=== PATIENT | male | born 1975 | race Hispanic/Latino ===

== ENCOUNTER 2019-03-16 15:24 | Inpatient (IN) | payer OTHER ==
[~2019-03-16 15:24] MED LIST: ETOMIDATE 20 MG/10 ML INJ IV ONE
[2019-03-16] MEDS ORDERED: methylPREDNISolone Sod Succinate 125 MG/2 ML INJ ONE (15:30)
[2019-03-16] MEDS ORDERED: diphenhydrAMINE 50 MG/ML VIAL ONE (15:30)
[2019-03-16] MEDS ORDERED: ADENOSINE 6 MG/2 ML INJ ONE (15:31)
[2019-03-16] MEDS ORDERED: SODIUM CHLORIDE 0.9% 1000 ML 1,000 ML ONE (15:39)
[2019-03-16] MEDS ORDERED: ETOMIDATE 20 MG/10 ML INJ IV ONE ×3 (15:43→23:55)
[2019-03-16] MEDS ORDERED: SUCCINYLCHOLINE CHLORIDE 200 MG/10 ML INJ MDV IV ONE (15:45)
[2019-03-16] MEDS ORDERED: LIP THERAPY VASELINE TP PRN (15:50)
[2019-03-16] MEDS ORDERED: MINERAL OIL/PETROLATUM, WHITE OPHTH OINT 3.5 GM OU PRN (15:50)
[2019-03-16] MEDS ORDERED: MIDAZOLAM 5 MG/5 ML INJ MDV IV NR (16:00)
[2019-03-16] MEDS ORDERED: ASPIRIN 325 MG TAB PO ONE (16:03)
[2019-03-16] MEDS ORDERED: fentaNYL DRIP Premix 2,000 MCG/100 ML BAG IV ONE (16:09)
[2019-03-16] MEDS: fentaNYL DRIP Premix 2,000 MCG/100 ML BAG IV SCH ×2 (16:10→21:30)
[2019-03-16] MEDS ORDERED: MIDAZOLAM 5 MG/5 ML INJ MDV IV ONE ×2 (16:18→23:55)
[2019-03-16] MEDS ORDERED: MAGNESIUM SULFATE 2 GM/50 ML BAG IV ONE (16:21)
[2019-03-16] MEDS ORDERED: ACETAMINOPHEN 650 MG RECT SUPP PR ONE ×2 (16:27→23:47)
[2019-03-16] MEDS ORDERED: SODIUM CHLORIDE 0.9% 1000 ML IV SOLN IV ONE (16:28)
[2019-03-16] MEDS ORDERED: ACETAMINOPHEN 325 MG RECT SUPP PR ONE ×2 (16:31→23:47)
[2019-03-16] MEDS ORDERED: ONDANSETRON 4 MG/2 ML INJ ONE (16:35)
[2019-03-16 16:38] LABS: Calcium 6.6 mg/dL (8.4-10.2)
[2019-03-16 16:39] LABS: Hematocrit 47.1 % (35.5-45.6); Hemoglobin 15.7 gm/dl (11.8-15.2); Mean Corpuscular HGB Conc 33 % (32-34); Mean Corpuscular Volume 85 fl (84-94); Red Blood Count 5.55 M/mm3 (3.65-5.03)
[2019-03-16 16:50] LABS: Free T4 (Free Thyroxine) 0.72 ng/dL (0.76-1.46)
[2019-03-16] MEDS ORDERED: cefTRIAXone/NS 2 GM/100 ML 2 GM/100 ML BAG IV ONE (16:52)
--- NOTE | 2019-03-16 16:53 | XRay Report ---
CHEST 1 VIEW 4:20 PM INDICATION / CLINICAL INFORMATION: ETT placement. Fever and vomiting. COMPARISON: None available. FINDINGS: SUPPORT DEVICES: There is an endotracheal tube with the tip 5.8 cm above the [place]. There is a nasog astric tube which is doubled back on itself at the level of the [place] returning towards the mouth wi th the tip not seen HEART / MEDIASTINUM: The heart size and pulmonary vasculature are normal. LUNGS / PLEURA: No significant pulmonary or pleural abnormality. No pneumothorax. ADDITIONAL FINDINGS: There is moderate gaseous distention of the stomach. IMPRESSION: 1. Endotracheal tube in good position. 2. Nasogastric tube doubled back on itself at the level of the [place] with the tip not seen. The tube will need to be removed/reposition. 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 Faria Signer Name: Jovan Glass MD Signed: 03/16/2019 4:49 PM Workstation Name: [id number]
[2019-03-16] MEDS: fentaNYL 100 MCG/2 ML INJ IV PRN (17:02)
[2019-03-16 17:27] LABS: Band Neutrophils # (Manual) 2.7 K/mm3; Basophils % (Manual) 0 % (0.0-1.8); Eosinophils % (Manual) 0 % (0.0-4.3); Total Cells Counted 100
[2019-03-16 17:28] LABS: Large Platelets Few; Platelet Estimate Cons; RBC Morphology Normal
[2019-03-16 17:29] LABS: Mean Platelet Volume 10.1 fl (6-12); Platelet Count 75 K/mm3 (140-440)
[2019-03-16] MEDS: NORepinephrine/NS 4 MG-250 ML 4 MG/250 ML BAG IV SCH (17:29)
[2019-03-16] MEDS: MIDAZOLAM 100 MG in SODIUM CHLORIDE 0.9% 80 ML IV SCH (17:29)
--- NOTE | 2019-03-16 17:30 | Emergency Department Report ---
ED Altered Mental Status HPI - General Stated Complaint: POSSIBLE STROKE Time Seen by Provider: 03/16/19 16:19 Source: patient, family (friend) Mode of arrival: Stretcher Limitations: Altered Mental Status - History of Present Illness Initial Comments: 43-year-old male with a past medical history of GERD and obesity presents to the hospital with alteration in mental status. Patient presents via private vehicle. He is visiting from [place] and is staying with his friend Gio Guillermo. His friend states that he has been visiting 1 week. He'll also the patient 2 days ago when he was complaining of feeling ill and has some left eye discharge. Also mentions a possibility of a right axilla abscess. The and went to stay with his girlfriend the last 2 days and this morning when he saw the patient he was ill-appearing but sleeping. When he came back around lunch time patient condition worsened. He was having trouble breathing, confused and not making sense when he spoke, very weak and could not walk on his own, and he was diaphoretic. Patient presents via private vehicle awake, able to speak his name and follow commands. He appears to have some difficulty speaking. He is cold and clammy and diaphoretic. Initially felt the patient was presented with stroke symptoms but he did not have any deficits besides difficulty speaking. Accu-Chek was normal range. Patient is placed in the monitor and noted to have SVT rhythm in the 250s. - Related Data Home Medications Medication Instructions Recorded Confirmed Last Taken Unobtainable 03/18/19 03/18/19 Unknown Allergies Allergy/AdvReac Type Severity Reaction Status Date / Time No Known Allergies Allergy Unverified 03/16/19 17:17 ED Review of Systems ROS: Stated complaint: POSSIBLE STROKE Other details as noted in HPI ED Past Medical Hx - Medications Home Medications: Home Medications Medication Instructions Recorded Confirmed Last Taken Type Unobtainable 03/18/19 03/18/19 Unknown History ED Physical Exam - Other Other exam information: Gen.: Acute distress Head: Atraumatic Eyes: left eye with yellow drainage ENT: Dry mucous membranes, posterior tonsillar swelling without exudates, no stridor, uvula midline Neck: Normal appearance, no posterior midline tenderness, no meningismus Chest: Clear to auscultation bilaterally, tachypnea Cardiovascular: Tachycardic regular rhythm Abdomen: Normal appearance, soft, nontender, no rebound or guarding, normal bowel sounds Back: Normal appearance, nontender Extremity: Full range of motion, normal appearance Neuro: Patient alert but unable to speak fluently. Able to answer questions intermittently. 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 Right axillary redness and fullness cellullits vs abscess, no fluctuance ED Course Vital Signs 03/16/19 03/16/19 03/16/19 15:26 15:28 15:30 Temperature Pulse Rate 195 H 204 H Respiratory 29 H 28 H 28 H Rate Blood Pressure 103/30 O2 Sat by Pulse 82 L 90 Oximetry 03/16/19 03/16/19 03/16/19 15:32 15:34 15:36 Temperature Pulse Rate 132 H 144 H 151 H Respiratory 32 H 29 H 19 Rate Blood Pressure 103/30 103/30 103/30 O2 Sat by Pulse 81 L 76 L 96 Oximetry 03/16/19 03/16/19 03/16/19 15:38 15:40 15:42 Temperature Pulse Rate 136 H 134 H Respiratory 41 H 57 H 55 H Rate Blood Pressure 74/54 92/55 92/55 O2 Sat by Pulse 88 89 Oximetry 03/16/19 03/16/19 03/16/19 15:44 15:46 15:48 Temperature Pulse Rate 134 H 137 H 126 H Respiratory 56 H 34 H 26 H Rate Blood Pressure 92/55 79/43 117/77 O2 Sat by Pulse 70 L 54 L Oximetry 03/16/19 03/16/19 03/16/19 15:50 15:52 15:54 Temperature Pulse Rate 135 H 126 H 122 H Respiratory 30 H 30 H 29 H Rate Blood Pressure 117/77 127/72 123/54 O2 Sat by Pulse 70 L 90 Oximetry 03/16/19 03/16/19 03/16/19 15:56 15:58 16:00 Temperature Pulse Rate 124 H 126 H 128 H Respiratory 28 H 22 19 Rate Blood Pressure 140/84 118/65 118/61 O2 Sat by Pulse 68 L 59 L 58 L Oximetry 03/16/19 03/16/19 03/16/19 16:02 16:04 16:05 Temperature Pulse Rate 128 H 128 H 132 H Respiratory 29 H 31 H Rate Blood Pressure 112/53 103/51 123/40 O2 Sat by Pulse 55 L 62 L 94 Oximetry 03/16/19 03/16/19 03/16/19 16:06 16:08 16:10 Temperature Pulse Rate 129 H 130 H 130 H Respiratory 21 45 H 39 H Rate Blood Pressure 110/56 110/56 123/40 O2 Sat by Pulse 58 L 92 85 Oximetry 03/16/19 03/16/19 03/16/19 16:12 16:14 16:16 Temperature Pulse Rate 127 H 132 H 133 H Respiratory 31 H 28 H 17 Rate Blood Pressure 123/40 106/43 106/43 O2 Sat by Pulse 94 84 Oximetry 03/16/19 03/16/19 03/16/19 16:18 16:20 16:22 Temperature Pulse Rate 132 H 133 H 130 H Respiratory 30 H 44 H 41 H Rate Blood Pressure 135/66 120/65 120/65 O2 Sat by Pulse Oximetry 03/16/19 03/16/19 03/16/19 16:24 16:25 16:26 Temperature 105 F H Pulse Rate 132 H 132 H Respiratory 14 19 Rate Blood Pressure 120/65 120/65 O2 Sat by Pulse Oximetry 03/16/19 03/16/19 03/16/19 16:28 16:30 16:32 Temperature Pulse Rate 134 H 134 H 133 H Respiratory 25 H 37 H 25 H Rate Blood Pressure 120/65 180/99 180/99 O2 Sat by Pulse 94 95 92 Oximetry 03/16/19 03/16/19 03/16/19 16:34 16:59 17:34 Temperature Pulse Rate 135 H 133 H 122 H Respiratory 43 H 36 H Rate Blood Pressure 180/99 98/50 180/99 O2 Sat by Pulse 97 93 100 Oximetry 03/16/19 03/16/19 03/16/19 18:10 18:51 18:53 Temperature 101.5 F H Pulse Rate 123 H 124 H Respiratory 20 25 H Rate Blood Pressure 93/43 93/43 O2 Sat by Pulse 100 100 Oximetry 03/16/19 03/16/19 03/16/19 18:55 18:57 18:59 Temperature Pulse Rate 124 H 124 H 124 H Respiratory 26 H 25 H 26 H Rate Blood Pressure 104/53 104/53 104/53 O2 Sat by Pulse 100 100 100 Oximetry 03/16/19 03/16/19 03/16/19 19:00 19:03 19:05 Temperature Pulse Rate 124 H 124 H 125 H Respiratory 25 H 25 H 26 H Rate Blood Pressure 108/51 108/51 105/56 O2 Sat by Pulse 100 100 100 Oximetry 03/16/19 03/16/19 03/16/19 19:07 19:09 19:10 Temperature Pulse Rate 125 H 124 H 125 H Respiratory 24 25 H 25 H Rate Blood Pressure 105/56 105/56 108/54 O2 Sat by Pulse 100 100 100 Oximetry 03/16/19 03/16/19 03/16/19 19:13 19:15 19:17 Temperature Pulse Rate 126 H 125 H 125 H Respiratory 22 25 H 25 H Rate Blood Pressure 108/54 108/45 108/45 O2 Sat by Pulse 100 100 100 Oximetry 03/16/19 03/16/19 03/16/19 19:19 19:20 19:23 Temperature Pulse Rate 125 H 125 H 126 H Respiratory 25 H 24 27 H Rate Blood Pressure 108/45 93/56 93/56 O2 Sat by Pulse 100 100 100 Oximetry 03/16/19 03/16/19 03/16/19 19:25 19:27 19:29 Temperature Pulse Rate 125 H 125 H 126 H Respiratory 28 H 25 H 24 Rate Blood Pressure 104/59 104/59 104/59 O2 Sat by Pulse 100 100 100 Oximetry 03/16/19 03/16/19 03/16/19 19:30 19:33 19:35 Temperature Pulse Rate 126 H 126 H 126 H Respiratory 23 24 25 H Rate Blood Pressure 89/53 105/54 110/60 O2 Sat by Pulse 100 100 100 Oximetry 03/16/19 03/16/19 03/16/19 19:37 19:39 19:40 Temperature Pulse Rate 126 H 126 H 126 H Respiratory 21 29 H 20 Rate Blood Pressure 110/60 110/60 97/57 O2 Sat by Pulse 100 100 100 Oximetry 03/16/19 03/16/19 03/16/19 19:43 19:45 19:47 Temperature Pulse Rate 126 H 126 H 127 H Respiratory 19 25 H 25 H Rate Blood Pressure 97/57 92/59 92/59 O2 Sat by Pulse 100 100 100 Oximetry 03/16/19 03/16/19 03/16/19 19:49 19:50 19:53 Temperature Pulse Rate 127 H 127 H 127 H Respiratory 26 H 24 25 H Rate Blood Pressure 92/59 86/55 86/55 O2 Sat by Pulse 100 100 100 Oximetry 03/16/19 03/16/19 03/16/19 19:55 19:57 19:59 Temperature Pulse Rate 127 H 127 H 127 H Respiratory 24 24 25 H Rate Blood Pressure 106/54 106/54 106/54 O2 Sat by Pulse 100 100 99 Oximetry 03/16/19 03/16/19 03/16/19 20:00 20:03 20:05 Temperature Pulse Rate 128 H 127 H 128 H Respiratory 27 H 28 H 30 H Rate Blood Pressure 103/55 103/55 110/54 O2 Sat by Pulse 99 100 100 Oximetry 03/16/19 03/16/19 03/16/19 20:07 20:09 20:10 Temperature Pulse Rate 127 H 127 H 128 H Respiratory 27 H 25 H 25 H Rate Blood Pressure 110/54 110/54 103/54 O2 Sat by Pulse 100 100 100 Oximetry 03/16/19 03/16/19 03/16/19 20:13 20:15 20:17 Temperature Pulse Rate 127 H 127 H 127 H Respiratory 25 H 26 H 25 H Rate Blood Pressure 103/54 107/51 107/51 O2 Sat by Pulse 100 100 100 Oximetry 03/16/19 03/16/19 03/16/19 20:18 20:19 20:20 Temperature 103 F H Pulse Rate 127 H 127 H Respiratory 24 25 H Rate Blood Pressure 107/51 101/54 O2 Sat by Pulse 100 100 Oximetry 03/16/19 03/16/19 03/16/19 20:23 20:25 20:27 Temperature Pulse Rate 129 H 127 H 127 H Respiratory 27 H 25 H 25 H Rate Blood Pressure 101/54 99/45 99/45 O2 Sat by Pulse 100 99 100 Oximetry 03/16/19 03/16/19 03/16/19 20:29 20:30 20:36 Temperature Pulse Rate 127 H 127 H 127 H Respiratory 26 H 27 H 19 Rate Blood Pressure 99/45 99/45 102/45 O2 Sat by Pulse 99 98 100 Oximetry 03/16/19 03/16/19 03/16/19 20:40 20:45 20:50 Temperature Pulse Rate 128 H 127 H 127 H Respiratory 25 H 25 H 28 H Rate Blood Pressure 107/41 96/44 O2 Sat by Pulse 98 99 100 Oximetry 03/16/19 03/16/19 03/16/19 20:55 21:00 21:05 Temperature Pulse Rate 127 H 128 H 127 H Respiratory 27 H 25 H 32 H Rate Blood Pressure 92/45 93/46 93/46 O2 Sat by Pulse 97 86 87 Oximetry 03/16/19 03/16/19 03/16/19 21:10 21:15 21:20 Temperature Pulse Rate 127 H 127 H 127 H Respiratory 33 H 29 H 25 H Rate Blood Pressure 99/49 93/45 98/39 O2 Sat by Pulse 63 L 21 L 74 L Oximetry 03/16/19 03/16/19 03/16/19 21:25 21:30 21:35 Temperature Pulse Rate 128 H 128 H 127 H Respiratory 25 H 29 H 33 H Rate Blood Pressure 98/39 93/45 89/39 O2 Sat by Pulse 99 100 100 Oximetry 03/16/19 03/16/19 03/16/19 21:40 21:45 21:51 Temperature Pulse Rate 128 H 128 H 128 H Respiratory 38 H 45 H 28 H Rate Blood Pressure 95/46 95/46 90/37 O2 Sat by Pulse 100 100 100 Oximetry 03/16/19 03/16/19 03/16/19 21:55 22:01 22:05 Temperature Pulse Rate 128 H 129 H 129 H Respiratory 43 H 53 H 52 H Rate Blood Pressure 92/39 99/37 93/45 O2 Sat by Pulse 100 100 100 Oximetry 03/16/19 03/16/19 03/16/19 22:11 22:15 22:20 Temperature Pulse Rate 129 H 129 H 129 H Respiratory 46 H 35 H 32 H Rate Blood Pressure 87/39 87/39 86/38 O2 Sat by Pulse 100 100 100 Oximetry 03/16/19 03/16/19 03/16/19 22:25 22:30 22:35 Temperature Pulse Rate 129 H 129 H 129 H Respiratory 56 H 29 H 42 H Rate Blood Pressure 86/38 88/41 88/41 O2 Sat by Pulse 100 100 100 Oximetry 03/16/19 03/16/19 03/16/19 22:41 22:45 22:50 Temperature Pulse Rate 129 H 129 H 129 H Respiratory 56 H 52 H 46 H Rate Blood Pressure 77/38 72/43 80/37 O2 Sat by Pulse 100 100 100 Oximetry 03/16/19 03/16/19 03/16/19 22:55 23:00 23:05 Temperature Pulse Rate 133 H 130 H 130 H Respiratory 36 H 24 28 H Rate Blood Pressure 76/45 86/41 83/36 O2 Sat by Pulse 100 100 99 Oximetry 03/16/19 03/16/19 03/16/19 23:10 23:15 23:20 Temperature Pulse Rate 131 H 131 H 131 H Respiratory 32 H 36 H 34 H Rate Blood Pressure 88/46 79/43 86/47 O2 Sat by Pulse 99 99 98 Oximetry 03/16/19 03/16/19 03/16/19 23:25 23:30 23:35 Temperature Pulse Rate 131 H 132 H 132 H Respiratory 53 H 40 H 56 H Rate Blood Pressure 90/48 84/47 83/49 O2 Sat by Pulse 98 97 97 Oximetry 03/16/19 03/16/19 03/16/19 23:40 23:45 23:50 Temperature Pulse Rate 131 H 131 H 132 H Respiratory 25 H 40 H 32 H Rate Blood Pressure 93/53 91/53 92/53 O2 Sat by Pulse 94 96 94 Oximetry 03/16/19 03/17/19 23:55 00:00 Temperature 105.2 F H Pulse Rate 131 H 131 H Respiratory 57 H 57 H Rate Blood Pressure 94/50 86/49 O2 Sat by Pulse 96 95 Oximetry - Reevaluation(s) Reevaluation #1: 03/16/19 I was at the bedside immediately upon patient's arrival. The alarm security or surveillance monitor revealed a SVT rate in the 250s. Patient had to have his chest shaved so that paddles with stick to his chest. Stat IV access was obtained. Patient was informed that we will be giving him medications and shocking him. Patient received etomidate 10 mg IV followed by a 50 J synchronized shock of the rhythm deteriorated to a polymorphic V. tach and then monomorphic V. tach and then patient was defibrillated at 325 J. Patient rhythm then became sinus. Patient remained tachypnea and also so preparations made for intubation. Patient started to become a little bit more alert as etomidate wore off however he was still confused, tachypnea, and clammy. Patient was then intubated after rec eiving etomidate 20 mg followed by succinylcholine 100 mg. Initial vital signs after conversion of rhythm to sinus showed a stable blood pressure. Central line was placed due to patient's acute presentation and illness and labs were obtained. Cardiology was consult this that initial tachycardic rhythm. Dr. Pitts came to the bedside to evaluate patient. Rectal temp was checked and showed a temp of 105. We now suspect that patient had SVT secondary to sepsis. Patient received ice packs to the groin and axilla and 975 mg of rectal Tylenol was administered. Sepsis protocol was initiated including 30 mg per KG bolus of normal saline. Patient was apparently treated with Rocephin 2 g as well as vancomycin to cover for meningitis due to unknown source and fever in the setting of altered mental status. Nurse was able to contact patient's ex- who reported that he only had a hist ory of GERD he had no known allergies. He did receive a call from the patient's brother Valente Caballero who lives in [place]. He was requesting information about the patient. There is no current healthcare proxy. Patient has a 8-year-old son and is estranged from his ex- and estranged from his family. They were given information the patient is critical in the ED. contact numbers of people who provided HPI Brother: Valente Caballero [phone] Friend who brought pt to the ED: Gio Huff [phone] - Consultations Consultation #1: After shocking the patient cardiology was consulted and Dr. Pitts came to the bedside. He suspects sepsis as a cause of patient's arrhythmia. 03/16/19 18:42 case d/w DR ulloa critical care attending. Informed of crtitical status and lab results. ct pending 03/16/19 19:34 case d/w Nephrology Dr beck, he will place additional orders 03/16/19 29:[address] Dow general surgeon. 03/16/19 20:41 - Central Line Placement Right Femoral Consent Obtained: emergent situation Time Out Performed: Yes Patient Placed on Monitor/Pulse Ox: Yes MD Prep: mask, gown, gloves Central Line Prep: Chlorhexidine scrub Local Anesthesia Used: Lidocaine 1% Amount of Anesthesia Used (mls): 5 Ultrasound Used for Placement: No Central Line Lumen Inserted: triple Bloods Obtained for Lab: Yes Central Line Position: good blood return Dressing Applied: Tegaderm Patient Tolerated Procedure: well Complications: none - Intubation Time Out Performed: Yes Sedative: Etomidate Mg Given: 20 Paralytic: Succinylcholine Mg Given: 100 Laryngoscope: Constantino Size: 4 ET Tube Size: 7.5 Tube Secured Depth (cm): 22 Tube Secured Location: teeth Tube Placement Confirmation: visualized tube passing t, equal breath sounds bilat, no breath sounds over epi, confirmation by capnometr Patient Tolerated Procedure: well Intubation Complications: none - Lab Data Result diagrams: 03/19/19 04:00 03/19/19 04:00 Lab Results 03/16/19 03/16/19 03/16/19 Range/Units 15:32 16:03 16:05 WBC 27.0 H (4.5-11.0) K/mm3 RBC 5.55 H (3.65-5.03) M/mm3 Hgb 15.7 H (11.8-15.2) gm/dl Hct 47.1 H (35.5-45.6) % MCV 85 (84-94) fl MCH 28 (28-32) pg MCHC 33 (32-34) % RDW 15.0 (13.2-15.2) % Plt Count 75 L (140-440) K/mm3 Add Manual Diff Complete Total Counted 100 Seg Neutrophils % 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 Seg Neuts % (Manual) 85.0 H (40.0-70.0) % Band Neutrophils % 10.0 % Lymphocytes % (Manual) 2.0 L (13.4-35.0) % Reactive Lymphs % (Man) 0 % Monocytes % (Manual) 3.0 (0.0-7.3) % Eosinophils % (Manual) 0 (0.0-4.3) % Basophils % (Manual) 0 (0.0-1.8) % Metamyelocytes % 0 % Myelocytes % 0 % Promyelocytes % 0 % Blast Cells % 0 % Nucleated RBC % Not Reportable Seg Neutrophils # Man 23.0 H (1.8-7.7) K/mm3 Band Neutrophils # 2.7 K/mm3 Lymphocytes # (Manual) 0.5 L (1.2-5.4) K/mm3 Abs React Lymphs (Man) 0.0 K/mm3 Monocytes # (Manual) 0.8 (0.0-0.8) K/mm3 Eosinophils # (Manual) 0.0 (0.0-0.4) K/mm3 Basophils # (Manual) 0.0 (0.0-0.1) K/mm3 Metamyelocytes # 0.0 K/mm3 Myelocytes # 0.0 K/mm3 Promyelocytes # 0.0 K/mm3 Blast Cells # 0.0 K/mm3 WBC Morphology Not Reportable Hypersegmented Neuts Not Reportable Hyposegmented Neuts Not Reportable Hypogranular Neuts Not Reportable Smudge Cells Not Reportable Toxic Granulation Not Reportable Toxic Vacuolation Not Reportable Dohle Bodies Not Reportable Pelger-Huet Anomaly Not Reportable Joyce Rods Not Reportable Platelet Estimate Cons Clumped Platelets Not Reportable Plt Clumps, EDTA Not Reportable Large Platelets Few Giant Platelets Not Reportable Platelet Satelliting Not Reportable Plt Morphology Comment Not Reportable RBC Morphology Normal Dimorphic RBCs Not Reportable Polychromasia Not Reportable Hypochromasia Not Reportable Poikilocytosis Not Reportable Anisocytosis Not Reportable Microcytosis Not Reportable Macrocytosis Not Reportable Spherocytes Not Reportable Pappenheimer Bodies Not Reportable Sickle Cells Not Reportable Target Cells Not Reportable Tear Drop Cells Not Reportable Ovalocytes Not Reportable Helmet Cells Not Reportable Shrestha-Rosa Sanchez Bodies Not Reportable [place] Rings Not Reportable [place] Cells Not Reportable Bite Cells Not Reportable Crenated Cell Not Reportable Elliptocytes Not Reportable Acanthocytes (Spur) Not Reportable Rouleaux Not Reportable Hemoglobin C Crystals Not Reportable Schistocytes Not Reportable Malaria parasites Not Reportable Phil Bodies Not Reportable Hem Pathologist Commnt No PT (12.2-14.9) Sec. INR (0.87-1.13) APTT (24.2-36.6) Sec. POC ABG pH (7.35-7.45) POC ABG pCO2 (35-45) POC ABG pO2 (80-105) POC ABG HCO3 (22-26 mml/L) POC ABG Total CO2 (23-27mmol/L) POC ABG O2 Sat POC ABG Base Excess ((-2) - (+3)mmol/L) FiO2 % Sodium 127 L (137-145) mmol/L Potassium 4.3 (3.6-5.0) mmol/L Chloride 87.8 L (98-107) mmol/L Carbon Dioxide 17 L (22-30) mmol/L Anion Gap 27 mmol/L BUN 49 H (9-20) mg/dL Creatinine 5.8 H (0.8-1.5) mg/dL Estimated GFR 13 ml/min BUN/Creatinine Ratio 8 % Glucose 150 H (75-100) mg/dL POC Glucose 118 H (70-105) Lactic Acid (0.7-2.0) mmol/L Calcium 6.6 L (8.4-10.2) mg/dL Magnesium 1.10 L (1.7-2.3) mg/dL Total Bilirubin (0.1-1.2) mg/dL Direct Bilirubin (0-0.2) mg/dL Indirect Bilirubin mg/dL AST (5-40) units/L ALT (7-56) units/L Alkaline Phosphatase (35-129) units/L Total Creatine Kinase 98975 H (55-170) units/L CK-MB (CK-2) (0.0-4.0) ng/mL CK-MB (CK-2) Rel Index (0-4) Troponin T 0.023 (0.00-0.029) ng/mL Total Protein (6.3-8.2) g/dL Albumin (3.9-5) g/dL Albumin/Globulin Ratio % TSH (0.270-4.200) mlU/mL Free T4 (0.76-1.46) ng/dL Salicylates (2.8-20.0) mg/dL Acetaminophen (10.0-30.0) ug/mL Plasma/Serum Alcohol (0-0.07) % 03/16/19 03/16/19 03/16/19 Range/Units 16:59 17:05 17:05 WBC (4.5-11.0) K/mm3 RBC (3.65-5.03) M/mm3 Hgb (11.8-15.2) gm/dl Hct (35.5-45.6) % MCV (84-94) fl MCH (28-32) pg MCHC (32-34) % RDW (13.2-15.2) % Plt Count (140-440) K/mm3 Add Manual Diff Total Counted Seg Neutrophils % Seg Neuts % (Manual) (40.0-70.0) % Band Neutrophils % % Lymphocytes % (Manual) (13.4-35.0) % Reactive Lymphs % (Man) % Monocytes % (Manual) (0.0-7.3) % Eosinophils % (Manual) (0.0-4.3) % Basophils % (Manual) (0.0-1.8) % Metamyelocytes % % Myelocytes % % Promyelocytes % % Blast Cells % % Nucleated RBC % Seg Neutrophils # Man (1.8-7.7) K/mm3 Band Neutrophils # K/mm3 Lymphocytes # (Manual) (1.2-5.4) K/mm3 Abs React Lymphs (Man) K/mm3 Monocytes # (Manual) (0.0-0.8) K/mm3 Eosinophils # (Manual) (0.0-0.4) K/mm3 Basophils # (Manual) (0.0-0.1) K/mm3 Metamyelocytes # K/mm3 Myelocytes # K/mm3 Promyelocytes # K/mm3 Blast Cells # K/mm3 WBC Morphology Hypersegmented Neuts Hyposegmented Neuts Hypogranular Neuts Smudge Cells Toxic Granulation Toxic Vacuolation Dohle Bodies Pelger-Huet Anomaly Joyce Rods Platelet Estimate Clumped Platelets Plt Clumps, EDTA Large Platelets Giant Platelets Platelet Satelliting Plt Morphology Comment RBC Morphology Dimorphic RBCs Polychromasia Hypochromasia Poikilocytosis Anisocytosis Microcytosis Macrocytosis Spherocytes Pappenheimer Bodies Sickle Cells Target Cells Tear Drop Cells Ovalocytes Helmet Cells Shrestha-Rosa Sanchez Bodies [place] Rings Samantha Cells Bite Cells Crenated Cell Elliptocytes Acanthocytes (Spur) Rouleaux Hemoglobin C Crystals Schistocytes Malaria parasites Phil Bodies Hem Pathologist Commnt PT (12.2-14.9) Sec. INR (0.87-1.13) APTT (24.2-36.6) Sec. POC ABG pH 7.297 L (7.35-7.45) POC ABG pCO2 33.0 L (35-45) POC ABG pO2 104 (80-105) POC ABG HCO3 16.1 (22-26 mml/L) POC ABG Total CO2 17 (23-27mmol/L) POC ABG O2 Sat 97 POC ABG Base Excess -10 ((-2) - (+3)mmol/L) FiO2 100 % Sodium (137-145) mmol/L Potassium (3.6-5.0) mmol/L Chloride (98-107) mmol/L Carbon Dioxide (22-30) mmol/L Anion Gap mmol/L BUN (9-20) mg/dL Creatinine (0.8-1.5) mg/dL Estimated GFR ml/min BUN/Creatinine Ratio % Glucose (75-100) mg/dL POC Glucose (70-105) Lactic Acid (0.7-2.0) mmol/L Calcium (8.4-10.2) mg/dL Magnesium (1.7-2.3) mg/dL Total Bilirubin (0.1-1.2) mg/dL Direct Bilirubin (0-0.2) mg/dL Indirect Bilirubin mg/dL AST (5-40) units/L ALT (7-56) units/L Alkaline Phosphatase (35-129) units/L Total Creatine Kinase 26571 H (55-170) units/L CK-MB (CK-2) 83.1 H (0.0-4.0) ng/mL CK-MB (CK-2) Rel Index 0.1 (0-4) Troponin T (0.00-0.029) ng/mL Total Protein (6.3-8.2) g/dL Albumin (3.9-5) g/dL Albumin/Globulin Ratio % TSH 2.200 (0.270-4.200) mlU/mL Free T4 0.72 L (0.76-1.46) ng/dL Salicylates (2.8-20.0) mg/dL Acetaminophen (10.0-30.0) ug/mL Plasma/Serum Alcohol (0-0.07) % 03/16/19 03/16/19 03/16/19 Range/Units 17:05 17:05 17:05 WBC (4.5-11.0) K/mm3 RBC (3.65-5.03) M/mm3 Hgb (11.8-15.2) gm/dl Hct (35.5-45.6) % MCV (84-94) fl MCH (28-32) pg MCHC (32-34) % RDW (13.2-15.2) % Plt Count (140-440) K/mm3 Add Manual Diff Total Counted Seg Neutrophils % Seg Neuts % (Manual) (40.0-70.0) % Band Neutrophils % % Lymphocytes % (Manual) (13.4-35.0) % Reactive Lymphs % (Man) % Monocytes % (Manual) (0.0-7.3) % Eosinophils % (Manual) (0.0-4.3) % Basophils % (Manual) (0.0-1.8) % Metamyelocytes % % Myelocytes % % Promyelocytes % % Blast Cells % % Nucleated RBC % Seg Neutrophils # Man (1.8-7.7) K/mm3 Band Neutrophils # K/mm3 Lymphocytes # (Manual) (1.2-5.4) K/mm3 Abs React Lymphs (Man) K/mm3 Monocytes # (Manual) (0.0-0.8) K/mm3 Eosinophils # (Manual) (0.0-0.4) K/mm3 Basophils # (Manual) (0.0-0.1) K/mm3 Metamyelocytes # K/mm3 Myelocytes # K/mm3 Promyelocytes # K/mm3 Blast Cells # K/mm3 WBC Morphology Hypersegmented Neuts Hyposegmented Neuts Hypogranular Neuts Smudge Cells Toxic Granulation Toxic Vacuolation Dohle Bodies Pelger-Huet Anomaly Joyce Rods Platelet Estimate Clumped Platelets Plt Clumps, EDTA Large Platelets Giant Platelets Platelet Satelliting Plt Morphology Comment RBC Morphology Dimorphic RBCs Polychromasia Hypochromasia Poikilocytosis Anisocytosis Microcytosis Macrocytosis Spherocytes Pappenheimer Bodies Sickle Cells Target Cells Tear Drop Cells Ovalocytes Helmet Cells Shrestha-Rosa Sanchez Bodies [place] Samantha Cells Bite Cells Crenated Cell Elliptocytes Acanthocytes (Spur) Rouleaux Hemoglobin C Crystals Schistocytes Malaria parasites Phil Bodies Hem Pathologist Commnt PT (12.2-14.9) Sec. INR (0.87-1.13) APTT (24.2-36.6) Sec. POC ABG pH (7.35-7.45) POC ABG pCO2 (35-45) POC ABG pO2 (80-105) POC ABG HCO3 (22-26 mml/L) POC ABG Total CO2 (23-27mmol/L) POC ABG O2 Sat POC ABG Base Excess ((-2) - (+3)mmol/L) FiO2 % Sodium (137-145) mmol/L Potassium (3.6-5.0) mmol/L Chloride (98-107) mmol/L Carbon Dioxide (22-30) mmol/L Anion Gap mmol/L BUN (9-20) mg/dL Creatinine (0.8-1.5) mg/dL Estimated GFR ml/min BUN/Creatinine Ratio % Glucose (75-100) mg/dL POC Glucose (70-105) Lactic Acid 5.10 H* (0.7-2.0) mmol/L Calcium (8.4-10.2) mg/dL Magnesium (1.7-2.3) mg/dL Total Bilirubin (0.1-1.2) mg/dL Direct Bilirubin (0-0.2) mg/dL Indirect Bilirubin mg/dL AST (5-40) units/L ALT (7-56) units/L Alkaline Phosphatase (35-129) units/L Total Creatine Kinase (55-170) units/L CK-MB (CK-2) (0.0-4.0) ng/mL CK-MB (CK-2) Rel Index (0-4) Troponin T (0.00-0.029) ng/mL Total Protein (6.3-8.2) g/dL Albumin (3.9-5) g/dL Albumin/Globulin Ratio % TSH (0.270-4.200) mlU/mL Free T4 (0.76-1.46) ng/dL Salicylates < 0.3 L (2.8-20.0) mg/dL Acetaminophen < 5.0 L (10.0-30.0) ug/mL Plasma/Serum Alcohol (0-0.07) % 03/16/19 03/16/19 03/16/19 Range/Units 17:05 17:05 17:05 WBC (4.5-11.0) K/mm3 RBC (3.65-5.03) M/mm3 Hgb (11.8-15.2) gm/dl Hct (35.5-45.6) % MCV (84-94) fl MCH (28-32) pg MCHC (32-34) % RDW (13.2-15.2) % Plt Count (140-440) K/mm3 Add Manual Diff Total Counted Seg Neutrophils % Seg Neuts % (Manual) (40.0-70.0) % Band Neutrophils % % Lymphocytes % (Manual) (13.4-35.0) % Reactive Lymphs % (Man) % Monocytes % (Manual) (0.0-7.3) % Eosinophils % (Manual) (0.0-4.3) % Basophils % (Manual) (0.0-1.8) % Metamyelocytes % % Myelocytes % % Promyelocytes % % Blast Cells % % Nucleated RBC % Seg Neutrophils # Man (1.8-7.7) K/mm3 Band Neutrophils # K/mm3 Lymphocytes # (Manual) (1.2-5.4) K/mm3 Abs React Lymphs (Man) K/mm3 Monocytes # (Manual) (0.0-0.8) K/mm3 Eosinophils # (Manual) (0.0-0.4) K/mm3 Basophils # (Manual) (0.0-0.1) K/mm3 Metamyelocytes # K/mm3 Myelocytes # K/mm3 Promyelocytes # K/mm3 Blast Cells # K/mm3 WBC Morphology Hypersegmented Neuts Hyposegmented Neuts Hypogranular Neuts Smudge Cells Toxic Granulation Toxic Vacuolation Dohle Bodies Pelger-Huet Anomaly Joyce Rods Platelet Estimate Clumped Platelets Plt Clumps, EDTA Large Platelets Giant Platelets Platelet Satelliting Plt Morphology Comment RBC Morphology Dimorphic RBCs Polychromasia Hypochromasia Poikilocytosis Anisocytosis Microcytosis Macrocytosis Spherocytes Pappenheimer Bodies Sickle Cells Target Cells Tear Drop Cells Ovalocytes Helmet Cells Shrestha-Rosa Sanchez Bodies [place] Samantha Cells Bite Cells Crenated Cell Elliptocytes Acanthocytes (Spur) Rouleaux Hemoglobin C Crystals Schistocytes Malaria parasites Phil Bodies Hem Pathologist Commnt PT 15.9 H (12.2-14.9) Sec. INR 1.30 H (0.87-1.13) APTT 31.7 (24.2-36.6) Sec. POC ABG pH (7.35-7.45) POC ABG pCO2 (35-45) POC ABG pO2 (80-105) POC ABG HCO3 (22-26 mml/L) POC ABG Total CO2 (23-27mmol/L) POC ABG O2 Sat POC ABG Base Excess ((-2) - (+3)mmol/L) FiO2 % Sodium (137-145) mmol/L Potassium (3.6-5.0) mmol/L Chloride (98-107) mmol/L Carbon Dioxide (22-30) mmol/L Anion Gap mmol/L BUN (9-20) mg/dL Creatinine (0.8-1.5) mg/dL Estimated GFR ml/min BUN/Creatinine Ratio % Glucose (75-100) mg/dL POC Glucose (70-105) Lactic Acid (0.7-2.0) mmol/L Calcium (8.4-10.2) mg/dL Magnesium (1.7-2.3) mg/dL Total Bilirubin 6.20 H (0.1-1.2) mg/dL Direct Bilirubin 5.9 H (0-0.2) mg/dL Indirect Bilirubin 0.3 mg/dL AST 800 H (5-40) units/L ALT 120 H (7-56) units/L Alkaline Phosphatase 51 (35-129) units/L Total Creatine Kinase (55-170) units/L CK-MB (CK-2) (0.0-4.0) ng/mL CK-MB (CK-2) Rel Index (0-4) Troponin T (0.00-0.029) ng/mL Total Protein 4.4 L (6.3-8.2) g/dL Albumin 2.4 L (3.9-5) g/dL Albumin/Globulin Ratio 1.2 % TSH (0.270-4.200) mlU/mL Free T4 (0.76-1.46) ng/dL Salicylates (2.8-20.0) mg/dL Acetaminophen (10.0-30.0) ug/mL Plasma/Serum Alcohol < 0.01 (0-0.07) % 03/16/19 03/16/19 Range/Units 20:35 21:45 WBC (4.5-11.0) K/mm3 RBC (3.65-5.03) M/mm3 Hgb (11.8-15.2) gm/dl Hct (35.5-45.6) % MCV (84-94) fl MCH (28-32) pg MCHC (32-34) % RDW (13.2-15.2) % Plt Count (140-440) K/mm3 Add Manual Diff Total Counted Seg Neutrophils % Seg Neuts % (Manual) (40.0-70.0) % Band Neutrophils % % Lymphocytes % (Manual) (13.4-35.0) % Reactive Lymphs % (Man) % Monocytes % (Manual) (0.0-7.3) % Eosinophils % (Manual) (0.0-4.3) % Basophils % (Manual) (0.0-1.8) % Metamyelocytes % % Myelocytes % % Promyelocytes % % Blast Cells % % Nucleated RBC % Seg Neutrophils # Man (1.8-7.7) K/mm3 Band Neutrophils # K/mm3 Lymphocytes # (Manual) (1.2-5.4) K/mm3 Abs React Lymphs (Man) K/mm3 Monocytes # (Manual) (0.0-0.8) K/mm3 Eosinophils # (Manual) (0.0-0.4) K/mm3 Basophils # (Manual) (0.0-0.1) K/mm3 Metamyelocytes # K/mm3 Myelocytes # K/mm3 Promyelocytes # K/mm3 Blast Cells # K/mm3 WBC Morphology Hypersegmented Neuts Hyposegmented Neuts Hypogranular Neuts Smudge Cells Toxic Granulation Toxic Vacuolation Dohle Bodies Pelger-Huet Anomaly Joyce Rods Platelet Estimate Clumped Platelets Plt Clumps, EDTA Large Platelets Giant Platelets Platelet Satelliting Plt Morphology Comment RBC Morphology Dimorphic RBCs Polychromasia Hypochromasia Poikilocytosis Anisocytosis Microcytosis Macrocytosis Spherocytes Pappenheimer Bodies Sickle Cells Target Cells Tear Drop Cells Ovalocytes Helmet Cells Shrestha-Rosa Sanchez Bodies [place] Cells Bite Cells Crenated Cell Elliptocytes Acanthocytes (Spur) Rouleaux Hemoglobin C Crystals Schistocytes Malaria parasites Phil Bodies Hem Pathologist Commnt PT (12.2-14.9) Sec. INR (0.87-1.13) APTT (24.2-36.6) Sec. POC ABG pH (7.35-7.45) POC ABG pCO2 (35-45) POC ABG pO2 (80-105) POC ABG HCO3 (22-26 mml/L) POC ABG Total CO2 (23-27mmol/L) POC ABG O2 Sat POC ABG Base Excess ((-2) - (+3)mmol/L) FiO2 % Sodium (137-145) mmol/L Potassium (3.6-5.0) mmol/L Chloride (98-107) mmol/L Carbon Dioxide (22-30) mmol/L Anion Gap mmol/L BUN (9-20) mg/dL Creatinine (0.8-1.5) mg/dL Estimated GFR ml/min BUN/Creatinine Ratio % Glucose (75-100) mg/dL POC Glucose (70-105) Lactic Acid 3.30 H* 3.30 H* (0.7-2.0) mmol/L Calcium (8.4-10.2) mg/dL Magnesium (1.7-2.3) mg/dL Total Bilirubin (0.1-1.2) mg/dL Direct Bilirubin (0-0.2) mg/dL Indirect Bilirubin mg/dL AST (5-40) units/L ALT (7-56) units/L Alkaline Phosphatase (35-129) units/L Total Creatine Kinase (55-170) units/L CK-MB (CK-2) (0.0-4.0) ng/mL CK-MB (CK-2) Rel Index (0-4) Troponin T (0.00-0.029) ng/mL Total Protein (6.3-8.2) g/dL Albumin (3.9-5) g/dL Albumin/Globulin Ratio % TSH (0.270-4.200) mlU/mL Free T4 (0.76-1.46) ng/dL Salicylates (2.8-20.0) mg/dL Acetaminophen (10.0-30.0) ug/mL Plasma/Serum Alcohol (0-0.07) % - EKG Data -: EKG Interpreted by Vt EKG shows normal: sinus rhythm, ST-T waves (no stemi) Rate: tachycardia (126) When compared to previous EKG there are: no significant change - Radiology Data Radiology results: report reviewed CHEST 1 VIEW 4:20 PM INDICATION / CLINICAL INFORMATION: ETT placement. Fever and vomiting. COMPARISON: None available. FINDINGS: SUPPORT DEVICES: There is an endotracheal tube with the tip 5.8 cm above the salina. There is a nasogastric tube which is doubled back on itself at the level of the salina returning towards the mouth with the tip not seen HEART / MEDIASTINUM: The heart size and pulmonary vasculature are normal. LUNGS / PLEURA: No significant pulmonary or pleural abnormality. No pneumothorax. ADDITIONAL FINDINGS: There is moderate gaseous distention of the stomach. IMPRESSION: 1. Endotracheal tube in good position. 2. Nasogastric tube doubled back on itself at the level of the salina with the tip not seen. The tube will need to be removed/reposition. CT of the chest, abdomen and pelvis without contrast INDICATION / CLINICAL INFORMATION: Fever and altered mental status. TECHNIQUE: All CT scans at this location are performed using CT dose reduction for ALARA by means of automated exposure control. COMPARISON: None available. FINDINGS: CHEST: There is moderate parenchymal disease in both lower lobes posteromedially with air bronchograms. T here is no evidence of pleural effusion. The lungs are otherwise clear. No osseous abnormality is seen. ABDOMEN: There are multiple moderately distended small bowel loops in the upper to mid abdomen anteriorly which contain gas. There is mild associated wall thickening. I see no evidence of pneumatosis, pneumoperitoneum or ascites. The liver, spleen, gallbladder, bile ducts, pancreas, adrenal glands and kidneys are normal. PELVIS: There is a Edmond catheter in a collapsed urinary bladder. A normal appendix is present and there is no evidence of diverticulitis. I do not identify a hernia. No abnormal mass or fluid collection is seen. No acute osseous abnormality is identified. IMPRESSION: 1. Parenchymal disease in both lower lobes posteromedially may be related to aspiration pneumonia. 2. Moderately dilated small bowel bowel loops in the mid to upper abdomen anteriorly with mild associated bowel wall thickening. Localized enteritis and small bowel ischemia should be considered. CT head/brain wo con INDICATION / CLINICAL INFORMATION: 43 years Male; fever, ams. TECHNIQUE: Routine CT head without contrast. All CT scans at this location are performed using CT dose reduction for ALARA by means of automated exposure control. Exam is suboptimal, related to patient positioning. COMPARISON: None. FINDINGS: BRAIN / INTRACRANIAL CONTENTS: Some component of diffuse cerebral edema cannot entirely be excluded. Ventricular system is decreased in size. The basal cisterns are decreased in size, but remain patent. The superior vermian cistern is well visualized on sagittal reconstructions. Otherwise, no acute hemorrhage, mass effect, midline shift, hydrocephalus, or acute, large territorial infarct. No chronic infarct or focal atrophy. Normal brain volume and ventricular/sulcal size for age. No significant white matter abnormality. CRANIOCERVICAL JUNCTION: No significant abnormality. ORBITS: No significant abno rmality of visualized orbits. SINUSES / MASTOIDS: There are desiccated secretions in the nasopharynx. Patient is intubated. ADDITIONAL FINDINGS: None. IMPRESSION: 1. Some component of diffuse cerebral edema cannot be excluded. However, this finding may be artifactual secondary to patient positioning. Close follow-up is recommended. No definitive signs of herniation or large territorial infarct at this time. 2. Otherwise, no focal mass, hemorrhage, hydrocephalus, or large infarct seen. - Medical Decision Making See clinical course. Patient is very sick. We discussed case with the patient's brother at 8:15 PM the patient's brother and informed him that patient is very sick and may possibly from his illness. Case was discussed with nephrology, critical care attending, cardiology, and surgeon. - Differential Diagnosis allergic reaction, CVA, sepsis, substance abuse,NMS, Serotonin syndrome TTP Critical Care Time: Yes Critical care time in (mins) excluding proc time.: 75 Critical care attestation.: If time is entered above; I have spent that time in minutes in the direct care of this critically ill patient, excluding procedure time. ED Disposition Clinical Impression: Septic shock, Multi-organ system dysfunction, Rhabdomyolysis, Acute renal failure, Thrombocytopenia, Hypomagnesemia, SVT (supraventricular tachycardia), Polymorphic ventricular tachycardia, Aspiration pneumonia Disposition: OP ADMIT IP TO THIS HOSP Is pt being admited?: Yes Condition: Stable Time of Disposition: 20:43 (hospitalist)
[2019-03-16 17:41] LABS: INR 1.3 (0.87-1.13)
[2019-03-16 17:42] LABS: Partial Thromboplastin Time 31.7 Sec. (24.2-36.6)
[2019-03-16 17:44] LABS: Creatine Kinase MB 83.1 ng/mL (0.0-4.0)
[2019-03-16 17:46] LABS: Albumin 2.4 g/dL (3.9-5); Bilirubin,Direct 5.9 mg/dL (0-0.2)
[2019-03-16] MEDS ORDERED: VANCOMYCIN 2,000 MG in SODIUM CHLORIDE 0.9% 500 ML 500 ML IV ONE ×2 (17:52→23:00)
--- NOTE | 2019-03-16 18:33 | Cat Scan Report ---
CT head/brain wo con INDICATION / CLINICAL INFORMATION: 43 years Male; fever, ams. TECHNIQUE: Routine CT head without contrast. All CT scans at this location are performed using CT dos e reduction for ALARA by means of automated exposure control. Exam is suboptimal, related to patient positioning. COMPARISON: None. FINDINGS: BRAIN / INTRACRANIAL CONTENTS: Some component of diffuse cerebral edema cannot entirely be excluded. Ventricular system is decreased in size. The basal cisterns are decreased in size, but remain patent. The superior vermian cistern is well visualized on sagittal reconstructions. Otherwise, no acute hemorrhage, mass effect, midline shift, hydrocephalus, or acute, large territoria l infarct. No chronic infarct or focal atrophy. Normal brain volume and ventricular/sulcal size for a ge. No significant white matter abnormality. CRANIOCERVICAL JUNCTION: No significant abnormality. ORBITS: No significant abnormality of visualized orbits. SINUSES / MASTOIDS: There are desiccated secretions in the nasopharynx. Patient is intubated. ADDITIONAL FINDINGS: None. IMPRESSION: 1. Some component of diffuse cerebral edema cannot be excluded. However, this finding may be artifact ual secondary to patient positioning. Close follow-up is recommended. No definitive signs of herniati on or large territorial infarct at this time. 2. Otherwise, no focal mass, hemorrhage, hydrocephalus, or large infarct seen. Signer Name: Drake Saldivar MD, III Signed: 03/16/2019 6:29 PM Workstation Name: [id number]
--- NOTE | 2019-03-16 18:37 | Cat Scan Report ---
CT of the chest, abdomen and pelvis without contrast INDICATION / CLINICAL INFORMATION: Fever and altered mental status. TECHNIQUE: All CT scans at this location are performed using CT dose reduction for ALARA by means of automated e xposure control. COMPARISON: None available. FINDINGS: CHEST: There is moderate parenchymal disease in both lower lobes posteromedially with air bronchogram s. There is no evidence of pleural effusion. The lungs are otherwise clear. No osseous abnormality is seen. ABDOMEN: There are multiple moderately distended small bowel loops in the upper to mid abdomen anteri jose which contain gas. There is mild associated wall thickening. I see no evidence of pneumatosis, p neumoperitoneum or ascites. The liver, spleen, gallbladder, bile ducts, pancreas, adrenal glands and kidneys are normal. PELVIS: There is a Edmond catheter in a collapsed urinary bladder. A normal appendix is present and th ere is no evidence of diverticulitis. I do not identify a hernia. No abnormal mass or fluid collectio n is seen. No acute osseous abnormality is identified. IMPRESSION: 1. Parenchymal disease in both lower lobes posteromedially may be related to aspiration pneumonia. 2. Moderately dilated small bowel bowel loops in the mid to upper abdomen anteriorly with mild associ ated bowel wall thickening. Localized enteritis and small bowel ischemia should be considered. Signer Name: Jovan Glass MD Signed: 03/16/2019 6:33 PM Workstation Name: [id number]
[2019-03-16] MEDS ORDERED: SODIUM CHLORIDE 0.9% 1000 ML 1,000 ML IV ONE (20:34)
[2019-03-16] MEDS ORDERED: SODIUM BICARBONATE 150 MEQ in WATER FOR INJECTION (PF) 1,000 ML IV ONE (20:50)
--- NOTE | 2019-03-16 21:33 | Consultation ---
History of Present Illness Consult date: 03/16/19 Chief complaint: abnormal Ct scan findings - History of present illness History of present illness: 43 yo M with unknown history presents to ER with AMS and not feeling well. Patient is visiting from [place] and is staying in a hotel. Per his friend who brought him to the hospital, he last saw him well 3 days ago. He states he staye d in his hotel for the last 2-3 days. Other friends noted that there was discharge coming from the eyes and patient's eyes were swollen shut. He came back to check on him today and states the patient said he wasn't feeling well and went to sleep. When his friend came back from work, he states the patient was incoherent, grayish in color and so he immediately brought him to the hospital. In the ER, per notes, patient was diaphoretic, having difficulty speaking and was in SVT in 250 range. He was shocked and rhythm became polymorphic VT then monomorphic Vtach and he was shocked once again and converted to sinus rhythm. He was intubated in the ER. Past History Past Medical History: other (unknown) Past Surgical History: Other (unknown) Social history: other (unknown) Family history: other (unknown) Medications and Allergies Allergies Allergy/AdvReac Type Severity Reaction Status Date / Time No Known Allergies Allergy Unverified 03/16/19 17:17 Active Meds: Active Medications Fentanyl (Sublimaze) 50 mcg IV Q10MIN PRN PRN Reason: ANALGESIA Hydrophilic Ointment (Vaseline Lip Therapy) 1 applic TP Q2HR PRN PRN Reason: Dry Lips Midazolam HCl 100 mg/ Sodium (Chloride) 100 mls @ 2 mls/hr IV TITR PAOLO; Protocol Last Admin: 03/16/19 17:29 Dose: 2 mg/hr, 2 mls/hr Documented by: Fentanyl Citrate (Fentanyl Drip Premix) 2,000 mcg in 100 mls @ 6.804 mls/hr IV TITR PAOLO; Protocol Last Titration: 03/16/19 17:15 Dose: 3 mcg/kg/hr, 20.412 mls/hr Documented by: Norepinephrine (Levophed Drip 4 Mg/Ns 250 Ml) 4 mg in 250 mls @ 7.5 mls/hr IV TITR PAOLO; Protocol Last Admin: 03/16/19 17:29 Dose: 2 mcg/min, 7.5 mls/hr Documented by: Sodium Chloride (Nacl 0.9% 1000 Ml) 1,000 mls @ 999 mls/hr IV BOLUS ONE Stop: 03/16/19 21:34 Last Admin: 03/16/19 20:34 Dose: 999 mls/hr Documented by: Sodium Bicarbonate 150 meq/ (Sterile Water) 1,150 mls @ 125 mls/hr IV DIRECT ONE Stop: 03/17/19 06:01 Midazolam HCl (Versed) 2 mg IV Q10MIN PRN PRN Reason: Sedation Multi-Ingred Cream/Lotion/Oil/Oint (Artificial Tears Ophth Oint) 1 applic OU Q4HR PRN PRN Reason: Dry Eye(s) Review of Systems ROS unobtainable: due to endotracheal tube, due to mental status Exam Vital Signs Pulse Resp Pulse Ox 195 H 29 H 82 L 03/16/19 15:26 03/16/19 15:26 03/16/19 15:26 Narrative exam: Gen: intubated, sedated ENT: ETT in place CV: s1, S2+. tachy resp: on full vent support Abd: soft, obese, NT, ND Ext: No c/c/e : garcia in place - no urine Results - Labs 03/16/19 16:03 03/16/19 16:05 Abnormal lab results 03/16/19 03/16/19 03/16/19 Range/Units 16:03 16:05 16:59 WBC 27.0 H (4.5-11.0) K/mm3 RBC 5.55 H (3.65-5.03) M/mm3 Hgb 15.7 H (11.8-15.2) gm/dl Hct 47.1 H (35.5-45.6) % Plt Count 75 L (140-440) K/mm3 Seg Neuts % (Manual) 85.0 H (40.0-70.0) % Lymphocytes % (Manual) 2.0 L (13.4-35.0) % Seg Neutrophils # Man 23.0 H (1.8-7.7) K/mm3 Lymphocytes # (Manual) 0.5 L (1.2-5.4) K/mm3 PT (12.2-14.9) Sec. INR (0.87-1.13) POC ABG pH 7.297 L (7.35-7.45) POC ABG pCO2 33.0 L (35-45) Sodium 127 L (137-145) mmol/L Chloride 87.8 L (98-107) mmol/L Carbon Dioxide 17 L (22-30) mmol/L BUN 49 H (9-20) mg/dL Creatinine 5.8 H (0.8-1.5) mg/dL Glucose 150 H (75-100) mg/dL Lactic Acid (0.7-2.0) mmol/L Calcium 6.6 L (8.4-10.2) mg/dL Magnesium 1.10 L (1.7-2.3) mg/dL Total Bilirubin (0.1-1.2) mg/dL Direct Bilirubin (0-0.2) mg/dL AST (5-40) units/L ALT (7-56) units/L Total Creatine Kinase 97669 H (55-170) units/L CK-MB (CK-2) (0.0-4.0) ng/mL Total Protein (6.3-8.2) g/dL Albumin (3.9-5) g/dL Free T4 (0.76-1.46) ng/dL Salicylates (2.8-20.0) mg/dL Acetaminophen (10.0-30.0) ug/mL 03/16/19 03/16/19 03/16/19 Range/Units 17:05 17:05 17:05 WBC (4.5-11.0) K/mm3 RBC (3.65-5.03) M/mm3 Hgb (11.8-15.2) gm/dl Hct (35.5-45.6) % Plt Count (140-440) K/mm3 Seg Neuts % (Manual) (40.0-70.0) % Lymphocytes % (Manual) (13.4-35.0) % Seg Neutrophils # Man (1.8-7.7) K/mm3 Lymphocytes # (Manual) (1.2-5.4) K/mm3 PT (12.2-14.9) Sec. INR (0.87-1.13) POC ABG pH (7.35-7.45) POC ABG pCO2 (35-45) Sodium (137-145) mmol/L Chloride (98-107) mmol/L Carbon Dioxide (22-30) mmol/L BUN (9-20) mg/dL Creatinine (0.8-1.5) mg/dL Glucose (75-100) mg/dL Lactic Acid 5.10 H* (0.7-2.0) mmol/L Calcium (8.4-10.2) mg/dL Magnesium (1.7-2.3) mg/dL Total Bilirubin (0.1-1.2) mg/dL Direct Bilirubin (0-0.2) mg/dL AST (5-40) units/L ALT (7-56) units/L Total Creatine Kinase 68692 H (55-170) units/L CK-MB (CK-2) 83.1 H (0.0-4.0) ng/mL Total Protein (6.3-8.2) g/dL Albumin (3.9-5) g/dL Free T4 0.72 L (0.76-1.46) ng/dL Salicylates (2.8-20.0) mg/dL Acetaminophen (10.0-30.0) ug/mL 03/16/19 03/16/19 03/16/19 Range/Units 17:05 17:05 17:05 WBC (4.5-11.0) K/mm3 RBC (3.65-5.03) M/mm3 Hgb (11.8-15.2) gm/dl Hct (35.5-45.6) % Plt Count (140-440) K/mm3 Seg Neuts % (Manual) (40.0-70.0) % Lymphocytes % (Manual) (13.4-35.0) % Seg Neutrophils # Man (1.8-7.7) K/mm3 Lymphocytes # (Manual) (1.2-5.4) K/mm3 PT 15.9 H (12.2-14.9) Sec. INR 1.30 H (0.87-1.13) POC ABG pH (7.35-7.45) POC ABG pCO2 (35-45) Sodium (137-145) mmol/L Chloride (98-107) mmol/L Carbon Dioxide (22-30) mmol/L BUN (9-20) mg/dL Creatinine (0.8-1.5) mg/dL Glucose (75-100) mg/dL Lactic Acid (0.7-2.0) mmol/L Calcium (8.4-10.2) mg/dL Magnesium (1.7-2.3) mg/dL Total Bilirubin (0.1-1.2) mg/dL Direct Bilirubin (0-0.2) mg/dL AST (5-40) units/L ALT (7-56) units/L Total Creatine Kinase (55-170) units/L CK-MB (CK-2) (0.0-4.0) ng/mL Total Protein (6.3-8.2) g/dL Albumin (3.9-5) g/dL Free T4 (0.76-1.46) ng/dL Salicylates < 0.3 L (2.8-20.0) mg/dL Acetaminophen < 5.0 L (10.0-30.0) ug/mL 03/16/19 03/16/19 Range/Units 17:05 Unknown WBC (4.5-11.0) K/mm3 RBC (3.65-5.03) M/mm3 Hgb (11.8-15.2) gm/dl Hct (35.5-45.6) % Plt Count (140-440) K/mm3 Seg Neuts % (Manual) (40.0-70.0) % Lymphocytes % (Manual) (13.4-35.0) % Seg Neutrophils # Man (1.8-7.7) K/mm3 Lymphocytes # (Manual) (1.2-5.4) K/mm3 PT (12.2-14.9) Sec. INR (0.87-1.13) POC ABG pH (7.35-7.45) POC ABG pCO2 (35-45) Sodium (137-145) mmol/L Chloride (98-107) mmol/L Carbon Dioxide (22-30) mmol/L BUN (9-20) mg/dL Creatinine (0.8-1.5) mg/dL Glucose (75-100) mg/dL Lactic Acid 3.00 H* (0.7-2.0) mmol/L Calcium (8.4-10.2) mg/dL Magnesium (1.7-2.3) mg/dL Total Bilirubin 6.20 H (0.1-1.2) mg/dL Direct Bilirubin 5.9 H (0-0.2) mg/dL AST 800 H (5-40) units/L ALT 120 H (7-56) units/L Total Creatine Kinase (55-170) units/L CK-MB (CK-2) (0.0-4.0) ng/mL Total Protein 4.4 L (6.3-8.2) g/dL Albumin 2.4 L (3.9-5) g/dL Free T4 (0.76-1.46) ng/dL Salicylates (2.8-20.0) mg/dL Acetaminophen (10.0-30.0) ug/mL Diabetes panel 03/16/19 03/16/19 Range/Units 16:05 17:05 Sodium 127 L (137-145) mmol/L Potassium 4.3 (3.6-5.0) mmol/L Chloride 87.8 L (98-107) mmol/L Carbon Dioxide 17 L (22-30) mmol/L BUN 49 H (9-20) mg/dL Creatinine 5.8 H (0.8-1.5) mg/dL Glucose 150 H (75-100) mg/dL Calcium 6.6 L (8.4-10.2) mg/dL AST 800 H (5-40) units/L ALT 120 H (7-56) units/L Alkaline Phosphatase 51 (35-129) units/L Total Protein 4.4 L (6.3-8.2) g/dL Albumin 2.4 L (3.9-5) g/dL Thyroid panel 03/16/19 Range/Units 17:05 TSH 2.200 (0.270-4.200) mlU/mL Calcium panel 03/16/19 03/16/19 Range/Units 16:05 17:05 Calcium 6.6 L (8.4-10.2) mg/dL Albumin 2.4 L (3.9-5) g/dL Pituitary panel 03/16/19 03/16/19 Range/Units 16:05 17:05 Sodium 127 L (137-145) mmol/L Potassium 4.3 (3.6-5.0) mmol/L Chloride 87.8 L (98-107) mmol/L Carbon Dioxide 17 L (22-30) mmol/L BUN 49 H (9-20) mg/dL Creatinine 5.8 H (0.8-1.5) mg/dL Glucose 150 H (75-100) mg/dL Calcium 6.6 L (8.4-10.2) mg/dL TSH 2.200 (0.270-4.200) mlU/mL Adrenal panel 03/16/19 03/16/19 Range/Units 16:05 17:05 Sodium 127 L (137-145) mmol/L Potassium 4.3 (3.6-5.0) mmol/L Chloride 87.8 L (98-107) mmol/L Carbon Dioxide 17 L (22-30) mmol/L BUN 49 H (9-20) mg/dL Creatinine 5.8 H (0.8-1.5) mg/dL Glucose 150 H (75-100) mg/dL Calcium 6.6 L (8.4-10.2) mg/dL Total Bilirubin 6.20 H (0.1-1.2) mg/dL AST 800 H (5-40) units/L ALT 120 H (7-56) units/L Alkaline Phosphatase 51 (35-129) units/L Total Protein 4.4 L (6.3-8.2) g/dL Albumin 2.4 L (3.9-5) g/dL - Imaging CT scan - abdomen: report reviewed, image reviewed CT scan - pelvis: report reviewed, image reviewed Assessment and Plan 43 yo M with 1. septic shock 2. RUBEN 3. rhabdomyolysis 4. AMS 5. multiorgan failure 6. electrolyte abnormalities Plan: 1. aggressive IVF hydration 2. pressor support as needed 3. serial labs 4. monitor urine output 5. correct electrolytes 6. broad spectrum abx 7. Ct scan A/P reviewed - some dilated appearing small bowel in the upper abdomen. However, no evidence of mesenteric stranding, ascites, mesenteric edema, calcified mesenteric vessels. There is no definitive evidence of bowel ischemia on imaging. 8. OGT to LIWS 9. repeat Abd xray in am At this time, patient is critically ill and has high chance of further deteriora tion. Continue management per hospitalist and critical care team. Will follow. Thank you, please call with questions.
[2019-03-16] MEDS ORDERED: VANCOMYCIN PHARMACY TO DOSE IV SCH (23:00)
[2019-03-16] MEDS ORDERED: SODIUM CHLORIDE 0.9% 1000 ML 1,000 ML IV SCH (23:00)
[2019-03-16] MEDS ORDERED: SUCCINYLCHOLINE CHLORIDE 200 MG/10 ML INJ MDV ONE (23:55)
[2019-03-16] MEDS: PIPERACIL-TAZO 2.25 GM/50 ML 2.25 GM/50 ML BAG IV SCH (23:58)
[2019-03-17] MEDS ORDERED: PIPERACIL/TAZOBACTA 4.5/NS 100 4.5 GM/100 ML VIAL IV SCH
[2019-03-17] MEDS: NORepinephrine/NS 4 MG-250 ML 4 MG/250 ML BAG IV SCH (00:42)
[2019-03-17] MEDS: VASOPRESSIN 20 UNIT in SODIUM CHLORIDE 0.9% 100 ML IV SCH ×3 (00:57→19:40)
[2019-03-17] MEDS ORDERED: ACETAMINOPHEN 325 MG RECT SUPP PR ONE (01:57)
[2019-03-17] MEDS: fentaNYL DRIP Premix 2,000 MCG/100 ML BAG IV SCH (02:29)
[2019-03-17 02:50] LABS: Chol/HDL Ratio 12.57 %
[2019-03-17] MEDS: PHENYLEPHRINE 100 MG in SODIUM CHLORIDE 0.9% 90 ML IV SCH ×4 (03:00→22:26)
[2019-03-17] MEDS: NORepinephrine 8 MG in SODIUM CHLORIDE 0.9% 250ML 242 ML IV SCH ×5 (03:12→21:01)
--- NOTE | 2019-03-17 03:13 | XRay Report ---
. CHEST 1 VIEW 03/17/2019 2:38 AM INDICATION / CLINICAL INFORMATION: follow up respiratory failure. COMPARISON: 03/16/2019. FINDINGS: SUPPORT DEVICES: NG tube has been repositioned now extending below the diaphragm. ET tube appears in stable appropriate position. HEART / MEDIASTINUM: Stable. LUNGS / PLEURA: Low lung volumes with bibasilar subsegmental atelectasis. No pneumothorax. ADDITIONAL FINDINGS: No significant additional findings. IMPRESSION: 1. No adverse change from the prior exam. Signer Name: Stuart Pacheco MD Signed: 03/17/2019 3:09 AM Workstation Name: [id number]
[2019-03-17 04:18] LABS: Calcium 5.4 mg/dL (8.4-10.2)
--- NOTE | 2019-03-17 05:20 | History and Physical Report ---
CHIEF COMPLAINT: Change in mental status. HISTORY OF PRESENT ILLNESS: The patient is a 43-year-old male who is visiting from out [facility] to [place]. The patient came from [place] and was staying with his friend who noted that the patient has not been feeling too well some few days ago and was having discharge from the left eye. The patient was noted to have gone to stay with his girlfriend for 2 days and then came back and he was ill appearing according to the friend and was having problem breathing and was confused and was very weak and could not walk on his own. The patient was also noted to be sweating and was brought by the friend in a private car. There was history of difficulty with speech and presented as case of code stroke to the Emergency Room. The patient was subsequently put on a monitor and was noted to have irregular heartbeat and was treated and finally intubated and mechanically ventilated because of deterioration in his condition. PAST MEDICAL HISTORY: Not well known. PAST SURGICAL HISTORY: Also not well known. FAMILY HISTORY: Noncontributory. SOCIAL HISTORY: Not clear whether the patient smokes, drinks or uses illicit drugs. MEDICATIONS: The patient's home medications are not known at this time. ALLERGIES: There are no known drug allergies. REVIEW OF SYSTEMS: CONSTITUTIONAL: There is no fever, no chills. Diaphoresis is present. HEENT: There is no headache or sore throat. CARDIOVASCULAR SYSTEM: There is no chest pain or orthopnea. RESPIRATORY SYSTEM: There is no shortness of breath or cough. GASTROINTESTINAL SYSTEM: There is no nausea, no vomiting, no abdominal pain, diarrhea or constipation. NEUROLOGICAL SYSTEM: Altered mental status noted. Weakness noted. There was no history of numbness. MUSCULOSKELETAL SYSTEM: There is no joint pain or swelling. DERMATOLOGICAL SYSTEM: There is no skin rash or itching. GENITOURINARY SYSTEM: There is no dysuria, hematuria or flank pain. Rest of system review is normal. PHYSICAL EXAMINATION: GENERAL: At the time of exam, the patient was found to be sedated, intubated and mechanically ventilated and not in acute distress. VITAL SIGNS: The patient's vital initially showed a pulse of 195, respirations 29, pulse ox of 82%. HEENT: Showed pupils to be equal, sluggishly reactive to light and nondilated. NECK: Supple with no JVD or carotid bruit. CARDIOVASCULAR SYSTEM: Showed normal first and second heart sounds with rapid rate. RESPIRATORY SYSTEM: Showed good air entry on both sides of the lungs through the endotracheal tube with no abnormal breath sounds. GASTROINTESTINAL SYSTEM: Showed abdomen to be full, soft, nontender with no organomegaly or rigidity. NEUROLOGIC: Showed no focal deficit. MUSCULOSKELETAL SYSTEM: Showed no joint swelling or tenderness. DERMATOLOGICAL SYSTEM: Showed no skin rash. GENITOURINARY SYSTEM: Showing no costovertebral angle tenderness. PERTINENT LABORATORY AND IMAGING STUDIES: The patient had CT of the head without contrast done. Radiology said that some component of diffuse cerebral edema cannot be excluded; however, the radiologist said that these findings may be artifactual secondary to patient positioning and recommend followup. There is no definite sign of herniation or large territorial infarct at this time. Also, there is no focal mass, hemorrhage, hydrocephalus or large infarct seen according to the radiologist. The patient also had CT of the abdomen and pelvis done and this shows parenchymal disease in both lower lobes posteromedially which the radiologist said may be related to aspiration pneumonia. There are moderately dilated small bowel loops in the mid to upper abdomen anteriorly with mild associated bowel wall thickening, localized enteritis and small bowel ischemia should be considered according to the radiologist. The patient had chest CT done and the CT shows parenchymal disease in both lower lobes posterior medial and this may be related to aspiration pneumonia according to the radiologist and the patient had chest x-ray done and chest x-ray shows endotracheal tube in good position and also the chest x-ray shows nasogastric tube doubled back on itself at the level of the [place] with the tip not seen and the radiologist said that the tube will need to be removed or reposition. The patient had a repeat chest x-ray done that shows no adverse change from previous exam and the radiologist says that the nasogastric tube has been repositioned now and extending below the diaphragm. An ET tube appears in the stable appropriate position according to the radiologist. Lab results; the patient has CBC done with elevated white count of 27,000, high hemoglobin of 15.7 and high hematocrit of 47.1 with a low platelet count of 75,000. CBC differential show elevated segmented neutrophil count of 85%. The patient's coagulation studies show high INR of 1.3 with high PT of 15.9. The patient's ABG showed low pH of 7.29, low pCO2 of 33. Chemistry shows low sodium level of 127, low chloride level of 87.8, elevated BUN of 49 and elevated creatinine of 5.8 and high lactic acid level of 5.1 with low calcium of 6.6 and low magnesium level of 1.1. The patient's total bilirubin level is high with a value of 6.2 with a high direct bilirubin level of 5.9 and liver transaminases show high AST of 800 with high ALT of 120. The patient's total creatine kinase is high with a value of ____ with high CK-MB of 83.1 and normal CK percentage index. The patient's first troponin level came back unremarkable and albumin level is low with a value of 2.4 corresponding with low calcium level. The patient's TSH level is normal, but the T4 level is low with a value of 0.72. The patient's toxicology screen was unremarkable. DIAGNOSES: 1. Septic shock. 2. Renal failure. 3. Rhabdomyolysis. 4. Multiple organ failure. 5. Low magnesium. PLAN OF CARE: 1. The patient will be admitted to ICU. 2. The patient will have serial cardiac enzymes involving troponin, total CK and CK-MB done every 6 hours x 2 more levels. 3. The patient will continue the Cardiology consult with Dr. Chris Rojas requested by the Emergency Room doctor and also the patient will continue Nephrology consult with Dr. Guillermo Rice requested by the Emergency Room and will continue surgical consult with Dr. Patricia Dow for possible ischemic colitis. Also, the patient will continue critical care consult with Dr. Jj for ICU admission and management of multiorgan failure and mechanical ventilation. 4. The patient will continue IV Levophed, which will be titrated to keep the MAP at 65. 5. The patient will be on IV Zosyn 4.5 g q.8 hours. 6. The patient will be on IV Levaquin 750 mg daily for management of septic shock. 7. The patient will continue IV vancomycin started in the Emergency Room as part of management of the septic shock. 8. The patient will be on IV normal saline running at about 150 mL an hour as a maintenance with having had multiple bolus doses in the Emergency Room. 9. The patient will be on Tylenol suppository 650 mg every 4 hours for fever and headache. 10. The patient will have serial lactic acid level done as part of management of septic room. 11. The patient will continue the sedation started in the Emergency Room as part of maintenance of mechanical ventilation and the patient will have respiratory therapy consult to manage the ventilator. JOB# [id number] OCN/DEREK WALTER
[2019-03-17 05:39] LABS: Creatine Kinase MB 41.5 ng/mL (0.0-4.0)
--- NOTE | 2019-03-17 06:28 | Consultation ---
ROOM#: [id number] REQUESTING PHYSICIAN: Dr. Faria. CONSULTING PHYSICIAN: Dr. Rojas. HISTORY OF PRESENT ILLNESS: This is a 43-year-old white male who was brought to the Emergency Room by the firmware developer with a history of altered mental status for further evaluation and management. The patient is now intubated and sedated and I am unable to elicit any history from the patient. History is obtained from the patient's friend who is the one who called for help. According to the friend, patient was visiting here over the last 2-3 days. He has been with his friend. Apparently, the friend saw him this morning and at that time, the patient was incoherent and appears kind of weak and pale and sweaty. He could not get much history out of the patient. He was urine incontinent. The friend went to work and then when he came back at lunch break, he found the patient very incoherent and he could not get any complaints or history from the patient. He was not responding to his questions. He was diaphoretic and pale and very weak and could not stand up either. So he called for help. The only history I could get from the friend is that the patient complained of pain in his right axilla. The patient apparently told him that he can feel a bump in the axilla. He has not mentioned anything about fever. He has not been eating or drinking properly. He had some abdominal discomfort, but there is no definite history of any chest pain or unusual shortness of breath. According to the patient, the patient is not on any medications and he does not have any history of diabetes or high blood pressure, etc. He does smoke heavy. No history of any alcoholism. 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 He is not . PAST MEDICAL HISTORY: Negative as mentioned above. 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 He is not . He smokes. Nonalcoholic. ALLERGIES: Not known. MEDICATIONS: None. REVIEW OF SYSTEMS: Could not be obtained. PHYSICAL EXAMINATION: GENERAL: This is a 43-year-old male, well built and obese and in no acute distress. The patient is now intubated and on the ventilator and sedated. SKIN: Warm and dry. HEENT: Pupils are reactive. NECK: Supple. Both carotids well palpable. No definite bruit, no JVD. CHEST: Lungs clear anteriorly. HEART: S1, S2 heard well. The patient is tachycardic. ABDOMEN: Soft. Bowel sounds are heard. EXTREMITIES: No edema, no calf tenderness. Pedal pulses are palpable, but weak. IMAGING STUDIES: The patient does have redness in the right axilla and ? enlarged lymph node. EKG showed sinus tachycardia with nonspecific ST-T changes. LABORATORY DATA: WBC count was 27,000. Hemoglobin was 15.7, hematocrit 47.1. BMP; sodium was 127, BUN was 49, creatinine 5.8, glucose 150. ASSESSMENT AND PLAN: This is a 43-year-old male who was brought to the Emergency Room with altered mental status. The patient was then seen in the Emergency Room with a heart rate in the 250 range and EKG showing supraventricular tachycardia. The patient was unstable and so the patient received DC shock at 50 joules, which was synchronized, but soon after that, he went into ventricular tachycardia. So he had to be shocked again and this time a sinus rhythm at a rate of 130. He is still in sinus tachycardia with a heart rate in the 130s. EKG showed nonspecific ST-T changes. No acute changes. VITAL SIGNS: Blood pressure is 123/40, pulse is 132 and regular, temperature was 105 degrees Fahrenheit. Considering the above factors, it appears like the patient has some type of infection and he may be septic. Obviously, he has renal insufficiency too which could be secondary to sepsis or dehydration, etc. IMPRESSION: 1. Supraventricular tachycardia, status post cardioversion. 2. Fever ? cause. 3. Acute kidney injury. 4. History of smoking. I had a long discussion with the patient's friend. The above findings were explained to him. At this time, the patient's cardiovascular status appears stable. He is being admitted to the Intensive Care Unit. He will be under the care of the department helper. We will monitor his cardiac status closely. The patient's prognosis remains guarded. Rest of the plan as per orders. JOB# [id number] EDILMA/DEREK
--- NOTE | 2019-03-17 07:39 | Consultation ---
History of Present Illness - Reason for Consult Consult date: 03/17/19 acute renal failure - History of Present Illness The patient is a 43 YO male with unknown medical history who was brought to [facility] ER yesterday with AMS and not feeling well. Patient was not able to provide any history and the information was obtained from his friend at the bedside. He is visiting from [place] and is staying in a hotel. Patient's friend who brought him to the hospital, last saw him well on 03/13/2019. Yesterday when his friend came back from work, found patient having trouble breathing, confused, very weak, could not walk on his own and diaphoretic. He immediately brought him to the hospital in his car. In the ER patient was diaphoretic and was in SVT with heart rate around 250. He was shocked with rhythm changed to polymorphic Vtach then monomorphic Vtach and he was shocked again with return to sinus rhythm. He was intubated in the ER. He was found to have RUBEN, multiple electrolyte abnormalities and Lactic acidosis. Nephrology was consulted for further evaluation of RUBEN. Past History Past Medical History: other (Morbid obesity, chronic eye discharge) Past Surgical History: Other (unknown) Social history: other (unknown) Family history: other (unknown) Medications and Allergies Allergies Allergy/AdvReac Type Severity Reaction Status Date / Time No Known Allergies Allergy Unverified 03/16/19 17:17 Active Meds: Active Medications Acetaminophen (Tylenol) 650 mg SD Q4H PRN PRN Reason: Fever >101 Fentanyl (Sublimaze) 50 mcg IV Q10MIN PRN PRN Reason: ANALGESIA Last Admin: 03/16/19 17:02 Dose: 50 mcg Documented by: Hydrophilic Ointment (Vaseline Lip Therapy) 1 applic TP Q2HR PRN PRN Reason: Dry Lips Midazolam HCl 100 mg/ Sodium (Chloride) 100 mls @ 2 mls/hr IV TITR PAOLO; Protoco l Last Titration: 03/17/19 03:18 Dose: 0 mg/hr, 0 mls/hr Documented by: Fentanyl Citrate (Fentanyl Drip Premix) 2,000 mcg in 100 mls @ 6.804 mls/hr IV TITR PAOLO; Protocol Last Titration: 03/17/19 03:18 Dose: 0 mcg/kg/hr, 0 mls/hr Documented by: Sodium Chloride (Nacl 0.9% 1000 Ml) 1,000 mls @ 150 mls/hr IV DIRECT PAOLO Piperacillin Sod/Tazobactam Sod (Zosyn/Ns 2.25 Gm/50ml) 2.25 gm in 50 mls @ 100 mls/hr IV Q8H PAOLO Last Admin: 03/16/19 23:58 Dose: 100 mls/hr Documented by: Vasopressin 20 unit/ Sodium (Chloride) 101 mls @ 9.09 mls/hr IV TITR PAOLO; Protocol Last Admin: 03/17/19 00:57 Dose: 0.03 units/min, 9.09 mls/hr Documented by: Levofloxacin/Dextrose (Levaquin 750mg/150ml) 750 mg in 150 mls @ 100 mls/hr IV Q24HR PAOLO; Protocol Stop: 03/17/19 11:29 Levofloxacin/Dextrose (Levaquin 500mg/100ml) 500 mg in 100 mls @ 100 mls/hr IV Q48HR PAOLO Norepinephrine 8 mg/ Sodium (Chloride) 250 mls @ 3.75 mls/hr IV TITR PAOLO; Protocol Last Admin: 03/17/19 03:12 Dose: 30 mcg/min, 56.25 mls/hr Documented by: Phenylephrine HCl 100 mg/ (Sodium Chloride) 100 mls @ 3 mls/hr IV TITR PAOLO; Protocol Last Titration: 03/17/19 06:41 Dose: 130 mcg/min, 7.8 mls/hr Documented by: Midazolam HCl (Versed) 2 mg IV Q10MIN PRN PRN Reason: Sedation Multi-Ingred Cream/Lotion/Oil/Oint (Artificial Tears Ophth Oint) 1 applic OU Q4HR PRN PRN Reason: Dry Eye(s) Ondansetron HCl (Zofran) 4 mg IV Q8H PRN PRN Reason: Nausea And Vomiting Review of Systems ROS unobtainable: due to mental status Exam - Vital Signs Vital signs: Vital Signs Pulse Resp Pulse Ox 195 H 29 H 82 L 03/16/19 15:26 03/16/19 15:26 03/16/19 15:26 - General Appearance General appearance: well-developed, well-nourished, appears stated age, obese, intubated, other (on vent) EENT: ATNC, other (b/l eye discharge noted) Neck: Present: neck supple, trachea midline Respiratory: Clear to Ascultation Heart: regular, tachycardia, S1S2, no murmurs Gastrointestinal: Present: obese, other (BS heard, garcia catheter). Absent: tenderness Integumentary: no rash Neurologic: other (some extremity movements) Musculoskeletal: Present: other (no edema) Results - Lab Results 03/16/19 16:03 03/17/19 03:45 Most recent lab results Calcium 5.4 mg/dL (8.4-10.2) L* D 03/17/19 03:45 Phosphorus 7.30 mg/dL (2.5-4.5) H 03/17/19 03:45 Magnesium 1.60 mg/dL (1.7-2.3) L 03/17/19 03:45 Assessment and Plan 1. Acute kidney injury: Vasomotor RUBEN in the setting of shock / volume depletion / Rhabdo. Baseline renal function is unknown. Renal function continue to decline in the setting of shock. CT abdomen was negative for obstructive nephropathy. Urine studies ordered. Monitor renal function. Renal prognosis is guarded. Avoid nephrotoxic agents. Meds dosage based on GFR. Patient is currently on 3 different pressors with MAP around 50. Its risky and he wouldn't tolerate hemodialysis at this point. Continue maintenance IV fluids. 2. FEN: Hyponatremia, improving. Metabolic acidosis, 2/2 Lactic acidosis. Monitor lytes. 3. Septic shock: On broad spectrum Abx. Multiple pressors. Follow cultures. 4. Rhabdomyolysis: Continue IV fluids. Follow CK level. 5. SVT / V.tach: Cards consulted. 6. Respiratory failure: On vent. 7. Multiple organ failure. 8. Elevated transaminases. 9. Encephalopathy.
[2019-03-17 08:17] LABS: Creatine Kinase MB 54.3 ng/mL (0.0-4.0)
--- NOTE | 2019-03-17 10:00 | Consultation ---
History of Present Illness - Reason for Consult Consult date: 03/17/19 sepsis Requesting physician: SANDRA GRIFFIN - History of Present Illness 43 y/o male unknown medical history admitted on 03/16/2019 due to be found unresponsive by his friend. Patient is currently intubated unable to provide a history. I attempted to call his friend but got an answering machine. 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 His friend last saw him on 03/13/2019 and he was doing fine. Friend came back to the hotel on 03/16/2019 and found him in respiratory distress, diaphoretic, unable to walk and confused and incoherent. There was a report of bilateral eye discharge and right axilla mass. In the ED, temp 105, HR 195, R 29, BP 103/30, O2 sat 82%. WBC 27. Hg 15.7. Plat 75. Na 127. Creat 5.8. AST 800. ALT 120. CPK 73K. Lactate 5.1. Blood cultures 03/16/2019 no growth so far. Sputum 03/16/2019 poor specimen. CXR negative. CT chest abd/pelvis shows parenchymal disease in both lower lobes with air bronchograms posteromedially and moderately dilated small bowel bowel loops in the mid to upper abdomen anteriorly with mild associated bowel wall thickening He was intubated in the ER. Currently on 3 pressors, sedated, intubated. ID consulted for severe sepsis with septic shock. Review of Systems: unable to obtain Past History Past Medical History: other (Morbid obesity, chronic eye discharge) Past Surgical History: Other (unknown) Social history: other (unknown) Family history: other (unknown) Medications and Allergies Allergies Allergy/AdvReac Type Severity Reaction Status Date / Time No Known Allergies Allergy Unverified 03/16/19 17:17 Active Meds: Active Medications Acetaminophen (Tylenol) 650 mg ME Q4H PRN PRN Reason: Fever >101 Albumin Human (Alburx 25% (Albumin)) 25 gm IV ONCE ONE Stop: 03/17/19 09:37 Fentanyl (Sublimaze) 50 mcg IV Q10MIN PRN PRN Reason: ANALGESIA Last Admin: 03/16/19 17:02 Dose: 50 mcg Documented by: Hydrophilic Ointment (Vaseline Lip Therapy) 1 applic TP Q2HR PRN PRN Reason: Dry Lips Midazolam HCl 100 mg/ Sodium (Chloride) 100 mls @ 2 mls/hr IV TITR PAOLO; Protocol Last Titration: 03/17/19 09:18 Dose: 2 mg/hr, 2 mls/hr Documented by: Fentanyl Citrate (Fentanyl Drip Premix) 2,000 mcg in 100 mls @ 6.804 mls/hr IV TITR PAOLO; Protocol Last Titration: 03/17/19 09:19 Dose: 2 mcg/kg/hr, 13.608 mls/hr Documented by: Sodium Chloride (Nacl 0.9% 1000 Ml) 1,000 mls @ 150 mls/hr IV DIRECT PAOLO Piperacillin Sod/Tazobactam Sod (Zosyn/Ns 2.25 Gm/50ml) 2.25 gm in 50 mls @ 100 mls/hr IV Q8H PAOLO Last Admin: 03/16/19 23:58 Dose: 100 mls/hr Documented by: Vasopressin 20 unit/ Sodium (Chloride) 101 mls @ 9.09 mls/hr IV TITR PAOLO; Protocol Last Admin: 03/17/19 08:06 Dose: 0.03 units/min, 9.09 mls/hr Documented by: Levofloxacin/Dextrose (Levaquin 750mg/150ml) 750 mg in 150 mls @ 100 mls/hr IV Q24HR PAOLO; Protocol Stop: 03/17/19 11:29 Levofloxacin/Dextrose (Levaquin 500mg/100ml) 500 mg in 100 mls @ 100 mls/hr IV Q48HR PAOLO Norepinephrine 8 mg/ Sodium (Chloride) 250 mls @ 3.75 mls/hr IV TITR PAOLO; Pr otocol Last Titration: 03/17/19 09:19 Dose: 25 mcg/min, 46.875 mls/hr Documented by: Phenylephrine HCl 100 mg/ (Sodium Chloride) 100 mls @ 3 mls/hr IV TITR PAOLO; Protocol Last Titration: 03/17/19 09:19 Dose: 180 mcg/min, 10.8 mls/hr Documented by: Sodium Chloride (Nacl 0.9% 1000 Ml) 3,000 mls @ 999 mls/hr IV BOLUS ONE Stop: 03/17/19 12:36 Midazolam HCl (Versed) 2 mg IV Q10MIN PRN PRN Reason: Sedation Multi-Ingred Cream/Lotion/Oil/Oint (Artificial Tears Ophth Oint) 1 applic OU Q4HR PRN PRN Reason: Dry Eye(s) Ondansetron HCl (Zofran) 4 mg IV Q8H PRN PRN Reason: Nausea And Vomiting Physical Examination - Physical Exam Narrative exam: General appearance: sedated intubated Eyes: +icteric sclerae, +mild erythematous conjunctivae with yellowish secretion; PERRLA HENT: Atraumatic; oropharynx with ETT Neck: +grimace with posterior neck palpation Lungs:dannie rhonchi CV: RRR Abdomen: Soft, non-tender; no masses or hepatosplenomegaly Extremities: no edema, no cyanosis, +right axillar soft tissue mass non tender Skin: +diffuse erythematous blanching rash allover and mild jaundice Psych: sedated. Neuro: sedated - Constitutional Vitals: Vital Signs Temp Pulse Resp BP Pulse Ox 98.7 F 102 H 31 H 90/48 94 03/17/19 07:53 03/17/19 08:36 03/17/19 08:19 03/17/19 04:20 03/17/19 08:36 Temperature -Last 24 Hours Temperature 98.7 F Temperature 105 F Temperature 104.0 F Temperature 105.2 F Temperature 103 F Temperature 101.5 F Temperature 105 F Results - Labs CBC & Chem 7: 03/16/19 16:03 03/17/19 03:45 Labs: Abnormal lab results 03/16/19 03/16/19 03/16/19 Range/Units 16:03 16:05 16:59 WBC 27.0 H (4.5-11.0) K/mm3 RBC 5.55 H (3.65-5.03) M/mm3 Hgb 15.7 H (11.8-15.2) gm/dl Hct 47.1 H (35.5-45.6) % Plt Count 75 L (140-440) K/mm3 Seg Neuts % (Manual) 85.0 H (40.0-70.0) % Lymphocytes % (Manual) 2.0 L (13.4-35.0) % Seg Neutrophils # Man 23.0 H (1.8-7.7) K/mm3 Lymphocytes # (Manual) 0.5 L (1.2-5.4) K/mm3 PT (12.2-14.9) Sec. INR (0.87-1.13) POC ABG pH 7.297 L (7.35-7.45) POC ABG pCO2 33.0 L (35-45) POC ABG pO2 (80-105) Sodium 127 L (137-145) mmol/L Chloride 87.8 L (98-107) mmol/L Carbon Dioxide 17 L (22-30) mmol/L BUN 49 H (9-20) mg/dL Creatinine 5.8 H (0.8-1.5) mg/dL Glucose 150 H (75-100) mg/dL Lactic Acid (0.7-2.0) mmol/L Calcium 6.6 L (8.4-10.2) mg/dL Phosphorus (2.5-4.5) mg/dL Magnesium 1.10 L (1.7-2.3) mg/dL Total Bilirubin (0.1-1.2) mg/dL Direct Bilirubin (0-0.2) mg/dL AST (5-40) units/L ALT (7-56) units/L Total Creatine Kinase 84134 H (55-170) units/L CK-MB (CK-2) (0.0-4.0) ng/mL Troponin T (0.00-0.029) ng/mL Total Protein (6.3-8.2) g/dL Albumin (3.9-5) g/dL Triglycerides (2-149) mg/dL LDL Cholesterol Direct (50-130) mg/dL HDL Cholesterol (40-59) mg/dL Free T4 (0.76-1.46) ng/dL Salicylates (2.8-20.0) mg/dL Acetaminophen (10.0-30.0) ug/mL 03/16/19 03/16/19 03/16/19 Range/Units 17:05 17:05 17:05 WBC (4.5-11.0) K/mm3 RBC (3.65-5.03) M/mm3 Hgb (11.8-15.2) gm/dl Hct (35.5-45.6) % Plt Count (140-440) K/mm3 Seg Neuts % (Manual) (40.0-70.0) % Lymphocytes % (Manual) (13.4-35.0) % Seg Neutrophils # Man (1.8-7.7) K/mm3 Lymphocytes # (Manual) (1.2-5.4) K/mm3 PT (12.2-14.9) Sec. INR (0.87-1.13) POC ABG pH (7.35-7.45) POC ABG pCO2 (35-45) POC ABG pO2 (80-105) Sodium (137-145) mmol/L Chloride (98-107) mmol/L Carbon Dioxide (22-30) mmol/L BUN (9-20) mg/dL Creatinine (0.8-1.5) mg/dL Glucose (75-100) mg/dL Lactic Acid 5.10 H* (0.7-2.0) mmol/L Calcium (8.4-10.2) mg/dL Phosphorus (2.5-4.5) mg/dL Magnesium (1.7-2.3) mg/dL Total Bilirubin (0.1-1.2) mg/dL Direct Bilirubin (0-0.2) mg/dL AST (5-40) units/L ALT (7-56) units/L Total Creatine Kinase 66482 H (55-170) units/L CK-MB (CK-2) 83.1 H (0.0-4.0) ng/mL Troponin T (0.00-0.029) ng/mL Total Protein (6.3-8.2) g/dL Albumin (3.9-5) g/dL Triglycerides (2-149) mg/dL LDL Cholesterol Direct (50-130) mg/dL HDL Cholesterol (40-59) mg/dL Free T4 0.72 L (0.76-1.46) ng/dL Salicylates (2.8-20.0) mg/dL Acetaminophen (10.0-30.0) ug/mL 03/16/19 03/16/19 03/16/19 Range/Units 17:05 17:05 17:05 WBC (4.5-11.0) K/mm3 RBC (3.65-5.03) M/mm3 Hgb (11.8-15.2) gm/dl Hct (35.5-45.6) % Plt Count (140-440) K/mm3 Seg Neuts % (Manual) (40.0-70.0) % Lymphocytes % (Manual) (13.4-35.0) % Seg Neutrophils # Man (1.8-7.7) K/mm3 Lymphocytes # (Manual) (1.2-5.4) K/mm3 PT 15.9 H (12.2-14.9) Sec. INR 1.30 H (0.87-1.13) POC ABG pH (7.35-7.45) POC ABG pCO2 (35-45) POC ABG pO2 (80-105) Sodium (137-145) mmol/L Chloride (98-107) mmol/L Carbon Dioxide (22-30) mmol/L BUN (9-20) mg/dL Creatinine (0.8-1.5) mg/dL Glucose (75-100) mg/dL Lactic Acid (0.7-2.0) mmol/L Calcium (8.4-10.2) mg/dL Phosphorus (2.5-4.5) mg/dL Magnesium (1.7-2.3) mg/dL Total Bilirubin (0.1-1.2) mg/dL Direct Bilirubin (0-0.2) mg/dL AST (5-40) units/L ALT (7-56) units/L Total Creatine Kinase (55-170) units/L CK-MB (CK-2) (0.0-4.0) ng/mL Troponin T (0.00-0.029) ng/mL Total Protein (6.3-8.2) g/dL Albumin (3.9-5) g/dL Triglycerides (2-149) mg/dL LDL Cholesterol Direct (50-130) mg/dL HDL Cholesterol (40-59) mg/dL Free T4 (0.76-1.46) ng/dL Salicylates < 0.3 L (2.8-20.0) mg/dL Acetaminophen < 5.0 L (10.0-30.0) ug/mL 03/16/19 03/16/19 03/16/19 Range/Units 17:05 20:35 21:45 WBC (4.5-11.0) K/mm3 RBC (3.65-5.03) M/mm3 Hgb (11.8-15.2) gm/dl Hct (35.5-45.6) % Plt Count (140-440) K/mm3 Seg Neuts % (Manual) (40.0-70.0) % Lymphocytes % (Manual) (13.4-35.0) % Seg Neutrophils # Man (1.8-7.7) K/mm3 Lymphocytes # (Manual) (1.2-5.4) K/mm3 PT (12.2-14.9) Sec. INR (0.87-1.13) POC ABG pH (7.35-7.45) POC ABG pCO2 (35-45) POC ABG pO2 (80-105) Sodium (137-145) mmol/L Chloride (98-107) mmol/L Carbon Dioxide (22-30) mmol/L BUN (9-20) mg/dL Creatinine (0.8-1.5) mg/dL Glucose (75-100) mg/dL Lactic Acid 3.30 H* 3.30 H* (0.7-2.0) mmol/L Calcium (8.4-10.2) mg/dL Phosphorus (2.5-4.5) mg/dL Magnesium (1.7-2.3) mg/dL Total Bilirubin 6.20 H (0.1-1.2) mg/dL Direct Bilirubin 5.9 H (0-0.2) mg/dL AST 800 H (5-40) units/L ALT 120 H (7-56) units/L Total Creatine Kinase (55-170) units/L CK-MB (CK-2) (0.0-4.0) ng/mL Troponin T (0.00-0.029) ng/mL Total Protein 4.4 L (6.3-8.2) g/dL Albumin 2.4 L (3.9-5) g/dL Triglycerides (2-149) mg/dL LDL Cholesterol Direct (50-130) mg/dL HDL Cholesterol (40-59) mg/dL Free T4 (0.76-1.46) ng/dL Salicylates (2.8-20.0) mg/dL Acetaminophen (10.0-30.0) ug/mL 03/16/19 03/16/19 03/17/19 Range/Units 22:32 Unknown 03:45 WBC (4.5-11.0) K/mm3 RBC (3.65-5.03) M/mm3 Hgb (11.8-15.2) gm/dl Hct (35.5-45.6) % Plt Count (140-440) K/mm3 Seg Neuts % (Manual) (40.0-70.0) % Lymphocytes % (Manual) (13.4-35.0) % Seg Neutrophils # Man (1.8-7.7) K/mm3 Lymphocytes # (Manual) (1.2-5.4) K/mm3 PT (12.2-14.9) Sec. INR (0.87-1.13) POC ABG pH (7.35-7.45) POC ABG pCO2 (35-45) POC ABG pO2 (80-105) Sodium 131 L (137-145) mmol/L Chloride 88.9 L (98-107) mmol/L Carbon Dioxide (22-30) mmol/L BUN 53 H (9-20) mg/dL Creatinine 7.1 H (0.8-1.5) mg/dL Glucose (75-100) mg/dL Lactic Acid 3.00 H* (0.7-2.0) mmol/L Calcium 5.4 L* D (8.4-10.2) mg/dL Phosphorus 7.30 H (2.5-4.5) mg/dL Magnesium 1.60 L (1.7-2.3) mg/dL Total Bilirubin 5.90 H (0.1-1.2) mg/dL Direct Bilirubin (0-0.2) mg/dL AST 801 H (5-40) units/L ALT 109 H (7-56) units/L Total Creatine Kinase 25504 H (55-170) units/L CK-MB (CK-2) (0.0-4.0) ng/mL Troponin T 0.047 H D (0.00-0.029) ng/mL Total Protein 4.5 L (6.3-8.2) g/dL Albumin 2.0 L (3.9-5) g/dL Triglycerides 395 H (2-149) mg/dL LDL Cholesterol Direct 10 L (50-130) mg/dL HDL Cholesterol 7 L (40-59) mg/dL Free T4 (0.76-1.46) ng/dL Salicylates (2.8-20.0) mg/dL Acetaminophen (10.0-30.0) ug/mL 03/17/19 03/17/19 03/17/19 Range/Units 03:45 03:45 05:47 WBC (4.5-11.0) K/mm3 RBC (3.65-5.03) M/mm3 Hgb (11.8-15.2) gm/dl Hct (35.5-45.6) % Plt Count (140-440) K/mm3 Seg Neuts % (Manual) (40.0-70.0) % Lymphocytes % (Manual) (13.4-35.0) % Seg Neutrophils # Man (1.8-7.7) K/mm3 Lymphocytes # (Manual) (1.2-5.4) K/mm3 PT (12.2-14.9) Sec. INR (0.87-1.13) POC ABG pH 7.193 L (7.35-7.45) POC ABG pCO2 45.2 H (35-45) POC ABG pO2 65 L (80-105) Sodium (137-145) mmol/L Chloride (98-107) mmol/L Carbon Dioxide (22-30) mmol/L BUN (9-20) mg/dL Creatinine (0.8-1.5) mg/dL Glucose (75-100) mg/dL Lactic Acid 4.10 H* (0.7-2.0) mmol/L Calcium (8.4-10.2) mg/dL Phosphorus (2.5-4.5) mg/dL Magnesium (1.7-2.3) mg/dL Total Bilirubin (0.1-1.2) mg/dL Direct Bilirubin (0-0.2) mg/dL AST (5-40) units/L ALT (7-56) units/L Total Creatine Kinase 52678 H (55-170) units/L CK-MB (CK-2) 41.5 H (0.0-4.0) ng/mL Troponin T 0.054 H (0.00-0.029) ng/mL Total Protein (6.3-8.2) g/dL Albumin (3.9-5) g/dL Triglycerides (2-149) mg/dL LDL Cholesterol Direct (50-130) mg/dL HDL Cholesterol (40-59) mg/dL Free T4 (0.76-1.46) ng/dL Salicylates (2.8-20.0) mg/dL Acetaminophen (10.0-30.0) ug/mL 03/17/19 03/17/19 Range/Units 07:16 07:16 WBC (4.5-11.0) K/mm3 RBC (3.65-5.03) M/mm3 Hgb (11.8-15.2) gm/dl Hct (35.5-45.6) % Plt Count (140-440) K/mm3 Seg Neuts % (Manual) (40.0-70.0) % Lymphocytes % (Manual) (13.4-35.0) % Seg Neutrophils # Man (1.8-7.7) K/mm3 Lymphocytes # (Manual) (1.2-5.4) K/mm3 PT (12.2-14.9) Sec. INR (0.87-1.13) POC ABG pH (7.35-7.45) POC ABG pCO2 (35-45) POC ABG pO2 (80-105) Sodium (137-145) mmol/L Chloride (98-107) mmol/L Carbon Dioxide (22-30) mmol/L BUN (9-20) mg/dL Creatinine (0.8-1.5) mg/dL Glucose (75-100) mg/dL Lactic Acid 5.50 H* (0.7-2.0) mmol/L Calcium (8.4-10.2) mg/dL Phosphorus (2.5-4.5) mg/dL Magnesium (1.7-2.3) mg/dL Total Bilirubin (0.1-1.2) mg/dL Direct Bilirubin (0-0.2) mg/dL AST (5-40) units/L ALT (7-56) units/L Total Creatine Kinase 34555 H (55-170) units/L CK-MB (CK-2) 54.3 H (0.0-4.0) ng/mL Troponin T 0.058 H (0.00-0.029) ng/mL Total Protein (6.3-8.2) g/dL Albumin (3.9-5) g/dL Triglycerides (2-149) mg/dL LDL Cholesterol Direct (50-130) mg/dL HDL Cholesterol (40-59) mg/dL Free T4 (0.76-1.46) ng/dL Salicylates (2.8-20.0) mg/dL Acetaminophen (10.0-30.0) ug/mL Assessment and Plan Assessment: 1) Severe Sepsis with septic shock: present on admission with fever at 105, tachycardia at 195, hypotension, elevated lactate, leukocytosis; source likely aspiration pneumonitis (I doubt pneumonia alone is causing severe sepsis) +/- occult infection ? meningitis, ? right axillary abscess, ? toxic shock syndrome, ?tick bite infection (recently outdoor traveling now AMS/fever/rash). 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 no collection no perforation no obvious ischemic bowel 12) VT Recommendations: follow blood culture obtain UA and urine culture and respiratory culture obtain lumbar puncture alexandra check HIV start clindamycin at 900 mg IV q 8h start ceftriaxone 2 gm IV q 12 h start doxycycline 100 mg IV q 12 h continue vancomycin IV renally adjusted surgery on board Guarded prognosis Will follow. Risa Bryant MD Infectious Diseases [employer] [facility] ([facility] M [phone] O [phone]
[2019-03-17] MEDS ORDERED: SODIUM CHLORIDE 0.9% 1000 ML 3,000 ML IV ONE (10:36)
[2019-03-17] MEDS ORDERED: ALBUMIN HUMAN 25% (25 GM/100 ML) INJ IV ONE (10:36)
[2019-03-17] MEDS ORDERED: SODIUM CHLORIDE 0.9% 500 ML 500 ML ONE (10:52)
--- NOTE | 2019-03-17 11:40 | Consultation ---
History of Present Illness Consult date: 03/17/19 Requesting physician: CINDY VILLAR Reason for consult: other (Severe Sepsis with shock) History of present illness: PULMONARY/CCM CONSULT NOTE (Full dictation # [id number]) Please see dictated notes for full details Past History Past Medical History: other (Morbid obesity, chronic eye discharge) Past Surgical History: Other (unknown) Social history: other (unknown) Family history: other (unknown) Medications and Allergies Allergies Allergy/AdvReac Type Severity Reaction Status Date / Time No Known Allergies Allergy Unverified 03/16/19 17:17 Active Meds: Active Medications Acetaminophen (Tylenol) 650 mg IA Q4H PRN PRN Reason: Fever >101 Fentanyl (Sublimaze) 50 mcg IV Q10MIN PRN PRN Reason: ANALGESIA Last Admin: 03/16/19 17:02 Dose: 50 mcg Documented by: Hydrophilic Ointment (Vaseline Lip Therapy) 1 applic TP Q2HR PRN PRN Reason: Dry Lips Midazolam HCl 100 mg/ Sodium (Chloride) 100 mls @ 2 mls/hr IV TITR PAOLO; Protocol Last Titration: 03/17/19 09:18 Dose: 2 mg/hr, 2 mls/hr Documented by: Fentanyl Citrate (Fentanyl Drip Premix) 2,000 mcg in 100 mls @ 6.804 mls/hr IV TITR PAOLO; Protocol Last Titration: 03/17/19 09:19 Dose: 2 mcg/kg/hr, 13.608 mls/hr Documented by: Sodium Chloride (Nacl 0.9% 1000 Ml) 1,000 mls @ 150 mls/hr IV DIRECT PAOLO Vasopressin 20 unit/ Sodium (Chloride) 101 mls @ 9.09 mls/hr IV TITR PAOLO; Protocol Last Admin: 03/17/19 08:06 Dose: 0.03 units/min, 9.09 mls/hr Documented by: Norepinephrine 8 mg/ Sodium (Chloride) 250 mls @ 3.75 mls/hr IV TITR PAOLO; Protocol Last Titration: 03/17/19 09:19 Dose: 25 mcg/min, 46.875 mls/hr Documented by: Phenylephrine HCl 100 mg/ (Sodium Chloride) 100 mls @ 3 mls/hr IV TITR PAOLO; Protocol Last Titration: 03/17/19 09:19 Dose: 180 mcg/min, 10.8 mls/hr Documented by: Sodium Chloride (Nacl 0.9% 1000 Ml) 3,000 mls @ 999 mls/hr IV BOLUS ONE Stop: 03/17/19 13:36 Last Admin: 03/17/19 10:44 Dose: 999 mls/hr Documented by: Clindamycin HCl (Cleocin 900 Mg/50 Ml) 900 mg in 50 mls @ 100 mls/hr IV Q8HR PAOLO; Protocol Ceftriaxone Sodium (Rocephin/Ns 2 Gm/100 Ml) 2 gm in 100 mls @ 200 mls/hr IV Q12HR PAOLO; Protocol Doxycycline Hyclate 100 mg/ (Sodium Chloride) 250 mls @ 250 mls/hr IV Q12HR PAOLO; Protocol Midazolam HCl (Versed) 2 mg IV Q10MIN PRN PRN Reason: Sedation Multi-Ingred Cream/Lotion/Oil/Oint (Artificial Tears Ophth Oint) 1 applic OU Q4HR PRN PRN Reason: Dry Eye(s) Ondansetron HCl (Zofran) 4 mg IV Q8H PRN PRN Reason: Nausea And Vomiting Physical Examination Vital signs: Vital Signs Pulse Resp Pulse Ox 195 H 29 H 82 L 03/16/19 15:26 03/16/19 15:26 03/16/19 15:26 Results - Laboratory Findings CBC and BMP: 03/16/19 16:03 03/17/19 03:45 ABG POC ABG pH 7.193 (7.35-7.45) L 03/17/19 05:47 POC ABG pCO2 45.2 (35-45) H 03/17/19 05:47 POC ABG pO2 65 (80-105) L 03/17/19 05:47 POC ABG HCO3 17.4 (22-26 mml/L) 03/17/19 05:47 POC ABG Total CO2 19 (23-27mmol/L) 03/17/19 05:47 POC ABG O2 Sat 87 03/17/19 05:47 PT/INR, D-dimer PT 15.9 Sec. (12.2-14.9) H 03/16/19 17:05 INR 1.30 (0.87-1.13) H 03/16/19 17:05 Abnormal lab findings: Abnormal Labs 03/16/19 03/16/19 03/16/19 16:03 16:05 16:59 WBC 27.0 H RBC 5.55 H Hgb 15.7 H Hct 47.1 H Plt Count 75 L Seg Neuts % (Manual) 85.0 H Lymphocytes % (Manual) 2.0 L Seg Neutrophils # Man 23.0 H Lymphocytes # (Manual) 0.5 L PT INR POC ABG pH 7.297 L POC ABG pCO2 33.0 L POC ABG pO2 Sodium 127 L Chloride 87.8 L Carbon Dioxide 17 L BUN 49 H Creatinine 5.8 H Glucose 150 H Lactic Acid Calcium 6.6 L Phosphorus Magnesium 1.10 L Total Bilirubin Direct Bilirubin AST ALT Total Creatine Kinase 82302 H CK-MB (CK-2) Troponin T Total Protein Albumin Triglycerides LDL Cholesterol Direct HDL Cholesterol Free T4 Salicylates Acetaminophen 03/16/19 03/16/19 03/16/19 17:05 17:05 17:05 WBC RBC Hgb Hct Plt Count Seg Neuts % (Manual) Lymphocytes % (Manual) Seg Neutrophils # Man Lymphocytes # (Manual) PT INR POC ABG pH POC ABG pCO2 POC ABG pO2 Sodium Chloride Carbon Dioxide BUN Creatinine Glucose Lactic Acid 5.10 H* Calcium Phosphorus Magnesium Total Bilirubin Direct Bilirubin AST ALT Total Creatine Kinase 34904 H CK-MB (CK-2) 83.1 H Troponin T Total Protein Albumin Triglycerides LDL Cholesterol Direct HDL Cholesterol Free T4 0.72 L Salicylates Acetaminophen 03/16/19 03/16/19 03/16/19 17:05 17:05 17:05 WBC RBC Hgb Hct Plt Count Seg Neuts % (Manual) Lymphocytes % (Manual) Seg Neutrophils # Man Lymphocytes # (Manual) PT 15.9 H INR 1.30 H POC ABG pH POC ABG pCO2 POC ABG pO2 Sodium Chloride Carbon Dioxide BUN Creatinine Glucose Lactic Acid Calcium Phosphorus Magnesium Total Bilirubin Direct Bilirubin AST ALT Total Creatine Kinase CK-MB (CK-2) Troponin T Total Protein Albumin Triglycerides LDL Cholesterol Direct HDL Cholesterol Free T4 Salicylates < 0.3 L Acetaminophen < 5.0 L 03/16/19 03/16/19 03/16/19 17:05 20:35 21:45 WBC RBC Hgb Hct Plt Count Seg Neuts % (Manual) Lymphocytes % (Manual) Seg Neutrophils # Man Lymphocytes # (Manual) PT INR POC ABG pH POC ABG pCO2 POC ABG pO2 Sodium Chloride Carbon Dioxide BUN Creatinine Glucose Lactic Acid 3.30 H* 3.30 H* Calcium Phosphorus Magnesium Total Bilirubin 6.20 H Direct Bilirubin 5.9 H AST 800 H ALT 120 H Total Creatine Kinase CK-MB (CK-2) Troponin T Total Protein 4.4 L Albumin 2.4 L Triglycerides LDL Cholesterol Direct HDL Cholesterol Free T4 Salicylates Acetaminophen 03/16/19 03/16/19 03/17/19 22:32 Unknown 03:45 WBC RBC Hgb Hct Plt Count Seg Neuts % (Manual) Lymphocytes % (Manual) Seg Neutrophils # Man Lymphocytes # (Manual) PT INR POC ABG pH POC ABG pCO2 POC ABG pO2 Sodium 131 L Chloride 88.9 L Carbon Dioxide BUN 53 H Creatinine 7.1 H Glucose Lactic Acid 3.00 H* Calcium 5.4 L* D Phosphorus 7.30 H Magnesium 1.60 L Total Bilirubin 5.90 H Direct Bilirubin AST 801 H ALT 109 H Total Creatine Kinase 16205 H CK-MB (CK-2) Troponin T 0.047 H D Total Protein 4.5 L Albumin 2.0 L Triglycerides 395 H LDL Cholesterol Direct 10 L HDL Cholesterol 7 L Free T4 Salicylates Acetaminophen 03/17/19 03/17/19 03/17/19 03:45 03:45 05:47 WBC RBC Hgb Hct Plt Count Seg Neuts % (Manual) Lymphocytes % (Manual) Seg Neutrophils # Man Lymphocytes # (Manual) PT INR POC ABG pH 7.193 L POC ABG pCO2 45.2 H POC ABG pO2 65 L Sodium Chloride Carbon Dioxide BUN Creatinine Glucose Lactic Acid 4.10 H* Calcium Phosphorus Magnesium Total Bilirubin Direct Bilirubin AST ALT Total Creatine Kinase 15746 H CK-MB (CK-2) 41.5 H Troponin T 0.054 H Total Protein Albumin Triglycerides LDL Cholesterol Direct HDL Cholesterol Free T4 Salicylates Acetaminophen 03/17/19 03/17/19 07:16 07:16 WBC RBC Hgb Hct Plt Count Seg Neuts % (Manual) Lymphocytes % (Manual) Seg Neutrophils # Man Lymphocytes # (Manual) PT INR POC ABG pH POC ABG pCO2 POC ABG pO2 Sodium Chloride Carbon Dioxide BUN Creatinine Glucose Lactic Acid 5.50 H* Calcium Phosphorus Magnesium Total Bilirubin Direct Bilirubin AST ALT Total Creatine Kinase 78157 H CK-MB (CK-2) 54.3 H Troponin T 0.058 H Total Protein Albumin Triglycerides LDL Cholesterol Direct HDL Cholesterol Free T4 Salicylates Acetaminophen
--- NOTE | 2019-03-17 12:09 | Consultation ---
History of Present Illness Consult date: 03/17/19 History of present illness: Mr. Caballero is a 43 y/o male who presented to [facility] with difficulty speaking and worsening mental status x2-3 days. The patient is intubated and there is no one at bedside, so this HPI is obtained from the medical record. Per EMR, the patient is visiting from [place] and was staying with a friend when he began complaining of generalized illness and left eye discharge. Yesterday at lunch, he began to have trouble speaking, walking and breathing. He also became acutely cold, clammy and diaphoretic. There was no report of chest pain. While in the ED, he went into SVT with rates in the 200s. After a shock, he flipped into polymorphic VT, f/b monomorphic VT, then subsequently SR/ST. Head CT was negative and a CT of the abdomen pelvis suggestive of enteritis. Cardiology has been consulted d/t the initial concern for stroke. Past History Past Medical History: GERD (per medical record), other (Morbid obesity, chronic eye discharge) Past Surgical History: Other (unknown) Social history: other (unknown) Family history: other (unknown) Medications and Allergies Allergies Allergy/AdvReac Type Severity Reaction Status Date / Time No Known Allergies Allergy Unverified 03/16/19 17:17 Active Meds: Active Medications Acetaminophen (Tylenol) 650 mg IL Q4H PRN PRN Reason: Fever >101 Famotidine (Pepcid) 20 mg PO BID PAOLO Fentanyl (Sublimaze) 50 mcg IV Q10MIN PRN PRN Reason: ANALGESIA Last Admin: 03/16/19 17:02 Dose: 50 mcg Documented by: Hydrophilic Ointment (Vaseline Lip Therapy) 1 applic TP Q2HR PRN PRN Reason: Dry Lips Midazolam HCl 100 mg/ Sodium (Chloride) 100 mls @ 2 mls/hr IV TITR PAOLO; Protocol Last Titration: 03/17/19 09:18 Dose: 2 mg/hr, 2 mls/hr Documented by: Fentanyl Citrate (Fentanyl Drip Premix) 2,000 mcg in 100 mls @ 6.804 mls/hr IV TITR PAOLO; Protocol Last Titration: 03/17/19 09:19 Dose: 2 mcg/kg/hr, 13.608 mls/hr Documented by: Sodium Chloride (Nacl 0.9% 1000 Ml) 1,000 mls @ 150 mls/hr IV DIRECT PAOLO Vasopressin 20 unit/ Sodium (Chloride) 101 mls @ 9.09 mls/hr IV TITR PAOLO; Protocol Last Admin: 03/17/19 08:06 Dose: 0.03 units/min, 9.09 mls/hr Documented by: Norepinephrine 8 mg/ Sodium (Chloride) 250 mls @ 3.75 mls/hr IV TITR PAOLO; Protocol Last Titration: 03/17/19 09:19 Dose: 25 mcg/min, 46.875 mls/hr Documented by: Phenylephrine HCl 100 mg/ (Sodium Chloride) 100 mls @ 3 mls/hr IV TITR PAOLO; Protocol Last Titration: 03/17/19 09:19 Dose: 180 mcg/min, 10.8 mls/hr Documented by: Sodium Chloride (Nacl 0.9% 1000 Ml) 3,000 mls @ 999 mls/hr IV BOLUS ONE Stop: 03/17/19 13:36 Last Admin: 03/17/19 10:44 Dose: 999 mls/hr Documented by: Clindamycin HCl (Cleocin 900 Mg/50 Ml) 900 mg in 50 mls @ 100 mls/hr IV Q8HR PAOLO; Protocol Ceftriaxone Sodium (Rocephin/Ns 2 Gm/100 Ml) 2 gm in 100 mls @ 200 mls/hr IV Q12HR PAOLO; Protocol Doxycycline Hyclate 100 mg/ (Sodium Chloride) 250 mls @ 250 mls/hr IV Q12HR PAOLO; Protocol Magnesium Sulfate (Magnesium Sulfate 2gm/50ml) 2 gm in 50 mls @ 25 mls/hr IV ONCE ONE Stop: 03/17/19 14:59 Midazolam HCl (Versed) 2 mg IV Q10MIN PRN PRN Reason: Sedation Multi-Ingred Cream/Lotion/Oil/Oint (Artificial Tears Ophth Oint) 1 applic OU Q4HR PRN PRN Reason: Dry Eye(s) Ondansetron HCl (Zofran) 4 mg IV Q8H PRN PRN Reason: Nausea And Vomiting Review of Systems ROS unobtainable: due to endotracheal tube Physical Examination Vital Signs Pulse Resp Pulse Ox 195 H 29 H 82 L 03/16/19 15:26 03/16/19 15:26 03/16/19 15:26 General appearance: no acute distress HEENT: Positive: PERRL Neck: Positive: neck supple Cardiac: Positive: Regular Rhythm Lungs: Positive: Ventilated Respirations Neuro: Positive: Other (withdraws from pain, responds to voice) Abdomen: Positive: Unremarkable Male genitourinary: Positive: deferred Skin: Positive: Clear Musculoskeletal: Decreased Range of Motion Extremities: Present: lower extr. pulses (weak, thready ) Results 03/16/19 16:03 03/17/19 03:45 Cardiac Enzymes 03/16/19 03/16/19 03/17/19 Range/Units 17:05 17:05 03:45 AST 800 H 801 H (5-40) units/L CK-MB (CK-2) 83.1 H (0.0-4.0) ng/mL 03/17/19 03/17/19 Range/Units 03:45 07:16 AST (5-40) units/L CK-MB (CK-2) 41.5 H 54.3 H (0.0-4.0) ng/mL Coagulation 03/16/19 Range/Units 17:05 PT 15.9 H (12.2-14.9) Sec. INR 1.30 H (0.87-1.13) APTT 31.7 (24.2-36.6) Sec. Lipids 03/16/19 Range/Units 22:32 Triglycerides 395 H (2-149) mg/dL Cholesterol 88 (50-199) mg/dL HDL Cholesterol 7 L (40-59) mg/dL Cholesterol/HDL Ratio 12.57 % CBC 03/16/19 Range/Units 16:03 WBC 27.0 H (4.5-11.0) K/mm3 RBC 5.55 H (3.65-5.03) M/mm3 Hgb 15.7 H (11.8-15.2) gm/dl Hct 47.1 H (35.5-45.6) % Plt Count 75 L (140-440) K/mm3 Comprehensive Metabolic Panel 03/16/19 03/16/19 03/17/19 Range/Units 16:05 17:05 03:45 Sodium 127 L 131 L (137-145) mmol/L Potassium 4.3 4.2 (3.6-5.0) mmol/L Chloride 87.8 L 88.9 L (98-107) mmol/L Carbon Dioxide 17 L 22 (22-30) mmol/L BUN 49 H 53 H (9-20) mg/dL Creatinine 5.8 H 7.1 H (0.8-1.5) mg/dL Glucose 150 H 78 (75-100) mg/dL Calcium 6.6 L 5.4 L* D (8.4-10.2) mg/dL Direct Bilirubin 5.9 H (0-0.2) mg/dL Indirect Bilirubin 0.3 mg/dL AST 800 H 801 H (5-40) units/L ALT 120 H 109 H (7-56) units/L Alkaline Phosphatase 51 67 (35-129) units/L Total Protein 4.4 L 4.5 L (6.3-8.2) g/dL Albumin 2.4 L 2.0 L (3.9-5) g/dL - Imaging and Cardiology Echo: pending EKG interpretations - Telemetry EKG Rhythm: Sinus Tachycardia Assessment and Plan The patient is a 43 y/o male with a known history of GERD who presented to [facility] with AMS, SOB and difficulty speaking. He is intubated, sedated and on multiple pressors. ID, nephrology and pulmonary recommendations noted. We will obtain an echocardiogram and continue supportive care at this time. Will initiate m etoprolol to optimize heart rate. Further recommendations pending hospital course. The patient has been seen in conjunction with Dr. Moreno, who agrees with the assessment and plan. - Patient Problems (1) Ventricular tachycardia Current Visit: Yes Status: Acute (2) Acute respiratory failure Current Visit: Yes Status: Acute (3) Metabolic encephalopathy Current Visit: Yes Status: Acute (4) Elevated LFTs Current Visit: Yes Status: Acute (5) Enteritis Current Visit: Yes Status: Suspected (6) Acute renal failure Current Visit: Yes Status: Acute (7) Aspiration pneumonia Current Visit: Yes Status: Suspected (8) Hypomagnesemia Current Visit: Yes Status: Acute (9) Multi-organ system dysfunction Current Visit: Yes Status: Acute (10) Rhabdomyolysis Current Visit: Yes Status: Acute (11) SVT (supraventricular tachycardia) Current Visit: Yes Status: Resolved (12) Septic shock Current Visit: Yes Status: Acute (13) Thrombocytopenia Current Visit: Yes Status: Acute
[2019-03-17] MEDS ORDERED: SODIUM BICARB 8.4% 50 MEQ/50 ML SYRINGE IV ONE (12:21)
[2019-03-17] MEDS ORDERED: DOPamine/D5W 800 MG/250 ML 800 MG/250 ML BAG IV ONE (12:37)
--- NOTE | 2019-03-17 12:59 | Event Note ---
Date: 03/17/19 right femoral A-line placed remains hypotensive remains with metabolic acidosis and BE of 17 on ABG - resume bicarbonate drip - begin dopamine - increase peep to 8 cm H2O - re-evaluate prn
[2019-03-17] MEDS ORDERED: MAGNESIUM SULFATE 2 GM/50 ML BAG IV ONE (13:00)
[2019-03-17] MEDS ORDERED: FAMOTIDINE 20 MG TAB PO SCH (13:00)
[2019-03-17] MEDS: cefTRIAXone/NS 2 GM/100 ML 2 GM/100 ML BAG IV SCH ×2 (13:36→21:06)
[2019-03-17] MEDS ORDERED: SIMPLE SYRUP 15 ML FEEDTUBE PRN ×2 (14:45)
[2019-03-17] MEDS ORDERED: SODIUM BICARBONATE 325 MG TAB FEEDTUBE PRN (14:45)
[2019-03-17] MEDS ORDERED: LIPASE 10,500/PROTEASE 25,000/AMYLASE 43,750 (UNITS) DR CAP FEEDTUBE PRN (14:45)
[2019-03-17] MEDS: DOXYCYCLINE HYCLATE 100 MG in SODIUM CHLORIDE 0.9% 250ML 250 ML IV SCH ×2 (15:00→21:06)
[2019-03-17 15:07] LABS: Hematocrit 43.1 % (35.5-45.6); Hemoglobin 13.9 gm/dl (11.8-15.2); Mean Corpuscular HGB Conc 32 % (32-34); Mean Corpuscular Volume 87 fl (84-94); Red Blood Count 4.93 M/mm3 (3.65-5.03); Red Cell Distribution Width 15.8 % (13.2-15.2)
[2019-03-17 15:11] LABS: Platelet Count 45 K/mm3 (140-440)
--- NOTE | 2019-03-17 16:09 | Progress Note ---
Assessment and Plan 43 yo M with 1. septic shock 2. RUBEN 3. rhabdomyolysis 4. AMS 5. multiorgan failure 6. electrolyte abnormalities 7. right axillary cellulitis Plan: 1. neuro - sedation as needed 2. CV - on 4 pressors now, abigail, DVT ppx. CBC daily - monitor thrombocytopenia 3. Resp - vent management per ICU 4. GI - GI ppx. keep NPO. aggressive IVF. OGT to LIWS 5. - garcia. monitor Bolt Maker, CK 6. ID - ID on board, continue abx. Obtain ultrasound of right axilla to r/o abscess vs LAD 7. Endo - blood glucose monitoring 8. Tox - obtain UDS Pt critically ill and now on 4 pressors. He does not have evidence of peritonitis and no definitive indication for surgical intervention. Furthermore, in his current state, the patient would not survive an abdominal exploration. Recommend continuing supportive care as above. Discussed with Dr. Jj. Will obtain urine drug screen and ultrasound of right axilla. Per nursing, patient's brother is on his way from [place]. No family or friends present at bedside. Thank you, please call with questions. Subjective Date of service: 03/17/19 Narrative: Pt seen and examined. Pressor requirements have elevated to 4 pressors. Objective Vital Signs - 12hr 03/17/19 03/17/19 03/17/19 04:20 05:47 05:51 Temperature Pulse Rate 131 H 115 H 115 H Pulse Rate [ Apical] Pulse Rate [ Right Dorsalis Pedis] Respiratory 28 H 28 H Rate Blood Pressure 90/48 O2 Sat by Pulse 98 94 95 Oximetry 03/17/19 03/17/19 03/17/19 06:01 06:11 06:21 Temperature Pulse Rate 115 H 114 H 113 H Pulse Rate [ Apical] Pulse Rate [ Right Dorsalis Pedis] Respiratory 27 H 28 H 27 H Rate Blood Pressure 93/45 93/45 89/51 O2 Sat by Pulse 95 96 94 Oximetry 03/17/19 03/17/19 03/17/19 06:31 06:41 06:51 Temperature Pulse Rate 112 H 112 H 112 H Pulse Rate [ Apical] Pulse Rate [ Right Dorsalis Pedis] Respiratory 28 H 26 H 25 H Rate Blood Pressure 89/51 94/45 87/56 O2 Sat by Pulse 93 95 91 Oximetry 03/17/19 03/17/1903/17/19 07:01 07:11 07:21 Temperature Pulse Rate 111 H 111 H 109 H Pulse Rate [ Apical] Pulse Rate [ Right Dorsalis Pedis] Respiratory 28 H 29 H 22 Rate Blood Pressure 93/53 93/53 96/47 O2 Sat by Pulse 94 95 95 Oximetry 03/17/19 03/17/19 03/17/19 07:31 07:40 07:51 Temperature Pulse Rate 108 H 107 H 105 H Pulse Rate [ Apical] Pulse Rate [ Right Dorsalis Pedis] Respiratory 22 26 H 30 H Rate Blood Pressure 96/47 88/53 60/42 O2 Sat by Pulse 95 95 96 Oximetry 03/17/19 03/17/19 03/17/19 07:53 08:01 08:11 Temperature 98.7 F Pulse Rate 102 H 103 H Pulse Rate [ Apical] Pulse Rate [ Right Dorsalis Pedis] Respiratory 27 H 26 H Rate Blood Pressure 60/42 85/59 O2 Sat by Pulse 95 91 Oximetry 03/17/19 03/17/19 03/17/19 08:19 08:21 08:30 Temperature 98.7 F Pulse Rate 103 H Pulse Rate [ 103 H Apical] Pulse Rate [ Right Dorsalis Pedis] Respiratory 31 H 30 H Rate Blood Pressure 94/76 O2 Sat by Pulse 96 88 Oximetry 03/17/19 03/17/19 03/17/19 08:31 08:36 08:41 Temperature Pulse Rate 103 H 102 H 103 H Pulse Rate [ Apical] Pulse Rate [ Right Dorsalis Pedis] Respiratory 31 H 30 H Rate Blood Pressure 94/76 94/76 O2 Sat by Pulse 97 94 93 Oximetry 03/17/19 03/17/19 03/17/19 08:51 09:01 09:11 Temperature Pulse Rate 101 H 102 H 103 H Pulse Rate [ Apical] Pulse Rate [ Right Dorsalis Pedis] Respiratory 22 29 H 30 H Rate Blood Pressure 142/93 142/93 129/101 O2 Sat by Pulse 95 95 95 Oximetry 03/17/19 03/17/19 03/17/19 09:21 09:31 09:41 Temperature Pulse Rate 103 H 103 H 104 H Pulse Rate [ Apical] Pulse Rate [ Right Dorsalis Pedis] Respiratory 27 H 28 H 26 H Rate Blood Pressure 147/94 147/94 77/23 O2 Sat by Pulse 95 97 97 Oximetry 03/17/19 03/17/19 03/17/19 09:51 10:01 10:11 Temperature Pulse Rate 104 H 104 H 102 H Pulse Rate [ Apical] Pulse Rate [ Right Dorsalis Pedis] Respiratory 25 H 31 H 31 H Rate Blood Pressure 71/24 71/24 71/24 O2 Sat by Pulse 97 97 98 Oximetry 03/17/19 03/17/19 03/17/19 10:21 10:31 10:41 Temperature Pulse Rate 101 H 101 H 101 H Pulse Rate [ Apical] Pulse Rate [ Right Dorsalis Pedis] Respiratory 24 17 30 H Rate Blood Pressure 71/24 71/24 71/24 O2 Sat by Pulse 97 91 92 Oximetry 03/17/19 03/17/19 03/17/19 10:51 11:00 11:11 Temperature Pulse Rate 102 H 101 H 101 H Pulse Rate [ Apical] Pulse Rate [ Right Dorsalis Pedis] Respiratory 31 H 19 22 Rate Blood Pressure 82/46 99/69 99/69 O2 Sat by Pulse 84 Oximetry 03/17/19 03/17/19 03/17/19 11:21 11:30 11:41 Temperature Pulse Rate 102 H 100 H 100 H Pulse Rate [ Apical] Pulse Rate [ Right Dorsalis Pedis] Respiratory 24 20 26 H Rate Blood Pressure 99/69 94/45 107/63 O2 Sat by Pulse Oximetry 03/17/19 03/17/19 03/17/19 11:51 12:01 12:11 Temperature Pulse Rate 100 H 99 H 100 H Pulse Rate [ Apical] Pulse Rate [ Right Dorsalis Pedis] Respiratory 31 H 29 H 29 H Rate Blood Pressure 125/93 125/93 41/17 O2 Sat by Pulse Oximetry 03/17/19 03/17/19 03/17/19 12:13 12:21 12:29 Temperature Pulse Rate 100 H 98 H Pulse Rate [ Apical] Pulse Rate [ 115 H Right Dorsalis Pedis] Respiratory 31 H 19 Rate Blood Pressure 63/39 O2 Sat by Pulse 94 Oximetry 03/17/19 03/17/19 03/17/19 12:30 12:31 12:41 Temperature 98.0 F Pulse Rate 101 H 102 H Pulse Rate [ Apical] Pulse Rate [ Right Dorsalis Pedis] Respiratory 23 22 Rate Blood Pressure 63/39 63/39 O2 Sat by Pulse Oximetry 03/17/19 03/17/19 03/17/19 12:51 12:54 13:01 Temperature Pulse Rate 103 H 108 H 113 H Pulse Rate [ Apical] Pulse Rate [ Right Dorsalis Pedis] Respiratory 22 16 Rate Blood Pressure 102/79 94/52 102/79 O2 Sat by Pulse Oximetry 03/17/19 03/17/19 03/17/19 13:11 13:21 13:31 Temperature Pulse Rate 116 H 118 H 118 H Pulse Rate [ Apical] Pulse Rate [ Right Dorsalis Pedis] Respiratory 15 17 19 Rate Blood Pressure 102/79 137/90 137/90 O2 Sat by Pulse Oximetry 03/17/19 03/17/19 03/17/19 13:41 13:51 14:01 Temperature Pulse Rate 117 H 119 H 118 H Pulse Rate [ Apical] Pulse Rate [ Right Dorsalis Pedis] Respiratory 18 16 17 Rate Blood Pressure 137/90 137/90 137/90 O2 Sat by Pulse Oximetry 03/17/19 03/17/19 03/17/19 14:11 14:21 14:31 Temperature Pulse Rate 118 H 120 H 118 H Pulse Rate [ Apical] Pulse Rate [ Right Dorsalis Pedis] Respiratory 14 18 16 Rate Blood Pressure 137/90 137/90 137/90 O2 Sat by Pulse Oximetry 03/17/19 14:41 Temperature Pulse Rate 115 H Pulse Rate [ Apical] Pulse Rate [ Right Dorsalis Pedis] Respiratory 19 Rate Blood Pressure 84/53 O2 Sat by Pulse Oximetry - General physical appearance Narrative Exam: Gen: Arousable on vent. Appears agitated at times. ENT; ETT and OGT in place CV: s1, S2+ tachy resp: on vent Abd: soft, ND, NT. no r/r/g. no peritoneal signs Ext: b/l LE edema. R axilla cellulitis and induration, no fluctuance or drainage. Mild TTP. Gu: Garcia - no urine - Labs 03/17/19 14:37 03/17/19 03:45 Diabetes panel 03/16/19 03/16/19 03/16/19 Range/Units 16:05 17:05 22:32 Sodium 127 L (137-145) mmol/L Potassium 4.3 (3.6-5.0) mmol/L Chloride 87.8 L (98-107) mmol/L Carbon Dioxide 17 L (22-30) mmol/L BUN 49 H (9-20) mg/dL Creatinine 5.8 H (0.8-1.5) mg/dL Glucose 150 H (75-100) mg/dL Calcium 6.6 L (8.4-10.2) mg/dL AST 800 H (5-40) units/L ALT 120 H (7-56) units/L Alkaline Phosphatase 51 (35-129) units/L Total Protein 4.4 L (6.3-8.2) g/dL Albumin 2.4 L (3.9-5) g/dL Triglycerides 395 H (2-149) mg/dL HDL Cholesterol 7 L (40-59) mg/dL 03/17/19 Range/Units 03:45 Sodium 131 L (137-145) mmol/L Potassium 4.2 (3.6-5.0) mmol/L Chloride 88.9 L (98-107) mmol/L Carbon Dioxide 22 (22-30) mmol/L BUN 53 H (9-20) mg/dL Creatinine 7.1 H (0.8-1.5) mg/dL Glucose 78 (75-100) mg/dL Calcium 5.4 L* D (8.4-10.2) mg/dL AST 801 H (5-40) units/L ALT 109 H (7-56) units/L Alkaline Phosphatase 67 (35-129) units/L Total Protein 4.5 L (6.3-8.2) g/dL Albumin 2.0 L (3.9-5) g/dL Triglycerides (2-149) mg/dL HDL Cholesterol (40-59) mg/dL Thyroid panel 03/16/19 Range/Units 17:05 TSH 2.200 (0.270-4.200) mlU/mL Calcium panel 03/16/19 03/16/19 03/17/19 Range/Units 16:05 17:05 03:45 Calcium 6.6 L 5.4 L* D (8.4-10.2) mg/dL Phosphorus 7.30 H (2.5-4.5) mg/dL Albumin 2.4 L 2.0 L (3.9-5) g/dL Pituitary panel 03/16/19 03/16/19 03/17/19 Range/Units 16:05 17:05 03:45 Sodium 127 L 131 L (137-145) mmol/L Potassium 4.3 4.2 (3.6-5.0) mmol/L Chloride 87.8 L 88.9 L (98-107) mmol/L Carbon Dioxide 17 L 22 (22-30) mmol/L BUN 49 H 53 H (9-20) mg/dL Creatinine 5.8 H 7.1 H (0.8-1.5) mg/dL Glucose 150 H 78 (75-100) mg/dL Calcium 6.6 L 5.4 L* D (8.4-10.2) mg/dL TSH 2.200 (0.270-4.200) mlU/mL Adrenal panel 03/16/19 03/16/19 03/17/19 Range/Units 16:05 17:05 03:45 Sodium 127 L 131 L (137-145) mmol/L Potassium 4.3 4.2 (3.6-5.0) mmol/L Chloride 87.8 L 88.9 L (98-107) mmol/L Carbon Dioxide 17 L 22 (22-30) mmol/L BUN 49 H 53 H (9-20) mg/dL Creatinine 5.8 H 7.1 H (0.8-1.5) mg/dL Glucose 150 H 78 (75-100) mg/dL Calcium 6.6 L 5.4 L* D (8.4-10.2) mg/dL Total Bilirubin 6.20 H 5.90 H (0.1-1.2) mg/dL AST 800 H 801 H (5-40) units/L ALT 120 H 109 H (7-56) units/L Alkaline Phosphatase 51 67 (35-129) units/L Total Protein 4.4 L 4.5 L (6.3-8.2) g/dL Albumin 2.4 L 2.0 L (3.9-5) g/dL
[2019-03-17 16:31] LABS: Creatinine,Urine 106.6 mg/dL (0.1-20.0)
[2019-03-17 16:31] LABS: Band Neutrophils # (Manual) 0.3 K/mm3; Total Cells Counted 100
[2019-03-17 16:32] LABS: Basophils % (Manual) 0 % (0.0-1.8); Platelet Estimate Consistent w Auto; RBC Morphology Normal
[2019-03-17 16:39] LABS: Bilirubin,Urine NEG (Negative); Blood,Urine LG (Negative); Color,Urine Amber (Yellow); Mucus,Urine FEW /HPF; Sperm,Urine 2+ /HPF (NP); Urobilinogen,Urine < 2.0 mg/dL (<2.0)
[2019-03-17 16:46] LABS: Protein,Urine >500 mg/dL (Negative)
[2019-03-17 16:54] LABS: Amphetamine Screen,Urine PRESUMPTIVE NEGATIVE; Cannabinoid Screen,Urine PRESUMPTIVE NEGATIVE; Cocaine Screen,Urine PRESUMPTIVE NEGATIVE; Methadone Screen,Urine PRESUMPTIVE NEGATIVE; Opiate Screen,Urine PRESUMPTIVE NEGATIVE
[2019-03-17 17:05] LABS: Benzodiazepines Screen,Urine PRESUMPTIVE POSITIVE
--- NOTE | 2019-03-17 17:24 | Progress Note ---
Assessment and Plan Assessment and plan: Patient is a 43 year old male with PMH of GERD, Obesity, and per family has been homeless on the streets in [place] admitted to our facility following arrival via private vehicle with AMS x 2 Days per friend. On arrival was intubated in the ED noted to have rectal temp of 105 AND SVT with rate in the 250 requiring 2 shocks delivery * Initial rhythm appeared to be SVT * Per friend patient complaining of feeling ill and has some left eye discharge, cold, clammy and diaphrietic by the time arrived to the hospital. Also mentions a possibility of a right axilla abscess. The and went to stay with his girlfriend the last 2 days and this morning when he saw the patient he was ill-appearing but sleeping. * Currently on 4 pressors * Start on Elizabeth culture including coverage for possible Meningitis CHEST 1 VIEW . IMPRESSION: 1. Endotracheal tube in good position. 2. Nasogastric tube doubled back on itself at the level of the [place] with the tip not seen. The tube will need to be removed/reposition. CT of the chest, abdomen and pelvis without contrast . IMPRESSION: 1. Parenchymal disease in both lower lobes posteromedially may be related to aspiration pneumonia. 2. Moderately dilated small bowel bowel loops in the mid to upper abdomen anteriorly with mild associated bowel wall thickening. Localized enteritis and small bowel ischemia should be considered. CT head/brain wo contrast. IMPRESSION: 1. Some component of diffuse cerebral edema cannot be excluded. However, this finding may be artifactual secondary to patient positioning. Close follow-up is recommended. No definitive signs of herniation or large territorial infarct at this time. 2. Otherwise, no focal mass, hemorrhage, hydrocephalus, or large infarct seen. Multi-Organ failure Septic Shock Severe Sepsis Acute Metabolic Encephalopathy Acute Respiratory Failure with Hypoxia SVT with Polymorphic Vtach Rhabdomyolysis Severe Metabolic Acidosis Acute Cystitis Acute Kidney Failure secondary to ATN ANURIC Thrombocytopenia, Hypomagnesemia, Suspect Aspiration pneumonia right axillary cellulitis Enteritis Hypoglycemia Plan: Continue supportive health care marketing manager impressions noted and appreciated wean pressors as needed Obtain Bicarbonate Give additional Fluids Aspiration Precautions and VAP bundle Replace Electrolyte Ultrasound to further evaluate right axilla to r/o abscess vs LAD Monitor Blood glocus prevent hypoglycemia Obtain UDS Per Nephrology * Its risky and he wouldn't tolerate hemodialysis at this point. * Continue maintenance IV fluids. Monitor CK level With four pressors will not transfuse DVT/GI prophy Poor prognosis Family informed and updated of clinical condition The high probability of a clinically significant, sudden or life threatening deterioration of the [multipe organs] system(s) required my full and direct attention, intervention and personal management. The aggregate critical care time was [75] minutes. This time is in addition to time spent performing reported procedures but includes the following: [x] Data Review and interpretation [x] Patient assessment and monitoring of vital signs [x] Documentation [x] Medication orders and management History Interval history: Patient seen and examined, remains on full MVS. awakens to voice later today on reexamination, Still gravely sick on multiple pressors. Brother and childhood friend at bedside. Still no Urine output per nursing staff. Hospitalist Physical - Constitutional Vitals: Temp Pulse Resp BP Pulse Ox 100.9 F H 119 H 20 118/100 93 03/17/19 16:00 03/17/19 16:31 03/17/19 16:31 03/17/19 16:31 03/17/19 16:31 General appearance: Present: severe distress - EENT Eyes: Present: PERRL, EOM intact, conjunctival injection ENT: other (on mechanical ventilation with AMS unable to access) - Neck Neck: Present: supple - Respiratory Respiratory effort: other (on full MVS) Respiratory: bilateral: diminished - Cardiovascular Rhythm: regular Heart Sounds: Present: S1 & S2. Absent: gallop, systolic murmur, diastolic murmur, rub - Extremities Extremities: no ischemia, pulses intact, pulses symmetrical, normal temperature Extremity abnormal: edema (trace) Peripheral Pulses: within normal limits - Abdominal General gastrointestinal: soft, non-tender, non-distended, normal bowel sounds - Integumentary Integumentary: Present: warm, erythema (right axialla with soft tissue swelling) - Psychiatric Psychiatric: other (ams) - Neurologic Neurologic: other (on mechanical ventilation with ams) - Allied Health Allied health notes reviewed: nursing Results - Labs CBC & Chem 7: 03/17/19 14:37 03/17/19 03:45 Labs: Laboratory Last Values WBC 29.3 K/mm3 (4.5-11.0) H 03/17/19 14:37 RBC 4.93 M/mm3 (3.65-5.03) 03/17/19 14:37 Hgb 13.9 gm/dl (11.8-15.2) 03/17/19 14:37 Hct 43.1 % (35.5-45.6) 03/17/19 14:37 MCV 87 fl (84-94) 03/17/19 14:37 MCH 28 pg (28-32) 03/17/19 14:37 MCHC 32 % (32-34) 03/17/19 14:37 RDW 15.8 % (13.2-15.2) H 03/17/19 14:37 Plt Count 45 K/mm3 (140-440) L 03/17/19 14:37 Add Manual Diff Complete 03/17/19 14:37 Total Counted 100 03/17/19 14:37 Seg Neutrophils % Operating Room Nurse 03/17/19 14:37 Seg Neuts % (Manual) 81.0 % (40.0-70.0) H 03/17/19 14:37 1.0 % 03/17/19 14:37 1.0 % (13.4-35.0) L 03/17/19 14:37 Reactive Lymphs % (Man) 1.0 % 03/17/19 14:37 15.0 % (0.0-7.3) H 03/17/19 14:37 1.0 % (0.0-4.3) 03/17/19 14:37 0 % (0.0-1.8) 03/17/19 14:37 0 % 03/17/19 14:37 0 % 03/17/19 14:37 0 % 03/17/19 14:37 0 % 03/17/19 14:37 Nucleated RBC % Not Reportable 03/17/19 14:37 Seg Neutrophils # Man 23.7 K/mm3 (1.8-7.7) H 03/17/19 14:37 Band Neutrophils # 0.3 K/mm3 03/17/19 14:37 0.3 K/mm3 (1.2-5.4) L 03/17/19 14:37 Abs React Lymphs (Man) 0.3 K/mm3 03/17/19 14:37 4.4 K/mm3 (0.0-0.8) H 03/17/19 14:37 0.3 K/mm3 (0.0-0.4) 03/17/19 14:37 0.0 K/mm3 (0.0-0.1) 03/17/19 14:37 0.0 K/mm3 03/17/19 14:37 0.0 K/mm3 03/17/19 14:37 0.0 K/mm3 03/17/19 14:37 Blast Cells # 0.0 K/mm3 03/17/19 14:37 WBC Morphology Not Reportable 03/17/19 14:37 Hypersegmented Neuts Not Reportable 03/17/19 14:37 Hyposegmented Neuts Not Reportable 03/17/19 14:37 Hypogranular Neuts Not Reportable 03/17/19 14:37 Not Reportable 03/17/19 14:37 Not Reportable 03/17/19 14:37 Not Reportable 03/17/19 14:37 Not Reportable 03/17/19 14:37 Not Reportable 03/17/19 14:37 Not Reportable 03/17/19 14:37 Consistent w auto 03/17/19 14:37 Not Reportable 03/17/19 14:37 Plt Clumps, EDTA Not Reportable 03/17/19 14:37 Not Reportable 03/17/19 14:37 Not Reportable 03/17/19 14:37 Not Reportable 03/17/19 14:37 Plt Morphology Comment Not Reportable 03/17/19 14:37 RBC Morphology Normal 03/17/19 14:37 Dimorphic RBCs Not Reportable 03/17/19 14:37 Not Reportable 03/17/19 14:37 Not Reportable 03/17/19 14:37 Not Reportable 03/17/19 14:37 Not Reportable 03/17/19 14:37 Not Reportable 03/17/19 14:37 Not Reportable 03/17/19 14:37 Not Reportable 03/17/19 14:37 Not Reportable 03/17/19 14:37 Not Reportable 03/17/19 14:37 Not Reportable 03/17/19 14:37 Not Reportable 03/17/19 14:37 Not Reportable 03/17/19 14:37 Not Reportable 03/17/19 14:37 Not Reportable 03/17/19 14:37 Not Reportable 03/17/19 14:37 Not Reportable 03/17/19 14:37 Not Reportable 03/17/19 14:37 Not Reportable 03/17/19 14:37 Not Reportable 03/17/19 14:37 Acanthocytes (Spur) Not Reportable 03/17/19 14:37 Rouleaux Not Reportable 03/17/19 14:37 Not Reportable 03/17/19 14:37 Not Reportable 03/17/19 14:37 Not Reportable 03/17/19 14:37 Not Reportable 03/17/19 14:37 Hem Pathologist Commnt No 03/17/19 14:37 PT 15.9 Sec. (12.2-14.9) H 03/16/19 17:05 INR 1.30 (0.87-1.13) H 03/16/19 17:05 APTT 31.7 Sec. (24.2-36.6) 03/16/19 17:05 POC ABG pH 7.183 (7.35-7.45) L 03/17/19 17:02 POC ABG pCO2 38.5 (35-45) 03/17/19 17:02 POC ABG pO2 65 (80-105) L 03/17/19 17:02 POC ABG HCO3 14.5 (22-26 mml/L) 03/17/19 17:02 POC ABG Total CO2 16 (23-27mmol/L) 03/17/19 17:02 POC ABG O2 Sat 87 03/17/19 17:02 POC ABG Base Excess -14 ((-2) - (+3)mmol/L) 03/17/19 17:02 80 % 03/17/19 17:02 Sodium 131 mmol/L (137-145) L 03/17/19 03:45 Potassium 4.2 mmol/L (3.6-5.0) 03/17/19 03:45 Chloride 88.9 mmol/L (98-107) L 03/17/19 03:45 Carbon Dioxide 22 mmol/L (22-30) 03/17/19 03:45 24 mmol/L 03/17/19 03:45 BUN 53 mg/dL (9-20) H 03/17/19 03:45 7.1 mg/dL (0.8-1.5) H 03/17/19 03:45 Estimated GFR 10 ml/min 03/17/19 03:45 7 % 03/17/19 03:45 Glucose 78 mg/dL (75-100) 03/17/19 03:45 POC Glucose 98 (70-105) 03/17/19 16:25 Lactic Acid 4.90 mmol/L (0.7-2.0) H* 03/17/19 14:37 Calcium 5.4 mg/dL (8.4-10.2) L* D 03/17/19 03:45 Phosphorus 7.30 mg/dL (2.5-4.5) H 03/17/19 03:45 Magnesium 1.60 mg/dL (1.7-2.3) L 03/17/19 03:45 5.90 mg/dL (0.1-1.2) H 03/17/19 03:45 5.9 mg/dL (0-0.2) H 03/16/19 17:05 0.3 mg/dL 03/16/19 17:05 AST 801 units/L (5-40) H 03/17/19 03:45 ALT 109 units/L (7-56) H 03/17/19 03:45 67 units/L (35-129) 03/17/19 03:45 40970 units/L (55-170) H 03/17/19 07:16 CK-MB (CK-2) 54.3 ng/mL (0.0-4.0) H 03/17/19 07:16 CK-MB (CK-2) Rel Index 0.0 (0-4) 03/17/19 07:16 0.058 ng/mL (0.00-0.029) H 03/17/19 07:16 24.90 mg/dL (0.00-1.30) H 03/17/19 14:37 4.5 g/dL (6.3-8.2) L 03/17/19 03:45 2.0 g/dL (3.9-5) L 03/17/19 03:45 0.8 % 03/17/19 03:45 Triglycerides 395 mg/dL (2-149) H 03/16/19 22:32 Cholesterol 88 mg/dL (50-199) 03/16/19 22:32 10 mg/dL (50-130) L 03/16/19 22:32 7 mg/dL (40-59) L 03/16/19 22:32 12.57 % 03/16/19 22:32 TSH 2.200 mlU/mL (0.270-4.200) 03/16/19 17:05 Free T4 0.72 ng/dL (0.76-1.46) L 03/16/19 17:05 Kathy (Yellow) 03/17/19 16:05 Cloudy (Clear) 03/17/19 16:05 5.0 (5.0-7.0) 03/17/19 16:05 Ur Specific [place] 1.014 (1.003-1.030) 03/17/19 16:05 >500 mg/dL (Negative) 03/17/19 16:05 50 mg/dL (Negative) 03/17/19 16:05 Tr mg/dL (Negative) 03/17/19 16:05 Lg (Negative) 03/17/19 16:05 Neg (Negative) 03/17/19 16:05 Neg (Negative) 03/17/19 16:05 < 2.0 mg/dL (<2.0) 03/17/19 16:05 Ur Leukocyte Esterase Mod (Negative) 03/17/19 16:05 30.0 /HPF (0.0-6.0) H 03/17/19 16:05 11.0 /HPF (0.0-6.0) 03/17/19 16:05 U Epithel Cells (Auto) < 1.0 /HPF (0-13.0) 03/17/19 16:05 Few /HPF 03/17/19 16:05 2+ /HPF (STATISTICAL SECRETARY) 03/17/19 16:05 None seen (None Seen) 03/17/19 16:05 106.6 mg/dL (0.1-20.0) H 03/17/19 16:05 95 mmol/L 03/17/19 16:05 Salicylates < 0.3 mg/dL (2.8-20.0) L 03/16/19 17:05 Presumptive negative 03/17/19 16:05 Presumptive negative 03/17/19 16:05 Acetaminophen < 5.0 ug/mL (10.0-30.0) L 03/16/19 17:05 Ur Barbiturates Screen Presumptive negative 03/17/19 16:05 Ur Phencyclidine Scrn Presumptive negative 03/17/19 16:05 Ur Amphetamines Screen Presumptive negative 03/17/19 16:05 U Benzodiazepines Scrn Presumptive positive 03/17/19 16:05 Presumptive negative 03/17/19 16:05 U Marijuana (THC) Screen Presumptive negative 03/17/19 16:05 Disclamer 03/17/19 16:05 Plasma/Serum Alcohol < 0.01 % (0-0.07) 03/16/19 17:05 HIV 1&2 Antibody Rapid Non react (Non React) 03/17/19 11:52 Non react (Non React) 03/17/19 11:52 Active Medications - Current Medications Current Medications: Generic Name Dose Route Start Last Admin Trade Name Freq PRN Reason Stop Dose Admin Acetaminophen 650 mg 03/16/19 22:22 Tylenol MN Q4H PRN Fever >101 Lipase/Protease/Amylase 1 each 03/17/19 14:[address] 10,500 Unit FEEDTUBE PRN PRN For Clogged Feeding Tube Famotidine 10 mg 03/17/19 14:00 Pepcid PO BID PAOLO Fentanyl 50 mcg 03/16/19 16:06 03/16/19 17:02 Sublimaze IV 50 mcg Q10MIN PRN Administration ANALGESIA Hydrophilic Ointment 1 applic 03/16/19 15:50 Vaseline Lip Therapy TP Q2HR PRN Dry Lips Midazolam HCl 100 mg/ Sodium 100 mls @ 2 mls/hr 03/16/19 16:00 03/17/19 09:18 Chloride IV 2 mg/hr TITR PAOLO 2 mls/hr Titration Protocol 2 MG/HR Fentanyl Citrate 2,000 mcg in 100 mls @ 6.804 mls/hr 03/16/19 17:00 03/17/19 09:19 Fentanyl Drip Premix IV 2 mcg/kg/hr TITR PAOLO 13.608 mls/hr Titration Protocol 1 MCG/KG/HR Vasopressin 20 unit/ Sodium 101 mls @ 9.09 mls/hr 03/16/19 23:45 03/17/19 08:06 Chloride IV 0.03 units/min TITR PAOLO 9.09 mls/hr Administration Protocol 0.03 UNITS/MIN Norepinephrine 8 mg/ Sodium 250 mls @ 3.75 mls/hr 03/17/19 02:00 03/17/19 17:09 Chloride IV 30 mcg/min TITR PAOLO 56.25 mls/hr Administration Protocol 2 MCG/MIN Phenylephrine HCl 100 mg/ 100 mls @ 3 mls/hr 03/17/19 02:30 03/17/19 14:55 Sodium Chloride IV 400 mcg/min TITR PAOLO 24 mls/hr Titration Protocol 50 MCG/MIN Clindamycin HCl 900 mg in 50 mls @ 100 mls/hr 03/17/19 14:00 03/17/19 13:57 Cleocin 900 Mg/50 Ml IV 100 mls/hr Q8HR PAOLO Administration Protocol Ceftriaxone Sodium 2 gm in 100 mls @ 200 mls/hr 03/17/19 12:00 03/17/19 13:36 Rocephin/Ns 2 Gm/100 Ml IV 200 mls/hr Q12HR PAOLO Administration Protocol Doxycycline Hyclate 100 mg/ 250 mls @ 250 mls/hr 03/17/19 12:00 03/17/19 15:00 Sodium Chloride IV 250 mls/hr Q12HR PAOLO Administration Protocol Sodium Bicarbonate 150 meq/ 1,150 mls @ 150 mls/hr 03/17/19 14:00 Dextrose IV 03/20/19 21:39 DIRECT PAOLO Metoprolol Tartrate 5 mg 03/17/19 14:00 Lopressor IV Q8HR PAOLO Midazolam HCl 2 mg 03/16/19 15:50 Versed IV Q10MIN PRN Sedation Multi-Ingred Cream/Lotion/Oil/Oint 1 applic 03/16/19 15:50 Artificial Tears Ophth Oint OU Q4HR PRN Dry Eye(s) Ondansetron HCl 4 mg 03/16/19 22:21 Zofran IV Q8H PRN Nausea And Vomiting Simple Syrup 15 ml 03/17/19 14:45 Simple Syrup FEEDTUBE PRN PRN Hypoglycemia Simple Syrup 30 ml 03/17/19 14:45 Simple Syrup FEEDTUBE PRN PRN Hypoglycemia Sodium Bicarbonate 325 mg 03/17/19 14:45 Sodium Bicarbonate FEEDTUBE PRN PRN For Clogged Feeding Tube Nutrition/Malnutrition Assess - Dietary Evaluation Nutrition/Malnutrition Findings: Nutrition Notes Start: 03/17/19 14:22 Freq: Status: Active Protocol: Document 03/17/19 14:22 RM (Rec: 03/17/19 14:45 RM [email or web address]) Nutrition Notes Need for Assessment generated from: MD Order Initial or Follow up Assessment Current Diagnosis Acute Kidney Injury Other Pertinent Diagnosis Septic shock,Multiple organ failure, encephalopathy Current Diet no diet ordered Labs/Tests Reviewed Pertinent Medications Norepinephrine, Vasopressin Height 6 ft Weight 136.078 kg [place] Body Weight (kg) 80.90 BMI 40.6 Subjective/Other Information Consulted for TF recommendation. Pt on vent. Burn Absent Trauma Absent Minimum of two criteria No #1 Nutrition Diagnosis Inadequate oral intake Etiology on vent As Evidenced by Signs and Symptoms no diet ordered Is patient on ventilator? Yes Is Patient Ambulatory and/or Out of Bed No REE-([facility]-confined to bed) 2743.224 Kcal/Kg value to use for calculation 16 Approximate Energy Requirements Using 2177 kcal/Kg Calculation Used for Recommendations Kcal/kg Additional Notes Protein Needs: 202g (2.5g/kg IBW) Fluid Needs: 1 ml/kcal Protein needs are lower than estimated d/t RUBEN Nutrition Intervention Nutrition Support: Vital 1.2 at 75 ml/hr Water flush of 150 mls q 4 hrs Kcal 2,160 Protein (gm) 135 Fluid (mL) 1,460 Goal #1 TF tolerance Goal #2 Meet at least 80% of calorie and protein needs via TF Anticipated Discharge Needs: Unable to determine at this time Follow-Up By: 03/18/19 Additional Comments Follow for new TF, TF tolerance - Attestation Statement I have reviewed and agreed w/ Malnutrition eval & tx plan: Yes
[2019-03-17] MEDS: SODIUM BICARBONATE 150 MEQ in DEXTROSE 5% IN WATER 1,000 ML IV SCH (18:45)
[2019-03-17] MEDS: ACETAMINOPHEN 650 MG RECT SUPP PR PRN (18:49)
[2019-03-17] MEDS: METOPROLOL TARTRATE 5 MG/5 ML INJ IV SCH ×2 (19:38→21:04)
[2019-03-17] MEDS: FAMOTIDINE 10 MG TAB PO SCH ×2 (21:04→21:50)
--- NOTE | 2019-03-17 23:01 | Consultation ---
PULMONARY CRITICAL CARE NOTE CONSULTING PHYSICIAN: Martha Faria MD REASON FOR CONSULTATION: Severe sepsis with shock, acute hypoxemic respiratory failure. CHIEF COMPLAINT AND HISTORY OF PRESENT ILLNESS: The patient is a 43-year-old male with past medical history significant only for gastroesophageal reflux disease as well as being obese, who presented to the hospital, brought in by a friend with altered mental status. He is reportedly visiting from [place]. He is staying with his friend here in [place]. He had been here about a week. He reportedly had been complaining of feeling ill and some left eye discharge. They also mentioned a possible right axillary abscess. He had been seen in about a couple of days. When he did see him on the morning of presentation, he thought his friend was sleeping. He came back at lunch. He was noticing he was having trouble breathing, was confused, was delirious. He was diaphoretic. He was brought into the ER. When he showed up in the ER, he was found brought initially with stroke symptoms, but did not have any deficits except for some aphasia. He was noted to have an SVT in the 250s, a cardioversion ultimately led to further rhythms before he was stabilized in sinus rhythm. The patient was having difficulty breathing and was intubated for airway protection. He was then found to have a temperature of 105 degrees Fahrenheit. It is unclear if the patient has been exposed to any possible pathogens. No history of tick bites. No history of animal bites. When I stopped by to see him, he was on the mechanical ventilator, sedated, unable to give much of a history. I do not have any history of vomiting or overt aspiration. With regards to the patient's tobacco use/abuse history that is unknown. The above is as much of the history of presentation as I have. PAST MEDICAL HISTORY: Gastroesophageal reflux disease, obesity. PAST SURGICAL HISTORY: Unknown. MEDICATIONS: He was on at the time I stopped by to see him were reviewed, pertinent medications include the following: He received 2 gram IV dose of Rocephin in the Emergency Room. He received 750 mg of Levaquin. He received a dose of systemic steroids, Solu-Medrol. He received Zosyn 2.25 grams IV q. 8 hours. He received vancomycin 2 grams IV x 1 dose. Other medications include fentanyl drip was going at 2 mcg/kg per hour. Versed drip was going at 2 mg per hour. Zofran 4 mg IV q. 8 hours p.r.n. nausea and vomiting. Levophed drip was maxed out at 30 mcg per minute. He was also on Sebastian-Synephrine at 240 mcg per minute and he was also on vasopressin at 0.03 units per minute. He received multiple IV boluses, a total of over about 5 liters since presentation. ALLERGIES: No known drug allergies. DIET: Obese gentleman, acute weight loss or gain history is unknown. FAMILY AND SOCIAL HISTORY: Apparently was in the community prior to coming into the Emergency Room. Alcohol, tobacco, or illicit drug use or abuse history is unknown. Unfortunately, no family to give much of a history. REVIEW OF SYSTEMS: Unobtainable secondary to patient's medical and mental condition. Since he has been here, no gross hematochezia or melena, no gross hematuria, no hematemesis, no bloody tracheal secretions, no witnessed seizures. Review of systems is otherwise as in the body of history above or unobtainable. PHYSICAL EXAMINATION: VITAL SIGNS: On examination at presentation in the Emergency Room, initial temperature was 105 degrees Fahrenheit. Pulse was 195, respiratory rate was 29, blood pressure was 103/30, O2 sats was 88% at presentation. Inspired oxygen concentration at that time was not recorded. When I did stop by to see him, his O2 sats were 94% that was on the assist control mode of ventilation, tidal volumes had been bumped to 550, rate of 30 with a PEEP of 6, and 80% FiO2. GENERAL: He is a middle-aged obese male, normocephalic, atraumatic, on the mechanical ventilator, well sedated without significant patient ventilator dyssynchrony. HEAD, EYES, EARS, NOSE AND THROAT: The patient was icteric, no conjunctival erythema. Oropharynx was moist. Endotracheal tube was taped at the lips around 24 cm. No gross jugular venous distention. He does have a large neck circumference. No thyromegaly. Grossly, there were no palpable lymph nodes in the supraclavicular or submandibular lymph node chains. He has an area in the right axilla that could be a subcutaneous abscess. It is a large, almost the size of an egg. It is hard and the area appears indurated; however, it is not fluctuant and there is no bleeding around it. LUNGS: Auscultation of both lung argueta unremarkable. He has good bilateral breath sounds. No wheezing. HEART: Heart sounds 1 and 2 are heard at the time of my evaluation, regular rate and rhythm without overt rubs or murmurs. ABDOMEN: Soft, full, bowel sounds are positive, nontender, no palpable hepatosplenomegaly. EXTREMITIES: Without overt digital clubbing or cyanosis and no pedal edema. NEUROLOGIC: He was sedated, but had some spontaneous movements to all 4 extremities. Pupils were equal, round, about 3 mm, reactive to light. Extraocular muscle movements could not be assessed. No fasciculations. No spasticity. The skin was of normal turgor without overt cellulitis or rash except as in the area described in the right axillary region. Mood and affect could not be addressed. Psychiatric evaluation could not be done. LABORATORY DATA: From my review are as follows: Admission white cell count 27,000 with hemoglobin of 15.7, hematocrit of 47 and platelet count of 75. No band forms reported. INR was 1.30. Arterial blood gas showed a pH of 7.30, pCO2 of 33, pO2 of 104 that was on 100% of FiO2, ventilator settings at that time. I believe there is a tidal volume was 475, rate was about 24. Serum sodium was 127, potassium 4.3, chloride 88, bicarbonate 17, BUN 49, creatinine 5.8, glucose was 150. Lactic acid level was 5.1. Calcium level was 6.6. Magnesium was 1.1. Total bilirubin was up at 6.2. Direct bilirubin was up at 5.9. AST was 800. ALT was 120. Total CK was 70,000. Troponin is within normal limits. Triglycerides are 395. TSH is within normal limits. Aspirin, Tylenol, alcohol levels are within normal limits. Lactic acid level this morning is 5.5. Arterial blood gas this morning showed a pH of 7.19, pCO2 of 45, pO2 of 65 that was on 80% FiO2. Blood cultures, tracheal aspirate, no growth to date. The patient had sierra CT. CT scan of the chest reported parenchymal disease in both lower lobes suspicious for aspiration pneumonia, moderately dilated small bowel loops, consider ischemia. A CT of the abdomen and pelvis dedicated was also done, it shows moderately dilated small bowel loops, mild associated bowel wall thickening, localized enteritis and small bowel ischemia should be considered. A CT scan of the head was done, possible component of diffuse cerebral edema, but may be due to artifact, otherwise, no acute process. Chest x-ray: ET tube in good position. No overt disease that I can see. In reviewing the CT scan of the chest myself, mediastinal windows, no significant mediastinal adenopathy. He does have dependent atelectasis. Lung windows do suggest some air bronchograms in them. There is motion artifact. No other localized disease. Soft tissue windows do not really reveal the area of the right axilla well. ASSESSMENT: 1. Severe sepsis with shock. 2. Right axilla abscess versus localized pannus/fatty collection. 3. Acute hypoxemic respiratory failure, on mechanical ventilator support. 4. Likely aspiration pneumonia, bilateral. 5. Morbid obesity. 6. Rhabdomyolysis. 7. Acute kidney injury. 8. Leukocytosis. 9. Morbid obesity. 10. Metabolic acidosis. 11. Lactic acidosis. 12. Hypomagnesemia. 13. Elevated serum transaminases/possible shock liver. 14. Acute encephalopathy, toxic metabolic versus anoxic. PLAN: We will keep him on full mechanical ventilatory support in the short term. We have increased the set minute ventilation. I will increase his positive end expiratory pressure to 8 considering his degree of hypotension at this point. As blood pressure improves, we will try and increase his PEEP to recruit more alveoli. Ventilator-associated pneumonia bundle has been introduced including aspiration precautions. Oxygen will be weaned to keep sats greater than or equal to about 90%. Overall, I have a low clinical suspicion for venous thromboembolic events in this gentleman. We will continue to treat him clinically for now. Certainly do not want to expose him to any IV contrast. He was found down; however, I do expect D-dimers to be elevated with all that is going on. I will get bilateral lower extremity Dopplers just to make sure we are not dealing with DVTs that are not being treated considering his hypoxemia. We will continue volume resuscitation, but with a serum creatinine is not improving and azotemia worse, we will have to be careful to avoid massive volume overload. I will keep an eye on his chest x-rays. His chest x-ray from today does not suggest overt pulmonary edema. Enteral nutrition will be the feeding modality of choice. Infectious Disease consultation has been placed. Anti-infectives has been brought to include clindamycin 900 mg IV q. 8 hours, doxycycline 100 mg IV q. 12 hours and we will continue with the vancomycin also. Nephrology evaluation has been sought. I will defer to the reimbursement analyst. An arterial line will be placed at the bedside now. He will be placed on GI prophylaxis as well as DVT prophylaxis. Flu and pneumonia vaccination will be addressed per protocol. A CRP level will be ordered and trended along with lactic acid levels to aid clinical decision making. Thank you very much for the consult Dr. Faria for this pretty sick gentleman. Once he is more stable, I will repeat neuro imaging. He is critically ill on life-sustaining interventions including vasopressors and mechanical ventilatory support at very high risk of . At this time, I spent about 45 minutes of critical care time without overlap and excluding any procedural time that may be necessary. JOB# [id number] THERESE/DEREK WALTER
[2019-03-18] MEDS: NORepinephrine 8 MG in SODIUM CHLORIDE 0.9% 250ML 242 ML IV SCH ×6 (01:30→21:59)
[2019-03-18] MEDS: PHENYLEPHRINE 100 MG in SODIUM CHLORIDE 0.9% 90 ML IV SCH ×5 (01:31→21:28)
--- NOTE | 2019-03-18 03:01 | XRay Report ---
CHEST 1 VIEW 03/18/2019 2:22 AM INDICATION / CLINICAL INFORMATION: follow up respiratory failure. COMPARISON: 03/17/2019. FINDINGS: SUPPORT DEVICES: Stable satisfactory device positioning. HEART / MEDIASTINUM: Stable. LUNGS / PLEURA: Stable low lung volumes with bibasilar subsegmental atelectasis. No pneumothorax. ADDITIONAL FINDINGS: No significant additional findings. IMPRESSION: 1. No adverse change from the prior exam. Signer Name: Stuart Pacheco MD Signed: 03/18/2019 2:56 AM Workstation Name: [email or web address]
[2019-03-18] MEDS: VASOPRESSIN 20 UNIT in SODIUM CHLORIDE 0.9% 100 ML IV SCH ×2 (06:50→17:23)
--- NOTE | 2019-03-18 07:51 | Ultrasound Report ---
US extremity nonvascular RT INDICATION: Right upper extremity swelling.. COMPARISON: None available. FINDINGS: There is subcutaneous edema in the right axilla in the region of swelling without discrete well-defin ed fluid collection or abscess. Signer Name: Stuart Pacheco MD Signed: 03/18/2019 7:47 AM Workstation Name: [id number]
[2019-03-18] MEDS: FAMOTIDINE 10 MG TAB PO SCH ×3 (08:30→21:42)
[2019-03-18] MEDS: PIPERACIL-TAZO 2.25 GM/50 ML 2.25 GM/50 ML BAG IV SCH (08:34)
[2019-03-18] MEDS: MIDAZOLAM 100 MG in SODIUM CHLORIDE 0.9% 80 ML IV SCH (08:36)
--- NOTE | 2019-03-18 09:03 | XRay Report ---
ABDOMEN 03/18/2019 INDICATION / CLINICAL INFORMATION: OG placement. COMPARISON: None available. FINDINGS: The nasogastric tube is located level of the mid stomach. Signer Name: Dano Armstrong MD Signed: 03/18/2019 8:55 AM Workstation Name: [email or web address]
[2019-03-18] MEDS: DOPamine/D5W 800 MG/250 ML 800 MG/250 ML BAG IV SCH ×2 (09:40→18:00)
--- NOTE | 2019-03-18 09:40 | Progress Note ---
Assessment and Plan Assessment and plan: Patient is a 43 year old male with PMH of GERD, Obesity, and per family has been homeless on the streets in [place] admitted to our facility following arrival via private vehicle with AMS x 2 Days per friend. On arrival was intubated in the ED noted to have rectal temp of 105 AND SVT with rate in the 250 requiring 2 shocks delivery * Initial rhythm appeared to be SVT * Per friend patient complaining of feeling ill and has some left eye discharge, cold, clammy and diaphrietic by the time arrived to the hospital. Also mentions a possibility of a right axilla abscess. The and went to stay with his girlfriend the last 2 days and this morning when he saw the patient he was ill-appearing but sleeping. * Currently on 4 pressors * Start on Elizabeth culture including coverage for possible Meningitis CHEST 1 VIEW . IMPRESSION: 1. Endotracheal tube in good position. 2. Nasogastric tube doubled back on itself at the level of the [place] with the tip not seen. The tube will need to be removed/reposition. CT of the chest, abdomen and pelvis without contrast . IMPRESSION: 1. Parenchymal disease in both lower lobes posteromedially may be related to aspiration pneumonia. 2. Moderately dilated small bowel bowel loops in the mid to upper abdomen anteriorly with mild associated bowel wall thickening. Localized enteritis and small bowel ischemia should be considered. CT head/brain wo contrast. IMPRESSION: 1. Some component of diffuse cerebral edema cannot be excluded. However, this finding may be artifactual secondary to patient positioning. Close follow-up is recommended. No definitive signs of herniation or large territorial infarct at this time. 2. Otherwise, no focal mass, hemorrhage, hydrocephalus, or large infarct seen. Multi-Organ failure Septic Shock Severe Sepsis Acute Metabolic Encephalopathy Acute Respiratory Failure with Hypoxia SVT with Polymorphic Vtach Rhabdomyolysis Severe Metabolic Acidosis Acute Cystitis Acute Kidney Failure secondary to ATN ANURIC Thrombocytopenia, Hypomagnesemia, Suspect Aspiration pneumonia right axillary cellulitis Enteritis Hypoglycemia-IMPROVED Plan: Continue supportive customer care specialist impressions noted and appreciated wean pressors as needed Continue bicarb Holding further fluids due to poor urine output, Vascular consult to eval for possible Vascath placement Await ECHO Aspiration Precautions and VAP bundle Await Echo Replace Electrolyte Ultrasound to further evaluate right axilla to r/o abscess vs LAD Monitor Blood glocus prevent hypoglycemia UDS noted, only shows benzos, ?from here or outside. per family no hx of drugs Per Nephrology * Its risky and he wouldn't tolerate hemodialysis at this point. * Continue maintenance IV fluids. Monitor CK level Awaiting labs With four pressors will not transfuse Patients BP still too fragile to attempt any move, or even change to Bariatric bed DVT/GI prophy Poor prognosis Family informed and updated of clinical condition The high probability of a clinically significant, sudden or life threatening deterioration of the [multipe organs] system(s) required my full and direct attention, intervention and personal management. The aggregate critical care time was [75] minutes. This time is in addition to time spent performing reported procedures but includes the following: [x] Data Review and interpretation [x] Patient assessment and monitoring of vital signs [x] Documentation [x] Medication orders and management History Interval history: Patient seen and examined, remains on full MVS. more lethargic today, Still gravely sick on multiple Pressors. Brother and childhood friend at bedside. Still no significant Urine output per nursing staff. pateint is not tolerating any movement at this time Hospitalist Physical - Physical exam Narrative exam: General appearance: Present: on full mechanical ventilation support - EENT Eyes: Present: PERRL, EOM intact, conjunctival with mild erythema ENT: other (on mechanical ventilation with AMS unable to access) - Neck Neck: Present: supple - Respiratory Respiratory effort: other (on full MVS) Respiratory: bilateral: diminished - Cardiovascular Rhythm: regular Heart Sounds: Present: S1 & S2. Absent: gallop, systolic murmur, diastolic murmur, rub - Extremities Extremities: no ischemia, pulses intact, pulses symmetrical, normal temperature Extremity abnormal: edema (trace) Peripheral Pulses: within normal limits - Abdominal General gastrointestinal: soft, non-tender, non-distended, normal bowel sounds - Integumentary Integumentary: Present: warm, erythema (right axialla with soft tissue swelling) - Psychiatric Psychiatric: other (ams) - Neurologic Neurologic: other (on mechanical ventilation with ams) - Allied Health Allied health notes reviewed: nursing - Constitutional Vitals: Temp Pulse Resp BP Pulse Ox 98.4 F 103 H 16 57/16 100 03/18/19 08:00 03/18/19 09:01 03/18/19 09:01 03/18/19 05:11 03/18/19 09:01 General appearance: Present: severe distress Results - Labs CBC & Chem 7: 03/17/19 14:37 03/17/19 03:45 Labs: Laboratory Last Values WBC 29.3 K/mm3 (4.5-11.0) H 03/17/19 14:37 RBC 4.93 M/mm3 (3.65-5.03) 03/17/19 14:37 Hgb 13.9 gm/dl (11.8-15.2) 03/17/19 14:37 Hct 43.1 % (35.5-45.6) 03/17/19 14:37 MCV 87 fl (84-94) 03/17/19 14:37 MCH 28 pg (28-32) 03/17/19 14:37 MCHC 32 % (32-34) 03/17/19 14:37 RDW 15.8 % (13.2-15.2) H 03/17/19 14:37 Plt Count 45 K/mm3 (140-440) L 03/17/19 14:37 Add Manual Diff Complete 03/17/19 14:37 Total Counted 100 03/17/19 14:37 Seg Neutrophils % Tree Topper 03/17/19 14:37 Seg Neuts % (Manual) 81.0 % (40.0-70.0) H 03/17/19 14:37 1.0 % 03/17/19 14:37 1.0 % (13.4-35.0) L 03/17/19 14:37 Reactive Lymphs % (Man) 1.0 % 03/17/19 14:37 15.0 % (0.0-7.3) H 03/17/19 14:37 1.0 % (0.0-4.3) 03/17/19 14:37 0 % (0.0-1.8) 03/17/19 14:37 0 % 03/17/19 14:37 0 % 03/17/19 14:37 0 % 03/17/19 14:37 0 % 03/17/19 14:37 Nucleated RBC % Not Reportable 03/17/19 14:37 Seg Neutrophils # Man 23.7 K/mm3 (1.8-7.7) H 03/17/19 14:37 Band Neutrophils # 0.3 K/mm3 03/17/19 14:37 0.3 K/mm3 (1.2-5.4) L 03/17/19 14:37 Abs React Lymphs (Man) 0.3 K/mm3 03/17/19 14:37 4.4 K/mm3 (0.0-0.8) H 03/17/19 14:37 0.3 K/mm3 (0.0-0.4) 03/17/19 14:37 0.0 K/mm3 (0.0-0.1) 03/17/19 14:37 0.0 K/mm3 03/17/19 14:37 0.0 K/mm3 03/17/19 14:37 0.0 K/mm3 03/17/19 14:37 Blast Cells # 0.0 K/mm3 03/17/19 14:37 WBC Morphology Not Reportable 03/17/19 14:37 Hypersegmented Neuts Not Reportable 03/17/19 14:37 Hyposegmented Neuts Not Reportable 03/17/19 14:37 Hypogranular Neuts Not Reportable 03/17/19 14:37 Not Reportable 03/17/19 14:37 Not Reportable 03/17/19 14:37 Not Reportable 03/17/19 14:37 Not Reportable 03/17/19 14:37 Not Reportable 03/17/19 14:37 Not Reportable 03/17/19 14:37 Consistent w auto 03/17/19 14:37 Not Reportable 03/17/19 14:37 Plt Clumps, EDTA Not Reportable 03/17/19 14:37 Not Reportable 03/17/19 14:37 Not Reportable 03/17/19 14:37 Not Reportable 03/17/19 14:37 Plt Morphology Comment Not Reportable 03/17/19 14:37 RBC Morphology Normal 03/17/19 14:37 Dimorphic RBCs Not Reportable 03/17/19 14:37 Not Reportable 03/17/19 14:37 Not Reportable 03/17/19 14:37 Not Reportable 03/17/19 14:37 Not Reportable 03/17/19 14:37 Not Reportable 03/17/19 14:37 Not Reportable 03/17/19 14:37 Not Reportable 03/17/19 14:37 Not Reportable 03/17/19 14:37 Not Reportable 03/17/19 14:37 Not Reportable 03/17/19 14:37 Not Reportable 03/17/19 14:37 Not Reportable 03/17/19 14:37 Not Reportable 03/17/19 14:37 Not Reportable 03/17/19 14:37 Not Reportable 03/17/19 14:37 Not Reportable 03/17/19 14:37 Not Reportable 03/17/19 14:37 Not Reportable 03/17/19 14:37 Not Reportable 03/17/19 14:37 Acanthocytes (Spur) Not Reportable 03/17/19 14:37 Rouleaux Not Reportable 03/17/19 14:37 Not Reportable 03/17/19 14:37 Not Reportable 03/17/19 14:37 Not Reportable 03/17/19 14:37 Not Reportable 03/17/19 14:37 Hem Pathologist Commnt No 03/17/19 14:37 PT 15.9 Sec. (12.2-14.9) H 03/16/19 17:05 INR 1.30 (0.87-1.13) H 03/16/19 17:05 APTT 31.7 Sec. (24.2-36.6) 03/16/19 17:05 POC ABG pH 7.257 (7.35-7.45) L 03/18/19 05:12 POC ABG pCO2 31.6 (35-45) L 03/18/19 05:12 POC ABG pO2 69 (80-105) L 03/18/19 05:12 POC ABG HCO3 14.0 (22-26 mml/L) 03/18/19 05:12 POC ABG Total CO2 15 (23-27mmol/L) 03/18/19 05:12 POC ABG O2 Sat 91 03/18/19 05:12 POC ABG Base Excess -13 ((-2) - (+3)mmol/L) 03/18/19 05:12 100 % 03/18/19 05:12 Sodium 131 mmol/L (137-145) L 03/17/19 03:45 Potassium 4.2 mmol/L (3.6-5.0) 03/17/19 03:45 Chloride 88.9 mmol/L (98-107) L 03/17/19 03:45 Carbon Dioxide 22 mmol/L (22-30) 03/17/19 03:45 24 mmol/L 03/17/19 03:45 BUN 53 mg/dL (9-20) H 03/17/19 03:45 7.1 mg/dL (0.8-1.5) H 03/17/19 03:45 Estimated GFR 10 ml/min 03/17/19 03:45 7 % 03/17/19 03:45 Glucose 78 mg/dL (75-100) 03/17/19 03:45 POC Glucose 141 (70-105) H 03/18/19 05:53 Lactic Acid 5.00 mmol/L (0.7-2.0) H* 03/18/19 06:57 Calcium 5.4 mg/dL (8.4-10.2) L* D 03/17/19 03:45 Phosphorus 7.30 mg/dL (2.5-4.5) H 03/17/19 03:45 Magnesium 1.60 mg/dL (1.7-2.3) L 03/17/19 03:45 5.90 mg/dL (0.1-1.2) H 03/17/19 03:45 5.9 mg/dL (0-0.2) H 03/16/19 17:05 0.3 mg/dL 03/16/19 17:05 AST 801 units/L (5-40) H 03/17/19 03:45 ALT 109 units/L (7-56) H 03/17/19 03:45 67 units/L (35-129) 03/17/19 03:45 67565 units/L (55-170) H 03/17/19 07:16 CK-MB (CK-2) 54.3 ng/mL (0.0-4.0) H 03/17/19 07:16 CK-MB (CK-2) Rel Index 0.0 (0-4) 03/17/19 07:16 0.058 ng/mL (0.00-0.029) H 03/17/19 07:16 24.90 mg/dL (0.00-1.30) H 03/17/19 14:37 4.5 g/dL (6.3-8.2) L 03/17/19 03:45 2.0 g/dL (3.9-5) L 03/17/19 03:45 0.8 % 03/17/19 03:45 Triglycerides 395 mg/dL (2-149) H 03/16/19 22:32 Cholesterol 88 mg/dL (50-199) 03/16/19 22:32 10 mg/dL (50-130) L 03/16/19 22:32 7 mg/dL (40-59) L 03/16/19 22:32 12.57 % 03/16/19 22:32 TSH 2.200 mlU/mL (0.270-4.200) 03/16/19 17:05 Free T4 0.72 ng/dL (0.76-1.46) L 03/16/19 17:05 Kathy (Yellow) 03/17/19 16:05 Cloudy (Clear) 03/17/19 16:05 5.0 (5.0-7.0) 03/17/19 16:05 Ur Specific [place] 1.014 (1.003-1.030) 03/17/19 16:05 >500 mg/dL (Negative) 03/17/19 16:05 50 mg/dL (Negative) 03/17/19 16:05 Tr mg/dL (Negative) 03/17/19 16:05 Lg (Negative) 03/17/19 16:05 Neg (Negative) 03/17/19 16:05 Neg (Negative) 03/17/19 16:05 < 2.0 mg/dL (<2.0) 03/17/19 16:05 Ur Leukocyte Esterase Mod (Negative) 03/17/19 16:05 30.0 /HPF (0.0-6.0) H 03/17/19 16:05 11.0 /HPF (0.0-6.0) 03/17/19 16:05 U Epithel Cells (Auto) < 1.0 /HPF (0-13.0) 03/17/19 16:05 Few /HPF 03/17/19 16:05 2+ /HPF (ONLINE JOURNALIST) 03/17/19 16:05 None seen (None Seen) 03/17/19 16:05 106.6 mg/dL (0.1-20.0) H 03/17/19 16:05 95 mmol/L 03/17/19 16:05 Salicylates < 0.3 mg/dL (2.8-20.0) L 03/16/19 17:05 Presumptive negative 03/17/19 16:05 Presumptive negative 03/17/19 16:05 Acetaminophen < 5.0 ug/mL (10.0-30.0) L 03/16/19 17:05 Ur Barbiturates Screen Presumptive negative 03/17/19 16:05 Ur Phencyclidine Scrn Presumptive negative 03/17/19 16:05 Ur Amphetamines Screen Presumptive negative 03/17/19 16:05 U Benzodiazepines Scrn Presumptive positive 03/17/19 16:05 Presumptive negative 03/17/19 16:05 U Marijuana (THC) Screen Presumptive negative 03/17/19 16:05 Disclamer 03/17/19 16:05 Plasma/Serum Alcohol < 0.01 % (0-0.07) 03/16/19 17:05 HIV 1&2 Antibody Rapid Non react (Non React) 03/17/19 11:52 Non react (Non React) 03/17/19 11:52 Influenza A (Rapid) Negative (Negative) 03/17/19 17:00 Influenza B (Rapid) Negative (Negative) 03/17/19 17:00 Group A Strep Rapid Negative (Negative) 03/17/19 17:00 Active Medications - Current Medications Current Medications: Generic Name Dose Route Start Last Admin Trade Name Freq PRN Reason Stop Dose Admin Acetaminophen 650 mg 03/16/19 22:22 03/17/19 18:49 Tylenol ME 650 mg Q4H PRN Administration Fever >101 Lipase/Protease/Amylase 1 each 03/17/19 14:[address] 10,500 Unit FEEDTUBE PRN PRN For Clogged Feeding Tube Famotidine 10 mg 03/17/19 14:00 03/18/19 08:30 Pepcid PO Not Given BID PAOLO Fentanyl 50 mcg 03/16/19 16:06 03/16/19 17:02 Sublimaze IV 50 mcg Q10MIN PRN Administration ANALGESIA Hydrophilic Ointment 1 applic 03/16/19 15:50 Vaseline Lip Therapy TP Q2HR PRN Dry Lips Midazolam HCl 100 mg/ Sodium 100 mls @ 2 mls/hr 03/16/19 16:00 03/18/19 08:36 Chloride IV 3 mg/hr TITR PAOLO 3 mls/hr Administration Protocol 2 MG/HR Fentanyl Citrate 2,000 mcg in 100 mls @ 6.804 mls/hr 03/16/19 17:00 03/18/19 06:28 Fentanyl Drip Premix IV Infused TITR PAOLO Titration Protocol 1 MCG/KG/HR Vasopressin 20 unit/ Sodium 101 mls @ 9.09 mls/hr 03/16/19 23:45 03/18/19 06:50 Chloride IV 0.03 units/min TITR PAOLO 9.09 mls/hr Administration Protocol 0.03 UNITS/MIN Norepinephrine 8 mg/ Sodium 250 mls @ 3.75 mls/hr 03/17/19 02:00 03/18/19 06:08 Chloride IV 30 mcg/min TITR PAOLO 56.25 mls/hr Administration Protocol 2 MCG/MIN Phenylephrine HCl 100 mg/ 100 mls @ 3 mls/hr 03/17/19 02:30 03/18/19 06:10 Sodium Chloride IV 400 mcg/min TITR PAOLO 24 mls/hr Administration Protocol 50 MCG/MIN Clindamycin HCl 900 mg in 50 mls @ 100 mls/hr 03/17/19 14:00 03/18/19 06:15 Cleocin 900 Mg/50 Ml IV 100 mls/hr Q8HR PAOLO Administration Protocol Ceftriaxone Sodium 2 gm in 100 mls @ 200 mls/hr 03/17/19 12:00 03/17/19 21:06 Rocephin/Ns 2 Gm/100 Ml IV 200 mls/hr Q12HR PAOLO Administration Protocol Doxycycline Hyclate 100 mg/ 250 mls @ 250 mls/hr 03/17/19 12:00 03/17/19 21:06 Sodium Chloride IV 250 mls/hr Q12HR PAOLO Administration Protocol Sodium Bicarbonate 150 meq/ 1,150 mls @ 150 mls/hr 03/17/19 14:00 03/17/19 18:45 Dextrose IV 03/20/19 21:39 150 mls/hr DIRECT PAOLO Administration Dopamine HCl/Dextrose 800 mg in 250 mls @ 5.103 mls/hr 03/17/19 23:00 Intropin Drip 800 Mg/D5w 250 Ml IV TITR PAOLO Protocol 2 MCG/KG/MIN Midazolam HCl 2 mg 03/16/19 15:50 Versed IV Q10MIN PRN Sedation Multi-Ingred Cream/Lotion/Oil/Oint 1 applic 03/16/19 15:50 Artificial Tears Ophth Oint OU Q4HR PRN Dry Eye(s) Ondansetron HCl 4 mg 03/16/19 22:21 Zofran IV Q8H PRN Nausea And Vomiting Simple Syrup 15 ml 03/17/19 14:45 Simple Syrup FEEDTUBE PRN PRN Hypoglycemia Simple Syrup 30 ml 03/17/19 14:45 Simple Syrup FEEDTUBE PRN PRN Hypoglycemia Sodium Bicarbonate 325 mg 03/17/19 14:45 Sodium Bicarbonate FEEDTUBE PRN PRN For Clogged Feeding Tube Nutrition/Malnutrition Assess - Dietary Evaluation Nutrition/Malnutrition Findings: Nutrition Notes Start: 03/17/19 14:2 2 Freq: Status: Active Protocol: Document 03/17/19 14:22 RM (Rec: 03/17/19 14:45 RM [id number]) Nutrition Notes Need for Assessment generated from: MD Order Initial or Follow up Assessment Current Diagnosis Acute Kidney Injury Other Pertinent Diagnosis Septic shock,Multiple organ failure, encephalopathy Current Diet no diet ordered Labs/Tests Reviewed Pertinent Medications Norepinephrine, Vasopressin Height 6 ft Weight 136.078 kg [place] Body Weight (kg) 80.90 BMI 40.6 Subjective/Other Information Consulted for TF recommendation. Pt on vent. Burn Absent Trauma Absent Minimum of two criteria No #1 Nutrition Diagnosis Inadequate oral intake Etiology on vent As Evidenced by Signs and Symptoms no diet ordered Is patient on ventilator? Yes Is Patient Ambulatory and/or Out of Bed No REE-([facility]-confined to bed) 2743.224 Kcal/Kg value to use for calculation 16 Approximate Energy Requirements Using 2177 kcal/Kg Calculation Used for Recommendations Kcal/kg Additional Notes Protein Needs: 202g (2.5g/kg IBW) Fluid Needs: 1 ml/kcal Protein needs are lower than estimated d/t RUBEN Nutrition Intervention Nutrition Support: Vital 1.2 at 75 ml/hr Water flush of 150 mls q 4 hrs Kcal 2,160 Protein (gm) 135 Fluid (mL) 1,460 Goal #1 TF tolerance Goal #2 Meet at least 80% of calorie and protein needs via TF Anticipated Discharge Needs: Unable to determine at this time Follow-Up By: 03/18/19 Additional Comments Follow for new TF, TF tolerance
[2019-03-18 09:41] LABS: Calcium 4.1 mg/dL (8.4-10.2)
[2019-03-18 09:42] LABS: Albumin 1.8 g/dL (3.9-5)
[2019-03-18 09:47] LABS: Hematocrit 41.3 % (35.5-45.6); Hemoglobin 13.7 gm/dl (11.8-15.2); Mean Corpuscular HGB Conc 33 % (32-34); Mean Corpuscular Volume 85 fl (84-94); Red Blood Count 4.85 M/mm3 (3.65-5.03); Red Cell Distribution Width 15.5 % (13.2-15.2)
[2019-03-18] MEDS ORDERED: CALCIUM CHLORIDE 1,000 MG in SODIUM CHLORIDE 0.9% 100 ML IV ONE (10:00)
[2019-03-18 10:29] LABS: Platelet Count 35 K/mm3 (140-440)
[2019-03-18] MEDS: DOXYCYCLINE HYCLATE 100 MG in SODIUM CHLORIDE 0.9% 250ML 250 ML IV SCH ×2 (11:00→21:42)
--- NOTE | 2019-03-18 11:28 | Progress Note ---
Assessment and Plan 1. Acute kidney injury: Vasomotor RUBEN in the setting of shock / volume depletion / Rhabdo. Baseline renal function is unknown. Renal function continue to decline in the setting of shock. CT abdomen was negative for obstructive nephropathy. Monitor renal function. Renal prognosis is guarded. Avoid nephrotoxic agents. Meds dosage based on GFR. Associated worsening metabolic acidosis and hyperkalemia. Patient remain critically ill and will benefit from hemodialysis if he tolerates. Discussed with brother along with and regarding the indications, risks and benefits of hemodialysis. Explained specifically about the risks of worsening hypotension, arrhythmias, Cardiac arrest, etc. His brother voiced understanding and gave consent to proceed with hemodialysis. 2. FEN: Hyperkalemia, HD today. Hyponatremia, monitor. Metabolic acidosis, 2/2 Lactic acidosis. On bicarbonate drip. Monitor lytes. 3. Septic shock: On broad spectrum Abx. Seen by ID. Currently on Midodrine and 4 different IV pressors. Follow cultures. 4. Rhabdomyolysis: Continue IV fluids. Follow CK level. 5. SVT / V.tach: Followed by Cards. 6. Respiratory failure: On vent. 7. Multiple organ failure. 8. Elevated transaminases. 9. Encephalopathy. Subjective Date of service: 03/18/19 Interval history: Patient was seen and examined at the bedside. Remain on the vent. Objective - Vital Signs Vital signs: Vital Signs - 12hr 03/17/19 03/17/19 03/17/19 23:31 23:41 23:44 Temperature 100.8 F H Pulse Rate 114 H 113 H Pulse Rate [ Right Dorsalis Pedis] Respiratory 31 H 30 H Rate Blood Pressure 75/21 75/21 O2 Sat by Pulse 94 94 Oximetry 03/17/19 03/18/19 03/18/19 23:51 00:00 00:01 Temperature Pulse Rate 112 H 112 H 112 H Pulse Rate [ 111 H Right Dorsalis Pedis] Respiratory 30 H 30 H 30 H Rate Blood Pressure 75/21 75/21 O2 Sat by Pulse 95 95 94 Oximetry 03/18/19 03/18/19 03/18/19 00:10 00:11 00:21 Temperature Pulse Rate 104 H 112 H 111 H Pulse Rate [ Right Dorsalis Pedis] Respiratory 31 H 30 H Rate Blood Pressure 75/21 75/21 O2 Sat by Pulse 98 95 95 Oximetry 03/18/19 03/18/19 03/18/19 00:31 00:41 00:51 Temperature Pulse Rate 109 H 109 H 109 H Pulse Rate [ Right Dorsalis Pedis] Respiratory 29 H 31 H 22 Rate Blood Pressure 75/21 75/21 75/21 O2 Sat by Pulse 94 94 93 Oximetry 03/18/19 03/18/19 03/18/19 01:01 01:11 01:21 Temperature Pulse Rate 109 H 108 H 107 H Pulse Rate [ Right Dorsalis Pedis] Respiratory 22 22 22 Rate Blood Pressure 75/21 75/21 75/21 O2 Sat by Pulse 93 93 94 Oximetry 03/18/19 03/18/19 03/18/19 01:31 01:41 01:51 Temperature Pulse Rate 107 H 107 H 107 H Pulse Rate [ Right Dorsalis Pedis] Respiratory 22 18 17 Rate Blood Pressure 75/21 93/58 93/58 O2 Sat by Pulse 92 94 94 Oximetry 03/18/19 03/18/19 03/18/19 02:01 02:11 02:21 Temperature Pulse Rate 106 H 105 H 103 H Pulse Rate [ Right Dorsalis Pedis] Respiratory 17 17 18 Rate Blood Pressure 93/58 93/58 93/58 O2 Sat by Pulse 95 94 90 Oximetry 03/18/19 03/18/19 03/18/19 02:31 02:41 02:51 Temperature Pulse Rate 101 H 103 H 103 H Pulse Rate [ Right Dorsalis Pedis] Respiratory 31 H 15 33 H Rate Blood Pressure 93/58 93/58 93/58 O2 Sat by Pulse 84 82 L 89 Oximetry 03/18/19 03/18/19 03/18/19 03:01 03:11 03:21 Temperature Pulse Rate 103 H 104 H 105 H Pulse Rate [ Right Dorsalis Pedis] Respiratory 32 H 30 H 31 H Rate Blood Pressure 93/58 93/58 93/58 O2 Sat by Pulse 87 90 95 Oximetry 03/18/19 03/18/19 03/18/19 03:31 03:41 03:51 Temperature Pulse Rate 105 H 105 H 103 H Pulse Rate [ Right Dorsalis Pedis] Respiratory 30 H 18 20 Rate Blood Pressure 93/58 93/58 57/16 O2 Sat by Pulse 96 97 97 Oximetry 03/18/19 03/18/19 03/18/19 04:00 04:01 04:11 Temperature Pulse Rate 104 H 104 H 104 H Pulse Rate [ 104 H Right Dorsalis Pedis] Respiratory 30 H 25 H 25 H Rate Blood Pressure 57/16 57/16 O2 Sat by Pulse 95 98 98 Oximetry 03/18/19 03/18/19 03/18/19 04:21 04:28 04:31 Temperature 98.3 F Pulse Rate 104 H 104 H Pulse Rate [ Right Dorsalis Pedis] Respiratory 32 H 23 Rate Blood Pressure 57/16 57/16 O2 Sat by Pulse 98 98 Oximetry 03/18/19 03/18/19 03/18/19 04:41 04:49 04:51 Temperature Pulse Rate 104 H 104 H 105 H Pulse Rate [ Right Dorsalis Pedis] Respiratory 23 25 H Rate Blood Pressure 57/16 57/16 O2 Sat by Pulse 98 98 98 Oximetry 03/18/19 03/18/19 03/18/19 05:01 05:11 05:20 Temperature Pulse Rate 105 H 103 H 105 H Pulse Rate [ Right Dorsalis Pedis] Respiratory 25 H 31 H 28 H Rate Blood Pressure 57/16 57/16 O2 Sat by Pulse 99 98 98 Oximetry 03/18/19 03/18/19 03/18/19 05:31 05:41 05:52 Temperature Pulse Rate 103 H 104 H 103 H Pulse Rate [ Right Dorsalis Pedis] Respiratory 31 H 33 H 30 H Rate Blood Pressure O2 Sat by Pulse 99 99 99 Oximetry 03/18/19 03/18/19 03/18/19 06:00 06:01 06:11 Temperature Pulse Rate 100 H 102 H Pulse Rate [ 100 H Right Dorsalis Pedis] Respiratory 30 H 30 H 31 H Rate Blood Pressure O2 Sat by Pulse 95 99 100 Oximetry 03/18/19 03/18/19 03/18/19 06:21 06:31 06:41 Temperature Pulse Rate 104 H 103 H 99 H Pulse Rate [ Right Dorsalis Pedis] Respiratory 32 H 31 H 23 Rate Blood Pressure O2 Sat by Pulse 100 100 100 Oximetry 03/18/19 03/18/19 03/18/19 06:51 07:01 07:11 Temperature Pulse Rate 100 H 103 H 102 H Pulse Rate [ Right Dorsalis Pedis] Respiratory 19 19 18 Rate Blood Pressure O2 Sat by Pulse 99 99 100 Oximetry 03/18/19 03/18/19 03/18/19 07:21 07:31 07:40 Temperature Pulse Rate 102 H 103 H 100 H Pulse Rate [ Right Dorsalis Pedis] Respiratory 18 34 H 20 Rate Blood Pressure O2 Sat by Pulse 99 99 99 Oximetry 03/18/19 03/18/19 03/18/19 07:50 08:00 08:03 Temperature 98.4 F Pulse Rate 102 H 101 H 97 H Pulse Rate [ Right Dorsalis Pedis] Respiratory 25 H 17 Rate Blood Pressure O2 Sat by Pulse 99 100 98 Oximetry 03/18/19 03/18/19 03/18/19 08:11 08:20 08:31 Temperature Pulse Rate 104 H 103 H 103 H Pulse Rate [ Right Dorsalis Pedis] Respiratory 28 H 22 19 Rate Blood Pressure O2 Sat by Pulse 99 99 100 Oximetry 03/18/19 03/18/19 03/18/19 08:41 08:51 09:01 Temperature Pulse Rate 102 H 103 H 103 H Pulse Rate [ Right Dorsalis Pedis] Respiratory 16 17 16 Rate Blood Pressure O2 Sat by Pulse 100 100 100 Oximetry 03/18/19 03/18/19 03/18/19 09:10 09:21 09:31 Temperature Pulse Rate 104 H 102 H 104 H Pulse Rate [ Right Dorsalis Pedis] Respiratory 17 21 17 Rate Blood Pressure O2 Sat by Pulse 100 100 100 Oximetry 03/18/19 03/18/19 03/18/19 09:41 09:51 11:15 Temperature Pulse Rate 104 H 104 H 97 H Pulse Rate [ Right Dorsalis Pedis] Respiratory 19 18 Rate Blood Pressure O2 Sat by Pulse 100 99 96 Oximetry - General Appearance General appearance: well-developed, well-nourished, appears stated age, obese, intubated, other (on vent, R IJ temp catheter) EENT: ATNC Neck: supple Respiratory: Present: Clear to Ascultation, Decreased Breath Sounds (bilateral) Cardiology: regular, S1S2 Gastrointestinal: no tenderness, no distended, obese Integumentary: no rash, warm and dry Neurologic: other (not responding) Musculoskeletal: other (trace LE edema noted) - Lab 03/18/19 08:40 03/18/19 08:40 Most recent lab results Calcium 4.1 mg/dL (8.4-10.2) L* D 03/18/19 08:40 Phosphorus 7.30 mg/dL (2.5-4.5) H 03/17/19 03:45 Magnesium 2.40 mg/dL (1.7-2.3) H 03/18/19 08:40 106.6 mg/dL (0.1-20.0) H 03/17/19 16:05 95 mmol/L 03/17/19 16:05 Medications & Allergies - Medications Allergies/Adverse Reactions: Allergies No Known Allergies Allergy (Unverified 03/16/19 17:17) Active Medications: Generic Name Dose Route Start Last Admin Trade Name Freq PRN Reason Stop Dose Admin Acetaminophen 650 mg 03/16/19 22:22 03/17/19 18:49 Tylenol FL 650 mg Q4H PRN Administration Fever >101 Lipase/Protease/Amylase 1 each 03/17/19 14:[address] 10,500 Unit FEEDTUBE PRN PRN For Clogged Feeding Tube Famotidine 10 mg 03/17/19 14:00 03/18/19 08:30 Pepcid PO Not Given BID PAOLO Fentanyl 50 mcg 03/16/19 16:06 03/16/19 17:02 Sublimaze IV 50 mcg Q10MIN PRN Administration ANALGESIA Hydrophilic Ointment 1 applic 03/16/19 15:50 Vaseline Lip Therapy TP Q2HR PRN Dry Lips Midazolam HCl 100 mg/ Sodium 100 mls @ 2 mls/hr 03/16/19 16:00 03/18/19 08:36 Chloride IV 3 mg/hr TITR PAOLO 3 mls/hr Administration Protocol 2 MG/HR Fentanyl Citrate 2,000 mcg in 100 mls @ 6.804 mls/hr 03/16/19 17:00 03/18/19 06:28 Fentanyl Drip Premix IV Infused TITR PAOLO Titration Protocol 1 MCG/KG/HR Vasopressin 20 unit/ Sodium 101 mls @ 9.09 mls/hr 03/16/19 23:45 03/18/19 06:50 Chloride IV 0.03 units/min TITR PAOLO 9.09 mls/hr Administration Protocol 0.03 UNITS/MIN Norepinephrine 8 mg/ Sodium 250 mls @ 3.75 mls/hr 03/17/19 02:00 03/18/19 06:08 Chloride IV 30 mcg/min TITR PAOLO 56.25 mls/hr Administration Protocol 2 MCG/MIN Phenylephrine HCl 100 mg/ 100 mls @ 3 mls/hr 03/17/19 02:30 03/18/19 06:10 Sodium Chloride IV 400 mcg/min TITR PAOLO 24 mls/hr Administration Protocol 50 MCG/MIN Clindamycin HCl 900 mg in 50 mls @ 100 mls/hr 03/17/19 14:00 03/18/19 06:15 Cleocin 900 Mg/50 Ml IV 100 mls/hr Q8HR PAOLO Administration Protocol Ceftriaxone Sodium 2 gm in 100 mls @ 200 mls/hr 03/17/19 12:00 03/17/19 21:06 Rocephin/Ns 2 Gm/100 Ml IV 200 mls/hr Q12HR PAOLO Administration Protocol Doxycycline Hyclate 100 mg/ 250 mls @ 250 mls/hr 03/17/19 12:00 03/17/19 21:06 Sodium Chloride IV 250 mls/hr Q12HR PAOLO Administration Protocol Sodium Bicarbonate 150 meq/ 1,150 mls @ 150 mls/hr 03/17/19 14:00 03/17/19 18:45 Dextrose IV 03/20/19 21:39 150 mls/hr DIRECT PAOLO Administration Dopamine HCl/Dextrose 800 mg in 250 mls @ 5.103 mls/hr 03/17/19 23:00 Intropin Drip 800 Mg/D5w 250 Ml IV TITR PAOLO Protocol 2 MCG/KG/MIN Midazolam HCl 2 mg 03/16/19 15:50 Versed IV Q10MIN PRN Sedation Multi-Ingred Cream/Lotion/Oil/Oint 1 applic 03/16/19 15:50 Artificial Tears Ophth Oint OU Q4HR PRN Dry Eye(s) Ondansetron HCl 4 mg 03/16/19 22:21 Zofran IV Q8H PRN Nausea And Vomiting Simple Syrup 15 ml 03/17/19 14:45 Simple Syrup FEEDTUBE PRN PRN Hypoglycemia Simple Syrup 30 ml 03/17/19 14:45 Simple Syrup FEEDTUBE PRN PRN Hypoglycemia Sodium Bicarbonate 325 mg 03/17/19 14:45 Sodium Bicarbonate FEEDTUBE PRN PRN For Clogged Feeding Tube
--- NOTE | 2019-03-18 11:54 | Post Operative Note ---
Pre-op diagnosis: Acute Renal Failure Post-op diagnosis: same Procedure: Right IJ Vascath Insertion Anesthesia: local Surgeon: SANDRA CHRISTENSEN Estimated blood loss: minimal Pathology: none Condition: critical Disposition: ICU
[2019-03-18] MEDS: cefTRIAXone/NS 2 GM/100 ML 2 GM/100 ML BAG IV SCH ×2 (12:19→22:01)
[2019-03-18] MEDS ORDERED: ALBUMIN HUMAN 25% (25 GM/100 ML) INJ IV STA (12:19)
[2019-03-18] MEDS: SODIUM BICARBONATE 150 MEQ in DEXTROSE 5% IN WATER 1,000 ML IV SCH ×2 (12:25→21:33)
[2019-03-18] MEDS ORDERED: MIDODRINE 5 MG TAB PO STA (12:25)
[2019-03-18] MEDS ORDERED: HYDROCORTISONE SOD SUCC 100 MG/2 ML VIAL IV STA (12:25)
--- NOTE | 2019-03-18 12:39 | XRay Report ---
CHEST 1 VIEW INDICATION / CLINICAL INFORMATION: vas cath. COMPARISON: 03/18/2019 at 0222 hours FINDINGS: SUPPORT DEVICES: New right Vas-Cath projects over the expected location of the superior vena cava. NG tube and endotracheal tube remain in satisfactory position HEART / MEDIASTINUM: No significant abnormality. LUNGS / PLEURA: Focal atelectasis again noted. No pneumothorax. ADDITIONAL FINDINGS: No significant additional findings. IMPRESSION: 1. Satisfactory right Vas-Cath placement with no complication. Signer Name: Dano Armstrong MD Signed: 03/18/2019 12:34 PM Workstation Name: [id number]
--- NOTE | 2019-03-18 13:03 | Progress Note ---
Assessment and Plan Severe sepsis with shock. Right axilla abscess versus localized pannus/fatty collection. Acute hypoxemic respiratory failure, on mechanical ventilator support. Likely aspiration pneumonia, bilateral. Morbid obesity. Rhabdomyolysis. Acute kidney injury. Leukocytosis. Morbid obesity. Metabolic acidosis. Lactic acidosis. Hypomagnesemia. Elevated serum transaminases/possible shock liver. Acute encephalopathy, toxic metabolic versus anoxic - wean vasopressors for target MAP > 65 mmHg - continue to hyperventilate in short term to compensate for metabolic acidosis - VAP bundle addressed - continue to wean FiO2 for sats > 90% - continue daily SAT's and SBT assessment as tolerated - target sedation for RASS 0 to -1 - prn analgesia per CPOT score - continue HD/UF per nephrology prescription and for toxin and volume control - prn supportive blood transfusions to keep serum Hb > 7.0 - Monitor hemodynamics closely - Transfuse PRBC's to keep HgB > 7g/dL - continue enteral nutrition as tolerated (NPO for now; trickle feeding and advance once more stable) - continue empiric broad spectrum antiinfective's per ID recommendations (de- escalate based on clinical and microbiologic data) - continue mobility protocols and off loading as tolerated for pressure ulcer prophylaxis - continue to avoid nephrotoxins, adjust all medications for GFR and CRCL - continue GI & VTE prophylaxis with - accuchecks with glycemic control per SSI for target BG of 140-180 mg/dl acutely - continue other care per attending / other consultants ... re-evaluate in am & prn CONDITION: CRITICAL PROGNOSIS: VERY GUARDED CODE STATUS: FULL CODE Discussed extensively with RT/RN and care team in ICU IDT rounds The high probability of a clinically significant, sudden or life threatening deterioration of the [respiratory, renal and Cardiac] system's' required my full and direct attention, intervention and personal management. The aggregate critical care time was 45 minutes. This time is in addition to time spent p erforming reported procedures but includes the following: [x] Data Review and interpretation [x] Patient assessment and monitoring of vital signs [x] Documentation [x] Medication orders and management Subjective Date of service: 03/18/19 Principal diagnosis: Septic Shock; Ac. hypoxemic resp failure; Renzo. PNA; Rh abdomyolysis; RUBEN Interval history: Patient is seen today for: Severe sepsis with shock; Acute hypoxemic respiratory failure; Aspiration pneumonia; Morbid obesity; Rhabdomyolysis; Acute kidney injury; Morbid obesity; Elevated serum transaminases/possible shock liver; Acute encephalopathy (Toxic/Met) Seen and examined at bedside; 24hour events reviewed; nursing and respiratory care staff consulted; no adverse overnight events reported to me; resting peacefully in bed; remains maxed out on 4 vasopressors; discussed risks of HD/UF with next of kin but also explained the catch 22 that he needs dialysis; decision was made to proceed; he is still responsive; still anuric; no overt pulmonary edema at this point but likely headed that way Objective Vital Signs - 12hr 03/18/19 03/18/19 03/18/19 01:01 01:11 01:21 Temperature Pulse Rate 109 H 108 H 107 H Pulse Rate [ Right Dorsalis Pedis] Respiratory 22 22 22 Rate Blood Pressure 75/21 75/21 75/21 O2 Sat by Pulse 93 93 94 Oximetry 03/18/19 03/18/19 03/18/19 01:31 01:41 01:51 Temperature Pulse Rate 107 H 107 H 107 H Pulse Rate [ Right Dorsalis Pedis] Respiratory 22 18 17 Rate Blood Pressure 75/21 93/58 93/58 O2 Sat by Pulse 92 94 94 Oximetry 03/18/19 03/18/19 03/18/19 02:01 02:11 02:21 Temperature Pulse Rate 106 H 105 H 103 H Pulse Rate [ Right Dorsalis Pedis] Respiratory 17 17 18 Rate Blood Pressure 93/58 93/58 93/58 O2 Sat by Pulse 95 94 90 Oximetry 03/18/19 03/18/19 03/18/19 02:31 02:41 02:51 Temperature Pulse Rate 101 H 103 H 103 H Pulse Rate [ Right Dorsalis Pedis] Respiratory 31 H 15 33 H Rate Blood Pressure 93/58 93/58 93/58 O2 Sat by Pulse 84 82 L 89 Oximetry 03/18/19 03/18/19 03/18/19 03:01 03:11 03:21 Temperature Pulse Rate 103 H 104 H 105 H Pulse Rate [ Right Dorsalis Pedis] Respiratory 32 H 30 H 31 H Rate Blood Pressure 93/58 93/58 93/58 O2 Sat by Pulse 87 90 95 Oximetry 03/18/19 03/18/19 03/18/19 03:31 03:41 03:51 Temperature Pulse Rate 105 H 105 H 103 H Pulse Rate [ Right Dorsalis Pedis] Respiratory 30 H 18 20 Rate Blood Pressure 93/58 93/58 57/16 O2 Sat by Pulse 96 97 97 Oximetry 03/18/19 03/18/19 03/18/19 04:00 04:01 04:11 Temperature Pulse Rate 104 H 104 H 104 H Pulse Rate [ 104 H Right Dorsalis Pedis] Respiratory 30 H 25 H 25 H Rate Blood Pressure 57/16 57/16 O2 Sat by Pulse 95 98 98 Oximetry 03/18/19 03/18/19 03/18/19 04:21 04:28 04:31 Temperature 98.3 F Pulse Rate 104 H 104 H Pulse Rate [ Right Dorsalis Pedis] Respiratory 32 H 23 Rate Blood Pressure 57/16 57/16 O2 Sat by Pulse 98 98 Oximetry 03/18/19 03/18/19 03/18/19 04:41 04:49 04:51 Temperature Pulse Rate 104 H 104 H 105 H Pulse Rate [ Right Dorsalis Pedis] Respiratory 23 25 H Rate Blood Pressure 57/16 57/16 O2 Sat by Pulse 98 98 98 Oximetry 03/18/19 03/18/19 03/18/19 05:01 05:11 05:20 Temperature Pulse Rate 105 H 103 H 105 H Pulse Rate [ Right Dorsalis Pedis] Respiratory 25 H 31 H 28 H Rate Blood Pressure 57/16 57/16 O2 Sat by Pulse 99 98 98 Oximetry 03/18/19 03/18/19 03/18/19 05:31 05:41 05:52 Temperature Pulse Rate 103 H 104 H 103 H Pulse Rate [ Right Dorsalis Pedis] Respiratory 31 H 33 H 30 H Rate Blood Pressure O2 Sat by Pulse 99 99 99 Oximetry 03/18/19 03/18/19 03/18/19 06:00 06:01 06:11 Temperature Pulse Rate 100 H 102 H Pulse Rate [ 100 H Right Dorsalis Pedis] Respiratory 30 H 30 H 31 H Rate Blood Pressure O2 Sat by Pulse 95 99 100 Oximetry 03/18/19 03/18/19 03/18/19 06:21 06:31 06:41 Temperature Pulse Rate 104 H 103 H 99 H Pulse Rate [ Right Dorsalis Pedis] Respiratory 32 H 31 H 23 Rate Blood Pressure O2 Sat by Pulse 100 100 100 Oximetry 03/18/19 03/18/19 03/18/19 06:51 07:01 07:11 Temperature Pulse Rate 100 H 103 H 102 H Pulse Rate [ Right Dorsalis Pedis] Respiratory 19 19 18 Rate Blood Pressure O2 Sat by Pulse 99 99 100 Oximetry 03/18/19 03/18/19 03/18/19 07:21 07:31 07:40 Temperature Pulse Rate 102 H 103 H 100 H Pulse Rate [ Right Dorsalis Pedis] Respiratory 18 34 H 20 Rate Blood Pressure O2 Sat by Pulse 99 99 99 Oximetry 03/18/19 03/18/19 03/18/19 07:50 08:00 08:03 Temperature 98.4 F Pulse Rate 102 H 101 H 97 H Pulse Rate [ Right Dorsalis Pedis] Respiratory 25 H 17 Rate Blood Pressure O2 Sat by Pulse 99 100 98 Oximetry 03/18/19 03/18/19 03/18/19 08:11 08:20 08:31 Temperature Pulse Rate 104 H 103 H 103 H Pulse Rate [ Right Dorsalis Pedis] Respiratory 28 H 22 19 Rate Blood Pressure O2 Sat by Pulse 99 99 100 Oximetry 03/18/19 03/18/19 03/18/19 08:41 08:51 09:01 Temperature Pulse Rate 102 H 103 H 103 H Pulse Rate [ Right Dorsalis Pedis] Respiratory 16 17 16 Rate Blood Pressure O2 Sat by Pulse 100 100 100 Oximetry 03/18/19 03/18/19 03/18/19 09:10 09:21 09:31 Temperature Pulse Rate 104 H 102 H 104 H Pulse Rate [ Right Dorsalis Pedis] Respiratory 17 21 17 Rate Blood Pressure O2 Sat by Pulse 100 100 100 Oximetry 03/18/19 03/18/19 03/18/19 09:41 09:51 11:15 Temperature Pulse Rate 104 H 104 H 97 H Pulse Rate [ Right Dorsalis Pedis] Respiratory 19 18 Rate Blood Pressure O2 Sat by Pulse 100 99 96 Oximetry 03/18/19 12:47 Temperature Pulse Rate 100 H Pulse Rate [ Right Dorsalis Pedis] Respiratory Rate Blood Pressure O2 Sat by Pulse Oximetry Constitutional: other (middle aged morbidly obese CM, normocephalic with incres ed respiratory effort on MVS) Eyes: icteric ENT: oropharynx moist, other (ETT 23-24 cm PEDRO) Neck: supple, no lymphadenopathy, no JVD Effort: mildly labored Ascultation: Bilateral: diminished breath sounds, rales Percussion: Bilateral: not dull Cardiovascular: regular rate and rhythm Gastrointestinal: hypoactive bowel sounds, soft, non-tender, non-distended Integumentary: normal Extremities: no cyanosis, pink and warm, pulses normal, no ischemia or petechiae, edema Neurologic: non-focal exam (grossly), pupils equal and round, CN II-XII normal, motor strength normal and Psychiatric: other (inable to assess) CBC and BMP: 03/19/19 04:00 03/19/19 04:00 ABG, PT/INR, D-dimer: ABG POC ABG pH 7.282 (7.35-7.45) L 03/18/19 12:50 POC ABG pCO2 35.3 (35-45) 03/18/19 12:50 POC ABG pO2 67 (80-105) L 03/18/19 12:50 POC ABG HCO3 16.7 (22-26 mml/L) 03/18/19 12:50 POC ABG Total CO2 18 (23-27mmol/L) 03/18/19 12:50 POC ABG O2 Sat 91 03/18/19 12:50 PT/INR, D-dimer PT 15.9 Sec. (12.2-14.9) H 03/16/19 17:05 INR 1.30 (0.87-1.13) H 03/16/19 17:05 Abnormal lab findings: Abnormal Labs 03/16/19 03/16/19 03/16/19 16:03 16:05 16:59 WBC 27.0 H RBC 5.55 H Hgb 15.7 H Hct 47.1 H RDW Plt Count 75 L Seg Neuts % (Manual) 85.0 H Lymphocytes % (Manual) 2.0 L Monocytes % (Manual) Seg Neutrophils # Man 23.0 H Lymphocytes # (Manual) 0.5 L Monocytes # (Manual) PT INR POC ABG pH 7.297 L POC ABG pCO2 33.0 L POC ABG pO2 Sodium 127 L Potassium Chloride 87.8 L Carbon Dioxide 17 L BUN 49 H Creatinine 5.8 H Glucose 150 H POC Glucose Lactic Acid Calcium 6.6 L Phosphorus Magnesium 1.10 L Total Bilirubin Direct Bilirubin AST ALT Alkaline Phosphatase Total Creatine Kinase 50148 H CK-MB (CK-2) Troponin T C-Reactive Protein Total Protein Albumin Triglycerides LDL Cholesterol Direct HDL Cholesterol Free T4 Urine WBC (Auto) Urine Creatinine Salicylates Acetaminophen 03/16/19 03/16/19 03/16/19 17:05 17:05 17:05 WBC RBC Hgb Hct RDW Plt Count Seg Neuts % (Manual) Lymphocytes % (Manual) Monocytes % (Manual) Seg Neutrophils # Man Lymphocytes # (Manual) Monocytes # (Manual) PT INR POC ABG pH POC ABG pCO2 POC ABG pO2 Sodium Potassium Chloride Carbon Dioxide BUN Creatinine Glucose POC Glucose Lactic Acid 5.10 H* Calcium Phosphorus Magnesium Total Bilirubin Direct Bilirubin AST ALT Alkaline Phosphatase Total Creatine Kinase 16841 H CK-MB (CK-2) 83.1 H Troponin T C-Reactive Protein Total Protein Albumin Triglycerides LDL Cholesterol Direct HDL Cholesterol Free T4 0.72 L Urine WBC (Auto) Urine Creatinine Salicylates Acetaminophen 03/16/19 03/16/19 03/16/19 17:05 17:05 17:05 WBC RBC Hgb Hct RDW Plt Count Seg Neuts % (Manual) Lymphocytes % (Manual) Monocytes % (Manual) Seg Neutrophils # Man Lymphocytes # (Manual) Monocytes # (Manual) PT 15.9 H INR 1.30 H POC ABG pH POC ABG pCO2 POC ABG pO2 Sodium Potassium Chloride Carbon Dioxide BUN Creatinine Glucose POC Glucose Lactic Acid Calcium Phosphorus Magnesium Total Bilirubin Direct Bilirubin AST ALT Alkaline Phosphatase Total Creatine Kinase CK-MB (CK-2) Troponin T C-Reactive Protein Total Protein Albumin Triglycerides LDL Cholesterol Direct HDL Cholesterol Free T4 Urine WBC (Auto) Urine Creatinine Salicylates < 0.3 L Acetaminophen < 5.0 L 03/16/19 03/16/19 03/16/19 17:05 20:35 21:45 WBC RBC Hgb Hct RDW Plt Count Seg Neuts % (Manual) Lymphocytes % (Manual) Monocytes % (Manual) Seg Neutrophils # Man Lymphocytes # (Manual) Monocytes # (Manual) PT INR POC ABG pH POC ABG pCO2 POC ABG pO2 Sodium Potassium Chloride Carbon Dioxide BUN Creatinine Glucose POC Glucose Lactic Acid 3.30 H* 3.30 H* Calcium Phosphorus Magnesium Total Bilirubin 6.20 H Direct Bilirubin 5.9 H AST 800 H ALT 120 H Alkaline Phosphatase Total Creatine Kinase CK-MB (CK-2) Troponin T C-Reactive Protein Total Protein 4.4 L Albumin 2.4 L Triglycerides LDL Cholesterol Direct HDL Cholesterol Free T4 Urine WBC (Auto) Urine Creatinine Salicylates Acetaminophen 03/16/19 03/16/19 03/17/19 22:32 Unknown 03:45 WBC RBC Hgb Hct RDW Plt Count Seg Neuts % (Manual) Lymphocytes % (Manual) Monocytes % (Manual) Seg Neutrophils # Man Lymphocytes # (Manual) Monocytes # (Manual) PT INR POC ABG pH POC ABG pCO2 POC ABG pO2 Sodium 131 L Potassium Chloride 88.9 L Carbon Dioxide BUN 53 H Creatinine 7.1 H Glucose POC Glucose Lactic Acid 3.00 H* Calcium 5.4 L* D Phosphorus 7.30 H Magnesium 1.60 L Total Bilirubin 5.90 H Direct Bilirubin AST 801 H ALT 109 H Alkaline Phosphatase Total Creatine Kinase 78376 H CK-MB (CK-2) Troponin T 0.047 H D C-Reactive Protein Total Protein 4.5 L Albumin 2.0 L Triglycerides 395 H LDL Cholesterol Direct 10 L HDL Cholesterol 7 L Free T4 Urine WBC (Auto) Urine Creatinine Salicylates Acetaminophen 03/17/19 03/17/19 03/17/19 03:45 03:45 05:47 WBC RBC Hgb Hct RDW Plt Count Seg Neuts % (Manual) Lymphocytes % (Manual) Monocytes % (Manual) Seg Neutrophils # Man Lymphocytes # (Manual) Monocytes # (Manual) PT INR POC ABG pH 7.193 L POC ABG pCO2 45.2 H POC ABG pO2 65 L Sodium Potassium Chloride Carbon Dioxide BUN Creatinine Glucose POC Glucose Lactic Acid 4.10 H* Calcium Phosphorus Magnesium Total Bilirubin Direct Bilirubin AST ALT Alkaline Phosphatase Total Creatine Kinase 09487 H CK-MB (CK-2) 41.5 H Troponin T 0.054 H C-Reactive Protein Total Protein Albumin Triglycerides LDL Cholesterol Direct HDL Cholesterol Free T4 Urine WBC (Auto) Urine Creatinine Salicylates Acetaminophen 03/17/19 03/17/19 03/17/19 07:16 07:16 11:52 WBC RBC Hgb Hct RDW Plt Count Seg Neuts % (Manual) Lymphocytes % (Manual) Monocytes % (Manual) Seg Neutrophils # Man Lymphocytes # (Manual) Monocytes # (Manual) PT INR POC ABG pH POC ABG pCO2 POC ABG pO2 Sodium Potassium Chloride Carbon Dioxide BUN Creatinine Glucose POC Glucose Lactic Acid 5.50 H* 8.20 H* Calcium Phosphorus Magnesium Total Bilirubin Direct Bilirubin AST ALT Alkaline Phosphatase Total Creatine Kinase 10452 H CK-MB (CK-2) 54.3 H Troponin T 0.058 H C-Reactive Protein Total Protein Albumin Triglycerides LDL Cholesterol Direct HDL Cholesterol Free T4 Urine WBC (Auto) Urine Creatinine Salicylates Acetaminophen 03/17/19 03/17/19 03/17/19 12:51 13:01 14:37 WBC RBC Hgb Hct RDW Plt Count Seg Neuts % (Manual) Lymphocytes % (Manual) Monocytes % (Manual) Seg Neutrophils # Man Lymphocytes # (Manual) Monocytes # (Manual) PT INR POC ABG pH 7.154 L POC ABG pCO2 34.3 L POC ABG pO2 73 L Sodium Potassium Chloride Carbon Dioxide BUN Creatinine Glucose POC Glucose 60 L Lactic Acid Calcium Phosphorus Magnesium Total Bilirubin Direct Bilirubin AST ALT Alkaline Phosphatase Total Creatine Kinase CK-MB (CK-2) Troponin T C-Reactive Protein 24.90 H Total Protein Albumin Triglycerides LDL Cholesterol Direct HDL Cholesterol Free T4 Urine WBC (Auto) Urine Creatinine Salicylates Acetaminophen 03/17/19 03/17/19 03/17/19 14:37 14:37 16:05 WBC 29.3 H RBC Hgb Hct RDW 15.8 H Plt Count 45 L Seg Neuts % (Manual) 81.0 H Lymphocytes % (Manual) 1.0 L Monocytes % (Manual) 15.0 H Seg Neutrophils # Man 23.7 H Lymphocytes # (Manual) 0.3 L Monocytes # (Manual) 4.4 H PT INR POC ABG pH POC ABG pCO2 POC ABG pO2 Sodium Potassium Chloride Carbon Dioxide BUN Creatinine Glucose POC Glucose Lactic Acid 4.90 H* Calcium Phosphorus Magnesium Total Bilirubin Direct Bilirubin AST ALT Alkaline Phosphatase Total Creatine Kinase CK-MB (CK-2) Troponin T C-Reactive Protein Total Protein Albumin Triglycerides LDL Cholesterol Direct HDL Cholesterol Free T4 Urine WBC (Auto) 30.0 H Urine Creatinine Salicylates Acetaminophen 03/17/19 03/17/19 03/18/19 16:05 17:02 05:12 WBC RBC Hgb Hct RDW Plt Count Seg Neuts % (Manual) Lymphocytes % (Manual) Monocytes % (Manual) Seg Neutrophils # Man Lymphocytes # (Manual) Monocytes # (Manual) PT INR POC ABG pH 7.183 L 7.257 L POC ABG pCO2 31.6 L POC ABG pO2 65 L 69 L Sodium Potassium Chloride Carbon Dioxide BUN Creatinine Glucose POC Glucose Lactic Acid Calcium Phosphorus Magnesium Total Bilirubin Direct Bilirubin AST ALT Alkaline Phosphatase Total Creatine Kinase CK-MB (CK-2) Troponin T C-Reactive Protein Total Protein Albumin Triglycerides LDL Cholesterol Direct HDL Cholesterol Free T4 Urine WBC (Auto) Urine Creatinine 106.6 H Salicylates Acetaminophen 03/18/19 03/18/19 03/18/19 05:16 05:53 06:57 WBC RBC Hgb Hct RDW Plt Count Seg Neuts % (Manual) Lymphocytes % (Manual) Monocytes % (Manual) Seg Neutrophils # Man Lymphocytes # (Manual) Monocytes # (Manual) PT INR POC ABG pH POC ABG pCO2 POC ABG pO2 Sodium Potassium Chloride Carbon Dioxide BUN Creatinine Glucose POC Glucose 141 H Lactic Acid 5.00 H* 5.00 H* Calcium Phosphorus Magnesium Total Bilirubin Direct Bilirubin AST ALT Alkaline Phosphatase Total Creatine Kinase CK-MB (CK-2) Troponin T C-Reactive Protein Total Protein Albumin Triglycerides LDL Cholesterol Direct HDL Cholesterol Free T4 Urine WBC (Auto) Urine Creatinine Salicylates Acetaminophen 03/18/19 03/18/19 03/18/19 08:40 08:40 12:33 WBC 31.7 H RBC Hgb Hct RDW 15.5 H Plt Count 35 L Seg Neuts % (Manual) Lymphocytes % (Manual) Monocytes % (Manual) Seg Neutrophils # Man Lymphocytes # (Manual) Monocytes # (Manual) PT INR POC ABG pH POC ABG pCO2 POC ABG pO2 Sodium 132 L Potassium 5.5 H D Chloride 88.5 L Carbon Dioxide 18 L BUN 71 H Creatinine 8.1 H Glucose 205 H POC Glucose 129 H Lactic Acid Calcium 4.1 L* D Phosphorus Magnesium 2.40 H Total Bilirubin 7.50 H Direct Bilirubin AST 1088 H ALT 159 H Alkaline Phosphatase 190 H Total Creatine Kinase 418418 H CK-MB (CK-2) Troponin T C-Reactive Protein Total Protein 4.7 L Albumin 1.8 L Triglycerides LDL Cholesterol Direct HDL Cholesterol Free T4 Urine WBC (Auto) Urine Creatinine Salicylates Acetaminophen 03/18/19 12:50 WBC RBC Hgb Hct RDW Plt Count Seg Neuts % (Manual) Lymphocytes % (Manual) Monocytes % (Manual) Seg Neutrophils # Man Lymphocytes # (Manual) Monocytes # (Manual) PT INR POC ABG pH 7.282 L POC ABG pCO2 POC ABG pO2 67 L Sodium Potassium Chloride Carbon Dioxide BUN Creatinine Glucose POC Glucose Lactic Acid Calcium Phosphorus Magnesium Total Bilirubin Direct Bilirubin AST ALT Alkaline Phosphatase Total Creatine Kinase CK-MB (CK-2) Troponin T C-Reactive Protein Total Protein Albumin Triglycerides LDL Cholesterol Direct HDL Cholesterol Free T4 Urine WBC (Auto) Urine Creatinine Salicylates Acetaminophen Chest x-ray: image reviewed (MARGOT wang; no overt pulmonary edema) Allied health notes reviewed: nursing
[2019-03-18] MEDS ORDERED: SODIUM CHLORIDE 0.9% 100 ML IV PRN (13:16)
[2019-03-18 13:56] LABS: Calcium 4.2 mg/dL (8.4-10.2)
--- NOTE | 2019-03-18 14:14 | Progress Note ---
Assessment and Plan The patient's cardiac status is currently stable. Echocardiogram pending - further recommendations to come. We will continue supportive care for now. Prognosis is guarded. The patient has been seen by Dr. Moreno, who performed the assessment and developed the plan. - Patient Problems (1) Septic shock Current Visit: Yes Status: Acute (2) Acute respiratory failure Current Visit: Yes Status: Acute (3) Ventricular tachycardia Current Visit: Yes Status: Resolved (4) Metabolic encephalopathy Current Visit: Yes Status: Acute (5) Elevated LFTs Current Visit: Yes Status: Acute (6) Enteritis Current Visit: Yes Status: Suspected (7) Acute renal failure Current Visit: Yes Status: Acute (8) Aspiration pneumonia Current Visit: Yes Status: Suspected (9) Hypomagnesemia Current Visit: Yes Status: Acute (10) Multi-organ system dysfunction Current Visit: Yes Status: Acute (11) Rhabdomyolysis Current Visit: Yes Status: Acute (12) SVT (supraventricular tachycardia) Current Visit: Yes Status: Resolved (13) Thrombocytopenia Current Visit: Yes Status: Acute Subjective Date of service: 03/18/19 Principal diagnosis: Septic Shock; Ac. hypoxemic resp failure; Renzo. PNA; Rhabdomyolysis; RUBEN Interval history: Patient remains intubated, sedated and on multiple pressors. He responds to voice. ST in 100s on telemetry. Objective Last Vital Signs Temp 98.3 F 03/18/19 12:00 Pulse 104 H 03/18/19 14:01 Resp 27 H 03/18/19 14:01 BP 98/51 03/18/19 14:01 Pulse Ox 100 03/18/19 14:01 - Physical Examination General: Other (intubated, sedated) HEENT: Positive: PERRL Neck: Positive: neck supple Cardiac: Positive: Regular Rhythm Lungs: Positive: Ventilated Respirations Neuro: Positive: Other (withdraws from pain, responds to voice) Abdomen: Positive: Unremarkable /Rectal: Other (deferred) Skin: Positive: Clear Musculoskeletal: Decreased Range of Motion Extremities: Present: lower extr. pulses (weak, thready ) - Labs and Meds Cardiac Enzymes 03/18/19 Range/Units 08:40 AST 1088 H (5-40) units/L CBC 03/17/19 03/18/19 Range/Units 14:37 08:40 WBC 29.3 H 31.7 H (4.5-11.0) K/mm3 RBC 4.93 4.85 (3.65-5.03) M/mm3 Hgb 13.9 13.7 (11.8-15.2) gm/dl Hct 43.1 41.3 (35.5-45.6) % Plt Count 45 L 35 L (140-440) K/mm3 Comprehensive Metabolic Panel 03/18/19 03/18/19 Range/Units 08:40 13:19 Sodium 132 L (137-145) mmol/L Potassium 5.5 H D (3.6-5.0) mmol/L Chloride 88.5 L (98-107) mmol/L Carbon Dioxide 18 L (22-30) mmol/L BUN 71 H (9-20) mg/dL Creatinine 8.1 H (0.8-1.5) mg/dL Glucose 205 H (75-100) mg/dL Calcium 4.1 L* D 4.2 L* (8.4-10.2) mg/dL AST 1088 H (5-40) units/L ALT 159 H (7-56) units/L Alkaline Phosphatase 190 H (35-129) units/L Total Protein 4.7 L (6.3-8.2) g/dL Albumin 1.8 L (3.9-5) g/dL - Imaging and Cardiology Echo: pending
[2019-03-18] MEDS ORDERED: VANCOMYCIN 2,000 MG in SODIUM CHLORIDE 0.9% 500 ML 500 ML IV ONE (14:30)
--- NOTE | 2019-03-18 14:40 | Progress Note ---
Assessment and Plan 43 yo M with 1. septic shock 2. RUBEN 3. rhabdomyolysis 4. AMS 5. multiorgan failure 6. electrolyte abnormalities 7. right axillary cellulitis Plan: 1. neuro - sedation as needed 2. CV - maxed out on 4 pressors, abigail, DVT ppx. CBC daily - monitor thrombocytopenia 3. Resp - vent management per ICU 4. GI - GI ppx. keep NPO. IVF stopped due to anuria. OGT to LIWS 5. - garcia. monitor [employer], CK (worsening). HD to be started by nephro 6. ID - ID on board, continue abx. Lumbar puncture ordered. R axillary u/s - edema, no abscess. UA + 7. Endo - blood glucose monitoring 8. Tox - UDS negative. 9. FEN - replace lytes aggressively. NPO, BMP daily Pt critically ill, unstable, on 4 pressors. He does not have evidence of peritonitis and no definitive indication for surgical intervention. Furthermore, in his current state, the patient would not survive an abdominal exploration. Recommend continuing supportive care as above. Discussed with Dr. Jj and Dr. Gomez Discussed with patient's brother at the bedside Will follow. Thank you, please call with questions. Subjective Date of service: 03/18/19 Narrative: Pt seen and examined. Less responsive. On 4 pressor support, maximum doses. No urine output Objective Vital Signs - 12hr 03/18/19 03/18/19 03/18/19 02:41 02:51 03:01 Temperature Pulse Rate 103 H 103 H 103 H Pulse Rate [ Right Dorsalis Pedis] Respiratory 15 33 H 32 H Rate Blood Pressure 93/58 93/58 93/58 O2 Sat by Pulse 82 L 89 87 Oximetry O2 Sat by Pulse Oximetry [ Anterior Bilateral Throughout] 03/18/19 03/18/19 03/18/19 03:11 03:21 03:31 Temperature Pulse Rate 104 H 105 H 105 H Pulse Rate [ Right Dorsalis Pedis] Respiratory 30 H 31 H 30 H Rate Blood Pressure 93/58 93/58 93/58 O2 Sat by Pulse 90 95 96 Oximetry O2 Sat by Pulse Oximetry [ Anterior Bilateral Throughout] 03/18/19 03/18/19 03/18/19 03:41 03:51 04:00 Temperature Pulse Rate 105 H 103 H 104 H Pulse Rate [ 104 H Right Dorsalis Pedis] Respiratory 18 20 30 H Rate Blood Pressure 93/58 57/16 O2 Sat by Pulse 97 97 95 Oximetry O2 Sat by Pulse Oximetry [ Anterior Bilateral Throughout] 03/18/19 03/18/19 03/18/19 04:01 04:11 04:21 Temperature Pulse Rate 104 H 104 H 104 H Pulse Rate [ Right Dorsalis Pedis] Respiratory 25 H 25 H 32 H Rate Blood Pressure 57/16 57/16 57/16 O2 Sat by Pulse 98 98 98 Oximetry O2 Sat by Pulse Oximetry [ Anterior Bilateral Throughout] 03/18/19 03/18/19 03/18/19 04:28 04:31 04:41 Temperature 98.3 F Pulse Rate 104 H 104 H Pulse Rate [ Right Dorsalis Pedis] Respiratory 23 23 Rate Blood Pressure 57/16 57/16 O2 Sat by Pulse 98 98 Oximetry O2 Sat by Pulse Oximetry [ Anterior Bilateral Throughout] 03/18/19 03/18/19 03/18/19 04:49 04:51 05:01 Temperature Pulse Rate 104 H 105 H 105 H Pulse Rate [ Right Dorsalis Pedis] Respiratory 25 H 25 H Rate Blood Pressure 57/16 57/16 O2 Sat by Pulse 98 98 99 Oximetry O2 Sat by Pulse Oximetry [ Anterior Bilateral Throughout] 03/18/19 03/18/19 03/18/19 05:11 05:20 05:31 Temperature Pulse Rate 103 H 105 H 103 H Pulse Rate [ Right Dorsalis Pedis] Respiratory 31 H 28 H 31 H Rate Blood Pressure 57/16 O2 Sat by Pulse 98 98 99 Oximetry O2 Sat by Pulse Oximetry [ Anterior Bilateral Throughout] 03/18/19 03/18/19 03/18/19 05:41 05:52 06:00 Temperature Pulse Rate 104 H 103 H Pulse Rate [ 100 H Right Dorsalis Pedis] Respiratory 33 H 30 H 30 H Rate Blood Pressure O2 Sat by Pulse 99 99 95 Oximetry O2 Sat by Pulse Oximetry [ Anterior Bilateral Throughout] 03/18/19 03/18/19 03/18/19 06:01 06:11 06:21 Temperature Pulse Rate 100 H 102 H 104 H Pulse Rate [ Right Dorsalis Pedis] Respiratory 30 H 31 H 32 H Rate Blood Pressure O2 Sat by Pulse 99 100 100 Oximetry O2 Sat by Pulse Oximetry [ Anterior Bilateral Throughout] 03/18/19 03/18/19 03/18/19 06:31 06:41 06:51 Temperature Pulse Rate 103 H 99 H 100 H Pulse Rate [ Right Dorsalis Pedis] Respiratory 31 H 23 19 Rate Blood Pressure O2 Sat by Pulse 100 100 99 Oximetry O2 Sat by Pulse Oximetry [ Anterior Bilateral Throughout] 03/18/19 03/18/19 03/18/19 07:01 07:11 07:21 Temperature Pulse Rate 103 H 102 H 102 H Pulse Rate [ Right Dorsalis Pedis] Respiratory 19 18 18 Rate Blood Pressure O2 Sat by Pulse 99 100 99 Oximetry O2 Sat by Pulse Oximetry [ Anterior Bilateral Throughout] 03/18/19 03/18/19 03/18/19 07:31 07:40 07:50 Temperature Pulse Rate 103 H 100 H 102 H Pulse Rate [ Right Dorsalis Pedis] Respiratory 34 H 20 25 H Rate Blood Pressure O2 Sat by Pulse 99 99 99 Oximetry O2 Sat by Pulse Oximetry [ Anterior Bilateral Throughout] 03/18/19 03/18/19 03/18/19 08:00 08:03 08:11 Temperature 98.4 F Pulse Rate 101 H 97 H 104 H Pulse Rate [ Right Dorsalis Pedis] Respiratory 17 28 H Rate Blood Pressure O2 Sat by Pulse 100 98 99 Oximetry O2 Sat by Pulse Oximetry [ Anterior Bilateral Throughout] 03/18/19 03/18/19 03/18/19 08:20 08:31 08:41 Temperature Pulse Rate 103 H 103 H 102 H Pulse Rate [ Right Dorsalis Pedis] Respiratory 22 19 16 Rate Blood Pressure O2 Sat by Pulse 99 100 100 Oximetry O2 Sat by Pulse Oximetry [ Anterior Bilateral Throughout] 03/18/19 03/18/19 03/18/19 08:51 09:01 09:10 Temperature Pulse Rate 103 H 103 H 104 H Pulse Rate [ Right Dorsalis Pedis] Respiratory 17 16 17 Rate Blood Pressure O2 Sat by Pulse 100 100 100 Oximetry O2 Sat by Pulse Oximetry [ Anterior Bilateral Throughout] 03/18/19 03/18/19 03/18/19 09:21 09:31 09:41 Temperature Pulse Rate 102 H 104 H 104 H Pulse Rate [ Right Dorsalis Pedis] Respiratory 21 17 19 Rate Blood Pressure O2 Sat by Pulse 100 100 100 Oximetry O2 Sat by Pulse Oximetry [ Anterior Bilateral Throughout] 03/18/19 03/18/19 03/18/19 09:51 10:01 10:11 Temperature Pulse Rate 104 H 105 H 104 H Pulse Rate [ Right Dorsalis Pedis] Respiratory 18 17 19 Rate Blood Pressure O2 Sat by Pulse 99 100 99 Oximetry O2 Sat by Pulse Oximetry [ Anterior Bilateral Throughout] 03/18/19 03/18/19 03/18/19 10:21 10:31 10:41 Temperature Pulse Rate 105 H 104 H 104 H Pulse Rate [ Right Dorsalis Pedis] Respiratory 20 19 16 Rate Blood Pressure O2 Sat by Pulse 99 99 99 Oximetry O2 Sat by Pulse Oximetry [ Anterior Bilateral Throughout] 03/18/19 03/18/19 03/18/19 10:51 11:01 11:11 Temperature Pulse Rate 105 H 105 H 103 H Pulse Rate [ Right Dorsalis Pedis] Respiratory 22 16 18 Rate Blood Pressure O2 Sat by Pulse 84 88 85 Oximetry O2 Sat by Pulse Oximetry [ Anterior Bilateral Throughout] 03/18/19 03/18/19 03/18/19 11:15 11:21 11:31 Temperature Pulse Rate 97 H 104 H 104 H Pulse Rate [ Right Dorsalis Pedis] Respiratory 18 20 Rate Blood Pressure O2 Sat by Pulse 96 95 88 Oximetry O2 Sat by Pulse Oximetry [ Anterior Bilateral Throughout] 03/18/19 03/18/19 03/18/19 11:41 11:51 12:00 Temperature 98.3 F Pulse Rate 104 H 105 H 105 H Pulse Rate [ Right Dorsalis Pedis] Respiratory 20 15 Rate Blood Pressure O2 Sat by Pulse 98 97 100 Oximetry O2 Sat by Pulse Oximetry [ Anterior Bilateral Throughout] 03/18/19 03/18/19 03/18/19 12:01 12:11 12:21 Temperature Pulse Rate 106 H 105 H 104 H Pulse Rate [ Right Dorsalis Pedis] Respiratory 20 21 17 Rate Blood Pressure O2 Sat by Pulse 96 99 100 Oximetry O2 Sat by Pulse Oximetry [ Anterior Bilateral Throughout] 03/18/19 03/18/19 03/18/19 12:31 12:41 12:47 Temperature Pulse Rate 105 H 106 H 100 H Pulse Rate [ Right Dorsalis Pedis] Respiratory 16 16 Rate Blood Pressure O2 Sat by Pulse 100 100 Oximetry O2 Sat by Pulse Oximetry [ Anterior Bilateral Throughout] 03/18/19 03/18/19 03/18/19 12:51 13:01 13:11 Temperature Pulse Rate 106 H 107 H 106 H Pulse Rate [ Right Dorsalis Pedis] Respiratory 18 19 14 Rate Blood Pressure O2 Sat by Pulse 98 99 100 Oximetry O2 Sat by Pulse Oximetry [ Anterior Bilateral Throughout] 03/18/19 03/18/19 03/18/19 13:21 13:31 13:41 Temperature Pulse Rate 106 H 106 H 105 H Pulse Rate [ Right Dorsalis Pedis] Respiratory 14 32 H 24 Rate Blood Pressure O2 Sat by Pulse 100 100 100 Oximetry O2 Sat by Pulse Oximetry [ Anterior Bilateral Throughout] 03/18/19 03/18/19 03/18/19 13:51 14:00 14:01 Temperature Pulse Rate 105 H 107 H 104 H Pulse Rate [ Right Dorsalis Pedis] Respiratory 30 H 27 H Rate Blood Pressure 98/51 98/51 98/51 O2 Sat by Pulse 100 100 Oximetry O2 Sat by Pulse Oximetry [ Anterior Bilateral Throughout] 03/18/19 03/18/19 14:15 14:16 Temperature 98.3 F Pulse Rate 108 H 74 Pulse Rate [ Right Dorsalis Pedis] Respiratory 27 H Rate Blood Pressure 118/64 103/59 O2 Sat by Pulse Oximetry O2 Sat by Pulse 100 Oximetry [ Anterior Bilateral Throughout] - General physical appearance Narrative Exam: General: On vent, sedated HEENT: ET tube and OG tube in place CV: S1, S2 present, tachycardic Respiratory: On vent Abdomen: Soft, nontender, nondistended Extremities: Generalized edema : Garcia catheter in placed no urine in bag - Labs 03/18/19 08:40 03/18/19 08:40 Diabetes panel 03/18/19 03/18/19 Range/Units 08:40 13:19 Sodium 132 L (137-145) mmol/L Potassium 5.5 H D (3.6-5.0) mmol/L Chloride 88.5 L (98-107) mmol/L Carbon Dioxide 18 L (22-30) mmol/L BUN 71 H (9-20) mg/dL Creatinine 8.1 H (0.8-1.5) mg/dL Glucose 205 H (75-100) mg/dL Calcium 4.1 L* D 4.2 L* (8.4-10.2) mg/dL AST 1088 H (5-40) units/L ALT 159 H (7-56) units/L Alkaline Phosphatase 190 H (35-129) units/L Total Protein 4.7 L (6.3-8.2) g/dL Albumin 1.8 L (3.9-5) g/dL Calcium panel 03/18/19 03/18/19 Range/Units 08:40 13:19 Calcium 4.1 L* D 4.2 L* (8.4-10.2) mg/dL Albumin 1.8 L (3.9-5) g/dL Pituitary panel 03/18/19 03/18/19 Range/Units 08:40 13:19 Sodium 132 L (137-145) mmol/L Potassium 5.5 H D (3.6-5.0) mmol/L Chloride 88.5 L (98-107) mmol/L Carbon Dioxide 18 L (22-30) mmol/L BUN 71 H (9-20) mg/dL Creatinine 8.1 H (0.8-1.5) mg/dL Glucose 205 H (75-100) mg/dL Calcium 4.1 L* D 4.2 L* (8.4-10.2) mg/dL Adrenal panel 03/18/19 03/18/19 Range/Units 08:40 13:19 Sodium 132 L (137-145) mmol/L Potassium 5.5 H D (3.6-5.0) mmol/L Chloride 88.5 L (98-107) mmol/L Carbon Dioxide 18 L (22-30) mmol/L BUN 71 H (9-20) mg/dL Creatinine 8.1 H (0.8-1.5) mg/dL Glucose 205 H (75-100) mg/dL Calcium 4.1 L* D 4.2 L* (8.4-10.2) mg/dL Total Bilirubin 7.50 H (0.1-1.2) mg/dL AST 1088 H (5-40) units/L ALT 159 H (7-56) units/L Alkaline Phosphatase 190 H (35-129) units/L Total Protein 4.7 L (6.3-8.2) g/dL Albumin 1.8 L (3.9-5) g/dL - Imaging Additional Studies: Ultrasound of right axilla - edema, no abscess or collection
[2019-03-18 14:56] LABS: Hepatitis B Surface Antigen Non-Reactive (Negative); Hepatitis C Virus Antibody Non-Reactive (NonReactive)
[2019-03-18] MEDS ORDERED: CALCIUM CHLORIDE 2,000 MG in SODIUM CHLORIDE 0.9% 100 ML IV ONE (15:00)
--- NOTE | 2019-03-18 16:02 | Progress Note ---
Assessment and Plan Cultures: 03/16/2019 Blood culture no growth so far 03/16/2019 Tracheal aspirate culture poor specimen 03/17/2019 Urine culture no growth so far Assessment: 1) Severe Sepsis with septic shock: still on 4 pressors now on HD, leukocytosis worsening, fever trending down; source likely aspiration pneumonitis +/- mild UTI (I doubt pneumonia/UTI alone are causing current severe sepsis) +/- occult infection ? meningitis, ? right axillary abscess, ? toxic shock syndrome, ?tick bite infection, ?leptospira (recently outdoor traveling, homeless now AMS/fever/rash). Blood culture negative so far. UA with mild pyuria ?. HIV rapid negative. Strep A rapid ag negative. 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 He lives in a hotel in a [place] neighborhood in [place] and believes he has been intermittently homeless. He met his friend Gio, who brought him to [place]. Brother denies any history of drug abuse or alcohol abuse but reports history of mental disorder, he has never received treatment. His parent do not talk to him. He denies homosexual behavior but does not have clear why he is in so close contact with new friend Gio here in [place]. Brother does not know anything about his symptoms as he spoke with him last time 3 months ago. 2) Probable aspiration pneumonia 3) Acute respiratory failure 4) ?Right axillary mass: doubt abscess, US no collection seen 5) Acute encephalopathy: should r/o meningitis. CT head shows diffuse cerebral edema ?artifact 6) Multiorgan dysfunction syndrome 7) RUBEN: renally dosing all abx, now on HD 8) Elevated LFTs/shock liver: viral hepatitis panel negative. 9) Thrombocytopenia 10) Rhabdomyolisis 11) ?Enteritis: per CT ? no collection no perforation no obvious ischemic bowel 12) VT Recommendations: follow blood culture and respiratory culture repeat CT head and obtain lumbar puncture -pending neuro consult / EEG continue clindamycin at 900 mg IV q 8h continue ceftriaxone 2 gm IV q 12 h continue doxycycline 100 mg IV q 12 h continue vancomycin IV renally adjusted surgery on board Guarded prognosis Will follow. Risa Bryant MD Infectious Diseases [facility] ([facility]) M [phone] O [phone] Subjective Date of service: 03/18/19 Principal diagnosis: Septic Shock; Ac. hypoxemic resp failure; Dannie. PNA; Rhabdomyolysis; RUBEN Interval history: Remains on 4 pressors now on HD for first time, tmax 102, intubated, sedated, brother at bedside. Objective - Exam Narrative Exam: General appearance: sedated intubated Eyes: +icteric sclerae, +mild erythematous conjunctivae with minimal yellowish secretion; PERRLA HENT: Atraumatic; oropharynx with ETT Neck: +grimace with posterior neck palpation Lungs:dannie rhonchi CV: RRR Abdomen: Soft, non-tender; no masses or hepatosplenomegaly Extremities: no edema, no cyanosis, +right axillar soft tissue mass non tender Skin: +diffuse erythematous blanching rash allover and mild jaundice Psych: sedated. Neuro: sedated - Constitutional Vitals: Vital Signs Temp Pulse Resp BP Pulse Ox 98.3 F 96 H 15 98/51 97 03/18/19 14:16 03/18/19 15:01 03/18/19 15:01 03/18/19 15:01 03/18/19 15:01 Temperature -Last 24 Hours Temperature 98.3 F Temperature 98.3 F Temperature 98.4 F Temperature 98.3 F Temperature 100.8 F Temperature 102.2 F Temperature 100.9 F - Labs CBC & Chem 7: 03/18/19 08:40 03/18/19 08:40 Labs: Abnormal lab results 03/17/19 03/17/19 03/17/19 Range/Units 14:37 16:05 16:05 WBC (4.5-11.0) K/mm3 RDW (13.2-15.2) % Plt Count (140-440) K/mm3 Seg Neuts % (Manual) 81.0 H (40.0-70.0) % Lymphocytes % (Manual) 1.0 L (13.4-35.0) % Monocytes % (Manual) 15.0 H (0.0-7.3) % Seg Neutrophils # Man 23.7 H (1.8-7.7) K/mm3 Lymphocytes # (Manual) 0.3 L (1.2-5.4) K/mm3 Monocytes # (Manual) 4.4 H (0.0-0.8) K/mm3 POC ABG pH (7.35-7.45) POC ABG pCO2 (35-45) POC ABG pO2 (80-105) Sodium (137-145) mmol/L Potassium (3.6-5.0) mmol/L Chloride (98-107) mmol/L Carbon Dioxide (22-30) mmol/L BUN (9-20) mg/dL Creatinine (0.8-1.5) mg/dL Glucose (75-100) mg/dL POC Glucose (70-105) Lactic Acid (0.7-2.0) mmol/L Calcium (8.4-10.2) mg/dL Magnesium (1.7-2.3) mg/dL Total Bilirubin (0.1-1.2) mg/dL AST (5-40) units/L ALT (7-56) units/L Alkaline Phosphatase (35-129) units/L Total Creatine Kinase (55-170) units/L Total Protein (6.3-8.2) g/dL Albumin (3.9-5) g/dL Urine WBC (Auto) 30.0 H (0.0-6.0) /HPF Urine Creatinine 106.6 H (0.1-20.0) mg/dL 03/17/19 03/18/19 03/18/19 Range/Units 17:02 05:12 05:16 WBC (4.5-11.0) K/mm3 RDW (13.2-15.2) % Plt Count (140-440) K/mm3 Seg Neuts % (Manual) (40.0-70.0) % Lymphocytes % (Manual) (13.4-35.0) % Monocytes % (Manual) (0.0-7.3) % Seg Neutrophils # Man (1.8-7.7) K/mm3 Lymphocytes # (Manual) (1.2-5.4) K/mm3 Monocytes # (Manual) (0.0-0.8) K/mm3 POC ABG pH 7.183 L 7.257 L (7.35-7.45) POC ABG pCO2 31.6 L (35-45) POC ABG pO2 65 L 69 L (80-105) Sodium (137-145) mmol/L Potassium (3.6-5.0) mmol/L Chloride (98-107) mmol/L Carbon Dioxide (22-30) mmol/L BUN (9-20) mg/dL Creatinine (0.8-1.5) mg/dL Glucose (75-100) mg/dL POC Glucose (70-105) Lactic Acid 5.00 H* (0.7-2.0) mmol/L Calcium (8.4-10.2) mg/dL Magnesium (1.7-2.3) mg/dL Total Bilirubin (0.1-1.2) mg/dL AST (5-40) units/L ALT (7-56) units/L Alkaline Phosphatase (35-129) units/L Total Creatine Kinase (55-170) units/L Total Protein (6.3-8.2) g/dL Albumin (3.9-5) g/dL Urine WBC (Auto) (0.0-6.0) /HPF Urine Creatinine (0.1-20.0) mg/dL 03/18/19 03/18/19 03/18/19 Range/Units 05:53 06:57 08:40 WBC 31.7 H (4.5-11.0) K/mm3 RDW 15.5 H (13.2-15.2) % Plt Count 35 L (140-440) K/mm3 Seg Neuts % (Manual) (40.0-70.0) % Lymphocytes % (Manual) (13.4-35.0) % Monocytes % (Manual) (0.0-7.3) % Seg Neutrophils # Man (1.8-7.7) K/mm3 Lymphocytes # (Manual) (1.2-5.4) K/mm3 Monocytes # (Manual) (0.0-0.8) K/mm3 POC ABG pH (7.35-7.45) POC ABG pCO2 (35-45) POC ABG pO2 (80-105) Sodium (137-145) mmol/L Potassium (3.6-5.0) mmol/L Chloride (98-107) mmol/L Carbon Dioxide (22-30) mmol/L BUN (9-20) mg/dL Creatinine (0.8-1.5) mg/dL Glucose (75-100) mg/dL POC Glucose 141 H (70-105) Lactic Acid 5.00 H* (0.7-2.0) mmol/L Calcium (8.4-10.2) mg/dL Magnesium (1.7-2.3) mg/dL Total Bilirubin (0.1-1.2) mg/dL AST (5-40) units/L ALT (7-56) units/L Alkaline Phosphatase (35-129) units/L Total Creatine Kinase (55-170) units/L Total Protein (6.3-8.2) g/dL Albumin (3.9-5) g/dL Urine WBC (Auto) (0.0-6.0) /HPF Urine Creatinine (0.1-20.0) mg/dL 03/18/19 03/18/19 03/18/19 Range/Units 08:40 12:33 12:50 WBC (4.5-11.0) K/mm3 RDW (13.2-15.2) % Plt Count (140-440) K/mm3 Seg Neuts % (Manual) (40.0-70.0) % Lymphocytes % (Manual) (13.4-35.0) % Monocytes % (Manual) (0.0-7.3) % Seg Neutrophils # Man (1.8-7.7) K/mm3 Lymphocytes # (Manual) (1.2-5.4) K/mm3 Monocytes # (Manual) (0.0-0.8) K/mm3 POC ABG pH 7.282 L (7.35-7.45) POC ABG pCO2 (35-45) POC ABG pO2 67 L (80-105) Sodium 132 L (137-145) mmol/L Potassium 5.5 H D (3.6-5.0) mmol/L Chloride 88.5 L (98-107) mmol/L Carbon Dioxide 18 L (22-30) mmol/L BUN 71 H (9-20) mg/dL Creatinine 8.1 H (0.8-1.5) mg/dL Glucose 205 H (75-100) mg/dL POC Glucose 129 H (70-105) Lactic Acid (0.7-2.0) mmol/L Calcium 4.1 L* D (8.4-10.2) mg/dL Magnesium 2.40 H (1.7-2.3) mg/dL Total Bilirubin 7.50 H (0.1-1.2) mg/dL AST 1088 H (5-40) units/L ALT 159 H (7-56) units/L Alkaline Phosphatase 190 H (35-129) units/L Total Creatine Kinase [id number] H (55-170) units/L Total Protein 4.7 L (6.3-8.2) g/dL Albumin 1.8 L (3.9-5) g/dL Urine WBC (Auto) (0.0-6.0) /HPF Urine Creatinine (0.1-20.0) mg/dL 03/18/19 03/18/19 Range/Units 13:19 13:19 WBC (4.5-11.0) K/mm3 RDW (13.2-15.2) % Plt Count (140-440) K/mm3 Seg Neuts % (Manual) (40.0-70.0) % Lymphocytes % (Manual) (13.4-35.0) % Monocytes % (Manual) (0.0-7.3) % Seg Neutrophils # Man (1.8-7.7) K/mm3 Lymphocytes # (Manual) (1.2-5.4) K/mm3 Monocytes # (Manual) (0.0-0.8) K/mm3 POC ABG pH (7.35-7.45) POC ABG pCO2 (35-45) POC ABG pO2 (80-105) Sodium (137-145) mmol/L Potassium (3.6-5.0) mmol/L Chloride (98-107) mmol/L Carbon Dioxide (22-30) mmol/L BUN (9-20) mg/dL Creatinine (0.8-1.5) mg/dL Glucose (75-100) mg/dL POC Glucose (70-105) Lactic Acid 3.30 H* (0.7-2.0) mmol/L Calcium 4.2 L* (8.4-10.2) mg/dL Magnesium (1.7-2.3) mg/dL Total Bilirubin (0.1-1.2) mg/dL AST (5-40) units/L ALT (7-56) units/L Alkaline Phosphatase (35-129) units/L Total Creatine Kinase 381784 H (55-170) units/L Total Protein (6.3-8.2) g/dL Albumin (3.9-5) g/dL Urine WBC (Auto) (0.0-6.0) /HPF Urine Creatinine (0.1-20.0) mg/dL
[2019-03-18] MEDS: AMIODARONE 900 MG in DEXTROSE 5% IN WATER 482 ML IV SCH (17:22)
[2019-03-18] MEDS ORDERED: AMIODARONE 150 MG in DEXTROSE 5% IN WATER 100 ML IV ONE (17:28)
[2019-03-18] MEDS: MIDODRINE 5 MG TAB PO SCH (20:09)
[2019-03-18] MEDS: HYDROCORTISONE SOD SUCC 100 MG/2 ML VIAL IV SCH (20:10)
--- NOTE | 2019-03-18 20:24 | Event Note ---
Pt seen and evaluated. Pt found to have poor prognosis. Advanced care planning conducted with Brother, Valente, as well as patients mother Romina. Discussed end of life care, code status, withdrawl of care, and risks and benefits of current care plan. Pt brother declined any additional advanced therapy. Discussed tachycardia, as well as risks and benefits of possible cardiac intervention. Pt brother declines and at this time he reports that he plans to sign DNR paperwork in the morning, prior to his departure. 60minutes dedicated to Advanced care planning. Pt family acknowledge understanding and agreement with current care plan.
[2019-03-19] MEDS: PHENYLEPHRINE 100 MG in SODIUM CHLORIDE 0.9% 90 ML IV SCH ×4 (00:39→12:18)
[2019-03-19 01:46] LABS: ABG Base Excess -5.7 mmol/L (-2.0-3.0); ABG HCO3 20.8 mmol/L (20.0-26.0); ABG Methemoglobin 0.7 % (0.0-1.5); ABG Oxygen Saturation 70.9 % (95.0-99.0); ABG PCO2 44.6 mm Hg; ABG PH 7.285 pH Units (7.350-7.450)
[2019-03-19] MEDS: NORepinephrine 8 MG in SODIUM CHLORIDE 0.9% 250ML 242 ML IV SCH ×6 (02:02→22:05)
[2019-03-19] MEDS: MIDODRINE 5 MG TAB PO SCH ×3 (04:01→19:59)
[2019-03-19] MEDS: HYDROCORTISONE SOD SUCC 100 MG/2 ML VIAL IV SCH ×3 (04:01→19:59)
[2019-03-19 04:32] LABS: Hematocrit 39.1 % (35.5-45.6); Hemoglobin 12.9 gm/dl (11.8-15.2); Mean Corpuscular HGB Conc 33 % (32-34); Mean Corpuscular Volume 87 fl (84-94); Red Blood Count 4.53 M/mm3 (3.65-5.03); Red Cell Distribution Width 15.8 % (13.2-15.2)
[2019-03-19 04:33] LABS: Platelet Count 35 K/mm3 (140-440)
[2019-03-19] MEDS: VASOPRESSIN 20 UNIT in SODIUM CHLORIDE 0.9% 100 ML IV SCH ×2 (04:43→15:45)
[2019-03-19] MEDS: DOPamine/D5W 800 MG/250 ML 800 MG/250 ML BAG IV SCH ×2 (04:44→11:23)
[2019-03-19 04:49] LABS: Albumin 2.3 g/dL (3.9-5)
[2019-03-19 05:01] LABS: Calcium 5.2 mg/dL (8.4-10.2)
[2019-03-19] MEDS: SODIUM BICARBONATE 150 MEQ in DEXTROSE 5% IN WATER 1,000 ML IV SCH (05:37)
[2019-03-19 06:10] LABS: ABG Base Excess -6.7 mmol/L (-2.0-3.0); ABG HCO3 20.2 mmol/L (20.0-26.0); ABG Methemoglobin 0.8 % (0.0-1.5); ABG Oxygen Saturation 54.4 % (95.0-99.0); ABG PCO2 45.5 mm Hg; ABG PH 7.265 pH Units (7.350-7.450)
[2019-03-19 06:13] LABS: ABG PO2 35.4 mm Hg (80.0-90.0)
[2019-03-19] MEDS: fentaNYL DRIP Premix 2,000 MCG/100 ML BAG IV SCH ×2 (07:54→15:05)
[2019-03-19] MEDS: MIDAZOLAM 100 MG in SODIUM CHLORIDE 0.9% 80 ML IV SCH (08:07)
--- NOTE | 2019-03-19 08:27 | XRay Report ---
CHEST 1 VIEW INDICATION / CLINICAL INFORMATION: follow up respiratory failure. COMPARISON: 03/18/2019 FINDINGS: SUPPORT DEVICES: Stable, satisfactory device positioning. HEART / MEDIASTINUM: No significant abnormality. LUNGS / PLEURA: Interval development of interstitial appearing opacity bilaterally with new atelectas is in the right lower lung No pneumothorax. ADDITIONAL FINDINGS: No significant additional findings. IMPRESSION: 1. Acute interstitial pulmonary edema Signer Name: Dano Armstrong MD Signed: 03/19/2019 8:23 AM Workstation Name: [id number]
--- NOTE | 2019-03-19 08:40 | Progress Note ---
Assessment and Plan 1. Acute kidney injury: Vasomotor RUBEN in the setting of shock / volume depletion / Rhabdo. Baseline renal function is unknown. Patient remain anuirc. CT abdomen was negative for obstructive nephropathy. Monitor renal function. Renal prognosis is guarded. Avoid nephrotoxic agents. Meds dosage based on GFR. Patient was started on hemodialysis yesterday due to worsening metabolic acidosis and hyperkalemia. He was able to tolerate hemodialysis today with 2 Lts fluid removal. His brother is aware of indications, risks and benefits of hemodialysis. 2. FEN: Hyperkalemia, HD today. Hyponatremia, monitor. Metabolic acidosis, 2/2 Lactic acidosis. Stop IV fluids due to volume overload. Monitor lytes. 3. Septic shock: On broad spectrum Abx. Followed by ID. Currently on Midodrine and 4 different IV pressors. Follow cultures. 4. Rhabdomyolysis: Continue IV fluids. Follow CK level. 5. SVT / V.tach: Followed by Cards. 6. Respiratory failure: On vent. 7. Multiple organ failure. 8. Elevated transaminases. 9. Encephalopathy: Followed by Neuro. Subjective Date of service: 03/19/19 Principal diagnosis: Septic Shock; Ac. hypoxemic resp failure; Renzo. PNA; Rhabdomyolysis; RUBEN Interval history: Patient was seen and examined at the bedside. Remain on the vent. Objective - Vital Signs Vital signs: Vital Signs - 12hr 03/18/19 03/18/19 03/18/19 20:45 21:00 21:15 Temperature Pulse Rate 99 H 101 H 101 H Pulse Rate [ From Monitor] Respiratory 16 17 17 Rate Blood Pressure 117/66 117/66 135/61 O2 Sat by Pulse 86 80 L 78 L Oximetry 03/18/19 03/18/19 03/18/19 21:31 21:45 22:01 Temperature Pulse Rate 94 H 95 H 94 H Pulse Rate [ From Monitor] Respiratory 17 18 19 Rate Blood Pressure 123/52 123/52 123/52 O2 Sat by Pulse 90 85 74 L Oximetry 03/18/19 03/18/19 03/18/19 22:15 22:31 22:45 Temperature Pulse Rate 94 H 94 H 100 H Pulse Rate [ From Monitor] Respiratory 18 18 19 Rate Blood Pressure 123/52 123/52 123/52 O2 Sat by Pulse 79 L 71 L 72 L Oximetry 03/18/19 03/18/19 03/18/19 23:01 23:15 23:31 Temperature Pulse Rate 94 H 95 H 98 H Pulse Rate [ From Monitor] Respiratory 18 19 19 Rate Blood Pressure 123/52 123/52 123/52 O2 Sat by Pulse 73 L 74 L 77 L Oximetry 03/18/19 03/19/19 03/19/19 23:45 00:00 00:01 Temperature 98.3 F Pulse Rate 92 H 93 H 93 H Pulse Rate [ 93 H From Monitor] Respiratory 18 19 19 Rate Blood Pressure 123/52 123/52 123/52 O2 Sat by Pulse 76 L 90 71 L Oximetry 03/19/19 03/19/19 03/19/19 00:11 00:15 00:31 Temperature Pulse Rate 95 H 95 H 93 H Pulse Rate [ From Monitor] Respiratory 18 20 18 Rate Blood Pressure 123/52 123/52 123/52 O2 Sat by Pulse 71 L 70 L 70 L Oximetry 03/19/19 03/19/19 03/19/19 00:45 01:01 01:15 Temperature Pulse Rate 96 H 93 H 90 Pulse Rate [ From Monitor] Respiratory 19 20 19 Rate Blood Pressure 123/52 123/52 123/52 O2 Sat by Pulse 69 L 66 L 66 L Oximetry 03/19/19 03/19/19 03/19/19 01:31 01:45 02:01 Temperature Pulse Rate 92 H 98 H 101 H Pulse Rate [ From Monitor] Respiratory 19 21 38 H Rate Blood Pressure 123/52 123/52 123/52 O2 Sat by Pulse 79 L 75 L 68 L Oximetry 03/19/19 03/19/19 03/19/19 02:15 02:31 02:45 Temperature Pulse Rate 101 H 98 H 96 H Pulse Rate [ From Monitor] Respiratory 25 H 22 19 Rate Blood Pressure 123/52 123/52 123/52 O2 Sat by Pulse 73 L 66 L 62 L Oximetry 03/19/19 03/19/19 03/19/19 03:01 03:15 03:31 Temperature Pulse Rate 106 H 97 H 100 H Pulse Rate [ From Monitor] Respiratory 20 21 22 Rate Blood Pressure 123/52 123/52 123/52 O2 Sat by Pulse 62 L 64 L 63 L Oximetry 03/19/19 03/19/19 03/19/19 03:45 04:00 04:01 Temperature 98.6 F Pulse Rate 96 H 100 H 104 H Pulse Rate [ 100 H From Monitor] Respiratory 24 23 25 H Rate Blood Pressure 123/52 123/52 O2 Sat by Pulse 63 L 66 L Oximetry 03/19/19 03/19/19 03/19/19 04:15 04:20 04:31 Temperature Pulse Rate 98 H 98 H 99 H Pulse Rate [ From Monitor] Respiratory 27 H 27 H Rate Blood Pressure 123/52 123/52 123/52 O2 Sat by Pulse 70 L 70 L 71 L Oximetry 03/19/19 03/19/19 03/19/19 04:45 05:01 05:15 Temperature Pulse Rate 120 H 97 H 119 H Pulse Rate [ From Monitor] Respiratory 30 H 30 H 31 H Rate Blood Pressure 123/52 123/52 123/52 O2 Sat by Pulse 53 L 57 L 48 L Oximetry 03/19/19 03/19/19 03/19/19 05:31 05:45 06:01 Temperature Pulse Rate 91 H 95 H 93 H Pulse Rate [ From Monitor] Respiratory 27 H 25 H 27 H Rate Blood Pressure 123/52 123/52 123/52 O2 Sat by Pulse 58 L 62 L 56 L Oximetry 03/19/19 03/19/19 03/19/19 06:15 06:27 06:31 Temperature Pulse Rate 100 H 93 H 102 H Pulse Rate [ From Monitor] Respiratory 25 H 33 H Rate Blood Pressure 123/52 80/40 123/52 O2 Sat by Pulse 41 L 56 L 53 L Oximetry 03/19/19 03/19/19 03/19/19 06:45 07:01 07:15 Temperature Pulse Rate 88 91 H 92 H Pulse Rate [ From Monitor] Respiratory 30 H 28 H 30 H Rate Blood Pressure 123/52 123/52 123/52 O2 Sat by Pulse 58 L 67 L 71 L Oximetry 03/19/19 08:30 Temperature Pulse Rate 98 H Pulse Rate [ From Monitor] Respiratory Rate Blood Pressure 85/42 O2 Sat by Pulse 60 L Oximetry - General Appearance General appearance: well-developed, well-nourished, appears stated age, obese, intubated, other (on vent, R IJ temp catheter) EENT: ATNC Neck: supple, other (Trachea midline) Respiratory: Present: Clear to Ascultation Cardiology: regular, S1S2 Gastrointestinal: no tenderness, obese Integumentary: no rash Neurologic: obtunded Musculoskeletal: other (no edema) - Lab 03/19/19 04:00 03/19/19 04:00 Most recent lab results ABG pH 7.265 pH Units (7.350-7.450) L 03/19/19 05:35 ABG pCO2 45.5 mm Hg 03/19/19 05:35 ABG pO2 35.4 mm Hg (80.0-90.0) L* 03/19/19 05:35 ABG HCO3 20.2 mmol/L (20.0-26.0) 03/19/19 05:35 ABG O2 Saturation 54.4 % (95.0-99.0) L 03/19/19 05:35 Calcium 5.2 mg/dL (8.4-10.2) L* D 03/19/19 04:00 Phosphorus 7.30 mg/dL (2.5-4.5) H 03/17/19 03:45 Magnesium 2.40 mg/dL (1.7-2.3) H 03/18/19 08:40 106.6 mg/dL (0.1-20.0) H 03/17/19 16:05 95 mmol/L 03/17/19 16:05 Medications & Allergies - Medications Allergies/Adverse Reactions: Allergies No Known Allergies Allergy (Unverified 03/16/19 17:17) Home Medications: Home Medications Medication Instructions Recorded Confirmed Last Taken Type Unobtainable 03/18/19 03/18/19 Unknown History Active Medications: Generic Name Dose Route Start Last Admin Trade Name Freq PRN Reason Stop Dose Admin Acetaminophen 650 mg 03/16/19 22:22 03/17/19 18:49 Tylenol MA 650 mg Q4H PRN Administration Fever >101 Lipase/Protease/Amylase 1 each 03/17/19 14:[address] 10,500 Unit FEEDTUBE PRN PRN For Clogged Feeding Tube Famotidine 10 mg 03/17/19 14:00 03/18/19 21:42 Pepcid PO 10 mg BID PAOLO Administration Fentanyl 50 mcg 03/16/19 16:06 03/16/19 17:02 Sublimaze IV 50 mcg Q10MIN PRN Administration ANALGESIA Hydrocortisone Sodium Succinate 100 mg 03/18/19 20:00 03/19/19 04:01 Solu-Cortef IV 100 mg Q8H PAOLO Administration Hydrophilic Ointment 1 applic 03/16/19 15:50 Vaseline Lip Therapy TP Q2HR PRN Dry Lips Midazolam HCl 100 mg/ Sodium 100 mls @ 2 mls/hr 03/16/19 16:00 03/19/19 08:29 Chloride IV 3 mg/hr TITR PAOLO 3 mls/hr Titration Protocol 2 MG/HR Fentanyl Citrate 2,000 mcg in 100 mls @ 6.804 mls/hr 03/16/19 17:00 03/19/19 07:54 Fentanyl Drip Premix IV 2 mcg/kg/hr TITR PAOLO 13.608 mls/hr Administration Protocol 1 MCG/KG/HR Vasopressin 20 unit/ Sodium 101 mls @ 9.09 mls/hr 03/16/19 23:45 03/19/19 04:43 Chloride IV 0.03 units/min TITR PAOLO 9.09 mls/hr Administration Protocol 0.03 UNITS/MIN Norepinephrine 8 mg/ Sodium 250 mls @ 3.75 mls/hr 03/17/19 02:00 03/19/19 05:39 Chloride IV 30 mcg/min TITR PAOLO 56.25 mls/hr Administration Protocol 2 MCG/MIN Phenylephrine HCl 100 mg/ 100 mls @ 3 mls/hr 03/17/19 02:30 03/19/19 08:36 Sodium Chloride IV 400 mcg/min TITR PAOLO 24 mls/hr Administration Protocol 50 MCG/MIN Clindamycin HCl 900 mg in 50 mls @ 100 mls/hr 03/17/19 14:00 03/19/19 05:22 Cleocin 900 Mg/50 Ml IV 100 mls/hr Q8HR PAOLO Administration Protocol Ceftriaxone Sodium 2 gm in 100 mls @ 200 mls/hr 03/17/19 12:00 03/18/19 22:01 Rocephin/Ns 2 Gm/100 Ml IV 200 mls/hr Q12HR PAOLO Administration Protocol Doxycycline Hyclate 100 mg/ 250 mls @ 250 mls/hr 03/17/19 12:00 03/18/19 21:42 Sodium Chloride IV 250 mls/hr Q12HR PAOLO Administration Protocol Sodium Bicarbonate 150 meq/ 1,150 mls @ 150 mls/hr 03/17/19 14:00 03/19/19 05:37 Dextrose IV 03/20/19 21:39 150 mls/hr DIRECT PAOLO Administration Dopamine HCl/Dextrose 800 mg in 250 mls @ 5.103 mls/hr 03/17/19 23:00 03/19/19 06:27 Intropin Drip 800 Mg/D5w 250 Ml IV 20 mcg/kg/min TITR PAOLO 51.029 mls/hr Titration Protocol 2 MCG/KG/MIN Sodium Chloride 100 mls @ 999 mls/hr 03/18/19 13:16 Nacl 0.9% IV NEYMAR PRN Hypotension Amiodarone HCl 900 mg/ 500 mls @ 33.333 mls/hr 03/18/19 17:00 03/18/19 23:26 Dextrose IV 0.5 mg/min DIRECT PAOLO 16.667 mls/hr Infusion Protocol 1 MG/MIN Midazolam HCl 2 mg 03/16/19 15:50 Versed IV Q10MIN PRN Sedation Midodrine 10 mg 03/18/19 20:00 03/19/19 04:01 Proamatine PO 10 mg Q8H PAOLO Administration Multi-Ingred Cream/Lotion/Oil/Oint 1 applic 03/16/19 15:50 Artificial Tears Ophth Oint OU Q4HR PRN Dry Eye(s) Ondansetron HCl 4 mg 03/16/19 22:21 Zofran IV Q8H PRN Nausea And Vomiting Simple Syrup 15 ml 03/17/19 14:45 Simple Syrup FEEDTUBE PRN PRN Hypoglycemia Simple Syrup 30 ml 03/17/19 14:45 Simple Syrup FEEDTUBE PRN PRN Hypoglycemia Sodium Bicarbonate 325 mg 03/17/19 14:45 Sodium Bicarbonate FEEDTUBE PRN PRN For Clogged Feeding Tube
--- NOTE | 2019-03-19 09:02 | Progress Note ---
Assessment and Plan Severe sepsis with shock. Right axilla abscess versus localized pannus/fatty collection. Acute hypoxemic respiratory failure, on mechanical ventilator support. Likely aspiration pneumonia, bilateral. Morbid obesity. Rhabdomyolysis. Acute kidney injury. Leukocytosis. Morbid obesity. Metabolic acidosis. Lactic acidosis. Hypomagnesemia. Elevated serum transaminases/possible shock liver. Acute encephalopathy, toxic metabolic versus anoxic - appreciate nephrology input - trial of APRV mode succesful so far and will continue while keeping close eye on ventilation (Ph 40, Plow 5, Th 3.5s, Tlow 0.5s) - tolerated HD/UF well today - continue to wean vasopressors for target MAP > 65 mmHg (remains on n eosynephrine, levophed, vasopressin and dopamine) - VAP bundle addressed - continue to wean FiO2 for sats > 90% - continue daily SAT's and SBT assessment as tolerated - target sedation for RASS 0 to -1 (Hold while on APRV to allow spontaneous breaths) - prn analgesia per CPOT score - continue HD/UF per nephrology prescription and for toxin and volume control - prn supportive blood transfusions to keep serum Hb > 7.0 - Monitor hemodynamics closely - Transfuse PRBC's to keep HgB > 7g/dL - continue enteral nutrition as tolerated (NPO for now; trickle feeding and advance once more stable) - continue empiric broad spectrum antiinfective's per ID recommendations (de- escalate based on clinical and microbiologic data) - continue mobility protocols and off loading as tolerated for pressure ulcer prophylaxis - continue to avoid nephrotoxins, adjust all medications for GFR and CRCL - continue GI & VTE prophylaxis with - accuchecks with glycemic control per SSI for target BG of 140-180 mg/dl acutely - continue other care per attending / other consultants ... attempted to reach his brother on the phone unsuccessfully to update him ... re-evaluate in am & prn CONDITION: CRITICAL PROGNOSIS: VERY GUARDED CODE STATUS: FULL CODE Discussed extensively with RT/RN and care team in ICU IDT rounds The high probability of a clinically significant, sudden or life threatening deterioration of the [respiratory, renal and Cardiac] system's' required my full and direct attention, intervention and personal management. The aggregate critical care time was 34 minutes. This time is in addition to time spent performing reported procedures but includes the following: [x] Data Review and interpretation [x] Patient assessment and monitoring of vital signs [x] Documentation [x] Medication orders and management Subjective Date of service: 03/19/19 Principal diagnosis: Septic Shock; Ac. hypoxemic resp failure; Renzo. PNA; Rhabdomyolysis; RUBEN Interval history: Patient is seen today for: Severe sepsis with shock; Acute hypoxemic respiratory failure; Aspiration pneumonia; Morbid obesity; Rhabdomyolysis; Acute kidney injury; Morbid obesity; Elevated serum transaminases/possible shock liver; Acute encephalopathy (Toxic/Met) Seen and examined at bedside; 24hour events reviewed; nursing and respiratory care staff consulted; no adverse overnight events reported to me; resting peacefully in bed; remains maxed out on 4 vasopressors; developed A-fib with RVR and now on amiodarone; pulmonary edema has developed Objective Vital Signs - 12hr 03/18/19 03/18/19 03/18/19 21:15 21:31 21:45 Temperature Pulse Rate 101 H 94 H 95 H Pulse Rate [ From Monitor] Respiratory 17 17 18 Rate Blood Pressure 135/61 123/52 123/52 O2 Sat by Pulse 78 L 90 85 Oximetry 03/18/19 03/18/19 03/18/19 22:01 22:15 22:31 Temperature Pulse Rate 94 H 94 H 94 H Pulse Rate [ From Monitor] Respiratory 19 18 18 Rate Blood Pressure 123/52 123/52 123/52 O2 Sat by Pulse 74 L 79 L 71 L Oximetry 03/18/19 03/18/19 03/18/19 22:45 23:01 23:15 Temperature Pulse Rate 100 H 94 H 95 H Pulse Rate [ From Monitor] Respiratory 19 18 19 Rate Blood Pressure 123/52 123/52 123/52 O2 Sat by Pulse 72 L 73 L 74 L Oximetry 03/18/19 03/18/19 03/19/19 23:31 23:45 00:00 Temperature 98.3 F Pulse Rate 98 H 92 H 93 H Pulse Rate [ 93 H From Monitor] Respiratory 19 18 19 Rate Blood Pressure 123/52 123/52 123/52 O2 Sat by Pulse 77 L 76 L 90 Oximetry 03/19/19 03/19/19 03/19/19 00:01 00:11 00:15 Temperature Pulse Rate 93 H 95 H 95 H Pulse Rate [ From Monitor] Respiratory 19 18 20 Rate Blood Pressure 123/52 123/52 123/52 O2 Sat by Pulse 71 L 71 L 70 L Oximetry 03/19/19 03/19/19 03/19/19 00:31 00:45 01:01 Temperature Pulse Rate 93 H 96 H 93 H Pulse Rate [ From Monitor] Respiratory 18 19 20 Rate Blood Pressure 123/52 123/52 123/52 O2 Sat by Pulse 70 L 69 L 66 L Oximetry 03/19/19 03/19/19 03/19/19 01:15 01:31 01:45 Temperature Pulse Rate 90 92 H 98 H Pulse Rate [ From Monitor] Respiratory 19 19 21 Rate Blood Pressure 123/52 123/52 123/52 O2 Sat by Pulse 66 L 79 L 75 L Oximetry 03/19/19 03/19/19 03/19/19 02:01 02:15 02:31 Temperature Pulse Rate 101 H 101 H 98 H Pulse Rate [ From Monitor] Respiratory 38 H 25 H 22 Rate Blood Pressure 123/52 123/52 123/52 O2 Sat by Pulse 68 L 73 L 66 L Oximetry 03/19/19 03/19/19 03/19/19 02:45 03:01 03:15 Temperature Pulse Rate 96 H 106 H 97 H Pulse Rate [ From Monitor] Respiratory 19 20 21 Rate Blood Pressure 123/52 123/52 123/52 O2 Sat by Pulse 62 L 62 L 64 L Oximetry 03/19/19 03/19/19 03/19/19 03:31 03:45 04:00 Temperature 98.6 F Pulse Rate 100 H 96 H 100 H Pulse Rate [ 100 H From Monitor] Respiratory 22 24 23 Rate Blood Pressure 123/52 123/52 O2 Sat by Pulse 63 L 63 L Oximetry 03/19/19 03/19/19 03/19/19 04:01 04:15 04:20 Temperature Pulse Rate 104 H 98 H 98 H Pulse Rate [ From Monitor] Respiratory 25 H 27 H Rate Blood Pressure 123/52 123/52 123/52 O2 Sat by Pulse 66 L 70 L 70 L Oximetry 03/19/19 03/19/19 03/19/19 04:31 04:45 05:01 Temperature Pulse Rate 99 H 120 H 97 H Pulse Rate [ From Monitor] Respiratory 27 H 30 H 30 H Rate Blood Pressure 123/52 123/52 123/52 O2 Sat by Pulse 71 L 53 L 57 L Oximetry 03/19/19 03/19/19 03/19/19 05:15 05:31 05:45 Temperature Pulse Rate 119 H 91 H 95 H Pulse Rate [ From Monitor] Respiratory 31 H 27 H 25 H Rate Blood Pressure 123/52 123/52 123/52 O2 Sat by Pulse 48 L 58 L 62 L Oximetry 03/19/19 03/19/19 03/19/19 06:01 06:15 06:27 Temperature Pulse Rate 93 H 100 H 93 H Pulse Rate [ From Monitor] Respiratory 27 H 25 H Rate Blood Pressure 123/52 123/52 80/40 O2 Sat by Pulse 56 L 41 L 56 L Oximetry 03/19/19 03/19/19 03/19/19 06:31 06:45 07:01 Temperature Pulse Rate 102 H 88 91 H Pulse Rate [ From Monitor] Respiratory 33 H 30 H 28 H Rate Blood Pressure 123/52 123/52 123/52 O2 Sat by Pulse 53 L 58 L 67 L Oximetry 03/19/19 03/19/19 07:15 08:30 Temperature Pulse Rate 92 H 98 H Pulse Rate [ From Monitor] Respiratory 30 H Rate Blood Pressure 123/52 85/42 O2 Sat by Pulse 71 L 60 L Oximetry Constitutional: other (middle aged morbidly obese CM, normocephalic with incresed respiratory effort on MVS) Eyes: icteric ENT: oropharynx moist, other (ETT 23-24 cm PEDRO) Neck: supple, no lymphadenopathy, no JVD Effort: mildly labored Ascultation: Bilateral: diminished breath sounds, rales Percussion: Bilateral: not dull Cardiovascular: regular rate and rhythm Gastrointestinal: hypoactive bowel sounds, soft, non-tender, non-distended Integumentary: normal Extremities: no cyanosis, pink and warm, pulses normal, no ischemia or petec hiae, edema Neurologic: non-focal exam (grossly), pupils equal and round, CN II-XII normal, motor strength normal and Psychiatric: other (inable to assess) CBC and BMP: 03/20/19 09:30 03/20/19 09:30 ABG, PT/INR, D-dimer: ABG POC ABG pH 7.345 (7.35-7.45) L 03/18/19 18:20 ABG pH 7.265 pH Units (7.350-7.450) L 03/19/19 05:35 POC ABG pCO2 36.9 (35-45) 03/18/19 18:20 ABG pCO2 45.5 mm Hg 03/19/19 05:35 POC ABG pO2 59 (80-105) L 03/18/19 18:20 ABG pO2 35.4 mm Hg (80.0-90.0) L* 03/19/19 05:35 POC ABG HCO3 20.2 (22-26 mml/L) 03/18/19 18:20 POC ABG Total CO2 21 (23-27mmol/L) 03/18/19 18:20 POC ABG O2 Sat 89 03/18/19 18:20 ABG O2 Saturation 54.4 % (95.0-99.0) L 03/19/19 05:35 PT/INR, D-dimer PT 15.9 Sec. (12.2-14.9) H 03/16/19 17:05 INR 1.30 (0.87-1.13) H 03/16/19 17:05 Abnormal lab findings: Abnormal Labs 03/16/19 03/16/19 03/16/19 16:03 16:05 16:59 WBC 27.0 H RBC 5.55 H Hgb 15.7 H Hct 47.1 H RDW Plt Count 75 L Seg Neuts % (Manual) 85.0 H Lymphocytes % (Manual) 2.0 L Monocytes % (Manual) Seg Neutrophils # Man 23.0 H Lymphocytes # (Manual) 0.5 L Monocytes # (Manual) PT INR POC ABG pH 7.297 L ABG pH POC ABG pCO2 33.0 L POC ABG pO2 ABG pO2 ABG O2 Saturation ABG Base Excess ABG Hemoglobin Oxyhemoglobin Sodium 127 L Potassium Chloride 87.8 L Carbon Dioxide 17 L BUN 49 H Creatinine 5.8 H Glucose 150 H POC Glucose Lactic Acid Calcium 6.6 L Phosphorus Magnesium 1.10 L Total Bilirubin Direct Bilirubin AST ALT Alkaline Phosphatase Total Creatine Kinase 98553 H CK-MB (CK-2) Troponin T C-Reactive Protein Total Protein Albumin Triglycerides LDL Cholesterol Direct HDL Cholesterol Free T4 Urine WBC (Auto) Urine Creatinine Salicylates Acetaminophen 03/16/19 03/16/19 03/16/19 17:05 17:05 17:05 WBC RBC Hgb Hct RDW Plt Count Seg Neuts % (Manual) Lymphocytes % (Manual) Monocytes % (Manual) Seg Neutrophils # Man Lymphocytes # (Manual) Monocytes # (Manual) PT INR POC ABG pH ABG pH POC ABG pCO2 POC ABG pO2 ABG pO2 ABG O2 Saturation ABG Base Excess ABG Hemoglobin Oxyhemoglobin Sodium Potassium Chloride Carbon Dioxide BUN Creatinine Glucose POC Glucose Lactic Acid 5.10 H* Calcium Phosphorus Magnesium Total Bilirubin Direct Bilirubin AST ALT Alkaline Phosphatase Total Creatine Kinase 09299 H CK-MB (CK-2) 83.1 H Troponin T C-Reactive Protein Total Protein Albumin Triglycerides LDL Cholesterol Direct HDL Cholesterol Free T4 0.72 L Urine WBC (Auto) Urine Creatinine Salicylates Acetaminophen 03/16/19 03/16/19 03/16/19 17:05 17:05 17:05 WBC RBC Hgb Hct RDW Plt Count Seg Neuts % (Manual) Lymphocytes % (Manual) Monocytes % (Manual) Seg Neutrophils # Man Lymphocytes # (Manual) Monocytes # (Manual) PT 15.9 H INR 1.30 H POC ABG pH ABG pH POC ABG pCO2 POC ABG pO2 ABG pO2 ABG O2 Saturation ABG Base Excess ABG Hemoglobin Oxyhemoglobin Sodium Potassium Chloride Carbon Dioxide BUN Creatinine Glucose POC Glucose Lactic Acid Calcium Phosphorus Magnesium Total Bilirubin Direct Bilirubin AST ALT Alkaline Phosphatase Total Creatine Kinase CK-MB (CK-2) Troponin T C-Reactive Protein Total Protein Albumin Triglycerides LDL Cholesterol Direct HDL Cholesterol Free T4 Urine WBC (Auto) Urine Creatinine Salicylates < 0.3 L Acetaminophen < 5.0 L 03/16/19 03/16/19 03/16/19 17:05 20:35 21:45 WBC RBC Hgb Hct RDW Plt Count Seg Neuts % (Manual) Lymphocytes % (Manual) Monocytes % (Manual) Seg Neutrophils # Man Lymphocytes # (Manual) Monocytes # (Manual) PT INR POC ABG pH ABG pH POC ABG pCO2 POC ABG pO2 ABG pO2 ABG O2 Saturation ABG Base Excess ABG Hemoglobin Oxyhemoglobin Sodium Potassium Chloride Carbon Dioxide BUN Creatinine Glucose POC Glucose Lactic Acid 3.30 H* 3.30 H* Calcium Phosphorus Magnesium Total Bilirubin 6.20 H Direct Bilirubin 5.9 H AST 800 H ALT 120 H Alkaline Phosphatase Total Creatine Kinase CK-MB (CK-2) Troponin T C-Reactive Protein Total Protein 4.4 L Albumin 2.4 L Triglycerides LDL Cholesterol Direct HDL Cholesterol Free T4 Urine WBC (Auto) Urine Creatinine Salicylates Acetaminophen 03/16/19 03/16/19 03/17/19 22:32 Unknown 03:45 WBC RBC Hgb Hct RDW Plt Count Seg Neuts % (Manual) Lymphocytes % (Manual) Monocytes % (Manual) Seg Neutrophils # Man Lymphocytes # (Manual) Monocytes # (Manual) PT INR POC ABG pH ABG pH POC ABG pCO2 POC ABG pO2 ABG pO2 ABG O2 Saturation ABG Base Excess ABG Hemoglobin Oxyhemoglobin Sodium 131 L Potassium Chloride 88.9 L Carbon Dioxide BUN 53 H Creatinine 7.1 H Glucose POC Glucose Lactic Acid 3.00 H* Calcium 5.4 L* D Phosphorus 7.30 H Magnesium 1.60 L Total Bilirubin 5.90 H Direct Bilirubin AST 801 H ALT 109 H Alkaline Phosphatase Total Creatine Kinase 25456 H CK-MB (CK-2) Troponin T 0.047 H D C-Reactive Protein Total Protein 4.5 L Albumin 2.0 L Triglycerides 395 H LDL Cholesterol Direct 10 L HDL Cholesterol 7 L Free T4 Urine WBC (Auto) Urine Creatinine Salicylates Acetaminophen 03/17/19 03/17/19 03/17/19 03:45 03:45 05:47 WBC RBC Hgb Hct RDW Plt Count Seg Neuts % (Manual) Lymphocytes % (Manual) Monocytes % (Manual) Seg Neutrophils # Man Lymphocytes # (Manual) Monocytes # (Manual) PT INR POC ABG pH 7.193 L ABG pH POC ABG pCO2 45.2 H POC ABG pO2 65 L ABG pO2 ABG O2 Saturation ABG Base Excess ABG Hemoglobin Oxyhemoglobin Sodium Potassium Chloride Carbon Dioxide BUN Creatinine Glucose POC Glucose Lactic Acid 4.10 H* Calcium Phosphorus Magnesium Total Bilirubin Direct Bilirubin AST ALT Alkaline Phosphatase Total Creatine Kinase 61958 H CK-MB (CK-2) 41.5 H Troponin T 0.054 H C-Reactive Protein Total Protein Albumin Triglycerides LDL Cholesterol Direct HDL Cholesterol Free T4 Urine WBC (Auto) Urine Creatinine Salicylates Acetaminophen 03/17/19 03/17/19 03/17/19 07:16 07:16 11:52 WBC RBC Hgb Hct RDW Plt Count Seg Neuts % (Manual) Lymphocytes % (Manual) Monocytes % (Manual) Seg Neutrophils # Man Lymphocytes # (Manual) Monocytes # (Manual) PT INR POC ABG pH ABG pH POC ABG pCO2 POC ABG pO2 ABG pO2 ABG O2 Saturation ABG Base Excess ABG Hemoglobin Oxyhemoglobin Sodium Potassium Chloride Carbon Dioxide BUN Creatinine Glucose POC Glucose Lactic Acid 5.50 H* 8.20 H* Calcium Phosphorus Magnesium Total Bilirubin Direct Bilirubin AST ALT Alkaline Phosphatase Total Creatine Kinase 81911 H CK-MB (CK-2) 54.3 H Troponin T 0.058 H C-Reactive Protein Total Protein Albumin Triglycerides LDL Cholesterol Direct HDL Cholesterol Free T4 Urine WBC (Auto) Urine Creatinine Salicylates Acetaminophen 03/17/19 03/17/19 03/17/19 12:51 13:01 14:37 WBC RBC Hgb Hct RDW Plt Count Seg Neuts % (Manual) Lymphocytes % (Manual) Monocytes % (Manual) Seg Neutrophils # Man Lymphocytes # (Manual) Monocytes # (Manual) PT INR POC ABG pH 7.154 L ABG pH POC ABG pCO2 34.3 L POC ABG pO2 73 L ABG pO2 ABG O2 Saturation ABG Base Excess ABG Hemoglobin Oxyhemoglobin Sodium Potassium Chloride Carbon Dioxide BUN Creatinine Glucose POC Glucose 60 L Lactic Acid Calcium Phosphorus Magnesium Total Bilirubin Direct Bilirubin AST ALT Alkaline Phosphatase Total Creatine Kinase CK-MB (CK-2) Troponin T C-Reactive Protein 24.90 H Total Protein Albumin Triglycerides LDL Cholesterol Direct HDL Cholesterol Free T4 Urine WBC (Auto) Urine Creatinine Salicylates Acetaminophen 03/17/19 03/17/19 03/17/19 14:37 14:37 16:05 WBC 29.3 H RBC Hgb Hct RDW 15.8 H Plt Count 45 L Seg Neuts % (Manual) 81.0 H Lymphocytes % (Manual) 1.0 L Monocytes % (Manual) 15.0 H Seg Neutrophils # Man 23.7 H Lymphocytes # (Manual) 0.3 L Monocytes # (Manual) 4.4 H PT INR POC ABG pH ABG pH POC ABG pCO2 POC ABG pO2 ABG pO2 ABG O2 Saturation ABG Base Excess ABG Hemoglobin Oxyhemoglobin Sodium Potassium Chloride Carbon Dioxide BUN Creatinine Glucose POC Glucose Lactic Acid 4.90 H* Calcium Phosphorus Magnesium Total Bilirubin Direct Bilirubin AST ALT Alkaline Phosphatase Total Creatine Kinase CK-MB (CK-2) Troponin T C-Reactive Protein Total Protein Albumin Triglycerides LDL Cholesterol Direct HDL Cholesterol Free T4 Urine WBC (Auto) 30.0 H Urine Creatinine Salicylates Acetaminophen 03/17/19 03/17/19 03/18/19 16:05 17:02 05:12 WBC RBC Hgb Hct RDW Plt Count Seg Neuts % (Manual) Lymphocytes % (Manual) Monocytes % (Manual) Seg Neutrophils # Man Lymphocytes # (Manual) Monocytes # (Manual) PT INR POC ABG pH 7.183 L 7.257 L ABG pH POC ABG pCO2 31.6 L POC ABG pO2 65 L 69 L ABG pO2 ABG O2 Saturation ABG Base Excess ABG Hemoglobin Oxyhemoglobin Sodium Potassium Chloride Carbon Dioxide BUN Creatinine Glucose POC Glucose Lactic Acid Calcium Phosphorus Magnesium Total Bilirubin Direct Bilirubin AST ALT Alkaline Phosphatase Total Creatine Kinase CK-MB (CK-2) Troponin T C-Reactive Protein Total Protein Albumin Triglycerides LDL Cholesterol Direct HDL Cholesterol Free T4 Urine WBC (Auto) Urine Creatinine 106.6 H Salicylates Acetaminophen 03/18/19 03/18/19 03/18/19 05:16 05:53 06:57 WBC RBC Hgb Hct RDW Plt Count Seg Neuts % (Manual) Lymphocytes % (Manual) Monocytes % (Manual) Seg Neutrophils # Man Lymphocytes # (Manual) Monocytes # (Manual) PT INR POC ABG pH ABG pH POC ABG pCO2 POC ABG pO2 ABG pO2 ABG O2 Saturation ABG Base Excess ABG Hemoglobin Oxyhemoglobin Sodium Potassium Chloride Carbon Dioxide BUN Creatinine Glucose POC Glucose 141 H Lactic Acid 5.00 H* 5.00 H* Calcium Phosphorus Magnesium Total Bilirubin Direct Bilirubin AST ALT Alkaline Phosphatase Total Creatine Kinase CK-MB (CK-2) Troponin T C-Reactive Protein Total Protein Albumin Triglycerides LDL Cholesterol Direct HDL Cholesterol Free T4 Urine WBC (Auto) Urine Creatinine Salicylates Acetaminophen 03/18/19 03/18/19 03/18/19 08:40 08:40 12:33 WBC 31.7 H RBC Hgb Hct RDW 15.5 H Plt Count 35 L Seg Neuts % (Manual) Lymphocytes % (Manual) Monocytes % (Manual) Seg Neutrophils # Man Lymphocytes # (Manual) Monocytes # (Manual) PT INR POC ABG pH ABG pH POC ABG pCO2 POC ABG pO2 ABG pO2 ABG O2 Saturation ABG Base Excess ABG Hemoglobin Oxyhemoglobin Sodium 132 L Potassium 5.5 H D Chloride 88.5 L Carbon Dioxide 18 L BUN 71 H Creatinine 8.1 H Glucose 205 H POC Glucose 129 H Lactic Acid Calcium 4.1 L* D Phosphorus Magnesium 2.40 H Total Bilirubin 7.50 H Direct Bilirubin AST 1088 H ALT 159 H Alkaline Phosphatase 190 H Total Creatine Kinase 971907 H CK-MB (CK-2) Troponin T C-Reactive Protein Total Protein 4.7 L Albumin 1.8 L Triglycerides LDL Cholesterol Direct HDL Cholesterol Free T4 Urine WBC (Auto) Urine Creatinine Salicylates Acetaminophen 03/18/19 03/18/19 03/18/19 12:50 13:19 13:19 WBC RBC Hgb Hct RDW Plt Count Seg Neuts % (Manual) Lymphocytes % (Manual) Monocytes % (Manual) Seg Neutrophils # Man Lymphocytes # (Manual) Monocytes # (Manual) PT INR POC ABG pH 7.282 L ABG pH POC ABG pCO2 POC ABG pO2 67 L ABG pO2 ABG O2 Saturation ABG Base Excess ABG Hemoglobin Oxyhemoglobin Sodium Potassium Chloride Carbon Dioxide BUN Creatinine Glucose POC Glucose Lactic Acid 3.30 H* Calcium 4.2 L* Phosphorus Magnesium Total Bilirubin Direct Bilirubin AST ALT Alkaline Phosphatase Total Creatine Kinase 869914 H CK-MB (CK-2) Troponin T C-Reactive Protein Total Protein Albumin Triglycerides LDL Cholesterol Direct HDL Cholesterol Free T4 Urine WBC (Auto) Urine Creatinine Salicylates Acetaminophen 03/18/19 03/18/19 03/18/19 16:50 18:11 18:20 WBC RBC Hgb Hct RDW Plt Count Seg Neuts % (Manual) Lymphocytes % (Manual) Monocytes % (Manual) Seg Neutrophils # Man Lymphocytes # (Manual) Monocytes # (Manual) PT INR POC ABG pH 7.345 L ABG pH POC ABG pCO2 POC ABG pO2 59 L 59 L ABG pO2 ABG O2 Saturation ABG Base Excess ABG Hemoglobin Oxyhemoglobin Sodium Potassium Chloride Carbon Dioxide BUN Creatinine Glucose POC Glucose 151 H Lactic Acid Calcium Phosphorus Magnesium Total Bilirubin Direct Bilirubin AST ALT Alkaline Phosphatase Total Creatine Kinase CK-MB (CK-2) Troponin T C-Reactive Protein Total Protein Albumin Triglycerides LDL Cholesterol Direct HDL Cholesterol Free T4 Urine WBC (Auto) Urine Creatinine Salicylates Acetaminophen 03/18/19 03/19/19 03/19/19 23:39 01:42 04:00 WBC 36.5 H RBC Hgb Hct RDW 15.8 H Plt Count 35 L Seg Neuts % (Manual) Lymphocytes % (Manual) Monocytes % (Manual) Seg Neutrophils # Man Lymphocytes # (Manual) Monocytes # (Manual) PT INR POC ABG pH ABG pH 7.285 L POC ABG pCO2 POC ABG pO2 ABG pO2 44.0 L ABG O2 Saturation 70.9 L ABG Base Excess -5.7 L ABG Hemoglobin 11.9 L Oxyhemoglobin 69.6 L Sodium Potassium Chloride Carbon Dioxide BUN Creatinine Glucose POC Glucose 152 H Lactic Acid Calcium Phosphorus Magnesium Total Bilirubin Direct Bilirubin AST ALT Alkaline Phosphatase Total Creatine Kinase CK-MB (CK-2) Troponin T C-Reactive Protein Total Protein Albumin Triglycerides LDL Cholesterol Direct HDL Cholesterol Free T4 Urine WBC (Auto) Urine Creatinine Salicylates Acetaminophen 03/19/19 03/19/19 03/19/19 04:00 05:35 05:49 WBC RBC Hgb Hct RDW Plt Count Seg Neuts % (Manual) Lymphocytes % (Manual) Monocytes % (Manual) Seg Neutrophils # Man Lymphocytes # (Manual) Monocytes # (Manual) PT INR POC ABG pH ABG pH 7.265 L POC ABG pCO2 POC ABG pO2 ABG pO2 35.4 L* ABG O2 Saturation 54.4 L ABG Base Excess -6.7 L ABG Hemoglobin 12.9 L Oxyhemoglobin 53.4 L Sodium 132 L Potassium 5.7 H Chloride 89.8 L Carbon Dioxide 19 L BUN 62 H Creatinine 6.4 H Glucose 151 H POC Glucose 154 H Lactic Acid Calcium 5.2 L* D Phosphorus Magnesium Total Bilirubin 7.80 H Direct Bilirubin AST 682 H ALT 130 H Alkaline Phosphatase 167 H Total Creatine Kinase CK-MB (CK-2) Troponin T C-Reactive Protein Total Protein 4.8 L Albumin 2.3 L Triglycerides LDL Cholesterol Direct HDL Cholesterol Free T4 Urine WBC (Auto) Urine Creatinine Salicylates Acetaminophen Allied health notes reviewed: nursing
[2019-03-19] MEDS ORDERED: SODIUM CHLORIDE 0.9% 100 ML IV PRN (09:28)
[2019-03-19] MEDS: FAMOTIDINE 10 MG TAB PO SCH ×2 (09:45→21:26)
[2019-03-19] MEDS: DOXYCYCLINE HYCLATE 100 MG in SODIUM CHLORIDE 0.9% 250ML 250 ML IV SCH ×2 (09:47→22:30)
[2019-03-19] MEDS: cefTRIAXone/NS 2 GM/100 ML 2 GM/100 ML BAG IV SCH ×2 (09:48→22:06)
[2019-03-19] MEDS ORDERED: CALCIUM GLUCONATE 2,000 MG in SODIUM CHLORIDE 0.9% 100 ML IV ONE (10:00)
--- NOTE | 2019-03-19 10:10 | Progress Note ---
Assessment and Plan Echo reviewed - EF 40-45%, impaired relaxation. Pt in SR overnight. Currently requiring multiple vasopressors. Continue supportive measures. Await neurology consultation. Can consider ischemic evaluation if/when medically stabilized. Overall guarded prognosis. The patient has been seen in conjunction with Dr. Echavarria who agrees with the assessment and plan of care. - Patient Problems (1) Cardiopulmonary arrest Current Visit: Yes Status: Acute (2) Acute respiratory failure Current Visit: Yes Status: Acute (3) SVT (supraventricular tachycardia) Current Visit: Yes Status: Resolved (4) Torsades de pointes Current Visit: Yes Status: Acute (5) Ventricular tachycardia Current Visit: Yes Status: Acute (6) Altered mental status Current Visit: Yes Status: Acute (7) Septic shock Current Visit: Yes Status: Acute (8) Aspiration pneumonia Current Visit: Yes Status: Acute (9) Acute renal failure Current Visit: Yes Status: Acute (10) Elevated LFTs Current Visit: Yes Status: Acute (11) Thrombocytopenia Current Visit: Yes Status: Acute (12) Enteritis Current Visit: Yes Status: Suspected Subjective Date of service: 03/19/19 Principal diagnosis: Septic Shock; Ac. hypoxemic resp failure; Renzo. PNA; Rhabdomyolysis; RUBEN Interval history: pt remains intubated, sedated. requiring multiple vasopressors. brother at bedside. Objective Last Vital Signs Temp 98.9 F 03/19/19 08:00 Pulse 94 H 03/19/19 09:01 Resp 17 03/19/19 09:01 BP 123/52 03/19/19 09:01 Pulse Ox 73 L 03/19/19 09:01 - Physical Examination General: Other (intubated, sedated) HEENT: Positive: PERRL Neck: Positive: neck supple Cardiac: Positive: Reg Rate and Rhythm, S1/S2 Lungs: Positive: Decreased Breath Sounds, Oxygen, Ventilated Respirations Neuro: Positive: Other (intubated, sedated) Abdomen: Positive: Unremarkable Skin: Positive: Clear Musculoskeletal: Decreased Range of Motion Extremities: Present: lower extr. pulses (weak, thready ) - Labs and Meds Cardiac Enzymes 03/19/19 Range/Units 04:00 AST 682 H (5-40) units/L CBC 03/18/19 03/19/19 Range/Units 08:40 04:00 WBC 36.5 H (4.5-11.0) K/mm3 RBC 4.53 (3.65-5.03) M/mm3 Hgb 12.9 (11.8-15.2) gm/dl Hct 39.1 (35.5-45.6) % Plt Count 35 L 35 L (140-440) K/mm3 Comprehensive Metabolic Panel 03/18/19 03/19/19 Range/Units 13:19 04:00 Sodium 132 L (137-145) mmol/L Potassium 5.7 H (3.6-5.0) mmol/L Chloride 89.8 L (98-107) mmol/L Carbon Dioxide 19 L (22-30) mmol/L BUN 62 H (9-20) mg/dL Creatinine 6.4 H (0.8-1.5) mg/dL Glucose 151 H (75-100) mg/dL Calcium 4.2 L* 5.2 L* D (8.4-10.2) mg/dL AST 682 H (5-40) units/L ALT 130 H (7-56) units/L Alkaline Phosphatase 167 H (35-129) units/L Total Protein 4.8 L (6.3-8.2) g/dL Albumin 2.3 L (3.9-5) g/dL - Imaging and Cardiology Echo: report reviewed - Telemetry EKG Rhythm: Sinus Rhythm - Allied health notes Allied health notes reviewed: nursing
--- NOTE | 2019-03-19 11:00 | Progress Note ---
Assessment and Plan Assessment and plan: Patient is a 43 year old male with PMH of GERD, Obesity, and per family has been homeless on the streets in [place] admitted to our facility following arrival via private vehicle with AMS x 2 Days per friend. On arrival was intubated in the ED noted to have rectal temp of 105 AND SVT with rate in the 250 requiring 2 shocks delivery * Initial rhythm appeared to be SVT * Per friend patient complaining of feeling ill and has some left eye discharge, cold, clammy and diaphrietic by the time arrived to the hospital. Also mentions a possibility of a right axilla abscess. The and went to stay with his girlfriend the last 2 days and this morning when he saw the patient he was ill-appearing but sleeping. * Currently on 4 pressors * Start on Elizabeth culture including coverage for possible Meningitis CHEST 1 VIEW . IMPRESSION: 1. Endotracheal tube in good position. 2. Nasogastric tube doubled back on itself at the level of the [place] with the tip not seen. The tube will need to be removed/reposition. CT of the chest, abdomen and pelvis without contrast . IMPRESSION: 1. Parenchy mal disease in both lower lobes posteromedially may be related to aspiration pneumonia. 2. Moderately dilated small bowel bowel loops in the mid to upper abdomen anteriorly with mild associated bowel wall thickening. Localized enteritis and small bowel ischemia should be considered. CT head/brain wo contrast. IMPRESSION: 1. Some component of diffuse cerebral edema cannot be excluded. However, this finding may be artifactual secondary to patient positioning. Close follow-up is recommended. No definitive signs of herniation or large territorial infarct at this time. 2. Otherwise, no focal mass, hemorrhage, hydrocephalus, or large infarct seen. Multi-Organ failure Septic Shock Severe Sepsis Acute Metabolic Encephalopathy Acute Respiratory Failure with Hypoxia Presume ARDS SVT with Polymorphic Vtach Rhabdomyolysis Severe Metabolic Acidosis Acute Cystitis Acute Kidney Failure secondary to ATN ANURIC Thrombocytopenia, Presume DIC Shock Liver Hypomagnesemia, Suspect Aspiration pneumonia Right Axillary cellulitis Enteritis Hypoglycemia-IMPROVED Plan: Continue supportive care Neurology consult EEG Will reattempt dialysis again today with possible Ultrafiltration Specialist impressions noted and appreciated Wean pressors as needed Continue bicarb drip Holding further fluids due to poor urine output, Aspiration Precautions and VAP bundle Echo reviewed and noted Ultrasound to further evaluate right axilla to r/o abscess vs LAD Monitor Blood glucose prevent hypoglycemia UDS noted, only shows benzos, ?from here or outside. per family no hx of drugs Per Nephrology * Its risky and he wouldn't tolerate hemodialysis at this point. * Continue maintenance IV fluids. * Had HD yesterday, plan for ultrafiltration today Monitor CK level Awaiting labs With four pressors will not transfuse Patients BP still too fragile to attempt any move, or even change to Bariatric bed DVT/GI prophy Poor prognosis Family informed and updated of clinical condition Advanced care planning, family opting against DNR, wants all done. Will like a call if patient codes as they may opt for limited code The high probability of a clinically significant, sudden or life threatening deterioration of the [multiple organs] system(s) required my full and direct attention, intervention and personal management. The aggregate critical care time was [45] minutes. This time is in addition to time spent performing reported procedures but includes the following: [x] Data Review and interpretation [x] Patient assessment and monitoring of vital signs [x] Documentation [x] Medication orders and management History Interval history: Patient seen and examined, remains on full MVS. non responsive, Still gravely sick on multiple Pressors. Brother at bedside. Still no significant Urine output per nursing staff. Hospitalist Physical - Physical exam Narrative exam: General appearance: Present: on full mechanical ventilation support - EENT Eyes: Present: PERRL, EOM intact, conjunctival with mild erythema ENT: other (on mechanical ventilation with AMS unable to access) - Neck Neck: Present: supple - Respiratory Respiratory effort: other (on full MVS) Respiratory: bilateral: diminished - Cardiovascular Rhythm: regular Heart Sounds: Present: S1 & S2. Absent: gallop, systolic murmur, diastolic murmur, rub - Extremities Extremities: no ischemia, pulses intact, pulses symmetrical, normal temperature Extremity abnormal: edema (trace) Peripheral Pulses: within normal limits - Abdominal General gastrointestinal: soft, non-tender, non-distended, normal bowel sounds - Integumentary Integumentary: Present: warm, erythema (right axilla with soft tissue swelling) - Psychiatric Psychiatric: other (ams) - Neurologic Neurologic: other (on mechanical ventilation with ams) - Allied Health Allied health notes reviewed: nursing - Constitutional Vitals: Temp Pulse Resp BP Pulse Ox 98.9 F 89 17 123/52 62 L 03/19/19 08:00 03/19/19 10:15 03/19/19 10:15 03/19/19 10:15 03/19/19 10:15 General appearance: Present: severe distress Results - Labs CBC & Chem 7: 03/19/19 04:00 03/19/19 04:00 Labs: Laboratory Last Values WBC 36.5 K/mm3 (4.5-11.0) H 03/19/19 04:00 RBC 4.53 M/mm3 (3.65-5.03) 03/19/19 04:00 Hgb 12.9 gm/dl (11.8-15.2) 03/19/19 04:00 Hct 39.1 % (35.5-45.6) 03/19/19 04:00 MCV 87 fl (84-94) 03/19/19 04:00 MCH 29 pg (28-32) 03/19/19 04:00 MCHC 33 % (32-34) 03/19/19 04:00 RDW 15.8 % (13.2-15.2) H 03/19/19 04:00 Plt Count 35 K/mm3 (140-440) L 03/19/19 04:00 Add Manual Diff Complete 03/17/19 14:37 Total Counted 100 03/17/19 14:37 Seg Neutrophils % Intake Rn 03/17/19 14:37 Seg Neuts % (Manual) 81.0 % (40.0-70.0) H 03/17/19 14:37 1.0 % 03/17/19 14:37 1.0 % (13.4-35.0) L 03/17/19 14:37 Reactive Lymphs % (Man) 1.0 % 03/17/19 14:37 15.0 % (0.0-7.3) H 03/17/19 14:37 1.0 % (0.0-4.3) 03/17/19 14:37 0 % (0.0-1.8) 03/17/19 14:37 0 % 03/17/19 14:37 0 % 03/17/19 14:37 0 % 03/17/19 14:37 0 % 03/17/19 14:37 Nucleated RBC % Not Reportable 03/17/19 14:37 Seg Neutrophils # Man 23.7 K/mm3 (1.8-7.7) H 03/17/19 14:37 Band Neutrophils # 0.3 K/mm3 03/17/19 14:37 0.3 K/mm3 (1.2-5.4) L 03/17/19 14:37 Abs React Lymphs (Man) 0.3 K/mm3 03/17/19 14:37 4.4 K/mm3 (0.0-0.8) H 03/17/19 14:37 0.3 K/mm3 (0.0-0.4) 03/17/19 14:37 0.0 K/mm3 (0.0-0.1) 03/17/19 14:37 0.0 K/mm3 03/17/19 14:37 0.0 K/mm3 03/17/19 14:37 0.0 K/mm3 03/17/19 14:37 Blast Cells # 0.0 K/mm3 03/17/19 14:37 WBC Morphology Not Reportable 03/17/19 14:37 Hypersegmented Neuts Not Reportable 03/17/19 14:37 Hyposegmented Neuts Not Reportable 03/17/19 14:37 Hypogranular Neuts Not Reportable 03/17/19 14:37 Not Reportable 03/17/19 14:37 Not Reportable 03/17/19 14:37 Not Reportable 03/17/19 14:37 Not Reportable 03/17/19 14:37 Not Reportable 03/17/19 14:37 Not Reportable 03/17/19 14:37 Consistent w auto 03/17/19 14:37 Not Reportable 03/17/19 14:37 Plt Clumps, EDTA Not Reportable 03/17/19 14:37 Not Reportable 03/17/19 14:37 Not Reportable 03/17/19 14:37 Not Reportable 03/17/19 14:37 Plt Morphology Comment Not Reportable 03/17/19 14:37 RBC Morphology Normal 03/17/19 14:37 Dimorphic RBCs Not Reportable 03/17/19 14:37 Not Reportable 03/17/19 14:37 Not Reportable 03/17/19 14:37 Not Reportable 03/17/19 14:37 Not Reportable 03/17/19 14:37 Not Reportable 03/17/19 14:37 Not Reportable 03/17/19 14:37 Not Reportable 03/17/19 14:37 Not Reportable 03/17/19 14:37 Not Reportable 03/17/19 14:37 Not Reportable 03/17/19 14:37 Not Reportable 03/17/19 14:37 Not Reportable 03/17/19 14:37 Not Reportable 03/17/19 14:37 Not Reportable 03/17/19 14:37 Not Reportable 03/17/19 14:37 Not Reportable 03/17/19 14:37 Not Reportable 03/17/19 14:37 Not Reportable 03/17/19 14:37 Not Reportable 03/17/19 14:37 Acanthocytes (Spur) Not Reportable 03/17/19 14:37 Rouleaux Not Reportable 03/17/19 14:37 Not Reportable 03/17/19 14:37 Not Reportable 03/17/19 14:37 Not Reportable 03/17/19 14:37 Not Reportable 03/17/19 14:37 Hem Pathologist Commnt No 03/17/19 14:37 PT 15.9 Sec. (12.2-14.9) H 03/16/19 17:05 INR 1.30 (0.87-1.13) H 03/16/19 17:05 APTT 31.7 Sec. (24.2-36.6) 03/16/19 17:05 POC ABG pH 7.222 (7.35-7.45) L 03/19/19 09:16 ABG pH 7.265 pH Units (7.350-7.450) L 03/19/19 05:35 POC ABG pCO2 56.6 (35-45) H 03/19/19 09:16 ABG pCO2 45.5 mm Hg 03/19/19 05:35 POC ABG pO2 59 (80-105) L 03/18/19 18:20 ABG pO2 35.4 mm Hg (80.0-90.0) L* 03/19/19 05:35 POC ABG HCO3 23.3 (22-26 mml/L) 03/19/19 09:16 ABG HCO3 20.2 mmol/L (20.0-26.0) 03/19/19 05:35 POC ABG Total CO2 25 (23-27mmol/L) 03/19/19 09:16 POC ABG O2 Sat 70 03/19/19 09:16 ABG O2 Saturation 54.4 % (95.0-99.0) L 03/19/19 05:35 ABG O2 Content 9.7 (0.0-44) 03/19/19 05:35 POC ABG Base Excess -4 ((-2) - (+3)mmol/L) 03/19/19 09:16 ABG Base Excess -6.7 mmol/L (-2.0-3.0) L 03/19/19 05:35 ABG Hemoglobin 12.9 gm/dl (14.0-18.0) L 03/19/19 05:35 ABG Carboxyhemoglobin 1.0 % (0.0-5.0) 03/19/19 05:35 ABG Methemoglobin 0.8 % (0.0-1.5) 03/19/19 05:35 53.4 % (95.0-99.0) L 03/19/19 05:35 100 % 03/19/19 09:16 Sodium 132 mmol/L (137-145) L 03/19/19 04:00 Potassium 5.7 mmol/L (3.6-5.0) H 03/19/19 04:00 Chloride 89.8 mmol/L (98-107) L 03/19/19 04:00 Carbon Dioxide 19 mmol/L (22-30) L 03/19/19 04:00 29 mmol/L 03/19/19 04:00 BUN 62 mg/dL (9-20) H 03/19/19 04:00 6.4 mg/dL (0.8-1.5) H 03/19/19 04:00 Estimated GFR 11 ml/min 03/19/19 04:00 10 % 03/19/19 04:00 Glucose 151 mg/dL (75-100) H 03/19/19 04:00 POC Glucose 154 (70-105) H 03/19/19 05:49 Lactic Acid 2.70 mmol/L (0.7-2.0) H* 03/19/19 09:50 Calcium 5.2 mg/dL (8.4-10.2) L* D 03/19/19 04:00 Phosphorus 7.30 mg/dL (2.5-4.5) H 03/17/19 03:45 Magnesium 2.40 mg/dL (1.7-2.3) H 03/18/19 08:40 7.80 mg/dL (0.1-1.2) H 03/19/19 04:00 5.9 mg/dL (0-0.2) H 03/16/19 17:05 0.3 mg/dL 03/16/19 17:05 AST 682 units/L (5-40) H 03/19/19 04:00 ALT 130 units/L (7-56) H 03/19/19 04:00 167 units/L (35-129) H 03/19/19 04:00 19463 units/L (55-170) H 03/19/19 09:50 CK-MB (CK-2) 54.3 ng/mL (0.0-4.0) H 03/17/19 07:16 CK-MB (CK-2) Rel Index 0.0 (0-4) 03/17/19 07:16 0.058 ng/mL (0.00-0.029) H 03/17/19 07:16 24.90 mg/dL (0.00-1.30) H 03/17/19 14:37 4.8 g/dL (6.3-8.2) L 03/19/19 04:00 2.3 g/dL (3.9-5) L 03/19/19 04:00 0.9 % 03/19/19 04:00 Triglycerides 395 mg/dL (2-149) H 03/16/19 22:32 Cholesterol 88 mg/dL (50-199) 03/16/19 22:32 10 mg/dL (50-130) L 03/16/19 22:32 7 mg/dL (40-59) L 03/16/19 22:32 12.57 % 03/16/19 22:32 TSH 2.200 mlU/mL (0.270-4.200) 03/16/19 17:05 Free T4 0.72 ng/dL (0.76-1.46) L 03/16/19 17:05 Kathy (Yellow) 03/17/19 16:05 Cloudy (Clear) 03/17/19 16:05 5.0 (5.0-7.0) 03/17/19 16:05 Ur Specific [place] 1.014 (1.003-1.030) 03/17/19 16:05 >500 mg/dL (Negative) 03/17/19 16:05 50 mg/dL (Negative) 03/17/19 16:05 Tr mg/dL (Negative) 03/17/19 16:05 Lg (Negative) 03/17/19 16:05 Neg (Negative) 03/17/19 16:05 Neg (Negative) 03/17/19 16:05 < 2.0 mg/dL (<2.0) 03/17/19 16:05 Ur Leukocyte Esterase Mod (Negative) 03/17/19 16:05 30.0 /HPF (0.0-6.0) H 03/17/19 16:05 11.0 /HPF (0.0-6.0) 03/17/19 16:05 U Epithel Cells (Auto) < 1.0 /HPF (0-13.0) 03/17/19 16:05 Few /HPF 03/17/19 16:05 2+ /HPF ([employer]PERVISOR) 03/17/19 16:05 None seen (None Seen) 03/17/19 16:05 106.6 mg/dL (0.1-20.0) H 03/17/19 16:05 95 mmol/L 03/17/19 16:05 Vancomycin Trough 11.5 ug/mL (5.0-20.0) 03/18/19 13:19 Salicylates < 0.3 mg/dL (2.8-20.0) L 03/16/19 17:05 Presumptive negative 03/17/19 16:05 Presumptive negative 03/17/19 16:05 Acetaminophen < 5.0 ug/mL (10.0-30.0) L 03/16/19 17:05 Ur Barbiturates Screen Presumptive negative 03/17/19 16:05 Ur Phencyclidine Scrn Presumptive negative 03/17/19 16:05 Ur Amphetamines Screen Presumptive negative 03/17/19 16:05 U Benzodiazepines Scrn Presumptive positive 03/17/19 16:05 Presumptive negative 03/17/19 16:05 U Marijuana (THC) Screen Presumptive negative 03/17/19 16:05 Disclamer 03/17/19 16:05 Plasma/Serum Alcohol < 0.01 % (0-0.07) 03/16/19 17:05 Hepatitis A IgM Ab Non-reactive (NonReactive) 03/18/19 13:18 Hep Bs Antigen Non-reactive (Negative) 03/18/19 13:18 Hep B Core IgM Ab Non-reactive (NonReactive) 03/18/19 13:18 Non-reactive (NonReactive) 03/18/19 13:18 HIV 1&2 Antibody Rapid Non react (Non React) 03/17/19 11:52 Non react (Non React) 03/17/19 11:52 Influenza A (Rapid) Negative (Negative) 03/17/19 17:00 Influenza B (Rapid) Negative (Negative) 03/17/19 17:00 Group A Strep Rapid Negative (Negative) 03/17/19 17:00 Active Medications - Current Medications Current Medications: Generic Name Dose Route Start Last Admin Trade Name Kirkq PRN Reason Stop Dose Admin Acetaminophen 650 mg 03/16/19 22:22 03/17/19 18:49 Tylenol [place] 650 mg Q4H PRN Administration Fever >101 Lipase/Protease/Amylase 1 each 03/17/19 14:45 Pancreaze 10,500 Unit FEEDTUBE PRN PRN For Clogged Feeding Tube Famotidine 10 mg 03/17/19 14:00 03/19/19 09:45 Pepcid PO 10 mg BID PAOLO Administration Fentanyl 50 mcg 03/16/19 16:06 03/16/19 17:02 Sublimaze IV 50 mcg Q10MIN PRN Administration ANALGESIA Hydrocortisone Sodium Succinate 100 mg 03/18/19 20:00 03/19/19 04:01 Solu-Cortef IV 100 mg Q8H PAOLO Administration Hydrophilic Ointment 1 applic 03/16/19 15:50 Vaseline Lip Therapy TP Q2HR PRN Dry Lips Midazolam HCl 100 mg/ Sodium 100 mls @ 2 mls/hr 03/16/19 16:00 03/19/19 09:49 Chloride IV 0 mg/hr TITR PAOLO 0 mls/hr Titration Protocol 2 MG/HR Fentanyl Citrate 2,000 mcg in 100 mls @ 6.804 mls/hr 03/16/19 17:00 03/19/19 09:56 Fentanyl Drip Premix IV 0 mcg/kg/hr TITR PAOLO 0 mls/hr Titration Protocol 1 MCG/KG/HR Vasopressin 20 unit/ Sodium 101 mls @ 9.09 mls/hr 03/16/19 23:45 03/19/19 04:43 Chloride IV 0.03 units/min TITR PAOLO 9.09 mls/hr Administration Protocol 0.03 UNITS/MIN Norepinephrine 8 mg/ Sodium 250 mls @ 3.75 mls/hr 03/17/19 02:00 03/19/19 09:49 Chloride IV 30 mcg/min TITR PAOLO 56.25 mls/hr Administration Protocol 2 MCG/MIN Phenylephrine HCl 100 mg/ 100 mls @ 3 mls/hr 03/17/19 02:30 03/19/19 08:36 Sodium Chloride IV 400 mcg/min TITR PAOLO 24 mls/hr Administration Protocol 50 MCG/MIN Clindamycin HCl 900 mg in 50 mls @ 100 mls/hr 03/17/19 14:00 03/19/19 05:22 Cleocin 900 Mg/50 Ml IV 100 mls/hr Q8HR PAOLO Administration Protocol Ceftriaxone Sodium 2 gm in 100 mls @ 200 mls/hr 03/17/19 12:00 03/19/19 09:48 Rocephin/Ns 2 Gm/100 Ml IV 200 mls/hr Q12HR PAOLO Administration Protocol Doxycycline Hyclate 100 mg/ 250 mls @ 250 mls/hr 03/17/19 12:00 03/19/19 09:47 Sodium Chloride IV 250 mls/hr Q12HR PAOLO Administration Protocol Sodium Bicarbonate 150 meq/ 1,150 mls @ 150 mls/hr 03/17/19 14:00 03/19/19 05:37 Dextrose IV 03/20/19 21:39 150 mls/hr DIRECT PAOLO Administration Dopamine HCl/Dextrose 800 mg in 250 mls @ 5.103 mls/hr 03/17/19 23:00 03/19/19 10:20 Intropin Drip 800 Mg/D5w 250 Ml IV 14 mcg/kg/min TITR PAOLO 35.72 mls/hr Titration Protocol 2 MCG/KG/MIN Sodium Chloride 100 mls @ 999 mls/hr 03/18/19 13:16 Nacl 0.9% IV NEYMAR PRN Hypotension Amiodarone HCl 900 mg/ 500 mls @ 33.333 mls/hr 03/18/19 17:00 03/18/19 23:26 Dextrose IV 0.5 mg/min DIRECT PAOLO 16.667 mls/hr Infusion Protocol 1 MG/MIN Sodium Chloride 100 mls @ 999 mls/hr 03/19/19 09:28 Nacl 0.9% IV NEYMAR PRN Hypotension Midazolam HCl 2 mg 03/16/19 15:50 Versed IV Q10MIN PRN Sedation Midodrine 10 mg 03/18/19 20:00 03/19/19 04:01 Proamatine PO 10 mg Q8H PAOLO Administration Multi-Ingred Cream/Lotion/Oil/Oint 1 applic 03/16/19 15:50 Artificial Tears Ophth Oint OU Q4HR PRN Dry Eye(s) Ondansetron HCl 4 mg 03/16/19 22:21 Zofran IV Q8H PRN Nausea And Vomiting Simple Syrup 15 ml 03/17/19 14:45 Simple Syrup FEEDTUBE PRN PRN Hypoglycemia Simple Syrup 30 ml 03/17/19 14:45 Simple Syrup FEEDTUBE PRN PRN Hypoglycemia Sodium Bicarbonate 325 mg 03/17/19 14:45 Sodium Bicarbonate FEEDTUBE PRN PRN For Clogged Feeding Tube Nutrition/Malnutrition Assess - Dietary Evaluation Nutrition/Malnutrition Findings: Nutrition Notes Start: 03/17/19 14:22 Freq: Status: Active Protocol: Document 03/18/19 15:21 RM (Rec: 03/18/19 15:46 RM [id number]) Nutrition Notes Initial or Follow up Reassessment Current Diagnosis Acute Kidney Injury Other Pertinent Diagnosis Septic shock,Multiple organ failure, encephalopathy Current Diet no diet ordered Labs/Tests K 5.5 Pertinent Medications Norepinephrine, Vasopressin, Phenylephrine, Dopamine Height 6 ft Weight 136.078 kg [place] Body Weight (kg) 80.90 BMI 40.6 Subjective/Other Information TF was not started yesterday. Per nurse surgeon ordered that TF not be started today d/t pressors. Burn Absent Trauma Absent Minimum of two criteria No #1 Nutrition Diagnosis Inadequate oral intake Diagnosis Progress(for reassessment Continues documentation) Is patient on ventilator? Yes Is Patient Ambulatory and/or Out of Bed No REE-([facility]-confined to bed) 2743.224 Kcal/Kg value to use for calculation 16 Approximate Energy Requirements Using 2177 kcal/Kg Calculation Used for Recommendations Kcal/kg Additional Notes Protein Needs: 202g (2.5g/kg IBW) Fluid Needs: 1 ml/kcal Protein needs are lower than estimated d/t RUBEN Nutrition Intervention Nutrition Support: Trickle feed while on pressors : Nepro at 5 ml/hr w/water flush 50 mls q 4 hrs or Once pressors D/C'd: Nepro at 50 ml/hr w/water flush 200 mls q 4 hrs Kcal 216 Protein (gm) 10 Goal #1 Trickle feed when medically able Anticipated Discharge Needs: Unable to determine at this time Follow-Up By: 03/20/19 Additional Comments Follow for POC
--- NOTE | 2019-03-19 11:13 | Vascular Lab Report ---
DUPLEX DOPPLER LOWER EXTREMITY VEINS, BILATERAL INDICATION: swelling; pain; hypoxemia. TECHNIQUE: Duplex doppler imaging was performed through the veins of both lower extremities using venous angie daysi and other maneuvers. COMPARISON: No relevant prior imaging study available. FINDINGS: Right Common femoral vein: Negative. Right Superficial femoral vein: Negative. Right Popliteal vein: Negative. Right Calf veins: Negative. Left Common femoral vein: Negative. Left Superficial femoral vein: Negative. Left Popliteal vein: Negative. Left Calf veins: Negative. Additional findings: None.. IMPRESSION: 1. No sonographic evidence for DVT in either lower extremity. Signer Name: Fadi Lopez MD Signed: 03/19/2019 11:08 AM Workstation Name: [id number]
--- NOTE | 2019-03-19 11:19 | Progress Note ---
Assessment and Plan Cultures: 03/16/2019 sputum: salivary contamination 03/16/2019 Blood culture: no growth 03/17/2019 Urine culture no growth 03/17/2019 throat culture: in process Assessment: 43/M with ?psych history: 1) Refractory septic shock: remains on 4 pressors, HD, 100% FiO2. Leukocytosis +, fever trending down. ?Infectious etiology. Possibility of Neuroleptic Malignant Syndrome given psych history, high fever of 105F and extremely elevated CPK of >100K. Unclear if he was on any psych med. From ID standpoint, continue broad coverage for meningitis, tick borne illness, aspiration pneumonia. Blood culture negative so far. UA with mild pyuria ?. HIV rapid negative. Strep A rapid ag negative. 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 He lives in a hotel in a [place] neighborhood in [place] and believes he has been intermittently homeless. He met his friend Gio, who brought him to [place]. Brother denies any history of drug abuse or alcohol abuse but reports history of mental disorder, he has never received treatment. His parent do not talk to him. He denies homosexual behavior but does not have clear why he is in so close contact with new friend Gio here in [place]. Brother does not know anything about his symptoms as he spoke with him last time 3 months ago. 2) Probable aspiration pneumonia 3) Acute respiratory failure: on 100% FiO2 4) ?Right axillary mass: doubt abscess, US no collection seen 5) Acute encephalopathy: should r/o meningitis. CT head shows diffuse cerebral edema ?artifact. But too unstable for LP at this time. 6) Multiorgan dysfunction syndrome 7) Acute renal failure: renally dosing all abx, now on HD 8) Elevated LFTs/shock liver: also likely elevated from Rhabdomyolysis. Viral hepatitis panel negative. 9) Thrombocytopenia 10) Rhabdomyolysis 11) ?Enteritis: per CT ? no collection no perforation no obvious ischemic bowel Recommendations: follow blood culture and respiratory culture LP when feasible, currently too unstable continue ceftriaxone 2 gm IV q 12 h continue doxycycline 100 mg IV q 12 h continue vancomycin IV renally adjusted will d/c Clindamycin extremely poor prognosis, impending mortality d/w Dr. Jason Elizabeth MD, FACP [facility] ([facility]) M: [phone] O: [phone] F: [phone] Subjective Date of service: 03/19/19 Principal diagnosis: Septic Shock; Ac. hypoxemic resp failure; Renzo. PNA; Rhabdomyolysis; RUBEN Interval history: Remains intubated, sedated. Critically ill, getting HD, on multiple pressors. 100% FiO2 with sats in the 60s. Objective - Exam Narrative Exam: Physical Exam: Constitutional: sedated, intubated Head, Ears, Nose: Normocephalic, atraumatic. External ears, nose normal Eyes: Conjunctivae/corneas clear. No icterus. No ptosis. Neck: Supple, no meningeal signs Oral: intubated Cardiovascular: S1, S2 normal. Respiratory: Good air entry, clear to auscultation bilaterally GI: Soft, non-tender; bowel sounds normal. No peritoneal signs Musculoskeletal: No pedal edema, no cyanosis. Skin: No rash or abscess Hem/Lymphatic: No palpable cervical or supraclavicular nodes. No lymphangitis Psych: no agitation Neurological: sedated, intubated, on vent - Constitutional Vitals: Vital Signs Temp Pulse Resp BP Pulse Ox 99.4 F 89 17 123/52 62 L 03/19/19 10:10 03/19/19 10:15 03/19/19 10:15 03/19/19 10:15 03/19/19 10:15 Temperature -Last 24 Hours Temperature 99.4 F Temperature 98.9 F Temperature 98.6 F Temperature 98.3 F Temperature 98.8 F Temperature 99.1 F Temperature 99.1 F Temperature 98.3 F Temperature 98.3 F - Labs CBC & Chem 7: 03/19/19 04:00 03/19/19 04:00 Labs: Abnormal lab results 03/18/19 03/18/19 03/18/19 Range/Units 12:33 12:50 13:19 WBC (4.5-11.0) K/mm3 RDW (13.2-15.2) % Plt Count (140-440) K/mm3 POC ABG pH 7.282 L (7.35-7.45) ABG pH (7.350-7.450) pH Units POC ABG pCO2 (35-45) POC ABG pO2 67 L (80-105) ABG pO2 (80.0-90.0) mm Hg ABG O2 Saturation (95.0-99.0) % ABG Base Excess (-2.0-3.0) mmol/L ABG Hemoglobin (14.0-18.0) gm/dl Oxyhemoglobin (95.0-99.0) % Sodium (137-145) mmol/L Potassium (3.6-5.0) mmol/L Chloride (98-107) mmol/L Carbon Dioxide (22-30) mmol/L BUN (9-20) mg/dL Creatinine (0.8-1.5) mg/dL Glucose (75-100) mg/dL POC Glucose 129 H (70-105) Lactic Acid 3.30 H* (0.7-2.0) mmol/L Calcium (8.4-10.2) mg/dL Total Bilirubin (0.1-1.2) mg/dL AST (5-40) units/L ALT (7-56) units/L Alkaline Phosphatase (35-129) units/L Total Creatine Kinase (55-170) units/L Total Protein (6.3-8.2) g/dL Albumin (3.9-5) g/dL 03/18/19 03/18/19 03/18/19 Range/Units 13:19 16:50 18:11 WBC (4.5-11.0) K/mm3 RDW (13.2-15.2) % Plt Count (140-440) K/mm3 POC ABG pH (7.35-7.45) ABG pH (7.350-7.450) pH Units POC ABG pCO2 (35-45) POC ABG pO2 59 L (80-105) ABG pO2 (80.0-90.0) mm Hg ABG O2 Saturation (95.0-99.0) % ABG Base Excess (-2.0-3.0) mmol/L ABG Hemoglobin (14.0-18.0) gm/dl Oxyhemoglobin (95.0-99.0) % Sodium (137-145) mmol/L Potassium (3.6-5.0) mmol/L Chloride (98-107) mmol/L Carbon Dioxide (22-30) mmol/L BUN (9-20) mg/dL Creatinine (0.8-1.5) mg/dL Glucose (75-100) mg/dL POC Glucose 151 H (70-105) Lactic Acid (0.7-2.0) mmol/L Calcium 4.2 L* (8.4-10.2) mg/dL Total Bilirubin (0.1-1.2) mg/dL AST (5-40) units/L ALT (7-56) units/L Alkaline Phosphatase (35-129) units/L Total Creatine Kinase 204482 H (55-170) units/L Total Protein (6.3-8.2) g/dL Albumin (3.9-5) g/dL 03/18/19 03/18/19 03/19/19 Range/Units 18:20 23:39 01:42 WBC (4.5-11.0) K/mm3 RDW (13.2-15.2) % Plt Count (140-440) K/mm3 POC ABG pH 7.345 L (7.35-7.45) ABG pH 7.285 L (7.350-7.450) pH Units POC ABG pCO2 (35-45) POC ABG pO2 59 L (80-105) ABG pO2 44.0 L (80.0-90.0) mm Hg ABG O2 Saturation 70.9 L (95.0-99.0) % ABG Base Excess -5.7 L (-2.0-3.0) mmol/L ABG Hemoglobin 11.9 L (14.0-18.0) gm/dl Oxyhemoglobin 69.6 L (95.0-99.0) % Sodium (137-145) mmol/L Potassium (3.6-5.0) mmol/L Chloride (98-107) mmol/L Carbon Dioxide (22-30) mmol/L BUN (9-20) mg/dL Creatinine (0.8-1.5) mg/dL Glucose (75-100) mg/dL POC Glucose 152 H (70-105) Lactic Acid (0.7-2.0) mmol/L Calcium (8.4-10.2) mg/dL Total Bilirubin (0.1-1.2) mg/dL AST (5-40) units/L ALT (7-56) units/L Alkaline Phosphatase (35-129) units/L Total Creatine Kinase (55-170) units/L Total Protein (6.3-8.2) g/dL Albumin (3.9-5) g/dL 03/19/19 03/19/19 03/19/19 Range/Units 04:00 04:00 05:35 WBC 36.5 H (4.5-11.0) K/mm3 RDW 15.8 H (13.2-15.2) % Plt Count 35 L (140-440) K/mm3 POC ABG pH (7.35-7.45) ABG pH 7.265 L (7.350-7.450) pH Units POC ABG pCO2 (35-45) POC ABG pO2 (80-105) ABG pO2 35.4 L* (80.0-90.0) mm Hg ABG O2 Saturation 54.4 L (95.0-99.0) % ABG Base Excess -6.7 L (-2.0-3.0) mmol/L ABG Hemoglobin 12.9 L (14.0-18.0) gm/dl Oxyhemoglobin 53.4 L (95.0-99.0) % Sodium 132 L (137-145) mmol/L Potassium 5.7 H (3.6-5.0) mmol/L Chloride 89.8 L (98-107) mmol/L Carbon Dioxide 19 L (22-30) mmol/L BUN 62 H (9-20) mg/dL Creatinine 6.4 H (0.8-1.5) mg/dL Glucose 151 H (75-100) mg/dL POC Glucose (70-105) Lactic Acid (0.7-2.0) mmol/L Calcium 5.2 L* D (8.4-10.2) mg/dL Total Bilirubin 7.80 H (0.1-1.2) mg/dL AST 682 H (5-40) units/L ALT 130 H (7-56) units/L Alkaline Phosphatase 167 H (35-129) units/L Total Creatine Kinase (55-170) units/L Total Protein 4.8 L (6.3-8.2) g/dL Albumin 2.3 L (3.9-5) g/dL 03/19/19 03/19/19 03/19/19 Range/Units 05:49 09:16 09:50 WBC (4.5-11.0) K/mm3 RDW (13.2-15.2) % Plt Count (140-440) K/mm3 POC ABG pH 7.222 L (7.35-7.45) ABG pH (7.350-7.450) pH Units POC ABG pCO2 56.6 H (35-45) POC ABG pO2 (80-105) ABG pO2 (80.0-90.0) mm Hg ABG O2 Saturation (95.0-99.0) % ABG Base Excess (-2.0-3.0) mmol/L ABG Hemoglobin (14.0-18.0) gm/dl Oxyhemoglobin (95.0-99.0) % Sodium (137-145) mmol/L Potassium (3.6-5.0) mmol/L Chloride (98-107) mmol/L Carbon Dioxide (22-30) mmol/L BUN (9-20) mg/dL Creatinine (0.8-1.5) mg/dL Glucose (75-100) mg/dL POC Glucose 154 H (70-105) Lactic Acid 2.70 H* (0.7-2.0) mmol/L Calcium (8.4-10.2) mg/dL Total Bilirubin (0.1-1.2) mg/dL AST (5-40) units/L ALT (7-56) units/L Alkaline Phosphatase (35-129) units/L Total Creatine Kinase (55-170) units/L Total Protein (6.3-8.2) g/dL Albumin (3.9-5) g/dL 03/19/19 Range/Units 09:50 WBC (4.5-11.0) K/mm3 RDW (13.2-15.2) % Plt Count (140-440) K/mm3 POC ABG pH (7.35-7.45) ABG pH (7.350-7.450) pH Units POC ABG pCO2 (35-45) POC ABG pO2 (80-105) ABG pO2 (80.0-90.0) mm Hg ABG O2 Saturation (95.0-99.0) % ABG Base Excess (-2.0-3.0) mmol/L ABG Hemoglobin (14.0-18.0) gm/dl Oxyhemoglobin (95.0-99.0) % Sodium (137-145) mmol/L Potassium (3.6-5.0) mmol/L Chloride (98-107) mmol/L Carbon Dioxide (22-30) mmol/L BUN (9-20) mg/dL Creatinine (0.8-1.5) mg/dL Glucose (75-100) mg/dL POC Glucose (70-105) Lactic Acid (0.7-2.0) mmol/L Calcium (8.4-10.2) mg/dL Total Bilirubin (0.1-1.2) mg/dL AST (5-40) units/L ALT (7-56) units/L Alkaline Phosphatase (35-129) units/L Total Creatine Kinase 72452 H (55-170) units/L Total Protein (6.3-8.2) g/dL Albumin (3.9-5) g/dL - Imaging and cardiology Chest x-ray: report reviewed, image reviewed (diffuse bilateral opacities)
--- NOTE | 2019-03-19 12:59 | Consultation ---
History of Present Illness Consult date: 03/19/19 Reason for Consult: Altered mental status Chief complaint: Altered mental status History of present illness: Patient is a 43 y/o man w/ a history of psychiatric illness (unknown which psychiatric diagnosis he has been given in the past), who presented on 03/16/19 with altered mental status. He lives in [place], however was visiting a friend in [place]. On 03/13/19, patient was reportedly in his normal state of health, however his friend last saw him in the morning on the day of admission, and patient was not feeling well. His friend went back to check on him at lunch (patient was reportedly staying in a hotel), and noted that patient was in altered mental status, and reportedly had discharge coming from his eyes. Patient was brought to [facility], and was noted to have difficulty speaking, as well as diaphoresis. Patient was intubated for airway protection. During the course of admission, patient was found to have sepsis with septic shock, rhabdomyolysis, RUBEN, and multiorgan failure. Past History Past Medical History: GERD (per medical record), other (Morbid obesity, chronic eye discharge) Past Surgical History: Other (unknown) Social history: other (unknown) Family history: other (unknown) Medications and Allergies Allergies Allergy/AdvReac Type Severity Reaction Status Date / Time No Known Allergies Allergy Unverified 03/16/19 17:17 Home Medications Medication Instructions Recorded Confirmed Last Taken Type Unobtainable 03/18/19 03/18/19 Unknown History Active Meds: Active Medications Acetaminophen (Tylenol) 650 mg [place] Q4H PRN PRN Reason: Fever >101 Last Admin: 03/17/19 18:49 Dose: 650 mg Documented by: Lipase/Protease/Amylase (Pancrekarly Purcell 10,500 Unit) 1 each FEEDTUBE PRN PRN PRN Reason: For Clogged Feeding Tube Famotidine (Pepcid) 10 mg PO BID [facility] Last Admin: 03/19/19 09:45 Dose: 10 mg Documented by: Fentanyl (Sublimaze) 50 mcg IV Q10MIN PRN PRN Reason: ANALGESIA Last Admin: 03/16/19 17:02 Dose: 50 mcg Documented by: Hydrocortisone Sodium Succinate (Solu-Cortef) 100 mg IV Q8H [facility] Last Admin: 03/19/19 12:44 Dose: 100 mg Documented by: Hydrophilic Ointment (Vaseline Lip Therapy) 1 applic TP Q2HR PRN PRN Reason: Dry Lips Midazolam HCl 100 mg/ Sodium (Chloride) 100 mls @ 2 mls/hr IV TITR PAOLO; Protocol Last Titration: 03/19/19 09:49 Dose: 0 mg/hr, 0 mls/hr Documented by: Fentanyl Citrate (Fentanyl Drip Premix) 2,000 mcg in 100 mls @ 6.804 mls/hr IV TITR PAOLO; Protocol Last Titration: 03/19/19 11:26 Dose: 1 mcg/kg/hr, 6.804 mls/hr Documented by: Vasopressin 20 unit/ Sodium (Chloride) 101 mls @ 9.09 mls/hr IV TITR PAOLO; Protocol Last Admin: 03/19/19 04:43 Dose: 0.03 units/min, 9.09 mls/hr Documented by: Norepinephrine 8 mg/ Sodium (Chloride) 250 mls @ 3.75 mls/hr IV TITR PAOLO; Protocol Last Admin: 03/19/19 09:49 Dose: 30 mcg/min, 56.25 mls/hr Documented by: Phenylephrine HCl 100 mg/ (Sodium Chloride) 100 mls @ 3 mls/hr IV TITR PAOLO; Protocol Last Admin: 03/19/19 12:18 Dose: 400 mcg/min, 24 mls/hr Documented by: Clindamycin HCl (Cleocin 900 Mg/50 Ml) 900 mg in 50 mls @ 100 mls/hr IV Q8HR [facility]; Protocol Last Admin: 03/19/19 05:22 Dose: 100 mls/hr Documented by: Ceftriaxone Sodium (Rocephin/Ns 2 Gm/100 Ml) 2 gm in 100 mls @ 200 mls/hr IV Q12HR [facility]; Protocol Last Admin: 03/19/19 09:48 Dose: 200 mls/hr Documented by: Doxycycline Hyclate 100 mg/ (Sodium Chloride) 250 mls @ 250 mls/hr IV Q12HR [facility]; Protocol Last Admin: 03/19/19 09:47 Dose: 250 mls/hr Documented by: Sodium Bicarbonate 150 meq/ (Dextrose) 1,150 mls @ 150 mls/hr IV DIRECT [facility] Stop: 03/20/19 21:39 Last Admin: 03/19/19 05:37 Dose: 150 mls/hr Documented by: Dopamine HCl/Dextrose (Intropin Drip 800 Mg/D5w 250 Ml) 800 mg in 250 mls @ 5.103 mls/hr IV TITR PAOLO; Protocol Last Admin: 03/19/19 11:23 Dose: 14 mcg/kg/min, 35.72 mls/hr Documented by: Amiodarone HCl 900 mg/ (Dextrose) 500 mls @ 33.333 mls/hr IV DIRECT PAOLO; Protocol Last Infusion: 03/18/19 23:26 Dose: 0.5 mg/min, 16.667 mls/hr Documented by: Sodium Chloride (Nacl 0.9%) 100 mls @ 999 mls/hr IV NEYMAR PRN PRN Reason: Hypotension Midazolam HCl (Versed) 2 mg IV Q10MIN PRN PRN Reason: Sedation Midodrine (Proamatine) 10 mg PO Q8H [facility] Last Admin: 03/19/19 12:44 Dose: 10 mg Documented by: Multi-Ingred Cream/Lotion/Oil/Oint (Artificial Tears Ophth Oint) 1 applic OU Q4HR PRN PRN Reason: Dry Eye(s) Ondansetron HCl (Zofran) 4 mg IV Q8H PRN PRN Reason: Nausea And Vomiting Simple Syrup (Simple Syrup) 15 ml FEEDTUBE PRN PRN PRN Reason: Hypoglycemia Simple Syrup (Simple Syrup) 30 ml FEEDTUBE PRN PRN PRN Reason: Hypoglycemia Sodium Bicarbonate (Sodium Bicarbonate) 325 mg FEEDTUBE PRN PRN PRN Reason: For Clogged Feeding Tube Review of Systems ROS unobtainable: due to endotracheal tube, due to mental status Physical Examination - Vital Signs Vital Signs: Vital Signs Pulse Resp Pulse Ox 195 H 29 H 82 L 03/16/19 15:26 03/16/19 15:26 03/16/19 15:26 - Physical Exam Narrative exam: Patient is intubated, comatose. PERRL, corneal reflexes diminished, cough weakly intact. Withdraws to pain stimulus in all extremities. 2+ reflexes throughout. - Constitutional General appearance: acutely ill - EENT EENT: Present: ATNC, PERRL, mucous membranes moist - Respiratory Respiratory: Present: decreased breath sounds - Cardiovascular Cardiovascular: Present: regular rate, normal S1, normal S2 Extremities: Present: no clubbing, cyanosis, no inflammation - Gastrointestinal Gastrointestinal: Present: normoactive bowel sounds, soft, non-tender - Integumentary Integumentary: Present: normal Results - Laboratory Findings CBC and BMP: 03/19/19 04:00 03/19/19 04:00 Abnormal Lab Findings: Abnormal Labs 03/16/19 03/16/19 03/16/19 16:03 16:05 16:59 WBC 27.0 H RBC 5.55 H Hgb 15.7 H Hct 47.1 H RDW Plt Count 75 L Seg Neuts % (Manual) 85.0 H Lymphocytes % (Manual) 2.0 L Monocytes % (Manual) Seg Neutrophils # Man 23.0 H Lymphocytes # (Manual) 0.5 L Monocytes # (Manual) PT INR POC ABG pH 7.297 L ABG pH POC ABG pCO2 33.0 L POC ABG pO2 ABG pO2 ABG O2 Saturation ABG Base Excess ABG Hemoglobin Oxyhemoglobin Sodium 127 L Potassium Chloride 87.8 L Carbon Dioxide 17 L BUN 49 H Creatinine 5.8 H Glucose 150 H POC Glucose Lactic Acid Calcium 6.6 L Phosphorus Magnesium 1.10 L Total Bilirubin Direct Bilirubin AST ALT Alkaline Phosphatase Total Creatine Kinase 56226 H CK-MB (CK-2) Troponin T C-Reactive Protein Total Protein Albumin Triglycerides LDL Cholesterol Direct HDL Cholesterol Free T4 Urine WBC (Auto) Urine Creatinine Salicylates Acetaminophen 03/16/19 03/16/19 03/16/19 17:05 17:05 17:05 WBC RBC Hgb Hct RDW Plt Count Seg Neuts % (Manual) Lymphocytes % (Manual) Monocytes % (Manual) Seg Neutrophils # Man Lymphocytes # (Manual) Monocytes # (Manual) PT INR POC ABG pH ABG pH POC ABG pCO2 POC ABG pO2 ABG pO2 ABG O2 Saturation ABG Base Excess ABG Hemoglobin Oxyhemoglobin Sodium Potassium Chloride Carbon Dioxide BUN Creatinine Glucose POC Glucose Lactic Acid 5.10 H* Calcium Phosphorus Magnesium Total Bilirubin Direct Bilirubin AST ALT Alkaline Phosphatase Total Creatine Kinase 32633 H CK-MB (CK-2) 83.1 H Troponin T C-Reactive Protein Total Protein Albumin Triglycerides LDL Cholesterol Direct HDL Cholesterol Free T4 0.72 L Urine WBC (Auto) Urine Creatinine Salicylates Acetaminophen 03/16/19 03/16/19 03/16/19 17:05 17:05 17:05 WBC RBC Hgb Hct RDW Plt Count Seg Neuts % (Manual) Lymphocytes % (Manual) Monocytes % (Manual) Seg Neutrophils # Man Lymphocytes # (Manual) Monocytes # (Manual) PT 15.9 H INR 1.30 H POC ABG pH ABG pH POC ABG pCO2 POC ABG pO2 ABG pO2 ABG O2 Saturation ABG Base Excess ABG Hemoglobin Oxyhemoglobin Sodium Potassium Chloride Carbon Dioxide BUN Creatinine Glucose POC Glucose Lactic Acid Calcium Phosphorus Magnesium Total Bilirubin Direct Bilirubin AST ALT Alkaline Phosphatase Total Creatine Kinase CK-MB (CK-2) Troponin T C-Reactive Protein Total Protein Albumin Triglycerides LDL Cholesterol Direct HDL Cholesterol Free T4 Urine WBC (Auto) Urine Creatinine Salicylates < 0.3 L Acetaminophen < 5.0 L 03/16/19 03/16/19 03/16/19 17:05 20:35 21:45 WBC RBC Hgb Hct RDW Plt Count Seg Neuts % (Manual) Lymphocytes % (Manual) Monocytes % (Manual) Seg Neutrophils # Man Lymphocytes # (Manual) Monocytes # (Manual) PT INR POC ABG pH ABG pH POC ABG pCO2 POC ABG pO2 ABG pO2 ABG O2 Saturation ABG Base Excess ABG Hemoglobin Oxyhemoglobin Sodium Potassium Chloride Carbon Dioxide BUN Creatinine Glucose POC Glucose Lactic Acid 3.30 H* 3.30 H* Calcium Phosphorus Magnesium Total Bilirubin 6.20 H Direct Bilirubin 5.9 H AST 800 H ALT 120 H Alkaline Phosphatase Total Creatine Kinase CK-MB (CK-2) Troponin T C-Reactive Protein Total Protein 4.4 L Albumin 2.4 L Triglycerides LDL Cholesterol Direct HDL Cholesterol Free T4 Urine WBC (Auto) Urine Creatinine Salicylates Acetaminophen 03/16/19 03/16/19 03/17/19 22:32 Unknown 03:45 WBC RBC Hgb Hct RDW Plt Count Seg Neuts % (Manual) Lymphocytes % (Manual) Monocytes % (Manual) Seg Neutrophils # Man Lymphocytes # (Manual) Monocytes # (Manual) PT INR POC ABG pH ABG pH POC ABG pCO2 POC ABG pO2 ABG pO2 ABG O2 Saturation ABG Base Excess ABG Hemoglobin Oxyhemoglobin Sodium 131 L Potassium Chloride 88.9 L Carbon Dioxide BUN 53 H Creatinine 7.1 H Glucose POC Glucose Lactic Acid 3.00 H* Calcium 5.4 L* D Phosphorus 7.30 H Magnesium 1.60 L Total Bilirubin 5.90 H Direct Bilirubin AST 801 H ALT 109 H Alkaline Phosphatase Total Creatine Kinase 02888 H CK-MB (CK-2) Troponin T 0.047 H D C-Reactive Protein Total Protein 4.5 L Albumin 2.0 L Triglycerides 395 H LDL Cholesterol Direct 10 L HDL Cholesterol 7 L Free T4 Urine WBC (Auto) Urine Creatinine Salicylates Acetaminophen 03/17/19 03/17/19 03/17/19 03:45 03:45 05:47 WBC RBC Hgb Hct RDW Plt Count Seg Neuts % (Manual) Lymphocytes % (Manual) Monocytes % (Manual) Seg Neutrophils # Man Lymphocytes # (Manual) Monocytes # (Manual) PT INR POC ABG pH 7.193 L ABG pH POC ABG pCO2 45.2 H POC ABG pO2 65 L ABG pO2 ABG O2 Saturation ABG Base Excess ABG Hemoglobin Oxyhemoglobin Sodium Potassium Chloride Carbon Dioxide BUN Creatinine Glucose POC Glucose Lactic Acid 4.10 H* Calcium Phosphorus Magnesium Total Bilirubin Direct Bilirubin AST ALT Alkaline Phosphatase Total Creatine Kinase 65167 H CK-MB (CK-2) 41.5 H Troponin T 0.054 H C-Reactive Protein Total Protein Albumin Triglycerides LDL Cholesterol Direct HDL Cholesterol Free T4 Urine WBC (Auto) Urine Creatinine Salicylates Acetaminophen 03/17/19 03/17/19 03/17/19 07:16 07:16 11:52 WBC RBC Hgb Hct RDW Plt Count Seg Neuts % (Manual) Lymphocytes % (Manual) Monocytes % (Manual) Seg Neutrophils # Man Lymphocytes # (Manual) Monocytes # (Manual) PT INR POC ABG pH ABG pH POC ABG pCO2 POC ABG pO2 ABG pO2 ABG O2 Saturation ABG Base Excess ABG Hemoglobin Oxyhemoglobin Sodium Potassium Chloride Carbon Dioxide BUN Creatinine Glucose POC Glucose Lactic Acid 5.50 H* 8.20 H* Calcium Phosphorus Magnesium Total Bilirubin Direct Bilirubin AST ALT Alkaline Phosphatase Total Creatine Kinase 39181 H CK-MB (CK-2) 54.3 H Troponin T 0.058 H C-Reactive Protein Total Protein Albumin Triglycerides LDL Cholesterol Direct HDL Cholesterol Free T4 Urine WBC (Auto) Urine Creatinine Salicylates Acetaminophen 03/17/19 03/17/19 03/17/19 12:51 13:01 14:37 WBC RBC Hgb Hct RDW Plt Count Seg Neuts % (Manual) Lymphocytes % (Manual) Monocytes % (Manual) Seg Neutrophils # Man Lymphocytes # (Manual) Monocytes # (Manual) PT INR POC ABG pH 7.154 L ABG pH POC ABG pCO2 34.3 L POC ABG pO2 73 L ABG pO2 ABG O2 Saturation ABG Base Excess ABG Hemoglobin Oxyhemoglobin Sodium Potassium Chloride Carbon Dioxide BUN Creatinine Glucose POC Glucose 60 L Lactic Acid Calcium Phosphorus Magnesium Total Bilirubin Direct Bilirubin AST ALT Alkaline Phosphatase Total Creatine Kinase CK-MB (CK-2) Troponin T C-Reactive Protein 24.90 H Total Protein Albumin Triglycerides LDL Cholesterol Direct HDL Cholesterol Free T4 Urine WBC (Auto) Urine Creatinine Salicylates Acetaminophen 03/17/19 03/17/19 03/17/19 14:37 14:37 16:05 WBC 29.3 H RBC Hgb Hct RDW 15.8 H Plt Count 45 L Seg Neuts % (Manual) 81.0 H Lymphocytes % (Manual) 1.0 L Monocytes % (Manual) 15.0 H Seg Neutrophils # Man 23.7 H Lymphocytes # (Manual) 0.3 L Monocytes # (Manual) 4.4 H PT INR POC ABG pH ABG pH POC ABG pCO2 POC ABG pO2 ABG pO2 ABG O2 Saturation ABG Base Excess ABG Hemoglobin Oxyhemoglobin Sodium Potassium Chloride Carbon Dioxide BUN Creatinine Glucose POC Glucose Lactic Acid 4.90 H* Calcium Phosphorus Magnesium Total Bilirubin Direct Bilirubin AST ALT Alkaline Phosphatase Total Creatine Kinase CK-MB (CK-2) Troponin T C-Reactive Protein Total Protein Albumin Triglycerides LDL Cholesterol Direct HDL Cholesterol Free T4 Urine WBC (Auto) 30.0 H Urine Creatinine Salicylates Acetaminophen 03/17/19 03/17/19 03/18/19 16:05 17:02 05:12 WBC RBC Hgb Hct RDW Plt Count Seg Neuts % (Manual) Lymphocytes % (Manual) Monocytes % (Manual) Seg Neutrophils # Man Lymphocytes # (Manual) Monocytes # (Manual) PT INR POC ABG pH 7.183 L 7.257 L ABG pH POC ABG pCO2 31.6 L POC ABG pO2 65 L 69 L ABG pO2 ABG O2 Saturation ABG Base Excess ABG Hemoglobin Oxyhemoglobin Sodium Potassium Chloride Carbon Dioxide BUN Creatinine Glucose POC Glucose Lactic Acid Calcium Phosphorus Magnesium Total Bilirubin Direct Bilirubin AST ALT Alkaline Phosphatase Total Creatine Kinase CK-MB (CK-2) Troponin T C-Reactive Protein Total Protein Albumin Triglycerides LDL Cholesterol Direct HDL Cholesterol Free T4 Urine WBC (Auto) Urine Creatinine 106.6 H Salicylates Acetaminophen 09/22/19 09/22/19 09/22/19 05:16 05:53 06:57 WBC RBC Hgb Hct RDW Plt Count Seg Neuts % (Manual) Lymphocytes % (Manual) Monocytes % (Manual) Seg Neutrophils # Man Lymphocytes # (Manual) Monocytes # (Manual) PT INR POC ABG pH ABG pH POC ABG pCO2 POC ABG pO2 ABG pO2 ABG O2 Saturation ABG Base Excess ABG Hemoglobin Oxyhemoglobin Sodium Potassium Chloride Carbon Dioxide BUN Creatinine Glucose POC Glucose 141 H Lactic Acid 5.00 H* 5.00 H* Calcium Phosphorus Magnesium Total Bilirubin Direct Bilirubin AST ALT Alkaline Phosphatase Total Creatine Kinase CK-MB (CK-2) Troponin T C-Reactive Protein Total Protein Albumin Triglycerides LDL Cholesterol Direct HDL Cholesterol Free T4 Urine WBC (Auto) Urine Creatinine Salicylates Acetaminophen 03/18/19 03/18/19 03/18/19 08:40 08:40 12:33 WBC 31.7 H RBC Hgb Hct RDW 15.5 H Plt Count 35 L Seg Neuts % (Manual) Lymphocytes % (Manual) Monocytes % (Manual) Seg Neutrophils # Man Lymphocytes # (Manual) Monocytes # (Manual) PT INR POC ABG pH ABG pH POC ABG pCO2 POC ABG pO2 ABG pO2 ABG O2 Saturation ABG Base Excess ABG Hemoglobin Oxyhemoglobin Sodium 132 L Potassium 5.5 H D Chloride 88.5 L Carbon Dioxide 18 L BUN 71 H Creatinine 8.1 H Glucose 205 H POC Glucose 129 H Lactic Acid Calcium 4.1 L* D Phosphorus Magnesium 2.40 H Total Bilirubin 7.50 H Direct Bilirubin AST 1088 H ALT 159 H Alkaline Phosphatase 190 H Total Creatine Kinase 869042 H CK-MB (CK-2) Troponin T C-Reactive Protein Total Protein 4.7 L Albumin 1.8 L Triglycerides LDL Cholesterol Direct HDL Cholesterol Free T4 Urine WBC (Auto) Urine Creatinine Salicylates Acetaminophen 03/18/19 03/18/19 03/18/19 12:50 13:19 13:19 WBC RBC Hgb Hct RDW Plt Count Seg Neuts % (Manual) Lymphocytes % (Manual) Monocytes % (Manual) Seg Neutrophils # Man Lymphocytes # (Manual) Monocytes # (Manual) PT INR POC ABG pH 7.282 L ABG pH POC ABG pCO2 POC ABG pO2 67 L ABG pO2 ABG O2 Saturation ABG Base Excess ABG Hemoglobin Oxyhemoglobin Sodium Potassium Chloride Carbon Dioxide BUN Creatinine Glucose POC Glucose Lactic Acid 3.30 H* Calcium 4.2 L* Phosphorus Magnesium Total Bilirubin Direct Bilirubin AST ALT Alkaline Phosphatase Total Creatine Kinase 915086 H CK-MB (CK-2) Troponin T C-Reactive Protein Total Protein Albumin Triglycerides LDL Cholesterol Direct HDL Cholesterol Free T4 Urine WBC (Auto) Urine Creatinine Salicylates Acetaminophen 03/18/19 03/18/19 03/18/19 16:50 18:11 18:20 WBC RBC Hgb Hct RDW Plt Count Seg Neuts % (Manual) Lymphocytes % (Manual) Monocytes % (Manual) Seg Neutrophils # Man Lymphocytes # (Manual) Monocytes # (Manual) PT INR POC ABG pH 7.345 L ABG pH POC ABG pCO2 POC ABG pO2 59 L 59 L ABG pO2 ABG O2 Saturation ABG Base Excess ABG Hemoglobin Oxyhemoglobin Sodium Potassium Chloride Carbon Dioxide BUN Creatinine Glucose POC Glucose 151 H Lactic Acid Calcium Phosphorus Magnesium Total Bilirubin Direct Bilirubin AST ALT Alkaline Phosphatase Total Creatine Kinase CK-MB (CK-2) Troponin T C-Reactive Protein Total Protein Albumin Triglycerides LDL Cholesterol Direct HDL Cholesterol Free T4 Urine WBC (Auto) Urine Creatinine Salicylates Acetaminophen 03/18/19 03/19/19 03/19/19 23:39 01:42 04:00 WBC 36.5 H RBC Hgb Hct RDW 15.8 H Plt Count 35 L Seg Neuts % (Manual) Lymphocytes % (Manual) Monocytes % (Manual) Seg Neutrophils # Man Lymphocytes # (Manual) Monocytes # (Manual) PT INR POC ABG pH ABG pH 7.285 L POC ABG pCO2 POC ABG pO2 ABG pO2 44.0 L ABG O2 Saturation 70.9 L ABG Base Excess -5.7 L ABG Hemoglobin 11.9 L Oxyhemoglobin 69.6 L Sodium Potassium Chloride Carbon Dioxide BUN Creatinine Glucose POC Glucose 152 H Lactic Acid Calcium Phosphorus Magnesium Total Bilirubin Direct Bilirubin AST ALT Alkaline Phosphatase Total Creatine Kinase CK-MB (CK-2) Troponin T C-Reactive Protein Total Protein Albumin Triglycerides LDL Cholesterol Direct HDL Cholesterol Free T4 Urine WBC (Auto) Urine Creatinine Salicylates Acetaminophen 03/19/19 03/19/19 03/19/19 04:00 05:35 05:49 WBC RBC Hgb Hct RDW Plt Count Seg Neuts % (Manual) Lymphocytes % (Manual) Monocytes % (Manual) Seg Neutrophils # Man Lymphocytes # (Manual) Monocytes # (Manual) PT INR POC ABG pH ABG pH 7.265 L POC ABG pCO2 POC ABG pO2 ABG pO2 35.4 L* ABG O2 Saturation 54.4 L ABG Base Excess -6.7 L ABG Hemoglobin 12.9 L Oxyhemoglobin 53.4 L Sodium 132 L Potassium 5.7 H Chloride 89.8 L Carbon Dioxide 19 L BUN 62 H Creatinine 6.4 H Glucose 151 H POC Glucose 154 H Lactic Acid Calcium 5.2 L* D Phosphorus Magnesium Total Bilirubin 7.80 H Direct Bilirubin AST 682 H ALT 130 H Alkaline Phosphatase 167 H Total Creatine Kinase CK-MB (CK-2) Troponin T C-Reactive Protein Total Protein 4.8 L Albumin 2.3 L Triglycerides LDL Cholesterol Direct HDL Cholesterol Free T4 Urine WBC (Auto) Urine Creatinine Salicylates Acetaminophen 03/19/19 03/19/19 03/19/19 09:16 09:50 09:50 WBC RBC Hgb Hct RDW Plt Count Seg Neuts % (Manual) Lymphocytes % (Manual) Monocytes % (Manual) Seg Neutrophils # Man Lymphocytes # (Manual) Monocytes # (Manual) PT INR POC ABG pH 7.222 L ABG pH POC ABG pCO2 56.6 H POC ABG pO2 ABG pO2 ABG O2 Saturation ABG Base Excess ABG Hemoglobin Oxyhemoglobin Sodium Potassium Chloride Carbon Dioxide BUN Creatinine Glucose POC Glucose Lactic Acid 2.70 H* Calcium Phosphorus Magnesium Total Bilirubin Direct Bilirubin AST ALT Alkaline Phosphatase Total Creatine Kinase 61870 H CK-MB (CK-2) Troponin T C-Reactive Protein Total Protein Albumin Triglycerides LDL Cholesterol Direct HDL Cholesterol Free T4 Urine WBC (Auto) Urine Creatinine Salicylates Acetaminophen 03/19/19 11:28 WBC RBC Hgb Hct RDW Plt Count Seg Neuts % (Manual) Lymphocytes % (Manual) Monocytes % (Manual) Seg Neutrophils # Man Lymphocytes # (Manual) Monocytes # (Manual) PT INR POC ABG pH ABG pH POC ABG pCO2 POC ABG pO2 ABG pO2 ABG O2 Saturation ABG Base Excess ABG Hemoglobin Oxyhemoglobin Sodium Potassium Chloride Carbon Dioxide BUN Creatinine Glucose POC Glucose 160 H Lactic Acid Calcium Phosphorus Magnesium Total Bilirubin Direct Bilirubin AST ALT Alkaline Phosphatase Total Creatine Kinase CK-MB (CK-2) Troponin T C-Reactive Protein Total Protein Albumin Triglycerides LDL Cholesterol Direct HDL Cholesterol Free T4 Urine WBC (Auto) Urine Creatinine Salicylates Acetaminophen Assessment and Plan Patient is a 43 y/o man w/ a history of psychiatric illness (unknown which psychiatric diagnosis he has been given in the past), who presented on 03/16/19 with altered mental status. During the course of admission, patient was found to have sepsis with septic shock, rhabdomyolysis, RUBEN, and multiorgan failure. According to the patient's clinical findings, the patient likely has toxic metabolic encephalopathy. In support of this diagnosis, the multiple metabolic derangements including multiorgan failure, sepsis, septic shock requiring pressor support, RUBEN, rhabdomyolysis. Plan: 1. Metabolic encephalopathy: - Likely due to multiple underlying metabolic derangements, including multiorgan failure, sepsis, septic shock requiring pressor support, RUBEN, rhabdomyolysis. It is uncertain as to what the infectious source is, however there is also possibility of neuroleptic malignant syndrome, as mentioned by ID. - Possible Meningo-encephalitis. Recommend LP, however platelets are currently low. Recommend for it to be done once platelets are at an acceptable level, and once patient is stable enough to tolerate. - Patient on antibiotics per ID. Recommend considering placing patient on acyclovir as well, if ok with ID team. - Will check EEG to rule out seizures. - CT head showed diffuse cerebral edema. - Recommend for repeat cerebral imaging with either CT head or MRI brain once patient is stable enough. - Continue supportive care per ICU/primary/ID teams. - Attempted to call family, however did not get a response on phone. - Will continue to monitor patient. Thank you for allowing me to take part in the care of this patient. Nahid Carroll MD Neurology
[2019-03-19] MEDS: AMIODARONE 900 MG in DEXTROSE 5% IN WATER 482 ML IV SCH (13:58)
--- NOTE | 2019-03-19 15:19 | Electroencephalogram Report ---
Electroencephalogram EEG Date of exam: 03/19/19 History: Patient is a 43 y/o man w/ a history of psychiatric illness (unknown which psychiatric diagnosis he has been given in the past), who presented on 03/16/19 with altered mental status. During the course of admission, patient was found to have sepsis with septic shock, rhabdomyolysis, RUBEN, and multiorgan failure. Description: DESCRIPTION OF THE PROCEDURE: Electrodes were applied using Paste technique in positions dictated by [employer] 10-20 system of placement. In addition to EEG data EKG and eye movements were recorded. DESCRIPTION OF ACTIVITY: At the onset of this recording, the patient is lying supine. In the background we note a 5-6 Hz theta activity that has an amplitude ranging 20-30uV. Additional low voltage rhythmic delta activity occurs at the anterior head regions bilaterally. There are no asymmetries in amplitude or frequency between hemispheres. There is significant lead artifact noted during EEG. Intermittent photic stimulation was not performed. Hyperventilation was not performed. EEG Impression: 1) Generalized slowing. 2) No seizures or epileptiform discharges CLINICAL INTERPRETATION: This routine video EEG, performed is abnormal secondary to above findings and is consistent with bi-hemispheric dysfunction and encephalopathy. The above described finding of diffuse slowing is etiologically non-specific and similar findings have been reported in cases of toxic, metabolic, hypoxic ischemic, infectious, medication, sleep deprivation, dementia,post-ictal state, and other causes of diffuse and multifocal encephalopathy.
--- NOTE | 2019-03-19 16:41 | Progress Note ---
Assessment and Plan 43 yo M with 1. septic shock 2. RUBEN 3. rhabdomyolysis 4. AMS 5. multiorgan failure 6. electrolyte abnormalities 7. right axillary cellulitis Plan: 1. neuro - sedation as needed. Neuro on board. 2. CV - wean pressors as tolerated - currently on dopamine, levophed, neosynephrine, vasopressin, abigail, DVT ppx. CBC daily - monitor thromb ocytopenia. 3. Resp - vent management per ICU, wean PEEP as tolerated 4. GI - GI ppx. keep NPO. IVF stopped due to anuria. OGT to LIWS 5. - garcia. monitor Test Driver, CK. HD per nephro 6. ID - ID on board, continue abx. LP pending improvement in plts and stability. R axillary u/s - edema, no abscess. UA + 7. Endo - blood glucose monitoring 8. Tox - UDS negative. 9. FEN - replace lytes aggressively. NPO, BMP daily Pt critically ill, on 4 pressors. He does not have evidence of peritonitis and no definitive indication for surgical intervention. Furthermore, in his current state, the patient would not survive an abdominal exploration. Recommend continuing supportive care as above. Discussed with Dr. Jj. No family at bedside - family electing for full code Will follow. Thank you, please call with questions. Subjective Date of service: 03/19/19 Narrative: Pt seen and examined. Not responsive today, on vent. PEEP requirements have increased over the last 24 hours as patient was hypoxic. Pressor requirements are decreasing. Objective Vital Signs - 12hr 03/19/19 03/19/19 03/19/19 04:45 05:01 05:15 Temperature Pulse Rate 120 H 97 H 119 H Respiratory 30 H 30 H 31 H Rate Blood Pressure 123/52 123/52 123/52 O2 Sat by Pulse 53 L 57 L 48 L Oximetry O2 Sat by Pulse Oximetry [ Anterior Bilateral Throughout] 03/19/19 03/19/19 03/19/19 05:31 05:45 06:01 Temperature Pulse Rate 91 H 95 H 93 H Respiratory 27 H 25 H 27 H Rate Blood Pressure 123/52 123/52 123/52 O2 Sat by Pulse 58 L 62 L 56 L Oximetry O2 Sat by Pulse Oximetry [ Anterior Bilateral Throughout] 03/19/19 03/19/19 03/19/19 06:15 06:27 06:31 Temperature Pulse Rate 100 H 93 H 102 H Respiratory 25 H 33 H Rate Blood Pressure 123/52 80/40 123/52 O2 Sat by Pulse 41 L 56 L 53 L Oximetry O2 Sat by Pulse Oximetry [ Anterior Bilateral Throughout] 03/19/19 03/19/19 03/19/19 06:45 07:01 07:15 Temperature Pulse Rate 88 91 H 92 H Respiratory 30 H 28 H 30 H Rate Blood Pressure 123/52 123/52 123/52 O2 Sat by Pulse 58 L 67 L 71 L Oximetry O2 Sat by Pulse Oximetry [ Anterior Bilateral Throughout] 03/19/19 03/19/19 03/19/19 07:31 07:45 08:00 Temperature 98.9 F Pulse Rate 111 H 98 H 101 H Respiratory 27 H 29 H 19 Rate Blood Pressure 123/52 123/52 O2 Sat by Pulse 69 L 58 L 60 L Oximetry O2 Sat by Pulse Oximetry [ Anterior Bilateral Throughout] 03/19/19 03/19/19 03/19/19 08:01 08:15 08:30 Temperature Pulse Rate 101 H 96 H 98 H Respiratory 31 H 21 Rate Blood Pressure 123/52 123/52 85/42 O2 Sat by Pulse 55 L 71 L 60 L Oximetry O2 Sat by Pulse Oximetry [ Anterior Bilateral Throughout] 03/19/19 03/19/19 03/19/19 08:31 08:45 09:01 Temperature Pulse Rate 95 H 95 H 94 H Respiratory 20 21 17 Rate Blood Pressure 123/52 123/52 123/52 O2 Sat by Pulse 71 L 75 L 73 L Oximetry O2 Sat by Pulse Oximetry [ Anterior Bilateral Throughout] 03/19/19 03/19/19 03/19/19 09:15 09:31 09:45 Temperature Pulse Rate 90 95 H 91 H Respiratory 16 16 17 Rate Blood Pressure 123/52 123/52 123/52 O2 Sat by Pulse 77 L 78 L 60 L Oximetry O2 Sat by Pulse Oximetry [ Anterior Bilateral Throughout] 03/19/19 03/19/19 03/19/19 10:01 10:10 10:15 Temperature 99.4 F Pulse Rate 90 89 103 H Respiratory 18 16 17 Rate Blood Pressure 123/52 104/65 101/62 O2 Sat by Pulse 65 L 62 L Oximetry O2 Sat by Pulse 65 L Oximetry [ Anterior Bilateral Throughout] 09/03/19/19 03/19/19 10:30 10:31 10:45 Temperature Pulse Rate 98 H 89 143 H Respiratory 18 18 Rate Blood Pressure 107/62 123/52 104/60 O2 Sat by Pulse 73 L 59 L Oximetry O2 Sat by Pulse Oximetry [ Anterior Bilateral Throughout] 03/19/19 03/19/19 03/19/19 11:00 11:01 11:15 Temperature Pulse Rate 130 H 137 H 137 H Respiratory 18 19 Rate Blood Pressure 122/79 123/52 118/78 O2 Sat by Pulse 65 L 59 L Oximetry O2 Sat by Pulse Oximetry [ Anterior Bilateral Throughout] 03/19/19 03/19/19 03/19/19 11:20 11:30 11:45 Temperature Pulse Rate 100 H 119 H 129 H Respiratory 16 14 Rate Blood Pressure 139/69 125/84 O2 Sat by Pulse 68 L 82 L 73 L Oximetry O2 Sat by Pulse Oximetry [ Anterior Bilateral Throughout] 03/19/19 03/19/19 03/19/19 12:00 12:15 12:30 Temperature 98 F Pulse Rate 150 H 138 H 136 H Respiratory 13 14 Rate Blood Pressure 119/72 127/70 132/76 O2 Sat by Pulse 74 L 77 L Oximetry O2 Sat by Pulse Oximetry [ Anterior Bilateral Throughout] 03/19/19 03/19/19 03/19/19 12:31 12:45 13:00 Temperature Pulse Rate 147 H 148 H 162 H Respiratory 10 L 22 15 Rate Blood Pressure 119/72 132/76 113/67 O2 Sat by Pulse 83 L 66 L Oximetry O2 Sat by Pulse Oximetry [ Anterior Bilateral Throughout] 03/19/19 03/19/19 03/19/19 13:15 13:31 13:40 Temperature 97.6 F Pulse Rate 165 H 164 H 140 H Respiratory 36 H 35 H 35 H Rate Blood Pressure 84/64 122/56 110/70 O2 Sat by Pulse 76 L 67 L Oximetry O2 Sat by Pulse 80 L Oximetry [ Anterior Bilateral Throughout] 03/19/19 03/19/19 03/19/19 13:45 14:00 14:15 Temperature Pulse Rate 158 H 164 H 168 H Respiratory 35 H 33 H 35 H Rate Blood Pressure 87/59 87/59 119/72 O2 Sat by Pulse 68 L 78 L 81 L Oximetry O2 Sat by Pulse Oximetry [ Anterior Bilateral Throughout] 0903/19/19 03/19/19 14:31 14:45 15:01 Temperature Pulse Rate 155 H 159 H 142 H Respiratory 36 H 35 H 35 H Rate Blood Pressure 123/64 123/64 108/68 O2 Sat by Pulse 82 L 84 84 Oximetry O2 Sat by Pulse Oximetry [ Anterior Bilateral Throughout] - General physical appearance Narrative Exam: General: On vent, sedated, not responsive to painful stimuli HEENT: ET tube and OG tube in place CV: S1, S2 present Respiratory: On vent Abdomen: Soft, nontender, nondistended Extremities: Generalized anasarca. R axillary cellulitis, no fluctuance or obvious drainage collection. B/L Feet are cool and toes with developing ischemia along with plantar aspects of feet : Garcia catheter - Labs 03/19/19 04:00 03/19/19 04:00 Diabetes panel 03/19/19 Range/Units 04:00 Sodium 132 L (137-145) mmol/L Potassium 5.7 H (3.6-5.0) mmol/L Chloride 89.8 L (98-107) mmol/L Carbon Dioxide 19 L (22-30) mmol/L BUN 62 H (9-20) mg/dL Creatinine 6.4 H (0.8-1.5) mg/dL Glucose 151 H (75-100) mg/dL Calcium 5.2 L* D (8.4-10.2) mg/dL AST 682 H (5-40) units/L ALT 130 H (7-56) units/L Alkaline Phosphatase 167 H (35-129) units/L Total Protein 4.8 L (6.3-8.2) g/dL Albumin 2.3 L (3.9-5) g/dL Calcium panel 03/19/19 Range/Units 04:00 Calcium 5.2 L* D (8.4-10.2) mg/dL Albumin 2.3 L (3.9-5) g/dL Pituitary panel 03/19/19 Range/Units 04:00 Sodium 132 L (137-145) mmol/L Potassium 5.7 H (3.6-5.0) mmol/L Chloride 89.8 L (98-107) mmol/L Carbon Dioxide 19 L (22-30) mmol/L BUN 62 H (9-20) mg/dL Creatinine 6.4 H (0.8-1.5) mg/dL Glucose 151 H (75-100) mg/dL Calcium 5.2 L* D (8.4-10.2) mg/dL Adrenal panel 03/19/19 Range/Units 04:00 Sodium 132 L (137-145) mmol/L Potassium 5.7 H (3.6-5.0) mmol/L Chloride 89.8 L (98-107) mmol/L Carbon Dioxide 19 L (22-30) mmol/L BUN 62 H (9-20) mg/dL Creatinine 6.4 H (0.8-1.5) mg/dL Glucose 151 H (75-100) mg/dL Calcium 5.2 L* D (8.4-10.2) mg/dL Total Bilirubin 7.80 H (0.1-1.2) mg/dL AST 682 H (5-40) units/L ALT 130 H (7-56) units/L Alkaline Phosphatase 167 H (35-129) units/L Total Protein 4.8 L (6.3-8.2) g/dL Albumin 2.3 L (3.9-5) g/dL
[2019-03-19] MEDS ORDERED: fentaNYL 100 MCG/2 ML INJ IV PRN (18:33)
[2019-03-19] MEDS ORDERED: DEXTROSE 50% IN WATER (25GM) 50 ML VIAL IV PRN (18:39)
[2019-03-19] MEDS: DEXTROSE 5% IN WATER 1,000 ML IV SCH (19:02)
[2019-03-19] MEDS: IPRATROPIUM/ALBUTEROL SULFATE 3 ML AMPUL.NEB IH SCH ×2 (19:43→23:51)
--- NOTE | 2019-03-19 21:45 | Procedure Note ---
STAFF SURGEON: Dr. Mejia Suarez. PREOPERATIVE DIAGNOSIS: Acute renal failure. POSTOPERATIVE DIAGNOSIS: Acute renal failure. PROCEDURE PERFORMED: Right IJ Vas-Cath insertion. COMPLICATIONS: None. ESTIMATED BLOOD LOSS: Less than 10 mL. ANESTHESIA: Local. INDICATION FOR PROCEDURE: This is a 43-year-old gentleman who presented with multisystem organ failure including deteriorating renal function and for concern of worsening acidosis. A vascular consultation was obtained for a temporary dialysis catheter insertion. The patient's family were explained the risks, benefits, alternatives of the procedure, expressed understanding and wished to proceed. DESCRIPTION OF THE PROCEDURE: After appropriate consent was obtained, the right neck and chest were prepped and draped in the usual sterile fashion with ChloraPrep. Appropriate timeout was performed. We then proceeded to obtain percutaneous access of the right internal jugular vein using the 18-gauge needle under ultrasound guidance, also obtained access. A stiff J-wire was placed into the right side of the heart. The needle was removed. The access site was dilated appropriately and then a 15 cm 13-Sinhala Vas-Cath was placed over the wire into the SVC. Wire was removed. Both lumens stephany blood appropriately, were flushed with saline and appropriate amount of heparin was placed in each port. Catheter was sutured in place with a 2-0 nylon and appropriate dressing was placed. The patient tolerated the procedure well and chest x-ray was obtained after the procedure, demonstrating adequate placement without evidence of pneumothorax. JOB# [id number] JEVON/DEREK
--- NOTE | 2019-03-20 02:15 | XRay Report ---
CHEST 1 VIEW 03/20/2019 1:58 AM INDICATION / CLINICAL INFORMATION: follow up respiratory failure. COMPARISON: Chest x-ray on 03/19/2019. FINDINGS: SUPPORT DEVICES: Stable satisfactory device positioning. HEART / MEDIASTINUM: Stable. LUNGS / PLEURA: Mildly improved pulmonary edema. No pneumothorax. ADDITIONAL FINDINGS: No significant additional findings. IMPRESSION: 1. Mildly improved pulmonary edema compared with 03/09/2019. Signer Name: Stuart Pacheco MD Signed: 03/20/2019 2:10 AM Workstation Name: [email or web address]
[2019-03-20] MEDS: NORepinephrine 8 MG in SODIUM CHLORIDE 0.9% 250ML 242 ML IV SCH ×5 (02:52→20:06)
[2019-03-20] MEDS: VASOPRESSIN 20 UNIT in SODIUM CHLORIDE 0.9% 100 ML IV SCH ×2 (03:32→14:45)
[2019-03-20] MEDS: HYDROCORTISONE SOD SUCC 100 MG/2 ML VIAL IV SCH ×3 (03:37→20:03)
[2019-03-20] MEDS: IPRATROPIUM/ALBUTEROL SULFATE 3 ML AMPUL.NEB IH SCH ×5 (04:09→20:34)
[2019-03-20] MEDS: AMIODARONE 900 MG in DEXTROSE 5% IN WATER 482 ML IV SCH ×2 (04:43→18:21)
[2019-03-20] MEDS: MIDODRINE 5 MG TAB PO SCH ×4 (04:43→20:03)
[2019-03-20] MEDS: DOPamine/D5W 800 MG/250 ML 800 MG/250 ML BAG IV SCH (07:21)
[2019-03-20] MEDS: MIDAZOLAM 2 MG/2 ML INJ IV PRN ×3 (09:19→14:23)
[2019-03-20] MEDS: FAMOTIDINE 20 MG/2 ML INJ IV SCH (09:19)
--- NOTE | 2019-03-20 09:20 | Progress Note ---
Assessment and Plan 1. Acute kidney injury: Vasomotor RUBEN in the setting of shock / volume depletion / Rhabdo. Baseline renal function is unknown. Patient remain anuric. CT abdomen was negative for obstructive nephropathy. Monitor renal function. Renal prognosis is guarded. Avoid nephrotoxic agents. Meds dosage based on GFR. Patient was started on hemodialysis on 03/18/19 due to worsening metabolic acidosis and hyperkalemia. Hemodialysis: 03/18, 03/19, today. 2. FEN: Hyperkalemia, improved. Hyponatremia, monitor. Metabolic acidosis, 2/2 Lactic acidosis. Volume overload, UF with HD as tolerated. Monitor lytes. 3. Septic shock: On broad spectrum Abx. Followed by ID. Currently on Midodrine and 3 different IV pressors. Follow cultures. 4. Rhabdomyolysis: Follow CK level. 5. SVT / V.tach: Followed by Cards. 6. Respiratory failure: On vent. 7. Multiple organ failure. 8. Elevated transaminases. 9. Encephalopathy: Followed by Neuro. Subjective Date of service: 03/20/19 Principal diagnosis: Septic Shock; Ac. hypoxemic resp failure; Renzo. PNA; Rhabdomyolysis; RUBEN Interval history: Patient was seen and examined at the bedside. Remain on the vent. Objective - Vital Signs Vital signs: Vital Signs - 12hr 03/19/19 03/19/19 03/19/19 21:30 21:45 22:00 Temperature Pulse Rate 77 77 77 Pulse Rate [ Anterior Bilateral Throughout] Pulse Rate [ From Monitor] Respiratory 15 15 15 Rate Respiratory Rate [Anterior Bilateral Throughout] Blood Pressure 163/79 134/80 132/82 O2 Sat by Pulse 100 100 100 Oximetry 03/19/19 03/19/19 03/19/19 22:15 22:30 22:45 Temperature Pulse Rate 78 77 77 Pulse Rate [ Anterior Bilateral Throughout] Pulse Rate [ From Monitor] Respiratory 15 15 15 Rate Respiratory Rate [Anterior Bilateral Throughout] Blood Pressure 131/81 127/80 122/74 O2 Sat by Pulse 100 100 100 Oximetry 03/19/19 03/19/19 03/19/19 23:00 23:14 23:15 Temperature 99.1 F Pulse Rate 77 78 Pulse Rate [ Anterior Bilateral Throughout] Pulse Rate [ From Monitor] Respiratory 15 15 Rate Respiratory Rate [Anterior Bilateral Throughout] Blood Pressure 125/75 116/74 O2 Sat by Pulse 99 100 Oximetry 03/19/19 03/19/19 03/19/19 23:30 23:45 23:50 Temperature Pulse Rate 78 79 80 Pulse Rate [ 79 Anterior Bilateral Throughout] Pulse Rate [ From Monitor] Respiratory 15 15 Rate Respiratory 15 Rate [Anterior Bilateral Throughout] Blood Pressure 109/69 108/69 103/72 O2 Sat by Pulse 100 99 100 Oximetry 03/20/19 03/20/19 03/20/19 00:00 00:15 00:31 Temperature Pulse Rate 79 79 83 Pulse Rate [ Anterior Bilateral Throughout] Pulse Rate [ 82 From Monitor] Respiratory 15 15 15 Rate Respiratory Rate [Anterior Bilateral Throughout] Blood Pressure 113/63 109/67 104/67 O2 Sat by Pulse 100 100 100 Oximetry 03/20/19 03/20/19 03/20/19 00:45 01:00 01:15 Temperature Pulse Rate 81 81 81 Pulse Rate [ Anterior Bilateral Throughout] Pulse Rate [ From Monitor] Respiratory 15 15 15 Rate Respiratory Rate [Anterior Bilateral Throughout] Blood Pressure 105/67 112/68 112/67 O2 Sat by Pulse 100 100 100 Oximetry 03/20/19 03/20/19 03/20/19 01:30 01:45 02:01 Temperature Pulse Rate 81 83 83 Pulse Rate [ Anterior Bilateral Throughout] Pulse Rate [ From Monitor] Respiratory 15 15 15 Rate Respiratory Rate [Anterior Bilateral Throughout] Blood Pressure 105/65 110/69 105/67 O2 Sat by Pulse 100 100 100 Oximetry 03/20/19 03/20/19 03/20/19 02:15 02:31 02:45 Temperature Pulse Rate 82 84 82 Pulse Rate [ Anterior Bilateral Throughout] Pulse Rate [ From Monitor] Respiratory 15 15 Rate Respiratory Rate [Anterior Bilateral Throughout] Blood Pressure 107/68 107/68 129/77 O2 Sat by Pulse 99 100 100 Oximetry 03/20/19 03/20/19 03/20/19 03:00 03:07 03:15 Temperature 99.6 F Pulse Rate 81 83 Pulse Rate [ Anterior Bilateral Throughout] Pulse Rate [ From Monitor] Respiratory 16 15 Rate Respiratory Rate [Anterior Bilateral Throughout] Blood Pressure 129/77 134/81 O2 Sat by Pulse 100 100 Oximetry 03/20/19 03/20/19 03/20/19 03:30 03:45 04:00 Temperature Pulse Rate 82 82 82 Pulse Rate [ Anterior Bilateral Throughout] Pulse Rate [ 75 From Monitor] Respiratory 15 15 15 Rate Respiratory Rate [Anterior Bilateral Throughout] Blood Pressure 138/84 140/87 147/91 O2 Sat by Pulse 100 100 99 Oximetry 03/20/19 03/20/19 03/20/19 04:15 04:30 04:45 Temperature Pulse Rate 82 82 83 Pulse Rate [ 80 Anterior Bilateral Throughout] Pulse Rate [ From Monitor] Respiratory 14 15 15 Rate Respiratory 17 Rate [Anterior Bilateral Throughout] Blood Pressure 147/91 148/100 165/93 O2 Sat by Pulse 100 100 100 Oximetry 03/20/19 03/20/19 03/20/19 05:00 05:15 05:30 Temperature Pulse Rate 83 81 81 Pulse Rate [ Anterior Bilateral Throughout] Pulse Rate [ From Monitor] Respiratory 15 15 15 Rate Respiratory Rate [Anterior Bilateral Throughout] Blood Pressure 164/99 164/99 164/112 O2 Sat by Pulse 98 96 95 Oximetry 03/20/19 03/20/19 03/20/19 05:45 06:01 06:15 Temperature Pulse Rate 75 74 75 Pulse Rate [ Anterior Bilateral Throughout] Pulse Rate [ From Monitor] Respiratory 15 15 15 Rate Respiratory Rate [Anterior Bilateral Throughout] Blood Pressure 161/99 133/75 102/64 O2 Sat by Pulse 98 98 98 Oximetry 03/20/19 03/20/19 03/20/19 06:30 06:45 07:00 Temperature Pulse Rate 74 73 73 Pulse Rate [ Anterior Bilateral Throughout] Pulse Rate [ From Monitor] Respiratory 15 15 14 Rate Respiratory Rate [Anterior Bilateral Throughout] Blood Pressure 107/68 110/73 115/77 O2 Sat by Pulse 97 99 96 Oximetry 03/20/19 03/20/19 03/20/19 07:15 07:30 07:45 Temperature Pulse Rate 73 71 72 Pulse Rate [ Anterior Bilateral Throughout] Pulse Rate [ From Monitor] Respiratory 15 15 15 Rate Respiratory Rate [Anterior Bilateral Throughout] Blood Pressure 115/77 117/75 124/85 O2 Sat by Pulse 96 96 97 Oximetry 03/20/19 03/20/19 03/20/19 07:48 08:00 08:15 Temperature 98.2 F Pulse Rate 72 72 72 Pulse Rate [ 71 Anterior Bilateral Throughout] Pulse Rate [ 75 From Monitor] Respiratory 15 15 15 Rate Respiratory 15 Rate [Anterior Bilateral Throughout] Blood Pressure 111/77 128/86 133/89 O2 Sat by Pulse 97 98 99 Oximetry 03/20/19 03/20/19 03/20/19 08:30 08:45 09:00 Temperature Pulse Rate 72 72 72 Pulse Rate [ Anterior Bilateral Throughout] Pulse Rate [ From Monitor] Respiratory 15 15 15 Rate Respiratory Rate [Anterior Bilateral Throughout] Blood Pressure 137/90 146/85 129/84 O2 Sat by Pulse 98 98 97 Oximetry - General Appearance General appearance: well-developed, well-nourished, appears stated age, obese, intubated, other (on vent, R IJ temp catheter) EENT: ATNC, other (pupils are equal) Neck: supple Respiratory: Present: Other (coarse breath sounds) Cardiology: regular, S1S2, no murmurs Gastrointestinal: no tenderness, obese Integumentary: no rash, warm and dry Neurologic: other (slight grimace) Musculoskeletal: other (no edema) - Lab 03/20/19 09:30 03/20/19 09:30 Most recent lab results ABG pH 7.265 pH Units (7.350-7.450) L 03/19/19 05:35 ABG pCO2 45.5 mm Hg 03/19/19 05:35 ABG pO2 35.4 mm Hg (80.0-90.0) L* 03/19/19 05:35 ABG HCO3 20.2 mmol/L (20.0-26.0) 03/19/19 05:35 ABG O2 Saturation 54.4 % (95.0-99.0) L 03/19/19 05:35 Calcium 5.2 mg/dL (8.4-10.2) L* D 03/19/19 04:00 Phosphorus 7.30 mg/dL (2.5-4.5) H 03/17/19 03:45 Magnesium 2.40 mg/dL (1.7-2.3) H 03/18/19 08:40 106.6 mg/dL (0.1-20.0) H 03/17/19 16:05 95 mmol/L 03/17/19 16:05 Medications & Allergies - Medications Allergies/Adverse Reactions: Allergies No Known Allergies Allergy (Unverified 03/16/19 17:17) Home Medications: Home Medications Medication Instructions Recorded Confirmed Last Taken Type Unobtainable 03/18/19 03/18/19 Unknown History Active Medications: Generic Name Dose Route Start Last Admin Trade Name Freq PRN Reason Stop Dose Admin Acetaminophen 650 mg 03/16/19 22:22 03/17/19 18:49 Tylenol NH 650 mg Q4H PRN Administration Fever >101 Albuterol/Ipratropium 1 ampul 03/19/19 20:00 03/20/19 07:52 Duoneb *Not For Prn Use* IH 1 ampul Q4HRT PAOLO Administration Lipase/Protease/Amylase 1 each 03/17/19 14:[address] 10,500 Unit FEEDTUBE PRN PRN For Clogged Feeding Tube Dextrose 50 gm 03/19/19 18:39 D50w (25gm) Vial IV PRN PRN Hypoglycemia Famotidine 20 mg 03/20/19 10:00 03/20/19 09:19 Pepcid IV 20 mg DAILY PAOLO Administration Fentanyl 50 mcg 03/16/19 16:06 03/16/19 17:02 Sublimaze IV 50 mcg Q10MIN PRN Administration ANALGESIA Fentanyl 25 mcg 03/19/19 18:33 03/20/19 02:53 Sublimaze IV 25 mcg Q2H PRN Administration Pain, Moderate (4-6) Hydrocortisone Sodium Succinate 100 mg 03/18/19 20:00 03/20/19 03:37 Solu-Cortef IV 100 mg Q8H PAOLO Administration Hydrophilic Ointment 1 applic 03/16/19 15:50 Vaseline Lip Therapy TP Q2HR PRN Dry Lips Midazolam HCl 100 mg/ Sodium 100 mls @ 2 mls/hr 03/16/19 16:00 03/19/19 18:45 Chloride IV 0 mg/hr TITR PAOLO 0 mls/hr Titration Protocol 2 MG/HR Fentanyl Citrate 2,000 mcg in 100 mls @ 6.804 mls/hr 03/16/19 17:00 03/19/19 18:53 Fentanyl Drip Premix IV 0 mcg/kg/hr TITR PAOLO 0 mls/hr Titration Protocol 1 MCG/KG/HR Vasopressin 20 unit/ Sodium 101 mls @ 9.09 mls/hr 03/16/19 23:45 03/20/19 03:32 Chloride IV 0.03 units/min TITR PAOLO 9.09 mls/hr Administration Protocol 0.03 UNITS/MIN Norepinephrine 8 mg/ Sodium 250 mls @ 3.75 mls/hr 03/17/19 02:00 03/20/19 09:04 Chloride IV 25 mcg/min TITR PAOLO 46.875 mls/hr Titration Protocol 2 MCG/MIN Phenylephrine HCl 100 mg/ 100 mls @ 3 mls/hr 03/17/19 02:30 03/19/19 18:48 Sodium Chloride IV Infused TITR PAOLO Titration Protocol 50 MCG/MIN Ceftriaxone Sodium 2 gm in 100 mls @ 200 mls/hr 03/17/19 12:00 03/19/19 22:06 Rocephin/Ns 2 Gm/100 Ml IV 200 mls/hr Q12HR PAOLO Administration Protocol Doxycycline Hyclate 100 mg/ 250 mls @ 250 mls/hr 03/17/19 12:00 03/19/19 22:30 Sodium Chloride IV 250 mls/hr Q12HR PAOLO Administration Protocol Dopamine HCl/Dextrose 800 mg in 250 mls @ 5.103 mls/hr 03/17/19 23:00 03/20/19 07:21 Intropin Drip 800 Mg/D5w 250 Ml IV 2 mcg/kg/min TITR PAOLO 5.103 mls/hr Administration Protocol 2 MCG/KG/MIN Amiodarone HCl 900 mg/ 500 mls @ 33.333 mls/hr 03/18/19 17:00 03/20/19 04:43 Dextrose IV 1 mg/min DIRECT PAOLO 33.333 mls/hr Administration Protocol 1 MG/MIN Sodium Chloride 100 mls @ 999 mls/hr 03/19/19 09:28 Nacl 0.9% IV NEYMAR PRN Hypotension Dextrose 1,000 mls @ 50 mls/hr 03/19/19 19:00 03/19/19 19:02 D5w IV 50 mls/hr DIRECT PAOLO Administration Midazolam HCl 2 mg 03/16/19 15:50 03/20/19 09:19 Versed IV 2 mg Q10MIN PRN Administration Sedation Midodrine 10 mg 03/18/19 20:00 03/20/19 04:43 Proamatine PO 10 mg Q8H PAOLO Administration Multi-Ingred Cream/Lotion/Oil/Oint 1 applic 03/16/19 15:50 03/19/19 20:10 Artificial Tears Ophth Oint OU 1 applic Q4HR PRN Administration Dry Eye(s) Ondansetron HCl 4 mg 03/16/19 22:21 Zofran IV Q8H PRN Nausea And Vomiting Simple Syrup 15 ml 03/17/19 14:45 Simple Syrup FEEDTUBE PRN PRN Hypoglycemia Simple Syrup 30 ml 03/17/19 14:45 Simple Syrup FEEDTUBE PRN PRN Hypoglycemia Sodium Bicarbonate 325 mg 03/17/19 14:45 Sodium Bicarbonate FEEDTUBE PRN PRN For Clogged Feeding Tube
[2019-03-20 10:00] LABS: Hemoglobin 12.7 gm/dl (11.8-15.2); Mean Corpuscular HGB Conc 34 % (32-34); Mean Corpuscular Volume 84 fl (84-94); Red Blood Count 4.54 M/mm3 (3.65-5.03); Red Cell Distribution Width 15.5 % (13.2-15.2)
--- NOTE | 2019-03-20 10:07 | Progress Note ---
Assessment and Plan Pt developed AFib with RVR yesterday during dialysis and subsequently converted back to SR overnight, remains in SR, cont amio gtt. No systemic AC at this time in regards to AFib due to severe thrombocytopenia. He continues to require multiple vasopressors. Continue supportive measures. Neurology input noted. Can consider ischemic evaluation if/when medically stabilized. Overall guarded prognosis. The patient has been seen in conjunction with Dr. Echavarria who agrees with the assessment and plan of care. - Patient Problems (1) Cardiopulmonary arrest Current Visit: Yes Status: Acute (2) Acute respiratory failure Current Visit: Yes Status: Acute (3) SVT (supraventricular tachycardia) Current Visit: Yes Status: Resolved (4) Torsades de pointes Current Visit: Yes Status: Acute (5) Ventricular tachycardia Current Visit: Yes Status: Acute (6) Altered mental status Current Visit: Yes Status: Acute (7) Septic shock Current Visit: Yes Status: Acute (8) Aspiration pneumonia Current Visit: Yes Status: Acute (9) Acute renal failure Current Visit: Yes Status: Acute (10) Elevated LFTs Current Visit: Yes Status: Acute (11) Thrombocytopenia Current Visit: Yes Status: Acute (12) Enteritis Current Visit: Yes Status: Suspected Subjective Date of service: 03/20/19 Principal diagnosis: Septic Shock; Ac. hypoxemic resp failure; Renzo. PNA; Rhabdomyolysis; RUBEN Interval history: pt remains intubated, moving arms and legs, no purposeful response noted, requiring multiple vasopressors, on amio gtt. in SR on tele, developed AFib RVR yesterday during dialysis. no family at bedside. Objective Last Vital Signs Temp 98.2 F 03/20/19 08:00 Pulse 72 03/20/19 09:00 Resp 15 03/20/19 09:00 BP 129/84 03/20/19 09:00 Pulse Ox 97 03/20/19 09:00 - Physical Examination General: Other (intubated) HEENT: Positive: PERRL Neck: Positive: neck supple Cardiac: Positive: Reg Rate and Rhythm, S1/S2 Lungs: Positive: Decreased Breath Sounds, Oxygen, Ventilated Respirations Neuro: Positive: Other (intubated) Abdomen: Positive: Unremarkable /Rectal: Other (deferred) Skin: Positive: Clear Musculoskeletal: Decreased Range of Motion Extremities: Present: lower extr. pulses (weak, thready ) - Imaging and Cardiology Echo: report reviewed ( EF 40-45%, impaired relaxation. ) - Telemetry EKG Rhythm: Sinus Rhythm - Allied health notes Allied health notes reviewed: nursing
[2019-03-20 10:26] LABS: Albumin 2.3 g/dL (3.9-5)
[2019-03-20] MEDS: cefTRIAXone/NS 2 GM/100 ML 2 GM/100 ML BAG IV SCH ×2 (10:46→21:21)
[2019-03-20] MEDS: DOXYCYCLINE HYCLATE 100 MG in SODIUM CHLORIDE 0.9% 250ML 250 ML IV SCH ×2 (10:47→22:02)
[2019-03-20] MEDS ORDERED: SODIUM CHLORIDE 0.9% 100 ML IV PRN (11:00)
[2019-03-20 11:02] LABS: Calcium 5.3 mg/dL (8.4-10.2)
[2019-03-20] MEDS ORDERED: CALCIUM GLUCONATE 2,000 MG in SODIUM CHLORIDE 0.9% 100 ML IV ONE (11:42)
--- NOTE | 2019-03-20 11:45 | Consultation ---
History of Present Illness - Reason for Consult Consult date: 03/20/19 Reason for consult: Mental Health Evaluation Requesting physician: SANDRA GRIFFIN - Chief Complaint Chief complaint: The patient is intubated - History of Present Psychiatric Illness 43 y.o. white male who presented to the ER for AMS. Psychiatry was consulted for NMS. Today the patient was intubated during the assessment. The patient does not follow commands, but respond to tactile stimulation. The patient is somewhat rigid and edematous. The patient is visiting a friend in the local area the past week. The patient's residence is in [place]. He became ill the past 2 days and was brought to the ER. Per the record, the patient has a hx of mental health. Medications and Allergies Allergies Allergy/AdvReac Type Severity Reaction Status Date / Time No Known Allergies Allergy Unverified 03/16/19 17:17 Home Medications Medication Instructions Recorded Confirmed Last Taken Type Unobtainable 03/18/19 03/18/19 Unknown History Active Meds: Active Medications Acetaminophen (Tylenol) 650 mg ID Q4H PRN PRN Reason: Fever >101 Last Admin: 03/17/19 18:49 Dose: 650 mg Documented by: Albuterol/Ipratropium (Duoneb *Not For Prn Use*) 1 ampul IH Q4HRT [facility] Last Admin: 03/20/19 07:52 Dose: 1 ampul Documented by: Lipase/Protease/Amylase (Pancrekarly Purcell 10,500 Unit) 1 each FEEDTUBE PRN PRN PRN Reason: For Clogged Feeding Tube Dextrose (D50w (25gm) Vial) 50 gm IV PRN PRN PRN Reason: Hypoglycemia Famotidine (Pepcid) 20 mg IV DAILY [facility] Last Admin: 03/20/19 09:19 Dose: 20 mg Documented by: Fentanyl (Sublimaze) 50 mcg IV Q10MIN PRN PRN Reason: ANALGESIA Last Admin: 03/16/19 17:02 Dose: 50 mcg Documented by: Fentanyl (Sublimaze) 25 mcg IV Q2H PRN PRN Reason: Pain, Moderate (4-6) Last Admin: 03/20/19 02:53 Dose: 25 mcg Documented by: Hydrocortisone Sodium Succinate (Solu-Cortef) 100 mg IV Q8H [facility] Last Admin: 03/20/19 03:37 Dose: 100 mg Documented by: Hydrophilic Ointment (Vaseline Lip Therapy) 1 applic TP Q2HR PRN PRN Reason: Dry Lips Midazolam HCl 100 mg/ Sodium (Chloride) 100 mls @ 2 mls/hr IV TITR PAOLO; Protocol Last Titration: 03/19/19 18:45 Dose: 0 mg/hr, 0 mls/hr Documented by: Fentanyl Citrate (Fentanyl Drip Premix) 2,000 mcg in 100 mls @ 6.804 mls/hr IV TITR PAOLO; Protocol Last Titration: 03/19/19 18:53 Dose: 0 mcg/kg/hr, 0 mls/hr Documented by: Vasopressin 20 unit/ Sodium (Chloride) 101 mls @ 9.09 mls/hr IV TITR PAOLO; Protocol Last Admin: 03/20/19 03:32 Dose: 0.03 units/min, 9.09 mls/hr Documented by: Norepinephrine 8 mg/ Sodium (Chloride) 250 mls @ 3.75 mls/hr IV TITR PAOLO; Protocol Last Titration: 03/20/19 11:28 Dose: 25 mcg/min, 46.875 mls/hr Documented by: Phenylephrine HCl 100 mg/ (Sodium Chloride) 100 mls @ 3 mls/hr IV TITR PAOLO; Protocol Last Titration: 03/19/19 18:48 Dose: Infused Documented by: Ceftriaxone Sodium (Rocephin/Ns 2 Gm/100 Ml) 2 gm in 100 mls @ 200 mls/hr IV Q12HR PAOLO; Protocol Last Admin: 03/20/19 10:46 Dose: 200 mls/hr Documented by: Doxycycline Hyclate 100 mg/ (Sodium Chloride) 250 mls @ 250 mls/hr IV Q12HR PAOLO; Protocol Last Admin: 03/20/19 10:47 Dose: 250 mls/hr Documented by: Dopamine HCl/Dextrose (Intropin Drip 800 Mg/D5w 250 Ml) 800 mg in 250 mls @ 5.103 mls/hr IV TITR PAOLO; Protocol Last Admin: 03/20/19 07:21 Dose: 2 mcg/kg/min, 5.103 mls/hr Documented by: Amiodarone HCl 900 mg/ (Dextrose) 500 mls @ 33.333 mls/hr IV DIRECT PAOLO; Protocol Last Admin: 03/20/19 04:43 Dose: 1 mg/min, 33.333 mls/hr Documented by: Dextrose (D5w) 1,000 mls @ 50 mls/hr IV DIRECT PAOLO Last Admin: 03/19/19 19:02 Dose: 50 mls/hr Documented by: Sodium Chloride (Nacl 0.9%) 100 mls @ 999 mls/hr IV NEYMAR PRN PRN Reason: Hypotension Midazolam HCl (Versed) 2 mg IV Q10MIN PRN PRN Reason: Sedation Last Admin: 03/20/19 11:15 Dose: 2 mg Documented by: Midodrine (Proamatine) 10 mg PO Q8H PAOLO Last Admin: 03/20/19 04:43 Dose: 10 mg Documented by: Multi-Ingred Cream/Lotion/Oil/Oint (Artificial Tears Ophth Oint) 1 applic OU Q4HR PRN PRN Reason: Dry Eye(s) Last Admin: 03/19/19 20:10 Dose: 1 applic Documented by: Ondansetron HCl (Zofran) 4 mg IV Q8H PRN PRN Reason: Nausea And Vomiting Simple Syrup (Simple Syrup) 15 ml FEEDTUBE PRN PRN PRN Reason: Hypoglycemia Simple Syrup (Simple Syrup) 30 ml FEEDTUBE PRN PRN PRN Reason: Hypoglycemia Sodium Bicarbonate (Sodium Bicarbonate) 325 mg FEEDTUBE PRN PRN PRN Reason: For Clogged Feeding Tube Past psychiatric history - Past Medical History Past Medical History: other (Unable to obtain ) Past Surgical History: Other (Unable to obtain ) - past Psychiatric treatment and history psychiatric treatment history: Per the record, the patient has a hx of mental health. Unable to obtain a fam psy hx. - Social History Social history: other (Reside with a friend) Mental Status Exam - Vital signs Last Vital Signs Temp 98.2 F 03/20/19 08:00 Pulse 74 03/20/19 11:01 Resp 15 03/20/19 11:01 BP 125/82 03/20/19 11:01 Pulse Ox 97 03/20/19 11:01 - Exam Narrative exam: Unable to complete the MSE because of the patient's condition. Results Result Diagrams: 03/21/19 04:26 03/21/19 04:26 Abnormal lab results 03/16/19 03/19/19 03/19/19 Range/Units 15:32 11:28 17:58 WBC (4.5-11.0) K/mm3 RDW (13.2-15.2) % POC ABG pH 7.250 L (7.35-7.45) POC ABG pCO2 52.6 H (35-45) POC ABG pO2 (80-105) Sodium (137-145) mmol/L Chloride (98-107) mmol/L Carbon Dioxide (22-30) mmol/L BUN (9-20) mg/dL Creatinine (0.8-1.5) mg/dL Glucose (75-100) mg/dL POC Glucose 118 H 160 H (70-105) Calcium (8.4-10.2) mg/dL Total Bilirubin (0.1-1.2) mg/dL AST (5-40) units/L ALT (7-56) units/L Alkaline Phosphatase (35-129) units/L Total Protein (6.3-8.2) g/dL Albumin (3.9-5) g/dL 03/19/19 03/19/19 03/20/19 Range/Units 19:48 21:03 02:16 WBC (4.5-11.0) K/mm3 RDW (13.2-15.2) % POC ABG pH 7.279 L (7.35-7.45) POC ABG pCO2 50.3 H (35-45) POC ABG pO2 129 H (80-105) Sodium (137-145) mmol/L Chloride (98-107) mmol/L Carbon Dioxide (22-30) mmol/L BUN (9-20) mg/dL Creatinine (0.8-1.5) mg/dL Glucose (75-100) mg/dL POC Glucose 119 H 119 H (70-105) Calcium (8.4-10.2) mg/dL Total Bilirubin (0.1-1.2) mg/dL AST (5-40) units/L ALT (7-56) units/L Alkaline Phosphatase (35-129) units/L Total Protein (6.3-8.2) g/dL Albumin (3.9-5) g/dL 03/20/19 03/20/19 03/20/19 Range/Units 04:23 05:05 09:30 WBC 36.3 H (4.5-11.0) K/mm3 RDW 15.5 H (13.2-15.2) % POC ABG pH (7.35-7.45) POC ABG pCO2 (35-45) POC ABG pO2 280 H (80-105) Sodium (137-145) mmol/L Chloride (98-107) mmol/L Carbon Dioxide (22-30) mmol/L BUN (9-20) mg/dL Creatinine (0.8-1.5) mg/dL Glucose (75-100) mg/dL POC Glucose 115 H (70-105) Calcium (8.4-10.2) mg/dL Total Bilirubin (0.1-1.2) mg/dL AST (5-40) units/L ALT (7-56) units/L Alkaline Phosphatase (35-129) units/L Total Protein (6.3-8.2) g/dL Albumin (3.9-5) g/dL 03/20/19 Range/Units 09:30 WBC (4.5-11.0) K/mm3 RDW (13.2-15.2) % POC ABG pH (7.35-7.45) POC ABG pCO2 (35-45) POC ABG pO2 (80-105) Sodium 131 L (137-145) mmol/L Chloride 92.3 L (98-107) mmol/L Carbon Dioxide 20 L (22-30) mmol/L BUN 68 H (9-20) mg/dL Creatinine 6.1 H (0.8-1.5) mg/dL Glucose 164 H (75-100) mg/dL POC Glucose (70-105) Calcium 5.3 L* (8.4-10.2) mg/dL Total Bilirubin 9.50 H (0.1-1.2) mg/dL AST 381 H (5-40) units/L ALT 116 H (7-56) units/L Alkaline Phosphatase 255 H (35-129) units/L Total Protein 5.1 L (6.3-8.2) g/dL Albumin 2.3 L (3.9-5) g/dL All other labs normal. Assessment and Plan Assessment and plan: Impression: R/O NMS. [place] [address]+. Cr 6.4. NA 132. WBC 36.5. Medical: Multi-Organ failure, Septic Shock, Severe Sepsis, Rhabdomyolysis, Thrombocytopenia, The patient is receiving dialysis, Prognosis is poor per the medical staff Recommendation/Plan: Recommend supportive care by the medical staff. Recommend Dantrolene IV to lessen muscle rigidity. Obtain collateral information from ANTON (brother). Hold all antipsychotics at this time, Staffed with Dr Millie Li.
[2019-03-20 12:04] LABS: Platelet Count 29 K/mm3 (140-440)
--- NOTE | 2019-03-20 12:15 | Progress Note ---
Assessment and Plan Cultures: 03/16/2019 sputum: salivary contamination 03/16/2019 Blood culture: no growth 03/17/2019 Urine culture no growth 03/17/2019 throat culture: no growth Assessment: 43/M with ?psych history: 1) Refractory septic shock: remains on multiple pressors, HD, intubated on the vent. Leukocytosis +, fever trending down. ?Infectious etiology. Possibility of Neuroleptic Malignant Syndrome given psych history, high fever of 105F and extremely elevated CPK of >100K. Unclear if he was on any psych med. From ID standpoint, continue broad coverage for acute bacterial meningitis, tick borne illness, aspiration pneumonia. Blood culture negative so far. UA with mild p yuria. HIV rapid negative. Strep A rapid ag negative. 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 He lives in a hotel in a [place] neighborhood in [place] and believes he has been intermittently homeless. He met his friend Gio, who brought him to [place]. Brother denies any history of drug abuse or alcohol abuse but reports history of mental disorder, he has never received treatment. His parent do not talk to him. He denies homosexual behavior but does not have clear why he is in so close contact with new friend Gio here in [place]. Brother does not know anything about his symptoms as he spoke with him last time 3 months ago. 2) Probable aspiration pneumonia 3) Acute respiratory failure: on 100% FiO2 4) ?Right axillary edema: no abscess, US no collection seen 5) Acute encephalopathy: should r/o meningitis. CT head showed diffuse cerebral edema ?artifact. But too unstable for LP at this time. 6) Multiorgan dysfunction syndrome 7) Acute renal failure: renally dosing all abx, now on HD 8) Elevated LFTs/shock liver: also likely elevated from Rhabdomyolysis. Viral hepatitis panel negative. 9) Thrombocytopenia 10) Rhabdomyolysis 11) ?Enteritis: per CT ? no collection no perforation no obvious ischemic bowel Recommendations: LP when feasible, currently too unstable continue ceftriaxone 2 gm IV q 12 h continue doxycycline 100 mg IV q 12 h continue vancomycin IV renally adjusted prognosis guarded Will follow along. Katherine Elizabeth MD, FACP [facility] ([facility]) M: [phone] O: [phone] F: [phone] Subjective Date of service: 03/20/19 Principal diagnosis: Septic Shock; Ac. hypoxemic resp failure; Renzo. PNA; Rhabdomyolysis; RUBEN Interval history: Remains critically ill, on multiple pressors. Intubated, on the vent. Objective - Exam Narrative Exam: Physical Exam: Constitutional: sedated, intubated Head, Ears, Nose: Normocephalic, atraumatic. External ears, nose normal Eyes: Conjunctivae/corneas clear. No icterus. No ptosis. Neck: Supple, no meningeal signs Oral: intubated Cardiovascular: S1, S2 normal. Respiratory: Good air entry, clear to auscultation bilaterally GI: Soft, non-tender; bowel sounds normal. No peritoneal signs Musculoskeletal: No pedal edema, no cyanosis. Skin: No rash or abscess Hem/Lymphatic: No palpable cervical or supraclavicular nodes. No lymphangitis Psych: no agitation Neurological: sedated, intubated, on vent - Constitutional Vitals: Vital Signs Temp Pulse Resp BP Pulse Ox 98.8 F 74 15 125/82 97 03/20/19 12:00 03/20/19 11:01 03/20/19 11:01 03/20/19 11:01 03/20/19 11:01 Temperature -Last 24 Hours Temperature 98.8 F Temperature 98.2 F Temperature 98.2 F Temperature 99.6 F Temperature 99.1 F Temperature 98.3 F Temperature 98.6 F Temperature 97.6 F - Labs CBC & Chem 7: 03/20/19 09:30 03/20/19 09:30 Labs: Abnormal lab results 03/16/19 03/19/19 03/19/19 Range/Units 15:32 17:58 19:48 WBC (4.5-11.0) K/mm3 RDW (13.2-15.2) % Plt Count (140-440) K/mm3 POC ABG pH 7.250 L 7.279 L (7.35-7.45) POC ABG pCO2 52.6 H 50.3 H (35-45) POC ABG pO2 129 H (80-105) Sodium (137-145) mmol/L Chloride (98-107) mmol/L Carbon Dioxide (22-30) mmol/L BUN (9-20) mg/dL Creatinine (0.8-1.5) mg/dL Glucose (75-100) mg/dL POC Glucose 118 H (70-105) Calcium (8.4-10.2) mg/dL Total Bilirubin (0.1-1.2) mg/dL AST (5-40) units/L ALT (7-56) units/L Alkaline Phosphatase (35-129) units/L Total Protein (6.3-8.2) g/dL Albumin (3.9-5) g/dL 03/19/19 03/20/19 03/20/19 Range/Units 21:03 02:16 04:23 WBC (4.5-11.0) K/mm3 RDW (13.2-15.2) % Plt Count (140-440) K/mm3 POC ABG pH (7.35-7.45) POC ABG pCO2 (35-45) POC ABG pO2 280 H (80-105) Sodium (137-145) mmol/L Chloride (98-107) mmol/L Carbon Dioxide (22-30) mmol/L BUN (9-20) mg/dL Creatinine (0.8-1.5) mg/dL Glucose (75-100) mg/dL POC Glucose 119 H 119 H (70-105) Calcium (8.4-10.2) mg/dL Total Bilirubin (0.1-1.2) mg/dL AST (5-40) units/L ALT (7-56) units/L Alkaline Phosphatase (35-129) units/L Total Protein (6.3-8.2) g/dL Albumin (3.9-5) g/dL 03/20/19 03/20/19 03/20/19 Range/Units 05:05 09:30 09:30 WBC 36.3 H (4.5-11.0) K/mm3 RDW 15.5 H (13.2-15.2) % Plt Count 29 L (140-440) K/mm3 POC ABG pH (7.35-7.45) POC ABG pCO2 (35-45) POC ABG pO2 (80-105) Sodium 131 L (137-145) mmol/L Chloride 92.3 L (98-107) mmol/L Carbon Dioxide 20 L (22-30) mmol/L BUN 68 H (9-20) mg/dL Creatinine 6.1 H (0.8-1.5) mg/dL Glucose 164 H (75-100) mg/dL POC Glucose 115 H (70-105) Calcium 5.3 L* (8.4-10.2) mg/dL Total Bilirubin 9.50 H (0.1-1.2) mg/dL AST 381 H (5-40) units/L ALT 116 H (7-56) units/L Alkaline Phosphatase 255 H (35-129) units/L Total Protein 5.1 L (6.3-8.2) g/dL Albumin 2.3 L (3.9-5) g/dL 03/20/19 Range/Units 11:34 WBC (4.5-11.0) K/mm3 RDW (13.2-15.2) % Plt Count (140-440) K/mm3 POC ABG pH (7.35-7.45) POC ABG pCO2 (35-45) POC ABG pO2 (80-105) Sodium (137-145) mmol/L Chloride (98-107) mmol/L Carbon Dioxide (22-30) mmol/L BUN (9-20) mg/dL Creatinine (0.8-1.5) mg/dL Glucose (75-100) mg/dL POC Glucose 141 H (70-105) Calcium (8.4-10.2) mg/dL Total Bilirubin (0.1-1.2) mg/dL AST (5-40) units/L ALT (7-56) units/L Alkaline Phosphatase (35-129) units/L Total Protein (6.3-8.2) g/dL Albumin (3.9-5) g/dL - Imaging and cardiology Chest x-ray: report reviewed, image reviewed (slight interval improvement in bilateral pulm opacities)
--- NOTE | 2019-03-20 13:21 | Progress Note ---
Assessment and Plan 43 yo M with 1. septic shock 2. RUBEN 3. rhabdomyolysis 4. AMS 5. multiorgan failure 6. electrolyte abnormalities 7. right axillary cellulitis Plan: 1. neuro - sedation as needed. Neuro on board. 2. CV - wean pressors as tolerated - currently on levophed, vasopressin, abigail, DVT ppx. CBC daily - monitor thrombocytopenia. 3. Resp - vent management per ICU, wean PEEP as tolerated 4. GI - GI ppx. NPO. IVF stopped due to anuria. OGT to LIWS 5. - garcia. 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 HD per nephro 6. ID - ID on board, continue abx. LP pending improvement in plts and stability. R axillary u/s - edema, no abscess. UA + 7. Endo - blood glucose monitoring 8. Tox - UDS negative. 9. FEN - replace lytes aggressively. NPO, BMP daily Pt critically ill, now on pressors. He continues to have a benign abdominal exam, without evidence of peritonitis and no definitive indication for surgical intervention. Furthermore, in his current state, the patient would not survive an abdominal exploration. Recommend continuing supportive care as above. Will follow peripherally. Thank you, please call with questions. Subjective Date of service: 03/20/19 Narrative: Pt seen and examined. Off sedation. No overnight events noted. Pressor requirements decreasing Objective Vital Signs - 12hr 03/20/19 03/20/19 03/20/19 01:30 01:45 02:01 Temperature Pulse Rate 81 83 83 Pulse Rate [ Anterior Bilateral Throughout] Pulse Rate [ From Monitor] Respiratory 15 15 15 Rate Respiratory Rate [Anterior Bilateral Throughout] Blood Pressure 105/65 110/69 105/67 O2 Sat by Pulse 100 100 100 Oximetry 03/20/19 03/20/19 03/20/19 02:15 02:31 02:45 Temperature Pulse Rate 82 84 82 Pulse Rate [ Anterior Bilateral Throughout] Pulse Rate [ From Monitor] Respiratory 15 15 Rate Respiratory Rate [Anterior Bilateral Throughout] Blood Pressure 107/68 107/68 129/77 O2 Sat by Pulse 99 100 100 Oximetry 03/20/19 03/20/19 03/20/19 03:00 03:07 03:15 Temperature 99.6 F Pulse Rate 81 83 Pulse Rate [ Anterior Bilateral Throughout] Pulse Rate [ From Monitor] Respiratory 16 15 Rate Respiratory Rate [Anterior Bilateral Throughout] Blood Pressure 129/77 134/81 O2 Sat by Pulse 100 100 Oximetry 03/20/19 03/20/19 03/20/19 03:30 03:45 04:00 Temperature Pulse Rate 82 82 82 Pulse Rate [ Anterior Bilateral Throughout] Pulse Rate [ 75 From Monitor] Respiratory 15 15 15 Rate Respiratory Rate [Anterior Bilateral Throughout] Blood Pressure 138/84 140/87 147/91 O2 Sat by Pulse 100 100 99 Oximetry 03/20/19 03/20/19 03/20/19 04:15 04:30 04:45 Temperature Pulse Rate 82 82 83 Pulse Rate [ 80 Anterior Bilateral Throughout] Pulse Rate [ From Monitor] Respiratory 14 15 15 Rate Respiratory 17 Rate [Anterior Bilateral Throughout] Blood Pressure 147/91 148/100 165/93 O2 Sat by Pulse 100 100 100 Oximetry 03/20/19 03/20/19 03/20/19 05:00 05:15 05:30 Temperature Pulse Rate 83 81 81 Pulse Rate [ Anterior Bilateral Throughout] Pulse Rate [ From Monitor] Respiratory 15 15 15 Rate Respiratory Rate [Anterior Bilateral Throughout] Blood Pressure 164/99 164/99 164/112 O2 Sat by Pulse 98 96 95 Oximetry 03/20/19 03/20/19 03/20/19 05:45 06:01 06:15 Temperature Pulse Rate 75 74 75 Pulse Rate [ Anterior Bilateral Throughout] Pulse Rate [ From Monitor] Respiratory 15 15 15 Rate Respiratory Rate [Anterior Bilateral Throughout] Blood Pressure 161/99 133/75 102/64 O2 Sat by Pulse 98 98 98 Oximetry 03/20/19 03/20/19 03/20/19 06:30 06:45 07:00 Temperature Pulse Rate 74 73 73 Pulse Rate [ Anterior Bilateral Throughout] Pulse Rate [ From Monitor] Respiratory 15 15 14 Rate Respiratory Rate [Anterior Bilateral Throughout] Blood Pressure 107/68 110/73 115/77 O2 Sat by Pulse 97 99 96 Oximetry 03/20/19 03/20/19 03/20/19 07:15 07:30 07:45 Temperature Pulse Rate 73 71 72 Pulse Rate [ Anterior Bilateral Throughout] Pulse Rate [ From Monitor] Respiratory 15 15 15 Rate Respiratory Rate [Anterior Bilateral Throughout] Blood Pressure 115/77 117/75 124/85 O2 Sat by Pulse 96 96 97 Oximetry 03/20/19 03/20/19 03/20/19 07:48 08:00 08:15 Temperature 98.2 F Pulse Rate 72 72 72 Pulse Rate [ 71 Anterior Bilateral Throughout] Pulse Rate [ 72 From Monitor] Respiratory 15 15 15 Rate Respiratory 15 Rate [Anterior Bilateral Throughout] Blood Pressure 111/77 128/86 133/89 O2 Sat by Pulse 97 98 99 Oximetry 03/20/19 03/20/19 03/20/19 08:30 08:45 09:00 Temperature Pulse Rate 72 72 72 Pulse Rate [ Anterior Bilateral Throughout] Pulse Rate [ From Monitor] Respiratory 15 15 15 Rate Respiratory Rate [Anterior Bilateral Throughout] Blood Pressure 137/90 146/85 129/84 O2 Sat by Pulse 98 98 97 Oximetry 03/20/19 03/20/19 03/20/19 09:15 09:31 09:45 Temperature Pulse Rate 72 72 73 Pulse Rate [ Anterior Bilateral Throughout] Pulse Rate [ From Monitor] Respiratory 15 15 14 Rate Respiratory Rate [Anterior Bilateral Throughout] Blood Pressure 129/84 127/84 127/84 O2 Sat by Pulse 96 97 97 Oximetry 03/20/19 03/20/19 03/20/19 10:00 10:15 10:30 Temperature Pulse Rate 73 75 72 Pulse Rate [ Anterior Bilateral Throughout] Pulse Rate [ From Monitor] Respiratory 15 14 15 Rate Respiratory Rate [Anterior Bilateral Throughout] Blood Pressure 120/77 120/77 125/82 O2 Sat by Pulse 96 97 97 Oximetry 03/20/19 03/20/19 03/20/19 10:45 11:01 11:15 Temperature Pulse Rate 75 74 76 Pulse Rate [ Anterior Bilateral Throughout] Pulse Rate [ From Monitor] Respiratory 15 15 15 Rate Respiratory Rate [Anterior Bilateral Throughout] Blood Pressure 125/82 125/82 125/82 O2 Sat by Pulse 97 97 95 Oximetry 03/20/19 03/20/19 03/20/19 11:30 11:45 12:00 Temperature 98.8 F Pulse Rate 76 75 75 Pulse Rate [ Anterior Bilateral Throughout] Pulse Rate [ 75 From Monitor] Respiratory 15 16 15 Rate Respiratory Rate [Anterior Bilateral Throughout] Blood Pressure 137/76 137/76 O2 Sat by Pulse 98 97 100 Oximetry 03/20/19 03/20/19 03/20/19 12:01 12:15 12:30 Temperature Pulse Rate 77 75 76 Pulse Rate [ Anterior Bilateral Throughout] Pulse Rate [ From Monitor] Respiratory 14 15 15 Rate Respiratory Rate [Anterior Bilateral Throughout] Blood Pressure 137/76 137/76 139/88 O2 Sat by Pulse 98 97 97 Oximetry 03/20/19 03/20/19 03/20/19 12:38 12:41 12:45 Temperature Pulse Rate 79 80 Pulse Rate [ 80 Anterior Bilateral Throughout] Pulse Rate [ From Monitor] Respiratory 26 H 21 Rate Respiratory 27 H Rate [Anterior Bilateral Throughout] Blood Pressure 139/88 139/88 O2 Sat by Pulse 98 99 Oximetry 03/20/19 13:01 Temperature Pulse Rate 83 Pulse Rate [ Anterior Bilateral Throughout] Pulse Rate [ From Monitor] Respiratory 16 Rate Respiratory Rate [Anterior Bilateral Throughout] Blood Pressure 115/72 O2 Sat by Pulse 97 Oximetry - General physical appearance Narrative Exam: General: On vent, responds with facial grimacing to painful stimuli HEENT: ET tube and OG tube in place CV: S1, S2 present Respiratory: On vent, APRV mode Abdomen: Soft, nontender, nondistended Extremities: Generalized anasarca. R axillary cellulitis unchanged, no fluctuance or obvious drainage collection. +induration. B/L Feet are cool and toes with developing ischemia along with plantar aspects of feet : Garcia catheter - Labs 03/20/19 09:30 03/20/19 09:30 Diabetes panel 03/20/19 Range/Units 09:30 Sodium 131 L (137-145) mmol/L Potassium 4.8 (3.6-5.0) mmol/L Chloride 92.3 L (98-107) mmol/L Carbon Dioxide 20 L (22-30) mmol/L BUN 68 H (9-20) mg/dL Creatinine 6.1 H (0.8-1.5) mg/dL Glucose 164 H (75-100) mg/dL Calcium 5.3 L* (8.4-10.2) mg/dL AST 381 H (5-40) units/L ALT 116 H (7-56) units/L Alkaline Phosphatase 255 H (35-129) units/L Total Protein 5.1 L (6.3-8.2) g/dL Albumin 2.3 L (3.9-5) g/dL Calcium panel 03/20/19 Range/Units 09:30 Calcium 5.3 L* (8.4-10.2) mg/dL Albumin 2.3 L (3.9-5) g/dL Pituitary panel 03/20/19 Range/Units 09:30 Sodium 131 L (137-145) mmol/L Potassium 4.8 (3.6-5.0) mmol/L Chloride 92.3 L (98-107) mmol/L Carbon Dioxide 20 L (22-30) mmol/L BUN 68 H (9-20) mg/dL Creatinine 6.1 H (0.8-1.5) mg/dL Glucose 164 H (75-100) mg/dL Calcium 5.3 L* (8.4-10.2) mg/dL Adrenal panel 03/20/19 Range/Units 09:30 Sodium 131 L (137-145) mmol/L Potassium 4.8 (3.6-5.0) mmol/L Chloride 92.3 L (98-107) mmol/L Carbon Dioxide 20 L (22-30) mmol/L BUN 68 H (9-20) mg/dL Creatinine 6.1 H (0.8-1.5) mg/dL Glucose 164 H (75-100) mg/dL Calcium 5.3 L* (8.4-10.2) mg/dL Total Bilirubin 9.50 H (0.1-1.2) mg/dL AST 381 H (5-40) units/L ALT 116 H (7-56) units/L Alkaline Phosphatase 255 H (35-129) units/L Total Protein 5.1 L (6.3-8.2) g/dL Albumin 2.3 L (3.9-5) g/dL
--- NOTE | 2019-03-20 14:16 | Progress Note ---
Assessment and Plan Severe sepsis with shock. Right axilla abscess versus localized pannus/fatty collection. Acute hypoxemic respiratory failure, on mechanical ventilator support. Likely aspiration pneumonia, bilateral. Morbid obesity. Rhabdomyolysis. Acute kidney injury. Leukocytosis. Morbid obesity. Metabolic acidosis. Lactic acidosis. Hypomagnesemia. Elevated serum transaminases/possible shock liver. Acute encephalopathy, toxic metabolic versus anoxic - advance ETT to 24 cm PEDRO - weaned off dopamine and neosynephrine now - discontinue Femoral CVL and use triialysis catheter for pressors - repeat CRP level re: leucocytosis (suspect steroids) - begin trickle feedig at 10 ml's/hr - continue APRV mode while keeping close eye on ventilation (Ph 40, Plow 5, Th 4.0s, Tlow 0.8s) - repeat ABG at 9 pm tonight - continue HD/UF per nephrology prescription - continue D5W at 50 mls/hr re: hypoglycemia - continue to wean vasopressors for target MAP > 65 mmHg (remains on levophed, vasopressin) - VAP bundle addressed - continue to wean FiO2 for sats > 90% - continue daily SAT's and SBT assessment as tolerated - target sedation for RASS 0 to -1 - prn analgesia per CPOT score - continue HD/UF per nephrology prescription and for toxin and volume control - prn supportive blood transfusions to keep serum Hb > 7.0 - Monitor hemodynamics closely - Transfuse PRBC's to keep HgB > 7g/dL - continue enteral nutrition as tolerated (NPO for now; trickle feeding and advance once more stable) - continue empiric broad spectrum antiinfective's per ID recommendations (de- escalate based on clinical and microbiologic data) - continue mobility protocols and off loading as tolerated for pressure ulcer prophylaxis - continue to avoid nephrotoxins, adjust all medications for GFR and CRCL - continue GI & VTE prophylaxis with - accuchecks with glycemic control per SSI for target BG of 140-180 mg/dl acutely - continue other care per attending / other consultants ... attempted to reach his brother on the phone unsuccessfully to update him ... re-evaluate in am & prn CONDITION: CRITICAL PROGNOSIS: VERY GUARDED CODE STATUS: FULL CODE Discussed extensively with RT/RN and care team in ICU IDT rounds The high probability of a clinically significant, sudden or life threatening deterioration of the [respiratory, renal and Cardiac] system's' required my full and direct attention, intervention and personal management. The aggregate critical care time was 35 minutes. This time is in addition to time spent performing reported procedures but includes the following: [x] Data Review and interpretation [x] Patient assessment and monitoring of vital signs [x] Documentation [x] Medication orders and management Subjective Date of service: 03/20/19 Principal diagnosis: Septic Shock; Ac. hypoxemic resp failure; Renzo. PNA; Rhabdomyolysis; RUBEN Interval history: Patient is seen today for: Severe sepsis with shock; Acute hypoxemic respiratory failure; Aspiration pneumonia; Morbid obesity; Rhabdomyolysis; Acute kidney injury; Morbid obesity; Elevated serum transaminases/possible shock liver; Acute encephalopathy (Toxic/Met) Seen and examined at bedside; 24hour events reviewed; nursing and respiratory care staff consulted; no adverse overnight events reported to me; resting peacefully in bed; moving all extremities but not following higher commands; FiO2 down to 50%; no gross bleeding; weaning slowly off vasopressors Objective Vital Signs - 12hr 03/20/19 03/20/19 03/20/19 02:15 02:31 02:45 Temperature Pulse Rate 82 84 82 Pulse Rate [ Anterior Bilateral Throughout] Pulse Rate [ From Monitor] Respiratory 15 15 Rate Respiratory Rate [Anterior Bilateral Throughout] Blood Pressure 107/68 107/68 129/77 O2 Sat by Pulse 99 100 100 Oximetry 03/20/19 03/20/19 03/20/19 03:00 03:07 03:15 Temperature 99.6 F Pulse Rate 81 83 Pulse Rate [ Anterior Bilateral Throughout] Pulse Rate [ From Monitor] Respiratory 16 15 Rate Respiratory Rate [Anterior Bilateral Throughout] Blood Pressure 129/77 134/81 O2 Sat by Pulse 100 100 Oximetry 03/20/19 03/20/19 03/20/19 03:30 03:45 04:00 Temperature Pulse Rate 82 82 82 Pulse Rate [ Anterior Bilateral Throughout] Pulse Rate [ 75 From Monitor] Respiratory 15 15 15 Rate Respiratory Rate [Anterior Bilateral Throughout] Blood Pressure 138/84 140/87 147/91 O2 Sat by Pulse 100 100 99 Oximetry 03/20/19 03/20/19 03/20/19 04:15 04:30 04:45 Temperature Pulse Rate 82 82 83 Pulse Rate [ 80 Anterior Bilateral Throughout] Pulse Rate [ From Monitor] Respiratory 14 15 15 Rate Respiratory 17 Rate [Anterior Bilateral Throughout] Blood Pressure 147/91 148/100 165/93 O2 Sat by Pulse 100 100 100 Oximetry 03/20/19 03/20/19 03/20/19 05:00 05:15 05:30 Temperature Pulse Rate 83 81 81 Pulse Rate [ Anterior Bilateral Throughout] Pulse Rate [ From Monitor] Respiratory 15 15 15 Rate Respiratory Rate [Anterior Bilateral Throughout] Blood Pressure 164/99 164/99 164/112 O2 Sat by Pulse 98 96 95 Oximetry 03/20/19 03/20/19 03/20/19 05:45 06:01 06:15 Temperature Pulse Rate 75 74 75 Pulse Rate [ Anterior Bilateral Throughout] Pulse Rate [ From Monitor] Respiratory 15 15 15 Rate Respiratory Rate [Anterior Bilateral Throughout] Blood Pressure 161/99 133/75 102/64 O2 Sat by Pulse 98 98 98 Oximetry 03/20/19 03/20/19 03/20/19 06:30 06:45 07:00 Temperature Pulse Rate 74 73 73 Pulse Rate [ Anterior Bilateral Throughout] Pulse Rate [ From Monitor] Respiratory 15 15 14 Rate Respiratory Rate [Anterior Bilateral Throughout] Blood Pressure 107/68 110/73 115/77 O2 Sat by Pulse 97 99 96 Oximetry 03/20/19 03/20/19 03/20/19 07:15 07:30 07:45 Temperature Pulse Rate 73 71 72 Pulse Rate [ Anterior Bilateral Throughout] Pulse Rate [ From Monitor] Respiratory 15 15 15 Rate Respiratory Rate [Anterior Bilateral Throughout] Blood Pressure 115/77 117/75 124/85 O2 Sat by Pulse 96 96 97 Oximetry 03/20/19 03/20/19 03/20/19 07:48 08:00 08:15 Temperature 98.2 F Pulse Rate 72 72 72 Pulse Rate [ 71 Anterior Bilateral Throughout] Pulse Rate [ 72 From Monitor] Respiratory 15 15 15 Rate Respiratory 15 Rate [Anterior Bilateral Throughout] Blood Pressure 111/77 128/86 133/89 O2 Sat by Pulse 97 98 99 Oximetry 03/20/19 03/20/19 03/20/19 08:30 08:45 09:00 Temperature Pulse Rate 72 72 72 Pulse Rate [ Anterior Bilateral Throughout] Pulse Rate [ From Monitor] Respiratory 15 15 15 Rate Respiratory Rate [Anterior Bilateral Throughout] Blood Pressure 137/90 146/85 129/84 O2 Sat by Pulse 98 98 97 Oximetry 03/20/19 03/20/19 03/20/19 09:15 09:31 09:45 Temperature Pulse Rate 72 72 73 Pulse Rate [ Anterior Bilateral Throughout] Pulse Rate [ From Monitor] Respiratory 15 15 14 Rate Respiratory Rate [Anterior Bilateral Throughout] Blood Pressure 129/84 127/84 127/84 O2 Sat by Pulse 96 97 97 Oximetry 03/20/19 03/20/19 03/20/19 10:00 10:15 10:30 Temperature Pulse Rate 73 75 72 Pulse Rate [ Anterior Bilateral Throughout] Pulse Rate [ From Monitor] Respiratory 15 14 15 Rate Respiratory Rate [Anterior Bilateral Throughout] Blood Pressure 120/77 120/77 125/82 O2 Sat by Pulse 96 97 97 Oximetry 03/20/19 03/20/19 03/20/19 10:45 11:01 11:15 Temperature Pulse Rate 75 74 76 Pulse Rate [ Anterior Bilateral Throughout] Pulse Rate [ From Monitor] Respiratory 15 15 15 Rate Respiratory Rate [Anterior Bilateral Throughout] Blood Pressure 125/82 125/82 125/82 O2 Sat by Pulse 97 97 95 Oximetry 03/20/19 03/20/19 03/20/19 11:30 11:45 12:00 Temperature 98.8 F Pulse Rate 76 75 75 Pulse Rate [ Anterior Bilateral Throughout] Pulse Rate [ 75 From Monitor] Respiratory 15 16 15 Rate Respiratory Rate [Anterior Bilateral Throughout] Blood Pressure 137/76 137/76 O2 Sat by Pulse 98 97 100 Oximetry 03/20/19 03/20/19 03/20/19 12:01 12:15 12:30 Temperature Pulse Rate 77 75 76 Pulse Rate [ Anterior Bilateral Throughout] Pulse Rate [ From Monitor] Respiratory 14 15 15 Rate Respiratory Rate [Anterior Bilateral Throughout] Blood Pressure 137/76 137/76 139/88 O2 Sat by Pulse 98 97 97 Oximetry 03/20/19 03/20/19 03/20/19 12:38 12:41 12:45 Temperature Pulse Rate 79 80 Pulse Rate [ 80 Anterior Bilateral Throughout] Pulse Rate [ From Monitor] Respiratory 26 H 21 Rate Respiratory 27 H Rate [Anterior Bilateral Throughout] Blood Pressure 139/88 139/88 O2 Sat by Pulse 98 99 Oximetry 03/20/19 13:01 Temperature Pulse Rate 83 Pulse Rate [ Anterior Bilateral Throughout] Pulse Rate [ From Monitor] Respiratory 16 Rate Respiratory Rate [Anterior Bilateral Throughout] Blood Pressure 115/72 O2 Sat by Pulse 97 Oximetry Constitutional: other (middle aged morbidly obese CM, normocephalic with incresed respiratory effort on MVS) Eyes: icteric ENT: oropharynx moist, other (ETT 23-24 cm PEDRO) Neck: supple, no lymphadenopathy, no JVD, other (large neck circumference) Effort: mildly labored Ascultation: Bilateral: diminished breath sounds, rales Percussion: Bilateral: not dull Cardiovascular: regular rate and rhythm Gastrointestinal: hypoactive bowel sounds, soft, non-tender, non-distended Integumentary: normal Extremities: no cyanosis, pink and warm, pulses normal, no ischemia or petechiae, edema Neurologic: non-focal exam (grossly), pupils equal and round, CN II-XII normal, motor strength normal and Psychiatric: other (inable to assess) CBC and BMP: 03/21/19 04:26 03/21/19 04:26 ABG, PT/INR, D-dimer: ABG POC ABG pH 7.352 (7.35-7.45) 03/20/19 04:23 ABG pH 7.265 pH Units (7.350-7.450) L 03/19/19 05:35 POC ABG pCO2 42.2 (35-45) 03/20/19 04:23 ABG pCO2 45.5 mm Hg 03/19/19 05:35 POC ABG pO2 280 (80-105) H 03/20/19 04:23 ABG pO2 35.4 mm Hg (80.0-90.0) L* 03/19/19 05:35 POC ABG HCO3 23.4 (22-26 mml/L) 03/20/19 04:23 POC ABG Total CO2 25 (23-27mmol/L) 03/20/19 04:23 POC ABG O2 Sat 100 03/20/19 04:23 ABG O2 Saturation 54.4 % (95.0-99.0) L 03/19/19 05:35 PT/INR, D-dimer PT 15.9 Sec. (12.2-14.9) H 03/16/19 17:05 INR 1.30 (0.87-1.13) H 03/16/19 17:05 Abnormal lab findings: Abnormal Labs 03/16/19 03/16/19 03/16/19 15:32 16:03 16:05 WBC 27.0 H RBC 5.55 H Hgb 15.7 H Hct 47.1 H RDW Plt Count 75 L Seg Neuts % (Manual) 85.0 H Lymphocytes % (Manual) 2.0 L Monocytes % (Manual) Seg Neutrophils # Man 23.0 H Lymphocytes # (Manual) 0.5 L Monocytes # (Manual) PT INR POC ABG pH ABG pH POC ABG pCO2 POC ABG pO2 ABG pO2 ABG O2 Saturation ABG Base Excess ABG Hemoglobin Oxyhemoglobin Sodium 127 L Potassium Chloride 87.8 L Carbon Dioxide 17 L BUN 49 H Creatinine 5.8 H Glucose 150 H POC Glucose 118 H Lactic Acid Calcium 6.6 L Phosphorus Magnesium 1.10 L Total Bilirubin Direct Bilirubin AST ALT Alkaline Phosphatase Total Creatine Kinase 79478 H CK-MB (CK-2) Troponin T C-Reactive Protein Total Protein Albumin Triglycerides LDL Cholesterol Direct HDL Cholesterol Free T4 Urine WBC (Auto) Urine Creatinine Salicylates Acetaminophen 03/16/19 03/16/19 03/16/19 16:59 17:05 17:05 WBC RBC Hgb Hct RDW Plt Count Seg Neuts % (Manual) Lymphocytes % (Manual) Monocytes % (Manual) Seg Neutrophils # Man Lymphocytes # (Manual) Monocytes # (Manual) PT INR POC ABG pH 7.297 L ABG pH POC ABG pCO2 33.0 L POC ABG pO2 ABG pO2 ABG O2 Saturation ABG Base Excess ABG Hemoglobin Oxyhemoglobin Sodium Potassium Chloride Carbon Dioxide BUN Creatinine Glucose POC Glucose Lactic Acid Calcium Phosphorus Magnesium Total Bilirubin Direct Bilirubin AST ALT Alkaline Phosphatase Total Creatine Kinase 55598 H CK-MB (CK-2) 83.1 H Troponin T C-Reactive Protein Total Protein Albumin Triglycerides LDL Cholesterol Direct HDL Cholesterol Free T4 0.72 L Urine WBC (Auto) Urine Creatinine Salicylates Acetaminophen 03/16/19 03/16/19 03/16/19 17:05 17:05 17:05 WBC RBC Hgb Hct RDW Plt Count Seg Neuts % (Manual) Lymphocytes % (Manual) Monocytes % (Manual) Seg Neutrophils # Man Lymphocytes # (Manual) Monocytes # (Manual) PT INR POC ABG pH ABG pH POC ABG pCO2 POC ABG pO2 ABG pO2 ABG O2 Saturation ABG Base Excess ABG Hemoglobin Oxyhemoglobin Sodium Potassium Chloride Carbon Dioxide BUN Creatinine Glucose POC Glucose Lactic Acid 5.10 H* Calcium Phosphorus Magnesium Total Bilirubin Direct Bilirubin AST ALT Alkaline Phosphatase Total Creatine Kinase CK-MB (CK-2) Troponin T C-Reactive Protein Total Protein Albumin Triglycerides LDL Cholesterol Direct HDL Cholesterol Free T4 Urine WBC (Auto) Urine Creatinine Salicylates < 0.3 L Acetaminophen < 5.0 L 03/16/19 03/16/19 03/16/19 17:05 17:05 20:35 WBC RBC Hgb Hct RDW Plt Count Seg Neuts % (Manual) Lymphocytes % (Manual) Monocytes % (Manual) Seg Neutrophils # Man Lymphocytes # (Manual) Monocytes # (Manual) PT 15.9 H INR 1.30 H POC ABG pH ABG pH POC ABG pCO2 POC ABG pO2 ABG pO2 ABG O2 Saturation ABG Base Excess ABG Hemoglobin Oxyhemoglobin Sodium Potassium Chloride Carbon Dioxide BUN Creatinine Glucose POC Glucose Lactic Acid 3.30 H* Calcium Phosphorus Magnesium Total Bilirubin 6.20 H Direct Bilirubin 5.9 H AST 800 H ALT 120 H Alkaline Phosphatase Total Creatine Kinase CK-MB (CK-2) Troponin T C-Reactive Protein Total Protein 4.4 L Albumin 2.4 L Triglycerides LDL Cholesterol Direct HDL Cholesterol Free T4 Urine WBC (Auto) Urine Creatinine Salicylates Acetaminophen 03/16/19 03/16/19 03/16/19 21:45 22:32 Unknown WBC RBC Hgb Hct RDW Plt Count Seg Neuts % (Manual) Lymphocytes % (Manual) Monocytes % (Manual) Seg Neutrophils # Man Lymphocytes # (Manual) Monocytes # (Manual) PT INR POC ABG pH ABG pH POC ABG pCO2 POC ABG pO2 ABG pO2 ABG O2 Saturation ABG Base Excess ABG Hemoglobin Oxyhemoglobin Sodium Potassium Chloride Carbon Dioxide BUN Creatinine Glucose POC Glucose Lactic Acid 3.30 H* 3.00 H* Calcium Phosphorus Magnesium Total Bilirubin Direct Bilirubin AST ALT Alkaline Phosphatase Total Creatine Kinase CK-MB (CK-2) Troponin T 0.047 H D C-Reactive Protein Total Protein Albumin Triglycerides 395 H LDL Cholesterol Direct 10 L HDL Cholesterol 7 L Free T4 Urine WBC (Auto) Urine Creatinine Salicylates Acetaminophen 03/17/19 03/17/19 03/17/19 03:45 03:45 03:45 WBC RBC Hgb Hct RDW Plt Count Seg Neuts % (Manual) Lymphocytes % (Manual) Monocytes % (Manual) Seg Neutrophils # Man Lymphocytes # (Manual) Monocytes # (Manual) PT INR POC ABG pH ABG pH POC ABG pCO2 POC ABG pO2 ABG pO2 ABG O2 Saturation ABG Base Excess ABG Hemoglobin Oxyhemoglobin Sodium 131 L Potassium Chloride 88.9 L Carbon Dioxide BUN 53 H Creatinine 7.1 H Glucose POC Glucose Lactic Acid 4.10 H* Calcium 5.4 L* D Phosphorus 7.30 H Magnesium 1.60 L Total Bilirubin 5.90 H Direct Bilirubin AST 801 H ALT 109 H Alkaline Phosphatase Total Creatine Kinase 83043 H 99094 H CK-MB (CK-2) 41.5 H Troponin T 0.054 H C-Reactive Protein Total Protein 4.5 L Albumin 2.0 L Triglycerides LDL Cholesterol Direct HDL Cholesterol Free T4 Urine WBC (Auto) Urine Creatinine Salicylates Acetaminophen 03/17/19 03/17/19 03/17/19 05:47 07:16 07:16 WBC RBC Hgb Hct RDW Plt Count Seg Neuts % (Manual) Lymphocytes % (Manual) Monocytes % (Manual) Seg Neutrophils # Man Lymphocytes # (Manual) Monocytes # (Manual) PT INR POC ABG pH 7.193 L ABG pH POC ABG pCO2 45.2 H POC ABG pO2 65 L ABG pO2 ABG O2 Saturation ABG Base Excess ABG Hemoglobin Oxyhemoglobin Sodium Potassium Chloride Carbon Dioxide BUN Creatinine Glucose POC Glucose Lactic Acid 5.50 H* Calcium Phosphorus Magnesium Total Bilirubin Direct Bilirubin AST ALT Alkaline Phosphatase Total Creatine Kinase 75995 H CK-MB (CK-2) 54.3 H Troponin T 0.058 H C-Reactive Protein Total Protein Albumin Triglycerides LDL Cholesterol Direct HDL Cholesterol Free T4 Urine WBC (Auto) Urine Creatinine Salicylates Acetaminophen 03/17/19 03/17/19 03/17/19 11:52 12:51 13:01 WBC RBC Hgb Hct RDW Plt Count Seg Neuts % (Manual) Lymphocytes % (Manual) Monocytes % (Manual) Seg Neutrophils # Man Lymphocytes # (Manual) Monocytes # (Manual) PT INR POC ABG pH 7.154 L ABG pH POC ABG pCO2 34.3 L POC ABG pO2 73 L ABG pO2 ABG O2 Saturation ABG Base Excess ABG Hemoglobin Oxyhemoglobin Sodium Potassium Chloride Carbon Dioxide BUN Creatinine Glucose POC Glucose 60 L Lactic Acid 8.20 H* Calcium Phosphorus Magnesium Total Bilirubin Direct Bilirubin AST ALT Alkaline Phosphatase Total Creatine Kinase CK-MB (CK-2) Troponin T C-Reactive Protein Total Protein Albumin Triglycerides LDL Cholesterol Direct HDL Cholesterol Free T4 Urine WBC (Auto) Urine Creatinine Salicylates Acetaminophen 03/17/19 03/17/19 03/17/19 14:37 14:37 14:37 WBC 29.3 H RBC Hgb Hct RDW 15.8 H Plt Count 45 L Seg Neuts % (Manual) 81.0 H Lymphocytes % (Manual) 1.0 L Monocytes % (Manual) 15.0 H Seg Neutrophils # Man 23.7 H Lymphocytes # (Manual) 0.3 L Monocytes # (Manual) 4.4 H PT INR POC ABG pH ABG pH POC ABG pCO2 POC ABG pO2 ABG pO2 ABG O2 Saturation ABG Base Excess ABG Hemoglobin Oxyhemoglobin Sodium Potassium Chloride Carbon Dioxide BUN Creatinine Glucose POC Glucose Lactic Acid 4.90 H* Calcium Phosphorus Magnesium Total Bilirubin Direct Bilirubin AST ALT Alkaline Phosphatase Total Creatine Kinase CK-MB (CK-2) Troponin T C-Reactive Protein 24.90 H Total Protein Albumin Triglycerides LDL Cholesterol Direct HDL Cholesterol Free T4 Urine WBC (Auto) Urine Creatinine Salicylates Acetaminophen 03/17/19 03/17/19 03/17/19 16:05 16:05 17:02 WBC RBC Hgb Hct RDW Plt Count Seg Neuts % (Manual) Lymphocytes % (Manual) Monocytes % (Manual) Seg Neutrophils # Man Lymphocytes # (Manual) Monocytes # (Manual) PT INR POC ABG pH 7.183 L ABG pH POC ABG pCO2 POC ABG pO2 65 L ABG pO2 ABG O2 Saturation ABG Base Excess ABG Hemoglobin Oxyhemoglobin Sodium Potassium Chloride Carbon Dioxide BUN Creatinine Glucose POC Glucose Lactic Acid Calcium Phosphorus Magnesium Total Bilirubin Direct Bilirubin AST ALT Alkaline Phosphatase Total Creatine Kinase CK-MB (CK-2) Troponin T C-Reactive Protein Total Protein Albumin Triglycerides LDL Cholesterol Direct HDL Cholesterol Free T4 Urine WBC (Auto) 30.0 H Urine Creatinine 106.6 H Salicylates Acetaminophen 03/18/19 03/18/19 03/18/19 05:12 05:16 05:53 WBC RBC Hgb Hct RDW Plt Count Seg Neuts % (Manual) Lymphocytes % (Manual) Monocytes % (Manual) Seg Neutrophils # Man Lymphocytes # (Manual) Monocytes # (Manual) PT INR POC ABG pH 7.257 L ABG pH POC ABG pCO2 31.6 L POC ABG pO2 69 L ABG pO2 ABG O2 Saturation ABG Base Excess ABG Hemoglobin Oxyhemoglobin Sodium Potassium Chloride Carbon Dioxide BUN Creatinine Glucose POC Glucose 141 H Lactic Acid 5.00 H* Calcium Phosphorus Magnesium Total Bilirubin Direct Bilirubin AST ALT Alkaline Phosphatase Total Creatine Kinase CK-MB (CK-2) Troponin T C-Reactive Protein Total Protein Albumin Triglycerides LDL Cholesterol Direct HDL Cholesterol Free T4 Urine WBC (Auto) Urine Creatinine Salicylates Acetaminophen 03/18/19 03/18/19 03/18/19 06:57 08:40 08:40 WBC 31.7 H RBC Hgb Hct RDW 15.5 H Plt Count 35 L Seg Neuts % (Manual) Lymphocytes % (Manual) Monocytes % (Manual) Seg Neutrophils # Man Lymphocytes # (Manual) Monocytes # (Manual) PT INR POC ABG pH ABG pH POC ABG pCO2 POC ABG pO2 ABG pO2 ABG O2 Saturation ABG Base Excess ABG Hemoglobin Oxyhemoglobin Sodium 132 L Potassium 5.5 H D Chloride 88.5 L Carbon Dioxide 18 L BUN 71 H Creatinine 8.1 H Glucose 205 H POC Glucose Lactic Acid 5.00 H* Calcium 4.1 L* D Phosphorus Magnesium 2.40 H Total Bilirubin 7.50 H Direct Bilirubin AST 1088 H ALT 159 H Alkaline Phosphatase 190 H Total Creatine Kinase 344008 H CK-MB (CK-2) Troponin T C-Reactive Protein Total Protein 4.7 L Albumin 1.8 L Triglycerides LDL Cholesterol Direct HDL Cholesterol Free T4 Urine WBC (Auto) Urine Creatinine Salicylates Acetaminophen 03/18/19 03/18/19 03/18/19 12:33 12:50 13:19 WBC RBC Hgb Hct RDW Plt Count Seg Neuts % (Manual) Lymphocytes % (Manual) Monocytes % (Manual) Seg Neutrophils # Man Lymphocytes # (Manual) Monocytes # (Manual) PT INR POC ABG pH 7.282 L ABG pH POC ABG pCO2 POC ABG pO2 67 L ABG pO2 ABG O2 Saturation ABG Base Excess ABG Hemoglobin Oxyhemoglobin Sodium Potassium Chloride Carbon Dioxide BUN Creatinine Glucose POC Glucose 129 H Lactic Acid 3.30 H* Calcium Phosphorus Magnesium Total Bilirubin Direct Bilirubin AST ALT Alkaline Phosphatase Total Creatine Kinase CK-MB (CK-2) Troponin T C-Reactive Protein Total Protein Albumin Triglycerides LDL Cholesterol Direct HDL Cholesterol Free T4 Urine WBC (Auto) Urine Creatinine Salicylates Acetaminophen 03/18/19 03/18/19 03/18/19 13:19 16:50 18:11 WBC RBC Hgb Hct RDW Plt Count Seg Neuts % (Manual) Lymphocytes % (Manual) Monocytes % (Manual) Seg Neutrophils # Man Lymphocytes # (Manual) Monocytes # (Manual) PT INR POC ABG pH ABG pH POC ABG pCO2 POC ABG pO2 59 L ABG pO2 ABG O2 Saturation ABG Base Excess ABG Hemoglobin Oxyhemoglobin Sodium Potassium Chloride Carbon Dioxide BUN Creatinine Glucose POC Glucose 151 H Lactic Acid Calcium 4.2 L* Phosphorus Magnesium Total Bilirubin Direct Bilirubin AST ALT Alkaline Phosphatase Total Creatine Kinase 380219 H CK-MB (CK-2) Troponin T C-Reactive Protein Total Protein Albumin Triglycerides LDL Cholesterol Direct HDL Cholesterol Free T4 Urine WBC (Auto) Urine Creatinine Salicylates Acetaminophen 03/18/19 03/18/19 03/19/19 18:20 23:39 01:42 WBC RBC Hgb Hct RDW Plt Count Seg Neuts % (Manual) Lymphocytes % (Manual) Monocytes % (Manual) Seg Neutrophils # Man Lymphocytes # (Manual) Monocytes # (Manual) PT INR POC ABG pH 7.345 L ABG pH 7.285 L POC ABG pCO2 POC ABG pO2 59 L ABG pO2 44.0 L ABG O2 Saturation 70.9 L ABG Base Excess -5.7 L ABG Hemoglobin 11.9 L Oxyhemoglobin 69.6 L Sodium Potassium Chloride Carbon Dioxide BUN Creatinine Glucose POC Glucose 152 H Lactic Acid Calcium Phosphorus Magnesium Total Bilirubin Direct Bilirubin AST ALT Alkaline Phosphatase Total Creatine Kinase CK-MB (CK-2) Troponin T C-Reactive Protein Total Protein Albumin Triglycerides LDL Cholesterol Direct HDL Cholesterol Free T4 Urine WBC (Auto) Urine Creatinine Salicylates Acetaminophen 03/19/19 03/19/19 03/19/19 04:00 04:00 05:35 WBC 36.5 H RBC Hgb Hct RDW 15.8 H Plt Count 35 L Seg Neuts % (Manual) Lymphocytes % (Manual) Monocytes % (Manual) Seg Neutrophils # Man Lymphocytes # (Manual) Monocytes # (Manual) PT INR POC ABG pH ABG pH 7.265 L POC ABG pCO2 POC ABG pO2 ABG pO2 35.4 L* ABG O2 Saturation 54.4 L ABG Base Excess -6.7 L ABG Hemoglobin 12.9 L Oxyhemoglobin 53.4 L Sodium 132 L Potassium 5.7 H Chloride 89.8 L Carbon Dioxide 19 L BUN 62 H Creatinine 6.4 H Glucose 151 H POC Glucose Lactic Acid Calcium 5.2 L* D Phosphorus Magnesium Total Bilirubin 7.80 H Direct Bilirubin AST 682 H ALT 130 H Alkaline Phosphatase 167 H Total Creatine Kinase CK-MB (CK-2) Troponin T C-Reactive Protein Total Protein 4.8 L Albumin 2.3 L Triglycerides LDL Cholesterol Direct HDL Cholesterol Free T4 Urine WBC (Auto) Urine Creatinine Salicylates Acetaminophen 03/19/19 03/19/19 03/19/19 05:49 09:16 09:50 WBC RBC Hgb Hct RDW Plt Count Seg Neuts % (Manual) Lymphocytes % (Manual) Monocytes % (Manual) Seg Neutrophils # Man Lymphocytes # (Manual) Monocytes # (Manual) PT INR POC ABG pH 7.222 L ABG pH POC ABG pCO2 56.6 H POC ABG pO2 ABG pO2 ABG O2 Saturation ABG Base Excess ABG Hemoglobin Oxyhemoglobin Sodium Potassium Chloride Carbon Dioxide BUN Creatinine Glucose POC Glucose 154 H Lactic Acid 2.70 H* Calcium Phosphorus Magnesium Total Bilirubin Direct Bilirubin AST ALT Alkaline Phosphatase Total Creatine Kinase CK-MB (CK-2) Troponin T C-Reactive Protein Total Protein Albumin Triglycerides LDL Cholesterol Direct HDL Cholesterol Free T4 Urine WBC (Auto) Urine Creatinine Salicylates Acetaminophen 03/19/19 03/19/19 03/19/19 09:50 11:28 17:58 WBC RBC Hgb Hct RDW Plt Count Seg Neuts % (Manual) Lymphocytes % (Manual) Monocytes % (Manual) Seg Neutrophils # Man Lymphocytes # (Manual) Monocytes # (Manual) PT INR POC ABG pH 7.250 L ABG pH POC ABG pCO2 52.6 H POC ABG pO2 ABG pO2 ABG O2 Saturation ABG Base Excess ABG Hemoglobin Oxyhemoglobin Sodium Potassium Chloride Carbon Dioxide BUN Creatinine Glucose POC Glucose 160 H Lactic Acid Calcium Phosphorus Magnesium Total Bilirubin Direct Bilirubin AST ALT Alkaline Phosphatase Total Creatine Kinase 29226 H CK-MB (CK-2) Troponin T C-Reactive Protein Total Protein Albumin Triglycerides LDL Cholesterol Direct HDL Cholesterol Free T4 Urine WBC (Auto) Urine Creatinine Salicylates Acetaminophen 03/19/19 03/19/19 03/20/19 19:48 21:03 02:16 WBC RBC Hgb Hct RDW Plt Count Seg Neuts % (Manual) Lymphocytes % (Manual) Monocytes % (Manual) Seg Neutrophils # Man Lymphocytes # (Manual) Monocytes # (Manual) PT INR POC ABG pH 7.279 L ABG pH POC ABG pCO2 50.3 H POC ABG pO2 129 H ABG pO2 ABG O2 Saturation ABG Base Excess ABG Hemoglobin Oxyhemoglobin Sodium Potassium Chloride Carbon Dioxide BUN Creatinine Glucose POC Glucose 119 H 119 H Lactic Acid Calcium Phosphorus Magnesium Total Bilirubin Direct Bilirubin AST ALT Alkaline Phosphatase Total Creatine Kinase CK-MB (CK-2) Troponin T C-Reactive Protein Total Protein Albumin Triglycerides LDL Cholesterol Direct HDL Cholesterol Free T4 Urine WBC (Auto) Urine Creatinine Salicylates Acetaminophen 03/20/19 03/20/19 03/20/19 04:23 05:05 09:30 WBC 36.3 H RBC Hgb Hct RDW 15.5 H Plt Count 29 L Seg Neuts % (Manual) Lymphocytes % (Manual) Monocytes % (Manual) Seg Neutrophils # Man Lymphocytes # (Manual) Monocytes # (Manual) PT INR POC ABG pH ABG pH POC ABG pCO2 POC ABG pO2 280 H ABG pO2 ABG O2 Saturation ABG Base Excess ABG Hemoglobin Oxyhemoglobin Sodium Potassium Chloride Carbon Dioxide BUN Creatinine Glucose POC Glucose 115 H Lactic Acid Calcium Phosphorus Magnesium Total Bilirubin Direct Bilirubin AST ALT Alkaline Phosphatase Total Creatine Kinase CK-MB (CK-2) Troponin T C-Reactive Protein Total Protein Albumin Triglycerides LDL Cholesterol Direct HDL Cholesterol Free T4 Urine WBC (Auto) Urine Creatinine Salicylates Acetaminophen 03/20/19 03/20/19 09:30 11:34 WBC RBC Hgb Hct RDW Plt Count Seg Neuts % (Manual) Lymphocytes % (Manual) Monocytes % (Manual) Seg Neutrophils # Man Lymphocytes # (Manual) Monocytes # (Manual) PT INR POC ABG pH ABG pH POC ABG pCO2 POC ABG pO2 ABG pO2 ABG O2 Saturation ABG Base Excess ABG Hemoglobin Oxyhemoglobin Sodium 131 L Potassium Chloride 92.3 L Carbon Dioxide 20 L BUN 68 H Creatinine 6.1 H Glucose 164 H POC Glucose 141 H Lactic Acid Calcium 5.3 L* Phosphorus Magnesium Total Bilirubin 9.50 H Direct Bilirubin AST 381 H ALT 116 H Alkaline Phosphatase 255 H Total Creatine Kinase CK-MB (CK-2) Troponin T C-Reactive Protein Total Protein 5.1 L Albumin 2.3 L Triglycerides LDL Cholesterol Direct HDL Cholesterol Free T4 Urine WBC (Auto) Urine Creatinine Salicylates Acetaminophen Chest x-ray: image reviewed ([facility] [place]) Allied health notes reviewed: nursing
[2019-03-20] MEDS: DEXTROSE 5% IN WATER 1,000 ML IV SCH (15:05)
[2019-03-20] MEDS: fentaNYL DRIP Premix 2,000 MCG/100 ML BAG IV SCH (15:10)
--- NOTE | 2019-03-20 15:33 | Progress Note ---
Assessment and Plan Patient is a 43 y/o man w/ a history of psychiatric illness (unknown which psychiatric diagnosis he has been given in the past), who presented on 03/16/19 with altered mental status. During the course of admission, patient was found to have sepsis with septic shock, rhabdomyolysis, RUBEN, and multiorgan failure. According to the patient's clinical findings, the patient likely has toxic metabolic encephalopathy. In support of this diagnosis, the multiple metabolic derangements including multiorgan failure, sepsis, septic shock requiring pressor support, RUBEN, rhabdomyolysis. Plan: 1. Metabolic encephalopathy: - Likely due to multiple underlying metabolic derangements, including multiorgan failure, sepsis, septic shock requiring pressor support, RUBEN, rhabdomyolysis. It is uncertain as to what the infectious source is, however there is also possibility of neuroleptic malignant syndrome, as mentioned by ID. - Possible Meningo-encephalitis. Recommend LP, however platelets are currently low. Recommend for it to be done once platelets are at an acceptable level, and once patient is stable enough to tolerate. - Patient on antibiotics per ID. Recommend considering placing patient on acyclovir as well, if ok with ID team. - EEG showed generalized slowing, no seizures or epileptiform activity. - CT head showed diffuse cerebral edema. - Recommend for repeat cerebral imaging with either CT head or MRI brain once patient is stable enough. - Continue supportive care per ICU/primary/ID teams. - Discussed at length with patient's brother regarding EEG findings, altered mental status due to metabolic abnormalities and infection. - Will continue to monitor patient. Thank you for allowing me to take part in the care of this patient. Nahid Carroll MD Neurology Subjective Date of service: 03/20/19 Principal diagnosis: Septic Shock; Ac. hypoxemic resp failure; Renzo. PNA; Rhabdomyolysis; RUBEN Interval history: No acute events overnight. Objective - Exam Narrative Exam: Patient is intubated, comatose. PERRL, corneal reflexes diminished, cough weakly intact. Withdraws to pain stimulus in all extremities. Spontanenous movement noted in all extremities. 2+ reflexes throughout. - Vital Sign Vital Signs - 12hr 03/20/19 03/20/19 03/20/19 03:30 03:45 04:00 Temperature Pulse Rate 82 82 82 Pulse Rate [ Anterior Bilateral Throughout] Pulse Rate [ 75 From Monitor] Respiratory 15 15 15 Rate Respiratory Rate [Anterior Bilateral Throughout] Blood Pressure 138/84 140/87 147/91 O2 Sat by Pulse 100 100 99 Oximetry 03/20/19 03/20/19 03/20/19 04:15 04:30 04:45 Temperature Pulse Rate 82 82 83 Pulse Rate [ 80 Anterior Bilateral Throughout] Pulse Rate [ From Monitor] Respiratory 14 15 15 Rate Respiratory 17 Rate [Anterior Bilateral Throughout] Blood Pressure 147/91 148/100 165/93 O2 Sat by Pulse 100 100 100 Oximetry 03/20/19 03/20/19 03/20/19 05:00 05:15 05:30 Temperature Pulse Rate 83 81 81 Pulse Rate [ Anterior Bilateral Throughout] Pulse Rate [ From Monitor] Respiratory 15 15 15 Rate Respiratory Rate [Anterior Bilateral Throughout] Blood Pressure 164/99 164/99 164/112 O2 Sat by Pulse 98 96 95 Oximetry 03/20/19 03/20/19 03/20/19 05:45 06:01 06:15 Temperature Pulse Rate 75 74 75 Pulse Rate [ Anterior Bilateral Throughout] Pulse Rate [ From Monitor] Respiratory 15 15 15 Rate Respiratory Rate [Anterior Bilateral Throughout] Blood Pressure 161/99 133/75 102/64 O2 Sat by Pulse 98 98 98 Oximetry 03/20/19 03/20/19 03/20/19 06:30 06:45 07:00 Temperature Pulse Rate 74 73 73 Pulse Rate [ Anterior Bilateral Throughout] Pulse Rate [ From Monitor] Respiratory 15 15 14 Rate Respiratory Rate [Anterior Bilateral Throughout] Blood Pressure 107/68 110/73 115/77 O2 Sat by Pulse 97 99 96 Oximetry 03/20/19 03/20/19 03/20/19 07:15 07:30 07:45 Temperature Pulse Rate 73 71 72 Pulse Rate [ Anterior Bilateral Throughout] Pulse Rate [ From Monitor] Respiratory 15 15 15 Rate Respiratory Rate [Anterior Bilateral Throughout] Blood Pressure 115/77 117/75 124/85 O2 Sat by Pulse 96 96 97 Oximetry 03/20/19 03/20/19 03/20/19 07:48 08:00 08:15 Temperature 98.2 F Pulse Rate 72 72 72 Pulse Rate [ 71 Anterior Bilateral Throughout] Pulse Rate [ 72 From Monitor] Respiratory 15 15 15 Rate Respiratory 15 Rate [Anterior Bilateral Throughout] Blood Pressure 111/77 128/86 133/89 O2 Sat by Pulse 97 98 99 Oximetry 03/20/19 03/20/19 03/20/19 08:30 08:45 09:00 Temperature Pulse Rate 72 72 72 Pulse Rate [ Anterior Bilateral Throughout] Pulse Rate [ From Monitor] Respiratory 15 15 15 Rate Respiratory Rate [Anterior Bilateral Throughout] Blood Pressure 137/90 146/85 129/84 O2 Sat by Pulse 98 98 97 Oximetry 03/20/19 03/20/19 03/20/19 09:15 09:31 09:45 Temperature Pulse Rate 72 72 73 Pulse Rate [ Anterior Bilateral Throughout] Pulse Rate [ From Monitor] Respiratory 15 15 14 Rate Respiratory Rate [Anterior Bilateral Throughout] Blood Pressure 129/84 127/84 127/84 O2 Sat by Pulse 96 97 97 Oximetry 03/20/19 03/20/19 03/20/19 10:00 10:15 10:30 Temperature Pulse Rate 73 75 72 Pulse Rate [ Anterior Bilateral Throughout] Pulse Rate [ From Monitor] Respiratory 15 14 15 Rate Respiratory Rate [Anterior Bilateral Throughout] Blood Pressure 120/77 120/77 125/82 O2 Sat by Pulse 96 97 97 Oximetry 03/20/19 03/20/19 03/20/19 10:45 11:01 11:15 Temperature Pulse Rate 75 74 76 Pulse Rate [ Anterior Bilateral Throughout] Pulse Rate [ From Monitor] Respiratory 15 15 15 Rate Respiratory Rate [Anterior Bilateral Throughout] Blood Pressure 125/82 125/82 125/82 O2 Sat by Pulse 97 97 95 Oximetry 03/20/19 03/20/19 03/20/19 11:30 11:45 12:00 Temperature 98.8 F Pulse Rate 76 75 75 Pulse Rate [ Anterior Bilateral Throughout] Pulse Rate [ 75 From Monitor] Respiratory 15 16 15 Rate Respiratory Rate [Anterior Bilateral Throughout] Blood Pressure 137/76 137/76 O2 Sat by Pulse 98 97 100 Oximetry 03/20/19 03/20/19 03/20/19 12:01 12:15 12:30 Temperature Pulse Rate 77 75 76 Pulse Rate [ Anterior Bilateral Throughout] Pulse Rate [ From Monitor] Respiratory 14 15 15 Rate Respiratory Rate [Anterior Bilateral Throughout] Blood Pressure 137/76 137/76 139/88 O2 Sat by Pulse 98 97 97 Oximetry 03/20/19 03/20/19 03/20/19 12:38 12:41 12:45 Temperature Pulse Rate 79 80 Pulse Rate [ 80 Anterior Bilateral Throughout] Pulse Rate [ From Monitor] Respiratory 26 H 21 Rate Respiratory 27 H Rate [Anterior Bilateral Throughout] Blood Pressure 139/88 139/88 O2 Sat by Pulse 98 99 Oximetry 03/20/19 03/20/19 03/20/19 13:01 13:15 13:31 Temperature Pulse Rate 83 84 82 Pulse Rate [ Anterior Bilateral Throughout] Pulse Rate [ From Monitor] Respiratory 16 12 19 Rate Respiratory Rate [Anterior Bilateral Throughout] Blood Pressure 115/72 115/72 137/85 O2 Sat by Pulse 97 98 100 Oximetry 03/20/19 03/20/19 03/20/19 13:45 14:01 14:15 Temperature Pulse Rate 86 86 84 Pulse Rate [ Anterior Bilateral Throughout] Pulse Rate [ From Monitor] Respiratory 14 14 14 Rate Respiratory Rate [Anterior Bilateral Throughout] Blood Pressure 137/85 115/82 115/82 O2 Sat by Pulse 98 99 100 Oximetry 03/20/19 03/20/19 03/20/19 14:31 14:45 15:00 Temperature Pulse Rate 83 85 88 Pulse Rate [ Anterior Bilateral Throughout] Pulse Rate [ From Monitor] Respiratory 10 L 15 15 Rate Respiratory Rate [Anterior Bilateral Throughout] Blood Pressure 137/86 137/86 146/86 O2 Sat by Pulse 100 100 100 Oximetry - General Apperance Constitutional: acutely ill - EENT EENT: ATNC, PERRL, mucous membranes moist - Respiratory Respiratory: decreased breath sounds - Cardiovascular Cardiovascular: normal S1, normal S2 Extremities: no peripheral edema bilat, no clubbing, cyanosis - Gastrointestinal Gastrointestinal: normoactive bowel sounds, soft, non-tender - Integumentary Integumentary: normal - Laboratory Findings CBC and BMP: 03/20/19 09:30 03/20/19 09:30 Abnormal Lab Findings: Abnormal Labs 03/16/19 03/16/19 03/16/19 15:32 16:03 16:05 WBC 27.0 H RBC 5.55 H Hgb 15.7 H Hct 47.1 H RDW Plt Count 75 L Seg Neuts % (Manual) 85.0 H Lymphocytes % (Manual) 2.0 L Monocytes % (Manual) Seg Neutrophils # Man 23.0 H Lymphocytes # (Manual) 0.5 L Monocytes # (Manual) PT INR POC ABG pH ABG pH POC ABG pCO2 POC ABG pO2 ABG pO2 ABG O2 Saturation ABG Base Excess ABG Hemoglobin Oxyhemoglobin Sodium 127 L Potassium Chloride 87.8 L Carbon Dioxide 17 L BUN 49 H Creatinine 5.8 H Glucose 150 H POC Glucose 118 H Lactic Acid Calcium 6.6 L Phosphorus Magnesium 1.10 L Total Bilirubin Direct Bilirubin AST ALT Alkaline Phosphatase Total Creatine Kinase 94124 H CK-MB (CK-2) Troponin T C-Reactive Protein Total Protein Albumin Triglycerides LDL Cholesterol Direct HDL Cholesterol Free T4 Urine WBC (Auto) Urine Creatinine Salicylates Acetaminophen 03/16/19 03/16/19 03/16/19 16:59 17:05 17:05 WBC RBC Hgb Hct RDW Plt Count Seg Neuts % (Manual) Lymphocytes % (Manual) Monocytes % (Manual) Seg Neutrophils # Man Lymphocytes # (Manual) Monocytes # (Manual) PT INR POC ABG pH 7.297 L ABG pH POC ABG pCO2 33.0 L POC ABG pO2 ABG pO2 ABG O2 Saturation ABG Base Excess ABG Hemoglobin Oxyhemoglobin Sodium Potassium Chloride Carbon Dioxide BUN Creatinine Glucose POC Glucose Lactic Acid Calcium Phosphorus Magnesium Total Bilirubin Direct Bilirubin AST ALT Alkaline Phosphatase Total Creatine Kinase 40131 H CK-MB (CK-2) 83.1 H Troponin T C-Reactive Protein Total Protein Albumin Triglycerides LDL Cholesterol Direct HDL Cholesterol Free T4 0.72 L Urine WBC (Auto) Urine Creatinine Salicylates Acetaminophen 03/16/19 03/16/19 03/16/19 17:05 17:05 17:05 WBC RBC Hgb Hct RDW Plt Count Seg Neuts % (Manual) Lymphocytes % (Manual) Monocytes % (Manual) Seg Neutrophils # Man Lymphocytes # (Manual) Monocytes # (Manual) PT INR POC ABG pH ABG pH POC ABG pCO2 POC ABG pO2 ABG pO2 ABG O2 Saturation ABG Base Excess ABG Hemoglobin Oxyhemoglobin Sodium Potassium Chloride Carbon Dioxide BUN Creatinine Glucose POC Glucose Lactic Acid 5.10 H* Calcium Phosphorus Magnesium Total Bilirubin Direct Bilirubin AST ALT Alkaline Phosphatase Total Creatine Kinase CK-MB (CK-2) Troponin T C-Reactive Protein Total Protein Albumin Triglycerides LDL Cholesterol Direct HDL Cholesterol Free T4 Urine WBC (Auto) Urine Creatinine Salicylates < 0.3 L Acetaminophen < 5.0 L 03/16/19 03/16/19 03/16/19 17:05 17:05 20:35 WBC RBC Hgb Hct RDW Plt Count Seg Neuts % (Manual) Lymphocytes % (Manual) Monocytes % (Manual) Seg Neutrophils # Man Lymphocytes # (Manual) Monocytes # (Manual) PT 15.9 H INR 1.30 H POC ABG pH ABG pH POC ABG pCO2 POC ABG pO2 ABG pO2 ABG O2 Saturation ABG Base Excess ABG Hemoglobin Oxyhemoglobin Sodium Potassium Chloride Carbon Dioxide BUN Creatinine Glucose POC Glucose Lactic Acid 3.30 H* Calcium Phosphorus Magnesium Total Bilirubin 6.20 H Direct Bilirubin 5.9 H AST 800 H ALT 120 H Alkaline Phosphatase Total Creatine Kinase CK-MB (CK-2) Troponin T C-Reactive Protein Total Protein 4.4 L Albumin 2.4 L Triglycerides LDL Cholesterol Direct HDL Cholesterol Free T4 Urine WBC (Auto) Urine Creatinine Salicylates Acetaminophen 03/16/19 03/16/19 03/16/19 21:45 22:32 Unknown WBC RBC Hgb Hct RDW Plt Count Seg Neuts % (Manual) Lymphocytes % (Manual) Monocytes % (Manual) Seg Neutrophils # Man Lymphocytes # (Manual) Monocytes # (Manual) PT INR POC ABG pH ABG pH POC ABG pCO2 POC ABG pO2 ABG pO2 ABG O2 Saturation ABG Base Excess ABG Hemoglobin Oxyhemoglobin Sodium Potassium Chloride Carbon Dioxide BUN Creatinine Glucose POC Glucose Lactic Acid 3.30 H* 3.00 H* Calcium Phosphorus Magnesium Total Bilirubin Direct Bilirubin AST ALT Alkaline Phosphatase Total Creatine Kinase CK-MB (CK-2) Troponin T 0.047 H D C-Reactive Protein Total Protein Albumin Triglycerides 395 H LDL Cholesterol Direct 10 L HDL Cholesterol 7 L Free T4 Urine WBC (Auto) Urine Creatinine Salicylates Acetaminophen 03/17/19 03/17/19 03/17/19 03:45 03:45 03:45 WBC RBC Hgb Hct RDW Plt Count Seg Neuts % (Manual) Lymphocytes % (Manual) Monocytes % (Manual) Seg Neutrophils # Man Lymphocytes # (Manual) Monocytes # (Manual) PT INR POC ABG pH ABG pH POC ABG pCO2 POC ABG pO2 ABG pO2 ABG O2 Saturation ABG Base Excess ABG Hemoglobin Oxyhemoglobin Sodium 131 L Potassium Chloride 88.9 L Carbon Dioxide BUN 53 H Creatinine 7.1 H Glucose POC Glucose Lactic Acid 4.10 H* Calcium 5.4 L* D Phosphorus 7.30 H Magnesium 1.60 L Total Bilirubin 5.90 H Direct Bilirubin AST 801 H ALT 109 H Alkaline Phosphatase Total Creatine Kinase 66666 H 11370 H CK-MB (CK-2) 41.5 H Troponin T 0.054 H C-Reactive Protein Total Protein 4.5 L Albumin 2.0 L Triglycerides LDL Cholesterol Direct HDL Cholesterol Free T4 Urine WBC (Auto) Urine Creatinine Salicylates Acetaminophen 03/17/19 03/17/19 03/17/19 05:47 07:16 07:16 WBC RBC Hgb Hct RDW Plt Count Seg Neuts % (Manual) Lymphocytes % (Manual) Monocytes % (Manual) Seg Neutrophils # Man Lymphocytes # (Manual) Monocytes # (Manual) PT INR POC ABG pH 7.193 L ABG pH POC ABG pCO2 45.2 H POC ABG pO2 65 L ABG pO2 ABG O2 Saturation ABG Base Excess ABG Hemoglobin Oxyhemoglobin Sodium Potassium Chloride Carbon Dioxide BUN Creatinine Glucose POC Glucose Lactic Acid 5.50 H* Calcium Phosphorus Magnesium Total Bilirubin Direct Bilirubin AST ALT Alkaline Phosphatase Total Creatine Kinase 38991 H CK-MB (CK-2) 54.3 H Troponin T 0.058 H C-Reactive Protein Total Protein Albumin Triglycerides LDL Cholesterol Direct HDL Cholesterol Free T4 Urine WBC (Auto) Urine Creatinine Salicylates Acetaminophen 03/17/19 03/17/19 03/17/19 11:52 12:51 13:01 WBC RBC Hgb Hct RDW Plt Count Seg Neuts % (Manual) Lymphocytes % (Manual) Monocytes % (Manual) Seg Neutrophils # Man Lymphocytes # (Manual) Monocytes # (Manual) PT INR POC ABG pH 7.154 L ABG pH POC ABG pCO2 34.3 L POC ABG pO2 73 L ABG pO2 ABG O2 Saturation ABG Base Excess ABG Hemoglobin Oxyhemoglobin Sodium Potassium Chloride Carbon Dioxide BUN Creatinine Glucose POC Glucose 60 L Lactic Acid 8.20 H* Calcium Phosphorus Magnesium Total Bilirubin Direct Bilirubin AST ALT Alkaline Phosphatase Total Creatine Kinase CK-MB (CK-2) Troponin T C-Reactive Protein Total Protein Albumin Triglycerides LDL Cholesterol Direct HDL Cholesterol Free T4 Urine WBC (Auto) Urine Creatinine Salicylates Acetaminophen 03/17/19 03/17/19 03/17/19 14:37 14:37 14:37 WBC 29.3 H RBC Hgb Hct RDW 15.8 H Plt Count 45 L Seg Neuts % (Manual) 81.0 H Lymphocytes % (Manual) 1.0 L Monocytes % (Manual) 15.0 H Seg Neutrophils # Man 23.7 H Lymphocytes # (Manual) 0.3 L Monocytes # (Manual) 4.4 H PT INR POC ABG pH ABG pH POC ABG pCO2 POC ABG pO2 ABG pO2 ABG O2 Saturation ABG Base Excess ABG Hemoglobin Oxyhemoglobin Sodium Potassium Chloride Carbon Dioxide BUN Creatinine Glucose POC Glucose Lactic Acid 4.90 H* Calcium Phosphorus Magnesium Total Bilirubin Direct Bilirubin AST ALT Alkaline Phosphatase Total Creatine Kinase CK-MB (CK-2) Troponin T C-Reactive Protein 24.90 H Total Protein Albumin Triglycerides LDL Cholesterol Direct HDL Cholesterol Free T4 Urine WBC (Auto) Urine Creatinine Salicylates Acetaminophen 03/17/19 03/17/19 03/17/19 16:05 16:05 17:02 WBC RBC Hgb Hct RDW Plt Count Seg Neuts % (Manual) Lymphocytes % (Manual) Monocytes % (Manual) Seg Neutrophils # Man Lymphocytes # (Manual) Monocytes # (Manual) PT INR POC ABG pH 7.183 L ABG pH POC ABG pCO2 POC ABG pO2 65 L ABG pO2 ABG O2 Saturation ABG Base Excess ABG Hemoglobin Oxyhemoglobin Sodium Potassium Chloride Carbon Dioxide BUN Creatinine Glucose POC Glucose Lactic Acid Calcium Phosphorus Magnesium Total Bilirubin Direct Bilirubin AST ALT Alkaline Phosphatase Total Creatine Kinase CK-MB (CK-2) Troponin T C-Reactive Protein Total Protein Albumin Triglycerides LDL Cholesterol Direct HDL Cholesterol Free T4 Urine WBC (Auto) 30.0 H Urine Creatinine 106.6 H Salicylates Acetaminophen 03/18/19 03/18/19 03/18/19 05:12 05:16 05:53 WBC RBC Hgb Hct RDW Plt Count Seg Neuts % (Manual) Lymphocytes % (Manual) Monocytes % (Manual) Seg Neutrophils # Man Lymphocytes # (Manual) Monocytes # (Manual) PT INR POC ABG pH 7.257 L ABG pH POC ABG pCO2 31.6 L POC ABG pO2 69 L ABG pO2 ABG O2 Saturation ABG Base Excess ABG Hemoglobin Oxyhemoglobin Sodium Potassium Chloride Carbon Dioxide BUN Creatinine Glucose POC Glucose 141 H Lactic Acid 5.00 H* Calcium Phosphorus Magnesium Total Bilirubin Direct Bilirubin AST ALT Alkaline Phosphatase Total Creatine Kinase CK-MB (CK-2) Troponin T C-Reactive Protein Total Protein Albumin Triglycerides LDL Cholesterol Direct HDL Cholesterol Free T4 Urine WBC (Auto) Urine Creatinine Salicylates Acetaminophen 03/18/19 03/18/19 03/18/19 06:57 08:40 08:40 WBC 31.7 H RBC Hgb Hct RDW 15.5 H Plt Count 35 L Seg Neuts % (Manual) Lymphocytes % (Manual) Monocytes % (Manual) Seg Neutrophils # Man Lymphocytes # (Manual) Monocytes # (Manual) PT INR POC ABG pH ABG pH POC ABG pCO2 POC ABG pO2 ABG pO2 ABG O2 Saturation ABG Base Excess ABG Hemoglobin Oxyhemoglobin Sodium 132 L Potassium 5.5 H D Chloride 88.5 L Carbon Dioxide 18 L BUN 71 H Creatinine 8.1 H Glucose 205 H POC Glucose Lactic Acid 5.00 H* Calcium 4.1 L* D Phosphorus Magnesium 2.40 H Total Bilirubin 7.50 H Direct Bilirubin AST 1088 H ALT 159 H Alkaline Phosphatase 190 H Total Creatine Kinase 901146 H CK-MB (CK-2) Troponin T C-Reactive Protein Total Protein 4.7 L Albumin 1.8 L Triglycerides LDL Cholesterol Direct HDL Cholesterol Free T4 Urine WBC (Auto) Urine Creatinine Salicylates Acetaminophen 03/18/19 03/18/19 03/18/19 12:33 12:50 13:19 WBC RBC Hgb Hct RDW Plt Count Seg Neuts % (Manual) Lymphocytes % (Manual) Monocytes % (Manual) Seg Neutrophils # Man Lymphocytes # (Manual) Monocytes # (Manual) PT INR POC ABG pH 7.282 L ABG pH POC ABG pCO2 POC ABG pO2 67 L ABG pO2 ABG O2 Saturation ABG Base Excess ABG Hemoglobin Oxyhemoglobin Sodium Potassium Chloride Carbon Dioxide BUN Creatinine Glucose POC Glucose 129 H Lactic Acid 3.30 H* Calcium Phosphorus Magnesium Total Bilirubin Direct Bilirubin AST ALT Alkaline Phosphatase Total Creatine Kinase CK-MB (CK-2) Troponin T C-Reactive Protein Total Protein Albumin Triglycerides LDL Cholesterol Direct HDL Cholesterol Free T4 Urine WBC (Auto) Urine Creatinine Salicylates Acetaminophen 03/18/19 03/18/19 03/18/19 13:19 16:50 18:11 WBC RBC Hgb Hct RDW Plt Count Seg Neuts % (Manual) Lymphocytes % (Manual) Monocytes % (Manual) Seg Neutrophils # Man Lymphocytes # (Manual) Monocytes # (Manual) PT INR POC ABG pH ABG pH POC ABG pCO2 POC ABG pO2 59 L ABG pO2 ABG O2 Saturation ABG Base Excess ABG Hemoglobin Oxyhemoglobin Sodium Potassium Chloride Carbon Dioxide BUN Creatinine Glucose POC Glucose 151 H Lactic Acid Calcium 4.2 L* Phosphorus Magnesium Total Bilirubin Direct Bilirubin AST ALT Alkaline Phosphatase Total Creatine Kinase 356974 H CK-MB (CK-2) Troponin T C-Reactive Protein Total Protein Albumin Triglycerides LDL Cholesterol Direct HDL Cholesterol Free T4 Urine WBC (Auto) Urine Creatinine Salicylates Acetaminophen 03/18/19 03/18/19 03/19/19 18:20 23:39 01:42 WBC RBC Hgb Hct RDW Plt Count Seg Neuts % (Manual) Lymphocytes % (Manual) Monocytes % (Manual) Seg Neutrophils # Man Lymphocytes # (Manual) Monocytes # (Manual) PT INR POC ABG pH 7.345 L ABG pH 7.285 L POC ABG pCO2 POC ABG pO2 59 L ABG pO2 44.0 L ABG O2 Saturation 70.9 L ABG Base Excess -5.7 L ABG Hemoglobin 11.9 L Oxyhemoglobin 69.6 L Sodium Potassium Chloride Carbon Dioxide BUN Creatinine Glucose POC Glucose 152 H Lactic Acid Calcium Phosphorus Magnesium Total Bilirubin Direct Bilirubin AST ALT Alkaline Phosphatase Total Creatine Kinase CK-MB (CK-2) Troponin T C-Reactive Protein Total Protein Albumin Triglycerides LDL Cholesterol Direct HDL Cholesterol Free T4 Urine WBC (Auto) Urine Creatinine Salicylates Acetaminophen 03/19/19 03/19/19 03/19/19 04:00 04:00 05:35 WBC 36.5 H RBC Hgb Hct RDW 15.8 H Plt Count 35 L Seg Neuts % (Manual) Lymphocytes % (Manual) Monocytes % (Manual) Seg Neutrophils # Man Lymphocytes # (Manual) Monocytes # (Manual) PT INR POC ABG pH ABG pH 7.265 L POC ABG pCO2 POC ABG pO2 ABG pO2 35.4 L* ABG O2 Saturation 54.4 L ABG Base Excess -6.7 L ABG Hemoglobin 12.9 L Oxyhemoglobin 53.4 L Sodium 132 L Potassium 5.7 H Chloride 89.8 L Carbon Dioxide 19 L BUN 62 H Creatinine 6.4 H Glucose 151 H POC Glucose Lactic Acid Calcium 5.2 L* D Phosphorus Magnesium Total Bilirubin 7.80 H Direct Bilirubin AST 682 H ALT 130 H Alkaline Phosphatase 167 H Total Creatine Kinase CK-MB (CK-2) Troponin T C-Reactive Protein Total Protein 4.8 L Albumin 2.3 L Triglycerides LDL Cholesterol Direct HDL Cholesterol Free T4 Urine WBC (Auto) Urine Creatinine Salicylates Acetaminophen 03/19/19 03/19/19 03/19/19 05:49 09:16 09:50 WBC RBC Hgb Hct RDW Plt Count Seg Neuts % (Manual) Lymphocytes % (Manual) Monocytes % (Manual) Seg Neutrophils # Man Lymphocytes # (Manual) Monocytes # (Manual) PT INR POC ABG pH 7.222 L ABG pH POC ABG pCO2 56.6 H POC ABG pO2 ABG pO2 ABG O2 Saturation ABG Base Excess ABG Hemoglobin Oxyhemoglobin Sodium Potassium Chloride Carbon Dioxide BUN Creatinine Glucose POC Glucose 154 H Lactic Acid 2.70 H* Calcium Phosphorus Magnesium Total Bilirubin Direct Bilirubin AST ALT Alkaline Phosphatase Total Creatine Kinase CK-MB (CK-2) Troponin T C-Reactive Protein Total Protein Albumin Triglycerides LDL Cholesterol Direct HDL Cholesterol Free T4 Urine WBC (Auto) Urine Creatinine Salicylates Acetaminophen 03/19/19 03/19/19 03/19/19 09:50 11:28 17:58 WBC RBC Hgb Hct RDW Plt Count Seg Neuts % (Manual) Lymphocytes % (Manual) Monocytes % (Manual) Seg Neutrophils # Man Lymphocytes # (Manual) Monocytes # (Manual) PT INR POC ABG pH 7.250 L ABG pH POC ABG pCO2 52.6 H POC ABG pO2 ABG pO2 ABG O2 Saturation ABG Base Excess ABG Hemoglobin Oxyhemoglobin Sodium Potassium Chloride Carbon Dioxide BUN Creatinine Glucose POC Glucose 160 H Lactic Acid Calcium Phosphorus Magnesium Total Bilirubin Direct Bilirubin AST ALT Alkaline Phosphatase Total Creatine Kinase 96018 H CK-MB (CK-2) Troponin T C-Reactive Protein Total Protein Albumin Triglycerides LDL Cholesterol Direct HDL Cholesterol Free T4 Urine WBC (Auto) Urine Creatinine Salicylates Acetaminophen 03/19/19 03/19/19 03/20/19 19:48 21:03 02:16 WBC RBC Hgb Hct RDW Plt Count Seg Neuts % (Manual) Lymphocytes % (Manual) Monocytes % (Manual) Seg Neutrophils # Man Lymphocytes # (Manual) Monocytes # (Manual) PT INR POC ABG pH 7.279 L ABG pH POC ABG pCO2 50.3 H POC ABG pO2 129 H ABG pO2 ABG O2 Saturation ABG Base Excess ABG Hemoglobin Oxyhemoglobin Sodium Potassium Chloride Carbon Dioxide BUN Creatinine Glucose POC Glucose 119 H 119 H Lactic Acid Calcium Phosphorus Magnesium Total Bilirubin Direct Bilirubin AST ALT Alkaline Phosphatase Total Creatine Kinase CK-MB (CK-2) Troponin T C-Reactive Protein Total Protein Albumin Triglycerides LDL Cholesterol Direct HDL Cholesterol Free T4 Urine WBC (Auto) Urine Creatinine Salicylates Acetaminophen 03/20/19 03/20/19 03/20/19 04:23 05:05 09:30 WBC 36.3 H RBC Hgb Hct RDW 15.5 H Plt Count 29 L Seg Neuts % (Manual) Lymphocytes % (Manual) Monocytes % (Manual) Seg Neutrophils # Man Lymphocytes # (Manual) Monocytes # (Manual) PT INR POC ABG pH ABG pH POC ABG pCO2 POC ABG pO2 280 H ABG pO2 ABG O2 Saturation ABG Base Excess ABG Hemoglobin Oxyhemoglobin Sodium Potassium Chloride Carbon Dioxide BUN Creatinine Glucose POC Glucose 115 H Lactic Acid Calcium Phosphorus Magnesium Total Bilirubin Direct Bilirubin AST ALT Alkaline Phosphatase Total Creatine Kinase CK-MB (CK-2) Troponin T C-Reactive Protein Total Protein Albumin Triglycerides LDL Cholesterol Direct HDL Cholesterol Free T4 Urine WBC (Auto) Urine Creatinine Salicylates Acetaminophen 03/20/19 03/20/19 03/20/19 09:30 09:30 11:34 WBC RBC Hgb Hct RDW Plt Count Seg Neuts % (Manual) Lymphocytes % (Manual) Monocytes % (Manual) Seg Neutrophils # Man Lymphocytes # (Manual) Monocytes # (Manual) PT INR POC ABG pH ABG pH POC ABG pCO2 POC ABG pO2 ABG pO2 ABG O2 Saturation ABG Base Excess ABG Hemoglobin Oxyhemoglobin Sodium 131 L Potassium Chloride 92.3 L Carbon Dioxide 20 L BUN 68 H Creatinine 6.1 H Glucose 164 H POC Glucose 141 H Lactic Acid Calcium 5.3 L* Phosphorus Magnesium Total Bilirubin 9.50 H Direct Bilirubin AST 381 H ALT 116 H Alkaline Phosphatase 255 H Total Creatine Kinase 30425 H CK-MB (CK-2) Troponin T C-Reactive Protein Total Protein 5.1 L Albumin 2.3 L Triglycerides LDL Cholesterol Direct HDL Cholesterol Free T4 Urine WBC (Auto) Urine Creatinine Salicylates Acetaminophen
--- NOTE | 2019-03-20 17:22 | Progress Note ---
Assessment and Plan Assessment and plan: Patient is a 43 year old male with PMH of GERD, Obesity, and per family has been homeless on the streets in [place] admitted to our facility following arrival via private vehicle with AMS x 2 Days per friend. On arrival was intubated in the ED noted to have rectal temp of 105 AND SVT with rate in the 250 requiring 2 shocks delivery * Initial rhythm appeared to be SVT * Per friend patient complaining of feeling ill and has some left eye discharge, cold, clammy and diaphoretic by the time arrived to the hospital. Also mentions a possibility of a right axilla abscess. The and went to stay with his girlfriend the last 2 days and this morning when he saw the patient he was ill-appearing but sleeping. * Currently on 4 pressors * Start on Elizabeth culture including coverage for possible Meningitis CHEST 1 VIEW . IMPRESSION: 1. Endotracheal tube in good position. 2. Nasogastric tube doubled back on itself at the level of the salina with the tip not seen. The tube repositioned. CT of the chest, abdomen and pelvis without contrast . IMPRESSION: 1. Parenchymal disease in both lower lobes posteromedially may be related to aspiration pneumonia. 2. Moderately dilated small bowel bowel loops in the mid to upper abdomen anteriorly with mild associated bowel wall thickening. Loca lized enteritis and small bowel ischemia should be considered. CT head/brain wo contrast. IMPRESSION: 1. Some component of diffuse cerebral edema cannot be excluded. However, this finding may be artifactual secondary to patient positioning. Close follow-up is recommended. No definitive signs of herniation or large territorial infarct at this time. 2. Otherwise, no focal mass, hemorrhage, hydrocephalus, or large infarct seen. Multi-Organ failure Septic Shock Severe Sepsis Acute Metabolic Encephalopathy Acute Respiratory Failure with Hypoxia Presume ARDS SVT with Polymorphic Vtach Rhabdomyolysis Severe Metabolic Acidosis Acute Cystitis Acute Kidney Failure secondary to ATN ANURIC Thrombocytopenia, Presume DIC Shock Liver Hypomagnesemia, Suspect Aspiration pneumonia Right Axillary cellulitis Enteritis Hypoglycemia-IMPROVED NMS; was considered and mental health consulted recommended supportive care because of the critical nature of the condition. Plan: Continue supportive care Neurology consult; appreciated EEG; generalized slowing, no epilpetiform focus Dialysis was done; nephrology is following Specialist impressions noted and appreciated Wean pressors as needed Continue bicarb drip Holding further fluids due to poor urine output, Aspiration Precautions and VAP bundle Echo reviewed and noted Ultrasound to further evaluate right axilla to r/o abscess vs LAD Monitor Blood glucose prevent hypoglycemia UDS noted, only shows benzos, ?from here or outside. per family no hx of drugs CK is still very high Awaiting labs With four pressors will not transfuse Patients BP still too fragile to attempt any move, or even change to Bariatric bed DVT/GI prophy Poor prognosis Family informed and updated of clinical condition Advanced care planning, family opting against DNR, wants all done. Will like a call if patient codes as they may opt for limited code The high probability of a clinically significant, sudden or life threatening deterioration of the [multiple organs] system(s) required my full and direct attention, intervention and personal management. The aggregate critical care time was [45] minutes. This time is in addition to time spent performing reported procedures but includes the following: [x] Data Review and interpretation [x] Patient assessment and monitoring of vital signs [x] Documentation [x] Medication orders and management History Interval history: Patient was seen and evaluated this morning patient was intubated and on mechanical ventilation. Patient was on 3 pressers. Discussed the management plan with patient's nurse. Hospitalist Physical - Constitutional Vitals: Temp Pulse Resp BP Pulse Ox 99.9 F H 82 20 155/91 100 03/20/19 16:00 03/20/19 17:01 03/20/19 17:01 03/20/19 17:01 03/20/19 17:01 General appearance: Present: severe distress, obese - EENT ENT: clear oral mucosa - Respiratory Details: Patient was intubated and on mechanical ventilation. - Cardiovascular Rhythm: regular Heart Sounds: Present: S1 & S2 - Extremities Extremities: no ischemia, No edema Peripheral Pulses: within normal limits - Abdominal General gastrointestinal: soft, non-distended - Integumentary Integumentary: Present: clear, warm, dry - Neurologic Neurologic: other (Patient is comatose and couldn't assess fully. Patient withdraw for pain, reflxes are intact, has gag reflex.) Results - Labs CBC & Chem 7: 03/20/19 09:30 03/20/19 09:30 Labs: Laboratory Last Values WBC 36.3 K/mm3 (4.5-11.0) H 03/20/19 09:30 RBC 4.54 M/mm3 (3.65-5.03) 03/20/19 09:30 Hgb 12.7 gm/dl (11.8-15.2) 03/20/19 09:30 Hct 38.0 % (35.5-45.6) 03/20/19 09:30 MCV 84 fl (84-94) 03/20/19 09:30 MCH 28 pg (28-32) 03/20/19 09:30 MCHC 34 % (32-34) 03/20/19 09:30 RDW 15.5 % (13.2-15.2) H 03/20/19 09:30 Plt Count 29 K/mm3 (140-440) L 03/20/19 09:30 Add Manual Diff Complete 03/17/19 14:37 Total Counted 100 03/17/19 14:37 Seg Neutrophils % Cv/Cvn Cv Tsc System Operator 03/17/19 14:37 Seg Neuts % (Manual) 81.0 % (40.0-70.0) H 03/17/19 14:37 1.0 % 03/17/19 14:37 1.0 % (13.4-35.0) L 03/17/19 14:37 Reactive Lymphs % (Man) 1.0 % 03/17/19 14:37 15.0 % (0.0-7.3) H 03/17/19 14:37 1.0 % (0.0-4.3) 03/17/19 14:37 0 % (0.0-1.8) 03/17/19 14:37 0 % 03/17/19 14:37 0 % 03/17/19 14:37 0 % 03/17/19 14:37 0 % 03/17/19 14:37 Nucleated RBC % Not Reportable 03/17/19 14:37 Seg Neutrophils # Man 23.7 K/mm3 (1.8-7.7) H 03/17/19 14:37 Band Neutrophils # 0.3 K/mm3 03/17/19 14:37 0.3 K/mm3 (1.2-5.4) L 03/17/19 14:37 Abs React Lymphs (Man) 0.3 K/mm3 03/17/19 14:37 4.4 K/mm3 (0.0-0.8) H 03/17/19 14:37 0.3 K/mm3 (0.0-0.4) 03/17/19 14:37 0.0 K/mm3 (0.0-0.1) 03/17/19 14:37 0.0 K/mm3 03/17/19 14:37 0.0 K/mm3 03/17/19 14:37 0.0 K/mm3 03/17/19 14:37 Blast Cells # 0.0 K/mm3 03/17/19 14:37 WBC Morphology Not Reportable 03/17/19 14:37 Hypersegmented Neuts Not Reportable 03/17/19 14:37 Hyposegmented Neuts Not Reportable 03/17/19 14:37 Hypogranular Neuts Not Reportable 03/17/19 14:37 Not Reportable 03/17/19 14:37 Not Reportable 03/17/19 14:37 Not Reportable 03/17/19 14:37 Not Reportable 03/17/19 14:37 Not Reportable 03/17/19 14:37 Not Reportable 03/17/19 14:37 Consistent w auto 03/17/19 14:37 Not Reportable 03/17/19 14:37 Plt Clumps, EDTA Not Reportable 03/17/19 14:37 Not Reportable 03/17/19 14:37 Not Reportable 03/17/19 14:37 Not Reportable 03/17/19 14:37 Plt Morphology Comment Not Reportable 03/17/19 14:37 RBC Morphology Normal 03/17/19 14:37 Dimorphic RBCs Not Reportable 03/17/19 14:37 Not Reportable 03/17/19 14:37 Not Reportable 03/17/19 14:37 Not Reportable 03/17/19 14:37 Not Reportable 03/17/19 14:37 Not Reportable 03/17/19 14:37 Not Reportable 03/17/19 14:37 Not Reportable 03/17/19 14:37 Not Reportable 03/17/19 14:37 Not Reportable 03/17/19 14:37 Not Reportable 03/17/19 14:37 Not Reportable 03/17/19 14:37 Not Reportable 03/17/19 14:37 Not Reportable 03/17/19 14:37 Not Reportable 03/17/19 14:37 Not Reportable 03/17/19 14:37 Not Reportable 03/17/19 14:37 Not Reportable 03/17/19 14:37 Not Reportable 03/17/19 14:37 Not Reportable 03/17/19 14:37 Acanthocytes (Spur) Not Reportable 03/17/19 14:37 Rouleaux Not Reportable 03/17/19 14:37 Not Reportable 03/17/19 14:37 Not Reportable 03/17/19 14:37 Not Reportable 03/17/19 14:37 Not Reportable 03/17/19 14:37 Hem Pathologist Commnt No 03/17/19 14:37 PT 15.9 Sec. (12.2-14.9) H 03/16/19 17:05 INR 1.30 (0.87-1.13) H 03/16/19 17:05 APTT 31.7 Sec. (24.2-36.6) 03/16/19 17:05 POC ABG pH 7.352 (7.35-7.45) 03/20/19 04:23 ABG pH 7.265 pH Units (7.350-7.450) L 03/19/19 05:35 POC ABG pCO2 42.2 (35-45) 03/20/19 04:23 ABG pCO2 45.5 mm Hg 03/19/19 05:35 POC ABG pO2 280 (80-105) H 03/20/19 04:23 ABG pO2 35.4 mm Hg (80.0-90.0) L* 03/19/19 05:35 POC ABG HCO3 23.4 (22-26 mml/L) 03/20/19 04:23 ABG HCO3 20.2 mmol/L (20.0-26.0) 03/19/19 05:35 POC ABG Total CO2 25 (23-27mmol/L) 03/20/19 04:23 POC ABG O2 Sat 100 03/20/19 04:23 ABG O2 Saturation 54.4 % (95.0-99.0) L 03/19/19 05:35 ABG O2 Content 9.7 (0.0-44) 03/19/19 05:35 POC ABG Base Excess -2 ((-2) - (+3)mmol/L) 03/20/19 04:23 ABG Base Excess -6.7 mmol/L (-2.0-3.0) L 03/19/19 05:35 ABG Hemoglobin 12.9 gm/dl (14.0-18.0) L 03/19/19 05:35 ABG Carboxyhemoglobin 1.0 % (0.0-5.0) 03/19/19 05:35 ABG Methemoglobin 0.8 % (0.0-1.5) 03/19/19 05:35 53.4 % (95.0-99.0) L 03/19/19 05:35 70 % 03/20/19 04:23 Sodium 131 mmol/L (137-145) L 03/20/19 09:30 Potassium 4.8 mmol/L (3.6-5.0) 03/20/19 09:30 Chloride 92.3 mmol/L (98-107) L 03/20/19 09:30 Carbon Dioxide 20 mmol/L (22-30) L 03/20/19 09:30 24 mmol/L 03/20/19 09:30 BUN 68 mg/dL (9-20) H 03/20/19 09:30 6.1 mg/dL (0.8-1.5) H 03/20/19 09:30 Estimated GFR 12 ml/min 03/20/19 09:30 11 % 03/20/19 09:30 Glucose 164 mg/dL (75-100) H 03/20/19 09:30 POC Glucose 141 (70-105) H 03/20/19 11:34 Lactic Acid 2.90 mmol/L (0.7-2.0) H* 03/20/19 14:41 Calcium 5.3 mg/dL (8.4-10.2) L* 03/20/19 09:30 Phosphorus 7.30 mg/dL (2.5-4.5) H 03/17/19 03:45 Magnesium 2.40 mg/dL (1.7-2.3) H 03/18/19 08:40 9.50 mg/dL (0.1-1.2) H 03/20/19 09:30 5.9 mg/dL (0-0.2) H 03/16/19 17:05 0.3 mg/dL 03/16/19 17:05 AST 381 units/L (5-40) H 03/20/19 09:30 ALT 116 units/L (7-56) H 03/20/19 09:30 255 units/L (35-129) H 03/20/19 09:30 86125 units/L (55-170) H 03/20/19 09:30 CK-MB (CK-2) 54.3 ng/mL (0.0-4.0) H 03/17/19 07:16 CK-MB (CK-2) Rel Index 0.0 (0-4) 03/17/19 07:16 0.058 ng/mL (0.00-0.029) H 03/17/19 07:16 13.30 mg/dL (0.00-1.30) H 03/20/19 14:45 5.1 g/dL (6.3-8.2) L 03/20/19 09:30 2.3 g/dL (3.9-5) L 03/20/19 09:30 0.8 % 03/20/19 09:30 Triglycerides 395 mg/dL (2-149) H 03/16/19 22:32 Cholesterol 88 mg/dL (50-199) 03/16/19 22:32 10 mg/dL (50-130) L 03/16/19 22:32 7 mg/dL (40-59) L 03/16/19 22:32 12.57 % 03/16/19 22:32 TSH 2.200 mlU/mL (0.270-4.200) 03/16/19 17:05 Free T4 0.72 ng/dL (0.76-1.46) L 03/16/19 17:05 Kathy (Yellow) 03/17/19 16:05 Cloudy (Clear) 03/17/19 16:05 5.0 (5.0-7.0) 03/17/19 16:05 Ur Specific [place] 1.014 (1.003-1.030) 03/17/19 16:05 >500 mg/dL (Negative) 03/17/19 16:05 50 mg/dL (Negative) 03/17/19 16:05 Tr mg/dL (Negative) 03/17/19 16:05 Lg (Negative) 03/17/19 16:05 Neg (Negative) 03/17/19 16:05 Neg (Negative) 03/17/19 16:05 < 2.0 mg/dL (<2.0) 03/17/19 16:05 Ur Leukocyte Esterase Mod (Negative) 03/17/19 16:05 30.0 /HPF (0.0-6.0) H 03/17/19 16:05 11.0 /HPF (0.0-6.0) 03/17/19 16:05 U Epithel Cells (Auto) < 1.0 /HPF (0-13.0) 03/17/19 16:05 Few /HPF 03/17/19 16:05 2+ /HPF (PYRIDINE OPERATOR) 03/17/19 16:05 None seen (None Seen) 03/17/19 16:05 106.6 mg/dL (0.1-20.0) H 03/17/19 16:05 95 mmol/L 03/17/19 16:05 Vancomycin Trough 11.5 ug/mL (5.0-20.0) 03/18/19 13:19 Salicylates < 0.3 mg/dL (2.8-20.0) L 03/16/19 17:05 Presumptive negative 03/17/19 16:05 Presumptive negative 03/17/19 16:05 Acetaminophen < 5.0 ug/mL (10.0-30.0) L 03/16/19 17:05 Ur Barbiturates Screen Presumptive negative 03/17/19 16:05 Ur Phencyclidine Scrn Presumptive negative 03/17/19 16:05 Ur Amphetamines Screen Presumptive negative 03/17/19 16:05 U Benzodiazepines Scrn Presumptive positive 03/17/19 16:05 Presumptive negative 03/17/19 16:05 U Marijuana (THC) Screen Presumptive negative 03/17/19 16:05 Disclamer 03/17/19 16:05 Plasma/Serum Alcohol < 0.01 % (0-0.07) 03/16/19 17:05 Hepatitis A IgM Ab Non-reactive (NonReactive) 03/18/19 13:18 Hep Bs Antigen Non-reactive (Negative) 03/18/19 13:18 Hep B Core IgM Ab Non-reactive (NonReactive) 09/22/19 13:18 Non-reactive (NonReactive) 03/18/19 13:18 HIV 1&2 Antibody Rapid Non react (Non React) 03/17/19 11:52 Non react (Non React) 03/17/19 11:52 Influenza A (Rapid) Negative (Negative) 03/17/19 17:00 Influenza B (Rapid) Negative (Negative) 03/17/19 17:00 Group A Strep Rapid Negative (Negative) 03/17/19 17:00 Active Medications - Current Medications Current Medications: Generic Name Dose Route Start Last Admin Trade Name Freq PRN Reason Stop Dose Admin Acetaminophen 650 mg 03/16/19 22:22 03/17/19 18:[address] 650 mg Q4H PRN Administration Fever >101 Albuterol/Ipratropium 1 ampul 03/19/19 20:00 03/20/19 16:09 Duoneb *Not For Prn Use* IH 1 ampul Q4HRT PAOLO Administration Lipase/Protease/Amylase 1 each 03/17/19 14:45 Pancreaze 10,500 Unit FEEDTUBE PRN PRN For Clogged Feeding Tube Dextrose 50 gm 03/19/19 18:39 D50w (25gm) Vial IV PRN PRN Hypoglycemia Famotidine 20 mg 03/20/19 10:00 03/20/19 09:19 Pepcid IV 20 mg DAILY PAOLO Administration Fentanyl 50 mcg 03/16/19 16:06 03/16/19 17:02 Sublimaze IV 50 mcg Q10MIN PRN Administration ANALGESIA Fentanyl 25 mcg 03/19/19 18:33 03/20/19 02:53 Sublimaze IV 25 mcg Q2H PRN Administration Pain, Moderate (4-6) Hydrocortisone Sodium Succinate 100 mg 03/18/19 20:00 03/20/19 03:37 Solu-Cortef IV 100 mg Q8H PAOLO Administration Hydrophilic Ointment 1 applic 03/16/19 15:50 Vaseline Lip Therapy TP Q2HR PRN Dry Lips Midazolam HCl 100 mg/ Sodium 100 mls @ 2 mls/hr 03/16/19 16:00 03/19/19 18:45 Chloride IV 0 mg/hr TITR PAOLO 0 mls/hr Titration Protocol 2 MG/HR Fentanyl Citrate 2,000 mcg in 100 mls @ 6.804 mls/hr 03/16/19 17:00 03/20/19 15:10 Fentanyl Drip Premix IV 1 mcg/kg/hr TITR PAOLO 6.804 mls/hr Administration Protocol 1 MCG/KG/HR Vasopressin 20 unit/ Sodium 101 mls @ 9.09 mls/hr 03/16/19 23:45 03/20/19 14:45 Chloride IV 0.03 units/min TITR PAOLO 9.09 mls/hr Administration Protocol 0.03 UNITS/MIN Norepinephrine 8 mg/ Sodium 250 mls @ 3.75 mls/hr 03/17/19 02:00 03/20/19 15:37 Chloride IV 25 mcg/min TITR PAOLO 46.875 mls/hr Administration Protocol 2 MCG/MIN Phenylephrine HCl 100 mg/ 100 mls @ 3 mls/hr 03/17/19 02:30 03/19/19 18:48 Sodium Chloride IV Infused TITR PAOLO Titration Protocol 50 MCG/MIN Ceftriaxone Sodium 2 gm in 100 mls @ 200 mls/hr 03/17/19 12:00 03/20/19 10:46 Rocephin/Ns 2 Gm/100 Ml IV 200 mls/hr Q12HR PAOLO Administration Protocol Doxycycline Hyclate 100 mg/ 250 mls @ 250 mls/hr 03/17/19 12:00 03/20/19 10:47 Sodium Chloride IV 250 mls/hr Q12HR PAOLO Administration Protocol Dopamine HCl/Dextrose 800 mg in 250 mls @ 5.103 mls/hr 03/17/19 23:00 03/20/19 12:54 Intropin Drip 800 Mg/D5w 250 Ml IV 0 mcg/kg/min TITR PAOLO 0 mls/hr Titration Protocol 2 MCG/KG/MIN Amiodarone HCl 900 mg/ 500 mls @ 33.333 mls/hr 03/18/19 17:00 03/20/19 04:43 Dextrose IV 1 mg/min DIRECT PAOLO 33.333 mls/hr Administration Protocol 1 MG/MIN Dextrose 1,000 mls @ 50 mls/hr 03/19/19 19:00 03/19/19 19:02 D5w IV 50 mls/hr DIRECT PAOLO Administration Sodium Chloride 100 mls @ 999 mls/hr 03/20/19 11:00 Nacl 0.9% IV NEYMAR PRN Hypotension Midazolam HCl 2 mg 03/16/19 15:50 03/20/19 14:23 Versed IV 2 mg Q10MIN PRN Administration Sedation Midodrine 10 mg 03/18/19 20:00 03/20/19 13:30 Proamatine PO Not Given Q8H [facility] Multi-Ingred Cream/Lotion/Oil/Oint 1 applic 03/16/19 15:50 03/19/19 20:10 Artificial Tears Ophth Oint OU 1 applic Q4HR PRN Administration Dry Eye(s) Ondansetron HCl 4 mg 03/16/19 22:21 Zofran IV Q8H PRN Nausea And Vomiting Simple Syrup 15 ml 03/17/19 14:45 Simple Syrup FEEDTUBE PRN PRN Hypoglycemia Simple Syrup 30 ml 03/17/19 14:45 Simple Syrup FEEDTUBE PRN PRN Hypoglycemia Sodium Bicarbonate 325 mg 03/17/19 14:45 Sodium Bicarbonate FEEDTUBE PRN PRN For Clogged Feeding Tube Nutrition/Malnutrition Assess - Dietary Evaluation Nutrition/Malnutrition Findings: Nutrition Notes Start: 03/17/19 14:22 Freq: Status: Active Protocol: Document 03/20/19 11:02 LM (Rec: 03/20/19 11:23 LM [id number]) Nutrition Notes Initial or Follow up Reassessment Current Diagnosis Acute Kidney Injury Other Pertinent Diagnosis Septic shock,Multiple organ failure, encephalopathy, rhabdomyolysis Current Diet no diet ordered Labs/Tests Na 131 BUN 68 Cr 6.1 BG 164 Pertinent Medications Norepinephrine, Vasopressin, Phenylephrine, Dopamine Height 6 ft Weight 152.4 kg [place] Body Weight (kg) 80.90 BMI 45.6 Subjective/Other Information Pt still on multiple pressors. TF still on hold. Burn Absent Trauma Absent Minimum of two criteria No #1 Nutrition Diagnosis Inadequate oral intake Diagnosis Progress(for reassessment Continues documentation) Is patient on ventilator? Yes Is Patient Ambulatory and/or Out of Bed No REE-([facility]-confined to bed) 2938.896 Kcal/Kg value to use for calculation 16 Approximate Energy Requirements Using 2438 kcal/Kg Calculation Used for Recommendations Kcal/kg Additional Notes Protein Needs: 202g (2.5g/kg IBW 80.9) Fluid Needs: 1 ml/kcal Nutrition Intervention Change Diet Order: Recommend TF when medically feasible Nutrition Support: Vital 1.2 at 85 ml/hr Decrease flush to 100 ml q4hr for hyponatremia Kcal 2,448 Protein (gm) 153 Fluid (mL) 1,654 Goal #1 Start TF when medically feasible Anticipated Discharge Needs: Unable to determine at this time Follow-Up By: 03/22/19 Additional Comments Follow for POC
[2019-03-21] MEDS: NORepinephrine 8 MG in SODIUM CHLORIDE 0.9% 250ML 242 ML IV SCH ×3 (00:57→14:32)
[2019-03-21] MEDS: IPRATROPIUM/ALBUTEROL SULFATE 3 ML AMPUL.NEB IH SCH ×7 (01:08→23:11)
[2019-03-21] MEDS: VASOPRESSIN 20 UNIT in SODIUM CHLORIDE 0.9% 100 ML IV SCH ×2 (01:53→13:04)
[2019-03-21] MEDS: fentaNYL DRIP Premix 2,000 MCG/100 ML BAG IV SCH ×2 (03:24→13:04)
[2019-03-21] MEDS: HYDROCORTISONE SOD SUCC 100 MG/2 ML VIAL IV SCH ×3 (03:24→21:00)
[2019-03-21] MEDS: MIDODRINE 5 MG TAB PO SCH ×3 (03:26→21:00)
--- NOTE | 2019-03-21 04:13 | XRay Report ---
CHEST 1 VIEW 03/21/2019 3:19 AM INDICATION / CLINICAL INFORMATION: follow up respiratory failure. COMPARISON: 03/20/2019. FINDINGS: SUPPORT DEVICES: Stable satisfactory device positioning. HEART / MEDIASTINUM: Stable. LUNGS / PLEURA: Stable mild interstitial edema. No pneumothorax. ADDITIONAL FINDINGS: No significant additional findings. IMPRESSION: 1. No adverse change from the prior exam. Signer Name: Stuart Pacheco MD Signed: 03/21/2019 4:09 AM Workstation Name: [employer] [id number]
[2019-03-21 05:39] LABS: Hemoglobin 12.4 gm/dl (11.8-15.2); Red Cell Distribution Width 15.4 % (13.2-15.2)
[2019-03-21 05:48] LABS: Mean Corpuscular HGB Conc 33 % (32-34); Mean Corpuscular Volume 85 fl (84-94); Monocytes # (Auto) 0.6 K/mm3 (0.0-0.8); Monocytes % (Auto) 1.6 % (0.0-7.3); Red Blood Count 4.49 M/mm3 (3.65-5.03)
[2019-03-21 05:55] LABS: Albumin 2.6 g/dL (3.9-5); Calcium 6.1 mg/dL (8.4-10.2)
[2019-03-21 09:19] LABS: Eosinophils % (Manual) 0 % (0.0-4.3); Total Cells Counted 100
[2019-03-21 09:20] LABS: Basophils % (Manual) 0 % (0.0-1.8)
[2019-03-21 09:21] LABS: Anisocytosis Few; Giant Platelets Rare; Large Platelets Few
[2019-03-21 09:22] LABS: Platelet Count 36 K/mm3 (140-440); Platelet Estimate Consistent w Auto
[2019-03-21] MEDS: AMIODARONE 900 MG in DEXTROSE 5% IN WATER 482 ML IV SCH (10:00)
[2019-03-21] MEDS ORDERED: VANCOMYCIN 2,000 MG in SODIUM CHLORIDE 0.9% 500 ML 500 ML IV ONE (10:00)
[2019-03-21] MEDS: FAMOTIDINE 20 MG/2 ML INJ IV SCH (10:00)
[2019-03-21] MEDS: cefTRIAXone/NS 2 GM/100 ML 2 GM/100 ML BAG IV SCH ×2 (10:01→22:33)
[2019-03-21] MEDS: DOXYCYCLINE HYCLATE 100 MG in SODIUM CHLORIDE 0.9% 250ML 250 ML IV SCH ×2 (10:02→22:33)
--- NOTE | 2019-03-21 10:16 | Progress Note ---
Assessment and Plan Cultures: 03/16/2019 sputum: salivary contamination 03/16/2019 Blood culture: no growth 03/17/2019 Urine culture no growth 03/17/2019 throat culture: no growth Assessment: 43/M with ?psych history: 1) Refractory septic shock: remains on multiple pressors, HD, intubated on the vent. Leukocytosis +, fever trending down. ?Infectious etiology. Possibility of Neuroleptic Malignant Syndrome given psych history, high fever of 105F and extremely elevated CPK of >100K. Unclear if he was on any psych med. From ID standpoint, continue broad coverage for acute bacterial meningitis, tick borne illness, aspiration pneumonia. Blood culture negative so far. UA with mild p yuria. HIV rapid negative. Strep A rapid ag negative. 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 He lives in a hotel in a [place] neighborhood in [place] and believes he has been intermittently homeless. He met his friend Gio, who brought him to [place]. Brother denies any history of drug abuse or alcohol abuse but reports history of mental disorder, he has never received treatment. His parent do not talk to him. He denies homosexual behavior but does not have clear why he is in so close contact with new friend Gio here in [place]. Brother does not know anything about his symptoms as he spoke with him last time 3 months ago. 2) Probable aspiration pneumonia 3) Acute respiratory failure: on the vent. 4) ?Right axillary edema: no abscess, US no collection seen 5) Acute encephalopathy: should r/o meningitis when able to. CT head showed diffuse cerebral edema ?artifact. But too unstable for LP at this time. 6) Multiorgan dysfunction syndrome 7) Acute renal failure: renally dosing all abx, now on HD 8) Elevated LFTs/shock liver: also likely elevated from Rhabdomyolysis. Viral hepatitis panel negative. 9) Thrombocytopenia 10) Rhabdomyolysis 11) ?Enteritis: per CT ? no collection no perforation no obvious ischemic bowel Recommendations: LP when feasible, currently unstable continue IV ceftriaxone 2 gm IV q 12 h continue IV doxycycline 100 mg IV q 12 h continue vancomycin IV renally adjusted tickborne serologies ordered prognosis guarded Will follow along. Katherine Elizabeth MD, FACP [facility] ([facility]) M: [phone] O: [phone] F: [phone] Subjective Date of service: 03/21/19 Principal diagnosis: Septic Shock; Ac. hypoxemic resp failure; Renzo. PNA; Rhabdomyolysis; RUBEN Interval history: Remains intubated, sedated, on the vent. Pressors slowly being weaned, down to 2 pressors. Discussed with RN. Objective - Exam Narrative Exam: Physical Exam: Constitutional: sedated, intubated Head, Ears, Nose: Normocephalic, atraumatic. External ears, nose normal Eyes: Conjunctivae/corneas clear. No icterus. No ptosis. Neck: Supple, no meningeal signs Oral: intubated Cardiovascular: S1, S2 normal. Respiratory: Good air entry, clear to auscultation bilaterally GI: Soft; bowel sounds hypoactive. No peritoneal signs Musculoskeletal: No pedal edema. Cyanotic tips of digits and toes, cool to touch Skin: No rash or abscess Hem/Lymphatic: No palpable cervical or supraclavicular nodes. No lymphangitis Psych: no agitation Neurological: sedated, intubated, on vent - Constitutional Vitals: Vital Signs Temp Pulse Resp BP Pulse Ox 98.6 F 67 14 123/76 97 03/21/19 07:57 03/21/19 08:15 03/21/19 08:15 03/21/19 08:15 03/21/19 08:15 Temperature -Last 24 Hours Temperature 98.6 F Temperature 99.8 F Temperature 100.0 F Temperature 100.1 F Temperature 98.7 F Temperature 99.9 F Temperature 99.0 F Temperature 98.9 F Temperature 98.8 F - Labs CBC & Chem 7: 03/21/19 04:26 03/21/19 04:26 Labs: Abnormal lab results 03/20/19 03/20/19 03/20/19 Range/Units 09:30 09:30 09:30 WBC (4.5-11.0) K/mm3 RDW (13.2-15.2) % Plt Count 29 L (140-440) K/mm3 Seg Neuts % (Manual) (40.0-70.0) % Lymphocytes % (Manual) (13.4-35.0) % Nucleated RBC % (0.0-0.9) % Seg Neutrophils # (1.8-7.7) K/mm3 Seg Neutrophils # Man (1.8-7.7) K/mm3 Lymphocytes # (Manual) (1.2-5.4) K/mm3 POC ABG pO2 (80-105) Sodium 131 L (137-145) mmol/L Chloride 92.3 L (98-107) mmol/L Carbon Dioxide 20 L (22-30) mmol/L BUN 68 H (9-20) mg/dL Creatinine 6.1 H (0.8-1.5) mg/dL Glucose 164 H (75-100) mg/dL POC Glucose (70-105) Lactic Acid (0.7-2.0) mmol/L Calcium 5.3 L* (8.4-10.2) mg/dL Total Bilirubin 9.50 H (0.1-1.2) mg/dL AST 381 H (5-40) units/L ALT 116 H (7-56) units/L Alkaline Phosphatase 255 H (35-129) units/L Total Creatine Kinase 76652 H (55-170) units/L C-Reactive Protein (0.00-1.30) mg/dL Total Protein 5.1 L (6.3-8.2) g/dL Albumin 2.3 L (3.9-5) g/dL 03/20/19 03/20/19 03/20/19 Range/Units 11:34 14:41 14:45 WBC (4.5-11.0) K/mm3 RDW (13.2-15.2) % Plt Count (140-440) K/mm3 Seg Neuts % (Manual) (40.0-70.0) % Lymphocytes % (Manual) (13.4-35.0) % Nucleated RBC % (0.0-0.9) % Seg Neutrophils # (1.8-7.7) K/mm3 Seg Neutrophils # Man (1.8-7.7) K/mm3 Lymphocytes # (Manual) (1.2-5.4) K/mm3 POC ABG pO2 (80-105) Sodium (137-145) mmol/L Chloride (98-107) mmol/L Carbon Dioxide (22-30) mmol/L BUN (9-20) mg/dL Creatinine (0.8-1.5) mg/dL Glucose (75-100) mg/dL POC Glucose 141 H (70-105) Lactic Acid 2.90 H* (0.7-2.0) mmol/L Calcium (8.4-10.2) mg/dL Total Bilirubin (0.1-1.2) mg/dL AST (5-40) units/L ALT (7-56) units/L Alkaline Phosphatase (35-129) units/L Total Creatine Kinase (55-170) units/L C-Reactive Protein 13.30 H (0.00-1.30) mg/dL Total Protein (6.3-8.2) g/dL Albumin (3.9-5) g/dL 03/20/19 03/20/19 03/21/19 Range/Units 18:50 21:55 04:26 WBC (4.5-11.0) K/mm3 RDW (13.2-15.2) % Plt Count (140-440) K/mm3 Seg Neuts % (Manual) (40.0-70.0) % Lymphocytes % (Manual) (13.4-35.0) % Nucleated RBC % (0.0-0.9) % Seg Neutrophils # (1.8-7.7) K/mm3 Seg Neutrophils # Man (1.8-7.7) K/mm3 Lymphocytes # (Manual) (1.2-5.4) K/mm3 POC ABG pO2 (80-105) Sodium 131 L (137-145) mmol/L Chloride 90.7 L (98-107) mmol/L Carbon Dioxide 21 L (22-30) mmol/L BUN 69 H (9-20) mg/dL Creatinine 5.7 H (0.8-1.5) mg/dL Glucose 170 H (75-100) mg/dL POC Glucose 117 H 128 H (70-105) Lactic Acid (0.7-2.0) mmol/L Calcium 6.1 L D (8.4-10.2) mg/dL Total Bilirubin 9.50 H (0.1-1.2) mg/dL AST 308 H (5-40) units/L ALT 124 H (7-56) units/L Alkaline Phosphatase 327 H (35-129) units/L Total Creatine Kinase 60540 H (55-170) units/L C-Reactive Protein (0.00-1.30) mg/dL Total Protein 5.7 L (6.3-8.2) g/dL Albumin 2.6 L (3.9-5) g/dL 03/21/19 03/21/19 03/21/19 Range/Units 04:26 05:17 08:29 WBC 37.8 H (4.5-11.0) K/mm3 RDW 15.4 H (13.2-15.2) % Plt Count 36 L (140-440) K/mm3 Seg Neuts % (Manual) 93.0 H (40.0-70.0) % Lymphocytes % (Manual) 3.0 L (13.4-35.0) % Nucleated RBC % 1.0 H (0.0-0.9) % Seg Neutrophils # 34.6 H (1.8-7.7) K/mm3 Seg Neutrophils # Man 35.2 H (1.8-7.7) K/mm3 Lymphocytes # (Manual) 1.1 L (1.2-5.4) K/mm3 POC ABG pO2 209 H (80-105) Sodium (137-145) mmol/L Chloride (98-107) mmol/L Carbon Dioxide (22-30) mmol/L BUN (9-20) mg/dL Creatinine (0.8-1.5) mg/dL Glucose (75-100) mg/dL POC Glucose (70-105) Lactic Acid (0.7-2.0) mmol/L Calcium (8.4-10.2) mg/dL Total Bilirubin (0.1-1.2) mg/dL AST (5-40) units/L ALT (7-56) units/L Alkaline Phosphatase (35-129) units/L Total Creatine Kinase 80299 H (55-170) units/L C-Reactive Protein (0.00-1.30) mg/dL Total Protein (6.3-8.2) g/dL Albumin (3.9-5) g/dL 03/21/19 Range/Units 08:29 WBC (4.5-11.0) K/mm3 RDW (13.2-15.2) % Plt Count (140-440) K/mm3 Seg Neuts % (Manual) (40.0-70.0) % Lymphocytes % (Manual) (13.4-35.0) % Nucleated RBC % (0.0-0.9) % Seg Neutrophils # (1.8-7.7) K/mm3 Seg Neutrophils # Man (1.8-7.7) K/mm3 Lymphocytes # (Manual) (1.2-5.4) K/mm3 POC ABG pO2 (80-105) Sodium (137-145) mmol/L Chloride (98-107) mmol/L Carbon Dioxide (22-30) mmol/L BUN (9-20) mg/dL Creatinine (0.8-1.5) mg/dL Glucose (75-100) mg/dL POC Glucose (70-105) Lactic Acid 2.60 H* (0.7-2.0) mmol/L Calcium (8.4-10.2) mg/dL Total Bilirubin (0.1-1.2) mg/dL AST (5-40) units/L ALT (7-56) units/L Alkaline Phosphatase (35-129) units/L Total Creatine Kinase (55-170) units/L C-Reactive Protein (0.00-1.30) mg/dL Total Protein (6.3-8.2) g/dL Albumin (3.9-5) g/dL - Imaging and cardiology Chest x-ray: report reviewed, image reviewed (stable, no interval change)
--- NOTE | 2019-03-21 11:19 | Progress Note ---
Assessment and Plan Continue supportive measures. He continues to require multiple vasopressors. Can consider ischemic evaluation if/when medically stabilized. Overall guarded prognosis. The patient has been seen in conjunction with Dr. Echavarria who agrees with the assessment and plan of care. - Patient Problems (1) Cardiopulmonary arrest Current Visit: Yes Status: Acute (2) Acute respiratory failure Current Visit: Yes Status: Acute (3) SVT (supraventricular tachycardia) Current Visit: Yes Status: Resolved (4) Torsades de pointes Current Visit: Yes Status: Acute (5) Ventricular tachycardia Current Visit: Yes Status: Acute (6) Altered mental status Current Visit: Yes Status: Acute (7) Septic shock Current Visit: Yes Status: Acute (8) Aspiration pneumonia Current Visit: Yes Status: Acute (9) Acute renal failure Current Visit: Yes Status: Acute (10) Elevated LFTs Current Visit: Yes Status: Acute (11) Thrombocytopenia Current Visit: Yes Status: Acute (12) Enteritis Current Visit: Yes Status: Suspected (13) Atrial fibrillation with RVR Current Visit: Yes Status: Acute Subjective Date of service: 03/21/19 Principal diagnosis: Septic Shock; Ac. hypoxemic resp failure; Renzo. PNA; Rhabdomyolysis; RUBEN Interval history: pt remains intubated, moving arms and legs, no purposeful response noted, requiring multiple vasopressors, on amio gtt. in SR on tele, in SR. no family at bedside. Objective Last Vital Signs Temp 98.6 F 03/21/19 07:57 Pulse 68 03/21/19 09:31 Resp 14 03/21/19 08:15 BP 107/76 03/21/19 09:31 Pulse Ox 98 03/21/19 09:31 - Physical Examination General: Other (intubated) HEENT: Positive: PERRL Neck: Positive: neck supple Cardiac: Positive: Reg Rate and Rhythm, S1/S2 Lungs: Positive: Decreased Breath Sounds Neuro: Positive: Other (intubated) Abdomen: Positive: Unremarkable /Rectal: Other (deferred) Skin: Positive: Clear Musculoskeletal: Decreased Range of Motion Extremities: Present: lower extr. pulses (weak, thready ) - Labs and Meds Cardiac Enzymes 03/21/19 Range/Units 04:26 AST 308 H (5-40) units/L CBC 03/20/19 03/21/19 Range/Units 09:30 04:26 WBC 37.8 H (4.5-11.0) K/mm3 RBC 4.49 (3.65-5.03) M/mm3 Hgb 12.4 (11.8-15.2) gm/dl Hct 38.0 (35.5-45.6) % Plt Count 29 L 36 L (140-440) K/mm3 Treasure # 0.6 (0.0-0.8) K/mm3 Comprehensive Metabolic Panel 03/21/19 Range/Units 04:26 Sodium 131 L (137-145) mmol/L Potassium 4.9 (3.6-5.0) mmol/L Chloride 90.7 L (98-107) mmol/L Carbon Dioxide 21 L (22-30) mmol/L BUN 69 H (9-20) mg/dL Creatinine 5.7 H (0.8-1.5) mg/dL Glucose 170 H (75-100) mg/dL Calcium 6.1 L D (8.4-10.2) mg/dL AST 308 H (5-40) units/L ALT 124 H (7-56) units/L Alkaline Phosphatase 327 H (35-129) units/L Total Protein 5.7 L (6.3-8.2) g/dL Albumin 2.6 L (3.9-5) g/dL - Imaging and Cardiology Echo: report reviewed ( EF 40-45%, impaired relaxation. ) - Allied health notes Allied health notes reviewed: nursing
--- NOTE | 2019-03-21 11:46 | Progress Note ---
Assessment and Plan Severe sepsis with shock. Right axilla abscess versus localized pannus/fatty collection. Acute hypoxemic respiratory failure, on mechanical ventilator support. Likely aspiration pneumonia, bilateral. Morbid obesity. Rhabdomyolysis. Acute kidney injury. Leukocytosis. Morbid obesity. Metabolic acidosis. Lactic acidosis. Hypomagnesemia. Elevated serum transaminases/possible shock liver. Acute encephalopathy, toxic metabolic versus anoxic - transitioned to PRVC/AC, rate 20, TV 500, peep 18 and 40% FiO2 - reduce Peep by 2 cm H2O every 4 hours till down to 8 cm H2O as long as O2 sat's > 90% - continue to wean vasopressors for target MAP > 65 mmHg (remains on levophed, vasopressin) - advance tube feeds to goal as tolerated - discontinue D5W drip - pull femoral A-line today - discontinued Femoral CVL yesterday - continue APRV mode while keeping close eye on ventilation (Ph 40, Plow 5, Th 4.0s, Tlow 0.8s) - continue HD/UF per nephrology prescription - VAP bundle addressed - continue to wean FiO2 for sats > 90% - continue daily SAT's and SBT assessment as tolerated - target sedation for RASS 0 to -1 - prn analgesia per CPOT score - continue HD/UF per nephrology prescription and for toxin and volume control - prn supportive blood transfusions to keep serum Hb > 7.0 - Monitor hemodynamics closely - Transfuse PRBC's to keep HgB > 7g/dL - continue enteral nutrition as tolerated (NPO for now; trickle feeding and advance once more stable) - continue empiric broad spectrum antiinfective's per ID recommendations (de- escalate based on clinical and microbiologic data) - continue mobility protocols and off loading as tolerated for pressure ulcer prophylaxis - continue to avoid nephrotoxins, adjust all medications for GFR and CRCL - continue GI & VTE prophylaxis with - accuchecks with glycemic control per SSI for target BG of 140-180 mg/dl acutely - continue other care per attending / other consultants ... attempted to reach his brother on the phone unsuccessfully to update him ... re-evaluate in am & prn CONDITION: CRITICAL PROGNOSIS: VERY GUARDED CODE STATUS: FULL CODE Discussed extensively with RT/RN and care team in ICU IDT rounds The high probability of a clinically significant, sudden or life threatening deterioration of the [respiratory, renal and Cardiac] system's' required my full and direct attention, intervention and personal management. The aggregate critical care time was 32 minutes. This time is in addition to time spent perfo rming reported procedures but includes the following: [x] Data Review and interpretation [x] Patient assessment and monitoring of vital signs [x] Documentation [x] Medication orders and management Subjective Date of service: 03/21/19 Principal diagnosis: Septic Shock; Ac. hypoxemic resp failure; Renzo. PNA; Rhabdo myolysis; RUBEN Interval history: Patient is seen today for: Severe sepsis with shock; Acute hypoxemic respiratory failure; Aspiration pneumonia; Morbid obesity; Rhabdomyolysis; Acute kidney injury; Morbid obesity; Elevated serum transaminases/possible shock liver; Acute encephalopathy (Toxic/Met) Seen and examined at bedside; 24hour events reviewed; nursing and respiratory care staff consulted; no adverse overnight events reported to me; resting peacefully in bed; FiO2 down to 35%; not following commands but moving all extremities; still anuric; afebrile; remains on vasopressin but down to 14 mics/min; remains on amiodarone drip Objective Vital Signs - 12hr 03/21/19 03/21/19 03/21/19 00:00 00:15 00:30 Temperature Pulse Rate 67 67 70 Pulse Rate [ Anterior Bilateral Throughout] Pulse Rate [ 67 From Monitor] Respiratory 15 15 Rate Respiratory Rate [Anterior Bilateral Throughout] Blood Pressure 149/90 149/90 149/90 O2 Sat by Pulse 94 96 92 Oximetry 03/21/19 03/21/19 03/21/19 00:46 01:00 01:02 Temperature Pulse Rate 67 67 66 Pulse Rate [ Anterior Bilateral Throughout] Pulse Rate [ From Monitor] Respiratory 14 15 Rate Respiratory Rate [Anterior Bilateral Throughout] Blood Pressure 149/90 113/71 136/89 O2 Sat by Pulse 95 94 95 Oximetry 03/21/19 03/21/19 03/21/19 01:08 01:16 01:30 Temperature Pulse Rate 66 65 Pulse Rate [ 68 Anterior Bilateral Throughout] Pulse Rate [ From Monitor] Respiratory 15 14 Rate Respiratory 22 Rate [Anterior Bilateral Throughout] Blood Pressure 136/89 136/89 O2 Sat by Pulse 96 96 Oximetry 03/21/19 03/21/19 03/21/19 01:45 02:00 02:15 Temperature Pulse Rate 64 64 63 Pulse Rate [ Anterior Bilateral Throughout] Pulse Rate [ From Monitor] Respiratory 15 15 14 Rate Respiratory Rate [Anterior Bilateral Throughout] Blood Pressure 131/91 138/91 138/91 O2 Sat by Pulse 95 94 93 Oximetry 03/21/19 03/21/19 03/21/19 02:30 02:45 03:00 Temperature Pulse Rate 63 62 62 Pulse Rate [ Anterior Bilateral Throughout] Pulse Rate [ From Monitor] Respiratory 14 14 15 Rate Respiratory Rate [Anterior Bilateral Throughout] Blood Pressure 140/92 140/92 137/91 O2 Sat by Pulse 93 93 94 Oximetry 03/21/19 03/21/19 03/21/19 03:15 03:30 03:45 Temperature Pulse Rate 62 62 62 Pulse Rate [ Anterior Bilateral Throughout] Pulse Rate [ From Monitor] Respiratory 15 14 15 Rate Respiratory Rate [Anterior Bilateral Throughout] Blood Pressure 137/91 131/89 131/89 O2 Sat by Pulse 94 93 94 Oximetry 03/21/19 03/21/19 03/21/19 04:00 04:15 04:30 Temperature 99.8 F H Pulse Rate 62 62 62 Pulse Rate [ Anterior Bilateral Throughout] Pulse Rate [ 62 From Monitor] Respiratory 15 15 15 Rate Respiratory Rate [Anterior Bilateral Throughout] Blood Pressure 131/89 131/88 131/83 O2 Sat by Pulse 95 95 97 Oximetry 03/21/19 03/21/19 03/21/19 04:45 04:56 05:00 Temperature Pulse Rate 63 63 63 Pulse Rate [ Anterior Bilateral Throughout] Pulse Rate [ From Monitor] Respiratory 15 15 Rate Respiratory Rate [Anterior Bilateral Throughout] Blood Pressure 131/83 131/83 122/82 O2 Sat by Pulse 96 97 97 Oximetry 03/21/19 03/21/19 03/21/19 05:15 05:30 05:45 Temperature Pulse Rate 64 66 66 Pulse Rate [ 66 Anterior Bilateral Throughout] Pulse Rate [ From Monitor] Respiratory 15 15 14 Rate Respiratory 22 Rate [Anterior Bilateral Throughout] Blood Pressure 122/82 109/79 109/79 O2 Sat by Pulse 98 98 98 Oximetry 03/21/19 03/21/19 03/21/19 06:00 06:15 06:30 Temperature Pulse Rate 66 66 66 Pulse Rate [ Anterior Bilateral Throughout] Pulse Rate [ From Monitor] Respiratory 15 15 15 Rate Respiratory Rate [Anterior Bilateral Throughout] Blood Pressure 109/79 109/79 122/74 O2 Sat by Pulse 99 98 98 Oximetry 03/21/19 03/21/1919 06:45 07:00 07:15 Temperature Pulse Rate 66 66 66 Pulse Rate [ Anterior Bilateral Throughout] Pulse Rate [ From Monitor] Respiratory 11 L 15 15 Rate Respiratory Rate [Anterior Bilateral Throughout] Blood Pressure 122/74 120/76 120/76 O2 Sat by Pulse 98 98 99 Oximetry 03/21/19 03/21/19 03/21/19 07:30 07:45 07:57 Temperature 98.6 F Pulse Rate 66 66 Pulse Rate [ Anterior Bilateral Throughout] Pulse Rate [ From Monitor] Respiratory 15 14 Rate Respiratory Rate [Anterior Bilateral Throughout] Blood Pressure 120/75 120/75 O2 Sat by Pulse 97 97 Oximetry 03/21/19 03/21/19 03/21/19 08:00 08:15 09:31 Temperature Pulse Rate 67 67 68 Pulse Rate [ Anterior Bilateral Throughout] Pulse Rate [ 67 From Monitor] Respiratory 15 14 Rate Respiratory Rate [Anterior Bilateral Throughout] Blood Pressure 123/76 123/76 107/76 O2 Sat by Pulse 97 97 98 Oximetry Constitutional: other (middle aged morbidly obese CM, normocephalic with incresed respiratory effort on MVS) Eyes: icteric ENT: oropharynx moist, other (ETT 23-24 cm PEDRO) Neck: supple, no lymphadenopathy, no JVD, other (large neck circumference) Effort: mildly labored Ascultation: Bilateral: diminished breath sounds, rales Percussion: Bilateral: not dull Cardiovascular: regular rate and rhythm Gastrointestinal: hypoactive bowel sounds, soft, non-tender, non-distended Integumentary: normal Extremities: no cyanosis, pink and warm, pulses normal, no ischemia or petechiae, edema Neurologic: non-focal exam (grossly), pupils equal and round, CN II-XII normal, motor strength normal and Psychiatric: other (inable to assess) CBC and BMP: 03/21/19 04:26 03/21/19 04:26 ABG, PT/INR, D-dimer: ABG POC ABG pH 7.352 (7.35-7.45) 03/21/19 05:17 ABG pH 7.265 pH Units (7.350-7.450) L 03/19/19 05:35 POC ABG pCO2 35.9 (35-45) 03/21/19 05:17 ABG pCO2 45.5 mm Hg 03/19/19 05:35 POC ABG pO2 209 (80-105) H 03/21/19 05:17 ABG pO2 35.4 mm Hg (80.0-90.0) L* 03/19/19 05:35 POC ABG HCO3 19.9 (22-26 mml/L) 03/21/19 05:17 POC ABG Total CO2 21 (23-27mmol/L) 03/21/19 05:17 POC ABG O2 Sat 100 03/21/19 05:17 ABG O2 Saturation 54.4 % (95.0-99.0) L 03/19/19 05:35 PT/INR, D-dimer PT 15.9 Sec. (12.2-14.9) H 03/16/19 17:05 INR 1.30 (0.87-1.13) H 03/16/19 17:05 Abnormal lab findings: Abnormal Labs 03/16/19 03/16/19 03/16/19 15:32 16:03 16:05 WBC 27.0 H RBC 5.55 H Hgb 15.7 H Hct 47.1 H RDW Plt Count 75 L Seg Neuts % (Manual) 85.0 H Lymphocytes % (Manual) 2.0 L Monocytes % (Manual) Nucleated RBC % Seg Neutrophils # Seg Neutrophils # Man 23.0 H Lymphocytes # (Manual) 0.5 L Monocytes # (Manual) PT INR POC ABG pH ABG pH POC ABG pCO2 POC ABG pO2 ABG pO2 ABG O2 Saturation ABG Base Excess ABG Hemoglobin Oxyhemoglobin Sodium 127 L Potassium Chloride 87.8 L Carbon Dioxide 17 L BUN 49 H Creatinine 5.8 H Glucose 150 H POC Glucose 118 H Lactic Acid Calcium 6.6 L Phosphorus Magnesium 1.10 L Total Bilirubin Direct Bilirubin AST ALT Alkaline Phosphatase Total Creatine Kinase 17507 H CK-MB (CK-2) Troponin T C-Reactive Protein Total Protein Albumin Triglycerides LDL Cholesterol Direct HDL Cholesterol Free T4 Urine WBC (Auto) Urine Creatinine Salicylates Acetaminophen 03/16/19 03/16/19 03/16/19 16:59 17:05 17:05 WBC RBC Hgb Hct RDW Plt Count Seg Neuts % (Manual) Lymphocytes % (Manual) Monocytes % (Manual) Nucleated RBC % Seg Neutrophils # Seg Neutrophils # Man Lymphocytes # (Manual) Monocytes # (Manual) PT INR POC ABG pH 7.297 L ABG pH POC ABG pCO2 33.0 L POC ABG pO2 ABG pO2 ABG O2 Saturation ABG Base Excess ABG Hemoglobin Oxyhemoglobin Sodium Potassium Chloride Carbon Dioxide BUN Creatinine Glucose POC Glucose Lactic Acid Calcium Phosphorus Magnesium Total Bilirubin Direct Bilirubin AST ALT Alkaline Phosphatase Total Creatine Kinase 54530 H CK-MB (CK-2) 83.1 H Troponin T C-Reactive Protein Total Protein Albumin Triglycerides LDL Cholesterol Direct HDL Cholesterol Free T4 0.72 L Urine WBC (Auto) Urine Creatinine Salicylates Acetaminophen 03/16/19 03/16/19 03/16/19 17:05 17:05 17:05 WBC RBC Hgb Hct RDW Plt Count Seg Neuts % (Manual) Lymphocytes % (Manual) Monocytes % (Manual) Nucleated RBC % Seg Neutrophils # Seg Neutrophils # Man Lymphocytes # (Manual) Monocytes # (Manual) PT INR POC ABG pH ABG pH POC ABG pCO2 POC ABG pO2 ABG pO2 ABG O2 Saturation ABG Base Excess ABG Hemoglobin Oxyhemoglobin Sodium Potassium Chloride Carbon Dioxide BUN Creatinine Glucose POC Glucose Lactic Acid 5.10 H* Calcium Phosphorus Magnesium Total Bilirubin Direct Bilirubin AST ALT Alkaline Phosphatase Total Creatine Kinase CK-MB (CK-2) Troponin T C-Reactive Protein Total Protein Albumin Triglycerides LDL Cholesterol Direct HDL Cholesterol Free T4 Urine WBC (Auto) Urine Creatinine Salicylates < 0.3 L Acetaminophen < 5.0 L 03/16/19 03/16/19 03/16/19 17:05 17:05 20:35 WBC RBC Hgb Hct RDW Plt Count Seg Neuts % (Manual) Lymphocytes % (Manual) Monocytes % (Manual) Nucleated RBC % Seg Neutrophils # Seg Neutrophils # Man Lymphocytes # (Manual) Monocytes # (Manual) PT 15.9 H INR 1.30 H POC ABG pH ABG pH POC ABG pCO2 POC ABG pO2 ABG pO2 ABG O2 Saturation ABG Base Excess ABG Hemoglobin Oxyhemoglobin Sodium Potassium Chloride Carbon Dioxide BUN Creatinine Glucose POC Glucose Lactic Acid 3.30 H* Calcium Phosphorus Magnesium Total Bilirubin 6.20 H Direct Bilirubin 5.9 H AST 800 H ALT 120 H Alkaline Phosphatase Total Creatine Kinase CK-MB (CK-2) Troponin T C-Reactive Protein Total Protein 4.4 L Albumin 2.4 L Triglycerides LDL Cholesterol Direct HDL Cholesterol Free T4 Urine WBC (Auto) Urine Creatinine Salicylates Acetaminophen 0903/16/19 03/16/19 21:45 22:32 Unknown WBC RBC Hgb Hct RDW Plt Count Seg Neuts % (Manual) Lymphocytes % (Manual) Monocytes % (Manual) Nucleated RBC % Seg Neutrophils # Seg Neutrophils # Man Lymphocytes # (Manual) Monocytes # (Manual) PT INR POC ABG pH ABG pH POC ABG pCO2 POC ABG pO2 ABG pO2 ABG O2 Saturation ABG Base Excess ABG Hemoglobin Oxyhemoglobin Sodium Potassium Chloride Carbon Dioxide BUN Creatinine Glucose POC Glucose Lactic Acid 3.30 H* 3.00 H* Calcium Phosphorus Magnesium Total Bilirubin Direct Bilirubin AST ALT Alkaline Phosphatase Total Creatine Kinase CK-MB (CK-2) Troponin T 0.047 H D C-Reactive Protein Total Protein Albumin Triglycerides 395 H LDL Cholesterol Direct 10 L HDL Cholesterol 7 L Free T4 Urine WBC (Auto) Urine Creatinine Salicylates Acetaminophen 03/17/19 03/17/19 03/17/19 03:45 03:45 03:45 WBC RBC Hgb Hct RDW Plt Count Seg Neuts % (Manual) Lymphocytes % (Manual) Monocytes % (Manual) Nucleated RBC % Seg Neutrophils # Seg Neutrophils # Man Lymphocytes # (Manual) Monocytes # (Manual) PT INR POC ABG pH ABG pH POC ABG pCO2 POC ABG pO2 ABG pO2 ABG O2 Saturation ABG Base Excess ABG Hemoglobin Oxyhemoglobin Sodium 131 L Potassium Chloride 88.9 L Carbon Dioxide BUN 53 H Creatinine 7.1 H Glucose POC Glucose Lactic Acid 4.10 H* Calcium 5.4 L* D Phosphorus 7.30 H Magnesium 1.60 L Total Bilirubin 5.90 H Direct Bilirubin AST 801 H ALT 109 H Alkaline Phosphatase Total Creatine Kinase 97983 H 14978 H CK-MB (CK-2) 41.5 H Troponin T 0.054 H C-Reactive Protein Total Protein 4.5 L Albumin 2.0 L Triglycerides LDL Cholesterol Direct HDL Cholesterol Free T4 Urine WBC (Auto) Urine Creatinine Salicylates Acetaminophen 03/17/19 03/17/19 03/17/19 05:47 07:16 07:16 WBC RBC Hgb Hct RDW Plt Count Seg Neuts % (Manual) Lymphocytes % (Manual) Monocytes % (Manual) Nucleated RBC % Seg Neutrophils # Seg Neutrophils # Man Lymphocytes # (Manual) Monocytes # (Manual) PT INR POC ABG pH 7.193 L ABG pH POC ABG pCO2 45.2 H POC ABG pO2 65 L ABG pO2 ABG O2 Saturation ABG Base Excess ABG Hemoglobin Oxyhemoglobin Sodium Potassium Chloride Carbon Dioxide BUN Creatinine Glucose POC Glucose Lactic Acid 5.50 H* Calcium Phosphorus Magnesium Total Bilirubin Direct Bilirubin AST ALT Alkaline Phosphatase Total Creatine Kinase 29207 H CK-MB (CK-2) 54.3 H Troponin T 0.058 H C-Reactive Protein Total Protein Albumin Triglycerides LDL Cholesterol Direct HDL Cholesterol Free T4 Urine WBC (Auto) Urine Creatinine Salicylates Acetaminophen 03/17/19 03/17/19 03/17/19 11:52 12:51 13:01 WBC RBC Hgb Hct RDW Plt Count Seg Neuts % (Manual) Lymphocytes % (Manual) Monocytes % (Manual) Nucleated RBC % Seg Neutrophils # Seg Neutrophils # Man Lymphocytes # (Manual) Monocytes # (Manual) PT INR POC ABG pH 7.154 L ABG pH POC ABG pCO2 34.3 L POC ABG pO2 73 L ABG pO2 ABG O2 Saturation ABG Base Excess ABG Hemoglobin Oxyhemoglobin Sodium Potassium Chloride Carbon Dioxide BUN Creatinine Glucose POC Glucose 60 L Lactic Acid 8.20 H* Calcium Phosphorus Magnesium Total Bilirubin Direct Bilirubin AST ALT Alkaline Phosphatase Total Creatine Kinase CK-MB (CK-2) Troponin T C-Reactive Protein Total Protein Albumin Triglycerides LDL Cholesterol Direct HDL Cholesterol Free T4 Urine WBC (Auto) Urine Creatinine Salicylates Acetaminophen 03/17/19 03/17/19 03/17/19 14:37 14:37 14:37 WBC 29.3 H RBC Hgb Hct RDW 15.8 H Plt Count 45 L Seg Neuts % (Manual) 81.0 H Lymphocytes % (Manual) 1.0 L Monocytes % (Manual) 15.0 H Nucleated RBC % Seg Neutrophils # Seg Neutrophils # Man 23.7 H Lymphocytes # (Manual) 0.3 L Monocytes # (Manual) 4.4 H PT INR POC ABG pH ABG pH POC ABG pCO2 POC ABG pO2 ABG pO2 ABG O2 Saturation ABG Base Excess ABG Hemoglobin Oxyhemoglobin Sodium Potassium Chloride Carbon Dioxide BUN Creatinine Glucose POC Glucose Lactic Acid 4.90 H* Calcium Phosphorus Magnesium Total Bilirubin Direct Bilirubin AST ALT Alkaline Phosphatase Total Creatine Kinase CK-MB (CK-2) Troponin T C-Reactive Protein 24.90 H Total Protein Albumin Triglycerides LDL Cholesterol Direct HDL Cholesterol Free T4 Urine WBC (Auto) Urine Creatinine Salicylates Acetaminophen 03/17/19 03/17/19 03/17/19 16:05 16:05 17:02 WBC RBC Hgb Hct RDW Plt Count Seg Neuts % (Manual) Lymphocytes % (Manual) Monocytes % (Manual) Nucleated RBC % Seg Neutrophils # Seg Neutrophils # Man Lymphocytes # (Manual) Monocytes # (Manual) PT INR POC ABG pH 7.183 L ABG pH POC ABG pCO2 POC ABG pO2 65 L ABG pO2 ABG O2 Saturation ABG Base Excess ABG Hemoglobin Oxyhemoglobin Sodium Potassium Chloride Carbon Dioxide BUN Creatinine Glucose POC Glucose Lactic Acid Calcium Phosphorus Magnesium Total Bilirubin Direct Bilirubin AST ALT Alkaline Phosphatase Total Creatine Kinase CK-MB (CK-2) Troponin T C-Reactive Protein Total Protein Albumin Triglycerides LDL Cholesterol Direct HDL Cholesterol Free T4 Urine WBC (Auto) 30.0 H Urine Creatinine 106.6 H Salicylates Acetaminophen 03/18/19 03/18/19 03/18/19 05:12 05:16 05:53 WBC RBC Hgb Hct RDW Plt Count Seg Neuts % (Manual) Lymphocytes % (Manual) Monocytes % (Manual) Nucleated RBC % Seg Neutrophils # Seg Neutrophils # Man Lymphocytes # (Manual) Monocytes # (Manual) PT INR POC ABG pH 7.257 L ABG pH POC ABG pCO2 31.6 L POC ABG pO2 69 L ABG pO2 ABG O2 Saturation ABG Base Excess ABG Hemoglobin Oxyhemoglobin Sodium Potassium Chloride Carbon Dioxide BUN Creatinine Glucose POC Glucose 141 H Lactic Acid 5.00 H* Calcium Phosphorus Magnesium Total Bilirubin Direct Bilirubin AST ALT Alkaline Phosphatase Total Creatine Kinase CK-MB (CK-2) Troponin T C-Reactive Protein Total Protein Albumin Triglycerides LDL Cholesterol Direct HDL Cholesterol Free T4 Urine WBC (Auto) Urine Creatinine Salicylates Acetaminophen 03/18/19 03/18/19 03/18/19 06:57 08:40 08:40 WBC 31.7 H RBC Hgb Hct RDW 15.5 H Plt Count 35 L Seg Neuts % (Manual) Lymphocytes % (Manual) Monocytes % (Manual) Nucleated RBC % Seg Neutrophils # Seg Neutrophils # Man Lymphocytes # (Manual) Monocytes # (Manual) PT INR POC ABG pH ABG pH POC ABG pCO2 POC ABG pO2 ABG pO2 ABG O2 Saturation ABG Base Excess ABG Hemoglobin Oxyhemoglobin Sodium 132 L Potassium 5.5 H D Chloride 88.5 L Carbon Dioxide 18 L BUN 71 H Creatinine 8.1 H Glucose 205 H POC Glucose Lactic Acid 5.00 H* Calcium 4.1 L* D Phosphorus Magnesium 2.40 H Total Bilirubin 7.50 H Direct Bilirubin AST 1088 H ALT 159 H Alkaline Phosphatase 190 H Total Creatine Kinase 909008 H CK-MB (CK-2) Troponin T C-Reactive Protein Total Protein 4.7 L Albumin 1.8 L Triglycerides LDL Cholesterol Direct HDL Cholesterol Free T4 Urine WBC (Auto) Urine Creatinine Salicylates Acetaminophen 03/18/19 03/18/19 03/18/19 12:33 12:50 13:19 WBC RBC Hgb Hct RDW Plt Count Seg Neuts % (Manual) Lymphocytes % (Manual) Monocytes % (Manual) Nucleated RBC % Seg Neutrophils # Seg Neutrophils # Man Lymphocytes # (Manual) Monocytes # (Manual) PT INR POC ABG pH 7.282 L ABG pH POC ABG pCO2 POC ABG pO2 67 L ABG pO2 ABG O2 Saturation ABG Base Excess ABG Hemoglobin Oxyhemoglobin Sodium Potassium Chloride Carbon Dioxide BUN Creatinine Glucose POC Glucose 129 H Lactic Acid 3.30 H* Calcium Phosphorus Magnesium Total Bilirubin Direct Bilirubin AST ALT Alkaline Phosphatase Total Creatine Kinase CK-MB (CK-2) Troponin T C-Reactive Protein Total Protein Albumin Triglycerides LDL Cholesterol Direct HDL Cholesterol Free T4 Urine WBC (Auto) Urine Creatinine Salicylates Acetaminophen 03/18/19 03/18/19 03/18/19 13:19 16:50 18:11 WBC RBC Hgb Hct RDW Plt Count Seg Neuts % (Manual) Lymphocytes % (Manual) Monocytes % (Manual) Nucleated RBC % Seg Neutrophils # Seg Neutrophils # Man Lymphocytes # (Manual) Monocytes # (Manual) PT INR POC ABG pH ABG pH POC ABG pCO2 POC ABG pO2 59 L ABG pO2 ABG O2 Saturation ABG Base Excess ABG Hemoglobin Oxyhemoglobin Sodium Potassium Chloride Carbon Dioxide BUN Creatinine Glucose POC Glucose 151 H Lactic Acid Calcium 4.2 L* Phosphorus Magnesium Total Bilirubin Direct Bilirubin AST ALT Alkaline Phosphatase Total Creatine Kinase 534957 H CK-MB (CK-2) Troponin T C-Reactive Protein Total Protein Albumin Triglycerides LDL Cholesterol Direct HDL Cholesterol Free T4 Urine WBC (Auto) Urine Creatinine Salicylates Acetaminophen 03/18/19 03/18/19 03/19/19 18:20 23:39 01:42 WBC RBC Hgb Hct RDW Plt Count Seg Neuts % (Manual) Lymphocytes % (Manual) Monocytes % (Manual) Nucleated RBC % Seg Neutrophils # Seg Neutrophils # Man Lymphocytes # (Manual) Monocytes # (Manual) PT INR POC ABG pH 7.345 L ABG pH 7.285 L POC ABG pCO2 POC ABG pO2 59 L ABG pO2 44.0 L ABG O2 Saturation 70.9 L ABG Base Excess -5.7 L ABG Hemoglobin 11.9 L Oxyhemoglobin 69.6 L Sodium Potassium Chloride Carbon Dioxide BUN Creatinine Glucose POC Glucose 152 H Lactic Acid Calcium Phosphorus Magnesium Total Bilirubin Direct Bilirubin AST ALT Alkaline Phosphatase Total Creatine Kinase CK-MB (CK-2) Troponin T C-Reactive Protein Total Protein Albumin Triglycerides LDL Cholesterol Direct HDL Cholesterol Free T4 Urine WBC (Auto) Urine Creatinine Salicylates Acetaminophen 03/19/19 03/19/19 03/19/19 04:00 04:00 05:35 WBC 36.5 H RBC Hgb Hct RDW 15.8 H Plt Count 35 L Seg Neuts % (Manual) Lymphocytes % (Manual) Monocytes % (Manual) Nucleated RBC % Seg Neutrophils # Seg Neutrophils # Man Lymphocytes # (Manual) Monocytes # (Manual) PT INR POC ABG pH ABG pH 7.265 L POC ABG pCO2 POC ABG pO2 ABG pO2 35.4 L* ABG O2 Saturation 54.4 L ABG Base Excess -6.7 L ABG Hemoglobin 12.9 L Oxyhemoglobin 53.4 L Sodium 132 L Potassium 5.7 H Chloride 89.8 L Carbon Dioxide 19 L BUN 62 H Creatinine 6.4 H Glucose 151 H POC Glucose Lactic Acid Calcium 5.2 L* D Phosphorus Magnesium Total Bilirubin 7.80 H Direct Bilirubin AST 682 H ALT 130 H Alkaline Phosphatase 167 H Total Creatine Kinase CK-MB (CK-2) Troponin T C-Reactive Protein Total Protein 4.8 L Albumin 2.3 L Triglycerides LDL Cholesterol Direct HDL Cholesterol Free T4 Urine WBC (Auto) Urine Creatinine Salicylates Acetaminophen 03/19/19 03/19/19 03/19/19 05:49 09:16 09:50 WBC RBC Hgb Hct RDW Plt Count Seg Neuts % (Manual) Lymphocytes % (Manual) Monocytes % (Manual) Nucleated RBC % Seg Neutrophils # Seg Neutrophils # Man Lymphocytes # (Manual) Monocytes # (Manual) PT INR POC ABG pH 7.222 L ABG pH POC ABG pCO2 56.6 H POC ABG pO2 ABG pO2 ABG O2 Saturation ABG Base Excess ABG Hemoglobin Oxyhemoglobin Sodium Potassium Chloride Carbon Dioxide BUN Creatinine Glucose POC Glucose 154 H Lactic Acid 2.70 H* Calcium Phosphorus Magnesium Total Bilirubin Direct Bilirubin AST ALT Alkaline Phosphatase Total Creatine Kinase CK-MB (CK-2) Troponin T C-Reactive Protein Total Protein Albumin Triglycerides LDL Cholesterol Direct HDL Cholesterol Free T4 Urine WBC (Auto) Urine Creatinine Salicylates Acetaminophen 03/19/19 03/19/19 03/19/19 09:50 11:28 17:58 WBC RBC Hgb Hct RDW Plt Count Seg Neuts % (Manual) Lymphocytes % (Manual) Monocytes % (Manual) Nucleated RBC % Seg Neutrophils # Seg Neutrophils # Man Lymphocytes # (Manual) Monocytes # (Manual) PT INR POC ABG pH 7.250 L ABG pH POC ABG pCO2 52.6 H POC ABG pO2 ABG pO2 ABG O2 Saturation ABG Base Excess ABG Hemoglobin Oxyhemoglobin Sodium Potassium Chloride Carbon Dioxide BUN Creatinine Glucose POC Glucose 160 H Lactic Acid Calcium Phosphorus Magnesium Total Bilirubin Direct Bilirubin AST ALT Alkaline Phosphatase Total Creatine Kinase 32049 H CK-MB (CK-2) Troponin T C-Reactive Protein Total Protein Albumin Triglycerides LDL Cholesterol Direct HDL Cholesterol Free T4 Urine WBC (Auto) Urine Creatinine Salicylates Acetaminophen 03/19/19 03/19/19 03/20/19 19:48 21:03 02:16 WBC RBC Hgb Hct RDW Plt Count Seg Neuts % (Manual) Lymphocytes % (Manual) Monocytes % (Manual) Nucleated RBC % Seg Neutrophils # Seg Neutrophils # Man Lymphocytes # (Manual) Monocytes # (Manual) PT INR POC ABG pH 7.279 L ABG pH POC ABG pCO2 50.3 H POC ABG pO2 129 H ABG pO2 ABG O2 Saturation ABG Base Excess ABG Hemoglobin Oxyhemoglobin Sodium Potassium Chloride Carbon Dioxide BUN Creatinine Glucose POC Glucose 119 H 119 H Lactic Acid Calcium Phosphorus Magnesium Total Bilirubin Direct Bilirubin AST ALT Alkaline Phosphatase Total Creatine Kinase CK-MB (CK-2) Troponin T C-Reactive Protein Total Protein Albumin Triglycerides LDL Cholesterol Direct HDL Cholesterol Free T4 Urine WBC (Auto) Urine Creatinine Salicylates Acetaminophen 03/20/19 03/20/19 03/20/19 04:23 05:05 09:30 WBC 36.3 H RBC Hgb Hct RDW 15.5 H Plt Count 29 L Seg Neuts % (Manual) Lymphocytes % (Manual) Monocytes % (Manual) Nucleated RBC % Seg Neutrophils # Seg Neutrophils # Man Lymphocytes # (Manual) Monocytes # (Manual) PT INR POC ABG pH ABG pH POC ABG pCO2 POC ABG pO2 280 H ABG pO2 ABG O2 Saturation ABG Base Excess ABG Hemoglobin Oxyhemoglobin Sodium Potassium Chloride Carbon Dioxide BUN Creatinine Glucose POC Glucose 115 H Lactic Acid Calcium Phosphorus Magnesium Total Bilirubin Direct Bilirubin AST ALT Alkaline Phosphatase Total Creatine Kinase CK-MB (CK-2) Troponin T C-Reactive Protein Total Protein Albumin Triglycerides LDL Cholesterol Direct HDL Cholesterol Free T4 Urine WBC (Auto) Urine Creatinine Salicylates Acetaminophen 03/20/19 03/20/19 03/20/19 09:30 09:30 11:34 WBC RBC Hgb Hct RDW Plt Count Seg Neuts % (Manual) Lymphocytes % (Manual) Monocytes % (Manual) Nucleated RBC % Seg Neutrophils # Seg Neutrophils # Man Lymphocytes # (Manual) Monocytes # (Manual) PT INR POC ABG pH ABG pH POC ABG pCO2 POC ABG pO2 ABG pO2 ABG O2 Saturation ABG Base Excess ABG Hemoglobin Oxyhemoglobin Sodium 131 L Potassium Chloride 92.3 L Carbon Dioxide 20 L BUN 68 H Creatinine 6.1 H Glucose 164 H POC Glucose 141 H Lactic Acid Calcium 5.3 L* Phosphorus Magnesium Total Bilirubin 9.50 H Direct Bilirubin AST 381 H ALT 116 H Alkaline Phosphatase 255 H Total Creatine Kinase 19697 H CK-MB (CK-2) Troponin T C-Reactive Protein Total Protein 5.1 L Albumin 2.3 L Triglycerides LDL Cholesterol Direct HDL Cholesterol Free T4 Urine WBC (Auto) Urine Creatinine Salicylates Acetaminophen 03/20/19 03/20/19 03/20/19 14:41 14:45 18:50 WBC RBC Hgb Hct RDW Plt Count Seg Neuts % (Manual) Lymphocytes % (Manual) Monocytes % (Manual) Nucleated RBC % Seg Neutrophils # Seg Neutrophils # Man Lymphocytes # (Manual) Monocytes # (Manual) PT INR POC ABG pH ABG pH POC ABG pCO2 POC ABG pO2 ABG pO2 ABG O2 Saturation ABG Base Excess ABG Hemoglobin Oxyhemoglobin Sodium Potassium Chloride Carbon Dioxide BUN Creatinine Glucose POC Glucose 117 H Lactic Acid 2.90 H* Calcium Phosphorus Magnesium Total Bilirubin Direct Bilirubin AST ALT Alkaline Phosphatase Total Creatine Kinase CK-MB (CK-2) Troponin T C-Reactive Protein 13.30 H Total Protein Albumin Triglycerides LDL Cholesterol Direct HDL Cholesterol Free T4 Urine WBC (Auto) Urine Creatinine Salicylates Acetaminophen 03/20/19 03/21/19 03/21/19 21:55 04:26 04:26 WBC 37.8 H RBC Hgb Hct RDW 15.4 H Plt Count 36 L Seg Neuts % (Manual) 93.0 H Lymphocytes % (Manual) 3.0 L Monocytes % (Manual) Nucleated RBC % 1.0 H Seg Neutrophils # 34.6 H Seg Neutrophils # Man 35.2 H Lymphocytes # (Manual) 1.1 L Monocytes # (Manual) PT INR POC ABG pH ABG pH POC ABG pCO2 POC ABG pO2 ABG pO2 ABG O2 Saturation ABG Base Excess ABG Hemoglobin Oxyhemoglobin Sodium 131 L Potassium Chloride 90.7 L Carbon Dioxide 21 L BUN 69 H Creatinine 5.7 H Glucose 170 H POC Glucose 128 H Lactic Acid Calcium 6.1 L D Phosphorus Magnesium Total Bilirubin 9.50 H Direct Bilirubin AST 308 H ALT 124 H Alkaline Phosphatase 327 H Total Creatine Kinase 70589 H CK-MB (CK-2) Troponin T C-Reactive Protein Total Protein 5.7 L Albumin 2.6 L Triglycerides LDL Cholesterol Direct HDL Cholesterol Free T4 Urine WBC (Auto) Urine Creatinine Salicylates Acetaminophen 03/21/19 03/21/19 03/21/19 05:17 08:29 08:29 WBC RBC Hgb Hct RDW Plt Count Seg Neuts % (Manual) Lymphocytes % (Manual) Monocytes % (Manual) Nucleated RBC % Seg Neutrophils # Seg Neutrophils # Man Lymphocytes # (Manual) Monocytes # (Manual) PT INR POC ABG pH ABG pH POC ABG pCO2 POC ABG pO2 209 H ABG pO2 ABG O2 Saturation ABG Base Excess ABG Hemoglobin Oxyhemoglobin Sodium Potassium Chloride Carbon Dioxide BUN Creatinine Glucose POC Glucose Lactic Acid 2.60 H* Calcium Phosphorus Magnesium Total Bilirubin Direct Bilirubin AST ALT Alkaline Phosphatase Total Creatine Kinase 96116 H CK-MB (CK-2) Troponin T C-Reactive Protein Total Protein Albumin Triglycerides LDL Cholesterol Direct HDL Cholesterol Free T4 Urine WBC (Auto) Urine Creatinine Salicylates Acetaminophen Chest x-ray: image reviewed (faint bilateral infiltrates; overall improved) Allied health notes reviewed: nursing
--- NOTE | 2019-03-21 12:08 | Progress Note ---
Assessment and Plan Patient is a 43 y/o man w/ a history of psychiatric illness (unknown which psychiatric diagnosis he has been given in the past), who presented on 03/16/19 with altered mental status. During the course of admission, patient was found to have sepsis with septic shock, rhabdomyolysis, RUBEN, and multiorgan failure. According to the patient's clinical findings, the patient likely has toxic metabolic encephalopathy. In support of this diagnosis, the multiple metabolic derangements including multiorgan failure, sepsis, septic shock requiring pressor support, RUBEN, rhabdomyolysis. Plan: 1. Metabolic encephalopathy: - Likely due to multiple underlying metabolic derangements, including multiorgan failure, sepsis, septic shock requiring pressor support, RUBEN, rhabdomyolysis. - Possible Meningo-encephalitis. Recommend LP, however platelets are currently low. Recommend for it to be done once platelets are at an acceptable level, and once patient is stable enough to tolerate. - Patient on antibiotics per ID. Recommend considering placing patient on acyclovir as well, if ok with ID team. - EEG showed generalized slowing, no seizures or epileptiform activity. - CT head showed diffuse cerebral edema. - Recommend for repeat cerebral imaging with either CT head or MRI brain once patient is stable enough. - Continue supportive care per ICU/primary/ID teams. - Discussed at length with patient's brother regarding EEG findings, altered mental status due to metabolic abnormalities and infection. - Will continue to monitor patient. Thank you for allowing me to take part in the care of this patient. Nahid Carroll MD Neurology Subjective Date of service: 03/21/19 Principal diagnosis: Septic Shock; Ac. hypoxemic resp failure; Renzo. PNA; Rhabdomyolysis; RUBEN Interval history: No acute events overnight. Objective - Exam Narrative Exam: Patient is intubated, sedated. Intermittently follows 1-step commands by squeezing hands and moving feet. PERRL, corneal reflexes diminished, cough weakly intact. Withdraws to pain stimulus in all extremities. Spontanenous movement noted in all extremities. 2+ reflexes throughout. - Vital Sign Vital Signs - 12hr 03/21/19 03/21/19 03/21/19 00:15 00:30 00:46 Temperature Pulse Rate 67 70 67 Pulse Rate [ Anterior Bilateral Throughout] Pulse Rate [ From Monitor] Respiratory 15 14 Rate Respiratory Rate [Anterior Bilateral Throughout] Blood Pressure 149/90 149/90 149/90 O2 Sat by Pulse 96 92 95 Oximetry 03/21/19 03/21/19 03/21/19 01:00 01:02 01:08 Temperature Pulse Rate 67 66 Pulse Rate [ 68 Anterior Bilateral Throughout] Pulse Rate [ From Monitor] Respiratory 15 Rate Respiratory 22 Rate [Anterior Bilateral Throughout] Blood Pressure 113/71 136/89 O2 Sat by Pulse 94 95 Oximetry 03/21/19 03/21/19 03/21/19 01:16 01:30 01:45 Temperature Pulse Rate 66 65 64 Pulse Rate [ Anterior Bilateral Throughout] Pulse Rate [ From Monitor] Respiratory 15 14 15 Rate Respiratory Rate [Anterior Bilateral Throughout] Blood Pressure 136/89 136/89 131/91 O2 Sat by Pulse 96 96 95 Oximetry 03/21/19 03/21/19 03/21/19 02:00 02:15 02:30 Temperature Pulse Rate 64 63 63 Pulse Rate [ Anterior Bilateral Throughout] Pulse Rate [ From Monitor] Respiratory 15 14 14 Rate Respiratory Rate [Anterior Bilateral Throughout] Blood Pressure 138/91 138/91 140/92 O2 Sat by Pulse 94 93 93 Oximetry 03/21/19 03/21/19 03/21/19 02:45 03:00 03:15 Temperature Pulse Rate 62 62 62 Pulse Rate [ Anterior Bilateral Throughout] Pulse Rate [ From Monitor] Respiratory 14 15 15 Rate Respiratory Rate [Anterior Bilateral Throughout] Blood Pressure 140/92 137/91 137/91 O2 Sat by Pulse 93 94 94 Oximetry 03/21/19 03/21/19 03/21/19 03:30 03:45 04:00 Temperature 99.8 F H Pulse Rate 62 62 62 Pulse Rate [ Anterior Bilateral Throughout] Pulse Rate [ 62 From Monitor] Respiratory 14 15 15 Rate Respiratory Rate [Anterior Bilateral Throughout] Blood Pressure 131/89 131/89 131/89 O2 Sat by Pulse 93 94 95 Oximetry 03/21/19 03/21/19 03/21/19 04:15 04:30 04:45 Temperature Pulse Rate 62 62 63 Pulse Rate [ Anterior Bilateral Throughout] Pulse Rate [ From Monitor] Respiratory 15 15 15 Rate Respiratory Rate [Anterior Bilateral Throughout] Blood Pressure 131/88 131/83 131/83 O2 Sat by Pulse 95 97 96 Oximetry 03/21/19 03/21/19 03/21/19 04:56 05:00 05:15 Temperature Pulse Rate 63 63 64 Pulse Rate [ 66 Anterior Bilateral Throughout] Pulse Rate [ From Monitor] Respiratory 15 15 Rate Respiratory 22 Rate [Anterior Bilateral Throughout] Blood Pressure 131/83 122/82 122/82 O2 Sat by Pulse 97 97 98 Oximetry 03/21/19 03/21/19 03/21/19 05:30 05:45 06:00 Temperature Pulse Rate 66 66 66 Pulse Rate [ Anterior Bilateral Throughout] Pulse Rate [ From Monitor] Respiratory 15 14 15 Rate Respiratory Rate [Anterior Bilateral Throughout] Blood Pressure 109/79 109/79 109/79 O2 Sat by Pulse 98 98 99 Oximetry 03/21/19 03/21/19 03/21/19 06:15 06:30 06:45 Temperature Pulse Rate 66 66 66 Pulse Rate [ Anterior Bilateral Throughout] Pulse Rate [ From Monitor] Respiratory 15 15 11 L Rate Respiratory Rate [Anterior Bilateral Throughout] Blood Pressure 109/79 122/74 122/74 O2 Sat by Pulse 98 98 98 Oximetry 03/21/19 03/21/19 03/21/19 07:00 07:15 07:30 Temperature Pulse Rate 66 66 66 Pulse Rate [ Anterior Bilateral Throughout] Pulse Rate [ From Monitor] Respiratory 15 15 15 Rate Respiratory Rate [Anterior Bilateral Throughout] Blood Pressure 120/76 120/76 120/75 O2 Sat by Pulse 98 99 97 Oximetry 03/21/19 03/21/19 03/21/19 07:45 07:57 08:00 Temperature 98.6 F Pulse Rate 66 67 Pulse Rate [ Anterior Bilateral Throughout] Pulse Rate [ 67 From Monitor] Respiratory 14 15 Rate Respiratory Rate [Anterior Bilateral Throughout] Blood Pressure 120/75 123/76 O2 Sat by Pulse 97 97 Oximetry 03/21/19 03/21/19 08:15 09:31 Temperature Pulse Rate 67 68 Pulse Rate [ Anterior Bilateral Throughout] Pulse Rate [ From Monitor] Respiratory 14 Rate Respiratory Rate [Anterior Bilateral Throughout] Blood Pressure 123/76 107/76 O2 Sat by Pulse 97 98 Oximetry - General Apperance Constitutional: acutely ill - EENT EENT: ATNC, PERRL, mucous membranes moist - Respiratory Respiratory: decreased breath sounds - Cardiovascular Cardiovascular: regular rate, normal S1, normal S2 Extremities: no clubbing, cyanosis, no inflammation - Gastrointestinal Gastrointestinal: normoactive bowel sounds, soft, non-tender - Integumentary Integumentary: normal - Laboratory Findings CBC and BMP: 03/21/19 04:26 03/21/19 04:26 Abnormal Lab Findings: Abnormal Labs 03/16/19 03/16/19 03/16/19 15:32 16:03 16:05 WBC 27.0 H RBC 5.55 H Hgb 15.7 H Hct 47.1 H RDW Plt Count 75 L Seg Neuts % (Manual) 85.0 H Lymphocytes % (Manual) 2.0 L Monocytes % (Manual) Nucleated RBC % Seg Neutrophils # Seg Neutrophils # Man 23.0 H Lymphocytes # (Manual) 0.5 L Monocytes # (Manual) PT INR POC ABG pH ABG pH POC ABG pCO2 POC ABG pO2 ABG pO2 ABG O2 Saturation ABG Base Excess ABG Hemoglobin Oxyhemoglobin Sodium 127 L Potassium Chloride 87.8 L Carbon Dioxide 17 L BUN 49 H Creatinine 5.8 H Glucose 150 H POC Glucose 118 H Lactic Acid Calcium 6.6 L Phosphorus Magnesium 1.10 L Total Bilirubin Direct Bilirubin AST ALT Alkaline Phosphatase Total Creatine Kinase 07863 H CK-MB (CK-2) Troponin T C-Reactive Protein Total Protein Albumin Triglycerides LDL Cholesterol Direct HDL Cholesterol Free T4 Urine WBC (Auto) Urine Creatinine Salicylates Acetaminophen 03/16/19 03/16/19 03/16/19 16:59 17:05 17:05 WBC RBC Hgb Hct RDW Plt Count Seg Neuts % (Manual) Lymphocytes % (Manual) Monocytes % (Manual) Nucleated RBC % Seg Neutrophils # Seg Neutrophils # Man Lymphocytes # (Manual) Monocytes # (Manual) PT INR POC ABG pH 7.297 L ABG pH POC ABG pCO2 33.0 L POC ABG pO2 ABG pO2 ABG O2 Saturation ABG Base Excess ABG Hemoglobin Oxyhemoglobin Sodium Potassium Chloride Carbon Dioxide BUN Creatinine Glucose POC Glucose Lactic Acid Calcium Phosphorus Magnesium Total Bilirubin Direct Bilirubin AST ALT Alkaline Phosphatase Total Creatine Kinase 31387 H CK-MB (CK-2) 83.1 H Troponin T C-Reactive Protein Total Protein Albumin Triglycerides LDL Cholesterol Direct HDL Cholesterol Free T4 0.72 L Urine WBC (Auto) Urine Creatinine Salicylates Acetaminophen 03/16/19 03/16/19 03/16/19 17:05 17:05 17:05 WBC RBC Hgb Hct RDW Plt Count Seg Neuts % (Manual) Lymphocytes % (Manual) Monocytes % (Manual) Nucleated RBC % Seg Neutrophils # Seg Neutrophils # Man Lymphocytes # (Manual) Monocytes # (Manual) PT INR POC ABG pH ABG pH POC ABG pCO2 POC ABG pO2 ABG pO2 ABG O2 Saturation ABG Base Excess ABG Hemoglobin Oxyhemoglobin Sodium Potassium Chloride Carbon Dioxide BUN Creatinine Glucose POC Glucose Lactic Acid 5.10 H* Calcium Phosphorus Magnesium Total Bilirubin Direct Bilirubin AST ALT Alkaline Phosphatase Total Creatine Kinase CK-MB (CK-2) Troponin T C-Reactive Protein Total Protein Albumin Triglycerides LDL Cholesterol Direct HDL Cholesterol Free T4 Urine WBC (Auto) Urine Creatinine Salicylates < 0.3 L Acetaminophen < 5.0 L 03/16/19 03/16/19 03/16/19 17:05 17:05 20:35 WBC RBC Hgb Hct RDW Plt Count Seg Neuts % (Manual) Lymphocytes % (Manual) Monocytes % (Manual) Nucleated RBC % Seg Neutrophils # Seg Neutrophils # Man Lymphocytes # (Manual) Monocytes # (Manual) PT 15.9 H INR 1.30 H POC ABG pH ABG pH POC ABG pCO2 POC ABG pO2 ABG pO2 ABG O2 Saturation ABG Base Excess ABG Hemoglobin Oxyhemoglobin Sodium Potassium Chloride Carbon Dioxide BUN Creatinine Glucose POC Glucose Lactic Acid 3.30 H* Calcium Phosphorus Magnesium Total Bilirubin 6.20 H Direct Bilirubin 5.9 H AST 800 H ALT 120 H Alkaline Phosphatase Total Creatine Kinase CK-MB (CK-2) Troponin T C-Reactive Protein Total Protein 4.4 L Albumin 2.4 L Triglycerides LDL Cholesterol Direct HDL Cholesterol Free T4 Urine WBC (Auto) Urine Creatinine Salicylates Acetaminophen 03/16/19 03/16/19 03/16/19 21:45 22:32 Unknown WBC RBC Hgb Hct RDW Plt Count Seg Neuts % (Manual) Lymphocytes % (Manual) Monocytes % (Manual) Nucleated RBC % Seg Neutrophils # Seg Neutrophils # Man Lymphocytes # (Manual) Monocytes # (Manual) PT INR POC ABG pH ABG pH POC ABG pCO2 POC ABG pO2 ABG pO2 ABG O2 Saturation ABG Base Excess ABG Hemoglobin Oxyhemoglobin Sodium Potassium Chloride Carbon Dioxide BUN Creatinine Glucose POC Glucose Lactic Acid 3.30 H* 3.00 H* Calcium Phosphorus Magnesium Total Bilirubin Direct Bilirubin AST ALT Alkaline Phosphatase Total Creatine Kinase CK-MB (CK-2) Troponin T 0.047 H D C-Reactive Protein Total Protein Albumin Triglycerides 395 H LDL Cholesterol Direct 10 L HDL Cholesterol 7 L Free T4 Urine WBC (Auto) Urine Creatinine Salicylates Acetaminophen 03/17/19 03/17/19 03/17/19 03:45 03:45 03:45 WBC RBC Hgb Hct RDW Plt Count Seg Neuts % (Manual) Lymphocytes % (Manual) Monocytes % (Manual) Nucleated RBC % Seg Neutrophils # Seg Neutrophils # Man Lymphocytes # (Manual) Monocytes # (Manual) PT INR POC ABG pH ABG pH POC ABG pCO2 POC ABG pO2 ABG pO2 ABG O2 Saturation ABG Base Excess ABG Hemoglobin Oxyhemoglobin Sodium 131 L Potassium Chloride 88.9 L Carbon Dioxide BUN 53 H Creatinine 7.1 H Glucose POC Glucose Lactic Acid 4.10 H* Calcium 5.4 L* D Phosphorus 7.30 H Magnesium 1.60 L Total Bilirubin 5.90 H Direct Bilirubin AST 801 H ALT 109 H Alkaline Phosphatase Total Creatine Kinase 33366 H 62896 H CK-MB (CK-2) 41.5 H Troponin T 0.054 H C-Reactive Protein Total Protein 4.5 L Albumin 2.0 L Triglycerides LDL Cholesterol Direct HDL Cholesterol Free T4 Urine WBC (Auto) Urine Creatinine Salicylates Acetaminophen 03/17/19 03/17/19 03/17/19 05:47 07:16 07:16 WBC RBC Hgb Hct RDW Plt Count Seg Neuts % (Manual) Lymphocytes % (Manual) Monocytes % (Manual) Nucleated RBC % Seg Neutrophils # Seg Neutrophils # Man Lymphocytes # (Manual) Monocytes # (Manual) PT INR POC ABG pH 7.193 L ABG pH POC ABG pCO2 45.2 H POC ABG pO2 65 L ABG pO2 ABG O2 Saturation ABG Base Excess ABG Hemoglobin Oxyhemoglobin Sodium Potassium Chloride Carbon Dioxide BUN Creatinine Glucose POC Glucose Lactic Acid 5.50 H* Calcium Phosphorus Magnesium Total Bilirubin Direct Bilirubin AST ALT Alkaline Phosphatase Total Creatine Kinase 48580 H CK-MB (CK-2) 54.3 H Troponin T 0.058 H C-Reactive Protein Total Protein Albumin Triglycerides LDL Cholesterol Direct HDL Cholesterol Free T4 Urine WBC (Auto) Urine Creatinine Salicylates Acetaminophen 03/17/19 03/17/19 03/17/19 11:52 12:51 13:01 WBC RBC Hgb Hct RDW Plt Count Seg Neuts % (Manual) Lymphocytes % (Manual) Monocytes % (Manual) Nucleated RBC % Seg Neutrophils # Seg Neutrophils # Man Lymphocytes # (Manual) Monocytes # (Manual) PT INR POC ABG pH 7.154 L ABG pH POC ABG pCO2 34.3 L POC ABG pO2 73 L ABG pO2 ABG O2 Saturation ABG Base Excess ABG Hemoglobin Oxyhemoglobin Sodium Potassium Chloride Carbon Dioxide BUN Creatinine Glucose POC Glucose 60 L Lactic Acid 8.20 H* Calcium Phosphorus Magnesium Total Bilirubin Direct Bilirubin AST ALT Alkaline Phosphatase Total Creatine Kinase CK-MB (CK-2) Troponin T C-Reactive Protein Total Protein Albumin Triglycerides LDL Cholesterol Direct HDL Cholesterol Free T4 Urine WBC (Auto) Urine Creatinine Salicylates Acetaminophen 03/17/19 03/17/19 03/17/19 14:37 14:37 14:37 WBC 29.3 H RBC Hgb Hct RDW 15.8 H Plt Count 45 L Seg Neuts % (Manual) 81.0 H Lymphocytes % (Manual) 1.0 L Monocytes % (Manual) 15.0 H Nucleated RBC % Seg Neutrophils # Seg Neutrophils # Man 23.7 H Lymphocytes # (Manual) 0.3 L Monocytes # (Manual) 4.4 H PT INR POC ABG pH ABG pH POC ABG pCO2 POC ABG pO2 ABG pO2 ABG O2 Saturation ABG Base Excess ABG Hemoglobin Oxyhemoglobin Sodium Potassium Chloride Carbon Dioxide BUN Creatinine Glucose POC Glucose Lactic Acid 4.90 H* Calcium Phosphorus Magnesium Total Bilirubin Direct Bilirubin AST ALT Alkaline Phosphatase Total Creatine Kinase CK-MB (CK-2) Troponin T C-Reactive Protein 24.90 H Total Protein Albumin Triglycerides LDL Cholesterol Direct HDL Cholesterol Free T4 Urine WBC (Auto) Urine Creatinine Salicylates Acetaminophen 03/17/19 03/17/19 03/17/19 16:05 16:05 17:02 WBC RBC Hgb Hct RDW Plt Count Seg Neuts % (Manual) Lymphocytes % (Manual) Monocytes % (Manual) Nucleated RBC % Seg Neutrophils # Seg Neutrophils # Man Lymphocytes # (Manual) Monocytes # (Manual) PT INR POC ABG pH 7.183 L ABG pH POC ABG pCO2 POC ABG pO2 65 L ABG pO2 ABG O2 Saturation ABG Base Excess ABG Hemoglobin Oxyhemoglobin Sodium Potassium Chloride Carbon Dioxide BUN Creatinine Glucose POC Glucose Lactic Acid Calcium Phosphorus Magnesium Total Bilirubin Direct Bilirubin AST ALT Alkaline Phosphatase Total Creatine Kinase CK-MB (CK-2) Troponin T C-Reactive Protein Total Protein Albumin Triglycerides LDL Cholesterol Direct HDL Cholesterol Free T4 Urine WBC (Auto) 30.0 H Urine Creatinine 106.6 H Salicylates Acetaminophen 03/18/19 03/18/19 03/18/19 05:12 05:16 05:53 WBC RBC Hgb Hct RDW Plt Count Seg Neuts % (Manual) Lymphocytes % (Manual) Monocytes % (Manual) Nucleated RBC % Seg Neutrophils # Seg Neutrophils # Man Lymphocytes # (Manual) Monocytes # (Manual) PT INR POC ABG pH 7.257 L ABG pH POC ABG pCO2 31.6 L POC ABG pO2 69 L ABG pO2 ABG O2 Saturation ABG Base Excess ABG Hemoglobin Oxyhemoglobin Sodium Potassium Chloride Carbon Dioxide BUN Creatinine Glucose POC Glucose 141 H Lactic Acid 5.00 H* Calcium Phosphorus Magnesium Total Bilirubin Direct Bilirubin AST ALT Alkaline Phosphatase Total Creatine Kinase CK-MB (CK-2) Troponin T C-Reactive Protein Total Protein Albumin Triglycerides LDL Cholesterol Direct HDL Cholesterol Free T4 Urine WBC (Auto) Urine Creatinine Salicylates Acetaminophen 03/18/19 03/18/19 03/18/19 06:57 08:40 08:40 WBC 31.7 H RBC Hgb Hct RDW 15.5 H Plt Count 35 L Seg Neuts % (Manual) Lymphocytes % (Manual) Monocytes % (Manual) Nucleated RBC % Seg Neutrophils # Seg Neutrophils # Man Lymphocytes # (Manual) Monocytes # (Manual) PT INR POC ABG pH ABG pH POC ABG pCO2 POC ABG pO2 ABG pO2 ABG O2 Saturation ABG Base Excess ABG Hemoglobin Oxyhemoglobin Sodium 132 L Potassium 5.5 H D Chloride 88.5 L Carbon Dioxide 18 L BUN 71 H Creatinine 8.1 H Glucose 205 H POC Glucose Lactic Acid 5.00 H* Calcium 4.1 L* D Phosphorus Magnesium 2.40 H Total Bilirubin 7.50 H Direct Bilirubin AST 1088 H ALT 159 H Alkaline Phosphatase 190 H Total Creatine Kinase 851846 H CK-MB (CK-2) Troponin T C-Reactive Protein Total Protein 4.7 L Albumin 1.8 L Triglycerides LDL Cholesterol Direct HDL Cholesterol Free T4 Urine WBC (Auto) Urine Creatinine Salicylates Acetaminophen 03/18/19 03/18/19 03/18/19 12:33 12:50 13:19 WBC RBC Hgb Hct RDW Plt Count Seg Neuts % (Manual) Lymphocytes % (Manual) Monocytes % (Manual) Nucleated RBC % Seg Neutrophils # Seg Neutrophils # Man Lymphocytes # (Manual) Monocytes # (Manual) PT INR POC ABG pH 7.282 L ABG pH POC ABG pCO2 POC ABG pO2 67 L ABG pO2 ABG O2 Saturation ABG Base Excess ABG Hemoglobin Oxyhemoglobin Sodium Potassium Chloride Carbon Dioxide BUN Creatinine Glucose POC Glucose 129 H Lactic Acid 3.30 H* Calcium Phosphorus Magnesium Total Bilirubin Direct Bilirubin AST ALT Alkaline Phosphatase Total Creatine Kinase CK-MB (CK-2) Troponin T C-Reactive Protein Total Protein Albumin Triglycerides LDL Cholesterol Direct HDL Cholesterol Free T4 Urine WBC (Auto) Urine Creatinine Salicylates Acetaminophen 03/18/19 03/18/19 03/18/19 13:19 16:50 18:11 WBC RBC Hgb Hct RDW Plt Count Seg Neuts % (Manual) Lymphocytes % (Manual) Monocytes % (Manual) Nucleated RBC % Seg Neutrophils # Seg Neutrophils # Man Lymphocytes # (Manual) Monocytes # (Manual) PT INR POC ABG pH ABG pH POC ABG pCO2 POC ABG pO2 59 L ABG pO2 ABG O2 Saturation ABG Base Excess ABG Hemoglobin Oxyhemoglobin Sodium Potassium Chloride Carbon Dioxide BUN Creatinine Glucose POC Glucose 151 H Lactic Acid Calcium 4.2 L* Phosphorus Magnesium Total Bilirubin Direct Bilirubin AST ALT Alkaline Phosphatase Total Creatine Kinase 348221 H CK-MB (CK-2) Troponin T C-Reactive Protein Total Protein Albumin Triglycerides LDL Cholesterol Direct HDL Cholesterol Free T4 Urine WBC (Auto) Urine Creatinine Salicylates Acetaminophen 03/18/19 03/18/19 03/19/19 18:20 23:39 01:42 WBC RBC Hgb Hct RDW Plt Count Seg Neuts % (Manual) Lymphocytes % (Manual) Monocytes % (Manual) Nucleated RBC % Seg Neutrophils # Seg Neutrophils # Man Lymphocytes # (Manual) Monocytes # (Manual) PT INR POC ABG pH 7.345 L ABG pH 7.285 L POC ABG pCO2 POC ABG pO2 59 L ABG pO2 44.0 L ABG O2 Saturation 70.9 L ABG Base Excess -5.7 L ABG Hemoglobin 11.9 L Oxyhemoglobin 69.6 L Sodium Potassium Chloride Carbon Dioxide BUN Creatinine Glucose POC Glucose 152 H Lactic Acid Calcium Phosphorus Magnesium Total Bilirubin Direct Bilirubin AST ALT Alkaline Phosphatase Total Creatine Kinase CK-MB (CK-2) Troponin T C-Reactive Protein Total Protein Albumin Triglycerides LDL Cholesterol Direct HDL Cholesterol Free T4 Urine WBC (Auto) Urine Creatinine Salicylates Acetaminophen 03/19/19 03/19/19 03/19/19 04:00 04:00 05:35 WBC 36.5 H RBC Hgb Hct RDW 15.8 H Plt Count 35 L Seg Neuts % (Manual) Lymphocytes % (Manual) Monocytes % (Manual) Nucleated RBC % Seg Neutrophils # Seg Neutrophils # Man Lymphocytes # (Manual) Monocytes # (Manual) PT INR POC ABG pH ABG pH 7.265 L POC ABG pCO2 POC ABG pO2 ABG pO2 35.4 L* ABG O2 Saturation 54.4 L ABG Base Excess -6.7 L ABG Hemoglobin 12.9 L Oxyhemoglobin 53.4 L Sodium 132 L Potassium 5.7 H Chloride 89.8 L Carbon Dioxide 19 L BUN 62 H Creatinine 6.4 H Glucose 151 H POC Glucose Lactic Acid Calcium 5.2 L* D Phosphorus Magnesium Total Bilirubin 7.80 H Direct Bilirubin AST 682 H ALT 130 H Alkaline Phosphatase 167 H Total Creatine Kinase CK-MB (CK-2) Troponin T C-Reactive Protein Total Protein 4.8 L Albumin 2.3 L Triglycerides LDL Cholesterol Direct HDL Cholesterol Free T4 Urine WBC (Auto) Urine Creatinine Salicylates Acetaminophen 03/19/19 03/19/19 03/19/19 05:49 09:16 09:50 WBC RBC Hgb Hct RDW Plt Count Seg Neuts % (Manual) Lymphocytes % (Manual) Monocytes % (Manual) Nucleated RBC % Seg Neutrophils # Seg Neutrophils # Man Lymphocytes # (Manual) Monocytes # (Manual) PT INR POC ABG pH 7.222 L ABG pH POC ABG pCO2 56.6 H POC ABG pO2 ABG pO2 ABG O2 Saturation ABG Base Excess ABG Hemoglobin Oxyhemoglobin Sodium Potassium Chloride Carbon Dioxide BUN Creatinine Glucose POC Glucose 154 H Lactic Acid 2.70 H* Calcium Phosphorus Magnesium Total Bilirubin Direct Bilirubin AST ALT Alkaline Phosphatase Total Creatine Kinase CK-MB (CK-2) Troponin T C-Reactive Protein Total Protein Albumin Triglycerides LDL Cholesterol Direct HDL Cholesterol Free T4 Urine WBC (Auto) Urine Creatinine Salicylates Acetaminophen 03/19/19 03/19/19 03/19/19 09:50 11:28 17:58 WBC RBC Hgb Hct RDW Plt Count Seg Neuts % (Manual) Lymphocytes % (Manual) Monocytes % (Manual) Nucleated RBC % Seg Neutrophils # Seg Neutrophils # Man Lymphocytes # (Manual) Monocytes # (Manual) PT INR POC ABG pH 7.250 L ABG pH POC ABG pCO2 52.6 H POC ABG pO2 ABG pO2 ABG O2 Saturation ABG Base Excess ABG Hemoglobin Oxyhemoglobin Sodium Potassium Chloride Carbon Dioxide BUN Creatinine Glucose POC Glucose 160 H Lactic Acid Calcium Phosphorus Magnesium Total Bilirubin Direct Bilirubin AST ALT Alkaline Phosphatase Total Creatine Kinase 57149 H CK-MB (CK-2) Troponin T C-Reactive Protein Total Protein Albumin Triglycerides LDL Cholesterol Direct HDL Cholesterol Free T4 Urine WBC (Auto) Urine Creatinine Salicylates Acetaminophen 03/19/19 03/19/19 03/20/19 19:48 21:03 02:16 WBC RBC Hgb Hct RDW Plt Count Seg Neuts % (Manual) Lymphocytes % (Manual) Monocytes % (Manual) Nucleated RBC % Seg Neutrophils # Seg Neutrophils # Man Lymphocytes # (Manual) Monocytes # (Manual) PT INR POC ABG pH 7.279 L ABG pH POC ABG pCO2 50.3 H POC ABG pO2 129 H ABG pO2 ABG O2 Saturation ABG Base Excess ABG Hemoglobin Oxyhemoglobin Sodium Potassium Chloride Carbon Dioxide BUN Creatinine Glucose POC Glucose 119 H 119 H Lactic Acid Calcium Phosphorus Magnesium Total Bilirubin Direct Bilirubin AST ALT Alkaline Phosphatase Total Creatine Kinase CK-MB (CK-2) Troponin T C-Reactive Protein Total Protein Albumin Triglycerides LDL Cholesterol Direct HDL Cholesterol Free T4 Urine WBC (Auto) Urine Creatinine Salicylates Acetaminophen 03/20/19 03/20/19 03/20/19 04:23 05:05 09:30 WBC 36.3 H RBC Hgb Hct RDW 15.5 H Plt Count 29 L Seg Neuts % (Manual) Lymphocytes % (Manual) Monocytes % (Manual) Nucleated RBC % Seg Neutrophils # Seg Neutrophils # Man Lymphocytes # (Manual) Monocytes # (Manual) PT INR POC ABG pH ABG pH POC ABG pCO2 POC ABG pO2 280 H ABG pO2 ABG O2 Saturation ABG Base Excess ABG Hemoglobin Oxyhemoglobin Sodium Potassium Chloride Carbon Dioxide BUN Creatinine Glucose POC Glucose 115 H Lactic Acid Calcium Phosphorus Magnesium Total Bilirubin Direct Bilirubin AST ALT Alkaline Phosphatase Total Creatine Kinase CK-MB (CK-2) Troponin T C-Reactive Protein Total Protein Albumin Triglycerides LDL Cholesterol Direct HDL Cholesterol Free T4 Urine WBC (Auto) Urine Creatinine Salicylates Acetaminophen 03/20/19 03/20/19 03/20/19 09:30 09:30 11:34 WBC RBC Hgb Hct RDW Plt Count Seg Neuts % (Manual) Lymphocytes % (Manual) Monocytes % (Manual) Nucleated RBC % Seg Neutrophils # Seg Neutrophils # Man Lymphocytes # (Manual) Monocytes # (Manual) PT INR POC ABG pH ABG pH POC ABG pCO2 POC ABG pO2 ABG pO2 ABG O2 Saturation ABG Base Excess ABG Hemoglobin Oxyhemoglobin Sodium 131 L Potassium Chloride 92.3 L Carbon Dioxide 20 L BUN 68 H Creatinine 6.1 H Glucose 164 H POC Glucose 141 H Lactic Acid Calcium 5.3 L* Phosphorus Magnesium Total Bilirubin 9.50 H Direct Bilirubin AST 381 H ALT 116 H Alkaline Phosphatase 255 H Total Creatine Kinase 85466 H CK-MB (CK-2) Troponin T C-Reactive Protein Total Protein 5.1 L Albumin 2.3 L Triglycerides LDL Cholesterol Direct HDL Cholesterol Free T4 Urine WBC (Auto) Urine Creatinine Salicylates Acetaminophen 03/20/19 03/20/19 03/20/19 14:41 14:45 18:50 WBC RBC Hgb Hct RDW Plt Count Seg Neuts % (Manual) Lymphocytes % (Manual) Monocytes % (Manual) Nucleated RBC % Seg Neutrophils # Seg Neutrophils # Man Lymphocytes # (Manual) Monocytes # (Manual) PT INR POC ABG pH ABG pH POC ABG pCO2 POC ABG pO2 ABG pO2 ABG O2 Saturation ABG Base Excess ABG Hemoglobin Oxyhemoglobin Sodium Potassium Chloride Carbon Dioxide BUN Creatinine Glucose POC Glucose 117 H Lactic Acid 2.90 H* Calcium Phosphorus Magnesium Total Bilirubin Direct Bilirubin AST ALT Alkaline Phosphatase Total Creatine Kinase CK-MB (CK-2) Troponin T C-Reactive Protein 13.30 H Total Protein Albumin Triglycerides LDL Cholesterol Direct HDL Cholesterol Free T4 Urine WBC (Auto) Urine Creatinine Salicylates Acetaminophen 03/20/19 03/21/19 03/21/19 21:55 04:26 04:26 WBC 37.8 H RBC Hgb Hct RDW 15.4 H Plt Count 36 L Seg Neuts % (Manual) 93.0 H Lymphocytes % (Manual) 3.0 L Monocytes % (Manual) Nucleated RBC % 1.0 H Seg Neutrophils # 34.6 H Seg Neutrophils # Man 35.2 H Lymphocytes # (Manual) 1.1 L Monocytes # (Manual) PT INR POC ABG pH ABG pH POC ABG pCO2 POC ABG pO2 ABG pO2 ABG O2 Saturation ABG Base Excess ABG Hemoglobin Oxyhemoglobin Sodium 131 L Potassium Chloride 90.7 L Carbon Dioxide 21 L BUN 69 H Creatinine 5.7 H Glucose 170 H POC Glucose 128 H Lactic Acid Calcium 6.1 L D Phosphorus Magnesium Total Bilirubin 9.50 H Direct Bilirubin AST 308 H ALT 124 H Alkaline Phosphatase 327 H Total Creatine Kinase 25158 H CK-MB (CK-2) Troponin T C-Reactive Protein Total Protein 5.7 L Albumin 2.6 L Triglycerides LDL Cholesterol Direct HDL Cholesterol Free T4 Urine WBC (Auto) Urine Creatinine Salicylates Acetaminophen 03/21/19 03/21/19 03/21/19 05:17 08:29 08:29 WBC RBC Hgb Hct RDW Plt Count Seg Neuts % (Manual) Lymphocytes % (Manual) Monocytes % (Manual) Nucleated RBC % Seg Neutrophils # Seg Neutrophils # Man Lymphocytes # (Manual) Monocytes # (Manual) PT INR POC ABG pH ABG pH POC ABG pCO2 POC ABG pO2 209 H ABG pO2 ABG O2 Saturation ABG Base Excess ABG Hemoglobin Oxyhemoglobin Sodium Potassium Chloride Carbon Dioxide BUN Creatinine Glucose POC Glucose Lactic Acid 2.60 H* Calcium Phosphorus Magnesium Total Bilirubin Direct Bilirubin AST ALT Alkaline Phosphatase Total Creatine Kinase 38941 H CK-MB (CK-2) Troponin T C-Reactive Protein Total Protein Albumin Triglycerides LDL Cholesterol Direct HDL Cholesterol Free T4 Urine WBC (Auto) Urine Creatinine Salicylates Acetaminophen 03/21/19 11:43 WBC RBC Hgb Hct RDW Plt Count Seg Neuts % (Manual) Lymphocytes % (Manual) Monocytes % (Manual) Nucleated RBC % Seg Neutrophils # Seg Neutrophils # Man Lymphocytes # (Manual) Monocytes # (Manual) PT INR POC ABG pH ABG pH POC ABG pCO2 POC ABG pO2 ABG pO2 ABG O2 Saturation ABG Base Excess ABG Hemoglobin Oxyhemoglobin Sodium Potassium Chloride Carbon Dioxide BUN Creatinine Glucose POC Glucose 123 H Lactic Acid Calcium Phosphorus Magnesium Total Bilirubin Direct Bilirubin AST ALT Alkaline Phosphatase Total Creatine Kinase CK-MB (CK-2) Troponin T C-Reactive Protein Total Protein Albumin Triglycerides LDL Cholesterol Direct HDL Cholesterol Free T4 Urine WBC (Auto) Urine Creatinine Salicylates Acetaminophen
--- NOTE | 2019-03-21 12:27 | Progress Note ---
Assessment and Plan 1. Acute kidney injury: Vasomotor RUBEN in the setting of shock / volume depletion / Rhabdo. Baseline renal function is unknown. Patient remain anuric. CT abdomen was negative for obstructive nephropathy. Monitor renal function. Renal prognosis is guarded. Avoid nephrotoxic agents. Meds dosage based on GFR. Patient was started on hemodialysis on 03/18/19 due to worsening metabolic acidosis and hyperkalemia. Hemodialysis: 03/18, 03/19, 03/20. 2. FEN: Hyperkalemia, improved. Hyponatremia, monitor. Metabolic acidosis, 2/2 Lactic acidosis. Volume overload, UF with HD as tolerated. Monitor lytes. 3. Septic shock: On broad spectrum Abx. Followed by ID. Currently on Midodrine and 2 different IV pressors. Follow cultures. 4. Rhabdomyolysis: Follow CK level. 5. SVT / V.tach: Followed by Cards. 6. Respiratory failure: On vent. 7. Multiple organ failure. 8. Elevated transaminases. 9. Encephalopathy: Followed by Neuro. Subjective Date of service: 03/21/19 Principal diagnosis: Septic Shock; Ac. hypoxemic resp failure; Renzo. PNA; Rhabdomyolysis; RUBEN Interval history: Patient was seen and examined at the bedside. Remain on the vent. Objective - Vital Signs Vital signs: Vital Signs - 12hr 03/21/19 03/21/19 03/21/19 00:30 00:46 01:00 Temperature Pulse Rate 70 67 67 Pulse Rate [ Anterior Bilateral Throughout] Pulse Rate [ From Monitor] Respiratory 14 15 Rate Respiratory Rate [Anterior Bilateral Throughout] Blood Pressure 149/90 149/90 113/71 O2 Sat by Pulse 92 95 94 Oximetry 03/21/19 03/21/19 03/21/19 01:02 01:08 01:16 Temperature Pulse Rate 66 66 Pulse Rate [ 68 Anterior Bilateral Throughout] Pulse Rate [ From Monitor] Respiratory 15 Rate Respiratory 22 Rate [Anterior Bilateral Throughout] Blood Pressure 136/89 136/89 O2 Sat by Pulse 95 96 Oximetry 03/21/19 03/21/19 03/21/19 01:30 01:45 02:00 Temperature Pulse Rate 65 64 64 Pulse Rate [ Anterior Bilateral Throughout] Pulse Rate [ From Monitor] Respiratory 14 15 15 Rate Respiratory Rate [Anterior Bilateral Throughout] Blood Pressure 136/89 131/91 138/91 O2 Sat by Pulse 96 95 94 Oximetry 0903/21/19 03/21/19 02:15 02:30 02:45 Temperature Pulse Rate 63 63 62 Pulse Rate [ Anterior Bilateral Throughout] Pulse Rate [ From Monitor] Respiratory 14 14 14 Rate Respiratory Rate [Anterior Bilateral Throughout] Blood Pressure 138/91 140/92 140/92 O2 Sat by Pulse 93 93 93 Oximetry 03/21/19 03/21/19 03/21/19 03:00 03:15 03:30 Temperature Pulse Rate 62 62 62 Pulse Rate [ Anterior Bilateral Throughout] Pulse Rate [ From Monitor] Respiratory 15 15 14 Rate Respiratory Rate [Anterior Bilateral Throughout] Blood Pressure 137/91 137/91 131/89 O2 Sat by Pulse 94 94 93 Oximetry 03/21/19 03/21/19 03/21/19 03:45 04:00 04:15 Temperature 99.8 F H Pulse Rate 62 62 62 Pulse Rate [ Anterior Bilateral Throughout] Pulse Rate [ 62 From Monitor] Respiratory 15 15 15 Rate Respiratory Rate [Anterior Bilateral Throughout] Blood Pressure 131/89 131/89 131/88 O2 Sat by Pulse 94 95 95 Oximetry 03/21/19 03/21/19 03/21/19 04:30 04:45 04:56 Temperature Pulse Rate 62 63 63 Pulse Rate [ Anterior Bilateral Throughout] Pulse Rate [ From Monitor] Respiratory 15 15 Rate Respiratory Rate [Anterior Bilateral Throughout] Blood Pressure 131/83 131/83 131/83 O2 Sat by Pulse 97 96 97 Oximetry 03/21/19 03/21/19 03/21/19 05:00 05:15 05:30 Temperature Pulse Rate 63 64 66 Pulse Rate [ 66 Anterior Bilateral Throughout] Pulse Rate [ From Monitor] Respiratory 15 15 15 Rate Respiratory 22 Rate [Anterior Bilateral Throughout] Blood Pressure 122/82 122/82 109/79 O2 Sat by Pulse 97 98 98 Oximetry 03/21/19 03/21/19 03/21/19 05:45 06:00 06:15 Temperature Pulse Rate 66 66 66 Pulse Rate [ Anterior Bilateral Throughout] Pulse Rate [ From Monitor] Respiratory 14 15 15 Rate Respiratory Rate [Anterior Bilateral Throughout] Blood Pressure 109/79 109/79 109/79 O2 Sat by Pulse 98 99 98 Oximetry 03/21/19 03/21/19 03/21/19 06:30 06:45 07:00 Temperature Pulse Rate 66 66 66 Pulse Rate [ Anterior Bilateral Throughout] Pulse Rate [ From Monitor] Respiratory 15 11 L 15 Rate Respiratory Rate [Anterior Bilateral Throughout] Blood Pressure 122/74 122/74 120/76 O2 Sat by Pulse 98 98 98 Oximetry 03/21/19 03/21/19 03/21/19 07:15 07:30 07:45 Temperature Pulse Rate 66 66 66 Pulse Rate [ Anterior Bilateral Throughout] Pulse Rate [ From Monitor] Respiratory 15 15 14 Rate Respiratory Rate [Anterior Bilateral Throughout] Blood Pressure 120/76 120/75 120/75 O2 Sat by Pulse 99 97 97 Oximetry 03/21/19 03/21/19 03/21/19 07:57 08:00 08:15 Temperature 98.6 F Pulse Rate 67 67 Pulse Rate [ Anterior Bilateral Throughout] Pulse Rate [ 67 From Monitor] Respiratory 15 14 Rate Respiratory Rate [Anterior Bilateral Throughout] Blood Pressure 123/76 123/76 O2 Sat by Pulse 97 97 Oximetry 03/21/19 03/21/19 03/21/19 08:30 08:45 09:00 Temperature Pulse Rate 69 68 68 Pulse Rate [ Anterior Bilateral Throughout] Pulse Rate [ From Monitor] Respiratory 15 15 15 Rate Respiratory Rate [Anterior Bilateral Throughout] Blood Pressure 116/70 116/70 117/71 O2 Sat by Pulse 98 98 98 Oximetry 03/21/19 03/21/19 03/21/19 09:15 09:30 09:31 Temperature Pulse Rate 68 68 68 Pulse Rate [ Anterior Bilateral Throughout] Pulse Rate [ From Monitor] Respiratory 15 15 Rate Respiratory Rate [Anterior Bilateral Throughout] Blood Pressure 117/71 109/67 107/76 O2 Sat by Pulse 98 98 98 Oximetry 03/21/19 03/21/19 03/21/19 09:45 10:00 10:15 Temperature Pulse Rate 69 70 70 Pulse Rate [ Anterior Bilateral Throughout] Pulse Rate [ From Monitor] Respiratory 15 15 15 Rate Respiratory Rate [Anterior Bilateral Throughout] Blood Pressure 109/67 102/72 102/72 O2 Sat by Pulse 97 97 99 Oximetry 03/21/19 03/21/19 03/21/19 10:30 10:45 11:00 Temperature Pulse Rate 70 70 70 Pulse Rate [ Anterior Bilateral Throughout] Pulse Rate [ From Monitor] Respiratory 15 15 15 Rate Respiratory Rate [Anterior Bilateral Throughout] Blood Pressure 106/73 106/73 102/69 O2 Sat by Pulse 99 99 99 Oximetry 03/21/19 03/21/19 03/21/19 11:15 11:30 11:45 Temperature Pulse Rate 70 70 69 Pulse Rate [ Anterior Bilateral Throughout] Pulse Rate [ From Monitor] Respiratory 15 15 15 Rate Respiratory Rate [Anterior Bilateral Throughout] Blood Pressure 102/69 102/69 102/69 O2 Sat by Pulse 98 99 99 Oximetry 03/21/19 03/21/19 12:00 12:15 Temperature Pulse Rate 70 70 Pulse Rate [ Anterior Bilateral Throughout] Pulse Rate [ From Monitor] Respiratory 15 15 Rate Respiratory Rate [Anterior Bilateral Throughout] Blood Pressure 102/72 102/72 O2 Sat by Pulse 98 97 Oximetry - General Appearance General appearance: well-developed, well-nourished, appears stated age, obese, intubated, other (on vent) EENT: ATNC Neck: supple Respiratory: Present: Clear to Ascultation Cardiology: regular, S1S2, no murmurs Gastrointestinal: no tenderness Integumentary: no rash, warm and dry Neurologic: other (slight grimace) Musculoskeletal: other (no edema) - Lab 03/22/19 08:00 03/22/19 08:00 Most recent lab results ABG pH 7.265 pH Units (7.350-7.450) L 03/19/19 05:35 ABG pCO2 45.5 mm Hg 03/19/19 05:35 ABG pO2 35.4 mm Hg (80.0-90.0) L* 03/19/19 05:35 ABG HCO3 20.2 mmol/L (20.0-26.0) 03/19/19 05:35 ABG O2 Saturation 54.4 % (95.0-99.0) L 03/19/19 05:35 Calcium 6.1 mg/dL (8.4-10.2) L D 03/21/19 04:26 Phosphorus 7.30 mg/dL (2.5-4.5) H 03/17/19 03:45 Magnesium 2.40 mg/dL (1.7-2.3) H 03/18/19 08:40 106.6 mg/dL (0.1-20.0) H 03/17/19 16:05 95 mmol/L 03/17/19 16:05 Medications & Allergies - Medications Allergies/Adverse Reactions: Allergies No Known Allergies Allergy (Unverified 03/16/19 17:17) Home Medications: Home Medications Medication Instructions Recorded Confirmed Last Taken Type Unobtainable 03/18/19 03/18/19 Unknown History Active Medications: Generic Name Dose Route Start Last Admin Trade Name Freq PRN Reason Stop Dose Admin Acetaminophen 650 mg 03/16/19 22:22 03/17/19 18:49 Tylenol SD 650 mg Q4H PRN Administration Fever >101 Albuterol/Ipratropium 1 ampul 03/19/19 20:00 03/21/19 09:44 Duoneb *Not For Prn Use* IH 1 ampul Q4HRT PAOLO Administration Lipase/Protease/Amylase 1 each 03/17/19 14:45 Pancreazapril Purcell 10,500 Unit FEEDTUBE PRN PRN For Clogged Feeding Tube Dextrose 50 gm 03/19/19 18:39 D50w (25gm) Vial IV PRN PRN Hypoglycemia Famotidine 20 mg 03/20/19 10:00 03/21/19 10:00 Pepcid IV 20 mg DAILY PAOLO Administration Fentanyl 50 mcg 03/16/19 16:06 03/16/19 17:02 Sublimaze IV 50 mcg Q10MIN PRN Administration ANALGESIA Fentanyl 25 mcg 03/19/19 18:33 03/20/19 02:53 Sublimaze IV 25 mcg Q2H PRN Administration Pain, Moderate (4-6) Hydrocortisone Sodium Succinate 100 mg 03/18/19 20:00 03/21/19 12:03 Solu-Cortef IV 100 mg Q8H PAOLO Administration Hydrophilic Ointment 1 applic 03/16/19 15:50 Vaseline Lip Therapy TP Q2HR PRN Dry Lips Midazolam HCl 100 mg/ Sodium 100 mls @ 2 mls/hr 03/16/19 16:00 03/19/19 18:45 Chloride IV 0 mg/hr TITR PAOLO 0 mls/hr Titration Protocol 2 MG/HR Fentanyl Citrate 2,000 mcg in 100 mls @ 6.804 mls/hr 03/16/19 17:00 03/21/19 03:24 Fentanyl Drip Premix IV 1 mcg/kg/hr TITR PAOLO 6.804 mls/hr Administration Protocol 1 MCG/KG/HR Vasopressin 20 unit/ Sodium 101 mls @ 9.09 mls/hr 03/16/19 23:45 03/21/19 01:53 Chloride IV 0.03 units/min TITR PAOLO 9.09 mls/hr Administration Protocol 0.03 UNITS/MIN Norepinephrine 8 mg/ Sodium 250 mls @ 3.75 mls/hr 03/17/19 02:00 03/21/19 12:17 Chloride IV 12 mcg/min TITR PAOLO 22.5 mls/hr Titration Protocol 2 MCG/MIN Phenylephrine HCl 100 mg/ 100 mls @ 3 mls/hr 03/17/19 02:30 03/19/19 18:48 Sodium Chloride IV Infused TITR PAOLO Titration Protocol 50 MCG/MIN Ceftriaxone Sodium 2 gm in 100 mls @ 200 mls/hr 03/17/19 12:00 03/21/19 10:01 Rocephin/Ns 2 Gm/100 Ml IV 200 mls/hr Q12HR PAOLO Administration Protocol Doxycycline Hyclate 100 mg/ 250 mls @ 250 mls/hr 03/17/19 12:00 03/21/19 1 0:02 Sodium Chloride IV 250 mls/hr Q12HR PAOLO Administration Protocol Dopamine HCl/Dextrose 800 mg in 250 mls @ 5.103 mls/hr 03/17/19 23:00 03/20/19 12:54 Intropin Drip 800 Mg/D5w 250 Ml IV 0 mcg/kg/min TITR PAOLO 0 mls/hr Titration Protocol 2 MCG/KG/MIN Amiodarone HCl 900 mg/ 500 mls @ 33.333 mls/hr 03/18/19 17:00 03/21/19 10:00 Dextrose IV 1 mg/min DIRECT PAOLO 33.333 mls/hr Administration Protocol 1 MG/MIN Dextrose 1,000 mls @ 50 mls/hr 03/19/19 19:00 03/20/19 15:05 D5w IV 50 mls/hr DIRECT PAOLO Administration Sodium Chloride 100 mls @ 999 mls/hr 03/20/19 11:00 Nacl 0.9% IV NEYMAR PRN Hypotension Midazolam HCl 2 mg 03/16/19 15:50 03/20/19 14:23 Versed IV 2 mg Q10MIN PRN Administration Sedation Midodrine 10 mg 03/18/19 20:00 03/21/19 12:03 Proamatine PO 10 mg Q8H PAOLO Administration Multi-Ingred Cream/Lotion/Oil/Oint 1 applic 03/16/19 15:50 03/19/19 20:10 Artificial Tears Ophth Oint OU 1 applic Q4HR PRN Administration Dry Eye(s) Ondansetron HCl 4 mg 03/16/19 22:21 Zofran IV Q8H PRN Nausea And Vomiting Simple Syrup 15 ml 03/17/19 14:45 Simple Syrup FEEDTUBE PRN PRN Hypoglycemia Simple Syrup 30 ml 03/17/19 14:45 Simple Syrup FEEDTUBE PRN PRN Hypoglycemia Sodium Bicarbonate 325 mg 03/17/19 14:45 Sodium Bicarbonate FEEDTUBE PRN PRN For Clogged Feeding Tube
--- NOTE | 2019-03-21 14:22 | Progress Note ---
Subjective - Reason for Consult Consult date: 03/21/19 Reason for consult: Psychiatric Follow-up Evaluation - Chief Complaint Chief complaint: The patient is intubated Patient is a 43 y.o. white male who presented to the ER for AMS. Psychiatry was consulted for NMS. Today the patient is intubated during the assessment. The patient does not follow commands, but respond to tactile stimulation. The patient is somewhat rigid and edematous. The patient is visiting a friend in the local area the past week. The patient's residence is in [place]. He became ill the past 2 days and was brought to the ER. Per the record, the patient has a hx of mental health. Mental Status Exam - Vital signs Last Vital Signs Temp 100.9 F H 03/21/19 12:00 Pulse 70 03/21/19 12:15 Resp 15 03/21/19 12:15 BP 102/72 03/21/19 12:15 Pulse Ox 97 03/21/19 12:15 - Exam Narrative exam: Unable to complete the MSE because of the patient's condition. Assessment and Plan Impression: R/O NMS. [place] [address] WBC 37.8. Medical: Multi-Organ failure, Septic Shock, Severe Sepsis, Rhabdomyolysis, Thrombocytopenia, The patient is receiving dialysis, Prognosis is poor per the medical staff Recommendation/Plan: 1. Recommend supportive care by the medical staff. 2. Recommend Dantrolene IV to lessen muscle rigidity. 3. Hold all antipsychotics at this time. 4. Psychiatry will sign off until patient is no longer intubated. Once patient is extubated please reconsult psychiatry. Will staff with Dr. Millie Li.
--- NOTE | 2019-03-21 16:55 | Progress Note ---
Assessment and Plan Assessment and plan: Patient is a 43 year old male with PMH of GERD, Obesity, and per family has been homeless on the streets in [place] admitted to our facility following arrival via private vehicle with AMS x 2 Days per friend. On arrival was intubated in the ED noted to have rectal temp of 105 AND SVT with rate in the 250 requiring 2 shocks delivery * Initial rhythm appeared to be SVT * Per friend patient complaining of feeling ill and has some left eye discharge, cold, clammy and diaphoretic by the time arrived to the hospital. Also mentions a possibility of a right axilla abscess. The and went to stay with his girlfriend the last 2 days and this morning when he saw the patient he was ill-appearing but sleeping. * Patient was on 4 pressors, currently on 1 * Start on Elizabeth culture including coverage for possible Meningitis CHEST 1 VIEW . IMPRESSION: 1. Endotracheal tube in good position. 2. Nasogastric tube doubled back on itself at the level of the [place] with the tip not seen. The tube repositioned. CT of the chest, abdomen and pelvis without contrast . IMPRESSION: 1. Parenchymal disease in both lower lobes posteromedially may be related to aspiration pneumonia. 2. Moderately dilated small bowel bowel loops in the mid to upper abdomen anteriorly with mild associated bowel wall thickening. Localized enteritis and small bowel ischemia should be considered. CT head/brain wo contrast. IMPRESSION: 1. Some component of diffuse cerebral edema cannot be excluded. However, this finding may be artifactual secondary to patient positioning. Close follow-up is recommended. No definitive signs of herniation or large territorial infarct at this time. 2. Otherwise, no focal mass, hemorrhage, hydrocephalus, or large infarct seen. Multi-Organ failure Septic Shock Severe Sepsis Acute Metabolic Encephalopathy Acute Respiratory Failure with Hypoxia Presume ARDS SVT with Polymorphic Vtach Rhabdomyolysis Severe Metabolic Acidosis Acute Cystitis Acute Kidney Failure secondary to ATN ANURIC Thrombocytopenia, Presume DIC Shock Liver Hypomagnesemia, Suspect Aspiration pneumonia Right Axillary cellulitis Enteritis Hypoglycemia-IMPROVED NMS; was considered and mental health consulted recommended supportive care because of the critical nature of the condition. Plan: Continue supportive care Neurology consult; appreciated EEG; generalized slowing, no epilpetiform focus Dialysis was done; nephrology is following Specialist impressions noted and appreciated Wean pressors as needed, currently on levophed Continue bicarb drip Holding further fluids due to poor urine output, Aspiration Precautions and VAP bundle Echo reviewed and noted Ultrasound to further evaluate right axilla to r/o abscess vs LAD Monitor Blood glucose prevent hypoglycemia UDS noted, only shows benzos, ?from here or outside. per family no hx of drugs CK is still very high, but trending down Patients BP is better DVT/GI prophy Poor prognosis Discussed with his brother on the phone. Advanced care planning, family opting against DNR, wants all done. Will like a call if patient codes as they may opt for limited code The high probability of a clinically significant, sudden or life threatening deterioration of the [multiple organs] system(s) required my full and direct attention, intervention and personal management. The aggregate critical care time was [45] minutes. This time is in addition to time spent performing reported procedures but includes the following: [x] Data Review and interpretation [x] Patient assessment and monitoring of vital signs [x] Documentation [x] Medication orders and management History Interval history: Patient was seen and evaluated this morning patient was intubated and on mechanical ventilation. Discussed the management plan with patient's nurse. patient on levophed. Hospitalist Physical - Physical exam Narrative exam: Patient is intubated and on mechanical ventilation. The patient is morbidly obese. Vital signs as documented. Head exam is unremarkable. No scleral icterus . Neck is without jugular venous distension, thyromegaly, or carotid bruits. Lungs are clear to auscultation. Cardiac exam reveals regular rate and Rhythm. Abdominal exam reveals normal bowel sounds. Extremities are nonedematous and both femoral and pedal pulses are normal. 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 - Constitutional Vitals: Temp Pulse Resp BP Pulse Ox 100.9 F H 62 16 113/61 93 03/21/19 12:00 03/21/19 16:15 03/21/19 16:15 03/21/19 16:15 03/21/19 16:15 General appearance: Present: severe distress, obese Results - Labs CBC & Chem 7: 03/24/19 04:50 03/24/19 04:50 Labs: Laboratory Last Values WBC 37.8 K/mm3 (4.5-11.0) H 03/21/19 04:26 RBC 4.49 M/mm3 (3.65-5.03) 03/21/19 04:26 Hgb 12.4 gm/dl (11.8-15.2) 03/21/19 04:26 Hct 38.0 % (35.5-45.6) 03/21/19 04:26 MCV 85 fl (84-94) 03/21/19 04:26 MCH 28 pg (28-32) 03/21/19 04:26 MCHC 33 % (32-34) 03/21/19 04:26 RDW 15.4 % (13.2-15.2) H 03/21/19 04:26 Plt Count 36 K/mm3 (140-440) L 03/21/19 04:26 [place] % (Auto) 1.6 % (0.0-7.3) 03/21/19 04:26 [place] # 0.6 K/mm3 (0.0-0.8) 03/21/19 04:26 Add Manual Diff Complete 03/21/19 04:26 Total Counted 100 03/21/19 04:26 Seg Neutrophils % Resource Specialist Teacher 03/21/19 04:26 Seg Neuts % (Manual) 93.0 % (40.0-70.0) H 03/21/19 04:26 0 % 03/21/19 04:26 3.0 % (13.4-35.0) L 03/21/19 04:26 Reactive Lymphs % (Man) 0 % 03/21/19 04:26 2.0 % (0.0-7.3) 03/21/19 04:26 0 % (0.0-4.3) 03/21/19 04:26 0 % (0.0-1.8) 03/21/19 04:26 2.0 % 03/21/19 04:26 0 % 03/21/19 04:26 0 % 03/21/19 04:26 0 % 03/21/19 04:26 Nucleated RBC % 1.0 % (0.0-0.9) H 03/21/19 04:26 Seg Neutrophils # 34.6 K/mm3 (1.8-7.7) H 03/21/19 04:26 Seg Neutrophils # Man 35.2 K/mm3 (1.8-7.7) H 03/21/19 04:26 Band Neutrophils # 0.0 K/mm3 03/21/19 04:26 1.1 K/mm3 (1.2-5.4) L 03/21/19 04:26 Abs React Lymphs (Man) 0.0 K/mm3 03/21/19 04:26 0.8 K/mm3 (0.0-0.8) 03/21/19 04:26 0.0 K/mm3 (0.0-0.4) 03/21/19 04:26 0.0 K/mm3 (0.0-0.1) 03/21/19 04:26 0.8 K/mm3 03/21/19 04:26 0.0 K/mm3 03/21/19 04:26 0.0 K/mm3 03/21/19 04:26 Blast Cells # 0.0 K/mm3 03/21/19 04:26 WBC Morphology Not Reportable 03/21/19 04:26 Hypersegmented Neuts Not Reportable 03/21/19 04:26 Hyposegmented Neuts Not Reportable 03/21/19 04:26 Hypogranular Neuts Not Reportable 03/21/19 04:26 Not Reportable 03/21/19 04:26 Not Reportable 03/21/19 04:26 Not Reportable 03/21/19 04:26 Not Reportable 03/21/19 04:26 Not Reportable 03/21/19 04:26 Not Reportable 03/21/19 04:26 Consistent w auto 03/21/19 04:26 Not Reportable 03/21/19 04:26 Plt Clumps, EDTA Not Reportable 03/21/19 04:26 Few 03/21/19 04:26 Rare 03/21/19 04:26 Not Reportable 03/21/19 04:26 Plt Morphology Comment Not Reportable 03/21/19 04:26 RBC Morphology Not Reportable 03/21/19 04:26 Dimorphic RBCs Not Reportable 03/21/19 04:26 Not Reportable 03/21/19 04:26 Not Reportable 03/21/19 04:26 Not Reportable 03/21/19 04:26 Few 03/21/19 04:26 Not Reportable 03/21/19 04:26 Not Reportable 03/21/19 04:26 Not Reportable 03/21/19 04:26 Not Reportable 03/21/19 04:26 Not Reportable 03/21/19 04:26 Not Reportable 03/21/19 04:26 Not Reportable 03/21/19 04:26 Not Reportable 03/21/19 04:26 Not Reportable 03/21/19 04:26 Not Reportable 03/21/19 04:26 Not Reportable 03/21/19 04:26 Not Reportable 03/21/19 04:26 Not Reportable 03/21/19 04:26 Not Reportable 03/21/19 04:26 Not Reportable 03/21/19 04:26 Acanthocytes (Spur) Not Reportable 03/21/19 04:26 Rouleaux Not Reportable 03/21/19 04:26 Not Reportable 03/21/19 04:26 Not Reportable 03/21/19 04:26 Not Reportable 03/21/19 04:26 Not Reportable 03/21/19 04:26 Hem Pathologist Commnt No 03/21/19 04:26 PT 15.9 Sec. (12.2-14.9) H 03/16/19 17:05 INR 1.30 (0.87-1.13) H 03/16/19 17:05 APTT 31.7 Sec. (24.2-36.6) 03/16/19 17:05 POC ABG pH 7.293 (7.35-7.45) L 03/21/19 14:11 ABG pH 7.265 pH Units (7.350-7.450) L 03/19/19 05:35 POC ABG pCO2 44.5 (35-45) 03/21/19 14:11 ABG pCO2 45.5 mm Hg 03/19/19 05:35 POC ABG pO2 89 (80-105) 03/21/19 14:11 ABG pO2 35.4 mm Hg (80.0-90.0) L* 03/19/19 05:35 POC ABG HCO3 21.5 (22-26 mml/L) 03/21/19 14:11 ABG HCO3 20.2 mmol/L (20.0-26.0) 03/19/19 05:35 POC ABG Total CO2 23 (23-27mmol/L) 03/21/19 14:11 POC ABG O2 Sat 96 03/21/19 14:11 ABG O2 Saturation 54.4 % (95.0-99.0) L 03/19/19 05:35 ABG O2 Content 9.7 (0.0-44) 03/19/19 05:35 POC ABG Base Excess -5 ((-2) - (+3)mmol/L) 03/21/19 14:11 ABG Base Excess -6.7 mmol/L (-2.0-3.0) L 03/19/19 05:35 ABG Hemoglobin 12.9 gm/dl (14.0-18.0) L 03/19/19 05:35 ABG Carboxyhemoglobin 1.0 % (0.0-5.0) 03/19/19 05:35 ABG Methemoglobin 0.8 % (0.0-1.5) 03/19/19 05:35 53.4 % (95.0-99.0) L 03/19/19 05:35 40 % 03/21/19 14:11 Sodium 131 mmol/L (137-145) L 03/21/19 04:26 Potassium 4.9 mmol/L (3.6-5.0) 03/21/19 04:26 Chloride 90.7 mmol/L (98-107) L 03/21/19 04:26 Carbon Dioxide 21 mmol/L (22-30) L 03/21/19 04:26 24 mmol/L 03/21/19 04:26 BUN 69 mg/dL (9-20) H 03/21/19 04:26 5.7 mg/dL (0.8-1.5) H 03/21/19 04:26 Estimated GFR 13 ml/min 03/21/19 04:26 12 % 03/21/19 04:26 Glucose 170 mg/dL (75-100) H 03/21/19 04:26 POC Glucose 123 (70-105) H 03/21/19 11:43 Lactic Acid 2.20 mmol/L (0.7-2.0) H* 03/21/19 12:00 Calcium 6.1 mg/dL (8.4-10.2) L D 03/21/19 04:26 Phosphorus 7.30 mg/dL (2.5-4.5) H 03/17/19 03:45 Magnesium 2.40 mg/dL (1.7-2.3) H 03/18/19 08:40 9.50 mg/dL (0.1-1.2) H 03/21/19 04:26 5.9 mg/dL (0-0.2) H 03/16/19 17:05 0.3 mg/dL 03/16/19 17:05 AST 308 units/L (5-40) H 03/21/19 04:26 ALT 124 units/L (7-56) H 03/21/19 04:26 327 units/L (35-129) H 03/21/19 04:26 68484 units/L (55-170) H 03/21/19 08:29 CK-MB (CK-2) 54.3 ng/mL (0.0-4.0) H 03/17/19 07:16 CK-MB (CK-2) Rel Index 0.0 (0-4) 03/17/19 07:16 0.058 ng/mL (0.00-0.029) H 03/17/19 07:16 13.30 mg/dL (0.00-1.30) H 03/20/19 14:45 5.7 g/dL (6.3-8.2) L 03/21/19 04:26 2.6 g/dL (3.9-5) L 03/21/19 04:26 0.8 % 03/21/19 04:26 Triglycerides 395 mg/dL (2-149) H 03/16/19 22:32 Cholesterol 88 mg/dL (50-199) 03/16/19 22:32 10 mg/dL (50-130) L 03/16/19 22:32 7 mg/dL (40-59) L 03/16/19 22:32 12.57 % 03/16/19 22:32 TSH 2.200 mlU/mL (0.270-4.200) 03/16/19 17:05 Free T4 0.72 ng/dL (0.76-1.46) L 03/16/19 17:05 Kathy (Yellow) 03/17/19 16:05 Cloudy (Clear) 03/17/19 16:05 5.0 (5.0-7.0) 03/17/19 16:05 Ur Specific [place] 1.014 (1.003-1.030) 03/17/19 16:05 >500 mg/dL (Negative) 03/17/19 16:05 50 mg/dL (Negative) 03/17/19 16:05 Tr mg/dL (Negative) 03/17/19 16:05 Lg (Negative) 03/17/19 16:05 Neg (Negative) 03/17/19 16:05 Neg (Negative) 03/17/19 16:05 < 2.0 mg/dL (<2.0) 03/17/19 16:05 Ur Leukocyte Esterase Mod (Negative) 03/17/19 16:05 30.0 /HPF (0.0-6.0) H 03/17/19 16:05 11.0 /HPF (0.0-6.0) 03/17/19 16:05 U Epithel Cells (Auto) < 1.0 /HPF (0-13.0) 03/17/19 16:05 Few /HPF 03/17/19 16:05 2+ /HPF (STREET LIGHT SERVICER) 03/17/19 16:05 None seen (None Seen) 03/17/19 16:05 106.6 mg/dL (0.1-20.0) H 03/17/19 16:05 95 mmol/L 03/17/19 16:05 Vancomycin Trough 11.5 ug/mL (5.0-20.0) 03/18/19 13:19 Random Vancomycin 11.3 ug/mL (0-40.0) 03/21/19 04:26 Salicylates < 0.3 mg/dL (2.8-20.0) L 03/16/19 17:05 Presumptive negative 03/17/19 16:05 Presumptive negative 03/17/19 16:05 Acetaminophen < 5.0 ug/mL (10.0-30.0) L 03/16/19 17:05 Ur Barbiturates Screen Presumptive negative 03/17/19 16:05 Ur Phencyclidine Scrn Presumptive negative 03/17/19 16:05 Ur Amphetamines Screen Presumptive negative 03/17/19 16:05 U Benzodiazepines Scrn Presumptive positive 03/17/19 16:05 Presumptive negative 03/17/19 16:05 U Marijuana (THC) Screen Presumptive negative 03/17/19 16:05 Disclamer 03/17/19 16:05 Plasma/Serum Alcohol < 0.01 % (0-0.07) 03/16/19 17:05 Hepatitis A IgM Ab Non-reactive (NonReactive) 03/18/19 13:18 Hep Bs Antigen Non-reactive (Negative) 03/18/19 13:18 Hep B Core IgM Ab Non-reactive (NonReactive) 03/18/19 13:18 Non-reactive (NonReactive) 03/18/19 13:18 HIV 1&2 Antibody Rapid Non react (Non React) 03/17/19 11:52 Non react (Non React) 03/17/19 11:52 Influenza A (Rapid) Negative (Negative) 03/17/19 17:00 Influenza B (Rapid) Negative (Negative) 03/17/19 17:00 Group A Strep Rapid Negative (Negative) 03/17/19 17:00 Active Medications - Current Medications Current Medications: Generic Name Dose Route Start Last Admin Trade Name Freq PRN Reason Stop Dose Admin Acetaminophen 650 mg 03/16/19 22:22 03/17/19 18:49 Tylenol [place] 650 mg Q4H PRN Administration Fever >101 Albuterol/Ipratropium 1 ampul 03/19/19 20:00 03/21/19 13:50 Duoneb *Not For Prn Use* IH 1 ampul Q4HRT PAOLO Administration Lipase/Protease/Amylase 1 each 03/17/19 14:[address] 10,500 Unit FEEDTUBE PRN PRN For Clogged Feeding Tube Dextrose 50 gm 03/19/19 18:39 D50w (25gm) Vial IV PRN PRN Hypoglycemia Famotidine 20 mg 03/20/19 10:00 03/21/19 10:00 Pepcid IV 20 mg DAILY PAOLO Administration Fentanyl 50 mcg 03/16/19 16:06 03/16/19 17:02 Sublimaze IV 50 mcg Q10MIN PRN Administration ANALGESIA Fentanyl 25 mcg 03/19/19 18:33 03/20/19 02:53 Sublimaze IV 25 mcg Q2H PRN Administration Pain, Moderate (4-6) Hydrocortisone Sodium Succinate 100 mg 03/18/19 20:00 03/21/19 12:03 Solu-Cortef IV 100 mg Q8H PAOLO Administration Hydrophilic Ointment 1 applic 03/16/19 15:50 Vaseline Lip Therapy TP Q2HR PRN Dry Lips Midazolam HCl 100 mg/ Sodium 100 mls @ 2 mls/hr 03/16/19 16:00 03/19/19 18:45 Chloride IV 0 mg/hr TITR PAOLO 0 mls/hr Titration Protocol 2 MG/HR Fentanyl Citrate 2,000 mcg in 100 mls @ 6.804 mls/hr 03/16/19 17:00 03/21/19 13:04 Fentanyl Drip Premix IV 1 mcg/kg/hr TITR PAOLO 6.804 mls/hr Administration Protocol 1 MCG/KG/HR Vasopressin 20 unit/ Sodium 101 mls @ 9.09 mls/hr 03/16/19 23:45 03/21/19 13:04 Chloride IV 0.03 units/min TITR PAOLO 9.09 mls/hr Administration Protocol 0.03 UNITS/MIN Norepinephrine 8 mg/ Sodium 250 mls @ 3.75 mls/hr 03/17/19 02:00 03/21/19 14:32 Chloride IV 10 mcg/min TITR PAOLO 18.75 mls/hr Administration Protocol 2 MCG/MIN Phenylephrine HCl 100 mg/ 100 mls @ 3 mls/hr 03/17/19 02:30 03/19/19 18:48 Sodium Chloride IV Infused TITR PAOLO Titration Protocol 50 MCG/MIN Ceftriaxone Sodium 2 gm in 100 mls @ 200 mls/hr 03/17/19 12:00 03/21/19 10:01 Rocephin/Ns 2 Gm/100 Ml IV 200 mls/hr Q12HR PAOLO Administration Protocol Doxycycline Hyclate 100 mg/ 250 mls @ 250 mls/hr 03/17/19 12:00 03/21/19 10:02 Sodium Chloride IV 250 mls/hr Q12HR PAOLO Administration Protocol Dopamine HCl/Dextrose 800 mg in 250 mls @ 5.103 mls/hr 03/17/19 23:00 03/20/19 12:54 Intropin Drip 800 Mg/D5w 250 Ml IV 0 mcg/kg/min TITR PAOLO 0 mls/hr Titration Protocol 2 MCG/KG/MIN Amiodarone HCl 900 mg/ 500 mls @ 33.333 mls/hr 03/18/19 17:00 03/21/19 10:00 Dextrose IV 1 mg/min DIRECT PAOLO 33.333 mls/hr Administration Protocol 1 MG/MIN Sodium Chloride 100 mls @ 999 mls/hr 03/20/19 11:00 Nacl 0.9% IV NEYMAR PRN Hypotension Midazolam HCl 2 mg 03/16/19 15:50 03/20/19 14:23 Versed IV 2 mg Q10MIN PRN Administration Sedation Midodrine 10 mg 03/18/19 20:00 03/21/19 12:03 Proamatine PO 10 mg Q8H PAOLO Administration Multi-Ingred Cream/Lotion/Oil/Oint 1 applic 03/16/19 15:50 03/19/19 20:10 Artificial Tears Ophth Oint OU 1 applic Q4HR PRN Administration Dry Eye(s) Ondansetron HCl 4 mg 03/16/19 22:21 Zofran IV Q8H PRN Nausea And Vomiting Simple Syrup 15 ml 03/17/19 14:45 Simple Syrup FEEDTUBE PRN PRN Hypoglycemia Simple Syrup 30 ml 03/17/19 14:45 Simple Syrup FEEDTUBE PRN PRN Hypoglycemia Sodium Bicarbonate 325 mg 03/17/19 14:45 Sodium Bicarbonate FEEDTUBE PRN PRN For Clogged Feeding Tube Nutrition/Malnutrition Assess - Dietary Evaluation Nutrition/Malnutrition Findings: Nutrition Notes Start: 03/17/19 14:22 Freq: Status: Active Protocol: Document 03/20/19 11:02 LM (Rec: 03/20/19 11:23 LM [id number]) Nutrition Notes Initial or Follow up Reassessment Current Diagnosis Acute Kidney Injury Other Pertinent Diagnosis Septic shock,Multiple organ failure, encephalopathy, rhabdomyolysis Current Diet no diet ordered Labs/Tests Na 131 BUN 68 Cr 6.1 BG 164 Pertinent Medications Norepinephrine, Vasopressin, Phenylephrine, Dopamine Height 6 ft Weight 152.4 kg [place] Body Weight (kg) 80.90 BMI 45.6 Subjective/Other Information Pt still on multiple pressors. TF still on hold. Burn Absent Trauma Absent Minimum of two criteria No #1 Nutrition Diagnosis Inadequate oral intake Diagnosis Progress(for reassessment Continues documentation) Is patient on ventilator? Yes Is Patient Ambulatory and/or Out of Bed No REE-([facility]-confined to bed) 2938.896 Kcal/Kg value to use for calculation 16 Approximate Energy Requirements Using 2438 kcal/Kg Calculation Used for Recommendations Kcal/kg Additional Notes Protein Needs: 202g (2.5g/kg IBW 80.9) Fluid Needs: 1 ml/kcal Nutrition Intervention Change Diet Order: Recommend TF when medically feasible Nutrition Support: Vital 1.2 at 85 ml/hr Decrease flush to 100 ml q4hr for hyponatremia Kcal 2,448 Protein (gm) 153 Fluid (mL) 1,654 Goal #1 Start TF when medically feasible Anticipated Discharge Needs: Unable to determine at this time Follow-Up By: 03/22/19 Additional Comments Follow for POC
[2019-03-21] MEDS: METOCLOPRAMIDE 10 MG/2 ML INJ IV SCH (19:31)
[2019-03-22] MEDS: AMIODARONE 900 MG in DEXTROSE 5% IN WATER 482 ML IV SCH ×2 (00:34→13:10)
[2019-03-22] MEDS: VASOPRESSIN 20 UNIT in SODIUM CHLORIDE 0.9% 100 ML IV SCH (00:35)
[2019-03-22] MEDS: METOCLOPRAMIDE 10 MG/2 ML INJ IV SCH ×4 (01:00→21:09)
--- NOTE | 2019-03-22 03:50 | XRay Report ---
CHEST 1 VIEW 03/22/2019 2:55 AM INDICATION / CLINICAL INFORMATION: follow up respiratory failure. COMPARISON: 03/21/2019. FINDINGS: SUPPORT DEVICES: Stable satisfactory device positioning. HEART / MEDIASTINUM: Stable. LUNGS / PLEURA: Stable mild interstitial edema. Increasing right lower lobe parenchymal opacity. No p neumothorax. ADDITIONAL FINDINGS: No significant additional findings. IMPRESSION: 1. Increasing right lower lobe opacity that could reflect developing atelectasis or changes related t o aspiration or infection. Signer Name: Stuart Pacheco MD Signed: 03/22/2019 3:46 AM Workstation Name: [id number]
[2019-03-22] MEDS: HYDROCORTISONE SOD SUCC 100 MG/2 ML VIAL IV SCH ×3 (04:00→21:08)
[2019-03-22] MEDS: IPRATROPIUM/ALBUTEROL SULFATE 3 ML AMPUL.NEB IH SCH ×6 (04:35→23:40)
[2019-03-22] MEDS: MIDODRINE 5 MG TAB PO SCH ×3 (04:50→21:09)
[2019-03-22] MEDS: fentaNYL DRIP Premix 2,000 MCG/100 ML BAG IV SCH ×3 (04:50→22:49)
[2019-03-22] MEDS: NORepinephrine 8 MG in SODIUM CHLORIDE 0.9% 250ML 242 ML IV SCH ×2 (04:51→16:00)
[2019-03-22 08:12] LABS: Hematocrit 33.5 % (35.5-45.6); Mean Corpuscular HGB Conc 33 % (32-34); Mean Corpuscular Volume 85 fl (84-94); Red Blood Count 3.94 M/mm3 (3.65-5.03); Red Cell Distribution Width 15.5 % (13.2-15.2)
[2019-03-22 08:20] LABS: Platelet Count 43 K/mm3 (140-440)
[2019-03-22 08:28] LABS: Albumin 2.5 g/dL (3.9-5)
[2019-03-22 08:41] LABS: Calcium 5.2 mg/dL (8.4-10.2)
[2019-03-22] MEDS: DOXYCYCLINE HYCLATE 100 MG in SODIUM CHLORIDE 0.9% 250ML 250 ML IV SCH ×2 (09:42→22:51)
[2019-03-22] MEDS: FAMOTIDINE 20 MG/2 ML INJ IV SCH (09:42)
[2019-03-22] MEDS: cefTRIAXone/NS 2 GM/100 ML 2 GM/100 ML BAG IV SCH ×2 (09:43→22:51)
[2019-03-22] MEDS ORDERED: CALCIUM GLUCONATE 2,000 MG in SODIUM CHLORIDE 0.9% 100 ML IV ONE (10:00)
--- NOTE | 2019-03-22 10:01 | Progress Note ---
Assessment and Plan 1. Acute kidney injury: Vasomotor RUBEN in the setting of shock / volume depletion / Rhabdo. Baseline renal function is unknown. Patient remain anuric / oliguric. CT abdomen was negative for obstructive nephropathy. Monitor renal function. Renal prognosis is guarded. Avoid nephrotoxic agents. Meds dosage based on GFR. Patient was started on hemodialysis on 03/18/19 due to worsening metabolic acidosis and hyperkalemia. Hemodialysis: 03/18, 03/19, 03/20, 03/22. 2. FEN: Hyperkalemia, HD today. Hyponatremia, monitor. Metabolic acidosis, 2/2 Lactic acidosis. Volume overload, UF with HD as tolerated. Replete Calcium. Monitor lytes. 3. Septic shock: On broad spectrum Abx. Followed by ID. Currently on Midodrine and 2 different IV pressors. Follow cultures. 4. Rhabdomyolysis: Follow CK level. 5. SVT / V.tach: Followed by Cards. 6. Respiratory failure: On vent. 7. Multiple organ failure. 8. Elevated transaminases. 9. Encephalopathy: Followed by Neuro. Subjective Date of service: 03/22/19 Principal diagnosis: Septic Shock; Ac. hypoxemic resp failure; Renzo. PNA; Rhabd omyolysis; RUBEN Interval history: Patient was seen and examined at the bedside. Remain on the vent. Objective - Vital Signs Vital signs: Vital Signs - 12hr 03/21/19 03/21/19 03/21/19 22:15 22:30 22:45 Temperature Pulse Rate 60 60 60 Pulse Rate [ Anterior Bilateral Throughout] Pulse Rate [ From Monitor] Respiratory 22 18 21 Rate Respiratory Rate [Anterior Bilateral Throughout] Blood Pressure 98/52 99/53 99/53 O2 Sat by Pulse 94 94 94 Oximetry 03/21/19 03/21/19 03/21/19 23:00 23:12 23:15 Temperature Pulse Rate 60 62 Pulse Rate [ 61 Anterior Bilateral Throughout] Pulse Rate [ From Monitor] Respiratory 16 11 L Rate Respiratory 21 Rate [Anterior Bilateral Throughout] Blood Pressure 94/55 94/55 O2 Sat by Pulse 95 97 Oximetry 03/21/19 03/21/19 03/21/19 23:30 23:45 23:47 Temperature Pulse Rate 61 62 60 Pulse Rate [ Anterior Bilateral Throughout] Pulse Rate [ From Monitor] Respiratory 19 20 Rate Respiratory Rate [Anterior Bilateral Throughout] Blood Pressure 94/55 94/55 101/65 O2 Sat by Pulse 98 95 96 Oximetry 03/22/19 03/22/19 03/22/19 00:00 00:15 00:30 Temperature 97.5 F L Pulse Rate 60 63 64 Pulse Rate [ Anterior Bilateral Throughout] Pulse Rate [ 60 From Monitor] Respiratory 14 12 15 Rate Respiratory Rate [Anterior Bilateral Throughout] Blood Pressure 101/47 101/47 101/44 O2 Sat by Pulse 95 95 95 Oximetry 03/22/19 03/22/19 03/22/19 00:45 01:00 01:15 Temperature Pulse Rate 63 63 62 Pulse Rate [ Anterior Bilateral Throughout] Pulse Rate [ From Monitor] Respiratory 21 21 22 Rate Respiratory Rate [Anterior Bilateral Throughout] Blood Pressure 101/44 97/49 97/49 O2 Sat by Pulse 94 94 95 Oximetry 03/22/19 03/22/19 03/22/19 01:30 01:45 02:00 Temperature Pulse Rate 63 61 66 Pulse Rate [ Anterior Bilateral Throughout] Pulse Rate [ 63 From Monitor] Respiratory 18 18 21 Rate Respiratory Rate [Anterior Bilateral Throughout] Blood Pressure 100/50 100/50 103/49 O2 Sat by Pulse 94 94 94 Oximetry 03/22/19 03/22/19 03/22/19 02:15 02:31 02:45 Temperature Pulse Rate 72 77 111 H Pulse Rate [ Anterior Bilateral Throughout] Pulse Rate [ From Monitor] Respiratory 14 17 21 Rate Respiratory Rate [Anterior Bilateral Throughout] Blood Pressure 103/49 103/49 103/49 O2 Sat by Pulse 94 94 91 Oximetry 03/22/19 03/22/19 03/22/19 03:01 03:15 03:30 Temperature Pulse Rate 115 H 75 127 H Pulse Rate [ Anterior Bilateral Throughout] Pulse Rate [ From Monitor] Respiratory 20 24 20 Rate Respiratory Rate [Anterior Bilateral Throughout] Blood Pressure 103/49 131/78 130/81 O2 Sat by Pulse 92 89 88 Oximetry 03/22/19 03/22/19 03/22/19 03:45 04:00 04:01 Temperature 98.9 F Pulse Rate 120 H 85 112 H Pulse Rate [ Anterior Bilateral Throughout] Pulse Rate [ 108 H From Monitor] Respiratory 24 22 27 H Rate Respiratory Rate [Anterior Bilateral Throughout] Blood Pressure 130/81 114/75 O2 Sat by Pulse 86 95 86 Oximetry 03/22/19 03/22/19 03/22/19 04:15 04:31 04:35 Temperature Pulse Rate 121 H 111 H Pulse Rate [ 108 H Anterior Bilateral Throughout] Pulse Rate [ From Monitor] Respiratory 28 H 24 Rate Respiratory 22 Rate [Anterior Bilateral Throughout] Blood Pressure 114/75 118/69 O2 Sat by Pulse 87 82 L Oximetry 03/22/19 03/22/19 03/22/19 04:45 05:01 05:07 Temperature Pulse Rate 122 H 112 H 106 H Pulse Rate [ Anterior Bilateral Throughout] Pulse Rate [ From Monitor] Respiratory 17 17 Rate Respiratory Rate [Anterior Bilateral Throughout] Blood Pressure 118/69 110/63 122/69 O2 Sat by Pulse 91 88 91 Oximetry 03/22/19 03/22/19 03/22/19 05:15 05:31 05:45 Temperature Pulse Rate 83 86 120 H Pulse Rate [ Anterior Bilateral Throughout] Pulse Rate [ From Monitor] Respiratory 22 21 20 Rate Respiratory Rate [Anterior Bilateral Throughout] Blood Pressure 110/63 62/26 62/26 O2 Sat by Pulse 83 L 84 84 Oximetry 03/22/19 03/22/19 03/22/19 06:01 06:15 06:31 Temperature Pulse Rate 129 H 76 86 Pulse Rate [ Anterior Bilateral Throughout] Pulse Rate [ From Monitor] Respiratory 28 H 22 20 Rate Respiratory Rate [Anterior Bilateral Throughout] Blood Pressure 62/26 62/26 107/62 O2 Sat by Pulse 72 L 84 87 Oximetry 03/22/19 03/22/19 03/22/19 06:45 07:00 07:15 Temperature Pulse Rate 100 H 113 H 106 H Pulse Rate [ Anterior Bilateral Throughout] Pulse Rate [ From Monitor] Respiratory 18 14 13 Rate Respiratory Rate [Anterior Bilateral Throughout] Blood Pressure 107/62 111/66 107/62 O2 Sat by Pulse 86 88 88 Oximetry 03/22/19 03/22/19 03/22/19 07:30 07:43 07:45 Temperature Pulse Rate 110 H 78 112 H Pulse Rate [ Anterior Bilateral Throughout] Pulse Rate [ From Monitor] Respiratory 14 20 Rate Respiratory Rate [Anterior Bilateral Throughout] Blood Pressure 110/51 110/51 111/66 O2 Sat by Pulse 87 87 87 Oximetry 03/22/19 03/22/19 03/22/19 07:54 08:00 08:15 Temperature Pulse Rate 114 H 112 H Pulse Rate [ 75 Anterior Bilateral Throughout] Pulse Rate [ From Monitor] Respiratory 17 25 H Rate Respiratory 20 Rate [Anterior Bilateral Throughout] Blood Pressure 111/61 110/51 O2 Sat by Pulse 95 85 Oximetry 03/22/19 03/22/19 03/22/19 08:30 08:45 09:00 Temperature Pulse Rate 126 H 115 H 120 H Pulse Rate [ Anterior Bilateral Throughout] Pulse Rate [ From Monitor] Respiratory Rate Respiratory Rate [Anterior Bilateral Throughout] Blood Pressure 118/67 118/67 104/64 O2 Sat by Pulse 83 L 92 87 Oximetry - General Appearance General appearance: well-developed, well-nourished, appears stated age, obese, intubated, other (on vent, R IJ temp catheter) EENT: ATNC Neck: supple Respiratory: Present: Other (coarse breath sounds) Cardiology: regular, tachycardia, no murmurs Gastrointestinal: no tenderness, obese Integumentary: no rash Neurologic: obtunded Musculoskeletal: other (no edema) - Lab 03/22/19 08:00 03/22/19 08:00 Most recent lab results ABG pH 7.265 pH Units (7.350-7.450) L 03/19/19 05:35 ABG pCO2 45.5 mm Hg 03/19/19 05:35 ABG pO2 35.4 mm Hg (80.0-90.0) L* 03/19/19 05:35 ABG HCO3 20.2 mmol/L (20.0-26.0) 03/19/19 05:35 ABG O2 Saturation 54.4 % (95.0-99.0) L 03/19/19 05:35 Calcium 5.2 mg/dL (8.4-10.2) L* 03/22/19 08:00 Phosphorus 7.30 mg/dL (2.5-4.5) H 03/17/19 03:45 Magnesium 2.40 mg/dL (1.7-2.3) H 03/18/19 08:40 106.6 mg/dL (0.1-20.0) H 03/17/19 16:05 95 mmol/L 03/17/19 16:05 Medications & Allergies - Medications Allergies/Adverse Reactions: Allergies No Known Allergies Allergy (Unverified 03/16/19 17:17) Home Medications: Home Medications Medication Instructions Recorded Confirmed Last Taken Type Unobtainable 03/18/19 03/18/19 Unknown History Active Medications: Generic Name Dose Route Start Last Admin Trade Name Kirkq PRN Reason Stop Dose Admin Acetaminophen 650 mg 03/16/19 22:22 03/17/19 18:49 Tylenol MN 650 mg Q4H PRN Administration Fever >101 Albuterol/Ipratropium 1 ampul 03/19/19 20:00 03/22/19 07:53 Duoneb *Not For Prn Use* IH 1 ampul Q4HRT PAOLO Administration Lipase/Protease/Amylase 1 each 03/17/19 14:[address] 10,500 Unit FEEDTUBE PRN PRN For Clogged Feeding Tube Dextrose 50 gm 03/19/19 18:39 D50w (25gm) Vial IV PRN PRN Hypoglycemia Famotidine 20 mg 03/20/19 10:00 03/22/19 09:42 Pepcid IV 20 mg DAILY PAOLO Administration Fentanyl 50 mcg 03/16/19 16:06 03/16/19 17:02 Sublimaze IV 50 mcg Q10MIN PRN Administration ANALGESIA Fentanyl 25 mcg 03/19/19 18:33 03/20/19 02:53 Sublimaze IV 25 mcg Q2H PRN Administration Pain, Moderate (4-6) Hydrocortisone Sodium Succinate 100 mg 03/18/19 20:00 03/21/19 21:00 Solu-Cortef IV 100 mg Q8H PAOLO Administration Hydrophilic Ointment 1 applic 03/16/19 15:50 Vaseline Lip Therapy TP Q2HR PRN Dry Lips Midazolam HCl 100 mg/ Sodium 100 mls @ 2 mls/hr 03/16/19 16:00 03/19/19 18:45 Chloride IV 0 mg/hr TITR PAOLO 0 mls/hr Titration Protocol 2 MG/HR Fentanyl Citrate 2,000 mcg in 100 mls @ 6.804 mls/hr 03/16/19 17:00 03/22/19 04:50 Fentanyl Drip Premix IV 1 mcg/kg/hr TITR PAOLO 6.804 mls/hr Administration Protocol 1 MCG/KG/HR Vasopressin 20 unit/ Sodium 101 mls @ 9.09 mls/hr 03/16/19 23:45 03/22/19 00:35 Chloride IV 0.03 units/min TITR PAOLO 9.09 mls/hr Administration Protocol 0.03 UNITS/MIN Norepinephrine 8 mg/ Sodium 250 mls @ 3.75 mls/hr 03/17/19 02:00 03/22/19 04:51 Chloride IV 8 mcg/min TITR PAOLO 15 mls/hr Administration Protocol 2 MCG/MIN Phenylephrine HCl 100 mg/ 100 mls @ 3 mls/hr 03/17/19 02:30 03/19/19 18:48 Sodium Chloride IV Infused TITR PAOLO Titration Protocol 50 MCG/MIN Ceftriaxone Sodium 2 gm in 100 mls @ 200 mls/hr 03/17/19 12:00 03/22/19 09:43 Rocephin/Ns 2 Gm/100 Ml IV 200 mls/hr Q12HR PAOLO Administration Protocol Doxycycline Hyclate 100 mg/ 250 mls @ 250 mls/hr 03/17/19 12:00 03/22/19 09:42 Sodium Chloride IV 250 mls/hr Q12HR PAOLO Administration Protocol Dopamine HCl/Dextrose 800 mg in 250 mls @ 5.103 mls/hr 03/17/19 23:00 03/20/19 12:54 Intropin Drip 800 Mg/D5w 250 Ml IV 0 mcg/kg/min TITR PAOLO 0 mls/hr Titration Protocol 2 MCG/KG/MIN Amiodarone HCl 900 mg/ 500 mls @ 33.333 mls/hr 03/18/19 17:00 03/22/19 00:34 Dextrose IV 1 mg/min DIRECT PAOLO 33.333 mls/hr Administration Protocol 1 MG/MIN Sodium Chloride 100 mls @ 999 mls/hr 03/20/19 11:00 Nacl 0.9% IV NEYMAR PRN Hypotension Calcium Gluconate 2,000 mg/ 120 mls @ 240 mls/hr 03/22/19 10:00 Sodium Chloride IV 03/22/19 10:29 ONCE ONE Metoclopramide HCl 5 mg 03/21/19 19:00 03/22/19 07:55 Reglan IV 5 mg Q6H PAOLO Administration Midazolam HCl 2 mg 03/16/19 15:50 03/20/19 14:23 Versed IV 2 mg Q10MIN PRN Administration Sedation Midodrine 10 mg 03/18/19 20:00 03/22/19 04:50 Proamatine PO 10 mg Q8H PAOLO Administration Multi-Ingred Cream/Lotion/Oil/Oint 1 applic 03/16/19 15:50 03/19/19 20:10 Artificial Tears Ophth Oint OU 1 applic Q4HR PRN Administration Dry Eye(s) Ondansetron HCl 4 mg 03/16/19 22:21 Zofran IV Q8H PRN Nausea And Vomiting Simple Syrup 15 ml 03/17/19 14:45 Simple Syrup FEEDTUBE PRN PRN Hypoglycemia Simple Syrup 30 ml 03/17/19 14:45 Simple Syrup FEEDTUBE PRN PRN Hypoglycemia Sodium Bicarbonate 325 mg 03/17/19 14:45 Sodium Bicarbonate FEEDTUBE PRN PRN For Clogged Feeding Tube
[2019-03-22] MEDS ORDERED: SODIUM CHLORIDE 0.9% 100 ML IV PRN (10:21)
--- NOTE | 2019-03-22 11:01 | Progress Note ---
Assessment and Plan Cultures: 03/16/2019 sputum: salivary contamination 03/16/2019 Blood culture: no growth 03/17/2019 Urine culture no growth 03/17/2019 throat culture: no growth Assessment: 43/M with ?psych history: 1) Refractory septic shock: remains on pressors, HD, intubated on the vent. Leukocytosis +, fever trending down. ?Infectious etiology v/s possibility of Neuroleptic Malignant Syndrome given psych history, high fever of 105F and extremely elevated CPK of >100K. Unclear if he was on any psych med. From ID standpoint, we will continue broad coverage for acute bacterial meningitis, tick borne illness, aspiration pneumonia. Blood culture negative so far. UA with mild pyuria. HIV rapid negative. Strep A rapid ag negative. 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 He lives in a hotel in a [place] neighborhood in [place] and believes he has been intermittently homeless. He met his friend Gio, who brought him to [place]. Brother denies any history of drug abuse or alcohol abuse but reports history of mental disorder, he has never received treatment. His parent do not talk to him. He denies homosexual behavior but does not have clear why he is in so close contact with new friend Gio here in [place]. Brother does not know anything about his symptoms as he spoke with him last time 3 months ago. 2) Probable aspiration pneumonia: on abx. 3) Acute respiratory failure: on the vent. 4) ?Right axillary edema: no abscess, US no collection seen 5) Acute encephalopathy: should r/o meningitis when able to. CT head showed diffuse cerebral edema ?artifact. But too unstable for LP at this time. 6) Multiorgan dysfunction syndrome 7) Acute renal failure: renally dosing all abx, now on HD 8) Elevated LFTs/shock liver: also likely elevated from Rhabdomyolysis. Viral hepatitis panel negative. 9) Thrombocytopenia 10) Rhabdomyolysis 11) ?Enteritis: per CT ? no collection no perforation no obvious ischemic bowel Recommendations: LP when feasible, continue droplet isolation till meningitis is ruled out continue IV Ceftriaxone 2 gm IV q12 h continue IV doxycycline 100 mg IV q12 h continue vancomycin IV renally adjusted tickborne serologies pending prognosis remains guarded Will follow along. Katherine Elizabeth MD, FACP [facility] ([facility]) M: [phone] O: [phone] F: [phone] Subjective Date of service: 03/22/19 Principal diagnosis: Septic Shock; Ac. hypoxemic resp failure; Renzo. PNA; Rhabdomyolysis; RUBEN Interval history: Low grade fever. Remains on 2 pressors, being weaned. On the vent. Sedated. Objective - Exam Narrative Exam: Physical Exam: Constitutional: sedated, intubated Head, Ears, Nose: Normocephalic, atraumatic. External ears, nose normal Eyes: Conjunctivae/corneas clear. No icterus. No ptosis. Neck: Supple, no meningeal signs Oral: intubated Cardiovascular: S1, S2 normal. Respiratory: Good air entry, clear to auscultation bilaterally GI: Soft; bowel sounds hypoactive. No peritoneal signs Musculoskeletal: No pedal edema. Skin: No rash or abscess Hem/Lymphatic: No palpable cervical or supraclavicular nodes. No lymphangitis Psych: no agitation Neurological: sedated, intubated, on vent - Constitutional Vitals: Vital Signs Temp Pulse Resp BP Pulse Ox 98.9 F 120 H 22 104/64 87 03/22/19 04:00 03/22/19 09:00 03/22/19 09:00 03/22/19 09:00 03/22/19 09:00 Temperature -Last 24 Hours Temperature 98.9 F Temperature 97.5 F Temperature 98.3 F Temperature 98.3 F Temperature 100.9 F - Labs CBC & Chem 7: 03/22/19 08:00 03/22/19 08:00 Labs: Abnormal lab results 03/21/19 03/21/19 03/21/19 Range/Units 05:39 11:43 12:00 WBC (4.5-11.0) K/mm3 Hgb (11.8-15.2) gm/dl Hct (35.5-45.6) % RDW (13.2-15.2) % Plt Count (140-440) K/mm3 POC ABG pH (7.35-7.45) POC ABG pO2 (80-105) Sodium (137-145) mmol/L Potassium (3.6-5.0) mmol/L Chloride (98-107) mmol/L Carbon Dioxide (22-30) mmol/L BUN (9-20) mg/dL Creatinine (0.8-1.5) mg/dL Glucose (75-100) mg/dL POC Glucose 145 H 123 H (70-105) Lactic Acid 2.20 H* (0.7-2.0) mmol/L Calcium (8.4-10.2) mg/dL Total Bilirubin (0.1-1.2) mg/dL AST (5-40) units/L ALT (7-56) units/L Alkaline Phosphatase (35-129) units/L Total Protein (6.3-8.2) g/dL Albumin (3.9-5) g/dL 03/21/19 03/21/19 03/21/19 Range/Units 14:11 18:28 19:32 WBC (4.5-11.0) K/mm3 Hgb (11.8-15.2) gm/dl Hct (35.5-45.6) % RDW (13.2-15.2) % Plt Count (140-440) K/mm3 POC ABG pH 7.293 L (7.35-7.45) POC ABG pO2 (80-105) Sodium (137-145) mmol/L Potassium (3.6-5.0) mmol/L Chloride (98-107) mmol/L Carbon Dioxide (22-30) mmol/L BUN (9-20) mg/dL Creatinine (0.8-1.5) mg/dL Glucose (75-100) mg/dL POC Glucose 153 H (70-105) Lactic Acid 2.10 H* (0.7-2.0) mmol/L Calcium (8.4-10.2) mg/dL Total Bilirubin (0.1-1.2) mg/dL AST (5-40) units/L ALT (7-56) units/L Alkaline Phosphatase (35-129) units/L Total Protein (6.3-8.2) g/dL Albumin (3.9-5) g/dL 03/21/19 03/22/19 03/22/19 Range/Units 23:38 05:08 05:51 WBC (4.5-11.0) K/mm3 Hgb (11.8-15.2) gm/dl Hct (35.5-45.6) % RDW (13.2-15.2) % Plt Count (140-440) K/mm3 POC ABG pH 7.283 L (7.35-7.45) POC ABG pO2 53 L (80-105) Sodium (137-145) mmol/L Potassium (3.6-5.0) mmol/L Chloride (98-107) mmol/L Carbon Dioxide (22-30) mmol/L BUN (9-20) mg/dL Creatinine (0.8-1.5) mg/dL Glucose (75-100) mg/dL POC Glucose 149 H 131 H (70-105) Lactic Acid (0.7-2.0) mmol/L Calcium (8.4-10.2) mg/dL Total Bilirubin (0.1-1.2) mg/dL AST (5-40) units/L ALT (7-56) units/L Alkaline Phosphatase (35-129) units/L Total Protein (6.3-8.2) g/dL Albumin (3.9-5) g/dL 03/22/19 03/22/19 Range/Units 08:00 08:00 WBC 36.7 H (4.5-11.0) K/mm3 Hgb 11.0 L (11.8-15.2) gm/dl Hct 33.5 L (35.5-45.6) % RDW 15.5 H (13.2-15.2) % Plt Count 43 L (140-440) K/mm3 POC ABG pH (7.35-7.45) POC ABG pO2 (80-105) Sodium 132 L (137-145) mmol/L Potassium 5.6 H (3.6-5.0) mmol/L Chloride 89.6 L (98-107) mmol/L Carbon Dioxide 20 L (22-30) mmol/L BUN 101 H (9-20) mg/dL Creatinine 7.4 H (0.8-1.5) mg/dL Glucose 124 H (75-100) mg/dL POC Glucose (70-105) Lactic Acid (0.7-2.0) mmol/L Calcium 5.2 L* (8.4-10.2) mg/dL Total Bilirubin 2.80 H (0.1-1.2) mg/dL AST 119 H (5-40) units/L ALT 86 H (7-56) units/L Alkaline Phosphatase 245 H (35-129) units/L Total Protein 5.6 L (6.3-8.2) g/dL Albumin 2.5 L (3.9-5) g/dL - Imaging and cardiology Chest x-ray: report reviewed, image reviewed (increasing RLL opacity)
[2019-03-22 11:31] LABS: Band Neutrophils # (Manual) 2.2 K/mm3; Basophils % (Manual) 0 % (0.0-1.8); Eosinophils % (Manual) 0 % (0.0-4.3); Monocytes % (Manual) 0 % (0.0-7.3); Total Cells Counted 100
--- NOTE | 2019-03-22 11:34 | Progress Note ---
Assessment and Plan Severe sepsis with shock. Right axilla abscess versus localized pannus/fatty collection. Acute hypoxemic respiratory failure, on mechanical ventilator support. Likely aspiration pneumonia, bilateral. Morbid obesity. Rhabdomyolysis. Acute kidney injury. Leukocytosis. Morbid obesity. Metabolic acidosis. Lactic acidosis. Hypomagnesemia. Elevated serum transaminases/possible shock liver. Acute encephalopathy, toxic metabolic versus anoxic - keep on PRVC/AC but increase rate to 25 and increase Peep to 16 cm H2O - reduce FiO2 to 90% (continue to wean FiO2 for sats > 90%) - stop vasopressin - continue to wean Levophed for target MAP > 65 mmHg - reglan started at 5 mg I.V. q6h yesterday - resume tube feeds at 10 cc/hr - discontinue D5W drip - pull femoral A-line today - discontinued Femoral CVL yesterday - continue HD/UF per nephrology prescription - VAP bundle addressed - continue daily SAT's and SBT assessment as tolerated - target sedation for RASS 0 to -1 - prn analgesia per CPOT score - continue HD/UF per nephrology prescription and for toxin and volume control - prn supportive blood transfusions to keep serum Hb > 7.0 - Monitor hemodynamics closely - Transfuse PRBC's to keep HgB > 7g/dL - continue enteral nutrition as tolerated (NPO for now; trickle feeding and ad vuong once more stable) - continue empiric broad spectrum antiinfective's per ID recommendations (de- escalate based on clinical and microbiologic data) - continue mobility protocols and off loading as tolerated for pressure ulcer prophylaxis - continue to avoid nephrotoxins, adjust all medications for GFR and CRCL - continue GI & VTE prophylaxis with - accuchecks with glycemic control per SSI for target BG of 140-180 mg/dl acutely - continue other care per attending / other consultants ... attempted to reach his brother on the phone unsuccessfully to update him ... re-evaluate in am & prn CONDITION: CRITICAL PROGNOSIS: VERY GUARDED CODE STATUS: FULL CODE Discussed extensively with RT/RN and care team in ICU IDT rounds The high probability of a clinically significant, sudden or life threatening deterioration of the [respiratory, renal and Cardiac] system's' required my full and direct attention, intervention and personal management. The aggregate critical care time was 37 minutes. This time is in addition to time spent performing reported procedures but includes the following: [x] Data Review and interpretation [x] Patient assessment and monitoring of vital signs [x] Documentation [x] Medication orders and management Subjective Date of service: 03/22/19 Principal diagnosis: Septic Shock; Ac. hypoxemic resp failure; Renzo. PNA; Rhabdomyolysis; RUBEN Interval history: Patient is seen today for: Severe sepsis with shock; Acute hypoxemic respiratory failure; Aspiration pneumonia; Morbid obesity; Rhabdomyolysis; Acute kidney injury; Morbid obesity; Elevated serum transaminases/possible shock liver; Acute encephalopathy (Toxic/Met) Seen and examined at bedside; 24hour events reviewed; nursing and respiratory care staff consulted; no adverse overnight events reported to me; resting peacefully in bed; remains on vasopressors but levophed down to 8 mics/min; also on vasopressin; FiO2's running low most of this morning; not following prompts but moving all extremities ; + emesis last night and tube feeds stopped; none since. Objective Vital Signs - 12hr 03/21/19 03/21/19 03/22/19 23:45 23:47 00:00 Temperature 97.5 F L Pulse Rate 62 60 60 Pulse Rate [ Anterior Bilateral Throughout] Pulse Rate [ 60 From Monitor] Respiratory 20 14 Rate Respiratory Rate [Anterior Bilateral Throughout] Blood Pressure 94/55 101/65 101/47 O2 Sat by Pulse 95 96 95 Oximetry 03/22/19 03/22/19 03/22/19 00:15 00:30 00:45 Temperature Pulse Rate 63 64 63 Pulse Rate [ Anterior Bilateral Throughout] Pulse Rate [ From Monitor] Respiratory 12 15 21 Rate Respiratory Rate [Anterior Bilateral Throughout] Blood Pressure 101/47 101/44 101/44 O2 Sat by Pulse 95 95 94 Oximetry 03/22/19 03/22/19 03/22/19 01:00 01:15 01:30 Temperature Pulse Rate 63 62 63 Pulse Rate [ Anterior Bilateral Throughout] Pulse Rate [ From Monitor] Respiratory 21 22 18 Rate Respiratory Rate [Anterior Bilateral Throughout] Blood Pressure 97/49 97/49 100/50 O2 Sat by Pulse 94 95 94 Oximetry 03/22/19 03/22/19 03/22/19 01:45 02:00 02:15 Temperature Pulse Rate 61 66 72 Pulse Rate [ Anterior Bilateral Throughout] Pulse Rate [ 63 From Monitor] Respiratory 18 21 14 Rate Respiratory Rate [Anterior Bilateral Throughout] Blood Pressure 100/50 103/49 103/49 O2 Sat by Pulse 94 94 94 Oximetry 03/22/19 03/22/19 03/22/19 02:31 02:45 03:01 Temperature Pulse Rate 77 111 H 115 H Pulse Rate [ Anterior Bilateral Throughout] Pulse Rate [ From Monitor] Respiratory 17 21 20 Rate Respiratory Rate [Anterior Bilateral Throughout] Blood Pressure 103/49 103/49 103/49 O2 Sat by Pulse 94 91 92 Oximetry 03/22/19 03/22/19 03/22/19 03:15 03:30 03:45 Temperature Pulse Rate 75 127 H 120 H Pulse Rate [ Anterior Bilateral Throughout] Pulse Rate [ From Monitor] Respiratory 24 20 24 Rate Respiratory Rate [Anterior Bilateral Throughout] Blood Pressure 131/78 130/81 130/81 O2 Sat by Pulse 89 88 86 Oximetry 03/22/19 03/22/19 03/22/19 04:00 04:01 04:15 Temperature 98.9 F Pulse Rate 85 112 H 121 H Pulse Rate [ Anterior Bilateral Throughout] Pulse Rate [ 108 H From Monitor] Respiratory 22 27 H 28 H Rate Respiratory Rate [Anterior Bilateral Throughout] Blood Pressure 114/75 114/75 O2 Sat by Pulse 95 86 87 Oximetry 03/22/19 03/22/19 03/22/19 04:31 04:35 04:45 Temperature Pulse Rate 111 H 122 H Pulse Rate [ 108 H Anterior Bilateral Throughout] Pulse Rate [ From Monitor] Respiratory 24 17 Rate Respiratory 22 Rate [Anterior Bilateral Throughout] Blood Pressure 118/69 118/69 O2 Sat by Pulse 82 L 91 Oximetry 03/22/19 03/22/19 03/22/19 05:01 05:07 05:15 Temperature Pulse Rate 112 H 106 H 83 Pulse Rate [ Anterior Bilateral Throughout] Pulse Rate [ From Monitor] Respiratory 17 22 Rate Respiratory Rate [Anterior Bilateral Throughout] Blood Pressure 110/63 122/69 110/63 O2 Sat by Pulse 88 91 83 L Oximetry 03/22/19 03/22/19 03/22/19 05:31 05:45 06:01 Temperature Pulse Rate 86 120 H 129 H Pulse Rate [ Anterior Bilateral Throughout] Pulse Rate [ From Monitor] Respiratory 21 20 28 H Rate Respiratory Rate [Anterior Bilateral Throughout] Blood Pressure 62/26 62/26 62/26 O2 Sat by Pulse 84 84 72 L Oximetry 03/22/19 03/22/19 03/22/19 06:15 06:31 06:45 Temperature Pulse Rate 76 86 100 H Pulse Rate [ Anterior Bilateral Throughout] Pulse Rate [ From Monitor] Respiratory 22 20 18 Rate Respiratory Rate [Anterior Bilateral Throughout] Blood Pressure 62/26 107/62 107/62 O2 Sat by Pulse 84 87 86 Oximetry 03/22/19 03/22/19 03/22/19 07:00 07:15 07:30 Temperature Pulse Rate 113 H 106 H 110 H Pulse Rate [ Anterior Bilateral Throughout] Pulse Rate [ From Monitor] Respiratory 14 13 14 Rate Respiratory Rate [Anterior Bilateral Throughout] Blood Pressure 111/66 107/62 110/51 O2 Sat by Pulse 88 88 87 Oximetry 03/22/19 03/22/19 03/22/19 07:43 07:45 07:54 Temperature Pulse Rate 78 112 H Pulse Rate [ 75 Anterior Bilateral Throughout] Pulse Rate [ From Monitor] Respiratory 20 Rate Respiratory 20 Rate [Anterior Bilateral Throughout] Blood Pressure 110/51 111/66 O2 Sat by Pulse 87 87 Oximetry 03/22/19 03/22/19 03/22/19 08:00 08:15 08:30 Temperature 98.9 F Pulse Rate 119 H 112 H 126 H Pulse Rate [ Anterior Bilateral Throughout] Pulse Rate [ 119 H From Monitor] Respiratory 23 25 H 19 Rate Respiratory Rate [Anterior Bilateral Throughout] Blood Pressure 111/61 110/51 118/67 O2 Sat by Pulse 95 85 83 L Oximetry 03/22/19 03/22/19 03/22/19 08:45 09:00 09:15 Temperature Pulse Rate 115 H 120 H 102 H Pulse Rate [ Anterior Bilateral Throughout] Pulse Rate [ From Monitor] Respiratory 19 22 22 Rate Respiratory Rate [Anterior Bilateral Throughout] Blood Pressure 118/67 104/64 104/64 O2 Sat by Pulse 92 87 90 Oximetry 03/22/19 03/22/19 03/22/19 09:30 09:45 10:00 Temperature Pulse Rate 80 77 76 Pulse Rate [ Anterior Bilateral Throughout] Pulse Rate [ From Monitor] Respiratory 24 23 24 Rate Respiratory Rate [Anterior Bilateral Throughout] Blood Pressure 106/64 106/64 109/47 O2 Sat by Pulse 87 89 87 Oximetry 03/22/19 03/22/19 03/22/19 10:15 10:30 10:45 Temperature Pulse Rate 76 111 H 124 H Pulse Rate [ Anterior Bilateral Throughout] Pulse Rate [ From Monitor] Respiratory 24 22 21 Rate Respiratory Rate [Anterior Bilateral Throughout] Blood Pressure 109/47 114/93 109/47 O2 Sat by Pulse 88 86 82 L Oximetry 03/22/19 03/22/19 11:00 11:14 Temperature Pulse Rate 113 H 128 H Pulse Rate [ Anterior Bilateral Throughout] Pulse Rate [ From Monitor] Respiratory 20 Rate Respiratory Rate [Anterior Bilateral Throughout] Blood Pressure 111/84 111/84 O2 Sat by Pulse 83 L 94 Oximetry Constitutional: appears uncomfortable, other (middle aged morbidly obese CM, normocephalic with incresed respiratory effort on MVS) Eyes: icteric ENT: oropharynx moist, other (ETT 23-24 cm PEDRO) Neck: supple, no lymphadenopathy, no JVD, other (large neck circumference) Effort: mildly labored Ascultation: Bilateral: diminished breath sounds, rales Percussion: Bilateral: not dull Cardiovascular: regular rate and rhythm Gastrointestinal: hypoactive bowel sounds, soft, non-tender, non-distended Integumentary: normal Extremities: no cyanosis, pink and warm, pulses normal, no ischemia or petechiae, edema Neurologic: non-focal exam (grossly), pupils equal and round, CN II-XII normal, motor strength normal and Psychiatric: other (inable to assess) CBC and BMP: 03/22/19 08:00 03/22/19 08:00 ABG, PT/INR, D-dimer: ABG POC ABG pH 7.283 (7.35-7.45) L 03/22/19 05:08 ABG pH 7.265 pH Units (7.350-7.450) L 03/19/19 05:35 POC ABG pCO2 42.0 (35-45) 03/22/19 05:08 ABG pCO2 45.5 mm Hg 03/19/19 05:35 POC ABG pO2 53 (80-105) L 03/22/19 05:08 ABG pO2 35.4 mm Hg (80.0-90.0) L* 03/19/19 05:35 POC ABG HCO3 19.9 (22-26 mml/L) 03/22/19 05:08 POC ABG Total CO2 21 (23-27mmol/L) 03/22/19 05:08 POC ABG O2 Sat 83 03/22/19 05:08 ABG O2 Saturation 54.4 % (95.0-99.0) L 03/19/19 05:35 PT/INR, D-dimer PT 15.9 Sec. (12.2-14.9) H 03/16/19 17:05 INR 1.30 (0.87-1.13) H 03/16/19 17:05 Abnormal lab findings: Abnormal Labs 03/16/19 03/16/19 03/16/19 15:32 16:03 16:05 WBC 27.0 H RBC 5.55 H Hgb 15.7 H Hct 47.1 H RDW Plt Count 75 L Seg Neuts % (Manual) 85.0 H Lymphocytes % (Manual) 2.0 L Monocytes % (Manual) Nucleated RBC % Seg Neutrophils # Seg Neutrophils # Man 23.0 H Lymphocytes # (Manual) 0.5 L Monocytes # (Manual) PT INR POC ABG pH ABG pH POC ABG pCO2 POC ABG pO2 ABG pO2 ABG O2 Saturation ABG Base Excess ABG Hemoglobin Oxyhemoglobin Sodium 127 L Potassium Chloride 87.8 L Carbon Dioxide 17 L BUN 49 H Creatinine 5.8 H Glucose 150 H POC Glucose 118 H Lactic Acid Calcium 6.6 L Phosphorus Magnesium 1.10 L Total Bilirubin Direct Bilirubin AST ALT Alkaline Phosphatase Total Creatine Kinase 62482 H CK-MB (CK-2) Troponin T C-Reactive Protein Total Protein Albumin Triglycerides LDL Cholesterol Direct HDL Cholesterol Free T4 Urine WBC (Auto) Urine Creatinine Salicylates Acetaminophen 03/16/19 03/16/19 03/16/19 16:59 17:05 17:05 WBC RBC Hgb Hct RDW Plt Count Seg Neuts % (Manual) Lymphocytes % (Manual) Monocytes % (Manual) Nucleated RBC % Seg Neutrophils # Seg Neutrophils # Man Lymphocytes # (Manual) Monocytes # (Manual) PT INR POC ABG pH 7.297 L ABG pH POC ABG pCO2 33.0 L POC ABG pO2 ABG pO2 ABG O2 Saturation ABG Base Excess ABG Hemoglobin Oxyhemoglobin Sodium Potassium Chloride Carbon Dioxide BUN Creatinine Glucose POC Glucose Lactic Acid Calcium Phosphorus Magnesium Total Bilirubin Direct Bilirubin AST ALT Alkaline Phosphatase Total Creatine Kinase 55793 H CK-MB (CK-2) 83.1 H Troponin T C-Reactive Protein Total Protein Albumin Triglycerides LDL Cholesterol Direct HDL Cholesterol Free T4 0.72 L Urine WBC (Auto) Urine Creatinine Salicylates Acetaminophen 03/16/19 03/16/19 03/16/19 17:05 17:05 17:05 WBC RBC Hgb Hct RDW Plt Count Seg Neuts % (Manual) Lymphocytes % (Manual) Monocytes % (Manual) Nucleated RBC % Seg Neutrophils # Seg Neutrophils # Man Lymphocytes # (Manual) Monocytes # (Manual) PT INR POC ABG pH ABG pH POC ABG pCO2 POC ABG pO2 ABG pO2 ABG O2 Saturation ABG Base Excess ABG Hemoglobin Oxyhemoglobin Sodium Potassium Chloride Carbon Dioxide BUN Creatinine Glucose POC Glucose Lactic Acid 5.10 H* Calcium Phosphorus Magnesium Total Bilirubin Direct Bilirubin AST ALT Alkaline Phosphatase Total Creatine Kinase CK-MB (CK-2) Troponin T C-Reactive Protein Total Protein Albumin Triglycerides LDL Cholesterol Direct HDL Cholesterol Free T4 Urine WBC (Auto) Urine Creatinine Salicylates < 0.3 L Acetaminophen < 5.0 L 03/16/19 03/16/19 03/16/19 17:05 17:05 20:35 WBC RBC Hgb Hct RDW Plt Count Seg Neuts % (Manual) Lymphocytes % (Manual) Monocytes % (Manual) Nucleated RBC % Seg Neutrophils # Seg Neutrophils # Man Lymphocytes # (Manual) Monocytes # (Manual) PT 15.9 H INR 1.30 H POC ABG pH ABG pH POC ABG pCO2 POC ABG pO2 ABG pO2 ABG O2 Saturation ABG Base Excess ABG Hemoglobin Oxyhemoglobin Sodium Potassium Chloride Carbon Dioxide BUN Creatinine Glucose POC Glucose Lactic Acid 3.30 H* Calcium Phosphorus Magnesium Total Bilirubin 6.20 H Direct Bilirubin 5.9 H AST 800 H ALT 120 H Alkaline Phosphatase Total Creatine Kinase CK-MB (CK-2) Troponin T C-Reactive Protein Total Protein 4.4 L Albumin 2.4 L Triglycerides LDL Cholesterol Direct HDL Cholesterol Free T4 Urine WBC (Auto) Urine Creatinine Salicylates Acetaminophen 03/16/19 03/16/19 03/16/19 21:45 22:32 Unknown WBC RBC Hgb Hct RDW Plt Count Seg Neuts % (Manual) Lymphocytes % (Manual) Monocytes % (Manual) Nucleated RBC % Seg Neutrophils # Seg Neutrophils # Man Lymphocytes # (Manual) Monocytes # (Manual) PT INR POC ABG pH ABG pH POC ABG pCO2 POC ABG pO2 ABG pO2 ABG O2 Saturation ABG Base Excess ABG Hemoglobin Oxyhemoglobin Sodium Potassium Chloride Carbon Dioxide BUN Creatinine Glucose POC Glucose Lactic Acid 3.30 H* 3.00 H* Calcium Phosphorus Magnesium Total Bilirubin Direct Bilirubin AST ALT Alkaline Phosphatase Total Creatine Kinase CK-MB (CK-2) Troponin T 0.047 H D C-Reactive Protein Total Protein Albumin Triglycerides 395 H LDL Cholesterol Direct 10 L HDL Cholesterol 7 L Free T4 Urine WBC (Auto) Urine Creatinine Salicylates Acetaminophen 03/17/19 03/17/19 03/17/19 03:45 03:45 03:45 WBC RBC Hgb Hct RDW Plt Count Seg Neuts % (Manual) Lymphocytes % (Manual) Monocytes % (Manual) Nucleated RBC % Seg Neutrophils # Seg Neutrophils # Man Lymphocytes # (Manual) Monocytes # (Manual) PT INR POC ABG pH ABG pH POC ABG pCO2 POC ABG pO2 ABG pO2 ABG O2 Saturation ABG Base Excess ABG Hemoglobin Oxyhemoglobin Sodium 131 L Potassium Chloride 88.9 L Carbon Dioxide BUN 53 H Creatinine 7.1 H Glucose POC Glucose Lactic Acid 4.10 H* Calcium 5.4 L* D Phosphorus 7.30 H Magnesium 1.60 L Total Bilirubin 5.90 H Direct Bilirubin AST 801 H ALT 109 H Alkaline Phosphatase Total Creatine Kinase 21963 H 45077 H CK-MB (CK-2) 41.5 H Troponin T 0.054 H C-Reactive Protein Total Protein 4.5 L Albumin 2.0 L Triglycerides LDL Cholesterol Direct HDL Cholesterol Free T4 Urine WBC (Auto) Urine Creatinine Salicylates Acetaminophen 03/17/19 03/17/19 03/17/19 05:47 07:16 07:16 WBC RBC Hgb Hct RDW Plt Count Seg Neuts % (Manual) Lymphocytes % (Manual) Monocytes % (Manual) Nucleated RBC % Seg Neutrophils # Seg Neutrophils # Man Lymphocytes # (Manual) Monocytes # (Manual) PT INR POC ABG pH 7.193 L ABG pH POC ABG pCO2 45.2 H POC ABG pO2 65 L ABG pO2 ABG O2 Saturation ABG Base Excess ABG Hemoglobin Oxyhemoglobin Sodium Potassium Chloride Carbon Dioxide BUN Creatinine Glucose POC Glucose Lactic Acid 5.50 H* Calcium Phosphorus Magnesium Total Bilirubin Direct Bilirubin AST ALT Alkaline Phosphatase Total Creatine Kinase 24206 H CK-MB (CK-2) 54.3 H Troponin T 0.058 H C-Reactive Protein Total Protein Albumin Triglycerides LDL Cholesterol Direct HDL Cholesterol Free T4 Urine WBC (Auto) Urine Creatinine Salicylates Acetaminophen 03/17/19 03/17/19 03/17/19 11:52 12:51 13:01 WBC RBC Hgb Hct RDW Plt Count Seg Neuts % (Manual) Lymphocytes % (Manual) Monocytes % (Manual) Nucleated RBC % Seg Neutrophils # Seg Neutrophils # Man Lymphocytes # (Manual) Monocytes # (Manual) PT INR POC ABG pH 7.154 L ABG pH POC ABG pCO2 34.3 L POC ABG pO2 73 L ABG pO2 ABG O2 Saturation ABG Base Excess ABG Hemoglobin Oxyhemoglobin Sodium Potassium Chloride Carbon Dioxide BUN Creatinine Glucose POC Glucose 60 L Lactic Acid 8.20 H* Calcium Phosphorus Magnesium Total Bilirubin Direct Bilirubin AST ALT Alkaline Phosphatase Total Creatine Kinase CK-MB (CK-2) Troponin T C-Reactive Protein Total Protein Albumin Triglycerides LDL Cholesterol Direct HDL Cholesterol Free T4 Urine WBC (Auto) Urine Creatinine Salicylates Acetaminophen 03/17/19 03/17/19 03/17/19 14:37 14:37 14:37 WBC 29.3 H RBC Hgb Hct RDW 15.8 H Plt Count 45 L Seg Neuts % (Manual) 81.0 H Lymphocytes % (Manual) 1.0 L Monocytes % (Manual) 15.0 H Nucleated RBC % Seg Neutrophils # Seg Neutrophils # Man 23.7 H Lymphocytes # (Manual) 0.3 L Monocytes # (Manual) 4.4 H PT INR POC ABG pH ABG pH POC ABG pCO2 POC ABG pO2 ABG pO2 ABG O2 Saturation ABG Base Excess ABG Hemoglobin Oxyhemoglobin Sodium Potassium Chloride Carbon Dioxide BUN Creatinine Glucose POC Glucose Lactic Acid 4.90 H* Calcium Phosphorus Magnesium Total Bilirubin Direct Bilirubin AST ALT Alkaline Phosphatase Total Creatine Kinase CK-MB (CK-2) Troponin T C-Reactive Protein 24.90 H Total Protein Albumin Triglycerides LDL Cholesterol Direct HDL Cholesterol Free T4 Urine WBC (Auto) Urine Creatinine Salicylates Acetaminophen 03/17/19 03/17/19 03/17/19 16:05 16:05 17:02 WBC RBC Hgb Hct RDW Plt Count Seg Neuts % (Manual) Lymphocytes % (Manual) Monocytes % (Manual) Nucleated RBC % Seg Neutrophils # Seg Neutrophils # Man Lymphocytes # (Manual) Monocytes # (Manual) PT INR POC ABG pH 7.183 L ABG pH POC ABG pCO2 POC ABG pO2 65 L ABG pO2 ABG O2 Saturation ABG Base Excess ABG Hemoglobin Oxyhemoglobin Sodium Potassium Chloride Carbon Dioxide BUN Creatinine Glucose POC Glucose Lactic Acid Calcium Phosphorus Magnesium Total Bilirubin Direct Bilirubin AST ALT Alkaline Phosphatase Total Creatine Kinase CK-MB (CK-2) Troponin T C-Reactive Protein Total Protein Albumin Triglycerides LDL Cholesterol Direct HDL Cholesterol Free T4 Urine WBC (Auto) 30.0 H Urine Creatinine 106.6 H Salicylates Acetaminophen 03/18/19 03/18/19 03/18/19 05:12 05:16 05:53 WBC RBC Hgb Hct RDW Plt Count Seg Neuts % (Manual) Lymphocytes % (Manual) Monocytes % (Manual) Nucleated RBC % Seg Neutrophils # Seg Neutrophils # Man Lymphocytes # (Manual) Monocytes # (Manual) PT INR POC ABG pH 7.257 L ABG pH POC ABG pCO2 31.6 L POC ABG pO2 69 L ABG pO2 ABG O2 Saturation ABG Base Excess ABG Hemoglobin Oxyhemoglobin Sodium Potassium Chloride Carbon Dioxide BUN Creatinine Glucose POC Glucose 141 H Lactic Acid 5.00 H* Calcium Phosphorus Magnesium Total Bilirubin Direct Bilirubin AST ALT Alkaline Phosphatase Total Creatine Kinase CK-MB (CK-2) Troponin T C-Reactive Protein Total Protein Albumin Triglycerides LDL Cholesterol Direct HDL Cholesterol Free T4 Urine WBC (Auto) Urine Creatinine Salicylates Acetaminophen 03/18/19 03/18/19 03/18/19 06:57 08:40 08:40 WBC 31.7 H RBC Hgb Hct RDW 15.5 H Plt Count 35 L Seg Neuts % (Manual) Lymphocytes % (Manual) Monocytes % (Manual) Nucleated RBC % Seg Neutrophils # Seg Neutrophils # Man Lymphocytes # (Manual) Monocytes # (Manual) PT INR POC ABG pH ABG pH POC ABG pCO2 POC ABG pO2 ABG pO2 ABG O2 Saturation ABG Base Excess ABG Hemoglobin Oxyhemoglobin Sodium 132 L Potassium 5.5 H D Chloride 88.5 L Carbon Dioxide 18 L BUN 71 H Creatinine 8.1 H Glucose 205 H POC Glucose Lactic Acid 5.00 H* Calcium 4.1 L* D Phosphorus Magnesium 2.40 H Total Bilirubin 7.50 H Direct Bilirubin AST 1088 H ALT 159 H Alkaline Phosphatase 190 H Total Creatine Kinase 785283 H CK-MB (CK-2) Troponin T C-Reactive Protein Total Protein 4.7 L Albumin 1.8 L Triglycerides LDL Cholesterol Direct HDL Cholesterol Free T4 Urine WBC (Auto) Urine Creatinine Salicylates Acetaminophen 03/18/19 03/18/19 03/18/19 12:33 12:50 13:19 WBC RBC Hgb Hct RDW Plt Count Seg Neuts % (Manual) Lymphocytes % (Manual) Monocytes % (Manual) Nucleated RBC % Seg Neutrophils # Seg Neutrophils # Man Lymphocytes # (Manual) Monocytes # (Manual) PT INR POC ABG pH 7.282 L ABG pH POC ABG pCO2 POC ABG pO2 67 L ABG pO2 ABG O2 Saturation ABG Base Excess ABG Hemoglobin Oxyhemoglobin Sodium Potassium Chloride Carbon Dioxide BUN Creatinine Glucose POC Glucose 129 H Lactic Acid 3.30 H* Calcium Phosphorus Magnesium Total Bilirubin Direct Bilirubin AST ALT Alkaline Phosphatase Total Creatine Kinase CK-MB (CK-2) Troponin T C-Reactive Protein Total Protein Albumin Triglycerides LDL Cholesterol Direct HDL Cholesterol Free T4 Urine WBC (Auto) Urine Creatinine Salicylates Acetaminophen 03/18/19 03/18/19 03/18/19 13:19 16:50 18:11 WBC RBC Hgb Hct RDW Plt Count Seg Neuts % (Manual) Lymphocytes % (Manual) Monocytes % (Manual) Nucleated RBC % Seg Neutrophils # Seg Neutrophils # Man Lymphocytes # (Manual) Monocytes # (Manual) PT INR POC ABG pH ABG pH POC ABG pCO2 POC ABG pO2 59 L ABG pO2 ABG O2 Saturation ABG Base Excess ABG Hemoglobin Oxyhemoglobin Sodium Potassium Chloride Carbon Dioxide BUN Creatinine Glucose POC Glucose 151 H Lactic Acid Calcium 4.2 L* Phosphorus Magnesium Total Bilirubin Direct Bilirubin AST ALT Alkaline Phosphatase Total Creatine Kinase 793092 H CK-MB (CK-2) Troponin T C-Reactive Protein Total Protein Albumin Triglycerides LDL Cholesterol Direct HDL Cholesterol Free T4 Urine WBC (Auto) Urine Creatinine Salicylates Acetaminophen 03/18/19 03/18/19 03/19/19 18:20 23:39 01:42 WBC RBC Hgb Hct RDW Plt Count Seg Neuts % (Manual) Lymphocytes % (Manual) Monocytes % (Manual) Nucleated RBC % Seg Neutrophils # Seg Neutrophils # Man Lymphocytes # (Manual) Monocytes # (Manual) PT INR POC ABG pH 7.345 L ABG pH 7.285 L POC ABG pCO2 POC ABG pO2 59 L ABG pO2 44.0 L ABG O2 Saturation 70.9 L ABG Base Excess -5.7 L ABG Hemoglobin 11.9 L Oxyhemoglobin 69.6 L Sodium Potassium Chloride Carbon Dioxide BUN Creatinine Glucose POC Glucose 152 H Lactic Acid Calcium Phosphorus Magnesium Total Bilirubin Direct Bilirubin AST ALT Alkaline Phosphatase Total Creatine Kinase CK-MB (CK-2) Troponin T C-Reactive Protein Total Protein Albumin Triglycerides LDL Cholesterol Direct HDL Cholesterol Free T4 Urine WBC (Auto) Urine Creatinine Salicylates Acetaminophen 03/19/19 03/19/19 03/19/19 04:00 04:00 05:35 WBC 36.5 H RBC Hgb Hct RDW 15.8 H Plt Count 35 L Seg Neuts % (Manual) Lymphocytes % (Manual) Monocytes % (Manual) Nucleated RBC % Seg Neutrophils # Seg Neutrophils # Man Lymphocytes # (Manual) Monocytes # (Manual) PT INR POC ABG pH ABG pH 7.265 L POC ABG pCO2 POC ABG pO2 ABG pO2 35.4 L* ABG O2 Saturation 54.4 L ABG Base Excess -6.7 L ABG Hemoglobin 12.9 L Oxyhemoglobin 53.4 L Sodium 132 L Potassium 5.7 H Chloride 89.8 L Carbon Dioxide 19 L BUN 62 H Creatinine 6.4 H Glucose 151 H POC Glucose Lactic Acid Calcium 5.2 L* D Phosphorus Magnesium Total Bilirubin 7.80 H Direct Bilirubin AST 682 H ALT 130 H Alkaline Phosphatase 167 H Total Creatine Kinase CK-MB (CK-2) Troponin T C-Reactive Protein Total Protein 4.8 L Albumin 2.3 L Triglycerides LDL Cholesterol Direct HDL Cholesterol Free T4 Urine WBC (Auto) Urine Creatinine Salicylates Acetaminophen 03/19/19 03/19/19 03/19/19 05:49 09:16 09:50 WBC RBC Hgb Hct RDW Plt Count Seg Neuts % (Manual) Lymphocytes % (Manual) Monocytes % (Manual) Nucleated RBC % Seg Neutrophils # Seg Neutrophils # Man Lymphocytes # (Manual) Monocytes # (Manual) PT INR POC ABG pH 7.222 L ABG pH POC ABG pCO2 56.6 H POC ABG pO2 ABG pO2 ABG O2 Saturation ABG Base Excess ABG Hemoglobin Oxyhemoglobin Sodium Potassium Chloride Carbon Dioxide BUN Creatinine Glucose POC Glucose 154 H Lactic Acid 2.70 H* Calcium Phosphorus Magnesium Total Bilirubin Direct Bilirubin AST ALT Alkaline Phosphatase Total Creatine Kinase CK-MB (CK-2) Troponin T C-Reactive Protein Total Protein Albumin Triglycerides LDL Cholesterol Direct HDL Cholesterol Free T4 Urine WBC (Auto) Urine Creatinine Salicylates Acetaminophen 03/19/19 03/19/19 03/19/19 09:50 11:28 17:58 WBC RBC Hgb Hct RDW Plt Count Seg Neuts % (Manual) Lymphocytes % (Manual) Monocytes % (Manual) Nucleated RBC % Seg Neutrophils # Seg Neutrophils # Man Lymphocytes # (Manual) Monocytes # (Manual) PT INR POC ABG pH 7.250 L ABG pH POC ABG pCO2 52.6 H POC ABG pO2 ABG pO2 ABG O2 Saturation ABG Base Excess ABG Hemoglobin Oxyhemoglobin Sodium Potassium Chloride Carbon Dioxide BUN Creatinine Glucose POC Glucose 160 H Lactic Acid Calcium Phosphorus Magnesium Total Bilirubin Direct Bilirubin AST ALT Alkaline Phosphatase Total Creatine Kinase 85718 H CK-MB (CK-2) Troponin T C-Reactive Protein Total Protein Albumin Triglycerides LDL Cholesterol Direct HDL Cholesterol Free T4 Urine WBC (Auto) Urine Creatinine Salicylates Acetaminophen 03/19/19 03/19/19 03/20/19 19:48 21:03 02:16 WBC RBC Hgb Hct RDW Plt Count Seg Neuts % (Manual) Lymphocytes % (Manual) Monocytes % (Manual) Nucleated RBC % Seg Neutrophils # Seg Neutrophils # Man Lymphocytes # (Manual) Monocytes # (Manual) PT INR POC ABG pH 7.279 L ABG pH POC ABG pCO2 50.3 H POC ABG pO2 129 H ABG pO2 ABG O2 Saturation ABG Base Excess ABG Hemoglobin Oxyhemoglobin Sodium Potassium Chloride Carbon Dioxide BUN Creatinine Glucose POC Glucose 119 H 119 H Lactic Acid Calcium Phosphorus Magnesium Total Bilirubin Direct Bilirubin AST ALT Alkaline Phosphatase Total Creatine Kinase CK-MB (CK-2) Troponin T C-Reactive Protein Total Protein Albumin Triglycerides LDL Cholesterol Direct HDL Cholesterol Free T4 Urine WBC (Auto) Urine Creatinine Salicylates Acetaminophen 03/20/19 03/20/19 03/20/19 04:23 05:05 09:30 WBC 36.3 H RBC Hgb Hct RDW 15.5 H Plt Count 29 L Seg Neuts % (Manual) Lymphocytes % (Manual) Monocytes % (Manual) Nucleated RBC % Seg Neutrophils # Seg Neutrophils # Man Lymphocytes # (Manual) Monocytes # (Manual) PT INR POC ABG pH ABG pH POC ABG pCO2 POC ABG pO2 280 H ABG pO2 ABG O2 Saturation ABG Base Excess ABG Hemoglobin Oxyhemoglobin Sodium Potassium Chloride Carbon Dioxide BUN Creatinine Glucose POC Glucose 115 H Lactic Acid Calcium Phosphorus Magnesium Total Bilirubin Direct Bilirubin AST ALT Alkaline Phosphatase Total Creatine Kinase CK-MB (CK-2) Troponin T C-Reactive Protein Total Protein Albumin Triglycerides LDL Cholesterol Direct HDL Cholesterol Free T4 Urine WBC (Auto) Urine Creatinine Salicylates Acetaminophen 03/20/19 03/20/1903/20/19 09:30 09:30 11:34 WBC RBC Hgb Hct RDW Plt Count Seg Neuts % (Manual) Lymphocytes % (Manual) Monocytes % (Manual) Nucleated RBC % Seg Neutrophils # Seg Neutrophils # Man Lymphocytes # (Manual) Monocytes # (Manual) PT INR POC ABG pH ABG pH POC ABG pCO2 POC ABG pO2 ABG pO2 ABG O2 Saturation ABG Base Excess ABG Hemoglobin Oxyhemoglobin Sodium 131 L Potassium Chloride 92.3 L Carbon Dioxide 20 L BUN 68 H Creatinine 6.1 H Glucose 164 H POC Glucose 141 H Lactic Acid Calcium 5.3 L* Phosphorus Magnesium Total Bilirubin 9.50 H Direct Bilirubin AST 381 H ALT 116 H Alkaline Phosphatase 255 H Total Creatine Kinase 80622 H CK-MB (CK-2) Troponin T C-Reactive Protein Total Protein 5.1 L Albumin 2.3 L Triglycerides LDL Cholesterol Direct HDL Cholesterol Free T4 Urine WBC (Auto) Urine Creatinine Salicylates Acetaminophen 03/20/19 03/20/19 03/20/19 14:41 14:45 18:50 WBC RBC Hgb Hct RDW Plt Count Seg Neuts % (Manual) Lymphocytes % (Manual) Monocytes % (Manual) Nucleated RBC % Seg Neutrophils # Seg Neutrophils # Man Lymphocytes # (Manual) Monocytes # (Manual) PT INR POC ABG pH ABG pH POC ABG pCO2 POC ABG pO2 ABG pO2 ABG O2 Saturation ABG Base Excess ABG Hemoglobin Oxyhemoglobin Sodium Potassium Chloride Carbon Dioxide BUN Creatinine Glucose POC Glucose 117 H Lactic Acid 2.90 H* Calcium Phosphorus Magnesium Total Bilirubin Direct Bilirubin AST ALT Alkaline Phosphatase Total Creatine Kinase CK-MB (CK-2) Troponin T C-Reactive Protein 13.30 H Total Protein Albumin Triglycerides LDL Cholesterol Direct HDL Cholesterol Free T4 Urine WBC (Auto) Urine Creatinine Salicylates Acetaminophen 03/20/19 03/21/19 03/21/19 21:55 04:26 04:26 WBC 37.8 H RBC Hgb Hct RDW 15.4 H Plt Count 36 L Seg Neuts % (Manual) 93.0 H Lymphocytes % (Manual) 3.0 L Monocytes % (Manual) Nucleated RBC % 1.0 H Seg Neutrophils # 34.6 H Seg Neutrophils # Man 35.2 H Lymphocytes # (Manual) 1.1 L Monocytes # (Manual) PT INR POC ABG pH ABG pH POC ABG pCO2 POC ABG pO2 ABG pO2 ABG O2 Saturation ABG Base Excess ABG Hemoglobin Oxyhemoglobin Sodium 131 L Potassium Chloride 90.7 L Carbon Dioxide 21 L BUN 69 H Creatinine 5.7 H Glucose 170 H POC Glucose 128 H Lactic Acid Calcium 6.1 L D Phosphorus Magnesium Total Bilirubin 9.50 H Direct Bilirubin AST 308 H ALT 124 H Alkaline Phosphatase 327 H Total Creatine Kinase 53831 H CK-MB (CK-2) Troponin T C-Reactive Protein Total Protein 5.7 L Albumin 2.6 L Triglycerides LDL Cholesterol Direct HDL Cholesterol Free T4 Urine WBC (Auto) Urine Creatinine Salicylates Acetaminophen 03/21/19 03/21/19 03/21/19 05:17 05:39 08:29 WBC RBC Hgb Hct RDW Plt Count Seg Neuts % (Manual) Lymphocytes % (Manual) Monocytes % (Manual) Nucleated RBC % Seg Neutrophils # Seg Neutrophils # Man Lymphocytes # (Manual) Monocytes # (Manual) PT INR POC ABG pH ABG pH POC ABG pCO2 POC ABG pO2 209 H ABG pO2 ABG O2 Saturation ABG Base Excess ABG Hemoglobin Oxyhemoglobin Sodium Potassium Chloride Carbon Dioxide BUN Creatinine Glucose POC Glucose 145 H Lactic Acid Calcium Phosphorus Magnesium Total Bilirubin Direct Bilirubin AST ALT Alkaline Phosphatase Total Creatine Kinase 73019 H CK-MB (CK-2) Troponin T C-Reactive Protein Total Protein Albumin Triglycerides LDL Cholesterol Direct HDL Cholesterol Free T4 Urine WBC (Auto) Urine Creatinine Salicylates Acetaminophen 03/21/19 03/21/19 03/21/19 08:29 11:43 12:00 WBC RBC Hgb Hct RDW Plt Count Seg Neuts % (Manual) Lymphocytes % (Manual) Monocytes % (Manual) Nucleated RBC % Seg Neutrophils # Seg Neutrophils # Man Lymphocytes # (Manual) Monocytes # (Manual) PT INR POC ABG pH ABG pH POC ABG pCO2 POC ABG pO2 ABG pO2 ABG O2 Saturation ABG Base Excess ABG Hemoglobin Oxyhemoglobin Sodium Potassium Chloride Carbon Dioxide BUN Creatinine Glucose POC Glucose 123 H Lactic Acid 2.60 H* 2.20 H* Calcium Phosphorus Magnesium Total Bilirubin Direct Bilirubin AST ALT Alkaline Phosphatase Total Creatine Kinase CK-MB (CK-2) Troponin T C-Reactive Protein Total Protein Albumin Triglycerides LDL Cholesterol Direct HDL Cholesterol Free T4 Urine WBC (Auto) Urine Creatinine Salicylates Acetaminophen 03/21/19 03/21/19 03/21/19 14:11 18:28 19:32 WBC RBC Hgb Hct RDW Plt Count Seg Neuts % (Manual) Lymphocytes % (Manual) Monocytes % (Manual) Nucleated RBC % Seg Neutrophils # Seg Neutrophils # Man Lymphocytes # (Manual) Monocytes # (Manual) PT INR POC ABG pH 7.293 L ABG pH POC ABG pCO2 POC ABG pO2 ABG pO2 ABG O2 Saturation ABG Base Excess ABG Hemoglobin Oxyhemoglobin Sodium Potassium Chloride Carbon Dioxide BUN Creatinine Glucose POC Glucose 153 H Lactic Acid 2.10 H* Calcium Phosphorus Magnesium Total Bilirubin Direct Bilirubin AST ALT Alkaline Phosphatase Total Creatine Kinase CK-MB (CK-2) Troponin T C-Reactive Protein Total Protein Albumin Triglycerides LDL Cholesterol Direct HDL Cholesterol Free T4 Urine WBC (Auto) Urine Creatinine Salicylates Acetaminophen 03/21/19 03/22/19 03/22/19 23:38 05:08 05:51 WBC RBC Hgb Hct RDW Plt Count Seg Neuts % (Manual) Lymphocytes % (Manual) Monocytes % (Manual) Nucleated RBC % Seg Neutrophils # Seg Neutrophils # Man Lymphocytes # (Manual) Monocytes # (Manual) PT INR POC ABG pH 7.283 L ABG pH POC ABG pCO2 POC ABG pO2 53 L ABG pO2 ABG O2 Saturation ABG Base Excess ABG Hemoglobin Oxyhemoglobin Sodium Potassium Chloride Carbon Dioxide BUN Creatinine Glucose POC Glucose 149 H 131 H Lactic Acid Calcium Phosphorus Magnesium Total Bilirubin Direct Bilirubin AST ALT Alkaline Phosphatase Total Creatine Kinase CK-MB (CK-2) Troponin T C-Reactive Protein Total Protein Albumin Triglycerides LDL Cholesterol Direct HDL Cholesterol Free T4 Urine WBC (Auto) Urine Creatinine Salicylates Acetaminophen 03/22/19 03/22/19 08:00 08:00 WBC 36.7 H RBC Hgb 11.0 L Hct 33.5 L RDW 15.5 H Plt Count 43 L Seg Neuts % (Manual) Lymphocytes % (Manual) Monocytes % (Manual) Nucleated RBC % Seg Neutrophils # Seg Neutrophils # Man Lymphocytes # (Manual) Monocytes # (Manual) PT INR POC ABG pH ABG pH POC ABG pCO2 POC ABG pO2 ABG pO2 ABG O2 Saturation ABG Base Excess ABG Hemoglobin Oxyhemoglobin Sodium 132 L Potassium 5.6 H Chloride 89.6 L Carbon Dioxide 20 L BUN 101 H Creatinine 7.4 H Glucose 124 H POC Glucose Lactic Acid Calcium 5.2 L* Phosphorus Magnesium Total Bilirubin 2.80 H Direct Bilirubin AST 119 H ALT 86 H Alkaline Phosphatase 245 H Total Creatine Kinase CK-MB (CK-2) Troponin T C-Reactive Protein Total Protein 5.6 L Albumin 2.5 L Triglycerides LDL Cholesterol Direct HDL Cholesterol Free T4 Urine WBC (Auto) Urine Creatinine Salicylates Acetaminophen Chest x-ray: image reviewed (improved infiltrates) Allied health notes reviewed: nursing
--- NOTE | 2019-03-22 12:00 | Progress Note ---
Assessment and Plan Patient is a 43 y/o man w/ a history of psychiatric illness (unknown which psychiatric diagnosis he has been given in the past), who presented on 03/16/19 with altered mental status. During the course of admission, patient was found to have sepsis with septic shock, rhabdomyolysis, RUBEN, and multiorgan failure. According to the patient's clinical findings, the patient likely has toxic metabolic encephalopathy. In support of this diagnosis, the multiple metabolic derangements including multiorgan failure, sepsis, septic shock requiring pressor support, RUBEN, rhabdomyolysis. Plan: 1. Metabolic encephalopathy: - Likely due to multiple underlying metabolic derangements, including multiorgan failure, sepsis, septic shock requiring pressor support, RUBEN, rhabdomyolysis. - Possible Meningo-encephalitis. Recommend LP, however platelets are currently low. Recommend for it to be done once platelets are at an acceptable level, and once patient is stable enough to tolerate. - Patient on antibiotics per ID. Recommend considering placing patient on acyclovir as well, if ok with ID team. - EEG showed generalized slowing, no seizures or epileptiform activity. - CT head showed diffuse cerebral edema. - Recommend for repeat cerebral imaging with either CT head or MRI brain once patient is stable enough. - Continue supportive care per ICU/primary/ID teams. - Discussed at length with patient's brother regarding EEG findings, altered mental status due to metabolic abnormalities and infection. - Will continue to monitor patient. Thank you for allowing me to take part in the care of this patient. Nahid Carroll MD Neurology Subjective Date of service: 03/22/19 Principal diagnosis: Septic Shock; Ac. hypoxemic resp failure; Renzo. PNA; Rhabdomyolysis; RUBEN Interval history: No acute events overnight. Objective - Exam Narrative Exam: Patient is intubated, sedated. Not following commands. PERRL, corneal reflexes diminished, cough weakly intact. Patient moves head with visual threat when checking corneal reflexes. Withdraws to pain stimulus in all extremities. Sp ontanenous movement noted in LUE. 2+ reflexes throughout. - Vital Sign Vital Signs - 12hr 03/22/19 03/22/19 03/22/19 00:00 00:15 00:30 Temperature 97.5 F L Pulse Rate 60 63 64 Pulse Rate [ Anterior Bilateral Throughout] Pulse Rate [ 60 From Monitor] Respiratory 14 12 15 Rate Respiratory Rate [Anterior Bilateral Throughout] Blood Pressure 101/47 101/47 101/44 O2 Sat by Pulse 95 95 95 Oximetry 03/22/19 03/22/19 03/22/19 00:45 01:00 01:15 Temperature Pulse Rate 63 63 62 Pulse Rate [ Anterior Bilateral Throughout] Pulse Rate [ From Monitor] Respiratory 21 21 22 Rate Respiratory Rate [Anterior Bilateral Throughout] Blood Pressure 101/44 97/49 97/49 O2 Sat by Pulse 94 94 95 Oximetry 03/22/19 03/22/19 03/22/19 01:30 01:45 02:00 Temperature Pulse Rate 63 61 66 Pulse Rate [ Anterior Bilateral Throughout] Pulse Rate [ 63 From Monitor] Respiratory 18 18 21 Rate Respiratory Rate [Anterior Bilateral Throughout] Blood Pressure 100/50 100/50 103/49 O2 Sat by Pulse 94 94 94 Oximetry 03/22/19 03/22/19 03/22/19 02:15 02:31 02:45 Temperature Pulse Rate 72 77 111 H Pulse Rate [ Anterior Bilateral Throughout] Pulse Rate [ From Monitor] Respiratory 14 17 21 Rate Respiratory Rate [Anterior Bilateral Throughout] Blood Pressure 103/49 103/49 103/49 O2 Sat by Pulse 94 94 91 Oximetry 03/22/19 03/22/19 03/22/19 03:01 03:15 03:30 Temperature Pulse Rate 115 H 75 127 H Pulse Rate [ Anterior Bilateral Throughout] Pulse Rate [ From Monitor] Respiratory 20 24 20 Rate Respiratory Rate [Anterior Bilateral Throughout] Blood Pressure 103/49 131/78 130/81 O2 Sat by Pulse 92 89 88 Oximetry 03/22/19 03/22/19 03/22/19 03:45 04:00 04:01 Temperature 98.9 F Pulse Rate 120 H 85 112 H Pulse Rate [ Anterior Bilateral Throughout] Pulse Rate [ 108 H From Monitor] Respiratory 24 22 27 H Rate Respiratory Rate [Anterior Bilateral Throughout] Blood Pressure 130/81 114/75 O2 Sat by Pulse 86 95 86 Oximetry 03/22/19 03/22/19 03/22/19 04:15 04:31 04:35 Temperature Pulse Rate 121 H 111 H Pulse Rate [ 108 H Anterior Bilateral Throughout] Pulse Rate [ From Monitor] Respiratory 28 H 24 Rate Respiratory 22 Rate [Anterior Bilateral Throughout] Blood Pressure 114/75 118/69 O2 Sat by Pulse 87 82 L Oximetry 03/22/19 03/22/19 03/22/19 04:45 05:01 05:07 Temperature Pulse Rate 122 H 112 H 106 H Pulse Rate [ Anterior Bilateral Throughout] Pulse Rate [ From Monitor] Respiratory 17 17 Rate Respiratory Rate [Anterior Bilateral Throughout] Blood Pressure 118/69 110/63 122/69 O2 Sat by Pulse 91 88 91 Oximetry 03/22/19 03/22/19 03/22/19 05:15 05:31 05:45 Temperature Pulse Rate 83 86 120 H Pulse Rate [ Anterior Bilateral Throughout] Pulse Rate [ From Monitor] Respiratory 22 21 20 Rate Respiratory Rate [Anterior Bilateral Throughout] Blood Pressure 110/63 62/26 62/26 O2 Sat by Pulse 83 L 84 84 Oximetry 03/22/19 03/22/19 03/22/19 06:01 06:15 06:31 Temperature Pulse Rate 129 H 76 86 Pulse Rate [ Anterior Bilateral Throughout] Pulse Rate [ From Monitor] Respiratory 28 H 22 20 Rate Respiratory Rate [Anterior Bilateral Throughout] Blood Pressure 62/26 62/26 107/62 O2 Sat by Pulse 72 L 84 87 Oximetry 03/22/19 03/22/19 03/22/19 06:45 07:00 07:15 Temperature Pulse Rate 100 H 113 H 106 H Pulse Rate [ Anterior Bilateral Throughout] Pulse Rate [ From Monitor] Respiratory 18 14 13 Rate Respiratory Rate [Anterior Bilateral Throughout] Blood Pressure 107/62 111/66 107/62 O2 Sat by Pulse 86 88 88 Oximetry 03/22/19 03/22/19 03/22/19 07:30 07:43 07:45 Temperature Pulse Rate 110 H 78 112 H Pulse Rate [ Anterior Bilateral Throughout] Pulse Rate [ From Monitor] Respiratory 14 20 Rate Respiratory Rate [Anterior Bilateral Throughout] Blood Pressure 110/51 110/51 111/66 O2 Sat by Pulse 87 87 87 Oximetry 03/22/19 03/22/19 03/22/19 07:54 08:00 08:15 Temperature 98.9 F Pulse Rate 119 H 112 H Pulse Rate [ 75 Anterior Bilateral Throughout] Pulse Rate [ 119 H From Monitor] Respiratory 23 25 H Rate Respiratory 20 Rate [Anterior Bilateral Throughout] Blood Pressure 111/61 110/51 O2 Sat by Pulse 95 85 Oximetry 03/22/19 03/22/19 03/22/19 08:30 08:45 09:00 Temperature Pulse Rate 126 H 115 H 120 H Pulse Rate [ Anterior Bilateral Throughout] Pulse Rate [ From Monitor] Respiratory 19 19 22 Rate Respiratory Rate [Anterior Bilateral Throughout] Blood Pressure 118/67 118/67 104/64 O2 Sat by Pulse 83 L 92 87 Oximetry 03/22/19 03/22/19 03/22/19 09:15 09:30 09:45 Temperature Pulse Rate 102 H 80 77 Pulse Rate [ Anterior Bilateral Throughout] Pulse Rate [ From Monitor] Respiratory 22 24 23 Rate Respiratory Rate [Anterior Bilateral Throughout] Blood Pressure 104/64 106/64 106/64 O2 Sat by Pulse 90 87 89 Oximetry 03/22/19 03/22/19 03/22/19 10:00 10:15 10:30 Temperature Pulse Rate 76 76 111 H Pulse Rate [ Anterior Bilateral Throughout] Pulse Rate [ From Monitor] Respiratory 24 24 22 Rate Respiratory Rate [Anterior Bilateral Throughout] Blood Pressure 109/47 109/47 114/93 O2 Sat by Pulse 87 88 86 Oximetry 03/22/19 03/22/19 03/22/19 10:45 11:00 11:14 Temperature Pulse Rate 124 H 113 H 128 H Pulse Rate [ Anterior Bilateral Throughout] Pulse Rate [ From Monitor] Respiratory 21 20 Rate Respiratory Rate [Anterior Bilateral Throughout] Blood Pressure 109/47 111/84 111/84 O2 Sat by Pulse 82 L 83 L 94 Oximetry 03/22/19 11:34 Temperature Pulse Rate Pulse Rate [ 112 H Anterior Bilateral Throughout] Pulse Rate [ From Monitor] Respiratory Rate Respiratory 23 Rate [Anterior Bilateral Throughout] Blood Pressure O2 Sat by Pulse Oximetry - General Apperance Constitutional: acutely ill - EENT EENT: ATNC, PERRL, mucous membranes moist - Respiratory Respiratory: decreased breath sounds - Cardiovascular Cardiovascular: regular rate, normal S1, normal S2 Extremities: no clubbing, cyanosis, no inflammation - Gastrointestinal Gastrointestinal: normoactive bowel sounds, soft, non-tender - Integumentary Integumentary: normal - Laboratory Findings CBC and BMP: 03/22/19 08:00 03/22/19 08:00 Abnormal Lab Findings: Abnormal Labs 03/16/19 03/16/19 03/16/19 15:32 16:03 16:05 WBC 27.0 H RBC 5.55 H Hgb 15.7 H Hct 47.1 H RDW Plt Count 75 L Seg Neuts % (Manual) 85.0 H Lymphocytes % (Manual) 2.0 L Monocytes % (Manual) Nucleated RBC % Seg Neutrophils # Seg Neutrophils # Man 23.0 H Lymphocytes # (Manual) 0.5 L Monocytes # (Manual) PT INR POC ABG pH ABG pH POC ABG pCO2 POC ABG pO2 ABG pO2 ABG O2 Saturation ABG Base Excess ABG Hemoglobin Oxyhemoglobin Sodium 127 L Potassium Chloride 87.8 L Carbon Dioxide 17 L BUN 49 H Creatinine 5.8 H Glucose 150 H POC Glucose 118 H Lactic Acid Calcium 6.6 L Phosphorus Magnesium 1.10 L Total Bilirubin Direct Bilirubin AST ALT Alkaline Phosphatase Total Creatine Kinase 25474 H CK-MB (CK-2) Troponin T C-Reactive Protein Total Protein Albumin Triglycerides LDL Cholesterol Direct HDL Cholesterol Free T4 Urine WBC (Auto) Urine Creatinine Salicylates Acetaminophen 03/16/19 03/16/19 03/16/19 16:59 17:05 17:05 WBC RBC Hgb Hct RDW Plt Count Seg Neuts % (Manual) Lymphocytes % (Manual) Monocytes % (Manual) Nucleated RBC % Seg Neutrophils # Seg Neutrophils # Man Lymphocytes # (Manual) Monocytes # (Manual) PT INR POC ABG pH 7.297 L ABG pH POC ABG pCO2 33.0 L POC ABG pO2 ABG pO2 ABG O2 Saturation ABG Base Excess ABG Hemoglobin Oxyhemoglobin Sodium Potassium Chloride Carbon Dioxide BUN Creatinine Glucose POC Glucose Lactic Acid Calcium Phosphorus Magnesium Total Bilirubin Direct Bilirubin AST ALT Alkaline Phosphatase Total Creatine Kinase 51870 H CK-MB (CK-2) 83.1 H Troponin T C-Reactive Protein Total Protein Albumin Triglycerides LDL Cholesterol Direct HDL Cholesterol Free T4 0.72 L Urine WBC (Auto) Urine Creatinine Salicylates Acetaminophen 03/16/19 03/16/19 03/16/19 17:05 17:05 17:05 WBC RBC Hgb Hct RDW Plt Count Seg Neuts % (Manual) Lymphocytes % (Manual) Monocytes % (Manual) Nucleated RBC % Seg Neutrophils # Seg Neutrophils # Man Lymphocytes # (Manual) Monocytes # (Manual) PT INR POC ABG pH ABG pH POC ABG pCO2 POC ABG pO2 ABG pO2 ABG O2 Saturation ABG Base Excess ABG Hemoglobin Oxyhemoglobin Sodium Potassium Chloride Carbon Dioxide BUN Creatinine Glucose POC Glucose Lactic Acid 5.10 H* Calcium Phosphorus Magnesium Total Bilirubin Direct Bilirubin AST ALT Alkaline Phosphatase Total Creatine Kinase CK-MB (CK-2) Troponin T C-Reactive Protein Total Protein Albumin Triglycerides LDL Cholesterol Direct HDL Cholesterol Free T4 Urine WBC (Auto) Urine Creatinine Salicylates < 0.3 L Acetaminophen < 5.0 L 09/20/19 09/20/19 09/20/19 17:05 17:05 20:35 WBC RBC Hgb Hct RDW Plt Count Seg Neuts % (Manual) Lymphocytes % (Manual) Monocytes % (Manual) Nucleated RBC % Seg Neutrophils # Seg Neutrophils # Man Lymphocytes # (Manual) Monocytes # (Manual) PT 15.9 H INR 1.30 H POC ABG pH ABG pH POC ABG pCO2 POC ABG pO2 ABG pO2 ABG O2 Saturation ABG Base Excess ABG Hemoglobin Oxyhemoglobin Sodium Potassium Chloride Carbon Dioxide BUN Creatinine Glucose POC Glucose Lactic Acid 3.30 H* Calcium Phosphorus Magnesium Total Bilirubin 6.20 H Direct Bilirubin 5.9 H AST 800 H ALT 120 H Alkaline Phosphatase Total Creatine Kinase CK-MB (CK-2) Troponin T C-Reactive Protein Total Protein 4.4 L Albumin 2.4 L Triglycerides LDL Cholesterol Direct HDL Cholesterol Free T4 Urine WBC (Auto) Urine Creatinine Salicylates Acetaminophen 03/16/19 03/16/19 03/16/19 21:45 22:32 Unknown WBC RBC Hgb Hct RDW Plt Count Seg Neuts % (Manual) Lymphocytes % (Manual) Monocytes % (Manual) Nucleated RBC % Seg Neutrophils # Seg Neutrophils # Man Lymphocytes # (Manual) Monocytes # (Manual) PT INR POC ABG pH ABG pH POC ABG pCO2 POC ABG pO2 ABG pO2 ABG O2 Saturation ABG Base Excess ABG Hemoglobin Oxyhemoglobin Sodium Potassium Chloride Carbon Dioxide BUN Creatinine Glucose POC Glucose Lactic Acid 3.30 H* 3.00 H* Calcium Phosphorus Magnesium Total Bilirubin Direct Bilirubin AST ALT Alkaline Phosphatase Total Creatine Kinase CK-MB (CK-2) Troponin T 0.047 H D C-Reactive Protein Total Protein Albumin Triglycerides 395 H LDL Cholesterol Direct 10 L HDL Cholesterol 7 L Free T4 Urine WBC (Auto) Urine Creatinine Salicylates Acetaminophen 03/17/19 03/17/19 03/17/19 03:45 03:45 03:45 WBC RBC Hgb Hct RDW Plt Count Seg Neuts % (Manual) Lymphocytes % (Manual) Monocytes % (Manual) Nucleated RBC % Seg Neutrophils # Seg Neutrophils # Man Lymphocytes # (Manual) Monocytes # (Manual) PT INR POC ABG pH ABG pH POC ABG pCO2 POC ABG pO2 ABG pO2 ABG O2 Saturation ABG Base Excess ABG Hemoglobin Oxyhemoglobin Sodium 131 L Potassium Chloride 88.9 L Carbon Dioxide BUN 53 H Creatinine 7.1 H Glucose POC Glucose Lactic Acid 4.10 H* Calcium 5.4 L* D Phosphorus 7.30 H Magnesium 1.60 L Total Bilirubin 5.90 H Direct Bilirubin AST 801 H ALT 109 H Alkaline Phosphatase Total Creatine Kinase 49995 H 78498 H CK-MB (CK-2) 41.5 H Troponin T 0.054 H C-Reactive Protein Total Protein 4.5 L Albumin 2.0 L Triglycerides LDL Cholesterol Direct HDL Cholesterol Free T4 Urine WBC (Auto) Urine Creatinine Salicylates Acetaminophen 03/17/19 03/17/19 03/17/19 05:47 07:16 07:16 WBC RBC Hgb Hct RDW Plt Count Seg Neuts % (Manual) Lymphocytes % (Manual) Monocytes % (Manual) Nucleated RBC % Seg Neutrophils # Seg Neutrophils # Man Lymphocytes # (Manual) Monocytes # (Manual) PT INR POC ABG pH 7.193 L ABG pH POC ABG pCO2 45.2 H POC ABG pO2 65 L ABG pO2 ABG O2 Saturation ABG Base Excess ABG Hemoglobin Oxyhemoglobin Sodium Potassium Chloride Carbon Dioxide BUN Creatinine Glucose POC Glucose Lactic Acid 5.50 H* Calcium Phosphorus Magnesium Total Bilirubin Direct Bilirubin AST ALT Alkaline Phosphatase Total Creatine Kinase 48443 H CK-MB (CK-2) 54.3 H Troponin T 0.058 H C-Reactive Protein Total Protein Albumin Triglycerides LDL Cholesterol Direct HDL Cholesterol Free T4 Urine WBC (Auto) Urine Creatinine Salicylates Acetaminophen 03/17/19 03/17/19 03/17/19 11:52 12:51 13:01 WBC RBC Hgb Hct RDW Plt Count Seg Neuts % (Manual) Lymphocytes % (Manual) Monocytes % (Manual) Nucleated RBC % Seg Neutrophils # Seg Neutrophils # Man Lymphocytes # (Manual) Monocytes # (Manual) PT INR POC ABG pH 7.154 L ABG pH POC ABG pCO2 34.3 L POC ABG pO2 73 L ABG pO2 ABG O2 Saturation ABG Base Excess ABG Hemoglobin Oxyhemoglobin Sodium Potassium Chloride Carbon Dioxide BUN Creatinine Glucose POC Glucose 60 L Lactic Acid 8.20 H* Calcium Phosphorus Magnesium Total Bilirubin Direct Bilirubin AST ALT Alkaline Phosphatase Total Creatine Kinase CK-MB (CK-2) Troponin T C-Reactive Protein Total Protein Albumin Triglycerides LDL Cholesterol Direct HDL Cholesterol Free T4 Urine WBC (Auto) Urine Creatinine Salicylates Acetaminophen 03/17/19 03/17/19 03/17/19 14:37 14:37 14:37 WBC 29.3 H RBC Hgb Hct RDW 15.8 H Plt Count 45 L Seg Neuts % (Manual) 81.0 H Lymphocytes % (Manual) 1.0 L Monocytes % (Manual) 15.0 H Nucleated RBC % Seg Neutrophils # Seg Neutrophils # Man 23.7 H Lymphocytes # (Manual) 0.3 L Monocytes # (Manual) 4.4 H PT INR POC ABG pH ABG pH POC ABG pCO2 POC ABG pO2 ABG pO2 ABG O2 Saturation ABG Base Excess ABG Hemoglobin Oxyhemoglobin Sodium Potassium Chloride Carbon Dioxide BUN Creatinine Glucose POC Glucose Lactic Acid 4.90 H* Calcium Phosphorus Magnesium Total Bilirubin Direct Bilirubin AST ALT Alkaline Phosphatase Total Creatine Kinase CK-MB (CK-2) Troponin T C-Reactive Protein 24.90 H Total Protein Albumin Triglycerides LDL Cholesterol Direct HDL Cholesterol Free T4 Urine WBC (Auto) Urine Creatinine Salicylates Acetaminophen 03/17/19 03/17/19 03/17/19 16:05 16:05 17:02 WBC RBC Hgb Hct RDW Plt Count Seg Neuts % (Manual) Lymphocytes % (Manual) Monocytes % (Manual) Nucleated RBC % Seg Neutrophils # Seg Neutrophils # Man Lymphocytes # (Manual) Monocytes # (Manual) PT INR POC ABG pH 7.183 L ABG pH POC ABG pCO2 POC ABG pO2 65 L ABG pO2 ABG O2 Saturation ABG Base Excess ABG Hemoglobin Oxyhemoglobin Sodium Potassium Chloride Carbon Dioxide BUN Creatinine Glucose POC Glucose Lactic Acid Calcium Phosphorus Magnesium Total Bilirubin Direct Bilirubin AST ALT Alkaline Phosphatase Total Creatine Kinase CK-MB (CK-2) Troponin T C-Reactive Protein Total Protein Albumin Triglycerides LDL Cholesterol Direct HDL Cholesterol Free T4 Urine WBC (Auto) 30.0 H Urine Creatinine 106.6 H Salicylates Acetaminophen 03/18/19 03/18/19 03/18/19 05:12 05:16 05:53 WBC RBC Hgb Hct RDW Plt Count Seg Neuts % (Manual) Lymphocytes % (Manual) Monocytes % (Manual) Nucleated RBC % Seg Neutrophils # Seg Neutrophils # Man Lymphocytes # (Manual) Monocytes # (Manual) PT INR POC ABG pH 7.257 L ABG pH POC ABG pCO2 31.6 L POC ABG pO2 69 L ABG pO2 ABG O2 Saturation ABG Base Excess ABG Hemoglobin Oxyhemoglobin Sodium Potassium Chloride Carbon Dioxide BUN Creatinine Glucose POC Glucose 141 H Lactic Acid 5.00 H* Calcium Phosphorus Magnesium Total Bilirubin Direct Bilirubin AST ALT Alkaline Phosphatase Total Creatine Kinase CK-MB (CK-2) Troponin T C-Reactive Protein Total Protein Albumin Triglycerides LDL Cholesterol Direct HDL Cholesterol Free T4 Urine WBC (Auto) Urine Creatinine Salicylates Acetaminophen 03/18/19 03/18/19 03/18/19 06:57 08:40 08:40 WBC 31.7 H RBC Hgb Hct RDW 15.5 H Plt Count 35 L Seg Neuts % (Manual) Lymphocytes % (Manual) Monocytes % (Manual) Nucleated RBC % Seg Neutrophils # Seg Neutrophils # Man Lymphocytes # (Manual) Monocytes # (Manual) PT INR POC ABG pH ABG pH POC ABG pCO2 POC ABG pO2 ABG pO2 ABG O2 Saturation ABG Base Excess ABG Hemoglobin Oxyhemoglobin Sodium 132 L Potassium 5.5 H D Chloride 88.5 L Carbon Dioxide 18 L BUN 71 H Creatinine 8.1 H Glucose 205 H POC Glucose Lactic Acid 5.00 H* Calcium 4.1 L* D Phosphorus Magnesium 2.40 H Total Bilirubin 7.50 H Direct Bilirubin AST 1088 H ALT 159 H Alkaline Phosphatase 190 H Total Creatine Kinase 555469 H CK-MB (CK-2) Troponin T C-Reactive Protein Total Protein 4.7 L Albumin 1.8 L Triglycerides LDL Cholesterol Direct HDL Cholesterol Free T4 Urine WBC (Auto) Urine Creatinine Salicylates Acetaminophen 03/18/19 03/18/19 03/18/19 12:33 12:50 13:19 WBC RBC Hgb Hct RDW Plt Count Seg Neuts % (Manual) Lymphocytes % (Manual) Monocytes % (Manual) Nucleated RBC % Seg Neutrophils # Seg Neutrophils # Man Lymphocytes # (Manual) Monocytes # (Manual) PT INR POC ABG pH 7.282 L ABG pH POC ABG pCO2 POC ABG pO2 67 L ABG pO2 ABG O2 Saturation ABG Base Excess ABG Hemoglobin Oxyhemoglobin Sodium Potassium Chloride Carbon Dioxide BUN Creatinine Glucose POC Glucose 129 H Lactic Acid 3.30 H* Calcium Phosphorus Magnesium Total Bilirubin Direct Bilirubin AST ALT Alkaline Phosphatase Total Creatine Kinase CK-MB (CK-2) Troponin T C-Reactive Protein Total Protein Albumin Triglycerides LDL Cholesterol Direct HDL Cholesterol Free T4 Urine WBC (Auto) Urine Creatinine Salicylates Acetaminophen 09/22/19 09/22/19 09/22/19 13:19 16:50 18:11 WBC RBC Hgb Hct RDW Plt Count Seg Neuts % (Manual) Lymphocytes % (Manual) Monocytes % (Manual) Nucleated RBC % Seg Neutrophils # Seg Neutrophils # Man Lymphocytes # (Manual) Monocytes # (Manual) PT INR POC ABG pH ABG pH POC ABG pCO2 POC ABG pO2 59 L ABG pO2 ABG O2 Saturation ABG Base Excess ABG Hemoglobin Oxyhemoglobin Sodium Potassium Chloride Carbon Dioxide BUN Creatinine Glucose POC Glucose 151 H Lactic Acid Calcium 4.2 L* Phosphorus Magnesium Total Bilirubin Direct Bilirubin AST ALT Alkaline Phosphatase Total Creatine Kinase 233107 H CK-MB (CK-2) Troponin T C-Reactive Protein Total Protein Albumin Triglycerides LDL Cholesterol Direct HDL Cholesterol Free T4 Urine WBC (Auto) Urine Creatinine Salicylates Acetaminophen 03/18/19 03/18/19 03/19/19 18:20 23:39 01:42 WBC RBC Hgb Hct RDW Plt Count Seg Neuts % (Manual) Lymphocytes % (Manual) Monocytes % (Manual) Nucleated RBC % Seg Neutrophils # Seg Neutrophils # Man Lymphocytes # (Manual) Monocytes # (Manual) PT INR POC ABG pH 7.345 L ABG pH 7.285 L POC ABG pCO2 POC ABG pO2 59 L ABG pO2 44.0 L ABG O2 Saturation 70.9 L ABG Base Excess -5.7 L ABG Hemoglobin 11.9 L Oxyhemoglobin 69.6 L Sodium Potassium Chloride Carbon Dioxide BUN Creatinine Glucose POC Glucose 152 H Lactic Acid Calcium Phosphorus Magnesium Total Bilirubin Direct Bilirubin AST ALT Alkaline Phosphatase Total Creatine Kinase CK-MB (CK-2) Troponin T C-Reactive Protein Total Protein Albumin Triglycerides LDL Cholesterol Direct HDL Cholesterol Free T4 Urine WBC (Auto) Urine Creatinine Salicylates Acetaminophen 03/19/19 03/19/19 03/19/19 04:00 04:00 05:35 WBC 36.5 H RBC Hgb Hct RDW 15.8 H Plt Count 35 L Seg Neuts % (Manual) Lymphocytes % (Manual) Monocytes % (Manual) Nucleated RBC % Seg Neutrophils # Seg Neutrophils # Man Lymphocytes # (Manual) Monocytes # (Manual) PT INR POC ABG pH ABG pH 7.265 L POC ABG pCO2 POC ABG pO2 ABG pO2 35.4 L* ABG O2 Saturation 54.4 L ABG Base Excess -6.7 L ABG Hemoglobin 12.9 L Oxyhemoglobin 53.4 L Sodium 132 L Potassium 5.7 H Chloride 89.8 L Carbon Dioxide 19 L BUN 62 H Creatinine 6.4 H Glucose 151 H POC Glucose Lactic Acid Calcium 5.2 L* D Phosphorus Magnesium Total Bilirubin 7.80 H Direct Bilirubin AST 682 H ALT 130 H Alkaline Phosphatase 167 H Total Creatine Kinase CK-MB (CK-2) Troponin T C-Reactive Protein Total Protein 4.8 L Albumin 2.3 L Triglycerides LDL Cholesterol Direct HDL Cholesterol Free T4 Urine WBC (Auto) Urine Creatinine Salicylates Acetaminophen 03/19/19 03/19/19 03/19/19 05:49 09:16 09:50 WBC RBC Hgb Hct RDW Plt Count Seg Neuts % (Manual) Lymphocytes % (Manual) Monocytes % (Manual) Nucleated RBC % Seg Neutrophils # Seg Neutrophils # Man Lymphocytes # (Manual) Monocytes # (Manual) PT INR POC ABG pH 7.222 L ABG pH POC ABG pCO2 56.6 H POC ABG pO2 ABG pO2 ABG O2 Saturation ABG Base Excess ABG Hemoglobin Oxyhemoglobin Sodium Potassium Chloride Carbon Dioxide BUN Creatinine Glucose POC Glucose 154 H Lactic Acid 2.70 H* Calcium Phosphorus Magnesium Total Bilirubin Direct Bilirubin AST ALT Alkaline Phosphatase Total Creatine Kinase CK-MB (CK-2) Troponin T C-Reactive Protein Total Protein Albumin Triglycerides LDL Cholesterol Direct HDL Cholesterol Free T4 Urine WBC (Auto) Urine Creatinine Salicylates Acetaminophen 03/19/19 03/19/19 03/19/19 09:50 11:28 17:58 WBC RBC Hgb Hct RDW Plt Count Seg Neuts % (Manual) Lymphocytes % (Manual) Monocytes % (Manual) Nucleated RBC % Seg Neutrophils # Seg Neutrophils # Man Lymphocytes # (Manual) Monocytes # (Manual) PT INR POC ABG pH 7.250 L ABG pH POC ABG pCO2 52.6 H POC ABG pO2 ABG pO2 ABG O2 Saturation ABG Base Excess ABG Hemoglobin Oxyhemoglobin Sodium Potassium Chloride Carbon Dioxide BUN Creatinine Glucose POC Glucose 160 H Lactic Acid Calcium Phosphorus Magnesium Total Bilirubin Direct Bilirubin AST ALT Alkaline Phosphatase Total Creatine Kinase 14589 H CK-MB (CK-2) Troponin T C-Reactive Protein Total Protein Albumin Triglycerides LDL Cholesterol Direct HDL Cholesterol Free T4 Urine WBC (Auto) Urine Creatinine Salicylates Acetaminophen 03/19/19 03/19/19 03/20/19 19:48 21:03 02:16 WBC RBC Hgb Hct RDW Plt Count Seg Neuts % (Manual) Lymphocytes % (Manual) Monocytes % (Manual) Nucleated RBC % Seg Neutrophils # Seg Neutrophils # Man Lymphocytes # (Manual) Monocytes # (Manual) PT INR POC ABG pH 7.279 L ABG pH POC ABG pCO2 50.3 H POC ABG pO2 129 H ABG pO2 ABG O2 Saturation ABG Base Excess ABG Hemoglobin Oxyhemoglobin Sodium Potassium Chloride Carbon Dioxide BUN Creatinine Glucose POC Glucose 119 H 119 H Lactic Acid Calcium Phosphorus Magnesium Total Bilirubin Direct Bilirubin AST ALT Alkaline Phosphatase Total Creatine Kinase CK-MB (CK-2) Troponin T C-Reactive Protein Total Protein Albumin Triglycerides LDL Cholesterol Direct HDL Cholesterol Free T4 Urine WBC (Auto) Urine Creatinine Salicylates Acetaminophen 03/20/19 03/20/19 03/20/19 04:23 05:05 09:30 WBC 36.3 H RBC Hgb Hct RDW 15.5 H Plt Count 29 L Seg Neuts % (Manual) Lymphocytes % (Manual) Monocytes % (Manual) Nucleated RBC % Seg Neutrophils # Seg Neutrophils # Man Lymphocytes # (Manual) Monocytes # (Manual) PT INR POC ABG pH ABG pH POC ABG pCO2 POC ABG pO2 280 H ABG pO2 ABG O2 Saturation ABG Base Excess ABG Hemoglobin Oxyhemoglobin Sodium Potassium Chloride Carbon Dioxide BUN Creatinine Glucose POC Glucose 115 H Lactic Acid Calcium Phosphorus Magnesium Total Bilirubin Direct Bilirubin AST ALT Alkaline Phosphatase Total Creatine Kinase CK-MB (CK-2) Troponin T C-Reactive Protein Total Protein Albumin Triglycerides LDL Cholesterol Direct HDL Cholesterol Free T4 Urine WBC (Auto) Urine Creatinine Salicylates Acetaminophen 03/20/19 03/20/19 03/20/19 09:30 09:30 11:34 WBC RBC Hgb Hct RDW Plt Count Seg Neuts % (Manual) Lymphocytes % (Manual) Monocytes % (Manual) Nucleated RBC % Seg Neutrophils # Seg Neutrophils # Man Lymphocytes # (Manual) Monocytes # (Manual) PT INR POC ABG pH ABG pH POC ABG pCO2 POC ABG pO2 ABG pO2 ABG O2 Saturation ABG Base Excess ABG Hemoglobin Oxyhemoglobin Sodium 131 L Potassium Chloride 92.3 L Carbon Dioxide 20 L BUN 68 H Creatinine 6.1 H Glucose 164 H POC Glucose 141 H Lactic Acid Calcium 5.3 L* Phosphorus Magnesium Total Bilirubin 9.50 H Direct Bilirubin AST 381 H ALT 116 H Alkaline Phosphatase 255 H Total Creatine Kinase 10220 H CK-MB (CK-2) Troponin T C-Reactive Protein Total Protein 5.1 L Albumin 2.3 L Triglycerides LDL Cholesterol Direct HDL Cholesterol Free T4 Urine WBC (Auto) Urine Creatinine Salicylates Acetaminophen 03/20/19 03/20/19 03/20/19 14:41 14:45 18:50 WBC RBC Hgb Hct RDW Plt Count Seg Neuts % (Manual) Lymphocytes % (Manual) Monocytes % (Manual) Nucleated RBC % Seg Neutrophils # Seg Neutrophils # Man Lymphocytes # (Manual) Monocytes # (Manual) PT INR POC ABG pH ABG pH POC ABG pCO2 POC ABG pO2 ABG pO2 ABG O2 Saturation ABG Base Excess ABG Hemoglobin Oxyhemoglobin Sodium Potassium Chloride Carbon Dioxide BUN Creatinine Glucose POC Glucose 117 H Lactic Acid 2.90 H* Calcium Phosphorus Magnesium Total Bilirubin Direct Bilirubin AST ALT Alkaline Phosphatase Total Creatine Kinase CK-MB (CK-2) Troponin T C-Reactive Protein 13.30 H Total Protein Albumin Triglycerides LDL Cholesterol Direct HDL Cholesterol Free T4 Urine WBC (Auto) Urine Creatinine Salicylates Acetaminophen 03/20/19 03/21/19 03/21/19 21:55 04:26 04:26 WBC 37.8 H RBC Hgb Hct RDW 15.4 H Plt Count 36 L Seg Neuts % (Manual) 93.0 H Lymphocytes % (Manual) 3.0 L Monocytes % (Manual) Nucleated RBC % 1.0 H Seg Neutrophils # 34.6 H Seg Neutrophils # Man 35.2 H Lymphocytes # (Manual) 1.1 L Monocytes # (Manual) PT INR POC ABG pH ABG pH POC ABG pCO2 POC ABG pO2 ABG pO2 ABG O2 Saturation ABG Base Excess ABG Hemoglobin Oxyhemoglobin Sodium 131 L Potassium Chloride 90.7 L Carbon Dioxide 21 L BUN 69 H Creatinine 5.7 H Glucose 170 H POC Glucose 128 H Lactic Acid Calcium 6.1 L D Phosphorus Magnesium Total Bilirubin 9.50 H Direct Bilirubin AST 308 H ALT 124 H Alkaline Phosphatase 327 H Total Creatine Kinase 49232 H CK-MB (CK-2) Troponin T C-Reactive Protein Total Protein 5.7 L Albumin 2.6 L Triglycerides LDL Cholesterol Direct HDL Cholesterol Free T4 Urine WBC (Auto) Urine Creatinine Salicylates Acetaminophen 03/21/19 03/21/19 03/21/19 05:17 05:39 08:29 WBC RBC Hgb Hct RDW Plt Count Seg Neuts % (Manual) Lymphocytes % (Manual) Monocytes % (Manual) Nucleated RBC % Seg Neutrophils # Seg Neutrophils # Man Lymphocytes # (Manual) Monocytes # (Manual) PT INR POC ABG pH ABG pH POC ABG pCO2 POC ABG pO2 209 H ABG pO2 ABG O2 Saturation ABG Base Excess ABG Hemoglobin Oxyhemoglobin Sodium Potassium Chloride Carbon Dioxide BUN Creatinine Glucose POC Glucose 145 H Lactic Acid Calcium Phosphorus Magnesium Total Bilirubin Direct Bilirubin AST ALT Alkaline Phosphatase Total Creatine Kinase 23873 H CK-MB (CK-2) Troponin T C-Reactive Protein Total Protein Albumin Triglycerides LDL Cholesterol Direct HDL Cholesterol Free T4 Urine WBC (Auto) Urine Creatinine Salicylates Acetaminophen 03/21/19 03/21/19 03/21/19 08:29 11:43 12:00 WBC RBC Hgb Hct RDW Plt Count Seg Neuts % (Manual) Lymphocytes % (Manual) Monocytes % (Manual) Nucleated RBC % Seg Neutrophils # Seg Neutrophils # Man Lymphocytes # (Manual) Monocytes # (Manual) PT INR POC ABG pH ABG pH POC ABG pCO2 POC ABG pO2 ABG pO2 ABG O2 Saturation ABG Base Excess ABG Hemoglobin Oxyhemoglobin Sodium Potassium Chloride Carbon Dioxide BUN Creatinine Glucose POC Glucose 123 H Lactic Acid 2.60 H* 2.20 H* Calcium Phosphorus Magnesium Total Bilirubin Direct Bilirubin AST ALT Alkaline Phosphatase Total Creatine Kinase CK-MB (CK-2) Troponin T C-Reactive Protein Total Protein Albumin Triglycerides LDL Cholesterol Direct HDL Cholesterol Free T4 Urine WBC (Auto) Urine Creatinine Salicylates Acetaminophen 03/21/19 03/21/19 03/21/19 14:11 18:28 19:32 WBC RBC Hgb Hct RDW Plt Count Seg Neuts % (Manual) Lymphocytes % (Manual) Monocytes % (Manual) Nucleated RBC % Seg Neutrophils # Seg Neutrophils # Man Lymphocytes # (Manual) Monocytes # (Manual) PT INR POC ABG pH 7.293 L ABG pH POC ABG pCO2 POC ABG pO2 ABG pO2 ABG O2 Saturation ABG Base Excess ABG Hemoglobin Oxyhemoglobin Sodium Potassium Chloride Carbon Dioxide BUN Creatinine Glucose POC Glucose 153 H Lactic Acid 2.10 H* Calcium Phosphorus Magnesium Total Bilirubin Direct Bilirubin AST ALT Alkaline Phosphatase Total Creatine Kinase CK-MB (CK-2) Troponin T C-Reactive Protein Total Protein Albumin Triglycerides LDL Cholesterol Direct HDL Cholesterol Free T4 Urine WBC (Auto) Urine Creatinine Salicylates Acetaminophen 03/21/19 03/22/19 03/22/19 23:38 05:08 05:51 WBC RBC Hgb Hct RDW Plt Count Seg Neuts % (Manual) Lymphocytes % (Manual) Monocytes % (Manual) Nucleated RBC % Seg Neutrophils # Seg Neutrophils # Man Lymphocytes # (Manual) Monocytes # (Manual) PT INR POC ABG pH 7.283 L ABG pH POC ABG pCO2 POC ABG pO2 53 L ABG pO2 ABG O2 Saturation ABG Base Excess ABG Hemoglobin Oxyhemoglobin Sodium Potassium Chloride Carbon Dioxide BUN Creatinine Glucose POC Glucose 149 H 131 H Lactic Acid Calcium Phosphorus Magnesium Total Bilirubin Direct Bilirubin AST ALT Alkaline Phosphatase Total Creatine Kinase CK-MB (CK-2) Troponin T C-Reactive Protein Total Protein Albumin Triglycerides LDL Cholesterol Direct HDL Cholesterol Free T4 Urine WBC (Auto) Urine Creatinine Salicylates Acetaminophen 03/22/19 03/22/19 08:00 08:00 WBC 36.7 H RBC Hgb 11.0 L Hct 33.5 L RDW 15.5 H Plt Count 43 L Seg Neuts % (Manual) Lymphocytes % (Manual) Monocytes % (Manual) Nucleated RBC % Seg Neutrophils # Seg Neutrophils # Man Lymphocytes # (Manual) Monocytes # (Manual) PT INR POC ABG pH ABG pH POC ABG pCO2 POC ABG pO2 ABG pO2 ABG O2 Saturation ABG Base Excess ABG Hemoglobin Oxyhemoglobin Sodium 132 L Potassium 5.6 H Chloride 89.6 L Carbon Dioxide 20 L BUN 101 H Creatinine 7.4 H Glucose 124 H POC Glucose Lactic Acid Calcium 5.2 L* Phosphorus Magnesium Total Bilirubin 2.80 H Direct Bilirubin AST 119 H ALT 86 H Alkaline Phosphatase 245 H Total Creatine Kinase CK-MB (CK-2) Troponin T C-Reactive Protein Total Protein 5.6 L Albumin 2.5 L Triglycerides LDL Cholesterol Direct HDL Cholesterol Free T4 Urine WBC (Auto) Urine Creatinine Salicylates Acetaminophen
--- NOTE | 2019-03-22 12:06 | Progress Note ---
Assessment and Plan Assessment and plan: Patient is a 43 year old male with PMH of GERD, Obesity, and per family has been homeless on the streets in [place] admitted to our facility following arrival via private vehicle with AMS x 2 Days per friend. On arrival was intubated in the ED noted to have rectal temp of 105 AND SVT with rate in the 250 requiring 2 shocks delivery * Initial rhythm appeared to be SVT * Per friend patient complaining of feeling ill and has some left eye discharge, cold, clammy and diaphoretic by the time arrived to the hospital. Also mentions a possibility of a right axilla abscess. The and went to stay with his girlfriend the last 2 days and this morning when he saw the patient he was ill-appearing but sleeping. * Currently on 4 pressors * Start on [place] culture including coverage for possible Meningitis CHEST 1 VIEW . IMPRESSION: 1. Endotracheal tube in good position. 2. Nasogastric tube doubled back on itself at the level of the [place] with the tip not seen. The tube repositioned. CT of the chest, abdomen and pelvis without contrast . IMPRESSION: 1. Parenchymal disease in both lower lobes posteromedially may be related to aspiration pneumonia. 2. Moderately dilated small bowel bowel loops in the mid to upper abdomen anteriorly with mild associated bowel wall thickening. Loca lized enteritis and small bowel ischemia should be considered. CT head/brain wo contrast. IMPRESSION: 1. Some component of diffuse cerebral edema cannot be excluded. However, this finding may be artifactual secondary to patient positioning. Close follow-up is recommended. No definitive signs of herniation or large territorial infarct at this time. 2. Otherwise, no focal mass, hemorrhage, hydrocephalus, or large infarct seen. Multi-Organ failure Septic Shock Severe Sepsis Acute Metabolic Encephalopathy Acute Respiratory Failure with Hypoxia Presume ARDS SVT with Polymorphic Vtach Rhabdomyolysis Severe Metabolic Acidosis Acute Cystitis Acute Kidney Failure secondary to ATN ANURIC Thrombocytopenia, Presume DIC Shock Liver Hypomagnesemia, Suspect Aspiration pneumonia Right Axillary cellulitis Enteritis Hypoglycemia-IMPROVED NMS; was considered and mental health consulted recommended supportive care because of the critical nature of the condition. Plan: Continue supportive care Neurology consult; appreciated EEG; generalized slowing, no epilpetiform focus Dialysis was done; nephrology is following Specialist impressions noted and appreciated Wean pressors as needed Continue bicarb drip Holding further fluids due to poor urine output, Aspiration Precautions and VAP bundle Echo reviewed and noted Ultrasound to further evaluate right axilla to r/o abscess vs LAD Monitor Blood glucose prevent hypoglycemia UDS noted, only shows benzos, ?from here or outside. per family no hx of drugs CK is still very high Awaiting labs With four pressors will not transfuse Patients BP still too fragile to attempt any move, or even change to Bariatric bed DVT/GI prophy Poor prognosis Family informed and updated of clinical condition Advanced care planning, family opting against DNR, wants all done. Will like a call if patient codes as they may opt for limited code The high probability of a clinically significant, sudden or life threatening deterioration of the [multiple organs] system(s) required my full and direct attention, intervention and personal management. The aggregate critical care time was [45] minutes. This time is in addition to time spent performing reported procedures but includes the following: [x] Data Review and interpretation [x] Patient assessment and monitoring of vital signs [x] Documentation [x] Medication orders and management History Interval history: Patient was seen and evaluated this morning patient was intubated and on mechanical ventilation. Discussed the management plan with patient's nurse. Hospitalist Physical - Physical exam Narrative exam: Patient is intubated and on mechanical ventilation. The patient appeared well nourished and normally developed. Vital signs as documented. Head exam is unremarkable. No scleral icterus . Neck is without jugular venous distension, thyromegaly, or carotid bruits. Lungs are clear to auscultation. Cardiac exam reveals regular rate and Rhythm. Abdominal exam reveals normal bowel sounds, no masses, no organomegaly and no aortic enlargement. Extremities are nonedematous and both femoral and pedal pulses are normal. 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 - Constitutional Vitals: Temp Pulse Resp BP Pulse Ox 98.9 F 129 H 23 126/83 93 03/22/19 08:00 03/22/19 11:59 03/22/19 11:34 03/22/19 11:59 03/22/19 11:59 General appearance: Present: severe distress, obese Results - Labs CBC & Chem 7: 03/22/19 08:00 03/22/19 08:00 Labs: Laboratory Last Values WBC 36.7 K/mm3 (4.5-11.0) H 03/22/19 08:00 RBC 3.94 M/mm3 (3.65-5.03) 03/22/19 08:00 Hgb 11.0 gm/dl (11.8-15.2) L 03/22/19 08:00 Hct 33.5 % (35.5-45.6) L 03/22/19 08:00 MCV 85 fl (84-94) 03/22/19 08:00 MCH 28 pg (28-32) 03/22/19 08:00 MCHC 33 % (32-34) 03/22/19 08:00 RDW 15.5 % (13.2-15.2) H 03/22/19 08:00 Plt Count 43 K/mm3 (140-440) L 03/22/19 08:00 [place] % (Auto) 1.6 % (0.0-7.3) 03/21/19 04:26 [place] # 0.6 K/mm3 (0.0-0.8) 03/21/19 04:26 Add Manual Diff Complete 03/21/19 04:26 Total Counted 100 03/21/19 04:26 Seg Neutrophils % Still Tender 03/22/19 08:00 Seg Neuts % (Manual) 93.0 % (40.0-70.0) H 03/21/19 04:26 0 % 03/21/19 04:26 3.0 % (13.4-35.0) L 03/21/19 04:26 Reactive Lymphs % (Man) 0 % 03/21/19 04:26 2.0 % (0.0-7.3) 03/21/19 04:26 0 % (0.0-4.3) 03/21/19 04:26 0 % (0.0-1.8) 03/21/19 04:26 2.0 % 03/21/19 04:26 0 % 03/21/19 04:26 0 % 03/21/19 04:26 0 % 03/21/19 04:26 Nucleated RBC % 1.0 % (0.0-0.9) H 03/21/19 04:26 Seg Neutrophils # 34.6 K/mm3 (1.8-7.7) H 03/21/19 04:26 Seg Neutrophils # Man 35.2 K/mm3 (1.8-7.7) H 03/21/19 04:26 Band Neutrophils # 0.0 K/mm3 03/21/19 04:26 1.1 K/mm3 (1.2-5.4) L 03/21/19 04:26 Abs React Lymphs (Man) 0.0 K/mm3 03/21/19 04:26 0.8 K/mm3 (0.0-0.8) 03/21/19 04:26 0.0 K/mm3 (0.0-0.4) 03/21/19 04:26 0.0 K/mm3 (0.0-0.1) 03/21/19 04:26 0.8 K/mm3 03/21/19 04:26 0.0 K/mm3 03/21/19 04:26 0.0 K/mm3 03/21/19 04:26 Blast Cells # 0.0 K/mm3 03/21/19 04:26 WBC Morphology Not Reportable 03/21/19 04:26 Hypersegmented Neuts Not Reportable 03/21/19 04:26 Hyposegmented Neuts Not Reportable 03/21/19 04:26 Hypogranular Neuts Not Reportable 03/21/19 04:26 Not Reportable 03/21/19 04:26 Not Reportable 03/21/19 04:26 Not Reportable 03/21/19 04:26 Not Reportable 03/21/19 04:26 Not Reportable 03/21/19 04:26 Not Reportable 03/21/19 04:26 Consistent w auto 03/21/19 04:26 Not Reportable 03/21/19 04:26 Plt Clumps, EDTA Not Reportable 03/21/19 04:26 Few 03/21/19 04:26 Rare 03/21/19 04:26 Not Reportable 03/21/19 04:26 Plt Morphology Comment Not Reportable 03/21/19 04:26 RBC Morphology Not Reportable 03/21/19 04:26 Dimorphic RBCs Not Reportable 03/21/19 04:26 Not Reportable 03/21/19 04:26 Not Reportable 03/21/19 04:26 Not Reportable 03/21/19 04:26 Few 03/21/19 04:26 Not Reportable 03/21/19 04:26 Not Reportable 03/21/19 04:26 Not Reportable 03/21/19 04:26 Not Reportable 03/21/19 04:26 Not Reportable 03/21/19 04:26 Not Reportable 03/21/19 04:26 Not Reportable 03/21/19 04:26 Not Reportable 03/21/19 04:26 Not Reportable 03/21/19 04:26 Not Reportable 03/21/19 04:26 Not Reportable 03/21/19 04:26 Not Reportable 03/21/19 04:26 Not Reportable 03/21/19 04:26 Not Reportable 03/21/19 04:26 Not Reportable 03/21/19 04:26 Acanthocytes (Spur) Not Reportable 03/21/19 04:26 Rouleaux Not Reportable 03/21/19 04:26 Not Reportable 03/21/19 04:26 Not Reportable 03/21/19 04:26 Not Reportable 03/21/19 04:26 Not Reportable 03/21/19 04:26 Hem Pathologist Commnt No 03/21/19 04:26 PT 15.9 Sec. (12.2-14.9) H 03/16/19 17:05 INR 1.30 (0.87-1.13) H 03/16/19 17:05 APTT 31.7 Sec. (24.2-36.6) 03/16/19 17:05 POC ABG pH 7.283 (7.35-7.45) L 03/22/19 05:08 ABG pH 7.265 pH Units (7.350-7.450) L 03/19/19 05:35 POC ABG pCO2 42.0 (35-45) 03/22/19 05:08 ABG pCO2 45.5 mm Hg 03/19/19 05:35 POC ABG pO2 53 (80-105) L 03/22/19 05:08 ABG pO2 35.4 mm Hg (80.0-90.0) L* 03/19/19 05:35 POC ABG HCO3 19.9 (22-26 mml/L) 03/22/19 05:08 ABG HCO3 20.2 mmol/L (20.0-26.0) 03/19/19 05:35 POC ABG Total CO2 21 (23-27mmol/L) 03/22/19 05:08 POC ABG O2 Sat 83 03/22/19 05:08 ABG O2 Saturation 54.4 % (95.0-99.0) L 03/19/19 05:35 ABG O2 Content 9.7 (0.0-44) 03/19/19 05:35 POC ABG Base Excess -7 ((-2) - (+3)mmol/L) 03/22/19 05:08 ABG Base Excess -6.7 mmol/L (-2.0-3.0) L 03/19/19 05:35 ABG Hemoglobin 12.9 gm/dl (14.0-18.0) L 03/19/19 05:35 ABG Carboxyhemoglobin 1.0 % (0.0-5.0) 03/19/19 05:35 ABG Methemoglobin 0.8 % (0.0-1.5) 03/19/19 05:35 53.4 % (95.0-99.0) L 03/19/19 05:35 40 % 03/22/19 05:08 Sodium 132 mmol/L (137-145) L 03/22/19 08:00 Potassium 5.6 mmol/L (3.6-5.0) H 03/22/19 08:00 Chloride 89.6 mmol/L (98-107) L 03/22/19 08:00 Carbon Dioxide 20 mmol/L (22-30) L 03/22/19 08:00 28 mmol/L 03/22/19 08:00 BUN 101 mg/dL (9-20) H 03/22/19 08:00 7.4 mg/dL (0.8-1.5) H 03/22/19 08:00 Estimated GFR 10 ml/min 03/22/19 08:00 14 % 03/22/19 08:00 Glucose 124 mg/dL (75-100) H 03/22/19 08:00 POC Glucose 131 (70-105) H 03/22/19 05:51 Lactic Acid 1.90 mmol/L (0.7-2.0) 03/21/19 21:31 Calcium 5.2 mg/dL (8.4-10.2) L* 03/22/19 08:00 Phosphorus 7.30 mg/dL (2.5-4.5) H 03/17/19 03:45 Magnesium 2.40 mg/dL (1.7-2.3) H 03/18/19 08:40 2.80 mg/dL (0.1-1.2) H 03/22/19 08:00 5.9 mg/dL (0-0.2) H 03/16/19 17:05 0.3 mg/dL 03/16/19 17:05 AST 119 units/L (5-40) H 03/22/19 08:00 ALT 86 units/L (7-56) H 03/22/19 08:00 245 units/L (35-129) H 03/22/19 08:00 64206 units/L (55-170) H 03/21/19 08:29 CK-MB (CK-2) 54.3 ng/mL (0.0-4.0) H 03/17/19 07:16 CK-MB (CK-2) Rel Index 0.0 (0-4) 03/17/19 07:16 0.058 ng/mL (0.00-0.029) H 03/17/19 07:16 13.30 mg/dL (0.00-1.30) H 03/20/19 14:45 5.6 g/dL (6.3-8.2) L 03/22/19 08:00 2.5 g/dL (3.9-5) L 03/22/19 08:00 0.8 % 03/22/19 08:00 Triglycerides 395 mg/dL (2-149) H 03/16/19 22:32 Cholesterol 88 mg/dL (50-199) 03/16/19 22:32 10 mg/dL (50-130) L 03/16/19 22:32 7 mg/dL (40-59) L 03/16/19 22:32 12.57 % 03/16/19 22:32 TSH 2.200 mlU/mL (0.270-4.200) 03/16/19 17:05 Free T4 0.72 ng/dL (0.76-1.46) L 03/16/19 17:05 Kathy (Yellow) 03/17/19 16:05 Cloudy (Clear) 03/17/19 16:05 5.0 (5.0-7.0) 03/17/19 16:05 Ur Specific [place] 1.014 (1.003-1.030) 03/17/19 16:05 >500 mg/dL (Negative) 03/17/19 16:05 50 mg/dL (Negative) 03/17/19 16:05 Tr mg/dL (Negative) 03/17/19 16:05 Lg (Negative) 03/17/19 16:05 Neg (Negative) 03/17/19 16:05 Neg (Negative) 03/17/19 16:05 < 2.0 mg/dL (<2.0) 03/17/19 16:05 Ur Leukocyte Esterase Mod (Negative) 03/17/19 16:05 30.0 /HPF (0.0-6.0) H 03/17/19 16:05 11.0 /HPF (0.0-6.0) 03/17/19 16:05 U Epithel Cells (Auto) < 1.0 /HPF (0-13.0) 03/17/19 16:05 Few /HPF 03/17/19 16:05 2+ /HPF (ICE CREAM MAN) 03/17/19 16:05 None seen (None Seen) 03/17/19 16:05 106.6 mg/dL (0.1-20.0) H 03/17/19 16:05 95 mmol/L 03/17/19 16:05 Vancomycin Trough 11.5 ug/mL (5.0-20.0) 03/18/19 13:19 Random Vancomycin 11.3 ug/mL (0-40.0) 03/21/19 04:26 Salicylates < 0.3 mg/dL (2.8-20.0) L 03/16/19 17:05 Presumptive negative 03/17/19 16:05 Presumptive negative 03/17/19 16:05 Acetaminophen < 5.0 ug/mL (10.0-30.0) L 03/16/19 17:05 Ur Barbiturates Screen Presumptive negative 03/17/19 16:05 Ur Phencyclidine Scrn Presumptive negative 03/17/19 16:05 Ur Amphetamines Screen Presumptive negative 03/17/19 16:05 U Benzodiazepines Scrn Presumptive positive 03/17/19 16:05 Presumptive negative 03/17/19 16:05 U Marijuana (THC) Screen Presumptive negative 03/17/19 16:05 Disclamer 03/17/19 16:05 Plasma/Serum Alcohol < 0.01 % (0-0.07) 03/16/19 17:05 Hepatitis A IgM Ab Non-reactive (NonReactive) 03/18/19 13:18 Hep Bs Antigen Non-reactive (Negative) 03/18/19 13:18 Hep B Core IgM Ab Non-reactive (NonReactive) 03/18/19 13:18 Non-reactive (NonReactive) 03/18/19 13:18 HIV 1&2 Antibody Rapid Non react (Non React) 03/17/19 11:52 Non react (Non React) 03/17/19 11:52 Influenza A (Rapid) Negative (Negative) 03/17/19 17:00 Influenza B (Rapid) Negative (Negative) 03/17/19 17:00 Group A Strep Rapid Negative (Negative) 03/17/19 17:00 Active Medications - Current Medications Current Medications: Generic Name Dose Route Start Last Admin Trade Name Freq PRN Reason Stop Dose Admin Acetaminophen 650 mg 03/16/19 22:22 03/17/19 18:49 Tylenol NV 650 mg Q4H PRN Administration Fever >101 Albuterol/Ipratropium 1 ampul 03/19/19 20:00 03/22/19 11:29 Duoneb *Not For Prn Use* IH 1 ampul Q4HRT PAOLO Administration Lipase/Protease/Amylase 1 each 03/17/19 14:45 Pancreaze 10,500 Unit FEEDTUBE PRN PRN For Clogged Feeding Tube Dextrose 50 gm 03/19/19 18:39 D50w (25gm) Vial IV PRN PRN Hypoglycemia Famotidine 20 mg 03/20/19 10:00 03/22/19 09:42 Pepcid IV 20 mg DAILY PAOLO Administration Fentanyl 50 mcg 03/16/19 16:06 03/16/19 17:02 Sublimaze IV 50 mcg Q10MIN PRN Administration ANALGESIA Fentanyl 25 mcg 03/19/19 18:33 03/20/19 02:53 Sublimaze IV 25 mcg Q2H PRN Administration Pain, Moderate (4-6) Hydrocortisone Sodium Succinate 100 mg 03/18/19 20:00 03/21/19 21:00 Solu-Cortef IV 100 mg Q8H PAOLO Administration Hydrophilic Ointment 1 applic 03/16/19 15:50 Vaseline Lip Therapy TP Q2HR PRN Dry Lips Midazolam HCl 100 mg/ Sodium 100 mls @ 2 mls/hr 03/16/19 16:00 03/19/19 18:45 Chloride IV 0 mg/hr TITR PAOLO 0 mls/hr Titration Protocol 2 MG/HR Fentanyl Citrate 2,000 mcg in 100 mls @ 6.804 mls/hr 03/16/19 17:00 03/22/19 04:50 Fentanyl Drip Premix IV 1 mcg/kg/hr TITR PAOLO 6.804 mls/hr Administration Protocol 1 MCG/KG/HR Vasopressin 20 unit/ Sodium 101 mls @ 9.09 mls/hr 03/16/19 23:45 03/22/19 12:00 Chloride IV Infused TITR PAOLO Titration Protocol 0.03 UNITS/MIN Norepinephrine 8 mg/ Sodium 250 mls @ 3.75 mls/hr 03/17/19 02:00 03/22/19 11:24 Chloride IV 6 mcg/min TITR PAOLO 11.25 mls/hr Titration Protocol 2 MCG/MIN Phenylephrine HCl 100 mg/ 100 mls @ 3 mls/hr 03/17/19 02:30 03/19/19 18:48 Sodium Chloride IV Infused TITR PAOLO Titration Protocol 50 MCG/MIN Ceftriaxone Sodium 2 gm in 100 mls @ 200 mls/hr 03/17/19 12:00 03/22/19 09:43 Rocephin/Ns 2 Gm/100 Ml IV 200 mls/hr Q12HR PAOLO Administration Protocol Doxycycline Hyclate 100 mg/ 250 mls @ 250 mls/hr 03/17/19 12:00 03/22/19 09:42 Sodium Chloride IV 250 mls/hr Q12HR PAOLO Administration Protocol Dopamine HCl/Dextrose 800 mg in 250 mls @ 5.103 mls/hr 03/17/19 23:00 03/20/19 12:54 Intropin Drip 800 Mg/D5w 250 Ml IV 0 mcg/kg/min TITR PAOLO 0 mls/hr Titration Protocol 2 MCG/KG/MIN Amiodarone HCl 900 mg/ 500 mls @ 33.333 mls/hr 03/18/19 17:00 03/22/19 00:34 Dextrose IV 1 mg/min DIRECT PAOLO 33.333 mls/hr Administration Protocol 1 MG/MIN Sodium Chloride 100 mls @ 999 mls/hr 03/20/19 11:00 Nacl 0.9% IV NEYMAR PRN Hypotension Sodium Chloride 100 mls @ 999 mls/hr 03/22/19 10:21 Nacl 0.9% IV NEYMAR PRN Hypotension Propofol 1,000 mg in 100 mls @ 4.572 mls/hr 03/22/19 12:00 Diprivan 10 Mg/Ml IV TITR PAOLO Protocol 5 MCG/KG/MIN Metoclopramide HCl 5 mg 03/21/19 19:00 03/22/19 07:55 Reglan IV 5 mg Q6H PAOLO Administration Midazolam HCl 2 mg 03/16/19 15:50 03/20/19 14:23 Versed IV 2 mg Q10MIN PRN Administration Sedation Midodrine 10 mg 03/18/19 20:00 03/22/19 04:50 Proamatine PO 10 mg Q8H PAOLO Administration Multi-Ingred Cream/Lotion/Oil/Oint 1 applic 03/16/19 15:50 03/19/19 20:10 Artificial Tears Ophth Oint OU 1 applic Q4HR PRN Administration Dry Eye(s) Ondansetron HCl 4 mg 03/16/19 22:21 Zofran IV Q8H PRN Nausea And Vomiting Simple Syrup 15 ml 03/17/19 14:45 Simple Syrup FEEDTUBE PRN PRN Hypoglycemia Simple Syrup 30 ml 03/17/19 14:45 Simple Syrup FEEDTUBE PRN PRN Hypoglycemia Sodium Bicarbonate 325 mg 03/17/19 14:45 Sodium Bicarbonate FEEDTUBE PRN PRN For Clogged Feeding Tube Nutrition/Malnutrition Assess - Dietary Evaluation Nutrition/Malnutrition Findings: Nutrition Notes Start: 03/17/19 14:22 Freq: Status: Active Protocol: Document 03/20/19 11:02 LM (Rec: 03/20/19 11:23 LM [id number]) Nutrition Notes Initial or Follow up Reassessment Current Diagnosis Acute Kidney Injury Other Pertinent Diagnosis Septic shock,Multiple organ failure, encephalopathy, rhabdomyolysis Current Diet no diet ordered Labs/Tests Na 131 BUN 68 Cr 6.1 BG 164 Pertinent Medications Norepinephrine, Vasopressin, Phenylephrine, Dopamine Height 6 ft Weight 152.4 kg [place] Body Weight (kg) 80.90 BMI 45.6 Weight change and time frame Wt change noted. Pt with edema and poor urine output. Subjective/Other Information Pt still on multiple pressors. TF still on hold. Burn Absent Trauma Absent Minimum of two criteria No #1 Nutrition Diagnosis Inadequate oral intake Diagnosis Progress(for reassessment Continues documentation) Is patient on ventilator? Yes Is Patient Ambulatory and/or Out of Bed No REE-([place]-confined to bed) 2938.896 Kcal/Kg value to use for calculation 15 Approximate Energy Requirements Using 2286 kcal/Kg Calculation Used for Recommendations Kcal/kg Additional Notes Protein Needs: 202g (2.5g/kg IBW 80.9) Fluid Needs: 1 ml/kcal or per MD Nutrition Intervention Change Diet Order: Recommend TF when medically feasible Nutrition Support: [place]ro 1.8 at 55 ml/hr Flush 150 ml q4hr for hyponatremia Kcal 2,376 Protein (gm) 107 Fluid (mL) 960 Goal #1 Start TF when medically feasible Anticipated Discharge Needs: Unable to determine at this time Follow-Up By: 03/22/19 Additional Comments Follow for POC
--- NOTE | 2019-03-22 12:19 | Progress Note ---
Assessment and Plan Continue supportive measures. He continues to require multiple vasopressors. He does not appear to be tolerating PO intake/tube feeding at this time. Can consider ischemic evaluation if/when medically stabilized. Overall guarded prognosis. The patient has been seen in conjunction with Dr. Echaavrria who agrees with the assessment and plan of care. - Patient Problems (1) Cardiopulmonary arrest Current Visit: Yes Status: Acute (2) Acute respiratory failure Current Visit: Yes Status: Acute (3) SVT (supraventricular tachycardia) Current Visit: Yes Status: Resolved (4) Torsades de pointes Current Visit: Yes Status: Acute (5) Ventricular tachycardia Current Visit: Yes Status: Acute (6) Altered mental status Current Visit: Yes Status: Acute (7) Septic shock Current Visit: Yes Status: Acute (8) Aspiration pneumonia Current Visit: Yes Status: Acute (9) Acute renal failure Current Visit: Yes Status: Acute (10) Elevated LFTs Current Visit: Yes Status: Acute (11) Thrombocytopenia Current Visit: Yes Status: Acute (12) Enteritis Current Visit: Yes Status: Suspected (13) Atrial fibrillation with RVR Current Visit: Yes Status: Acute Subjective Date of service: 03/22/19 Principal diagnosis: Septic Shock; Ac. hypoxemic resp failure; Renzo. PNA; Rhabdomyolysis; RUBEN Interval history: pt remains intubated, moving arms and legs, no purposeful response noted, requiring multiple vasopressors, on amio gtt. in SR on tele. no family at bedside. Objective Last Vital Signs Temp 98.9 F 03/22/19 08:00 Pulse 129 H 03/22/19 11:59 Resp 23 03/22/19 11:34 BP 126/83 03/22/19 11:59 Pulse Ox 93 03/22/19 11:59 - Physical Examination General: Other (intubated) HEENT: Positive: PERRL Neck: Positive: neck supple Cardiac: Positive: Reg Rate and Rhythm, S1/S2 Lungs: Positive: Decreased Breath Sounds, Ventilated Respirations Neuro: Positive: Other (intubated) Abdomen: Positive: Unremarkable /Rectal: Other (deferred) Skin: Positive: Clear Musculoskeletal: Decreased Range of Motion Extremities: Present: lower extr. pulses (weak, thready ) - Labs and Meds Cardiac Enzymes 03/22/19 Range/Units 08:00 AST 119 H (5-40) units/L CBC 03/22/19 Range/Units 08:00 WBC 36.7 H (4.5-11.0) K/mm3 RBC 3.94 (3.65-5.03) M/mm3 Hgb 11.0 L (11.8-15.2) gm/dl Hct 33.5 L (35.5-45.6) % Plt Count 43 L (140-440) K/mm3 Comprehensive Metabolic Panel 03/22/19 Range/Units 08:00 Sodium 132 L (137-145) mmol/L Potassium 5.6 H (3.6-5.0) mmol/L Chloride 89.6 L (98-107) mmol/L Carbon Dioxide 20 L (22-30) mmol/L BUN 101 H (9-20) mg/dL Creatinine 7.4 H (0.8-1.5) mg/dL Glucose 124 H (75-100) mg/dL Calcium 5.2 L* (8.4-10.2) mg/dL AST 119 H (5-40) units/L ALT 86 H (7-56) units/L Alkaline Phosphatase 245 H (35-129) units/L Total Protein 5.6 L (6.3-8.2) g/dL Albumin 2.5 L (3.9-5) g/dL - Imaging and Cardiology Echo: report reviewed ( EF 40-45%, impaired relaxation. ) - Allied health notes Allied health notes reviewed: nursing
[2019-03-22] MEDS: PROPOFOL 1,000 MG/100 ML BOTTLE IV SCH (12:25)
[2019-03-22 12:48] LABS: Anisocytosis Few; Large Platelets Rare; Platelet Estimate Consistent w Auto; Stomatocytes Few
--- NOTE | 2019-03-22 14:58 | Progress Note ---
Assessment and Plan 43 yo M with 1. septic shock 2. RUBEN 3. rhabdomyolysis 4. AMS 5. multiorgan failure 6. electrolyte abnormalities 7. right axillary cellulitis Plan: 1. neuro - sedation as needed. Neuro on board. 2. CV - wean pressors as tolerated - currently on levophed on 10mcg and on PO midodrine, DVT ppx. CBC daily - monitor thrombocytopenia. 3. Resp - vent management per ICU, wean PEEP as tolerated 4. GI - GI ppx. NPO, hold TF due to intolerate. OGT to LIWS. Now on reglan. Will reeval for restarting TF in am 5. - garcia. monitor Vp Treasurer, CK. HD per nephro 6. ID - ID on board, continue abx. LP pending improvement in plts and stability. R axillary u/s - edema, no abscess. UA + 7. Endo - blood glucose monitoring 8. Tox - UDS negative. 9. FEN - replace lytes aggressively. NPO, BMP daily Pt critically ill. He continues to have a benign abdominal exam, without evidence of peritonitis and no definitive indication for surgical intervention. Recommend continuing supportive care as above. Discussed with Dr. Jj. Will follow. Thank you, please call with questions. Subjective Date of service: 03/22/19 Narrative: Pt seen and examined. No urine output. Now only on levophed but getting scheduled midodrine. Did not tolerate TF and had one episode of emesis. Objective Vital Signs - 12hr 03/22/19 03/22/19 03/22/19 03:01 03:15 03:30 Temperature Pulse Rate 115 H 75 127 H Pulse Rate [ Anterior Bilateral Throughout] Pulse Rate [ From Monitor] Respiratory 20 24 20 Rate Respiratory Rate [Anterior Bilateral Throughout] Blood Pressure 103/49 131/78 130/81 O2 Sat by Pulse 92 89 88 Oximetry O2 Sat by Pulse Oximetry [ Anterior Bilateral Throughout] 03/22/19 03/22/19 03/22/19 03:45 04:00 04:01 Temperature 98.9 F Pulse Rate 120 H 85 112 H Pulse Rate [ Anterior Bilateral Throughout] Pulse Rate [ 108 H From Monitor] Respiratory 24 22 27 H Rate Respiratory Rate [Anterior Bilateral Throughout] Blood Pressure 130/81 114/75 O2 Sat by Pulse 86 95 86 Oximetry O2 Sat by Pulse Oximetry [ Anterior Bilateral Throughout] 03/22/19 03/22/19 03/22/19 04:15 04:31 04:35 Temperature Pulse Rate 121 H 111 H Pulse Rate [ 108 H Anterior Bilateral Throughout] Pulse Rate [ From Monitor] Respiratory 28 H 24 Rate Respiratory 22 Rate [Anterior Bilateral Throughout] Blood Pressure 114/75 118/69 O2 Sat by Pulse 87 82 L Oximetry O2 Sat by Pulse Oximetry [ Anterior Bilateral Throughout] 03/22/19 03/22/19 03/22/19 04:45 05:01 05:07 Temperature Pulse Rate 122 H 112 H 106 H Pulse Rate [ Anterior Bilateral Throughout] Pulse Rate [ From Monitor] Respiratory 17 17 Rate Respiratory Rate [Anterior Bilateral Throughout] Blood Pressure 118/69 110/63 122/69 O2 Sat by Pulse 91 88 91 Oximetry O2 Sat by Pulse Oximetry [ Anterior Bilateral Throughout] 03/22/19 03/22/19 03/22/19 05:15 05:31 05:45 Temperature Pulse Rate 83 86 120 H Pulse Rate [ Anterior Bilateral Throughout] Pulse Rate [ From Monitor] Respiratory 22 21 20 Rate Respiratory Rate [Anterior Bilateral Throughout] Blood Pressure 110/63 62/26 62/26 O2 Sat by Pulse 83 L 84 84 Oximetry O2 Sat by Pulse Oximetry [ Anterior Bilateral Throughout] 03/22/19 03/22/19 03/22/19 06:01 06:15 06:31 Temperature Pulse Rate 129 H 76 86 Pulse Rate [ Anterior Bilateral Throughout] Pulse Rate [ From Monitor] Respiratory 28 H 22 20 Rate Respiratory Rate [Anterior Bilateral Throughout] Blood Pressure 62/26 62/26 107/62 O2 Sat by Pulse 72 L 84 87 Oximetry O2 Sat by Pulse Oximetry [ Anterior Bilateral Throughout] 03/22/19 03/22/19 03/22/19 06:45 07:00 07:15 Temperature Pulse Rate 100 H 113 H 106 H Pulse Rate [ Anterior Bilateral Throughout] Pulse Rate [ From Monitor] Respiratory 18 14 13 Rate Respiratory Rate [Anterior Bilateral Throughout] Blood Pressure 107/62 111/66 107/62 O2 Sat by Pulse 86 88 88 Oximetry O2 Sat by Pulse Oximetry [ Anterior Bilateral Throughout] 03/22/19 03/22/19 03/22/19 07:30 07:43 07:45 Temperature Pulse Rate 110 H 78 112 H Pulse Rate [ Anterior Bilateral Throughout] Pulse Rate [ From Monitor] Respiratory 14 20 Rate Respiratory Rate [Anterior Bilateral Throughout] Blood Pressure 110/51 110/51 111/66 O2 Sat by Pulse 87 87 87 Oximetry O2 Sat by Pulse Oximetry [ Anterior Bilateral Throughout] 03/22/19 03/22/19 03/22/19 07:54 08:00 08:15 Temperature 98.9 F Pulse Rate 119 H 112 H Pulse Rate [ 75 Anterior Bilateral Throughout] Pulse Rate [ 119 H From Monitor] Respiratory 23 25 H Rate Respiratory 20 Rate [Anterior Bilateral Throughout] Blood Pressure 111/61 110/51 O2 Sat by Pulse 95 85 Oximetry O2 Sat by Pulse Oximetry [ Anterior Bilateral Throughout] 03/22/19 03/22/19 03/22/19 08:30 08:45 09:00 Temperature Pulse Rate 126 H 115 H 120 H Pulse Rate [ Anterior Bilateral Throughout] Pulse Rate [ From Monitor] Respiratory 19 19 22 Rate Respiratory Rate [Anterior Bilateral Throughout] Blood Pressure 118/67 118/67 104/64 O2 Sat by Pulse 83 L 92 87 Oximetry O2 Sat by Pulse Oximetry [ Anterior Bilateral Throughout] 03/22/19 03/22/19 03/22/19 09:15 09:30 09:45 Temperature Pulse Rate 102 H 80 77 Pulse Rate [ Anterior Bilateral Throughout] Pulse Rate [ From Monitor] Respiratory 22 24 23 Rate Respiratory Rate [Anterior Bilateral Throughout] Blood Pressure 104/64 106/64 106/64 O2 Sat by Pulse 90 87 89 Oximetry O2 Sat by Pulse Oximetry [ Anterior Bilateral Throughout] 03/22/19 03/22/19 03/22/19 10:00 10:15 10:30 Temperature Pulse Rate 76 76 111 H Pulse Rate [ Anterior Bilateral Throughout] Pulse Rate [ From Monitor] Respiratory 24 24 22 Rate Respiratory Rate [Anterior Bilateral Throughout] Blood Pressure 109/47 109/47 114/93 O2 Sat by Pulse 87 88 86 Oximetry O2 Sat by Pulse Oximetry [ Anterior Bilateral Throughout] 03/22/19 03/22/19 03/22/19 10:45 11:00 11:14 Temperature Pulse Rate 124 H 113 H 128 H Pulse Rate [ Anterior Bilateral Throughout] Pulse Rate [ From Monitor] Respiratory 21 20 Rate Respiratory Rate [Anterior Bilateral Throughout] Blood Pressure 109/47 111/84 111/84 O2 Sat by Pulse 82 L 83 L 94 Oximetry O2 Sat by Pulse Oximetry [ Anterior Bilateral Throughout] 03/22/19 03/22/19 03/22/19 11:15 11:30 11:34 Temperature Pulse Rate 117 H 86 Pulse Rate [ 112 H Anterior Bilateral Throughout] Pulse Rate [ From Monitor] Respiratory 21 26 H Rate Respiratory 23 Rate [Anterior Bilateral Throughout] Blood Pressure 114/93 100/71 O2 Sat by Pulse 93 95 Oximetry O2 Sat by Pulse Oximetry [ Anterior Bilateral Throughout] 03/22/19 03/22/19 03/22/19 11:45 11:59 12:00 Temperature 97.6 F Pulse Rate 114 H 129 H 74 Pulse Rate [ Anterior Bilateral Throughout] Pulse Rate [ 74 From Monitor] Respiratory 22 23 Rate Respiratory Rate [Anterior Bilateral Throughout] Blood Pressure 111/75 126/83 121/82 O2 Sat by Pulse 96 93 98 Oximetry O2 Sat by Pulse Oximetry [ Anterior Bilateral Throughout] 03/22/19 03/22/19 03/22/19 12:15 12:30 12:45 Temperature Pulse Rate 124 H 110 H 77 Pulse Rate [ Anterior Bilateral Throughout] Pulse Rate [ From Monitor] Respiratory 21 27 H 24 Rate Respiratory Rate [Anterior Bilateral Throughout] Blood Pressure 111/75 100/52 100/52 O2 Sat by Pulse 94 96 96 Oximetry O2 Sat by Pulse Oximetry [ Anterior Bilateral Throughout] 03/22/19 03/22/19 03/22/19 13:00 13:15 13:30 Temperature 99.4 F Pulse Rate 76 73 74 Pulse Rate [ Anterior Bilateral Throughout] Pulse Rate [ From Monitor] Respiratory 20 20 19 Rate Respiratory Rate [Anterior Bilateral Throughout] Blood Pressure 93/47 96/54 94/51 O2 Sat by Pulse 96 96 97 Oximetry O2 Sat by Pulse 98 Oximetry [ Anterior Bilateral Throughout] 03/22/19 03/22/19 03/22/19 13:45 14:00 14:15 Temperature Pulse Rate 73 73 74 Pulse Rate [ Anterior Bilateral Throughout] Pulse Rate [ From Monitor] Respiratory 23 24 Rate Respiratory Rate [Anterior Bilateral Throughout] Blood Pressure 103/51 105/53 116/73 O2 Sat by Pulse 98 98 Oximetry O2 Sat by Pulse Oximetry [ Anterior Bilateral Throughout] 03/22/19 14:30 Temperature Pulse Rate 73 Pulse Rate [ Anterior Bilateral Throughout] Pulse Rate [ From Monitor] Respiratory Rate Respiratory Rate [Anterior Bilateral Throughout] Blood Pressure 121/76 O2 Sat by Pulse Oximetry O2 Sat by Pulse Oximetry [ Anterior Bilateral Throughout] - General physical appearance Narrative Exam: Gen: Sedated on vent. NAD ENT: ETT in place. OGT to LIWS with bilious output CV; s1, S2+ resp: on vent Abd: soft, NT, ND Ext: pitting edema of b/l LE. Toes and feet appear pink and are warm. R axillary cellulitis resolved with minimal residual induration : garcia without urine - Labs 03/22/19 08:00 03/22/19 08:00 Diabetes panel 03/22/19 Range/Units 08:00 Sodium 132 L (137-145) mmol/L Potassium 5.6 H (3.6-5.0) mmol/L Chloride 89.6 L (98-107) mmol/L Carbon Dioxide 20 L (22-30) mmol/L BUN 101 H (9-20) mg/dL Creatinine 7.4 H (0.8-1.5) mg/dL Glucose 124 H (75-100) mg/dL Calcium 5.2 L* (8.4-10.2) mg/dL AST 119 H (5-40) units/L ALT 86 H (7-56) units/L Alkaline Phosphatase 245 H (35-129) units/L Total Protein 5.6 L (6.3-8.2) g/dL Albumin 2.5 L (3.9-5) g/dL Calcium panel 03/22/19 Range/Units 08:00 Calcium 5.2 L* (8.4-10.2) mg/dL Albumin 2.5 L (3.9-5) g/dL Pituitary panel 03/22/19 Range/Units 08:00 Sodium 132 L (137-145) mmol/L Potassium 5.6 H (3.6-5.0) mmol/L Chloride 89.6 L (98-107) mmol/L Carbon Dioxide 20 L (22-30) mmol/L BUN 101 H (9-20) mg/dL Creatinine 7.4 H (0.8-1.5) mg/dL Glucose 124 H (75-100) mg/dL Calcium 5.2 L* (8.4-10.2) mg/dL Adrenal panel 03/22/19 Range/Units 08:00 Sodium 132 L (137-145) mmol/L Potassium 5.6 H (3.6-5.0) mmol/L Chloride 89.6 L (98-107) mmol/L Carbon Dioxide 20 L (22-30) mmol/L BUN 101 H (9-20) mg/dL Creatinine 7.4 H (0.8-1.5) mg/dL Glucose 124 H (75-100) mg/dL Calcium 5.2 L* (8.4-10.2) mg/dL Total Bilirubin 2.80 H (0.1-1.2) mg/dL AST 119 H (5-40) units/L ALT 86 H (7-56) units/L Alkaline Phosphatase 245 H (35-129) units/L Total Protein 5.6 L (6.3-8.2) g/dL Albumin 2.5 L (3.9-5) g/dL
[2019-03-22 20:55] LABS: Hematocrit 33.2 % (35.5-45.6); Hemoglobin 10.8 gm/dl (11.8-15.2); Mean Corpuscular HGB Conc 32 % (32-34); Mean Corpuscular Volume 85 fl (84-94); Red Cell Distribution Width 15.5 % (13.2-15.2)
[2019-03-22 21:45] LABS: Platelet Count 49 K/mm3 (140-440)
[2019-03-22 23:12] LABS: Band Neutrophils # (Manual) 3.4 K/mm3; Basophils % (Manual) 0 % (0.0-1.8); Eosinophils % (Manual) 0 % (0.0-4.3); Hypochromasia 1+; Total Cells Counted 200
[2019-03-22 23:14] LABS: Large Platelets Few; Platelet Estimate Appears Decreased; Stomatocytes Few
[2019-03-23] MEDS: AMIODARONE 900 MG in DEXTROSE 5% IN WATER 482 ML IV SCH ×2 (02:00→16:47)
[2019-03-23] MEDS: METOCLOPRAMIDE 10 MG/2 ML INJ IV SCH ×3 (02:01→14:14)
--- NOTE | 2019-03-23 03:15 | XRay Report ---
CHEST 1 VIEW 03/23/2019 2:39 AM INDICATION / CLINICAL INFORMATION: follow up respiratory failure. COMPARISON: 03/22/2019. FINDINGS: SUPPORT DEVICES: Stable satisfactory device positioning. HEART / MEDIASTINUM: Stable. LUNGS / PLEURA: Stable right lower lobe parenchymal opacity and mild interstitial edema. No pneumotho rax. ADDITIONAL FINDINGS: No significant additional findings. IMPRESSION: 1. No adverse change from the prior exam. Signer Name: Stuart Pacheco MD Signed: 03/23/2019 3:10 AM Workstation Name: [id number]
[2019-03-23] MEDS: PROPOFOL 1,000 MG/100 ML BOTTLE IV SCH ×3 (03:51→21:48)
[2019-03-23] MEDS: IPRATROPIUM/ALBUTEROL SULFATE 3 ML AMPUL.NEB IH SCH ×4 (04:20→16:49)
[2019-03-23] MEDS: MIDODRINE 5 MG TAB PO SCH ×3 (05:00→20:00)
[2019-03-23] MEDS: fentaNYL DRIP Premix 2,000 MCG/100 ML BAG IV SCH ×2 (05:20→23:25)
[2019-03-23] MEDS: HYDROCORTISONE SOD SUCC 100 MG/2 ML VIAL IV SCH ×3 (05:22→21:01)
[2019-03-23 06:00] LABS: Hematocrit 31.1 % (35.5-45.6); Hemoglobin 10.1 gm/dl (11.8-15.2); Mean Corpuscular HGB Conc 33 % (32-34); Mean Corpuscular Volume 87 fl (84-94); Red Blood Count 3.59 M/mm3 (3.65-5.03); Red Cell Distribution Width 15.4 % (13.2-15.2)
[2019-03-23 06:02] LABS: Platelet Count 47 K/mm3 (140-440)
[2019-03-23 06:15] LABS: Albumin 2.2 g/dL (3.9-5)
[2019-03-23 06:33] LABS: Calcium 5.3 mg/dL (8.4-10.2)
[2019-03-23 07:02] LABS: Band Neutrophils # (Manual) 0.6 K/mm3; Basophils % (Manual) 0 % (0.0-1.8); Eosinophils % (Manual) 0 % (0.0-4.3); Monocytes % (Manual) 0 % (0.0-7.3); Total Cells Counted 100
[2019-03-23 07:06] LABS: Anisocytosis Few; Platelet Estimate Consistent w Auto; Poikilocytosis Few
[2019-03-23] MEDS ORDERED: CALCIUM GLUCONATE 2,000 MG in SODIUM CHLORIDE 0.9% 100 ML IV ONE (09:00)
--- NOTE | 2019-03-23 09:23 | Progress Note ---
Assessment and Plan Severe sepsis with shock. Right axilla abscess versus localized pannus/fatty collection. Acute hypoxemic respiratory failure, on mechanical ventilator support. Likely aspiration pneumonia, bilateral. Morbid obesity. Rhabdomyolysis. Acute kidney injury on HD. Leukocytosis. Morbid obesity. Metabolic acidosis. Lactic acidosis. Hypomagnesemia. Elevated serum transaminases/possible shock liver. Acute encephalopathy, toxic metabolic versus anoxic - keep on PRVC/AC , decrease PEEP to 12, ABG in the morning - wean FiO2 for O2 sats>92% - continue to wean Levophed for target MAP > 65 mmHg - continue reglan started at 5 mg I.V. q6h, resume trophic feeding at 10 cc/hr - discontinue Femoral CVL yesterday- patient not a candidate fro PICC line because of his renal failure and thrombocytopenia. Femoral CVC is still in place an is being used for vasopressors and infusions. Will discontinue in the morning - continue HD/UF per nephrology - VAP bundle addressed - continue daily SAT's and SBT assessment as tolerated - target sedation for RASS 0 to -1, stop fentanyl and use propofol - prn analgesia per CPOT score - prn supportive blood transfusions to keep HgB > 7.0 - Monitor hemodynamics closely - Transfuse PRBC's to keep HgB > 7g/dL - continue empiric broad spectrum antiinfective's per ID recommendations (de- escalate based on clinical and microbiologic data) Currently on Rocephin, Vancomycin and Doxycycline - continue mobility protocols and off loading as tolerated for pressure ulcer prophylaxis - continue to avoid nephrotoxins, adjust all medications for GFR and CRCL - continue GI & VTE prophylaxis ( SCDs and Famotidine) - accuchecks with glycemic control per SSI for target BG of 140-180 mg/dl ac utely -steroid taper - continue other care per attending / other consultants ... attempted to reach his brother on the phone unsuccessfully to update him CONDITION: CRITICAL PROGNOSIS: GUARDED CODE STATUS: FULL CODE Discussed extensively with RT/RN and care team in ICU IDT rounds The high probability of a clinically significant, sudden or life threatening deterioration of the [respiratory, renal, neurologic and Cardiac] systems required my full and direct attention, intervention and personal management. The aggregate critical care time was 37 minutes. This time is in addition to time spent performing reported procedures but includes the following: [x] Data Review and interpretation [x] Patient assessment and monitoring of vital signs [x] Documentation [x] Medication orders and management Subjective Date of service: 03/23/19 Principal diagnosis: Septic Shock; Ac. hypoxemic resp failure; Renzo. PNA; Rhabdomyolysis; RUBEN Interval history: Patient is seen today for: Severe sepsis with shock; Acute hypoxemic respiratory failure; Aspiration pneumonia; Morbid obesity; Rhabdomyolysis; Acute kidney injury; Morbid obesity; Elevated serum transaminases/possible shock liver; Acute encephalopathy (Toxic/Met) Seen and examined at bedside; 24hour events reviewed; nursing and respiratory care staff consulted; no adverse overnight events reported to me; resting peacefully in bed; remains on vasopressors but levophed down to 4 mics/min; off vasopressin; remains critically ill on MVS;obeying simple commands, has been off fentanyl and propofol most of the morning; large volume residuals, tube feedings have been off and OGT to low intermittent suction; s/p HD yesterday, for HD today: on amiodarone at 1mcg/hour infusion; Vitals, labs, medications, chart and imaging reviewed. On full MVS AC 25/500/14/60% Objective Vital Signs - 12hr 03/22/19 03/22/19 03/22/19 21:30 21:45 22:00 Temperature Pulse Rate 126 H 126 H 123 H Pulse Rate [ Anterior Bilateral Throughout] Pulse Rate [ Apical] Pulse Rate [ 116 H From Monitor] Respiratory 19 16 23 Rate Respiratory Rate [Anterior Bilateral Throughout] Blood Pressure 127/80 134/81 120/65 O2 Sat by Pulse 97 98 97 Oximetry 03/22/19 03/22/19 03/22/19 22:14 22:15 22:24 Temperature Pulse Rate 128 H 138 H 120 H Pulse Rate [ Anterior Bilateral Throughout] Pulse Rate [ Apical] Pulse Rate [ From Monitor] Respiratory 21 22 23 Rate Respiratory Rate [Anterior Bilateral Throughout] Blood Pressure 120/65 123/70 123/70 O2 Sat by Pulse 98 98 98 Oximetry 03/22/19 03/22/19 03/22/19 22:30 22:46 23:00 Temperature Pulse Rate 73 71 71 Pulse Rate [ Anterior Bilateral Throughout] Pulse Rate [ Apical] Pulse Rate [ From Monitor] Respiratory 23 25 H 23 Rate Respiratory Rate [Anterior Bilateral Throughout] Blood Pressure 111/62 105/55 104/54 O2 Sat by Pulse 99 99 99 Oximetry 03/22/19 03/22/19 03/22/19 23:10 23:15 23:30 Temperature 99.3 F Pulse Rate 70 68 Pulse Rate [ Anterior Bilateral Throughout] Pulse Rate [ Apical] Pulse Rate [ From Monitor] Respiratory 25 H 25 H Rate Respiratory Rate [Anterior Bilateral Throughout] Blood Pressure 103/54 102/52 O2 Sat by Pulse 99 99 Oximetry 03/22/19 03/22/19 03/23/19 23:40 23:45 00:00 Temperature Pulse Rate 68 67 Pulse Rate [ 70 Anterior Bilateral Throughout] Pulse Rate [ Apical] Pulse Rate [ 67 From Monitor] Respiratory 25 H 24 Rate Respiratory 25 H Rate [Anterior Bilateral Throughout] Blood Pressure 102/52 103/52 O2 Sat by Pulse 99 98 Oximetry 03/23/19 03/23/19 03/23/19 00:15 00:30 00:45 Temperature Pulse Rate 67 66 66 Pulse Rate [ Anterior Bilateral Throughout] Pulse Rate [ Apical] Pulse Rate [ From Monitor] Respiratory 25 H 25 H 25 H Rate Respiratory Rate [Anterior Bilateral Throughout] Blood Pressure 105/52 102/52 105/51 O2 Sat by Pulse 99 99 99 Oximetry 03/23/19 03/23/19 03/23/19 01:00 01:15 01:30 Temperature Pulse Rate 66 68 66 Pulse Rate [ Anterior Bilateral Throughout] Pulse Rate [ Apical] Pulse Rate [ From Monitor] Respiratory 25 H 25 H 25 H Rate Respiratory Rate [Anterior Bilateral Throughout] Blood Pressure 101/50 104/51 100/51 O2 Sat by Pulse 99 99 99 Oximetry 03/23/19 03/23/19 03/23/19 01:45 02:00 02:15 Temperature Pulse Rate 65 65 65 Pulse Rate [ Anterior Bilateral Throughout] Pulse Rate [ Apical] Pulse Rate [ 65 From Monitor] Respiratory 25 H 24 25 H Rate Respiratory Rate [Anterior Bilateral Throughout] Blood Pressure 101/52 101/50 99/50 O2 Sat by Pulse 99 98 99 Oximetry 03/23/19 03/23/19 03/23/19 02:30 02:46 03:00 Temperature Pulse Rate 73 123 H 127 H Pulse Rate [ Anterior Bilateral Throughout] Pulse Rate [ Apical] Pulse Rate [ From Monitor] Respiratory 10 L 12 15 Rate Respiratory Rate [Anterior Bilateral Throughout] Blood Pressure 101/50 119/68 128/71 O2 Sat by Pulse 98 91 95 Oximetry 09/03/23/19 03/23/19 03:15 03:30 03:46 Temperature 99.7 F H Pulse Rate 119 H 123 H 126 H Pulse Rate [ Anterior Bilateral Throughout] Pulse Rate [ Apical] Pulse Rate [ From Monitor] Respiratory 19 12 12 Rate Respiratory Rate [Anterior Bilateral Throughout] Blood Pressure 139/73 139/73 135/78 O2 Sat by Pulse 99 98 98 Oximetry 03/23/19 03/23/19 03/23/19 04:00 04:15 04:30 Temperature Pulse Rate 127 H 96 H 111 H Pulse Rate [ Anterior Bilateral Throughout] Pulse Rate [ Apical] Pulse Rate [ From Monitor] Respiratory 27 H 26 H 22 Rate Respiratory Rate [Anterior Bilateral Throughout] Blood Pressure 123/72 122/60 109/66 O2 Sat by Pulse 98 97 97 Oximetry 03/23/19 03/23/19 03/23/19 04:45 05:00 05:15 Temperature Pulse Rate 115 H 69 68 Pulse Rate [ Anterior Bilateral Throughout] Pulse Rate [ Apical] Pulse Rate [ From Monitor] Respiratory 26 H 25 H 25 H Rate Respiratory Rate [Anterior Bilateral Throughout] Blood Pressure 118/60 105/51 100/49 O2 Sat by Pulse 98 96 96 Oximetry 03/23/19 03/23/19 03/23/19 05:30 05:45 06:00 Temperature Pulse Rate 66 67 65 Pulse Rate [ Anterior Bilateral Throughout] Pulse Rate [ Apical] Pulse Rate [ From Monitor] Respiratory 25 H 25 H 25 H Rate Respiratory Rate [Anterior Bilateral Throughout] Blood Pressure 118/61 99/52 103/49 O2 Sat by Pulse 96 97 Oximetry 03/23/19 03/23/19 03/23/19 06:15 06:30 06:45 Temperature Pulse Rate 64 64 63 Pulse Rate [ Anterior Bilateral Throughout] Pulse Rate [ Apical] Pulse Rate [ From Monitor] Respiratory 25 H 25 H 25 H Rate Respiratory Rate [Anterior Bilateral Throughout] Blood Pressure 103/50 107/51 105/50 O2 Sat by Pulse 98 97 97 Oximetry 03/23/19 03/23/19 03/23/19 07:00 07:15 07:30 Temperature Pulse Rate 63 63 84 Pulse Rate [ Anterior Bilateral Throughout] Pulse Rate [ Apical] Pulse Rate [ From Monitor] Respiratory 25 H 25 H 12 Rate Respiratory Rate [Anterior Bilateral Throughout] Blood Pressure 104/51 107/52 107/52 O2 Sat by Pulse 97 98 97 Oximetry 03/23/19 03/23/19 03/23/19 07:45 08:00 08:16 Temperature 98.7 F Pulse Rate 100 H 117 H 125 H Pulse Rate [ Anterior Bilateral Throughout] Pulse Rate [ 113 H Apical] Pulse Rate [ 113 H From Monitor] Respiratory 25 H 21 13 Rate Respiratory Rate [Anterior Bilateral Throughout] Blood Pressure 125/61 123/63 166/109 O2 Sat by Pulse 95 98 99 Oximetry 03/23/19 03/23/19 08:34 08:48 Temperature Pulse Rate 75 75 Pulse Rate [ 71 Anterior Bilateral Throughout] Pulse Rate [ Apical] Pulse Rate [ From Monitor] Respiratory Rate Respiratory 25 H Rate [Anterior Bilateral Throughout] Blood Pressure 126/61 O2 Sat by Pulse 97 Oximetry Constitutional: no acute distress, other (middle aged morbidly obese CM, normocephalic with incresed respiratory effort on MVS) Eyes: icteric ENT: oropharynx moist, other (ETT 23-24 cm PEDRO) Neck: supple, no lymphadenopathy, no JVD, other (large neck circumference) Effort: mildly labored Ascultation: Bilateral: diminished breath sounds, rales Percussion: Bilateral: not dull Cardiovascular: irregular rhythm Gastrointestinal: hypoactive bowel sounds, soft, non-tender, non-distended Integumentary: normal Extremities: no cyanosis, pink and warm, pulses normal, no ischemia or petechiae, edema Neurologic: non-focal exam (squeezes my hands on command), pupils equal and round Psychiatric: other (inable to assess) CBC and BMP: 03/23/19 05:28 03/23/19 05:28 ABG, PT/INR, D-dimer: ABG POC ABG pH 7.296 (7.35-7.45) L 03/23/19 04:49 ABG pH 7.265 pH Units (7.350-7.450) L 03/19/19 05:35 POC ABG pCO2 46.2 (35-45) H 03/23/19 04:49 ABG pCO2 45.5 mm Hg 03/19/19 05:35 POC ABG pO2 86 (80-105) 03/23/19 04:49 ABG pO2 35.4 mm Hg (80.0-90.0) L* 03/19/19 05:35 POC ABG HCO3 22.5 (22-26 mml/L) 03/23/19 04:49 POC ABG Total CO2 24 (23-27mmol/L) 03/23/19 04:49 POC ABG O2 Sat 95 03/23/19 04:49 ABG O2 Saturation 54.4 % (95.0-99.0) L 03/19/19 05:35 PT/INR, D-dimer PT 15.9 Sec. (12.2-14.9) H 03/16/19 17:05 INR 1.30 (0.87-1.13) H 03/16/19 17:05 Abnormal lab findings: Abnormal Labs 03/16/19 03/16/19 03/16/19 15:32 16:03 16:05 WBC 27.0 H RBC 5.55 H Hgb 15.7 H Hct 47.1 H RDW Plt Count 75 L Seg Neuts % (Manual) 85.0 H Lymphocytes % (Manual) 2.0 L Monocytes % (Manual) Nucleated RBC % Seg Neutrophils # Seg Neutrophils # Man 23.0 H Lymphocytes # (Manual) 0.5 L Monocytes # (Manual) PT INR POC ABG pH ABG pH POC ABG pCO2 POC ABG pO2 ABG pO2 ABG O2 Saturation ABG Base Excess ABG Hemoglobin Oxyhemoglobin Sodium 127 L Potassium Chloride 87.8 L Carbon Dioxide 17 L BUN 49 H Creatinine 5.8 H Glucose 150 H POC Glucose 118 H Lactic Acid Calcium 6.6 L Phosphorus Magnesium 1.10 L Total Bilirubin Direct Bilirubin AST ALT Alkaline Phosphatase Total Creatine Kinase 04371 H CK-MB (CK-2) Troponin T C-Reactive Protein Total Protein Albumin Triglycerides LDL Cholesterol Direct HDL Cholesterol Free T4 Urine WBC (Auto) Urine Creatinine Salicylates Acetaminophen 03/16/19 03/16/19 03/16/19 16:59 17:05 17:05 WBC RBC Hgb Hct RDW Plt Count Seg Neuts % (Manual) Lymphocytes % (Manual) Monocytes % (Manual) Nucleated RBC % Seg Neutrophils # Seg Neutrophils # Man Lymphocytes # (Manual) Monocytes # (Manual) PT INR POC ABG pH 7.297 L ABG pH POC ABG pCO2 33.0 L POC ABG pO2 ABG pO2 ABG O2 Saturation ABG Base Excess ABG Hemoglobin Oxyhemoglobin Sodium Potassium Chloride Carbon Dioxide BUN Creatinine Glucose POC Glucose Lactic Acid Calcium Phosphorus Magnesium Total Bilirubin Direct Bilirubin AST ALT Alkaline Phosphatase Total Creatine Kinase 31700 H CK-MB (CK-2) 83.1 H Troponin T C-Reactive Protein Total Protein Albumin Triglycerides LDL Cholesterol Direct HDL Cholesterol Free T4 0.72 L Urine WBC (Auto) Urine Creatinine Salicylates Acetaminophen 03/16/19 03/16/19 03/16/19 17:05 17:05 17:05 WBC RBC Hgb Hct RDW Plt Count Seg Neuts % (Manual) Lymphocytes % (Manual) Monocytes % (Manual) Nucleated RBC % Seg Neutrophils # Seg Neutrophils # Man Lymphocytes # (Manual) Monocytes # (Manual) PT INR POC ABG pH ABG pH POC ABG pCO2 POC ABG pO2 ABG pO2 ABG O2 Saturation ABG Base Excess ABG Hemoglobin Oxyhemoglobin Sodium Potassium Chloride Carbon Dioxide BUN Creatinine Glucose POC Glucose Lactic Acid 5.10 H* Calcium Phosphorus Magnesium Total Bilirubin Direct Bilirubin AST ALT Alkaline Phosphatase Total Creatine Kinase CK-MB (CK-2) Troponin T C-Reactive Protein Total Protein Albumin Triglycerides LDL Cholesterol Direct HDL Cholesterol Free T4 Urine WBC (Auto) Urine Creatinine Salicylates < 0.3 L Acetaminophen < 5.0 L 03/16/19 03/16/19 03/16/19 17:05 17:05 20:35 WBC RBC Hgb Hct RDW Plt Count Seg Neuts % (Manual) Lymphocytes % (Manual) Monocytes % (Manual) Nucleated RBC % Seg Neutrophils # Seg Neutrophils # Man Lymphocytes # (Manual) Monocytes # (Manual) PT 15.9 H INR 1.30 H POC ABG pH ABG pH POC ABG pCO2 POC ABG pO2 ABG pO2 ABG O2 Saturation ABG Base Excess ABG Hemoglobin Oxyhemoglobin Sodium Potassium Chloride Carbon Dioxide BUN Creatinine Glucose POC Glucose Lactic Acid 3.30 H* Calcium Phosphorus Magnesium Total Bilirubin 6.20 H Direct Bilirubin 5.9 H AST 800 H ALT 120 H Alkaline Phosphatase Total Creatine Kinase CK-MB (CK-2) Troponin T C-Reactive Protein Total Protein 4.4 L Albumin 2.4 L Triglycerides LDL Cholesterol Direct HDL Cholesterol Free T4 Urine WBC (Auto) Urine Creatinine Salicylates Acetaminophen 03/16/19 03/16/19 03/16/19 21:45 22:32 Unknown WBC RBC Hgb Hct RDW Plt Count Seg Neuts % (Manual) Lymphocytes % (Manual) Monocytes % (Manual) Nucleated RBC % Seg Neutrophils # Seg Neutrophils # Man Lymphocytes # (Manual) Monocytes # (Manual) PT INR POC ABG pH ABG pH POC ABG pCO2 POC ABG pO2 ABG pO2 ABG O2 Saturation ABG Base Excess ABG Hemoglobin Oxyhemoglobin Sodium Potassium Chloride Carbon Dioxide BUN Creatinine Glucose POC Glucose Lactic Acid 3.30 H* 3.00 H* Calcium Phosphorus Magnesium Total Bilirubin Direct Bilirubin AST ALT Alkaline Phosphatase Total Creatine Kinase CK-MB (CK-2) Troponin T 0.047 H D C-Reactive Protein Total Protein Albumin Triglycerides 395 H LDL Cholesterol Direct 10 L HDL Cholesterol 7 L Free T4 Urine WBC (Auto) Urine Creatinine Salicylates Acetaminophen 03/17/19 03/17/19 03/17/19 03:45 03:45 03:45 WBC RBC Hgb Hct RDW Plt Count Seg Neuts % (Manual) Lymphocytes % (Manual) Monocytes % (Manual) Nucleated RBC % Seg Neutrophils # Seg Neutrophils # Man Lymphocytes # (Manual) Monocytes # (Manual) PT INR POC ABG pH ABG pH POC ABG pCO2 POC ABG pO2 ABG pO2 ABG O2 Saturation ABG Base Excess ABG Hemoglobin Oxyhemoglobin Sodium 131 L Potassium Chloride 88.9 L Carbon Dioxide BUN 53 H Creatinine 7.1 H Glucose POC Glucose Lactic Acid 4.10 H* Calcium 5.4 L* D Phosphorus 7.30 H Magnesium 1.60 L Total Bilirubin 5.90 H Direct Bilirubin AST 801 H ALT 109 H Alkaline Phosphatase Total Creatine Kinase 84852 H 78631 H CK-MB (CK-2) 41.5 H Troponin T 0.054 H C-Reactive Protein Total Protein 4.5 L Albumin 2.0 L Triglycerides LDL Cholesterol Direct HDL Cholesterol Free T4 Urine WBC (Auto) Urine Creatinine Salicylates Acetaminophen 03/17/19 03/17/19 03/17/19 05:47 07:16 07:16 WBC RBC Hgb Hct RDW Plt Count Seg Neuts % (Manual) Lymphocytes % (Manual) Monocytes % (Manual) Nucleated RBC % Seg Neutrophils # Seg Neutrophils # Man Lymphocytes # (Manual) Monocytes # (Manual) PT INR POC ABG pH 7.193 L ABG pH POC ABG pCO2 45.2 H POC ABG pO2 65 L ABG pO2 ABG O2 Saturation ABG Base Excess ABG Hemoglobin Oxyhemoglobin Sodium Potassium Chloride Carbon Dioxide BUN Creatinine Glucose POC Glucose Lactic Acid 5.50 H* Calcium Phosphorus Magnesium Total Bilirubin Direct Bilirubin AST ALT Alkaline Phosphatase Total Creatine Kinase 15370 H CK-MB (CK-2) 54.3 H Troponin T 0.058 H C-Reactive Protein Total Protein Albumin Triglycerides LDL Cholesterol Direct HDL Cholesterol Free T4 Urine WBC (Auto) Urine Creatinine Salicylates Acetaminophen 03/17/19 03/17/19 03/17/19 11:52 12:51 13:01 WBC RBC Hgb Hct RDW Plt Count Seg Neuts % (Manual) Lymphocytes % (Manual) Monocytes % (Manual) Nucleated RBC % Seg Neutrophils # Seg Neutrophils # Man Lymphocytes # (Manual) Monocytes # (Manual) PT INR POC ABG pH 7.154 L ABG pH POC ABG pCO2 34.3 L POC ABG pO2 73 L ABG pO2 ABG O2 Saturation ABG Base Excess ABG Hemoglobin Oxyhemoglobin Sodium Potassium Chloride Carbon Dioxide BUN Creatinine Glucose POC Glucose 60 L Lactic Acid 8.20 H* Calcium Phosphorus Magnesium Total Bilirubin Direct Bilirubin AST ALT Alkaline Phosphatase Total Creatine Kinase CK-MB (CK-2) Troponin T C-Reactive Protein Total Protein Albumin Triglycerides LDL Cholesterol Direct HDL Cholesterol Free T4 Urine WBC (Auto) Urine Creatinine Salicylates Acetaminophen 03/17/19 03/17/19 03/17/19 14:37 14:37 14:37 WBC 29.3 H RBC Hgb Hct RDW 15.8 H Plt Count 45 L Seg Neuts % (Manual) 81.0 H Lymphocytes % (Manual) 1.0 L Monocytes % (Manual) 15.0 H Nucleated RBC % Seg Neutrophils # Seg Neutrophils # Man 23.7 H Lymphocytes # (Manual) 0.3 L Monocytes # (Manual) 4.4 H PT INR POC ABG pH ABG pH POC ABG pCO2 POC ABG pO2 ABG pO2 ABG O2 Saturation ABG Base Excess ABG Hemoglobin Oxyhemoglobin Sodium Potassium Chloride Carbon Dioxide BUN Creatinine Glucose POC Glucose Lactic Acid 4.90 H* Calcium Phosphorus Magnesium Total Bilirubin Direct Bilirubin AST ALT Alkaline Phosphatase Total Creatine Kinase CK-MB (CK-2) Troponin T C-Reactive Protein 24.90 H Total Protein Albumin Triglycerides LDL Cholesterol Direct HDL Cholesterol Free T4 Urine WBC (Auto) Urine Creatinine Salicylates Acetaminophen 03/17/19 03/17/19 03/17/19 16:05 16:05 17:02 WBC RBC Hgb Hct RDW Plt Count Seg Neuts % (Manual) Lymphocytes % (Manual) Monocytes % (Manual) Nucleated RBC % Seg Neutrophils # Seg Neutrophils # Man Lymphocytes # (Manual) Monocytes # (Manual) PT INR POC ABG pH 7.183 L ABG pH POC ABG pCO2 POC ABG pO2 65 L ABG pO2 ABG O2 Saturation ABG Base Excess ABG Hemoglobin Oxyhemoglobin Sodium Potassium Chloride Carbon Dioxide BUN Creatinine Glucose POC Glucose Lactic Acid Calcium Phosphorus Magnesium Total Bilirubin Direct Bilirubin AST ALT Alkaline Phosphatase Total Creatine Kinase CK-MB (CK-2) Troponin T C-Reactive Protein Total Protein Albumin Triglycerides LDL Cholesterol Direct HDL Cholesterol Free T4 Urine WBC (Auto) 30.0 H Urine Creatinine 106.6 H Salicylates Acetaminophen 03/18/19 03/18/19 03/18/19 05:12 05:16 05:53 WBC RBC Hgb Hct RDW Plt Count Seg Neuts % (Manual) Lymphocytes % (Manual) Monocytes % (Manual) Nucleated RBC % Seg Neutrophils # Seg Neutrophils # Man Lymphocytes # (Manual) Monocytes # (Manual) PT INR POC ABG pH 7.257 L ABG pH POC ABG pCO2 31.6 L POC ABG pO2 69 L ABG pO2 ABG O2 Saturation ABG Base Excess ABG Hemoglobin Oxyhemoglobin Sodium Potassium Chloride Carbon Dioxide BUN Creatinine Glucose POC Glucose 141 H Lactic Acid 5.00 H* Calcium Phosphorus Magnesium Total Bilirubin Direct Bilirubin AST ALT Alkaline Phosphatase Total Creatine Kinase CK-MB (CK-2) Troponin T C-Reactive Protein Total Protein Albumin Triglycerides LDL Cholesterol Direct HDL Cholesterol Free T4 Urine WBC (Auto) Urine Creatinine Salicylates Acetaminophen 03/18/19 03/18/19 03/18/19 06:57 08:40 08:40 WBC 31.7 H RBC Hgb Hct RDW 15.5 H Plt Count 35 L Seg Neuts % (Manual) Lymphocytes % (Manual) Monocytes % (Manual) Nucleated RBC % Seg Neutrophils # Seg Neutrophils # Man Lymphocytes # (Manual) Monocytes # (Manual) PT INR POC ABG pH ABG pH POC ABG pCO2 POC ABG pO2 ABG pO2 ABG O2 Saturation ABG Base Excess ABG Hemoglobin Oxyhemoglobin Sodium 132 L Potassium 5.5 H D Chloride 88.5 L Carbon Dioxide 18 L BUN 71 H Creatinine 8.1 H Glucose 205 H POC Glucose Lactic Acid 5.00 H* Calcium 4.1 L* D Phosphorus Magnesium 2.40 H Total Bilirubin 7.50 H Direct Bilirubin AST 1088 H ALT 159 H Alkaline Phosphatase 190 H Total Creatine Kinase 176320 H CK-MB (CK-2) Troponin T C-Reactive Protein Total Protein 4.7 L Albumin 1.8 L Triglycerides LDL Cholesterol Direct HDL Cholesterol Free T4 Urine WBC (Auto) Urine Creatinine Salicylates Acetaminophen 03/18/19 03/18/19 03/18/19 12:33 12:50 13:19 WBC RBC Hgb Hct RDW Plt Count Seg Neuts % (Manual) Lymphocytes % (Manual) Monocytes % (Manual) Nucleated RBC % Seg Neutrophils # Seg Neutrophils # Man Lymphocytes # (Manual) Monocytes # (Manual) PT INR POC ABG pH 7.282 L ABG pH POC ABG pCO2 POC ABG pO2 67 L ABG pO2 ABG O2 Saturation ABG Base Excess ABG Hemoglobin Oxyhemoglobin Sodium Potassium Chloride Carbon Dioxide BUN Creatinine Glucose POC Glucose 129 H Lactic Acid 3.30 H* Calcium Phosphorus Magnesium Total Bilirubin Direct Bilirubin AST ALT Alkaline Phosphatase Total Creatine Kinase CK-MB (CK-2) Troponin T C-Reactive Protein Total Protein Albumin Triglycerides LDL Cholesterol Direct HDL Cholesterol Free T4 Urine WBC (Auto) Urine Creatinine Salicylates Acetaminophen 03/18/19 03/18/19 03/18/19 13:19 16:50 18:11 WBC RBC Hgb Hct RDW Plt Count Seg Neuts % (Manual) Lymphocytes % (Manual) Monocytes % (Manual) Nucleated RBC % Seg Neutrophils # Seg Neutrophils # Man Lymphocytes # (Manual) Monocytes # (Manual) PT INR POC ABG pH ABG pH POC ABG pCO2 POC ABG pO2 59 L ABG pO2 ABG O2 Saturation ABG Base Excess ABG Hemoglobin Oxyhemoglobin Sodium Potassium Chloride Carbon Dioxide BUN Creatinine Glucose POC Glucose 151 H Lactic Acid Calcium 4.2 L* Phosphorus Magnesium Total Bilirubin Direct Bilirubin AST ALT Alkaline Phosphatase Total Creatine Kinase 402245 H CK-MB (CK-2) Troponin T C-Reactive Protein Total Protein Albumin Triglycerides LDL Cholesterol Direct HDL Cholesterol Free T4 Urine WBC (Auto) Urine Creatinine Salicylates Acetaminophen 03/18/19 03/18/19 03/19/19 18:20 23:39 01:42 WBC RBC Hgb Hct RDW Plt Count Seg Neuts % (Manual) Lymphocytes % (Manual) Monocytes % (Manual) Nucleated RBC % Seg Neutrophils # Seg Neutrophils # Man Lymphocytes # (Manual) Monocytes # (Manual) PT INR POC ABG pH 7.345 L ABG pH 7.285 L POC ABG pCO2 POC ABG pO2 59 L ABG pO2 44.0 L ABG O2 Saturation 70.9 L ABG Base Excess -5.7 L ABG Hemoglobin 11.9 L Oxyhemoglobin 69.6 L Sodium Potassium Chloride Carbon Dioxide BUN Creatinine Glucose POC Glucose 152 H Lactic Acid Calcium Phosphorus Magnesium Total Bilirubin Direct Bilirubin AST ALT Alkaline Phosphatase Total Creatine Kinase CK-MB (CK-2) Troponin T C-Reactive Protein Total Protein Albumin Triglycerides LDL Cholesterol Direct HDL Cholesterol Free T4 Urine WBC (Auto) Urine Creatinine Salicylates Acetaminophen 03/19/19 03/19/19 03/19/19 04:00 04:00 05:35 WBC 36.5 H RBC Hgb Hct RDW 15.8 H Plt Count 35 L Seg Neuts % (Manual) Lymphocytes % (Manual) Monocytes % (Manual) Nucleated RBC % Seg Neutrophils # Seg Neutrophils # Man Lymphocytes # (Manual) Monocytes # (Manual) PT INR POC ABG pH ABG pH 7.265 L POC ABG pCO2 POC ABG pO2 ABG pO2 35.4 L* ABG O2 Saturation 54.4 L ABG Base Excess -6.7 L ABG Hemoglobin 12.9 L Oxyhemoglobin 53.4 L Sodium 132 L Potassium 5.7 H Chloride 89.8 L Carbon Dioxide 19 L BUN 62 H Creatinine 6.4 H Glucose 151 H POC Glucose Lactic Acid Calcium 5.2 L* D Phosphorus Magnesium Total Bilirubin 7.80 H Direct Bilirubin AST 682 H ALT 130 H Alkaline Phosphatase 167 H Total Creatine Kinase CK-MB (CK-2) Troponin T C-Reactive Protein Total Protein 4.8 L Albumin 2.3 L Triglycerides LDL Cholesterol Direct HDL Cholesterol Free T4 Urine WBC (Auto) Urine Creatinine Salicylates Acetaminophen 03/19/19 03/19/19 03/19/19 05:49 09:16 09:50 WBC RBC Hgb Hct RDW Plt Count Seg Neuts % (Manual) Lymphocytes % (Manual) Monocytes % (Manual) Nucleated RBC % Seg Neutrophils # Seg Neutrophils # Man Lymphocytes # (Manual) Monocytes # (Manual) PT INR POC ABG pH 7.222 L ABG pH POC ABG pCO2 56.6 H POC ABG pO2 ABG pO2 ABG O2 Saturation ABG Base Excess ABG Hemoglobin Oxyhemoglobin Sodium Potassium Chloride Carbon Dioxide BUN Creatinine Glucose POC Glucose 154 H Lactic Acid 2.70 H* Calcium Phosphorus Magnesium Total Bilirubin Direct Bilirubin AST ALT Alkaline Phosphatase Total Creatine Kinase CK-MB (CK-2) Troponin T C-Reactive Protein Total Protein Albumin Triglycerides LDL Cholesterol Direct HDL Cholesterol Free T4 Urine WBC (Auto) Urine Creatinine Salicylates Acetaminophen 03/19/19 03/19/19 03/19/19 09:50 11:28 17:58 WBC RBC Hgb Hct RDW Plt Count Seg Neuts % (Manual) Lymphocytes % (Manual) Monocytes % (Manual) Nucleated RBC % Seg Neutrophils # Seg Neutrophils # Man Lymphocytes # (Manual) Monocytes # (Manual) PT INR POC ABG pH 7.250 L ABG pH POC ABG pCO2 52.6 H POC ABG pO2 ABG pO2 ABG O2 Saturation ABG Base Excess ABG Hemoglobin Oxyhemoglobin Sodium Potassium Chloride Carbon Dioxide BUN Creatinine Glucose POC Glucose 160 H Lactic Acid Calcium Phosphorus Magnesium Total Bilirubin Direct Bilirubin AST ALT Alkaline Phosphatase Total Creatine Kinase 48204 H CK-MB (CK-2) Troponin T C-Reactive Protein Total Protein Albumin Triglycerides LDL Cholesterol Direct HDL Cholesterol Free T4 Urine WBC (Auto) Urine Creatinine Salicylates Acetaminophen 03/19/19 03/19/19 03/20/19 19:48 21:03 02:16 WBC RBC Hgb Hct RDW Plt Count Seg Neuts % (Manual) Lymphocytes % (Manual) Monocytes % (Manual) Nucleated RBC % Seg Neutrophils # Seg Neutrophils # Man Lymphocytes # (Manual) Monocytes # (Manual) PT INR POC ABG pH 7.279 L ABG pH POC ABG pCO2 50.3 H POC ABG pO2 129 H ABG pO2 ABG O2 Saturation ABG Base Excess ABG Hemoglobin Oxyhemoglobin Sodium Potassium Chloride Carbon Dioxide BUN Creatinine Glucose POC Glucose 119 H 119 H Lactic Acid Calcium Phosphorus Magnesium Total Bilirubin Direct Bilirubin AST ALT Alkaline Phosphatase Total Creatine Kinase CK-MB (CK-2) Troponin T C-Reactive Protein Total Protein Albumin Triglycerides LDL Cholesterol Direct HDL Cholesterol Free T4 Urine WBC (Auto) Urine Creatinine Salicylates Acetaminophen 03/20/19 03/20/19 03/20/19 04:23 05:05 09:30 WBC 36.3 H RBC Hgb Hct RDW 15.5 H Plt Count 29 L Seg Neuts % (Manual) Lymphocytes % (Manual) Monocytes % (Manual) Nucleated RBC % Seg Neutrophils # Seg Neutrophils # Man Lymphocytes # (Manual) Monocytes # (Manual) PT INR POC ABG pH ABG pH POC ABG pCO2 POC ABG pO2 280 H ABG pO2 ABG O2 Saturation ABG Base Excess ABG Hemoglobin Oxyhemoglobin Sodium Potassium Chloride Carbon Dioxide BUN Creatinine Glucose POC Glucose 115 H Lactic Acid Calcium Phosphorus Magnesium Total Bilirubin Direct Bilirubin AST ALT Alkaline Phosphatase Total Creatine Kinase CK-MB (CK-2) Troponin T C-Reactive Protein Total Protein Albumin Triglycerides LDL Cholesterol Direct HDL Cholesterol Free T4 Urine WBC (Auto) Urine Creatinine Salicylates Acetaminophen 03/20/19 03/20/19 03/20/19 09:30 09:30 11:34 WBC RBC Hgb Hct RDW Plt Count Seg Neuts % (Manual) Lymphocytes % (Manual) Monocytes % (Manual) Nucleated RBC % Seg Neutrophils # Seg Neutrophils # Man Lymphocytes # (Manual) Monocytes # (Manual) PT INR POC ABG pH ABG pH POC ABG pCO2 POC ABG pO2 ABG pO2 ABG O2 Saturation ABG Base Excess ABG Hemoglobin Oxyhemoglobin Sodium 131 L Potassium Chloride 92.3 L Carbon Dioxide 20 L BUN 68 H Creatinine 6.1 H Glucose 164 H POC Glucose 141 H Lactic Acid Calcium 5.3 L* Phosphorus Magnesium Total Bilirubin 9.50 H Direct Bilirubin AST 381 H ALT 116 H Alkaline Phosphatase 255 H Total Creatine Kinase 46136 H CK-MB (CK-2) Troponin T C-Reactive Protein Total Protein 5.1 L Albumin 2.3 L Triglycerides LDL Cholesterol Direct HDL Cholesterol Free T4 Urine WBC (Auto) Urine Creatinine Salicylates Acetaminophen 03/20/19 03/20/19 03/20/19 14:41 14:45 18:50 WBC RBC Hgb Hct RDW Plt Count Seg Neuts % (Manual) Lymphocytes % (Manual) Monocytes % (Manual) Nucleated RBC % Seg Neutrophils # Seg Neutrophils # Man Lymphocytes # (Manual) Monocytes # (Manual) PT INR POC ABG pH ABG pH POC ABG pCO2 POC ABG pO2 ABG pO2 ABG O2 Saturation ABG Base Excess ABG Hemoglobin Oxyhemoglobin Sodium Potassium Chloride Carbon Dioxide BUN Creatinine Glucose POC Glucose 117 H Lactic Acid 2.90 H* Calcium Phosphorus Magnesium Total Bilirubin Direct Bilirubin AST ALT Alkaline Phosphatase Total Creatine Kinase CK-MB (CK-2) Troponin T C-Reactive Protein 13.30 H Total Protein Albumin Triglycerides LDL Cholesterol Direct HDL Cholesterol Free T4 Urine WBC (Auto) Urine Creatinine Salicylates Acetaminophen 03/20/19 03/21/19 03/21/19 21:55 04:26 04:26 WBC 37.8 H RBC Hgb Hct RDW 15.4 H Plt Count 36 L Seg Neuts % (Manual) 93.0 H Lymphocytes % (Manual) 3.0 L Monocytes % (Manual) Nucleated RBC % 1.0 H Seg Neutrophils # 34.6 H Seg Neutrophils # Man 35.2 H Lymphocytes # (Manual) 1.1 L Monocytes # (Manual) PT INR POC ABG pH ABG pH POC ABG pCO2 POC ABG pO2 ABG pO2 ABG O2 Saturation ABG Base Excess ABG Hemoglobin Oxyhemoglobin Sodium 131 L Potassium Chloride 90.7 L Carbon Dioxide 21 L BUN 69 H Creatinine 5.7 H Glucose 170 H POC Glucose 128 H Lactic Acid Calcium 6.1 L D Phosphorus Magnesium Total Bilirubin 9.50 H Direct Bilirubin AST 308 H ALT 124 H Alkaline Phosphatase 327 H Total Creatine Kinase 75452 H CK-MB (CK-2) Troponin T C-Reactive Protein Total Protein 5.7 L Albumin 2.6 L Triglycerides LDL Cholesterol Direct HDL Cholesterol Free T4 Urine WBC (Auto) Urine Creatinine Salicylates Acetaminophen 03/21/19 03/21/19 03/21/19 05:17 05:39 08:29 WBC RBC Hgb Hct RDW Plt Count Seg Neuts % (Manual) Lymphocytes % (Manual) Monocytes % (Manual) Nucleated RBC % Seg Neutrophils # Seg Neutrophils # Man Lymphocytes # (Manual) Monocytes # (Manual) PT INR POC ABG pH ABG pH POC ABG pCO2 POC ABG pO2 209 H ABG pO2 ABG O2 Saturation ABG Base Excess ABG Hemoglobin Oxyhemoglobin Sodium Potassium Chloride Carbon Dioxide BUN Creatinine Glucose POC Glucose 145 H Lactic Acid Calcium Phosphorus Magnesium Total Bilirubin Direct Bilirubin AST ALT Alkaline Phosphatase Total Creatine Kinase 63864 H CK-MB (CK-2) Troponin T C-Reactive Protein Total Protein Albumin Triglycerides LDL Cholesterol Direct HDL Cholesterol Free T4 Urine WBC (Auto) Urine Creatinine Salicylates Acetaminophen 03/21/19 03/21/19 03/21/19 08:29 11:43 12:00 WBC RBC Hgb Hct RDW Plt Count Seg Neuts % (Manual) Lymphocytes % (Manual) Monocytes % (Manual) Nucleated RBC % Seg Neutrophils # Seg Neutrophils # Man Lymphocytes # (Manual) Monocytes # (Manual) PT INR POC ABG pH ABG pH POC ABG pCO2 POC ABG pO2 ABG pO2 ABG O2 Saturation ABG Base Excess ABG Hemoglobin Oxyhemoglobin Sodium Potassium Chloride Carbon Dioxide BUN Creatinine Glucose POC Glucose 123 H Lactic Acid 2.60 H* 2.20 H* Calcium Phosphorus Magnesium Total Bilirubin Direct Bilirubin AST ALT Alkaline Phosphatase Total Creatine Kinase CK-MB (CK-2) Troponin T C-Reactive Protein Total Protein Albumin Triglycerides LDL Cholesterol Direct HDL Cholesterol Free T4 Urine WBC (Auto) Urine Creatinine Salicylates Acetaminophen 03/21/19 03/21/19 03/21/19 14:11 18:28 19:32 WBC RBC Hgb Hct RDW Plt Count Seg Neuts % (Manual) Lymphocytes % (Manual) Monocytes % (Manual) Nucleated RBC % Seg Neutrophils # Seg Neutrophils # Man Lymphocytes # (Manual) Monocytes # (Manual) PT INR POC ABG pH 7.293 L ABG pH POC ABG pCO2 POC ABG pO2 ABG pO2 ABG O2 Saturation ABG Base Excess ABG Hemoglobin Oxyhemoglobin Sodium Potassium Chloride Carbon Dioxide BUN Creatinine Glucose POC Glucose 153 H Lactic Acid 2.10 H* Calcium Phosphorus Magnesium Total Bilirubin Direct Bilirubin AST ALT Alkaline Phosphatase Total Creatine Kinase CK-MB (CK-2) Troponin T C-Reactive Protein Total Protein Albumin Triglycerides LDL Cholesterol Direct HDL Cholesterol Free T4 Urine WBC (Auto) Urine Creatinine Salicylates Acetaminophen 03/21/19 03/22/19 03/22/19 23:38 05:08 05:51 WBC RBC Hgb Hct RDW Plt Count Seg Neuts % (Manual) Lymphocytes % (Manual) Monocytes % (Manual) Nucleated RBC % Seg Neutrophils # Seg Neutrophils # Man Lymphocytes # (Manual) Monocytes # (Manual) PT INR POC ABG pH 7.283 L ABG pH POC ABG pCO2 POC ABG pO2 53 L ABG pO2 ABG O2 Saturation ABG Base Excess ABG Hemoglobin Oxyhemoglobin Sodium Potassium Chloride Carbon Dioxide BUN Creatinine Glucose POC Glucose 149 H 131 H Lactic Acid Calcium Phosphorus Magnesium Total Bilirubin Direct Bilirubin AST ALT Alkaline Phosphatase Total Creatine Kinase CK-MB (CK-2) Troponin T C-Reactive Protein Total Protein Albumin Triglycerides LDL Cholesterol Direct HDL Cholesterol Free T4 Urine WBC (Auto) Urine Creatinine Salicylates Acetaminophen 03/22/19 03/22/19 03/22/19 08:00 08:00 18:19 WBC 36.7 H RBC Hgb 11.0 L Hct 33.5 L RDW 15.5 H Plt Count 43 L Seg Neuts % (Manual) 87.0 H Lymphocytes % (Manual) 7.0 L Monocytes % (Manual) Nucleated RBC % Seg Neutrophils # Seg Neutrophils # Man 31.9 H Lymphocytes # (Manual) Monocytes # (Manual) PT INR POC ABG pH ABG pH POC ABG pCO2 46.4 H POC ABG pO2 108 H ABG pO2 ABG O2 Saturation ABG Base Excess ABG Hemoglobin Oxyhemoglobin Sodium 132 L Potassium 5.6 H Chloride 89.6 L Carbon Dioxide 20 L BUN 101 H Creatinine 7.4 H Glucose 124 H POC Glucose Lactic Acid Calcium 5.2 L* Phosphorus Magnesium Total Bilirubin 2.80 H Direct Bilirubin AST 119 H ALT 86 H Alkaline Phosphatase 245 H Total Creatine Kinase CK-MB (CK-2) Troponin T C-Reactive Protein Total Protein 5.6 L Albumin 2.5 L Triglycerides LDL Cholesterol Direct HDL Cholesterol Free T4 Urine WBC (Auto) Urine Creatinine Salicylates Acetaminophen 03/22/19 03/23/19 03/23/19 20:37 04:49 05:28 WBC 35.9 H RBC Hgb 10.8 L Hct 33.2 L RDW 15.5 H Plt Count 49 L Seg Neuts % (Manual) 81.0 H Lymphocytes % (Manual) 3.5 L Monocytes % (Manual) Nucleated RBC % Seg Neutrophils # Seg Neutrophils # Man 29.1 H Lymphocytes # (Manual) Monocytes # (Manual) 1.4 H PT INR POC ABG pH 7.296 L ABG pH POC ABG pCO2 46.2 H POC ABG pO2 ABG pO2 ABG O2 Saturation ABG Base Excess ABG Hemoglobin Oxyhemoglobin Sodium 129 L Potassium 5.2 H Chloride 91.1 L Carbon Dioxide BUN 91 H Creatinine 6.6 H Glucose 190 H POC Glucose Lactic Acid Calcium 5.3 L* Phosphorus Magnesium Total Bilirubin 1.80 H Direct Bilirubin AST 80 H ALT 62 H Alkaline Phosphatase 209 H Total Creatine Kinase 9758 H CK-MB (CK-2) Troponin T C-Reactive Protein Total Protein 5.2 L Albumin 2.2 L Triglycerides LDL Cholesterol Direct HDL Cholesterol Free T4 Urine WBC (Auto) Urine Creatinine Salicylates Acetaminophen 03/23/19 03/23/19 05:28 05:31 WBC 29.7 H RBC 3.59 L Hgb 10.1 L Hct 31.1 L RDW 15.4 H Plt Count 47 L Seg Neuts % (Manual) 89.0 H Lymphocytes % (Manual) 6.0 L Monocytes % (Manual) Nucleated RBC % 1.0 H Seg Neutrophils # Seg Neutrophils # Man 26.4 H Lymphocytes # (Manual) Monocytes # (Manual) PT INR POC ABG pH ABG pH POC ABG pCO2 POC ABG pO2 ABG pO2 ABG O2 Saturation ABG Base Excess ABG Hemoglobin Oxyhemoglobin Sodium Potassium Chloride Carbon Dioxide BUN Creatinine Glucose POC Glucose 122 H Lactic Acid Calcium Phosphorus Magnesium Total Bilirubin Direct Bilirubin AST ALT Alkaline Phosphatase Total Creatine Kinase CK-MB (CK-2) Troponin T C-Reactive Protein Total Protein Albumin Triglycerides LDL Cholesterol Direct HDL Cholesterol Free T4 Urine WBC (Auto) Urine Creatinine Salicylates Acetaminophen Chest x-ray: image reviewed (ETT and HD cathetr in position, right LL infiltrate) Allied health notes reviewed: nursing
[2019-03-23] MEDS: cefTRIAXone/NS 2 GM/100 ML 2 GM/100 ML BAG IV SCH ×2 (09:40→21:02)
[2019-03-23] MEDS: FAMOTIDINE 20 MG/2 ML INJ IV SCH (09:43)
[2019-03-23] MEDS: DOXYCYCLINE HYCLATE 100 MG in SODIUM CHLORIDE 0.9% 250ML 250 ML IV SCH ×2 (09:49→21:47)
[2019-03-23] MEDS: NORepinephrine 8 MG in SODIUM CHLORIDE 0.9% 250ML 242 ML IV SCH (09:52)
[2019-03-23] MEDS ORDERED: SODIUM CHLORIDE 0.9% 100 ML IV PRN (10:04)
--- NOTE | 2019-03-23 11:48 | Progress Note ---
Assessment and Plan Currently in SR on tele with paroxysmal AFib RVR overnight. Cont amio gtt. He does not appear to be tolerating PO intake/tube feeding at this time. No systemic AC regarding AFib in setting of severe thrombocytopenia. Continue supportive measures. He continues to require multiple vasopressors. Can consider ischemic evaluation if/when medically stabilized. Overall guarded prognosis. The patient has been seen in conjunction with Dr. Echavarria who agrees with the assessment and plan of care. - Patient Problems (1) Cardiopulmonary arrest Current Visit: Yes Status: Acute (2) Acute respiratory failure Current Visit: Yes Status: Acute (3) SVT (supraventricular tachycardia) Current Visit: Yes Status: Resolved (4) Torsades de pointes Current Visit: Yes Status: Acute (5) Ventricular tachycardia Current Visit: Yes Status: Acute (6) Altered mental status Current Visit: Yes Status: Acute (7) Septic shock Current Visit: Yes Status: Acute (8) Aspiration pneumonia Current Visit: Yes Status: Acute (9) Acute renal failure Current Visit: Yes Status: Acute (10) Elevated LFTs Current Visit: Yes Status: Acute (11) Thrombocytopenia Current Visit: Yes Status: Acute (12) Enteritis Current Visit: Yes Status: Suspected (13) Atrial fibrillation with RVR Current Visit: Yes Status: Acute Subjective Date of service: 03/23/19 Principal diagnosis: Septic Shock; Ac. hypoxemic resp failure; Renzo. PNA; Rhabdomyolysis; RUBEN Interval history: pt remains intubated, moving arms and legs, no purposeful response noted, requiring multiple vasopressors, on amio gtt. currently in SR on tele with paroxysmal AFib RVR overnight. Objective Last Vital Signs Temp 98.7 F 03/23/19 08:00 Pulse 125 H 03/23/19 11:00 Resp 12 03/23/19 11:00 BP 145/83 03/23/19 11:00 Pulse Ox 98 03/23/19 11:00 - Physical Examination General: Other (intubated) HEENT: Positive: PERRL Neck: Positive: neck supple Cardiac: Positive: Reg Rate and Rhythm, S1/S2 Lungs: Positive: Decreased Breath Sounds, Ventilated Respirations Neuro: Positive: Other (intubated) Abdomen: Positive: Unremarkable /Rectal: Other (deferred) Skin: Positive: Clear Musculoskeletal: Decreased Range of Motion Extremities: Present: lower extr. pulses (weak, thready ) - Labs and Meds Cardiac Enzymes 03/23/19 Range/Units 05:28 AST 80 H (5-40) units/L CBC 03/22/19 03/23/19 Range/Units 20:37 05:28 WBC 35.9 H 29.7 H (4.5-11.0) K/mm3 RBC 3.90 3.59 L (3.65-5.03) M/mm3 Hgb 10.8 L 10.1 L (11.8-15.2) gm/dl Hct 33.2 L 31.1 L (35.5-45.6) % Plt Count 49 L 47 L (140-440) K/mm3 Comprehensive Metabolic Panel 03/23/19 Range/Units 05:28 Sodium 129 L (137-145) mmol/L Potassium 5.2 H (3.6-5.0) mmol/L Chloride 91.1 L (98-107) mmol/L Carbon Dioxide 22 (22-30) mmol/L BUN 91 H (9-20) mg/dL Creatinine 6.6 H (0.8-1.5) mg/dL Glucose 190 H (75-100) mg/dL Calcium 5.3 L* (8.4-10.2) mg/dL AST 80 H (5-40) units/L ALT 62 H (7-56) units/L Alkaline Phosphatase 209 H (35-129) units/L Total Protein 5.2 L (6.3-8.2) g/dL Albumin 2.2 L (3.9-5) g/dL - Imaging and Cardiology Echo: report reviewed ( EF 40-45%, impaired relaxation. ) - Allied health notes Allied health notes reviewed: nursing
--- NOTE | 2019-03-23 11:57 | Progress Note ---
Assessment and Plan Cultures: 03/16/2019 sputum: salivary contamination 03/16/2019 Blood culture: no growth 03/17/2019 Urine culture no growth 03/17/2019 throat culture: no growth Assessment: 43/M with ?psych history: 1) Septic shock: much improved, down to 1 pressor. Remains on HD, intubated on the vent. Leukocytosis present, fever resolved. ?Infectious etiology v/s possibility of Neuroleptic Malignant Syndrome given psych history, high fever of 105F and extremely elevated CPK of >100K. Unclear if he was on any psych med. From ID standpoint, we will continue broad coverage for acute bacterial meningitis, tick borne illness, aspiration pneumonia. Blood culture negative so far. UA with mild pyuria. HIV rapid negative. Strep A rapid ag negative. No obvious infectious source identified yet. 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 He lives in a hotel in a [place] neighborhood in [place] and believes he has been intermittently homeless. He met his friend Gio, who brought him to [place]. Brother denies any history of drug abuse or alcohol abuse but reports history of mental disorder, he has never received treatment. His parent do not talk to him. He denies homosexual behavior but does not have clear why he is in so close contact with new friend Gio here in [place]. Brother does not know anything about his symptoms as he spoke with him last time 3 months ago. 2) Probable aspiration pneumonia: Already completed adequate abx. 3) Acute respiratory failure: on the vent. 4) ?Right axillary edema: no abscess, US no collection seen 5) Acute encephalopathy: should r/o meningitis when able to. CT head showed diffuse cerebral edema ?artifact. But too unstable for LP at this time. Low suspicion for HSV meningoencephalitis given the degree of his initial shock and clinical status. Given nationwide acyclovir shortage and low suspicion, would not recommend IV Ganciclovir at this time. 6) Acute renal failure: renally dosing all abx, now on HD 7) Elevated LFTs/shock liver: also likely elevated from Rhabdomyolysis. Viral hepatitis panel negative. LFTs continue to improve. 8) Thrombocytopenia 9) Rhabdomyolysis: CK continues to improve 10) ?Enteritis: per CT ? no collection no perforation no obvious ischemic bowel. Gen. Surg following Recommendations: Femoral arterial line removed Remove femoral central line when feasible LP awaited, continue droplet isolation till meningitis is ruled out Low suspicion for HSV meningoencephalitis given the degree of his initial refractory shock and multi-organ dysfunction. Given nationwide acyclovir sh ortage and low suspicion, would not recommend IV Ganciclovir at this time weighing the risks of ganciclovir associated toxicities continue IV Ceftriaxone 2 gm IV q12 h continue IV doxycycline 100 mg IV q12 h continue vancomycin IV renally adjusted tickborne serologies pending prognosis guarded Will follow along. Katherine Elizabeth MD, FACP [facility], [facility] M: [phone] O: [phone] F: [phone] Subjective Date of service: 03/23/19 Principal diagnosis: Septic Shock; Ac. hypoxemic resp failure; Renzo. PNA; Rhabdomyolysis; RUBEN Interval history: Remains intubated, sedated. Still on pressors, but off vasopressin. Only on levophed now. Per RN, opens eyes but doesn't follow commands when off sedation. Objective - Exam Narrative Exam: Physical Exam: Constitutional: sedated, intubated Head, Ears, Nose: Normocephalic, atraumatic. External ears, nose normal Eyes: Conjunctivae/corneas clear. No icterus. No ptosis. Neck: Supple, no meningeal signs Oral: intubated Cardiovascular: S1, S2 normal. Respiratory: Good air entry, clear to auscultation bilaterally GI: Soft; bowel sounds hypoactive. No peritoneal signs Musculoskeletal: No pedal edema. Skin: No rash or abscess Hem/Lymphatic: No palpable cervical or supraclavicular nodes. No lymphangitis Psych: no agitation Neurological: sedated, intubated, on vent Lines: femoral TLC - Constitutional Vitals: Vital Signs Temp Pulse Resp BP Pulse Ox 98.7 F 125 H 12 145/83 98 03/23/19 08:00 03/23/19 11:00 03/23/19 11:00 03/23/19 11:00 03/23/19 11:00 Temperature -Last 24 Hours Temperature 98.7 F Temperature 99.7 F Temperature 99.3 F Temperature 99.5 F Temperature 99.4 F Temperature 99 F Temperature 99.4 F Temperature 97.6 F - Labs CBC & Chem 7: 03/23/19 05:28 03/23/19 05:28 Labs: Abnormal lab results 03/22/19 03/22/19 03/22/19 Range/Units 08:00 18:19 20:37 WBC 35.9 H (4.5-11.0) K/mm3 RBC (3.65-5.03) M/mm3 Hgb 10.8 L (11.8-15.2) gm/dl Hct 33.2 L (35.5-45.6) % RDW 15.5 H (13.2-15.2) % Plt Count 49 L (140-440) K/mm3 Seg Neuts % (Manual) 87.0 H 81.0 H (40.0-70.0) % Lymphocytes % (Manual) 7.0 L 3.5 L (13.4-35.0) % Nucleated RBC % (0.0-0.9) % Seg Neutrophils # Man 31.9 H 29.1 H (1.8-7.7) K/mm3 Monocytes # (Manual) 1.4 H (0.0-0.8) K/mm3 POC ABG pH (7.35-7.45) POC ABG pCO2 46.4 H (35-45) POC ABG pO2 108 H (80-105) Sodium (137-145) mmol/L Potassium (3.6-5.0) mmol/L Chloride (98-107) mmol/L BUN (9-20) mg/dL Creatinine (0.8-1.5) mg/dL Glucose (75-100) mg/dL POC Glucose (70-105) Calcium (8.4-10.2) mg/dL Total Bilirubin (0.1-1.2) mg/dL AST (5-40) units/L ALT (7-56) units/L Alkaline Phosphatase (35-129) units/L Total Creatine Kinase (55-170) units/L Total Protein (6.3-8.2) g/dL Albumin (3.9-5) g/dL 03/23/19 03/23/19 03/23/19 Range/Units 04:49 05:28 05:28 WBC 29.7 H (4.5-11.0) K/mm3 RBC 3.59 L (3.65-5.03) M/mm3 Hgb 10.1 L (11.8-15.2) gm/dl Hct 31.1 L (35.5-45.6) % RDW 15.4 H (13.2-15.2) % Plt Count 47 L (140-440) K/mm3 Seg Neuts % (Manual) 89.0 H (40.0-70.0) % Lymphocytes % (Manual) 6.0 L (13.4-35.0) % Nucleated RBC % 1.0 H (0.0-0.9) % Seg Neutrophils # Man 26.4 H (1.8-7.7) K/mm3 Monocytes # (Manual) (0.0-0.8) K/mm3 POC ABG pH 7.296 L (7.35-7.45) POC ABG pCO2 46.2 H (35-45) POC ABG pO2 (80-105) Sodium 129 L (137-145) mmol/L Potassium 5.2 H (3.6-5.0) mmol/L Chloride 91.1 L (98-107) mmol/L BUN 91 H (9-20) mg/dL Creatinine 6.6 H (0.8-1.5) mg/dL Glucose 190 H (75-100) mg/dL POC Glucose (70-105) Calcium 5.3 L* (8.4-10.2) mg/dL Total Bilirubin 1.80 H (0.1-1.2) mg/dL AST 80 H (5-40) units/L ALT 62 H (7-56) units/L Alkaline Phosphatase 209 H (35-129) units/L Total Creatine Kinase 9758 H (55-170) units/L Total Protein 5.2 L (6.3-8.2) g/dL Albumin 2.2 L (3.9-5) g/dL 03/23/19 Range/Units 05:31 WBC (4.5-11.0) K/mm3 RBC (3.65-5.03) M/mm3 Hgb (11.8-15.2) gm/dl Hct (35.5-45.6) % RDW (13.2-15.2) % Plt Count (140-440) K/mm3 Seg Neuts % (Manual) (40.0-70.0) % Lymphocytes % (Manual) (13.4-35.0) % Nucleated RBC % (0.0-0.9) % Seg Neutrophils # Man (1.8-7.7) K/mm3 Monocytes # (Manual) (0.0-0.8) K/mm3 POC ABG pH (7.35-7.45) POC ABG pCO2 (35-45) POC ABG pO2 (80-105) Sodium (137-145) mmol/L Potassium (3.6-5.0) mmol/L Chloride (98-107) mmol/L BUN (9-20) mg/dL Creatinine (0.8-1.5) mg/dL Glucose (75-100) mg/dL POC Glucose 122 H (70-105) Calcium (8.4-10.2) mg/dL Total Bilirubin (0.1-1.2) mg/dL AST (5-40) units/L ALT (7-56) units/L Alkaline Phosphatase (35-129) units/L Total Creatine Kinase (55-170) units/L Total Protein (6.3-8.2) g/dL Albumin (3.9-5) g/dL - Imaging and cardiology Chest x-ray: report reviewed, image reviewed (bilateral stable infiltrates)
--- NOTE | 2019-03-23 13:15 | Progress Note ---
Assessment and Plan 43 yo M with 1. septic shock 2. RUBEN 3. rhabdomyolysis 4. AMS 5. multiorgan failure 6. electrolyte abnormalities 7. right axillary cellulitis Plan: 1. neuro - sedation as needed. Neuro on board. 2. CV - wean pressors as tolerated - currently on levophed on 2mcg and on PO midodrine, DVT ppx. CBC daily - monitor thrombocytopenia. 3. Resp - vent management per ICU, wean PEEP as tolerated 4. GI - GI ppx. TTF to be restarted per ICU team. Pt likely with ileus due to being immobile for a prolonged period of time and on multiple pressors. Would advance slowly and have low threshold to obtain imaging if patient does not tolerate. 5. - garcia. monitor [facility], CK. HD per nephro 6. ID - ID on board, continue abx. LP pending improvement in plts and stability. R axillary u/s - edema, no abscess. UA + 7. Endo - blood glucose monitoring 8. Tox - UDS negative. 9. FEN - replace lytes aggressively. BMP daily. TF to be restarted per ICU team Pt critically ill. He continues to have a benign abdominal exam, without evidence of peritonitis and no definitive indication for surgical intervention. Recommend continuing supportive care as above. Will follow along peripherally. No acute surgical intervention indicated at this time. Thank you, please call with questions. Subjective Date of service: 03/23/19 Narrative: Pt seen and examined. No overnight events. Objective Vital Signs - 12hr 03/23/19 03/23/19 03/23/19 01:15 01:30 01:45 Temperature Pulse Rate 68 66 65 Pulse Rate [ Anterior Bilateral Throughout] Pulse Rate [ Apical] Pulse Rate [ From Monitor] Respiratory 25 H 25 H 25 H Rate Respiratory Rate [Anterior Bilateral Throughout] Blood Pressure 104/51 100/51 101/52 O2 Sat by Pulse 99 99 99 Oximetry 03/23/19 03/23/19 03/23/19 02:00 02:15 02:30 Temperature Pulse Rate 65 65 73 Pulse Rate [ Anterior Bilateral Throughout] Pulse Rate [ Apical] Pulse Rate [ 65 From Monitor] Respiratory 24 25 H 10 L Rate Respiratory Rate [Anterior Bilateral Throughout] Blood Pressure 101/50 99/50 101/50 O2 Sat by Pulse 98 99 98 Oximetry 03/23/19 03/23/19 03/23/19 02:46 03:00 03:15 Temperature Pulse Rate 123 H 127 H 119 H Pulse Rate [ Anterior Bilateral Throughout] Pulse Rate [ Apical] Pulse Rate [ From Monitor] Respiratory 15 19 Rate Respiratory Rate [Anterior Bilateral Throughout] Blood Pressure 119/68 128/71 139/73 O2 Sat by Pulse 91 95 99 Oximetry 03/23/19 03/23/19 03/23/19 03:30 03:46 04:00 Temperature 99.7 F H Pulse Rate 123 H 126 H 127 H Pulse Rate [ Anterior Bilateral Throughout] Pulse Rate [ Apical] Pulse Rate [ From Monitor] Respiratory 12 12 27 H Rate Respiratory Rate [Anterior Bilateral Throughout] Blood Pressure 139/73 135/78 123/72 O2 Sat by Pulse 98 98 98 Oximetry 03/23/19 03/23/19 03/23/19 04:15 04:30 04:45 Temperature Pulse Rate 96 H 111 H 115 H Pulse Rate [ Anterior Bilateral Throughout] Pulse Rate [ Apical] Pulse Rate [ From Monitor] Respiratory 26 H 22 26 H Rate Respiratory Rate [Anterior Bilateral Throughout] Blood Pressure 122/60 109/66 118/60 O2 Sat by Pulse 97 97 98 Oximetry 03/23/19 03/23/19 03/23/19 05:00 05:15 05:30 Temperature Pulse Rate 69 68 66 Pulse Rate [ Anterior Bilateral Throughout] Pulse Rate [ Apical] Pulse Rate [ From Monitor] Respiratory 25 H 25 H 25 H Rate Respiratory Rate [Anterior Bilateral Throughout] Blood Pressure 105/51 100/49 118/61 O2 Sat by Pulse 96 96 Oximetry 03/23/19 03/23/19 03/23/19 05:45 06:00 06:15 Temperature Pulse Rate 67 65 64 Pulse Rate [ Anterior Bilateral Throughout] Pulse Rate [ Apical] Pulse Rate [ From Monitor] Respiratory 25 H 25 H 25 H Rate Respiratory Rate [Anterior Bilateral Throughout] Blood Pressure 99/52 103/49 103/50 O2 Sat by Pulse 96 97 98 Oximetry 03/23/19 03/23/19 03/23/19 06:30 06:45 07:00 Temperature Pulse Rate 64 63 63 Pulse Rate [ Anterior Bilateral Throughout] Pulse Rate [ Apical] Pulse Rate [ From Monitor] Respiratory 25 H 25 H 25 H Rate Respiratory Rate [Anterior Bilateral Throughout] Blood Pressure 107/51 105/50 104/51 O2 Sat by Pulse 97 97 97 Oximetry 03/23/19 03/23/1903/23/19 07:15 07:30 07:45 Temperature Pulse Rate 63 84 100 H Pulse Rate [ Anterior Bilateral Throughout] Pulse Rate [ Apical] Pulse Rate [ From Monitor] Respiratory 25 H 12 25 H Rate Respiratory Rate [Anterior Bilateral Throughout] Blood Pressure 107/52 107/52 125/61 O2 Sat by Pulse 98 97 95 Oximetry 03/23/19 03/23/19 03/23/19 08:00 08:16 08:30 Temperature 98.7 F Pulse Rate 117 H 125 H 114 H Pulse Rate [ Anterior Bilateral Throughout] Pulse Rate [ 113 H Apical] Pulse Rate [ 113 H From Monitor] Respiratory 21 13 26 H Rate Respiratory Rate [Anterior Bilateral Throughout] Blood Pressure 123/63 166/109 133/58 O2 Sat by Pulse 98 99 98 Oximetry 03/23/19 03/23/19 03/23/19 08:34 08:46 08:48 Temperature Pulse Rate 75 79 75 Pulse Rate [ 71 Anterior Bilateral Throughout] Pulse Rate [ Apical] Pulse Rate [ From Monitor] Respiratory 21 Rate Respiratory 25 H Rate [Anterior Bilateral Throughout] Blood Pressure 126/61 126/61 O2 Sat by Pulse 98 97 Oximetry 03/23/19 03/23/19 03/23/19 09:00 09:15 09:30 Temperature Pulse Rate 79 70 70 Pulse Rate [ Anterior Bilateral Throughout] Pulse Rate [ Apical] Pulse Rate [ From Monitor] Respiratory 22 25 H 25 H Rate Respiratory Rate [Anterior Bilateral Throughout] Blood Pressure 116/56 100/49 105/48 O2 Sat by Pulse 100 99 99 Oximetry 03/23/19 03/23/19 03/23/19 09:45 10:00 10:16 Temperature Pulse Rate 74 97 H 122 H Pulse Rate [ Anterior Bilateral Throughout] Pulse Rate [ Apical] Pulse Rate [ From Monitor] Respiratory 25 H 16 11 L Rate Respiratory Rate [Anterior Bilateral Throughout] Blood Pressure 129/58 138/63 129/77 O2 Sat by Pulse 98 99 99 Oximetry 03/23/19 03/23/19 03/23/19 10:30 10:45 11:00 Temperature Pulse Rate 137 H 120 H 125 H Pulse Rate [ Anterior Bilateral Throughout] Pulse Rate [ Apical] Pulse Rate [ From Monitor] Respiratory 13 19 12 Rate Respiratory Rate [Anterior Bilateral Throughout] Blood Pressure 136/87 151/90 145/83 O2 Sat by Pulse 98 99 98 Oximetry 09/03/23/19 03/23/19 11:15 11:30 11:46 Temperature Pulse Rate 137 H 131 H 138 H Pulse Rate [ Anterior Bilateral Throughout] Pulse Rate [ Apical] Pulse Rate [ From Monitor] Respiratory 13 13 17 Rate Respiratory Rate [Anterior Bilateral Throughout] Blood Pressure 145/83 141/74 134/80 O2 Sat by Pulse 97 98 97 Oximetry 03/23/19 03/23/19 03/23/19 12:00 12:11 12:15 Temperature 99.2 F Pulse Rate 130 H 128 H 125 H Pulse Rate [ Anterior Bilateral Throughout] Pulse Rate [ 132 H Apical] Pulse Rate [ 113 H From Monitor] Respiratory 25 H 14 Rate Respiratory Rate [Anterior Bilateral Throughout] Blood Pressure 134/80 133/77 135/76 O2 Sat by Pulse 98 97 97 Oximetry 03/23/19 12:30 Temperature Pulse Rate 143 H Pulse Rate [ Anterior Bilateral Throughout] Pulse Rate [ Apical] Pulse Rate [ From Monitor] Respiratory 22 Rate Respiratory Rate [Anterior Bilateral Throughout] Blood Pressure 141/108 O2 Sat by Pulse 95 Oximetry - General physical appearance Narrative Exam: Gen: Intubated, on sedation. Responds with facial grimacing to painful stimuli ENT; ETT and OGT in place - OGT clamped CV: S1, S2+ Resp: on vent Abd: soft, NT, mildly distended in epigastum. No r/r/g Ext: + generalized edema. - Labs 03/23/19 05:28 03/23/19 05:28 Diabetes panel 03/23/19 Range/Units 05:28 Sodium 129 L (137-145) mmol/L Potassium 5.2 H (3.6-5.0) mmol/L Chloride 91.1 L (98-107) mmol/L Carbon Dioxide 22 (22-30) mmol/L BUN 91 H (9-20) mg/dL Creatinine 6.6 H (0.8-1.5) mg/dL Glucose 190 H (75-100) mg/dL Calcium 5.3 L* (8.4-10.2) mg/dL AST 80 H (5-40) units/L ALT 62 H (7-56) units/L Alkaline Phosphatase 209 H (35-129) units/L Total Protein 5.2 L (6.3-8.2) g/dL Albumin 2.2 L (3.9-5) g/dL Calcium panel 03/23/19 Range/Units 05:28 Calcium 5.3 L* (8.4-10.2) mg/dL Albumin 2.2 L (3.9-5) g/dL Pituitary panel 03/23/19 Range/Units 05:28 Sodium 129 L (137-145) mmol/L Potassium 5.2 H (3.6-5.0) mmol/L Chloride 91.1 L (98-107) mmol/L Carbon Dioxide 22 (22-30) mmol/L BUN 91 H (9-20) mg/dL Creatinine 6.6 H (0.8-1.5) mg/dL Glucose 190 H (75-100) mg/dL Calcium 5.3 L* (8.4-10.2) mg/dL Adrenal panel 03/23/19 Range/Units 05:28 Sodium 129 L (137-145) mmol/L Potassium 5.2 H (3.6-5.0) mmol/L Chloride 91.1 L (98-107) mmol/L Carbon Dioxide 22 (22-30) mmol/L BUN 91 H (9-20) mg/dL Creatinine 6.6 H (0.8-1.5) mg/dL Glucose 190 H (75-100) mg/dL Calcium 5.3 L* (8.4-10.2) mg/dL Total Bilirubin 1.80 H (0.1-1.2) mg/dL AST 80 H (5-40) units/L ALT 62 H (7-56) units/L Alkaline Phosphatase 209 H (35-129) units/L Total Protein 5.2 L (6.3-8.2) g/dL Albumin 2.2 L (3.9-5) g/dL
--- NOTE | 2019-03-23 13:42 | Progress Note ---
Assessment and Plan 1. Acute kidney injury: Vasomotor RUBEN in the setting of shock / volume depletion / Rhabdo. Baseline renal function is unknown. Patient remain anuric / oliguric. CT abdomen was negative for obstructive nephropathy. Monitor renal function. Renal prognosis is guarded. Avoid nephrotoxic agents. Meds dosage based on GFR. Patient was started on hemodialysis on 03/18/19 due to worsening metabolic acidosis and hyperkalemia. Hemodialysis: 03/18, 03/19, 03/20, 03/22, 03/23. 2. FEN: Hyperkalemia, HD today. Hyponatremia, monitor. Metabolic acidosis, 2/2 Lactic acidosis. Volume overload, UF with HD as tolerated. Replete Calcium. Monitor lytes. 3. Septic shock: On broad spectrum Abx. Followed by ID. Currently on Midodrine and Levophed. 4. Rhabdomyolysis: Follow CK level. 5. SVT / V.tach: Followed by Cards. 6. Respiratory failure: On vent. 7. Multiple organ failure. 8. Elevated transaminases. 9. Encephalopathy: Followed by Neuro. Examination: General appearance: well-developed, appears stated age, obese, intubated, on vent HEENT: Atraumatic Neck: supple Respiratory: coarse breath sounds Cardiology: irregular, tachycardia, no murmurs Gastrointestinal: no tenderness, obese Integumentary: no rash Neurologic: obtunded Ext: no edema Hemodialysis access: R IJ temp catheter Subjective Date of service: 03/23/19 Principal diagnosis: Septic Shock; Ac. hypoxemic resp failure; Renzo. PNA; Rhabdomyolysis; RUBEN Interval history: Patient was seen and examined at the bedside. Remain on the vent. Objective - Vital Signs Vital signs: Vital Signs - 12hr 03/23/19 03/23/19 03/23/19 01:45 02:00 02:15 Temperature Pulse Rate 65 65 65 Pulse Rate [ Anterior Bilateral Throughout] Pulse Rate [ Apical] Pulse Rate [ 65 From Monitor] Respiratory 25 H 24 25 H Rate Respiratory Rate [Anterior Bilateral Throughout] Blood Pressure 101/52 101/50 99/50 O2 Sat by Pulse 99 98 99 Oximetry 03/23/19 03/23/19 03/23/19 02:30 02:46 03:00 Temperature Pulse Rate 73 123 H 127 H Pulse Rate [ Anterior Bilateral Throughout] Pulse Rate [ Apical] Pulse Rate [ From Monitor] Respiratory 10 L 12 15 Rate Respiratory Rate [Anterior Bilateral Throughout] Blood Pressure 101/50 119/68 128/71 O2 Sat by Pulse 98 91 95 Oximetry 03/23/19 03/23/19 03/23/19 03:15 03:30 03:46 Temperature 99.7 F H Pulse Rate 119 H 123 H 126 H Pulse Rate [ Anterior Bilateral Throughout] Pulse Rate [ Apical] Pulse Rate [ From Monitor] Respiratory 19 12 12 Rate Respiratory Rate [Anterior Bilateral Throughout] Blood Pressure 139/73 139/73 135/78 O2 Sat by Pulse 99 98 98 Oximetry 03/23/19 03/23/19 03/23/19 04:00 04:15 04:30 Temperature Pulse Rate 127 H 96 H 111 H Pulse Rate [ Anterior Bilateral Throughout] Pulse Rate [ Apical] Pulse Rate [ From Monitor] Respiratory 27 H 26 H 22 Rate Respiratory Rate [Anterior Bilateral Throughout] Blood Pressure 123/72 122/60 109/66 O2 Sat by Pulse 98 97 97 Oximetry 03/23/19 03/23/19 03/23/19 04:45 05:00 05:15 Temperature Pulse Rate 115 H 69 68 Pulse Rate [ Anterior Bilateral Throughout] Pulse Rate [ Apical] Pulse Rate [ From Monitor] Respiratory 26 H 25 H 25 H Rate Respiratory Rate [Anterior Bilateral Throughout] Blood Pressure 118/60 105/51 100/49 O2 Sat by Pulse 98 96 96 Oximetry 03/23/19 03/23/19 03/23/19 05:30 05:45 06:00 Temperature Pulse Rate 66 67 65 Pulse Rate [ Anterior Bilateral Throughout] Pulse Rate [ Apical] Pulse Rate [ From Monitor] Respiratory 25 H 25 H 25 H Rate Respiratory Rate [Anterior Bilateral Throughout] Blood Pressure 118/61 99/52 103/49 O2 Sat by Pulse 96 97 Oximetry 03/23/19 03/23/19 03/23/19 06:15 06:30 06:45 Temperature Pulse Rate 64 64 63 Pulse Rate [ Anterior Bilateral Throughout] Pulse Rate [ Apical] Pulse Rate [ From Monitor] Respiratory 25 H 25 H 25 H Rate Respiratory Rate [Anterior Bilateral Throughout] Blood Pressure 103/50 107/51 105/50 O2 Sat by Pulse 98 97 97 Oximetry 03/23/19 03/23/19 03/23/19 07:00 07:15 07:30 Temperature Pulse Rate 63 63 84 Pulse Rate [ Anterior Bilateral Throughout] Pulse Rate [ Apical] Pulse Rate [ From Monitor] Respiratory 25 H 25 H 12 Rate Respiratory Rate [Anterior Bilateral Throughout] Blood Pressure 104/51 107/52 107/52 O2 Sat by Pulse 97 98 97 Oximetry 03/23/19 03/23/19 03/23/19 07:45 08:00 08:16 Temperature 98.7 F Pulse Rate 100 H 117 H 125 H Pulse Rate [ Anterior Bilateral Throughout] Pulse Rate [ 113 H Apical] Pulse Rate [ 113 H From Monitor] Respiratory 25 H 21 13 Rate Respiratory Rate [Anterior Bilateral Throughout] Blood Pressure 125/61 123/63 166/109 O2 Sat by Pulse 95 98 99 Oximetry 03/23/19 03/23/19 03/23/19 08:30 08:34 08:46 Temperature Pulse Rate 114 H 75 79 Pulse Rate [ Anterior Bilateral Throughout] Pulse Rate [ Apical] Pulse Rate [ From Monitor] Respiratory 26 H 21 Rate Respiratory Rate [Anterior Bilateral Throughout] Blood Pressure 133/58 126/61 O2 Sat by Pulse 98 98 Oximetry 03/23/19 03/23/19 03/23/19 08:48 09:00 09:15 Temperature Pulse Rate 75 79 70 Pulse Rate [ 71 Anterior Bilateral Throughout] Pulse Rate [ Apical] Pulse Rate [ From Monitor] Respiratory 22 25 H Rate Respiratory 25 H Rate [Anterior Bilateral Throughout] Blood Pressure 126/61 116/56 100/49 O2 Sat by Pulse 97 100 99 Oximetry 03/23/19 03/23/19 03/23/19 09:30 09:45 10:00 Temperature Pulse Rate 70 74 97 H Pulse Rate [ Anterior Bilateral Throughout] Pulse Rate [ Apical] Pulse Rate [ From Monitor] Respiratory 25 H 25 H 16 Rate Respiratory Rate [Anterior Bilateral Throughout] Blood Pressure 105/48 129/58 138/63 O2 Sat by Pulse 99 98 99 Oximetry 03/23/19 03/23/19 03/23/19 10:16 10:30 10:45 Temperature Pulse Rate 122 H 137 H 120 H Pulse Rate [ Anterior Bilateral Throughout] Pulse Rate [ Apical] Pulse Rate [ From Monitor] Respiratory 11 L 13 19 Rate Respiratory Rate [Anterior Bilateral Throughout] Blood Pressure 129/77 136/87 151/90 O2 Sat by Pulse 99 98 99 Oximetry 03/23/19 03/23/19 03/23/19 11:00 11:15 11:30 Temperature Pulse Rate 125 H 137 H 131 H Pulse Rate [ Anterior Bilateral Throughout] Pulse Rate [ Apical] Pulse Rate [ From Monitor] Respiratory 12 13 13 Rate Respiratory Rate [Anterior Bilateral Throughout] Blood Pressure 145/83 145/83 141/74 O2 Sat by Pulse 98 97 98 Oximetry 03/23/19 03/23/19 03/23/19 11:46 12:00 12:11 Temperature 99.2 F Pulse Rate 138 H 130 H 128 H Pulse Rate [ Anterior Bilateral Throughout] Pulse Rate [ 132 H Apical] Pulse Rate [ 113 H From Monitor] Respiratory 17 25 H Rate Respiratory Rate [Anterior Bilateral Throughout] Blood Pressure 134/80 134/80 133/77 O2 Sat by Pulse 97 98 97 Oximetry 03/23/19 03/23/19 12:15 12:30 Temperature Pulse Rate 125 H 143 H Pulse Rate [ Anterior Bilateral Throughout] Pulse Rate [ Apical] Pulse Rate [ From Monitor] Respiratory 14 22 Rate Respiratory Rate [Anterior Bilateral Throughout] Blood Pressure 135/76 141/108 O2 Sat by Pulse 97 95 Oximetry - Lab 03/23/19 05:28 03/23/19 05:28 Most recent lab results ABG pH 7.265 pH Units (7.350-7.450) L 03/19/19 05:35 ABG pCO2 45.5 mm Hg 03/19/19 05:35 ABG pO2 35.4 mm Hg (80.0-90.0) L* 03/19/19 05:35 ABG HCO3 20.2 mmol/L (20.0-26.0) 03/19/19 05:35 ABG O2 Saturation 54.4 % (95.0-99.0) L 03/19/19 05:35 Calcium 5.3 mg/dL (8.4-10.2) L* 03/23/19 05:28 Phosphorus 7.30 mg/dL (2.5-4.5) H 03/17/19 03:45 Magnesium 2.40 mg/dL (1.7-2.3) H 03/18/19 08:40 106.6 mg/dL (0.1-20.0) H 03/17/19 16:05 95 mmol/L 03/17/19 16:05 Medications & Allergies - Medications Allergies/Adverse Reactions: Allergies No Known Allergies Allergy (Unverified 03/16/19 17:17) Home Medications: Home Medications Medication Instructions Recorded Confirmed Last Taken Type Unobtainable 03/18/19 03/18/19 Unknown History Active Medications: Generic Name Dose Route Start Last Admin Trade Name Kirkq PRN Reason Stop Dose Admin Acetaminophen 650 mg 03/16/19 22:22 03/17/19 18:49 Tylenol OH 650 mg Q4H PRN Administration Fever >101 Albuterol/Ipratropium 1 ampul 03/19/19 20:00 03/23/19 12:10 Duoneb *Not For Prn Use* IH Not Given Q4HRT PAOLO Lipase/Protease/Amylase 1 each 03/17/19 14:45 Pancreaze 10,500 Unit FEEDTUBE PRN PRN For Clogged Feeding Tube Dextrose 50 gm 03/19/19 18:39 D50w (25gm) Vial IV PRN PRN Hypoglycemia Famotidine 20 mg 03/20/19 10:00 03/23/19 09:43 Pepcid IV 20 mg DAILY PAOLO Administration Fentanyl 50 mcg 03/16/19 16:06 03/16/19 17:02 Sublimaze IV 50 mcg Q10MIN PRN Administration ANALGESIA Fentanyl 25 mcg 03/19/19 18:33 03/20/19 02:53 Sublimaze IV 25 mcg Q2H PRN Administration Pain, Moderate (4-6) Hydrocortisone Sodium Succinate 100 mg 03/18/19 20:00 03/23/19 11:39 Solu-Cortef IV 100 mg Q8H PAOLO Administration Hydrophilic Ointment 1 applic 03/16/19 15:50 Vaseline Lip Therapy TP Q2HR PRN Dry Lips Midazolam HCl 100 mg/ Sodium 100 mls @ 2 mls/hr 03/16/19 16:00 03/19/19 18:45 Chloride IV 0 mg/hr TITR PAOLO 0 mls/hr Titration Protocol 2 MG/HR Fentanyl Citrate 2,000 mcg in 100 mls @ 6.804 mls/hr 03/16/19 17:00 03/23/19 09:44 Fentanyl Drip Premix IV 0 mcg/kg/hr TITR PAOLO 0 mls/hr Titration Protocol 1 MCG/KG/HR Vasopressin 20 unit/ Sodium 101 mls @ 9.09 mls/hr 03/16/19 23:45 03/22/19 12:00 Chloride IV Infused TITR PAOLO Titration Protocol 0.03 UNITS/MIN Norepinephrine 8 mg/ Sodium 250 mls @ 3.75 mls/hr 03/17/19 02:00 03/23/19 11:39 Chloride IV 2 mcg/min TITR PAOLO 3.75 mls/hr Titration Protocol 2 MCG/MIN Phenylephrine HCl 100 mg/ 100 mls @ 3 mls/hr 03/17/19 02:30 03/19/19 18:48 Sodium Chloride IV Infused TITR PAOLO Titration Protocol 50 MCG/MIN Ceftriaxone Sodium 2 gm in 100 mls @ 200 mls/hr 03/17/19 12:00 03/23/19 09:40 Rocephin/Ns 2 Gm/100 Ml IV 200 mls/hr Q12HR PAOLO Administration Protocol Doxycycline Hyclate 100 mg/ 250 mls @ 250 mls/hr 03/17/19 12:00 03/23/19 09:49 Sodium Chloride IV 250 mls/hr Q12HR PAOLO Administration Protocol Dopamine HCl/Dextrose 800 mg in 250 mls @ 5.103 mls/hr 03/17/19 23:00 03/20/19 12:54 Intropin Drip 800 Mg/D5w 250 Ml IV 0 mcg/kg/min TITR PAOLO 0 mls/hr Titration Protocol 2 MCG/KG/MIN Amiodarone HCl 900 mg/ 500 mls @ 33.333 mls/hr 03/18/19 17:00 03/23/19 02:00 Dextrose IV 1 mg/min DIRECT PAOLO 33.333 mls/hr Administration Protocol 1 MG/MIN Propofol 1,000 mg in 100 mls @ 4.572 mls/hr 03/22/19 12:00 03/23/19 12:35 Diprivan 10 Mg/Ml IV 10 mcg/kg/min TITR PAOLO 9.144 mls/hr Titration Protocol 5 MCG/KG/MIN Sodium Chloride 100 mls @ 999 mls/hr 03/23/19 10:04 Nacl 0.9% IV NEYMAR PRN Hypotension Metoclopramide HCl 5 mg 03/21/19 19:00 03/23/19 09:15 Reglan IV 5 mg Q6H PAOLO Administration Midazolam HCl 2 mg 03/16/19 15:50 03/20/19 14:23 Versed IV 2 mg Q10MIN PRN Administration Sedation Midodrine 10 mg 03/18/19 20:00 03/23/19 11:39 Proamatine PO 10 mg Q8H PAOLO Administration Multi-Ingred Cream/Lotion/Oil/Oint 1 applic 03/16/19 15:50 03/19/19 20:10 Artificial Tears Ophth Oint OU 1 applic Q4HR PRN Administration Dry Eye(s) Ondansetron HCl 4 mg 03/16/19 22:21 Zofran IV Q8H PRN Nausea And Vomiting Simple Syrup 15 ml 03/17/19 14:45 Simple Syrup FEEDTUBE PRN PRN Hypoglycemia Simple Syrup 30 ml 03/17/19 14:45 Simple Syrup FEEDTUBE PRN PRN Hypoglycemia Sodium Bicarbonate 325 mg 03/17/19 14:45 Sodium Bicarbonate FEEDTUBE PRN PRN For Clogged Feeding Tube
--- NOTE | 2019-03-23 15:14 | Progress Note ---
Assessment and Plan Assessment and plan: Patient is a 43 year old male with PMH of GERD, Obesity, and per family has been homeless on the streets in [place] admitted to our facility following arrival via private vehicle with AMS x 2 Days per friend. On arrival was intubated in the ED noted to have rectal temp of 105 AND SVT with rate in the 250 requiring 2 shocks delivery * Initial rhythm appeared to be SVT * Per friend patient complaining of feeling ill and has some left eye discharge, cold, clammy and diaphoretic by the time arrived to the hospital. Also mentions a possibility of a right axilla abscess. The and went to stay with his girlfriend the last 2 days and this morning when he saw the patient he was ill-appearing but sleeping. * Patient was on 4 pressors, currently on 1 * Start on Elizabeth culture including coverage for possible Meningitis CHEST 1 VIEW . IMPRESSION: 1. Endotracheal tube in good position. 2. Nasogastric tube doubled back on itself at the level of the [place] with the tip not seen. The tube repositioned. CT of the chest, abdomen and pelvis without contrast . IMPRESSION: 1. Parenchymal disease in both lower lobes posteromedially may be related to aspiration pneumonia. 2. Moderately dilated small bowel bowel loops in the mid to upper abdomen anteriorly with mild associated bowel wall thickening. Localized enteritis and small bowel ischemia should be considered. CT head/brain wo contrast. IMPRESSION: 1. Some component of diffuse cerebral edema cannot be excluded. However, this finding may be artifactual secondary to patient positioning. Close follow-up is recommended. No definitive signs of herniation or large territorial infarct at this time. 2. Otherwise, no focal mass, hemorrhage, hydrocephalus, or large infarct seen. Multi-Organ failure Septic Shock Severe Sepsis Acute Metabolic Encephalopathy Acute Respiratory Failure with Hypoxia Presume ARDS SVT with Polymorphic Vtach Rhabdomyolysis Severe Metabolic Acidosis Acute Cystitis Acute Kidney Failure secondary to ATN ANURIC Thrombocytopenia, Presume DIC Shock Liver Hypomagnesemia, Suspect Aspiration pneumonia Right Axillary cellulitis Enteritis Hypoglycemia-IMPROVED NMS; was considered and mental health consulted recommended supportive care because of the critical nature of the condition. Plan: Continue supportive care Neurology consult; appreciated EEG; generalized slowing, no epilpetiform focus Dialysis was done; nephrology is following Specialist impressions noted and appreciated Wean pressors as needed, currently on levophed Continue bicarb drip Holding further fluids due to poor urine output, Aspiration Precautions and VAP bundle Echo reviewed and noted Ultrasound to further evaluate right axilla to r/o abscess vs LAD Monitor Blood glucose prevent hypoglycemia UDS noted, only shows benzos, ?from here or outside. per family no hx of drugs CK is still very high, but trending down Patients BP is better DVT/GI prophy Poor prognosis Discussed with his brother on the phone. Advanced care planning, family opting against DNR, wants all done. Will like a call if patient codes as they may opt for limited code The high probability of a clinically significant, sudden or life threatening deterioration of the [multiple organs] system(s) required my full and direct attention, intervention and personal management. The aggregate critical care time was [45] minutes. This time is in addition to time spent performing reported procedures but includes the following: [x] Data Review and interpretation [x] Patient assessment and monitoring of vital signs [x] Documentation [x] Medication orders and management History Interval history: Patient was seen and evaluated this morning patient was intubated and on mechanical ventilation. Discussed the management plan with patient's nurse. patient on levophed. Hospitalist Physical - Physical exam Narrative exam: Patient is intubated and on mechanical ventilation. The patient is morbidly obese. Vital signs as documented. Head exam is unremarkable. No scleral icterus . Neck is without jugular venous distension, thyromegaly, or carotid bruits. Lungs are clear to auscultation. Cardiac exam reveals regular rate and Rhythm. Abdominal exam reveals normal bowel sounds. Extremities are nonedematous and both femoral and pedal pulses are normal. 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 - Constitutional Vitals: Temp Pulse Resp BP Pulse Ox 99.2 F 104 H 23 123/77 98 03/23/19 12:00 03/23/19 14:00 03/23/19 14:00 03/23/19 14:00 03/23/19 14:00 General appearance: Present: severe distress, obese Results - Labs CBC & Chem 7: 03/23/19 05:28 03/23/19 05:28 Labs: Laboratory Last Values WBC 29.7 K/mm3 (4.5-11.0) H 03/23/19 05:28 RBC 3.59 M/mm3 (3.65-5.03) L 03/23/19 05:28 Hgb 10.1 gm/dl (11.8-15.2) L 03/23/19 05:28 Hct 31.1 % (35.5-45.6) L 03/23/19 05:28 MCV 87 fl (84-94) 03/23/19 05:28 MCH 28 pg (28-32) 03/23/19 05:28 MCHC 33 % (32-34) 03/23/19 05:28 RDW 15.4 % (13.2-15.2) H 03/23/19 05:28 Plt Count 47 K/mm3 (140-440) L 03/23/19 05:28 [place] % (Auto) 1.6 % (0.0-7.3) 03/21/19 04:26 [place] # 0.6 K/mm3 (0.0-0.8) 03/21/19 04:26 Add Manual Diff Complete 03/23/19 05:28 Total Counted 100 03/23/19 05:28 Seg Neutrophils % Clay Stain Mixer 03/23/19 05:28 Seg Neuts % (Manual) 89.0 % (40.0-70.0) H 03/23/19 05:28 2.0 % 03/23/19 05:28 6.0 % (13.4-35.0) L 03/23/19 05:28 Reactive Lymphs % (Man) 1.0 % 03/23/19 05:28 0 % (0.0-7.3) 03/23/19 05:28 0 % (0.0-4.3) 03/23/19 05:28 0 % (0.0-1.8) 03/23/19 05:28 2.0 % 03/23/19 05:28 0 % 03/23/19 05:28 0 % 03/23/19 05:28 0 % 03/23/19 05:28 Nucleated RBC % 1.0 % (0.0-0.9) H 03/23/19 05:28 Seg Neutrophils # 34.6 K/mm3 (1.8-7.7) H 03/21/19 04:26 Seg Neutrophils # Man 26.4 K/mm3 (1.8-7.7) H 03/23/19 05:28 Band Neutrophils # 0.6 K/mm3 03/23/19 05:28 1.8 K/mm3 (1.2-5.4) 03/23/19 05:28 Abs React Lymphs (Man) 0.3 K/mm3 03/23/19 05:28 0.0 K/mm3 (0.0-0.8) 03/23/19 05:28 0.0 K/mm3 (0.0-0.4) 03/23/19 05:28 0.0 K/mm3 (0.0-0.1) 03/23/19 05:28 0.6 K/mm3 03/23/19 05:28 0.0 K/mm3 03/23/19 05:28 0.0 K/mm3 03/23/19 05:28 Blast Cells # 0.0 K/mm3 03/23/19 05:28 WBC Morphology Not Reportable 03/23/19 05:28 Hypersegmented Neuts Not Reportable 03/23/19 05:28 Hyposegmented Neuts Not Reportable 03/23/19 05:28 Hypogranular Neuts Not Reportable 03/23/19 05:28 Not Reportable 03/23/19 05:28 Not Reportable 03/23/19 05:28 Not Reportable 03/23/19 05:28 Not Reportable 03/23/19 05:28 Not Reportable 03/23/19 05:28 Not Reportable 03/23/19 05:28 Consistent w auto 03/23/19 05:28 Not Reportable 03/23/19 05:28 Plt Clumps, EDTA Not Reportable 03/23/19 05:28 Not Reportable 03/23/19 05:28 Not Reportable 03/23/19 05:28 Not Reportable 03/23/19 05:28 Plt Morphology Comment Not Reportable 03/23/19 05:28 RBC Morphology Not Reportable 03/23/19 05:28 Dimorphic RBCs Not Reportable 03/23/19 05:28 Not Reportable 03/23/19 05:28 Not Reportable 03/23/19 05:28 Few 03/23/19 05:28 Few 03/23/19 05:28 Not Reportable 03/23/19 05:28 Not Reportable 03/23/19 05:28 Not Reportable 03/23/19 05:28 Not Reportable 03/23/19 05:28 Not Reportable 03/23/19 05:28 Not Reportable 03/23/19 05:28 Not Reportable 03/23/19 05:28 Not Reportable 03/23/19 05:28 Few 03/22/19 20:37 Not Reportable 03/23/19 05:28 Not Reportable 03/23/19 05:28 Not Reportable 03/23/19 05:28 Not Reportable 03/23/19 05:28 Not Reportable 03/23/19 05:28 Not Reportable 03/23/19 05:28 Not Reportable 03/23/19 05:28 Acanthocytes (Spur) Not Reportable 03/23/19 05:28 Rouleaux Not Reportable 03/23/19 05:28 Not Reportable 03/23/19 05:28 Not Reportable 03/23/19 05:28 Not Reportable 03/23/19 05:28 Not Reportable 03/23/19 05:28 Hem Pathologist Commnt No 03/23/19 05:28 PT 15.9 Sec. (12.2-14.9) H 03/16/19 17:05 INR 1.30 (0.87-1.13) H 03/16/19 17:05 APTT 31.7 Sec. (24.2-36.6) 03/16/19 17:05 POC ABG pH 7.296 (7.35-7.45) L 03/23/19 04:49 ABG pH 7.265 pH Units (7.350-7.450) L 03/19/19 05:35 POC ABG pCO2 46.2 (35-45) H 03/23/19 04:49 ABG pCO2 45.5 mm Hg 03/19/19 05:35 POC ABG pO2 86 (80-105) 03/23/19 04:49 ABG pO2 35.4 mm Hg (80.0-90.0) L* 03/19/19 05:35 POC ABG HCO3 22.5 (22-26 mml/L) 03/23/19 04:49 ABG HCO3 20.2 mmol/L (20.0-26.0) 03/19/19 05:35 POC ABG Total CO2 24 (23-27mmol/L) 03/23/19 04:49 POC ABG O2 Sat 95 03/23/19 04:49 ABG O2 Saturation 54.4 % (95.0-99.0) L 03/19/19 05:35 ABG O2 Content 9.7 (0.0-44) 03/19/19 05:35 POC ABG Base Excess -4 ((-2) - (+3)mmol/L) 03/23/19 04:49 ABG Base Excess -6.7 mmol/L (-2.0-3.0) L 03/19/19 05:35 ABG Hemoglobin 12.9 gm/dl (14.0-18.0) L 03/19/19 05:35 ABG Carboxyhemoglobin 1.0 % (0.0-5.0) 03/19/19 05:35 ABG Methemoglobin 0.8 % (0.0-1.5) 03/19/19 05:35 53.4 % (95.0-99.0) L 03/19/19 05:35 60 % 03/23/19 04:49 Sodium 129 mmol/L (137-145) L 03/23/19 05:28 Potassium 5.2 mmol/L (3.6-5.0) H 03/23/19 05:28 Chloride 91.1 mmol/L (98-107) L 03/23/19 05:28 Carbon Dioxide 22 mmol/L (22-30) 03/23/19 05:28 21 mmol/L 03/23/19 05:28 BUN 91 mg/dL (9-20) H 03/23/19 05:28 6.6 mg/dL (0.8-1.5) H 03/23/19 05:28 Estimated GFR 11 ml/min 03/23/19 05:28 14 % 03/23/19 05:28 Glucose 190 mg/dL (75-100) H 03/23/19 05:28 POC Glucose 113 (70-105) H 03/23/19 11:33 Lactic Acid 1.90 mmol/L (0.7-2.0) 03/21/19 21:31 Calcium 5.3 mg/dL (8.4-10.2) L* 03/23/19 05:28 Phosphorus 7.30 mg/dL (2.5-4.5) H 03/17/19 03:45 Magnesium 2.40 mg/dL (1.7-2.3) H 03/18/19 08:40 1.80 mg/dL (0.1-1.2) H 03/23/19 05:28 5.9 mg/dL (0-0.2) H 03/16/19 17:05 0.3 mg/dL 03/16/19 17:05 AST 80 units/L (5-40) H 03/23/19 05:28 ALT 62 units/L (7-56) H 03/23/19 05:28 209 units/L (35-129) H 03/23/19 05:28 9758 units/L (55-170) H 03/23/19 05:28 CK-MB (CK-2) 54.3 ng/mL (0.0-4.0) H 03/17/19 07:16 CK-MB (CK-2) Rel Index 0.0 (0-4) 03/17/19 07:16 0.058 ng/mL (0.00-0.029) H 03/17/19 07:16 13.30 mg/dL (0.00-1.30) H 03/20/19 14:45 5.2 g/dL (6.3-8.2) L 03/23/19 05:28 2.2 g/dL (3.9-5) L 03/23/19 05:28 0.7 % 03/23/19 05:28 Triglycerides 395 mg/dL (2-149) H 03/16/19 22:32 Cholesterol 88 mg/dL (50-199) 03/16/19 22:32 10 mg/dL (50-130) L 03/16/19 22:32 7 mg/dL (40-59) L 03/16/19 22:32 12.57 % 03/16/19 22:32 TSH 2.200 mlU/mL (0.270-4.200) 03/16/19 17:05 Free T4 0.72 ng/dL (0.76-1.46) L 03/16/19 17:05 Kathy (Yellow) 03/17/19 16:05 Cloudy (Clear) 03/17/19 16:05 5.0 (5.0-7.0) 03/17/19 16:05 Ur Specific [place] 1.014 (1.003-1.030) 03/17/19 16:05 >500 mg/dL (Negative) 03/17/19 16:05 50 mg/dL (Negative) 03/17/19 16:05 Tr mg/dL (Negative) 03/17/19 16:05 Lg (Negative) 03/17/19 16:05 Neg (Negative) 03/17/19 16:05 Neg (Negative) 03/17/19 16:05 < 2.0 mg/dL (<2.0) 03/17/19 16:05 Ur Leukocyte Esterase Mod (Negative) 03/17/19 16:05 30.0 /HPF (0.0-6.0) H 03/17/19 16:05 11.0 /HPF (0.0-6.0) 03/17/19 16:05 U Epithel Cells (Auto) < 1.0 /HPF (0-13.0) 03/17/19 16:05 Few /HPF 03/17/19 16:05 2+ /HPF (YOUTH DEVELOPMENT PROFESSIONAL) 03/17/19 16:05 None seen (None Seen) 03/17/19 16:05 106.6 mg/dL (0.1-20.0) H 03/17/19 16:05 95 mmol/L 03/17/19 16:05 Vancomycin Trough 11.5 ug/mL (5.0-20.0) 03/18/19 13:19 Random Vancomycin 11.3 ug/mL (0-40.0) 03/21/19 04:26 Salicylates < 0.3 mg/dL (2.8-20.0) L 03/16/19 17:05 Presumptive negative 03/17/19 16:05 Presumptive negative 03/17/19 16:05 Acetaminophen < 5.0 ug/mL (10.0-30.0) L 03/16/19 17:05 Ur Barbiturates Screen Presumptive negative 03/17/19 16:05 Ur Phencyclidine Scrn Presumptive negative 03/17/19 16:05 Ur Amphetamines Screen Presumptive negative 03/17/19 16:05 U Benzodiazepines Scrn Presumptive positive 03/17/19 16:05 Presumptive negative 03/17/19 16:05 U Marijuana (THC) Screen Presumptive negative 03/17/19 16:05 Disclamer 03/17/19 16:05 Plasma/Serum Alcohol < 0.01 % (0-0.07) 03/16/19 17:05 Hepatitis A IgM Ab Non-reactive (NonReactive) 03/18/19 13:18 Hep Bs Antigen Non-reactive (Negative) 03/18/19 13:18 Hep B Core IgM Ab Non-reactive (NonReactive) 03/18/19 13:18 Non-reactive (NonReactive) 03/18/19 13:18 HIV 1&2 Antibody Rapid Non react (Non React) 03/17/19 11:52 Non react (Non React) 03/17/19 11:52 Influenza A (Rapid) Negative (Negative) 03/17/19 17:00 Influenza B (Rapid) Negative (Negative) 03/17/19 17:00 Group A Strep Rapid Negative (Negative) 03/17/19 17:00 Active Medications - Current Medications Current Medications: Generic Name Dose Route Start Last Admin Trade Name Freq PRN Reason Stop Dose Admin Acetaminophen 650 mg 03/16/19 22:22 03/17/19 18:49 Tylenol GA 650 mg Q4H PRN Administration Fever >101 Albuterol/Ipratropium 1 ampul 03/19/19 20:00 03/23/19 12:10 Duoneb *Not For Prn Use* IH Not Given Q4HRT PAOLO Lipase/Protease/Amylase 1 each 03/17/19 14:45 Pancreaze 10,500 Unit FEEDTUBE PRN PRN For Clogged Feeding Tube Dextrose 50 gm 03/19/19 18:39 D50w (25gm) Vial IV PRN PRN Hypoglycemia Famotidine 20 mg 03/20/19 10:00 03/23/19 09:43 Pepcid IV 20 mg DAILY PAOLO Administration Fentanyl 50 mcg 03/16/19 16:06 03/16/19 17:02 Sublimaze IV 50 mcg Q10MIN PRN Administration ANALGESIA Fentanyl 25 mcg 03/19/19 18:33 03/20/19 02:53 Sublimaze IV 25 mcg Q2H PRN Administration Pain, Moderate (4-6) Hydrocortisone Sodium Succinate 100 mg 03/18/19 20:00 03/23/19 11:39 Solu-Cortef IV 100 mg Q8H PAOLO Administration Hydrophilic Ointment 1 applic 03/16/19 15:50 Vaseline Lip Therapy TP Q2HR PRN Dry Lips Midazolam HCl 100 mg/ Sodium 100 mls @ 2 mls/hr 03/16/19 16:00 03/19/19 18:45 Chloride IV 0 mg/hr TITR PAOLO 0 mls/hr Titration Protocol 2 MG/HR Fentanyl Citrate 2,000 mcg in 100 mls @ 6.804 mls/hr 03/16/19 17:00 03/23/19 09:44 Fentanyl Drip Premix IV 0 mcg/kg/hr TITR PAOLO 0 mls/hr Titration Protocol 1 MCG/KG/HR Vasopressin 20 unit/ Sodium 101 mls @ 9.09 mls/hr 03/16/19 23:45 03/22/19 12:00 Chloride IV Infused TITR PAOLO Titration Protocol 0.03 UNITS/MIN Norepinephrine 8 mg/ Sodium 250 mls @ 3.75 mls/hr 03/17/19 02:00 03/23/19 11:39 Chloride IV 2 mcg/min TITR PAOLO 3.75 mls/hr Titration Protocol 2 MCG/MIN Phenylephrine HCl 100 mg/ 100 mls @ 3 mls/hr 03/17/19 02:30 03/19/19 18:48 Sodium Chloride IV Infused TITR PAOLO Titration Protocol 50 MCG/MIN Ceftriaxone Sodium 2 gm in 100 mls @ 200 mls/hr 03/17/19 12:00 03/23/19 09:40 Rocephin/Ns 2 Gm/100 Ml IV 200 mls/hr Q12HR PAOLO Administration Protocol Doxycycline Hyclate 100 mg/ 250 mls @ 250 mls/hr 03/17/19 12:00 03/23/19 09:49 Sodium Chloride IV 250 mls/hr Q12HR PAOLO Administration Protocol Dopamine HCl/Dextrose 800 mg in 250 mls @ 5.103 mls/hr 03/17/19 23:00 03/20/19 12:54 Intropin Drip 800 Mg/D5w 250 Ml IV 0 mcg/kg/min TITR PAOLO 0 mls/hr Titration Protocol 2 MCG/KG/MIN Amiodarone HCl 900 mg/ 500 mls @ 33.333 mls/hr 03/18/19 17:00 03/23/19 02:00 Dextrose IV 1 mg/min DIRECT PAOLO 33.333 mls/hr Administration Protocol 1 MG/MIN Propofol 1,000 mg in 100 mls @ 4.572 mls/hr 03/22/19 12:00 03/23/19 12:35 Diprivan 10 Mg/Ml IV 10 mcg/kg/min TITR PAOLO 9.144 mls/hr Titration Protocol 5 MCG/KG/MIN Sodium Chloride 100 mls @ 999 mls/hr 03/23/19 10:04 Nacl 0.9% IV NEYMAR PRN Hypotension Metoclopramide HCl 5 mg 03/21/19 19:00 03/23/19 14:14 Reglan IV 5 mg Q6H PAOLO Administration Midazolam HCl 2 mg 03/16/19 15:50 03/20/19 14:23 Versed IV 2 mg Q10MIN PRN Administration Sedation Midodrine 10 mg 03/18/19 20:00 03/23/19 11:39 Proamatine PO 10 mg Q8H PAOLO Administration Multi-Ingred Cream/Lotion/Oil/Oint 1 applic 03/16/19 15:50 03/19/19 20:10 Artificial Tears Ophth Oint OU 1 applic Q4HR PRN Administration Dry Eye(s) Ondansetron HCl 4 mg 03/16/19 22:21 Zofran IV Q8H PRN Nausea And Vomiting Simple Syrup 15 ml 03/17/19 14:45 Simple Syrup FEEDTUBE PRN PRN Hypoglycemia Simple Syrup 30 ml 03/17/19 14:45 Simple Syrup FEEDTUBE PRN PRN Hypoglycemia Sodium Bicarbonate 325 mg 03/17/19 14:45 Sodium Bicarbonate FEEDTUBE PRN PRN For Clogged Feeding Tube Nutrition/Malnutrition Assess - Dietary Evaluation Nutrition/Malnutrition Findings: Nutrition Notes Start: 03/17/19 14:22 Freq: Status: Active Protocol: Document 03/22/19 13:12 LM (Rec: 03/22/19 13:18 LM [id number]) Nutrition Notes Initial or Follow up Reassessment Current Diagnosis Acute Kidney Injury Other Pertinent Diagnosis Septic shock,Multiple organ failure, encephalopathy, rhabdomyolysis Current Diet no diet ordered Labs/Tests Na 132 K 5.6 BUN 101 Cr 7.4 BG 124 Pertinent Medications Norepinephrine Vasopressin Propofol 4.572 ml/hr (121 kcal ) Height 6 ft Weight 152.4 kg [place] Body Weight (kg) 80.90 BMI 45.6 Subjective/Other Information Per RN TF still on hold due to pressors. Burn Absent Trauma Absent Minimum of two criteria No #1 Nutrition Diagnosis Inadequate oral intake Diagnosis Progress(for reassessment Continues documentation) Is patient on ventilator? Yes Is Patient Ambulatory and/or Out of Bed No [facility] 2938.896 Kcal/Kg value to use for calculation 15 Approximate Energy Requirements Using 2286 kcal/Kg Calculation Used for Recommendations Kcal/kg Additional Notes Protein Needs: 202g (2.5g/kg IBW 80.9) Fluid Needs: 1 ml/kcal or per MD Nutrition Intervention Change Diet Order: Recommend TF when medically feasible Nutrition Support: Nepro 1.8 at 55 ml/hr Flush 150 ml q4hr for hyponatremia Kcal 2,376 Protein (gm) 107 Fluid (mL) 960 Goal #1 Start TF when medically feasible Anticipated Discharge Needs: Unable to determine at this time Follow-Up By: 03/26/19 Additional Comments Follow for POC
--- NOTE | 2019-03-23 16:16 | Progress Note ---
Assessment and Plan Patient is a 43 y/o man w/ a history of psychiatric illness (unknown which psychiatric diagnosis he has been given in the past), who presented on 03/16/19 with altered mental status. During the course of admission, patient was found to have sepsis with septic shock, rhabdomyolysis, RUBEN, and multiorgan failure. According to the patient's clinical findings, the patient likely has toxic metabolic encephalopathy. In support of this diagnosis, the multiple metabolic derangements including multiorgan failure, sepsis, septic shock requiring pressor support, RUBEN, rhabdomyolysis. Plan: 1. Metabolic encephalopathy: - Likely due to multiple underlying metabolic derangements, including multiorgan failure, sepsis, septic shock requiring pressor support, RUBEN, rhabdomyolysis. - Possible Meningo-encephalitis. Recommend LP, however platelets are currently low. Recommend for it to be done once platelets are at an acceptable level, and once patient is stable enough to tolerate. - Patient on antibiotics per ID. Recommend considering placing patient on acyclovir as well, if ok with ID team. - EEG showed generalized slowing, no seizures or epileptiform activity. - CT head showed diffuse cerebral edema. - Recommend for repeat cerebral imaging with either CT head or MRI brain once patient is stable enough. - Continue supportive care per ICU/primary/ID teams. - Discussed at length with patient's brother regarding EEG findings, altered mental status due to metabolic abnormalities and infection. - Will sign off, as I will not be covering neurology service over the weekend. Recommend for neurologist covering weekend to be consulted for further neurologic monitoring/management. Thank you for allowing me to take part in the care of this patient. Nahid Carroll MD Neurology Subjective Date of service: 03/23/19 Principal diagnosis: Septic Shock; Ac. hypoxemic resp failure; Renzo. PNA; Rhabdomyolysis; RUBEN Interval history: No acute events overnight. Objective - Exam Narrative Exam: Patient is intubated, sedated. Opens eyes to vocal stimulus. Intermittently following 1-step commands by squeezing hand and moving feet. PERRL, corneal reflexes diminished, cough/gag weakly intact. Patient moves head with visual threat when checking corneal reflexes. Withdraws to pain stimulus in all extremities. Spontanenous movement noted in LUE. 2+ reflexes throughout. - Vital Sign Vital Signs - 12hr 03/23/19 03/23/19 03/23/19 04:15 04:30 04:45 Temperature Pulse Rate 96 H 111 H 115 H Pulse Rate [ Anterior Bilateral Throughout] Pulse Rate [ Apical] Pulse Rate [ From Monitor] Respiratory 26 H 22 26 H Rate Respiratory Rate [Anterior Bilateral Throughout] Blood Pressure 122/60 109/66 118/60 O2 Sat by Pulse 97 97 98 Oximetry 03/23/19 03/23/19 03/23/19 05:00 05:15 05:30 Temperature Pulse Rate 69 68 66 Pulse Rate [ Anterior Bilateral Throughout] Pulse Rate [ Apical] Pulse Rate [ From Monitor] Respiratory 25 H 25 H 25 H Rate Respiratory Rate [Anterior Bilateral Throughout] Blood Pressure 105/51 100/49 118/61 O2 Sat by Pulse 96 96 Oximetry 03/23/19 03/23/19 03/23/19 05:45 06:00 06:15 Temperature Pulse Rate 67 65 64 Pulse Rate [ Anterior Bilateral Throughout] Pulse Rate [ Apical] Pulse Rate [ From Monitor] Respiratory 25 H 25 H 25 H Rate Respiratory Rate [Anterior Bilateral Throughout] Blood Pressure 99/52 103/49 103/50 O2 Sat by Pulse 96 97 98 Oximetry 03/23/19 03/23/19 03/23/19 06:30 06:45 07:00 Temperature Pulse Rate 64 63 63 Pulse Rate [ Anterior Bilateral Throughout] Pulse Rate [ Apical] Pulse Rate [ From Monitor] Respiratory 25 H 25 H 25 H Rate Respiratory Rate [Anterior Bilateral Throughout] Blood Pressure 107/51 105/50 104/51 O2 Sat by Pulse 97 97 97 Oximetry 03/23/19 03/23/19 03/23/19 07:15 07:30 07:45 Temperature Pulse Rate 63 84 100 H Pulse Rate [ Anterior Bilateral Throughout] Pulse Rate [ Apical] Pulse Rate [ From Monitor] Respiratory 25 H 12 25 H Rate Respiratory Rate [Anterior Bilateral Throughout] Blood Pressure 107/52 107/52 125/61 O2 Sat by Pulse 98 97 95 Oximetry 03/23/19 03/23/19 03/23/19 08:00 08:16 08:30 Temperature 98.7 F Pulse Rate 117 H 125 H 114 H Pulse Rate [ Anterior Bilateral Throughout] Pulse Rate [ 113 H Apical] Pulse Rate [ 113 H From Monitor] Respiratory 21 13 26 H Rate Respiratory Rate [Anterior Bilateral Throughout] Blood Pressure 123/63 166/109 133/58 O2 Sat by Pulse 98 99 98 Oximetry 03/23/19 03/23/19 03/23/19 08:34 08:46 08:48 Temperature Pulse Rate 75 79 75 Pulse Rate [ 71 Anterior Bilateral Throughout] Pulse Rate [ Apical] Pulse Rate [ From Monitor] Respiratory 21 Rate Respiratory 25 H Rate [Anterior Bilateral Throughout] Blood Pressure 126/61 126/61 O2 Sat by Pulse 98 97 Oximetry 03/23/19 03/23/19 03/23/19 09:00 09:15 09:30 Temperature Pulse Rate 79 70 70 Pulse Rate [ Anterior Bilateral Throughout] Pulse Rate [ Apical] Pulse Rate [ From Monitor] Respiratory 22 25 H 25 H Rate Respiratory Rate [Anterior Bilateral Throughout] Blood Pressure 116/56 100/49 105/48 O2 Sat by Pulse 100 99 99 Oximetry 03/23/19 03/23/19 03/23/19 09:45 10:00 10:16 Temperature Pulse Rate 74 97 H 122 H Pulse Rate [ Anterior Bilateral Throughout] Pulse Rate [ Apical] Pulse Rate [ From Monitor] Respiratory 25 H 16 11 L Rate Respiratory Rate [Anterior Bilateral Throughout] Blood Pressure 129/58 138/63 129/77 O2 Sat by Pulse 98 99 99 Oximetry 03/23/19 03/23/19 03/23/19 10:30 10:45 11:00 Temperature Pulse Rate 137 H 120 H 125 H Pulse Rate [ Anterior Bilateral Throughout] Pulse Rate [ Apical] Pulse Rate [ From Monitor] Respiratory 13 19 12 Rate Respiratory Rate [Anterior Bilateral Throughout] Blood Pressure 136/87 151/90 145/83 O2 Sat by Pulse 98 99 98 Oximetry 03/23/19 03/23/19 03/23/19 11:15 11:30 11:46 Temperature Pulse Rate 137 H 131 H 138 H Pulse Rate [ Anterior Bilateral Throughout] Pulse Rate [ Apical] Pulse Rate [ From Monitor] Respiratory 13 13 17 Rate Respiratory Rate [Anterior Bilateral Throughout] Blood Pressure 145/83 141/74 134/80 O2 Sat by Pulse 97 98 97 Oximetry 03/23/19 03/23/19 03/23/19 12:00 12:11 12:15 Temperature 99.2 F Pulse Rate 130 H 128 H 125 H Pulse Rate [ Anterior Bilateral Throughout] Pulse Rate [ 132 H Apical] Pulse Rate [ 113 H From Monitor] Respiratory 25 H 14 Rate Respiratory Rate [Anterior Bilateral Throughout] Blood Pressure 134/80 133/77 135/76 O2 Sat by Pulse 98 97 97 Oximetry 03/23/19 03/23/19 03/23/19 12:30 12:46 13:00 Temperature Pulse Rate 143 H 134 H 134 H Pulse Rate [ Anterior Bilateral Throughout] Pulse Rate [ Apical] Pulse Rate [ From Monitor] Respiratory 22 19 21 Rate Respiratory Rate [Anterior Bilateral Throughout] Blood Pressure 141/108 135/84 140/83 O2 Sat by Pulse 95 98 96 Oximetry 03/23/19 03/23/19 03/23/19 13:15 13:30 13:46 Temperature Pulse Rate 87 90 102 H Pulse Rate [ Anterior Bilateral Throughout] Pulse Rate [ Apical] Pulse Rate [ From Monitor] Respiratory 19 23 19 Rate Respiratory Rate [Anterior Bilateral Throughout] Blood Pressure 130/80 128/74 135/77 O2 Sat by Pulse 100 98 98 Oximetry 03/23/19 03/23/19 03/23/19 14:00 14:16 14:30 Temperature Pulse Rate 104 H 92 H 96 H Pulse Rate [ Anterior Bilateral Throughout] Pulse Rate [ Apical] Pulse Rate [ From Monitor] Respiratory 23 23 21 Rate Respiratory Rate [Anterior Bilateral Throughout] Blood Pressure 123/77 135/63 135/63 O2 Sat by Pulse 98 97 98 Oximetry 03/23/19 03/23/19 14:45 15:00 Temperature Pulse Rate 95 H 90 Pulse Rate [ Anterior Bilateral Throughout] Pulse Rate [ Apical] Pulse Rate [ From Monitor] Respiratory 23 23 Rate Respiratory Rate [Anterior Bilateral Throughout] Blood Pressure 114/74 118/79 O2 Sat by Pulse 97 99 Oximetry - General Apperance Constitutional: acutely ill - EENT EENT: ATNC, PERRL, mucous membranes moist - Respiratory Respiratory: decreased breath sounds - Cardiovascular Cardiovascular: regular rate, normal S1, normal S2 Extremities: no clubbing, cyanosis - Gastrointestinal Gastrointestinal: normoactive bowel sounds, soft, non-tender - Integumentary Integumentary: normal - Laboratory Findings CBC and BMP: 03/23/19 05:28 03/23/19 05:28 Abnormal Lab Findings: Abnormal Labs 03/16/19 03/16/19 03/16/19 15:32 16:03 16:05 WBC 27.0 H RBC 5.55 H Hgb 15.7 H Hct 47.1 H RDW Plt Count 75 L Seg Neuts % (Manual) 85.0 H Lymphocytes % (Manual) 2.0 L Monocytes % (Manual) Nucleated RBC % Seg Neutrophils # Seg Neutrophils # Man 23.0 H Lymphocytes # (Manual) 0.5 L Monocytes # (Manual) PT INR POC ABG pH ABG pH POC ABG pCO2 POC ABG pO2 ABG pO2 ABG O2 Saturation ABG Base Excess ABG Hemoglobin Oxyhemoglobin Sodium 127 L Potassium Chloride 87.8 L Carbon Dioxide 17 L BUN 49 H Creatinine 5.8 H Glucose 150 H POC Glucose 118 H Lactic Acid Calcium 6.6 L Phosphorus Magnesium 1.10 L Total Bilirubin Direct Bilirubin AST ALT Alkaline Phosphatase Total Creatine Kinase 02741 H CK-MB (CK-2) Troponin T C-Reactive Protein Total Protein Albumin Triglycerides LDL Cholesterol Direct HDL Cholesterol Free T4 Urine WBC (Auto) Urine Creatinine Salicylates Acetaminophen 03/16/19 03/16/19 03/16/19 16:59 17:05 17:05 WBC RBC Hgb Hct RDW Plt Count Seg Neuts % (Manual) Lymphocytes % (Manual) Monocytes % (Manual) Nucleated RBC % Seg Neutrophils # Seg Neutrophils # Man Lymphocytes # (Manual) Monocytes # (Manual) PT INR POC ABG pH 7.297 L ABG pH POC ABG pCO2 33.0 L POC ABG pO2 ABG pO2 ABG O2 Saturation ABG Base Excess ABG Hemoglobin Oxyhemoglobin Sodium Potassium Chloride Carbon Dioxide BUN Creatinine Glucose POC Glucose Lactic Acid Calcium Phosphorus Magnesium Total Bilirubin Direct Bilirubin AST ALT Alkaline Phosphatase Total Creatine Kinase 59717 H CK-MB (CK-2) 83.1 H Troponin T C-Reactive Protein Total Protein Albumin Triglycerides LDL Cholesterol Direct HDL Cholesterol Free T4 0.72 L Urine WBC (Auto) Urine Creatinine Salicylates Acetaminophen 03/16/19 03/16/19 03/16/19 17:05 17:05 17:05 WBC RBC Hgb Hct RDW Plt Count Seg Neuts % (Manual) Lymphocytes % (Manual) Monocytes % (Manual) Nucleated RBC % Seg Neutrophils # Seg Neutrophils # Man Lymphocytes # (Manual) Monocytes # (Manual) PT INR POC ABG pH ABG pH POC ABG pCO2 POC ABG pO2 ABG pO2 ABG O2 Saturation ABG Base Excess ABG Hemoglobin Oxyhemoglobin Sodium Potassium Chloride Carbon Dioxide BUN Creatinine Glucose POC Glucose Lactic Acid 5.10 H* Calcium Phosphorus Magnesium Total Bilirubin Direct Bilirubin AST ALT Alkaline Phosphatase Total Creatine Kinase CK-MB (CK-2) Troponin T C-Reactive Protein Total Protein Albumin Triglycerides LDL Cholesterol Direct HDL Cholesterol Free T4 Urine WBC (Auto) Urine Creatinine Salicylates < 0.3 L Acetaminophen < 5.0 L 03/16/19 03/16/19 03/16/19 17:05 17:05 20:35 WBC RBC Hgb Hct RDW Plt Count Seg Neuts % (Manual) Lymphocytes % (Manual) Monocytes % (Manual) Nucleated RBC % Seg Neutrophils # Seg Neutrophils # Man Lymphocytes # (Manual) Monocytes # (Manual) PT 15.9 H INR 1.30 H POC ABG pH ABG pH POC ABG pCO2 POC ABG pO2 ABG pO2 ABG O2 Saturation ABG Base Excess ABG Hemoglobin Oxyhemoglobin Sodium Potassium Chloride Carbon Dioxide BUN Creatinine Glucose POC Glucose Lactic Acid 3.30 H* Calcium Phosphorus Magnesium Total Bilirubin 6.20 H Direct Bilirubin 5.9 H AST 800 H ALT 120 H Alkaline Phosphatase Total Creatine Kinase CK-MB (CK-2) Troponin T C-Reactive Protein Total Protein 4.4 L Albumin 2.4 L Triglycerides LDL Cholesterol Direct HDL Cholesterol Free T4 Urine WBC (Auto) Urine Creatinine Salicylates Acetaminophen 03/16/19 03/16/19 03/16/19 21:45 22:32 Unknown WBC RBC Hgb Hct RDW Plt Count Seg Neuts % (Manual) Lymphocytes % (Manual) Monocytes % (Manual) Nucleated RBC % Seg Neutrophils # Seg Neutrophils # Man Lymphocytes # (Manual) Monocytes # (Manual) PT INR POC ABG pH ABG pH POC ABG pCO2 POC ABG pO2 ABG pO2 ABG O2 Saturation ABG Base Excess ABG Hemoglobin Oxyhemoglobin Sodium Potassium Chloride Carbon Dioxide BUN Creatinine Glucose POC Glucose Lactic Acid 3.30 H* 3.00 H* Calcium Phosphorus Magnesium Total Bilirubin Direct Bilirubin AST ALT Alkaline Phosphatase Total Creatine Kinase CK-MB (CK-2) Troponin T 0.047 H D C-Reactive Protein Total Protein Albumin Triglycerides 395 H LDL Cholesterol Direct 10 L HDL Cholesterol 7 L Free T4 Urine WBC (Auto) Urine Creatinine Salicylates Acetaminophen 03/17/19 03/17/19 03/17/19 03:45 03:45 03:45 WBC RBC Hgb Hct RDW Plt Count Seg Neuts % (Manual) Lymphocytes % (Manual) Monocytes % (Manual) Nucleated RBC % Seg Neutrophils # Seg Neutrophils # Man Lymphocytes # (Manual) Monocytes # (Manual) PT INR POC ABG pH ABG pH POC ABG pCO2 POC ABG pO2 ABG pO2 ABG O2 Saturation ABG Base Excess ABG Hemoglobin Oxyhemoglobin Sodium 131 L Potassium Chloride 88.9 L Carbon Dioxide BUN 53 H Creatinine 7.1 H Glucose POC Glucose Lactic Acid 4.10 H* Calcium 5.4 L* D Phosphorus 7.30 H Magnesium 1.60 L Total Bilirubin 5.90 H Direct Bilirubin AST 801 H ALT 109 H Alkaline Phosphatase Total Creatine Kinase 57193 H 66516 H CK-MB (CK-2) 41.5 H Troponin T 0.054 H C-Reactive Protein Total Protein 4.5 L Albumin 2.0 L Triglycerides LDL Cholesterol Direct HDL Cholesterol Free T4 Urine WBC (Auto) Urine Creatinine Salicylates Acetaminophen 03/17/19 03/17/19 03/17/19 05:47 07:16 07:16 WBC RBC Hgb Hct RDW Plt Count Seg Neuts % (Manual) Lymphocytes % (Manual) Monocytes % (Manual) Nucleated RBC % Seg Neutrophils # Seg Neutrophils # Man Lymphocytes # (Manual) Monocytes # (Manual) PT INR POC ABG pH 7.193 L ABG pH POC ABG pCO2 45.2 H POC ABG pO2 65 L ABG pO2 ABG O2 Saturation ABG Base Excess ABG Hemoglobin Oxyhemoglobin Sodium Potassium Chloride Carbon Dioxide BUN Creatinine Glucose POC Glucose Lactic Acid 5.50 H* Calcium Phosphorus Magnesium Total Bilirubin Direct Bilirubin AST ALT Alkaline Phosphatase Total Creatine Kinase 09317 H CK-MB (CK-2) 54.3 H Troponin T 0.058 H C-Reactive Protein Total Protein Albumin Triglycerides LDL Cholesterol Direct HDL Cholesterol Free T4 Urine WBC (Auto) Urine Creatinine Salicylates Acetaminophen 03/17/19 03/17/19 03/17/19 11:52 12:51 13:01 WBC RBC Hgb Hct RDW Plt Count Seg Neuts % (Manual) Lymphocytes % (Manual) Monocytes % (Manual) Nucleated RBC % Seg Neutrophils # Seg Neutrophils # Man Lymphocytes # (Manual) Monocytes # (Manual) PT INR POC ABG pH 7.154 L ABG pH POC ABG pCO2 34.3 L POC ABG pO2 73 L ABG pO2 ABG O2 Saturation ABG Base Excess ABG Hemoglobin Oxyhemoglobin Sodium Potassium Chloride Carbon Dioxide BUN Creatinine Glucose POC Glucose 60 L Lactic Acid 8.20 H* Calcium Phosphorus Magnesium Total Bilirubin Direct Bilirubin AST ALT Alkaline Phosphatase Total Creatine Kinase CK-MB (CK-2) Troponin T C-Reactive Protein Total Protein Albumin Triglycerides LDL Cholesterol Direct HDL Cholesterol Free T4 Urine WBC (Auto) Urine Creatinine Salicylates Acetaminophen 03/17/19 03/17/19 03/17/19 14:37 14:37 14:37 WBC 29.3 H RBC Hgb Hct RDW 15.8 H Plt Count 45 L Seg Neuts % (Manual) 81.0 H Lymphocytes % (Manual) 1.0 L Monocytes % (Manual) 15.0 H Nucleated RBC % Seg Neutrophils # Seg Neutrophils # Man 23.7 H Lymphocytes # (Manual) 0.3 L Monocytes # (Manual) 4.4 H PT INR POC ABG pH ABG pH POC ABG pCO2 POC ABG pO2 ABG pO2 ABG O2 Saturation ABG Base Excess ABG Hemoglobin Oxyhemoglobin Sodium Potassium Chloride Carbon Dioxide BUN Creatinine Glucose POC Glucose Lactic Acid 4.90 H* Calcium Phosphorus Magnesium Total Bilirubin Direct Bilirubin AST ALT Alkaline Phosphatase Total Creatine Kinase CK-MB (CK-2) Troponin T C-Reactive Protein 24.90 H Total Protein Albumin Triglycerides LDL Cholesterol Direct HDL Cholesterol Free T4 Urine WBC (Auto) Urine Creatinine Salicylates Acetaminophen 03/17/19 03/17/19 03/17/19 16:05 16:05 17:02 WBC RBC Hgb Hct RDW Plt Count Seg Neuts % (Manual) Lymphocytes % (Manual) Monocytes % (Manual) Nucleated RBC % Seg Neutrophils # Seg Neutrophils # Man Lymphocytes # (Manual) Monocytes # (Manual) PT INR POC ABG pH 7.183 L ABG pH POC ABG pCO2 POC ABG pO2 65 L ABG pO2 ABG O2 Saturation ABG Base Excess ABG Hemoglobin Oxyhemoglobin Sodium Potassium Chloride Carbon Dioxide BUN Creatinine Glucose POC Glucose Lactic Acid Calcium Phosphorus Magnesium Total Bilirubin Direct Bilirubin AST ALT Alkaline Phosphatase Total Creatine Kinase CK-MB (CK-2) Troponin T C-Reactive Protein Total Protein Albumin Triglycerides LDL Cholesterol Direct HDL Cholesterol Free T4 Urine WBC (Auto) 30.0 H Urine Creatinine 106.6 H Salicylates Acetaminophen 03/18/19 03/18/19 03/18/19 05:12 05:16 05:53 WBC RBC Hgb Hct RDW Plt Count Seg Neuts % (Manual) Lymphocytes % (Manual) Monocytes % (Manual) Nucleated RBC % Seg Neutrophils # Seg Neutrophils # Man Lymphocytes # (Manual) Monocytes # (Manual) PT INR POC ABG pH 7.257 L ABG pH POC ABG pCO2 31.6 L POC ABG pO2 69 L ABG pO2 ABG O2 Saturation ABG Base Excess ABG Hemoglobin Oxyhemoglobin Sodium Potassium Chloride Carbon Dioxide BUN Creatinine Glucose POC Glucose 141 H Lactic Acid 5.00 H* Calcium Phosphorus Magnesium Total Bilirubin Direct Bilirubin AST ALT Alkaline Phosphatase Total Creatine Kinase CK-MB (CK-2) Troponin T C-Reactive Protein Total Protein Albumin Triglycerides LDL Cholesterol Direct HDL Cholesterol Free T4 Urine WBC (Auto) Urine Creatinine Salicylates Acetaminophen 03/18/19 03/18/19 03/18/19 06:57 08:40 08:40 WBC 31.7 H RBC Hgb Hct RDW 15.5 H Plt Count 35 L Seg Neuts % (Manual) Lymphocytes % (Manual) Monocytes % (Manual) Nucleated RBC % Seg Neutrophils # Seg Neutrophils # Man Lymphocytes # (Manual) Monocytes # (Manual) PT INR POC ABG pH ABG pH POC ABG pCO2 POC ABG pO2 ABG pO2 ABG O2 Saturation ABG Base Excess ABG Hemoglobin Oxyhemoglobin Sodium 132 L Potassium 5.5 H D Chloride 88.5 L Carbon Dioxide 18 L BUN 71 H Creatinine 8.1 H Glucose 205 H POC Glucose Lactic Acid 5.00 H* Calcium 4.1 L* D Phosphorus Magnesium 2.40 H Total Bilirubin 7.50 H Direct Bilirubin AST 1088 H ALT 159 H Alkaline Phosphatase 190 H Total Creatine Kinase 777090 H CK-MB (CK-2) Troponin T C-Reactive Protein Total Protein 4.7 L Albumin 1.8 L Triglycerides LDL Cholesterol Direct HDL Cholesterol Free T4 Urine WBC (Auto) Urine Creatinine Salicylates Acetaminophen 03/18/19 03/18/19 03/18/19 12:33 12:50 13:19 WBC RBC Hgb Hct RDW Plt Count Seg Neuts % (Manual) Lymphocytes % (Manual) Monocytes % (Manual) Nucleated RBC % Seg Neutrophils # Seg Neutrophils # Man Lymphocytes # (Manual) Monocytes # (Manual) PT INR POC ABG pH 7.282 L ABG pH POC ABG pCO2 POC ABG pO2 67 L ABG pO2 ABG O2 Saturation ABG Base Excess ABG Hemoglobin Oxyhemoglobin Sodium Potassium Chloride Carbon Dioxide BUN Creatinine Glucose POC Glucose 129 H Lactic Acid 3.30 H* Calcium Phosphorus Magnesium Total Bilirubin Direct Bilirubin AST ALT Alkaline Phosphatase Total Creatine Kinase CK-MB (CK-2) Troponin T C-Reactive Protein Total Protein Albumin Triglycerides LDL Cholesterol Direct HDL Cholesterol Free T4 Urine WBC (Auto) Urine Creatinine Salicylates Acetaminophen 03/18/19 03/18/19 03/18/19 13:19 16:50 18:11 WBC RBC Hgb Hct RDW Plt Count Seg Neuts % (Manual) Lymphocytes % (Manual) Monocytes % (Manual) Nucleated RBC % Seg Neutrophils # Seg Neutrophils # Man Lymphocytes # (Manual) Monocytes # (Manual) PT INR POC ABG pH ABG pH POC ABG pCO2 POC ABG pO2 59 L ABG pO2 ABG O2 Saturation ABG Base Excess ABG Hemoglobin Oxyhemoglobin Sodium Potassium Chloride Carbon Dioxide BUN Creatinine Glucose POC Glucose 151 H Lactic Acid Calcium 4.2 L* Phosphorus Magnesium Total Bilirubin Direct Bilirubin AST ALT Alkaline Phosphatase Total Creatine Kinase 663940 H CK-MB (CK-2) Troponin T C-Reactive Protein Total Protein Albumin Triglycerides LDL Cholesterol Direct HDL Cholesterol Free T4 Urine WBC (Auto) Urine Creatinine Salicylates Acetaminophen 03/18/19 03/18/19 03/19/19 18:20 23:39 01:42 WBC RBC Hgb Hct RDW Plt Count Seg Neuts % (Manual) Lymphocytes % (Manual) Monocytes % (Manual) Nucleated RBC % Seg Neutrophils # Seg Neutrophils # Man Lymphocytes # (Manual) Monocytes # (Manual) PT INR POC ABG pH 7.345 L ABG pH 7.285 L POC ABG pCO2 POC ABG pO2 59 L ABG pO2 44.0 L ABG O2 Saturation 70.9 L ABG Base Excess -5.7 L ABG Hemoglobin 11.9 L Oxyhemoglobin 69.6 L Sodium Potassium Chloride Carbon Dioxide BUN Creatinine Glucose POC Glucose 152 H Lactic Acid Calcium Phosphorus Magnesium Total Bilirubin Direct Bilirubin AST ALT Alkaline Phosphatase Total Creatine Kinase CK-MB (CK-2) Troponin T C-Reactive Protein Total Protein Albumin Triglycerides LDL Cholesterol Direct HDL Cholesterol Free T4 Urine WBC (Auto) Urine Creatinine Salicylates Acetaminophen 03/19/19 03/19/19 03/19/19 04:00 04:00 05:35 WBC 36.5 H RBC Hgb Hct RDW 15.8 H Plt Count 35 L Seg Neuts % (Manual) Lymphocytes % (Manual) Monocytes % (Manual) Nucleated RBC % Seg Neutrophils # Seg Neutrophils # Man Lymphocytes # (Manual) Monocytes # (Manual) PT INR POC ABG pH ABG pH 7.265 L POC ABG pCO2 POC ABG pO2 ABG pO2 35.4 L* ABG O2 Saturation 54.4 L ABG Base Excess -6.7 L ABG Hemoglobin 12.9 L Oxyhemoglobin 53.4 L Sodium 132 L Potassium 5.7 H Chloride 89.8 L Carbon Dioxide 19 L BUN 62 H Creatinine 6.4 H Glucose 151 H POC Glucose Lactic Acid Calcium 5.2 L* D Phosphorus Magnesium Total Bilirubin 7.80 H Direct Bilirubin AST 682 H ALT 130 H Alkaline Phosphatase 167 H Total Creatine Kinase CK-MB (CK-2) Troponin T C-Reactive Protein Total Protein 4.8 L Albumin 2.3 L Triglycerides LDL Cholesterol Direct HDL Cholesterol Free T4 Urine WBC (Auto) Urine Creatinine Salicylates Acetaminophen 03/19/19 03/19/19 03/19/19 05:49 09:16 09:50 WBC RBC Hgb Hct RDW Plt Count Seg Neuts % (Manual) Lymphocytes % (Manual) Monocytes % (Manual) Nucleated RBC % Seg Neutrophils # Seg Neutrophils # Man Lymphocytes # (Manual) Monocytes # (Manual) PT INR POC ABG pH 7.222 L ABG pH POC ABG pCO2 56.6 H POC ABG pO2 ABG pO2 ABG O2 Saturation ABG Base Excess ABG Hemoglobin Oxyhemoglobin Sodium Potassium Chloride Carbon Dioxide BUN Creatinine Glucose POC Glucose 154 H Lactic Acid 2.70 H* Calcium Phosphorus Magnesium Total Bilirubin Direct Bilirubin AST ALT Alkaline Phosphatase Total Creatine Kinase CK-MB (CK-2) Troponin T C-Reactive Protein Total Protein Albumin Triglycerides LDL Cholesterol Direct HDL Cholesterol Free T4 Urine WBC (Auto) Urine Creatinine Salicylates Acetaminophen 03/19/19 03/19/19 03/19/19 09:50 11:28 17:58 WBC RBC Hgb Hct RDW Plt Count Seg Neuts % (Manual) Lymphocytes % (Manual) Monocytes % (Manual) Nucleated RBC % Seg Neutrophils # Seg Neutrophils # Man Lymphocytes # (Manual) Monocytes # (Manual) PT INR POC ABG pH 7.250 L ABG pH POC ABG pCO2 52.6 H POC ABG pO2 ABG pO2 ABG O2 Saturation ABG Base Excess ABG Hemoglobin Oxyhemoglobin Sodium Potassium Chloride Carbon Dioxide BUN Creatinine Glucose POC Glucose 160 H Lactic Acid Calcium Phosphorus Magnesium Total Bilirubin Direct Bilirubin AST ALT Alkaline Phosphatase Total Creatine Kinase 85144 H CK-MB (CK-2) Troponin T C-Reactive Protein Total Protein Albumin Triglycerides LDL Cholesterol Direct HDL Cholesterol Free T4 Urine WBC (Auto) Urine Creatinine Salicylates Acetaminophen 03/19/19 03/19/19 03/20/19 19:48 21:03 02:16 WBC RBC Hgb Hct RDW Plt Count Seg Neuts % (Manual) Lymphocytes % (Manual) Monocytes % (Manual) Nucleated RBC % Seg Neutrophils # Seg Neutrophils # Man Lymphocytes # (Manual) Monocytes # (Manual) PT INR POC ABG pH 7.279 L ABG pH POC ABG pCO2 50.3 H POC ABG pO2 129 H ABG pO2 ABG O2 Saturation ABG Base Excess ABG Hemoglobin Oxyhemoglobin Sodium Potassium Chloride Carbon Dioxide BUN Creatinine Glucose POC Glucose 119 H 119 H Lactic Acid Calcium Phosphorus Magnesium Total Bilirubin Direct Bilirubin AST ALT Alkaline Phosphatase Total Creatine Kinase CK-MB (CK-2) Troponin T C-Reactive Protein Total Protein Albumin Triglycerides LDL Cholesterol Direct HDL Cholesterol Free T4 Urine WBC (Auto) Urine Creatinine Salicylates Acetaminophen 03/20/19 03/20/19 03/20/19 04:23 05:05 09:30 WBC 36.3 H RBC Hgb Hct RDW 15.5 H Plt Count 29 L Seg Neuts % (Manual) Lymphocytes % (Manual) Monocytes % (Manual) Nucleated RBC % Seg Neutrophils # Seg Neutrophils # Man Lymphocytes # (Manual) Monocytes # (Manual) PT INR POC ABG pH ABG pH POC ABG pCO2 POC ABG pO2 280 H ABG pO2 ABG O2 Saturation ABG Base Excess ABG Hemoglobin Oxyhemoglobin Sodium Potassium Chloride Carbon Dioxide BUN Creatinine Glucose POC Glucose 115 H Lactic Acid Calcium Phosphorus Magnesium Total Bilirubin Direct Bilirubin AST ALT Alkaline Phosphatase Total Creatine Kinase CK-MB (CK-2) Troponin T C-Reactive Protein Total Protein Albumin Triglycerides LDL Cholesterol Direct HDL Cholesterol Free T4 Urine WBC (Auto) Urine Creatinine Salicylates Acetaminophen 03/20/19 03/20/19 03/20/19 09:30 09:30 11:34 WBC RBC Hgb Hct RDW Plt Count Seg Neuts % (Manual) Lymphocytes % (Manual) Monocytes % (Manual) Nucleated RBC % Seg Neutrophils # Seg Neutrophils # Man Lymphocytes # (Manual) Monocytes # (Manual) PT INR POC ABG pH ABG pH POC ABG pCO2 POC ABG pO2 ABG pO2 ABG O2 Saturation ABG Base Excess ABG Hemoglobin Oxyhemoglobin Sodium 131 L Potassium Chloride 92.3 L Carbon Dioxide 20 L BUN 68 H Creatinine 6.1 H Glucose 164 H POC Glucose 141 H Lactic Acid Calcium 5.3 L* Phosphorus Magnesium Total Bilirubin 9.50 H Direct Bilirubin AST 381 H ALT 116 H Alkaline Phosphatase 255 H Total Creatine Kinase 24856 H CK-MB (CK-2) Troponin T C-Reactive Protein Total Protein 5.1 L Albumin 2.3 L Triglycerides LDL Cholesterol Direct HDL Cholesterol Free T4 Urine WBC (Auto) Urine Creatinine Salicylates Acetaminophen 03/20/19 03/20/19 03/20/19 14:41 14:45 18:50 WBC RBC Hgb Hct RDW Plt Count Seg Neuts % (Manual) Lymphocytes % (Manual) Monocytes % (Manual) Nucleated RBC % Seg Neutrophils # Seg Neutrophils # Man Lymphocytes # (Manual) Monocytes # (Manual) PT INR POC ABG pH ABG pH POC ABG pCO2 POC ABG pO2 ABG pO2 ABG O2 Saturation ABG Base Excess ABG Hemoglobin Oxyhemoglobin Sodium Potassium Chloride Carbon Dioxide BUN Creatinine Glucose POC Glucose 117 H Lactic Acid 2.90 H* Calcium Phosphorus Magnesium Total Bilirubin Direct Bilirubin AST ALT Alkaline Phosphatase Total Creatine Kinase CK-MB (CK-2) Troponin T C-Reactive Protein 13.30 H Total Protein Albumin Triglycerides LDL Cholesterol Direct HDL Cholesterol Free T4 Urine WBC (Auto) Urine Creatinine Salicylates Acetaminophen 03/20/19 03/21/19 03/21/19 21:55 04:26 04:26 WBC 37.8 H RBC Hgb Hct RDW 15.4 H Plt Count 36 L Seg Neuts % (Manual) 93.0 H Lymphocytes % (Manual) 3.0 L Monocytes % (Manual) Nucleated RBC % 1.0 H Seg Neutrophils # 34.6 H Seg Neutrophils # Man 35.2 H Lymphocytes # (Manual) 1.1 L Monocytes # (Manual) PT INR POC ABG pH ABG pH POC ABG pCO2 POC ABG pO2 ABG pO2 ABG O2 Saturation ABG Base Excess ABG Hemoglobin Oxyhemoglobin Sodium 131 L Potassium Chloride 90.7 L Carbon Dioxide 21 L BUN 69 H Creatinine 5.7 H Glucose 170 H POC Glucose 128 H Lactic Acid Calcium 6.1 L D Phosphorus Magnesium Total Bilirubin 9.50 H Direct Bilirubin AST 308 H ALT 124 H Alkaline Phosphatase 327 H Total Creatine Kinase 51365 H CK-MB (CK-2) Troponin T C-Reactive Protein Total Protein 5.7 L Albumin 2.6 L Triglycerides LDL Cholesterol Direct HDL Cholesterol Free T4 Urine WBC (Auto) Urine Creatinine Salicylates Acetaminophen 03/21/19 03/21/19 03/21/19 05:17 05:39 08:29 WBC RBC Hgb Hct RDW Plt Count Seg Neuts % (Manual) Lymphocytes % (Manual) Monocytes % (Manual) Nucleated RBC % Seg Neutrophils # Seg Neutrophils # Man Lymphocytes # (Manual) Monocytes # (Manual) PT INR POC ABG pH ABG pH POC ABG pCO2 POC ABG pO2 209 H ABG pO2 ABG O2 Saturation ABG Base Excess ABG Hemoglobin Oxyhemoglobin Sodium Potassium Chloride Carbon Dioxide BUN Creatinine Glucose POC Glucose 145 H Lactic Acid Calcium Phosphorus Magnesium Total Bilirubin Direct Bilirubin AST ALT Alkaline Phosphatase Total Creatine Kinase 92834 H CK-MB (CK-2) Troponin T C-Reactive Protein Total Protein Albumin Triglycerides LDL Cholesterol Direct HDL Cholesterol Free T4 Urine WBC (Auto) Urine Creatinine Salicylates Acetaminophen 03/21/19 03/21/19 03/21/19 08:29 11:43 12:00 WBC RBC Hgb Hct RDW Plt Count Seg Neuts % (Manual) Lymphocytes % (Manual) Monocytes % (Manual) Nucleated RBC % Seg Neutrophils # Seg Neutrophils # Man Lymphocytes # (Manual) Monocytes # (Manual) PT INR POC ABG pH ABG pH POC ABG pCO2 POC ABG pO2 ABG pO2 ABG O2 Saturation ABG Base Excess ABG Hemoglobin Oxyhemoglobin Sodium Potassium Chloride Carbon Dioxide BUN Creatinine Glucose POC Glucose 123 H Lactic Acid 2.60 H* 2.20 H* Calcium Phosphorus Magnesium Total Bilirubin Direct Bilirubin AST ALT Alkaline Phosphatase Total Creatine Kinase CK-MB (CK-2) Troponin T C-Reactive Protein Total Protein Albumin Triglycerides LDL Cholesterol Direct HDL Cholesterol Free T4 Urine WBC (Auto) Urine Creatinine Salicylates Acetaminophen 03/21/19 03/21/19 03/21/19 14:11 18:28 19:32 WBC RBC Hgb Hct RDW Plt Count Seg Neuts % (Manual) Lymphocytes % (Manual) Monocytes % (Manual) Nucleated RBC % Seg Neutrophils # Seg Neutrophils # Man Lymphocytes # (Manual) Monocytes # (Manual) PT INR POC ABG pH 7.293 L ABG pH POC ABG pCO2 POC ABG pO2 ABG pO2 ABG O2 Saturation ABG Base Excess ABG Hemoglobin Oxyhemoglobin Sodium Potassium Chloride Carbon Dioxide BUN Creatinine Glucose POC Glucose 153 H Lactic Acid 2.10 H* Calcium Phosphorus Magnesium Total Bilirubin Direct Bilirubin AST ALT Alkaline Phosphatase Total Creatine Kinase CK-MB (CK-2) Troponin T C-Reactive Protein Total Protein Albumin Triglycerides LDL Cholesterol Direct HDL Cholesterol Free T4 Urine WBC (Auto) Urine Creatinine Salicylates Acetaminophen 03/21/19 03/22/19 03/22/19 23:38 05:08 05:51 WBC RBC Hgb Hct RDW Plt Count Seg Neuts % (Manual) Lymphocytes % (Manual) Monocytes % (Manual) Nucleated RBC % Seg Neutrophils # Seg Neutrophils # Man Lymphocytes # (Manual) Monocytes # (Manual) PT INR POC ABG pH 7.283 L ABG pH POC ABG pCO2 POC ABG pO2 53 L ABG pO2 ABG O2 Saturation ABG Base Excess ABG Hemoglobin Oxyhemoglobin Sodium Potassium Chloride Carbon Dioxide BUN Creatinine Glucose POC Glucose 149 H 131 H Lactic Acid Calcium Phosphorus Magnesium Total Bilirubin Direct Bilirubin AST ALT Alkaline Phosphatase Total Creatine Kinase CK-MB (CK-2) Troponin T C-Reactive Protein Total Protein Albumin Triglycerides LDL Cholesterol Direct HDL Cholesterol Free T4 Urine WBC (Auto) Urine Creatinine Salicylates Acetaminophen 03/22/19 03/22/19 03/22/19 08:00 08:00 18:19 WBC 36.7 H RBC Hgb 11.0 L Hct 33.5 L RDW 15.5 H Plt Count 43 L Seg Neuts % (Manual) 87.0 H Lymphocytes % (Manual) 7.0 L Monocytes % (Manual) Nucleated RBC % Seg Neutrophils # Seg Neutrophils # Man 31.9 H Lymphocytes # (Manual) Monocytes # (Manual) PT INR POC ABG pH ABG pH POC ABG pCO2 46.4 H POC ABG pO2 108 H ABG pO2 ABG O2 Saturation ABG Base Excess ABG Hemoglobin Oxyhemoglobin Sodium 132 L Potassium 5.6 H Chloride 89.6 L Carbon Dioxide 20 L BUN 101 H Creatinine 7.4 H Glucose 124 H POC Glucose Lactic Acid Calcium 5.2 L* Phosphorus Magnesium Total Bilirubin 2.80 H Direct Bilirubin AST 119 H ALT 86 H Alkaline Phosphatase 245 H Total Creatine Kinase CK-MB (CK-2) Troponin T C-Reactive Protein Total Protein 5.6 L Albumin 2.5 L Triglycerides LDL Cholesterol Direct HDL Cholesterol Free T4 Urine WBC (Auto) Urine Creatinine Salicylates Acetaminophen 03/22/19 03/23/19 03/23/19 20:37 04:49 05:28 WBC 35.9 H RBC Hgb 10.8 L Hct 33.2 L RDW 15.5 H Plt Count 49 L Seg Neuts % (Manual) 81.0 H Lymphocytes % (Manual) 3.5 L Monocytes % (Manual) Nucleated RBC % Seg Neutrophils # Seg Neutrophils # Man 29.1 H Lymphocytes # (Manual) Monocytes # (Manual) 1.4 H PT INR POC ABG pH 7.296 L ABG pH POC ABG pCO2 46.2 H POC ABG pO2 ABG pO2 ABG O2 Saturation ABG Base Excess ABG Hemoglobin Oxyhemoglobin Sodium 129 L Potassium 5.2 H Chloride 91.1 L Carbon Dioxide BUN 91 H Creatinine 6.6 H Glucose 190 H POC Glucose Lactic Acid Calcium 5.3 L* Phosphorus Magnesium Total Bilirubin 1.80 H Direct Bilirubin AST 80 H ALT 62 H Alkaline Phosphatase 209 H Total Creatine Kinase 9758 H CK-MB (CK-2) Troponin T C-Reactive Protein Total Protein 5.2 L Albumin 2.2 L Triglycerides LDL Cholesterol Direct HDL Cholesterol Free T4 Urine WBC (Auto) Urine Creatinine Salicylates Acetaminophen 03/23/19 03/23/19 03/23/19 05:28 05:31 11:33 WBC 29.7 H RBC 3.59 L Hgb 10.1 L Hct 31.1 L RDW 15.4 H Plt Count 47 L Seg Neuts % (Manual) 89.0 H Lymphocytes % (Manual) 6.0 L Monocytes % (Manual) Nucleated RBC % 1.0 H Seg Neutrophils # Seg Neutrophils # Man 26.4 H Lymphocytes # (Manual) Monocytes # (Manual) PT INR POC ABG pH ABG pH POC ABG pCO2 POC ABG pO2 ABG pO2 ABG O2 Saturation ABG Base Excess ABG Hemoglobin Oxyhemoglobin Sodium Potassium Chloride Carbon Dioxide BUN Creatinine Glucose POC Glucose 122 H 113 H Lactic Acid Calcium Phosphorus Magnesium Total Bilirubin Direct Bilirubin AST ALT Alkaline Phosphatase Total Creatine Kinase CK-MB (CK-2) Troponin T C-Reactive Protein Total Protein Albumin Triglycerides LDL Cholesterol Direct HDL Cholesterol Free T4 Urine WBC (Auto) Urine Creatinine Salicylates Acetaminophen
[2019-03-24] MEDS: METOCLOPRAMIDE 10 MG/2 ML INJ IV SCH ×4 (00:07→21:28)
[2019-03-24] MEDS: IPRATROPIUM/ALBUTEROL SULFATE 3 ML AMPUL.NEB IH SCH ×7 (01:26→20:36)
[2019-03-24] MEDS: PROPOFOL 1,000 MG/100 ML BOTTLE IV SCH ×4 (03:55→22:40)
[2019-03-24] MEDS: MIDODRINE 5 MG TAB PO SCH ×2 (04:49→12:36)
[2019-03-24] MEDS: HYDROCORTISONE SOD SUCC 100 MG/2 ML VIAL IV SCH ×3 (04:49→21:29)
[2019-03-24 05:41] LABS: Hematocrit 32.4 % (35.5-45.6); Hemoglobin 10.4 gm/dl (11.8-15.2); Mean Corpuscular HGB Conc 32 % (32-34); Mean Corpuscular Volume 87 fl (84-94); Red Blood Count 3.74 M/mm3 (3.65-5.03); Red Cell Distribution Width 14.9 % (13.2-15.2)
[2019-03-24 05:45] LABS: Platelet Count 60 K/mm3 (140-440)
[2019-03-24 06:06] LABS: Calcium 5.8 mg/dL (8.4-10.2)
[2019-03-24] MEDS ORDERED: CALCIUM GLUCONATE 2,000 MG in SODIUM CHLORIDE 0.9% 100 ML IV ONE (06:26)
--- NOTE | 2019-03-24 06:28 | Event Note ---
Date: 03/24/19 Calcium this am 5.8 (trending up from 5.3 yesterday) Ordered IV calcium gluconate 2 g. Continue to monitor Ca and replete as needed.
[2019-03-24 06:31] LABS: Basophils % (Manual) 0 % (0.0-1.8); Eosinophils % (Manual) 0 % (0.0-4.3); Total Cells Counted 100
[2019-03-24 06:33] LABS: RBC Morphology Normal
[2019-03-24] MEDS: AMIODARONE 900 MG in DEXTROSE 5% IN WATER 482 ML IV SCH ×2 (06:36→21:27)
[2019-03-24] MEDS: fentaNYL DRIP Premix 2,000 MCG/100 ML BAG IV SCH ×2 (06:38→12:36)
--- NOTE | 2019-03-24 10:06 | Progress Note ---
Assessment and Plan 1. Acute kidney injury: Vasomotor RUBEN in the setting of shock / volume depletion / Rhabdo. Baseline renal function is unknown. Patient remain anuric / oliguric. CT abdomen was negative for obstructive nephropathy. Monitor renal function. Renal prognosis is guarded. Avoid nephrotoxic agents. Meds dosage based on GFR. Patient was started on hemodialysis on 03/18/19 due to worsening metabolic acidosis and hyperkalemia. Hemodialysis: 03/18, 03/19, 03/20, 03/22, 03/23, 03/24. 2. FEN: Hyperkalemia, HD today with low K bath. Hyponatremia, monitor. Metabolic acidosis, 2/2 Lactic acidosis. Volume overload, UF with HD as tolerated. Replete Calcium. Monitor lytes. 3. Septic shock: On broad spectrum Abx. Followed by ID. Currently on Midodrine and Levophed. 4. Rhabdomyolysis: Follow CK level. 5. SVT / V.tach: Followed by Cards. 6. Respiratory failure: On vent. 7. Multiple organ failure. 8. Elevated transaminases. 9. Encephalopathy: Followed by Neuro. Examination: General appearance: well-developed, appears stated age, obese, intubated, on vent HEENT: Atraumatic Neck: supple Respiratory: coarse breath sounds Cardiology: irregular, tachycardia, no murmurs Gastrointestinal: no tenderness, obese Integumentary: no rash Neurologic: obtunded Ext: no edema Hemodialysis access: R IJ temp catheter Subjective Date of service: 03/24/19 Principal diagnosis: Septic Shock; Ac. hypoxemic resp failure; Renzo. PNA; Rhabd omyolysis; RUBEN Interval history: Patient was seen and examined at the bedside. Remain on the vent. Objective - Vital Signs Vital signs: Vital Signs - 12hr 03/23/19 03/23/19 03/23/19 22:15 22:30 22:45 Temperature Pulse Rate 80 85 85 Pulse Rate [ Anterior Bilateral Throughout] Pulse Rate [ From Monitor] Respiratory 15 15 12 Rate Respiratory Rate [Anterior Bilateral Throughout] Blood Pressure 101/56 118/70 121/73 O2 Sat by Pulse 100 100 100 Oximetry 03/23/19 03/23/19 03/23/19 23:00 23:15 23:30 Temperature Pulse Rate 85 85 86 Pulse Rate [ Anterior Bilateral Throughout] Pulse Rate [ From Monitor] Respiratory 19 16 11 L Rate Respiratory Rate [Anterior Bilateral Throughout] Blood Pressure 123/72 130/71 117/76 O2 Sat by Pulse 100 100 100 Oximetry 03/23/19 03/23/19 03/23/19 23:33 23:45 23:52 Temperature 100.1 F H Pulse Rate 83 82 Pulse Rate [ Anterior Bilateral Throughout] Pulse Rate [ From Monitor] Respiratory 22 23 Rate Respiratory Rate [Anterior Bilateral Throughout] Blood Pressure 123/69 123/69 O2 Sat by Pulse 100 100 Oximetry 03/24/19 03/24/19 03/24/19 00:00 00:15 00:30 Temperature Pulse Rate 84 79 82 Pulse Rate [ Anterior Bilateral Throughout] Pulse Rate [ 87 From Monitor] Respiratory 23 22 25 H Rate Respiratory Rate [Anterior Bilateral Throughout] Blood Pressure 132/72 102/50 119/68 O2 Sat by Pulse 100 100 100 Oximetry 03/24/19 03/24/19 03/24/19 00:45 01:00 01:15 Temperature Pulse Rate 87 80 79 Pulse Rate [ Anterior Bilateral Throughout] Pulse Rate [ From Monitor] Respiratory 15 25 H 25 H Rate Respiratory Rate [Anterior Bilateral Throughout] Blood Pressure 131/73 106/58 108/55 O2 Sat by Pulse 100 100 100 Oximetry 03/24/19 03/24/19 03/24/19 01:30 01:33 01:45 Temperature Pulse Rate 78 77 Pulse Rate [ 79 Anterior Bilateral Throughout] Pulse Rate [ From Monitor] Respiratory 24 25 H Rate Respiratory 25 H Rate [Anterior Bilateral Throughout] Blood Pressure 102/50 96/49 O2 Sat by Pulse 100 100 Oximetry 03/24/19 03/24/19 03/24/19 02:00 02:15 02:30 Temperature Pulse Rate 76 77 77 Pulse Rate [ Anterior Bilateral Throughout] Pulse Rate [ From Monitor] Respiratory 25 H 25 H 20 Rate Respiratory Rate [Anterior Bilateral Throughout] Blood Pressure 93/46 93/47 100/50 O2 Sat by Pulse 100 100 99 Oximetry 03/24/19 03/24/19 03/24/19 02:45 03:00 03:15 Temperature Pulse Rate 76 76 75 Pulse Rate [ Anterior Bilateral Throughout] Pulse Rate [ From Monitor] Respiratory 22 20 25 H Rate Respiratory Rate [Anterior Bilateral Throughout] Blood Pressure 98/50 97/50 99/52 O2 Sat by Pulse 100 99 99 Oximetry 03/24/19 03/24/19 03/24/19 03:30 03:45 04:00 Temperature 99.9 F H Pulse Rate 76 83 84 Pulse Rate [ Anterior Bilateral Throughout] Pulse Rate [ 136 H From Monitor] Respiratory 23 14 11 L Rate Respiratory Rate [Anterior Bilateral Throughout] Blood Pressure 102/51 109/59 119/68 O2 Sat by Pulse 100 100 100 Oximetry 03/24/19 03/24/19 03/24/19 04:16 04:30 04:46 Temperature Pulse Rate 131 H 126 H 123 H Pulse Rate [ Anterior Bilateral Throughout] Pulse Rate [ From Monitor] Respiratory 19 13 14 Rate Respiratory Rate [Anterior Bilateral Throughout] Blood Pressure 113/59 106/68 114/63 O2 Sat by Pulse 97 100 98 Oximetry 03/24/19 03/24/19 03/24/19 04:48 05:00 05:16 Temperature Pulse Rate 150 H 143 H 129 H Pulse Rate [ Anterior Bilateral Throughout] Pulse Rate [ From Monitor] Respiratory 18 25 H Rate Respiratory Rate [Anterior Bilateral Throughout] Blood Pressure 114/63 113/72 O2 Sat by Pulse 100 98 97 Oximetry 03/24/19 03/24/19 03/24/19 05:30 05:46 06:00 Temperature Pulse Rate 131 H 124 H 120 H Pulse Rate [ Anterior Bilateral Throughout] Pulse Rate [ From Monitor] Respiratory 22 20 25 H Rate Respiratory Rate [Anterior Bilateral Throughout] Blood Pressure 113/72 113/72 125/50 O2 Sat by Pulse 97 97 97 Oximetry 03/24/19 03/24/19 03/24/19 06:15 06:30 06:45 Temperature Pulse Rate 129 H 81 83 Pulse Rate [ Anterior Bilateral Throughout] Pulse Rate [ From Monitor] Respiratory 25 H 13 16 Rate Respiratory Rate [Anterior Bilateral Throughout] Blood Pressure 115/55 112/65 122/66 O2 Sat by Pulse 98 97 99 Oximetry 03/24/19 03/24/19 03/24/19 07:00 07:15 07:53 Temperature Pulse Rate 83 80 77 Pulse Rate [ 74 Anterior Bilateral Throughout] Pulse Rate [ From Monitor] Respiratory 25 H 17 Rate Respiratory 25 H Rate [Anterior Bilateral Throughout] Blood Pressure 118/63 111/60 108/57 O2 Sat by Pulse 100 98 98 Oximetry 03/24/19 08:00 Temperature 99.7 F H Pulse Rate Pulse Rate [ Anterior Bilateral Throughout] Pulse Rate [ From Monitor] Respiratory Rate Respiratory Rate [Anterior Bilateral Throughout] Blood Pressure O2 Sat by Pulse Oximetry - Lab 03/24/19 04:50 03/24/19 04:50 Most recent lab results ABG pH 7.265 pH Units (7.350-7.450) L 03/19/19 05:35 ABG pCO2 45.5 mm Hg 03/19/19 05:35 ABG pO2 35.4 mm Hg (80.0-90.0) L* 03/19/19 05:35 ABG HCO3 20.2 mmol/L (20.0-26.0) 03/19/19 05:35 ABG O2 Saturation 54.4 % (95.0-99.0) L 03/19/19 05:35 Calcium 5.8 mg/dL (8.4-10.2) L* 03/24/19 04:50 Phosphorus 7.30 mg/dL (2.5-4.5) H 03/17/19 03:45 Magnesium 2.40 mg/dL (1.7-2.3) H 03/18/19 08:40 106.6 mg/dL (0.1-20.0) H 03/17/19 16:05 95 mmol/L 03/17/19 16:05 Medications & Allergies - Medications Allergies/Adverse Reactions: Allergies No Known Allergies Allergy (Unverified 03/16/19 17:17) Home Medications: Home Medications Medication Instructions Recorded Confirmed Last Taken Type Unobtainable 03/18/19 03/18/19 Unknown History Active Medications: Generic Name Dose Route Start Last Admin Trade Name Freq PRN Reason Stop Dose Admin Acetaminophen 650 mg 03/16/19 22:22 03/17/19 18:49 Tylenol [place] 650 mg Q4H PRN Administration Fever >101 Albuterol/Ipratropium 1 ampul 03/19/19 20:00 03/24/19 07:52 Duoneb *Not For Prn Use* IH 1 ampul Q4HRT PAOLO Administration Lipase/Protease/Amylase 1 each 03/17/19 14:45 Pancrekarly Purcell 10,500 Unit FEEDTUBE PRN PRN For Clogged Feeding Tube Dextrose 50 gm 03/19/19 18:39 D50w (25gm) Vial IV PRN PRN Hypoglycemia Famotidine 20 mg 03/20/19 10:00 03/23/19 09:43 Pepcid IV 20 mg DAILY PAOLO Administration Fentanyl 50 mcg 03/16/19 16:06 03/16/19 17:02 Sublimaze IV 50 mcg Q10MIN PRN Administration ANALGESIA Fentanyl 25 mcg 03/19/19 18:33 03/20/19 02:53 Sublimaze IV 25 mcg Q2H PRN Administration Pain, Moderate (4-6) Hydrocortisone Sodium Succinate 50 mg 03/24/19 14:00 Solu-Cortef IV 03/24/19 23:59 Q8HR PAOLO Hydrocortisone Sodium Succinate 50 mg 03/25/19 10:00 Solu-Cortef IV 03/25/19 22:01 Q12HR PAOLO Hydrocortisone Sodium Succinate 50 mg 03/26/19 10:00 Solu-Cortef IV 03/27/19 10:01 Q24HR PAOLO Hydrophilic Ointment 1 applic 03/16/19 15:50 Vaseline Lip Therapy TP Q2HR PRN Dry Lips Midazolam HCl 100 mg/ Sodium 100 mls @ 2 mls/hr 03/16/19 16:00 03/19/19 18:45 Chloride IV 0 mg/hr TITR PAOLO 0 mls/hr Titration Protocol 2 MG/HR Fentanyl Citrate 2,000 mcg in 100 mls @ 6.804 mls/hr 03/16/19 17:00 03/24/19 06:38 Fentanyl Drip Premix IV 2 mcg/kg/hr TITR PAOLO 13.608 mls/hr Administration Protocol 1 MCG/KG/HR Vasopressin 20 unit/ Sodium 101 mls @ 9.09 mls/hr 03/16/19 23:45 03/22/19 12:00 Chloride IV Infused TITR PAOLO Titration Protocol 0.03 UNITS/MIN Norepinephrine 8 mg/ Sodium 250 mls @ 3.75 mls/hr 03/17/19 02:00 03/24/19 09:04 Chloride IV 4 mcg/min TITR PAOLO 7.5 mls/hr Titration Protocol 2 MCG/MIN Phenylephrine HCl 100 mg/ 100 mls @ 3 mls/hr 03/17/19 02:30 03/19/19 18:48 Sodium Chloride IV Infused TITR PAOLO Titration Protocol 50 MCG/MIN Ceftriaxone Sodium 2 gm in 100 mls @ 200 mls/hr 03/17/19 12:00 03/23/19 21:02 Rocephin/Ns 2 Gm/100 Ml IV 200 mls/hr Q12HR PAOLO Administration Protocol Doxycycline Hyclate 100 mg/ 250 mls @ 250 mls/hr 03/17/19 12:00 03/23/19 21:47 Sodium Chloride IV 250 mls/hr Q12HR PAOLO Administration Protocol Dopamine HCl/Dextrose 800 mg in 250 mls @ 5.103 mls/hr 03/17/19 23:00 03/20/19 12:54 Intropin Drip 800 Mg/D5w 250 Ml IV 0 mcg/kg/min TITR PAOLO 0 mls/hr Titration Protocol 2 MCG/KG/MIN Amiodarone HCl 900 mg/ 500 mls @ 33.333 mls/hr 03/18/19 17:00 03/24/19 06:36 Dextrose IV 1 mg/min DIRECT PAOLO 33.333 mls/hr Administration Protocol 1 MG/MIN Propofol 1,000 mg in 100 mls @ 4.572 mls/hr 03/22/19 12:00 03/24/19 03:55 Diprivan 10 Mg/Ml IV 15 mcg/kg/min TITR PAOLO 13.716 mls/hr Administration Protocol 5 MCG/KG/MIN Sodium Chloride 100 mls @ 999 mls/hr 03/23/19 10:04 Nacl 0.9% IV NEYMAR PRN Hypotension Metoclopramide HCl 5 mg 03/21/19 19:00 03/24/19 07:41 Reglan IV 5 mg Q6H [facility] Administration Midazolam HCl 2 mg 03/16/19 15:50 03/20/19 14:23 Versed IV 2 mg Q10MIN PRN Administration Sedation Midodrine 10 mg 03/18/19 20:00 03/24/19 04:49 Proamatine PO 10 mg Q8H PAOLO Administration Multi-Ingred Cream/Lotion/Oil/Oint 1 applic 03/16/19 15:50 03/19/19 20:10 Artificial Tears Ophth Oint OU 1 applic Q4HR PRN Administration Dry Eye(s) Ondansetron HCl 4 mg 03/16/19 22:21 Zofran IV Q8H PRN Nausea And Vomiting Simple Syrup 15 ml 03/17/19 14:45 Simple Syrup FEEDTUBE PRN PRN Hypoglycemia Simple Syrup 30 ml 03/17/19 14:45 Simple Syrup FEEDTUBE PRN PRN Hypoglycemia Sodium Bicarbonate 325 mg 03/17/19 14:45 Sodium Bicarbonate FEEDTUBE PRN PRN For Clogged Feeding Tube
[2019-03-24] MEDS: cefTRIAXone/NS 2 GM/100 ML 2 GM/100 ML BAG IV SCH ×2 (10:21→21:28)
[2019-03-24] MEDS: DOXYCYCLINE HYCLATE 100 MG in SODIUM CHLORIDE 0.9% 250ML 250 ML IV SCH ×2 (10:21→21:29)
[2019-03-24] MEDS: FAMOTIDINE 20 MG/2 ML INJ IV SCH (10:21)
--- NOTE | 2019-03-24 13:49 | Progress Note ---
Assessment and Plan Patient remains intubated on pressors. Dialysis in progress. Patient has multiple medical issues including septic shock psychiatric issues altered mental status rhabdomyolysis and acute kidney injury and multiorgan failure. During the night patient had atrial fibrillation with rapid rate but currently he is in sinus rhythm. Continue current medications and supportive care overall prognosis remains guarded due to multiple medical issues. - Patient Problems (1) Acute respiratory failure Current Visit: Yes Status: Acute (2) Altered mental status Current Visit: Yes Status: Acute (3) Atrial fibrillation with RVR Current Visit: Yes Status: Acute (4) Cardiopulmonary arrest Current Visit: Yes Status: Acute (5) Hypomagnesemia Current Visit: Yes Status: Acute (6) Polymorphic ventricular tachycardia Current Visit: Yes Status: Acute (7) Septic shock Current Visit: Yes Status: Acute (8) Thrombocytopenia Current Visit: Yes Status: Acute Subjective Date of service: 03/24/19 Principal diagnosis: Septic Shock; Ac. hypoxemic resp failure; Renzo. PNA; Rhabdomyolysis; RUBEN Objective Vital Signs Temp Pulse Pulse Pulse Resp Resp BP 03/24/19 13:15 68 107/52 03/24/19 13:00 102 H 105/61 03/24/19 12:45 107 H 107/59 03/24/19 12:30 89 91/55 03/24/19 12:15 102 H 105/53 03/24/19 12:00 98.7 F 87 104/39 03/24/19 11:45 108 H 121/64 03/24/19 11:39 115 H 113 H 24 123/73 03/24/19 11:30 79 123/73 03/24/19 11:21 80 121/67 03/24/19 11:00 36.6 F L 77 24 115/63 03/24/19 08:00 99.7 F H 03/24/19 07:53 77 74 25 H 108/57 03/24/19 07:15 80 17 111/60 03/24/19 07:00 83 25 H 118/63 03/24/19 06:45 83 16 122/66 03/24/19 06:30 81 13 112/65 03/24/19 06:15 129 H 25 H 115/55 03/24/19 06:00 120 H 25 H 125/50 03/24/19 05:46 124 H 20 113/72 03/24/19 05:30 131 H 22 113/72 03/24/19 05:16 129 H 25 H 113/72 03/24/19 05:00 143 H 18 114/63 03/24/19 04:48 150 H 03/24/19 04:46 123 H 14 114/63 03/24/19 04:30 126 H 13 106/68 03/24/19 04:16 131 H 19 113/59 03/24/19 04:00 99.9 F H 84 136 H 11 L 119/68 03/24/19 03:45 83 14 109/59 03/24/19 03:30 76 23 102/51 03/24/19 03:15 75 25 H 99/52 03/24/19 03:00 76 20 97/50 03/24/19 02:45 76 22 98/50 03/24/19 02:30 77 20 100/50 03/24/19 02:15 77 25 H 93/47 03/24/19 02:00 76 25 H 93/46 03/24/19 01:45 77 25 H 96/49 03/24/19 01:33 79 25 H 03/24/19 01:30 78 24 102/50 03/24/19 01:15 79 25 H 108/55 03/24/19 01:00 80 25 H 106/58 03/24/19 00:45 87 15 131/73 03/24/19 00:30 82 25 H 119/68 03/24/19 00:15 79 22 102/50 03/24/19 00:00 84 87 23 132/72 03/23/19 23:52 82 23 123/69 03/23/19 23:45 83 22 123/69 03/23/19 23:33 100.1 F H 03/23/19 23:30 86 11 L 117/76 03/23/19 23:15 85 16 130/71 03/23/19 23:00 85 19 123/72 03/23/19 22:45 85 12 121/73 03/23/19 22:30 85 15 118/70 03/23/19 22:15 80 15 101/56 03/23/19 22:00 81 14 98/55 03/23/19 21:45 132 H 20 100/53 03/23/19 21:30 135 H 10 L 97/61 03/23/19 21:15 137 H 25 H 108/66 03/23/19 21:00 147 H 16 112/73 03/23/19 20:46 143 H 25 H 105/69 03/23/19 20:30 159 H 19 112/76 03/23/19 20:29 148 H 112/76 03/23/19 20:16 139 H 21 121/67 03/23/19 20:00 99.6 F 136 H 153 H 19 133/75 03/23/19 19:46 140 H 16 133/75 03/23/19 19:30 150 H 26 H 145/81 03/23/19 19:16 97.8 F 153 H 21 145/81 03/23/19 19:00 135 H 19 129/84 03/23/19 18:46 145 H 19 120/86 03/23/19 18:45 146 H 120/86 03/23/19 18:30 158 H 21 105/84 03/23/19 18:16 138 H 21 105/84 03/23/19 18:15 144 H 105/84 03/23/19 18:05 97.7 F 03/23/19 18:00 155 H 21 125/76 03/23/19 17:45 145 H 19 125/76 03/23/19 17:30 164 H 22 121/86 03/23/19 17:15 152 H 23 114/90 03/23/19 17:00 149 H 21 122/83 03/23/19 16:51 150 H 122/83 03/23/19 16:46 139 H 21 122/83 03/23/19 16:45 139 H 122/83 03/23/19 16:30 141 H 23 125/85 03/23/19 16:16 139 H 24 134/76 03/23/19 16:15 140 H 134/76 03/23/19 16:00 97.0 F L 135 H 141 H 24 122/70 03/23/19 15:55 97.2 F L 116 H 28 H 125/71 03/23/19 15:46 130 H 26 H 128/74 03/23/19 15:30 102 H 29 H 129/79 03/23/19 15:15 92 H 20 126/73 03/23/19 15:00 90 23 118/79 09/27/19 14:45 95 H 23 114/74 03/23/19 14:30 96 H 21 135/63 03/23/19 14:16 92 H 23 135/63 03/23/19 14:00 104 H 23 123/77 Pulse Ox Pulse Ox 03/24/19 13:15 03/24/19 13:00 03/24/19 12:45 03/24/19 12:30 03/24/19 12:15 03/24/19 12:00 03/24/19 11:45 03/24/19 11:39 100 03/24/19 11:30 03/24/19 11:21 03/24/19 11:00 99 03/24/19 08:00 03/24/19 07:53 98 03/24/19 07:15 98 03/24/19 07:00 100 03/24/19 06:45 99 03/24/19 06:30 97 03/24/19 06:15 98 03/24/19 06:00 97 03/24/19 05:46 97 03/24/19 05:30 97 03/24/19 05:16 97 03/24/19 05:00 98 03/24/19 04:48 100 03/24/19 04:46 98 03/24/19 04:30 100 03/24/19 04:16 97 03/24/19 04:00 100 03/24/19 03:45 100 03/24/19 03:30 100 03/24/19 03:15 99 03/24/19 03:00 99 03/24/19 02:45 100 03/24/19 02:30 99 03/24/19 02:15 100 03/24/19 02:00 100 03/24/19 01:45 100 03/24/19 01:33 03/24/19 01:30 100 03/24/19 01:15 100 03/24/19 01:00 100 03/24/19 00:45 100 03/24/19 00:30 100 03/24/19 00:15 100 03/24/19 00:00 100 03/23/19 23:52 100 03/23/19 23:45 100 03/23/19 23:33 03/23/19 23:30 100 03/23/19 23:15 100 03/23/19 23:00 100 03/23/19 22:45 100 03/23/19 22:30 03/23/19 22:15 03/23/19 22:00 03/23/19 21:45 100 03/23/19 21:30 100 03/23/19 21:15 100 03/23/19 21:00 03/23/19 20:46 93 03/23/19 20:30 96 03/23/19 20:29 98 03/23/19 20:16 100 03/23/19 20:00 100 03/23/19 19:46 100 03/23/19 19:30 88 03/23/19 19:16 100 03/23/19 19:00 100 03/23/19 18:46 100 03/23/19 18:45 03/23/19 18:30 100 03/23/19 18:16 100 03/23/19 18:15 03/23/19 18:05 03/23/19 18:00 100 03/23/19 17:45 100 03/23/19 17:30 99 03/23/19 17:15 99 03/23/19 17:00 100 03/23/19 16:51 98 03/23/19 16:46 03/23/19 16:45 03/23/19 16:30 100 03/23/19 16:16 99 03/23/19 16:15 03/23/19 16:00 97 03/23/19 15:55 03/23/19 15:46 03/23/19 15:30 98 03/23/19 15:15 98 03/23/19 15:00 99 03/23/19 14:45 97 03/23/19 14:30 98 03/23/19 14:16 97 03/23/19 14:00 98 - Physical Examination General: Other (intubated) HEENT: Positive: PERRL Neck: Positive: neck supple Neuro: Positive: Other (intubated) Abdomen: Positive: Unremarkable /Rectal: Other (deferred) Skin: Positive: Clear Musculoskeletal: Decreased Range of Motion Extremities: Present: lower extr. pulses (weak, thready ) - Labs and Meds CBC 03/24/19 Range/Units 04:50 WBC 35.0 H (4.5-11.0) K/mm3 RBC 3.74 (3.65-5.03) M/mm3 Hgb 10.4 L (11.8-15.2) gm/dl Hct 32.4 L (35.5-45.6) % Plt Count 60 L (140-440) K/mm3 Comprehensive Metabolic Panel 03/24/19 Range/Units 04:50 Sodium 134 L (137-145) mmol/L Potassium 5.1 H (3.6-5.0) mmol/L Chloride 95.3 L (98-107) mmol/L Carbon Dioxide 21 L (22-30) mmol/L BUN 85 H (9-20) mg/dL Creatinine 6.4 H (0.8-1.5) mg/dL Glucose 109 H (75-100) mg/dL Calcium 5.8 L* (8.4-10.2) mg/dL - Imaging and Cardiology Echo: report reviewed ( EF 40-45%, impaired relaxation. ) - Allied health notes Allied health notes reviewed: nursing
--- NOTE | 2019-03-24 15:07 | Progress Note ---
Assessment and Plan Severe sepsis with shock. Right axilla abscess versus localized pannus/fatty collection. Acute hypoxemic respiratory failure, on mechanical ventilator support. Likely aspiration pneumonia, bilateral. Morbid obesity. Rhabdomyolysis. Acute kidney injury on HD. Leukocytosis-persistent Morbid obesity. Metabolic acidosis. Lactic acidosis. Hypomagnesemia. Elevated serum transaminases/possible shock liver. Acute encephalopathy, toxic metabolic( see Neurology consult notes) Thrombocytopenia- etiology, multifactorial- improving - keep on PRVC/AC , decrease PEEP to 8, ABG in the morning -CXR in the morning - wean FiO2 for O2 sats>92% - continue to wean Levophed for target MAP > 65 mmHg - continue reglan , resume trophic feeding at 10 cc/hr, will advance if he continues to tolerate it - Patient not a candidate for PICC line because of his renal failure and thrombocytopenia. Will change HD catheter to trialysis catheter, and discontinue femoral CVC, especially in the setting of persistent leukocytosis - continue HD/UF per nephrology - VAP bundle addressed - continue daily SAT's and SBT assessment as tolerated - target sedation for RASS 0 to -1, stop fentanyl infusion and use propofol and intermittent fentanyl dosing - prn analgesia per CPOT score - prn supportive blood transfusions to keep HgB > 7.0 - Monitor hemodynamics closely - Transfuse PRBC's to keep HgB > 7g/dL - continue empiric broad spectrum antiinfective's per ID recommendations (de- escalate based on clinical and microbiologic data) Currently on Rocephin, Vancomycin and Doxycycline. Neurology recommends the addition of anti-viral therapy - continue mobility protocols and off loading as tolerated for pressure ulcer prevention - continue to avoid nephrotoxins, adjust all medications for GFR and CRCL - continue GI & VTE prophylaxis ( SCDs and Famotidine) - accuchecks with glycemic control per SSI for target BG of 140-180 mg/dl acutely -continue steroid taper - continue other care per attending / other consultants ... attempted to reach his brother on the phone unsuccessfully to update him. Asked the RN to notify him that I had reached out to him, but his telephone number was "out of service" CONDITION: CRITICAL PROGNOSIS: GUARDED CODE STATUS: FULL CODE Discussed extensively with RT/RN The high probability of a clinically significant, sudden or life threatening deterioration of the [respiratory, renal, neurologic and Cardiac] systems required my full and direct attention, intervention and personal management. The aggregate critical care time was 37 minutes. This time is in addition to time spent performing reported procedures but includes the following: [x] Data Review and interpretation [x] Patient assessment and monitoring of vital signs [x] Documentation [x] Medication orders and management Subjective Date of service: 03/24/19 Principal diagnosis: Septic Shock; Ac. hypoxemic resp failure; Renzo. PNA; Rhabdomyolysis; RUBEN Interval history: Patient is seen today for: Severe sepsis with shock; Acute hypoxemic respiratory failure; Aspiration pneumonia; Morbid obesity; Rhabdomyolysis; Acute kidney injury; Morbid obesity; Elevated serum transaminases/possible shock liver; Acute encephalopathy (Toxic/Met) Seen and examined at bedside; 24hour events reviewed; nursing and respiratory care staff consulted; no adverse overnight events reported to me; resting peacefully in bed; remains on vasopressors but levophed down to 2 mics/min, increased to 6mcg for HD ; off vasopressin; remains critically ill on MVS;on fentanyl and propofol; s/p HD [id number] of fluid removed; s/p HD today 2L of fluid removed : on amiodarone at 1mcg/hour infusion; Did not tolerate trophic feedings yesterday, OGT was placed to LIS Vitals, labs, medications, chart and imaging reviewed. On full MVS AC 25/500/10/40% Objective Vital Signs - 12hr 03/24/19 03/24/19 03/24/19 03:00 03:15 03:30 Temperature Pulse Rate 76 75 76 Pulse Rate [ Anterior Bilateral Throughout] Pulse Rate [ From Monitor] Respiratory 20 25 H 23 Rate Respiratory Rate [Anterior Bilateral Throughout] Blood Pressure 97/50 99/52 102/51 O2 Sat by Pulse 99 99 100 Oximetry O2 Sat by Pulse Oximetry [ Anterior Bilateral Throughout] 03/24/19 03/24/19 03/24/19 03:45 04:00 04:16 Temperature 99.9 F H Pulse Rate 83 84 131 H Pulse Rate [ Anterior Bilateral Throughout] Pulse Rate [ 136 H From Monitor] Respiratory 14 11 L 19 Rate Respiratory Rate [Anterior Bilateral Throughout] Blood Pressure 109/59 119/68 113/59 O2 Sat by Pulse 100 100 97 Oximetry O2 Sat by Pulse Oximetry [ Anterior Bilateral Throughout] 03/24/19 03/24/19 03/24/19 04:30 04:46 04:48 Temperature Pulse Rate 126 H 123 H 150 H Pulse Rate [ Anterior Bilateral Throughout] Pulse Rate [ From Monitor] Respiratory 13 14 Rate Respiratory Rate [Anterior Bilateral Throughout] Blood Pressure 106/68 114/63 O2 Sat by Pulse 100 98 100 Oximetry O2 Sat by Pulse Oximetry [ Anterior Bilateral Throughout] 03/24/19 03/24/19 03/24/19 05:00 05:16 05:30 Temperature Pulse Rate 143 H 129 H 131 H Pulse Rate [ Anterior Bilateral Throughout] Pulse Rate [ From Monitor] Respiratory 18 25 H 22 Rate Respiratory Rate [Anterior Bilateral Throughout] Blood Pressure 114/63 113/72 113/72 O2 Sat by Pulse 98 97 97 Oximetry O2 Sat by Pulse Oximetry [ Anterior Bilateral Throughout] 03/24/19 03/24/19 03/24/19 05:46 06:00 06:15 Temperature Pulse Rate 124 H 120 H 129 H Pulse Rate [ Anterior Bilateral Throughout] Pulse Rate [ From Monitor] Respiratory 20 25 H 25 H Rate Respiratory Rate [Anterior Bilateral Throughout] Blood Pressure 113/72 125/50 115/55 O2 Sat by Pulse 97 97 98 Oximetry O2 Sat by Pulse Oximetry [ Anterior Bilateral Throughout] 03/24/19 03/24/19 03/24/19 06:30 06:45 07:00 Temperature Pulse Rate 81 83 83 Pulse Rate [ Anterior Bilateral Throughout] Pulse Rate [ From Monitor] Respiratory 13 16 25 H Rate Respiratory Rate [Anterior Bilateral Throughout] Blood Pressure 112/65 122/66 118/63 O2 Sat by Pulse 97 99 100 Oximetry O2 Sat by Pulse Oximetry [ Anterior Bilateral Throughout] 03/24/19 03/24/19 03/24/19 07:15 07:53 08:00 Temperature 99.7 F H Pulse Rate 80 77 Pulse Rate [ 74 Anterior Bilateral Throughout] Pulse Rate [ From Monitor] Respiratory 17 Rate Respiratory 25 H Rate [Anterior Bilateral Throughout] Blood Pressure 111/60 108/57 O2 Sat by Pulse 98 98 Oximetry O2 Sat by Pulse Oximetry [ Anterior Bilateral Throughout] 03/24/19 03/24/19 03/24/19 11:00 11:21 11:30 Temperature 36.6 F L Pulse Rate 77 80 79 Pulse Rate [ Anterior Bilateral Throughout] Pulse Rate [ From Monitor] Respiratory 24 Rate Respiratory Rate [Anterior Bilateral Throughout] Blood Pressure 115/63 121/67 123/73 O2 Sat by Pulse Oximetry O2 Sat by Pulse 99 Oximetry [ Anterior Bilateral Throughout] 03/24/19 03/24/19 03/24/19 11:39 11:45 12:00 Temperature 98.7 F Pulse Rate 115 H 108 H 87 Pulse Rate [ 113 H Anterior Bilateral Throughout] Pulse Rate [ From Monitor] Respiratory Rate Respiratory 24 Rate [Anterior Bilateral Throughout] Blood Pressure 123/73 121/64 104/39 O2 Sat by Pulse 100 Oximetry O2 Sat by Pulse Oximetry [ Anterior Bilateral Throughout] 03/24/19 03/24/19 03/24/19 12:15 12:30 12:45 Temperature Pulse Rate 102 H 89 107 H Pulse Rate [ Anterior Bilateral Throughout] Pulse Rate [ From Monitor] Respiratory Rate Respiratory Rate [Anterior Bilateral Throughout] Blood Pressure 105/53 91/55 107/59 O2 Sat by Pulse Oximetry O2 Sat by Pulse Oximetry [ Anterior Bilateral Throughout] 03/24/19 03/24/19 03/24/19 13:00 13:15 13:30 Temperature Pulse Rate 102 H 68 107 H Pulse Rate [ Anterior Bilateral Throughout] Pulse Rate [ From Monitor] Respiratory Rate Respiratory Rate [Anterior Bilateral Throughout] Blood Pressure 105/61 107/52 112/52 O2 Sat by Pulse Oximetry O2 Sat by Pulse Oximetry [ Anterior Bilateral Throughout] 03/24/19 03/24/19 03/24/19 13:45 14:00 14:15 Temperature Pulse Rate 108 H 94 H 84 Pulse Rate [ Anterior Bilateral Throughout] Pulse Rate [ From Monitor] Respiratory Rate Respiratory Rate [Anterior Bilateral Throughout] Blood Pressure 119/42 117/64 105/47 O2 Sat by Pulse Oximetry O2 Sat by Pulse Oximetry [ Anterior Bilateral Throughout] 03/24/19 03/24/19 14:24 14:30 Temperature 36.6 F L Pulse Rate 91 H 106 H Pulse Rate [ Anterior Bilateral Throughout] Pulse Rate [ From Monitor] Respiratory 25 H Rate Respiratory Rate [Anterior Bilateral Throughout] Blood Pressure 115/63 117/63 O2 Sat by Pulse Oximetry O2 Sat by Pulse 99 Oximetry [ Anterior Bilateral Throughout] Constitutional: no acute distress, other (middle aged morbidly obese CM, normocephalic with incresed respiratory effort on MVS) Eyes: icteric ENT: oropharynx moist, other (ETT 23-24 cm PEDRO) Neck: supple, no lymphadenopathy, no JVD, other (large neck circumference) Effort: mildly labored Ascultation: Bilateral: diminished breath sounds, rales Percussion: Bilateral: not dull Cardiovascular: irregular rhythm, other (tachycardia, S1,S2) Gastrointestinal: hypoactive bowel sounds, soft, non-tender, non-distended Integumentary: normal Extremities: no cyanosis, pink and warm, pulses normal, no ischemia or petechiae Neurologic: pupils equal and round, other (sedated on p[ropofol and fentanyl) Psychiatric: other (inable to assess) CBC and BMP: 03/24/19 04:50 03/24/19 04:50 ABG, PT/INR, D-dimer: ABG POC ABG pH 7.373 (7.35-7.45) 03/24/19 05:09 ABG pH 7.265 pH Units (7.350-7.450) L 03/19/19 05:35 POC ABG pCO2 37.9 (35-45) 03/24/19 05:09 ABG pCO2 45.5 mm Hg 03/19/19 05:35 POC ABG pO2 85 (80-105) 03/24/19 05:09 ABG pO2 35.4 mm Hg (80.0-90.0) L* 03/19/19 05:35 POC ABG HCO3 22.0 (22-26 mml/L) 03/24/19 05:09 POC ABG Total CO2 23 (23-27mmol/L) 03/24/19 05:09 POC ABG O2 Sat 96 03/24/19 05:09 ABG O2 Saturation 54.4 % (95.0-99.0) L 03/19/19 05:35 PT/INR, D-dimer PT 15.9 Sec. (12.2-14.9) H 03/16/19 17:05 INR 1.30 (0.87-1.13) H 03/16/19 17:05 Abnormal lab findings: Abnormal Labs 03/16/19 03/16/19 03/16/19 15:32 16:03 16:05 WBC 27.0 H RBC 5.55 H Hgb 15.7 H Hct 47.1 H RDW Plt Count 75 L Seg Neuts % (Manual) 85.0 H Lymphocytes % (Manual) 2.0 L Monocytes % (Manual) Nucleated RBC % Seg Neutrophils # Seg Neutrophils # Man 23.0 H Lymphocytes # (Manual) 0.5 L Monocytes # (Manual) PT INR POC ABG pH ABG pH POC ABG pCO2 POC ABG pO2 ABG pO2 ABG O2 Saturation ABG Base Excess ABG Hemoglobin Oxyhemoglobin Sodium 127 L Potassium Chloride 87.8 L Carbon Dioxide 17 L BUN 49 H Creatinine 5.8 H Glucose 150 H POC Glucose 118 H Lactic Acid Calcium 6.6 L Phosphorus Magnesium 1.10 L Total Bilirubin Direct Bilirubin AST ALT Alkaline Phosphatase Total Creatine Kinase 69152 H CK-MB (CK-2) Troponin T C-Reactive Protein Total Protein Albumin Triglycerides LDL Cholesterol Direct HDL Cholesterol Free T4 Urine WBC (Auto) Urine Creatinine Salicylates Acetaminophen 03/16/19 03/16/19 03/16/19 16:59 17:05 17:05 WBC RBC Hgb Hct RDW Plt Count Seg Neuts % (Manual) Lymphocytes % (Manual) Monocytes % (Manual) Nucleated RBC % Seg Neutrophils # Seg Neutrophils # Man Lymphocytes # (Manual) Monocytes # (Manual) PT INR POC ABG pH 7.297 L ABG pH POC ABG pCO2 33.0 L POC ABG pO2 ABG pO2 ABG O2 Saturation ABG Base Excess ABG Hemoglobin Oxyhemoglobin Sodium Potassium Chloride Carbon Dioxide BUN Creatinine Glucose POC Glucose Lactic Acid Calcium Phosphorus Magnesium Total Bilirubin Direct Bilirubin AST ALT Alkaline Phosphatase Total Creatine Kinase 53688 H CK-MB (CK-2) 83.1 H Troponin T C-Reactive Protein Total Protein Albumin Triglycerides LDL Cholesterol Direct HDL Cholesterol Free T4 0.72 L Urine WBC (Auto) Urine Creatinine Salicylates Acetaminophen 03/16/19 03/16/19 03/16/19 17:05 17:05 17:05 WBC RBC Hgb Hct RDW Plt Count Seg Neuts % (Manual) Lymphocytes % (Manual) Monocytes % (Manual) Nucleated RBC % Seg Neutrophils # Seg Neutrophils # Man Lymphocytes # (Manual) Monocytes # (Manual) PT INR POC ABG pH ABG pH POC ABG pCO2 POC ABG pO2 ABG pO2 ABG O2 Saturation ABG Base Excess ABG Hemoglobin Oxyhemoglobin Sodium Potassium Chloride Carbon Dioxide BUN Creatinine Glucose POC Glucose Lactic Acid 5.10 H* Calcium Phosphorus Magnesium Total Bilirubin Direct Bilirubin AST ALT Alkaline Phosphatase Total Creatine Kinase CK-MB (CK-2) Troponin T C-Reactive Protein Total Protein Albumin Triglycerides LDL Cholesterol Direct HDL Cholesterol Free T4 Urine WBC (Auto) Urine Creatinine Salicylates < 0.3 L Acetaminophen < 5.0 L 03/16/19 03/16/19 03/16/19 17:05 17:05 20:35 WBC RBC Hgb Hct RDW Plt Count Seg Neuts % (Manual) Lymphocytes % (Manual) Monocytes % (Manual) Nucleated RBC % Seg Neutrophils # Seg Neutrophils # Man Lymphocytes # (Manual) Monocytes # (Manual) PT 15.9 H INR 1.30 H POC ABG pH ABG pH POC ABG pCO2 POC ABG pO2 ABG pO2 ABG O2 Saturation ABG Base Excess ABG Hemoglobin Oxyhemoglobin Sodium Potassium Chloride Carbon Dioxide BUN Creatinine Glucose POC Glucose Lactic Acid 3.30 H* Calcium Phosphorus Magnesium Total Bilirubin 6.20 H Direct Bilirubin 5.9 H AST 800 H ALT 120 H Alkaline Phosphatase Total Creatine Kinase CK-MB (CK-2) Troponin T C-Reactive Protein Total Protein 4.4 L Albumin 2.4 L Triglycerides LDL Cholesterol Direct HDL Cholesterol Free T4 Urine WBC (Auto) Urine Creatinine Salicylates Acetaminophen 03/16/19 03/16/19 03/16/19 21:45 22:32 Unknown WBC RBC Hgb Hct RDW Plt Count Seg Neuts % (Manual) Lymphocytes % (Manual) Monocytes % (Manual) Nucleated RBC % Seg Neutrophils # Seg Neutrophils # Man Lymphocytes # (Manual) Monocytes # (Manual) PT INR POC ABG pH ABG pH POC ABG pCO2 POC ABG pO2 ABG pO2 ABG O2 Saturation ABG Base Excess ABG Hemoglobin Oxyhemoglobin Sodium Potassium Chloride Carbon Dioxide BUN Creatinine Glucose POC Glucose Lactic Acid 3.30 H* 3.00 H* Calcium Phosphorus Magnesium Total Bilirubin Direct Bilirubin AST ALT Alkaline Phosphatase Total Creatine Kinase CK-MB (CK-2) Troponin T 0.047 H D C-Reactive Protein Total Protein Albumin Triglycerides 395 H LDL Cholesterol Direct 10 L HDL Cholesterol 7 L Free T4 Urine WBC (Auto) Urine Creatinine Salicylates Acetaminophen 03/17/19 03/17/19 03/17/19 03:45 03:45 03:45 WBC RBC Hgb Hct RDW Plt Count Seg Neuts % (Manual) Lymphocytes % (Manual) Monocytes % (Manual) Nucleated RBC % Seg Neutrophils # Seg Neutrophils # Man Lymphocytes # (Manual) Monocytes # (Manual) PT INR POC ABG pH ABG pH POC ABG pCO2 POC ABG pO2 ABG pO2 ABG O2 Saturation ABG Base Excess ABG Hemoglobin Oxyhemoglobin Sodium 131 L Potassium Chloride 88.9 L Carbon Dioxide BUN 53 H Creatinine 7.1 H Glucose POC Glucose Lactic Acid 4.10 H* Calcium 5.4 L* D Phosphorus 7.30 H Magnesium 1.60 L Total Bilirubin 5.90 H Direct Bilirubin AST 801 H ALT 109 H Alkaline Phosphatase Total Creatine Kinase 54833 H 47459 H CK-MB (CK-2) 41.5 H Troponin T 0.054 H C-Reactive Protein Total Protein 4.5 L Albumin 2.0 L Triglycerides LDL Cholesterol Direct HDL Cholesterol Free T4 Urine WBC (Auto) Urine Creatinine Salicylates Acetaminophen 03/17/19 03/17/19 03/17/19 05:47 07:16 07:16 WBC RBC Hgb Hct RDW Plt Count Seg Neuts % (Manual) Lymphocytes % (Manual) Monocytes % (Manual) Nucleated RBC % Seg Neutrophils # Seg Neutrophils # Man Lymphocytes # (Manual) Monocytes # (Manual) PT INR POC ABG pH 7.193 L ABG pH POC ABG pCO2 45.2 H POC ABG pO2 65 L ABG pO2 ABG O2 Saturation ABG Base Excess ABG Hemoglobin Oxyhemoglobin Sodium Potassium Chloride Carbon Dioxide BUN Creatinine Glucose POC Glucose Lactic Acid 5.50 H* Calcium Phosphorus Magnesium Total Bilirubin Direct Bilirubin AST ALT Alkaline Phosphatase Total Creatine Kinase 62107 H CK-MB (CK-2) 54.3 H Troponin T 0.058 H C-Reactive Protein Total Protein Albumin Triglycerides LDL Cholesterol Direct HDL Cholesterol Free T4 Urine WBC (Auto) Urine Creatinine Salicylates Acetaminophen 03/17/19 03/17/19 03/17/19 11:52 12:51 13:01 WBC RBC Hgb Hct RDW Plt Count Seg Neuts % (Manual) Lymphocytes % (Manual) Monocytes % (Manual) Nucleated RBC % Seg Neutrophils # Seg Neutrophils # Man Lymphocytes # (Manual) Monocytes # (Manual) PT INR POC ABG pH 7.154 L ABG pH POC ABG pCO2 34.3 L POC ABG pO2 73 L ABG pO2 ABG O2 Saturation ABG Base Excess ABG Hemoglobin Oxyhemoglobin Sodium Potassium Chloride Carbon Dioxide BUN Creatinine Glucose POC Glucose 60 L Lactic Acid 8.20 H* Calcium Phosphorus Magnesium Total Bilirubin Direct Bilirubin AST ALT Alkaline Phosphatase Total Creatine Kinase CK-MB (CK-2) Troponin T C-Reactive Protein Total Protein Albumin Triglycerides LDL Cholesterol Direct HDL Cholesterol Free T4 Urine WBC (Auto) Urine Creatinine Salicylates Acetaminophen 09/03/17/19 03/17/19 14:37 14:37 14:37 WBC 29.3 H RBC Hgb Hct RDW 15.8 H Plt Count 45 L Seg Neuts % (Manual) 81.0 H Lymphocytes % (Manual) 1.0 L Monocytes % (Manual) 15.0 H Nucleated RBC % Seg Neutrophils # Seg Neutrophils # Man 23.7 H Lymphocytes # (Manual) 0.3 L Monocytes # (Manual) 4.4 H PT INR POC ABG pH ABG pH POC ABG pCO2 POC ABG pO2 ABG pO2 ABG O2 Saturation ABG Base Excess ABG Hemoglobin Oxyhemoglobin Sodium Potassium Chloride Carbon Dioxide BUN Creatinine Glucose POC Glucose Lactic Acid 4.90 H* Calcium Phosphorus Magnesium Total Bilirubin Direct Bilirubin AST ALT Alkaline Phosphatase Total Creatine Kinase CK-MB (CK-2) Troponin T C-Reactive Protein 24.90 H Total Protein Albumin Triglycerides LDL Cholesterol Direct HDL Cholesterol Free T4 Urine WBC (Auto) Urine Creatinine Salicylates Acetaminophen 03/17/19 03/17/19 03/17/19 16:05 16:05 17:02 WBC RBC Hgb Hct RDW Plt Count Seg Neuts % (Manual) Lymphocytes % (Manual) Monocytes % (Manual) Nucleated RBC % Seg Neutrophils # Seg Neutrophils # Man Lymphocytes # (Manual) Monocytes # (Manual) PT INR POC ABG pH 7.183 L ABG pH POC ABG pCO2 POC ABG pO2 65 L ABG pO2 ABG O2 Saturation ABG Base Excess ABG Hemoglobin Oxyhemoglobin Sodium Potassium Chloride Carbon Dioxide BUN Creatinine Glucose POC Glucose Lactic Acid Calcium Phosphorus Magnesium Total Bilirubin Direct Bilirubin AST ALT Alkaline Phosphatase Total Creatine Kinase CK-MB (CK-2) Troponin T C-Reactive Protein Total Protein Albumin Triglycerides LDL Cholesterol Direct HDL Cholesterol Free T4 Urine WBC (Auto) 30.0 H Urine Creatinine 106.6 H Salicylates Acetaminophen 03/18/19 03/18/19 03/18/19 05:12 05:16 05:53 WBC RBC Hgb Hct RDW Plt Count Seg Neuts % (Manual) Lymphocytes % (Manual) Monocytes % (Manual) Nucleated RBC % Seg Neutrophils # Seg Neutrophils # Man Lymphocytes # (Manual) Monocytes # (Manual) PT INR POC ABG pH 7.257 L ABG pH POC ABG pCO2 31.6 L POC ABG pO2 69 L ABG pO2 ABG O2 Saturation ABG Base Excess ABG Hemoglobin Oxyhemoglobin Sodium Potassium Chloride Carbon Dioxide BUN Creatinine Glucose POC Glucose 141 H Lactic Acid 5.00 H* Calcium Phosphorus Magnesium Total Bilirubin Direct Bilirubin AST ALT Alkaline Phosphatase Total Creatine Kinase CK-MB (CK-2) Troponin T C-Reactive Protein Total Protein Albumin Triglycerides LDL Cholesterol Direct HDL Cholesterol Free T4 Urine WBC (Auto) Urine Creatinine Salicylates Acetaminophen 03/18/19 03/18/19 03/18/19 06:57 08:40 08:40 WBC 31.7 H RBC Hgb Hct RDW 15.5 H Plt Count 35 L Seg Neuts % (Manual) Lymphocytes % (Manual) Monocytes % (Manual) Nucleated RBC % Seg Neutrophils # Seg Neutrophils # Man Lymphocytes # (Manual) Monocytes # (Manual) PT INR POC ABG pH ABG pH POC ABG pCO2 POC ABG pO2 ABG pO2 ABG O2 Saturation ABG Base Excess ABG Hemoglobin Oxyhemoglobin Sodium 132 L Potassium 5.5 H D Chloride 88.5 L Carbon Dioxide 18 L BUN 71 H Creatinine 8.1 H Glucose 205 H POC Glucose Lactic Acid 5.00 H* Calcium 4.1 L* D Phosphorus Magnesium 2.40 H Total Bilirubin 7.50 H Direct Bilirubin AST 1088 H ALT 159 H Alkaline Phosphatase 190 H Total Creatine Kinase 316904 H CK-MB (CK-2) Troponin T C-Reactive Protein Total Protein 4.7 L Albumin 1.8 L Triglycerides LDL Cholesterol Direct HDL Cholesterol Free T4 Urine WBC (Auto) Urine Creatinine Salicylates Acetaminophen 03/18/19 03/18/19 03/18/19 12:33 12:50 13:19 WBC RBC Hgb Hct RDW Plt Count Seg Neuts % (Manual) Lymphocytes % (Manual) Monocytes % (Manual) Nucleated RBC % Seg Neutrophils # Seg Neutrophils # Man Lymphocytes # (Manual) Monocytes # (Manual) PT INR POC ABG pH 7.282 L ABG pH POC ABG pCO2 POC ABG pO2 67 L ABG pO2 ABG O2 Saturation ABG Base Excess ABG Hemoglobin Oxyhemoglobin Sodium Potassium Chloride Carbon Dioxide BUN Creatinine Glucose POC Glucose 129 H Lactic Acid 3.30 H* Calcium Phosphorus Magnesium Total Bilirubin Direct Bilirubin AST ALT Alkaline Phosphatase Total Creatine Kinase CK-MB (CK-2) Troponin T C-Reactive Protein Total Protein Albumin Triglycerides LDL Cholesterol Direct HDL Cholesterol Free T4 Urine WBC (Auto) Urine Creatinine Salicylates Acetaminophen 03/18/19 03/18/19 03/18/19 13:19 16:50 18:11 WBC RBC Hgb Hct RDW Plt Count Seg Neuts % (Manual) Lymphocytes % (Manual) Monocytes % (Manual) Nucleated RBC % Seg Neutrophils # Seg Neutrophils # Man Lymphocytes # (Manual) Monocytes # (Manual) PT INR POC ABG pH ABG pH POC ABG pCO2 POC ABG pO2 59 L ABG pO2 ABG O2 Saturation ABG Base Excess ABG Hemoglobin Oxyhemoglobin Sodium Potassium Chloride Carbon Dioxide BUN Creatinine Glucose POC Glucose 151 H Lactic Acid Calcium 4.2 L* Phosphorus Magnesium Total Bilirubin Direct Bilirubin AST ALT Alkaline Phosphatase Total Creatine Kinase 700862 H CK-MB (CK-2) Troponin T C-Reactive Protein Total Protein Albumin Triglycerides LDL Cholesterol Direct HDL Cholesterol Free T4 Urine WBC (Auto) Urine Creatinine Salicylates Acetaminophen 03/18/19 03/18/19 03/19/19 18:20 23:39 01:42 WBC RBC Hgb Hct RDW Plt Count Seg Neuts % (Manual) Lymphocytes % (Manual) Monocytes % (Manual) Nucleated RBC % Seg Neutrophils # Seg Neutrophils # Man Lymphocytes # (Manual) Monocytes # (Manual) PT INR POC ABG pH 7.345 L ABG pH 7.285 L POC ABG pCO2 POC ABG pO2 59 L ABG pO2 44.0 L ABG O2 Saturation 70.9 L ABG Base Excess -5.7 L ABG Hemoglobin 11.9 L Oxyhemoglobin 69.6 L Sodium Potassium Chloride Carbon Dioxide BUN Creatinine Glucose POC Glucose 152 H Lactic Acid Calcium Phosphorus Magnesium Total Bilirubin Direct Bilirubin AST ALT Alkaline Phosphatase Total Creatine Kinase CK-MB (CK-2) Troponin T C-Reactive Protein Total Protein Albumin Triglycerides LDL Cholesterol Direct HDL Cholesterol Free T4 Urine WBC (Auto) Urine Creatinine Salicylates Acetaminophen 03/19/19 03/19/19 03/19/19 04:00 04:00 05:35 WBC 36.5 H RBC Hgb Hct RDW 15.8 H Plt Count 35 L Seg Neuts % (Manual) Lymphocytes % (Manual) Monocytes % (Manual) Nucleated RBC % Seg Neutrophils # Seg Neutrophils # Man Lymphocytes # (Manual) Monocytes # (Manual) PT INR POC ABG pH ABG pH 7.265 L POC ABG pCO2 POC ABG pO2 ABG pO2 35.4 L* ABG O2 Saturation 54.4 L ABG Base Excess -6.7 L ABG Hemoglobin 12.9 L Oxyhemoglobin 53.4 L Sodium 132 L Potassium 5.7 H Chloride 89.8 L Carbon Dioxide 19 L BUN 62 H Creatinine 6.4 H Glucose 151 H POC Glucose Lactic Acid Calcium 5.2 L* D Phosphorus Magnesium Total Bilirubin 7.80 H Direct Bilirubin AST 682 H ALT 130 H Alkaline Phosphatase 167 H Total Creatine Kinase CK-MB (CK-2) Troponin T C-Reactive Protein Total Protein 4.8 L Albumin 2.3 L Triglycerides LDL Cholesterol Direct HDL Cholesterol Free T4 Urine WBC (Auto) Urine Creatinine Salicylates Acetaminophen 03/19/19 03/19/19 03/19/19 05:49 09:16 09:50 WBC RBC Hgb Hct RDW Plt Count Seg Neuts % (Manual) Lymphocytes % (Manual) Monocytes % (Manual) Nucleated RBC % Seg Neutrophils # Seg Neutrophils # Man Lymphocytes # (Manual) Monocytes # (Manual) PT INR POC ABG pH 7.222 L ABG pH POC ABG pCO2 56.6 H POC ABG pO2 ABG pO2 ABG O2 Saturation ABG Base Excess ABG Hemoglobin Oxyhemoglobin Sodium Potassium Chloride Carbon Dioxide BUN Creatinine Glucose POC Glucose 154 H Lactic Acid 2.70 H* Calcium Phosphorus Magnesium Total Bilirubin Direct Bilirubin AST ALT Alkaline Phosphatase Total Creatine Kinase CK-MB (CK-2) Troponin T C-Reactive Protein Total Protein Albumin Triglycerides LDL Cholesterol Direct HDL Cholesterol Free T4 Urine WBC (Auto) Urine Creatinine Salicylates Acetaminophen 03/19/19 03/19/19 03/19/19 09:50 11:28 17:58 WBC RBC Hgb Hct RDW Plt Count Seg Neuts % (Manual) Lymphocytes % (Manual) Monocytes % (Manual) Nucleated RBC % Seg Neutrophils # Seg Neutrophils # Man Lymphocytes # (Manual) Monocytes # (Manual) PT INR POC ABG pH 7.250 L ABG pH POC ABG pCO2 52.6 H POC ABG pO2 ABG pO2 ABG O2 Saturation ABG Base Excess ABG Hemoglobin Oxyhemoglobin Sodium Potassium Chloride Carbon Dioxide BUN Creatinine Glucose POC Glucose 160 H Lactic Acid Calcium Phosphorus Magnesium Total Bilirubin Direct Bilirubin AST ALT Alkaline Phosphatase Total Creatine Kinase 34554 H CK-MB (CK-2) Troponin T C-Reactive Protein Total Protein Albumin Triglycerides LDL Cholesterol Direct HDL Cholesterol Free T4 Urine WBC (Auto) Urine Creatinine Salicylates Acetaminophen 03/19/19 03/19/19 03/20/19 19:48 21:03 02:16 WBC RBC Hgb Hct RDW Plt Count Seg Neuts % (Manual) Lymphocytes % (Manual) Monocytes % (Manual) Nucleated RBC % Seg Neutrophils # Seg Neutrophils # Man Lymphocytes # (Manual) Monocytes # (Manual) PT INR POC ABG pH 7.279 L ABG pH POC ABG pCO2 50.3 H POC ABG pO2 129 H ABG pO2 ABG O2 Saturation ABG Base Excess ABG Hemoglobin Oxyhemoglobin Sodium Potassium Chloride Carbon Dioxide BUN Creatinine Glucose POC Glucose 119 H 119 H Lactic Acid Calcium Phosphorus Magnesium Total Bilirubin Direct Bilirubin AST ALT Alkaline Phosphatase Total Creatine Kinase CK-MB (CK-2) Troponin T C-Reactive Protein Total Protein Albumin Triglycerides LDL Cholesterol Direct HDL Cholesterol Free T4 Urine WBC (Auto) Urine Creatinine Salicylates Acetaminophen 03/20/19 03/20/19 03/20/19 04:23 05:05 09:30 WBC 36.3 H RBC Hgb Hct RDW 15.5 H Plt Count 29 L Seg Neuts % (Manual) Lymphocytes % (Manual) Monocytes % (Manual) Nucleated RBC % Seg Neutrophils # Seg Neutrophils # Man Lymphocytes # (Manual) Monocytes # (Manual) PT INR POC ABG pH ABG pH POC ABG pCO2 POC ABG pO2 280 H ABG pO2 ABG O2 Saturation ABG Base Excess ABG Hemoglobin Oxyhemoglobin Sodium Potassium Chloride Carbon Dioxide BUN Creatinine Glucose POC Glucose 115 H Lactic Acid Calcium Phosphorus Magnesium Total Bilirubin Direct Bilirubin AST ALT Alkaline Phosphatase Total Creatine Kinase CK-MB (CK-2) Troponin T C-Reactive Protein Total Protein Albumin Triglycerides LDL Cholesterol Direct HDL Cholesterol Free T4 Urine WBC (Auto) Urine Creatinine Salicylates Acetaminophen 03/20/19 03/20/19 03/20/19 09:30 09:30 11:34 WBC RBC Hgb Hct RDW Plt Count Seg Neuts % (Manual) Lymphocytes % (Manual) Monocytes % (Manual) Nucleated RBC % Seg Neutrophils # Seg Neutrophils # Man Lymphocytes # (Manual) Monocytes # (Manual) PT INR POC ABG pH ABG pH POC ABG pCO2 POC ABG pO2 ABG pO2 ABG O2 Saturation ABG Base Excess ABG Hemoglobin Oxyhemoglobin Sodium 131 L Potassium Chloride 92.3 L Carbon Dioxide 20 L BUN 68 H Creatinine 6.1 H Glucose 164 H POC Glucose 141 H Lactic Acid Calcium 5.3 L* Phosphorus Magnesium Total Bilirubin 9.50 H Direct Bilirubin AST 381 H ALT 116 H Alkaline Phosphatase 255 H Total Creatine Kinase 02496 H CK-MB (CK-2) Troponin T C-Reactive Protein Total Protein 5.1 L Albumin 2.3 L Triglycerides LDL Cholesterol Direct HDL Cholesterol Free T4 Urine WBC (Auto) Urine Creatinine Salicylates Acetaminophen 03/20/19 03/20/19 03/20/19 14:41 14:45 18:50 WBC RBC Hgb Hct RDW Plt Count Seg Neuts % (Manual) Lymphocytes % (Manual) Monocytes % (Manual) Nucleated RBC % Seg Neutrophils # Seg Neutrophils # Man Lymphocytes # (Manual) Monocytes # (Manual) PT INR POC ABG pH ABG pH POC ABG pCO2 POC ABG pO2 ABG pO2 ABG O2 Saturation ABG Base Excess ABG Hemoglobin Oxyhemoglobin Sodium Potassium Chloride Carbon Dioxide BUN Creatinine Glucose POC Glucose 117 H Lactic Acid 2.90 H* Calcium Phosphorus Magnesium Total Bilirubin Direct Bilirubin AST ALT Alkaline Phosphatase Total Creatine Kinase CK-MB (CK-2) Troponin T C-Reactive Protein 13.30 H Total Protein Albumin Triglycerides LDL Cholesterol Direct HDL Cholesterol Free T4 Urine WBC (Auto) Urine Creatinine Salicylates Acetaminophen 03/20/19 03/21/19 03/21/19 21:55 04:26 04:26 WBC 37.8 H RBC Hgb Hct RDW 15.4 H Plt Count 36 L Seg Neuts % (Manual) 93.0 H Lymphocytes % (Manual) 3.0 L Monocytes % (Manual) Nucleated RBC % 1.0 H Seg Neutrophils # 34.6 H Seg Neutrophils # Man 35.2 H Lymphocytes # (Manual) 1.1 L Monocytes # (Manual) PT INR POC ABG pH ABG pH POC ABG pCO2 POC ABG pO2 ABG pO2 ABG O2 Saturation ABG Base Excess ABG Hemoglobin Oxyhemoglobin Sodium 131 L Potassium Chloride 90.7 L Carbon Dioxide 21 L BUN 69 H Creatinine 5.7 H Glucose 170 H POC Glucose 128 H Lactic Acid Calcium 6.1 L D Phosphorus Magnesium Total Bilirubin 9.50 H Direct Bilirubin AST 308 H ALT 124 H Alkaline Phosphatase 327 H Total Creatine Kinase 97519 H CK-MB (CK-2) Troponin T C-Reactive Protein Total Protein 5.7 L Albumin 2.6 L Triglycerides LDL Cholesterol Direct HDL Cholesterol Free T4 Urine WBC (Auto) Urine Creatinine Salicylates Acetaminophen 03/21/19 03/21/19 03/21/19 05:17 05:39 08:29 WBC RBC Hgb Hct RDW Plt Count Seg Neuts % (Manual) Lymphocytes % (Manual) Monocytes % (Manual) Nucleated RBC % Seg Neutrophils # Seg Neutrophils # Man Lymphocytes # (Manual) Monocytes # (Manual) PT INR POC ABG pH ABG pH POC ABG pCO2 POC ABG pO2 209 H ABG pO2 ABG O2 Saturation ABG Base Excess ABG Hemoglobin Oxyhemoglobin Sodium Potassium Chloride Carbon Dioxide BUN Creatinine Glucose POC Glucose 145 H Lactic Acid Calcium Phosphorus Magnesium Total Bilirubin Direct Bilirubin AST ALT Alkaline Phosphatase Total Creatine Kinase 08228 H CK-MB (CK-2) Troponin T C-Reactive Protein Total Protein Albumin Triglycerides LDL Cholesterol Direct HDL Cholesterol Free T4 Urine WBC (Auto) Urine Creatinine Salicylates Acetaminophen 03/21/19 03/21/19 03/21/19 08:29 11:43 12:00 WBC RBC Hgb Hct RDW Plt Count Seg Neuts % (Manual) Lymphocytes % (Manual) Monocytes % (Manual) Nucleated RBC % Seg Neutrophils # Seg Neutrophils # Man Lymphocytes # (Manual) Monocytes # (Manual) PT INR POC ABG pH ABG pH POC ABG pCO2 POC ABG pO2 ABG pO2 ABG O2 Saturation ABG Base Excess ABG Hemoglobin Oxyhemoglobin Sodium Potassium Chloride Carbon Dioxide BUN Creatinine Glucose POC Glucose 123 H Lactic Acid 2.60 H* 2.20 H* Calcium Phosphorus Magnesium Total Bilirubin Direct Bilirubin AST ALT Alkaline Phosphatase Total Creatine Kinase CK-MB (CK-2) Troponin T C-Reactive Protein Total Protein Albumin Triglycerides LDL Cholesterol Direct HDL Cholesterol Free T4 Urine WBC (Auto) Urine Creatinine Salicylates Acetaminophen 03/21/19 03/21/19 03/21/19 14:11 18:28 19:32 WBC RBC Hgb Hct RDW Plt Count Seg Neuts % (Manual) Lymphocytes % (Manual) Monocytes % (Manual) Nucleated RBC % Seg Neutrophils # Seg Neutrophils # Man Lymphocytes # (Manual) Monocytes # (Manual) PT INR POC ABG pH 7.293 L ABG pH POC ABG pCO2 POC ABG pO2 ABG pO2 ABG O2 Saturation ABG Base Excess ABG Hemoglobin Oxyhemoglobin Sodium Potassium Chloride Carbon Dioxide BUN Creatinine Glucose POC Glucose 153 H Lactic Acid 2.10 H* Calcium Phosphorus Magnesium Total Bilirubin Direct Bilirubin AST ALT Alkaline Phosphatase Total Creatine Kinase CK-MB (CK-2) Troponin T C-Reactive Protein Total Protein Albumin Triglycerides LDL Cholesterol Direct HDL Cholesterol Free T4 Urine WBC (Auto) Urine Creatinine Salicylates Acetaminophen 03/21/19 03/22/19 03/22/19 23:38 05:08 05:51 WBC RBC Hgb Hct RDW Plt Count Seg Neuts % (Manual) Lymphocytes % (Manual) Monocytes % (Manual) Nucleated RBC % Seg Neutrophils # Seg Neutrophils # Man Lymphocytes # (Manual) Monocytes # (Manual) PT INR POC ABG pH 7.283 L ABG pH POC ABG pCO2 POC ABG pO2 53 L ABG pO2 ABG O2 Saturation ABG Base Excess ABG Hemoglobin Oxyhemoglobin Sodium Potassium Chloride Carbon Dioxide BUN Creatinine Glucose POC Glucose 149 H 131 H Lactic Acid Calcium Phosphorus Magnesium Total Bilirubin Direct Bilirubin AST ALT Alkaline Phosphatase Total Creatine Kinase CK-MB (CK-2) Troponin T C-Reactive Protein Total Protein Albumin Triglycerides LDL Cholesterol Direct HDL Cholesterol Free T4 Urine WBC (Auto) Urine Creatinine Salicylates Acetaminophen 03/22/19 03/22/19 03/22/19 08:00 08:00 18:19 WBC 36.7 H RBC Hgb 11.0 L Hct 33.5 L RDW 15.5 H Plt Count 43 L Seg Neuts % (Manual) 87.0 H Lymphocytes % (Manual) 7.0 L Monocytes % (Manual) Nucleated RBC % Seg Neutrophils # Seg Neutrophils # Man 31.9 H Lymphocytes # (Manual) Monocytes # (Manual) PT INR POC ABG pH ABG pH POC ABG pCO2 46.4 H POC ABG pO2 108 H ABG pO2 ABG O2 Saturation ABG Base Excess ABG Hemoglobin Oxyhemoglobin Sodium 132 L Potassium 5.6 H Chloride 89.6 L Carbon Dioxide 20 L BUN 101 H Creatinine 7.4 H Glucose 124 H POC Glucose Lactic Acid Calcium 5.2 L* Phosphorus Magnesium Total Bilirubin 2.80 H Direct Bilirubin AST 119 H ALT 86 H Alkaline Phosphatase 245 H Total Creatine Kinase CK-MB (CK-2) Troponin T C-Reactive Protein Total Protein 5.6 L Albumin 2.5 L Triglycerides LDL Cholesterol Direct HDL Cholesterol Free T4 Urine WBC (Auto) Urine Creatinine Salicylates Acetaminophen 03/22/19 03/23/19 03/23/19 20:37 04:49 05:28 WBC 35.9 H RBC Hgb 10.8 L Hct 33.2 L RDW 15.5 H Plt Count 49 L Seg Neuts % (Manual) 81.0 H Lymphocytes % (Manual) 3.5 L Monocytes % (Manual) Nucleated RBC % Seg Neutrophils # Seg Neutrophils # Man 29.1 H Lymphocytes # (Manual) Monocytes # (Manual) 1.4 H PT INR POC ABG pH 7.296 L ABG pH POC ABG pCO2 46.2 H POC ABG pO2 ABG pO2 ABG O2 Saturation ABG Base Excess ABG Hemoglobin Oxyhemoglobin Sodium 129 L Potassium 5.2 H Chloride 91.1 L Carbon Dioxide BUN 91 H Creatinine 6.6 H Glucose 190 H POC Glucose Lactic Acid Calcium 5.3 L* Phosphorus Magnesium Total Bilirubin 1.80 H Direct Bilirubin AST 80 H ALT 62 H Alkaline Phosphatase 209 H Total Creatine Kinase 9758 H CK-MB (CK-2) Troponin T C-Reactive Protein Total Protein 5.2 L Albumin 2.2 L Triglycerides LDL Cholesterol Direct HDL Cholesterol Free T4 Urine WBC (Auto) Urine Creatinine Salicylates Acetaminophen 03/23/19 03/23/19 03/23/19 05:28 05:31 11:33 WBC 29.7 H RBC 3.59 L Hgb 10.1 L Hct 31.1 L RDW 15.4 H Plt Count 47 L Seg Neuts % (Manual) 89.0 H Lymphocytes % (Manual) 6.0 L Monocytes % (Manual) Nucleated RBC % 1.0 H Seg Neutrophils # Seg Neutrophils # Man 26.4 H Lymphocytes # (Manual) Monocytes # (Manual) PT INR POC ABG pH ABG pH POC ABG pCO2 POC ABG pO2 ABG pO2 ABG O2 Saturation ABG Base Excess ABG Hemoglobin Oxyhemoglobin Sodium Potassium Chloride Carbon Dioxide BUN Creatinine Glucose POC Glucose 122 H 113 H Lactic Acid Calcium Phosphorus Magnesium Total Bilirubin Direct Bilirubin AST ALT Alkaline Phosphatase Total Creatine Kinase CK-MB (CK-2) Troponin T C-Reactive Protein Total Protein Albumin Triglycerides LDL Cholesterol Direct HDL Cholesterol Free T4 Urine WBC (Auto) Urine Creatinine Salicylates Acetaminophen 03/23/19 03/24/19 03/24/19 17:47 00:00 04:50 WBC 35.0 H RBC Hgb 10.4 L Hct 32.4 L RDW Plt Count 60 L Seg Neuts % (Manual) 93.0 H Lymphocytes % (Manual) 5.0 L Monocytes % (Manual) Nucleated RBC % 7.0 H Seg Neutrophils # Seg Neutrophils # Man 32.6 H Lymphocytes # (Manual) Monocytes # (Manual) PT INR POC ABG pH ABG pH POC ABG pCO2 POC ABG pO2 ABG pO2 ABG O2 Saturation ABG Base Excess ABG Hemoglobin Oxyhemoglobin Sodium Potassium Chloride Carbon Dioxide BUN Creatinine Glucose POC Glucose 111 H 108 H Lactic Acid Calcium Phosphorus Magnesium Total Bilirubin Direct Bilirubin AST ALT Alkaline Phosphatase Total Creatine Kinase CK-MB (CK-2) Troponin T C-Reactive Protein Total Protein Albumin Triglycerides LDL Cholesterol Direct HDL Cholesterol Free T4 Urine WBC (Auto) Urine Creatinine Salicylates Acetaminophen 03/24/19 03/24/19 03/24/19 04:50 05:06 12:55 WBC RBC Hgb Hct RDW Plt Count Seg Neuts % (Manual) Lymphocytes % (Manual) Monocytes % (Manual) Nucleated RBC % Seg Neutrophils # Seg Neutrophils # Man Lymphocytes # (Manual) Monocytes # (Manual) PT INR POC ABG pH ABG pH POC ABG pCO2 POC ABG pO2 ABG pO2 ABG O2 Saturation ABG Base Excess ABG Hemoglobin Oxyhemoglobin Sodium 134 L Potassium 5.1 H Chloride 95.3 L Carbon Dioxide 21 L BUN 85 H Creatinine 6.4 H Glucose 109 H POC Glucose 112 H 110 H Lactic Acid Calcium 5.8 L* Phosphorus Magnesium Total Bilirubin Direct Bilirubin AST ALT Alkaline Phosphatase Total Creatine Kinase 5747 H CK-MB (CK-2) Troponin T C-Reactive Protein Total Protein Albumin Triglycerides LDL Cholesterol Direct HDL Cholesterol Free T4 Urine WBC (Auto) Urine Creatinine Salicylates Acetaminophen Allied health notes reviewed: RT
--- NOTE | 2019-03-24 15:22 | Progress Note ---
Assessment and Plan Assessment and plan: Patient is a 43 year old male with PMH of GERD, Obesity, and per family has been homeless on the streets in [place] admitted to our facility following arrival via private vehicle with AMS x 2 Days per friend. On arrival was intubated in the ED noted to have rectal temp of 105 AND SVT with rate in the 250 requiring 2 shocks delivery * Initial rhythm appeared to be SVT * Per friend patient complaining of feeling ill and has some left eye discharge, cold, clammy and diaphoretic by the time arrived to the hospital. Also mentions a possibility of a right axilla abscess. The and went to stay with his girlfriend the last 2 days and this morning when he saw the patient he was ill-appearing but sleeping. * Patient was on 4 pressors, currently on 1 * Start on Elizabeth culture including coverage for possible Meningitis CHEST 1 VIEW . IMPRESSION: 1. Endotracheal tube in good position. 2. Nasogastric tube doubled back on itself at the level of the salina with the tip not seen. The tube repositioned. CT of the chest, abdomen and pelvis without contrast . IMPRESSION: 1. Parenchymal disease in both lower lobes posteromedially may be related to aspiration pneumonia. 2. Moderately dilated small bowel bowel loops in the mid to upper abdomen anteriorly with mild associated bowel wall thickening. Localized enteritis and small bowel ischemia should be considered. CT head/brain wo contrast. IMPRESSION: 1. Some component of diffuse cerebral edema cannot be excluded. However, this finding may be artifactual secondary to patient positioning. Close follow-up is recommended. No definitive signs of herniation or large territorial infarct at this time. 2. Otherwise, no focal mass, hemorrhage, hydrocephalus, or large infarct seen. Multi-Organ failure Septic Shock Severe Sepsis Acute Metabolic Encephalopathy Acute Respiratory Failure with Hypoxia Presume ARDS SVT with Polymorphic Vtach Rhabdomyolysis Severe Metabolic Acidosis Acute Cystitis Acute Kidney Failure secondary to ATN ANURIC Thrombocytopenia, Presume DIC Shock Liver Hypomagnesemia, Suspect Aspiration pneumonia Right Axillary cellulitis Enteritis Hypoglycemia-IMPROVED NMS; was considered and mental health consulted recommended supportive care because of the critical nature of the condition. Plan: Continue supportive care Neurology consult; appreciated EEG; generalized slowing, no epilpetiform focus Dialysis was done; nephrology is following Specialist impressions noted and appreciated Wean pressors as needed, currently on levophed Continue bicarb drip Holding further fluids due to poor urine output, Aspiration Precautions and VAP bundle Echo reviewed and noted Ultrasound to further evaluate right axilla to r/o abscess vs LAD Monitor Blood glucose prevent hypoglycemia UDS noted, only shows benzos, ?from here or outside. per family no hx of drugs CK is still very high, but trending down Patients BP is better DVT/GI prophy Poor prognosis Discussed with his brother on the phone. Advanced care planning, family opting against DNR, wants all done. Will like a call if patient codes as they may opt for limited code The high probability of a clinically significant, sudden or life threatening deterioration of the [multiple organs] system(s) required my full and direct attention, intervention and personal management. The aggregate critical care time was [45] minutes. This time is in addition to time spent performing reported procedures but includes the following: [x] Data Review and interpretation [x] Patient assessment and monitoring of vital signs [x] Documentation [x] Medication orders and management History Interval history: Patient was seen and evaluated this morning patient was intubated and on mechanical ventilation. Discussed the management plan with patient's nurse. patient on levophed. Hospitalist Physical - Physical exam Narrative exam: Patient is intubated and on mechanical ventilation. The patient is morbidly obese. Vital signs as documented. Head exam is unremarkable. No scleral icterus . Neck is without jugular venous distension, thyromegaly, or carotid bruits. Lungs are clear to auscultation. Cardiac exam reveals regular rate and Rhythm. Abdominal exam reveals normal bowel sounds. Extremities are nonedematous and both femoral and pedal pulses are normal. 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 - Constitutional Vitals: Temp Pulse Resp BP Pulse Ox 36.6 F L 133 H 25 H 130/80 99 03/24/19 14:30 03/24/19 14:58 03/24/19 14:30 03/24/19 14:58 03/24/19 14:58 General appearance: Present: severe distress, obese Results - Labs CBC & Chem 7: 03/24/19 04:50 03/24/19 04:50 Labs: Laboratory Last Values WBC 35.0 K/mm3 (4.5-11.0) H 03/24/19 04:50 RBC 3.74 M/mm3 (3.65-5.03) 03/24/19 04:50 Hgb 10.4 gm/dl (11.8-15.2) L 03/24/19 04:50 Hct 32.4 % (35.5-45.6) L 03/24/19 04:50 MCV 87 fl (84-94) 03/24/19 04:50 MCH 28 pg (28-32) 03/24/19 04:50 MCHC 32 % (32-34) 03/24/19 04:50 RDW 14.9 % (13.2-15.2) 03/24/19 04:50 Plt Count 60 K/mm3 (140-440) L 03/24/19 04:50 [place] % (Auto) 1.6 % (0.0-7.3) 03/21/19 04:26 [place] # 0.6 K/mm3 (0.0-0.8) 03/21/19 04:26 Add Manual Diff Complete 03/24/19 04:50 Total Counted 100 03/24/19 04:50 Seg Neutrophils % Side Laster Tack 03/24/19 04:50 Seg Neuts % (Manual) 93.0 % (40.0-70.0) H 03/24/19 04:50 0 % 03/24/19 04:50 5.0 % (13.4-35.0) L 03/24/19 04:50 Reactive Lymphs % (Man) 0 % 03/24/19 04:50 2.0 % (0.0-7.3) 03/24/19 04:50 0 % (0.0-4.3) 03/24/19 04:50 0 % (0.0-1.8) 03/24/19 04:50 0 % 03/24/19 04:50 0 % 03/24/19 04:50 0 % 03/24/19 04:50 0 % 03/24/19 04:50 Nucleated RBC % 7.0 % (0.0-0.9) H 03/24/19 04:50 Seg Neutrophils # 34.6 K/mm3 (1.8-7.7) H 03/21/19 04:26 Seg Neutrophils # Man 32.6 K/mm3 (1.8-7.7) H 03/24/19 04:50 Band Neutrophils # 0.0 K/mm3 03/24/19 04:50 1.8 K/mm3 (1.2-5.4) 03/24/19 04:50 Abs React Lymphs (Man) 0.0 K/mm3 03/24/19 04:50 0.7 K/mm3 (0.0-0.8) 03/24/19 04:50 0.0 K/mm3 (0.0-0.4) 03/24/19 04:50 0.0 K/mm3 (0.0-0.1) 03/24/19 04:50 0.0 K/mm3 03/24/19 04:50 0.0 K/mm3 03/24/19 04:50 0.0 K/mm3 03/24/19 04:50 Blast Cells # 0.0 K/mm3 03/24/19 04:50 WBC Morphology Not Reportable 03/24/19 04:50 Hypersegmented Neuts Not Reportable 03/24/19 04:50 Hyposegmented Neuts Not Reportable 03/24/19 04:50 Hypogranular Neuts Not Reportable 03/24/19 04:50 Not Reportable 03/24/19 04:50 Not Reportable 03/24/19 04:50 Not Reportable 03/24/19 04:50 Not Reportable 03/24/19 04:50 Not Reportable 03/24/19 04:50 Not Reportable 03/24/19 04:50 Not Reportable 03/24/19 04:50 Not Reportable 03/24/19 04:50 Plt Clumps, EDTA Not Reportable 03/24/19 04:50 Not Reportable 03/24/19 04:50 Not Reportable 03/24/19 04:50 Not Reportable 03/24/19 04:50 Plt Morphology Comment Not Reportable 03/24/19 04:50 RBC Morphology Normal 03/24/19 04:50 Dimorphic RBCs Not Reportable 03/24/19 04:50 Not Reportable 03/24/19 04:50 Not Reportable 03/24/19 04:50 Not Reportable 03/24/19 04:50 Not Reportable 03/24/19 04:50 Not Reportable 03/24/19 04:50 Not Reportable 03/24/19 04:50 Not Reportable 03/24/19 04:50 Not Reportable 03/24/19 04:50 Not Reportable 03/24/19 04:50 Not Reportable 03/24/19 04:50 Not Reportable 03/24/19 04:50 Not Reportable 03/24/19 04:50 Few 03/22/19 20:37 Not Reportable 03/24/19 04:50 Not Reportable 03/24/19 04:50 Not Reportable 03/24/19 04:50 Not Reportable 03/24/19 04:50 Not Reportable 03/24/19 04:50 Not Reportable 03/24/19 04:50 Not Reportable 03/24/19 04:50 Acanthocytes (Spur) Not Reportable 03/24/19 04:50 Rouleaux Not Reportable 03/24/19 04:50 Not Reportable 03/24/19 04:50 Not Reportable 03/24/19 04:50 Not Reportable 03/24/19 04:50 Not Reportable 03/24/19 04:50 Hem Pathologist Commnt Sent to pathology 03/24/19 04:50 PT 15.9 Sec. (12.2-14.9) H 03/16/19 17:05 INR 1.30 (0.87-1.13) H 03/16/19 17:05 APTT 31.7 Sec. (24.2-36.6) 03/16/19 17:05 POC ABG pH 7.373 (7.35-7.45) 03/24/19 05:09 ABG pH 7.265 pH Units (7.350-7.450) L 03/19/19 05:35 POC ABG pCO2 37.9 (35-45) 03/24/19 05:09 ABG pCO2 45.5 mm Hg 03/19/19 05:35 POC ABG pO2 85 (80-105) 03/24/19 05:09 ABG pO2 35.4 mm Hg (80.0-90.0) L* 03/19/19 05:35 POC ABG HCO3 22.0 (22-26 mml/L) 03/24/19 05:09 ABG HCO3 20.2 mmol/L (20.0-26.0) 03/19/19 05:35 POC ABG Total CO2 23 (23-27mmol/L) 03/24/19 05:09 POC ABG O2 Sat 96 03/24/19 05:09 ABG O2 Saturation 54.4 % (95.0-99.0) L 03/19/19 05:35 ABG O2 Content 9.7 (0.0-44) 03/19/19 05:35 POC ABG Base Excess -3 ((-2) - (+3)mmol/L) 03/24/19 05:09 ABG Base Excess -6.7 mmol/L (-2.0-3.0) L 03/19/19 05:35 ABG Hemoglobin 12.9 gm/dl (14.0-18.0) L 03/19/19 05:35 ABG Carboxyhemoglobin 1.0 % (0.0-5.0) 03/19/19 05:35 ABG Methemoglobin 0.8 % (0.0-1.5) 03/19/19 05:35 53.4 % (95.0-99.0) L 03/19/19 05:35 40 % 03/24/19 05:09 Sodium 134 mmol/L (137-145) L 03/24/19 04:50 Potassium 5.1 mmol/L (3.6-5.0) H 03/24/19 04:50 Chloride 95.3 mmol/L (98-107) L 03/24/19 04:50 Carbon Dioxide 21 mmol/L (22-30) L 03/24/19 04:50 23 mmol/L 03/24/19 04:50 BUN 85 mg/dL (9-20) H 03/24/19 04:50 6.4 mg/dL (0.8-1.5) H 03/24/19 04:50 Estimated GFR 11 ml/min 03/24/19 04:50 13 % 03/24/19 04:50 Glucose 109 mg/dL (75-100) H 03/24/19 04:50 POC Glucose 110 (70-105) H 03/24/19 12:55 Lactic Acid 1.90 mmol/L (0.7-2.0) 03/21/19 21:31 Calcium 5.8 mg/dL (8.4-10.2) L* 03/24/19 04:50 Phosphorus 7.30 mg/dL (2.5-4.5) H 03/17/19 03:45 Magnesium 2.40 mg/dL (1.7-2.3) H 03/18/19 08:40 1.80 mg/dL (0.1-1.2) H 03/23/19 05:28 5.9 mg/dL (0-0.2) H 03/16/19 17:05 0.3 mg/dL 03/16/19 17:05 AST 80 units/L (5-40) H 03/23/19 05:28 ALT 62 units/L (7-56) H 03/23/19 05:28 209 units/L (35-129) H 03/23/19 05:28 5747 units/L (55-170) H 03/24/19 04:50 CK-MB (CK-2) 54.3 ng/mL (0.0-4.0) H 03/17/19 07:16 CK-MB (CK-2) Rel Index 0.0 (0-4) 03/17/19 07:16 0.058 ng/mL (0.00-0.029) H 03/17/19 07:16 13.30 mg/dL (0.00-1.30) H 03/20/19 14:45 5.2 g/dL (6.3-8.2) L 03/23/19 05:28 2.2 g/dL (3.9-5) L 03/23/19 05:28 0.7 % 03/23/19 05:28 Triglycerides 395 mg/dL (2-149) H 03/16/19 22:32 Cholesterol 88 mg/dL (50-199) 03/16/19 22:32 10 mg/dL (50-130) L 03/16/19 22:32 7 mg/dL (40-59) L 03/16/19 22:32 12.57 % 03/16/19 22:32 TSH 2.200 mlU/mL (0.270-4.200) 03/16/19 17:05 Free T4 0.72 ng/dL (0.76-1.46) L 03/16/19 17:05 Kathy (Yellow) 03/17/19 16:05 Cloudy (Clear) 03/17/19 16:05 5.0 (5.0-7.0) 03/17/19 16:05 Ur Specific [place] 1.014 (1.003-1.030) 03/17/19 16:05 >500 mg/dL (Negative) 03/17/19 16:05 50 mg/dL (Negative) 03/17/19 16:05 Tr mg/dL (Negative) 03/17/19 16:05 Lg (Negative) 03/17/19 16:05 Neg (Negative) 03/17/19 16:05 Neg (Negative) 03/17/19 16:05 < 2.0 mg/dL (<2.0) 03/17/19 16:05 Ur Leukocyte Esterase Mod (Negative) 03/17/19 16:05 30.0 /HPF (0.0-6.0) H 03/17/19 16:05 11.0 /HPF (0.0-6.0) 03/17/19 16:05 U Epithel Cells (Auto) < 1.0 /HPF (0-13.0) 03/17/19 16:05 Few /HPF 03/17/19 16:05 2+ /HPF (DISABILITY INSURANCE CLAIM EXAMINER) 03/17/19 16:05 None seen (None Seen) 03/17/19 16:05 106.6 mg/dL (0.1-20.0) H 03/17/19 16:05 95 mmol/L 03/17/19 16:05 Vancomycin Trough 11.5 ug/mL (5.0-20.0) 03/18/19 13:19 Random Vancomycin 15.4 ug/mL (0-40.0) 03/24/19 04:50 Salicylates < 0.3 mg/dL (2.8-20.0) L 03/16/19 17:05 Presumptive negative 03/17/19 16:05 Presumptive negative 03/17/19 16:05 Acetaminophen < 5.0 ug/mL (10.0-30.0) L 03/16/19 17:05 Ur Barbiturates Screen Presumptive negative 03/17/19 16:05 Ur Phencyclidine Scrn Presumptive negative 03/17/19 16:05 Ur Amphetamines Screen Presumptive negative 03/17/19 16:05 U Benzodiazepines Scrn Presumptive positive 03/17/19 16:05 Presumptive negative 03/17/19 16:05 U Marijuana (THC) Screen Presumptive negative 03/17/19 16:05 Disclamer 03/17/19 16:05 Plasma/Serum Alcohol < 0.01 % (0-0.07) 03/16/19 17:05 Hepatitis A IgM Ab Non-reactive (NonReactive) 03/18/19 13:18 Hep Bs Antigen Non-reactive (Negative) 03/18/19 13:18 Hep B Core IgM Ab Non-reactive (NonReactive) 03/18/19 13:18 Non-reactive (NonReactive) 03/18/19 13:18 HIV 1&2 Antibody Rapid Non react (Non React) 03/17/19 11:52 Non react (Non React) 03/17/19 11:52 Influenza A (Rapid) Negative (Negative) 03/17/19 17:00 Influenza B (Rapid) Negative (Negative) 03/17/19 17:00 Group A Strep Rapid Negative (Negative) 03/17/19 17:00 Active Medications - Current Medications Current Medications: Generic Name Dose Route Start Last Admin Trade Name Freq PRN Reason Stop Dose Admin Acetaminophen 650 mg 03/16/19 22:22 03/17/19 18:49 Tylenol [place] 650 mg Q4H PRN Administration Fever >101 Albuterol/Ipratropium 1 ampul 03/19/19 20:00 03/24/19 11:43 Duoneb *Not For Prn Use* IH 1 ampul Q4HRT PAOLO Administration Lipase/Protease/Amylase 1 each 03/17/19 14:45 Pancreaze 10,500 Unit FEEDTUBE PRN PRN For Clogged Feeding Tube Dextrose 50 gm 03/19/19 18:39 D50w (25gm) Vial IV PRN PRN Hypoglycemia Famotidine 20 mg 03/20/19 10:00 03/24/19 10:21 Pepcid IV 20 mg DAILY PAOLO Administration Fentanyl 50 mcg 03/16/19 16:06 03/16/19 17:02 Sublimaze IV 50 mcg Q10MIN PRN Administration ANALGESIA Fentanyl 25 mcg 03/19/19 18:33 03/20/19 02:53 Sublimaze IV 25 mcg Q2H PRN Administration Pain, Moderate (4-6) Hydrocortisone Sodium Succinate 50 mg 03/24/19 14:00 Solu-Cortef IV 03/24/19 23:59 Q8HR PAOLO Hydrocortisone Sodium Succinate 50 mg 03/25/19 10:00 Solu-Cortef IV 03/25/19 22:01 Q12HR PAOLO Hydrocortisone Sodium Succinate 50 mg 03/26/19 10:00 Solu-Cortef IV 03/27/19 10:01 Q24HR PAOLO Hydrophilic Ointment 1 applic 03/16/19 15:50 Vaseline Lip Therapy TP Q2HR PRN Dry Lips Midazolam HCl 100 mg/ Sodium 100 mls @ 2 mls/hr 03/16/19 16:00 03/19/19 18:45 Chloride IV 0 mg/hr TITR PAOLO 0 mls/hr Titration Protocol 2 MG/HR Vasopressin 20 unit/ Sodium 101 mls @ 9.09 mls/hr 03/16/19 23:45 03/22/19 12:00 Chloride IV Infused TITR PAOLO Titration Protocol 0.03 UNITS/MIN Norepinephrine 8 mg/ Sodium 250 mls @ 3.75 mls/hr 03/17/19 02:00 03/24/19 12:38 Chloride IV 6 mcg/min TITR PAOLO 11.25 mls/hr Titration Protocol 2 MCG/MIN Phenylephrine HCl 100 mg/ 100 mls @ 3 mls/hr 03/17/19 02:30 03/19/19 18:48 Sodium Chloride IV Infused TITR PAOLO Titration Protocol 50 MCG/MIN Ceftriaxone Sodium 2 gm in 100 mls @ 200 mls/hr 03/17/19 12:00 03/24/19 10:21 Rocephin/Ns 2 Gm/100 Ml IV 200 mls/hr Q12HR PAOLO Administration Protocol Doxycycline Hyclate 100 mg/ 250 mls @ 250 mls/hr 03/17/19 12:00 03/24/19 10:21 Sodium Chloride IV 250 mls/hr Q12HR PAOLO Administration Protocol Dopamine HCl/Dextrose 800 mg in 250 mls @ 5.103 mls/hr 03/17/19 23:00 03/20/19 12:54 Intropin Drip 800 Mg/D5w 250 Ml IV 0 mcg/kg/min TITR PAOLO 0 mls/hr Titration Protocol 2 MCG/KG/MIN Amiodarone HCl 900 mg/ 500 mls @ 33.333 mls/hr 03/18/19 17:00 03/24/19 06:36 Dextrose IV 1 mg/min DIRECT PAOLO 33.333 mls/hr Administration Protocol 1 MG/MIN Propofol 1,000 mg in 100 mls @ 4.572 mls/hr 03/22/19 12:00 03/24/19 14:57 Diprivan 10 Mg/Ml IV 10 mcg/kg/min TITR PAOLO 9.144 mls/hr Titration Protocol 5 MCG/KG/MIN Sodium Chloride 100 mls @ 999 mls/hr 03/23/19 10:04 Nacl 0.9% IV NEYMAR PRN Hypotension Sodium Chloride 250 mls @ 999 mls/hr 03/24/19 16:00 Nacl 0.9% 250ml IV 03/24/19 16:15 ONCE ONE Metoclopramide HCl 5 mg 03/21/19 19:00 03/24/19 12:36 Reglan IV 5 mg Q6H PAOLO Administration Midazolam HCl 2 mg 03/16/19 15:50 03/20/19 14:23 Versed IV 2 mg Q10MIN PRN Administration Sedation Midodrine 10 mg 03/18/19 20:00 03/24/19 12:36 Proamatine PO 10 mg Q8H PAOLO Administration Multi-Ingred Cream/Lotion/Oil/Oint 1 applic 03/16/19 15:50 03/19/19 20:10 Artificial Tears Ophth Oint OU 1 applic Q4HR PRN Administration Dry Eye(s) Ondansetron HCl 4 mg 03/16/19 22:21 Zofran IV Q8H PRN Nausea And Vomiting Simple Syrup 15 ml 03/17/19 14:45 Simple Syrup FEEDTUBE PRN PRN Hypoglycemia Simple Syrup 30 ml 03/17/19 14:45 Simple Syrup FEEDTUBE PRN PRN Hypoglycemia Sodium Bicarbonate 325 mg 03/17/19 14:45 Sodium Bicarbonate FEEDTUBE PRN PRN For Clogged Feeding Tube Nutrition/Malnutrition Assess - Dietary Evaluation Nutrition/Malnutrition Findings: Nutrition Notes Start: 03/17/19 14:22 Freq: Status: Active Protocol: Document 03/22/19 13:12 LM (Rec: 03/22/19 13:18 LM [email or web address]) Nutrition Notes Initial or Follow up Reassessment Current Diagnosis Acute Kidney Injury Other Pertinent Diagnosis Septic shock,Multiple organ failure, encephalopathy, rhabdomyolysis Current Diet no diet ordered Labs/Tests Na 132 K 5.6 BUN 101 Cr 7.4 BG 124 Pertinent Medications Norepinephrine Vasopressin Propofol 4.572 ml/hr (121 kcal ) Height 6 ft Weight 152.4 kg [place] Body Weight (kg) 80.90 BMI 45.6 Subjective/Other Information Per RN TF still on hold due to pressors. Burn Absent Trauma Absent Minimum of two criteria No #1 Nutrition Diagnosis Inadequate oral intake Diagnosis Progress(for reassessment Continues documentation) Is patient on ventilator? Yes Is Patient Ambulatory and/or Out of Bed No REE-([place]-St. Jeor-confined to bed) 2938.896 Kcal/Kg value to use for calculation 15 Approximate Energy Requirements Using 2286 kcal/Kg Calculation Used for Recommendations Kcal/kg Additional Notes Protein Needs: 202g (2.5g/kg IBW 80.9) Fluid Needs: 1 ml/kcal or per MD Nutrition Intervention Change Diet Order: Recommend TF when medically feasible Nutrition Support: Nepro 1.8 at 55 ml/hr Flush 150 ml q4hr for hyponatremia Kcal 2,376 Protein (gm) 107 Fluid (mL) 960 Goal #1 Start TF when medically feasible Anticipated Discharge Needs: Unable to determine at this time Follow-Up By: 03/26/19 Additional Comments Follow for POC
[2019-03-24] MEDS ORDERED: SODIUM CHLORIDE 0.9% 250ML 250 ML IV ONE (16:00)
--- NOTE | 2019-03-24 16:05 | Progress Note ---
Assessment and Plan Cultures: 03/16/2019 sputum: salivary contamination 03/16/2019 Blood culture: no growth 03/17/2019 Urine culture no growth 03/17/2019 throat culture: no growth Assessment: 43/M with ?psych history: 1) Septic shock: much improved, down to 1 pressor. Remains on HD, intubated on the vent. Leukocytosis present, fever resolved. ?Infectious etiology v/s possibility of Neuroleptic Malignant Syndrome given psych history, high fever of 105F and extremely elevated CPK of >100K. Unclear if he was on any psych med. From ID standpoint, we will continue broad coverage for acute bacterial meningitis, tick borne illness, aspiration pneumonia. Blood culture negative so far. UA with mild pyuria. HIV rapid negative. Strep A rapid ag negative. No obvious infectious source identified yet. 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 He lives in a hotel in a [place] neighborhood in [place] and believes he has been intermittently homeless. He met his friend Gio, who brought him to [place]. Brother denies any history of drug abuse or alcohol abuse but reports history of mental disorder, he has never received treatment. His parent do not talk to him. He denies homosexual behavior but does not have clear why he is in so close contact with new friend Gio here in [place]. Brother does not know anything about his symptoms as he spoke with him last time 3 months ago. Leukocytosis worsening. 2) Probable aspiration pneumonia: Already completed adequate abx. 3) Acute respiratory failure: on the vent. 4) ?Right axillary edema: no abscess, US no collection seen 5) Acute encephalopathy: should r/o meningitis when able to. CT head showed diffuse cerebral edema ?artifact. But too unstable for LP at this time. Low suspicion for HSV meningoencephalitis given the degree of his initial shock and clinical status. Given nationwide acyclovir shortage and low suspicion, would not recommend IV Ganciclovir at this time. 6) Acute renal failure: renally dosing all abx, now on HD 7) Elevated LFTs/shock liver: also likely elevated from Rhabdomyolysis. Viral hepatitis panel negative. LFTs continue to improve. 8) Thrombocytopenia 9) Rhabdomyolysis: CK continues to improve 10) ?Enteritis: per CT ? no collection no perforation no obvious ischemic bowel. Gen. Surg following Recommendations: Femoral arterial line removed Remove femoral central line when feasible LP awaited, continue droplet isolation till meningitis is ruled out Low suspicion for HSV meningoencephalitis given the degree of his initial refractory shock and multi-organ dysfunction. Given nationwide acyclovir shortage and low suspicion, would not recommend IV Ganciclovir at this time weighing the risks of ganciclovir associated toxicities continue IV Ceftriaxone 2 gm IV q12 h continue IV doxycycline 100 mg IV q12 h continue vancomycin IV renally adjusted tickborne serologies pending prognosis guarded Will follow along. Katie Palmer MD [facility] ([facility]) M: [phone] O: [phone] F: [phone] Subjective Date of service: 03/24/19 Principal diagnosis: Septic Shock; Ac. hypoxemic resp failure; Renzo. PNA; Rhabdomyolysis; RUBEN Interval history: No change. Remains on vent, intubated, sedated. Objective - Exam Narrative Exam: Physical Exam: Constitutional: sedated, intubated Head, Ears, Nose: Normocephalic, atraumatic. External ears, nose normal Eyes: Conjunctivae/corneas clear. No icterus. No ptosis. Neck: Supple, no meningeal signs Oral: intubated Cardiovascular: S1, S2 normal. Respiratory: Good air entry, clear to auscultation bilaterally GI: Soft; bowel sounds hypoactive. No peritoneal signs Musculoskeletal: No pedal edema. Skin: No rash or abscess Hem/Lymphatic: No palpable cervical or supraclavicular nodes. No lymphangitis Psych: no agitation Neurological: sedated, intubated, on vent Lines: femoral TLC - Constitutional Vitals: Vital Signs Temp Pulse Resp BP Pulse Ox 36.6 F L 144 H 20 154/85 96 03/24/19 14:30 03/24/19 15:45 03/24/19 15:45 03/24/19 15:45 03/24/19 15:45 Temperature -Last 24 Hours Temperature 36.6 F Temperature 98.7 F Temperature 36.6 F Temperature 99.7 F Temperature 99.9 F Temperature 100.1 F Temperature 99.6 F Temperature 97.8 F Temperature 97.7 F - Labs CBC & Chem 7: 03/24/19 04:50 03/24/19 04:50 Labs: Abnormal lab results 03/23/19 03/24/19 03/24/19 Range/Units 17:47 00:00 04:50 WBC 35.0 H (4.5-11.0) K/mm3 Hgb 10.4 L (11.8-15.2) gm/dl Hct 32.4 L (35.5-45.6) % Plt Count 60 L (140-440) K/mm3 Seg Neuts % (Manual) 93.0 H (40.0-70.0) % Lymphocytes % (Manual) 5.0 L (13.4-35.0) % Nucleated RBC % 7.0 H (0.0-0.9) % Seg Neutrophils # Man 32.6 H (1.8-7.7) K/mm3 Sodium (137-145) mmol/L Potassium (3.6-5.0) mmol/L Chloride (98-107) mmol/L Carbon Dioxide (22-30) mmol/L BUN (9-20) mg/dL Creatinine (0.8-1.5) mg/dL Glucose (75-100) mg/dL POC Glucose 111 H 108 H (70-105) Calcium (8.4-10.2) mg/dL Total Creatine Kinase (55-170) units/L 03/24/19 03/24/19 03/24/19 Range/Units 04:50 05:06 12:55 WBC (4.5-11.0) K/mm3 Hgb (11.8-15.2) gm/dl Hct (35.5-45.6) % Plt Count (140-440) K/mm3 Seg Neuts % (Manual) (40.0-70.0) % Lymphocytes % (Manual) (13.4-35.0) % Nucleated RBC % (0.0-0.9) % Seg Neutrophils # Man (1.8-7.7) K/mm3 Sodium 134 L (137-145) mmol/L Potassium 5.1 H (3.6-5.0) mmol/L Chloride 95.3 L (98-107) mmol/L Carbon Dioxide 21 L (22-30) mmol/L BUN 85 H (9-20) mg/dL Creatinine 6.4 H (0.8-1.5) mg/dL Glucose 109 H (75-100) mg/dL POC Glucose 112 H 110 H (70-105) Calcium 5.8 L* (8.4-10.2) mg/dL Total Creatine Kinase 5747 H (55-170) units/L
[2019-03-24] MEDS: fentaNYL 100 MCG/2 ML INJ IV PRN (20:08)
[2019-03-24] MEDS ORDERED: SODIUM CHLORIDE*PRIMING MACHINE ONLY FOR DIALYSIS MC ONE (21:28)
[2019-03-25] MEDS: PROPOFOL 1,000 MG/100 ML BOTTLE IV SCH ×8 (01:39→23:28)
[2019-03-25] MEDS: IPRATROPIUM/ALBUTEROL SULFATE 3 ML AMPUL.NEB IH SCH ×6 (01:48→20:43)
--- NOTE | 2019-03-25 02:59 | XRay Report ---
CHEST 1 VIEW 03/25/2019 2:16 AM INDICATION / CLINICAL INFORMATION: respiratory failure. COMPARISON: 03/23/19 FINDINGS: SUPPORT DEVICES: Stable, satisfactory device positioning. HEART / MEDIASTINUM: Stable. LUNGS / PLEURA: Interval improvement in bibasilar pulmonary opacities. No pneumothorax. ADDITIONAL FINDINGS: No significant additional findings. IMPRESSION: 1. Interval improvement in bilateral pulmonary opacities. Signer Name: Braeden Nina MD Signed: 03/25/2019 2:55 AM Workstation Name: [id number]
[2019-03-25] MEDS: ACETAMINOPHEN 650 MG RECT SUPP PR PRN (03:56)
[2019-03-25 05:44] LABS: Hematocrit 31.2 % (35.5-45.6); Hemoglobin 10.2 gm/dl (11.8-15.2); Mean Corpuscular HGB Conc 33 % (32-34); Mean Corpuscular Volume 86 fl (84-94); Red Blood Count 3.61 M/mm3 (3.65-5.03); Red Cell Distribution Width 14.8 % (13.2-15.2)
[2019-03-25 05:45] LABS: Platelet Count 57 K/mm3 (140-440)
[2019-03-25 06:02] LABS: Albumin 2.4 g/dL (3.9-5)
[2019-03-25 06:12] LABS: Calcium 5.5 mg/dL (8.4-10.2)
[2019-03-25 06:18] LABS: Basophils % (Manual) 0 % (0.0-1.8); Eosinophils % (Manual) 0 % (0.0-4.3); RBC Morphology Normal; Total Cells Counted 100
[2019-03-25 06:43] LABS: ABG Base Excess -4.4 mmol/L (-2.0-3.0); ABG HCO3 18.8 mmol/L (20.0-26.0); ABG Methemoglobin 0.6 % (0.0-1.5); ABG Oxygen Saturation 98.1 % (95.0-99.0); ABG PCO2 28.3 mm Hg; ABG PH 7.44 pH Units (7.350-7.450); ABG PO2 109.5 mm Hg (80.0-90.0)
[2019-03-25] MEDS ORDERED: CALCIUM GLUCONATE 2,000 MG in SODIUM CHLORIDE 0.9% 100 ML IV ONE (08:30)
[2019-03-25] MEDS ORDERED: SODIUM CHLORIDE 0.9% 1000 ML 1,000 ML ONE (09:01)
[2019-03-25] MEDS: HYDROCORTISONE SOD SUCC 100 MG/2 ML VIAL IV SCH ×2 (09:09→22:00)
[2019-03-25] MEDS: FAMOTIDINE 20 MG/2 ML INJ IV SCH (09:09)
[2019-03-25] MEDS: cefTRIAXone/NS 2 GM/100 ML 2 GM/100 ML BAG IV SCH ×2 (09:09→22:01)
[2019-03-25] MEDS: METOCLOPRAMIDE 10 MG/2 ML INJ IV SCH ×2 (09:10→09:13)
[2019-03-25] MEDS: MIDODRINE 5 MG TAB PO SCH ×3 (09:13→23:33)
[2019-03-25] MEDS: DOXYCYCLINE HYCLATE 100 MG in SODIUM CHLORIDE 0.9% 250ML 250 ML IV SCH ×2 (10:00→22:03)
--- NOTE | 2019-03-25 11:47 | Progress Note ---
Assessment and Plan Assessment and plan: Patient is a 43 year old male with PMH of GERD, Obesity, and per family has been homeless on the streets in [place] admitted to our facility following arrival via private vehicle with AMS x 2 Days per friend. On arrival was intubated in the ED noted to have rectal temp of 105 AND SVT with rate in the 250 requiring 2 shocks delivery * Initial rhythm appeared to be SVT * Per friend patient complaining of feeling ill and has some left eye discharge, cold, clammy and diaphoretic by the time arrived to the hospital. Also mentions a possibility of a right axilla abscess. The and went to stay with his girlfriend the last 2 days and this morning when he saw the patient he was ill-appearing but sleeping. * Patient was on 4 pressors, currently off pressers * Start on Elizabeth culture including coverage for possible Meningitis CHEST 1 VIEW . IMPRESSION: 1. Endotracheal tube in good position. 2. Nasogastric tube doubled back on itself at the level of the [place] with the tip not seen. The tube repositioned. CT of the chest, abdomen and pelvis without contrast . IMPRESSION: 1. Par enchymal disease in both lower lobes posteromedially may be related to aspiration pneumonia. 2. Moderately dilated small bowel bowel loops in the mid to upper abdomen anteriorly with mild associated bowel wall thickening. Localized enteritis and small bowel ischemia should be considered. CT head/brain wo contrast. IMPRESSION: 1. Some component of diffuse cerebral edema cannot be excluded. However, this finding may be artifactual secondary to patient positioning. Close follow-up is recommended. No definitive signs of herniation or large territorial infarct at this time. 2. Otherwise, no focal mass, hemorrhage, hydrocephalus, or large infarct seen. Multi-Organ failure Septic Shock Severe Sepsis Acute Metabolic Encephalopathy Acute Respiratory Failure with Hypoxia Presume ARDS SVT with Polymorphic Vtach Rhabdomyolysis Severe Metabolic Acidosis Acute Cystitis Acute Kidney Failure secondary to ATN ANURIC Thrombocytopenia, Presume DIC Shock Liver Hypomagnesemia, Suspect Aspiration pneumonia Right Axillary cellulitis Enteritis Hypoglycemia-IMPROVED NMS; was considered and mental health consulted recommended supportive care because of the critical nature of the condition. Plan: Continue supportive care Neurology consult; appreciated EEG; generalized slowing, no epilpetiform focus Dialysis was done; nephrology is following Specialist impressions noted and appreciated Patient is currently off pressors, blood pressure is holding Continue bicarb drip Holding further fluids due to poor urine output, Aspiration Precautions and VAP bundle Echo reviewed and noted Ultrasound to further evaluate right axilla to r/o abscess vs LAD Monitor Blood glucose prevent hypoglycemia UDS noted, only shows benzos, ?from here or outside. per family no hx of drugs CK is still very high, but trending down Patients BP is better DVT/GI prophy Poor prognosis Discussed with his brother on the phone. Advanced care planning, family opting against DNR, wants all done. Will like a call if patient codes as they may opt for limited code The high probability of a clinically significant, sudden or life threatening deterioration of the [multiple organs] system(s) required my full and direct attention, intervention and personal management. The aggregate critical care time was [45] minutes. This time is in addition to time spent performing reported procedures but includes the following: [x] Data Review and interpretation [x] Patient assessment and monitoring of vital signs [x] Documentation [x] Medication orders and management History Interval history: Patient was seen and evaluated this morning patient was intubated and on mechanical ventilation. Discussed the management plan with patient's nurse. patient is off pressers. Hospitalist Physical - Physical exam Narrative exam: Patient is intubated and on mechanical ventilation. The patient is morbidly obese. Vital signs as documented. Head exam is unremarkable. No scleral icterus . Neck is without jugular venous distension, thyromegaly, or carotid bruits. Lungs are clear to auscultation. Cardiac exam reveals regular rate and Rhythm. Abdominal exam reveals normal bowel sounds. Extremities are nonedematous and both femoral and pedal pulses are normal. SUPERVISOR BONDING: sedated. - Constitutional Vitals: Temp Pulse Resp BP Pulse Ox 99.0 F 88 25 H 153/86 99 03/25/19 08:00 03/25/19 10:15 03/25/19 10:15 03/25/19 10:15 03/25/19 10:15 General appearance: Present: severe distress, obese Results - Labs CBC & Chem 7: 03/25/19 05:00 03/25/19 05:00 Labs: Laboratory Last Values WBC 23.3 K/mm3 (4.5-11.0) H 03/25/19 05:00 RBC 3.61 M/mm3 (3.65-5.03) L 03/25/19 05:00 Hgb 10.2 gm/dl (11.8-15.2) L 03/25/19 05:00 Hct 31.2 % (35.5-45.6) L 03/25/19 05:00 MCV 86 fl (84-94) 03/25/19 05:00 MCH 28 pg (28-32) 03/25/19 05:00 MCHC 33 % (32-34) 03/25/19 05:00 RDW 14.8 % (13.2-15.2) 03/25/19 05:00 Plt Count 57 K/mm3 (140-440) L 03/25/19 05:00 [place] % (Auto) 1.6 % (0.0-7.3) 03/21/19 04:26 [place] # 0.6 K/mm3 (0.0-0.8) 03/21/19 04:26 Add Manual Diff Complete 03/25/19 05:00 Total Counted 100 03/25/19 05:00 Seg Neutrophils % Correctional Nurse 03/25/19 05:00 Seg Neuts % (Manual) 92.0 % (40.0-70.0) H 03/25/19 05:00 0 % 03/25/19 05:00 6.0 % (13.4-35.0) L 03/25/19 05:00 Reactive Lymphs % (Man) 0 % 03/25/19 05:00 2.0 % (0.0-7.3) 03/25/19 05:00 0 % (0.0-4.3) 03/25/19 05:00 0 % (0.0-1.8) 03/25/19 05:00 0 % 03/25/19 05:00 0 % 03/25/19 05:00 0 % 03/25/19 05:00 0 % 03/25/19 05:00 Nucleated RBC % Not Reportable 03/25/19 05:00 Seg Neutrophils # 34.6 K/mm3 (1.8-7.7) H 03/21/19 04:26 Seg Neutrophils # Man 21.4 K/mm3 (1.8-7.7) H 03/25/19 05:00 Band Neutrophils # 0.0 K/mm3 03/25/19 05:00 1.4 K/mm3 (1.2-5.4) 03/25/19 05:00 Abs React Lymphs (Man) 0.0 K/mm3 03/25/19 05:00 0.5 K/mm3 (0.0-0.8) 03/25/19 05:00 0.0 K/mm3 (0.0-0.4) 03/25/19 05:00 0.0 K/mm3 (0.0-0.1) 03/25/19 05:00 0.0 K/mm3 03/25/19 05:00 0.0 K/mm3 03/25/19 05:00 0.0 K/mm3 03/25/19 05:00 Blast Cells # 0.0 K/mm3 03/25/19 05:00 WBC Morphology Not Reportable 03/25/19 05:00 Hypersegmented Neuts Not Reportable 03/25/19 05:00 Hyposegmented Neuts Not Reportable 03/25/19 05:00 Hypogranular Neuts Not Reportable 03/25/19 05:00 Not Reportable 03/25/19 05:00 Not Reportable 03/25/19 05:00 Not Reportable 03/25/19 05:00 Not Reportable 03/25/19 05:00 Not Reportable 03/25/19 05:00 Not Reportable 03/25/19 05:00 Not Reportable 03/25/19 05:00 Not Reportable 03/25/19 05:00 Plt Clumps, EDTA Not Reportable 03/25/19 05:00 Not Reportable 03/25/19 05:00 Not Reportable 03/25/19 05:00 Not Reportable 03/25/19 05:00 Plt Morphology Comment Not Reportable 03/25/19 05:00 RBC Morphology Normal 03/25/19 05:00 Dimorphic RBCs Not Reportable 03/25/19 05:00 Not Reportable 03/25/19 05:00 Not Reportable 03/25/19 05:00 Not Reportable 03/25/19 05:00 Not Reportable 03/25/19 05:00 Not Reportable 03/25/19 05:00 Not Reportable 03/25/19 05:00 Not Reportable 03/25/19 05:00 Not Reportable 03/25/19 05:00 Not Reportable 03/25/19 05:00 Not Reportable 03/25/19 05:00 Not Reportable 03/25/19 05:00 Not Reportable 03/25/19 05:00 Few 03/22/19 20:37 Not Reportable 03/25/19 05:00 Not Reportable 03/25/19 05:00 Not Reportable 03/25/19 05:00 Not Reportable 03/25/19 05:00 Not Reportable 03/25/19 05:00 Not Reportable 03/25/19 05:00 Not Reportable 03/25/19 05:00 Acanthocytes (Spur) Not Reportable 03/25/19 05:00 Rouleaux Not Reportable 03/25/19 05:00 Not Reportable 03/25/19 05:00 Not Reportable 03/25/19 05:00 Not Reportable 03/25/19 05:00 Not Reportable 03/25/19 05:00 Hem Pathologist Commnt No 03/25/19 05:00 PT 15.9 Sec. (12.2-14.9) H 03/16/19 17:05 INR 1.30 (0.87-1.13) H 03/16/19 17:05 APTT 31.7 Sec. (24.2-36.6) 03/16/19 17:05 POC ABG pH 7.373 (7.35-7.45) 03/24/19 05:09 ABG pH 7.440 pH Units (7.350-7.450) 03/25/19 06:30 POC ABG pCO2 37.9 (35-45) 03/24/19 05:09 ABG pCO2 28.3 mm Hg 03/25/19 06:30 POC ABG pO2 85 (80-105) 03/24/19 05:09 ABG pO2 109.5 mm Hg (80.0-90.0) H 03/25/19 06:30 POC ABG HCO3 22.0 (22-26 mml/L) 03/24/19 05:09 ABG HCO3 18.8 mmol/L (20.0-26.0) L 03/25/19 06:30 POC ABG Total CO2 23 (23-27mmol/L) 03/24/19 05:09 POC ABG O2 Sat 96 03/24/19 05:09 ABG O2 Saturation 98.1 % (95.0-99.0) 03/25/19 06:30 ABG O2 Content 13.8 (0.0-44) 03/25/19 06:30 POC ABG Base Excess -3 ((-2) - (+3)mmol/L) 03/24/19 05:09 ABG Base Excess -4.4 mmol/L (-2.0-3.0) L 03/25/19 06:30 ABG Hemoglobin 10.1 gm/dl (14.0-18.0) L 03/25/19 06:30 ABG Carboxyhemoglobin 1.6 % (0.0-5.0) 03/25/19 06: ABG Methemoglobin 0.6 % (0.0-1.5) 03/25/19 06:30 96.0 % (95.0-99.0) 03/25/19 06:30 40 % 03/25/19 06:30 Sodium 133 mmol/L (137-145) L 03/25/19 05:00 Potassium 4.3 mmol/L (3.6-5.0) 03/25/19 05:00 Chloride 94.0 mmol/L (98-107) L 03/25/19 05:00 Carbon Dioxide 21 mmol/L (22-30) L 03/25/19 05:00 22 mmol/L 03/25/19 05:00 BUN 81 mg/dL (9-20) H 03/25/19 05:00 6.4 mg/dL (0.8-1.5) H 03/25/19 05:00 Estimated GFR 11 ml/min 03/25/19 05:00 13 % 03/25/19 05:00 Glucose 99 mg/dL (75-100) 03/25/19 05:00 POC Glucose 79 (70-105) 03/25/19 08:21 Lactic Acid 1.90 mmol/L (0.7-2.0) 03/21/19 21:31 Calcium 5.5 mg/dL (8.4-10.2) L* 03/25/19 05:00 Phosphorus 7.30 mg/dL (2.5-4.5) H 03/17/19 03:45 Magnesium 2.40 mg/dL (1.7-2.3) H 03/18/19 08:40 1.20 mg/dL (0.1-1.2) 03/25/19 05:00 5.9 mg/dL (0-0.2) H 03/16/19 17:05 0.3 mg/dL 03/16/19 17:05 AST 80 units/L (5-40) H 03/25/19 05:00 ALT 48 units/L (7-56) 03/25/19 05:00 202 units/L (35-129) H 03/25/19 05:00 3589 units/L (55-170) H 03/25/19 05:00 CK-MB (CK-2) 54.3 ng/mL (0.0-4.0) H 03/17/19 07:16 CK-MB (CK-2) Rel Index 0.0 (0-4) 03/17/19 07:16 0.058 ng/mL (0.00-0.029) H 03/17/19 07:16 13.30 mg/dL (0.00-1.30) H 03/20/19 14:45 5.3 g/dL (6.3-8.2) L 03/25/19 05:00 2.4 g/dL (3.9-5) L 03/25/19 05:00 0.8 % 03/25/19 05:00 Triglycerides 395 mg/dL (2-149) H 03/16/19 22:32 Cholesterol 88 mg/dL (50-199) 03/16/19 22:32 10 mg/dL (50-130) L 03/16/19 22:32 7 mg/dL (40-59) L 03/16/19 22:32 12.57 % 03/16/19 22:32 TSH 2.200 mlU/mL (0.270-4.200) 03/16/19 17:05 Free T4 0.72 ng/dL (0.76-1.46) L 03/16/19 17:05 PTH Intact 329.9 pg/mL (15-65) H 03/25/19 05:00 Kathy (Yellow) 03/17/19 16:05 Cloudy (Clear) 03/17/19 16:05 5.0 (5.0-7.0) 03/17/19 16:05 Ur Specific [place] 1.014 (1.003-1.030) 03/17/19 16:05 >500 mg/dL (Negative) 03/17/19 16:05 50 mg/dL (Negative) 03/17/19 16:05 Tr mg/dL (Negative) 03/17/19 16:05 Lg (Negative) 03/17/19 16:05 Neg (Negative) 03/17/19 16:05 Neg (Negative) 03/17/19 16:05 < 2.0 mg/dL (<2.0) 03/17/19 16:05 Ur Leukocyte Esterase Mod (Negative) 03/17/19 16:05 30.0 /HPF (0.0-6.0) H 03/17/19 16:05 11.0 /HPF (0.0-6.0) 03/17/19 16:05 U Epithel Cells (Auto) < 1.0 /HPF (0-13.0) 03/17/19 16:05 Few /HPF 03/17/19 16:05 2+ /HPF (MANAGER GRAPHIC) 03/17/19 16:05 None seen (None Seen) 03/17/19 16:05 106.6 mg/dL (0.1-20.0) H 03/17/19 16:05 95 mmol/L 03/17/19 16:05 Vancomycin Trough 11.5 ug/mL (5.0-20.0) 03/18/19 13:19 Random Vancomycin 15.4 ug/mL (0-40.0) 03/24/19 04:50 Salicylates < 0.3 mg/dL (2.8-20.0) L 03/16/19 17:05 Presumptive negative 03/17/19 16:05 Presumptive negative 03/17/19 16:05 Acetaminophen < 5.0 ug/mL (10.0-30.0) L 03/16/19 17:05 Ur Barbiturates Screen Presumptive negative 03/17/19 16:05 Ur Phencyclidine Scrn Presumptive negative 03/17/19 16:05 Ur Amphetamines Screen Presumptive negative 03/17/19 16:05 U Benzodiazepines Scrn Presumptive positive 03/17/19 16:05 Presumptive negative 03/17/19 16:05 U Marijuana (THC) Screen Presumptive negative 03/17/19 16:05 Disclamer 03/17/19 16:05 Plasma/Serum Alcohol < 0.01 % (0-0.07) 03/16/19 17:05 Hepatitis A IgM Ab Non-reactive (NonReactive) 03/18/19 13:18 Hep Bs Antigen Non-reactive (Negative) 03/18/19 13:18 Hep B Core IgM Ab Non-reactive (NonReactive) 03/18/19 13:18 Non-reactive (NonReactive) 03/18/19 13:18 HIV 1&2 Antibody Rapid Non react (Non React) 03/17/19 11:52 Non react (Non React) 03/17/19 11:52 Influenza A (Rapid) Negative (Negative) 03/17/19 17:00 Influenza B (Rapid) Negative (Negative) 03/17/19 17:00 Group A Strep Rapid Negative (Negative) 03/17/19 17:00 Active Medications - Current Medications Current Medications: Generic Name Dose Route Start Last Admin Trade Name Freq PRN Reason Stop Dose Admin Acetaminophen 650 mg 03/16/19 22:22 03/25/19 03:56 Tylenol MO 650 mg Q4H PRN Administration Fever >101 Albuterol/Ipratropium 1 ampul 03/19/19 20:00 03/25/19 08:32 Duoneb *Not For Prn Use* IH 1 ampul Q4HRT PAOLO Administration Lipase/Protease/Amylase 1 each 03/17/19 14:45 Pancreaze 10,500 Unit FEEDTUBE PRN PRN For Clogged Feeding Tube Dextrose 50 gm 03/19/19 18:39 D50w (25gm) Vial IV PRN PRN Hypoglycemia Ergocalciferol 50,000 unit 03/25/19 12:00 Vitamin D2 PO 03/27/19 10:01 DAILY PAOLO Famotidine 20 mg 03/20/19 10:00 03/25/19 09:09 Pepcid IV 20 mg DAILY PAOLO Administration Fentanyl 50 mcg 03/16/19 16:06 03/24/19 20:08 Sublimaze IV 50 mcg Q10MIN PRN Administration ANALGESIA Fentanyl 25 mcg 03/19/19 18:33 03/20/19 02:53 Sublimaze IV 25 mcg Q2H PRN Administration Pain, Moderate (4-6) Hydrocortisone Sodium Succinate 50 mg 03/25/19 10:00 03/25/19 09:09 Solu-Cortef IV 03/25/19 22:01 50 mg Q12HR PAOLO Administration Hydrocortisone Sodium Succinate 50 mg 03/26/19 10:00 Solu-Cortef IV 03/27/19 10:01 Q24HR PAOLO Hydrophilic Ointment 1 applic 03/16/19 15:50 Vaseline Lip Therapy TP Q2HR PRN Dry Lips Midazolam HCl 100 mg/ Sodium 100 mls @ 2 mls/hr 03/16/19 16:00 03/19/19 18:45 Chloride IV 0 mg/hr TITR PAOLO 0 mls/hr Titration Protocol 2 MG/HR Vasopressin 20 unit/ Sodium 101 mls @ 9.09 mls/hr 03/16/19 23:45 03/22/19 12:00 Chloride IV Infused TITR PAOLO Titration Protocol 0.03 UNITS/MIN Norepinephrine 8 mg/ Sodium 250 mls @ 3.75 mls/hr 03/17/19 02:00 03/24/19 16:16 Chloride IV 0 mcg/min TITR PAOLO 0 mls/hr Titration Protocol 2 MCG/MIN Phenylephrine HCl 100 mg/ 100 mls @ 3 mls/hr 03/17/19 02:30 03/19/19 18:48 Sodium Chloride IV Infused TITR PAOLO Titration Protocol 50 MCG/MIN Ceftriaxone Sodium 2 gm in 100 mls @ 200 mls/hr 03/17/19 12:00 03/25/19 09:09 Rocephin/Ns 2 Gm/100 Ml IV 200 mls/hr Q12HR PAOLO Administration Protocol Doxycycline Hyclate 100 mg/ 250 mls @ 250 mls/hr 03/17/19 12:00 03/24/19 21:29 Sodium Chloride IV 250 mls/hr Q12HR PAOLO Administration Protocol Dopamine HCl/Dextrose 800 mg in 250 mls @ 5.103 mls/hr 03/17/19 23:00 03/20/19 12:54 Intropin Drip 800 Mg/D5w 250 Ml IV 0 mcg/kg/min TITR PAOLO 0 mls/hr Titration Protocol 2 MCG/KG/MIN Amiodarone HCl 900 mg/ 500 mls @ 33.333 mls/hr 03/18/19 17:00 03/24/19 21:27 Dextrose IV 0.5 mg/min DIRECT PAOLO 16.667 mls/hr Administration Protocol 1 MG/MIN Propofol 1,000 mg in 100 mls @ 4.572 mls/hr 03/22/19 12:00 03/25/19 07:19 Diprivan 10 Mg/Ml IV 35 mcg/kg/min TITR PAOLO 32.004 mls/hr Administration Protocol 5 MCG/KG/MIN Sodium Chloride 100 mls @ 999 mls/hr 03/23/19 10:04 Nacl 0.9% IV NEYMAR PRN Hypotension Metoclopramide HCl 5 mg 03/21/19 19:00 03/25/19 09:13 Reglan IV Not Given Q6H PAOLO Midazolam HCl 2 mg 03/16/19 15:50 03/20/19 14:23 Versed IV 2 mg Q10MIN PRN Administration Sedation Midodrine 10 mg 03/18/19 20:00 03/25/19 09:13 Proamatine PO Not Given Q8H PAOLO Multi-Ingred Cream/Lotion/Oil/Oint 1 applic 03/16/19 15:50 03/19/19 20:10 Artificial Tears Ophth Oint OU 1 applic Q4HR PRN Administration Dry Eye(s) Ondansetron HCl 4 mg 03/16/19 22:21 Zofran IV Q8H PRN Nausea And Vomiting Simple Syrup 15 ml 03/17/19 14:45 Simple Syrup FEEDTUBE PRN PRN Hypoglycemia Simple Syrup 30 ml 03/17/19 14:45 Simple Syrup FEEDTUBE PRN PRN Hypoglycemia Sodium Bicarbonate 325 mg 03/17/19 14:45 Sodium Bicarbonate FEEDTUBE PRN PRN For Clogged Feeding Tube Nutrition/Malnutrition Assess - Dietary Evaluation Nutrition/Malnutrition Findings: Nutrition Notes Start: 03/17/19 14:22 Freq: Status: Active Protocol: Document 03/22/19 13:12 LM (Rec: 03/22/19 13:18 LM [email or web address]) Nutrition Notes Initial or Follow up Reassessment Current Diagnosis Acute Kidney Injury Other Pertinent Diagnosis Septic shock,Multiple organ failure, encephalopathy, rhabdomyolysis Current Diet no diet ordered Labs/Tests Na 132 K 5.6 BUN 101 Cr 7.4 BG 124 Pertinent Medications Norepinephrine Vasopressin Propofol 4.572 ml/hr (121 kcal ) Height 6 ft Weight 152.4 kg [place]oa Body Weight (kg) 80.90 BMI 45.6 Subjective/Other Information Per RN TF still on hold due to pressors. Burn Absent Trauma Absent Minimum of two criteria No #1 Nutrition Diagnosis Inadequate oral intake Diagnosis Progress(for reassessment Continues documentation) Is patient on ventilator? Yes Is Patient Ambulatory and/or Out of Bed No [facility] 2938.896 Kcal/Kg value to use for calculation 15 Approximate Energy Requirements Using 2286 kcal/Kg Calculation Used for Recommendations Kcal/kg Additional Notes Protein Needs: 202g (2.5g/kg IBW 80.9) Fluid Needs: 1 ml/kcal or per MD Nutrition Intervention Change Diet Order: Recommend TF when medically feasible Nutrition Support: Nepro 1.8 at 55 ml/hr Flush 150 ml q4hr for hyponatremia Kcal 2,376 Protein (gm) 107 Fluid (mL) 960 Goal #1 Start TF when medically feasible Anticipated Discharge Needs: Unable to determine at this time Follow-Up By: 03/26/19 Additional Comments Follow for POC
[2019-03-25] MEDS: ERGOCALCIFEROL (VIT D2) 50,000 UNIT CAP PO SCH (12:00)
--- NOTE | 2019-03-25 12:56 | Event Note ---
Date: 03/25/19 Contacted nurse. She told me patient needs 2 central infusion lines for his current medications. [facility] only has 1 central infusion line (besides 2 ports for dialysis). Exchanging dialysis catheter for [facility] will not provide enough lines. We can evaluate the patient for jugular TLC catheter tomorrow. If it needs to be done earlier, recommend contacting the head of biology, anesthesia, or the ER.
--- NOTE | 2019-03-25 14:37 | Progress Note ---
Assessment and Plan Severe sepsis with shock. Right axilla abscess versus localized pannus/fatty collection. Acute hypoxemic respiratory failure, on mechanical ventilator support. Likely aspiration pneumonia, bilateral. Morbid obesity. Rhabdomyolysis. Acute kidney injury on HD. Leukocytosis-persistent Morbid obesity. Metabolic acidosis. Lactic acidosis. Hypomagnesemia. Elevated serum transaminases/possible shock liver. Acute encephalopathy, toxic metabolic( see Neurology consult notes) Thrombocytopenia- etiology, multifactorial- improving - keep on PRVC/AC , decrease PEEP to 6, ABG in the morning -Start SBTs in abbe morning. -CXR in the morning -wean FiO2 for O2 sats>92% -continue reglan , conitnue trophic feeding at 10 cc/hr, will advance if he continues to tolerate tomorrow -Add Seroquel 50mg qhs to help with agitation. Monitor QTc as he is on multiple medications that can prolong QT -Will discuss with IR to change HD catheter to trialysis catheter, and discontinue femoral CVC, especially in the setting of persistent leukocytosis He is off vasopressors at this time -Antibitoics and anti virals per ID -Can get the MRI tomorrow, will continue to hold off on spinal tap in view of persistent thrombocytopenia -Target sedation for RASS 0 to -1, continue propofol and intermittent fentanyl dosing, daily SAT - continue HD/UF per nephrology - VAP bundle addressed - continue daily SAT's and SBT assessment as tolerated - prn analgesia per CPOT score - prn supportive blood transfusions to keep HgB > 7.0 - Monitor hemodynamics closely - Transfuse PRBC's to keep HgB > 7g/dL - continue mobility protocols and off loading as tolerated for pressure ulcer prevention - continue to avoid nephrotoxins, adjust all medications for GFR and CRCL - continue GI & VTE prophylaxis ( SCDs and Famotidine) - accuchecks with glycemic control per SSI for target BG of 140-180 mg/dl acutely - continue steroid taper - continue other care per attending / other consultants ... spoke to his brother at length and updated him that the patient is critical but stable and is beginning to make progress CONDITION: CRITICAL PROGNOSIS: GUARDED CODE STATUS: FULL CODE Discussed extensively with RT/RN The high probability of a clinically significant, sudden or life threatening deterioration of the [respiratory, renal, neurologic and Cardiac] systems required my full and direct attention, intervention and personal management. The aggregate critical care time was 35 minutes. This time is in addition to time spent performing reported procedures but includes the following: [x] Data Review and interpretation [x] Patient assessment and monitoring of vital signs [x] Documentation [x] Medication orders and management Subjective Date of service: 03/25/19 Principal diagnosis: Septic Shock; Ac. hypoxemic resp failure; Renzo. PNA; Rhabdomyolysis; RUBEN Interval history: Patient is seen today for: Severe sepsis with shock; Acute hypoxemic respiratory failure; Aspiration pneumonia; Morbid obesity; Rhabdomyolysis; Acute kidney injury; Morbid obesity; Elevated serum transaminases/possible shock liver; Acute encephalopathy (Toxic/Met) Seen and examined at bedside; 24hour events reviewed; nursing and respiratory care staff consulted; no adverse overnight events reported to me; resting peacefully in bed;off vasopressors; remains critically ill on MVS; on propofol; s/p HD [id number] of fluid removed developed tachycardia post HD which responded well to normal saline bolus of 250cc; on amiodarone at 1mcg/hour infusion; Tolerating trophic feedings; Vitals, labs, medications, chart and imaging reviewed. On full MVS AC 25/500/8/40% ABG 7.44/28/109.5/18.8/-4.4 Objective Vital Signs - 12hr 03/25/19 03/25/19 03/25/19 02:45 03:01 03:15 Temperature Pulse Rate 151 H 158 H 138 H Pulse Rate [ Anterior Bilateral Throughout] Pulse Rate [ From Monitor] Respiratory 30 H 22 30 H Rate Respiratory Rate [Anterior Bilateral Throughout] Blood Pressure 152/101 151/100 151/100 O2 Sat by Pulse 98 98 98 Oximetry 03/25/19 03/25/19 03/25/19 03:31 03:45 04:00 Temperature 101.8 F H Pulse Rate 145 H 134 H 146 H Pulse Rate [ Anterior Bilateral Throughout] Pulse Rate [ 145 H From Monitor] Respiratory 21 24 25 H Rate Respiratory Rate [Anterior Bilateral Throughout] Blood Pressure 138/78 138/78 O2 Sat by Pulse 99 99 100 Oximetry 03/25/19 03/25/19 03/25/19 04:01 04:15 04:31 Temperature Pulse Rate 144 H 155 H 133 H Pulse Rate [ Anterior Bilateral Throughout] Pulse Rate [ From Monitor] Respiratory 27 H 26 H 29 H Rate Respiratory Rate [Anterior Bilateral Throughout] Blood Pressure 148/84 148/84 135/85 O2 Sat by Pulse 98 98 94 Oximetry 03/25/19 03/25/19 03/25/19 04:45 05:01 05:15 Temperature Pulse Rate 150 H 141 H 147 H Pulse Rate [ Anterior Bilateral Throughout] Pulse Rate [ From Monitor] Respiratory 25 H 26 H 21 Rate Respiratory Rate [Anterior Bilateral Throughout] Blood Pressure 135/85 148/88 148/88 O2 Sat by Pulse 97 97 99 Oximetry 03/25/19 03/25/19 03/25/19 05:31 05:45 06:00 Temperature Pulse Rate 129 H 134 H 88 Pulse Rate [ Anterior Bilateral Throughout] Pulse Rate [ From Monitor] Respiratory 23 20 20 Rate Respiratory Rate [Anterior Bilateral Throughout] Blood Pressure 140/81 140/81 145/85 O2 Sat by Pulse 99 99 99 Oximetry 03/25/19 03/25/19 03/25/19 06:15 06:23 06:30 Temperature Pulse Rate 88 89 89 Pulse Rate [ Anterior Bilateral Throughout] Pulse Rate [ From Monitor] Respiratory 18 20 Rate Respiratory Rate [Anterior Bilateral Throughout] Blood Pressure 151/85 151/85 150/82 O2 Sat by Pulse 100 99 99 Oximetry 03/25/19 03/25/19 03/25/19 06:45 07:01 07:15 Temperature Pulse Rate 90 90 90 Pulse Rate [ Anterior Bilateral Throughout] Pulse Rate [ From Monitor] Respiratory 22 25 H 25 H Rate Respiratory Rate [Anterior Bilateral Throughout] Blood Pressure 147/83 157/80 151/86 O2 Sat by Pulse 99 99 99 Oximetry 03/25/19 03/25/19 03/25/19 07:30 07:45 08:00 Temperature 99.0 F Pulse Rate 90 90 94 H Pulse Rate [ Anterior Bilateral Throughout] Pulse Rate [ 89 From Monitor] Respiratory 20 25 H 25 H Rate Respiratory Rate [Anterior Bilateral Throughout] Blood Pressure 161/89 149/86 144/84 O2 Sat by Pulse 99 99 99 Oximetry 03/25/19 03/25/19 03/25/19 08:15 08:29 08:30 Temperature Pulse Rate 89 89 88 Pulse Rate [ Anterior Bilateral Throughout] Pulse Rate [ From Monitor] Respiratory 24 26 H Rate Respiratory Rate [Anterior Bilateral Throughout] Blood Pressure 147/79 154/86 154/86 O2 Sat by Pulse 99 100 100 Oximetry 03/25/19 03/25/19 03/25/19 08:33 08:45 09:00 Temperature Pulse Rate 90 90 Pulse Rate [ 89 Anterior Bilateral Throughout] Pulse Rate [ From Monitor] Respiratory 21 26 H Rate Respiratory 26 H Rate [Anterior Bilateral Throughout] Blood Pressure 154/81 142/84 O2 Sat by Pulse 100 99 Oximetry 03/25/19 03/25/19 03/25/19 09:15 09:30 09:45 Temperature Pulse Rate 89 89 88 Pulse Rate [ Anterior Bilateral Throughout] Pulse Rate [ From Monitor] Respiratory 26 H 25 H 22 Rate Respiratory Rate [Anterior Bilateral Throughout] Blood Pressure 141/81 141/80 144/80 O2 Sat by Pulse 99 99 99 Oximetry 03/25/19 03/25/19 03/25/19 10:00 10:15 10:30 Temperature Pulse Rate 88 88 88 Pulse Rate [ Anterior Bilateral Throughout] Pulse Rate [ From Monitor] Respiratory 22 25 H 25 H Rate Respiratory Rate [Anterior Bilateral Throughout] Blood Pressure 145/82 153/86 152/85 O2 Sat by Pulse 100 99 99 Oximetry 03/25/19 03/25/19 03/25/19 10:45 11:00 11:15 Temperature Pulse Rate 88 88 89 Pulse Rate [ Anterior Bilateral Throughout] Pulse Rate [ From Monitor] Respiratory 26 H 24 26 H Rate Respiratory Rate [Anterior Bilateral Throughout] Blood Pressure 152/85 154/88 159/90 O2 Sat by Pulse 98 99 99 Oximetry 03/25/19 03/25/19 03/25/19 11:30 11:45 11:46 Temperature Pulse Rate 133 H 128 H 137 H Pulse Rate [ Anterior Bilateral Throughout] Pulse Rate [ From Monitor] Respiratory 25 H 19 Rate Respiratory Rate [Anterior Bilateral Throughout] Blood Pressure 155/93 155/93 154/93 O2 Sat by Pulse 98 95 96 Oximetry 03/25/19 03/25/19 03/25/19 12:00 12:01 12:15 Temperature 100.6 F H Pulse Rate 91 H 142 H 93 H Pulse Rate [ Anterior Bilateral Throughout] Pulse Rate [ 90 From Monitor] Respiratory 27 H 32 H 27 H Rate Respiratory Rate [Anterior Bilateral Throughout] Blood Pressure 154/93 163/93 O2 Sat by Pulse 98 95 96 Oximetry 03/25/19 03/25/19 03/25/19 12:31 12:45 13:01 Temperature Pulse Rate 91 H 91 H 91 H Pulse Rate [ Anterior Bilateral Throughout] Pulse Rate [ From Monitor] Respiratory 27 H 26 H 26 H Rate Respiratory Rate [Anterior Bilateral Throughout] Blood Pressure 160/87 160/87 155/81 O2 Sat by Pulse 96 97 98 Oximetry 03/25/19 03/25/19 03/25/19 13:15 13:31 14:27 Temperature Pulse Rate 90 91 H 88 Pulse Rate [ Anterior Bilateral Throughout] Pulse Rate [ From Monitor] Respiratory 28 H 28 H Rate Respiratory Rate [Anterior Bilateral Throughout] Blood Pressure 155/81 154/86 O2 Sat by Pulse 99 98 99 Oximetry Constitutional: no acute distress, other (middle aged morbidly obese CM, normocephalic with incresed respiratory effort on MVS) Eyes: icteric ENT: oropharynx moist, other (ETT 23-24 cm PEDRO, ulcers over his upper lip) Neck: supple, no lymphadenopathy, no JVD, other (large neck circumference) Effort: mildly labored Ascultation: Bilateral: diminished breath sounds, rales Percussion: Bilateral: not dull Cardiovascular: irregular rhythm, other ( S1,S2) Gastrointestinal: hypoactive bowel sounds, soft, non-tender, non-distended, other (obese) Integumentary: normal, other (blisters with some weeping over the extremities) Extremities: no cyanosis, pink and warm, pulses normal, no ischemia or petechiae Neurologic: pupils equal and round, other (obeys simple commands when SAT was done) Psychiatric: other (inable to assess) CBC and BMP: 03/25/19 05:00 03/25/19 05:00 ABG, PT/INR, D-dimer: ABG POC ABG pH 7.373 (7.35-7.45) 03/24/19 05:09 ABG pH 7.440 pH Units (7.350-7.450) 03/25/19 06:30 POC ABG pCO2 37.9 (35-45) 03/24/19 05:09 ABG pCO2 28.3 mm Hg 03/25/19 06:30 POC ABG pO2 85 (80-105) 03/24/19 05:09 ABG pO2 109.5 mm Hg (80.0-90.0) H 03/25/19 06:30 POC ABG HCO3 22.0 (22-26 mml/L) 03/24/19 05:09 POC ABG Total CO2 23 (23-27mmol/L) 03/24/19 05:09 POC ABG O2 Sat 96 03/24/19 05:09 ABG O2 Saturation 98.1 % (95.0-99.0) 03/25/19 06:30 PT/INR, D-dimer PT 15.9 Sec. (12.2-14.9) H 03/16/19 17:05 INR 1.30 (0.87-1.13) H 03/16/19 17:05 Abnormal lab findings: Abnormal Labs 03/16/19 03/16/19 03/16/19 15:32 16:03 16:05 WBC 27.0 H RBC 5.55 H Hgb 15.7 H Hct 47.1 H RDW Plt Count 75 L Seg Neuts % (Manual) 85.0 H Lymphocytes % (Manual) 2.0 L Monocytes % (Manual) Nucleated RBC % Seg Neutrophils # Seg Neutrophils # Man 23.0 H Lymphocytes # (Manual) 0.5 L Monocytes # (Manual) PT INR POC ABG pH ABG pH POC ABG pCO2 POC ABG pO2 ABG pO2 ABG HCO3 ABG O2 Saturation ABG Base Excess ABG Hemoglobin Oxyhemoglobin Sodium 127 L Potassium Chloride 87.8 L Carbon Dioxide 17 L BUN 49 H Creatinine 5.8 H Glucose 150 H POC Glucose 118 H Lactic Acid Calcium 6.6 L Phosphorus Magnesium 1.10 L Total Bilirubin Direct Bilirubin AST ALT Alkaline Phosphatase Total Creatine Kinase 65296 H CK-MB (CK-2) Troponin T C-Reactive Protein Total Protein Albumin Triglycerides LDL Cholesterol Direct HDL Cholesterol Free T4 PTH Intact Urine WBC (Auto) Urine Creatinine Salicylates Acetaminophen 03/16/19 03/16/19 03/16/19 16:59 17:05 17:05 WBC RBC Hgb Hct RDW Plt Count Seg Neuts % (Manual) Lymphocytes % (Manual) Monocytes % (Manual) Nucleated RBC % Seg Neutrophils # Seg Neutrophils # Man Lymphocytes # (Manual) Monocytes # (Manual) PT INR POC ABG pH 7.297 L ABG pH POC ABG pCO2 33.0 L POC ABG pO2 ABG pO2 ABG HCO3 ABG O2 Saturation ABG Base Excess ABG Hemoglobin Oxyhemoglobin Sodium Potassium Chloride Carbon Dioxide BUN Creatinine Glucose POC Glucose Lactic Acid Calcium Phosphorus Magnesium Total Bilirubin Direct Bilirubin AST ALT Alkaline Phosphatase Total Creatine Kinase 29974 H CK-MB (CK-2) 83.1 H Troponin T C-Reactive Protein Total Protein Albumin Triglycerides LDL Cholesterol Direct HDL Cholesterol Free T4 0.72 L PTH Intact Urine WBC (Auto) Urine Creatinine Salicylates Acetaminophen 03/16/19 03/16/19 03/16/19 17:05 17:05 17:05 WBC RBC Hgb Hct RDW Plt Count Seg Neuts % (Manual) Lymphocytes % (Manual) Monocytes % (Manual) Nucleated RBC % Seg Neutrophils # Seg Neutrophils # Man Lymphocytes # (Manual) Monocytes # (Manual) PT INR POC ABG pH ABG pH POC ABG pCO2 POC ABG pO2 ABG pO2 ABG HCO3 ABG O2 Saturation ABG Base Excess ABG Hemoglobin Oxyhemoglobin Sodium Potassium Chloride Carbon Dioxide BUN Creatinine Glucose POC Glucose Lactic Acid 5.10 H* Calcium Phosphorus Magnesium Total Bilirubin Direct Bilirubin AST ALT Alkaline Phosphatase Total Creatine Kinase CK-MB (CK-2) Troponin T C-Reactive Protein Total Protein Albumin Triglycerides LDL Cholesterol Direct HDL Cholesterol Free T4 PTH Intact Urine WBC (Auto) Urine Creatinine Salicylates < 0.3 L Acetaminophen < 5.0 L 03/16/19 03/16/19 03/16/19 17:05 17:05 20:35 WBC RBC Hgb Hct RDW Plt Count Seg Neuts % (Manual) Lymphocytes % (Manual) Monocytes % (Manual) Nucleated RBC % Seg Neutrophils # Seg Neutrophils # Man Lymphocytes # (Manual) Monocytes # (Manual) PT 15.9 H INR 1.30 H POC ABG pH ABG pH POC ABG pCO2 POC ABG pO2 ABG pO2 ABG HCO3 ABG O2 Saturation ABG Base Excess ABG Hemoglobin Oxyhemoglobin Sodium Potassium Chloride Carbon Dioxide BUN Creatinine Glucose POC Glucose Lactic Acid 3.30 H* Calcium Phosphorus Magnesium Total Bilirubin 6.20 H Direct Bilirubin 5.9 H AST 800 H ALT 120 H Alkaline Phosphatase Total Creatine Kinase CK-MB (CK-2) Troponin T C-Reactive Protein Total Protein 4.4 L Albumin 2.4 L Triglycerides LDL Cholesterol Direct HDL Cholesterol Free T4 PTH Intact Urine WBC (Auto) Urine Creatinine Salicylates Acetaminophen 03/16/19 03/16/19 03/16/19 21:45 22:32 Unknown WBC RBC Hgb Hct RDW Plt Count Seg Neuts % (Manual) Lymphocytes % (Manual) Monocytes % (Manual) Nucleated RBC % Seg Neutrophils # Seg Neutrophils # Man Lymphocytes # (Manual) Monocytes # (Manual) PT INR POC ABG pH ABG pH POC ABG pCO2 POC ABG pO2 ABG pO2 ABG HCO3 ABG O2 Saturation ABG Base Excess ABG Hemoglobin Oxyhemoglobin Sodium Potassium Chloride Carbon Dioxide BUN Creatinine Glucose POC Glucose Lactic Acid 3.30 H* 3.00 H* Calcium Phosphorus Magnesium Total Bilirubin Direct Bilirubin AST ALT Alkaline Phosphatase Total Creatine Kinase CK-MB (CK-2) Troponin T 0.047 H D C-Reactive Protein Total Protein Albumin Triglycerides 395 H LDL Cholesterol Direct 10 L HDL Cholesterol 7 L Free T4 PTH Intact Urine WBC (Auto) Urine Creatinine Salicylates Acetaminophen 03/17/19 03/17/19 03/17/19 03:45 03:45 03:45 WBC RBC Hgb Hct RDW Plt Count Seg Neuts % (Manual) Lymphocytes % (Manual) Monocytes % (Manual) Nucleated RBC % Seg Neutrophils # Seg Neutrophils # Man Lymphocytes # (Manual) Monocytes # (Manual) PT INR POC ABG pH ABG pH POC ABG pCO2 POC ABG pO2 ABG pO2 ABG HCO3 ABG O2 Saturation ABG Base Excess ABG Hemoglobin Oxyhemoglobin Sodium 131 L Potassium Chloride 88.9 L Carbon Dioxide BUN 53 H Creatinine 7.1 H Glucose POC Glucose Lactic Acid 4.10 H* Calcium 5.4 L* D Phosphorus 7.30 H Magnesium 1.60 L Total Bilirubin 5.90 H Direct Bilirubin AST 801 H ALT 109 H Alkaline Phosphatase Total Creatine Kinase 55130 H 39471 H CK-MB (CK-2) 41.5 H Troponin T 0.054 H C-Reactive Protein Total Protein 4.5 L Albumin 2.0 L Triglycerides LDL Cholesterol Direct HDL Cholesterol Free T4 PTH Intact Urine WBC (Auto) Urine Creatinine Salicylates Acetaminophen 03/17/19 03/17/19 03/17/19 05:47 07:16 07:16 WBC RBC Hgb Hct RDW Plt Count Seg Neuts % (Manual) Lymphocytes % (Manual) Monocytes % (Manual) Nucleated RBC % Seg Neutrophils # Seg Neutrophils # Man Lymphocytes # (Manual) Monocytes # (Manual) PT INR POC ABG pH 7.193 L ABG pH POC ABG pCO2 45.2 H POC ABG pO2 65 L ABG pO2 ABG HCO3 ABG O2 Saturation ABG Base Excess ABG Hemoglobin Oxyhemoglobin Sodium Potassium Chloride Carbon Dioxide BUN Creatinine Glucose POC Glucose Lactic Acid 5.50 H* Calcium Phosphorus Magnesium Total Bilirubin Direct Bilirubin AST ALT Alkaline Phosphatase Total Creatine Kinase 49458 H CK-MB (CK-2) 54.3 H Troponin T 0.058 H C-Reactive Protein Total Protein Albumin Triglycerides LDL Cholesterol Direct HDL Cholesterol Free T4 PTH Intact Urine WBC (Auto) Urine Creatinine Salicylates Acetaminophen 03/17/19 03/17/19 03/17/19 11:52 12:51 13:01 WBC RBC Hgb Hct RDW Plt Count Seg Neuts % (Manual) Lymphocytes % (Manual) Monocytes % (Manual) Nucleated RBC % Seg Neutrophils # Seg Neutrophils # Man Lymphocytes # (Manual) Monocytes # (Manual) PT INR POC ABG pH 7.154 L ABG pH POC ABG pCO2 34.3 L POC ABG pO2 73 L ABG pO2 ABG HCO3 ABG O2 Saturation ABG Base Excess ABG Hemoglobin Oxyhemoglobin Sodium Potassium Chloride Carbon Dioxide BUN Creatinine Glucose POC Glucose 60 L Lactic Acid 8.20 H* Calcium Phosphorus Magnesium Total Bilirubin Direct Bilirubin AST ALT Alkaline Phosphatase Total Creatine Kinase CK-MB (CK-2) Troponin T C-Reactive Protein Total Protein Albumin Triglycerides LDL Cholesterol Direct HDL Cholesterol Free T4 PTH Intact Urine WBC (Auto) Urine Creatinine Salicylates Acetaminophen 03/17/19 03/17/19 03/17/19 14:37 14:37 14:37 WBC 29.3 H RBC Hgb Hct RDW 15.8 H Plt Count 45 L Seg Neuts % (Manual) 81.0 H Lymphocytes % (Manual) 1.0 L Monocytes % (Manual) 15.0 H Nucleated RBC % Seg Neutrophils # Seg Neutrophils # Man 23.7 H Lymphocytes # (Manual) 0.3 L Monocytes # (Manual) 4.4 H PT INR POC ABG pH ABG pH POC ABG pCO2 POC ABG pO2 ABG pO2 ABG HCO3 ABG O2 Saturation ABG Base Excess ABG Hemoglobin Oxyhemoglobin Sodium Potassium Chloride Carbon Dioxide BUN Creatinine Glucose POC Glucose Lactic Acid 4.90 H* Calcium Phosphorus Magnesium Total Bilirubin Direct Bilirubin AST ALT Alkaline Phosphatase Total Creatine Kinase CK-MB (CK-2) Troponin T C-Reactive Protein 24.90 H Total Protein Albumin Triglycerides LDL Cholesterol Direct HDL Cholesterol Free T4 PTH Intact Urine WBC (Auto) Urine Creatinine Salicylates Acetaminophen 03/17/19 03/17/19 03/17/19 16:05 16:05 17:02 WBC RBC Hgb Hct RDW Plt Count Seg Neuts % (Manual) Lymphocytes % (Manual) Monocytes % (Manual) Nucleated RBC % Seg Neutrophils # Seg Neutrophils # Man Lymphocytes # (Manual) Monocytes # (Manual) PT INR POC ABG pH 7.183 L ABG pH POC ABG pCO2 POC ABG pO2 65 L ABG pO2 ABG HCO3 ABG O2 Saturation ABG Base Excess ABG Hemoglobin Oxyhemoglobin Sodium Potassium Chloride Carbon Dioxide BUN Creatinine Glucose POC Glucose Lactic Acid Calcium Phosphorus Magnesium Total Bilirubin Direct Bilirubin AST ALT Alkaline Phosphatase Total Creatine Kinase CK-MB (CK-2) Troponin T C-Reactive Protein Total Protein Albumin Triglycerides LDL Cholesterol Direct HDL Cholesterol Free T4 PTH Intact Urine WBC (Auto) 30.0 H Urine Creatinine 106.6 H Salicylates Acetaminophen 03/18/19 03/18/19 03/18/19 05:12 05:16 05:53 WBC RBC Hgb Hct RDW Plt Count Seg Neuts % (Manual) Lymphocytes % (Manual) Monocytes % (Manual) Nucleated RBC % Seg Neutrophils # Seg Neutrophils # Man Lymphocytes # (Manual) Monocytes # (Manual) PT INR POC ABG pH 7.257 L ABG pH POC ABG pCO2 31.6 L POC ABG pO2 69 L ABG pO2 ABG HCO3 ABG O2 Saturation ABG Base Excess ABG Hemoglobin Oxyhemoglobin Sodium Potassium Chloride Carbon Dioxide BUN Creatinine Glucose POC Glucose 141 H Lactic Acid 5.00 H* Calcium Phosphorus Magnesium Total Bilirubin Direct Bilirubin AST ALT Alkaline Phosphatase Total Creatine Kinase CK-MB (CK-2) Troponin T C-Reactive Protein Total Protein Albumin Triglycerides LDL Cholesterol Direct HDL Cholesterol Free T4 PTH Intact Urine WBC (Auto) Urine Creatinine Salicylates Acetaminophen 03/18/19 03/18/19 03/18/19 06:57 08:40 08:40 WBC 31.7 H RBC Hgb Hct RDW 15.5 H Plt Count 35 L Seg Neuts % (Manual) Lymphocytes % (Manual) Monocytes % (Manual) Nucleated RBC % Seg Neutrophils # Seg Neutrophils # Man Lymphocytes # (Manual) Monocytes # (Manual) PT INR POC ABG pH ABG pH POC ABG pCO2 POC ABG pO2 ABG pO2 ABG HCO3 ABG O2 Saturation ABG Base Excess ABG Hemoglobin Oxyhemoglobin Sodium 132 L Potassium 5.5 H D Chloride 88.5 L Carbon Dioxide 18 L BUN 71 H Creatinine 8.1 H Glucose 205 H POC Glucose Lactic Acid 5.00 H* Calcium 4.1 L* D Phosphorus Magnesium 2.40 H Total Bilirubin 7.50 H Direct Bilirubin AST 1088 H ALT 159 H Alkaline Phosphatase 190 H Total Creatine Kinase 522495 H CK-MB (CK-2) Troponin T C-Reactive Protein Total Protein 4.7 L Albumin 1.8 L Triglycerides LDL Cholesterol Direct HDL Cholesterol Free T4 PTH Intact Urine WBC (Auto) Urine Creatinine Salicylates Acetaminophen 03/18/19 03/18/19 03/18/19 12:33 12:50 13:19 WBC RBC Hgb Hct RDW Plt Count Seg Neuts % (Manual) Lymphocytes % (Manual) Monocytes % (Manual) Nucleated RBC % Seg Neutrophils # Seg Neutrophils # Man Lymphocytes # (Manual) Monocytes # (Manual) PT INR POC ABG pH 7.282 L ABG pH POC ABG pCO2 POC ABG pO2 67 L ABG pO2 ABG HCO3 ABG O2 Saturation ABG Base Excess ABG Hemoglobin Oxyhemoglobin Sodium Potassium Chloride Carbon Dioxide BUN Creatinine Glucose POC Glucose 129 H Lactic Acid 3.30 H* Calcium Phosphorus Magnesium Total Bilirubin Direct Bilirubin AST ALT Alkaline Phosphatase Total Creatine Kinase CK-MB (CK-2) Troponin T C-Reactive Protein Total Protein Albumin Triglycerides LDL Cholesterol Direct HDL Cholesterol Free T4 PTH Intact Urine WBC (Auto) Urine Creatinine Salicylates Acetaminophen 03/18/19 03/18/19 03/18/19 13:19 16:50 18:11 WBC RBC Hgb Hct RDW Plt Count Seg Neuts % (Manual) Lymphocytes % (Manual) Monocytes % (Manual) Nucleated RBC % Seg Neutrophils # Seg Neutrophils # Man Lymphocytes # (Manual) Monocytes # (Manual) PT INR POC ABG pH ABG pH POC ABG pCO2 POC ABG pO2 59 L ABG pO2 ABG HCO3 ABG O2 Saturation ABG Base Excess ABG Hemoglobin Oxyhemoglobin Sodium Potassium Chloride Carbon Dioxide BUN Creatinine Glucose POC Glucose 151 H Lactic Acid Calcium 4.2 L* Phosphorus Magnesium Total Bilirubin Direct Bilirubin AST ALT Alkaline Phosphatase Total Creatine Kinase 194148 H CK-MB (CK-2) Troponin T C-Reactive Protein Total Protein Albumin Triglycerides LDL Cholesterol Direct HDL Cholesterol Free T4 PTH Intact Urine WBC (Auto) Urine Creatinine Salicylates Acetaminophen 03/18/19 03/18/19 03/19/19 18:20 23:39 01:42 WBC RBC Hgb Hct RDW Plt Count Seg Neuts % (Manual) Lymphocytes % (Manual) Monocytes % (Manual) Nucleated RBC % Seg Neutrophils # Seg Neutrophils # Man Lymphocytes # (Manual) Monocytes # (Manual) PT INR POC ABG pH 7.345 L ABG pH 7.285 L POC ABG pCO2 POC ABG pO2 59 L ABG pO2 44.0 L ABG HCO3 ABG O2 Saturation 70.9 L ABG Base Excess -5.7 L ABG Hemoglobin 11.9 L Oxyhemoglobin 69.6 L Sodium Potassium Chloride Carbon Dioxide BUN Creatinine Glucose POC Glucose 152 H Lactic Acid Calcium Phosphorus Magnesium Total Bilirubin Direct Bilirubin AST ALT Alkaline Phosphatase Total Creatine Kinase CK-MB (CK-2) Troponin T C-Reactive Protein Total Protein Albumin Triglycerides LDL Cholesterol Direct HDL Cholesterol Free T4 PTH Intact Urine WBC (Auto) Urine Creatinine Salicylates Acetaminophen 03/19/19 03/19/19 03/19/19 04:00 04:00 05:35 WBC 36.5 H RBC Hgb Hct RDW 15.8 H Plt Count 35 L Seg Neuts % (Manual) Lymphocytes % (Manual) Monocytes % (Manual) Nucleated RBC % Seg Neutrophils # Seg Neutrophils # Man Lymphocytes # (Manual) Monocytes # (Manual) PT INR POC ABG pH ABG pH 7.265 L POC ABG pCO2 POC ABG pO2 ABG pO2 35.4 L* ABG HCO3 ABG O2 Saturation 54.4 L ABG Base Excess -6.7 L ABG Hemoglobin 12.9 L Oxyhemoglobin 53.4 L Sodium 132 L Potassium 5.7 H Chloride 89.8 L Carbon Dioxide 19 L BUN 62 H Creatinine 6.4 H Glucose 151 H POC Glucose Lactic Acid Calcium 5.2 L* D Phosphorus Magnesium Total Bilirubin 7.80 H Direct Bilirubin AST 682 H ALT 130 H Alkaline Phosphatase 167 H Total Creatine Kinase CK-MB (CK-2) Troponin T C-Reactive Protein Total Protein 4.8 L Albumin 2.3 L Triglycerides LDL Cholesterol Direct HDL Cholesterol Free T4 PTH Intact Urine WBC (Auto) Urine Creatinine Salicylates Acetaminophen 03/19/19 03/19/19 03/19/19 05:49 09:16 09:50 WBC RBC Hgb Hct RDW Plt Count Seg Neuts % (Manual) Lymphocytes % (Manual) Monocytes % (Manual) Nucleated RBC % Seg Neutrophils # Seg Neutrophils # Man Lymphocytes # (Manual) Monocytes # (Manual) PT INR POC ABG pH 7.222 L ABG pH POC ABG pCO2 56.6 H POC ABG pO2 ABG pO2 ABG HCO3 ABG O2 Saturation ABG Base Excess ABG Hemoglobin Oxyhemoglobin Sodium Potassium Chloride Carbon Dioxide BUN Creatinine Glucose POC Glucose 154 H Lactic Acid 2.70 H* Calcium Phosphorus Magnesium Total Bilirubin Direct Bilirubin AST ALT Alkaline Phosphatase Total Creatine Kinase CK-MB (CK-2) Troponin T C-Reactive Protein Total Protein Albumin Triglycerides LDL Cholesterol Direct HDL Cholesterol Free T4 PTH Intact Urine WBC (Auto) Urine Creatinine Salicylates Acetaminophen 03/19/19 03/19/19 03/19/19 09:50 11:28 17:58 WBC RBC Hgb Hct RDW Plt Count Seg Neuts % (Manual) Lymphocytes % (Manual) Monocytes % (Manual) Nucleated RBC % Seg Neutrophils # Seg Neutrophils # Man Lymphocytes # (Manual) Monocytes # (Manual) PT INR POC ABG pH 7.250 L ABG pH POC ABG pCO2 52.6 H POC ABG pO2 ABG pO2 ABG HCO3 ABG O2 Saturation ABG Base Excess ABG Hemoglobin Oxyhemoglobin Sodium Potassium Chloride Carbon Dioxide BUN Creatinine Glucose POC Glucose 160 H Lactic Acid Calcium Phosphorus Magnesium Total Bilirubin Direct Bilirubin AST ALT Alkaline Phosphatase Total Creatine Kinase 47578 H CK-MB (CK-2) Troponin T C-Reactive Protein Total Protein Albumin Triglycerides LDL Cholesterol Direct HDL Cholesterol Free T4 PTH Intact Urine WBC (Auto) Urine Creatinine Salicylates Acetaminophen 03/19/19 03/19/19 03/20/19 19:48 21:03 02:16 WBC RBC Hgb Hct RDW Plt Count Seg Neuts % (Manual) Lymphocytes % (Manual) Monocytes % (Manual) Nucleated RBC % Seg Neutrophils # Seg Neutrophils # Man Lymphocytes # (Manual) Monocytes # (Manual) PT INR POC ABG pH 7.279 L ABG pH POC ABG pCO2 50.3 H POC ABG pO2 129 H ABG pO2 ABG HCO3 ABG O2 Saturation ABG Base Excess ABG Hemoglobin Oxyhemoglobin Sodium Potassium Chloride Carbon Dioxide BUN Creatinine Glucose POC Glucose 119 H 119 H Lactic Acid Calcium Phosphorus Magnesium Total Bilirubin Direct Bilirubin AST ALT Alkaline Phosphatase Total Creatine Kinase CK-MB (CK-2) Troponin T C-Reactive Protein Total Protein Albumin Triglycerides LDL Cholesterol Direct HDL Cholesterol Free T4 PTH Intact Urine WBC (Auto) Urine Creatinine Salicylates Acetaminophen 03/20/19 03/20/19 03/20/19 04:23 05:05 09:30 WBC 36.3 H RBC Hgb Hct RDW 15.5 H Plt Count 29 L Seg Neuts % (Manual) Lymphocytes % (Manual) Monocytes % (Manual) Nucleated RBC % Seg Neutrophils # Seg Neutrophils # Man Lymphocytes # (Manual) Monocytes # (Manual) PT INR POC ABG pH ABG pH POC ABG pCO2 POC ABG pO2 280 H ABG pO2 ABG HCO3 ABG O2 Saturation ABG Base Excess ABG Hemoglobin Oxyhemoglobin Sodium Potassium Chloride Carbon Dioxide BUN Creatinine Glucose POC Glucose 115 H Lactic Acid Calcium Phosphorus Magnesium Total Bilirubin Direct Bilirubin AST ALT Alkaline Phosphatase Total Creatine Kinase CK-MB (CK-2) Troponin T C-Reactive Protein Total Protein Albumin Triglycerides LDL Cholesterol Direct HDL Cholesterol Free T4 PTH Intact Urine WBC (Auto) Urine Creatinine Salicylates Acetaminophen 03/20/19 03/20/19 03/20/19 09:30 09:30 11:34 WBC RBC Hgb Hct RDW Plt Count Seg Neuts % (Manual) Lymphocytes % (Manual) Monocytes % (Manual) Nucleated RBC % Seg Neutrophils # Seg Neutrophils # Man Lymphocytes # (Manual) Monocytes # (Manual) PT INR POC ABG pH ABG pH POC ABG pCO2 POC ABG pO2 ABG pO2 ABG HCO3 ABG O2 Saturation ABG Base Excess ABG Hemoglobin Oxyhemoglobin Sodium 131 L Potassium Chloride 92.3 L Carbon Dioxide 20 L BUN 68 H Creatinine 6.1 H Glucose 164 H POC Glucose 141 H Lactic Acid Calcium 5.3 L* Phosphorus Magnesium Total Bilirubin 9.50 H Direct Bilirubin AST 381 H ALT 116 H Alkaline Phosphatase 255 H Total Creatine Kinase 09460 H CK-MB (CK-2) Troponin T C-Reactive Protein Total Protein 5.1 L Albumin 2.3 L Triglycerides LDL Cholesterol Direct HDL Cholesterol Free T4 PTH Intact Urine WBC (Auto) Urine Creatinine Salicylates Acetaminophen 03/20/19 03/20/19 03/20/19 14:41 14:45 18:50 WBC RBC Hgb Hct RDW Plt Count Seg Neuts % (Manual) Lymphocytes % (Manual) Monocytes % (Manual) Nucleated RBC % Seg Neutrophils # Seg Neutrophils # Man Lymphocytes # (Manual) Monocytes # (Manual) PT INR POC ABG pH ABG pH POC ABG pCO2 POC ABG pO2 ABG pO2 ABG HCO3 ABG O2 Saturation ABG Base Excess ABG Hemoglobin Oxyhemoglobin Sodium Potassium Chloride Carbon Dioxide BUN Creatinine Glucose POC Glucose 117 H Lactic Acid 2.90 H* Calcium Phosphorus Magnesium Total Bilirubin Direct Bilirubin AST ALT Alkaline Phosphatase Total Creatine Kinase CK-MB (CK-2) Troponin T C-Reactive Protein 13.30 H Total Protein Albumin Triglycerides LDL Cholesterol Direct HDL Cholesterol Free T4 PTH Intact Urine WBC (Auto) Urine Creatinine Salicylates Acetaminophen 03/20/19 03/21/19 03/21/19 21:55 04:26 04:26 WBC 37.8 H RBC Hgb Hct RDW 15.4 H Plt Count 36 L Seg Neuts % (Manual) 93.0 H Lymphocytes % (Manual) 3.0 L Monocytes % (Manual) Nucleated RBC % 1.0 H Seg Neutrophils # 34.6 H Seg Neutrophils # Man 35.2 H Lymphocytes # (Manual) 1.1 L Monocytes # (Manual) PT INR POC ABG pH ABG pH POC ABG pCO2 POC ABG pO2 ABG pO2 ABG HCO3 ABG O2 Saturation ABG Base Excess ABG Hemoglobin Oxyhemoglobin Sodium 131 L Potassium Chloride 90.7 L Carbon Dioxide 21 L BUN 69 H Creatinine 5.7 H Glucose 170 H POC Glucose 128 H Lactic Acid Calcium 6.1 L D Phosphorus Magnesium Total Bilirubin 9.50 H Direct Bilirubin AST 308 H ALT 124 H Alkaline Phosphatase 327 H Total Creatine Kinase 18542 H CK-MB (CK-2) Troponin T C-Reactive Protein Total Protein 5.7 L Albumin 2.6 L Triglycerides LDL Cholesterol Direct HDL Cholesterol Free T4 PTH Intact Urine WBC (Auto) Urine Creatinine Salicylates Acetaminophen 03/21/19 03/21/19 03/21/19 05:17 05:39 08:29 WBC RBC Hgb Hct RDW Plt Count Seg Neuts % (Manual) Lymphocytes % (Manual) Monocytes % (Manual) Nucleated RBC % Seg Neutrophils # Seg Neutrophils # Man Lymphocytes # (Manual) Monocytes # (Manual) PT INR POC ABG pH ABG pH POC ABG pCO2 POC ABG pO2 209 H ABG pO2 ABG HCO3 ABG O2 Saturation ABG Base Excess ABG Hemoglobin Oxyhemoglobin Sodium Potassium Chloride Carbon Dioxide BUN Creatinine Glucose POC Glucose 145 H Lactic Acid Calcium Phosphorus Magnesium Total Bilirubin Direct Bilirubin AST ALT Alkaline Phosphatase Total Creatine Kinase 78454 H CK-MB (CK-2) Troponin T C-Reactive Protein Total Protein Albumin Triglycerides LDL Cholesterol Direct HDL Cholesterol Free T4 PTH Intact Urine WBC (Auto) Urine Creatinine Salicylates Acetaminophen 03/21/19 03/21/19 03/21/19 08:29 11:43 12:00 WBC RBC Hgb Hct RDW Plt Count Seg Neuts % (Manual) Lymphocytes % (Manual) Monocytes % (Manual) Nucleated RBC % Seg Neutrophils # Seg Neutrophils # Man Lymphocytes # (Manual) Monocytes # (Manual) PT INR POC ABG pH ABG pH POC ABG pCO2 POC ABG pO2 ABG pO2 ABG HCO3 ABG O2 Saturation ABG Base Excess ABG Hemoglobin Oxyhemoglobin Sodium Potassium Chloride Carbon Dioxide BUN Creatinine Glucose POC Glucose 123 H Lactic Acid 2.60 H* 2.20 H* Calcium Phosphorus Magnesium Total Bilirubin Direct Bilirubin AST ALT Alkaline Phosphatase Total Creatine Kinase CK-MB (CK-2) Troponin T C-Reactive Protein Total Protein Albumin Triglycerides LDL Cholesterol Direct HDL Cholesterol Free T4 PTH Intact Urine WBC (Auto) Urine Creatinine Salicylates Acetaminophen 03/21/19 03/21/19 03/21/19 14:11 18:28 19:32 WBC RBC Hgb Hct RDW Plt Count Seg Neuts % (Manual) Lymphocytes % (Manual) Monocytes % (Manual) Nucleated RBC % Seg Neutrophils # Seg Neutrophils # Man Lymphocytes # (Manual) Monocytes # (Manual) PT INR POC ABG pH 7.293 L ABG pH POC ABG pCO2 POC ABG pO2 ABG pO2 ABG HCO3 ABG O2 Saturation ABG Base Excess ABG Hemoglobin Oxyhemoglobin Sodium Potassium Chloride Carbon Dioxide BUN Creatinine Glucose POC Glucose 153 H Lactic Acid 2.10 H* Calcium Phosphorus Magnesium Total Bilirubin Direct Bilirubin AST ALT Alkaline Phosphatase Total Creatine Kinase CK-MB (CK-2) Troponin T C-Reactive Protein Total Protein Albumin Triglycerides LDL Cholesterol Direct HDL Cholesterol Free T4 PTH Intact Urine WBC (Auto) Urine Creatinine Salicylates Acetaminophen 03/21/19 03/22/19 03/22/19 23:38 05:08 05:51 WBC RBC Hgb Hct RDW Plt Count Seg Neuts % (Manual) Lymphocytes % (Manual) Monocytes % (Manual) Nucleated RBC % Seg Neutrophils # Seg Neutrophils # Man Lymphocytes # (Manual) Monocytes # (Manual) PT INR POC ABG pH 7.283 L ABG pH POC ABG pCO2 POC ABG pO2 53 L ABG pO2 ABG HCO3 ABG O2 Saturation ABG Base Excess ABG Hemoglobin Oxyhemoglobin Sodium Potassium Chloride Carbon Dioxide BUN Creatinine Glucose POC Glucose 149 H 131 H Lactic Acid Calcium Phosphorus Magnesium Total Bilirubin Direct Bilirubin AST ALT Alkaline Phosphatase Total Creatine Kinase CK-MB (CK-2) Troponin T C-Reactive Protein Total Protein Albumin Triglycerides LDL Cholesterol Direct HDL Cholesterol Free T4 PTH Intact Urine WBC (Auto) Urine Creatinine Salicylates Acetaminophen 03/22/19 03/22/19 03/22/19 08:00 08:00 18:19 WBC 36.7 H RBC Hgb 11.0 L Hct 33.5 L RDW 15.5 H Plt Count 43 L Seg Neuts % (Manual) 87.0 H Lymphocytes % (Manual) 7.0 L Monocytes % (Manual) Nucleated RBC % Seg Neutrophils # Seg Neutrophils # Man 31.9 H Lymphocytes # (Manual) Monocytes # (Manual) PT INR POC ABG pH ABG pH POC ABG pCO2 46.4 H POC ABG pO2 108 H ABG pO2 ABG HCO3 ABG O2 Saturation ABG Base Excess ABG Hemoglobin Oxyhemoglobin Sodium 132 L Potassium 5.6 H Chloride 89.6 L Carbon Dioxide 20 L BUN 101 H Creatinine 7.4 H Glucose 124 H POC Glucose Lactic Acid Calcium 5.2 L* Phosphorus Magnesium Total Bilirubin 2.80 H Direct Bilirubin AST 119 H ALT 86 H Alkaline Phosphatase 245 H Total Creatine Kinase CK-MB (CK-2) Troponin T C-Reactive Protein Total Protein 5.6 L Albumin 2.5 L Triglycerides LDL Cholesterol Direct HDL Cholesterol Free T4 PTH Intact Urine WBC (Auto) Urine Creatinine Salicylates Acetaminophen 03/22/19 03/23/19 03/23/19 20:37 04:49 05:28 WBC 35.9 H RBC Hgb 10.8 L Hct 33.2 L RDW 15.5 H Plt Count 49 L Seg Neuts % (Manual) 81.0 H Lymphocytes % (Manual) 3.5 L Monocytes % (Manual) Nucleated RBC % Seg Neutrophils # Seg Neutrophils # Man 29.1 H Lymphocytes # (Manual) Monocytes # (Manual) 1.4 H PT INR POC ABG pH 7.296 L ABG pH POC ABG pCO2 46.2 H POC ABG pO2 ABG pO2 ABG HCO3 ABG O2 Saturation ABG Base Excess ABG Hemoglobin Oxyhemoglobin Sodium 129 L Potassium 5.2 H Chloride 91.1 L Carbon Dioxide BUN 91 H Creatinine 6.6 H Glucose 190 H POC Glucose Lactic Acid Calcium 5.3 L* Phosphorus Magnesium Total Bilirubin 1.80 H Direct Bilirubin AST 80 H ALT 62 H Alkaline Phosphatase 209 H Total Creatine Kinase 9758 H CK-MB (CK-2) Troponin T C-Reactive Protein Total Protein 5.2 L Albumin 2.2 L Triglycerides LDL Cholesterol Direct HDL Cholesterol Free T4 PTH Intact Urine WBC (Auto) Urine Creatinine Salicylates Acetaminophen 03/23/19 03/23/19 03/23/19 05:28 05:31 11:33 WBC 29.7 H RBC 3.59 L Hgb 10.1 L Hct 31.1 L RDW 15.4 H Plt Count 47 L Seg Neuts % (Manual) 89.0 H Lymphocytes % (Manual) 6.0 L Monocytes % (Manual) Nucleated RBC % 1.0 H Seg Neutrophils # Seg Neutrophils # Man 26.4 H Lymphocytes # (Manual) Monocytes # (Manual) PT INR POC ABG pH ABG pH POC ABG pCO2 POC ABG pO2 ABG pO2 ABG HCO3 ABG O2 Saturation ABG Base Excess ABG Hemoglobin Oxyhemoglobin Sodium Potassium Chloride Carbon Dioxide BUN Creatinine Glucose POC Glucose 122 H 113 H Lactic Acid Calcium Phosphorus Magnesium Total Bilirubin Direct Bilirubin AST ALT Alkaline Phosphatase Total Creatine Kinase CK-MB (CK-2) Troponin T C-Reactive Protein Total Protein Albumin Triglycerides LDL Cholesterol Direct HDL Cholesterol Free T4 PTH Intact Urine WBC (Auto) Urine Creatinine Salicylates Acetaminophen 03/23/19 03/24/19 03/24/19 17:47 00:00 04:50 WBC 35.0 H RBC Hgb 10.4 L Hct 32.4 L RDW Plt Count 60 L Seg Neuts % (Manual) 93.0 H Lymphocytes % (Manual) 5.0 L Monocytes % (Manual) Nucleated RBC % 7.0 H Seg Neutrophils # Seg Neutrophils # Man 32.6 H Lymphocytes # (Manual) Monocytes # (Manual) PT INR POC ABG pH ABG pH POC ABG pCO2 POC ABG pO2 ABG pO2 ABG HCO3 ABG O2 Saturation ABG Base Excess ABG Hemoglobin Oxyhemoglobin Sodium Potassium Chloride Carbon Dioxide BUN Creatinine Glucose POC Glucose 111 H 108 H Lactic Acid Calcium Phosphorus Magnesium Total Bilirubin Direct Bilirubin AST ALT Alkaline Phosphatase Total Creatine Kinase CK-MB (CK-2) Troponin T C-Reactive Protein Total Protein Albumin Triglycerides LDL Cholesterol Direct HDL Cholesterol Free T4 PTH Intact Urine WBC (Auto) Urine Creatinine Salicylates Acetaminophen 03/24/19 03/24/19 03/24/19 04:50 05:06 12:55 WBC RBC Hgb Hct RDW Plt Count Seg Neuts % (Manual) Lymphocytes % (Manual) Monocytes % (Manual) Nucleated RBC % Seg Neutrophils # Seg Neutrophils # Man Lymphocytes # (Manual) Monocytes # (Manual) PT INR POC ABG pH ABG pH POC ABG pCO2 POC ABG pO2 ABG pO2 ABG HCO3 ABG O2 Saturation ABG Base Excess ABG Hemoglobin Oxyhemoglobin Sodium 134 L Potassium 5.1 H Chloride 95.3 L Carbon Dioxide 21 L BUN 85 H Creatinine 6.4 H Glucose 109 H POC Glucose 112 H 110 H Lactic Acid Calcium 5.8 L* Phosphorus Magnesium Total Bilirubin Direct Bilirubin AST ALT Alkaline Phosphatase Total Creatine Kinase 5747 H CK-MB (CK-2) Troponin T C-Reactive Protein Total Protein Albumin Triglycerides LDL Cholesterol Direct HDL Cholesterol Free T4 PTH Intact Urine WBC (Auto) Urine Creatinine Salicylates Acetaminophen 03/24/19 03/25/19 03/25/19 23:29 05:00 05:00 WBC RBC Hgb Hct RDW Plt Count Seg Neuts % (Manual) Lymphocytes % (Manual) Monocytes % (Manual) Nucleated RBC % Seg Neutrophils # Seg Neutrophils # Man Lymphocytes # (Manual) Monocytes # (Manual) PT INR POC ABG pH ABG pH POC ABG pCO2 POC ABG pO2 ABG pO2 ABG HCO3 ABG O2 Saturation ABG Base Excess ABG Hemoglobin Oxyhemoglobin Sodium 133 L Potassium Chloride 94.0 L Carbon Dioxide 21 L BUN 81 H Creatinine 6.4 H Glucose POC Glucose 109 H Lactic Acid Calcium 5.5 L* Phosphorus Magnesium Total Bilirubin Direct Bilirubin AST 80 H ALT Alkaline Phosphatase 202 H Total Creatine Kinase 3589 H CK-MB (CK-2) Troponin T C-Reactive Protein Total Protein 5.3 L Albumin 2.4 L Triglycerides LDL Cholesterol Direct HDL Cholesterol Free T4 PTH Intact 329.9 H Urine WBC (Auto) Urine Creatinine Salicylates Acetaminophen 03/25/19 03/25/19 05:00 06:30 WBC 23.3 H RBC 3.61 L Hgb 10.2 L Hct 31.2 L RDW Plt Count 57 L Seg Neuts % (Manual) 92.0 H Lymphocytes % (Manual) 6.0 L Monocytes % (Manual) Nucleated RBC % Seg Neutrophils # Seg Neutrophils # Man 21.4 H Lymphocytes # (Manual) Monocytes # (Manual) PT INR POC ABG pH ABG pH POC ABG pCO2 POC ABG pO2 ABG pO2 109.5 H ABG HCO3 18.8 L ABG O2 Saturation ABG Base Excess -4.4 L ABG Hemoglobin 10.1 L Oxyhemoglobin Sodium Potassium Chloride Carbon Dioxide BUN Creatinine Glucose POC Glucose Lactic Acid Calcium Phosphorus Magnesium Total Bilirubin Direct Bilirubin AST ALT Alkaline Phosphatase Total Creatine Kinase CK-MB (CK-2) Troponin T C-Reactive Protein Total Protein Albumin Triglycerides LDL Cholesterol Direct HDL Cholesterol Free T4 PTH Intact Urine WBC (Auto) Urine Creatinine Salicylates Acetaminophen Chest x-ray: image reviewed ([facility] HD adn ETT in good position, alveolar infitrates improving, right lung fluid in the fissure vs plate atelectasis) Allied health notes reviewed: RT
--- NOTE | 2019-03-25 16:46 | Progress Note ---
Assessment and Plan Cultures: 03/16/2019 sputum: salivary contamination 03/16/2019 Blood culture: no growth 03/17/2019 Urine culture no growth 03/17/2019 throat culture: no growth Assessment: 43/M with ?psych history: 1) Septic shock: much improved, down to 1 pressor. Remains on HD, intubated on the vent. Leukocytosis present, fever resolved. ?Infectious etiology v/s possibility of Neuroleptic Malignant Syndrome given psych history, high fever of 105F and extremely elevated CPK of >100K. Unclear if he was on any psych med. From ID standpoint, we will continue broad coverage for acute bacterial meningitis, tick borne illness, aspiration pneumonia. Blood culture negative so far. UA with mild pyuria. HIV rapid negative. Strep A rapid ag negative. No obvious infectious source identified yet. 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 He lives in a hotel in a [place] neighborhood in [place] and believes he has been intermittently homeless. He met his friend Gio, who brought him to [place]. Brother denies any history of drug abuse or alcohol abuse but reports history of mental disorder, he has never received treatment. His parent do not talk to him. He denies homosexual behavior but does not have clear why he is in so close contact with new friend Gio here in [place]. Brother does not know anything about his symptoms as he spoke with him last time 3 months ago. Leukocytosis improved. 2) Probable aspiration pneumonia: Already completed adequate abx. 3) Acute respiratory failure: on the vent. 4) ?Right axillary edema: no abscess, US no collection seen 5) Acute encephalopathy: should r/o meningitis when able to. CT head showed diffuse cerebral edema ?artifact. But too unstable for LP at this time. Low suspicion for HSV meningoencephalitis given the degree of his initial shock and clinical status. Given nationwide acyclovir shortage and low suspicion, would not recommend IV Ganciclovir at this time. 6) Acute renal failure: renally dosing all abx, now on HD 7) Elevated LFTs/shock liver: also likely elevated from Rhabdomyolysis. Viral hepatitis panel negative. LFTs continue to improve. 8) Thrombocytopenia 9) Rhabdomyolysis: CK continues to improve 10) ?Enteritis: per CT ? no collection no perforation no obvious ischemic bowel. Gen. Surg following Recommendations: Femoral arterial line removed Remove femoral central line when feasible LP awaited, continue droplet isolation till meningitis is ruled out Low suspicion for HSV meningoencephalitis given the degree of his initial refractory shock and multi-organ dysfunction. Given nationwide acyclovir shortage and low suspicion, would not recommend IV Ganciclovir at this time weighing the risks of ganciclovir associated toxicities continue IV Ceftriaxone 2 gm IV q12 h continue IV doxycycline 100 mg IV q12 h continue vancomycin IV renally adjusted tickborne serologies pending prognosis guarded Will follow along. Katie Palmer MD [facility] ([facility]) M: [phone] O: [phone] F: [phone] Subjective Date of service: 03/25/19 Principal diagnosis: Septic Shock; Ac. hypoxemic resp failure; Renzo. PNA; Rhabdomyolysis; RUBEN Interval history: Remains febrile, leukocytosis improving. Objective - Exam Narrative Exam: Physical Exam: Constitutional: sedated, intubated Head, Ears, Nose: Normocephalic, atraumatic. External ears, nose normal Eyes: Conjunctivae/corneas clear. No icterus. No ptosis. Neck: Supple, no meningeal signs Oral: intubated Cardiovascular: S1, S2 normal. Respiratory: Good air entry, clear to auscultation bilaterally GI: Soft; bowel sounds hypoactive. No peritoneal signs Musculoskeletal: No pedal edema. Skin: No rash or abscess Hem/Lymphatic: No palpable cervical or supraclavicular nodes. No lymphangitis Psych: no agitation Neurological: sedated, intubated, on vent Lines: femoral TLC - Constitutional Vitals: Vital Signs Temp Pulse Resp BP Pulse Ox 100.6 F H 86 25 H 124/68 98 03/25/19 12:00 03/25/19 15:15 03/25/19 15:15 03/25/19 15:15 03/25/19 15:15 Temperature -Last 24 Hours Temperature 100.6 F Temperature 100.0 F Temperature 99.0 F Temperature 101.8 F Temperature 101 F Temperature 101.1 F Temperature 101.1 F - Labs CBC & Chem 7: 03/25/19 05:00 03/25/19 05:00 Labs: Abnormal lab results 03/24/19 03/25/19 03/25/19 Range/Units 23:29 05:00 05:00 WBC (4.5-11.0) K/mm3 RBC (3.65-5.03) M/mm3 Hgb (11.8-15.2) gm/dl Hct (35.5-45.6) % Plt Count (140-440) K/mm3 Seg Neuts % (Manual) (40.0-70.0) % Lymphocytes % (Manual) (13.4-35.0) % Seg Neutrophils # Man (1.8-7.7) K/mm3 ABG pO2 (80.0-90.0) mm Hg ABG HCO3 (20.0-26.0) mmol/L ABG Base Excess (-2.0-3.0) mmol/L ABG Hemoglobin (14.0-18.0) gm/dl Sodium 133 L (137-145) mmol/L Chloride 94.0 L (98-107) mmol/L Carbon Dioxide 21 L (22-30) mmol/L BUN 81 H (9-20) mg/dL Creatinine 6.4 H (0.8-1.5) mg/dL POC Glucose 109 H (70-105) Calcium 5.5 L* (8.4-10.2) mg/dL AST 80 H (5-40) units/L Alkaline Phosphatase 202 H (35-129) units/L Total Creatine Kinase 3589 H (55-170) units/L Total Protein 5.3 L (6.3-8.2) g/dL Albumin 2.4 L (3.9-5) g/dL PTH Intact 329.9 H (15-65) pg/mL 03/25/19 03/25/19 Range/Units 05:00 06:30 WBC 23.3 H (4.5-11.0) K/mm3 RBC 3.61 L (3.65-5.03) M/mm3 Hgb 10.2 L (11.8-15.2) gm/dl Hct 31.2 L (35.5-45.6) % Plt Count 57 L (140-440) K/mm3 Seg Neuts % (Manual) 92.0 H (40.0-70.0) % Lymphocytes % (Manual) 6.0 L (13.4-35.0) % Seg Neutrophils # Man 21.4 H (1.8-7.7) K/mm3 ABG pO2 109.5 H (80.0-90.0) mm Hg ABG HCO3 18.8 L (20.0-26.0) mmol/L ABG Base Excess -4.4 L (-2.0-3.0) mmol/L ABG Hemoglobin 10.1 L (14.0-18.0) gm/dl Sodium (137-145) mmol/L Chloride (98-107) mmol/L Carbon Dioxide (22-30) mmol/L BUN (9-20) mg/dL Creatinine (0.8-1.5) mg/dL POC Glucose (70-105) Calcium (8.4-10.2) mg/dL AST (5-40) units/L Alkaline Phosphatase (35-129) units/L Total Creatine Kinase (55-170) units/L Total Protein (6.3-8.2) g/dL Albumin (3.9-5) g/dL PTH Intact (15-65) pg/mL
[2019-03-25] MEDS ORDERED: QUEtiapine 100 MG TAB PO SCH (22:00)
[2019-03-25] MEDS: QUEtiapine 25 MG TAB PO SCH (22:00)
[2019-03-26] MEDS: MIDODRINE 5 MG TAB PO SCH ×5 (00:46→20:23)
[2019-03-26] MEDS: IPRATROPIUM/ALBUTEROL SULFATE 3 ML AMPUL.NEB IH SCH ×7 (02:27→23:35)
[2019-03-26 06:39] LABS: Hematocrit 29.9 % (35.5-45.6); Hemoglobin 9.8 gm/dl (11.8-15.2); Mean Corpuscular HGB Conc 33 % (32-34); Mean Corpuscular Volume 87 fl (84-94); Red Blood Count 3.44 M/mm3 (3.65-5.03); Red Cell Distribution Width 14.8 % (13.2-15.2)
[2019-03-26 06:51] LABS: Platelet Count 85 K/mm3 (140-440)
[2019-03-26] MEDS: ACETAMINOPHEN 650 MG RECT SUPP PR PRN (07:00)
[2019-03-26] MEDS: PROPOFOL 1,000 MG/100 ML BOTTLE IV SCH ×4 (07:09→21:03)
[2019-03-26 07:14] LABS: Calcium 4.5 mg/dL (8.4-10.2)
[2019-03-26 08:17] LABS: ABG Base Excess -6.8 mmol/L (-2.0-3.0); ABG HCO3 18.6 mmol/L (20.0-26.0); ABG PCO2 36.4 mm Hg; ABG PH 7.326 pH Units (7.350-7.450); ABG PO2 137.4 mm Hg (80.0-90.0)
[2019-03-26 08:21] LABS: ABG Methemoglobin 0.6 % (0.0-1.5)
[2019-03-26 08:30] LABS: ABG Oxygen Saturation 98.6 % (95.0-99.0)
[2019-03-26 08:47] LABS: Basophils % (Manual) 0 % (0.0-1.8); Eosinophils % (Manual) 0 % (0.0-4.3); Total Cells Counted 100
[2019-03-26 08:48] LABS: Anisocytosis Few; Macrocytosis Few; Stomatocytes Few
[2019-03-26 08:52] LABS: Large Platelets Rare; Platelet Estimate Consistent w Auto
[2019-03-26] MEDS: METOCLOPRAMIDE 10 MG/2 ML INJ IV SCH ×2 (09:12→09:15)
--- NOTE | 2019-03-26 09:30 | Progress Note ---
Assessment and Plan S/p cardiopulmonary arrest Upon admission on 03/16/2019, pt initially in SVT 250s and received 50 J synchronized shock, rhythm deteriorated to a polymorphic V. tach and then monomorphic V. tach and then patient was defibrillated at 325 J. Patient rhythm then became sinus. Pt was subsequently intubated in ED. Echo showed EF 40-45%, impaired relaxation. Leroy negative for AMI. ECGs with no acute ischemic changes. Plan for ischemic evaluation if/when medically stabilized. Acute respiratory failure Intubated. Management per pulmonary. Transient SVT Torsades sparkle pointes / Ventricular tachycardia Cont amio gtt. Plan for ischemic evaluation if/when medically stabilized. Paroxysmal atrial fibrillation with RVR Cont amio gtt. Consider conversion to PO amio as early as tomorrow as pt currently appears to be tolerating minimal PO intake. No systemic AC regarding AFib in setting of severe thrombocytopenia. Cardiomyopathy EF 40-45% No BB or ACEI/ARB at this time in setting of hypotension and acute renal failure. Plan for ischemic evaluation if/when medically stabilized. AMS Neurology following. Head CT with no definite acute findings. AMS secondary to metabolic encephalopathy per neurology. Septic shock / probable aspiration PNA / ? meningitis / right axillary cellulitis Currently weaned off vasopressor support. ID following. Per ID, ?Infectious etiology v/s possibility of Neuroleptic Malignant Syndrome given psych history, high fever of 105F and extremely elevated CPK of >100K. Pt remains febrile. Blood cultures negative to date. Abx per ID team. Unable to perform lumbar puncture at this time in setting of thrombocytopenia. Acute renal failure / Rhabdomyolysis Initiated on HD. Nephrology following. Hyperkalemia / Hyponatremia / Hypocalcemia Electrolyte management per nephrology. Enteritis Abdomen CT showed moderately dilated small bowel bowel loops in the mid to upper abdomen anteriorly with mild associated bowel wall thickening. Localized enteritis and small bowel ischemia should be considered. General surgery following. Per general surgery, noevidence of peritonitis and no definitive indication for surgical intervention. Pt currently tolerating low volume TF infusion. Elevated LFTs ? shock liver. LFTs improving. Thrombocytopenia Monitor CBC. H/o psych disorder Obesity The patient has been seen in conjunction with Dr. Rubalcava who agrees with the assessment and plan of care. Subjective Date of service: 03/26/19 Principal diagnosis: Septic Shock; Ac. hypoxemic resp failure; Renzo. PNA; Rhabdomyolysis; RUBEN Interval history: pt remains intubated, moving arms and legs, no purposeful response noted, sedated, currently weaned off vasopressors, on amio gtt. currently in SR on tele. Objective Last Vital Signs Temp 101.4 F H 03/26/19 08:00 Pulse 91 H 03/26/19 08:00 Resp 30 H 03/26/19 08:00 BP 97/55 03/26/19 08:00 Pulse Ox 86 03/26/19 08:00 - Physical Examination General: Other (intubated, sedated) HEENT: Positive: PERRL Neck: Positive: neck supple Cardiac: Positive: Reg Rate and Rhythm, S1/S2 Lungs: Positive: Decreased Breath Sounds Neuro: Positive: Other (intubated) Abdomen: Positive: Unremarkable /Rectal: Other (deferred) Skin: Positive: Clear Musculoskeletal: Decreased Range of Motion Extremities: Present: lower extr. pulses (weak, thready ) - Labs and Meds CBC 03/26/19 Range/Units Unknown WBC 19.5 H (4.5-11.0) K/mm3 RBC 3.44 L (3.65-5.03) M/mm3 Hgb 9.8 L (11.8-15.2) gm/dl Hct 29.9 L (35.5-45.6) % Plt Count 85 L (140-440) K/mm3 Comprehensive Metabolic Panel 03/26/19 Range/Units Unknown Sodium 135 L (137-145) mmol/L Potassium 5.2 H D (3.6-5.0) mmol/L Chloride 92.2 L (98-107) mmol/L Carbon Dioxide 18 L (22-30) mmol/L BUN 109 H (9-20) mg/dL Creatinine 8.5 H (0.8-1.5) mg/dL Glucose 117 H (75-100) mg/dL Calcium 4.5 L* D (8.4-10.2) mg/dL - Imaging and Cardiology Echo: report reviewed ( EF 40-45%, impaired relaxation. ) - Allied health notes Allied health notes reviewed: RT
--- NOTE | 2019-03-26 09:38 | Progress Note ---
Assessment and Plan 1. Acute kidney injury: Vasomotor RUBEN in the setting of shock / volume depletion / Rhabdo. Baseline renal function is unknown. Patient remain anuric / oliguric. CT abdomen was negative for obstructive nephropathy. Monitor renal function. Renal prognosis is guarded. Avoid nephrotoxic agents. Meds dosage based on GFR. Patient was started on hemodialysis on 03/18/19 due to worsening metabolic acidosis and hyperkalemia. Hemodialysis: 03/18, 03/19, 03/20, 03/22, 03/23, 03/24, 03/26 2. FEN: Hyperkalemia, HD today with low K bath. Hyponatremia, monitor. Metabolic acidosis, 2/2 Lactic acidosis. Volume overload, UF with HD as tolerated. Replete Calcium. Monitor lytes. 3. Septic shock: On broad spectrum Abx. Followed by ID. Currently on Midodrine and Levophed. 4. Rhabdomyolysis: Follow CK level. 5. SVT / V.tach: Followed by Cards. 6. Respiratory failure: On vent. 7. Multiple organ failure. 8. Elevated transaminases. 9. Encephalopathy: Followed by Neuro. Examination: General appearance: well-developed, appears stated age, obese, intubated, on vent HEENT: Atraumatic EYES: STIVEN Neck: supple Respiratory: coarse breath sounds Cardiology: regular, S1S2 heard, no murmurs Gastrointestinal: no tenderness, obese, BS heard Integumentary: R hand bruise noted Neurologic: Obtunded Ext: trace edema of all 4 extremities Hemodialysis access: R IJ temp catheter Subjective Date of service: 03/26/19 Principal diagnosis: Septic Shock; Ac. hypoxemic resp failure; Renzo. PNA; Rhabdomyolysis; RUBEN Interval history: Patient was seen and examined at the bedside. Remain on the vent. Objective - Vital Signs Vital signs: Vital Signs - 12hr 03/25/19 03/25/19 03/25/19 21:45 22:01 22:15 Temperature Pulse Rate 87 87 86 Pulse Rate [ Anterior Bilateral Throughout] Respiratory 34 H 33 H 33 H Rate Respiratory Rate [Anterior Bilateral Throughout] Blood Pressure 165/84 156/78 156/78 O2 Sat by Pulse 99 98 99 Oximetry 03/25/19 03/25/19 03/25/19 22:31 22:45 23:01 Temperature Pulse Rate 87 87 87 Pulse Rate [ Anterior Bilateral Throughout] Respiratory 29 H 31 H 32 H Rate Respiratory Rate [Anterior Bilateral Throughout] Blood Pressure 152/81 152/81 145/74 O2 Sat by Pulse 99 99 100 Oximetry 03/25/19 03/25/19 03/25/19 23:15 23:31 23:45 Temperature Pulse Rate 89 88 89 Pulse Rate [ Anterior Bilateral Throughout] Respiratory 31 H 34 H 32 H Rate Respiratory Rate [Anterior Bilateral Throughout] Blood Pressure 145/74 131/71 131/71 O2 Sat by Pulse 100 100 100 Oximetry 03/26/19 03/26/19 03/26/19 00:01 00:15 00:25 Temperature Pulse Rate 90 90 93 H Pulse Rate [ Anterior Bilateral Throughout] Respiratory 33 H 33 H Rate Respiratory Rate [Anterior Bilateral Throughout] Blood Pressure 129/69 136/67 120/63 O2 Sat by Pulse 100 100 100 Oximetry 03/26/19 03/26/19 03/26/19 00:30 00:45 01:00 Temperature Pulse Rate 91 H 91 H 91 H Pulse Rate [ Anterior Bilateral Throughout] Respiratory 30 H 28 H 31 H Rate Respiratory Rate [Anterior Bilateral Throughout] Blood Pressure 122/69 113/68 107/68 O2 Sat by Pulse 100 100 100 Oximetry 03/26/19 03/26/19 03/26/19 01:15 01:30 01:45 Temperature Pulse Rate 92 H 92 H 93 H Pulse Rate [ Anterior Bilateral Throughout] Respiratory 29 H 33 H 27 H Rate Respiratory Rate [Anterior Bilateral Throughout] Blood Pressure 102/69 107/68 107/65 O2 Sat by Pulse 100 100 100 Oximetry 03/26/19 03/26/19 03/26/19 02:00 02:15 02:24 Temperature Pulse Rate 93 H 93 H Pulse Rate [ 92 H Anterior Bilateral Throughout] Respiratory 29 H 31 H Rate Respiratory 31 H Rate [Anterior Bilateral Throughout] Blood Pressure 110/65 120/63 O2 Sat by Pulse 100 100 Oximetry 03/26/19 03/26/19 03/26/19 02:30 02:45 03:01 Temperature Pulse Rate 94 H 92 H 94 H Pulse Rate [ Anterior Bilateral Throughout] Respiratory 26 H 25 H 25 H Rate Respiratory Rate [Anterior Bilateral Throughout] Blood Pressure 118/62 127/65 116/61 O2 Sat by Pulse 100 100 100 Oximetry 03/26/19 03/26/19 03/26/19 03:15 03:30 03:45 Temperature Pulse Rate 94 H 93 H 93 H Pulse Rate [ Anterior Bilateral Throughout] Respiratory 27 H 19 26 H Rate Respiratory Rate [Anterior Bilateral Throughout] Blood Pressure 110/61 110/61 115/56 O2 Sat by Pulse 100 100 100 Oximetry 03/26/19 03/26/19 03/26/19 04:00 04:10 04:15 Temperature Pulse Rate 93 H 92 H 93 H Pulse Rate [ Anterior Bilateral Throughout] Respiratory 19 23 Rate Respiratory Rate [Anterior Bilateral Throughout] Blood Pressure 111/53 130/65 108/58 O2 Sat by Pulse 99 100 99 Oximetry 03/26/19 03/26/19 03/26/19 04:30 04:45 05:00 Temperature Pulse Rate 93 H 93 H 93 H Pulse Rate [ Anterior Bilateral Throughout] Respiratory 21 27 H 22 Rate Respiratory Rate [Anterior Bilateral Throughout] Blood Pressure 108/55 114/55 107/50 O2 Sat by Pulse 99 100 100 Oximetry 03/26/19 03/26/19 03/26/19 05:15 05:30 05:45 Temperature Pulse Rate 93 H 94 H 93 H Pulse Rate [ Anterior Bilateral Throughout] Respiratory 14 26 H 25 H Rate Respiratory Rate [Anterior Bilateral Throughout] Blood Pressure 106/51 108/54 103/54 O2 Sat by Pulse 100 100 100 Oximetry 03/26/19 03/26/19 03/26/19 06:00 06:15 06:30 Temperature Pulse Rate 93 H 94 H 92 H Pulse Rate [ Anterior Bilateral Throughout] Respiratory 25 H 29 H 18 Rate Respiratory Rate [Anterior Bilateral Throughout] Blood Pressure 102/54 111/61 111/61 O2 Sat by Pulse 100 99 96 Oximetry 03/26/19 03/26/19 03/26/19 06:46 07:00 07:15 Temperature Pulse Rate 92 H 92 H 93 H Pulse Rate [ Anterior Bilateral Throughout] Respiratory 21 29 H 36 H Rate Respiratory Rate [Anterior Bilateral Throughout] Blood Pressure 130/65 103/53 108/56 O2 Sat by Pulse 98 100 100 Oximetry 03/26/19 03/26/19 03/26/19 07:30 07:40 07:42 Temperature Pulse Rate 93 H 91 H Pulse Rate [ 93 H Anterior Bilateral Throughout] Respiratory 20 Rate Respiratory 27 H Rate [Anterior Bilateral Throughout] Blood Pressure 102/55 102/55 O2 Sat by Pulse 100 100 Oximetry 03/26/19 03/26/19 07:45 08:00 Temperature 101.4 F H Pulse Rate 92 H 91 H Pulse Rate [ Anterior Bilateral Throughout] Respiratory 32 H 30 H Rate Respiratory Rate [Anterior Bilateral Throughout] Blood Pressure 102/59 97/55 O2 Sat by Pulse 100 86 Oximetry - Lab 03/26/19 Unknown 03/26/19 Unknown Most recent lab results ABG pH 7.326 pH Units (7.350-7.450) L 03/26/19 04:30 ABG pCO2 36.4 mm Hg 03/26/19 04:30 ABG pO2 137.4 mm Hg (80.0-90.0) H 03/26/19 04:30 ABG HCO3 18.6 mmol/L (20.0-26.0) L 03/26/19 04:30 ABG O2 Saturation 98.6 % (95.0-99.0) 03/26/19 04:30 Calcium 4.5 mg/dL (8.4-10.2) L* D 03/26/19 Unknown Phosphorus 7.30 mg/dL (2.5-4.5) H 03/17/19 03:45 Magnesium 2.40 mg/dL (1.7-2.3) H 03/18/19 08:40 Urine Creatinine 106.6 mg/dL (0.1-20.0) H 03/17/19 16:05 Urine Sodium 95 mmol/L 03/17/19 16:05 Medications & Allergies - Medications Allergies/Adverse Reactions: Allergies No Known Allergies Allergy (Unverified 03/16/19 17:17) Home Medications: Home Medications Medication Instructions Recorded Confirmed Last Taken Type Unobtainable 03/18/19 03/18/19 Unknown History Active Medications: Generic Name Dose Route Start Last Admin Trade Name Freq PRN Reason Stop Dose Admin Acetaminophen 650 mg 03/16/19 22:22 03/26/19 07:00 Tylenol ND 650 mg Q4H PRN Administration Fever >101 Albuterol/Ipratropium 1 ampul 03/19/19 20:00 03/26/19 07:42 Duoneb *Not For Prn Use* IH 1 ampul Q4HRT PAOLO Administration Lipase/Protease/Amylase 1 each 03/17/19 14:45 Pancreazapril Purcell 10,500 Unit FEEDTUBE PRN PRN For Clogged Feeding Tube Dextrose 50 gm 03/19/19 18:39 D50w (25gm) Vial IV PRN PRN Hypoglycemia Ergocalciferol 50,000 unit 03/25/19 12:00 03/25/19 12:00 Vitamin D2 PO 03/27/19 10:01 50,000 unit DAILY PAOLO Administration Famotidine 20 mg 03/20/19 10:00 03/25/19 09:09 Pepcid IV 20 mg DAILY PAOLO Administration Fentanyl 50 mcg 03/16/19 16:06 03/24/19 20:08 Sublimaze IV 50 mcg Q10MIN PRN Administration ANALGESIA Fentanyl 25 mcg 03/19/19 18:33 03/20/19 02:53 Sublimaze IV 25 mcg Q2H PRN Administration Pain, Moderate (4-6) Hydrocortisone Sodium Succinate 50 mg 03/26/19 10:00 Solu-Cortef IV 03/27/19 10:01 Q24HR PAOLO Hydrophilic Ointment 1 applic 03/16/19 15:50 Vaseline Lip Therapy TP Q2HR PRN Dry Lips Midazolam HCl 100 mg/ Sodium 100 mls @ 2 mls/hr 03/16/19 16:00 03/19/19 18:45 Chloride IV 0 mg/hr TITR PAOLO 0 mls/hr Titration Protocol 2 MG/HR Vasopressin 20 unit/ Sodium 101 mls @ 9.09 mls/hr 03/16/19 23:45 03/22/19 12:00 Chloride IV Infused TITR PAOLO Titration Protocol 0.03 UNITS/MIN Norepinephrine 8 mg/ Sodium 250 mls @ 3.75 mls/hr 03/17/19 02:00 03/24/19 16:16 Chloride IV 0 mcg/min TITR PAOLO 0 mls/hr Titration Protocol 2 MCG/MIN Phenylephrine HCl 100 mg/ 100 mls @ 3 mls/hr 03/17/19 02:30 03/19/19 18:48 Sodium Chloride IV Infused TITR PAOLO Titration Protocol 50 MCG/MIN Ceftriaxone Sodium 2 gm in 100 mls @ 200 mls/hr 03/17/19 12:00 03/25/19 22:01 Rocephin/Ns 2 Gm/100 Ml IV 200 mls/hr Q12HR PAOLO Administration Protocol Doxycycline Hyclate 100 mg/ 250 mls @ 250 mls/hr 03/17/19 12:00 03/25/19 22:03 Sodium Chloride IV 250 mls/hr Q12HR PAOLO Administration Protocol Dopamine HCl/Dextrose 800 mg in 250 mls @ 5.103 mls/hr 03/17/19 23:00 03/20/19 12:54 Intropin Drip 800 Mg/D5w 250 Ml IV 0 mcg/kg/min TITR PAOLO 0 mls/hr Titration Protocol 2 MCG/KG/MIN Amiodarone HCl 900 mg/ 500 mls @ 33.333 mls/hr 03/18/19 17:00 03/24/19 21:27 Dextrose IV 0.5 mg/min DIRECT PAOLO 16.667 mls/hr Administration Protocol 1 MG/MIN Propofol 1,000 mg in 100 mls @ 4.572 mls/hr 03/22/19 12:00 03/26/19 07:09 Diprivan 10 Mg/Ml IV 30 mcg/kg/min TITR PAOLO 27.432 mls/hr Administration Protocol 5 MCG/KG/MIN Sodium Chloride 100 mls @ 999 mls/hr 03/23/19 10:04 Nacl 0.9% IV NEYMAR PRN Hypotension Midazolam HCl 2 mg 03/16/19 15:50 03/20/19 14:23 Versed IV 2 mg Q10MIN PRN Administration Sedation Midodrine 10 mg 03/18/19 20:00 03/26/19 08:25 Proamatine PO Not Given Q8H [facility] Multi-Ingred Cream/Lotion/Oil/Oint 1 applic 03/16/19 15:50 03/19/19 20:10 Artificial Tears Ophth Oint OU 1 applic Q4HR PRN Administration Dry Eye(s) Ondansetron HCl 4 mg 03/16/19 22:21 Zofran IV Q8H PRN Nausea And Vomiting Quetiapine Fumarate 50 mg 03/25/19 22:00 03/25/19 22:00 Seroquel PO 50 mg QHS PAOLO Administration Simple Syrup 15 ml 03/17/19 14:45 Simple Syrup FEEDTUBE PRN PRN Hypoglycemia Simple Syrup 30 ml 03/17/19 14:45 Simple Syrup FEEDTUBE PRN PRN Hypoglycemia Sodium Bicarbonate 325 mg 03/17/19 14:45 Sodium Bicarbonate FEEDTUBE PRN PRN For Clogged Feeding Tube
--- NOTE | 2019-03-26 09:38 | Progress Note ---
Assessment and Plan Cultures: 03/16/2019 sputum: salivary contamination 03/16/2019 Blood culture: no growth 03/17/2019 Urine culture no growth 03/17/2019 throat culture: no growth Assessment: 43y/o male with possible psych history admitted on 03/16/2019 with: 1) Septic shock: off pressors for 48h, now on amiodarone gtt. Noted fever 101.8 over the weekend. Leukocytosis some better. Possible Infectious etiology v/s possibility of Neuroleptic Malignant Syndrome given psych history, high fever of 105F and extremely elevated CPK of >100K. Unclear if he was on any psych med. From ID standpoint, we will continue broad coverage for acute bacterial meningitis, tick borne illness, aspiration pneumonia. Blood culture negative so far. UA with mild pyuria. HIV rapid negative. Strep A rapid ag negative. No obvious infectious source identified yet. 2) Probable aspiration pneumonia: Already completed adequate abx. 3) Acute respiratory failure: on the vent. Improving. 4) ?Right axillary edema: no abscess, US no collection seen 5) Acute encephalopathy: should r/o meningitis when able to. CT head showed diffuse cerebral edema ?artifact. But too unstable for LP at this time. Low suspicion for HSV meningoencephalitis given the degree of his initial shock and clinical status. Given nationwide acyclovir shortage and low suspicion, would n ot recommend IV Ganciclovir at this time. 6) Acute renal failure: renally dosing all abx, now on HD 7) Elevated LFTs/shock liver: also likely elevated from Rhabdomyolysis. Viral hepatitis panel negative. LFTs continue to improve. 8) Thrombocytopenia: multifactorial - some better 9) Rhabdomyolysis: CK continues to improve 10) ?Enteritis: per CT ? no collection no perforation no obvious ischemic bowel. Gen. Surg following Recommendations: Brain MRI w/o contrast - discussed with Dr Loo Blood culture x 2 sets today Venous US legs/arms r/o DVT Remove femoral central line when feasible LP awaited due to low platelets Ok to stop droplet isolation as he has been on IV abx for 10 days continue IV Ceftriaxone 2 gm IV q12 h continue IV doxycycline 100 mg IV q12 h continue vancomycin IV renally adjusted tickborne serologies pending prognosis guarded Discussed with Dr Loo and nursing staff Will follow. Risa Bryant MD Infectious Diseases [employer] [facility] M [phone] O [phone] Subjective Date of service: 03/26/19 Principal diagnosis: Septic Shock; Ac. hypoxemic resp failure; Renzo. PNA; Rhabdomyolysis; RUBEN Interval history: Remains intubated on sedation, Amio gtt, off pressors for 48 hours, noted fever 101.8 Objective - Exam Narrative Exam: General appearance: sedated intubated Eyes: pupils renzo contracted poorly reactive, no jaundice HENT: Atraumatic; oropharynx with ETT/OGT Neck: no JVD Lungs:distant BS CV: RRR Abdomen: Soft, non-tender; no masses or hepatosplenomegaly Extremities: renzo leg edema, +right axillar soft tissue mass non tender Skin:no rash, +scrotal edema Psych: sedated. Neuro: sedated Right femoral TLC - Constitutional Vitals: Vital Signs Temp Pulse Resp BP Pulse Ox 101.4 F H 91 H 30 H 97/55 86 03/26/19 08:00 03/26/19 08:00 03/26/19 08:00 03/26/19 08:00 03/26/19 08:00 Temperature -Last 24 Hours Temperature 101.4 F Temperature 100.0 F Temperature 98.9 F Temperature 100.6 F Temperature 100.0 F - Labs CBC & Chem 7: 03/26/19 Unknown 03/26/19 Unknown Labs: Abnormal lab results 03/26/19 03/26/19 03/26/19 Range/Units 04:30 Unknown Unknown WBC 19.5 H (4.5-11.0) K/mm3 RBC 3.44 L (3.65-5.03) M/mm3 Hgb 9.8 L (11.8-15.2) gm/dl Hct 29.9 L (35.5-45.6) % Plt Count 85 L (140-440) K/mm3 Seg Neuts % (Manual) 95.0 H (40.0-70.0) % Lymphocytes % (Manual) 3.0 L (13.4-35.0) % Seg Neutrophils # Man 18.5 H (1.8-7.7) K/mm3 Lymphocytes # (Manual) 0.6 L (1.2-5.4) K/mm3 ABG pH 7.326 L (7.350-7.450) pH Units ABG pO2 137.4 H (80.0-90.0) mm Hg ABG HCO3 18.6 L (20.0-26.0) mmol/L ABG Base Excess -6.8 L (-2.0-3.0) mmol/L ABG Hemoglobin 9.9 L (14.0-18.0) gm/dl Sodium 135 L (137-145) mmol/L Potassium 5.2 H D (3.6-5.0) mmol/L Chloride 92.2 L (98-107) mmol/L Carbon Dioxide 18 L (22-30) mmol/L BUN 109 H (9-20) mg/dL Creatinine 8.5 H (0.8-1.5) mg/dL Glucose 117 H (75-100) mg/dL Calcium 4.5 L* D (8.4-10.2) mg/dL Total Creatine Kinase 4527 H (55-170) units/L
[2019-03-26] MEDS: cefTRIAXone/NS 2 GM/100 ML 2 GM/100 ML BAG IV SCH ×2 (09:56→22:48)
[2019-03-26] MEDS: HYDROCORTISONE SOD SUCC 100 MG/2 ML VIAL IV SCH (09:57)
[2019-03-26] MEDS: DOXYCYCLINE HYCLATE 100 MG in SODIUM CHLORIDE 0.9% 250ML 250 ML IV SCH ×2 (09:57→21:33)
[2019-03-26] MEDS: FAMOTIDINE 20 MG/2 ML INJ IV SCH (09:57)
[2019-03-26] MEDS: ERGOCALCIFEROL (VIT D2) 50,000 UNIT CAP PO SCH (09:58)
[2019-03-26] MEDS ORDERED: SODIUM CHLORIDE 0.9% 100 ML IV PRN (10:38)
[2019-03-26] MEDS ORDERED: CALCIUM GLUCONATE 2,000 MG in SODIUM CHLORIDE 0.9% 100 ML IV ONE (11:00)
--- NOTE | 2019-03-26 11:15 | Progress Note ---
Assessment and Plan Severe sepsis with shock. Right axilla abscess versus localized pannus/fatty collection. Acute hypoxemic respiratory failure, on mechanical ventilator support. Likely aspiration pneumonia, bilateral. Morbid obesity. Rhabdomyolysis. Acute kidney injury on HD. Leukocytosis-persistent Morbid obesity. Metabolic acidosis. Lactic acidosis. Hypomagnesemia. Elevated serum transaminases/possible shock liver. Acute encephalopathy, toxic metabolic Thrombocytopenia- etiology, multifactorial- improving - keep on PRVC/AC , decrease PEEP to 6, ABG in the morning -Start SBTs in the morning, if gas exchange, lung compliance and hemo. -CXR in the morning -wean FiO2 for O2 sats>92% -continue reglan , resume trophic feeding at 10 cc/hr, will advance if he continues to tolerate tomorrow -Continue Seroquel 50mg qhs to help with agitation. Continue to QTc as he is on multiple medications that can prolong QT -Will discuss with IR to change HD catheter to trialysis catheter, and discontinue femoral CVC, especially in the setting of persistent leukocytosis He is off vasopressors at this time -Antibiotics per ID, discussed with Dr. Meraz. Plan for workup for non-infectious causes of fevers in the ICU. Dopplers were ordered -Can get the MRI today will continue to hold off on spinal tap in view of persistent thrombocytopenia -Target sedation for RASS 0 to -1, continue propofol and intermittent fentanyl dosing, daily SAT - continue HD/UF per nephrology - VAP bundle addressed - continue daily SAT's and SBT assessment as tolerated - prn analgesia per CPOT score - prn supportive blood transfusions to keep HgB > 7.0 - Monitor hemodynamics closely - Transfuse PRBC's to keep HgB > 7g/dL - continue mobility protocols and off loading as tolerated for pressure ulcer prevention - continue to avoid nephrotoxins, adjust all medications for GFR and CRCL - continue GI & VTE prophylaxis ( SCDs and Famotidine) - accuchecks with glycemic control per SSI for target BG of 140-180 mg/dl acutely - continue steroid taper - continue other care per attending / other consultants ... spoke to his brother at length and updated him that the patient is critical but stable and is beginning to make progress CONDITION: CRITICAL PROGNOSIS: GUARDED CODE STATUS: FULL CODE Discussed extensively with RT/RN The high probability of a clinically significant, sudden or life threatening deterioration of the [respiratory, renal, neurologic and Cardiac] systems required my full and direct attention, intervention and personal management. The aggregate critical care time was 35 minutes. This time is in addition to time spent performing reported procedures but includes the following: [x] Data Review and interpretation [x] Patient assessment and monitoring of vital signs [x] Documentation [x] Medication orders and management Subjective Date of service: 03/26/19 Principal diagnosis: Septic Shock; Ac. hypoxemic resp failure; Renzo. PNA; Rhabdo myolysis; RUBEN Interval history: Patient is seen today for: Severe sepsis with shock; Acute hypoxemic respiratory failure; Aspiration pneumonia; Morbid obesity; Rhabdomyolysis; Acute kidney injury; Morbid obesity; Elevated serum transaminases/possible shock liver; Acute encephalopathy (Toxic/Met) Seen and examined at bedside; 24hour events reviewed; nursing and respiratory care staff consulted; no adverse overnight events reported to me; resting peacefully in bed;off vasopressors; remains critically ill on MVS; on propofol; s/p HD [id number] of fluid removed developed tachycardia post HD which responded well to normal saline bolus of 250cc; on amiodarone at 1mcg/hour infusion; On going high residuals, tube feeding on hold Vitals, labs, medications, chart and imaging reviewed. On full MVS AC 25/500/8/40% ABG 7.44/28/109.5/18.8/-4.4 Objective Vital Signs - 12hr 03/25/19 03/25/19 03/26/19 23:31 23:45 00:01 Temperature Pulse Rate 88 89 90 Pulse Rate [ Anterior Bilateral Throughout] Respiratory 34 H 32 H 33 H Rate Respiratory Rate [Anterior Bilateral Throughout] Blood Pressure 131/71 131/71 129/69 O2 Sat by Pulse 100 100 100 Oximetry 03/26/19 03/26/19 03/26/19 00:15 00:25 00:30 Temperature Pulse Rate 90 93 H 91 H Pulse Rate [ Anterior Bilateral Throughout] Respiratory 33 H 30 H Rate Respiratory Rate [Anterior Bilateral Throughout] Blood Pressure 136/67 120/63 122/69 O2 Sat by Pulse 100 100 100 Oximetry 03/26/19 03/26/19 03/26/19 00:45 01:00 01:15 Temperature Pulse Rate 91 H 91 H 92 H Pulse Rate [ Anterior Bilateral Throughout] Respiratory 28 H 31 H 29 H Rate Respiratory Rate [Anterior Bilateral Throughout] Blood Pressure 113/68 107/68 102/69 O2 Sat by Pulse 100 100 100 Oximetry 03/26/19 03/26/19 03/26/19 01:30 01:45 02:00 Temperature Pulse Rate 92 H 93 H 93 H Pulse Rate [ Anterior Bilateral Throughout] Respiratory 33 H 27 H 29 H Rate Respiratory Rate [Anterior Bilateral Throughout] Blood Pressure 107/68 107/65 110/65 O2 Sat by Pulse 100 100 100 Oximetry 03/26/19 03/26/19 03/26/19 02:15 02:24 02:30 Temperature Pulse Rate 93 H 94 H Pulse Rate [ 92 H Anterior Bilateral Throughout] Respiratory 31 H 26 H Rate Respiratory 31 H Rate [Anterior Bilateral Throughout] Blood Pressure 120/63 118/62 O2 Sat by Pulse 100 100 Oximetry 03/26/19 03/26/19 03/26/19 02:45 03:01 03:15 Temperature Pulse Rate 92 H 94 H 94 H Pulse Rate [ Anterior Bilateral Throughout] Respiratory 25 H 25 H 27 H Rate Respiratory Rate [Anterior Bilateral Throughout] Blood Pressure 127/65 116/61 110/61 O2 Sat by Pulse 100 100 100 Oximetry 03/26/19 03/26/19 03/26/19 03:30 03:45 04:00 Temperature Pulse Rate 93 H 93 H 93 H Pulse Rate [ Anterior Bilateral Throughout] Respiratory 19 26 H 19 Rate Respiratory Rate [Anterior Bilateral Throughout] Blood Pressure 110/61 115/56 111/53 O2 Sat by Pulse 100 100 99 Oximetry 03/26/19 03/26/19 03/26/19 04:10 04:15 04:30 Temperature Pulse Rate 92 H 93 H 93 H Pulse Rate [ Anterior Bilateral Throughout] Respiratory 23 21 Rate Respiratory Rate [Anterior Bilateral Throughout] Blood Pressure 130/65 108/58 108/55 O2 Sat by Pulse 100 99 99 Oximetry 03/26/19 03/26/19 03/26/19 04:45 05:00 05:15 Temperature Pulse Rate 93 H 93 H 93 H Pulse Rate [ Anterior Bilateral Throughout] Respiratory 27 H 22 14 Rate Respiratory Rate [Anterior Bilateral Throughout] Blood Pressure 114/55 107/50 106/51 O2 Sat by Pulse 100 100 100 Oximetry 03/26/19 03/26/19 03/26/19 05:30 05:45 06:00 Temperature Pulse Rate 94 H 93 H 93 H Pulse Rate [ Anterior Bilateral Throughout] Respiratory 26 H 25 H 25 H Rate Respiratory Rate [Anterior Bilateral Throughout] Blood Pressure 108/54 103/54 102/54 O2 Sat by Pulse 100 100 100 Oximetry 03/26/19 03/26/19 03/26/19 06:15 06:30 06:46 Temperature Pulse Rate 94 H 92 H 92 H Pulse Rate [ Anterior Bilateral Throughout] Respiratory 29 H 18 21 Rate Respiratory Rate [Anterior Bilateral Throughout] Blood Pressure 111/61 111/61 130/65 O2 Sat by Pulse 99 96 98 Oximetry 03/26/19 03/26/19 03/26/19 07:00 07:15 07:30 Temperature Pulse Rate 92 H 93 H 93 H Pulse Rate [ Anterior Bilateral Throughout] Respiratory 29 H 36 H 20 Rate Respiratory Rate [Anterior Bilateral Throughout] Blood Pressure 103/53 108/56 102/55 O2 Sat by Pulse 100 100 100 Oximetry 03/26/19 03/26/19 03/26/19 07:40 07:42 07:45 Temperature Pulse Rate 91 H 92 H Pulse Rate [ 93 H Anterior Bilateral Throughout] Respiratory 32 H Rate Respiratory 27 H Rate [Anterior Bilateral Throughout] Blood Pressure 102/55 102/59 O2 Sat by Pulse 100 100 Oximetry 03/26/19 08:00 Temperature 101.4 F H Pulse Rate 91 H Pulse Rate [ Anterior Bilateral Throughout] Respiratory 30 H Rate Respiratory Rate [Anterior Bilateral Throughout] Blood Pressure 97/55 O2 Sat by Pulse 86 Oximetry Constitutional: no acute distress, other (middle aged morbidly obese CM, normocephalic with incresed respiratory effort on MVS) Eyes: icteric ENT: oropharynx moist, other (ETT 23-24 cm PEDRO, ulcers over his upper lip) Neck: supple, no lymphadenopathy, no JVD, other (large neck circumference) Effort: mildly labored Ascultation: Bilateral: diminished breath sounds, rales Percussion: Bilateral: not dull Cardiovascular: irregular rhythm, other ( S1,S2) Gastrointestinal: hypoactive bowel sounds, soft, non-tender, non-distended, other (obese) Integumentary: normal, other (blisters with some weeping over the extremities) Extremities: no cyanosis, pink and warm, pulses normal, no ischemia or petechiae Neurologic: pupils equal and round, other (obeys simple commands when SAT was done) Psychiatric: other (inable to assess) CBC and BMP: 03/29/19 06:22 03/29/19 06:22 ABG, PT/INR, D-dimer: ABG POC ABG pH 7.373 (7.35-7.45) 03/24/19 05:09 ABG pH 7.326 pH Units (7.350-7.450) L 03/26/19 04:30 POC ABG pCO2 37.9 (35-45) 03/24/19 05:09 ABG pCO2 36.4 mm Hg 03/26/19 04:30 POC ABG pO2 85 (80-105) 03/24/19 05:09 ABG pO2 137.4 mm Hg (80.0-90.0) H 03/26/19 04:30 POC ABG HCO3 22.0 (22-26 mml/L) 03/24/19 05:09 POC ABG Total CO2 23 (23-27mmol/L) 03/24/19 05:09 POC ABG O2 Sat 96 03/24/19 05:09 ABG O2 Saturation 98.6 % (95.0-99.0) 03/26/19 04:30 PT/INR, D-dimer PT 15.9 Sec. (12.2-14.9) H 03/16/19 17:05 INR 1.30 (0.87-1.13) H 03/16/19 17:05 Abnormal lab findings: Abnormal Labs 03/16/19 03/16/19 03/16/19 15:32 16:03 16:05 WBC 27.0 H RBC 5.55 H Hgb 15.7 H Hct 47.1 H RDW Plt Count 75 L Seg Neuts % (Manual) 85.0 H Lymphocytes % (Manual) 2.0 L Monocytes % (Manual) Nucleated RBC % Seg Neutrophils # Seg Neutrophils # Man 23.0 H Lymphocytes # (Manual) 0.5 L Monocytes # (Manual) PT INR POC ABG pH ABG pH POC ABG pCO2 POC ABG pO2 ABG pO2 ABG HCO3 ABG O2 Saturation ABG Base Excess ABG Hemoglobin Oxyhemoglobin Sodium 127 L Potassium Chloride 87.8 L Carbon Dioxide 17 L BUN 49 H Creatinine 5.8 H Glucose 150 H POC Glucose 118 H Lactic Acid Calcium 6.6 L Phosphorus Magnesium 1.10 L Total Bilirubin Direct Bilirubin AST ALT Alkaline Phosphatase Total Creatine Kinase 84659 H CK-MB (CK-2) Troponin T C-Reactive Protein Total Protein Albumin Triglycerides LDL Cholesterol Direct HDL Cholesterol Free T4 PTH Intact Urine WBC (Auto) Urine Creatinine Salicylates Acetaminophen 03/16/19 03/16/19 03/16/19 16:59 17:05 17:05 WBC RBC Hgb Hct RDW Plt Count Seg Neuts % (Manual) Lymphocytes % (Manual) Monocytes % (Manual) Nucleated RBC % Seg Neutrophils # Seg Neutrophils # Man Lymphocytes # (Manual) Monocytes # (Manual) PT INR POC ABG pH 7.297 L ABG pH POC ABG pCO2 33.0 L POC ABG pO2 ABG pO2 ABG HCO3 ABG O2 Saturation ABG Base Excess ABG Hemoglobin Oxyhemoglobin Sodium Potassium Chloride Carbon Dioxide BUN Creatinine Glucose POC Glucose Lactic Acid Calcium Phosphorus Magnesium Total Bilirubin Direct Bilirubin AST ALT Alkaline Phosphatase Total Creatine Kinase 77954 H CK-MB (CK-2) 83.1 H Troponin T C-Reactive Protein Total Protein Albumin Triglycerides LDL Cholesterol Direct HDL Cholesterol Free T4 0.72 L PTH Intact Urine WBC (Auto) Urine Creatinine Salicylates Acetaminophen 03/16/19 03/16/19 03/16/19 17:05 17:05 17:05 WBC RBC Hgb Hct RDW Plt Count Seg Neuts % (Manual) Lymphocytes % (Manual) Monocytes % (Manual) Nucleated RBC % Seg Neutrophils # Seg Neutrophils # Man Lymphocytes # (Manual) Monocytes # (Manual) PT INR POC ABG pH ABG pH POC ABG pCO2 POC ABG pO2 ABG pO2 ABG HCO3 ABG O2 Saturation ABG Base Excess ABG Hemoglobin Oxyhemoglobin Sodium Potassium Chloride Carbon Dioxide BUN Creatinine Glucose POC Glucose Lactic Acid 5.10 H* Calcium Phosphorus Magnesium Total Bilirubin Direct Bilirubin AST ALT Alkaline Phosphatase Total Creatine Kinase CK-MB (CK-2) Troponin T C-Reactive Protein Total Protein Albumin Triglycerides LDL Cholesterol Direct HDL Cholesterol Free T4 PTH Intact Urine WBC (Auto) Urine Creatinine Salicylates < 0.3 L Acetaminophen < 5.0 L 03/16/19 03/16/19 03/16/19 17:05 17:05 20:35 WBC RBC Hgb Hct RDW Plt Count Seg Neuts % (Manual) Lymphocytes % (Manual) Monocytes % (Manual) Nucleated RBC % Seg Neutrophils # Seg Neutrophils # Man Lymphocytes # (Manual) Monocytes # (Manual) PT 15.9 H INR 1.30 H POC ABG pH ABG pH POC ABG pCO2 POC ABG pO2 ABG pO2 ABG HCO3 ABG O2 Saturation ABG Base Excess ABG Hemoglobin Oxyhemoglobin Sodium Potassium Chloride Carbon Dioxide BUN Creatinine Glucose POC Glucose Lactic Acid 3.30 H* Calcium Phosphorus Magnesium Total Bilirubin 6.20 H Direct Bilirubin 5.9 H AST 800 H ALT 120 H Alkaline Phosphatase Total Creatine Kinase CK-MB (CK-2) Troponin T C-Reactive Protein Total Protein 4.4 L Albumin 2.4 L Triglycerides LDL Cholesterol Direct HDL Cholesterol Free T4 PTH Intact Urine WBC (Auto) Urine Creatinine Salicylates Acetaminophen 03/16/19 03/16/19 03/16/19 21:45 22:32 Unknown WBC RBC Hgb Hct RDW Plt Count Seg Neuts % (Manual) Lymphocytes % (Manual) Monocytes % (Manual) Nucleated RBC % Seg Neutrophils # Seg Neutrophils # Man Lymphocytes # (Manual) Monocytes # (Manual) PT INR POC ABG pH ABG pH POC ABG pCO2 POC ABG pO2 ABG pO2 ABG HCO3 ABG O2 Saturation ABG Base Excess ABG Hemoglobin Oxyhemoglobin Sodium Potassium Chloride Carbon Dioxide BUN Creatinine Glucose POC Glucose Lactic Acid 3.30 H* 3.00 H* Calcium Phosphorus Magnesium Total Bilirubin Direct Bilirubin AST ALT Alkaline Phosphatase Total Creatine Kinase CK-MB (CK-2) Troponin T 0.047 H D C-Reactive Protein Total Protein Albumin Triglycerides 395 H LDL Cholesterol Direct 10 L HDL Cholesterol 7 L Free T4 PTH Intact Urine WBC (Auto) Urine Creatinine Salicylates Acetaminophen 03/17/19 03/17/19 03/17/19 03:45 03:45 03:45 WBC RBC Hgb Hct RDW Plt Count Seg Neuts % (Manual) Lymphocytes % (Manual) Monocytes % (Manual) Nucleated RBC % Seg Neutrophils # Seg Neutrophils # Man Lymphocytes # (Manual) Monocytes # (Manual) PT INR POC ABG pH ABG pH POC ABG pCO2 POC ABG pO2 ABG pO2 ABG HCO3 ABG O2 Saturation ABG Base Excess ABG Hemoglobin Oxyhemoglobin Sodium 131 L Potassium Chloride 88.9 L Carbon Dioxide BUN 53 H Creatinine 7.1 H Glucose POC Glucose Lactic Acid 4.10 H* Calcium 5.4 L* D Phosphorus 7.30 H Magnesium 1.60 L Total Bilirubin 5.90 H Direct Bilirubin AST 801 H ALT 109 H Alkaline Phosphatase Total Creatine Kinase 61184 H 26475 H CK-MB (CK-2) 41.5 H Troponin T 0.054 H C-Reactive Protein Total Protein 4.5 L Albumin 2.0 L Triglycerides LDL Cholesterol Direct HDL Cholesterol Free T4 PTH Intact Urine WBC (Auto) Urine Creatinine Salicylates Acetaminophen 03/17/19 03/17/19 03/17/19 05:47 07:16 07:16 WBC RBC Hgb Hct RDW Plt Count Seg Neuts % (Manual) Lymphocytes % (Manual) Monocytes % (Manual) Nucleated RBC % Seg Neutrophils # Seg Neutrophils # Man Lymphocytes # (Manual) Monocytes # (Manual) PT INR POC ABG pH 7.193 L ABG pH POC ABG pCO2 45.2 H POC ABG pO2 65 L ABG pO2 ABG HCO3 ABG O2 Saturation ABG Base Excess ABG Hemoglobin Oxyhemoglobin Sodium Potassium Chloride Carbon Dioxide BUN Creatinine Glucose POC Glucose Lactic Acid 5.50 H* Calcium Phosphorus Magnesium Total Bilirubin Direct Bilirubin AST ALT Alkaline Phosphatase Total Creatine Kinase 33948 H CK-MB (CK-2) 54.3 H Troponin T 0.058 H C-Reactive Protein Total Protein Albumin Triglycerides LDL Cholesterol Direct HDL Cholesterol Free T4 PTH Intact Urine WBC (Auto) Urine Creatinine Salicylates Acetaminophen 03/17/19 03/17/19 03/17/19 11:52 12:51 13:01 WBC RBC Hgb Hct RDW Plt Count Seg Neuts % (Manual) Lymphocytes % (Manual) Monocytes % (Manual) Nucleated RBC % Seg Neutrophils # Seg Neutrophils # Man Lymphocytes # (Manual) Monocytes # (Manual) PT INR POC ABG pH 7.154 L ABG pH POC ABG pCO2 34.3 L POC ABG pO2 73 L ABG pO2 ABG HCO3 ABG O2 Saturation ABG Base Excess ABG Hemoglobin Oxyhemoglobin Sodium Potassium Chloride Carbon Dioxide BUN Creatinine Glucose POC Glucose 60 L Lactic Acid 8.20 H* Calcium Phosphorus Magnesium Total Bilirubin Direct Bilirubin AST ALT Alkaline Phosphatase Total Creatine Kinase CK-MB (CK-2) Troponin T C-Reactive Protein Total Protein Albumin Triglycerides LDL Cholesterol Direct HDL Cholesterol Free T4 PTH Intact Urine WBC (Auto) Urine Creatinine Salicylates Acetaminophen 03/17/19 03/17/19 03/17/19 14:37 14:37 14:37 WBC 29.3 H RBC Hgb Hct RDW 15.8 H Plt Count 45 L Seg Neuts % (Manual) 81.0 H Lymphocytes % (Manual) 1.0 L Monocytes % (Manual) 15.0 H Nucleated RBC % Seg Neutrophils # Seg Neutrophils # Man 23.7 H Lymphocytes # (Manual) 0.3 L Monocytes # (Manual) 4.4 H PT INR POC ABG pH ABG pH POC ABG pCO2 POC ABG pO2 ABG pO2 ABG HCO3 ABG O2 Saturation ABG Base Excess ABG Hemoglobin Oxyhemoglobin Sodium Potassium Chloride Carbon Dioxide BUN Creatinine Glucose POC Glucose Lactic Acid 4.90 H* Calcium Phosphorus Magnesium Total Bilirubin Direct Bilirubin AST ALT Alkaline Phosphatase Total Creatine Kinase CK-MB (CK-2) Troponin T C-Reactive Protein 24.90 H Total Protein Albumin Triglycerides LDL Cholesterol Direct HDL Cholesterol Free T4 PTH Intact Urine WBC (Auto) Urine Creatinine Salicylates Acetaminophen 03/17/19 03/17/19 03/17/19 16:05 16:05 17:02 WBC RBC Hgb Hct RDW Plt Count Seg Neuts % (Manual) Lymphocytes % (Manual) Monocytes % (Manual) Nucleated RBC % Seg Neutrophils # Seg Neutrophils # Man Lymphocytes # (Manual) Monocytes # (Manual) PT INR POC ABG pH 7.183 L ABG pH POC ABG pCO2 POC ABG pO2 65 L ABG pO2 ABG HCO3 ABG O2 Saturation ABG Base Excess ABG Hemoglobin Oxyhemoglobin Sodium Potassium Chloride Carbon Dioxide BUN Creatinine Glucose POC Glucose Lactic Acid Calcium Phosphorus Magnesium Total Bilirubin Direct Bilirubin AST ALT Alkaline Phosphatase Total Creatine Kinase CK-MB (CK-2) Troponin T C-Reactive Protein Total Protein Albumin Triglycerides LDL Cholesterol Direct HDL Cholesterol Free T4 PTH Intact Urine WBC (Auto) 30.0 H Urine Creatinine 106.6 H Salicylates Acetaminophen 03/18/19 03/18/19 03/18/19 05:12 05:16 05:53 WBC RBC Hgb Hct RDW Plt Count Seg Neuts % (Manual) Lymphocytes % (Manual) Monocytes % (Manual) Nucleated RBC % Seg Neutrophils # Seg Neutrophils # Man Lymphocytes # (Manual) Monocytes # (Manual) PT INR POC ABG pH 7.257 L ABG pH POC ABG pCO2 31.6 L POC ABG pO2 69 L ABG pO2 ABG HCO3 ABG O2 Saturation ABG Base Excess ABG Hemoglobin Oxyhemoglobin Sodium Potassium Chloride Carbon Dioxide BUN Creatinine Glucose POC Glucose 141 H Lactic Acid 5.00 H* Calcium Phosphorus Magnesium Total Bilirubin Direct Bilirubin AST ALT Alkaline Phosphatase Total Creatine Kinase CK-MB (CK-2) Troponin T C-Reactive Protein Total Protein Albumin Triglycerides LDL Cholesterol Direct HDL Cholesterol Free T4 PTH Intact Urine WBC (Auto) Urine Creatinine Salicylates Acetaminophen 03/18/19 03/18/19 03/18/19 06:57 08:40 08:40 WBC 31.7 H RBC Hgb Hct RDW 15.5 H Plt Count 35 L Seg Neuts % (Manual) Lymphocytes % (Manual) Monocytes % (Manual) Nucleated RBC % Seg Neutrophils # Seg Neutrophils # Man Lymphocytes # (Manual) Monocytes # (Manual) PT INR POC ABG pH ABG pH POC ABG pCO2 POC ABG pO2 ABG pO2 ABG HCO3 ABG O2 Saturation ABG Base Excess ABG Hemoglobin Oxyhemoglobin Sodium 132 L Potassium 5.5 H D Chloride 88.5 L Carbon Dioxide 18 L BUN 71 H Creatinine 8.1 H Glucose 205 H POC Glucose Lactic Acid 5.00 H* Calcium 4.1 L* D Phosphorus Magnesium 2.40 H Total Bilirubin 7.50 H Direct Bilirubin AST 1088 H ALT 159 H Alkaline Phosphatase 190 H Total Creatine Kinase 856995 H CK-MB (CK-2) Troponin T C-Reactive Protein Total Protein 4.7 L Albumin 1.8 L Triglycerides LDL Cholesterol Direct HDL Cholesterol Free T4 PTH Intact Urine WBC (Auto) Urine Creatinine Salicylates Acetaminophen 03/18/19 03/18/19 03/18/19 12:33 12:50 13:19 WBC RBC Hgb Hct RDW Plt Count Seg Neuts % (Manual) Lymphocytes % (Manual) Monocytes % (Manual) Nucleated RBC % Seg Neutrophils # Seg Neutrophils # Man Lymphocytes # (Manual) Monocytes # (Manual) PT INR POC ABG pH 7.282 L ABG pH POC ABG pCO2 POC ABG pO2 67 L ABG pO2 ABG HCO3 ABG O2 Saturation ABG Base Excess ABG Hemoglobin Oxyhemoglobin Sodium Potassium Chloride Carbon Dioxide BUN Creatinine Glucose POC Glucose 129 H Lactic Acid 3.30 H* Calcium Phosphorus Magnesium Total Bilirubin Direct Bilirubin AST ALT Alkaline Phosphatase Total Creatine Kinase CK-MB (CK-2) Troponin T C-Reactive Protein Total Protein Albumin Triglycerides LDL Cholesterol Direct HDL Cholesterol Free T4 PTH Intact Urine WBC (Auto) Urine Creatinine Salicylates Acetaminophen 03/18/19 03/18/19 03/18/19 13:19 16:50 18:11 WBC RBC Hgb Hct RDW Plt Count Seg Neuts % (Manual) Lymphocytes % (Manual) Monocytes % (Manual) Nucleated RBC % Seg Neutrophils # Seg Neutrophils # Man Lymphocytes # (Manual) Monocytes # (Manual) PT INR POC ABG pH ABG pH POC ABG pCO2 POC ABG pO2 59 L ABG pO2 ABG HCO3 ABG O2 Saturation ABG Base Excess ABG Hemoglobin Oxyhemoglobin Sodium Potassium Chloride Carbon Dioxide BUN Creatinine Glucose POC Glucose 151 H Lactic Acid Calcium 4.2 L* Phosphorus Magnesium Total Bilirubin Direct Bilirubin AST ALT Alkaline Phosphatase Total Creatine Kinase 093052 H CK-MB (CK-2) Troponin T C-Reactive Protein Total Protein Albumin Triglycerides LDL Cholesterol Direct HDL Cholesterol Free T4 PTH Intact Urine WBC (Auto) Urine Creatinine Salicylates Acetaminophen 03/18/19 03/18/19 03/19/19 18:20 23:39 01:42 WBC RBC Hgb Hct RDW Plt Count Seg Neuts % (Manual) Lymphocytes % (Manual) Monocytes % (Manual) Nucleated RBC % Seg Neutrophils # Seg Neutrophils # Man Lymphocytes # (Manual) Monocytes # (Manual) PT INR POC ABG pH 7.345 L ABG pH 7.285 L POC ABG pCO2 POC ABG pO2 59 L ABG pO2 44.0 L ABG HCO3 ABG O2 Saturation 70.9 L ABG Base Excess -5.7 L ABG Hemoglobin 11.9 L Oxyhemoglobin 69.6 L Sodium Potassium Chloride Carbon Dioxide BUN Creatinine Glucose POC Glucose 152 H Lactic Acid Calcium Phosphorus Magnesium Total Bilirubin Direct Bilirubin AST ALT Alkaline Phosphatase Total Creatine Kinase CK-MB (CK-2) Troponin T C-Reactive Protein Total Protein Albumin Triglycerides LDL Cholesterol Direct HDL Cholesterol Free T4 PTH Intact Urine WBC (Auto) Urine Creatinine Salicylates Acetaminophen 03/19/19 03/19/19 03/19/19 04:00 04:00 05:35 WBC 36.5 H RBC Hgb Hct RDW 15.8 H Plt Count 35 L Seg Neuts % (Manual) Lymphocytes % (Manual) Monocytes % (Manual) Nucleated RBC % Seg Neutrophils # Seg Neutrophils # Man Lymphocytes # (Manual) Monocytes # (Manual) PT INR POC ABG pH ABG pH 7.265 L POC ABG pCO2 POC ABG pO2 ABG pO2 35.4 L* ABG HCO3 ABG O2 Saturation 54.4 L ABG Base Excess -6.7 L ABG Hemoglobin 12.9 L Oxyhemoglobin 53.4 L Sodium 132 L Potassium 5.7 H Chloride 89.8 L Carbon Dioxide 19 L BUN 62 H Creatinine 6.4 H Glucose 151 H POC Glucose Lactic Acid Calcium 5.2 L* D Phosphorus Magnesium Total Bilirubin 7.80 H Direct Bilirubin AST 682 H ALT 130 H Alkaline Phosphatase 167 H Total Creatine Kinase CK-MB (CK-2) Troponin T C-Reactive Protein Total Protein 4.8 L Albumin 2.3 L Triglycerides LDL Cholesterol Direct HDL Cholesterol Free T4 PTH Intact Urine WBC (Auto) Urine Creatinine Salicylates Acetaminophen 03/19/19 03/19/19 03/19/19 05:49 09:16 09:50 WBC RBC Hgb Hct RDW Plt Count Seg Neuts % (Manual) Lymphocytes % (Manual) Monocytes % (Manual) Nucleated RBC % Seg Neutrophils # Seg Neutrophils # Man Lymphocytes # (Manual) Monocytes # (Manual) PT INR POC ABG pH 7.222 L ABG pH POC ABG pCO2 56.6 H POC ABG pO2 ABG pO2 ABG HCO3 ABG O2 Saturation ABG Base Excess ABG Hemoglobin Oxyhemoglobin Sodium Potassium Chloride Carbon Dioxide BUN Creatinine Glucose POC Glucose 154 H Lactic Acid 2.70 H* Calcium Phosphorus Magnesium Total Bilirubin Direct Bilirubin AST ALT Alkaline Phosphatase Total Creatine Kinase CK-MB (CK-2) Troponin T C-Reactive Protein Total Protein Albumin Triglycerides LDL Cholesterol Direct HDL Cholesterol Free T4 PTH Intact Urine WBC (Auto) Urine Creatinine Salicylates Acetaminophen 03/19/19 03/19/19 03/19/19 09:50 11:28 17:58 WBC RBC Hgb Hct RDW Plt Count Seg Neuts % (Manual) Lymphocytes % (Manual) Monocytes % (Manual) Nucleated RBC % Seg Neutrophils # Seg Neutrophils # Man Lymphocytes # (Manual) Monocytes # (Manual) PT INR POC ABG pH 7.250 L ABG pH POC ABG pCO2 52.6 H POC ABG pO2 ABG pO2 ABG HCO3 ABG O2 Saturation ABG Base Excess ABG Hemoglobin Oxyhemoglobin Sodium Potassium Chloride Carbon Dioxide BUN Creatinine Glucose POC Glucose 160 H Lactic Acid Calcium Phosphorus Magnesium Total Bilirubin Direct Bilirubin AST ALT Alkaline Phosphatase Total Creatine Kinase 77549 H CK-MB (CK-2) Troponin T C-Reactive Protein Total Protein Albumin Triglycerides LDL Cholesterol Direct HDL Cholesterol Free T4 PTH Intact Urine WBC (Auto) Urine Creatinine Salicylates Acetaminophen 03/19/19 03/19/19 03/20/19 19:48 21:03 02:16 WBC RBC Hgb Hct RDW Plt Count Seg Neuts % (Manual) Lymphocytes % (Manual) Monocytes % (Manual) Nucleated RBC % Seg Neutrophils # Seg Neutrophils # Man Lymphocytes # (Manual) Monocytes # (Manual) PT INR POC ABG pH 7.279 L ABG pH POC ABG pCO2 50.3 H POC ABG pO2 129 H ABG pO2 ABG HCO3 ABG O2 Saturation ABG Base Excess ABG Hemoglobin Oxyhemoglobin Sodium Potassium Chloride Carbon Dioxide BUN Creatinine Glucose POC Glucose 119 H 119 H Lactic Acid Calcium Phosphorus Magnesium Total Bilirubin Direct Bilirubin AST ALT Alkaline Phosphatase Total Creatine Kinase CK-MB (CK-2) Troponin T C-Reactive Protein Total Protein Albumin Triglycerides LDL Cholesterol Direct HDL Cholesterol Free T4 PTH Intact Urine WBC (Auto) Urine Creatinine Salicylates Acetaminophen 03/20/19 03/20/19 03/20/19 04:23 05:05 09:30 WBC 36.3 H RBC Hgb Hct RDW 15.5 H Plt Count 29 L Seg Neuts % (Manual) Lymphocytes % (Manual) Monocytes % (Manual) Nucleated RBC % Seg Neutrophils # Seg Neutrophils # Man Lymphocytes # (Manual) Monocytes # (Manual) PT INR POC ABG pH ABG pH POC ABG pCO2 POC ABG pO2 280 H ABG pO2 ABG HCO3 ABG O2 Saturation ABG Base Excess ABG Hemoglobin Oxyhemoglobin Sodium Potassium Chloride Carbon Dioxide BUN Creatinine Glucose POC Glucose 115 H Lactic Acid Calcium Phosphorus Magnesium Total Bilirubin Direct Bilirubin AST ALT Alkaline Phosphatase Total Creatine Kinase CK-MB (CK-2) Troponin T C-Reactive Protein Total Protein Albumin Triglycerides LDL Cholesterol Direct HDL Cholesterol Free T4 PTH Intact Urine WBC (Auto) Urine Creatinine Salicylates Acetaminophen 03/20/19 03/20/19 03/20/19 09:30 09:30 11:34 WBC RBC Hgb Hct RDW Plt Count Seg Neuts % (Manual) Lymphocytes % (Manual) Monocytes % (Manual) Nucleated RBC % Seg Neutrophils # Seg Neutrophils # Man Lymphocytes # (Manual) Monocytes # (Manual) PT INR POC ABG pH ABG pH POC ABG pCO2 POC ABG pO2 ABG pO2 ABG HCO3 ABG O2 Saturation ABG Base Excess ABG Hemoglobin Oxyhemoglobin Sodium 131 L Potassium Chloride 92.3 L Carbon Dioxide 20 L BUN 68 H Creatinine 6.1 H Glucose 164 H POC Glucose 141 H Lactic Acid Calcium 5.3 L* Phosphorus Magnesium Total Bilirubin 9.50 H Direct Bilirubin AST 381 H ALT 116 H Alkaline Phosphatase 255 H Total Creatine Kinase 57309 H CK-MB (CK-2) Troponin T C-Reactive Protein Total Protein 5.1 L Albumin 2.3 L Triglycerides LDL Cholesterol Direct HDL Cholesterol Free T4 PTH Intact Urine WBC (Auto) Urine Creatinine Salicylates Acetaminophen 03/20/19 03/20/19 03/20/19 14:41 14:45 18:50 WBC RBC Hgb Hct RDW Plt Count Seg Neuts % (Manual) Lymphocytes % (Manual) Monocytes % (Manual) Nucleated RBC % Seg Neutrophils # Seg Neutrophils # Man Lymphocytes # (Manual) Monocytes # (Manual) PT INR POC ABG pH ABG pH POC ABG pCO2 POC ABG pO2 ABG pO2 ABG HCO3 ABG O2 Saturation ABG Base Excess ABG Hemoglobin Oxyhemoglobin Sodium Potassium Chloride Carbon Dioxide BUN Creatinine Glucose POC Glucose 117 H Lactic Acid 2.90 H* Calcium Phosphorus Magnesium Total Bilirubin Direct Bilirubin AST ALT Alkaline Phosphatase Total Creatine Kinase CK-MB (CK-2) Troponin T C-Reactive Protein 13.30 H Total Protein Albumin Triglycerides LDL Cholesterol Direct HDL Cholesterol Free T4 PTH Intact Urine WBC (Auto) Urine Creatinine Salicylates Acetaminophen 03/20/19 03/21/19 03/21/19 21:55 04:26 04:26 WBC 37.8 H RBC Hgb Hct RDW 15.4 H Plt Count 36 L Seg Neuts % (Manual) 93.0 H Lymphocytes % (Manual) 3.0 L Monocytes % (Manual) Nucleated RBC % 1.0 H Seg Neutrophils # 34.6 H Seg Neutrophils # Man 35.2 H Lymphocytes # (Manual) 1.1 L Monocytes # (Manual) PT INR POC ABG pH ABG pH POC ABG pCO2 POC ABG pO2 ABG pO2 ABG HCO3 ABG O2 Saturation ABG Base Excess ABG Hemoglobin Oxyhemoglobin Sodium 131 L Potassium Chloride 90.7 L Carbon Dioxide 21 L BUN 69 H Creatinine 5.7 H Glucose 170 H POC Glucose 128 H Lactic Acid Calcium 6.1 L D Phosphorus Magnesium Total Bilirubin 9.50 H Direct Bilirubin AST 308 H ALT 124 H Alkaline Phosphatase 327 H Total Creatine Kinase 78277 H CK-MB (CK-2) Troponin T C-Reactive Protein Total Protein 5.7 L Albumin 2.6 L Triglycerides LDL Cholesterol Direct HDL Cholesterol Free T4 PTH Intact Urine WBC (Auto) Urine Creatinine Salicylates Acetaminophen 03/21/19 03/21/19 03/21/19 05:17 05:39 08:29 WBC RBC Hgb Hct RDW Plt Count Seg Neuts % (Manual) Lymphocytes % (Manual) Monocytes % (Manual) Nucleated RBC % Seg Neutrophils # Seg Neutrophils # Man Lymphocytes # (Manual) Monocytes # (Manual) PT INR POC ABG pH ABG pH POC ABG pCO2 POC ABG pO2 209 H ABG pO2 ABG HCO3 ABG O2 Saturation ABG Base Excess ABG Hemoglobin Oxyhemoglobin Sodium Potassium Chloride Carbon Dioxide BUN Creatinine Glucose POC Glucose 145 H Lactic Acid Calcium Phosphorus Magnesium Total Bilirubin Direct Bilirubin AST ALT Alkaline Phosphatase Total Creatine Kinase 72934 H CK-MB (CK-2) Troponin T C-Reactive Protein Total Protein Albumin Triglycerides LDL Cholesterol Direct HDL Cholesterol Free T4 PTH Intact Urine WBC (Auto) Urine Creatinine Salicylates Acetaminophen 03/21/19 03/21/19 03/21/19 08:29 11:43 12:00 WBC RBC Hgb Hct RDW Plt Count Seg Neuts % (Manual) Lymphocytes % (Manual) Monocytes % (Manual) Nucleated RBC % Seg Neutrophils # Seg Neutrophils # Man Lymphocytes # (Manual) Monocytes # (Manual) PT INR POC ABG pH ABG pH POC ABG pCO2 POC ABG pO2 ABG pO2 ABG HCO3 ABG O2 Saturation ABG Base Excess ABG Hemoglobin Oxyhemoglobin Sodium Potassium Chloride Carbon Dioxide BUN Creatinine Glucose POC Glucose 123 H Lactic Acid 2.60 H* 2.20 H* Calcium Phosphorus Magnesium Total Bilirubin Direct Bilirubin AST ALT Alkaline Phosphatase Total Creatine Kinase CK-MB (CK-2) Troponin T C-Reactive Protein Total Protein Albumin Triglycerides LDL Cholesterol Direct HDL Cholesterol Free T4 PTH Intact Urine WBC (Auto) Urine Creatinine Salicylates Acetaminophen 03/21/19 03/21/19 03/21/19 14:11 18:28 19:32 WBC RBC Hgb Hct RDW Plt Count Seg Neuts % (Manual) Lymphocytes % (Manual) Monocytes % (Manual) Nucleated RBC % Seg Neutrophils # Seg Neutrophils # Man Lymphocytes # (Manual) Monocytes # (Manual) PT INR POC ABG pH 7.293 L ABG pH POC ABG pCO2 POC ABG pO2 ABG pO2 ABG HCO3 ABG O2 Saturation ABG Base Excess ABG Hemoglobin Oxyhemoglobin Sodium Potassium Chloride Carbon Dioxide BUN Creatinine Glucose POC Glucose 153 H Lactic Acid 2.10 H* Calcium Phosphorus Magnesium Total Bilirubin Direct Bilirubin AST ALT Alkaline Phosphatase Total Creatine Kinase CK-MB (CK-2) Troponin T C-Reactive Protein Total Protein Albumin Triglycerides LDL Cholesterol Direct HDL Cholesterol Free T4 PTH Intact Urine WBC (Auto) Urine Creatinine Salicylates Acetaminophen 03/21/19 03/22/19 03/22/19 23:38 05:08 05:51 WBC RBC Hgb Hct RDW Plt Count Seg Neuts % (Manual) Lymphocytes % (Manual) Monocytes % (Manual) Nucleated RBC % Seg Neutrophils # Seg Neutrophils # Man Lymphocytes # (Manual) Monocytes # (Manual) PT INR POC ABG pH 7.283 L ABG pH POC ABG pCO2 POC ABG pO2 53 L ABG pO2 ABG HCO3 ABG O2 Saturation ABG Base Excess ABG Hemoglobin Oxyhemoglobin Sodium Potassium Chloride Carbon Dioxide BUN Creatinine Glucose POC Glucose 149 H 131 H Lactic Acid Calcium Phosphorus Magnesium Total Bilirubin Direct Bilirubin AST ALT Alkaline Phosphatase Total Creatine Kinase CK-MB (CK-2) Troponin T C-Reactive Protein Total Protein Albumin Triglycerides LDL Cholesterol Direct HDL Cholesterol Free T4 PTH Intact Urine WBC (Auto) Urine Creatinine Salicylates Acetaminophen 03/22/19 03/22/19 03/22/19 08:00 08:00 18:19 WBC 36.7 H RBC Hgb 11.0 L Hct 33.5 L RDW 15.5 H Plt Count 43 L Seg Neuts % (Manual) 87.0 H Lymphocytes % (Manual) 7.0 L Monocytes % (Manual) Nucleated RBC % Seg Neutrophils # Seg Neutrophils # Man 31.9 H Lymphocytes # (Manual) Monocytes # (Manual) PT INR POC ABG pH ABG pH POC ABG pCO2 46.4 H POC ABG pO2 108 H ABG pO2 ABG HCO3 ABG O2 Saturation ABG Base Excess ABG Hemoglobin Oxyhemoglobin Sodium 132 L Potassium 5.6 H Chloride 89.6 L Carbon Dioxide 20 L BUN 101 H Creatinine 7.4 H Glucose 124 H POC Glucose Lactic Acid Calcium 5.2 L* Phosphorus Magnesium Total Bilirubin 2.80 H Direct Bilirubin AST 119 H ALT 86 H Alkaline Phosphatase 245 H Total Creatine Kinase CK-MB (CK-2) Troponin T C-Reactive Protein Total Protein 5.6 L Albumin 2.5 L Triglycerides LDL Cholesterol Direct HDL Cholesterol Free T4 PTH Intact Urine WBC (Auto) Urine Creatinine Salicylates Acetaminophen 03/22/19 03/23/19 03/23/19 20:37 04:49 05:28 WBC 35.9 H RBC Hgb 10.8 L Hct 33.2 L RDW 15.5 H Plt Count 49 L Seg Neuts % (Manual) 81.0 H Lymphocytes % (Manual) 3.5 L Monocytes % (Manual) Nucleated RBC % Seg Neutrophils # Seg Neutrophils # Man 29.1 H Lymphocytes # (Manual) Monocytes # (Manual) 1.4 H PT INR POC ABG pH 7.296 L ABG pH POC ABG pCO2 46.2 H POC ABG pO2 ABG pO2 ABG HCO3 ABG O2 Saturation ABG Base Excess ABG Hemoglobin Oxyhemoglobin Sodium 129 L Potassium 5.2 H Chloride 91.1 L Carbon Dioxide BUN 91 H Creatinine 6.6 H Glucose 190 H POC Glucose Lactic Acid Calcium 5.3 L* Phosphorus Magnesium Total Bilirubin 1.80 H Direct Bilirubin AST 80 H ALT 62 H Alkaline Phosphatase 209 H Total Creatine Kinase 9758 H CK-MB (CK-2) Troponin T C-Reactive Protein Total Protein 5.2 L Albumin 2.2 L Triglycerides LDL Cholesterol Direct HDL Cholesterol Free T4 PTH Intact Urine WBC (Auto) Urine Creatinine Salicylates Acetaminophen 03/23/19 03/23/19 03/23/19 05:28 05:31 11:33 WBC 29.7 H RBC 3.59 L Hgb 10.1 L Hct 31.1 L RDW 15.4 H Plt Count 47 L Seg Neuts % (Manual) 89.0 H Lymphocytes % (Manual) 6.0 L Monocytes % (Manual) Nucleated RBC % 1.0 H Seg Neutrophils # Seg Neutrophils # Man 26.4 H Lymphocytes # (Manual) Monocytes # (Manual) PT INR POC ABG pH ABG pH POC ABG pCO2 POC ABG pO2 ABG pO2 ABG HCO3 ABG O2 Saturation ABG Base Excess ABG Hemoglobin Oxyhemoglobin Sodium Potassium Chloride Carbon Dioxide BUN Creatinine Glucose POC Glucose 122 H 113 H Lactic Acid Calcium Phosphorus Magnesium Total Bilirubin Direct Bilirubin AST ALT Alkaline Phosphatase Total Creatine Kinase CK-MB (CK-2) Troponin T C-Reactive Protein Total Protein Albumin Triglycerides LDL Cholesterol Direct HDL Cholesterol Free T4 PTH Intact Urine WBC (Auto) Urine Creatinine Salicylates Acetaminophen 03/23/19 03/24/19 03/24/19 17:47 00:00 04:50 WBC 35.0 H RBC Hgb 10.4 L Hct 32.4 L RDW Plt Count 60 L Seg Neuts % (Manual) 93.0 H Lymphocytes % (Manual) 5.0 L Monocytes % (Manual) Nucleated RBC % 7.0 H Seg Neutrophils # Seg Neutrophils # Man 32.6 H Lymphocytes # (Manual) Monocytes # (Manual) PT INR POC ABG pH ABG pH POC ABG pCO2 POC ABG pO2 ABG pO2 ABG HCO3 ABG O2 Saturation ABG Base Excess ABG Hemoglobin Oxyhemoglobin Sodium Potassium Chloride Carbon Dioxide BUN Creatinine Glucose POC Glucose 111 H 108 H Lactic Acid Calcium Phosphorus Magnesium Total Bilirubin Direct Bilirubin AST ALT Alkaline Phosphatase Total Creatine Kinase CK-MB (CK-2) Troponin T C-Reactive Protein Total Protein Albumin Triglycerides LDL Cholesterol Direct HDL Cholesterol Free T4 PTH Intact Urine WBC (Auto) Urine Creatinine Salicylates Acetaminophen 03/24/19 03/24/19 03/24/19 04:50 05:06 12:55 WBC RBC Hgb Hct RDW Plt Count Seg Neuts % (Manual) Lymphocytes % (Manual) Monocytes % (Manual) Nucleated RBC % Seg Neutrophils # Seg Neutrophils # Man Lymphocytes # (Manual) Monocytes # (Manual) PT INR POC ABG pH ABG pH POC ABG pCO2 POC ABG pO2 ABG pO2 ABG HCO3 ABG O2 Saturation ABG Base Excess ABG Hemoglobin Oxyhemoglobin Sodium 134 L Potassium 5.1 H Chloride 95.3 L Carbon Dioxide 21 L BUN 85 H Creatinine 6.4 H Glucose 109 H POC Glucose 112 H 110 H Lactic Acid Calcium 5.8 L* Phosphorus Magnesium Total Bilirubin Direct Bilirubin AST ALT Alkaline Phosphatase Total Creatine Kinase 5747 H CK-MB (CK-2) Troponin T C-Reactive Protein Total Protein Albumin Triglycerides LDL Cholesterol Direct HDL Cholesterol Free T4 PTH Intact Urine WBC (Auto) Urine Creatinine Salicylates Acetaminophen 03/24/19 03/25/19 03/25/19 23:29 05:00 05:00 WBC RBC Hgb Hct RDW Plt Count Seg Neuts % (Manual) Lymphocytes % (Manual) Monocytes % (Manual) Nucleated RBC % Seg Neutrophils # Seg Neutrophils # Man Lymphocytes # (Manual) Monocytes # (Manual) PT INR POC ABG pH ABG pH POC ABG pCO2 POC ABG pO2 ABG pO2 ABG HCO3 ABG O2 Saturation ABG Base Excess ABG Hemoglobin Oxyhemoglobin Sodium 133 L Potassium Chloride 94.0 L Carbon Dioxide 21 L BUN 81 H Creatinine 6.4 H Glucose POC Glucose 109 H Lactic Acid Calcium 5.5 L* Phosphorus Magnesium Total Bilirubin Direct Bilirubin AST 80 H ALT Alkaline Phosphatase 202 H Total Creatine Kinase 3589 H CK-MB (CK-2) Troponin T C-Reactive Protein Total Protein 5.3 L Albumin 2.4 L Triglycerides LDL Cholesterol Direct HDL Cholesterol Free T4 PTH Intact 329.9 H Urine WBC (Auto) Urine Creatinine Salicylates Acetaminophen 03/25/19 03/25/19 03/26/19 05:00 06:30 04:30 WBC 23.3 H RBC 3.61 L Hgb 10.2 L Hct 31.2 L RDW Plt Count 57 L Seg Neuts % (Manual) 92.0 H Lymphocytes % (Manual) 6.0 L Monocytes % (Manual) Nucleated RBC % Seg Neutrophils # Seg Neutrophils # Man 21.4 H Lymphocytes # (Manual) Monocytes # (Manual) PT INR POC ABG pH ABG pH 7.326 L POC ABG pCO2 POC ABG pO2 ABG pO2 109.5 H 137.4 H ABG HCO3 18.8 L 18.6 L ABG O2 Saturation ABG Base Excess -4.4 L -6.8 L ABG Hemoglobin 10.1 L 9.9 L Oxyhemoglobin Sodium Potassium Chloride Carbon Dioxide BUN Creatinine Glucose POC Glucose Lactic Acid Calcium Phosphorus Magnesium Total Bilirubin Direct Bilirubin AST ALT Alkaline Phosphatase Total Creatine Kinase CK-MB (CK-2) Troponin T C-Reactive Protein Total Protein Albumin Triglycerides LDL Cholesterol Direct HDL Cholesterol Free T4 PTH Intact Urine WBC (Auto) Urine Creatinine Salicylates Acetaminophen 03/26/19 03/26/19 Unknown Unknown WBC 19.5 H RBC 3.44 L Hgb 9.8 L Hct 29.9 L RDW Plt Count 85 L Seg Neuts % (Manual) 95.0 H Lymphocytes % (Manual) 3.0 L Monocytes % (Manual) Nucleated RBC % Seg Neutrophils # Seg Neutrophils # Man 18.5 H Lymphocytes # (Manual) 0.6 L Monocytes # (Manual) PT INR POC ABG pH ABG pH POC ABG pCO2 POC ABG pO2 ABG pO2 ABG HCO3 ABG O2 Saturation ABG Base Excess ABG Hemoglobin Oxyhemoglobin Sodium 135 L Potassium 5.2 H D Chloride 92.2 L Carbon Dioxide 18 L BUN 109 H Creatinine 8.5 H Glucose 117 H POC Glucose Lactic Acid Calcium 4.5 L* D Phosphorus Magnesium Total Bilirubin Direct Bilirubin AST ALT Alkaline Phosphatase Total Creatine Kinase 4527 H CK-MB (CK-2) Troponin T C-Reactive Protein Total Protein Albumin Triglycerides LDL Cholesterol Direct HDL Cholesterol Free T4 PTH Intact Urine WBC (Auto) Urine Creatinine Salicylates Acetaminophen Chest x-ray: image reviewed Allied health notes reviewed: RT
--- NOTE | 2019-03-26 11:49 | Progress Note ---
Assessment and Plan Assessment and plan: 43-year-old man with history of GERD and obesity who presented to the hospital altered mental status, he was visiting from [place] and brought in by his friend. He has been feeling ill for a few days and have left eye discharge and there was mention of right axilla/patient was more lethargic, had trouble breathing and then suddenly could not walk on his own. When he came to the ER was unable to speak or follow commands, in the ER he was found to have SVT with heart rate in the 250s. The patient was shocks and medicated. He became more confused and had trouble protecting his airway, he was then intubated Vitals reviewed, tachycardic in the 90s, T-max 101.8 Blood pressure as low as 86/38 Labs, white count 19.5, hemoglobin 9.8, potassium 5.2, sodium 135, creatinine 8.5, calcium 4.5, CK 4527 -[facility] Status post, cardiopulmonary arrest, status post shock for SVT in 250s after which she deteriorated into polymorphic V. tach for which she was shocked again. And then intubated in the ER Paroxysmal A. fib with RVR Torsade sparkle points/ventricular tachycardia EF 40% * Cardiology input appreciated, continue amiodarone drip, no beta-adela or CHRISTIN given hypotension, will need ischemic cardiac stratification when improved Septic shock with multiorgan failure, off pressors for 48 hours Aspiration pneumonia Brain MRI ordered, follow-up blood cultures, venous ultrasound to rule out DVT, remove femoral line when feasible, LP awaited due to low platelets. Continue antibiotics, tickborne serologies pending, prognosis guarded Acute kidney injury, rhabdomyolysis, hyperkalemia Continue dialysis per nephrology Acute hypoxic respiratory failure on mechanical ventilator greater than 96 hours Continue ventilator, continue to attempt to wean per the accounts payable processor Presume ARDS Profound hypocalcemia Being repleted, likely related to renal failure Acute Metabolic Encephalopathy Severe metabolic acidosis, rhabdomyolysis Acute Respiratory Failure with Hypoxia Advanced care planning, family opting against DNR, wants all done. Will like a call if patient codes as they may opt for limited code The high probability of a clinically significant, sudden or life threatening deterioration of the [multiple organs] system(s) required my full and direct attention, intervention and personal management. The aggregate critical care time was [45] minutes. This time is in addition to time spent performing reported procedures but includes the following: [x] Data Review and interpretation [x] Patient assessment and monitoring of vital signs [x] Documentation [x] Medication orders and management History Interval history: Continues to have fever, no seizure, no agitation, no vomiting, no melena, no h emoptysis or hematemesis Remains intubated and sedated Hospitalist Physical - Physical exam Narrative exam: General.: Appears ill, intubated HEENT: Moist mucous membranes, extraocular muscles intact, no lymphadenopathy Neck: supple Cardiac: S1-S2 heard Lungs: Decreased breath sounds, ventilated breath sounds Abdomen: soft , nontender, nondistended, bowel sounds positive Extremities: no edema clubbing or cyanosis Skin: no rash or lesions Neurologic: Intubated and sedated Psych: Intubated and sedated - Constitutional Vitals: Temp Pulse Resp BP Pulse Ox 101.4 F H 90 26 H 97/46 100 03/26/19 08:00 03/26/19 11:35 03/26/19 11:35 03/26/19 11:34 03/26/19 11:34 General appearance: Present: severe distress, obese Results - Labs CBC & Chem 7: 03/29/19 06:22 03/29/19 06:22 Labs: Laboratory Last Values WBC 19.5 K/mm3 (4.5-11.0) H 03/26/19 Unknown RBC 3.44 M/mm3 (3.65-5.03) L 03/26/19 Unknown Hgb 9.8 gm/dl (11.8-15.2) L 03/26/19 Unknown Hct 29.9 % (35.5-45.6) L 03/26/19 Unknown MCV 87 fl (84-94) 03/26/19 Unknown MCH 29 pg (28-32) 03/26/19 Unknown MCHC 33 % (32-34) 03/26/19 Unknown RDW 14.8 % (13.2-15.2) 03/26/19 Unknown Plt Count 85 K/mm3 (140-440) L 03/26/19 Unknown [place] % (Auto) 1.6 % (0.0-7.3) 03/21/19 04:26 [place] # 0.6 K/mm3 (0.0-0.8) 03/21/19 04:26 Add Manual Diff Complete 03/26/19 Unknown Total Counted 100 03/26/19 Unknown Seg Neutrophils % Social Work Coordinator 03/26/19 Unknown Seg Neuts % (Manual) 95.0 % (40.0-70.0) H 03/26/19 Unknown Band Neutrophils % 0 % 03/26/19 Unknown Lymphocytes % (Manual) 3.0 % (13.4-35.0) L 03/26/19 Unknown Reactive Lymphs % (Man) 0 % 03/26/19 Unknown Monocytes % (Manual) 1.0 % (0.0-7.3) 03/26/19 Unknown Eosinophils % (Manual) 0 % (0.0-4.3) 03/26/19 Unknown Basophils % (Manual) 0 % (0.0-1.8) 03/26/19 Unknown Metamyelocytes % 1.0 % 03/26/19 Unknown Myelocytes % 0 % 03/26/19 Unknown Promyelocytes % 0 % 03/26/19 Unknown Blast Cells % 0 % 03/26/19 Unknown Nucleated RBC % Not Reportable 03/26/19 Unknown Seg Neutrophils # 34.6 K/mm3 (1.8-7.7) H 03/21/19 04:26 Seg Neutrophils # Man 18.5 K/mm3 (1.8-7.7) H 03/26/19 Unknown Band Neutrophils # 0.0 K/mm3 03/26/19 Unknown Lymphocytes # (Manual) 0.6 K/mm3 (1.2-5.4) L 03/26/19 Unknown Abs React Lymphs (Man) 0.0 K/mm3 03/26/19 Unknown Monocytes # (Manual) 0.2 K/mm3 (0.0-0.8) 03/26/19 Unknown Eosinophils # (Manual) 0.0 K/mm3 (0.0-0.4) 03/26/19 Unknown Basophils # (Manual) 0.0 K/mm3 (0.0-0.1) 03/26/19 Unknown Metamyelocytes # 0.2 K/mm3 03/26/19 Unknown Myelocytes # 0.0 K/mm3 03/26/19 Unknown Promyelocytes # 0.0 K/mm3 03/26/19 Unknown Blast Cells # 0.0 K/mm3 03/26/19 Unknown WBC Morphology Not Reportable 03/26/19 Unknown Hypersegmented Neuts Not Reportable 03/26/19 Unknown Hyposegmented Neuts Not Reportable 03/26/19 Unknown Hypogranular Neuts Not Reportable 03/26/19 Unknown Smudge Cells Not Reportable 03/26/19 Unknown Toxic Granulation Not Reportable 03/26/19 Unknown Toxic Vacuolation Not Reportable 03/26/19 Unknown Dohle Bodies Not Reportable 03/26/19 Unknown Pelger-Huet Anomaly Not Reportable 03/26/19 Unknown Joyce Rods Not Reportable 03/26/19 Unknown Platelet Estimate Consistent w auto 03/26/19 Unknown Clumped Platelets Not Reportable 03/26/19 Unknown Plt Clumps, EDTA Not Reportable 03/26/19 Unknown Large Platelets Rare 03/26/19 Unknown Giant Platelets Not Reportable 03/26/19 Unknown Platelet Satelliting Not Reportable 03/26/19 Unknown Plt Morphology Comment Not Reportable 03/26/19 Unknown RBC Morphology Not Reportable 03/26/19 Unknown Dimorphic RBCs Not Reportable 03/26/19 Unknown Polychromasia Few 03/26/19 Unknown Hypochromasia Not Reportable 03/26/19 Unknown Poikilocytosis Not Reportable 03/26/19 Unknown Anisocytosis Few 03/26/19 Unknown Microcytosis Not Reportable 03/26/19 Unknown Macrocytosis Few 03/26/19 Unknown Spherocytes Not Reportable 03/26/19 Unknown Pappenheimer Bodies Not Reportable 03/26/19 Unknown Sickle Cells Not Reportable 03/26/19 Unknown Target Cells Not Reportable 03/26/19 Unknown Tear Drop Cells Not Reportable 03/26/19 Unknown Ovalocytes Not Reportable 03/26/19 Unknown Stomatocytes Few 03/26/19 Unknown Helmet Cells Not Reportable 03/26/19 Unknown Shrestha-Crowley Bodies Not Reportable 03/26/19 Unknown [place] Rings Not Reportable 03/26/19 Unknown [place] Cells Not Reportable 03/26/19 Unknown Bite Cells Not Reportable 03/26/19 Unknown Crenated Cell Not Reportable 03/26/19 Unknown Elliptocytes Not Reportable 03/26/19 Unknown Acanthocytes (Spur) Not Reportable 03/26/19 Unknown Rouleaux Not Reportable 03/26/19 Unknown Hemoglobin C Crystals Not Reportable 03/26/19 Unknown Schistocytes Not Reportable 03/26/19 Unknown Malaria parasites Not Reportable 03/26/19 Unknown Phil Bodies Not Reportable 03/26/19 Unknown Hem Pathologist Commnt No 03/26/19 Unknown PT 15.9 Sec. (12.2-14.9) H 03/16/19 17:05 INR 1.30 (0.87-1.13) H 03/16/19 17:05 APTT 31.7 Sec. (24.2-36.6) 03/16/19 17:05 POC ABG pH 7.373 (7.35-7.45) 03/24/19 05:09 ABG pH 7.326 pH Units (7.350-7.450) L 03/26/19 04:30 POC ABG pCO2 37.9 (35-45) 03/24/19 05:09 ABG pCO2 36.4 mm Hg 03/26/19 04:30 POC ABG pO2 85 (80-105) 03/24/19 05:09 ABG pO2 137.4 mm Hg (80.0-90.0) H 03/26/19 04:30 POC ABG HCO3 22.0 (22-26 mml/L) 03/24/19 05:09 ABG HCO3 18.6 mmol/L (20.0-26.0) L 03/26/19 04:30 POC ABG Total CO2 23 (23-27mmol/L) 03/24/19 05:09 POC ABG O2 Sat 96 03/24/19 05:09 ABG O2 Saturation 98.6 % (95.0-99.0) 03/26/19 04:30 ABG O2 Content 13.7 (0.0-44) 03/26/19 04:30 POC ABG Base Excess -3 ((-2) - (+3)mmol/L) 03/24/19 05:09 ABG Base Excess -6.8 mmol/L (-2.0-3.0) L 03/26/19 04:30 ABG Hemoglobin 9.9 gm/dl (14.0-18.0) L 03/26/19 04:30 ABG Carboxyhemoglobin 1.4 % (0.0-5.0) 03/26/19 04:30 ABG Methemoglobin 0.6 % (0.0-1.5) 03/26/19 04:30 Oxyhemoglobin 96.5 % (95.0-99.0) 03/26/19 04:30 FiO2 35 % 03/26/19 04:30 Sodium 135 mmol/L (137-145) L 03/26/19 Unknown Potassium 5.2 mmol/L (3.6-5.0) H D 03/26/19 Unknown Chloride 92.2 mmol/L (98-107) L 03/26/19 Unknown Carbon Dioxide 18 mmol/L (22-30) L 03/26/19 Unknown Anion Gap 30 mmol/L 03/26/19 Unknown BUN 109 mg/dL (9-20) H 03/26/19 Unknown Creatinine 8.5 mg/dL (0.8-1.5) H 03/26/19 Unknown Estimated GFR 8 ml/min 03/26/19 Unknown BUN/Creatinine Ratio 13 % 03/26/19 Unknown Glucose 117 mg/dL (75-100) H 03/26/19 Unknown POC Glucose 95 (70-105) 03/25/19 18:25 Lactic Acid 1.90 mmol/L (0.7-2.0) 03/21/19 21:31 Calcium 4.5 mg/dL (8.4-10.2) L* D 03/26/19 Unknown Phosphorus 7.30 mg/dL (2.5-4.5) H 03/17/19 03:45 Magnesium 2.40 mg/dL (1.7-2.3) H 03/18/19 08:40 Total Bilirubin 1.20 mg/dL (0.1-1.2) 03/25/19 05:00 Direct Bilirubin 5.9 mg/dL (0-0.2) H 03/16/19 17:05 Indirect Bilirubin 0.3 mg/dL 03/16/19 17:05 AST 80 units/L (5-40) H 03/25/19 05:00 ALT 48 units/L (7-56) 03/25/19 05:00 Alkaline Phosphatase 202 units/L (35-129) H 03/25/19 05:00 Total Creatine Kinase 4527 units/L (55-170) H 03/26/19 Unknown CK-MB (CK-2) 54.3 ng/mL (0.0-4.0) H 03/17/19 07:16 CK-MB (CK-2) Rel Index 0.0 (0-4) 03/17/19 07:16 Troponin T 0.058 ng/mL (0.00-0.029) H 03/17/19 07:16 C-Reactive Protein 13.30 mg/dL (0.00-1.30) H 03/20/19 14:45 Total Protein 5.3 g/dL (6.3-8.2) L 03/25/19 05:00 Albumin 2.4 g/dL (3.9-5) L 03/25/19 05:00 Albumin/Globulin Ratio 0.8 % 03/25/19 05:00 Triglycerides 395 mg/dL (2-149) H 03/16/19 22:32 Cholesterol 88 mg/dL (50-199) 03/16/19 22:32 LDL Cholesterol Direct 10 mg/dL (50-130) L 03/16/19 22:32 HDL Cholesterol 7 mg/dL (40-59) L 03/16/19 22:32 Cholesterol/HDL Ratio 12.57 % 03/16/19 22:32 TSH 2.200 mlU/mL (0.270-4.200) 03/16/19 17:05 Free T4 0.72 ng/dL (0.76-1.46) L 03/16/19 17:05 PTH Intact 329.9 pg/mL (15-65) H 03/25/19 05:00 Urine Color Kathy (Yellow) 03/17/19 16:05 Urine Turbidity Cloudy (Clear) 03/17/19 16:05 Urine pH 5.0 (5.0-7.0) 03/17/19 16:05 Ur Specific [place] 1.014 (1.003-1.030) 03/17/19 16:05 Urine Protein >500 mg/dL (Negative) 03/17/19 16:05 Urine Glucose (UA) 50 mg/dL (Negative) 03/17/19 16:05 Urine Ketones Tr mg/dL (Negative) 03/17/19 16:05 Urine Blood Lg (Negative) 03/17/19 16:05 Urine Nitrite Neg (Negative) 03/17/19 16:05 Urine Bilirubin Neg (Negative) 03/17/19 16:05 Urine Urobilinogen < 2.0 mg/dL (<2.0) 03/17/19 16:05 Ur Leukocyte Esterase Mod (Negative) 03/17/19 16:05 Urine WBC (Auto) 30.0 /HPF (0.0-6.0) H 03/17/19 16:05 Urine RBC (Auto) 11.0 /HPF (0.0-6.0) 03/17/19 16:05 U Epithel Cells (Auto) < 1.0 /HPF (0-13.0) 03/17/19 16:05 Urine Mucus Few /HPF 03/17/19 16:05 Urine Sperm 2+ /HPF ([employer]) 03/17/19 16:05 Urine Eosinophils None seen (None Seen) 03/17/19 16:05 Urine Creatinine 106.6 mg/dL (0.1-20.0) H 03/17/19 16:05 Urine Sodium 95 mmol/L 03/17/19 16:05 Vancomycin Trough 11.5 ug/mL (5.0-20.0) 03/18/19 13:19 Random Vancomycin 15.4 ug/mL (0-40.0) 03/24/19 04:50 Salicylates < 0.3 mg/dL (2.8-20.0) L 03/16/19 17:05 Urine Opiates Screen Presumptive negative 03/17/19 16:05 Urine Methadone Screen Presumptive negative 03/17/19 16:05 Acetaminophen < 5.0 ug/mL (10.0-30.0) L 03/16/19 17:05 Ur Barbiturates Screen Presumptive negative 03/17/19 16:05 Ur Phencyclidine Scrn Presumptive negative 03/17/19 16:05 Ur Amphetamines Screen Presumptive negative 03/17/19 16:05 U Benzodiazepines Scrn Presumptive positive 03/17/19 16:05 Urine Cocaine Screen Presumptive negative 03/17/19 16:05 U Marijuana (THC) Screen Presumptive negative 03/17/19 16:05 Drugs of Abuse Note Disclamer 03/17/19 16:05 Plasma/Serum Alcohol < 0.01 % (0-0.07) 03/16/19 17:05 Hepatitis A IgM Ab Non-reactive (NonReactive) 03/18/19 13:18 Hep Bs Antigen Non-reactive (Negative) 03/18/19 13:18 Hep B Core IgM Ab Non-reactive (NonReactive) 03/18/19 13:18 Hepatitis C Antibody Non-reactive (NonReactive) 03/18/19 13:18 HIV 1&2 Antibody Rapid Non react (Non React) 03/17/19 11:52 HIV P24 Antigen Non react (Non React) 03/17/19 11:52 Influenza A (Rapid) Negative (Negative) 03/17/19 17:00 Influenza B (Rapid) Negative (Negative) 03/17/19 17:00 Group A Strep Rapid Negative (Negative) 03/17/19 17:00 Active Medications - Current Medications Current Medications: Generic Name Dose Route Start Last Admin Trade Name Freq PRN Reason Stop Dose Admin Acetaminophen 650 mg 03/16/19 22:22 03/26/19 07:00 Tylenol AR 650 mg Q4H PRN Administration Fever >101 Albuterol/Ipratropium 1 ampul 03/19/19 20:00 03/26/19 11:35 Duoneb *Not For Prn Use* IH 1 ampul Q4HRT PAOLO Administration Lipase/Protease/Amylase 1 each 03/17/19 14:[address] 10,500 Unit FEEDTUBE PRN PRN For Clogged Feeding Tube Calcitriol 0.5 mcg 03/26/19 11:00 Rocaltrol PO QDAY PAOLO Dextrose 50 gm 03/19/19 18:39 D50w (25gm) Vial IV PRN PRN Hypoglycemia Ergocalciferol 50,000 unit 03/25/19 12:00 03/26/19 09:58 Vitamin D2 PO 03/27/19 10:01 50,000 unit DAILY PAOLO Administration Famotidine 20 mg 03/20/19 10:00 03/26/19 09:57 Pepcid IV 20 mg DAILY PAOLO Administration Fentanyl 50 mcg 03/16/19 16:06 03/24/19 20:08 Sublimaze IV 50 mcg Q10MIN PRN Administration ANALGESIA Fentanyl 25 mcg 03/19/19 18:33 03/20/19 02:53 Sublimaze IV 25 mcg Q2H PRN Administration Pain, Moderate (4-6) Hydrocortisone Sodium Succinate 50 mg 03/26/19 10:00 03/26/19 09:57 Solu-Cortef IV 03/27/19 10:01 50 mg Q24HR PAOLO Administration Hydrophilic Ointment 1 applic 03/16/19 15:50 Vaseline Lip Therapy TP Q2HR PRN Dry Lips Midazolam HCl 100 mg/ Sodium 100 mls @ 2 mls/hr 03/16/19 16:00 03/19/19 18:45 Chloride IV 0 mg/hr TITR PAOLO 0 mls/hr Titration Protocol 2 MG/HR Vasopressin 20 unit/ Sodium 101 mls @ 9.09 mls/hr 03/16/19 23:45 03/22/19 12:00 Chloride IV Infused TITR PAOLO Titration Protocol 0.03 UNITS/MIN Norepinephrine 8 mg/ Sodium 250 mls @ 3.75 mls/hr 03/17/19 02:00 03/24/19 16:16 Chloride IV 0 mcg/min TITR PAOLO 0 mls/hr Titration Protocol 2 MCG/MIN Phenylephrine HCl 100 mg/ 100 mls @ 3 mls/hr 03/17/19 02:30 03/19/19 18:48 Sodium Chloride IV Infused TITR PAOLO Titration Protocol 50 MCG/MIN Ceftriaxone Sodium 2 gm in 100 mls @ 200 mls/hr 03/17/19 12:00 03/26/19 09:56 Rocephin/Ns 2 Gm/100 Ml IV 200 mls/hr Q12HR PAOLO Administration Protocol Doxycycline Hyclate 100 mg/ 250 mls @ 250 mls/hr 03/17/19 12:00 03/26/19 09:57 Sodium Chloride IV 250 mls/hr Q12HR PAOLO Administration Protocol Dopamine HCl/Dextrose 800 mg in 250 mls @ 5.103 mls/hr 03/17/19 23:00 03/20/19 12:54 Intropin Drip 800 Mg/D5w 250 Ml IV 0 mcg/kg/min TITR PAOLO 0 mls/hr Titration Protocol 2 MCG/KG/MIN Amiodarone HCl 900 mg/ 500 mls @ 33.333 mls/hr 03/18/19 17:00 03/24/19 21:27 Dextrose IV 0.5 mg/min DIRECT PAOLO 16.667 mls/hr Administration Protocol 1 MG/MIN Propofol 1,000 mg in 100 mls @ 4.572 mls/hr 03/22/19 12:00 03/26/19 10:54 Diprivan 10 Mg/Ml IV 30 mcg/kg/min TITR PAOLO 27.432 mls/hr Administration Protocol 5 MCG/KG/MIN Sodium Chloride 100 mls @ 999 mls/hr 03/23/19 10:04 Nacl 0.9% IV NEYMAR PRN Hypotension Sodium Chloride 100 mls @ 999 mls/hr 03/26/19 10:38 Nacl 0.9% IV NEYMAR PRN Hypotension Midazolam HCl 2 mg 03/16/19 15:50 03/20/19 14:23 Versed IV 2 mg Q10MIN PRN Administration Sedation Midodrine 10 mg 03/18/19 20:00 03/26/19 08:25 Proamatine PO Not Given Q8H PAOLO Multi-Ingred Cream/Lotion/Oil/Oint 1 applic 03/16/19 15:50 03/19/19 20:10 Artificial Tears Ophth Oint OU 1 applic Q4HR PRN Administration Dry Eye(s) Ondansetron HCl 4 mg 03/16/19 22:21 Zofran IV Q8H PRN Nausea And Vomiting Quetiapine Fumarate 50 mg 03/25/19 22:00 03/25/19 22:00 Seroquel PO 50 mg QHS PAOLO Administration Simple Syrup 15 ml 03/17/19 14:45 Simple Syrup FEEDTUBE PRN PRN Hypoglycemia Simple Syrup 30 ml 03/17/19 14:45 Simple Syrup FEEDTUBE PRN PRN Hypoglycemia Sodium Bicarbonate 325 mg 03/17/19 14:45 Sodium Bicarbonate FEEDTUBE PRN PRN For Clogged Feeding Tube Nutrition/Malnutrition Assess - Dietary Evaluation Nutrition/Malnutrition Findings: Nutrition Notes Start: 03/17/19 1 4:22 Freq: Status: Active Protocol: Document 03/22/19 13:12 LM (Rec: 03/22/19 13:18 LM [email or web address]) Nutrition Notes Initial or Follow up Reassessment Current Diagnosis Acute Kidney Injury Other Pertinent Diagnosis Septic shock,Multiple organ failure, encephalopathy, rhabdomyolysis Current Diet no diet ordered Labs/Tests Na 132 K 5.6 BUN 101 Cr 7.4 BG 124 Pertinent Medications Norepinephrine Vasopressin Propofol 4.572 ml/hr (121 kcal ) Height 6 ft Weight 152.4 kg [place] Body Weight (kg) 80.90 BMI 45.6 Subjective/Other Information Per RN TF still on hold due to pressors. Burn Absent Trauma Absent Minimum of two criteria No #1 Nutrition Diagnosis Inadequate oral intake Diagnosis Progress(for reassessment Continues documentation) Is patient on ventilator? Yes Is Patient Ambulatory and/or Out of Bed No REE-([place]-St. Jeor-confined to bed) 2938.896 Kcal/Kg value to use for calculation 15 Approximate Energy Requirements Using 2286 kcal/Kg Calculation Used for Recommendations Kcal/kg Additional Notes Protein Needs: 202g (2.5g/kg IBW 80.9) Fluid Needs: 1 ml/kcal or per MD Nutrition Intervention Change Diet Order: Recommend TF when medically feasible Nutrition Support: Nepro 1.8 at 55 ml/hr Flush 150 ml q4hr for hyponatremia Kcal 2,376 Protein (gm) 107 Fluid (mL) 960 Goal #1 Start TF when medically feasible Anticipated Discharge Needs: Unable to determine at this time Follow-Up By: 03/26/19 Additional Comments Follow for POC
[2019-03-26] MEDS ORDERED: LIPASE 10,500/PROTEASE 25,000/AMYLASE 43,750 (UNITS) DR CAP FEEDTUBE PRN (12:16)
[2019-03-26] MEDS ORDERED: SODIUM BICARBONATE 325 MG TAB FEEDTUBE PRN (12:16)
[2019-03-26] MEDS ORDERED: SIMPLE SYRUP 15 ML FEEDTUBE PRN ×2 (12:16)
--- NOTE | 2019-03-26 12:37 | Progress Note ---
Assessment and Plan 43 yo M with 1. septic shock 2. RUBEN 3. rhabdomyolysis 4. AMS 5. multiorgan failure 6. electrolyte abnormalities 7. right axillary cellulitis Plan: 1. neuro - sedation as needed. Neuro on board. 2. CV - off pressors. DVT ppx. CBC daily - monitor thrombocytopenia - improving 3. Resp - vent management per ICU, wean PEEP as tolerated 4. GI - GI ppx. Pt tolerating TTF, may advance to goal as tolerated - Dr. Loo notified 5. - garcia. 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 HD per nephro 6. ID - ID on board, continue abx. LP pending improvement in plts and stability. R axillary u/s - edema, no abscess. UA + 7. Endo - blood glucose monitoring 8. Tox - UDS negative. 9. FEN - replace lytes as needed. Will s/o. No acute surgical intervention indicated at this time. Thank you, please call with questions. Subjective Date of service: 03/26/19 Narrative: Pt seen and examined. No overnight issues. Pt tolerating TTF with 0cc residuals per nursing notes. +BM documented. Objective Vital Signs - 12hr 03/26/19 03/26/19 03/26/19 00:45 01:00 01:15 Temperature Pulse Rate 91 H 91 H 92 H Pulse Rate [ Anterior Bilateral Throughout] Pulse Rate [ From Monitor] Respiratory 28 H 31 H 29 H Rate Respiratory Rate [Anterior Bilateral Throughout] Blood Pressure 113/68 107/68 102/69 O2 Sat by Pulse 100 100 100 Oximetry 03/26/19 03/26/19 03/26/19 01:30 01:45 02:00 Temperature Pulse Rate 92 H 93 H 93 H Pulse Rate [ Anterior Bilateral Throughout] Pulse Rate [ From Monitor] Respiratory 33 H 27 H 29 H Rate Respiratory Rate [Anterior Bilateral Throughout] Blood Pressure 107/68 107/65 110/65 O2 Sat by Pulse 100 100 100 Oximetry 03/26/19 03/26/19 03/26/19 02:15 02:24 02:30 Temperature Pulse Rate 93 H 94 H Pulse Rate [ 92 H Anterior Bilateral Throughout] Pulse Rate [ From Monitor] Respiratory 31 H 26 H Rate Respiratory 31 H Rate [Anterior Bilateral Throughout] Blood Pressure 120/63 118/62 O2 Sat by Pulse 100 100 Oximetry 03/26/19 03/26/19 03/26/19 02:45 03:01 03:15 Temperature Pulse Rate 92 H 94 H 94 H Pulse Rate [ Anterior Bilateral Throughout] Pulse Rate [ From Monitor] Respiratory 25 H 25 H 27 H Rate Respiratory Rate [Anterior Bilateral Throughout] Blood Pressure 127/65 116/61 110/61 O2 Sat by Pulse 100 100 100 Oximetry 03/26/19 03/26/19 03/26/19 03:30 03:45 04:00 Temperature Pulse Rate 93 H 93 H 93 H Pulse Rate [ Anterior Bilateral Throughout] Pulse Rate [ From Monitor] Respiratory 19 26 H 19 Rate Respiratory Rate [Anterior Bilateral Throughout] Blood Pressure 110/61 115/56 111/53 O2 Sat by Pulse 100 100 99 Oximetry 03/26/19 03/26/19 03/26/19 04:10 04:15 04:30 Temperature Pulse Rate 92 H 93 H 93 H Pulse Rate [ Anterior Bilateral Throughout] Pulse Rate [ From Monitor] Respiratory 23 21 Rate Respiratory Rate [Anterior Bilateral Throughout] Blood Pressure 130/65 108/58 108/55 O2 Sat by Pulse 100 99 99 Oximetry 03/26/19 03/26/19 03/26/19 04:45 05:00 05:15 Temperature Pulse Rate 93 H 93 H 93 H Pulse Rate [ Anterior Bilateral Throughout] Pulse Rate [ From Monitor] Respiratory 27 H 22 14 Rate Respiratory Rate [Anterior Bilateral Throughout] Blood Pressure 114/55 107/50 106/51 O2 Sat by Pulse 100 100 100 Oximetry 03/26/19 03/26/19 03/26/19 05:30 05:45 06:00 Temperature Pulse Rate 94 H 93 H 93 H Pulse Rate [ Anterior Bilateral Throughout] Pulse Rate [ From Monitor] Respiratory 26 H 25 H 25 H Rate Respiratory Rate [Anterior Bilateral Throughout] Blood Pressure 108/54 103/54 102/54 O2 Sat by Pulse 100 100 100 Oximetry 03/26/19 03/26/19 03/26/19 06:15 06:30 06:46 Temperature Pulse Rate 94 H 92 H 92 H Pulse Rate [ Anterior Bilateral Throughout] Pulse Rate [ From Monitor] Respiratory 29 H 18 21 Rate Respiratory Rate [Anterior Bilateral Throughout] Blood Pressure 111/61 111/61 130/65 O2 Sat by Pulse 99 96 98 Oximetry 03/26/19 03/26/19 03/26/19 07:00 07:15 07:30 Temperature Pulse Rate 92 H 93 H 93 H Pulse Rate [ Anterior Bilateral Throughout] Pulse Rate [ From Monitor] Respiratory 29 H 36 H 20 Rate Respiratory Rate [Anterior Bilateral Throughout] Blood Pressure 103/53 108/56 102/55 O2 Sat by Pulse 100 100 100 Oximetry 03/26/19 03/26/19 03/26/19 07:40 07:42 07:45 Temperature Pulse Rate 91 H 92 H Pulse Rate [ 93 H Anterior Bilateral Throughout] Pulse Rate [ From Monitor] Respiratory 32 H Rate Respiratory 27 H Rate [Anterior Bilateral Throughout] Blood Pressure 102/55 102/59 O2 Sat by Pulse 100 100 Oximetry 03/26/19 03/26/19 03/26/19 08:00 08:30 09:00 Temperature 101.4 F H Pulse Rate 91 H 90 89 Pulse Rate [ Anterior Bilateral Throughout] Pulse Rate [ 91 H From Monitor] Respiratory 30 H 31 H 30 H Rate Respiratory Rate [Anterior Bilateral Throughout] Blood Pressure 97/55 103/51 98/46 O2 Sat by Pulse 86 95 95 Oximetry 03/26/19 03/26/19 03/26/19 09:30 10:00 10:30 Temperature Pulse Rate 89 88 86 Pulse Rate [ Anterior Bilateral Throughout] Pulse Rate [ From Monitor] Respiratory 31 H 30 H 27 H Rate Respiratory Rate [Anterior Bilateral Throughout] Blood Pressure 112/46 97/50 96/45 O2 Sat by Pulse 100 100 100 Oximetry 03/26/19 03/26/19 03/26/19 11:00 11:30 11:34 Temperature Pulse Rate 97 H 84 89 Pulse Rate [ Anterior Bilateral Throughout] Pulse Rate [ From Monitor] Respiratory 26 H 26 H Rate Respiratory Rate [Anterior Bilateral Throughout] Blood Pressure 120/77 97/46 97/46 O2 Sat by Pulse 99 100 100 Oximetry 03/26/19 11:35 Temperature Pulse Rate Pulse Rate [ 90 Anterior Bilateral Throughout] Pulse Rate [ From Monitor] Respiratory Rate Respiratory 26 H Rate [Anterior Bilateral Throughout] Blood Pressure O2 Sat by Pulse Oximetry - General physical appearance Narrative Exam: Gen: Intubated and sedated ENT; ETT and OGT in place CV: S1, S2+ Resp: on vent Abd: soft, NT, ND Ext: generalized edema - Labs 03/26/19 Unknown 03/26/19 Unknown Diabetes panel 03/26/19 Range/Units Unknown Sodium 135 L (137-145) mmol/L Potassium 5.2 H D (3.6-5.0) mmol/L Chloride 92.2 L (98-107) mmol/L Carbon Dioxide 18 L (22-30) mmol/L BUN 109 H (9-20) mg/dL Creatinine 8.5 H (0.8-1.5) mg/dL Glucose 117 H (75-100) mg/dL Calcium 4.5 L* D (8.4-10.2) mg/dL Calcium panel 03/26/19 Range/Units Unknown Calcium 4.5 L* D (8.4-10.2) mg/dL Pituitary panel 03/26/19 Range/Units Unknown Sodium 135 L (137-145) mmol/L Potassium 5.2 H D (3.6-5.0) mmol/L Chloride 92.2 L (98-107) mmol/L Carbon Dioxide 18 L (22-30) mmol/L BUN 109 H (9-20) mg/dL Creatinine 8.5 H (0.8-1.5) mg/dL Glucose 117 H (75-100) mg/dL Calcium 4.5 L* D (8.4-10.2) mg/dL Adrenal panel 03/26/19 Range/Units Unknown Sodium 135 L (137-145) mmol/L Potassium 5.2 H D (3.6-5.0) mmol/L Chloride 92.2 L (98-107) mmol/L Carbon Dioxide 18 L (22-30) mmol/L BUN 109 H (9-20) mg/dL Creatinine 8.5 H (0.8-1.5) mg/dL Glucose 117 H (75-100) mg/dL Calcium 4.5 L* D (8.4-10.2) mg/dL
[2019-03-26] MEDS: LORazepam 2 MG/ML VIAL IV PRN (14:00)
--- NOTE | 2019-03-26 14:24 | Event Note ---
Date: 03/26/19 Patient obtaining MRI. Plan for vascath to trialysis today cancelled due to patient in MRI. Plan for conversion tomorrow.
--- NOTE | 2019-03-26 15:05 | Magnetic Resonance Report ---
MRI BRAIN WITHOUT CONTRAST INDICATION / CLINICAL INFORMATION: acute encephalopathy and fever meningitis, CVA. TECHNIQUE: Multisequence, multiplanar images were obtained. COMPARISON: None available. FINDINGS: Multiple sequences are somewhat limited secondary to patient motion artifact. CEREBRAL and CEREBELLAR HEMISPHERES: No evidence of mass or mass effect. No midline shift. No acute hemorrhage. No diffusion restriction to suggest acute infarct. No extra-axial fluid collection. M ild nonspecific chronic white matter changes are identified bilaterally which are probably related to chronic microvascular ischemic disease. No chronic infarct. VENTRICLES: Normal in size and configuration for age. VISUALIZED ORBITS: No significant abnormality. VISUALIZED PARANASAL SINUSES: There is mild mucosal thickening and moderate fluid throughout the ethm oid and sphenoid sinuses. Mild mucosal thickening in the maxillary sinuses. The mastoid air cells are opacified with fluid bilaterally. ADDITIONAL FINDINGS: None. IMPRESSION: Slightly limited exam secondary to motion artifact. No acute intracranial abnormality is identified. Mild nonspecific chronic white matter changes. Fluid throughout the sinuses and mastoid air cells. Correlate for sinusitis. Meningitis cannot be evaluated without IV contrast. Signer Name: Linus Cantu Jr, MD Signed: 03/26/2019 3:01 PM Workstation Name: [id number]
[2019-03-26] MEDS: CALCITRIOL 0.5 MCG CAP PO SCH (16:19)
--- NOTE | 2019-03-26 17:02 | Vascular Lab Report ---
DUPLEX DOPPLER LOWER EXTREMITY VEINS, BILATERAL DUPLEX DOPPLER UPPER EXTREMITY VEINS, BILATERAL INDICATION: eval for DVTs]. Cardiopulmonary arrest TECHNIQUE: Duplex doppler imaging was performed through the veins of both lower and upper extremities using veno us compression and other maneuvers. COMPARISON: No relevant prior imaging study available. FINDINGS: LOWER EXTREMITIES: Right Common femoral vein: Negative. Right Superficial femoral vein: Negative. Right Popliteal vein: Negative. Right Calf veins: Negative. Left Common femoral vein: Negative. Left Superficial femoral vein: Negative. Left Popliteal vein: Negative. Left Calf veins: Negative. Additional findings: None.. UPPER EXTREMITIES: There is nonocclusive thrombus in the internal jugular vein on the right. No thrombus identified in t he right subclavian through the axillary, brachial, basilic, radial, and ulnar veins. In the left upper extremity there is no thrombus identified from the level of the internal jugular ve in through the subclavian, axillary, brachial, basilic, radial, and ulnar veins. IMPRESSION: 1. Positive for nonocclusive thrombus in the right internal jugular vein. Findings were called to the patient's nurse Veronica by the biodiesel plant superintendent at 1628 hours EST. 2. No sonographic evidence for DVT in either lower extremity. Signer Name: Fadi Lopez MD Signed: 03/26/2019 4:57 PM Workstation Name: [id number]
--- NOTE | 2019-03-26 17:02 | Vascular Lab Report ---
DUPLEX DOPPLER LOWER EXTREMITY VEINS, BILATERAL DUPLEX DOPPLER UPPER EXTREMITY VEINS, BILATERAL INDICATION: eval for DVTs]. Cardiopulmonary arrest TECHNIQUE: Duplex doppler imaging was performed through the veins of both lower and upper extremities using veno us compression and other maneuvers. COMPARISON: No relevant prior imaging study available. FINDINGS: LOWER EXTREMITIES: Right Common femoral vein: Negative. Right Superficial femoral vein: Negative. Right Popliteal vein: Negative. Right Calf veins: Negative. Left Common femoral vein: Negative. Left Superficial femoral vein: Negative. Left Popliteal vein: Negative. Left Calf veins: Negative. Additional findings: None.. UPPER EXTREMITIES: There is nonocclusive thrombus in the internal jugular vein on the right. No thrombus identified in t he right subclavian through the axillary, brachial, basilic, radial, and ulnar veins. In the left upper extremity there is no thrombus identified from the level of the internal jugular ve in through the subclavian, axillary, brachial, basilic, radial, and ulnar veins. IMPRESSION: 1. Positive for nonocclusive thrombus in the right internal jugular vein. Findings were called to the patient's nurse Veronica by the hull inspector at 1628 hours EST. 2. No sonographic evidence for DVT in either lower extremity. Signer Name: Fadi Lopez MD Signed: 03/26/2019 4:57 PM Workstation Name: [id number]
[2019-03-26] MEDS: METOPROLOL TARTRATE 25 MG TAB PO SCH ×2 (18:38→22:47)
[2019-03-26] MEDS ORDERED: NORepinephrine/NS 4 MG-250 ML 4 MG/250 ML BAG IV SCH (19:00)
[2019-03-26] MEDS: QUEtiapine 25 MG TAB PO SCH (21:33)
[2019-03-26] MEDS: ACETAMINOPHEN 325 MG TAB PO PRN (22:48)
[2019-03-27] MEDS: PROPOFOL 1,000 MG/100 ML BOTTLE IV SCH ×2 (01:30→05:20)
[2019-03-27] MEDS: fentaNYL 100 MCG/2 ML INJ IV PRN ×3 (01:35→13:47)
[2019-03-27] MEDS: LORazepam 2 MG/ML VIAL IV PRN (02:44)
[2019-03-27] MEDS: ACETAMINOPHEN 325 MG TAB PO PRN ×4 (03:43→21:23)
[2019-03-27] MEDS: MIDODRINE 5 MG TAB PO SCH ×3 (04:00→20:02)
[2019-03-27] MEDS: IPRATROPIUM/ALBUTEROL SULFATE 3 ML AMPUL.NEB IH SCH ×6 (04:19→23:24)
[2019-03-27 04:59] LABS: Albumin 2.3 g/dL (3.9-5)
[2019-03-27] MEDS: METOPROLOL TARTRATE 25 MG TAB PO SCH ×3 (07:36→20:54)
--- NOTE | 2019-03-27 09:25 | Progress Note ---
Assessment and Plan Severe sepsis with shock. Right axilla abscess versus localized pannus/fatty collection. Acute hypoxemic respiratory failure, on mechanical ventilator support. Likely aspiration pneumonia, bilateral. Morbid obesity. Rhabdomyolysis. Acute kidney injury on HD. Leukocytosis-persistent Morbid obesity. Metabolic acidosis. Lactic acidosis. Hypomagnesemia. Elevated serum transaminases/possible shock liver. Acute encephalopathy, toxic metabolic( see Neurology consult notes) Thrombocytopenia- etiology, multifactorial- improving - keep on PRVC/AC -Start SBTs in the morning. -CXR in the morning -wean FiO2 for O2 sats>92% -continue reglan , advance tube feeding as tolerated -Continue Seroquel 50mg qhs to help with agitation. -Monitor QTc as he is on multiple medications that can prolong QT -IR to change HD catheter to trialysis catheter, place on the left side in view of RIJ non-occlusive thrombus -Discontinue femoral CVC -Antibiotics per ID -Target sedation for RASS 0 to -1, continue propofol and intermittent fentanyl dosing, daily SAT - continue HD/UF per nephrology - VAP bundle addressed - continue daily SAT's and SBT assessment as tolerated - prn analgesia per CPOT score - prn supportive blood transfusions to keep HgB > 7.0 - Monitor hemodynamics closely - Transfuse PRBC's to keep HgB > 7g/dL - continue mobility protocols and off loading as tolerated for pressure ulcer prevention - continue to avoid nephrotoxins, adjust all medications for GFR and CRCL - continue GI & VTE prophylaxis ( SCDs and Famotidine) - accuchecks with glycemic control per SSI for target BG of 140-180 mg/dl acutely - continue steroid taper - continue other care per attending / other consultants Discussed with Cardiology OK to stop amiodarone infusion, use a short acting betblocker for rate control. Patient had liver dysfunction and will prefer not to use amiodarone. Spoke to his brother at length and updated him that the patient is critical but stable and is beginning to make progress -MRI was unremarkable -The idea of a tracheostomy was also introduced CONDITION: CRITICAL PROGNOSIS: GUARDED CODE STATUS: FULL CODE Discussed extensively with RT/RN The high probability of a clinically significant, sudden or life threatening deterioration of the [respiratory, renal, neurologic and Cardiac] systems required my full and direct attention, intervention and personal management. The aggregate critical care time was 35 minutes. This time is in addition to time s pent performing reported procedures but includes the following: [x] Data Review and interpretation [x] Patient assessment and monitoring of vital signs [x] Documentation [x] Medication orders and management Subjective Date of service: 03/27/19 Principal diagnosis: Septic Shock; Ac. hypoxemic resp failure; Renzo. PNA; Rhabdomyolysis; RUBEN Interval history: Patient is seen today for: Severe sepsis with shock; Acute hypoxemic respiratory failure; Aspiration pneumonia; Morbid obesity; Rhabdomyolysis; Acute kidney injury; Morbid obesity; Elevated serum transaminases/possible shock liver; Acute encephalopathy (Toxic/Met) Seen and examined at bedside; 24hour events reviewed; nursing and respiratory care staff consulted; no adverse overnight events reported to me; resting peacefully in bed; remains off vasopressors; remains critically ill on MVS; on amiodarone at 1mcg/hour infusion; Tolerating trophic feedings, advancing; Vitals, labs, medications, chart and imaging reviewed. On full MVS AC 25/500/6/35% Objective Vital Signs - 12hr 03/26/19 03/26/19 03/26/19 21:30 22:00 22:30 Temperature Pulse Rate 137 H 134 H 129 H Pulse Rate [ Anterior Bilateral Throughout] Pulse Rate [ From Monitor] Respiratory 20 20 19 Rate Respiratory Rate [Anterior Bilateral Throughout] Blood Pressure 134/71 116/53 102/49 O2 Sat by Pulse 97 97 94 Oximetry 03/26/19 03/26/19 03/26/19 22:47 23:00 23:27 Temperature 100.6 F H Pulse Rate 134 H 125 H Pulse Rate [ Anterior Bilateral Throughout] Pulse Rate [ From Monitor] Respiratory 24 Rate Respiratory Rate [Anterior Bilateral Throughout] Blood Pressure 112/62 110/61 O2 Sat by Pulse 99 Oximetry 03/26/19 03/26/19 03/26/19 23:30 23:39 23:42 Temperature Pulse Rate 121 H 144 H 124 H Pulse Rate [ Anterior Bilateral Throughout] Pulse Rate [ From Monitor] Respiratory 26 H 28 H Rate Respiratory Rate [Anterior Bilateral Throughout] Blood Pressure 102/61 114/66 102/61 O2 Sat by Pulse 99 99 99 Oximetry 03/27/19 03/27/19 03/27/19 00:00 00:30 01:00 Temperature Pulse Rate 132 H 129 H 95 H Pulse Rate [ Anterior Bilateral Throughout] Pulse Rate [ 119 H From Monitor] Respiratory 28 H 26 H 27 H Rate Respiratory Rate [Anterior Bilateral Throughout] Blood Pressure 107/65 107/64 107/64 O2 Sat by Pulse 99 98 98 Oximetry 03/27/19 03/27/19 03/27/19 01:30 02:00 02:30 Temperature Pulse Rate 123 H 126 H 127 H Pulse Rate [ Anterior Bilateral Throughout] Pulse Rate [ From Monitor] Respiratory 27 H 26 H 29 H Rate Respiratory Rate [Anterior Bilateral Throughout] Blood Pressure 107/52 112/48 106/61 O2 Sat by Pulse 98 98 98 Oximetry 03/27/19 03/27/19 03/27/19 03:00 03:29 03:30 Temperature 102.1 F H Pulse Rate 135 H 112 H Pulse Rate [ Anterior Bilateral Throughout] Pulse Rate [ From Monitor] Respiratory 25 H 26 H Rate Respiratory Rate [Anterior Bilateral Throughout] Blood Pressure 87/42 96/44 O2 Sat by Pulse 98 98 Oximetry 03/27/19 03/27/19 03/27/19 04:00 04:22 04:30 Temperature Pulse Rate 83 139 H 126 H Pulse Rate [ Anterior Bilateral Throughout] Pulse Rate [ 127 H From Monitor] Respiratory 26 H 33 H Rate Respiratory Rate [Anterior Bilateral Throughout] Blood Pressure 92/48 92/48 115/65 O2 Sat by Pulse 99 99 98 Oximetry 03/27/19 03/27/19 03/27/19 05:00 05:30 06:00 Temperature Pulse Rate 125 H 126 H 138 H Pulse Rate [ Anterior Bilateral Throughout] Pulse Rate [ From Monitor] Respiratory 24 27 H 29 H Rate Respiratory Rate [Anterior Bilateral Throughout] Blood Pressure 119/63 124/72 123/75 O2 Sat by Pulse 98 98 98 Oximetry 03/27/19 03/27/19 03/27/19 06:30 07:00 07:30 Temperature Pulse Rate 149 H 129 H 154 H Pulse Rate [ Anterior Bilateral Throughout] Pulse Rate [ From Monitor] Respiratory 55 H 29 H 40 H Rate Respiratory Rate [Anterior Bilateral Throughout] Blood Pressure 121/65 107/70 111/69 O2 Sat by Pulse 98 98 98 Oximetry 03/27/19 03/27/19 03/27/19 07:36 08:00 08:30 Temperature 102.4 F H Pulse Rate 141 H 132 H 135 H Pulse Rate [ 90 Anterior Bilateral Throughout] Pulse Rate [ 132 H From Monitor] Respiratory 33 H 33 H Rate Respiratory 33 H Rate [Anterior Bilateral Throughout] Blood Pressure 111/69 116/68 121/67 O2 Sat by Pulse 98 98 Oximetry 03/27/19 03/27/19 08:42 08:43 Temperature Pulse Rate Pulse Rate [ Anterior Bilateral Throughout] Pulse Rate [ From Monitor] Respiratory 36 H 34 H Rate Respiratory Rate [Anterior Bilateral Throughout] Blood Pressure O2 Sat by Pulse Oximetry Constitutional: no acute distress, other (middle aged morbidly obese CM, normocephalic with incresed respiratory effort on MVS) Eyes: icteric ENT: oropharynx moist, other (ETT 23-24 cm PEDRO, ulcers over his upper lip) Neck: supple, no lymphadenopathy, no JVD, other (large neck circumference) Effort: mildly labored Ascultation: Bilateral: diminished breath sounds, rales Percussion: Bilateral: not dull Cardiovascular: regular rate and rhythm, other ( S1,S2) Gastrointestinal: hypoactive bowel sounds, soft, non-tender, non-distended, other (obese) Integumentary: normal, other (blisters with some weeping over the extremities) Extremities: no cyanosis, pink and warm, pulses normal, no ischemia or petechiae Neurologic: pupils equal and round, other (obeys simple commands when SAT was done) Psychiatric: other (inable to assess) CBC and BMP: 03/29/19 06:22 03/29/19 06:22 ABG, PT/INR, D-dimer: ABG POC ABG pH 7.391 (7.35-7.45) 03/27/19 04:22 ABG pH 7.326 pH Units (7.350-7.450) L 03/26/19 04:30 POC ABG pCO2 38.0 (35-45) 03/27/19 04:22 ABG pCO2 36.4 mm Hg 03/26/19 04:30 POC ABG pO2 105 (80-105) 03/27/19 04:22 ABG pO2 137.4 mm Hg (80.0-90.0) H 03/26/19 04:30 POC ABG HCO3 23.1 (22-26 mml/L) 03/27/19 04:22 POC ABG Total CO2 24 (23-27mmol/L) 03/27/19 04:22 POC ABG O2 Sat 98 03/27/19 04:22 ABG O2 Saturation 98.6 % (95.0-99.0) 03/26/19 04:30 PT/INR, D-dimer PT 15.9 Sec. (12.2-14.9) H 03/16/19 17:05 INR 1.30 (0.87-1.13) H 03/16/19 17:05 Abnormal lab findings: Abnormal Labs 03/16/19 03/16/19 03/16/19 15:32 16:03 16:05 WBC 27.0 H RBC 5.55 H Hgb 15.7 H Hct 47.1 H RDW Plt Count 75 L Seg Neuts % (Manual) 85.0 H Lymphocytes % (Manual) 2.0 L Monocytes % (Manual) Nucleated RBC % Seg Neutrophils # Seg Neutrophils # Man 23.0 H Lymphocytes # (Manual) 0.5 L Monocytes # (Manual) PT INR POC ABG pH ABG pH POC ABG pCO2 POC ABG pO2 ABG pO2 ABG HCO3 ABG O2 Saturation ABG Base Excess ABG Hemoglobin Oxyhemoglobin Sodium 127 L Potassium Chloride 87.8 L Carbon Dioxide 17 L BUN 49 H Creatinine 5.8 H Glucose 150 H POC Glucose 118 H Lactic Acid Calcium 6.6 L Phosphorus Magnesium 1.10 L Total Bilirubin Direct Bilirubin AST ALT Alkaline Phosphatase Total Creatine Kinase 58820 H CK-MB (CK-2) Troponin T C-Reactive Protein Total Protein Albumin Triglycerides LDL Cholesterol Direct HDL Cholesterol Free T4 PTH Intact Urine WBC (Auto) Urine Creatinine Salicylates Acetaminophen 03/16/19 03/16/19 03/16/19 16:59 17:05 17:05 WBC RBC Hgb Hct RDW Plt Count Seg Neuts % (Manual) Lymphocytes % (Manual) Monocytes % (Manual) Nucleated RBC % Seg Neutrophils # Seg Neutrophils # Man Lymphocytes # (Manual) Monocytes # (Manual) PT INR POC ABG pH 7.297 L ABG pH POC ABG pCO2 33.0 L POC ABG pO2 ABG pO2 ABG HCO3 ABG O2 Saturation ABG Base Excess ABG Hemoglobin Oxyhemoglobin Sodium Potassium Chloride Carbon Dioxide BUN Creatinine Glucose POC Glucose Lactic Acid Calcium Phosphorus Magnesium Total Bilirubin Direct Bilirubin AST ALT Alkaline Phosphatase Total Creatine Kinase 19795 H CK-MB (CK-2) 83.1 H Troponin T C-Reactive Protein Total Protein Albumin Triglycerides LDL Cholesterol Direct HDL Cholesterol Free T4 0.72 L PTH Intact Urine WBC (Auto) Urine Creatinine Salicylates Acetaminophen 03/16/19 03/16/19 03/16/19 17:05 17:05 17:05 WBC RBC Hgb Hct RDW Plt Count Seg Neuts % (Manual) Lymphocytes % (Manual) Monocytes % (Manual) Nucleated RBC % Seg Neutrophils # Seg Neutrophils # Man Lymphocytes # (Manual) Monocytes # (Manual) PT INR POC ABG pH ABG pH POC ABG pCO2 POC ABG pO2 ABG pO2 ABG HCO3 ABG O2 Saturation ABG Base Excess ABG Hemoglobin Oxyhemoglobin Sodium Potassium Chloride Carbon Dioxide BUN Creatinine Glucose POC Glucose Lactic Acid 5.10 H* Calcium Phosphorus Magnesium Total Bilirubin Direct Bilirubin AST ALT Alkaline Phosphatase Total Creatine Kinase CK-MB (CK-2) Troponin T C-Reactive Protein Total Protein Albumin Triglycerides LDL Cholesterol Direct HDL Cholesterol Free T4 PTH Intact Urine WBC (Auto) Urine Creatinine Salicylates < 0.3 L Acetaminophen < 5.0 L 03/16/19 03/16/19 03/16/19 17:05 17:05 20:35 WBC RBC Hgb Hct RDW Plt Count Seg Neuts % (Manual) Lymphocytes % (Manual) Monocytes % (Manual) Nucleated RBC % Seg Neutrophils # Seg Neutrophils # Man Lymphocytes # (Manual) Monocytes # (Manual) PT 15.9 H INR 1.30 H POC ABG pH ABG pH POC ABG pCO2 POC ABG pO2 ABG pO2 ABG HCO3 ABG O2 Saturation ABG Base Excess ABG Hemoglobin Oxyhemoglobin Sodium Potassium Chloride Carbon Dioxide BUN Creatinine Glucose POC Glucose Lactic Acid 3.30 H* Calcium Phosphorus Magnesium Total Bilirubin 6.20 H Direct Bilirubin 5.9 H AST 800 H ALT 120 H Alkaline Phosphatase Total Creatine Kinase CK-MB (CK-2) Troponin T C-Reactive Protein Total Protein 4.4 L Albumin 2.4 L Triglycerides LDL Cholesterol Direct HDL Cholesterol Free T4 PTH Intact Urine WBC (Auto) Urine Creatinine Salicylates Acetaminophen 03/16/19 03/16/19 03/16/19 21:45 22:32 Unknown WBC RBC Hgb Hct RDW Plt Count Seg Neuts % (Manual) Lymphocytes % (Manual) Monocytes % (Manual) Nucleated RBC % Seg Neutrophils # Seg Neutrophils # Man Lymphocytes # (Manual) Monocytes # (Manual) PT INR POC ABG pH ABG pH POC ABG pCO2 POC ABG pO2 ABG pO2 ABG HCO3 ABG O2 Saturation ABG Base Excess ABG Hemoglobin Oxyhemoglobin Sodium Potassium Chloride Carbon Dioxide BUN Creatinine Glucose POC Glucose Lactic Acid 3.30 H* 3.00 H* Calcium Phosphorus Magnesium Total Bilirubin Direct Bilirubin AST ALT Alkaline Phosphatase Total Creatine Kinase CK-MB (CK-2) Troponin T 0.047 H D C-Reactive Protein Total Protein Albumin Triglycerides 395 H LDL Cholesterol Direct 10 L HDL Cholesterol 7 L Free T4 PTH Intact Urine WBC (Auto) Urine Creatinine Salicylates Acetaminophen 03/17/19 03/17/19 03/17/19 03:45 03:45 03:45 WBC RBC Hgb Hct RDW Plt Count Seg Neuts % (Manual) Lymphocytes % (Manual) Monocytes % (Manual) Nucleated RBC % Seg Neutrophils # Seg Neutrophils # Man Lymphocytes # (Manual) Monocytes # (Manual) PT INR POC ABG pH ABG pH POC ABG pCO2 POC ABG pO2 ABG pO2 ABG HCO3 ABG O2 Saturation ABG Base Excess ABG Hemoglobin Oxyhemoglobin Sodium 131 L Potassium Chloride 88.9 L Carbon Dioxide BUN 53 H Creatinine 7.1 H Glucose POC Glucose Lactic Acid 4.10 H* Calcium 5.4 L* D Phosphorus 7.30 H Magnesium 1.60 L Total Bilirubin 5.90 H Direct Bilirubin AST 801 H ALT 109 H Alkaline Phosphatase Total Creatine Kinase 01594 H 27311 H CK-MB (CK-2) 41.5 H Troponin T 0.054 H C-Reactive Protein Total Protein 4.5 L Albumin 2.0 L Triglycerides LDL Cholesterol Direct HDL Cholesterol Free T4 PTH Intact Urine WBC (Auto) Urine Creatinine Salicylates Acetaminophen 03/17/19 03/17/19 03/17/19 05:47 07:16 07:16 WBC RBC Hgb Hct RDW Plt Count Seg Neuts % (Manual) Lymphocytes % (Manual) Monocytes % (Manual) Nucleated RBC % Seg Neutrophils # Seg Neutrophils # Man Lymphocytes # (Manual) Monocytes # (Manual) PT INR POC ABG pH 7.193 L ABG pH POC ABG pCO2 45.2 H POC ABG pO2 65 L ABG pO2 ABG HCO3 ABG O2 Saturation ABG Base Excess ABG Hemoglobin Oxyhemoglobin Sodium Potassium Chloride Carbon Dioxide BUN Creatinine Glucose POC Glucose Lactic Acid 5.50 H* Calcium Phosphorus Magnesium Total Bilirubin Direct Bilirubin AST ALT Alkaline Phosphatase Total Creatine Kinase 03750 H CK-MB (CK-2) 54.3 H Troponin T 0.058 H C-Reactive Protein Total Protein Albumin Triglycerides LDL Cholesterol Direct HDL Cholesterol Free T4 PTH Intact Urine WBC (Auto) Urine Creatinine Salicylates Acetaminophen 03/17/19 03/17/19 03/17/19 11:52 12:51 13:01 WBC RBC Hgb Hct RDW Plt Count Seg Neuts % (Manual) Lymphocytes % (Manual) Monocytes % (Manual) Nucleated RBC % Seg Neutrophils # Seg Neutrophils # Man Lymphocytes # (Manual) Monocytes # (Manual) PT INR POC ABG pH 7.154 L ABG pH POC ABG pCO2 34.3 L POC ABG pO2 73 L ABG pO2 ABG HCO3 ABG O2 Saturation ABG Base Excess ABG Hemoglobin Oxyhemoglobin Sodium Potassium Chloride Carbon Dioxide BUN Creatinine Glucose POC Glucose 60 L Lactic Acid 8.20 H* Calcium Phosphorus Magnesium Total Bilirubin Direct Bilirubin AST ALT Alkaline Phosphatase Total Creatine Kinase CK-MB (CK-2) Troponin T C-Reactive Protein Total Protein Albumin Triglycerides LDL Cholesterol Direct HDL Cholesterol Free T4 PTH Intact Urine WBC (Auto) Urine Creatinine Salicylates Acetaminophen 03/17/19 03/17/19 03/17/19 14:37 14:37 14:37 WBC 29.3 H RBC Hgb Hct RDW 15.8 H Plt Count 45 L Seg Neuts % (Manual) 81.0 H Lymphocytes % (Manual) 1.0 L Monocytes % (Manual) 15.0 H Nucleated RBC % Seg Neutrophils # Seg Neutrophils # Man 23.7 H Lymphocytes # (Manual) 0.3 L Monocytes # (Manual) 4.4 H PT INR POC ABG pH ABG pH POC ABG pCO2 POC ABG pO2 ABG pO2 ABG HCO3 ABG O2 Saturation ABG Base Excess ABG Hemoglobin Oxyhemoglobin Sodium Potassium Chloride Carbon Dioxide BUN Creatinine Glucose POC Glucose Lactic Acid 4.90 H* Calcium Phosphorus Magnesium Total Bilirubin Direct Bilirubin AST ALT Alkaline Phosphatase Total Creatine Kinase CK-MB (CK-2) Troponin T C-Reactive Protein 24.90 H Total Protein Albumin Triglycerides LDL Cholesterol Direct HDL Cholesterol Free T4 PTH Intact Urine WBC (Auto) Urine Creatinine Salicylates Acetaminophen 03/17/19 03/17/19 03/17/19 16:05 16:05 17:02 WBC RBC Hgb Hct RDW Plt Count Seg Neuts % (Manual) Lymphocytes % (Manual) Monocytes % (Manual) Nucleated RBC % Seg Neutrophils # Seg Neutrophils # Man Lymphocytes # (Manual) Monocytes # (Manual) PT INR POC ABG pH 7.183 L ABG pH POC ABG pCO2 POC ABG pO2 65 L ABG pO2 ABG HCO3 ABG O2 Saturation ABG Base Excess ABG Hemoglobin Oxyhemoglobin Sodium Potassium Chloride Carbon Dioxide BUN Creatinine Glucose POC Glucose Lactic Acid Calcium Phosphorus Magnesium Total Bilirubin Direct Bilirubin AST ALT Alkaline Phosphatase Total Creatine Kinase CK-MB (CK-2) Troponin T C-Reactive Protein Total Protein Albumin Triglycerides LDL Cholesterol Direct HDL Cholesterol Free T4 PTH Intact Urine WBC (Auto) 30.0 H Urine Creatinine 106.6 H Salicylates Acetaminophen 03/18/19 03/18/19 03/18/19 05:12 05:16 05:53 WBC RBC Hgb Hct RDW Plt Count Seg Neuts % (Manual) Lymphocytes % (Manual) Monocytes % (Manual) Nucleated RBC % Seg Neutrophils # Seg Neutrophils # Man Lymphocytes # (Manual) Monocytes # (Manual) PT INR POC ABG pH 7.257 L ABG pH POC ABG pCO2 31.6 L POC ABG pO2 69 L ABG pO2 ABG HCO3 ABG O2 Saturation ABG Base Excess ABG Hemoglobin Oxyhemoglobin Sodium Potassium Chloride Carbon Dioxide BUN Creatinine Glucose POC Glucose 141 H Lactic Acid 5.00 H* Calcium Phosphorus Magnesium Total Bilirubin Direct Bilirubin AST ALT Alkaline Phosphatase Total Creatine Kinase CK-MB (CK-2) Troponin T C-Reactive Protein Total Protein Albumin Triglycerides LDL Cholesterol Direct HDL Cholesterol Free T4 PTH Intact Urine WBC (Auto) Urine Creatinine Salicylates Acetaminophen 03/18/19 03/18/19 03/18/19 06:57 08:40 08:40 WBC 31.7 H RBC Hgb Hct RDW 15.5 H Plt Count 35 L Seg Neuts % (Manual) Lymphocytes % (Manual) Monocytes % (Manual) Nucleated RBC % Seg Neutrophils # Seg Neutrophils # Man Lymphocytes # (Manual) Monocytes # (Manual) PT INR POC ABG pH ABG pH POC ABG pCO2 POC ABG pO2 ABG pO2 ABG HCO3 ABG O2 Saturation ABG Base Excess ABG Hemoglobin Oxyhemoglobin Sodium 132 L Potassium 5.5 H D Chloride 88.5 L Carbon Dioxide 18 L BUN 71 H Creatinine 8.1 H Glucose 205 H POC Glucose Lactic Acid 5.00 H* Calcium 4.1 L* D Phosphorus Magnesium 2.40 H Total Bilirubin 7.50 H Direct Bilirubin AST 1088 H ALT 159 H Alkaline Phosphatase 190 H Total Creatine Kinase 787374 H CK-MB (CK-2) Troponin T C-Reactive Protein Total Protein 4.7 L Albumin 1.8 L Triglycerides LDL Cholesterol Direct HDL Cholesterol Free T4 PTH Intact Urine WBC (Auto) Urine Creatinine Salicylates Acetaminophen 03/18/19 03/18/19 03/18/19 12:33 12:50 13:19 WBC RBC Hgb Hct RDW Plt Count Seg Neuts % (Manual) Lymphocytes % (Manual) Monocytes % (Manual) Nucleated RBC % Seg Neutrophils # Seg Neutrophils # Man Lymphocytes # (Manual) Monocytes # (Manual) PT INR POC ABG pH 7.282 L ABG pH POC ABG pCO2 POC ABG pO2 67 L ABG pO2 ABG HCO3 ABG O2 Saturation ABG Base Excess ABG Hemoglobin Oxyhemoglobin Sodium Potassium Chloride Carbon Dioxide BUN Creatinine Glucose POC Glucose 129 H Lactic Acid 3.30 H* Calcium Phosphorus Magnesium Total Bilirubin Direct Bilirubin AST ALT Alkaline Phosphatase Total Creatine Kinase CK-MB (CK-2) Troponin T C-Reactive Protein Total Protein Albumin Triglycerides LDL Cholesterol Direct HDL Cholesterol Free T4 PTH Intact Urine WBC (Auto) Urine Creatinine Salicylates Acetaminophen 03/18/19 03/18/19 03/18/19 13:19 16:50 18:11 WBC RBC Hgb Hct RDW Plt Count Seg Neuts % (Manual) Lymphocytes % (Manual) Monocytes % (Manual) Nucleated RBC % Seg Neutrophils # Seg Neutrophils # Man Lymphocytes # (Manual) Monocytes # (Manual) PT INR POC ABG pH ABG pH POC ABG pCO2 POC ABG pO2 59 L ABG pO2 ABG HCO3 ABG O2 Saturation ABG Base Excess ABG Hemoglobin Oxyhemoglobin Sodium Potassium Chloride Carbon Dioxide BUN Creatinine Glucose POC Glucose 151 H Lactic Acid Calcium 4.2 L* Phosphorus Magnesium Total Bilirubin Direct Bilirubin AST ALT Alkaline Phosphatase Total Creatine Kinase 695904 H CK-MB (CK-2) Troponin T C-Reactive Protein Total Protein Albumin Triglycerides LDL Cholesterol Direct HDL Cholesterol Free T4 PTH Intact Urine WBC (Auto) Urine Creatinine Salicylates Acetaminophen 03/18/19 03/18/19 03/19/19 18:20 23:39 01:42 WBC RBC Hgb Hct RDW Plt Count Seg Neuts % (Manual) Lymphocytes % (Manual) Monocytes % (Manual) Nucleated RBC % Seg Neutrophils # Seg Neutrophils # Man Lymphocytes # (Manual) Monocytes # (Manual) PT INR POC ABG pH 7.345 L ABG pH 7.285 L POC ABG pCO2 POC ABG pO2 59 L ABG pO2 44.0 L ABG HCO3 ABG O2 Saturation 70.9 L ABG Base Excess -5.7 L ABG Hemoglobin 11.9 L Oxyhemoglobin 69.6 L Sodium Potassium Chloride Carbon Dioxide BUN Creatinine Glucose POC Glucose 152 H Lactic Acid Calcium Phosphorus Magnesium Total Bilirubin Direct Bilirubin AST ALT Alkaline Phosphatase Total Creatine Kinase CK-MB (CK-2) Troponin T C-Reactive Protein Total Protein Albumin Triglycerides LDL Cholesterol Direct HDL Cholesterol Free T4 PTH Intact Urine WBC (Auto) Urine Creatinine Salicylates Acetaminophen 03/19/19 03/19/19 03/19/19 04:00 04:00 05:35 WBC 36.5 H RBC Hgb Hct RDW 15.8 H Plt Count 35 L Seg Neuts % (Manual) Lymphocytes % (Manual) Monocytes % (Manual) Nucleated RBC % Seg Neutrophils # Seg Neutrophils # Man Lymphocytes # (Manual) Monocytes # (Manual) PT INR POC ABG pH ABG pH 7.265 L POC ABG pCO2 POC ABG pO2 ABG pO2 35.4 L* ABG HCO3 ABG O2 Saturation 54.4 L ABG Base Excess -6.7 L ABG Hemoglobin 12.9 L Oxyhemoglobin 53.4 L Sodium 132 L Potassium 5.7 H Chloride 89.8 L Carbon Dioxide 19 L BUN 62 H Creatinine 6.4 H Glucose 151 H POC Glucose Lactic Acid Calcium 5.2 L* D Phosphorus Magnesium Total Bilirubin 7.80 H Direct Bilirubin AST 682 H ALT 130 H Alkaline Phosphatase 167 H Total Creatine Kinase CK-MB (CK-2) Troponin T C-Reactive Protein Total Protein 4.8 L Albumin 2.3 L Triglycerides LDL Cholesterol Direct HDL Cholesterol Free T4 PTH Intact Urine WBC (Auto) Urine Creatinine Salicylates Acetaminophen 03/19/19 03/19/19 03/19/19 05:49 09:16 09:50 WBC RBC Hgb Hct RDW Plt Count Seg Neuts % (Manual) Lymphocytes % (Manual) Monocytes % (Manual) Nucleated RBC % Seg Neutrophils # Seg Neutrophils # Man Lymphocytes # (Manual) Monocytes # (Manual) PT INR POC ABG pH 7.222 L ABG pH POC ABG pCO2 56.6 H POC ABG pO2 ABG pO2 ABG HCO3 ABG O2 Saturation ABG Base Excess ABG Hemoglobin Oxyhemoglobin Sodium Potassium Chloride Carbon Dioxide BUN Creatinine Glucose POC Glucose 154 H Lactic Acid 2.70 H* Calcium Phosphorus Magnesium Total Bilirubin Direct Bilirubin AST ALT Alkaline Phosphatase Total Creatine Kinase CK-MB (CK-2) Troponin T C-Reactive Protein Total Protein Albumin Triglycerides LDL Cholesterol Direct HDL Cholesterol Free T4 PTH Intact Urine WBC (Auto) Urine Creatinine Salicylates Acetaminophen 03/19/19 03/19/19 03/19/19 09:50 11:28 17:58 WBC RBC Hgb Hct RDW Plt Count Seg Neuts % (Manual) Lymphocytes % (Manual) Monocytes % (Manual) Nucleated RBC % Seg Neutrophils # Seg Neutrophils # Man Lymphocytes # (Manual) Monocytes # (Manual) PT INR POC ABG pH 7.250 L ABG pH POC ABG pCO2 52.6 H POC ABG pO2 ABG pO2 ABG HCO3 ABG O2 Saturation ABG Base Excess ABG Hemoglobin Oxyhemoglobin Sodium Potassium Chloride Carbon Dioxide BUN Creatinine Glucose POC Glucose 160 H Lactic Acid Calcium Phosphorus Magnesium Total Bilirubin Direct Bilirubin AST ALT Alkaline Phosphatase Total Creatine Kinase 85580 H CK-MB (CK-2) Troponin T C-Reactive Protein Total Protein Albumin Triglycerides LDL Cholesterol Direct HDL Cholesterol Free T4 PTH Intact Urine WBC (Auto) Urine Creatinine Salicylates Acetaminophen 03/19/19 03/19/19 03/20/19 19:48 21:03 02:16 WBC RBC Hgb Hct RDW Plt Count Seg Neuts % (Manual) Lymphocytes % (Manual) Monocytes % (Manual) Nucleated RBC % Seg Neutrophils # Seg Neutrophils # Man Lymphocytes # (Manual) Monocytes # (Manual) PT INR POC ABG pH 7.279 L ABG pH POC ABG pCO2 50.3 H POC ABG pO2 129 H ABG pO2 ABG HCO3 ABG O2 Saturation ABG Base Excess ABG Hemoglobin Oxyhemoglobin Sodium Potassium Chloride Carbon Dioxide BUN Creatinine Glucose POC Glucose 119 H 119 H Lactic Acid Calcium Phosphorus Magnesium Total Bilirubin Direct Bilirubin AST ALT Alkaline Phosphatase Total Creatine Kinase CK-MB (CK-2) Troponin T C-Reactive Protein Total Protein Albumin Triglycerides LDL Cholesterol Direct HDL Cholesterol Free T4 PTH Intact Urine WBC (Auto) Urine Creatinine Salicylates Acetaminophen 03/20/19 03/20/19 03/20/19 04:23 05:05 09:30 WBC 36.3 H RBC Hgb Hct RDW 15.5 H Plt Count 29 L Seg Neuts % (Manual) Lymphocytes % (Manual) Monocytes % (Manual) Nucleated RBC % Seg Neutrophils # Seg Neutrophils # Man Lymphocytes # (Manual) Monocytes # (Manual) PT INR POC ABG pH ABG pH POC ABG pCO2 POC ABG pO2 280 H ABG pO2 ABG HCO3 ABG O2 Saturation ABG Base Excess ABG Hemoglobin Oxyhemoglobin Sodium Potassium Chloride Carbon Dioxide BUN Creatinine Glucose POC Glucose 115 H Lactic Acid Calcium Phosphorus Magnesium Total Bilirubin Direct Bilirubin AST ALT Alkaline Phosphatase Total Creatine Kinase CK-MB (CK-2) Troponin T C-Reactive Protein Total Protein Albumin Triglycerides LDL Cholesterol Direct HDL Cholesterol Free T4 PTH Intact Urine WBC (Auto) Urine Creatinine Salicylates Acetaminophen 03/20/19 03/20/19 03/20/19 09:30 09:30 11:34 WBC RBC Hgb Hct RDW Plt Count Seg Neuts % (Manual) Lymphocytes % (Manual) Monocytes % (Manual) Nucleated RBC % Seg Neutrophils # Seg Neutrophils # Man Lymphocytes # (Manual) Monocytes # (Manual) PT INR POC ABG pH ABG pH POC ABG pCO2 POC ABG pO2 ABG pO2 ABG HCO3 ABG O2 Saturation ABG Base Excess ABG Hemoglobin Oxyhemoglobin Sodium 131 L Potassium Chloride 92.3 L Carbon Dioxide 20 L BUN 68 H Creatinine 6.1 H Glucose 164 H POC Glucose 141 H Lactic Acid Calcium 5.3 L* Phosphorus Magnesium Total Bilirubin 9.50 H Direct Bilirubin AST 381 H ALT 116 H Alkaline Phosphatase 255 H Total Creatine Kinase 48799 H CK-MB (CK-2) Troponin T C-Reactive Protein Total Protein 5.1 L Albumin 2.3 L Triglycerides LDL Cholesterol Direct HDL Cholesterol Free T4 PTH Intact Urine WBC (Auto) Urine Creatinine Salicylates Acetaminophen 03/20/19 03/20/19 03/20/19 14:41 14:45 18:50 WBC RBC Hgb Hct RDW Plt Count Seg Neuts % (Manual) Lymphocytes % (Manual) Monocytes % (Manual) Nucleated RBC % Seg Neutrophils # Seg Neutrophils # Man Lymphocytes # (Manual) Monocytes # (Manual) PT INR POC ABG pH ABG pH POC ABG pCO2 POC ABG pO2 ABG pO2 ABG HCO3 ABG O2 Saturation ABG Base Excess ABG Hemoglobin Oxyhemoglobin Sodium Potassium Chloride Carbon Dioxide BUN Creatinine Glucose POC Glucose 117 H Lactic Acid 2.90 H* Calcium Phosphorus Magnesium Total Bilirubin Direct Bilirubin AST ALT Alkaline Phosphatase Total Creatine Kinase CK-MB (CK-2) Troponin T C-Reactive Protein 13.30 H Total Protein Albumin Triglycerides LDL Cholesterol Direct HDL Cholesterol Free T4 PTH Intact Urine WBC (Auto) Urine Creatinine Salicylates Acetaminophen 03/20/19 03/21/19 03/21/19 21:55 04:26 04:26 WBC 37.8 H RBC Hgb Hct RDW 15.4 H Plt Count 36 L Seg Neuts % (Manual) 93.0 H Lymphocytes % (Manual) 3.0 L Monocytes % (Manual) Nucleated RBC % 1.0 H Seg Neutrophils # 34.6 H Seg Neutrophils # Man 35.2 H Lymphocytes # (Manual) 1.1 L Monocytes # (Manual) PT INR POC ABG pH ABG pH POC ABG pCO2 POC ABG pO2 ABG pO2 ABG HCO3 ABG O2 Saturation ABG Base Excess ABG Hemoglobin Oxyhemoglobin Sodium 131 L Potassium Chloride 90.7 L Carbon Dioxide 21 L BUN 69 H Creatinine 5.7 H Glucose 170 H POC Glucose 128 H Lactic Acid Calcium 6.1 L D Phosphorus Magnesium Total Bilirubin 9.50 H Direct Bilirubin AST 308 H ALT 124 H Alkaline Phosphatase 327 H Total Creatine Kinase 51390 H CK-MB (CK-2) Troponin T C-Reactive Protein Total Protein 5.7 L Albumin 2.6 L Triglycerides LDL Cholesterol Direct HDL Cholesterol Free T4 PTH Intact Urine WBC (Auto) Urine Creatinine Salicylates Acetaminophen 03/21/19 03/21/19 03/21/19 05:17 05:39 08:29 WBC RBC Hgb Hct RDW Plt Count Seg Neuts % (Manual) Lymphocytes % (Manual) Monocytes % (Manual) Nucleated RBC % Seg Neutrophils # Seg Neutrophils # Man Lymphocytes # (Manual) Monocytes # (Manual) PT INR POC ABG pH ABG pH POC ABG pCO2 POC ABG pO2 209 H ABG pO2 ABG HCO3 ABG O2 Saturation ABG Base Excess ABG Hemoglobin Oxyhemoglobin Sodium Potassium Chloride Carbon Dioxide BUN Creatinine Glucose POC Glucose 145 H Lactic Acid Calcium Phosphorus Magnesium Total Bilirubin Direct Bilirubin AST ALT Alkaline Phosphatase Total Creatine Kinase 61551 H CK-MB (CK-2) Troponin T C-Reactive Protein Total Protein Albumin Triglycerides LDL Cholesterol Direct HDL Cholesterol Free T4 PTH Intact Urine WBC (Auto) Urine Creatinine Salicylates Acetaminophen 03/21/19 03/21/19 03/21/19 08:29 11:43 12:00 WBC RBC Hgb Hct RDW Plt Count Seg Neuts % (Manual) Lymphocytes % (Manual) Monocytes % (Manual) Nucleated RBC % Seg Neutrophils # Seg Neutrophils # Man Lymphocytes # (Manual) Monocytes # (Manual) PT INR POC ABG pH ABG pH POC ABG pCO2 POC ABG pO2 ABG pO2 ABG HCO3 ABG O2 Saturation ABG Base Excess ABG Hemoglobin Oxyhemoglobin Sodium Potassium Chloride Carbon Dioxide BUN Creatinine Glucose POC Glucose 123 H Lactic Acid 2.60 H* 2.20 H* Calcium Phosphorus Magnesium Total Bilirubin Direct Bilirubin AST ALT Alkaline Phosphatase Total Creatine Kinase CK-MB (CK-2) Troponin T C-Reactive Protein Total Protein Albumin Triglycerides LDL Cholesterol Direct HDL Cholesterol Free T4 PTH Intact Urine WBC (Auto) Urine Creatinine Salicylates Acetaminophen 03/21/19 03/21/19 03/21/19 14:11 18:28 19:32 WBC RBC Hgb Hct RDW Plt Count Seg Neuts % (Manual) Lymphocytes % (Manual) Monocytes % (Manual) Nucleated RBC % Seg Neutrophils # Seg Neutrophils # Man Lymphocytes # (Manual) Monocytes # (Manual) PT INR POC ABG pH 7.293 L ABG pH POC ABG pCO2 POC ABG pO2 ABG pO2 ABG HCO3 ABG O2 Saturation ABG Base Excess ABG Hemoglobin Oxyhemoglobin Sodium Potassium Chloride Carbon Dioxide BUN Creatinine Glucose POC Glucose 153 H Lactic Acid 2.10 H* Calcium Phosphorus Magnesium Total Bilirubin Direct Bilirubin AST ALT Alkaline Phosphatase Total Creatine Kinase CK-MB (CK-2) Troponin T C-Reactive Protein Total Protein Albumin Triglycerides LDL Cholesterol Direct HDL Cholesterol Free T4 PTH Intact Urine WBC (Auto) Urine Creatinine Salicylates Acetaminophen 03/21/19 03/22/19 03/22/19 23:38 05:08 05:51 WBC RBC Hgb Hct RDW Plt Count Seg Neuts % (Manual) Lymphocytes % (Manual) Monocytes % (Manual) Nucleated RBC % Seg Neutrophils # Seg Neutrophils # Man Lymphocytes # (Manual) Monocytes # (Manual) PT INR POC ABG pH 7.283 L ABG pH POC ABG pCO2 POC ABG pO2 53 L ABG pO2 ABG HCO3 ABG O2 Saturation ABG Base Excess ABG Hemoglobin Oxyhemoglobin Sodium Potassium Chloride Carbon Dioxide BUN Creatinine Glucose POC Glucose 149 H 131 H Lactic Acid Calcium Phosphorus Magnesium Total Bilirubin Direct Bilirubin AST ALT Alkaline Phosphatase Total Creatine Kinase CK-MB (CK-2) Troponin T C-Reactive Protein Total Protein Albumin Triglycerides LDL Cholesterol Direct HDL Cholesterol Free T4 PTH Intact Urine WBC (Auto) Urine Creatinine Salicylates Acetaminophen 03/22/19 03/22/19 03/22/19 08:00 08:00 18:19 WBC 36.7 H RBC Hgb 11.0 L Hct 33.5 L RDW 15.5 H Plt Count 43 L Seg Neuts % (Manual) 87.0 H Lymphocytes % (Manual) 7.0 L Monocytes % (Manual) Nucleated RBC % Seg Neutrophils # Seg Neutrophils # Man 31.9 H Lymphocytes # (Manual) Monocytes # (Manual) PT INR POC ABG pH ABG pH POC ABG pCO2 46.4 H POC ABG pO2 108 H ABG pO2 ABG HCO3 ABG O2 Saturation ABG Base Excess ABG Hemoglobin Oxyhemoglobin Sodium 132 L Potassium 5.6 H Chloride 89.6 L Carbon Dioxide 20 L BUN 101 H Creatinine 7.4 H Glucose 124 H POC Glucose Lactic Acid Calcium 5.2 L* Phosphorus Magnesium Total Bilirubin 2.80 H Direct Bilirubin AST 119 H ALT 86 H Alkaline Phosphatase 245 H Total Creatine Kinase CK-MB (CK-2) Troponin T C-Reactive Protein Total Protein 5.6 L Albumin 2.5 L Triglycerides LDL Cholesterol Direct HDL Cholesterol Free T4 PTH Intact Urine WBC (Auto) Urine Creatinine Salicylates Acetaminophen 03/22/19 03/23/19 03/23/19 20:37 04:49 05:28 WBC 35.9 H RBC Hgb 10.8 L Hct 33.2 L RDW 15.5 H Plt Count 49 L Seg Neuts % (Manual) 81.0 H Lymphocytes % (Manual) 3.5 L Monocytes % (Manual) Nucleated RBC % Seg Neutrophils # Seg Neutrophils # Man 29.1 H Lymphocytes # (Manual) Monocytes # (Manual) 1.4 H PT INR POC ABG pH 7.296 L ABG pH POC ABG pCO2 46.2 H POC ABG pO2 ABG pO2 ABG HCO3 ABG O2 Saturation ABG Base Excess ABG Hemoglobin Oxyhemoglobin Sodium 129 L Potassium 5.2 H Chloride 91.1 L Carbon Dioxide BUN 91 H Creatinine 6.6 H Glucose 190 H POC Glucose Lactic Acid Calcium 5.3 L* Phosphorus Magnesium Total Bilirubin 1.80 H Direct Bilirubin AST 80 H ALT 62 H Alkaline Phosphatase 209 H Total Creatine Kinase 9758 H CK-MB (CK-2) Troponin T C-Reactive Protein Total Protein 5.2 L Albumin 2.2 L Triglycerides LDL Cholesterol Direct HDL Cholesterol Free T4 PTH Intact Urine WBC (Auto) Urine Creatinine Salicylates Acetaminophen 03/23/19 03/23/19 03/23/19 05:28 05:31 11:33 WBC 29.7 H RBC 3.59 L Hgb 10.1 L Hct 31.1 L RDW 15.4 H Plt Count 47 L Seg Neuts % (Manual) 89.0 H Lymphocytes % (Manual) 6.0 L Monocytes % (Manual) Nucleated RBC % 1.0 H Seg Neutrophils # Seg Neutrophils # Man 26.4 H Lymphocytes # (Manual) Monocytes # (Manual) PT INR POC ABG pH ABG pH POC ABG pCO2 POC ABG pO2 ABG pO2 ABG HCO3 ABG O2 Saturation ABG Base Excess ABG Hemoglobin Oxyhemoglobin Sodium Potassium Chloride Carbon Dioxide BUN Creatinine Glucose POC Glucose 122 H 113 H Lactic Acid Calcium Phosphorus Magnesium Total Bilirubin Direct Bilirubin AST ALT Alkaline Phosphatase Total Creatine Kinase CK-MB (CK-2) Troponin T C-Reactive Protein Total Protein Albumin Triglycerides LDL Cholesterol Direct HDL Cholesterol Free T4 PTH Intact Urine WBC (Auto) Urine Creatinine Salicylates Acetaminophen 03/23/19 03/24/19 03/24/19 17:47 00:00 04:50 WBC 35.0 H RBC Hgb 10.4 L Hct 32.4 L RDW Plt Count 60 L Seg Neuts % (Manual) 93.0 H Lymphocytes % (Manual) 5.0 L Monocytes % (Manual) Nucleated RBC % 7.0 H Seg Neutrophils # Seg Neutrophils # Man 32.6 H Lymphocytes # (Manual) Monocytes # (Manual) PT INR POC ABG pH ABG pH POC ABG pCO2 POC ABG pO2 ABG pO2 ABG HCO3 ABG O2 Saturation ABG Base Excess ABG Hemoglobin Oxyhemoglobin Sodium Potassium Chloride Carbon Dioxide BUN Creatinine Glucose POC Glucose 111 H 108 H Lactic Acid Calcium Phosphorus Magnesium Total Bilirubin Direct Bilirubin AST ALT Alkaline Phosphatase Total Creatine Kinase CK-MB (CK-2) Troponin T C-Reactive Protein Total Protein Albumin Triglycerides LDL Cholesterol Direct HDL Cholesterol Free T4 PTH Intact Urine WBC (Auto) Urine Creatinine Salicylates Acetaminophen 03/24/19 03/24/19 03/24/19 04:50 05:06 12:55 WBC RBC Hgb Hct RDW Plt Count Seg Neuts % (Manual) Lymphocytes % (Manual) Monocytes % (Manual) Nucleated RBC % Seg Neutrophils # Seg Neutrophils # Man Lymphocytes # (Manual) Monocytes # (Manual) PT INR POC ABG pH ABG pH POC ABG pCO2 POC ABG pO2 ABG pO2 ABG HCO3 ABG O2 Saturation ABG Base Excess ABG Hemoglobin Oxyhemoglobin Sodium 134 L Potassium 5.1 H Chloride 95.3 L Carbon Dioxide 21 L BUN 85 H Creatinine 6.4 H Glucose 109 H POC Glucose 112 H 110 H Lactic Acid Calcium 5.8 L* Phosphorus Magnesium Total Bilirubin Direct Bilirubin AST ALT Alkaline Phosphatase Total Creatine Kinase 5747 H CK-MB (CK-2) Troponin T C-Reactive Protein Total Protein Albumin Triglycerides LDL Cholesterol Direct HDL Cholesterol Free T4 PTH Intact Urine WBC (Auto) Urine Creatinine Salicylates Acetaminophen 03/24/19 03/25/19 03/25/19 23:29 05:00 05:00 WBC RBC Hgb Hct RDW Plt Count Seg Neuts % (Manual) Lymphocytes % (Manual) Monocytes % (Manual) Nucleated RBC % Seg Neutrophils # Seg Neutrophils # Man Lymphocytes # (Manual) Monocytes # (Manual) PT INR POC ABG pH ABG pH POC ABG pCO2 POC ABG pO2 ABG pO2 ABG HCO3 ABG O2 Saturation ABG Base Excess ABG Hemoglobin Oxyhemoglobin Sodium 133 L Potassium Chloride 94.0 L Carbon Dioxide 21 L BUN 81 H Creatinine 6.4 H Glucose POC Glucose 109 H Lactic Acid Calcium 5.5 L* Phosphorus Magnesium Total Bilirubin Direct Bilirubin AST 80 H ALT Alkaline Phosphatase 202 H Total Creatine Kinase 3589 H CK-MB (CK-2) Troponin T C-Reactive Protein Total Protein 5.3 L Albumin 2.4 L Triglycerides LDL Cholesterol Direct HDL Cholesterol Free T4 PTH Intact 329.9 H Urine WBC (Auto) Urine Creatinine Salicylates Acetaminophen 03/25/19 03/25/19 03/26/19 05:00 06:30 04:30 WBC 23.3 H RBC 3.61 L Hgb 10.2 L Hct 31.2 L RDW Plt Count 57 L Seg Neuts % (Manual) 92.0 H Lymphocytes % (Manual) 6.0 L Monocytes % (Manual) Nucleated RBC % Seg Neutrophils # Seg Neutrophils # Man 21.4 H Lymphocytes # (Manual) Monocytes # (Manual) PT INR POC ABG pH ABG pH 7.326 L POC ABG pCO2 POC ABG pO2 ABG pO2 109.5 H 137.4 H ABG HCO3 18.8 L 18.6 L ABG O2 Saturation ABG Base Excess -4.4 L -6.8 L ABG Hemoglobin 10.1 L 9.9 L Oxyhemoglobin Sodium Potassium Chloride Carbon Dioxide BUN Creatinine Glucose POC Glucose Lactic Acid Calcium Phosphorus Magnesium Total Bilirubin Direct Bilirubin AST ALT Alkaline Phosphatase Total Creatine Kinase CK-MB (CK-2) Troponin T C-Reactive Protein Total Protein Albumin Triglycerides LDL Cholesterol Direct HDL Cholesterol Free T4 PTH Intact Urine WBC (Auto) Urine Creatinine Salicylates Acetaminophen 03/26/19 03/26/19 03/26/19 23:22 Unknown Unknown WBC 19.5 H RBC 3.44 L Hgb 9.8 L Hct 29.9 L RDW Plt Count 85 L Seg Neuts % (Manual) 95.0 H Lymphocytes % (Manual) 3.0 L Monocytes % (Manual) Nucleated RBC % Seg Neutrophils # Seg Neutrophils # Man 18.5 H Lymphocytes # (Manual) 0.6 L Monocytes # (Manual) PT INR POC ABG pH ABG pH POC ABG pCO2 POC ABG pO2 ABG pO2 ABG HCO3 ABG O2 Saturation ABG Base Excess ABG Hemoglobin Oxyhemoglobin Sodium 135 L Potassium 5.2 H D Chloride 92.2 L Carbon Dioxide 18 L BUN 109 H Creatinine 8.5 H Glucose 117 H POC Glucose 69 L Lactic Acid Calcium 4.5 L* D Phosphorus Magnesium Total Bilirubin Direct Bilirubin AST ALT Alkaline Phosphatase Total Creatine Kinase 4527 H CK-MB (CK-2) Troponin T C-Reactive Protein Total Protein Albumin Triglycerides LDL Cholesterol Direct HDL Cholesterol Free T4 PTH Intact Urine WBC (Auto) Urine Creatinine Salicylates Acetaminophen 03/27/19 03/27/19 04:30 04:30 WBC RBC Hgb Hct RDW Plt Count Seg Neuts % (Manual) Lymphocytes % (Manual) Monocytes % (Manual) Nucleated RBC % Seg Neutrophils # Seg Neutrophils # Man Lymphocytes # (Manual) Monocytes # (Manual) PT INR POC ABG pH ABG pH POC ABG pCO2 POC ABG pO2 ABG pO2 ABG HCO3 ABG O2 Saturation ABG Base Excess ABG Hemoglobin Oxyhemoglobin Sodium 135 L Potassium Chloride 93.5 L Carbon Dioxide BUN 84 H Creatinine 7.1 H Glucose POC Glucose Lactic Acid Calcium 5.0 L* Phosphorus Magnesium Total Bilirubin Direct Bilirubin AST 78 H ALT Alkaline Phosphatase 135 H Total Creatine Kinase 4677 H CK-MB (CK-2) Troponin T C-Reactive Protein Total Protein 4.8 L Albumin 2.3 L Triglycerides 409 H LDL Cholesterol Direct HDL Cholesterol Free T4 PTH Intact Urine WBC (Auto) Urine Creatinine Salicylates Acetaminophen Allied health notes reviewed: RT
[2019-03-27 09:32] LABS: Hemoglobin 9.9 gm/dl (11.8-15.2); Mean Corpuscular HGB Conc 33 % (32-34); Mean Corpuscular Volume 88 fl (84-94); Red Blood Count 3.42 M/mm3 (3.65-5.03); Red Cell Distribution Width 14.7 % (13.2-15.2)
[2019-03-27 09:40] LABS: Platelet Count 84 K/mm3 (140-440)
[2019-03-27] MEDS: CALCITRIOL 0.5 MCG CAP PO SCH (09:56)
[2019-03-27] MEDS: HYDROCORTISONE SOD SUCC 100 MG/2 ML VIAL IV SCH (09:57)
[2019-03-27] MEDS: QUEtiapine 25 MG TAB PO SCH ×2 (09:57→21:18)
[2019-03-27] MEDS: ERGOCALCIFEROL (VIT D2) 50,000 UNIT CAP PO SCH (09:58)
[2019-03-27] MEDS: FAMOTIDINE 20 MG/2 ML INJ IV SCH (09:58)
[2019-03-27] MEDS: DOXYCYCLINE HYCLATE 100 MG in SODIUM CHLORIDE 0.9% 250ML 250 ML IV SCH (09:59)
[2019-03-27] MEDS: cefTRIAXone/NS 2 GM/100 ML 2 GM/100 ML BAG IV SCH (09:59)
--- NOTE | 2019-03-27 09:59 | Progress Note ---
Assessment and Plan 1. Acute kidney injury: Vasomotor RUBEN in the setting of shock / volume depletion / Rhabdo. Baseline renal function is unknown. Patient remain anuric / oliguric. CT abdomen was negative for obstructive nephropathy. Monitor renal function. Renal prognosis is guarded. Avoid nephrotoxic agents. Meds dosage based on GFR. Patient was started on hemodialysis on 03/18/19 due to worsening metabolic acidosis and hyperkalemia. Hemodialysis: 03/18, 03/19, 03/20, 03/22, 03/23, 03/24, 03/26. Bladder scan today. 2. FEN: Hyperkalemia, s/p HD yesterday. Hyponatremia, monitor. Metabolic acidosis, monitor. Volume overload, UF with HD as tolerated. Replete Calcium. Monitor lytes. 3. Septic shock: On broad spectrum Abx. Followed by ID. Currently on Midodrine. 4. Rhabdomyolysis: Follow CK level. 5. SVT / V.tach: Followed by Cards. 6. Respiratory failure: On vent. 7. Multiple organ failure. 8. Elevated transaminases. 9. Encephalopathy. Examination: General appearance: well-developed, appears stated age, obese, intubated, on vent HEENT: Atraumatic EYES: STIVEN Neck: supple Respiratory: coarse breath sounds Cardiology: regular, S1S2 heard, no murmurs Gastrointestinal: no tenderness, obese, BS heard, scrotal edema noted Integumentary: no rash noted Neurologic: opens eyes Ext: trace edema of all 4 extremities Hemodialysis access: R IJ temp catheter Subjective Date of service: 03/27/19 Principal diagnosis: Septic Shock; Ac. hypoxemic resp failure; Renzo. PNA; Rhabdomyolysis; RUBEN Interval history: Patient was seen and examined at the bedside. Remain on the vent. Objective - Vital Signs Vital signs: Vital Signs - 12hr 03/26/19 03/26/19 03/26/19 22:00 22:30 22:47 Temperature Pulse Rate 134 H 129 H 134 H Pulse Rate [ Anterior Bilateral Throughout] Pulse Rate [ From Monitor] Respiratory 20 19 Rate Respiratory Rate [Anterior Bilateral Throughout] Blood Pressure 116/53 102/49 112/62 O2 Sat by Pulse 97 94 Oximetry 03/26/19 03/26/19 03/26/19 23:00 23:27 23:30 Temperature 100.6 F H Pulse Rate 125 H 121 H Pulse Rate [ Anterior Bilateral Throughout] Pulse Rate [ From Monitor] Respiratory 24 26 H Rate Respiratory Rate [Anterior Bilateral Throughout] Blood Pressure 110/61 102/61 O2 Sat by Pulse 99 99 Oximetry 03/26/19 03/26/19 03/27/19 23:39 23:42 00:00 Temperature Pulse Rate 144 H 124 H 132 H Pulse Rate [ Anterior Bilateral Throughout] Pulse Rate [ 119 H From Monitor] Respiratory 28 H 28 H Rate Respiratory Rate [Anterior Bilateral Throughout] Blood Pressure 114/66 102/61 107/65 O2 Sat by Pulse 99 99 99 Oximetry 03/27/19 03/27/19 03/27/19 00:30 01:00 01:30 Temperature Pulse Rate 129 H 95 H 123 H Pulse Rate [ Anterior Bilateral Throughout] Pulse Rate [ From Monitor] Respiratory 26 H 27 H 27 H Rate Respiratory Rate [Anterior Bilateral Throughout] Blood Pressure 107/64 107/64 107/52 O2 Sat by Pulse 98 98 98 Oximetry 03/27/19 03/27/19 03/27/19 02:00 02:30 03:00 Temperature Pulse Rate 126 H 127 H 135 H Pulse Rate [ Anterior Bilateral Throughout] Pulse Rate [ From Monitor] Respiratory 26 H 29 H 25 H Rate Respiratory Rate [Anterior Bilateral Throughout] Blood Pressure 112/48 106/61 87/42 O2 Sat by Pulse 98 98 98 Oximetry 03/27/19 03/27/19 03/27/19 03:29 03:30 04:00 Temperature 102.1 F H Pulse Rate 112 H 83 Pulse Rate [ Anterior Bilateral Throughout] Pulse Rate [ 127 H From Monitor] Respiratory 26 H 26 H Rate Respiratory Rate [Anterior Bilateral Throughout] Blood Pressure 96/44 92/48 O2 Sat by Pulse 98 99 Oximetry 03/27/19 03/27/19 03/27/19 04:22 04:30 05:00 Temperature Pulse Rate 139 H 126 H 125 H Pulse Rate [ Anterior Bilateral Throughout] Pulse Rate [ From Monitor] Respiratory 33 H 24 Rate Respiratory Rate [Anterior Bilateral Throughout] Blood Pressure 92/48 115/65 119/63 O2 Sat by Pulse 99 98 98 Oximetry 03/27/19 03/27/19 03/27/19 05:30 06:00 06:30 Temperature Pulse Rate 126 H 138 H 149 H Pulse Rate [ Anterior Bilateral Throughout] Pulse Rate [ From Monitor] Respiratory 27 H 29 H 55 H Rate Respiratory Rate [Anterior Bilateral Throughout] Blood Pressure 124/72 123/75 121/65 O2 Sat by Pulse 98 98 98 Oximetry 03/27/19 03/27/19 03/27/19 07:00 07:30 07:36 Temperature Pulse Rate 129 H 154 H 141 H Pulse Rate [ Anterior Bilateral Throughout] Pulse Rate [ From Monitor] Respiratory 29 H 40 H Rate Respiratory Rate [Anterior Bilateral Throughout] Blood Pressure 107/70 111/69 111/69 O2 Sat by Pulse 98 98 Oximetry 03/27/19 03/27/19 03/27/19 08:00 08:30 08:42 Temperature 102.4 F H Pulse Rate 132 H 135 H Pulse Rate [ 90 Anterior Bilateral Throughout] Pulse Rate [ 132 H From Monitor] Respiratory 33 H 33 H 36 H Rate Respiratory 33 H Rate [Anterior Bilateral Throughout] Blood Pressure 116/68 121/67 O2 Sat by Pulse 98 98 Oximetry 03/27/19 08:43 Temperature Pulse Rate Pulse Rate [ Anterior Bilateral Throughout] Pulse Rate [ From Monitor] Respiratory 34 H Rate Respiratory Rate [Anterior Bilateral Throughout] Blood Pressure O2 Sat by Pulse Oximetry - Lab 03/27/19 09:00 03/27/19 04:30 Most recent lab results ABG pH 7.326 pH Units (7.350-7.450) L 03/26/19 04:30 ABG pCO2 36.4 mm Hg 03/26/19 04:30 ABG pO2 137.4 mm Hg (80.0-90.0) H 03/26/19 04:30 ABG HCO3 18.6 mmol/L (20.0-26.0) L 03/26/19 04:30 ABG O2 Saturation 98.6 % (95.0-99.0) 03/26/19 04:30 Calcium 5.0 mg/dL (8.4-10.2) L* 03/27/19 04:30 Phosphorus 7.30 mg/dL (2.5-4.5) H 03/17/19 03:45 Magnesium 2.40 mg/dL (1.7-2.3) H 03/18/19 08:40 Urine Creatinine 106.6 mg/dL (0.1-20.0) H 03/17/19 16:05 Urine Sodium 95 mmol/L 03/17/19 16:05 Medications & Allergies - Medications Allergies/Adverse Reactions: Allergies No Known Allergies Allergy (Unverified 03/16/19 17:17) Home Medications: Home Medications Medication Instructions Recorded Confirmed Last Taken Type Unobtainable 03/18/19 03/18/19 Unknown History Active Medications: Generic Name Dose Route Start Last Admin Trade Name Freq PRN Reason Stop Dose Admin Acetaminophen 650 mg 03/26/19 22:15 03/27/19 08:42 Tylenol PO 650 mg Q4H PRN Administration Pain, Mild (1-3), [id number]> Albuterol/Ipratropium 1 ampul 03/19/19 20:00 03/27/19 08:08 Duoneb *Not For Prn Use* IH 1 ampul Q4HRT PAOLO Administration Lipase/Protease/Amylase 1 each 03/17/19 14:45 Pancreaze 10,500 Unit FEEDTUBE PRN PRN For Clogged Feeding Tube Calcitriol 0.5 mcg 03/26/19 11:00 03/26/19 16:19 Rocaltrol PO 0.5 mcg QDAY PAOLO Administration Dextrose 50 gm 03/19/19 18:39 03/26/19 23:26 D50w (25gm) Vial IV 50 gm PRN PRN Administration Hypoglycemia Ergocalciferol 50,000 unit 03/25/19 12:00 03/26/19 09:58 Vitamin D2 PO 03/27/19 10:01 50,000 unit DAILY PAOLO Administration Famotidine 20 mg 03/20/19 10:00 03/26/19 09:57 Pepcid IV 20 mg DAILY PAOLO Administration Fentanyl 50 mcg 03/16/19 16:06 03/24/19 20:08 Sublimaze IV 50 mcg Q10MIN PRN Administration ANALGESIA Fentanyl 50 mcg 03/26/19 12:00 03/27/19 08:43 Sublimaze IV 50 mcg Q1H PRN Administration Pain, Moderate (4-6) Hydrocortisone Sodium Succinate 50 mg 03/26/19 10:00 03/26/19 09:57 Solu-Cortef IV 03/27/19 10:01 50 mg Q24HR PAOLO Administration Hydrophilic Ointment 1 applic 03/16/19 15:50 Vaseline Lip Therapy TP Q2HR PRN Dry Lips Phenylephrine HCl 100 mg/ 100 mls @ 3 mls/hr 03/17/19 02:30 03/19/19 18:48 Sodium Chloride IV Infused TITR PAOLO Titration Protocol 50 MCG/MIN Ceftriaxone Sodium 2 gm in 100 mls @ 200 mls/hr 03/17/19 12:00 03/26/19 22:48 Rocephin/Ns 2 Gm/100 Ml IV 200 mls/hr Q12HR PAOLO Administration Protocol Doxycycline Hyclate 100 mg/ 250 mls @ 250 mls/hr 03/17/19 12:00 03/26/19 21:33 Sodium Chloride IV 250 mls/hr Q12HR PAOLO Administration Protocol Sodium Chloride 100 mls @ 999 mls/hr 03/26/19 10:38 Nacl 0.9% IV NEYMAR PRN Hypotension Fentanyl Citrate 2,000 mcg in 100 mls @ 7.85 mls/hr 03/26/19 12:00 Fentanyl Drip Premix IV TITR PAOLO Protocol 1 MCG/KG/HR Vancomycin HCl 2,000 mg/ 540 mls @ 250 mls/hr 03/27/19 10:00 Sodium Chloride IV 03/27/19 12:09 ONCE ONE Dexmedetomidine HCl 400 mcg/ 104 mls @ 8.164 mls/hr 03/27/19 10:00 Sodium Chloride IV TITRATE PAOLO Protocol 0.2 MCG/KG/HR Sodium Chloride 250 mls @ 999 mls/hr 03/27/19 10:00 Nacl 0.9% 250ml IV 03/27/19 10:15 ONCE ONE Lorazepam 2 mg 03/26/19 11:54 03/27/19 02:44 Ativan IV 2 mg Q1H PRN Administration Agitation Metoprolol Tartrate 25 mg 03/26/19 17:00 03/27/19 07:36 Lopressor PO 25 mg TID PAOLO Administration Midodrine 10 mg 03/18/19 20:00 03/27/19 04:00 Proamatine PO 10 mg Q8H PAOLO Administration Multi-Ingred Cream/Lotion/Oil/Oint 1 applic 03/16/19 15:50 03/19/19 20:10 Artificial Tears Ophth Oint OU 1 applic Q4HR PRN Administration Dry Eye(s) Ondansetron HCl 4 mg 03/16/19 22:21 Zofran IV Q8H PRN Nausea And Vomiting Quetiapine Fumarate 50 mg 03/27/19 10:00 Seroquel PO BID PAOLO Simple Syrup 15 ml 03/17/19 14:45 03/26/19 23:19 Simple Syrup FEEDTUBE 15 ml PRN PRN Administration Hypoglycemia Simple Syrup 30 ml 03/17/19 14:45 Simple Syrup FEEDTUBE PRN PRN Hypoglycemia Sodium Bicarbonate 325 mg 03/17/19 14:45 Sodium Bicarbonate FEEDTUBE PRN PRN For Clogged Feeding Tube
[2019-03-27] MEDS ORDERED: SODIUM CHLORIDE 0.9% 250ML 250 ML IV ONE (10:00)
[2019-03-27] MEDS ORDERED: VANCOMYCIN 2,000 MG in SODIUM CHLORIDE 0.9% 500 ML 500 ML IV ONE (10:00)
--- NOTE | 2019-03-27 10:10 | Progress Note ---
Assessment and Plan S/p cardiopulmonary arrest Upon admission on 03/16/2019, pt initially in SVT 250s and received 50 J synchronized shock, rhythm deteriorated to a polymorphic V. tach and then monomorphic V. tach and then patient was defibrillated at 325 J. Patient rhythm then became sinus. Pt was subsequently intubated in ED. Echo showed EF 40-45%, impaired relaxation. Leroy negative for AMI. ECGs with no acute ischemic changes. Plan for ischemic evaluation if/when medically stabilized. Acute respiratory failure Intubated. Management per pulmonary. Transient SVT Torsades sparkle pointes / Ventricular tachycardia Plan for ischemic evaluation if/when medically stabilized. Paroxysmal atrial fibrillation with RVR Optimize HR - initiate PO amio. Consider increasing PO lopressor dosage if BPs permit. No systemic AC regarding AFib in setting of anemia and thrombocytopenia. Cardiomyopathy EF 40-45% Cont lopressor. ACEI/ARB at this time in setting of acute renal failure. Plan for ischemic evaluation if/when medically stabilized. AMS Neurology following. Head CT with no definite acute findings. AMS secondary to metabolic encephalopathy per neurology. Septic shock / probable aspiration PNA / ? meningitis / right axillary cellulitis Currently weaned off vasopressor support. ID following. Per ID, ?Infectious etiology v/s possibility of Neuroleptic Malignant Syndrome given psych history, high fever of 105F and extremely elevated CPK of >100K. Pt remains febrile. Blood cultures negative to date. Abx per ID team. Unable to perform lumbar puncture at this time in setting of thrombocytopenia. Acute renal failure / Rhabdomyolysis Initiated on HD. Nephrology following. Hyperkalemia / Hyponatremia / Hypocalcemia Electrolyte management per nephrology. Enteritis Abdomen CT showed moderately dilated small bowel bowel loops in the mid to upper abdomen anteriorly with mild associated bowel wall thickening. Localized enteritis and small bowel ischemia should be considered. General surgery following. Per general surgery, noevidence of peritonitis and no definitive indication for surgical intervention. Pt currently tolerating low volume TF infusion. Elevated LFTs ? shock liver. LFTs improving. Anemia / Thrombocytopenia Monitor CBC. H/o psych disorder Obesity The patient has been seen in conjunction with Dr. Rubalcava who agrees with the assessment and plan of care. Subjective Date of service: 03/27/19 Principal diagnosis: Septic Shock; Ac. hypoxemic resp failure; Renzo. PNA; Rhabdomyolysis; RUBEN Interval history: pt remains intubated, moving arms and legs, no purposeful response noted, sedated, currently weaned off vasopressors. in AFib with RVR on tele, HR 120 - 130s. Objective Last Vital Signs Temp 102.4 F H 03/27/19 08:00 Pulse 135 H 03/27/19 08:30 Resp 34 H 03/27/19 08:43 BP 121/67 03/27/19 08:30 Pulse Ox 98 03/27/19 08:30 - Physical Examination General: Other (intubated, sedated) HEENT: Positive: PERRL Neck: Positive: neck supple Cardiac: Positive: irregularly irregular, S1/S2 Lungs: Positive: Decreased Breath Sounds, Ventilated Respirations Neuro: Positive: Other (intubated) Abdomen: Positive: Unremarkable /Rectal: Other (deferred) Skin: Positive: Clear Musculoskeletal: Decreased Range of Motion Extremities: Present: lower extr. pulses (weak, thready ) - Labs and Meds Cardiac Enzymes 03/27/19 Range/Units 04:30 AST 78 H (5-40) units/L Lipids 03/27/19 Range/Units 04:30 Triglycerides 409 H (2-149) mg/dL CBC 03/27/19 Range/Units 09:00 WBC 19.2 H (4.5-11.0) K/mm3 RBC 3.42 L (3.65-5.03) M/mm3 Hgb 9.9 L (11.8-15.2) gm/dl Hct 30.0 L (35.5-45.6) % Plt Count 84 L (140-440) K/mm3 Comprehensive Metabolic Panel 03/27/19 Range/Units 04:30 Sodium 135 L (137-145) mmol/L Potassium 4.0 D (3.6-5.0) mmol/L Chloride 93.5 L (98-107) mmol/L Carbon Dioxide 23 (22-30) mmol/L BUN 84 H (9-20) mg/dL Creatinine 7.1 H (0.8-1.5) mg/dL Glucose 85 (75-100) mg/dL Calcium 5.0 L* (8.4-10.2) mg/dL AST 78 H (5-40) units/L ALT 43 (7-56) units/L Alkaline Phosphatase 135 H (35-129) units/L Total Protein 4.8 L (6.3-8.2) g/dL Albumin 2.3 L (3.9-5) g/dL - Imaging and Cardiology Echo: report reviewed ( EF 40-45%, impaired relaxation. ) - Allied health notes Allied health notes reviewed: RT
[2019-03-27] MEDS: DEXMEDETOMIDINE 400 MCG in SODIUM CHLORIDE 0.9% 100 ML IV SCH ×2 (10:14→14:56)
[2019-03-27] MEDS ORDERED: AMIODARONE 200 MG TAB PO SCH (11:00)
--- NOTE | 2019-03-27 11:56 | Progress Note ---
Assessment and Plan Assessment and plan: 43-year-old man with history of GERD and obesity who presented to the hospital altered mental status, he was visiting from [place] and brought in by his friend. He has been feeling ill for a few days and have left eye discharge and there was mention of right axilla/patient was more lethargic, had trouble breathing and then suddenly could not walk on his own. When he came to the ER was unable to speak or follow commands, in the ER he was found to have SVT with heart rate in the 250s. The patient was shocks and medicated. He became more confused and had trouble protecting his airway, he was then intubated Vitals reviewed, tachycardic in the 90s, T-max 101.8 Blood pressure as low as 86/38 Labs, white count 19.5, hemoglobin 9.8, potassium 5.2, sodium 135, creatinine 8.5, calcium 4.5, CK 4527 -[facility] Status post, cardiopulmonary arrest, status post shock for SVT in 250s after which she deteriorated into polymorphic V. tach for which she was shocked again. And then intubated in the ER Paroxysmal A. fib with RVR Torsade sparkle points/ventricular tachycardia EF 40% * Cardiology input appreciated, continue amiodarone drip, no beta-adela or CHRISTIN given hypotension, will need ischemic cardiac stratification when improved Right IJ nonocclusive thrombosis Discussed with vascular surgery, will start on heparin to see if he tolerates it, platelets today are adequate Septic shock with multiorgan failure, off pressors for 48 hours Aspiration pneumonia Brain MRI ordered, follow-up blood cultures, venous ultrasound to rule out DVT, LP awaited due to low platelets. Continue antibiotics, tickborne serologies pending, prognosis guarded Acute kidney injury, rhabdomyolysis, hyperkalemia Continue dialysis per nephrology Acute hypoxic respiratory failure on mechanical ventilator greater than 96 hours Continue ventilator, continue to attempt to wean per the monotype caster Presume ARDS Profound hypocalcemia Being repleted, likely related to renal failure Acute Metabolic Encephalopathy Severe metabolic acidosis, rhabdomyolysis Thrombocytopenia Likely due to sepsis, continue to monitor Advanced care planning, family opting against DNR, wants all done. Will like a call if patient codes as they may opt for limited code The high probability of a clinically significant, sudden or life threatening deterioration of the [multiple organs] system(s) required my full and direct attention, intervention and personal management. The aggregate critical care time was [45] minutes. This time is in addition to time spent performing reported procedures but includes the following: [x] Data Review and interpretation [x] Patient assessment and monitoring of vital signs [x] Documentation [x] Medication orders and management History Interval history: Continues to have fever, no seizure, no agitation, no vomiting, no melena, no hemoptysis or hematemesis Remains intubated and sedated Hospitalist Physical - Physical exam Narrative exam: General.: Appears ill, intubated HEENT: Moist mucous membranes, extraocular muscles intact, no lymphadenopathy Neck: supple Cardiac: S1-S2 heard Lungs: Decreased breath sounds, ventilated breath sounds Abdomen: soft , nontender, nondistended, bowel sounds positive Extremities: no edema clubbing or cyanosis Skin: no rash or lesions Neurologic: Intubated and sedated Psych: Intubated and sedated - Constitutional Vitals: Temp Pulse Resp BP Pulse Ox 102.4 F H 91 H 36 H 150/75 97 03/27/19 08:00 03/27/19 11:30 03/27/19 11:30 03/27/19 11:30 03/27/19 11:30 General appearance: Present: severe distress, obese Results - Labs CBC & Chem 7: 03/29/19 06:22 03/29/19 06:22 Labs: Laboratory Last Values WBC 19.2 K/mm3 (4.5-11.0) H 03/27/19 09:00 RBC 3.42 M/mm3 (3.65-5.03) L 03/27/19 09:00 Hgb 9.9 gm/dl (11.8-15.2) L 03/27/19 09:00 Hct 30.0 % (35.5-45.6) L 03/27/19 09:00 MCV 88 fl (84-94) 03/27/19 09:00 MCH 29 pg (28-32) 03/27/19 09:00 MCHC 33 % (32-34) 03/27/19 09:00 RDW 14.7 % (13.2-15.2) 03/27/19 09:00 Plt Count 84 K/mm3 (140-440) L 03/27/19 09:00 [place] % (Auto) 1.6 % (0.0-7.3) 03/21/19 04:26 [place] # 0.6 K/mm3 (0.0-0.8) 03/21/19 04:26 Add Manual Diff Complete 03/26/19 Unknown Total Counted 100 03/26/19 Unknown Seg Neutrophils % Pack Master 03/26/19 Unknown Seg Neuts % (Manual) 95.0 % (40.0-70.0) H 03/26/19 Unknown Band Neutrophils % 0 % 03/26/19 Unknown Lymphocytes % (Manual) 3.0 % (13.4-35.0) L 03/26/19 Unknown Reactive Lymphs % (Man) 0 % 03/26/19 Unknown Monocytes % (Manual) 1.0 % (0.0-7.3) 03/26/19 Unknown Eosinophils % (Manual) 0 % (0.0-4.3) 03/26/19 Unknown Basophils % (Manual) 0 % (0.0-1.8) 03/26/19 Unknown Metamyelocytes % 1.0 % 03/26/19 Unknown Myelocytes % 0 % 03/26/19 Unknown Promyelocytes % 0 % 03/26/19 Unknown Blast Cells % 0 % 03/26/19 Unknown Nucleated RBC % Not Reportable 03/26/19 Unknown Seg Neutrophils # 34.6 K/mm3 (1.8-7.7) H 03/21/19 04:26 Seg Neutrophils # Man 18.5 K/mm3 (1.8-7.7) H 03/26/19 Unknown Band Neutrophils # 0.0 K/mm3 03/26/19 Unknown Lymphocytes # (Manual) 0.6 K/mm3 (1.2-5.4) L 03/26/19 Unknown Abs React Lymphs (Man) 0.0 K/mm3 03/26/19 Unknown Monocytes # (Manual) 0.2 K/mm3 (0.0-0.8) 03/26/19 Unknown Eosinophils # (Manual) 0.0 K/mm3 (0.0-0.4) 03/26/19 Unknown Basophils # (Manual) 0.0 K/mm3 (0.0-0.1) 03/26/19 Unknown Metamyelocytes # 0.2 K/mm3 03/26/19 Unknown Myelocytes # 0.0 K/mm3 03/26/19 Unknown Promyelocytes # 0.0 K/mm3 03/26/19 Unknown Blast Cells # 0.0 K/mm3 03/26/19 Unknown WBC Morphology Not Reportable 03/26/19 Unknown Hypersegmented Neuts Not Reportable 03/26/19 Unknown Hyposegmented Neuts Not Reportable 03/26/19 Unknown Hypogranular Neuts Not Reportable 03/26/19 Unknown Smudge Cells Not Reportable 03/26/19 Unknown Toxic Granulation Not Reportable 03/26/19 Unknown Toxic Vacuolation Not Reportable 03/26/19 Unknown Dohle Bodies Not Reportable 03/26/19 Unknown Pelger-Huet Anomaly Not Reportable 03/26/19 Unknown Joyce Rods Not Reportable 03/26/19 Unknown Platelet Estimate Consistent w auto 03/26/19 Unknown Clumped Platelets Not Reportable 03/26/19 Unknown Plt Clumps, EDTA Not Reportable 03/26/19 Unknown Large Platelets Rare 03/26/19 Unknown Giant Platelets Not Reportable 03/26/19 Unknown Platelet Satelliting Not Reportable 03/26/19 Unknown Plt Morphology Comment Not Reportable 03/26/19 Unknown RBC Morphology Not Reportable 03/26/19 Unknown Dimorphic RBCs Not Reportable 03/26/19 Unknown Polychromasia Few 03/26/19 Unknown Hypochromasia Not Reportable 03/26/19 Unknown Poikilocytosis Not Reportable 03/26/19 Unknown Anisocytosis Few 03/26/19 Unknown Microcytosis Not Reportable 03/26/19 Unknown Macrocytosis Few 03/26/19 Unknown Spherocytes Not Reportable 03/26/19 Unknown Pappenheimer Bodies Not Reportable 03/26/19 Unknown Sickle Cells Not Reportable 03/26/19 Unknown Target Cells Not Reportable 03/26/19 Unknown Tear Drop Cells Not Reportable 03/26/19 Unknown Ovalocytes Not Reportable 03/26/19 Unknown Stomatocytes Few 03/26/19 Unknown Helmet Cells Not Reportable 03/26/19 Unknown [place] Bodies Not Reportable 03/26/19 Unknown Atkins Rings Not Reportable 03/26/19 Unknown Samantha Cells Not Reportable 03/26/19 Unknown Bite Cells Not Reportable 03/26/19 Unknown Crenated Cell Not Reportable 03/26/19 Unknown Elliptocytes Not Reportable 03/26/19 Unknown Acanthocytes (Spur) Not Reportable 03/26/19 Unknown Rouleaux Not Reportable 03/26/19 Unknown Hemoglobin C Crystals Not Reportable 03/26/19 Unknown Schistocytes Not Reportable 03/26/19 Unknown Malaria parasites Not Reportable 03/26/19 Unknown Phil Bodies Not Reportable 03/26/19 Unknown Hem Pathologist Commnt No 03/26/19 Unknown PT 15.9 Sec. (12.2-14.9) H 03/16/19 17:05 INR 1.30 (0.87-1.13) H 03/16/19 17:05 APTT 31.7 Sec. (24.2-36.6) 03/16/19 17:05 POC ABG pH 7.391 (7.35-7.45) 03/27/19 04:22 ABG pH 7.326 pH Units (7.350-7.450) L 03/26/19 04:30 POC ABG pCO2 38.0 (35-45) 03/27/19 04:22 ABG pCO2 36.4 mm Hg 03/26/19 04:30 POC ABG pO2 105 (80-105) 03/27/19 04:22 ABG pO2 137.4 mm Hg (80.0-90.0) H 03/26/19 04:30 POC ABG HCO3 23.1 (22-26 mml/L) 03/27/19 04:22 ABG HCO3 18.6 mmol/L (20.0-26.0) L 03/26/19 04:30 POC ABG Total CO2 24 (23-27mmol/L) 03/27/19 04:22 POC ABG O2 Sat 98 03/27/19 04:22 ABG O2 Saturation 98.6 % (95.0-99.0) 03/26/19 04:30 ABG O2 Content 13.7 (0.0-44) 03/26/19 04:30 POC ABG Base Excess -2 ((-2) - (+3)mmol/L) 03/27/19 04:22 ABG Base Excess -6.8 mmol/L (-2.0-3.0) L 03/26/19 04:30 ABG Hemoglobin 9.9 gm/dl (14.0-18.0) L 03/26/19 04:30 ABG Carboxyhemoglobin 1.4 % (0.0-5.0) 03/26/19 04:30 ABG Methemoglobin 0.6 % (0.0-1.5) 03/26/19 04:30 Oxyhemoglobin 96.5 % (95.0-99.0) 03/26/19 04:30 FiO2 35 % 03/27/19 04:22 Sodium 135 mmol/L (137-145) L 03/27/19 04:30 Potassium 4.0 mmol/L (3.6-5.0) D 03/27/19 04:30 Chloride 93.5 mmol/L (98-107) L 03/27/19 04:30 Carbon Dioxide 23 mmol/L (22-30) 03/27/19 04:30 Anion Gap 23 mmol/L 03/27/19 04:30 BUN 84 mg/dL (9-20) H 03/27/19 04:30 Creatinine 7.1 mg/dL (0.8-1.5) H 03/27/19 04:30 Estimated GFR 10 ml/min 03/27/19 04:30 BUN/Creatinine Ratio 12 % 03/27/19 04:30 Glucose 85 mg/dL (75-100) 03/27/19 04:30 POC Glucose 86 (70-105) 03/27/19 05:12 Lactic Acid 1.90 mmol/L (0.7-2.0) 03/21/19 21:31 Calcium 5.0 mg/dL (8.4-10.2) L* 03/27/19 04:30 Phosphorus 7.30 mg/dL (2.5-4.5) H 03/17/19 03:45 Magnesium 2.40 mg/dL (1.7-2.3) H 03/18/19 08:40 Total Bilirubin 0.80 mg/dL (0.1-1.2) 03/27/19 04:30 Direct Bilirubin 5.9 mg/dL (0-0.2) H 03/16/19 17:05 Indirect Bilirubin 0.3 mg/dL 03/16/19 17:05 AST 78 units/L (5-40) H 03/27/19 04:30 ALT 43 units/L (7-56) 03/27/19 04:30 Alkaline Phosphatase 135 units/L (35-129) H 03/27/19 04:30 Total Creatine Kinase 4677 units/L (55-170) H 03/27/19 04:30 CK-MB (CK-2) 54.3 ng/mL (0.0-4.0) H 03/17/19 07:16 CK-MB (CK-2) Rel Index 0.0 (0-4) 03/17/19 07:16 Troponin T 0.058 ng/mL (0.00-0.029) H 03/17/19 07:16 C-Reactive Protein 13.30 mg/dL (0.00-1.30) H 03/20/19 14:45 Total Protein 4.8 g/dL (6.3-8.2) L 03/27/19 04:30 Albumin 2.3 g/dL (3.9-5) L 03/27/19 04:30 Albumin/Globulin Ratio 0.9 % 03/27/19 04:30 Triglycerides 409 mg/dL (2-149) H 03/27/19 04:30 Cholesterol 88 mg/dL (50-199) 03/16/19 22:32 LDL Cholesterol Direct 10 mg/dL (50-130) L 03/16/19 22:32 HDL Cholesterol 7 mg/dL (40-59) L 03/16/19 22:32 Cholesterol/HDL Ratio 12.57 % 03/16/19 22:32 TSH 2.200 mlU/mL (0.270-4.200) 03/16/19 17:05 Free T4 0.72 ng/dL (0.76-1.46) L 03/16/19 17:05 PTH Intact 329.9 pg/mL (15-65) H 03/25/19 05:00 Urine Color Kathy (Yellow) 03/17/19 16:05 Urine Turbidity Cloudy (Clear) 03/17/19 16:05 Urine pH 5.0 (5.0-7.0) 03/17/19 16:05 Ur Specific [place] 1.014 (1.003-1.030) 03/17/19 16:05 Urine Protein >500 mg/dL (Negative) 03/17/19 16:05 Urine Glucose (UA) 50 mg/dL (Negative) 03/17/19 16:05 Urine Ketones Tr mg/dL (Negative) 03/17/19 16:05 Urine Blood Lg (Negative) 03/17/19 16:05 Urine Nitrite Neg (Negative) 03/17/19 16:05 Urine Bilirubin Neg (Negative) 03/17/19 16:05 Urine Urobilinogen < 2.0 mg/dL (<2.0) 03/17/19 16:05 Ur Leukocyte Esterase Mod (Negative) 03/17/19 16:05 Urine WBC (Auto) 30.0 /HPF (0.0-6.0) H 03/17/19 16:05 Urine RBC (Auto) 11.0 /HPF (0.0-6.0) 03/17/19 16:05 U Epithel Cells (Auto) < 1.0 /HPF (0-13.0) 03/17/19 16:05 Urine Mucus Few /HPF 03/17/19 16:05 Urine Sperm 2+ /HPF (RV REPAIR TECHNICIAN) 03/17/19 16:05 Urine Eosinophils None seen (None Seen) 03/17/19 16:05 Urine Creatinine 106.6 mg/dL (0.1-20.0) H 03/17/19 16:05 Urine Sodium 95 mmol/L 03/17/19 16:05 Vancomycin Trough 11.5 ug/mL (5.0-20.0) 03/18/19 13:19 Random Vancomycin 8.2 ug/mL (0-40.0) 03/27/19 04:30 Salicylates < 0.3 mg/dL (2.8-20.0) L 03/16/19 17:05 Urine Opiates Screen Presumptive negative 03/17/19 16:05 Urine Methadone Screen Presumptive negative 03/17/19 16:05 Acetaminophen < 5.0 ug/mL (10.0-30.0) L 03/16/19 17:05 Ur Barbiturates Screen Presumptive negative 03/17/19 16:05 Ur Phencyclidine Scrn Presumptive negative 03/17/19 16:05 Ur Amphetamines Screen Presumptive negative 03/17/19 16:05 U Benzodiazepines Scrn Presumptive positive 03/17/19 16:05 Urine Cocaine Screen Presumptive negative 03/17/19 16:05 U Marijuana (THC) Screen Presumptive negative 03/17/19 16:05 Drugs of Abuse Note Disclamer 03/17/19 16:05 Plasma/Serum Alcohol < 0.01 % (0-0.07) 03/16/19 17:05 Hepatitis A IgM Ab Non-reactive (NonReactive) 03/18/19 13:18 Hep Bs Antigen Non-reactive (Negative) 03/18/19 13:18 Hep B Core IgM Ab Non-reactive (NonReactive) 03/18/19 13:18 Hepatitis C Antibody Non-reactive (NonReactive) 03/18/19 13:18 HIV 1&2 Antibody Rapid Non react (Non React) 03/17/19 11:52 HIV P24 Antigen Non react (Non React) 03/17/19 11:52 Influenza A (Rapid) Negative (Negative) 03/17/19 17:00 Influenza B (Rapid) Negative (Negative) 03/17/19 17:00 Group A Strep Rapid Negative (Negative) 03/17/19 17:00 Active Medications - Current Medications Current Medications: Generic Name Dose Route Start Last Admin Trade Name Freq PRN Reason Stop Dose Admin Acetaminophen 650 mg 03/26/19 22:15 03/27/19 08:42 Tylenol PO 650 mg Q4H PRN Administration Pain, Mild (1-3), [id number]> Albuterol/Ipratropium 1 ampul 03/19/19 20:00 03/27/19 11:04 Duoneb *Not For Prn Use* IH 1 ampul Q4HRT PAOLO Administration Amiodarone HCl 200 mg 03/27/19 11:00 03/27/19 11:25 Cordarone PO 200 mg BID PAOLO Administration Lipase/Protease/Amylase 1 each 03/17/19 14:45 Pancreaze 10,500 Unit FEEDTUBE PRN PRN For Clogged Feeding Tube Calcitriol 0.5 mcg 03/26/19 11:00 03/27/19 09:56 Rocaltrol PO 0.5 mcg QDAY PAOLO Administration Dextrose 50 gm 03/19/19 18:39 03/26/19 23:26 D50w (25gm) Vial IV 50 gm PRN PRN Administration Hypoglycemia Famotidine 20 mg 03/20/19 10:00 03/27/19 09:58 Pepcid IV 20 mg DAILY PAOLO Administration Fentanyl 50 mcg 03/16/19 16:06 03/24/19 20:08 Sublimaze IV 50 mcg Q10MIN PRN Administration ANALGESIA Fentanyl 50 mcg 03/26/19 12:00 03/27/19 08:43 Sublimaze IV 50 mcg Q1H PRN Administration Pain, Moderate (4-6) Hydrophilic Ointment 1 applic 03/16/19 15:50 Vaseline Lip Therapy TP Q2HR PRN Dry Lips Phenylephrine HCl 100 mg/ 100 mls @ 3 mls/hr 03/17/19 02:30 03/19/19 18:48 Sodium Chloride IV Infused TITR PAOLO Titration Protocol 50 MCG/MIN Ceftriaxone Sodium 2 gm in 100 mls @ 200 mls/hr 03/17/19 12:00 03/27/19 09:59 Rocephin/Ns 2 Gm/100 Ml IV 200 mls/hr Q12HR PAOLO Administration Protocol Doxycycline Hyclate 100 mg/ 250 mls @ 250 mls/hr 03/17/19 12:00 03/27/19 09:59 Sodium Chloride IV 250 mls/hr Q12HR PAOLO Administration Protocol Sodium Chloride 100 mls @ 999 mls/hr 03/26/19 10:38 Nacl 0.9% IV NEYMAR PRN Hypotension Fentanyl Citrate 2,000 mcg in 100 mls @ 7.85 mls/hr 03/26/19 12:00 Fentanyl Drip Premix IV TITR PAOLO Protocol 1 MCG/KG/HR Vancomycin HCl 2,000 mg/ 540 mls @ 250 mls/hr 03/27/19 10:00 03/27/19 09:58 Sodium Chloride IV 03/27/19 12:09 250 mls/hr ONCE ONE Administration Dexmedetomidine HCl 400 mcg/ 104 mls @ 8.164 mls/hr 03/27/19 10:00 03/27/19 11:25 Sodium Chloride IV 0.3 mcg/kg/hr TITRATE PAOLO 12.246 mls/hr Titration Protocol 0.2 MCG/KG/HR Calcium Gluconate 2,000 mg/ 120 mls @ 660 mls/hr 03/27/19 12:00 Sodium Chloride IV 03/27/19 14:11 Q8HR PAOLO Lorazepam 2 mg 03/26/19 11:54 03/27/19 02:44 Ativan IV 2 mg Q1H PRN Administration Agitation Metoprolol Tartrate 25 mg 03/26/19 17:00 03/27/19 07:36 Lopressor PO 25 mg TID PAOLO Administration Midodrine 10 mg 03/18/19 20:00 03/27/19 04:00 Proamatine PO 10 mg Q8H PAOLO Administration Multi-Ingred Cream/Lotion/Oil/Oint 1 applic 03/16/19 15:50 03/19/19 20:10 Artificial Tears Ophth Oint OU 1 applic Q4HR PRN Administration Dry Eye(s) Ondansetron HCl 4 mg 03/16/19 22:21 Zofran IV Q8H PRN Nausea And Vomiting Quetiapine Fumarate 50 mg 03/27/19 10:00 03/27/19 09:57 Seroquel PO 50 mg BID PAOLO Administration Simple Syrup 15 ml 03/17/19 14:45 03/26/19 23:19 Simple Syrup FEEDTUBE 15 ml PRN PRN Administration Hypoglycemia Simple Syrup 30 ml 03/17/19 14:45 Simple Syrup FEEDTUBE PRN PRN Hypoglycemia Sodium Bicarbonate 325 mg 03/17/19 14:45 Sodium Bicarbonate FEEDTUBE PRN PRN For Clogged Feeding Tube Nutrition/Malnutrition Assess - Dietary Evaluation Nutrition/Malnutrition Findings: Nutrition Notes Start: 03/17/19 14:22 Freq: Status: Active Protocol: Document 03/27/19 10:01 AIYANA (Rec: 03/27/19 10:34 AIYANA [email or web address]) Co-Sign 03/27/19 10:01 LM Nutrition Notes Initial or Follow up Reassessment Current Diagnosis Acute Kidney Injury Other Pertinent Diagnosis on HD, Septic shock,Multiple organ failure, encephalopathy, rhabdomyolysis Current Diet Nepro with Carbsteady at 55ml/ hr Labs/Tests Na 135 Cl 93.5 BUN 84 Cr 7.1 Pertinent Medications Solu-corterf Height 6 ft Weight 157 kg [place] Body Weight (kg) 80.90 BMI 46.9 Subjective/Other Information Pt is tolerating TF per MD. TF is at 40ml/hr Percent of energy/protein needs met: 79%/38% Burn Absent Trauma Absent Minimum of two criteria No #1 Nutrition Diagnosis Inadequate oral intake Diagnosis Progress(for reassessment Continues documentation) Is patient on ventilator? Yes Is Patient Ambulatory and/or Out of Bed No REE-([place]-confined to bed) 2994.036 Kcal/Kg value to use for calculation 14 Approximate Energy Requirements Using 2198 kcal/Kg Calculation Used for Recommendations Kcal/kg Additional Notes Protein Needs: 202g (2.5g/kg IBW 80.9) Fluid Needs: 1 ml/kcal or per MD Nutrition Intervention Change Diet Order: Continue current Nutrition Support: Nepro 1.8 at 55 ml/hr Flush 100 ml q4hr for hyponatremia Kcal 2,376 Protein (gm) 107 Fluid (mL) 960 Goal #1 TF tolerance Goal #2 Meet at least 75% of energy and protein needs Anticipated Discharge Needs: Unable to determine at this time Follow-Up By: 03/29/19 Additional Comments F/U for TF tolerance and goal rate
--- NOTE | 2019-03-27 12:02 | Progress Note ---
Assessment and Plan Cultures: 03/16/2019 sputum: salivary contamination 03/16/2019 Blood culture: no growth 03/17/2019 Urine culture no growth 03/17/2019 throat culture: no growth 03/26/2019 Blood culture: no growth so far Assessment: 43y/o male with possible psych history admitted on 03/16/2019 with: 1) Septic shock: off pressors for 72h, Noted fever 102 overnight, still leukocytosis at 19. Fever likely due to DVT/ ?sinusitis, ? fem TLC infection ?drug fever. Repeat blood culture no growth so far. Brain MRI shows no acute intracranial abnormality, mild nonspecific chronic white matter changes, fluid throughout the sinuses and mastoid air cells. Venous US + right IJ DVT. Initial septic shock - Possible Infectious etiology v/s possibility of Neuroleptic Malignant Syndrome given psych history, high fever of 105F and extremely elevated CPK of >100K. Unclear if he was on any psych med. From ID standpoint, we will continue broad coverage for acute bacterial meningitis, tick borne illness, aspiration pneumonia. Blood culture negative UA with mild pyuria. HIV rapid negative. Strep A rapid ag negative. No obvious infectious source identified yet. 2) Probable aspiration pneumonia: Already completed adequate abx. 3) Acute respiratory failure: on the vent. Improving. 4) ?Right axillary edema: no abscess, US no collection seen 5) Acute encephalopathy: improving. CT head showed diffuse cerebral edema ?artifact. But too unstable for LP at this time. Low suspicion for HSV meningoencephalitis given the degree of his initial shock and clinical status. Given nationwide acyclovir shortage and low suspicion, would not recommend IV Ganciclovir at this time. 6) Acute renal failure: renally dosing all abx, now on HD 7) Elevated LFTs/shock liver: also likely elevated from Rhabdomyolysis. Viral hepatitis panel negative. LFTs continue to improve. 8) Thrombocytopenia: multifactorial - some better 9) Rhabdomyolysis: CK continues to improve 10) ?Enteritis: per CT ? no collection no perforation no obvious ischemic bowel. Gen. Surg following Recommendations: F/u Blood culture x 2 sets today Remove femoral central line alexandra - higher fever Right IJ DVT treatment per primary team LP awaited due to low platelets stop IV Ceftriaxone 2 gm IV q12 h D11 stop IV doxycycline D11 stop vancomycin IV D11 start cefepime renally adjusted for now tickborne serologies pending Discussed with nursing staff Will follow. Risa Bryant MD Infectious Diseases [facility], [place], Operated [facility] ([facility]) M [phone] O [phone] Subjective Date of service: 03/27/19 Principal diagnosis: Septic Shock; Ac. hypoxemic resp failure; Dannie. PNA; Rhabdom yolysis; RUBEN Interval history: Remains intubated on sedation, now more alert, opening eyes, off pressors for 72hours, noted fever 102.4 Objective - Exam Narrative Exam: General appearance: sedated intubated opening eyes Eyes: pupils dannie contracted poorly reactive, no jaundice HENT: Atraumatic; oropharynx with ETT/OGT Neck: no JVD Lungs:distant BS CV: RRR Abdomen: Soft, non-tender; no masses or hepatosplenomegaly Extremities: dannie leg edema/arm edema, +right axillar soft tissue mass non tender Skin:no rash, +scrotal edema Psych: sedated. Neuro: sedated Right femoral TLC - Constitutional Vitals: Vital Signs Temp Pulse Resp BP Pulse Ox 102.4 F H 91 H 36 H 150/75 97 03/27/19 08:00 03/27/19 11:30 03/27/19 11:30 03/27/19 11:30 03/27/19 11:30 Temperature -Last 24 Hours Temperature 102.4 F Temperature 102.1 F Temperature 100.6 F Temperature 99.2 F Temperature 99.7 F Temperature 98.8 F Temperature 98.8 F Temperature 99.9 F - Labs CBC & Chem 7: 03/27/19 09:00 03/27/19 04:30 Labs: Abnormal lab results 03/26/19 03/27/19 03/27/19 Range/Units 23:22 04:30 04:30 WBC (4.5-11.0) K/mm3 RBC (3.65-5.03) M/mm3 Hgb (11.8-15.2) gm/dl Hct (35.5-45.6) % Plt Count (140-440) K/mm3 Sodium 135 L (137-145) mmol/L Chloride 93.5 L (98-107) mmol/L BUN 84 H (9-20) mg/dL Creatinine 7.1 H (0.8-1.5) mg/dL POC Glucose 69 L (70-105) Calcium 5.0 L* (8.4-10.2) mg/dL AST 78 H (5-40) units/L Alkaline Phosphatase 135 H (35-129) units/L Total Creatine Kinase 4677 H (55-170) units/L Total Protein 4.8 L (6.3-8.2) g/dL Albumin 2.3 L (3.9-5) g/dL Triglycerides 409 H (2-149) mg/dL 03/27/19 Range/Units 09:00 WBC 19.2 H (4.5-11.0) K/mm3 RBC 3.42 L (3.65-5.03) M/mm3 Hgb 9.9 L (11.8-15.2) gm/dl Hct 30.0 L (35.5-45.6) % Plt Count 84 L (140-440) K/mm3 Sodium (137-145) mmol/L Chloride (98-107) mmol/L BUN (9-20) mg/dL Creatinine (0.8-1.5) mg/dL POC Glucose (70-105) Calcium (8.4-10.2) mg/dL AST (5-40) units/L Alkaline Phosphatase (35-129) units/L Total Creatine Kinase (55-170) units/L Total Protein (6.3-8.2) g/dL Albumin (3.9-5) g/dL Triglycerides (2-149) mg/dL
[2019-03-27] MEDS: CALCIUM GLUCONATE 2,000 MG in SODIUM CHLORIDE 0.9% 100 ML IV SCH ×2 (12:12→14:36)
[2019-03-27] MEDS ORDERED: HEPARIN/ 0.45% NACL DRIP 25,000 UNIT/500 ML BAG IV SCH (13:00)
[2019-03-27] MEDS ORDERED: LANSOPRAZOLE 30 MG SOLUTAB FEEDTUBE SCH (13:00)
--- NOTE | 2019-03-27 14:00 | Post Operative Note ---
Date of procedure: 03/27/19 Pre-op diagnosis: HD access Post-op diagnosis: same Procedure: 12 Fr dual lumen hemodialysis catheter exchanged for a 13 Fr triple lumen hemodialysis catheter Anesthesia: local Surgeon: HUBER LINARES Estimated blood loss: minimal Condition: stable Disposition: no change
--- NOTE | 2019-03-27 14:01 | Consultation ---
History of Present Illness - Reason for Consult Consult date: 03/27/19 Acute R IJ DVT - History of Present Illness 43 y/o male unknown medical history admitted on 03/16/2019 due to be found unresponsive by his friend. Patient is currently intubated unable to provide a history. I attempted to call his friend but got an answering machine. 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 His friend last saw him on 03/13/2019 and he was doing fine. Friend came back to the hotel on 03/16/2019 and found him in respiratory distress, diaphoretic, unable to walk and confused and incoherent. There was a report of bilateral eye discharge and right axilla mass. Patient has had a long hospitalization with septic shock, aspiration pneumonia, acute respiratory failure on vent, encephalitis, acute renal failure requiring HD, and shock liver and rhabdomyolysis. Vascular consulted for right IJ thrombus with indwelling vascath just transitioned to trialysis. Past History Past Medical History: other (Unable to obtain ) Past Surgical History: Other (Unable to obtain ) Social history: other (Reside with a friend) Family history: other (unknown) Medications and Allergies Allergies Allergy/AdvReac Type Severity Reaction Status Date / Time No Known Allergies Allergy Unverified 03/16/19 17:17 Home Medications Medication Instructions Recorded Confirmed Last Taken Type Unobtainable 03/18/19 03/18/19 Unknown History Active Meds: Active Medications Acetaminophen (Tylenol) 650 mg PO Q4H PRN PRN Reason: Pain, Mild (1-3), [id number]> Last Admin: 03/27/19 08:42 Dose: 650 mg Documented by: Albuterol/Ipratropium (Duoneb *Not For Prn Use*) 1 ampul IH Q4HRT [facility] Last Admin: 03/27/19 11:04 Dose: 1 ampul Documented by: Lipase/Protease/Amylase (Sanjay Purcell 10,500 Unit) 1 each FEEDTUBE PRN PRN PRN Reason: For Clogged Feeding Tube Calcitriol (Rocaltrol) 0.5 mcg PO QDAY [facility] Last Admin: 03/27/19 09:56 Dose: 0.5 mcg Documented by: Dextrose (D50w (25gm) Vial) 50 gm IV PRN PRN PRN Reason: Hypoglycemia Last Admin: 03/26/19 23:26 Dose: 50 gm Documented by: Famotidine (Pepcid) 20 mg IV DAILY [facility] Last Admin: 03/27/19 09:58 Dose: 20 mg Documented by: Fentanyl (Sublimaze) 50 mcg IV Q10MIN PRN PRN Reason: ANALGESIA Last Admin: 03/24/19 20:08 Dose: 50 mcg Documented by: Fentanyl (Sublimaze) 50 mcg IV Q1H PRN PRN Reason: Pain, Moderate (4-6) Last Admin: 03/27/19 13:47 Dose: 50 mcg Documented by: Hydrophilic Ointment (Vaseline Lip Therapy) 1 applic TP Q2HR PRN PRN Reason: Dry Lips Phenylephrine HCl 100 mg/ (Sodium Chloride) 100 mls @ 3 mls/hr IV TITR [facility]; Protocol Last Titration: 03/19/19 18:48 Dose: Infused Documented by: Sodium Chloride (Nacl 0.9%) 100 mls @ 999 mls/hr IV NEYMAR PRN PRN Reason: Hypotension Fentanyl Citrate (Fentanyl Drip Premix) 2,000 mcg in 100 mls @ 7.85 mls/hr IV TITR [facility]; Protocol Dexmedetomidine HCl 400 mcg/ (Sodium Chloride) 104 mls @ 8.164 mls/hr IV TITRATE [facility]; Protocol Last Titration: 03/27/19 13:34 Dose: 0.5 mcg/kg/hr, 20.41 mls/hr Documented by: Calcium Gluconate 2,000 mg/ (Sodium Chloride) 120 mls @ 660 mls/hr IV Q8HR [facility] Stop: 03/27/19 14:11 Last Admin: 03/27/19 12:12 Dose: 660 mls/hr Documented by: Cefepime HCl (Maxipime/Ns 2 Gm/100 Ml) 2 gm in 100 mls @ 200 mls/hr IV Q24H [facility]; Protocol Heparin Sodium/Sodium Chloride (Heparin/ 0.45% Nacl-25,000 Unit/500 Ml) 25,000 unit in 500 mls @ 30 mls/hr IV TITR [facility]; Protocol Lansoprazole (Prevacid Solutab) 30 mg FEEDTUBE QDAY [facility] Lorazepam (Ativan) 2 mg IV Q1H PRN PRN Reason: Agitation Last Admin: 03/27/19 02:44 Dose: 2 mg Documented by: Metoprolol Tartrate (Lopressor) 50 mg PO TID [facility] Midodrine (Proamatine) 10 mg PO Q8H [facility] Last Admin: 03/27/19 12:11 Dose: 10 mg Documented by: Multi-Ingred Cream/Lotion/Oil/Oint (Artificial Tears Ophth Oint) 1 applic OU Q4HR PRN PRN Reason: Dry Eye(s) Last Admin: 03/19/19 20:10 Dose: 1 applic Documented by: Ondansetron HCl (Zofran) 4 mg IV Q8H PRN PRN Reason: Nausea And Vomiting Quetiapine Fumarate (Seroquel) 50 mg PO BID [facility] Last Admin: 03/27/19 09:57 Dose: 50 mg Documented by: Simple Syrup (Simple Syrup) 15 ml FEEDTUBE PRN PRN PRN Reason: Hypoglycemia Last Admin: 03/26/19 23:19 Dose: 15 ml Documented by: Simple Syrup (Simple Syrup) 30 ml FEEDTUBE PRN PRN PRN Reason: Hypoglycemia Sodium Bicarbonate (Sodium Bicarbonate) 325 mg FEEDTUBE PRN PRN PRN Reason: For Clogged Feeding Tube Review of Systems ROS unobtainable: due to mental status Exam - Constitutional Vitals: Temp Pulse Resp BP Pulse Ox 102.9 F H 91 H 36 H 150/75 97 03/27/19 12:00 03/27/19 11:30 03/27/19 11:30 03/27/19 11:30 03/27/19 11:30 General appearance: Present: other (intubated) - EENT ENT: other (intubated; R IJ HD catheter intact) - Neck Neck: Present: other (R IJ vascath intact) - Respiratory Respiratory effort: other (intubated) - Abdominal General gastrointestinal: Present: other (obese) - Psychiatric Psychiatric: other (intubated) Results - Labs CBC & Chem 7: 03/27/19 09:00 03/27/19 04:30 Labs: Abnormal lab results 03/26/19 03/27/19 03/27/19 Range/Units 23:22 04:30 04:30 WBC (4.5-11.0) K/mm3 RBC (3.65-5.03) M/mm3 Hgb (11.8-15.2) gm/dl Hct (35.5-45.6) % Plt Count (140-440) K/mm3 Sodium 135 L (137-145) mmol/L Chloride 93.5 L (98-107) mmol/L BUN 84 H (9-20) mg/dL Creatinine 7.1 H (0.8-1.5) mg/dL POC Glucose 69 L (70-105) Calcium 5.0 L* (8.4-10.2) mg/dL AST 78 H (5-40) units/L Alkaline Phosphatase 135 H (35-129) units/L Total Creatine Kinase 4677 H (55-170) units/L Total Protein 4.8 L (6.3-8.2) g/dL Albumin 2.3 L (3.9-5) g/dL Triglycerides 409 H (2-149) mg/dL 03/27/19 03/27/19 Range/Units 09:00 12:37 WBC 19.2 H (4.5-11.0) K/mm3 RBC 3.42 L (3.65-5.03) M/mm3 Hgb 9.9 L (11.8-15.2) gm/dl Hct 30.0 L (35.5-45.6) % Plt Count 84 L (140-440) K/mm3 Sodium (137-145) mmol/L Chloride (98-107) mmol/L BUN (9-20) mg/dL Creatinine (0.8-1.5) mg/dL POC Glucose 129 H (70-105) Calcium (8.4-10.2) mg/dL AST (5-40) units/L Alkaline Phosphatase (35-129) units/L Total Creatine Kinase (55-170) units/L Total Protein (6.3-8.2) g/dL Albumin (3.9-5) g/dL Triglycerides (2-149) mg/dL - Imaging and Cardiology Venous US: report reviewed, image reviewed Assessment and Plan 43 year old male with multiple medical issues with acute renal failure and v ascath placement. Recently underwent dual lumen vascath exchange for triple lumen vascath (trialysis) without issue. Regarding right internal jugular deep venous thrombus, it is a risk, benefit analysis. Optimally, this would be anticoagulated for 3 months. Recommend typical ICU GI prophylaxis (PPI), but if patient is at high risk for bleeding, then recommend serial monitoring with ultrasound every 7 days and no anticoagulation. If intermediate or low risk, then recommend anticoagulation with heparin and if no issues, then conversion to DOAC or coumadin. Patient will ultimately require permcath placement once febrile issues resolve, and therefore heparin drip may be of more benefit in the short term.
[2019-03-27 14:25] LABS: Hematocrit 29.5 % (35.5-45.6); Hemoglobin 9.7 gm/dl (11.8-15.2)
[2019-03-27] MEDS: fentaNYL DRIP Premix 2,000 MCG/100 ML BAG IV SCH ×2 (14:25→19:10)
--- NOTE | 2019-03-27 14:29 | XRay Report ---
CHEST 1 VIEW INDICATION: for trialysis placement. COMPARISON: 03/25/2019 FINDINGS: Support devices: The endotracheal tube and nasogastric tube remain in adequate position. A single-lum en right IJ venous catheter has been replaced with a dual lumen catheter which terminates in the lowe r SVC. Heart: Within normal limits. Lungs/Pleura: No acute air space or interstitial disease. There is minor discoid atelectasis adjacent to the right hilum. Otherwise the lungs are clear. No pleural effusion or pneumothorax. Additional findings: None. IMPRESSION: No acute findings. Signer Name: Linus Cantu Jr, MD Signed: 03/27/2019 2:25 PM Workstation Name: [id number]
[2019-03-27] MEDS: CEFEPIME/NS 2 GM/100 ML 2 GM/100 ML BAG IV SCH (14:36)
[2019-03-27 14:46] LABS: INR 1.3 (0.87-1.13); Partial Thromboplastin Time 27.6 Sec. (24.2-36.6)
--- NOTE | 2019-03-27 15:14 | Operative Report ---
Operative Report Operative Report: EXAM: Successful exchange of a 15 cm 12 Gren[place] dual lumen hemodialysis catheter for a 15 cm 13 Gren[place] triple lumen hemodialysis catheter DATE: 03/27/19 EAR MACHINE OPERATOR: HUBER LINARES MD INDICATION: 43-year-old male with acute renal failure on hemodialysis with request for hemodialysis catheter exchange. MEDICATIONS: Please see nursing report for full details. DEVICES: 15 cm 13 Gren[place] triple-lumen hemodialysis catheter CONTRAST: None PROCEDURE: The risks, benefits, and alternatives were discussed with the patient's brother; written informed consent was obtained. The patient's right neck was prepped and draped in a sterile fashion. Catheter area was infiltrated with lidocaine. 0.035 inch wire was passed into the existing hemodialysis catheter. Sutures retaining the catheter were cut. Hemodialysis catheter was removed over the wire and the wire was cleaned with ChloraPrep. A new 15 cm 13 Gren[place] triple lumen hemodialysis catheter was advanced over the wire. Wire was removed and the dialysis ports were blocked with 1000 units per heparin in the space. The central area was flushed with normal saline. Sterile dressing and Biopatch applied. Patient tolerated the procedure well. No immediate postprocedural complication. FINDINGS: Chest x-ray shows no pneumothorax. Line is in appropriate position. IMPRESSION: Successful dialysis catheter exchange.
--- NOTE | 2019-03-27 17:40 | Event Note ---
Date: 03/27/19 Called by nursing staff with fever 105 after he came from IJ cath exchanged, he got an extra dose of fentanyl for procedure, unclear etiology of high fever ? neuroleptic malignant syndrome ? septic thrombophlebitis. Will order stat blood cultures, procalcitonin, CK. Discussed with Dr Terrazas and Dr Main.
[2019-03-27] MEDS ORDERED: SODIUM CHLORIDE 0.9% P/F 10 ML VIAL ONE (18:23)
[2019-03-27] MEDS ORDERED: VANCOMYCIN/NS 1 GM/250 ML 1 GM/250 ML BAG IV ONE (20:00)
[2019-03-27] MEDS: NORepinephrine/NS 4 MG-250 ML 4 MG/250 ML BAG IV SCH (22:28)
--- NOTE | 2019-03-28 00:35 | Event Note ---
Date: 03/27/19 R IJ non occlusive thrombus Fernie Main, started on heparin drip, hematology consult -Fever, fernie Meraz, abx being changed, thrombus being rx
[2019-03-28] MEDS: IPRATROPIUM/ALBUTEROL SULFATE 3 ML AMPUL.NEB IH SCH ×5 (03:30→21:09)
[2019-03-28] MEDS: MIDODRINE 5 MG TAB PO SCH (04:15)
--- NOTE | 2019-03-28 05:27 | Event Note ---
patient on heparin drip Nurse reported bloody dtool, bloody sputum D/c heparin drip, check serial hemoglobin, consult GI
[2019-03-28] MEDS: NORepinephrine/NS 4 MG-250 ML 4 MG/250 ML BAG IV SCH ×3 (05:49→21:22)
[2019-03-28] MEDS: fentaNYL DRIP Premix 2,000 MCG/100 ML BAG IV SCH (06:14)
--- NOTE | 2019-03-28 07:45 | Event Note ---
Date: 03/28/19 [id number]
[2019-03-28] MEDS ORDERED: SODIUM CHLORIDE 0.9% 250ML 250 ML IV SCH (08:30)
[2019-03-28] MEDS: METOPROLOL TARTRATE 25 MG TAB PO SCH ×3 (08:40→20:44)
[2019-03-28] MEDS: VASOPRESSIN 20 UNIT in SODIUM CHLORIDE 0.9% 100 ML IV SCH (09:00)
[2019-03-28] MEDS ORDERED: CALCIUM GLUCONATE 2,000 MG in SODIUM CHLORIDE 0.9% 100 ML IV ONE (09:00)
[2019-03-28] MEDS ORDERED: PANTOPRAZOLE 40 MG INJ IV ONE (09:00)
[2019-03-28 09:14] LABS: Hematocrit 15.4 % (35.5-45.6); Hemoglobin 4.9 gm/dl (11.8-15.2)
[2019-03-28] MEDS: PANTOPRAZOLE 80 MG in SODIUM CHLORIDE 0.9% 100 ML IV SCH (09:30)
--- NOTE | 2019-03-28 09:33 | Progress Note ---
Assessment and Plan S/p cardiopulmonary arrest Upon admission on 03/16/2019, pt initially in SVT 250s and received 50 J synchronized shock, rhythm deteriorated to a polymorphic V. tach and then monomorphic V. tach and then patient was defibrillated at 325 J. Patient rhythm then became sinus. Pt was subsequently intubated in ED. Echo showed EF 40-45%, impaired relaxation. Leroy negative for AMI. ECGs with no acute ischemic changes. Plan for ischemic evaluation if/when medically stabilized. Acute respiratory failure Intubated. Management per pulmonary. Transient SVT Torsades sparkle pointes / Ventricular tachycardia Plan for ischemic evaluation if/when medically stabilized. Paroxysmal atrial fibrillation with RVR Pt hypotensive, suspected new GI bleed, noted to be severely anemic, restarted on vasopressin gtt. Decrease lopressor to 25mg TID and cont as tolerated with hold parameters. No systemic AC at this time regarding AFib in setting of anemia, thrombocytopenia, suspected GI bleed. Cardiomyopathy EF 40-45% Cont lopressor as BPs permit. ACEI/ARB at this time in setting of hypotension and acute renal failure. Plan for ischemic evaluation if/when medically stabilized. AMS Neurology following. Head CT with no definite acute findings. AMS secondary to metabolic encephalopathy per neurology. Septic shock / probable aspiration PNA / ? meningitis / right axillary cellulitis Temp of 105 noted overnight. Pt initiated on cooling blankets. ID following. Per ID, ?Infectious etiology v/s possibility of Neuroleptic Malignant Syndrome given psych history, high fever of 105F and extremely elevated CPK of >100K. Pt remains febrile. Blood cultures negative to date. Abx per ID team. Unable to perform lumbar puncture at this time in setting of th rombocytopenia. Acute renal failure / Rhabdomyolysis Initiated on HD. Nephrology following. Hyperkalemia / Hyponatremia / Hypocalcemia Electrolyte management per nephrology. Enteritis Abdomen CT showed moderately dilated small bowel bowel loops in the mid to upper abdomen anteriorly with mild associated bowel wall thickening. Localized enteritis and small bowel ischemia should be considered. General surgery following. Per general surgery, noevidence of peritonitis and no definitive indication for surgical intervention. Pt currently tolerating low volume TF infusion. Elevated LFTs ? shock liver. LFTs improving. Nonocclusive thrombus in right internal jugular vein Pt was initiated on heparin gtt yesterday per primary team. Pt was noted to have blood in vomit and blood in stool overnight. H/H severely decreased this AM. Heparin gtt held. For PRBC tx today per primary/critical care team. ? GI bleed GI consultation pending. Heparin gtt held. For PRBC tx today per primary/critical care team. Severe anemia / Thrombocytopenia S/p heparin gtt for nonocclusive thrombus in right IJ. For PRBC tx today per primary/critical care team. H/o psych disorder Obesity The patient has been seen in conjunction with Dr. Rubalcava who agrees with the assessment and plan of care. Subjective Date of service: 03/28/19 Principal diagnosis: Septic Shock; Ac. hypoxemic resp failure; Renzo. PNA; Rhabdomyolysis; RUBEN Interval history: pt remains intubated, moving arms and legs, no purposeful response noted, sedated, restarted on vasopressin. in SR on telemetry. Pt was initiated on heparin gtt yesterday per primary team for nonocclusive thrombus in right internal jugular vein. Pt was noted to have blood in vomit and blood in stool overnight. H/H severely decreased this AM. Heparin gtt held. Objective Last Vital Signs Temp 97.7 F 03/28/19 08:00 Pulse 74 03/28/19 08:40 Resp 25 H 03/28/19 07:39 BP 96/46 03/28/19 08:40 Pulse Ox 100 03/28/19 08:11 - Physical Examination General: Other (intubated, sedated) HEENT: Positive: PERRL Neck: Positive: neck supple Cardiac: Positive: Reg Rate and Rhythm, S1/S2 Lungs: Positive: Decreased Breath Sounds Neuro: Positive: Other (intubated) Abdomen: Positive: Unremarkable /Rectal: Other (deferred) Skin: Positive: Clear Musculoskeletal: Decreased Range of Motion Extremities: Present: lower extr. pulses (weak, thready ) - Labs and Meds Coagulation 03/27/19 Range/Units 14:15 PT 15.9 H (12.2-14.9) Sec. INR 1.30 H (0.87-1.13) APTT 27.6 (24.2-36.6) Sec. CBC 03/27/19 03/27/19 03/28/19 Range/Units 09:00 14:15 08:25 WBC 19.2 H (4.5-11.0) K/mm3 RBC 3.42 L (3.65-5.03) M/mm3 Hgb 9.9 L 9.7 L 4.9 L* D (11.8-15.2) gm/dl Hct 30.0 L 29.5 L 15.4 L* D (35.5-45.6) % Plt Count 84 L 87 L (140-440) K/mm3 Comprehensive Metabolic Panel 03/28/19 Range/Units 05:13 Sodium 135 L (137-145) mmol/L Potassium 5.5 H D (3.6-5.0) mmol/L Chloride 95.1 L (98-107) mmol/L Carbon Dioxide 16 L D (22-30) mmol/L BUN 129 H (9-20) mg/dL Creatinine 9.3 H (0.8-1.5) mg/dL Glucose 158 H (75-100) mg/dL Calcium 4.0 L* D (8.4-10.2) mg/dL - Imaging and Cardiology Echo: report reviewed ( EF 40-45%, impaired relaxation. ) - Allied health notes Allied health notes reviewed: RT
[2019-03-28] MEDS ORDERED: SODIUM CHLORIDE 0.9% 500 ML 500 ML IV ONE ×3 (09:36→18:00)
[2019-03-28] MEDS ORDERED: DESMOPRESSIN ACETATE IV STA (09:48)
[2019-03-28] MEDS ORDERED: SODIUM CHLORIDE 0.9% IV STA (09:48)
[2019-03-28] MEDS ORDERED: CALCIUM CHLORIDE 1,000 MG/10 ML SYRINGE IV ONE ×2 (10:00)
[2019-03-28] MEDS ORDERED: VANCOMYCIN PHARMACY TO DOSE IV SCH (10:00)
[2019-03-28] MEDS: CALCITRIOL 0.5 MCG CAP PO SCH (10:00)
[2019-03-28] MEDS: FLUCONAZOLE 200 MG 200 MG/100 ML BAG IV SCH (10:30)
[2019-03-28] MEDS ORDERED: SODIUM CHLORIDE 0.9% 100 ML IV PRN (10:41)
--- NOTE | 2019-03-28 10:42 | Progress Note ---
Assessment and Plan 1. Acute kidney injury: Vasomotor RUBEN in the setting of shock / volume depletion / Rhabdo. Baseline renal function is unknown. Patient remain anuric / oliguric. CT abdomen was negative for obstructive nephropathy. Monitor renal function. Renal prognosis is guarded. Avoid nephrotoxic agents. Meds dosage based on GFR. Patient was started on hemodialysis on 03/18/19 due to worsening metabolic acidosis and hyperkalemia. Hemodialysis: 03/18, 03/19, 03/20, 03/22, 03/23, 03/24, 03/26, 03/28. 2. FEN: Hyperkalemia, low K bath HD today. Hyponatremia, monitor. Metabolic acidosis, monitor. Volume overload, UF with HD as tolerated. Hypocalcemia, likely multifactorial. Replete Calcium. Monitor lytes. 3. Septic shock: On broad spectrum Abx. Followed by ID. Currently on Midodrine, Levophed and Vasopressin. 4. Rhabdomyolysis: Follow CK level. 5. SVT / V.tach: Followed by Cards. 6. Respiratory failure: On vent. 7. Severe anemia: PRBC with HD today. 8. Elevated transaminases. 9. Encephalopathy. Examination: General appearance: well-developed, appears stated age, obese, intubated, on vent HEENT: bleeding from mouth EYES: Pupils reacting to light Neck: supple Respiratory: coarse breath sounds Cardiology: regular, S1S2 heard, no murmurs Gastrointestinal: no tenderness, obese, BS heard, scrotal edema noted, rectal bleeding noted Integumentary: no rash noted Neurologic: opens eyes Ext: trace edema of all 4 extremities Hemodialysis access: R IJ temp catheter Subjective Date of service: 03/28/19 Principal diagnosis: Septic Shock; Ac. hypoxemic resp failure; Renzo. PNA; Rhabdomyolysis; RUBEN Interval history: Patient was seen and examined at the bedside. Remain on the vent. Objective - Vital Signs Vital signs: Vital Signs - 12hr 03/27/19 03/27/19 03/27/19 22:52 23:00 23:25 Temperature Pulse Rate 88 87 Pulse Rate [ 98 H Anterior Bilateral Throughout] Pulse Rate [ From Monitor] Respiratory 17 17 Rate Respiratory 30 H Rate [Anterior Bilateral Throughout] Blood Pressure 82/40 90/41 O2 Sat by Pulse 97 97 Oximetry 03/27/19 03/27/19 03/27/19 23:26 23:30 23:58 Temperature 102.5 F H Pulse Rate 88 87 Pulse Rate [ Anterior Bilateral Throughout] Pulse Rate [ From Monitor] Respiratory 16 Rate Respiratory Rate [Anterior Bilateral Throughout] Blood Pressure 105/56 97/58 O2 Sat by Pulse 98 100 Oximetry 03/28/19 03/28/19 03/28/19 00:00 00:30 01:00 Temperature 102.5 F H Pulse Rate 88 86 84 Pulse Rate [ Anterior Bilateral Throughout] Pulse Rate [ 88 From Monitor] Respiratory 17 14 12 Rate Respiratory Rate [Anterior Bilateral Throughout] Blood Pressure 101/59 98/50 94/48 O2 Sat by Pulse 92 93 96 Oximetry 03/28/19 03/28/19 03/28/19 01:30 02:00 02:30 Temperature Pulse Rate 81 79 78 Pulse Rate [ Anterior Bilateral Throughout] Pulse Rate [ From Monitor] Respiratory 12 16 13 Rate Respiratory Rate [Anterior Bilateral Throughout] Blood Pressure 101/50 109/53 110/54 O2 Sat by Pulse 97 99 100 Oximetry 03/28/19 03/28/19 03/28/19 03:00 03:30 03:31 Temperature Pulse Rate 78 84 Pulse Rate [ 85 Anterior Bilateral Throughout] Pulse Rate [ From Monitor] Respiratory 19 12 Rate Respiratory 29 H Rate [Anterior Bilateral Throughout] Blood Pressure 102/63 113/71 O2 Sat by Pulse 100 100 Oximetry 03/28/19 03/28/19 03/28/19 04:00 04:30 05:00 Temperature 99.4 F Pulse Rate 81 83 82 Pulse Rate [ Anterior Bilateral Throughout] Pulse Rate [ 81 From Monitor] Respiratory 11 L 15 16 Rate Respiratory Rate [Anterior Bilateral Throughout] Blood Pressure 120/64 132/57 118/56 O2 Sat by Pulse 100 100 97 Oximetry 03/28/19 03/28/19 03/28/19 05:30 06:00 06:30 Temperature Pulse Rate 80 77 74 Pulse Rate [ Anterior Bilateral Throughout] Pulse Rate [ From Monitor] Respiratory 11 L 25 H 24 Rate Respiratory Rate [Anterior Bilateral Throughout] Blood Pressure 119/54 115/52 127/58 O2 Sat by Pulse 100 100 100 Oximetry 03/28/19 03/28/19 03/28/19 07:00 07:30 07:39 Temperature Pulse Rate 73 72 Pulse Rate [ 79 Anterior Bilateral Throughout] Pulse Rate [ From Monitor] Respiratory 22 19 Rate Respiratory 25 H Rate [Anterior Bilateral Throughout] Blood Pressure 113/55 112/51 O2 Sat by Pulse 100 100 Oximetry 03/28/19 03/28/19 03/28/19 07:40 07:50 08:00 Temperature 97.7 F Pulse Rate 73 75 74 Pulse Rate [ Anterior Bilateral Throughout] Pulse Rate [ From Monitor] Respiratory 25 H 25 H 25 H Rate Respiratory Rate [Anterior Bilateral Throughout] Blood Pressure 112/51 107/54 112/49 O2 Sat by Pulse 100 100 100 Oximetry 03/28/19 03/28/19 03/28/19 08:10 08:11 08:20 Temperature Pulse Rate 73 73 74 Pulse Rate [ Anterior Bilateral Throughout] Pulse Rate [ From Monitor] Respiratory 25 H 25 H Rate Respiratory Rate [Anterior Bilateral Throughout] Blood Pressure 97/45 97/45 100/46 O2 Sat by Pulse 100 100 99 Oximetry 03/28/19 03/28/19 03/28/19 08:30 08:40 08:50 Temperature Pulse Rate 75 74 74 Pulse Rate [ Anterior Bilateral Throughout] Pulse Rate [ From Monitor] Respiratory 25 H 25 H 25 H Rate Respiratory Rate [Anterior Bilateral Throughout] Blood Pressure 96/46 96/46 105/44 O2 Sat by Pulse 100 99 100 Oximetry 03/28/19 03/28/19 03/28/19 09:00 09:10 09:20 Temperature Pulse Rate 74 75 76 Pulse Rate [ Anterior Bilateral Throughout] Pulse Rate [ From Monitor] Respiratory 25 H 25 H 25 H Rate Respiratory Rate [Anterior Bilateral Throughout] Blood Pressure 100/45 100/45 105/45 O2 Sat by Pulse 99 100 98 Oximetry 03/28/19 03/28/19 03/28/19 09:30 09:40 09:50 Temperature Pulse Rate 77 76 77 Pulse Rate [ Anterior Bilateral Throughout] Pulse Rate [ From Monitor] Respiratory 21 24 15 Rate Respiratory Rate [Anterior Bilateral Throughout] Blood Pressure 114/55 114/55 117/54 O2 Sat by Pulse 98 99 97 Oximetry 03/28/19 03/28/19 03/28/19 10:00 10:10 10:20 Temperature Pulse Rate 78 78 78 Pulse Rate [ Anterior Bilateral Throughout] Pulse Rate [ From Monitor] Respiratory 15 25 H 25 H Rate Respiratory Rate [Anterior Bilateral Throughout] Blood Pressure 101/48 101/48 111/58 O2 Sat by Pulse 99 100 100 Oximetry 03/28/19 03/28/19 10:22 10:30 Temperature 98.8 F Pulse Rate 77 Pulse Rate [ Anterior Bilateral Throughout] Pulse Rate [ From Monitor] Respiratory 17 Rate Respiratory Rate [Anterior Bilateral Throughout] Blood Pressure 101/62 O2 Sat by Pulse 100 Oximetry - Lab 03/28/19 18:10 03/28/19 Unknown Most recent lab results ABG pH 7.326 pH Units (7.350-7.450) L 03/26/19 04:30 ABG pCO2 36.4 mm Hg 03/26/19 04:30 ABG pO2 137.4 mm Hg (80.0-90.0) H 03/26/19 04:30 ABG HCO3 18.6 mmol/L (20.0-26.0) L 03/26/19 04:30 ABG O2 Saturation 98.6 % (95.0-99.0) 03/26/19 04:30 Calcium 4.0 mg/dL (8.4-10.2) L* D 03/28/19 05:13 Phosphorus 12.40 mg/dL (2.5-4.5) H 03/28/19 05:13 Magnesium 2.40 mg/dL (1.7-2.3) H 03/18/19 08:40 Urine Creatinine 106.6 mg/dL (0.1-20.0) H 03/17/19 16:05 Urine Sodium 95 mmol/L 03/17/19 16:05 Medications & Allergies - Medications Allergies/Adverse Reactions: Allergies No Known Allergies Allergy (Unverified 03/16/19 17:17) Home Medications: Home Medications Medication Instructions Recorded Confirmed Last Taken Type Unobtainable 03/18/19 03/18/19 Unknown History Active Medications: Generic Name Dose Route Start Last Admin Trade Name Freq PRN Reason Stop Dose Admin Acetaminophen 650 mg 03/26/19 22:15 03/27/19 21:23 Tylenol PO 650 mg Q4H PRN Administration Pain, Mild (1-3), [id number]> Albuterol/Ipratropium 1 ampul 03/19/19 20:00 03/28/19 07:39 Duoneb *Not For Prn Use* IH 1 ampul Q4HRT PAOLO Administration Lipase/Protease/Amylase 1 each 03/17/19 14:45 Pancreazapril Purcell 10,500 Unit FEEDTUBE PRN PRN For Clogged Feeding Tube Calcitriol 0.5 mcg 03/26/19 11:00 03/27/19 09:56 Rocaltrol PO 0.5 mcg QDAY PAOLO Administration Dextrose 50 gm 03/19/19 18:39 03/26/19 23:26 D50w (25gm) Vial IV 50 gm PRN PRN Administration Hypoglycemia Fentanyl 50 mcg 03/26/19 12:00 03/27/19 13:47 Sublimaze IV 50 mcg Q1H PRN Administration Pain, Moderate (4-6) Hydrophilic Ointment 1 applic 03/16/19 15:50 Vaseline Lip Therapy TP Q2HR PRN Dry Lips Phenylephrine HCl 100 mg/ 100 mls @ 3 mls/hr 03/17/19 02:30 03/19/19 18:48 Sodium Chloride IV Infused TITR PAOLO Titration Protocol 50 MCG/MIN Sodium Chloride 100 mls @ 999 mls/hr 03/26/19 10:38 Nacl 0.9% IV NEYMAR PRN Hypotension Fentanyl Citrate 2,000 mcg in 100 mls @ 7.85 mls/hr 03/26/19 12:00 03/28/19 06:14 Fentanyl Drip Premix IV 1 mcg/kg/hr TITR PAOLO 7.85 mls/hr Administration Protocol 1 MCG/KG/HR Cefepime HCl 2 gm in 100 mls @ 200 mls/hr 03/27/19 14:00 03/27/19 14:36 Maxipime/Ns 2 Gm/100 Ml IV 200 mls/hr Q24H PAOLO Administration Protocol Norepinephrine 4 mg in 250 mls @ 7.5 mls/hr 03/27/19 22:16 03/28/19 09:53 Levophed Drip 4 Mg/Ns 250 Ml IV 18 mcg/min TITR PAOLO 67.5 mls/hr Titration Protocol 2 MCG/MIN Pantoprazole Sodium 80 mg/ 100 mls @ 10 mls/hr 03/28/19 09:30 03/28/19 09:30 Sodium Chloride IV 8 mg/hr DIRECT PAOLO 10 mls/hr Administration 8 MG/HR Vasopressin 20 unit/ Sodium 101 mls @ 9.09 mls/hr 03/28/19 09:00 03/28/19 09:00 Chloride IV 0.03 units/min TITR PAOLO 9.09 mls/hr Administration Protocol 0.03 UNITS/MIN Fluconazole 200 mg in 100 mls @ 100 mls/hr 03/28/19 10:00 03/28/19 10:30 Diflucan IV 100 mls/hr Q24HR PAOLO Administration Protocol Lorazepam 2 mg 03/26/19 11:54 03/27/19 02:44 Ativan IV 2 mg Q1H PRN Administration Agitation Metoprolol Tartrate 25 mg 03/28/19 14:00 Lopressor PO TID PALOO Multi-Ingred Cream/Lotion/Oil/Oint 1 applic 03/16/19 15:50 03/19/19 20:10 Artificial Tears Ophth Oint OU 1 applic Q4HR PRN Administration Dry Eye(s) Ondansetron HCl 4 mg 03/16/19 22:21 Zofran IV Q8H PRN Nausea And Vomiting Simple Syrup 15 ml 03/17/19 14:45 03/26/19 23:19 Simple Syrup FEEDTUBE 15 ml PRN PRN Administration Hypoglycemia Simple Syrup 30 ml 03/17/19 14:45 Simple Syrup FEEDTUBE PRN PRN Hypoglycemia Sodium Bicarbonate 325 mg 03/17/19 14:45 Sodium Bicarbonate FEEDTUBE PRN PRN For Clogged Feeding Tube
--- NOTE | 2019-03-28 10:45 | Progress Note ---
Assessment and Plan Assessment and plan: 43-year-old man with history of GERD and obesity who presented to the hospital altered mental status, he was visiting from [place] and brought in by his friend. He has been feeling ill for a few days and have left eye discharge and there was mention of right axilla/patient was more lethargic, had trouble breathing and then suddenly could not walk on his own. When he came to the ER was unable to speak or follow commands, in the ER he was found to have SVT with heart rate in the 250s. The patient was shocks and medicated. He became more confused and had trouble protecting his airway, he was then intubated -[facility] Status post, cardiopulmonary arrest, status post shock for SVT in 250s after which she deteriorated into polymorphic V. tach for which she was shocked again. And then intubated in the ER Paroxysmal A. fib with RVR Torsade sparkle points/ventricular tachycardia EF 40% * Cardiology input appreciated, continue amiodarone drip, no beta-adela or CHRISTIN given hypotension, will need ischemic cardiac stratification when improved Acute GI bleed, likely upper GI bleed -PPI drip, heparin drip discontinued, discussed with GI, will likely need scope, too unstable for bleeding scan Acute blood loss anemia Transfuse multiple units of PRBC, Right IJ nonocclusive thrombosis Discussed with vascular surgery, patient unable to tolerate anticoagulation due to thrombocytopenia and bleeding. Will monitor Septic shock with multiorgan failure, off pressors for 48 hours Aspiration pneumonia Brain MRI was a limited study due to lack of contrast and motion artifact. No acute findings on MRI brain, could not evaluate for leptomeningeal enhancement without IV contrast , follow-up blood cultures, , LP awaited due to low platelets. Continue antibiotics, tickborne serologies pending, prognosis guarded Acute kidney injury, rhabdomyolysis, hyperkalemia Continue dialysis per nephrology Acute hypoxic respiratory failure on mechanical ventilator greater than 96 hours Continue ventilator, continue to attempt to wean per the para machine operator Presume ARDS Profound hypocalcemia Being repleted, likely related to renal failure Acute Metabolic Encephalopathy Severe metabolic acidosis, rhabdomyolysis Thrombocytopenia Likely due to sepsis, continue to monitor Advanced care planning, family opting against DNR, wants all done. Will like a call if patient codes as they may opt for limited code The high probability of a clinically significant, sudden or life threatening deterioration of the [multiple organs] system(s) required my full and direct attention, intervention and personal management. The aggregate critical care time was [45] minutes. This time is in addition to time spent performing reported procedures but includes the following: [x] Data Review and interpretation [x] Patient assessment and monitoring of vital signs [x] Documentation [x] Medication orders and management History Interval history: Continues to have fever, no seizure, no agitation, -Per nursing staff he had blood in his mouth, blood in his stool, heparin drip was stopped but continued to have bleeding. Remains intubated and sedated Hospitalist Physical - Physical exam Narrative exam: General.: Appears ill, intubated HEENT: Moist mucous membranes, extraocular muscles intact, no lymphadenopathy Blood noted in patient's mouth Neck: supple Cardiac: S1-S2 heard Lungs: Decreased breath sounds, ventilated breath sounds Abdomen: soft , nontender, nondistended, bowel sounds positive Extremities: no edema clubbing or cyanosis Skin: no rash or lesions Neurologic: Intubated and sedated Psych: Intubated and sedated - Constitutional Vitals: Temp Pulse Resp BP Pulse Ox 98.8 F 77 17 101/62 100 03/28/19 10:22 03/28/19 10:30 03/28/19 10:30 03/28/19 10:30 03/28/19 10:30 General appearance: Present: other (intubated) Results - Labs CBC & Chem 7: 03/29/19 06:22 03/29/19 06:22 Labs: Laboratory Last Values WBC 19.2 K/mm3 (4.5-11.0) H 03/27/19 09:00 RBC 3.42 M/mm3 (3.65-5.03) L 03/27/19 09:00 Hgb 4.9 gm/dl (11.8-15.2) L* D 03/28/19 08:25 Hct 15.4 % (35.5-45.6) L* D 03/28/19 08:25 MCV 88 fl (84-94) 03/27/19 09:00 MCH 29 pg (28-32) 03/27/19 09:00 MCHC 33 % (32-34) 03/27/19 09:00 RDW 14.7 % (13.2-15.2) 03/27/19 09:00 Plt Count 87 K/mm3 (140-440) L 03/27/19 14:15 Dewey % (Auto) 1.6 % (0.0-7.3) 03/21/19 04:26 Dewey # 0.6 K/mm3 (0.0-0.8) 03/21/19 04:26 Add Manual Diff Complete 03/26/19 Unknown Total Counted 100 03/26/19 Unknown Seg Neutrophils % Ink Grinder 03/26/19 Unknown Seg Neuts % (Manual) 95.0 % (40.0-70.0) H 03/26/19 Unknown Band Neutrophils % 0 % 03/26/19 Unknown Lymphocytes % (Manual) 3.0 % (13.4-35.0) L 03/26/19 Unknown Reactive Lymphs % (Man) 0 % 03/26/19 Unknown Monocytes % (Manual) 1.0 % (0.0-7.3) 03/26/19 Unknown Eosinophils % (Manual) 0 % (0.0-4.3) 03/26/19 Unknown Basophils % (Manual) 0 % (0.0-1.8) 03/26/19 Unknown Metamyelocytes % 1.0 % 03/26/19 Unknown Myelocytes % 0 % 03/26/19 Unknown Promyelocytes % 0 % 03/26/19 Unknown Blast Cells % 0 % 03/26/19 Unknown Nucleated RBC % Not Reportable 03/26/19 Unknown Seg Neutrophils # 34.6 K/mm3 (1.8-7.7) H 03/21/19 04:26 Seg Neutrophils # Man 18.5 K/mm3 (1.8-7.7) H 03/26/19 Unknown Band Neutrophils # 0.0 K/mm3 03/26/19 Unknown Lymphocytes # (Manual) 0.6 K/mm3 (1.2-5.4) L 03/26/19 Unknown Abs React Lymphs (Man) 0.0 K/mm3 03/26/19 Unknown Monocytes # (Manual) 0.2 K/mm3 (0.0-0.8) 03/26/19 Unknown Eosinophils # (Manual) 0.0 K/mm3 (0.0-0.4) 03/26/19 Unknown Basophils # (Manual) 0.0 K/mm3 (0.0-0.1) 03/26/19 Unknown Metamyelocytes # 0.2 K/mm3 03/26/19 Unknown Myelocytes # 0.0 K/mm3 03/26/19 Unknown Promyelocytes # 0.0 K/mm3 03/26/19 Unknown Blast Cells # 0.0 K/mm3 03/26/19 Unknown WBC Morphology Not Reportable 03/26/19 Unknown Hypersegmented Neuts Not Reportable 03/26/19 Unknown Hyposegmented Neuts Not Reportable 03/26/19 Unknown Hypogranular Neuts Not Reportable 03/26/19 Unknown Smudge Cells Not Reportable 03/26/19 Unknown Toxic Granulation Not Reportable 03/26/19 Unknown Toxic Vacuolation Not Reportable 03/26/19 Unknown Dohle Bodies Not Reportable 03/26/19 Unknown Pelger-Huet Anomaly Not Reportable 03/26/19 Unknown Joyce Rods Not Reportable 03/26/19 Unknown Platelet Estimate Consistent w auto 03/26/19 Unknown Clumped Platelets Not Reportable 03/26/19 Unknown Plt Clumps, EDTA Not Reportable 03/26/19 Unknown Large Platelets Rare 03/26/19 Unknown Giant Platelets Not Reportable 03/26/19 Unknown Platelet Satelliting Not Reportable 03/26/19 Unknown Plt Morphology Comment Not Reportable 03/26/19 Unknown RBC Morphology Not Reportable 03/26/19 Unknown Dimorphic RBCs Not Reportable 03/26/19 Unknown Polychromasia Few 03/26/19 Unknown Hypochromasia Not Reportable 03/26/19 Unknown Poikilocytosis Not Reportable 03/26/19 Unknown Anisocytosis Few 03/26/19 Unknown Microcytosis Not Reportable 03/26/19 Unknown Macrocytosis Few 03/26/19 Unknown Spherocytes Not Reportable 03/26/19 Unknown Pappenheimer Bodies Not Reportable 03/26/19 Unknown Sickle Cells Not Reportable 03/26/19 Unknown Target Cells Not Reportable 03/26/19 Unknown Tear Drop Cells Not Reportable 03/26/19 Unknown Ovalocytes Not Reportable 03/26/19 Unknown Stomatocytes Few 03/26/19 Unknown Helmet Cells Not Reportable 03/26/[address] Shrestha-[place] Lucas Bodies Not Reportable 03/26/19 Unknown Pierson Rings Not Reportable 03/26/19 Unknown Hitchins Cells Not Reportable 03/26/19 Unknown Bite Cells Not Reportable 03/26/19 Unknown Crenated Cell Not Reportable 03/26/19 Unknown Elliptocytes Not Reportable 03/26/19 Unknown Acanthocytes (Spur) Not Reportable 03/26/19 Unknown Rouleaux Not Reportable 03/26/19 Unknown Hemoglobin C Crystals Not Reportable 03/26/19 Unknown Schistocytes Not Reportable 03/26/19 Unknown Malaria parasites Not Reportable 03/26/19 Unknown Phil Bodies Not Reportable 03/26/19 Unknown Hem Pathologist Commnt No 03/26/19 Unknown PT 15.9 Sec. (12.2-14.9) H 03/27/19 14:15 INR 1.30 (0.87-1.13) H 03/27/19 14:15 APTT 27.6 Sec. (24.2-36.6) 03/27/19 14:15 Heparin Anti-Xa Level 0.23 U.I./ml (0.3-0.7) L 03/28/19 05:13 POC ABG pH 7.338 (7.35-7.45) L 03/28/19 03:49 ABG pH 7.326 pH Units (7.350-7.450) L 03/26/19 04:30 POC ABG pCO2 33.1 (35-45) L 03/28/19 03:49 ABG pCO2 36.4 mm Hg 03/26/19 04:30 POC ABG pO2 92 (80-105) 03/28/19 03:49 ABG pO2 137.4 mm Hg (80.0-90.0) H 03/26/19 04:30 POC ABG HCO3 17.8 (22-26 mml/L) 03/28/19 03:49 ABG HCO3 18.6 mmol/L (20.0-26.0) L 03/26/19 04:30 POC ABG Total CO2 19 (23-27mmol/L) 03/28/19 03:49 POC ABG O2 Sat 97 03/28/19 03:49 ABG O2 Saturation 98.6 % (95.0-99.0) 03/26/19 04:30 ABG O2 Content 13.7 (0.0-44) 03/26/19 04:30 POC ABG Base Excess -8 ((-2) - (+3)mmol/L) 03/28/19 03:49 ABG Base Excess -6.8 mmol/L (-2.0-3.0) L 03/26/19 04:30 ABG Hemoglobin 9.9 gm/dl (14.0-18.0) L 03/26/19 04:30 ABG Carboxyhemoglobin 1.4 % (0.0-5.0) 03/26/19 04:30 ABG Methemoglobin 0.6 % (0.0-1.5) 03/26/19 04:30 Oxyhemoglobin 96.5 % (95.0-99.0) 03/26/19 04:30 FiO2 35 % 03/28/19 03:49 Sodium 135 mmol/L (137-145) L 03/28/19 05:13 Potassium 5.5 mmol/L (3.6-5.0) H D 03/28/19 05:13 Chloride 95.1 mmol/L (98-107) L 03/28/19 05:13 Carbon Dioxide 16 mmol/L (22-30) L D 03/28/19 05:13 Anion Gap 29 mmol/L 03/28/19 05:13 BUN 129 mg/dL (9-20) H 03/28/19 05:13 Creatinine 9.3 mg/dL (0.8-1.5) H 03/28/19 05:13 Estimated GFR 7 ml/min 03/28/19 05:13 BUN/Creatinine Ratio 14 % 03/28/19 05:13 Glucose 158 mg/dL (75-100) H 03/28/19 05:13 POC Glucose 202 (70-105) H 03/28/19 06:18 Lactic Acid 1.90 mmol/L (0.7-2.0) 03/21/19 21:31 Calcium 4.0 mg/dL (8.4-10.2) L* D 03/28/19 05:13 Phosphorus 12.40 mg/dL (2.5-4.5) H 03/28/19 05:13 Magnesium 2.40 mg/dL (1.7-2.3) H 03/18/19 08:40 Total Bilirubin 0.80 mg/dL (0.1-1.2) 03/27/19 04:30 Direct Bilirubin 5.9 mg/dL (0-0.2) H 03/16/19 17:05 Indirect Bilirubin 0.3 mg/dL 03/16/19 17:05 AST 78 units/L (5-40) H 03/27/19 04:30 ALT 43 units/L (7-56) 03/27/19 04:30 Alkaline Phosphatase 135 units/L (35-129) H 03/27/19 04:30 Total Creatine Kinase 4266 units/L (55-170) H 03/28/19 05:13 CK-MB (CK-2) 54.3 ng/mL (0.0-4.0) H 03/17/19 07:16 CK-MB (CK-2) Rel Index 0.0 (0-4) 03/17/19 07:16 Troponin T 0.058 ng/mL (0.00-0.029) H 03/17/19 07:16 C-Reactive Protein 13.30 mg/dL (0.00-1.30) H 03/20/19 14:45 Total Protein 4.8 g/dL (6.3-8.2) L 03/27/19 04:30 Albumin 2.3 g/dL (3.9-5) L 03/27/19 04:30 Albumin/Globulin Ratio 0.9 % 03/27/19 04:30 Triglycerides 409 mg/dL (2-149) H 03/27/19 04:30 Cholesterol 88 mg/dL (50-199) 03/16/19 22:32 LDL Cholesterol Direct 10 mg/dL (50-130) L 03/16/19 22:32 HDL Cholesterol 7 mg/dL (40-59) L 03/16/19 22:32 Cholesterol/HDL Ratio 12.57 % 03/16/19 22:32 Procalcitonin 25.42 ng/mL (<0.15) 03/27/19 19:21 TSH 2.200 mlU/mL (0.270-4.200) 03/16/19 17:05 Free T4 0.72 ng/dL (0.76-1.46) L 03/16/19 17:05 PTH Intact 329.9 pg/mL (15-65) H 03/25/19 05:00 Urine Color Kathy (Yellow) 03/17/19 16:05 Urine Turbidity Cloudy (Clear) 03/17/19 16:05 Urine pH 5.0 (5.0-7.0) 03/17/19 16:[address] 1.014 (1.003-1.030) 03/17/19 16:05 Urine Protein >500 mg/dL (Negative) 03/17/19 16:05 Urine Glucose (UA) 50 mg/dL (Negative) 03/17/19 16:05 Urine Ketones Tr mg/dL (Negative) 03/17/19 16:05 Urine Blood Lg (Negative) 03/17/19 16:05 Urine Nitrite Neg (Negative) 03/17/19 16:05 Urine Bilirubin Neg (Negative) 03/17/19 16:05 Urine Urobilinogen < 2.0 mg/dL (<2.0) 03/17/19 16:05 Ur Leukocyte Esterase Mod (Negative) 03/17/19 16:05 Urine WBC (Auto) 30.0 /HPF (0.0-6.0) H 03/17/19 16:05 Urine RBC (Auto) 11.0 /HPF (0.0-6.0) 03/17/19 16:05 U Epithel Cells (Auto) < 1.0 /HPF (0-13.0) 03/17/19 16:05 Urine Mucus Few /HPF 03/17/19 16:05 Urine Sperm 2+ /HPF (SPINDLE REPAIRER) 03/17/19 16:05 Urine Eosinophils None seen (None Seen) 03/17/19 16:05 Urine Creatinine 106.6 mg/dL (0.1-20.0) H 03/17/19 16:05 Urine Sodium 95 mmol/L 03/17/19 16:05 Vancomycin Trough 11.5 ug/mL (5.0-20.0) 03/18/19 13:19 Random Vancomycin 8.2 ug/mL (0-40.0) 03/27/19 04:30 Salicylates < 0.3 mg/dL (2.8-20.0) L 03/16/19 17:05 Urine Opiates Screen Presumptive negative 03/17/19 16:05 Urine Methadone Screen Presumptive negative 03/17/19 16:05 Acetaminophen < 5.0 ug/mL (10.0-30.0) L 03/16/19 17:05 Ur Barbiturates Screen Presumptive negative 03/17/19 16:05 Ur Phencyclidine Scrn Presumptive negative 03/17/19 16:05 Ur Amphetamines Screen Presumptive negative 03/17/19 16:05 U Benzodiazepines Scrn Presumptive positive 03/17/19 16:05 Urine Cocaine Screen Presumptive negative 03/17/19 16:05 U Marijuana (THC) Screen Presumptive negative 03/17/19 16:05 Drugs of Abuse Note Disclamer 03/17/19 16:05 Plasma/Serum Alcohol < 0.01 % (0-0.07) 03/16/19 17:05 Hepatitis A IgM Ab Non-reactive (NonReactive) 03/18/19 13:18 Hep Bs Antigen Non-reactive (Negative) 03/18/19 13:18 Hep B Core IgM Ab Non-reactive (NonReactive) 03/18/19 13:18 Hepatitis C Antibody Non-reactive (NonReactive) 03/18/19 13:18 HIV 1&2 Antibody Rapid Non react (Non React) 03/17/19 11:52 HIV P24 Antigen Non react (Non React) 03/17/19 11:52 Influenza A (Rapid) Negative (Negative) 03/17/19 17:00 Influenza B (Rapid) Negative (Negative) 03/17/19 17:00 Group A Strep Rapid Negative (Negative) 03/17/19 17:00 Crossmatch See Detail 03/28/19 10:00 Active Medications - Current Medications Current Medications: Generic Name Dose Route Start Last Admin Trade Name Freq PRN Reason Stop Dose Admin Acetaminophen 650 mg 03/26/19 22:15 03/27/19 21:23 Tylenol PO 650 mg Q4H PRN Administration Pain, Mild (1-3), .5> Albuterol/Ipratropium 1 ampul 03/19/19 20:00 03/28/19 07:39 Duoneb *Not For Prn Use* IH 1 ampul Q4HRT PAOLO Administration Lipase/Protease/Amylase 1 each 03/17/19 14:45 Pancrekarly Purcell 10,500 Unit FEEDTUBE PRN PRN For Clogged Feeding Tube Calcitriol 0.5 mcg 03/26/19 11:00 03/27/19 09:56 Rocaltrol PO 0.5 mcg QDAY PAOLO Administration Dextrose 50 gm 03/19/19 18:39 03/26/19 23:26 D50w (25gm) Vial IV 50 gm PRN PRN Administration Hypoglycemia Fentanyl 50 mcg 03/26/19 12:00 03/27/19 13:47 Sublimaze IV 50 mcg Q1H PRN Administration Pain, Moderate (4-6) Hydrophilic Ointment 1 applic 03/16/19 15:50 Vaseline Lip Therapy TP Q2HR PRN Dry Lips Phenylephrine HCl 100 mg/ 100 mls @ 3 mls/hr 03/17/19 02:30 03/19/19 18:48 Sodium Chloride IV Infused TITR PAOLO Titration Protocol 50 MCG/MIN Sodium Chloride 100 mls @ 999 mls/hr 03/26/19 10:38 Nacl 0.9% IV NEYMAR PRN Hypotension Fentanyl Citrate 2,000 mcg in 100 mls @ 7.85 mls/hr 03/26/19 12:00 03/28/19 06:14 Fentanyl Drip Premix IV 1 mcg/kg/hr TITR PAOLO 7.85 mls/hr Administration Protocol 1 MCG/KG/HR Cefepime HCl 2 gm in 100 mls @ 200 mls/hr 03/27/19 14:00 03/27/19 14:36 Maxipime/Ns 2 Gm/100 Ml IV 200 mls/hr Q24H PAOLO Administration Protocol Norepinephrine 4 mg in 250 mls @ 7.5 mls/hr 03/27/19 22:16 03/28/19 09:53 Levophed Drip 4 Mg/Ns 250 Ml IV 18 mcg/min TITR PAOLO 67.5 mls/hr Titration Protocol 2 MCG/MIN Pantoprazole Sodium 80 mg/ 100 mls @ 10 mls/hr 03/28/19 09:30 03/28/19 09:30 Sodium Chloride IV 8 mg/hr DIRECT PAOLO 10 mls/hr Administration 8 MG/HR Vasopressin 20 unit/ Sodium 101 mls @ 9.09 mls/hr 03/28/19 09:00 03/28/19 09:00 Chloride IV 0.03 units/min TITR PAOLO 9.09 mls/hr Administration Protocol 0.03 UNITS/MIN Fluconazole 200 mg in 100 mls @ 100 mls/hr 03/28/19 10:00 03/28/19 10:30 Diflucan IV 100 mls/hr Q24HR PAOLO Administration Protocol Sodium Chloride 100 mls @ 999 mls/hr 03/28/19 10:41 Nacl 0.9% IV NEYMAR PRN Hypotension Lorazepam 2 mg 03/26/19 11:54 03/27/19 02:44 Ativan IV 2 mg Q1H PRN Administration Agitation Metoprolol Tartrate 25 mg 03/28/19 14:00 Lopressor PO TID PAOLO Multi-Ingred Cream/Lotion/Oil/Oint 1 applic 03/16/19 15:50 03/19/19 20:10 Artificial Tears Ophth Oint OU 1 applic Q4HR PRN Administration Dry Eye(s) Ondansetron HCl 4 mg 03/16/19 22:21 Zofran IV Q8H PRN Nausea And Vomiting Simple Syrup 15 ml 03/17/19 14:45 03/26/19 23:19 Simple Syrup FEEDTUBE 15 ml PRN PRN Administration Hypoglycemia Simple Syrup 30 ml 03/17/19 14:45 Simple Syrup FEEDTUBE PRN PRN Hypoglycemia Sodium Bicarbonate 325 mg 03/17/19 14:45 Sodium Bicarbonate FEEDTUBE PRN PRN For Clogged Feeding Tube Nutrition/Malnutrition Assess - Dietary Evaluation Nutrition/Malnutrition Findings: Nutrition Notes Start: 03/17/19 14:22 Freq: Status: Active Protocol: Document 03/27/19 10:01 AIYANA (Rec: 03/27/19 10:34 AIYANA [email or web address]) Co-Sign 03/27/19 10:01 LM Nutrition Notes Initial or Follow up Reassessment Current Diagnosis Acute Kidney Injury Other Pertinent Diagnosis on HD, Septic shock,Multiple organ failure, encephalopathy, rhabdomyolysis Current Diet Nepro with Carbsteady at 55ml/ hr Labs/Tests Na 135 Cl 93.5 BUN 84 Cr 7.1 Pertinent Medications Solu-corterf Height 6 ft Weight 157 kg [place] Body Weight (kg) 80.90 BMI 46.9 Subjective/Other Information Pt is tolerating TF per MD. TF is at 40ml/hr Percent of energy/protein needs met: 79%/38% Burn Absent Trauma Absent Minimum of two criteria No #1 Nutrition Diagnosis Inadequate oral intake Diagnosis Progress(for reassessment Continues documentation) Is patient on ventilator? Yes Is Patient Ambulatory and/or Out of Bed No REE-([employer]-confined to bed) 2994.036 Kcal/Kg value to use for calculation 14 Approximate Energy Requirements Using 2198 kcal/Kg Calculation Used for Recommendations Kcal/kg Additional Notes Protein Needs: 202g (2.5g/kg IBW 80.9) Fluid Needs: 1 ml/kcal or per MD Nutrition Intervention Change Diet Order: Continue current Nutrition Support: Nepro 1.8 at 55 ml/hr Flush 100 ml q4hr for hyponatremia Kcal 2,376 Protein (gm) 107 Fluid (mL) 960 Goal #1 TF tolerance Goal #2 Meet at least 75% of energy and protein needs Anticipated Discharge Needs: Unable to determine at this time Follow-Up By: 03/29/19 Additional Comments F/U for TF tolerance and goal rate
--- NOTE | 2019-03-28 10:48 | Progress Note ---
Assessment and Plan Severe sepsis with shock. Hemorrhagic shock with acute GIB RIJ thrombus, possibly infected Right axilla abscess versus localized pannus/fatty collection. Acute hypoxemic respiratory failure, on mechanical ventilator support. Likely aspiration pneumonia, bilateral. Morbid obesity. Rhabdomyolysis. Acute kidney injury on HD. Leukocytosis-persistent Morbid obesity. Metabolic acidosis. Lactic acidosis. Hypomagnesemia. Elevated serum transaminases/possible shock liver. Acute encephalopathy, toxic metabolic Thrombocytopenia- etiology, multifactorial- improving -Stat Hand H ordered -Transfuse one unit O- blood -Cross match 2 units of blood and 1 unit FFP -Transfuse PRBC's to keep HgB > 7g/dL -Stop heparin, will need RIJ removed and trialysis catheter placed on the left side. He will not be a candidate for therapeutic anticoagulation -Administer protamine sulfate and 1 dose of ddAVP -Place OGT to LIS -Stop all tube feedings -Start on pantoprazole infusion -Strict NPO -GI consult -Wean vasopressors for MAP>65 -No weaning trials today, because of hemodynmaic instability -Precedex was discontinued yesterday, his agitation appeared to be better with the addition of Seroquel -Discussed with ID at the bedside- with the fevers post line exchange, there is a possibility of infected thrombus dislodging causing bactermeia- cultures repeated, antibiotics were changed and anti-fungal added to therapy - keep on PRVC/AC ,ABG in the morning -CXR in the morning -wean FiO2 for O2 sats>92% -Target sedation for RASS 0 to -1, continue propofol and intermittent fentanyl dosing, daily SAT - continue HD/UF per nephrology - VAP bundle addressed - prn analgesia per CPOT score - Monitor hemodynamics closely - continue mobility protocols and off loading as tolerated for pressure ulcer prevention - continue to avoid nephrotoxins, adjust all medications for GFR and CRCL - continue VTE prophylaxis ( SCDs) - accuchecks with glycemic control per SSI for target BG of 140-180 mg/dl acutely -Discussed with TAYLOR alexandre nutritional support, has not had nutritional support for over a week now - continue other care per attending / other consultants Spoke to his brother at length and updated him that the patient is critical Issues discussed with the brother this morning- no weaning trials, no spinal tap until platelets are better Discussed acute GIB and he will need endoscopy Discussed that we are back on vasopressors, and we are having to transfuse the patient Discussed trachesotomy Discussed the change in antibiotics/antiinfective Notified him of RIJ thrombus and the anticoagulation. The anticoagulation will b e held in view of active bleeding. Updated him on MRI findings, no concerning structural abnormality but does not address meningitis or anoxia CONDITION: CRITICAL PROGNOSIS: GUARDED CODE STATUS: FULL CODE Discussed extensively with RT/RN in ICU IDT rounds Discussed with ID- Dr. Risa Meraz Discussed with Cardiology- Dr. Rubalcava The high probability of a clinically significant, sudden or life threatening deterioration of the [respiratory, renal, neurologic and Cardiovascular, gastrointestinal] systems required my full and direct attention, intervention and personal management. The aggregate critical care time was 75 minutes. This time is in addition to time spent performing reported procedures but includes the following: [x] Data Review and interpretation [x] Patient assessment and monitoring of vital signs [x] Documentation [x] Medication orders and management Subjective Date of service: 03/28/19 Principal diagnosis: Septic Shock; Ac. hypoxemic resp failure; Renzo. PNA; Rhabdomyolysis; RUBEN Interval history: Patient is seen today for: Severe sepsis with shock; Acute hypoxemic respiratory failure; Aspiration pneumonia; Morbid obesity; Rhabdomyolysis; Acute kidney injury; Morbid obesity; Elevated serum transaminases/possible shock liver; Acute encephalopathy (Toxic/Met) Seen and examined at bedside; 24hour events reviewed; nursing and respiratory care staff consulted; no adverse overnight events reported to me;some agitaton, awake and alert, appears to track on verbal stimulation; remains critically ill on MVS; on fentanyl. Events overnight- hematemesis associated with hypotension requiring vasopressor support on norepinephrine and vasopressin Had RIJ HD catheter changed to trialysis, heparin had been started yesterday for RIJ thrombus. While I was examining him at the [facility], he had another bout of hematemesis- about 300ml Vitals, labs, medications, chart and imaging reviewed. On full MVS AC 25/500/8/40% ABG 7.44/28/109.5/18.8/-4.4 Objective Vital Signs - 12hr 03/27/19 03/27/19 03/27/19 22:52 23:00 23:25 Temperature Pulse Rate 88 87 Pulse Rate [ 98 H Anterior Bilateral Throughout] Pulse Rate [ From Monitor] Respiratory 17 17 Rate Respiratory 30 H Rate [Anterior Bilateral Throughout] Blood Pressure 82/40 90/41 O2 Sat by Pulse 97 97 Oximetry 03/27/19 03/27/19 03/27/19 23:26 23:30 23:58 Temperature 102.5 F H Pulse Rate 88 87 Pulse Rate [ Anterior Bilateral Throughout] Pulse Rate [ From Monitor] Respiratory 16 Rate Respiratory Rate [Anterior Bilateral Throughout] Blood Pressure 105/56 97/58 O2 Sat by Pulse 98 100 Oximetry 03/28/19 03/28/19 03/28/19 00:00 00:30 01:00 Temperature 102.5 F H Pulse Rate 88 86 84 Pulse Rate [ Anterior Bilateral Throughout] Pulse Rate [ 88 From Monitor] Respiratory 17 14 12 Rate Respiratory Rate [Anterior Bilateral Throughout] Blood Pressure 101/59 98/50 94/48 O2 Sat by Pulse 92 93 96 Oximetry 03/28/19 03/28/19 03/28/19 01:30 02:00 02:30 Temperature Pulse Rate 81 79 78 Pulse Rate [ Anterior Bilateral Throughout] Pulse Rate [ From Monitor] Respiratory 12 16 13 Rate Respiratory Rate [Anterior Bilateral Throughout] Blood Pressure 101/50 109/53 110/54 O2 Sat by Pulse 97 99 100 Oximetry 03/28/19 03/28/19 03/28/19 03:00 03:30 03:31 Temperature Pulse Rate 78 84 Pulse Rate [ 85 Anterior Bilateral Throughout] Pulse Rate [ From Monitor] Respiratory 19 12 Rate Respiratory 29 H Rate [Anterior Bilateral Throughout] Blood Pressure 102/63 113/71 O2 Sat by Pulse 100 100 Oximetry 03/28/19 03/28/19 03/28/19 04:00 04:30 05:00 Temperature 99.4 F Pulse Rate 81 83 82 Pulse Rate [ Anterior Bilateral Throughout] Pulse Rate [ 81 From Monitor] Respiratory 11 L 15 16 Rate Respiratory Rate [Anterior Bilateral Throughout] Blood Pressure 120/64 132/57 118/56 O2 Sat by Pulse 100 100 97 Oximetry 03/28/19 03/28/19 03/28/19 05:30 06:00 06:30 Temperature Pulse Rate 80 77 74 Pulse Rate [ Anterior Bilateral Throughout] Pulse Rate [ From Monitor] Respiratory 11 L 25 H 24 Rate Respiratory Rate [Anterior Bilateral Throughout] Blood Pressure 119/54 115/52 127/58 O2 Sat by Pulse 100 100 100 Oximetry 03/28/19 03/28/19 03/28/19 07:00 07:30 07:39 Temperature Pulse Rate 73 72 Pulse Rate [ 79 Anterior Bilateral Throughout] Pulse Rate [ From Monitor] Respiratory 22 19 Rate Respiratory 25 H Rate [Anterior Bilateral Throughout] Blood Pressure 113/55 112/51 O2 Sat by Pulse 100 100 Oximetry 03/28/19 03/28/19 03/28/19 07:40 07:50 08:00 Temperature 97.7 F Pulse Rate 73 75 74 Pulse Rate [ Anterior Bilateral Throughout] Pulse Rate [ From Monitor] Respiratory 25 H 25 H 25 H Rate Respiratory Rate [Anterior Bilateral Throughout] Blood Pressure 112/51 107/54 112/49 O2 Sat by Pulse 100 100 100 Oximetry 03/28/19 03/28/19 03/28/19 08:10 08:11 08:20 Temperature Pulse Rate 73 73 74 Pulse Rate [ Anterior Bilateral Throughout] Pulse Rate [ From Monitor] Respiratory 25 H 25 H Rate Respiratory Rate [Anterior Bilateral Throughout] Blood Pressure 97/45 97/45 100/46 O2 Sat by Pulse 100 100 99 Oximetry 03/28/19 03/28/19 03/28/19 08:30 08:40 08:50 Temperature Pulse Rate 75 74 74 Pulse Rate [ Anterior Bilateral Throughout] Pulse Rate [ From Monitor] Respiratory 25 H 25 H 25 H Rate Respiratory Rate [Anterior Bilateral Throughout] Blood Pressure 96/46 96/46 105/44 O2 Sat by Pulse 100 99 100 Oximetry 03/28/19 03/28/19 03/28/19 09:00 09:10 09:20 Temperature Pulse Rate 74 75 76 Pulse Rate [ Anterior Bilateral Throughout] Pulse Rate [ From Monitor] Respiratory 25 H 25 H 25 H Rate Respiratory Rate [Anterior Bilateral Throughout] Blood Pressure 100/45 100/45 105/45 O2 Sat by Pulse 99 100 98 Oximetry 03/28/19 03/28/19 03/28/19 09:30 09:40 09:50 Temperature Pulse Rate 77 76 77 Pulse Rate [ Anterior Bilateral Throughout] Pulse Rate [ From Monitor] Respiratory 21 24 15 Rate Respiratory Rate [Anterior Bilateral Throughout] Blood Pressure 114/55 114/55 117/54 O2 Sat by Pulse 98 99 97 Oximetry 03/28/19 03/28/19 03/28/19 10:00 10:10 10:20 Temperature Pulse Rate 78 78 78 Pulse Rate [ Anterior Bilateral Throughout] Pulse Rate [ From Monitor] Respiratory 15 25 H 25 H Rate Respiratory Rate [Anterior Bilateral Throughout] Blood Pressure 101/48 101/48 111/58 O2 Sat by Pulse 99 100 100 Oximetry 03/28/19 03/28/19 10:22 10:30 Temperature 98.8 F Pulse Rate 77 Pulse Rate [ Anterior Bilateral Throughout] Pulse Rate [ From Monitor] Respiratory 17 Rate Respiratory Rate [Anterior Bilateral Throughout] Blood Pressure 101/62 O2 Sat by Pulse 100 Oximetry Constitutional: lethargic, other (middle aged morbidly obese CM, normocephalic with incresed respiratory effort on MVS) Eyes: icteric ENT: oropharynx moist, other (ETT 23-24 cm PEDRO, ulcers over his upper lip) Neck: supple, no lymphadenopathy, no JVD, other (large neck circumference) Effort: mildly labored Ascultation: Bilateral: diminished breath sounds, rales Percussion: Bilateral: not dull Cardiovascular: regular rate and rhythm, other ( S1,S2) Gastrointestinal: hypoactive bowel sounds, soft, non-tender, non-distended, other (obese) Integumentary: normal, other (blisters with some weeping over the extremities) Extremities: no cyanosis, pink and warm, pulses normal, no ischemia or petechiae Neurologic: pupils equal and round, other (obeys simple commands when SAT was done) Psychiatric: other (inable to assess) CBC and BMP: 03/29/19 06:22 03/29/19 06:22 ABG, PT/INR, D-dimer: ABG POC ABG pH 7.338 (7.35-7.45) L 03/28/19 03:49 ABG pH 7.326 pH Units (7.350-7.450) L 03/26/19 04:30 POC ABG pCO2 33.1 (35-45) L 03/28/19 03:49 ABG pCO2 36.4 mm Hg 03/26/19 04:30 POC ABG pO2 92 (80-105) 03/28/19 03:49 ABG pO2 137.4 mm Hg (80.0-90.0) H 03/26/19 04:30 POC ABG HCO3 17.8 (22-26 mml/L) 03/28/19 03:49 POC ABG Total CO2 19 (23-27mmol/L) 03/28/19 03:49 POC ABG O2 Sat 97 03/28/19 03:49 ABG O2 Saturation 98.6 % (95.0-99.0) 03/26/19 04:30 PT/INR, D-dimer PT 15.9 Sec. (12.2-14.9) H 03/27/19 14:15 INR 1.30 (0.87-1.13) H 03/27/19 14:15 Abnormal lab findings: Abnormal Labs 03/16/19 03/16/19 03/16/19 15:32 16:03 16:05 WBC 27.0 H RBC 5.55 H Hgb 15.7 H Hct 47.1 H RDW Plt Count 75 L Seg Neuts % (Manual) 85.0 H Lymphocytes % (Manual) 2.0 L Monocytes % (Manual) Nucleated RBC % Seg Neutrophils # Seg Neutrophils # Man 23.0 H Lymphocytes # (Manual) 0.5 L Monocytes # (Manual) PT INR Heparin Anti-Xa Level POC ABG pH ABG pH POC ABG pCO2 POC ABG pO2 ABG pO2 ABG HCO3 ABG O2 Saturation ABG Base Excess ABG Hemoglobin Oxyhemoglobin Sodium 127 L Potassium Chloride 87.8 L Carbon Dioxide 17 L BUN 49 H Creatinine 5.8 H Glucose 150 H POC Glucose 118 H Lactic Acid Calcium 6.6 L Phosphorus Magnesium 1.10 L Total Bilirubin Direct Bilirubin AST ALT Alkaline Phosphatase Total Creatine Kinase 55896 H CK-MB (CK-2) Troponin T C-Reactive Protein Total Protein Albumin Triglycerides LDL Cholesterol Direct HDL Cholesterol Free T4 PTH Intact Urine WBC (Auto) Urine Creatinine Salicylates Acetaminophen Crossmatch 03/16/19 03/16/19 03/16/19 16:59 17:05 17:05 WBC RBC Hgb Hct RDW Plt Count Seg Neuts % (Manual) Lymphocytes % (Manual) Monocytes % (Manual) Nucleated RBC % Seg Neutrophils # Seg Neutrophils # Man Lymphocytes # (Manual) Monocytes # (Manual) PT INR Heparin Anti-Xa Level POC ABG pH 7.297 L ABG pH POC ABG pCO2 33.0 L POC ABG pO2 ABG pO2 ABG HCO3 ABG O2 Saturation ABG Base Excess ABG Hemoglobin Oxyhemoglobin Sodium Potassium Chloride Carbon Dioxide BUN Creatinine Glucose POC Glucose Lactic Acid Calcium Phosphorus Magnesium Total Bilirubin Direct Bilirubin AST ALT Alkaline Phosphatase Total Creatine Kinase 49880 H CK-MB (CK-2) 83.1 H Troponin T C-Reactive Protein Total Protein Albumin Triglycerides LDL Cholesterol Direct HDL Cholesterol Free T4 0.72 L PTH Intact Urine WBC (Auto) Urine Creatinine Salicylates Acetaminophen Crossmatch 03/16/19 03/16/19 03/16/19 17:05 17:05 17:05 WBC RBC Hgb Hct RDW Plt Count Seg Neuts % (Manual) Lymphocytes % (Manual) Monocytes % (Manual) Nucleated RBC % Seg Neutrophils # Seg Neutrophils # Man Lymphocytes # (Manual) Monocytes # (Manual) PT INR Heparin Anti-Xa Level POC ABG pH ABG pH POC ABG pCO2 POC ABG pO2 ABG pO2 ABG HCO3 ABG O2 Saturation ABG Base Excess ABG Hemoglobin Oxyhemoglobin Sodium Potassium Chloride Carbon Dioxide BUN Creatinine Glucose POC Glucose Lactic Acid 5.10 H* Calcium Phosphorus Magnesium Total Bilirubin Direct Bilirubin AST ALT Alkaline Phosphatase Total Creatine Kinase CK-MB (CK-2) Troponin T C-Reactive Protein Total Protein Albumin Triglycerides LDL Cholesterol Direct HDL Cholesterol Free T4 PTH Intact Urine WBC (Auto) Urine Creatinine Salicylates < 0.3 L Acetaminophen < 5.0 L Crossmatch 03/16/19 03/16/19 03/16/19 17:05 17:05 20:35 WBC RBC Hgb Hct RDW Plt Count Seg Neuts % (Manual) Lymphocytes % (Manual) Monocytes % (Manual) Nucleated RBC % Seg Neutrophils # Seg Neutrophils # Man Lymphocytes # (Manual) Monocytes # (Manual) PT 15.9 H INR 1.30 H Heparin Anti-Xa Level POC ABG pH ABG pH POC ABG pCO2 POC ABG pO2 ABG pO2 ABG HCO3 ABG O2 Saturation ABG Base Excess ABG Hemoglobin Oxyhemoglobin Sodium Potassium Chloride Carbon Dioxide BUN Creatinine Glucose POC Glucose Lactic Acid 3.30 H* Calcium Phosphorus Magnesium Total Bilirubin 6.20 H Direct Bilirubin 5.9 H AST 800 H ALT 120 H Alkaline Phosphatase Total Creatine Kinase CK-MB (CK-2) Troponin T C-Reactive Protein Total Protein 4.4 L Albumin 2.4 L Triglycerides LDL Cholesterol Direct HDL Cholesterol Free T4 PTH Intact Urine WBC (Auto) Urine Creatinine Salicylates Acetaminophen Crossmatch 03/16/19 03/16/19 03/16/19 21:45 22:32 Unknown WBC RBC Hgb Hct RDW Plt Count Seg Neuts % (Manual) Lymphocytes % (Manual) Monocytes % (Manual) Nucleated RBC % Seg Neutrophils # Seg Neutrophils # Man Lymphocytes # (Manual) Monocytes # (Manual) PT INR Heparin Anti-Xa Level POC ABG pH ABG pH POC ABG pCO2 POC ABG pO2 ABG pO2 ABG HCO3 ABG O2 Saturation ABG Base Excess ABG Hemoglobin Oxyhemoglobin Sodium Potassium Chloride Carbon Dioxide BUN Creatinine Glucose POC Glucose Lactic Acid 3.30 H* 3.00 H* Calcium Phosphorus Magnesium Total Bilirubin Direct Bilirubin AST ALT Alkaline Phosphatase Total Creatine Kinase CK-MB (CK-2) Troponin T 0.047 H D C-Reactive Protein Total Protein Albumin Triglycerides 395 H LDL Cholesterol Direct 10 L HDL Cholesterol 7 L Free T4 PTH Intact Urine WBC (Auto) Urine Creatinine Salicylates Acetaminophen Crossmatch 03/17/19 03/17/19 03/17/19 03:45 03:45 03:45 WBC RBC Hgb Hct RDW Plt Count Seg Neuts % (Manual) Lymphocytes % (Manual) Monocytes % (Manual) Nucleated RBC % Seg Neutrophils # Seg Neutrophils # Man Lymphocytes # (Manual) Monocytes # (Manual) PT INR Heparin Anti-Xa Level POC ABG pH ABG pH POC ABG pCO2 POC ABG pO2 ABG pO2 ABG HCO3 ABG O2 Saturation ABG Base Excess ABG Hemoglobin Oxyhemoglobin Sodium 131 L Potassium Chloride 88.9 L Carbon Dioxide BUN 53 H Creatinine 7.1 H Glucose POC Glucose Lactic Acid 4.10 H* Calcium 5.4 L* D Phosphorus 7.30 H Magnesium 1.60 L Total Bilirubin 5.90 H Direct Bilirubin AST 801 H ALT 109 H Alkaline Phosphatase Total Creatine Kinase 18315 H 10381 H CK-MB (CK-2) 41.5 H Troponin T 0.054 H C-Reactive Protein Total Protein 4.5 L Albumin 2.0 L Triglycerides LDL Cholesterol Direct HDL Cholesterol Free T4 PTH Intact Urine WBC (Auto) Urine Creatinine Salicylates Acetaminophen Crossmatch 03/17/19 03/17/19 03/17/19 05:47 07:16 07:16 WBC RBC Hgb Hct RDW Plt Count Seg Neuts % (Manual) Lymphocytes % (Manual) Monocytes % (Manual) Nucleated RBC % Seg Neutrophils # Seg Neutrophils # Man Lymphocytes # (Manual) Monocytes # (Manual) PT INR Heparin Anti-Xa Level POC ABG pH 7.193 L ABG pH POC ABG pCO2 45.2 H POC ABG pO2 65 L ABG pO2 ABG HCO3 ABG O2 Saturation ABG Base Excess ABG Hemoglobin Oxyhemoglobin Sodium Potassium Chloride Carbon Dioxide BUN Creatinine Glucose POC Glucose Lactic Acid 5.50 H* Calcium Phosphorus Magnesium Total Bilirubin Direct Bilirubin AST ALT Alkaline Phosphatase Total Creatine Kinase 70324 H CK-MB (CK-2) 54.3 H Troponin T 0.058 H C-Reactive Protein Total Protein Albumin Triglycerides LDL Cholesterol Direct HDL Cholesterol Free T4 PTH Intact Urine WBC (Auto) Urine Creatinine Salicylates Acetaminophen Crossmatch 03/17/19 03/17/19 03/17/19 11:52 12:51 13:01 WBC RBC Hgb Hct RDW Plt Count Seg Neuts % (Manual) Lymphocytes % (Manual) Monocytes % (Manual) Nucleated RBC % Seg Neutrophils # Seg Neutrophils # Man Lymphocytes # (Manual) Monocytes # (Manual) PT INR Heparin Anti-Xa Level POC ABG pH 7.154 L ABG pH POC ABG pCO2 34.3 L POC ABG pO2 73 L ABG pO2 ABG HCO3 ABG O2 Saturation ABG Base Excess ABG Hemoglobin Oxyhemoglobin Sodium Potassium Chloride Carbon Dioxide BUN Creatinine Glucose POC Glucose 60 L Lactic Acid 8.20 H* Calcium Phosphorus Magnesium Total Bilirubin Direct Bilirubin AST ALT Alkaline Phosphatase Total Creatine Kinase CK-MB (CK-2) Troponin T C-Reactive Protein Total Protein Albumin Triglycerides LDL Cholesterol Direct HDL Cholesterol Free T4 PTH Intact Urine WBC (Auto) Urine Creatinine Salicylates Acetaminophen Crossmatch 03/17/19 03/17/19 03/17/19 14:37 14:37 14:37 WBC 29.3 H RBC Hgb Hct RDW 15.8 H Plt Count 45 L Seg Neuts % (Manual) 81.0 H Lymphocytes % (Manual) 1.0 L Monocytes % (Manual) 15.0 H Nucleated RBC % Seg Neutrophils # Seg Neutrophils # Man 23.7 H Lymphocytes # (Manual) 0.3 L Monocytes # (Manual) 4.4 H PT INR Heparin Anti-Xa Level POC ABG pH ABG pH POC ABG pCO2 POC ABG pO2 ABG pO2 ABG HCO3 ABG O2 Saturation ABG Base Excess ABG Hemoglobin Oxyhemoglobin Sodium Potassium Chloride Carbon Dioxide BUN Creatinine Glucose POC Glucose Lactic Acid 4.90 H* Calcium Phosphorus Magnesium Total Bilirubin Direct Bilirubin AST ALT Alkaline Phosphatase Total Creatine Kinase CK-MB (CK-2) Troponin T C-Reactive Protein 24.90 H Total Protein Albumin Triglycerides LDL Cholesterol Direct HDL Cholesterol Free T4 PTH Intact Urine WBC (Auto) Urine Creatinine Salicylates Acetaminophen Crossmatch 03/17/19 03/17/1919 16:05 16:05 17:02 WBC RBC Hgb Hct RDW Plt Count Seg Neuts % (Manual) Lymphocytes % (Manual) Monocytes % (Manual) Nucleated RBC % Seg Neutrophils # Seg Neutrophils # Man Lymphocytes # (Manual) Monocytes # (Manual) PT INR Heparin Anti-Xa Level POC ABG pH 7.183 L ABG pH POC ABG pCO2 POC ABG pO2 65 L ABG pO2 ABG HCO3 ABG O2 Saturation ABG Base Excess ABG Hemoglobin Oxyhemoglobin Sodium Potassium Chloride Carbon Dioxide BUN Creatinine Glucose POC Glucose Lactic Acid Calcium Phosphorus Magnesium Total Bilirubin Direct Bilirubin AST ALT Alkaline Phosphatase Total Creatine Kinase CK-MB (CK-2) Troponin T C-Reactive Protein Total Protein Albumin Triglycerides LDL Cholesterol Direct HDL Cholesterol Free T4 PTH Intact Urine WBC (Auto) 30.0 H Urine Creatinine 106.6 H Salicylates Acetaminophen Crossmatch 03/18/19 03/18/19 03/18/19 05:12 05:16 05:53 WBC RBC Hgb Hct RDW Plt Count Seg Neuts % (Manual) Lymphocytes % (Manual) Monocytes % (Manual) Nucleated RBC % Seg Neutrophils # Seg Neutrophils # Man Lymphocytes # (Manual) Monocytes # (Manual) PT INR Heparin Anti-Xa Level POC ABG pH 7.257 L ABG pH POC ABG pCO2 31.6 L POC ABG pO2 69 L ABG pO2 ABG HCO3 ABG O2 Saturation ABG Base Excess ABG Hemoglobin Oxyhemoglobin Sodium Potassium Chloride Carbon Dioxide BUN Creatinine Glucose POC Glucose 141 H Lactic Acid 5.00 H* Calcium Phosphorus Magnesium Total Bilirubin Direct Bilirubin AST ALT Alkaline Phosphatase Total Creatine Kinase CK-MB (CK-2) Troponin T C-Reactive Protein Total Protein Albumin Triglycerides LDL Cholesterol Direct HDL Cholesterol Free T4 PTH Intact Urine WBC (Auto) Urine Creatinine Salicylates Acetaminophen Crossmatch 03/18/19 03/18/19 03/18/19 06:57 08:40 08:40 WBC 31.7 H RBC Hgb Hct RDW 15.5 H Plt Count 35 L Seg Neuts % (Manual) Lymphocytes % (Manual) Monocytes % (Manual) Nucleated RBC % Seg Neutrophils # Seg Neutrophils # Man Lymphocytes # (Manual) Monocytes # (Manual) PT INR Heparin Anti-Xa Level POC ABG pH ABG pH POC ABG pCO2 POC ABG pO2 ABG pO2 ABG HCO3 ABG O2 Saturation ABG Base Excess ABG Hemoglobin Oxyhemoglobin Sodium 132 L Potassium 5.5 H D Chloride 88.5 L Carbon Dioxide 18 L BUN 71 H Creatinine 8.1 H Glucose 205 H POC Glucose Lactic Acid 5.00 H* Calcium 4.1 L* D Phosphorus Magnesium 2.40 H Total Bilirubin 7.50 H Direct Bilirubin AST 1088 H ALT 159 H Alkaline Phosphatase 190 H Total Creatine Kinase 117300 H CK-MB (CK-2) Troponin T C-Reactive Protein Total Protein 4.7 L Albumin 1.8 L Triglycerides LDL Cholesterol Direct HDL Cholesterol Free T4 PTH Intact Urine WBC (Auto) Urine Creatinine Salicylates Acetaminophen Crossmatch 03/18/19 03/18/19 03/18/19 12:33 12:50 13:19 WBC RBC Hgb Hct RDW Plt Count Seg Neuts % (Manual) Lymphocytes % (Manual) Monocytes % (Manual) Nucleated RBC % Seg Neutrophils # Seg Neutrophils # Man Lymphocytes # (Manual) Monocytes # (Manual) PT INR Heparin Anti-Xa Level POC ABG pH 7.282 L ABG pH POC ABG pCO2 POC ABG pO2 67 L ABG pO2 ABG HCO3 ABG O2 Saturation ABG Base Excess ABG Hemoglobin Oxyhemoglobin Sodium Potassium Chloride Carbon Dioxide BUN Creatinine Glucose POC Glucose 129 H Lactic Acid 3.30 H* Calcium Phosphorus Magnesium Total Bilirubin Direct Bilirubin AST ALT Alkaline Phosphatase Total Creatine Kinase CK-MB (CK-2) Troponin T C-Reactive Protein Total Protein Albumin Triglycerides LDL Cholesterol Direct HDL Cholesterol Free T4 PTH Intact Urine WBC (Auto) Urine Creatinine Salicylates Acetaminophen Crossmatch 03/18/19 03/18/19 03/18/19 13:19 16:50 18:11 WBC RBC Hgb Hct RDW Plt Count Seg Neuts % (Manual) Lymphocytes % (Manual) Monocytes % (Manual) Nucleated RBC % Seg Neutrophils # Seg Neutrophils # Man Lymphocytes # (Manual) Monocytes # (Manual) PT INR Heparin Anti-Xa Level POC ABG pH ABG pH POC ABG pCO2 POC ABG pO2 59 L ABG pO2 ABG HCO3 ABG O2 Saturation ABG Base Excess ABG Hemoglobin Oxyhemoglobin Sodium Potassium Chloride Carbon Dioxide BUN Creatinine Glucose POC Glucose 151 H Lactic Acid Calcium 4.2 L* Phosphorus Magnesium Total Bilirubin Direct Bilirubin AST ALT Alkaline Phosphatase Total Creatine Kinase 433477 H CK-MB (CK-2) Troponin T C-Reactive Protein Total Protein Albumin Triglycerides LDL Cholesterol Direct HDL Cholesterol Free T4 PTH Intact Urine WBC (Auto) Urine Creatinine Salicylates Acetaminophen Crossmatch 03/18/19 03/18/19 03/19/19 18:20 23:39 01:42 WBC RBC Hgb Hct RDW Plt Count Seg Neuts % (Manual) Lymphocytes % (Manual) Monocytes % (Manual) Nucleated RBC % Seg Neutrophils # Seg Neutrophils # Man Lymphocytes # (Manual) Monocytes # (Manual) PT INR Heparin Anti-Xa Level POC ABG pH 7.345 L ABG pH 7.285 L POC ABG pCO2 POC ABG pO2 59 L ABG pO2 44.0 L ABG HCO3 ABG O2 Saturation 70.9 L ABG Base Excess -5.7 L ABG Hemoglobin 11.9 L Oxyhemoglobin 69.6 L Sodium Potassium Chloride Carbon Dioxide BUN Creatinine Glucose POC Glucose 152 H Lactic Acid Calcium Phosphorus Magnesium Total Bilirubin Direct Bilirubin AST ALT Alkaline Phosphatase Total Creatine Kinase CK-MB (CK-2) Troponin T C-Reactive Protein Total Protein Albumin Triglycerides LDL Cholesterol Direct HDL Cholesterol Free T4 PTH Intact Urine WBC (Auto) Urine Creatinine Salicylates Acetaminophen Crossmatch 03/19/19 03/19/19 03/19/19 04:00 04:00 05:35 WBC 36.5 H RBC Hgb Hct RDW 15.8 H Plt Count 35 L Seg Neuts % (Manual) Lymphocytes % (Manual) Monocytes % (Manual) Nucleated RBC % Seg Neutrophils # Seg Neutrophils # Man Lymphocytes # (Manual) Monocytes # (Manual) PT INR Heparin Anti-Xa Level POC ABG pH ABG pH 7.265 L POC ABG pCO2 POC ABG pO2 ABG pO2 35.4 L* ABG HCO3 ABG O2 Saturation 54.4 L ABG Base Excess -6.7 L ABG Hemoglobin 12.9 L Oxyhemoglobin 53.4 L Sodium 132 L Potassium 5.7 H Chloride 89.8 L Carbon Dioxide 19 L BUN 62 H Creatinine 6.4 H Glucose 151 H POC Glucose Lactic Acid Calcium 5.2 L* D Phosphorus Magnesium Total Bilirubin 7.80 H Direct Bilirubin AST 682 H ALT 130 H Alkaline Phosphatase 167 H Total Creatine Kinase CK-MB (CK-2) Troponin T C-Reactive Protein Total Protein 4.8 L Albumin 2.3 L Triglycerides LDL Cholesterol Direct HDL Cholesterol Free T4 PTH Intact Urine WBC (Auto) Urine Creatinine Salicylates Acetaminophen Crossmatch 03/19/19 03/19/19 03/19/19 05:49 09:16 09:50 WBC RBC Hgb Hct RDW Plt Count Seg Neuts % (Manual) Lymphocytes % (Manual) Monocytes % (Manual) Nucleated RBC % Seg Neutrophils # Seg Neutrophils # Man Lymphocytes # (Manual) Monocytes # (Manual) PT INR Heparin Anti-Xa Level POC ABG pH 7.222 L ABG pH POC ABG pCO2 56.6 H POC ABG pO2 ABG pO2 ABG HCO3 ABG O2 Saturation ABG Base Excess ABG Hemoglobin Oxyhemoglobin Sodium Potassium Chloride Carbon Dioxide BUN Creatinine Glucose POC Glucose 154 H Lactic Acid 2.70 H* Calcium Phosphorus Magnesium Total Bilirubin Direct Bilirubin AST ALT Alkaline Phosphatase Total Creatine Kinase CK-MB (CK-2) Troponin T C-Reactive Protein Total Protein Albumin Triglycerides LDL Cholesterol Direct HDL Cholesterol Free T4 PTH Intact Urine WBC (Auto) Urine Creatinine Salicylates Acetaminophen Crossmatch 03/19/19 03/19/19 03/19/19 09:50 11:28 17:58 WBC RBC Hgb Hct RDW Plt Count Seg Neuts % (Manual) Lymphocytes % (Manual) Monocytes % (Manual) Nucleated RBC % Seg Neutrophils # Seg Neutrophils # Man Lymphocytes # (Manual) Monocytes # (Manual) PT INR Heparin Anti-Xa Level POC ABG pH 7.250 L ABG pH POC ABG pCO2 52.6 H POC ABG pO2 ABG pO2 ABG HCO3 ABG O2 Saturation ABG Base Excess ABG Hemoglobin Oxyhemoglobin Sodium Potassium Chloride Carbon Dioxide BUN Creatinine Glucose POC Glucose 160 H Lactic Acid Calcium Phosphorus Magnesium Total Bilirubin Direct Bilirubin AST ALT Alkaline Phosphatase Total Creatine Kinase 30559 H CK-MB (CK-2) Troponin T C-Reactive Protein Total Protein Albumin Triglycerides LDL Cholesterol Direct HDL Cholesterol Free T4 PTH Intact Urine WBC (Auto) Urine Creatinine Salicylates Acetaminophen Crossmatch 03/19/19 03/19/19 03/20/19 19:48 21:03 02:16 WBC RBC Hgb Hct RDW Plt Count Seg Neuts % (Manual) Lymphocytes % (Manual) Monocytes % (Manual) Nucleated RBC % Seg Neutrophils # Seg Neutrophils # Man Lymphocytes # (Manual) Monocytes # (Manual) PT INR Heparin Anti-Xa Level POC ABG pH 7.279 L ABG pH POC ABG pCO2 50.3 H POC ABG pO2 129 H ABG pO2 ABG HCO3 ABG O2 Saturation ABG Base Excess ABG Hemoglobin Oxyhemoglobin Sodium Potassium Chloride Carbon Dioxide BUN Creatinine Glucose POC Glucose 119 H 119 H Lactic Acid Calcium Phosphorus Magnesium Total Bilirubin Direct Bilirubin AST ALT Alkaline Phosphatase Total Creatine Kinase CK-MB (CK-2) Troponin T C-Reactive Protein Total Protein Albumin Triglycerides LDL Cholesterol Direct HDL Cholesterol Free T4 PTH Intact Urine WBC (Auto) Urine Creatinine Salicylates Acetaminophen Crossmatch 03/20/19 03/20/19 03/20/19 04:23 05:05 09:30 WBC 36.3 H RBC Hgb Hct RDW 15.5 H Plt Count 29 L Seg Neuts % (Manual) Lymphocytes % (Manual) Monocytes % (Manual) Nucleated RBC % Seg Neutrophils # Seg Neutrophils # Man Lymphocytes # (Manual) Monocytes # (Manual) PT INR Heparin Anti-Xa Level POC ABG pH ABG pH POC ABG pCO2 POC ABG pO2 280 H ABG pO2 ABG HCO3 ABG O2 Saturation ABG Base Excess ABG Hemoglobin Oxyhemoglobin Sodium Potassium Chloride Carbon Dioxide BUN Creatinine Glucose POC Glucose 115 H Lactic Acid Calcium Phosphorus Magnesium Total Bilirubin Direct Bilirubin AST ALT Alkaline Phosphatase Total Creatine Kinase CK-MB (CK-2) Troponin T C-Reactive Protein Total Protein Albumin Triglycerides LDL Cholesterol Direct HDL Cholesterol Free T4 PTH Intact Urine WBC (Auto) Urine Creatinine Salicylates Acetaminophen Crossmatch 03/20/19 03/20/19 03/20/19 09:30 09:30 11:34 WBC RBC Hgb Hct RDW Plt Count Seg Neuts % (Manual) Lymphocytes % (Manual) Monocytes % (Manual) Nucleated RBC % Seg Neutrophils # Seg Neutrophils # Man Lymphocytes # (Manual) Monocytes # (Manual) PT INR Heparin Anti-Xa Level POC ABG pH ABG pH POC ABG pCO2 POC ABG pO2 ABG pO2 ABG HCO3 ABG O2 Saturation ABG Base Excess ABG Hemoglobin Oxyhemoglobin Sodium 131 L Potassium Chloride 92.3 L Carbon Dioxide 20 L BUN 68 H Creatinine 6.1 H Glucose 164 H POC Glucose 141 H Lactic Acid Calcium 5.3 L* Phosphorus Magnesium Total Bilirubin 9.50 H Direct Bilirubin AST 381 H ALT 116 H Alkaline Phosphatase 255 H Total Creatine Kinase 17697 H CK-MB (CK-2) Troponin T C-Reactive Protein Total Protein 5.1 L Albumin 2.3 L Triglycerides LDL Cholesterol Direct HDL Cholesterol Free T4 PTH Intact Urine WBC (Auto) Urine Creatinine Salicylates Acetaminophen Crossmatch 03/20/19 03/20/19 03/20/19 14:41 14:45 18:50 WBC RBC Hgb Hct RDW Plt Count Seg Neuts % (Manual) Lymphocytes % (Manual) Monocytes % (Manual) Nucleated RBC % Seg Neutrophils # Seg Neutrophils # Man Lymphocytes # (Manual) Monocytes # (Manual) PT INR Heparin Anti-Xa Level POC ABG pH ABG pH POC ABG pCO2 POC ABG pO2 ABG pO2 ABG HCO3 ABG O2 Saturation ABG Base Excess ABG Hemoglobin Oxyhemoglobin Sodium Potassium Chloride Carbon Dioxide BUN Creatinine Glucose POC Glucose 117 H Lactic Acid 2.90 H* Calcium Phosphorus Magnesium Total Bilirubin Direct Bilirubin AST ALT Alkaline Phosphatase Total Creatine Kinase CK-MB (CK-2) Troponin T C-Reactive Protein 13.30 H Total Protein Albumin Triglycerides LDL Cholesterol Direct HDL Cholesterol Free T4 PTH Intact Urine WBC (Auto) Urine Creatinine Salicylates Acetaminophen Crossmatch 03/20/19 03/21/19 03/21/19 21:55 04:26 04:26 WBC 37.8 H RBC Hgb Hct RDW 15.4 H Plt Count 36 L Seg Neuts % (Manual) 93.0 H Lymphocytes % (Manual) 3.0 L Monocytes % (Manual) Nucleated RBC % 1.0 H Seg Neutrophils # 34.6 H Seg Neutrophils # Man 35.2 H Lymphocytes # (Manual) 1.1 L Monocytes # (Manual) PT INR Heparin Anti-Xa Level POC ABG pH ABG pH POC ABG pCO2 POC ABG pO2 ABG pO2 ABG HCO3 ABG O2 Saturation ABG Base Excess ABG Hemoglobin Oxyhemoglobin Sodium 131 L Potassium Chloride 90.7 L Carbon Dioxide 21 L BUN 69 H Creatinine 5.7 H Glucose 170 H POC Glucose 128 H Lactic Acid Calcium 6.1 L D Phosphorus Magnesium Total Bilirubin 9.50 H Direct Bilirubin AST 308 H ALT 124 H Alkaline Phosphatase 327 H Total Creatine Kinase 01741 H CK-MB (CK-2) Troponin T C-Reactive Protein Total Protein 5.7 L Albumin 2.6 L Triglycerides LDL Cholesterol Direct HDL Cholesterol Free T4 PTH Intact Urine WBC (Auto) Urine Creatinine Salicylates Acetaminophen Crossmatch 03/21/19 03/21/19 03/21/19 05:17 05:39 08:29 WBC RBC Hgb Hct RDW Plt Count Seg Neuts % (Manual) Lymphocytes % (Manual) Monocytes % (Manual) Nucleated RBC % Seg Neutrophils # Seg Neutrophils # Man Lymphocytes # (Manual) Monocytes # (Manual) PT INR Heparin Anti-Xa Level POC ABG pH ABG pH POC ABG pCO2 POC ABG pO2 209 H ABG pO2 ABG HCO3 ABG O2 Saturation ABG Base Excess ABG Hemoglobin Oxyhemoglobin Sodium Potassium Chloride Carbon Dioxide BUN Creatinine Glucose POC Glucose 145 H Lactic Acid Calcium Phosphorus Magnesium Total Bilirubin Direct Bilirubin AST ALT Alkaline Phosphatase Total Creatine Kinase 70172 H CK-MB (CK-2) Troponin T C-Reactive Protein Total Protein Albumin Triglycerides LDL Cholesterol Direct HDL Cholesterol Free T4 PTH Intact Urine WBC (Auto) Urine Creatinine Salicylates Acetaminophen Crossmatch 03/21/19 03/21/19 03/21/19 08:29 11:43 12:00 WBC RBC Hgb Hct RDW Plt Count Seg Neuts % (Manual) Lymphocytes % (Manual) Monocytes % (Manual) Nucleated RBC % Seg Neutrophils # Seg Neutrophils # Man Lymphocytes # (Manual) Monocytes # (Manual) PT INR Heparin Anti-Xa Level POC ABG pH ABG pH POC ABG pCO2 POC ABG pO2 ABG pO2 ABG HCO3 ABG O2 Saturation ABG Base Excess ABG Hemoglobin Oxyhemoglobin Sodium Potassium Chloride Carbon Dioxide BUN Creatinine Glucose POC Glucose 123 H Lactic Acid 2.60 H* 2.20 H* Calcium Phosphorus Magnesium Total Bilirubin Direct Bilirubin AST ALT Alkaline Phosphatase Total Creatine Kinase CK-MB (CK-2) Troponin T C-Reactive Protein Total Protein Albumin Triglycerides LDL Cholesterol Direct HDL Cholesterol Free T4 PTH Intact Urine WBC (Auto) Urine Creatinine Salicylates Acetaminophen Crossmatch 03/21/19 03/21/19 03/21/19 14:11 18:28 19:32 WBC RBC Hgb Hct RDW Plt Count Seg Neuts % (Manual) Lymphocytes % (Manual) Monocytes % (Manual) Nucleated RBC % Seg Neutrophils # Seg Neutrophils # Man Lymphocytes # (Manual) Monocytes # (Manual) PT INR Heparin Anti-Xa Level POC ABG pH 7.293 L ABG pH POC ABG pCO2 POC ABG pO2 ABG pO2 ABG HCO3 ABG O2 Saturation ABG Base Excess ABG Hemoglobin Oxyhemoglobin Sodium Potassium Chloride Carbon Dioxide BUN Creatinine Glucose POC Glucose 153 H Lactic Acid 2.10 H* Calcium Phosphorus Magnesium Total Bilirubin Direct Bilirubin AST ALT Alkaline Phosphatase Total Creatine Kinase CK-MB (CK-2) Troponin T C-Reactive Protein Total Protein Albumin Triglycerides LDL Cholesterol Direct HDL Cholesterol Free T4 PTH Intact Urine WBC (Auto) Urine Creatinine Salicylates Acetaminophen Crossmatch 09/03/22/19 03/22/19 23:38 05:08 05:51 WBC RBC Hgb Hct RDW Plt Count Seg Neuts % (Manual) Lymphocytes % (Manual) Monocytes % (Manual) Nucleated RBC % Seg Neutrophils # Seg Neutrophils # Man Lymphocytes # (Manual) Monocytes # (Manual) PT INR Heparin Anti-Xa Level POC ABG pH 7.283 L ABG pH POC ABG pCO2 POC ABG pO2 53 L ABG pO2 ABG HCO3 ABG O2 Saturation ABG Base Excess ABG Hemoglobin Oxyhemoglobin Sodium Potassium Chloride Carbon Dioxide BUN Creatinine Glucose POC Glucose 149 H 131 H Lactic Acid Calcium Phosphorus Magnesium Total Bilirubin Direct Bilirubin AST ALT Alkaline Phosphatase Total Creatine Kinase CK-MB (CK-2) Troponin T C-Reactive Protein Total Protein Albumin Triglycerides LDL Cholesterol Direct HDL Cholesterol Free T4 PTH Intact Urine WBC (Auto) Urine Creatinine Salicylates Acetaminophen Crossmatch 03/22/19 03/22/19 03/22/19 08:00 08:00 18:19 WBC 36.7 H RBC Hgb 11.0 L Hct 33.5 L RDW 15.5 H Plt Count 43 L Seg Neuts % (Manual) 87.0 H Lymphocytes % (Manual) 7.0 L Monocytes % (Manual) Nucleated RBC % Seg Neutrophils # Seg Neutrophils # Man 31.9 H Lymphocytes # (Manual) Monocytes # (Manual) PT INR Heparin Anti-Xa Level POC ABG pH ABG pH POC ABG pCO2 46.4 H POC ABG pO2 108 H ABG pO2 ABG HCO3 ABG O2 Saturation ABG Base Excess ABG Hemoglobin Oxyhemoglobin Sodium 132 L Potassium 5.6 H Chloride 89.6 L Carbon Dioxide 20 L BUN 101 H Creatinine 7.4 H Glucose 124 H POC Glucose Lactic Acid Calcium 5.2 L* Phosphorus Magnesium Total Bilirubin 2.80 H Direct Bilirubin AST 119 H ALT 86 H Alkaline Phosphatase 245 H Total Creatine Kinase CK-MB (CK-2) Troponin T C-Reactive Protein Total Protein 5.6 L Albumin 2.5 L Triglycerides LDL Cholesterol Direct HDL Cholesterol Free T4 PTH Intact Urine WBC (Auto) Urine Creatinine Salicylates Acetaminophen Crossmatch 03/22/19 03/23/19 03/23/19 20:37 04:49 05:28 WBC 35.9 H RBC Hgb 10.8 L Hct 33.2 L RDW 15.5 H Plt Count 49 L Seg Neuts % (Manual) 81.0 H Lymphocytes % (Manual) 3.5 L Monocytes % (Manual) Nucleated RBC % Seg Neutrophils # Seg Neutrophils # Man 29.1 H Lymphocytes # (Manual) Monocytes # (Manual) 1.4 H PT INR Heparin Anti-Xa Level POC ABG pH 7.296 L ABG pH POC ABG pCO2 46.2 H POC ABG pO2 ABG pO2 ABG HCO3 ABG O2 Saturation ABG Base Excess ABG Hemoglobin Oxyhemoglobin Sodium 129 L Potassium 5.2 H Chloride 91.1 L Carbon Dioxide BUN 91 H Creatinine 6.6 H Glucose 190 H POC Glucose Lactic Acid Calcium 5.3 L* Phosphorus Magnesium Total Bilirubin 1.80 H Direct Bilirubin AST 80 H ALT 62 H Alkaline Phosphatase 209 H Total Creatine Kinase 9758 H CK-MB (CK-2) Troponin T C-Reactive Protein Total Protein 5.2 L Albumin 2.2 L Triglycerides LDL Cholesterol Direct HDL Cholesterol Free T4 PTH Intact Urine WBC (Auto) Urine Creatinine Salicylates Acetaminophen Crossmatch 03/23/19 03/23/19 03/23/19 05:28 05:31 11:33 WBC 29.7 H RBC 3.59 L Hgb 10.1 L Hct 31.1 L RDW 15.4 H Plt Count 47 L Seg Neuts % (Manual) 89.0 H Lymphocytes % (Manual) 6.0 L Monocytes % (Manual) Nucleated RBC % 1.0 H Seg Neutrophils # Seg Neutrophils # Man 26.4 H Lymphocytes # (Manual) Monocytes # (Manual) PT INR Heparin Anti-Xa Level POC ABG pH ABG pH POC ABG pCO2 POC ABG pO2 ABG pO2 ABG HCO3 ABG O2 Saturation ABG Base Excess ABG Hemoglobin Oxyhemoglobin Sodium Potassium Chloride Carbon Dioxide BUN Creatinine Glucose POC Glucose 122 H 113 H Lactic Acid Calcium Phosphorus Magnesium Total Bilirubin Direct Bilirubin AST ALT Alkaline Phosphatase Total Creatine Kinase CK-MB (CK-2) Troponin T C-Reactive Protein Total Protein Albumin Triglycerides LDL Cholesterol Direct HDL Cholesterol Free T4 PTH Intact Urine WBC (Auto) Urine Creatinine Salicylates Acetaminophen Crossmatch 03/23/19 03/24/19 03/24/19 17:47 00:00 04:50 WBC 35.0 H RBC Hgb 10.4 L Hct 32.4 L RDW Plt Count 60 L Seg Neuts % (Manual) 93.0 H Lymphocytes % (Manual) 5.0 L Monocytes % (Manual) Nucleated RBC % 7.0 H Seg Neutrophils # Seg Neutrophils # Man 32.6 H Lymphocytes # (Manual) Monocytes # (Manual) PT INR Heparin Anti-Xa Level POC ABG pH ABG pH POC ABG pCO2 POC ABG pO2 ABG pO2 ABG HCO3 ABG O2 Saturation ABG Base Excess ABG Hemoglobin Oxyhemoglobin Sodium Potassium Chloride Carbon Dioxide BUN Creatinine Glucose POC Glucose 111 H 108 H Lactic Acid Calcium Phosphorus Magnesium Total Bilirubin Direct Bilirubin AST ALT Alkaline Phosphatase Total Creatine Kinase CK-MB (CK-2) Troponin T C-Reactive Protein Total Protein Albumin Triglycerides LDL Cholesterol Direct HDL Cholesterol Free T4 PTH Intact Urine WBC (Auto) Urine Creatinine Salicylates Acetaminophen Crossmatch 03/24/19 03/24/19 03/24/19 04:50 05:06 12:55 WBC RBC Hgb Hct RDW Plt Count Seg Neuts % (Manual) Lymphocytes % (Manual) Monocytes % (Manual) Nucleated RBC % Seg Neutrophils # Seg Neutrophils # Man Lymphocytes # (Manual) Monocytes # (Manual) PT INR Heparin Anti-Xa Level POC ABG pH ABG pH POC ABG pCO2 POC ABG pO2 ABG pO2 ABG HCO3 ABG O2 Saturation ABG Base Excess ABG Hemoglobin Oxyhemoglobin Sodium 134 L Potassium 5.1 H Chloride 95.3 L Carbon Dioxide 21 L BUN 85 H Creatinine 6.4 H Glucose 109 H POC Glucose 112 H 110 H Lactic Acid Calcium 5.8 L* Phosphorus Magnesium Total Bilirubin Direct Bilirubin AST ALT Alkaline Phosphatase Total Creatine Kinase 5747 H CK-MB (CK-2) Troponin T C-Reactive Protein Total Protein Albumin Triglycerides LDL Cholesterol Direct HDL Cholesterol Free T4 PTH Intact Urine WBC (Auto) Urine Creatinine Salicylates Acetaminophen Crossmatch 03/24/19 03/25/19 03/25/19 23:29 05:00 05:00 WBC RBC Hgb Hct RDW Plt Count Seg Neuts % (Manual) Lymphocytes % (Manual) Monocytes % (Manual) Nucleated RBC % Seg Neutrophils # Seg Neutrophils # Man Lymphocytes # (Manual) Monocytes # (Manual) PT INR Heparin Anti-Xa Level POC ABG pH ABG pH POC ABG pCO2 POC ABG pO2 ABG pO2 ABG HCO3 ABG O2 Saturation ABG Base Excess ABG Hemoglobin Oxyhemoglobin Sodium 133 L Potassium Chloride 94.0 L Carbon Dioxide 21 L BUN 81 H Creatinine 6.4 H Glucose POC Glucose 109 H Lactic Acid Calcium 5.5 L* Phosphorus Magnesium Total Bilirubin Direct Bilirubin AST 80 H ALT Alkaline Phosphatase 202 H Total Creatine Kinase 3589 H CK-MB (CK-2) Troponin T C-Reactive Protein Total Protein 5.3 L Albumin 2.4 L Triglycerides LDL Cholesterol Direct HDL Cholesterol Free T4 PTH Intact 329.9 H Urine WBC (Auto) Urine Creatinine Salicylates Acetaminophen Crossmatch 03/25/19 03/25/19 03/26/19 05:00 06:30 04:30 WBC 23.3 H RBC 3.61 L Hgb 10.2 L Hct 31.2 L RDW Plt Count 57 L Seg Neuts % (Manual) 92.0 H Lymphocytes % (Manual) 6.0 L Monocytes % (Manual) Nucleated RBC % Seg Neutrophils # Seg Neutrophils # Man 21.4 H Lymphocytes # (Manual) Monocytes # (Manual) PT INR Heparin Anti-Xa Level POC ABG pH ABG pH 7.326 L POC ABG pCO2 POC ABG pO2 ABG pO2 109.5 H 137.4 H ABG HCO3 18.8 L 18.6 L ABG O2 Saturation ABG Base Excess -4.4 L -6.8 L ABG Hemoglobin 10.1 L 9.9 L Oxyhemoglobin Sodium Potassium Chloride Carbon Dioxide BUN Creatinine Glucose POC Glucose Lactic Acid Calcium Phosphorus Magnesium Total Bilirubin Direct Bilirubin AST ALT Alkaline Phosphatase Total Creatine Kinase CK-MB (CK-2) Troponin T C-Reactive Protein Total Protein Albumin Triglycerides LDL Cholesterol Direct HDL Cholesterol Free T4 PTH Intact Urine WBC (Auto) Urine Creatinine Salicylates Acetaminophen Crossmatch 03/26/19 03/26/19 03/26/19 23:22 Unknown Unknown WBC 19.5 H RBC 3.44 L Hgb 9.8 L Hct 29.9 L RDW Plt Count 85 L Seg Neuts % (Manual) 95.0 H Lymphocytes % (Manual) 3.0 L Monocytes % (Manual) Nucleated RBC % Seg Neutrophils # Seg Neutrophils # Man 18.5 H Lymphocytes # (Manual) 0.6 L Monocytes # (Manual) PT INR Heparin Anti-Xa Level POC ABG pH ABG pH POC ABG pCO2 POC ABG pO2 ABG pO2 ABG HCO3 ABG O2 Saturation ABG Base Excess ABG Hemoglobin Oxyhemoglobin Sodium 135 L Potassium 5.2 H D Chloride 92.2 L Carbon Dioxide 18 L BUN 109 H Creatinine 8.5 H Glucose 117 H POC Glucose 69 L Lactic Acid Calcium 4.5 L* D Phosphorus Magnesium Total Bilirubin Direct Bilirubin AST ALT Alkaline Phosphatase Total Creatine Kinase 4527 H CK-MB (CK-2) Troponin T C-Reactive Protein Total Protein Albumin Triglycerides LDL Cholesterol Direct HDL Cholesterol Free T4 PTH Intact Urine WBC (Auto) Urine Creatinine Salicylates Acetaminophen Crossmatch 03/27/19 03/27/19 03/27/19 04:30 04:30 09:00 WBC 19.2 H RBC 3.42 L Hgb 9.9 L Hct 30.0 L RDW Plt Count 84 L Seg Neuts % (Manual) Lymphocytes % (Manual) Monocytes % (Manual) Nucleated RBC % Seg Neutrophils # Seg Neutrophils # Man Lymphocytes # (Manual) Monocytes # (Manual) PT INR Heparin Anti-Xa Level POC ABG pH ABG pH POC ABG pCO2 POC ABG pO2 ABG pO2 ABG HCO3 ABG O2 Saturation ABG Base Excess ABG Hemoglobin Oxyhemoglobin Sodium 135 L Potassium Chloride 93.5 L Carbon Dioxide BUN 84 H Creatinine 7.1 H Glucose POC Glucose Lactic Acid Calcium 5.0 L* Phosphorus Magnesium Total Bilirubin Direct Bilirubin AST 78 H ALT Alkaline Phosphatase 135 H Total Creatine Kinase 4677 H CK-MB (CK-2) Troponin T C-Reactive Protein Total Protein 4.8 L Albumin 2.3 L Triglycerides 409 H LDL Cholesterol Direct HDL Cholesterol Free T4 PTH Intact Urine WBC (Auto) Urine Creatinine Salicylates Acetaminophen Crossmatch 03/27/19 03/27/19 03/27/19 12:37 14:15 14:15 WBC RBC Hgb 9.7 L Hct 29.5 L RDW Plt Count 87 L Seg Neuts % (Manual) Lymphocytes % (Manual) Monocytes % (Manual) Nucleated RBC % Seg Neutrophils # Seg Neutrophils # Man Lymphocytes # (Manual) Monocytes # (Manual) PT 15.9 H INR 1.30 H Heparin Anti-Xa Level POC ABG pH ABG pH POC ABG pCO2 POC ABG pO2 ABG pO2 ABG HCO3 ABG O2 Saturation ABG Base Excess ABG Hemoglobin Oxyhemoglobin Sodium Potassium Chloride Carbon Dioxide BUN Creatinine Glucose POC Glucose 129 H Lactic Acid Calcium Phosphorus Magnesium Total Bilirubin Direct Bilirubin AST ALT Alkaline Phosphatase Total Creatine Kinase CK-MB (CK-2) Troponin T C-Reactive Protein Total Protein Albumin Triglycerides LDL Cholesterol Direct HDL Cholesterol Free T4 PTH Intact Urine WBC (Auto) Urine Creatinine Salicylates Acetaminophen Crossmatch 03/27/19 03/27/19 03/27/19 19:22 19:23 22:10 WBC RBC Hgb Hct RDW Plt Count Seg Neuts % (Manual) Lymphocytes % (Manual) Monocytes % (Manual) Nucleated RBC % Seg Neutrophils # Seg Neutrophils # Man Lymphocytes # (Manual) Monocytes # (Manual) PT INR Heparin Anti-Xa Level < 0.10 L POC ABG pH ABG pH POC ABG pCO2 POC ABG pO2 ABG pO2 ABG HCO3 ABG O2 Saturation ABG Base Excess ABG Hemoglobin Oxyhemoglobin Sodium Potassium Chloride Carbon Dioxide BUN Creatinine Glucose POC Glucose 113 H Lactic Acid Calcium Phosphorus Magnesium Total Bilirubin Direct Bilirubin AST ALT Alkaline Phosphatase Total Creatine Kinase 4517 H CK-MB (CK-2) Troponin T C-Reactive Protein Total Protein Albumin Triglycerides LDL Cholesterol Direct HDL Cholesterol Free T4 PTH Intact Urine WBC (Auto) Urine Creatinine Salicylates Acetaminophen Crossmatch 03/27/19 03/28/19 03/28/19 23:52 03:49 05:13 WBC RBC Hgb Hct RDW Plt Count Seg Neuts % (Manual) Lymphocytes % (Manual) Monocytes % (Manual) Nucleated RBC % Seg Neutrophils # Seg Neutrophils # Man Lymphocytes # (Manual) Monocytes # (Manual) PT INR Heparin Anti-Xa Level 0.23 L POC ABG pH 7.338 L ABG pH POC ABG pCO2 33.1 L POC ABG pO2 ABG pO2 ABG HCO3 ABG O2 Saturation ABG Base Excess ABG Hemoglobin Oxyhemoglobin Sodium Potassium Chloride Carbon Dioxide BUN Creatinine Glucose POC Glucose 117 H Lactic Acid Calcium Phosphorus Magnesium Total Bilirubin Direct Bilirubin AST ALT Alkaline Phosphatase Total Creatine Kinase CK-MB (CK-2) Troponin T C-Reactive Protein Total Protein Albumin Triglycerides LDL Cholesterol Direct HDL Cholesterol Free T4 PTH Intact Urine WBC (Auto) Urine Creatinine Salicylates Acetaminophen Crossmatch 03/28/19 03/28/19 03/28/19 05:13 06:18 08:25 WBC RBC Hgb 4.9 L* D Hct 15.4 L* D RDW Plt Count Seg Neuts % (Manual) Lymphocytes % (Manual) Monocytes % (Manual) Nucleated RBC % Seg Neutrophils # Seg Neutrophils # Man Lymphocytes # (Manual) Monocytes # (Manual) PT INR Heparin Anti-Xa Level POC ABG pH ABG pH POC ABG pCO2 POC ABG pO2 ABG pO2 ABG HCO3 ABG O2 Saturation ABG Base Excess ABG Hemoglobin Oxyhemoglobin Sodium 135 L Potassium 5.5 H D Chloride 95.1 L Carbon Dioxide 16 L D BUN 129 H Creatinine 9.3 H Glucose 158 H POC Glucose 202 H Lactic Acid Calcium 4.0 L* D Phosphorus 12.40 H Magnesium Total Bilirubin Direct Bilirubin AST ALT Alkaline Phosphatase Total Creatine Kinase 4266 H CK-MB (CK-2) Troponin T C-Reactive Protein Total Protein Albumin Triglycerides LDL Cholesterol Direct HDL Cholesterol Free T4 PTH Intact Urine WBC (Auto) Urine Creatinine Salicylates Acetaminophen Crossmatch 03/28/19 10:00 WBC RBC Hgb Hct RDW Plt Count Seg Neuts % (Manual) Lymphocytes % (Manual) Monocytes % (Manual) Nucleated RBC % Seg Neutrophils # Seg Neutrophils # Man Lymphocytes # (Manual) Monocytes # (Manual) PT INR Heparin Anti-Xa Level POC ABG pH ABG pH POC ABG pCO2 POC ABG pO2 ABG pO2 ABG HCO3 ABG O2 Saturation ABG Base Excess ABG Hemoglobin Oxyhemoglobin Sodium Potassium Chloride Carbon Dioxide BUN Creatinine Glucose POC Glucose Lactic Acid Calcium Phosphorus Magnesium Total Bilirubin Direct Bilirubin AST ALT Alkaline Phosphatase Total Creatine Kinase CK-MB (CK-2) Troponin T C-Reactive Protein Total Protein Albumin Triglycerides LDL Cholesterol Direct HDL Cholesterol Free T4 PTH Intact Urine WBC (Auto) Urine Creatinine Salicylates Acetaminophen Crossmatch See Detail Chest x-ray: image reviewed Allied health notes reviewed: RT
--- NOTE | 2019-03-28 11:13 | Progress Note ---
Assessment and Plan Cultures: 03/16/2019 sputum: salivary contamination 03/16/2019 Blood culture: no growth 03/17/2019 Urine culture no growth 03/17/2019 throat culture: no growth 03/26/2019 Blood culture: no growth so far Assessment: 43y/o male with possible psych history admitted on 03/16/2019 with: 1) Septic shock: back on pressors due to acute GI bleed and severe Hg drop at 4.4. Noted fever 105 last night after right IJ exchanged overwire, still leukocytosis at 19. Fever source is unclear - suspect IJ DVT ?thrombophlebitis, other ?NMS ?sinusitis, ?drug fever. Repeat blood culture no growth so far. Br ain MRI shows no acute intracranial abnormality, mild nonspecific chronic white matter changes, fluid throughout the sinuses and mastoid air cells. Venous US + right IJ DVT. Initial septic shock - Possible Infectious etiology v/s possibility of Neuroleptic Malignant Syndrome given psych history, high fever of 105F and extremely elevated CPK of >100K. Unclear if he was on any psych med. From ID standpoint, we will continue broad coverage for acute bacterial meningitis, tick borne illness, aspiration pneumonia. Blood culture negative UA with mild pyuria. HIV rapid negative. Strep A rapid ag negative. No obvious infectious source identified yet. 2) Probable aspiration pneumonia: Already completed adequate abx. 3) Acute respiratory failure: on the vent. Improving. 4) ?Right axillary edema: no abscess, US no collection seen 5) Acute encephalopathy: improving. CT head showed diffuse cerebral edema ?artifact. But too unstable for LP at this time. Low suspicion for HSV mening oencephalitis given the degree of his initial shock and clinical status. Given nationwide acyclovir shortage and low suspicion, would not recommend IV Ganciclovir at this time. 6) Acute renal failure: renally dosing all abx, now on HD 7) Elevated LFTs/shock liver: also likely elevated from Rhabdomyolysis. Viral hepatitis panel negative. LFTs continue to improve. 8) Thrombocytopenia: multifactorial - some better 9) Rhabdomyolysis: CK continues to improve 10) ?Enteritis: per CT ? no collection no perforation no obvious ischemic bowel. Gen. Surg following Recommendations: GI med consult add fluconazole and vancomycin continue cefepime avoid drugs that can cause NMS Vascular on board F/u Blood culture x 2 sets LP awaited due to low platelets Risk for aspiration pneumonia Discussed with nursing staff and Dr Loo Will follow. Risa Bryant MD Infectious Diseases [employer] [employer] [facility] ([facility]) M [phone] O [phone] Subjective Date of service: 03/28/19 Principal diagnosis: Septic Shock; Ac. hypoxemic resp failure; Renzo. PNA; Rhabdomyolysis; RUBEN Interval history: Remains now on pressors x 2 due to acute GI bleed, intubated on sedation, noted fever 105 after IJ cath exchaged last night. Objective - Exam Narrative Exam: General appearance: sedated intubated opening eyes Eyes: pupils renzo contracted poorly reactive, no jaundice HENT: Atraumatic; oropharynx with ETT/OGT +copious red blood pouring out Neck: no JVD Lungs:distant BS CV: RRR Abdomen: Soft, non-tender; no masses or hepatosplenomegaly Extremities: renzo leg edema/arm edema, +right axillar soft tissue mass non tender Skin:no rash, +scrotal edema Psych: sedated. Neuro: sedated Right IJ cath - Constitutional Vitals: Vital Signs Temp Pulse Resp BP Pulse Ox 98.8 F 77 17 101/62 100 03/28/19 10:22 03/28/19 10:30 03/28/19 10:30 03/28/19 10:30 03/28/19 10:30 Temperature -Last 24 Hours Temperature 98.8 F Temperature 97.7 F Temperature 99.4 F Temperature 102.5 F Temperature 102.5 F Temperature 103.1 F Temperature 105.3 F Temperature 102.9 F - Labs CBC & Chem 7: 03/28/19 08:25 03/28/19 05:13 Labs: Abnormal lab results 03/27/19 03/27/19 03/27/19 Range/Units 12:37 14:15 14:15 Hgb 9.7 L (11.8-15.2) gm/dl Hct 29.5 L (35.5-45.6) % Plt Count 87 L (140-440) K/mm3 PT 15.9 H (12.2-14.9) Sec. INR 1.30 H (0.87-1.13) Heparin Anti-Xa Level (0.3-0.7) U.I./ml POC ABG pH (7.35-7.45) POC ABG pCO2 (35-45) Sodium (137-145) mmol/L Potassium (3.6-5.0) mmol/L Chloride (98-107) mmol/L Carbon Dioxide (22-30) mmol/L BUN (9-20) mg/dL Creatinine (0.8-1.5) mg/dL Glucose (75-100) mg/dL POC Glucose 129 H (70-105) Calcium (8.4-10.2) mg/dL Phosphorus (2.5-4.5) mg/dL Total Creatine Kinase (55-170) units/L Crossmatch 03/27/19 03/27/19 03/27/19 Range/Units 19:22 19:23 22:10 Hgb (11.8-15.2) gm/dl Hct (35.5-45.6) % Plt Count (140-440) K/mm3 PT (12.2-14.9) Sec. INR (0.87-1.13) Heparin Anti-Xa Level < 0.10 L (0.3-0.7) U.I./ml POC ABG pH (7.35-7.45) POC ABG pCO2 (35-45) Sodium (137-145) mmol/L Potassium (3.6-5.0) mmol/L Chloride (98-107) mmol/L Carbon Dioxide (22-30) mmol/L BUN (9-20) mg/dL Creatinine (0.8-1.5) mg/dL Glucose (75-100) mg/dL POC Glucose 113 H (70-105) Calcium (8.4-10.2) mg/dL Phosphorus (2.5-4.5) mg/dL Total Creatine Kinase 4517 H (55-170) units/L Crossmatch 03/27/19 03/28/19 03/28/19 Range/Units 23:52 03:49 05:13 Hgb (11.8-15.2) gm/dl Hct (35.5-45.6) % Plt Count (140-440) K/mm3 PT (12.2-14.9) Sec. INR (0.87-1.13) Heparin Anti-Xa Level 0.23 L (0.3-0.7) U.I./ml POC ABG pH 7.338 L (7.35-7.45) POC ABG pCO2 33.1 L (35-45) Sodium (137-145) mmol/L Potassium (3.6-5.0) mmol/L Chloride (98-107) mmol/L Carbon Dioxide (22-30) mmol/L BUN (9-20) mg/dL Creatinine (0.8-1.5) mg/dL Glucose (75-100) mg/dL POC Glucose 117 H (70-105) Calcium (8.4-10.2) mg/dL Phosphorus (2.5-4.5) mg/dL Total Creatine Kinase (55-170) units/L Crossmatch 03/28/19 03/28/19 03/28/19 Range/Units 05:13 06:18 08:25 Hgb 4.9 L* D (11.8-15.2) gm/dl Hct 15.4 L* D (35.5-45.6) % Plt Count (140-440) K/mm3 PT (12.2-14.9) Sec. INR (0.87-1.13) Heparin Anti-Xa Level (0.3-0.7) U.I./ml POC ABG pH (7.35-7.45) POC ABG pCO2 (35-45) Sodium 135 L (137-145) mmol/L Potassium 5.5 H D (3.6-5.0) mmol/L Chloride 95.1 L (98-107) mmol/L Carbon Dioxide 16 L D (22-30) mmol/L BUN 129 H (9-20) mg/dL Creatinine 9.3 H (0.8-1.5) mg/dL Glucose 158 H (75-100) mg/dL POC Glucose 202 H (70-105) Calcium 4.0 L* D (8.4-10.2) mg/dL Phosphorus 12.40 H (2.5-4.5) mg/dL Total Creatine Kinase 4266 H (55-170) units/L Crossmatch 03/28/19 Range/Units 10:00 Hgb (11.8-15.2) gm/dl Hct (35.5-45.6) % Plt Count (140-440) K/mm3 PT (12.2-14.9) Sec. INR (0.87-1.13) Heparin Anti-Xa Level (0.3-0.7) U.I./ml POC ABG pH (7.35-7.45) POC ABG pCO2 (35-45) Sodium (137-145) mmol/L Potassium (3.6-5.0) mmol/L Chloride (98-107) mmol/L Carbon Dioxide (22-30) mmol/L BUN (9-20) mg/dL Creatinine (0.8-1.5) mg/dL Glucose (75-100) mg/dL POC Glucose (70-105) Calcium (8.4-10.2) mg/dL Phosphorus (2.5-4.5) mg/dL Total Creatine Kinase (55-170) units/L Crossmatch See Detail
--- NOTE | 2019-03-28 11:26 | Gastroenterology Consultation ---
History of Present Illness - Reason for Consult Consult date: 03/28/19 GI bleed Requesting physician: MARY MOSQUEDA - History of Present Illness Patient is a 43 y/o male with unknown medical history (possibly hx of psych disorder) who was brought to ED for AMS on 03/16/19. He is currently in ICU on vent and pressor support s/p cardiopulmonary arrest with being treated for septic shock (unclear etiology; ID following), acute respiratory failure/probable aspiration pneumonia, Afib RVR, encephalopathy, acute renal failure, thrombocytopenia, rhabdomyolysis, shock liver, and enteritis seen on CT. He was placed on a heparin drip yesterday for a nonocclusive thrombus in right internal jugular vein, then developed GI bleeding overnight with significant drop in H/H to which GI has been consulted. Heparin drip now d/c. Nursing reports continued dark bloody stool this am with clots, along with vomiting of copious amount of bright red blood with clots. Prior GI history unknown (patient unable to provide history; history obtained via chart review). Past History Past Medical History: other (Unable to obtain ) Past Surgical History: Other (Unable to obtain ) Social history: other (Reside with a friend) Family history: other (unknown) Medications and Allergies Allergies Allergy/AdvReac Type Severity Reaction Status Date / Time No Known Allergies Allergy Unverified 03/16/19 17:17 Home Medications Medication Instructions Recorded Confirmed Last Taken Type Unobtainable 03/18/19 03/18/19 Unknown History Active Meds: Active Medications Acetaminophen (Tylenol) 650 mg PO Q4H PRN PRN Reason: Pain, Mild (1-3), .5> Last Admin: 03/27/19 21:23 Dose: 650 mg Documented by: Albuterol/Ipratropium (Duoneb *Not For Prn Use*) 1 ampul IH Q4HRT [facility] Last Admin: 03/28/19 07:39 Dose: 1 ampul Documented by: Lipase/Protease/Amylase (Sanjay Purcell 10,500 Unit) 1 each FEEDTUBE PRN PRN PRN Reason: For Clogged Feeding Tube Calcitriol (Rocaltrol) 0.5 mcg PO QDAY [facility] Last Admin: 03/27/19 09:56 Dose: 0.5 mcg Documented by: Dextrose (D50w (25gm) Vial) 50 gm IV PRN PRN PRN Reason: Hypoglycemia Last Admin: 03/26/19 23:26 Dose: 50 gm Documented by: Fentanyl (Sublimaze) 50 mcg IV Q1H PRN PRN Reason: Pain, Moderate (4-6) Last Admin: 03/27/19 13:47 Dose: 50 mcg Documented by: Hydrophilic Ointment (Vaseline Lip Therapy) 1 applic TP Q2HR PRN PRN Reason: Dry Lips Phenylephrine HCl 100 mg/ (Sodium Chloride) 100 mls @ 3 mls/hr IV TITR PAOLO; Protocol Last Titration: 03/19/19 18:48 Dose: Infused Documented by: Sodium Chloride (Nacl 0.9%) 100 mls @ 999 mls/hr IV NEYMAR PRN PRN Reason: Hypotension Fentanyl Citrate (Fentanyl Drip Premix) 2,000 mcg in 100 mls @ 7.85 mls/hr IV TITR PAOLO; Protocol Last Admin: 03/28/19 06:14 Dose: 1 mcg/kg/hr, 7.85 mls/hr Documented by: Cefepime HCl (Maxipime/Ns 2 Gm/100 Ml) 2 gm in 100 mls @ 200 mls/hr IV Q24H PAOLO; Protocol Last Admin: 03/27/19 14:36 Dose: 200 mls/hr Documented by: Norepinephrine (Levophed Drip 4 Mg/Ns 250 Ml) 4 mg in 250 mls @ 7.5 mls/hr IV TITR PAOLO; Protocol Last Admin: 03/28/19 10:52 Dose: 16 mcg/min, 60 mls/hr Documented by: Pantoprazole Sodium 80 mg/ (Sodium Chloride) 100 mls @ 10 mls/hr IV DIRECT PAOLO Last Admin: 03/28/19 09:30 Dose: 8 mg/hr, 10 mls/hr Documented by: Vasopressin 20 unit/ Sodium (Chloride) 101 mls @ 9.09 mls/hr IV TITR PAOLO; Protocol Last Admin: 03/28/19 09:00 Dose: 0.03 units/min, 9.09 mls/hr Documented by: Fluconazole (Diflucan) 200 mg in 100 mls @ 100 mls/hr IV Q24HR PAOLO; Protocol Last Admin: 03/28/19 10:30 Dose: 100 mls/hr Documented by: Sodium Chloride (Nacl 0.9%) 100 mls @ 999 mls/hr IV NEYMAR PRN PRN Reason: Hypotension Lorazepam (Ativan) 2 mg IV Q1H PRN PRN Reason: Agitation Last Admin: 03/27/19 02:44 Dose: 2 mg Documented by: Metoprolol Tartrate (Lopressor) 25 mg PO TID PAOLO Multi-Ingred Cream/Lotion/Oil/Oint (Artificial Tears Ophth Oint) 1 applic OU Q4HR PRN PRN Reason: Dry Eye(s) Last Admin: 03/19/19 20:10 Dose: 1 applic Documented by: Ondansetron HCl (Zofran) 4 mg IV Q8H PRN PRN Reason: Nausea And Vomiting Simple Syrup (Simple Syrup) 15 ml FEEDTUBE PRN PRN PRN Reason: Hypoglycemia Last Admin: 03/26/19 23:19 Dose: 15 ml Documented by: Simple Syrup (Simple Syrup) 30 ml FEEDTUBE PRN PRN PRN Reason: Hypoglycemia Sodium Bicarbonate (Sodium Bicarbonate) 325 mg FEEDTUBE PRN PRN PRN Reason: For Clogged Feeding Tube medications reviewed/updated as required Review of Systems - Review of Systems ROS unobtainable: due to endotracheal tube Exam - Constitutional Vital Signs: Temp Pulse Resp BP Pulse Ox 98.8 F 77 17 101/62 100 03/28/19 10:22 03/28/19 10:30 03/28/19 10:30 03/28/19 10:30 03/28/19 10:30 General appearance: other (critically ill in ICU on vent and pressor support) - EENT ENT: other (+ETT, +OGT (+ bright red blood)) - Respiratory Respiratory: bilateral: diminished - Cardiovascular Rhythm: regular - Gastrointestinal General gastrointestinal: Present: soft, non-distended, normal bowel sounds Rectal Exam: other (large amount dark maroon bloody stool w/ clots noted under patient/bed pad upon exam) - Musculoskeletal Musculoskeletal: other (+edema) - Neurologic Neurological: other (unable to assess) - Labs CBC & Chem 7: 03/28/19 12:28 03/28/19 05:13 Lab Results: Laboratory Results - last 24 hr 03/27/19 03/27/19 03/27/19 12:37 14:15 14:15 Hgb 9.7 L Hct 29.5 L Plt Count 87 L PT 15.9 H INR 1.30 H APTT 27.6 Heparin Anti-Xa Level POC ABG pH POC ABG pCO2 POC ABG pO2 POC ABG HCO3 POC ABG Total CO2 POC ABG O2 Sat POC ABG Base Excess FiO2 Sodium Potassium Chloride Carbon Dioxide Anion Gap BUN Creatinine Estimated GFR BUN/Creatinine Ratio Glucose POC Glucose 129 H Calcium Phosphorus Total Creatine Kinase Procalcitonin Blood Type Antibody Screen Crossmatch 03/27/19 03/27/19 03/27/19 19:21 19:22 19:23 Hgb Hct Plt Count PT INR APTT Heparin Anti-Xa Level < 0.10 L POC ABG pH POC ABG pCO2 POC ABG pO2 POC ABG HCO3 POC ABG Total CO2 POC ABG O2 Sat POC ABG Base Excess FiO2 Sodium Potassium Chloride Carbon Dioxide Anion Gap BUN Creatinine Estimated GFR BUN/Creatinine Ratio Glucose POC Glucose Calcium Phosphorus Total Creatine Kinase 4517 H Procalcitonin 25.42 Blood Type Antibody Screen Crossmatch 03/27/19 03/27/19 03/28/19 22:10 23:52 03:49 Hgb Hct Plt Count PT INR APTT Heparin Anti-Xa Level POC ABG pH 7.338 L POC ABG pCO2 33.1 L POC ABG pO2 92 POC ABG HCO3 17.8 POC ABG Total CO2 19 POC ABG O2 Sat 97 POC ABG Base Excess -8 FiO2 35 Sodium Potassium Chloride Carbon Dioxide Anion Gap BUN Creatinine Estimated GFR BUN/Creatinine Ratio Glucose POC Glucose 113 H 117 H Calcium Phosphorus Total Creatine Kinase Procalcitonin Blood Type Antibody Screen Crossmatch 03/28/19 03/28/19 03/28/19 05:13 05:13 06:18 Hgb Hct Plt Count PT INR APTT Heparin Anti-Xa Level 0.23 L POC ABG pH POC ABG pCO2 POC ABG pO2 POC ABG HCO3 POC ABG Total CO2 POC ABG O2 Sat POC ABG Base Excess FiO2 Sodium 135 L Potassium 5.5 H D Chloride 95.1 L Carbon Dioxide 16 L D Anion Gap 29 BUN 129 H Creatinine 9.3 H Estimated GFR 7 BUN/Creatinine Ratio 14 Glucose 158 H POC Glucose 202 H Calcium 4.0 L* D Phosphorus 12.40 H Total Creatine Kinase 4266 H Procalcitonin Blood Type Antibody Screen Crossmatch 03/28/19 03/28/19 08:25 10:00 Hgb 4.9 L* D Hct 15.4 L* D Plt Count PT INR APTT Heparin Anti-Xa Level POC ABG pH POC ABG pCO2 POC ABG pO2 POC ABG HCO3 POC ABG Total CO2 POC ABG O2 Sat POC ABG Base Excess FiO2 Sodium Potassium Chloride Carbon Dioxide Anion Gap BUN Creatinine Estimated GFR BUN/Creatinine Ratio Glucose POC Glucose Calcium Phosphorus Total Creatine Kinase Procalcitonin Blood Type A POSITIVE Antibody Screen Negative Crossmatch See Detail Assessment and Plan 1.GI bleed -H/H 4.9/15.4-significant drop- PRBCs currently transfusing (2 more units pending) -continue to monitor H/H and transfuse as needed -patient with bright red bloody emesis and noted dark maroon bloody stool w/ clots this am- bleeding develop overnight after being started on heparin drip yesterday for nonocclusive thrombus in right internal jugular vein -hold blood thinning medications (heparin now d/c) -etiology unclear -clinically, patient is currently critically ill in ICU on vent and pressor support s/p cardiopulmonary arrest with multi-organ failure -will order stat labs to r/o DIC -bleeding scan for further evaluation of bleeding once stable -consider EGD today once H/H improved -Keep NPO -continue protonix drip -continue supportive care -will follow
[2019-03-28 12:53] LABS: Hemoglobin 5.9 gm/dl (11.8-15.2)
[2019-03-28 12:55] LABS: Hematocrit 18.3 % (35.5-45.6)
[2019-03-28 12:59] LABS: INR 1.52 (0.87-1.13)
[2019-03-28 13:00] LABS: Partial Thromboplastin Time 26.6 Sec. (24.2-36.6)
[2019-03-28] MEDS ORDERED: PROTAMINE SULFATE 50 MG/5 ML INJ IV ONE (13:00)
[2019-03-28] MEDS: CEFEPIME/NS 2 GM/100 ML 2 GM/100 ML BAG IV SCH (14:30)
[2019-03-28] MEDS: AMIODARONE 900 MG in DEXTROSE 5% IN WATER 482 ML IV SCH (17:00)
[2019-03-28] MEDS ORDERED: AMIODARONE 150 MG in DEXTROSE 5% IN WATER 97 ML IV ONE (17:00)
[2019-03-28 18:16] LABS: Hematocrit 31.1 % (35.5-45.6); Hemoglobin 10.2 gm/dl (11.8-15.2); Mean Corpuscular HGB Conc 33 % (32-34); Mean Corpuscular Volume 91 fl (84-94); Red Blood Count 3.42 M/mm3 (3.65-5.03); Red Cell Distribution Width 15.4 % (13.2-15.2)
[2019-03-28 18:22] LABS: Platelet Count 54 K/mm3 (140-440)
[2019-03-28 18:53] LABS: Basophils % (Manual) 0 % (0.0-1.8); Eosinophils % (Manual) 0 % (0.0-4.3); Total Cells Counted 100
[2019-03-28 18:55] LABS: Anisocytosis Few; Platelet Estimate Appears Decreased
[2019-03-28] MEDS ORDERED: METOCLOPRAMIDE 10 MG/2 ML INJ IV ONE (19:00)
[2019-03-28] MEDS ORDERED: ROCURONIUM 50 MG/5 ML INJ IV ONE (20:11)
[2019-03-28] MEDS ORDERED: MIDAZOLAM 5 MG/5 ML INJ MDV IV ONE (20:11)
[2019-03-28] MEDS ORDERED: SODIUM CHLORIDE 0.9% 1000 ML 1,000 ML ONE (20:22)
[2019-03-28] MEDS: QUEtiapine 25 MG TAB PO SCH (20:46)
--- NOTE | 2019-03-28 20:56 | Anesthesia Consultation ---
Anesthesia Consult and Med Hx Date of service: 03/28/19 - Airway Intubation Access Assessment: Possibly Difficult (oETT in situ) - Pulmonary Exam CTA: Yes - Cardiac Exam Cardiac Exam: RRR - Pre-Operative Health Status ASA Pre-Surgery Classification: ASA4, Emergency Proposed Anesthetic Plan: General - Pulmonary Hx Respiratory Symptoms: Yes (respiratory failure on mechanical ventilation) Hx Pneumonia: Yes (this admission) - Cardiovascular System Hx Cardia Arrhythmia: Yes (cardiac arrest this admission; afib on amiodarone gtt) Hx Pacemaker: No Hx Internal Defibrillator: No - Central Nervous System Hx Neuromuscular Disorder: Yes (rhabdomyolysis) Hx Psychiatric Problems: Yes (altered mental status on admission) - Endocrine Hx Renal Disease: Yes (acute renal failure on HD; last HD today) Hx Liver Disease: Yes (shock liver) - Hematic Hx Anemia: Yes (acute blood loss anemia presumably 2/2 GI bleed) - Other Systems Hx Obesity: Yes (BMI 47) - Additional Comments Anesthesia Medical History Comments: Presented >1 week ago with altered mental status and septic shock with hospital course complicated by cardiac arrest, respiratory failure, a-fib, acute renal failure on HD, shock liver, enteritis now with hematemesis scheduled for EGD. Initially HD unstable but improved after pRBC transfusion and HD. Current gtts: levophed 2mcg/min, fentanyl 1mcg/kg/hr, amiodarone 1mg/min. Vent: 500x25, FiO2 35%, Peep 6. Phone consent obtained from brother Jean Caballero [phone].
--- NOTE | 2019-03-28 20:57 | Anesthesia Day of Surgery ---
Anesthesia Day of Surgery - Day of Surgery Patient Examined: Yes Patient H&P Reviewed: Yes Patient is NPO: Yes
--- NOTE | 2019-03-28 20:58 | Post Anesthesia Evaluation ---
- Post Anesthesia Evaluation Patient Participated: No (sedated) Airway Patent: Yes Stable Respiratory Function: Yes Nausea/Vomiting: No Temp > 96.8F: Yes Pain Manageable: Yes Adequeate Hydration: Yes Anesthesia Complications: No Block Receding Appropriately: Not Applicable Patient on Ventilator: Yes (FiO2 100% during procedure; otherwise unchanged vent settings) Other Comments: Norepi gtt 3mcg/min with MAP at pre-procedure baseline. Amiodarone and fentanyl gtt unchanged. Paralytic not reversed; RT and RN aware.
--- NOTE | 2019-03-28 21:02 | Operative Report ---
Operative Report Operative Report: DOS: 03/28/2019 Endoscopist: Keith Rojas MD EGD REPORT PREOPERATIVE DIAGNOSIS and POSTOPERATIVE DIAGNOSIS: GI bleed ESTIMATED BLOOD LOSS: minimal DESCRIPTION OF PROCEDURE: A high-resolution EGD scope was passed through the oropharynx, esophagus, stomach. The scope was carefully withdrawn. Retroflexion was performed in the stomach. At the end of the procedure, the scope was cleaned using normal technique. Vital signs monitored continuously throughout. SEDATION: Provided by Anesthesiology Services. COMPLICATIONS: None. FINDINGS: There was a large pool of dark blood with clots. Multiple attempts were made to clear out with blood with irrigation and suctioning but unable to completely cl ear out the blood. Incomplete visualization of the cardia and fundus as well as antrum. Could not advance the scope to the duodenum due to a pool of blood in the antrum precluding visualization. No obvious areas of active bleeding with fresh blood. GE junction at around 40 cm from the incisors. The exam of the esophagus showed dark blood with clots, which likely refluxed up from the stomach. No obvious signs of esophageal varices or ulcers noted. RECOMMENDATIONS: 1. Continue with PPI drip. 2. Monitor H/H every 4-6 hrs. 3. Supportive care. 4. In case of signs of recurrent active bleeding with drop in H/H, will plan for repeat EGD. 5. Hold off anticoagulation. 6. Family updated on the phone.
--- NOTE | 2019-03-28 21:22 | XRay Report ---
ABDOMEN AP PORTABLE SUPINE 2058 INDICATION: ngt placement confirmation (NURSE TO CALL WHEN READY.) COMPARISON: None available. FINDINGS: Nasogastric tube extends well into the stomach showing gaseous distention Signer Name: Chencho Kam MD Signed: 03/28/2019 9:18 PM Workstation Name: [id number]
[2019-03-29] MEDS: fentaNYL DRIP Premix 2,000 MCG/100 ML BAG IV SCH ×5 (00:28→23:34)
[2019-03-29] MEDS: IPRATROPIUM/ALBUTEROL SULFATE 3 ML AMPUL.NEB IH SCH ×4 (00:34→11:27)
[2019-03-29 06:31] LABS: Hematocrit 25.7 % (35.5-45.6); Hemoglobin 8.6 gm/dl (11.8-15.2)
[2019-03-29 07:11] LABS: Hematocrit 25.8 % (35.5-45.6); Hemoglobin 8.6 gm/dl (11.8-15.2); Mean Corpuscular HGB Conc 33 % (32-34); Mean Corpuscular Volume 89 fl (84-94); Red Blood Count 2.91 M/mm3 (3.65-5.03); Red Cell Distribution Width 15.1 % (13.2-15.2)
--- NOTE | 2019-03-29 07:18 | Hem/Onc Progress Note ---
Assessment and Plan 1. Anemia. The patient has history of bleeding. 2. Internal jugular partial thrombosis. The patient was started on heparin. This has been held. 3. Gastrointestinal bleed. 4. Elevated creatinine kinase. 5. Low calcium. 6. Thrombocytopenia. 7. Renal failure. 8. Intubation. 9. Transfusion support. 10. Leukocytosis. At this time, supportive care may help the patient. The patient's platelet has been low since admission. Urine toxicology was negative. awake - follows command - on vent off anticoagulation d/w Min GI - Patient Problems (1) DVT (deep venous thrombosis) Current Visit: Yes Status: Acute Subjective Date of service: 03/29/19 Principal diagnosis: DVT - anemia Interval history: awake - follows commands Objective - Exam Narrative Exam: Pain - intubated General appearance - awake - on vent Performance status complete dependence Eyes - no icterus ENT - some oropharyngeal bleeding LNs cervical not palpable Neck - no LN Respiratory Normal Breath sounds - CTA anteriorly CVS S1 S2 + Extremities edema + General GI Soft Rectal deferred male - deferred Skin warm Musculoskeletal moving rt toes Neurologically awake - nods to questions - Constitutional Vitals: Last Vital Signs Temp 99.0 F 03/29/19 04:00 Pulse 90 03/29/19 06:30 Resp 16 03/29/19 06:30 BP 125/52 03/29/19 06:30 Pulse Ox 95 03/29/19 06:30 - Labs Lab Results: Laboratory Results - last 24 hr 03/27/19 03/27/19 03/28/19 18:00 19:21 05:13 WBC RBC Hgb Hct MCV MCH MCHC RDW Plt Count Add Manual Diff Total Counted Seg Neuts % (Manual) Band Neutrophils % Lymphocytes % (Manual) Reactive Lymphs % (Man) Monocytes % (Manual) Eosinophils % (Manual) Basophils % (Manual) Metamyelocytes % Myelocytes % Promyelocytes % Blast Cells % Nucleated RBC % Seg Neutrophils # Man Band Neutrophils # Lymphocytes # (Manual) Abs React Lymphs (Man) Monocytes # (Manual) Eosinophils # (Manual) Basophils # (Manual) Metamyelocytes # Myelocytes # Promyelocytes # Blast Cells # WBC Morphology Hypersegmented Neuts Hyposegmented Neuts Hypogranular Neuts Smudge Cells Toxic Granulation Toxic Vacuolation Dohle Bodies Pelger-Huet Anomaly Joyce Rods Platelet Estimate Clumped Platelets Plt Clumps, EDTA Large Platelets Giant Platelets Platelet Satelliting Plt Morphology Comment RBC Morphology Dimorphic RBCs Polychromasia Hypochromasia Poikilocytosis Anisocytosis Microcytosis Macrocytosis Spherocytes Pappenheimer Bodies Sickle Cells Target Cells Tear Drop Cells Ovalocytes Helmet Cells [place]ie Bodies [place]y Rings Kellogg Cells Bite Cells Crenated Cell Elliptocytes Acanthocytes (Spur) Rouleaux Hemoglobin C Crystals Schistocytes Malaria parasites Phil Bodies Hem Pathologist Commnt PT INR APTT Fibrinogen D-Dimer POC ABG pH POC ABG pCO2 POC ABG pO2 POC ABG HCO3 POC ABG Total CO2 POC ABG O2 Sat POC ABG Base Excess FiO2 Sodium 135 L Potassium 5.5 H D Chloride 95.1 L Carbon Dioxide 16 L D Anion Gap 29 BUN 129 H Creatinine 9.3 H Estimated GFR 7 BUN/Creatinine Ratio 14 Glucose 158 H POC Glucose 121 H Calcium 4.0 L* D Phosphorus 12.40 H Total Creatine Kinase 4266 H Triglycerides Procalcitonin 25.42 Blood Type Antibody Screen Crossmatch 03/28/19 03/28/19 03/28/19 08:25 10:00 12:00 WBC RBC Hgb 4.9 L* D Hct 15.4 L* D MCV MCH MCHC RDW Plt Count Add Manual Diff Total Counted Seg Neuts % (Manual) Band Neutrophils % Lymphocytes % (Manual) Reactive Lymphs % (Man) Monocytes % (Manual) Eosinophils % (Manual) Basophils % (Manual) Metamyelocytes % Myelocytes % Promyelocytes % Blast Cells % Nucleated RBC % Seg Neutrophils # Man Band Neutrophils # Lymphocytes # (Manual) Abs React Lymphs (Man) Monocytes # (Manual) Eosinophils # (Manual) Basophils # (Manual) Metamyelocytes # Myelocytes # Promyelocytes # Blast Cells # WBC Morphology Hypersegmented Neuts Hyposegmented Neuts Hypogranular Neuts Smudge Cells Toxic Granulation Toxic Vacuolation Dohle Bodies Pelger-Huet Anomaly Joyce Rods Platelet Estimate Clumped Platelets Plt Clumps, EDTA Large Platelets Giant Platelets Platelet Satelliting Plt Morphology Comment RBC Morphology Dimorphic RBCs Polychromasia Hypochromasia Poikilocytosis Anisocytosis Microcytosis Macrocytosis Spherocytes Pappenheimer Bodies Sickle Cells Target Cells Tear Drop Cells Ovalocytes Helmet Cells [place]ha-[place] Bodies [place] Rings Samantha Cells Bite Cells Crenated Cell Elliptocytes Acanthocytes (Spur) Rouleaux Hemoglobin C Crystals Schistocytes Malaria parasites Phil Bodies Hem Pathologist Commnt PT 17.9 H INR 1.52 H APTT 26.6 Fibrinogen 226 D-Dimer 4845.98 H POC ABG pH POC ABG pCO2 POC ABG pO2 POC ABG HCO3 POC ABG Total CO2 POC ABG O2 Sat POC ABG Base Excess FiO2 Sodium Potassium Chloride Carbon Dioxide Anion Gap BUN Creatinine Estimated GFR BUN/Creatinine Ratio Glucose POC Glucose Calcium Phosphorus Total Creatine Kinase Triglycerides Procalcitonin Blood Type A POSITIVE Antibody Screen Negative Crossmatch See Detail 03/28/19 03/28/19 03/28/19 12:28 14:10 17:43 WBC RBC Hgb 5.9 L* Hct 18.3 L* MCV MCH MCHC RDW Plt Count Add Manual Diff Total Counted Seg Neuts % (Manual) Band Neutrophils % Lymphocytes % (Manual) Reactive Lymphs % (Man) Monocytes % (Manual) Eosinophils % (Manual) Basophils % (Manual) Metamyelocytes % Myelocytes % Promyelocytes % Blast Cells % Nucleated RBC % Seg Neutrophils # Man Band Neutrophils # Lymphocytes # (Manual) Abs React Lymphs (Man) Monocytes # (Manual) Eosinophils # (Manual) Basophils # (Manual) Metamyelocytes # Myelocytes # Promyelocytes # Blast Cells # WBC Morphology Hypersegmented Neuts Hyposegmented Neuts Hypogranular Neuts Smudge Cells Toxic Granulation Toxic Vacuolation Dohle Bodies Pelger-Huet Anomaly Joyce Rods Platelet Estimate Clumped Platelets Plt Clumps, EDTA Large Platelets Giant Platelets Platelet Satelliting Plt Morphology Comment RBC Morphology Dimorphic RBCs Polychromasia Hypochromasia Poikilocytosis Anisocytosis Microcytosis Macrocytosis Spherocytes Pappenheimer Bodies Sickle Cells Target Cells Tear Drop Cells Ovalocytes Helmet Cells [place] Bodies [place] Rings Samantha Cells Bite Cells Crenated Cell Elliptocytes Acanthocytes (Spur) Rouleaux Hemoglobin C Crystals Schistocytes Malaria parasites Phil Bodies Hem Pathologist Commnt PT INR APTT Fibrinogen D-Dimer POC ABG pH POC ABG pCO2 POC ABG pO2 POC ABG HCO3 POC ABG Total CO2 POC ABG O2 Sat POC ABG Base Excess FiO2 Sodium Potassium Chloride Carbon Dioxide Anion Gap BUN Creatinine Estimated GFR BUN/Creatinine Ratio Glucose POC Glucose 153 H 159 H Calcium Phosphorus Total Creatine Kinase Triglycerides Procalcitonin Blood Type Antibody Screen Crossmatch 03/28/19 03/28/19 03/28/19 18:10 Unknown 23:59 WBC 24.8 H RBC 3.42 L Hgb 10.2 L D Hct 31.1 L D MCV 91 MCH 30 MCHC 33 RDW 15.4 H Plt Count 54 L Add Manual Diff Complete Total Counted 100 Seg Neuts % (Manual) 91.0 H Band Neutrophils % 0 Lymphocytes % (Manual) 8.0 L Reactive Lymphs % (Man) 0 Monocytes % (Manual) 1.0 Eosinophils % (Manual) 0 Basophils % (Manual) 0 Metamyelocytes % 0 Myelocytes % 0 Promyelocytes % 0 Blast Cells % 0 Nucleated RBC % Not Reportable Seg Neutrophils # Man 22.6 H Band Neutrophils # 0.0 Lymphocytes # (Manual) 2.0 Abs React Lymphs (Man) 0.0 Monocytes # (Manual) 0.2 Eosinophils # (Manual) 0.0 Basophils # (Manual) 0.0 Metamyelocytes # 0.0 Myelocytes # 0.0 Promyelocytes # 0.0 Blast Cells # 0.0 WBC Morphology Not Reportable Hypersegmented Neuts Not Reportable Hyposegmented Neuts Not Reportable Hypogranular Neuts Not Reportable Smudge Cells Not Reportable Toxic Granulation Not Reportable Toxic Vacuolation Not Reportable Dohle Bodies Not Reportable Pelger-Huet Anomaly Not Reportable Joyce Rods Not Reportable Platelet Estimate Appears decreased Clumped Platelets Not Reportable Plt Clumps, EDTA Not Reportable Large Platelets Not Reportable Giant Platelets Not Reportable Platelet Satelliting Not Reportable Plt Morphology Comment Not Reportable RBC Morphology Not Reportable Dimorphic RBCs Not Reportable Polychromasia Not Reportable Hypochromasia Not Reportable Poikilocytosis Not Reportable Anisocytosis Few Microcytosis Not Reportable Macrocytosis Not Reportable Spherocytes Not Reportable Pappenheimer Bodies Not Reportable Sickle Cells Not Reportable Target Cells Not Reportable Tear Drop Cells Not Reportable Ovalocytes Not Reportable Helmet Cells Not Reportable [place] Bodies Not Reportable S[place]y Rings Not Reportable Kellogg Cells Not Reportable Bite Cells Not Reportable Crenated Cell Not Reportable Elliptocytes Not Reportable Acanthocytes (Spur) Not Reportable Rouleaux Not Reportable Hemoglobin C Crystals Not Reportable Schistocytes Not Reportable Malaria parasites Not Reportable Phil Bodies Not Reportable Hem Pathologist Commnt No PT INR APTT Fibrinogen D-Dimer POC ABG pH POC ABG pCO2 POC ABG pO2 POC ABG HCO3 POC ABG Total CO2 POC ABG O2 Sat POC ABG Base Excess FiO2 Sodium Potassium 5.7 H Chloride Carbon Dioxide Anion Gap BUN Creatinine Estimated GFR BUN/Creatinine Ratio Glucose POC Glucose 107 H Calcium Phosphorus Total Creatine Kinase Triglycerides Procalcitonin Blood Type Antibody Screen Crossmatch 03/29/19 03/29/19 03/29/19 04:29 05:46 06:22 WBC RBC Hgb 8.6 L Hct 25.7 L MCV MCH MCHC RDW Plt Count 93 L Add Manual Diff Total Counted Seg Neuts % (Manual) Band Neutrophils % Lymphocytes % (Manual) Reactive Lymphs % (Man) Monocytes % (Manual) Eosinophils % (Manual) Basophils % (Manual) Metamyelocytes % Myelocytes % Promyelocytes % Blast Cells % Nucleated RBC % Seg Neutrophils # Man Band Neutrophils # Lymphocytes # (Manual) Abs React Lymphs (Man) Monocytes # (Manual) Eosinophils # (Manual) Basophils # (Manual) Metamyelocytes # Myelocytes # Promyelocytes # Blast Cells # WBC Morphology Hypersegmented Neuts Hyposegmented Neuts Hypogranular Neuts Smudge Cells Toxic Granulation Toxic Vacuolation Dohle Bodies Pelger-Huet Anomaly Joyce Rods Platelet Estimate Clumped Platelets Plt Clumps, EDTA Large Platelets Giant Platelets Platelet Satelliting Plt Morphology Comment RBC Morphology Dimorphic RBCs Polychromasia Hypochromasia Poikilocytosis Anisocytosis Microcytosis Macrocytosis Spherocytes Pappenheimer Bodies Sickle Cells Target Cells Tear Drop Cells Ovalocytes Helmet Cells [place] Bodies [place] Rings Kellogg Cells Bite Cells Crenated Cell Elliptocytes Acanthocytes (Spur) Rouleaux Hemoglobin C Crystals Schistocytes Malaria parasites Phil Bodies Hem Pathologist Commnt PT INR APTT Fibrinogen D-Dimer POC ABG pH 7.401 POC ABG pCO2 32.2 L POC ABG pO2 90 POC ABG HCO3 20.0 POC ABG Total CO2 21 POC ABG O2 Sat 97 POC ABG Base Excess -5 FiO2 35 Sodium Potassium Chloride Carbon Dioxide Anion Gap BUN Creatinine Estimated GFR BUN/Creatinine Ratio Glucose POC Glucose 113 H Calcium Phosphorus Total Creatine Kinase Triglycerides Procalcitonin Blood Type Antibody Screen Crossmatch 03/29/19 03/29/19 06:22 06:22 WBC RBC Hgb Hct MCV MCH MCHC RDW Plt Count Add Manual Diff Total Counted Seg Neuts % (Manual) Band Neutrophils % Lymphocytes % (Manual) Reactive Lymphs % (Man) Monocytes % (Manual) Eosinophils % (Manual) Basophils % (Manual) Metamyelocytes % Myelocytes % Promyelocytes % Blast Cells % Nucleated RBC % Seg Neutrophils # Man Band Neutrophils # Lymphocytes # (Manual) Abs React Lymphs (Man) Monocytes # (Manual) Eosinophils # (Manual) Basophils # (Manual) Metamyelocytes # Myelocytes # Promyelocytes # Blast Cells # WBC Morphology Hypersegmented Neuts Hyposegmented Neuts Hypogranular Neuts Smudge Cells Toxic Granulation Toxic Vacuolation Dohle Bodies Pelger-Huet Anomaly Joyce Rods Platelet Estimate Clumped Platelets Plt Clumps, EDTA Large Platelets Giant Platelets Platelet Satelliting Plt Morphology Comment RBC Morphology Dimorphic RBCs Polychromasia Hypochromasia Poikilocytosis Anisocytosis Microcytosis Macrocytosis Spherocytes Pappenheimer Bodies Sickle Cells Target Cells Tear Drop Cells Ovalocytes Helmet Cells [place] Bodies [place] Rings Kellogg Cells Bite Cells Crenated Cell Elliptocytes Acanthocytes (Spur) Rouleaux Hemoglobin C Crystals Schistocytes Malaria parasites Phil Bodies Hem Pathologist Commnt PT INR APTT Fibrinogen D-Dimer POC ABG pH POC ABG pCO2 POC ABG pO2 POC ABG HCO3 POC ABG Total CO2 POC ABG O2 Sat POC ABG Base Excess FiO2 Sodium 133 L Potassium 5.0 Chloride 93.8 L Carbon Dioxide 18 L Anion Gap 26 BUN 109 H Creatinine 7.4 H Estimated GFR 10 BUN/Creatinine Ratio 15 Glucose 124 H POC Glucose Calcium Phosphorus Total Creatine Kinase Triglycerides 309 H Procalcitonin Blood Type Antibody Screen Crossmatch Medications & Allergies - Medications Allergies/Adverse Reactions: Allergies No Known Allergies Allergy (Unverified 03/16/19 17:17) Home Medications: Home Medications Medication Instructions Recorded Confirmed Last Taken Type RX: Unobtainable 03/18/19 03/18/19 Unknown History Active Medications: Generic Name Dose Route Start Last Admin Trade Name Freq PRN Reason Stop Dose Admin Acetaminophen 650 mg 03/26/19 22:15 03/27/19 21:23 Tylenol PO 650 mg Q4H PRN Administration Pain, Mild (1-3), [id number]> Albuterol/Ipratropium 1 ampul 03/19/19 20:00 03/29/19 04:23 Duoneb *Not For Prn Use* IH 1 ampul Q4HRT PAOLO Administration Lipase/Protease/Amylase 1 each 03/17/19 14:[address] 10,500 Unit FEEDTUBE PRN PRN For Clogged Feeding Tube Calcitriol 0.5 mcg 03/26/19 11:00 03/28/19 10:00 Rocaltrol PO Not Given QDAY PAOLO Dextrose 50 gm 03/19/19 18:39 03/26/19 23:26 D50w (25gm) Vial IV 50 gm PRN PRN Administration Hypoglycemia Fentanyl 50 mcg 03/26/19 12:00 03/27/19 13:47 Sublimaze IV 50 mcg Q1H PRN Administration Pain, Moderate (4-6) Hydrophilic Ointment 1 applic 03/16/19 15:50 Vaseline Lip Therapy TP Q2HR PRN Dry Lips Phenylephrine HCl 100 mg/ 100 mls @ 3 mls/hr 03/17/19 02:30 03/19/19 18:48 Sodium Chloride IV Infused TITR PAOLO Titration Protocol 50 MCG/MIN Fentanyl Citrate 2,000 mcg in 100 mls @ 7.85 mls/hr 03/26/19 12:00 03/29/19 05:05 Fentanyl Drip Premix IV 2 mcg/kg/hr TITR PAOLO 15.7 mls/hr Administration Protocol 1 MCG/KG/HR Cefepime HCl 2 gm in 100 mls @ 200 mls/hr 03/27/19 14:00 03/28/19 14:30 Maxipime/Ns 2 Gm/100 Ml IV 200 mls/hr Q24H PAOLO Administration Protocol Norepinephrine 4 mg in 250 mls @ 7.5 mls/hr 03/27/19 22:16 03/29/19 04:56 Levophed Drip 4 Mg/Ns 250 Ml IV 2 mcg/min TITR PAOLO 7.5 mls/hr Titration Protocol 2 MCG/MIN Pantoprazole Sodium 80 mg/ 100 mls @ 10 mls/hr 03/28/19 09:30 03/28/19 09:30 Sodium Chloride IV 8 mg/hr DIRECT PAOLO 10 mls/hr Administration 8 MG/HR Vasopressin 20 unit/ Sodium 101 mls @ 9.09 mls/hr 03/28/19 09:00 03/28/19 15:38 Chloride IV 0 units/min TITR PAOLO 0 mls/hr Titration Protocol 0.03 UNITS/MIN Fluconazole 200 mg in 100 mls @ 100 mls/hr 03/28/19 10:00 03/28/19 10:30 Diflucan IV 100 mls/hr Q24HR PAOLO Administration Protocol Sodium Chloride 100 mls @ 999 mls/hr 03/28/19 10:41 Nacl 0.9% IV NEYMAR PRN Hypotension Amiodarone HCl 900 mg/ 500 mls @ 33.333 mls/hr 03/28/19 17:00 03/28/19 23:28 Dextrose IV 0.5 mg/min DIRECT PAOLO 16.667 mls/hr Infusion Protocol 1 MG/MIN Lorazepam 2 mg 03/26/19 11:54 03/27/19 02:44 Ativan IV 2 mg Q1H PRN Administration Agitation Metoprolol Tartrate 25 mg 03/28/19 14:00 03/28/19 20:44 Lopressor PO Not Given TID PAOLO Multi-Ingred Cream/Lotion/Oil/Oint 1 applic 03/16/19 15:50 03/19/19 20:10 Artificial Tears Ophth Oint OU 1 applic Q4HR PRN Administration Dry Eye(s) Ondansetron HCl 4 mg 03/16/19 22:21 Zofran IV Q8H PRN Nausea And Vomiting Simple Syrup 15 ml 03/17/19 14:45 03/26/19 23:19 Simple Syrup FEEDTUBE 15 ml PRN PRN Administration Hypoglycemia Simple Syrup 30 ml 03/17/19 14:45 Simple Syrup FEEDTUBE PRN PRN Hypoglycemia Sodium Bicarbonate 325 mg 03/17/19 14:45 Sodium Bicarbonate FEEDTUBE PRN PRN For Clogged Feeding Tube
[2019-03-29 07:19] LABS: Platelet Count 91 K/mm3 (140-440)
[2019-03-29 07:31] LABS: Calcium 4.6 mg/dL (8.4-10.2)
--- NOTE | 2019-03-29 08:13 | Progress Note ---
Assessment and Plan Assessment and plan: 43-year-old man with history of GERD and obesity who presented to the hospital altered mental status, he was visiting from [place] and brought in by his friend. He has been feeling ill for a few days and have left eye discharge and there was mention of right axilla/patient was more lethargic, had trouble breathing and then suddenly could not walk on his own. When he came to the ER was unable to speak or follow commands, in the ER he was found to have SVT with heart rate in the 250s. The patient was shocks and medicated. He became more confused and had trouble protecting his airway, he was then intubated -[facility] Status post, cardiopulmonary arrest, status post shock for SVT in 250s after which she deteriorated into polymorphic V. tach for which she was shocked again. And then intubated in the ER Paroxysmal A. fib with RVR Torsade sparkle points/ventricular tachycardia EF 40% * Cardiology input appreciated, continue amiodarone drip, no beta-adela or CHRISTIN given hypotension, will need ischemic cardiac stratification when improved Acute GI bleed, likely upper GI bleed -PPI drip, heparin drip discontinued, discussed with GI, will likely need scope when patient is stablizied with more blood products, too unstable for bleeding scan Acute blood loss anemia Transfused multiple units of PRBC, now improved Right IJ nonocclusive thrombosis Discussed with vascular surgery, patient unable to tolerate anticoagulation due to thrombocytopenia and bleeding. Will monitor Septic shock with multiorgan failure, off pressors for 48 hours Aspiration pneumonia Brain MRI was a limited study due to lack of contrast and motion artifact. No acute findings on MRI brain, could not evaluate for leptomeningeal enhancement without IV contrast , follow-up blood cultures, , LP awaited due to low platelets. Continue antibiotics, tickborne serologies pending, prognosis guarded Acute kidney injury, rhabdomyolysis, hyperkalemia Continue dialysis per nephrology Acute hypoxic respiratory failure on mechanical ventilator greater than 96 hours Continue ventilator, continue to attempt to wean per the piano case maker Presumed ARDS Profound hypocalcemia Being repleted, likely related to renal failure Acute Metabolic Encephalopathy Severe metabolic acidosis, rhabdomyolysis Thrombocytopenia Likely due to sepsis, continue to monitor Advanced care planning, family opting against DNR, wants all done. The high probability of a clinically significant, sudden or life threatening deterioration of the [multiple organs] system(s) required my full and direct attention, intervention and personal management. The aggregate critical care time was [45] minutes. This time is in addition to time spent performing repor amy procedures but includes the following: [x] Data Review and interpretation [x] Patient assessment and monitoring of vital signs [x] Documentation [x] Medication orders and management History Interval history: Continues to have fever, no seizure, no agitation, -no further GI bleeding, improved Hospitalist Physical - Physical exam Narrative exam: General.: Appears ill, intubated HEENT: Moist mucous membranes, extraocular muscles intact, no lymphadenopathy Neck: supple Cardiac: S1-S2 heard Lungs: Decreased breath sounds, ventilated breath sounds Abdomen: soft , nontender, nondistended, bowel sounds positive Extremities: edema Skin: no rash or lesions Neurologic: Intubated and sedated Psych: Intubated and sedated - Constitutional Vitals: Temp Pulse Resp BP Pulse Ox 99.0 F 90 16 125/52 95 03/29/19 04:00 03/29/19 06:30 03/29/19 06:30 03/29/19 06:30 03/29/19 06:30 General appearance: Present: other (intubated) Results - Labs CBC & Chem 7: 03/31/19 04:44 03/31/19 04:44 Labs: Laboratory Last Values WBC 23.2 K/mm3 (4.5-11.0) H 03/29/19 06:22 RBC 2.91 M/mm3 (3.65-5.03) L 03/29/19 06:22 Hgb 8.6 gm/dl (11.8-15.2) L 03/29/19 06:22 Hgb 8.6 gm/dl (11.8-15.2) L 03/29/19 06:22 Hct 25.7 % (35.5-45.6) L 03/29/19 06:22 Hct 25.8 % (35.5-45.6) L 03/29/19 06:22 MCV 89 fl (84-94) 03/29/19 06:22 MCH 30 pg (28-32) 03/29/19 06:22 MCHC 33 % (32-34) 03/29/19 06:22 RDW 15.1 % (13.2-15.2) 03/29/19 06:22 Plt Count 91 K/mm3 (140-440) L 03/29/19 06:22 Plt Count 93 K/mm3 (140-440) L 03/29/19 06:22 Zavala % (Auto) 1.6 % (0.0-7.3) 03/21/19 04:26 Zavala # 0.6 K/mm3 (0.0-0.8) 03/21/19 04:26 Add Manual Diff Complete 03/28/19 18:10 Total Counted 100 03/28/19 18:10 Seg Neutrophils % Foam Charger 03/26/19 Unknown Seg Neuts % (Manual) 91.0 % (40.0-70.0) H 03/28/19 18:10 Band Neutrophils % 0 % 03/28/19 18:10 Lymphocytes % (Manual) 8.0 % (13.4-35.0) L 03/28/19 18:10 Reactive Lymphs % (Man) 0 % 03/28/19 18:10 Monocytes % (Manual) 1.0 % (0.0-7.3) 03/28/19 18:10 Eosinophils % (Manual) 0 % (0.0-4.3) 03/28/19 18:10 Basophils % (Manual) 0 % (0.0-1.8) 03/28/19 18:10 Metamyelocytes % 0 % 03/28/19 18:10 Myelocytes % 0 % 03/28/19 18:10 Promyelocytes % 0 % 03/28/19 18:10 Blast Cells % 0 % 03/28/19 18:10 Nucleated RBC % Not Reportable 03/28/19 18:10 Seg Neutrophils # 34.6 K/mm3 (1.8-7.7) H 03/21/19 04:26 Seg Neutrophils # Man 22.6 K/mm3 (1.8-7.7) H 03/28/19 18:10 Band Neutrophils # 0.0 K/mm3 03/28/19 18:10 Lymphocytes # (Manual) 2.0 K/mm3 (1.2-5.4) 03/28/19 18:10 Abs React Lymphs (Man) 0.0 K/mm3 03/28/19 18:10 Monocytes # (Manual) 0.2 K/mm3 (0.0-0.8) 03/28/19 18:10 Eosinophils # (Manual) 0.0 K/mm3 (0.0-0.4) 03/28/19 18:10 Basophils # (Manual) 0.0 K/mm3 (0.0-0.1) 03/28/19 18:10 Metamyelocytes # 0.0 K/mm3 03/28/19 18:10 Myelocytes # 0.0 K/mm3 03/28/19 18:10 Promyelocytes # 0.0 K/mm3 03/28/19 18:10 Blast Cells # 0.0 K/mm3 03/28/19 18:10 WBC Morphology Not Reportable 03/28/19 18:10 Hypersegmented Neuts Not Reportable 03/28/19 18:10 Hyposegmented Neuts Not Reportable 03/28/19 18:10 Hypogranular Neuts Not Reportable 03/28/19 18:10 Smudge Cells Not Reportable 03/28/19 18:10 Toxic Granulation Not Reportable 03/28/19 18:10 Toxic Vacuolation Not Reportable 03/28/19 18:10 Dohle Bodies Not Reportable 03/28/19 18:10 Pelger-Huet Anomaly Not Reportable 03/28/19 18:10 Joyce Rods Not Reportable 03/28/19 18:10 Platelet Estimate Appears decreased 03/28/19 18:10 Clumped Platelets Not Reportable 03/28/19 18:10 Plt Clumps, EDTA Not Reportable 03/28/19 18:10 Large Platelets Not Reportable 03/28/19 18:10 Giant Platelets Not Reportable 03/28/19 18:10 Platelet Satelliting Not Reportable 03/28/19 18:10 Plt Morphology Comment Not Reportable 03/28/19 18:10 RBC Morphology Not Reportable 03/28/19 18:10 Dimorphic RBCs Not Reportable 03/28/19 18:10 Polychromasia Not Reportable 03/28/19 18:10 Hypochromasia Not Reportable 03/28/19 18:10 Poikilocytosis Not Reportable 03/28/19 18:10 Anisocytosis Few 03/28/19 18:10 Microcytosis Not Reportable 03/28/19 18:10 Macrocytosis Not Reportable 03/28/19 18:10 Spherocytes Not Reportable 03/28/19 18:10 Pappenheimer Bodies Not Reportable 03/28/19 18:10 Sickle Cells Not Reportable 03/28/19 18:10 Target Cells Not Reportable 03/28/19 18:10 Tear Drop Cells Not Reportable 03/28/19 18:10 Ovalocytes Not Reportable 03/28/19 18:10 Stomatocytes Few 03/26/19 Unknown Helmet Cells Not Reportable 03/28/19 18:10 Sh[place] Bodies Not Reportable 03/28/19 18:10 [place] Rings Not Reportable 03/28/19 18:10 Samantha Cells Not Reportable 03/28/19 18:10 Bite Cells Not Reportable 03/28/19 18:10 Crenated Cell Not Reportable 03/28/19 18:10 Elliptocytes Not Reportable 03/28/19 18:10 Acanthocytes (Spur) Not Reportable 03/28/19 18:10 Rouleaux Not Reportable 03/28/19 18:10 Hemoglobin C Crystals Not Reportable 03/28/19 18:10 Schistocytes Not Reportable 03/28/19 18:10 Malaria parasites Not Reportable 03/28/19 18:10 Phil Bodies Not Reportable 03/28/19 18:10 Hem Pathologist Commnt No 03/28/19 18:10 PT 17.9 Sec. (12.2-14.9) H 03/28/19 12:00 INR 1.52 (0.87-1.13) H 03/28/19 12:00 APTT 26.6 Sec. (24.2-36.6) 03/28/19 12:00 Fibrinogen 226 mg/dl (211-480) 03/28/19 12:00 D-Dimer 4845.98 ng/mlDDU (0-234) H 03/28/19 12:00 Heparin Anti-Xa Level 0.23 U.I./ml (0.3-0.7) L 03/28/19 05:13 POC ABG pH 7.401 (7.35-7.45) 03/29/19 04:29 ABG pH 7.326 pH Units (7.350-7.450) L 03/26/19 04:30 POC ABG pCO2 32.2 (35-45) L 03/29/19 04:29 ABG pCO2 36.4 mm Hg 03/26/19 04:30 POC ABG pO2 90 (80-105) 03/29/19 04:29 ABG pO2 137.4 mm Hg (80.0-90.0) H 03/26/19 04:30 POC ABG HCO3 20.0 (22-26 mml/L) 03/29/19 04:29 ABG HCO3 18.6 mmol/L (20.0-26.0) L 03/26/19 04:30 POC ABG Total CO2 21 (23-27mmol/L) 03/29/19 04:29 POC ABG O2 Sat 97 03/29/19 04:29 ABG O2 Saturation 98.6 % (95.0-99.0) 03/26/19 04:30 ABG O2 Content 13.7 (0.0-44) 03/26/19 04:30 POC ABG Base Excess -5 ((-2) - (+3)mmol/L) 03/29/19 04:29 ABG Base Excess -6.8 mmol/L (-2.0-3.0) L 03/26/19 04:30 ABG Hemoglobin 9.9 gm/dl (14.0-18.0) L 03/26/19 04:30 ABG Carboxyhemoglobin 1.4 % (0.0-5.0) 03/26/19 04:30 ABG Methemoglobin 0.6 % (0.0-1.5) 03/26/19 04:30 Oxyhemoglobin 96.5 % (95.0-99.0) 03/26/19 04:30 FiO2 35 % 03/29/19 04:29 Sodium 133 mmol/L (137-145) L 03/29/19 06:22 Potassium 5.0 mmol/L (3.6-5.0) 03/29/19 06:22 Chloride 93.8 mmol/L (98-107) L 03/29/19 06:22 Carbon Dioxide 18 mmol/L (22-30) L 03/29/19 06:22 Anion Gap 26 mmol/L 03/29/19 06:22 BUN 109 mg/dL (9-20) H 03/29/19 06:22 Creatinine 7.4 mg/dL (0.8-1.5) H 03/29/19 06:22 Estimated GFR 10 ml/min 03/29/19 06:22 BUN/Creatinine Ratio 15 % 03/29/19 06:22 Glucose 124 mg/dL (75-100) H 03/29/19 06:22 POC Glucose 113 (70-105) H 03/29/19 05:46 Lactic Acid 1.90 mmol/L (0.7-2.0) 03/21/19 21:31 Calcium 4.6 mg/dL (8.4-10.2) L* 03/29/19 06:22 Phosphorus 12.40 mg/dL (2.5-4.5) H 03/28/19 05:13 Magnesium 2.40 mg/dL (1.7-2.3) H 03/18/19 08:40 Total Bilirubin 0.80 mg/dL (0.1-1.2) 03/27/19 04:30 Direct Bilirubin 5.9 mg/dL (0-0.2) H 03/16/19 17:05 Indirect Bilirubin 0.3 mg/dL 03/16/19 17:05 AST 78 units/L (5-40) H 03/27/19 04:30 ALT 43 units/L (7-56) 03/27/19 04:30 Alkaline Phosphatase 135 units/L (35-129) H 03/27/19 04:30 Total Creatine Kinase 3401 units/L (55-170) H 03/29/19 06:22 CK-MB (CK-2) 54.3 ng/mL (0.0-4.0) H 03/17/19 07:16 CK-MB (CK-2) Rel Index 0.0 (0-4) 03/17/19 07:16 Troponin T 0.058 ng/mL (0.00-0.029) H 03/17/19 07:16 C-Reactive Protein 13.30 mg/dL (0.00-1.30) H 03/20/19 14:45 Total Protein 4.8 g/dL (6.3-8.2) L 03/27/19 04:30 Albumin 2.3 g/dL (3.9-5) L 03/27/19 04:30 Albumin/Globulin Ratio 0.9 % 03/27/19 04:30 Triglycerides 309 mg/dL (2-149) H 03/29/19 06:22 Cholesterol 88 mg/dL (50-199) 03/16/19 22:32 LDL Cholesterol Direct 10 mg/dL (50-130) L 03/16/19 22:32 HDL Cholesterol 7 mg/dL (40-59) L 03/16/19 22:32 Cholesterol/HDL Ratio 12.57 % 03/16/19 22:32 Procalcitonin 25.42 ng/mL (<0.15) 03/27/19 19:21 TSH 2.200 mlU/mL (0.270-4.200) 03/16/19 17:05 Free T4 0.72 ng/dL (0.76-1.46) L 03/16/19 17:05 PTH Intact 329.9 pg/mL (15-65) H 03/25/19 05:00 Urine Color Kathy (Yellow) 03/17/19 16:05 Urine Turbidity Cloudy (Clear) 03/17/19 16:05 Urine pH 5.0 (5.0-7.0) 03/17/19 16:05 Ur Specific [place] 1.014 (1.003-1.030) 03/17/19 16:05 Urine Protein >500 mg/dL (Negative) 03/17/19 16:05 Urine Glucose (UA) 50 mg/dL (Negative) 03/17/19 16:05 Urine Ketones Tr mg/dL (Negative) 03/17/19 16:05 Urine Blood Lg (Negative) 03/17/19 16:05 Urine Nitrite Neg (Negative) 03/17/19 16:05 Urine Bilirubin Neg (Negative) 03/17/19 16:05 Urine Urobilinogen < 2.0 mg/dL (<2.0) 03/17/19 16:05 Ur Leukocyte Esterase Mod (Negative) 03/17/19 16:05 Urine WBC (Auto) 30.0 /HPF (0.0-6.0) H 03/17/19 16:05 Urine RBC (Auto) 11.0 /HPF (0.0-6.0) 03/17/19 16:05 U Epithel Cells (Auto) < 1.0 /HPF (0-13.0) 03/17/19 16:05 Urine Mucus Few /HPF 03/17/19 16:05 Urine Sperm 2+ /HPF ([employer]) 03/17/19 16:05 Urine Eosinophils None seen (None Seen) 03/17/19 16:05 Urine Creatinine 106.6 mg/dL (0.1-20.0) H 03/17/19 16:05 Urine Sodium 95 mmol/L 03/17/19 16:05 Vancomycin Trough 11.5 ug/mL (5.0-20.0) 03/18/19 13:19 Random Vancomycin 8.2 ug/mL (0-40.0) 03/27/19 04:30 Salicylates < 0.3 mg/dL (2.8-20.0) L 03/16/19 17:05 Urine Opiates Screen Presumptive negative 03/17/19 16:05 Urine Methadone Screen Presumptive negative 03/17/19 16:05 Acetaminophen < 5.0 ug/mL (10.0-30.0) L 03/16/19 17:05 Ur Barbiturates Screen Presumptive negative 03/17/19 16:05 Ur Phencyclidine Scrn Presumptive negative 03/17/19 16:05 Ur Amphetamines Screen Presumptive negative 03/17/19 16:05 U Benzodiazepines Scrn Presumptive positive 03/17/19 16:05 Urine Cocaine Screen Presumptive negative 03/17/19 16:05 U Marijuana (THC) Screen Presumptive negative 03/17/19 16:05 Drugs of Abuse Note Disclamer 03/17/19 16:05 Plasma/Serum Alcohol < 0.01 % (0-0.07) 03/16/19 17:05 Hepatitis A IgM Ab Non-reactive (NonReactive) 03/18/19 13:18 Hep Bs Antigen Non-reactive (Negative) 03/18/19 13:18 Hep B Core IgM Ab Non-reactive (NonReactive) 03/18/19 13:18 Hepatitis C Antibody Non-reactive (NonReactive) 03/18/19 13:18 HIV 1&2 Antibody Rapid Non react (Non React) 03/17/19 11:52 HIV P24 Antigen Non react (Non React) 03/17/19 11:52 Influenza A (Rapid) Negative (Negative) 03/17/19 17:00 Influenza B (Rapid) Negative (Negative) 03/17/19 17:00 Group A Strep Rapid Negative (Negative) 03/17/19 17:00 Blood Type A POSITIVE 03/28/19 10:00 Antibody Screen Negative 03/28/19 10:00 Crossmatch See Detail 03/28/19 10:00 Active Medications - Current Medications Current Medications: Generic Name Dose Route Start Last Admin Trade Name Vicenta PRN Reason Stop Dose Admin Acetaminophen 650 mg 03/26/19 22:15 03/27/19 21:23 Tylenol PO 650 mg Q4H PRN Administration Pain, Mild (1-3), [id number]> Albuterol/Ipratropium 1 ampul 03/19/19 20:00 03/29/19 04:23 Duoneb *Not For Prn Use* IH 1 ampul Q4HRT PAOLO Administration Lipase/Protease/Amylase 1 each 03/17/19 14:45 Pancreaze 10,500 Unit FEEDTUBE PRN PRN For Clogged Feeding Tube Calcitriol 0.5 mcg 03/26/19 11:00 03/28/19 10:00 Rocaltrol PO Not Given QDAY PAOLO Calcium Chloride 2,000 mg 03/29/19 08:07 Calcium Chloride IVP 03/29/19 08:08 ONCE ONE Dextrose 50 gm 03/19/19 18:39 03/26/19 23:26 D50w (25gm) Vial IV 50 gm PRN PRN Administration Hypoglycemia Fentanyl 50 mcg 03/26/19 12:00 03/27/19 13:47 Sublimaze IV 50 mcg Q1H PRN Administration Pain, Moderate (4-6) Hydrophilic Ointment 1 applic 03/16/19 15:50 Vaseline Lip Therapy TP Q2HR PRN Dry Lips Phenylephrine HCl 100 mg/ 100 mls @ 3 mls/hr 03/17/19 02:30 03/19/19 18:48 Sodium Chloride IV Infused TITR PAOLO Titration Protocol 50 MCG/MIN Fentanyl Citrate 2,000 mcg in 100 mls @ 7.85 mls/hr 03/26/19 12:00 03/29/19 05:05 Fentanyl Drip Premix IV 2 mcg/kg/hr TITR PAOLO 15.7 mls/hr Administration Protocol 1 MCG/KG/HR Cefepime HCl 2 gm in 100 mls @ 200 mls/hr 03/27/19 14:00 03/28/19 14:30 Maxipime/Ns 2 Gm/100 Ml IV 200 mls/hr Q24H PAOLO Administration Protocol Norepinephrine 4 mg in 250 mls @ 7.5 mls/hr 03/27/19 22:16 03/29/19 04:56 Levophed Drip 4 Mg/Ns 250 Ml IV 2 mcg/min TITR PAOLO 7.5 mls/hr Titration Protocol 2 MCG/MIN Pantoprazole Sodium 80 mg/ 100 mls @ 10 mls/hr 03/28/19 09:30 03/28/19 09:30 Sodium Chloride IV 8 mg/hr DIRECT PAOLO 10 mls/hr Administration 8 MG/HR Vasopressin 20 unit/ Sodium 101 mls @ 9.09 mls/hr 03/28/19 09:00 03/28/19 15:38 Chloride IV 0 units/min TITR PAOLO 0 mls/hr Titration Protocol 0.03 UNITS/MIN Fluconazole 200 mg in 100 mls @ 100 mls/hr 03/28/19 10:00 03/28/19 10:30 Diflucan IV 100 mls/hr Q24HR PAOLO Administration Protocol Sodium Chloride 100 mls @ 999 mls/hr 03/28/19 10:41 Nacl 0.9% IV NEYMAR PRN Hypotension Amiodarone HCl 900 mg/ 500 mls @ 33.333 mls/hr 03/28/19 17:00 03/28/19 23:28 Dextrose IV 0.5 mg/min DIRECT PAOLO 16.667 mls/hr Infusion Protocol 1 MG/MIN Lorazepam 2 mg 03/26/19 11:54 03/27/19 02:44 Ativan IV 2 mg Q1H PRN Administration Agitation Metoprolol Tartrate 25 mg 03/28/19 14:00 03/28/19 20:44 Lopressor PO Not Given TID [facility] Multi-Ingred Cream/Lotion/Oil/Oint 1 applic 03/16/19 15:50 03/19/19 20:10 Artificial Tears Ophth Oint OU 1 applic Q4HR PRN Administration Dry Eye(s) Ondansetron HCl 4 mg 03/16/19 22:21 Zofran IV Q8H PRN Nausea And Vomiting Simple Syrup 15 ml 03/17/19 14:45 03/26/19 23:19 Simple Syrup FEEDTUBE 15 ml PRN PRN Administration Hypoglycemia Simple Syrup 30 ml 03/17/19 14:45 Simple Syrup FEEDTUBE PRN PRN Hypoglycemia Sodium Bicarbonate 325 mg 03/17/19 14:45 Sodium Bicarbonate FEEDTUBE PRN PRN For Clogged Feeding Tube Nutrition/Malnutrition Assess - Dietary Evaluation Nutrition/Malnutrition Findings: Nutrition Notes Start: 03/17/19 14:22 Freq: Status: Active Protocol: Document 03/27/19 10:01 AIYANA (Rec: 03/27/19 10:34 AIYANA [email or web address]) Co-Sign 03/27/19 10:01 LM Nutrition Notes Initial or Follow up Reassessment Current Diagnosis Acute Kidney Injury Other Pertinent Diagnosis on HD, Septic shock,Multiple organ failure, encephalopathy, rhabdomyolysis Current Diet Nepro with Carbsteady at 55ml/ hr Labs/Tests Na 135 Cl 93.5 BUN 84 Cr 7.1 Pertinent Medications Solu-corterf Height 6 ft Weight 157 kg Bethany Body Weight (kg) 80.90 BMI 46.9 Subjective/Other Information Pt is tolerating TF per MD. TF is at 40ml/hr Percent of energy/protein needs met: 79%/38% Burn Absent Trauma Absent Minimum of two criteria No #1 Nutrition Diagnosis Inadequate oral intake Diagnosis Progress(for reassessment Continues documentation) Is patient on ventilator? Yes Is Patient Ambulatory and/or Out of Bed No REE-([facility]-confined to bed) 2994.036 Kcal/Kg value to use for calculation 14 Approximate Energy Requirements Using 2198 kcal/Kg Calculation Used for Recommendations Kcal/kg Additional Notes Protein Needs: 202g (2.5g/kg IBW 80.9) Fluid Needs: 1 ml/kcal or per MD Nutrition Intervention Change Diet Order: Continue current Nutrition Support: Nepro 1.8 at 55 ml/hr Flush 100 ml q4hr for hyponatremia Kcal 2,376 Protein (gm) 107 Fluid (mL) 960 Goal #1 TF tolerance Goal #2 Meet at least 75% of energy and protein needs Anticipated Discharge Needs: Unable to determine at this time Follow-Up By: 03/29/19 Additional Comments F/U for TF tolerance and goal rate
[2019-03-29] MEDS: METOPROLOL TARTRATE 25 MG TAB PO SCH ×2 (08:58→18:07)
[2019-03-29] MEDS ORDERED: CALCIUM CHLORIDE 1,000 MG/10 ML SYRINGE IV ONE ×2 (09:00→12:00)
--- NOTE | 2019-03-29 09:10 | Progress Note ---
Assessment and Plan 1. Acute kidney injury: Vasomotor RUBEN in the setting of shock / volume depletion / Rhabdo. Baseline renal function is unknown. Patient remain anuric / oliguric. CT abdomen was negative for obstructive nephropathy. Monitor renal function. Renal prognosis is guarded. Avoid nephrotoxic agents. Meds dosage based on GFR. Patient was started on hemodialysis on 03/18/19 due to worsening metabolic acidosis and hyperkalemia. Hemodialysis: 03/18, 03/19, 03/20, 03/22, 03/23, 03/24, 03/26, 03/28, 03/29. 2. FEN: Hyperkalemia, low K bath HD today. Hyponatremia, monitor. Metabolic acidosis, monitor. Volume overload, UF with HD as tolerated. Hypocalcemia, likely multifactorial. Replete Calcium. Monitor lytes. 3. Septic shock: Followed by ID. Currently on Levophed. 4. Rhabdomyolysis: Follow CK level. 5. SVT / V.tach: Followed by Cards. 6. Respiratory failure: On vent. 7. Severe anemia: S/p PRBC yesterday. 8. Elevated transaminases. 9. Encephalopathy. Examination: General appearance: well-developed, appears stated age, obese, intubated, on vent HEENT: Atraumatic EYES: Pupils reacting to light Neck: supple Respiratory: coarse breath sounds Cardiology: regular, S1S2 heard, no murmur Gastrointestinal: no tenderness, obese, BS heard, scrotal edema noted Integumentary: no rash noted Neurologic: opens eyes, able to move hands Ext: trace edema of all 4 extremities Hemodialysis access: R IJ temp catheter Subjective Date of service: 03/29/19 Principal diagnosis: Septic Shock; Ac. hypoxemic resp failure; Renzo. PNA; Rhabdomyolysis; RUBEN Interval history: Patient was seen and examined at the bedside. Remain on the vent. Objective - Vital Signs Vital signs: Vital Signs - 12hr 03/28/19 03/28/19 03/28/19 21:30 22:00 22:30 Temperature Pulse Rate 83 81 79 Pulse Rate [ Anterior Bilateral Throughout] Pulse Rate [ From Monitor] Respiratory 25 H 25 H 25 H Rate Respiratory Rate [Anterior Bilateral Throughout] Blood Pressure 105/55 92/45 86/41 O2 Sat by Pulse 95 95 94 Oximetry 03/28/19 03/28/19 03/28/19 23:00 23:30 23:46 Temperature Pulse Rate 76 77 77 Pulse Rate [ Anterior Bilateral Throughout] Pulse Rate [ From Monitor] Respiratory 25 H 25 H 25 H Rate Respiratory Rate [Anterior Bilateral Throughout] Blood Pressure 108/51 110/56 118/56 O2 Sat by Pulse 97 97 97 Oximetry 03/29/19 03/29/19 03/29/19 00:00 00:30 00:31 Temperature 99.4 F Pulse Rate 77 80 78 Pulse Rate [ Anterior Bilateral Throughout] Pulse Rate [ 82 From Monitor] Respiratory 25 H 25 H Rate Respiratory Rate [Anterior Bilateral Throughout] Blood Pressure 116/54 125/56 125/56 O2 Sat by Pulse 97 92 92 Oximetry 03/29/19 03/29/19 03/29/19 00:34 01:00 01:30 Temperature Pulse Rate 81 86 Pulse Rate [ 80 Anterior Bilateral Throughout] Pulse Rate [ From Monitor] Respiratory 25 H 25 H Rate Respiratory 26 H Rate [Anterior Bilateral Throughout] Blood Pressure 128/61 117/54 O2 Sat by Pulse 96 95 Oximetry 03/29/19 03/29/19 03/29/19 02:00 02:30 03:00 Temperature Pulse Rate 85 85 85 Pulse Rate [ Anterior Bilateral Throughout] Pulse Rate [ From Monitor] Respiratory 25 H 25 H 26 H Rate Respiratory Rate [Anterior Bilateral Throughout] Blood Pressure 113/54 128/62 122/57 O2 Sat by Pulse 95 96 96 Oximetry 03/29/19 03/29/19 03/29/19 03:30 04:00 04:11 Temperature 99.0 F Pulse Rate 92 H 86 85 Pulse Rate [ Anterior Bilateral Throughout] Pulse Rate [ 90 From Monitor] Respiratory 15 25 H Rate Respiratory Rate [Anterior Bilateral Throughout] Blood Pressure 120/72 117/52 116/54 O2 Sat by Pulse 95 98 97 Oximetry 03/29/19 03/29/19 03/29/19 04:23 04:30 05:00 Temperature Pulse Rate 87 92 H Pulse Rate [ 88 Anterior Bilateral Throughout] Pulse Rate [ From Monitor] Respiratory 25 H 13 Rate Respiratory 24 Rate [Anterior Bilateral Throughout] Blood Pressure 124/56 117/53 O2 Sat by Pulse 98 93 Oximetry 03/29/19 03/29/19 03/29/19 05:30 06:00 06:30 Temperature Pulse Rate 88 93 H 90 Pulse Rate [ Anterior Bilateral Throughout] Pulse Rate [ From Monitor] Respiratory 25 H 20 16 Rate Respiratory Rate [Anterior Bilateral Throughout] Blood Pressure 103/52 131/70 125/52 O2 Sat by Pulse 92 97 95 Oximetry 03/29/19 03/29/19 03/29/19 07:00 07:30 08:00 Temperature 101.1 F H Pulse Rate 91 H 91 H 92 H Pulse Rate [ Anterior Bilateral Throughout] Pulse Rate [ From Monitor] Respiratory 14 17 20 Rate Respiratory Rate [Anterior Bilateral Throughout] Blood Pressure 101/53 121/54 127/55 O2 Sat by Pulse 96 96 96 Oximetry 03/29/19 03/29/19 03/29/19 08:30 08:50 08:54 Temperature Pulse Rate 89 91 H Pulse Rate [ 94 H Anterior Bilateral Throughout] Pulse Rate [ From Monitor] Respiratory 20 Rate Respiratory 26 H Rate [Anterior Bilateral Throughout] Blood Pressure 126/61 135/51 O2 Sat by Pulse 98 93 Oximetry 03/29/19 09:00 Temperature Pulse Rate 92 H Pulse Rate [ Anterior Bilateral Throughout] Pulse Rate [ From Monitor] Respiratory 15 Rate Respiratory Rate [Anterior Bilateral Throughout] Blood Pressure O2 Sat by Pulse 97 Oximetry - Lab 03/29/19 11:48 03/29/19 06:22 Most recent lab results ABG pH 7.326 pH Units (7.350-7.450) L 03/26/19 04:30 ABG pCO2 36.4 mm Hg 03/26/19 04:30 ABG pO2 137.4 mm Hg (80.0-90.0) H 03/26/19 04:30 ABG HCO3 18.6 mmol/L (20.0-26.0) L 03/26/19 04:30 ABG O2 Saturation 98.6 % (95.0-99.0) 03/26/19 04:30 Calcium 4.6 mg/dL (8.4-10.2) L* 03/29/19 06:22 Phosphorus 12.40 mg/dL (2.5-4.5) H 03/28/19 05:13 Magnesium 2.40 mg/dL (1.7-2.3) H 03/18/19 08:40 Urine Creatinine 106.6 mg/dL (0.1-20.0) H 03/17/19 16:05 Urine Sodium 95 mmol/L 03/17/19 16:05 Medications & Allergies - Medications Allergies/Adverse Reactions: Allergies No Known Allergies Allergy (Unverified 03/16/19 17:17) Home Medications: Home Medications Medication Instructions Recorded Confirmed Last Taken Type Unobtainable 03/18/19 03/18/19 Unknown History Active Medications: Generic Name Dose Route Start Last Admin Trade Name Freq PRN Reason Stop Dose Admin Acetaminophen 650 mg 03/26/19 22:15 03/27/19 21:23 Tylenol PO 650 mg Q4H PRN Administration Pain, Mild (1-3), ccapi194.5> Albuterol/Ipratropium 1 ampul 03/19/19 20:00 03/29/19 08:54 Duoneb *Not For Prn Use* IH 1 ampul Q4HRT PAOLO Administration Lipase/Protease/Amylase 1 each 03/17/19 14:[address] 10,500 Unit FEEDTUBE PRN PRN For Clogged Feeding Tube Calcium Chloride 2,000 mg 03/29/19 14:00 Calcium Chloride IVP Q6H PAOLO Dextrose 50 gm 03/19/19 18:39 03/26/19 23:26 D50w (25gm) Vial IV 50 gm PRN PRN Administration Hypoglycemia Fentanyl 50 mcg 03/26/19 12:00 03/27/19 13:47 Sublimaze IV 50 mcg Q1H PRN Administration Pain, Moderate (4-6) Hydrophilic Ointment 1 applic 03/16/19 15:50 Vaseline Lip Therapy TP Q2HR PRN Dry Lips Phenylephrine HCl 100 mg/ 100 mls @ 3 mls/hr 03/17/19 02:30 03/19/19 18:48 Sodium Chloride IV Infused TITR PAOLO Titration Protocol 50 MCG/MIN Fentanyl Citrate 2,000 mcg in 100 mls @ 7.85 mls/hr 03/26/19 12:00 03/29/19 0 5:05 Fentanyl Drip Premix IV 2 mcg/kg/hr TITR PAOLO 15.7 mls/hr Administration Protocol 1 MCG/KG/HR Cefepime HCl 2 gm in 100 mls @ 200 mls/hr 03/27/19 14:00 03/28/19 14:30 Maxipime/Ns 2 Gm/100 Ml IV 200 mls/hr Q24H PAOLO Administration Protocol Norepinephrine 4 mg in 250 mls @ 7.5 mls/hr 03/27/19 22:16 03/29/19 04:56 Levophed Drip 4 Mg/Ns 250 Ml IV 2 mcg/min TITR PAOLO 7.5 mls/hr Titration Protocol 2 MCG/MIN Pantoprazole Sodium 80 mg/ 100 mls @ 10 mls/hr 03/28/19 09:30 03/28/19 09:30 Sodium Chloride IV 8 mg/hr DIRECT PAOLO 10 mls/hr Administration 8 MG/HR Vasopressin 20 unit/ Sodium 101 mls @ 9.09 mls/hr 03/28/19 09:00 03/28/19 15:38 Chloride IV 0 units/min TITR PAOLO 0 mls/hr Titration Protocol 0.03 UNITS/MIN Fluconazole 200 mg in 100 mls @ 100 mls/hr 03/28/19 10:00 03/28/19 10:30 Diflucan IV 100 mls/hr Q24HR PAOLO Administration Protocol Sodium Chloride 100 mls @ 999 mls/hr 03/28/19 10:41 Nacl 0.9% IV NEYMAR PRN Hypotension Amiodarone HCl 900 mg/ 500 mls @ 33.333 mls/hr 03/28/19 17:00 03/28/19 23:28 Dextrose IV 0.5 mg/min DIRECT PAOLO 16.667 mls/hr Infusion Protocol 1 MG/MIN Lorazepam 2 mg 03/26/19 11:54 03/27/19 02:44 Ativan IV 2 mg Q1H PRN Administration Agitation Metoprolol Tartrate 25 mg 03/28/19 14:00 03/29/19 08:58 Lopressor PO Not Given TID PAOLO Multi-Ingred Cream/Lotion/Oil/Oint 1 applic 03/16/19 15:50 03/19/19 20:10 Artificial Tears Ophth Oint OU 1 applic Q4HR PRN Administration Dry Eye(s) Ondansetron HCl 4 mg 03/16/19 22:21 Zofran IV Q8H PRN Nausea And Vomiting Simple Syrup 15 ml 03/17/19 14:45 03/26/19 23:19 Simple Syrup FEEDTUBE 15 ml PRN PRN Administration Hypoglycemia Simple Syrup 30 ml 03/17/19 14:45 Simple Syrup FEEDTUBE PRN PRN Hypoglycemia Sodium Bicarbonate 325 mg 03/17/19 14:45 Sodium Bicarbonate FEEDTUBE PRN PRN For Clogged Feeding Tube
[2019-03-29] MEDS ORDERED: CALCITRIOL 0.5 MCG CAP PO SCH (10:00)
[2019-03-29] MEDS: FLUCONAZOLE 200 MG 200 MG/100 ML BAG IV SCH (10:36)
--- NOTE | 2019-03-29 11:06 | Progress Note ---
Assessment and Plan S/p cardiopulmonary arrest Upon admission on 03/16/2019, pt initially in SVT 250s and received 50 J synchronized shock, rhythm deteriorated to a polymorphic V. tach and then monomorphic V. tach and then patient was defibrillated at 325 J. Patient rhythm then became sinus. Pt was subsequently intubated in ED. Echo showed EF 40-45%, impaired relaxation. Leroy negative for AMI. ECGs with no acute ischemic changes. Plan for ischemic evaluation if/when medically stabilized. Acute respiratory failure Intubated. Management per pulmonary. Transient SVT Torsades sparkle pointes / Ventricular tachycardia / Prolonged QT interval QT 413, QTc 508 this AM. Plan for ischemic evaluation if/when medically stabilized. Paroxysmal atrial fibrillation with RVR Pt remains NPO. Cont IV amio. No systemic AC at this time regarding AFib in setting of anemia, thrombocytopenia, suspected GI bleed. Cardiomyopathy EF 40-45% Pt NPO. No BB or ACEI/ARB at this time in setting of NPO status, hypotension and acute renal failure. Plan for ischemic evaluation if/when medically stabilized. AMS Neurology following. Head CT with no definite acute findings. AMS secondary to metabolic encephalopathy per neurology. Septic shock / probable aspiration PNA / ? meningitis / right axillary cellulitis ID following. Per ID, ?Infectious etiology v/s possibility of Neuroleptic Malignant Syndrome given psych history, high fever of 105F and extremely elevated CPK of >100K. Pt remains febrile. Blood cultures negative to date. Abx per ID team. Unable to perform lumbar puncture at this time in setting of thrombocytopenia. Acute renal failure / Rhabdomyolysis Initiated on HD. Nephrology following. Hyperkalemia / Hyponatremia / Hypocalcemia Electrolyte management per nephrology. Enteritis Abdomen CT showed moderately dilated small bowel bowel loops in the mid to upper abdomen anteriorly with mild associated bowel wall thickening. Localized enteritis and small bowel ischemia should be considered. General surgery following. Per general surgery, no evidence of peritonitis an d no definitive indication for surgical intervention. Pt currently tolerating low volume TF infusion. Elevated LFTs / elevated INR ? shock liver. LFTs improving. Nonocclusive thrombus in right internal jugular vein S/p heparin gtt. GI bleed S/p heparin gtt. S/p PRBC tx. GI team following. S/p EGD yesterday. Unable to complete bleeding scan as pt is currently too unstable. Severe anemia / Thrombocytopenia S/p heparin gtt for nonocclusive thrombus in right IJ. Improved s/p PRBC tx. Hematology following. Elevated DDimer H/o psych disorder Obesity The patient has been seen in conjunction with Dr. Rubalcava who agrees with the assessment and plan of care. Subjective Date of service: 03/29/19 Principal diagnosis: Septic Shock; Ac. hypoxemic resp failure; Renzo. PNA; Rhabdomyolysis; RUBEN Interval history: pt remains intubated, moving arms and legs, no purposeful response noted, sedated, on vasopressor. in SR on telemetry. amio gtt infusing. no family at bedside. Objective Last Vital Signs Temp 101.1 F H 03/29/19 08:00 Pulse 92 H 03/29/19 09:00 Resp 15 03/29/19 09:00 BP 135/51 03/29/19 08:50 Pulse Ox 97 03/29/19 09:00 - Physical Examination General: Other (intubated, sedated) HEENT: Positive: PERRL Neck: Positive: neck supple Cardiac: Positive: Reg Rate and Rhythm, S1/S2 Lungs: Positive: Decreased Breath Sounds, Oxygen, Ventilated Respirations Neuro: Positive: Other (intubated) Abdomen: Positive: Unremarkable /Rectal: Other (deferred) Skin: Positive: Clear Musculoskeletal: Decreased Range of Motion Extremities: Present: lower extr. pulses (weak, thready ) - Labs and Meds Coagulation 03/28/19 Range/Units 12:00 PT 17.9 H (12.2-14.9) Sec. INR 1.52 H (0.87-1.13) APTT 26.6 (24.2-36.6) Sec. Lipids 03/29/19 Range/Units 06:22 Triglycerides 309 H (2-149) mg/dL CBC 03/28/19 03/28/19 03/29/19 Range/Units 12:28 18:10 06:22 WBC 24.8 H (4.5-11.0) K/mm3 RBC 3.42 L (3.65-5.03) M/mm3 Hgb 5.9 L* 10.2 L D 8.6 L (11.8-15.2) gm/dl Hct 18.3 L* 31.1 L D 25.7 L (35.5-45.6) % Plt Count 54 L 93 L (140-440) K/mm3 03/29/19 Range/Units 06:22 WBC 23.2 H (4.5-11.0) K/mm3 RBC 2.91 L (3.65-5.03) M/mm3 Hgb 8.6 L (11.8-15.2) gm/dl Hct 25.8 L (35.5-45.6) % Plt Count 91 L (140-440) K/mm3 Comprehensive Metabolic Panel 03/28/19 03/29/19 Range/Units Unknown 06:22 Sodium 133 L (137-145) mmol/L Potassium 5.7 H 5.0 (3.6-5.0) mmol/L Chloride 93.8 L (98-107) mmol/L Carbon Dioxide 18 L (22-30) mmol/L BUN 109 H (9-20) mg/dL Creatinine 7.4 H (0.8-1.5) mg/dL Glucose 124 H (75-100) mg/dL Calcium 4.6 L* (8.4-10.2) mg/dL - Imaging and Cardiology Echo: report reviewed ( EF 40-45%, impaired relaxation. ) - Telemetry EKG Rhythm: Sinus Rhythm - Allied health notes Allied health notes reviewed: RT
[2019-03-29] MEDS: LORazepam 2 MG/ML VIAL IV PRN (11:15)
--- NOTE | 2019-03-29 11:20 | Progress Note ---
Assessment and Plan Cultures: 03/16/2019 sputum: salivary contamination 03/16/2019 Blood culture: no growth 03/17/2019 Urine culture no growth 03/17/2019 throat culture: no growth 03/26/2019 Blood culture: no growth so far 03/27/2019 Blood culture negative. Assessment: 43y/o male with possible psych history admitted on 03/16/2019 with: 1) Septic shock: pressors requirement is down. Only on one pressor. Placed on multiple pressors on 03/28 due to acute GI bleed and severe Hg drop at 4.4. Noted fever 105 last night after right IJ exchanged overwire on 03/27, fever is better; still leukocytosis, worsening likely due to acute GI bleed. Fever source is unclear - suspect IJ DVT ?thrombophlebitis, other ?NMS ?sinusitis, ?drug fever. Repeat blood culture no growth so far. Brain MRI shows no acute intracranial a bnormality, mild nonspecific chronic white matter changes, fluid throughout the sinuses and mastoid air cells. Venous US + right IJ DVT. Initial septic shock - Possible Infectious etiology v/s possibility of Neuroleptic Malignant Syndrome given psych history, high fever of 105F and extre andrés elevated CPK of >100K. Unclear if he was on any psych med. From ID standpoint, we will continue broad coverage for acute bacterial meningitis, tick borne illness, aspiration pneumonia. Blood culture negative UA with mild pyuria. HIV rapid negative. Strep A rapid ag negative. No obvious infectious source identified yet. 2) Probable aspiration pneumonia: Already completed adequate abx. 3) Acute respiratory failure: on the vent. Improving. 4) ?Right axillary edema: no abscess, US no collection seen 5) Acute encephalopathy: improving, communicating. CT head showed diffuse cerebral edema ?artifact. But too unstable for LP at this time. Low suspicion for HSV meningoencephalitis given the degree of his initial shock and clinical status. Given nationwide acyclovir shortage and low suspicion, would not recommend IV Ganciclovir at this time. 6) Acute renal failure: renally dosing all abx, now on HD 7) Elevated LFTs/shock liver: also likely elevated from Rhabdomyolysis. Viral hepatitis panel negative. LFTs continue to improve. 8) Thrombocytopenia: multifactorial - better 9) Rhabdomyolysis: CK continues to improve 10) ?Enteritis: per CT ? no collection no perforation no obvious ischemic bowel. Gen. Surg following Recommendations: continue fluconazole, vancomycin, cefepime renally adjusted for now avoid drugs that can cause NMS Vascular on board F/u Blood culture x 2 sets LP awaited due to low platelets Risk for aspiration pneumonia Discussed with nursing staff Will follow. Risa Bryant MD Infectious Diseases Conference Organizer [facility] ([facility]) M [phone] O [phone] Subjective Date of service: 03/29/19 Principal diagnosis: Septic Shock; Ac. hypoxemic resp failure; Dannie. PNA; Rhabdomyolysis; RUBEN Interval history: Remains on one pressor, no further GI bleed, s/p multiple transfusions, more alert, communicating by nodding, fever 101. Still intubated. Objective - Exam Narrative Exam: General appearance: alert intubated opening eyes following commands Eyes: pupils dannie contracted poorly reactive, no jaundice HENT: Atraumatic; oropharynx with ETT/OGT Neck: no JVD Lungs:distant BS CV: RRR Abdomen: Soft, non-tender Extremities: marked dannie leg edema/arm edema Skin:no rash, +scrotal edema Psych: follows commands no agitated Neuro: follows commands no agitated Right IJ cath - Constitutional Vitals: Vital Signs Temp Pulse Resp BP Pulse Ox 101.1 F H 92 H 15 135/51 97 03/29/19 08:00 03/29/19 09:00 03/29/19 09:00 03/29/19 08:50 03/29/19 09:00 Temperature -Last 24 Hours Temperature 101.1 F Temperature 99.0 F Temperature 98.9 F Temperature 99.4 F Temperature 98.8 F Temperature 98.8 F Temperature 98.8 F Temperature 99 F Temperature 98.7 F Temperature 98.1 F Temperature 98.1 F Temperature 98.1 F Temperature 97.6 F Temperature 97.6 F Temperature 97.6 F Temperature 97.6 F Temperature 97 F Temperature 97.3 F Temperature 97.3 F Temperature 97.8 F Temperature 97.8 F Temperature 97.8 F Temperature 98.8 F Temperature 98.8 F Temperature 99 F - Labs CBC & Chem 7: 03/29/19 06:22 03/29/19 06:22 Labs: Abnormal lab results 03/27/19 03/28/19 03/28/19 Range/Units 18:00 10:00 12:00 WBC (4.5-11.0) K/mm3 RBC (3.65-5.03) M/mm3 Hgb (11.8-15.2) gm/dl Hct (35.5-45.6) % RDW (13.2-15.2) % Plt Count (140-440) K/mm3 Seg Neuts % (Manual) (40.0-70.0) % Lymphocytes % (Manual) (13.4-35.0) % Seg Neutrophils # Man (1.8-7.7) K/mm3 PT 17.9 H (12.2-14.9) Sec. INR 1.52 H (0.87-1.13) D-Dimer 4845.98 H (0-234) ng/mlDDU POC ABG pCO2 (35-45) Sodium (137-145) mmol/L Potassium (3.6-5.0) mmol/L Chloride (98-107) mmol/L Carbon Dioxide (22-30) mmol/L BUN (9-20) mg/dL Creatinine (0.8-1.5) mg/dL Glucose (75-100) mg/dL POC Glucose 121 H (70-105) Calcium (8.4-10.2) mg/dL Total Creatine Kinase (55-170) units/L Triglycerides (2-149) mg/dL Crossmatch See Detail 03/28/19 03/28/19 03/28/19 Range/Units 12:28 14:10 17:43 WBC (4.5-11.0) K/mm3 RBC (3.65-5.03) M/mm3 Hgb 5.9 L* (11.8-15.2) gm/dl Hct 18.3 L* (35.5-45.6) % RDW (13.2-15.2) % Plt Count (140-440) K/mm3 Seg Neuts % (Manual) (40.0-70.0) % Lymphocytes % (Manual) (13.4-35.0) % Seg Neutrophils # Man (1.8-7.7) K/mm3 PT (12.2-14.9) Sec. INR (0.87-1.13) D-Dimer (0-234) ng/mlDDU POC ABG pCO2 (35-45) Sodium (137-145) mmol/L Potassium (3.6-5.0) mmol/L Chloride (98-107) mmol/L Carbon Dioxide (22-30) mmol/L BUN (9-20) mg/dL Creatinine (0.8-1.5) mg/dL Glucose (75-100) mg/dL POC Glucose 153 H 159 H (70-105) Calcium (8.4-10.2) mg/dL Total Creatine Kinase (55-170) units/L Triglycerides (2-149) mg/dL Crossmatch 03/28/19 03/28/19 03/28/19 Range/Units 18:10 Unknown 23:59 WBC 24.8 H (4.5-11.0) K/mm3 RBC 3.42 L (3.65-5.03) M/mm3 Hgb 10.2 L D (11.8-15.2) gm/dl Hct 31.1 L D (35.5-45.6) % RDW 15.4 H (13.2-15.2) % Plt Count 54 L (140-440) K/mm3 Seg Neuts % (Manual) 91.0 H (40.0-70.0) % Lymphocytes % (Manual) 8.0 L (13.4-35.0) % Seg Neutrophils # Man 22.6 H (1.8-7.7) K/mm3 PT (12.2-14.9) Sec. INR (0.87-1.13) D-Dimer (0-234) ng/mlDDU POC ABG pCO2 (35-45) Sodium (137-145) mmol/L Potassium 5.7 H (3.6-5.0) mmol/L Chloride (98-107) mmol/L Carbon Dioxide (22-30) mmol/L BUN (9-20) mg/dL Creatinine (0.8-1.5) mg/dL Glucose (75-100) mg/dL POC Glucose 107 H (70-105) Calcium (8.4-10.2) mg/dL Total Creatine Kinase (55-170) units/L Triglycerides (2-149) mg/dL Crossmatch 03/29/19 03/29/19 03/29/19 Range/Units 04:29 05:46 06:22 WBC (4.5-11.0) K/mm3 RBC (3.65-5.03) M/mm3 Hgb 8.6 L (11.8-15.2) gm/dl Hct 25.7 L (35.5-45.6) % RDW (13.2-15.2) % Plt Count 93 L (140-440) K/mm3 Seg Neuts % (Manual) (40.0-70.0) % Lymphocytes % (Manual) (13.4-35.0) % Seg Neutrophils # Man (1.8-7.7) K/mm3 PT (12.2-14.9) Sec. INR (0.87-1.13) D-Dimer (0-234) ng/mlDDU POC ABG pCO2 32.2 L (35-45) Sodium (137-145) mmol/L Potassium (3.6-5.0) mmol/L Chloride (98-107) mmol/L Carbon Dioxide (22-30) mmol/L BUN (9-20) mg/dL Creatinine (0.8-1.5) mg/dL Glucose (75-100) mg/dL POC Glucose 113 H (70-105) Calcium (8.4-10.2) mg/dL Total Creatine Kinase (55-170) units/L Triglycerides (2-149) mg/dL Crossmatch 03/29/19 03/29/19 03/29/19 Range/Units 06:22 06:22 06:22 WBC 23.2 H (4.5-11.0) K/mm3 RBC 2.91 L (3.65-5.03) M/mm3 Hgb 8.6 L (11.8-15.2) gm/dl Hct 25.8 L (35.5-45.6) % RDW (13.2-15.2) % Plt Count 91 L (140-440) K/mm3 Seg Neuts % (Manual) (40.0-70.0) % Lymphocytes % (Manual) (13.4-35.0) % Seg Neutrophils # Man (1.8-7.7) K/mm3 PT (12.2-14.9) Sec. INR (0.87-1.13) D-Dimer (0-234) ng/mlDDU POC ABG pCO2 (35-45) Sodium 133 L (137-145) mmol/L Potassium (3.6-5.0) mmol/L Chloride 93.8 L (98-107) mmol/L Carbon Dioxide 18 L (22-30) mmol/L BUN 109 H (9-20) mg/dL Creatinine 7.4 H (0.8-1.5) mg/dL Glucose 124 H (75-100) mg/dL POC Glucose (70-105) Calcium 4.6 L* (8.4-10.2) mg/dL Total Creatine Kinase 3401 H (55-170) units/L Triglycerides 309 H (2-149) mg/dL Crossmatch
--- NOTE | 2019-03-29 11:28 | Progress Note ---
Assessment and Plan Severe sepsis with shock. Right axilla abscess versus localized pannus/fatty collection. Acute hypoxemic respiratory failure, on mechanical ventilator support. Likely aspiration pneumonia, bilateral. Morbid obesity. Rhabdomyolysis. Acute kidney injury. Leukocytosis. Morbid obesity. Metabolic acidosis. Lactic acidosis. Hypomagnesemia. Elevated serum transaminases/possible shock liver. Acute encephalopathy, toxic metabolic versus anoxic - get peripheral line from IV team; continue to use pigtail on trialysis catheter for central assess - prn albuterol - reduce set rate on MVS to 20/min - increased peep to 8 cm H2O - prn tylenol suppositories for fevers - get LFT's in am - keep on PRVC/AC for now - continue to wean FiO2 for sats > 90% - continue to wean Levophed for target MAP > 65 mmHg - continue amiodarone drip for A-fib - NPO for now (TPN shortly if remains NPO) - continue HD/UF per nephrology prescription - VAP bundle addressed - continue daily SAT's and SBT assessment as tolerated - target sedation for RASS 0 to -1 - prn analgesia per CPOT score - continue HD/UF per nephrology prescription and for toxin and volume control - prn supportive blood transfusions to keep serum Hb > 7.0 - Monitor hemodynamics closely - Transfuse PRBC's to keep HgB > 7g/dL - continue empiric broad spectrum antiinfective's per ID recommendations (de- escalate based on clinical and microbiologic data) - continue mobility protocols and off loading as tolerated for pressure ulcer prophylaxis - continue to avoid nephrotoxins, adjust all medications for GFR and CRCL - continue GI & VTE prophylaxis with - accuchecks with glycemic control per SSI for target BG of 140-180 mg/dl acutely - continue other care per attending / other consultants ... attempted to reach his brother on the phone unsuccessfully to update him ... re-evaluate in am & prn CONDITION: CRITICAL PROGNOSIS: VERY GUARDED CODE STATUS: FULL CODE Discussed extensively with RT/RN and care team in ICU IDT rounds The high probability of a clinically significant, sudden or life threatening deterioration of the [respiratory, renal and Cardiac] system's' required my full and direct attention, intervention and personal management. The aggregate critical care time was 35 minutes. This time is in addition to time spent performing reported procedures but includes the following: [x] Data Review and interpretation [x] Patient assessment and monitoring of vital signs [x] Documentation [x] Medication orders and management Subjective Date of service: 03/29/19 Principal diagnosis: Septic Shock; Ac. hypoxemic resp failure; Renzo. PNA; Rhabdomyolysis; RUBEN Interval history: Patient is seen today for: Severe sepsis with shock; Acute hypoxemic respiratory failure; Aspiration pneumonia; Morbid obesity; Rhabdomyolysis; Acute kidney injury; Morbid obesity; Elevated serum transaminases/possible shock liver; Acute encephalopathy (Toxic/Met) Seen and examined at bedside; 24hour events reviewed; nursing and respiratory care staff consulted; no adverse overnight events reported to me; resting peacefully in bed; remains on MVS; more alert and appropriate; A-fib with intermittent RVR today; no gross G.I. bleeding but H&H trending down; remains on PPI drip and NPO Objective Vital Signs - 12hr 03/28/19 03/28/19 03/29/19 23:30 23:46 00:00 Temperature 99.4 F Pulse Rate 77 77 77 Pulse Rate [ Anterior Bilateral Throughout] Pulse Rate [ 82 From Monitor] Respiratory 25 H 25 H 25 H Rate Respiratory Rate [Anterior Bilateral Throughout] Blood Pressure 110/56 118/56 116/54 O2 Sat by Pulse 97 97 97 Oximetry 03/29/19 03/29/19 03/29/19 00:30 00:31 00:34 Temperature Pulse Rate 80 78 Pulse Rate [ 80 Anterior Bilateral Throughout] Pulse Rate [ From Monitor] Respiratory 25 H Rate Respiratory 26 H Rate [Anterior Bilateral Throughout] Blood Pressure 125/56 125/56 O2 Sat by Pulse 92 92 Oximetry 03/29/19 03/29/19 03/29/19 01:00 01:30 02:00 Temperature Pulse Rate 81 86 85 Pulse Rate [ Anterior Bilateral Throughout] Pulse Rate [ From Monitor] Respiratory 25 H 25 H 25 H Rate Respiratory Rate [Anterior Bilateral Throughout] Blood Pressure 128/61 117/54 113/54 O2 Sat by Pulse 96 95 95 Oximetry 03/29/19 03/29/19 03/29/19 02:30 03:00 03:30 Temperature Pulse Rate 85 85 92 H Pulse Rate [ Anterior Bilateral Throughout] Pulse Rate [ From Monitor] Respiratory 25 H 26 H 15 Rate Respiratory Rate [Anterior Bilateral Throughout] Blood Pressure 128/62 122/57 120/72 O2 Sat by Pulse 96 96 95 Oximetry 03/29/19 03/29/19 03/29/19 04:00 04:11 04:23 Temperature 99.0 F Pulse Rate 86 85 Pulse Rate [ 88 Anterior Bilateral Throughout] Pulse Rate [ 90 From Monitor] Respiratory 25 H Rate Respiratory 24 Rate [Anterior Bilateral Throughout] Blood Pressure 117/52 116/54 O2 Sat by Pulse 98 97 Oximetry 03/29/19 03/29/19 03/29/19 04:30 05:00 05:30 Temperature Pulse Rate 87 92 H 88 Pulse Rate [ Anterior Bilateral Throughout] Pulse Rate [ From Monitor] Respiratory 25 H 13 25 H Rate Respiratory Rate [Anterior Bilateral Throughout] Blood Pressure 124/56 117/53 103/52 O2 Sat by Pulse 98 93 92 Oximetry 03/29/19 03/29/19 03/29/19 06:00 06:30 07:00 Temperature Pulse Rate 93 H 90 91 H Pulse Rate [ Anterior Bilateral Throughout] Pulse Rate [ From Monitor] Respiratory 20 16 14 Rate Respiratory Rate [Anterior Bilateral Throughout] Blood Pressure 131/70 125/52 101/53 O2 Sat by Pulse 97 95 96 Oximetry 03/29/19 03/29/19 03/29/19 07:30 08:00 08:30 Temperature 101.1 F H Pulse Rate 91 H 92 H 89 Pulse Rate [ Anterior Bilateral Throughout] Pulse Rate [ From Monitor] Respiratory 17 20 20 Rate Respiratory Rate [Anterior Bilateral Throughout] Blood Pressure 121/54 127/55 126/61 O2 Sat by Pulse 96 96 98 Oximetry 03/29/19 03/29/19 03/29/19 08:50 08:54 09:00 Temperature Pulse Rate 91 H 92 H Pulse Rate [ 94 H Anterior Bilateral Throughout] Pulse Rate [ From Monitor] Respiratory 15 Rate Respiratory 26 H Rate [Anterior Bilateral Throughout] Blood Pressure 135/51 O2 Sat by Pulse 93 97 Oximetry 03/29/19 11:25 Temperature Pulse Rate 136 H Pulse Rate [ Anterior Bilateral Throughout] Pulse Rate [ From Monitor] Respiratory Rate Respiratory Rate [Anterior Bilateral Throughout] Blood Pressure 104/61 O2 Sat by Pulse 97 Oximetry Constitutional: no acute distress, other (middle aged morbidly obese CM, normocephalic with incresed respiratory effort on MVS) Eyes: icteric ENT: oropharynx moist, other (ETT 23-24 cm PEDRO, ulcers over his upper lip) Neck: supple, no lymphadenopathy, no JVD, other (large neck circumference) Effort: mildly labored Ascultation: Bilateral: diminished breath sounds, rales Percussion: Bilateral: not dull Cardiovascular: regular rate and rhythm, other ( S1,S2) Gastrointestinal: hypoactive bowel sounds, soft, non-tender, non-distended, other (obese) Integumentary: normal, other (blisters with some weeping over the extremities) Extremities: no cyanosis, pink and warm, pulses normal, no ischemia or petechiae Neurologic: non-focal exam (grossly), pupils equal and round, CN II-XII normal, other (obeys simple commands when SAT was done) Psychiatric: mood appropriate, affect normal CBC and BMP: 03/30/19 08:45 03/30/19 04:31 ABG, PT/INR, D-dimer: ABG POC ABG pH 7.401 (7.35-7.45) 03/29/19 04:29 ABG pH 7.326 pH Units (7.350-7.450) L 03/26/19 04:30 POC ABG pCO2 32.2 (35-45) L 03/29/19 04:29 ABG pCO2 36.4 mm Hg 03/26/19 04:30 POC ABG pO2 90 (80-105) 03/29/19 04:29 ABG pO2 137.4 mm Hg (80.0-90.0) H 03/26/19 04:30 POC ABG HCO3 20.0 (22-26 mml/L) 03/29/19 04:29 POC ABG Total CO2 21 (23-27mmol/L) 03/29/19 04:29 POC ABG O2 Sat 97 03/29/19 04:29 ABG O2 Saturation 98.6 % (95.0-99.0) 03/26/19 04:30 PT/INR, D-dimer PT 17.9 Sec. (12.2-14.9) H 03/28/19 12:00 INR 1.52 (0.87-1.13) H 03/28/19 12:00 D-Dimer 4845.98 ng/mlDDU (0-234) H 03/28/19 12:00 Abnormal lab findings: Abnormal Labs 03/16/19 03/16/19 03/16/19 15:32 16:03 16:05 WBC 27.0 H RBC 5.55 H Hgb 15.7 H Hct 47.1 H RDW Plt Count 75 L Seg Neuts % (Manual) 85.0 H Lymphocytes % (Manual) 2.0 L Monocytes % (Manual) Nucleated RBC % Seg Neutrophils # Seg Neutrophils # Man 23.0 H Lymphocytes # (Manual) 0.5 L Monocytes # (Manual) PT INR D-Dimer Heparin Anti-Xa Level POC ABG pH ABG pH POC ABG pCO2 POC ABG pO2 ABG pO2 ABG HCO3 ABG O2 Saturation ABG Base Excess ABG Hemoglobin Oxyhemoglobin Sodium 127 L Potassium Chloride 87.8 L Carbon Dioxide 17 L BUN 49 H Creatinine 5.8 H Glucose 150 H POC Glucose 118 H Lactic Acid Calcium 6.6 L Phosphorus Magnesium 1.10 L Total Bilirubin Direct Bilirubin AST ALT Alkaline Phosphatase Total Creatine Kinase 08393 H CK-MB (CK-2) Troponin T C-Reactive Protein Total Protein Albumin Triglycerides LDL Cholesterol Direct HDL Cholesterol Free T4 PTH Intact Urine WBC (Auto) Urine Creatinine Salicylates Acetaminophen Crossmatch 03/16/19 03/16/19 03/16/19 16:59 17:05 17:05 WBC RBC Hgb Hct RDW Plt Count Seg Neuts % (Manual) Lymphocytes % (Manual) Monocytes % (Manual) Nucleated RBC % Seg Neutrophils # Seg Neutrophils # Man Lymphocytes # (Manual) Monocytes # (Manual) PT INR D-Dimer Heparin Anti-Xa Level POC ABG pH 7.297 L ABG pH POC ABG pCO2 33.0 L POC ABG pO2 ABG pO2 ABG HCO3 ABG O2 Saturation ABG Base Excess ABG Hemoglobin Oxyhemoglobin Sodium Potassium Chloride Carbon Dioxide BUN Creatinine Glucose POC Glucose Lactic Acid Calcium Phosphorus Magnesium Total Bilirubin Direct Bilirubin AST ALT Alkaline Phosphatase Total Creatine Kinase 40293 H CK-MB (CK-2) 83.1 H Troponin T C-Reactive Protein Total Protein Albumin Triglycerides LDL Cholesterol Direct HDL Cholesterol Free T4 0.72 L PTH Intact Urine WBC (Auto) Urine Creatinine Salicylates Acetaminophen Crossmatch 03/16/19 03/16/19 03/16/19 17:05 17:05 17:05 WBC RBC Hgb Hct RDW Plt Count Seg Neuts % (Manual) Lymphocytes % (Manual) Monocytes % (Manual) Nucleated RBC % Seg Neutrophils # Seg Neutrophils # Man Lymphocytes # (Manual) Monocytes # (Manual) PT INR D-Dimer Heparin Anti-Xa Level POC ABG pH ABG pH POC ABG pCO2 POC ABG pO2 ABG pO2 ABG HCO3 ABG O2 Saturation ABG Base Excess ABG Hemoglobin Oxyhemoglobin Sodium Potassium Chloride Carbon Dioxide BUN Creatinine Glucose POC Glucose Lactic Acid 5.10 H* Calcium Phosphorus Magnesium Total Bilirubin Direct Bilirubin AST ALT Alkaline Phosphatase Total Creatine Kinase CK-MB (CK-2) Troponin T C-Reactive Protein Total Protein Albumin Triglycerides LDL Cholesterol Direct HDL Cholesterol Free T4 PTH Intact Urine WBC (Auto) Urine Creatinine Salicylates < 0.3 L Acetaminophen < 5.0 L Crossmatch 03/16/19 03/16/19 03/16/19 17:05 17:05 20:35 WBC RBC Hgb Hct RDW Plt Count Seg Neuts % (Manual) Lymphocytes % (Manual) Monocytes % (Manual) Nucleated RBC % Seg Neutrophils # Seg Neutrophils # Man Lymphocytes # (Manual) Monocytes # (Manual) PT 15.9 H INR 1.30 H D-Dimer Heparin Anti-Xa Level POC ABG pH ABG pH POC ABG pCO2 POC ABG pO2 ABG pO2 ABG HCO3 ABG O2 Saturation ABG Base Excess ABG Hemoglobin Oxyhemoglobin Sodium Potassium Chloride Carbon Dioxide BUN Creatinine Glucose POC Glucose Lactic Acid 3.30 H* Calcium Phosphorus Magnesium Total Bilirubin 6.20 H Direct Bilirubin 5.9 H AST 800 H ALT 120 H Alkaline Phosphatase Total Creatine Kinase CK-MB (CK-2) Troponin T C-Reactive Protein Total Protein 4.4 L Albumin 2.4 L Triglycerides LDL Cholesterol Direct HDL Cholesterol Free T4 PTH Intact Urine WBC (Auto) Urine Creatinine Salicylates Acetaminophen Crossmatch 03/16/19 03/16/19 03/16/19 21:45 22:32 Unknown WBC RBC Hgb Hct RDW Plt Count Seg Neuts % (Manual) Lymphocytes % (Manual) Monocytes % (Manual) Nucleated RBC % Seg Neutrophils # Seg Neutrophils # Man Lymphocytes # (Manual) Monocytes # (Manual) PT INR D-Dimer Heparin Anti-Xa Level POC ABG pH ABG pH POC ABG pCO2 POC ABG pO2 ABG pO2 ABG HCO3 ABG O2 Saturation ABG Base Excess ABG Hemoglobin Oxyhemoglobin Sodium Potassium Chloride Carbon Dioxide BUN Creatinine Glucose POC Glucose Lactic Acid 3.30 H* 3.00 H* Calcium Phosphorus Magnesium Total Bilirubin Direct Bilirubin AST ALT Alkaline Phosphatase Total Creatine Kinase CK-MB (CK-2) Troponin T 0.047 H D C-Reactive Protein Total Protein Albumin Triglycerides 395 H LDL Cholesterol Direct 10 L HDL Cholesterol 7 L Free T4 PTH Intact Urine WBC (Auto) Urine Creatinine Salicylates Acetaminophen Crossmatch 03/17/19 03/17/19 03/17/19 03:45 03:45 03:45 WBC RBC Hgb Hct RDW Plt Count Seg Neuts % (Manual) Lymphocytes % (Manual) Monocytes % (Manual) Nucleated RBC % Seg Neutrophils # Seg Neutrophils # Man Lymphocytes # (Manual) Monocytes # (Manual) PT INR D-Dimer Heparin Anti-Xa Level POC ABG pH ABG pH POC ABG pCO2 POC ABG pO2 ABG pO2 ABG HCO3 ABG O2 Saturation ABG Base Excess ABG Hemoglobin Oxyhemoglobin Sodium 131 L Potassium Chloride 88.9 L Carbon Dioxide BUN 53 H Creatinine 7.1 H Glucose POC Glucose Lactic Acid 4.10 H* Calcium 5.4 L* D Phosphorus 7.30 H Magnesium 1.60 L Total Bilirubin 5.90 H Direct Bilirubin AST 801 H ALT 109 H Alkaline Phosphatase Total Creatine Kinase 12887 H 48489 H CK-MB (CK-2) 41.5 H Troponin T 0.054 H C-Reactive Protein Total Protein 4.5 L Albumin 2.0 L Triglycerides LDL Cholesterol Direct HDL Cholesterol Free T4 PTH Intact Urine WBC (Auto) Urine Creatinine Salicylates Acetaminophen Crossmatch 03/17/19 03/17/19 03/17/19 05:47 07:16 07:16 WBC RBC Hgb Hct RDW Plt Count Seg Neuts % (Manual) Lymphocytes % (Manual) Monocytes % (Manual) Nucleated RBC % Seg Neutrophils # Seg Neutrophils # Man Lymphocytes # (Manual) Monocytes # (Manual) PT INR D-Dimer Heparin Anti-Xa Level POC ABG pH 7.193 L ABG pH POC ABG pCO2 45.2 H POC ABG pO2 65 L ABG pO2 ABG HCO3 ABG O2 Saturation ABG Base Excess ABG Hemoglobin Oxyhemoglobin Sodium Potassium Chloride Carbon Dioxide BUN Creatinine Glucose POC Glucose Lactic Acid 5.50 H* Calcium Phosphorus Magnesium Total Bilirubin Direct Bilirubin AST ALT Alkaline Phosphatase Total Creatine Kinase 87707 H CK-MB (CK-2) 54.3 H Troponin T 0.058 H C-Reactive Protein Total Protein Albumin Triglycerides LDL Cholesterol Direct HDL Cholesterol Free T4 PTH Intact Urine WBC (Auto) Urine Creatinine Salicylates Acetaminophen Crossmatch 03/17/19 03/17/19 03/17/19 11:52 12:51 13:01 WBC RBC Hgb Hct RDW Plt Count Seg Neuts % (Manual) Lymphocytes % (Manual) Monocytes % (Manual) Nucleated RBC % Seg Neutrophils # Seg Neutrophils # Man Lymphocytes # (Manual) Monocytes # (Manual) PT INR D-Dimer Heparin Anti-Xa Level POC ABG pH 7.154 L ABG pH POC ABG pCO2 34.3 L POC ABG pO2 73 L ABG pO2 ABG HCO3 ABG O2 Saturation ABG Base Excess ABG Hemoglobin Oxyhemoglobin Sodium Potassium Chloride Carbon Dioxide BUN Creatinine Glucose POC Glucose 60 L Lactic Acid 8.20 H* Calcium Phosphorus Magnesium Total Bilirubin Direct Bilirubin AST ALT Alkaline Phosphatase Total Creatine Kinase CK-MB (CK-2) Troponin T C-Reactive Protein Total Protein Albumin Triglycerides LDL Cholesterol Direct HDL Cholesterol Free T4 PTH Intact Urine WBC (Auto) Urine Creatinine Salicylates Acetaminophen Crossmatch 03/17/19 03/17/19 03/17/19 14:37 14:37 14:37 WBC 29.3 H RBC Hgb Hct RDW 15.8 H Plt Count 45 L Seg Neuts % (Manual) 81.0 H Lymphocytes % (Manual) 1.0 L Monocytes % (Manual) 15.0 H Nucleated RBC % Seg Neutrophils # Seg Neutrophils # Man 23.7 H Lymphocytes # (Manual) 0.3 L Monocytes # (Manual) 4.4 H PT INR D-Dimer Heparin Anti-Xa Level POC ABG pH ABG pH POC ABG pCO2 POC ABG pO2 ABG pO2 ABG HCO3 ABG O2 Saturation ABG Base Excess ABG Hemoglobin Oxyhemoglobin Sodium Potassium Chloride Carbon Dioxide BUN Creatinine Glucose POC Glucose Lactic Acid 4.90 H* Calcium Phosphorus Magnesium Total Bilirubin Direct Bilirubin AST ALT Alkaline Phosphatase Total Creatine Kinase CK-MB (CK-2) Troponin T C-Reactive Protein 24.90 H Total Protein Albumin Triglycerides LDL Cholesterol Direct HDL Cholesterol Free T4 PTH Intact Urine WBC (Auto) Urine Creatinine Salicylates Acetaminophen Crossmatch 03/17/19 03/17/19 03/17/19 16:05 16:05 17:02 WBC RBC Hgb Hct RDW Plt Count Seg Neuts % (Manual) Lymphocytes % (Manual) Monocytes % (Manual) Nucleated RBC % Seg Neutrophils # Seg Neutrophils # Man Lymphocytes # (Manual) Monocytes # (Manual) PT INR D-Dimer Heparin Anti-Xa Level POC ABG pH 7.183 L ABG pH POC ABG pCO2 POC ABG pO2 65 L ABG pO2 ABG HCO3 ABG O2 Saturation ABG Base Excess ABG Hemoglobin Oxyhemoglobin Sodium Potassium Chloride Carbon Dioxide BUN Creatinine Glucose POC Glucose Lactic Acid Calcium Phosphorus Magnesium Total Bilirubin Direct Bilirubin AST ALT Alkaline Phosphatase Total Creatine Kinase CK-MB (CK-2) Troponin T C-Reactive Protein Total Protein Albumin Triglycerides LDL Cholesterol Direct HDL Cholesterol Free T4 PTH Intact Urine WBC (Auto) 30.0 H Urine Creatinine 106.6 H Salicylates Acetaminophen Crossmatch 03/18/19 03/18/19 03/18/19 05:12 05:16 05:53 WBC RBC Hgb Hct RDW Plt Count Seg Neuts % (Manual) Lymphocytes % (Manual) Monocytes % (Manual) Nucleated RBC % Seg Neutrophils # Seg Neutrophils # Man Lymphocytes # (Manual) Monocytes # (Manual) PT INR D-Dimer Heparin Anti-Xa Level POC ABG pH 7.257 L ABG pH POC ABG pCO2 31.6 L POC ABG pO2 69 L ABG pO2 ABG HCO3 ABG O2 Saturation ABG Base Excess ABG Hemoglobin Oxyhemoglobin Sodium Potassium Chloride Carbon Dioxide BUN Creatinine Glucose POC Glucose 141 H Lactic Acid 5.00 H* Calcium Phosphorus Magnesium Total Bilirubin Direct Bilirubin AST ALT Alkaline Phosphatase Total Creatine Kinase CK-MB (CK-2) Troponin T C-Reactive Protein Total Protein Albumin Triglycerides LDL Cholesterol Direct HDL Cholesterol Free T4 PTH Intact Urine WBC (Auto) Urine Creatinine Salicylates Acetaminophen Crossmatch 03/18/19 03/18/19 03/18/19 06:57 08:40 08:40 WBC 31.7 H RBC Hgb Hct RDW 15.5 H Plt Count 35 L Seg Neuts % (Manual) Lymphocytes % (Manual) Monocytes % (Manual) Nucleated RBC % Seg Neutrophils # Seg Neutrophils # Man Lymphocytes # (Manual) Monocytes # (Manual) PT INR D-Dimer Heparin Anti-Xa Level POC ABG pH ABG pH POC ABG pCO2 POC ABG pO2 ABG pO2 ABG HCO3 ABG O2 Saturation ABG Base Excess ABG Hemoglobin Oxyhemoglobin Sodium 132 L Potassium 5.5 H D Chloride 88.5 L Carbon Dioxide 18 L BUN 71 H Creatinine 8.1 H Glucose 205 H POC Glucose Lactic Acid 5.00 H* Calcium 4.1 L* D Phosphorus Magnesium 2.40 H Total Bilirubin 7.50 H Direct Bilirubin AST 1088 H ALT 159 H Alkaline Phosphatase 190 H Total Creatine Kinase 713704 H CK-MB (CK-2) Troponin T C-Reactive Protein Total Protein 4.7 L Albumin 1.8 L Triglycerides LDL Cholesterol Direct HDL Cholesterol Free T4 PTH Intact Urine WBC (Auto) Urine Creatinine Salicylates Acetaminophen Crossmatch 03/18/19 03/18/19 03/18/19 12:33 12:50 13:19 WBC RBC Hgb Hct RDW Plt Count Seg Neuts % (Manual) Lymphocytes % (Manual) Monocytes % (Manual) Nucleated RBC % Seg Neutrophils # Seg Neutrophils # Man Lymphocytes # (Manual) Monocytes # (Manual) PT INR D-Dimer Heparin Anti-Xa Level POC ABG pH 7.282 L ABG pH POC ABG pCO2 POC ABG pO2 67 L ABG pO2 ABG HCO3 ABG O2 Saturation ABG Base Excess ABG Hemoglobin Oxyhemoglobin Sodium Potassium Chloride Carbon Dioxide BUN Creatinine Glucose POC Glucose 129 H Lactic Acid 3.30 H* Calcium Phosphorus Magnesium Total Bilirubin Direct Bilirubin AST ALT Alkaline Phosphatase Total Creatine Kinase CK-MB (CK-2) Troponin T C-Reactive Protein Total Protein Albumin Triglycerides LDL Cholesterol Direct HDL Cholesterol Free T4 PTH Intact Urine WBC (Auto) Urine Creatinine Salicylates Acetaminophen Crossmatch 03/18/19 03/18/19 03/18/19 13:19 16:50 18:11 WBC RBC Hgb Hct RDW Plt Count Seg Neuts % (Manual) Lymphocytes % (Manual) Monocytes % (Manual) Nucleated RBC % Seg Neutrophils # Seg Neutrophils # Man Lymphocytes # (Manual) Monocytes # (Manual) PT INR D-Dimer Heparin Anti-Xa Level POC ABG pH ABG pH POC ABG pCO2 POC ABG pO2 59 L ABG pO2 ABG HCO3 ABG O2 Saturation ABG Base Excess ABG Hemoglobin Oxyhemoglobin Sodium Potassium Chloride Carbon Dioxide BUN Creatinine Glucose POC Glucose 151 H Lactic Acid Calcium 4.2 L* Phosphorus Magnesium Total Bilirubin Direct Bilirubin AST ALT Alkaline Phosphatase Total Creatine Kinase 213249 H CK-MB (CK-2) Troponin T C-Reactive Protein Total Protein Albumin Triglycerides LDL Cholesterol Direct HDL Cholesterol Free T4 PTH Intact Urine WBC (Auto) Urine Creatinine Salicylates Acetaminophen Crossmatch 03/18/19 03/18/19 03/19/19 18:20 23:39 01:42 WBC RBC Hgb Hct RDW Plt Count Seg Neuts % (Manual) Lymphocytes % (Manual) Monocytes % (Manual) Nucleated RBC % Seg Neutrophils # Seg Neutrophils # Man Lymphocytes # (Manual) Monocytes # (Manual) PT INR D-Dimer Heparin Anti-Xa Level POC ABG pH 7.345 L ABG pH 7.285 L POC ABG pCO2 POC ABG pO2 59 L ABG pO2 44.0 L ABG HCO3 ABG O2 Saturation 70.9 L ABG Base Excess -5.7 L ABG Hemoglobin 11.9 L Oxyhemoglobin 69.6 L Sodium Potassium Chloride Carbon Dioxide BUN Creatinine Glucose POC Glucose 152 H Lactic Acid Calcium Phosphorus Magnesium Total Bilirubin Direct Bilirubin AST ALT Alkaline Phosphatase Total Creatine Kinase CK-MB (CK-2) Troponin T C-Reactive Protein Total Protein Albumin Triglycerides LDL Cholesterol Direct HDL Cholesterol Free T4 PTH Intact Urine WBC (Auto) Urine Creatinine Salicylates Acetaminophen Crossmatch 03/19/19 03/19/19 03/19/19 04:00 04:00 05:35 WBC 36.5 H RBC Hgb Hct RDW 15.8 H Plt Count 35 L Seg Neuts % (Manual) Lymphocytes % (Manual) Monocytes % (Manual) Nucleated RBC % Seg Neutrophils # Seg Neutrophils # Man Lymphocytes # (Manual) Monocytes # (Manual) PT INR D-Dimer Heparin Anti-Xa Level POC ABG pH ABG pH 7.265 L POC ABG pCO2 POC ABG pO2 ABG pO2 35.4 L* ABG HCO3 ABG O2 Saturation 54.4 L ABG Base Excess -6.7 L ABG Hemoglobin 12.9 L Oxyhemoglobin 53.4 L Sodium 132 L Potassium 5.7 H Chloride 89.8 L Carbon Dioxide 19 L BUN 62 H Creatinine 6.4 H Glucose 151 H POC Glucose Lactic Acid Calcium 5.2 L* D Phosphorus Magnesium Total Bilirubin 7.80 H Direct Bilirubin AST 682 H ALT 130 H Alkaline Phosphatase 167 H Total Creatine Kinase CK-MB (CK-2) Troponin T C-Reactive Protein Total Protein 4.8 L Albumin 2.3 L Triglycerides LDL Cholesterol Direct HDL Cholesterol Free T4 PTH Intact Urine WBC (Auto) Urine Creatinine Salicylates Acetaminophen Crossmatch 03/19/19 03/19/19 03/19/19 05:49 09:16 09:50 WBC RBC Hgb Hct RDW Plt Count Seg Neuts % (Manual) Lymphocytes % (Manual) Monocytes % (Manual) Nucleated RBC % Seg Neutrophils # Seg Neutrophils # Man Lymphocytes # (Manual) Monocytes # (Manual) PT INR D-Dimer Heparin Anti-Xa Level POC ABG pH 7.222 L ABG pH POC ABG pCO2 56.6 H POC ABG pO2 ABG pO2 ABG HCO3 ABG O2 Saturation ABG Base Excess ABG Hemoglobin Oxyhemoglobin Sodium Potassium Chloride Carbon Dioxide BUN Creatinine Glucose POC Glucose 154 H Lactic Acid 2.70 H* Calcium Phosphorus Magnesium Total Bilirubin Direct Bilirubin AST ALT Alkaline Phosphatase Total Creatine Kinase CK-MB (CK-2) Troponin T C-Reactive Protein Total Protein Albumin Triglycerides LDL Cholesterol Direct HDL Cholesterol Free T4 PTH Intact Urine WBC (Auto) Urine Creatinine Salicylates Acetaminophen Crossmatch 03/19/19 03/19/19 03/19/19 09:50 11:28 17:58 WBC RBC Hgb Hct RDW Plt Count Seg Neuts % (Manual) Lymphocytes % (Manual) Monocytes % (Manual) Nucleated RBC % Seg Neutrophils # Seg Neutrophils # Man Lymphocytes # (Manual) Monocytes # (Manual) PT INR D-Dimer Heparin Anti-Xa Level POC ABG pH 7.250 L ABG pH POC ABG pCO2 52.6 H POC ABG pO2 ABG pO2 ABG HCO3 ABG O2 Saturation ABG Base Excess ABG Hemoglobin Oxyhemoglobin Sodium Potassium Chloride Carbon Dioxide BUN Creatinine Glucose POC Glucose 160 H Lactic Acid Calcium Phosphorus Magnesium Total Bilirubin Direct Bilirubin AST ALT Alkaline Phosphatase Total Creatine Kinase 50315 H CK-MB (CK-2) Troponin T C-Reactive Protein Total Protein Albumin Triglycerides LDL Cholesterol Direct HDL Cholesterol Free T4 PTH Intact Urine WBC (Auto) Urine Creatinine Salicylates Acetaminophen Crossmatch 03/19/19 03/19/19 03/20/19 19:48 21:03 02:16 WBC RBC Hgb Hct RDW Plt Count Seg Neuts % (Manual) Lymphocytes % (Manual) Monocytes % (Manual) Nucleated RBC % Seg Neutrophils # Seg Neutrophils # Man Lymphocytes # (Manual) Monocytes # (Manual) PT INR D-Dimer Heparin Anti-Xa Level POC ABG pH 7.279 L ABG pH POC ABG pCO2 50.3 H POC ABG pO2 129 H ABG pO2 ABG HCO3 ABG O2 Saturation ABG Base Excess ABG Hemoglobin Oxyhemoglobin Sodium Potassium Chloride Carbon Dioxide BUN Creatinine Glucose POC Glucose 119 H 119 H Lactic Acid Calcium Phosphorus Magnesium Total Bilirubin Direct Bilirubin AST ALT Alkaline Phosphatase Total Creatine Kinase CK-MB (CK-2) Troponin T C-Reactive Protein Total Protein Albumin Triglycerides LDL Cholesterol Direct HDL Cholesterol Free T4 PTH Intact Urine WBC (Auto) Urine Creatinine Salicylates Acetaminophen Crossmatch 03/20/19 03/20/19 03/20/19 04:23 05:05 09:30 WBC 36.3 H RBC Hgb Hct RDW 15.5 H Plt Count 29 L Seg Neuts % (Manual) Lymphocytes % (Manual) Monocytes % (Manual) Nucleated RBC % Seg Neutrophils # Seg Neutrophils # Man Lymphocytes # (Manual) Monocytes # (Manual) PT INR D-Dimer Heparin Anti-Xa Level POC ABG pH ABG pH POC ABG pCO2 POC ABG pO2 280 H ABG pO2 ABG HCO3 ABG O2 Saturation ABG Base Excess ABG Hemoglobin Oxyhemoglobin Sodium Potassium Chloride Carbon Dioxide BUN Creatinine Glucose POC Glucose 115 H Lactic Acid Calcium Phosphorus Magnesium Total Bilirubin Direct Bilirubin AST ALT Alkaline Phosphatase Total Creatine Kinase CK-MB (CK-2) Troponin T C-Reactive Protein Total Protein Albumin Triglycerides LDL Cholesterol Direct HDL Cholesterol Free T4 PTH Intact Urine WBC (Auto) Urine Creatinine Salicylates Acetaminophen Crossmatch 03/20/19 03/20/19 03/20/19 09:30 09:30 11:34 WBC RBC Hgb Hct RDW Plt Count Seg Neuts % (Manual) Lymphocytes % (Manual) Monocytes % (Manual) Nucleated RBC % Seg Neutrophils # Seg Neutrophils # Man Lymphocytes # (Manual) Monocytes # (Manual) PT INR D-Dimer Heparin Anti-Xa Level POC ABG pH ABG pH POC ABG pCO2 POC ABG pO2 ABG pO2 ABG HCO3 ABG O2 Saturation ABG Base Excess ABG Hemoglobin Oxyhemoglobin Sodium 131 L Potassium Chloride 92.3 L Carbon Dioxide 20 L BUN 68 H Creatinine 6.1 H Glucose 164 H POC Glucose 141 H Lactic Acid Calcium 5.3 L* Phosphorus Magnesium Total Bilirubin 9.50 H Direct Bilirubin AST 381 H ALT 116 H Alkaline Phosphatase 255 H Total Creatine Kinase 51077 H CK-MB (CK-2) Troponin T C-Reactive Protein Total Protein 5.1 L Albumin 2.3 L Triglycerides LDL Cholesterol Direct HDL Cholesterol Free T4 PTH Intact Urine WBC (Auto) Urine Creatinine Salicylates Acetaminophen Crossmatch 03/20/19 03/20/19 03/20/19 14:41 14:45 18:50 WBC RBC Hgb Hct RDW Plt Count Seg Neuts % (Manual) Lymphocytes % (Manual) Monocytes % (Manual) Nucleated RBC % Seg Neutrophils # Seg Neutrophils # Man Lymphocytes # (Manual) Monocytes # (Manual) PT INR D-Dimer Heparin Anti-Xa Level POC ABG pH ABG pH POC ABG pCO2 POC ABG pO2 ABG pO2 ABG HCO3 ABG O2 Saturation ABG Base Excess ABG Hemoglobin Oxyhemoglobin Sodium Potassium Chloride Carbon Dioxide BUN Creatinine Glucose POC Glucose 117 H Lactic Acid 2.90 H* Calcium Phosphorus Magnesium Total Bilirubin Direct Bilirubin AST ALT Alkaline Phosphatase Total Creatine Kinase CK-MB (CK-2) Troponin T C-Reactive Protein 13.30 H Total Protein Albumin Triglycerides LDL Cholesterol Direct HDL Cholesterol Free T4 PTH Intact Urine WBC (Auto) Urine Creatinine Salicylates Acetaminophen Crossmatch 03/20/19 03/21/19 03/21/19 21:55 04:26 04:26 WBC 37.8 H RBC Hgb Hct RDW 15.4 H Plt Count 36 L Seg Neuts % (Manual) 93.0 H Lymphocytes % (Manual) 3.0 L Monocytes % (Manual) Nucleated RBC % 1.0 H Seg Neutrophils # 34.6 H Seg Neutrophils # Man 35.2 H Lymphocytes # (Manual) 1.1 L Monocytes # (Manual) PT INR D-Dimer Heparin Anti-Xa Level POC ABG pH ABG pH POC ABG pCO2 POC ABG pO2 ABG pO2 ABG HCO3 ABG O2 Saturation ABG Base Excess ABG Hemoglobin Oxyhemoglobin Sodium 131 L Potassium Chloride 90.7 L Carbon Dioxide 21 L BUN 69 H Creatinine 5.7 H Glucose 170 H POC Glucose 128 H Lactic Acid Calcium 6.1 L D Phosphorus Magnesium Total Bilirubin 9.50 H Direct Bilirubin AST 308 H ALT 124 H Alkaline Phosphatase 327 H Total Creatine Kinase 71655 H CK-MB (CK-2) Troponin T C-Reactive Protein Total Protein 5.7 L Albumin 2.6 L Triglycerides LDL Cholesterol Direct HDL Cholesterol Free T4 PTH Intact Urine WBC (Auto) Urine Creatinine Salicylates Acetaminophen Crossmatch 03/21/19 03/21/19 03/21/19 05:17 05:39 08:29 WBC RBC Hgb Hct RDW Plt Count Seg Neuts % (Manual) Lymphocytes % (Manual) Monocytes % (Manual) Nucleated RBC % Seg Neutrophils # Seg Neutrophils # Man Lymphocytes # (Manual) Monocytes # (Manual) PT INR D-Dimer Heparin Anti-Xa Level POC ABG pH ABG pH POC ABG pCO2 POC ABG pO2 209 H ABG pO2 ABG HCO3 ABG O2 Saturation ABG Base Excess ABG Hemoglobin Oxyhemoglobin Sodium Potassium Chloride Carbon Dioxide BUN Creatinine Glucose POC Glucose 145 H Lactic Acid Calcium Phosphorus Magnesium Total Bilirubin Direct Bilirubin AST ALT Alkaline Phosphatase Total Creatine Kinase 11203 H CK-MB (CK-2) Troponin T C-Reactive Protein Total Protein Albumin Triglycerides LDL Cholesterol Direct HDL Cholesterol Free T4 PTH Intact Urine WBC (Auto) Urine Creatinine Salicylates Acetaminophen Crossmatch 03/21/19 03/21/19 03/21/19 08:29 11:43 12:00 WBC RBC Hgb Hct RDW Plt Count Seg Neuts % (Manual) Lymphocytes % (Manual) Monocytes % (Manual) Nucleated RBC % Seg Neutrophils # Seg Neutrophils # Man Lymphocytes # (Manual) Monocytes # (Manual) PT INR D-Dimer Heparin Anti-Xa Level POC ABG pH ABG pH POC ABG pCO2 POC ABG pO2 ABG pO2 ABG HCO3 ABG O2 Saturation ABG Base Excess ABG Hemoglobin Oxyhemoglobin Sodium Potassium Chloride Carbon Dioxide BUN Creatinine Glucose POC Glucose 123 H Lactic Acid 2.60 H* 2.20 H* Calcium Phosphorus Magnesium Total Bilirubin Direct Bilirubin AST ALT Alkaline Phosphatase Total Creatine Kinase CK-MB (CK-2) Troponin T C-Reactive Protein Total Protein Albumin Triglycerides LDL Cholesterol Direct HDL Cholesterol Free T4 PTH Intact Urine WBC (Auto) Urine Creatinine Salicylates Acetaminophen Crossmatch 03/21/19 03/21/19 03/21/19 14:11 18:28 19:32 WBC RBC Hgb Hct RDW Plt Count Seg Neuts % (Manual) Lymphocytes % (Manual) Monocytes % (Manual) Nucleated RBC % Seg Neutrophils # Seg Neutrophils # Man Lymphocytes # (Manual) Monocytes # (Manual) PT INR D-Dimer Heparin Anti-Xa Level POC ABG pH 7.293 L ABG pH POC ABG pCO2 POC ABG pO2 ABG pO2 ABG HCO3 ABG O2 Saturation ABG Base Excess ABG Hemoglobin Oxyhemoglobin Sodium Potassium Chloride Carbon Dioxide BUN Creatinine Glucose POC Glucose 153 H Lactic Acid 2.10 H* Calcium Phosphorus Magnesium Total Bilirubin Direct Bilirubin AST ALT Alkaline Phosphatase Total Creatine Kinase CK-MB (CK-2) Troponin T C-Reactive Protein Total Protein Albumin Triglycerides LDL Cholesterol Direct HDL Cholesterol Free T4 PTH Intact Urine WBC (Auto) Urine Creatinine Salicylates Acetaminophen Crossmatch 03/21/19 03/22/19 03/22/19 23:38 05:08 05:51 WBC RBC Hgb Hct RDW Plt Count Seg Neuts % (Manual) Lymphocytes % (Manual) Monocytes % (Manual) Nucleated RBC % Seg Neutrophils # Seg Neutrophils # Man Lymphocytes # (Manual) Monocytes # (Manual) PT INR D-Dimer Heparin Anti-Xa Level POC ABG pH 7.283 L ABG pH POC ABG pCO2 POC ABG pO2 53 L ABG pO2 ABG HCO3 ABG O2 Saturation ABG Base Excess ABG Hemoglobin Oxyhemoglobin Sodium Potassium Chloride Carbon Dioxide BUN Creatinine Glucose POC Glucose 149 H 131 H Lactic Acid Calcium Phosphorus Magnesium Total Bilirubin Direct Bilirubin AST ALT Alkaline Phosphatase Total Creatine Kinase CK-MB (CK-2) Troponin T C-Reactive Protein Total Protein Albumin Triglycerides LDL Cholesterol Direct HDL Cholesterol Free T4 PTH Intact Urine WBC (Auto) Urine Creatinine Salicylates Acetaminophen Crossmatch 03/22/19 03/22/19 03/22/19 08:00 08:00 18:19 WBC 36.7 H RBC Hgb 11.0 L Hct 33.5 L RDW 15.5 H Plt Count 43 L Seg Neuts % (Manual) 87.0 H Lymphocytes % (Manual) 7.0 L Monocytes % (Manual) Nucleated RBC % Seg Neutrophils # Seg Neutrophils # Man 31.9 H Lymphocytes # (Manual) Monocytes # (Manual) PT INR D-Dimer Heparin Anti-Xa Level POC ABG pH ABG pH POC ABG pCO2 46.4 H POC ABG pO2 108 H ABG pO2 ABG HCO3 ABG O2 Saturation ABG Base Excess ABG Hemoglobin Oxyhemoglobin Sodium 132 L Potassium 5.6 H Chloride 89.6 L Carbon Dioxide 20 L BUN 101 H Creatinine 7.4 H Glucose 124 H POC Glucose Lactic Acid Calcium 5.2 L* Phosphorus Magnesium Total Bilirubin 2.80 H Direct Bilirubin AST 119 H ALT 86 H Alkaline Phosphatase 245 H Total Creatine Kinase CK-MB (CK-2) Troponin T C-Reactive Protein Total Protein 5.6 L Albumin 2.5 L Triglycerides LDL Cholesterol Direct HDL Cholesterol Free T4 PTH Intact Urine WBC (Auto) Urine Creatinine Salicylates Acetaminophen Crossmatch 03/22/19 03/23/19 03/23/19 20:37 04:49 05:28 WBC 35.9 H RBC Hgb 10.8 L Hct 33.2 L RDW 15.5 H Plt Count 49 L Seg Neuts % (Manual) 81.0 H Lymphocytes % (Manual) 3.5 L Monocytes % (Manual) Nucleated RBC % Seg Neutrophils # Seg Neutrophils # Man 29.1 H Lymphocytes # (Manual) Monocytes # (Manual) 1.4 H PT INR D-Dimer Heparin Anti-Xa Level POC ABG pH 7.296 L ABG pH POC ABG pCO2 46.2 H POC ABG pO2 ABG pO2 ABG HCO3 ABG O2 Saturation ABG Base Excess ABG Hemoglobin Oxyhemoglobin Sodium 129 L Potassium 5.2 H Chloride 91.1 L Carbon Dioxide BUN 91 H Creatinine 6.6 H Glucose 190 H POC Glucose Lactic Acid Calcium 5.3 L* Phosphorus Magnesium Total Bilirubin 1.80 H Direct Bilirubin AST 80 H ALT 62 H Alkaline Phosphatase 209 H Total Creatine Kinase 9758 H CK-MB (CK-2) Troponin T C-Reactive Protein Total Protein 5.2 L Albumin 2.2 L Triglycerides LDL Cholesterol Direct HDL Cholesterol Free T4 PTH Intact Urine WBC (Auto) Urine Creatinine Salicylates Acetaminophen Crossmatch 03/23/19 03/23/19 03/23/19 05:28 05:31 11:33 WBC 29.7 H RBC 3.59 L Hgb 10.1 L Hct 31.1 L RDW 15.4 H Plt Count 47 L Seg Neuts % (Manual) 89.0 H Lymphocytes % (Manual) 6.0 L Monocytes % (Manual) Nucleated RBC % 1.0 H Seg Neutrophils # Seg Neutrophils # Man 26.4 H Lymphocytes # (Manual) Monocytes # (Manual) PT INR D-Dimer Heparin Anti-Xa Level POC ABG pH ABG pH POC ABG pCO2 POC ABG pO2 ABG pO2 ABG HCO3 ABG O2 Saturation ABG Base Excess ABG Hemoglobin Oxyhemoglobin Sodium Potassium Chloride Carbon Dioxide BUN Creatinine Glucose POC Glucose 122 H 113 H Lactic Acid Calcium Phosphorus Magnesium Total Bilirubin Direct Bilirubin AST ALT Alkaline Phosphatase Total Creatine Kinase CK-MB (CK-2) Troponin T C-Reactive Protein Total Protein Albumin Triglycerides LDL Cholesterol Direct HDL Cholesterol Free T4 PTH Intact Urine WBC (Auto) Urine Creatinine Salicylates Acetaminophen Crossmatch 03/23/19 03/24/19 03/24/19 17:47 00:00 04:50 WBC 35.0 H RBC Hgb 10.4 L Hct 32.4 L RDW Plt Count 60 L Seg Neuts % (Manual) 93.0 H Lymphocytes % (Manual) 5.0 L Monocytes % (Manual) Nucleated RBC % 7.0 H Seg Neutrophils # Seg Neutrophils # Man 32.6 H Lymphocytes # (Manual) Monocytes # (Manual) PT INR D-Dimer Heparin Anti-Xa Level POC ABG pH ABG pH POC ABG pCO2 POC ABG pO2 ABG pO2 ABG HCO3 ABG O2 Saturation ABG Base Excess ABG Hemoglobin Oxyhemoglobin Sodium Potassium Chloride Carbon Dioxide BUN Creatinine Glucose POC Glucose 111 H 108 H Lactic Acid Calcium Phosphorus Magnesium Total Bilirubin Direct Bilirubin AST ALT Alkaline Phosphatase Total Creatine Kinase CK-MB (CK-2) Troponin T C-Reactive Protein Total Protein Albumin Triglycerides LDL Cholesterol Direct HDL Cholesterol Free T4 PTH Intact Urine WBC (Auto) Urine Creatinine Salicylates Acetaminophen Crossmatch 03/24/19 03/24/19 03/24/19 04:50 05:06 12:55 WBC RBC Hgb Hct RDW Plt Count Seg Neuts % (Manual) Lymphocytes % (Manual) Monocytes % (Manual) Nucleated RBC % Seg Neutrophils # Seg Neutrophils # Man Lymphocytes # (Manual) Monocytes # (Manual) PT INR D-Dimer Heparin Anti-Xa Level POC ABG pH ABG pH POC ABG pCO2 POC ABG pO2 ABG pO2 ABG HCO3 ABG O2 Saturation ABG Base Excess ABG Hemoglobin Oxyhemoglobin Sodium 134 L Potassium 5.1 H Chloride 95.3 L Carbon Dioxide 21 L BUN 85 H Creatinine 6.4 H Glucose 109 H POC Glucose 112 H 110 H Lactic Acid Calcium 5.8 L* Phosphorus Magnesium Total Bilirubin Direct Bilirubin AST ALT Alkaline Phosphatase Total Creatine Kinase 5747 H CK-MB (CK-2) Troponin T C-Reactive Protein Total Protein Albumin Triglycerides LDL Cholesterol Direct HDL Cholesterol Free T4 PTH Intact Urine WBC (Auto) Urine Creatinine Salicylates Acetaminophen Crossmatch 03/24/19 03/25/19 03/25/19 23:29 05:00 05:00 WBC RBC Hgb Hct RDW Plt Count Seg Neuts % (Manual) Lymphocytes % (Manual) Monocytes % (Manual) Nucleated RBC % Seg Neutrophils # Seg Neutrophils # Man Lymphocytes # (Manual) Monocytes # (Manual) PT INR D-Dimer Heparin Anti-Xa Level POC ABG pH ABG pH POC ABG pCO2 POC ABG pO2 ABG pO2 ABG HCO3 ABG O2 Saturation ABG Base Excess ABG Hemoglobin Oxyhemoglobin Sodium 133 L Potassium Chloride 94.0 L Carbon Dioxide 21 L BUN 81 H Creatinine 6.4 H Glucose POC Glucose 109 H Lactic Acid Calcium 5.5 L* Phosphorus Magnesium Total Bilirubin Direct Bilirubin AST 80 H ALT Alkaline Phosphatase 202 H Total Creatine Kinase 3589 H CK-MB (CK-2) Troponin T C-Reactive Protein Total Protein 5.3 L Albumin 2.4 L Triglycerides LDL Cholesterol Direct HDL Cholesterol Free T4 PTH Intact 329.9 H Urine WBC (Auto) Urine Creatinine Salicylates Acetaminophen Crossmatch 03/25/19 03/25/19 03/26/19 05:00 06:30 04:30 WBC 23.3 H RBC 3.61 L Hgb 10.2 L Hct 31.2 L RDW Plt Count 57 L Seg Neuts % (Manual) 92.0 H Lymphocytes % (Manual) 6.0 L Monocytes % (Manual) Nucleated RBC % Seg Neutrophils # Seg Neutrophils # Man 21.4 H Lymphocytes # (Manual) Monocytes # (Manual) PT INR D-Dimer Heparin Anti-Xa Level POC ABG pH ABG pH 7.326 L POC ABG pCO2 POC ABG pO2 ABG pO2 109.5 H 137.4 H ABG HCO3 18.8 L 18.6 L ABG O2 Saturation ABG Base Excess -4.4 L -6.8 L ABG Hemoglobin 10.1 L 9.9 L Oxyhemoglobin Sodium Potassium Chloride Carbon Dioxide BUN Creatinine Glucose POC Glucose Lactic Acid Calcium Phosphorus Magnesium Total Bilirubin Direct Bilirubin AST ALT Alkaline Phosphatase Total Creatine Kinase CK-MB (CK-2) Troponin T C-Reactive Protein Total Protein Albumin Triglycerides LDL Cholesterol Direct HDL Cholesterol Free T4 PTH Intact Urine WBC (Auto) Urine Creatinine Salicylates Acetaminophen Crossmatch 03/26/19 03/26/19 03/26/19 23:22 Unknown Unknown WBC 19.5 H RBC 3.44 L Hgb 9.8 L Hct 29.9 L RDW Plt Count 85 L Seg Neuts % (Manual) 95.0 H Lymphocytes % (Manual) 3.0 L Monocytes % (Manual) Nucleated RBC % Seg Neutrophils # Seg Neutrophils # Man 18.5 H Lymphocytes # (Manual) 0.6 L Monocytes # (Manual) PT INR D-Dimer Heparin Anti-Xa Level POC ABG pH ABG pH POC ABG pCO2 POC ABG pO2 ABG pO2 ABG HCO3 ABG O2 Saturation ABG Base Excess ABG Hemoglobin Oxyhemoglobin Sodium 135 L Potassium 5.2 H D Chloride 92.2 L Carbon Dioxide 18 L BUN 109 H Creatinine 8.5 H Glucose 117 H POC Glucose 69 L Lactic Acid Calcium 4.5 L* D Phosphorus Magnesium Total Bilirubin Direct Bilirubin AST ALT Alkaline Phosphatase Total Creatine Kinase 4527 H CK-MB (CK-2) Troponin T C-Reactive Protein Total Protein Albumin Triglycerides LDL Cholesterol Direct HDL Cholesterol Free T4 PTH Intact Urine WBC (Auto) Urine Creatinine Salicylates Acetaminophen Crossmatch 03/27/19 03/27/19 03/27/19 04:30 04:30 09:00 WBC 19.2 H RBC 3.42 L Hgb 9.9 L Hct 30.0 L RDW Plt Count 84 L Seg Neuts % (Manual) Lymphocytes % (Manual) Monocytes % (Manual) Nucleated RBC % Seg Neutrophils # Seg Neutrophils # Man Lymphocytes # (Manual) Monocytes # (Manual) PT INR D-Dimer Heparin Anti-Xa Level POC ABG pH ABG pH POC ABG pCO2 POC ABG pO2 ABG pO2 ABG HCO3 ABG O2 Saturation ABG Base Excess ABG Hemoglobin Oxyhemoglobin Sodium 135 L Potassium Chloride 93.5 L Carbon Dioxide BUN 84 H Creatinine 7.1 H Glucose POC Glucose Lactic Acid Calcium 5.0 L* Phosphorus Magnesium Total Bilirubin Direct Bilirubin AST 78 H ALT Alkaline Phosphatase 135 H Total Creatine Kinase 4677 H CK-MB (CK-2) Troponin T C-Reactive Protein Total Protein 4.8 L Albumin 2.3 L Triglycerides 409 H LDL Cholesterol Direct HDL Cholesterol Free T4 PTH Intact Urine WBC (Auto) Urine Creatinine Salicylates Acetaminophen Crossmatch 03/27/19 03/27/19 03/27/19 12:37 14:15 14:15 WBC RBC Hgb 9.7 L Hct 29.5 L RDW Plt Count 87 L Seg Neuts % (Manual) Lymphocytes % (Manual) Monocytes % (Manual) Nucleated RBC % Seg Neutrophils # Seg Neutrophils # Man Lymphocytes # (Manual) Monocytes # (Manual) PT 15.9 H INR 1.30 H D-Dimer Heparin Anti-Xa Level POC ABG pH ABG pH POC ABG pCO2 POC ABG pO2 ABG pO2 ABG HCO3 ABG O2 Saturation ABG Base Excess ABG Hemoglobin Oxyhemoglobin Sodium Potassium Chloride Carbon Dioxide BUN Creatinine Glucose POC Glucose 129 H Lactic Acid Calcium Phosphorus Magnesium Total Bilirubin Direct Bilirubin AST ALT Alkaline Phosphatase Total Creatine Kinase CK-MB (CK-2) Troponin T C-Reactive Protein Total Protein Albumin Triglycerides LDL Cholesterol Direct HDL Cholesterol Free T4 PTH Intact Urine WBC (Auto) Urine Creatinine Salicylates Acetaminophen Crossmatch 03/27/19 03/27/19 03/27/19 18:00 19:22 19:23 WBC RBC Hgb Hct RDW Plt Count Seg Neuts % (Manual) Lymphocytes % (Manual) Monocytes % (Manual) Nucleated RBC % Seg Neutrophils # Seg Neutrophils # Man Lymphocytes # (Manual) Monocytes # (Manual) PT INR D-Dimer Heparin Anti-Xa Level < 0.10 L POC ABG pH ABG pH POC ABG pCO2 POC ABG pO2 ABG pO2 ABG HCO3 ABG O2 Saturation ABG Base Excess ABG Hemoglobin Oxyhemoglobin Sodium Potassium Chloride Carbon Dioxide BUN Creatinine Glucose POC Glucose 121 H Lactic Acid Calcium Phosphorus Magnesium Total Bilirubin Direct Bilirubin AST ALT Alkaline Phosphatase Total Creatine Kinase 4517 H CK-MB (CK-2) Troponin T C-Reactive Protein Total Protein Albumin Triglycerides LDL Cholesterol Direct HDL Cholesterol Free T4 PTH Intact Urine WBC (Auto) Urine Creatinine Salicylates Acetaminophen Crossmatch 03/27/19 03/27/19 03/28/19 22:10 23:52 03:49 WBC RBC Hgb Hct RDW Plt Count Seg Neuts % (Manual) Lymphocytes % (Manual) Monocytes % (Manual) Nucleated RBC % Seg Neutrophils # Seg Neutrophils # Man Lymphocytes # (Manual) Monocytes # (Manual) PT INR D-Dimer Heparin Anti-Xa Level POC ABG pH 7.338 L ABG pH POC ABG pCO2 33.1 L POC ABG pO2 ABG pO2 ABG HCO3 ABG O2 Saturation ABG Base Excess ABG Hemoglobin Oxyhemoglobin Sodium Potassium Chloride Carbon Dioxide BUN Creatinine Glucose POC Glucose 113 H 117 H Lactic Acid Calcium Phosphorus Magnesium Total Bilirubin Direct Bilirubin AST ALT Alkaline Phosphatase Total Creatine Kinase CK-MB (CK-2) Troponin T C-Reactive Protein Total Protein Albumin Triglycerides LDL Cholesterol Direct HDL Cholesterol Free T4 PTH Intact Urine WBC (Auto) Urine Creatinine Salicylates Acetaminophen Crossmatch 03/28/19 03/28/19 03/28/19 05:13 05:13 06:18 WBC RBC Hgb Hct RDW Plt Count Seg Neuts % (Manual) Lymphocytes % (Manual) Monocytes % (Manual) Nucleated RBC % Seg Neutrophils # Seg Neutrophils # Man Lymphocytes # (Manual) Monocytes # (Manual) PT INR D-Dimer Heparin Anti-Xa Level 0.23 L POC ABG pH ABG pH POC ABG pCO2 POC ABG pO2 ABG pO2 ABG HCO3 ABG O2 Saturation ABG Base Excess ABG Hemoglobin Oxyhemoglobin Sodium 135 L Potassium 5.5 H D Chloride 95.1 L Carbon Dioxide 16 L D BUN 129 H Creatinine 9.3 H Glucose 158 H POC Glucose 202 H Lactic Acid Calcium 4.0 L* D Phosphorus 12.40 H Magnesium Total Bilirubin Direct Bilirubin AST ALT Alkaline Phosphatase Total Creatine Kinase 4266 H CK-MB (CK-2) Troponin T C-Reactive Protein Total Protein Albumin Triglycerides LDL Cholesterol Direct HDL Cholesterol Free T4 PTH Intact Urine WBC (Auto) Urine Creatinine Salicylates Acetaminophen Crossmatch 03/28/19 03/28/19 03/28/19 08:25 10:00 12:00 WBC RBC Hgb 4.9 L* D Hct 15.4 L* D RDW Plt Count Seg Neuts % (Manual) Lymphocytes % (Manual) Monocytes % (Manual) Nucleated RBC % Seg Neutrophils # Seg Neutrophils # Man Lymphocytes # (Manual) Monocytes # (Manual) PT 17.9 H INR 1.52 H D-Dimer 4845.98 H Heparin Anti-Xa Level POC ABG pH ABG pH POC ABG pCO2 POC ABG pO2 ABG pO2 ABG HCO3 ABG O2 Saturation ABG Base Excess ABG Hemoglobin Oxyhemoglobin Sodium Potassium Chloride Carbon Dioxide BUN Creatinine Glucose POC Glucose Lactic Acid Calcium Phosphorus Magnesium Total Bilirubin Direct Bilirubin AST ALT Alkaline Phosphatase Total Creatine Kinase CK-MB (CK-2) Troponin T C-Reactive Protein Total Protein Albumin Triglycerides LDL Cholesterol Direct HDL Cholesterol Free T4 PTH Intact Urine WBC (Auto) Urine Creatinine Salicylates Acetaminophen Crossmatch See Detail 03/28/19 03/28/19 03/28/19 12:28 14:10 17:43 WBC RBC Hgb 5.9 L* Hct 18.3 L* RDW Plt Count Seg Neuts % (Manual) Lymphocytes % (Manual) Monocytes % (Manual) Nucleated RBC % Seg Neutrophils # Seg Neutrophils # Man Lymphocytes # (Manual) Monocytes # (Manual) PT INR D-Dimer Heparin Anti-Xa Level POC ABG pH ABG pH POC ABG pCO2 POC ABG pO2 ABG pO2 ABG HCO3 ABG O2 Saturation ABG Base Excess ABG Hemoglobin Oxyhemoglobin Sodium Potassium Chloride Carbon Dioxide BUN Creatinine Glucose POC Glucose 153 H 159 H Lactic Acid Calcium Phosphorus Magnesium Total Bilirubin Direct Bilirubin AST ALT Alkaline Phosphatase Total Creatine Kinase CK-MB (CK-2) Troponin T C-Reactive Protein Total Protein Albumin Triglycerides LDL Cholesterol Direct HDL Cholesterol Free T4 PTH Intact Urine WBC (Auto) Urine Creatinine Salicylates Acetaminophen Crossmatch 03/28/19 03/28/19 03/28/19 18:10 Unknown 23:59 WBC 24.8 H RBC 3.42 L Hgb 10.2 L D Hct 31.1 L D RDW 15.4 H Plt Count 54 L Seg Neuts % (Manual) 91.0 H Lymphocytes % (Manual) 8.0 L Monocytes % (Manual) Nucleated RBC % Seg Neutrophils # Seg Neutrophils # Man 22.6 H Lymphocytes # (Manual) Monocytes # (Manual) PT INR D-Dimer Heparin Anti-Xa Level POC ABG pH ABG pH POC ABG pCO2 POC ABG pO2 ABG pO2 ABG HCO3 ABG O2 Saturation ABG Base Excess ABG Hemoglobin Oxyhemoglobin Sodium Potassium 5.7 H Chloride Carbon Dioxide BUN Creatinine Glucose POC Glucose 107 H Lactic Acid Calcium Phosphorus Magnesium Total Bilirubin Direct Bilirubin AST ALT Alkaline Phosphatase Total Creatine Kinase CK-MB (CK-2) Troponin T C-Reactive Protein Total Protein Albumin Triglycerides LDL Cholesterol Direct HDL Cholesterol Free T4 PTH Intact Urine WBC (Auto) Urine Creatinine Salicylates Acetaminophen Crossmatch 03/29/19 03/29/19 03/29/19 04:29 05:46 06:22 WBC RBC Hgb 8.6 L Hct 25.7 L RDW Plt Count 93 L Seg Neuts % (Manual) Lymphocytes % (Manual) Monocytes % (Manual) Nucleated RBC % Seg Neutrophils # Seg Neutrophils # Man Lymphocytes # (Manual) Monocytes # (Manual) PT INR D-Dimer Heparin Anti-Xa Level POC ABG pH ABG pH POC ABG pCO2 32.2 L POC ABG pO2 ABG pO2 ABG HCO3 ABG O2 Saturation ABG Base Excess ABG Hemoglobin Oxyhemoglobin Sodium Potassium Chloride Carbon Dioxide BUN Creatinine Glucose POC Glucose 113 H Lactic Acid Calcium Phosphorus Magnesium Total Bilirubin Direct Bilirubin AST ALT Alkaline Phosphatase Total Creatine Kinase CK-MB (CK-2) Troponin T C-Reactive Protein Total Protein Albumin Triglycerides LDL Cholesterol Direct HDL Cholesterol Free T4 PTH Intact Urine WBC (Auto) Urine Creatinine Salicylates Acetaminophen Crossmatch 03/29/19 03/29/19 03/29/19 06:22 06:22 06:22 WBC 23.2 H RBC 2.91 L Hgb 8.6 L Hct 25.8 L RDW Plt Count 91 L Seg Neuts % (Manual) Lymphocytes % (Manual) Monocytes % (Manual) Nucleated RBC % Seg Neutrophils # Seg Neutrophils # Man Lymphocytes # (Manual) Monocytes # (Manual) PT INR D-Dimer Heparin Anti-Xa Level POC ABG pH ABG pH POC ABG pCO2 POC ABG pO2 ABG pO2 ABG HCO3 ABG O2 Saturation ABG Base Excess ABG Hemoglobin Oxyhemoglobin Sodium 133 L Potassium Chloride 93.8 L Carbon Dioxide 18 L BUN 109 H Creatinine 7.4 H Glucose 124 H POC Glucose Lactic Acid Calcium 4.6 L* Phosphorus Magnesium Total Bilirubin Direct Bilirubin AST ALT Alkaline Phosphatase Total Creatine Kinase 3401 H CK-MB (CK-2) Troponin T C-Reactive Protein Total Protein Albumin Triglycerides 309 H LDL Cholesterol Direct HDL Cholesterol Free T4 PTH Intact Urine WBC (Auto) Urine Creatinine Salicylates Acetaminophen Crossmatch Chest x-ray: pending Allied health notes reviewed: nursing
[2019-03-29 12:22] LABS: INR 1.24 (0.87-1.13)
[2019-03-29] MEDS: AMIODARONE 900 MG in DEXTROSE 5% IN WATER 482 ML IV SCH (13:04)
[2019-03-29] MEDS ORDERED: ALBUTEROL 2.5 MG/3 ML NEBU IH PRN (13:08)
[2019-03-29] MEDS ORDERED: CALCIUM CHLORIDE 1,000 MG/10 ML SDV IVP SCH (14:00)
[2019-03-29] MEDS: CEFEPIME/NS 2 GM/100 ML 2 GM/100 ML BAG IV SCH (14:03)
--- NOTE | 2019-03-29 14:41 | Consultation ---
REFERRED BY: Dr. Avila. REASON FOR CONSULTATION: Internal jugular DVT. HISTORY OF PRESENT ILLNESS: I saw the patient, a 43-year-old male, in the medical floor. The patient was admitted on 03/21/2019 after being found unresponsive by his friend. 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 The patient's friend had last seen him on 03/13/2019 and the friend came back on 03/16/2019, was found to be in respiratory distress, diaphoretic, confused, bilateral eye discharge and mention of right axillary mass. During this admission, the patient has been seen by multiple physicians, which includes ID, Nephrology ICU and GI team. The patient underwent CT chest, abdomen and pelvis, which showed air bronchograms and bowel thickening. The patient was intubated in the ER and has been on multiple pressors. During this admission, the patient was found to have internal jugular DVT on the right side. The patient was started on heparin drip for that. Overnight, he had bleeding, heparin has stopped. I have been asked to evaluate the patient. GI team has been consulted. REVIEW OF SYSTEMS: Not reliable due to the patient being intubated. No family members are available. Most of the information comes from the medical records. During this admission, the patient was treated for cardiopulmonary arrest, sepsis, septic shock, respiratory failure, encephalopathy, AFib with RVR, renal failure, thrombocytopenia, rhabdomyolysis, shock liver, enteritis. ALLERGIES: No known drug allergy. MEDICATIONS: Include amiodarone, cefepime, fentanyl, metoprolol and Zofran. PHYSICAL EXAMINATION: VITAL SIGNS: Temperature 98, pulse 87, respirations 25, BP 115/62. HEENT: Pallor present. Bleeding from oropharyngeal area. Subconjunctival edema present in the eyes. NECK: No neck lymph nodes. HEART: S1, S2. LUNGS: Clear to auscultation anteriorly. ABDOMEN: Soft. LABORATORY DATA: White cell 24, hemoglobin 4.9, MCV 90, platelet low at 54, potassium 5.5 and 9.3, calcium 4, CPK 4200. ASSESSMENT: 1. Anemia. The patient has history of bleeding. 2. Internal jugular partial thrombosis. The patient was started on heparin. This has been held. 3. Gastrointestinal bleed. 4. Elevated creatinine kinase. 5. Low calcium. 6. Thrombocytopenia. 7. Renal failure. 8. Intubation. 9. Transfusion support. 10. Leukocytosis. At this time, supportive care may help the patient. The patient's platelet has been low since admission. Urine toxicology was negative. JOB# [id number] NM/NTS
[2019-03-29] MEDS ORDERED: SODIUM CHLORIDE 0.9% 100 ML IV PRN (15:30)
[2019-03-29 15:53] LABS: Hematocrit 23.2 % (35.5-45.6); Hemoglobin 7.8 gm/dl (11.8-15.2)
[2019-03-29] MEDS: NORepinephrine/NS 4 MG-250 ML 4 MG/250 ML BAG IV SCH (18:18)
--- NOTE | 2019-03-29 18:28 | Gastroenterology Progress Note ---
Assessment and Plan 1.GI bleed - s/p EGD on 03/28/2019 with blood in the stomach but incomplete visualization and unable to find a clear source of bleeding. - No overt signs of recurrent active bleeding. - H/H slowly trended down to 7.8 today. - coming down on pressors. Off of vasopressin. Rec - cont with PPI drip. - hold anticoagulation. - will plan for EGD tomorrow if H/H continues to trend down. - monitor H/H serially and transfuse with goal above 7. Subjective Date of service: 03/29/19 Principal diagnosis: Septic Shock; Ac. hypoxemic resp failure; Renzo. PNA; Rhabdomyolysis; RUBEN Interval history: s/p EGD with blood in the stomach but unable to find clear source of bleeding. No blood per rectum or hematemesis per nursing today. Objective - Constitutional Vitals: Temp Pulse Resp BP Pulse Ox 101.2 F H 94 H 20 154/71 99 03/29/19 16:15 03/29/19 18:15 03/29/19 16:15 03/29/19 18:15 03/29/19 17:17 General appearance: no acute distress - Respiratory Respiratory effort: other (intubated) - Cardiovascular Rhythm: regular Heart Sounds: Present: S1 & S2 - Gastrointestinal General gastrointestinal: Present: soft, non-tender, non-distended - Integumentary Integumentary: Present: warm - Neurologic Neurological: other (sedated) - Labs CBC & Chem 7: 03/29/19 11:48 03/29/19 06:22 Labs: Laboratory Results - last 24 hr 03/28/19 03/28/19 03/28/19 17:43 18:10 23:59 WBC 24.8 H RBC 3.42 L Hgb 10.2 L D Hct 31.1 L D MCV 91 MCH 30 MCHC 33 RDW 15.4 H Plt Count 54 L Add Manual Diff Complete Total Counted 100 Seg Neuts % (Manual) 91.0 H Band Neutrophils % 0 Lymphocytes % (Manual) 8.0 L Reactive Lymphs % (Man) 0 Monocytes % (Manual) 1.0 Eosinophils % (Manual) 0 Basophils % (Manual) 0 Metamyelocytes % 0 Myelocytes % 0 Promyelocytes % 0 Blast Cells % 0 Nucleated RBC % Not Reportable Seg Neutrophils # Man 22.6 H Band Neutrophils # 0.0 Lymphocytes # (Manual) 2.0 Abs React Lymphs (Man) 0.0 Monocytes # (Manual) 0.2 Eosinophils # (Manual) 0.0 Basophils # (Manual) 0.0 Metamyelocytes # 0.0 Myelocytes # 0.0 Promyelocytes # 0.0 Blast Cells # 0.0 WBC Morphology Not Reportable Hypersegmented Neuts Not Reportable Hyposegmented Neuts Not Reportable Hypogranular Neuts Not Reportable Smudge Cells Not Reportable Toxic Granulation Not Reportable Toxic Vacuolation Not Reportable Dohle Bodies Not Reportable Pelger-Huet Anomaly Not Reportable Joyce Rods Not Reportable Platelet Estimate Appears decreased Clumped Platelets Not Reportable Plt Clumps, EDTA Not Reportable Large Platelets Not Reportable Giant Platelets Not Reportable Platelet Satelliting Not Reportable Plt Morphology Comment Not Reportable RBC Morphology Not Reportable Dimorphic RBCs Not Reportable Polychromasia Not Reportable Hypochromasia Not Reportable Poikilocytosis Not Reportable Anisocytosis Few Microcytosis Not Reportable Macrocytosis Not Reportable Spherocytes Not Reportable Pappenheimer Bodies Not Reportable Sickle Cells Not Reportable Target Cells Not Reportable Tear Drop Cells Not Reportable Ovalocytes Not Reportable Helmet Cells Not Reportable Shrestha-[place] Bodies Not Reportable [place] Rings Not Reportable Samantha Cells Not Reportable Bite Cells Not Reportable Crenated Cell Not Reportable Elliptocytes Not Reportable Acanthocytes (Spur) Not Reportable Rouleaux Not Reportable Hemoglobin C Crystals Not Reportable Schistocytes Not Reportable Malaria parasites Not Reportable Phil Bodies Not Reportable Hem Pathologist Commnt No PT INR POC ABG pH POC ABG pCO2 POC ABG pO2 POC ABG HCO3 POC ABG Total CO2 POC ABG O2 Sat POC ABG Base Excess FiO2 Sodium Potassium Chloride Carbon Dioxide Anion Gap BUN Creatinine Estimated GFR BUN/Creatinine Ratio Glucose POC Glucose 159 H 107 H Calcium Total Creatine Kinase Triglycerides 03/29/19 03/29/19 03/29/19 04:29 05:46 06:22 WBC RBC Hgb 8.6 L Hct 25.7 L MCV MCH MCHC RDW Plt Count 93 L Add Manual Diff Total Counted Seg Neuts % (Manual) Band Neutrophils % Lymphocytes % (Manual) Reactive Lymphs % (Man) Monocytes % (Manual) Eosinophils % (Manual) Basophils % (Manual) Metamyelocytes % Myelocytes % Promyelocytes % Blast Cells % Nucleated RBC % Seg Neutrophils # Man Band Neutrophils # Lymphocytes # (Manual) Abs React Lymphs (Man) Monocytes # (Manual) Eosinophils # (Manual) Basophils # (Manual) Metamyelocytes # Myelocytes # Promyelocytes # Blast Cells # WBC Morphology Hypersegmented Neuts Hyposegmented Neuts Hypogranular Neuts Smudge Cells Toxic Granulation Toxic Vacuolation Dohle Bodies Pelger-Huet Anomaly Joyce Rods Platelet Estimate Clumped Platelets Plt Clumps, EDTA Large Platelets Giant Platelets Platelet Satelliting Plt Morphology Comment RBC Morphology Dimorphic RBCs Polychromasia Hypochromasia Poikilocytosis Anisocytosis Microcytosis Macrocytosis Spherocytes Pappenheimer Bodies Sickle Cells Target Cells Tear Drop Cells Ovalocytes Helmet Cells Shrestha-[place] Bodies [place] Rings Barry Cells Bite Cells Crenated Cell Elliptocytes Acanthocytes (Spur) Rouleaux Hemoglobin C Crystals Schistocytes Malaria parasites Phil Bodies Hem Pathologist Commnt PT INR POC ABG pH 7.401 POC ABG pCO2 32.2 L POC ABG pO2 90 POC ABG HCO3 20.0 POC ABG Total CO2 21 POC ABG O2 Sat 97 POC ABG Base Excess -5 FiO2 35 Sodium Potassium Chloride Carbon Dioxide Anion Gap BUN Creatinine Estimated GFR BUN/Creatinine Ratio Glucose POC Glucose 113 H Calcium Total Creatine Kinase Triglycerides 03/29/19 03/29/19 03/29/19 06:22 06:22 06:22 WBC 23.2 H RBC 2.91 L Hgb 8.6 L Hct 25.8 L MCV 89 MCH 30 MCHC 33 RDW 15.1 Plt Count 91 L Add Manual Diff Total Counted Seg Neuts % (Manual) Band Neutrophils % Lymphocytes % (Manual) Reactive Lymphs % (Man) Monocytes % (Manual) Eosinophils % (Manual) Basophils % (Manual) Metamyelocytes % Myelocytes % Promyelocytes % Blast Cells % Nucleated RBC % Seg Neutrophils # Man Band Neutrophils # Lymphocytes # (Manual) Abs React Lymphs (Man) Monocytes # (Manual) Eosinophils # (Manual) Basophils # (Manual) Metamyelocytes # Myelocytes # Promyelocytes # Blast Cells # WBC Morphology Hypersegmented Neuts Hyposegmented Neuts Hypogranular Neuts Smudge Cells Toxic Granulation Toxic Vacuolation Dohle Bodies Pelger-Huet Anomaly Joyce Rods Platelet Estimate Clumped Platelets Plt Clumps, EDTA Large Platelets Giant Platelets Platelet Satelliting Plt Morphology Comment RBC Morphology Dimorphic RBCs Polychromasia Hypochromasia Poikilocytosis Anisocytosis Microcytosis Macrocytosis Spherocytes Pappenheimer Bodies Sickle Cells Target Cells Tear Drop Cells Ovalocytes Helmet Cells Shrestha-[place] Bodies [place] Rings Barry Cells Bite Cells Crenated Cell Elliptocytes Acanthocytes (Spur) Rouleaux Hemoglobin C Crystals Schistocytes Malaria parasites Phil Bodies Hem Pathologist Commnt PT INR POC ABG pH POC ABG pCO2 POC ABG pO2 POC ABG HCO3 POC ABG Total CO2 POC ABG O2 Sat POC ABG Base Excess FiO2 Sodium 133 L Potassium 5.0 Chloride 93.8 L Carbon Dioxide 18 L Anion Gap 26 BUN 109 H Creatinine 7.4 H Estimated GFR 10 BUN/Creatinine Ratio 15 Glucose 124 H POC Glucose Calcium 4.6 L* Total Creatine Kinase 3401 H Triglycerides 309 H 03/29/19 03/29/19 03/29/19 11:48 11:48 12:54 WBC RBC Hgb 7.8 L Hct 23.2 L MCV MCH MCHC RDW Plt Count Add Manual Diff Total Counted Seg Neuts % (Manual) Band Neutrophils % Lymphocytes % (Manual) Reactive Lymphs % (Man) Monocytes % (Manual) Eosinophils % (Manual) Basophils % (Manual) Metamyelocytes % Myelocytes % Promyelocytes % Blast Cells % Nucleated RBC % Seg Neutrophils # Man Band Neutrophils # Lymphocytes # (Manual) Abs React Lymphs (Man) Monocytes # (Manual) Eosinophils # (Manual) Basophils # (Manual) Metamyelocytes # Myelocytes # Promyelocytes # Blast Cells # WBC Morphology Hypersegmented Neuts Hyposegmented Neuts Hypogranular Neuts Smudge Cells Toxic Granulation Toxic Vacuolation Dohle Bodies Pelger-Huet Anomaly Joyce Rods Platelet Estimate Clumped Platelets Plt Clumps, EDTA Large Platelets Giant Platelets Platelet Satelliting Plt Morphology Comment RBC Morphology Dimorphic RBCs Polychromasia Hypochromasia Poikilocytosis Anisocytosis Microcytosis Macrocytosis Spherocytes Pappenheimer Bodies Sickle Cells Target Cells Tear Drop Cells Ovalocytes Helmet Cells Shrestha-[place] Bodies [place] Rings Samantha Cells Bite Cells Crenated Cell Elliptocytes Acanthocytes (Spur) Rouleaux Hemoglobin C Crystals Schistocytes Malaria parasites Phil Bodies Hem Pathologist Commnt PT 15.3 H INR 1.24 H POC ABG pH POC ABG pCO2 POC ABG pO2 POC ABG HCO3 POC ABG Total CO2 POC ABG O2 Sat POC ABG Base Excess FiO2 Sodium Potassium Chloride Carbon Dioxide Anion Gap BUN Creatinine Estimated GFR BUN/Creatinine Ratio Glucose POC Glucose 100 Calcium Total Creatine Kinase Triglycerides 03/29/19 18:24 WBC RBC Hgb Hct MCV MCH MCHC RDW Plt Count Add Manual Diff Total Counted Seg Neuts % (Manual) Band Neutrophils % Lymphocytes % (Manual) Reactive Lymphs % (Man) Monocytes % (Manual) Eosinophils % (Manual) Basophils % (Manual) Metamyelocytes % Myelocytes % Promyelocytes % Blast Cells % Nucleated RBC % Seg Neutrophils # Man Band Neutrophils # Lymphocytes # (Manual) Abs React Lymphs (Man) Monocytes # (Manual) Eosinophils # (Manual) Basophils # (Manual) Metamyelocytes # Myelocytes # Promyelocytes # Blast Cells # WBC Morphology Hypersegmented Neuts Hyposegmented Neuts Hypogranular Neuts Smudge Cells Toxic Granulation Toxic Vacuolation Dohle Bodies Pelger-Huet Anomaly Joyce Rods Platelet Estimate Clumped Platelets Plt Clumps, EDTA Large Platelets Giant Platelets Platelet Satelliting Plt Morphology Comment RBC Morphology Dimorphic RBCs Polychromasia Hypochromasia Poikilocytosis Anisocytosis Microcytosis Macrocytosis Spherocytes Pappenheimer Bodies Sickle Cells Target Cells Tear Drop Cells Ovalocytes Helmet Cells Shrestha-[place] Bodies [place] Rings Samantha Cells Bite Cells Crenated Cell Elliptocytes Acanthocytes (Spur) Rouleaux Hemoglobin C Crystals Schistocytes Malaria parasites Phil Bodies Hem Pathologist Commnt PT INR POC ABG pH POC ABG pCO2 POC ABG pO2 POC ABG HCO3 POC ABG Total CO2 POC ABG O2 Sat POC ABG Base Excess FiO2 Sodium Potassium Chloride Carbon Dioxide Anion Gap BUN Creatinine Estimated GFR BUN/Creatinine Ratio Glucose POC Glucose 122 H Calcium Total Creatine Kinase Triglycerides
[2019-03-29] MEDS: ACETAMINOPHEN 650 MG RECT SUPP PR PRN (20:39)
[2019-03-29] MEDS: CALCIUM CHLORIDE 1,000 MG/10 ML SYRINGE IV SCH (23:39)
[2019-03-30 01:16] LABS: Hemoglobin 7.6 gm/dl (11.8-15.2)
[2019-03-30] MEDS: fentaNYL DRIP Premix 2,000 MCG/100 ML BAG IV SCH ×5 (03:14→21:37)
[2019-03-30] MEDS: CALCIUM CHLORIDE 1,000 MG/10 ML SYRINGE IV SCH ×2 (03:14→09:35)
[2019-03-30] MEDS: NORepinephrine/NS 4 MG-250 ML 4 MG/250 ML BAG IV SCH (04:21)
[2019-03-30 05:14] LABS: Calcium 6.1 mg/dL (8.4-10.2)
--- NOTE | 2019-03-30 07:45 | Hem/Onc Progress Note ---
Assessment and Plan 1. Anemia. The patient has history of bleeding. 2. Internal jugular partial thrombosis. The patient was started on heparin. This has been held due to bleeding 3. Gastrointestinal bleed. 4. h/o Elevated creatinine kinase. 5. h/o Low calcium. 6. h/o Thrombocytopenia. 7. h/o Renal failure. 8. Intubation. 9. Transfusion support. 10. Leukocytosis. At this time, supportive care may help the patient. The patient's platelet has been low since admission. Urine toxicology was negative. awake - follows command - on vent off anticoagulation d/w dr Rojas GI - Patient Problems (1) DVT (deep venous thrombosis) Current Visit: Yes Status: Acute Subjective Date of service: 03/30/19 Principal diagnosis: anemia - IJ dvt - bleeding Interval history: no obvious bleeding Objective - Exam Narrative Exam: Pain - intubated General appearance - awake - on vent Performance status complete dependence Eyes - no icterus ENT - some oropharyngeal bleeding LNs cervical not palpable Neck - no LN Respiratory Normal Breath sounds - CTA anteriorly CVS S1 S2 + Extremities edema + General GI Soft Rectal deferred male - deferred Skin warm Musculoskeletal moving rt toes Neurologically awake - nods to questions - Constitutional Vitals: Last Vital Signs Temp 99.8 F H 03/30/19 03:03 Pulse 89 03/30/19 06:30 Resp 20 03/30/19 06:30 BP 84/44 03/30/19 06:30 Pulse Ox 100 03/30/19 06:30 - Labs Lab Results: Laboratory Results - last 24 hr 03/29/19 03/29/19 03/29/19 06:22 11:48 11:48 Hgb 7.8 L Hct 23.2 L PT 15.3 H INR 1.24 H POC ABG pH POC ABG pCO2 POC ABG pO2 POC ABG HCO3 POC ABG Total CO2 POC ABG O2 Sat POC ABG Base Excess FiO2 Sodium Potassium Chloride Carbon Dioxide Anion Gap BUN Creatinine Estimated GFR BUN/Creatinine Ratio Glucose POC Glucose Calcium Total Creatine Kinase 3401 H Random Vancomycin 03/29/19 03/29/19 03/29/19 12:54 18:24 23:20 Hgb Hct PT INR POC ABG pH POC ABG pCO2 POC ABG pO2 POC ABG HCO3 POC ABG Total CO2 POC ABG O2 Sat POC ABG Base Excess FiO2 Sodium Potassium Chloride Carbon Dioxide Anion Gap BUN Creatinine Estimated GFR BUN/Creatinine Ratio Glucose POC Glucose 100 122 H 90 Calcium Total Creatine Kinase Random Vancomycin 03/30/19 03/30/19 03/30/19 00:40 04:31 04:31 Hgb 7.6 L Hct 23.0 L PT INR POC ABG pH POC ABG pCO2 POC ABG pO2 POC ABG HCO3 POC ABG Total CO2 POC ABG O2 Sat POC ABG Base Excess FiO2 Sodium 139 Potassium 4.9 Chloride 98.2 Carbon Dioxide 22 Anion Gap 24 BUN 79 H Creatinine 6.4 H Estimated GFR 11 BUN/Creatinine Ratio 12 Glucose 99 POC Glucose Calcium 6.1 L D Total Creatine Kinase Random Vancomycin 16.6 03/30/19 03/30/19 05:04 05:16 Hgb Hct PT INR POC ABG pH 7.346 L POC ABG pCO2 43.0 POC ABG pO2 62 L POC ABG HCO3 23.5 POC ABG Total CO2 25 POC ABG O2 Sat 90 POC ABG Base Excess -2 FiO2 50 Sodium Potassium Chloride Carbon Dioxide Anion Gap BUN Creatinine Estimated GFR BUN/Creatinine Ratio Glucose POC Glucose 100 Calcium Total Creatine Kinase Random Vancomycin Medications & Allergies - Medications Allergies/Adverse Reactions: Allergies No Known Allergies Allergy (Unverified 03/16/19 17:17) Home Medications: Home Medications Medication Instructions Recorded Confirmed Last Taken Type Unobtainable 03/18/19 03/18/19 Unknown History Active Medications: Generic Name Dose Route Start Last Admin Trade Name Freq PRN Reason Stop Dose Admin Acetaminophen 650 mg 03/26/19 22:15 03/27/19 21:23 Tylenol PO 650 mg Q4H PRN Administration Pain, Mild (1-3), [id number]> Acetaminophen 650 mg 03/29/19 19:51 03/29/19 20:39 Tylenol UT 650 mg Q4H PRN Administration Fever > 100.5 Albuterol 2.5 mg 03/29/19 13:08 Proventil IH Q4HRT PRN Shortness Of Breath Lipase/Protease/Amylase 1 each 03/17/19 14:45 Pancrekarly Purcell 10,500 Unit FEEDTUBE PRN PRN For Clogged Feeding Tube Calcium Chloride 2,000 mg 03/29/19 22:00 03/30/19 03:14 Calcium Chloride IV 2,000 mg Q6H PAOLO Administration Dextrose 50 gm 03/19/19 18:39 03/26/19 23:26 D50w (25gm) Vial IV 50 gm PRN PRN Administration Hypoglycemia Fentanyl 50 mcg 03/26/19 12:00 03/27/19 13:47 Sublimaze IV 50 mcg Q1H PRN Administration Pain, Moderate (4-6) Hydrophilic Ointment 1 applic 03/16/19 15:50 Vaseline Lip Therapy TP Q2HR PRN Dry Lips Phenylephrine HCl 100 mg/ 100 mls @ 3 mls/hr 03/17/19 02:30 03/19/19 18:48 Sodium Chloride IV Infused TITR PAOLO Titration Protocol 50 MCG/MIN Fentanyl Citrate 2,000 mcg in 100 mls @ 7.85 mls/hr 03/26/19 12:00 03/30/19 03:14 Fentanyl Drip Premix IV 2 mcg/kg/hr TITR PAOLO 15.7 mls/hr Administration Protocol 1 MCG/KG/HR Cefepime HCl 2 gm in 100 mls @ 200 mls/hr 03/27/19 14:00 03/29/19 14:03 Maxipime/Ns 2 Gm/100 Ml IV 200 mls/hr Q24H PAOLO Administration Protocol Norepinephrine 4 mg in 250 mls @ 7.5 mls/hr 03/27/19 22:16 03/30/19 04:21 Levophed Drip 4 Mg/Ns 250 Ml IV 2 mcg/min TITR PAOLO 7.5 mls/hr Administration Protocol 2 MCG/MIN Pantoprazole Sodium 80 mg/ 100 mls @ 10 mls/hr 03/28/19 09:30 03/28/19 09:30 Sodium Chloride IV 8 mg/hr DIRECT PAOLO 10 mls/hr Administration 8 MG/HR Vasopressin 20 unit/ Sodium 101 mls @ 9.09 mls/hr 03/28/19 09:00 03/28/19 15: 38 Chloride IV 0 units/min TITR PAOLO 0 mls/hr Titration Protocol 0.03 UNITS/MIN Fluconazole 200 mg in 100 mls @ 100 mls/hr 03/28/19 10:00 03/29/19 10:36 Diflucan IV 100 mls/hr Q24HR PAOLO Administration Protocol Amiodarone HCl 900 mg/ 500 mls @ 33.333 mls/hr 03/28/19 17:00 03/29/19 13:04 Dextrose IV 0.5 mg/min DIRECT PAOLO 16.667 mls/hr Administration Protocol 1 MG/MIN Sodium Chloride 100 mls @ 999 mls/hr 03/29/19 15:30 Nacl 0.9% IV NEYMAR PRN Hypotension Lorazepam 2 mg 03/26/19 11:54 03/29/19 11:15 Ativan IV 2 mg Q1H PRN Administration Agitation Metoprolol Tartrate 25 mg 03/28/19 14:00 03/29/19 18:07 Lopressor PO Not Given TID PAOLO Multi-Ingred Cream/Lotion/Oil/Oint 1 applic 03/16/19 15:50 03/19/19 20:10 Artificial Tears Ophth Oint OU 1 applic Q4HR PRN Administration Dry Eye(s) Ondansetron HCl 4 mg 03/16/19 22:21 Zofran IV Q8H PRN Nausea And Vomiting Paricalcitol 2 mcg 03/30/19 10:00 Zemplar IV DAILY PAOLO Simple Syrup 15 ml 03/17/19 14:45 03/26/19 23:19 Simple Syrup FEEDTUBE 15 ml PRN PRN Administration Hypoglycemia Simple Syrup 30 ml 03/17/19 14:45 Simple Syrup FEEDTUBE PRN PRN Hypoglycemia Sodium Bicarbonate 325 mg 03/17/19 14:45 Sodium Bicarbonate FEEDTUBE PRN PRN For Clogged Feeding Tube
[2019-03-30] MEDS: METOPROLOL TARTRATE 25 MG TAB PO SCH ×4 (08:20→21:55)
[2019-03-30 08:56] LABS: Mean Corpuscular HGB Conc 33 % (32-34); Mean Corpuscular Volume 90 fl (84-94); Platelet Count 135 K/mm3 (140-440); Red Blood Count 2.33 M/mm3 (3.65-5.03); Red Cell Distribution Width 15.6 % (13.2-15.2)
[2019-03-30] MEDS ORDERED: METOCLOPRAMIDE 10 MG/2 ML INJ IV NR (09:00)
--- NOTE | 2019-03-30 09:27 | Progress Note ---
Assessment and Plan S/p cardiopulmonary arrest Upon admission on 03/16/2019, pt initially in SVT 250s and received 50 J synchronized shock, rhythm deteriorated to a polymorphic V. tach and then monomorphic V. tach and then patient was defibrillated at 325 J. Patient rhythm then became sinus. Pt was subsequently intubated in ED. Echo showed EF 40-45%, impaired relaxation. Leroy negative for AMI. ECGs with no acute ischemic changes. Plan for ischemic evaluation if/when medically stabilized. Acute respiratory failure Intubated. Management per pulmonary. Transient SVT Torsades sparkle pointes / Ventricular tachycardia / Prolonged QT interval QT 413, QTc 508 this AM. Plan for ischemic evaluation if/when medically stabilized. Paroxysmal atrial fibrillation with RVR Pt remains NPO. Cont IV amio. No systemic AC at this time regarding AFib in setting of anemia, thrombocytopenia, suspected GI bleed. Cardiomyopathy EF 40-45% Pt NPO. No BB or ACEI/ARB at this time in setting of NPO status, hypotension and acute renal failure. Plan for ischemic evaluation if/when medically stabilized. AMS Neurology following. Head CT with no definite acute findings. AMS secondary to metabolic encephalopathy per neurology. Septic shock / probable aspiration PNA / ? meningitis / right axillary cellulitis ID following. Per ID, ?Infectious etiology v/s possibility of Neuroleptic Malignant Syndrome given psych history, high fever of 105F and extremely elevated CPK of >100K. Pt remains febrile. Blood cultures negative to date. Abx per ID team. Unable to perform lumbar puncture at this time in setting of thrombocytopenia. Acute renal failure / Rhabdomyolysis Initiated on HD. Nephrology following. Hyperkalemia / Hyponatremia / Hypocalcemia Electrolyte management per nephrology. Enteritis Abdomen CT showed moderately dilated small bowel bowel loops in the mid to upper abdomen anteriorly with mild associated bowel wall thickening. Localized enteritis and small bowel ischemia should be considered. General surgery following. Per general surgery, no evidence of peritonitis an d no definitive indication for surgical intervention. Pt currently tolerating low volume TF infusion. Elevated LFTs / elevated INR ? shock liver. LFTs improving. Nonocclusive thrombus in right internal jugular vein S/p heparin gtt. GI bleed S/p heparin gtt. S/p PRBC tx. GI team following. S/p EGD yesterday. Unable to complete bleeding scan as pt is currently too unstable. Severe anemia / Thrombocytopenia S/p heparin gtt for nonocclusive thrombus in right IJ. Improved s/p PRBC tx. Hematology following. Elevated DDimer H/o psych disorder Obesity The patient has been seen in conjunction with Dr. Rubalcava who agrees with the assessment and plan of care. Subjective Date of service: 03/30/19 Principal diagnosis: anemia - IJ dvt - bleeding Interval history: pt remains intubated, moving arms and legs, no purposeful response noted, sedated, on levophed. in SR on telemetry. amio gtt infusing. no family at bedside. Objective Last Vital Signs Temp 98.8 F 03/30/19 08:00 Pulse 89 03/30/19 08:13 Resp 24 03/30/19 08:00 BP 120/62 03/30/19 08:13 Pulse Ox 100 03/30/19 08:13 - Physical Examination General: Other (intubated, sedated) HEENT: Positive: PERRL Neck: Positive: neck supple Cardiac: Positive: Reg Rate and Rhythm, S1/S2 Lungs: Positive: Decreased Breath Sounds Neuro: Positive: Other (intubated) Abdomen: Positive: Unremarkable /Rectal: Other (deferred) Skin: Positive: Clear Musculoskeletal: Decreased Range of Motion Extremities: Present: lower extr. pulses (weak, thready ) - Labs and Meds Coagulation 03/29/19 Range/Units 11:48 PT 15.3 H (12.2-14.9) Sec. INR 1.24 H (0.87-1.13) CBC 03/29/19 03/30/19 03/30/19 Range/Units 11:48 00:40 08:45 WBC 14.3 H (4.5-11.0) K/mm3 RBC 2.33 L (3.65-5.03) M/mm3 Hgb 7.8 L 7.6 L 7.0 L (11.8-15.2) gm/dl Hct 23.2 L 23.0 L 21.0 L (35.5-45.6) % Plt Count 135 L (140-440) K/mm3 Comprehensive Metabolic Panel 03/30/19 Range/Units 04:31 Sodium 139 (137-145) mmol/L Potassium 4.9 (3.6-5.0) mmol/L Chloride 98.2 (98-107) mmol/L Carbon Dioxide 22 (22-30) mmol/L BUN 79 H (9-20) mg/dL Creatinine 6.4 H (0.8-1.5) mg/dL Glucose 99 (75-100) mg/dL Calcium 6.1 L D (8.4-10.2) mg/dL - Imaging and Cardiology Echo: report reviewed ( EF 40-45%, impaired relaxation. ) - Telemetry EKG Rhythm: Sinus Rhythm - Allied health notes Allied health notes reviewed: RT
[2019-03-30] MEDS: PARICALCITOL 2 MCG/1 ML INJ IV SCH (09:34)
[2019-03-30] MEDS: FLUCONAZOLE 200 MG 200 MG/100 ML BAG IV SCH (09:35)
--- NOTE | 2019-03-30 11:03 | Progress Note ---
Assessment and Plan Cultures: 03/16/2019 sputum: salivary contamination 03/16/2019 Blood culture: no growth 03/17/2019 Urine culture no growth 03/17/2019 throat culture: no growth 03/26/2019 Blood culture: no growth so far 03/27/2019 Blood culture negative. Assessment: 43y/o male with possible psych history admitted on 03/16/2019 with: 1) Septic shock: pressors requirement is down. Only on one pressor. Placed on multiple pressors on 03/28 due to acute GI bleed and severe Hg drop at 4.4. Noted fever 105 after right IJ exchanged overwire on 03/27, fever is better; leukocytosis improving. Fever source is unclear - suspect IJ DVT ? thrombophlebitis, other ?NMS ?sinusitis, ?drug fever. Repeat blood culture no growth so far. Brain MRI shows no acute intracranial abnormality, mild nonspecific chronic white matter changes, fluid throughout the sinuses and mastoid air cells. Venous US + right IJ DVT. Initial septic shock - Possible Infectious etiology v/s possibility of Neuroleptic Malignant Syndrome given psych history, high fever of 105F and extremely elevated CPK of >100K. Unclear if he was on any psych med. From ID standpoint, we will continue broad coverage for acute bacterial meningitis, tick borne illness, aspiration pneumonia. Blood culture negative UA with mild pyuria. HIV rapid negative. Strep A rapid ag negative. No obvious infectious source identified yet. 2) Probable aspiration pneumonia: Already completed adequate abx. 3) Acute respiratory failure: on the vent. Improving. 4) ?Right axillary edema: no abscess, US no collection seen 5) Acute encephalopathy: improving, communicating. CT head showed diffuse cerebral edema ?artifact. But too unstable for LP at this time. Low suspicion for HSV meningoencephalitis given the degree of his initial shock and clinical status. Given nationwide acyclovir shortage and low suspicion, would not recommend IV Ganciclovir at this time. 6) Acute renal failure: renally dosing all abx, now on HD 7) Elevated LFTs/shock liver: also likely elevated from Rhabdomyolysis. Viral hepatitis panel negative. LFTs continue to improve. 8) Thrombocytopenia: multifactorial - better 9) Rhabdomyolysis: CK continues to improve 10) ?Enteritis: per CT ? no collection no perforation no obvious ischemic bowel. Gen. Surg following Recommendations: stop fluconazole - no Martha growth in blood culture continue vancomycin, cefepime renally adjusted for now avoid drugs that can cause NMS Wound care team consult - multiple skin abrasions Discussed with nursing staff Will follow. Risa Bryant MD Infectious Diseases [employer] [facility] ([facility]) M [phone] O [phone] Subjective Date of service: 03/30/19 Principal diagnosis: anemia - IJ dvt - bleeding Interval history: Remains on one pressor, more alert, communicating by nodding, fever trending down. Still intubated. Objective - Exam Narrative Exam: General appearance: alert intubated opening eyes following commands Eyes: pupils dannie contracted poorly reactive, no jaundice HENT: Atraumatic; oropharynx with ETT/OGT Neck: no JVD Lungs:distant BS CV: RRR Abdomen: Soft, non-tender Extremities: marked dannie leg edema/arm edema Skin:no rash, +scrotal edema Psych: follows commands no agitated Neuro: follows commands no agitated Right IJ cath - Constitutional Vitals: Vital Signs Temp Pulse Resp BP Pulse Ox 98.8 F 89 24 120/62 100 03/30/19 08:00 03/30/19 08:13 03/30/19 08:00 03/30/19 08:13 03/30/19 08:13 Temperature -Last 24 Hours Temperature 98.8 F Temperature 99.8 F Temperature 99.9 F Temperature 100.6 F Temperature 100.6 F Temperature 101.2 F Temperature 101.2 F Temperature 100.3 F - Labs CBC & Chem 7: 03/30/19 08:45 03/30/19 04:31 Labs: Abnormal lab results 03/29/19 03/29/19 03/29/19 Range/Units 11:48 11:48 18:24 WBC (4.5-11.0) K/mm3 RBC (3.65-5.03) M/mm3 Hgb 7.8 L (11.8-15.2) gm/dl Hct 23.2 L (35.5-45.6) % RDW (13.2-15.2) % Plt Count (140-440) K/mm3 PT 15.3 H (12.2-14.9) Sec. INR 1.24 H (0.87-1.13) POC ABG pH (7.35-7.45) POC ABG pO2 (80-105) BUN (9-20) mg/dL Creatinine (0.8-1.5) mg/dL POC Glucose 122 H (70-105) Calcium (8.4-10.2) mg/dL 03/30/19 03/30/19 03/30/19 Range/Units 00:40 04:31 05:04 WBC (4.5-11.0) K/mm3 RBC (3.65-5.03) M/mm3 Hgb 7.6 L (11.8-15.2) gm/dl Hct 23.0 L (35.5-45.6) % RDW (13.2-15.2) % Plt Count (140-440) K/mm3 PT (12.2-14.9) Sec. INR (0.87-1.13) POC ABG pH 7.346 L (7.35-7.45) POC ABG pO2 62 L (80-105) BUN 79 H (9-20) mg/dL Creatinine 6.4 H (0.8-1.5) mg/dL POC Glucose (70-105) Calcium 6.1 L D (8.4-10.2) mg/dL 03/30/19 Range/Units 08:45 WBC 14.3 H (4.5-11.0) K/mm3 RBC 2.33 L (3.65-5.03) M/mm3 Hgb 7.0 L (11.8-15.2) gm/dl Hct 21.0 L (35.5-45.6) % RDW 15.6 H (13.2-15.2) % Plt Count 135 L (140-440) K/mm3 PT (12.2-14.9) Sec. INR (0.87-1.13) POC ABG pH (7.35-7.45) POC ABG pO2 (80-105) BUN (9-20) mg/dL Creatinine (0.8-1.5) mg/dL POC Glucose (70-105) Calcium (8.4-10.2) mg/dL
--- NOTE | 2019-03-30 11:48 | Progress Note ---
Assessment and Plan 1. Acute kidney injury: Vasomotor RUBEN in the setting of shock / volume depletion / Rhabdo. Baseline renal function is unknown. Patient remain anuric / oliguric. CT abdomen was negative for obstructive nephropathy. Monitor renal function. Renal prognosis is guarded. Avoid nephrotoxic agents. Meds dosage based on GFR. Patient was started on hemodialysis on 03/18/19 due to worsening metabolic acidosis and hyperkalemia. Hemodialysis: 03/18, 03/19, 03/20, 03/22, 03/23, 03/24, 03/26, 03/28, 03/29. 2. FEN: Hyperkalemia, s/p HD. Hyponatremia, monitor. Metabolic acidosis, monitor. Volume overload, UF with HD as tolerated. Hypocalcemia, likely multifactorial. Replete Calcium. Monitor lytes. 3. Septic shock: Followed by ID. Currently on Levophed. 4. Rhabdomyolysis: Follow CK level. 5. SVT / V.tach: Followed by Cards. 6. Respiratory failure: On vent. 7. Severe anemia: S/p PRBC. 8. Elevated transaminases. 9. Encephalopathy. Examination: General appearance: well-developed, appears stated age, obese, intubated, on vent HEENT: Atraumatic EYES: Pupils reacting to light Neck: supple Respiratory: coarse breath sounds Cardiology: regular, S1S2 heard, no murmur Gastrointestinal: no tenderness, obese, BS heard, scrotal edema noted Integumentary: no rash noted Neurologic: opens eyes Ext: trace edema of all 4 extremities Hemodialysis access: R IJ temp catheter Subjective Date of service: 03/30/19 Principal diagnosis: anemia - IJ dvt - bleeding Interval history: Patient was seen and examined at the bedside. Remain on the vent. Objective - Vital Signs Vital signs: Vital Signs - 12hr 03/30/19 03/30/19 03/30/19 00:00 00:30 01:00 Temperature Pulse Rate 146 H 123 H 139 H Pulse Rate [ 90 Apical] Respiratory 20 20 19 Rate Blood Pressure 126/64 119/49 105/54 O2 Sat by Pulse 99 96 94 Oximetry 03/30/19 03/30/19 03/30/19 01:30 02:00 02:30 Temperature Pulse Rate 129 H 125 H 122 H Pulse Rate [ Apical] Respiratory 20 21 20 Rate Blood Pressure 107/44 107/42 104/53 O2 Sat by Pulse 95 97 94 Oximetry 03/30/19 03/30/19 03/30/19 03:00 03:03 03:30 Temperature 99.8 F H Pulse Rate 130 H 89 Pulse Rate [ Apical] Respiratory 20 20 Rate Blood Pressure 114/50 127/61 O2 Sat by Pulse 97 99 Oximetry 03/30/19 03/30/19 03/30/19 04:00 04:30 04:55 Temperature Pulse Rate 94 H 97 H 98 H Pulse Rate [ 95 H Apical] Respiratory 18 Rate Blood Pressure 150/84 126/68 117/56 O2 Sat by Pulse 90 Oximetry 03/30/19 03/30/19 03/30/19 05:00 05:30 06:00 Temperature Pulse Rate 94 H 93 H 90 Pulse Rate [ Apical] Respiratory 21 20 20 Rate Blood Pressure 127/61 92/48 97/49 O2 Sat by Pulse 100 Oximetry 03/30/19 03/30/19 03/30/19 06:30 07:00 07:30 Temperature Pulse Rate 89 88 90 Pulse Rate [ Apical] Respiratory 20 23 20 Rate Blood Pressure 84/44 99/48 112/58 O2 Sat by Pulse 100 100 100 Oximetry 03/30/19 03/30/19 08:00 08:13 Temperature 98.8 F Pulse Rate 87 89 Pulse Rate [ Apical] Respiratory 24 Rate Blood Pressure 104/52 120/62 O2 Sat by Pulse 100 100 Oximetry - Lab 03/30/19 22:43 03/30/19 04:31 Most recent lab results ABG pH 7.326 pH Units (7.350-7.450) L 03/26/19 04:30 ABG pCO2 36.4 mm Hg 03/26/19 04:30 ABG pO2 137.4 mm Hg (80.0-90.0) H 03/26/19 04:30 ABG HCO3 18.6 mmol/L (20.0-26.0) L 03/26/19 04:30 ABG O2 Saturation 98.6 % (95.0-99.0) 03/26/19 04:30 Calcium 6.1 mg/dL (8.4-10.2) L D 03/30/19 04:31 Phosphorus 12.40 mg/dL (2.5-4.5) H 03/28/19 05:13 Magnesium 2.40 mg/dL (1.7-2.3) H 03/18/19 08:40 Urine Creatinine 106.6 mg/dL (0.1-20.0) H 03/17/19 16:05 Urine Sodium 95 mmol/L 03/17/19 16:05 Medications & Allergies - Medications Allergies/Adverse Reactions: Allergies No Known Allergies Allergy (Unverified 03/16/19 17:17) Home Medications: Home Medications Medication Instructions Recorded Confirmed Last Taken Type Unobtainable 03/18/19 03/18/19 Unknown History Active Medications: Generic Name Dose Route Start Last Admin Trade Name Freq PRN Reason Stop Dose Admin Acetaminophen 650 mg 03/26/19 22:15 03/27/19 21:23 Tylenol PO 650 mg Q4H PRN Administration Pain, Mild (1-3), [id number]> Acetaminophen 650 mg 03/29/19 19:51 03/29/19 20:39 Tylenol MI 650 mg Q4H PRN Administration Fever > 100.5 Albuterol 2.5 mg 03/29/19 13:08 Proventil IH Q4HRT PRN Shortness Of Breath Lipase/Protease/Amylase 1 each 03/17/19 14:[address] 10,500 Unit FEEDTUBE PRN PRN For Clogged Feeding Tube Dextrose 50 gm 03/19/19 18:39 03/26/19 23:26 D50w (25gm) Vial IV 50 gm PRN PRN Administration Hypoglycemia Fentanyl 50 mcg 03/26/19 12:00 03/27/19 13:47 Sublimaze IV 50 mcg Q1H PRN Administration Pain, Moderate (4-6) Hydrophilic Ointment 1 applic 03/16/19 15:50 Vaseline Lip Therapy TP Q2HR PRN Dry Lips Phenylephrine HCl 100 mg/ 100 mls @ 3 mls/hr 03/17/19 02:30 03/19/19 18:48 Sodium Chloride IV Infused TITR PAOLO Titration Protocol 50 MCG/MIN Fentanyl Citrate 2,000 mcg in 100 mls @ 7.85 mls/hr 03/26/19 12:00 03/30/19 08:38 Fentanyl Drip Premix IV 3 mcg/kg/hr TITR PAOLO 23.55 mls/hr Administration Protocol 1 MCG/KG/HR Cefepime HCl 2 gm in 100 mls @ 200 mls/hr 03/27/19 14:00 03/29/19 14:03 Maxipime/Ns 2 Gm/100 Ml IV 200 mls/hr Q24H PAOLO Administration Protocol Norepinephrine 4 mg in 250 mls @ 7.5 mls/hr 03/27/19 22:16 03/30/19 07:56 Levophed Drip 4 Mg/Ns 250 Ml IV 3 mcg/min TITR PAOLO 11.25 mls/hr Titration Protocol 2 MCG/MIN Pantoprazole Sodium 80 mg/ 100 mls @ 10 mls/hr 03/28/19 09:30 03/28/19 09:30 Sodium Chloride IV 8 mg/hr DIRECT PAOLO 10 mls/hr Administration 8 MG/HR Vasopressin 20 unit/ Sodium 101 mls @ 9.09 mls/hr 03/28/19 09:00 03/28/19 15 :38 Chloride IV 0 units/min TITR PAOLO 0 mls/hr Titration Protocol 0.03 UNITS/MIN Fluconazole 200 mg in 100 mls @ 100 mls/hr 03/28/19 10:00 03/30/19 09:35 Diflucan IV 100 mls/hr Q24HR PAOLO Administration Protocol Sodium Chloride 100 mls @ 999 mls/hr 03/29/19 15:30 Nacl 0.9% IV NEYMAR PRN Hypotension Lorazepam 2 mg 03/26/19 11:54 03/29/19 11:15 Ativan IV 2 mg Q1H PRN Administration Agitation Metoprolol Tartrate 25 mg 03/28/19 14:00 03/30/19 08:20 Lopressor PO Not Given TID PAOLO Multi-Ingred Cream/Lotion/Oil/Oint 1 applic 03/16/19 15:50 03/19/19 20:10 Artificial Tears Ophth Oint OU 1 applic Q4HR PRN Administration Dry Eye(s) Ondansetron HCl 4 mg 03/16/19 22:21 Zofran IV Q8H PRN Nausea And Vomiting Paricalcitol 2 mcg 03/30/19 10:00 03/30/19 09:34 Zemplar IV 2 mcg DAILY PAOLO Administration Simple Syrup 15 ml 03/17/19 14:45 03/26/19 23:19 Simple Syrup FEEDTUBE 15 ml PRN PRN Administration Hypoglycemia Simple Syrup 30 ml 03/17/19 14:45 Simple Syrup FEEDTUBE PRN PRN Hypoglycemia Sodium Bicarbonate 325 mg 03/17/19 14:45 Sodium Bicarbonate FEEDTUBE PRN PRN For Clogged Feeding Tube
[2019-03-30] MEDS ORDERED: SODIUM CHLORIDE 0.9% 1000 ML 1,000 ML IV SCH (13:00)
--- NOTE | 2019-03-30 13:24 | Progress Note ---
Assessment and Plan Severe sepsis with shock. Right axilla abscess versus localized pannus/fatty collection. Acute hypoxemic respiratory failure, on mechanical ventilator support. Likely aspiration pneumonia, bilateral. Morbid obesity. Rhabdomyolysis. Acute kidney injury. Leukocytosis. Morbid obesity. Metabolic acidosis. Lactic acidosis. Hypomagnesemia. Elevated serum transaminases/possible shock liver. 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 - CXR in am - begin TPN in am - discontinue CaCl pushes now (serum Ca2+ at 6.1) - get LFT's re: amiodarone drip and to correct calcium for albumin - get ionized calcium level - prn albuterol treatments - reduced set rate on MVS to 20/min - increased peep to 8 cm H2O - prn tylenol suppositories for fevers - keep on PRVC/AC for now - continue to wean FiO2 for sats > 90% - continue to wean Levophed for target MAP > 65 mmHg - continue amiodarone drip for A-fib - NPO for now (TPN shortly if remains NPO) - continue HD/UF per nephrology prescription - VAP bundle addressed - continue daily SAT's and SBT assessment as tolerated - target sedation for RASS 0 to -1 - prn analgesia per CPOT score - continue HD/UF per nephrology prescription and for toxin and volume control - prn supportive blood transfusions to keep serum Hb > 7.0 - Monitor hemodynamics closely - Transfuse PRBC's to keep HgB > 7g/dL - continue empiric broad spectrum antiinfective's per ID recommendations (de- escalate based on clinical and microbiologic data) - continue mobility protocols and off loading as tolerated for pressure ulcer prophylaxis - continue to avoid nephrotoxins, adjust all medications for GFR and CRCL - continue GI & VTE prophylaxis with - accuchecks with glycemic control per SSI for target BG of 140-180 mg/dl acutely - continue other care per attending / other consultants ... re-evaluate in am & prn CONDITION: CRITICAL PROGNOSIS: VERY GUARDED CODE STATUS: FULL CODE Discussed extensively with RT/RN and care team in ICU IDT rounds The high probability of a clinically significant, sudden or life threatening deterioration of the [respiratory, renal and Cardiac] system's' required my full and direct attention, intervention and personal management. The aggregate critical care time was 38 minutes. This time is in addition to time spent perf orming reported procedures but includes the following: [x] Data Review and interpretation [x] Patient assessment and monitoring of vital signs [x] Documentation [x] Medication orders and management Subjective Date of service: 03/30/19 Principal diagnosis: Septic Shock; Ac. hypoxemic resp failure; Renzo. PNA; Rhab domyolysis; RUBEN Interval history: Patient is seen today for: Severe sepsis with shock; Acute hypoxemic respiratory failure; Aspiration pneumonia; Morbid obesity; Rhabdomyolysis; Acute kidney injury; Morbid obesity; Elevated serum transaminases/possible shock liver; Acute encephalopathy (Toxic/Met) Seen and examined at bedside; 24hour events reviewed; nursing and respiratory care staff consulted; no adverse overnight events reported to me; resting peacefully in bed; Hb trending down and now at 7.0; tentatively for EGD today; responds appropriately; denies acute chest pains; Afebrile; still with paroxysmal A-fib Objective Vital Signs - 12hr 03/30/19 03/30/19 03/30/19 01:30 02:00 02:30 Temperature Pulse Rate 129 H 125 H 122 H Pulse Rate [ Apical] Respiratory 20 21 20 Rate Blood Pressure 107/44 107/42 104/53 O2 Sat by Pulse 95 97 94 Oximetry 03/30/19 03/30/19 03/30/19 03:00 03:03 03:30 Temperature 99.8 F H Pulse Rate 130 H 89 Pulse Rate [ Apical] Respiratory 20 20 Rate Blood Pressure 114/50 127/61 O2 Sat by Pulse 97 99 Oximetry 03/30/19 03/30/19 03/30/19 04:00 04:30 04:55 Temperature Pulse Rate 94 H 97 H 98 H Pulse Rate [ 95 H Apical] Respiratory 18 Rate Blood Pressure 150/84 126/68 117/56 O2 Sat by Pulse 90 Oximetry 03/30/19 03/30/19 03/30/19 05:00 05:30 06:00 Temperature Pulse Rate 94 H 93 H 90 Pulse Rate [ Apical] Respiratory 21 20 20 Rate Blood Pressure 127/61 92/48 97/49 O2 Sat by Pulse 100 Oximetry 03/30/19 03/30/19 03/30/19 06:30 07:00 07:30 Temperature Pulse Rate 89 88 90 Pulse Rate [ Apical] Respiratory 20 23 20 Rate Blood Pressure 84/44 99/48 112/58 O2 Sat by Pulse 100 100 100 Oximetry 03/30/19 03/30/19 03/30/19 08:00 08:13 08:30 Temperature 98.8 F Pulse Rate 87 89 87 Pulse Rate [ Apical] Respiratory 24 20 Rate Blood Pressure 104/52 120/62 115/58 O2 Sat by Pulse 100 100 100 Oximetry 03/30/19 03/30/19 03/30/19 09:00 09:30 10:00 Temperature Pulse Rate 89 87 132 H Pulse Rate [ Apical] Respiratory 11 L 12 14 Rate Blood Pressure 127/70 127/70 127/70 O2 Sat by Pulse 100 100 99 Oximetry 03/30/19 03/30/19 03/30/19 10:30 11:00 11:30 Temperature Pulse Rate 113 H 92 H 89 Pulse Rate [ Apical] Respiratory 21 20 19 Rate Blood Pressure 122/53 133/48 129/47 O2 Sat by Pulse 98 99 100 Oximetry 03/30/19 03/30/19 03/30/19 12:00 12:30 12:31 Temperature Pulse Rate 88 88 89 Pulse Rate [ Apical] Respiratory 20 20 Rate Blood Pressure 132/47 138/52 138/52 O2 Sat by Pulse 100 100 100 Oximetry Constitutional: no acute distress, other (middle aged morbidly obese CM, normoc ephalic with incresed respiratory effort on MVS) Eyes: icteric ENT: oropharynx moist, other (ETT 23-24 cm PEDRO, ulcers over his upper lip) Neck: supple, no lymphadenopathy, no JVD, other (large neck circumference) Effort: mildly labored Ascultation: Bilateral: diminished breath sounds, rales Percussion: Bilateral: not dull Cardiovascular: regular rate and rhythm, other ( S1,S2) Gastrointestinal: hypoactive bowel sounds, soft, non-tender, non-distended, other (obese) Integumentary: normal, other (blisters with some weeping over the extremities) Extremities: no cyanosis, pink and warm, pulses normal, no ischemia or petechiae Neurologic: normal mental status, non-focal exam (grossly), pupils equal and round, CN II-XII normal, other (obeys simple commands when SAT was done) Psychiatric: mood appropriate, affect normal CBC and BMP: 03/31/19 04:44 03/31/19 04:44 ABG, PT/INR, D-dimer: ABG POC ABG pH 7.346 (7.35-7.45) L 03/30/19 05:04 ABG pH 7.326 pH Units (7.350-7.450) L 03/26/19 04:30 POC ABG pCO2 43.0 (35-45) 03/30/19 05:04 ABG pCO2 36.4 mm Hg 03/26/19 04:30 POC ABG pO2 62 (80-105) L 03/30/19 05:04 ABG pO2 137.4 mm Hg (80.0-90.0) H 03/26/19 04:30 POC ABG HCO3 23.5 (22-26 mml/L) 03/30/19 05:04 POC ABG Total CO2 25 (23-27mmol/L) 03/30/19 05:04 POC ABG O2 Sat 90 03/30/19 05:04 ABG O2 Saturation 98.6 % (95.0-99.0) 03/26/19 04:30 PT/INR, D-dimer PT 15.3 Sec. (12.2-14.9) H 03/29/19 11:48 INR 1.24 (0.87-1.13) H 03/29/19 11:48 D-Dimer 4845.98 ng/mlDDU (0-234) H 03/28/19 12:00 Abnormal lab findings: Abnormal Labs 03/16/19 03/16/19 03/16/19 15:32 16:03 16:05 WBC 27.0 H RBC 5.55 H Hgb 15.7 H Hct 47.1 H RDW Plt Count 75 L Seg Neuts % (Manual) 85.0 H Lymphocytes % (Manual) 2.0 L Monocytes % (Manual) Nucleated RBC % Seg Neutrophils # Seg Neutrophils # Man 23.0 H Lymphocytes # (Manual) 0.5 L Monocytes # (Manual) PT INR D-Dimer Heparin Anti-Xa Level POC ABG pH ABG pH POC ABG pCO2 POC ABG pO2 ABG pO2 ABG HCO3 ABG O2 Saturation ABG Base Excess ABG Hemoglobin Oxyhemoglobin Sodium 127 L Potassium Chloride 87.8 L Carbon Dioxide 17 L BUN 49 H Creatinine 5.8 H Glucose 150 H POC Glucose 118 H Lactic Acid Calcium 6.6 L Phosphorus Magnesium 1.10 L Total Bilirubin Direct Bilirubin AST ALT Alkaline Phosphatase Total Creatine Kinase 25068 H CK-MB (CK-2) Troponin T C-Reactive Protein Total Protein Albumin Triglycerides LDL Cholesterol Direct HDL Cholesterol Free T4 PTH Intact Urine WBC (Auto) Urine Creatinine Salicylates Acetaminophen Crossmatch 03/16/19 03/16/19 03/16/19 16:59 17:05 17:05 WBC RBC Hgb Hct RDW Plt Count Seg Neuts % (Manual) Lymphocytes % (Manual) Monocytes % (Manual) Nucleated RBC % Seg Neutrophils # Seg Neutrophils # Man Lymphocytes # (Manual) Monocytes # (Manual) PT INR D-Dimer Heparin Anti-Xa Level POC ABG pH 7.297 L ABG pH POC ABG pCO2 33.0 L POC ABG pO2 ABG pO2 ABG HCO3 ABG O2 Saturation ABG Base Excess ABG Hemoglobin Oxyhemoglobin Sodium Potassium Chloride Carbon Dioxide BUN Creatinine Glucose POC Glucose Lactic Acid Calcium Phosphorus Magnesium Total Bilirubin Direct Bilirubin AST ALT Alkaline Phosphatase Total Creatine Kinase 31651 H CK-MB (CK-2) 83.1 H Troponin T C-Reactive Protein Total Protein Albumin Triglycerides LDL Cholesterol Direct HDL Cholesterol Free T4 0.72 L PTH Intact Urine WBC (Auto) Urine Creatinine Salicylates Acetaminophen Crossmatch 03/16/19 03/16/19 03/16/19 17:05 17:05 17:05 WBC RBC Hgb Hct RDW Plt Count Seg Neuts % (Manual) Lymphocytes % (Manual) Monocytes % (Manual) Nucleated RBC % Seg Neutrophils # Seg Neutrophils # Man Lymphocytes # (Manual) Monocytes # (Manual) PT INR D-Dimer Heparin Anti-Xa Level POC ABG pH ABG pH POC ABG pCO2 POC ABG pO2 ABG pO2 ABG HCO3 ABG O2 Saturation ABG Base Excess ABG Hemoglobin Oxyhemoglobin Sodium Potassium Chloride Carbon Dioxide BUN Creatinine Glucose POC Glucose Lactic Acid 5.10 H* Calcium Phosphorus Magnesium Total Bilirubin Direct Bilirubin AST ALT Alkaline Phosphatase Total Creatine Kinase CK-MB (CK-2) Troponin T C-Reactive Protein Total Protein Albumin Triglycerides LDL Cholesterol Direct HDL Cholesterol Free T4 PTH Intact Urine WBC (Auto) Urine Creatinine Salicylates < 0.3 L Acetaminophen < 5.0 L Crossmatch 03/16/19 03/16/19 03/16/19 17:05 17:05 20:35 WBC RBC Hgb Hct RDW Plt Count Seg Neuts % (Manual) Lymphocytes % (Manual) Monocytes % (Manual) Nucleated RBC % Seg Neutrophils # Seg Neutrophils # Man Lymphocytes # (Manual) Monocytes # (Manual) PT 15.9 H INR 1.30 H D-Dimer Heparin Anti-Xa Level POC ABG pH ABG pH POC ABG pCO2 POC ABG pO2 ABG pO2 ABG HCO3 ABG O2 Saturation ABG Base Excess ABG Hemoglobin Oxyhemoglobin Sodium Potassium Chloride Carbon Dioxide BUN Creatinine Glucose POC Glucose Lactic Acid 3.30 H* Calcium Phosphorus Magnesium Total Bilirubin 6.20 H Direct Bilirubin 5.9 H AST 800 H ALT 120 H Alkaline Phosphatase Total Creatine Kinase CK-MB (CK-2) Troponin T C-Reactive Protein Total Protein 4.4 L Albumin 2.4 L Triglycerides LDL Cholesterol Direct HDL Cholesterol Free T4 PTH Intact Urine WBC (Auto) Urine Creatinine Salicylates Acetaminophen Crossmatch 03/16/19 03/16/19 03/16/19 21:45 22:32 Unknown WBC RBC Hgb Hct RDW Plt Count Seg Neuts % (Manual) Lymphocytes % (Manual) Monocytes % (Manual) Nucleated RBC % Seg Neutrophils # Seg Neutrophils # Man Lymphocytes # (Manual) Monocytes # (Manual) PT INR D-Dimer Heparin Anti-Xa Level POC ABG pH ABG pH POC ABG pCO2 POC ABG pO2 ABG pO2 ABG HCO3 ABG O2 Saturation ABG Base Excess ABG Hemoglobin Oxyhemoglobin Sodium Potassium Chloride Carbon Dioxide BUN Creatinine Glucose POC Glucose Lactic Acid 3.30 H* 3.00 H* Calcium Phosphorus Magnesium Total Bilirubin Direct Bilirubin AST ALT Alkaline Phosphatase Total Creatine Kinase CK-MB (CK-2) Troponin T 0.047 H D C-Reactive Protein Total Protein Albumin Triglycerides 395 H LDL Cholesterol Direct 10 L HDL Cholesterol 7 L Free T4 PTH Intact Urine WBC (Auto) Urine Creatinine Salicylates Acetaminophen Crossmatch 03/17/19 03/17/19 03/17/19 03:45 03:45 03:45 WBC RBC Hgb Hct RDW Plt Count Seg Neuts % (Manual) Lymphocytes % (Manual) Monocytes % (Manual) Nucleated RBC % Seg Neutrophils # Seg Neutrophils # Man Lymphocytes # (Manual) Monocytes # (Manual) PT INR D-Dimer Heparin Anti-Xa Level POC ABG pH ABG pH POC ABG pCO2 POC ABG pO2 ABG pO2 ABG HCO3 ABG O2 Saturation ABG Base Excess ABG Hemoglobin Oxyhemoglobin Sodium 131 L Potassium Chloride 88.9 L Carbon Dioxide BUN 53 H Creatinine 7.1 H Glucose POC Glucose Lactic Acid 4.10 H* Calcium 5.4 L* D Phosphorus 7.30 H Magnesium 1.60 L Total Bilirubin 5.90 H Direct Bilirubin AST 801 H ALT 109 H Alkaline Phosphatase Total Creatine Kinase 41283 H 58599 H CK-MB (CK-2) 41.5 H Troponin T 0.054 H C-Reactive Protein Total Protein 4.5 L Albumin 2.0 L Triglycerides LDL Cholesterol Direct HDL Cholesterol Free T4 PTH Intact Urine WBC (Auto) Urine Creatinine Salicylates Acetaminophen Crossmatch 03/17/19 03/17/19 03/17/19 05:47 07:16 07:16 WBC RBC Hgb Hct RDW Plt Count Seg Neuts % (Manual) Lymphocytes % (Manual) Monocytes % (Manual) Nucleated RBC % Seg Neutrophils # Seg Neutrophils # Man Lymphocytes # (Manual) Monocytes # (Manual) PT INR D-Dimer Heparin Anti-Xa Level POC ABG pH 7.193 L ABG pH POC ABG pCO2 45.2 H POC ABG pO2 65 L ABG pO2 ABG HCO3 ABG O2 Saturation ABG Base Excess ABG Hemoglobin Oxyhemoglobin Sodium Potassium Chloride Carbon Dioxide BUN Creatinine Glucose POC Glucose Lactic Acid 5.50 H* Calcium Phosphorus Magnesium Total Bilirubin Direct Bilirubin AST ALT Alkaline Phosphatase Total Creatine Kinase 67680 H CK-MB (CK-2) 54.3 H Troponin T 0.058 H C-Reactive Protein Total Protein Albumin Triglycerides LDL Cholesterol Direct HDL Cholesterol Free T4 PTH Intact Urine WBC (Auto) Urine Creatinine Salicylates Acetaminophen Crossmatch 03/17/19 03/17/19 03/17/19 11:52 12:51 13:01 WBC RBC Hgb Hct RDW Plt Count Seg Neuts % (Manual) Lymphocytes % (Manual) Monocytes % (Manual) Nucleated RBC % Seg Neutrophils # Seg Neutrophils # Man Lymphocytes # (Manual) Monocytes # (Manual) PT INR D-Dimer Heparin Anti-Xa Level POC ABG pH 7.154 L ABG pH POC ABG pCO2 34.3 L POC ABG pO2 73 L ABG pO2 ABG HCO3 ABG O2 Saturation ABG Base Excess ABG Hemoglobin Oxyhemoglobin Sodium Potassium Chloride Carbon Dioxide BUN Creatinine Glucose POC Glucose 60 L Lactic Acid 8.20 H* Calcium Phosphorus Magnesium Total Bilirubin Direct Bilirubin AST ALT Alkaline Phosphatase Total Creatine Kinase CK-MB (CK-2) Troponin T C-Reactive Protein Total Protein Albumin Triglycerides LDL Cholesterol Direct HDL Cholesterol Free T4 PTH Intact Urine WBC (Auto) Urine Creatinine Salicylates Acetaminophen Crossmatch 03/17/19 03/17/19 03/17/19 14:37 14:37 14:37 WBC 29.3 H RBC Hgb Hct RDW 15.8 H Plt Count 45 L Seg Neuts % (Manual) 81.0 H Lymphocytes % (Manual) 1.0 L Monocytes % (Manual) 15.0 H Nucleated RBC % Seg Neutrophils # Seg Neutrophils # Man 23.7 H Lymphocytes # (Manual) 0.3 L Monocytes # (Manual) 4.4 H PT INR D-Dimer Heparin Anti-Xa Level POC ABG pH ABG pH POC ABG pCO2 POC ABG pO2 ABG pO2 ABG HCO3 ABG O2 Saturation ABG Base Excess ABG Hemoglobin Oxyhemoglobin Sodium Potassium Chloride Carbon Dioxide BUN Creatinine Glucose POC Glucose Lactic Acid 4.90 H* Calcium Phosphorus Magnesium Total Bilirubin Direct Bilirubin AST ALT Alkaline Phosphatase Total Creatine Kinase CK-MB (CK-2) Troponin T C-Reactive Protein 24.90 H Total Protein Albumin Triglycerides LDL Cholesterol Direct HDL Cholesterol Free T4 PTH Intact Urine WBC (Auto) Urine Creatinine Salicylates Acetaminophen Crossmatch 03/17/19 03/17/19 03/17/19 16:05 16:05 17:02 WBC RBC Hgb Hct RDW Plt Count Seg Neuts % (Manual) Lymphocytes % (Manual) Monocytes % (Manual) Nucleated RBC % Seg Neutrophils # Seg Neutrophils # Man Lymphocytes # (Manual) Monocytes # (Manual) PT INR D-Dimer Heparin Anti-Xa Level POC ABG pH 7.183 L ABG pH POC ABG pCO2 POC ABG pO2 65 L ABG pO2 ABG HCO3 ABG O2 Saturation ABG Base Excess ABG Hemoglobin Oxyhemoglobin Sodium Potassium Chloride Carbon Dioxide BUN Creatinine Glucose POC Glucose Lactic Acid Calcium Phosphorus Magnesium Total Bilirubin Direct Bilirubin AST ALT Alkaline Phosphatase Total Creatine Kinase CK-MB (CK-2) Troponin T C-Reactive Protein Total Protein Albumin Triglycerides LDL Cholesterol Direct HDL Cholesterol Free T4 PTH Intact Urine WBC (Auto) 30.0 H Urine Creatinine 106.6 H Salicylates Acetaminophen Crossmatch 03/18/19 03/18/19 03/18/19 05:12 05:16 05:53 WBC RBC Hgb Hct RDW Plt Count Seg Neuts % (Manual) Lymphocytes % (Manual) Monocytes % (Manual) Nucleated RBC % Seg Neutrophils # Seg Neutrophils # Man Lymphocytes # (Manual) Monocytes # (Manual) PT INR D-Dimer Heparin Anti-Xa Level POC ABG pH 7.257 L ABG pH POC ABG pCO2 31.6 L POC ABG pO2 69 L ABG pO2 ABG HCO3 ABG O2 Saturation ABG Base Excess ABG Hemoglobin Oxyhemoglobin Sodium Potassium Chloride Carbon Dioxide BUN Creatinine Glucose POC Glucose 141 H Lactic Acid 5.00 H* Calcium Phosphorus Magnesium Total Bilirubin Direct Bilirubin AST ALT Alkaline Phosphatase Total Creatine Kinase CK-MB (CK-2) Troponin T C-Reactive Protein Total Protein Albumin Triglycerides LDL Cholesterol Direct HDL Cholesterol Free T4 PTH Intact Urine WBC (Auto) Urine Creatinine Salicylates Acetaminophen Crossmatch 03/18/19 03/18/19 03/18/19 06:57 08:40 08:40 WBC 31.7 H RBC Hgb Hct RDW 15.5 H Plt Count 35 L Seg Neuts % (Manual) Lymphocytes % (Manual) Monocytes % (Manual) Nucleated RBC % Seg Neutrophils # Seg Neutrophils # Man Lymphocytes # (Manual) Monocytes # (Manual) PT INR D-Dimer Heparin Anti-Xa Level POC ABG pH ABG pH POC ABG pCO2 POC ABG pO2 ABG pO2 ABG HCO3 ABG O2 Saturation ABG Base Excess ABG Hemoglobin Oxyhemoglobin Sodium 132 L Potassium 5.5 H D Chloride 88.5 L Carbon Dioxide 18 L BUN 71 H Creatinine 8.1 H Glucose 205 H POC Glucose Lactic Acid 5.00 H* Calcium 4.1 L* D Phosphorus Magnesium 2.40 H Total Bilirubin 7.50 H Direct Bilirubin AST 1088 H ALT 159 H Alkaline Phosphatase 190 H Total Creatine Kinase 317511 H CK-MB (CK-2) Troponin T C-Reactive Protein Total Protein 4.7 L Albumin 1.8 L Triglycerides LDL Cholesterol Direct HDL Cholesterol Free T4 PTH Intact Urine WBC (Auto) Urine Creatinine Salicylates Acetaminophen Crossmatch 03/18/19 03/18/19 03/18/19 12:33 12:50 13:19 WBC RBC Hgb Hct RDW Plt Count Seg Neuts % (Manual) Lymphocytes % (Manual) Monocytes % (Manual) Nucleated RBC % Seg Neutrophils # Seg Neutrophils # Man Lymphocytes # (Manual) Monocytes # (Manual) PT INR D-Dimer Heparin Anti-Xa Level POC ABG pH 7.282 L ABG pH POC ABG pCO2 POC ABG pO2 67 L ABG pO2 ABG HCO3 ABG O2 Saturation ABG Base Excess ABG Hemoglobin Oxyhemoglobin Sodium Potassium Chloride Carbon Dioxide BUN Creatinine Glucose POC Glucose 129 H Lactic Acid 3.30 H* Calcium Phosphorus Magnesium Total Bilirubin Direct Bilirubin AST ALT Alkaline Phosphatase Total Creatine Kinase CK-MB (CK-2) Troponin T C-Reactive Protein Total Protein Albumin Triglycerides LDL Cholesterol Direct HDL Cholesterol Free T4 PTH Intact Urine WBC (Auto) Urine Creatinine Salicylates Acetaminophen Crossmatch 03/18/19 03/18/19 03/18/19 13:19 16:50 18:11 WBC RBC Hgb Hct RDW Plt Count Seg Neuts % (Manual) Lymphocytes % (Manual) Monocytes % (Manual) Nucleated RBC % Seg Neutrophils # Seg Neutrophils # Man Lymphocytes # (Manual) Monocytes # (Manual) PT INR D-Dimer Heparin Anti-Xa Level POC ABG pH ABG pH POC ABG pCO2 POC ABG pO2 59 L ABG pO2 ABG HCO3 ABG O2 Saturation ABG Base Excess ABG Hemoglobin Oxyhemoglobin Sodium Potassium Chloride Carbon Dioxide BUN Creatinine Glucose POC Glucose 151 H Lactic Acid Calcium 4.2 L* Phosphorus Magnesium Total Bilirubin Direct Bilirubin AST ALT Alkaline Phosphatase Total Creatine Kinase 569288 H CK-MB (CK-2) Troponin T C-Reactive Protein Total Protein Albumin Triglycerides LDL Cholesterol Direct HDL Cholesterol Free T4 PTH Intact Urine WBC (Auto) Urine Creatinine Salicylates Acetaminophen Crossmatch 03/18/19 03/18/19 03/19/19 18:20 23:39 01:42 WBC RBC Hgb Hct RDW Plt Count Seg Neuts % (Manual) Lymphocytes % (Manual) Monocytes % (Manual) Nucleated RBC % Seg Neutrophils # Seg Neutrophils # Man Lymphocytes # (Manual) Monocytes # (Manual) PT INR D-Dimer Heparin Anti-Xa Level POC ABG pH 7.345 L ABG pH 7.285 L POC ABG pCO2 POC ABG pO2 59 L ABG pO2 44.0 L ABG HCO3 ABG O2 Saturation 70.9 L ABG Base Excess -5.7 L ABG Hemoglobin 11.9 L Oxyhemoglobin 69.6 L Sodium Potassium Chloride Carbon Dioxide BUN Creatinine Glucose POC Glucose 152 H Lactic Acid Calcium Phosphorus Magnesium Total Bilirubin Direct Bilirubin AST ALT Alkaline Phosphatase Total Creatine Kinase CK-MB (CK-2) Troponin T C-Reactive Protein Total Protein Albumin Triglycerides LDL Cholesterol Direct HDL Cholesterol Free T4 PTH Intact Urine WBC (Auto) Urine Creatinine Salicylates Acetaminophen Crossmatch 03/19/19 03/19/19 03/19/19 04:00 04:00 05:35 WBC 36.5 H RBC Hgb Hct RDW 15.8 H Plt Count 35 L Seg Neuts % (Manual) Lymphocytes % (Manual) Monocytes % (Manual) Nucleated RBC % Seg Neutrophils # Seg Neutrophils # Man Lymphocytes # (Manual) Monocytes # (Manual) PT INR D-Dimer Heparin Anti-Xa Level POC ABG pH ABG pH 7.265 L POC ABG pCO2 POC ABG pO2 ABG pO2 35.4 L* ABG HCO3 ABG O2 Saturation 54.4 L ABG Base Excess -6.7 L ABG Hemoglobin 12.9 L Oxyhemoglobin 53.4 L Sodium 132 L Potassium 5.7 H Chloride 89.8 L Carbon Dioxide 19 L BUN 62 H Creatinine 6.4 H Glucose 151 H POC Glucose Lactic Acid Calcium 5.2 L* D Phosphorus Magnesium Total Bilirubin 7.80 H Direct Bilirubin AST 682 H ALT 130 H Alkaline Phosphatase 167 H Total Creatine Kinase CK-MB (CK-2) Troponin T C-Reactive Protein Total Protein 4.8 L Albumin 2.3 L Triglycerides LDL Cholesterol Direct HDL Cholesterol Free T4 PTH Intact Urine WBC (Auto) Urine Creatinine Salicylates Acetaminophen Crossmatch 03/19/19 03/19/19 03/19/19 05:49 09:16 09:50 WBC RBC Hgb Hct RDW Plt Count Seg Neuts % (Manual) Lymphocytes % (Manual) Monocytes % (Manual) Nucleated RBC % Seg Neutrophils # Seg Neutrophils # Man Lymphocytes # (Manual) Monocytes # (Manual) PT INR D-Dimer Heparin Anti-Xa Level POC ABG pH 7.222 L ABG pH POC ABG pCO2 56.6 H POC ABG pO2 ABG pO2 ABG HCO3 ABG O2 Saturation ABG Base Excess ABG Hemoglobin Oxyhemoglobin Sodium Potassium Chloride Carbon Dioxide BUN Creatinine Glucose POC Glucose 154 H Lactic Acid 2.70 H* Calcium Phosphorus Magnesium Total Bilirubin Direct Bilirubin AST ALT Alkaline Phosphatase Total Creatine Kinase CK-MB (CK-2) Troponin T C-Reactive Protein Total Protein Albumin Triglycerides LDL Cholesterol Direct HDL Cholesterol Free T4 PTH Intact Urine WBC (Auto) Urine Creatinine Salicylates Acetaminophen Crossmatch 03/19/19 03/19/19 03/19/19 09:50 11:28 17:58 WBC RBC Hgb Hct RDW Plt Count Seg Neuts % (Manual) Lymphocytes % (Manual) Monocytes % (Manual) Nucleated RBC % Seg Neutrophils # Seg Neutrophils # Man Lymphocytes # (Manual) Monocytes # (Manual) PT INR D-Dimer Heparin Anti-Xa Level POC ABG pH 7.250 L ABG pH POC ABG pCO2 52.6 H POC ABG pO2 ABG pO2 ABG HCO3 ABG O2 Saturation ABG Base Excess ABG Hemoglobin Oxyhemoglobin Sodium Potassium Chloride Carbon Dioxide BUN Creatinine Glucose POC Glucose 160 H Lactic Acid Calcium Phosphorus Magnesium Total Bilirubin Direct Bilirubin AST ALT Alkaline Phosphatase Total Creatine Kinase 70533 H CK-MB (CK-2) Troponin T C-Reactive Protein Total Protein Albumin Triglycerides LDL Cholesterol Direct HDL Cholesterol Free T4 PTH Intact Urine WBC (Auto) Urine Creatinine Salicylates Acetaminophen Crossmatch 03/19/19 03/19/19 03/20/19 19:48 21:03 02:16 WBC RBC Hgb Hct RDW Plt Count Seg Neuts % (Manual) Lymphocytes % (Manual) Monocytes % (Manual) Nucleated RBC % Seg Neutrophils # Seg Neutrophils # Man Lymphocytes # (Manual) Monocytes # (Manual) PT INR D-Dimer Heparin Anti-Xa Level POC ABG pH 7.279 L ABG pH POC ABG pCO2 50.3 H POC ABG pO2 129 H ABG pO2 ABG HCO3 ABG O2 Saturation ABG Base Excess ABG Hemoglobin Oxyhemoglobin Sodium Potassium Chloride Carbon Dioxide BUN Creatinine Glucose POC Glucose 119 H 119 H Lactic Acid Calcium Phosphorus Magnesium Total Bilirubin Direct Bilirubin AST ALT Alkaline Phosphatase Total Creatine Kinase CK-MB (CK-2) Troponin T C-Reactive Protein Total Protein Albumin Triglycerides LDL Cholesterol Direct HDL Cholesterol Free T4 PTH Intact Urine WBC (Auto) Urine Creatinine Salicylates Acetaminophen Crossmatch 03/20/19 03/20/19 03/20/19 04:23 05:05 09:30 WBC 36.3 H RBC Hgb Hct RDW 15.5 H Plt Count 29 L Seg Neuts % (Manual) Lymphocytes % (Manual) Monocytes % (Manual) Nucleated RBC % Seg Neutrophils # Seg Neutrophils # Man Lymphocytes # (Manual) Monocytes # (Manual) PT INR D-Dimer Heparin Anti-Xa Level POC ABG pH ABG pH POC ABG pCO2 POC ABG pO2 280 H ABG pO2 ABG HCO3 ABG O2 Saturation ABG Base Excess ABG Hemoglobin Oxyhemoglobin Sodium Potassium Chloride Carbon Dioxide BUN Creatinine Glucose POC Glucose 115 H Lactic Acid Calcium Phosphorus Magnesium Total Bilirubin Direct Bilirubin AST ALT Alkaline Phosphatase Total Creatine Kinase CK-MB (CK-2) Troponin T C-Reactive Protein Total Protein Albumin Triglycerides LDL Cholesterol Direct HDL Cholesterol Free T4 PTH Intact Urine WBC (Auto) Urine Creatinine Salicylates Acetaminophen Crossmatch 03/20/19 03/20/19 03/20/19 09:30 09:30 11:34 WBC RBC Hgb Hct RDW Plt Count Seg Neuts % (Manual) Lymphocytes % (Manual) Monocytes % (Manual) Nucleated RBC % Seg Neutrophils # Seg Neutrophils # Man Lymphocytes # (Manual) Monocytes # (Manual) PT INR D-Dimer Heparin Anti-Xa Level POC ABG pH ABG pH POC ABG pCO2 POC ABG pO2 ABG pO2 ABG HCO3 ABG O2 Saturation ABG Base Excess ABG Hemoglobin Oxyhemoglobin Sodium 131 L Potassium Chloride 92.3 L Carbon Dioxide 20 L BUN 68 H Creatinine 6.1 H Glucose 164 H POC Glucose 141 H Lactic Acid Calcium 5.3 L* Phosphorus Magnesium Total Bilirubin 9.50 H Direct Bilirubin AST 381 H ALT 116 H Alkaline Phosphatase 255 H Total Creatine Kinase 30687 H CK-MB (CK-2) Troponin T C-Reactive Protein Total Protein 5.1 L Albumin 2.3 L Triglycerides LDL Cholesterol Direct HDL Cholesterol Free T4 PTH Intact Urine WBC (Auto) Urine Creatinine Salicylates Acetaminophen Crossmatch 03/20/19 03/20/19 03/20/19 14:41 14:45 18:50 WBC RBC Hgb Hct RDW Plt Count Seg Neuts % (Manual) Lymphocytes % (Manual) Monocytes % (Manual) Nucleated RBC % Seg Neutrophils # Seg Neutrophils # Man Lymphocytes # (Manual) Monocytes # (Manual) PT INR D-Dimer Heparin Anti-Xa Level POC ABG pH ABG pH POC ABG pCO2 POC ABG pO2 ABG pO2 ABG HCO3 ABG O2 Saturation ABG Base Excess ABG Hemoglobin Oxyhemoglobin Sodium Potassium Chloride Carbon Dioxide BUN Creatinine Glucose POC Glucose 117 H Lactic Acid 2.90 H* Calcium Phosphorus Magnesium Total Bilirubin Direct Bilirubin AST ALT Alkaline Phosphatase Total Creatine Kinase CK-MB (CK-2) Troponin T C-Reactive Protein 13.30 H Total Protein Albumin Triglycerides LDL Cholesterol Direct HDL Cholesterol Free T4 PTH Intact Urine WBC (Auto) Urine Creatinine Salicylates Acetaminophen Crossmatch 09/24/19 09/25/19 09/25/19 21:55 04:26 04:26 WBC 37.8 H RBC Hgb Hct RDW 15.4 H Plt Count 36 L Seg Neuts % (Manual) 93.0 H Lymphocytes % (Manual) 3.0 L Monocytes % (Manual) Nucleated RBC % 1.0 H Seg Neutrophils # 34.6 H Seg Neutrophils # Man 35.2 H Lymphocytes # (Manual) 1.1 L Monocytes # (Manual) PT INR D-Dimer Heparin Anti-Xa Level POC ABG pH ABG pH POC ABG pCO2 POC ABG pO2 ABG pO2 ABG HCO3 ABG O2 Saturation ABG Base Excess ABG Hemoglobin Oxyhemoglobin Sodium 131 L Potassium Chloride 90.7 L Carbon Dioxide 21 L BUN 69 H Creatinine 5.7 H Glucose 170 H POC Glucose 128 H Lactic Acid Calcium 6.1 L D Phosphorus Magnesium Total Bilirubin 9.50 H Direct Bilirubin AST 308 H ALT 124 H Alkaline Phosphatase 327 H Total Creatine Kinase 76620 H CK-MB (CK-2) Troponin T C-Reactive Protein Total Protein 5.7 L Albumin 2.6 L Triglycerides LDL Cholesterol Direct HDL Cholesterol Free T4 PTH Intact Urine WBC (Auto) Urine Creatinine Salicylates Acetaminophen Crossmatch 03/21/19 03/21/19 03/21/19 05:17 05:39 08:29 WBC RBC Hgb Hct RDW Plt Count Seg Neuts % (Manual) Lymphocytes % (Manual) Monocytes % (Manual) Nucleated RBC % Seg Neutrophils # Seg Neutrophils # Man Lymphocytes # (Manual) Monocytes # (Manual) PT INR D-Dimer Heparin Anti-Xa Level POC ABG pH ABG pH POC ABG pCO2 POC ABG pO2 209 H ABG pO2 ABG HCO3 ABG O2 Saturation ABG Base Excess ABG Hemoglobin Oxyhemoglobin Sodium Potassium Chloride Carbon Dioxide BUN Creatinine Glucose POC Glucose 145 H Lactic Acid Calcium Phosphorus Magnesium Total Bilirubin Direct Bilirubin AST ALT Alkaline Phosphatase Total Creatine Kinase 69167 H CK-MB (CK-2) Troponin T C-Reactive Protein Total Protein Albumin Triglycerides LDL Cholesterol Direct HDL Cholesterol Free T4 PTH Intact Urine WBC (Auto) Urine Creatinine Salicylates Acetaminophen Crossmatch 03/21/19 03/21/19 03/21/19 08:29 11:43 12:00 WBC RBC Hgb Hct RDW Plt Count Seg Neuts % (Manual) Lymphocytes % (Manual) Monocytes % (Manual) Nucleated RBC % Seg Neutrophils # Seg Neutrophils # Man Lymphocytes # (Manual) Monocytes # (Manual) PT INR D-Dimer Heparin Anti-Xa Level POC ABG pH ABG pH POC ABG pCO2 POC ABG pO2 ABG pO2 ABG HCO3 ABG O2 Saturation ABG Base Excess ABG Hemoglobin Oxyhemoglobin Sodium Potassium Chloride Carbon Dioxide BUN Creatinine Glucose POC Glucose 123 H Lactic Acid 2.60 H* 2.20 H* Calcium Phosphorus Magnesium Total Bilirubin Direct Bilirubin AST ALT Alkaline Phosphatase Total Creatine Kinase CK-MB (CK-2) Troponin T C-Reactive Protein Total Protein Albumin Triglycerides LDL Cholesterol Direct HDL Cholesterol Free T4 PTH Intact Urine WBC (Auto) Urine Creatinine Salicylates Acetaminophen Crossmatch 03/21/19 03/21/19 03/21/19 14:11 18:28 19:32 WBC RBC Hgb Hct RDW Plt Count Seg Neuts % (Manual) Lymphocytes % (Manual) Monocytes % (Manual) Nucleated RBC % Seg Neutrophils # Seg Neutrophils # Man Lymphocytes # (Manual) Monocytes # (Manual) PT INR D-Dimer Heparin Anti-Xa Level POC ABG pH 7.293 L ABG pH POC ABG pCO2 POC ABG pO2 ABG pO2 ABG HCO3 ABG O2 Saturation ABG Base Excess ABG Hemoglobin Oxyhemoglobin Sodium Potassium Chloride Carbon Dioxide BUN Creatinine Glucose POC Glucose 153 H Lactic Acid 2.10 H* Calcium Phosphorus Magnesium Total Bilirubin Direct Bilirubin AST ALT Alkaline Phosphatase Total Creatine Kinase CK-MB (CK-2) Troponin T C-Reactive Protein Total Protein Albumin Triglycerides LDL Cholesterol Direct HDL Cholesterol Free T4 PTH Intact Urine WBC (Auto) Urine Creatinine Salicylates Acetaminophen Crossmatch 03/21/19 03/22/19 03/22/19 23:38 05:08 05:51 WBC RBC Hgb Hct RDW Plt Count Seg Neuts % (Manual) Lymphocytes % (Manual) Monocytes % (Manual) Nucleated RBC % Seg Neutrophils # Seg Neutrophils # Man Lymphocytes # (Manual) Monocytes # (Manual) PT INR D-Dimer Heparin Anti-Xa Level POC ABG pH 7.283 L ABG pH POC ABG pCO2 POC ABG pO2 53 L ABG pO2 ABG HCO3 ABG O2 Saturation ABG Base Excess ABG Hemoglobin Oxyhemoglobin Sodium Potassium Chloride Carbon Dioxide BUN Creatinine Glucose POC Glucose 149 H 131 H Lactic Acid Calcium Phosphorus Magnesium Total Bilirubin Direct Bilirubin AST ALT Alkaline Phosphatase Total Creatine Kinase CK-MB (CK-2) Troponin T C-Reactive Protein Total Protein Albumin Triglycerides LDL Cholesterol Direct HDL Cholesterol Free T4 PTH Intact Urine WBC (Auto) Urine Creatinine Salicylates Acetaminophen Crossmatch 03/22/19 03/22/19 03/22/19 08:00 08:00 18:19 WBC 36.7 H RBC Hgb 11.0 L Hct 33.5 L RDW 15.5 H Plt Count 43 L Seg Neuts % (Manual) 87.0 H Lymphocytes % (Manual) 7.0 L Monocytes % (Manual) Nucleated RBC % Seg Neutrophils # Seg Neutrophils # Man 31.9 H Lymphocytes # (Manual) Monocytes # (Manual) PT INR D-Dimer Heparin Anti-Xa Level POC ABG pH ABG pH POC ABG pCO2 46.4 H POC ABG pO2 108 H ABG pO2 ABG HCO3 ABG O2 Saturation ABG Base Excess ABG Hemoglobin Oxyhemoglobin Sodium 132 L Potassium 5.6 H Chloride 89.6 L Carbon Dioxide 20 L BUN 101 H Creatinine 7.4 H Glucose 124 H POC Glucose Lactic Acid Calcium 5.2 L* Phosphorus Magnesium Total Bilirubin 2.80 H Direct Bilirubin AST 119 H ALT 86 H Alkaline Phosphatase 245 H Total Creatine Kinase CK-MB (CK-2) Troponin T C-Reactive Protein Total Protein 5.6 L Albumin 2.5 L Triglycerides LDL Cholesterol Direct HDL Cholesterol Free T4 PTH Intact Urine WBC (Auto) Urine Creatinine Salicylates Acetaminophen Crossmatch 03/22/19 03/23/19 03/23/19 20:37 04:49 05:28 WBC 35.9 H RBC Hgb 10.8 L Hct 33.2 L RDW 15.5 H Plt Count 49 L Seg Neuts % (Manual) 81.0 H Lymphocytes % (Manual) 3.5 L Monocytes % (Manual) Nucleated RBC % Seg Neutrophils # Seg Neutrophils # Man 29.1 H Lymphocytes # (Manual) Monocytes # (Manual) 1.4 H PT INR D-Dimer Heparin Anti-Xa Level POC ABG pH 7.296 L ABG pH POC ABG pCO2 46.2 H POC ABG pO2 ABG pO2 ABG HCO3 ABG O2 Saturation ABG Base Excess ABG Hemoglobin Oxyhemoglobin Sodium 129 L Potassium 5.2 H Chloride 91.1 L Carbon Dioxide BUN 91 H Creatinine 6.6 H Glucose 190 H POC Glucose Lactic Acid Calcium 5.3 L* Phosphorus Magnesium Total Bilirubin 1.80 H Direct Bilirubin AST 80 H ALT 62 H Alkaline Phosphatase 209 H Total Creatine Kinase 9758 H CK-MB (CK-2) Troponin T C-Reactive Protein Total Protein 5.2 L Albumin 2.2 L Triglycerides LDL Cholesterol Direct HDL Cholesterol Free T4 PTH Intact Urine WBC (Auto) Urine Creatinine Salicylates Acetaminophen Crossmatch 03/23/19 03/23/19 03/23/19 05:28 05:31 11:33 WBC 29.7 H RBC 3.59 L Hgb 10.1 L Hct 31.1 L RDW 15.4 H Plt Count 47 L Seg Neuts % (Manual) 89.0 H Lymphocytes % (Manual) 6.0 L Monocytes % (Manual) Nucleated RBC % 1.0 H Seg Neutrophils # Seg Neutrophils # Man 26.4 H Lymphocytes # (Manual) Monocytes # (Manual) PT INR D-Dimer Heparin Anti-Xa Level POC ABG pH ABG pH POC ABG pCO2 POC ABG pO2 ABG pO2 ABG HCO3 ABG O2 Saturation ABG Base Excess ABG Hemoglobin Oxyhemoglobin Sodium Potassium Chloride Carbon Dioxide BUN Creatinine Glucose POC Glucose 122 H 113 H Lactic Acid Calcium Phosphorus Magnesium Total Bilirubin Direct Bilirubin AST ALT Alkaline Phosphatase Total Creatine Kinase CK-MB (CK-2) Troponin T C-Reactive Protein Total Protein Albumin Triglycerides LDL Cholesterol Direct HDL Cholesterol Free T4 PTH Intact Urine WBC (Auto) Urine Creatinine Salicylates Acetaminophen Crossmatch 03/23/19 03/24/19 03/24/19 17:47 00:00 04:50 WBC 35.0 H RBC Hgb 10.4 L Hct 32.4 L RDW Plt Count 60 L Seg Neuts % (Manual) 93.0 H Lymphocytes % (Manual) 5.0 L Monocytes % (Manual) Nucleated RBC % 7.0 H Seg Neutrophils # Seg Neutrophils # Man 32.6 H Lymphocytes # (Manual) Monocytes # (Manual) PT INR D-Dimer Heparin Anti-Xa Level POC ABG pH ABG pH POC ABG pCO2 POC ABG pO2 ABG pO2 ABG HCO3 ABG O2 Saturation ABG Base Excess ABG Hemoglobin Oxyhemoglobin Sodium Potassium Chloride Carbon Dioxide BUN Creatinine Glucose POC Glucose 111 H 108 H Lactic Acid Calcium Phosphorus Magnesium Total Bilirubin Direct Bilirubin AST ALT Alkaline Phosphatase Total Creatine Kinase CK-MB (CK-2) Troponin T C-Reactive Protein Total Protein Albumin Triglycerides LDL Cholesterol Direct HDL Cholesterol Free T4 PTH Intact Urine WBC (Auto) Urine Creatinine Salicylates Acetaminophen Crossmatch 03/24/19 03/24/19 03/24/19 04:50 05:06 12:55 WBC RBC Hgb Hct RDW Plt Count Seg Neuts % (Manual) Lymphocytes % (Manual) Monocytes % (Manual) Nucleated RBC % Seg Neutrophils # Seg Neutrophils # Man Lymphocytes # (Manual) Monocytes # (Manual) PT INR D-Dimer Heparin Anti-Xa Level POC ABG pH ABG pH POC ABG pCO2 POC ABG pO2 ABG pO2 ABG HCO3 ABG O2 Saturation ABG Base Excess ABG Hemoglobin Oxyhemoglobin Sodium 134 L Potassium 5.1 H Chloride 95.3 L Carbon Dioxide 21 L BUN 85 H Creatinine 6.4 H Glucose 109 H POC Glucose 112 H 110 H Lactic Acid Calcium 5.8 L* Phosphorus Magnesium Total Bilirubin Direct Bilirubin AST ALT Alkaline Phosphatase Total Creatine Kinase 5747 H CK-MB (CK-2) Troponin T C-Reactive Protein Total Protein Albumin Triglycerides LDL Cholesterol Direct HDL Cholesterol Free T4 PTH Intact Urine WBC (Auto) Urine Creatinine Salicylates Acetaminophen Crossmatch 03/24/19 03/25/19 03/25/19 23:29 05:00 05:00 WBC RBC Hgb Hct RDW Plt Count Seg Neuts % (Manual) Lymphocytes % (Manual) Monocytes % (Manual) Nucleated RBC % Seg Neutrophils # Seg Neutrophils # Man Lymphocytes # (Manual) Monocytes # (Manual) PT INR D-Dimer Heparin Anti-Xa Level POC ABG pH ABG pH POC ABG pCO2 POC ABG pO2 ABG pO2 ABG HCO3 ABG O2 Saturation ABG Base Excess ABG Hemoglobin Oxyhemoglobin Sodium 133 L Potassium Chloride 94.0 L Carbon Dioxide 21 L BUN 81 H Creatinine 6.4 H Glucose POC Glucose 109 H Lactic Acid Calcium 5.5 L* Phosphorus Magnesium Total Bilirubin Direct Bilirubin AST 80 H ALT Alkaline Phosphatase 202 H Total Creatine Kinase 3589 H CK-MB (CK-2) Troponin T C-Reactive Protein Total Protein 5.3 L Albumin 2.4 L Triglycerides LDL Cholesterol Direct HDL Cholesterol Free T4 PTH Intact 329.9 H Urine WBC (Auto) Urine Creatinine Salicylates Acetaminophen Crossmatch 03/25/19 03/25/19 03/26/19 05:00 06:30 04:30 WBC 23.3 H RBC 3.61 L Hgb 10.2 L Hct 31.2 L RDW Plt Count 57 L Seg Neuts % (Manual) 92.0 H Lymphocytes % (Manual) 6.0 L Monocytes % (Manual) Nucleated RBC % Seg Neutrophils # Seg Neutrophils # Man 21.4 H Lymphocytes # (Manual) Monocytes # (Manual) PT INR D-Dimer Heparin Anti-Xa Level POC ABG pH ABG pH 7.326 L POC ABG pCO2 POC ABG pO2 ABG pO2 109.5 H 137.4 H ABG HCO3 18.8 L 18.6 L ABG O2 Saturation ABG Base Excess -4.4 L -6.8 L ABG Hemoglobin 10.1 L 9.9 L Oxyhemoglobin Sodium Potassium Chloride Carbon Dioxide BUN Creatinine Glucose POC Glucose Lactic Acid Calcium Phosphorus Magnesium Total Bilirubin Direct Bilirubin AST ALT Alkaline Phosphatase Total Creatine Kinase CK-MB (CK-2) Troponin T C-Reactive Protein Total Protein Albumin Triglycerides LDL Cholesterol Direct HDL Cholesterol Free T4 PTH Intact Urine WBC (Auto) Urine Creatinine Salicylates Acetaminophen Crossmatch 03/26/19 03/26/19 03/26/19 23:22 Unknown Unknown WBC 19.5 H RBC 3.44 L Hgb 9.8 L Hct 29.9 L RDW Plt Count 85 L Seg Neuts % (Manual) 95.0 H Lymphocytes % (Manual) 3.0 L Monocytes % (Manual) Nucleated RBC % Seg Neutrophils # Seg Neutrophils # Man 18.5 H Lymphocytes # (Manual) 0.6 L Monocytes # (Manual) PT INR D-Dimer Heparin Anti-Xa Level POC ABG pH ABG pH POC ABG pCO2 POC ABG pO2 ABG pO2 ABG HCO3 ABG O2 Saturation ABG Base Excess ABG Hemoglobin Oxyhemoglobin Sodium 135 L Potassium 5.2 H D Chloride 92.2 L Carbon Dioxide 18 L BUN 109 H Creatinine 8.5 H Glucose 117 H POC Glucose 69 L Lactic Acid Calcium 4.5 L* D Phosphorus Magnesium Total Bilirubin Direct Bilirubin AST ALT Alkaline Phosphatase Total Creatine Kinase 4527 H CK-MB (CK-2) Troponin T C-Reactive Protein Total Protein Albumin Triglycerides LDL Cholesterol Direct HDL Cholesterol Free T4 PTH Intact Urine WBC (Auto) Urine Creatinine Salicylates Acetaminophen Crossmatch 03/27/19 03/27/19 03/27/19 04:30 04:30 09:00 WBC 19.2 H RBC 3.42 L Hgb 9.9 L Hct 30.0 L RDW Plt Count 84 L Seg Neuts % (Manual) Lymphocytes % (Manual) Monocytes % (Manual) Nucleated RBC % Seg Neutrophils # Seg Neutrophils # Man Lymphocytes # (Manual) Monocytes # (Manual) PT INR D-Dimer Heparin Anti-Xa Level POC ABG pH ABG pH POC ABG pCO2 POC ABG pO2 ABG pO2 ABG HCO3 ABG O2 Saturation ABG Base Excess ABG Hemoglobin Oxyhemoglobin Sodium 135 L Potassium Chloride 93.5 L Carbon Dioxide BUN 84 H Creatinine 7.1 H Glucose POC Glucose Lactic Acid Calcium 5.0 L* Phosphorus Magnesium Total Bilirubin Direct Bilirubin AST 78 H ALT Alkaline Phosphatase 135 H Total Creatine Kinase 4677 H CK-MB (CK-2) Troponin T C-Reactive Protein Total Protein 4.8 L Albumin 2.3 L Triglycerides 409 H LDL Cholesterol Direct HDL Cholesterol Free T4 PTH Intact Urine WBC (Auto) Urine Creatinine Salicylates Acetaminophen Crossmatch 03/27/19 03/27/19 03/27/19 12:37 14:15 14:15 WBC RBC Hgb 9.7 L Hct 29.5 L RDW Plt Count 87 L Seg Neuts % (Manual) Lymphocytes % (Manual) Monocytes % (Manual) Nucleated RBC % Seg Neutrophils # Seg Neutrophils # Man Lymphocytes # (Manual) Monocytes # (Manual) PT 15.9 H INR 1.30 H D-Dimer Heparin Anti-Xa Level POC ABG pH ABG pH POC ABG pCO2 POC ABG pO2 ABG pO2 ABG HCO3 ABG O2 Saturation ABG Base Excess ABG Hemoglobin Oxyhemoglobin Sodium Potassium Chloride Carbon Dioxide BUN Creatinine Glucose POC Glucose 129 H Lactic Acid Calcium Phosphorus Magnesium Total Bilirubin Direct Bilirubin AST ALT Alkaline Phosphatase Total Creatine Kinase CK-MB (CK-2) Troponin T C-Reactive Protein Total Protein Albumin Triglycerides LDL Cholesterol Direct HDL Cholesterol Free T4 PTH Intact Urine WBC (Auto) Urine Creatinine Salicylates Acetaminophen Crossmatch 03/27/19 03/27/19 03/27/19 18:00 19:22 19:23 WBC RBC Hgb Hct RDW Plt Count Seg Neuts % (Manual) Lymphocytes % (Manual) Monocytes % (Manual) Nucleated RBC % Seg Neutrophils # Seg Neutrophils # Man Lymphocytes # (Manual) Monocytes # (Manual) PT INR D-Dimer Heparin Anti-Xa Level < 0.10 L POC ABG pH ABG pH POC ABG pCO2 POC ABG pO2 ABG pO2 ABG HCO3 ABG O2 Saturation ABG Base Excess ABG Hemoglobin Oxyhemoglobin Sodium Potassium Chloride Carbon Dioxide BUN Creatinine Glucose POC Glucose 121 H Lactic Acid Calcium Phosphorus Magnesium Total Bilirubin Direct Bilirubin AST ALT Alkaline Phosphatase Total Creatine Kinase 4517 H CK-MB (CK-2) Troponin T C-Reactive Protein Total Protein Albumin Triglycerides LDL Cholesterol Direct HDL Cholesterol Free T4 PTH Intact Urine WBC (Auto) Urine Creatinine Salicylates Acetaminophen Crossmatch 03/27/19 03/27/19 03/28/19 22:10 23:52 03:49 WBC RBC Hgb Hct RDW Plt Count Seg Neuts % (Manual) Lymphocytes % (Manual) Monocytes % (Manual) Nucleated RBC % Seg Neutrophils # Seg Neutrophils # Man Lymphocytes # (Manual) Monocytes # (Manual) PT INR D-Dimer Heparin Anti-Xa Level POC ABG pH 7.338 L ABG pH POC ABG pCO2 33.1 L POC ABG pO2 ABG pO2 ABG HCO3 ABG O2 Saturation ABG Base Excess ABG Hemoglobin Oxyhemoglobin Sodium Potassium Chloride Carbon Dioxide BUN Creatinine Glucose POC Glucose 113 H 117 H Lactic Acid Calcium Phosphorus Magnesium Total Bilirubin Direct Bilirubin AST ALT Alkaline Phosphatase Total Creatine Kinase CK-MB (CK-2) Troponin T C-Reactive Protein Total Protein Albumin Triglycerides LDL Cholesterol Direct HDL Cholesterol Free T4 PTH Intact Urine WBC (Auto) Urine Creatinine Salicylates Acetaminophen Crossmatch 03/28/19 03/28/19 03/28/19 05:13 05:13 06:18 WBC RBC Hgb Hct RDW Plt Count Seg Neuts % (Manual) Lymphocytes % (Manual) Monocytes % (Manual) Nucleated RBC % Seg Neutrophils # Seg Neutrophils # Man Lymphocytes # (Manual) Monocytes # (Manual) PT INR D-Dimer Heparin Anti-Xa Level 0.23 L POC ABG pH ABG pH POC ABG pCO2 POC ABG pO2 ABG pO2 ABG HCO3 ABG O2 Saturation ABG Base Excess ABG Hemoglobin Oxyhemoglobin Sodium 135 L Potassium 5.5 H D Chloride 95.1 L Carbon Dioxide 16 L D BUN 129 H Creatinine 9.3 H Glucose 158 H POC Glucose 202 H Lactic Acid Calcium 4.0 L* D Phosphorus 12.40 H Magnesium Total Bilirubin Direct Bilirubin AST ALT Alkaline Phosphatase Total Creatine Kinase 4266 H CK-MB (CK-2) Troponin T C-Reactive Protein Total Protein Albumin Triglycerides LDL Cholesterol Direct HDL Cholesterol Free T4 PTH Intact Urine WBC (Auto) Urine Creatinine Salicylates Acetaminophen Crossmatch 03/28/19 03/28/19 03/28/19 08:25 10:00 12:00 WBC RBC Hgb 4.9 L* D Hct 15.4 L* D RDW Plt Count Seg Neuts % (Manual) Lymphocytes % (Manual) Monocytes % (Manual) Nucleated RBC % Seg Neutrophils # Seg Neutrophils # Man Lymphocytes # (Manual) Monocytes # (Manual) PT 17.9 H INR 1.52 H D-Dimer 4845.98 H Heparin Anti-Xa Level POC ABG pH ABG pH POC ABG pCO2 POC ABG pO2 ABG pO2 ABG HCO3 ABG O2 Saturation ABG Base Excess ABG Hemoglobin Oxyhemoglobin Sodium Potassium Chloride Carbon Dioxide BUN Creatinine Glucose POC Glucose Lactic Acid Calcium Phosphorus Magnesium Total Bilirubin Direct Bilirubin AST ALT Alkaline Phosphatase Total Creatine Kinase CK-MB (CK-2) Troponin T C-Reactive Protein Total Protein Albumin Triglycerides LDL Cholesterol Direct HDL Cholesterol Free T4 PTH Intact Urine WBC (Auto) Urine Creatinine Salicylates Acetaminophen Crossmatch See Detail 03/28/19 03/28/19 03/28/19 12:28 14:10 17:43 WBC RBC Hgb 5.9 L* Hct 18.3 L* RDW Plt Count Seg Neuts % (Manual) Lymphocytes % (Manual) Monocytes % (Manual) Nucleated RBC % Seg Neutrophils # Seg Neutrophils # Man Lymphocytes # (Manual) Monocytes # (Manual) PT INR D-Dimer Heparin Anti-Xa Level POC ABG pH ABG pH POC ABG pCO2 POC ABG pO2 ABG pO2 ABG HCO3 ABG O2 Saturation ABG Base Excess ABG Hemoglobin Oxyhemoglobin Sodium Potassium Chloride Carbon Dioxide BUN Creatinine Glucose POC Glucose 153 H 159 H Lactic Acid Calcium Phosphorus Magnesium Total Bilirubin Direct Bilirubin AST ALT Alkaline Phosphatase Total Creatine Kinase CK-MB (CK-2) Troponin T C-Reactive Protein Total Protein Albumin Triglycerides LDL Cholesterol Direct HDL Cholesterol Free T4 PTH Intact Urine WBC (Auto) Urine Creatinine Salicylates Acetaminophen Crossmatch 03/28/19 03/28/19 03/28/19 18:10 Unknown 23:59 WBC 24.8 H RBC 3.42 L Hgb 10.2 L D Hct 31.1 L D RDW 15.4 H Plt Count 54 L Seg Neuts % (Manual) 91.0 H Lymphocytes % (Manual) 8.0 L Monocytes % (Manual) Nucleated RBC % Seg Neutrophils # Seg Neutrophils # Man 22.6 H Lymphocytes # (Manual) Monocytes # (Manual) PT INR D-Dimer Heparin Anti-Xa Level POC ABG pH ABG pH POC ABG pCO2 POC ABG pO2 ABG pO2 ABG HCO3 ABG O2 Saturation ABG Base Excess ABG Hemoglobin Oxyhemoglobin Sodium Potassium 5.7 H Chloride Carbon Dioxide BUN Creatinine Glucose POC Glucose 107 H Lactic Acid Calcium Phosphorus Magnesium Total Bilirubin Direct Bilirubin AST ALT Alkaline Phosphatase Total Creatine Kinase CK-MB (CK-2) Troponin T C-Reactive Protein Total Protein Albumin Triglycerides LDL Cholesterol Direct HDL Cholesterol Free T4 PTH Intact Urine WBC (Auto) Urine Creatinine Salicylates Acetaminophen Crossmatch 03/29/19 03/29/19 03/29/19 04:29 05:46 06:22 WBC RBC Hgb 8.6 L Hct 25.7 L RDW Plt Count 93 L Seg Neuts % (Manual) Lymphocytes % (Manual) Monocytes % (Manual) Nucleated RBC % Seg Neutrophils # Seg Neutrophils # Man Lymphocytes # (Manual) Monocytes # (Manual) PT INR D-Dimer Heparin Anti-Xa Level POC ABG pH ABG pH POC ABG pCO2 32.2 L POC ABG pO2 ABG pO2 ABG HCO3 ABG O2 Saturation ABG Base Excess ABG Hemoglobin Oxyhemoglobin Sodium Potassium Chloride Carbon Dioxide BUN Creatinine Glucose POC Glucose 113 H Lactic Acid Calcium Phosphorus Magnesium Total Bilirubin Direct Bilirubin AST ALT Alkaline Phosphatase Total Creatine Kinase CK-MB (CK-2) Troponin T C-Reactive Protein Total Protein Albumin Triglycerides LDL Cholesterol Direct HDL Cholesterol Free T4 PTH Intact Urine WBC (Auto) Urine Creatinine Salicylates Acetaminophen Crossmatch 03/29/19 03/29/19 03/29/19 06:22 06:22 06:22 WBC 23.2 H RBC 2.91 L Hgb 8.6 L Hct 25.8 L RDW Plt Count 91 L Seg Neuts % (Manual) Lymphocytes % (Manual) Monocytes % (Manual) Nucleated RBC % Seg Neutrophils # Seg Neutrophils # Man Lymphocytes # (Manual) Monocytes # (Manual) PT INR D-Dimer Heparin Anti-Xa Level POC ABG pH ABG pH POC ABG pCO2 POC ABG pO2 ABG pO2 ABG HCO3 ABG O2 Saturation ABG Base Excess ABG Hemoglobin Oxyhemoglobin Sodium 133 L Potassium Chloride 93.8 L Carbon Dioxide 18 L BUN 109 H Creatinine 7.4 H Glucose 124 H POC Glucose Lactic Acid Calcium 4.6 L* Phosphorus Magnesium Total Bilirubin Direct Bilirubin AST ALT Alkaline Phosphatase Total Creatine Kinase 3401 H CK-MB (CK-2) Troponin T C-Reactive Protein Total Protein Albumin Triglycerides 309 H LDL Cholesterol Direct HDL Cholesterol Free T4 PTH Intact Urine WBC (Auto) Urine Creatinine Salicylates Acetaminophen Crossmatch 03/29/19 03/29/19 03/29/19 11:48 11:48 18:24 WBC RBC Hgb 7.8 L Hct 23.2 L RDW Plt Count Seg Neuts % (Manual) Lymphocytes % (Manual) Monocytes % (Manual) Nucleated RBC % Seg Neutrophils # Seg Neutrophils # Man Lymphocytes # (Manual) Monocytes # (Manual) PT 15.3 H INR 1.24 H D-Dimer Heparin Anti-Xa Level POC ABG pH ABG pH POC ABG pCO2 POC ABG pO2 ABG pO2 ABG HCO3 ABG O2 Saturation ABG Base Excess ABG Hemoglobin Oxyhemoglobin Sodium Potassium Chloride Carbon Dioxide BUN Creatinine Glucose POC Glucose 122 H Lactic Acid Calcium Phosphorus Magnesium Total Bilirubin Direct Bilirubin AST ALT Alkaline Phosphatase Total Creatine Kinase CK-MB (CK-2) Troponin T C-Reactive Protein Total Protein Albumin Triglycerides LDL Cholesterol Direct HDL Cholesterol Free T4 PTH Intact Urine WBC (Auto) Urine Creatinine Salicylates Acetaminophen Crossmatch 03/30/19 03/30/19 03/30/19 00:40 04:31 05:04 WBC RBC Hgb 7.6 L Hct 23.0 L RDW Plt Count Seg Neuts % (Manual) Lymphocytes % (Manual) Monocytes % (Manual) Nucleated RBC % Seg Neutrophils # Seg Neutrophils # Man Lymphocytes # (Manual) Monocytes # (Manual) PT INR D-Dimer Heparin Anti-Xa Level POC ABG pH 7.346 L ABG pH POC ABG pCO2 POC ABG pO2 62 L ABG pO2 ABG HCO3 ABG O2 Saturation ABG Base Excess ABG Hemoglobin Oxyhemoglobin Sodium Potassium Chloride Carbon Dioxide BUN 79 H Creatinine 6.4 H Glucose POC Glucose Lactic Acid Calcium 6.1 L D Phosphorus Magnesium Total Bilirubin Direct Bilirubin AST ALT Alkaline Phosphatase Total Creatine Kinase CK-MB (CK-2) Troponin T C-Reactive Protein Total Protein Albumin Triglycerides LDL Cholesterol Direct HDL Cholesterol Free T4 PTH Intact Urine WBC (Auto) Urine Creatinine Salicylates Acetaminophen Crossmatch 03/30/19 08:45 WBC 14.3 H RBC 2.33 L Hgb 7.0 L Hct 21.0 L RDW 15.6 H Plt Count 135 L Seg Neuts % (Manual) Lymphocytes % (Manual) Monocytes % (Manual) Nucleated RBC % Seg Neutrophils # Seg Neutrophils # Man Lymphocytes # (Manual) Monocytes # (Manual) PT INR D-Dimer Heparin Anti-Xa Level POC ABG pH ABG pH POC ABG pCO2 POC ABG pO2 ABG pO2 ABG HCO3 ABG O2 Saturation ABG Base Excess ABG Hemoglobin Oxyhemoglobin Sodium Potassium Chloride Carbon Dioxide BUN Creatinine Glucose POC Glucose Lactic Acid Calcium Phosphorus Magnesium Total Bilirubin Direct Bilirubin AST ALT Alkaline Phosphatase Total Creatine Kinase CK-MB (CK-2) Troponin T C-Reactive Protein Total Protein Albumin Triglycerides LDL Cholesterol Direct HDL Cholesterol Free T4 PTH Intact Urine WBC (Auto) Urine Creatinine Salicylates Acetaminophen Crossmatch Chest x-ray: pending Allied health notes reviewed: nursing
[2019-03-30] MEDS ORDERED: SODIUM CHLORIDE 0.9% 500 ML 500 ML IV ONE (13:27)
[2019-03-30 13:54] LABS: Albumin 2.2 g/dL (3.9-5); Bilirubin,Direct 0.4 mg/dL (0-0.2)
[2019-03-30] MEDS ORDERED: SODIUM CHLORIDE 0.9% 1000 ML 1,000 ML ONE (15:20)
[2019-03-30] MEDS: CEFEPIME/NS 2 GM/100 ML 2 GM/100 ML BAG IV SCH (15:21)
[2019-03-30] MEDS: AMIODARONE 900 MG in DEXTROSE 5% IN WATER 482 ML IV SCH (15:59)
[2019-03-30] MEDS: ACETAMINOPHEN 325 MG TAB PO PRN (16:19)
[2019-03-30] MEDS ORDERED: WATER FOR IRRIG STERILE 1,000 ML BOTTLE ONE (16:26)
[2019-03-30] MEDS ORDERED: WATER FOR IRRIG STERILE 250 ML BOTTLE IR ONE (16:27)
[2019-03-30] MEDS ORDERED: LIDOCAINE MPF (2%) 20 MG/1 ML VIAL 5 ML ONE (18:00)
[2019-03-30] MEDS ORDERED: METOCLOPRAMIDE 10 MG/2 ML INJ IV ONE (18:21)
[2019-03-30] MEDS ORDERED: ETOMIDATE 20 MG/10 ML INJ IV ONE (18:25)
--- NOTE | 2019-03-30 19:14 | Operative Report ---
Operative Report Operative Report: DOS: 03/30/2019 Endoscopist: Keith Rojas MD EGD with REPORT PREOPERATIVE DIAGNOSIS and POSTOPERATIVE DIAGNOSIS: GI bleed ESTIMATED BLOOD LOSS: minimal DESCRIPTION OF PROCEDURE: A high-resolution EGD scope was passed through the oropharynx, esophagus, stomach, and second portion of duodenum. The scope was carefully withdrawn. Retroflexion was performed in the stomach. At the end of the procedure, the scope was cleaned using normal technique. Vital signs monitored continuously throughout. SEDATION: Provided by Anesthesiology Services. COMPLICATIONS: None. FINDINGS: Normal duodenum exam without any bleeding noted. The antrum revealed erythematous mucosa with scattered nonbleeding small erosions. The gastric body showed a 1 cm ulcer with blood clot, which could not be irrigated out. There was no active bleeding from the ulcer. The ulcer was treated with injection of epinepherine followed by cautery with gold probe successfully to prevent recurrent bleeding. There were two other small clean based ulcers in the gastric body, no high risk stigmata noted. The retroflexion in the stomach showed normal cardiac and fundus. The esophagus showed mild distal esophagitis with irregular z-line. The rest of the esophagus was normal. RECOMMENDATIONS: 1. Continue with PPI drip. 2. Monitor H/H serially. 3. keep NPO for now until H/H stable. 4. In case of recurrent bleeding, recommend CTA vs bleeding scan. 5. Will follow. Family updated on the phone.
[2019-03-30] MEDS ORDERED: EPINEPHrine/PF (1:1,000) 1 MG/1 ML INJ SUB-Q ONE (20:03)
--- NOTE | 2019-03-30 20:07 | Progress Note ---
Assessment and Plan Assessment and plan: 43-year-old man with history of GERD and obesity who presented to the hospital altered mental status, he was visiting from [place] and brought in by his friend. He has been feeling ill for a few days and have left eye discharge and there was mention of right axilla/patient was more lethargic, had trouble breathing and then suddenly could not walk on his own. When he came to the ER was unable to speak or follow commands, in the ER he was found to have SVT with heart rate in the 250s. The patient was shocks and medicated. He became more confused and had trouble protecting his airway, he was then intubated -[facility] Status post, cardiopulmonary arrest, status post shock for SVT in 250s after which she deteriorated into polymorphic V. tach for which she was shocked again. And then intubated in the ER Paroxysmal A. fib with RVR Torsade sparkle points/ventricular tachycardia EF 40% * Cardiology input appreciated, continue amiodarone drip, no beta-adela or CHRISTIN given hypotension, will need ischemic cardiac stratification when improved acute systolic chf, ef 40 fluid removal via HD, optimize cardiac meds when BP able to tolerate it Acute GI bleed, upper GI bleed due to PUD -PPI drip, heparin drip discontinued, EGD on 03/30 shows multiple ulcers, and large ulcer was rx with epi Acute blood loss anemia Transfused multiple units of PRBC, now improved Right IJ nonocclusive thrombosis Discussed with vascular surgery, patient unable to tolerate anticoagulation due to thrombocytopenia and bleeding. Will monitor Septic shock with multiorgan failure, off pressors for 48 hours Aspiration pneumonia Brain MRI was a limited study due to lack of contrast and motion artifact. No acute findings on MRI brain, could not evaluate for leptomeningeal enhancement without IV contrast , follow-up blood cultures, , LP awaited due to low platelets. Continue antibiotics, tickborne serologies pending, prognosis guarded Acute kidney injury, rhabdomyolysis, hyperkalemia Continue dialysis per nephrology Acute hypoxic respiratory failure on mechanical ventilator greater than 96 hours Continue ventilator, continue to attempt to wean per the children's entertainer Presumed ARDS Profound hypocalcemia repleted and improved, likely related to renal failure Acute Metabolic Encephalopathy Severe metabolic acidosis, rhabdomyolysis Thrombocytopenia Likely due to sepsis, continue to monitor Advanced care planning, family opting against DNR, cont aggressive rx The high probability of a clinically significant, sudden or life threatening deterioration of the [multiple organs] system(s) required my full and direct attention, intervention and personal management. The aggregate critical care time was [45] minutes. This time is in addition to time spent performing reported procedures but includes the following: [x] Data Review and interpretation [x] Patient assessment and monitoring of vital signs [x] Documentation [x] Medication orders and management History Interval history: Continues to have fever, no seizure, no agitation, -continues to have severe edema of upper extremities Remains intubated and sedated Hospitalist Physical - Physical exam Narrative exam: General.: Appears ill, intubated HEENT: Moist mucous membranes, extraocular muscles intact, no lymphadenopathy Neck: supple Cardiac: S1-S2 heard Lungs: Decreased breath sounds, ventilated breath sounds Abdomen: soft , nontender, nondistended, bowel sounds positive Extremities: 4 plus edema of UE, with weeping Skin: no rash or lesions Neurologic: Intubated and sedated Psych: Intubated and sedated - Constitutional Vitals: Temp Pulse Resp BP Pulse Ox 99.3 F 94 H 14 117/51 93 03/30/19 19:48 03/30/19 18:40 03/30/19 18:40 03/30/19 18:40 03/30/19 18:40 General appearance: Present: other (intubated) Results - Labs CBC & Chem 7: 03/31/19 04:44 03/31/19 04:44 Labs: Laboratory Last Values WBC 14.3 K/mm3 (4.5-11.0) H 03/30/19 08:45 RBC 2.33 M/mm3 (3.65-5.03) L 03/30/19 08:45 Hgb 7.0 gm/dl (11.8-15.2) L 03/30/19 08:45 Hct 21.0 % (35.5-45.6) L 03/30/19 08:45 MCV 90 fl (84-94) 03/30/19 08:45 MCH 30 pg (28-32) 03/30/19 08:45 MCHC 33 % (32-34) 03/30/19 08:45 RDW 15.6 % (13.2-15.2) H 03/30/19 08:45 Plt Count 135 K/mm3 (140-440) L 03/30/19 08:45 [place] % (Auto) 1.6 % (0.0-7.3) 03/21/19 04:26 [place] # 0.6 K/mm3 (0.0-0.8) 03/21/19 04:26 Add Manual Diff Complete 03/28/19 18:10 Total Counted 100 03/28/19 18:10 Seg Neutrophils % Sheet Rock Applicator 03/26/19 Unknown Seg Neuts % (Manual) 91.0 % (40.0-70.0) H 03/28/19 18:10 Band Neutrophils % 0 % 03/28/19 18:10 Lymphocytes % (Manual) 8.0 % (13.4-35.0) L 03/28/19 18:10 Reactive Lymphs % (Man) 0 % 03/28/19 18:10 Monocytes % (Manual) 1.0 % (0.0-7.3) 03/28/19 18:10 Eosinophils % (Manual) 0 % (0.0-4.3) 03/28/19 18:10 Basophils % (Manual) 0 % (0.0-1.8) 03/28/19 18:10 Metamyelocytes % 0 % 03/28/19 18:10 Myelocytes % 0 % 03/28/19 18:10 Promyelocytes % 0 % 03/28/19 18:10 Blast Cells % 0 % 03/28/19 18:10 Nucleated RBC % Not Reportable 03/28/19 18:10 Seg Neutrophils # 34.6 K/mm3 (1.8-7.7) H 03/21/19 04:26 Seg Neutrophils # Man 22.6 K/mm3 (1.8-7.7) H 03/28/19 18:10 Band Neutrophils # 0.0 K/mm3 03/28/19 18:10 Lymphocytes # (Manual) 2.0 K/mm3 (1.2-5.4) 03/28/19 18:10 Abs React Lymphs (Man) 0.0 K/mm3 03/28/19 18:10 Monocytes # (Manual) 0.2 K/mm3 (0.0-0.8) 03/28/19 18:10 Eosinophils # (Manual) 0.0 K/mm3 (0.0-0.4) 03/28/19 18:10 Basophils # (Manual) 0.0 K/mm3 (0.0-0.1) 03/28/19 18:10 Metamyelocytes # 0.0 K/mm3 03/28/19 18:10 Myelocytes # 0.0 K/mm3 03/28/19 18:10 Promyelocytes # 0.0 K/mm3 03/28/19 18:10 Blast Cells # 0.0 K/mm3 03/28/19 18:10 WBC Morphology Not Reportable 03/28/19 18:10 Hypersegmented Neuts Not Reportable 03/28/19 18:10 Hyposegmented Neuts Not Reportable 03/28/19 18:10 Hypogranular Neuts Not Reportable 03/28/19 18:10 Smudge Cells Not Reportable 03/28/19 18:10 Toxic Granulation Not Reportable 03/28/19 18:10 Toxic Vacuolation Not Reportable 03/28/19 18:10 Dohle Bodies Not Reportable 03/28/19 18:10 Pelger-Huet Anomaly Not Reportable 03/28/19 18:10 Joyce Rods Not Reportable 03/28/19 18:10 Platelet Estimate Appears decreased 03/28/19 18:10 Clumped Platelets Not Reportable 03/28/19 18:10 Plt Clumps, EDTA Not Reportable 03/28/19 18:10 Large Platelets Not Reportable 03/28/19 18:10 Giant Platelets Not Reportable 03/28/19 18:10 Platelet Satelliting Not Reportable 03/28/19 18:10 Plt Morphology Comment Not Reportable 03/28/19 18:10 RBC Morphology Not Reportable 03/28/19 18:10 Dimorphic RBCs Not Reportable 03/28/19 18:10 Polychromasia Not Reportable 03/28/19 18:10 Hypochromasia Not Reportable 03/28/19 18:10 Poikilocytosis Not Reportable 03/28/19 18:10 Anisocytosis Few 03/28/19 18:10 Microcytosis Not Reportable 03/28/19 18:10 Macrocytosis Not Reportable 03/28/19 18:10 Spherocytes Not Reportable 03/28/19 18:10 Pappenheimer Bodies Not Reportable 03/28/19 18:10 Sickle Cells Not Reportable 03/28/19 18:10 Target Cells Not Reportable 03/28/19 18:10 Tear Drop Cells Not Reportable 03/28/19 18:10 Ovalocytes Not Reportable 03/28/19 18:10 Stomatocytes Few 03/26/19 Unknown Helmet Cells Not Reportable 03/28/19 18:10 [place] Bodies Not Reportable 03/28/19 18:10 [place] Rings Not Reportable 03/28/19 18:10 Samantha Cells Not Reportable 03/28/19 18:10 Bite Cells Not Reportable 03/28/19 18:10 Crenated Cell Not Reportable 03/28/19 18:10 Elliptocytes Not Reportable 03/28/19 18:10 Acanthocytes (Spur) Not Reportable 03/28/19 18:10 Rouleaux Not Reportable 03/28/19 18:10 Hemoglobin C Crystals Not Reportable 03/28/19 18:10 Schistocytes Not Reportable 03/28/19 18:10 Malaria parasites Not Reportable 03/28/19 18:10 Phil Bodies Not Reportable 03/28/19 18:10 Hem Pathologist Commnt No 03/28/19 18:10 PT 15.3 Sec. (12.2-14.9) H 03/29/19 11:48 INR 1.24 (0.87-1.13) H 03/29/19 11:48 APTT 26.6 Sec. (24.2-36.6) 03/28/19 12:00 Fibrinogen 226 mg/dl (211-480) 03/28/19 12:00 D-Dimer 4845.98 ng/mlDDU (0-234) H 03/28/19 12:00 Heparin Anti-Xa Level 0.23 U.I./ml (0.3-0.7) L 03/28/19 05:13 POC ABG pH 7.346 (7.35-7.45) L 03/30/19 05:04 ABG pH 7.326 pH Units (7.350-7.450) L 03/26/19 04:30 POC ABG pCO2 43.0 (35-45) 03/30/19 05:04 ABG pCO2 36.4 mm Hg 03/26/19 04:30 POC ABG pO2 62 (80-105) L 03/30/19 05:04 ABG pO2 137.4 mm Hg (80.0-90.0) H 03/26/19 04:30 POC ABG HCO3 23.5 (22-26 mml/L) 03/30/19 05:04 ABG HCO3 18.6 mmol/L (20.0-26.0) L 03/26/19 04:30 POC ABG Total CO2 25 (23-27mmol/L) 03/30/19 05:04 POC ABG O2 Sat 90 03/30/19 05:04 ABG O2 Saturation 98.6 % (95.0-99.0) 03/26/19 04:30 ABG O2 Content 13.7 (0.0-44) 03/26/19 04:30 POC ABG Base Excess -2 ((-2) - (+3)mmol/L) 03/30/19 05:04 ABG Base Excess -6.8 mmol/L (-2.0-3.0) L 03/26/19 04:30 ABG Hemoglobin 9.9 gm/dl (14.0-18.0) L 03/26/19 04:30 ABG Carboxyhemoglobin 1.4 % (0.0-5.0) 03/26/19 04:30 ABG Methemoglobin 0.6 % (0.0-1.5) 03/26/19 04:30 Oxyhemoglobin 96.5 % (95.0-99.0) 03/26/19 04:30 FiO2 50 % 03/30/19 05:04 Sodium 139 mmol/L (137-145) 03/30/19 04:31 Potassium 4.9 mmol/L (3.6-5.0) 03/30/19 04:31 Chloride 98.2 mmol/L (98-107) 03/30/19 04:31 Carbon Dioxide 22 mmol/L (22-30) 03/30/19 04:31 Anion Gap 24 mmol/L 03/30/19 04:31 BUN 79 mg/dL (9-20) H 03/30/19 04:31 Creatinine 6.4 mg/dL (0.8-1.5) H 03/30/19 04:31 Estimated GFR 11 ml/min 03/30/19 04:31 BUN/Creatinine Ratio 12 % 03/30/19 04:31 Glucose 99 mg/dL (75-100) 03/30/19 04:31 POC Glucose 88 (70-105) 03/30/19 12:24 Lactic Acid 1.90 mmol/L (0.7-2.0) 03/21/19 21:31 Calcium 6.1 mg/dL (8.4-10.2) L D 03/30/19 04:31 Phosphorus 12.40 mg/dL (2.5-4.5) H 03/28/19 05:13 Magnesium 2.40 mg/dL (1.7-2.3) H 03/18/19 08:40 Total Bilirubin 0.60 mg/dL (0.1-1.2) 03/30/19 Unknown Direct Bilirubin 0.4 mg/dL (0-0.2) H 03/30/19 Unknown Indirect Bilirubin 0.2 mg/dL 03/30/19 Unknown AST 63 units/L (5-40) H 03/30/19 Unknown ALT 31 units/L (7-56) 03/30/19 Unknown Alkaline Phosphatase 65 units/L (35-129) 03/30/19 Unknown Total Creatine Kinase 3401 units/L (55-170) H 03/29/19 06:22 CK-MB (CK-2) 54.3 ng/mL (0.0-4.0) H 03/17/19 07:16 CK-MB (CK-2) Rel Index 0.0 (0-4) 03/17/19 07:16 Troponin T 0.058 ng/mL (0.00-0.029) H 03/17/19 07:16 C-Reactive Protein 13.30 mg/dL (0.00-1.30) H 03/20/19 14:45 Total Protein 4.9 g/dL (6.3-8.2) L 03/30/19 Unknown Albumin 2.2 g/dL (3.9-5) L 03/30/19 Unknown Albumin/Globulin Ratio 0.8 % 03/30/19 Unknown Triglycerides 309 mg/dL (2-149) H 03/29/19 06:22 Cholesterol 88 mg/dL (50-199) 03/16/19 22:32 LDL Cholesterol Direct 10 mg/dL (50-130) L 03/16/19 22:32 HDL Cholesterol 7 mg/dL (40-59) L 03/16/19 22:32 Cholesterol/HDL Ratio 12.57 % 03/16/19 22:32 Procalcitonin 25.42 ng/mL (<0.15) 03/27/19 19:21 TSH 2.200 mlU/mL (0.270-4.200) 03/16/19 17:05 Free T4 0.72 ng/dL (0.76-1.46) L 03/16/19 17:05 PTH Intact 329.9 pg/mL (15-65) H 03/25/19 05:00 Urine Color Kathy (Yellow) 03/17/19 16:05 Urine Turbidity Cloudy (Clear) 03/17/19 16:05 Urine pH 5.0 (5.0-7.0) 03/17/19 16:05 Ur Specific [place] 1.014 (1.003-1.030) 03/17/19 16:05 Urine Protein >500 mg/dL (Negative) 03/17/19 16:05 Urine Glucose (UA) 50 mg/dL (Negative) 03/17/19 16:05 Urine Ketones Tr mg/dL (Negative) 03/17/19 16:05 Urine Blood Lg (Negative) 03/17/19 16:05 Urine Nitrite Neg (Negative) 03/17/19 16:05 Urine Bilirubin Neg (Negative) 03/17/19 16:05 Urine Urobilinogen < 2.0 mg/dL (<2.0) 03/17/19 16:05 Ur Leukocyte Esterase Mod (Negative) 03/17/19 16:05 Urine WBC (Auto) 30.0 /HPF (0.0-6.0) H 03/17/19 16:05 Urine RBC (Auto) 11.0 /HPF (0.0-6.0) 03/17/19 16:05 U Epithel Cells (Auto) < 1.0 /HPF (0-13.0) 03/17/19 16:05 Urine Mucus Few /HPF 03/17/19 16:05 Urine Sperm 2+ /HPF (ACQUISITION LEAD) 03/17/19 16:05 Urine Eosinophils None seen (None Seen) 03/17/19 16:05 Urine Creatinine 106.6 mg/dL (0.1-20.0) H 03/17/19 16:05 Urine Sodium 95 mmol/L 03/17/19 16:05 Vancomycin Trough 11.5 ug/mL (5.0-20.0) 03/18/19 13:19 Random Vancomycin 16.6 ug/mL (0-40.0) 03/30/19 04:31 Salicylates < 0.3 mg/dL (2.8-20.0) L 03/16/19 17:05 Urine Opiates Screen Presumptive negative 03/17/19 16:05 Urine Methadone Screen Presumptive negative 03/17/19 16:05 Acetaminophen < 5.0 ug/mL (10.0-30.0) L 03/16/19 17:05 Ur Barbiturates Screen Presumptive negative 03/17/19 16:05 Ur Phencyclidine Scrn Presumptive negative 03/17/19 16:05 Ur Amphetamines Screen Presumptive negative 03/17/19 16:05 U Benzodiazepines Scrn Presumptive positive 03/17/19 16:05 Urine Cocaine Screen Presumptive negative 03/17/19 16:05 U Marijuana (THC) Screen Presumptive negative 03/17/19 16:05 Drugs of Abuse Note Disclamer 03/17/19 16:05 Plasma/Serum Alcohol < 0.01 % (0-0.07) 03/16/19 17:05 Hepatitis A IgM Ab Non-reactive (NonReactive) 03/18/19 13:18 Hep Bs Antigen Non-reactive (Negative) 03/18/19 13:18 Hep B Core IgM Ab Non-reactive (NonReactive) 03/18/19 13:18 Hepatitis C Antibody Non-reactive (NonReactive) 03/18/19 13:18 HIV 1&2 Antibody Rapid Non react (Non React) 03/17/19 11:52 HIV P24 Antigen Non react (Non React) 03/17/19 11:52 Influenza A (Rapid) Negative (Negative) 03/17/19 17:00 Influenza B (Rapid) Negative (Negative) 03/17/19 17:00 Group A Strep Rapid Negative (Negative) 03/17/19 17:00 Blood Type A POSITIVE 03/28/19 10:00 Antibody Screen Negative 03/28/19 10:00 Crossmatch See Detail 03/28/19 10:00 Active Medications - Current Medications Current Medications: Generic Name Dose Route Start Last Admin Trade Name Freq PRN Reason Stop Dose Admin Acetaminophen 650 mg 03/26/19 22:15 03/30/19 16:19 Tylenol PO 650 mg Q4H PRN Administration Pain, Mild (1-3), .5> Acetaminophen 650 mg 03/29/19 19:51 03/29/19 20:39 Tylenol [place] 650 mg Q4H PRN Administration Fever > 100.5 Albuterol 2.5 mg 03/29/19 13:08 Proventil IH Q4HRT PRN Shortness Of Breath Lipase/Protease/Amylase 1 each 03/17/19 14:[address] 10,500 Unit FEEDTUBE PRN PRN For Clogged Feeding Tube Dextrose 50 gm 03/19/19 18:39 03/26/19 23:26 D50w (25gm) Vial IV 50 gm PRN PRN Administration Hypoglycemia Fentanyl 50 mcg 03/26/19 12:00 03/27/19 13:47 Sublimaze IV 50 mcg Q1H PRN Administration Pain, Moderate (4-6) Hydrophilic Ointment 1 applic 03/16/19 15:50 Vaseline Lip Therapy TP Q2HR PRN Dry Lips Phenylephrine HCl 100 mg/ 100 mls @ 3 mls/hr 03/17/19 02:30 03/19/19 18:48 Sodium Chloride IV Infused TITR PAOLO Titration Protocol 50 MCG/MIN Fentanyl Citrate 2,000 mcg in 100 mls @ 7.85 mls/hr 03/26/19 12:00 03/30/19 17:56 Fentanyl Drip Premix IV 3 mcg/kg/hr TITR PAOLO 23.55 mls/hr Administration Protocol 1 MCG/KG/HR Cefepime HCl 2 gm in 100 mls @ 200 mls/hr 03/27/19 14:00 03/30/19 15:21 Maxipime/Ns 2 Gm/100 Ml IV 200 mls/hr Q24H PAOLO Administration Protocol Norepinephrine 4 mg in 250 mls @ 7.5 mls/hr 03/27/19 22:16 03/30/19 16:01 Levophed Drip 4 Mg/Ns 250 Ml IV 2 mcg/min TITR PAOLO 7.5 mls/hr Titration Protocol 2 MCG/MIN Pantoprazole Sodium 80 mg/ 100 mls @ 10 mls/hr 03/28/19 09:30 03/28/19 09:30 Sodium Chloride IV 8 mg/hr DIRECT PAOLO 10 mls/hr Administration 8 MG/HR Vasopressin 20 unit/ Sodium 101 mls @ 9.09 mls/hr 03/28/19 09:00 03/28/19 15:38 Chloride IV 0 units/min TITR PAOLO 0 mls/hr Titration Protocol 0.03 UNITS/MIN Sodium Chloride 100 mls @ 999 mls/hr 03/29/19 15:30 Nacl 0.9% IV NEYMAR PRN Hypotension Amiodarone HCl 900 mg/ 500 mls @ 16.667 mls/hr 03/30/19 13:00 03/30/19 15:59 Dextrose IV 0.5 mg/min DIRECT PAOLO 16.667 mls/hr Administration Protocol 0.5 MG/MIN Sodium Chloride 1,000 mls @ 50 mls/hr 03/30/19 13:00 Nacl 0.9% 1000 Ml IV DIRECT PAOLO Lorazepam 2 mg 03/26/19 11:54 03/29/19 11:15 Ativan IV 2 mg Q1H PRN Administration Agitation Metoprolol Tartrate 25 mg 03/28/19 14:00 03/30/19 14:44 Lopressor PO Not Given TID PAOLO Multi-Ingred Cream/Lotion/Oil/Oint 1 applic 03/16/19 15:50 03/19/19 20:10 Artificial Tears Ophth Oint OU 1 applic Q4HR PRN Administration Dry Eye(s) Ondansetron HCl 4 mg 03/16/19 22:21 Zofran IV Q8H PRN Nausea And Vomiting Paricalcitol 2 mcg 03/30/19 10:00 03/30/19 09:34 Zemplar IV 2 mcg DAILY PAOLO Administration Simple Syrup 15 ml 03/17/19 14:45 03/26/19 23:19 Simple Syrup FEEDTUBE 15 ml PRN PRN Administration Hypoglycemia Simple Syrup 30 ml 03/17/19 14:45 Simple Syrup FEEDTUBE PRN PRN Hypoglycemia Sodium Bicarbonate 325 mg 03/17/19 14:45 Sodium Bicarbonate FEEDTUBE PRN PRN For Clogged Feeding Tube Nutrition/Malnutrition Assess - Dietary Evaluation Nutrition/Malnutrition Findings: Nutrition Notes Start: 03/17/19 14:22 Freq: Status: Active Protocol: Document 03/29/19 13:35 AIYANA (Rec: 03/29/19 14:13 AIYANA [email or web address]) Co-Sign 03/29/19 13:35 Nutrition Notes Initial or Follow up Reassessment Current Diagnosis Acute Kidney Injury Other Pertinent Diagnosis on HD, Septic shock,Multiple organ failure, encephalopathy, rhabdomyolysis Current Diet Nepro with Carbsteady at 55ml/ hr Labs/Tests Na 133 Cl 93.8 BUN 109 Cr 7.4 Pertinent Medications Vasopressin Height 6 ft Weight 157.3 kg [place] Body Weight (kg) 80.90 BMI 47.0 Subjective/Other Information F/U for TF tolerance at goal rate. Pt TF was stopped due to GI bleed Percent of energy/protein needs met: 0%/0% Burn Absent Trauma Absent Minimum of two criteria No #1 Nutrition Diagnosis Inadequate oral intake Diagnosis Progress(for reassessment Continues documentation) Is patient on ventilator? Yes Is Patient Ambulatory and/or Out of Bed No REE-([facility]-confined to bed) 2997.636 Kcal/Kg value to use for calculation 14 Approximate Energy Requirements Using 2202 kcal/Kg Calculation Used for Recommendations Kcal/kg Additional Notes Protein Needs: 202g (2.5g/kg IBW 80.9) Fluid Needs: 1 ml/kcal or per MD Nutrition Intervention Change Diet Order: Advance diet when medically feasible Nutrition Support: Nepro 1.8 at 55 ml/hr Flush 100 ml q4hr for hyponatremia Kcal 2,376 Protein (gm) 107 Fluid (mL) 960 Goal #1 TF restart when medically feasible Anticipated Discharge Needs: Unable to determine at this time Follow-Up By: 04/02/19 Additional Comments F/U for TF restart, POC
[2019-03-30] MEDS ORDERED: EPINEPHrine/PF (1:1,000) 1 MG/1 ML INJ ONE (22:48)
[2019-03-30 23:02] LABS: Hematocrit 22.3 % (35.5-45.6); Hemoglobin 7.4 gm/dl (11.8-15.2)
--- NOTE | 2019-03-30 23:07 | Anesthesia Day of Surgery ---
Anesthesia Day of Surgery - Day of Surgery Patient Examined: Yes Patient H&P Reviewed: Yes Patient is NPO: Yes
--- NOTE | 2019-03-30 23:08 | Post Anesthesia Evaluation ---
- Post Anesthesia Evaluation Patient Participated: No Airway Patent: Yes Stable Respiratory Function: Yes Nausea/Vomiting: No Temp > 96.8F: Yes Pain Manageable: Yes Adequeate Hydration: Yes Anesthesia Complications: No Block Receding Appropriately: Not Applicable Patient on Ventilator: Yes
[2019-03-31] MEDS: ACETAMINOPHEN 650 MG RECT SUPP PR PRN ×2 (01:30→08:39)
[2019-03-31] MEDS: LORazepam 2 MG/ML VIAL IV PRN ×2 (01:31→10:15)
[2019-03-31] MEDS: fentaNYL DRIP Premix 2,000 MCG/100 ML BAG IV SCH ×6 (01:31→23:41)
--- NOTE | 2019-03-31 03:01 | XRay Report ---
CHEST 1 VIEW INDICATION / CLINICAL INFORMATION: pulmonary edema. COMPARISON: Chest radiograph 03/27/2019 FINDINGS: STATEMENTS: Patient is slightly rotated towards the right. SUPPORT DEVICES: Stable position of endotracheal tube and right IJ central venous catheter. Interval removal of previously seen enteric tube. HEART / MEDIASTINUM: Stable, allowing for degree of patient rotation on current study. LUNGS / PLEURA: Minimal scattered patchy pulmonary opacities likely reflect subsegmental atelectasis. No large pleural effusion. No pneumothorax. ADDITIONAL FINDINGS: No significant additional findings. IMPRESSION: 1. Interval removal of enteric tube. Remainder of lines and tubes unchanged. 2. Scattered areas of subsegmental atelectasis. Otherwise no acute cardiopulmonary abnormality identi fied. Signer Name: Soco Atwood MD Signed: 03/31/2019 2:57 AM Workstation Name: [id number]
[2019-03-31] MEDS: PANTOPRAZOLE 80 MG in SODIUM CHLORIDE 0.9% 100 ML IV SCH ×2 (03:18→13:40)
[2019-03-31 05:43] LABS: Basophils # (Auto) 0.1 K/mm3 (0.0-0.1); Basophils % (Auto) 0.8 % (0.0-1.8); Eosinophils # (Auto) 0.1 K/mm3 (0.0-0.4); Eosinophils % (Auto) 0.8 % (0.0-4.3); Hematocrit 21.9 % (35.5-45.6); Hemoglobin 7.3 gm/dl (11.8-15.2); Lymphocytes # (Auto) 1.2 K/mm3 (1.2-5.4); Lymphocytes % (Auto) 10.6 % (13.4-35.0); Mean Corpuscular HGB Conc 33 % (32-34); Mean Corpuscular Volume 91 fl (84-94); Monocytes # (Auto) 0.7 K/mm3 (0.0-0.8); Monocytes % (Auto) 6.1 % (0.0-7.3); Platelet Count 159 K/mm3 (140-440); Red Cell Distribution Width 15.4 % (13.2-15.2)
[2019-03-31 06:09] LABS: Calcium 5.3 mg/dL (8.4-10.2)
[2019-03-31] MEDS ORDERED: CALCIUM CHLORIDE 1,000 MG in SODIUM CHLORIDE 0.9% 100 ML IV ONE (07:00)
[2019-03-31] MEDS: METOPROLOL TARTRATE 25 MG TAB PO SCH ×3 (08:18→20:26)
--- NOTE | 2019-03-31 08:26 | Event Note ---
Date: 03/31/19 pt remains intubted, mech vent unresponsive vss nsr [id number] chest: diminished breath sounds cor: rrr w/o mur abd soft Imp: acute resp failure. s/p cardiopulm arrest Plan continue supportive measures no family members present at time of encounter
[2019-03-31] MEDS: CALCIUM CHLORIDE 1,000 MG/10 ML SDV IVP SCH ×2 (08:30→14:30)
[2019-03-31 08:57] LABS: Albumin 2.1 g/dL (3.9-5); Bilirubin,Direct 0.4 mg/dL (0-0.2)
[2019-03-31] MEDS ORDERED: SODIUM CHLORIDE 0.9% 100 ML IV PRN (10:15)
[2019-03-31] MEDS: PARICALCITOL 2 MCG/1 ML INJ IV SCH (10:15)
--- NOTE | 2019-03-31 11:03 | Progress Note ---
Assessment and Plan Assessment and plan: 43-year-old man with history of GERD and obesity who presented to the hospital altered mental status, he was visiting from [place] and brought in by his friend. He has been feeling ill for a few days and have left eye discharge and there was mention of right axilla/patient was more lethargic, had trouble breathing and then suddenly could not walk on his own. When he came to the ER was unable to speak or follow commands, in the ER he was found to have SVT with heart rate in the 250s. The patient was shocks and medicated. He became more confused and had trouble protecting his airway, he was then intubated -[facility] Status post, cardiopulmonary arrest, status post shock for SVT in 250s after which she deteriorated into polymorphic V. tach for which she was shocked again. And then intubated in the ER Paroxysmal A. fib with RVR Torsade sparkle points/ventricular tachycardia EF 40% * Cardiology input appreciated, continue amiodarone drip, no beta-adela or CHRISTIN given hypotension, will need ischemic cardiac stratification when improved acute systolic chf, ef 40 fluid removal via HD, optimize cardiac meds when BP able to tolerate it -Please avoid IV fluids or electrolyte repletion with large bags. Calcium chloride being given as IV pushes Acute GI bleed, upper GI bleed due to PUD -PPI , heparin drip discontinued, EGD on 03/30 shows multiple ulcers, and large ulcer was rx with epi Acute blood loss anemia Transfused multiple units of PRBC, now improved Right IJ nonocclusive thrombosis Discussed with vascular surgery, patient unable to tolerate anticoagulation due to thrombocytopenia and GI bleeding. Will monitor Septic shock with multiorgan failure, off pressors for 48 hours Aspiration pneumonia Brain MRI was a limited study due to lack of contrast and motion artifact. No acute findings on MRI brain, could not evaluate for leptomeningeal enhancement without IV contrast , follow-up blood cultures, , LP awaited due to low platelets. Continue antibiotics, tickborne serologies pending, prognosis guarded cont levephed Acute kidney injury, rhabdomyolysis, hyperkalemia Continue dialysis per nephrology Acute hypoxic respiratory failure on mechanical ventilator greater than 96 hours Continue ventilator, continue to attempt to wean per the surgical assist Presumed ARDS secondary hyperparathyroidism, hyperphosphatemia/Profound hypocalcemia repleted and improved, likely related to renal failure, binders, vit D and Ca supplements Acute Metabolic Encephalopathy Severe metabolic acidosis, rhabdomyolysis Thrombocytopenia Likely due to sepsis, continue to monitor Advanced care planning, family wants to cont aggressive mgt The high probability of a clinically significant, sudden or life threatening deterioration of the [multiple organs] system(s) required my full and direct attention, intervention and personal management. The aggregate critical care t pamela was [45] minutes. This time is in addition to time spent performing reported procedures but includes the following: [x] Data Review and interpretation [x] Patient assessment and monitoring of vital signs [x] Documentation [x] Medication orders and management History Interval history: Continues to have fever, no seizure, no agitation, -continues to have severe edema of upper extremities Remains intubated and sedated Hospitalist Physical - Physical exam Narrative exam: General.: Appears ill, intubated HEENT: Moist mucous membranes, extraocular muscles intact, no lymphadenopathy Neck: supple Cardiac: S1-S2 heard Lungs: Decreased breath sounds, ventilated breath sounds Abdomen: soft , nontender, nondistended, bowel sounds positive Extremities: 4 plus edema, weeping edema in UE Skin: no rash or lesions Neurologic: Intubated and sedated Psych: Intubated and sedated - Constitutional Vitals: Temp Pulse Resp BP Pulse Ox 100.6 F H 97 H 15 119/78 95 03/31/19 08:00 03/31/19 08:45 03/31/19 08:45 03/31/19 08:45 03/31/19 08:45 General appearance: Present: other (intubated) Results - Labs CBC & Chem 7: 03/31/19 04:44 03/31/19 04:44 Labs: Laboratory Last Values WBC 11.5 K/mm3 (4.5-11.0) H 03/31/19 04:44 RBC 2.40 M/mm3 (3.65-5.03) L 03/31/19 04:44 Hgb 7.3 gm/dl (11.8-15.2) L 03/31/19 04:44 Hct 21.9 % (35.5-45.6) L 03/31/19 04:44 MCV 91 fl (84-94) 03/31/19 04:44 MCH 30 pg (28-32) 03/31/19 04:44 MCHC 33 % (32-34) 03/31/19 04:44 RDW 15.4 % (13.2-15.2) H 03/31/19 04:44 Plt Count 159 K/mm3 (140-440) 03/31/19 04:44 Lymph % (Auto) 10.6 % (13.4-35.0) L 03/31/19 04:44 [place] % (Auto) 6.1 % (0.0-7.3) 03/31/19 04:44 Eos % (Auto) 0.8 % (0.0-4.3) 03/31/19 04:44 Baso % (Auto) 0.8 % (0.0-1.8) 03/31/19 04:44 Lymph # 1.2 K/mm3 (1.2-5.4) 03/31/19 04:44 [place] # 0.7 K/mm3 (0.0-0.8) 03/31/19 04:44 Eos # 0.1 K/mm3 (0.0-0.4) 03/31/19 04:44 Baso # 0.1 K/mm3 (0.0-0.1) 03/31/19 04:44 Add Manual Diff Complete 03/28/19 18:10 Total Counted 100 03/28/19 18:10 Seg Neutrophils % 81.7 % (40.0-70.0) H 03/31/19 04:44 Seg Neuts % (Manual) 91.0 % (40.0-70.0) H 03/28/19 18:10 Band Neutrophils % 0 % 03/28/19 18:10 Lymphocytes % (Manual) 8.0 % (13.4-35.0) L 03/28/19 18:10 Reactive Lymphs % (Man) 0 % 03/28/19 18:10 Monocytes % (Manual) 1.0 % (0.0-7.3) 03/28/19 18:10 Eosinophils % (Manual) 0 % (0.0-4.3) 03/28/19 18:10 Basophils % (Manual) 0 % (0.0-1.8) 03/28/19 18:10 Metamyelocytes % 0 % 03/28/19 18:10 Myelocytes % 0 % 03/28/19 18:10 Promyelocytes % 0 % 03/28/19 18:10 Blast Cells % 0 % 03/28/19 18:10 Nucleated RBC % Not Reportable 03/28/19 18:10 Seg Neutrophils # 9.4 K/mm3 (1.8-7.7) H 03/31/19 04:44 Seg Neutrophils # Man 22.6 K/mm3 (1.8-7.7) H 03/28/19 18:10 Band Neutrophils # 0.0 K/mm3 03/28/19 18:10 Lymphocytes # (Manual) 2.0 K/mm3 (1.2-5.4) 03/28/19 18:10 Abs React Lymphs (Man) 0.0 K/mm3 03/28/19 18:10 Monocytes # (Manual) 0.2 K/mm3 (0.0-0.8) 03/28/19 18:10 Eosinophils # (Manual) 0.0 K/mm3 (0.0-0.4) 03/28/19 18:10 Basophils # (Manual) 0.0 K/mm3 (0.0-0.1) 03/28/19 18:10 Metamyelocytes # 0.0 K/mm3 03/28/19 18:10 Myelocytes # 0.0 K/mm3 03/28/19 18:10 Promyelocytes # 0.0 K/mm3 03/28/19 18:10 Blast Cells # 0.0 K/mm3 03/28/19 18:10 WBC Morphology Not Reportable 03/28/19 18:10 Hypersegmented Neuts Not Reportable 03/28/19 18:10 Hyposegmented Neuts Not Reportable 03/28/19 18:10 Hypogranular Neuts Not Reportable 03/28/19 18:10 Smudge Cells Not Reportable 03/28/19 18:10 Toxic Granulation Not Reportable 03/28/19 18:10 Toxic Vacuolation Not Reportable 03/28/19 18:10 Dohle Bodies Not Reportable 03/28/19 18:10 Pelger-Huet Anomaly Not Reportable 03/28/19 18:10 Joyce Rods Not Reportable 03/28/19 18:10 Platelet Estimate Appears decreased 03/28/19 18:10 Clumped Platelets Not Reportable 03/28/19 18:10 Plt Clumps, EDTA Not Reportable 03/28/19 18:10 Large Platelets Not Reportable 03/28/19 18:10 Giant Platelets Not Reportable 03/28/19 18:10 Platelet Satelliting Not Reportable 03/28/19 18:10 Plt Morphology Comment Not Reportable 03/28/19 18:10 RBC Morphology Not Reportable 03/28/19 18:10 Dimorphic RBCs Not Reportable 03/28/19 18:10 Polychromasia Not Reportable 03/28/19 18:10 Hypochromasia Not Reportable 03/28/19 18:10 Poikilocytosis Not Reportable 03/28/19 18:10 Anisocytosis Few 03/28/19 18:10 Microcytosis Not Reportable 03/28/19 18:10 Macrocytosis Not Reportable 03/28/19 18:10 Spherocytes Not Reportable 03/28/19 18:10 Pappenheimer Bodies Not Reportable 03/28/19 18:10 Sickle Cells Not Reportable 03/28/19 18:10 Target Cells Not Reportable 03/28/19 18:10 Tear Drop Cells Not Reportable 03/28/19 18:10 Ovalocytes Not Reportable 03/28/19 18:10 Stomatocytes Few 03/26/19 Unknown Helmet Cells Not Reportable 03/28/19 18:10 Shrestha-Rapids Bodies Not Reportable 03/28/19 18:10 [place] Rings Not Reportable 03/28/19 18:10 [place] Cells Not Reportable 03/28/19 18:10 Bite Cells Not Reportable 03/28/19 18:10 Crenated Cell Not Reportable 03/28/19 18:10 Elliptocytes Not Reportable 03/28/19 18:10 Acanthocytes (Spur) Not Reportable 03/28/19 18:10 Rouleaux Not Reportable 03/28/19 18:10 Hemoglobin C Crystals Not Reportable 03/28/19 18:10 Schistocytes Not Reportable 03/28/19 18:10 Malaria parasites Not Reportable 03/28/19 18:10 Phil Bodies Not Reportable 03/28/19 18:10 Hem Pathologist Commnt No 03/28/19 18:10 PT 15.3 Sec. (12.2-14.9) H 03/29/19 11:48 INR 1.24 (0.87-1.13) H 03/29/19 11:48 APTT 26.6 Sec. (24.2-36.6) 03/28/19 12:00 Fibrinogen 226 mg/dl (211-480) 03/28/19 12:00 D-Dimer 4845.98 ng/mlDDU (0-234) H 03/28/19 12:00 Heparin Anti-Xa Level 0.23 U.I./ml (0.3-0.7) L 03/28/19 05:13 POC ABG pH 7.447 (7.35-7.45) 03/31/19 05:44 ABG pH 7.326 pH Units (7.350-7.450) L 03/26/19 04:30 POC ABG pCO2 53.5 (35-45) H 03/31/19 05:44 ABG pCO2 36.4 mm Hg 03/26/19 04:30 POC ABG pO2 62 (80-105) L 03/31/19 05:44 ABG pO2 137.4 mm Hg (80.0-90.0) H 03/26/19 04:30 POC ABG HCO3 36.9 (22-26 mml/L) 03/31/19 05:44 ABG HCO3 18.6 mmol/L (20.0-26.0) L 03/26/19 04:30 POC ABG Total CO2 38 (23-27mmol/L) 03/31/19 05:44 POC ABG O2 Sat 92 03/31/19 05:44 ABG O2 Saturation 98.6 % (95.0-99.0) 03/26/19 04:30 ABG O2 Content 13.7 (0.0-44) 03/26/19 04:30 POC ABG Base Excess 13 ((-2) - (+3)mmol/L) 03/31/19 05:44 ABG Base Excess -6.8 mmol/L (-2.0-3.0) L 03/26/19 04:30 ABG Hemoglobin 9.9 gm/dl (14.0-18.0) L 03/26/19 04:30 ABG Carboxyhemoglobin 1.4 % (0.0-5.0) 03/26/19 04:30 ABG Methemoglobin 0.6 % (0.0-1.5) 03/26/19 04:30 Oxyhemoglobin 96.5 % (95.0-99.0) 03/26/19 04:30 FiO2 40 % 03/31/19 05:44 Sodium 135 mmol/L (137-145) L 03/31/19 04:44 Potassium 4.8 mmol/L (3.6-5.0) 03/31/19 04:44 Chloride 96.7 mmol/L (98-107) L 03/31/19 04:44 Carbon Dioxide 19 mmol/L (22-30) L 03/31/19 04:44 Anion Gap 24 mmol/L 03/31/19 04:44 BUN 94 mg/dL (9-20) H 03/31/19 04:44 Creatinine 7.8 mg/dL (0.8-1.5) H 03/31/19 04:44 Estimated GFR 9 ml/min 03/31/19 04:44 BUN/Creatinine Ratio 12 % 03/31/19 04:44 Glucose 79 mg/dL (75-100) 03/31/19 04:44 POC Glucose 93 (70-105) 03/31/19 05:29 Lactic Acid 1.90 mmol/L (0.7-2.0) 03/21/19 21:31 Calcium 5.3 mg/dL (8.4-10.2) L* 03/31/19 04:44 Phosphorus 8.20 mg/dL (2.5-4.5) H 03/31/19 04:44 Magnesium 2.40 mg/dL (1.7-2.3) H 03/18/19 08:40 Total Bilirubin 0.50 mg/dL (0.1-1.2) 03/31/19 08:20 Direct Bilirubin 0.4 mg/dL (0-0.2) H 03/31/19 08:20 Indirect Bilirubin 0.1 mg/dL 03/31/19 08:20 AST 60 units/L (5-40) H 03/31/19 08:20 ALT 30 units/L (7-56) 03/31/19 08:20 Alkaline Phosphatase 59 units/L (35-129) 03/31/19 08:20 Total Creatine Kinase 3401 units/L (55-170) H 03/29/19 06:22 CK-MB (CK-2) 54.3 ng/mL (0.0-4.0) H 03/17/19 07:16 CK-MB (CK-2) Rel Index 0.0 (0-4) 03/17/19 07:16 Troponin T 0.058 ng/mL (0.00-0.029) H 03/17/19 07:16 C-Reactive Protein 13.30 mg/dL (0.00-1.30) H 03/20/19 14:45 Total Protein 4.8 g/dL (6.3-8.2) L 03/31/19 08:20 Albumin 2.1 g/dL (3.9-5) L 03/31/19 08:20 Albumin/Globulin Ratio 0.8 % 03/31/19 08:20 Triglycerides 309 mg/dL (2-149) H 03/29/19 06:22 Cholesterol 88 mg/dL (50-199) 03/16/19 22:32 LDL Cholesterol Direct 10 mg/dL (50-130) L 03/16/19 22:32 HDL Cholesterol 7 mg/dL (40-59) L 03/16/19 22:32 Cholesterol/HDL Ratio 12.57 % 03/16/19 22:32 Procalcitonin 25.42 ng/mL (<0.15) 03/27/19 19:21 TSH 2.200 mlU/mL (0.270-4.200) 03/16/19 17:05 Free T4 0.72 ng/dL (0.76-1.46) L 03/16/19 17:05 PTH Intact 329.9 pg/mL (15-65) H 03/25/19 05:00 Urine Color Kathy (Yellow) 03/17/19 16:05 Urine Turbidity Cloudy (Clear) 03/17/19 16:05 Urine pH 5.0 (5.0-7.0) 03/17/19 16:05 Ur Specific [place] 1.014 (1.003-1.030) 03/17/19 16:05 Urine Protein >500 mg/dL (Negative) 03/17/19 16:05 Urine Glucose (UA) 50 mg/dL (Negative) 03/17/19 16:05 Urine Ketones Tr mg/dL (Negative) 03/17/19 16:05 Urine Blood Lg (Negative) 03/17/19 16:05 Urine Nitrite Neg (Negative) 03/17/19 16:05 Urine Bilirubin Neg (Negative) 03/17/19 16:05 Urine Urobilinogen < 2.0 mg/dL (<2.0) 03/17/19 16:05 Ur Leukocyte Esterase Mod (Negative) 03/17/19 16:05 Urine WBC (Auto) 30.0 /HPF (0.0-6.0) H 03/17/19 16:05 Urine RBC (Auto) 11.0 /HPF (0.0-6.0) 03/17/19 16:05 U Epithel Cells (Auto) < 1.0 /HPF (0-13.0) 03/17/19 16:05 Urine Mucus Few /HPF 03/17/19 16:05 Urine Sperm 2+ /HPF (DEVELOPMENT PROFESSIONAL) 03/17/19 16:05 Urine Eosinophils None seen (None Seen) 03/17/19 16:05 Urine Creatinine 106.6 mg/dL (0.1-20.0) H 03/17/19 16:05 Urine Sodium 95 mmol/L 03/17/19 16:05 Vancomycin Trough 11.5 ug/mL (5.0-20.0) 03/18/19 13:19 Random Vancomycin 16.6 ug/mL (0-40.0) 03/30/19 04:31 Salicylates < 0.3 mg/dL (2.8-20.0) L 03/16/19 17:05 Urine Opiates Screen Presumptive negative 03/17/19 16:05 Urine Methadone Screen Presumptive negative 03/17/19 16:05 Acetaminophen < 5.0 ug/mL (10.0-30.0) L 03/16/19 17:05 Ur Barbiturates Screen Presumptive negative 03/17/19 16:05 Ur Phencyclidine Scrn Presumptive negative 03/17/19 16:05 Ur Amphetamines Screen Presumptive negative 03/17/19 16:05 U Benzodiazepines Scrn Presumptive positive 03/17/19 16:05 Urine Cocaine Screen Presumptive negative 03/17/19 16:05 U Marijuana (THC) Screen Presumptive negative 03/17/19 16:05 Drugs of Abuse Note Disclamer 03/17/19 16:05 Plasma/Serum Alcohol < 0.01 % (0-0.07) 03/16/19 17:05 Hepatitis A IgM Ab Non-reactive (NonReactive) 03/18/19 13:18 Hep Bs Antigen Non-reactive (Negative) 03/18/19 13:18 Hep B Core IgM Ab Non-reactive (NonReactive) 03/18/19 13:18 Hepatitis C Antibody Non-reactive (NonReactive) 03/18/19 13:18 HIV 1&2 Antibody Rapid Non react (Non React) 03/17/19 11:52 HIV P24 Antigen Non react (Non React) 03/17/19 11:52 Influenza A (Rapid) Negative (Negative) 03/17/19 17:00 Influenza B (Rapid) Negative (Negative) 03/17/19 17:00 Group A Strep Rapid Negative (Negative) 03/17/19 17:00 Blood Type A POSITIVE 03/28/19 10:00 Antibody Screen Negative 03/28/19 10:00 Crossmatch See Detail 03/28/19 10:00 Active Medications - Current Medications Current Medications: Generic Name Dose Route Start Last Admin Trade Name Freq PRN Reason Stop Dose Admin Acetaminophen 650 mg 03/26/19 22:15 03/30/19 16:19 Tylenol PO 650 mg Q4H PRN Administration Pain, Mild (1-3), [id number]> Acetaminophen 650 mg 03/29/19 19:51 03/31/19 08:39 Tylenol [place] 650 mg Q4H PRN Administration Fever > 100.5 Albuterol 2.5 mg 03/29/19 13:08 Proventil IH Q4HRT PRN Shortness Of Breath Lipase/Protease/Amylase 1 each 03/17/19 14:[address] 10,500 Unit FEEDTUBE PRN PRN For Clogged Feeding Tube Calcium Acetate 1,334 mg 03/31/19 14:00 Phoslo PO TID PAOLO Calcium Chloride 1,000 mg 03/31/19 08:00 03/31/19 08:30 Calcium Chloride IVP 03/31/19 14:01 1,000 mg Q6H PAOLO Administration Dextrose 50 gm 03/19/19 18:39 03/26/19 23:26 D50w (25gm) Vial IV 50 gm PRN PRN Administration Hypoglycemia Epoetin Jet 20,000 unit 03/31/19 10:15 Procrit SUB-Q NEYMAR PRN hemodialysis Fentanyl 50 mcg 03/26/19 12:00 03/27/19 13:47 Sublimaze IV 50 mcg Q1H PRN Administration Pain, Moderate (4-6) Hydrophilic Ointment 1 applic 03/16/19 15:50 Vaseline Lip Therapy TP Q2HR PRN Dry Lips Phenylephrine HCl 100 mg/ 100 mls @ 3 mls/hr 03/17/19 02:30 03/19/19 18:48 Sodium Chloride IV Infused TITR PAOLO Titration Protocol 50 MCG/MIN Fentanyl Citrate 2,000 mcg in 100 mls @ 7.85 mls/hr 03/26/19 12:00 03/31/19 10:14 Fentanyl Drip Premix IV 3 mcg/kg/hr TITR PAOLO 23.55 mls/hr Administration Protocol 1 MCG/KG/HR Cefepime HCl 2 gm in 100 mls @ 200 mls/hr 03/27/19 14:00 03/30/19 15:21 Maxipime/Ns 2 Gm/100 Ml IV 200 mls/hr Q24H PAOLO Administration Protocol Norepinephrine 4 mg in 250 mls @ 7.5 mls/hr 03/27/19 22:16 03/31/19 10:33 Levophed Drip 4 Mg/Ns 250 Ml IV 2 mcg/min TITR PAOLO 7.5 mls/hr Titration Protocol 2 MCG/MIN Pantoprazole Sodium 80 mg/ 100 mls @ 10 mls/hr 03/28/19 09:30 03/31/19 03:18 Sodium Chloride IV 8 mg/hr DIRECT PAOLO 10 mls/hr Administration 8 MG/HR Vasopressin 20 unit/ Sodium 101 mls @ 9.09 mls/hr 03/28/19 09:00 03/28/19 15:38 Chloride IV 0 units/min TITR PAOLO 0 mls/hr Titration Protocol 0.03 UNITS/MIN Sodium Chloride 100 mls @ 999 mls/hr 03/29/19 15:30 Nacl 0.9% IV NEYMAR PRN Hypotension Amiodarone HCl 900 mg/ 500 mls @ 16.667 mls/hr 03/30/19 13:00 03/30/19 15:59 Dextrose IV 0.5 mg/min DIRECT PAOLO 16.667 mls/hr Administration Protocol 0.5 MG/MIN Sodium Chloride 1,000 mls @ 50 mls/hr 03/30/19 13:00 03/30/19 21:45 Nacl 0.9% 1000 Ml IV 50 mls/hr DIRECT PAOLO Administration Sodium Chloride 100 mls @ 999 mls/hr 03/31/19 10:15 Nacl 0.9% IV NEYMAR PRN Hypotension Lorazepam 2 mg 03/26/19 11:54 03/31/19 10:15 Ativan IV 2 mg Q1H PRN Administration Agitation Metoprolol Tartrate 25 mg 03/28/19 14:00 03/31/19 08:18 Lopressor PO Not Given TID PAOLO Multi-Ingred Cream/Lotion/Oil/Oint 1 applic 03/16/19 15:50 03/19/19 20:10 Artificial Tears Ophth Oint OU 1 applic Q4HR PRN Administration Dry Eye(s) Ondansetron HCl 4 mg 03/16/19 22:21 Zofran IV Q8H PRN Nausea And Vomiting Paricalcitol 2 mcg 03/30/19 10:00 03/31/19 10:15 Zemplar IV 2 mcg DAILY PAOLO Administration Simple Syrup 15 ml 03/17/19 14:45 03/26/19 23:19 Simple Syrup FEEDTUBE 15 ml PRN PRN Administration Hypoglycemia Simple Syrup 30 ml 03/17/19 14:45 Simple Syrup FEEDTUBE PRN PRN Hypoglycemia Sodium Bicarbonate 325 mg 03/17/19 14:45 Sodium Bicarbonate FEEDTUBE PRN PRN For Clogged Feeding Tube Nutrition/Malnutrition Assess - Dietary Evaluation Nutrition/Malnutrition Findings: Nutrition Notes Start: 03/17/19 14:22 Freq: Status: Active Protocol: Document 03/29/19 13:35 AIYANA (Rec: 03/29/19 14:13 AIYANA [email or web address]) Co-Sign 03/29/19 13:35 Nutrition Notes Initial or Follow up Reassessment Current Diagnosis Acute Kidney Injury Other Pertinent Diagnosis on HD, Septic shock,Multiple organ failure, encephalopathy, rhabdomyolysis Current Diet Nepro with Carbsteady at 55ml/ hr Labs/Tests Na 133 Cl 93.8 BUN 109 Cr 7.4 Pertinent Medications Vasopressin Height 6 ft Weight 157.3 kg [place] Body Weight (kg) 80.90 BMI 47.0 Subjective/Other Information F/U for TF tolerance at goal rate. Pt TF was stopped due to GI bleed Percent of energy/protein needs met: 0%/0% Burn Absent Trauma Absent Minimum of two criteria No #1 Nutrition Diagnosis Inadequate oral intake Diagnosis Progress(for reassessment Continues documentation) Is patient on ventilator? Yes Is Patient Ambulatory and/or Out of Bed No [facility] 2997.636 Kcal/Kg value to use for calculation 14 Approximate Energy Requirements Using 2202 kcal/Kg Calculation Used for Recommendations Kcal/kg Additional Notes Protein Needs: 202g (2.5g/kg IBW 80.9) Fluid Needs: 1 ml/kcal or per MD Nutrition Intervention Change Diet Order: Advance diet when medically feasible Nutrition Support: Nepro 1.8 at 55 ml/hr Flush 100 ml q4hr for hyponatremia Kcal 2,376 Protein (gm) 107 Fluid (mL) 960 Goal #1 TF restart when medically feasible Anticipated Discharge Needs: Unable to determine at this time Follow-Up By: 04/02/19 Additional Comments F/U for TF restart, POC
--- NOTE | 2019-03-31 13:28 | Progress Note ---
Assessment and Plan 1. Acute kidney injury: Vasomotor RUBEN in the setting of shock / volume depletion / Rhabdo. Baseline renal function is unknown. Patient remain anuric / oliguric. CT abdomen was negative for obstructive nephropathy. Monitor renal function. Renal prognosis is guarded. Avoid nephrotoxic agents. Meds dosage based on GFR. Patient was started on hemodialysis on 03/18/19 due to worsening metabolic acidosis and hyperkalemia. Hemodialysis: 03/18, 03/19, 03/20, 03/22, 03/23, 03/24, 03/26, 03/28, 03/29, 03/31. 2. FEN: Hyperkalemia, s/p HD. Hyponatremia, monitor. Metabolic acidosis, monitor. Volume overload, UF with HD as tolerated. Hypocalcemia, likely multifactorial. Replete Calcium. Monitor lytes. 3. Septic shock: Followed by ID. Currently on Levophed. 4. Rhabdomyolysis: Follow CK level. 5. SVT / V.tach: Followed by Cards. 6. Respiratory failure: On vent. 7. Severe anemia: S/p PRBC. On Epogen. 8. Elevated transaminases. 9. Encephalopathy. Examination: General appearance: well-developed, appears stated age, obese, intubated, on vent HEENT: Atraumatic EYES: Pupils reacting to light Neck: supple Respiratory: coarse breath sounds Cardiology: regular, S1S2 heard, no murmur Gastrointestinal: no tenderness, obese, BS heard, scrotal edema noted Integumentary: no rash noted Neurologic: opens eyes Ext: trace edema of all 4 extremities Hemodialysis access: R IJ temp catheter Subjective Date of service: 03/31/19 Principal diagnosis: anemia - IJ dvt - bleeding Interval history: Patient was seen and examined at the bedside. Remain on the vent. Objective - Vital Signs Vital signs: Vital Signs - 12hr 03/31/19 03/31/19 03/31/19 01:30 01:45 02:00 Temperature Pulse Rate 92 H 95 H 90 Pulse Rate [ From Monitor] Respiratory 14 23 16 Rate Blood Pressure 129/56 113/53 107/44 O2 Sat by Pulse 92 90 96 Oximetry 03/31/19 03/31/19 03/31/19 02:15 02:30 02:45 Temperature Pulse Rate 90 93 H 87 Pulse Rate [ From Monitor] Respiratory 19 19 20 Rate Blood Pressure 112/47 115/53 100/41 O2 Sat by Pulse 87 93 93 Oximetry 03/31/19 03/31/19 03/31/19 03:00 03:15 03:30 Temperature Pulse Rate 85 84 83 Pulse Rate [ From Monitor] Respiratory 19 19 20 Rate Blood Pressure 98/39 99/36 106/45 O2 Sat by Pulse 94 94 96 Oximetry 03/31/19 03/31/19 03/31/19 03:37 03:45 04:00 Temperature 99.9 F H Pulse Rate 84 83 Pulse Rate [ 83 From Monitor] Respiratory 18 19 Rate Blood Pressure 111/47 111/47 O2 Sat by Pulse 97 96 Oximetry 03/31/19 03/31/19 03/31/19 04:15 04:30 04:45 Temperature Pulse Rate 81 86 89 Pulse Rate [ From Monitor] Respiratory 20 16 20 Rate Blood Pressure 98/40 95/51 116/56 O2 Sat by Pulse 97 96 95 Oximetry 03/31/19 03/31/19 03/31/19 05:00 05:15 05:27 Temperature Pulse Rate 85 88 87 Pulse Rate [ From Monitor] Respiratory 19 18 Rate Blood Pressure 111/47 120/53 120/53 O2 Sat by Pulse 96 97 Oximetry 03/31/19 03/31/19 03/31/19 05:30 05:45 06:00 Temperature Pulse Rate 87 85 92 H Pulse Rate [ From Monitor] Respiratory 20 20 20 Rate Blood Pressure 114/51 111/46 123/59 O2 Sat by Pulse 96 96 96 Oximetry 03/31/19 03/31/19 03/31/19 06:15 06:30 06:45 Temperature Pulse Rate 89 92 H 94 H Pulse Rate [ From Monitor] Respiratory 20 24 19 Rate Blood Pressure 110/53 99/63 122/64 O2 Sat by Pulse 96 96 94 Oximetry 03/31/19 03/31/19 03/31/19 07:00 07:15 07:30 Temperature Pulse Rate 94 H 89 91 H Pulse Rate [ From Monitor] Respiratory 18 20 20 Rate Blood Pressure 122/65 120/57 129/63 O2 Sat by Pulse 96 91 97 Oximetry 03/31/19 03/31/19 03/31/19 07:45 08:00 08:15 Temperature 100.6 F H Pulse Rate 89 91 H 93 H Pulse Rate [ 86 From Monitor] Respiratory 21 20 20 Rate Blood Pressure 120/56 112/44 125/62 O2 Sat by Pulse 94 96 92 Oximetry 03/31/19 03/31/19 03/31/19 08:18 08:30 08:45 Temperature Pulse Rate 86 86 97 H Pulse Rate [ From Monitor] Respiratory 20 15 Rate Blood Pressure 125/62 118/52 119/78 O2 Sat by Pulse 96 95 Oximetry 03/31/19 03/31/19 03/31/19 09:00 09:15 09:30 Temperature Pulse Rate 84 94 H 96 H Pulse Rate [ From Monitor] Respiratory 9 L 16 14 Rate Blood Pressure 112/44 130/66 129/66 O2 Sat by Pulse 96 95 94 Oximetry 03/31/19 03/31/19 03/31/19 09:45 10:00 10:15 Temperature Pulse Rate 92 H 89 87 Pulse Rate [ From Monitor] Respiratory 22 15 19 Rate Blood Pressure 125/55 127/52 122/46 O2 Sat by Pulse 88 74 L 87 Oximetry 03/31/19 03/31/19 03/31/19 10:30 10:45 11:00 Temperature Pulse Rate 90 88 86 Pulse Rate [ From Monitor] Respiratory 20 20 21 Rate Blood Pressure 108/36 111/37 100/33 O2 Sat by Pulse 92 95 97 Oximetry 03/31/19 03/31/19 03/31/19 11:15 11:30 11:45 Temperature Pulse Rate 85 82 81 Pulse Rate [ From Monitor] Respiratory 20 20 17 Rate Blood Pressure 103/38 104/40 109/42 O2 Sat by Pulse 99 99 99 Oximetry 03/31/19 03/31/19 03/31/19 11:46 12:00 12:15 Temperature 100.7 F H Pulse Rate 85 82 Pulse Rate [ 83 From Monitor] Respiratory 19 20 Rate Blood Pressure 128/57 127/52 O2 Sat by Pulse 100 99 Oximetry 03/31/19 03/31/19 03/31/19 12:29 12:30 12:45 Temperature 100.7 F H Pulse Rate 80 79 Pulse Rate [ From Monitor] Respiratory 20 20 Rate Blood Pressure 128/51 123/49 O2 Sat by Pulse 98 98 Oximetry 03/31/19 13:00 Temperature Pulse Rate 79 Pulse Rate [ From Monitor] Respiratory 20 Rate Blood Pressure 123/50 O2 Sat by Pulse 98 Oximetry - Lab 03/31/19 04:44 03/31/19 04:44 Most recent lab results ABG pH 7.326 pH Units (7.350-7.450) L 03/26/19 04:30 ABG pCO2 36.4 mm Hg 03/26/19 04:30 ABG pO2 137.4 mm Hg (80.0-90.0) H 03/26/19 04:30 ABG HCO3 18.6 mmol/L (20.0-26.0) L 03/26/19 04:30 ABG O2 Saturation 98.6 % (95.0-99.0) 03/26/19 04:30 Calcium 5.3 mg/dL (8.4-10.2) L* 03/31/19 04:44 Phosphorus 8.20 mg/dL (2.5-4.5) H 03/31/19 04:44 Magnesium 2.40 mg/dL (1.7-2.3) H 03/18/19 08:40 Urine Creatinine 106.6 mg/dL (0.1-20.0) H 03/17/19 16:05 Urine Sodium 95 mmol/L 03/17/19 16:05 Medications & Allergies - Medications Allergies/Adverse Reactions: Allergies No Known Allergies Allergy (Unverified 03/16/19 17:17) Home Medications: Home Medications Medication Instructions Recorded Confirmed Last Taken Type Unobtainable 03/18/19 03/18/19 Unknown History Active Medications: Generic Name Dose Route Start Last Admin Trade Name Freq PRN Reason Stop Dose Admin Acetaminophen 650 mg 03/26/19 22:15 03/30/19 16:19 Tylenol PO 650 mg Q4H PRN Administration Pain, Mild (1-3), [id number]> Acetaminophen 650 mg 03/29/19 19:51 03/31/19 08:39 Tylenol [place] 650 mg Q4H PRN Administration Fever > 100.5 Albuterol 2.5 mg 03/29/19 13:08 Proventil IH Q4HRT PRN Shortness Of Breath Lipase/Protease/Amylase 1 each 03/17/19 14:45 Pancreaze 10,500 Unit FEEDTUBE PRN PRN For Clogged Feeding Tube Calcium Acetate 1,334 mg 03/31/19 14:00 Phoslo PO TID PAOLO Calcium Chloride 1,000 mg 03/31/19 08:00 03/31/19 08:30 Calcium Chloride IVP 03/31/19 14:01 1,000 mg Q6H PAOLO Administration Dextrose 50 gm 03/19/19 18:39 03/26/19 23:26 D50w (25gm) Vial IV 50 gm PRN PRN Administration Hypoglycemia Epoetin Jet 20,000 unit 03/31/19 10:15 Procrit SUB-Q NEYMAR PRN hemodialysis Fentanyl 50 mcg 03/26/19 12:00 03/27/19 13:47 Sublimaze IV 50 mcg Q1H PRN Administration Pain, Moderate (4-6) Hydrophilic Ointment 1 applic 03/16/19 15:50 Vaseline Lip Therapy TP Q2HR PRN Dry Lips Phenylephrine HCl 100 mg/ 100 mls @ 3 mls/hr 03/17/19 02:30 03/19/19 18:48 Sodium Chloride IV Infused TITR PAOLO Titration Protocol 50 MCG/MIN Fentanyl Citrate 2,000 mcg in 100 mls @ 7.85 mls/hr 03/26/19 12:00 03/31/19 10:14 Fentanyl Drip Premix IV 3 mcg/kg/hr TITR PAOLO 23.55 mls/hr Administration Protocol 1 MCG/KG/HR Cefepime HCl 2 gm in 100 mls @ 200 mls/hr 03/27/19 14:00 03/30/19 15:21 Maxipime/Ns 2 Gm/100 Ml IV 200 mls/hr Q24H PAOLO Administration Protocol Norepinephrine 4 mg in 250 mls @ 7.5 mls/hr 03/27/19 22:16 03/31/19 11:38 Levophed Drip 4 Mg/Ns 250 Ml IV 6 mcg/min TITR PAOLO 22.5 mls/hr Titration Protocol 2 MCG/MIN Pantoprazole Sodium 80 mg/ 100 mls @ 10 mls/hr 03/28/19 09:30 03/31/19 03:18 Sodium Chloride IV 8 mg/hr DIRECT PAOLO 10 mls/hr Administration 8 MG/HR Vasopressin 20 unit/ Sodium 101 mls @ 9.09 mls/hr 03/28/19 09:00 03/28/19 15:38 Chloride IV 0 units/min TITR PAOLO 0 mls/hr Titration Protocol 0.03 UNITS/MIN Sodium Chloride 100 mls @ 999 mls/hr 03/29/19 15:30 Nacl 0.9% IV NEYMAR PRN Hypotension Amiodarone HCl 900 mg/ 500 mls @ 16.667 mls/hr 03/30/19 13:00 03/30/19 15:59 Dextrose IV 0.5 mg/min DIRECT PAOLO 16.667 mls/hr Administration Protocol 0.5 MG/MIN Sodium Chloride 1,000 mls @ 50 mls/hr 03/30/19 13:00 03/30/19 21:45 Nacl 0.9% 1000 Ml IV 50 mls/hr DIRECT PAOLO Administration Sodium Chloride 100 mls @ 999 mls/hr 03/31/19 10:15 Nacl 0.9% IV NEYMAR PRN Hypotension Lorazepam 2 mg 03/26/19 11:54 03/31/19 10:15 Ativan IV 2 mg Q1H PRN Administration Agitation Metoprolol Tartrate 25 mg 03/28/19 14:00 03/31/19 08:18 Lopressor PO Not Given TID PAOLO Multi-Ingred Cream/Lotion/Oil/Oint 1 applic 03/16/19 15:50 03/19/19 20:10 Artificial Tears Ophth Oint OU 1 applic Q4HR PRN Administration Dry Eye(s) Ondansetron HCl 4 mg 03/16/19 22:21 Zofran IV Q8H PRN Nausea And Vomiting Paricalcitol 2 mcg 03/30/19 10:00 03/31/19 10:15 Zemplar IV 2 mcg DAILY PAOLO Administration Simple Syrup 15 ml 03/17/19 14:45 03/26/19 23:19 Simple Syrup FEEDTUBE 15 ml PRN PRN Administration Hypoglycemia Simple Syrup 30 ml 03/17/19 14:45 Simple Syrup FEEDTUBE PRN PRN Hypoglycemia Sodium Bicarbonate 325 mg 03/17/19 14:45 Sodium Bicarbonate FEEDTUBE PRN PRN For Clogged Feeding Tube
[2019-03-31] MEDS: CEFEPIME/NS 2 GM/100 ML 2 GM/100 ML BAG IV SCH (13:29)
--- NOTE | 2019-03-31 13:53 | Gastroenterology Progress Note ---
Assessment and Plan GI: pt w/ UGI bleed w/ noted PUD with larger ulcer with clot requiring treatment on EGD - no further signs bleeding overnight, labs unchanged - continue PPI IV, follow h/h - ok to start tube feeds - will follow closely Subjective Date of service: 03/31/19 Principal diagnosis: anemia - IJ dvt - bleeding Interval history: - no further signs bleeding overnight per staff Objective - Exam Narrative Exam: intubated, sedated - Constitutional Vitals: Temp Pulse Resp BP Pulse Ox 100.7 F H 79 20 123/50 98 03/31/19 12:29 03/31/19 13:00 03/31/19 13:00 03/31/19 13:00 03/31/19 13:00 General appearance: no acute distress - EENT Eyes: PERRL - Respiratory Respiratory: bilateral: CTA - Cardiovascular Rhythm: regular Heart Sounds: Present: S1 & S2 - Gastrointestinal General gastrointestinal: Present: soft, tender, non-distended - Labs CBC & Chem 7: 03/31/19 04:44 03/31/19 04:44 Labs: Laboratory Results - last 24 hr 03/28/19 03/30/19 03/30/19 10:00 17:20 22:43 WBC RBC Hgb 7.4 L Hct 22.3 L MCV MCH MCHC RDW Plt Count Lymph % (Auto) [place] % (Auto) Eos % (Auto) Baso % (Auto) Lymph # [place] # Eos # Baso # Seg Neutrophils % Seg Neutrophils # POC ABG pH POC ABG pCO2 POC ABG pO2 POC ABG HCO3 POC ABG Total CO2 POC ABG O2 Sat POC ABG Base Excess FiO2 Sodium Potassium Chloride Carbon Dioxide Anion Gap BUN Creatinine Estimated GFR BUN/Creatinine Ratio Glucose POC Glucose 89 Calcium Phosphorus Total Bilirubin Direct Bilirubin Indirect Bilirubin AST ALT Alkaline Phosphatase Total Protein Albumin Albumin/Globulin Ratio Blood Type A POSITIVE Antibody Screen Negative Crossmatch See Detail 03/30/19 03/30/19 03/31/19 23:38 Unknown 04:44 WBC 11.5 H RBC 2.40 L Hgb 7.3 L Hct 21.9 L MCV 91 MCH 30 MCHC 33 RDW 15.4 H Plt Count 159 Lymph % (Auto) 10.6 L [place] % (Auto) 6.1 Eos % (Auto) 0.8 Baso % (Auto) 0.8 Lymph # 1.2 [place] # 0.7 Eos # 0.1 Baso # 0.1 Seg Neutrophils % 81.7 H Seg Neutrophils # 9.4 H POC ABG pH POC ABG pCO2 POC ABG pO2 POC ABG HCO3 POC ABG Total CO2 POC ABG O2 Sat POC ABG Base Excess FiO2 Sodium Potassium Chloride Carbon Dioxide Anion Gap BUN Creatinine Estimated GFR BUN/Creatinine Ratio Glucose POC Glucose 155 H Calcium Phosphorus Total Bilirubin 0.60 Direct Bilirubin 0.4 H Indirect Bilirubin 0.2 AST 63 H ALT 31 Alkaline Phosphatase 65 Total Protein 4.9 L Albumin 2.2 L Albumin/Globulin Ratio 0.8 Blood Type Antibody Screen Crossmatch 03/31/19 03/31/19 03/31/19 04:44 05:29 05:44 WBC RBC Hgb Hct MCV MCH MCHC RDW Plt Count Lymph % (Auto) [place] % (Auto) Eos % (Auto) Baso % (Auto) Lymph # [place] # Eos # Baso # Seg Neutrophils % Seg Neutrophils # POC ABG pH 7.447 POC ABG pCO2 53.5 H POC ABG pO2 62 L POC ABG HCO3 36.9 POC ABG Total CO2 38 POC ABG O2 Sat 92 POC ABG Base Excess 13 FiO2 40 Sodium 135 L Potassium 4.8 Chloride 96.7 L Carbon Dioxide 19 L Anion Gap 24 BUN 94 H Creatinine 7.8 H Estimated GFR 9 BUN/Creatinine Ratio 12 Glucose 79 POC Glucose 93 Calcium 5.3 L* Phosphorus 8.20 H Total Bilirubin Direct Bilirubin Indirect Bilirubin AST ALT Alkaline Phosphatase Total Protein Albumin Albumin/Globulin Ratio Blood Type Antibody Screen Crossmatch 03/31/19 03/31/19 08:20 11:52 WBC RBC Hgb Hct MCV MCH MCHC RDW Plt Count Lymph % (Auto) [place] % (Auto) Eos % (Auto) Baso % (Auto) Lymph # [place] # Eos # Baso # Seg Neutrophils % Seg Neutrophils # POC ABG pH POC ABG pCO2 POC ABG pO2 POC ABG HCO3 POC ABG Total CO2 POC ABG O2 Sat POC ABG Base Excess FiO2 Sodium Potassium Chloride Carbon Dioxide Anion Gap BUN Creatinine Estimated GFR BUN/Creatinine Ratio Glucose POC Glucose 90 Calcium Phosphorus Total Bilirubin 0.50 Direct Bilirubin 0.4 H Indirect Bilirubin 0.1 AST 60 H ALT 30 Alkaline Phosphatase 59 Total Protein 4.8 L Albumin 2.1 L Albumin/Globulin Ratio 0.8 Blood Type Antibody Screen Crossmatch
--- NOTE | 2019-03-31 13:59 | Hem/Onc Progress Note ---
Assessment and Plan 1. Anemia. The patient has history of bleeding. 2. Internal jugular partial thrombosis. The patient was started on heparin. This has been held due to bleeding 3. Gastrointestinal bleed. 4. h/o Elevated creatinine kinase. 5. h/o Low calcium. 6. h/o Thrombocytopenia. 7. h/o Renal failure. 8. Intubation. 9. Transfusion support. 10. Leukocytosis. At this time, supportive care may help the patient. The patient's platelet has been low since admission. Urine toxicology was negative. awake - follows command - on vent off anticoagulation d/w dr Gabriel - Patient Problems (1) DVT (deep venous thrombosis) Current Visit: Yes Status: Acute Subjective Date of service: 03/31/19 Principal diagnosis: anemia - IJ DVT Interval history: on vent - no bleeding Objective - Exam Narrative Exam: Pain - intubated General appearance - awake - on vent Performance status complete dependence Eyes - no icterus ENT - intubated LNs cervical not palpable Neck - no LN Respiratory Normal Breath sounds - CTA anteriorly CVS S1 S2 + Extremities edema + General GI Soft Rectal deferred male - deferred Skin warm Musculoskeletal awake - on vent Neurologically awake - nods to questions - Constitutional Vitals: Last Vital Signs Temp 100.7 F H 03/31/19 12:29 Pulse 79 03/31/19 13:00 Resp 20 03/31/19 13:00 BP 123/50 03/31/19 13:00 Pulse Ox 98 03/31/19 13:00 - Labs Lab Results: Laboratory Results - last 24 hr 03/28/19 03/30/19 03/30/19 10:00 17:20 22:43 WBC RBC Hgb 7.4 L Hct 22.3 L MCV MCH MCHC RDW Plt Count Lymph % (Auto) [place] % (Auto) Eos % (Auto) Baso % (Auto) Lymph # [place] # Eos # Baso # Seg Neutrophils % Seg Neutrophils # POC ABG pH POC ABG pCO2 POC ABG pO2 POC ABG HCO3 POC ABG Total CO2 POC ABG O2 Sat POC ABG Base Excess FiO2 Sodium Potassium Chloride Carbon Dioxide Anion Gap BUN Creatinine Estimated GFR BUN/Creatinine Ratio Glucose POC Glucose 89 Calcium Phosphorus Total Bilirubin Direct Bilirubin Indirect Bilirubin AST ALT Alkaline Phosphatase Total Protein Albumin Albumin/Globulin Ratio Blood Type A POSITIVE Antibody Screen Negative Crossmatch See Detail 03/30/19 03/31/19 03/31/19 23:38 04:44 04:44 WBC 11.5 H RBC 2.40 L Hgb 7.3 L Hct 21.9 L MCV 91 MCH 30 MCHC 33 RDW 15.4 H Plt Count 159 Lymph % (Auto) 10.6 L [place] % (Auto) 6.1 Eos % (Auto) 0.8 Baso % (Auto) 0.8 Lymph # 1.2 [place] # 0.7 Eos # 0.1 Baso # 0.1 Seg Neutrophils % 81.7 H Seg Neutrophils # 9.4 H POC ABG pH POC ABG pCO2 POC ABG pO2 POC ABG HCO3 POC ABG Total CO2 POC ABG O2 Sat POC ABG Base Excess FiO2 Sodium 135 L Potassium 4.8 Chloride 96.7 L Carbon Dioxide 19 L Anion Gap 24 BUN 94 H Creatinine 7.8 H Estimated GFR 9 BUN/Creatinine Ratio 12 Glucose 79 POC Glucose 155 H Calcium 5.3 L* Phosphorus 8.20 H Total Bilirubin Direct Bilirubin Indirect Bilirubin AST ALT Alkaline Phosphatase Total Protein Albumin Albumin/Globulin Ratio Blood Type Antibody Screen Crossmatch 03/31/19 03/31/19 03/31/19 05:29 05:44 08:20 WBC RBC Hgb Hct MCV MCH MCHC RDW Plt Count Lymph % (Auto) [place] % (Auto) Eos % (Auto) Baso % (Auto) Lymph # [place] # Eos # Baso # Seg Neutrophils % Seg Neutrophils # POC ABG pH 7.447 POC ABG pCO2 53.5 H POC ABG pO2 62 L POC ABG HCO3 36.9 POC ABG Total CO2 38 POC ABG O2 Sat 92 POC ABG Base Excess 13 FiO2 40 Sodium Potassium Chloride Carbon Dioxide Anion Gap BUN Creatinine Estimated GFR BUN/Creatinine Ratio Glucose POC Glucose 93 Calcium Phosphorus Total Bilirubin 0.50 Direct Bilirubin 0.4 H Indirect Bilirubin 0.1 AST 60 H ALT 30 Alkaline Phosphatase 59 Total Protein 4.8 L Albumin 2.1 L Albumin/Globulin Ratio 0.8 Blood Type Antibody Screen Crossmatch 03/31/19 11:52 WBC RBC Hgb Hct MCV MCH MCHC RDW Plt Count Lymph % (Auto) [place] % (Auto) Eos % (Auto) Baso % (Auto) Lymph # [place] # Eos # Baso # Seg Neutrophils % Seg Neutrophils # POC ABG pH POC ABG pCO2 POC ABG pO2 POC ABG HCO3 POC ABG Total CO2 POC ABG O2 Sat POC ABG Base Excess FiO2 Sodium Potassium Chloride Carbon Dioxide Anion Gap BUN Creatinine Estimated GFR BUN/Creatinine Ratio Glucose POC Glucose 90 Calcium Phosphorus Total Bilirubin Direct Bilirubin Indirect Bilirubin AST ALT Alkaline Phosphatase Total Protein Albumin Albumin/Globulin Ratio Blood Type Antibody Screen Crossmatch Medications & Allergies - Medications Allergies/Adverse Reactions: Allergies No Known Allergies Allergy (Unverified 03/16/19 17:17) Home Medications: Home Medications Medication Instructions Recorded Confirmed Last Taken Type Unobtainable 03/18/19 03/18/19 Unknown History Active Medications: Generic Name Dose Route Start Last Admin Trade Name Freq PRN Reason Stop Dose Admin Acetaminophen 650 mg 03/26/19 22:15 03/30/19 16:19 Tylenol PO 650 mg Q4H PRN Administration Pain, Mild (1-3), [id number]> Acetaminophen 650 mg 03/29/19 19:51 03/31/19 08:39 Tylenol [place] 650 mg Q4H PRN Administration Fever > 100.5 Albuterol 2.5 mg 03/29/19 13:08 Proventil IH Q4HRT PRN Shortness Of Breath Lipase/Protease/Amylase 1 each 03/17/19 14:[address] 10,500 Unit FEEDTUBE PRN PRN For Clogged Feeding Tube Calcium Acetate 1,334 mg 03/31/19 14:00 Phoslo PO TID PAOLO Calcium Chloride 1,000 mg 03/31/19 08:00 03/31/19 08:30 Calcium Chloride IVP 03/31/19 14:01 1,000 mg Q6H PAOLO Administration Dextrose 50 gm 03/19/19 18:39 03/26/19 23:26 D50w (25gm) Vial IV 50 gm PRN PRN Administration Hypoglycemia Epoetin Jet 20,000 unit 03/31/19 10:15 Procrit SUB-Q NEYMAR PRN hemodialysis Fentanyl 50 mcg 03/26/19 12:00 03/27/19 13:47 Sublimaze IV 50 mcg Q1H PRN Administration Pain, Moderate (4-6) Hydrophilic Ointment 1 applic 03/16/19 15:50 Vaseline Lip Therapy TP Q2HR PRN Dry Lips Phenylephrine HCl 100 mg/ 100 mls @ 3 mls/hr 03/17/19 02:30 03/19/19 18:48 Sodium Chloride IV Infused TITR PAOLO Titration Protocol 50 MCG/MIN Fentanyl Citrate 2,000 mcg in 100 mls @ 7.85 mls/hr 03/26/19 12:00 03/31/19 10:14 Fentanyl Drip Premix IV 3 mcg/kg/hr TITR PAOLO 23.55 mls/hr Administration Protocol 1 MCG/KG/HR Cefepime HCl 2 gm in 100 mls @ 200 mls/hr 03/27/19 14:00 03/31/19 13:29 Maxipime/Ns 2 Gm/100 Ml IV 200 mls/hr Q24H PAOLO Administration Protocol Norepinephrine 4 mg in 250 mls @ 7.5 mls/hr 03/27/19 22:16 03/31/19 11:38 Levophed Drip 4 Mg/Ns 250 Ml IV 6 mcg/min TITR PAOLO 22.5 mls/hr Titration Protocol 2 MCG/MIN Pantoprazole Sodium 80 mg/ 100 mls @ 10 mls/hr 03/28/19 09:30 03/31/19 13:40 Sodium Chloride IV 8 mg/hr DIRECT PAOLO 10 mls/hr Administration 8 MG/HR Vasopressin 20 unit/ Sodium 101 mls @ 9.09 mls/hr 03/28/19 09:00 03/28/19 15:38 Chloride IV 0 units/min TITR PAOLO 0 mls/hr Titration Protocol 0.03 UNITS/MIN Sodium Chloride 100 mls @ 999 mls/hr 03/29/19 15:30 Nacl 0.9% IV NEYMAR PRN Hypotension Amiodarone HCl 900 mg/ 500 mls @ 16.667 mls/hr 03/30/19 13:00 03/30/19 15:59 Dextrose IV 0.5 mg/min DIRECT PAOLO 16.667 mls/hr Administration Protocol 0.5 MG/MIN Sodium Chloride 1,000 mls @ 50 mls/hr 03/30/19 13:00 03/30/19 21:45 Nacl 0.9% 1000 Ml IV 50 mls/hr DIRECT PAOLO Administration Sodium Chloride 100 mls @ 999 mls/hr 03/31/19 10:15 Nacl 0.9% IV NEYMAR PRN Hypotension Lorazepam 2 mg 03/26/19 11:54 03/31/19 10:15 Ativan IV 2 mg Q1H PRN Administration Agitation Metoprolol Tartrate 25 mg 03/28/19 14:00 03/31/19 08:18 Lopressor PO Not Given TID PAOLO Multi-Ingred Cream/Lotion/Oil/Oint 1 applic 03/16/19 15:50 03/19/19 20:10 Artificial Tears Ophth Oint OU 1 applic Q4HR PRN Administration Dry Eye(s) Ondansetron HCl 4 mg 03/16/19 22:21 Zofran IV Q8H PRN Nausea And Vomiting Paricalcitol 2 mcg 03/30/19 10:00 03/31/19 10:15 Zemplar IV 2 mcg DAILY PAOLO Administration Simple Syrup 15 ml 03/17/19 14:45 03/26/19 23:19 Simple Syrup FEEDTUBE 15 ml PRN PRN Administration Hypoglycemia Simple Syrup 30 ml 03/17/19 14:45 Simple Syrup FEEDTUBE PRN PRN Hypoglycemia Sodium Bicarbonate 325 mg 03/17/19 14:45 Sodium Bicarbonate FEEDTUBE PRN PRN For Clogged Feeding Tube
[2019-03-31] MEDS ORDERED: SEVELAMER CARBONATE 800 MG TAB PO SCH (14:00)
--- NOTE | 2019-03-31 14:13 | Progress Note ---
Assessment and Plan Severe sepsis with shock. Right axilla abscess versus localized pannus/fatty collection. Acute hypoxemic respiratory failure, on mechanical ventilator support. Likely aspiration pneumonia, bilateral. Morbid obesity. Rhabdomyolysis. Acute kidney injury. Leukocytosis. Morbid obesity. Metabolic acidosis. Lactic acidosis. Hypomagnesemia. Elevated serum transaminases/possible shock liver. Acute encephalopathy, toxic metabolic versus anoxic - resume enteral nutrition and watch for new bleeding - increased Peep to 10 cm H2O - prn albuterol treatments - reduced set rate on MVS to 16/min - repeat ABG at 9 pm tonight - prn tylenol suppositories for fevers - keep on PRVC/AC for now - continue to wean FiO2 for sats > 90% - continue to wean Levophed for target MAP > 65 mmHg - continue amiodarone drip for A-fib - continue HD/UF per nephrology prescription - VAP bundle addressed - continue daily SAT's and SBT assessment as tolerated - target sedation for RASS 0 to -1 - prn analgesia per CPOT score - continue HD/UF per nephrology prescription and for toxin and volume control - prn supportive blood transfusions to keep serum Hb > 7.0 - Monitor hemodynamics closely - Transfuse PRBC's to keep HgB > 7g/dL - continue empiric broad spectrum antiinfective's per ID recommendations (de- escalate based on clinical and microbiologic data) - continue mobility protocols and off loading as tolerated for pressure ulcer prophylaxis - continue to avoid nephrotoxins, adjust all medications for GFR and CRCL - continue GI & VTE prophylaxis with - accuchecks with glycemic control per SSI for target BG of 140-180 mg/dl acutely - continue other care per attending / other consultants ... re-evaluate in am & prn CONDITION: CRITICAL PROGNOSIS: VERY GUARDED CODE STATUS: FULL CODE Discussed extensively with RT/RN and care team in ICU IDT rounds The high probability of a clinically significant, sudden or life threatening deterioration of the [respiratory, renal and Cardiac] system's' required my full and direct attention, intervention and personal management. The aggregate critical care time was 32 minutes. This time is in addition to time spent performing reported procedures but includes the following: [x] Data Review and interpretation [x] Patient assessment and monitoring of vital signs [x] Documentation [x] Medication orders and management Subjective Date of service: 03/31/19 Principal diagnosis: Septic Shock; Ac. hypoxemic resp failure; Renzo. PNA; R habdomyolysis; RUBEN Interval history: Patient is seen today for: Severe sepsis with shock; Acute hypoxemic respiratory failure; Aspiration pneumonia; Morbid obesity; Rhabdomyolysis; Acute kidney injury; Morbid obesity; Elevated serum transaminases/possible shock liver; Acute encephalopathy (Toxic/Met) Seen and examined at bedside; 24hour events reviewed; nursing and respiratory care staff consulted; no adverse overnight events reported to me; resting peacefully in bed; s/p EGD yesterday; no active bleeder; H&H stable post transfu daysi; No N/V/F/C; cleared to resume enteral nutrition; oxygenation labile with activity / agitation and FiO2 up to 70% this am Objective Vital Signs - 12hr 03/31/19 03/31/19 03/31/19 02:15 02:30 02:45 Temperature Pulse Rate 90 93 H 87 Pulse Rate [ From Monitor] Respiratory 19 19 20 Rate Blood Pressure 112/47 115/53 100/41 O2 Sat by Pulse 87 93 93 Oximetry 03/31/19 03/31/19 03/31/19 03:00 03:15 03:30 Temperature Pulse Rate 85 84 83 Pulse Rate [ From Monitor] Respiratory 19 19 20 Rate Blood Pressure 98/39 99/36 106/45 O2 Sat by Pulse 94 94 96 Oximetry 03/31/19 03/31/19 03/31/19 03:37 03:45 04:00 Temperature 99.9 F H Pulse Rate 84 83 Pulse Rate [ 83 From Monitor] Respiratory 18 19 Rate Blood Pressure 111/47 111/47 O2 Sat by Pulse 97 96 Oximetry 03/31/19 03/31/19 03/31/19 04:15 04:30 04:45 Temperature Pulse Rate 81 86 89 Pulse Rate [ From Monitor] Respiratory 20 16 20 Rate Blood Pressure 98/40 95/51 116/56 O2 Sat by Pulse 97 96 95 Oximetry 03/31/19 03/31/19 03/31/19 05:00 05:15 05:27 Temperature Pulse Rate 85 88 87 Pulse Rate [ From Monitor] Respiratory 19 18 Rate Blood Pressure 111/47 120/53 120/53 O2 Sat by Pulse 96 97 Oximetry 03/31/19 03/31/19 03/31/19 05:30 05:45 06:00 Temperature Pulse Rate 87 85 92 H Pulse Rate [ From Monitor] Respiratory 20 20 20 Rate Blood Pressure 114/51 111/46 123/59 O2 Sat by Pulse 96 96 96 Oximetry 03/31/19 03/31/19 03/31/19 06:15 06:30 06:45 Temperature Pulse Rate 89 92 H 94 H Pulse Rate [ From Monitor] Respiratory 20 24 19 Rate Blood Pressure 110/53 99/63 122/64 O2 Sat by Pulse 96 96 94 Oximetry 03/31/19 03/31/19 03/31/19 07:00 07:15 07:30 Temperature Pulse Rate 94 H 89 91 H Pulse Rate [ From Monitor] Respiratory 18 20 20 Rate Blood Pressure 122/65 120/57 129/63 O2 Sat by Pulse 96 91 97 Oximetry 03/31/19 03/31/19 03/31/19 07:45 08:00 08:15 Temperature 100.6 F H Pulse Rate 89 91 H 93 H Pulse Rate [ 86 From Monitor] Respiratory 21 20 20 Rate Blood Pressure 120/56 112/44 125/62 O2 Sat by Pulse 94 96 92 Oximetry 03/31/19 03/31/19 03/31/19 08:18 08:30 08:45 Temperature Pulse Rate 86 86 97 H Pulse Rate [ From Monitor] Respiratory 20 15 Rate Blood Pressure 125/62 118/52 119/78 O2 Sat by Pulse 96 95 Oximetry 03/31/19 03/31/19 03/31/19 09:00 09:15 09:30 Temperature Pulse Rate 84 94 H 96 H Pulse Rate [ From Monitor] Respiratory 9 L 16 14 Rate Blood Pressure 112/44 130/66 129/66 O2 Sat by Pulse 96 95 94 Oximetry 03/31/19 03/31/19 03/31/19 09:45 10:00 10:15 Temperature Pulse Rate 92 H 89 87 Pulse Rate [ From Monitor] Respiratory 22 15 19 Rate Blood Pressure 125/55 127/52 122/46 O2 Sat by Pulse 88 74 L 87 Oximetry 03/31/19 03/31/19 03/31/19 10:30 10:45 11:00 Temperature Pulse Rate 90 88 86 Pulse Rate [ From Monitor] Respiratory 20 20 21 Rate Blood Pressure 108/36 111/37 100/33 O2 Sat by Pulse 92 95 97 Oximetry 03/31/19 03/31/19 03/31/19 11:15 11:30 11:45 Temperature Pulse Rate 85 82 81 Pulse Rate [ From Monitor] Respiratory 20 20 17 Rate Blood Pressure 103/38 104/40 109/42 O2 Sat by Pulse 99 99 99 Oximetry 03/31/19 03/31/19 03/31/19 11:46 12:00 12:15 Temperature 100.7 F H Pulse Rate 85 82 Pulse Rate [ 83 From Monitor] Respiratory 19 20 Rate Blood Pressure 128/57 127/52 O2 Sat by Pulse 100 99 Oximetry 03/31/19 03/31/19 03/31/19 12:29 12:30 12:45 Temperature 100.7 F H Pulse Rate 80 79 Pulse Rate [ From Monitor] Respiratory 20 20 Rate Blood Pressure 128/51 123/49 O2 Sat by Pulse 98 98 Oximetry 03/31/19 13:00 Temperature Pulse Rate 79 Pulse Rate [ From Monitor] Respiratory 20 Rate Blood Pressure 123/50 O2 Sat by Pulse 98 Oximetry Constitutional: no acute distress, other (middle aged morbidly obese CM, normocephalic with incresed respiratory effort on MVS) Eyes: icteric ENT: oropharynx moist, other (ETT 23-24 cm PEDRO, ulcers over his upper lip) Neck: supple, no lymphadenopathy, no JVD, other (large neck circumference) Effort: mildly labored Ascultation: Bilateral: diminished breath sounds, rales Percussion: Bilateral: not dull Cardiovascular: regular rate and rhythm, other ( S1,S2) Gastrointestinal: hypoactive bowel sounds, soft, non-tender, non-distended, other (obese) Integumentary: normal, other (blisters with some weeping over the extremities) Extremities: no cyanosis, pink and warm, pulses normal, no ischemia or petechiae Neurologic: normal mental status, non-focal exam (grossly), pupils equal and round, CN II-XII normal, other (obeys simple commands when SAT was done) Psychiatric: mood appropriate, affect normal CBC and BMP: 03/31/19 04:44 03/31/19 04:44 ABG, PT/INR, D-dimer: ABG POC ABG pH 7.447 (7.35-7.45) 03/31/19 05:44 ABG pH 7.326 pH Units (7.350-7.450) L 03/26/19 04:30 POC ABG pCO2 53.5 (35-45) H 03/31/19 05:44 ABG pCO2 36.4 mm Hg 03/26/19 04:30 POC ABG pO2 62 (80-105) L 03/31/19 05:44 ABG pO2 137.4 mm Hg (80.0-90.0) H 03/26/19 04:30 POC ABG HCO3 36.9 (22-26 mml/L) 03/31/19 05:44 POC ABG Total CO2 38 (23-27mmol/L) 03/31/19 05:44 POC ABG O2 Sat 92 03/31/19 05:44 ABG O2 Saturation 98.6 % (95.0-99.0) 03/26/19 04:30 PT/INR, D-dimer PT 15.3 Sec. (12.2-14.9) H 03/29/19 11:48 INR 1.24 (0.87-1.13) H 03/29/19 11:48 D-Dimer 4845.98 ng/mlDDU (0-234) H 03/28/19 12:00 Abnormal lab findings: Abnormal Labs 03/16/19 03/16/19 03/16/19 15:32 16:03 16:05 WBC 27.0 H RBC 5.55 H Hgb 15.7 H Hct 47.1 H RDW Plt Count 75 L Lymph % (Auto) Seg Neutrophils % Seg Neuts % (Manual) 85.0 H Lymphocytes % (Manual) 2.0 L Monocytes % (Manual) Nucleated RBC % Seg Neutrophils # Seg Neutrophils # Man 23.0 H Lymphocytes # (Manual) 0.5 L Monocytes # (Manual) PT INR D-Dimer Heparin Anti-Xa Level POC ABG pH ABG pH POC ABG pCO2 POC ABG pO2 ABG pO2 ABG HCO3 ABG O2 Saturation ABG Base Excess ABG Hemoglobin Oxyhemoglobin Sodium 127 L Potassium Chloride 87.8 L Carbon Dioxide 17 L BUN 49 H Creatinine 5.8 H Glucose 150 H POC Glucose 118 H Lactic Acid Calcium 6.6 L Phosphorus Magnesium 1.10 L Total Bilirubin Direct Bilirubin AST ALT Alkaline Phosphatase Total Creatine Kinase 84715 H CK-MB (CK-2) Troponin T C-Reactive Protein Total Protein Albumin Triglycerides LDL Cholesterol Direct HDL Cholesterol Free T4 PTH Intact Urine WBC (Auto) Urine Creatinine Salicylates Acetaminophen Crossmatch 03/16/19 03/16/19 03/16/19 16:59 17:05 17:05 WBC RBC Hgb Hct RDW Plt Count Lymph % (Auto) Seg Neutrophils % Seg Neuts % (Manual) Lymphocytes % (Manual) Monocytes % (Manual) Nucleated RBC % Seg Neutrophils # Seg Neutrophils # Man Lymphocytes # (Manual) Monocytes # (Manual) PT INR D-Dimer Heparin Anti-Xa Level POC ABG pH 7.297 L ABG pH POC ABG pCO2 33.0 L POC ABG pO2 ABG pO2 ABG HCO3 ABG O2 Saturation ABG Base Excess ABG Hemoglobin Oxyhemoglobin Sodium Potassium Chloride Carbon Dioxide BUN Creatinine Glucose POC Glucose Lactic Acid Calcium Phosphorus Magnesium Total Bilirubin Direct Bilirubin AST ALT Alkaline Phosphatase Total Creatine Kinase 25182 H CK-MB (CK-2) 83.1 H Troponin T C-Reactive Protein Total Protein Albumin Triglycerides LDL Cholesterol Direct HDL Cholesterol Free T4 0.72 L PTH Intact Urine WBC (Auto) Urine Creatinine Salicylates Acetaminophen Crossmatch 03/16/19 03/16/19 03/16/19 17:05 17:05 17:05 WBC RBC Hgb Hct RDW Plt Count Lymph % (Auto) Seg Neutrophils % Seg Neuts % (Manual) Lymphocytes % (Manual) Monocytes % (Manual) Nucleated RBC % Seg Neutrophils # Seg Neutrophils # Man Lymphocytes # (Manual) Monocytes # (Manual) PT INR D-Dimer Heparin Anti-Xa Level POC ABG pH ABG pH POC ABG pCO2 POC ABG pO2 ABG pO2 ABG HCO3 ABG O2 Saturation ABG Base Excess ABG Hemoglobin Oxyhemoglobin Sodium Potassium Chloride Carbon Dioxide BUN Creatinine Glucose POC Glucose Lactic Acid 5.10 H* Calcium Phosphorus Magnesium Total Bilirubin Direct Bilirubin AST ALT Alkaline Phosphatase Total Creatine Kinase CK-MB (CK-2) Troponin T C-Reactive Protein Total Protein Albumin Triglycerides LDL Cholesterol Direct HDL Cholesterol Free T4 PTH Intact Urine WBC (Auto) Urine Creatinine Salicylates < 0.3 L Acetaminophen < 5.0 L Crossmatch 03/16/19 03/16/19 03/16/19 17:05 17:05 20:35 WBC RBC Hgb Hct RDW Plt Count Lymph % (Auto) Seg Neutrophils % Seg Neuts % (Manual) Lymphocytes % (Manual) Monocytes % (Manual) Nucleated RBC % Seg Neutrophils # Seg Neutrophils # Man Lymphocytes # (Manual) Monocytes # (Manual) PT 15.9 H INR 1.30 H D-Dimer Heparin Anti-Xa Level POC ABG pH ABG pH POC ABG pCO2 POC ABG pO2 ABG pO2 ABG HCO3 ABG O2 Saturation ABG Base Excess ABG Hemoglobin Oxyhemoglobin Sodium Potassium Chloride Carbon Dioxide BUN Creatinine Glucose POC Glucose Lactic Acid 3.30 H* Calcium Phosphorus Magnesium Total Bilirubin 6.20 H Direct Bilirubin 5.9 H AST 800 H ALT 120 H Alkaline Phosphatase Total Creatine Kinase CK-MB (CK-2) Troponin T C-Reactive Protein Total Protein 4.4 L Albumin 2.4 L Triglycerides LDL Cholesterol Direct HDL Cholesterol Free T4 PTH Intact Urine WBC (Auto) Urine Creatinine Salicylates Acetaminophen Crossmatch 03/16/19 03/16/19 03/16/19 21:45 22:32 Unknown WBC RBC Hgb Hct RDW Plt Count Lymph % (Auto) Seg Neutrophils % Seg Neuts % (Manual) Lymphocytes % (Manual) Monocytes % (Manual) Nucleated RBC % Seg Neutrophils # Seg Neutrophils # Man Lymphocytes # (Manual) Monocytes # (Manual) PT INR D-Dimer Heparin Anti-Xa Level POC ABG pH ABG pH POC ABG pCO2 POC ABG pO2 ABG pO2 ABG HCO3 ABG O2 Saturation ABG Base Excess ABG Hemoglobin Oxyhemoglobin Sodium Potassium Chloride Carbon Dioxide BUN Creatinine Glucose POC Glucose Lactic Acid 3.30 H* 3.00 H* Calcium Phosphorus Magnesium Total Bilirubin Direct Bilirubin AST ALT Alkaline Phosphatase Total Creatine Kinase CK-MB (CK-2) Troponin T 0.047 H D C-Reactive Protein Total Protein Albumin Triglycerides 395 H LDL Cholesterol Direct 10 L HDL Cholesterol 7 L Free T4 PTH Intact Urine WBC (Auto) Urine Creatinine Salicylates Acetaminophen Crossmatch 03/17/19 03/17/19 03/17/19 03:45 03:45 03:45 WBC RBC Hgb Hct RDW Plt Count Lymph % (Auto) Seg Neutrophils % Seg Neuts % (Manual) Lymphocytes % (Manual) Monocytes % (Manual) Nucleated RBC % Seg Neutrophils # Seg Neutrophils # Man Lymphocytes # (Manual) Monocytes # (Manual) PT INR D-Dimer Heparin Anti-Xa Level POC ABG pH ABG pH POC ABG pCO2 POC ABG pO2 ABG pO2 ABG HCO3 ABG O2 Saturation ABG Base Excess ABG Hemoglobin Oxyhemoglobin Sodium 131 L Potassium Chloride 88.9 L Carbon Dioxide BUN 53 H Creatinine 7.1 H Glucose POC Glucose Lactic Acid 4.10 H* Calcium 5.4 L* D Phosphorus 7.30 H Magnesium 1.60 L Total Bilirubin 5.90 H Direct Bilirubin AST 801 H ALT 109 H Alkaline Phosphatase Total Creatine Kinase 69574 H 38347 H CK-MB (CK-2) 41.5 H Troponin T 0.054 H C-Reactive Protein Total Protein 4.5 L Albumin 2.0 L Triglycerides LDL Cholesterol Direct HDL Cholesterol Free T4 PTH Intact Urine WBC (Auto) Urine Creatinine Salicylates Acetaminophen Crossmatch 03/17/19 03/17/19 03/17/19 05:47 07:16 07:16 WBC RBC Hgb Hct RDW Plt Count Lymph % (Auto) Seg Neutrophils % Seg Neuts % (Manual) Lymphocytes % (Manual) Monocytes % (Manual) Nucleated RBC % Seg Neutrophils # Seg Neutrophils # Man Lymphocytes # (Manual) Monocytes # (Manual) PT INR D-Dimer Heparin Anti-Xa Level POC ABG pH 7.193 L ABG pH POC ABG pCO2 45.2 H POC ABG pO2 65 L ABG pO2 ABG HCO3 ABG O2 Saturation ABG Base Excess ABG Hemoglobin Oxyhemoglobin Sodium Potassium Chloride Carbon Dioxide BUN Creatinine Glucose POC Glucose Lactic Acid 5.50 H* Calcium Phosphorus Magnesium Total Bilirubin Direct Bilirubin AST ALT Alkaline Phosphatase Total Creatine Kinase 22742 H CK-MB (CK-2) 54.3 H Troponin T 0.058 H C-Reactive Protein Total Protein Albumin Triglycerides LDL Cholesterol Direct HDL Cholesterol Free T4 PTH Intact Urine WBC (Auto) Urine Creatinine Salicylates Acetaminophen Crossmatch 03/17/19 03/17/19 03/17/19 11:52 12:51 13:01 WBC RBC Hgb Hct RDW Plt Count Lymph % (Auto) Seg Neutrophils % Seg Neuts % (Manual) Lymphocytes % (Manual) Monocytes % (Manual) Nucleated RBC % Seg Neutrophils # Seg Neutrophils # Man Lymphocytes # (Manual) Monocytes # (Manual) PT INR D-Dimer Heparin Anti-Xa Level POC ABG pH 7.154 L ABG pH POC ABG pCO2 34.3 L POC ABG pO2 73 L ABG pO2 ABG HCO3 ABG O2 Saturation ABG Base Excess ABG Hemoglobin Oxyhemoglobin Sodium Potassium Chloride Carbon Dioxide BUN Creatinine Glucose POC Glucose 60 L Lactic Acid 8.20 H* Calcium Phosphorus Magnesium Total Bilirubin Direct Bilirubin AST ALT Alkaline Phosphatase Total Creatine Kinase CK-MB (CK-2) Troponin T C-Reactive Protein Total Protein Albumin Triglycerides LDL Cholesterol Direct HDL Cholesterol Free T4 PTH Intact Urine WBC (Auto) Urine Creatinine Salicylates Acetaminophen Crossmatch 03/17/19 03/17/19 03/17/19 14:37 14:37 14:37 WBC 29.3 H RBC Hgb Hct RDW 15.8 H Plt Count 45 L Lymph % (Auto) Seg Neutrophils % Seg Neuts % (Manual) 81.0 H Lymphocytes % (Manual) 1.0 L Monocytes % (Manual) 15.0 H Nucleated RBC % Seg Neutrophils # Seg Neutrophils # Man 23.7 H Lymphocytes # (Manual) 0.3 L Monocytes # (Manual) 4.4 H PT INR D-Dimer Heparin Anti-Xa Level POC ABG pH ABG pH POC ABG pCO2 POC ABG pO2 ABG pO2 ABG HCO3 ABG O2 Saturation ABG Base Excess ABG Hemoglobin Oxyhemoglobin Sodium Potassium Chloride Carbon Dioxide BUN Creatinine Glucose POC Glucose Lactic Acid 4.90 H* Calcium Phosphorus Magnesium Total Bilirubin Direct Bilirubin AST ALT Alkaline Phosphatase Total Creatine Kinase CK-MB (CK-2) Troponin T C-Reactive Protein 24.90 H Total Protein Albumin Triglycerides LDL Cholesterol Direct HDL Cholesterol Free T4 PTH Intact Urine WBC (Auto) Urine Creatinine Salicylates Acetaminophen Crossmatch 03/17/19 03/17/19 03/17/19 16:05 16:05 17:02 WBC RBC Hgb Hct RDW Plt Count Lymph % (Auto) Seg Neutrophils % Seg Neuts % (Manual) Lymphocytes % (Manual) Monocytes % (Manual) Nucleated RBC % Seg Neutrophils # Seg Neutrophils # Man Lymphocytes # (Manual) Monocytes # (Manual) PT INR D-Dimer Heparin Anti-Xa Level POC ABG pH 7.183 L ABG pH POC ABG pCO2 POC ABG pO2 65 L ABG pO2 ABG HCO3 ABG O2 Saturation ABG Base Excess ABG Hemoglobin Oxyhemoglobin Sodium Potassium Chloride Carbon Dioxide BUN Creatinine Glucose POC Glucose Lactic Acid Calcium Phosphorus Magnesium Total Bilirubin Direct Bilirubin AST ALT Alkaline Phosphatase Total Creatine Kinase CK-MB (CK-2) Troponin T C-Reactive Protein Total Protein Albumin Triglycerides LDL Cholesterol Direct HDL Cholesterol Free T4 PTH Intact Urine WBC (Auto) 30.0 H Urine Creatinine 106.6 H Salicylates Acetaminophen Crossmatch 03/18/19 03/18/19 03/18/19 05:12 05:16 05:53 WBC RBC Hgb Hct RDW Plt Count Lymph % (Auto) Seg Neutrophils % Seg Neuts % (Manual) Lymphocytes % (Manual) Monocytes % (Manual) Nucleated RBC % Seg Neutrophils # Seg Neutrophils # Man Lymphocytes # (Manual) Monocytes # (Manual) PT INR D-Dimer Heparin Anti-Xa Level POC ABG pH 7.257 L ABG pH POC ABG pCO2 31.6 L POC ABG pO2 69 L ABG pO2 ABG HCO3 ABG O2 Saturation ABG Base Excess ABG Hemoglobin Oxyhemoglobin Sodium Potassium Chloride Carbon Dioxide BUN Creatinine Glucose POC Glucose 141 H Lactic Acid 5.00 H* Calcium Phosphorus Magnesium Total Bilirubin Direct Bilirubin AST ALT Alkaline Phosphatase Total Creatine Kinase CK-MB (CK-2) Troponin T C-Reactive Protein Total Protein Albumin Triglycerides LDL Cholesterol Direct HDL Cholesterol Free T4 PTH Intact Urine WBC (Auto) Urine Creatinine Salicylates Acetaminophen Crossmatch 03/18/19 03/18/19 03/18/19 06:57 08:40 08:40 WBC 31.7 H RBC Hgb Hct RDW 15.5 H Plt Count 35 L Lymph % (Auto) Seg Neutrophils % Seg Neuts % (Manual) Lymphocytes % (Manual) Monocytes % (Manual) Nucleated RBC % Seg Neutrophils # Seg Neutrophils # Man Lymphocytes # (Manual) Monocytes # (Manual) PT INR D-Dimer Heparin Anti-Xa Level POC ABG pH ABG pH POC ABG pCO2 POC ABG pO2 ABG pO2 ABG HCO3 ABG O2 Saturation ABG Base Excess ABG Hemoglobin Oxyhemoglobin Sodium 132 L Potassium 5.5 H D Chloride 88.5 L Carbon Dioxide 18 L BUN 71 H Creatinine 8.1 H Glucose 205 H POC Glucose Lactic Acid 5.00 H* Calcium 4.1 L* D Phosphorus Magnesium 2.40 H Total Bilirubin 7.50 H Direct Bilirubin AST 1088 H ALT 159 H Alkaline Phosphatase 190 H Total Creatine Kinase 776556 H CK-MB (CK-2) Troponin T C-Reactive Protein Total Protein 4.7 L Albumin 1.8 L Triglycerides LDL Cholesterol Direct HDL Cholesterol Free T4 PTH Intact Urine WBC (Auto) Urine Creatinine Salicylates Acetaminophen Crossmatch 03/18/19 03/18/19 03/18/19 12:33 12:50 13:19 WBC RBC Hgb Hct RDW Plt Count Lymph % (Auto) Seg Neutrophils % Seg Neuts % (Manual) Lymphocytes % (Manual) Monocytes % (Manual) Nucleated RBC % Seg Neutrophils # Seg Neutrophils # Man Lymphocytes # (Manual) Monocytes # (Manual) PT INR D-Dimer Heparin Anti-Xa Level POC ABG pH 7.282 L ABG pH POC ABG pCO2 POC ABG pO2 67 L ABG pO2 ABG HCO3 ABG O2 Saturation ABG Base Excess ABG Hemoglobin Oxyhemoglobin Sodium Potassium Chloride Carbon Dioxide BUN Creatinine Glucose POC Glucose 129 H Lactic Acid 3.30 H* Calcium Phosphorus Magnesium Total Bilirubin Direct Bilirubin AST ALT Alkaline Phosphatase Total Creatine Kinase CK-MB (CK-2) Troponin T C-Reactive Protein Total Protein Albumin Triglycerides LDL Cholesterol Direct HDL Cholesterol Free T4 PTH Intact Urine WBC (Auto) Urine Creatinine Salicylates Acetaminophen Crossmatch 03/18/19 03/18/19 03/18/19 13:19 16:50 18:11 WBC RBC Hgb Hct RDW Plt Count Lymph % (Auto) Seg Neutrophils % Seg Neuts % (Manual) Lymphocytes % (Manual) Monocytes % (Manual) Nucleated RBC % Seg Neutrophils # Seg Neutrophils # Man Lymphocytes # (Manual) Monocytes # (Manual) PT INR D-Dimer Heparin Anti-Xa Level POC ABG pH ABG pH POC ABG pCO2 POC ABG pO2 59 L ABG pO2 ABG HCO3 ABG O2 Saturation ABG Base Excess ABG Hemoglobin Oxyhemoglobin Sodium Potassium Chloride Carbon Dioxide BUN Creatinine Glucose POC Glucose 151 H Lactic Acid Calcium 4.2 L* Phosphorus Magnesium Total Bilirubin Direct Bilirubin AST ALT Alkaline Phosphatase Total Creatine Kinase 176741 H CK-MB (CK-2) Troponin T C-Reactive Protein Total Protein Albumin Triglycerides LDL Cholesterol Direct HDL Cholesterol Free T4 PTH Intact Urine WBC (Auto) Urine Creatinine Salicylates Acetaminophen Crossmatch 03/18/19 03/18/19 03/19/19 18:20 23:39 01:42 WBC RBC Hgb Hct RDW Plt Count Lymph % (Auto) Seg Neutrophils % Seg Neuts % (Manual) Lymphocytes % (Manual) Monocytes % (Manual) Nucleated RBC % Seg Neutrophils # Seg Neutrophils # Man Lymphocytes # (Manual) Monocytes # (Manual) PT INR D-Dimer Heparin Anti-Xa Level POC ABG pH 7.345 L ABG pH 7.285 L POC ABG pCO2 POC ABG pO2 59 L ABG pO2 44.0 L ABG HCO3 ABG O2 Saturation 70.9 L ABG Base Excess -5.7 L ABG Hemoglobin 11.9 L Oxyhemoglobin 69.6 L Sodium Potassium Chloride Carbon Dioxide BUN Creatinine Glucose POC Glucose 152 H Lactic Acid Calcium Phosphorus Magnesium Total Bilirubin Direct Bilirubin AST ALT Alkaline Phosphatase Total Creatine Kinase CK-MB (CK-2) Troponin T C-Reactive Protein Total Protein Albumin Triglycerides LDL Cholesterol Direct HDL Cholesterol Free T4 PTH Intact Urine WBC (Auto) Urine Creatinine Salicylates Acetaminophen Crossmatch 03/19/19 03/19/19 03/19/19 04:00 04:00 05:35 WBC 36.5 H RBC Hgb Hct RDW 15.8 H Plt Count 35 L Lymph % (Auto) Seg Neutrophils % Seg Neuts % (Manual) Lymphocytes % (Manual) Monocytes % (Manual) Nucleated RBC % Seg Neutrophils # Seg Neutrophils # Man Lymphocytes # (Manual) Monocytes # (Manual) PT INR D-Dimer Heparin Anti-Xa Level POC ABG pH ABG pH 7.265 L POC ABG pCO2 POC ABG pO2 ABG pO2 35.4 L* ABG HCO3 ABG O2 Saturation 54.4 L ABG Base Excess -6.7 L ABG Hemoglobin 12.9 L Oxyhemoglobin 53.4 L Sodium 132 L Potassium 5.7 H Chloride 89.8 L Carbon Dioxide 19 L BUN 62 H Creatinine 6.4 H Glucose 151 H POC Glucose Lactic Acid Calcium 5.2 L* D Phosphorus Magnesium Total Bilirubin 7.80 H Direct Bilirubin AST 682 H ALT 130 H Alkaline Phosphatase 167 H Total Creatine Kinase CK-MB (CK-2) Troponin T C-Reactive Protein Total Protein 4.8 L Albumin 2.3 L Triglycerides LDL Cholesterol Direct HDL Cholesterol Free T4 PTH Intact Urine WBC (Auto) Urine Creatinine Salicylates Acetaminophen Crossmatch 03/19/19 03/19/19 03/19/19 05:49 09:16 09:50 WBC RBC Hgb Hct RDW Plt Count Lymph % (Auto) Seg Neutrophils % Seg Neuts % (Manual) Lymphocytes % (Manual) Monocytes % (Manual) Nucleated RBC % Seg Neutrophils # Seg Neutrophils # Man Lymphocytes # (Manual) Monocytes # (Manual) PT INR D-Dimer Heparin Anti-Xa Level POC ABG pH 7.222 L ABG pH POC ABG pCO2 56.6 H POC ABG pO2 ABG pO2 ABG HCO3 ABG O2 Saturation ABG Base Excess ABG Hemoglobin Oxyhemoglobin Sodium Potassium Chloride Carbon Dioxide BUN Creatinine Glucose POC Glucose 154 H Lactic Acid 2.70 H* Calcium Phosphorus Magnesium Total Bilirubin Direct Bilirubin AST ALT Alkaline Phosphatase Total Creatine Kinase CK-MB (CK-2) Troponin T C-Reactive Protein Total Protein Albumin Triglycerides LDL Cholesterol Direct HDL Cholesterol Free T4 PTH Intact Urine WBC (Auto) Urine Creatinine Salicylates Acetaminophen Crossmatch 03/19/19 03/19/19 03/19/19 09:50 11:28 17:58 WBC RBC Hgb Hct RDW Plt Count Lymph % (Auto) Seg Neutrophils % Seg Neuts % (Manual) Lymphocytes % (Manual) Monocytes % (Manual) Nucleated RBC % Seg Neutrophils # Seg Neutrophils # Man Lymphocytes # (Manual) Monocytes # (Manual) PT INR D-Dimer Heparin Anti-Xa Level POC ABG pH 7.250 L ABG pH POC ABG pCO2 52.6 H POC ABG pO2 ABG pO2 ABG HCO3 ABG O2 Saturation ABG Base Excess ABG Hemoglobin Oxyhemoglobin Sodium Potassium Chloride Carbon Dioxide BUN Creatinine Glucose POC Glucose 160 H Lactic Acid Calcium Phosphorus Magnesium Total Bilirubin Direct Bilirubin AST ALT Alkaline Phosphatase Total Creatine Kinase 93795 H CK-MB (CK-2) Troponin T C-Reactive Protein Total Protein Albumin Triglycerides LDL Cholesterol Direct HDL Cholesterol Free T4 PTH Intact Urine WBC (Auto) Urine Creatinine Salicylates Acetaminophen Crossmatch 03/19/19 03/19/19 03/20/19 19:48 21:03 02:16 WBC RBC Hgb Hct RDW Plt Count Lymph % (Auto) Seg Neutrophils % Seg Neuts % (Manual) Lymphocytes % (Manual) Monocytes % (Manual) Nucleated RBC % Seg Neutrophils # Seg Neutrophils # Man Lymphocytes # (Manual) Monocytes # (Manual) PT INR D-Dimer Heparin Anti-Xa Level POC ABG pH 7.279 L ABG pH POC ABG pCO2 50.3 H POC ABG pO2 129 H ABG pO2 ABG HCO3 ABG O2 Saturation ABG Base Excess ABG Hemoglobin Oxyhemoglobin Sodium Potassium Chloride Carbon Dioxide BUN Creatinine Glucose POC Glucose 119 H 119 H Lactic Acid Calcium Phosphorus Magnesium Total Bilirubin Direct Bilirubin AST ALT Alkaline Phosphatase Total Creatine Kinase CK-MB (CK-2) Troponin T C-Reactive Protein Total Protein Albumin Triglycerides LDL Cholesterol Direct HDL Cholesterol Free T4 PTH Intact Urine WBC (Auto) Urine Creatinine Salicylates Acetaminophen Crossmatch 03/20/19 03/20/19 03/20/19 04:23 05:05 09:30 WBC 36.3 H RBC Hgb Hct RDW 15.5 H Plt Count 29 L Lymph % (Auto) Seg Neutrophils % Seg Neuts % (Manual) Lymphocytes % (Manual) Monocytes % (Manual) Nucleated RBC % Seg Neutrophils # Seg Neutrophils # Man Lymphocytes # (Manual) Monocytes # (Manual) PT INR D-Dimer Heparin Anti-Xa Level POC ABG pH ABG pH POC ABG pCO2 POC ABG pO2 280 H ABG pO2 ABG HCO3 ABG O2 Saturation ABG Base Excess ABG Hemoglobin Oxyhemoglobin Sodium Potassium Chloride Carbon Dioxide BUN Creatinine Glucose POC Glucose 115 H Lactic Acid Calcium Phosphorus Magnesium Total Bilirubin Direct Bilirubin AST ALT Alkaline Phosphatase Total Creatine Kinase CK-MB (CK-2) Troponin T C-Reactive Protein Total Protein Albumin Triglycerides LDL Cholesterol Direct HDL Cholesterol Free T4 PTH Intact Urine WBC (Auto) Urine Creatinine Salicylates Acetaminophen Crossmatch 03/20/19 03/20/19 03/20/19 09:30 09:30 11:34 WBC RBC Hgb Hct RDW Plt Count Lymph % (Auto) Seg Neutrophils % Seg Neuts % (Manual) Lymphocytes % (Manual) Monocytes % (Manual) Nucleated RBC % Seg Neutrophils # Seg Neutrophils # Man Lymphocytes # (Manual) Monocytes # (Manual) PT INR D-Dimer Heparin Anti-Xa Level POC ABG pH ABG pH POC ABG pCO2 POC ABG pO2 ABG pO2 ABG HCO3 ABG O2 Saturation ABG Base Excess ABG Hemoglobin Oxyhemoglobin Sodium 131 L Potassium Chloride 92.3 L Carbon Dioxide 20 L BUN 68 H Creatinine 6.1 H Glucose 164 H POC Glucose 141 H Lactic Acid Calcium 5.3 L* Phosphorus Magnesium Total Bilirubin 9.50 H Direct Bilirubin AST 381 H ALT 116 H Alkaline Phosphatase 255 H Total Creatine Kinase 64877 H CK-MB (CK-2) Troponin T C-Reactive Protein Total Protein 5.1 L Albumin 2.3 L Triglycerides LDL Cholesterol Direct HDL Cholesterol Free T4 PTH Intact Urine WBC (Auto) Urine Creatinine Salicylates Acetaminophen Crossmatch 03/20/19 03/20/19 03/20/19 14:41 14:45 18:50 WBC RBC Hgb Hct RDW Plt Count Lymph % (Auto) Seg Neutrophils % Seg Neuts % (Manual) Lymphocytes % (Manual) Monocytes % (Manual) Nucleated RBC % Seg Neutrophils # Seg Neutrophils # Man Lymphocytes # (Manual) Monocytes # (Manual) PT INR D-Dimer Heparin Anti-Xa Level POC ABG pH ABG pH POC ABG pCO2 POC ABG pO2 ABG pO2 ABG HCO3 ABG O2 Saturation ABG Base Excess ABG Hemoglobin Oxyhemoglobin Sodium Potassium Chloride Carbon Dioxide BUN Creatinine Glucose POC Glucose 117 H Lactic Acid 2.90 H* Calcium Phosphorus Magnesium Total Bilirubin Direct Bilirubin AST ALT Alkaline Phosphatase Total Creatine Kinase CK-MB (CK-2) Troponin T C-Reactive Protein 13.30 H Total Protein Albumin Triglycerides LDL Cholesterol Direct HDL Cholesterol Free T4 PTH Intact Urine WBC (Auto) Urine Creatinine Salicylates Acetaminophen Crossmatch 03/20/19 03/21/19 03/21/19 21:55 04:26 04:26 WBC 37.8 H RBC Hgb Hct RDW 15.4 H Plt Count 36 L Lymph % (Auto) Seg Neutrophils % Seg Neuts % (Manual) 93.0 H Lymphocytes % (Manual) 3.0 L Monocytes % (Manual) Nucleated RBC % 1.0 H Seg Neutrophils # 34.6 H Seg Neutrophils # Man 35.2 H Lymphocytes # (Manual) 1.1 L Monocytes # (Manual) PT INR D-Dimer Heparin Anti-Xa Level POC ABG pH ABG pH POC ABG pCO2 POC ABG pO2 ABG pO2 ABG HCO3 ABG O2 Saturation ABG Base Excess ABG Hemoglobin Oxyhemoglobin Sodium 131 L Potassium Chloride 90.7 L Carbon Dioxide 21 L BUN 69 H Creatinine 5.7 H Glucose 170 H POC Glucose 128 H Lactic Acid Calcium 6.1 L D Phosphorus Magnesium Total Bilirubin 9.50 H Direct Bilirubin AST 308 H ALT 124 H Alkaline Phosphatase 327 H Total Creatine Kinase 46734 H CK-MB (CK-2) Troponin T C-Reactive Protein Total Protein 5.7 L Albumin 2.6 L Triglycerides LDL Cholesterol Direct HDL Cholesterol Free T4 PTH Intact Urine WBC (Auto) Urine Creatinine Salicylates Acetaminophen Crossmatch 03/21/19 03/21/19 03/21/19 05:17 05:39 08:29 WBC RBC Hgb Hct RDW Plt Count Lymph % (Auto) Seg Neutrophils % Seg Neuts % (Manual) Lymphocytes % (Manual) Monocytes % (Manual) Nucleated RBC % Seg Neutrophils # Seg Neutrophils # Man Lymphocytes # (Manual) Monocytes # (Manual) PT INR D-Dimer Heparin Anti-Xa Level POC ABG pH ABG pH POC ABG pCO2 POC ABG pO2 209 H ABG pO2 ABG HCO3 ABG O2 Saturation ABG Base Excess ABG Hemoglobin Oxyhemoglobin Sodium Potassium Chloride Carbon Dioxide BUN Creatinine Glucose POC Glucose 145 H Lactic Acid Calcium Phosphorus Magnesium Total Bilirubin Direct Bilirubin AST ALT Alkaline Phosphatase Total Creatine Kinase 63318 H CK-MB (CK-2) Troponin T C-Reactive Protein Total Protein Albumin Triglycerides LDL Cholesterol Direct HDL Cholesterol Free T4 PTH Intact Urine WBC (Auto) Urine Creatinine Salicylates Acetaminophen Crossmatch 03/21/19 03/21/19 03/21/19 08:29 11:43 12:00 WBC RBC Hgb Hct RDW Plt Count Lymph % (Auto) Seg Neutrophils % Seg Neuts % (Manual) Lymphocytes % (Manual) Monocytes % (Manual) Nucleated RBC % Seg Neutrophils # Seg Neutrophils # Man Lymphocytes # (Manual) Monocytes # (Manual) PT INR D-Dimer Heparin Anti-Xa Level POC ABG pH ABG pH POC ABG pCO2 POC ABG pO2 ABG pO2 ABG HCO3 ABG O2 Saturation ABG Base Excess ABG Hemoglobin Oxyhemoglobin Sodium Potassium Chloride Carbon Dioxide BUN Creatinine Glucose POC Glucose 123 H Lactic Acid 2.60 H* 2.20 H* Calcium Phosphorus Magnesium Total Bilirubin Direct Bilirubin AST ALT Alkaline Phosphatase Total Creatine Kinase CK-MB (CK-2) Troponin T C-Reactive Protein Total Protein Albumin Triglycerides LDL Cholesterol Direct HDL Cholesterol Free T4 PTH Intact Urine WBC (Auto) Urine Creatinine Salicylates Acetaminophen Crossmatch 03/21/19 03/21/19 03/21/19 14:11 18:28 19:32 WBC RBC Hgb Hct RDW Plt Count Lymph % (Auto) Seg Neutrophils % Seg Neuts % (Manual) Lymphocytes % (Manual) Monocytes % (Manual) Nucleated RBC % Seg Neutrophils # Seg Neutrophils # Man Lymphocytes # (Manual) Monocytes # (Manual) PT INR D-Dimer Heparin Anti-Xa Level POC ABG pH 7.293 L ABG pH POC ABG pCO2 POC ABG pO2 ABG pO2 ABG HCO3 ABG O2 Saturation ABG Base Excess ABG Hemoglobin Oxyhemoglobin Sodium Potassium Chloride Carbon Dioxide BUN Creatinine Glucose POC Glucose 153 H Lactic Acid 2.10 H* Calcium Phosphorus Magnesium Total Bilirubin Direct Bilirubin AST ALT Alkaline Phosphatase Total Creatine Kinase CK-MB (CK-2) Troponin T C-Reactive Protein Total Protein Albumin Triglycerides LDL Cholesterol Direct HDL Cholesterol Free T4 PTH Intact Urine WBC (Auto) Urine Creatinine Salicylates Acetaminophen Crossmatch 03/21/19 03/22/19 03/22/19 23:38 05:08 05:51 WBC RBC Hgb Hct RDW Plt Count Lymph % (Auto) Seg Neutrophils % Seg Neuts % (Manual) Lymphocytes % (Manual) Monocytes % (Manual) Nucleated RBC % Seg Neutrophils # Seg Neutrophils # Man Lymphocytes # (Manual) Monocytes # (Manual) PT INR D-Dimer Heparin Anti-Xa Level POC ABG pH 7.283 L ABG pH POC ABG pCO2 POC ABG pO2 53 L ABG pO2 ABG HCO3 ABG O2 Saturation ABG Base Excess ABG Hemoglobin Oxyhemoglobin Sodium Potassium Chloride Carbon Dioxide BUN Creatinine Glucose POC Glucose 149 H 131 H Lactic Acid Calcium Phosphorus Magnesium Total Bilirubin Direct Bilirubin AST ALT Alkaline Phosphatase Total Creatine Kinase CK-MB (CK-2) Troponin T C-Reactive Protein Total Protein Albumin Triglycerides LDL Cholesterol Direct HDL Cholesterol Free T4 PTH Intact Urine WBC (Auto) Urine Creatinine Salicylates Acetaminophen Crossmatch 03/22/19 03/22/19 03/22/19 08:00 08:00 18:19 WBC 36.7 H RBC Hgb 11.0 L Hct 33.5 L RDW 15.5 H Plt Count 43 L Lymph % (Auto) Seg Neutrophils % Seg Neuts % (Manual) 87.0 H Lymphocytes % (Manual) 7.0 L Monocytes % (Manual) Nucleated RBC % Seg Neutrophils # Seg Neutrophils # Man 31.9 H Lymphocytes # (Manual) Monocytes # (Manual) PT INR D-Dimer Heparin Anti-Xa Level POC ABG pH ABG pH POC ABG pCO2 46.4 H POC ABG pO2 108 H ABG pO2 ABG HCO3 ABG O2 Saturation ABG Base Excess ABG Hemoglobin Oxyhemoglobin Sodium 132 L Potassium 5.6 H Chloride 89.6 L Carbon Dioxide 20 L BUN 101 H Creatinine 7.4 H Glucose 124 H POC Glucose Lactic Acid Calcium 5.2 L* Phosphorus Magnesium Total Bilirubin 2.80 H Direct Bilirubin AST 119 H ALT 86 H Alkaline Phosphatase 245 H Total Creatine Kinase CK-MB (CK-2) Troponin T C-Reactive Protein Total Protein 5.6 L Albumin 2.5 L Triglycerides LDL Cholesterol Direct HDL Cholesterol Free T4 PTH Intact Urine WBC (Auto) Urine Creatinine Salicylates Acetaminophen Crossmatch 03/22/19 03/23/19 03/23/19 20:37 04:49 05:28 WBC 35.9 H RBC Hgb 10.8 L Hct 33.2 L RDW 15.5 H Plt Count 49 L Lymph % (Auto) Seg Neutrophils % Seg Neuts % (Manual) 81.0 H Lymphocytes % (Manual) 3.5 L Monocytes % (Manual) Nucleated RBC % Seg Neutrophils # Seg Neutrophils # Man 29.1 H Lymphocytes # (Manual) Monocytes # (Manual) 1.4 H PT INR D-Dimer Heparin Anti-Xa Level POC ABG pH 7.296 L ABG pH POC ABG pCO2 46.2 H POC ABG pO2 ABG pO2 ABG HCO3 ABG O2 Saturation ABG Base Excess ABG Hemoglobin Oxyhemoglobin Sodium 129 L Potassium 5.2 H Chloride 91.1 L Carbon Dioxide BUN 91 H Creatinine 6.6 H Glucose 190 H POC Glucose Lactic Acid Calcium 5.3 L* Phosphorus Magnesium Total Bilirubin 1.80 H Direct Bilirubin AST 80 H ALT 62 H Alkaline Phosphatase 209 H Total Creatine Kinase 9758 H CK-MB (CK-2) Troponin T C-Reactive Protein Total Protein 5.2 L Albumin 2.2 L Triglycerides LDL Cholesterol Direct HDL Cholesterol Free T4 PTH Intact Urine WBC (Auto) Urine Creatinine Salicylates Acetaminophen Crossmatch 03/23/19 03/23/19 03/23/19 05:28 05:31 11:33 WBC 29.7 H RBC 3.59 L Hgb 10.1 L Hct 31.1 L RDW 15.4 H Plt Count 47 L Lymph % (Auto) Seg Neutrophils % Seg Neuts % (Manual) 89.0 H Lymphocytes % (Manual) 6.0 L Monocytes % (Manual) Nucleated RBC % 1.0 H Seg Neutrophils # Seg Neutrophils # Man 26.4 H Lymphocytes # (Manual) Monocytes # (Manual) PT INR D-Dimer Heparin Anti-Xa Level POC ABG pH ABG pH POC ABG pCO2 POC ABG pO2 ABG pO2 ABG HCO3 ABG O2 Saturation ABG Base Excess ABG Hemoglobin Oxyhemoglobin Sodium Potassium Chloride Carbon Dioxide BUN Creatinine Glucose POC Glucose 122 H 113 H Lactic Acid Calcium Phosphorus Magnesium Total Bilirubin Direct Bilirubin AST ALT Alkaline Phosphatase Total Creatine Kinase CK-MB (CK-2) Troponin T C-Reactive Protein Total Protein Albumin Triglycerides LDL Cholesterol Direct HDL Cholesterol Free T4 PTH Intact Urine WBC (Auto) Urine Creatinine Salicylates Acetaminophen Crossmatch 03/23/19 03/24/19 03/24/19 17:47 00:00 04:50 WBC 35.0 H RBC Hgb 10.4 L Hct 32.4 L RDW Plt Count 60 L Lymph % (Auto) Seg Neutrophils % Seg Neuts % (Manual) 93.0 H Lymphocytes % (Manual) 5.0 L Monocytes % (Manual) Nucleated RBC % 7.0 H Seg Neutrophils # Seg Neutrophils # Man 32.6 H Lymphocytes # (Manual) Monocytes # (Manual) PT INR D-Dimer Heparin Anti-Xa Level POC ABG pH ABG pH POC ABG pCO2 POC ABG pO2 ABG pO2 ABG HCO3 ABG O2 Saturation ABG Base Excess ABG Hemoglobin Oxyhemoglobin Sodium Potassium Chloride Carbon Dioxide BUN Creatinine Glucose POC Glucose 111 H 108 H Lactic Acid Calcium Phosphorus Magnesium Total Bilirubin Direct Bilirubin AST ALT Alkaline Phosphatase Total Creatine Kinase CK-MB (CK-2) Troponin T C-Reactive Protein Total Protein Albumin Triglycerides LDL Cholesterol Direct HDL Cholesterol Free T4 PTH Intact Urine WBC (Auto) Urine Creatinine Salicylates Acetaminophen Crossmatch 03/24/19 03/24/19 03/24/19 04:50 05:06 12:55 WBC RBC Hgb Hct RDW Plt Count Lymph % (Auto) Seg Neutrophils % Seg Neuts % (Manual) Lymphocytes % (Manual) Monocytes % (Manual) Nucleated RBC % Seg Neutrophils # Seg Neutrophils # Man Lymphocytes # (Manual) Monocytes # (Manual) PT INR D-Dimer Heparin Anti-Xa Level POC ABG pH ABG pH POC ABG pCO2 POC ABG pO2 ABG pO2 ABG HCO3 ABG O2 Saturation ABG Base Excess ABG Hemoglobin Oxyhemoglobin Sodium 134 L Potassium 5.1 H Chloride 95.3 L Carbon Dioxide 21 L BUN 85 H Creatinine 6.4 H Glucose 109 H POC Glucose 112 H 110 H Lactic Acid Calcium 5.8 L* Phosphorus Magnesium Total Bilirubin Direct Bilirubin AST ALT Alkaline Phosphatase Total Creatine Kinase 5747 H CK-MB (CK-2) Troponin T C-Reactive Protein Total Protein Albumin Triglycerides LDL Cholesterol Direct HDL Cholesterol Free T4 PTH Intact Urine WBC (Auto) Urine Creatinine Salicylates Acetaminophen Crossmatch 03/24/19 03/25/19 03/25/19 23:29 05:00 05:00 WBC RBC Hgb Hct RDW Plt Count Lymph % (Auto) Seg Neutrophils % Seg Neuts % (Manual) Lymphocytes % (Manual) Monocytes % (Manual) Nucleated RBC % Seg Neutrophils # Seg Neutrophils # Man Lymphocytes # (Manual) Monocytes # (Manual) PT INR D-Dimer Heparin Anti-Xa Level POC ABG pH ABG pH POC ABG pCO2 POC ABG pO2 ABG pO2 ABG HCO3 ABG O2 Saturation ABG Base Excess ABG Hemoglobin Oxyhemoglobin Sodium 133 L Potassium Chloride 94.0 L Carbon Dioxide 21 L BUN 81 H Creatinine 6.4 H Glucose POC Glucose 109 H Lactic Acid Calcium 5.5 L* Phosphorus Magnesium Total Bilirubin Direct Bilirubin AST 80 H ALT Alkaline Phosphatase 202 H Total Creatine Kinase 3589 H CK-MB (CK-2) Troponin T C-Reactive Protein Total Protein 5.3 L Albumin 2.4 L Triglycerides LDL Cholesterol Direct HDL Cholesterol Free T4 PTH Intact 329.9 H Urine WBC (Auto) Urine Creatinine Salicylates Acetaminophen Crossmatch 03/25/19 03/25/19 03/26/19 05:00 06:30 04:30 WBC 23.3 H RBC 3.61 L Hgb 10.2 L Hct 31.2 L RDW Plt Count 57 L Lymph % (Auto) Seg Neutrophils % Seg Neuts % (Manual) 92.0 H Lymphocytes % (Manual) 6.0 L Monocytes % (Manual) Nucleated RBC % Seg Neutrophils # Seg Neutrophils # Man 21.4 H Lymphocytes # (Manual) Monocytes # (Manual) PT INR D-Dimer Heparin Anti-Xa Level POC ABG pH ABG pH 7.326 L POC ABG pCO2 POC ABG pO2 ABG pO2 109.5 H 137.4 H ABG HCO3 18.8 L 18.6 L ABG O2 Saturation ABG Base Excess -4.4 L -6.8 L ABG Hemoglobin 10.1 L 9.9 L Oxyhemoglobin Sodium Potassium Chloride Carbon Dioxide BUN Creatinine Glucose POC Glucose Lactic Acid Calcium Phosphorus Magnesium Total Bilirubin Direct Bilirubin AST ALT Alkaline Phosphatase Total Creatine Kinase CK-MB (CK-2) Troponin T C-Reactive Protein Total Protein Albumin Triglycerides LDL Cholesterol Direct HDL Cholesterol Free T4 PTH Intact Urine WBC (Auto) Urine Creatinine Salicylates Acetaminophen Crossmatch 03/26/19 03/26/19 03/26/19 23:22 Unknown Unknown WBC 19.5 H RBC 3.44 L Hgb 9.8 L Hct 29.9 L RDW Plt Count 85 L Lymph % (Auto) Seg Neutrophils % Seg Neuts % (Manual) 95.0 H Lymphocytes % (Manual) 3.0 L Monocytes % (Manual) Nucleated RBC % Seg Neutrophils # Seg Neutrophils # Man 18.5 H Lymphocytes # (Manual) 0.6 L Monocytes # (Manual) PT INR D-Dimer Heparin Anti-Xa Level POC ABG pH ABG pH POC ABG pCO2 POC ABG pO2 ABG pO2 ABG HCO3 ABG O2 Saturation ABG Base Excess ABG Hemoglobin Oxyhemoglobin Sodium 135 L Potassium 5.2 H D Chloride 92.2 L Carbon Dioxide 18 L BUN 109 H Creatinine 8.5 H Glucose 117 H POC Glucose 69 L Lactic Acid Calcium 4.5 L* D Phosphorus Magnesium Total Bilirubin Direct Bilirubin AST ALT Alkaline Phosphatase Total Creatine Kinase 4527 H CK-MB (CK-2) Troponin T C-Reactive Protein Total Protein Albumin Triglycerides LDL Cholesterol Direct HDL Cholesterol Free T4 PTH Intact Urine WBC (Auto) Urine Creatinine Salicylates Acetaminophen Crossmatch 03/27/19 03/27/19 03/27/19 04:30 04:30 09:00 WBC 19.2 H RBC 3.42 L Hgb 9.9 L Hct 30.0 L RDW Plt Count 84 L Lymph % (Auto) Seg Neutrophils % Seg Neuts % (Manual) Lymphocytes % (Manual) Monocytes % (Manual) Nucleated RBC % Seg Neutrophils # Seg Neutrophils # Man Lymphocytes # (Manual) Monocytes # (Manual) PT INR D-Dimer Heparin Anti-Xa Level POC ABG pH ABG pH POC ABG pCO2 POC ABG pO2 ABG pO2 ABG HCO3 ABG O2 Saturation ABG Base Excess ABG Hemoglobin Oxyhemoglobin Sodium 135 L Potassium Chloride 93.5 L Carbon Dioxide BUN 84 H Creatinine 7.1 H Glucose POC Glucose Lactic Acid Calcium 5.0 L* Phosphorus Magnesium Total Bilirubin Direct Bilirubin AST 78 H ALT Alkaline Phosphatase 135 H Total Creatine Kinase 4677 H CK-MB (CK-2) Troponin T C-Reactive Protein Total Protein 4.8 L Albumin 2.3 L Triglycerides 409 H LDL Cholesterol Direct HDL Cholesterol Free T4 PTH Intact Urine WBC (Auto) Urine Creatinine Salicylates Acetaminophen Crossmatch 03/27/19 03/27/19 03/27/19 12:37 14:15 14:15 WBC RBC Hgb 9.7 L Hct 29.5 L RDW Plt Count 87 L Lymph % (Auto) Seg Neutrophils % Seg Neuts % (Manual) Lymphocytes % (Manual) Monocytes % (Manual) Nucleated RBC % Seg Neutrophils # Seg Neutrophils # Man Lymphocytes # (Manual) Monocytes # (Manual) PT 15.9 H INR 1.30 H D-Dimer Heparin Anti-Xa Level POC ABG pH ABG pH POC ABG pCO2 POC ABG pO2 ABG pO2 ABG HCO3 ABG O2 Saturation ABG Base Excess ABG Hemoglobin Oxyhemoglobin Sodium Potassium Chloride Carbon Dioxide BUN Creatinine Glucose POC Glucose 129 H Lactic Acid Calcium Phosphorus Magnesium Total Bilirubin Direct Bilirubin AST ALT Alkaline Phosphatase Total Creatine Kinase CK-MB (CK-2) Troponin T C-Reactive Protein Total Protein Albumin Triglycerides LDL Cholesterol Direct HDL Cholesterol Free T4 PTH Intact Urine WBC (Auto) Urine Creatinine Salicylates Acetaminophen Crossmatch 03/27/19 03/27/19 03/27/19 18:00 19:22 19:23 WBC RBC Hgb Hct RDW Plt Count Lymph % (Auto) Seg Neutrophils % Seg Neuts % (Manual) Lymphocytes % (Manual) Monocytes % (Manual) Nucleated RBC % Seg Neutrophils # Seg Neutrophils # Man Lymphocytes # (Manual) Monocytes # (Manual) PT INR D-Dimer Heparin Anti-Xa Level < 0.10 L POC ABG pH ABG pH POC ABG pCO2 POC ABG pO2 ABG pO2 ABG HCO3 ABG O2 Saturation ABG Base Excess ABG Hemoglobin Oxyhemoglobin Sodium Potassium Chloride Carbon Dioxide BUN Creatinine Glucose POC Glucose 121 H Lactic Acid Calcium Phosphorus Magnesium Total Bilirubin Direct Bilirubin AST ALT Alkaline Phosphatase Total Creatine Kinase 4517 H CK-MB (CK-2) Troponin T C-Reactive Protein Total Protein Albumin Triglycerides LDL Cholesterol Direct HDL Cholesterol Free T4 PTH Intact Urine WBC (Auto) Urine Creatinine Salicylates Acetaminophen Crossmatch 03/27/19 03/27/19 03/28/19 22:10 23:52 03:49 WBC RBC Hgb Hct RDW Plt Count Lymph % (Auto) Seg Neutrophils % Seg Neuts % (Manual) Lymphocytes % (Manual) Monocytes % (Manual) Nucleated RBC % Seg Neutrophils # Seg Neutrophils # Man Lymphocytes # (Manual) Monocytes # (Manual) PT INR D-Dimer Heparin Anti-Xa Level POC ABG pH 7.338 L ABG pH POC ABG pCO2 33.1 L POC ABG pO2 ABG pO2 ABG HCO3 ABG O2 Saturation ABG Base Excess ABG Hemoglobin Oxyhemoglobin Sodium Potassium Chloride Carbon Dioxide BUN Creatinine Glucose POC Glucose 113 H 117 H Lactic Acid Calcium Phosphorus Magnesium Total Bilirubin Direct Bilirubin AST ALT Alkaline Phosphatase Total Creatine Kinase CK-MB (CK-2) Troponin T C-Reactive Protein Total Protein Albumin Triglycerides LDL Cholesterol Direct HDL Cholesterol Free T4 PTH Intact Urine WBC (Auto) Urine Creatinine Salicylates Acetaminophen Crossmatch 03/28/19 03/28/19 03/28/19 05:13 05:13 06:18 WBC RBC Hgb Hct RDW Plt Count Lymph % (Auto) Seg Neutrophils % Seg Neuts % (Manual) Lymphocytes % (Manual) Monocytes % (Manual) Nucleated RBC % Seg Neutrophils # Seg Neutrophils # Man Lymphocytes # (Manual) Monocytes # (Manual) PT INR D-Dimer Heparin Anti-Xa Level 0.23 L POC ABG pH ABG pH POC ABG pCO2 POC ABG pO2 ABG pO2 ABG HCO3 ABG O2 Saturation ABG Base Excess ABG Hemoglobin Oxyhemoglobin Sodium 135 L Potassium 5.5 H D Chloride 95.1 L Carbon Dioxide 16 L D BUN 129 H Creatinine 9.3 H Glucose 158 H POC Glucose 202 H Lactic Acid Calcium 4.0 L* D Phosphorus 12.40 H Magnesium Total Bilirubin Direct Bilirubin AST ALT Alkaline Phosphatase Total Creatine Kinase 4266 H CK-MB (CK-2) Troponin T C-Reactive Protein Total Protein Albumin Triglycerides LDL Cholesterol Direct HDL Cholesterol Free T4 PTH Intact Urine WBC (Auto) Urine Creatinine Salicylates Acetaminophen Crossmatch 03/28/19 03/28/19 03/28/19 08:25 10:00 12:00 WBC RBC Hgb 4.9 L* D Hct 15.4 L* D RDW Plt Count Lymph % (Auto) Seg Neutrophils % Seg Neuts % (Manual) Lymphocytes % (Manual) Monocytes % (Manual) Nucleated RBC % Seg Neutrophils # Seg Neutrophils # Man Lymphocytes # (Manual) Monocytes # (Manual) PT 17.9 H INR 1.52 H D-Dimer 4845.98 H Heparin Anti-Xa Level POC ABG pH ABG pH POC ABG pCO2 POC ABG pO2 ABG pO2 ABG HCO3 ABG O2 Saturation ABG Base Excess ABG Hemoglobin Oxyhemoglobin Sodium Potassium Chloride Carbon Dioxide BUN Creatinine Glucose POC Glucose Lactic Acid Calcium Phosphorus Magnesium Total Bilirubin Direct Bilirubin AST ALT Alkaline Phosphatase Total Creatine Kinase CK-MB (CK-2) Troponin T C-Reactive Protein Total Protein Albumin Triglycerides LDL Cholesterol Direct HDL Cholesterol Free T4 PTH Intact Urine WBC (Auto) Urine Creatinine Salicylates Acetaminophen Crossmatch See Detail 03/28/19 03/28/19 03/28/19 12:28 14:10 17:43 WBC RBC Hgb 5.9 L* Hct 18.3 L* RDW Plt Count Lymph % (Auto) Seg Neutrophils % Seg Neuts % (Manual) Lymphocytes % (Manual) Monocytes % (Manual) Nucleated RBC % Seg Neutrophils # Seg Neutrophils # Man Lymphocytes # (Manual) Monocytes # (Manual) PT INR D-Dimer Heparin Anti-Xa Level POC ABG pH ABG pH POC ABG pCO2 POC ABG pO2 ABG pO2 ABG HCO3 ABG O2 Saturation ABG Base Excess ABG Hemoglobin Oxyhemoglobin Sodium Potassium Chloride Carbon Dioxide BUN Creatinine Glucose POC Glucose 153 H 159 H Lactic Acid Calcium Phosphorus Magnesium Total Bilirubin Direct Bilirubin AST ALT Alkaline Phosphatase Total Creatine Kinase CK-MB (CK-2) Troponin T C-Reactive Protein Total Protein Albumin Triglycerides LDL Cholesterol Direct HDL Cholesterol Free T4 PTH Intact Urine WBC (Auto) Urine Creatinine Salicylates Acetaminophen Crossmatch 03/28/19 03/28/19 03/28/19 18:10 Unknown 23:59 WBC 24.8 H RBC 3.42 L Hgb 10.2 L D Hct 31.1 L D RDW 15.4 H Plt Count 54 L Lymph % (Auto) Seg Neutrophils % Seg Neuts % (Manual) 91.0 H Lymphocytes % (Manual) 8.0 L Monocytes % (Manual) Nucleated RBC % Seg Neutrophils # Seg Neutrophils # Man 22.6 H Lymphocytes # (Manual) Monocytes # (Manual) PT INR D-Dimer Heparin Anti-Xa Level POC ABG pH ABG pH POC ABG pCO2 POC ABG pO2 ABG pO2 ABG HCO3 ABG O2 Saturation ABG Base Excess ABG Hemoglobin Oxyhemoglobin Sodium Potassium 5.7 H Chloride Carbon Dioxide BUN Creatinine Glucose POC Glucose 107 H Lactic Acid Calcium Phosphorus Magnesium Total Bilirubin Direct Bilirubin AST ALT Alkaline Phosphatase Total Creatine Kinase CK-MB (CK-2) Troponin T C-Reactive Protein Total Protein Albumin Triglycerides LDL Cholesterol Direct HDL Cholesterol Free T4 PTH Intact Urine WBC (Auto) Urine Creatinine Salicylates Acetaminophen Crossmatch 03/29/19 03/29/19 03/29/19 04:29 05:46 06:22 WBC RBC Hgb 8.6 L Hct 25.7 L RDW Plt Count 93 L Lymph % (Auto) Seg Neutrophils % Seg Neuts % (Manual) Lymphocytes % (Manual) Monocytes % (Manual) Nucleated RBC % Seg Neutrophils # Seg Neutrophils # Man Lymphocytes # (Manual) Monocytes # (Manual) PT INR D-Dimer Heparin Anti-Xa Level POC ABG pH ABG pH POC ABG pCO2 32.2 L POC ABG pO2 ABG pO2 ABG HCO3 ABG O2 Saturation ABG Base Excess ABG Hemoglobin Oxyhemoglobin Sodium Potassium Chloride Carbon Dioxide BUN Creatinine Glucose POC Glucose 113 H Lactic Acid Calcium Phosphorus Magnesium Total Bilirubin Direct Bilirubin AST ALT Alkaline Phosphatase Total Creatine Kinase CK-MB (CK-2) Troponin T C-Reactive Protein Total Protein Albumin Triglycerides LDL Cholesterol Direct HDL Cholesterol Free T4 PTH Intact Urine WBC (Auto) Urine Creatinine Salicylates Acetaminophen Crossmatch 03/29/19 03/29/19 03/29/19 06:22 06:22 06:22 WBC 23.2 H RBC 2.91 L Hgb 8.6 L Hct 25.8 L RDW Plt Count 91 L Lymph % (Auto) Seg Neutrophils % Seg Neuts % (Manual) Lymphocytes % (Manual) Monocytes % (Manual) Nucleated RBC % Seg Neutrophils # Seg Neutrophils # Man Lymphocytes # (Manual) Monocytes # (Manual) PT INR D-Dimer Heparin Anti-Xa Level POC ABG pH ABG pH POC ABG pCO2 POC ABG pO2 ABG pO2 ABG HCO3 ABG O2 Saturation ABG Base Excess ABG Hemoglobin Oxyhemoglobin Sodium 133 L Potassium Chloride 93.8 L Carbon Dioxide 18 L BUN 109 H Creatinine 7.4 H Glucose 124 H POC Glucose Lactic Acid Calcium 4.6 L* Phosphorus Magnesium Total Bilirubin Direct Bilirubin AST ALT Alkaline Phosphatase Total Creatine Kinase 3401 H CK-MB (CK-2) Troponin T C-Reactive Protein Total Protein Albumin Triglycerides 309 H LDL Cholesterol Direct HDL Cholesterol Free T4 PTH Intact Urine WBC (Auto) Urine Creatinine Salicylates Acetaminophen Crossmatch 03/29/19 03/29/19 03/29/19 11:48 11:48 18:24 WBC RBC Hgb 7.8 L Hct 23.2 L RDW Plt Count Lymph % (Auto) Seg Neutrophils % Seg Neuts % (Manual) Lymphocytes % (Manual) Monocytes % (Manual) Nucleated RBC % Seg Neutrophils # Seg Neutrophils # Man Lymphocytes # (Manual) Monocytes # (Manual) PT 15.3 H INR 1.24 H D-Dimer Heparin Anti-Xa Level POC ABG pH ABG pH POC ABG pCO2 POC ABG pO2 ABG pO2 ABG HCO3 ABG O2 Saturation ABG Base Excess ABG Hemoglobin Oxyhemoglobin Sodium Potassium Chloride Carbon Dioxide BUN Creatinine Glucose POC Glucose 122 H Lactic Acid Calcium Phosphorus Magnesium Total Bilirubin Direct Bilirubin AST ALT Alkaline Phosphatase Total Creatine Kinase CK-MB (CK-2) Troponin T C-Reactive Protein Total Protein Albumin Triglycerides LDL Cholesterol Direct HDL Cholesterol Free T4 PTH Intact Urine WBC (Auto) Urine Creatinine Salicylates Acetaminophen Crossmatch 10/10/1303/30/19 03/30/19 00:40 04:31 05:04 WBC RBC Hgb 7.6 L Hct 23.0 L RDW Plt Count Lymph % (Auto) Seg Neutrophils % Seg Neuts % (Manual) Lymphocytes % (Manual) Monocytes % (Manual) Nucleated RBC % Seg Neutrophils # Seg Neutrophils # Man Lymphocytes # (Manual) Monocytes # (Manual) PT INR D-Dimer Heparin Anti-Xa Level POC ABG pH 7.346 L ABG pH POC ABG pCO2 POC ABG pO2 62 L ABG pO2 ABG HCO3 ABG O2 Saturation ABG Base Excess ABG Hemoglobin Oxyhemoglobin Sodium Potassium Chloride Carbon Dioxide BUN 79 H Creatinine 6.4 H Glucose POC Glucose Lactic Acid Calcium 6.1 L D Phosphorus Magnesium Total Bilirubin Direct Bilirubin AST ALT Alkaline Phosphatase Total Creatine Kinase CK-MB (CK-2) Troponin T C-Reactive Protein Total Protein Albumin Triglycerides LDL Cholesterol Direct HDL Cholesterol Free T4 PTH Intact Urine WBC (Auto) Urine Creatinine Salicylates Acetaminophen Crossmatch 03/30/19 03/30/19 03/30/19 08:45 22:43 23:38 WBC 14.3 H RBC 2.33 L Hgb 7.0 L 7.4 L Hct 21.0 L 22.3 L RDW 15.6 H Plt Count 135 L Lymph % (Auto) Seg Neutrophils % Seg Neuts % (Manual) Lymphocytes % (Manual) Monocytes % (Manual) Nucleated RBC % Seg Neutrophils # Seg Neutrophils # Man Lymphocytes # (Manual) Monocytes # (Manual) PT INR D-Dimer Heparin Anti-Xa Level POC ABG pH ABG pH POC ABG pCO2 POC ABG pO2 ABG pO2 ABG HCO3 ABG O2 Saturation ABG Base Excess ABG Hemoglobin Oxyhemoglobin Sodium Potassium Chloride Carbon Dioxide BUN Creatinine Glucose POC Glucose 155 H Lactic Acid Calcium Phosphorus Magnesium Total Bilirubin Direct Bilirubin AST ALT Alkaline Phosphatase Total Creatine Kinase CK-MB (CK-2) Troponin T C-Reactive Protein Total Protein Albumin Triglycerides LDL Cholesterol Direct HDL Cholesterol Free T4 PTH Intact Urine WBC (Auto) Urine Creatinine Salicylates Acetaminophen Crossmatch 03/30/19 03/31/19 03/31/19 Unknown 04:44 04:44 WBC 11.5 H RBC 2.40 L Hgb 7.3 L Hct 21.9 L RDW 15.4 H Plt Count Lymph % (Auto) 10.6 L Seg Neutrophils % 81.7 H Seg Neuts % (Manual) Lymphocytes % (Manual) Monocytes % (Manual) Nucleated RBC % Seg Neutrophils # 9.4 H Seg Neutrophils # Man Lymphocytes # (Manual) Monocytes # (Manual) PT INR D-Dimer Heparin Anti-Xa Level POC ABG pH ABG pH POC ABG pCO2 POC ABG pO2 ABG pO2 ABG HCO3 ABG O2 Saturation ABG Base Excess ABG Hemoglobin Oxyhemoglobin Sodium 135 L Potassium Chloride 96.7 L Carbon Dioxide 19 L BUN 94 H Creatinine 7.8 H Glucose POC Glucose Lactic Acid Calcium 5.3 L* Phosphorus 8.20 H Magnesium Total Bilirubin Direct Bilirubin 0.4 H AST 63 H ALT Alkaline Phosphatase Total Creatine Kinase CK-MB (CK-2) Troponin T C-Reactive Protein Total Protein 4.9 L Albumin 2.2 L Triglycerides LDL Cholesterol Direct HDL Cholesterol Free T4 PTH Intact Urine WBC (Auto) Urine Creatinine Salicylates Acetaminophen Crossmatch 03/31/19 03/31/19 05:44 08:20 WBC RBC Hgb Hct RDW Plt Count Lymph % (Auto) Seg Neutrophils % Seg Neuts % (Manual) Lymphocytes % (Manual) Monocytes % (Manual) Nucleated RBC % Seg Neutrophils # Seg Neutrophils # Man Lymphocytes # (Manual) Monocytes # (Manual) PT INR D-Dimer Heparin Anti-Xa Level POC ABG pH ABG pH POC ABG pCO2 53.5 H POC ABG pO2 62 L ABG pO2 ABG HCO3 ABG O2 Saturation ABG Base Excess ABG Hemoglobin Oxyhemoglobin Sodium Potassium Chloride Carbon Dioxide BUN Creatinine Glucose POC Glucose Lactic Acid Calcium Phosphorus Magnesium Total Bilirubin Direct Bilirubin 0.4 H AST 60 H ALT Alkaline Phosphatase Total Creatine Kinase CK-MB (CK-2) Troponin T C-Reactive Protein Total Protein 4.8 L Albumin 2.1 L Triglycerides LDL Cholesterol Direct HDL Cholesterol Free T4 PTH Intact Urine WBC (Auto) Urine Creatinine Salicylates Acetaminophen Crossmatch Allied health notes reviewed: nursing
[2019-03-31] MEDS: NORepinephrine/NS 4 MG-250 ML 4 MG/250 ML BAG IV SCH ×2 (14:42→23:30)
--- NOTE | 2019-03-31 15:00 | XRay Report ---
ABDOMEN 1 VIEW(S) 03/31/2019 2:19 PM INDICATION / CLINICAL INFORMATION: Confirmation of OG tube. COMPARISON: 03/28/2019 x-ray abdomen FINDINGS: The tip of an esophagogastric tube projects over the body of the stomach in expected position. Signer Name: Luís Apple MD Signed: 03/31/2019 2:56 PM Workstation Name: [id number]
[2019-03-31] MEDS ORDERED: SODIUM CHLORIDE*PRIMING MACHINE ONLY FOR DIALYSIS MC ONE (15:19)
[2019-03-31] MEDS ORDERED: EPOETIN ALFA 20,000 UNIT/1 ML INJ ONE (15:19)
[2019-03-31] MEDS: CALCIUM ACETATE 667 MG CAP PO SCH ×2 (16:22→22:07)
[2019-03-31] MEDS: AMIODARONE 900 MG in DEXTROSE 5% IN WATER 482 ML IV SCH (16:37)
[2019-03-31] MEDS: EPOETIN ALFA 20,000 UNIT/1 ML INJ SUB-Q PRN (20:09)
[2019-03-31] MEDS ORDERED: VANCOMYCIN 2,000 MG in SODIUM CHLORIDE 0.9% 500 ML 500 ML IV ONE (22:00)
[2019-04-01] MEDS: fentaNYL DRIP Premix 2,000 MCG/100 ML BAG IV SCH ×5 (03:32→21:29)
[2019-04-01] MEDS: PANTOPRAZOLE 80 MG in SODIUM CHLORIDE 0.9% 100 ML IV SCH ×3 (03:33→21:26)
[2019-04-01 05:38] LABS: Basophils % (Auto) 0.4 % (0.0-1.8); Eosinophils # (Auto) 0.1 K/mm3 (0.0-0.4); Eosinophils % (Auto) 1.2 % (0.0-4.3); Hematocrit 24.1 % (35.5-45.6); Lymphocytes # (Auto) 0.7 K/mm3 (1.2-5.4); Lymphocytes % (Auto) 7.9 % (13.4-35.0); Mean Corpuscular HGB Conc 33 % (32-34); Mean Corpuscular Volume 93 fl (84-94); Monocytes # (Auto) 0.6 K/mm3 (0.0-0.8); Monocytes % (Auto) 6.9 % (0.0-7.3); Platelet Count 195 K/mm3 (140-440); Red Cell Distribution Width 15.7 % (13.2-15.2)
[2019-04-01 06:02] LABS: Calcium 6.5 mg/dL (8.4-10.2)
[2019-04-01] MEDS: NORepinephrine/NS 4 MG-250 ML 4 MG/250 ML BAG IV SCH ×2 (06:15→16:29)
[2019-04-01] MEDS: METOPROLOL TARTRATE 25 MG TAB PO SCH ×3 (08:16→20:54)
--- NOTE | 2019-04-01 08:27 | Event Note ---
Date: 04/01/19 pt remains inubated/mech vent on iv pressors iv amiodarone tel: afib/rvr bp 100/50 chest: decreased breath sounds cor irr irr abd soft imp: acute resp failure s/p cardipulm arrest parox afib/rvr plan: continue supportive care increase amio to 1mg/min. may need additional bolus
[2019-04-01] MEDS: CALCIUM ACETATE 667 MG CAP PO SCH ×3 (08:57→21:25)
[2019-04-01] MEDS: LORazepam 2 MG/ML VIAL IV PRN (09:37)
[2019-04-01] MEDS ORDERED: AMIODARONE 150 MG in DEXTROSE 5% IN WATER 97 ML IV ONE (09:42)
[2019-04-01] MEDS: fentaNYL 100 MCG/2 ML INJ IV PRN (09:47)
[2019-04-01] MEDS: PARICALCITOL 2 MCG/1 ML INJ IV SCH (10:37)
--- NOTE | 2019-04-01 10:46 | Progress Note ---
Assessment and Plan 1. Acute kidney injury: Vasomotor RUBEN in the setting of shock / volume depletion / Rhabdo. Baseline renal function is unknown. CT abdomen was negative for obstructive nephropathy. Monitor renal function. Renal prognosis is guarded. Avoid nephrotoxic agents. Meds dosage based on GFR. Patient was started on hemodialysis on 03/18/19 due to worsening metabolic acidosis and hyperkalemia. Hemodialysis: 03/18, 03/19, 03/20, 03/22, 03/23, 03/24, 03/26, 03/28, 03/29, 03/31. 2. FEN: Hyperkalemia, improved. Hyponatremia, improved. Metabolic acidosis, improved. Volume overload, UF with HD as tolerated. Hypocalcemia, likely multifactorial. On Phoslo and Zemplar. Monitor lytes. 3. Septic shock: Followed by ID. Currently on Levophed. 4. Rhabdomyolysis: CK level improving. 5. SVT / V.tach: Followed by Cards. 6. Respiratory failure: On vent. 7. Severe anemia: S/p PRBC. On Epogen. 8. Elevated transaminases. 9. Encephalopathy. Examination: General appearance: well-developed, appears stated age, obese, intubated, on vent HEENT: Atraumatic EYES: Pupils reacting to light Neck: supple Respiratory: coarse breath sounds Cardiology: regular, S1S2 heard, no murmur Gastrointestinal: no tenderness, obese, BS heard, scrotal edema noted Integumentary: no rash noted Neurologic: not responding Ext: trace edema of all 4 extremities Hemodialysis access: R IJ temp catheter Subjective Date of service: 04/01/19 Principal diagnosis: Septic Shock; Ac. hypoxemic resp failure; Renzo. PNA; Rhabdomyolysis; RUBEN Interval history: Patient was seen and examined at the bedside. Remain on the vent. Objective - Vital Signs Vital signs: Vital Signs - 12hr 03/31/19 03/31/19 03/31/19 23:00 23:15 23:30 Temperature Pulse Rate 131 H 127 H 126 H Respiratory 16 18 18 Rate Blood Pressure 128/70 132/66 127/52 O2 Sat by Pulse 100 100 100 Oximetry 03/31/19 04/01/19 04/01/19 23:45 00:00 00:15 Temperature Pulse Rate 121 H 115 H 128 H Respiratory 19 16 17 Rate Blood Pressure 131/62 125/58 O2 Sat by Pulse 99 96 97 Oximetry 04/01/19 04/01/19 04/01/19 00:31 00:33 00:45 Temperature 97.5 F L Pulse Rate 140 H 151 H Respiratory 17 16 Rate Blood Pressure 110/56 110/56 O2 Sat by Pulse 95 96 Oximetry 04/01/19 04/01/19 04/01/19 01:00 01:03 01:15 Temperature Pulse Rate 143 H 146 H 127 H Respiratory 18 17 Rate Blood Pressure 107/54 107/54 107/54 O2 Sat by Pulse 96 98 97 Oximetry 04/01/19 04/01/19 04/01/19 01:30 01:45 02:00 Temperature Pulse Rate 139 H 140 H 133 H Respiratory 17 17 17 Rate Blood Pressure 124/51 124/51 120/57 O2 Sat by Pulse 100 100 95 Oximetry 04/01/19 04/01/19 04/01/19 02:15 02:30 02:45 Temperature Pulse Rate 127 H 137 H 144 H Respiratory 16 17 14 Rate Blood Pressure 112/59 112/54 112/54 O2 Sat by Pulse 98 100 97 Oximetry 04/01/19 04/01/19 04/01/19 03:00 03:15 03:30 Temperature Pulse Rate 141 H 139 H 143 H Respiratory 16 17 18 Rate Blood Pressure 129/60 129/60 125/53 O2 Sat by Pulse 100 99 98 Oximetry 04/01/19 04/01/19 04/01/19 03:45 04:00 04:15 Temperature 100.5 F H Pulse Rate 128 H 138 H 138 H Respiratory 16 17 16 Rate Blood Pressure 125/53 126/58 126/58 O2 Sat by Pulse 100 99 100 Oximetry 04/01/19 04/01/19 04/01/19 04:31 04:45 04:53 Temperature Pulse Rate 135 H 137 H 144 H Respiratory 17 16 Rate Blood Pressure 112/55 112/55 121/58 O2 Sat by Pulse 93 92 94 Oximetry 04/01/19 04/01/19 04/01/19 05:00 05:15 05:30 Temperature Pulse Rate 142 H 131 H 129 H Respiratory 16 18 15 Rate Blood Pressure 138/81 138/81 116/55 O2 Sat by Pulse 84 87 91 Oximetry 04/01/19 04/01/19 04/01/19 05:45 06:00 06:15 Temperature Pulse Rate 141 H 133 H 140 H Respiratory 27 H 22 21 Rate Blood Pressure 116/55 123/54 123/54 O2 Sat by Pulse 93 100 92 Oximetry 04/01/19 04/01/19 04/01/19 06:30 06:45 07:00 Temperature Pulse Rate 127 H 128 H 148 H Respiratory 33 H 18 24 Rate Blood Pressure 107/53 107/53 120/55 O2 Sat by Pulse 84 81 L 100 Oximetry 04/01/19 04/01/19 04/01/19 07:15 07:30 07:45 Temperature Pulse Rate 142 H 126 H 143 H Respiratory 22 19 20 Rate Blood Pressure 120/55 111/52 95/48 O2 Sat by Pulse 100 100 100 Oximetry 04/01/19 04/01/19 04/01/19 08:00 08:01 08:15 Temperature 99.7 F H Pulse Rate 137 H 139 H Respiratory 21 16 Rate Blood Pressure 95/48 95/46 O2 Sat by Pulse 100 99 Oximetry 04/01/19 04/01/19 04/01/19 08:16 08:30 08:45 Temperature Pulse Rate 136 H 132 H 137 H Respiratory 29 H 16 Rate Blood Pressure 95/46 89/50 89/50 O2 Sat by Pulse 100 100 Oximetry 04/01/19 04/01/19 04/01/19 09:01 09:15 09:23 Temperature Pulse Rate 159 H 144 H 148 H Respiratory 15 16 Rate Blood Pressure 105/54 108/54 108/54 O2 Sat by Pulse 100 100 100 Oximetry 04/01/19 04/01/19 04/01/19 09:31 09:45 10:01 Temperature Pulse Rate 155 H 137 H 160 H Respiratory 19 16 17 Rate Blood Pressure 108/54 123/79 109/47 O2 Sat by Pulse 100 100 100 Oximetry - Lab 04/01/19 04:27 04/01/19 04:27 Most recent lab results ABG pH 7.326 pH Units (7.350-7.450) L 03/26/19 04:30 ABG pCO2 36.4 mm Hg 03/26/19 04:30 ABG pO2 137.4 mm Hg (80.0-90.0) H 03/26/19 04:30 ABG HCO3 18.6 mmol/L (20.0-26.0) L 03/26/19 04:30 ABG O2 Saturation 98.6 % (95.0-99.0) 03/26/19 04:30 Calcium 6.5 mg/dL (8.4-10.2) L D 04/01/19 04:27 Phosphorus 7.30 mg/dL (2.5-4.5) H 04/01/19 04:27 Magnesium 1.90 mg/dL (1.7-2.3) 03/31/19 15:07 Urine Creatinine 106.6 mg/dL (0.1-20.0) H 03/17/19 16:05 Urine Sodium 95 mmol/L 03/17/19 16:05 Medications & Allergies - Medications Allergies/Adverse Reactions: Allergies No Known Allergies Allergy (Unverified 03/16/19 17:17) Home Medications: Home Medications Medication Instructions Recorded Confirmed Last Taken Type Unobtainable 03/18/19 03/18/19 Unknown History Active Medications: Generic Name Dose Route Start Last Admin Trade Name Freq PRN Reason Stop Dose Admin Acetaminophen 650 mg 03/29/19 19:51 03/31/19 08:39 Tylenol MA 650 mg Q4H PRN Administration Fever > 100.5 Albuterol 2.5 mg 03/29/19 13:08 Proventil IH Q4HRT PRN Shortness Of Breath Lipase/Protease/Amylase 1 each 03/17/19 14:45 Pancreaze 10,500 Unit FEEDTUBE PRN PRN For Clogged Feeding Tube Calcium Acetate 1,334 mg 03/31/19 14:00 04/01/19 08:57 Phoslo PO 1,334 mg TID PAOLO Administration Dextrose 50 gm 03/19/19 18:39 03/26/19 23:26 D50w (25gm) Vial IV 50 gm PRN PRN Administration Hypoglycemia Epoetin Jet 20,000 unit 03/31/19 10:15 03/31/19 20:09 Procrit SUB-Q 20,000 unit NEYMAR PRN Administration hemodialysis Fentanyl 50 mcg 03/26/19 12:00 04/01/19 09:47 Sublimaze IV 50 mcg Q1H PRN Administration Pain, Moderate (4-6) Hydrophilic Ointment 1 applic 03/16/19 15:50 Vaseline Lip Therapy TP Q2HR PRN Dry Lips Phenylephrine HCl 100 mg/ 100 mls @ 3 mls/hr 03/17/19 02:30 09/23/19 18:48 Sodium Chloride IV Infused TITR PAOLO Titration Protocol 50 MCG/MIN Fentanyl Citrate 2,000 mcg in 100 mls @ 7.85 mls/hr 03/26/19 12:00 04/01/19 09:49 Fentanyl Drip Premix IV 3 mcg/kg/hr TITR PAOLO 23.55 mls/hr Administration Protocol 1 MCG/KG/HR Cefepime HCl 2 gm in 100 mls @ 200 mls/hr 03/27/19 14:00 03/31/19 13:29 Maxipime/Ns 2 Gm/100 Ml IV 200 mls/hr Q24H PAOLO Administration Protocol Norepinephrine 4 mg in 250 mls @ 7.5 mls/hr 03/27/19 22:16 04/01/19 06:15 Levophed Drip 4 Mg/Ns 250 Ml IV 6 mcg/min TITR PAOLO 22.5 mls/hr Administration Protocol 2 MCG/MIN Pantoprazole Sodium 80 mg/ 100 mls @ 10 mls/hr 03/28/19 09:30 04/01/19 03:33 Sodium Chloride IV 8 mg/hr DIRECT PAOLO 10 mls/hr Administration 8 MG/HR Vasopressin 20 unit/ Sodium 101 mls @ 9.09 mls/hr 03/28/19 09:00 03/28/19 15:38 Chloride IV 0 units/min TITR PAOLO 0 mls/hr Titration Protocol 0.03 UNITS/MIN Sodium Chloride 100 mls @ 999 mls/hr 03/29/19 15:30 Nacl 0.9% IV NEYMAR PRN Hypotension Amiodarone HCl 900 mg/ 500 mls @ 33.333 mls/hr 03/30/19 13:00 04/01/19 08:13 Dextrose IV 1 mg/min DIRECT PAOLO 33.333 mls/hr Infusion Protocol 1 MG/MIN Sodium Chloride 100 mls @ 999 mls/hr 03/31/19 10:15 Nacl 0.9% IV NEYMAR PRN Hypotension Lorazepam 2 mg 03/26/19 11:54 04/01/19 09:37 Ativan IV 2 mg Q1H PRN Administration Agitation Metoprolol Tartrate 25 mg 03/28/19 14:00 04/01/19 08:16 Lopressor PO Not Given TID PAOLO Multi-Ingred Cream/Lotion/Oil/Oint 1 applic 03/16/19 15:50 03/19/19 20:10 Artificial Tears Ophth Oint OU 1 applic Q4HR PRN Administration Dry Eye(s) Ondansetron HCl 4 mg 03/16/19 22:21 Zofran IV Q8H PRN Nausea And Vomiting Paricalcitol 2 mcg 03/30/19 10:00 04/01/19 10:37 Zemplar IV 2 mcg DAILY PAOLO Administration Simple Syrup 15 ml 03/17/19 14:45 03/26/19 23:19 Simple Syrup FEEDTUBE 15 ml PRN PRN Administration Hypoglycemia Simple Syrup 30 ml 03/17/19 14:45 Simple Syrup FEEDTUBE PRN PRN Hypoglycemia Sodium Bicarbonate 325 mg 03/17/19 14:45 Sodium Bicarbonate FEEDTUBE PRN PRN For Clogged Feeding Tube
--- NOTE | 2019-04-01 11:17 | Progress Note ---
Assessment and Plan Assessment and plan: 43-year-old man with history of GERD and obesity who presented to the hospital altered mental status, he was visiting from [place] and brought in by his friend. He has been feeling ill for a few days and have left eye discharge and there was mention of right axilla/patient was more lethargic, had trouble breathing and then suddenly could not walk on his own. When he came to the ER was unable to speak or follow commands, in the ER he was found to have SVT with heart rate in the 250s. The patient was shocks and medicated. He became more confused and had trouble protecting his airway, he was then intubated -[facility] Status post, cardiopulmonary arrest, status post shock for SVT in 250s after which she deteriorated into polymorphic V. tach for which she was shocked again. And then intubated in the ER Paroxysmal A. fib with RVR Torsade sparkle points/ventricular tachycardia EF 40% * Cardiology input appreciated, continue amiodarone drip, no beta-adela or CHRISTIN given hypotension, will need ischemic cardiac stratification when improved acute systolic chf, ef 40 fluid removal via HD, optimize cardiac meds when BP able to tolerate it -Please avoid IV fluids or electrolyte repletion with large volume bags. Calcium chloride being given as IV pushes Acute GI bleed, upper GI bleed due to PUD -PPI , heparin drip discontinued, EGD on 03/30 shows multiple ulcers, and large ulcer was rx with epi Acute blood loss anemia Transfused multiple units of PRBC, now improved Right IJ nonocclusive thrombosis Discussed with vascular surgery, patient unable to tolerate anticoagulation due to thrombocytopenia and GI bleeding. Will monitor Septic shock with multiorgan failure, off pressors for 48 hours Aspiration pneumonia Brain MRI was a limited study due to lack of contrast and motion artifact. No acute findings on MRI brain, could not evaluate for leptomeningeal enhancement without IV contrast , follow-up blood cultures, LP awaited due to low platelets. 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 The aggregate critical care time was [45] minutes. This time is in addition to time spent performing reported procedures but includes the following: [x] Data Review and interpretation [x] Patient assessment and monitoring of vital signs [x] Documentation [x] Medication orders and management History Interval history: Continues to have fever, no seizure, no agitation, -continues to have severe edema of upper extremities Remains intubated and sedated Hospitalist Physical - Physical exam Narrative exam: General.: Appears ill, intubated HEENT: Moist mucous membranes, extraocular muscles intact, no lymphadenopathy Neck: supple Cardiac: S1-S2 heard Lungs: Decreased breath sounds, ventilated breath sounds Abdomen: soft , nontender, nondistended, bowel sounds positive Extremities: 4 plus edema, weeping edema in UE Skin: no rash or lesions Neurologic: Intubated and sedated Psych: Intubated and sedated - Constitutional Vitals: Temp Pulse Resp BP Pulse Ox 99.7 F H 160 H 17 109/47 100 04/01/19 08:00 04/01/19 10:01 04/01/19 10:01 04/01/19 10:01 04/01/19 10:01 General appearance: Present: other (intubated) Results - Labs CBC & Chem 7: 04/01/19 04:27 04/01/19 04:27 Labs: Laboratory Last Values WBC 8.8 K/mm3 (4.5-11.0) 04/01/19 04:27 RBC 2.60 M/mm3 (3.65-5.03) L 04/01/19 04:27 Hgb 8.0 gm/dl (11.8-15.2) L 04/01/19 04:27 Hct 24.1 % (35.5-45.6) L 04/01/19 04:27 MCV 93 fl (84-94) 04/01/19 04:27 MCH 31 pg (28-32) 04/01/19 04:27 MCHC 33 % (32-34) 04/01/19 04:27 RDW 15.7 % (13.2-15.2) H 04/01/19 04:27 Plt Count 195 K/mm3 (140-440) 04/01/19 04:27 Lymph % (Auto) 7.9 % (13.4-35.0) L 04/01/19 04:27 [place] % (Auto) 6.9 % (0.0-7.3) 04/01/19 04:27 Eos % (Auto) 1.2 % (0.0-4.3) 04/01/19 04:27 Baso % (Auto) 0.4 % (0.0-1.8) 04/01/19 04:27 Lymph # 0.7 K/mm3 (1.2-5.4) L 04/01/19 04:27 [place] # 0.6 K/mm3 (0.0-0.8) 04/01/19 04:27 Eos # 0.1 K/mm3 (0.0-0.4) 04/01/19 04:27 Baso # 0.0 K/mm3 (0.0-0.1) 04/01/19 04:27 Add Manual Diff Complete 03/28/19 18:10 Total Counted 100 03/28/19 18:10 Seg Neutrophils % 83.6 % (40.0-70.0) H 04/01/19 04:27 Seg Neuts % (Manual) 91.0 % (40.0-70.0) H 03/28/19 18:10 Band Neutrophils % 0 % 03/28/19 18:10 Lymphocytes % (Manual) 8.0 % (13.4-35.0) L 03/28/19 18:10 Reactive Lymphs % (Man) 0 % 03/28/19 18:10 Monocytes % (Manual) 1.0 % (0.0-7.3) 03/28/19 18:10 Eosinophils % (Manual) 0 % (0.0-4.3) 03/28/19 18:10 Basophils % (Manual) 0 % (0.0-1.8) 03/28/19 18:10 Metamyelocytes % 0 % 03/28/19 18:10 Myelocytes % 0 % 03/28/19 18:10 Promyelocytes % 0 % 03/28/19 18:10 Blast Cells % 0 % 03/28/19 18:10 Nucleated RBC % Not Reportable 03/28/19 18:10 Seg Neutrophils # 7.3 K/mm3 (1.8-7.7) 04/01/19 04:27 Seg Neutrophils # Man 22.6 K/mm3 (1.8-7.7) H 03/28/19 18:10 Band Neutrophils # 0.0 K/mm3 03/28/19 18:10 Lymphocytes # (Manual) 2.0 K/mm3 (1.2-5.4) 03/28/19 18:10 Abs React Lymphs (Man) 0.0 K/mm3 03/28/19 18:10 Monocytes # (Manual) 0.2 K/mm3 (0.0-0.8) 03/28/19 18:10 Eosinophils # (Manual) 0.0 K/mm3 (0.0-0.4) 03/28/19 18:10 Basophils # (Manual) 0.0 K/mm3 (0.0-0.1) 03/28/19 18:10 Metamyelocytes # 0.0 K/mm3 03/28/19 18:10 Myelocytes # 0.0 K/mm3 03/28/19 18:10 Promyelocytes # 0.0 K/mm3 03/28/19 18:10 Blast Cells # 0.0 K/mm3 03/28/19 18:10 WBC Morphology Not Reportable 03/28/19 18:10 Hypersegmented Neuts Not Reportable 03/28/19 18:10 Hyposegmented Neuts Not Reportable 03/28/19 18:10 Hypogranular Neuts Not Reportable 03/28/19 18:10 Smudge Cells Not Reportable 03/28/19 18:10 Toxic Granulation Not Reportable 03/28/19 18:10 Toxic Vacuolation Not Reportable 03/28/19 18:10 Dohle Bodies Not Reportable 03/28/19 18:10 Pelger-Huet Anomaly Not Reportable 03/28/19 18:10 Joyce Rods Not Reportable 03/28/19 18:10 Platelet Estimate Appears decreased 03/28/19 18:10 Clumped Platelets Not Reportable 03/28/19 18:10 Plt Clumps, EDTA Not Reportable 03/28/19 18:10 Large Platelets Not Reportable 03/28/19 18:10 Giant Platelets Not Reportable 03/28/19 18:10 Platelet Satelliting Not Reportable 03/28/19 18:10 Plt Morphology Comment Not Reportable 03/28/19 18:10 RBC Morphology Not Reportable 03/28/19 18:10 Dimorphic RBCs Not Reportable 03/28/19 18:10 Polychromasia Not Reportable 03/28/19 18:10 Hypochromasia Not Reportable 03/28/19 18:10 Poikilocytosis Not Reportable 03/28/19 18:10 Anisocytosis Few 03/28/19 18:10 Microcytosis Not Reportable 03/28/19 18:10 Macrocytosis Not Reportable 03/28/19 18:10 Spherocytes Not Reportable 03/28/19 18:10 Pappenheimer Bodies Not Reportable 03/28/19 18:10 Sickle Cells Not Reportable 03/28/19 18:10 Target Cells Not Reportable 03/28/19 18:10 Tear Drop Cells Not Reportable 03/28/19 18:10 Ovalocytes Not Reportable 03/28/19 18:10 Stomatocytes Few 03/26/19 Unknown Helmet Cells Not Reportable 03/28/19 18:10 Shrestha-No Name Bodies Not Reportable 03/28/19 18:10 [place] Rings Not Reportable 03/28/19 18:10 Samantha Cells Not Reportable 03/28/19 18:10 Bite Cells Not Reportable 03/28/19 18:10 Crenated Cell Not Reportable 03/28/19 18:10 Elliptocytes Not Reportable 03/28/19 18:10 Acanthocytes (Spur) Not Reportable 03/28/19 18:10 Rouleaux Not Reportable 03/28/19 18:10 Hemoglobin C Crystals Not Reportable 03/28/19 18:10 Schistocytes Not Reportable 03/28/19 18:10 Malaria parasites Not Reportable 03/28/19 18:10 Phil Bodies Not Reportable 03/28/19 18:10 Hem Pathologist Commnt No 03/28/19 18:10 PT 15.3 Sec. (12.2-14.9) H 03/29/19 11:48 INR 1.24 (0.87-1.13) H 03/29/19 11:48 APTT 26.6 Sec. (24.2-36.6) 03/28/19 12:00 Fibrinogen 226 mg/dl (211-480) 03/28/19 12:00 D-Dimer 4845.98 ng/mlDDU (0-234) H 03/28/19 12:00 Heparin Anti-Xa Level 0.23 U.I./ml (0.3-0.7) L 03/28/19 05:13 POC ABG pH 7.283 (7.35-7.45) L 04/01/19 05:14 ABG pH 7.326 pH Units (7.350-7.450) L 03/26/19 04:30 POC ABG pCO2 53.4 (35-45) H 04/01/19 05:14 ABG pCO2 36.4 mm Hg 03/26/19 04:30 POC ABG pO2 241 (80-105) H 04/01/19 05:14 ABG pO2 137.4 mm Hg (80.0-90.0) H 03/26/19 04:30 POC ABG HCO3 25.3 (22-26 mml/L) 04/01/19 05:14 ABG HCO3 18.6 mmol/L (20.0-26.0) L 03/26/19 04:30 POC ABG Total CO2 27 (23-27mmol/L) 04/01/19 05:14 POC ABG O2 Sat 100 04/01/19 05:14 ABG O2 Saturation 98.6 % (95.0-99.0) 03/26/19 04:30 ABG O2 Content 13.7 (0.0-44) 03/26/19 04:30 POC ABG Base Excess -1 ((-2) - (+3)mmol/L) 04/01/19 05:14 ABG Base Excess -6.8 mmol/L (-2.0-3.0) L 03/26/19 04:30 ABG Hemoglobin 9.9 gm/dl (14.0-18.0) L 03/26/19 04:30 ABG Carboxyhemoglobin 1.4 % (0.0-5.0) 03/26/19 04:30 ABG Methemoglobin 0.6 % (0.0-1.5) 03/26/19 04:30 Oxyhemoglobin 96.5 % (95.0-99.0) 03/26/19 04:30 FiO2 70 % 04/01/19 05:14 Sodium 138 mmol/L (137-145) 04/01/19 04:27 Potassium 4.7 mmol/L (3.6-5.0) 04/01/19 04:27 Chloride 100.0 mmol/L (98-107) 04/01/19 04:27 Carbon Dioxide 23 mmol/L (22-30) 04/01/19 04:27 Anion Gap 20 mmol/L 04/01/19 04:27 BUN 68 mg/dL (9-20) H 04/01/19 04:27 Creatinine 6.6 mg/dL (0.8-1.5) H 04/01/19 04:27 Estimated GFR 11 ml/min 04/01/19 04:27 BUN/Creatinine Ratio 10 % 04/01/19 04:27 Glucose 95 mg/dL (75-100) 04/01/19 04:27 POC Glucose 111 (70-105) H 04/01/19 05:37 Lactic Acid 1.90 mmol/L (0.7-2.0) 03/21/19 21:31 Calcium 6.5 mg/dL (8.4-10.2) L D 04/01/19 04:27 Phosphorus 7.30 mg/dL (2.5-4.5) H 04/01/19 04:27 Magnesium 1.90 mg/dL (1.7-2.3) 03/31/19 15:07 Total Bilirubin 0.50 mg/dL (0.1-1.2) 03/31/19 08:20 Direct Bilirubin 0.4 mg/dL (0-0.2) H 03/31/19 08:20 Indirect Bilirubin 0.1 mg/dL 03/31/19 08:20 AST 60 units/L (5-40) H 03/31/19 08:20 ALT 30 units/L (7-56) 03/31/19 08:20 Alkaline Phosphatase 59 units/L (35-129) 03/31/19 08:20 Total Creatine Kinase 1652 units/L (55-170) H 04/01/19 04:27 CK-MB (CK-2) 54.3 ng/mL (0.0-4.0) H 03/17/19 07:16 CK-MB (CK-2) Rel Index 0.0 (0-4) 03/17/19 07:16 Troponin T 0.058 ng/mL (0.00-0.029) H 03/17/19 07:16 C-Reactive Protein 13.30 mg/dL (0.00-1.30) H 03/20/19 14:45 Total Protein 4.8 g/dL (6.3-8.2) L 03/31/19 08:20 Albumin 2.1 g/dL (3.9-5) L 03/31/19 08:20 Albumin/Globulin Ratio 0.8 % 03/31/19 08:20 Triglycerides 309 mg/dL (2-149) H 03/29/19 06:22 Cholesterol 88 mg/dL (50-199) 03/16/19 22:32 LDL Cholesterol Direct 10 mg/dL (50-130) L 03/16/19 22:32 HDL Cholesterol 7 mg/dL (40-59) L 03/16/19 22:32 Cholesterol/HDL Ratio 12.57 % 03/16/19 22:32 Procalcitonin 25.42 ng/mL (<0.15) 03/27/19 19:21 TSH 2.200 mlU/mL (0.270-4.200) 03/16/19 17:05 Free T4 0.72 ng/dL (0.76-1.46) L 03/16/19 17:05 PTH Intact 329.9 pg/mL (15-65) H 03/25/19 05:00 Urine Color Kathy (Yellow) 03/17/19 16:05 Urine Turbidity Cloudy (Clear) 03/17/19 16:05 Urine pH 5.0 (5.0-7.0) 03/17/19 16:05 Ur Specific [place] 1.014 (1.003-1.030) 03/17/19 16:05 Urine Protein >500 mg/dL (Negative) 03/17/19 16:05 Urine Glucose (UA) 50 mg/dL (Negative) 03/17/19 16:05 Urine Ketones Tr mg/dL (Negative) 03/17/19 16:05 Urine Blood Lg (Negative) 03/17/19 16:05 Urine Nitrite Neg (Negative) 03/17/19 16:05 Urine Bilirubin Neg (Negative) 03/17/19 16:05 Urine Urobilinogen < 2.0 mg/dL (<2.0) 03/17/19 16:05 Ur Leukocyte Esterase Mod (Negative) 03/17/19 16:05 Urine WBC (Auto) 30.0 /HPF (0.0-6.0) H 03/17/19 16:05 Urine RBC (Auto) 11.0 /HPF (0.0-6.0) 03/17/19 16:05 U Epithel Cells (Auto) < 1.0 /HPF (0-13.0) 03/17/19 16:05 Urine Mucus Few /HPF 03/17/19 16:05 Urine Sperm 2+ /HPF (ROVING CAN TENDER) 03/17/19 16:05 Urine Eosinophils None seen (None Seen) 03/17/19 16:05 Urine Creatinine 106.6 mg/dL (0.1-20.0) H 03/17/19 16:05 Urine Sodium 95 mmol/L 03/17/19 16:05 Vancomycin Trough 11.5 ug/mL (5.0-20.0) 03/18/19 13:19 Random Vancomycin 16.6 ug/mL (0-40.0) 03/30/19 04:31 Salicylates < 0.3 mg/dL (2.8-20.0) L 03/16/19 17:05 Urine Opiates Screen Presumptive negative 03/17/19 16:05 Urine Methadone Screen Presumptive negative 03/17/19 16:05 Acetaminophen < 5.0 ug/mL (10.0-30.0) L 03/16/19 17:05 Ur Barbiturates Screen Presumptive negative 03/17/19 16:05 Ur Phencyclidine Scrn Presumptive negative 03/17/19 16:05 Ur Amphetamines Screen Presumptive negative 03/17/19 16:05 U Benzodiazepines Scrn Presumptive positive 03/17/19 16:05 Urine Cocaine Screen Presumptive negative 03/17/19 16:05 U Marijuana (THC) Screen Presumptive negative 03/17/19 16:05 Drugs of Abuse Note Disclamer 03/17/19 16:05 Plasma/Serum Alcohol < 0.01 % (0-0.07) 03/16/19 17:05 Hepatitis A IgM Ab Non-reactive (NonReactive) 03/18/19 13:18 Hep Bs Antigen Non-reactive (Negative) 03/18/19 13:18 Hep B Core IgM Ab Non-reactive (NonReactive) 03/18/19 13:18 Hepatitis C Antibody Non-reactive (NonReactive) 03/18/19 13:18 HIV 1&2 Antibody Rapid Non react (Non React) 03/17/19 11:52 HIV P24 Antigen Non react (Non React) 03/17/19 11:52 Influenza A (Rapid) Negative (Negative) 03/17/19 17:00 Influenza B (Rapid) Negative (Negative) 03/17/19 17:00 Group A Strep Rapid Negative (Negative) 03/17/19 17:00 Blood Type A POSITIVE 03/28/19 10:00 Antibody Screen Negative 03/28/19 10:00 Crossmatch See Detail 03/28/19 10:00 Active Medications - Current Medications Current Medications: Generic Name Dose Route Start Last Admin Trade Name Freq PRN Reason Stop Dose Admin Acetaminophen 650 mg 03/29/19 19:51 03/31/19 08:39 Tylenol SC 650 mg Q4H PRN Administration Fever > 100.5 Albuterol 2.5 mg 03/29/19 13:08 Proventil IH Q4HRT PRN Shortness Of Breath Lipase/Protease/Amylase 1 each 03/17/19 14:[address] 10,500 Unit FEEDTUBE PRN PRN For Clogged Feeding Tube Calcium Acetate 1,334 mg 03/31/19 14:00 04/01/19 08:57 Phoslo PO 1,334 mg TID PAOLO Administration Dextrose 50 gm 03/19/19 18:39 03/26/19 23:26 D50w (25gm) Vial IV 50 gm PRN PRN Administration Hypoglycemia Epoetin Jet 20,000 unit 03/31/19 10:15 03/31/19 20:09 Procrit SUB-Q 20,000 unit NEYMAR PRN Administration hemodialysis Fentanyl 50 mcg 03/26/19 12:00 04/01/19 09:47 Sublimaze IV 50 mcg Q1H PRN Administration Pain, Moderate (4-6) Hydrophilic Ointment 1 applic 03/16/19 15:50 Vaseline Lip Therapy TP Q2HR PRN Dry Lips Phenylephrine HCl 100 mg/ 100 mls @ 3 mls/hr 03/17/19 02:30 03/19/19 18:48 Sodium Chloride IV Infused TITR PAOLO Titration Protocol 50 MCG/MIN Fentanyl Citrate 2,000 mcg in 100 mls @ 7.85 mls/hr 03/26/19 12:00 04/01/19 09:49 Fentanyl Drip Premix IV 3 mcg/kg/hr TITR PAOLO 23.55 mls/hr Administration Protocol 1 MCG/KG/HR Cefepime HCl 2 gm in 100 mls @ 200 mls/hr 03/27/19 14:00 03/31/19 13:29 Maxipime/Ns 2 Gm/100 Ml IV 200 mls/hr Q24H PAOLO Administration Protocol Norepinephrine 4 mg in 250 mls @ 7.5 mls/hr 03/27/19 22:16 04/01/19 06:15 Levophed Drip 4 Mg/Ns 250 Ml IV 6 mcg/min TITR PAOLO 22.5 mls/hr Administration Protocol 2 MCG/MIN Pantoprazole Sodium 80 mg/ 100 mls @ 10 mls/hr 03/28/19 09:30 04/01/19 03:33 Sodium Chloride IV 8 mg/hr DIRECT PAOLO 10 mls/hr Administration 8 MG/HR Vasopressin 20 unit/ Sodium 101 mls @ 9.09 mls/hr 03/28/19 09:00 03/28/19 15:38 Chloride IV 0 units/min TITR PAOLO 0 mls/hr Titration Protocol 0.03 UNITS/MIN Sodium Chloride 100 mls @ 999 mls/hr 03/29/19 15:30 Nacl 0.9% IV NEYMAR PRN Hypotension Amiodarone HCl 900 mg/ 500 mls @ 33.333 mls/hr 03/30/19 13:00 04/01/19 08:13 Dextrose IV 1 mg/min DIRECT PAOLO 33.333 mls/hr Infusion Protocol 1 MG/MIN Sodium Chloride 100 mls @ 999 mls/hr 03/31/19 10:15 Nacl 0.9% IV NEYMAR PRN Hypotension Lorazepam 2 mg 03/26/19 11:54 04/01/19 09:37 Ativan IV 2 mg Q1H PRN Administration Agitation Metoprolol Tartrate 25 mg 03/28/19 14:00 04/01/19 08:16 Lopressor PO Not Given TID PAOLO Multi-Ingred Cream/Lotion/Oil/Oint 1 applic 03/16/19 15:50 03/19/19 20:10 Artificial Tears Ophth Oint OU 1 applic Q4HR PRN Administration Dry Eye(s) Ondansetron HCl 4 mg 03/16/19 22:21 Zofran IV Q8H PRN Nausea And Vomiting Paricalcitol 2 mcg 03/30/19 10:00 04/01/19 10:37 Zemplar IV 2 mcg DAILY PAOLO Administration Simple Syrup 15 ml 03/17/19 14:45 03/26/19 23:19 Simple Syrup FEEDTUBE 15 ml PRN PRN Administration Hypoglycemia Simple Syrup 30 ml 03/17/19 14:45 Simple Syrup FEEDTUBE PRN PRN Hypoglycemia Sodium Bicarbonate 325 mg 03/17/19 14:45 Sodium Bicarbonate FEEDTUBE PRN PRN For Clogged Feeding Tube Nutrition/Malnutrition Assess - Dietary Evaluation Nutrition/Malnutrition Findings: Nutrition Notes Start: 03/17/19 14:22 Freq: Status: Active Protocol: Document 03/29/19 13:35 AIYANA (Rec: 03/29/19 14:13 AIYANA [email or web address]) Co-Sign 03/29/19 13:35 KH Nutrition Notes Initial or Follow up Reassessment Current Diagnosis Acute Kidney Injury Other Pertinent Diagnosis on HD, Septic shock,Multiple organ failure, encephalopathy, rhabdomyolysis Current Diet Nepro with Carbsteady at 55ml/ hr Labs/Tests Na 133 Cl 93.8 BUN 109 Cr 7.4 Pertinent Medications Vasopressin Height 6 ft Weight 157.3 kg [place] Body Weight (kg) 80.90 BMI 47.0 Subjective/Other Information F/U for TF tolerance at goal rate. Pt TF was stopped due to GI bleed Percent of energy/protein needs met: 0%/0% Burn Absent Trauma Absent Minimum of two criteria No #1 Nutrition Diagnosis Inadequate oral intake Diagnosis Progress(for reassessment Continues documentation) Is patient on ventilator? Yes Is Patient Ambulatory and/or Out of Bed No REE-([facility]-confined to bed) 2997.636 Kcal/Kg value to use for calculation 14 Approximate Energy Requirements Using 2202 kcal/Kg Calculation Used for Recommendations Kcal/kg Additional Notes Protein Needs: 202g (2.5g/kg IBW 80.9) Fluid Needs: 1 ml/kcal or per MD Nutrition Intervention Change Diet Order: Advance diet when medically feasible Nutrition Support: Nepro 1.8 at 55 ml/hr Flush 100 ml q4hr for hyponatremia Kcal 2,376 Protein (gm) 107 Fluid (mL) 960 Goal #1 TF restart when medically feasible Anticipated Discharge Needs: Unable to determine at this time Follow-Up By: 04/02/19 Additional Comments F/U for TF restart, POC
[2019-04-01] MEDS: AMIODARONE 900 MG in DEXTROSE 5% IN WATER 482 ML IV SCH (12:37)
[2019-04-01] MEDS: CEFEPIME/NS 2 GM/100 ML 2 GM/100 ML BAG IV SCH (14:29)
--- NOTE | 2019-04-01 15:42 | Progress Note ---
Assessment and Plan Cultures: 03/16/2019 sputum: salivary contamination 03/16/2019 Blood culture: no growth 03/17/2019 Urine culture no growth 03/17/2019 throat culture: no growth 03/26/2019 Blood culture: no growth so far 03/27/2019 Blood culture negative. Assessment: 43y/o male with possible psych history admitted on 03/16/2019 with: 1) Septic shock: pressors requirement is down. Only on one pressor. On amio gtt. Placed on multiple pressors on 03/28 due to acute GI bleed and severe Hg drop at 4.4. Noted fever 105 after right IJ exchanged overwire on 03/27, fever is better; leukocytosis improving. Fever source is unclear - suspect IJ DVT ?thrombophlebitis, other ?NMS ?sinusitis, ?drug fever. Repeat blood culture no growth so far. Brain MRI shows no acute intracranial abnormality, mild nonspecific chronic white matter changes, fluid throughout the sinuses and mastoid air cells. Venous US + right IJ DVT. Initial septic shock - Possible Infectious etiology v/s possibility of Neuroleptic Malignant Syndrome given psych history, high fever of 105F and extremely elevated CPK of >100K. Unclear if he was on any psych med. From ID standpoint, we will continue broad coverage for acute bacterial meningitis, tick borne illness, aspiration pneumonia. Blood culture negative UA with mild pyuria. HIV rapid negative. Strep A rapid ag negative. No obvious infectious source identified yet. 2) Probable aspiration pneumonia: Already completed adequate abx. 3) Acute respiratory failure: on the vent. Improving. 4) ?Right axillary edema: no abscess, US no collection seen 5) Acute encephalopathy: improving, communicating today heavily sedated. CT head showed diffuse cerebral edema ?artifact. But too unstable for LP at this time. Low suspicion for HSV meningoencephalitis given the degree of his initial shock and clinical status. Given nationwide acyclovir shortage and low suspicion, would not recommend IV Ganciclovir at this time. 6) Acute renal failure: renally dosing all abx, now on HD 7) Elevated LFTs/shock liver: also likely elevated from Rhabdomyolysis. Viral hepatitis panel negative. LFTs continue to improve. 8) Thrombocytopenia: multifactorial - better 9) Rhabdomyolysis: CK continues to improve 10) ?Enteritis: per CT ? no collection no perforation no obvious ischemic bowel. Gen. Surg following Recommendations: stop vancomycin continue cefepime renally adjusted for now 5-7 days from 03/27 Wound care team consult - multiple skin abrasions Dr Spencer monreal tomorrow Discussed with nursing staff Will follow. Risa Bryant MD Infectious Diseases [employer] [facility], [place] [facility] ([facility]) M [phone] O [phone] Subjective Date of service: 04/01/19 Principal diagnosis: anemia - IJ DVT Interval history: Remains on one pressor and Amio gtt, still low grade fever, no new GI bleed Objective - Exam Narrative Exam: General appearance: alert intubated opening eyes following commands Eyes: pupils dannie contracted poorly reactive, no jaundice HENT: Atraumatic; oropharynx with ETT/OGT Neck: no JVD Lungs:distant BS CV: RRR Abdomen: Soft, non-tender Extremities: marked dannie leg edema/arm edema Skin:no rash, +scrotal edema Psych: follows commands no agitated Neuro: follows commands no agitated Right IJ cath - Constitutional Vitals: Vital Signs Temp Pulse Resp BP Pulse Ox 98 F 89 16 130/54 100 04/01/19 12:00 04/01/19 14:30 04/01/19 14:30 04/01/19 14:30 04/01/19 14:30 Temperature -Last 24 Hours Temperature 98 F Temperature 99.7 F Temperature 100.5 F Temperature 97.5 F Temperature 99.3 F Temperature 99.3 F Temperature 100.0 F Temperature 99.5 F - Labs CBC & Chem 7: 04/01/19 04:27 04/01/19 04:27 Labs: Abnormal lab results 03/31/19 04/01/19 04/01/19 Range/Units 22:14 04:27 04:27 RBC 2.60 L (3.65-5.03) M/mm3 Hgb 8.0 L (11.8-15.2) gm/dl Hct 24.1 L (35.5-45.6) % RDW 15.7 H (13.2-15.2) % Lymph % (Auto) 7.9 L (13.4-35.0) % Lymph # 0.7 L (1.2-5.4) K/mm3 Seg Neutrophils % 83.6 H (40.0-70.0) % POC ABG pH 7.286 L (7.35-7.45) POC ABG pCO2 54.7 H (35-45) POC ABG pO2 179 H (80-105) BUN 68 H (9-20) mg/dL Creatinine 6.6 H (0.8-1.5) mg/dL POC Glucose (70-105) Calcium 6.5 L D (8.4-10.2) mg/dL Phosphorus 7.30 H (2.5-4.5) mg/dL Total Creatine Kinase 1652 H (55-170) units/L 04/01/19 04/01/19 Range/Units 05:14 05:37 RBC (3.65-5.03) M/mm3 Hgb (11.8-15.2) gm/dl Hct (35.5-45.6) % RDW (13.2-15.2) % Lymph % (Auto) (13.4-35.0) % Lymph # (1.2-5.4) K/mm3 Seg Neutrophils % (40.0-70.0) % POC ABG pH 7.283 L (7.35-7.45) POC ABG pCO2 53.4 H (35-45) POC ABG pO2 241 H (80-105) BUN (9-20) mg/dL Creatinine (0.8-1.5) mg/dL POC Glucose 111 H (70-105) Calcium (8.4-10.2) mg/dL Phosphorus (2.5-4.5) mg/dL Total Creatine Kinase (55-170) units/L
--- NOTE | 2019-04-01 16:13 | Progress Note ---
Assessment and Plan Severe sepsis with shock. Right axilla abscess versus localized pannus/fatty collection. Acute hypoxemic respiratory failure, on mechanical ventilator support. Likely aspiration pneumonia, bilateral. Morbid obesity. Rhabdomyolysis. Acute kidney injury. Leukocytosis. Morbid obesity. Metabolic acidosis. Lactic acidosis. Hypomagnesemia. Elevated serum transaminases/possible shock liver. Acute encephalopathy, toxic metabolic versus anoxic - NPO except for meds - resume low dose Reglan - continue prn albuterol treatments - continue set rate on MVS at 16/min - repeat ABG at 9 pm tonight - prn tylenol suppositories for fevers - keep on PRVC/AC for now - continue to wean FiO2 for sats > 90% - continue to wean Levophed for target MAP > 65 mmHg - continue amiodarone drip for A-fib - continue HD/UF per nephrology prescription - VAP bundle addressed - continue daily SAT's and SBT assessment as tolerated - target sedation for RASS 0 to -1 - prn analgesia per CPOT score - continue HD/UF per nephrology prescription and for toxin and volume control - prn supportive blood transfusions to keep serum Hb > 7.0 - Monitor hemodynamics closely - Transfuse PRBC's to keep HgB > 7g/dL - continue empiric broad spectrum antiinfective's per ID recommendations (de- escalate based on clinical and microbiologic data) - continue mobility protocols and off loading as tolerated for pressure ulcer prophylaxis - continue to avoid nephrotoxins, adjust all medications for GFR and CRCL - continue GI & VTE prophylaxis with - accuchecks with glycemic control per SSI for target BG of 140-180 mg/dl acutely - continue other care per attending / other consultants ... re-evaluate in am & prn CONDITION: CRITICAL PROGNOSIS: VERY GUARDED CODE STATUS: FULL CODE Discussed extensively with RT/RN and care team in ICU IDT rounds The high probability of a clinically significant, sudden or life threatening deterioration of the [respiratory, renal and Cardiac] system's' required my full and direct attention, intervention and personal management. The aggregate c ritical care time was 36 minutes. This time is in addition to time spent performing reported procedures but includes the following: [x] Data Review and interpretation [x] Patient assessment and monitoring of vital signs [x] Documentation [x] Medication orders and management Subjective Date of service: 04/01/19 Principal diagnosis: Septic Shock; Ac. hypoxemic resp failure; Renzo. PNA; Rhabdomyolysis; RUBEN Interval history: Patient is seen today for: Severe sepsis with shock; Acute hypoxemic respiratory failure; Aspiration pneumonia; Morbid obesity; Rhabdomyolysis; Acute kidney injury; Morbid obesity; Elevated serum transaminases/possible shock liver; Acute encephalopathy (Toxic/Met) Seen and examined at bedside; 24hour events reviewed; nursing and respiratory care staff consulted; no adverse overnight events reported to me; resting peacefully in bed; FiO2 back down to 40%; acidosis is persistent and mixed; did not tolerate tube feeds well and was with veryhigh residuals; No gross G.I. bleeding today and serum Hb holding Objective Vital Signs - 12hr 04/01/19 04/01/19 04/01/19 04:15 04:31 04:45 Temperature Pulse Rate 138 H 135 H 137 H Pulse Rate [ From Monitor] Respiratory 16 17 16 Rate Blood Pressure 126/58 112/55 112/55 O2 Sat by Pulse 100 93 92 Oximetry 04/01/19 04/01/19 04/01/19 04:53 05:00 05:15 Temperature Pulse Rate 144 H 142 H 131 H Pulse Rate [ From Monitor] Respiratory 16 18 Rate Blood Pressure 121/58 138/81 138/81 O2 Sat by Pulse 94 84 87 Oximetry 04/01/19 04/01/19 04/01/19 05:30 05:45 06:00 Temperature Pulse Rate 129 H 141 H 133 H Pulse Rate [ From Monitor] Respiratory 15 27 H 22 Rate Blood Pressure 116/55 116/55 123/54 O2 Sat by Pulse 91 93 100 Oximetry 04/01/19 04/01/19 04/01/19 06:15 06:30 06:45 Temperature Pulse Rate 140 H 127 H 128 H Pulse Rate [ From Monitor] Respiratory 21 33 H 18 Rate Blood Pressure 123/54 107/53 107/53 O2 Sat by Pulse 92 84 81 L Oximetry 04/01/19 04/01/19 04/01/19 07:00 07:15 07:30 Temperature Pulse Rate 148 H 142 H 126 H Pulse Rate [ From Monitor] Respiratory 24 22 19 Rate Blood Pressure 120/55 120/55 111/52 O2 Sat by Pulse 100 100 100 Oximetry 04/01/19 04/01/19 04/01/19 07:45 08:00 08:01 Temperature 99.7 F H Pulse Rate 143 H 137 H Pulse Rate [ 137 H From Monitor] Respiratory 20 21 21 Rate Blood Pressure 95/48 95/48 O2 Sat by Pulse 100 100 100 Oximetry 04/01/19 04/01/19 04/01/19 08:15 08:16 08:30 Temperature Pulse Rate 139 H 136 H 132 H Pulse Rate [ From Monitor] Respiratory 16 29 H Rate Blood Pressure 95/46 95/46 89/50 O2 Sat by Pulse 99 100 Oximetry 04/01/19 04/01/19 04/01/19 08:45 09:01 09:15 Temperature Pulse Rate 137 H 159 H 144 H Pulse Rate [ From Monitor] Respiratory 16 15 16 Rate Blood Pressure 89/50 105/54 108/54 O2 Sat by Pulse 100 100 100 Oximetry 04/01/19 04/01/19 04/01/19 09:23 09:31 09:45 Temperature Pulse Rate 158 H 155 H 137 H Pulse Rate [ From Monitor] Respiratory 19 16 Rate Blood Pressure 108/54 108/54 123/79 O2 Sat by Pulse 100 100 100 Oximetry 04/01/19 04/01/19 04/01/19 10:01 10:15 10:30 Temperature Pulse Rate 160 H 152 H 140 H Pulse Rate [ From Monitor] Respiratory 17 16 16 Rate Blood Pressure 109/47 109/47 98/46 O2 Sat by Pulse 100 100 100 Oximetry 04/01/19 04/01/19 04/01/19 10:45 11:00 11:15 Temperature Pulse Rate 84 86 87 Pulse Rate [ From Monitor] Respiratory 17 17 15 Rate Blood Pressure 101/50 96/45 92/47 O2 Sat by Pulse 100 100 100 Oximetry 04/01/19 04/01/19 04/01/19 11:30 11:45 12:00 Temperature 98 F Pulse Rate 85 85 85 Pulse Rate [ 85 From Monitor] Respiratory 16 17 17 Rate Blood Pressure 98/47 95/47 94/46 O2 Sat by Pulse 100 100 100 Oximetry 04/01/19 04/01/19 04/01/19 12:15 12:31 12:45 Temperature Pulse Rate 85 85 85 Pulse Rate [ From Monitor] Respiratory 16 17 16 Rate Blood Pressure 84/48 99/48 93/51 O2 Sat by Pulse 100 100 100 Oximetry 04/01/19 04/01/19 04/01/19 13:01 13:10 13:15 Temperature Pulse Rate 89 89 90 Pulse Rate [ From Monitor] Respiratory 14 16 Rate Blood Pressure 128/53 128/53 136/56 O2 Sat by Pulse 100 100 100 Oximetry 04/01/19 04/01/19 04/01/19 13:30 13:45 14:00 Temperature Pulse Rate 88 87 88 Pulse Rate [ From Monitor] Respiratory 19 15 16 Rate Blood Pressure 131/52 125/51 130/52 O2 Sat by Pulse 100 100 100 Oximetry 04/01/19 04/01/19 14:15 14:30 Temperature Pulse Rate 90 89 Pulse Rate [ From Monitor] Respiratory 18 16 Rate Blood Pressure 133/53 130/54 O2 Sat by Pulse 100 100 Oximetry Constitutional: no acute distress, other (middle aged morbidly obese CM, n ormocephalic with incresed respiratory effort on MVS) Eyes: icteric ENT: oropharynx moist, other (ETT 23-24 cm PEDRO, ulcers over his upper lip) Neck: supple, no lymphadenopathy, no JVD, other (large neck circumference) Effort: mildly labored Ascultation: Bilateral: diminished breath sounds, rales Percussion: Bilateral: not dull Cardiovascular: regular rate and rhythm, other ( S1,S2) Gastrointestinal: hypoactive bowel sounds, soft, non-tender, non-distended, other (obese) Integumentary: normal, other (blisters with some weeping over the extremities) Extremities: no cyanosis, pink and warm, pulses normal, no ischemia or petechiae Neurologic: normal mental status, non-focal exam (grossly), pupils equal and round, CN II-XII normal, other (obeys simple commands when SAT was done) Psychiatric: mood appropriate, affect normal CBC and BMP: 04/02/19 12:15 04/02/19 05:03 ABG, PT/INR, D-dimer: ABG POC ABG pH 7.283 (7.35-7.45) L 04/01/19 05:14 ABG pH 7.326 pH Units (7.350-7.450) L 03/26/19 04:30 POC ABG pCO2 53.4 (35-45) H 04/01/19 05:14 ABG pCO2 36.4 mm Hg 03/26/19 04:30 POC ABG pO2 241 (80-105) H 04/01/19 05:14 ABG pO2 137.4 mm Hg (80.0-90.0) H 03/26/19 04:30 POC ABG HCO3 25.3 (22-26 mml/L) 04/01/19 05:14 POC ABG Total CO2 27 (23-27mmol/L) 04/01/19 05:14 POC ABG O2 Sat 100 04/01/19 05:14 ABG O2 Saturation 98.6 % (95.0-99.0) 03/26/19 04:30 PT/INR, D-dimer PT 15.3 Sec. (12.2-14.9) H 03/29/19 11:48 INR 1.24 (0.87-1.13) H 03/29/19 11:48 D-Dimer 4845.98 ng/mlDDU (0-234) H 03/28/19 12:00 Abnormal lab findings: Abnormal Labs 03/16/19 03/16/19 03/16/19 15:32 16:03 16:05 WBC 27.0 H RBC 5.55 H Hgb 15.7 H Hct 47.1 H RDW Plt Count 75 L Lymph % (Auto) Lymph # Seg Neutrophils % Seg Neuts % (Manual) 85.0 H Lymphocytes % (Manual) 2.0 L Monocytes % (Manual) Nucleated RBC % Seg Neutrophils # Seg Neutrophils # Man 23.0 H Lymphocytes # (Manual) 0.5 L Monocytes # (Manual) PT INR D-Dimer Heparin Anti-Xa Level POC ABG pH ABG pH POC ABG pCO2 POC ABG pO2 ABG pO2 ABG HCO3 ABG O2 Saturation ABG Base Excess ABG Hemoglobin Oxyhemoglobin Sodium 127 L Potassium Chloride 87.8 L Carbon Dioxide 17 L BUN 49 H Creatinine 5.8 H Glucose 150 H POC Glucose 118 H Lactic Acid Calcium 6.6 L Phosphorus Magnesium 1.10 L Total Bilirubin Direct Bilirubin AST ALT Alkaline Phosphatase Total Creatine Kinase 00397 H CK-MB (CK-2) Troponin T C-Reactive Protein Total Protein Albumin Triglycerides LDL Cholesterol Direct HDL Cholesterol Free T4 PTH Intact Urine WBC (Auto) Urine Creatinine Salicylates Acetaminophen Crossmatch 03/16/19 03/16/19 03/16/19 16:59 17:05 17:05 WBC RBC Hgb Hct RDW Plt Count Lymph % (Auto) Lymph # Seg Neutrophils % Seg Neuts % (Manual) Lymphocytes % (Manual) Monocytes % (Manual) Nucleated RBC % Seg Neutrophils # Seg Neutrophils # Man Lymphocytes # (Manual) Monocytes # (Manual) PT INR D-Dimer Heparin Anti-Xa Level POC ABG pH 7.297 L ABG pH POC ABG pCO2 33.0 L POC ABG pO2 ABG pO2 ABG HCO3 ABG O2 Saturation ABG Base Excess ABG Hemoglobin Oxyhemoglobin Sodium Potassium Chloride Carbon Dioxide BUN Creatinine Glucose POC Glucose Lactic Acid Calcium Phosphorus Magnesium Total Bilirubin Direct Bilirubin AST ALT Alkaline Phosphatase Total Creatine Kinase 23055 H CK-MB (CK-2) 83.1 H Troponin T C-Reactive Protein Total Protein Albumin Triglycerides LDL Cholesterol Direct HDL Cholesterol Free T4 0.72 L PTH Intact Urine WBC (Auto) Urine Creatinine Salicylates Acetaminophen Crossmatch 03/16/19 03/16/19 03/16/19 17:05 17:05 17:05 WBC RBC Hgb Hct RDW Plt Count Lymph % (Auto) Lymph # Seg Neutrophils % Seg Neuts % (Manual) Lymphocytes % (Manual) Monocytes % (Manual) Nucleated RBC % Seg Neutrophils # Seg Neutrophils # Man Lymphocytes # (Manual) Monocytes # (Manual) PT INR D-Dimer Heparin Anti-Xa Level POC ABG pH ABG pH POC ABG pCO2 POC ABG pO2 ABG pO2 ABG HCO3 ABG O2 Saturation ABG Base Excess ABG Hemoglobin Oxyhemoglobin Sodium Potassium Chloride Carbon Dioxide BUN Creatinine Glucose POC Glucose Lactic Acid 5.10 H* Calcium Phosphorus Magnesium Total Bilirubin Direct Bilirubin AST ALT Alkaline Phosphatase Total Creatine Kinase CK-MB (CK-2) Troponin T C-Reactive Protein Total Protein Albumin Triglycerides LDL Cholesterol Direct HDL Cholesterol Free T4 PTH Intact Urine WBC (Auto) Urine Creatinine Salicylates < 0.3 L Acetaminophen < 5.0 L Crossmatch 03/16/19 03/16/19 03/16/19 17:05 17:05 20:35 WBC RBC Hgb Hct RDW Plt Count Lymph % (Auto) Lymph # Seg Neutrophils % Seg Neuts % (Manual) Lymphocytes % (Manual) Monocytes % (Manual) Nucleated RBC % Seg Neutrophils # Seg Neutrophils # Man Lymphocytes # (Manual) Monocytes # (Manual) PT 15.9 H INR 1.30 H D-Dimer Heparin Anti-Xa Level POC ABG pH ABG pH POC ABG pCO2 POC ABG pO2 ABG pO2 ABG HCO3 ABG O2 Saturation ABG Base Excess ABG Hemoglobin Oxyhemoglobin Sodium Potassium Chloride Carbon Dioxide BUN Creatinine Glucose POC Glucose Lactic Acid 3.30 H* Calcium Phosphorus Magnesium Total Bilirubin 6.20 H Direct Bilirubin 5.9 H AST 800 H ALT 120 H Alkaline Phosphatase Total Creatine Kinase CK-MB (CK-2) Troponin T C-Reactive Protein Total Protein 4.4 L Albumin 2.4 L Triglycerides LDL Cholesterol Direct HDL Cholesterol Free T4 PTH Intact Urine WBC (Auto) Urine Creatinine Salicylates Acetaminophen Crossmatch 03/16/19 03/16/19 03/16/19 21:45 22:32 Unknown WBC RBC Hgb Hct RDW Plt Count Lymph % (Auto) Lymph # Seg Neutrophils % Seg Neuts % (Manual) Lymphocytes % (Manual) Monocytes % (Manual) Nucleated RBC % Seg Neutrophils # Seg Neutrophils # Man Lymphocytes # (Manual) Monocytes # (Manual) PT INR D-Dimer Heparin Anti-Xa Level POC ABG pH ABG pH POC ABG pCO2 POC ABG pO2 ABG pO2 ABG HCO3 ABG O2 Saturation ABG Base Excess ABG Hemoglobin Oxyhemoglobin Sodium Potassium Chloride Carbon Dioxide BUN Creatinine Glucose POC Glucose Lactic Acid 3.30 H* 3.00 H* Calcium Phosphorus Magnesium Total Bilirubin Direct Bilirubin AST ALT Alkaline Phosphatase Total Creatine Kinase CK-MB (CK-2) Troponin T 0.047 H D C-Reactive Protein Total Protein Albumin Triglycerides 395 H LDL Cholesterol Direct 10 L HDL Cholesterol 7 L Free T4 PTH Intact Urine WBC (Auto) Urine Creatinine Salicylates Acetaminophen Crossmatch 03/17/19 03/17/19 03/17/19 03:45 03:45 03:45 WBC RBC Hgb Hct RDW Plt Count Lymph % (Auto) Lymph # Seg Neutrophils % Seg Neuts % (Manual) Lymphocytes % (Manual) Monocytes % (Manual) Nucleated RBC % Seg Neutrophils # Seg Neutrophils # Man Lymphocytes # (Manual) Monocytes # (Manual) PT INR D-Dimer Heparin Anti-Xa Level POC ABG pH ABG pH POC ABG pCO2 POC ABG pO2 ABG pO2 ABG HCO3 ABG O2 Saturation ABG Base Excess ABG Hemoglobin Oxyhemoglobin Sodium 131 L Potassium Chloride 88.9 L Carbon Dioxide BUN 53 H Creatinine 7.1 H Glucose POC Glucose Lactic Acid 4.10 H* Calcium 5.4 L* D Phosphorus 7.30 H Magnesium 1.60 L Total Bilirubin 5.90 H Direct Bilirubin AST 801 H ALT 109 H Alkaline Phosphatase Total Creatine Kinase 53256 H 65781 H CK-MB (CK-2) 41.5 H Troponin T 0.054 H C-Reactive Protein Total Protein 4.5 L Albumin 2.0 L Triglycerides LDL Cholesterol Direct HDL Cholesterol Free T4 PTH Intact Urine WBC (Auto) Urine Creatinine Salicylates Acetaminophen Crossmatch 03/17/19 03/17/19 03/17/19 05:47 07:16 07:16 WBC RBC Hgb Hct RDW Plt Count Lymph % (Auto) Lymph # Seg Neutrophils % Seg Neuts % (Manual) Lymphocytes % (Manual) Monocytes % (Manual) Nucleated RBC % Seg Neutrophils # Seg Neutrophils # Man Lymphocytes # (Manual) Monocytes # (Manual) PT INR D-Dimer Heparin Anti-Xa Level POC ABG pH 7.193 L ABG pH POC ABG pCO2 45.2 H POC ABG pO2 65 L ABG pO2 ABG HCO3 ABG O2 Saturation ABG Base Excess ABG Hemoglobin Oxyhemoglobin Sodium Potassium Chloride Carbon Dioxide BUN Creatinine Glucose POC Glucose Lactic Acid 5.50 H* Calcium Phosphorus Magnesium Total Bilirubin Direct Bilirubin AST ALT Alkaline Phosphatase Total Creatine Kinase 80911 H CK-MB (CK-2) 54.3 H Troponin T 0.058 H C-Reactive Protein Total Protein Albumin Triglycerides LDL Cholesterol Direct HDL Cholesterol Free T4 PTH Intact Urine WBC (Auto) Urine Creatinine Salicylates Acetaminophen Crossmatch 03/17/19 03/17/19 03/17/19 11:52 12:51 13:01 WBC RBC Hgb Hct RDW Plt Count Lymph % (Auto) Lymph # Seg Neutrophils % Seg Neuts % (Manual) Lymphocytes % (Manual) Monocytes % (Manual) Nucleated RBC % Seg Neutrophils # Seg Neutrophils # Man Lymphocytes # (Manual) Monocytes # (Manual) PT INR D-Dimer Heparin Anti-Xa Level POC ABG pH 7.154 L ABG pH POC ABG pCO2 34.3 L POC ABG pO2 73 L ABG pO2 ABG HCO3 ABG O2 Saturation ABG Base Excess ABG Hemoglobin Oxyhemoglobin Sodium Potassium Chloride Carbon Dioxide BUN Creatinine Glucose POC Glucose 60 L Lactic Acid 8.20 H* Calcium Phosphorus Magnesium Total Bilirubin Direct Bilirubin AST ALT Alkaline Phosphatase Total Creatine Kinase CK-MB (CK-2) Troponin T C-Reactive Protein Total Protein Albumin Triglycerides LDL Cholesterol Direct HDL Cholesterol Free T4 PTH Intact Urine WBC (Auto) Urine Creatinine Salicylates Acetaminophen Crossmatch 0903/17/19 03/17/19 14:37 14:37 14:37 WBC 29.3 H RBC Hgb Hct RDW 15.8 H Plt Count 45 L Lymph % (Auto) Lymph # Seg Neutrophils % Seg Neuts % (Manual) 81.0 H Lymphocytes % (Manual) 1.0 L Monocytes % (Manual) 15.0 H Nucleated RBC % Seg Neutrophils # Seg Neutrophils # Man 23.7 H Lymphocytes # (Manual) 0.3 L Monocytes # (Manual) 4.4 H PT INR D-Dimer Heparin Anti-Xa Level POC ABG pH ABG pH POC ABG pCO2 POC ABG pO2 ABG pO2 ABG HCO3 ABG O2 Saturation ABG Base Excess ABG Hemoglobin Oxyhemoglobin Sodium Potassium Chloride Carbon Dioxide BUN Creatinine Glucose POC Glucose Lactic Acid 4.90 H* Calcium Phosphorus Magnesium Total Bilirubin Direct Bilirubin AST ALT Alkaline Phosphatase Total Creatine Kinase CK-MB (CK-2) Troponin T C-Reactive Protein 24.90 H Total Protein Albumin Triglycerides LDL Cholesterol Direct HDL Cholesterol Free T4 PTH Intact Urine WBC (Auto) Urine Creatinine Salicylates Acetaminophen Crossmatch 03/17/19 03/17/19 03/17/19 16:05 16:05 17:02 WBC RBC Hgb Hct RDW Plt Count Lymph % (Auto) Lymph # Seg Neutrophils % Seg Neuts % (Manual) Lymphocytes % (Manual) Monocytes % (Manual) Nucleated RBC % Seg Neutrophils # Seg Neutrophils # Man Lymphocytes # (Manual) Monocytes # (Manual) PT INR D-Dimer Heparin Anti-Xa Level POC ABG pH 7.183 L ABG pH POC ABG pCO2 POC ABG pO2 65 L ABG pO2 ABG HCO3 ABG O2 Saturation ABG Base Excess ABG Hemoglobin Oxyhemoglobin Sodium Potassium Chloride Carbon Dioxide BUN Creatinine Glucose POC Glucose Lactic Acid Calcium Phosphorus Magnesium Total Bilirubin Direct Bilirubin AST ALT Alkaline Phosphatase Total Creatine Kinase CK-MB (CK-2) Troponin T C-Reactive Protein Total Protein Albumin Triglycerides LDL Cholesterol Direct HDL Cholesterol Free T4 PTH Intact Urine WBC (Auto) 30.0 H Urine Creatinine 106.6 H Salicylates Acetaminophen Crossmatch 03/18/19 03/18/19 03/18/19 05:12 05:16 05:53 WBC RBC Hgb Hct RDW Plt Count Lymph % (Auto) Lymph # Seg Neutrophils % Seg Neuts % (Manual) Lymphocytes % (Manual) Monocytes % (Manual) Nucleated RBC % Seg Neutrophils # Seg Neutrophils # Man Lymphocytes # (Manual) Monocytes # (Manual) PT INR D-Dimer Heparin Anti-Xa Level POC ABG pH 7.257 L ABG pH POC ABG pCO2 31.6 L POC ABG pO2 69 L ABG pO2 ABG HCO3 ABG O2 Saturation ABG Base Excess ABG Hemoglobin Oxyhemoglobin Sodium Potassium Chloride Carbon Dioxide BUN Creatinine Glucose POC Glucose 141 H Lactic Acid 5.00 H* Calcium Phosphorus Magnesium Total Bilirubin Direct Bilirubin AST ALT Alkaline Phosphatase Total Creatine Kinase CK-MB (CK-2) Troponin T C-Reactive Protein Total Protein Albumin Triglycerides LDL Cholesterol Direct HDL Cholesterol Free T4 PTH Intact Urine WBC (Auto) Urine Creatinine Salicylates Acetaminophen Crossmatch 03/18/19 03/18/19 03/18/19 06:57 08:40 08:40 WBC 31.7 H RBC Hgb Hct RDW 15.5 H Plt Count 35 L Lymph % (Auto) Lymph # Seg Neutrophils % Seg Neuts % (Manual) Lymphocytes % (Manual) Monocytes % (Manual) Nucleated RBC % Seg Neutrophils # Seg Neutrophils # Man Lymphocytes # (Manual) Monocytes # (Manual) PT INR D-Dimer Heparin Anti-Xa Level POC ABG pH ABG pH POC ABG pCO2 POC ABG pO2 ABG pO2 ABG HCO3 ABG O2 Saturation ABG Base Excess ABG Hemoglobin Oxyhemoglobin Sodium 132 L Potassium 5.5 H D Chloride 88.5 L Carbon Dioxide 18 L BUN 71 H Creatinine 8.1 H Glucose 205 H POC Glucose Lactic Acid 5.00 H* Calcium 4.1 L* D Phosphorus Magnesium 2.40 H Total Bilirubin 7.50 H Direct Bilirubin AST 1088 H ALT 159 H Alkaline Phosphatase 190 H Total Creatine Kinase 997318 H CK-MB (CK-2) Troponin T C-Reactive Protein Total Protein 4.7 L Albumin 1.8 L Triglycerides LDL Cholesterol Direct HDL Cholesterol Free T4 PTH Intact Urine WBC (Auto) Urine Creatinine Salicylates Acetaminophen Crossmatch 03/18/19 03/18/19 03/18/19 12:33 12:50 13:19 WBC RBC Hgb Hct RDW Plt Count Lymph % (Auto) Lymph # Seg Neutrophils % Seg Neuts % (Manual) Lymphocytes % (Manual) Monocytes % (Manual) Nucleated RBC % Seg Neutrophils # Seg Neutrophils # Man Lymphocytes # (Manual) Monocytes # (Manual) PT INR D-Dimer Heparin Anti-Xa Level POC ABG pH 7.282 L ABG pH POC ABG pCO2 POC ABG pO2 67 L ABG pO2 ABG HCO3 ABG O2 Saturation ABG Base Excess ABG Hemoglobin Oxyhemoglobin Sodium Potassium Chloride Carbon Dioxide BUN Creatinine Glucose POC Glucose 129 H Lactic Acid 3.30 H* Calcium Phosphorus Magnesium Total Bilirubin Direct Bilirubin AST ALT Alkaline Phosphatase Total Creatine Kinase CK-MB (CK-2) Troponin T C-Reactive Protein Total Protein Albumin Triglycerides LDL Cholesterol Direct HDL Cholesterol Free T4 PTH Intact Urine WBC (Auto) Urine Creatinine Salicylates Acetaminophen Crossmatch 03/18/19 03/18/19 03/18/19 13:19 16:50 18:11 WBC RBC Hgb Hct RDW Plt Count Lymph % (Auto) Lymph # Seg Neutrophils % Seg Neuts % (Manual) Lymphocytes % (Manual) Monocytes % (Manual) Nucleated RBC % Seg Neutrophils # Seg Neutrophils # Man Lymphocytes # (Manual) Monocytes # (Manual) PT INR D-Dimer Heparin Anti-Xa Level POC ABG pH ABG pH POC ABG pCO2 POC ABG pO2 59 L ABG pO2 ABG HCO3 ABG O2 Saturation ABG Base Excess ABG Hemoglobin Oxyhemoglobin Sodium Potassium Chloride Carbon Dioxide BUN Creatinine Glucose POC Glucose 151 H Lactic Acid Calcium 4.2 L* Phosphorus Magnesium Total Bilirubin Direct Bilirubin AST ALT Alkaline Phosphatase Total Creatine Kinase 597139 H CK-MB (CK-2) Troponin T C-Reactive Protein Total Protein Albumin Triglycerides LDL Cholesterol Direct HDL Cholesterol Free T4 PTH Intact Urine WBC (Auto) Urine Creatinine Salicylates Acetaminophen Crossmatch 03/18/19 03/18/19 03/19/19 18:20 23:39 01:42 WBC RBC Hgb Hct RDW Plt Count Lymph % (Auto) Lymph # Seg Neutrophils % Seg Neuts % (Manual) Lymphocytes % (Manual) Monocytes % (Manual) Nucleated RBC % Seg Neutrophils # Seg Neutrophils # Man Lymphocytes # (Manual) Monocytes # (Manual) PT INR D-Dimer Heparin Anti-Xa Level POC ABG pH 7.345 L ABG pH 7.285 L POC ABG pCO2 POC ABG pO2 59 L ABG pO2 44.0 L ABG HCO3 ABG O2 Saturation 70.9 L ABG Base Excess -5.7 L ABG Hemoglobin 11.9 L Oxyhemoglobin 69.6 L Sodium Potassium Chloride Carbon Dioxide BUN Creatinine Glucose POC Glucose 152 H Lactic Acid Calcium Phosphorus Magnesium Total Bilirubin Direct Bilirubin AST ALT Alkaline Phosphatase Total Creatine Kinase CK-MB (CK-2) Troponin T C-Reactive Protein Total Protein Albumin Triglycerides LDL Cholesterol Direct HDL Cholesterol Free T4 PTH Intact Urine WBC (Auto) Urine Creatinine Salicylates Acetaminophen Crossmatch 03/19/19 03/19/19 03/19/19 04:00 04:00 05:35 WBC 36.5 H RBC Hgb Hct RDW 15.8 H Plt Count 35 L Lymph % (Auto) Lymph # Seg Neutrophils % Seg Neuts % (Manual) Lymphocytes % (Manual) Monocytes % (Manual) Nucleated RBC % Seg Neutrophils # Seg Neutrophils # Man Lymphocytes # (Manual) Monocytes # (Manual) PT INR D-Dimer Heparin Anti-Xa Level POC ABG pH ABG pH 7.265 L POC ABG pCO2 POC ABG pO2 ABG pO2 35.4 L* ABG HCO3 ABG O2 Saturation 54.4 L ABG Base Excess -6.7 L ABG Hemoglobin 12.9 L Oxyhemoglobin 53.4 L Sodium 132 L Potassium 5.7 H Chloride 89.8 L Carbon Dioxide 19 L BUN 62 H Creatinine 6.4 H Glucose 151 H POC Glucose Lactic Acid Calcium 5.2 L* D Phosphorus Magnesium Total Bilirubin 7.80 H Direct Bilirubin AST 682 H ALT 130 H Alkaline Phosphatase 167 H Total Creatine Kinase CK-MB (CK-2) Troponin T C-Reactive Protein Total Protein 4.8 L Albumin 2.3 L Triglycerides LDL Cholesterol Direct HDL Cholesterol Free T4 PTH Intact Urine WBC (Auto) Urine Creatinine Salicylates Acetaminophen Crossmatch 03/19/19 03/19/19 03/19/19 05:49 09:16 09:50 WBC RBC Hgb Hct RDW Plt Count Lymph % (Auto) Lymph # Seg Neutrophils % Seg Neuts % (Manual) Lymphocytes % (Manual) Monocytes % (Manual) Nucleated RBC % Seg Neutrophils # Seg Neutrophils # Man Lymphocytes # (Manual) Monocytes # (Manual) PT INR D-Dimer Heparin Anti-Xa Level POC ABG pH 7.222 L ABG pH POC ABG pCO2 56.6 H POC ABG pO2 ABG pO2 ABG HCO3 ABG O2 Saturation ABG Base Excess ABG Hemoglobin Oxyhemoglobin Sodium Potassium Chloride Carbon Dioxide BUN Creatinine Glucose POC Glucose 154 H Lactic Acid 2.70 H* Calcium Phosphorus Magnesium Total Bilirubin Direct Bilirubin AST ALT Alkaline Phosphatase Total Creatine Kinase CK-MB (CK-2) Troponin T C-Reactive Protein Total Protein Albumin Triglycerides LDL Cholesterol Direct HDL Cholesterol Free T4 PTH Intact Urine WBC (Auto) Urine Creatinine Salicylates Acetaminophen Crossmatch 03/19/19 03/19/19 03/19/19 09:50 11:28 17:58 WBC RBC Hgb Hct RDW Plt Count Lymph % (Auto) Lymph # Seg Neutrophils % Seg Neuts % (Manual) Lymphocytes % (Manual) Monocytes % (Manual) Nucleated RBC % Seg Neutrophils # Seg Neutrophils # Man Lymphocytes # (Manual) Monocytes # (Manual) PT INR D-Dimer Heparin Anti-Xa Level POC ABG pH 7.250 L ABG pH POC ABG pCO2 52.6 H POC ABG pO2 ABG pO2 ABG HCO3 ABG O2 Saturation ABG Base Excess ABG Hemoglobin Oxyhemoglobin Sodium Potassium Chloride Carbon Dioxide BUN Creatinine Glucose POC Glucose 160 H Lactic Acid Calcium Phosphorus Magnesium Total Bilirubin Direct Bilirubin AST ALT Alkaline Phosphatase Total Creatine Kinase 41395 H CK-MB (CK-2) Troponin T C-Reactive Protein Total Protein Albumin Triglycerides LDL Cholesterol Direct HDL Cholesterol Free T4 PTH Intact Urine WBC (Auto) Urine Creatinine Salicylates Acetaminophen Crossmatch 03/19/19 03/19/19 03/20/19 19:48 21:03 02:16 WBC RBC Hgb Hct RDW Plt Count Lymph % (Auto) Lymph # Seg Neutrophils % Seg Neuts % (Manual) Lymphocytes % (Manual) Monocytes % (Manual) Nucleated RBC % Seg Neutrophils # Seg Neutrophils # Man Lymphocytes # (Manual) Monocytes # (Manual) PT INR D-Dimer Heparin Anti-Xa Level POC ABG pH 7.279 L ABG pH POC ABG pCO2 50.3 H POC ABG pO2 129 H ABG pO2 ABG HCO3 ABG O2 Saturation ABG Base Excess ABG Hemoglobin Oxyhemoglobin Sodium Potassium Chloride Carbon Dioxide BUN Creatinine Glucose POC Glucose 119 H 119 H Lactic Acid Calcium Phosphorus Magnesium Total Bilirubin Direct Bilirubin AST ALT Alkaline Phosphatase Total Creatine Kinase CK-MB (CK-2) Troponin T C-Reactive Protein Total Protein Albumin Triglycerides LDL Cholesterol Direct HDL Cholesterol Free T4 PTH Intact Urine WBC (Auto) Urine Creatinine Salicylates Acetaminophen Crossmatch 03/20/19 03/20/19 03/20/19 04:23 05:05 09:30 WBC 36.3 H RBC Hgb Hct RDW 15.5 H Plt Count 29 L Lymph % (Auto) Lymph # Seg Neutrophils % Seg Neuts % (Manual) Lymphocytes % (Manual) Monocytes % (Manual) Nucleated RBC % Seg Neutrophils # Seg Neutrophils # Man Lymphocytes # (Manual) Monocytes # (Manual) PT INR D-Dimer Heparin Anti-Xa Level POC ABG pH ABG pH POC ABG pCO2 POC ABG pO2 280 H ABG pO2 ABG HCO3 ABG O2 Saturation ABG Base Excess ABG Hemoglobin Oxyhemoglobin Sodium Potassium Chloride Carbon Dioxide BUN Creatinine Glucose POC Glucose 115 H Lactic Acid Calcium Phosphorus Magnesium Total Bilirubin Direct Bilirubin AST ALT Alkaline Phosphatase Total Creatine Kinase CK-MB (CK-2) Troponin T C-Reactive Protein Total Protein Albumin Triglycerides LDL Cholesterol Direct HDL Cholesterol Free T4 PTH Intact Urine WBC (Auto) Urine Creatinine Salicylates Acetaminophen Crossmatch 03/20/19 03/20/19 03/20/19 09:30 09:30 11:34 WBC RBC Hgb Hct RDW Plt Count Lymph % (Auto) Lymph # Seg Neutrophils % Seg Neuts % (Manual) Lymphocytes % (Manual) Monocytes % (Manual) Nucleated RBC % Seg Neutrophils # Seg Neutrophils # Man Lymphocytes # (Manual) Monocytes # (Manual) PT INR D-Dimer Heparin Anti-Xa Level POC ABG pH ABG pH POC ABG pCO2 POC ABG pO2 ABG pO2 ABG HCO3 ABG O2 Saturation ABG Base Excess ABG Hemoglobin Oxyhemoglobin Sodium 131 L Potassium Chloride 92.3 L Carbon Dioxide 20 L BUN 68 H Creatinine 6.1 H Glucose 164 H POC Glucose 141 H Lactic Acid Calcium 5.3 L* Phosphorus Magnesium Total Bilirubin 9.50 H Direct Bilirubin AST 381 H ALT 116 H Alkaline Phosphatase 255 H Total Creatine Kinase 53496 H CK-MB (CK-2) Troponin T C-Reactive Protein Total Protein 5.1 L Albumin 2.3 L Triglycerides LDL Cholesterol Direct HDL Cholesterol Free T4 PTH Intact Urine WBC (Auto) Urine Creatinine Salicylates Acetaminophen Crossmatch 03/20/19 03/20/19 03/20/19 14:41 14:45 18:50 WBC RBC Hgb Hct RDW Plt Count Lymph % (Auto) Lymph # Seg Neutrophils % Seg Neuts % (Manual) Lymphocytes % (Manual) Monocytes % (Manual) Nucleated RBC % Seg Neutrophils # Seg Neutrophils # Man Lymphocytes # (Manual) Monocytes # (Manual) PT INR D-Dimer Heparin Anti-Xa Level POC ABG pH ABG pH POC ABG pCO2 POC ABG pO2 ABG pO2 ABG HCO3 ABG O2 Saturation ABG Base Excess ABG Hemoglobin Oxyhemoglobin Sodium Potassium Chloride Carbon Dioxide BUN Creatinine Glucose POC Glucose 117 H Lactic Acid 2.90 H* Calcium Phosphorus Magnesium Total Bilirubin Direct Bilirubin AST ALT Alkaline Phosphatase Total Creatine Kinase CK-MB (CK-2) Troponin T C-Reactive Protein 13.30 H Total Protein Albumin Triglycerides LDL Cholesterol Direct HDL Cholesterol Free T4 PTH Intact Urine WBC (Auto) Urine Creatinine Salicylates Acetaminophen Crossmatch 03/20/19 03/21/19 03/21/19 21:55 04:26 04:26 WBC 37.8 H RBC Hgb Hct RDW 15.4 H Plt Count 36 L Lymph % (Auto) Lymph # Seg Neutrophils % Seg Neuts % (Manual) 93.0 H Lymphocytes % (Manual) 3.0 L Monocytes % (Manual) Nucleated RBC % 1.0 H Seg Neutrophils # 34.6 H Seg Neutrophils # Man 35.2 H Lymphocytes # (Manual) 1.1 L Monocytes # (Manual) PT INR D-Dimer Heparin Anti-Xa Level POC ABG pH ABG pH POC ABG pCO2 POC ABG pO2 ABG pO2 ABG HCO3 ABG O2 Saturation ABG Base Excess ABG Hemoglobin Oxyhemoglobin Sodium 131 L Potassium Chloride 90.7 L Carbon Dioxide 21 L BUN 69 H Creatinine 5.7 H Glucose 170 H POC Glucose 128 H Lactic Acid Calcium 6.1 L D Phosphorus Magnesium Total Bilirubin 9.50 H Direct Bilirubin AST 308 H ALT 124 H Alkaline Phosphatase 327 H Total Creatine Kinase 38693 H CK-MB (CK-2) Troponin T C-Reactive Protein Total Protein 5.7 L Albumin 2.6 L Triglycerides LDL Cholesterol Direct HDL Cholesterol Free T4 PTH Intact Urine WBC (Auto) Urine Creatinine Salicylates Acetaminophen Crossmatch 03/21/19 03/21/19 03/21/19 05:17 05:39 08:29 WBC RBC Hgb Hct RDW Plt Count Lymph % (Auto) Lymph # Seg Neutrophils % Seg Neuts % (Manual) Lymphocytes % (Manual) Monocytes % (Manual) Nucleated RBC % Seg Neutrophils # Seg Neutrophils # Man Lymphocytes # (Manual) Monocytes # (Manual) PT INR D-Dimer Heparin Anti-Xa Level POC ABG pH ABG pH POC ABG pCO2 POC ABG pO2 209 H ABG pO2 ABG HCO3 ABG O2 Saturation ABG Base Excess ABG Hemoglobin Oxyhemoglobin Sodium Potassium Chloride Carbon Dioxide BUN Creatinine Glucose POC Glucose 145 H Lactic Acid Calcium Phosphorus Magnesium Total Bilirubin Direct Bilirubin AST ALT Alkaline Phosphatase Total Creatine Kinase 06196 H CK-MB (CK-2) Troponin T C-Reactive Protein Total Protein Albumin Triglycerides LDL Cholesterol Direct HDL Cholesterol Free T4 PTH Intact Urine WBC (Auto) Urine Creatinine Salicylates Acetaminophen Crossmatch 03/21/19 03/21/19 03/21/19 08:29 11:43 12:00 WBC RBC Hgb Hct RDW Plt Count Lymph % (Auto) Lymph # Seg Neutrophils % Seg Neuts % (Manual) Lymphocytes % (Manual) Monocytes % (Manual) Nucleated RBC % Seg Neutrophils # Seg Neutrophils # Man Lymphocytes # (Manual) Monocytes # (Manual) PT INR D-Dimer Heparin Anti-Xa Level POC ABG pH ABG pH POC ABG pCO2 POC ABG pO2 ABG pO2 ABG HCO3 ABG O2 Saturation ABG Base Excess ABG Hemoglobin Oxyhemoglobin Sodium Potassium Chloride Carbon Dioxide BUN Creatinine Glucose POC Glucose 123 H Lactic Acid 2.60 H* 2.20 H* Calcium Phosphorus Magnesium Total Bilirubin Direct Bilirubin AST ALT Alkaline Phosphatase Total Creatine Kinase CK-MB (CK-2) Troponin T C-Reactive Protein Total Protein Albumin Triglycerides LDL Cholesterol Direct HDL Cholesterol Free T4 PTH Intact Urine WBC (Auto) Urine Creatinine Salicylates Acetaminophen Crossmatch 03/21/19 03/21/19 03/21/19 14:11 18:28 19:32 WBC RBC Hgb Hct RDW Plt Count Lymph % (Auto) Lymph # Seg Neutrophils % Seg Neuts % (Manual) Lymphocytes % (Manual) Monocytes % (Manual) Nucleated RBC % Seg Neutrophils # Seg Neutrophils # Man Lymphocytes # (Manual) Monocytes # (Manual) PT INR D-Dimer Heparin Anti-Xa Level POC ABG pH 7.293 L ABG pH POC ABG pCO2 POC ABG pO2 ABG pO2 ABG HCO3 ABG O2 Saturation ABG Base Excess ABG Hemoglobin Oxyhemoglobin Sodium Potassium Chloride Carbon Dioxide BUN Creatinine Glucose POC Glucose 153 H Lactic Acid 2.10 H* Calcium Phosphorus Magnesium Total Bilirubin Direct Bilirubin AST ALT Alkaline Phosphatase Total Creatine Kinase CK-MB (CK-2) Troponin T C-Reactive Protein Total Protein Albumin Triglycerides LDL Cholesterol Direct HDL Cholesterol Free T4 PTH Intact Urine WBC (Auto) Urine Creatinine Salicylates Acetaminophen Crossmatch 03/21/19 03/22/19 03/22/19 23:38 05:08 05:51 WBC RBC Hgb Hct RDW Plt Count Lymph % (Auto) Lymph # Seg Neutrophils % Seg Neuts % (Manual) Lymphocytes % (Manual) Monocytes % (Manual) Nucleated RBC % Seg Neutrophils # Seg Neutrophils # Man Lymphocytes # (Manual) Monocytes # (Manual) PT INR D-Dimer Heparin Anti-Xa Level POC ABG pH 7.283 L ABG pH POC ABG pCO2 POC ABG pO2 53 L ABG pO2 ABG HCO3 ABG O2 Saturation ABG Base Excess ABG Hemoglobin Oxyhemoglobin Sodium Potassium Chloride Carbon Dioxide BUN Creatinine Glucose POC Glucose 149 H 131 H Lactic Acid Calcium Phosphorus Magnesium Total Bilirubin Direct Bilirubin AST ALT Alkaline Phosphatase Total Creatine Kinase CK-MB (CK-2) Troponin T C-Reactive Protein Total Protein Albumin Triglycerides LDL Cholesterol Direct HDL Cholesterol Free T4 PTH Intact Urine WBC (Auto) Urine Creatinine Salicylates Acetaminophen Crossmatch 03/22/19 03/22/19 03/22/19 08:00 08:00 18:19 WBC 36.7 H RBC Hgb 11.0 L Hct 33.5 L RDW 15.5 H Plt Count 43 L Lymph % (Auto) Lymph # Seg Neutrophils % Seg Neuts % (Manual) 87.0 H Lymphocytes % (Manual) 7.0 L Monocytes % (Manual) Nucleated RBC % Seg Neutrophils # Seg Neutrophils # Man 31.9 H Lymphocytes # (Manual) Monocytes # (Manual) PT INR D-Dimer Heparin Anti-Xa Level POC ABG pH ABG pH POC ABG pCO2 46.4 H POC ABG pO2 108 H ABG pO2 ABG HCO3 ABG O2 Saturation ABG Base Excess ABG Hemoglobin Oxyhemoglobin Sodium 132 L Potassium 5.6 H Chloride 89.6 L Carbon Dioxide 20 L BUN 101 H Creatinine 7.4 H Glucose 124 H POC Glucose Lactic Acid Calcium 5.2 L* Phosphorus Magnesium Total Bilirubin 2.80 H Direct Bilirubin AST 119 H ALT 86 H Alkaline Phosphatase 245 H Total Creatine Kinase CK-MB (CK-2) Troponin T C-Reactive Protein Total Protein 5.6 L Albumin 2.5 L Triglycerides LDL Cholesterol Direct HDL Cholesterol Free T4 PTH Intact Urine WBC (Auto) Urine Creatinine Salicylates Acetaminophen Crossmatch 03/22/19 03/23/19 03/23/19 20:37 04:49 05:28 WBC 35.9 H RBC Hgb 10.8 L Hct 33.2 L RDW 15.5 H Plt Count 49 L Lymph % (Auto) Lymph # Seg Neutrophils % Seg Neuts % (Manual) 81.0 H Lymphocytes % (Manual) 3.5 L Monocytes % (Manual) Nucleated RBC % Seg Neutrophils # Seg Neutrophils # Man 29.1 H Lymphocytes # (Manual) Monocytes # (Manual) 1.4 H PT INR D-Dimer Heparin Anti-Xa Level POC ABG pH 7.296 L ABG pH POC ABG pCO2 46.2 H POC ABG pO2 ABG pO2 ABG HCO3 ABG O2 Saturation ABG Base Excess ABG Hemoglobin Oxyhemoglobin Sodium 129 L Potassium 5.2 H Chloride 91.1 L Carbon Dioxide BUN 91 H Creatinine 6.6 H Glucose 190 H POC Glucose Lactic Acid Calcium 5.3 L* Phosphorus Magnesium Total Bilirubin 1.80 H Direct Bilirubin AST 80 H ALT 62 H Alkaline Phosphatase 209 H Total Creatine Kinase 9758 H CK-MB (CK-2) Troponin T C-Reactive Protein Total Protein 5.2 L Albumin 2.2 L Triglycerides LDL Cholesterol Direct HDL Cholesterol Free T4 PTH Intact Urine WBC (Auto) Urine Creatinine Salicylates Acetaminophen Crossmatch 03/23/19 03/23/19 03/23/19 05:28 05:31 11:33 WBC 29.7 H RBC 3.59 L Hgb 10.1 L Hct 31.1 L RDW 15.4 H Plt Count 47 L Lymph % (Auto) Lymph # Seg Neutrophils % Seg Neuts % (Manual) 89.0 H Lymphocytes % (Manual) 6.0 L Monocytes % (Manual) Nucleated RBC % 1.0 H Seg Neutrophils # Seg Neutrophils # Man 26.4 H Lymphocytes # (Manual) Monocytes # (Manual) PT INR D-Dimer Heparin Anti-Xa Level POC ABG pH ABG pH POC ABG pCO2 POC ABG pO2 ABG pO2 ABG HCO3 ABG O2 Saturation ABG Base Excess ABG Hemoglobin Oxyhemoglobin Sodium Potassium Chloride Carbon Dioxide BUN Creatinine Glucose POC Glucose 122 H 113 H Lactic Acid Calcium Phosphorus Magnesium Total Bilirubin Direct Bilirubin AST ALT Alkaline Phosphatase Total Creatine Kinase CK-MB (CK-2) Troponin T C-Reactive Protein Total Protein Albumin Triglycerides LDL Cholesterol Direct HDL Cholesterol Free T4 PTH Intact Urine WBC (Auto) Urine Creatinine Salicylates Acetaminophen Crossmatch 03/23/19 03/24/19 03/24/19 17:47 00:00 04:50 WBC 35.0 H RBC Hgb 10.4 L Hct 32.4 L RDW Plt Count 60 L Lymph % (Auto) Lymph # Seg Neutrophils % Seg Neuts % (Manual) 93.0 H Lymphocytes % (Manual) 5.0 L Monocytes % (Manual) Nucleated RBC % 7.0 H Seg Neutrophils # Seg Neutrophils # Man 32.6 H Lymphocytes # (Manual) Monocytes # (Manual) PT INR D-Dimer Heparin Anti-Xa Level POC ABG pH ABG pH POC ABG pCO2 POC ABG pO2 ABG pO2 ABG HCO3 ABG O2 Saturation ABG Base Excess ABG Hemoglobin Oxyhemoglobin Sodium Potassium Chloride Carbon Dioxide BUN Creatinine Glucose POC Glucose 111 H 108 H Lactic Acid Calcium Phosphorus Magnesium Total Bilirubin Direct Bilirubin AST ALT Alkaline Phosphatase Total Creatine Kinase CK-MB (CK-2) Troponin T C-Reactive Protein Total Protein Albumin Triglycerides LDL Cholesterol Direct HDL Cholesterol Free T4 PTH Intact Urine WBC (Auto) Urine Creatinine Salicylates Acetaminophen Crossmatch 03/24/19 03/24/19 03/24/19 04:50 05:06 12:55 WBC RBC Hgb Hct RDW Plt Count Lymph % (Auto) Lymph # Seg Neutrophils % Seg Neuts % (Manual) Lymphocytes % (Manual) Monocytes % (Manual) Nucleated RBC % Seg Neutrophils # Seg Neutrophils # Man Lymphocytes # (Manual) Monocytes # (Manual) PT INR D-Dimer Heparin Anti-Xa Level POC ABG pH ABG pH POC ABG pCO2 POC ABG pO2 ABG pO2 ABG HCO3 ABG O2 Saturation ABG Base Excess ABG Hemoglobin Oxyhemoglobin Sodium 134 L Potassium 5.1 H Chloride 95.3 L Carbon Dioxide 21 L BUN 85 H Creatinine 6.4 H Glucose 109 H POC Glucose 112 H 110 H Lactic Acid Calcium 5.8 L* Phosphorus Magnesium Total Bilirubin Direct Bilirubin AST ALT Alkaline Phosphatase Total Creatine Kinase 5747 H CK-MB (CK-2) Troponin T C-Reactive Protein Total Protein Albumin Triglycerides LDL Cholesterol Direct HDL Cholesterol Free T4 PTH Intact Urine WBC (Auto) Urine Creatinine Salicylates Acetaminophen Crossmatch 03/24/19 03/25/19 03/25/19 23:29 05:00 05:00 WBC RBC Hgb Hct RDW Plt Count Lymph % (Auto) Lymph # Seg Neutrophils % Seg Neuts % (Manual) Lymphocytes % (Manual) Monocytes % (Manual) Nucleated RBC % Seg Neutrophils # Seg Neutrophils # Man Lymphocytes # (Manual) Monocytes # (Manual) PT INR D-Dimer Heparin Anti-Xa Level POC ABG pH ABG pH POC ABG pCO2 POC ABG pO2 ABG pO2 ABG HCO3 ABG O2 Saturation ABG Base Excess ABG Hemoglobin Oxyhemoglobin Sodium 133 L Potassium Chloride 94.0 L Carbon Dioxide 21 L BUN 81 H Creatinine 6.4 H Glucose POC Glucose 109 H Lactic Acid Calcium 5.5 L* Phosphorus Magnesium Total Bilirubin Direct Bilirubin AST 80 H ALT Alkaline Phosphatase 202 H Total Creatine Kinase 3589 H CK-MB (CK-2) Troponin T C-Reactive Protein Total Protein 5.3 L Albumin 2.4 L Triglycerides LDL Cholesterol Direct HDL Cholesterol Free T4 PTH Intact 329.9 H Urine WBC (Auto) Urine Creatinine Salicylates Acetaminophen Crossmatch 03/25/19 03/25/19 03/26/19 05:00 06:30 04:30 WBC 23.3 H RBC 3.61 L Hgb 10.2 L Hct 31.2 L RDW Plt Count 57 L Lymph % (Auto) Lymph # Seg Neutrophils % Seg Neuts % (Manual) 92.0 H Lymphocytes % (Manual) 6.0 L Monocytes % (Manual) Nucleated RBC % Seg Neutrophils # Seg Neutrophils # Man 21.4 H Lymphocytes # (Manual) Monocytes # (Manual) PT INR D-Dimer Heparin Anti-Xa Level POC ABG pH ABG pH 7.326 L POC ABG pCO2 POC ABG pO2 ABG pO2 109.5 H 137.4 H ABG HCO3 18.8 L 18.6 L ABG O2 Saturation ABG Base Excess -4.4 L -6.8 L ABG Hemoglobin 10.1 L 9.9 L Oxyhemoglobin Sodium Potassium Chloride Carbon Dioxide BUN Creatinine Glucose POC Glucose Lactic Acid Calcium Phosphorus Magnesium Total Bilirubin Direct Bilirubin AST ALT Alkaline Phosphatase Total Creatine Kinase CK-MB (CK-2) Troponin T C-Reactive Protein Total Protein Albumin Triglycerides LDL Cholesterol Direct HDL Cholesterol Free T4 PTH Intact Urine WBC (Auto) Urine Creatinine Salicylates Acetaminophen Crossmatch 03/26/19 03/26/19 03/26/19 23:22 Unknown Unknown WBC 19.5 H RBC 3.44 L Hgb 9.8 L Hct 29.9 L RDW Plt Count 85 L Lymph % (Auto) Lymph # Seg Neutrophils % Seg Neuts % (Manual) 95.0 H Lymphocytes % (Manual) 3.0 L Monocytes % (Manual) Nucleated RBC % Seg Neutrophils # Seg Neutrophils # Man 18.5 H Lymphocytes # (Manual) 0.6 L Monocytes # (Manual) PT INR D-Dimer Heparin Anti-Xa Level POC ABG pH ABG pH POC ABG pCO2 POC ABG pO2 ABG pO2 ABG HCO3 ABG O2 Saturation ABG Base Excess ABG Hemoglobin Oxyhemoglobin Sodium 135 L Potassium 5.2 H D Chloride 92.2 L Carbon Dioxide 18 L BUN 109 H Creatinine 8.5 H Glucose 117 H POC Glucose 69 L Lactic Acid Calcium 4.5 L* D Phosphorus Magnesium Total Bilirubin Direct Bilirubin AST ALT Alkaline Phosphatase Total Creatine Kinase 4527 H CK-MB (CK-2) Troponin T C-Reactive Protein Total Protein Albumin Triglycerides LDL Cholesterol Direct HDL Cholesterol Free T4 PTH Intact Urine WBC (Auto) Urine Creatinine Salicylates Acetaminophen Crossmatch 03/27/19 03/27/19 03/27/19 04:30 04:30 09:00 WBC 19.2 H RBC 3.42 L Hgb 9.9 L Hct 30.0 L RDW Plt Count 84 L Lymph % (Auto) Lymph # Seg Neutrophils % Seg Neuts % (Manual) Lymphocytes % (Manual) Monocytes % (Manual) Nucleated RBC % Seg Neutrophils # Seg Neutrophils # Man Lymphocytes # (Manual) Monocytes # (Manual) PT INR D-Dimer Heparin Anti-Xa Level POC ABG pH ABG pH POC ABG pCO2 POC ABG pO2 ABG pO2 ABG HCO3 ABG O2 Saturation ABG Base Excess ABG Hemoglobin Oxyhemoglobin Sodium 135 L Potassium Chloride 93.5 L Carbon Dioxide BUN 84 H Creatinine 7.1 H Glucose POC Glucose Lactic Acid Calcium 5.0 L* Phosphorus Magnesium Total Bilirubin Direct Bilirubin AST 78 H ALT Alkaline Phosphatase 135 H Total Creatine Kinase 4677 H CK-MB (CK-2) Troponin T C-Reactive Protein Total Protein 4.8 L Albumin 2.3 L Triglycerides 409 H LDL Cholesterol Direct HDL Cholesterol Free T4 PTH Intact Urine WBC (Auto) Urine Creatinine Salicylates Acetaminophen Crossmatch 03/27/19 03/27/19 03/27/19 12:37 14:15 14:15 WBC RBC Hgb 9.7 L Hct 29.5 L RDW Plt Count 87 L Lymph % (Auto) Lymph # Seg Neutrophils % Seg Neuts % (Manual) Lymphocytes % (Manual) Monocytes % (Manual) Nucleated RBC % Seg Neutrophils # Seg Neutrophils # Man Lymphocytes # (Manual) Monocytes # (Manual) PT 15.9 H INR 1.30 H D-Dimer Heparin Anti-Xa Level POC ABG pH ABG pH POC ABG pCO2 POC ABG pO2 ABG pO2 ABG HCO3 ABG O2 Saturation ABG Base Excess ABG Hemoglobin Oxyhemoglobin Sodium Potassium Chloride Carbon Dioxide BUN Creatinine Glucose POC Glucose 129 H Lactic Acid Calcium Phosphorus Magnesium Total Bilirubin Direct Bilirubin AST ALT Alkaline Phosphatase Total Creatine Kinase CK-MB (CK-2) Troponin T C-Reactive Protein Total Protein Albumin Triglycerides LDL Cholesterol Direct HDL Cholesterol Free T4 PTH Intact Urine WBC (Auto) Urine Creatinine Salicylates Acetaminophen Crossmatch 03/27/19 03/27/19 03/27/19 18:00 19:22 19:23 WBC RBC Hgb Hct RDW Plt Count Lymph % (Auto) Lymph # Seg Neutrophils % Seg Neuts % (Manual) Lymphocytes % (Manual) Monocytes % (Manual) Nucleated RBC % Seg Neutrophils # Seg Neutrophils # Man Lymphocytes # (Manual) Monocytes # (Manual) PT INR D-Dimer Heparin Anti-Xa Level < 0.10 L POC ABG pH ABG pH POC ABG pCO2 POC ABG pO2 ABG pO2 ABG HCO3 ABG O2 Saturation ABG Base Excess ABG Hemoglobin Oxyhemoglobin Sodium Potassium Chloride Carbon Dioxide BUN Creatinine Glucose POC Glucose 121 H Lactic Acid Calcium Phosphorus Magnesium Total Bilirubin Direct Bilirubin AST ALT Alkaline Phosphatase Total Creatine Kinase 4517 H CK-MB (CK-2) Troponin T C-Reactive Protein Total Protein Albumin Triglycerides LDL Cholesterol Direct HDL Cholesterol Free T4 PTH Intact Urine WBC (Auto) Urine Creatinine Salicylates Acetaminophen Crossmatch 03/27/19 03/27/19 03/28/19 22:10 23:52 03:49 WBC RBC Hgb Hct RDW Plt Count Lymph % (Auto) Lymph # Seg Neutrophils % Seg Neuts % (Manual) Lymphocytes % (Manual) Monocytes % (Manual) Nucleated RBC % Seg Neutrophils # Seg Neutrophils # Man Lymphocytes # (Manual) Monocytes # (Manual) PT INR D-Dimer Heparin Anti-Xa Level POC ABG pH 7.338 L ABG pH POC ABG pCO2 33.1 L POC ABG pO2 ABG pO2 ABG HCO3 ABG O2 Saturation ABG Base Excess ABG Hemoglobin Oxyhemoglobin Sodium Potassium Chloride Carbon Dioxide BUN Creatinine Glucose POC Glucose 113 H 117 H Lactic Acid Calcium Phosphorus Magnesium Total Bilirubin Direct Bilirubin AST ALT Alkaline Phosphatase Total Creatine Kinase CK-MB (CK-2) Troponin T C-Reactive Protein Total Protein Albumin Triglycerides LDL Cholesterol Direct HDL Cholesterol Free T4 PTH Intact Urine WBC (Auto) Urine Creatinine Salicylates Acetaminophen Crossmatch 03/28/19 03/28/19 03/28/19 05:13 05:13 06:18 WBC RBC Hgb Hct RDW Plt Count Lymph % (Auto) Lymph # Seg Neutrophils % Seg Neuts % (Manual) Lymphocytes % (Manual) Monocytes % (Manual) Nucleated RBC % Seg Neutrophils # Seg Neutrophils # Man Lymphocytes # (Manual) Monocytes # (Manual) PT INR D-Dimer Heparin Anti-Xa Level 0.23 L POC ABG pH ABG pH POC ABG pCO2 POC ABG pO2 ABG pO2 ABG HCO3 ABG O2 Saturation ABG Base Excess ABG Hemoglobin Oxyhemoglobin Sodium 135 L Potassium 5.5 H D Chloride 95.1 L Carbon Dioxide 16 L D BUN 129 H Creatinine 9.3 H Glucose 158 H POC Glucose 202 H Lactic Acid Calcium 4.0 L* D Phosphorus 12.40 H Magnesium Total Bilirubin Direct Bilirubin AST ALT Alkaline Phosphatase Total Creatine Kinase 4266 H CK-MB (CK-2) Troponin T C-Reactive Protein Total Protein Albumin Triglycerides LDL Cholesterol Direct HDL Cholesterol Free T4 PTH Intact Urine WBC (Auto) Urine Creatinine Salicylates Acetaminophen Crossmatch 03/28/19 03/28/19 03/28/19 08:25 10:00 12:00 WBC RBC Hgb 4.9 L* D Hct 15.4 L* D RDW Plt Count Lymph % (Auto) Lymph # Seg Neutrophils % Seg Neuts % (Manual) Lymphocytes % (Manual) Monocytes % (Manual) Nucleated RBC % Seg Neutrophils # Seg Neutrophils # Man Lymphocytes # (Manual) Monocytes # (Manual) PT 17.9 H INR 1.52 H D-Dimer 4845.98 H Heparin Anti-Xa Level POC ABG pH ABG pH POC ABG pCO2 POC ABG pO2 ABG pO2 ABG HCO3 ABG O2 Saturation ABG Base Excess ABG Hemoglobin Oxyhemoglobin Sodium Potassium Chloride Carbon Dioxide BUN Creatinine Glucose POC Glucose Lactic Acid Calcium Phosphorus Magnesium Total Bilirubin Direct Bilirubin AST ALT Alkaline Phosphatase Total Creatine Kinase CK-MB (CK-2) Troponin T C-Reactive Protein Total Protein Albumin Triglycerides LDL Cholesterol Direct HDL Cholesterol Free T4 PTH Intact Urine WBC (Auto) Urine Creatinine Salicylates Acetaminophen Crossmatch See Detail 03/28/19 03/28/19 03/28/19 12:28 14:10 17:43 WBC RBC Hgb 5.9 L* Hct 18.3 L* RDW Plt Count Lymph % (Auto) Lymph # Seg Neutrophils % Seg Neuts % (Manual) Lymphocytes % (Manual) Monocytes % (Manual) Nucleated RBC % Seg Neutrophils # Seg Neutrophils # Man Lymphocytes # (Manual) Monocytes # (Manual) PT INR D-Dimer Heparin Anti-Xa Level POC ABG pH ABG pH POC ABG pCO2 POC ABG pO2 ABG pO2 ABG HCO3 ABG O2 Saturation ABG Base Excess ABG Hemoglobin Oxyhemoglobin Sodium Potassium Chloride Carbon Dioxide BUN Creatinine Glucose POC Glucose 153 H 159 H Lactic Acid Calcium Phosphorus Magnesium Total Bilirubin Direct Bilirubin AST ALT Alkaline Phosphatase Total Creatine Kinase CK-MB (CK-2) Troponin T C-Reactive Protein Total Protein Albumin Triglycerides LDL Cholesterol Direct HDL Cholesterol Free T4 PTH Intact Urine WBC (Auto) Urine Creatinine Salicylates Acetaminophen Crossmatch 03/28/19 03/28/19 03/28/19 18:10 Unknown 23:59 WBC 24.8 H RBC 3.42 L Hgb 10.2 L D Hct 31.1 L D RDW 15.4 H Plt Count 54 L Lymph % (Auto) Lymph # Seg Neutrophils % Seg Neuts % (Manual) 91.0 H Lymphocytes % (Manual) 8.0 L Monocytes % (Manual) Nucleated RBC % Seg Neutrophils # Seg Neutrophils # Man 22.6 H Lymphocytes # (Manual) Monocytes # (Manual) PT INR D-Dimer Heparin Anti-Xa Level POC ABG pH ABG pH POC ABG pCO2 POC ABG pO2 ABG pO2 ABG HCO3 ABG O2 Saturation ABG Base Excess ABG Hemoglobin Oxyhemoglobin Sodium Potassium 5.7 H Chloride Carbon Dioxide BUN Creatinine Glucose POC Glucose 107 H Lactic Acid Calcium Phosphorus Magnesium Total Bilirubin Direct Bilirubin AST ALT Alkaline Phosphatase Total Creatine Kinase CK-MB (CK-2) Troponin T C-Reactive Protein Total Protein Albumin Triglycerides LDL Cholesterol Direct HDL Cholesterol Free T4 PTH Intact Urine WBC (Auto) Urine Creatinine Salicylates Acetaminophen Crossmatch 03/29/19 03/29/19 03/29/19 04:29 05:46 06:22 WBC RBC Hgb 8.6 L Hct 25.7 L RDW Plt Count 93 L Lymph % (Auto) Lymph # Seg Neutrophils % Seg Neuts % (Manual) Lymphocytes % (Manual) Monocytes % (Manual) Nucleated RBC % Seg Neutrophils # Seg Neutrophils # Man Lymphocytes # (Manual) Monocytes # (Manual) PT INR D-Dimer Heparin Anti-Xa Level POC ABG pH ABG pH POC ABG pCO2 32.2 L POC ABG pO2 ABG pO2 ABG HCO3 ABG O2 Saturation ABG Base Excess ABG Hemoglobin Oxyhemoglobin Sodium Potassium Chloride Carbon Dioxide BUN Creatinine Glucose POC Glucose 113 H Lactic Acid Calcium Phosphorus Magnesium Total Bilirubin Direct Bilirubin AST ALT Alkaline Phosphatase Total Creatine Kinase CK-MB (CK-2) Troponin T C-Reactive Protein Total Protein Albumin Triglycerides LDL Cholesterol Direct HDL Cholesterol Free T4 PTH Intact Urine WBC (Auto) Urine Creatinine Salicylates Acetaminophen Crossmatch 03/29/19 03/29/19 03/29/19 06:22 06:22 06:22 WBC 23.2 H RBC 2.91 L Hgb 8.6 L Hct 25.8 L RDW Plt Count 91 L Lymph % (Auto) Lymph # Seg Neutrophils % Seg Neuts % (Manual) Lymphocytes % (Manual) Monocytes % (Manual) Nucleated RBC % Seg Neutrophils # Seg Neutrophils # Man Lymphocytes # (Manual) Monocytes # (Manual) PT INR D-Dimer Heparin Anti-Xa Level POC ABG pH ABG pH POC ABG pCO2 POC ABG pO2 ABG pO2 ABG HCO3 ABG O2 Saturation ABG Base Excess ABG Hemoglobin Oxyhemoglobin Sodium 133 L Potassium Chloride 93.8 L Carbon Dioxide 18 L BUN 109 H Creatinine 7.4 H Glucose 124 H POC Glucose Lactic Acid Calcium 4.6 L* Phosphorus Magnesium Total Bilirubin Direct Bilirubin AST ALT Alkaline Phosphatase Total Creatine Kinase 3401 H CK-MB (CK-2) Troponin T C-Reactive Protein Total Protein Albumin Triglycerides 309 H LDL Cholesterol Direct HDL Cholesterol Free T4 PTH Intact Urine WBC (Auto) Urine Creatinine Salicylates Acetaminophen Crossmatch 03/29/19 03/29/19 03/29/19 11:48 11:48 18:24 WBC RBC Hgb 7.8 L Hct 23.2 L RDW Plt Count Lymph % (Auto) Lymph # Seg Neutrophils % Seg Neuts % (Manual) Lymphocytes % (Manual) Monocytes % (Manual) Nucleated RBC % Seg Neutrophils # Seg Neutrophils # Man Lymphocytes # (Manual) Monocytes # (Manual) PT 15.3 H INR 1.24 H D-Dimer Heparin Anti-Xa Level POC ABG pH ABG pH POC ABG pCO2 POC ABG pO2 ABG pO2 ABG HCO3 ABG O2 Saturation ABG Base Excess ABG Hemoglobin Oxyhemoglobin Sodium Potassium Chloride Carbon Dioxide BUN Creatinine Glucose POC Glucose 122 H Lactic Acid Calcium Phosphorus Magnesium Total Bilirubin Direct Bilirubin AST ALT Alkaline Phosphatase Total Creatine Kinase CK-MB (CK-2) Troponin T C-Reactive Protein Total Protein Albumin Triglycerides LDL Cholesterol Direct HDL Cholesterol Free T4 PTH Intact Urine WBC (Auto) Urine Creatinine Salicylates Acetaminophen Crossmatch 03/30/19 03/30/19 03/30/19 00:40 04:31 05:04 WBC RBC Hgb 7.6 L Hct 23.0 L RDW Plt Count Lymph % (Auto) Lymph # Seg Neutrophils % Seg Neuts % (Manual) Lymphocytes % (Manual) Monocytes % (Manual) Nucleated RBC % Seg Neutrophils # Seg Neutrophils # Man Lymphocytes # (Manual) Monocytes # (Manual) PT INR D-Dimer Heparin Anti-Xa Level POC ABG pH 7.346 L ABG pH POC ABG pCO2 POC ABG pO2 62 L ABG pO2 ABG HCO3 ABG O2 Saturation ABG Base Excess ABG Hemoglobin Oxyhemoglobin Sodium Potassium Chloride Carbon Dioxide BUN 79 H Creatinine 6.4 H Glucose POC Glucose Lactic Acid Calcium 6.1 L D Phosphorus Magnesium Total Bilirubin Direct Bilirubin AST ALT Alkaline Phosphatase Total Creatine Kinase CK-MB (CK-2) Troponin T C-Reactive Protein Total Protein Albumin Triglycerides LDL Cholesterol Direct HDL Cholesterol Free T4 PTH Intact Urine WBC (Auto) Urine Creatinine Salicylates Acetaminophen Crossmatch 03/30/19 03/30/19 03/30/19 08:45 22:43 23:38 WBC 14.3 H RBC 2.33 L Hgb 7.0 L 7.4 L Hct 21.0 L 22.3 L RDW 15.6 H Plt Count 135 L Lymph % (Auto) Lymph # Seg Neutrophils % Seg Neuts % (Manual) Lymphocytes % (Manual) Monocytes % (Manual) Nucleated RBC % Seg Neutrophils # Seg Neutrophils # Man Lymphocytes # (Manual) Monocytes # (Manual) PT INR D-Dimer Heparin Anti-Xa Level POC ABG pH ABG pH POC ABG pCO2 POC ABG pO2 ABG pO2 ABG HCO3 ABG O2 Saturation ABG Base Excess ABG Hemoglobin Oxyhemoglobin Sodium Potassium Chloride Carbon Dioxide BUN Creatinine Glucose POC Glucose 155 H Lactic Acid Calcium Phosphorus Magnesium Total Bilirubin Direct Bilirubin AST ALT Alkaline Phosphatase Total Creatine Kinase CK-MB (CK-2) Troponin T C-Reactive Protein Total Protein Albumin Triglycerides LDL Cholesterol Direct HDL Cholesterol Free T4 PTH Intact Urine WBC (Auto) Urine Creatinine Salicylates Acetaminophen Crossmatch 03/30/19 03/31/19 03/31/19 Unknown 04:44 04:44 WBC 11.5 H RBC 2.40 L Hgb 7.3 L Hct 21.9 L RDW 15.4 H Plt Count Lymph % (Auto) 10.6 L Lymph # Seg Neutrophils % 81.7 H Seg Neuts % (Manual) Lymphocytes % (Manual) Monocytes % (Manual) Nucleated RBC % Seg Neutrophils # 9.4 H Seg Neutrophils # Man Lymphocytes # (Manual) Monocytes # (Manual) PT INR D-Dimer Heparin Anti-Xa Level POC ABG pH ABG pH POC ABG pCO2 POC ABG pO2 ABG pO2 ABG HCO3 ABG O2 Saturation ABG Base Excess ABG Hemoglobin Oxyhemoglobin Sodium 135 L Potassium Chloride 96.7 L Carbon Dioxide 19 L BUN 94 H Creatinine 7.8 H Glucose POC Glucose Lactic Acid Calcium 5.3 L* Phosphorus 8.20 H Magnesium Total Bilirubin Direct Bilirubin 0.4 H AST 63 H ALT Alkaline Phosphatase Total Creatine Kinase CK-MB (CK-2) Troponin T C-Reactive Protein Total Protein 4.9 L Albumin 2.2 L Triglycerides LDL Cholesterol Direct HDL Cholesterol Free T4 PTH Intact Urine WBC (Auto) Urine Creatinine Salicylates Acetaminophen Crossmatch 03/31/19 03/31/19 03/31/19 05:44 08:20 22:14 WBC RBC Hgb Hct RDW Plt Count Lymph % (Auto) Lymph # Seg Neutrophils % Seg Neuts % (Manual) Lymphocytes % (Manual) Monocytes % (Manual) Nucleated RBC % Seg Neutrophils # Seg Neutrophils # Man Lymphocytes # (Manual) Monocytes # (Manual) PT INR D-Dimer Heparin Anti-Xa Level POC ABG pH 7.286 L ABG pH POC ABG pCO2 53.5 H 54.7 H POC ABG pO2 62 L 179 H ABG pO2 ABG HCO3 ABG O2 Saturation ABG Base Excess ABG Hemoglobin Oxyhemoglobin Sodium Potassium Chloride Carbon Dioxide BUN Creatinine Glucose POC Glucose Lactic Acid Calcium Phosphorus Magnesium Total Bilirubin Direct Bilirubin 0.4 H AST 60 H ALT Alkaline Phosphatase Total Creatine Kinase CK-MB (CK-2) Troponin T C-Reactive Protein Total Protein 4.8 L Albumin 2.1 L Triglycerides LDL Cholesterol Direct HDL Cholesterol Free T4 PTH Intact Urine WBC (Auto) Urine Creatinine Salicylates Acetaminophen Crossmatch 04/01/19 04/01/19 04/01/19 04:27 04:27 05:14 WBC RBC 2.60 L Hgb 8.0 L Hct 24.1 L RDW 15.7 H Plt Count Lymph % (Auto) 7.9 L Lymph # 0.7 L Seg Neutrophils % 83.6 H Seg Neuts % (Manual) Lymphocytes % (Manual) Monocytes % (Manual) Nucleated RBC % Seg Neutrophils # Seg Neutrophils # Man Lymphocytes # (Manual) Monocytes # (Manual) PT INR D-Dimer Heparin Anti-Xa Level POC ABG pH 7.283 L ABG pH POC ABG pCO2 53.4 H POC ABG pO2 241 H ABG pO2 ABG HCO3 ABG O2 Saturation ABG Base Excess ABG Hemoglobin Oxyhemoglobin Sodium Potassium Chloride Carbon Dioxide BUN 68 H Creatinine 6.6 H Glucose POC Glucose Lactic Acid Calcium 6.5 L D Phosphorus 7.30 H Magnesium Total Bilirubin Direct Bilirubin AST ALT Alkaline Phosphatase Total Creatine Kinase 1652 H CK-MB (CK-2) Troponin T C-Reactive Protein Total Protein Albumin Triglycerides LDL Cholesterol Direct HDL Cholesterol Free T4 PTH Intact Urine WBC (Auto) Urine Creatinine Salicylates Acetaminophen Crossmatch 04/01/19 05:37 WBC RBC Hgb Hct RDW Plt Count Lymph % (Auto) Lymph # Seg Neutrophils % Seg Neuts % (Manual) Lymphocytes % (Manual) Monocytes % (Manual) Nucleated RBC % Seg Neutrophils # Seg Neutrophils # Man Lymphocytes # (Manual) Monocytes # (Manual) PT INR D-Dimer Heparin Anti-Xa Level POC ABG pH ABG pH POC ABG pCO2 POC ABG pO2 ABG pO2 ABG HCO3 ABG O2 Saturation ABG Base Excess ABG Hemoglobin Oxyhemoglobin Sodium Potassium Chloride Carbon Dioxide BUN Creatinine Glucose POC Glucose 111 H Lactic Acid Calcium Phosphorus Magnesium Total Bilirubin Direct Bilirubin AST ALT Alkaline Phosphatase Total Creatine Kinase CK-MB (CK-2) Troponin T C-Reactive Protein Total Protein Albumin Triglycerides LDL Cholesterol Direct HDL Cholesterol Free T4 PTH Intact Urine WBC (Auto) Urine Creatinine Salicylates Acetaminophen Crossmatch Chest x-ray: other (none today) Allied health notes reviewed: nursing
--- NOTE | 2019-04-01 16:58 | Gastroenterology Progress Note ---
Assessment and Plan GI: UGI bleed due to pud s/p treatment - no further signs bleeding last 48 hrs - continue PPI iv - follow h/h - start PO when extubated and stable - will sign off, call if needed Subjective Date of service: 04/01/19 Principal diagnosis: Septic Shock; Ac. hypoxemic resp failure; Renzo. PNA; Rhabdomyolysis; RUBEN Interval history: - no signs bleeding overnight per staff Objective - Constitutional Vitals: Temp Pulse Resp BP Pulse Ox 98 F 89 16 130/54 100 04/01/19 12:00 04/01/19 14:30 04/01/19 14:30 04/01/19 14:30 04/01/19 14:30 General appearance: no acute distress - EENT Eyes: PERRL - Respiratory Respiratory: bilateral: CTA - Cardiovascular Rhythm: regular Heart Sounds: Present: S1 & S2 - Gastrointestinal General gastrointestinal: Present: soft, non-tender - Labs CBC & Chem 7: 04/01/19 04:27 04/01/19 04:27 Labs: Laboratory Results - last 24 hr 03/31/19 03/31/19 04/01/19 18:10 22:14 00:16 WBC RBC Hgb Hct MCV MCH MCHC RDW Plt Count Lymph % (Auto) [place] % (Auto) Eos % (Auto) Baso % (Auto) Lymph # [place] # Eos # Baso # Seg Neutrophils % Seg Neutrophils # POC ABG pH 7.286 L POC ABG pCO2 54.7 H POC ABG pO2 179 H POC ABG HCO3 26.0 POC ABG Total CO2 28 POC ABG O2 Sat 99 POC ABG Base Excess -1 FiO2 70 Sodium Potassium Chloride Carbon Dioxide Anion Gap BUN Creatinine Estimated GFR BUN/Creatinine Ratio Glucose POC Glucose 100 85 Calcium Phosphorus Total Creatine Kinase 04/01/19 04/01/19 04/01/19 04:27 04:27 05:14 WBC 8.8 RBC 2.60 L Hgb 8.0 L Hct 24.1 L MCV 93 MCH 31 MCHC 33 RDW 15.7 H Plt Count 195 Lymph % (Auto) 7.9 L [place] % (Auto) 6.9 Eos % (Auto) 1.2 Baso % (Auto) 0.4 Lymph # 0.7 L [place] # 0.6 Eos # 0.1 Baso # 0.0 Seg Neutrophils % 83.6 H Seg Neutrophils # 7.3 POC ABG pH 7.283 L POC ABG pCO2 53.4 H POC ABG pO2 241 H POC ABG HCO3 25.3 POC ABG Total CO2 27 POC ABG O2 Sat 100 POC ABG Base Excess -1 FiO2 70 Sodium 138 Potassium 4.7 Chloride 100.0 Carbon Dioxide 23 Anion Gap 20 BUN 68 H Creatinine 6.6 H Estimated GFR 11 BUN/Creatinine Ratio 10 Glucose 95 POC Glucose Calcium 6.5 L D Phosphorus 7.30 H Total Creatine Kinase 1652 H 04/01/19 05:37 WBC RBC Hgb Hct MCV MCH MCHC RDW Plt Count Lymph % (Auto) [place] % (Auto) Eos % (Auto) Baso % (Auto) Lymph # [place] # Eos # Baso # Seg Neutrophils % Seg Neutrophils # POC ABG pH POC ABG pCO2 POC ABG pO2 POC ABG HCO3 POC ABG Total CO2 POC ABG O2 Sat POC ABG Base Excess FiO2 Sodium Potassium Chloride Carbon Dioxide Anion Gap BUN Creatinine Estimated GFR BUN/Creatinine Ratio Glucose POC Glucose 111 H Calcium Phosphorus Total Creatine Kinase
[2019-04-01] MEDS: ACETAMINOPHEN 325 MG TAB PO PRN (18:46)
[2019-04-01] MEDS ORDERED: METOCLOPRAMIDE 10 MG/2 ML INJ IV SCH (20:00)
[2019-04-01] MEDS: METOCLOPRAMIDE 10 MG/2 ML INJ IV SCH (21:26)
[2019-04-02] MEDS: fentaNYL DRIP Premix 2,000 MCG/100 ML BAG IV SCH ×5 (02:15→23:25)
[2019-04-02] MEDS: NORepinephrine/NS 4 MG-250 ML 4 MG/250 ML BAG IV SCH ×3 (02:24→17:22)
[2019-04-02] MEDS: AMIODARONE 900 MG in DEXTROSE 5% IN WATER 482 ML IV SCH ×2 (04:26→18:01)
[2019-04-02 05:28] LABS: Basophils % (Auto) 0.3 % (0.0-1.8); Eosinophils # (Auto) 0.2 K/mm3 (0.0-0.4); Eosinophils % (Auto) 2.1 % (0.0-4.3); Hematocrit 21.9 % (35.5-45.6); Hemoglobin 7.2 gm/dl (11.8-15.2); Lymphocytes # (Auto) 0.8 K/mm3 (1.2-5.4); Lymphocytes % (Auto) 10.8 % (13.4-35.0); Mean Corpuscular HGB Conc 33 % (32-34); Mean Corpuscular Volume 93 fl (84-94); Monocytes # (Auto) 0.5 K/mm3 (0.0-0.8); Monocytes % (Auto) 6.5 % (0.0-7.3); Platelet Count 201 K/mm3 (140-440); Red Blood Count 2.36 M/mm3 (3.65-5.03)
[2019-04-02] MEDS: METOCLOPRAMIDE 10 MG/2 ML INJ IV SCH ×4 (05:42→23:37)
[2019-04-02] MEDS: LORazepam 2 MG/ML VIAL IV PRN (05:42)
--- NOTE | 2019-04-02 07:24 | Hem/Onc Progress Note ---
Assessment and Plan 1. h/o Anemia. The patient has history of bleeding. 2. Internal jugular partial thrombosis. The patient was started on heparin. This has been held due to bleeding 3. Gastrointestinal bleed. 4. h/o Elevated creatinine kinase. 5. h/o Low calcium. 6. h/o Thrombocytopenia. 7. h/o Renal failure. 8. Intubation. 9. Transfusion support. 10. Leukocytosis. At this time, supportive care may help the patient. The patient's platelet has been low since admission. Urine toxicology was negative. awake - on vent dvt - off anticoagulation - due to bleeding platelet better - Patient Problems (1) DVT (deep venous thrombosis) Current Visit: Yes Status: Acute Subjective Date of service: 04/02/19 Principal diagnosis: anemia Interval history: on vent - awake - moves minimally Objective - Exam Narrative Exam: Pain - intubated General appearance - awake - on vent Performance status complete dependence Eyes - no icterus ENT - intubated LNs cervical not palpable Neck - no LN Respiratory Normal Breath sounds - CTA anteriorly CVS S1 S2 + Extremities edema + General GI Soft Rectal deferred male - deferred Skin warm Musculoskeletal awake - on vent Neurologically awake - Constitutional Vitals: Last Vital Signs Temp 100.9 F H 04/02/19 04:00 Pulse 128 H 04/02/19 06:01 Resp 19 04/02/19 06:01 BP 107/50 04/02/19 06:01 Pulse Ox 99 04/02/19 06:01 - Labs Lab Results: Laboratory Results - last 24 hr 03/30/19 04/01/19 04/01/19 12:09 18:37 21:28 WBC RBC Hgb Hct MCV MCH MCHC RDW Plt Count Lymph % (Auto) [place] % (Auto) Eos % (Auto) Baso % (Auto) Lymph # [place] # Eos # Baso # Seg Neutrophils % Seg Neutrophils # POC ABG pH 7.299 L POC ABG pCO2 48.2 H POC ABG pO2 133 H POC ABG HCO3 23.7 POC ABG Total CO2 25 POC ABG O2 Sat 99 POC ABG Base Excess -3 FiO2 40 POC Glucose 119 H Ionized Calcium 3.7 L Ferritin 04/01/19 04/02/19 04/02/19 23:58 04:40 05:03 WBC 7.6 RBC 2.36 L Hgb 7.2 L Hct 21.9 L MCV 93 MCH 31 MCHC 33 RDW 16.0 H Plt Count 201 Lymph % (Auto) 10.8 L [place] % (Auto) 6.5 Eos % (Auto) 2.1 Baso % (Auto) 0.3 Lymph # 0.8 L [place] # 0.5 Eos # 0.2 Baso # 0.0 Seg Neutrophils % 80.3 H Seg Neutrophils # 6.1 POC ABG pH 7.300 L POC ABG pCO2 45.2 H POC ABG pO2 107 H POC ABG HCO3 22.2 POC ABG Total CO2 24 POC ABG O2 Sat 98 POC ABG Base Excess -4 FiO2 35 POC Glucose 103 Ionized Calcium Ferritin 04/02/19 04/02/19 05:03 05:36 WBC RBC Hgb Hct MCV MCH MCHC RDW Plt Count Lymph % (Auto) [place] % (Auto) Eos % (Auto) Baso % (Auto) Lymph # [place] # Eos # Baso # Seg Neutrophils % Seg Neutrophils # POC ABG pH POC ABG pCO2 POC ABG pO2 POC ABG HCO3 POC ABG Total CO2 POC ABG O2 Sat POC ABG Base Excess FiO2 POC Glucose 103 Ionized Calcium Ferritin 607.0 H Medications & Allergies - Medications Allergies/Adverse Reactions: Allergies No Known Allergies Allergy (Unverified 03/16/19 17:17) Home Medications: Home Medications Medication Instructions Recorded Confirmed Last Taken Type Unobtainable 03/18/19 03/18/19 Unknown History Active Medications: Generic Name Dose Route Start Last Admin Trade Name Freq PRN Reason Stop Dose Admin Acetaminophen 650 mg 03/29/19 19:51 03/31/19 08:39 Tylenol [place] 650 mg Q4H PRN Administration Fever > 100.5 Albuterol 2.5 mg 03/29/19 13:08 Proventil IH Q4HRT PRN Shortness Of Breath Lipase/Protease/Amylase 1 each 03/17/19 14:[address] 10,500 Unit FEEDTUBE PRN PRN For Clogged Feeding Tube Calcium Acetate 1,334 mg 03/31/19 14:00 04/01/19 21:25 Phoslo PO 1,334 mg TID PAOLO Administration Dextrose 50 gm 03/19/19 18:39 03/26/19 23:26 D50w (25gm) Vial IV 50 gm PRN PRN Administration Hypoglycemia Epoetin Jet 20,000 unit 03/31/19 10:15 03/31/19 20:09 Procrit SUB-Q 20,000 unit NEYMAR PRN Administration hemodialysis Fentanyl 50 mcg 03/26/19 12:00 04/01/19 09:47 Sublimaze IV 50 mcg Q1H PRN Administration Pain, Moderate (4-6) Hydrophilic Ointment 1 applic 03/16/19 15:50 Vaseline Lip Therapy TP Q2HR PRN Dry Lips Phenylephrine HCl 100 mg/ 100 mls @ 3 mls/hr 03/17/19 02:30 03/19/19 18:48 Sodium Chloride IV Infused TITR PAOLO Titration Protocol 50 MCG/MIN Fentanyl Citrate 2,000 mcg in 100 mls @ 7.85 mls/hr 03/26/19 12:00 04/02/19 05:40 Fentanyl Drip Premix IV 3 mcg/kg/hr TITR PAOLO 23.55 mls/hr Administration Protocol 1 MCG/KG/HR Cefepime HCl 2 gm in 100 mls @ 200 mls/hr 03/27/19 14:00 04/01/19 14:29 Maxipime/Ns 2 Gm/100 Ml IV 200 mls/hr Q24H PAOLO Administration Protocol Norepinephrine 4 mg in 250 mls @ 7.5 mls/hr 03/27/19 22:16 04/02/19 02:24 Levophed Drip 4 Mg/Ns 250 Ml IV 6 mcg/min TITR PAOLO 22.5 mls/hr Administration Protocol 2 MCG/MIN Pantoprazole Sodium 80 mg/ 100 mls @ 10 mls/hr 03/28/19 09:30 04/01/19 21:26 Sodium Chloride IV 8 mg/hr DIRECT PAOLO 10 mls/hr Administration 8 MG/HR Vasopressin 20 unit/ Sodium 101 mls @ 9.09 mls/hr 03/28/19 09:00 03/28/19 15:38 Chloride IV 0 units/min TITR PAOLO 0 mls/hr Titration Protocol 0.03 UNITS/MIN Sodium Chloride 100 mls @ 999 mls/hr 03/29/19 15:30 Nacl 0.9% IV NEYMAR PRN Hypotension Amiodarone HCl 900 mg/ 500 mls @ 33.333 mls/hr 03/30/19 13:00 04/02/19 04:26 Dextrose IV 1 mg/min DIRECT PAOLO 33.333 mls/hr Administration Protocol 1 MG/MIN Sodium Chloride 100 mls @ 999 mls/hr 03/31/19 10:15 Nacl 0.9% IV NEYMAR PRN Hypotension Lorazepam 2 mg 03/26/19 11:54 04/02/19 05:42 Ativan IV 2 mg Q1H PRN Administration Agitation Metoclopramide HCl 2.5 mg 04/01/19 22:00 04/02/19 05:42 Reglan IV 2.5 mg Q8HR PAOLO Administration Metoprolol Tartrate 25 mg 03/28/19 14:00 04/01/19 20:54 Lopressor PO Not Given TID PAOLO Multi-Ingred Cream/Lotion/Oil/Oint 1 applic 03/16/19 15:50 03/19/19 20:10 Artificial Tears Ophth Oint OU 1 applic Q4HR PRN Administration Dry Eye(s) Ondansetron HCl 4 mg 03/16/19 22:21 Zofran IV Q8H PRN Nausea And Vomiting Paricalcitol 2 mcg 03/30/19 10:00 04/01/19 10:37 Zemplar IV 2 mcg DAILY PAOLO Administration Simple Syrup 15 ml 03/17/19 14:45 03/26/19 23:19 Simple Syrup FEEDTUBE 15 ml PRN PRN Administration Hypoglycemia Simple Syrup 30 ml 03/17/19 14:45 Simple Syrup FEEDTUBE PRN PRN Hypoglycemia Sodium Bicarbonate 325 mg 03/17/19 14:45 Sodium Bicarbonate FEEDTUBE PRN PRN For Clogged Feeding Tube
--- NOTE | 2019-04-02 08:20 | Progress Note ---
Assessment and Plan Assessment and plan: 43-year-old man with history of GERD and obesity who presented to the hospital altered mental status, he was visiting from [place] and brought in by his friend. He has been feeling ill for a few days and have left eye discharge and there was mention of right axilla/patient was more lethargic, had trouble breathing and then suddenly could not walk on his own. When he came to the ER was unable to speak or follow commands, in the ER he was found to have SVT with heart rate in the 250s. The patient was shocks and medicated. He became more confused and had trouble protecting his airway, he was then intubated -[facility] Status post, cardiopulmonary arrest, status post shock for SVT in 250s after which she deteriorated into polymorphic V. tach for which she was shocked again. And then intubated in the ER Paroxysmal A. fib with RVR Torsade sparkle points/ventricular tachycardia EF 40% * Cardiology input appreciated, continue amiodarone drip, no beta-adela or CHRISTIN given hypotension, will need ischemic cardiac stratification if he improves. acute systolic chf, ef 40 fluid removal via HD, optimize cardiac meds when BP able to tolerate it -Please avoid IV fluids or electrolyte repletion with large volume bags. Calcium chloride being given as IV pushes Acute GI bleed, upper GI bleed due to PUD -PPI , heparin drip discontinued, EGD on 03/30 shows multiple ulcers, and large ulcer was rx with epi -unfortunately patient has now had melena again today on 04/02, hold tube feeds, restart Protonix drip, discussed with GI Acute blood loss anemia Transfused multiple units of PRBC, now improved, transfuse another unit as patient is actively bleeding Right IJ nonocclusive thrombosis Discussed with vascular surgery, patient unable to tolerate anticoagulation due to thrombocytopenia and GI bleeding. Will monitor Septic shock with multiorgan failure, off pressors for 48 hours Aspiration pneumonia Brain MRI was a limited study due to lack of contrast and motion artifact. No acute findings on MRI brain, could not evaluate for leptomeningeal enhancement without IV contrast , follow-up blood cultures, LP awaited due to low platelets. Continue antibiotics, tickborne serologies pending, prognosis guarded cont pressors Acute kidney injury, rhabdomyolysis, hyperkalemia Continue dialysis per nephrology Acute hypoxic respiratory failure on mechanical ventilator greater than 96 hours Continue ventilator, continue to attempt to wean per the personal clothing laundry aide Presumed ARDS secondary hyperparathyroidism, hyperphosphatemia/Profound hypocalcemia repleted and improved, likely related to renal failure, binders, vit D and Ca supplements Acute Metabolic Encephalopathy Severe metabolic acidosis, improved rhabdomyolysis, CK trending down Thrombocytopenia Likely due to sepsis, continue to monitor DVT prophylaxis, no anticoagulation given multiple episodes of GI bleed and thrombocytopenia. SCDs Advanced care planning, family wants to cont aggressive mgt The high probability of a clinically significant, sudden or life threatening deterioration of the [multiple organs] system(s) required my full and direct attention, intervention and personal management. The aggregate critical care time was [45] minutes. This time is in addition to time spent performing reported procedures but includes the following: [x] Data Review and interpretation [x] Patient assessment and monitoring of vital signs [x] Documentation [x] Medication orders and management History Interval history: He had a large melanotic stool. He has been hypotensive and tachycardic. Continues to have fever, no seizure, no agitation, -continues to have severe edema of upper extremities Remains intubated and sedated Hospitalist Physical - Physical exam Narrative exam: General.: Appears ill, intubated, patient opens eyes, not responsive, does not obey commands. No spontaneous movement of extremities. HEENT: Moist mucous membranes, extraocular muscles intact, no lymphadenopathy Neck: supple Cardiac: S1-S2 heard Lungs: Decreased breath sounds, ventilated breath sounds Abdomen: soft , nontender, nondistended, bowel sounds positive Extremities: 4 plus edema, weeping edema in UE Skin: no rash or lesions Neurologic: Intubated and on only very mild sedation. Patient opens eyes, does not obey commands, does not move his extremities spontaneously. Psych: Intubated and sedated - Constitutional Vitals: Temp Pulse Resp BP Pulse Ox 100.9 F H 128 H 19 107/50 99 04/02/19 04:00 04/02/19 06:01 04/02/19 06:01 04/02/19 06:01 04/02/19 06:01 General appearance: Present: other (intubated) Results - Labs CBC & Chem 7: 04/02/19 12:15 04/02/19 05:03 Labs: Laboratory Last Values WBC 7.6 K/mm3 (4.5-11.0) 04/02/19 05:03 RBC 2.36 M/mm3 (3.65-5.03) L 04/02/19 05:03 Hgb 7.2 gm/dl (11.8-15.2) L 04/02/19 05:03 Hct 21.9 % (35.5-45.6) L 04/02/19 05:03 MCV 93 fl (84-94) 04/02/19 05:03 MCH 31 pg (28-32) 04/02/19 05:03 MCHC 33 % (32-34) 04/02/19 05:03 RDW 16.0 % (13.2-15.2) H 04/02/19 05:03 Plt Count 201 K/mm3 (140-440) 04/02/19 05:03 Lymph % (Auto) 10.8 % (13.4-35.0) L 04/02/19 05:03 [place] % (Auto) 6.5 % (0.0-7.3) 04/02/19 05:03 Eos % (Auto) 2.1 % (0.0-4.3) 04/02/19 05:03 Baso % (Auto) 0.3 % (0.0-1.8) 04/02/19 05:03 Lymph # 0.8 K/mm3 (1.2-5.4) L 04/02/19 05:03 [place] # 0.5 K/mm3 (0.0-0.8) 04/02/19 05:03 Eos # 0.2 K/mm3 (0.0-0.4) 04/02/19 05:03 Baso # 0.0 K/mm3 (0.0-0.1) 04/02/19 05:03 Add Manual Diff Complete 03/28/19 18:10 Total Counted 100 03/28/19 18:10 Seg Neutrophils % 80.3 % (40.0-70.0) H 04/02/19 05:03 Seg Neuts % (Manual) 91.0 % (40.0-70.0) H 03/28/19 18:10 Band Neutrophils % 0 % 03/28/19 18:10 Lymphocytes % (Manual) 8.0 % (13.4-35.0) L 03/28/19 18:10 Reactive Lymphs % (Man) 0 % 03/28/19 18:10 Monocytes % (Manual) 1.0 % (0.0-7.3) 03/28/19 18:10 Eosinophils % (Manual) 0 % (0.0-4.3) 03/28/19 18:10 Basophils % (Manual) 0 % (0.0-1.8) 03/28/19 18:10 Metamyelocytes % 0 % 03/28/19 18:10 Myelocytes % 0 % 03/28/19 18:10 Promyelocytes % 0 % 03/28/19 18:10 Blast Cells % 0 % 03/28/19 18:10 Nucleated RBC % Not Reportable 03/28/19 18:10 Seg Neutrophils # 6.1 K/mm3 (1.8-7.7) 04/02/19 05:03 Seg Neutrophils # Man 22.6 K/mm3 (1.8-7.7) H 03/28/19 18:10 Band Neutrophils # 0.0 K/mm3 03/28/19 18:10 Lymphocytes # (Manual) 2.0 K/mm3 (1.2-5.4) 03/28/19 18:10 Abs React Lymphs (Man) 0.0 K/mm3 03/28/19 18:10 Monocytes # (Manual) 0.2 K/mm3 (0.0-0.8) 03/28/19 18:10 Eosinophils # (Manual) 0.0 K/mm3 (0.0-0.4) 03/28/19 18:10 Basophils # (Manual) 0.0 K/mm3 (0.0-0.1) 03/28/19 18:10 Metamyelocytes # 0.0 K/mm3 03/28/19 18:10 Myelocytes # 0.0 K/mm3 03/28/19 18:10 Promyelocytes # 0.0 K/mm3 03/28/19 18:10 Blast Cells # 0.0 K/mm3 03/28/19 18:10 WBC Morphology Not Reportable 03/28/19 18:10 Hypersegmented Neuts Not Reportable 03/28/19 18:10 Hyposegmented Neuts Not Reportable 03/28/19 18:10 Hypogranular Neuts Not Reportable 03/28/19 18:10 Smudge Cells Not Reportable 03/28/19 18:10 Toxic Granulation Not Reportable 03/28/19 18:10 Toxic Vacuolation Not Reportable 03/28/19 18:10 Dohle Bodies Not Reportable 03/28/19 18:10 Pelger-Huet Anomaly Not Reportable 03/28/19 18:10 Joyce Rods Not Reportable 03/28/19 18:10 Platelet Estimate Appears decreased 03/28/19 18:10 Clumped Platelets Not Reportable 03/28/19 18:10 Plt Clumps, EDTA Not Reportable 03/28/19 18:10 Large Platelets Not Reportable 03/28/19 18:10 Giant Platelets Not Reportable 03/28/19 18:10 Platelet Satelliting Not Reportable 03/28/19 18:10 Plt Morphology Comment Not Reportable 03/28/19 18:10 RBC Morphology Not Reportable 03/28/19 18:10 Dimorphic RBCs Not Reportable 03/28/19 18:10 Polychromasia Not Reportable 03/28/19 18:10 Hypochromasia Not Reportable 03/28/19 18:10 Poikilocytosis Not Reportable 03/28/19 18:10 Anisocytosis Few 03/28/19 18:10 Microcytosis Not Reportable 03/28/19 18:10 Macrocytosis Not Reportable 03/28/19 18:10 Spherocytes Not Reportable 03/28/19 18:10 Pappenheimer Bodies Not Reportable 03/28/19 18:10 Sickle Cells Not Reportable 03/28/19 18:10 Target Cells Not Reportable 03/28/19 18:10 Tear Drop Cells Not Reportable 03/28/19 18:10 Ovalocytes Not Reportable 03/28/19 18:10 Stomatocytes Few 03/26/19 Unknown Helmet Cells Not Reportable 03/28/19 18:10 [place] Bodies Not Reportable 03/28/19 18:10 [place] Rings Not Reportable 03/28/19 18:10 Samantha Cells Not Reportable 03/28/19 18:10 Bite Cells Not Reportable 03/28/19 18:10 Crenated Cell Not Reportable 03/28/19 18:10 Elliptocytes Not Reportable 03/28/19 18:10 Acanthocytes (Spur) Not Reportable 03/28/19 18:10 Rouleaux Not Reportable 03/28/19 18:10 Hemoglobin C Crystals Not Reportable 03/28/19 18:10 Schistocytes Not Reportable 03/28/19 18:10 Malaria parasites Not Reportable 03/28/19 18:10 Phil Bodies Not Reportable 03/28/19 18:10 Hem Pathologist Commnt No 03/28/19 18:10 PT 15.3 Sec. (12.2-14.9) H 03/29/19 11:48 INR 1.24 (0.87-1.13) H 03/29/19 11:48 APTT 26.6 Sec. (24.2-36.6) 03/28/19 12:00 Fibrinogen 226 mg/dl (211-480) 03/28/19 12:00 D-Dimer 4845.98 ng/mlDDU (0-234) H 03/28/19 12:00 Heparin Anti-Xa Level 0.23 U.I./ml (0.3-0.7) L 03/28/19 05:13 POC ABG pH 7.300 (7.35-7.45) L 04/02/19 04:40 ABG pH 7.326 pH Units (7.350-7.450) L 03/26/19 04:30 POC ABG pCO2 45.2 (35-45) H 04/02/19 04:40 ABG pCO2 36.4 mm Hg 03/26/19 04:30 POC ABG pO2 107 (80-105) H 04/02/19 04:40 ABG pO2 137.4 mm Hg (80.0-90.0) H 03/26/19 04:30 POC ABG HCO3 22.2 (22-26 mml/L) 04/02/19 04:40 ABG HCO3 18.6 mmol/L (20.0-26.0) L 03/26/19 04:30 POC ABG Total CO2 24 (23-27mmol/L) 04/02/19 04:40 POC ABG O2 Sat 98 04/02/19 04:40 ABG O2 Saturation 98.6 % (95.0-99.0) 03/26/19 04:30 ABG O2 Content 13.7 (0.0-44) 03/26/19 04:30 POC ABG Base Excess -4 ((-2) - (+3)mmol/L) 04/02/19 04:40 ABG Base Excess -6.8 mmol/L (-2.0-3.0) L 03/26/19 04:30 ABG Hemoglobin 9.9 gm/dl (14.0-18.0) L 03/26/19 04:30 ABG Carboxyhemoglobin 1.4 % (0.0-5.0) 03/26/19 04:30 ABG Methemoglobin 0.6 % (0.0-1.5) 03/26/19 04:30 Oxyhemoglobin 96.5 % (95.0-99.0) 03/26/19 04:30 FiO2 35 % 04/02/19 04:40 Sodium 138 mmol/L (137-145) 04/01/19 04:27 Potassium 4.7 mmol/L (3.6-5.0) 04/01/19 04:27 Chloride 100.0 mmol/L (98-107) 04/01/19 04:27 Carbon Dioxide 23 mmol/L (22-30) 04/01/19 04:27 Anion Gap 20 mmol/L 04/01/19 04:27 BUN 68 mg/dL (9-20) H 04/01/19 04:27 Creatinine 6.6 mg/dL (0.8-1.5) H 04/01/19 04:27 Estimated GFR 11 ml/min 04/01/19 04:27 BUN/Creatinine Ratio 10 % 04/01/19 04:27 Glucose 95 mg/dL (75-100) 04/01/19 04:27 POC Glucose 103 (70-105) 04/02/19 05:36 Lactic Acid 1.90 mmol/L (0.7-2.0) 03/21/19 21:31 Calcium 6.5 mg/dL (8.4-10.2) L D 04/01/19 04:27 Ionized Calcium 3.7 mg/dL (4.8-5.6) L 03/30/19 12:09 Phosphorus 7.30 mg/dL (2.5-4.5) H 04/01/19 04:27 Magnesium 1.90 mg/dL (1.7-2.3) 03/31/19 15:07 Ferritin 607.0 ng/mL (13.0-400.0) H 04/02/19 05:03 Total Bilirubin 0.50 mg/dL (0.1-1.2) 03/31/19 08:20 Direct Bilirubin 0.4 mg/dL (0-0.2) H 03/31/19 08:20 Indirect Bilirubin 0.1 mg/dL 03/31/19 08:20 AST 60 units/L (5-40) H 03/31/19 08:20 ALT 30 units/L (7-56) 03/31/19 08:20 Alkaline Phosphatase 59 units/L (35-129) 03/31/19 08:20 Total Creatine Kinase 1652 units/L (55-170) H 04/01/19 04:27 CK-MB (CK-2) 54.3 ng/mL (0.0-4.0) H 03/17/19 07:16 CK-MB (CK-2) Rel Index 0.0 (0-4) 03/17/19 07:16 Troponin T 0.058 ng/mL (0.00-0.029) H 03/17/19 07:16 C-Reactive Protein 13.30 mg/dL (0.00-1.30) H 03/20/19 14:45 Total Protein 4.8 g/dL (6.3-8.2) L 03/31/19 08:20 Albumin 2.1 g/dL (3.9-5) L 03/31/19 08:20 Albumin/Globulin Ratio 0.8 % 03/31/19 08:20 Triglycerides 309 mg/dL (2-149) H 03/29/19 06:22 Cholesterol 88 mg/dL (50-199) 03/16/19 22:32 LDL Cholesterol Direct 10 mg/dL (50-130) L 03/16/19 22:32 HDL Cholesterol 7 mg/dL (40-59) L 03/16/19 22:32 Cholesterol/HDL Ratio 12.57 % 03/16/19 22:32 Procalcitonin 25.42 ng/mL (<0.15) 03/27/19 19:21 TSH 2.200 mlU/mL (0.270-4.200) 03/16/19 17:05 Free T4 0.72 ng/dL (0.76-1.46) L 03/16/19 17:05 PTH Intact 329.9 pg/mL (15-65) H 03/25/19 05:00 Urine Color Kathy (Yellow) 03/17/19 16:05 Urine Turbidity Cloudy (Clear) 03/17/19 16:05 Urine pH 5.0 (5.0-7.0) 03/17/19 16:05 Ur Specific [place] 1.014 (1.003-1.030) 03/17/19 16:05 Urine Protein >500 mg/dL (Negative) 03/17/19 16:05 Urine Glucose (UA) 50 mg/dL (Negative) 03/17/19 16:05 Urine Ketones Tr mg/dL (Negative) 03/17/19 16:05 Urine Blood Lg (Negative) 03/17/19 16:05 Urine Nitrite Neg (Negative) 03/17/19 16:05 Urine Bilirubin Neg (Negative) 03/17/19 16:05 Urine Urobilinogen < 2.0 mg/dL (<2.0) 03/17/19 16:05 Ur Leukocyte Esterase Mod (Negative) 03/17/19 16:05 Urine WBC (Auto) 30.0 /HPF (0.0-6.0) H 03/17/19 16:05 Urine RBC (Auto) 11.0 /HPF (0.0-6.0) 03/17/19 16:05 U Epithel Cells (Auto) < 1.0 /HPF (0-13.0) 03/17/19 16:05 Urine Mucus Few /HPF 03/17/19 16:05 Urine Sperm 2+ /HPF (VEHICLE BODY BUILDER) 03/17/19 16:05 Urine Eosinophils None seen (None Seen) 03/17/19 16:05 Urine Creatinine 106.6 mg/dL (0.1-20.0) H 03/17/19 16:05 Urine Sodium 95 mmol/L 03/17/19 16:05 Vancomycin Trough 11.5 ug/mL (5.0-20.0) 03/18/19 13:19 Random Vancomycin 16.6 ug/mL (0-40.0) 03/30/19 04:31 Salicylates < 0.3 mg/dL (2.8-20.0) L 03/16/19 17:05 Urine Opiates Screen Presumptive negative 03/17/19 16:05 Urine Methadone Screen Presumptive negative 03/17/19 16:05 Acetaminophen < 5.0 ug/mL (10.0-30.0) L 03/16/19 17:05 Ur Barbiturates Screen Presumptive negative 03/17/19 16:05 Ur Phencyclidine Scrn Presumptive negative 03/17/19 16:05 Ur Amphetamines Screen Presumptive negative 03/17/19 16:05 U Benzodiazepines Scrn Presumptive positive 03/17/19 16:05 Urine Cocaine Screen Presumptive negative 03/17/19 16:05 U Marijuana (THC) Screen Presumptive negative 03/17/19 16:05 Drugs of Abuse Note Disclamer 03/17/19 16:05 Plasma/Serum Alcohol < 0.01 % (0-0.07) 03/16/19 17:05 Hepatitis A IgM Ab Non-reactive (NonReactive) 03/18/19 13:18 Hep Bs Antigen Non-reactive (Negative) 03/18/19 13:18 Hep B Core IgM Ab Non-reactive (NonReactive) 03/18/19 13:18 Hepatitis C Antibody Non-reactive (NonReactive) 03/18/19 13:18 HIV 1&2 Antibody Rapid Non react (Non React) 03/17/19 11:52 HIV P24 Antigen Non react (Non React) 03/17/19 11:52 Influenza A (Rapid) Negative (Negative) 03/17/19 17:00 Influenza B (Rapid) Negative (Negative) 03/17/19 17:00 Group A Strep Rapid Negative (Negative) 03/17/19 17:00 Blood Type A POSITIVE 03/28/19 10:00 Antibody Screen Negative 03/28/19 10:00 Crossmatch See Detail 03/28/19 10:00 Active Medications - Current Medications Current Medications: Generic Name Dose Route Start Last Admin Trade Name Freq PRN Reason Stop Dose Admin Acetaminophen 650 mg 03/29/19 19:51 03/31/19 08:39 Tylenol [place] 650 mg Q4H PRN Administration Fever > 100.5 Albuterol 2.5 mg 03/29/19 13:08 Proventil IH Q4HRT PRN Shortness Of Breath Lipase/Protease/Amylase 1 each 03/17/19 14:[address] 10,500 Unit FEEDTUBE PRN PRN For Clogged Feeding Tube Calcium Acetate 1,334 mg 03/31/19 14:00 04/01/19 21:25 Phoslo PO 1,334 mg TID PAOLO Administration Dextrose 50 gm 03/19/19 18:39 03/26/19 23:26 D50w (25gm) Vial IV 50 gm PRN PRN Administration Hypoglycemia Epoetin Jet 20,000 unit 03/31/19 10:15 03/31/19 20:09 Procrit SUB-Q 20,000 unit NEYMAR PRN Administration hemodialysis Fentanyl 50 mcg 03/26/19 12:00 04/01/19 09:47 Sublimaze IV 50 mcg Q1H PRN Administration Pain, Moderate (4-6) Hydrophilic Ointment 1 applic 03/16/19 15:50 Vaseline Lip Therapy TP Q2HR PRN Dry Lips Phenylephrine HCl 100 mg/ 100 mls @ 3 mls/hr 03/17/19 02:30 03/19/19 18:48 Sodium Chloride IV Infused TITR PAOLO Titration Protocol 50 MCG/MIN Fentanyl Citrate 2,000 mcg in 100 mls @ 7.85 mls/hr 03/26/19 12:00 04/02/19 05:40 Fentanyl Drip Premix IV 3 mcg/kg/hr TITR PAOLO 23.55 mls/hr Administration Protocol 1 MCG/KG/HR Cefepime HCl 2 gm in 100 mls @ 200 mls/hr 03/27/19 14:00 04/01/19 14:29 Maxipime/Ns 2 Gm/100 Ml IV 200 mls/hr Q24H PAOLO Administration Protocol Norepinephrine 4 mg in 250 mls @ 7.5 mls/hr 03/27/19 22:16 04/02/19 02:24 Levophed Drip 4 Mg/Ns 250 Ml IV 6 mcg/min TITR PAOLO 22.5 mls/hr Administration Protocol 2 MCG/MIN Pantoprazole Sodium 80 mg/ 100 mls @ 10 mls/hr 03/28/19 09:30 04/01/19 21:26 Sodium Chloride IV 8 mg/hr DIRECT PAOLO 10 mls/hr Administration 8 MG/HR Vasopressin 20 unit/ Sodium 101 mls @ 9.09 mls/hr 03/28/19 09:00 03/28/19 15:38 Chloride IV 0 units/min TITR PAOLO 0 mls/hr Titration Protocol 0.03 UNITS/MIN Sodium Chloride 100 mls @ 999 mls/hr 03/29/19 15:30 Nacl 0.9% IV NEYMAR PRN Hypotension Amiodarone HCl 900 mg/ 500 mls @ 33.333 mls/hr 03/30/19 13:00 04/02/19 04:26 Dextrose IV 1 mg/min DIRECT PAOLO 33.333 mls/hr Administration Protocol 1 MG/MIN Sodium Chloride 100 mls @ 999 mls/hr 03/31/19 10:15 Nacl 0.9% IV NEYMAR PRN Hypotension Lorazepam 2 mg 03/26/19 11:54 04/02/19 05:42 Ativan IV 2 mg Q1H PRN Administration Agitation Metoclopramide HCl 2.5 mg 04/01/19 22:00 04/02/19 05:42 Reglan IV 2.5 mg Q8HR PAOLO Administration Metoprolol Tartrate 25 mg 03/28/19 14:00 04/01/19 20:54 Lopressor PO Not Given TID PAOLO Multi-Ingred Cream/Lotion/Oil/Oint 1 applic 03/16/19 15:50 03/19/19 20:10 Artificial Tears Ophth Oint OU 1 applic Q4HR PRN Administration Dry Eye(s) Ondansetron HCl 4 mg 03/16/19 22:21 Zofran IV Q8H PRN Nausea And Vomiting Paricalcitol 2 mcg 03/30/19 10:00 04/01/19 10:37 Zemplar IV 2 mcg DAILY PAOLO Administration Simple Syrup 15 ml 03/17/19 14:45 03/26/19 23:19 Simple Syrup FEEDTUBE 15 ml PRN PRN Administration Hypoglycemia Simple Syrup 30 ml 03/17/19 14:45 Simple Syrup FEEDTUBE PRN PRN Hypoglycemia Sodium Bicarbonate 325 mg 03/17/19 14:45 Sodium Bicarbonate FEEDTUBE PRN PRN For Clogged Feeding Tube Nutrition/Malnutrition Assess - Dietary Evaluation Nutrition/Malnutrition Findings: Nutrition Notes Start: 03/17/19 14:22 Freq: Status: Active Protocol: Document 03/29/19 13:35 AIYANA (Rec: 03/29/19 14:13 AIYANA [email or web address]) Co-Sign 03/29/19 13:35 HEBERT Nutrition Notes Initial or Follow up Reassessment Current Diagnosis Acute Kidney Injury Other Pertinent Diagnosis on HD, Septic shock,Multiple organ failure, encephalopathy, rhabdomyolysis Current Diet Nepro with Carbsteady at 55ml/ hr Labs/Tests Na 133 Cl 93.8 BUN 109 Cr 7.4 Pertinent Medications Vasopressin Height 6 ft Weight 157.3 kg Edgar Body Weight (kg) 80.90 BMI 47.0 Subjective/Other Information F/U for TF tolerance at goal rate. Pt TF was stopped due to GI bleed Percent of energy/protein needs met: 0%/0% Burn Absent Trauma Absent Minimum of two criteria No #1 Nutrition Diagnosis Inadequate oral intake Diagnosis Progress(for reassessment Continues documentation) Is patient on ventilator? Yes Is Patient Ambulatory and/or Out of Bed No REE-([facility]-confined to bed) 2997.636 Kcal/Kg value to use for calculation 14 Approximate Energy Requirements Using 2202 kcal/Kg Calculation Used for Recommendations Kcal/kg Additional Notes Protein Needs: 202g (2.5g/kg IBW 80.9) Fluid Needs: 1 ml/kcal or per MD Nutrition Intervention Change Diet Order: Advance diet when medically feasible Nutrition Support: Nepro 1.8 at 55 ml/hr Flush 100 ml q4hr for hyponatremia Kcal 2,376 Protein (gm) 107 Fluid (mL) 960 Goal #1 TF restart when medically feasible Anticipated Discharge Needs: Unable to determine at this time Follow-Up By: 04/02/19 Additional Comments F/U for TF restart, POC
--- NOTE | 2019-04-02 10:12 | Progress Note ---
Assessment and Plan 1. Acute kidney injury: Vasomotor RUBEN in the setting of shock / volume depletion / Rhabdo. Baseline renal function is unknown. CT abdomen was negative for obstructive nephropathy. Monitor renal function. Renal prognosis is guarded. Avoid nephrotoxic agents. Meds dosage based on GFR. Patient was started on hemodialysis on 03/18/19 due to worsening metabolic acidosis and hyperkalemia. Hemodialysis: 03/18, 03/19, 03/20, 03/22, 03/23, 03/24, 03/26, 03/28, 03/29, 03/31, 04/02. 2. FEN: Hyperkalemia, improved. Hyponatremia, improved. Metabolic acidosis, on maintenance HD. Volume overload, UF with HD as tolerated. Hypocalcemia, likely multifactorial. On Phoslo and Zemplar. Monitor lytes. 3. Septic shock: Followed by ID. Currently on Levophed. 4. Rhabdomyolysis: CK level improving. 5. SVT / V.tach: Followed by Cards. 6. Respiratory failure: On vent. 7. Severe anemia: S/p PRBC. On Epogen. 8. Elevated transaminases. 9. Encephalopathy. Examination: General appearance: well-developed, appears stated age, obese, intubated, on vent HEENT: Atraumatic EYES: Pupils reacting to light Neck: supple Respiratory: coarse breath sounds Cardiology: regular, S1S2 heard, no murmur Gastrointestinal: no tenderness, obese, BS heard Integumentary: no rash noted Neurologic: opens eyes Ext: 1+ edema of all 4 extremities Hemodialysis access: R IJ temp catheter Subjective Date of service: 04/02/19 Principal diagnosis: anemia Interval history: Patient was seen and examined at the bedside. Remain on the vent. Objective - Vital Signs Vital signs: Vital Signs - 12hr 04/01/19 04/01/19 04/01/19 22:15 22:30 22:45 Temperature Pulse Rate 79 80 78 Pulse Rate [ From Monitor] Respiratory 20 20 20 Rate Blood Pressure 121/45 112/40 120/44 O2 Sat by Pulse 99 99 99 Oximetry 04/01/19 04/01/19 04/01/19 23:00 23:15 23:30 Temperature Pulse Rate 78 78 79 Pulse Rate [ From Monitor] Respiratory 21 19 20 Rate Blood Pressure 120/44 120/46 122/46 O2 Sat by Pulse 99 100 100 Oximetry 04/01/19 04/02/19 04/02/19 23:45 00:00 00:15 Temperature 100.4 F H Pulse Rate 78 84 83 Pulse Rate [ From Monitor] Respiratory 19 19 20 Rate Blood Pressure 119/46 131/52 133/52 O2 Sat by Pulse 100 99 100 Oximetry 04/02/19 04/02/19 04/02/19 00:17 00:30 00:45 Temperature Pulse Rate 84 82 81 Pulse Rate [ From Monitor] Respiratory 20 20 Rate Blood Pressure 125/49 124/48 O2 Sat by Pulse 100 99 Oximetry 04/02/19 04/02/19 04/02/19 01:00 01:15 01:30 Temperature Pulse Rate 82 82 82 Pulse Rate [ From Monitor] Respiratory 22 20 20 Rate Blood Pressure 126/48 125/48 129/49 O2 Sat by Pulse 99 99 99 Oximetry 04/02/19 04/02/19 04/02/19 01:45 02:00 02:15 Temperature Pulse Rate 83 82 84 Pulse Rate [ From Monitor] Respiratory 20 20 20 Rate Blood Pressure 124/48 128/48 131/51 O2 Sat by Pulse 99 99 99 Oximetry 04/02/19 04/02/19 04/02/19 02:30 02:45 03:00 Temperature Pulse Rate 83 87 88 Pulse Rate [ From Monitor] Respiratory 20 20 20 Rate Blood Pressure 123/49 135/53 129/56 O2 Sat by Pulse 98 99 98 Oximetry 04/02/19 04/02/19 04/02/19 03:15 03:31 03:42 Temperature Pulse Rate 104 H 159 H Pulse Rate [ From Monitor] Respiratory 17 12 Rate Blood Pressure 129/56 122/70 O2 Sat by Pulse 96 95 95 Oximetry 04/02/19 04/02/19 04/02/19 03:45 04:00 04:15 Temperature 100.9 F H Pulse Rate 150 H 118 H 140 H Pulse Rate [ From Monitor] Respiratory 22 20 21 Rate Blood Pressure 122/70 118/53 105/51 O2 Sat by Pulse 95 96 97 Oximetry 04/02/19 04/02/19 04/02/19 04:30 04:45 05:01 Temperature Pulse Rate 147 H 131 H 130 H Pulse Rate [ From Monitor] Respiratory 21 20 20 Rate Blood Pressure 118/57 109/58 109/58 O2 Sat by Pulse 97 98 98 Oximetry 04/02/19 04/02/19 04/02/19 05:15 05:30 05:45 Temperature Pulse Rate 131 H 133 H 127 H Pulse Rate [ From Monitor] Respiratory 20 19 22 Rate Blood Pressure 118/49 113/50 114/54 O2 Sat by Pulse 98 99 99 Oximetry 04/02/19 04/02/19 04/02/19 06:01 06:15 06:31 Temperature Pulse Rate 128 H 135 H 127 H Pulse Rate [ From Monitor] Respiratory 19 23 19 Rate Blood Pressure 107/50 114/45 95/48 O2 Sat by Pulse 99 99 99 Oximetry 04/02/19 04/02/19 04/02/19 06:45 07:00 07:15 Temperature Pulse Rate 137 H 126 H 125 H Pulse Rate [ From Monitor] Respiratory 20 20 21 Rate Blood Pressure 95/49 92/45 94/43 O2 Sat by Pulse 100 100 100 Oximetry 04/02/19 04/02/19 04/02/19 07:30 07:45 08:00 Temperature 100.9 F H Pulse Rate 126 H 133 H 134 H Pulse Rate [ 135 H From Monitor] Respiratory 19 19 25 H Rate Blood Pressure 80/47 106/55 98/52 O2 Sat by Pulse 100 100 99 Oximetry 04/02/19 04/02/19 04/02/19 08:15 08:30 08:45 Temperature Pulse Rate 130 H 126 H 135 H Pulse Rate [ From Monitor] Respiratory 20 20 20 Rate Blood Pressure 125/48 113/53 112/56 O2 Sat by Pulse 100 99 99 Oximetry 04/02/19 09:01 Temperature Pulse Rate 145 H Pulse Rate [ From Monitor] Respiratory 20 Rate Blood Pressure 112/47 O2 Sat by Pulse 100 Oximetry - Lab 04/02/19 05:03 04/02/19 05:03 Most recent lab results ABG pH 7.326 pH Units (7.350-7.450) L 03/26/19 04:30 ABG pCO2 36.4 mm Hg 03/26/19 04:30 ABG pO2 137.4 mm Hg (80.0-90.0) H 03/26/19 04:30 ABG HCO3 18.6 mmol/L (20.0-26.0) L 03/26/19 04:30 ABG O2 Saturation 98.6 % (95.0-99.0) 03/26/19 04:30 Calcium 6.5 mg/dL (8.4-10.2) L D 04/01/19 04:27 Phosphorus 7.30 mg/dL (2.5-4.5) H 04/01/19 04:27 Magnesium 1.90 mg/dL (1.7-2.3) 03/31/19 15:07 Urine Creatinine 106.6 mg/dL (0.1-20.0) H 03/17/19 16:05 Urine Sodium 95 mmol/L 03/17/19 16:05 Medications & Allergies - Medications Allergies/Adverse Reactions: Allergies No Known Allergies Allergy (Unverified 03/16/19 17:17) Home Medications: Home Medications Medication Instructions Recorded Confirmed Last Taken Type Unobtainable 03/18/19 03/18/19 Unknown History Active Medications: Generic Name Dose Route Start Last Admin Trade Name Freq PRN Reason Stop Dose Admin Acetaminophen 650 mg 03/29/19 19:51 03/31/19 08:39 Tylenol MO 650 mg Q4H PRN Administration Fever > 100.5 Albuterol 2.5 mg 03/29/19 13:08 Proventil IH Q4HRT PRN Shortness Of Breath Lipase/Protease/Amylase 1 each 03/17/19 14:[address] 10,500 Unit FEEDTUBE PRN PRN For Clogged Feeding Tube Calcium Acetate 1,334 mg 03/31/19 14:00 04/01/19 21:25 Phoslo PO 1,334 mg TID PAOLO Administration Dextrose 50 gm 03/19/19 18:39 03/26/19 23:26 D50w (25gm) Vial IV 50 gm PRN PRN Administration Hypoglycemia Epoetin Jet 20,000 unit 03/31/19 10:15 03/31/19 20:09 Procrit SUB-Q 20,000 unit NEYMAR PRN Administration hemodialysis Fentanyl 50 mcg 03/26/19 12:00 04/01/19 09:47 Sublimaze IV 50 mcg Q1H PRN Administration Pain, Moderate (4-6) Hydrophilic Ointment 1 applic 03/16/19 15:50 Vaseline Lip Therapy TP Q2HR PRN Dry Lips Phenylephrine HCl 100 mg/ 100 mls @ 3 mls/hr 03/17/19 02:30 03/19/19 18:48 Sodium Chloride IV Infused TITR PAOLO Titration Protocol 50 MCG/MIN Fentanyl Citrate 2,000 mcg in 100 mls @ 7.85 mls/hr 03/26/19 12:00 04/02/19 05:40 Fentanyl Drip Premix IV 3 mcg/kg/hr TITR PAOLO 23.55 mls/hr Administration Protocol 1 MCG/KG/HR Cefepime HCl 2 gm in 100 mls @ 200 mls/hr 03/27/19 14:00 04/01/19 14:29 Maxipime/Ns 2 Gm/100 Ml IV 200 mls/hr Q24H PAOLO Administration Protocol Norepinephrine 4 mg in 250 mls @ 7.5 mls/hr 03/27/19 22:16 04/02/19 02:24 Levophed Drip 4 Mg/Ns 250 Ml IV 6 mcg/min TITR PAOLO 22.5 mls/hr Administration Protocol 2 MCG/MIN Vasopressin 20 unit/ Sodium 101 mls @ 9.09 mls/hr 03/28/19 09:00 03/28/19 15:38 Chloride IV 0 units/min TITR PAOLO 0 mls/hr Titration Protocol 0.03 UNITS/MIN Sodium Chloride 100 mls @ 999 mls/hr 03/29/19 15:30 Nacl 0.9% IV NEYMAR PRN Hypotension Amiodarone HCl 900 mg/ 500 mls @ 33.333 mls/hr 03/30/19 13:00 04/02/19 04:26 Dextrose IV 1 mg/min DIRECT PAOLO 33.333 mls/hr Administration Protocol 1 MG/MIN Sodium Chloride 100 mls @ 999 mls/hr 03/31/19 10:15 Nacl 0.9% IV NEYMAR PRN Hypotension Lorazepam 2 mg 03/26/19 11:54 04/02/19 05:42 Ativan IV 2 mg Q1H PRN Administration Agitation Metoclopramide HCl 2.5 mg 04/01/19 22:00 04/02/19 05:42 Reglan IV 2.5 mg Q8HR PAOLO Administration Metoprolol Tartrate 25 mg 03/28/19 14:00 04/01/19 20:54 Lopressor PO Not Given TID PAOLO Multi-Ingred Cream/Lotion/Oil/Oint 1 applic 03/16/19 15:50 03/19/19 20:10 Artificial Tears Ophth Oint OU 1 applic Q4HR PRN Administration Dry Eye(s) Ondansetron HCl 4 mg 03/16/19 22:21 Zofran IV Q8H PRN Nausea And Vomiting Pantoprazole Sodium 40 mg 04/02/19 22:00 Protonix IV BID PAOLO Paricalcitol 2 mcg 03/30/19 10:00 04/01/19 10:37 Zemplar IV 2 mcg DAILY PAOLO Administration Simple Syrup 15 ml 03/17/19 14:45 03/26/19 23:19 Simple Syrup FEEDTUBE 15 ml PRN PRN Administration Hypoglycemia Simple Syrup 30 ml 03/17/19 14:45 Simple Syrup FEEDTUBE PRN PRN Hypoglycemia Sodium Bicarbonate 325 mg 03/17/19 14:45 Sodium Bicarbonate FEEDTUBE PRN PRN For Clogged Feeding Tube
[2019-04-02] MEDS: METOPROLOL TARTRATE 25 MG TAB PO SCH ×3 (10:19→21:10)
[2019-04-02] MEDS: CALCIUM ACETATE 667 MG CAP PO SCH ×3 (10:19→21:10)
[2019-04-02 11:04] LABS: Calcium 6.7 mg/dL (8.4-10.2)
--- NOTE | 2019-04-02 11:12 | Progress Note ---
Assessment and Plan Cont present cardiac management. He continues to require multiple vasopressors. He remains strict NPO status. No systemic AC regarding AFib in setting of anemia, thrombocytopenia, GI bleed. Continue supportive measures. Can consider ischemic evaluation if/when medically stabilized. Overall guarded prognosis. The patient has been seen in conjunction with Dr. Taylor who agrees with the assessment and plan of care. - Patient Problems (1) Cardiopulmonary arrest Current Visit: Yes Status: Acute (2) Acute respiratory failure Current Visit: Yes Status: Acute (3) Paroxysmal atrial fibrillation with RVR Current Visit: Yes Status: Acute (4) SVT (supraventricular tachycardia) Current Visit: Yes Status: Resolved (5) Torsades de pointes Current Visit: Yes Status: Acute (6) Ventricular tachycardia Current Visit: Yes Status: Acute (7) Encephalopathy Current Visit: Yes Status: Acute (8) Septic shock Current Visit: Yes Status: Acute (9) Aspiration pneumonia Current Visit: Yes Status: Acute (10) Meningitis Current Visit: Yes Status: Suspected (11) Cellulitis Current Visit: Yes Status: Acute (12) Acute renal failure Current Visit: Yes Status: Acute (13) GI bleed Current Visit: Yes Status: Acute (14) Anemia Current Visit: Yes Status: Acute (15) Thrombocytopenia Current Visit: Yes Status: Acute (16) DVT (deep venous thrombosis) Current Visit: Yes Status: Acute Plan to address problem: Nonocclusive thrombus in right internal jugular vein. S/p heparin gtt. Subjective Date of service: 04/02/19 Principal diagnosis: anemia Interval history: pt remains intubated, moving arms and legs, no purposeful response noted, sedated, on levophed and vaso. in AFib with RVR. amio gtt infusing. no family at bedside. Objective Last Vital Signs Temp 100.9 F H 04/02/19 08:00 Pulse 132 H 04/02/19 11:00 Resp 18 04/02/19 11:00 BP 115/53 04/02/19 11:00 Pulse Ox 99 04/02/19 11:00 - Physical Examination General: Other (intubated, sedated) HEENT: Positive: PERRL Neck: Positive: neck supple Cardiac: Positive: irregularly irregular, S1/S2, Tachycardia Lungs: Positive: Oxygen, Ventilated Respirations Neuro: Positive: Other (intubated) Abdomen: Positive: Unremarkable /Rectal: Other (deferred) Skin: Positive: Clear Musculoskeletal: Decreased Range of Motion Extremities: Present: lower extr. pulses (weak, thready ) - Labs and Meds CBC 04/02/19 Range/Units 05:03 WBC 7.6 (4.5-11.0) K/mm3 RBC 2.36 L (3.65-5.03) M/mm3 Hgb 7.2 L (11.8-15.2) gm/dl Hct 21.9 L (35.5-45.6) % Plt Count 201 (140-440) K/mm3 Lymph # 0.8 L (1.2-5.4) K/mm3 Burt # 0.5 (0.0-0.8) K/mm3 Eos # 0.2 (0.0-0.4) K/mm3 Baso # 0.0 (0.0-0.1) K/mm3 Comprehensive Metabolic Panel 04/02/19 Range/Units 05:03 Sodium 136 L (137-145) mmol/L Potassium 4.7 (3.6-5.0) mmol/L Chloride 97.8 L (98-107) mmol/L Carbon Dioxide 18 L (22-30) mmol/L BUN 82 H (9-20) mg/dL Creatinine 8.2 H (0.8-1.5) mg/dL Glucose 94 (75-100) mg/dL Calcium 6.7 L (8.4-10.2) mg/dL - Imaging and Cardiology Echo: report reviewed ( EF 40-45%, impaired relaxation. ) - Telemetry EKG Rhythm: Atrial Fibrillation - Allied health notes Allied health notes reviewed: nursing
[2019-04-02] MEDS: PARICALCITOL 2 MCG/1 ML INJ IV SCH (11:14)
[2019-04-02] MEDS ORDERED: SODIUM CHLORIDE 0.9% 100 ML IV PRN (11:19)
[2019-04-02 12:34] LABS: Hematocrit 22.6 % (35.5-45.6); Hemoglobin 7.4 gm/dl (11.8-15.2)
--- NOTE | 2019-04-02 12:46 | Progress Note ---
Assessment and Plan Cultures: 03/16/2019 sputum: salivary contamination 03/16/2019 Blood culture: no growth 03/17/2019 Urine culture no growth 03/17/2019 throat culture: no growth 03/26/2019 Blood culture: no growth so far 03/27/2019 Blood culture negative. Assessment: 43y/o male with possible psych history admitted on 03/16/2019 with: 1) Septic shock: pressors requirement is down. Only on one pressor. On amio gtt. Placed on multiple pressors on 03/28 due to acute GI bleed and severe Hg drop at 4.4. Noted fever 105 after right IJ exchanged overwire on 03/27, fever is better; leukocytosis improving. Fever source is unclear - suspect IJ DVT ?thrombophlebitis, other ?NMS ?sinusitis, ?drug fever. Repeat blood culture no growth so far. Brain MRI shows no acute intracranial abnormality, mild non specific chronic white matter changes, fluid throughout the sinuses and mastoid air cells. Venous US + right IJ DVT. Initial septic shock - Possible Infectious etiology v/s possibility of Neuroleptic Malignant Syndrome given psych history, high fever of 105F and extremely elevated CPK of >100K. Unclear if he was on any psych med. From ID standpoint, we will continue broad coverage for acute bacterial meningitis, tick borne illness, aspiration pneumonia. Blood culture negative UA with mild pyuria. HIV rapid negative. Strep A rapid ag negative. No obvious infectious source identified yet. 2) Probable aspiration pneumonia: Already completed adequate abx. 3) Acute respiratory failure: on the vent. Improving. 4) ?Right axillary edema: no abscess, US no collection seen 5) Acute encephalopathy: improving, communicating today heavily sedated. CT head showed diffuse cerebral edema ?artifact. But too unstable for LP at this time. Low suspicion for HSV meningoencephalitis given the degree of his initial shock and clinical status. Given nationwide acyclovir shortage and low suspicion, would not recommend IV Ganciclovir at this time. 6) Acute renal failure: renally dosing all abx, now on HD 7) Elevated LFTs/shock liver: also likely elevated from Rhabdomyolysis. Viral hepatitis panel negative. LFTs continue to improve. 8) Thrombocytopenia: multifactorial - better 9) Rhabdomyolysis: CK continues to improve 10) ?Enteritis: per CT ? no collection no perforation no obvious ischemic bowel. Gen. Surg following Recommendations: continue cefepime renally adjusted for now 5-7 days from 03/27 Wound care team consult - multiple skin abrasions Will follow. Katie Palmer MD [facility] ([facility]) M: [phone] O: [phone] F: [phone] Subjective Date of service: 04/02/19 Principal diagnosis: anemia Interval history: Febrile to 100.9 with a normal white count. No new issues. Objective - Exam Narrative Exam: General appearance: alert intubated opening eyes following commands Eyes: pupils dannie contracted poorly reactive, no jaundice HENT: Atraumatic; oropharynx with ETT/OGT Neck: no JVD Lungs:distant BS CV: RRR Abdomen: Soft, non-tender Extremities: marked dannie leg edema/arm edema Skin:no rash, +scrotal edema Psych: follows commands no agitated Neuro: follows commands no agitated Right IJ cath - Constitutional Vitals: Vital Signs Temp Pulse Resp BP Pulse Ox 100.9 F H 126 H 20 103/52 97 04/02/19 08:00 04/02/19 12:30 04/02/19 12:30 04/02/19 12:30 04/02/19 12:30 Temperature -Last 24 Hours Temperature 100.9 F Temperature 100.9 F Temperature 100.4 F Temperature 99.9 F Temperature 100.8 F - Labs CBC & Chem 7: 04/02/19 12:15 04/02/19 05:03 Labs: Abnormal lab results 03/30/19 04/01/19 04/01/19 Range/Units 12:09 18:37 21:28 RBC (3.65-5.03) M/mm3 Hgb (11.8-15.2) gm/dl Hct (35.5-45.6) % RDW (13.2-15.2) % Lymph % (Auto) (13.4-35.0) % Lymph # (1.2-5.4) K/mm3 Seg Neutrophils % (40.0-70.0) % POC ABG pH 7.299 L (7.35-7.45) POC ABG pCO2 48.2 H (35-45) POC ABG pO2 133 H (80-105) Sodium (137-145) mmol/L Chloride (98-107) mmol/L Carbon Dioxide (22-30) mmol/L BUN (9-20) mg/dL Creatinine (0.8-1.5) mg/dL POC Glucose 119 H (70-105) Calcium (8.4-10.2) mg/dL Ionized Calcium 3.7 L (4.8-5.6) mg/dL Phosphorus (2.5-4.5) mg/dL Iron (49-181) ug/dL TIBC (250-450) mcg/dL Ferritin (13.0-400.0) ng/mL 04/02/19 04/02/19 04/02/19 Range/Units 04:40 05:03 05:03 RBC 2.36 L (3.65-5.03) M/mm3 Hgb 7.2 L (11.8-15.2) gm/dl Hct 21.9 L (35.5-45.6) % RDW 16.0 H (13.2-15.2) % Lymph % (Auto) 10.8 L (13.4-35.0) % Lymph # 0.8 L (1.2-5.4) K/mm3 Seg Neutrophils % 80.3 H (40.0-70.0) % POC ABG pH 7.300 L (7.35-7.45) POC ABG pCO2 45.2 H (35-45) POC ABG pO2 107 H (80-105) Sodium 136 L (137-145) mmol/L Chloride 97.8 L (98-107) mmol/L Carbon Dioxide 18 L (22-30) mmol/L BUN 82 H (9-20) mg/dL Creatinine 8.2 H (0.8-1.5) mg/dL POC Glucose (70-105) Calcium 6.7 L (8.4-10.2) mg/dL Ionized Calcium (4.8-5.6) mg/dL Phosphorus 7.50 H (2.5-4.5) mg/dL Iron 26 L (49-181) ug/dL TIBC 138 L (250-450) mcg/dL Ferritin (13.0-400.0) ng/mL 04/02/19 04/02/19 Range/Units 05:03 12:15 RBC (3.65-5.03) M/mm3 Hgb 7.4 L (11.8-15.2) gm/dl Hct 22.6 L (35.5-45.6) % RDW (13.2-15.2) % Lymph % (Auto) (13.4-35.0) % Lymph # (1.2-5.4) K/mm3 Seg Neutrophils % (40.0-70.0) % POC ABG pH (7.35-7.45) POC ABG pCO2 (35-45) POC ABG pO2 (80-105) Sodium (137-145) mmol/L Chloride (98-107) mmol/L Carbon Dioxide (22-30) mmol/L BUN (9-20) mg/dL Creatinine (0.8-1.5) mg/dL POC Glucose (70-105) Calcium (8.4-10.2) mg/dL Ionized Calcium (4.8-5.6) mg/dL Phosphorus (2.5-4.5) mg/dL Iron (49-181) ug/dL TIBC (250-450) mcg/dL Ferritin 607.0 H (13.0-400.0) ng/mL
[2019-04-02] MEDS ORDERED: SODIUM CHLORIDE 0.9% 500 ML 500 ML IV NR (12:51)
[2019-04-02] MEDS: VASOPRESSIN 20 UNIT in SODIUM CHLORIDE 0.9% 100 ML IV SCH ×2 (13:17→23:10)
--- NOTE | 2019-04-02 13:26 | Progress Note ---
Assessment and Plan Severe sepsis with shock. Right axilla abscess versus localized pannus/fatty collection. Acute hypoxemic respiratory failure, on mechanical ventilator support. Likely aspiration pneumonia, bilateral. Morbid obesity. Rhabdomyolysis. Acute kidney injury. Leukocytosis. Morbid obesity. Metabolic acidosis. Lactic acidosis. Hypomagnesemia. Elevated serum transaminases/possible shock liver. Acute encephalopathy, toxic metabolic versus anoxic (Had a long discussion with his brother Joshua and they have decided to make him a DNR) - continue low dose Reglan - continue prn albuterol treatments - continue set rate on MVS at 16/min - repeat ABG at 9 pm tonight - prn tylenol suppositories for fevers - keep on PRVC/AC for now - continue to wean FiO2 for sats > 90% - continue to wean Levophed for target MAP > 65 mmHg - continue amiodarone drip for A-fib - continue HD/UF per nephrology prescription - VAP bundle addressed - continue daily SAT's and SBT assessment as tolerated - target sedation for RASS 0 to -1 - prn analgesia per CPOT score - continue HD/UF per nephrology prescription and for toxin and volume control - prn supportive blood transfusions to keep serum Hb > 7.0 - Monitor hemodynamics closely - Transfuse PRBC's to keep HgB > 7g/dL - continue empiric broad spectrum antiinfective's per ID recommendations (de- escalate based on clinical and microbiologic data) - continue mobility protocols and off loading as tolerated for pressure ulcer prophylaxis - continue to avoid nephrotoxins, adjust all medications for GFR and CRCL - continue GI & VTE prophylaxis with - accuchecks with glycemic control per SSI for target BG of 140-180 mg/dl acutely - continue other care per attending / other consultants ... re-evaluate in am & prn CONDITION: CRITICAL PROGNOSIS: VERY GUARDED CODE STATUS: FULL CODE Discussed extensively with RT/RN and care team in ICU IDT rounds The high probability of a clinically significant, sudden or life threatening deterioration of the [respiratory, renal and Cardiac] system's' required my full and direct attention, intervention and personal management. The aggregate critical care time was 32 minutes. This time is in addition to time spent performing reported procedures but includes the following: [x] Data Review and interpretation [x] Patient assessment and monitoring of vital signs [x] Documentation [x] Medication orders and management Subjective Date of service: 04/02/19 Principal diagnosis: Septic Shock; Ac. hypoxemic resp failure; Renzo. PNA; Rhabdomyolysis; RUBEN Interval history: Patient is seen today for: Severe sepsis with shock; Acute hypoxemic respiratory failure; Aspiration pneumonia; Morbid obesity; Rhabdomyolysis; Acute kidney injury; Morbid obesity; Elevated serum transaminases/possible shock liver; Acute encephalopathy (Toxic/Met) Seen and examined at bedside; 24hour events reviewed; nursing and respiratory c are staff consulted; no adverse overnight events reported to me; resting peacefully in bed; remains on MVS; oxygenation better; no gross GI re-bleeding but large melena type BM noted; no emesis or overt aspiration; relatively appropriate during sedation vacations Objective Vital Signs - 12hr 04/02/19 04/02/19 04/02/19 01:30 01:45 02:00 Temperature Pulse Rate 82 83 82 Pulse Rate [ From Monitor] Respiratory 20 20 20 Rate Blood Pressure 129/49 124/48 128/48 O2 Sat by Pulse 99 99 99 Oximetry 04/02/19 04/02/19 04/02/19 02:15 02:30 02:45 Temperature Pulse Rate 84 83 87 Pulse Rate [ From Monitor] Respiratory 20 20 20 Rate Blood Pressure 131/51 123/49 135/53 O2 Sat by Pulse 99 98 99 Oximetry 04/02/19 04/02/19 04/02/19 03:00 03:15 03:31 Temperature Pulse Rate 88 104 H 159 H Pulse Rate [ From Monitor] Respiratory 20 17 12 Rate Blood Pressure 129/56 129/56 122/70 O2 Sat by Pulse 98 96 95 Oximetry 04/02/19 04/02/19 04/02/19 03:42 03:45 04:00 Temperature 100.9 F H Pulse Rate 150 H 118 H Pulse Rate [ From Monitor] Respiratory 22 20 Rate Blood Pressure 122/70 118/53 O2 Sat by Pulse 95 95 96 Oximetry 04/02/19 04/02/19 04/02/19 04:15 04:30 04:45 Temperature Pulse Rate 140 H 147 H 131 H Pulse Rate [ From Monitor] Respiratory 21 21 20 Rate Blood Pressure 105/51 118/57 109/58 O2 Sat by Pulse 97 97 98 Oximetry 04/02/19 04/02/19 04/02/19 05:01 05:15 05:30 Temperature Pulse Rate 130 H 131 H 133 H Pulse Rate [ From Monitor] Respiratory 20 20 19 Rate Blood Pressure 109/58 118/49 113/50 O2 Sat by Pulse 98 98 99 Oximetry 04/02/19 04/02/19 04/02/19 05:45 06:01 06:15 Temperature Pulse Rate 127 H 128 H 135 H Pulse Rate [ From Monitor] Respiratory 22 19 23 Rate Blood Pressure 114/54 107/50 114/45 O2 Sat by Pulse 99 99 99 Oximetry 04/02/19 04/02/19 04/02/19 06:31 06:45 07:00 Temperature Pulse Rate 127 H 137 H 126 H Pulse Rate [ From Monitor] Respiratory 19 20 20 Rate Blood Pressure 95/48 95/49 92/45 O2 Sat by Pulse 99 100 100 Oximetry 04/02/19 04/02/19 04/02/19 07:15 07:30 07:45 Temperature Pulse Rate 125 H 126 H 133 H Pulse Rate [ From Monitor] Respiratory 21 19 19 Rate Blood Pressure 94/43 80/47 106/55 O2 Sat by Pulse 100 100 100 Oximetry 04/02/19 04/02/19 04/02/19 08:00 08:15 08:30 Temperature 100.9 F H Pulse Rate 134 H 130 H 126 H Pulse Rate [ 135 H From Monitor] Respiratory 25 H 20 20 Rate Blood Pressure 98/52 125/48 113/53 O2 Sat by Pulse 99 100 99 Oximetry 04/02/19 04/02/19 04/02/19 08:45 09:01 09:15 Temperature Pulse Rate 135 H 145 H 135 H Pulse Rate [ From Monitor] Respiratory 20 20 18 Rate Blood Pressure 112/56 112/47 118/50 O2 Sat by Pulse 99 100 100 Oximetry 04/02/19 04/02/19 04/02/19 09:31 09:45 10:00 Temperature Pulse Rate 123 H 134 H 122 H Pulse Rate [ From Monitor] Respiratory 20 17 20 Rate Blood Pressure 98/52 98/52 106/49 O2 Sat by Pulse 99 100 100 Oximetry 04/02/19 04/02/19 04/02/19 10:15 10:30 10:45 Temperature Pulse Rate 135 H 130 H 116 H Pulse Rate [ From Monitor] Respiratory 20 19 17 Rate Blood Pressure 113/53 104/50 106/47 O2 Sat by Pulse 100 99 99 Oximetry 04/02/19 04/02/1919 11:00 11:15 11:31 Temperature Pulse Rate 132 H 143 H 120 H Pulse Rate [ From Monitor] Respiratory 18 19 19 Rate Blood Pressure 115/53 108/54 115/53 O2 Sat by Pulse 99 99 98 Oximetry 04/02/19 04/02/19 04/02/19 11:45 12:00 12:15 Temperature Pulse Rate 136 H 138 H 143 H Pulse Rate [ From Monitor] Respiratory 20 20 17 Rate Blood Pressure 142/76 88/37 104/53 O2 Sat by Pulse 98 97 98 Oximetry 04/02/19 12:30 Temperature Pulse Rate 126 H Pulse Rate [ From Monitor] Respiratory 20 Rate Blood Pressure 103/52 O2 Sat by Pulse 97 Oximetry Constitutional: no acute distress, other (middle aged morbidly obese CM, normocephalic with incresed respiratory effort on MVS) Eyes: icteric ENT: oropharynx moist, other (ETT 23-24 cm PEDRO, ulcers over his upper lip) Neck: supple, no lymphadenopathy, no JVD, other (large neck circumference) Effort: mildly labored Ascultation: Bilateral: diminished breath sounds, rales Percussion: Bilateral: not dull Cardiovascular: regular rate and rhythm, other ( S1,S2) Gastrointestinal: hypoactive bowel sounds, soft, non-tender, non-distended, other (obese) Integumentary: normal, other (blisters with some weeping over the extremities) Extremities: no cyanosis, pink and warm, pulses normal, no ischemia or petechiae Neurologic: normal mental status, non-focal exam (grossly), pupils equal and round, CN II-XII normal, other (obeys simple commands when SAT was done) Psychiatric: mood appropriate, affect normal CBC and BMP: 04/03/19 04:25 04/03/19 08:30 ABG, PT/INR, D-dimer: ABG POC ABG pH 7.300 (7.35-7.45) L 04/02/19 04:40 ABG pH 7.326 pH Units (7.350-7.450) L 03/26/19 04:30 POC ABG pCO2 45.2 (35-45) H 04/02/19 04:40 ABG pCO2 36.4 mm Hg 03/26/19 04:30 POC ABG pO2 107 (80-105) H 04/02/19 04:40 ABG pO2 137.4 mm Hg (80.0-90.0) H 03/26/19 04:30 POC ABG HCO3 22.2 (22-26 mml/L) 04/02/19 04:40 POC ABG Total CO2 24 (23-27mmol/L) 04/02/19 04:40 POC ABG O2 Sat 98 04/02/19 04:40 ABG O2 Saturation 98.6 % (95.0-99.0) 03/26/19 04:30 PT/INR, D-dimer PT 15.3 Sec. (12.2-14.9) H 03/29/19 11:48 INR 1.24 (0.87-1.13) H 03/29/19 11:48 D-Dimer 4845.98 ng/mlDDU (0-234) H 03/28/19 12:00 Abnormal lab findings: Abnormal Labs 03/16/19 03/16/19 03/16/19 15:32 16:03 16:05 WBC 27.0 H RBC 5.55 H Hgb 15.7 H Hct 47.1 H RDW Plt Count 75 L Lymph % (Auto) Lymph # Seg Neutrophils % Seg Neuts % (Manual) 85.0 H Lymphocytes % (Manual) 2.0 L Monocytes % (Manual) Nucleated RBC % Seg Neutrophils # Seg Neutrophils # Man 23.0 H Lymphocytes # (Manual) 0.5 L Monocytes # (Manual) PT INR D-Dimer Heparin Anti-Xa Level POC ABG pH ABG pH POC ABG pCO2 POC ABG pO2 ABG pO2 ABG HCO3 ABG O2 Saturation ABG Base Excess ABG Hemoglobin Oxyhemoglobin Sodium 127 L Potassium Chloride 87.8 L Carbon Dioxide 17 L BUN 49 H Creatinine 5.8 H Glucose 150 H POC Glucose 118 H Lactic Acid Calcium 6.6 L Ionized Calcium Phosphorus Magnesium 1.10 L Iron TIBC Ferritin Total Bilirubin Direct Bilirubin AST ALT Alkaline Phosphatase Total Creatine Kinase 48947 H CK-MB (CK-2) Troponin T C-Reactive Protein Total Protein Albumin Triglycerides LDL Cholesterol Direct HDL Cholesterol Free T4 PTH Intact Urine WBC (Auto) Urine Creatinine Salicylates Acetaminophen Crossmatch 03/16/19 03/16/19 03/16/19 16:59 17:05 17:05 WBC RBC Hgb Hct RDW Plt Count Lymph % (Auto) Lymph # Seg Neutrophils % Seg Neuts % (Manual) Lymphocytes % (Manual) Monocytes % (Manual) Nucleated RBC % Seg Neutrophils # Seg Neutrophils # Man Lymphocytes # (Manual) Monocytes # (Manual) PT INR D-Dimer Heparin Anti-Xa Level POC ABG pH 7.297 L ABG pH POC ABG pCO2 33.0 L POC ABG pO2 ABG pO2 ABG HCO3 ABG O2 Saturation ABG Base Excess ABG Hemoglobin Oxyhemoglobin Sodium Potassium Chloride Carbon Dioxide BUN Creatinine Glucose POC Glucose Lactic Acid Calcium Ionized Calcium Phosphorus Magnesium Iron TIBC Ferritin Total Bilirubin Direct Bilirubin AST ALT Alkaline Phosphatase Total Creatine Kinase 02057 H CK-MB (CK-2) 83.1 H Troponin T C-Reactive Protein Total Protein Albumin Triglycerides LDL Cholesterol Direct HDL Cholesterol Free T4 0.72 L PTH Intact Urine WBC (Auto) Urine Creatinine Salicylates Acetaminophen Crossmatch 03/16/19 03/16/19 03/16/19 17:05 17:05 17:05 WBC RBC Hgb Hct RDW Plt Count Lymph % (Auto) Lymph # Seg Neutrophils % Seg Neuts % (Manual) Lymphocytes % (Manual) Monocytes % (Manual) Nucleated RBC % Seg Neutrophils # Seg Neutrophils # Man Lymphocytes # (Manual) Monocytes # (Manual) PT INR D-Dimer Heparin Anti-Xa Level POC ABG pH ABG pH POC ABG pCO2 POC ABG pO2 ABG pO2 ABG HCO3 ABG O2 Saturation ABG Base Excess ABG Hemoglobin Oxyhemoglobin Sodium Potassium Chloride Carbon Dioxide BUN Creatinine Glucose POC Glucose Lactic Acid 5.10 H* Calcium Ionized Calcium Phosphorus Magnesium Iron TIBC Ferritin Total Bilirubin Direct Bilirubin AST ALT Alkaline Phosphatase Total Creatine Kinase CK-MB (CK-2) Troponin T C-Reactive Protein Total Protein Albumin Triglycerides LDL Cholesterol Direct HDL Cholesterol Free T4 PTH Intact Urine WBC (Auto) Urine Creatinine Salicylates < 0.3 L Acetaminophen < 5.0 L Crossmatch 03/16/19 03/16/19 03/16/19 17:05 17:05 20:35 WBC RBC Hgb Hct RDW Plt Count Lymph % (Auto) Lymph # Seg Neutrophils % Seg Neuts % (Manual) Lymphocytes % (Manual) Monocytes % (Manual) Nucleated RBC % Seg Neutrophils # Seg Neutrophils # Man Lymphocytes # (Manual) Monocytes # (Manual) PT 15.9 H INR 1.30 H D-Dimer Heparin Anti-Xa Level POC ABG pH ABG pH POC ABG pCO2 POC ABG pO2 ABG pO2 ABG HCO3 ABG O2 Saturation ABG Base Excess ABG Hemoglobin Oxyhemoglobin Sodium Potassium Chloride Carbon Dioxide BUN Creatinine Glucose POC Glucose Lactic Acid 3.30 H* Calcium Ionized Calcium Phosphorus Magnesium Iron TIBC Ferritin Total Bilirubin 6.20 H Direct Bilirubin 5.9 H AST 800 H ALT 120 H Alkaline Phosphatase Total Creatine Kinase CK-MB (CK-2) Troponin T C-Reactive Protein Total Protein 4.4 L Albumin 2.4 L Triglycerides LDL Cholesterol Direct HDL Cholesterol Free T4 PTH Intact Urine WBC (Auto) Urine Creatinine Salicylates Acetaminophen Crossmatch 03/16/19 03/16/19 03/16/19 21:45 22:32 Unknown WBC RBC Hgb Hct RDW Plt Count Lymph % (Auto) Lymph # Seg Neutrophils % Seg Neuts % (Manual) Lymphocytes % (Manual) Monocytes % (Manual) Nucleated RBC % Seg Neutrophils # Seg Neutrophils # Man Lymphocytes # (Manual) Monocytes # (Manual) PT INR D-Dimer Heparin Anti-Xa Level POC ABG pH ABG pH POC ABG pCO2 POC ABG pO2 ABG pO2 ABG HCO3 ABG O2 Saturation ABG Base Excess ABG Hemoglobin Oxyhemoglobin Sodium Potassium Chloride Carbon Dioxide BUN Creatinine Glucose POC Glucose Lactic Acid 3.30 H* 3.00 H* Calcium Ionized Calcium Phosphorus Magnesium Iron TIBC Ferritin Total Bilirubin Direct Bilirubin AST ALT Alkaline Phosphatase Total Creatine Kinase CK-MB (CK-2) Troponin T 0.047 H D C-Reactive Protein Total Protein Albumin Triglycerides 395 H LDL Cholesterol Direct 10 L HDL Cholesterol 7 L Free T4 PTH Intact Urine WBC (Auto) Urine Creatinine Salicylates Acetaminophen Crossmatch 03/17/19 03/17/19 03/17/19 03:45 03:45 03:45 WBC RBC Hgb Hct RDW Plt Count Lymph % (Auto) Lymph # Seg Neutrophils % Seg Neuts % (Manual) Lymphocytes % (Manual) Monocytes % (Manual) Nucleated RBC % Seg Neutrophils # Seg Neutrophils # Man Lymphocytes # (Manual) Monocytes # (Manual) PT INR D-Dimer Heparin Anti-Xa Level POC ABG pH ABG pH POC ABG pCO2 POC ABG pO2 ABG pO2 ABG HCO3 ABG O2 Saturation ABG Base Excess ABG Hemoglobin Oxyhemoglobin Sodium 131 L Potassium Chloride 88.9 L Carbon Dioxide BUN 53 H Creatinine 7.1 H Glucose POC Glucose Lactic Acid 4.10 H* Calcium 5.4 L* D Ionized Calcium Phosphorus 7.30 H Magnesium 1.60 L Iron TIBC Ferritin Total Bilirubin 5.90 H Direct Bilirubin AST 801 H ALT 109 H Alkaline Phosphatase Total Creatine Kinase 11694 H 49006 H CK-MB (CK-2) 41.5 H Troponin T 0.054 H C-Reactive Protein Total Protein 4.5 L Albumin 2.0 L Triglycerides LDL Cholesterol Direct HDL Cholesterol Free T4 PTH Intact Urine WBC (Auto) Urine Creatinine Salicylates Acetaminophen Crossmatch 03/17/19 03/17/19 03/17/19 05:47 07:16 07:16 WBC RBC Hgb Hct RDW Plt Count Lymph % (Auto) Lymph # Seg Neutrophils % Seg Neuts % (Manual) Lymphocytes % (Manual) Monocytes % (Manual) Nucleated RBC % Seg Neutrophils # Seg Neutrophils # Man Lymphocytes # (Manual) Monocytes # (Manual) PT INR D-Dimer Heparin Anti-Xa Level POC ABG pH 7.193 L ABG pH POC ABG pCO2 45.2 H POC ABG pO2 65 L ABG pO2 ABG HCO3 ABG O2 Saturation ABG Base Excess ABG Hemoglobin Oxyhemoglobin Sodium Potassium Chloride Carbon Dioxide BUN Creatinine Glucose POC Glucose Lactic Acid 5.50 H* Calcium Ionized Calcium Phosphorus Magnesium Iron TIBC Ferritin Total Bilirubin Direct Bilirubin AST ALT Alkaline Phosphatase Total Creatine Kinase 08530 H CK-MB (CK-2) 54.3 H Troponin T 0.058 H C-Reactive Protein Total Protein Albumin Triglycerides LDL Cholesterol Direct HDL Cholesterol Free T4 PTH Intact Urine WBC (Auto) Urine Creatinine Salicylates Acetaminophen Crossmatch 03/17/19 03/17/19 03/17/19 11:52 12:51 13:01 WBC RBC Hgb Hct RDW Plt Count Lymph % (Auto) Lymph # Seg Neutrophils % Seg Neuts % (Manual) Lymphocytes % (Manual) Monocytes % (Manual) Nucleated RBC % Seg Neutrophils # Seg Neutrophils # Man Lymphocytes # (Manual) Monocytes # (Manual) PT INR D-Dimer Heparin Anti-Xa Level POC ABG pH 7.154 L ABG pH POC ABG pCO2 34.3 L POC ABG pO2 73 L ABG pO2 ABG HCO3 ABG O2 Saturation ABG Base Excess ABG Hemoglobin Oxyhemoglobin Sodium Potassium Chloride Carbon Dioxide BUN Creatinine Glucose POC Glucose 60 L Lactic Acid 8.20 H* Calcium Ionized Calcium Phosphorus Magnesium Iron TIBC Ferritin Total Bilirubin Direct Bilirubin AST ALT Alkaline Phosphatase Total Creatine Kinase CK-MB (CK-2) Troponin T C-Reactive Protein Total Protein Albumin Triglycerides LDL Cholesterol Direct HDL Cholesterol Free T4 PTH Intact Urine WBC (Auto) Urine Creatinine Salicylates Acetaminophen Crossmatch 03/17/19 03/17/19 03/17/19 14:37 14:37 14:37 WBC 29.3 H RBC Hgb Hct RDW 15.8 H Plt Count 45 L Lymph % (Auto) Lymph # Seg Neutrophils % Seg Neuts % (Manual) 81.0 H Lymphocytes % (Manual) 1.0 L Monocytes % (Manual) 15.0 H Nucleated RBC % Seg Neutrophils # Seg Neutrophils # Man 23.7 H Lymphocytes # (Manual) 0.3 L Monocytes # (Manual) 4.4 H PT INR D-Dimer Heparin Anti-Xa Level POC ABG pH ABG pH POC ABG pCO2 POC ABG pO2 ABG pO2 ABG HCO3 ABG O2 Saturation ABG Base Excess ABG Hemoglobin Oxyhemoglobin Sodium Potassium Chloride Carbon Dioxide BUN Creatinine Glucose POC Glucose Lactic Acid 4.90 H* Calcium Ionized Calcium Phosphorus Magnesium Iron TIBC Ferritin Total Bilirubin Direct Bilirubin AST ALT Alkaline Phosphatase Total Creatine Kinase CK-MB (CK-2) Troponin T C-Reactive Protein 24.90 H Total Protein Albumin Triglycerides LDL Cholesterol Direct HDL Cholesterol Free T4 PTH Intact Urine WBC (Auto) Urine Creatinine Salicylates Acetaminophen Crossmatch 03/17/19 03/17/19 03/17/19 16:05 16:05 17:02 WBC RBC Hgb Hct RDW Plt Count Lymph % (Auto) Lymph # Seg Neutrophils % Seg Neuts % (Manual) Lymphocytes % (Manual) Monocytes % (Manual) Nucleated RBC % Seg Neutrophils # Seg Neutrophils # Man Lymphocytes # (Manual) Monocytes # (Manual) PT INR D-Dimer Heparin Anti-Xa Level POC ABG pH 7.183 L ABG pH POC ABG pCO2 POC ABG pO2 65 L ABG pO2 ABG HCO3 ABG O2 Saturation ABG Base Excess ABG Hemoglobin Oxyhemoglobin Sodium Potassium Chloride Carbon Dioxide BUN Creatinine Glucose POC Glucose Lactic Acid Calcium Ionized Calcium Phosphorus Magnesium Iron TIBC Ferritin Total Bilirubin Direct Bilirubin AST ALT Alkaline Phosphatase Total Creatine Kinase CK-MB (CK-2) Troponin T C-Reactive Protein Total Protein Albumin Triglycerides LDL Cholesterol Direct HDL Cholesterol Free T4 PTH Intact Urine WBC (Auto) 30.0 H Urine Creatinine 106.6 H Salicylates Acetaminophen Crossmatch 03/18/19 03/18/19 03/18/19 05:12 05:16 05:53 WBC RBC Hgb Hct RDW Plt Count Lymph % (Auto) Lymph # Seg Neutrophils % Seg Neuts % (Manual) Lymphocytes % (Manual) Monocytes % (Manual) Nucleated RBC % Seg Neutrophils # Seg Neutrophils # Man Lymphocytes # (Manual) Monocytes # (Manual) PT INR D-Dimer Heparin Anti-Xa Level POC ABG pH 7.257 L ABG pH POC ABG pCO2 31.6 L POC ABG pO2 69 L ABG pO2 ABG HCO3 ABG O2 Saturation ABG Base Excess ABG Hemoglobin Oxyhemoglobin Sodium Potassium Chloride Carbon Dioxide BUN Creatinine Glucose POC Glucose 141 H Lactic Acid 5.00 H* Calcium Ionized Calcium Phosphorus Magnesium Iron TIBC Ferritin Total Bilirubin Direct Bilirubin AST ALT Alkaline Phosphatase Total Creatine Kinase CK-MB (CK-2) Troponin T C-Reactive Protein Total Protein Albumin Triglycerides LDL Cholesterol Direct HDL Cholesterol Free T4 PTH Intact Urine WBC (Auto) Urine Creatinine Salicylates Acetaminophen Crossmatch 03/18/19 03/18/19 03/18/19 06:57 08:40 08:40 WBC 31.7 H RBC Hgb Hct RDW 15.5 H Plt Count 35 L Lymph % (Auto) Lymph # Seg Neutrophils % Seg Neuts % (Manual) Lymphocytes % (Manual) Monocytes % (Manual) Nucleated RBC % Seg Neutrophils # Seg Neutrophils # Man Lymphocytes # (Manual) Monocytes # (Manual) PT INR D-Dimer Heparin Anti-Xa Level POC ABG pH ABG pH POC ABG pCO2 POC ABG pO2 ABG pO2 ABG HCO3 ABG O2 Saturation ABG Base Excess ABG Hemoglobin Oxyhemoglobin Sodium 132 L Potassium 5.5 H D Chloride 88.5 L Carbon Dioxide 18 L BUN 71 H Creatinine 8.1 H Glucose 205 H POC Glucose Lactic Acid 5.00 H* Calcium 4.1 L* D Ionized Calcium Phosphorus Magnesium 2.40 H Iron TIBC Ferritin Total Bilirubin 7.50 H Direct Bilirubin AST 1088 H ALT 159 H Alkaline Phosphatase 190 H Total Creatine Kinase 331737 H CK-MB (CK-2) Troponin T C-Reactive Protein Total Protein 4.7 L Albumin 1.8 L Triglycerides LDL Cholesterol Direct HDL Cholesterol Free T4 PTH Intact Urine WBC (Auto) Urine Creatinine Salicylates Acetaminophen Crossmatch 03/18/19 03/18/19 03/18/19 12:33 12:50 13:19 WBC RBC Hgb Hct RDW Plt Count Lymph % (Auto) Lymph # Seg Neutrophils % Seg Neuts % (Manual) Lymphocytes % (Manual) Monocytes % (Manual) Nucleated RBC % Seg Neutrophils # Seg Neutrophils # Man Lymphocytes # (Manual) Monocytes # (Manual) PT INR D-Dimer Heparin Anti-Xa Level POC ABG pH 7.282 L ABG pH POC ABG pCO2 POC ABG pO2 67 L ABG pO2 ABG HCO3 ABG O2 Saturation ABG Base Excess ABG Hemoglobin Oxyhemoglobin Sodium Potassium Chloride Carbon Dioxide BUN Creatinine Glucose POC Glucose 129 H Lactic Acid 3.30 H* Calcium Ionized Calcium Phosphorus Magnesium Iron TIBC Ferritin Total Bilirubin Direct Bilirubin AST ALT Alkaline Phosphatase Total Creatine Kinase CK-MB (CK-2) Troponin T C-Reactive Protein Total Protein Albumin Triglycerides LDL Cholesterol Direct HDL Cholesterol Free T4 PTH Intact Urine WBC (Auto) Urine Creatinine Salicylates Acetaminophen Crossmatch 03/18/19 03/18/19 03/18/19 13:19 16:50 18:11 WBC RBC Hgb Hct RDW Plt Count Lymph % (Auto) Lymph # Seg Neutrophils % Seg Neuts % (Manual) Lymphocytes % (Manual) Monocytes % (Manual) Nucleated RBC % Seg Neutrophils # Seg Neutrophils # Man Lymphocytes # (Manual) Monocytes # (Manual) PT INR D-Dimer Heparin Anti-Xa Level POC ABG pH ABG pH POC ABG pCO2 POC ABG pO2 59 L ABG pO2 ABG HCO3 ABG O2 Saturation ABG Base Excess ABG Hemoglobin Oxyhemoglobin Sodium Potassium Chloride Carbon Dioxide BUN Creatinine Glucose POC Glucose 151 H Lactic Acid Calcium 4.2 L* Ionized Calcium Phosphorus Magnesium Iron TIBC Ferritin Total Bilirubin Direct Bilirubin AST ALT Alkaline Phosphatase Total Creatine Kinase 454823 H CK-MB (CK-2) Troponin T C-Reactive Protein Total Protein Albumin Triglycerides LDL Cholesterol Direct HDL Cholesterol Free T4 PTH Intact Urine WBC (Auto) Urine Creatinine Salicylates Acetaminophen Crossmatch 03/18/19 03/18/19 03/19/19 18:20 23:39 01:42 WBC RBC Hgb Hct RDW Plt Count Lymph % (Auto) Lymph # Seg Neutrophils % Seg Neuts % (Manual) Lymphocytes % (Manual) Monocytes % (Manual) Nucleated RBC % Seg Neutrophils # Seg Neutrophils # Man Lymphocytes # (Manual) Monocytes # (Manual) PT INR D-Dimer Heparin Anti-Xa Level POC ABG pH 7.345 L ABG pH 7.285 L POC ABG pCO2 POC ABG pO2 59 L ABG pO2 44.0 L ABG HCO3 ABG O2 Saturation 70.9 L ABG Base Excess -5.7 L ABG Hemoglobin 11.9 L Oxyhemoglobin 69.6 L Sodium Potassium Chloride Carbon Dioxide BUN Creatinine Glucose POC Glucose 152 H Lactic Acid Calcium Ionized Calcium Phosphorus Magnesium Iron TIBC Ferritin Total Bilirubin Direct Bilirubin AST ALT Alkaline Phosphatase Total Creatine Kinase CK-MB (CK-2) Troponin T C-Reactive Protein Total Protein Albumin Triglycerides LDL Cholesterol Direct HDL Cholesterol Free T4 PTH Intact Urine WBC (Auto) Urine Creatinine Salicylates Acetaminophen Crossmatch 03/19/19 03/19/19 03/19/19 04:00 04:00 05:35 WBC 36.5 H RBC Hgb Hct RDW 15.8 H Plt Count 35 L Lymph % (Auto) Lymph # Seg Neutrophils % Seg Neuts % (Manual) Lymphocytes % (Manual) Monocytes % (Manual) Nucleated RBC % Seg Neutrophils # Seg Neutrophils # Man Lymphocytes # (Manual) Monocytes # (Manual) PT INR D-Dimer Heparin Anti-Xa Level POC ABG pH ABG pH 7.265 L POC ABG pCO2 POC ABG pO2 ABG pO2 35.4 L* ABG HCO3 ABG O2 Saturation 54.4 L ABG Base Excess -6.7 L ABG Hemoglobin 12.9 L Oxyhemoglobin 53.4 L Sodium 132 L Potassium 5.7 H Chloride 89.8 L Carbon Dioxide 19 L BUN 62 H Creatinine 6.4 H Glucose 151 H POC Glucose Lactic Acid Calcium 5.2 L* D Ionized Calcium Phosphorus Magnesium Iron TIBC Ferritin Total Bilirubin 7.80 H Direct Bilirubin AST 682 H ALT 130 H Alkaline Phosphatase 167 H Total Creatine Kinase CK-MB (CK-2) Troponin T C-Reactive Protein Total Protein 4.8 L Albumin 2.3 L Triglycerides LDL Cholesterol Direct HDL Cholesterol Free T4 PTH Intact Urine WBC (Auto) Urine Creatinine Salicylates Acetaminophen Crossmatch 03/19/19 03/19/19 03/19/19 05:49 09:16 09:50 WBC RBC Hgb Hct RDW Plt Count Lymph % (Auto) Lymph # Seg Neutrophils % Seg Neuts % (Manual) Lymphocytes % (Manual) Monocytes % (Manual) Nucleated RBC % Seg Neutrophils # Seg Neutrophils # Man Lymphocytes # (Manual) Monocytes # (Manual) PT INR D-Dimer Heparin Anti-Xa Level POC ABG pH 7.222 L ABG pH POC ABG pCO2 56.6 H POC ABG pO2 ABG pO2 ABG HCO3 ABG O2 Saturation ABG Base Excess ABG Hemoglobin Oxyhemoglobin Sodium Potassium Chloride Carbon Dioxide BUN Creatinine Glucose POC Glucose 154 H Lactic Acid 2.70 H* Calcium Ionized Calcium Phosphorus Magnesium Iron TIBC Ferritin Total Bilirubin Direct Bilirubin AST ALT Alkaline Phosphatase Total Creatine Kinase CK-MB (CK-2) Troponin T C-Reactive Protein Total Protein Albumin Triglycerides LDL Cholesterol Direct HDL Cholesterol Free T4 PTH Intact Urine WBC (Auto) Urine Creatinine Salicylates Acetaminophen Crossmatch 03/19/19 03/19/19 03/19/19 09:50 11:28 17:58 WBC RBC Hgb Hct RDW Plt Count Lymph % (Auto) Lymph # Seg Neutrophils % Seg Neuts % (Manual) Lymphocytes % (Manual) Monocytes % (Manual) Nucleated RBC % Seg Neutrophils # Seg Neutrophils # Man Lymphocytes # (Manual) Monocytes # (Manual) PT INR D-Dimer Heparin Anti-Xa Level POC ABG pH 7.250 L ABG pH POC ABG pCO2 52.6 H POC ABG pO2 ABG pO2 ABG HCO3 ABG O2 Saturation ABG Base Excess ABG Hemoglobin Oxyhemoglobin Sodium Potassium Chloride Carbon Dioxide BUN Creatinine Glucose POC Glucose 160 H Lactic Acid Calcium Ionized Calcium Phosphorus Magnesium Iron TIBC Ferritin Total Bilirubin Direct Bilirubin AST ALT Alkaline Phosphatase Total Creatine Kinase 10348 H CK-MB (CK-2) Troponin T C-Reactive Protein Total Protein Albumin Triglycerides LDL Cholesterol Direct HDL Cholesterol Free T4 PTH Intact Urine WBC (Auto) Urine Creatinine Salicylates Acetaminophen Crossmatch 03/19/19 03/19/19 03/20/19 19:48 21:03 02:16 WBC RBC Hgb Hct RDW Plt Count Lymph % (Auto) Lymph # Seg Neutrophils % Seg Neuts % (Manual) Lymphocytes % (Manual) Monocytes % (Manual) Nucleated RBC % Seg Neutrophils # Seg Neutrophils # Man Lymphocytes # (Manual) Monocytes # (Manual) PT INR D-Dimer Heparin Anti-Xa Level POC ABG pH 7.279 L ABG pH POC ABG pCO2 50.3 H POC ABG pO2 129 H ABG pO2 ABG HCO3 ABG O2 Saturation ABG Base Excess ABG Hemoglobin Oxyhemoglobin Sodium Potassium Chloride Carbon Dioxide BUN Creatinine Glucose POC Glucose 119 H 119 H Lactic Acid Calcium Ionized Calcium Phosphorus Magnesium Iron TIBC Ferritin Total Bilirubin Direct Bilirubin AST ALT Alkaline Phosphatase Total Creatine Kinase CK-MB (CK-2) Troponin T C-Reactive Protein Total Protein Albumin Triglycerides LDL Cholesterol Direct HDL Cholesterol Free T4 PTH Intact Urine WBC (Auto) Urine Creatinine Salicylates Acetaminophen Crossmatch 03/20/19 03/20/19 03/20/19 04:23 05:05 09:30 WBC 36.3 H RBC Hgb Hct RDW 15.5 H Plt Count 29 L Lymph % (Auto) Lymph # Seg Neutrophils % Seg Neuts % (Manual) Lymphocytes % (Manual) Monocytes % (Manual) Nucleated RBC % Seg Neutrophils # Seg Neutrophils # Man Lymphocytes # (Manual) Monocytes # (Manual) PT INR D-Dimer Heparin Anti-Xa Level POC ABG pH ABG pH POC ABG pCO2 POC ABG pO2 280 H ABG pO2 ABG HCO3 ABG O2 Saturation ABG Base Excess ABG Hemoglobin Oxyhemoglobin Sodium Potassium Chloride Carbon Dioxide BUN Creatinine Glucose POC Glucose 115 H Lactic Acid Calcium Ionized Calcium Phosphorus Magnesium Iron TIBC Ferritin Total Bilirubin Direct Bilirubin AST ALT Alkaline Phosphatase Total Creatine Kinase CK-MB (CK-2) Troponin T C-Reactive Protein Total Protein Albumin Triglycerides LDL Cholesterol Direct HDL Cholesterol Free T4 PTH Intact Urine WBC (Auto) Urine Creatinine Salicylates Acetaminophen Crossmatch 03/20/19 03/20/19 03/20/19 09:30 09:30 11:34 WBC RBC Hgb Hct RDW Plt Count Lymph % (Auto) Lymph # Seg Neutrophils % Seg Neuts % (Manual) Lymphocytes % (Manual) Monocytes % (Manual) Nucleated RBC % Seg Neutrophils # Seg Neutrophils # Man Lymphocytes # (Manual) Monocytes # (Manual) PT INR D-Dimer Heparin Anti-Xa Level POC ABG pH ABG pH POC ABG pCO2 POC ABG pO2 ABG pO2 ABG HCO3 ABG O2 Saturation ABG Base Excess ABG Hemoglobin Oxyhemoglobin Sodium 131 L Potassium Chloride 92.3 L Carbon Dioxide 20 L BUN 68 H Creatinine 6.1 H Glucose 164 H POC Glucose 141 H Lactic Acid Calcium 5.3 L* Ionized Calcium Phosphorus Magnesium Iron TIBC Ferritin Total Bilirubin 9.50 H Direct Bilirubin AST 381 H ALT 116 H Alkaline Phosphatase 255 H Total Creatine Kinase 21171 H CK-MB (CK-2) Troponin T C-Reactive Protein Total Protein 5.1 L Albumin 2.3 L Triglycerides LDL Cholesterol Direct HDL Cholesterol Free T4 PTH Intact Urine WBC (Auto) Urine Creatinine Salicylates Acetaminophen Crossmatch 03/20/19 03/20/19 03/20/19 14:41 14:45 18:50 WBC RBC Hgb Hct RDW Plt Count Lymph % (Auto) Lymph # Seg Neutrophils % Seg Neuts % (Manual) Lymphocytes % (Manual) Monocytes % (Manual) Nucleated RBC % Seg Neutrophils # Seg Neutrophils # Man Lymphocytes # (Manual) Monocytes # (Manual) PT INR D-Dimer Heparin Anti-Xa Level POC ABG pH ABG pH POC ABG pCO2 POC ABG pO2 ABG pO2 ABG HCO3 ABG O2 Saturation ABG Base Excess ABG Hemoglobin Oxyhemoglobin Sodium Potassium Chloride Carbon Dioxide BUN Creatinine Glucose POC Glucose 117 H Lactic Acid 2.90 H* Calcium Ionized Calcium Phosphorus Magnesium Iron TIBC Ferritin Total Bilirubin Direct Bilirubin AST ALT Alkaline Phosphatase Total Creatine Kinase CK-MB (CK-2) Troponin T C-Reactive Protein 13.30 H Total Protein Albumin Triglycerides LDL Cholesterol Direct HDL Cholesterol Free T4 PTH Intact Urine WBC (Auto) Urine Creatinine Salicylates Acetaminophen Crossmatch 03/20/19 03/21/19 03/21/19 21:55 04:26 04:26 WBC 37.8 H RBC Hgb Hct RDW 15.4 H Plt Count 36 L Lymph % (Auto) Lymph # Seg Neutrophils % Seg Neuts % (Manual) 93.0 H Lymphocytes % (Manual) 3.0 L Monocytes % (Manual) Nucleated RBC % 1.0 H Seg Neutrophils # 34.6 H Seg Neutrophils # Man 35.2 H Lymphocytes # (Manual) 1.1 L Monocytes # (Manual) PT INR D-Dimer Heparin Anti-Xa Level POC ABG pH ABG pH POC ABG pCO2 POC ABG pO2 ABG pO2 ABG HCO3 ABG O2 Saturation ABG Base Excess ABG Hemoglobin Oxyhemoglobin Sodium 131 L Potassium Chloride 90.7 L Carbon Dioxide 21 L BUN 69 H Creatinine 5.7 H Glucose 170 H POC Glucose 128 H Lactic Acid Calcium 6.1 L D Ionized Calcium Phosphorus Magnesium Iron TIBC Ferritin Total Bilirubin 9.50 H Direct Bilirubin AST 308 H ALT 124 H Alkaline Phosphatase 327 H Total Creatine Kinase 71756 H CK-MB (CK-2) Troponin T C-Reactive Protein Total Protein 5.7 L Albumin 2.6 L Triglycerides LDL Cholesterol Direct HDL Cholesterol Free T4 PTH Intact Urine WBC (Auto) Urine Creatinine Salicylates Acetaminophen Crossmatch 03/21/19 03/21/1919 05:17 05:39 08:29 WBC RBC Hgb Hct RDW Plt Count Lymph % (Auto) Lymph # Seg Neutrophils % Seg Neuts % (Manual) Lymphocytes % (Manual) Monocytes % (Manual) Nucleated RBC % Seg Neutrophils # Seg Neutrophils # Man Lymphocytes # (Manual) Monocytes # (Manual) PT INR D-Dimer Heparin Anti-Xa Level POC ABG pH ABG pH POC ABG pCO2 POC ABG pO2 209 H ABG pO2 ABG HCO3 ABG O2 Saturation ABG Base Excess ABG Hemoglobin Oxyhemoglobin Sodium Potassium Chloride Carbon Dioxide BUN Creatinine Glucose POC Glucose 145 H Lactic Acid Calcium Ionized Calcium Phosphorus Magnesium Iron TIBC Ferritin Total Bilirubin Direct Bilirubin AST ALT Alkaline Phosphatase Total Creatine Kinase 85490 H CK-MB (CK-2) Troponin T C-Reactive Protein Total Protein Albumin Triglycerides LDL Cholesterol Direct HDL Cholesterol Free T4 PTH Intact Urine WBC (Auto) Urine Creatinine Salicylates Acetaminophen Crossmatch 03/21/19 03/21/19 03/21/19 08:29 11:43 12:00 WBC RBC Hgb Hct RDW Plt Count Lymph % (Auto) Lymph # Seg Neutrophils % Seg Neuts % (Manual) Lymphocytes % (Manual) Monocytes % (Manual) Nucleated RBC % Seg Neutrophils # Seg Neutrophils # Man Lymphocytes # (Manual) Monocytes # (Manual) PT INR D-Dimer Heparin Anti-Xa Level POC ABG pH ABG pH POC ABG pCO2 POC ABG pO2 ABG pO2 ABG HCO3 ABG O2 Saturation ABG Base Excess ABG Hemoglobin Oxyhemoglobin Sodium Potassium Chloride Carbon Dioxide BUN Creatinine Glucose POC Glucose 123 H Lactic Acid 2.60 H* 2.20 H* Calcium Ionized Calcium Phosphorus Magnesium Iron TIBC Ferritin Total Bilirubin Direct Bilirubin AST ALT Alkaline Phosphatase Total Creatine Kinase CK-MB (CK-2) Troponin T C-Reactive Protein Total Protein Albumin Triglycerides LDL Cholesterol Direct HDL Cholesterol Free T4 PTH Intact Urine WBC (Auto) Urine Creatinine Salicylates Acetaminophen Crossmatch 03/21/19 03/21/19 03/21/19 14:11 18:28 19:32 WBC RBC Hgb Hct RDW Plt Count Lymph % (Auto) Lymph # Seg Neutrophils % Seg Neuts % (Manual) Lymphocytes % (Manual) Monocytes % (Manual) Nucleated RBC % Seg Neutrophils # Seg Neutrophils # Man Lymphocytes # (Manual) Monocytes # (Manual) PT INR D-Dimer Heparin Anti-Xa Level POC ABG pH 7.293 L ABG pH POC ABG pCO2 POC ABG pO2 ABG pO2 ABG HCO3 ABG O2 Saturation ABG Base Excess ABG Hemoglobin Oxyhemoglobin Sodium Potassium Chloride Carbon Dioxide BUN Creatinine Glucose POC Glucose 153 H Lactic Acid 2.10 H* Calcium Ionized Calcium Phosphorus Magnesium Iron TIBC Ferritin Total Bilirubin Direct Bilirubin AST ALT Alkaline Phosphatase Total Creatine Kinase CK-MB (CK-2) Troponin T C-Reactive Protein Total Protein Albumin Triglycerides LDL Cholesterol Direct HDL Cholesterol Free T4 PTH Intact Urine WBC (Auto) Urine Creatinine Salicylates Acetaminophen Crossmatch 03/21/19 03/22/19 03/22/19 23:38 05:08 05:51 WBC RBC Hgb Hct RDW Plt Count Lymph % (Auto) Lymph # Seg Neutrophils % Seg Neuts % (Manual) Lymphocytes % (Manual) Monocytes % (Manual) Nucleated RBC % Seg Neutrophils # Seg Neutrophils # Man Lymphocytes # (Manual) Monocytes # (Manual) PT INR D-Dimer Heparin Anti-Xa Level POC ABG pH 7.283 L ABG pH POC ABG pCO2 POC ABG pO2 53 L ABG pO2 ABG HCO3 ABG O2 Saturation ABG Base Excess ABG Hemoglobin Oxyhemoglobin Sodium Potassium Chloride Carbon Dioxide BUN Creatinine Glucose POC Glucose 149 H 131 H Lactic Acid Calcium Ionized Calcium Phosphorus Magnesium Iron TIBC Ferritin Total Bilirubin Direct Bilirubin AST ALT Alkaline Phosphatase Total Creatine Kinase CK-MB (CK-2) Troponin T C-Reactive Protein Total Protein Albumin Triglycerides LDL Cholesterol Direct HDL Cholesterol Free T4 PTH Intact Urine WBC (Auto) Urine Creatinine Salicylates Acetaminophen Crossmatch 03/22/19 03/22/19 03/22/19 08:00 08:00 18:19 WBC 36.7 H RBC Hgb 11.0 L Hct 33.5 L RDW 15.5 H Plt Count 43 L Lymph % (Auto) Lymph # Seg Neutrophils % Seg Neuts % (Manual) 87.0 H Lymphocytes % (Manual) 7.0 L Monocytes % (Manual) Nucleated RBC % Seg Neutrophils # Seg Neutrophils # Man 31.9 H Lymphocytes # (Manual) Monocytes # (Manual) PT INR D-Dimer Heparin Anti-Xa Level POC ABG pH ABG pH POC ABG pCO2 46.4 H POC ABG pO2 108 H ABG pO2 ABG HCO3 ABG O2 Saturation ABG Base Excess ABG Hemoglobin Oxyhemoglobin Sodium 132 L Potassium 5.6 H Chloride 89.6 L Carbon Dioxide 20 L BUN 101 H Creatinine 7.4 H Glucose 124 H POC Glucose Lactic Acid Calcium 5.2 L* Ionized Calcium Phosphorus Magnesium Iron TIBC Ferritin Total Bilirubin 2.80 H Direct Bilirubin AST 119 H ALT 86 H Alkaline Phosphatase 245 H Total Creatine Kinase CK-MB (CK-2) Troponin T C-Reactive Protein Total Protein 5.6 L Albumin 2.5 L Triglycerides LDL Cholesterol Direct HDL Cholesterol Free T4 PTH Intact Urine WBC (Auto) Urine Creatinine Salicylates Acetaminophen Crossmatch 03/22/19 03/23/19 03/23/19 20:37 04:49 05:28 WBC 35.9 H RBC Hgb 10.8 L Hct 33.2 L RDW 15.5 H Plt Count 49 L Lymph % (Auto) Lymph # Seg Neutrophils % Seg Neuts % (Manual) 81.0 H Lymphocytes % (Manual) 3.5 L Monocytes % (Manual) Nucleated RBC % Seg Neutrophils # Seg Neutrophils # Man 29.1 H Lymphocytes # (Manual) Monocytes # (Manual) 1.4 H PT INR D-Dimer Heparin Anti-Xa Level POC ABG pH 7.296 L ABG pH POC ABG pCO2 46.2 H POC ABG pO2 ABG pO2 ABG HCO3 ABG O2 Saturation ABG Base Excess ABG Hemoglobin Oxyhemoglobin Sodium 129 L Potassium 5.2 H Chloride 91.1 L Carbon Dioxide BUN 91 H Creatinine 6.6 H Glucose 190 H POC Glucose Lactic Acid Calcium 5.3 L* Ionized Calcium Phosphorus Magnesium Iron TIBC Ferritin Total Bilirubin 1.80 H Direct Bilirubin AST 80 H ALT 62 H Alkaline Phosphatase 209 H Total Creatine Kinase 9758 H CK-MB (CK-2) Troponin T C-Reactive Protein Total Protein 5.2 L Albumin 2.2 L Triglycerides LDL Cholesterol Direct HDL Cholesterol Free T4 PTH Intact Urine WBC (Auto) Urine Creatinine Salicylates Acetaminophen Crossmatch 03/23/19 03/23/19 03/23/19 05:28 05:31 11:33 WBC 29.7 H RBC 3.59 L Hgb 10.1 L Hct 31.1 L RDW 15.4 H Plt Count 47 L Lymph % (Auto) Lymph # Seg Neutrophils % Seg Neuts % (Manual) 89.0 H Lymphocytes % (Manual) 6.0 L Monocytes % (Manual) Nucleated RBC % 1.0 H Seg Neutrophils # Seg Neutrophils # Man 26.4 H Lymphocytes # (Manual) Monocytes # (Manual) PT INR D-Dimer Heparin Anti-Xa Level POC ABG pH ABG pH POC ABG pCO2 POC ABG pO2 ABG pO2 ABG HCO3 ABG O2 Saturation ABG Base Excess ABG Hemoglobin Oxyhemoglobin Sodium Potassium Chloride Carbon Dioxide BUN Creatinine Glucose POC Glucose 122 H 113 H Lactic Acid Calcium Ionized Calcium Phosphorus Magnesium Iron TIBC Ferritin Total Bilirubin Direct Bilirubin AST ALT Alkaline Phosphatase Total Creatine Kinase CK-MB (CK-2) Troponin T C-Reactive Protein Total Protein Albumin Triglycerides LDL Cholesterol Direct HDL Cholesterol Free T4 PTH Intact Urine WBC (Auto) Urine Creatinine Salicylates Acetaminophen Crossmatch 03/23/19 03/24/19 03/24/19 17:47 00:00 04:50 WBC 35.0 H RBC Hgb 10.4 L Hct 32.4 L RDW Plt Count 60 L Lymph % (Auto) Lymph # Seg Neutrophils % Seg Neuts % (Manual) 93.0 H Lymphocytes % (Manual) 5.0 L Monocytes % (Manual) Nucleated RBC % 7.0 H Seg Neutrophils # Seg Neutrophils # Man 32.6 H Lymphocytes # (Manual) Monocytes # (Manual) PT INR D-Dimer Heparin Anti-Xa Level POC ABG pH ABG pH POC ABG pCO2 POC ABG pO2 ABG pO2 ABG HCO3 ABG O2 Saturation ABG Base Excess ABG Hemoglobin Oxyhemoglobin Sodium Potassium Chloride Carbon Dioxide BUN Creatinine Glucose POC Glucose 111 H 108 H Lactic Acid Calcium Ionized Calcium Phosphorus Magnesium Iron TIBC Ferritin Total Bilirubin Direct Bilirubin AST ALT Alkaline Phosphatase Total Creatine Kinase CK-MB (CK-2) Troponin T C-Reactive Protein Total Protein Albumin Triglycerides LDL Cholesterol Direct HDL Cholesterol Free T4 PTH Intact Urine WBC (Auto) Urine Creatinine Salicylates Acetaminophen Crossmatch 03/24/19 03/24/19 03/24/19 04:50 05:06 12:55 WBC RBC Hgb Hct RDW Plt Count Lymph % (Auto) Lymph # Seg Neutrophils % Seg Neuts % (Manual) Lymphocytes % (Manual) Monocytes % (Manual) Nucleated RBC % Seg Neutrophils # Seg Neutrophils # Man Lymphocytes # (Manual) Monocytes # (Manual) PT INR D-Dimer Heparin Anti-Xa Level POC ABG pH ABG pH POC ABG pCO2 POC ABG pO2 ABG pO2 ABG HCO3 ABG O2 Saturation ABG Base Excess ABG Hemoglobin Oxyhemoglobin Sodium 134 L Potassium 5.1 H Chloride 95.3 L Carbon Dioxide 21 L BUN 85 H Creatinine 6.4 H Glucose 109 H POC Glucose 112 H 110 H Lactic Acid Calcium 5.8 L* Ionized Calcium Phosphorus Magnesium Iron TIBC Ferritin Total Bilirubin Direct Bilirubin AST ALT Alkaline Phosphatase Total Creatine Kinase 5747 H CK-MB (CK-2) Troponin T C-Reactive Protein Total Protein Albumin Triglycerides LDL Cholesterol Direct HDL Cholesterol Free T4 PTH Intact Urine WBC (Auto) Urine Creatinine Salicylates Acetaminophen Crossmatch 03/24/19 03/25/19 03/25/19 23:29 05:00 05:00 WBC RBC Hgb Hct RDW Plt Count Lymph % (Auto) Lymph # Seg Neutrophils % Seg Neuts % (Manual) Lymphocytes % (Manual) Monocytes % (Manual) Nucleated RBC % Seg Neutrophils # Seg Neutrophils # Man Lymphocytes # (Manual) Monocytes # (Manual) PT INR D-Dimer Heparin Anti-Xa Level POC ABG pH ABG pH POC ABG pCO2 POC ABG pO2 ABG pO2 ABG HCO3 ABG O2 Saturation ABG Base Excess ABG Hemoglobin Oxyhemoglobin Sodium 133 L Potassium Chloride 94.0 L Carbon Dioxide 21 L BUN 81 H Creatinine 6.4 H Glucose POC Glucose 109 H Lactic Acid Calcium 5.5 L* Ionized Calcium Phosphorus Magnesium Iron TIBC Ferritin Total Bilirubin Direct Bilirubin AST 80 H ALT Alkaline Phosphatase 202 H Total Creatine Kinase 3589 H CK-MB (CK-2) Troponin T C-Reactive Protein Total Protein 5.3 L Albumin 2.4 L Triglycerides LDL Cholesterol Direct HDL Cholesterol Free T4 PTH Intact 329.9 H Urine WBC (Auto) Urine Creatinine Salicylates Acetaminophen Crossmatch 03/25/19 03/25/19 03/26/19 05:00 06:30 04:30 WBC 23.3 H RBC 3.61 L Hgb 10.2 L Hct 31.2 L RDW Plt Count 57 L Lymph % (Auto) Lymph # Seg Neutrophils % Seg Neuts % (Manual) 92.0 H Lymphocytes % (Manual) 6.0 L Monocytes % (Manual) Nucleated RBC % Seg Neutrophils # Seg Neutrophils # Man 21.4 H Lymphocytes # (Manual) Monocytes # (Manual) PT INR D-Dimer Heparin Anti-Xa Level POC ABG pH ABG pH 7.326 L POC ABG pCO2 POC ABG pO2 ABG pO2 109.5 H 137.4 H ABG HCO3 18.8 L 18.6 L ABG O2 Saturation ABG Base Excess -4.4 L -6.8 L ABG Hemoglobin 10.1 L 9.9 L Oxyhemoglobin Sodium Potassium Chloride Carbon Dioxide BUN Creatinine Glucose POC Glucose Lactic Acid Calcium Ionized Calcium Phosphorus Magnesium Iron TIBC Ferritin Total Bilirubin Direct Bilirubin AST ALT Alkaline Phosphatase Total Creatine Kinase CK-MB (CK-2) Troponin T C-Reactive Protein Total Protein Albumin Triglycerides LDL Cholesterol Direct HDL Cholesterol Free T4 PTH Intact Urine WBC (Auto) Urine Creatinine Salicylates Acetaminophen Crossmatch 03/26/19 03/26/19 03/26/19 23:22 Unknown Unknown WBC 19.5 H RBC 3.44 L Hgb 9.8 L Hct 29.9 L RDW Plt Count 85 L Lymph % (Auto) Lymph # Seg Neutrophils % Seg Neuts % (Manual) 95.0 H Lymphocytes % (Manual) 3.0 L Monocytes % (Manual) Nucleated RBC % Seg Neutrophils # Seg Neutrophils # Man 18.5 H Lymphocytes # (Manual) 0.6 L Monocytes # (Manual) PT INR D-Dimer Heparin Anti-Xa Level POC ABG pH ABG pH POC ABG pCO2 POC ABG pO2 ABG pO2 ABG HCO3 ABG O2 Saturation ABG Base Excess ABG Hemoglobin Oxyhemoglobin Sodium 135 L Potassium 5.2 H D Chloride 92.2 L Carbon Dioxide 18 L BUN 109 H Creatinine 8.5 H Glucose 117 H POC Glucose 69 L Lactic Acid Calcium 4.5 L* D Ionized Calcium Phosphorus Magnesium Iron TIBC Ferritin Total Bilirubin Direct Bilirubin AST ALT Alkaline Phosphatase Total Creatine Kinase 4527 H CK-MB (CK-2) Troponin T C-Reactive Protein Total Protein Albumin Triglycerides LDL Cholesterol Direct HDL Cholesterol Free T4 PTH Intact Urine WBC (Auto) Urine Creatinine Salicylates Acetaminophen Crossmatch 03/27/19 03/27/19 03/27/19 04:30 04:30 09:00 WBC 19.2 H RBC 3.42 L Hgb 9.9 L Hct 30.0 L RDW Plt Count 84 L Lymph % (Auto) Lymph # Seg Neutrophils % Seg Neuts % (Manual) Lymphocytes % (Manual) Monocytes % (Manual) Nucleated RBC % Seg Neutrophils # Seg Neutrophils # Man Lymphocytes # (Manual) Monocytes # (Manual) PT INR D-Dimer Heparin Anti-Xa Level POC ABG pH ABG pH POC ABG pCO2 POC ABG pO2 ABG pO2 ABG HCO3 ABG O2 Saturation ABG Base Excess ABG Hemoglobin Oxyhemoglobin Sodium 135 L Potassium Chloride 93.5 L Carbon Dioxide BUN 84 H Creatinine 7.1 H Glucose POC Glucose Lactic Acid Calcium 5.0 L* Ionized Calcium Phosphorus Magnesium Iron TIBC Ferritin Total Bilirubin Direct Bilirubin AST 78 H ALT Alkaline Phosphatase 135 H Total Creatine Kinase 4677 H CK-MB (CK-2) Troponin T C-Reactive Protein Total Protein 4.8 L Albumin 2.3 L Triglycerides 409 H LDL Cholesterol Direct HDL Cholesterol Free T4 PTH Intact Urine WBC (Auto) Urine Creatinine Salicylates Acetaminophen Crossmatch 03/27/19 03/27/19 03/27/19 12:37 14:15 14:15 WBC RBC Hgb 9.7 L Hct 29.5 L RDW Plt Count 87 L Lymph % (Auto) Lymph # Seg Neutrophils % Seg Neuts % (Manual) Lymphocytes % (Manual) Monocytes % (Manual) Nucleated RBC % Seg Neutrophils # Seg Neutrophils # Man Lymphocytes # (Manual) Monocytes # (Manual) PT 15.9 H INR 1.30 H D-Dimer Heparin Anti-Xa Level POC ABG pH ABG pH POC ABG pCO2 POC ABG pO2 ABG pO2 ABG HCO3 ABG O2 Saturation ABG Base Excess ABG Hemoglobin Oxyhemoglobin Sodium Potassium Chloride Carbon Dioxide BUN Creatinine Glucose POC Glucose 129 H Lactic Acid Calcium Ionized Calcium Phosphorus Magnesium Iron TIBC Ferritin Total Bilirubin Direct Bilirubin AST ALT Alkaline Phosphatase Total Creatine Kinase CK-MB (CK-2) Troponin T C-Reactive Protein Total Protein Albumin Triglycerides LDL Cholesterol Direct HDL Cholesterol Free T4 PTH Intact Urine WBC (Auto) Urine Creatinine Salicylates Acetaminophen Crossmatch 03/27/19 03/27/19 03/27/19 18:00 19:22 19:23 WBC RBC Hgb Hct RDW Plt Count Lymph % (Auto) Lymph # Seg Neutrophils % Seg Neuts % (Manual) Lymphocytes % (Manual) Monocytes % (Manual) Nucleated RBC % Seg Neutrophils # Seg Neutrophils # Man Lymphocytes # (Manual) Monocytes # (Manual) PT INR D-Dimer Heparin Anti-Xa Level < 0.10 L POC ABG pH ABG pH POC ABG pCO2 POC ABG pO2 ABG pO2 ABG HCO3 ABG O2 Saturation ABG Base Excess ABG Hemoglobin Oxyhemoglobin Sodium Potassium Chloride Carbon Dioxide BUN Creatinine Glucose POC Glucose 121 H Lactic Acid Calcium Ionized Calcium Phosphorus Magnesium Iron TIBC Ferritin Total Bilirubin Direct Bilirubin AST ALT Alkaline Phosphatase Total Creatine Kinase 4517 H CK-MB (CK-2) Troponin T C-Reactive Protein Total Protein Albumin Triglycerides LDL Cholesterol Direct HDL Cholesterol Free T4 PTH Intact Urine WBC (Auto) Urine Creatinine Salicylates Acetaminophen Crossmatch 03/27/19 03/27/19 03/28/19 22:10 23:52 03:49 WBC RBC Hgb Hct RDW Plt Count Lymph % (Auto) Lymph # Seg Neutrophils % Seg Neuts % (Manual) Lymphocytes % (Manual) Monocytes % (Manual) Nucleated RBC % Seg Neutrophils # Seg Neutrophils # Man Lymphocytes # (Manual) Monocytes # (Manual) PT INR D-Dimer Heparin Anti-Xa Level POC ABG pH 7.338 L ABG pH POC ABG pCO2 33.1 L POC ABG pO2 ABG pO2 ABG HCO3 ABG O2 Saturation ABG Base Excess ABG Hemoglobin Oxyhemoglobin Sodium Potassium Chloride Carbon Dioxide BUN Creatinine Glucose POC Glucose 113 H 117 H Lactic Acid Calcium Ionized Calcium Phosphorus Magnesium Iron TIBC Ferritin Total Bilirubin Direct Bilirubin AST ALT Alkaline Phosphatase Total Creatine Kinase CK-MB (CK-2) Troponin T C-Reactive Protein Total Protein Albumin Triglycerides LDL Cholesterol Direct HDL Cholesterol Free T4 PTH Intact Urine WBC (Auto) Urine Creatinine Salicylates Acetaminophen Crossmatch 03/28/19 03/28/19 03/28/19 05:13 05:13 06:18 WBC RBC Hgb Hct RDW Plt Count Lymph % (Auto) Lymph # Seg Neutrophils % Seg Neuts % (Manual) Lymphocytes % (Manual) Monocytes % (Manual) Nucleated RBC % Seg Neutrophils # Seg Neutrophils # Man Lymphocytes # (Manual) Monocytes # (Manual) PT INR D-Dimer Heparin Anti-Xa Level 0.23 L POC ABG pH ABG pH POC ABG pCO2 POC ABG pO2 ABG pO2 ABG HCO3 ABG O2 Saturation ABG Base Excess ABG Hemoglobin Oxyhemoglobin Sodium 135 L Potassium 5.5 H D Chloride 95.1 L Carbon Dioxide 16 L D BUN 129 H Creatinine 9.3 H Glucose 158 H POC Glucose 202 H Lactic Acid Calcium 4.0 L* D Ionized Calcium Phosphorus 12.40 H Magnesium Iron TIBC Ferritin Total Bilirubin Direct Bilirubin AST ALT Alkaline Phosphatase Total Creatine Kinase 4266 H CK-MB (CK-2) Troponin T C-Reactive Protein Total Protein Albumin Triglycerides LDL Cholesterol Direct HDL Cholesterol Free T4 PTH Intact Urine WBC (Auto) Urine Creatinine Salicylates Acetaminophen Crossmatch 03/28/19 03/28/19 03/28/19 08:25 10:00 12:00 WBC RBC Hgb 4.9 L* D Hct 15.4 L* D RDW Plt Count Lymph % (Auto) Lymph # Seg Neutrophils % Seg Neuts % (Manual) Lymphocytes % (Manual) Monocytes % (Manual) Nucleated RBC % Seg Neutrophils # Seg Neutrophils # Man Lymphocytes # (Manual) Monocytes # (Manual) PT 17.9 H INR 1.52 H D-Dimer 4845.98 H Heparin Anti-Xa Level POC ABG pH ABG pH POC ABG pCO2 POC ABG pO2 ABG pO2 ABG HCO3 ABG O2 Saturation ABG Base Excess ABG Hemoglobin Oxyhemoglobin Sodium Potassium Chloride Carbon Dioxide BUN Creatinine Glucose POC Glucose Lactic Acid Calcium Ionized Calcium Phosphorus Magnesium Iron TIBC Ferritin Total Bilirubin Direct Bilirubin AST ALT Alkaline Phosphatase Total Creatine Kinase CK-MB (CK-2) Troponin T C-Reactive Protein Total Protein Albumin Triglycerides LDL Cholesterol Direct HDL Cholesterol Free T4 PTH Intact Urine WBC (Auto) Urine Creatinine Salicylates Acetaminophen Crossmatch See Detail 03/28/19 03/28/19 03/28/19 12:28 14:10 17:43 WBC RBC Hgb 5.9 L* Hct 18.3 L* RDW Plt Count Lymph % (Auto) Lymph # Seg Neutrophils % Seg Neuts % (Manual) Lymphocytes % (Manual) Monocytes % (Manual) Nucleated RBC % Seg Neutrophils # Seg Neutrophils # Man Lymphocytes # (Manual) Monocytes # (Manual) PT INR D-Dimer Heparin Anti-Xa Level POC ABG pH ABG pH POC ABG pCO2 POC ABG pO2 ABG pO2 ABG HCO3 ABG O2 Saturation ABG Base Excess ABG Hemoglobin Oxyhemoglobin Sodium Potassium Chloride Carbon Dioxide BUN Creatinine Glucose POC Glucose 153 H 159 H Lactic Acid Calcium Ionized Calcium Phosphorus Magnesium Iron TIBC Ferritin Total Bilirubin Direct Bilirubin AST ALT Alkaline Phosphatase Total Creatine Kinase CK-MB (CK-2) Troponin T C-Reactive Protein Total Protein Albumin Triglycerides LDL Cholesterol Direct HDL Cholesterol Free T4 PTH Intact Urine WBC (Auto) Urine Creatinine Salicylates Acetaminophen Crossmatch 03/28/19 03/28/19 03/28/19 18:10 Unknown 23:59 WBC 24.8 H RBC 3.42 L Hgb 10.2 L D Hct 31.1 L D RDW 15.4 H Plt Count 54 L Lymph % (Auto) Lymph # Seg Neutrophils % Seg Neuts % (Manual) 91.0 H Lymphocytes % (Manual) 8.0 L Monocytes % (Manual) Nucleated RBC % Seg Neutrophils # Seg Neutrophils # Man 22.6 H Lymphocytes # (Manual) Monocytes # (Manual) PT INR D-Dimer Heparin Anti-Xa Level POC ABG pH ABG pH POC ABG pCO2 POC ABG pO2 ABG pO2 ABG HCO3 ABG O2 Saturation ABG Base Excess ABG Hemoglobin Oxyhemoglobin Sodium Potassium 5.7 H Chloride Carbon Dioxide BUN Creatinine Glucose POC Glucose 107 H Lactic Acid Calcium Ionized Calcium Phosphorus Magnesium Iron TIBC Ferritin Total Bilirubin Direct Bilirubin AST ALT Alkaline Phosphatase Total Creatine Kinase CK-MB (CK-2) Troponin T C-Reactive Protein Total Protein Albumin Triglycerides LDL Cholesterol Direct HDL Cholesterol Free T4 PTH Intact Urine WBC (Auto) Urine Creatinine Salicylates Acetaminophen Crossmatch 03/29/19 03/29/19 03/29/19 04:29 05:46 06:22 WBC RBC Hgb 8.6 L Hct 25.7 L RDW Plt Count 93 L Lymph % (Auto) Lymph # Seg Neutrophils % Seg Neuts % (Manual) Lymphocytes % (Manual) Monocytes % (Manual) Nucleated RBC % Seg Neutrophils # Seg Neutrophils # Man Lymphocytes # (Manual) Monocytes # (Manual) PT INR D-Dimer Heparin Anti-Xa Level POC ABG pH ABG pH POC ABG pCO2 32.2 L POC ABG pO2 ABG pO2 ABG HCO3 ABG O2 Saturation ABG Base Excess ABG Hemoglobin Oxyhemoglobin Sodium Potassium Chloride Carbon Dioxide BUN Creatinine Glucose POC Glucose 113 H Lactic Acid Calcium Ionized Calcium Phosphorus Magnesium Iron TIBC Ferritin Total Bilirubin Direct Bilirubin AST ALT Alkaline Phosphatase Total Creatine Kinase CK-MB (CK-2) Troponin T C-Reactive Protein Total Protein Albumin Triglycerides LDL Cholesterol Direct HDL Cholesterol Free T4 PTH Intact Urine WBC (Auto) Urine Creatinine Salicylates Acetaminophen Crossmatch 03/29/19 03/29/19 03/29/19 06:22 06:22 06:22 WBC 23.2 H RBC 2.91 L Hgb 8.6 L Hct 25.8 L RDW Plt Count 91 L Lymph % (Auto) Lymph # Seg Neutrophils % Seg Neuts % (Manual) Lymphocytes % (Manual) Monocytes % (Manual) Nucleated RBC % Seg Neutrophils # Seg Neutrophils # Man Lymphocytes # (Manual) Monocytes # (Manual) PT INR D-Dimer Heparin Anti-Xa Level POC ABG pH ABG pH POC ABG pCO2 POC ABG pO2 ABG pO2 ABG HCO3 ABG O2 Saturation ABG Base Excess ABG Hemoglobin Oxyhemoglobin Sodium 133 L Potassium Chloride 93.8 L Carbon Dioxide 18 L BUN 109 H Creatinine 7.4 H Glucose 124 H POC Glucose Lactic Acid Calcium 4.6 L* Ionized Calcium Phosphorus Magnesium Iron TIBC Ferritin Total Bilirubin Direct Bilirubin AST ALT Alkaline Phosphatase Total Creatine Kinase 3401 H CK-MB (CK-2) Troponin T C-Reactive Protein Total Protein Albumin Triglycerides 309 H LDL Cholesterol Direct HDL Cholesterol Free T4 PTH Intact Urine WBC (Auto) Urine Creatinine Salicylates Acetaminophen Crossmatch 03/29/19 03/29/19 03/29/19 11:48 11:48 18:24 WBC RBC Hgb 7.8 L Hct 23.2 L RDW Plt Count Lymph % (Auto) Lymph # Seg Neutrophils % Seg Neuts % (Manual) Lymphocytes % (Manual) Monocytes % (Manual) Nucleated RBC % Seg Neutrophils # Seg Neutrophils # Man Lymphocytes # (Manual) Monocytes # (Manual) PT 15.3 H INR 1.24 H D-Dimer Heparin Anti-Xa Level POC ABG pH ABG pH POC ABG pCO2 POC ABG pO2 ABG pO2 ABG HCO3 ABG O2 Saturation ABG Base Excess ABG Hemoglobin Oxyhemoglobin Sodium Potassium Chloride Carbon Dioxide BUN Creatinine Glucose POC Glucose 122 H Lactic Acid Calcium Ionized Calcium Phosphorus Magnesium Iron TIBC Ferritin Total Bilirubin Direct Bilirubin AST ALT Alkaline Phosphatase Total Creatine Kinase CK-MB (CK-2) Troponin T C-Reactive Protein Total Protein Albumin Triglycerides LDL Cholesterol Direct HDL Cholesterol Free T4 PTH Intact Urine WBC (Auto) Urine Creatinine Salicylates Acetaminophen Crossmatch 03/30/19 03/30/19 03/30/19 00:40 04:31 05:04 WBC RBC Hgb 7.6 L Hct 23.0 L RDW Plt Count Lymph % (Auto) Lymph # Seg Neutrophils % Seg Neuts % (Manual) Lymphocytes % (Manual) Monocytes % (Manual) Nucleated RBC % Seg Neutrophils # Seg Neutrophils # Man Lymphocytes # (Manual) Monocytes # (Manual) PT INR D-Dimer Heparin Anti-Xa Level POC ABG pH 7.346 L ABG pH POC ABG pCO2 POC ABG pO2 62 L ABG pO2 ABG HCO3 ABG O2 Saturation ABG Base Excess ABG Hemoglobin Oxyhemoglobin Sodium Potassium Chloride Carbon Dioxide BUN 79 H Creatinine 6.4 H Glucose POC Glucose Lactic Acid Calcium 6.1 L D Ionized Calcium Phosphorus Magnesium Iron TIBC Ferritin Total Bilirubin Direct Bilirubin AST ALT Alkaline Phosphatase Total Creatine Kinase CK-MB (CK-2) Troponin T C-Reactive Protein Total Protein Albumin Triglycerides LDL Cholesterol Direct HDL Cholesterol Free T4 PTH Intact Urine WBC (Auto) Urine Creatinine Salicylates Acetaminophen Crossmatch 03/30/19 03/30/19 03/30/19 08:45 12:09 22:43 WBC 14.3 H RBC 2.33 L Hgb 7.0 L 7.4 L Hct 21.0 L 22.3 L RDW 15.6 H Plt Count 135 L Lymph % (Auto) Lymph # Seg Neutrophils % Seg Neuts % (Manual) Lymphocytes % (Manual) Monocytes % (Manual) Nucleated RBC % Seg Neutrophils # Seg Neutrophils # Man Lymphocytes # (Manual) Monocytes # (Manual) PT INR D-Dimer Heparin Anti-Xa Level POC ABG pH ABG pH POC ABG pCO2 POC ABG pO2 ABG pO2 ABG HCO3 ABG O2 Saturation ABG Base Excess ABG Hemoglobin Oxyhemoglobin Sodium Potassium Chloride Carbon Dioxide BUN Creatinine Glucose POC Glucose Lactic Acid Calcium Ionized Calcium 3.7 L Phosphorus Magnesium Iron TIBC Ferritin Total Bilirubin Direct Bilirubin AST ALT Alkaline Phosphatase Total Creatine Kinase CK-MB (CK-2) Troponin T C-Reactive Protein Total Protein Albumin Triglycerides LDL Cholesterol Direct HDL Cholesterol Free T4 PTH Intact Urine WBC (Auto) Urine Creatinine Salicylates Acetaminophen Crossmatch 03/30/19 03/30/19 03/31/19 23:38 Unknown 04:44 WBC 11.5 H RBC 2.40 L Hgb 7.3 L Hct 21.9 L RDW 15.4 H Plt Count Lymph % (Auto) 10.6 L Lymph # Seg Neutrophils % 81.7 H Seg Neuts % (Manual) Lymphocytes % (Manual) Monocytes % (Manual) Nucleated RBC % Seg Neutrophils # 9.4 H Seg Neutrophils # Man Lymphocytes # (Manual) Monocytes # (Manual) PT INR D-Dimer Heparin Anti-Xa Level POC ABG pH ABG pH POC ABG pCO2 POC ABG pO2 ABG pO2 ABG HCO3 ABG O2 Saturation ABG Base Excess ABG Hemoglobin Oxyhemoglobin Sodium Potassium Chloride Carbon Dioxide BUN Creatinine Glucose POC Glucose 155 H Lactic Acid Calcium Ionized Calcium Phosphorus Magnesium Iron TIBC Ferritin Total Bilirubin Direct Bilirubin 0.4 H AST 63 H ALT Alkaline Phosphatase Total Creatine Kinase CK-MB (CK-2) Troponin T C-Reactive Protein Total Protein 4.9 L Albumin 2.2 L Triglycerides LDL Cholesterol Direct HDL Cholesterol Free T4 PTH Intact Urine WBC (Auto) Urine Creatinine Salicylates Acetaminophen Crossmatch 03/31/19 03/31/19 03/31/19 04:44 05:44 08:20 WBC RBC Hgb Hct RDW Plt Count Lymph % (Auto) Lymph # Seg Neutrophils % Seg Neuts % (Manual) Lymphocytes % (Manual) Monocytes % (Manual) Nucleated RBC % Seg Neutrophils # Seg Neutrophils # Man Lymphocytes # (Manual) Monocytes # (Manual) PT INR D-Dimer Heparin Anti-Xa Level POC ABG pH ABG pH POC ABG pCO2 53.5 H POC ABG pO2 62 L ABG pO2 ABG HCO3 ABG O2 Saturation ABG Base Excess ABG Hemoglobin Oxyhemoglobin Sodium 135 L Potassium Chloride 96.7 L Carbon Dioxide 19 L BUN 94 H Creatinine 7.8 H Glucose POC Glucose Lactic Acid Calcium 5.3 L* Ionized Calcium Phosphorus 8.20 H Magnesium Iron TIBC Ferritin Total Bilirubin Direct Bilirubin 0.4 H AST 60 H ALT Alkaline Phosphatase Total Creatine Kinase CK-MB (CK-2) Troponin T C-Reactive Protein Total Protein 4.8 L Albumin 2.1 L Triglycerides LDL Cholesterol Direct HDL Cholesterol Free T4 PTH Intact Urine WBC (Auto) Urine Creatinine Salicylates Acetaminophen Crossmatch 03/31/19 04/01/19 04/01/19 22:14 04:27 04:27 WBC RBC 2.60 L Hgb 8.0 L Hct 24.1 L RDW 15.7 H Plt Count Lymph % (Auto) 7.9 L Lymph # 0.7 L Seg Neutrophils % 83.6 H Seg Neuts % (Manual) Lymphocytes % (Manual) Monocytes % (Manual) Nucleated RBC % Seg Neutrophils # Seg Neutrophils # Man Lymphocytes # (Manual) Monocytes # (Manual) PT INR D-Dimer Heparin Anti-Xa Level POC ABG pH 7.286 L ABG pH POC ABG pCO2 54.7 H POC ABG pO2 179 H ABG pO2 ABG HCO3 ABG O2 Saturation ABG Base Excess ABG Hemoglobin Oxyhemoglobin Sodium Potassium Chloride Carbon Dioxide BUN 68 H Creatinine 6.6 H Glucose POC Glucose Lactic Acid Calcium 6.5 L D Ionized Calcium Phosphorus 7.30 H Magnesium Iron TIBC Ferritin Total Bilirubin Direct Bilirubin AST ALT Alkaline Phosphatase Total Creatine Kinase 1652 H CK-MB (CK-2) Troponin T C-Reactive Protein Total Protein Albumin Triglycerides LDL Cholesterol Direct HDL Cholesterol Free T4 PTH Intact Urine WBC (Auto) Urine Creatinine Salicylates Acetaminophen Crossmatch 04/01/19 04/01/19 04/01/19 05:14 05:37 18:37 WBC RBC Hgb Hct RDW Plt Count Lymph % (Auto) Lymph # Seg Neutrophils % Seg Neuts % (Manual) Lymphocytes % (Manual) Monocytes % (Manual) Nucleated RBC % Seg Neutrophils # Seg Neutrophils # Man Lymphocytes # (Manual) Monocytes # (Manual) PT INR D-Dimer Heparin Anti-Xa Level POC ABG pH 7.283 L ABG pH POC ABG pCO2 53.4 H POC ABG pO2 241 H ABG pO2 ABG HCO3 ABG O2 Saturation ABG Base Excess ABG Hemoglobin Oxyhemoglobin Sodium Potassium Chloride Carbon Dioxide BUN Creatinine Glucose POC Glucose 111 H 119 H Lactic Acid Calcium Ionized Calcium Phosphorus Magnesium Iron TIBC Ferritin Total Bilirubin Direct Bilirubin AST ALT Alkaline Phosphatase Total Creatine Kinase CK-MB (CK-2) Troponin T C-Reactive Protein Total Protein Albumin Triglycerides LDL Cholesterol Direct HDL Cholesterol Free T4 PTH Intact Urine WBC (Auto) Urine Creatinine Salicylates Acetaminophen Crossmatch 04/01/19 04/02/19 04/02/19 21:28 04:40 05:03 WBC RBC 2.36 L Hgb 7.2 L Hct 21.9 L RDW 16.0 H Plt Count Lymph % (Auto) 10.8 L Lymph # 0.8 L Seg Neutrophils % 80.3 H Seg Neuts % (Manual) Lymphocytes % (Manual) Monocytes % (Manual) Nucleated RBC % Seg Neutrophils # Seg Neutrophils # Man Lymphocytes # (Manual) Monocytes # (Manual) PT INR D-Dimer Heparin Anti-Xa Level POC ABG pH 7.299 L 7.300 L ABG pH POC ABG pCO2 48.2 H 45.2 H POC ABG pO2 133 H 107 H ABG pO2 ABG HCO3 ABG O2 Saturation ABG Base Excess ABG Hemoglobin Oxyhemoglobin Sodium Potassium Chloride Carbon Dioxide BUN Creatinine Glucose POC Glucose Lactic Acid Calcium Ionized Calcium Phosphorus Magnesium Iron TIBC Ferritin Total Bilirubin Direct Bilirubin AST ALT Alkaline Phosphatase Total Creatine Kinase CK-MB (CK-2) Troponin T C-Reactive Protein Total Protein Albumin Triglycerides LDL Cholesterol Direct HDL Cholesterol Free T4 PTH Intact Urine WBC (Auto) Urine Creatinine Salicylates Acetaminophen Crossmatch 04/02/19 04/02/19 04/02/19 05:03 05:03 12:15 WBC RBC Hgb 7.4 L Hct 22.6 L RDW Plt Count Lymph % (Auto) Lymph # Seg Neutrophils % Seg Neuts % (Manual) Lymphocytes % (Manual) Monocytes % (Manual) Nucleated RBC % Seg Neutrophils # Seg Neutrophils # Man Lymphocytes # (Manual) Monocytes # (Manual) PT INR D-Dimer Heparin Anti-Xa Level POC ABG pH ABG pH POC ABG pCO2 POC ABG pO2 ABG pO2 ABG HCO3 ABG O2 Saturation ABG Base Excess ABG Hemoglobin Oxyhemoglobin Sodium 136 L Potassium Chloride 97.8 L Carbon Dioxide 18 L BUN 82 H Creatinine 8.2 H Glucose POC Glucose Lactic Acid Calcium 6.7 L Ionized Calcium Phosphorus 7.50 H Magnesium Iron 26 L TIBC 138 L Ferritin 607.0 H Total Bilirubin Direct Bilirubin AST ALT Alkaline Phosphatase Total Creatine Kinase CK-MB (CK-2) Troponin T C-Reactive Protein Total Protein Albumin Triglycerides LDL Cholesterol Direct HDL Cholesterol Free T4 PTH Intact Urine WBC (Auto) Urine Creatinine Salicylates Acetaminophen Crossmatch Chest x-ray: pending Allied health notes reviewed: nursing
[2019-04-02] MEDS: CEFEPIME/NS 2 GM/100 ML 2 GM/100 ML BAG IV SCH (16:02)
--- NOTE | 2019-04-02 17:08 | Progress Note ---
Assessment and Plan Patient is a 43 y/o man w/ a history of psychiatric illness (unknown which psychiatric diagnosis he has been given in the past), who presented on 03/16/19 with altered mental status. During the course of admission, patient was found to have sepsis with septic shock, rhabdomyolysis, RUBEN, and multiorgan failure. According to the patient's clinical findings, the patient likely has toxic metabolic encephalopathy. In support of this diagnosis, the multiple metabolic derangements including multiorgan failure, sepsis, septic shock requiring pressor support, RUBEN, rhabdomyolysis. Plan: 1. Metabolic encephalopathy: - Likely due to multiple underlying metabolic derangements, including multiorgan failure, sepsis, septic shock requiring pressor support, RUBEN. - Possible Meningo-encephalitis, however patient had been on Abx since admission, and is waking up when sedation held. LP not likely to be high yield at this point. - Patient on antibiotics per ID. - EEG showed generalized slowing, no seizures or epileptiform activity. - CT head showed diffuse cerebral edema. MRI brain on 03/26/19 showed no acute abnormality. - Continue supportive care per ICU/primary/ID teams. - Discussed at length with patient's brother regarding current neurologic status, altered mental status due to metabolic abnormalities and sepsis/shock. - Will continue to monitor patient. Thank you for allowing me to take part in the care of this patient. Nahid Carroll MD Neurology Subjective Date of service: 04/02/19 Principal diagnosis: Metabolic Encephalopathy Interval history: Patient febrile overnight. Became hypotensive, requiring pressor support. Had a melanotic stool. Objective - Exam Narrative Exam: Patient is intubated. Opens eyes and nods head to vocal stimulus. Following 1- step commands by squeezing hand and moving feet. PERRL, corneal reflexes diminished, cough/gag weakly intact. Patient moves head with visual threat when checking corneal reflexes. Withdraws to pain stimulus in all extremities. Spontanenous movement noted in all extremities. 2+ reflexes throughout. - Vital Sign Vital Signs - 12hr 04/02/19 04/02/19 04/02/19 05:15 05:30 05:45 Temperature Pulse Rate 131 H 133 H 127 H Pulse Rate [ From Monitor] Respiratory 20 19 22 Rate Blood Pressure 118/49 113/50 114/54 O2 Sat by Pulse 98 99 99 Oximetry 04/02/19 04/02/19 04/02/19 06:01 06:15 06:31 Temperature Pulse Rate 128 H 135 H 127 H Pulse Rate [ From Monitor] Respiratory 19 23 19 Rate Blood Pressure 107/50 114/45 95/48 O2 Sat by Pulse 99 99 99 Oximetry 04/02/19 04/02/19 04/02/19 06:45 07:00 07:15 Temperature Pulse Rate 137 H 126 H 125 H Pulse Rate [ From Monitor] Respiratory 20 20 21 Rate Blood Pressure 95/49 92/45 94/43 O2 Sat by Pulse 100 100 100 Oximetry 04/02/19 04/02/19 04/02/19 07:30 07:45 08:00 Temperature 100.9 F H Pulse Rate 126 H 133 H 134 H Pulse Rate [ 135 H From Monitor] Respiratory 19 19 25 H Rate Blood Pressure 80/47 106/55 98/52 O2 Sat by Pulse 100 100 99 Oximetry 04/02/19 04/02/19 04/02/19 08:15 08:30 08:45 Temperature Pulse Rate 130 H 126 H 135 H Pulse Rate [ From Monitor] Respiratory 20 20 20 Rate Blood Pressure 125/48 113/53 112/56 O2 Sat by Pulse 100 99 99 Oximetry 04/02/19 04/02/19 04/02/19 09:01 09:15 09:31 Temperature Pulse Rate 145 H 135 H 123 H Pulse Rate [ From Monitor] Respiratory 20 18 20 Rate Blood Pressure 112/47 118/50 98/52 O2 Sat by Pulse 100 100 99 Oximetry 04/02/19 04/02/19 04/02/19 09:45 10:00 10:15 Temperature Pulse Rate 134 H 122 H 135 H Pulse Rate [ From Monitor] Respiratory 17 20 20 Rate Blood Pressure 98/52 106/49 113/53 O2 Sat by Pulse 100 100 100 Oximetry 04/02/19 04/02/19 04/02/19 10:30 10:45 11:00 Temperature Pulse Rate 130 H 116 H 132 H Pulse Rate [ From Monitor] Respiratory 19 17 18 Rate Blood Pressure 104/50 106/47 115/53 O2 Sat by Pulse 99 99 99 Oximetry 04/02/19 04/02/19 04/02/19 11:15 11:31 11:45 Temperature Pulse Rate 143 H 120 H 136 H Pulse Rate [ From Monitor] Respiratory 19 19 20 Rate Blood Pressure 108/54 115/53 142/76 O2 Sat by Pulse 99 98 98 Oximetry 04/02/19 04/02/19 04/02/19 12:00 12:15 12:30 Temperature 100.9 F H Pulse Rate 136 H 143 H 126 H Pulse Rate [ 139 H From Monitor] Respiratory 20 17 20 Rate Blood Pressure 86/52 104/53 103/52 O2 Sat by Pulse 98 98 97 Oximetry 04/02/19 04/02/19 04/02/19 12:45 13:00 13:15 Temperature Pulse Rate 142 H 135 H 131 H Pulse Rate [ From Monitor] Respiratory 21 17 20 Rate Blood Pressure 121/46 106/50 117/53 O2 Sat by Pulse 97 97 98 Oximetry 04/02/19 04/02/19 04/02/19 13:27 13:30 13:45 Temperature Pulse Rate 126 H 144 H 139 H Pulse Rate [ From Monitor] Respiratory 20 21 Rate Blood Pressure 103/52 111/62 112/62 O2 Sat by Pulse 99 97 Oximetry 04/02/19 04/02/19 04/02/19 14:01 14:15 14:30 Temperature Pulse Rate 131 H 135 H 136 H Pulse Rate [ From Monitor] Respiratory 20 19 21 Rate Blood Pressure 109/61 103/50 114/59 O2 Sat by Pulse 97 97 96 Oximetry 04/02/19 04/02/19 14:45 15:00 Temperature Pulse Rate 140 H 129 H Pulse Rate [ From Monitor] Respiratory 20 25 H Rate Blood Pressure 126/63 106/56 O2 Sat by Pulse 100 97 Oximetry - General Apperance Constitutional: acutely ill - EENT EENT: ATNC, PERRL, mucous membranes moist - Respiratory Respiratory: decreased breath sounds - Cardiovascular Cardiovascular: regular rate, normal S1, normal S2 Extremities: no clubbing, cyanosis, no inflammation - Gastrointestinal Gastrointestinal: normoactive bowel sounds, soft, non-tender - Laboratory Findings CBC and BMP: 04/02/19 12:15 04/02/19 05:03 Abnormal Lab Findings: Abnormal Labs 03/16/19 03/16/19 03/16/19 15:32 16:03 16:05 WBC 27.0 H RBC 5.55 H Hgb 15.7 H Hct 47.1 H RDW Plt Count 75 L Lymph % (Auto) Lymph # Seg Neutrophils % Seg Neuts % (Manual) 85.0 H Lymphocytes % (Manual) 2.0 L Monocytes % (Manual) Nucleated RBC % Seg Neutrophils # Seg Neutrophils # Man 23.0 H Lymphocytes # (Manual) 0.5 L Monocytes # (Manual) PT INR D-Dimer Heparin Anti-Xa Level POC ABG pH ABG pH POC ABG pCO2 POC ABG pO2 ABG pO2 ABG HCO3 ABG O2 Saturation ABG Base Excess ABG Hemoglobin Oxyhemoglobin Sodium 127 L Potassium Chloride 87.8 L Carbon Dioxide 17 L BUN 49 H Creatinine 5.8 H Glucose 150 H POC Glucose 118 H Lactic Acid Calcium 6.6 L Ionized Calcium Phosphorus Magnesium 1.10 L Iron TIBC Ferritin Total Bilirubin Direct Bilirubin AST ALT Alkaline Phosphatase Total Creatine Kinase 90885 H CK-MB (CK-2) Troponin T C-Reactive Protein Total Protein Albumin Triglycerides LDL Cholesterol Direct HDL Cholesterol Free T4 PTH Intact Urine WBC (Auto) Urine Creatinine Salicylates Acetaminophen Crossmatch 03/16/19 03/16/19 03/16/19 16:59 17:05 17:05 WBC RBC Hgb Hct RDW Plt Count Lymph % (Auto) Lymph # Seg Neutrophils % Seg Neuts % (Manual) Lymphocytes % (Manual) Monocytes % (Manual) Nucleated RBC % Seg Neutrophils # Seg Neutrophils # Man Lymphocytes # (Manual) Monocytes # (Manual) PT INR D-Dimer Heparin Anti-Xa Level POC ABG pH 7.297 L ABG pH POC ABG pCO2 33.0 L POC ABG pO2 ABG pO2 ABG HCO3 ABG O2 Saturation ABG Base Excess ABG Hemoglobin Oxyhemoglobin Sodium Potassium Chloride Carbon Dioxide BUN Creatinine Glucose POC Glucose Lactic Acid Calcium Ionized Calcium Phosphorus Magnesium Iron TIBC Ferritin Total Bilirubin Direct Bilirubin AST ALT Alkaline Phosphatase Total Creatine Kinase 21801 H CK-MB (CK-2) 83.1 H Troponin T C-Reactive Protein Total Protein Albumin Triglycerides LDL Cholesterol Direct HDL Cholesterol Free T4 0.72 L PTH Intact Urine WBC (Auto) Urine Creatinine Salicylates Acetaminophen Crossmatch 03/16/19 03/16/19 03/16/19 17:05 17:05 17:05 WBC RBC Hgb Hct RDW Plt Count Lymph % (Auto) Lymph # Seg Neutrophils % Seg Neuts % (Manual) Lymphocytes % (Manual) Monocytes % (Manual) Nucleated RBC % Seg Neutrophils # Seg Neutrophils # Man Lymphocytes # (Manual) Monocytes # (Manual) PT INR D-Dimer Heparin Anti-Xa Level POC ABG pH ABG pH POC ABG pCO2 POC ABG pO2 ABG pO2 ABG HCO3 ABG O2 Saturation ABG Base Excess ABG Hemoglobin Oxyhemoglobin Sodium Potassium Chloride Carbon Dioxide BUN Creatinine Glucose POC Glucose Lactic Acid 5.10 H* Calcium Ionized Calcium Phosphorus Magnesium Iron TIBC Ferritin Total Bilirubin Direct Bilirubin AST ALT Alkaline Phosphatase Total Creatine Kinase CK-MB (CK-2) Troponin T C-Reactive Protein Total Protein Albumin Triglycerides LDL Cholesterol Direct HDL Cholesterol Free T4 PTH Intact Urine WBC (Auto) Urine Creatinine Salicylates < 0.3 L Acetaminophen < 5.0 L Crossmatch 03/16/19 03/16/19 03/16/19 17:05 17:05 20:35 WBC RBC Hgb Hct RDW Plt Count Lymph % (Auto) Lymph # Seg Neutrophils % Seg Neuts % (Manual) Lymphocytes % (Manual) Monocytes % (Manual) Nucleated RBC % Seg Neutrophils # Seg Neutrophils # Man Lymphocytes # (Manual) Monocytes # (Manual) PT 15.9 H INR 1.30 H D-Dimer Heparin Anti-Xa Level POC ABG pH ABG pH POC ABG pCO2 POC ABG pO2 ABG pO2 ABG HCO3 ABG O2 Saturation ABG Base Excess ABG Hemoglobin Oxyhemoglobin Sodium Potassium Chloride Carbon Dioxide BUN Creatinine Glucose POC Glucose Lactic Acid 3.30 H* Calcium Ionized Calcium Phosphorus Magnesium Iron TIBC Ferritin Total Bilirubin 6.20 H Direct Bilirubin 5.9 H AST 800 H ALT 120 H Alkaline Phosphatase Total Creatine Kinase CK-MB (CK-2) Troponin T C-Reactive Protein Total Protein 4.4 L Albumin 2.4 L Triglycerides LDL Cholesterol Direct HDL Cholesterol Free T4 PTH Intact Urine WBC (Auto) Urine Creatinine Salicylates Acetaminophen Crossmatch 03/16/19 03/16/19 03/16/19 21:45 22:32 Unknown WBC RBC Hgb Hct RDW Plt Count Lymph % (Auto) Lymph # Seg Neutrophils % Seg Neuts % (Manual) Lymphocytes % (Manual) Monocytes % (Manual) Nucleated RBC % Seg Neutrophils # Seg Neutrophils # Man Lymphocytes # (Manual) Monocytes # (Manual) PT INR D-Dimer Heparin Anti-Xa Level POC ABG pH ABG pH POC ABG pCO2 POC ABG pO2 ABG pO2 ABG HCO3 ABG O2 Saturation ABG Base Excess ABG Hemoglobin Oxyhemoglobin Sodium Potassium Chloride Carbon Dioxide BUN Creatinine Glucose POC Glucose Lactic Acid 3.30 H* 3.00 H* Calcium Ionized Calcium Phosphorus Magnesium Iron TIBC Ferritin Total Bilirubin Direct Bilirubin AST ALT Alkaline Phosphatase Total Creatine Kinase CK-MB (CK-2) Troponin T 0.047 H D C-Reactive Protein Total Protein Albumin Triglycerides 395 H LDL Cholesterol Direct 10 L HDL Cholesterol 7 L Free T4 PTH Intact Urine WBC (Auto) Urine Creatinine Salicylates Acetaminophen Crossmatch 03/17/19 03/17/19 03/17/19 03:45 03:45 03:45 WBC RBC Hgb Hct RDW Plt Count Lymph % (Auto) Lymph # Seg Neutrophils % Seg Neuts % (Manual) Lymphocytes % (Manual) Monocytes % (Manual) Nucleated RBC % Seg Neutrophils # Seg Neutrophils # Man Lymphocytes # (Manual) Monocytes # (Manual) PT INR D-Dimer Heparin Anti-Xa Level POC ABG pH ABG pH POC ABG pCO2 POC ABG pO2 ABG pO2 ABG HCO3 ABG O2 Saturation ABG Base Excess ABG Hemoglobin Oxyhemoglobin Sodium 131 L Potassium Chloride 88.9 L Carbon Dioxide BUN 53 H Creatinine 7.1 H Glucose POC Glucose Lactic Acid 4.10 H* Calcium 5.4 L* D Ionized Calcium Phosphorus 7.30 H Magnesium 1.60 L Iron TIBC Ferritin Total Bilirubin 5.90 H Direct Bilirubin AST 801 H ALT 109 H Alkaline Phosphatase Total Creatine Kinase 82603 H 72049 H CK-MB (CK-2) 41.5 H Troponin T 0.054 H C-Reactive Protein Total Protein 4.5 L Albumin 2.0 L Triglycerides LDL Cholesterol Direct HDL Cholesterol Free T4 PTH Intact Urine WBC (Auto) Urine Creatinine Salicylates Acetaminophen Crossmatch 03/17/19 03/17/19 03/17/19 05:47 07:16 07:16 WBC RBC Hgb Hct RDW Plt Count Lymph % (Auto) Lymph # Seg Neutrophils % Seg Neuts % (Manual) Lymphocytes % (Manual) Monocytes % (Manual) Nucleated RBC % Seg Neutrophils # Seg Neutrophils # Man Lymphocytes # (Manual) Monocytes # (Manual) PT INR D-Dimer Heparin Anti-Xa Level POC ABG pH 7.193 L ABG pH POC ABG pCO2 45.2 H POC ABG pO2 65 L ABG pO2 ABG HCO3 ABG O2 Saturation ABG Base Excess ABG Hemoglobin Oxyhemoglobin Sodium Potassium Chloride Carbon Dioxide BUN Creatinine Glucose POC Glucose Lactic Acid 5.50 H* Calcium Ionized Calcium Phosphorus Magnesium Iron TIBC Ferritin Total Bilirubin Direct Bilirubin AST ALT Alkaline Phosphatase Total Creatine Kinase 99127 H CK-MB (CK-2) 54.3 H Troponin T 0.058 H C-Reactive Protein Total Protein Albumin Triglycerides LDL Cholesterol Direct HDL Cholesterol Free T4 PTH Intact Urine WBC (Auto) Urine Creatinine Salicylates Acetaminophen Crossmatch 03/17/19 03/17/19 03/17/19 11:52 12:51 13:01 WBC RBC Hgb Hct RDW Plt Count Lymph % (Auto) Lymph # Seg Neutrophils % Seg Neuts % (Manual) Lymphocytes % (Manual) Monocytes % (Manual) Nucleated RBC % Seg Neutrophils # Seg Neutrophils # Man Lymphocytes # (Manual) Monocytes # (Manual) PT INR D-Dimer Heparin Anti-Xa Level POC ABG pH 7.154 L ABG pH POC ABG pCO2 34.3 L POC ABG pO2 73 L ABG pO2 ABG HCO3 ABG O2 Saturation ABG Base Excess ABG Hemoglobin Oxyhemoglobin Sodium Potassium Chloride Carbon Dioxide BUN Creatinine Glucose POC Glucose 60 L Lactic Acid 8.20 H* Calcium Ionized Calcium Phosphorus Magnesium Iron TIBC Ferritin Total Bilirubin Direct Bilirubin AST ALT Alkaline Phosphatase Total Creatine Kinase CK-MB (CK-2) Troponin T C-Reactive Protein Total Protein Albumin Triglycerides LDL Cholesterol Direct HDL Cholesterol Free T4 PTH Intact Urine WBC (Auto) Urine Creatinine Salicylates Acetaminophen Crossmatch 03/17/19 03/17/19 03/17/19 14:37 14:37 14:37 WBC 29.3 H RBC Hgb Hct RDW 15.8 H Plt Count 45 L Lymph % (Auto) Lymph # Seg Neutrophils % Seg Neuts % (Manual) 81.0 H Lymphocytes % (Manual) 1.0 L Monocytes % (Manual) 15.0 H Nucleated RBC % Seg Neutrophils # Seg Neutrophils # Man 23.7 H Lymphocytes # (Manual) 0.3 L Monocytes # (Manual) 4.4 H PT INR D-Dimer Heparin Anti-Xa Level POC ABG pH ABG pH POC ABG pCO2 POC ABG pO2 ABG pO2 ABG HCO3 ABG O2 Saturation ABG Base Excess ABG Hemoglobin Oxyhemoglobin Sodium Potassium Chloride Carbon Dioxide BUN Creatinine Glucose POC Glucose Lactic Acid 4.90 H* Calcium Ionized Calcium Phosphorus Magnesium Iron TIBC Ferritin Total Bilirubin Direct Bilirubin AST ALT Alkaline Phosphatase Total Creatine Kinase CK-MB (CK-2) Troponin T C-Reactive Protein 24.90 H Total Protein Albumin Triglycerides LDL Cholesterol Direct HDL Cholesterol Free T4 PTH Intact Urine WBC (Auto) Urine Creatinine Salicylates Acetaminophen Crossmatch 03/17/19 03/17/19 03/17/19 16:05 16:05 17:02 WBC RBC Hgb Hct RDW Plt Count Lymph % (Auto) Lymph # Seg Neutrophils % Seg Neuts % (Manual) Lymphocytes % (Manual) Monocytes % (Manual) Nucleated RBC % Seg Neutrophils # Seg Neutrophils # Man Lymphocytes # (Manual) Monocytes # (Manual) PT INR D-Dimer Heparin Anti-Xa Level POC ABG pH 7.183 L ABG pH POC ABG pCO2 POC ABG pO2 65 L ABG pO2 ABG HCO3 ABG O2 Saturation ABG Base Excess ABG Hemoglobin Oxyhemoglobin Sodium Potassium Chloride Carbon Dioxide BUN Creatinine Glucose POC Glucose Lactic Acid Calcium Ionized Calcium Phosphorus Magnesium Iron TIBC Ferritin Total Bilirubin Direct Bilirubin AST ALT Alkaline Phosphatase Total Creatine Kinase CK-MB (CK-2) Troponin T C-Reactive Protein Total Protein Albumin Triglycerides LDL Cholesterol Direct HDL Cholesterol Free T4 PTH Intact Urine WBC (Auto) 30.0 H Urine Creatinine 106.6 H Salicylates Acetaminophen Crossmatch 03/18/19 03/18/19 03/18/19 05:12 05:16 05:53 WBC RBC Hgb Hct RDW Plt Count Lymph % (Auto) Lymph # Seg Neutrophils % Seg Neuts % (Manual) Lymphocytes % (Manual) Monocytes % (Manual) Nucleated RBC % Seg Neutrophils # Seg Neutrophils # Man Lymphocytes # (Manual) Monocytes # (Manual) PT INR D-Dimer Heparin Anti-Xa Level POC ABG pH 7.257 L ABG pH POC ABG pCO2 31.6 L POC ABG pO2 69 L ABG pO2 ABG HCO3 ABG O2 Saturation ABG Base Excess ABG Hemoglobin Oxyhemoglobin Sodium Potassium Chloride Carbon Dioxide BUN Creatinine Glucose POC Glucose 141 H Lactic Acid 5.00 H* Calcium Ionized Calcium Phosphorus Magnesium Iron TIBC Ferritin Total Bilirubin Direct Bilirubin AST ALT Alkaline Phosphatase Total Creatine Kinase CK-MB (CK-2) Troponin T C-Reactive Protein Total Protein Albumin Triglycerides LDL Cholesterol Direct HDL Cholesterol Free T4 PTH Intact Urine WBC (Auto) Urine Creatinine Salicylates Acetaminophen Crossmatch 03/18/19 03/18/19 03/18/19 06:57 08:40 08:40 WBC 31.7 H RBC Hgb Hct RDW 15.5 H Plt Count 35 L Lymph % (Auto) Lymph # Seg Neutrophils % Seg Neuts % (Manual) Lymphocytes % (Manual) Monocytes % (Manual) Nucleated RBC % Seg Neutrophils # Seg Neutrophils # Man Lymphocytes # (Manual) Monocytes # (Manual) PT INR D-Dimer Heparin Anti-Xa Level POC ABG pH ABG pH POC ABG pCO2 POC ABG pO2 ABG pO2 ABG HCO3 ABG O2 Saturation ABG Base Excess ABG Hemoglobin Oxyhemoglobin Sodium 132 L Potassium 5.5 H D Chloride 88.5 L Carbon Dioxide 18 L BUN 71 H Creatinine 8.1 H Glucose 205 H POC Glucose Lactic Acid 5.00 H* Calcium 4.1 L* D Ionized Calcium Phosphorus Magnesium 2.40 H Iron TIBC Ferritin Total Bilirubin 7.50 H Direct Bilirubin AST 1088 H ALT 159 H Alkaline Phosphatase 190 H Total Creatine Kinase 857748 H CK-MB (CK-2) Troponin T C-Reactive Protein Total Protein 4.7 L Albumin 1.8 L Triglycerides LDL Cholesterol Direct HDL Cholesterol Free T4 PTH Intact Urine WBC (Auto) Urine Creatinine Salicylates Acetaminophen Crossmatch 03/18/19 03/18/19 03/18/19 12:33 12:50 13:19 WBC RBC Hgb Hct RDW Plt Count Lymph % (Auto) Lymph # Seg Neutrophils % Seg Neuts % (Manual) Lymphocytes % (Manual) Monocytes % (Manual) Nucleated RBC % Seg Neutrophils # Seg Neutrophils # Man Lymphocytes # (Manual) Monocytes # (Manual) PT INR D-Dimer Heparin Anti-Xa Level POC ABG pH 7.282 L ABG pH POC ABG pCO2 POC ABG pO2 67 L ABG pO2 ABG HCO3 ABG O2 Saturation ABG Base Excess ABG Hemoglobin Oxyhemoglobin Sodium Potassium Chloride Carbon Dioxide BUN Creatinine Glucose POC Glucose 129 H Lactic Acid 3.30 H* Calcium Ionized Calcium Phosphorus Magnesium Iron TIBC Ferritin Total Bilirubin Direct Bilirubin AST ALT Alkaline Phosphatase Total Creatine Kinase CK-MB (CK-2) Troponin T C-Reactive Protein Total Protein Albumin Triglycerides LDL Cholesterol Direct HDL Cholesterol Free T4 PTH Intact Urine WBC (Auto) Urine Creatinine Salicylates Acetaminophen Crossmatch 03/18/19 03/18/19 03/18/19 13:19 16:50 18:11 WBC RBC Hgb Hct RDW Plt Count Lymph % (Auto) Lymph # Seg Neutrophils % Seg Neuts % (Manual) Lymphocytes % (Manual) Monocytes % (Manual) Nucleated RBC % Seg Neutrophils # Seg Neutrophils # Man Lymphocytes # (Manual) Monocytes # (Manual) PT INR D-Dimer Heparin Anti-Xa Level POC ABG pH ABG pH POC ABG pCO2 POC ABG pO2 59 L ABG pO2 ABG HCO3 ABG O2 Saturation ABG Base Excess ABG Hemoglobin Oxyhemoglobin Sodium Potassium Chloride Carbon Dioxide BUN Creatinine Glucose POC Glucose 151 H Lactic Acid Calcium 4.2 L* Ionized Calcium Phosphorus Magnesium Iron TIBC Ferritin Total Bilirubin Direct Bilirubin AST ALT Alkaline Phosphatase Total Creatine Kinase 324415 H CK-MB (CK-2) Troponin T C-Reactive Protein Total Protein Albumin Triglycerides LDL Cholesterol Direct HDL Cholesterol Free T4 PTH Intact Urine WBC (Auto) Urine Creatinine Salicylates Acetaminophen Crossmatch 03/18/19 03/18/19 03/19/19 18:20 23:39 01:42 WBC RBC Hgb Hct RDW Plt Count Lymph % (Auto) Lymph # Seg Neutrophils % Seg Neuts % (Manual) Lymphocytes % (Manual) Monocytes % (Manual) Nucleated RBC % Seg Neutrophils # Seg Neutrophils # Man Lymphocytes # (Manual) Monocytes # (Manual) PT INR D-Dimer Heparin Anti-Xa Level POC ABG pH 7.345 L ABG pH 7.285 L POC ABG pCO2 POC ABG pO2 59 L ABG pO2 44.0 L ABG HCO3 ABG O2 Saturation 70.9 L ABG Base Excess -5.7 L ABG Hemoglobin 11.9 L Oxyhemoglobin 69.6 L Sodium Potassium Chloride Carbon Dioxide BUN Creatinine Glucose POC Glucose 152 H Lactic Acid Calcium Ionized Calcium Phosphorus Magnesium Iron TIBC Ferritin Total Bilirubin Direct Bilirubin AST ALT Alkaline Phosphatase Total Creatine Kinase CK-MB (CK-2) Troponin T C-Reactive Protein Total Protein Albumin Triglycerides LDL Cholesterol Direct HDL Cholesterol Free T4 PTH Intact Urine WBC (Auto) Urine Creatinine Salicylates Acetaminophen Crossmatch 03/19/19 03/19/19 03/19/19 04:00 04:00 05:35 WBC 36.5 H RBC Hgb Hct RDW 15.8 H Plt Count 35 L Lymph % (Auto) Lymph # Seg Neutrophils % Seg Neuts % (Manual) Lymphocytes % (Manual) Monocytes % (Manual) Nucleated RBC % Seg Neutrophils # Seg Neutrophils # Man Lymphocytes # (Manual) Monocytes # (Manual) PT INR D-Dimer Heparin Anti-Xa Level POC ABG pH ABG pH 7.265 L POC ABG pCO2 POC ABG pO2 ABG pO2 35.4 L* ABG HCO3 ABG O2 Saturation 54.4 L ABG Base Excess -6.7 L ABG Hemoglobin 12.9 L Oxyhemoglobin 53.4 L Sodium 132 L Potassium 5.7 H Chloride 89.8 L Carbon Dioxide 19 L BUN 62 H Creatinine 6.4 H Glucose 151 H POC Glucose Lactic Acid Calcium 5.2 L* D Ionized Calcium Phosphorus Magnesium Iron TIBC Ferritin Total Bilirubin 7.80 H Direct Bilirubin AST 682 H ALT 130 H Alkaline Phosphatase 167 H Total Creatine Kinase CK-MB (CK-2) Troponin T C-Reactive Protein Total Protein 4.8 L Albumin 2.3 L Triglycerides LDL Cholesterol Direct HDL Cholesterol Free T4 PTH Intact Urine WBC (Auto) Urine Creatinine Salicylates Acetaminophen Crossmatch 03/19/19 03/19/19 03/19/19 05:49 09:16 09:50 WBC RBC Hgb Hct RDW Plt Count Lymph % (Auto) Lymph # Seg Neutrophils % Seg Neuts % (Manual) Lymphocytes % (Manual) Monocytes % (Manual) Nucleated RBC % Seg Neutrophils # Seg Neutrophils # Man Lymphocytes # (Manual) Monocytes # (Manual) PT INR D-Dimer Heparin Anti-Xa Level POC ABG pH 7.222 L ABG pH POC ABG pCO2 56.6 H POC ABG pO2 ABG pO2 ABG HCO3 ABG O2 Saturation ABG Base Excess ABG Hemoglobin Oxyhemoglobin Sodium Potassium Chloride Carbon Dioxide BUN Creatinine Glucose POC Glucose 154 H Lactic Acid 2.70 H* Calcium Ionized Calcium Phosphorus Magnesium Iron TIBC Ferritin Total Bilirubin Direct Bilirubin AST ALT Alkaline Phosphatase Total Creatine Kinase CK-MB (CK-2) Troponin T C-Reactive Protein Total Protein Albumin Triglycerides LDL Cholesterol Direct HDL Cholesterol Free T4 PTH Intact Urine WBC (Auto) Urine Creatinine Salicylates Acetaminophen Crossmatch 03/19/19 03/19/19 03/19/19 09:50 11:28 17:58 WBC RBC Hgb Hct RDW Plt Count Lymph % (Auto) Lymph # Seg Neutrophils % Seg Neuts % (Manual) Lymphocytes % (Manual) Monocytes % (Manual) Nucleated RBC % Seg Neutrophils # Seg Neutrophils # Man Lymphocytes # (Manual) Monocytes # (Manual) PT INR D-Dimer Heparin Anti-Xa Level POC ABG pH 7.250 L ABG pH POC ABG pCO2 52.6 H POC ABG pO2 ABG pO2 ABG HCO3 ABG O2 Saturation ABG Base Excess ABG Hemoglobin Oxyhemoglobin Sodium Potassium Chloride Carbon Dioxide BUN Creatinine Glucose POC Glucose 160 H Lactic Acid Calcium Ionized Calcium Phosphorus Magnesium Iron TIBC Ferritin Total Bilirubin Direct Bilirubin AST ALT Alkaline Phosphatase Total Creatine Kinase 86469 H CK-MB (CK-2) Troponin T C-Reactive Protein Total Protein Albumin Triglycerides LDL Cholesterol Direct HDL Cholesterol Free T4 PTH Intact Urine WBC (Auto) Urine Creatinine Salicylates Acetaminophen Crossmatch 03/19/19 03/19/19 03/20/19 19:48 21:03 02:16 WBC RBC Hgb Hct RDW Plt Count Lymph % (Auto) Lymph # Seg Neutrophils % Seg Neuts % (Manual) Lymphocytes % (Manual) Monocytes % (Manual) Nucleated RBC % Seg Neutrophils # Seg Neutrophils # Man Lymphocytes # (Manual) Monocytes # (Manual) PT INR D-Dimer Heparin Anti-Xa Level POC ABG pH 7.279 L ABG pH POC ABG pCO2 50.3 H POC ABG pO2 129 H ABG pO2 ABG HCO3 ABG O2 Saturation ABG Base Excess ABG Hemoglobin Oxyhemoglobin Sodium Potassium Chloride Carbon Dioxide BUN Creatinine Glucose POC Glucose 119 H 119 H Lactic Acid Calcium Ionized Calcium Phosphorus Magnesium Iron TIBC Ferritin Total Bilirubin Direct Bilirubin AST ALT Alkaline Phosphatase Total Creatine Kinase CK-MB (CK-2) Troponin T C-Reactive Protein Total Protein Albumin Triglycerides LDL Cholesterol Direct HDL Cholesterol Free T4 PTH Intact Urine WBC (Auto) Urine Creatinine Salicylates Acetaminophen Crossmatch 03/20/19 03/20/19 03/20/19 04:23 05:05 09:30 WBC 36.3 H RBC Hgb Hct RDW 15.5 H Plt Count 29 L Lymph % (Auto) Lymph # Seg Neutrophils % Seg Neuts % (Manual) Lymphocytes % (Manual) Monocytes % (Manual) Nucleated RBC % Seg Neutrophils # Seg Neutrophils # Man Lymphocytes # (Manual) Monocytes # (Manual) PT INR D-Dimer Heparin Anti-Xa Level POC ABG pH ABG pH POC ABG pCO2 POC ABG pO2 280 H ABG pO2 ABG HCO3 ABG O2 Saturation ABG Base Excess ABG Hemoglobin Oxyhemoglobin Sodium Potassium Chloride Carbon Dioxide BUN Creatinine Glucose POC Glucose 115 H Lactic Acid Calcium Ionized Calcium Phosphorus Magnesium Iron TIBC Ferritin Total Bilirubin Direct Bilirubin AST ALT Alkaline Phosphatase Total Creatine Kinase CK-MB (CK-2) Troponin T C-Reactive Protein Total Protein Albumin Triglycerides LDL Cholesterol Direct HDL Cholesterol Free T4 PTH Intact Urine WBC (Auto) Urine Creatinine Salicylates Acetaminophen Crossmatch 03/20/19 03/20/19 03/20/19 09:30 09:30 11:34 WBC RBC Hgb Hct RDW Plt Count Lymph % (Auto) Lymph # Seg Neutrophils % Seg Neuts % (Manual) Lymphocytes % (Manual) Monocytes % (Manual) Nucleated RBC % Seg Neutrophils # Seg Neutrophils # Man Lymphocytes # (Manual) Monocytes # (Manual) PT INR D-Dimer Heparin Anti-Xa Level POC ABG pH ABG pH POC ABG pCO2 POC ABG pO2 ABG pO2 ABG HCO3 ABG O2 Saturation ABG Base Excess ABG Hemoglobin Oxyhemoglobin Sodium 131 L Potassium Chloride 92.3 L Carbon Dioxide 20 L BUN 68 H Creatinine 6.1 H Glucose 164 H POC Glucose 141 H Lactic Acid Calcium 5.3 L* Ionized Calcium Phosphorus Magnesium Iron TIBC Ferritin Total Bilirubin 9.50 H Direct Bilirubin AST 381 H ALT 116 H Alkaline Phosphatase 255 H Total Creatine Kinase 13739 H CK-MB (CK-2) Troponin T C-Reactive Protein Total Protein 5.1 L Albumin 2.3 L Triglycerides LDL Cholesterol Direct HDL Cholesterol Free T4 PTH Intact Urine WBC (Auto) Urine Creatinine Salicylates Acetaminophen Crossmatch 03/20/19 03/20/19 03/20/19 14:41 14:45 18:50 WBC RBC Hgb Hct RDW Plt Count Lymph % (Auto) Lymph # Seg Neutrophils % Seg Neuts % (Manual) Lymphocytes % (Manual) Monocytes % (Manual) Nucleated RBC % Seg Neutrophils # Seg Neutrophils # Man Lymphocytes # (Manual) Monocytes # (Manual) PT INR D-Dimer Heparin Anti-Xa Level POC ABG pH ABG pH POC ABG pCO2 POC ABG pO2 ABG pO2 ABG HCO3 ABG O2 Saturation ABG Base Excess ABG Hemoglobin Oxyhemoglobin Sodium Potassium Chloride Carbon Dioxide BUN Creatinine Glucose POC Glucose 117 H Lactic Acid 2.90 H* Calcium Ionized Calcium Phosphorus Magnesium Iron TIBC Ferritin Total Bilirubin Direct Bilirubin AST ALT Alkaline Phosphatase Total Creatine Kinase CK-MB (CK-2) Troponin T C-Reactive Protein 13.30 H Total Protein Albumin Triglycerides LDL Cholesterol Direct HDL Cholesterol Free T4 PTH Intact Urine WBC (Auto) Urine Creatinine Salicylates Acetaminophen Crossmatch 03/20/19 03/21/19 03/21/19 21:55 04:26 04:26 WBC 37.8 H RBC Hgb Hct RDW 15.4 H Plt Count 36 L Lymph % (Auto) Lymph # Seg Neutrophils % Seg Neuts % (Manual) 93.0 H Lymphocytes % (Manual) 3.0 L Monocytes % (Manual) Nucleated RBC % 1.0 H Seg Neutrophils # 34.6 H Seg Neutrophils # Man 35.2 H Lymphocytes # (Manual) 1.1 L Monocytes # (Manual) PT INR D-Dimer Heparin Anti-Xa Level POC ABG pH ABG pH POC ABG pCO2 POC ABG pO2 ABG pO2 ABG HCO3 ABG O2 Saturation ABG Base Excess ABG Hemoglobin Oxyhemoglobin Sodium 131 L Potassium Chloride 90.7 L Carbon Dioxide 21 L BUN 69 H Creatinine 5.7 H Glucose 170 H POC Glucose 128 H Lactic Acid Calcium 6.1 L D Ionized Calcium Phosphorus Magnesium Iron TIBC Ferritin Total Bilirubin 9.50 H Direct Bilirubin AST 308 H ALT 124 H Alkaline Phosphatase 327 H Total Creatine Kinase 85221 H CK-MB (CK-2) Troponin T C-Reactive Protein Total Protein 5.7 L Albumin 2.6 L Triglycerides LDL Cholesterol Direct HDL Cholesterol Free T4 PTH Intact Urine WBC (Auto) Urine Creatinine Salicylates Acetaminophen Crossmatch 03/21/19 03/21/19 03/21/19 05:17 05:39 08:29 WBC RBC Hgb Hct RDW Plt Count Lymph % (Auto) Lymph # Seg Neutrophils % Seg Neuts % (Manual) Lymphocytes % (Manual) Monocytes % (Manual) Nucleated RBC % Seg Neutrophils # Seg Neutrophils # Man Lymphocytes # (Manual) Monocytes # (Manual) PT INR D-Dimer Heparin Anti-Xa Level POC ABG pH ABG pH POC ABG pCO2 POC ABG pO2 209 H ABG pO2 ABG HCO3 ABG O2 Saturation ABG Base Excess ABG Hemoglobin Oxyhemoglobin Sodium Potassium Chloride Carbon Dioxide BUN Creatinine Glucose POC Glucose 145 H Lactic Acid Calcium Ionized Calcium Phosphorus Magnesium Iron TIBC Ferritin Total Bilirubin Direct Bilirubin AST ALT Alkaline Phosphatase Total Creatine Kinase 89176 H CK-MB (CK-2) Troponin T C-Reactive Protein Total Protein Albumin Triglycerides LDL Cholesterol Direct HDL Cholesterol Free T4 PTH Intact Urine WBC (Auto) Urine Creatinine Salicylates Acetaminophen Crossmatch 03/21/19 03/21/19 03/21/19 08:29 11:43 12:00 WBC RBC Hgb Hct RDW Plt Count Lymph % (Auto) Lymph # Seg Neutrophils % Seg Neuts % (Manual) Lymphocytes % (Manual) Monocytes % (Manual) Nucleated RBC % Seg Neutrophils # Seg Neutrophils # Man Lymphocytes # (Manual) Monocytes # (Manual) PT INR D-Dimer Heparin Anti-Xa Level POC ABG pH ABG pH POC ABG pCO2 POC ABG pO2 ABG pO2 ABG HCO3 ABG O2 Saturation ABG Base Excess ABG Hemoglobin Oxyhemoglobin Sodium Potassium Chloride Carbon Dioxide BUN Creatinine Glucose POC Glucose 123 H Lactic Acid 2.60 H* 2.20 H* Calcium Ionized Calcium Phosphorus Magnesium Iron TIBC Ferritin Total Bilirubin Direct Bilirubin AST ALT Alkaline Phosphatase Total Creatine Kinase CK-MB (CK-2) Troponin T C-Reactive Protein Total Protein Albumin Triglycerides LDL Cholesterol Direct HDL Cholesterol Free T4 PTH Intact Urine WBC (Auto) Urine Creatinine Salicylates Acetaminophen Crossmatch 03/21/19 03/21/19 03/21/19 14:11 18:28 19:32 WBC RBC Hgb Hct RDW Plt Count Lymph % (Auto) Lymph # Seg Neutrophils % Seg Neuts % (Manual) Lymphocytes % (Manual) Monocytes % (Manual) Nucleated RBC % Seg Neutrophils # Seg Neutrophils # Man Lymphocytes # (Manual) Monocytes # (Manual) PT INR D-Dimer Heparin Anti-Xa Level POC ABG pH 7.293 L ABG pH POC ABG pCO2 POC ABG pO2 ABG pO2 ABG HCO3 ABG O2 Saturation ABG Base Excess ABG Hemoglobin Oxyhemoglobin Sodium Potassium Chloride Carbon Dioxide BUN Creatinine Glucose POC Glucose 153 H Lactic Acid 2.10 H* Calcium Ionized Calcium Phosphorus Magnesium Iron TIBC Ferritin Total Bilirubin Direct Bilirubin AST ALT Alkaline Phosphatase Total Creatine Kinase CK-MB (CK-2) Troponin T C-Reactive Protein Total Protein Albumin Triglycerides LDL Cholesterol Direct HDL Cholesterol Free T4 PTH Intact Urine WBC (Auto) Urine Creatinine Salicylates Acetaminophen Crossmatch 03/21/19 03/22/19 03/22/19 23:38 05:08 05:51 WBC RBC Hgb Hct RDW Plt Count Lymph % (Auto) Lymph # Seg Neutrophils % Seg Neuts % (Manual) Lymphocytes % (Manual) Monocytes % (Manual) Nucleated RBC % Seg Neutrophils # Seg Neutrophils # Man Lymphocytes # (Manual) Monocytes # (Manual) PT INR D-Dimer Heparin Anti-Xa Level POC ABG pH 7.283 L ABG pH POC ABG pCO2 POC ABG pO2 53 L ABG pO2 ABG HCO3 ABG O2 Saturation ABG Base Excess ABG Hemoglobin Oxyhemoglobin Sodium Potassium Chloride Carbon Dioxide BUN Creatinine Glucose POC Glucose 149 H 131 H Lactic Acid Calcium Ionized Calcium Phosphorus Magnesium Iron TIBC Ferritin Total Bilirubin Direct Bilirubin AST ALT Alkaline Phosphatase Total Creatine Kinase CK-MB (CK-2) Troponin T C-Reactive Protein Total Protein Albumin Triglycerides LDL Cholesterol Direct HDL Cholesterol Free T4 PTH Intact Urine WBC (Auto) Urine Creatinine Salicylates Acetaminophen Crossmatch 03/22/19 03/22/19 03/22/19 08:00 08:00 18:19 WBC 36.7 H RBC Hgb 11.0 L Hct 33.5 L RDW 15.5 H Plt Count 43 L Lymph % (Auto) Lymph # Seg Neutrophils % Seg Neuts % (Manual) 87.0 H Lymphocytes % (Manual) 7.0 L Monocytes % (Manual) Nucleated RBC % Seg Neutrophils # Seg Neutrophils # Man 31.9 H Lymphocytes # (Manual) Monocytes # (Manual) PT INR D-Dimer Heparin Anti-Xa Level POC ABG pH ABG pH POC ABG pCO2 46.4 H POC ABG pO2 108 H ABG pO2 ABG HCO3 ABG O2 Saturation ABG Base Excess ABG Hemoglobin Oxyhemoglobin Sodium 132 L Potassium 5.6 H Chloride 89.6 L Carbon Dioxide 20 L BUN 101 H Creatinine 7.4 H Glucose 124 H POC Glucose Lactic Acid Calcium 5.2 L* Ionized Calcium Phosphorus Magnesium Iron TIBC Ferritin Total Bilirubin 2.80 H Direct Bilirubin AST 119 H ALT 86 H Alkaline Phosphatase 245 H Total Creatine Kinase CK-MB (CK-2) Troponin T C-Reactive Protein Total Protein 5.6 L Albumin 2.5 L Triglycerides LDL Cholesterol Direct HDL Cholesterol Free T4 PTH Intact Urine WBC (Auto) Urine Creatinine Salicylates Acetaminophen Crossmatch 03/22/19 03/23/19 03/23/19 20:37 04:49 05:28 WBC 35.9 H RBC Hgb 10.8 L Hct 33.2 L RDW 15.5 H Plt Count 49 L Lymph % (Auto) Lymph # Seg Neutrophils % Seg Neuts % (Manual) 81.0 H Lymphocytes % (Manual) 3.5 L Monocytes % (Manual) Nucleated RBC % Seg Neutrophils # Seg Neutrophils # Man 29.1 H Lymphocytes # (Manual) Monocytes # (Manual) 1.4 H PT INR D-Dimer Heparin Anti-Xa Level POC ABG pH 7.296 L ABG pH POC ABG pCO2 46.2 H POC ABG pO2 ABG pO2 ABG HCO3 ABG O2 Saturation ABG Base Excess ABG Hemoglobin Oxyhemoglobin Sodium 129 L Potassium 5.2 H Chloride 91.1 L Carbon Dioxide BUN 91 H Creatinine 6.6 H Glucose 190 H POC Glucose Lactic Acid Calcium 5.3 L* Ionized Calcium Phosphorus Magnesium Iron TIBC Ferritin Total Bilirubin 1.80 H Direct Bilirubin AST 80 H ALT 62 H Alkaline Phosphatase 209 H Total Creatine Kinase 9758 H CK-MB (CK-2) Troponin T C-Reactive Protein Total Protein 5.2 L Albumin 2.2 L Triglycerides LDL Cholesterol Direct HDL Cholesterol Free T4 PTH Intact Urine WBC (Auto) Urine Creatinine Salicylates Acetaminophen Crossmatch 03/23/19 03/23/19 03/23/19 05:28 05:31 11:33 WBC 29.7 H RBC 3.59 L Hgb 10.1 L Hct 31.1 L RDW 15.4 H Plt Count 47 L Lymph % (Auto) Lymph # Seg Neutrophils % Seg Neuts % (Manual) 89.0 H Lymphocytes % (Manual) 6.0 L Monocytes % (Manual) Nucleated RBC % 1.0 H Seg Neutrophils # Seg Neutrophils # Man 26.4 H Lymphocytes # (Manual) Monocytes # (Manual) PT INR D-Dimer Heparin Anti-Xa Level POC ABG pH ABG pH POC ABG pCO2 POC ABG pO2 ABG pO2 ABG HCO3 ABG O2 Saturation ABG Base Excess ABG Hemoglobin Oxyhemoglobin Sodium Potassium Chloride Carbon Dioxide BUN Creatinine Glucose POC Glucose 122 H 113 H Lactic Acid Calcium Ionized Calcium Phosphorus Magnesium Iron TIBC Ferritin Total Bilirubin Direct Bilirubin AST ALT Alkaline Phosphatase Total Creatine Kinase CK-MB (CK-2) Troponin T C-Reactive Protein Total Protein Albumin Triglycerides LDL Cholesterol Direct HDL Cholesterol Free T4 PTH Intact Urine WBC (Auto) Urine Creatinine Salicylates Acetaminophen Crossmatch 03/23/19 03/24/19 03/24/19 17:47 00:00 04:50 WBC 35.0 H RBC Hgb 10.4 L Hct 32.4 L RDW Plt Count 60 L Lymph % (Auto) Lymph # Seg Neutrophils % Seg Neuts % (Manual) 93.0 H Lymphocytes % (Manual) 5.0 L Monocytes % (Manual) Nucleated RBC % 7.0 H Seg Neutrophils # Seg Neutrophils # Man 32.6 H Lymphocytes # (Manual) Monocytes # (Manual) PT INR D-Dimer Heparin Anti-Xa Level POC ABG pH ABG pH POC ABG pCO2 POC ABG pO2 ABG pO2 ABG HCO3 ABG O2 Saturation ABG Base Excess ABG Hemoglobin Oxyhemoglobin Sodium Potassium Chloride Carbon Dioxide BUN Creatinine Glucose POC Glucose 111 H 108 H Lactic Acid Calcium Ionized Calcium Phosphorus Magnesium Iron TIBC Ferritin Total Bilirubin Direct Bilirubin AST ALT Alkaline Phosphatase Total Creatine Kinase CK-MB (CK-2) Troponin T C-Reactive Protein Total Protein Albumin Triglycerides LDL Cholesterol Direct HDL Cholesterol Free T4 PTH Intact Urine WBC (Auto) Urine Creatinine Salicylates Acetaminophen Crossmatch 03/24/19 03/24/19 03/24/19 04:50 05:06 12:55 WBC RBC Hgb Hct RDW Plt Count Lymph % (Auto) Lymph # Seg Neutrophils % Seg Neuts % (Manual) Lymphocytes % (Manual) Monocytes % (Manual) Nucleated RBC % Seg Neutrophils # Seg Neutrophils # Man Lymphocytes # (Manual) Monocytes # (Manual) PT INR D-Dimer Heparin Anti-Xa Level POC ABG pH ABG pH POC ABG pCO2 POC ABG pO2 ABG pO2 ABG HCO3 ABG O2 Saturation ABG Base Excess ABG Hemoglobin Oxyhemoglobin Sodium 134 L Potassium 5.1 H Chloride 95.3 L Carbon Dioxide 21 L BUN 85 H Creatinine 6.4 H Glucose 109 H POC Glucose 112 H 110 H Lactic Acid Calcium 5.8 L* Ionized Calcium Phosphorus Magnesium Iron TIBC Ferritin Total Bilirubin Direct Bilirubin AST ALT Alkaline Phosphatase Total Creatine Kinase 5747 H CK-MB (CK-2) Troponin T C-Reactive Protein Total Protein Albumin Triglycerides LDL Cholesterol Direct HDL Cholesterol Free T4 PTH Intact Urine WBC (Auto) Urine Creatinine Salicylates Acetaminophen Crossmatch 03/24/19 03/25/19 03/25/19 23:29 05:00 05:00 WBC RBC Hgb Hct RDW Plt Count Lymph % (Auto) Lymph # Seg Neutrophils % Seg Neuts % (Manual) Lymphocytes % (Manual) Monocytes % (Manual) Nucleated RBC % Seg Neutrophils # Seg Neutrophils # Man Lymphocytes # (Manual) Monocytes # (Manual) PT INR D-Dimer Heparin Anti-Xa Level POC ABG pH ABG pH POC ABG pCO2 POC ABG pO2 ABG pO2 ABG HCO3 ABG O2 Saturation ABG Base Excess ABG Hemoglobin Oxyhemoglobin Sodium 133 L Potassium Chloride 94.0 L Carbon Dioxide 21 L BUN 81 H Creatinine 6.4 H Glucose POC Glucose 109 H Lactic Acid Calcium 5.5 L* Ionized Calcium Phosphorus Magnesium Iron TIBC Ferritin Total Bilirubin Direct Bilirubin AST 80 H ALT Alkaline Phosphatase 202 H Total Creatine Kinase 3589 H CK-MB (CK-2) Troponin T C-Reactive Protein Total Protein 5.3 L Albumin 2.4 L Triglycerides LDL Cholesterol Direct HDL Cholesterol Free T4 PTH Intact 329.9 H Urine WBC (Auto) Urine Creatinine Salicylates Acetaminophen Crossmatch 03/25/19 03/25/19 03/26/19 05:00 06:30 04:30 WBC 23.3 H RBC 3.61 L Hgb 10.2 L Hct 31.2 L RDW Plt Count 57 L Lymph % (Auto) Lymph # Seg Neutrophils % Seg Neuts % (Manual) 92.0 H Lymphocytes % (Manual) 6.0 L Monocytes % (Manual) Nucleated RBC % Seg Neutrophils # Seg Neutrophils # Man 21.4 H Lymphocytes # (Manual) Monocytes # (Manual) PT INR D-Dimer Heparin Anti-Xa Level POC ABG pH ABG pH 7.326 L POC ABG pCO2 POC ABG pO2 ABG pO2 109.5 H 137.4 H ABG HCO3 18.8 L 18.6 L ABG O2 Saturation ABG Base Excess -4.4 L -6.8 L ABG Hemoglobin 10.1 L 9.9 L Oxyhemoglobin Sodium Potassium Chloride Carbon Dioxide BUN Creatinine Glucose POC Glucose Lactic Acid Calcium Ionized Calcium Phosphorus Magnesium Iron TIBC Ferritin Total Bilirubin Direct Bilirubin AST ALT Alkaline Phosphatase Total Creatine Kinase CK-MB (CK-2) Troponin T C-Reactive Protein Total Protein Albumin Triglycerides LDL Cholesterol Direct HDL Cholesterol Free T4 PTH Intact Urine WBC (Auto) Urine Creatinine Salicylates Acetaminophen Crossmatch 03/26/19 03/26/19 03/26/19 23:22 Unknown Unknown WBC 19.5 H RBC 3.44 L Hgb 9.8 L Hct 29.9 L RDW Plt Count 85 L Lymph % (Auto) Lymph # Seg Neutrophils % Seg Neuts % (Manual) 95.0 H Lymphocytes % (Manual) 3.0 L Monocytes % (Manual) Nucleated RBC % Seg Neutrophils # Seg Neutrophils # Man 18.5 H Lymphocytes # (Manual) 0.6 L Monocytes # (Manual) PT INR D-Dimer Heparin Anti-Xa Level POC ABG pH ABG pH POC ABG pCO2 POC ABG pO2 ABG pO2 ABG HCO3 ABG O2 Saturation ABG Base Excess ABG Hemoglobin Oxyhemoglobin Sodium 135 L Potassium 5.2 H D Chloride 92.2 L Carbon Dioxide 18 L BUN 109 H Creatinine 8.5 H Glucose 117 H POC Glucose 69 L Lactic Acid Calcium 4.5 L* D Ionized Calcium Phosphorus Magnesium Iron TIBC Ferritin Total Bilirubin Direct Bilirubin AST ALT Alkaline Phosphatase Total Creatine Kinase 4527 H CK-MB (CK-2) Troponin T C-Reactive Protein Total Protein Albumin Triglycerides LDL Cholesterol Direct HDL Cholesterol Free T4 PTH Intact Urine WBC (Auto) Urine Creatinine Salicylates Acetaminophen Crossmatch 03/27/19 03/27/19 03/27/19 04:30 04:30 09:00 WBC 19.2 H RBC 3.42 L Hgb 9.9 L Hct 30.0 L RDW Plt Count 84 L Lymph % (Auto) Lymph # Seg Neutrophils % Seg Neuts % (Manual) Lymphocytes % (Manual) Monocytes % (Manual) Nucleated RBC % Seg Neutrophils # Seg Neutrophils # Man Lymphocytes # (Manual) Monocytes # (Manual) PT INR D-Dimer Heparin Anti-Xa Level POC ABG pH ABG pH POC ABG pCO2 POC ABG pO2 ABG pO2 ABG HCO3 ABG O2 Saturation ABG Base Excess ABG Hemoglobin Oxyhemoglobin Sodium 135 L Potassium Chloride 93.5 L Carbon Dioxide BUN 84 H Creatinine 7.1 H Glucose POC Glucose Lactic Acid Calcium 5.0 L* Ionized Calcium Phosphorus Magnesium Iron TIBC Ferritin Total Bilirubin Direct Bilirubin AST 78 H ALT Alkaline Phosphatase 135 H Total Creatine Kinase 4677 H CK-MB (CK-2) Troponin T C-Reactive Protein Total Protein 4.8 L Albumin 2.3 L Triglycerides 409 H LDL Cholesterol Direct HDL Cholesterol Free T4 PTH Intact Urine WBC (Auto) Urine Creatinine Salicylates Acetaminophen Crossmatch 03/27/19 03/27/19 03/27/19 12:37 14:15 14:15 WBC RBC Hgb 9.7 L Hct 29.5 L RDW Plt Count 87 L Lymph % (Auto) Lymph # Seg Neutrophils % Seg Neuts % (Manual) Lymphocytes % (Manual) Monocytes % (Manual) Nucleated RBC % Seg Neutrophils # Seg Neutrophils # Man Lymphocytes # (Manual) Monocytes # (Manual) PT 15.9 H INR 1.30 H D-Dimer Heparin Anti-Xa Level POC ABG pH ABG pH POC ABG pCO2 POC ABG pO2 ABG pO2 ABG HCO3 ABG O2 Saturation ABG Base Excess ABG Hemoglobin Oxyhemoglobin Sodium Potassium Chloride Carbon Dioxide BUN Creatinine Glucose POC Glucose 129 H Lactic Acid Calcium Ionized Calcium Phosphorus Magnesium Iron TIBC Ferritin Total Bilirubin Direct Bilirubin AST ALT Alkaline Phosphatase Total Creatine Kinase CK-MB (CK-2) Troponin T C-Reactive Protein Total Protein Albumin Triglycerides LDL Cholesterol Direct HDL Cholesterol Free T4 PTH Intact Urine WBC (Auto) Urine Creatinine Salicylates Acetaminophen Crossmatch 03/27/19 03/27/19 03/27/19 18:00 19:22 19:23 WBC RBC Hgb Hct RDW Plt Count Lymph % (Auto) Lymph # Seg Neutrophils % Seg Neuts % (Manual) Lymphocytes % (Manual) Monocytes % (Manual) Nucleated RBC % Seg Neutrophils # Seg Neutrophils # Man Lymphocytes # (Manual) Monocytes # (Manual) PT INR D-Dimer Heparin Anti-Xa Level < 0.10 L POC ABG pH ABG pH POC ABG pCO2 POC ABG pO2 ABG pO2 ABG HCO3 ABG O2 Saturation ABG Base Excess ABG Hemoglobin Oxyhemoglobin Sodium Potassium Chloride Carbon Dioxide BUN Creatinine Glucose POC Glucose 121 H Lactic Acid Calcium Ionized Calcium Phosphorus Magnesium Iron TIBC Ferritin Total Bilirubin Direct Bilirubin AST ALT Alkaline Phosphatase Total Creatine Kinase 4517 H CK-MB (CK-2) Troponin T C-Reactive Protein Total Protein Albumin Triglycerides LDL Cholesterol Direct HDL Cholesterol Free T4 PTH Intact Urine WBC (Auto) Urine Creatinine Salicylates Acetaminophen Crossmatch 03/27/19 03/27/19 03/28/19 22:10 23:52 03:49 WBC RBC Hgb Hct RDW Plt Count Lymph % (Auto) Lymph # Seg Neutrophils % Seg Neuts % (Manual) Lymphocytes % (Manual) Monocytes % (Manual) Nucleated RBC % Seg Neutrophils # Seg Neutrophils # Man Lymphocytes # (Manual) Monocytes # (Manual) PT INR D-Dimer Heparin Anti-Xa Level POC ABG pH 7.338 L ABG pH POC ABG pCO2 33.1 L POC ABG pO2 ABG pO2 ABG HCO3 ABG O2 Saturation ABG Base Excess ABG Hemoglobin Oxyhemoglobin Sodium Potassium Chloride Carbon Dioxide BUN Creatinine Glucose POC Glucose 113 H 117 H Lactic Acid Calcium Ionized Calcium Phosphorus Magnesium Iron TIBC Ferritin Total Bilirubin Direct Bilirubin AST ALT Alkaline Phosphatase Total Creatine Kinase CK-MB (CK-2) Troponin T C-Reactive Protein Total Protein Albumin Triglycerides LDL Cholesterol Direct HDL Cholesterol Free T4 PTH Intact Urine WBC (Auto) Urine Creatinine Salicylates Acetaminophen Crossmatch 03/28/19 03/28/19 03/28/19 05:13 05:13 06:18 WBC RBC Hgb Hct RDW Plt Count Lymph % (Auto) Lymph # Seg Neutrophils % Seg Neuts % (Manual) Lymphocytes % (Manual) Monocytes % (Manual) Nucleated RBC % Seg Neutrophils # Seg Neutrophils # Man Lymphocytes # (Manual) Monocytes # (Manual) PT INR D-Dimer Heparin Anti-Xa Level 0.23 L POC ABG pH ABG pH POC ABG pCO2 POC ABG pO2 ABG pO2 ABG HCO3 ABG O2 Saturation ABG Base Excess ABG Hemoglobin Oxyhemoglobin Sodium 135 L Potassium 5.5 H D Chloride 95.1 L Carbon Dioxide 16 L D BUN 129 H Creatinine 9.3 H Glucose 158 H POC Glucose 202 H Lactic Acid Calcium 4.0 L* D Ionized Calcium Phosphorus 12.40 H Magnesium Iron TIBC Ferritin Total Bilirubin Direct Bilirubin AST ALT Alkaline Phosphatase Total Creatine Kinase 4266 H CK-MB (CK-2) Troponin T C-Reactive Protein Total Protein Albumin Triglycerides LDL Cholesterol Direct HDL Cholesterol Free T4 PTH Intact Urine WBC (Auto) Urine Creatinine Salicylates Acetaminophen Crossmatch 03/28/19 03/28/19 03/28/19 08:25 10:00 12:00 WBC RBC Hgb 4.9 L* D Hct 15.4 L* D RDW Plt Count Lymph % (Auto) Lymph # Seg Neutrophils % Seg Neuts % (Manual) Lymphocytes % (Manual) Monocytes % (Manual) Nucleated RBC % Seg Neutrophils # Seg Neutrophils # Man Lymphocytes # (Manual) Monocytes # (Manual) PT 17.9 H INR 1.52 H D-Dimer 4845.98 H Heparin Anti-Xa Level POC ABG pH ABG pH POC ABG pCO2 POC ABG pO2 ABG pO2 ABG HCO3 ABG O2 Saturation ABG Base Excess ABG Hemoglobin Oxyhemoglobin Sodium Potassium Chloride Carbon Dioxide BUN Creatinine Glucose POC Glucose Lactic Acid Calcium Ionized Calcium Phosphorus Magnesium Iron TIBC Ferritin Total Bilirubin Direct Bilirubin AST ALT Alkaline Phosphatase Total Creatine Kinase CK-MB (CK-2) Troponin T C-Reactive Protein Total Protein Albumin Triglycerides LDL Cholesterol Direct HDL Cholesterol Free T4 PTH Intact Urine WBC (Auto) Urine Creatinine Salicylates Acetaminophen Crossmatch See Detail 03/28/19 03/28/19 03/28/19 12:28 14:10 17:43 WBC RBC Hgb 5.9 L* Hct 18.3 L* RDW Plt Count Lymph % (Auto) Lymph # Seg Neutrophils % Seg Neuts % (Manual) Lymphocytes % (Manual) Monocytes % (Manual) Nucleated RBC % Seg Neutrophils # Seg Neutrophils # Man Lymphocytes # (Manual) Monocytes # (Manual) PT INR D-Dimer Heparin Anti-Xa Level POC ABG pH ABG pH POC ABG pCO2 POC ABG pO2 ABG pO2 ABG HCO3 ABG O2 Saturation ABG Base Excess ABG Hemoglobin Oxyhemoglobin Sodium Potassium Chloride Carbon Dioxide BUN Creatinine Glucose POC Glucose 153 H 159 H Lactic Acid Calcium Ionized Calcium Phosphorus Magnesium Iron TIBC Ferritin Total Bilirubin Direct Bilirubin AST ALT Alkaline Phosphatase Total Creatine Kinase CK-MB (CK-2) Troponin T C-Reactive Protein Total Protein Albumin Triglycerides LDL Cholesterol Direct HDL Cholesterol Free T4 PTH Intact Urine WBC (Auto) Urine Creatinine Salicylates Acetaminophen Crossmatch 03/28/19 03/28/19 03/28/19 18:10 Unknown 23:59 WBC 24.8 H RBC 3.42 L Hgb 10.2 L D Hct 31.1 L D RDW 15.4 H Plt Count 54 L Lymph % (Auto) Lymph # Seg Neutrophils % Seg Neuts % (Manual) 91.0 H Lymphocytes % (Manual) 8.0 L Monocytes % (Manual) Nucleated RBC % Seg Neutrophils # Seg Neutrophils # Man 22.6 H Lymphocytes # (Manual) Monocytes # (Manual) PT INR D-Dimer Heparin Anti-Xa Level POC ABG pH ABG pH POC ABG pCO2 POC ABG pO2 ABG pO2 ABG HCO3 ABG O2 Saturation ABG Base Excess ABG Hemoglobin Oxyhemoglobin Sodium Potassium 5.7 H Chloride Carbon Dioxide BUN Creatinine Glucose POC Glucose 107 H Lactic Acid Calcium Ionized Calcium Phosphorus Magnesium Iron TIBC Ferritin Total Bilirubin Direct Bilirubin AST ALT Alkaline Phosphatase Total Creatine Kinase CK-MB (CK-2) Troponin T C-Reactive Protein Total Protein Albumin Triglycerides LDL Cholesterol Direct HDL Cholesterol Free T4 PTH Intact Urine WBC (Auto) Urine Creatinine Salicylates Acetaminophen Crossmatch 03/29/19 03/29/19 03/29/19 04:29 05:46 06:22 WBC RBC Hgb 8.6 L Hct 25.7 L RDW Plt Count 93 L Lymph % (Auto) Lymph # Seg Neutrophils % Seg Neuts % (Manual) Lymphocytes % (Manual) Monocytes % (Manual) Nucleated RBC % Seg Neutrophils # Seg Neutrophils # Man Lymphocytes # (Manual) Monocytes # (Manual) PT INR D-Dimer Heparin Anti-Xa Level POC ABG pH ABG pH POC ABG pCO2 32.2 L POC ABG pO2 ABG pO2 ABG HCO3 ABG O2 Saturation ABG Base Excess ABG Hemoglobin Oxyhemoglobin Sodium Potassium Chloride Carbon Dioxide BUN Creatinine Glucose POC Glucose 113 H Lactic Acid Calcium Ionized Calcium Phosphorus Magnesium Iron TIBC Ferritin Total Bilirubin Direct Bilirubin AST ALT Alkaline Phosphatase Total Creatine Kinase CK-MB (CK-2) Troponin T C-Reactive Protein Total Protein Albumin Triglycerides LDL Cholesterol Direct HDL Cholesterol Free T4 PTH Intact Urine WBC (Auto) Urine Creatinine Salicylates Acetaminophen Crossmatch 03/29/19 03/29/19 03/29/19 06:22 06:22 06:22 WBC 23.2 H RBC 2.91 L Hgb 8.6 L Hct 25.8 L RDW Plt Count 91 L Lymph % (Auto) Lymph # Seg Neutrophils % Seg Neuts % (Manual) Lymphocytes % (Manual) Monocytes % (Manual) Nucleated RBC % Seg Neutrophils # Seg Neutrophils # Man Lymphocytes # (Manual) Monocytes # (Manual) PT INR D-Dimer Heparin Anti-Xa Level POC ABG pH ABG pH POC ABG pCO2 POC ABG pO2 ABG pO2 ABG HCO3 ABG O2 Saturation ABG Base Excess ABG Hemoglobin Oxyhemoglobin Sodium 133 L Potassium Chloride 93.8 L Carbon Dioxide 18 L BUN 109 H Creatinine 7.4 H Glucose 124 H POC Glucose Lactic Acid Calcium 4.6 L* Ionized Calcium Phosphorus Magnesium Iron TIBC Ferritin Total Bilirubin Direct Bilirubin AST ALT Alkaline Phosphatase Total Creatine Kinase 3401 H CK-MB (CK-2) Troponin T C-Reactive Protein Total Protein Albumin Triglycerides 309 H LDL Cholesterol Direct HDL Cholesterol Free T4 PTH Intact Urine WBC (Auto) Urine Creatinine Salicylates Acetaminophen Crossmatch 03/29/19 03/29/19 03/29/19 11:48 11:48 18:24 WBC RBC Hgb 7.8 L Hct 23.2 L RDW Plt Count Lymph % (Auto) Lymph # Seg Neutrophils % Seg Neuts % (Manual) Lymphocytes % (Manual) Monocytes % (Manual) Nucleated RBC % Seg Neutrophils # Seg Neutrophils # Man Lymphocytes # (Manual) Monocytes # (Manual) PT 15.3 H INR 1.24 H D-Dimer Heparin Anti-Xa Level POC ABG pH ABG pH POC ABG pCO2 POC ABG pO2 ABG pO2 ABG HCO3 ABG O2 Saturation ABG Base Excess ABG Hemoglobin Oxyhemoglobin Sodium Potassium Chloride Carbon Dioxide BUN Creatinine Glucose POC Glucose 122 H Lactic Acid Calcium Ionized Calcium Phosphorus Magnesium Iron TIBC Ferritin Total Bilirubin Direct Bilirubin AST ALT Alkaline Phosphatase Total Creatine Kinase CK-MB (CK-2) Troponin T C-Reactive Protein Total Protein Albumin Triglycerides LDL Cholesterol Direct HDL Cholesterol Free T4 PTH Intact Urine WBC (Auto) Urine Creatinine Salicylates Acetaminophen Crossmatch 03/30/19 03/30/19 03/30/19 00:40 04:31 05:04 WBC RBC Hgb 7.6 L Hct 23.0 L RDW Plt Count Lymph % (Auto) Lymph # Seg Neutrophils % Seg Neuts % (Manual) Lymphocytes % (Manual) Monocytes % (Manual) Nucleated RBC % Seg Neutrophils # Seg Neutrophils # Man Lymphocytes # (Manual) Monocytes # (Manual) PT INR D-Dimer Heparin Anti-Xa Level POC ABG pH 7.346 L ABG pH POC ABG pCO2 POC ABG pO2 62 L ABG pO2 ABG HCO3 ABG O2 Saturation ABG Base Excess ABG Hemoglobin Oxyhemoglobin Sodium Potassium Chloride Carbon Dioxide BUN 79 H Creatinine 6.4 H Glucose POC Glucose Lactic Acid Calcium 6.1 L D Ionized Calcium Phosphorus Magnesium Iron TIBC Ferritin Total Bilirubin Direct Bilirubin AST ALT Alkaline Phosphatase Total Creatine Kinase CK-MB (CK-2) Troponin T C-Reactive Protein Total Protein Albumin Triglycerides LDL Cholesterol Direct HDL Cholesterol Free T4 PTH Intact Urine WBC (Auto) Urine Creatinine Salicylates Acetaminophen Crossmatch 03/30/19 03/30/19 03/30/19 08:45 12:09 22:43 WBC 14.3 H RBC 2.33 L Hgb 7.0 L 7.4 L Hct 21.0 L 22.3 L RDW 15.6 H Plt Count 135 L Lymph % (Auto) Lymph # Seg Neutrophils % Seg Neuts % (Manual) Lymphocytes % (Manual) Monocytes % (Manual) Nucleated RBC % Seg Neutrophils # Seg Neutrophils # Man Lymphocytes # (Manual) Monocytes # (Manual) PT INR D-Dimer Heparin Anti-Xa Level POC ABG pH ABG pH POC ABG pCO2 POC ABG pO2 ABG pO2 ABG HCO3 ABG O2 Saturation ABG Base Excess ABG Hemoglobin Oxyhemoglobin Sodium Potassium Chloride Carbon Dioxide BUN Creatinine Glucose POC Glucose Lactic Acid Calcium Ionized Calcium 3.7 L Phosphorus Magnesium Iron TIBC Ferritin Total Bilirubin Direct Bilirubin AST ALT Alkaline Phosphatase Total Creatine Kinase CK-MB (CK-2) Troponin T C-Reactive Protein Total Protein Albumin Triglycerides LDL Cholesterol Direct HDL Cholesterol Free T4 PTH Intact Urine WBC (Auto) Urine Creatinine Salicylates Acetaminophen Crossmatch 03/30/19 03/30/1919 23:38 Unknown 04:44 WBC 11.5 H RBC 2.40 L Hgb 7.3 L Hct 21.9 L RDW 15.4 H Plt Count Lymph % (Auto) 10.6 L Lymph # Seg Neutrophils % 81.7 H Seg Neuts % (Manual) Lymphocytes % (Manual) Monocytes % (Manual) Nucleated RBC % Seg Neutrophils # 9.4 H Seg Neutrophils # Man Lymphocytes # (Manual) Monocytes # (Manual) PT INR D-Dimer Heparin Anti-Xa Level POC ABG pH ABG pH POC ABG pCO2 POC ABG pO2 ABG pO2 ABG HCO3 ABG O2 Saturation ABG Base Excess ABG Hemoglobin Oxyhemoglobin Sodium Potassium Chloride Carbon Dioxide BUN Creatinine Glucose POC Glucose 155 H Lactic Acid Calcium Ionized Calcium Phosphorus Magnesium Iron TIBC Ferritin Total Bilirubin Direct Bilirubin 0.4 H AST 63 H ALT Alkaline Phosphatase Total Creatine Kinase CK-MB (CK-2) Troponin T C-Reactive Protein Total Protein 4.9 L Albumin 2.2 L Triglycerides LDL Cholesterol Direct HDL Cholesterol Free T4 PTH Intact Urine WBC (Auto) Urine Creatinine Salicylates Acetaminophen Crossmatch 03/31/19 03/31/19 03/31/19 04:44 05:44 08:20 WBC RBC Hgb Hct RDW Plt Count Lymph % (Auto) Lymph # Seg Neutrophils % Seg Neuts % (Manual) Lymphocytes % (Manual) Monocytes % (Manual) Nucleated RBC % Seg Neutrophils # Seg Neutrophils # Man Lymphocytes # (Manual) Monocytes # (Manual) PT INR D-Dimer Heparin Anti-Xa Level POC ABG pH ABG pH POC ABG pCO2 53.5 H POC ABG pO2 62 L ABG pO2 ABG HCO3 ABG O2 Saturation ABG Base Excess ABG Hemoglobin Oxyhemoglobin Sodium 135 L Potassium Chloride 96.7 L Carbon Dioxide 19 L BUN 94 H Creatinine 7.8 H Glucose POC Glucose Lactic Acid Calcium 5.3 L* Ionized Calcium Phosphorus 8.20 H Magnesium Iron TIBC Ferritin Total Bilirubin Direct Bilirubin 0.4 H AST 60 H ALT Alkaline Phosphatase Total Creatine Kinase CK-MB (CK-2) Troponin T C-Reactive Protein Total Protein 4.8 L Albumin 2.1 L Triglycerides LDL Cholesterol Direct HDL Cholesterol Free T4 PTH Intact Urine WBC (Auto) Urine Creatinine Salicylates Acetaminophen Crossmatch 03/31/19 04/01/19 04/01/19 22:14 04:27 04:27 WBC RBC 2.60 L Hgb 8.0 L Hct 24.1 L RDW 15.7 H Plt Count Lymph % (Auto) 7.9 L Lymph # 0.7 L Seg Neutrophils % 83.6 H Seg Neuts % (Manual) Lymphocytes % (Manual) Monocytes % (Manual) Nucleated RBC % Seg Neutrophils # Seg Neutrophils # Man Lymphocytes # (Manual) Monocytes # (Manual) PT INR D-Dimer Heparin Anti-Xa Level POC ABG pH 7.286 L ABG pH POC ABG pCO2 54.7 H POC ABG pO2 179 H ABG pO2 ABG HCO3 ABG O2 Saturation ABG Base Excess ABG Hemoglobin Oxyhemoglobin Sodium Potassium Chloride Carbon Dioxide BUN 68 H Creatinine 6.6 H Glucose POC Glucose Lactic Acid Calcium 6.5 L D Ionized Calcium Phosphorus 7.30 H Magnesium Iron TIBC Ferritin Total Bilirubin Direct Bilirubin AST ALT Alkaline Phosphatase Total Creatine Kinase 1652 H CK-MB (CK-2) Troponin T C-Reactive Protein Total Protein Albumin Triglycerides LDL Cholesterol Direct HDL Cholesterol Free T4 PTH Intact Urine WBC (Auto) Urine Creatinine Salicylates Acetaminophen Crossmatch 04/01/19 04/01/19 04/01/19 05:14 05:37 18:37 WBC RBC Hgb Hct RDW Plt Count Lymph % (Auto) Lymph # Seg Neutrophils % Seg Neuts % (Manual) Lymphocytes % (Manual) Monocytes % (Manual) Nucleated RBC % Seg Neutrophils # Seg Neutrophils # Man Lymphocytes # (Manual) Monocytes # (Manual) PT INR D-Dimer Heparin Anti-Xa Level POC ABG pH 7.283 L ABG pH POC ABG pCO2 53.4 H POC ABG pO2 241 H ABG pO2 ABG HCO3 ABG O2 Saturation ABG Base Excess ABG Hemoglobin Oxyhemoglobin Sodium Potassium Chloride Carbon Dioxide BUN Creatinine Glucose POC Glucose 111 H 119 H Lactic Acid Calcium Ionized Calcium Phosphorus Magnesium Iron TIBC Ferritin Total Bilirubin Direct Bilirubin AST ALT Alkaline Phosphatase Total Creatine Kinase CK-MB (CK-2) Troponin T C-Reactive Protein Total Protein Albumin Triglycerides LDL Cholesterol Direct HDL Cholesterol Free T4 PTH Intact Urine WBC (Auto) Urine Creatinine Salicylates Acetaminophen Crossmatch 04/01/19 04/02/19 04/02/19 21:28 04:40 05:03 WBC RBC 2.36 L Hgb 7.2 L Hct 21.9 L RDW 16.0 H Plt Count Lymph % (Auto) 10.8 L Lymph # 0.8 L Seg Neutrophils % 80.3 H Seg Neuts % (Manual) Lymphocytes % (Manual) Monocytes % (Manual) Nucleated RBC % Seg Neutrophils # Seg Neutrophils # Man Lymphocytes # (Manual) Monocytes # (Manual) PT INR D-Dimer Heparin Anti-Xa Level POC ABG pH 7.299 L 7.300 L ABG pH POC ABG pCO2 48.2 H 45.2 H POC ABG pO2 133 H 107 H ABG pO2 ABG HCO3 ABG O2 Saturation ABG Base Excess ABG Hemoglobin Oxyhemoglobin Sodium Potassium Chloride Carbon Dioxide BUN Creatinine Glucose POC Glucose Lactic Acid Calcium Ionized Calcium Phosphorus Magnesium Iron TIBC Ferritin Total Bilirubin Direct Bilirubin AST ALT Alkaline Phosphatase Total Creatine Kinase CK-MB (CK-2) Troponin T C-Reactive Protein Total Protein Albumin Triglycerides LDL Cholesterol Direct HDL Cholesterol Free T4 PTH Intact Urine WBC (Auto) Urine Creatinine Salicylates Acetaminophen Crossmatch 04/02/19 04/02/19 04/02/19 05:03 05:03 12:15 WBC RBC Hgb 7.4 L Hct 22.6 L RDW Plt Count Lymph % (Auto) Lymph # Seg Neutrophils % Seg Neuts % (Manual) Lymphocytes % (Manual) Monocytes % (Manual) Nucleated RBC % Seg Neutrophils # Seg Neutrophils # Man Lymphocytes # (Manual) Monocytes # (Manual) PT INR D-Dimer Heparin Anti-Xa Level POC ABG pH ABG pH POC ABG pCO2 POC ABG pO2 ABG pO2 ABG HCO3 ABG O2 Saturation ABG Base Excess ABG Hemoglobin Oxyhemoglobin Sodium 136 L Potassium Chloride 97.8 L Carbon Dioxide 18 L BUN 82 H Creatinine 8.2 H Glucose POC Glucose Lactic Acid Calcium 6.7 L Ionized Calcium Phosphorus 7.50 H Magnesium Iron 26 L TIBC 138 L Ferritin 607.0 H Total Bilirubin Direct Bilirubin AST ALT Alkaline Phosphatase Total Creatine Kinase CK-MB (CK-2) Troponin T C-Reactive Protein Total Protein Albumin Triglycerides LDL Cholesterol Direct HDL Cholesterol Free T4 PTH Intact Urine WBC (Auto) Urine Creatinine Salicylates Acetaminophen Crossmatch 04/02/19 16:34 WBC RBC Hgb Hct RDW Plt Count Lymph % (Auto) Lymph # Seg Neutrophils % Seg Neuts % (Manual) Lymphocytes % (Manual) Monocytes % (Manual) Nucleated RBC % Seg Neutrophils # Seg Neutrophils # Man Lymphocytes # (Manual) Monocytes # (Manual) PT INR D-Dimer Heparin Anti-Xa Level POC ABG pH ABG pH POC ABG pCO2 POC ABG pO2 ABG pO2 ABG HCO3 ABG O2 Saturation ABG Base Excess ABG Hemoglobin Oxyhemoglobin Sodium Potassium Chloride Carbon Dioxide BUN Creatinine Glucose POC Glucose Lactic Acid Calcium Ionized Calcium Phosphorus Magnesium Iron TIBC Ferritin Total Bilirubin Direct Bilirubin AST ALT Alkaline Phosphatase Total Creatine Kinase CK-MB (CK-2) Troponin T C-Reactive Protein Total Protein Albumin Triglycerides LDL Cholesterol Direct HDL Cholesterol Free T4 PTH Intact Urine WBC (Auto) Urine Creatinine Salicylates Acetaminophen Crossmatch See Detail
[2019-04-02] MEDS: EPOETIN ALFA 20,000 UNIT/1 ML INJ SUB-Q PRN (21:18)
[2019-04-02] MEDS ORDERED: PANTOPRAZOLE 40 MG INJ IV SCH (22:00)
[2019-04-02] MEDS: PANTOPRAZOLE 80 MG in SODIUM CHLORIDE 0.9% 100 ML IV SCH (23:08)
[2019-04-02] MEDS: ACETAMINOPHEN 325 MG TAB PO PRN (23:34)
[2019-04-03] MEDS: METOCLOPRAMIDE 10 MG/2 ML INJ IV SCH ×3 (05:17→17:06)
[2019-04-03 05:25] LABS: Basophils % (Auto) 0.3 % (0.0-1.8); Eosinophils # (Auto) 0.1 K/mm3 (0.0-0.4); Eosinophils % (Auto) 2.2 % (0.0-4.3); Hematocrit 21.9 % (35.5-45.6); Hemoglobin 7.3 gm/dl (11.8-15.2); Lymphocytes # (Auto) 0.9 K/mm3 (1.2-5.4); Lymphocytes % (Auto) 15.2 % (13.4-35.0); Mean Corpuscular HGB Conc 34 % (32-34); Mean Corpuscular Volume 91 fl (84-94); Monocytes # (Auto) 0.5 K/mm3 (0.0-0.8); Monocytes % (Auto) 7.7 % (0.0-7.3); Platelet Count 162 K/mm3 (140-440); Red Cell Distribution Width 15.1 % (13.2-15.2)
[2019-04-03] MEDS: fentaNYL DRIP Premix 2,000 MCG/100 ML BAG IV SCH ×2 (05:49→12:25)
[2019-04-03] MEDS: METOPROLOL TARTRATE 25 MG TAB PO SCH (07:20)
[2019-04-03] MEDS: CALCIUM ACETATE 667 MG CAP PO SCH ×3 (07:20→20:10)
--- NOTE | 2019-04-03 08:06 | Hem/Onc Progress Note ---
Assessment and Plan 1. h/o Anemia. The patient has history of bleeding. 2. Internal jugular partial thrombosis. The patient was started on heparin. This has been held due to bleeding 3. Gastrointestinal bleed. 4. h/o Elevated creatinine kinase. 5. h/o Low calcium. 6. h/o Thrombocytopenia. 7. h/o Renal failure. 8. Intubation. 9. Transfusion support. 10. Leukocytosis. At this time, supportive care may help the patient. The patient's platelet had been low at admission. Urine toxicology was negative. awake - on vent dvt - off anticoagulation - due to bleeding platelet better iv iron trial - Patient Problems (1) DVT (deep venous thrombosis) Current Visit: Yes Status: Acute Subjective Date of service: 04/03/19 Principal diagnosis: anemia - IJ dvt Interval history: on vent - awake - moves minimally Objective - Exam Narrative Exam: Pain - intubated General appearance - awake - on vent Performance status complete dependence Eyes - no icterus ENT - intubated LNs cervical not palpable Neck - no LN Respiratory Normal Breath sounds - CTA anteriorly CVS S1 S2 + Extremities edema + General GI Soft Rectal deferred male - deferred Skin warm Musculoskeletal awake - on vent Neurologically awake - Constitutional Vitals: Last Vital Signs Temp 100.1 F H 04/03/19 03:33 Pulse 117 H 04/03/19 07:49 Resp 20 04/03/19 07:49 BP 98/50 04/03/19 07:30 Pulse Ox 98 04/03/19 07:49 - Labs Lab Results: Laboratory Results - last 24 hr 03/21/19 03/28/19 04/01/19 12:00 10:00 13:01 WBC RBC Hgb Hct MCV MCH MCHC RDW Plt Count Lymph % (Auto) [place] % (Auto) Eos % (Auto) Baso % (Auto) Lymph # [place] # Eos # Baso # Seg Neutrophils % Seg Neutrophils # POC ABG pH POC ABG pCO2 POC ABG pO2 POC ABG HCO3 POC ABG Total CO2 POC ABG O2 Sat POC ABG Base Excess FiO2 Sodium Potassium Chloride Carbon Dioxide Anion Gap BUN Creatinine Estimated GFR BUN/Creatinine Ratio Glucose POC Glucose 105 Calcium Phosphorus Iron TIBC Miscellaneous Test Flexitest 1 Blood Type Antibody Screen Crossmatch See Detail 04/02/19 04/02/19 04/02/19 05:03 12:15 12:59 WBC RBC Hgb 7.4 L Hct 22.6 L MCV MCH MCHC RDW Plt Count Lymph % (Auto) [place] % (Auto) Eos % (Auto) Baso % (Auto) Lymph # [place] # Eos # Baso # Seg Neutrophils % Seg Neutrophils # POC ABG pH POC ABG pCO2 POC ABG pO2 POC ABG HCO3 POC ABG Total CO2 POC ABG O2 Sat POC ABG Base Excess FiO2 Sodium 136 L Potassium 4.7 Chloride 97.8 L Carbon Dioxide 18 L Anion Gap 25 BUN 82 H Creatinine 8.2 H Estimated GFR 9 BUN/Creatinine Ratio 10 Glucose 94 POC Glucose 96 Calcium 6.7 L Phosphorus 7.50 H Iron 26 L TIBC 138 L Miscellaneous Test Blood Type Antibody Screen Crossmatch 04/02/19 04/02/19 04/03/19 16:34 17:14 00:32 WBC RBC Hgb Hct MCV MCH MCHC RDW Plt Count Lymph % (Auto) [place] % (Auto) Eos % (Auto) Baso % (Auto) Lymph # [place] # Eos # Baso # Seg Neutrophils % Seg Neutrophils # POC ABG pH POC ABG pCO2 POC ABG pO2 POC ABG HCO3 POC ABG Total CO2 POC ABG O2 Sat POC ABG Base Excess FiO2 Sodium Potassium Chloride Carbon Dioxide Anion Gap BUN Creatinine Estimated GFR BUN/Creatinine Ratio Glucose POC Glucose 108 H 101 Calcium Phosphorus Iron TIBC Miscellaneous Test Blood Type A POSITIVE Antibody Screen Negative Crossmatch See Detail 04/03/19 04/03/19 04/03/19 04:18 04:25 05:33 WBC 5.9 RBC 2.40 L Hgb 7.3 L Hct 21.9 L MCV 91 MCH 31 MCHC 34 RDW 15.1 Plt Count 162 Lymph % (Auto) 15.2 [place] % (Auto) 7.7 H Eos % (Auto) 2.2 Baso % (Auto) 0.3 Lymph # 0.9 L [place] # 0.5 Eos # 0.1 Baso # 0.0 Seg Neutrophils % 74.6 H Seg Neutrophils # 4.4 POC ABG pH 7.383 POC ABG pCO2 43.9 POC ABG pO2 146 H POC ABG HCO3 26.1 POC ABG Total CO2 27 POC ABG O2 Sat 99 POC ABG Base Excess 1 FiO2 40 Sodium Potassium Chloride Carbon Dioxide Anion Gap BUN Creatinine Estimated GFR BUN/Creatinine Ratio Glucose POC Glucose 85 Calcium Phosphorus Iron TIBC Miscellaneous Test Blood Type Antibody Screen Crossmatch Medications & Allergies - Medications Allergies/Adverse Reactions: Allergies No Known Allergies Allergy (Unverified 03/16/19 17:17) Home Medications: Home Medications Medication Instructions Recorded Confirmed Last Taken Type Unobtainable 03/18/19 03/18/19 Unknown History Active Medications: Generic Name Dose Route Start Last Admin Trade Name Freq PRN Reason Stop Dose Admin Acetaminophen 650 mg 04/02/19 23:26 04/02/19 23:34 Tylenol PO 650 mg Q4H PRN Administration Pain, Mild (1-3),temp>100.5 Albuterol 2.5 mg 03/29/19 13:08 Proventil IH Q4HRT PRN Shortness Of Breath Lipase/Protease/Amylase 1 each 03/17/19 14:[address] 10,500 Unit FEEDTUBE PRN PRN For Clogged Feeding Tube Calcium Acetate 1,334 mg 03/31/19 14:00 04/03/19 07:20 Phoslo PO Not Given TID PAOLO Dextrose 50 gm 03/19/19 18:39 03/26/19 23:26 D50w (25gm) Vial IV 50 gm PRN PRN Administration Hypoglycemia Epoetin Jet 20,000 unit 03/31/19 10:15 04/02/19 21:18 Procrit SUB-Q 20,000 unit NEYMAR PRN Administration hemodialysis Fentanyl 50 mcg 03/26/19 12:00 04/01/19 09:47 Sublimaze IV 50 mcg Q1H PRN Administration Pain, Moderate (4-6) Hydrophilic Ointment 1 applic 03/16/19 15:50 Vaseline Lip Therapy TP Q2HR PRN Dry Lips Phenylephrine HCl 100 mg/ 100 mls @ 3 mls/hr 03/17/19 02:30 03/19/19 18:48 Sodium Chloride IV Infused TITR PAOLO Titration Protocol 50 MCG/MIN Fentanyl Citrate 2,000 mcg in 100 mls @ 7.85 mls/hr 03/26/19 12:00 04/03/19 05:49 Fentanyl Drip Premix IV 2 mcg/kg/hr TITR PAOLO 15.7 mls/hr Administration Protocol 1 MCG/KG/HR Cefepime HCl 2 gm in 100 mls @ 200 mls/hr 03/27/19 14:00 04/02/19 16:02 Maxipime/Ns 2 Gm/100 Ml IV 200 mls/hr Q24H PAOLO Administration Protocol Norepinephrine 4 mg in 250 mls @ 7.5 mls/hr 03/27/19 22:16 04/03/19 05:56 Levophed Drip 4 Mg/Ns 250 Ml IV 4 mcg/min TITR PAOLO 15 mls/hr Titration Protocol 2 MCG/MIN Vasopressin 20 unit/ Sodium 101 mls @ 9.09 mls/hr 03/28/19 09:00 04/03/19 00:00 Chloride IV 0 units/min TITR PAOLO 0 mls/hr Titration Protocol 0.03 UNITS/MIN Amiodarone HCl 900 mg/ 500 mls @ 33.333 mls/hr 03/30/19 13:00 04/02/19 18:01 Dextrose IV 1 mg/min DIRECT PAOLO 33.333 mls/hr Administration Protocol 1 MG/MIN Sodium Chloride 100 mls @ 999 mls/hr 04/02/19 11:19 Nacl 0.9% IV NEYMAR PRN Hypotension Pantoprazole Sodium 80 mg/ 100 mls @ 10 mls/hr 04/02/19 13:00 04/02/19 23:08 Sodium Chloride IV 8 mg/hr DIRECT PAOLO 10 mls/hr Administration 8 MG/HR Lorazepam 2 mg 03/26/19 11:54 04/02/19 05:42 Ativan IV 2 mg Q1H PRN Administration Agitation Metoclopramide HCl 5 mg 04/02/19 18:00 04/03/19 05:17 Reglan IV 5 mg Q6HR PAOLO Administration Metoprolol Tartrate 25 mg 03/28/19 14:00 04/03/19 07:20 Lopressor PO Not Given TID PAOLO Multi-Ingred Cream/Lotion/Oil/Oint 1 applic 03/16/19 15:50 03/19/19 20:10 Artificial Tears Ophth Oint OU 1 applic Q4HR PRN Administration Dry Eye(s) Ondansetron HCl 4 mg 03/16/19 22:21 Zofran IV Q8H PRN Nausea And Vomiting Paricalcitol 2 mcg 03/30/19 10:00 04/02/19 11:14 Zemplar IV 2 mcg DAILY PAOLO Administration Simple Syrup 15 ml 03/17/19 14:45 03/26/19 23:19 Simple Syrup FEEDTUBE 15 ml PRN PRN Administration Hypoglycemia Simple Syrup 30 ml 03/17/19 14:45 Simple Syrup FEEDTUBE PRN PRN Hypoglycemia Sodium Bicarbonate 325 mg 03/17/19 14:45 Sodium Bicarbonate FEEDTUBE PRN PRN For Clogged Feeding Tube
[2019-04-03] MEDS: NORepinephrine/NS 4 MG-250 ML 4 MG/250 ML BAG IV SCH (08:49)
[2019-04-03 09:28] LABS: Calcium 7.5 mg/dL (8.4-10.2)
[2019-04-03] MEDS: AMIODARONE 900 MG in DEXTROSE 5% IN WATER 482 ML IV SCH ×2 (09:52→23:18)
--- NOTE | 2019-04-03 10:37 | Gastroenterology Progress Note ---
Assessment and Plan GI bleed - EGD on 03/30 with gastric ulcer with bleeding stigmata s/p epi and gold probe. large melena episode yesterday. FMS currently with dark brown appearing stool. H/H stable. cont IV PPI drip today. transfuse 1 unit and monitor. pt currently DNR. Will reserve endoscopy for active bleeding but would need code status reversed for procedure. conservative management from gi stand point at this time. Subjective Date of service: 04/03/19 Principal diagnosis: Metabolic Encephalopathy, GI bleed Interval history: called back due to large melena stool yesterday afternoon; pt intubated/sedated. now DNR. FMS in place with dark brown stool. H/H stable. Objective - Exam Narrative Exam: Gen: obese, intubated/sedated CV: RRR Lungs: coarse bs bilaterally Abd: soft, nd, hypoactive bs FMS: Dark brown stool - Constitutional Vitals: Temp Pulse Resp BP Pulse Ox 100.0 F H 149 H 20 103/53 99 04/03/19 08:00 04/03/19 08:15 04/03/19 08:15 04/03/19 08:15 04/03/19 08:15 - Labs CBC & Chem 7: 04/03/19 04:25 04/03/19 08:30 Labs: Laboratory Results - last 24 hr 03/21/19 03/28/19 04/01/19 12:00 10:00 13:01 WBC RBC Hgb Hct MCV MCH MCHC RDW Plt Count Lymph % (Auto) [place] % (Auto) Eos % (Auto) Baso % (Auto) Lymph # [place] # Eos # Baso # Seg Neutrophils % Seg Neutrophils # POC ABG pH POC ABG pCO2 POC ABG pO2 POC ABG HCO3 POC ABG Total CO2 POC ABG O2 Sat POC ABG Base Excess FiO2 Sodium Potassium Chloride Carbon Dioxide Anion Gap BUN Creatinine Estimated GFR BUN/Creatinine Ratio Glucose POC Glucose 105 Calcium Phosphorus Iron TIBC Miscellaneous Test Flexitest 1 Blood Type Antibody Screen Crossmatch See Detail 04/02/19 04/02/19 04/02/19 05:03 12:15 12:59 WBC RBC Hgb 7.4 L Hct 22.6 L MCV MCH MCHC RDW Plt Count Lymph % (Auto) [place] % (Auto) Eos % (Auto) Baso % (Auto) Lymph # [place] # Eos # Baso # Seg Neutrophils % Seg Neutrophils # POC ABG pH POC ABG pCO2 POC ABG pO2 POC ABG HCO3 POC ABG Total CO2 POC ABG O2 Sat POC ABG Base Excess FiO2 Sodium 136 L Potassium 4.7 Chloride 97.8 L Carbon Dioxide 18 L Anion Gap 25 BUN 82 H Creatinine 8.2 H Estimated GFR 9 BUN/Creatinine Ratio 10 Glucose 94 POC Glucose 96 Calcium 6.7 L Phosphorus 7.50 H Iron 26 L TIBC 138 L Miscellaneous Test Blood Type Antibody Screen Crossmatch 04/02/19 04/02/19 04/03/19 16:34 17:14 00:32 WBC RBC Hgb Hct MCV MCH MCHC RDW Plt Count Lymph % (Auto) [place] % (Auto) Eos % (Auto) Baso % (Auto) Lymph # [place] # Eos # Baso # Seg Neutrophils % Seg Neutrophils # POC ABG pH POC ABG pCO2 POC ABG pO2 POC ABG HCO3 POC ABG Total CO2 POC ABG O2 Sat POC ABG Base Excess FiO2 Sodium Potassium Chloride Carbon Dioxide Anion Gap BUN Creatinine Estimated GFR BUN/Creatinine Ratio Glucose POC Glucose 108 H 101 Calcium Phosphorus Iron TIBC Miscellaneous Test Blood Type A POSITIVE Antibody Screen Negative Crossmatch See Detail 04/03/19 04/03/19 04/03/19 04:18 04:25 05:33 WBC 5.9 RBC 2.40 L Hgb 7.3 L Hct 21.9 L MCV 91 MCH 31 MCHC 34 RDW 15.1 Plt Count 162 Lymph % (Auto) 15.2 [place] % (Auto) 7.7 H Eos % (Auto) 2.2 Baso % (Auto) 0.3 Lymph # 0.9 L [place] # 0.5 Eos # 0.1 Baso # 0.0 Seg Neutrophils % 74.6 H Seg Neutrophils # 4.4 POC ABG pH 7.383 POC ABG pCO2 43.9 POC ABG pO2 146 H POC ABG HCO3 26.1 POC ABG Total CO2 27 POC ABG O2 Sat 99 POC ABG Base Excess 1 FiO2 40 Sodium Potassium Chloride Carbon Dioxide Anion Gap BUN Creatinine Estimated GFR BUN/Creatinine Ratio Glucose POC Glucose 85 Calcium Phosphorus Iron TIBC Miscellaneous Test Blood Type Antibody Screen Crossmatch 04/03/19 08:30 WBC RBC Hgb Hct MCV MCH MCHC RDW Plt Count Lymph % (Auto) [place] % (Auto) Eos % (Auto) Baso % (Auto) Lymph # [place] # Eos # Baso # Seg Neutrophils % Seg Neutrophils # POC ABG pH POC ABG pCO2 POC ABG pO2 POC ABG HCO3 POC ABG Total CO2 POC ABG O2 Sat POC ABG Base Excess FiO2 Sodium 136 L Potassium 4.2 Chloride 97.0 L Carbon Dioxide 23 Anion Gap 20 BUN 58 H Creatinine 7.3 H Estimated GFR 10 BUN/Creatinine Ratio 8 Glucose 93 POC Glucose Calcium 7.5 L Phosphorus 5.80 H D Iron TIBC Miscellaneous Test Blood Type Antibody Screen Crossmatch
[2019-04-03] MEDS: PANTOPRAZOLE 80 MG in SODIUM CHLORIDE 0.9% 100 ML IV SCH ×2 (10:54→23:18)
[2019-04-03] MEDS ORDERED: SODIUM CHLORIDE 0.9% 500 ML 500 ML IV NR ×2 (11:00→15:40)
--- NOTE | 2019-04-03 11:10 | Progress Note ---
Assessment and Plan Cont present cardiac management. He remains strict NPO status and thus will continue IV amio. No systemic AC regarding AFib in setting of anemia, thrombocytopenia, GI bleed. Continue supportive measures. Can consider ischemic evaluation if/when medically stabilized. Overall guarded prognosis. The patient has been seen in conjunction with Dr. Taylor who agrees with the assessment and plan of care. - Patient Problems (1) Cardiopulmonary arrest Current Visit: Yes Status: Acute (2) Acute respiratory failure Current Visit: Yes Status: Acute (3) Paroxysmal atrial fibrillation with RVR Current Visit: Yes Status: Acute (4) SVT (supraventricular tachycardia) Current Visit: Yes Status: Resolved (5) Torsades de pointes Current Visit: Yes Status: Acute (6) Ventricular tachycardia Current Visit: Yes Status: Acute (7) Encephalopathy Current Visit: Yes Status: Acute (8) Septic shock Current Visit: Yes Status: Acute (9) Aspiration pneumonia Current Visit: Yes Status: Acute (10) Meningitis Current Visit: Yes Status: Suspected (11) Cellulitis Current Visit: Yes Status: Acute (12) Acute renal failure Current Visit: Yes Status: Acute (13) GI bleed Current Visit: Yes Status: Acute (14) Anemia Current Visit: Yes Status: Acute (15) Thrombocytopenia Current Visit: Yes Status: Acute (16) DVT (deep venous thrombosis) Current Visit: Yes Status: Acute Subjective Date of service: 04/03/19 Principal diagnosis: Metabolic Encephalopathy, GI bleed Interval history: pt remains intubated, moving arms and legs, with some purposeful responses noted per neurology. in SR. no family at bedside. Objective Last Vital Signs Temp 100.0 F H 04/03/19 08:00 Pulse 149 H 04/03/19 08:15 Resp 20 04/03/19 08:15 BP 103/53 04/03/19 08:15 Pulse Ox 99 04/03/19 08:15 - Physical Examination General: Other (intubated, sedated) HEENT: Positive: PERRL Neck: Positive: neck supple Cardiac: Positive: Reg Rate and Rhythm, S1/S2 Lungs: Positive: Decreased Breath Sounds Neuro: Positive: Other (intubated) Abdomen: Positive: Unremarkable /Rectal: Other (deferred) Skin: Positive: Clear Musculoskeletal: Decreased Range of Motion Extremities: Present: lower extr. pulses (weak, thready ) - Labs and Meds CBC 04/02/19 04/03/19 Range/Units 12:15 04:25 WBC 5.9 (4.5-11.0) K/mm3 RBC 2.40 L (3.65-5.03) M/mm3 Hgb 7.4 L 7.3 L (11.8-15.2) gm/dl Hct 22.6 L 21.9 L (35.5-45.6) % Plt Count 162 (140-440) K/mm3 Lymph # 0.9 L (1.2-5.4) K/mm3 [place] # 0.5 (0.0-0.8) K/mm3 Eos # 0.1 (0.0-0.4) K/mm3 Baso # 0.0 (0.0-0.1) K/mm3 Comprehensive Metabolic Panel 04/03/19 Range/Units 08:30 Sodium 136 L (137-145) mmol/L Potassium 4.2 (3.6-5.0) mmol/L Chloride 97.0 L (98-107) mmol/L Carbon Dioxide 23 (22-30) mmol/L BUN 58 H (9-20) mg/dL Creatinine 7.3 H (0.8-1.5) mg/dL Glucose 93 (75-100) mg/dL Calcium 7.5 L (8.4-10.2) mg/dL - Imaging and Cardiology Echo: report reviewed ( EF 40-45%, impaired relaxation. ) - Allied health notes Allied health notes reviewed: nursing
--- NOTE | 2019-04-03 11:30 | Progress Note ---
Assessment and Plan 1. Acute kidney injury: Vasomotor RUBEN in the setting of shock / volume depletion / Rhabdo. Baseline renal function is unknown. CT abdomen was negative for obstructive nephropathy. Monitor renal function. Renal prognosis is guarded. Avoid nephrotoxic agents. Meds dosage based on GFR. Patient was started on hemodialysis on 03/18/19 due to worsening metabolic acidosis and hyperkalemia. Hemodialysis: 03/18, 03/19, 03/20, 03/22, 03/23, 03/24, 03/26, 03/28, 03/29, 03/31, 04/02. 2. FEN: Hyperkalemia, improved. Hyponatremia, improved. Metabolic acidosis, on maintenance HD. Volume overload, UF with HD as tolerated. Hypocalcemia, likely multifactorial. On Phoslo and Zemplar. Monitor lytes. 3. Septic shock: Followed by ID. Currently on Levophed. 4. Rhabdomyolysis: CK level improving. 5. SVT / V.tach: Followed by Cards. 6. Respiratory failure: On vent. 7. Severe anemia: S/p PRBC. On Epogen. 8. Elevated transaminases. 9. Encephalopathy. Examination: General appearance: well-developed, appears stated age, obese, intubated, on vent HEENT: Atraumatic EYES: Pupils reacting to light Neck: supple Respiratory: coarse breath sounds Cardiology: regular, S1S2 heard, no murmur Gastrointestinal: no tenderness, obese, BS heard Integumentary: no rash noted Neurologic: opens eyes Ext: 1+ edema of all 4 extremities Hemodialysis access: R IJ temp catheter Subjective Date of service: 04/03/19 Principal diagnosis: Metabolic Encephalopathy, GI bleed Interval history: Patient was seen and examined at the bedside. Remain on the vent. Objective - Vital Signs Vital signs: Vital Signs - 12hr 04/02/19 04/02/19 04/02/19 23:31 23:42 23:43 Temperature 100.7 F H Pulse Rate 147 H 133 H Pulse Rate [ From Monitor] Respiratory 18 Rate Blood Pressure 154/40 154/40 O2 Sat by Pulse 99 99 Oximetry 04/02/19 04/03/19 04/03/19 23:45 00:00 00:15 Temperature Pulse Rate 97 H 91 H 91 H Pulse Rate [ 95 H From Monitor] Respiratory 19 15 21 Rate Blood Pressure 145/73 149/63 136/59 O2 Sat by Pulse 100 100 100 Oximetry 04/03/19 04/03/19 04/03/19 00:30 00:45 01:00 Temperature Pulse Rate 91 H 91 H 89 Pulse Rate [ From Monitor] Respiratory 17 10 L 24 Rate Blood Pressure 137/58 135/58 128/57 O2 Sat by Pulse 100 100 100 Oximetry 04/03/19 04/03/19 04/03/19 01:15 01:30 01:45 Temperature Pulse Rate 92 H 89 86 Pulse Rate [ From Monitor] Respiratory 21 20 20 Rate Blood Pressure 139/59 124/53 133/53 O2 Sat by Pulse 100 100 100 Oximetry 04/03/19 04/03/19 04/03/19 02:00 02:15 02:30 Temperature Pulse Rate 87 92 H 85 Pulse Rate [ From Monitor] Respiratory 19 20 20 Rate Blood Pressure 130/55 130/54 129/52 O2 Sat by Pulse 100 100 100 Oximetry 04/03/19 04/03/19 04/03/19 02:45 03:00 03:15 Temperature Pulse Rate 89 85 85 Pulse Rate [ From Monitor] Respiratory 22 20 20 Rate Blood Pressure 135/55 124/49 125/49 O2 Sat by Pulse 100 100 100 Oximetry 04/03/19 04/03/19 04/03/19 03:30 03:33 03:45 Temperature 100.1 F H Pulse Rate 83 83 Pulse Rate [ From Monitor] Respiratory 20 20 Rate Blood Pressure 119/46 122/48 O2 Sat by Pulse 100 100 Oximetry 04/03/19 04/03/19 04/03/19 04:00 04:01 04:08 Temperature Pulse Rate 144 H 132 H 130 H Pulse Rate [ 144 H From Monitor] Respiratory 20 16 Rate Blood Pressure 114/49 114/49 O2 Sat by Pulse 99 100 100 Oximetry 04/03/19 04/03/19 04/03/19 04:16 04:30 04:46 Temperature Pulse Rate 114 H 117 H 138 H Pulse Rate [ From Monitor] Respiratory 20 19 21 Rate Blood Pressure 114/49 116/43 108/38 O2 Sat by Pulse 100 98 98 Oximetry 04/03/19 04/03/19 04/03/19 05:00 05:15 05:30 Temperature Pulse Rate 131 H 133 H 125 H Pulse Rate [ From Monitor] Respiratory 18 19 21 Rate Blood Pressure 108/38 111/48 103/43 O2 Sat by Pulse 99 100 99 Oximetry 04/03/19 04/03/19 04/03/19 05:45 06:00 06:16 Temperature Pulse Rate 113 H 124 H 131 H Pulse Rate [ From Monitor] Respiratory 20 20 20 Rate Blood Pressure 105/48 107/50 95/47 O2 Sat by Pulse 99 99 99 Oximetry 04/03/19 04/03/19 04/03/19 06:30 06:46 07:00 Temperature Pulse Rate 120 H 126 H 136 H Pulse Rate [ From Monitor] Respiratory 20 20 20 Rate Blood Pressure 118/45 118/45 106/47 O2 Sat by Pulse 99 99 99 Oximetry 04/03/19 04/03/19 04/03/19 07:15 07:20 07:30 Temperature Pulse Rate 116 H 126 H 114 H Pulse Rate [ From Monitor] Respiratory 20 20 Rate Blood Pressure 110/44 106/47 98/50 O2 Sat by Pulse 99 100 Oximetry 04/03/19 04/03/19 04/03/19 07:39 07:45 07:49 Temperature Pulse Rate 128 H 120 H Pulse Rate [ 117 H From Monitor] Respiratory 20 20 Rate Blood Pressure 108/45 O2 Sat by Pulse 99 98 Oximetry 04/03/19 04/03/19 04/03/19 08:00 08:15 08:30 Temperature 100.0 F H Pulse Rate 128 H 149 H 142 H Pulse Rate [ From Monitor] Respiratory 20 20 20 Rate Blood Pressure 95/46 103/53 103/53 O2 Sat by Pulse 99 99 98 Oximetry 04/03/19 04/03/19 04/03/19 08:46 09:00 09:15 Temperature Pulse Rate 143 H 84 84 Pulse Rate [ From Monitor] Respiratory 20 20 20 Rate Blood Pressure 124/63 126/52 122/52 O2 Sat by Pulse 100 99 100 Oximetry 04/03/19 04/03/19 04/03/19 09:30 09:45 10:00 Temperature Pulse Rate 88 86 84 Pulse Rate [ From Monitor] Respiratory 20 20 20 Rate Blood Pressure 123/55 122/53 125/52 O2 Sat by Pulse 99 100 100 Oximetry 04/03/19 04/03/19 04/03/19 10:15 10:30 10:46 Temperature Pulse Rate 83 83 130 H Pulse Rate [ From Monitor] Respiratory 20 20 20 Rate Blood Pressure 122/50 115/45 114/46 O2 Sat by Pulse 100 100 99 Oximetry 04/03/19 04/03/19 11:00 11:16 Temperature Pulse Rate 130 H 121 H Pulse Rate [ From Monitor] Respiratory 20 21 Rate Blood Pressure 99/54 113/47 O2 Sat by Pulse 99 100 Oximetry - Lab 04/03/19 04:25 04/03/19 08:30 Most recent lab results ABG pH 7.326 pH Units (7.350-7.450) L 03/26/19 04:30 ABG pCO2 36.4 mm Hg 03/26/19 04:30 ABG pO2 137.4 mm Hg (80.0-90.0) H 03/26/19 04:30 ABG HCO3 18.6 mmol/L (20.0-26.0) L 03/26/19 04:30 ABG O2 Saturation 98.6 % (95.0-99.0) 03/26/19 04:30 Calcium 7.5 mg/dL (8.4-10.2) L 04/03/19 08:30 Phosphorus 5.80 mg/dL (2.5-4.5) H D 04/03/19 08:30 Magnesium 1.90 mg/dL (1.7-2.3) 03/31/19 15:07 Urine Creatinine 106.6 mg/dL (0.1-20.0) H 03/17/19 16:05 Urine Sodium 95 mmol/L 03/17/19 16:05 Medications & Allergies - Medications Allergies/Adverse Reactions: Allergies No Known Allergies Allergy (Unverified 03/16/19 17:17) Home Medications: Home Medications Medication Instructions Recorded Confirmed Last Taken Type Unobtainable 03/18/19 03/18/19 Unknown History Active Medications: Generic Name Dose Route Start Last Admin Trade Name Freq PRN Reason Stop Dose Admin Acetaminophen 650 mg 04/02/19 23:26 04/02/19 23:34 Tylenol PO 650 mg Q4H PRN Administration Pain, Mild (1-3),temp>100.5 Albuterol 2.5 mg 03/29/19 13:08 Proventil IH Q4HRT PRN Shortness Of Breath Lipase/Protease/Amylase 1 each 03/17/19 14:[address] 10,500 Unit FEEDTUBE PRN PRN For Clogged Feeding Tube Calcium Acetate 1,334 mg 03/31/19 14:00 04/03/19 07:20 Phoslo PO Not Given TID PAOLO Dextrose 50 gm 03/19/19 18:39 03/26/19 23:26 D50w (25gm) Vial IV 50 gm PRN PRN Administration Hypoglycemia Epoetin Jet 20,000 unit 03/31/19 10:15 04/02/19 21:18 Procrit SUB-Q 20,000 unit NEYMAR PRN Administration hemodialysis Fentanyl 50 mcg 03/26/19 12:00 04/01/19 09:47 Sublimaze IV 50 mcg Q1H PRN Administration Pain, Moderate (4-6) Hydrophilic Ointment 1 applic 03/16/19 15:50 Vaseline Lip Therapy TP Q2HR PRN Dry Lips Phenylephrine HCl 100 mg/ 100 mls @ 3 mls/hr 03/17/19 02:30 03/19/19 18:48 Sodium Chloride IV Infused TITR PAOLO Titration Protocol 50 MCG/MIN Fentanyl Citrate 2,000 mcg in 100 mls @ 7.85 mls/hr 03/26/19 12:00 04/03/19 05:49 Fentanyl Drip Premix IV 2 mcg/kg/hr TITR PAOLO 15.7 mls/hr Administration Protocol 1 MCG/KG/HR Cefepime HCl 2 gm in 100 mls @ 200 mls/hr 03/27/19 14:00 04/02/19 16:02 Maxipime/Ns 2 Gm/100 Ml IV 200 mls/hr Q24H PAOLO Administration Protocol Norepinephrine 4 mg in 250 mls @ 7.5 mls/hr 03/27/19 22:16 04/03/19 08:49 Levophed Drip 4 Mg/Ns 250 Ml IV 4 mcg/min TITR PAOLO 15 mls/hr Administration Protocol 2 MCG/MIN Vasopressin 20 unit/ Sodium 101 mls @ 9.09 mls/hr 03/28/19 09:00 04/03/19 00:00 Chloride IV 0 units/min TITR PAOLO 0 mls/hr Titration Protocol 0.03 UNITS/MIN Amiodarone HCl 900 mg/ 500 mls @ 33.333 mls/hr 03/30/19 13:00 04/03/19 09:52 Dextrose IV 1 mg/min DIRECT PAOLO 33.333 mls/hr Administration Protocol 1 MG/MIN Sodium Chloride 100 mls @ 999 mls/hr 04/02/19 11:19 Nacl 0.9% IV NEYMAR PRN Hypotension Pantoprazole Sodium 80 mg/ 100 mls @ 10 mls/hr 04/02/19 13:00 04/03/19 10:54 Sodium Chloride IV 8 mg/hr DIRECT PAOLO 10 mls/hr Administration 8 MG/HR Sodium Chloride 500 mls @ 0 mls/hr 04/03/19 11:00 Nacl 0.9% 500 Ml IV 04/03/19 12:00 ONCE NR As Directed Lorazepam 2 mg 03/26/19 11:54 04/02/19 05:42 Ativan IV 2 mg Q1H PRN Administration Agitation Metoclopramide HCl 5 mg 04/02/19 18:00 04/03/19 05:17 Reglan IV 5 mg Q6HR PAOLO Administration Metoprolol Tartrate 25 mg 03/28/19 14:00 04/03/19 07:20 Lopressor PO Not Given TID PAOLO Multi-Ingred Cream/Lotion/Oil/Oint 1 applic 03/16/19 15:50 03/19/19 20:10 Artificial Tears Ophth Oint OU 1 applic Q4HR PRN Administration Dry Eye(s) Ondansetron HCl 4 mg 03/16/19 22:21 Zofran IV Q8H PRN Nausea And Vomiting Paricalcitol 2 mcg 03/30/19 10:00 04/02/19 11:14 Zemplar IV 2 mcg DAILY PAOLO Administration Simple Syrup 15 ml 03/17/19 14:45 03/26/19 23:19 Simple Syrup FEEDTUBE 15 ml PRN PRN Administration Hypoglycemia Simple Syrup 30 ml 03/17/19 14:45 Simple Syrup FEEDTUBE PRN PRN Hypoglycemia Sodium Bicarbonate 325 mg 03/17/19 14:45 Sodium Bicarbonate FEEDTUBE PRN PRN For Clogged Feeding Tube
--- NOTE | 2019-04-03 11:45 | Progress Note ---
Assessment and Plan Severe sepsis with shock. Right axilla abscess versus localized pannus/fatty collection. Acute hypoxemic respiratory failure, on mechanical ventilator support. Likely aspiration pneumonia, bilateral. Morbid obesity. Rhabdomyolysis. Acute kidney injury. Leukocytosis. Morbid obesity. Metabolic acidosis. Lactic acidosis. Hypomagnesemia. Elevated serum transaminases/possible shock liver. Acute encephalopathy, toxic metabolic versus anoxic (Had a long discussion with his brother Joshua and they have decided to make him a DNR) - reduce set rate to 12/min - repeat ABG at 9 pm tonight - begin tube feeds at 10 mls/hr - discontinued metoprolol - to receive 2 units PRBC transfusion re: inappropriate rise post PRBC transfusion yesterday - continue low dose Reglan - continue prn albuterol treatments - prn tylenol suppositories for fevers - keep on PRVC/AC for now - continue to wean FiO2 for sats > 90% - continue to wean Levophed for target MAP > 65 mmHg - continue amiodarone drip for A-fib - continue HD/UF per nephrology prescription (3 Liters pulled yesterday) - VAP bundle addressed - continue daily SAT's and SBT assessment as tolerated - target sedation for RASS 0 to -1 - prn analgesia per CPOT score - continue HD/UF per nephrology prescription and for toxin and volume control - prn supportive blood transfusions to keep serum Hb > 7.0 - Monitor hemodynamics closely - Transfuse PRBC's to keep HgB > 7g/dL - continue empiric broad spectrum antiinfective's per ID recommendations (de- escalate based on clinical and microbiologic data) - continue mobility protocols and off loading as tolerated for pressure ulcer prophylaxis - continue to avoid nephrotoxins, adjust all medications for GFR and CRCL - continue GI & VTE prophylaxis with - accuchecks with glycemic control per SSI for target BG of 140-180 mg/dl acutely - continue other care per attending / other consultants ... re-evaluate in am & prn CONDITION: CRITICAL PROGNOSIS: VERY GUARDED CODE STATUS: DNR Discussed extensively with RT/RN and care team in ICU IDT rounds The high probability of a clinically significant, sudden or life threatening deterioration of the [respiratory, renal and Cardiac] system's' required my full and direct attention, intervention and personal management. The aggregate critical care time was 35 minutes. This time is in addition to time spent performing reported procedures but includes the following: [x] Data Review and interpretation [x] Patient assessment and monitoring of vital signs [x] Documentation [x] Medication orders and management Subjective Date of service: 04/03/19 Principal diagnosis: Septic Shock; Ac. hypoxemic resp failure; Renzo. PNA; Rhabdomyolysis; RUBEN Interval history: Patient is seen today for: Severe sepsis with shock; Acute hypoxemic respiratory failure; Aspiration pneumonia; Morbid obesity; Rhabdomyolysis; Acute kidney injury; Morbid obesity; Elevated serum transaminases/possible shock liver; Acute encephalopathy (Toxic/Met) Seen and examined at bedside; 24hour events reviewed; nursing and respiratory care staff consulted; no adverse overnight events reported to me; resting peacefully in bed; remains on MVS; + mild delirium; no gross bleeding; no N/ V/F/C; remains on levophed drip Objective Vital Signs - 12hr 04/03/19 04/03/19 04/03/19 00:00 00:15 00:30 Temperature Pulse Rate 91 H 91 H 91 H Pulse Rate [ 95 H From Monitor] Respiratory 15 21 17 Rate Blood Pressure 149/63 136/59 137/58 O2 Sat by Pulse 100 100 100 Oximetry 04/03/19 04/03/19 04/03/19 00:45 01:00 01:15 Temperature Pulse Rate 91 H 89 92 H Pulse Rate [ From Monitor] Respiratory 10 L 24 21 Rate Blood Pressure 135/58 128/57 139/59 O2 Sat by Pulse 100 100 100 Oximetry 04/03/19 04/03/19 04/03/19 01:30 01:45 02:00 Temperature Pulse Rate 89 86 87 Pulse Rate [ From Monitor] Respiratory 20 20 19 Rate Blood Pressure 124/53 133/53 130/55 O2 Sat by Pulse 100 100 100 Oximetry 04/03/19 04/03/19 04/03/19 02:15 02:30 02:45 Temperature Pulse Rate 92 H 85 89 Pulse Rate [ From Monitor] Respiratory 20 20 22 Rate Blood Pressure 130/54 129/52 135/55 O2 Sat by Pulse 100 100 100 Oximetry 04/03/19 04/03/19 04/03/19 03:00 03:15 03:30 Temperature Pulse Rate 85 85 83 Pulse Rate [ From Monitor] Respiratory 20 20 20 Rate Blood Pressure 124/49 125/49 119/46 O2 Sat by Pulse 100 100 100 Oximetry 04/03/19 04/03/19 04/03/19 03:33 03:45 04:00 Temperature 100.1 F H Pulse Rate 83 144 H Pulse Rate [ 144 H From Monitor] Respiratory 20 20 Rate Blood Pressure 122/48 O2 Sat by Pulse 100 99 Oximetry 04/03/19 04/03/19 04/03/19 04:01 04:08 04:16 Temperature Pulse Rate 132 H 130 H 114 H Pulse Rate [ From Monitor] Respiratory 16 20 Rate Blood Pressure 114/49 114/49 114/49 O2 Sat by Pulse 100 100 100 Oximetry 04/03/19 04/03/19 04/03/19 04:30 04:46 05:00 Temperature Pulse Rate 117 H 138 H 131 H Pulse Rate [ From Monitor] Respiratory 19 21 18 Rate Blood Pressure 116/43 108/38 108/38 O2 Sat by Pulse 98 98 99 Oximetry 04/03/19 04/03/19 04/03/19 05:15 05:30 05:45 Temperature Pulse Rate 133 H 125 H 113 H Pulse Rate [ From Monitor] Respiratory 19 21 20 Rate Blood Pressure 111/48 103/43 105/48 O2 Sat by Pulse 100 99 99 Oximetry 04/03/19 04/03/19 04/03/19 06:00 06:16 06:30 Temperature Pulse Rate 124 H 131 H 120 H Pulse Rate [ From Monitor] Respiratory 20 20 20 Rate Blood Pressure 107/50 95/47 118/45 O2 Sat by Pulse 99 99 99 Oximetry 04/03/19 04/03/19 04/03/19 06:46 07:00 07:15 Temperature Pulse Rate 126 H 136 H 116 H Pulse Rate [ From Monitor] Respiratory 20 20 20 Rate Blood Pressure 118/45 106/47 110/44 O2 Sat by Pulse 99 99 99 Oximetry 04/03/19 04/03/19 04/03/19 07:20 07:30 07:39 Temperature Pulse Rate 126 H 114 H 128 H Pulse Rate [ From Monitor] Respiratory 20 Rate Blood Pressure 106/47 98/50 O2 Sat by Pulse 100 Oximetry 04/03/19 04/03/19 04/03/19 07:45 07:49 08:00 Temperature 100.0 F H Pulse Rate 120 H 128 H Pulse Rate [ 117 H From Monitor] Respiratory 20 20 20 Rate Blood Pressure 108/45 95/46 O2 Sat by Pulse 99 98 99 Oximetry 04/03/19 04/03/19 04/03/19 08:15 08:30 08:46 Temperature Pulse Rate 149 H 142 H 143 H Pulse Rate [ From Monitor] Respiratory 20 20 20 Rate Blood Pressure 103/53 103/53 124/63 O2 Sat by Pulse 99 98 100 Oximetry 04/03/19 04/03/19 04/03/19 09:00 09:15 09:30 Temperature Pulse Rate 84 84 88 Pulse Rate [ From Monitor] Respiratory 20 20 20 Rate Blood Pressure 126/52 122/52 123/55 O2 Sat by Pulse 99 100 99 Oximetry 04/03/19 04/03/19 04/03/19 09:45 10:00 10:15 Temperature Pulse Rate 86 84 83 Pulse Rate [ From Monitor] Respiratory 20 20 20 Rate Blood Pressure 122/53 125/52 122/50 O2 Sat by Pulse 100 100 100 Oximetry 04/03/19 04/03/19 04/03/19 10:30 10:46 11:00 Temperature Pulse Rate 83 130 H 130 H Pulse Rate [ From Monitor] Respiratory 20 20 20 Rate Blood Pressure 115/45 114/46 99/54 O2 Sat by Pulse 100 99 99 Oximetry 04/03/19 11:16 Temperature Pulse Rate 121 H Pulse Rate [ From Monitor] Respiratory 21 Rate Blood Pressure 113/47 O2 Sat by Pulse 100 Oximetry Constitutional: no acute distress, other (middle aged morbidly obese CM, normocephalic with incresed respiratory effort on MVS) Eyes: icteric ENT: oropharynx moist, other (ETT 23-24 cm PEDRO, ulcers over his upper lip) Neck: supple, no lymphadenopathy, no JVD, other (large neck circumference) Effort: mildly labored Ascultation: Bilateral: diminished breath sounds, rales Percussion: Bilateral: not dull Cardiovascular: regular rate and rhythm, other ( S1,S2) Gastrointestinal: hypoactive bowel sounds, soft, non-tender, non-distended, other (obese) Integumentary: normal, other (blisters with some weeping over the extremities) Extremities: no cyanosis, pink and warm, pulses normal, no ischemia or petechiae Neurologic: normal mental status, non-focal exam (grossly), pupils equal and round, CN II-XII normal, other (obeys simple commands when SAT was done) Psychiatric: mood appropriate, affect normal CBC and BMP: 04/04/19 04:47 04/04/19 04:47 ABG, PT/INR, D-dimer: ABG POC ABG pH 7.383 (7.35-7.45) 04/03/19 04:18 ABG pH 7.326 pH Units (7.350-7.450) L 03/26/19 04:30 POC ABG pCO2 43.9 (35-45) 04/03/19 04:18 ABG pCO2 36.4 mm Hg 03/26/19 04:30 POC ABG pO2 146 (80-105) H 04/03/19 04:18 ABG pO2 137.4 mm Hg (80.0-90.0) H 03/26/19 04:30 POC ABG HCO3 26.1 (22-26 mml/L) 04/03/19 04:18 POC ABG Total CO2 27 (23-27mmol/L) 04/03/19 04:18 POC ABG O2 Sat 99 04/03/19 04:18 ABG O2 Saturation 98.6 % (95.0-99.0) 03/26/19 04:30 PT/INR, D-dimer PT 15.3 Sec. (12.2-14.9) H 03/29/19 11:48 INR 1.24 (0.87-1.13) H 03/29/19 11:48 D-Dimer 4845.98 ng/mlDDU (0-234) H 03/28/19 12:00 Abnormal lab findings: Abnormal Labs 03/16/19 03/16/19 03/16/19 15:32 16:03 16:05 WBC 27.0 H RBC 5.55 H Hgb 15.7 H Hct 47.1 H RDW Plt Count 75 L Lymph % (Auto) [place] % (Auto) Lymph # Seg Neutrophils % Seg Neuts % (Manual) 85.0 H Lymphocytes % (Manual) 2.0 L Monocytes % (Manual) Nucleated RBC % Seg Neutrophils # Seg Neutrophils # Man 23.0 H Lymphocytes # (Manual) 0.5 L Monocytes # (Manual) PT INR D-Dimer Heparin Anti-Xa Level POC ABG pH ABG pH POC ABG pCO2 POC ABG pO2 ABG pO2 ABG HCO3 ABG O2 Saturation ABG Base Excess ABG Hemoglobin Oxyhemoglobin Sodium 127 L Potassium Chloride 87.8 L Carbon Dioxide 17 L BUN 49 H Creatinine 5.8 H Glucose 150 H POC Glucose 118 H Lactic Acid Calcium 6.6 L Ionized Calcium Phosphorus Magnesium 1.10 L Iron TIBC Ferritin Total Bilirubin Direct Bilirubin AST ALT Alkaline Phosphatase Total Creatine Kinase 02196 H CK-MB (CK-2) Troponin T C-Reactive Protein Total Protein Albumin Triglycerides LDL Cholesterol Direct HDL Cholesterol Free T4 PTH Intact Urine WBC (Auto) Urine Creatinine Salicylates Acetaminophen Crossmatch 03/16/19 03/16/19 03/16/19 16:59 17:05 17:05 WBC RBC Hgb Hct RDW Plt Count Lymph % (Auto) [place] % (Auto) Lymph # Seg Neutrophils % Seg Neuts % (Manual) Lymphocytes % (Manual) Monocytes % (Manual) Nucleated RBC % Seg Neutrophils # Seg Neutrophils # Man Lymphocytes # (Manual) Monocytes # (Manual) PT INR D-Dimer Heparin Anti-Xa Level POC ABG pH 7.297 L ABG pH POC ABG pCO2 33.0 L POC ABG pO2 ABG pO2 ABG HCO3 ABG O2 Saturation ABG Base Excess ABG Hemoglobin Oxyhemoglobin Sodium Potassium Chloride Carbon Dioxide BUN Creatinine Glucose POC Glucose Lactic Acid Calcium Ionized Calcium Phosphorus Magnesium Iron TIBC Ferritin Total Bilirubin Direct Bilirubin AST ALT Alkaline Phosphatase Total Creatine Kinase 34833 H CK-MB (CK-2) 83.1 H Troponin T C-Reactive Protein Total Protein Albumin Triglycerides LDL Cholesterol Direct HDL Cholesterol Free T4 0.72 L PTH Intact Urine WBC (Auto) Urine Creatinine Salicylates Acetaminophen Crossmatch 03/16/19 03/16/19 03/16/19 17:05 17:05 17:05 WBC RBC Hgb Hct RDW Plt Count Lymph % (Auto) [place] % (Auto) Lymph # Seg Neutrophils % Seg Neuts % (Manual) Lymphocytes % (Manual) Monocytes % (Manual) Nucleated RBC % Seg Neutrophils # Seg Neutrophils # Man Lymphocytes # (Manual) Monocytes # (Manual) PT INR D-Dimer Heparin Anti-Xa Level POC ABG pH ABG pH POC ABG pCO2 POC ABG pO2 ABG pO2 ABG HCO3 ABG O2 Saturation ABG Base Excess ABG Hemoglobin Oxyhemoglobin Sodium Potassium Chloride Carbon Dioxide BUN Creatinine Glucose POC Glucose Lactic Acid 5.10 H* Calcium Ionized Calcium Phosphorus Magnesium Iron TIBC Ferritin Total Bilirubin Direct Bilirubin AST ALT Alkaline Phosphatase Total Creatine Kinase CK-MB (CK-2) Troponin T C-Reactive Protein Total Protein Albumin Triglycerides LDL Cholesterol Direct HDL Cholesterol Free T4 PTH Intact Urine WBC (Auto) Urine Creatinine Salicylates < 0.3 L Acetaminophen < 5.0 L Crossmatch 03/16/19 03/16/19 03/16/19 17:05 17:05 20:35 WBC RBC Hgb Hct RDW Plt Count Lymph % (Auto) [place] % (Auto) Lymph # Seg Neutrophils % Seg Neuts % (Manual) Lymphocytes % (Manual) Monocytes % (Manual) Nucleated RBC % Seg Neutrophils # Seg Neutrophils # Man Lymphocytes # (Manual) Monocytes # (Manual) PT 15.9 H INR 1.30 H D-Dimer Heparin Anti-Xa Level POC ABG pH ABG pH POC ABG pCO2 POC ABG pO2 ABG pO2 ABG HCO3 ABG O2 Saturation ABG Base Excess ABG Hemoglobin Oxyhemoglobin Sodium Potassium Chloride Carbon Dioxide BUN Creatinine Glucose POC Glucose Lactic Acid 3.30 H* Calcium Ionized Calcium Phosphorus Magnesium Iron TIBC Ferritin Total Bilirubin 6.20 H Direct Bilirubin 5.9 H AST 800 H ALT 120 H Alkaline Phosphatase Total Creatine Kinase CK-MB (CK-2) Troponin T C-Reactive Protein Total Protein 4.4 L Albumin 2.4 L Triglycerides LDL Cholesterol Direct HDL Cholesterol Free T4 PTH Intact Urine WBC (Auto) Urine Creatinine Salicylates Acetaminophen Crossmatch 03/16/19 03/16/19 03/16/19 21:45 22:32 Unknown WBC RBC Hgb Hct RDW Plt Count Lymph % (Auto) [place] % (Auto) Lymph # Seg Neutrophils % Seg Neuts % (Manual) Lymphocytes % (Manual) Monocytes % (Manual) Nucleated RBC % Seg Neutrophils # Seg Neutrophils # Man Lymphocytes # (Manual) Monocytes # (Manual) PT INR D-Dimer Heparin Anti-Xa Level POC ABG pH ABG pH POC ABG pCO2 POC ABG pO2 ABG pO2 ABG HCO3 ABG O2 Saturation ABG Base Excess ABG Hemoglobin Oxyhemoglobin Sodium Potassium Chloride Carbon Dioxide BUN Creatinine Glucose POC Glucose Lactic Acid 3.30 H* 3.00 H* Calcium Ionized Calcium Phosphorus Magnesium Iron TIBC Ferritin Total Bilirubin Direct Bilirubin AST ALT Alkaline Phosphatase Total Creatine Kinase CK-MB (CK-2) Troponin T 0.047 H D C-Reactive Protein Total Protein Albumin Triglycerides 395 H LDL Cholesterol Direct 10 L HDL Cholesterol 7 L Free T4 PTH Intact Urine WBC (Auto) Urine Creatinine Salicylates Acetaminophen Crossmatch 03/17/19 03/17/19 03/17/19 03:45 03:45 03:45 WBC RBC Hgb Hct RDW Plt Count Lymph % (Auto) [place] % (Auto) Lymph # Seg Neutrophils % Seg Neuts % (Manual) Lymphocytes % (Manual) Monocytes % (Manual) Nucleated RBC % Seg Neutrophils # Seg Neutrophils # Man Lymphocytes # (Manual) Monocytes # (Manual) PT INR D-Dimer Heparin Anti-Xa Level POC ABG pH ABG pH POC ABG pCO2 POC ABG pO2 ABG pO2 ABG HCO3 ABG O2 Saturation ABG Base Excess ABG Hemoglobin Oxyhemoglobin Sodium 131 L Potassium Chloride 88.9 L Carbon Dioxide BUN 53 H Creatinine 7.1 H Glucose POC Glucose Lactic Acid 4.10 H* Calcium 5.4 L* D Ionized Calcium Phosphorus 7.30 H Magnesium 1.60 L Iron TIBC Ferritin Total Bilirubin 5.90 H Direct Bilirubin AST 801 H ALT 109 H Alkaline Phosphatase Total Creatine Kinase 59565 H 70183 H CK-MB (CK-2) 41.5 H Troponin T 0.054 H C-Reactive Protein Total Protein 4.5 L Albumin 2.0 L Triglycerides LDL Cholesterol Direct HDL Cholesterol Free T4 PTH Intact Urine WBC (Auto) Urine Creatinine Salicylates Acetaminophen Crossmatch 03/17/19 03/17/19 03/17/19 05:47 07:16 07:16 WBC RBC Hgb Hct RDW Plt Count Lymph % (Auto) [place] % (Auto) Lymph # Seg Neutrophils % Seg Neuts % (Manual) Lymphocytes % (Manual) Monocytes % (Manual) Nucleated RBC % Seg Neutrophils # Seg Neutrophils # Man Lymphocytes # (Manual) Monocytes # (Manual) PT INR D-Dimer Heparin Anti-Xa Level POC ABG pH 7.193 L ABG pH POC ABG pCO2 45.2 H POC ABG pO2 65 L ABG pO2 ABG HCO3 ABG O2 Saturation ABG Base Excess ABG Hemoglobin Oxyhemoglobin Sodium Potassium Chloride Carbon Dioxide BUN Creatinine Glucose POC Glucose Lactic Acid 5.50 H* Calcium Ionized Calcium Phosphorus Magnesium Iron TIBC Ferritin Total Bilirubin Direct Bilirubin AST ALT Alkaline Phosphatase Total Creatine Kinase 10537 H CK-MB (CK-2) 54.3 H Troponin T 0.058 H C-Reactive Protein Total Protein Albumin Triglycerides LDL Cholesterol Direct HDL Cholesterol Free T4 PTH Intact Urine WBC (Auto) Urine Creatinine Salicylates Acetaminophen Crossmatch 03/17/19 03/17/19 03/17/19 11:52 12:51 13:01 WBC RBC Hgb Hct RDW Plt Count Lymph % (Auto) [place] % (Auto) Lymph # Seg Neutrophils % Seg Neuts % (Manual) Lymphocytes % (Manual) Monocytes % (Manual) Nucleated RBC % Seg Neutrophils # Seg Neutrophils # Man Lymphocytes # (Manual) Monocytes # (Manual) PT INR D-Dimer Heparin Anti-Xa Level POC ABG pH 7.154 L ABG pH POC ABG pCO2 34.3 L POC ABG pO2 73 L ABG pO2 ABG HCO3 ABG O2 Saturation ABG Base Excess ABG Hemoglobin Oxyhemoglobin Sodium Potassium Chloride Carbon Dioxide BUN Creatinine Glucose POC Glucose 60 L Lactic Acid 8.20 H* Calcium Ionized Calcium Phosphorus Magnesium Iron TIBC Ferritin Total Bilirubin Direct Bilirubin AST ALT Alkaline Phosphatase Total Creatine Kinase CK-MB (CK-2) Troponin T C-Reactive Protein Total Protein Albumin Triglycerides LDL Cholesterol Direct HDL Cholesterol Free T4 PTH Intact Urine WBC (Auto) Urine Creatinine Salicylates Acetaminophen Crossmatch 03/17/19 03/17/19 03/17/19 14:37 14:37 14:37 WBC 29.3 H RBC Hgb Hct RDW 15.8 H Plt Count 45 L Lymph % (Auto) [place] % (Auto) Lymph # Seg Neutrophils % Seg Neuts % (Manual) 81.0 H Lymphocytes % (Manual) 1.0 L Monocytes % (Manual) 15.0 H Nucleated RBC % Seg Neutrophils # Seg Neutrophils # Man 23.7 H Lymphocytes # (Manual) 0.3 L Monocytes # (Manual) 4.4 H PT INR D-Dimer Heparin Anti-Xa Level POC ABG pH ABG pH POC ABG pCO2 POC ABG pO2 ABG pO2 ABG HCO3 ABG O2 Saturation ABG Base Excess ABG Hemoglobin Oxyhemoglobin Sodium Potassium Chloride Carbon Dioxide BUN Creatinine Glucose POC Glucose Lactic Acid 4.90 H* Calcium Ionized Calcium Phosphorus Magnesium Iron TIBC Ferritin Total Bilirubin Direct Bilirubin AST ALT Alkaline Phosphatase Total Creatine Kinase CK-MB (CK-2) Troponin T C-Reactive Protein 24.90 H Total Protein Albumin Triglycerides LDL Cholesterol Direct HDL Cholesterol Free T4 PTH Intact Urine WBC (Auto) Urine Creatinine Salicylates Acetaminophen Crossmatch 03/17/19 03/17/19 03/17/19 16:05 16:05 17:02 WBC RBC Hgb Hct RDW Plt Count Lymph % (Auto) [place] % (Auto) Lymph # Seg Neutrophils % Seg Neuts % (Manual) Lymphocytes % (Manual) Monocytes % (Manual) Nucleated RBC % Seg Neutrophils # Seg Neutrophils # Man Lymphocytes # (Manual) Monocytes # (Manual) PT INR D-Dimer Heparin Anti-Xa Level POC ABG pH 7.183 L ABG pH POC ABG pCO2 POC ABG pO2 65 L ABG pO2 ABG HCO3 ABG O2 Saturation ABG Base Excess ABG Hemoglobin Oxyhemoglobin Sodium Potassium Chloride Carbon Dioxide BUN Creatinine Glucose POC Glucose Lactic Acid Calcium Ionized Calcium Phosphorus Magnesium Iron TIBC Ferritin Total Bilirubin Direct Bilirubin AST ALT Alkaline Phosphatase Total Creatine Kinase CK-MB (CK-2) Troponin T C-Reactive Protein Total Protein Albumin Triglycerides LDL Cholesterol Direct HDL Cholesterol Free T4 PTH Intact Urine WBC (Auto) 30.0 H Urine Creatinine 106.6 H Salicylates Acetaminophen Crossmatch 03/18/19 03/18/19 03/18/19 05:12 05:16 05:53 WBC RBC Hgb Hct RDW Plt Count Lymph % (Auto) [place] % (Auto) Lymph # Seg Neutrophils % Seg Neuts % (Manual) Lymphocytes % (Manual) Monocytes % (Manual) Nucleated RBC % Seg Neutrophils # Seg Neutrophils # Man Lymphocytes # (Manual) Monocytes # (Manual) PT INR D-Dimer Heparin Anti-Xa Level POC ABG pH 7.257 L ABG pH POC ABG pCO2 31.6 L POC ABG pO2 69 L ABG pO2 ABG HCO3 ABG O2 Saturation ABG Base Excess ABG Hemoglobin Oxyhemoglobin Sodium Potassium Chloride Carbon Dioxide BUN Creatinine Glucose POC Glucose 141 H Lactic Acid 5.00 H* Calcium Ionized Calcium Phosphorus Magnesium Iron TIBC Ferritin Total Bilirubin Direct Bilirubin AST ALT Alkaline Phosphatase Total Creatine Kinase CK-MB (CK-2) Troponin T C-Reactive Protein Total Protein Albumin Triglycerides LDL Cholesterol Direct HDL Cholesterol Free T4 PTH Intact Urine WBC (Auto) Urine Creatinine Salicylates Acetaminophen Crossmatch 03/18/19 03/18/19 03/18/19 06:57 08:40 08:40 WBC 31.7 H RBC Hgb Hct RDW 15.5 H Plt Count 35 L Lymph % (Auto) [place] % (Auto) Lymph # Seg Neutrophils % Seg Neuts % (Manual) Lymphocytes % (Manual) Monocytes % (Manual) Nucleated RBC % Seg Neutrophils # Seg Neutrophils # Man Lymphocytes # (Manual) Monocytes # (Manual) PT INR D-Dimer Heparin Anti-Xa Level POC ABG pH ABG pH POC ABG pCO2 POC ABG pO2 ABG pO2 ABG HCO3 ABG O2 Saturation ABG Base Excess ABG Hemoglobin Oxyhemoglobin Sodium 132 L Potassium 5.5 H D Chloride 88.5 L Carbon Dioxide 18 L BUN 71 H Creatinine 8.1 H Glucose 205 H POC Glucose Lactic Acid 5.00 H* Calcium 4.1 L* D Ionized Calcium Phosphorus Magnesium 2.40 H Iron TIBC Ferritin Total Bilirubin 7.50 H Direct Bilirubin AST 1088 H ALT 159 H Alkaline Phosphatase 190 H Total Creatine Kinase 795911 H CK-MB (CK-2) Troponin T C-Reactive Protein Total Protein 4.7 L Albumin 1.8 L Triglycerides LDL Cholesterol Direct HDL Cholesterol Free T4 PTH Intact Urine WBC (Auto) Urine Creatinine Salicylates Acetaminophen Crossmatch 03/18/19 03/18/19 03/18/19 12:33 12:50 13:19 WBC RBC Hgb Hct RDW Plt Count Lymph % (Auto) [place] % (Auto) Lymph # Seg Neutrophils % Seg Neuts % (Manual) Lymphocytes % (Manual) Monocytes % (Manual) Nucleated RBC % Seg Neutrophils # Seg Neutrophils # Man Lymphocytes # (Manual) Monocytes # (Manual) PT INR D-Dimer Heparin Anti-Xa Level POC ABG pH 7.282 L ABG pH POC ABG pCO2 POC ABG pO2 67 L ABG pO2 ABG HCO3 ABG O2 Saturation ABG Base Excess ABG Hemoglobin Oxyhemoglobin Sodium Potassium Chloride Carbon Dioxide BUN Creatinine Glucose POC Glucose 129 H Lactic Acid 3.30 H* Calcium Ionized Calcium Phosphorus Magnesium Iron TIBC Ferritin Total Bilirubin Direct Bilirubin AST ALT Alkaline Phosphatase Total Creatine Kinase CK-MB (CK-2) Troponin T C-Reactive Protein Total Protein Albumin Triglycerides LDL Cholesterol Direct HDL Cholesterol Free T4 PTH Intact Urine WBC (Auto) Urine Creatinine Salicylates Acetaminophen Crossmatch 03/18/19 03/18/19 03/18/19 13:19 16:50 18:11 WBC RBC Hgb Hct RDW Plt Count Lymph % (Auto) [place] % (Auto) Lymph # Seg Neutrophils % Seg Neuts % (Manual) Lymphocytes % (Manual) Monocytes % (Manual) Nucleated RBC % Seg Neutrophils # Seg Neutrophils # Man Lymphocytes # (Manual) Monocytes # (Manual) PT INR D-Dimer Heparin Anti-Xa Level POC ABG pH ABG pH POC ABG pCO2 POC ABG pO2 59 L ABG pO2 ABG HCO3 ABG O2 Saturation ABG Base Excess ABG Hemoglobin Oxyhemoglobin Sodium Potassium Chloride Carbon Dioxide BUN Creatinine Glucose POC Glucose 151 H Lactic Acid Calcium 4.2 L* Ionized Calcium Phosphorus Magnesium Iron TIBC Ferritin Total Bilirubin Direct Bilirubin AST ALT Alkaline Phosphatase Total Creatine Kinase 709503 H CK-MB (CK-2) Troponin T C-Reactive Protein Total Protein Albumin Triglycerides LDL Cholesterol Direct HDL Cholesterol Free T4 PTH Intact Urine WBC (Auto) Urine Creatinine Salicylates Acetaminophen Crossmatch 03/18/19 03/18/19 03/19/19 18:20 23:39 01:42 WBC RBC Hgb Hct RDW Plt Count Lymph % (Auto) [place] % (Auto) Lymph # Seg Neutrophils % Seg Neuts % (Manual) Lymphocytes % (Manual) Monocytes % (Manual) Nucleated RBC % Seg Neutrophils # Seg Neutrophils # Man Lymphocytes # (Manual) Monocytes # (Manual) PT INR D-Dimer Heparin Anti-Xa Level POC ABG pH 7.345 L ABG pH 7.285 L POC ABG pCO2 POC ABG pO2 59 L ABG pO2 44.0 L ABG HCO3 ABG O2 Saturation 70.9 L ABG Base Excess -5.7 L ABG Hemoglobin 11.9 L Oxyhemoglobin 69.6 L Sodium Potassium Chloride Carbon Dioxide BUN Creatinine Glucose POC Glucose 152 H Lactic Acid Calcium Ionized Calcium Phosphorus Magnesium Iron TIBC Ferritin Total Bilirubin Direct Bilirubin AST ALT Alkaline Phosphatase Total Creatine Kinase CK-MB (CK-2) Troponin T C-Reactive Protein Total Protein Albumin Triglycerides LDL Cholesterol Direct HDL Cholesterol Free T4 PTH Intact Urine WBC (Auto) Urine Creatinine Salicylates Acetaminophen Crossmatch 03/19/19 03/19/19 03/19/19 04:00 04:00 05:35 WBC 36.5 H RBC Hgb Hct RDW 15.8 H Plt Count 35 L Lymph % (Auto) [place] % (Auto) Lymph # Seg Neutrophils % Seg Neuts % (Manual) Lymphocytes % (Manual) Monocytes % (Manual) Nucleated RBC % Seg Neutrophils # Seg Neutrophils # Man Lymphocytes # (Manual) Monocytes # (Manual) PT INR D-Dimer Heparin Anti-Xa Level POC ABG pH ABG pH 7.265 L POC ABG pCO2 POC ABG pO2 ABG pO2 35.4 L* ABG HCO3 ABG O2 Saturation 54.4 L ABG Base Excess -6.7 L ABG Hemoglobin 12.9 L Oxyhemoglobin 53.4 L Sodium 132 L Potassium 5.7 H Chloride 89.8 L Carbon Dioxide 19 L BUN 62 H Creatinine 6.4 H Glucose 151 H POC Glucose Lactic Acid Calcium 5.2 L* D Ionized Calcium Phosphorus Magnesium Iron TIBC Ferritin Total Bilirubin 7.80 H Direct Bilirubin AST 682 H ALT 130 H Alkaline Phosphatase 167 H Total Creatine Kinase CK-MB (CK-2) Troponin T C-Reactive Protein Total Protein 4.8 L Albumin 2.3 L Triglycerides LDL Cholesterol Direct HDL Cholesterol Free T4 PTH Intact Urine WBC (Auto) Urine Creatinine Salicylates Acetaminophen Crossmatch 03/19/19 03/19/19 03/19/19 05:49 09:16 09:50 WBC RBC Hgb Hct RDW Plt Count Lymph % (Auto) [place] % (Auto) Lymph # Seg Neutrophils % Seg Neuts % (Manual) Lymphocytes % (Manual) Monocytes % (Manual) Nucleated RBC % Seg Neutrophils # Seg Neutrophils # Man Lymphocytes # (Manual) Monocytes # (Manual) PT INR D-Dimer Heparin Anti-Xa Level POC ABG pH 7.222 L ABG pH POC ABG pCO2 56.6 H POC ABG pO2 ABG pO2 ABG HCO3 ABG O2 Saturation ABG Base Excess ABG Hemoglobin Oxyhemoglobin Sodium Potassium Chloride Carbon Dioxide BUN Creatinine Glucose POC Glucose 154 H Lactic Acid 2.70 H* Calcium Ionized Calcium Phosphorus Magnesium Iron TIBC Ferritin Total Bilirubin Direct Bilirubin AST ALT Alkaline Phosphatase Total Creatine Kinase CK-MB (CK-2) Troponin T C-Reactive Protein Total Protein Albumin Triglycerides LDL Cholesterol Direct HDL Cholesterol Free T4 PTH Intact Urine WBC (Auto) Urine Creatinine Salicylates Acetaminophen Crossmatch 03/19/19 03/19/19 03/19/19 09:50 11:28 17:58 WBC RBC Hgb Hct RDW Plt Count Lymph % (Auto) [place] % (Auto) Lymph # Seg Neutrophils % Seg Neuts % (Manual) Lymphocytes % (Manual) Monocytes % (Manual) Nucleated RBC % Seg Neutrophils # Seg Neutrophils # Man Lymphocytes # (Manual) Monocytes # (Manual) PT INR D-Dimer Heparin Anti-Xa Level POC ABG pH 7.250 L ABG pH POC ABG pCO2 52.6 H POC ABG pO2 ABG pO2 ABG HCO3 ABG O2 Saturation ABG Base Excess ABG Hemoglobin Oxyhemoglobin Sodium Potassium Chloride Carbon Dioxide BUN Creatinine Glucose POC Glucose 160 H Lactic Acid Calcium Ionized Calcium Phosphorus Magnesium Iron TIBC Ferritin Total Bilirubin Direct Bilirubin AST ALT Alkaline Phosphatase Total Creatine Kinase 59140 H CK-MB (CK-2) Troponin T C-Reactive Protein Total Protein Albumin Triglycerides LDL Cholesterol Direct HDL Cholesterol Free T4 PTH Intact Urine WBC (Auto) Urine Creatinine Salicylates Acetaminophen Crossmatch 03/19/19 03/19/19 03/20/19 19:48 21:03 02:16 WBC RBC Hgb Hct RDW Plt Count Lymph % (Auto) [place] % (Auto) Lymph # Seg Neutrophils % Seg Neuts % (Manual) Lymphocytes % (Manual) Monocytes % (Manual) Nucleated RBC % Seg Neutrophils # Seg Neutrophils # Man Lymphocytes # (Manual) Monocytes # (Manual) PT INR D-Dimer Heparin Anti-Xa Level POC ABG pH 7.279 L ABG pH POC ABG pCO2 50.3 H POC ABG pO2 129 H ABG pO2 ABG HCO3 ABG O2 Saturation ABG Base Excess ABG Hemoglobin Oxyhemoglobin Sodium Potassium Chloride Carbon Dioxide BUN Creatinine Glucose POC Glucose 119 H 119 H Lactic Acid Calcium Ionized Calcium Phosphorus Magnesium Iron TIBC Ferritin Total Bilirubin Direct Bilirubin AST ALT Alkaline Phosphatase Total Creatine Kinase CK-MB (CK-2) Troponin T C-Reactive Protein Total Protein Albumin Triglycerides LDL Cholesterol Direct HDL Cholesterol Free T4 PTH Intact Urine WBC (Auto) Urine Creatinine Salicylates Acetaminophen Crossmatch 03/20/19 03/20/19 03/20/19 04:23 05:05 09:30 WBC 36.3 H RBC Hgb Hct RDW 15.5 H Plt Count 29 L Lymph % (Auto) [place] % (Auto) Lymph # Seg Neutrophils % Seg Neuts % (Manual) Lymphocytes % (Manual) Monocytes % (Manual) Nucleated RBC % Seg Neutrophils # Seg Neutrophils # Man Lymphocytes # (Manual) Monocytes # (Manual) PT INR D-Dimer Heparin Anti-Xa Level POC ABG pH ABG pH POC ABG pCO2 POC ABG pO2 280 H ABG pO2 ABG HCO3 ABG O2 Saturation ABG Base Excess ABG Hemoglobin Oxyhemoglobin Sodium Potassium Chloride Carbon Dioxide BUN Creatinine Glucose POC Glucose 115 H Lactic Acid Calcium Ionized Calcium Phosphorus Magnesium Iron TIBC Ferritin Total Bilirubin Direct Bilirubin AST ALT Alkaline Phosphatase Total Creatine Kinase CK-MB (CK-2) Troponin T C-Reactive Protein Total Protein Albumin Triglycerides LDL Cholesterol Direct HDL Cholesterol Free T4 PTH Intact Urine WBC (Auto) Urine Creatinine Salicylates Acetaminophen Crossmatch 03/20/19 03/20/19 03/20/19 09:30 09:30 11:34 WBC RBC Hgb Hct RDW Plt Count Lymph % (Auto) [place] % (Auto) Lymph # Seg Neutrophils % Seg Neuts % (Manual) Lymphocytes % (Manual) Monocytes % (Manual) Nucleated RBC % Seg Neutrophils # Seg Neutrophils # Man Lymphocytes # (Manual) Monocytes # (Manual) PT INR D-Dimer Heparin Anti-Xa Level POC ABG pH ABG pH POC ABG pCO2 POC ABG pO2 ABG pO2 ABG HCO3 ABG O2 Saturation ABG Base Excess ABG Hemoglobin Oxyhemoglobin Sodium 131 L Potassium Chloride 92.3 L Carbon Dioxide 20 L BUN 68 H Creatinine 6.1 H Glucose 164 H POC Glucose 141 H Lactic Acid Calcium 5.3 L* Ionized Calcium Phosphorus Magnesium Iron TIBC Ferritin Total Bilirubin 9.50 H Direct Bilirubin AST 381 H ALT 116 H Alkaline Phosphatase 255 H Total Creatine Kinase 84042 H CK-MB (CK-2) Troponin T C-Reactive Protein Total Protein 5.1 L Albumin 2.3 L Triglycerides LDL Cholesterol Direct HDL Cholesterol Free T4 PTH Intact Urine WBC (Auto) Urine Creatinine Salicylates Acetaminophen Crossmatch 03/20/19 03/20/19 03/20/19 14:41 14:45 18:50 WBC RBC Hgb Hct RDW Plt Count Lymph % (Auto) [place] % (Auto) Lymph # Seg Neutrophils % Seg Neuts % (Manual) Lymphocytes % (Manual) Monocytes % (Manual) Nucleated RBC % Seg Neutrophils # Seg Neutrophils # Man Lymphocytes # (Manual) Monocytes # (Manual) PT INR D-Dimer Heparin Anti-Xa Level POC ABG pH ABG pH POC ABG pCO2 POC ABG pO2 ABG pO2 ABG HCO3 ABG O2 Saturation ABG Base Excess ABG Hemoglobin Oxyhemoglobin Sodium Potassium Chloride Carbon Dioxide BUN Creatinine Glucose POC Glucose 117 H Lactic Acid 2.90 H* Calcium Ionized Calcium Phosphorus Magnesium Iron TIBC Ferritin Total Bilirubin Direct Bilirubin AST ALT Alkaline Phosphatase Total Creatine Kinase CK-MB (CK-2) Troponin T C-Reactive Protein 13.30 H Total Protein Albumin Triglycerides LDL Cholesterol Direct HDL Cholesterol Free T4 PTH Intact Urine WBC (Auto) Urine Creatinine Salicylates Acetaminophen Crossmatch 03/20/19 03/21/19 03/21/19 21:55 04:26 04:26 WBC 37.8 H RBC Hgb Hct RDW 15.4 H Plt Count 36 L Lymph % (Auto) [place] % (Auto) Lymph # Seg Neutrophils % Seg Neuts % (Manual) 93.0 H Lymphocytes % (Manual) 3.0 L Monocytes % (Manual) Nucleated RBC % 1.0 H Seg Neutrophils # 34.6 H Seg Neutrophils # Man 35.2 H Lymphocytes # (Manual) 1.1 L Monocytes # (Manual) PT INR D-Dimer Heparin Anti-Xa Level POC ABG pH ABG pH POC ABG pCO2 POC ABG pO2 ABG pO2 ABG HCO3 ABG O2 Saturation ABG Base Excess ABG Hemoglobin Oxyhemoglobin Sodium 131 L Potassium Chloride 90.7 L Carbon Dioxide 21 L BUN 69 H Creatinine 5.7 H Glucose 170 H POC Glucose 128 H Lactic Acid Calcium 6.1 L D Ionized Calcium Phosphorus Magnesium Iron TIBC Ferritin Total Bilirubin 9.50 H Direct Bilirubin AST 308 H ALT 124 H Alkaline Phosphatase 327 H Total Creatine Kinase 31271 H CK-MB (CK-2) Troponin T C-Reactive Protein Total Protein 5.7 L Albumin 2.6 L Triglycerides LDL Cholesterol Direct HDL Cholesterol Free T4 PTH Intact Urine WBC (Auto) Urine Creatinine Salicylates Acetaminophen Crossmatch 03/21/19 03/21/19 03/21/19 05:17 05:39 08:29 WBC RBC Hgb Hct RDW Plt Count Lymph % (Auto) [place] % (Auto) Lymph # Seg Neutrophils % Seg Neuts % (Manual) Lymphocytes % (Manual) Monocytes % (Manual) Nucleated RBC % Seg Neutrophils # Seg Neutrophils # Man Lymphocytes # (Manual) Monocytes # (Manual) PT INR D-Dimer Heparin Anti-Xa Level POC ABG pH ABG pH POC ABG pCO2 POC ABG pO2 209 H ABG pO2 ABG HCO3 ABG O2 Saturation ABG Base Excess ABG Hemoglobin Oxyhemoglobin Sodium Potassium Chloride Carbon Dioxide BUN Creatinine Glucose POC Glucose 145 H Lactic Acid Calcium Ionized Calcium Phosphorus Magnesium Iron TIBC Ferritin Total Bilirubin Direct Bilirubin AST ALT Alkaline Phosphatase Total Creatine Kinase 01167 H CK-MB (CK-2) Troponin T C-Reactive Protein Total Protein Albumin Triglycerides LDL Cholesterol Direct HDL Cholesterol Free T4 PTH Intact Urine WBC (Auto) Urine Creatinine Salicylates Acetaminophen Crossmatch 03/21/19 03/21/19 03/21/19 08:29 11:43 12:00 WBC RBC Hgb Hct RDW Plt Count Lymph % (Auto) [place] % (Auto) Lymph # Seg Neutrophils % Seg Neuts % (Manual) Lymphocytes % (Manual) Monocytes % (Manual) Nucleated RBC % Seg Neutrophils # Seg Neutrophils # Man Lymphocytes # (Manual) Monocytes # (Manual) PT INR D-Dimer Heparin Anti-Xa Level POC ABG pH ABG pH POC ABG pCO2 POC ABG pO2 ABG pO2 ABG HCO3 ABG O2 Saturation ABG Base Excess ABG Hemoglobin Oxyhemoglobin Sodium Potassium Chloride Carbon Dioxide BUN Creatinine Glucose POC Glucose 123 H Lactic Acid 2.60 H* 2.20 H* Calcium Ionized Calcium Phosphorus Magnesium Iron TIBC Ferritin Total Bilirubin Direct Bilirubin AST ALT Alkaline Phosphatase Total Creatine Kinase CK-MB (CK-2) Troponin T C-Reactive Protein Total Protein Albumin Triglycerides LDL Cholesterol Direct HDL Cholesterol Free T4 PTH Intact Urine WBC (Auto) Urine Creatinine Salicylates Acetaminophen Crossmatch 03/21/19 03/21/19 03/21/19 14:11 18:28 19:32 WBC RBC Hgb Hct RDW Plt Count Lymph % (Auto) [place] % (Auto) Lymph # Seg Neutrophils % Seg Neuts % (Manual) Lymphocytes % (Manual) Monocytes % (Manual) Nucleated RBC % Seg Neutrophils # Seg Neutrophils # Man Lymphocytes # (Manual) Monocytes # (Manual) PT INR D-Dimer Heparin Anti-Xa Level POC ABG pH 7.293 L ABG pH POC ABG pCO2 POC ABG pO2 ABG pO2 ABG HCO3 ABG O2 Saturation ABG Base Excess ABG Hemoglobin Oxyhemoglobin Sodium Potassium Chloride Carbon Dioxide BUN Creatinine Glucose POC Glucose 153 H Lactic Acid 2.10 H* Calcium Ionized Calcium Phosphorus Magnesium Iron TIBC Ferritin Total Bilirubin Direct Bilirubin AST ALT Alkaline Phosphatase Total Creatine Kinase CK-MB (CK-2) Troponin T C-Reactive Protein Total Protein Albumin Triglycerides LDL Cholesterol Direct HDL Cholesterol Free T4 PTH Intact Urine WBC (Auto) Urine Creatinine Salicylates Acetaminophen Crossmatch 03/21/19 03/22/19 03/22/19 23:38 05:08 05:51 WBC RBC Hgb Hct RDW Plt Count Lymph % (Auto) [place] % (Auto) Lymph # Seg Neutrophils % Seg Neuts % (Manual) Lymphocytes % (Manual) Monocytes % (Manual) Nucleated RBC % Seg Neutrophils # Seg Neutrophils # Man Lymphocytes # (Manual) Monocytes # (Manual) PT INR D-Dimer Heparin Anti-Xa Level POC ABG pH 7.283 L ABG pH POC ABG pCO2 POC ABG pO2 53 L ABG pO2 ABG HCO3 ABG O2 Saturation ABG Base Excess ABG Hemoglobin Oxyhemoglobin Sodium Potassium Chloride Carbon Dioxide BUN Creatinine Glucose POC Glucose 149 H 131 H Lactic Acid Calcium Ionized Calcium Phosphorus Magnesium Iron TIBC Ferritin Total Bilirubin Direct Bilirubin AST ALT Alkaline Phosphatase Total Creatine Kinase CK-MB (CK-2) Troponin T C-Reactive Protein Total Protein Albumin Triglycerides LDL Cholesterol Direct HDL Cholesterol Free T4 PTH Intact Urine WBC (Auto) Urine Creatinine Salicylates Acetaminophen Crossmatch 03/22/19 03/22/19 03/22/19 08:00 08:00 18:19 WBC 36.7 H RBC Hgb 11.0 L Hct 33.5 L RDW 15.5 H Plt Count 43 L Lymph % (Auto) [place] % (Auto) Lymph # Seg Neutrophils % Seg Neuts % (Manual) 87.0 H Lymphocytes % (Manual) 7.0 L Monocytes % (Manual) Nucleated RBC % Seg Neutrophils # Seg Neutrophils # Man 31.9 H Lymphocytes # (Manual) Monocytes # (Manual) PT INR D-Dimer Heparin Anti-Xa Level POC ABG pH ABG pH POC ABG pCO2 46.4 H POC ABG pO2 108 H ABG pO2 ABG HCO3 ABG O2 Saturation ABG Base Excess ABG Hemoglobin Oxyhemoglobin Sodium 132 L Potassium 5.6 H Chloride 89.6 L Carbon Dioxide 20 L BUN 101 H Creatinine 7.4 H Glucose 124 H POC Glucose Lactic Acid Calcium 5.2 L* Ionized Calcium Phosphorus Magnesium Iron TIBC Ferritin Total Bilirubin 2.80 H Direct Bilirubin AST 119 H ALT 86 H Alkaline Phosphatase 245 H Total Creatine Kinase CK-MB (CK-2) Troponin T C-Reactive Protein Total Protein 5.6 L Albumin 2.5 L Triglycerides LDL Cholesterol Direct HDL Cholesterol Free T4 PTH Intact Urine WBC (Auto) Urine Creatinine Salicylates Acetaminophen Crossmatch 03/22/19 03/23/19 03/23/19 20:37 04:49 05:28 WBC 35.9 H RBC Hgb 10.8 L Hct 33.2 L RDW 15.5 H Plt Count 49 L Lymph % (Auto) [place] % (Auto) Lymph # Seg Neutrophils % Seg Neuts % (Manual) 81.0 H Lymphocytes % (Manual) 3.5 L Monocytes % (Manual) Nucleated RBC % Seg Neutrophils # Seg Neutrophils # Man 29.1 H Lymphocytes # (Manual) Monocytes # (Manual) 1.4 H PT INR D-Dimer Heparin Anti-Xa Level POC ABG pH 7.296 L ABG pH POC ABG pCO2 46.2 H POC ABG pO2 ABG pO2 ABG HCO3 ABG O2 Saturation ABG Base Excess ABG Hemoglobin Oxyhemoglobin Sodium 129 L Potassium 5.2 H Chloride 91.1 L Carbon Dioxide BUN 91 H Creatinine 6.6 H Glucose 190 H POC Glucose Lactic Acid Calcium 5.3 L* Ionized Calcium Phosphorus Magnesium Iron TIBC Ferritin Total Bilirubin 1.80 H Direct Bilirubin AST 80 H ALT 62 H Alkaline Phosphatase 209 H Total Creatine Kinase 9758 H CK-MB (CK-2) Troponin T C-Reactive Protein Total Protein 5.2 L Albumin 2.2 L Triglycerides LDL Cholesterol Direct HDL Cholesterol Free T4 PTH Intact Urine WBC (Auto) Urine Creatinine Salicylates Acetaminophen Crossmatch 03/23/19 03/23/19 03/23/19 05:28 05:31 11:33 WBC 29.7 H RBC 3.59 L Hgb 10.1 L Hct 31.1 L RDW 15.4 H Plt Count 47 L Lymph % (Auto) [place] % (Auto) Lymph # Seg Neutrophils % Seg Neuts % (Manual) 89.0 H Lymphocytes % (Manual) 6.0 L Monocytes % (Manual) Nucleated RBC % 1.0 H Seg Neutrophils # Seg Neutrophils # Man 26.4 H Lymphocytes # (Manual) Monocytes # (Manual) PT INR D-Dimer Heparin Anti-Xa Level POC ABG pH ABG pH POC ABG pCO2 POC ABG pO2 ABG pO2 ABG HCO3 ABG O2 Saturation ABG Base Excess ABG Hemoglobin Oxyhemoglobin Sodium Potassium Chloride Carbon Dioxide BUN Creatinine Glucose POC Glucose 122 H 113 H Lactic Acid Calcium Ionized Calcium Phosphorus Magnesium Iron TIBC Ferritin Total Bilirubin Direct Bilirubin AST ALT Alkaline Phosphatase Total Creatine Kinase CK-MB (CK-2) Troponin T C-Reactive Protein Total Protein Albumin Triglycerides LDL Cholesterol Direct HDL Cholesterol Free T4 PTH Intact Urine WBC (Auto) Urine Creatinine Salicylates Acetaminophen Crossmatch 03/23/19 03/24/19 03/24/19 17:47 00:00 04:50 WBC 35.0 H RBC Hgb 10.4 L Hct 32.4 L RDW Plt Count 60 L Lymph % (Auto) [place] % (Auto) Lymph # Seg Neutrophils % Seg Neuts % (Manual) 93.0 H Lymphocytes % (Manual) 5.0 L Monocytes % (Manual) Nucleated RBC % 7.0 H Seg Neutrophils # Seg Neutrophils # Man 32.6 H Lymphocytes # (Manual) Monocytes # (Manual) PT INR D-Dimer Heparin Anti-Xa Level POC ABG pH ABG pH POC ABG pCO2 POC ABG pO2 ABG pO2 ABG HCO3 ABG O2 Saturation ABG Base Excess ABG Hemoglobin Oxyhemoglobin Sodium Potassium Chloride Carbon Dioxide BUN Creatinine Glucose POC Glucose 111 H 108 H Lactic Acid Calcium Ionized Calcium Phosphorus Magnesium Iron TIBC Ferritin Total Bilirubin Direct Bilirubin AST ALT Alkaline Phosphatase Total Creatine Kinase CK-MB (CK-2) Troponin T C-Reactive Protein Total Protein Albumin Triglycerides LDL Cholesterol Direct HDL Cholesterol Free T4 PTH Intact Urine WBC (Auto) Urine Creatinine Salicylates Acetaminophen Crossmatch 03/24/19 03/24/19 03/24/19 04:50 05:06 12:55 WBC RBC Hgb Hct RDW Plt Count Lymph % (Auto) [place] % (Auto) Lymph # Seg Neutrophils % Seg Neuts % (Manual) Lymphocytes % (Manual) Monocytes % (Manual) Nucleated RBC % Seg Neutrophils # Seg Neutrophils # Man Lymphocytes # (Manual) Monocytes # (Manual) PT INR D-Dimer Heparin Anti-Xa Level POC ABG pH ABG pH POC ABG pCO2 POC ABG pO2 ABG pO2 ABG HCO3 ABG O2 Saturation ABG Base Excess ABG Hemoglobin Oxyhemoglobin Sodium 134 L Potassium 5.1 H Chloride 95.3 L Carbon Dioxide 21 L BUN 85 H Creatinine 6.4 H Glucose 109 H POC Glucose 112 H 110 H Lactic Acid Calcium 5.8 L* Ionized Calcium Phosphorus Magnesium Iron TIBC Ferritin Total Bilirubin Direct Bilirubin AST ALT Alkaline Phosphatase Total Creatine Kinase 5747 H CK-MB (CK-2) Troponin T C-Reactive Protein Total Protein Albumin Triglycerides LDL Cholesterol Direct HDL Cholesterol Free T4 PTH Intact Urine WBC (Auto) Urine Creatinine Salicylates Acetaminophen Crossmatch 03/24/19 03/25/19 03/25/19 23:29 05:00 05:00 WBC RBC Hgb Hct RDW Plt Count Lymph % (Auto) [place] % (Auto) Lymph # Seg Neutrophils % Seg Neuts % (Manual) Lymphocytes % (Manual) Monocytes % (Manual) Nucleated RBC % Seg Neutrophils # Seg Neutrophils # Man Lymphocytes # (Manual) Monocytes # (Manual) PT INR D-Dimer Heparin Anti-Xa Level POC ABG pH ABG pH POC ABG pCO2 POC ABG pO2 ABG pO2 ABG HCO3 ABG O2 Saturation ABG Base Excess ABG Hemoglobin Oxyhemoglobin Sodium 133 L Potassium Chloride 94.0 L Carbon Dioxide 21 L BUN 81 H Creatinine 6.4 H Glucose POC Glucose 109 H Lactic Acid Calcium 5.5 L* Ionized Calcium Phosphorus Magnesium Iron TIBC Ferritin Total Bilirubin Direct Bilirubin AST 80 H ALT Alkaline Phosphatase 202 H Total Creatine Kinase 3589 H CK-MB (CK-2) Troponin T C-Reactive Protein Total Protein 5.3 L Albumin 2.4 L Triglycerides LDL Cholesterol Direct HDL Cholesterol Free T4 PTH Intact 329.9 H Urine WBC (Auto) Urine Creatinine Salicylates Acetaminophen Crossmatch 03/25/19 03/25/19 03/26/19 05:00 06:30 04:30 WBC 23.3 H RBC 3.61 L Hgb 10.2 L Hct 31.2 L RDW Plt Count 57 L Lymph % (Auto) [place] % (Auto) Lymph # Seg Neutrophils % Seg Neuts % (Manual) 92.0 H Lymphocytes % (Manual) 6.0 L Monocytes % (Manual) Nucleated RBC % Seg Neutrophils # Seg Neutrophils # Man 21.4 H Lymphocytes # (Manual) Monocytes # (Manual) PT INR D-Dimer Heparin Anti-Xa Level POC ABG pH ABG pH 7.326 L POC ABG pCO2 POC ABG pO2 ABG pO2 109.5 H 137.4 H ABG HCO3 18.8 L 18.6 L ABG O2 Saturation ABG Base Excess -4.4 L -6.8 L ABG Hemoglobin 10.1 L 9.9 L Oxyhemoglobin Sodium Potassium Chloride Carbon Dioxide BUN Creatinine Glucose POC Glucose Lactic Acid Calcium Ionized Calcium Phosphorus Magnesium Iron TIBC Ferritin Total Bilirubin Direct Bilirubin AST ALT Alkaline Phosphatase Total Creatine Kinase CK-MB (CK-2) Troponin T C-Reactive Protein Total Protein Albumin Triglycerides LDL Cholesterol Direct HDL Cholesterol Free T4 PTH Intact Urine WBC (Auto) Urine Creatinine Salicylates Acetaminophen Crossmatch 03/26/19 03/26/19 03/26/19 23:22 Unknown Unknown WBC 19.5 H RBC 3.44 L Hgb 9.8 L Hct 29.9 L RDW Plt Count 85 L Lymph % (Auto) [place] % (Auto) Lymph # Seg Neutrophils % Seg Neuts % (Manual) 95.0 H Lymphocytes % (Manual) 3.0 L Monocytes % (Manual) Nucleated RBC % Seg Neutrophils # Seg Neutrophils # Man 18.5 H Lymphocytes # (Manual) 0.6 L Monocytes # (Manual) PT INR D-Dimer Heparin Anti-Xa Level POC ABG pH ABG pH POC ABG pCO2 POC ABG pO2 ABG pO2 ABG HCO3 ABG O2 Saturation ABG Base Excess ABG Hemoglobin Oxyhemoglobin Sodium 135 L Potassium 5.2 H D Chloride 92.2 L Carbon Dioxide 18 L BUN 109 H Creatinine 8.5 H Glucose 117 H POC Glucose 69 L Lactic Acid Calcium 4.5 L* D Ionized Calcium Phosphorus Magnesium Iron TIBC Ferritin Total Bilirubin Direct Bilirubin AST ALT Alkaline Phosphatase Total Creatine Kinase 4527 H CK-MB (CK-2) Troponin T C-Reactive Protein Total Protein Albumin Triglycerides LDL Cholesterol Direct HDL Cholesterol Free T4 PTH Intact Urine WBC (Auto) Urine Creatinine Salicylates Acetaminophen Crossmatch 03/27/19 03/27/19 03/27/19 04:30 04:30 09:00 WBC 19.2 H RBC 3.42 L Hgb 9.9 L Hct 30.0 L RDW Plt Count 84 L Lymph % (Auto) [place] % (Auto) Lymph # Seg Neutrophils % Seg Neuts % (Manual) Lymphocytes % (Manual) Monocytes % (Manual) Nucleated RBC % Seg Neutrophils # Seg Neutrophils # Man Lymphocytes # (Manual) Monocytes # (Manual) PT INR D-Dimer Heparin Anti-Xa Level POC ABG pH ABG pH POC ABG pCO2 POC ABG pO2 ABG pO2 ABG HCO3 ABG O2 Saturation ABG Base Excess ABG Hemoglobin Oxyhemoglobin Sodium 135 L Potassium Chloride 93.5 L Carbon Dioxide BUN 84 H Creatinine 7.1 H Glucose POC Glucose Lactic Acid Calcium 5.0 L* Ionized Calcium Phosphorus Magnesium Iron TIBC Ferritin Total Bilirubin Direct Bilirubin AST 78 H ALT Alkaline Phosphatase 135 H Total Creatine Kinase 4677 H CK-MB (CK-2) Troponin T C-Reactive Protein Total Protein 4.8 L Albumin 2.3 L Triglycerides 409 H LDL Cholesterol Direct HDL Cholesterol Free T4 PTH Intact Urine WBC (Auto) Urine Creatinine Salicylates Acetaminophen Crossmatch 03/27/19 03/27/19 03/27/19 12:37 14:15 14:15 WBC RBC Hgb 9.7 L Hct 29.5 L RDW Plt Count 87 L Lymph % (Auto) [place] % (Auto) Lymph # Seg Neutrophils % Seg Neuts % (Manual) Lymphocytes % (Manual) Monocytes % (Manual) Nucleated RBC % Seg Neutrophils # Seg Neutrophils # Man Lymphocytes # (Manual) Monocytes # (Manual) PT 15.9 H INR 1.30 H D-Dimer Heparin Anti-Xa Level POC ABG pH ABG pH POC ABG pCO2 POC ABG pO2 ABG pO2 ABG HCO3 ABG O2 Saturation ABG Base Excess ABG Hemoglobin Oxyhemoglobin Sodium Potassium Chloride Carbon Dioxide BUN Creatinine Glucose POC Glucose 129 H Lactic Acid Calcium Ionized Calcium Phosphorus Magnesium Iron TIBC Ferritin Total Bilirubin Direct Bilirubin AST ALT Alkaline Phosphatase Total Creatine Kinase CK-MB (CK-2) Troponin T C-Reactive Protein Total Protein Albumin Triglycerides LDL Cholesterol Direct HDL Cholesterol Free T4 PTH Intact Urine WBC (Auto) Urine Creatinine Salicylates Acetaminophen Crossmatch 03/27/19 03/27/19 03/27/19 18:00 19:22 19:23 WBC RBC Hgb Hct RDW Plt Count Lymph % (Auto) [place] % (Auto) Lymph # Seg Neutrophils % Seg Neuts % (Manual) Lymphocytes % (Manual) Monocytes % (Manual) Nucleated RBC % Seg Neutrophils # Seg Neutrophils # Man Lymphocytes # (Manual) Monocytes # (Manual) PT INR D-Dimer Heparin Anti-Xa Level < 0.10 L POC ABG pH ABG pH POC ABG pCO2 POC ABG pO2 ABG pO2 ABG HCO3 ABG O2 Saturation ABG Base Excess ABG Hemoglobin Oxyhemoglobin Sodium Potassium Chloride Carbon Dioxide BUN Creatinine Glucose POC Glucose 121 H Lactic Acid Calcium Ionized Calcium Phosphorus Magnesium Iron TIBC Ferritin Total Bilirubin Direct Bilirubin AST ALT Alkaline Phosphatase Total Creatine Kinase 4517 H CK-MB (CK-2) Troponin T C-Reactive Protein Total Protein Albumin Triglycerides LDL Cholesterol Direct HDL Cholesterol Free T4 PTH Intact Urine WBC (Auto) Urine Creatinine Salicylates Acetaminophen Crossmatch 03/27/19 03/27/19 03/28/19 22:10 23:52 03:49 WBC RBC Hgb Hct RDW Plt Count Lymph % (Auto) [place] % (Auto) Lymph # Seg Neutrophils % Seg Neuts % (Manual) Lymphocytes % (Manual) Monocytes % (Manual) Nucleated RBC % Seg Neutrophils # Seg Neutrophils # Man Lymphocytes # (Manual) Monocytes # (Manual) PT INR D-Dimer Heparin Anti-Xa Level POC ABG pH 7.338 L ABG pH POC ABG pCO2 33.1 L POC ABG pO2 ABG pO2 ABG HCO3 ABG O2 Saturation ABG Base Excess ABG Hemoglobin Oxyhemoglobin Sodium Potassium Chloride Carbon Dioxide BUN Creatinine Glucose POC Glucose 113 H 117 H Lactic Acid Calcium Ionized Calcium Phosphorus Magnesium Iron TIBC Ferritin Total Bilirubin Direct Bilirubin AST ALT Alkaline Phosphatase Total Creatine Kinase CK-MB (CK-2) Troponin T C-Reactive Protein Total Protein Albumin Triglycerides LDL Cholesterol Direct HDL Cholesterol Free T4 PTH Intact Urine WBC (Auto) Urine Creatinine Salicylates Acetaminophen Crossmatch 03/28/19 03/28/19 03/28/19 05:13 05:13 06:18 WBC RBC Hgb Hct RDW Plt Count Lymph % (Auto) [place] % (Auto) Lymph # Seg Neutrophils % Seg Neuts % (Manual) Lymphocytes % (Manual) Monocytes % (Manual) Nucleated RBC % Seg Neutrophils # Seg Neutrophils # Man Lymphocytes # (Manual) Monocytes # (Manual) PT INR D-Dimer Heparin Anti-Xa Level 0.23 L POC ABG pH ABG pH POC ABG pCO2 POC ABG pO2 ABG pO2 ABG HCO3 ABG O2 Saturation ABG Base Excess ABG Hemoglobin Oxyhemoglobin Sodium 135 L Potassium 5.5 H D Chloride 95.1 L Carbon Dioxide 16 L D BUN 129 H Creatinine 9.3 H Glucose 158 H POC Glucose 202 H Lactic Acid Calcium 4.0 L* D Ionized Calcium Phosphorus 12.40 H Magnesium Iron TIBC Ferritin Total Bilirubin Direct Bilirubin AST ALT Alkaline Phosphatase Total Creatine Kinase 4266 H CK-MB (CK-2) Troponin T C-Reactive Protein Total Protein Albumin Triglycerides LDL Cholesterol Direct HDL Cholesterol Free T4 PTH Intact Urine WBC (Auto) Urine Creatinine Salicylates Acetaminophen Crossmatch 03/28/19 03/28/19 03/28/19 08:25 10:00 12:00 WBC RBC Hgb 4.9 L* D Hct 15.4 L* D RDW Plt Count Lymph % (Auto) [place] % (Auto) Lymph # Seg Neutrophils % Seg Neuts % (Manual) Lymphocytes % (Manual) Monocytes % (Manual) Nucleated RBC % Seg Neutrophils # Seg Neutrophils # Man Lymphocytes # (Manual) Monocytes # (Manual) PT 17.9 H INR 1.52 H D-Dimer 4845.98 H Heparin Anti-Xa Level POC ABG pH ABG pH POC ABG pCO2 POC ABG pO2 ABG pO2 ABG HCO3 ABG O2 Saturation ABG Base Excess ABG Hemoglobin Oxyhemoglobin Sodium Potassium Chloride Carbon Dioxide BUN Creatinine Glucose POC Glucose Lactic Acid Calcium Ionized Calcium Phosphorus Magnesium Iron TIBC Ferritin Total Bilirubin Direct Bilirubin AST ALT Alkaline Phosphatase Total Creatine Kinase CK-MB (CK-2) Troponin T C-Reactive Protein Total Protein Albumin Triglycerides LDL Cholesterol Direct HDL Cholesterol Free T4 PTH Intact Urine WBC (Auto) Urine Creatinine Salicylates Acetaminophen Crossmatch See Detail 03/28/19 03/28/19 03/28/19 12:28 14:10 17:43 WBC RBC Hgb 5.9 L* Hct 18.3 L* RDW Plt Count Lymph % (Auto) [place] % (Auto) Lymph # Seg Neutrophils % Seg Neuts % (Manual) Lymphocytes % (Manual) Monocytes % (Manual) Nucleated RBC % Seg Neutrophils # Seg Neutrophils # Man Lymphocytes # (Manual) Monocytes # (Manual) PT INR D-Dimer Heparin Anti-Xa Level POC ABG pH ABG pH POC ABG pCO2 POC ABG pO2 ABG pO2 ABG HCO3 ABG O2 Saturation ABG Base Excess ABG Hemoglobin Oxyhemoglobin Sodium Potassium Chloride Carbon Dioxide BUN Creatinine Glucose POC Glucose 153 H 159 H Lactic Acid Calcium Ionized Calcium Phosphorus Magnesium Iron TIBC Ferritin Total Bilirubin Direct Bilirubin AST ALT Alkaline Phosphatase Total Creatine Kinase CK-MB (CK-2) Troponin T C-Reactive Protein Total Protein Albumin Triglycerides LDL Cholesterol Direct HDL Cholesterol Free T4 PTH Intact Urine WBC (Auto) Urine Creatinine Salicylates Acetaminophen Crossmatch 03/28/19 03/28/19 03/28/19 18:10 Unknown 23:59 WBC 24.8 H RBC 3.42 L Hgb 10.2 L D Hct 31.1 L D RDW 15.4 H Plt Count 54 L Lymph % (Auto) [place] % (Auto) Lymph # Seg Neutrophils % Seg Neuts % (Manual) 91.0 H Lymphocytes % (Manual) 8.0 L Monocytes % (Manual) Nucleated RBC % Seg Neutrophils # Seg Neutrophils # Man 22.6 H Lymphocytes # (Manual) Monocytes # (Manual) PT INR D-Dimer Heparin Anti-Xa Level POC ABG pH ABG pH POC ABG pCO2 POC ABG pO2 ABG pO2 ABG HCO3 ABG O2 Saturation ABG Base Excess ABG Hemoglobin Oxyhemoglobin Sodium Potassium 5.7 H Chloride Carbon Dioxide BUN Creatinine Glucose POC Glucose 107 H Lactic Acid Calcium Ionized Calcium Phosphorus Magnesium Iron TIBC Ferritin Total Bilirubin Direct Bilirubin AST ALT Alkaline Phosphatase Total Creatine Kinase CK-MB (CK-2) Troponin T C-Reactive Protein Total Protein Albumin Triglycerides LDL Cholesterol Direct HDL Cholesterol Free T4 PTH Intact Urine WBC (Auto) Urine Creatinine Salicylates Acetaminophen Crossmatch 03/29/19 03/29/19 03/29/19 04:29 05:46 06:22 WBC RBC Hgb 8.6 L Hct 25.7 L RDW Plt Count 93 L Lymph % (Auto) [place] % (Auto) Lymph # Seg Neutrophils % Seg Neuts % (Manual) Lymphocytes % (Manual) Monocytes % (Manual) Nucleated RBC % Seg Neutrophils # Seg Neutrophils # Man Lymphocytes # (Manual) Monocytes # (Manual) PT INR D-Dimer Heparin Anti-Xa Level POC ABG pH ABG pH POC ABG pCO2 32.2 L POC ABG pO2 ABG pO2 ABG HCO3 ABG O2 Saturation ABG Base Excess ABG Hemoglobin Oxyhemoglobin Sodium Potassium Chloride Carbon Dioxide BUN Creatinine Glucose POC Glucose 113 H Lactic Acid Calcium Ionized Calcium Phosphorus Magnesium Iron TIBC Ferritin Total Bilirubin Direct Bilirubin AST ALT Alkaline Phosphatase Total Creatine Kinase CK-MB (CK-2) Troponin T C-Reactive Protein Total Protein Albumin Triglycerides LDL Cholesterol Direct HDL Cholesterol Free T4 PTH Intact Urine WBC (Auto) Urine Creatinine Salicylates Acetaminophen Crossmatch 03/29/19 03/29/19 03/29/19 06:22 06:22 06:22 WBC 23.2 H RBC 2.91 L Hgb 8.6 L Hct 25.8 L RDW Plt Count 91 L Lymph % (Auto) [place] % (Auto) Lymph # Seg Neutrophils % Seg Neuts % (Manual) Lymphocytes % (Manual) Monocytes % (Manual) Nucleated RBC % Seg Neutrophils # Seg Neutrophils # Man Lymphocytes # (Manual) Monocytes # (Manual) PT INR D-Dimer Heparin Anti-Xa Level POC ABG pH ABG pH POC ABG pCO2 POC ABG pO2 ABG pO2 ABG HCO3 ABG O2 Saturation ABG Base Excess ABG Hemoglobin Oxyhemoglobin Sodium 133 L Potassium Chloride 93.8 L Carbon Dioxide 18 L BUN 109 H Creatinine 7.4 H Glucose 124 H POC Glucose Lactic Acid Calcium 4.6 L* Ionized Calcium Phosphorus Magnesium Iron TIBC Ferritin Total Bilirubin Direct Bilirubin AST ALT Alkaline Phosphatase Total Creatine Kinase 3401 H CK-MB (CK-2) Troponin T C-Reactive Protein Total Protein Albumin Triglycerides 309 H LDL Cholesterol Direct HDL Cholesterol Free T4 PTH Intact Urine WBC (Auto) Urine Creatinine Salicylates Acetaminophen Crossmatch 03/29/19 03/29/19 03/29/19 11:48 11:48 18:24 WBC RBC Hgb 7.8 L Hct 23.2 L RDW Plt Count Lymph % (Auto) [place] % (Auto) Lymph # Seg Neutrophils % Seg Neuts % (Manual) Lymphocytes % (Manual) Monocytes % (Manual) Nucleated RBC % Seg Neutrophils # Seg Neutrophils # Man Lymphocytes # (Manual) Monocytes # (Manual) PT 15.3 H INR 1.24 H D-Dimer Heparin Anti-Xa Level POC ABG pH ABG pH POC ABG pCO2 POC ABG pO2 ABG pO2 ABG HCO3 ABG O2 Saturation ABG Base Excess ABG Hemoglobin Oxyhemoglobin Sodium Potassium Chloride Carbon Dioxide BUN Creatinine Glucose POC Glucose 122 H Lactic Acid Calcium Ionized Calcium Phosphorus Magnesium Iron TIBC Ferritin Total Bilirubin Direct Bilirubin AST ALT Alkaline Phosphatase Total Creatine Kinase CK-MB (CK-2) Troponin T C-Reactive Protein Total Protein Albumin Triglycerides LDL Cholesterol Direct HDL Cholesterol Free T4 PTH Intact Urine WBC (Auto) Urine Creatinine Salicylates Acetaminophen Crossmatch 03/30/19 03/30/19 03/30/19 00:40 04:31 05:04 WBC RBC Hgb 7.6 L Hct 23.0 L RDW Plt Count Lymph % (Auto) [place] % (Auto) Lymph # Seg Neutrophils % Seg Neuts % (Manual) Lymphocytes % (Manual) Monocytes % (Manual) Nucleated RBC % Seg Neutrophils # Seg Neutrophils # Man Lymphocytes # (Manual) Monocytes # (Manual) PT INR D-Dimer Heparin Anti-Xa Level POC ABG pH 7.346 L ABG pH POC ABG pCO2 POC ABG pO2 62 L ABG pO2 ABG HCO3 ABG O2 Saturation ABG Base Excess ABG Hemoglobin Oxyhemoglobin Sodium Potassium Chloride Carbon Dioxide BUN 79 H Creatinine 6.4 H Glucose POC Glucose Lactic Acid Calcium 6.1 L D Ionized Calcium Phosphorus Magnesium Iron TIBC Ferritin Total Bilirubin Direct Bilirubin AST ALT Alkaline Phosphatase Total Creatine Kinase CK-MB (CK-2) Troponin T C-Reactive Protein Total Protein Albumin Triglycerides LDL Cholesterol Direct HDL Cholesterol Free T4 PTH Intact Urine WBC (Auto) Urine Creatinine Salicylates Acetaminophen Crossmatch 03/30/19 03/30/19 03/30/19 08:45 12:09 22:43 WBC 14.3 H RBC 2.33 L Hgb 7.0 L 7.4 L Hct 21.0 L 22.3 L RDW 15.6 H Plt Count 135 L Lymph % (Auto) [place] % (Auto) Lymph # Seg Neutrophils % Seg Neuts % (Manual) Lymphocytes % (Manual) Monocytes % (Manual) Nucleated RBC % Seg Neutrophils # Seg Neutrophils # Man Lymphocytes # (Manual) Monocytes # (Manual) PT INR D-Dimer Heparin Anti-Xa Level POC ABG pH ABG pH POC ABG pCO2 POC ABG pO2 ABG pO2 ABG HCO3 ABG O2 Saturation ABG Base Excess ABG Hemoglobin Oxyhemoglobin Sodium Potassium Chloride Carbon Dioxide BUN Creatinine Glucose POC Glucose Lactic Acid Calcium Ionized Calcium 3.7 L Phosphorus Magnesium Iron TIBC Ferritin Total Bilirubin Direct Bilirubin AST ALT Alkaline Phosphatase Total Creatine Kinase CK-MB (CK-2) Troponin T C-Reactive Protein Total Protein Albumin Triglycerides LDL Cholesterol Direct HDL Cholesterol Free T4 PTH Intact Urine WBC (Auto) Urine Creatinine Salicylates Acetaminophen Crossmatch 03/30/19 03/30/19 03/31/19 23:38 Unknown 04:44 WBC 11.5 H RBC 2.40 L Hgb 7.3 L Hct 21.9 L RDW 15.4 H Plt Count Lymph % (Auto) 10.6 L [place] % (Auto) Lymph # Seg Neutrophils % 81.7 H Seg Neuts % (Manual) Lymphocytes % (Manual) Monocytes % (Manual) Nucleated RBC % Seg Neutrophils # 9.4 H Seg Neutrophils # Man Lymphocytes # (Manual) Monocytes # (Manual) PT INR D-Dimer Heparin Anti-Xa Level POC ABG pH ABG pH POC ABG pCO2 POC ABG pO2 ABG pO2 ABG HCO3 ABG O2 Saturation ABG Base Excess ABG Hemoglobin Oxyhemoglobin Sodium Potassium Chloride Carbon Dioxide BUN Creatinine Glucose POC Glucose 155 H Lactic Acid Calcium Ionized Calcium Phosphorus Magnesium Iron TIBC Ferritin Total Bilirubin Direct Bilirubin 0.4 H AST 63 H ALT Alkaline Phosphatase Total Creatine Kinase CK-MB (CK-2) Troponin T C-Reactive Protein Total Protein 4.9 L Albumin 2.2 L Triglycerides LDL Cholesterol Direct HDL Cholesterol Free T4 PTH Intact Urine WBC (Auto) Urine Creatinine Salicylates Acetaminophen Crossmatch 03/31/19 03/31/19 03/31/19 04:44 05:44 08:20 WBC RBC Hgb Hct RDW Plt Count Lymph % (Auto) [place] % (Auto) Lymph # Seg Neutrophils % Seg Neuts % (Manual) Lymphocytes % (Manual) Monocytes % (Manual) Nucleated RBC % Seg Neutrophils # Seg Neutrophils # Man Lymphocytes # (Manual) Monocytes # (Manual) PT INR D-Dimer Heparin Anti-Xa Level POC ABG pH ABG pH POC ABG pCO2 53.5 H POC ABG pO2 62 L ABG pO2 ABG HCO3 ABG O2 Saturation ABG Base Excess ABG Hemoglobin Oxyhemoglobin Sodium 135 L Potassium Chloride 96.7 L Carbon Dioxide 19 L BUN 94 H Creatinine 7.8 H Glucose POC Glucose Lactic Acid Calcium 5.3 L* Ionized Calcium Phosphorus 8.20 H Magnesium Iron TIBC Ferritin Total Bilirubin Direct Bilirubin 0.4 H AST 60 H ALT Alkaline Phosphatase Total Creatine Kinase CK-MB (CK-2) Troponin T C-Reactive Protein Total Protein 4.8 L Albumin 2.1 L Triglycerides LDL Cholesterol Direct HDL Cholesterol Free T4 PTH Intact Urine WBC (Auto) Urine Creatinine Salicylates Acetaminophen Crossmatch 03/31/19 04/01/19 04/01/19 22:14 04:27 04:27 WBC RBC 2.60 L Hgb 8.0 L Hct 24.1 L RDW 15.7 H Plt Count Lymph % (Auto) 7.9 L [place] % (Auto) Lymph # 0.7 L Seg Neutrophils % 83.6 H Seg Neuts % (Manual) Lymphocytes % (Manual) Monocytes % (Manual) Nucleated RBC % Seg Neutrophils # Seg Neutrophils # Man Lymphocytes # (Manual) Monocytes # (Manual) PT INR D-Dimer Heparin Anti-Xa Level POC ABG pH 7.286 L ABG pH POC ABG pCO2 54.7 H POC ABG pO2 179 H ABG pO2 ABG HCO3 ABG O2 Saturation ABG Base Excess ABG Hemoglobin Oxyhemoglobin Sodium Potassium Chloride Carbon Dioxide BUN 68 H Creatinine 6.6 H Glucose POC Glucose Lactic Acid Calcium 6.5 L D Ionized Calcium Phosphorus 7.30 H Magnesium Iron TIBC Ferritin Total Bilirubin Direct Bilirubin AST ALT Alkaline Phosphatase Total Creatine Kinase 1652 H CK-MB (CK-2) Troponin T C-Reactive Protein Total Protein Albumin Triglycerides LDL Cholesterol Direct HDL Cholesterol Free T4 PTH Intact Urine WBC (Auto) Urine Creatinine Salicylates Acetaminophen Crossmatch 04/01/19 04/01/19 04/01/19 05:14 05:37 18:37 WBC RBC Hgb Hct RDW Plt Count Lymph % (Auto) [place] % (Auto) Lymph # Seg Neutrophils % Seg Neuts % (Manual) Lymphocytes % (Manual) Monocytes % (Manual) Nucleated RBC % Seg Neutrophils # Seg Neutrophils # Man Lymphocytes # (Manual) Monocytes # (Manual) PT INR D-Dimer Heparin Anti-Xa Level POC ABG pH 7.283 L ABG pH POC ABG pCO2 53.4 H POC ABG pO2 241 H ABG pO2 ABG HCO3 ABG O2 Saturation ABG Base Excess ABG Hemoglobin Oxyhemoglobin Sodium Potassium Chloride Carbon Dioxide BUN Creatinine Glucose POC Glucose 111 H 119 H Lactic Acid Calcium Ionized Calcium Phosphorus Magnesium Iron TIBC Ferritin Total Bilirubin Direct Bilirubin AST ALT Alkaline Phosphatase Total Creatine Kinase CK-MB (CK-2) Troponin T C-Reactive Protein Total Protein Albumin Triglycerides LDL Cholesterol Direct HDL Cholesterol Free T4 PTH Intact Urine WBC (Auto) Urine Creatinine Salicylates Acetaminophen Crossmatch 04/01/19 04/02/19 04/02/19 21:28 04:40 05:03 WBC RBC 2.36 L Hgb 7.2 L Hct 21.9 L RDW 16.0 H Plt Count Lymph % (Auto) 10.8 L [place] % (Auto) Lymph # 0.8 L Seg Neutrophils % 80.3 H Seg Neuts % (Manual) Lymphocytes % (Manual) Monocytes % (Manual) Nucleated RBC % Seg Neutrophils # Seg Neutrophils # Man Lymphocytes # (Manual) Monocytes # (Manual) PT INR D-Dimer Heparin Anti-Xa Level POC ABG pH 7.299 L 7.300 L ABG pH POC ABG pCO2 48.2 H 45.2 H POC ABG pO2 133 H 107 H ABG pO2 ABG HCO3 ABG O2 Saturation ABG Base Excess ABG Hemoglobin Oxyhemoglobin Sodium Potassium Chloride Carbon Dioxide BUN Creatinine Glucose POC Glucose Lactic Acid Calcium Ionized Calcium Phosphorus Magnesium Iron TIBC Ferritin Total Bilirubin Direct Bilirubin AST ALT Alkaline Phosphatase Total Creatine Kinase CK-MB (CK-2) Troponin T C-Reactive Protein Total Protein Albumin Triglycerides LDL Cholesterol Direct HDL Cholesterol Free T4 PTH Intact Urine WBC (Auto) Urine Creatinine Salicylates Acetaminophen Crossmatch 04/02/19 04/02/19 04/02/19 05:03 05:03 12:15 WBC RBC Hgb 7.4 L Hct 22.6 L RDW Plt Count Lymph % (Auto) [place] % (Auto) Lymph # Seg Neutrophils % Seg Neuts % (Manual) Lymphocytes % (Manual) Monocytes % (Manual) Nucleated RBC % Seg Neutrophils # Seg Neutrophils # Man Lymphocytes # (Manual) Monocytes # (Manual) PT INR D-Dimer Heparin Anti-Xa Level POC ABG pH ABG pH POC ABG pCO2 POC ABG pO2 ABG pO2 ABG HCO3 ABG O2 Saturation ABG Base Excess ABG Hemoglobin Oxyhemoglobin Sodium 136 L Potassium Chloride 97.8 L Carbon Dioxide 18 L BUN 82 H Creatinine 8.2 H Glucose POC Glucose Lactic Acid Calcium 6.7 L Ionized Calcium Phosphorus 7.50 H Magnesium Iron 26 L TIBC 138 L Ferritin 607.0 H Total Bilirubin Direct Bilirubin AST ALT Alkaline Phosphatase Total Creatine Kinase CK-MB (CK-2) Troponin T C-Reactive Protein Total Protein Albumin Triglycerides LDL Cholesterol Direct HDL Cholesterol Free T4 PTH Intact Urine WBC (Auto) Urine Creatinine Salicylates Acetaminophen Crossmatch 04/02/19 04/02/19 04/03/19 16:34 17:14 04:18 WBC RBC Hgb Hct RDW Plt Count Lymph % (Auto) [place] % (Auto) Lymph # Seg Neutrophils % Seg Neuts % (Manual) Lymphocytes % (Manual) Monocytes % (Manual) Nucleated RBC % Seg Neutrophils # Seg Neutrophils # Man Lymphocytes # (Manual) Monocytes # (Manual) PT INR D-Dimer Heparin Anti-Xa Level POC ABG pH ABG pH POC ABG pCO2 POC ABG pO2 146 H ABG pO2 ABG HCO3 ABG O2 Saturation ABG Base Excess ABG Hemoglobin Oxyhemoglobin Sodium Potassium Chloride Carbon Dioxide BUN Creatinine Glucose POC Glucose 108 H Lactic Acid Calcium Ionized Calcium Phosphorus Magnesium Iron TIBC Ferritin Total Bilirubin Direct Bilirubin AST ALT Alkaline Phosphatase Total Creatine Kinase CK-MB (CK-2) Troponin T C-Reactive Protein Total Protein Albumin Triglycerides LDL Cholesterol Direct HDL Cholesterol Free T4 PTH Intact Urine WBC (Auto) Urine Creatinine Salicylates Acetaminophen Crossmatch See Detail 04/03/19 04/03/19 04:25 08:30 WBC RBC 2.40 L Hgb 7.3 L Hct 21.9 L RDW Plt Count Lymph % (Auto) [place] % (Auto) 7.7 H Lymph # 0.9 L Seg Neutrophils % 74.6 H Seg Neuts % (Manual) Lymphocytes % (Manual) Monocytes % (Manual) Nucleated RBC % Seg Neutrophils # Seg Neutrophils # Man Lymphocytes # (Manual) Monocytes # (Manual) PT INR D-Dimer Heparin Anti-Xa Level POC ABG pH ABG pH POC ABG pCO2 POC ABG pO2 ABG pO2 ABG HCO3 ABG O2 Saturation ABG Base Excess ABG Hemoglobin Oxyhemoglobin Sodium 136 L Potassium Chloride 97.0 L Carbon Dioxide BUN 58 H Creatinine 7.3 H Glucose POC Glucose Lactic Acid Calcium 7.5 L Ionized Calcium Phosphorus 5.80 H D Magnesium Iron TIBC Ferritin Total Bilirubin Direct Bilirubin AST ALT Alkaline Phosphatase Total Creatine Kinase CK-MB (CK-2) Troponin T C-Reactive Protein Total Protein Albumin Triglycerides LDL Cholesterol Direct HDL Cholesterol Free T4 PTH Intact Urine WBC (Auto) Urine Creatinine Salicylates Acetaminophen Crossmatch Allied health notes reviewed: nursing
[2019-04-03] MEDS: PARICALCITOL 2 MCG/1 ML INJ IV SCH (12:25)
--- NOTE | 2019-04-03 13:32 | Progress Note ---
Assessment and Plan Patient is a 43 y/o man w/ a history of psychiatric illness (unknown which psychiatric diagnosis he has been given in the past), who presented on 03/16/19 with altered mental status. During the course of admission, patient was found to have sepsis with septic shock, rhabdomyolysis, RUBEN, and multiorgan failure. According to the patient's clinical findings, the patient likely has toxic metabolic encephalopathy. In support of this diagnosis, the multiple metabolic derangements including multiorgan failure, sepsis, septic shock requiring pressor support, RUBEN, rhabdomyolysis. Plan: 1. Metabolic encephalopathy: - Likely due to multiple underlying metabolic derangements, including multiorgan failure, sepsis, septic shock requiring pressor support, RUBEN. - Possible Meningo-encephalitis, however patient had been on Abx since admission, and is waking up when sedation held. LP not likely to be high yield at this point. - Patient on antibiotics per ID. - EEG showed generalized slowing, no seizures or epileptiform activity. - CT head showed diffuse cerebral edema. MRI brain on 03/26/19 showed no acute abnormality. - Continue supportive care per ICU/primary/ID teams. - Discussed at length with patient's brother regarding current neurologic status, altered mental status due to metabolic abnormalities and sepsis/shock. - Will continue to monitor patient. Thank you for allowing me to take part in the care of this patient. Nahid Carroll MD Neurology Subjective Date of service: 04/03/19 Principal diagnosis: Septic Shock; Ac. hypoxemic resp failure; Renzo. PNA; Rhabdomyolysis; RUBEN Interval history: No acute events overnight. Objective - Exam Narrative Exam: Patient is intubated. Opens eyes and nods head to vocal stimulus. Following 1- step commands by squeezing hand and moving feet. PERRL, corneal reflexes diminished, cough/gag weakly intact. Patient moves head with visual threat when checking corneal reflexes. Withdraws to pain stimulus in all extremities. Spontanenous movement noted in all extremities. 2+ reflexes throughout. - Vital Sign Vital Signs - 12hr 04/03/19 04/03/19 04/03/19 01:30 01:45 02:00 Temperature Pulse Rate 89 86 87 Pulse Rate [ From Monitor] Respiratory Rate Blood Pressure 124/53 133/53 130/55 O2 Sat by Pulse 100 100 100 Oximetry 04/03/19 04/03/19 04/03/19 02:15 02:30 02:45 Temperature Pulse Rate 92 H 85 89 Pulse Rate [ From Monitor] Respiratory 20 20 22 Rate Blood Pressure 130/54 129/52 135/55 O2 Sat by Pulse 100 100 100 Oximetry 04/03/19 04/03/19 04/03/19 03:00 03:15 03:30 Temperature Pulse Rate 85 85 83 Pulse Rate [ From Monitor] Respiratory 20 20 20 Rate Blood Pressure 124/49 125/49 119/46 O2 Sat by Pulse 100 100 100 Oximetry 04/03/19 04/03/19 04/03/19 03:33 03:45 04:00 Temperature 100.1 F H Pulse Rate 83 144 H Pulse Rate [ 144 H From Monitor] Respiratory 20 20 Rate Blood Pressure 122/48 O2 Sat by Pulse 100 99 Oximetry 04/03/19 04/03/19 04/03/19 04:01 04:08 04:16 Temperature Pulse Rate 132 H 130 H 114 H Pulse Rate [ From Monitor] Respiratory 16 20 Rate Blood Pressure 114/49 114/49 114/49 O2 Sat by Pulse 100 100 100 Oximetry 04/03/19 04/03/19 04/03/19 04:30 04:46 05:00 Temperature Pulse Rate 117 H 138 H 131 H Pulse Rate [ From Monitor] Respiratory 19 21 18 Rate Blood Pressure 116/43 108/38 108/38 O2 Sat by Pulse 98 98 99 Oximetry 04/03/19 04/03/19 04/03/19 05:15 05:30 05:45 Temperature Pulse Rate 133 H 125 H 113 H Pulse Rate [ From Monitor] Respiratory 19 21 20 Rate Blood Pressure 111/48 103/43 105/48 O2 Sat by Pulse 100 99 99 Oximetry 04/03/19 04/03/19 04/03/19 06:00 06:16 06:30 Temperature Pulse Rate 124 H 131 H 120 H Pulse Rate [ From Monitor] Respiratory 20 20 20 Rate Blood Pressure 107/50 95/47 118/45 O2 Sat by Pulse 99 99 99 Oximetry 04/03/19 04/03/19 04/03/19 06:46 07:00 07:15 Temperature Pulse Rate 126 H 136 H 116 H Pulse Rate [ From Monitor] Respiratory 20 20 20 Rate Blood Pressure 118/45 106/47 110/44 O2 Sat by Pulse 99 99 99 Oximetry 04/03/19 04/03/19 04/03/19 07:20 07:30 07:39 Temperature Pulse Rate 126 H 114 H 128 H Pulse Rate [ From Monitor] Respiratory 20 Rate Blood Pressure 106/47 98/50 O2 Sat by Pulse 100 Oximetry 04/03/19 04/03/19 04/03/19 07:45 07:49 08:00 Temperature 100.0 F H Pulse Rate 120 H 128 H Pulse Rate [ 117 H From Monitor] Respiratory 20 20 20 Rate Blood Pressure 108/45 95/46 O2 Sat by Pulse 99 98 99 Oximetry 04/03/19 04/03/19 04/03/19 08:15 08:30 08:46 Temperature Pulse Rate 149 H 142 H 143 H Pulse Rate [ From Monitor] Respiratory 20 20 20 Rate Blood Pressure 103/53 103/53 124/63 O2 Sat by Pulse 99 98 100 Oximetry 04/03/19 04/03/19 04/03/19 09:00 09:15 09:30 Temperature Pulse Rate 84 84 88 Pulse Rate [ From Monitor] Respiratory 20 20 20 Rate Blood Pressure 126/52 122/52 123/55 O2 Sat by Pulse 99 100 99 Oximetry 04/03/19 04/03/19 04/03/19 09:45 10:00 10:15 Temperature Pulse Rate 86 84 83 Pulse Rate [ From Monitor] Respiratory 20 20 20 Rate Blood Pressure 122/53 125/52 122/50 O2 Sat by Pulse 100 100 100 Oximetry 04/03/19 04/03/19 04/03/19 10:30 10:46 11:00 Temperature Pulse Rate 83 130 H 130 H Pulse Rate [ From Monitor] Respiratory 20 20 20 Rate Blood Pressure 115/45 114/46 99/54 O2 Sat by Pulse 100 99 99 Oximetry 04/03/19 04/03/19 04/03/19 11:16 11:30 11:45 Temperature Pulse Rate 121 H 137 H 120 H Pulse Rate [ From Monitor] Respiratory 21 20 20 Rate Blood Pressure 113/47 109/53 106/55 O2 Sat by Pulse 100 100 99 Oximetry 04/03/19 12:00 Temperature 99.8 F H Pulse Rate 136 H Pulse Rate [ 127 H From Monitor] Respiratory 15 Rate Blood Pressure 111/64 O2 Sat by Pulse 100 Oximetry - General Apperance Constitutional: acutely ill - EENT EENT: ATNC, PERRL, mucous membranes moist - Respiratory Respiratory: decreased breath sounds - Cardiovascular Cardiovascular: regular rate, normal S1, normal S2 Extremities: no clubbing, cyanosis, no inflammation - Gastrointestinal Gastrointestinal: normoactive bowel sounds, soft, non-tender - Integumentary Integumentary: normal - Laboratory Findings CBC and BMP: 04/03/19 04:25 04/03/19 08:30 Abnormal Lab Findings: Abnormal Labs 03/16/19 03/16/19 03/16/19 15:32 16:03 16:05 WBC 27.0 H RBC 5.55 H Hgb 15.7 H Hct 47.1 H RDW Plt Count 75 L Lymph % (Auto) [place] % (Auto) Lymph # Seg Neutrophils % Seg Neuts % (Manual) 85.0 H Lymphocytes % (Manual) 2.0 L Monocytes % (Manual) Nucleated RBC % Seg Neutrophils # Seg Neutrophils # Man 23.0 H Lymphocytes # (Manual) 0.5 L Monocytes # (Manual) PT INR D-Dimer Heparin Anti-Xa Level POC ABG pH ABG pH POC ABG pCO2 POC ABG pO2 ABG pO2 ABG HCO3 ABG O2 Saturation ABG Base Excess ABG Hemoglobin Oxyhemoglobin Sodium 127 L Potassium Chloride 87.8 L Carbon Dioxide 17 L BUN 49 H Creatinine 5.8 H Glucose 150 H POC Glucose 118 H Lactic Acid Calcium 6.6 L Ionized Calcium Phosphorus Magnesium 1.10 L Iron TIBC Ferritin Total Bilirubin Direct Bilirubin AST ALT Alkaline Phosphatase Total Creatine Kinase 93992 H CK-MB (CK-2) Troponin T C-Reactive Protein Total Protein Albumin Triglycerides LDL Cholesterol Direct HDL Cholesterol Free T4 PTH Intact Urine WBC (Auto) Urine Creatinine Salicylates Acetaminophen Crossmatch 03/16/19 03/16/19 03/16/19 16:59 17:05 17:05 WBC RBC Hgb Hct RDW Plt Count Lymph % (Auto) [place] % (Auto) Lymph # Seg Neutrophils % Seg Neuts % (Manual) Lymphocytes % (Manual) Monocytes % (Manual) Nucleated RBC % Seg Neutrophils # Seg Neutrophils # Man Lymphocytes # (Manual) Monocytes # (Manual) PT INR D-Dimer Heparin Anti-Xa Level POC ABG pH 7.297 L ABG pH POC ABG pCO2 33.0 L POC ABG pO2 ABG pO2 ABG HCO3 ABG O2 Saturation ABG Base Excess ABG Hemoglobin Oxyhemoglobin Sodium Potassium Chloride Carbon Dioxide BUN Creatinine Glucose POC Glucose Lactic Acid Calcium Ionized Calcium Phosphorus Magnesium Iron TIBC Ferritin Total Bilirubin Direct Bilirubin AST ALT Alkaline Phosphatase Total Creatine Kinase 65962 H CK-MB (CK-2) 83.1 H Troponin T C-Reactive Protein Total Protein Albumin Triglycerides LDL Cholesterol Direct HDL Cholesterol Free T4 0.72 L PTH Intact Urine WBC (Auto) Urine Creatinine Salicylates Acetaminophen Crossmatch 03/16/19 03/16/19 03/16/19 17:05 17:05 17:05 WBC RBC Hgb Hct RDW Plt Count Lymph % (Auto) [place] % (Auto) Lymph # Seg Neutrophils % Seg Neuts % (Manual) Lymphocytes % (Manual) Monocytes % (Manual) Nucleated RBC % Seg Neutrophils # Seg Neutrophils # Man Lymphocytes # (Manual) Monocytes # (Manual) PT INR D-Dimer Heparin Anti-Xa Level POC ABG pH ABG pH POC ABG pCO2 POC ABG pO2 ABG pO2 ABG HCO3 ABG O2 Saturation ABG Base Excess ABG Hemoglobin Oxyhemoglobin Sodium Potassium Chloride Carbon Dioxide BUN Creatinine Glucose POC Glucose Lactic Acid 5.10 H* Calcium Ionized Calcium Phosphorus Magnesium Iron TIBC Ferritin Total Bilirubin Direct Bilirubin AST ALT Alkaline Phosphatase Total Creatine Kinase CK-MB (CK-2) Troponin T C-Reactive Protein Total Protein Albumin Triglycerides LDL Cholesterol Direct HDL Cholesterol Free T4 PTH Intact Urine WBC (Auto) Urine Creatinine Salicylates < 0.3 L Acetaminophen < 5.0 L Crossmatch 03/16/19 03/16/19 03/16/19 17:05 17:05 20:35 WBC RBC Hgb Hct RDW Plt Count Lymph % (Auto) [place] % (Auto) Lymph # Seg Neutrophils % Seg Neuts % (Manual) Lymphocytes % (Manual) Monocytes % (Manual) Nucleated RBC % Seg Neutrophils # Seg Neutrophils # Man Lymphocytes # (Manual) Monocytes # (Manual) PT 15.9 H INR 1.30 H D-Dimer Heparin Anti-Xa Level POC ABG pH ABG pH POC ABG pCO2 POC ABG pO2 ABG pO2 ABG HCO3 ABG O2 Saturation ABG Base Excess ABG Hemoglobin Oxyhemoglobin Sodium Potassium Chloride Carbon Dioxide BUN Creatinine Glucose POC Glucose Lactic Acid 3.30 H* Calcium Ionized Calcium Phosphorus Magnesium Iron TIBC Ferritin Total Bilirubin 6.20 H Direct Bilirubin 5.9 H AST 800 H ALT 120 H Alkaline Phosphatase Total Creatine Kinase CK-MB (CK-2) Troponin T C-Reactive Protein Total Protein 4.4 L Albumin 2.4 L Triglycerides LDL Cholesterol Direct HDL Cholesterol Free T4 PTH Intact Urine WBC (Auto) Urine Creatinine Salicylates Acetaminophen Crossmatch 03/16/19 03/16/19 03/16/19 21:45 22:32 Unknown WBC RBC Hgb Hct RDW Plt Count Lymph % (Auto) [place] % (Auto) Lymph # Seg Neutrophils % Seg Neuts % (Manual) Lymphocytes % (Manual) Monocytes % (Manual) Nucleated RBC % Seg Neutrophils # Seg Neutrophils # Man Lymphocytes # (Manual) Monocytes # (Manual) PT INR D-Dimer Heparin Anti-Xa Level POC ABG pH ABG pH POC ABG pCO2 POC ABG pO2 ABG pO2 ABG HCO3 ABG O2 Saturation ABG Base Excess ABG Hemoglobin Oxyhemoglobin Sodium Potassium Chloride Carbon Dioxide BUN Creatinine Glucose POC Glucose Lactic Acid 3.30 H* 3.00 H* Calcium Ionized Calcium Phosphorus Magnesium Iron TIBC Ferritin Total Bilirubin Direct Bilirubin AST ALT Alkaline Phosphatase Total Creatine Kinase CK-MB (CK-2) Troponin T 0.047 H D C-Reactive Protein Total Protein Albumin Triglycerides 395 H LDL Cholesterol Direct 10 L HDL Cholesterol 7 L Free T4 PTH Intact Urine WBC (Auto) Urine Creatinine Salicylates Acetaminophen Crossmatch 03/17/19 03/17/19 03/17/19 03:45 03:45 03:45 WBC RBC Hgb Hct RDW Plt Count Lymph % (Auto) [place] % (Auto) Lymph # Seg Neutrophils % Seg Neuts % (Manual) Lymphocytes % (Manual) Monocytes % (Manual) Nucleated RBC % Seg Neutrophils # Seg Neutrophils # Man Lymphocytes # (Manual) Monocytes # (Manual) PT INR D-Dimer Heparin Anti-Xa Level POC ABG pH ABG pH POC ABG pCO2 POC ABG pO2 ABG pO2 ABG HCO3 ABG O2 Saturation ABG Base Excess ABG Hemoglobin Oxyhemoglobin Sodium 131 L Potassium Chloride 88.9 L Carbon Dioxide BUN 53 H Creatinine 7.1 H Glucose POC Glucose Lactic Acid 4.10 H* Calcium 5.4 L* D Ionized Calcium Phosphorus 7.30 H Magnesium 1.60 L Iron TIBC Ferritin Total Bilirubin 5.90 H Direct Bilirubin AST 801 H ALT 109 H Alkaline Phosphatase Total Creatine Kinase 11749 H 90370 H CK-MB (CK-2) 41.5 H Troponin T 0.054 H C-Reactive Protein Total Protein 4.5 L Albumin 2.0 L Triglycerides LDL Cholesterol Direct HDL Cholesterol Free T4 PTH Intact Urine WBC (Auto) Urine Creatinine Salicylates Acetaminophen Crossmatch 03/17/19 03/17/19 03/17/19 05:47 07:16 07:16 WBC RBC Hgb Hct RDW Plt Count Lymph % (Auto) [place] % (Auto) Lymph # Seg Neutrophils % Seg Neuts % (Manual) Lymphocytes % (Manual) Monocytes % (Manual) Nucleated RBC % Seg Neutrophils # Seg Neutrophils # Man Lymphocytes # (Manual) Monocytes # (Manual) PT INR D-Dimer Heparin Anti-Xa Level POC ABG pH 7.193 L ABG pH POC ABG pCO2 45.2 H POC ABG pO2 65 L ABG pO2 ABG HCO3 ABG O2 Saturation ABG Base Excess ABG Hemoglobin Oxyhemoglobin Sodium Potassium Chloride Carbon Dioxide BUN Creatinine Glucose POC Glucose Lactic Acid 5.50 H* Calcium Ionized Calcium Phosphorus Magnesium Iron TIBC Ferritin Total Bilirubin Direct Bilirubin AST ALT Alkaline Phosphatase Total Creatine Kinase 79908 H CK-MB (CK-2) 54.3 H Troponin T 0.058 H C-Reactive Protein Total Protein Albumin Triglycerides LDL Cholesterol Direct HDL Cholesterol Free T4 PTH Intact Urine WBC (Auto) Urine Creatinine Salicylates Acetaminophen Crossmatch 03/17/19 03/17/19 03/17/19 11:52 12:51 13:01 WBC RBC Hgb Hct RDW Plt Count Lymph % (Auto) [place] % (Auto) Lymph # Seg Neutrophils % Seg Neuts % (Manual) Lymphocytes % (Manual) Monocytes % (Manual) Nucleated RBC % Seg Neutrophils # Seg Neutrophils # Man Lymphocytes # (Manual) Monocytes # (Manual) PT INR D-Dimer Heparin Anti-Xa Level POC ABG pH 7.154 L ABG pH POC ABG pCO2 34.3 L POC ABG pO2 73 L ABG pO2 ABG HCO3 ABG O2 Saturation ABG Base Excess ABG Hemoglobin Oxyhemoglobin Sodium Potassium Chloride Carbon Dioxide BUN Creatinine Glucose POC Glucose 60 L Lactic Acid 8.20 H* Calcium Ionized Calcium Phosphorus Magnesium Iron TIBC Ferritin Total Bilirubin Direct Bilirubin AST ALT Alkaline Phosphatase Total Creatine Kinase CK-MB (CK-2) Troponin T C-Reactive Protein Total Protein Albumin Triglycerides LDL Cholesterol Direct HDL Cholesterol Free T4 PTH Intact Urine WBC (Auto) Urine Creatinine Salicylates Acetaminophen Crossmatch 03/17/19 03/17/19 03/17/19 14:37 14:37 14:37 WBC 29.3 H RBC Hgb Hct RDW 15.8 H Plt Count 45 L Lymph % (Auto) [place] % (Auto) Lymph # Seg Neutrophils % Seg Neuts % (Manual) 81.0 H Lymphocytes % (Manual) 1.0 L Monocytes % (Manual) 15.0 H Nucleated RBC % Seg Neutrophils # Seg Neutrophils # Man 23.7 H Lymphocytes # (Manual) 0.3 L Monocytes # (Manual) 4.4 H PT INR D-Dimer Heparin Anti-Xa Level POC ABG pH ABG pH POC ABG pCO2 POC ABG pO2 ABG pO2 ABG HCO3 ABG O2 Saturation ABG Base Excess ABG Hemoglobin Oxyhemoglobin Sodium Potassium Chloride Carbon Dioxide BUN Creatinine Glucose POC Glucose Lactic Acid 4.90 H* Calcium Ionized Calcium Phosphorus Magnesium Iron TIBC Ferritin Total Bilirubin Direct Bilirubin AST ALT Alkaline Phosphatase Total Creatine Kinase CK-MB (CK-2) Troponin T C-Reactive Protein 24.90 H Total Protein Albumin Triglycerides LDL Cholesterol Direct HDL Cholesterol Free T4 PTH Intact Urine WBC (Auto) Urine Creatinine Salicylates Acetaminophen Crossmatch 03/17/19 03/17/19 03/17/19 16:05 16:05 17:02 WBC RBC Hgb Hct RDW Plt Count Lymph % (Auto) [place] % (Auto) Lymph # Seg Neutrophils % Seg Neuts % (Manual) Lymphocytes % (Manual) Monocytes % (Manual) Nucleated RBC % Seg Neutrophils # Seg Neutrophils # Man Lymphocytes # (Manual) Monocytes # (Manual) PT INR D-Dimer Heparin Anti-Xa Level POC ABG pH 7.183 L ABG pH POC ABG pCO2 POC ABG pO2 65 L ABG pO2 ABG HCO3 ABG O2 Saturation ABG Base Excess ABG Hemoglobin Oxyhemoglobin Sodium Potassium Chloride Carbon Dioxide BUN Creatinine Glucose POC Glucose Lactic Acid Calcium Ionized Calcium Phosphorus Magnesium Iron TIBC Ferritin Total Bilirubin Direct Bilirubin AST ALT Alkaline Phosphatase Total Creatine Kinase CK-MB (CK-2) Troponin T C-Reactive Protein Total Protein Albumin Triglycerides LDL Cholesterol Direct HDL Cholesterol Free T4 PTH Intact Urine WBC (Auto) 30.0 H Urine Creatinine 106.6 H Salicylates Acetaminophen Crossmatch 03/18/19 03/18/19 03/18/19 05:12 05:16 05:53 WBC RBC Hgb Hct RDW Plt Count Lymph % (Auto) [place] % (Auto) Lymph # Seg Neutrophils % Seg Neuts % (Manual) Lymphocytes % (Manual) Monocytes % (Manual) Nucleated RBC % Seg Neutrophils # Seg Neutrophils # Man Lymphocytes # (Manual) Monocytes # (Manual) PT INR D-Dimer Heparin Anti-Xa Level POC ABG pH 7.257 L ABG pH POC ABG pCO2 31.6 L POC ABG pO2 69 L ABG pO2 ABG HCO3 ABG O2 Saturation ABG Base Excess ABG Hemoglobin Oxyhemoglobin Sodium Potassium Chloride Carbon Dioxide BUN Creatinine Glucose POC Glucose 141 H Lactic Acid 5.00 H* Calcium Ionized Calcium Phosphorus Magnesium Iron TIBC Ferritin Total Bilirubin Direct Bilirubin AST ALT Alkaline Phosphatase Total Creatine Kinase CK-MB (CK-2) Troponin T C-Reactive Protein Total Protein Albumin Triglycerides LDL Cholesterol Direct HDL Cholesterol Free T4 PTH Intact Urine WBC (Auto) Urine Creatinine Salicylates Acetaminophen Crossmatch 03/18/19 03/18/19 03/18/19 06:57 08:40 08:40 WBC 31.7 H RBC Hgb Hct RDW 15.5 H Plt Count 35 L Lymph % (Auto) [place] % (Auto) Lymph # Seg Neutrophils % Seg Neuts % (Manual) Lymphocytes % (Manual) Monocytes % (Manual) Nucleated RBC % Seg Neutrophils # Seg Neutrophils # Man Lymphocytes # (Manual) Monocytes # (Manual) PT INR D-Dimer Heparin Anti-Xa Level POC ABG pH ABG pH POC ABG pCO2 POC ABG pO2 ABG pO2 ABG HCO3 ABG O2 Saturation ABG Base Excess ABG Hemoglobin Oxyhemoglobin Sodium 132 L Potassium 5.5 H D Chloride 88.5 L Carbon Dioxide 18 L BUN 71 H Creatinine 8.1 H Glucose 205 H POC Glucose Lactic Acid 5.00 H* Calcium 4.1 L* D Ionized Calcium Phosphorus Magnesium 2.40 H Iron TIBC Ferritin Total Bilirubin 7.50 H Direct Bilirubin AST 1088 H ALT 159 H Alkaline Phosphatase 190 H Total Creatine Kinase 985854 H CK-MB (CK-2) Troponin T C-Reactive Protein Total Protein 4.7 L Albumin 1.8 L Triglycerides LDL Cholesterol Direct HDL Cholesterol Free T4 PTH Intact Urine WBC (Auto) Urine Creatinine Salicylates Acetaminophen Crossmatch 03/18/19 03/18/19 03/18/19 12:33 12:50 13:19 WBC RBC Hgb Hct RDW Plt Count Lymph % (Auto) [place] % (Auto) Lymph # Seg Neutrophils % Seg Neuts % (Manual) Lymphocytes % (Manual) Monocytes % (Manual) Nucleated RBC % Seg Neutrophils # Seg Neutrophils # Man Lymphocytes # (Manual) Monocytes # (Manual) PT INR D-Dimer Heparin Anti-Xa Level POC ABG pH 7.282 L ABG pH POC ABG pCO2 POC ABG pO2 67 L ABG pO2 ABG HCO3 ABG O2 Saturation ABG Base Excess ABG Hemoglobin Oxyhemoglobin Sodium Potassium Chloride Carbon Dioxide BUN Creatinine Glucose POC Glucose 129 H Lactic Acid 3.30 H* Calcium Ionized Calcium Phosphorus Magnesium Iron TIBC Ferritin Total Bilirubin Direct Bilirubin AST ALT Alkaline Phosphatase Total Creatine Kinase CK-MB (CK-2) Troponin T C-Reactive Protein Total Protein Albumin Triglycerides LDL Cholesterol Direct HDL Cholesterol Free T4 PTH Intact Urine WBC (Auto) Urine Creatinine Salicylates Acetaminophen Crossmatch 03/18/19 03/18/19 03/18/19 13:19 16:50 18:11 WBC RBC Hgb Hct RDW Plt Count Lymph % (Auto) [place] % (Auto) Lymph # Seg Neutrophils % Seg Neuts % (Manual) Lymphocytes % (Manual) Monocytes % (Manual) Nucleated RBC % Seg Neutrophils # Seg Neutrophils # Man Lymphocytes # (Manual) Monocytes # (Manual) PT INR D-Dimer Heparin Anti-Xa Level POC ABG pH ABG pH POC ABG pCO2 POC ABG pO2 59 L ABG pO2 ABG HCO3 ABG O2 Saturation ABG Base Excess ABG Hemoglobin Oxyhemoglobin Sodium Potassium Chloride Carbon Dioxide BUN Creatinine Glucose POC Glucose 151 H Lactic Acid Calcium 4.2 L* Ionized Calcium Phosphorus Magnesium Iron TIBC Ferritin Total Bilirubin Direct Bilirubin AST ALT Alkaline Phosphatase Total Creatine Kinase 601688 H CK-MB (CK-2) Troponin T C-Reactive Protein Total Protein Albumin Triglycerides LDL Cholesterol Direct HDL Cholesterol Free T4 PTH Intact Urine WBC (Auto) Urine Creatinine Salicylates Acetaminophen Crossmatch 03/18/19 03/18/19 03/19/19 18:20 23:39 01:42 WBC RBC Hgb Hct RDW Plt Count Lymph % (Auto) [place] % (Auto) Lymph # Seg Neutrophils % Seg Neuts % (Manual) Lymphocytes % (Manual) Monocytes % (Manual) Nucleated RBC % Seg Neutrophils # Seg Neutrophils # Man Lymphocytes # (Manual) Monocytes # (Manual) PT INR D-Dimer Heparin Anti-Xa Level POC ABG pH 7.345 L ABG pH 7.285 L POC ABG pCO2 POC ABG pO2 59 L ABG pO2 44.0 L ABG HCO3 ABG O2 Saturation 70.9 L ABG Base Excess -5.7 L ABG Hemoglobin 11.9 L Oxyhemoglobin 69.6 L Sodium Potassium Chloride Carbon Dioxide BUN Creatinine Glucose POC Glucose 152 H Lactic Acid Calcium Ionized Calcium Phosphorus Magnesium Iron TIBC Ferritin Total Bilirubin Direct Bilirubin AST ALT Alkaline Phosphatase Total Creatine Kinase CK-MB (CK-2) Troponin T C-Reactive Protein Total Protein Albumin Triglycerides LDL Cholesterol Direct HDL Cholesterol Free T4 PTH Intact Urine WBC (Auto) Urine Creatinine Salicylates Acetaminophen Crossmatch 03/19/19 03/19/19 03/19/19 04:00 04:00 05:35 WBC 36.5 H RBC Hgb Hct RDW 15.8 H Plt Count 35 L Lymph % (Auto) [place] % (Auto) Lymph # Seg Neutrophils % Seg Neuts % (Manual) Lymphocytes % (Manual) Monocytes % (Manual) Nucleated RBC % Seg Neutrophils # Seg Neutrophils # Man Lymphocytes # (Manual) Monocytes # (Manual) PT INR D-Dimer Heparin Anti-Xa Level POC ABG pH ABG pH 7.265 L POC ABG pCO2 POC ABG pO2 ABG pO2 35.4 L* ABG HCO3 ABG O2 Saturation 54.4 L ABG Base Excess -6.7 L ABG Hemoglobin 12.9 L Oxyhemoglobin 53.4 L Sodium 132 L Potassium 5.7 H Chloride 89.8 L Carbon Dioxide 19 L BUN 62 H Creatinine 6.4 H Glucose 151 H POC Glucose Lactic Acid Calcium 5.2 L* D Ionized Calcium Phosphorus Magnesium Iron TIBC Ferritin Total Bilirubin 7.80 H Direct Bilirubin AST 682 H ALT 130 H Alkaline Phosphatase 167 H Total Creatine Kinase CK-MB (CK-2) Troponin T C-Reactive Protein Total Protein 4.8 L Albumin 2.3 L Triglycerides LDL Cholesterol Direct HDL Cholesterol Free T4 PTH Intact Urine WBC (Auto) Urine Creatinine Salicylates Acetaminophen Crossmatch 03/19/19 03/19/19 03/19/19 05:49 09:16 09:50 WBC RBC Hgb Hct RDW Plt Count Lymph % (Auto) [place] % (Auto) Lymph # Seg Neutrophils % Seg Neuts % (Manual) Lymphocytes % (Manual) Monocytes % (Manual) Nucleated RBC % Seg Neutrophils # Seg Neutrophils # Man Lymphocytes # (Manual) Monocytes # (Manual) PT INR D-Dimer Heparin Anti-Xa Level POC ABG pH 7.222 L ABG pH POC ABG pCO2 56.6 H POC ABG pO2 ABG pO2 ABG HCO3 ABG O2 Saturation ABG Base Excess ABG Hemoglobin Oxyhemoglobin Sodium Potassium Chloride Carbon Dioxide BUN Creatinine Glucose POC Glucose 154 H Lactic Acid 2.70 H* Calcium Ionized Calcium Phosphorus Magnesium Iron TIBC Ferritin Total Bilirubin Direct Bilirubin AST ALT Alkaline Phosphatase Total Creatine Kinase CK-MB (CK-2) Troponin T C-Reactive Protein Total Protein Albumin Triglycerides LDL Cholesterol Direct HDL Cholesterol Free T4 PTH Intact Urine WBC (Auto) Urine Creatinine Salicylates Acetaminophen Crossmatch 03/19/19 03/19/19 03/19/19 09:50 11:28 17:58 WBC RBC Hgb Hct RDW Plt Count Lymph % (Auto) [place] % (Auto) Lymph # Seg Neutrophils % Seg Neuts % (Manual) Lymphocytes % (Manual) Monocytes % (Manual) Nucleated RBC % Seg Neutrophils # Seg Neutrophils # Man Lymphocytes # (Manual) Monocytes # (Manual) PT INR D-Dimer Heparin Anti-Xa Level POC ABG pH 7.250 L ABG pH POC ABG pCO2 52.6 H POC ABG pO2 ABG pO2 ABG HCO3 ABG O2 Saturation ABG Base Excess ABG Hemoglobin Oxyhemoglobin Sodium Potassium Chloride Carbon Dioxide BUN Creatinine Glucose POC Glucose 160 H Lactic Acid Calcium Ionized Calcium Phosphorus Magnesium Iron TIBC Ferritin Total Bilirubin Direct Bilirubin AST ALT Alkaline Phosphatase Total Creatine Kinase 21813 H CK-MB (CK-2) Troponin T C-Reactive Protein Total Protein Albumin Triglycerides LDL Cholesterol Direct HDL Cholesterol Free T4 PTH Intact Urine WBC (Auto) Urine Creatinine Salicylates Acetaminophen Crossmatch 03/19/19 03/19/19 03/20/19 19:48 21:03 02:16 WBC RBC Hgb Hct RDW Plt Count Lymph % (Auto) [place] % (Auto) Lymph # Seg Neutrophils % Seg Neuts % (Manual) Lymphocytes % (Manual) Monocytes % (Manual) Nucleated RBC % Seg Neutrophils # Seg Neutrophils # Man Lymphocytes # (Manual) Monocytes # (Manual) PT INR D-Dimer Heparin Anti-Xa Level POC ABG pH 7.279 L ABG pH POC ABG pCO2 50.3 H POC ABG pO2 129 H ABG pO2 ABG HCO3 ABG O2 Saturation ABG Base Excess ABG Hemoglobin Oxyhemoglobin Sodium Potassium Chloride Carbon Dioxide BUN Creatinine Glucose POC Glucose 119 H 119 H Lactic Acid Calcium Ionized Calcium Phosphorus Magnesium Iron TIBC Ferritin Total Bilirubin Direct Bilirubin AST ALT Alkaline Phosphatase Total Creatine Kinase CK-MB (CK-2) Troponin T C-Reactive Protein Total Protein Albumin Triglycerides LDL Cholesterol Direct HDL Cholesterol Free T4 PTH Intact Urine WBC (Auto) Urine Creatinine Salicylates Acetaminophen Crossmatch 03/20/19 03/20/19 03/20/19 04:23 05:05 09:30 WBC 36.3 H RBC Hgb Hct RDW 15.5 H Plt Count 29 L Lymph % (Auto) [place] % (Auto) Lymph # Seg Neutrophils % Seg Neuts % (Manual) Lymphocytes % (Manual) Monocytes % (Manual) Nucleated RBC % Seg Neutrophils # Seg Neutrophils # Man Lymphocytes # (Manual) Monocytes # (Manual) PT INR D-Dimer Heparin Anti-Xa Level POC ABG pH ABG pH POC ABG pCO2 POC ABG pO2 280 H ABG pO2 ABG HCO3 ABG O2 Saturation ABG Base Excess ABG Hemoglobin Oxyhemoglobin Sodium Potassium Chloride Carbon Dioxide BUN Creatinine Glucose POC Glucose 115 H Lactic Acid Calcium Ionized Calcium Phosphorus Magnesium Iron TIBC Ferritin Total Bilirubin Direct Bilirubin AST ALT Alkaline Phosphatase Total Creatine Kinase CK-MB (CK-2) Troponin T C-Reactive Protein Total Protein Albumin Triglycerides LDL Cholesterol Direct HDL Cholesterol Free T4 PTH Intact Urine WBC (Auto) Urine Creatinine Salicylates Acetaminophen Crossmatch 03/20/19 03/20/19 03/20/19 09:30 09:30 11:34 WBC RBC Hgb Hct RDW Plt Count Lymph % (Auto) [place] % (Auto) Lymph # Seg Neutrophils % Seg Neuts % (Manual) Lymphocytes % (Manual) Monocytes % (Manual) Nucleated RBC % Seg Neutrophils # Seg Neutrophils # Man Lymphocytes # (Manual) Monocytes # (Manual) PT INR D-Dimer Heparin Anti-Xa Level POC ABG pH ABG pH POC ABG pCO2 POC ABG pO2 ABG pO2 ABG HCO3 ABG O2 Saturation ABG Base Excess ABG Hemoglobin Oxyhemoglobin Sodium 131 L Potassium Chloride 92.3 L Carbon Dioxide 20 L BUN 68 H Creatinine 6.1 H Glucose 164 H POC Glucose 141 H Lactic Acid Calcium 5.3 L* Ionized Calcium Phosphorus Magnesium Iron TIBC Ferritin Total Bilirubin 9.50 H Direct Bilirubin AST 381 H ALT 116 H Alkaline Phosphatase 255 H Total Creatine Kinase 83152 H CK-MB (CK-2) Troponin T C-Reactive Protein Total Protein 5.1 L Albumin 2.3 L Triglycerides LDL Cholesterol Direct HDL Cholesterol Free T4 PTH Intact Urine WBC (Auto) Urine Creatinine Salicylates Acetaminophen Crossmatch 03/20/19 03/20/19 03/20/19 14:41 14:45 18:50 WBC RBC Hgb Hct RDW Plt Count Lymph % (Auto) [place] % (Auto) Lymph # Seg Neutrophils % Seg Neuts % (Manual) Lymphocytes % (Manual) Monocytes % (Manual) Nucleated RBC % Seg Neutrophils # Seg Neutrophils # Man Lymphocytes # (Manual) Monocytes # (Manual) PT INR D-Dimer Heparin Anti-Xa Level POC ABG pH ABG pH POC ABG pCO2 POC ABG pO2 ABG pO2 ABG HCO3 ABG O2 Saturation ABG Base Excess ABG Hemoglobin Oxyhemoglobin Sodium Potassium Chloride Carbon Dioxide BUN Creatinine Glucose POC Glucose 117 H Lactic Acid 2.90 H* Calcium Ionized Calcium Phosphorus Magnesium Iron TIBC Ferritin Total Bilirubin Direct Bilirubin AST ALT Alkaline Phosphatase Total Creatine Kinase CK-MB (CK-2) Troponin T C-Reactive Protein 13.30 H Total Protein Albumin Triglycerides LDL Cholesterol Direct HDL Cholesterol Free T4 PTH Intact Urine WBC (Auto) Urine Creatinine Salicylates Acetaminophen Crossmatch 03/20/19 03/21/19 03/21/19 21:55 04:26 04:26 WBC 37.8 H RBC Hgb Hct RDW 15.4 H Plt Count 36 L Lymph % (Auto) [place] % (Auto) Lymph # Seg Neutrophils % Seg Neuts % (Manual) 93.0 H Lymphocytes % (Manual) 3.0 L Monocytes % (Manual) Nucleated RBC % 1.0 H Seg Neutrophils # 34.6 H Seg Neutrophils # Man 35.2 H Lymphocytes # (Manual) 1.1 L Monocytes # (Manual) PT INR D-Dimer Heparin Anti-Xa Level POC ABG pH ABG pH POC ABG pCO2 POC ABG pO2 ABG pO2 ABG HCO3 ABG O2 Saturation ABG Base Excess ABG Hemoglobin Oxyhemoglobin Sodium 131 L Potassium Chloride 90.7 L Carbon Dioxide 21 L BUN 69 H Creatinine 5.7 H Glucose 170 H POC Glucose 128 H Lactic Acid Calcium 6.1 L D Ionized Calcium Phosphorus Magnesium Iron TIBC Ferritin Total Bilirubin 9.50 H Direct Bilirubin AST 308 H ALT 124 H Alkaline Phosphatase 327 H Total Creatine Kinase 04546 H CK-MB (CK-2) Troponin T C-Reactive Protein Total Protein 5.7 L Albumin 2.6 L Triglycerides LDL Cholesterol Direct HDL Cholesterol Free T4 PTH Intact Urine WBC (Auto) Urine Creatinine Salicylates Acetaminophen Crossmatch 03/21/19 03/21/19 03/21/19 05:17 05:39 08:29 WBC RBC Hgb Hct RDW Plt Count Lymph % (Auto) [place] % (Auto) Lymph # Seg Neutrophils % Seg Neuts % (Manual) Lymphocytes % (Manual) Monocytes % (Manual) Nucleated RBC % Seg Neutrophils # Seg Neutrophils # Man Lymphocytes # (Manual) Monocytes # (Manual) PT INR D-Dimer Heparin Anti-Xa Level POC ABG pH ABG pH POC ABG pCO2 POC ABG pO2 209 H ABG pO2 ABG HCO3 ABG O2 Saturation ABG Base Excess ABG Hemoglobin Oxyhemoglobin Sodium Potassium Chloride Carbon Dioxide BUN Creatinine Glucose POC Glucose 145 H Lactic Acid Calcium Ionized Calcium Phosphorus Magnesium Iron TIBC Ferritin Total Bilirubin Direct Bilirubin AST ALT Alkaline Phosphatase Total Creatine Kinase 13187 H CK-MB (CK-2) Troponin T C-Reactive Protein Total Protein Albumin Triglycerides LDL Cholesterol Direct HDL Cholesterol Free T4 PTH Intact Urine WBC (Auto) Urine Creatinine Salicylates Acetaminophen Crossmatch 03/21/19 03/21/19 03/21/19 08:29 11:43 12:00 WBC RBC Hgb Hct RDW Plt Count Lymph % (Auto) [place] % (Auto) Lymph # Seg Neutrophils % Seg Neuts % (Manual) Lymphocytes % (Manual) Monocytes % (Manual) Nucleated RBC % Seg Neutrophils # Seg Neutrophils # Man Lymphocytes # (Manual) Monocytes # (Manual) PT INR D-Dimer Heparin Anti-Xa Level POC ABG pH ABG pH POC ABG pCO2 POC ABG pO2 ABG pO2 ABG HCO3 ABG O2 Saturation ABG Base Excess ABG Hemoglobin Oxyhemoglobin Sodium Potassium Chloride Carbon Dioxide BUN Creatinine Glucose POC Glucose 123 H Lactic Acid 2.60 H* 2.20 H* Calcium Ionized Calcium Phosphorus Magnesium Iron TIBC Ferritin Total Bilirubin Direct Bilirubin AST ALT Alkaline Phosphatase Total Creatine Kinase CK-MB (CK-2) Troponin T C-Reactive Protein Total Protein Albumin Triglycerides LDL Cholesterol Direct HDL Cholesterol Free T4 PTH Intact Urine WBC (Auto) Urine Creatinine Salicylates Acetaminophen Crossmatch 03/21/19 03/21/19 03/21/19 14:11 18:28 19:32 WBC RBC Hgb Hct RDW Plt Count Lymph % (Auto) [place] % (Auto) Lymph # Seg Neutrophils % Seg Neuts % (Manual) Lymphocytes % (Manual) Monocytes % (Manual) Nucleated RBC % Seg Neutrophils # Seg Neutrophils # Man Lymphocytes # (Manual) Monocytes # (Manual) PT INR D-Dimer Heparin Anti-Xa Level POC ABG pH 7.293 L ABG pH POC ABG pCO2 POC ABG pO2 ABG pO2 ABG HCO3 ABG O2 Saturation ABG Base Excess ABG Hemoglobin Oxyhemoglobin Sodium Potassium Chloride Carbon Dioxide BUN Creatinine Glucose POC Glucose 153 H Lactic Acid 2.10 H* Calcium Ionized Calcium Phosphorus Magnesium Iron TIBC Ferritin Total Bilirubin Direct Bilirubin AST ALT Alkaline Phosphatase Total Creatine Kinase CK-MB (CK-2) Troponin T C-Reactive Protein Total Protein Albumin Triglycerides LDL Cholesterol Direct HDL Cholesterol Free T4 PTH Intact Urine WBC (Auto) Urine Creatinine Salicylates Acetaminophen Crossmatch 03/21/19 03/22/19 03/22/19 23:38 05:08 05:51 WBC RBC Hgb Hct RDW Plt Count Lymph % (Auto) [place] % (Auto) Lymph # Seg Neutrophils % Seg Neuts % (Manual) Lymphocytes % (Manual) Monocytes % (Manual) Nucleated RBC % Seg Neutrophils # Seg Neutrophils # Man Lymphocytes # (Manual) Monocytes # (Manual) PT INR D-Dimer Heparin Anti-Xa Level POC ABG pH 7.283 L ABG pH POC ABG pCO2 POC ABG pO2 53 L ABG pO2 ABG HCO3 ABG O2 Saturation ABG Base Excess ABG Hemoglobin Oxyhemoglobin Sodium Potassium Chloride Carbon Dioxide BUN Creatinine Glucose POC Glucose 149 H 131 H Lactic Acid Calcium Ionized Calcium Phosphorus Magnesium Iron TIBC Ferritin Total Bilirubin Direct Bilirubin AST ALT Alkaline Phosphatase Total Creatine Kinase CK-MB (CK-2) Troponin T C-Reactive Protein Total Protein Albumin Triglycerides LDL Cholesterol Direct HDL Cholesterol Free T4 PTH Intact Urine WBC (Auto) Urine Creatinine Salicylates Acetaminophen Crossmatch 03/22/19 03/22/19 03/22/19 08:00 08:00 18:19 WBC 36.7 H RBC Hgb 11.0 L Hct 33.5 L RDW 15.5 H Plt Count 43 L Lymph % (Auto) [place] % (Auto) Lymph # Seg Neutrophils % Seg Neuts % (Manual) 87.0 H Lymphocytes % (Manual) 7.0 L Monocytes % (Manual) Nucleated RBC % Seg Neutrophils # Seg Neutrophils # Man 31.9 H Lymphocytes # (Manual) Monocytes # (Manual) PT INR D-Dimer Heparin Anti-Xa Level POC ABG pH ABG pH POC ABG pCO2 46.4 H POC ABG pO2 108 H ABG pO2 ABG HCO3 ABG O2 Saturation ABG Base Excess ABG Hemoglobin Oxyhemoglobin Sodium 132 L Potassium 5.6 H Chloride 89.6 L Carbon Dioxide 20 L BUN 101 H Creatinine 7.4 H Glucose 124 H POC Glucose Lactic Acid Calcium 5.2 L* Ionized Calcium Phosphorus Magnesium Iron TIBC Ferritin Total Bilirubin 2.80 H Direct Bilirubin AST 119 H ALT 86 H Alkaline Phosphatase 245 H Total Creatine Kinase CK-MB (CK-2) Troponin T C-Reactive Protein Total Protein 5.6 L Albumin 2.5 L Triglycerides LDL Cholesterol Direct HDL Cholesterol Free T4 PTH Intact Urine WBC (Auto) Urine Creatinine Salicylates Acetaminophen Crossmatch 03/22/19 03/23/19 03/23/19 20:37 04:49 05:28 WBC 35.9 H RBC Hgb 10.8 L Hct 33.2 L RDW 15.5 H Plt Count 49 L Lymph % (Auto) [place] % (Auto) Lymph # Seg Neutrophils % Seg Neuts % (Manual) 81.0 H Lymphocytes % (Manual) 3.5 L Monocytes % (Manual) Nucleated RBC % Seg Neutrophils # Seg Neutrophils # Man 29.1 H Lymphocytes # (Manual) Monocytes # (Manual) 1.4 H PT INR D-Dimer Heparin Anti-Xa Level POC ABG pH 7.296 L ABG pH POC ABG pCO2 46.2 H POC ABG pO2 ABG pO2 ABG HCO3 ABG O2 Saturation ABG Base Excess ABG Hemoglobin Oxyhemoglobin Sodium 129 L Potassium 5.2 H Chloride 91.1 L Carbon Dioxide BUN 91 H Creatinine 6.6 H Glucose 190 H POC Glucose Lactic Acid Calcium 5.3 L* Ionized Calcium Phosphorus Magnesium Iron TIBC Ferritin Total Bilirubin 1.80 H Direct Bilirubin AST 80 H ALT 62 H Alkaline Phosphatase 209 H Total Creatine Kinase 9758 H CK-MB (CK-2) Troponin T C-Reactive Protein Total Protein 5.2 L Albumin 2.2 L Triglycerides LDL Cholesterol Direct HDL Cholesterol Free T4 PTH Intact Urine WBC (Auto) Urine Creatinine Salicylates Acetaminophen Crossmatch 03/23/19 03/23/19 03/23/19 05:28 05:31 11:33 WBC 29.7 H RBC 3.59 L Hgb 10.1 L Hct 31.1 L RDW 15.4 H Plt Count 47 L Lymph % (Auto) [place] % (Auto) Lymph # Seg Neutrophils % Seg Neuts % (Manual) 89.0 H Lymphocytes % (Manual) 6.0 L Monocytes % (Manual) Nucleated RBC % 1.0 H Seg Neutrophils # Seg Neutrophils # Man 26.4 H Lymphocytes # (Manual) Monocytes # (Manual) PT INR D-Dimer Heparin Anti-Xa Level POC ABG pH ABG pH POC ABG pCO2 POC ABG pO2 ABG pO2 ABG HCO3 ABG O2 Saturation ABG Base Excess ABG Hemoglobin Oxyhemoglobin Sodium Potassium Chloride Carbon Dioxide BUN Creatinine Glucose POC Glucose 122 H 113 H Lactic Acid Calcium Ionized Calcium Phosphorus Magnesium Iron TIBC Ferritin Total Bilirubin Direct Bilirubin AST ALT Alkaline Phosphatase Total Creatine Kinase CK-MB (CK-2) Troponin T C-Reactive Protein Total Protein Albumin Triglycerides LDL Cholesterol Direct HDL Cholesterol Free T4 PTH Intact Urine WBC (Auto) Urine Creatinine Salicylates Acetaminophen Crossmatch 03/23/19 03/24/19 03/24/19 17:47 00:00 04:50 WBC 35.0 H RBC Hgb 10.4 L Hct 32.4 L RDW Plt Count 60 L Lymph % (Auto) [place] % (Auto) Lymph # Seg Neutrophils % Seg Neuts % (Manual) 93.0 H Lymphocytes % (Manual) 5.0 L Monocytes % (Manual) Nucleated RBC % 7.0 H Seg Neutrophils # Seg Neutrophils # Man 32.6 H Lymphocytes # (Manual) Monocytes # (Manual) PT INR D-Dimer Heparin Anti-Xa Level POC ABG pH ABG pH POC ABG pCO2 POC ABG pO2 ABG pO2 ABG HCO3 ABG O2 Saturation ABG Base Excess ABG Hemoglobin Oxyhemoglobin Sodium Potassium Chloride Carbon Dioxide BUN Creatinine Glucose POC Glucose 111 H 108 H Lactic Acid Calcium Ionized Calcium Phosphorus Magnesium Iron TIBC Ferritin Total Bilirubin Direct Bilirubin AST ALT Alkaline Phosphatase Total Creatine Kinase CK-MB (CK-2) Troponin T C-Reactive Protein Total Protein Albumin Triglycerides LDL Cholesterol Direct HDL Cholesterol Free T4 PTH Intact Urine WBC (Auto) Urine Creatinine Salicylates Acetaminophen Crossmatch 03/24/19 03/24/19 03/24/19 04:50 05:06 12:55 WBC RBC Hgb Hct RDW Plt Count Lymph % (Auto) [place] % (Auto) Lymph # Seg Neutrophils % Seg Neuts % (Manual) Lymphocytes % (Manual) Monocytes % (Manual) Nucleated RBC % Seg Neutrophils # Seg Neutrophils # Man Lymphocytes # (Manual) Monocytes # (Manual) PT INR D-Dimer Heparin Anti-Xa Level POC ABG pH ABG pH POC ABG pCO2 POC ABG pO2 ABG pO2 ABG HCO3 ABG O2 Saturation ABG Base Excess ABG Hemoglobin Oxyhemoglobin Sodium 134 L Potassium 5.1 H Chloride 95.3 L Carbon Dioxide 21 L BUN 85 H Creatinine 6.4 H Glucose 109 H POC Glucose 112 H 110 H Lactic Acid Calcium 5.8 L* Ionized Calcium Phosphorus Magnesium Iron TIBC Ferritin Total Bilirubin Direct Bilirubin AST ALT Alkaline Phosphatase Total Creatine Kinase 5747 H CK-MB (CK-2) Troponin T C-Reactive Protein Total Protein Albumin Triglycerides LDL Cholesterol Direct HDL Cholesterol Free T4 PTH Intact Urine WBC (Auto) Urine Creatinine Salicylates Acetaminophen Crossmatch 03/24/19 03/25/19 03/25/19 23:29 05:00 05:00 WBC RBC Hgb Hct RDW Plt Count Lymph % (Auto) [place] % (Auto) Lymph # Seg Neutrophils % Seg Neuts % (Manual) Lymphocytes % (Manual) Monocytes % (Manual) Nucleated RBC % Seg Neutrophils # Seg Neutrophils # Man Lymphocytes # (Manual) Monocytes # (Manual) PT INR D-Dimer Heparin Anti-Xa Level POC ABG pH ABG pH POC ABG pCO2 POC ABG pO2 ABG pO2 ABG HCO3 ABG O2 Saturation ABG Base Excess ABG Hemoglobin Oxyhemoglobin Sodium 133 L Potassium Chloride 94.0 L Carbon Dioxide 21 L BUN 81 H Creatinine 6.4 H Glucose POC Glucose 109 H Lactic Acid Calcium 5.5 L* Ionized Calcium Phosphorus Magnesium Iron TIBC Ferritin Total Bilirubin Direct Bilirubin AST 80 H ALT Alkaline Phosphatase 202 H Total Creatine Kinase 3589 H CK-MB (CK-2) Troponin T C-Reactive Protein Total Protein 5.3 L Albumin 2.4 L Triglycerides LDL Cholesterol Direct HDL Cholesterol Free T4 PTH Intact 329.9 H Urine WBC (Auto) Urine Creatinine Salicylates Acetaminophen Crossmatch 03/25/19 03/25/19 03/26/19 05:00 06:30 04:30 WBC 23.3 H RBC 3.61 L Hgb 10.2 L Hct 31.2 L RDW Plt Count 57 L Lymph % (Auto) [place] % (Auto) Lymph # Seg Neutrophils % Seg Neuts % (Manual) 92.0 H Lymphocytes % (Manual) 6.0 L Monocytes % (Manual) Nucleated RBC % Seg Neutrophils # Seg Neutrophils # Man 21.4 H Lymphocytes # (Manual) Monocytes # (Manual) PT INR D-Dimer Heparin Anti-Xa Level POC ABG pH ABG pH 7.326 L POC ABG pCO2 POC ABG pO2 ABG pO2 109.5 H 137.4 H ABG HCO3 18.8 L 18.6 L ABG O2 Saturation ABG Base Excess -4.4 L -6.8 L ABG Hemoglobin 10.1 L 9.9 L Oxyhemoglobin Sodium Potassium Chloride Carbon Dioxide BUN Creatinine Glucose POC Glucose Lactic Acid Calcium Ionized Calcium Phosphorus Magnesium Iron TIBC Ferritin Total Bilirubin Direct Bilirubin AST ALT Alkaline Phosphatase Total Creatine Kinase CK-MB (CK-2) Troponin T C-Reactive Protein Total Protein Albumin Triglycerides LDL Cholesterol Direct HDL Cholesterol Free T4 PTH Intact Urine WBC (Auto) Urine Creatinine Salicylates Acetaminophen Crossmatch 03/26/19 03/26/19 03/26/19 23:22 Unknown Unknown WBC 19.5 H RBC 3.44 L Hgb 9.8 L Hct 29.9 L RDW Plt Count 85 L Lymph % (Auto) [place] % (Auto) Lymph # Seg Neutrophils % Seg Neuts % (Manual) 95.0 H Lymphocytes % (Manual) 3.0 L Monocytes % (Manual) Nucleated RBC % Seg Neutrophils # Seg Neutrophils # Man 18.5 H Lymphocytes # (Manual) 0.6 L Monocytes # (Manual) PT INR D-Dimer Heparin Anti-Xa Level POC ABG pH ABG pH POC ABG pCO2 POC ABG pO2 ABG pO2 ABG HCO3 ABG O2 Saturation ABG Base Excess ABG Hemoglobin Oxyhemoglobin Sodium 135 L Potassium 5.2 H D Chloride 92.2 L Carbon Dioxide 18 L BUN 109 H Creatinine 8.5 H Glucose 117 H POC Glucose 69 L Lactic Acid Calcium 4.5 L* D Ionized Calcium Phosphorus Magnesium Iron TIBC Ferritin Total Bilirubin Direct Bilirubin AST ALT Alkaline Phosphatase Total Creatine Kinase 4527 H CK-MB (CK-2) Troponin T C-Reactive Protein Total Protein Albumin Triglycerides LDL Cholesterol Direct HDL Cholesterol Free T4 PTH Intact Urine WBC (Auto) Urine Creatinine Salicylates Acetaminophen Crossmatch 03/27/19 03/27/19 03/27/19 04:30 04:30 09:00 WBC 19.2 H RBC 3.42 L Hgb 9.9 L Hct 30.0 L RDW Plt Count 84 L Lymph % (Auto) [place] % (Auto) Lymph # Seg Neutrophils % Seg Neuts % (Manual) Lymphocytes % (Manual) Monocytes % (Manual) Nucleated RBC % Seg Neutrophils # Seg Neutrophils # Man Lymphocytes # (Manual) Monocytes # (Manual) PT INR D-Dimer Heparin Anti-Xa Level POC ABG pH ABG pH POC ABG pCO2 POC ABG pO2 ABG pO2 ABG HCO3 ABG O2 Saturation ABG Base Excess ABG Hemoglobin Oxyhemoglobin Sodium 135 L Potassium Chloride 93.5 L Carbon Dioxide BUN 84 H Creatinine 7.1 H Glucose POC Glucose Lactic Acid Calcium 5.0 L* Ionized Calcium Phosphorus Magnesium Iron TIBC Ferritin Total Bilirubin Direct Bilirubin AST 78 H ALT Alkaline Phosphatase 135 H Total Creatine Kinase 4677 H CK-MB (CK-2) Troponin T C-Reactive Protein Total Protein 4.8 L Albumin 2.3 L Triglycerides 409 H LDL Cholesterol Direct HDL Cholesterol Free T4 PTH Intact Urine WBC (Auto) Urine Creatinine Salicylates Acetaminophen Crossmatch 03/27/19 03/27/19 03/27/19 12:37 14:15 14:15 WBC RBC Hgb 9.7 L Hct 29.5 L RDW Plt Count 87 L Lymph % (Auto) [place] % (Auto) Lymph # Seg Neutrophils % Seg Neuts % (Manual) Lymphocytes % (Manual) Monocytes % (Manual) Nucleated RBC % Seg Neutrophils # Seg Neutrophils # Man Lymphocytes # (Manual) Monocytes # (Manual) PT 15.9 H INR 1.30 H D-Dimer Heparin Anti-Xa Level POC ABG pH ABG pH POC ABG pCO2 POC ABG pO2 ABG pO2 ABG HCO3 ABG O2 Saturation ABG Base Excess ABG Hemoglobin Oxyhemoglobin Sodium Potassium Chloride Carbon Dioxide BUN Creatinine Glucose POC Glucose 129 H Lactic Acid Calcium Ionized Calcium Phosphorus Magnesium Iron TIBC Ferritin Total Bilirubin Direct Bilirubin AST ALT Alkaline Phosphatase Total Creatine Kinase CK-MB (CK-2) Troponin T C-Reactive Protein Total Protein Albumin Triglycerides LDL Cholesterol Direct HDL Cholesterol Free T4 PTH Intact Urine WBC (Auto) Urine Creatinine Salicylates Acetaminophen Crossmatch 03/27/19 03/27/19 03/27/19 18:00 19:22 19:23 WBC RBC Hgb Hct RDW Plt Count Lymph % (Auto) [place] % (Auto) Lymph # Seg Neutrophils % Seg Neuts % (Manual) Lymphocytes % (Manual) Monocytes % (Manual) Nucleated RBC % Seg Neutrophils # Seg Neutrophils # Man Lymphocytes # (Manual) Monocytes # (Manual) PT INR D-Dimer Heparin Anti-Xa Level < 0.10 L POC ABG pH ABG pH POC ABG pCO2 POC ABG pO2 ABG pO2 ABG HCO3 ABG O2 Saturation ABG Base Excess ABG Hemoglobin Oxyhemoglobin Sodium Potassium Chloride Carbon Dioxide BUN Creatinine Glucose POC Glucose 121 H Lactic Acid Calcium Ionized Calcium Phosphorus Magnesium Iron TIBC Ferritin Total Bilirubin Direct Bilirubin AST ALT Alkaline Phosphatase Total Creatine Kinase 4517 H CK-MB (CK-2) Troponin T C-Reactive Protein Total Protein Albumin Triglycerides LDL Cholesterol Direct HDL Cholesterol Free T4 PTH Intact Urine WBC (Auto) Urine Creatinine Salicylates Acetaminophen Crossmatch 03/27/19 03/27/19 03/28/19 22:10 23:52 03:49 WBC RBC Hgb Hct RDW Plt Count Lymph % (Auto) [place] % (Auto) Lymph # Seg Neutrophils % Seg Neuts % (Manual) Lymphocytes % (Manual) Monocytes % (Manual) Nucleated RBC % Seg Neutrophils # Seg Neutrophils # Man Lymphocytes # (Manual) Monocytes # (Manual) PT INR D-Dimer Heparin Anti-Xa Level POC ABG pH 7.338 L ABG pH POC ABG pCO2 33.1 L POC ABG pO2 ABG pO2 ABG HCO3 ABG O2 Saturation ABG Base Excess ABG Hemoglobin Oxyhemoglobin Sodium Potassium Chloride Carbon Dioxide BUN Creatinine Glucose POC Glucose 113 H 117 H Lactic Acid Calcium Ionized Calcium Phosphorus Magnesium Iron TIBC Ferritin Total Bilirubin Direct Bilirubin AST ALT Alkaline Phosphatase Total Creatine Kinase CK-MB (CK-2) Troponin T C-Reactive Protein Total Protein Albumin Triglycerides LDL Cholesterol Direct HDL Cholesterol Free T4 PTH Intact Urine WBC (Auto) Urine Creatinine Salicylates Acetaminophen Crossmatch 03/28/19 03/28/19 03/28/19 05:13 05:13 06:18 WBC RBC Hgb Hct RDW Plt Count Lymph % (Auto) [place] % (Auto) Lymph # Seg Neutrophils % Seg Neuts % (Manual) Lymphocytes % (Manual) Monocytes % (Manual) Nucleated RBC % Seg Neutrophils # Seg Neutrophils # Man Lymphocytes # (Manual) Monocytes # (Manual) PT INR D-Dimer Heparin Anti-Xa Level 0.23 L POC ABG pH ABG pH POC ABG pCO2 POC ABG pO2 ABG pO2 ABG HCO3 ABG O2 Saturation ABG Base Excess ABG Hemoglobin Oxyhemoglobin Sodium 135 L Potassium 5.5 H D Chloride 95.1 L Carbon Dioxide 16 L D BUN 129 H Creatinine 9.3 H Glucose 158 H POC Glucose 202 H Lactic Acid Calcium 4.0 L* D Ionized Calcium Phosphorus 12.40 H Magnesium Iron TIBC Ferritin Total Bilirubin Direct Bilirubin AST ALT Alkaline Phosphatase Total Creatine Kinase 4266 H CK-MB (CK-2) Troponin T C-Reactive Protein Total Protein Albumin Triglycerides LDL Cholesterol Direct HDL Cholesterol Free T4 PTH Intact Urine WBC (Auto) Urine Creatinine Salicylates Acetaminophen Crossmatch 03/28/19 03/28/19 03/28/19 08:25 10:00 12:00 WBC RBC Hgb 4.9 L* D Hct 15.4 L* D RDW Plt Count Lymph % (Auto) [place] % (Auto) Lymph # Seg Neutrophils % Seg Neuts % (Manual) Lymphocytes % (Manual) Monocytes % (Manual) Nucleated RBC % Seg Neutrophils # Seg Neutrophils # Man Lymphocytes # (Manual) Monocytes # (Manual) PT 17.9 H INR 1.52 H D-Dimer 4845.98 H Heparin Anti-Xa Level POC ABG pH ABG pH POC ABG pCO2 POC ABG pO2 ABG pO2 ABG HCO3 ABG O2 Saturation ABG Base Excess ABG Hemoglobin Oxyhemoglobin Sodium Potassium Chloride Carbon Dioxide BUN Creatinine Glucose POC Glucose Lactic Acid Calcium Ionized Calcium Phosphorus Magnesium Iron TIBC Ferritin Total Bilirubin Direct Bilirubin AST ALT Alkaline Phosphatase Total Creatine Kinase CK-MB (CK-2) Troponin T C-Reactive Protein Total Protein Albumin Triglycerides LDL Cholesterol Direct HDL Cholesterol Free T4 PTH Intact Urine WBC (Auto) Urine Creatinine Salicylates Acetaminophen Crossmatch See Detail 03/28/19 03/28/19 03/28/19 12:28 14:10 17:43 WBC RBC Hgb 5.9 L* Hct 18.3 L* RDW Plt Count Lymph % (Auto) [place] % (Auto) Lymph # Seg Neutrophils % Seg Neuts % (Manual) Lymphocytes % (Manual) Monocytes % (Manual) Nucleated RBC % Seg Neutrophils # Seg Neutrophils # Man Lymphocytes # (Manual) Monocytes # (Manual) PT INR D-Dimer Heparin Anti-Xa Level POC ABG pH ABG pH POC ABG pCO2 POC ABG pO2 ABG pO2 ABG HCO3 ABG O2 Saturation ABG Base Excess ABG Hemoglobin Oxyhemoglobin Sodium Potassium Chloride Carbon Dioxide BUN Creatinine Glucose POC Glucose 153 H 159 H Lactic Acid Calcium Ionized Calcium Phosphorus Magnesium Iron TIBC Ferritin Total Bilirubin Direct Bilirubin AST ALT Alkaline Phosphatase Total Creatine Kinase CK-MB (CK-2) Troponin T C-Reactive Protein Total Protein Albumin Triglycerides LDL Cholesterol Direct HDL Cholesterol Free T4 PTH Intact Urine WBC (Auto) Urine Creatinine Salicylates Acetaminophen Crossmatch 1003/28/19 03/28/19 18:10 Unknown 23:59 WBC 24.8 H RBC 3.42 L Hgb 10.2 L D Hct 31.1 L D RDW 15.4 H Plt Count 54 L Lymph % (Auto) [place] % (Auto) Lymph # Seg Neutrophils % Seg Neuts % (Manual) 91.0 H Lymphocytes % (Manual) 8.0 L Monocytes % (Manual) Nucleated RBC % Seg Neutrophils # Seg Neutrophils # Man 22.6 H Lymphocytes # (Manual) Monocytes # (Manual) PT INR D-Dimer Heparin Anti-Xa Level POC ABG pH ABG pH POC ABG pCO2 POC ABG pO2 ABG pO2 ABG HCO3 ABG O2 Saturation ABG Base Excess ABG Hemoglobin Oxyhemoglobin Sodium Potassium 5.7 H Chloride Carbon Dioxide BUN Creatinine Glucose POC Glucose 107 H Lactic Acid Calcium Ionized Calcium Phosphorus Magnesium Iron TIBC Ferritin Total Bilirubin Direct Bilirubin AST ALT Alkaline Phosphatase Total Creatine Kinase CK-MB (CK-2) Troponin T C-Reactive Protein Total Protein Albumin Triglycerides LDL Cholesterol Direct HDL Cholesterol Free T4 PTH Intact Urine WBC (Auto) Urine Creatinine Salicylates Acetaminophen Crossmatch 03/29/19 03/29/19 03/29/19 04:29 05:46 06:22 WBC RBC Hgb 8.6 L Hct 25.7 L RDW Plt Count 93 L Lymph % (Auto) [place] % (Auto) Lymph # Seg Neutrophils % Seg Neuts % (Manual) Lymphocytes % (Manual) Monocytes % (Manual) Nucleated RBC % Seg Neutrophils # Seg Neutrophils # Man Lymphocytes # (Manual) Monocytes # (Manual) PT INR D-Dimer Heparin Anti-Xa Level POC ABG pH ABG pH POC ABG pCO2 32.2 L POC ABG pO2 ABG pO2 ABG HCO3 ABG O2 Saturation ABG Base Excess ABG Hemoglobin Oxyhemoglobin Sodium Potassium Chloride Carbon Dioxide BUN Creatinine Glucose POC Glucose 113 H Lactic Acid Calcium Ionized Calcium Phosphorus Magnesium Iron TIBC Ferritin Total Bilirubin Direct Bilirubin AST ALT Alkaline Phosphatase Total Creatine Kinase CK-MB (CK-2) Troponin T C-Reactive Protein Total Protein Albumin Triglycerides LDL Cholesterol Direct HDL Cholesterol Free T4 PTH Intact Urine WBC (Auto) Urine Creatinine Salicylates Acetaminophen Crossmatch 03/29/19 03/29/19 03/29/19 06:22 06:22 06:22 WBC 23.2 H RBC 2.91 L Hgb 8.6 L Hct 25.8 L RDW Plt Count 91 L Lymph % (Auto) [place] % (Auto) Lymph # Seg Neutrophils % Seg Neuts % (Manual) Lymphocytes % (Manual) Monocytes % (Manual) Nucleated RBC % Seg Neutrophils # Seg Neutrophils # Man Lymphocytes # (Manual) Monocytes # (Manual) PT INR D-Dimer Heparin Anti-Xa Level POC ABG pH ABG pH POC ABG pCO2 POC ABG pO2 ABG pO2 ABG HCO3 ABG O2 Saturation ABG Base Excess ABG Hemoglobin Oxyhemoglobin Sodium 133 L Potassium Chloride 93.8 L Carbon Dioxide 18 L BUN 109 H Creatinine 7.4 H Glucose 124 H POC Glucose Lactic Acid Calcium 4.6 L* Ionized Calcium Phosphorus Magnesium Iron TIBC Ferritin Total Bilirubin Direct Bilirubin AST ALT Alkaline Phosphatase Total Creatine Kinase 3401 H CK-MB (CK-2) Troponin T C-Reactive Protein Total Protein Albumin Triglycerides 309 H LDL Cholesterol Direct HDL Cholesterol Free T4 PTH Intact Urine WBC (Auto) Urine Creatinine Salicylates Acetaminophen Crossmatch 03/29/19 03/29/19 03/29/19 11:48 11:48 18:24 WBC RBC Hgb 7.8 L Hct 23.2 L RDW Plt Count Lymph % (Auto) [place] % (Auto) Lymph # Seg Neutrophils % Seg Neuts % (Manual) Lymphocytes % (Manual) Monocytes % (Manual) Nucleated RBC % Seg Neutrophils # Seg Neutrophils # Man Lymphocytes # (Manual) Monocytes # (Manual) PT 15.3 H INR 1.24 H D-Dimer Heparin Anti-Xa Level POC ABG pH ABG pH POC ABG pCO2 POC ABG pO2 ABG pO2 ABG HCO3 ABG O2 Saturation ABG Base Excess ABG Hemoglobin Oxyhemoglobin Sodium Potassium Chloride Carbon Dioxide BUN Creatinine Glucose POC Glucose 122 H Lactic Acid Calcium Ionized Calcium Phosphorus Magnesium Iron TIBC Ferritin Total Bilirubin Direct Bilirubin AST ALT Alkaline Phosphatase Total Creatine Kinase CK-MB (CK-2) Troponin T C-Reactive Protein Total Protein Albumin Triglycerides LDL Cholesterol Direct HDL Cholesterol Free T4 PTH Intact Urine WBC (Auto) Urine Creatinine Salicylates Acetaminophen Crossmatch 03/30/19 03/30/19 03/30/19 00:40 04:31 05:04 WBC RBC Hgb 7.6 L Hct 23.0 L RDW Plt Count Lymph % (Auto) [place] % (Auto) Lymph # Seg Neutrophils % Seg Neuts % (Manual) Lymphocytes % (Manual) Monocytes % (Manual) Nucleated RBC % Seg Neutrophils # Seg Neutrophils # Man Lymphocytes # (Manual) Monocytes # (Manual) PT INR D-Dimer Heparin Anti-Xa Level POC ABG pH 7.346 L ABG pH POC ABG pCO2 POC ABG pO2 62 L ABG pO2 ABG HCO3 ABG O2 Saturation ABG Base Excess ABG Hemoglobin Oxyhemoglobin Sodium Potassium Chloride Carbon Dioxide BUN 79 H Creatinine 6.4 H Glucose POC Glucose Lactic Acid Calcium 6.1 L D Ionized Calcium Phosphorus Magnesium Iron TIBC Ferritin Total Bilirubin Direct Bilirubin AST ALT Alkaline Phosphatase Total Creatine Kinase CK-MB (CK-2) Troponin T C-Reactive Protein Total Protein Albumin Triglycerides LDL Cholesterol Direct HDL Cholesterol Free T4 PTH Intact Urine WBC (Auto) Urine Creatinine Salicylates Acetaminophen Crossmatch 03/30/19 03/30/19 03/30/19 08:45 12:09 22:43 WBC 14.3 H RBC 2.33 L Hgb 7.0 L 7.4 L Hct 21.0 L 22.3 L RDW 15.6 H Plt Count 135 L Lymph % (Auto) [place] % (Auto) Lymph # Seg Neutrophils % Seg Neuts % (Manual) Lymphocytes % (Manual) Monocytes % (Manual) Nucleated RBC % Seg Neutrophils # Seg Neutrophils # Man Lymphocytes # (Manual) Monocytes # (Manual) PT INR D-Dimer Heparin Anti-Xa Level POC ABG pH ABG pH POC ABG pCO2 POC ABG pO2 ABG pO2 ABG HCO3 ABG O2 Saturation ABG Base Excess ABG Hemoglobin Oxyhemoglobin Sodium Potassium Chloride Carbon Dioxide BUN Creatinine Glucose POC Glucose Lactic Acid Calcium Ionized Calcium 3.7 L Phosphorus Magnesium Iron TIBC Ferritin Total Bilirubin Direct Bilirubin AST ALT Alkaline Phosphatase Total Creatine Kinase CK-MB (CK-2) Troponin T C-Reactive Protein Total Protein Albumin Triglycerides LDL Cholesterol Direct HDL Cholesterol Free T4 PTH Intact Urine WBC (Auto) Urine Creatinine Salicylates Acetaminophen Crossmatch 03/30/19 03/30/19 03/31/19 23:38 Unknown 04:44 WBC 11.5 H RBC 2.40 L Hgb 7.3 L Hct 21.9 L RDW 15.4 H Plt Count Lymph % (Auto) 10.6 L [place] % (Auto) Lymph # Seg Neutrophils % 81.7 H Seg Neuts % (Manual) Lymphocytes % (Manual) Monocytes % (Manual) Nucleated RBC % Seg Neutrophils # 9.4 H Seg Neutrophils # Man Lymphocytes # (Manual) Monocytes # (Manual) PT INR D-Dimer Heparin Anti-Xa Level POC ABG pH ABG pH POC ABG pCO2 POC ABG pO2 ABG pO2 ABG HCO3 ABG O2 Saturation ABG Base Excess ABG Hemoglobin Oxyhemoglobin Sodium Potassium Chloride Carbon Dioxide BUN Creatinine Glucose POC Glucose 155 H Lactic Acid Calcium Ionized Calcium Phosphorus Magnesium Iron TIBC Ferritin Total Bilirubin Direct Bilirubin 0.4 H AST 63 H ALT Alkaline Phosphatase Total Creatine Kinase CK-MB (CK-2) Troponin T C-Reactive Protein Total Protein 4.9 L Albumin 2.2 L Triglycerides LDL Cholesterol Direct HDL Cholesterol Free T4 PTH Intact Urine WBC (Auto) Urine Creatinine Salicylates Acetaminophen Crossmatch 03/31/19 03/31/19 03/31/19 04:44 05:44 08:20 WBC RBC Hgb Hct RDW Plt Count Lymph % (Auto) [place] % (Auto) Lymph # Seg Neutrophils % Seg Neuts % (Manual) Lymphocytes % (Manual) Monocytes % (Manual) Nucleated RBC % Seg Neutrophils # Seg Neutrophils # Man Lymphocytes # (Manual) Monocytes # (Manual) PT INR D-Dimer Heparin Anti-Xa Level POC ABG pH ABG pH POC ABG pCO2 53.5 H POC ABG pO2 62 L ABG pO2 ABG HCO3 ABG O2 Saturation ABG Base Excess ABG Hemoglobin Oxyhemoglobin Sodium 135 L Potassium Chloride 96.7 L Carbon Dioxide 19 L BUN 94 H Creatinine 7.8 H Glucose POC Glucose Lactic Acid Calcium 5.3 L* Ionized Calcium Phosphorus 8.20 H Magnesium Iron TIBC Ferritin Total Bilirubin Direct Bilirubin 0.4 H AST 60 H ALT Alkaline Phosphatase Total Creatine Kinase CK-MB (CK-2) Troponin T C-Reactive Protein Total Protein 4.8 L Albumin 2.1 L Triglycerides LDL Cholesterol Direct HDL Cholesterol Free T4 PTH Intact Urine WBC (Auto) Urine Creatinine Salicylates Acetaminophen Crossmatch 03/31/19 04/01/19 04/01/19 22:14 04:27 04:27 WBC RBC 2.60 L Hgb 8.0 L Hct 24.1 L RDW 15.7 H Plt Count Lymph % (Auto) 7.9 L [place] % (Auto) Lymph # 0.7 L Seg Neutrophils % 83.6 H Seg Neuts % (Manual) Lymphocytes % (Manual) Monocytes % (Manual) Nucleated RBC % Seg Neutrophils # Seg Neutrophils # Man Lymphocytes # (Manual) Monocytes # (Manual) PT INR D-Dimer Heparin Anti-Xa Level POC ABG pH 7.286 L ABG pH POC ABG pCO2 54.7 H POC ABG pO2 179 H ABG pO2 ABG HCO3 ABG O2 Saturation ABG Base Excess ABG Hemoglobin Oxyhemoglobin Sodium Potassium Chloride Carbon Dioxide BUN 68 H Creatinine 6.6 H Glucose POC Glucose Lactic Acid Calcium 6.5 L D Ionized Calcium Phosphorus 7.30 H Magnesium Iron TIBC Ferritin Total Bilirubin Direct Bilirubin AST ALT Alkaline Phosphatase Total Creatine Kinase 1652 H CK-MB (CK-2) Troponin T C-Reactive Protein Total Protein Albumin Triglycerides LDL Cholesterol Direct HDL Cholesterol Free T4 PTH Intact Urine WBC (Auto) Urine Creatinine Salicylates Acetaminophen Crossmatch 04/01/19 04/01/19 04/01/19 05:14 05:37 18:37 WBC RBC Hgb Hct RDW Plt Count Lymph % (Auto) [place] % (Auto) Lymph # Seg Neutrophils % Seg Neuts % (Manual) Lymphocytes % (Manual) Monocytes % (Manual) Nucleated RBC % Seg Neutrophils # Seg Neutrophils # Man Lymphocytes # (Manual) Monocytes # (Manual) PT INR D-Dimer Heparin Anti-Xa Level POC ABG pH 7.283 L ABG pH POC ABG pCO2 53.4 H POC ABG pO2 241 H ABG pO2 ABG HCO3 ABG O2 Saturation ABG Base Excess ABG Hemoglobin Oxyhemoglobin Sodium Potassium Chloride Carbon Dioxide BUN Creatinine Glucose POC Glucose 111 H 119 H Lactic Acid Calcium Ionized Calcium Phosphorus Magnesium Iron TIBC Ferritin Total Bilirubin Direct Bilirubin AST ALT Alkaline Phosphatase Total Creatine Kinase CK-MB (CK-2) Troponin T C-Reactive Protein Total Protein Albumin Triglycerides LDL Cholesterol Direct HDL Cholesterol Free T4 PTH Intact Urine WBC (Auto) Urine Creatinine Salicylates Acetaminophen Crossmatch 04/01/19 04/02/19 04/02/19 21:28 04:40 05:03 WBC RBC 2.36 L Hgb 7.2 L Hct 21.9 L RDW 16.0 H Plt Count Lymph % (Auto) 10.8 L [place] % (Auto) Lymph # 0.8 L Seg Neutrophils % 80.3 H Seg Neuts % (Manual) Lymphocytes % (Manual) Monocytes % (Manual) Nucleated RBC % Seg Neutrophils # Seg Neutrophils # Man Lymphocytes # (Manual) Monocytes # (Manual) PT INR D-Dimer Heparin Anti-Xa Level POC ABG pH 7.299 L 7.300 L ABG pH POC ABG pCO2 48.2 H 45.2 H POC ABG pO2 133 H 107 H ABG pO2 ABG HCO3 ABG O2 Saturation ABG Base Excess ABG Hemoglobin Oxyhemoglobin Sodium Potassium Chloride Carbon Dioxide BUN Creatinine Glucose POC Glucose Lactic Acid Calcium Ionized Calcium Phosphorus Magnesium Iron TIBC Ferritin Total Bilirubin Direct Bilirubin AST ALT Alkaline Phosphatase Total Creatine Kinase CK-MB (CK-2) Troponin T C-Reactive Protein Total Protein Albumin Triglycerides LDL Cholesterol Direct HDL Cholesterol Free T4 PTH Intact Urine WBC (Auto) Urine Creatinine Salicylates Acetaminophen Crossmatch 04/02/19 04/02/19 04/02/19 05:03 05:03 12:15 WBC RBC Hgb 7.4 L Hct 22.6 L RDW Plt Count Lymph % (Auto) [place] % (Auto) Lymph # Seg Neutrophils % Seg Neuts % (Manual) Lymphocytes % (Manual) Monocytes % (Manual) Nucleated RBC % Seg Neutrophils # Seg Neutrophils # Man Lymphocytes # (Manual) Monocytes # (Manual) PT INR D-Dimer Heparin Anti-Xa Level POC ABG pH ABG pH POC ABG pCO2 POC ABG pO2 ABG pO2 ABG HCO3 ABG O2 Saturation ABG Base Excess ABG Hemoglobin Oxyhemoglobin Sodium 136 L Potassium Chloride 97.8 L Carbon Dioxide 18 L BUN 82 H Creatinine 8.2 H Glucose POC Glucose Lactic Acid Calcium 6.7 L Ionized Calcium Phosphorus 7.50 H Magnesium Iron 26 L TIBC 138 L Ferritin 607.0 H Total Bilirubin Direct Bilirubin AST ALT Alkaline Phosphatase Total Creatine Kinase CK-MB (CK-2) Troponin T C-Reactive Protein Total Protein Albumin Triglycerides LDL Cholesterol Direct HDL Cholesterol Free T4 PTH Intact Urine WBC (Auto) Urine Creatinine Salicylates Acetaminophen Crossmatch 04/02/19 04/02/19 04/03/19 16:34 17:14 04:18 WBC RBC Hgb Hct RDW Plt Count Lymph % (Auto) [place] % (Auto) Lymph # Seg Neutrophils % Seg Neuts % (Manual) Lymphocytes % (Manual) Monocytes % (Manual) Nucleated RBC % Seg Neutrophils # Seg Neutrophils # Man Lymphocytes # (Manual) Monocytes # (Manual) PT INR D-Dimer Heparin Anti-Xa Level POC ABG pH ABG pH POC ABG pCO2 POC ABG pO2 146 H ABG pO2 ABG HCO3 ABG O2 Saturation ABG Base Excess ABG Hemoglobin Oxyhemoglobin Sodium Potassium Chloride Carbon Dioxide BUN Creatinine Glucose POC Glucose 108 H Lactic Acid Calcium Ionized Calcium Phosphorus Magnesium Iron TIBC Ferritin Total Bilirubin Direct Bilirubin AST ALT Alkaline Phosphatase Total Creatine Kinase CK-MB (CK-2) Troponin T C-Reactive Protein Total Protein Albumin Triglycerides LDL Cholesterol Direct HDL Cholesterol Free T4 PTH Intact Urine WBC (Auto) Urine Creatinine Salicylates Acetaminophen Crossmatch See Detail 04/03/19 04/03/19 04:25 08:30 WBC RBC 2.40 L Hgb 7.3 L Hct 21.9 L RDW Plt Count Lymph % (Auto) [place] % (Auto) 7.7 H Lymph # 0.9 L Seg Neutrophils % 74.6 H Seg Neuts % (Manual) Lymphocytes % (Manual) Monocytes % (Manual) Nucleated RBC % Seg Neutrophils # Seg Neutrophils # Man Lymphocytes # (Manual) Monocytes # (Manual) PT INR D-Dimer Heparin Anti-Xa Level POC ABG pH ABG pH POC ABG pCO2 POC ABG pO2 ABG pO2 ABG HCO3 ABG O2 Saturation ABG Base Excess ABG Hemoglobin Oxyhemoglobin Sodium 136 L Potassium Chloride 97.0 L Carbon Dioxide BUN 58 H Creatinine 7.3 H Glucose POC Glucose Lactic Acid Calcium 7.5 L Ionized Calcium Phosphorus 5.80 H D Magnesium Iron TIBC Ferritin Total Bilirubin Direct Bilirubin AST ALT Alkaline Phosphatase Total Creatine Kinase CK-MB (CK-2) Troponin T C-Reactive Protein Total Protein Albumin Triglycerides LDL Cholesterol Direct HDL Cholesterol Free T4 PTH Intact Urine WBC (Auto) Urine Creatinine Salicylates Acetaminophen Crossmatch
--- NOTE | 2019-04-03 15:05 | Progress Note ---
Assessment and Plan Assessment and plan: Patient is a 43-year-old man with history of GERD, obesity and mental illness who presented to [facility] ED on 03/16/2019 with altered mental status. He is visiting from [place] and was brought in by his friend. When he came to the ER, he was unable to speak or follow commands, in the ER he was found to have SVT with heart rate in the 250s. The patient was shocks and medicated. He became more confused and had trouble protecting his airway; therefore, he was then intubated. During this hospital coarse, he was found to have sepsis with septic shock, rhabdomyolysis, RUBEN, and multisystem organ failure. According to the patient's clinical findings, the patient likely has toxic metabolic encephalopathy. Acute hypoxic respiratory failure on mechanical ventilator greater than 96 hours , suspect ARDS: pulmonologis is following, trying to wean P.Afib/flutter with RVR: IV Amiodorone Torsade sparkle points/ventricular tachycardia Acute combine heart failure, EF 40%: Cardiology input noted, continue amiodarone drip, no beta-adela or CHRISTIN given hypotension, will need ischemic cardiac stratification if he improves. Acute GI bleed, upper GI bleed due to PUD, EGD on 03/30 shows multiple ulcers, and large ulcer was rx with epi, unfortunately patient had melena again on 04/02, hold tube feeds, restart Protonix drip, discussed with GI Acute blood loss anemia, Transfused multiple units of PRBC, now improved, transfuse another unit as patient is actively bleeding Right IJ nonocclusive thrombosis, Discussed with vascular surgery, patient unable to tolerate anticoagulation due to thrombocytopenia and GI bleeding. Will monitor Septic shock with multiorgan failure, off pressors >48 hours: down to Levophed, continue to wean vasopressors Aspiration pneumonia: completed ABX Acute kidney injury, rhabdomyolysis, hyperkalemia due to ATN: Continue dialysis per nephrology Acute Metabolic Encephalopathy Severe metabolic acidosis, improved: monitoring BMP closely Rhabdomyolysis, CK trending down Thrombocytopenia, Likely due to sepsis, continue to monitor ?Right axillary edema: no abscess, US no collection seen DVT prophylaxis, no anticoagulation given multiple episodes of GI bleed and thrombocytopenia. SCDs CCT 35 minutes History Interval history: Patient was seen and examined. Follow-up on current diagnosis of resp failure. No overnight events reported to me. Imaging, nursing note, chart, labs and old chart reviewed. Patient intubated and sedated. Hospitalist Physical - Physical exam Narrative exam: Gen: critically ill, bmi 47, intubated and sedated HEENT: NCAT, EOMI, PERRL, OP eTT and NGt in place Neck: supple, no adenopathy, no thyromegaly, CVS/Heart: irregular irregular, normal S1S2, pulses present bilaterally Chest/Lungs: Symmetrical chest expansion, good air entry bilaterally GI/Abdomen: soft, NTND, good bowel sounds, no guarding or rebound /Bladder: no suprapubic tenderness, no CVA or paraspinal tenderness Extermity/Skin: dependent edema MSK: sedated Neuro: sedated Psych: sedated - Constitutional Vitals: Temp Pulse Resp BP Pulse Ox 99.8 F H 154 H 15 132/73 100 04/03/19 12:00 04/03/19 14:16 04/03/19 14:16 04/03/19 14:16 04/03/19 14:16 General appearance: Present: other (intubated) Results - Labs CBC & Chem 7: 04/03/19 04:25 04/03/19 08:30 Labs: Laboratory Last Values WBC 5.9 K/mm3 (4.5-11.0) 04/03/19 04:25 RBC 2.40 M/mm3 (3.65-5.03) L 04/03/19 04:25 Hgb 7.3 gm/dl (11.8-15.2) L 04/03/19 04:25 Hct 21.9 % (35.5-45.6) L 04/03/19 04:25 MCV 91 fl (84-94) 04/03/19 04:25 MCH 31 pg (28-32) 04/03/19 04:25 MCHC 34 % (32-34) 04/03/19 04:25 RDW 15.1 % (13.2-15.2) 04/03/19 04:25 Plt Count 162 K/mm3 (140-440) 04/03/19 04:25 Lymph % (Auto) 15.2 % (13.4-35.0) 04/03/19 04:25 [place] % (Auto) 7.7 % (0.0-7.3) H 04/03/19 04:25 Eos % (Auto) 2.2 % (0.0-4.3) 04/03/19 04:25 Baso % (Auto) 0.3 % (0.0-1.8) 04/03/19 04:25 Lymph # 0.9 K/mm3 (1.2-5.4) L 04/03/19 04:25 [place] # 0.5 K/mm3 (0.0-0.8) 04/03/19 04:25 Eos # 0.1 K/mm3 (0.0-0.4) 04/03/19 04:25 Baso # 0.0 K/mm3 (0.0-0.1) 04/03/19 04:25 Add Manual Diff Complete 03/28/19 18:10 Total Counted 100 03/28/19 18:10 Seg Neutrophils % 74.6 % (40.0-70.0) H 04/03/19 04:25 Seg Neuts % (Manual) 91.0 % (40.0-70.0) H 03/28/19 18:10 Band Neutrophils % 0 % 03/28/19 18:10 Lymphocytes % (Manual) 8.0 % (13.4-35.0) L 03/28/19 18:10 Reactive Lymphs % (Man) 0 % 03/28/19 18:10 Monocytes % (Manual) 1.0 % (0.0-7.3) 03/28/19 18:10 Eosinophils % (Manual) 0 % (0.0-4.3) 03/28/19 18:10 Basophils % (Manual) 0 % (0.0-1.8) 03/28/19 18:10 Metamyelocytes % 0 % 03/28/19 18:10 Myelocytes % 0 % 03/28/19 18:10 Promyelocytes % 0 % 03/28/19 18:10 Blast Cells % 0 % 03/28/19 18:10 Nucleated RBC % Not Reportable 03/28/19 18:10 Seg Neutrophils # 4.4 K/mm3 (1.8-7.7) 04/03/19 04:25 Seg Neutrophils # Man 22.6 K/mm3 (1.8-7.7) H 03/28/19 18:10 Band Neutrophils # 0.0 K/mm3 03/28/19 18:10 Lymphocytes # (Manual) 2.0 K/mm3 (1.2-5.4) 03/28/19 18:10 Abs React Lymphs (Man) 0.0 K/mm3 03/28/19 18:10 Monocytes # (Manual) 0.2 K/mm3 (0.0-0.8) 03/28/19 18:10 Eosinophils # (Manual) 0.0 K/mm3 (0.0-0.4) 03/28/19 18:10 Basophils # (Manual) 0.0 K/mm3 (0.0-0.1) 03/28/19 18:10 Metamyelocytes # 0.0 K/mm3 03/28/19 18:10 Myelocytes # 0.0 K/mm3 03/28/19 18:10 Promyelocytes # 0.0 K/mm3 03/28/19 18:10 Blast Cells # 0.0 K/mm3 03/28/19 18:10 WBC Morphology Not Reportable 03/28/19 18:10 Hypersegmented Neuts Not Reportable 03/28/19 18:10 Hyposegmented Neuts Not Reportable 03/28/19 18:10 Hypogranular Neuts Not Reportable 03/28/19 18:10 Smudge Cells Not Reportable 03/28/19 18:10 Toxic Granulation Not Reportable 03/28/19 18:10 Toxic Vacuolation Not Reportable 03/28/19 18:10 Dohle Bodies Not Reportable 03/28/19 18:10 Pelger-Huet Anomaly Not Reportable 03/28/19 18:10 Joyce Rods Not Reportable 03/28/19 18:10 Platelet Estimate Appears decreased 03/28/19 18:10 Clumped Platelets Not Reportable 03/28/19 18:10 Plt Clumps, EDTA Not Reportable 03/28/19 18:10 Large Platelets Not Reportable 03/28/19 18:10 Giant Platelets Not Reportable 03/28/19 18:10 Platelet Satelliting Not Reportable 03/28/19 18:10 Plt Morphology Comment Not Reportable 03/28/19 18:10 RBC Morphology Not Reportable 03/28/19 18:10 Dimorphic RBCs Not Reportable 03/28/19 18:10 Polychromasia Not Reportable 03/28/19 18:10 Hypochromasia Not Reportable 03/28/19 18:10 Poikilocytosis Not Reportable 03/28/19 18:10 Anisocytosis Few 03/28/19 18:10 Microcytosis Not Reportable 03/28/19 18:10 Macrocytosis Not Reportable 03/28/19 18:10 Spherocytes Not Reportable 03/28/19 18:10 Pappenheimer Bodies Not Reportable 03/28/19 18:10 Sickle Cells Not Reportable 03/28/19 18:10 Target Cells Not Reportable 03/28/19 18:10 Tear Drop Cells Not Reportable 03/28/19 18:10 Ovalocytes Not Reportable 03/28/19 18:10 Stomatocytes Few 03/26/19 Unknown Helmet Cells Not Reportable 03/28/19 18:10 Shrestha-Sawyer Bodies Not Reportable 03/28/19 18:10 Wilmot Rings Not Reportable 03/28/19 18:10 Samantha Cells Not Reportable 03/28/19 18:10 Bite Cells Not Reportable 03/28/19 18:10 Crenated Cell Not Reportable 03/28/19 18:10 Elliptocytes Not Reportable 03/28/19 18:10 Acanthocytes (Spur) Not Reportable 03/28/19 18:10 Rouleaux Not Reportable 03/28/19 18:10 Hemoglobin C Crystals Not Reportable 03/28/19 18:10 Schistocytes Not Reportable 03/28/19 18:10 Malaria parasites Not Reportable 03/28/19 18:10 Phil Bodies Not Reportable 03/28/19 18:10 Hem Pathologist Commnt No 03/28/19 18:10 PT 15.3 Sec. (12.2-14.9) H 03/29/19 11:48 INR 1.24 (0.87-1.13) H 03/29/19 11:48 APTT 26.6 Sec. (24.2-36.6) 03/28/19 12:00 Fibrinogen 226 mg/dl (211-480) 03/28/19 12:00 D-Dimer 4845.98 ng/mlDDU (0-234) H 03/28/19 12:00 Heparin Anti-Xa Level 0.23 U.I./ml (0.3-0.7) L 03/28/19 05:13 POC ABG pH 7.383 (7.35-7.45) 04/03/19 04:18 ABG pH 7.326 pH Units (7.350-7.450) L 03/26/19 04:30 POC ABG pCO2 43.9 (35-45) 04/03/19 04:18 ABG pCO2 36.4 mm Hg 03/26/19 04:30 POC ABG pO2 146 (80-105) H 04/03/19 04:18 ABG pO2 137.4 mm Hg (80.0-90.0) H 03/26/19 04:30 POC ABG HCO3 26.1 (22-26 mml/L) 04/03/19 04:18 ABG HCO3 18.6 mmol/L (20.0-26.0) L 03/26/19 04:30 POC ABG Total CO2 27 (23-27mmol/L) 04/03/19 04:18 POC ABG O2 Sat 99 04/03/19 04:18 ABG O2 Saturation 98.6 % (95.0-99.0) 03/26/19 04:30 ABG O2 Content 13.7 (0.0-44) 03/26/19 04:30 POC ABG Base Excess 1 ((-2) - (+3)mmol/L) 04/03/19 04:18 ABG Base Excess -6.8 mmol/L (-2.0-3.0) L 03/26/19 04:30 ABG Hemoglobin 9.9 gm/dl (14.0-18.0) L 03/26/19 04:30 ABG Carboxyhemoglobin 1.4 % (0.0-5.0) 03/26/19 04:30 ABG Methemoglobin 0.6 % (0.0-1.5) 03/26/19 04:30 Oxyhemoglobin 96.5 % (95.0-99.0) 03/26/19 04:30 FiO2 40 % 04/03/19 04:18 Sodium 136 mmol/L (137-145) L 04/03/19 08:30 Potassium 4.2 mmol/L (3.6-5.0) 04/03/19 08:30 Chloride 97.0 mmol/L (98-107) L 04/03/19 08:30 Carbon Dioxide 23 mmol/L (22-30) 04/03/19 08:30 Anion Gap 20 mmol/L 04/03/19 08:30 BUN 58 mg/dL (9-20) H 04/03/19 08:30 Creatinine 7.3 mg/dL (0.8-1.5) H 04/03/19 08:30 Estimated GFR 10 ml/min 04/03/19 08:30 BUN/Creatinine Ratio 8 % 04/03/19 08:30 Glucose 93 mg/dL (75-100) 04/03/19 08:30 POC Glucose 86 (70-105) 04/03/19 11:48 Lactic Acid 1.90 mmol/L (0.7-2.0) 03/21/19 21:31 Calcium 7.5 mg/dL (8.4-10.2) L 04/03/19 08:30 Ionized Calcium 3.7 mg/dL (4.8-5.6) L 03/30/19 12:09 Phosphorus 5.80 mg/dL (2.5-4.5) H D 04/03/19 08:30 Magnesium 1.90 mg/dL (1.7-2.3) 03/31/19 15:07 Iron 26 ug/dL (49-181) L 04/02/19 05:03 TIBC 138 mcg/dL (250-450) L 04/02/19 05:03 Ferritin 607.0 ng/mL (13.0-400.0) H 04/02/19 05:03 Total Bilirubin 0.50 mg/dL (0.1-1.2) 03/31/19 08:20 Direct Bilirubin 0.4 mg/dL (0-0.2) H 03/31/19 08:20 Indirect Bilirubin 0.1 mg/dL 03/31/19 08:20 AST 60 units/L (5-40) H 03/31/19 08:20 ALT 30 units/L (7-56) 03/31/19 08:20 Alkaline Phosphatase 59 units/L (35-129) 03/31/19 08:20 Total Creatine Kinase 1652 units/L (55-170) H 04/01/19 04:27 CK-MB (CK-2) 54.3 ng/mL (0.0-4.0) H 03/17/19 07:16 CK-MB (CK-2) Rel Index 0.0 (0-4) 03/17/19 07:16 Troponin T 0.058 ng/mL (0.00-0.029) H 03/17/19 07:16 C-Reactive Protein 13.30 mg/dL (0.00-1.30) H 03/20/19 14:45 Total Protein 4.8 g/dL (6.3-8.2) L 03/31/19 08:20 Albumin 2.1 g/dL (3.9-5) L 03/31/19 08:20 Albumin/Globulin Ratio 0.8 % 03/31/19 08:20 Triglycerides 309 mg/dL (2-149) H 03/29/19 06:22 Cholesterol 88 mg/dL (50-199) 03/16/19 22:32 LDL Cholesterol Direct 10 mg/dL (50-130) L 03/16/19 22:32 HDL Cholesterol 7 mg/dL (40-59) L 03/16/19 22:32 Cholesterol/HDL Ratio 12.57 % 03/16/19 22:32 Procalcitonin 25.42 ng/mL (<0.15) 03/27/19 19:21 TSH 2.200 mlU/mL (0.270-4.200) 03/16/19 17:05 Free T4 0.72 ng/dL (0.76-1.46) L 03/16/19 17:05 PTH Intact 329.9 pg/mL (15-65) H 03/25/19 05:00 Urine Color Kathy (Yellow) 03/17/19 16:05 Urine Turbidity Cloudy (Clear) 03/17/19 16:05 Urine pH 5.0 (5.0-7.0) 03/17/19 16:05 Ur Specific [place] 1.014 (1.003-1.030) 03/17/19 16:05 Urine Protein >500 mg/dL (Negative) 03/17/19 16:05 Urine Glucose (UA) 50 mg/dL (Negative) 03/17/19 16:05 Urine Ketones Tr mg/dL (Negative) 03/17/19 16:05 Urine Blood Lg (Negative) 03/17/19 16:05 Urine Nitrite Neg (Negative) 03/17/19 16:05 Urine Bilirubin Neg (Negative) 03/17/19 16:05 Urine Urobilinogen < 2.0 mg/dL (<2.0) 03/17/19 16:05 Ur Leukocyte Esterase Mod (Negative) 03/17/19 16:05 Urine WBC (Auto) 30.0 /HPF (0.0-6.0) H 03/17/19 16:05 Urine RBC (Auto) 11.0 /HPF (0.0-6.0) 03/17/19 16:05 U Epithel Cells (Auto) < 1.0 /HPF (0-13.0) 03/17/19 16:05 Urine Mucus Few /HPF 03/17/19 16:05 Urine Sperm 2+ /HPF ([place]) 03/17/19 16:05 Urine Eosinophils None seen (None Seen) 03/17/19 16:05 Urine Creatinine 106.6 mg/dL (0.1-20.0) H 03/17/19 16:05 Urine Sodium 95 mmol/L 03/17/19 16:05 Vancomycin Trough 11.5 ug/mL (5.0-20.0) 03/18/19 13:19 Random Vancomycin 16.6 ug/mL (0-40.0) 03/30/19 04:31 Salicylates < 0.3 mg/dL (2.8-20.0) L 03/16/19 17:05 Urine Opiates Screen Presumptive negative 03/17/19 16:05 Urine Methadone Screen Presumptive negative 03/17/19 16:05 Acetaminophen < 5.0 ug/mL (10.0-30.0) L 03/16/19 17:05 Ur Barbiturates Screen Presumptive negative 03/17/19 16:05 Ur Phencyclidine Scrn Presumptive negative 03/17/19 16:05 Ur Amphetamines Screen Presumptive negative 03/17/19 16:05 U Benzodiazepines Scrn Presumptive positive 03/17/19 16:05 Urine Cocaine Screen Presumptive negative 03/17/19 16:05 U Marijuana (THC) Screen Presumptive negative 03/17/19 16:05 Drugs of Abuse Note Disclamer 03/17/19 16:05 Plasma/Serum Alcohol < 0.01 % (0-0.07) 03/16/19 17:05 Hepatitis A IgM Ab Non-reactive (NonReactive) 03/18/19 13:18 Hep Bs Antigen Non-reactive (Negative) 03/18/19 13:18 Hep B Core IgM Ab Non-reactive (NonReactive) 03/18/19 13:18 Hepatitis C Antibody Non-reactive (NonReactive) 03/18/19 13:18 HIV 1&2 Antibody Rapid Non react (Non React) 03/17/19 11:52 HIV P24 Antigen Non react (Non React) 03/17/19 11:52 Influenza A (Rapid) Negative (Negative) 03/17/19 17:00 Influenza B (Rapid) Negative (Negative) 03/17/19 17:00 Group A Strep Rapid Negative (Negative) 03/17/19 17:00 Miscellaneous Test Flexitest 1 03/21/19 12:00 Blood Type A POSITIVE 04/02/19 16:34 Antibody Screen Negative 04/02/19 16:34 Crossmatch See Detail 04/02/19 16:34 Active Medications - Current Medications Current Medications: Generic Name Dose Route Start Last Admin Trade Name Freq PRN Reason Stop Dose Admin Acetaminophen 650 mg 04/02/19 23:26 04/02/19 23:34 Tylenol PO 650 mg Q4H PRN Administration Pain, Mild (1-3),temp>100.5 Albuterol 2.5 mg 03/29/19 13:08 Proventil IH Q4HRT PRN Shortness Of Breath Lipase/Protease/Amylase 1 each 03/17/19 14:45 Pancreaze 10,500 Unit FEEDTUBE PRN PRN For Clogged Feeding Tube Calcium Acetate 1,334 mg 03/31/19 14:00 04/03/19 07:20 Phoslo PO Not Given TID PAOLO Dextrose 50 gm 03/19/19 18:39 03/26/19 23:26 D50w (25gm) Vial IV 50 gm PRN PRN Administration Hypoglycemia Epoetin Jet 20,000 unit 03/31/19 10:15 04/02/19 21:18 Procrit SUB-Q 20,000 unit NEYMAR PRN Administration hemodialysis Fentanyl 50 mcg 03/26/19 12:00 04/01/19 09:47 Sublimaze IV 50 mcg Q1H PRN Administration Pain, Moderate (4-6) Hydrophilic Ointment 1 applic 03/16/19 15:50 Vaseline Lip Therapy TP Q2HR PRN Dry Lips Phenylephrine HCl 100 mg/ 100 mls @ 3 mls/hr 03/17/19 02:30 03/19/19 18:48 Sodium Chloride IV Infused TITR PAOLO Titration Protocol 50 MCG/MIN Fentanyl Citrate 2,000 mcg in 100 mls @ 7.85 mls/hr 03/26/19 12:00 04/03/19 12:25 Fentanyl Drip Premix IV 1 mcg/kg/hr TITR PAOLO 7.85 mls/hr Administration Protocol 1 MCG/KG/HR Cefepime HCl 2 gm in 100 mls @ 200 mls/hr 03/27/19 14:00 04/02/19 16:02 Maxipime/Ns 2 Gm/100 Ml IV 200 mls/hr Q24H PAOLO Administration Protocol Norepinephrine 4 mg in 250 mls @ 7.5 mls/hr 03/27/19 22:16 04/03/19 12:24 Levophed Drip 4 Mg/Ns 250 Ml IV 2 mcg/min TITR PAOLO 7.5 mls/hr Titration Protocol 2 MCG/MIN Vasopressin 20 unit/ Sodium 101 mls @ 9.09 mls/hr 03/28/19 09:00 04/03/19 00:00 Chloride IV 0 units/min TITR PAOLO 0 mls/hr Titration Protocol 0.03 UNITS/MIN Amiodarone HCl 900 mg/ 500 mls @ 33.333 mls/hr 03/30/19 13:00 04/03/19 09:52 Dextrose IV 1 mg/min DIRECT PAOLO 33.333 mls/hr Administration Protocol 1 MG/MIN Sodium Chloride 100 mls @ 999 mls/hr 04/02/19 11:19 Nacl 0.9% IV NEYMAR PRN Hypotension Pantoprazole Sodium 80 mg/ 100 mls @ 10 mls/hr 04/02/19 13:00 04/03/19 10:54 Sodium Chloride IV 8 mg/hr DIRECT PAOLO 10 mls/hr Administration 8 MG/HR Lorazepam 2 mg 03/26/19 11:54 04/02/19 05:42 Ativan IV 2 mg Q1H PRN Administration Agitation Metoclopramide HCl 5 mg 04/02/19 18:00 04/03/19 12:25 Reglan IV 5 mg Q6HR PAOLO Administration Multi-Ingred Cream/Lotion/Oil/Oint 1 applic 03/16/19 15:50 03/19/19 20:10 Artificial Tears Ophth Oint OU 1 applic Q4HR PRN Administration Dry Eye(s) Ondansetron HCl 4 mg 03/16/19 22:21 Zofran IV Q8H PRN Nausea And Vomiting Paricalcitol 2 mcg 03/30/19 10:00 04/03/19 12:25 Zemplar IV 2 mcg DAILY PAOLO Administration Simple Syrup 15 ml 03/17/19 14:45 03/26/19 23:19 Simple Syrup FEEDTUBE 15 ml PRN PRN Administration Hypoglycemia Simple Syrup 30 ml 03/17/19 14:45 Simple Syrup FEEDTUBE PRN PRN Hypoglycemia Sodium Bicarbonate 325 mg 03/17/19 14:45 Sodium Bicarbonate FEEDTUBE PRN PRN For Clogged Feeding Tube Nutrition/Malnutrition Assess - Dietary Evaluation Nutrition/Malnutrition Findings: Nutrition Notes Start: 03/17/19 14:22 Freq: Status: Active Protocol: Document 04/02/19 11:48 LM (Rec: 04/02/19 11:57 LM [email or web address]) Nutrition Notes Initial or Follow up Reassessment Current Diagnosis Acute Kidney Injury Other Pertinent Diagnosis on HD, Septic shock,Multiple organ failure, encephalopathy, rhabdomyolysis Labs/Tests Na 136 BUN 82 Cr 8.2 Phos 7.5 Pertinent Medications Levophed Height 6 ft Weight 157.3 kg [place] Body Weight (kg) 80.90 BMI 47.0 Subjective/Other Information Per GI, GI bleed due to PUD. Pt remains NPO. Percent of energy/protein needs met: 0%/0% Burn Absent Trauma Absent Minimum of two criteria No #1 Nutrition Diagnosis Inadequate oral intake Diagnosis Progress(for reassessment Continues documentation) Is patient on ventilator? Yes Is Patient Ambulatory and/or Out of Bed No REE-([facility]-confined to bed) 2997.636 Kcal/Kg value to use for calculation 14 Approximate Energy Requirements Using 2202 kcal/Kg Calculation Used for Recommendations Kcal/kg Additional Notes Protein Needs: 202g (2.5g/kg IBW 80.9) Fluid Needs: 1 ml/kcal or per MD Nutrition Intervention Change Diet Order: Restart TF when medically feasible Nutrition Support: Nepro 1.8 at 55 ml/hr Flush 100 ml q4hr for hyponatremia Kcal 2,376 Protein (gm) 107 Fluid (mL) 960 Goal #1 TF restart when medically feasible Goal #2 Meet at least 75% of energy and protein needs Anticipated Discharge Needs: Unable to determine at this time Follow-Up By: 04/04/19 Additional Comments F/U for TF restart, POC
--- NOTE | 2019-04-03 16:00 | Progress Note ---
Assessment and Plan Cultures: 03/16/2019 sputum: salivary contamination 03/16/2019 Blood culture: no growth 03/17/2019 Urine culture no growth 03/17/2019 throat culture: no growth 03/26/2019 Blood culture: no growth so far 03/27/2019 Blood culture negative. Assessment: 43y/o male with possible psych history admitted on 03/16/2019 with: 1) Septic shock: pressors requirement is down. Only on one pressor. On amio gtt. Placed on multiple pressors on 03/28 due to acute GI bleed and severe Hg drop at 4.4. Noted fever 105 after right IJ exchanged overwire on 03/27, fever is better; leukocytosis improving. Fever source is unclear - suspect IJ DVT ?thrombophlebitis, other ?NMS ?sinusitis, ?drug fever. Repeat blood culture no growth so far. Brain MRI shows no acute intracranial abnormality, mild non specific chronic white matter changes, fluid throughout the sinuses and mastoid air cells. Venous US + right IJ DVT. Initial septic shock - Possible Infectious etiology v/s possibility of Neuroleptic Malignant Syndrome given psych history, high fever of 105F and extremely elevated CPK of >100K. Unclear if he was on any psych med. From ID standpoint, we will continue broad coverage for acute bacterial meningitis, tick borne illness, aspiration pneumonia. Blood culture negative UA with mild pyuria. HIV rapid negative. Strep A rapid ag negative. No obvious infectious source identified yet. 2) Probable aspiration pneumonia: Already completed adequate abx. 3) Acute respiratory failure: on the vent. Improving. 4) ?Right axillary edema: no abscess, US no collection seen 5) Acute encephalopathy: improving, communicating today heavily sedated. CT head showed diffuse cerebral edema ?artifact. But too unstable for LP at this time. Low suspicion for HSV meningoencephalitis given the degree of his initial shock and clinical status. Given nationwide acyclovir shortage and low suspicion, would not recommend IV Ganciclovir at this time. 6) Acute renal failure: renally dosing all abx, now on HD 7) Elevated LFTs/shock liver: also likely elevated from Rhabdomyolysis. Viral hepatitis panel negative. LFTs continue to improve. 8) Thrombocytopenia: multifactorial - better 9) Rhabdomyolysis: CK continues to improve 10) ?Enteritis: per CT ? no collection no perforation no obvious ischemic bowel. Gen. Surg following Recommendations: Ongoing fevers - continue cefepime to complete 10 days from 03/27 Wound care team consult - multiple skin abrasions Will follow. Katie Palmer MD [facility] ([facility]) M: [phone] O: [phone] F: [phone] Subjective Date of service: 04/03/19 Principal diagnosis: Septic Shock; Ac. hypoxemic resp failure; Renzo. PNA; Rhabdomyolysis; RUBEN Interval history: Febrile to 100.9 with a normal white count. No new issues. Objective - Exam Narrative Exam: General appearance: alert intubated opening eyes following commands Eyes: pupils renzo contracted poorly reactive, no jaundice HENT: Atraumatic; oropharynx with ETT/OGT Neck: no JVD Lungs:distant BS CV: RRR Abdomen: Soft, non-tender Extremities: marked renzo leg edema/arm edema Skin:no rash, +scrotal edema Psych: follows commands no agitated Neuro: follows commands no agitated Right IJ cath - Constitutional Vitals: Vital Signs Temp Pulse Resp BP Pulse Ox 99.8 F H 149 H 16 142/74 100 04/03/19 12:00 04/03/19 15:00 04/03/19 15:00 04/03/19 15:00 04/03/19 15:00 Temperature -Last 24 Hours Temperature 99.8 F Temperature 100.0 F Temperature 100.1 F Temperature 100.7 F Temperature 100.1 F Temperature 99.9 F Temperature 98.6 F Temperature 98.6 F Temperature 99.0 F Temperature 98.6 F Temperature 98.6 F - Labs CBC & Chem 7: 04/03/19 04:25 04/03/19 08:30 Labs: Abnormal lab results 03/28/19 04/02/19 04/02/19 Range/Units 10:00 16:34 17:14 RBC (3.65-5.03) M/mm3 Hgb (11.8-15.2) gm/dl Hct (35.5-45.6) % [place] % (Auto) (0.0-7.3) % Lymph # (1.2-5.4) K/mm3 Seg Neutrophils % (40.0-70.0) % POC ABG pO2 (80-105) Sodium (137-145) mmol/L Chloride (98-107) mmol/L BUN (9-20) mg/dL Creatinine (0.8-1.5) mg/dL POC Glucose 108 H (70-105) Calcium (8.4-10.2) mg/dL Phosphorus (2.5-4.5) mg/dL Crossmatch See Detail See Detail 04/03/19 04/03/19 04/03/19 Range/Units 04:18 04:25 08:30 RBC 2.40 L (3.65-5.03) M/mm3 Hgb 7.3 L (11.8-15.2) gm/dl Hct 21.9 L (35.5-45.6) % [place] % (Auto) 7.7 H (0.0-7.3) % Lymph # 0.9 L (1.2-5.4) K/mm3 Seg Neutrophils % 74.6 H (40.0-70.0) % POC ABG pO2 146 H (80-105) Sodium 136 L (137-145) mmol/L Chloride 97.0 L (98-107) mmol/L BUN 58 H (9-20) mg/dL Creatinine 7.3 H (0.8-1.5) mg/dL POC Glucose (70-105) Calcium 7.5 L (8.4-10.2) mg/dL Phosphorus 5.80 H D (2.5-4.5) mg/dL Crossmatch
[2019-04-03] MEDS: CEFEPIME/NS 2 GM/100 ML 2 GM/100 ML BAG IV SCH (16:30)
[2019-04-03] MEDS ORDERED: AMIODARONE 150 MG in DEXTROSE 5% IN WATER 97 ML IV ONE (18:00)
[2019-04-03] MEDS ORDERED: SODIUM FERRIC GLUCON/SUCRO 125 MG in SODIUM CHLORIDE 0.9% 100 ML IV ONE (22:15)
[2019-04-03 23:52] LABS: ABG HCO3 21.9 mmol/L (20.0-26.0); ABG Methemoglobin 0.6 % (0.0-1.5); ABG Oxygen Saturation 98.4 % (95.0-99.0); ABG PCO2 38.4 mm Hg; ABG PH 7.375 pH Units (7.350-7.450); ABG PO2 123.8 mm Hg (80.0-90.0)
[2019-04-04] MEDS: METOCLOPRAMIDE 10 MG/2 ML INJ IV SCH ×4 (01:24→18:56)
[2019-04-04] MEDS: fentaNYL DRIP Premix 2,000 MCG/100 ML BAG IV SCH ×3 (01:28→19:00)
[2019-04-04 05:03] LABS: Basophils # (Auto) 0.1 K/mm3 (0.0-0.1); Eosinophils # (Auto) 0.2 K/mm3 (0.0-0.4); Eosinophils % (Auto) 3.1 % (0.0-4.3); Hematocrit 24.7 % (35.5-45.6); Hemoglobin 8.3 gm/dl (11.8-15.2); Lymphocytes # (Auto) 0.8 K/mm3 (1.2-5.4); Lymphocytes % (Auto) 14.4 % (13.4-35.0); Mean Corpuscular HGB Conc 34 % (32-34); Mean Corpuscular Volume 91 fl (84-94); Monocytes # (Auto) 0.6 K/mm3 (0.0-0.8); Monocytes % (Auto) 10.1 % (0.0-7.3); Platelet Count 160 K/mm3 (140-440); Red Blood Count 2.72 M/mm3 (3.65-5.03); Red Cell Distribution Width 15.6 % (13.2-15.2)
[2019-04-04 05:22] LABS: Calcium 7.2 mg/dL (8.4-10.2)
--- NOTE | 2019-04-04 07:29 | Hem/Onc Progress Note ---
Assessment and Plan 1. h/o Anemia. The patient has history of bleeding. 2. Internal jugular partial thrombosis. The patient was started on heparin. This has been held due to bleeding 3. Gastrointestinal bleed. 4. h/o Elevated creatinine kinase. 5. h/o Low calcium. 6. h/o Thrombocytopenia. 7. h/o Renal failure. 8. Intubation. 9. Transfusion support. 10. Leukocytosis. At this time, supportive care may help the patient. The patient's platelet had been low at admission. Urine toxicology was negative. awake - on vent dvt - off anticoagulation - due to bleeding platelet better s/p iv iron trial - Patient Problems (1) DVT (deep venous thrombosis) Current Visit: Yes Status: Acute Subjective Date of service: 04/04/19 Principal diagnosis: IJ DVT - anemia - GI bleed Interval history: awake - on vent Objective - Exam Narrative Exam: Pain - intubated General appearance - awake - on vent Performance status complete dependence Eyes - no icterus ENT - intubated LNs cervical not palpable Neck - no LN Respiratory Normal Breath sounds - CTA anteriorly CVS S1 S2 + Extremities edema + General GI Soft Rectal deferred male - deferred Skin warm Musculoskeletal awake - on vent Neurologically awake - Constitutional Vitals: Last Vital Signs Temp 100.1 F H 04/04/19 04:00 Pulse 154 H 04/04/19 07:16 Resp 23 04/04/19 07:16 BP 129/60 04/04/19 07:16 Pulse Ox 97 04/04/19 07:16 - Labs Lab Results: Laboratory Results - last 24 hr 04/02/19 04/03/19 04/03/19 16:34 08:30 11:48 WBC RBC Hgb Hct MCV MCH MCHC RDW Plt Count Lymph % (Auto) [place] % (Auto) Eos % (Auto) Baso % (Auto) Lymph # [place] # Eos # Baso # Seg Neutrophils % Seg Neutrophils # ABG pH ABG pCO2 ABG pO2 ABG HCO3 ABG O2 Saturation ABG O2 Content ABG Base Excess ABG Hemoglobin ABG Carboxyhemoglobin ABG Methemoglobin Oxyhemoglobin FiO2 Sodium 136 L Potassium 4.2 Chloride 97.0 L Carbon Dioxide 23 Anion Gap 20 BUN 58 H Creatinine 7.3 H Estimated GFR 10 BUN/Creatinine Ratio 8 Glucose 93 POC Glucose 86 Calcium 7.5 L Phosphorus 5.80 H D Blood Type A POSITIVE Antibody Screen Negative Crossmatch See Detail 04/03/19 04/03/19 04/04/19 18:24 23:43 00:14 WBC RBC Hgb Hct MCV MCH MCHC RDW Plt Count Lymph % (Auto) [place] % (Auto) Eos % (Auto) Baso % (Auto) Lymph # [place] # Eos # Baso # Seg Neutrophils % Seg Neutrophils # ABG pH 7.375 ABG pCO2 38.4 ABG pO2 123.8 H ABG HCO3 21.9 ABG O2 Saturation 98.4 ABG O2 Content 11.0 ABG Base Excess -3.0 L ABG Hemoglobin 7.9 L ABG Carboxyhemoglobin 1.5 ABG Methemoglobin 0.6 Oxyhemoglobin 96.3 FiO2 35 Sodium Potassium Chloride Carbon Dioxide Anion Gap BUN Creatinine Estimated GFR BUN/Creatinine Ratio Glucose POC Glucose 106 H 102 Calcium Phosphorus Blood Type Antibody Screen Crossmatch 04/04/19 04/04/19 04/04/19 04:47 04:47 06:07 WBC 5.7 RBC 2.72 L Hgb 8.3 L Hct 24.7 L MCV 91 MCH 31 MCHC 34 RDW 15.6 H Plt Count 160 Lymph % (Auto) 14.4 [place] % (Auto) 10.1 H Eos % (Auto) 3.1 Baso % (Auto) 1.0 Lymph # 0.8 L [place] # 0.6 Eos # 0.2 Baso # 0.1 Seg Neutrophils % 71.4 H Seg Neutrophils # 4.0 ABG pH ABG pCO2 ABG pO2 ABG HCO3 ABG O2 Saturation ABG O2 Content ABG Base Excess ABG Hemoglobin ABG Carboxyhemoglobin ABG Methemoglobin Oxyhemoglobin FiO2 Sodium 134 L Potassium 4.4 Chloride 97.9 L Carbon Dioxide 23 Anion Gap 18 BUN 64 H Creatinine 8.1 H Estimated GFR 9 BUN/Creatinine Ratio 8 Glucose 96 POC Glucose 107 H Calcium 7.2 L Phosphorus Blood Type Antibody Screen Crossmatch Medications & Allergies - Medications Allergies/Adverse Reactions: Allergies No Known Allergies Allergy (Unverified 03/16/19 17:17) Home Medications: Home Medications Medication Instructions Recorded Confirmed Last Taken Type Unobtainable 03/18/19 03/18/19 Unknown History Active Medications: Generic Name Dose Route Start Last Admin Trade Name Freq PRN Reason Stop Dose Admin Acetaminophen 650 mg 04/02/19 23:26 04/02/19 23:34 Tylenol PO 650 mg Q4H PRN Administration Pain, Mild (1-3),temp>100.5 Albuterol 2.5 mg 03/29/19 13:08 Proventil IH Q4HRT PRN Shortness Of Breath Lipase/Protease/Amylase 1 each 03/17/19 14:[address] 10,500 Unit FEEDTUBE PRN PRN For Clogged Feeding Tube Calcium Acetate 1,334 mg 03/31/19 14:00 04/03/19 20:10 Phoslo PO 1,334 mg TID PAOLO Administration Dextrose 50 gm 03/19/19 18:39 03/26/19 23:26 D50w (25gm) Vial IV 50 gm PRN PRN Administration Hypoglycemia Epoetin Jet 20,000 unit 03/31/19 10:15 04/02/19 21:18 Procrit SUB-Q 20,000 unit NEYMAR PRN Administration hemodialysis Fentanyl 50 mcg 03/26/19 12:00 04/01/19 09:47 Sublimaze IV 50 mcg Q1H PRN Administration Pain, Moderate (4-6) Hydrophilic Ointment 1 applic 03/16/19 15:50 Vaseline Lip Therapy TP Q2HR PRN Dry Lips Phenylephrine HCl 100 mg/ 100 mls @ 3 mls/hr 03/17/19 02:30 03/19/19 18:48 Sodium Chloride IV Infused TITR PAOLO Titration Protocol 50 MCG/MIN Fentanyl Citrate 2,000 mcg in 100 mls @ 7.85 mls/hr 03/26/19 12:00 04/04/19 05:53 Fentanyl Drip Premix IV 2 mcg/kg/hr TITR PAOLO 15.7 mls/hr Titration Protocol 1 MCG/KG/HR Cefepime HCl 2 gm in 100 mls @ 200 mls/hr 03/27/19 14:00 04/03/19 16:30 Maxipime/Ns 2 Gm/100 Ml IV 04/05/19 14:29 200 mls/hr Q24H PAOLO Administration Protocol Norepinephrine 4 mg in 250 mls @ 7.5 mls/hr 03/27/19 22:16 04/03/19 15:00 Levophed Drip 4 Mg/Ns 250 Ml IV 0 mcg/min TITR PAOLO 0 mls/hr Titration Protocol 2 MCG/MIN Vasopressin 20 unit/ Sodium 101 mls @ 9.09 mls/hr 03/28/19 09:00 04/03/19 00:00 Chloride IV 0 units/min TITR PAOLO 0 mls/hr Titration Protocol 0.03 UNITS/MIN Amiodarone HCl 900 mg/ 500 mls @ 33.333 mls/hr 03/30/19 13:00 04/03/19 23:18 Dextrose IV 1 mg/min DIRECT PAOLO 33.333 mls/hr Administration Protocol 1 MG/MIN Sodium Chloride 100 mls @ 999 mls/hr 04/02/19 11:19 Nacl 0.9% IV NEYMAR PRN Hypotension Pantoprazole Sodium 80 mg/ 100 mls @ 10 mls/hr 04/02/19 13:00 04/03/19 23:18 Sodium Chloride IV 8 mg/hr DIRECT PAOLO 10 mls/hr Administration 8 MG/HR Lorazepam 2 mg 03/26/19 11:54 04/02/19 05:42 Ativan IV 2 mg Q1H PRN Administration Agitation Metoclopramide HCl 5 mg 04/02/19 18:00 04/04/19 07:21 Reglan IV 5 mg Q6HR PAOLO Administration Multi-Ingred Cream/Lotion/Oil/Oint 1 applic 03/16/19 15:50 03/19/19 20:10 Artificial Tears Ophth Oint OU 1 applic Q4HR PRN Administration Dry Eye(s) Ondansetron HCl 4 mg 03/16/19 22:21 Zofran IV Q8H PRN Nausea And Vomiting Paricalcitol 2 mcg 03/30/19 10:00 04/03/19 12:25 Zemplar IV 2 mcg DAILY PAOLO Administration Simple Syrup 15 ml 03/17/19 14:45 03/26/19 23:19 Simple Syrup FEEDTUBE 15 ml PRN PRN Administration Hypoglycemia Simple Syrup 30 ml 03/17/19 14:45 Simple Syrup FEEDTUBE PRN PRN Hypoglycemia Sodium Bicarbonate 325 mg 03/17/19 14:45 Sodium Bicarbonate FEEDTUBE PRN PRN For Clogged Feeding Tube
[2019-04-04] MEDS: ACETAMINOPHEN 325 MG TAB PO PRN ×2 (09:28→16:14)
[2019-04-04] MEDS: CALCIUM ACETATE 667 MG CAP PO SCH ×3 (09:28→22:09)
[2019-04-04] MEDS: PARICALCITOL 2 MCG/1 ML INJ IV SCH (09:29)
[2019-04-04] MEDS ORDERED: SODIUM CHLORIDE 0.9% 100 ML IV PRN (10:00)
--- NOTE | 2019-04-04 11:01 | Progress Note ---
Assessment and Plan Pt is tolerating PO intake today. Optimize HR - give additional IV amio bolus and initiate PO amio 400mg TID. D/c IV amio gtt following second dose of PO amio today. Cont PO lopressor as tolerated. No systemic AC regarding AFib in setting of anemia, thrombocytopenia, GI bleed. Continue supportive measures. Can consider ischemic evaluation if/when medically stabilized. Overall guarded prognosis. The patient has been seen in conjunction with Dr. Taylor who agrees with the assessment and plan of care. - Patient Problems (1) Cardiopulmonary arrest Current Visit: Yes Status: Acute (2) Acute respiratory failure Current Visit: Yes Status: Acute (3) Paroxysmal atrial fibrillation with RVR Current Visit: Yes Status: Acute (4) SVT (supraventricular tachycardia) Current Visit: Yes Status: Resolved (5) Torsades de pointes Current Visit: Yes Status: Acute (6) Ventricular tachycardia Current Visit: Yes Status: Acute (7) Encephalopathy Current Visit: Yes Status: Acute (8) Septic shock Current Visit: Yes Status: Acute (9) Aspiration pneumonia Current Visit: Yes Status: Acute (10) Meningitis Current Visit: Yes Status: Suspected (11) Cellulitis Current Visit: Yes Status: Acute (12) Acute renal failure Current Visit: Yes Status: Acute (13) GI bleed Current Visit: Yes Status: Acute (14) Anemia Current Visit: Yes Status: Acute (15) Thrombocytopenia Current Visit: Yes Status: Acute (16) DVT (deep venous thrombosis) Current Visit: Yes Status: Acute Subjective Date of service: 04/04/19 Principal diagnosis: Metabolic Encephalopathy, GI bleed Interval history: pt remains intubated, moving arms and legs, with some purposeful responses noted per neurology. in AFib with RVR HR 130s, amio gtt infusing. no family at bedside. Objective Last Vital Signs Temp 101.5 F H 04/04/19 08:00 Pulse 143 H 04/04/19 09:00 Resp 16 04/04/19 09:00 BP 130/60 04/04/19 09:00 Pulse Ox 100 04/04/19 09:00 - Physical Examination General: Other (intubated, sedated) HEENT: Positive: PERRL Neck: Positive: neck supple Cardiac: Positive: irregularly irregular, S1/S2, Tachycardia Lungs: Positive: Oxygen, Ventilated Respirations Neuro: Positive: Other (intubated) Abdomen: Positive: Unremarkable /Rectal: Other (deferred) Skin: Positive: Clear Musculoskeletal: Decreased Range of Motion Extremities: Present: lower extr. pulses (weak, thready ) - Labs and Meds CBC 04/04/19 Range/Units 04:47 WBC 5.7 (4.5-11.0) K/mm3 RBC 2.72 L (3.65-5.03) M/mm3 Hgb 8.3 L (11.8-15.2) gm/dl Hct 24.7 L (35.5-45.6) % Plt Count 160 (140-440) K/mm3 Lymph # 0.8 L (1.2-5.4) K/mm3 [place] # 0.6 (0.0-0.8) K/mm3 Eos # 0.2 (0.0-0.4) K/mm3 Baso # 0.1 (0.0-0.1) K/mm3 Comprehensive Metabolic Panel 04/04/19 Range/Units 04:47 Sodium 134 L (137-145) mmol/L Potassium 4.4 (3.6-5.0) mmol/L Chloride 97.9 L (98-107) mmol/L Carbon Dioxide 23 (22-30) mmol/L BUN 64 H (9-20) mg/dL Creatinine 8.1 H (0.8-1.5) mg/dL Glucose 96 (75-100) mg/dL Calcium 7.2 L (8.4-10.2) mg/dL - Imaging and Cardiology Echo: report reviewed ( EF 40-45%, impaired relaxation. ) - Allied health notes Allied health notes reviewed: nursing
[2019-04-04] MEDS ORDERED: AMIODARONE 150 MG in DEXTROSE 5% IN WATER 97 ML IV ONE (11:30)
--- NOTE | 2019-04-04 12:11 | Progress Note ---
Assessment and Plan 1. Acute kidney injury: Vasomotor RUBEN in the setting of shock / volume depletion / Rhabdo. Baseline renal function is unknown. CT abdomen was negative for obstructive nephropathy. Monitor renal function. Renal prognosis is guarded. Avoid nephrotoxic agents. Meds dosage based on GFR. Patient was started on hemodialysis on 03/18/19 due to worsening metabolic acidosis and hyperkalemia. Hemodialysis: 03/18, 03/19, 03/20, 03/22, 03/23, 03/24, 03/26, 03/28, 03/29, 03/31, 04/02, 04/04. 2. FEN: Hyperkalemia, improved. Hyponatremia, improved. Metabolic acidosis, on maintenance HD. Volume overload, UF with HD as tolerated. Hypocalcemia, likely multifactorial. On Phoslo and Zemplar. Monitor lytes. 3. Septic shock: Followed by ID. Currently on Levophed. 4. Rhabdomyolysis: CK level improving. 5. SVT / V.tach: Followed by Cards. 6. Respiratory failure: On vent. 7. Severe anemia: S/p PRBC. On Epogen. 8. Elevated transaminases. 9. Encephalopathy. Examination: General appearance: well-developed, appears stated age, obese, intubated, on vent HEENT: Atraumatic EYES: Pupils reacting to light Neck: supple Respiratory: coarse breath sounds Cardiology: irregular, S1S2 heard, no murmur Gastrointestinal: no tenderness, obese, BS heard Integumentary: no rash noted Neurologic: opens eyes Ext: 1+ edema of all 4 extremities Hemodialysis access: R IJ temp catheter Subjective Date of service: 04/04/19 Principal diagnosis: Metabolic Encephalopathy, GI bleed Interval history: Patient was seen and examined at the bedside. Remain on the vent. Objective - Vital Signs Vital signs: Vital Signs - 12hr 04/04/19 04/04/19 04/04/19 00:15 00:30 00:45 Temperature Pulse Rate 95 H 99 H 96 H Pulse Rate [ From Monitor] Respiratory 18 18 20 Rate Blood Pressure 141/67 143/68 130/67 O2 Sat by Pulse 99 98 99 Oximetry 04/04/19 04/04/19 04/04/19 01:00 01:15 01:30 Temperature Pulse Rate 95 H 98 H 93 H Pulse Rate [ From Monitor] Respiratory 16 19 13 Rate Blood Pressure 140/62 131/64 139/64 O2 Sat by Pulse 98 98 97 Oximetry 04/04/19 04/04/19 04/04/19 01:45 02:00 02:15 Temperature Pulse Rate 96 H 95 H 97 H Pulse Rate [ From Monitor] Respiratory 14 16 15 Rate Blood Pressure 136/63 127/63 133/67 O2 Sat by Pulse 98 98 98 Oximetry 04/04/19 04/04/19 04/04/19 02:30 02:45 03:00 Temperature Pulse Rate 93 H 95 H 94 H Pulse Rate [ From Monitor] Respiratory 16 15 14 Rate Blood Pressure 137/63 147/66 142/64 O2 Sat by Pulse 99 98 97 Oximetry 04/04/19 04/04/19 04/04/19 03:15 03:30 03:45 Temperature Pulse Rate 94 H 96 H 93 H Pulse Rate [ From Monitor] Respiratory 13 17 19 Rate Blood Pressure 138/62 146/64 135/64 O2 Sat by Pulse 97 98 98 Oximetry 04/04/19 04/04/19 04/04/19 04:00 04:15 04:30 Temperature 100.1 F H Pulse Rate 98 H 98 H 98 H Pulse Rate [ 110 H From Monitor] Respiratory 26 H 14 19 Rate Blood Pressure 148/67 148/67 143/69 O2 Sat by Pulse 99 99 100 Oximetry 04/04/19 04/04/19 04/04/19 04:45 05:00 05:15 Temperature Pulse Rate 96 H 104 H 95 H Pulse Rate [ From Monitor] Respiratory 14 20 14 Rate Blood Pressure 144/68 160/79 154/72 O2 Sat by Pulse 99 98 98 Oximetry 04/04/19 04/04/19 04/04/19 05:30 05:45 06:00 Temperature Pulse Rate 101 H 99 H 130 H Pulse Rate [ From Monitor] Respiratory 19 19 19 Rate Blood Pressure 173/81 175/76 160/76 O2 Sat by Pulse 99 99 97 Oximetry 04/04/19 04/04/19 04/04/19 06:16 06:30 06:46 Temperature Pulse Rate 134 H 155 H 151 H Pulse Rate [ From Monitor] Respiratory 15 16 31 H Rate Blood Pressure 160/70 160/70 O2 Sat by Pulse 98 98 86 Oximetry 04/04/19 04/04/19 04/04/19 07:00 07:16 07:30 Temperature Pulse Rate 148 H 154 H 136 H Pulse Rate [ From Monitor] Respiratory 22 23 17 Rate Blood Pressure 140/79 129/60 141/64 O2 Sat by Pulse 96 97 97 Oximetry 04/04/19 04/04/19 04/04/19 07:46 07:47 07:57 Temperature Pulse Rate 146 H 129 H Pulse Rate [ From Monitor] Respiratory 16 Rate Blood Pressure 114/61 114/61 O2 Sat by Pulse 98 97 99 Oximetry 04/04/19 04/04/19 04/04/19 08:00 08:15 08:30 Temperature 101.5 F H Pulse Rate 148 H 130 H 144 H Pulse Rate [ From Monitor] Respiratory 12 16 14 Rate Blood Pressure 119/68 123/55 114/57 O2 Sat by Pulse 99 99 100 Oximetry 04/04/19 04/04/19 04/04/19 08:45 09:00 11:59 Temperature Pulse Rate 132 H 143 H Pulse Rate [ From Monitor] Respiratory 14 16 Rate Blood Pressure 125/59 130/60 122/69 O2 Sat by Pulse 100 100 99 Oximetry - Lab 04/04/19 04:47 04/04/19 04:47 Most recent lab results ABG pH 7.375 pH Units (7.350-7.450) 04/03/19 23:43 ABG pCO2 38.4 mm Hg 04/03/19 23:43 ABG pO2 123.8 mm Hg (80.0-90.0) H 04/03/19 23:43 ABG HCO3 21.9 mmol/L (20.0-26.0) 04/03/19 23:43 ABG O2 Saturation 98.4 % (95.0-99.0) 04/03/19 23:43 Calcium 7.2 mg/dL (8.4-10.2) L 04/04/19 04:47 Phosphorus 5.80 mg/dL (2.5-4.5) H D 04/03/19 08:30 Magnesium 1.90 mg/dL (1.7-2.3) 03/31/19 15:07 Urine Creatinine 106.6 mg/dL (0.1-20.0) H 03/17/19 16:05 Urine Sodium 95 mmol/L 03/17/19 16:05 Medications & Allergies - Medications Allergies/Adverse Reactions: Allergies No Known Allergies Allergy (Unverified 03/16/19 17:17) Home Medications: Home Medications Medication Instructions Recorded Confirmed Last Taken Type Unobtainable 03/18/19 03/18/19 Unknown History Active Medications: Generic Name Dose Route Start Last Admin Trade Name Freq PRN Reason Stop Dose Admin Acetaminophen 650 mg 04/02/19 23:26 04/04/19 09:28 Tylenol PO 650 mg Q4H PRN Administration Pain, Mild (1-3),temp>100.5 Albuterol 2.5 mg 03/29/19 13:08 Proventil IH Q4HRT PRN Shortness Of Breath Amiodarone HCl 400 mg 04/04/19 12:00 Cordarone PO TID PAOLO Lipase/Protease/Amylase 1 each 03/17/19 14:[address] 10,500 Unit FEEDTUBE PRN PRN For Clogged Feeding Tube Calcium Acetate 1,334 mg 03/31/19 14:00 04/04/19 09:28 Phoslo PO 1,334 mg TID PAOLO Administration Dextrose 50 gm 03/19/19 18:39 03/26/19 23:26 D50w (25gm) Vial IV 50 gm PRN PRN Administration Hypoglycemia Epoetin Jet 20,000 unit 03/31/19 10:15 04/02/19 21:18 Procrit SUB-Q 20,000 unit NEYMAR PRN Administration hemodialysis Fentanyl 50 mcg 03/26/19 12:00 04/01/19 09:47 Sublimaze IV 50 mcg Q1H PRN Administration Pain, Moderate (4-6) Hydrophilic Ointment 1 applic 03/16/19 15:50 Vaseline Lip Therapy TP Q2HR PRN Dry Lips Phenylephrine HCl 100 mg/ 100 mls @ 3 mls/hr 03/17/19 02:30 03/19/19 18:48 Sodium Chloride IV Infused TITR PAOLO Titration Protocol 50 MCG/MIN Fentanyl Citrate 2,000 mcg in 100 mls @ 7.85 mls/hr 03/26/19 12:00 04/04/19 05:53 Fentanyl Drip Premix IV 2 mcg/kg/hr TITR PAOLO 15.7 mls/hr Titration Protocol 1 MCG/KG/HR Cefepime HCl 2 gm in 100 mls @ 200 mls/hr 03/27/19 14:00 04/03/19 16:30 Maxipime/Ns 2 Gm/100 Ml IV 04/05/19 14:29 200 mls/hr Q24H PAOLO Administration Protocol Norepinephrine 4 mg in 250 mls @ 7.5 mls/hr 03/27/19 22:16 04/03/19 15:00 Levophed Drip 4 Mg/Ns 250 Ml IV 0 mcg/min TITR PAOLO 0 mls/hr Titration Protocol 2 MCG/MIN Vasopressin 20 unit/ Sodium 101 mls @ 9.09 mls/hr 03/28/19 09:00 04/03/19 00:00 Chloride IV 0 units/min TITR PAOLO 0 mls/hr Titration Protocol 0.03 UNITS/MIN Amiodarone HCl 900 mg/ 500 mls @ 33.333 mls/hr 03/30/19 13:00 04/03/19 23:18 Dextrose IV 04/04/19 19:00 1 mg/min DIRECT PAOLO 33.333 mls/hr Administration Protocol 1 MG/MIN Pantoprazole Sodium 80 mg/ 100 mls @ 10 mls/hr 04/02/19 13:00 04/03/19 23:18 Sodium Chloride IV 04/04/19 12:59 8 mg/hr DIRECT PAOLO 10 mls/hr Administration 8 MG/HR Sodium Chloride 100 mls @ 999 mls/hr 04/04/19 10:00 Nacl 0.9% IV NEYMAR PRN Hypotension Lorazepam 2 mg 03/26/19 11:54 04/02/19 05:42 Ativan IV 2 mg Q1H PRN Administration Agitation Metoclopramide HCl 5 mg 04/02/19 18:00 04/04/19 07:21 Reglan IV 5 mg Q6HR PAOLO Administration Multi-Ingred Cream/Lotion/Oil/Oint 1 applic 03/16/19 15:50 03/19/19 20:10 Artificial Tears Ophth Oint OU 1 applic Q4HR PRN Administration Dry Eye(s) Ondansetron HCl 4 mg 03/16/19 22:21 Zofran IV Q8H PRN Nausea And Vomiting Pantoprazole Sodium 40 mg 04/04/19 22:00 Protonix IV BID PAOLO Paricalcitol 2 mcg 03/30/19 10:00 04/04/19 09:29 Zemplar IV 2 mcg DAILY PAOLO Administration Simple Syrup 15 ml 03/17/19 14:45 03/26/19 23:19 Simple Syrup FEEDTUBE 15 ml PRN PRN Administration Hypoglycemia Simple Syrup 30 ml 03/17/19 14:45 Simple Syrup FEEDTUBE PRN PRN Hypoglycemia Sodium Bicarbonate 325 mg 03/17/19 14:45 Sodium Bicarbonate FEEDTUBE PRN PRN For Clogged Feeding Tube
--- NOTE | 2019-04-04 13:00 | Progress Note ---
Assessment and Plan Severe sepsis with shock. Right axilla abscess versus localized pannus/fatty collection. Acute hypoxemic respiratory failure, on mechanical ventilator support. Likely aspiration pneumonia, bilateral. Morbid obesity. Rhabdomyolysis. Acute kidney injury. Leukocytosis. Morbid obesity. Metabolic acidosis. Lactic acidosis. Hypomagnesemia. Elevated serum transaminases/possible shock liver. Acute encephalopathy, toxic metabolic versus anoxic - advance tube feeds to goal rate as tolerated - discontinued metoprolol - continue low dose Reglan - continue prn albuterol treatments - prn tylenol suppositories for fevers - keep on PRVC/AC for now - continue to wean FiO2 for sats > 90% - continue to wean Levophed for target MAP > 65 mmHg - continue amiodarone drip for A-fib - continue HD/UF per nephrology prescription (3 Liters pulled yesterday) - VAP bundle addressed - continue daily SAT's and SBT assessment as tolerated - target sedation for RASS 0 to -1 - prn analgesia per CPOT score - continue HD/UF per nephrology prescription and for toxin and volume control - prn supportive blood transfusions to keep serum Hb > 7.0 - Monitor hemodynamics closely - Transfuse PRBC's to keep HgB > 7g/dL - continue empiric broad spectrum antiinfective's per ID recommendations (de- escalate based on clinical and microbiologic data) - continue mobility protocols and off loading as tolerated for pressure ulcer prophylaxis - continue to avoid nephrotoxins, adjust all medications for GFR and CRCL - continue GI & VTE prophylaxis with - accuchecks with glycemic control per SSI for target BG of 140-180 mg/dl acutely - continue other care per attending / other consultants ... re-evaluate in am & prn CONDITION: CRITICAL PROGNOSIS: VERY GUARDED CODE STATUS: DNR Discussed extensively with RT/RN and care team in ICU IDT rounds The high probability of a clinically significant, sudden or life threatening deterioration of the [respiratory, renal and Cardiac] system's' required my full and direct attention, intervention and personal management. The aggregate critical care time was 32 minutes. This time is in addition to time spent performing reported procedures but includes the following: [x] Data Review and interpretation [x] Patient assessment and monitoring of vital signs [x] Documentation [x] Medication orders and management Subjective Date of service: 04/04/19 Principal diagnosis: Septic Shock; Ac. hypoxemic resp failure; Renzo. PNA; Rhabdomyolysis; RUBEN Interval history: Patient is seen today for: Severe sepsis with shock; Acute hypoxemic respiratory failure; Aspiration pneumonia; Morbid obesity; Rhabdomyolysis; Acute kidney injury; Morbid obesity; Elevated serum transaminases/possible shock liver; Acute encephalopathy (Toxic/Met) Seen and examined at bedside; 24hour events reviewed; nursing and respiratory care staff consulted; no adverse overnight events reported to me; resting peacefully in bed; remains on MVS; tenuously tolerating bedside SBT's; follows simple commands; denies acute chest pains; No N/V/F/C Objective Vital Signs - 12hr 04/04/19 04/04/19 04/04/19 01:00 01:15 01:30 Temperature Pulse Rate 95 H 98 H 93 H Pulse Rate [ From Monitor] Respiratory 16 19 13 Rate Blood Pressure 140/62 131/64 139/64 O2 Sat by Pulse 98 98 97 Oximetry 04/04/19 04/04/19 04/04/19 01:45 02:00 02:15 Temperature Pulse Rate 96 H 95 H 97 H Pulse Rate [ From Monitor] Respiratory 14 16 15 Rate Blood Pressure 136/63 127/63 133/67 O2 Sat by Pulse 98 98 98 Oximetry 04/04/19 04/04/19 04/04/19 02:30 02:45 03:00 Temperature Pulse Rate 93 H 95 H 94 H Pulse Rate [ From Monitor] Respiratory 16 15 14 Rate Blood Pressure 137/63 147/66 142/64 O2 Sat by Pulse 99 98 97 Oximetry 04/04/19 04/04/19 04/04/19 03:15 03:30 03:45 Temperature Pulse Rate 94 H 96 H 93 H Pulse Rate [ From Monitor] Respiratory 13 17 19 Rate Blood Pressure 138/62 146/64 135/64 O2 Sat by Pulse 97 98 98 Oximetry 04/04/19 04/04/19 04/04/19 04:00 04:15 04:30 Temperature 100.1 F H Pulse Rate 98 H 98 H 98 H Pulse Rate [ 110 H From Monitor] Respiratory 26 H 14 19 Rate Blood Pressure 148/67 148/67 143/69 O2 Sat by Pulse 99 99 100 Oximetry 04/04/19 04/04/19 04/04/19 04:45 05:00 05:15 Temperature Pulse Rate 96 H 104 H 95 H Pulse Rate [ From Monitor] Respiratory 14 20 14 Rate Blood Pressure 144/68 160/79 154/72 O2 Sat by Pulse 99 98 98 Oximetry 04/04/19 04/04/19 04/04/19 05:30 05:45 06:00 Temperature Pulse Rate 101 H 99 H 130 H Pulse Rate [ From Monitor] Respiratory 19 19 19 Rate Blood Pressure 173/81 175/76 160/76 O2 Sat by Pulse 99 99 97 Oximetry 04/04/19 04/04/19 04/04/19 06:16 06:30 06:46 Temperature Pulse Rate 134 H 155 H 151 H Pulse Rate [ From Monitor] Respiratory 15 16 31 H Rate Blood Pressure 160/70 160/70 O2 Sat by Pulse 98 98 86 Oximetry 04/04/19 04/04/19 04/04/19 07:00 07:16 07:30 Temperature Pulse Rate 148 H 154 H 136 H Pulse Rate [ From Monitor] Respiratory 22 23 17 Rate Blood Pressure 140/79 129/60 141/64 O2 Sat by Pulse 96 97 97 Oximetry 04/04/19 04/04/19 04/04/19 07:46 07:47 07:57 Temperature Pulse Rate 146 H 129 H Pulse Rate [ From Monitor] Respiratory 16 Rate Blood Pressure 114/61 114/61 O2 Sat by Pulse 98 97 99 Oximetry 04/04/19 04/04/19 04/04/19 08:00 08:15 08:30 Temperature 101.5 F H Pulse Rate 148 H 130 H 144 H Pulse Rate [ From Monitor] Respiratory 12 16 14 Rate Blood Pressure 119/68 123/55 114/57 O2 Sat by Pulse 99 99 100 Oximetry 04/04/19 04/04/19 04/04/19 08:45 09:00 11:59 Temperature Pulse Rate 132 H 143 H Pulse Rate [ From Monitor] Respiratory 14 16 Rate Blood Pressure 125/59 130/60 122/69 O2 Sat by Pulse 100 100 99 Oximetry 04/04/19 12:00 Temperature 101.5 F H Pulse Rate Pulse Rate [ From Monitor] Respiratory Rate Blood Pressure O2 Sat by Pulse Oximetry Constitutional: no acute distress, other (middle aged morbidly obese CM, normocephalic with incresed respiratory effort on MVS) Eyes: icteric ENT: oropharynx moist, other (ETT 23-24 cm PEDRO, ulcers over his upper lip) Neck: supple, no lymphadenopathy, no JVD, other (large neck circumference) Effort: mildly labored Ascultation: Bilateral: diminished breath sounds, rales Percussion: Bilateral: not dull Cardiovascular: regular rate and rhythm, other ( S1,S2) Gastrointestinal: hypoactive bowel sounds, soft, non-tender, non-distended, other (obese) Integumentary: normal, other (blisters with some weeping over the extremities) Extremities: no cyanosis, pink and warm, pulses normal, no ischemia or petechiae Neurologic: normal mental status, non-focal exam (grossly), pupils equal and round, CN II-XII normal, other (obeys simple commands when SAT was done) Psychiatric: mood appropriate, affect normal CBC and BMP: 04/11/19 04:16 04/11/19 09:21 ABG, PT/INR, D-dimer: ABG POC ABG pH 7.383 (7.35-7.45) 04/03/19 04:18 ABG pH 7.375 pH Units (7.350-7.450) 04/03/19 23:43 POC ABG pCO2 43.9 (35-45) 04/03/19 04:18 ABG pCO2 38.4 mm Hg 04/03/19 23:43 POC ABG pO2 146 (80-105) H 04/03/19 04:18 ABG pO2 123.8 mm Hg (80.0-90.0) H 04/03/19 23:43 POC ABG HCO3 26.1 (22-26 mml/L) 04/03/19 04:18 POC ABG Total CO2 27 (23-27mmol/L) 04/03/19 04:18 POC ABG O2 Sat 99 04/03/19 04:18 ABG O2 Saturation 98.4 % (95.0-99.0) 04/03/19 23:43 PT/INR, D-dimer PT 15.3 Sec. (12.2-14.9) H 03/29/19 11:48 INR 1.24 (0.87-1.13) H 03/29/19 11:48 D-Dimer 4845.98 ng/mlDDU (0-234) H 03/28/19 12:00 Abnormal lab findings: Abnormal Labs 03/16/19 03/16/1903/16/19 15:32 16:03 16:05 WBC 27.0 H RBC 5.55 H Hgb 15.7 H Hct 47.1 H RDW Plt Count 75 L Lymph % (Auto) Bladen % (Auto) Lymph # Seg Neutrophils % Seg Neuts % (Manual) 85.0 H Lymphocytes % (Manual) 2.0 L Monocytes % (Manual) Nucleated RBC % Seg Neutrophils # Seg Neutrophils # Man 23.0 H Lymphocytes # (Manual) 0.5 L Monocytes # (Manual) PT INR D-Dimer Heparin Anti-Xa Level POC ABG pH ABG pH POC ABG pCO2 POC ABG pO2 ABG pO2 ABG HCO3 ABG O2 Saturation ABG Base Excess ABG Hemoglobin Oxyhemoglobin Sodium 127 L Potassium Chloride 87.8 L Carbon Dioxide 17 L BUN 49 H Creatinine 5.8 H Glucose 150 H POC Glucose 118 H Lactic Acid Calcium 6.6 L Ionized Calcium Phosphorus Magnesium 1.10 L Iron TIBC Ferritin Total Bilirubin Direct Bilirubin AST ALT Alkaline Phosphatase Total Creatine Kinase 74577 H CK-MB (CK-2) Troponin T C-Reactive Protein Total Protein Albumin Triglycerides LDL Cholesterol Direct HDL Cholesterol Free T4 PTH Intact Urine WBC (Auto) Urine Creatinine Salicylates Acetaminophen Crossmatch 03/16/19 03/16/19 03/16/19 16:59 17:05 17:05 WBC RBC Hgb Hct RDW Plt Count Lymph % (Auto) Bladen % (Auto) Lymph # Seg Neutrophils % Seg Neuts % (Manual) Lymphocytes % (Manual) Monocytes % (Manual) Nucleated RBC % Seg Neutrophils # Seg Neutrophils # Man Lymphocytes # (Manual) Monocytes # (Manual) PT INR D-Dimer Heparin Anti-Xa Level POC ABG pH 7.297 L ABG pH POC ABG pCO2 33.0 L POC ABG pO2 ABG pO2 ABG HCO3 ABG O2 Saturation ABG Base Excess ABG Hemoglobin Oxyhemoglobin Sodium Potassium Chloride Carbon Dioxide BUN Creatinine Glucose POC Glucose Lactic Acid Calcium Ionized Calcium Phosphorus Magnesium Iron TIBC Ferritin Total Bilirubin Direct Bilirubin AST ALT Alkaline Phosphatase Total Creatine Kinase 01504 H CK-MB (CK-2) 83.1 H Troponin T C-Reactive Protein Total Protein Albumin Triglycerides LDL Cholesterol Direct HDL Cholesterol Free T4 0.72 L PTH Intact Urine WBC (Auto) Urine Creatinine Salicylates Acetaminophen Crossmatch 03/16/19 03/16/19 03/16/19 17:05 17:05 17:05 WBC RBC Hgb Hct RDW Plt Count Lymph % (Auto) Bladen % (Auto) Lymph # Seg Neutrophils % Seg Neuts % (Manual) Lymphocytes % (Manual) Monocytes % (Manual) Nucleated RBC % Seg Neutrophils # Seg Neutrophils # Man Lymphocytes # (Manual) Monocytes # (Manual) PT INR D-Dimer Heparin Anti-Xa Level POC ABG pH ABG pH POC ABG pCO2 POC ABG pO2 ABG pO2 ABG HCO3 ABG O2 Saturation ABG Base Excess ABG Hemoglobin Oxyhemoglobin Sodium Potassium Chloride Carbon Dioxide BUN Creatinine Glucose POC Glucose Lactic Acid 5.10 H* Calcium Ionized Calcium Phosphorus Magnesium Iron TIBC Ferritin Total Bilirubin Direct Bilirubin AST ALT Alkaline Phosphatase Total Creatine Kinase CK-MB (CK-2) Troponin T C-Reactive Protein Total Protein Albumin Triglycerides LDL Cholesterol Direct HDL Cholesterol Free T4 PTH Intact Urine WBC (Auto) Urine Creatinine Salicylates < 0.3 L Acetaminophen < 5.0 L Crossmatch 03/16/19 03/16/19 03/16/19 17:05 17:05 20:35 WBC RBC Hgb Hct RDW Plt Count Lymph % (Auto) Bladen % (Auto) Lymph # Seg Neutrophils % Seg Neuts % (Manual) Lymphocytes % (Manual) Monocytes % (Manual) Nucleated RBC % Seg Neutrophils # Seg Neutrophils # Man Lymphocytes # (Manual) Monocytes # (Manual) PT 15.9 H INR 1.30 H D-Dimer Heparin Anti-Xa Level POC ABG pH ABG pH POC ABG pCO2 POC ABG pO2 ABG pO2 ABG HCO3 ABG O2 Saturation ABG Base Excess ABG Hemoglobin Oxyhemoglobin Sodium Potassium Chloride Carbon Dioxide BUN Creatinine Glucose POC Glucose Lactic Acid 3.30 H* Calcium Ionized Calcium Phosphorus Magnesium Iron TIBC Ferritin Total Bilirubin 6.20 H Direct Bilirubin 5.9 H AST 800 H ALT 120 H Alkaline Phosphatase Total Creatine Kinase CK-MB (CK-2) Troponin T C-Reactive Protein Total Protein 4.4 L Albumin 2.4 L Triglycerides LDL Cholesterol Direct HDL Cholesterol Free T4 PTH Intact Urine WBC (Auto) Urine Creatinine Salicylates Acetaminophen Crossmatch 03/16/19 03/16/19 03/16/19 21:45 22:32 Unknown WBC RBC Hgb Hct RDW Plt Count Lymph % (Auto) Bladen % (Auto) Lymph # Seg Neutrophils % Seg Neuts % (Manual) Lymphocytes % (Manual) Monocytes % (Manual) Nucleated RBC % Seg Neutrophils # Seg Neutrophils # Man Lymphocytes # (Manual) Monocytes # (Manual) PT INR D-Dimer Heparin Anti-Xa Level POC ABG pH ABG pH POC ABG pCO2 POC ABG pO2 ABG pO2 ABG HCO3 ABG O2 Saturation ABG Base Excess ABG Hemoglobin Oxyhemoglobin Sodium Potassium Chloride Carbon Dioxide BUN Creatinine Glucose POC Glucose Lactic Acid 3.30 H* 3.00 H* Calcium Ionized Calcium Phosphorus Magnesium Iron TIBC Ferritin Total Bilirubin Direct Bilirubin AST ALT Alkaline Phosphatase Total Creatine Kinase CK-MB (CK-2) Troponin T 0.047 H D C-Reactive Protein Total Protein Albumin Triglycerides 395 H LDL Cholesterol Direct 10 L HDL Cholesterol 7 L Free T4 PTH Intact Urine WBC (Auto) Urine Creatinine Salicylates Acetaminophen Crossmatch 03/17/19 03/17/19 03/17/19 03:45 03:45 03:45 WBC RBC Hgb Hct RDW Plt Count Lymph % (Auto) Bladen % (Auto) Lymph # Seg Neutrophils % Seg Neuts % (Manual) Lymphocytes % (Manual) Monocytes % (Manual) Nucleated RBC % Seg Neutrophils # Seg Neutrophils # Man Lymphocytes # (Manual) Monocytes # (Manual) PT INR D-Dimer Heparin Anti-Xa Level POC ABG pH ABG pH POC ABG pCO2 POC ABG pO2 ABG pO2 ABG HCO3 ABG O2 Saturation ABG Base Excess ABG Hemoglobin Oxyhemoglobin Sodium 131 L Potassium Chloride 88.9 L Carbon Dioxide BUN 53 H Creatinine 7.1 H Glucose POC Glucose Lactic Acid 4.10 H* Calcium 5.4 L* D Ionized Calcium Phosphorus 7.30 H Magnesium 1.60 L Iron TIBC Ferritin Total Bilirubin 5.90 H Direct Bilirubin AST 801 H ALT 109 H Alkaline Phosphatase Total Creatine Kinase 64278 H 12570 H CK-MB (CK-2) 41.5 H Troponin T 0.054 H C-Reactive Protein Total Protein 4.5 L Albumin 2.0 L Triglycerides LDL Cholesterol Direct HDL Cholesterol Free T4 PTH Intact Urine WBC (Auto) Urine Creatinine Salicylates Acetaminophen Crossmatch 03/17/19 03/17/19 03/17/19 05:47 07:16 07:16 WBC RBC Hgb Hct RDW Plt Count Lymph % (Auto) Bladen % (Auto) Lymph # Seg Neutrophils % Seg Neuts % (Manual) Lymphocytes % (Manual) Monocytes % (Manual) Nucleated RBC % Seg Neutrophils # Seg Neutrophils # Man Lymphocytes # (Manual) Monocytes # (Manual) PT INR D-Dimer Heparin Anti-Xa Level POC ABG pH 7.193 L ABG pH POC ABG pCO2 45.2 H POC ABG pO2 65 L ABG pO2 ABG HCO3 ABG O2 Saturation ABG Base Excess ABG Hemoglobin Oxyhemoglobin Sodium Potassium Chloride Carbon Dioxide BUN Creatinine Glucose POC Glucose Lactic Acid 5.50 H* Calcium Ionized Calcium Phosphorus Magnesium Iron TIBC Ferritin Total Bilirubin Direct Bilirubin AST ALT Alkaline Phosphatase Total Creatine Kinase 80589 H CK-MB (CK-2) 54.3 H Troponin T 0.058 H C-Reactive Protein Total Protein Albumin Triglycerides LDL Cholesterol Direct HDL Cholesterol Free T4 PTH Intact Urine WBC (Auto) Urine Creatinine Salicylates Acetaminophen Crossmatch 03/17/19 03/17/19 03/17/19 11:52 12:51 13:01 WBC RBC Hgb Hct RDW Plt Count Lymph % (Auto) Bladen % (Auto) Lymph # Seg Neutrophils % Seg Neuts % (Manual) Lymphocytes % (Manual) Monocytes % (Manual) Nucleated RBC % Seg Neutrophils # Seg Neutrophils # Man Lymphocytes # (Manual) Monocytes # (Manual) PT INR D-Dimer Heparin Anti-Xa Level POC ABG pH 7.154 L ABG pH POC ABG pCO2 34.3 L POC ABG pO2 73 L ABG pO2 ABG HCO3 ABG O2 Saturation ABG Base Excess ABG Hemoglobin Oxyhemoglobin Sodium Potassium Chloride Carbon Dioxide BUN Creatinine Glucose POC Glucose 60 L Lactic Acid 8.20 H* Calcium Ionized Calcium Phosphorus Magnesium Iron TIBC Ferritin Total Bilirubin Direct Bilirubin AST ALT Alkaline Phosphatase Total Creatine Kinase CK-MB (CK-2) Troponin T C-Reactive Protein Total Protein Albumin Triglycerides LDL Cholesterol Direct HDL Cholesterol Free T4 PTH Intact Urine WBC (Auto) Urine Creatinine Salicylates Acetaminophen Crossmatch 03/17/19 03/17/19 03/17/19 14:37 14:37 14:37 WBC 29.3 H RBC Hgb Hct RDW 15.8 H Plt Count 45 L Lymph % (Auto) Bladen % (Auto) Lymph # Seg Neutrophils % Seg Neuts % (Manual) 81.0 H Lymphocytes % (Manual) 1.0 L Monocytes % (Manual) 15.0 H Nucleated RBC % Seg Neutrophils # Seg Neutrophils # Man 23.7 H Lymphocytes # (Manual) 0.3 L Monocytes # (Manual) 4.4 H PT INR D-Dimer Heparin Anti-Xa Level POC ABG pH ABG pH POC ABG pCO2 POC ABG pO2 ABG pO2 ABG HCO3 ABG O2 Saturation ABG Base Excess ABG Hemoglobin Oxyhemoglobin Sodium Potassium Chloride Carbon Dioxide BUN Creatinine Glucose POC Glucose Lactic Acid 4.90 H* Calcium Ionized Calcium Phosphorus Magnesium Iron TIBC Ferritin Total Bilirubin Direct Bilirubin AST ALT Alkaline Phosphatase Total Creatine Kinase CK-MB (CK-2) Troponin T C-Reactive Protein 24.90 H Total Protein Albumin Triglycerides LDL Cholesterol Direct HDL Cholesterol Free T4 PTH Intact Urine WBC (Auto) Urine Creatinine Salicylates Acetaminophen Crossmatch 03/17/19 03/17/19 03/17/19 16:05 16:05 17:02 WBC RBC Hgb Hct RDW Plt Count Lymph % (Auto) Bladen % (Auto) Lymph # Seg Neutrophils % Seg Neuts % (Manual) Lymphocytes % (Manual) Monocytes % (Manual) Nucleated RBC % Seg Neutrophils # Seg Neutrophils # Man Lymphocytes # (Manual) Monocytes # (Manual) PT INR D-Dimer Heparin Anti-Xa Level POC ABG pH 7.183 L ABG pH POC ABG pCO2 POC ABG pO2 65 L ABG pO2 ABG HCO3 ABG O2 Saturation ABG Base Excess ABG Hemoglobin Oxyhemoglobin Sodium Potassium Chloride Carbon Dioxide BUN Creatinine Glucose POC Glucose Lactic Acid Calcium Ionized Calcium Phosphorus Magnesium Iron TIBC Ferritin Total Bilirubin Direct Bilirubin AST ALT Alkaline Phosphatase Total Creatine Kinase CK-MB (CK-2) Troponin T C-Reactive Protein Total Protein Albumin Triglycerides LDL Cholesterol Direct HDL Cholesterol Free T4 PTH Intact Urine WBC (Auto) 30.0 H Urine Creatinine 106.6 H Salicylates Acetaminophen Crossmatch 03/18/19 03/18/19 03/18/19 05:12 05:16 05:53 WBC RBC Hgb Hct RDW Plt Count Lymph % (Auto) Bladen % (Auto) Lymph # Seg Neutrophils % Seg Neuts % (Manual) Lymphocytes % (Manual) Monocytes % (Manual) Nucleated RBC % Seg Neutrophils # Seg Neutrophils # Man Lymphocytes # (Manual) Monocytes # (Manual) PT INR D-Dimer Heparin Anti-Xa Level POC ABG pH 7.257 L ABG pH POC ABG pCO2 31.6 L POC ABG pO2 69 L ABG pO2 ABG HCO3 ABG O2 Saturation ABG Base Excess ABG Hemoglobin Oxyhemoglobin Sodium Potassium Chloride Carbon Dioxide BUN Creatinine Glucose POC Glucose 141 H Lactic Acid 5.00 H* Calcium Ionized Calcium Phosphorus Magnesium Iron TIBC Ferritin Total Bilirubin Direct Bilirubin AST ALT Alkaline Phosphatase Total Creatine Kinase CK-MB (CK-2) Troponin T C-Reactive Protein Total Protein Albumin Triglycerides LDL Cholesterol Direct HDL Cholesterol Free T4 PTH Intact Urine WBC (Auto) Urine Creatinine Salicylates Acetaminophen Crossmatch 03/18/19 03/18/19 03/18/19 06:57 08:40 08:40 WBC 31.7 H RBC Hgb Hct RDW 15.5 H Plt Count 35 L Lymph % (Auto) Bladen % (Auto) Lymph # Seg Neutrophils % Seg Neuts % (Manual) Lymphocytes % (Manual) Monocytes % (Manual) Nucleated RBC % Seg Neutrophils # Seg Neutrophils # Man Lymphocytes # (Manual) Monocytes # (Manual) PT INR D-Dimer Heparin Anti-Xa Level POC ABG pH ABG pH POC ABG pCO2 POC ABG pO2 ABG pO2 ABG HCO3 ABG O2 Saturation ABG Base Excess ABG Hemoglobin Oxyhemoglobin Sodium 132 L Potassium 5.5 H D Chloride 88.5 L Carbon Dioxide 18 L BUN 71 H Creatinine 8.1 H Glucose 205 H POC Glucose Lactic Acid 5.00 H* Calcium 4.1 L* D Ionized Calcium Phosphorus Magnesium 2.40 H Iron TIBC Ferritin Total Bilirubin 7.50 H Direct Bilirubin AST 1088 H ALT 159 H Alkaline Phosphatase 190 H Total Creatine Kinase 831715 H CK-MB (CK-2) Troponin T C-Reactive Protein Total Protein 4.7 L Albumin 1.8 L Triglycerides LDL Cholesterol Direct HDL Cholesterol Free T4 PTH Intact Urine WBC (Auto) Urine Creatinine Salicylates Acetaminophen Crossmatch 03/18/19 03/18/19 03/18/19 12:33 12:50 13:19 WBC RBC Hgb Hct RDW Plt Count Lymph % (Auto) Bladen % (Auto) Lymph # Seg Neutrophils % Seg Neuts % (Manual) Lymphocytes % (Manual) Monocytes % (Manual) Nucleated RBC % Seg Neutrophils # Seg Neutrophils # Man Lymphocytes # (Manual) Monocytes # (Manual) PT INR D-Dimer Heparin Anti-Xa Level POC ABG pH 7.282 L ABG pH POC ABG pCO2 POC ABG pO2 67 L ABG pO2 ABG HCO3 ABG O2 Saturation ABG Base Excess ABG Hemoglobin Oxyhemoglobin Sodium Potassium Chloride Carbon Dioxide BUN Creatinine Glucose POC Glucose 129 H Lactic Acid 3.30 H* Calcium Ionized Calcium Phosphorus Magnesium Iron TIBC Ferritin Total Bilirubin Direct Bilirubin AST ALT Alkaline Phosphatase Total Creatine Kinase CK-MB (CK-2) Troponin T C-Reactive Protein Total Protein Albumin Triglycerides LDL Cholesterol Direct HDL Cholesterol Free T4 PTH Intact Urine WBC (Auto) Urine Creatinine Salicylates Acetaminophen Crossmatch 03/18/19 03/18/19 03/18/19 13:19 16:50 18:11 WBC RBC Hgb Hct RDW Plt Count Lymph % (Auto) Bladen % (Auto) Lymph # Seg Neutrophils % Seg Neuts % (Manual) Lymphocytes % (Manual) Monocytes % (Manual) Nucleated RBC % Seg Neutrophils # Seg Neutrophils # Man Lymphocytes # (Manual) Monocytes # (Manual) PT INR D-Dimer Heparin Anti-Xa Level POC ABG pH ABG pH POC ABG pCO2 POC ABG pO2 59 L ABG pO2 ABG HCO3 ABG O2 Saturation ABG Base Excess ABG Hemoglobin Oxyhemoglobin Sodium Potassium Chloride Carbon Dioxide BUN Creatinine Glucose POC Glucose 151 H Lactic Acid Calcium 4.2 L* Ionized Calcium Phosphorus Magnesium Iron TIBC Ferritin Total Bilirubin Direct Bilirubin AST ALT Alkaline Phosphatase Total Creatine Kinase 949816 H CK-MB (CK-2) Troponin T C-Reactive Protein Total Protein Albumin Triglycerides LDL Cholesterol Direct HDL Cholesterol Free T4 PTH Intact Urine WBC (Auto) Urine Creatinine Salicylates Acetaminophen Crossmatch 03/18/19 03/18/19 03/19/19 18:20 23:39 01:42 WBC RBC Hgb Hct RDW Plt Count Lymph % (Auto) Bladen % (Auto) Lymph # Seg Neutrophils % Seg Neuts % (Manual) Lymphocytes % (Manual) Monocytes % (Manual) Nucleated RBC % Seg Neutrophils # Seg Neutrophils # Man Lymphocytes # (Manual) Monocytes # (Manual) PT INR D-Dimer Heparin Anti-Xa Level POC ABG pH 7.345 L ABG pH 7.285 L POC ABG pCO2 POC ABG pO2 59 L ABG pO2 44.0 L ABG HCO3 ABG O2 Saturation 70.9 L ABG Base Excess -5.7 L ABG Hemoglobin 11.9 L Oxyhemoglobin 69.6 L Sodium Potassium Chloride Carbon Dioxide BUN Creatinine Glucose POC Glucose 152 H Lactic Acid Calcium Ionized Calcium Phosphorus Magnesium Iron TIBC Ferritin Total Bilirubin Direct Bilirubin AST ALT Alkaline Phosphatase Total Creatine Kinase CK-MB (CK-2) Troponin T C-Reactive Protein Total Protein Albumin Triglycerides LDL Cholesterol Direct HDL Cholesterol Free T4 PTH Intact Urine WBC (Auto) Urine Creatinine Salicylates Acetaminophen Crossmatch 03/19/19 03/19/19 03/19/19 04:00 04:00 05:35 WBC 36.5 H RBC Hgb Hct RDW 15.8 H Plt Count 35 L Lymph % (Auto) Bladen % (Auto) Lymph # Seg Neutrophils % Seg Neuts % (Manual) Lymphocytes % (Manual) Monocytes % (Manual) Nucleated RBC % Seg Neutrophils # Seg Neutrophils # Man Lymphocytes # (Manual) Monocytes # (Manual) PT INR D-Dimer Heparin Anti-Xa Level POC ABG pH ABG pH 7.265 L POC ABG pCO2 POC ABG pO2 ABG pO2 35.4 L* ABG HCO3 ABG O2 Saturation 54.4 L ABG Base Excess -6.7 L ABG Hemoglobin 12.9 L Oxyhemoglobin 53.4 L Sodium 132 L Potassium 5.7 H Chloride 89.8 L Carbon Dioxide 19 L BUN 62 H Creatinine 6.4 H Glucose 151 H POC Glucose Lactic Acid Calcium 5.2 L* D Ionized Calcium Phosphorus Magnesium Iron TIBC Ferritin Total Bilirubin 7.80 H Direct Bilirubin AST 682 H ALT 130 H Alkaline Phosphatase 167 H Total Creatine Kinase CK-MB (CK-2) Troponin T C-Reactive Protein Total Protein 4.8 L Albumin 2.3 L Triglycerides LDL Cholesterol Direct HDL Cholesterol Free T4 PTH Intact Urine WBC (Auto) Urine Creatinine Salicylates Acetaminophen Crossmatch 03/19/19 03/19/19 03/19/19 05:49 09:16 09:50 WBC RBC Hgb Hct RDW Plt Count Lymph % (Auto) Bladen % (Auto) Lymph # Seg Neutrophils % Seg Neuts % (Manual) Lymphocytes % (Manual) Monocytes % (Manual) Nucleated RBC % Seg Neutrophils # Seg Neutrophils # Man Lymphocytes # (Manual) Monocytes # (Manual) PT INR D-Dimer Heparin Anti-Xa Level POC ABG pH 7.222 L ABG pH POC ABG pCO2 56.6 H POC ABG pO2 ABG pO2 ABG HCO3 ABG O2 Saturation ABG Base Excess ABG Hemoglobin Oxyhemoglobin Sodium Potassium Chloride Carbon Dioxide BUN Creatinine Glucose POC Glucose 154 H Lactic Acid 2.70 H* Calcium Ionized Calcium Phosphorus Magnesium Iron TIBC Ferritin Total Bilirubin Direct Bilirubin AST ALT Alkaline Phosphatase Total Creatine Kinase CK-MB (CK-2) Troponin T C-Reactive Protein Total Protein Albumin Triglycerides LDL Cholesterol Direct HDL Cholesterol Free T4 PTH Intact Urine WBC (Auto) Urine Creatinine Salicylates Acetaminophen Crossmatch 03/19/19 03/19/19 03/19/19 09:50 11:28 17:58 WBC RBC Hgb Hct RDW Plt Count Lymph % (Auto) Bladen % (Auto) Lymph # Seg Neutrophils % Seg Neuts % (Manual) Lymphocytes % (Manual) Monocytes % (Manual) Nucleated RBC % Seg Neutrophils # Seg Neutrophils # Man Lymphocytes # (Manual) Monocytes # (Manual) PT INR D-Dimer Heparin Anti-Xa Level POC ABG pH 7.250 L ABG pH POC ABG pCO2 52.6 H POC ABG pO2 ABG pO2 ABG HCO3 ABG O2 Saturation ABG Base Excess ABG Hemoglobin Oxyhemoglobin Sodium Potassium Chloride Carbon Dioxide BUN Creatinine Glucose POC Glucose 160 H Lactic Acid Calcium Ionized Calcium Phosphorus Magnesium Iron TIBC Ferritin Total Bilirubin Direct Bilirubin AST ALT Alkaline Phosphatase Total Creatine Kinase 95519 H CK-MB (CK-2) Troponin T C-Reactive Protein Total Protein Albumin Triglycerides LDL Cholesterol Direct HDL Cholesterol Free T4 PTH Intact Urine WBC (Auto) Urine Creatinine Salicylates Acetaminophen Crossmatch 03/19/19 03/19/19 03/20/19 19:48 21:03 02:16 WBC RBC Hgb Hct RDW Plt Count Lymph % (Auto) Bladen % (Auto) Lymph # Seg Neutrophils % Seg Neuts % (Manual) Lymphocytes % (Manual) Monocytes % (Manual) Nucleated RBC % Seg Neutrophils # Seg Neutrophils # Man Lymphocytes # (Manual) Monocytes # (Manual) PT INR D-Dimer Heparin Anti-Xa Level POC ABG pH 7.279 L ABG pH POC ABG pCO2 50.3 H POC ABG pO2 129 H ABG pO2 ABG HCO3 ABG O2 Saturation ABG Base Excess ABG Hemoglobin Oxyhemoglobin Sodium Potassium Chloride Carbon Dioxide BUN Creatinine Glucose POC Glucose 119 H 119 H Lactic Acid Calcium Ionized Calcium Phosphorus Magnesium Iron TIBC Ferritin Total Bilirubin Direct Bilirubin AST ALT Alkaline Phosphatase Total Creatine Kinase CK-MB (CK-2) Troponin T C-Reactive Protein Total Protein Albumin Triglycerides LDL Cholesterol Direct HDL Cholesterol Free T4 PTH Intact Urine WBC (Auto) Urine Creatinine Salicylates Acetaminophen Crossmatch 03/20/19 03/20/19 03/20/19 04:23 05:05 09:30 WBC 36.3 H RBC Hgb Hct RDW 15.5 H Plt Count 29 L Lymph % (Auto) [place] % (Auto) Lymph # Seg Neutrophils % Seg Neuts % (Manual) Lymphocytes % (Manual) Monocytes % (Manual) Nucleated RBC % Seg Neutrophils # Seg Neutrophils # Man Lymphocytes # (Manual) Monocytes # (Manual) PT INR D-Dimer Heparin Anti-Xa Level POC ABG pH ABG pH POC ABG pCO2 POC ABG pO2 280 H ABG pO2 ABG HCO3 ABG O2 Saturation ABG Base Excess ABG Hemoglobin Oxyhemoglobin Sodium Potassium Chloride Carbon Dioxide BUN Creatinine Glucose POC Glucose 115 H Lactic Acid Calcium Ionized Calcium Phosphorus Magnesium Iron TIBC Ferritin Total Bilirubin Direct Bilirubin AST ALT Alkaline Phosphatase Total Creatine Kinase CK-MB (CK-2) Troponin T C-Reactive Protein Total Protein Albumin Triglycerides LDL Cholesterol Direct HDL Cholesterol Free T4 PTH Intact Urine WBC (Auto) Urine Creatinine Salicylates Acetaminophen Crossmatch 03/20/19 03/20/19 03/20/19 09:30 09:30 11:34 WBC RBC Hgb Hct RDW Plt Count Lymph % (Auto) [place] % (Auto) Lymph # Seg Neutrophils % Seg Neuts % (Manual) Lymphocytes % (Manual) Monocytes % (Manual) Nucleated RBC % Seg Neutrophils # Seg Neutrophils # Man Lymphocytes # (Manual) Monocytes # (Manual) PT INR D-Dimer Heparin Anti-Xa Level POC ABG pH ABG pH POC ABG pCO2 POC ABG pO2 ABG pO2 ABG HCO3 ABG O2 Saturation ABG Base Excess ABG Hemoglobin Oxyhemoglobin Sodium 131 L Potassium Chloride 92.3 L Carbon Dioxide 20 L BUN 68 H Creatinine 6.1 H Glucose 164 H POC Glucose 141 H Lactic Acid Calcium 5.3 L* Ionized Calcium Phosphorus Magnesium Iron TIBC Ferritin Total Bilirubin 9.50 H Direct Bilirubin AST 381 H ALT 116 H Alkaline Phosphatase 255 H Total Creatine Kinase 90564 H CK-MB (CK-2) Troponin T C-Reactive Protein Total Protein 5.1 L Albumin 2.3 L Triglycerides LDL Cholesterol Direct HDL Cholesterol Free T4 PTH Intact Urine WBC (Auto) Urine Creatinine Salicylates Acetaminophen Crossmatch 03/20/19 03/20/19 03/20/19 14:41 14:45 18:50 WBC RBC Hgb Hct RDW Plt Count Lymph % (Auto) [place] % (Auto) Lymph # Seg Neutrophils % Seg Neuts % (Manual) Lymphocytes % (Manual) Monocytes % (Manual) Nucleated RBC % Seg Neutrophils # Seg Neutrophils # Man Lymphocytes # (Manual) Monocytes # (Manual) PT INR D-Dimer Heparin Anti-Xa Level POC ABG pH ABG pH POC ABG pCO2 POC ABG pO2 ABG pO2 ABG HCO3 ABG O2 Saturation ABG Base Excess ABG Hemoglobin Oxyhemoglobin Sodium Potassium Chloride Carbon Dioxide BUN Creatinine Glucose POC Glucose 117 H Lactic Acid 2.90 H* Calcium Ionized Calcium Phosphorus Magnesium Iron TIBC Ferritin Total Bilirubin Direct Bilirubin AST ALT Alkaline Phosphatase Total Creatine Kinase CK-MB (CK-2) Troponin T C-Reactive Protein 13.30 H Total Protein Albumin Triglycerides LDL Cholesterol Direct HDL Cholesterol Free T4 PTH Intact Urine WBC (Auto) Urine Creatinine Salicylates Acetaminophen Crossmatch 03/20/19 03/21/19 03/21/19 21:55 04:26 04:26 WBC 37.8 H RBC Hgb Hct RDW 15.4 H Plt Count 36 L Lymph % (Auto) [place] % (Auto) Lymph # Seg Neutrophils % Seg Neuts % (Manual) 93.0 H Lymphocytes % (Manual) 3.0 L Monocytes % (Manual) Nucleated RBC % 1.0 H Seg Neutrophils # 34.6 H Seg Neutrophils # Man 35.2 H Lymphocytes # (Manual) 1.1 L Monocytes # (Manual) PT INR D-Dimer Heparin Anti-Xa Level POC ABG pH ABG pH POC ABG pCO2 POC ABG pO2 ABG pO2 ABG HCO3 ABG O2 Saturation ABG Base Excess ABG Hemoglobin Oxyhemoglobin Sodium 131 L Potassium Chloride 90.7 L Carbon Dioxide 21 L BUN 69 H Creatinine 5.7 H Glucose 170 H POC Glucose 128 H Lactic Acid Calcium 6.1 L D Ionized Calcium Phosphorus Magnesium Iron TIBC Ferritin Total Bilirubin 9.50 H Direct Bilirubin AST 308 H ALT 124 H Alkaline Phosphatase 327 H Total Creatine Kinase 80176 H CK-MB (CK-2) Troponin T C-Reactive Protein Total Protein 5.7 L Albumin 2.6 L Triglycerides LDL Cholesterol Direct HDL Cholesterol Free T4 PTH Intact Urine WBC (Auto) Urine Creatinine Salicylates Acetaminophen Crossmatch 03/21/19 03/21/19 03/21/19 05:17 05:39 08:29 WBC RBC Hgb Hct RDW Plt Count Lymph % (Auto) [place] % (Auto) Lymph # Seg Neutrophils % Seg Neuts % (Manual) Lymphocytes % (Manual) Monocytes % (Manual) Nucleated RBC % Seg Neutrophils # Seg Neutrophils # Man Lymphocytes # (Manual) Monocytes # (Manual) PT INR D-Dimer Heparin Anti-Xa Level POC ABG pH ABG pH POC ABG pCO2 POC ABG pO2 209 H ABG pO2 ABG HCO3 ABG O2 Saturation ABG Base Excess ABG Hemoglobin Oxyhemoglobin Sodium Potassium Chloride Carbon Dioxide BUN Creatinine Glucose POC Glucose 145 H Lactic Acid Calcium Ionized Calcium Phosphorus Magnesium Iron TIBC Ferritin Total Bilirubin Direct Bilirubin AST ALT Alkaline Phosphatase Total Creatine Kinase 59296 H CK-MB (CK-2) Troponin T C-Reactive Protein Total Protein Albumin Triglycerides LDL Cholesterol Direct HDL Cholesterol Free T4 PTH Intact Urine WBC (Auto) Urine Creatinine Salicylates Acetaminophen Crossmatch 03/21/19 03/21/19 03/21/19 08:29 11:43 12:00 WBC RBC Hgb Hct RDW Plt Count Lymph % (Auto) [place] % (Auto) Lymph # Seg Neutrophils % Seg Neuts % (Manual) Lymphocytes % (Manual) Monocytes % (Manual) Nucleated RBC % Seg Neutrophils # Seg Neutrophils # Man Lymphocytes # (Manual) Monocytes # (Manual) PT INR D-Dimer Heparin Anti-Xa Level POC ABG pH ABG pH POC ABG pCO2 POC ABG pO2 ABG pO2 ABG HCO3 ABG O2 Saturation ABG Base Excess ABG Hemoglobin Oxyhemoglobin Sodium Potassium Chloride Carbon Dioxide BUN Creatinine Glucose POC Glucose 123 H Lactic Acid 2.60 H* 2.20 H* Calcium Ionized Calcium Phosphorus Magnesium Iron TIBC Ferritin Total Bilirubin Direct Bilirubin AST ALT Alkaline Phosphatase Total Creatine Kinase CK-MB (CK-2) Troponin T C-Reactive Protein Total Protein Albumin Triglycerides LDL Cholesterol Direct HDL Cholesterol Free T4 PTH Intact Urine WBC (Auto) Urine Creatinine Salicylates Acetaminophen Crossmatch 03/21/19 03/21/19 03/21/19 14:11 18:28 19:32 WBC RBC Hgb Hct RDW Plt Count Lymph % (Auto) [place] % (Auto) Lymph # Seg Neutrophils % Seg Neuts % (Manual) Lymphocytes % (Manual) Monocytes % (Manual) Nucleated RBC % Seg Neutrophils # Seg Neutrophils # Man Lymphocytes # (Manual) Monocytes # (Manual) PT INR D-Dimer Heparin Anti-Xa Level POC ABG pH 7.293 L ABG pH POC ABG pCO2 POC ABG pO2 ABG pO2 ABG HCO3 ABG O2 Saturation ABG Base Excess ABG Hemoglobin Oxyhemoglobin Sodium Potassium Chloride Carbon Dioxide BUN Creatinine Glucose POC Glucose 153 H Lactic Acid 2.10 H* Calcium Ionized Calcium Phosphorus Magnesium Iron TIBC Ferritin Total Bilirubin Direct Bilirubin AST ALT Alkaline Phosphatase Total Creatine Kinase CK-MB (CK-2) Troponin T C-Reactive Protein Total Protein Albumin Triglycerides LDL Cholesterol Direct HDL Cholesterol Free T4 PTH Intact Urine WBC (Auto) Urine Creatinine Salicylates Acetaminophen Crossmatch 03/21/19 03/22/19 03/22/19 23:38 05:08 05:51 WBC RBC Hgb Hct RDW Plt Count Lymph % (Auto) [place] % (Auto) Lymph # Seg Neutrophils % Seg Neuts % (Manual) Lymphocytes % (Manual) Monocytes % (Manual) Nucleated RBC % Seg Neutrophils # Seg Neutrophils # Man Lymphocytes # (Manual) Monocytes # (Manual) PT INR D-Dimer Heparin Anti-Xa Level POC ABG pH 7.283 L ABG pH POC ABG pCO2 POC ABG pO2 53 L ABG pO2 ABG HCO3 ABG O2 Saturation ABG Base Excess ABG Hemoglobin Oxyhemoglobin Sodium Potassium Chloride Carbon Dioxide BUN Creatinine Glucose POC Glucose 149 H 131 H Lactic Acid Calcium Ionized Calcium Phosphorus Magnesium Iron TIBC Ferritin Total Bilirubin Direct Bilirubin AST ALT Alkaline Phosphatase Total Creatine Kinase CK-MB (CK-2) Troponin T C-Reactive Protein Total Protein Albumin Triglycerides LDL Cholesterol Direct HDL Cholesterol Free T4 PTH Intact Urine WBC (Auto) Urine Creatinine Salicylates Acetaminophen Crossmatch 03/22/19 03/22/19 03/22/19 08:00 08:00 18:19 WBC 36.7 H RBC Hgb 11.0 L Hct 33.5 L RDW 15.5 H Plt Count 43 L Lymph % (Auto) [place] % (Auto) Lymph # Seg Neutrophils % Seg Neuts % (Manual) 87.0 H Lymphocytes % (Manual) 7.0 L Monocytes % (Manual) Nucleated RBC % Seg Neutrophils # Seg Neutrophils # Man 31.9 H Lymphocytes # (Manual) Monocytes # (Manual) PT INR D-Dimer Heparin Anti-Xa Level POC ABG pH ABG pH POC ABG pCO2 46.4 H POC ABG pO2 108 H ABG pO2 ABG HCO3 ABG O2 Saturation ABG Base Excess ABG Hemoglobin Oxyhemoglobin Sodium 132 L Potassium 5.6 H Chloride 89.6 L Carbon Dioxide 20 L BUN 101 H Creatinine 7.4 H Glucose 124 H POC Glucose Lactic Acid Calcium 5.2 L* Ionized Calcium Phosphorus Magnesium Iron TIBC Ferritin Total Bilirubin 2.80 H Direct Bilirubin AST 119 H ALT 86 H Alkaline Phosphatase 245 H Total Creatine Kinase CK-MB (CK-2) Troponin T C-Reactive Protein Total Protein 5.6 L Albumin 2.5 L Triglycerides LDL Cholesterol Direct HDL Cholesterol Free T4 PTH Intact Urine WBC (Auto) Urine Creatinine Salicylates Acetaminophen Crossmatch 03/22/19 03/23/19 03/23/19 20:37 04:49 05:28 WBC 35.9 H RBC Hgb 10.8 L Hct 33.2 L RDW 15.5 H Plt Count 49 L Lymph % (Auto) [place] % (Auto) Lymph # Seg Neutrophils % Seg Neuts % (Manual) 81.0 H Lymphocytes % (Manual) 3.5 L Monocytes % (Manual) Nucleated RBC % Seg Neutrophils # Seg Neutrophils # Man 29.1 H Lymphocytes # (Manual) Monocytes # (Manual) 1.4 H PT INR D-Dimer Heparin Anti-Xa Level POC ABG pH 7.296 L ABG pH POC ABG pCO2 46.2 H POC ABG pO2 ABG pO2 ABG HCO3 ABG O2 Saturation ABG Base Excess ABG Hemoglobin Oxyhemoglobin Sodium 129 L Potassium 5.2 H Chloride 91.1 L Carbon Dioxide BUN 91 H Creatinine 6.6 H Glucose 190 H POC Glucose Lactic Acid Calcium 5.3 L* Ionized Calcium Phosphorus Magnesium Iron TIBC Ferritin Total Bilirubin 1.80 H Direct Bilirubin AST 80 H ALT 62 H Alkaline Phosphatase 209 H Total Creatine Kinase 9758 H CK-MB (CK-2) Troponin T C-Reactive Protein Total Protein 5.2 L Albumin 2.2 L Triglycerides LDL Cholesterol Direct HDL Cholesterol Free T4 PTH Intact Urine WBC (Auto) Urine Creatinine Salicylates Acetaminophen Crossmatch 03/23/19 03/23/19 03/23/19 05:28 05:31 11:33 WBC 29.7 H RBC 3.59 L Hgb 10.1 L Hct 31.1 L RDW 15.4 H Plt Count 47 L Lymph % (Auto) [place] % (Auto) Lymph # Seg Neutrophils % Seg Neuts % (Manual) 89.0 H Lymphocytes % (Manual) 6.0 L Monocytes % (Manual) Nucleated RBC % 1.0 H Seg Neutrophils # Seg Neutrophils # Man 26.4 H Lymphocytes # (Manual) Monocytes # (Manual) PT INR D-Dimer Heparin Anti-Xa Level POC ABG pH ABG pH POC ABG pCO2 POC ABG pO2 ABG pO2 ABG HCO3 ABG O2 Saturation ABG Base Excess ABG Hemoglobin Oxyhemoglobin Sodium Potassium Chloride Carbon Dioxide BUN Creatinine Glucose POC Glucose 122 H 113 H Lactic Acid Calcium Ionized Calcium Phosphorus Magnesium Iron TIBC Ferritin Total Bilirubin Direct Bilirubin AST ALT Alkaline Phosphatase Total Creatine Kinase CK-MB (CK-2) Troponin T C-Reactive Protein Total Protein Albumin Triglycerides LDL Cholesterol Direct HDL Cholesterol Free T4 PTH Intact Urine WBC (Auto) Urine Creatinine Salicylates Acetaminophen Crossmatch 03/23/19 03/24/19 03/24/19 17:47 00:00 04:50 WBC 35.0 H RBC Hgb 10.4 L Hct 32.4 L RDW Plt Count 60 L Lymph % (Auto) [place] % (Auto) Lymph # Seg Neutrophils % Seg Neuts % (Manual) 93.0 H Lymphocytes % (Manual) 5.0 L Monocytes % (Manual) Nucleated RBC % 7.0 H Seg Neutrophils # Seg Neutrophils # Man 32.6 H Lymphocytes # (Manual) Monocytes # (Manual) PT INR D-Dimer Heparin Anti-Xa Level POC ABG pH ABG pH POC ABG pCO2 POC ABG pO2 ABG pO2 ABG HCO3 ABG O2 Saturation ABG Base Excess ABG Hemoglobin Oxyhemoglobin Sodium Potassium Chloride Carbon Dioxide BUN Creatinine Glucose POC Glucose 111 H 108 H Lactic Acid Calcium Ionized Calcium Phosphorus Magnesium Iron TIBC Ferritin Total Bilirubin Direct Bilirubin AST ALT Alkaline Phosphatase Total Creatine Kinase CK-MB (CK-2) Troponin T C-Reactive Protein Total Protein Albumin Triglycerides LDL Cholesterol Direct HDL Cholesterol Free T4 PTH Intact Urine WBC (Auto) Urine Creatinine Salicylates Acetaminophen Crossmatch 03/24/19 03/24/19 03/24/19 04:50 05:06 12:55 WBC RBC Hgb Hct RDW Plt Count Lymph % (Auto) [place] % (Auto) Lymph # Seg Neutrophils % Seg Neuts % (Manual) Lymphocytes % (Manual) Monocytes % (Manual) Nucleated RBC % Seg Neutrophils # Seg Neutrophils # Man Lymphocytes # (Manual) Monocytes # (Manual) PT INR D-Dimer Heparin Anti-Xa Level POC ABG pH ABG pH POC ABG pCO2 POC ABG pO2 ABG pO2 ABG HCO3 ABG O2 Saturation ABG Base Excess ABG Hemoglobin Oxyhemoglobin Sodium 134 L Potassium 5.1 H Chloride 95.3 L Carbon Dioxide 21 L BUN 85 H Creatinine 6.4 H Glucose 109 H POC Glucose 112 H 110 H Lactic Acid Calcium 5.8 L* Ionized Calcium Phosphorus Magnesium Iron TIBC Ferritin Total Bilirubin Direct Bilirubin AST ALT Alkaline Phosphatase Total Creatine Kinase 5747 H CK-MB (CK-2) Troponin T C-Reactive Protein Total Protein Albumin Triglycerides LDL Cholesterol Direct HDL Cholesterol Free T4 PTH Intact Urine WBC (Auto) Urine Creatinine Salicylates Acetaminophen Crossmatch 03/24/19 03/25/19 03/25/19 23:29 05:00 05:00 WBC RBC Hgb Hct RDW Plt Count Lymph % (Auto) [place] % (Auto) Lymph # Seg Neutrophils % Seg Neuts % (Manual) Lymphocytes % (Manual) Monocytes % (Manual) Nucleated RBC % Seg Neutrophils # Seg Neutrophils # Man Lymphocytes # (Manual) Monocytes # (Manual) PT INR D-Dimer Heparin Anti-Xa Level POC ABG pH ABG pH POC ABG pCO2 POC ABG pO2 ABG pO2 ABG HCO3 ABG O2 Saturation ABG Base Excess ABG Hemoglobin Oxyhemoglobin Sodium 133 L Potassium Chloride 94.0 L Carbon Dioxide 21 L BUN 81 H Creatinine 6.4 H Glucose POC Glucose 109 H Lactic Acid Calcium 5.5 L* Ionized Calcium Phosphorus Magnesium Iron TIBC Ferritin Total Bilirubin Direct Bilirubin AST 80 H ALT Alkaline Phosphatase 202 H Total Creatine Kinase 3589 H CK-MB (CK-2) Troponin T C-Reactive Protein Total Protein 5.3 L Albumin 2.4 L Triglycerides LDL Cholesterol Direct HDL Cholesterol Free T4 PTH Intact 329.9 H Urine WBC (Auto) Urine Creatinine Salicylates Acetaminophen Crossmatch 03/25/19 03/25/19 03/26/19 05:00 06:30 04:30 WBC 23.3 H RBC 3.61 L Hgb 10.2 L Hct 31.2 L RDW Plt Count 57 L Lymph % (Auto) [place] % (Auto) Lymph # Seg Neutrophils % Seg Neuts % (Manual) 92.0 H Lymphocytes % (Manual) 6.0 L Monocytes % (Manual) Nucleated RBC % Seg Neutrophils # Seg Neutrophils # Man 21.4 H Lymphocytes # (Manual) Monocytes # (Manual) PT INR D-Dimer Heparin Anti-Xa Level POC ABG pH ABG pH 7.326 L POC ABG pCO2 POC ABG pO2 ABG pO2 109.5 H 137.4 H ABG HCO3 18.8 L 18.6 L ABG O2 Saturation ABG Base Excess -4.4 L -6.8 L ABG Hemoglobin 10.1 L 9.9 L Oxyhemoglobin Sodium Potassium Chloride Carbon Dioxide BUN Creatinine Glucose POC Glucose Lactic Acid Calcium Ionized Calcium Phosphorus Magnesium Iron TIBC Ferritin Total Bilirubin Direct Bilirubin AST ALT Alkaline Phosphatase Total Creatine Kinase CK-MB (CK-2) Troponin T C-Reactive Protein Total Protein Albumin Triglycerides LDL Cholesterol Direct HDL Cholesterol Free T4 PTH Intact Urine WBC (Auto) Urine Creatinine Salicylates Acetaminophen Crossmatch 03/26/19 03/26/19 03/26/19 23:22 Unknown Unknown WBC 19.5 H RBC 3.44 L Hgb 9.8 L Hct 29.9 L RDW Plt Count 85 L Lymph % (Auto) [place] % (Auto) Lymph # Seg Neutrophils % Seg Neuts % (Manual) 95.0 H Lymphocytes % (Manual) 3.0 L Monocytes % (Manual) Nucleated RBC % Seg Neutrophils # Seg Neutrophils # Man 18.5 H Lymphocytes # (Manual) 0.6 L Monocytes # (Manual) PT INR D-Dimer Heparin Anti-Xa Level POC ABG pH ABG pH POC ABG pCO2 POC ABG pO2 ABG pO2 ABG HCO3 ABG O2 Saturation ABG Base Excess ABG Hemoglobin Oxyhemoglobin Sodium 135 L Potassium 5.2 H D Chloride 92.2 L Carbon Dioxide 18 L BUN 109 H Creatinine 8.5 H Glucose 117 H POC Glucose 69 L Lactic Acid Calcium 4.5 L* D Ionized Calcium Phosphorus Magnesium Iron TIBC Ferritin Total Bilirubin Direct Bilirubin AST ALT Alkaline Phosphatase Total Creatine Kinase 4527 H CK-MB (CK-2) Troponin T C-Reactive Protein Total Protein Albumin Triglycerides LDL Cholesterol Direct HDL Cholesterol Free T4 PTH Intact Urine WBC (Auto) Urine Creatinine Salicylates Acetaminophen Crossmatch 03/27/19 03/27/19 03/27/19 04:30 04:30 09:00 WBC 19.2 H RBC 3.42 L Hgb 9.9 L Hct 30.0 L RDW Plt Count 84 L Lymph % (Auto) [place] % (Auto) Lymph # Seg Neutrophils % Seg Neuts % (Manual) Lymphocytes % (Manual) Monocytes % (Manual) Nucleated RBC % Seg Neutrophils # Seg Neutrophils # Man Lymphocytes # (Manual) Monocytes # (Manual) PT INR D-Dimer Heparin Anti-Xa Level POC ABG pH ABG pH POC ABG pCO2 POC ABG pO2 ABG pO2 ABG HCO3 ABG O2 Saturation ABG Base Excess ABG Hemoglobin Oxyhemoglobin Sodium 135 L Potassium Chloride 93.5 L Carbon Dioxide BUN 84 H Creatinine 7.1 H Glucose POC Glucose Lactic Acid Calcium 5.0 L* Ionized Calcium Phosphorus Magnesium Iron TIBC Ferritin Total Bilirubin Direct Bilirubin AST 78 H ALT Alkaline Phosphatase 135 H Total Creatine Kinase 4677 H CK-MB (CK-2) Troponin T C-Reactive Protein Total Protein 4.8 L Albumin 2.3 L Triglycerides 409 H LDL Cholesterol Direct HDL Cholesterol Free T4 PTH Intact Urine WBC (Auto) Urine Creatinine Salicylates Acetaminophen Crossmatch 03/27/19 03/27/19 03/27/19 12:37 14:15 14:15 WBC RBC Hgb 9.7 L Hct 29.5 L RDW Plt Count 87 L Lymph % (Auto) [place] % (Auto) Lymph # Seg Neutrophils % Seg Neuts % (Manual) Lymphocytes % (Manual) Monocytes % (Manual) Nucleated RBC % Seg Neutrophils # Seg Neutrophils # Man Lymphocytes # (Manual) Monocytes # (Manual) PT 15.9 H INR 1.30 H D-Dimer Heparin Anti-Xa Level POC ABG pH ABG pH POC ABG pCO2 POC ABG pO2 ABG pO2 ABG HCO3 ABG O2 Saturation ABG Base Excess ABG Hemoglobin Oxyhemoglobin Sodium Potassium Chloride Carbon Dioxide BUN Creatinine Glucose POC Glucose 129 H Lactic Acid Calcium Ionized Calcium Phosphorus Magnesium Iron TIBC Ferritin Total Bilirubin Direct Bilirubin AST ALT Alkaline Phosphatase Total Creatine Kinase CK-MB (CK-2) Troponin T C-Reactive Protein Total Protein Albumin Triglycerides LDL Cholesterol Direct HDL Cholesterol Free T4 PTH Intact Urine WBC (Auto) Urine Creatinine Salicylates Acetaminophen Crossmatch 03/27/19 03/27/19 03/27/19 18:00 19:22 19:23 WBC RBC Hgb Hct RDW Plt Count Lymph % (Auto) [place] % (Auto) Lymph # Seg Neutrophils % Seg Neuts % (Manual) Lymphocytes % (Manual) Monocytes % (Manual) Nucleated RBC % Seg Neutrophils # Seg Neutrophils # Man Lymphocytes # (Manual) Monocytes # (Manual) PT INR D-Dimer Heparin Anti-Xa Level < 0.10 L POC ABG pH ABG pH POC ABG pCO2 POC ABG pO2 ABG pO2 ABG HCO3 ABG O2 Saturation ABG Base Excess ABG Hemoglobin Oxyhemoglobin Sodium Potassium Chloride Carbon Dioxide BUN Creatinine Glucose POC Glucose 121 H Lactic Acid Calcium Ionized Calcium Phosphorus Magnesium Iron TIBC Ferritin Total Bilirubin Direct Bilirubin AST ALT Alkaline Phosphatase Total Creatine Kinase 4517 H CK-MB (CK-2) Troponin T C-Reactive Protein Total Protein Albumin Triglycerides LDL Cholesterol Direct HDL Cholesterol Free T4 PTH Intact Urine WBC (Auto) Urine Creatinine Salicylates Acetaminophen Crossmatch 03/27/19 03/27/19 03/28/19 22:10 23:52 03:49 WBC RBC Hgb Hct RDW Plt Count Lymph % (Auto) [place] % (Auto) Lymph # Seg Neutrophils % Seg Neuts % (Manual) Lymphocytes % (Manual) Monocytes % (Manual) Nucleated RBC % Seg Neutrophils # Seg Neutrophils # Man Lymphocytes # (Manual) Monocytes # (Manual) PT INR D-Dimer Heparin Anti-Xa Level POC ABG pH 7.338 L ABG pH POC ABG pCO2 33.1 L POC ABG pO2 ABG pO2 ABG HCO3 ABG O2 Saturation ABG Base Excess ABG Hemoglobin Oxyhemoglobin Sodium Potassium Chloride Carbon Dioxide BUN Creatinine Glucose POC Glucose 113 H 117 H Lactic Acid Calcium Ionized Calcium Phosphorus Magnesium Iron TIBC Ferritin Total Bilirubin Direct Bilirubin AST ALT Alkaline Phosphatase Total Creatine Kinase CK-MB (CK-2) Troponin T C-Reactive Protein Total Protein Albumin Triglycerides LDL Cholesterol Direct HDL Cholesterol Free T4 PTH Intact Urine WBC (Auto) Urine Creatinine Salicylates Acetaminophen Crossmatch 03/28/19 03/28/19 03/28/19 05:13 05:13 06:18 WBC RBC Hgb Hct RDW Plt Count Lymph % (Auto) [place] % (Auto) Lymph # Seg Neutrophils % Seg Neuts % (Manual) Lymphocytes % (Manual) Monocytes % (Manual) Nucleated RBC % Seg Neutrophils # Seg Neutrophils # Man Lymphocytes # (Manual) Monocytes # (Manual) PT INR D-Dimer Heparin Anti-Xa Level 0.23 L POC ABG pH ABG pH POC ABG pCO2 POC ABG pO2 ABG pO2 ABG HCO3 ABG O2 Saturation ABG Base Excess ABG Hemoglobin Oxyhemoglobin Sodium 135 L Potassium 5.5 H D Chloride 95.1 L Carbon Dioxide 16 L D BUN 129 H Creatinine 9.3 H Glucose 158 H POC Glucose 202 H Lactic Acid Calcium 4.0 L* D Ionized Calcium Phosphorus 12.40 H Magnesium Iron TIBC Ferritin Total Bilirubin Direct Bilirubin AST ALT Alkaline Phosphatase Total Creatine Kinase 4266 H CK-MB (CK-2) Troponin T C-Reactive Protein Total Protein Albumin Triglycerides LDL Cholesterol Direct HDL Cholesterol Free T4 PTH Intact Urine WBC (Auto) Urine Creatinine Salicylates Acetaminophen Crossmatch 03/28/19 03/28/19 03/28/19 08:25 10:00 12:00 WBC RBC Hgb 4.9 L* D Hct 15.4 L* D RDW Plt Count Lymph % (Auto) [place] % (Auto) Lymph # Seg Neutrophils % Seg Neuts % (Manual) Lymphocytes % (Manual) Monocytes % (Manual) Nucleated RBC % Seg Neutrophils # Seg Neutrophils # Man Lymphocytes # (Manual) Monocytes # (Manual) PT 17.9 H INR 1.52 H D-Dimer 4845.98 H Heparin Anti-Xa Level POC ABG pH ABG pH POC ABG pCO2 POC ABG pO2 ABG pO2 ABG HCO3 ABG O2 Saturation ABG Base Excess ABG Hemoglobin Oxyhemoglobin Sodium Potassium Chloride Carbon Dioxide BUN Creatinine Glucose POC Glucose Lactic Acid Calcium Ionized Calcium Phosphorus Magnesium Iron TIBC Ferritin Total Bilirubin Direct Bilirubin AST ALT Alkaline Phosphatase Total Creatine Kinase CK-MB (CK-2) Troponin T C-Reactive Protein Total Protein Albumin Triglycerides LDL Cholesterol Direct HDL Cholesterol Free T4 PTH Intact Urine WBC (Auto) Urine Creatinine Salicylates Acetaminophen Crossmatch See Detail 03/28/19 03/28/19 03/28/19 12:28 14:10 17:43 WBC RBC Hgb 5.9 L* Hct 18.3 L* RDW Plt Count Lymph % (Auto) [place] % (Auto) Lymph # Seg Neutrophils % Seg Neuts % (Manual) Lymphocytes % (Manual) Monocytes % (Manual) Nucleated RBC % Seg Neutrophils # Seg Neutrophils # Man Lymphocytes # (Manual) Monocytes # (Manual) PT INR D-Dimer Heparin Anti-Xa Level POC ABG pH ABG pH POC ABG pCO2 POC ABG pO2 ABG pO2 ABG HCO3 ABG O2 Saturation ABG Base Excess ABG Hemoglobin Oxyhemoglobin Sodium Potassium Chloride Carbon Dioxide BUN Creatinine Glucose POC Glucose 153 H 159 H Lactic Acid Calcium Ionized Calcium Phosphorus Magnesium Iron TIBC Ferritin Total Bilirubin Direct Bilirubin AST ALT Alkaline Phosphatase Total Creatine Kinase CK-MB (CK-2) Troponin T C-Reactive Protein Total Protein Albumin Triglycerides LDL Cholesterol Direct HDL Cholesterol Free T4 PTH Intact Urine WBC (Auto) Urine Creatinine Salicylates Acetaminophen Crossmatch 03/28/19 03/28/19 03/28/19 18:10 Unknown 23:59 WBC 24.8 H RBC 3.42 L Hgb 10.2 L D Hct 31.1 L D RDW 15.4 H Plt Count 54 L Lymph % (Auto) [place] % (Auto) Lymph # Seg Neutrophils % Seg Neuts % (Manual) 91.0 H Lymphocytes % (Manual) 8.0 L Monocytes % (Manual) Nucleated RBC % Seg Neutrophils # Seg Neutrophils # Man 22.6 H Lymphocytes # (Manual) Monocytes # (Manual) PT INR D-Dimer Heparin Anti-Xa Level POC ABG pH ABG pH POC ABG pCO2 POC ABG pO2 ABG pO2 ABG HCO3 ABG O2 Saturation ABG Base Excess ABG Hemoglobin Oxyhemoglobin Sodium Potassium 5.7 H Chloride Carbon Dioxide BUN Creatinine Glucose POC Glucose 107 H Lactic Acid Calcium Ionized Calcium Phosphorus Magnesium Iron TIBC Ferritin Total Bilirubin Direct Bilirubin AST ALT Alkaline Phosphatase Total Creatine Kinase CK-MB (CK-2) Troponin T C-Reactive Protein Total Protein Albumin Triglycerides LDL Cholesterol Direct HDL Cholesterol Free T4 PTH Intact Urine WBC (Auto) Urine Creatinine Salicylates Acetaminophen Crossmatch 03/29/19 03/29/19 03/29/19 04:29 05:46 06:22 WBC RBC Hgb 8.6 L Hct 25.7 L RDW Plt Count 93 L Lymph % (Auto) [place] % (Auto) Lymph # Seg Neutrophils % Seg Neuts % (Manual) Lymphocytes % (Manual) Monocytes % (Manual) Nucleated RBC % Seg Neutrophils # Seg Neutrophils # Man Lymphocytes # (Manual) Monocytes # (Manual) PT INR D-Dimer Heparin Anti-Xa Level POC ABG pH ABG pH POC ABG pCO2 32.2 L POC ABG pO2 ABG pO2 ABG HCO3 ABG O2 Saturation ABG Base Excess ABG Hemoglobin Oxyhemoglobin Sodium Potassium Chloride Carbon Dioxide BUN Creatinine Glucose POC Glucose 113 H Lactic Acid Calcium Ionized Calcium Phosphorus Magnesium Iron TIBC Ferritin Total Bilirubin Direct Bilirubin AST ALT Alkaline Phosphatase Total Creatine Kinase CK-MB (CK-2) Troponin T C-Reactive Protein Total Protein Albumin Triglycerides LDL Cholesterol Direct HDL Cholesterol Free T4 PTH Intact Urine WBC (Auto) Urine Creatinine Salicylates Acetaminophen Crossmatch 03/29/19 03/29/19 03/29/19 06:22 06:22 06:22 WBC 23.2 H RBC 2.91 L Hgb 8.6 L Hct 25.8 L RDW Plt Count 91 L Lymph % (Auto) [place] % (Auto) Lymph # Seg Neutrophils % Seg Neuts % (Manual) Lymphocytes % (Manual) Monocytes % (Manual) Nucleated RBC % Seg Neutrophils # Seg Neutrophils # Man Lymphocytes # (Manual) Monocytes # (Manual) PT INR D-Dimer Heparin Anti-Xa Level POC ABG pH ABG pH POC ABG pCO2 POC ABG pO2 ABG pO2 ABG HCO3 ABG O2 Saturation ABG Base Excess ABG Hemoglobin Oxyhemoglobin Sodium 133 L Potassium Chloride 93.8 L Carbon Dioxide 18 L BUN 109 H Creatinine 7.4 H Glucose 124 H POC Glucose Lactic Acid Calcium 4.6 L* Ionized Calcium Phosphorus Magnesium Iron TIBC Ferritin Total Bilirubin Direct Bilirubin AST ALT Alkaline Phosphatase Total Creatine Kinase 3401 H CK-MB (CK-2) Troponin T C-Reactive Protein Total Protein Albumin Triglycerides 309 H LDL Cholesterol Direct HDL Cholesterol Free T4 PTH Intact Urine WBC (Auto) Urine Creatinine Salicylates Acetaminophen Crossmatch 03/29/19 03/29/19 03/29/19 11:48 11:48 18:24 WBC RBC Hgb 7.8 L Hct 23.2 L RDW Plt Count Lymph % (Auto) [place] % (Auto) Lymph # Seg Neutrophils % Seg Neuts % (Manual) Lymphocytes % (Manual) Monocytes % (Manual) Nucleated RBC % Seg Neutrophils # Seg Neutrophils # Man Lymphocytes # (Manual) Monocytes # (Manual) PT 15.3 H INR 1.24 H D-Dimer Heparin Anti-Xa Level POC ABG pH ABG pH POC ABG pCO2 POC ABG pO2 ABG pO2 ABG HCO3 ABG O2 Saturation ABG Base Excess ABG Hemoglobin Oxyhemoglobin Sodium Potassium Chloride Carbon Dioxide BUN Creatinine Glucose POC Glucose 122 H Lactic Acid Calcium Ionized Calcium Phosphorus Magnesium Iron TIBC Ferritin Total Bilirubin Direct Bilirubin AST ALT Alkaline Phosphatase Total Creatine Kinase CK-MB (CK-2) Troponin T C-Reactive Protein Total Protein Albumin Triglycerides LDL Cholesterol Direct HDL Cholesterol Free T4 PTH Intact Urine WBC (Auto) Urine Creatinine Salicylates Acetaminophen Crossmatch 03/30/19 03/30/19 03/30/19 00:40 04:31 05:04 WBC RBC Hgb 7.6 L Hct 23.0 L RDW Plt Count Lymph % (Auto) [place] % (Auto) Lymph # Seg Neutrophils % Seg Neuts % (Manual) Lymphocytes % (Manual) Monocytes % (Manual) Nucleated RBC % Seg Neutrophils # Seg Neutrophils # Man Lymphocytes # (Manual) Monocytes # (Manual) PT INR D-Dimer Heparin Anti-Xa Level POC ABG pH 7.346 L ABG pH POC ABG pCO2 POC ABG pO2 62 L ABG pO2 ABG HCO3 ABG O2 Saturation ABG Base Excess ABG Hemoglobin Oxyhemoglobin Sodium Potassium Chloride Carbon Dioxide BUN 79 H Creatinine 6.4 H Glucose POC Glucose Lactic Acid Calcium 6.1 L D Ionized Calcium Phosphorus Magnesium Iron TIBC Ferritin Total Bilirubin Direct Bilirubin AST ALT Alkaline Phosphatase Total Creatine Kinase CK-MB (CK-2) Troponin T C-Reactive Protein Total Protein Albumin Triglycerides LDL Cholesterol Direct HDL Cholesterol Free T4 PTH Intact Urine WBC (Auto) Urine Creatinine Salicylates Acetaminophen Crossmatch 03/30/19 03/30/19 03/30/19 08:45 12:09 22:43 WBC 14.3 H RBC 2.33 L Hgb 7.0 L 7.4 L Hct 21.0 L 22.3 L RDW 15.6 H Plt Count 135 L Lymph % (Auto) [place] % (Auto) Lymph # Seg Neutrophils % Seg Neuts % (Manual) Lymphocytes % (Manual) Monocytes % (Manual) Nucleated RBC % Seg Neutrophils # Seg Neutrophils # Man Lymphocytes # (Manual) Monocytes # (Manual) PT INR D-Dimer Heparin Anti-Xa Level POC ABG pH ABG pH POC ABG pCO2 POC ABG pO2 ABG pO2 ABG HCO3 ABG O2 Saturation ABG Base Excess ABG Hemoglobin Oxyhemoglobin Sodium Potassium Chloride Carbon Dioxide BUN Creatinine Glucose POC Glucose Lactic Acid Calcium Ionized Calcium 3.7 L Phosphorus Magnesium Iron TIBC Ferritin Total Bilirubin Direct Bilirubin AST ALT Alkaline Phosphatase Total Creatine Kinase CK-MB (CK-2) Troponin T C-Reactive Protein Total Protein Albumin Triglycerides LDL Cholesterol Direct HDL Cholesterol Free T4 PTH Intact Urine WBC (Auto) Urine Creatinine Salicylates Acetaminophen Crossmatch 03/30/19 03/30/19 03/31/19 23:38 Unknown 04:44 WBC 11.5 H RBC 2.40 L Hgb 7.3 L Hct 21.9 L RDW 15.4 H Plt Count Lymph % (Auto) 10.6 L [place] % (Auto) Lymph # Seg Neutrophils % 81.7 H Seg Neuts % (Manual) Lymphocytes % (Manual) Monocytes % (Manual) Nucleated RBC % Seg Neutrophils # 9.4 H Seg Neutrophils # Man Lymphocytes # (Manual) Monocytes # (Manual) PT INR D-Dimer Heparin Anti-Xa Level POC ABG pH ABG pH POC ABG pCO2 POC ABG pO2 ABG pO2 ABG HCO3 ABG O2 Saturation ABG Base Excess ABG Hemoglobin Oxyhemoglobin Sodium Potassium Chloride Carbon Dioxide BUN Creatinine Glucose POC Glucose 155 H Lactic Acid Calcium Ionized Calcium Phosphorus Magnesium Iron TIBC Ferritin Total Bilirubin Direct Bilirubin 0.4 H AST 63 H ALT Alkaline Phosphatase Total Creatine Kinase CK-MB (CK-2) Troponin T C-Reactive Protein Total Protein 4.9 L Albumin 2.2 L Triglycerides LDL Cholesterol Direct HDL Cholesterol Free T4 PTH Intact Urine WBC (Auto) Urine Creatinine Salicylates Acetaminophen Crossmatch 03/31/19 03/31/19 03/31/19 04:44 05:44 08:20 WBC RBC Hgb Hct RDW Plt Count Lymph % (Auto) [place] % (Auto) Lymph # Seg Neutrophils % Seg Neuts % (Manual) Lymphocytes % (Manual) Monocytes % (Manual) Nucleated RBC % Seg Neutrophils # Seg Neutrophils # Man Lymphocytes # (Manual) Monocytes # (Manual) PT INR D-Dimer Heparin Anti-Xa Level POC ABG pH ABG pH POC ABG pCO2 53.5 H POC ABG pO2 62 L ABG pO2 ABG HCO3 ABG O2 Saturation ABG Base Excess ABG Hemoglobin Oxyhemoglobin Sodium 135 L Potassium Chloride 96.7 L Carbon Dioxide 19 L BUN 94 H Creatinine 7.8 H Glucose POC Glucose Lactic Acid Calcium 5.3 L* Ionized Calcium Phosphorus 8.20 H Magnesium Iron TIBC Ferritin Total Bilirubin Direct Bilirubin 0.4 H AST 60 H ALT Alkaline Phosphatase Total Creatine Kinase CK-MB (CK-2) Troponin T C-Reactive Protein Total Protein 4.8 L Albumin 2.1 L Triglycerides LDL Cholesterol Direct HDL Cholesterol Free T4 PTH Intact Urine WBC (Auto) Urine Creatinine Salicylates Acetaminophen Crossmatch 03/31/19 04/01/19 04/01/19 22:14 04:27 04:27 WBC RBC 2.60 L Hgb 8.0 L Hct 24.1 L RDW 15.7 H Plt Count Lymph % (Auto) 7.9 L [place] % (Auto) Lymph # 0.7 L Seg Neutrophils % 83.6 H Seg Neuts % (Manual) Lymphocytes % (Manual) Monocytes % (Manual) Nucleated RBC % Seg Neutrophils # Seg Neutrophils # Man Lymphocytes # (Manual) Monocytes # (Manual) PT INR D-Dimer Heparin Anti-Xa Level POC ABG pH 7.286 L ABG pH POC ABG pCO2 54.7 H POC ABG pO2 179 H ABG pO2 ABG HCO3 ABG O2 Saturation ABG Base Excess ABG Hemoglobin Oxyhemoglobin Sodium Potassium Chloride Carbon Dioxide BUN 68 H Creatinine 6.6 H Glucose POC Glucose Lactic Acid Calcium 6.5 L D Ionized Calcium Phosphorus 7.30 H Magnesium Iron TIBC Ferritin Total Bilirubin Direct Bilirubin AST ALT Alkaline Phosphatase Total Creatine Kinase 1652 H CK-MB (CK-2) Troponin T C-Reactive Protein Total Protein Albumin Triglycerides LDL Cholesterol Direct HDL Cholesterol Free T4 PTH Intact Urine WBC (Auto) Urine Creatinine Salicylates Acetaminophen Crossmatch 04/01/19 04/01/19 04/01/19 05:14 05:37 18:37 WBC RBC Hgb Hct RDW Plt Count Lymph % (Auto) [place] % (Auto) Lymph # Seg Neutrophils % Seg Neuts % (Manual) Lymphocytes % (Manual) Monocytes % (Manual) Nucleated RBC % Seg Neutrophils # Seg Neutrophils # Man Lymphocytes # (Manual) Monocytes # (Manual) PT INR D-Dimer Heparin Anti-Xa Level POC ABG pH 7.283 L ABG pH POC ABG pCO2 53.4 H POC ABG pO2 241 H ABG pO2 ABG HCO3 ABG O2 Saturation ABG Base Excess ABG Hemoglobin Oxyhemoglobin Sodium Potassium Chloride Carbon Dioxide BUN Creatinine Glucose POC Glucose 111 H 119 H Lactic Acid Calcium Ionized Calcium Phosphorus Magnesium Iron TIBC Ferritin Total Bilirubin Direct Bilirubin AST ALT Alkaline Phosphatase Total Creatine Kinase CK-MB (CK-2) Troponin T C-Reactive Protein Total Protein Albumin Triglycerides LDL Cholesterol Direct HDL Cholesterol Free T4 PTH Intact Urine WBC (Auto) Urine Creatinine Salicylates Acetaminophen Crossmatch 04/01/19 04/02/19 04/02/19 21:28 04:40 05:03 WBC RBC 2.36 L Hgb 7.2 L Hct 21.9 L RDW 16.0 H Plt Count Lymph % (Auto) 10.8 L [place] % (Auto) Lymph # 0.8 L Seg Neutrophils % 80.3 H Seg Neuts % (Manual) Lymphocytes % (Manual) Monocytes % (Manual) Nucleated RBC % Seg Neutrophils # Seg Neutrophils # Man Lymphocytes # (Manual) Monocytes # (Manual) PT INR D-Dimer Heparin Anti-Xa Level POC ABG pH 7.299 L 7.300 L ABG pH POC ABG pCO2 48.2 H 45.2 H POC ABG pO2 133 H 107 H ABG pO2 ABG HCO3 ABG O2 Saturation ABG Base Excess ABG Hemoglobin Oxyhemoglobin Sodium Potassium Chloride Carbon Dioxide BUN Creatinine Glucose POC Glucose Lactic Acid Calcium Ionized Calcium Phosphorus Magnesium Iron TIBC Ferritin Total Bilirubin Direct Bilirubin AST ALT Alkaline Phosphatase Total Creatine Kinase CK-MB (CK-2) Troponin T C-Reactive Protein Total Protein Albumin Triglycerides LDL Cholesterol Direct HDL Cholesterol Free T4 PTH Intact Urine WBC (Auto) Urine Creatinine Salicylates Acetaminophen Crossmatch 04/02/19 04/02/19 04/02/19 05:03 05:03 12:15 WBC RBC Hgb 7.4 L Hct 22.6 L RDW Plt Count Lymph % (Auto) [place] % (Auto) Lymph # Seg Neutrophils % Seg Neuts % (Manual) Lymphocytes % (Manual) Monocytes % (Manual) Nucleated RBC % Seg Neutrophils # Seg Neutrophils # Man Lymphocytes # (Manual) Monocytes # (Manual) PT INR D-Dimer Heparin Anti-Xa Level POC ABG pH ABG pH POC ABG pCO2 POC ABG pO2 ABG pO2 ABG HCO3 ABG O2 Saturation ABG Base Excess ABG Hemoglobin Oxyhemoglobin Sodium 136 L Potassium Chloride 97.8 L Carbon Dioxide 18 L BUN 82 H Creatinine 8.2 H Glucose POC Glucose Lactic Acid Calcium 6.7 L Ionized Calcium Phosphorus 7.50 H Magnesium Iron 26 L TIBC 138 L Ferritin 607.0 H Total Bilirubin Direct Bilirubin AST ALT Alkaline Phosphatase Total Creatine Kinase CK-MB (CK-2) Troponin T C-Reactive Protein Total Protein Albumin Triglycerides LDL Cholesterol Direct HDL Cholesterol Free T4 PTH Intact Urine WBC (Auto) Urine Creatinine Salicylates Acetaminophen Crossmatch 04/02/19 04/02/19 04/03/19 16:34 17:14 04:18 WBC RBC Hgb Hct RDW Plt Count Lymph % (Auto) [place] % (Auto) Lymph # Seg Neutrophils % Seg Neuts % (Manual) Lymphocytes % (Manual) Monocytes % (Manual) Nucleated RBC % Seg Neutrophils # Seg Neutrophils # Man Lymphocytes # (Manual) Monocytes # (Manual) PT INR D-Dimer Heparin Anti-Xa Level POC ABG pH ABG pH POC ABG pCO2 POC ABG pO2 146 H ABG pO2 ABG HCO3 ABG O2 Saturation ABG Base Excess ABG Hemoglobin Oxyhemoglobin Sodium Potassium Chloride Carbon Dioxide BUN Creatinine Glucose POC Glucose 108 H Lactic Acid Calcium Ionized Calcium Phosphorus Magnesium Iron TIBC Ferritin Total Bilirubin Direct Bilirubin AST ALT Alkaline Phosphatase Total Creatine Kinase CK-MB (CK-2) Troponin T C-Reactive Protein Total Protein Albumin Triglycerides LDL Cholesterol Direct HDL Cholesterol Free T4 PTH Intact Urine WBC (Auto) Urine Creatinine Salicylates Acetaminophen Crossmatch See Detail 04/03/19 04/03/19 04/03/19 04:25 08:30 18:24 WBC RBC 2.40 L Hgb 7.3 L Hct 21.9 L RDW Plt Count Lymph % (Auto) [place] % (Auto) 7.7 H Lymph # 0.9 L Seg Neutrophils % 74.6 H Seg Neuts % (Manual) Lymphocytes % (Manual) Monocytes % (Manual) Nucleated RBC % Seg Neutrophils # Seg Neutrophils # Man Lymphocytes # (Manual) Monocytes # (Manual) PT INR D-Dimer Heparin Anti-Xa Level POC ABG pH ABG pH POC ABG pCO2 POC ABG pO2 ABG pO2 ABG HCO3 ABG O2 Saturation ABG Base Excess ABG Hemoglobin Oxyhemoglobin Sodium 136 L Potassium Chloride 97.0 L Carbon Dioxide BUN 58 H Creatinine 7.3 H Glucose POC Glucose 106 H Lactic Acid Calcium 7.5 L Ionized Calcium Phosphorus 5.80 H D Magnesium Iron TIBC Ferritin Total Bilirubin Direct Bilirubin AST ALT Alkaline Phosphatase Total Creatine Kinase CK-MB (CK-2) Troponin T C-Reactive Protein Total Protein Albumin Triglycerides LDL Cholesterol Direct HDL Cholesterol Free T4 PTH Intact Urine WBC (Auto) Urine Creatinine Salicylates Acetaminophen Crossmatch 04/03/19 04/04/19 04/04/19 23:43 04:47 04:47 WBC RBC 2.72 L Hgb 8.3 L Hct 24.7 L RDW 15.6 H Plt Count Lymph % (Auto) [place] % (Auto) 10.1 H Lymph # 0.8 L Seg Neutrophils % 71.4 H Seg Neuts % (Manual) Lymphocytes % (Manual) Monocytes % (Manual) Nucleated RBC % Seg Neutrophils # Seg Neutrophils # Man Lymphocytes # (Manual) Monocytes # (Manual) PT INR D-Dimer Heparin Anti-Xa Level POC ABG pH ABG pH POC ABG pCO2 POC ABG pO2 ABG pO2 123.8 H ABG HCO3 ABG O2 Saturation ABG Base Excess -3.0 L ABG Hemoglobin 7.9 L Oxyhemoglobin Sodium 134 L Potassium Chloride 97.9 L Carbon Dioxide BUN 64 H Creatinine 8.1 H Glucose POC Glucose Lactic Acid Calcium 7.2 L Ionized Calcium Phosphorus Magnesium Iron TIBC Ferritin Total Bilirubin Direct Bilirubin AST ALT Alkaline Phosphatase Total Creatine Kinase CK-MB (CK-2) Troponin T C-Reactive Protein Total Protein Albumin Triglycerides LDL Cholesterol Direct HDL Cholesterol Free T4 PTH Intact Urine WBC (Auto) Urine Creatinine Salicylates Acetaminophen Crossmatch 04/04/19 06:07 WBC RBC Hgb Hct RDW Plt Count Lymph % (Auto) [place] % (Auto) Lymph # Seg Neutrophils % Seg Neuts % (Manual) Lymphocytes % (Manual) Monocytes % (Manual) Nucleated RBC % Seg Neutrophils # Seg Neutrophils # Man Lymphocytes # (Manual) Monocytes # (Manual) PT INR D-Dimer Heparin Anti-Xa Level POC ABG pH ABG pH POC ABG pCO2 POC ABG pO2 ABG pO2 ABG HCO3 ABG O2 Saturation ABG Base Excess ABG Hemoglobin Oxyhemoglobin Sodium Potassium Chloride Carbon Dioxide BUN Creatinine Glucose POC Glucose 107 H Lactic Acid Calcium Ionized Calcium Phosphorus Magnesium Iron TIBC Ferritin Total Bilirubin Direct Bilirubin AST ALT Alkaline Phosphatase Total Creatine Kinase CK-MB (CK-2) Troponin T C-Reactive Protein Total Protein Albumin Triglycerides LDL Cholesterol Direct HDL Cholesterol Free T4 PTH Intact Urine WBC (Auto) Urine Creatinine Salicylates Acetaminophen Crossmatch Allied health notes reviewed: nursing
--- NOTE | 2019-04-04 13:21 | Gastroenterology Progress Note ---
Assessment and Plan GI bleed - EGD on 03/30 with gastric ulcer with bleeding stigmata s/p epi and gold probe. large melena episode 2 days ago; no further overt bleeding since then and labs/hct has been stable. switch to IV BID dosing today. manage conservatively from GI stand point at this time. Will reserve endoscopy for active bleeding/worsening labs. will stop following daily. please call as needed or with questions. Subjective Date of service: 04/04/19 Principal diagnosis: Septic Shock; Ac. hypoxemic resp failure; Renzo. PNA; Rhabdomyolysis; RUBEN Interval history: pt seen and examined; intubated this morning at time of exam. dark brown stool in fms w/o overt bleeding. Objective - Exam Narrative Exam: Gen: intubated/sedated CV: tachycardic, s1 and s2 Lungs: coarse bilateral bs abd: soft, nd FMS: dark brown stool - Constitutional Vitals: Temp Pulse Resp BP Pulse Ox 101.5 F H 143 H 16 122/69 99 04/04/19 12:00 04/04/19 09:00 04/04/19 09:00 04/04/19 11:59 04/04/19 11:59 - Labs CBC & Chem 7: 04/04/19 04:47 04/04/19 04:47 Labs: Laboratory Results - last 24 hr 04/02/19 04/03/19 04/03/19 16:34 18:24 23:43 WBC RBC Hgb Hct MCV MCH MCHC RDW Plt Count Lymph % (Auto) [place] % (Auto) Eos % (Auto) Baso % (Auto) Lymph # [place] # Eos # Baso # Seg Neutrophils % Seg Neutrophils # ABG pH 7.375 ABG pCO2 38.4 ABG pO2 123.8 H ABG HCO3 21.9 ABG O2 Saturation 98.4 ABG O2 Content 11.0 ABG Base Excess -3.0 L ABG Hemoglobin 7.9 L ABG Carboxyhemoglobin 1.5 ABG Methemoglobin 0.6 Oxyhemoglobin 96.3 FiO2 35 Sodium Potassium Chloride Carbon Dioxide Anion Gap BUN Creatinine Estimated GFR BUN/Creatinine Ratio Glucose POC Glucose 106 H Calcium Blood Type A POSITIVE Antibody Screen Negative Crossmatch See Detail 04/04/19 04/04/19 04/04/19 00:14 04:47 04:47 WBC 5.7 RBC 2.72 L Hgb 8.3 L Hct 24.7 L MCV 91 MCH 31 MCHC 34 RDW 15.6 H Plt Count 160 Lymph % (Auto) 14.4 [place] % (Auto) 10.1 H Eos % (Auto) 3.1 Baso % (Auto) 1.0 Lymph # 0.8 L [place] # 0.6 Eos # 0.2 Baso # 0.1 Seg Neutrophils % 71.4 H Seg Neutrophils # 4.0 ABG pH ABG pCO2 ABG pO2 ABG HCO3 ABG O2 Saturation ABG O2 Content ABG Base Excess ABG Hemoglobin ABG Carboxyhemoglobin ABG Methemoglobin Oxyhemoglobin FiO2 Sodium 134 L Potassium 4.4 Chloride 97.9 L Carbon Dioxide 23 Anion Gap 18 BUN 64 H Creatinine 8.1 H Estimated GFR 9 BUN/Creatinine Ratio 8 Glucose 96 POC Glucose 102 Calcium 7.2 L Blood Type Antibody Screen Crossmatch 04/04/19 06:07 WBC RBC Hgb Hct MCV MCH MCHC RDW Plt Count Lymph % (Auto) [place] % (Auto) Eos % (Auto) Baso % (Auto) Lymph # [place] # Eos # Baso # Seg Neutrophils % Seg Neutrophils # ABG pH ABG pCO2 ABG pO2 ABG HCO3 ABG O2 Saturation ABG O2 Content ABG Base Excess ABG Hemoglobin ABG Carboxyhemoglobin ABG Methemoglobin Oxyhemoglobin FiO2 Sodium Potassium Chloride Carbon Dioxide Anion Gap BUN Creatinine Estimated GFR BUN/Creatinine Ratio Glucose POC Glucose 107 H Calcium Blood Type Antibody Screen Crossmatch
[2019-04-04 14:15] LABS: ABG HCO3 21.4 mmol/L (20.0-26.0); ABG Methemoglobin 0.6 % (0.0-1.5); ABG Oxygen Saturation 97.5 % (95.0-99.0); ABG PCO2 35.6 mm Hg; ABG PH 7.397 pH Units (7.350-7.450); ABG PO2 95.9 mm Hg (80.0-90.0)
[2019-04-04] MEDS: AMIODARONE 200 MG TAB PO SCH ×2 (14:20→22:09)
[2019-04-04] MEDS: AMIODARONE 900 MG in DEXTROSE 5% IN WATER 482 ML IV SCH (14:21)
--- NOTE | 2019-04-04 14:31 | Progress Note ---
Assessment and Plan Patient is a 43 y/o man w/ a history of psychiatric illness (unknown which psychiatric diagnosis he has been given in the past), who presented on 03/16/19 with altered mental status. During the course of admission, patient was found to have sepsis with septic shock, rhabdomyolysis, RUBEN, and multiorgan failure. According to the patient's clinical findings, the patient likely has toxic metabolic encephalopathy. In support of this diagnosis, the multiple metabolic derangements including multiorgan failure, sepsis, septic shock requiring pressor support, RUBEN, rhabdomyolysis. Plan: 1. Metabolic encephalopathy: - Likely due to multiple underlying metabolic derangements, including multiorgan failure, sepsis, septic shock requiring pressor support, RUBEN. - Possible Meningo-encephalitis, however patient had been on Abx since admission, and is waking up when sedation held. LP not likely to be high yield at this point. - Patient on antibiotics per ID. - EEG showed generalized slowing, no seizures or epileptiform activity. - CT head showed diffuse cerebral edema. MRI brain on 03/26/19 showed no acute abnormality. - Continue supportive care per ICU/primary/ID teams. - Discussed at length with patient's brother regarding current neurologic status, altered mental status due to metabolic abnormalities and sepsis/shock. - Will continue to monitor patient. Thank you for allowing me to take part in the care of this patient. Nahid Carroll MD Neurology Subjective Date of service: 04/04/19 Principal diagnosis: Septic Shock; Ac. hypoxemic resp failure; Renzo. PNA; Rhabdomyolysis; RUBEN Interval history: Patient febrile this morning. Objective - Exam Narrative Exam: Patient is intubated. Opens eyes and nods head to vocal stimulus. Following 1- step commands by squeezing hand and moving feet. PERRL, corneal reflexes diminished, cough/gag weakly intact. Patient moves head with visual threat when checking corneal reflexes. Withdraws to pain stimulus in all extremities. Spontanenous movement noted in all extremities. 2+ reflexes throughout. - Vital Sign Vital Signs - 12hr 04/04/19 04/04/19 04/04/19 02:30 02:45 03:00 Temperature Pulse Rate 93 H 95 H 94 H Pulse Rate [ From Monitor] Respiratory 16 15 14 Rate Blood Pressure 137/63 147/66 142/64 O2 Sat by Pulse 99 98 97 Oximetry 04/04/19 04/04/1919 03:15 03:30 03:45 Temperature Pulse Rate 94 H 96 H 93 H Pulse Rate [ From Monitor] Respiratory 13 17 19 Rate Blood Pressure 138/62 146/64 135/64 O2 Sat by Pulse 97 98 98 Oximetry 04/04/19 04/04/19 04/04/19 04:00 04:15 04:30 Temperature 100.1 F H Pulse Rate 98 H 98 H 98 H Pulse Rate [ 110 H From Monitor] Respiratory 26 H 14 19 Rate Blood Pressure 148/67 148/67 143/69 O2 Sat by Pulse 99 99 100 Oximetry 04/04/19 04/04/19 04/04/19 04:45 05:00 05:15 Temperature Pulse Rate 96 H 104 H 95 H Pulse Rate [ From Monitor] Respiratory 14 20 14 Rate Blood Pressure 144/68 160/79 154/72 O2 Sat by Pulse 99 98 98 Oximetry 04/04/19 04/04/19 04/04/19 05:30 05:45 06:00 Temperature Pulse Rate 101 H 99 H 130 H Pulse Rate [ From Monitor] Respiratory 19 19 19 Rate Blood Pressure 173/81 175/76 160/76 O2 Sat by Pulse 99 99 97 Oximetry 04/04/19 04/04/19 04/04/19 06:16 06:30 06:46 Temperature Pulse Rate 134 H 155 H 151 H Pulse Rate [ From Monitor] Respiratory 15 16 31 H Rate Blood Pressure 160/70 160/70 O2 Sat by Pulse 98 98 86 Oximetry 04/04/19 04/04/19 04/04/19 07:00 07:16 07:30 Temperature Pulse Rate 148 H 154 H 136 H Pulse Rate [ From Monitor] Respiratory 22 23 17 Rate Blood Pressure 140/79 129/60 141/64 O2 Sat by Pulse 96 97 97 Oximetry 04/04/19 04/04/19 04/04/19 07:46 07:47 07:57 Temperature Pulse Rate 146 H 129 H Pulse Rate [ From Monitor] Respiratory 16 Rate Blood Pressure 114/61 114/61 O2 Sat by Pulse 98 97 99 Oximetry 04/04/19 04/04/19 04/04/19 08:00 08:15 08:30 Temperature 101.5 F H Pulse Rate 148 H 130 H 144 H Pulse Rate [ From Monitor] Respiratory 12 16 14 Rate Blood Pressure 119/68 123/55 114/57 O2 Sat by Pulse 99 99 100 Oximetry 04/04/19 04/04/19 04/04/19 08:45 09:00 11:59 Temperature Pulse Rate 132 H 143 H Pulse Rate [ From Monitor] Respiratory 14 16 Rate Blood Pressure 125/59 130/60 122/69 O2 Sat by Pulse 100 100 99 Oximetry 04/04/19 12:00 Temperature 101.5 F H Pulse Rate Pulse Rate [ From Monitor] Respiratory Rate Blood Pressure O2 Sat by Pulse Oximetry - General Apperance Constitutional: acutely ill - EENT EENT: ATNC, PERRL, mucous membranes moist - Respiratory Respiratory: decreased breath sounds - Cardiovascular Cardiovascular: regular rate, normal S1, normal S2 Extremities: no clubbing, cyanosis, no inflammation - Gastrointestinal Gastrointestinal: normoactive bowel sounds, soft, non-tender - Laboratory Findings CBC and BMP: 04/04/19 04:47 04/04/19 04:47 Abnormal Lab Findings: Abnormal Labs 03/16/19 03/16/19 03/16/19 15:32 16:03 16:05 WBC 27.0 H RBC 5.55 H Hgb 15.7 H Hct 47.1 H RDW Plt Count 75 L Lymph % (Auto) [place] % (Auto) Lymph # Seg Neutrophils % Seg Neuts % (Manual) 85.0 H Lymphocytes % (Manual) 2.0 L Monocytes % (Manual) Nucleated RBC % Seg Neutrophils # Seg Neutrophils # Man 23.0 H Lymphocytes # (Manual) 0.5 L Monocytes # (Manual) PT INR D-Dimer Heparin Anti-Xa Level POC ABG pH ABG pH POC ABG pCO2 POC ABG pO2 ABG pO2 ABG HCO3 ABG O2 Saturation ABG Base Excess ABG Hemoglobin Oxyhemoglobin Sodium 127 L Potassium Chloride 87.8 L Carbon Dioxide 17 L BUN 49 H Creatinine 5.8 H Glucose 150 H POC Glucose 118 H Lactic Acid Calcium 6.6 L Ionized Calcium Phosphorus Magnesium 1.10 L Iron TIBC Ferritin Total Bilirubin Direct Bilirubin AST ALT Alkaline Phosphatase Total Creatine Kinase 40882 H CK-MB (CK-2) Troponin T C-Reactive Protein Total Protein Albumin Triglycerides LDL Cholesterol Direct HDL Cholesterol Free T4 PTH Intact Urine WBC (Auto) Urine Creatinine Salicylates Acetaminophen Crossmatch 03/16/19 03/16/19 03/16/19 16:59 17:05 17:05 WBC RBC Hgb Hct RDW Plt Count Lymph % (Auto) [place] % (Auto) Lymph # Seg Neutrophils % Seg Neuts % (Manual) Lymphocytes % (Manual) Monocytes % (Manual) Nucleated RBC % Seg Neutrophils # Seg Neutrophils # Man Lymphocytes # (Manual) Monocytes # (Manual) PT INR D-Dimer Heparin Anti-Xa Level POC ABG pH 7.297 L ABG pH POC ABG pCO2 33.0 L POC ABG pO2 ABG pO2 ABG HCO3 ABG O2 Saturation ABG Base Excess ABG Hemoglobin Oxyhemoglobin Sodium Potassium Chloride Carbon Dioxide BUN Creatinine Glucose POC Glucose Lactic Acid Calcium Ionized Calcium Phosphorus Magnesium Iron TIBC Ferritin Total Bilirubin Direct Bilirubin AST ALT Alkaline Phosphatase Total Creatine Kinase 01881 H CK-MB (CK-2) 83.1 H Troponin T C-Reactive Protein Total Protein Albumin Triglycerides LDL Cholesterol Direct HDL Cholesterol Free T4 0.72 L PTH Intact Urine WBC (Auto) Urine Creatinine Salicylates Acetaminophen Crossmatch 03/16/19 03/16/19 03/16/19 17:05 17:05 17:05 WBC RBC Hgb Hct RDW Plt Count Lymph % (Auto) [place] % (Auto) Lymph # Seg Neutrophils % Seg Neuts % (Manual) Lymphocytes % (Manual) Monocytes % (Manual) Nucleated RBC % Seg Neutrophils # Seg Neutrophils # Man Lymphocytes # (Manual) Monocytes # (Manual) PT INR D-Dimer Heparin Anti-Xa Level POC ABG pH ABG pH POC ABG pCO2 POC ABG pO2 ABG pO2 ABG HCO3 ABG O2 Saturation ABG Base Excess ABG Hemoglobin Oxyhemoglobin Sodium Potassium Chloride Carbon Dioxide BUN Creatinine Glucose POC Glucose Lactic Acid 5.10 H* Calcium Ionized Calcium Phosphorus Magnesium Iron TIBC Ferritin Total Bilirubin Direct Bilirubin AST ALT Alkaline Phosphatase Total Creatine Kinase CK-MB (CK-2) Troponin T C-Reactive Protein Total Protein Albumin Triglycerides LDL Cholesterol Direct HDL Cholesterol Free T4 PTH Intact Urine WBC (Auto) Urine Creatinine Salicylates < 0.3 L Acetaminophen < 5.0 L Crossmatch 03/16/19 03/16/19 03/16/19 17:05 17:05 20:35 WBC RBC Hgb Hct RDW Plt Count Lymph % (Auto) [place] % (Auto) Lymph # Seg Neutrophils % Seg Neuts % (Manual) Lymphocytes % (Manual) Monocytes % (Manual) Nucleated RBC % Seg Neutrophils # Seg Neutrophils # Man Lymphocytes # (Manual) Monocytes # (Manual) PT 15.9 H INR 1.30 H D-Dimer Heparin Anti-Xa Level POC ABG pH ABG pH POC ABG pCO2 POC ABG pO2 ABG pO2 ABG HCO3 ABG O2 Saturation ABG Base Excess ABG Hemoglobin Oxyhemoglobin Sodium Potassium Chloride Carbon Dioxide BUN Creatinine Glucose POC Glucose Lactic Acid 3.30 H* Calcium Ionized Calcium Phosphorus Magnesium Iron TIBC Ferritin Total Bilirubin 6.20 H Direct Bilirubin 5.9 H AST 800 H ALT 120 H Alkaline Phosphatase Total Creatine Kinase CK-MB (CK-2) Troponin T C-Reactive Protein Total Protein 4.4 L Albumin 2.4 L Triglycerides LDL Cholesterol Direct HDL Cholesterol Free T4 PTH Intact Urine WBC (Auto) Urine Creatinine Salicylates Acetaminophen Crossmatch 03/16/19 03/16/19 03/16/19 21:45 22:32 Unknown WBC RBC Hgb Hct RDW Plt Count Lymph % (Auto) [place] % (Auto) Lymph # Seg Neutrophils % Seg Neuts % (Manual) Lymphocytes % (Manual) Monocytes % (Manual) Nucleated RBC % Seg Neutrophils # Seg Neutrophils # Man Lymphocytes # (Manual) Monocytes # (Manual) PT INR D-Dimer Heparin Anti-Xa Level POC ABG pH ABG pH POC ABG pCO2 POC ABG pO2 ABG pO2 ABG HCO3 ABG O2 Saturation ABG Base Excess ABG Hemoglobin Oxyhemoglobin Sodium Potassium Chloride Carbon Dioxide BUN Creatinine Glucose POC Glucose Lactic Acid 3.30 H* 3.00 H* Calcium Ionized Calcium Phosphorus Magnesium Iron TIBC Ferritin Total Bilirubin Direct Bilirubin AST ALT Alkaline Phosphatase Total Creatine Kinase CK-MB (CK-2) Troponin T 0.047 H D C-Reactive Protein Total Protein Albumin Triglycerides 395 H LDL Cholesterol Direct 10 L HDL Cholesterol 7 L Free T4 PTH Intact Urine WBC (Auto) Urine Creatinine Salicylates Acetaminophen Crossmatch 03/17/19 03/17/19 03/17/19 03:45 03:45 03:45 WBC RBC Hgb Hct RDW Plt Count Lymph % (Auto) [place] % (Auto) Lymph # Seg Neutrophils % Seg Neuts % (Manual) Lymphocytes % (Manual) Monocytes % (Manual) Nucleated RBC % Seg Neutrophils # Seg Neutrophils # Man Lymphocytes # (Manual) Monocytes # (Manual) PT INR D-Dimer Heparin Anti-Xa Level POC ABG pH ABG pH POC ABG pCO2 POC ABG pO2 ABG pO2 ABG HCO3 ABG O2 Saturation ABG Base Excess ABG Hemoglobin Oxyhemoglobin Sodium 131 L Potassium Chloride 88.9 L Carbon Dioxide BUN 53 H Creatinine 7.1 H Glucose POC Glucose Lactic Acid 4.10 H* Calcium 5.4 L* D Ionized Calcium Phosphorus 7.30 H Magnesium 1.60 L Iron TIBC Ferritin Total Bilirubin 5.90 H Direct Bilirubin AST 801 H ALT 109 H Alkaline Phosphatase Total Creatine Kinase 35731 H 04073 H CK-MB (CK-2) 41.5 H Troponin T 0.054 H C-Reactive Protein Total Protein 4.5 L Albumin 2.0 L Triglycerides LDL Cholesterol Direct HDL Cholesterol Free T4 PTH Intact Urine WBC (Auto) Urine Creatinine Salicylates Acetaminophen Crossmatch 03/17/19 03/17/19 03/17/19 05:47 07:16 07:16 WBC RBC Hgb Hct RDW Plt Count Lymph % (Auto) [place] % (Auto) Lymph # Seg Neutrophils % Seg Neuts % (Manual) Lymphocytes % (Manual) Monocytes % (Manual) Nucleated RBC % Seg Neutrophils # Seg Neutrophils # Man Lymphocytes # (Manual) Monocytes # (Manual) PT INR D-Dimer Heparin Anti-Xa Level POC ABG pH 7.193 L ABG pH POC ABG pCO2 45.2 H POC ABG pO2 65 L ABG pO2 ABG HCO3 ABG O2 Saturation ABG Base Excess ABG Hemoglobin Oxyhemoglobin Sodium Potassium Chloride Carbon Dioxide BUN Creatinine Glucose POC Glucose Lactic Acid 5.50 H* Calcium Ionized Calcium Phosphorus Magnesium Iron TIBC Ferritin Total Bilirubin Direct Bilirubin AST ALT Alkaline Phosphatase Total Creatine Kinase 51581 H CK-MB (CK-2) 54.3 H Troponin T 0.058 H C-Reactive Protein Total Protein Albumin Triglycerides LDL Cholesterol Direct HDL Cholesterol Free T4 PTH Intact Urine WBC (Auto) Urine Creatinine Salicylates Acetaminophen Crossmatch 03/17/19 03/17/19 03/17/19 11:52 12:51 13:01 WBC RBC Hgb Hct RDW Plt Count Lymph % (Auto) [place] % (Auto) Lymph # Seg Neutrophils % Seg Neuts % (Manual) Lymphocytes % (Manual) Monocytes % (Manual) Nucleated RBC % Seg Neutrophils # Seg Neutrophils # Man Lymphocytes # (Manual) Monocytes # (Manual) PT INR D-Dimer Heparin Anti-Xa Level POC ABG pH 7.154 L ABG pH POC ABG pCO2 34.3 L POC ABG pO2 73 L ABG pO2 ABG HCO3 ABG O2 Saturation ABG Base Excess ABG Hemoglobin Oxyhemoglobin Sodium Potassium Chloride Carbon Dioxide BUN Creatinine Glucose POC Glucose 60 L Lactic Acid 8.20 H* Calcium Ionized Calcium Phosphorus Magnesium Iron TIBC Ferritin Total Bilirubin Direct Bilirubin AST ALT Alkaline Phosphatase Total Creatine Kinase CK-MB (CK-2) Troponin T C-Reactive Protein Total Protein Albumin Triglycerides LDL Cholesterol Direct HDL Cholesterol Free T4 PTH Intact Urine WBC (Auto) Urine Creatinine Salicylates Acetaminophen Crossmatch 03/17/19 03/17/19 03/17/19 14:37 14:37 14:37 WBC 29.3 H RBC Hgb Hct RDW 15.8 H Plt Count 45 L Lymph % (Auto) [place] % (Auto) Lymph # Seg Neutrophils % Seg Neuts % (Manual) 81.0 H Lymphocytes % (Manual) 1.0 L Monocytes % (Manual) 15.0 H Nucleated RBC % Seg Neutrophils # Seg Neutrophils # Man 23.7 H Lymphocytes # (Manual) 0.3 L Monocytes # (Manual) 4.4 H PT INR D-Dimer Heparin Anti-Xa Level POC ABG pH ABG pH POC ABG pCO2 POC ABG pO2 ABG pO2 ABG HCO3 ABG O2 Saturation ABG Base Excess ABG Hemoglobin Oxyhemoglobin Sodium Potassium Chloride Carbon Dioxide BUN Creatinine Glucose POC Glucose Lactic Acid 4.90 H* Calcium Ionized Calcium Phosphorus Magnesium Iron TIBC Ferritin Total Bilirubin Direct Bilirubin AST ALT Alkaline Phosphatase Total Creatine Kinase CK-MB (CK-2) Troponin T C-Reactive Protein 24.90 H Total Protein Albumin Triglycerides LDL Cholesterol Direct HDL Cholesterol Free T4 PTH Intact Urine WBC (Auto) Urine Creatinine Salicylates Acetaminophen Crossmatch 03/17/19 03/17/19 03/17/19 16:05 16:05 17:02 WBC RBC Hgb Hct RDW Plt Count Lymph % (Auto) [place] % (Auto) Lymph # Seg Neutrophils % Seg Neuts % (Manual) Lymphocytes % (Manual) Monocytes % (Manual) Nucleated RBC % Seg Neutrophils # Seg Neutrophils # Man Lymphocytes # (Manual) Monocytes # (Manual) PT INR D-Dimer Heparin Anti-Xa Level POC ABG pH 7.183 L ABG pH POC ABG pCO2 POC ABG pO2 65 L ABG pO2 ABG HCO3 ABG O2 Saturation ABG Base Excess ABG Hemoglobin Oxyhemoglobin Sodium Potassium Chloride Carbon Dioxide BUN Creatinine Glucose POC Glucose Lactic Acid Calcium Ionized Calcium Phosphorus Magnesium Iron TIBC Ferritin Total Bilirubin Direct Bilirubin AST ALT Alkaline Phosphatase Total Creatine Kinase CK-MB (CK-2) Troponin T C-Reactive Protein Total Protein Albumin Triglycerides LDL Cholesterol Direct HDL Cholesterol Free T4 PTH Intact Urine WBC (Auto) 30.0 H Urine Creatinine 106.6 H Salicylates Acetaminophen Crossmatch 03/18/19 03/18/19 03/18/19 05:12 05:16 05:53 WBC RBC Hgb Hct RDW Plt Count Lymph % (Auto) [place] % (Auto) Lymph # Seg Neutrophils % Seg Neuts % (Manual) Lymphocytes % (Manual) Monocytes % (Manual) Nucleated RBC % Seg Neutrophils # Seg Neutrophils # Man Lymphocytes # (Manual) Monocytes # (Manual) PT INR D-Dimer Heparin Anti-Xa Level POC ABG pH 7.257 L ABG pH POC ABG pCO2 31.6 L POC ABG pO2 69 L ABG pO2 ABG HCO3 ABG O2 Saturation ABG Base Excess ABG Hemoglobin Oxyhemoglobin Sodium Potassium Chloride Carbon Dioxide BUN Creatinine Glucose POC Glucose 141 H Lactic Acid 5.00 H* Calcium Ionized Calcium Phosphorus Magnesium Iron TIBC Ferritin Total Bilirubin Direct Bilirubin AST ALT Alkaline Phosphatase Total Creatine Kinase CK-MB (CK-2) Troponin T C-Reactive Protein Total Protein Albumin Triglycerides LDL Cholesterol Direct HDL Cholesterol Free T4 PTH Intact Urine WBC (Auto) Urine Creatinine Salicylates Acetaminophen Crossmatch 03/18/19 03/18/19 03/18/19 06:57 08:40 08:40 WBC 31.7 H RBC Hgb Hct RDW 15.5 H Plt Count 35 L Lymph % (Auto) [place] % (Auto) Lymph # Seg Neutrophils % Seg Neuts % (Manual) Lymphocytes % (Manual) Monocytes % (Manual) Nucleated RBC % Seg Neutrophils # Seg Neutrophils # Man Lymphocytes # (Manual) Monocytes # (Manual) PT INR D-Dimer Heparin Anti-Xa Level POC ABG pH ABG pH POC ABG pCO2 POC ABG pO2 ABG pO2 ABG HCO3 ABG O2 Saturation ABG Base Excess ABG Hemoglobin Oxyhemoglobin Sodium 132 L Potassium 5.5 H D Chloride 88.5 L Carbon Dioxide 18 L BUN 71 H Creatinine 8.1 H Glucose 205 H POC Glucose Lactic Acid 5.00 H* Calcium 4.1 L* D Ionized Calcium Phosphorus Magnesium 2.40 H Iron TIBC Ferritin Total Bilirubin 7.50 H Direct Bilirubin AST 1088 H ALT 159 H Alkaline Phosphatase 190 H Total Creatine Kinase 471419 H CK-MB (CK-2) Troponin T C-Reactive Protein Total Protein 4.7 L Albumin 1.8 L Triglycerides LDL Cholesterol Direct HDL Cholesterol Free T4 PTH Intact Urine WBC (Auto) Urine Creatinine Salicylates Acetaminophen Crossmatch 03/18/19 03/18/19 03/18/19 12:33 12:50 13:19 WBC RBC Hgb Hct RDW Plt Count Lymph % (Auto) [place] % (Auto) Lymph # Seg Neutrophils % Seg Neuts % (Manual) Lymphocytes % (Manual) Monocytes % (Manual) Nucleated RBC % Seg Neutrophils # Seg Neutrophils # Man Lymphocytes # (Manual) Monocytes # (Manual) PT INR D-Dimer Heparin Anti-Xa Level POC ABG pH 7.282 L ABG pH POC ABG pCO2 POC ABG pO2 67 L ABG pO2 ABG HCO3 ABG O2 Saturation ABG Base Excess ABG Hemoglobin Oxyhemoglobin Sodium Potassium Chloride Carbon Dioxide BUN Creatinine Glucose POC Glucose 129 H Lactic Acid 3.30 H* Calcium Ionized Calcium Phosphorus Magnesium Iron TIBC Ferritin Total Bilirubin Direct Bilirubin AST ALT Alkaline Phosphatase Total Creatine Kinase CK-MB (CK-2) Troponin T C-Reactive Protein Total Protein Albumin Triglycerides LDL Cholesterol Direct HDL Cholesterol Free T4 PTH Intact Urine WBC (Auto) Urine Creatinine Salicylates Acetaminophen Crossmatch 03/18/19 03/18/19 03/18/19 13:19 16:50 18:11 WBC RBC Hgb Hct RDW Plt Count Lymph % (Auto) [place] % (Auto) Lymph # Seg Neutrophils % Seg Neuts % (Manual) Lymphocytes % (Manual) Monocytes % (Manual) Nucleated RBC % Seg Neutrophils # Seg Neutrophils # Man Lymphocytes # (Manual) Monocytes # (Manual) PT INR D-Dimer Heparin Anti-Xa Level POC ABG pH ABG pH POC ABG pCO2 POC ABG pO2 59 L ABG pO2 ABG HCO3 ABG O2 Saturation ABG Base Excess ABG Hemoglobin Oxyhemoglobin Sodium Potassium Chloride Carbon Dioxide BUN Creatinine Glucose POC Glucose 151 H Lactic Acid Calcium 4.2 L* Ionized Calcium Phosphorus Magnesium Iron TIBC Ferritin Total Bilirubin Direct Bilirubin AST ALT Alkaline Phosphatase Total Creatine Kinase 328746 H CK-MB (CK-2) Troponin T C-Reactive Protein Total Protein Albumin Triglycerides LDL Cholesterol Direct HDL Cholesterol Free T4 PTH Intact Urine WBC (Auto) Urine Creatinine Salicylates Acetaminophen Crossmatch 03/18/19 03/18/19 03/19/19 18:20 23:39 01:42 WBC RBC Hgb Hct RDW Plt Count Lymph % (Auto) [place] % (Auto) Lymph # Seg Neutrophils % Seg Neuts % (Manual) Lymphocytes % (Manual) Monocytes % (Manual) Nucleated RBC % Seg Neutrophils # Seg Neutrophils # Man Lymphocytes # (Manual) Monocytes # (Manual) PT INR D-Dimer Heparin Anti-Xa Level POC ABG pH 7.345 L ABG pH 7.285 L POC ABG pCO2 POC ABG pO2 59 L ABG pO2 44.0 L ABG HCO3 ABG O2 Saturation 70.9 L ABG Base Excess -5.7 L ABG Hemoglobin 11.9 L Oxyhemoglobin 69.6 L Sodium Potassium Chloride Carbon Dioxide BUN Creatinine Glucose POC Glucose 152 H Lactic Acid Calcium Ionized Calcium Phosphorus Magnesium Iron TIBC Ferritin Total Bilirubin Direct Bilirubin AST ALT Alkaline Phosphatase Total Creatine Kinase CK-MB (CK-2) Troponin T C-Reactive Protein Total Protein Albumin Triglycerides LDL Cholesterol Direct HDL Cholesterol Free T4 PTH Intact Urine WBC (Auto) Urine Creatinine Salicylates Acetaminophen Crossmatch 03/19/19 03/19/19 03/19/19 04:00 04:00 05:35 WBC 36.5 H RBC Hgb Hct RDW 15.8 H Plt Count 35 L Lymph % (Auto) [place] % (Auto) Lymph # Seg Neutrophils % Seg Neuts % (Manual) Lymphocytes % (Manual) Monocytes % (Manual) Nucleated RBC % Seg Neutrophils # Seg Neutrophils # Man Lymphocytes # (Manual) Monocytes # (Manual) PT INR D-Dimer Heparin Anti-Xa Level POC ABG pH ABG pH 7.265 L POC ABG pCO2 POC ABG pO2 ABG pO2 35.4 L* ABG HCO3 ABG O2 Saturation 54.4 L ABG Base Excess -6.7 L ABG Hemoglobin 12.9 L Oxyhemoglobin 53.4 L Sodium 132 L Potassium 5.7 H Chloride 89.8 L Carbon Dioxide 19 L BUN 62 H Creatinine 6.4 H Glucose 151 H POC Glucose Lactic Acid Calcium 5.2 L* D Ionized Calcium Phosphorus Magnesium Iron TIBC Ferritin Total Bilirubin 7.80 H Direct Bilirubin AST 682 H ALT 130 H Alkaline Phosphatase 167 H Total Creatine Kinase CK-MB (CK-2) Troponin T C-Reactive Protein Total Protein 4.8 L Albumin 2.3 L Triglycerides LDL Cholesterol Direct HDL Cholesterol Free T4 PTH Intact Urine WBC (Auto) Urine Creatinine Salicylates Acetaminophen Crossmatch 03/19/19 03/19/19 03/19/19 05:49 09:16 09:50 WBC RBC Hgb Hct RDW Plt Count Lymph % (Auto) [place] % (Auto) Lymph # Seg Neutrophils % Seg Neuts % (Manual) Lymphocytes % (Manual) Monocytes % (Manual) Nucleated RBC % Seg Neutrophils # Seg Neutrophils # Man Lymphocytes # (Manual) Monocytes # (Manual) PT INR D-Dimer Heparin Anti-Xa Level POC ABG pH 7.222 L ABG pH POC ABG pCO2 56.6 H POC ABG pO2 ABG pO2 ABG HCO3 ABG O2 Saturation ABG Base Excess ABG Hemoglobin Oxyhemoglobin Sodium Potassium Chloride Carbon Dioxide BUN Creatinine Glucose POC Glucose 154 H Lactic Acid 2.70 H* Calcium Ionized Calcium Phosphorus Magnesium Iron TIBC Ferritin Total Bilirubin Direct Bilirubin AST ALT Alkaline Phosphatase Total Creatine Kinase CK-MB (CK-2) Troponin T C-Reactive Protein Total Protein Albumin Triglycerides LDL Cholesterol Direct HDL Cholesterol Free T4 PTH Intact Urine WBC (Auto) Urine Creatinine Salicylates Acetaminophen Crossmatch 03/19/19 03/19/19 03/19/19 09:50 11:28 17:58 WBC RBC Hgb Hct RDW Plt Count Lymph % (Auto) [place] % (Auto) Lymph # Seg Neutrophils % Seg Neuts % (Manual) Lymphocytes % (Manual) Monocytes % (Manual) Nucleated RBC % Seg Neutrophils # Seg Neutrophils # Man Lymphocytes # (Manual) Monocytes # (Manual) PT INR D-Dimer Heparin Anti-Xa Level POC ABG pH 7.250 L ABG pH POC ABG pCO2 52.6 H POC ABG pO2 ABG pO2 ABG HCO3 ABG O2 Saturation ABG Base Excess ABG Hemoglobin Oxyhemoglobin Sodium Potassium Chloride Carbon Dioxide BUN Creatinine Glucose POC Glucose 160 H Lactic Acid Calcium Ionized Calcium Phosphorus Magnesium Iron TIBC Ferritin Total Bilirubin Direct Bilirubin AST ALT Alkaline Phosphatase Total Creatine Kinase 88172 H CK-MB (CK-2) Troponin T C-Reactive Protein Total Protein Albumin Triglycerides LDL Cholesterol Direct HDL Cholesterol Free T4 PTH Intact Urine WBC (Auto) Urine Creatinine Salicylates Acetaminophen Crossmatch 03/19/19 03/19/19 03/20/19 19:48 21:03 02:16 WBC RBC Hgb Hct RDW Plt Count Lymph % (Auto) [place] % (Auto) Lymph # Seg Neutrophils % Seg Neuts % (Manual) Lymphocytes % (Manual) Monocytes % (Manual) Nucleated RBC % Seg Neutrophils # Seg Neutrophils # Man Lymphocytes # (Manual) Monocytes # (Manual) PT INR D-Dimer Heparin Anti-Xa Level POC ABG pH 7.279 L ABG pH POC ABG pCO2 50.3 H POC ABG pO2 129 H ABG pO2 ABG HCO3 ABG O2 Saturation ABG Base Excess ABG Hemoglobin Oxyhemoglobin Sodium Potassium Chloride Carbon Dioxide BUN Creatinine Glucose POC Glucose 119 H 119 H Lactic Acid Calcium Ionized Calcium Phosphorus Magnesium Iron TIBC Ferritin Total Bilirubin Direct Bilirubin AST ALT Alkaline Phosphatase Total Creatine Kinase CK-MB (CK-2) Troponin T C-Reactive Protein Total Protein Albumin Triglycerides LDL Cholesterol Direct HDL Cholesterol Free T4 PTH Intact Urine WBC (Auto) Urine Creatinine Salicylates Acetaminophen Crossmatch 03/20/19 03/20/19 03/20/19 04:23 05:05 09:30 WBC 36.3 H RBC Hgb Hct RDW 15.5 H Plt Count 29 L Lymph % (Auto) [place] % (Auto) Lymph # Seg Neutrophils % Seg Neuts % (Manual) Lymphocytes % (Manual) Monocytes % (Manual) Nucleated RBC % Seg Neutrophils # Seg Neutrophils # Man Lymphocytes # (Manual) Monocytes # (Manual) PT INR D-Dimer Heparin Anti-Xa Level POC ABG pH ABG pH POC ABG pCO2 POC ABG pO2 280 H ABG pO2 ABG HCO3 ABG O2 Saturation ABG Base Excess ABG Hemoglobin Oxyhemoglobin Sodium Potassium Chloride Carbon Dioxide BUN Creatinine Glucose POC Glucose 115 H Lactic Acid Calcium Ionized Calcium Phosphorus Magnesium Iron TIBC Ferritin Total Bilirubin Direct Bilirubin AST ALT Alkaline Phosphatase Total Creatine Kinase CK-MB (CK-2) Troponin T C-Reactive Protein Total Protein Albumin Triglycerides LDL Cholesterol Direct HDL Cholesterol Free T4 PTH Intact Urine WBC (Auto) Urine Creatinine Salicylates Acetaminophen Crossmatch 03/20/19 03/20/19 03/20/19 09:30 09:30 11:34 WBC RBC Hgb Hct RDW Plt Count Lymph % (Auto) [place] % (Auto) Lymph # Seg Neutrophils % Seg Neuts % (Manual) Lymphocytes % (Manual) Monocytes % (Manual) Nucleated RBC % Seg Neutrophils # Seg Neutrophils # Man Lymphocytes # (Manual) Monocytes # (Manual) PT INR D-Dimer Heparin Anti-Xa Level POC ABG pH ABG pH POC ABG pCO2 POC ABG pO2 ABG pO2 ABG HCO3 ABG O2 Saturation ABG Base Excess ABG Hemoglobin Oxyhemoglobin Sodium 131 L Potassium Chloride 92.3 L Carbon Dioxide 20 L BUN 68 H Creatinine 6.1 H Glucose 164 H POC Glucose 141 H Lactic Acid Calcium 5.3 L* Ionized Calcium Phosphorus Magnesium Iron TIBC Ferritin Total Bilirubin 9.50 H Direct Bilirubin AST 381 H ALT 116 H Alkaline Phosphatase 255 H Total Creatine Kinase 40763 H CK-MB (CK-2) Troponin T C-Reactive Protein Total Protein 5.1 L Albumin 2.3 L Triglycerides LDL Cholesterol Direct HDL Cholesterol Free T4 PTH Intact Urine WBC (Auto) Urine Creatinine Salicylates Acetaminophen Crossmatch 03/20/19 03/20/19 03/20/19 14:41 14:45 18:50 WBC RBC Hgb Hct RDW Plt Count Lymph % (Auto) [place] % (Auto) Lymph # Seg Neutrophils % Seg Neuts % (Manual) Lymphocytes % (Manual) Monocytes % (Manual) Nucleated RBC % Seg Neutrophils # Seg Neutrophils # Man Lymphocytes # (Manual) Monocytes # (Manual) PT INR D-Dimer Heparin Anti-Xa Level POC ABG pH ABG pH POC ABG pCO2 POC ABG pO2 ABG pO2 ABG HCO3 ABG O2 Saturation ABG Base Excess ABG Hemoglobin Oxyhemoglobin Sodium Potassium Chloride Carbon Dioxide BUN Creatinine Glucose POC Glucose 117 H Lactic Acid 2.90 H* Calcium Ionized Calcium Phosphorus Magnesium Iron TIBC Ferritin Total Bilirubin Direct Bilirubin AST ALT Alkaline Phosphatase Total Creatine Kinase CK-MB (CK-2) Troponin T C-Reactive Protein 13.30 H Total Protein Albumin Triglycerides LDL Cholesterol Direct HDL Cholesterol Free T4 PTH Intact Urine WBC (Auto) Urine Creatinine Salicylates Acetaminophen Crossmatch 03/20/19 03/21/19 03/21/19 21:55 04:26 04:26 WBC 37.8 H RBC Hgb Hct RDW 15.4 H Plt Count 36 L Lymph % (Auto) [place] % (Auto) Lymph # Seg Neutrophils % Seg Neuts % (Manual) 93.0 H Lymphocytes % (Manual) 3.0 L Monocytes % (Manual) Nucleated RBC % 1.0 H Seg Neutrophils # 34.6 H Seg Neutrophils # Man 35.2 H Lymphocytes # (Manual) 1.1 L Monocytes # (Manual) PT INR D-Dimer Heparin Anti-Xa Level POC ABG pH ABG pH POC ABG pCO2 POC ABG pO2 ABG pO2 ABG HCO3 ABG O2 Saturation ABG Base Excess ABG Hemoglobin Oxyhemoglobin Sodium 131 L Potassium Chloride 90.7 L Carbon Dioxide 21 L BUN 69 H Creatinine 5.7 H Glucose 170 H POC Glucose 128 H Lactic Acid Calcium 6.1 L D Ionized Calcium Phosphorus Magnesium Iron TIBC Ferritin Total Bilirubin 9.50 H Direct Bilirubin AST 308 H ALT 124 H Alkaline Phosphatase 327 H Total Creatine Kinase 43611 H CK-MB (CK-2) Troponin T C-Reactive Protein Total Protein 5.7 L Albumin 2.6 L Triglycerides LDL Cholesterol Direct HDL Cholesterol Free T4 PTH Intact Urine WBC (Auto) Urine Creatinine Salicylates Acetaminophen Crossmatch 03/21/19 03/21/19 03/21/19 05:17 05:39 08:29 WBC RBC Hgb Hct RDW Plt Count Lymph % (Auto) [place] % (Auto) Lymph # Seg Neutrophils % Seg Neuts % (Manual) Lymphocytes % (Manual) Monocytes % (Manual) Nucleated RBC % Seg Neutrophils # Seg Neutrophils # Man Lymphocytes # (Manual) Monocytes # (Manual) PT INR D-Dimer Heparin Anti-Xa Level POC ABG pH ABG pH POC ABG pCO2 POC ABG pO2 209 H ABG pO2 ABG HCO3 ABG O2 Saturation ABG Base Excess ABG Hemoglobin Oxyhemoglobin Sodium Potassium Chloride Carbon Dioxide BUN Creatinine Glucose POC Glucose 145 H Lactic Acid Calcium Ionized Calcium Phosphorus Magnesium Iron TIBC Ferritin Total Bilirubin Direct Bilirubin AST ALT Alkaline Phosphatase Total Creatine Kinase 01661 H CK-MB (CK-2) Troponin T C-Reactive Protein Total Protein Albumin Triglycerides LDL Cholesterol Direct HDL Cholesterol Free T4 PTH Intact Urine WBC (Auto) Urine Creatinine Salicylates Acetaminophen Crossmatch 03/21/19 03/21/19 03/21/19 08:29 11:43 12:00 WBC RBC Hgb Hct RDW Plt Count Lymph % (Auto) [place] % (Auto) Lymph # Seg Neutrophils % Seg Neuts % (Manual) Lymphocytes % (Manual) Monocytes % (Manual) Nucleated RBC % Seg Neutrophils # Seg Neutrophils # Man Lymphocytes # (Manual) Monocytes # (Manual) PT INR D-Dimer Heparin Anti-Xa Level POC ABG pH ABG pH POC ABG pCO2 POC ABG pO2 ABG pO2 ABG HCO3 ABG O2 Saturation ABG Base Excess ABG Hemoglobin Oxyhemoglobin Sodium Potassium Chloride Carbon Dioxide BUN Creatinine Glucose POC Glucose 123 H Lactic Acid 2.60 H* 2.20 H* Calcium Ionized Calcium Phosphorus Magnesium Iron TIBC Ferritin Total Bilirubin Direct Bilirubin AST ALT Alkaline Phosphatase Total Creatine Kinase CK-MB (CK-2) Troponin T C-Reactive Protein Total Protein Albumin Triglycerides LDL Cholesterol Direct HDL Cholesterol Free T4 PTH Intact Urine WBC (Auto) Urine Creatinine Salicylates Acetaminophen Crossmatch 03/21/19 03/21/19 03/21/19 14:11 18:28 19:32 WBC RBC Hgb Hct RDW Plt Count Lymph % (Auto) [place] % (Auto) Lymph # Seg Neutrophils % Seg Neuts % (Manual) Lymphocytes % (Manual) Monocytes % (Manual) Nucleated RBC % Seg Neutrophils # Seg Neutrophils # Man Lymphocytes # (Manual) Monocytes # (Manual) PT INR D-Dimer Heparin Anti-Xa Level POC ABG pH 7.293 L ABG pH POC ABG pCO2 POC ABG pO2 ABG pO2 ABG HCO3 ABG O2 Saturation ABG Base Excess ABG Hemoglobin Oxyhemoglobin Sodium Potassium Chloride Carbon Dioxide BUN Creatinine Glucose POC Glucose 153 H Lactic Acid 2.10 H* Calcium Ionized Calcium Phosphorus Magnesium Iron TIBC Ferritin Total Bilirubin Direct Bilirubin AST ALT Alkaline Phosphatase Total Creatine Kinase CK-MB (CK-2) Troponin T C-Reactive Protein Total Protein Albumin Triglycerides LDL Cholesterol Direct HDL Cholesterol Free T4 PTH Intact Urine WBC (Auto) Urine Creatinine Salicylates Acetaminophen Crossmatch 03/21/19 03/22/19 03/22/19 23:38 05:08 05:51 WBC RBC Hgb Hct RDW Plt Count Lymph % (Auto) [place] % (Auto) Lymph # Seg Neutrophils % Seg Neuts % (Manual) Lymphocytes % (Manual) Monocytes % (Manual) Nucleated RBC % Seg Neutrophils # Seg Neutrophils # Man Lymphocytes # (Manual) Monocytes # (Manual) PT INR D-Dimer Heparin Anti-Xa Level POC ABG pH 7.283 L ABG pH POC ABG pCO2 POC ABG pO2 53 L ABG pO2 ABG HCO3 ABG O2 Saturation ABG Base Excess ABG Hemoglobin Oxyhemoglobin Sodium Potassium Chloride Carbon Dioxide BUN Creatinine Glucose POC Glucose 149 H 131 H Lactic Acid Calcium Ionized Calcium Phosphorus Magnesium Iron TIBC Ferritin Total Bilirubin Direct Bilirubin AST ALT Alkaline Phosphatase Total Creatine Kinase CK-MB (CK-2) Troponin T C-Reactive Protein Total Protein Albumin Triglycerides LDL Cholesterol Direct HDL Cholesterol Free T4 PTH Intact Urine WBC (Auto) Urine Creatinine Salicylates Acetaminophen Crossmatch 03/22/19 03/22/19 03/22/19 08:00 08:00 18:19 WBC 36.7 H RBC Hgb 11.0 L Hct 33.5 L RDW 15.5 H Plt Count 43 L Lymph % (Auto) [place] % (Auto) Lymph # Seg Neutrophils % Seg Neuts % (Manual) 87.0 H Lymphocytes % (Manual) 7.0 L Monocytes % (Manual) Nucleated RBC % Seg Neutrophils # Seg Neutrophils # Man 31.9 H Lymphocytes # (Manual) Monocytes # (Manual) PT INR D-Dimer Heparin Anti-Xa Level POC ABG pH ABG pH POC ABG pCO2 46.4 H POC ABG pO2 108 H ABG pO2 ABG HCO3 ABG O2 Saturation ABG Base Excess ABG Hemoglobin Oxyhemoglobin Sodium 132 L Potassium 5.6 H Chloride 89.6 L Carbon Dioxide 20 L BUN 101 H Creatinine 7.4 H Glucose 124 H POC Glucose Lactic Acid Calcium 5.2 L* Ionized Calcium Phosphorus Magnesium Iron TIBC Ferritin Total Bilirubin 2.80 H Direct Bilirubin AST 119 H ALT 86 H Alkaline Phosphatase 245 H Total Creatine Kinase CK-MB (CK-2) Troponin T C-Reactive Protein Total Protein 5.6 L Albumin 2.5 L Triglycerides LDL Cholesterol Direct HDL Cholesterol Free T4 PTH Intact Urine WBC (Auto) Urine Creatinine Salicylates Acetaminophen Crossmatch 03/22/19 03/23/19 03/23/19 20:37 04:49 05:28 WBC 35.9 H RBC Hgb 10.8 L Hct 33.2 L RDW 15.5 H Plt Count 49 L Lymph % (Auto) [place] % (Auto) Lymph # Seg Neutrophils % Seg Neuts % (Manual) 81.0 H Lymphocytes % (Manual) 3.5 L Monocytes % (Manual) Nucleated RBC % Seg Neutrophils # Seg Neutrophils # Man 29.1 H Lymphocytes # (Manual) Monocytes # (Manual) 1.4 H PT INR D-Dimer Heparin Anti-Xa Level POC ABG pH 7.296 L ABG pH POC ABG pCO2 46.2 H POC ABG pO2 ABG pO2 ABG HCO3 ABG O2 Saturation ABG Base Excess ABG Hemoglobin Oxyhemoglobin Sodium 129 L Potassium 5.2 H Chloride 91.1 L Carbon Dioxide BUN 91 H Creatinine 6.6 H Glucose 190 H POC Glucose Lactic Acid Calcium 5.3 L* Ionized Calcium Phosphorus Magnesium Iron TIBC Ferritin Total Bilirubin 1.80 H Direct Bilirubin AST 80 H ALT 62 H Alkaline Phosphatase 209 H Total Creatine Kinase 9758 H CK-MB (CK-2) Troponin T C-Reactive Protein Total Protein 5.2 L Albumin 2.2 L Triglycerides LDL Cholesterol Direct HDL Cholesterol Free T4 PTH Intact Urine WBC (Auto) Urine Creatinine Salicylates Acetaminophen Crossmatch 03/23/19 03/23/19 03/23/19 05:28 05:31 11:33 WBC 29.7 H RBC 3.59 L Hgb 10.1 L Hct 31.1 L RDW 15.4 H Plt Count 47 L Lymph % (Auto) [place] % (Auto) Lymph # Seg Neutrophils % Seg Neuts % (Manual) 89.0 H Lymphocytes % (Manual) 6.0 L Monocytes % (Manual) Nucleated RBC % 1.0 H Seg Neutrophils # Seg Neutrophils # Man 26.4 H Lymphocytes # (Manual) Monocytes # (Manual) PT INR D-Dimer Heparin Anti-Xa Level POC ABG pH ABG pH POC ABG pCO2 POC ABG pO2 ABG pO2 ABG HCO3 ABG O2 Saturation ABG Base Excess ABG Hemoglobin Oxyhemoglobin Sodium Potassium Chloride Carbon Dioxide BUN Creatinine Glucose POC Glucose 122 H 113 H Lactic Acid Calcium Ionized Calcium Phosphorus Magnesium Iron TIBC Ferritin Total Bilirubin Direct Bilirubin AST ALT Alkaline Phosphatase Total Creatine Kinase CK-MB (CK-2) Troponin T C-Reactive Protein Total Protein Albumin Triglycerides LDL Cholesterol Direct HDL Cholesterol Free T4 PTH Intact Urine WBC (Auto) Urine Creatinine Salicylates Acetaminophen Crossmatch 03/23/19 03/24/19 03/24/19 17:47 00:00 04:50 WBC 35.0 H RBC Hgb 10.4 L Hct 32.4 L RDW Plt Count 60 L Lymph % (Auto) [place] % (Auto) Lymph # Seg Neutrophils % Seg Neuts % (Manual) 93.0 H Lymphocytes % (Manual) 5.0 L Monocytes % (Manual) Nucleated RBC % 7.0 H Seg Neutrophils # Seg Neutrophils # Man 32.6 H Lymphocytes # (Manual) Monocytes # (Manual) PT INR D-Dimer Heparin Anti-Xa Level POC ABG pH ABG pH POC ABG pCO2 POC ABG pO2 ABG pO2 ABG HCO3 ABG O2 Saturation ABG Base Excess ABG Hemoglobin Oxyhemoglobin Sodium Potassium Chloride Carbon Dioxide BUN Creatinine Glucose POC Glucose 111 H 108 H Lactic Acid Calcium Ionized Calcium Phosphorus Magnesium Iron TIBC Ferritin Total Bilirubin Direct Bilirubin AST ALT Alkaline Phosphatase Total Creatine Kinase CK-MB (CK-2) Troponin T C-Reactive Protein Total Protein Albumin Triglycerides LDL Cholesterol Direct HDL Cholesterol Free T4 PTH Intact Urine WBC (Auto) Urine Creatinine Salicylates Acetaminophen Crossmatch 03/24/19 03/24/19 03/24/19 04:50 05:06 12:55 WBC RBC Hgb Hct RDW Plt Count Lymph % (Auto) [place] % (Auto) Lymph # Seg Neutrophils % Seg Neuts % (Manual) Lymphocytes % (Manual) Monocytes % (Manual) Nucleated RBC % Seg Neutrophils # Seg Neutrophils # Man Lymphocytes # (Manual) Monocytes # (Manual) PT INR D-Dimer Heparin Anti-Xa Level POC ABG pH ABG pH POC ABG pCO2 POC ABG pO2 ABG pO2 ABG HCO3 ABG O2 Saturation ABG Base Excess ABG Hemoglobin Oxyhemoglobin Sodium 134 L Potassium 5.1 H Chloride 95.3 L Carbon Dioxide 21 L BUN 85 H Creatinine 6.4 H Glucose 109 H POC Glucose 112 H 110 H Lactic Acid Calcium 5.8 L* Ionized Calcium Phosphorus Magnesium Iron TIBC Ferritin Total Bilirubin Direct Bilirubin AST ALT Alkaline Phosphatase Total Creatine Kinase 5747 H CK-MB (CK-2) Troponin T C-Reactive Protein Total Protein Albumin Triglycerides LDL Cholesterol Direct HDL Cholesterol Free T4 PTH Intact Urine WBC (Auto) Urine Creatinine Salicylates Acetaminophen Crossmatch 03/24/19 03/25/19 03/25/19 23:29 05:00 05:00 WBC RBC Hgb Hct RDW Plt Count Lymph % (Auto) [place] % (Auto) Lymph # Seg Neutrophils % Seg Neuts % (Manual) Lymphocytes % (Manual) Monocytes % (Manual) Nucleated RBC % Seg Neutrophils # Seg Neutrophils # Man Lymphocytes # (Manual) Monocytes # (Manual) PT INR D-Dimer Heparin Anti-Xa Level POC ABG pH ABG pH POC ABG pCO2 POC ABG pO2 ABG pO2 ABG HCO3 ABG O2 Saturation ABG Base Excess ABG Hemoglobin Oxyhemoglobin Sodium 133 L Potassium Chloride 94.0 L Carbon Dioxide 21 L BUN 81 H Creatinine 6.4 H Glucose POC Glucose 109 H Lactic Acid Calcium 5.5 L* Ionized Calcium Phosphorus Magnesium Iron TIBC Ferritin Total Bilirubin Direct Bilirubin AST 80 H ALT Alkaline Phosphatase 202 H Total Creatine Kinase 3589 H CK-MB (CK-2) Troponin T C-Reactive Protein Total Protein 5.3 L Albumin 2.4 L Triglycerides LDL Cholesterol Direct HDL Cholesterol Free T4 PTH Intact 329.9 H Urine WBC (Auto) Urine Creatinine Salicylates Acetaminophen Crossmatch 03/25/19 03/25/19 03/26/19 05:00 06:30 04:30 WBC 23.3 H RBC 3.61 L Hgb 10.2 L Hct 31.2 L RDW Plt Count 57 L Lymph % (Auto) [place] % (Auto) Lymph # Seg Neutrophils % Seg Neuts % (Manual) 92.0 H Lymphocytes % (Manual) 6.0 L Monocytes % (Manual) Nucleated RBC % Seg Neutrophils # Seg Neutrophils # Man 21.4 H Lymphocytes # (Manual) Monocytes # (Manual) PT INR D-Dimer Heparin Anti-Xa Level POC ABG pH ABG pH 7.326 L POC ABG pCO2 POC ABG pO2 ABG pO2 109.5 H 137.4 H ABG HCO3 18.8 L 18.6 L ABG O2 Saturation ABG Base Excess -4.4 L -6.8 L ABG Hemoglobin 10.1 L 9.9 L Oxyhemoglobin Sodium Potassium Chloride Carbon Dioxide BUN Creatinine Glucose POC Glucose Lactic Acid Calcium Ionized Calcium Phosphorus Magnesium Iron TIBC Ferritin Total Bilirubin Direct Bilirubin AST ALT Alkaline Phosphatase Total Creatine Kinase CK-MB (CK-2) Troponin T C-Reactive Protein Total Protein Albumin Triglycerides LDL Cholesterol Direct HDL Cholesterol Free T4 PTH Intact Urine WBC (Auto) Urine Creatinine Salicylates Acetaminophen Crossmatch 03/26/19 03/26/19 03/26/19 23:22 Unknown Unknown WBC 19.5 H RBC 3.44 L Hgb 9.8 L Hct 29.9 L RDW Plt Count 85 L Lymph % (Auto) [place] % (Auto) Lymph # Seg Neutrophils % Seg Neuts % (Manual) 95.0 H Lymphocytes % (Manual) 3.0 L Monocytes % (Manual) Nucleated RBC % Seg Neutrophils # Seg Neutrophils # Man 18.5 H Lymphocytes # (Manual) 0.6 L Monocytes # (Manual) PT INR D-Dimer Heparin Anti-Xa Level POC ABG pH ABG pH POC ABG pCO2 POC ABG pO2 ABG pO2 ABG HCO3 ABG O2 Saturation ABG Base Excess ABG Hemoglobin Oxyhemoglobin Sodium 135 L Potassium 5.2 H D Chloride 92.2 L Carbon Dioxide 18 L BUN 109 H Creatinine 8.5 H Glucose 117 H POC Glucose 69 L Lactic Acid Calcium 4.5 L* D Ionized Calcium Phosphorus Magnesium Iron TIBC Ferritin Total Bilirubin Direct Bilirubin AST ALT Alkaline Phosphatase Total Creatine Kinase 4527 H CK-MB (CK-2) Troponin T C-Reactive Protein Total Protein Albumin Triglycerides LDL Cholesterol Direct HDL Cholesterol Free T4 PTH Intact Urine WBC (Auto) Urine Creatinine Salicylates Acetaminophen Crossmatch 03/27/19 03/27/19 03/27/19 04:30 04:30 09:00 WBC 19.2 H RBC 3.42 L Hgb 9.9 L Hct 30.0 L RDW Plt Count 84 L Lymph % (Auto) [place] % (Auto) Lymph # Seg Neutrophils % Seg Neuts % (Manual) Lymphocytes % (Manual) Monocytes % (Manual) Nucleated RBC % Seg Neutrophils # Seg Neutrophils # Man Lymphocytes # (Manual) Monocytes # (Manual) PT INR D-Dimer Heparin Anti-Xa Level POC ABG pH ABG pH POC ABG pCO2 POC ABG pO2 ABG pO2 ABG HCO3 ABG O2 Saturation ABG Base Excess ABG Hemoglobin Oxyhemoglobin Sodium 135 L Potassium Chloride 93.5 L Carbon Dioxide BUN 84 H Creatinine 7.1 H Glucose POC Glucose Lactic Acid Calcium 5.0 L* Ionized Calcium Phosphorus Magnesium Iron TIBC Ferritin Total Bilirubin Direct Bilirubin AST 78 H ALT Alkaline Phosphatase 135 H Total Creatine Kinase 4677 H CK-MB (CK-2) Troponin T C-Reactive Protein Total Protein 4.8 L Albumin 2.3 L Triglycerides 409 H LDL Cholesterol Direct HDL Cholesterol Free T4 PTH Intact Urine WBC (Auto) Urine Creatinine Salicylates Acetaminophen Crossmatch 03/27/19 03/27/19 03/27/19 12:37 14:15 14:15 WBC RBC Hgb 9.7 L Hct 29.5 L RDW Plt Count 87 L Lymph % (Auto) [place] % (Auto) Lymph # Seg Neutrophils % Seg Neuts % (Manual) Lymphocytes % (Manual) Monocytes % (Manual) Nucleated RBC % Seg Neutrophils # Seg Neutrophils # Man Lymphocytes # (Manual) Monocytes # (Manual) PT 15.9 H INR 1.30 H D-Dimer Heparin Anti-Xa Level POC ABG pH ABG pH POC ABG pCO2 POC ABG pO2 ABG pO2 ABG HCO3 ABG O2 Saturation ABG Base Excess ABG Hemoglobin Oxyhemoglobin Sodium Potassium Chloride Carbon Dioxide BUN Creatinine Glucose POC Glucose 129 H Lactic Acid Calcium Ionized Calcium Phosphorus Magnesium Iron TIBC Ferritin Total Bilirubin Direct Bilirubin AST ALT Alkaline Phosphatase Total Creatine Kinase CK-MB (CK-2) Troponin T C-Reactive Protein Total Protein Albumin Triglycerides LDL Cholesterol Direct HDL Cholesterol Free T4 PTH Intact Urine WBC (Auto) Urine Creatinine Salicylates Acetaminophen Crossmatch 03/27/19 03/27/19 03/27/19 18:00 19:22 19:23 WBC RBC Hgb Hct RDW Plt Count Lymph % (Auto) [place] % (Auto) Lymph # Seg Neutrophils % Seg Neuts % (Manual) Lymphocytes % (Manual) Monocytes % (Manual) Nucleated RBC % Seg Neutrophils # Seg Neutrophils # Man Lymphocytes # (Manual) Monocytes # (Manual) PT INR D-Dimer Heparin Anti-Xa Level < 0.10 L POC ABG pH ABG pH POC ABG pCO2 POC ABG pO2 ABG pO2 ABG HCO3 ABG O2 Saturation ABG Base Excess ABG Hemoglobin Oxyhemoglobin Sodium Potassium Chloride Carbon Dioxide BUN Creatinine Glucose POC Glucose 121 H Lactic Acid Calcium Ionized Calcium Phosphorus Magnesium Iron TIBC Ferritin Total Bilirubin Direct Bilirubin AST ALT Alkaline Phosphatase Total Creatine Kinase 4517 H CK-MB (CK-2) Troponin T C-Reactive Protein Total Protein Albumin Triglycerides LDL Cholesterol Direct HDL Cholesterol Free T4 PTH Intact Urine WBC (Auto) Urine Creatinine Salicylates Acetaminophen Crossmatch 03/27/19 03/27/19 03/28/19 22:10 23:52 03:49 WBC RBC Hgb Hct RDW Plt Count Lymph % (Auto) [place] % (Auto) Lymph # Seg Neutrophils % Seg Neuts % (Manual) Lymphocytes % (Manual) Monocytes % (Manual) Nucleated RBC % Seg Neutrophils # Seg Neutrophils # Man Lymphocytes # (Manual) Monocytes # (Manual) PT INR D-Dimer Heparin Anti-Xa Level POC ABG pH 7.338 L ABG pH POC ABG pCO2 33.1 L POC ABG pO2 ABG pO2 ABG HCO3 ABG O2 Saturation ABG Base Excess ABG Hemoglobin Oxyhemoglobin Sodium Potassium Chloride Carbon Dioxide BUN Creatinine Glucose POC Glucose 113 H 117 H Lactic Acid Calcium Ionized Calcium Phosphorus Magnesium Iron TIBC Ferritin Total Bilirubin Direct Bilirubin AST ALT Alkaline Phosphatase Total Creatine Kinase CK-MB (CK-2) Troponin T C-Reactive Protein Total Protein Albumin Triglycerides LDL Cholesterol Direct HDL Cholesterol Free T4 PTH Intact Urine WBC (Auto) Urine Creatinine Salicylates Acetaminophen Crossmatch 03/28/19 03/28/19 03/28/19 05:13 05:13 06:18 WBC RBC Hgb Hct RDW Plt Count Lymph % (Auto) [place] % (Auto) Lymph # Seg Neutrophils % Seg Neuts % (Manual) Lymphocytes % (Manual) Monocytes % (Manual) Nucleated RBC % Seg Neutrophils # Seg Neutrophils # Man Lymphocytes # (Manual) Monocytes # (Manual) PT INR D-Dimer Heparin Anti-Xa Level 0.23 L POC ABG pH ABG pH POC ABG pCO2 POC ABG pO2 ABG pO2 ABG HCO3 ABG O2 Saturation ABG Base Excess ABG Hemoglobin Oxyhemoglobin Sodium 135 L Potassium 5.5 H D Chloride 95.1 L Carbon Dioxide 16 L D BUN 129 H Creatinine 9.3 H Glucose 158 H POC Glucose 202 H Lactic Acid Calcium 4.0 L* D Ionized Calcium Phosphorus 12.40 H Magnesium Iron TIBC Ferritin Total Bilirubin Direct Bilirubin AST ALT Alkaline Phosphatase Total Creatine Kinase 4266 H CK-MB (CK-2) Troponin T C-Reactive Protein Total Protein Albumin Triglycerides LDL Cholesterol Direct HDL Cholesterol Free T4 PTH Intact Urine WBC (Auto) Urine Creatinine Salicylates Acetaminophen Crossmatch 03/28/19 03/28/19 03/28/19 08:25 10:00 12:00 WBC RBC Hgb 4.9 L* D Hct 15.4 L* D RDW Plt Count Lymph % (Auto) [place] % (Auto) Lymph # Seg Neutrophils % Seg Neuts % (Manual) Lymphocytes % (Manual) Monocytes % (Manual) Nucleated RBC % Seg Neutrophils # Seg Neutrophils # Man Lymphocytes # (Manual) Monocytes # (Manual) PT 17.9 H INR 1.52 H D-Dimer 4845.98 H Heparin Anti-Xa Level POC ABG pH ABG pH POC ABG pCO2 POC ABG pO2 ABG pO2 ABG HCO3 ABG O2 Saturation ABG Base Excess ABG Hemoglobin Oxyhemoglobin Sodium Potassium Chloride Carbon Dioxide BUN Creatinine Glucose POC Glucose Lactic Acid Calcium Ionized Calcium Phosphorus Magnesium Iron TIBC Ferritin Total Bilirubin Direct Bilirubin AST ALT Alkaline Phosphatase Total Creatine Kinase CK-MB (CK-2) Troponin T C-Reactive Protein Total Protein Albumin Triglycerides LDL Cholesterol Direct HDL Cholesterol Free T4 PTH Intact Urine WBC (Auto) Urine Creatinine Salicylates Acetaminophen Crossmatch See Detail 03/28/19 03/28/19 03/28/19 12:28 14:10 17:43 WBC RBC Hgb 5.9 L* Hct 18.3 L* RDW Plt Count Lymph % (Auto) [place] % (Auto) Lymph # Seg Neutrophils % Seg Neuts % (Manual) Lymphocytes % (Manual) Monocytes % (Manual) Nucleated RBC % Seg Neutrophils # Seg Neutrophils # Man Lymphocytes # (Manual) Monocytes # (Manual) PT INR D-Dimer Heparin Anti-Xa Level POC ABG pH ABG pH POC ABG pCO2 POC ABG pO2 ABG pO2 ABG HCO3 ABG O2 Saturation ABG Base Excess ABG Hemoglobin Oxyhemoglobin Sodium Potassium Chloride Carbon Dioxide BUN Creatinine Glucose POC Glucose 153 H 159 H Lactic Acid Calcium Ionized Calcium Phosphorus Magnesium Iron TIBC Ferritin Total Bilirubin Direct Bilirubin AST ALT Alkaline Phosphatase Total Creatine Kinase CK-MB (CK-2) Troponin T C-Reactive Protein Total Protein Albumin Triglycerides LDL Cholesterol Direct HDL Cholesterol Free T4 PTH Intact Urine WBC (Auto) Urine Creatinine Salicylates Acetaminophen Crossmatch 03/28/19 03/28/19 03/28/19 18:10 Unknown 23:59 WBC 24.8 H RBC 3.42 L Hgb 10.2 L D Hct 31.1 L D RDW 15.4 H Plt Count 54 L Lymph % (Auto) [place] % (Auto) Lymph # Seg Neutrophils % Seg Neuts % (Manual) 91.0 H Lymphocytes % (Manual) 8.0 L Monocytes % (Manual) Nucleated RBC % Seg Neutrophils # Seg Neutrophils # Man 22.6 H Lymphocytes # (Manual) Monocytes # (Manual) PT INR D-Dimer Heparin Anti-Xa Level POC ABG pH ABG pH POC ABG pCO2 POC ABG pO2 ABG pO2 ABG HCO3 ABG O2 Saturation ABG Base Excess ABG Hemoglobin Oxyhemoglobin Sodium Potassium 5.7 H Chloride Carbon Dioxide BUN Creatinine Glucose POC Glucose 107 H Lactic Acid Calcium Ionized Calcium Phosphorus Magnesium Iron TIBC Ferritin Total Bilirubin Direct Bilirubin AST ALT Alkaline Phosphatase Total Creatine Kinase CK-MB (CK-2) Troponin T C-Reactive Protein Total Protein Albumin Triglycerides LDL Cholesterol Direct HDL Cholesterol Free T4 PTH Intact Urine WBC (Auto) Urine Creatinine Salicylates Acetaminophen Crossmatch 03/29/19 03/29/19 03/29/19 04:29 05:46 06:22 WBC RBC Hgb 8.6 L Hct 25.7 L RDW Plt Count 93 L Lymph % (Auto) [place] % (Auto) Lymph # Seg Neutrophils % Seg Neuts % (Manual) Lymphocytes % (Manual) Monocytes % (Manual) Nucleated RBC % Seg Neutrophils # Seg Neutrophils # Man Lymphocytes # (Manual) Monocytes # (Manual) PT INR D-Dimer Heparin Anti-Xa Level POC ABG pH ABG pH POC ABG pCO2 32.2 L POC ABG pO2 ABG pO2 ABG HCO3 ABG O2 Saturation ABG Base Excess ABG Hemoglobin Oxyhemoglobin Sodium Potassium Chloride Carbon Dioxide BUN Creatinine Glucose POC Glucose 113 H Lactic Acid Calcium Ionized Calcium Phosphorus Magnesium Iron TIBC Ferritin Total Bilirubin Direct Bilirubin AST ALT Alkaline Phosphatase Total Creatine Kinase CK-MB (CK-2) Troponin T C-Reactive Protein Total Protein Albumin Triglycerides LDL Cholesterol Direct HDL Cholesterol Free T4 PTH Intact Urine WBC (Auto) Urine Creatinine Salicylates Acetaminophen Crossmatch 03/29/19 03/29/19 03/29/19 06:22 06:22 06:22 WBC 23.2 H RBC 2.91 L Hgb 8.6 L Hct 25.8 L RDW Plt Count 91 L Lymph % (Auto) [place] % (Auto) Lymph # Seg Neutrophils % Seg Neuts % (Manual) Lymphocytes % (Manual) Monocytes % (Manual) Nucleated RBC % Seg Neutrophils # Seg Neutrophils # Man Lymphocytes # (Manual) Monocytes # (Manual) PT INR D-Dimer Heparin Anti-Xa Level POC ABG pH ABG pH POC ABG pCO2 POC ABG pO2 ABG pO2 ABG HCO3 ABG O2 Saturation ABG Base Excess ABG Hemoglobin Oxyhemoglobin Sodium 133 L Potassium Chloride 93.8 L Carbon Dioxide 18 L BUN 109 H Creatinine 7.4 H Glucose 124 H POC Glucose Lactic Acid Calcium 4.6 L* Ionized Calcium Phosphorus Magnesium Iron TIBC Ferritin Total Bilirubin Direct Bilirubin AST ALT Alkaline Phosphatase Total Creatine Kinase 3401 H CK-MB (CK-2) Troponin T C-Reactive Protein Total Protein Albumin Triglycerides 309 H LDL Cholesterol Direct HDL Cholesterol Free T4 PTH Intact Urine WBC (Auto) Urine Creatinine Salicylates Acetaminophen Crossmatch 03/29/19 03/29/19 03/29/19 11:48 11:48 18:24 WBC RBC Hgb 7.8 L Hct 23.2 L RDW Plt Count Lymph % (Auto) [place] % (Auto) Lymph # Seg Neutrophils % Seg Neuts % (Manual) Lymphocytes % (Manual) Monocytes % (Manual) Nucleated RBC % Seg Neutrophils # Seg Neutrophils # Man Lymphocytes # (Manual) Monocytes # (Manual) PT 15.3 H INR 1.24 H D-Dimer Heparin Anti-Xa Level POC ABG pH ABG pH POC ABG pCO2 POC ABG pO2 ABG pO2 ABG HCO3 ABG O2 Saturation ABG Base Excess ABG Hemoglobin Oxyhemoglobin Sodium Potassium Chloride Carbon Dioxide BUN Creatinine Glucose POC Glucose 122 H Lactic Acid Calcium Ionized Calcium Phosphorus Magnesium Iron TIBC Ferritin Total Bilirubin Direct Bilirubin AST ALT Alkaline Phosphatase Total Creatine Kinase CK-MB (CK-2) Troponin T C-Reactive Protein Total Protein Albumin Triglycerides LDL Cholesterol Direct HDL Cholesterol Free T4 PTH Intact Urine WBC (Auto) Urine Creatinine Salicylates Acetaminophen Crossmatch 03/30/19 03/30/19 03/30/19 00:40 04:31 05:04 WBC RBC Hgb 7.6 L Hct 23.0 L RDW Plt Count Lymph % (Auto) [place] % (Auto) Lymph # Seg Neutrophils % Seg Neuts % (Manual) Lymphocytes % (Manual) Monocytes % (Manual) Nucleated RBC % Seg Neutrophils # Seg Neutrophils # Man Lymphocytes # (Manual) Monocytes # (Manual) PT INR D-Dimer Heparin Anti-Xa Level POC ABG pH 7.346 L ABG pH POC ABG pCO2 POC ABG pO2 62 L ABG pO2 ABG HCO3 ABG O2 Saturation ABG Base Excess ABG Hemoglobin Oxyhemoglobin Sodium Potassium Chloride Carbon Dioxide BUN 79 H Creatinine 6.4 H Glucose POC Glucose Lactic Acid Calcium 6.1 L D Ionized Calcium Phosphorus Magnesium Iron TIBC Ferritin Total Bilirubin Direct Bilirubin AST ALT Alkaline Phosphatase Total Creatine Kinase CK-MB (CK-2) Troponin T C-Reactive Protein Total Protein Albumin Triglycerides LDL Cholesterol Direct HDL Cholesterol Free T4 PTH Intact Urine WBC (Auto) Urine Creatinine Salicylates Acetaminophen Crossmatch 03/30/19 03/30/19 03/30/19 08:45 12:09 22:43 WBC 14.3 H RBC 2.33 L Hgb 7.0 L 7.4 L Hct 21.0 L 22.3 L RDW 15.6 H Plt Count 135 L Lymph % (Auto) [place] % (Auto) Lymph # Seg Neutrophils % Seg Neuts % (Manual) Lymphocytes % (Manual) Monocytes % (Manual) Nucleated RBC % Seg Neutrophils # Seg Neutrophils # Man Lymphocytes # (Manual) Monocytes # (Manual) PT INR D-Dimer Heparin Anti-Xa Level POC ABG pH ABG pH POC ABG pCO2 POC ABG pO2 ABG pO2 ABG HCO3 ABG O2 Saturation ABG Base Excess ABG Hemoglobin Oxyhemoglobin Sodium Potassium Chloride Carbon Dioxide BUN Creatinine Glucose POC Glucose Lactic Acid Calcium Ionized Calcium 3.7 L Phosphorus Magnesium Iron TIBC Ferritin Total Bilirubin Direct Bilirubin AST ALT Alkaline Phosphatase Total Creatine Kinase CK-MB (CK-2) Troponin T C-Reactive Protein Total Protein Albumin Triglycerides LDL Cholesterol Direct HDL Cholesterol Free T4 PTH Intact Urine WBC (Auto) Urine Creatinine Salicylates Acetaminophen Crossmatch 03/30/19 03/30/19 03/31/19 23:38 Unknown 04:44 WBC 11.5 H RBC 2.40 L Hgb 7.3 L Hct 21.9 L RDW 15.4 H Plt Count Lymph % (Auto) 10.6 L [place] % (Auto) Lymph # Seg Neutrophils % 81.7 H Seg Neuts % (Manual) Lymphocytes % (Manual) Monocytes % (Manual) Nucleated RBC % Seg Neutrophils # 9.4 H Seg Neutrophils # Man Lymphocytes # (Manual) Monocytes # (Manual) PT INR D-Dimer Heparin Anti-Xa Level POC ABG pH ABG pH POC ABG pCO2 POC ABG pO2 ABG pO2 ABG HCO3 ABG O2 Saturation ABG Base Excess ABG Hemoglobin Oxyhemoglobin Sodium Potassium Chloride Carbon Dioxide BUN Creatinine Glucose POC Glucose 155 H Lactic Acid Calcium Ionized Calcium Phosphorus Magnesium Iron TIBC Ferritin Total Bilirubin Direct Bilirubin 0.4 H AST 63 H ALT Alkaline Phosphatase Total Creatine Kinase CK-MB (CK-2) Troponin T C-Reactive Protein Total Protein 4.9 L Albumin 2.2 L Triglycerides LDL Cholesterol Direct HDL Cholesterol Free T4 PTH Intact Urine WBC (Auto) Urine Creatinine Salicylates Acetaminophen Crossmatch 03/31/19 03/31/19 03/31/19 04:44 05:44 08:20 WBC RBC Hgb Hct RDW Plt Count Lymph % (Auto) [place] % (Auto) Lymph # Seg Neutrophils % Seg Neuts % (Manual) Lymphocytes % (Manual) Monocytes % (Manual) Nucleated RBC % Seg Neutrophils # Seg Neutrophils # Man Lymphocytes # (Manual) Monocytes # (Manual) PT INR D-Dimer Heparin Anti-Xa Level POC ABG pH ABG pH POC ABG pCO2 53.5 H POC ABG pO2 62 L ABG pO2 ABG HCO3 ABG O2 Saturation ABG Base Excess ABG Hemoglobin Oxyhemoglobin Sodium 135 L Potassium Chloride 96.7 L Carbon Dioxide 19 L BUN 94 H Creatinine 7.8 H Glucose POC Glucose Lactic Acid Calcium 5.3 L* Ionized Calcium Phosphorus 8.20 H Magnesium Iron TIBC Ferritin Total Bilirubin Direct Bilirubin 0.4 H AST 60 H ALT Alkaline Phosphatase Total Creatine Kinase CK-MB (CK-2) Troponin T C-Reactive Protein Total Protein 4.8 L Albumin 2.1 L Triglycerides LDL Cholesterol Direct HDL Cholesterol Free T4 PTH Intact Urine WBC (Auto) Urine Creatinine Salicylates Acetaminophen Crossmatch 03/31/19 04/01/19 04/01/19 22:14 04:27 04:27 WBC RBC 2.60 L Hgb 8.0 L Hct 24.1 L RDW 15.7 H Plt Count Lymph % (Auto) 7.9 L [place] % (Auto) Lymph # 0.7 L Seg Neutrophils % 83.6 H Seg Neuts % (Manual) Lymphocytes % (Manual) Monocytes % (Manual) Nucleated RBC % Seg Neutrophils # Seg Neutrophils # Man Lymphocytes # (Manual) Monocytes # (Manual) PT INR D-Dimer Heparin Anti-Xa Level POC ABG pH 7.286 L ABG pH POC ABG pCO2 54.7 H POC ABG pO2 179 H ABG pO2 ABG HCO3 ABG O2 Saturation ABG Base Excess ABG Hemoglobin Oxyhemoglobin Sodium Potassium Chloride Carbon Dioxide BUN 68 H Creatinine 6.6 H Glucose POC Glucose Lactic Acid Calcium 6.5 L D Ionized Calcium Phosphorus 7.30 H Magnesium Iron TIBC Ferritin Total Bilirubin Direct Bilirubin AST ALT Alkaline Phosphatase Total Creatine Kinase 1652 H CK-MB (CK-2) Troponin T C-Reactive Protein Total Protein Albumin Triglycerides LDL Cholesterol Direct HDL Cholesterol Free T4 PTH Intact Urine WBC (Auto) Urine Creatinine Salicylates Acetaminophen Crossmatch 04/01/19 04/01/19 04/01/19 05:14 05:37 18:37 WBC RBC Hgb Hct RDW Plt Count Lymph % (Auto) [place] % (Auto) Lymph # Seg Neutrophils % Seg Neuts % (Manual) Lymphocytes % (Manual) Monocytes % (Manual) Nucleated RBC % Seg Neutrophils # Seg Neutrophils # Man Lymphocytes # (Manual) Monocytes # (Manual) PT INR D-Dimer Heparin Anti-Xa Level POC ABG pH 7.283 L ABG pH POC ABG pCO2 53.4 H POC ABG pO2 241 H ABG pO2 ABG HCO3 ABG O2 Saturation ABG Base Excess ABG Hemoglobin Oxyhemoglobin Sodium Potassium Chloride Carbon Dioxide BUN Creatinine Glucose POC Glucose 111 H 119 H Lactic Acid Calcium Ionized Calcium Phosphorus Magnesium Iron TIBC Ferritin Total Bilirubin Direct Bilirubin AST ALT Alkaline Phosphatase Total Creatine Kinase CK-MB (CK-2) Troponin T C-Reactive Protein Total Protein Albumin Triglycerides LDL Cholesterol Direct HDL Cholesterol Free T4 PTH Intact Urine WBC (Auto) Urine Creatinine Salicylates Acetaminophen Crossmatch 04/01/19 04/02/19 04/02/19 21:28 04:40 05:03 WBC RBC 2.36 L Hgb 7.2 L Hct 21.9 L RDW 16.0 H Plt Count Lymph % (Auto) 10.8 L [place] % (Auto) Lymph # 0.8 L Seg Neutrophils % 80.3 H Seg Neuts % (Manual) Lymphocytes % (Manual) Monocytes % (Manual) Nucleated RBC % Seg Neutrophils # Seg Neutrophils # Man Lymphocytes # (Manual) Monocytes # (Manual) PT INR D-Dimer Heparin Anti-Xa Level POC ABG pH 7.299 L 7.300 L ABG pH POC ABG pCO2 48.2 H 45.2 H POC ABG pO2 133 H 107 H ABG pO2 ABG HCO3 ABG O2 Saturation ABG Base Excess ABG Hemoglobin Oxyhemoglobin Sodium Potassium Chloride Carbon Dioxide BUN Creatinine Glucose POC Glucose Lactic Acid Calcium Ionized Calcium Phosphorus Magnesium Iron TIBC Ferritin Total Bilirubin Direct Bilirubin AST ALT Alkaline Phosphatase Total Creatine Kinase CK-MB (CK-2) Troponin T C-Reactive Protein Total Protein Albumin Triglycerides LDL Cholesterol Direct HDL Cholesterol Free T4 PTH Intact Urine WBC (Auto) Urine Creatinine Salicylates Acetaminophen Crossmatch 04/02/19 04/02/19 04/02/19 05:03 05:03 12:15 WBC RBC Hgb 7.4 L Hct 22.6 L RDW Plt Count Lymph % (Auto) [place] % (Auto) Lymph # Seg Neutrophils % Seg Neuts % (Manual) Lymphocytes % (Manual) Monocytes % (Manual) Nucleated RBC % Seg Neutrophils # Seg Neutrophils # Man Lymphocytes # (Manual) Monocytes # (Manual) PT INR D-Dimer Heparin Anti-Xa Level POC ABG pH ABG pH POC ABG pCO2 POC ABG pO2 ABG pO2 ABG HCO3 ABG O2 Saturation ABG Base Excess ABG Hemoglobin Oxyhemoglobin Sodium 136 L Potassium Chloride 97.8 L Carbon Dioxide 18 L BUN 82 H Creatinine 8.2 H Glucose POC Glucose Lactic Acid Calcium 6.7 L Ionized Calcium Phosphorus 7.50 H Magnesium Iron 26 L TIBC 138 L Ferritin 607.0 H Total Bilirubin Direct Bilirubin AST ALT Alkaline Phosphatase Total Creatine Kinase CK-MB (CK-2) Troponin T C-Reactive Protein Total Protein Albumin Triglycerides LDL Cholesterol Direct HDL Cholesterol Free T4 PTH Intact Urine WBC (Auto) Urine Creatinine Salicylates Acetaminophen Crossmatch 04/02/19 04/02/19 04/03/19 16:34 17:14 04:18 WBC RBC Hgb Hct RDW Plt Count Lymph % (Auto) [place] % (Auto) Lymph # Seg Neutrophils % Seg Neuts % (Manual) Lymphocytes % (Manual) Monocytes % (Manual) Nucleated RBC % Seg Neutrophils # Seg Neutrophils # Man Lymphocytes # (Manual) Monocytes # (Manual) PT INR D-Dimer Heparin Anti-Xa Level POC ABG pH ABG pH POC ABG pCO2 POC ABG pO2 146 H ABG pO2 ABG HCO3 ABG O2 Saturation ABG Base Excess ABG Hemoglobin Oxyhemoglobin Sodium Potassium Chloride Carbon Dioxide BUN Creatinine Glucose POC Glucose 108 H Lactic Acid Calcium Ionized Calcium Phosphorus Magnesium Iron TIBC Ferritin Total Bilirubin Direct Bilirubin AST ALT Alkaline Phosphatase Total Creatine Kinase CK-MB (CK-2) Troponin T C-Reactive Protein Total Protein Albumin Triglycerides LDL Cholesterol Direct HDL Cholesterol Free T4 PTH Intact Urine WBC (Auto) Urine Creatinine Salicylates Acetaminophen Crossmatch See Detail 04/03/19 04/03/19 04/03/19 04:25 08:30 18:24 WBC RBC 2.40 L Hgb 7.3 L Hct 21.9 L RDW Plt Count Lymph % (Auto) [place] % (Auto) 7.7 H Lymph # 0.9 L Seg Neutrophils % 74.6 H Seg Neuts % (Manual) Lymphocytes % (Manual) Monocytes % (Manual) Nucleated RBC % Seg Neutrophils # Seg Neutrophils # Man Lymphocytes # (Manual) Monocytes # (Manual) PT INR D-Dimer Heparin Anti-Xa Level POC ABG pH ABG pH POC ABG pCO2 POC ABG pO2 ABG pO2 ABG HCO3 ABG O2 Saturation ABG Base Excess ABG Hemoglobin Oxyhemoglobin Sodium 136 L Potassium Chloride 97.0 L Carbon Dioxide BUN 58 H Creatinine 7.3 H Glucose POC Glucose 106 H Lactic Acid Calcium 7.5 L Ionized Calcium Phosphorus 5.80 H D Magnesium Iron TIBC Ferritin Total Bilirubin Direct Bilirubin AST ALT Alkaline Phosphatase Total Creatine Kinase CK-MB (CK-2) Troponin T C-Reactive Protein Total Protein Albumin Triglycerides LDL Cholesterol Direct HDL Cholesterol Free T4 PTH Intact Urine WBC (Auto) Urine Creatinine Salicylates Acetaminophen Crossmatch 04/03/19 04/04/19 04/04/19 23:43 04:47 04:47 WBC RBC 2.72 L Hgb 8.3 L Hct 24.7 L RDW 15.6 H Plt Count Lymph % (Auto) [place] % (Auto) 10.1 H Lymph # 0.8 L Seg Neutrophils % 71.4 H Seg Neuts % (Manual) Lymphocytes % (Manual) Monocytes % (Manual) Nucleated RBC % Seg Neutrophils # Seg Neutrophils # Man Lymphocytes # (Manual) Monocytes # (Manual) PT INR D-Dimer Heparin Anti-Xa Level POC ABG pH ABG pH POC ABG pCO2 POC ABG pO2 ABG pO2 123.8 H ABG HCO3 ABG O2 Saturation ABG Base Excess -3.0 L ABG Hemoglobin 7.9 L Oxyhemoglobin Sodium 134 L Potassium Chloride 97.9 L Carbon Dioxide BUN 64 H Creatinine 8.1 H Glucose POC Glucose Lactic Acid Calcium 7.2 L Ionized Calcium Phosphorus Magnesium Iron TIBC Ferritin Total Bilirubin Direct Bilirubin AST ALT Alkaline Phosphatase Total Creatine Kinase CK-MB (CK-2) Troponin T C-Reactive Protein Total Protein Albumin Triglycerides LDL Cholesterol Direct HDL Cholesterol Free T4 PTH Intact Urine WBC (Auto) Urine Creatinine Salicylates Acetaminophen Crossmatch 04/04/19 04/04/19 06:07 13:40 WBC RBC Hgb Hct RDW Plt Count Lymph % (Auto) [place] % (Auto) Lymph # Seg Neutrophils % Seg Neuts % (Manual) Lymphocytes % (Manual) Monocytes % (Manual) Nucleated RBC % Seg Neutrophils # Seg Neutrophils # Man Lymphocytes # (Manual) Monocytes # (Manual) PT INR D-Dimer Heparin Anti-Xa Level POC ABG pH ABG pH POC ABG pCO2 POC ABG pO2 ABG pO2 95.9 H ABG HCO3 ABG O2 Saturation ABG Base Excess -3.0 L ABG Hemoglobin 8.5 L Oxyhemoglobin Sodium Potassium Chloride Carbon Dioxide BUN Creatinine Glucose POC Glucose 107 H Lactic Acid Calcium Ionized Calcium Phosphorus Magnesium Iron TIBC Ferritin Total Bilirubin Direct Bilirubin AST ALT Alkaline Phosphatase Total Creatine Kinase CK-MB (CK-2) Troponin T C-Reactive Protein Total Protein Albumin Triglycerides LDL Cholesterol Direct HDL Cholesterol Free T4 PTH Intact Urine WBC (Auto) Urine Creatinine Salicylates Acetaminophen Crossmatch
--- NOTE | 2019-04-04 16:04 | Progress Note ---
Assessment and Plan Assessment and plan: Patient is a 43-year-old man with history of GERD, obesity and mental illness who presented to [facility] ED on 03/16/2019 with altered mental status. He is visiting from [place] and was brought in by his friend. When he came to the ER, he was unable to speak or follow commands, in the ER he was found to have SVT with heart rate in the 250s. The patient was shocks and medicated. He became more confused and had trouble protecting his airway; therefore, he was then intubated. During this hospital coarse, he was found to have sepsis with septic shock, rhabdomyolysis, RUBEN, and multisystem organ failure. According to the patient's clinical findings, the patient likely has toxic metabolic encephalopathy. Acute hypoxic respiratory failure on mechanical ventilator greater than 96 hours , suspect ARDS: pulmonologis is following, trying to wean P.Afib/flutter with RVR: treated with IV Amiodorone, Cardiology is following Torsade sparkle points/ventricular tachycardia Acute combine heart failure, EF 40%: Cardiology input noted, continue amiodarone drip, no beta-adela or CHRISTIN given hypotension, will need ischemic cardiac stratification if he improves. Acute GI bleed, upper GI bleed due to PUD, EGD on 03/30 shows multiple ulcers, and large ulcer was rx with epi, unfortunately patient had melena again on 04/02, resolved, Protonix iv bid now Acute blood loss anemia, Transfused multiple units of PRBC, now improved, transfuse another unit as patient is actively bleeding Right IJ nonocclusive thrombosis, Discussed with vascular surgery, patient unable to tolerate anticoagulation due to thrombocytopenia and GI bleeding. Will monitor Septic shock with multiorgan failure, off pressors >48 hours: down to Levophed, continue to wean vasopressors Aspiration pneumonia: completed ABX Acute kidney injury, rhabdomyolysis, hyperkalemia due to ATN: Continue dialysis per nephrology Acute Metabolic Encephalopathy Severe metabolic acidosis, improved: monitoring BMP closely Rhabdomyolysis, CK trending down Thrombocytopenia, Likely due to sepsis, continue to monitor ?Right axillary edema: no abscess, US no collection seen DVT prophylaxis, no anticoagulation given multiple episodes of GI bleed and thrombocytopenia. SCDs Febrile: ID to evaluate, get blood cultures poor prognosis DNR CCT 33 minutes History Interval history: Patient was seen and examined. Follow-up on current diagnosis of resp failure. No overnight events reported to me. Imaging, nursing note, chart, labs and old chart reviewed. Patient intubated and sedated. Hospitalist Physical - Physical exam Narrative exam: Gen: critically ill, bmi 47, intubated and sedated HEENT: NCAT, EOMI, PERRL, OP eTT and NGt in place Neck: supple, no adenopathy, no thyromegaly, CVS/Heart: irregular irregular, normal S1S2, pulses present bilaterally Chest/Lungs: Symmetrical chest expansion, good air entry bilaterally GI/Abdomen: soft, NTND, good bowel sounds, no guarding or rebound /Bladder: no suprapubic tenderness, no CVA or paraspinal tenderness Extermity/Skin: dependent edema MSK: sedated Neuro: sedated Psych: sedated - Constitutional Vitals: Temp Pulse Resp BP Pulse Ox 101.5 F H 144 H 16 149/80 95 04/04/19 12:00 04/04/19 15:15 04/04/19 09:00 04/04/19 15:15 04/04/19 15:15 General appearance: Present: other (intubated) Results - Labs CBC & Chem 7: 04/04/19 04:47 04/04/19 04:47 Labs: Laboratory Last Values WBC 5.7 K/mm3 (4.5-11.0) 04/04/19 04:47 RBC 2.72 M/mm3 (3.65-5.03) L 04/04/19 04:47 Hgb 8.3 gm/dl (11.8-15.2) L 04/04/19 04:47 Hct 24.7 % (35.5-45.6) L 04/04/19 04:47 MCV 91 fl (84-94) 04/04/19 04:47 MCH 31 pg (28-32) 04/04/19 04:47 MCHC 34 % (32-34) 04/04/19 04:47 RDW 15.6 % (13.2-15.2) H 04/04/19 04:47 Plt Count 160 K/mm3 (140-440) 04/04/19 04:47 Lymph % (Auto) 14.4 % (13.4-35.0) 04/04/19 04:47 [place] % (Auto) 10.1 % (0.0-7.3) H 04/04/19 04:47 Eos % (Auto) 3.1 % (0.0-4.3) 04/04/19 04:47 Baso % (Auto) 1.0 % (0.0-1.8) 04/04/19 04:47 Lymph # 0.8 K/mm3 (1.2-5.4) L 04/04/19 04:47 [place] # 0.6 K/mm3 (0.0-0.8) 04/04/19 04:47 Eos # 0.2 K/mm3 (0.0-0.4) 04/04/19 04:47 Baso # 0.1 K/mm3 (0.0-0.1) 04/04/19 04:47 Add Manual Diff Complete 03/28/19 18:10 Total Counted 100 03/28/19 18:10 Seg Neutrophils % 71.4 % (40.0-70.0) H 04/04/19 04:47 Seg Neuts % (Manual) 91.0 % (40.0-70.0) H 03/28/19 18:10 Band Neutrophils % 0 % 03/28/19 18:10 Lymphocytes % (Manual) 8.0 % (13.4-35.0) L 03/28/19 18:10 Reactive Lymphs % (Man) 0 % 03/28/19 18:10 Monocytes % (Manual) 1.0 % (0.0-7.3) 03/28/19 18:10 Eosinophils % (Manual) 0 % (0.0-4.3) 03/28/19 18:10 Basophils % (Manual) 0 % (0.0-1.8) 03/28/19 18:10 Metamyelocytes % 0 % 03/28/19 18:10 Myelocytes % 0 % 03/28/19 18:10 Promyelocytes % 0 % 03/28/19 18:10 Blast Cells % 0 % 03/28/19 18:10 Nucleated RBC % Not Reportable 03/28/19 18:10 Seg Neutrophils # 4.0 K/mm3 (1.8-7.7) 04/04/19 04:47 Seg Neutrophils # Man 22.6 K/mm3 (1.8-7.7) H 03/28/19 18:10 Band Neutrophils # 0.0 K/mm3 03/28/19 18:10 Lymphocytes # (Manual) 2.0 K/mm3 (1.2-5.4) 03/28/19 18:10 Abs React Lymphs (Man) 0.0 K/mm3 03/28/19 18:10 Monocytes # (Manual) 0.2 K/mm3 (0.0-0.8) 03/28/19 18:10 Eosinophils # (Manual) 0.0 K/mm3 (0.0-0.4) 03/28/19 18:10 Basophils # (Manual) 0.0 K/mm3 (0.0-0.1) 03/28/19 18:10 Metamyelocytes # 0.0 K/mm3 03/28/19 18:10 Myelocytes # 0.0 K/mm3 03/28/19 18:10 Promyelocytes # 0.0 K/mm3 03/28/19 18:10 Blast Cells # 0.0 K/mm3 03/28/19 18:10 WBC Morphology Not Reportable 03/28/19 18:10 Hypersegmented Neuts Not Reportable 03/28/19 18:10 Hyposegmented Neuts Not Reportable 03/28/19 18:10 Hypogranular Neuts Not Reportable 03/28/19 18:10 Smudge Cells Not Reportable 03/28/19 18:10 Toxic Granulation Not Reportable 03/28/19 18:10 Toxic Vacuolation Not Reportable 03/28/19 18:10 Dohle Bodies Not Reportable 03/28/19 18:10 Pelger-Huet Anomaly Not Reportable 03/28/19 18:10 Joyce Rods Not Reportable 03/28/19 18:10 Platelet Estimate Appears decreased 03/28/19 18:10 Clumped Platelets Not Reportable 03/28/19 18:10 Plt Clumps, EDTA Not Reportable 03/28/19 18:10 Large Platelets Not Reportable 03/28/19 18:10 Giant Platelets Not Reportable 03/28/19 18:10 Platelet Satelliting Not Reportable 03/28/19 18:10 Plt Morphology Comment Not Reportable 03/28/19 18:10 RBC Morphology Not Reportable 03/28/19 18:10 Dimorphic RBCs Not Reportable 03/28/19 18:10 Polychromasia Not Reportable 03/28/19 18:10 Hypochromasia Not Reportable 03/28/19 18:10 Poikilocytosis Not Reportable 03/28/19 18:10 Anisocytosis Few 03/28/19 18:10 Microcytosis Not Reportable 03/28/19 18:10 Macrocytosis Not Reportable 03/28/19 18:10 Spherocytes Not Reportable 03/28/19 18:10 Pappenheimer Bodies Not Reportable 03/28/19 18:10 Sickle Cells Not Reportable 03/28/19 18:10 Target Cells Not Reportable 03/28/19 18:10 Tear Drop Cells Not Reportable 03/28/19 18:10 Ovalocytes Not Reportable 03/28/19 18:10 Stomatocytes Few 03/26/19 Unknown Helmet Cells Not Reportable 03/28/19 18:10 Shrestha-[place] Bodies Not Reportable 03/28/19 18:10 Jansen Rings Not Reportable 03/28/19 18:10 Samantha Cells Not Reportable 03/28/19 18:10 Bite Cells Not Reportable 03/28/19 18:10 Crenated Cell Not Reportable 03/28/19 18:10 Elliptocytes Not Reportable 03/28/19 18:10 Acanthocytes (Spur) Not Reportable 03/28/19 18:10 Rouleaux Not Reportable 03/28/19 18:10 Hemoglobin C Crystals Not Reportable 03/28/19 18:10 Schistocytes Not Reportable 03/28/19 18:10 Malaria parasites Not Reportable 03/28/19 18:10 Phil Bodies Not Reportable 03/28/19 18:10 Hem Pathologist Commnt No 03/28/19 18:10 PT 15.3 Sec. (12.2-14.9) H 03/29/19 11:48 INR 1.24 (0.87-1.13) H 03/29/19 11:48 APTT 26.6 Sec. (24.2-36.6) 03/28/19 12:00 Fibrinogen 226 mg/dl (211-480) 03/28/19 12:00 D-Dimer 4845.98 ng/mlDDU (0-234) H 03/28/19 12:00 Heparin Anti-Xa Level 0.23 U.I./ml (0.3-0.7) L 03/28/19 05:13 POC ABG pH 7.383 (7.35-7.45) 04/03/19 04:18 ABG pH 7.397 pH Units (7.350-7.450) 04/04/19 13:40 POC ABG pCO2 43.9 (35-45) 04/03/19 04:18 ABG pCO2 35.6 mm Hg 04/04/19 13:40 POC ABG pO2 146 (80-105) H 04/03/19 04:18 ABG pO2 95.9 mm Hg (80.0-90.0) H 04/04/19 13:40 POC ABG HCO3 26.1 (22-26 mml/L) 04/03/19 04:18 ABG HCO3 21.4 mmol/L (20.0-26.0) 04/04/19 13:40 POC ABG Total CO2 27 (23-27mmol/L) 04/03/19 04:18 POC ABG O2 Sat 99 04/03/19 04:18 ABG O2 Saturation 97.5 % (95.0-99.0) 04/04/19 13:40 ABG O2 Content 11.5 (0.0-44) 04/04/19 13:40 POC ABG Base Excess 1 ((-2) - (+3)mmol/L) 04/03/19 04:18 ABG Base Excess -3.0 mmol/L (-2.0-3.0) L 04/04/19 13:40 ABG Hemoglobin 8.5 gm/dl (14.0-18.0) L 04/04/19 13:40 ABG Carboxyhemoglobin 1.6 % (0.0-5.0) 04/04/19 13:40 ABG Methemoglobin 0.6 % (0.0-1.5) 04/04/19 13:40 Oxyhemoglobin 95.3 % (95.0-99.0) 04/04/19 13:40 FiO2 35 % 04/04/19 13:40 Sodium 134 mmol/L (137-145) L 04/04/19 04:47 Potassium 4.4 mmol/L (3.6-5.0) 04/04/19 04:47 Chloride 97.9 mmol/L (98-107) L 04/04/19 04:47 Carbon Dioxide 23 mmol/L (22-30) 04/04/19 04:47 Anion Gap 18 mmol/L 04/04/19 04:47 BUN 64 mg/dL (9-20) H 04/04/19 04:47 Creatinine 8.1 mg/dL (0.8-1.5) H 04/04/19 04:47 Estimated GFR 9 ml/min 04/04/19 04:47 BUN/Creatinine Ratio 8 % 04/04/19 04:47 Glucose 96 mg/dL (75-100) 04/04/19 04:47 POC Glucose 107 (70-105) H 04/04/19 06:07 Lactic Acid 1.90 mmol/L (0.7-2.0) 03/21/19 21:31 Calcium 7.2 mg/dL (8.4-10.2) L 04/04/19 04:47 Ionized Calcium 3.7 mg/dL (4.8-5.6) L 03/30/19 12:09 Phosphorus 5.80 mg/dL (2.5-4.5) H D 04/03/19 08:30 Magnesium 1.90 mg/dL (1.7-2.3) 03/31/19 15:07 Iron 26 ug/dL (49-181) L 04/02/19 05:03 TIBC 138 mcg/dL (250-450) L 04/02/19 05:03 Ferritin 607.0 ng/mL (13.0-400.0) H 04/02/19 05:03 Total Bilirubin 0.50 mg/dL (0.1-1.2) 03/31/19 08:20 Direct Bilirubin 0.4 mg/dL (0-0.2) H 03/31/19 08:20 Indirect Bilirubin 0.1 mg/dL 03/31/19 08:20 AST 60 units/L (5-40) H 03/31/19 08:20 ALT 30 units/L (7-56) 03/31/19 08:20 Alkaline Phosphatase 59 units/L (35-129) 03/31/19 08:20 Total Creatine Kinase 1652 units/L (55-170) H 04/01/19 04:27 CK-MB (CK-2) 54.3 ng/mL (0.0-4.0) H 03/17/19 07:16 CK-MB (CK-2) Rel Index 0.0 (0-4) 03/17/19 07:16 Troponin T 0.058 ng/mL (0.00-0.029) H 03/17/19 07:16 C-Reactive Protein 13.30 mg/dL (0.00-1.30) H 03/20/19 14:45 Total Protein 4.8 g/dL (6.3-8.2) L 03/31/19 08:20 Albumin 2.1 g/dL (3.9-5) L 03/31/19 08:20 Albumin/Globulin Ratio 0.8 % 03/31/19 08:20 Triglycerides 309 mg/dL (2-149) H 03/29/19 06:22 Cholesterol 88 mg/dL (50-199) 03/16/19 22:32 LDL Cholesterol Direct 10 mg/dL (50-130) L 03/16/19 22:32 HDL Cholesterol 7 mg/dL (40-59) L 03/16/19 22:32 Cholesterol/HDL Ratio 12.57 % 03/16/19 22:32 Procalcitonin 25.42 ng/mL (<0.15) 03/27/19 19:21 TSH 2.200 mlU/mL (0.270-4.200) 03/16/19 17:05 Free T4 0.72 ng/dL (0.76-1.46) L 03/16/19 17:05 PTH Intact 329.9 pg/mL (15-65) H 03/25/19 05:00 Urine Color Kathy (Yellow) 03/17/19 16:05 Urine Turbidity Cloudy (Clear) 03/17/19 16:05 Urine pH 5.0 (5.0-7.0) 03/17/19 16:05 Ur Specific Mobile 1.014 (1.003-1.030) 03/17/19 16:05 Urine Protein >500 mg/dL (Negative) 03/17/19 16:05 Urine Glucose (UA) 50 mg/dL (Negative) 03/17/19 16:05 Urine Ketones Tr mg/dL (Negative) 03/17/19 16:05 Urine Blood Lg (Negative) 03/17/19 16:05 Urine Nitrite Neg (Negative) 03/17/19 16:05 Urine Bilirubin Neg (Negative) 03/17/19 16:05 Urine Urobilinogen < 2.0 mg/dL (<2.0) 03/17/19 16:05 Ur Leukocyte Esterase Mod (Negative) 03/17/19 16:05 Urine WBC (Auto) 30.0 /HPF (0.0-6.0) H 03/17/19 16:05 Urine RBC (Auto) 11.0 /HPF (0.0-6.0) 03/17/19 16:05 U Epithel Cells (Auto) < 1.0 /HPF (0-13.0) 03/17/19 16:05 Urine Mucus Few /HPF 03/17/19 16:05 Urine Sperm 2+ /HPF (POT FILLER) 03/17/19 16:05 Urine Eosinophils None seen (None Seen) 03/17/19 16:05 Urine Creatinine 106.6 mg/dL (0.1-20.0) H 03/17/19 16:05 Urine Sodium 95 mmol/L 03/17/19 16:05 Vancomycin Trough 11.5 ug/mL (5.0-20.0) 03/18/19 13:19 Random Vancomycin 16.6 ug/mL (0-40.0) 03/30/19 04:31 Salicylates < 0.3 mg/dL (2.8-20.0) L 03/16/19 17:05 Urine Opiates Screen Presumptive negative 03/17/19 16:05 Urine Methadone Screen Presumptive negative 03/17/19 16:05 Acetaminophen < 5.0 ug/mL (10.0-30.0) L 03/16/19 17:05 Ur Barbiturates Screen Presumptive negative 03/17/19 16:05 Ur Phencyclidine Scrn Presumptive negative 03/17/19 16:05 Ur Amphetamines Screen Presumptive negative 03/17/19 16:05 U Benzodiazepines Scrn Presumptive positive 03/17/19 16:05 Urine Cocaine Screen Presumptive negative 03/17/19 16:05 U Marijuana (THC) Screen Presumptive negative 03/17/19 16:05 Drugs of Abuse Note Disclamer 03/17/19 16:05 Plasma/Serum Alcohol < 0.01 % (0-0.07) 03/16/19 17:05 Hepatitis A IgM Ab Non-reactive (NonReactive) 03/18/19 13:18 Hep Bs Antigen Non-reactive (Negative) 03/18/19 13:18 Hep B Core IgM Ab Non-reactive (NonReactive) 03/18/19 13:18 Hepatitis C Antibody Non-reactive (NonReactive) 03/18/19 13:18 HIV 1&2 Antibody Rapid Non react (Non React) 03/17/19 11:52 HIV P24 Antigen Non react (Non React) 03/17/19 11:52 Influenza A (Rapid) Negative (Negative) 03/17/19 17:00 Influenza B (Rapid) Negative (Negative) 03/17/19 17:00 Group A Strep Rapid Negative (Negative) 03/17/19 17:00 Miscellaneous Test Flexitest 1 03/21/19 12:00 Blood Type A POSITIVE 04/02/19 16:34 Antibody Screen Negative 04/02/19 16:34 Crossmatch See Detail 04/02/19 16:34 Active Medications - Current Medications Current Medications: Generic Name Dose Route Start Last Admin Trade Name Freq PRN Reason Stop Dose Admin Acetaminophen 650 mg 04/02/19 23:26 04/04/19 09:28 Tylenol PO 650 mg Q4H PRN Administration Pain, Mild (1-3),temp>100.5 Albuterol 2.5 mg 03/29/19 13:08 Proventil IH Q4HRT PRN Shortness Of Breath Amiodarone HCl 400 mg 04/04/19 12:00 04/04/19 14:20 Cordarone PO 400 mg TID PAOLO Administration Lipase/Protease/Amylase 1 each 03/17/19 14:[address] 10,500 Unit FEEDTUBE PRN PRN For Clogged Feeding Tube Calcium Acetate 1,334 mg 03/31/19 14:00 04/04/19 14:20 Phoslo PO 1,334 mg TID PAOLO Administration Dextrose 50 gm 03/19/19 18:39 03/26/19 23:26 D50w (25gm) Vial IV 50 gm PRN PRN Administration Hypoglycemia Epoetin Jet 20,000 unit 03/31/19 10:15 04/02/19 21:18 Procrit SUB-Q 20,000 unit NEYMAR PRN Administration hemodialysis Fentanyl 50 mcg 03/26/19 12:00 04/01/19 09:47 Sublimaze IV 50 mcg Q1H PRN Administration Pain, Moderate (4-6) Hydrophilic Ointment 1 applic 03/16/19 15:50 Vaseline Lip Therapy TP Q2HR PRN Dry Lips Phenylephrine HCl 100 mg/ 100 mls @ 3 mls/hr 03/17/19 02:30 03/19/19 18:48 Sodium Chloride IV Infused TITR PAOLO Titration Protocol 50 MCG/MIN Fentanyl Citrate 2,000 mcg in 100 mls @ 7.85 mls/hr 03/26/19 12:00 04/04/19 12:13 Fentanyl Drip Premix IV 1 mcg/kg/hr TITR PAOLO 7.85 mls/hr Administration Protocol 1 MCG/KG/HR Cefepime HCl 2 gm in 100 mls @ 200 mls/hr 03/27/19 14:00 04/03/19 16:30 Maxipime/Ns 2 Gm/100 Ml IV 04/05/19 14:29 200 mls/hr Q24H PAOLO Administration Protocol Norepinephrine 4 mg in 250 mls @ 7.5 mls/hr 03/27/19 22:16 04/03/19 15:00 Levophed Drip 4 Mg/Ns 250 Ml IV 0 mcg/min TITR PAOLO 0 mls/hr Titration Protocol 2 MCG/MIN Vasopressin 20 unit/ Sodium 101 mls @ 9.09 mls/hr 03/28/19 09:00 04/03/19 00:00 Chloride IV 0 units/min TITR PAOLO 0 mls/hr Titration Protocol 0.03 UNITS/MIN Amiodarone HCl 900 mg/ 500 mls @ 33.333 mls/hr 03/30/19 13:00 04/04/19 14:21 Dextrose IV 04/04/19 19:00 1 mg/min DIRECT PAOLO 33.333 mls/hr Administration Protocol 1 MG/MIN Sodium Chloride 100 mls @ 999 mls/hr 04/04/19 10:00 Nacl 0.9% IV NEYMAR PRN Hypotension Lorazepam 2 mg 03/26/19 11:54 04/02/19 05:42 Ativan IV 2 mg Q1H PRN Administration Agitation Metoclopramide HCl 5 mg 04/02/19 18:00 04/04/19 13:05 Reglan IV 5 mg Q6HR PAOLO Administration Multi-Ingred Cream/Lotion/Oil/Oint 1 applic 03/16/19 15:50 03/19/19 20:10 Artificial Tears Ophth Oint OU 1 applic Q4HR PRN Administration Dry Eye(s) Ondansetron HCl 4 mg 03/16/19 22:21 Zofran IV Q8H PRN Nausea And Vomiting Pantoprazole Sodium 40 mg 04/04/19 22:00 Protonix IV BID PAOLO Paricalcitol 2 mcg 03/30/19 10:00 04/04/19 09:29 Zemplar IV 2 mcg DAILY PAOLO Administration Simple Syrup 15 ml 03/17/19 14:45 03/26/19 23:19 Simple Syrup FEEDTUBE 15 ml PRN PRN Administration Hypoglycemia Simple Syrup 30 ml 03/17/19 14:45 Simple Syrup FEEDTUBE PRN PRN Hypoglycemia Sodium Bicarbonate 325 mg 03/17/19 14:45 Sodium Bicarbonate FEEDTUBE PRN PRN For Clogged Feeding Tube Nutrition/Malnutrition Assess - Dietary Evaluation Nutrition/Malnutrition Findings: Nutrition Notes Start: 03/17/19 14:22 Freq: Status: Active Protocol: Document 04/04/19 08:54 AIYANA (Rec: 04/04/19 09:41 AIYANA [email or web address]) Co-Sign 04/04/19 08:54 LM Nutrition Notes Initial or Follow up Reassessment Current Diagnosis Acute Kidney Injury Other Pertinent Diagnosis on HD, Septic shock,Multiple organ failure, encephalopathy, rhabdomyolysis Current Diet Nepro with Carbsteady at 55ml/ hr Labs/Tests Na 134 BUN 64 Cr 8.1 Pertinent Medications Reviewed Height 6 ft Weight 157.3 kg [place] Body Weight (kg) 80.90 BMI 47.0 Subjective/Other Information TF running at 10ml/hr Percent of energy/protein needs met: 18%/18% Burn Absent Trauma Absent Minimum of two criteria No #1 Nutrition Diagnosis Inadequate oral intake Diagnosis Progress(for reassessment Continues documentation) Is patient on ventilator? Yes Is Patient Ambulatory and/or Out of Bed No REE-([facility]-confined to bed) 2997.636 Kcal/Kg value to use for calculation 14 Approximate Energy Requirements Using 2202 kcal/Kg Calculation Used for Recommendations Kcal/kg Additional Notes Protein Needs: 202g (2.5g/kg IBW 80.9) Fluid Needs: 1 ml/kcal or per MD Nutrition Intervention Change Diet Order: Continue trickle feed until able to advance Nutrition Support: Nepro 1.8 at 10ml/hr Water flush 50ml q4hr Nepro 1.8 at 55 ml/hr Flush 100 ml q4hr for hyponatremia Kcal 432 Protein (gm) 19 Fluid (mL) 174 Goal #1 Advance TF to goal rate when medically feasible Goal #2 Meet at least 75% of energy and protein needs Anticipated Discharge Needs: Unable to determine at this time Follow-Up By: 04/06/19 Additional Comments F/U for TF advancement and goal rate
[2019-04-04] MEDS: CEFEPIME/NS 2 GM/100 ML 2 GM/100 ML BAG IV SCH (16:12)
--- NOTE | 2019-04-04 16:12 | Progress Note ---
Assessment and Plan Cultures: 03/16/2019 sputum: salivary contamination 03/16/2019 Blood culture: no growth 03/17/2019 Urine culture no growth 03/17/2019 throat culture: no growth 03/26/2019 Blood culture: no growth so far 03/27/2019 Blood culture negative. Assessment: 43y/o male with possible psych history admitted on 03/16/2019 with: 1) Septic shock: off pressors requirement. On amio gtt. continues with fevers? unclear etiology Placed on multiple pressors on 03/28 due to acute GI bleed and severe Hg drop at 4.4. Noted fever 105 after right IJ exchanged overwire on 03/27, fever is better; leukocytosis improving. Fever source is unclear - suspect IJ DVT ?thrombophlebitis, other ?NMS ?sinusitis, ?drug fever. Repeat blood culture no growth so far. Brain MRI shows no acute intracranial abnormality, mild nonspecific chronic white matter changes, fluid throughout the sinuses and mastoid air cells. Venous US + right IJ DVT. Initial septic shock - Possible Infectious etiology v/s possibility of Neuroleptic Malignant Syndrome given psych history, high fever of 105F and extremely elevated CPK of >100K. Unclear if he was on any psych med. From ID standpoint, we will continue broad coverage for acute bacterial meningitis, tick borne illness, aspiration pneumonia. Blood culture negative UA with mild pyuria. HIV rapid negative. Strep A rapid ag negative. No obvious infectious source identified yet. 2) Probable aspiration pneumonia: Already completed adequate abx. 3) Acute respiratory failure: on the vent. Improving. 4) ?Right axillary edema: no abscess, US no collection seen 5) Acute encephalopathy: improving, communicating CT head showed diffuse cerebral edema ?artifact. But too unstable for LP at this time. Low suspicion for HSV meningoencephalitis given the degree of his initial shock and clinical status. Given nationwide acyclovir shortage and low suspicion, would not recommend IV Ganciclovir at this time. 6) Acute renal failure: renally dosing all abx, now on HD 7) Elevated LFTs/shock liver: also likely elevated from Rhabdomyolysis. Viral he patitis panel negative. LFTs continue to improve. 8) Thrombocytopenia: multifactorial - better 9) Rhabdomyolysis: CK continues to improve 10) ?Enteritis: per CT ? no collection no perforation no obvious ischemic bowel. Gen. Surg following Recommendations: continue cefepime renally adjusted for 10 days from 03/27 monitor fevers Will follow. Risa Bryant MD Infectious Diseases [facility] ([facility]) M [phone] O [phone] Subjective Date of service: 04/04/19 Principal diagnosis: Septic Shock; Ac. hypoxemic resp failure; Renzo. PNA; Rhabdomyolysis; RUBEN Interval history: Remains off pressors on Amio gtt, still low grade fever 101.8, no new GI bleed Objective - Exam Narrative Exam: General appearance: alert intubated opening eyes following commands Eyes: pupils renzo contracted poorly reactive, no jaundice HENT: Atraumatic; oropharynx with ETT/OGT Neck: no JVD Lungs:distant BS CV: RRR Abdomen: Soft, non-tender Extremities: marked renzo leg edema/arm edema Skin:+skin tears, +scrotal edema Psych: follows commands no agitated Neuro: follows commands no agitated Right IJ cath - Constitutional Vitals: Vital Signs Temp Pulse Resp BP Pulse Ox 101.8 F H 144 H 16 149/80 95 04/04/19 16:00 04/04/19 15:15 04/04/19 09:00 04/04/19 15:15 04/04/19 15:15 Temperature -Last 24 Hours Temperature 101.8 F Temperature 101.5 F Temperature 101.5 F Temperature 100.1 F Temperature 100.5 F Temperature 99.6 F Temperature 98.7 F - Labs CBC & Chem 7: 04/04/19 04:47 04/04/19 04:47 Labs: Abnormal lab results 04/02/19 04/03/19 04/03/19 Range/Units 16:34 18:24 23:43 RBC (3.65-5.03) M/mm3 Hgb (11.8-15.2) gm/dl Hct (35.5-45.6) % RDW (13.2-15.2) % Lander % (Auto) (0.0-7.3) % Lymph # (1.2-5.4) K/mm3 Seg Neutrophils % (40.0-70.0) % ABG pO2 123.8 H (80.0-90.0) mm Hg ABG Base Excess -3.0 L (-2.0-3.0) mmol/L ABG Hemoglobin 7.9 L (14.0-18.0) gm/dl Sodium (137-145) mmol/L Chloride (98-107) mmol/L BUN (9-20) mg/dL Creatinine (0.8-1.5) mg/dL POC Glucose 106 H (70-105) Calcium (8.4-10.2) mg/dL Crossmatch See Detail 04/04/19 04/04/19 04/04/19 Range/Units 04:47 04:47 06:07 RBC 2.72 L (3.65-5.03) M/mm3 Hgb 8.3 L (11.8-15.2) gm/dl Hct 24.7 L (35.5-45.6) % RDW 15.6 H (13.2-15.2) % [place]ander % (Auto) 10.1 H (0.0-7.3) % Lymph # 0.8 L (1.2-5.4) K/mm3 Seg Neutrophils % 71.4 H (40.0-70.0) % ABG pO2 (80.0-90.0) mm Hg ABG Base Excess (-2.0-3.0) mmol/L ABG Hemoglobin (14.0-18.0) gm/dl Sodium 134 L (137-145) mmol/L Chloride 97.9 L (98-107) mmol/L BUN 64 H (9-20) mg/dL Creatinine 8.1 H (0.8-1.5) mg/dL POC Glucose 107 H (70-105) Calcium 7.2 L (8.4-10.2) mg/dL Crossmatch 04/04/19 Range/Units 13:40 RBC (3.65-5.03) M/mm3 Hgb (11.8-15.2) gm/dl Hct (35.5-45.6) % RDW (13.2-15.2) % Lander % (Auto) (0.0-7.3) % Lymph # (1.2-5.4) K/mm3 Seg Neutrophils % (40.0-70.0) % ABG pO2 95.9 H (80.0-90.0) mm Hg ABG Base Excess -3.0 L (-2.0-3.0) mmol/L ABG Hemoglobin 8.5 L (14.0-18.0) gm/dl Sodium (137-145) mmol/L Chloride (98-107) mmol/L BUN (9-20) mg/dL Creatinine (0.8-1.5) mg/dL POC Glucose (70-105) Calcium (8.4-10.2) mg/dL Crossmatch
[2019-04-04] MEDS: EPOETIN ALFA 20,000 UNIT/1 ML INJ SUB-Q PRN (19:15)
[2019-04-04] MEDS: PANTOPRAZOLE 40 MG INJ IV SCH (22:10)
[2019-04-05] MEDS: fentaNYL DRIP Premix 2,000 MCG/100 ML BAG IV SCH ×2 (00:46→06:46)
[2019-04-05] MEDS: METOCLOPRAMIDE 10 MG/2 ML INJ IV SCH ×4 (00:48→17:55)
[2019-04-05] MEDS: LORazepam 2 MG/ML VIAL IV PRN ×4 (01:04→17:55)
[2019-04-05] MEDS: ACETAMINOPHEN 325 MG TAB PO PRN ×3 (04:48→19:46)
[2019-04-05 05:21] LABS: Basophils % (Auto) 0.5 % (0.0-1.8); Eosinophils # (Auto) 0.1 K/mm3 (0.0-0.4); Eosinophils % (Auto) 2.5 % (0.0-4.3); Hematocrit 25.4 % (35.5-45.6); Hemoglobin 8.4 gm/dl (11.8-15.2); Lymphocytes # (Auto) 0.7 K/mm3 (1.2-5.4); Lymphocytes % (Auto) 14.8 % (13.4-35.0); Mean Corpuscular HGB Conc 33 % (32-34); Mean Corpuscular Volume 92 fl (84-94); Monocytes # (Auto) 0.5 K/mm3 (0.0-0.8); Monocytes % (Auto) 9.6 % (0.0-7.3); Platelet Count 133 K/mm3 (140-440); Red Blood Count 2.76 M/mm3 (3.65-5.03); Red Cell Distribution Width 15.8 % (13.2-15.2)
[2019-04-05 05:33] LABS: Calcium 7.7 mg/dL (8.4-10.2)
--- NOTE | 2019-04-05 07:04 | Progress Note ---
Assessment and Plan Severe sepsis with shock. Right axilla abscess versus localized pannus/fatty collection. Acute hypoxemic respiratory failure, on mechanical ventilator support. Likely aspiration pneumonia, bilateral. Morbid obesity. Acute kidney injury secondary to ATN on HD. Leukocytosis-resolved Elevated serum transaminases/possible shock liver. Acute encephalopathy, toxic metabolic Thrombocytopenia- etiology, multifactorial- improving RIJ non-occlusive thrombus Oropharyngeal dysphagia Acute blood loss anemia with hemorrhagic shock- resolved - keep on PRVC/AC -SBT today PSV and titrate to Tidal volumes >350 -CXR in the morning -wean FiO2 for O2 sats>92% -continue reglan , advance tube feeding as tolerated -Continue Seroquel 50mg qhs to help with agitation. -Monitor QTc as he is on multiple medications that can prolong QT -Antibiotics per ID, completes Cefepime today -Stop continuous sedation and monitor mental status. If needed use prn fentanyl for pain - continue HD/UF per nephrology - VAP bundle addressed -Aspiration precautions, HOB >40 - continue daily SAT's and SBT assessment as tolerated - prn analgesia per CPOT score - prn supportive blood transfusions to keep HgB > 7.0 - Monitor hemodynamics closely - continue mobility protocols and off loading as tolerated for pressure ulcer prevention - continue to avoid nephrotoxins, adjust all medications for GFR and CRCL - continue GI & VTE prophylaxis ( SCDs and therapeutic pantoprazole, dosed for renal function) - accuchecks with glycemic control per SSI for target BG of 140-180 mg/dl - continue other care per attending / other consultants Plan to reassess his mental status off fentanyl and then have another conversation with his brother re goals of care. CONDITION: CRITICAL PROGNOSIS: GUARDED CODE STATUS: DNAR Discussed extensively with RT/RN/ICU-IDT The high probability of a clinically significant, sudden or life threatening deterioration of the [respiratory, renal, neurologic and Cardiac] systems required my full and direct attention, intervention and personal management. The aggregate critical care time was 30 minutes. This time is in addition to time spent performing reported procedures but includes the following: [x] Data Review and interpretation [x] Patient assessment and monitoring of vital signs [x] Documentation [x] Medication orders and management Subjective Date of service: 04/05/19 Principal diagnosis: Metabolic Encephalopathy, GI bleed Interval history: Patient is seen today for: Severe sepsis with shock; Acute hypoxemic respiratory failure; Aspiration pneumonia; Morbid obesity; Rhabdomyolysis; Acute kidney injury; Morbid obesity; Elevated serum transaminases/possible shock liver; Acute encephalopathy (Toxic/Met) Seen and examined at bedside; 24hour events reviewed; nursing and respiratory care staff consulted; no adverse overnight events reported to me; resting peacefully in bed; remains off vasopressors; remains critically ill on MVS; Tolerating tube feedings, advancing by 10cc daily as tolerated- currently on 20cc/hour; Vitals, labs, medications, chart and imaging reviewed. On full MVS AC 25/500/8/35%. On going intermittent fevers, on fentnayl at 2mcg/hour. Had HD yesterday and tolerated it well Objective Vital Signs - 12hr 04/04/19 04/04/19 04/04/19 19:15 19:16 19:30 Temperature Pulse Rate 128 H 119 H 119 H Pulse Rate [ Left Radial] Respiratory Rate Blood Pressure 116/68 127/63 116/55 O2 Sat by Pulse 99 99 Oximetry O2 Sat by Pulse Oximetry [ Anterior Bilateral Throughout] 04/04/19 04/04/19 04/04/19 19:45 19:46 19:56 Temperature 97.7 F Pulse Rate 113 H 119 H Pulse Rate [ Left Radial] Respiratory Rate Blood Pressure 115/61 110/56 O2 Sat by Pulse 99 Oximetry O2 Sat by Pulse Oximetry [ Anterior Bilateral Throughout] 04/04/19 04/04/19 04/04/19 20:00 20:06 20:15 Temperature 101 F H 97.7 F Pulse Rate 140 H 131 H 120 H Pulse Rate [ 134 H Left Radial] Respiratory 13 Rate Blood Pressure 118/53 118/53 127/66 O2 Sat by Pulse 100 100 Oximetry O2 Sat by Pulse 99 Oximetry [ Anterior Bilateral Throughout] 04/04/19 04/04/19 04/04/19 20:16 20:30 20:46 Temperature Pulse Rate 141 H 132 H 129 H Pulse Rate [ Left Radial] Respiratory Rate Blood Pressure 104/62 129/69 105/64 O2 Sat by Pulse 100 99 99 Oximetry O2 Sat by Pulse Oximetry [ Anterior Bilateral Throughout] 04/04/19 04/04/19 04/04/19 21:00 21:16 21:30 Temperature Pulse Rate 138 H 125 H 128 H Pulse Rate [ Left Radial] Respiratory Rate Blood Pressure 105/64 115/66 126/63 O2 Sat by Pulse 99 99 98 Oximetry O2 Sat by Pulse Oximetry [ Anterior Bilateral Throughout] 04/04/19 04/04/19 04/04/19 21:46 22:00 22:16 Temperature Pulse Rate 128 H 124 H 132 H Pulse Rate [ Left Radial] Respiratory 14 Rate Blood Pressure 126/63 111/69 111/69 O2 Sat by Pulse 95 99 99 Oximetry O2 Sat by Pulse Oximetry [ Anterior Bilateral Throughout] 04/04/19 04/04/19 04/04/19 22:30 22:46 23:00 Temperature Pulse Rate 128 H 150 H 132 H Pulse Rate [ Left Radial] Respiratory 18 19 15 Rate Blood Pressure 105/75 105/75 110/74 O2 Sat by Pulse 99 99 99 Oximetry O2 Sat by Pulse Oximetry [ Anterior Bilateral Throughout] 04/04/19 04/04/19 04/04/19 23:16 23:30 23:46 Temperature Pulse Rate 140 H 133 H 125 H Pulse Rate [ Left Radial] Respiratory 23 16 15 Rate Blood Pressure 110/74 105/75 140/70 O2 Sat by Pulse 99 99 91 Oximetry O2 Sat by Pulse Oximetry [ Anterior Bilateral Throughout] 04/05/19 04/05/19 04/05/19 00:00 00:16 00:30 Temperature 100.2 F H Pulse Rate 158 H 151 H 141 H Pulse Rate [ 122 H Left Radial] Respiratory 15 16 16 Rate Blood Pressure 140/70 149/73 149/73 O2 Sat by Pulse 99 96 95 Oximetry O2 Sat by Pulse Oximetry [ Anterior Bilateral Throughout] 04/05/19 04/05/19 04/05/19 00:46 00:58 01:00 Temperature Pulse Rate 131 H 153 H 159 H Pulse Rate [ Left Radial] Respiratory 19 22 Rate Blood Pressure 132/65 132/65 132/65 O2 Sat by Pulse 97 95 94 Oximetry O2 Sat by Pulse Oximetry [ Anterior Bilateral Throughout] 04/05/19 04/05/19 04/05/19 01:16 01:30 01:46 Temperature Pulse Rate 148 H 141 H 141 H Pulse Rate [ Left Radial] Respiratory 17 17 17 Rate Blood Pressure 147/98 147/98 138/75 O2 Sat by Pulse 89 88 89 Oximetry O2 Sat by Pulse Oximetry [ Anterior Bilateral Throughout] 04/05/19 04/05/19 04/05/19 02:00 02:16 02:30 Temperature Pulse Rate 151 H 136 H 139 H Pulse Rate [ Left Radial] Respiratory 16 15 17 Rate Blood Pressure 138/75 103/52 102/10 O2 Sat by Pulse 98 97 92 Oximetry O2 Sat by Pulse Oximetry [ Anterior Bilateral Throughout] 04/05/19 04/05/19 04/05/19 02:46 03:00 03:16 Temperature Pulse Rate 134 H 131 H 136 H Pulse Rate [ Left Radial] Respiratory 17 17 16 Rate Blood Pressure 102/10 103/46 103/46 O2 Sat by Pulse 94 94 95 Oximetry O2 Sat by Pulse Oximetry [ Anterior Bilateral Throughout] 04/05/19 04/05/19 04/05/19 03:30 03:46 04:00 Temperature 101.0 F H Pulse Rate 129 H 141 H 130 H Pulse Rate [ 134 H Left Radial] Respiratory 15 15 15 Rate Blood Pressure 102/10 123/57 123/57 O2 Sat by Pulse 95 95 98 Oximetry O2 Sat by Pulse Oximetry [ Anterior Bilateral Throughout] 04/05/19 04/05/19 04/05/19 04:16 04:30 04:46 Temperature Pulse Rate 128 H 137 H 132 H Pulse Rate [ Left Radial] Respiratory 16 15 14 Rate Blood Pressure 135/57 135/57 81/54 O2 Sat by Pulse 96 96 98 Oximetry O2 Sat by Pulse Oximetry [ Anterior Bilateral Throughout] 04/05/19 04/05/19 04/05/19 05:00 05:07 05:16 Temperature Pulse Rate 133 H 135 H 136 H Pulse Rate [ Left Radial] Respiratory 15 16 Rate Blood Pressure 126/60 126/60 126/60 O2 Sat by Pulse 93 93 93 Oximetry O2 Sat by Pulse Oximetry [ Anterior Bilateral Throughout] 04/05/19 04/05/19 04/05/19 05:30 05:46 06:00 Temperature Pulse Rate 134 H 145 H 136 H Pulse Rate [ Left Radial] Respiratory 15 14 15 Rate Blood Pressure 133/61 133/61 136/69 O2 Sat by Pulse 97 90 94 Oximetry O2 Sat by Pulse Oximetry [ Anterior Bilateral Throughout] 04/05/19 04/05/19 04/05/19 06:16 06:30 06:46 Temperature Pulse Rate 154 H 146 H 132 H Pulse Rate [ Left Radial] Respiratory 13 14 15 Rate Blood Pressure 136/69 141/60 141/60 O2 Sat by Pulse 97 96 95 Oximetry O2 Sat by Pulse Oximetry [ Anterior Bilateral Throughout] Constitutional: no acute distress, other (middle aged morbidly obese CM, normocephalic with incresed respiratory effort on MVS) Eyes: icteric ENT: oropharynx moist, other (ETT 23-24 cm PEDRO, ulcers over his upper lip) Neck: supple, no lymphadenopathy, no JVD, other (large neck circumference) Effort: mildly labored Ascultation: Bilateral: diminished breath sounds, rales Percussion: Bilateral: not dull Cardiovascular: regular rate and rhythm, other ( S1,S2) Gastrointestinal: normoactive bowel sounds, soft, non-tender Integumentary: normal, other (blisters with some weeping over the extremities) Extremities: no cyanosis, pink and warm, pulses normal, no ischemia or petechiae Neurologic: non-focal exam (grossly), pupils equal and round, other (obeyed simple commands when SAT was done) Psychiatric: other (sedated at this time) CBC and BMP: 04/06/19 04:44 04/06/19 04:44 ABG, PT/INR, D-dimer: ABG POC ABG pH 7.380 (7.35-7.45) 04/05/19 05:28 ABG pH 7.397 pH Units (7.350-7.450) 04/04/19 13:40 POC ABG pCO2 44.0 (35-45) 04/05/19 05:28 ABG pCO2 35.6 mm Hg 04/04/19 13:40 POC ABG pO2 67 (80-105) L 04/05/19 05:28 ABG pO2 95.9 mm Hg (80.0-90.0) H 04/04/19 13:40 POC ABG HCO3 26.0 (22-26 mml/L) 04/05/19 05:28 POC ABG Total CO2 27 (23-27mmol/L) 04/05/19 05:28 POC ABG O2 Sat 92 04/05/19 05:28 ABG O2 Saturation 97.5 % (95.0-99.0) 04/04/19 13:40 PT/INR, D-dimer PT 15.3 Sec. (12.2-14.9) H 03/29/19 11:48 INR 1.24 (0.87-1.13) H 03/29/19 11:48 D-Dimer 4845.98 ng/mlDDU (0-234) H 03/28/19 12:00 Abnormal lab findings: Abnormal Labs 03/16/19 03/16/19 03/16/19 15:32 16:03 16:05 WBC 27.0 H RBC 5.55 H Hgb 15.7 H Hct 47.1 H RDW Plt Count 75 L Lymph % (Auto) [place] % (Auto) Lymph # Seg Neutrophils % Seg Neuts % (Manual) 85.0 H Lymphocytes % (Manual) 2.0 L Monocytes % (Manual) Nucleated RBC % Seg Neutrophils # Seg Neutrophils # Man 23.0 H Lymphocytes # (Manual) 0.5 L Monocytes # (Manual) PT INR D-Dimer Heparin Anti-Xa Level POC ABG pH ABG pH POC ABG pCO2 POC ABG pO2 ABG pO2 ABG HCO3 ABG O2 Saturation ABG Base Excess ABG Hemoglobin Oxyhemoglobin Sodium 127 L Potassium Chloride 87.8 L Carbon Dioxide 17 L BUN 49 H Creatinine 5.8 H Glucose 150 H POC Glucose 118 H Lactic Acid Calcium 6.6 L Ionized Calcium Phosphorus Magnesium 1.10 L Iron TIBC Ferritin Total Bilirubin Direct Bilirubin AST ALT Alkaline Phosphatase Total Creatine Kinase 43003 H CK-MB (CK-2) Troponin T C-Reactive Protein Total Protein Albumin Triglycerides LDL Cholesterol Direct HDL Cholesterol Free T4 PTH Intact Urine WBC (Auto) Urine Creatinine Salicylates Acetaminophen Crossmatch 03/16/19 03/16/19 03/16/19 16:59 17:05 17:05 WBC RBC Hgb Hct RDW Plt Count Lymph % (Auto) [place] % (Auto) Lymph # Seg Neutrophils % Seg Neuts % (Manual) Lymphocytes % (Manual) Monocytes % (Manual) Nucleated RBC % Seg Neutrophils # Seg Neutrophils # Man Lymphocytes # (Manual) Monocytes # (Manual) PT INR D-Dimer Heparin Anti-Xa Level POC ABG pH 7.297 L ABG pH POC ABG pCO2 33.0 L POC ABG pO2 ABG pO2 ABG HCO3 ABG O2 Saturation ABG Base Excess ABG Hemoglobin Oxyhemoglobin Sodium Potassium Chloride Carbon Dioxide BUN Creatinine Glucose POC Glucose Lactic Acid Calcium Ionized Calcium Phosphorus Magnesium Iron TIBC Ferritin Total Bilirubin Direct Bilirubin AST ALT Alkaline Phosphatase Total Creatine Kinase 95347 H CK-MB (CK-2) 83.1 H Troponin T C-Reactive Protein Total Protein Albumin Triglycerides LDL Cholesterol Direct HDL Cholesterol Free T4 0.72 L PTH Intact Urine WBC (Auto) Urine Creatinine Salicylates Acetaminophen Crossmatch 03/16/19 03/16/19 03/16/19 17:05 17:05 17:05 WBC RBC Hgb Hct RDW Plt Count Lymph % (Auto) [place] % (Auto) Lymph # Seg Neutrophils % Seg Neuts % (Manual) Lymphocytes % (Manual) Monocytes % (Manual) Nucleated RBC % Seg Neutrophils # Seg Neutrophils # Man Lymphocytes # (Manual) Monocytes # (Manual) PT INR D-Dimer Heparin Anti-Xa Level POC ABG pH ABG pH POC ABG pCO2 POC ABG pO2 ABG pO2 ABG HCO3 ABG O2 Saturation ABG Base Excess ABG Hemoglobin Oxyhemoglobin Sodium Potassium Chloride Carbon Dioxide BUN Creatinine Glucose POC Glucose Lactic Acid 5.10 H* Calcium Ionized Calcium Phosphorus Magnesium Iron TIBC Ferritin Total Bilirubin Direct Bilirubin AST ALT Alkaline Phosphatase Total Creatine Kinase CK-MB (CK-2) Troponin T C-Reactive Protein Total Protein Albumin Triglycerides LDL Cholesterol Direct HDL Cholesterol Free T4 PTH Intact Urine WBC (Auto) Urine Creatinine Salicylates < 0.3 L Acetaminophen < 5.0 L Crossmatch 03/16/19 03/16/19 03/16/19 17:05 17:05 20:35 WBC RBC Hgb Hct RDW Plt Count Lymph % (Auto) [place] % (Auto) Lymph # Seg Neutrophils % Seg Neuts % (Manual) Lymphocytes % (Manual) Monocytes % (Manual) Nucleated RBC % Seg Neutrophils # Seg Neutrophils # Man Lymphocytes # (Manual) Monocytes # (Manual) PT 15.9 H INR 1.30 H D-Dimer Heparin Anti-Xa Level POC ABG pH ABG pH POC ABG pCO2 POC ABG pO2 ABG pO2 ABG HCO3 ABG O2 Saturation ABG Base Excess ABG Hemoglobin Oxyhemoglobin Sodium Potassium Chloride Carbon Dioxide BUN Creatinine Glucose POC Glucose Lactic Acid 3.30 H* Calcium Ionized Calcium Phosphorus Magnesium Iron TIBC Ferritin Total Bilirubin 6.20 H Direct Bilirubin 5.9 H AST 800 H ALT 120 H Alkaline Phosphatase Total Creatine Kinase CK-MB (CK-2) Troponin T C-Reactive Protein Total Protein 4.4 L Albumin 2.4 L Triglycerides LDL Cholesterol Direct HDL Cholesterol Free T4 PTH Intact Urine WBC (Auto) Urine Creatinine Salicylates Acetaminophen Crossmatch 03/16/19 03/16/19 03/16/19 21:45 22:32 Unknown WBC RBC Hgb Hct RDW Plt Count Lymph % (Auto) [place] % (Auto) Lymph # Seg Neutrophils % Seg Neuts % (Manual) Lymphocytes % (Manual) Monocytes % (Manual) Nucleated RBC % Seg Neutrophils # Seg Neutrophils # Man Lymphocytes # (Manual) Monocytes # (Manual) PT INR D-Dimer Heparin Anti-Xa Level POC ABG pH ABG pH POC ABG pCO2 POC ABG pO2 ABG pO2 ABG HCO3 ABG O2 Saturation ABG Base Excess ABG Hemoglobin Oxyhemoglobin Sodium Potassium Chloride Carbon Dioxide BUN Creatinine Glucose POC Glucose Lactic Acid 3.30 H* 3.00 H* Calcium Ionized Calcium Phosphorus Magnesium Iron TIBC Ferritin Total Bilirubin Direct Bilirubin AST ALT Alkaline Phosphatase Total Creatine Kinase CK-MB (CK-2) Troponin T 0.047 H D C-Reactive Protein Total Protein Albumin Triglycerides 395 H LDL Cholesterol Direct 10 L HDL Cholesterol 7 L Free T4 PTH Intact Urine WBC (Auto) Urine Creatinine Salicylates Acetaminophen Crossmatch 03/17/19 03/17/19 03/17/19 03:45 03:45 03:45 WBC RBC Hgb Hct RDW Plt Count Lymph % (Auto) [place] % (Auto) Lymph # Seg Neutrophils % Seg Neuts % (Manual) Lymphocytes % (Manual) Monocytes % (Manual) Nucleated RBC % Seg Neutrophils # Seg Neutrophils # Man Lymphocytes # (Manual) Monocytes # (Manual) PT INR D-Dimer Heparin Anti-Xa Level POC ABG pH ABG pH POC ABG pCO2 POC ABG pO2 ABG pO2 ABG HCO3 ABG O2 Saturation ABG Base Excess ABG Hemoglobin Oxyhemoglobin Sodium 131 L Potassium Chloride 88.9 L Carbon Dioxide BUN 53 H Creatinine 7.1 H Glucose POC Glucose Lactic Acid 4.10 H* Calcium 5.4 L* D Ionized Calcium Phosphorus 7.30 H Magnesium 1.60 L Iron TIBC Ferritin Total Bilirubin 5.90 H Direct Bilirubin AST 801 H ALT 109 H Alkaline Phosphatase Total Creatine Kinase 86766 H 42626 H CK-MB (CK-2) 41.5 H Troponin T 0.054 H C-Reactive Protein Total Protein 4.5 L Albumin 2.0 L Triglycerides LDL Cholesterol Direct HDL Cholesterol Free T4 PTH Intact Urine WBC (Auto) Urine Creatinine Salicylates Acetaminophen Crossmatch 03/17/19 03/17/19 03/17/19 05:47 07:16 07:16 WBC RBC Hgb Hct RDW Plt Count Lymph % (Auto) [place] % (Auto) Lymph # Seg Neutrophils % Seg Neuts % (Manual) Lymphocytes % (Manual) Monocytes % (Manual) Nucleated RBC % Seg Neutrophils # Seg Neutrophils # Man Lymphocytes # (Manual) Monocytes # (Manual) PT INR D-Dimer Heparin Anti-Xa Level POC ABG pH 7.193 L ABG pH POC ABG pCO2 45.2 H POC ABG pO2 65 L ABG pO2 ABG HCO3 ABG O2 Saturation ABG Base Excess ABG Hemoglobin Oxyhemoglobin Sodium Potassium Chloride Carbon Dioxide BUN Creatinine Glucose POC Glucose Lactic Acid 5.50 H* Calcium Ionized Calcium Phosphorus Magnesium Iron TIBC Ferritin Total Bilirubin Direct Bilirubin AST ALT Alkaline Phosphatase Total Creatine Kinase 49112 H CK-MB (CK-2) 54.3 H Troponin T 0.058 H C-Reactive Protein Total Protein Albumin Triglycerides LDL Cholesterol Direct HDL Cholesterol Free T4 PTH Intact Urine WBC (Auto) Urine Creatinine Salicylates Acetaminophen Crossmatch 03/17/19 03/17/19 03/17/19 11:52 12:51 13:01 WBC RBC Hgb Hct RDW Plt Count Lymph % (Auto) [place] % (Auto) Lymph # Seg Neutrophils % Seg Neuts % (Manual) Lymphocytes % (Manual) Monocytes % (Manual) Nucleated RBC % Seg Neutrophils # Seg Neutrophils # Man Lymphocytes # (Manual) Monocytes # (Manual) PT INR D-Dimer Heparin Anti-Xa Level POC ABG pH 7.154 L ABG pH POC ABG pCO2 34.3 L POC ABG pO2 73 L ABG pO2 ABG HCO3 ABG O2 Saturation ABG Base Excess ABG Hemoglobin Oxyhemoglobin Sodium Potassium Chloride Carbon Dioxide BUN Creatinine Glucose POC Glucose 60 L Lactic Acid 8.20 H* Calcium Ionized Calcium Phosphorus Magnesium Iron TIBC Ferritin Total Bilirubin Direct Bilirubin AST ALT Alkaline Phosphatase Total Creatine Kinase CK-MB (CK-2) Troponin T C-Reactive Protein Total Protein Albumin Triglycerides LDL Cholesterol Direct HDL Cholesterol Free T4 PTH Intact Urine WBC (Auto) Urine Creatinine Salicylates Acetaminophen Crossmatch 03/17/19 03/17/19 03/17/19 14:37 14:37 14:37 WBC 29.3 H RBC Hgb Hct RDW 15.8 H Plt Count 45 L Lymph % (Auto) [place] % (Auto) Lymph # Seg Neutrophils % Seg Neuts % (Manual) 81.0 H Lymphocytes % (Manual) 1.0 L Monocytes % (Manual) 15.0 H Nucleated RBC % Seg Neutrophils # Seg Neutrophils # Man 23.7 H Lymphocytes # (Manual) 0.3 L Monocytes # (Manual) 4.4 H PT INR D-Dimer Heparin Anti-Xa Level POC ABG pH ABG pH POC ABG pCO2 POC ABG pO2 ABG pO2 ABG HCO3 ABG O2 Saturation ABG Base Excess ABG Hemoglobin Oxyhemoglobin Sodium Potassium Chloride Carbon Dioxide BUN Creatinine Glucose POC Glucose Lactic Acid 4.90 H* Calcium Ionized Calcium Phosphorus Magnesium Iron TIBC Ferritin Total Bilirubin Direct Bilirubin AST ALT Alkaline Phosphatase Total Creatine Kinase CK-MB (CK-2) Troponin T C-Reactive Protein 24.90 H Total Protein Albumin Triglycerides LDL Cholesterol Direct HDL Cholesterol Free T4 PTH Intact Urine WBC (Auto) Urine Creatinine Salicylates Acetaminophen Crossmatch 03/17/19 03/17/19 03/17/19 16:05 16:05 17:02 WBC RBC Hgb Hct RDW Plt Count Lymph % (Auto) [place] % (Auto) Lymph # Seg Neutrophils % Seg Neuts % (Manual) Lymphocytes % (Manual) Monocytes % (Manual) Nucleated RBC % Seg Neutrophils # Seg Neutrophils # Man Lymphocytes # (Manual) Monocytes # (Manual) PT INR D-Dimer Heparin Anti-Xa Level POC ABG pH 7.183 L ABG pH POC ABG pCO2 POC ABG pO2 65 L ABG pO2 ABG HCO3 ABG O2 Saturation ABG Base Excess ABG Hemoglobin Oxyhemoglobin Sodium Potassium Chloride Carbon Dioxide BUN Creatinine Glucose POC Glucose Lactic Acid Calcium Ionized Calcium Phosphorus Magnesium Iron TIBC Ferritin Total Bilirubin Direct Bilirubin AST ALT Alkaline Phosphatase Total Creatine Kinase CK-MB (CK-2) Troponin T C-Reactive Protein Total Protein Albumin Triglycerides LDL Cholesterol Direct HDL Cholesterol Free T4 PTH Intact Urine WBC (Auto) 30.0 H Urine Creatinine 106.6 H Salicylates Acetaminophen Crossmatch 03/18/19 03/18/19 03/18/19 05:12 05:16 05:53 WBC RBC Hgb Hct RDW Plt Count Lymph % (Auto) [place] % (Auto) Lymph # Seg Neutrophils % Seg Neuts % (Manual) Lymphocytes % (Manual) Monocytes % (Manual) Nucleated RBC % Seg Neutrophils # Seg Neutrophils # Man Lymphocytes # (Manual) Monocytes # (Manual) PT INR D-Dimer Heparin Anti-Xa Level POC ABG pH 7.257 L ABG pH POC ABG pCO2 31.6 L POC ABG pO2 69 L ABG pO2 ABG HCO3 ABG O2 Saturation ABG Base Excess ABG Hemoglobin Oxyhemoglobin Sodium Potassium Chloride Carbon Dioxide BUN Creatinine Glucose POC Glucose 141 H Lactic Acid 5.00 H* Calcium Ionized Calcium Phosphorus Magnesium Iron TIBC Ferritin Total Bilirubin Direct Bilirubin AST ALT Alkaline Phosphatase Total Creatine Kinase CK-MB (CK-2) Troponin T C-Reactive Protein Total Protein Albumin Triglycerides LDL Cholesterol Direct HDL Cholesterol Free T4 PTH Intact Urine WBC (Auto) Urine Creatinine Salicylates Acetaminophen Crossmatch 03/18/19 03/18/19 03/18/19 06:57 08:40 08:40 WBC 31.7 H RBC Hgb Hct RDW 15.5 H Plt Count 35 L Lymph % (Auto) [place] % (Auto) Lymph # Seg Neutrophils % Seg Neuts % (Manual) Lymphocytes % (Manual) Monocytes % (Manual) Nucleated RBC % Seg Neutrophils # Seg Neutrophils # Man Lymphocytes # (Manual) Monocytes # (Manual) PT INR D-Dimer Heparin Anti-Xa Level POC ABG pH ABG pH POC ABG pCO2 POC ABG pO2 ABG pO2 ABG HCO3 ABG O2 Saturation ABG Base Excess ABG Hemoglobin Oxyhemoglobin Sodium 132 L Potassium 5.5 H D Chloride 88.5 L Carbon Dioxide 18 L BUN 71 H Creatinine 8.1 H Glucose 205 H POC Glucose Lactic Acid 5.00 H* Calcium 4.1 L* D Ionized Calcium Phosphorus Magnesium 2.40 H Iron TIBC Ferritin Total Bilirubin 7.50 H Direct Bilirubin AST 1088 H ALT 159 H Alkaline Phosphatase 190 H Total Creatine Kinase 446006 H CK-MB (CK-2) Troponin T C-Reactive Protein Total Protein 4.7 L Albumin 1.8 L Triglycerides LDL Cholesterol Direct HDL Cholesterol Free T4 PTH Intact Urine WBC (Auto) Urine Creatinine Salicylates Acetaminophen Crossmatch 03/18/19 03/18/19 03/18/19 12:33 12:50 13:19 WBC RBC Hgb Hct RDW Plt Count Lymph % (Auto) [place] % (Auto) Lymph # Seg Neutrophils % Seg Neuts % (Manual) Lymphocytes % (Manual) Monocytes % (Manual) Nucleated RBC % Seg Neutrophils # Seg Neutrophils # Man Lymphocytes # (Manual) Monocytes # (Manual) PT INR D-Dimer Heparin Anti-Xa Level POC ABG pH 7.282 L ABG pH POC ABG pCO2 POC ABG pO2 67 L ABG pO2 ABG HCO3 ABG O2 Saturation ABG Base Excess ABG Hemoglobin Oxyhemoglobin Sodium Potassium Chloride Carbon Dioxide BUN Creatinine Glucose POC Glucose 129 H Lactic Acid 3.30 H* Calcium Ionized Calcium Phosphorus Magnesium Iron TIBC Ferritin Total Bilirubin Direct Bilirubin AST ALT Alkaline Phosphatase Total Creatine Kinase CK-MB (CK-2) Troponin T C-Reactive Protein Total Protein Albumin Triglycerides LDL Cholesterol Direct HDL Cholesterol Free T4 PTH Intact Urine WBC (Auto) Urine Creatinine Salicylates Acetaminophen Crossmatch 03/18/19 03/18/19 03/18/19 13:19 16:50 18:11 WBC RBC Hgb Hct RDW Plt Count Lymph % (Auto) [place] % (Auto) Lymph # Seg Neutrophils % Seg Neuts % (Manual) Lymphocytes % (Manual) Monocytes % (Manual) Nucleated RBC % Seg Neutrophils # Seg Neutrophils # Man Lymphocytes # (Manual) Monocytes # (Manual) PT INR D-Dimer Heparin Anti-Xa Level POC ABG pH ABG pH POC ABG pCO2 POC ABG pO2 59 L ABG pO2 ABG HCO3 ABG O2 Saturation ABG Base Excess ABG Hemoglobin Oxyhemoglobin Sodium Potassium Chloride Carbon Dioxide BUN Creatinine Glucose POC Glucose 151 H Lactic Acid Calcium 4.2 L* Ionized Calcium Phosphorus Magnesium Iron TIBC Ferritin Total Bilirubin Direct Bilirubin AST ALT Alkaline Phosphatase Total Creatine Kinase 810786 H CK-MB (CK-2) Troponin T C-Reactive Protein Total Protein Albumin Triglycerides LDL Cholesterol Direct HDL Cholesterol Free T4 PTH Intact Urine WBC (Auto) Urine Creatinine Salicylates Acetaminophen Crossmatch 03/18/19 03/18/19 03/19/19 18:20 23:39 01:42 WBC RBC Hgb Hct RDW Plt Count Lymph % (Auto) [place] % (Auto) Lymph # Seg Neutrophils % Seg Neuts % (Manual) Lymphocytes % (Manual) Monocytes % (Manual) Nucleated RBC % Seg Neutrophils # Seg Neutrophils # Man Lymphocytes # (Manual) Monocytes # (Manual) PT INR D-Dimer Heparin Anti-Xa Level POC ABG pH 7.345 L ABG pH 7.285 L POC ABG pCO2 POC ABG pO2 59 L ABG pO2 44.0 L ABG HCO3 ABG O2 Saturation 70.9 L ABG Base Excess -5.7 L ABG Hemoglobin 11.9 L Oxyhemoglobin 69.6 L Sodium Potassium Chloride Carbon Dioxide BUN Creatinine Glucose POC Glucose 152 H Lactic Acid Calcium Ionized Calcium Phosphorus Magnesium Iron TIBC Ferritin Total Bilirubin Direct Bilirubin AST ALT Alkaline Phosphatase Total Creatine Kinase CK-MB (CK-2) Troponin T C-Reactive Protein Total Protein Albumin Triglycerides LDL Cholesterol Direct HDL Cholesterol Free T4 PTH Intact Urine WBC (Auto) Urine Creatinine Salicylates Acetaminophen Crossmatch 03/19/19 03/19/19 03/19/19 04:00 04:00 05:35 WBC 36.5 H RBC Hgb Hct RDW 15.8 H Plt Count 35 L Lymph % (Auto) [place] % (Auto) Lymph # Seg Neutrophils % Seg Neuts % (Manual) Lymphocytes % (Manual) Monocytes % (Manual) Nucleated RBC % Seg Neutrophils # Seg Neutrophils # Man Lymphocytes # (Manual) Monocytes # (Manual) PT INR D-Dimer Heparin Anti-Xa Level POC ABG pH ABG pH 7.265 L POC ABG pCO2 POC ABG pO2 ABG pO2 35.4 L* ABG HCO3 ABG O2 Saturation 54.4 L ABG Base Excess -6.7 L ABG Hemoglobin 12.9 L Oxyhemoglobin 53.4 L Sodium 132 L Potassium 5.7 H Chloride 89.8 L Carbon Dioxide 19 L BUN 62 H Creatinine 6.4 H Glucose 151 H POC Glucose Lactic Acid Calcium 5.2 L* D Ionized Calcium Phosphorus Magnesium Iron TIBC Ferritin Total Bilirubin 7.80 H Direct Bilirubin AST 682 H ALT 130 H Alkaline Phosphatase 167 H Total Creatine Kinase CK-MB (CK-2) Troponin T C-Reactive Protein Total Protein 4.8 L Albumin 2.3 L Triglycerides LDL Cholesterol Direct HDL Cholesterol Free T4 PTH Intact Urine WBC (Auto) Urine Creatinine Salicylates Acetaminophen Crossmatch 03/19/19 03/19/19 03/19/19 05:49 09:16 09:50 WBC RBC Hgb Hct RDW Plt Count Lymph % (Auto) [place] % (Auto) Lymph # Seg Neutrophils % Seg Neuts % (Manual) Lymphocytes % (Manual) Monocytes % (Manual) Nucleated RBC % Seg Neutrophils # Seg Neutrophils # Man Lymphocytes # (Manual) Monocytes # (Manual) PT INR D-Dimer Heparin Anti-Xa Level POC ABG pH 7.222 L ABG pH POC ABG pCO2 56.6 H POC ABG pO2 ABG pO2 ABG HCO3 ABG O2 Saturation ABG Base Excess ABG Hemoglobin Oxyhemoglobin Sodium Potassium Chloride Carbon Dioxide BUN Creatinine Glucose POC Glucose 154 H Lactic Acid 2.70 H* Calcium Ionized Calcium Phosphorus Magnesium Iron TIBC Ferritin Total Bilirubin Direct Bilirubin AST ALT Alkaline Phosphatase Total Creatine Kinase CK-MB (CK-2) Troponin T C-Reactive Protein Total Protein Albumin Triglycerides LDL Cholesterol Direct HDL Cholesterol Free T4 PTH Intact Urine WBC (Auto) Urine Creatinine Salicylates Acetaminophen Crossmatch 03/19/19 03/19/19 03/19/19 09:50 11:28 17:58 WBC RBC Hgb Hct RDW Plt Count Lymph % (Auto) [place] % (Auto) Lymph # Seg Neutrophils % Seg Neuts % (Manual) Lymphocytes % (Manual) Monocytes % (Manual) Nucleated RBC % Seg Neutrophils # Seg Neutrophils # Man Lymphocytes # (Manual) Monocytes # (Manual) PT INR D-Dimer Heparin Anti-Xa Level POC ABG pH 7.250 L ABG pH POC ABG pCO2 52.6 H POC ABG pO2 ABG pO2 ABG HCO3 ABG O2 Saturation ABG Base Excess ABG Hemoglobin Oxyhemoglobin Sodium Potassium Chloride Carbon Dioxide BUN Creatinine Glucose POC Glucose 160 H Lactic Acid Calcium Ionized Calcium Phosphorus Magnesium Iron TIBC Ferritin Total Bilirubin Direct Bilirubin AST ALT Alkaline Phosphatase Total Creatine Kinase 69621 H CK-MB (CK-2) Troponin T C-Reactive Protein Total Protein Albumin Triglycerides LDL Cholesterol Direct HDL Cholesterol Free T4 PTH Intact Urine WBC (Auto) Urine Creatinine Salicylates Acetaminophen Crossmatch 03/19/19 03/19/19 03/20/19 19:48 21:03 02:16 WBC RBC Hgb Hct RDW Plt Count Lymph % (Auto) [place] % (Auto) Lymph # Seg Neutrophils % Seg Neuts % (Manual) Lymphocytes % (Manual) Monocytes % (Manual) Nucleated RBC % Seg Neutrophils # Seg Neutrophils # Man Lymphocytes # (Manual) Monocytes # (Manual) PT INR D-Dimer Heparin Anti-Xa Level POC ABG pH 7.279 L ABG pH POC ABG pCO2 50.3 H POC ABG pO2 129 H ABG pO2 ABG HCO3 ABG O2 Saturation ABG Base Excess ABG Hemoglobin Oxyhemoglobin Sodium Potassium Chloride Carbon Dioxide BUN Creatinine Glucose POC Glucose 119 H 119 H Lactic Acid Calcium Ionized Calcium Phosphorus Magnesium Iron TIBC Ferritin Total Bilirubin Direct Bilirubin AST ALT Alkaline Phosphatase Total Creatine Kinase CK-MB (CK-2) Troponin T C-Reactive Protein Total Protein Albumin Triglycerides LDL Cholesterol Direct HDL Cholesterol Free T4 PTH Intact Urine WBC (Auto) Urine Creatinine Salicylates Acetaminophen Crossmatch 09/24/19 09/24/19 09/24/19 04:23 05:05 09:30 WBC 36.3 H RBC Hgb Hct RDW 15.5 H Plt Count 29 L Lymph % (Auto) [place] % (Auto) Lymph # Seg Neutrophils % Seg Neuts % (Manual) Lymphocytes % (Manual) Monocytes % (Manual) Nucleated RBC % Seg Neutrophils # Seg Neutrophils # Man Lymphocytes # (Manual) Monocytes # (Manual) PT INR D-Dimer Heparin Anti-Xa Level POC ABG pH ABG pH POC ABG pCO2 POC ABG pO2 280 H ABG pO2 ABG HCO3 ABG O2 Saturation ABG Base Excess ABG Hemoglobin Oxyhemoglobin Sodium Potassium Chloride Carbon Dioxide BUN Creatinine Glucose POC Glucose 115 H Lactic Acid Calcium Ionized Calcium Phosphorus Magnesium Iron TIBC Ferritin Total Bilirubin Direct Bilirubin AST ALT Alkaline Phosphatase Total Creatine Kinase CK-MB (CK-2) Troponin T C-Reactive Protein Total Protein Albumin Triglycerides LDL Cholesterol Direct HDL Cholesterol Free T4 PTH Intact Urine WBC (Auto) Urine Creatinine Salicylates Acetaminophen Crossmatch 03/20/19 03/20/19 03/20/19 09:30 09:30 11:34 WBC RBC Hgb Hct RDW Plt Count Lymph % (Auto) [place] % (Auto) Lymph # Seg Neutrophils % Seg Neuts % (Manual) Lymphocytes % (Manual) Monocytes % (Manual) Nucleated RBC % Seg Neutrophils # Seg Neutrophils # Man Lymphocytes # (Manual) Monocytes # (Manual) PT INR D-Dimer Heparin Anti-Xa Level POC ABG pH ABG pH POC ABG pCO2 POC ABG pO2 ABG pO2 ABG HCO3 ABG O2 Saturation ABG Base Excess ABG Hemoglobin Oxyhemoglobin Sodium 131 L Potassium Chloride 92.3 L Carbon Dioxide 20 L BUN 68 H Creatinine 6.1 H Glucose 164 H POC Glucose 141 H Lactic Acid Calcium 5.3 L* Ionized Calcium Phosphorus Magnesium Iron TIBC Ferritin Total Bilirubin 9.50 H Direct Bilirubin AST 381 H ALT 116 H Alkaline Phosphatase 255 H Total Creatine Kinase 65670 H CK-MB (CK-2) Troponin T C-Reactive Protein Total Protein 5.1 L Albumin 2.3 L Triglycerides LDL Cholesterol Direct HDL Cholesterol Free T4 PTH Intact Urine WBC (Auto) Urine Creatinine Salicylates Acetaminophen Crossmatch 03/20/19 03/20/19 03/20/19 14:41 14:45 18:50 WBC RBC Hgb Hct RDW Plt Count Lymph % (Auto) [place] % (Auto) Lymph # Seg Neutrophils % Seg Neuts % (Manual) Lymphocytes % (Manual) Monocytes % (Manual) Nucleated RBC % Seg Neutrophils # Seg Neutrophils # Man Lymphocytes # (Manual) Monocytes # (Manual) PT INR D-Dimer Heparin Anti-Xa Level POC ABG pH ABG pH POC ABG pCO2 POC ABG pO2 ABG pO2 ABG HCO3 ABG O2 Saturation ABG Base Excess ABG Hemoglobin Oxyhemoglobin Sodium Potassium Chloride Carbon Dioxide BUN Creatinine Glucose POC Glucose 117 H Lactic Acid 2.90 H* Calcium Ionized Calcium Phosphorus Magnesium Iron TIBC Ferritin Total Bilirubin Direct Bilirubin AST ALT Alkaline Phosphatase Total Creatine Kinase CK-MB (CK-2) Troponin T C-Reactive Protein 13.30 H Total Protein Albumin Triglycerides LDL Cholesterol Direct HDL Cholesterol Free T4 PTH Intact Urine WBC (Auto) Urine Creatinine Salicylates Acetaminophen Crossmatch 03/20/19 03/21/19 03/21/19 21:55 04:26 04:26 WBC 37.8 H RBC Hgb Hct RDW 15.4 H Plt Count 36 L Lymph % (Auto) [place] % (Auto) Lymph # Seg Neutrophils % Seg Neuts % (Manual) 93.0 H Lymphocytes % (Manual) 3.0 L Monocytes % (Manual) Nucleated RBC % 1.0 H Seg Neutrophils # 34.6 H Seg Neutrophils # Man 35.2 H Lymphocytes # (Manual) 1.1 L Monocytes # (Manual) PT INR D-Dimer Heparin Anti-Xa Level POC ABG pH ABG pH POC ABG pCO2 POC ABG pO2 ABG pO2 ABG HCO3 ABG O2 Saturation ABG Base Excess ABG Hemoglobin Oxyhemoglobin Sodium 131 L Potassium Chloride 90.7 L Carbon Dioxide 21 L BUN 69 H Creatinine 5.7 H Glucose 170 H POC Glucose 128 H Lactic Acid Calcium 6.1 L D Ionized Calcium Phosphorus Magnesium Iron TIBC Ferritin Total Bilirubin 9.50 H Direct Bilirubin AST 308 H ALT 124 H Alkaline Phosphatase 327 H Total Creatine Kinase 43936 H CK-MB (CK-2) Troponin T C-Reactive Protein Total Protein 5.7 L Albumin 2.6 L Triglycerides LDL Cholesterol Direct HDL Cholesterol Free T4 PTH Intact Urine WBC (Auto) Urine Creatinine Salicylates Acetaminophen Crossmatch 03/21/19 03/21/19 03/21/19 05:17 05:39 08:29 WBC RBC Hgb Hct RDW Plt Count Lymph % (Auto) [place] % (Auto) Lymph # Seg Neutrophils % Seg Neuts % (Manual) Lymphocytes % (Manual) Monocytes % (Manual) Nucleated RBC % Seg Neutrophils # Seg Neutrophils # Man Lymphocytes # (Manual) Monocytes # (Manual) PT INR D-Dimer Heparin Anti-Xa Level POC ABG pH ABG pH POC ABG pCO2 POC ABG pO2 209 H ABG pO2 ABG HCO3 ABG O2 Saturation ABG Base Excess ABG Hemoglobin Oxyhemoglobin Sodium Potassium Chloride Carbon Dioxide BUN Creatinine Glucose POC Glucose 145 H Lactic Acid Calcium Ionized Calcium Phosphorus Magnesium Iron TIBC Ferritin Total Bilirubin Direct Bilirubin AST ALT Alkaline Phosphatase Total Creatine Kinase 24355 H CK-MB (CK-2) Troponin T C-Reactive Protein Total Protein Albumin Triglycerides LDL Cholesterol Direct HDL Cholesterol Free T4 PTH Intact Urine WBC (Auto) Urine Creatinine Salicylates Acetaminophen Crossmatch 03/21/19 03/21/19 03/21/19 08:29 11:43 12:00 WBC RBC Hgb Hct RDW Plt Count Lymph % (Auto) [place] % (Auto) Lymph # Seg Neutrophils % Seg Neuts % (Manual) Lymphocytes % (Manual) Monocytes % (Manual) Nucleated RBC % Seg Neutrophils # Seg Neutrophils # Man Lymphocytes # (Manual) Monocytes # (Manual) PT INR D-Dimer Heparin Anti-Xa Level POC ABG pH ABG pH POC ABG pCO2 POC ABG pO2 ABG pO2 ABG HCO3 ABG O2 Saturation ABG Base Excess ABG Hemoglobin Oxyhemoglobin Sodium Potassium Chloride Carbon Dioxide BUN Creatinine Glucose POC Glucose 123 H Lactic Acid 2.60 H* 2.20 H* Calcium Ionized Calcium Phosphorus Magnesium Iron TIBC Ferritin Total Bilirubin Direct Bilirubin AST ALT Alkaline Phosphatase Total Creatine Kinase CK-MB (CK-2) Troponin T C-Reactive Protein Total Protein Albumin Triglycerides LDL Cholesterol Direct HDL Cholesterol Free T4 PTH Intact Urine WBC (Auto) Urine Creatinine Salicylates Acetaminophen Crossmatch 03/21/19 03/21/19 03/21/19 14:11 18:28 19:32 WBC RBC Hgb Hct RDW Plt Count Lymph % (Auto) [place] % (Auto) Lymph # Seg Neutrophils % Seg Neuts % (Manual) Lymphocytes % (Manual) Monocytes % (Manual) Nucleated RBC % Seg Neutrophils # Seg Neutrophils # Man Lymphocytes # (Manual) Monocytes # (Manual) PT INR D-Dimer Heparin Anti-Xa Level POC ABG pH 7.293 L ABG pH POC ABG pCO2 POC ABG pO2 ABG pO2 ABG HCO3 ABG O2 Saturation ABG Base Excess ABG Hemoglobin Oxyhemoglobin Sodium Potassium Chloride Carbon Dioxide BUN Creatinine Glucose POC Glucose 153 H Lactic Acid 2.10 H* Calcium Ionized Calcium Phosphorus Magnesium Iron TIBC Ferritin Total Bilirubin Direct Bilirubin AST ALT Alkaline Phosphatase Total Creatine Kinase CK-MB (CK-2) Troponin T C-Reactive Protein Total Protein Albumin Triglycerides LDL Cholesterol Direct HDL Cholesterol Free T4 PTH Intact Urine WBC (Auto) Urine Creatinine Salicylates Acetaminophen Crossmatch 03/21/19 03/22/19 03/22/19 23:38 05:08 05:51 WBC RBC Hgb Hct RDW Plt Count Lymph % (Auto) [place] % (Auto) Lymph # Seg Neutrophils % Seg Neuts % (Manual) Lymphocytes % (Manual) Monocytes % (Manual) Nucleated RBC % Seg Neutrophils # Seg Neutrophils # Man Lymphocytes # (Manual) Monocytes # (Manual) PT INR D-Dimer Heparin Anti-Xa Level POC ABG pH 7.283 L ABG pH POC ABG pCO2 POC ABG pO2 53 L ABG pO2 ABG HCO3 ABG O2 Saturation ABG Base Excess ABG Hemoglobin Oxyhemoglobin Sodium Potassium Chloride Carbon Dioxide BUN Creatinine Glucose POC Glucose 149 H 131 H Lactic Acid Calcium Ionized Calcium Phosphorus Magnesium Iron TIBC Ferritin Total Bilirubin Direct Bilirubin AST ALT Alkaline Phosphatase Total Creatine Kinase CK-MB (CK-2) Troponin T C-Reactive Protein Total Protein Albumin Triglycerides LDL Cholesterol Direct HDL Cholesterol Free T4 PTH Intact Urine WBC (Auto) Urine Creatinine Salicylates Acetaminophen Crossmatch 03/22/19 03/22/19 03/22/19 08:00 08:00 18:19 WBC 36.7 H RBC Hgb 11.0 L Hct 33.5 L RDW 15.5 H Plt Count 43 L Lymph % (Auto) [place] % (Auto) Lymph # Seg Neutrophils % Seg Neuts % (Manual) 87.0 H Lymphocytes % (Manual) 7.0 L Monocytes % (Manual) Nucleated RBC % Seg Neutrophils # Seg Neutrophils # Man 31.9 H Lymphocytes # (Manual) Monocytes # (Manual) PT INR D-Dimer Heparin Anti-Xa Level POC ABG pH ABG pH POC ABG pCO2 46.4 H POC ABG pO2 108 H ABG pO2 ABG HCO3 ABG O2 Saturation ABG Base Excess ABG Hemoglobin Oxyhemoglobin Sodium 132 L Potassium 5.6 H Chloride 89.6 L Carbon Dioxide 20 L BUN 101 H Creatinine 7.4 H Glucose 124 H POC Glucose Lactic Acid Calcium 5.2 L* Ionized Calcium Phosphorus Magnesium Iron TIBC Ferritin Total Bilirubin 2.80 H Direct Bilirubin AST 119 H ALT 86 H Alkaline Phosphatase 245 H Total Creatine Kinase CK-MB (CK-2) Troponin T C-Reactive Protein Total Protein 5.6 L Albumin 2.5 L Triglycerides LDL Cholesterol Direct HDL Cholesterol Free T4 PTH Intact Urine WBC (Auto) Urine Creatinine Salicylates Acetaminophen Crossmatch 03/22/19 03/23/19 03/23/19 20:37 04:49 05:28 WBC 35.9 H RBC Hgb 10.8 L Hct 33.2 L RDW 15.5 H Plt Count 49 L Lymph % (Auto) [place] % (Auto) Lymph # Seg Neutrophils % Seg Neuts % (Manual) 81.0 H Lymphocytes % (Manual) 3.5 L Monocytes % (Manual) Nucleated RBC % Seg Neutrophils # Seg Neutrophils # Man 29.1 H Lymphocytes # (Manual) Monocytes # (Manual) 1.4 H PT INR D-Dimer Heparin Anti-Xa Level POC ABG pH 7.296 L ABG pH POC ABG pCO2 46.2 H POC ABG pO2 ABG pO2 ABG HCO3 ABG O2 Saturation ABG Base Excess ABG Hemoglobin Oxyhemoglobin Sodium 129 L Potassium 5.2 H Chloride 91.1 L Carbon Dioxide BUN 91 H Creatinine 6.6 H Glucose 190 H POC Glucose Lactic Acid Calcium 5.3 L* Ionized Calcium Phosphorus Magnesium Iron TIBC Ferritin Total Bilirubin 1.80 H Direct Bilirubin AST 80 H ALT 62 H Alkaline Phosphatase 209 H Total Creatine Kinase 9758 H CK-MB (CK-2) Troponin T C-Reactive Protein Total Protein 5.2 L Albumin 2.2 L Triglycerides LDL Cholesterol Direct HDL Cholesterol Free T4 PTH Intact Urine WBC (Auto) Urine Creatinine Salicylates Acetaminophen Crossmatch 03/23/19 03/23/19 03/23/19 05:28 05:31 11:33 WBC 29.7 H RBC 3.59 L Hgb 10.1 L Hct 31.1 L RDW 15.4 H Plt Count 47 L Lymph % (Auto) [place] % (Auto) Lymph # Seg Neutrophils % Seg Neuts % (Manual) 89.0 H Lymphocytes % (Manual) 6.0 L Monocytes % (Manual) Nucleated RBC % 1.0 H Seg Neutrophils # Seg Neutrophils # Man 26.4 H Lymphocytes # (Manual) Monocytes # (Manual) PT INR D-Dimer Heparin Anti-Xa Level POC ABG pH ABG pH POC ABG pCO2 POC ABG pO2 ABG pO2 ABG HCO3 ABG O2 Saturation ABG Base Excess ABG Hemoglobin Oxyhemoglobin Sodium Potassium Chloride Carbon Dioxide BUN Creatinine Glucose POC Glucose 122 H 113 H Lactic Acid Calcium Ionized Calcium Phosphorus Magnesium Iron TIBC Ferritin Total Bilirubin Direct Bilirubin AST ALT Alkaline Phosphatase Total Creatine Kinase CK-MB (CK-2) Troponin T C-Reactive Protein Total Protein Albumin Triglycerides LDL Cholesterol Direct HDL Cholesterol Free T4 PTH Intact Urine WBC (Auto) Urine Creatinine Salicylates Acetaminophen Crossmatch 03/23/19 03/24/19 03/24/19 17:47 00:00 04:50 WBC 35.0 H RBC Hgb 10.4 L Hct 32.4 L RDW Plt Count 60 L Lymph % (Auto) [place] % (Auto) Lymph # Seg Neutrophils % Seg Neuts % (Manual) 93.0 H Lymphocytes % (Manual) 5.0 L Monocytes % (Manual) Nucleated RBC % 7.0 H Seg Neutrophils # Seg Neutrophils # Man 32.6 H Lymphocytes # (Manual) Monocytes # (Manual) PT INR D-Dimer Heparin Anti-Xa Level POC ABG pH ABG pH POC ABG pCO2 POC ABG pO2 ABG pO2 ABG HCO3 ABG O2 Saturation ABG Base Excess ABG Hemoglobin Oxyhemoglobin Sodium Potassium Chloride Carbon Dioxide BUN Creatinine Glucose POC Glucose 111 H 108 H Lactic Acid Calcium Ionized Calcium Phosphorus Magnesium Iron TIBC Ferritin Total Bilirubin Direct Bilirubin AST ALT Alkaline Phosphatase Total Creatine Kinase CK-MB (CK-2) Troponin T C-Reactive Protein Total Protein Albumin Triglycerides LDL Cholesterol Direct HDL Cholesterol Free T4 PTH Intact Urine WBC (Auto) Urine Creatinine Salicylates Acetaminophen Crossmatch 03/24/19 03/24/19 03/24/19 04:50 05:06 12:55 WBC RBC Hgb Hct RDW Plt Count Lymph % (Auto) [place] % (Auto) Lymph # Seg Neutrophils % Seg Neuts % (Manual) Lymphocytes % (Manual) Monocytes % (Manual) Nucleated RBC % Seg Neutrophils # Seg Neutrophils # Man Lymphocytes # (Manual) Monocytes # (Manual) PT INR D-Dimer Heparin Anti-Xa Level POC ABG pH ABG pH POC ABG pCO2 POC ABG pO2 ABG pO2 ABG HCO3 ABG O2 Saturation ABG Base Excess ABG Hemoglobin Oxyhemoglobin Sodium 134 L Potassium 5.1 H Chloride 95.3 L Carbon Dioxide 21 L BUN 85 H Creatinine 6.4 H Glucose 109 H POC Glucose 112 H 110 H Lactic Acid Calcium 5.8 L* Ionized Calcium Phosphorus Magnesium Iron TIBC Ferritin Total Bilirubin Direct Bilirubin AST ALT Alkaline Phosphatase Total Creatine Kinase 5747 H CK-MB (CK-2) Troponin T C-Reactive Protein Total Protein Albumin Triglycerides LDL Cholesterol Direct HDL Cholesterol Free T4 PTH Intact Urine WBC (Auto) Urine Creatinine Salicylates Acetaminophen Crossmatch 03/24/19 03/25/19 03/25/19 23:29 05:00 05:00 WBC RBC Hgb Hct RDW Plt Count Lymph % (Auto) [place] % (Auto) Lymph # Seg Neutrophils % Seg Neuts % (Manual) Lymphocytes % (Manual) Monocytes % (Manual) Nucleated RBC % Seg Neutrophils # Seg Neutrophils # Man Lymphocytes # (Manual) Monocytes # (Manual) PT INR D-Dimer Heparin Anti-Xa Level POC ABG pH ABG pH POC ABG pCO2 POC ABG pO2 ABG pO2 ABG HCO3 ABG O2 Saturation ABG Base Excess ABG Hemoglobin Oxyhemoglobin Sodium 133 L Potassium Chloride 94.0 L Carbon Dioxide 21 L BUN 81 H Creatinine 6.4 H Glucose POC Glucose 109 H Lactic Acid Calcium 5.5 L* Ionized Calcium Phosphorus Magnesium Iron TIBC Ferritin Total Bilirubin Direct Bilirubin AST 80 H ALT Alkaline Phosphatase 202 H Total Creatine Kinase 3589 H CK-MB (CK-2) Troponin T C-Reactive Protein Total Protein 5.3 L Albumin 2.4 L Triglycerides LDL Cholesterol Direct HDL Cholesterol Free T4 PTH Intact 329.9 H Urine WBC (Auto) Urine Creatinine Salicylates Acetaminophen Crossmatch 03/25/19 03/25/19 03/26/19 05:00 06:30 04:30 WBC 23.3 H RBC 3.61 L Hgb 10.2 L Hct 31.2 L RDW Plt Count 57 L Lymph % (Auto) [place] % (Auto) Lymph # Seg Neutrophils % Seg Neuts % (Manual) 92.0 H Lymphocytes % (Manual) 6.0 L Monocytes % (Manual) Nucleated RBC % Seg Neutrophils # Seg Neutrophils # Man 21.4 H Lymphocytes # (Manual) Monocytes # (Manual) PT INR D-Dimer Heparin Anti-Xa Level POC ABG pH ABG pH 7.326 L POC ABG pCO2 POC ABG pO2 ABG pO2 109.5 H 137.4 H ABG HCO3 18.8 L 18.6 L ABG O2 Saturation ABG Base Excess -4.4 L -6.8 L ABG Hemoglobin 10.1 L 9.9 L Oxyhemoglobin Sodium Potassium Chloride Carbon Dioxide BUN Creatinine Glucose POC Glucose Lactic Acid Calcium Ionized Calcium Phosphorus Magnesium Iron TIBC Ferritin Total Bilirubin Direct Bilirubin AST ALT Alkaline Phosphatase Total Creatine Kinase CK-MB (CK-2) Troponin T C-Reactive Protein Total Protein Albumin Triglycerides LDL Cholesterol Direct HDL Cholesterol Free T4 PTH Intact Urine WBC (Auto) Urine Creatinine Salicylates Acetaminophen Crossmatch 03/26/19 03/26/19 03/26/19 23:22 Unknown Unknown WBC 19.5 H RBC 3.44 L Hgb 9.8 L Hct 29.9 L RDW Plt Count 85 L Lymph % (Auto) [place] % (Auto) Lymph # Seg Neutrophils % Seg Neuts % (Manual) 95.0 H Lymphocytes % (Manual) 3.0 L Monocytes % (Manual) Nucleated RBC % Seg Neutrophils # Seg Neutrophils # Man 18.5 H Lymphocytes # (Manual) 0.6 L Monocytes # (Manual) PT INR D-Dimer Heparin Anti-Xa Level POC ABG pH ABG pH POC ABG pCO2 POC ABG pO2 ABG pO2 ABG HCO3 ABG O2 Saturation ABG Base Excess ABG Hemoglobin Oxyhemoglobin Sodium 135 L Potassium 5.2 H D Chloride 92.2 L Carbon Dioxide 18 L BUN 109 H Creatinine 8.5 H Glucose 117 H POC Glucose 69 L Lactic Acid Calcium 4.5 L* D Ionized Calcium Phosphorus Magnesium Iron TIBC Ferritin Total Bilirubin Direct Bilirubin AST ALT Alkaline Phosphatase Total Creatine Kinase 4527 H CK-MB (CK-2) Troponin T C-Reactive Protein Total Protein Albumin Triglycerides LDL Cholesterol Direct HDL Cholesterol Free T4 PTH Intact Urine WBC (Auto) Urine Creatinine Salicylates Acetaminophen Crossmatch 03/27/19 03/27/19 03/27/19 04:30 04:30 09:00 WBC 19.2 H RBC 3.42 L Hgb 9.9 L Hct 30.0 L RDW Plt Count 84 L Lymph % (Auto) [place] % (Auto) Lymph # Seg Neutrophils % Seg Neuts % (Manual) Lymphocytes % (Manual) Monocytes % (Manual) Nucleated RBC % Seg Neutrophils # Seg Neutrophils # Man Lymphocytes # (Manual) Monocytes # (Manual) PT INR D-Dimer Heparin Anti-Xa Level POC ABG pH ABG pH POC ABG pCO2 POC ABG pO2 ABG pO2 ABG HCO3 ABG O2 Saturation ABG Base Excess ABG Hemoglobin Oxyhemoglobin Sodium 135 L Potassium Chloride 93.5 L Carbon Dioxide BUN 84 H Creatinine 7.1 H Glucose POC Glucose Lactic Acid Calcium 5.0 L* Ionized Calcium Phosphorus Magnesium Iron TIBC Ferritin Total Bilirubin Direct Bilirubin AST 78 H ALT Alkaline Phosphatase 135 H Total Creatine Kinase 4677 H CK-MB (CK-2) Troponin T C-Reactive Protein Total Protein 4.8 L Albumin 2.3 L Triglycerides 409 H LDL Cholesterol Direct HDL Cholesterol Free T4 PTH Intact Urine WBC (Auto) Urine Creatinine Salicylates Acetaminophen Crossmatch 03/27/19 03/27/19 03/27/19 12:37 14:15 14:15 WBC RBC Hgb 9.7 L Hct 29.5 L RDW Plt Count 87 L Lymph % (Auto) [place] % (Auto) Lymph # Seg Neutrophils % Seg Neuts % (Manual) Lymphocytes % (Manual) Monocytes % (Manual) Nucleated RBC % Seg Neutrophils # Seg Neutrophils # Man Lymphocytes # (Manual) Monocytes # (Manual) PT 15.9 H INR 1.30 H D-Dimer Heparin Anti-Xa Level POC ABG pH ABG pH POC ABG pCO2 POC ABG pO2 ABG pO2 ABG HCO3 ABG O2 Saturation ABG Base Excess ABG Hemoglobin Oxyhemoglobin Sodium Potassium Chloride Carbon Dioxide BUN Creatinine Glucose POC Glucose 129 H Lactic Acid Calcium Ionized Calcium Phosphorus Magnesium Iron TIBC Ferritin Total Bilirubin Direct Bilirubin AST ALT Alkaline Phosphatase Total Creatine Kinase CK-MB (CK-2) Troponin T C-Reactive Protein Total Protein Albumin Triglycerides LDL Cholesterol Direct HDL Cholesterol Free T4 PTH Intact Urine WBC (Auto) Urine Creatinine Salicylates Acetaminophen Crossmatch 03/27/19 03/27/19 03/27/19 18:00 19:22 19:23 WBC RBC Hgb Hct RDW Plt Count Lymph % (Auto) [place] % (Auto) Lymph # Seg Neutrophils % Seg Neuts % (Manual) Lymphocytes % (Manual) Monocytes % (Manual) Nucleated RBC % Seg Neutrophils # Seg Neutrophils # Man Lymphocytes # (Manual) Monocytes # (Manual) PT INR D-Dimer Heparin Anti-Xa Level < 0.10 L POC ABG pH ABG pH POC ABG pCO2 POC ABG pO2 ABG pO2 ABG HCO3 ABG O2 Saturation ABG Base Excess ABG Hemoglobin Oxyhemoglobin Sodium Potassium Chloride Carbon Dioxide BUN Creatinine Glucose POC Glucose 121 H Lactic Acid Calcium Ionized Calcium Phosphorus Magnesium Iron TIBC Ferritin Total Bilirubin Direct Bilirubin AST ALT Alkaline Phosphatase Total Creatine Kinase 4517 H CK-MB (CK-2) Troponin T C-Reactive Protein Total Protein Albumin Triglycerides LDL Cholesterol Direct HDL Cholesterol Free T4 PTH Intact Urine WBC (Auto) Urine Creatinine Salicylates Acetaminophen Crossmatch 03/27/19 03/27/19 03/28/19 22:10 23:52 03:49 WBC RBC Hgb Hct RDW Plt Count Lymph % (Auto) [place] % (Auto) Lymph # Seg Neutrophils % Seg Neuts % (Manual) Lymphocytes % (Manual) Monocytes % (Manual) Nucleated RBC % Seg Neutrophils # Seg Neutrophils # Man Lymphocytes # (Manual) Monocytes # (Manual) PT INR D-Dimer Heparin Anti-Xa Level POC ABG pH 7.338 L ABG pH POC ABG pCO2 33.1 L POC ABG pO2 ABG pO2 ABG HCO3 ABG O2 Saturation ABG Base Excess ABG Hemoglobin Oxyhemoglobin Sodium Potassium Chloride Carbon Dioxide BUN Creatinine Glucose POC Glucose 113 H 117 H Lactic Acid Calcium Ionized Calcium Phosphorus Magnesium Iron TIBC Ferritin Total Bilirubin Direct Bilirubin AST ALT Alkaline Phosphatase Total Creatine Kinase CK-MB (CK-2) Troponin T C-Reactive Protein Total Protein Albumin Triglycerides LDL Cholesterol Direct HDL Cholesterol Free T4 PTH Intact Urine WBC (Auto) Urine Creatinine Salicylates Acetaminophen Crossmatch 03/28/19 03/28/19 03/28/19 05:13 05:13 06:18 WBC RBC Hgb Hct RDW Plt Count Lymph % (Auto) [place] % (Auto) Lymph # Seg Neutrophils % Seg Neuts % (Manual) Lymphocytes % (Manual) Monocytes % (Manual) Nucleated RBC % Seg Neutrophils # Seg Neutrophils # Man Lymphocytes # (Manual) Monocytes # (Manual) PT INR D-Dimer Heparin Anti-Xa Level 0.23 L POC ABG pH ABG pH POC ABG pCO2 POC ABG pO2 ABG pO2 ABG HCO3 ABG O2 Saturation ABG Base Excess ABG Hemoglobin Oxyhemoglobin Sodium 135 L Potassium 5.5 H D Chloride 95.1 L Carbon Dioxide 16 L D BUN 129 H Creatinine 9.3 H Glucose 158 H POC Glucose 202 H Lactic Acid Calcium 4.0 L* D Ionized Calcium Phosphorus 12.40 H Magnesium Iron TIBC Ferritin Total Bilirubin Direct Bilirubin AST ALT Alkaline Phosphatase Total Creatine Kinase 4266 H CK-MB (CK-2) Troponin T C-Reactive Protein Total Protein Albumin Triglycerides LDL Cholesterol Direct HDL Cholesterol Free T4 PTH Intact Urine WBC (Auto) Urine Creatinine Salicylates Acetaminophen Crossmatch 03/28/19 03/28/19 03/28/19 08:25 10:00 12:00 WBC RBC Hgb 4.9 L* D Hct 15.4 L* D RDW Plt Count Lymph % (Auto) [place] % (Auto) Lymph # Seg Neutrophils % Seg Neuts % (Manual) Lymphocytes % (Manual) Monocytes % (Manual) Nucleated RBC % Seg Neutrophils # Seg Neutrophils # Man Lymphocytes # (Manual) Monocytes # (Manual) PT 17.9 H INR 1.52 H D-Dimer 4845.98 H Heparin Anti-Xa Level POC ABG pH ABG pH POC ABG pCO2 POC ABG pO2 ABG pO2 ABG HCO3 ABG O2 Saturation ABG Base Excess ABG Hemoglobin Oxyhemoglobin Sodium Potassium Chloride Carbon Dioxide BUN Creatinine Glucose POC Glucose Lactic Acid Calcium Ionized Calcium Phosphorus Magnesium Iron TIBC Ferritin Total Bilirubin Direct Bilirubin AST ALT Alkaline Phosphatase Total Creatine Kinase CK-MB (CK-2) Troponin T C-Reactive Protein Total Protein Albumin Triglycerides LDL Cholesterol Direct HDL Cholesterol Free T4 PTH Intact Urine WBC (Auto) Urine Creatinine Salicylates Acetaminophen Crossmatch See Detail 03/28/19 03/28/19 03/28/19 12:28 14:10 17:43 WBC RBC Hgb 5.9 L* Hct 18.3 L* RDW Plt Count Lymph % (Auto) [place] % (Auto) Lymph # Seg Neutrophils % Seg Neuts % (Manual) Lymphocytes % (Manual) Monocytes % (Manual) Nucleated RBC % Seg Neutrophils # Seg Neutrophils # Man Lymphocytes # (Manual) Monocytes # (Manual) PT INR D-Dimer Heparin Anti-Xa Level POC ABG pH ABG pH POC ABG pCO2 POC ABG pO2 ABG pO2 ABG HCO3 ABG O2 Saturation ABG Base Excess ABG Hemoglobin Oxyhemoglobin Sodium Potassium Chloride Carbon Dioxide BUN Creatinine Glucose POC Glucose 153 H 159 H Lactic Acid Calcium Ionized Calcium Phosphorus Magnesium Iron TIBC Ferritin Total Bilirubin Direct Bilirubin AST ALT Alkaline Phosphatase Total Creatine Kinase CK-MB (CK-2) Troponin T C-Reactive Protein Total Protein Albumin Triglycerides LDL Cholesterol Direct HDL Cholesterol Free T4 PTH Intact Urine WBC (Auto) Urine Creatinine Salicylates Acetaminophen Crossmatch 03/28/19 03/28/19 03/28/19 18:10 Unknown 23:59 WBC 24.8 H RBC 3.42 L Hgb 10.2 L D Hct 31.1 L D RDW 15.4 H Plt Count 54 L Lymph % (Auto) [place] % (Auto) Lymph # Seg Neutrophils % Seg Neuts % (Manual) 91.0 H Lymphocytes % (Manual) 8.0 L Monocytes % (Manual) Nucleated RBC % Seg Neutrophils # Seg Neutrophils # Man 22.6 H Lymphocytes # (Manual) Monocytes # (Manual) PT INR D-Dimer Heparin Anti-Xa Level POC ABG pH ABG pH POC ABG pCO2 POC ABG pO2 ABG pO2 ABG HCO3 ABG O2 Saturation ABG Base Excess ABG Hemoglobin Oxyhemoglobin Sodium Potassium 5.7 H Chloride Carbon Dioxide BUN Creatinine Glucose POC Glucose 107 H Lactic Acid Calcium Ionized Calcium Phosphorus Magnesium Iron TIBC Ferritin Total Bilirubin Direct Bilirubin AST ALT Alkaline Phosphatase Total Creatine Kinase CK-MB (CK-2) Troponin T C-Reactive Protein Total Protein Albumin Triglycerides LDL Cholesterol Direct HDL Cholesterol Free T4 PTH Intact Urine WBC (Auto) Urine Creatinine Salicylates Acetaminophen Crossmatch 03/29/19 03/29/19 03/29/19 04:29 05:46 06:22 WBC RBC Hgb 8.6 L Hct 25.7 L RDW Plt Count 93 L Lymph % (Auto) [place] % (Auto) Lymph # Seg Neutrophils % Seg Neuts % (Manual) Lymphocytes % (Manual) Monocytes % (Manual) Nucleated RBC % Seg Neutrophils # Seg Neutrophils # Man Lymphocytes # (Manual) Monocytes # (Manual) PT INR D-Dimer Heparin Anti-Xa Level POC ABG pH ABG pH POC ABG pCO2 32.2 L POC ABG pO2 ABG pO2 ABG HCO3 ABG O2 Saturation ABG Base Excess ABG Hemoglobin Oxyhemoglobin Sodium Potassium Chloride Carbon Dioxide BUN Creatinine Glucose POC Glucose 113 H Lactic Acid Calcium Ionized Calcium Phosphorus Magnesium Iron TIBC Ferritin Total Bilirubin Direct Bilirubin AST ALT Alkaline Phosphatase Total Creatine Kinase CK-MB (CK-2) Troponin T C-Reactive Protein Total Protein Albumin Triglycerides LDL Cholesterol Direct HDL Cholesterol Free T4 PTH Intact Urine WBC (Auto) Urine Creatinine Salicylates Acetaminophen Crossmatch 03/29/19 03/29/19 03/29/19 06:22 06:22 06:22 WBC 23.2 H RBC 2.91 L Hgb 8.6 L Hct 25.8 L RDW Plt Count 91 L Lymph % (Auto) [place] % (Auto) Lymph # Seg Neutrophils % Seg Neuts % (Manual) Lymphocytes % (Manual) Monocytes % (Manual) Nucleated RBC % Seg Neutrophils # Seg Neutrophils # Man Lymphocytes # (Manual) Monocytes # (Manual) PT INR D-Dimer Heparin Anti-Xa Level POC ABG pH ABG pH POC ABG pCO2 POC ABG pO2 ABG pO2 ABG HCO3 ABG O2 Saturation ABG Base Excess ABG Hemoglobin Oxyhemoglobin Sodium 133 L Potassium Chloride 93.8 L Carbon Dioxide 18 L BUN 109 H Creatinine 7.4 H Glucose 124 H POC Glucose Lactic Acid Calcium 4.6 L* Ionized Calcium Phosphorus Magnesium Iron TIBC Ferritin Total Bilirubin Direct Bilirubin AST ALT Alkaline Phosphatase Total Creatine Kinase 3401 H CK-MB (CK-2) Troponin T C-Reactive Protein Total Protein Albumin Triglycerides 309 H LDL Cholesterol Direct HDL Cholesterol Free T4 PTH Intact Urine WBC (Auto) Urine Creatinine Salicylates Acetaminophen Crossmatch 03/29/19 03/29/19 03/29/19 11:48 11:48 18:24 WBC RBC Hgb 7.8 L Hct 23.2 L RDW Plt Count Lymph % (Auto) [place] % (Auto) Lymph # Seg Neutrophils % Seg Neuts % (Manual) Lymphocytes % (Manual) Monocytes % (Manual) Nucleated RBC % Seg Neutrophils # Seg Neutrophils # Man Lymphocytes # (Manual) Monocytes # (Manual) PT 15.3 H INR 1.24 H D-Dimer Heparin Anti-Xa Level POC ABG pH ABG pH POC ABG pCO2 POC ABG pO2 ABG pO2 ABG HCO3 ABG O2 Saturation ABG Base Excess ABG Hemoglobin Oxyhemoglobin Sodium Potassium Chloride Carbon Dioxide BUN Creatinine Glucose POC Glucose 122 H Lactic Acid Calcium Ionized Calcium Phosphorus Magnesium Iron TIBC Ferritin Total Bilirubin Direct Bilirubin AST ALT Alkaline Phosphatase Total Creatine Kinase CK-MB (CK-2) Troponin T C-Reactive Protein Total Protein Albumin Triglycerides LDL Cholesterol Direct HDL Cholesterol Free T4 PTH Intact Urine WBC (Auto) Urine Creatinine Salicylates Acetaminophen Crossmatch 03/30/19 03/30/19 03/30/19 00:40 04:31 05:04 WBC RBC Hgb 7.6 L Hct 23.0 L RDW Plt Count Lymph % (Auto) [place] % (Auto) Lymph # Seg Neutrophils % Seg Neuts % (Manual) Lymphocytes % (Manual) Monocytes % (Manual) Nucleated RBC % Seg Neutrophils # Seg Neutrophils # Man Lymphocytes # (Manual) Monocytes # (Manual) PT INR D-Dimer Heparin Anti-Xa Level POC ABG pH 7.346 L ABG pH POC ABG pCO2 POC ABG pO2 62 L ABG pO2 ABG HCO3 ABG O2 Saturation ABG Base Excess ABG Hemoglobin Oxyhemoglobin Sodium Potassium Chloride Carbon Dioxide BUN 79 H Creatinine 6.4 H Glucose POC Glucose Lactic Acid Calcium 6.1 L D Ionized Calcium Phosphorus Magnesium Iron TIBC Ferritin Total Bilirubin Direct Bilirubin AST ALT Alkaline Phosphatase Total Creatine Kinase CK-MB (CK-2) Troponin T C-Reactive Protein Total Protein Albumin Triglycerides LDL Cholesterol Direct HDL Cholesterol Free T4 PTH Intact Urine WBC (Auto) Urine Creatinine Salicylates Acetaminophen Crossmatch 03/30/19 03/30/19 03/30/19 08:45 12:09 22:43 WBC 14.3 H RBC 2.33 L Hgb 7.0 L 7.4 L Hct 21.0 L 22.3 L RDW 15.6 H Plt Count 135 L Lymph % (Auto) [place] % (Auto) Lymph # Seg Neutrophils % Seg Neuts % (Manual) Lymphocytes % (Manual) Monocytes % (Manual) Nucleated RBC % Seg Neutrophils # Seg Neutrophils # Man Lymphocytes # (Manual) Monocytes # (Manual) PT INR D-Dimer Heparin Anti-Xa Level POC ABG pH ABG pH POC ABG pCO2 POC ABG pO2 ABG pO2 ABG HCO3 ABG O2 Saturation ABG Base Excess ABG Hemoglobin Oxyhemoglobin Sodium Potassium Chloride Carbon Dioxide BUN Creatinine Glucose POC Glucose Lactic Acid Calcium Ionized Calcium 3.7 L Phosphorus Magnesium Iron TIBC Ferritin Total Bilirubin Direct Bilirubin AST ALT Alkaline Phosphatase Total Creatine Kinase CK-MB (CK-2) Troponin T C-Reactive Protein Total Protein Albumin Triglycerides LDL Cholesterol Direct HDL Cholesterol Free T4 PTH Intact Urine WBC (Auto) Urine Creatinine Salicylates Acetaminophen Crossmatch 03/30/19 03/30/19 03/31/19 23:38 Unknown 04:44 WBC 11.5 H RBC 2.40 L Hgb 7.3 L Hct 21.9 L RDW 15.4 H Plt Count Lymph % (Auto) 10.6 L [place] % (Auto) Lymph # Seg Neutrophils % 81.7 H Seg Neuts % (Manual) Lymphocytes % (Manual) Monocytes % (Manual) Nucleated RBC % Seg Neutrophils # 9.4 H Seg Neutrophils # Man Lymphocytes # (Manual) Monocytes # (Manual) PT INR D-Dimer Heparin Anti-Xa Level POC ABG pH ABG pH POC ABG pCO2 POC ABG pO2 ABG pO2 ABG HCO3 ABG O2 Saturation ABG Base Excess ABG Hemoglobin Oxyhemoglobin Sodium Potassium Chloride Carbon Dioxide BUN Creatinine Glucose POC Glucose 155 H Lactic Acid Calcium Ionized Calcium Phosphorus Magnesium Iron TIBC Ferritin Total Bilirubin Direct Bilirubin 0.4 H AST 63 H ALT Alkaline Phosphatase Total Creatine Kinase CK-MB (CK-2) Troponin T C-Reactive Protein Total Protein 4.9 L Albumin 2.2 L Triglycerides LDL Cholesterol Direct HDL Cholesterol Free T4 PTH Intact Urine WBC (Auto) Urine Creatinine Salicylates Acetaminophen Crossmatch 03/31/19 03/31/19 03/31/19 04:44 05:44 08:20 WBC RBC Hgb Hct RDW Plt Count Lymph % (Auto) [place] % (Auto) Lymph # Seg Neutrophils % Seg Neuts % (Manual) Lymphocytes % (Manual) Monocytes % (Manual) Nucleated RBC % Seg Neutrophils # Seg Neutrophils # Man Lymphocytes # (Manual) Monocytes # (Manual) PT INR D-Dimer Heparin Anti-Xa Level POC ABG pH ABG pH POC ABG pCO2 53.5 H POC ABG pO2 62 L ABG pO2 ABG HCO3 ABG O2 Saturation ABG Base Excess ABG Hemoglobin Oxyhemoglobin Sodium 135 L Potassium Chloride 96.7 L Carbon Dioxide 19 L BUN 94 H Creatinine 7.8 H Glucose POC Glucose Lactic Acid Calcium 5.3 L* Ionized Calcium Phosphorus 8.20 H Magnesium Iron TIBC Ferritin Total Bilirubin Direct Bilirubin 0.4 H AST 60 H ALT Alkaline Phosphatase Total Creatine Kinase CK-MB (CK-2) Troponin T C-Reactive Protein Total Protein 4.8 L Albumin 2.1 L Triglycerides LDL Cholesterol Direct HDL Cholesterol Free T4 PTH Intact Urine WBC (Auto) Urine Creatinine Salicylates Acetaminophen Crossmatch 03/31/19 04/01/19 04/01/19 22:14 04:27 04:27 WBC RBC 2.60 L Hgb 8.0 L Hct 24.1 L RDW 15.7 H Plt Count Lymph % (Auto) 7.9 L [place] % (Auto) Lymph # 0.7 L Seg Neutrophils % 83.6 H Seg Neuts % (Manual) Lymphocytes % (Manual) Monocytes % (Manual) Nucleated RBC % Seg Neutrophils # Seg Neutrophils # Man Lymphocytes # (Manual) Monocytes # (Manual) PT INR D-Dimer Heparin Anti-Xa Level POC ABG pH 7.286 L ABG pH POC ABG pCO2 54.7 H POC ABG pO2 179 H ABG pO2 ABG HCO3 ABG O2 Saturation ABG Base Excess ABG Hemoglobin Oxyhemoglobin Sodium Potassium Chloride Carbon Dioxide BUN 68 H Creatinine 6.6 H Glucose POC Glucose Lactic Acid Calcium 6.5 L D Ionized Calcium Phosphorus 7.30 H Magnesium Iron TIBC Ferritin Total Bilirubin Direct Bilirubin AST ALT Alkaline Phosphatase Total Creatine Kinase 1652 H CK-MB (CK-2) Troponin T C-Reactive Protein Total Protein Albumin Triglycerides LDL Cholesterol Direct HDL Cholesterol Free T4 PTH Intact Urine WBC (Auto) Urine Creatinine Salicylates Acetaminophen Crossmatch 04/01/19 04/01/19 04/01/19 05:14 05:37 18:37 WBC RBC Hgb Hct RDW Plt Count Lymph % (Auto) [place] % (Auto) Lymph # Seg Neutrophils % Seg Neuts % (Manual) Lymphocytes % (Manual) Monocytes % (Manual) Nucleated RBC % Seg Neutrophils # Seg Neutrophils # Man Lymphocytes # (Manual) Monocytes # (Manual) PT INR D-Dimer Heparin Anti-Xa Level POC ABG pH 7.283 L ABG pH POC ABG pCO2 53.4 H POC ABG pO2 241 H ABG pO2 ABG HCO3 ABG O2 Saturation ABG Base Excess ABG Hemoglobin Oxyhemoglobin Sodium Potassium Chloride Carbon Dioxide BUN Creatinine Glucose POC Glucose 111 H 119 H Lactic Acid Calcium Ionized Calcium Phosphorus Magnesium Iron TIBC Ferritin Total Bilirubin Direct Bilirubin AST ALT Alkaline Phosphatase Total Creatine Kinase CK-MB (CK-2) Troponin T C-Reactive Protein Total Protein Albumin Triglycerides LDL Cholesterol Direct HDL Cholesterol Free T4 PTH Intact Urine WBC (Auto) Urine Creatinine Salicylates Acetaminophen Crossmatch 04/01/19 04/02/19 04/02/19 21:28 04:40 05:03 WBC RBC 2.36 L Hgb 7.2 L Hct 21.9 L RDW 16.0 H Plt Count Lymph % (Auto) 10.8 L [place] % (Auto) Lymph # 0.8 L Seg Neutrophils % 80.3 H Seg Neuts % (Manual) Lymphocytes % (Manual) Monocytes % (Manual) Nucleated RBC % Seg Neutrophils # Seg Neutrophils # Man Lymphocytes # (Manual) Monocytes # (Manual) PT INR D-Dimer Heparin Anti-Xa Level POC ABG pH 7.299 L 7.300 L ABG pH POC ABG pCO2 48.2 H 45.2 H POC ABG pO2 133 H 107 H ABG pO2 ABG HCO3 ABG O2 Saturation ABG Base Excess ABG Hemoglobin Oxyhemoglobin Sodium Potassium Chloride Carbon Dioxide BUN Creatinine Glucose POC Glucose Lactic Acid Calcium Ionized Calcium Phosphorus Magnesium Iron TIBC Ferritin Total Bilirubin Direct Bilirubin AST ALT Alkaline Phosphatase Total Creatine Kinase CK-MB (CK-2) Troponin T C-Reactive Protein Total Protein Albumin Triglycerides LDL Cholesterol Direct HDL Cholesterol Free T4 PTH Intact Urine WBC (Auto) Urine Creatinine Salicylates Acetaminophen Crossmatch 04/02/19 04/02/19 04/02/19 05:03 05:03 12:15 WBC RBC Hgb 7.4 L Hct 22.6 L RDW Plt Count Lymph % (Auto) [place] % (Auto) Lymph # Seg Neutrophils % Seg Neuts % (Manual) Lymphocytes % (Manual) Monocytes % (Manual) Nucleated RBC % Seg Neutrophils # Seg Neutrophils # Man Lymphocytes # (Manual) Monocytes # (Manual) PT INR D-Dimer Heparin Anti-Xa Level POC ABG pH ABG pH POC ABG pCO2 POC ABG pO2 ABG pO2 ABG HCO3 ABG O2 Saturation ABG Base Excess ABG Hemoglobin Oxyhemoglobin Sodium 136 L Potassium Chloride 97.8 L Carbon Dioxide 18 L BUN 82 H Creatinine 8.2 H Glucose POC Glucose Lactic Acid Calcium 6.7 L Ionized Calcium Phosphorus 7.50 H Magnesium Iron 26 L TIBC 138 L Ferritin 607.0 H Total Bilirubin Direct Bilirubin AST ALT Alkaline Phosphatase Total Creatine Kinase CK-MB (CK-2) Troponin T C-Reactive Protein Total Protein Albumin Triglycerides LDL Cholesterol Direct HDL Cholesterol Free T4 PTH Intact Urine WBC (Auto) Urine Creatinine Salicylates Acetaminophen Crossmatch 04/02/19 04/02/19 04/03/19 16:34 17:14 04:18 WBC RBC Hgb Hct RDW Plt Count Lymph % (Auto) [place] % (Auto) Lymph # Seg Neutrophils % Seg Neuts % (Manual) Lymphocytes % (Manual) Monocytes % (Manual) Nucleated RBC % Seg Neutrophils # Seg Neutrophils # Man Lymphocytes # (Manual) Monocytes # (Manual) PT INR D-Dimer Heparin Anti-Xa Level POC ABG pH ABG pH POC ABG pCO2 POC ABG pO2 146 H ABG pO2 ABG HCO3 ABG O2 Saturation ABG Base Excess ABG Hemoglobin Oxyhemoglobin Sodium Potassium Chloride Carbon Dioxide BUN Creatinine Glucose POC Glucose 108 H Lactic Acid Calcium Ionized Calcium Phosphorus Magnesium Iron TIBC Ferritin Total Bilirubin Direct Bilirubin AST ALT Alkaline Phosphatase Total Creatine Kinase CK-MB (CK-2) Troponin T C-Reactive Protein Total Protein Albumin Triglycerides LDL Cholesterol Direct HDL Cholesterol Free T4 PTH Intact Urine WBC (Auto) Urine Creatinine Salicylates Acetaminophen Crossmatch See Detail 04/03/19 04/03/19 04/03/19 04:25 08:30 18:24 WBC RBC 2.40 L Hgb 7.3 L Hct 21.9 L RDW Plt Count Lymph % (Auto) [place] % (Auto) 7.7 H Lymph # 0.9 L Seg Neutrophils % 74.6 H Seg Neuts % (Manual) Lymphocytes % (Manual) Monocytes % (Manual) Nucleated RBC % Seg Neutrophils # Seg Neutrophils # Man Lymphocytes # (Manual) Monocytes # (Manual) PT INR D-Dimer Heparin Anti-Xa Level POC ABG pH ABG pH POC ABG pCO2 POC ABG pO2 ABG pO2 ABG HCO3 ABG O2 Saturation ABG Base Excess ABG Hemoglobin Oxyhemoglobin Sodium 136 L Potassium Chloride 97.0 L Carbon Dioxide BUN 58 H Creatinine 7.3 H Glucose POC Glucose 106 H Lactic Acid Calcium 7.5 L Ionized Calcium Phosphorus 5.80 H D Magnesium Iron TIBC Ferritin Total Bilirubin Direct Bilirubin AST ALT Alkaline Phosphatase Total Creatine Kinase CK-MB (CK-2) Troponin T C-Reactive Protein Total Protein Albumin Triglycerides LDL Cholesterol Direct HDL Cholesterol Free T4 PTH Intact Urine WBC (Auto) Urine Creatinine Salicylates Acetaminophen Crossmatch 04/03/19 04/04/19 04/04/19 23:43 04:47 04:47 WBC RBC 2.72 L Hgb 8.3 L Hct 24.7 L RDW 15.6 H Plt Count Lymph % (Auto) [place] % (Auto) 10.1 H Lymph # 0.8 L Seg Neutrophils % 71.4 H Seg Neuts % (Manual) Lymphocytes % (Manual) Monocytes % (Manual) Nucleated RBC % Seg Neutrophils # Seg Neutrophils # Man Lymphocytes # (Manual) Monocytes # (Manual) PT INR D-Dimer Heparin Anti-Xa Level POC ABG pH ABG pH POC ABG pCO2 POC ABG pO2 ABG pO2 123.8 H ABG HCO3 ABG O2 Saturation ABG Base Excess -3.0 L ABG Hemoglobin 7.9 L Oxyhemoglobin Sodium 134 L Potassium Chloride 97.9 L Carbon Dioxide BUN 64 H Creatinine 8.1 H Glucose POC Glucose Lactic Acid Calcium 7.2 L Ionized Calcium Phosphorus Magnesium Iron TIBC Ferritin Total Bilirubin Direct Bilirubin AST ALT Alkaline Phosphatase Total Creatine Kinase CK-MB (CK-2) Troponin T C-Reactive Protein Total Protein Albumin Triglycerides LDL Cholesterol Direct HDL Cholesterol Free T4 PTH Intact Urine WBC (Auto) Urine Creatinine Salicylates Acetaminophen Crossmatch 04/04/19 04/04/19 04/04/19 06:07 13:40 18:18 WBC RBC Hgb Hct RDW Plt Count Lymph % (Auto) [place] % (Auto) Lymph # Seg Neutrophils % Seg Neuts % (Manual) Lymphocytes % (Manual) Monocytes % (Manual) Nucleated RBC % Seg Neutrophils # Seg Neutrophils # Man Lymphocytes # (Manual) Monocytes # (Manual) PT INR D-Dimer Heparin Anti-Xa Level POC ABG pH ABG pH POC ABG pCO2 POC ABG pO2 ABG pO2 95.9 H ABG HCO3 ABG O2 Saturation ABG Base Excess -3.0 L ABG Hemoglobin 8.5 L Oxyhemoglobin Sodium Potassium Chloride Carbon Dioxide BUN Creatinine Glucose POC Glucose 107 H 107 H Lactic Acid Calcium Ionized Calcium Phosphorus Magnesium Iron TIBC Ferritin Total Bilirubin Direct Bilirubin AST ALT Alkaline Phosphatase Total Creatine Kinase CK-MB (CK-2) Troponin T C-Reactive Protein Total Protein Albumin Triglycerides LDL Cholesterol Direct HDL Cholesterol Free T4 PTH Intact Urine WBC (Auto) Urine Creatinine Salicylates Acetaminophen Crossmatch 04/04/19 04/05/19 04/05/19 21:22 04:09 04:09 WBC RBC 2.76 L Hgb 8.4 L Hct 25.4 L RDW 15.8 H Plt Count 133 L Lymph % (Auto) [place] % (Auto) 9.6 H Lymph # 0.7 L Seg Neutrophils % 72.6 H Seg Neuts % (Manual) Lymphocytes % (Manual) Monocytes % (Manual) Nucleated RBC % Seg Neutrophils # Seg Neutrophils # Man Lymphocytes # (Manual) Monocytes # (Manual) PT INR D-Dimer Heparin Anti-Xa Level POC ABG pH ABG pH POC ABG pCO2 47.2 H POC ABG pO2 137 H ABG pO2 ABG HCO3 ABG O2 Saturation ABG Base Excess ABG Hemoglobin Oxyhemoglobin Sodium 136 L Potassium Chloride Carbon Dioxide BUN 46 H Creatinine 6.7 H Glucose POC Glucose Lactic Acid Calcium 7.7 L Ionized Calcium Phosphorus Magnesium Iron TIBC Ferritin Total Bilirubin Direct Bilirubin AST ALT Alkaline Phosphatase Total Creatine Kinase CK-MB (CK-2) Troponin T C-Reactive Protein Total Protein Albumin Triglycerides LDL Cholesterol Direct HDL Cholesterol Free T4 PTH Intact Urine WBC (Auto) Urine Creatinine Salicylates Acetaminophen Crossmatch 04/05/19 04/05/19 05:28 06:14 WBC RBC Hgb Hct RDW Plt Count Lymph % (Auto) [place] % (Auto) Lymph # Seg Neutrophils % Seg Neuts % (Manual) Lymphocytes % (Manual) Monocytes % (Manual) Nucleated RBC % Seg Neutrophils # Seg Neutrophils # Man Lymphocytes # (Manual) Monocytes # (Manual) PT INR D-Dimer Heparin Anti-Xa Level POC ABG pH ABG pH POC ABG pCO2 POC ABG pO2 67 L ABG pO2 ABG HCO3 ABG O2 Saturation ABG Base Excess ABG Hemoglobin Oxyhemoglobin Sodium Potassium Chloride Carbon Dioxide BUN Creatinine Glucose POC Glucose 108 H Lactic Acid Calcium Ionized Calcium Phosphorus Magnesium Iron TIBC Ferritin Total Bilirubin Direct Bilirubin AST ALT Alkaline Phosphatase Total Creatine Kinase CK-MB (CK-2) Troponin T C-Reactive Protein Total Protein Albumin Triglycerides LDL Cholesterol Direct HDL Cholesterol Free T4 PTH Intact Urine WBC (Auto) Urine Creatinine Salicylates Acetaminophen Crossmatch Chest x-ray: image reviewed Allied health notes reviewed: RT
--- NOTE | 2019-04-05 07:17 | Hem/Onc Progress Note ---
Assessment and Plan 1. h/o Anemia. The patient has history of bleeding. 2. Internal jugular partial thrombosis. The patient was started on heparin. This has been held due to bleeding 3. Gastrointestinal bleed. 4. h/o Elevated creatinine kinase. 5. h/o Low calcium. 6. h/o Thrombocytopenia. 7. h/o Renal failure. 8. Intubation. 9. Transfusion support. 10. Leukocytosis. At this time, supportive care may help the patient. The patient's platelet had been low at admission. Urine toxicology was negative. awake - on vent dvt - off anticoagulation - due to bleeding platelet better s/p iv iron trial - Patient Problems (1) DVT (deep venous thrombosis) Current Visit: Yes Status: Acute Subjective Date of service: 04/05/19 Principal diagnosis: anemia - IJ DVT Interval history: still on vent Objective - Exam Narrative Exam: Pain - intubated General appearance - awake - on vent Performance status complete dependence Eyes - no icterus ENT - intubated LNs cervical not palpable Neck - no LN Respiratory Normal Breath sounds - CTA anteriorly CVS S1 S2 + Extremities edema + General GI Soft Rectal deferred male - deferred Skin warm Musculoskeletal awake - on vent Neurologically awake - Constitutional Vitals: Last Vital Signs Temp 101.0 F H 04/05/19 04:00 Pulse 132 H 04/05/19 06:46 Resp 15 04/05/19 06:46 BP 141/60 04/05/19 06:46 Pulse Ox 95 04/05/19 06:46 - Labs Lab Results: Laboratory Results - last 24 hr 04/02/19 04/02/19 04/04/19 05:03 05:03 12:08 WBC RBC Hgb Hct MCV MCH MCHC RDW Plt Count Lymph % (Auto) [place] % (Auto) Eos % (Auto) Baso % (Auto) Lymph # [place] # Eos # Baso # Seg Neutrophils % Seg Neutrophils # POC ABG pH ABG pH POC ABG pCO2 ABG pCO2 POC ABG pO2 ABG pO2 POC ABG HCO3 ABG HCO3 POC ABG Total CO2 POC ABG O2 Sat ABG O2 Saturation ABG O2 Content POC ABG Base Excess ABG Base Excess ABG Hemoglobin ABG Carboxyhemoglobin ABG Methemoglobin Oxyhemoglobin FiO2 Sodium Potassium Chloride Carbon Dioxide Anion Gap BUN Creatinine Estimated GFR BUN/Creatinine Ratio Glucose POC Glucose 93 Calcium Total Creatine Kinase Vitamin B12 903.0 Folate 8.05 04/04/19 04/04/19 04/04/19 13:40 18:18 21:22 WBC RBC Hgb Hct MCV MCH MCHC RDW Plt Count Lymph % (Auto) [place] % (Auto) Eos % (Auto) Baso % (Auto) Lymph # [place] # Eos # Baso # Seg Neutrophils % Seg Neutrophils # POC ABG pH 7.363 ABG pH 7.397 POC ABG pCO2 47.2 H ABG pCO2 35.6 POC ABG pO2 137 H ABG pO2 95.9 H POC ABG HCO3 26.8 ABG HCO3 21.4 POC ABG Total CO2 28 POC ABG O2 Sat 99 ABG O2 Saturation 97.5 ABG O2 Content 11.5 POC ABG Base Excess 1 ABG Base Excess -3.0 L ABG Hemoglobin 8.5 L ABG Carboxyhemoglobin 1.6 ABG Methemoglobin 0.6 Oxyhemoglobin 95.3 FiO2 35 35 Sodium Potassium Chloride Carbon Dioxide Anion Gap BUN Creatinine Estimated GFR BUN/Creatinine Ratio Glucose POC Glucose 107 H Calcium Total Creatine Kinase Vitamin B12 Folate 04/05/19 04/05/19 04/05/19 00:09 04:09 04:09 WBC 5.0 RBC 2.76 L Hgb 8.4 L Hct 25.4 L MCV 92 MCH 31 MCHC 33 RDW 15.8 H Plt Count 133 L Lymph % (Auto) 14.8 [place] % (Auto) 9.6 H Eos % (Auto) 2.5 Baso % (Auto) 0.5 Lymph # 0.7 L [place] # 0.5 Eos # 0.1 Baso # 0.0 Seg Neutrophils % 72.6 H Seg Neutrophils # 3.6 POC ABG pH ABG pH POC ABG pCO2 ABG pCO2 POC ABG pO2 ABG pO2 POC ABG HCO3 ABG HCO3 POC ABG Total CO2 POC ABG O2 Sat ABG O2 Saturation ABG O2 Content POC ABG Base Excess ABG Base Excess ABG Hemoglobin ABG Carboxyhemoglobin ABG Methemoglobin Oxyhemoglobin FiO2 Sodium 136 L Potassium 4.0 Chloride 99.2 Carbon Dioxide 25 Anion Gap 16 BUN 46 H Creatinine 6.7 H Estimated GFR 11 BUN/Creatinine Ratio 7 Glucose 90 POC Glucose 97 Calcium 7.7 L Total Creatine Kinase 164 Vitamin B12 Folate 04/05/19 04/05/19 05:28 06:14 WBC RBC Hgb Hct MCV MCH MCHC RDW Plt Count Lymph % (Auto) [place] % (Auto) Eos % (Auto) Baso % (Auto) Lymph # [place] # Eos # Baso # Seg Neutrophils % Seg Neutrophils # POC ABG pH 7.380 ABG pH POC ABG pCO2 44.0 ABG pCO2 POC ABG pO2 67 L ABG pO2 POC ABG HCO3 26.0 ABG HCO3 POC ABG Total CO2 27 POC ABG O2 Sat 92 ABG O2 Saturation ABG O2 Content POC ABG Base Excess 1 ABG Base Excess ABG Hemoglobin ABG Carboxyhemoglobin ABG Methemoglobin Oxyhemoglobin FiO2 30 Sodium Potassium Chloride Carbon Dioxide Anion Gap BUN Creatinine Estimated GFR BUN/Creatinine Ratio Glucose POC Glucose 108 H Calcium Total Creatine Kinase Vitamin B12 Folate Medications & Allergies - Medications Allergies/Adverse Reactions: Allergies No Known Allergies Allergy (Unverified 03/16/19 17:17) Home Medications: Home Medications Medication Instructions Recorded Confirmed Last Taken Type Unobtainable 03/18/19 03/18/19 Unknown History Active Medications: Generic Name Dose Route Start Last Admin Trade Name Kirkq PRN Reason Stop Dose Admin Acetaminophen 650 mg 04/02/19 23:26 04/05/19 04:48 Tylenol PO 650 mg Q4H PRN Administration Pain, Mild (1-3),temp>100.5 Albuterol 2.5 mg 03/29/19 13:08 Proventil IH Q4HRT PRN Shortness Of Breath Amiodarone HCl 400 mg 04/04/19 12:00 04/04/19 22:09 Cordarone PO 400 mg TID PAOLO Administration Lipase/Protease/Amylase 1 each 03/17/19 14:[address] 10,500 Unit FEEDTUBE PRN PRN For Clogged Feeding Tube Calcium Acetate 1,334 mg 03/31/19 14:00 04/04/19 22:09 Phoslo PO 1,334 mg TID PAOLO Administration Dextrose 50 gm 03/19/19 18:39 03/26/19 23:26 D50w (25gm) Vial IV 50 gm PRN PRN Administration Hypoglycemia Epoetin Jet 20,000 unit 03/31/19 10:15 04/04/19 19:15 Procrit SUB-Q 20,000 unit NEYMAR PRN Administration hemodialysis Fentanyl 50 mcg 03/26/19 12:00 04/01/19 09:47 Sublimaze IV 50 mcg Q1H PRN Administration Pain, Moderate (4-6) Hydrophilic Ointment 1 applic 03/16/19 15:50 Vaseline Lip Therapy TP Q2HR PRN Dry Lips Phenylephrine HCl 100 mg/ 100 mls @ 3 mls/hr 03/17/19 02:30 03/19/19 18:48 Sodium Chloride IV Infused TITR PAOLO Titration Protocol 50 MCG/MIN Fentanyl Citrate 2,000 mcg in 100 mls @ 7.85 mls/hr 03/26/19 12:00 04/05/19 06:46 Fentanyl Drip Premix IV 2 mcg/kg/hr TITR PAOLO 15.7 mls/hr Administration Protocol 1 MCG/KG/HR Cefepime HCl 2 gm in 100 mls @ 200 mls/hr 03/27/19 14:00 04/04/19 16:12 Maxipime/Ns 2 Gm/100 Ml IV 04/05/19 14:29 200 mls/hr Q24H PAOLO Administration Protocol Norepinephrine 4 mg in 250 mls @ 7.5 mls/hr 03/27/19 22:16 04/03/19 15:00 Levophed Drip 4 Mg/Ns 250 Ml IV 0 mcg/min TITR PAOLO 0 mls/hr Titration Protocol 2 MCG/MIN Vasopressin 20 unit/ Sodium 101 mls @ 9.09 mls/hr 03/28/19 09:00 04/03/19 00:00 Chloride IV 0 units/min TITR PAOLO 0 mls/hr Titration Protocol 0.03 UNITS/MIN Sodium Chloride 100 mls @ 999 mls/hr 04/04/19 10:00 Nacl 0.9% IV NEYMAR PRN Hypotension Lorazepam 2 mg 03/26/19 11:54 04/05/19 03:00 Ativan IV 2 mg Q1H PRN Administration Agitation Metoclopramide HCl 5 mg 04/02/19 18:00 04/05/19 06:15 Reglan IV 5 mg Q6HR PAOLO Administration Multi-Ingred Cream/Lotion/Oil/Oint 1 applic 03/16/19 15:50 03/19/19 20:10 Artificial Tears Ophth Oint OU 1 applic Q4HR PRN Administration Dry Eye(s) Ondansetron HCl 4 mg 03/16/19 22:21 Zofran IV Q8H PRN Nausea And Vomiting Pantoprazole Sodium 40 mg 04/04/19 22:00 04/04/19 22:10 Protonix IV 40 mg BID PAOLO Administration Paricalcitol 2 mcg 03/30/19 10:00 04/04/19 09:29 Zemplar IV 2 mcg DAILY PAOLO Administration Simple Syrup 15 ml 03/17/19 14:45 03/26/19 23:19 Simple Syrup FEEDTUBE 15 ml PRN PRN Administration Hypoglycemia Simple Syrup 30 ml 03/17/19 14:45 Simple Syrup FEEDTUBE PRN PRN Hypoglycemia Sodium Bicarbonate 325 mg 03/17/19 14:45 Sodium Bicarbonate FEEDTUBE PRN PRN For Clogged Feeding Tube
[2019-04-05] MEDS: AMIODARONE 200 MG TAB PO SCH ×3 (08:22→19:45)
[2019-04-05] MEDS: CALCIUM ACETATE 667 MG CAP PO SCH ×3 (08:23→19:45)
[2019-04-05] MEDS ORDERED: AMIODARONE 150 MG in DEXTROSE 5% IN WATER 97 ML IV ONE (10:30)
[2019-04-05] MEDS: PANTOPRAZOLE 40 MG INJ IV SCH ×2 (10:48→21:30)
[2019-04-05] MEDS: PARICALCITOL 2 MCG/1 ML INJ IV SCH (10:52)
[2019-04-05] MEDS: METOPROLOL TARTRATE 25 MG TAB PO SCH ×3 (10:52→21:30)
--- NOTE | 2019-04-05 11:10 | Progress Note ---
Assessment and Plan Optimize HR - give additional IV amio bolus, cont PO amio 400mg TID. Cont PO lopressor as tolerated. No systemic AC regarding AFib in setting of anemia, thrombocytopenia, GI bleed. Continue supportive measures. Can consider ischemic evaluation if/when medically stabilized. Overall guarded prognosis. The patient has been seen in conjunction with Dr. Taylor who agrees with the assessment and plan of care. - Patient Problems (1) Cardiopulmonary arrest Current Visit: Yes Status: Acute (2) Acute respiratory failure Current Visit: Yes Status: Acute (3) Paroxysmal atrial fibrillation with RVR Current Visit: Yes Status: Acute (4) SVT (supraventricular tachycardia) Current Visit: Yes Status: Resolved (5) Torsades de pointes Current Visit: Yes Status: Acute (6) Ventricular tachycardia Current Visit: Yes Status: Acute (7) Encephalopathy Current Visit: Yes Status: Acute (8) Septic shock Current Visit: Yes Status: Acute (9) Aspiration pneumonia Current Visit: Yes Status: Acute (10) Meningitis Current Visit: Yes Status: Suspected (11) Cellulitis Current Visit: Yes Status: Acute (12) Acute renal failure Current Visit: Yes Status: Acute (13) GI bleed Current Visit: Yes Status: Acute (14) Anemia Current Visit: Yes Status: Acute (15) Thrombocytopenia Current Visit: Yes Status: Acute (16) DVT (deep venous thrombosis) Current Visit: Yes Status: Acute Subjective Date of service: 04/05/19 Principal diagnosis: anemia - IJ DVT Interval history: pt remains intubated, moving arms and legs, with some purposeful responses noted per neurology. in AFib with RVR HR 130s - 150s. no family at bedside. Objective Last Vital Signs Temp 98.2 F 04/05/19 08:00 Pulse 147 H 04/05/19 10:52 Resp 22 04/05/19 10:57 BP 128/55 04/05/19 10:52 Pulse Ox 100 04/05/19 09:11 - Physical Examination General: Other (intubated, sedated) HEENT: Positive: PERRL Neck: Positive: neck supple Cardiac: Positive: irregularly irregular, S1/S2, Tachycardia Lungs: Positive: Decreased Breath Sounds Neuro: Positive: Other (intubated) Abdomen: Positive: Unremarkable /Rectal: Other (deferred) Skin: Positive: Clear Musculoskeletal: Decreased Range of Motion Extremities: Present: lower extr. pulses (weak, thready ) - Labs and Meds CBC 04/05/19 Range/Units 04:09 WBC 5.0 (4.5-11.0) K/mm3 RBC 2.76 L (3.65-5.03) M/mm3 Hgb 8.4 L (11.8-15.2) gm/dl Hct 25.4 L (35.5-45.6) % Plt Count 133 L (140-440) K/mm3 Lymph # 0.7 L (1.2-5.4) K/mm3 [place] # 0.5 (0.0-0.8) K/mm3 Eos # 0.1 (0.0-0.4) K/mm3 Baso # 0.0 (0.0-0.1) K/mm3 Comprehensive Metabolic Panel 04/05/19 Range/Units 04:09 Sodium 136 L (137-145) mmol/L Potassium 4.0 (3.6-5.0) mmol/L Chloride 99.2 (98-107) mmol/L Carbon Dioxide 25 (22-30) mmol/L BUN 46 H (9-20) mg/dL Creatinine 6.7 H (0.8-1.5) mg/dL Glucose 90 (75-100) mg/dL Calcium 7.7 L (8.4-10.2) mg/dL - Imaging and Cardiology Echo: report reviewed ( EF 40-45%, impaired relaxation. ) - Allied health notes Allied health notes reviewed: nursing
--- NOTE | 2019-04-05 11:59 | Progress Note ---
Assessment and Plan 1. Acute kidney injury: Vasomotor RUBEN in the setting of shock / volume depletion / Rhabdo. Baseline renal function is unknown. CT abdomen was negative for obstructive nephropathy. Monitor renal function. Renal prognosis is guarded. Avoid nephrotoxic agents. Meds dosage based on GFR. Patient was started on hemodialysis on 03/18/19 due to worsening metabolic acidosis and hyperkalemia. Hemodialysis: 03/18, 03/19, 03/20, 03/22, 03/23, 03/24, 03/26, 03/28, 03/29, 03/31, 04/02, 04/04. 2. FEN: Hyperkalemia, improved. Hyponatremia, improved. Metabolic acidosis, on maintenance HD. Volume overload, UF with HD as tolerated. Hypocalcemia, likely multifactorial. On Phoslo and Zemplar. Monitor lytes. 3. Septic shock: Followed by ID. Currently off pressors. Continue to have fever. 4. Rhabdomyolysis: Improved. 5. SVT / V.tach: Followed by Cards. 6. Respiratory failure: On vent. 7. Severe anemia: S/p PRBC. On Epogen. 8. A.fib with RVR. 9. Elevated transaminases. 10. Encephalopathy. Examination: General appearance: well-developed, appears stated age, obese, intubated, on vent HEENT: Atraumatic EYES: Pupils reacting to light Neck: supple Respiratory: coarse breath sounds Cardiology: irregular, S1S2 heard, no murmur Gastrointestinal: no tenderness, obese, BS heard Integumentary: no rash noted Neurologic: opens eyes Ext: 1+ edema of all 4 extremities Hemodialysis access: R IJ temp catheter Subjective Date of service: 04/05/19 Principal diagnosis: anemia - IJ DVT Interval history: Patient was seen and examined at the bedside. Remain on the vent. Objective - Vital Signs Vital signs: Vital Signs - 12hr 04/05/19 04/05/19 04/05/19 00:00 00:16 00:30 Temperature 100.2 F H Pulse Rate 158 H 151 H 141 H Pulse Rate [ 122 H Left Radial] Respiratory 15 16 16 Rate Blood Pressure 140/70 149/73 149/73 O2 Sat by Pulse 99 96 95 Oximetry 04/05/19 04/05/19 04/05/19 00:46 00:58 01:00 Temperature Pulse Rate 131 H 153 H 159 H Pulse Rate [ Left Radial] Respiratory 19 22 Rate Blood Pressure 132/65 132/65 132/65 O2 Sat by Pulse 97 95 94 Oximetry 04/05/19 04/05/19 04/05/19 01:16 01:30 01:46 Temperature Pulse Rate 148 H 141 H 141 H Pulse Rate [ Left Radial] Respiratory 17 17 17 Rate Blood Pressure 147/98 147/98 138/75 O2 Sat by Pulse 89 88 89 Oximetry 04/05/19 04/05/19 04/05/19 02:00 02:16 02:30 Temperature Pulse Rate 151 H 136 H 139 H Pulse Rate [ Left Radial] Respiratory 16 15 17 Rate Blood Pressure 138/75 103/52 102/10 O2 Sat by Pulse 98 97 92 Oximetry 04/05/19 04/05/19 04/05/19 02:46 03:00 03:16 Temperature Pulse Rate 134 H 131 H 136 H Pulse Rate [ Left Radial] Respiratory 17 17 16 Rate Blood Pressure 102/10 103/46 103/46 O2 Sat by Pulse 94 94 95 Oximetry 04/05/19 04/05/19 04/05/19 03:30 03:46 04:00 Temperature 101.0 F H Pulse Rate 129 H 141 H 130 H Pulse Rate [ 134 H Left Radial] Respiratory 15 15 15 Rate Blood Pressure 102/10 123/57 123/57 O2 Sat by Pulse 95 95 98 Oximetry 04/05/19 04/05/19 04/05/19 04:16 04:30 04:46 Temperature Pulse Rate 128 H 137 H 132 H Pulse Rate [ Left Radial] Respiratory 16 15 14 Rate Blood Pressure 135/57 135/57 81/54 O2 Sat by Pulse 96 96 98 Oximetry 04/05/19 04/05/19 04/05/19 05:00 05:07 05:16 Temperature Pulse Rate 133 H 135 H 136 H Pulse Rate [ Left Radial] Respiratory 15 16 Rate Blood Pressure 126/60 126/60 126/60 O2 Sat by Pulse 93 93 93 Oximetry 04/05/19 04/05/19 04/05/19 05:30 05:46 06:00 Temperature Pulse Rate 134 H 145 H 136 H Pulse Rate [ Left Radial] Respiratory 15 14 15 Rate Blood Pressure 133/61 133/61 136/69 O2 Sat by Pulse 97 90 94 Oximetry 04/05/19 04/05/19 04/05/19 06:16 06:30 06:46 Temperature Pulse Rate 154 H 146 H 132 H Pulse Rate [ Left Radial] Respiratory 13 14 15 Rate Blood Pressure 136/69 141/60 141/60 O2 Sat by Pulse 97 96 95 Oximetry 04/05/19 04/05/19 04/05/19 08:00 09:11 10:52 Temperature 98.2 F Pulse Rate 154 H 134 H 147 H Pulse Rate [ Left Radial] Respiratory 18 Rate Blood Pressure 115/56 118/65 128/55 O2 Sat by Pulse 95 100 Oximetry 04/05/19 10:57 Temperature Pulse Rate Pulse Rate [ Left Radial] Respiratory 22 Rate Blood Pressure O2 Sat by Pulse Oximetry - Lab 04/05/19 04:09 04/05/19 04:09 Most recent lab results ABG pH 7.397 pH Units (7.350-7.450) 04/04/19 13:40 ABG pCO2 35.6 mm Hg 04/04/19 13:40 ABG pO2 95.9 mm Hg (80.0-90.0) H 04/04/19 13:40 ABG HCO3 21.4 mmol/L (20.0-26.0) 04/04/19 13:40 ABG O2 Saturation 97.5 % (95.0-99.0) 04/04/19 13:40 Calcium 7.7 mg/dL (8.4-10.2) L 04/05/19 04:09 Phosphorus 5.80 mg/dL (2.5-4.5) H D 04/03/19 08:30 Magnesium 1.90 mg/dL (1.7-2.3) 03/31/19 15:07 Urine Creatinine 106.6 mg/dL (0.1-20.0) H 03/17/19 16:05 Urine Sodium 95 mmol/L 03/17/19 16:05 Medications & Allergies - Medications Allergies/Adverse Reactions: Allergies No Known Allergies Allergy (Unverified 03/16/19 17:17) Home Medications: Home Medications Medication Instructions Recorded Confirmed Last Taken Type Unobtainable 03/18/19 03/18/19 Unknown History Active Medications: Generic Name Dose Route Start Last Admin Trade Name Freq PRN Reason Stop Dose Admin Acetaminophen 650 mg 04/02/19 23:26 04/05/19 10:57 Tylenol PO 650 mg Q4H PRN Administration Pain, Mild (1-3),temp>100.5 Albuterol 2.5 mg 03/29/19 13:08 Proventil IH Q4HRT PRN Shortness Of Breath Amiodarone HCl 400 mg 04/04/19 12:00 04/05/19 08:22 Cordarone PO 400 mg TID PAOLO Administration Lipase/Protease/Amylase 1 each 03/17/19 14:[address] 10,500 Unit FEEDTUBE PRN PRN For Clogged Feeding Tube Calcium Acetate 1,334 mg 03/31/19 14:00 04/05/19 08:23 Phoslo PO 1,334 mg TID PAOLO Administration Dextrose 50 gm 03/19/19 18:39 03/26/19 23:26 D50w (25gm) Vial IV 50 gm PRN PRN Administration Hypoglycemia Epoetin Jet 20,000 unit 03/31/19 10:15 04/04/19 19:15 Procrit SUB-Q 20,000 unit NEYMAR PRN Administration hemodialysis Fentanyl 50 mcg 03/26/19 12:00 04/01/19 09:47 Sublimaze IV 50 mcg Q1H PRN Administration Pain, Moderate (4-6) Hydrophilic Ointment 1 applic 03/16/19 15:50 Vaseline Lip Therapy TP Q2HR PRN Dry Lips Phenylephrine HCl 100 mg/ 100 mls @ 3 mls/hr 03/17/19 02:30 03/19/19 18:48 Sodium Chloride IV Infused TITR PAOLO Titration Protocol 50 MCG/MIN Cefepime HCl 2 gm in 100 mls @ 200 mls/hr 03/27/19 14:00 04/04/19 16:12 Maxipime/Ns 2 Gm/100 Ml IV 04/05/19 14:29 200 mls/hr Q24H PAOLO Administration Protocol Norepinephrine 4 mg in 250 mls @ 7.5 mls/hr 03/27/19 22:16 04/03/19 15:00 Levophed Drip 4 Mg/Ns 250 Ml IV 0 mcg/min TITR PAOLO 0 mls/hr Titration Protocol 2 MCG/MIN Vasopressin 20 unit/ Sodium 101 mls @ 9.09 mls/hr 03/28/19 09:00 04/03/19 00:00 Chloride IV 0 units/min TITR PAOLO 0 mls/hr Titration Protocol 0.03 UNITS/MIN Sodium Chloride 100 mls @ 999 mls/hr 04/04/19 10:00 Nacl 0.9% IV NEYMAR PRN Hypotension Lorazepam 2 mg 03/26/19 11:54 04/05/19 03:00 Ativan IV 2 mg Q1H PRN Administration Agitation Metoclopramide HCl 5 mg 04/02/19 18:00 04/05/19 06:15 Reglan IV 5 mg Q6HR PAOLO Administration Metoprolol Tartrate 12.5 mg 04/05/19 10:00 04/05/19 10:52 Lopressor PO 12.5 mg Q6H PAOLO Administration Multi-Ingred Cream/Lotion/Oil/Oint 1 applic 03/16/19 15:50 03/19/19 20:10 Artificial Tears Ophth Oint OU 1 applic Q4HR PRN Administration Dry Eye(s) Ondansetron HCl 4 mg 03/16/19 22:21 Zofran IV Q8H PRN Nausea And Vomiting Pantoprazole Sodium 40 mg 04/04/19 22:00 04/05/19 10:48 Protonix IV 40 mg BID PAOLO Administration Paricalcitol 2 mcg 03/30/19 10:00 04/05/19 10:52 Zemplar IV 2 mcg DAILY POALO Administration Simple Syrup 15 ml 03/17/19 14:45 03/26/19 23:19 Simple Syrup FEEDTUBE 15 ml PRN PRN Administration Hypoglycemia Simple Syrup 30 ml 03/17/19 14:45 Simple Syrup FEEDTUBE PRN PRN Hypoglycemia Sodium Bicarbonate 325 mg 03/17/19 14:45 Sodium Bicarbonate FEEDTUBE PRN PRN For Clogged Feeding Tube
--- NOTE | 2019-04-05 12:38 | Progress Note ---
Assessment and Plan Cultures: 03/16/2019 sputum: salivary contamination 03/16/2019 Blood culture: no growth 03/17/2019 Urine culture no growth 03/17/2019 throat culture: no growth 03/26/2019 Blood culture: no growth 03/27/2019 Blood culture negative. 04/04/2019 blood culture NGTD Assessment: 43y/o male with possible psych history admitted on 03/16/2019 with: 1) Septic shock: pressors requirement is down. Only on one pressor. On amio gtt. Placed on multiple pressors on 03/28 due to acute GI bleed and severe Hg drop at 4.4. Noted fever 105 after right IJ exchanged overwire on 03/27, fever is better; leukocytosis improving. Fever source is unclear - suspect IJ DVT ?thrombophlebitis, other ?NMS ?sinusitis, ?drug fever. Repeat blood culture no growth so far. Brain MRI shows no acute intracranial abnormality, mild nonspecific chronic white matter changes, fluid throughout the sinuses and masto id air cells. Venous US + right IJ DVT. Initial septic shock - Possible Infectious etiology v/s possibility of Neuroleptic Malignant Syndrome given psych history, high fever of 105F and ex tremely elevated CPK of >100K. Unclear if he was on any psych med. From ID standpoint, we will continue broad coverage for acute bacterial meningitis, tick borne illness, aspiration pneumonia. Blood culture negative UA with mild pyuria. HIV rapid negative. Strep A rapid ag negative. No obvious infectious source identified yet. 2) Probable aspiration pneumonia: Already completed adequate abx. 3) Acute respiratory failure: on the vent. Improving. 4) ?Right axillary edema: no abscess, US no collection seen 5) Acute encephalopathy: improving, communicating today heavily sedated. CT head showed diffuse cerebral edema ?artifact. But too unstable for LP at this time. Low suspicion for HSV meningoencephalitis given the degree of his initial shock and clinical status. Given nationwide acyclovir shortage and low suspicion, would not recommend IV Ganciclovir at this time. 6) Acute renal failure: renally dosing all abx, now on HD 7) Elevated LFTs/shock liver: also likely elevated from Rhabdomyolysis. Viral hepatitis panel negative. LFTs continue to improve. 8) Thrombocytopenia: multifactorial - better 9) Rhabdomyolysis: CK continues to improve 10) ?Enteritis: per CT ? no collection no perforation no obvious ischemic bowel. Gen. Surg following Recommendations: Ongoing fevers - continue renally adjusted cefepime to complete 10 days from 03/27 Wound care team consult - multiple skin abrasions Will follow. Katie Palmer MD [facility] ([facility]) M: [phone] O: [phone] F: [phone] Subjective Date of service: 04/05/19 Principal diagnosis: anemia - IJ DVT Interval history: Febrile to 100.9 with a normal white count. No new issues. Objective - Exam Narrative Exam: General appearance: alert intubated opening eyes following commands Eyes: pupils dannie contracted poorly reactive, no jaundice HENT: Atraumatic; oropharynx with ETT/OGT Neck: no JVD Lungs:distant BS CV: RRR Abdomen: Soft, non-tender Extremities: marked dannie leg edema/arm edema Skin:no rash, +scrotal edema Psych: follows commands no agitated Neuro: follows commands no agitated Right IJ cath - Constitutional Vitals: Vital Signs Temp Pulse Resp BP Pulse Ox 98.2 F 145 H 31 H 119/72 98 04/05/19 08:00 04/05/19 11:58 04/05/19 11:58 04/05/19 11:58 04/05/19 11:58 Temperature -Last 24 Hours Temperature 98.2 F Temperature 101.0 F Temperature 100.2 F Temperature 97.7 F Temperature 101 F Temperature 97.7 F Temperature 101.8 F Temperature 101.8 F - Labs CBC & Chem 7: 04/05/19 04:09 04/05/19 04:09 Labs: Abnormal lab results 04/04/19 04/04/19 04/04/19 Range/Units 13:40 18:18 21:22 RBC (3.65-5.03) M/mm3 Hgb (11.8-15.2) gm/dl Hct (35.5-45.6) % RDW (13.2-15.2) % Plt Count (140-440) K/mm3 [place] % (Auto) (0.0-7.3) % Lymph # (1.2-5.4) K/mm3 Seg Neutrophils % (40.0-70.0) % POC ABG pCO2 47.2 H (35-45) POC ABG pO2 137 H (80-105) ABG pO2 95.9 H (80.0-90.0) mm Hg ABG Base Excess -3.0 L (-2.0-3.0) mmol/L ABG Hemoglobin 8.5 L (14.0-18.0) gm/dl Sodium (137-145) mmol/L BUN (9-20) mg/dL Creatinine (0.8-1.5) mg/dL POC Glucose 107 H (70-105) Calcium (8.4-10.2) mg/dL 04/05/19 04/05/19 04/05/19 Range/Units 04:09 04:09 05:28 RBC 2.76 L (3.65-5.03) M/mm3 Hgb 8.4 L (11.8-15.2) gm/dl Hct 25.4 L (35.5-45.6) % RDW 15.8 H (13.2-15.2) % Plt Count 133 L (140-440) K/mm3 [place] % (Auto) 9.6 H (0.0-7.3) % Lymph # 0.7 L (1.2-5.4) K/mm3 Seg Neutrophils % 72.6 H (40.0-70.0) % POC ABG pCO2 (35-45) POC ABG pO2 67 L (80-105) ABG pO2 (80.0-90.0) mm Hg ABG Base Excess (-2.0-3.0) mmol/L ABG Hemoglobin (14.0-18.0) gm/dl Sodium 136 L (137-145) mmol/L BUN 46 H (9-20) mg/dL Creatinine 6.7 H (0.8-1.5) mg/dL POC Glucose (70-105) Calcium 7.7 L (8.4-10.2) mg/dL 04/05/19 Range/Units 06:14 RBC (3.65-5.03) M/mm3 Hgb (11.8-15.2) gm/dl Hct (35.5-45.6) % RDW (13.2-15.2) % Plt Count (140-440) K/mm3 [place] % (Auto) (0.0-7.3) % Lymph # (1.2-5.4) K/mm3 Seg Neutrophils % (40.0-70.0) % POC ABG pCO2 (35-45) POC ABG pO2 (80-105) ABG pO2 (80.0-90.0) mm Hg ABG Base Excess (-2.0-3.0) mmol/L ABG Hemoglobin (14.0-18.0) gm/dl Sodium (137-145) mmol/L BUN (9-20) mg/dL Creatinine (0.8-1.5) mg/dL POC Glucose 108 H (70-105) Calcium (8.4-10.2) mg/dL
[2019-04-05] MEDS: fentaNYL 100 MCG/2 ML INJ IV PRN (14:47)
[2019-04-05] MEDS: CEFEPIME/NS 2 GM/100 ML 2 GM/100 ML BAG IV SCH (14:47)
--- NOTE | 2019-04-05 15:15 | Progress Note ---
Assessment and Plan Patient is a 43 y/o man w/ a history of psychiatric illness (unknown which psychiatric diagnosis he has been given in the past), who presented on 03/16/19 with altered mental status. During the course of admission, patient was found to have sepsis with septic shock, rhabdomyolysis, RUBEN, and multiorgan failure. According to the patient's clinical findings, the patient likely has toxic metabolic encephalopathy. In support of this diagnosis, the multiple metabolic derangements including multiorgan failure, sepsis, septic shock requiring pressor support, RUBEN, rhabdomyolysis. Plan: 1. Metabolic encephalopathy: - Likely due to multiple underlying metabolic derangements, including multiorgan failure, sepsis, septic shock requiring pressor support, RUBEN. - Possible Meningo-encephalitis, however patient had been on Abx since admission, and is waking up when sedation held. LP not likely to be high yield at this point. - Patient on antibiotics per ID. - EEG showed generalized slowing, no seizures or epileptiform activity. - CT head showed diffuse cerebral edema. MRI brain on 03/26/19 showed no acute abnormality. - Continue supportive care per ICU/primary/ID teams. - Discussed at length with patient's brother regarding current neurologic status, altered mental status due to metabolic abnormalities and sepsis/shock. - Will continue to monitor patient. Thank you for allowing me to take part in the care of this patient. Nahid Carroll MD Neurology Subjective Date of service: 04/05/19 Principal diagnosis: anemia - IJ DVT Interval history: Patient febrile this morning with 101 fever. Objective - Exam Narrative Exam: Patient is intubated. Opens eyes and nods head to vocal stimulus. Following 1- step commands by squeezing hand intermittently. PERRL, corneal reflexes intact, cough/gag weakly intact. Patient moves head with visual threat when checking corneal reflexes. Withdraws to pain stimulus in all extremities. 2+ reflexes throughout. - Vital Sign Vital Signs - 12hr 04/05/19 04/05/19 04/05/19 03:16 03:30 03:46 Temperature Pulse Rate 136 H 129 H 141 H Pulse Rate [ From Monitor] Pulse Rate [ Left Radial] Respiratory 16 15 15 Rate Respiratory Rate [ Generalized] Blood Pressure 103/46 102/10 123/57 O2 Sat by Pulse 95 95 95 Oximetry 04/05/19 04/05/19 04/05/19 04:00 04:16 04:30 Temperature 101.0 F H Pulse Rate 130 H 128 H 137 H Pulse Rate [ From Monitor] Pulse Rate [ 134 H Left Radial] Respiratory 15 16 15 Rate Respiratory Rate [ Generalized] Blood Pressure 123/57 135/57 135/57 O2 Sat by Pulse 98 96 96 Oximetry 04/05/19 04/05/19 04/05/19 04:46 05:00 05:07 Temperature Pulse Rate 132 H 133 H 135 H Pulse Rate [ From Monitor] Pulse Rate [ Left Radial] Respiratory 14 15 Rate Respiratory Rate [ Generalized] Blood Pressure 81/54 126/60 126/60 O2 Sat by Pulse 98 93 93 Oximetry 04/05/19 04/05/19 04/05/19 05:16 05:30 05:46 Temperature Pulse Rate 136 H 134 H 145 H Pulse Rate [ From Monitor] Pulse Rate [ Left Radial] Respiratory 16 15 14 Rate Respiratory Rate [ Generalized] Blood Pressure 126/60 133/61 133/61 O2 Sat by Pulse 93 97 90 Oximetry 04/05/19 04/05/19 04/05/19 06:00 06:16 06:30 Temperature Pulse Rate 136 H 154 H 146 H Pulse Rate [ From Monitor] Pulse Rate [ Left Radial] Respiratory 15 13 14 Rate Respiratory Rate [ Generalized] Blood Pressure 136/69 136/69 141/60 O2 Sat by Pulse 94 97 96 Oximetry 04/05/19 04/05/19 04/05/19 06:46 07:00 07:30 Temperature Pulse Rate 132 H 157 H 152 H Pulse Rate [ From Monitor] Pulse Rate [ Left Radial] Respiratory 15 16 17 Rate Respiratory Rate [ Generalized] Blood Pressure 141/60 141/60 122/59 O2 Sat by Pulse 95 96 95 Oximetry 04/05/19 04/05/19 04/05/19 08:00 08:30 09:00 Temperature 98.2 F Pulse Rate 146 H 129 H 145 H Pulse Rate [ 130 H From Monitor] Pulse Rate [ Left Radial] Respiratory 16 15 16 Rate Respiratory Rate [ Generalized] Blood Pressure 110/58 115/56 115/56 O2 Sat by Pulse 96 96 98 Oximetry 04/05/19 04/05/19 04/05/19 09:11 09:30 10:00 Temperature Pulse Rate 134 H 147 H 137 H Pulse Rate [ From Monitor] Pulse Rate [ Left Radial] Respiratory 18 18 16 Rate Respiratory 16 Rate [ Generalized] Blood Pressure 118/65 118/65 136/75 O2 Sat by Pulse 100 100 100 Oximetry 04/05/19 04/05/19 04/05/19 10:30 10:52 10:57 Temperature Pulse Rate 156 H 147 H Pulse Rate [ From Monitor] Pulse Rate [ Left Radial] Respiratory 25 H 22 Rate Respiratory Rate [ Generalized] Blood Pressure 120/69 128/55 O2 Sat by Pulse 100 Oximetry 04/05/19 04/05/19 04/05/19 11:00 11:30 11:58 Temperature Pulse Rate 166 H 139 H 145 H Pulse Rate [ From Monitor] Pulse Rate [ Left Radial] Respiratory 23 22 31 H Rate Respiratory Rate [ Generalized] Blood Pressure 128/55 117/67 119/72 O2 Sat by Pulse 100 100 98 Oximetry 04/05/19 04/05/19 04/05/19 12:00 12:30 13:00 Temperature 103 F H Pulse Rate 142 H 157 H 142 H Pulse Rate [ 144 H From Monitor] Pulse Rate [ Left Radial] Respiratory 30 H 39 H 35 H Rate Respiratory Rate [ Generalized] Blood Pressure 119/72 134/77 148/90 O2 Sat by Pulse 99 95 97 Oximetry 04/05/19 14:47 Temperature Pulse Rate Pulse Rate [ From Monitor] Pulse Rate [ Left Radial] Respiratory 34 H Rate Respiratory Rate [ Generalized] Blood Pressure O2 Sat by Pulse Oximetry - General Apperance Constitutional: acutely ill - EENT EENT: ATNC, PERRL, mucous membranes moist - Respiratory Respiratory: decreased breath sounds - Cardiovascular Cardiovascular: regular rate, normal S1, normal S2 Extremities: no clubbing, cyanosis, no inflammation - Gastrointestinal Gastrointestinal: normoactive bowel sounds, soft, non-tender - Laboratory Findings CBC and BMP: 04/05/19 04:09 04/05/19 04:09 Abnormal Lab Findings: Abnormal Labs 03/16/19 03/16/19 03/16/19 15:32 16:03 16:05 WBC 27.0 H RBC 5.55 H Hgb 15.7 H Hct 47.1 H RDW Plt Count 75 L Lymph % (Auto) [place] % (Auto) Lymph # Seg Neutrophils % Seg Neuts % (Manual) 85.0 H Lymphocytes % (Manual) 2.0 L Monocytes % (Manual) Nucleated RBC % Seg Neutrophils # Seg Neutrophils # Man 23.0 H Lymphocytes # (Manual) 0.5 L Monocytes # (Manual) PT INR D-Dimer Heparin Anti-Xa Level POC ABG pH ABG pH POC ABG pCO2 POC ABG pO2 ABG pO2 ABG HCO3 ABG O2 Saturation ABG Base Excess ABG Hemoglobin Oxyhemoglobin Sodium 127 L Potassium Chloride 87.8 L Carbon Dioxide 17 L BUN 49 H Creatinine 5.8 H Glucose 150 H POC Glucose 118 H Lactic Acid Calcium 6.6 L Ionized Calcium Phosphorus Magnesium 1.10 L Iron TIBC Ferritin Total Bilirubin Direct Bilirubin AST ALT Alkaline Phosphatase Total Creatine Kinase 17984 H CK-MB (CK-2) Troponin T C-Reactive Protein Total Protein Albumin Triglycerides LDL Cholesterol Direct HDL Cholesterol Free T4 PTH Intact Urine WBC (Auto) Urine Creatinine Salicylates Acetaminophen Crossmatch 03/16/19 03/16/19 03/16/19 16:59 17:05 17:05 WBC RBC Hgb Hct RDW Plt Count Lymph % (Auto) [place] % (Auto) Lymph # Seg Neutrophils % Seg Neuts % (Manual) Lymphocytes % (Manual) Monocytes % (Manual) Nucleated RBC % Seg Neutrophils # Seg Neutrophils # Man Lymphocytes # (Manual) Monocytes # (Manual) PT INR D-Dimer Heparin Anti-Xa Level POC ABG pH 7.297 L ABG pH POC ABG pCO2 33.0 L POC ABG pO2 ABG pO2 ABG HCO3 ABG O2 Saturation ABG Base Excess ABG Hemoglobin Oxyhemoglobin Sodium Potassium Chloride Carbon Dioxide BUN Creatinine Glucose POC Glucose Lactic Acid Calcium Ionized Calcium Phosphorus Magnesium Iron TIBC Ferritin Total Bilirubin Direct Bilirubin AST ALT Alkaline Phosphatase Total Creatine Kinase 73398 H CK-MB (CK-2) 83.1 H Troponin T C-Reactive Protein Total Protein Albumin Triglycerides LDL Cholesterol Direct HDL Cholesterol Free T4 0.72 L PTH Intact Urine WBC (Auto) Urine Creatinine Salicylates Acetaminophen Crossmatch 03/16/19 03/16/19 03/16/19 17:05 17:05 17:05 WBC RBC Hgb Hct RDW Plt Count Lymph % (Auto) [place] % (Auto) Lymph # Seg Neutrophils % Seg Neuts % (Manual) Lymphocytes % (Manual) Monocytes % (Manual) Nucleated RBC % Seg Neutrophils # Seg Neutrophils # Man Lymphocytes # (Manual) Monocytes # (Manual) PT INR D-Dimer Heparin Anti-Xa Level POC ABG pH ABG pH POC ABG pCO2 POC ABG pO2 ABG pO2 ABG HCO3 ABG O2 Saturation ABG Base Excess ABG Hemoglobin Oxyhemoglobin Sodium Potassium Chloride Carbon Dioxide BUN Creatinine Glucose POC Glucose Lactic Acid 5.10 H* Calcium Ionized Calcium Phosphorus Magnesium Iron TIBC Ferritin Total Bilirubin Direct Bilirubin AST ALT Alkaline Phosphatase Total Creatine Kinase CK-MB (CK-2) Troponin T C-Reactive Protein Total Protein Albumin Triglycerides LDL Cholesterol Direct HDL Cholesterol Free T4 PTH Intact Urine WBC (Auto) Urine Creatinine Salicylates < 0.3 L Acetaminophen < 5.0 L Crossmatch 03/16/19 03/16/19 03/16/19 17:05 17:05 20:35 WBC RBC Hgb Hct RDW Plt Count Lymph % (Auto) [place] % (Auto) Lymph # Seg Neutrophils % Seg Neuts % (Manual) Lymphocytes % (Manual) Monocytes % (Manual) Nucleated RBC % Seg Neutrophils # Seg Neutrophils # Man Lymphocytes # (Manual) Monocytes # (Manual) PT 15.9 H INR 1.30 H D-Dimer Heparin Anti-Xa Level POC ABG pH ABG pH POC ABG pCO2 POC ABG pO2 ABG pO2 ABG HCO3 ABG O2 Saturation ABG Base Excess ABG Hemoglobin Oxyhemoglobin Sodium Potassium Chloride Carbon Dioxide BUN Creatinine Glucose POC Glucose Lactic Acid 3.30 H* Calcium Ionized Calcium Phosphorus Magnesium Iron TIBC Ferritin Total Bilirubin 6.20 H Direct Bilirubin 5.9 H AST 800 H ALT 120 H Alkaline Phosphatase Total Creatine Kinase CK-MB (CK-2) Troponin T C-Reactive Protein Total Protein 4.4 L Albumin 2.4 L Triglycerides LDL Cholesterol Direct HDL Cholesterol Free T4 PTH Intact Urine WBC (Auto) Urine Creatinine Salicylates Acetaminophen Crossmatch 03/16/19 03/16/19 03/16/19 21:45 22:32 Unknown WBC RBC Hgb Hct RDW Plt Count Lymph % (Auto) [place] % (Auto) Lymph # Seg Neutrophils % Seg Neuts % (Manual) Lymphocytes % (Manual) Monocytes % (Manual) Nucleated RBC % Seg Neutrophils # Seg Neutrophils # Man Lymphocytes # (Manual) Monocytes # (Manual) PT INR D-Dimer Heparin Anti-Xa Level POC ABG pH ABG pH POC ABG pCO2 POC ABG pO2 ABG pO2 ABG HCO3 ABG O2 Saturation ABG Base Excess ABG Hemoglobin Oxyhemoglobin Sodium Potassium Chloride Carbon Dioxide BUN Creatinine Glucose POC Glucose Lactic Acid 3.30 H* 3.00 H* Calcium Ionized Calcium Phosphorus Magnesium Iron TIBC Ferritin Total Bilirubin Direct Bilirubin AST ALT Alkaline Phosphatase Total Creatine Kinase CK-MB (CK-2) Troponin T 0.047 H D C-Reactive Protein Total Protein Albumin Triglycerides 395 H LDL Cholesterol Direct 10 L HDL Cholesterol 7 L Free T4 PTH Intact Urine WBC (Auto) Urine Creatinine Salicylates Acetaminophen Crossmatch 03/17/19 03/17/19 03/17/19 03:45 03:45 03:45 WBC RBC Hgb Hct RDW Plt Count Lymph % (Auto) [place] % (Auto) Lymph # Seg Neutrophils % Seg Neuts % (Manual) Lymphocytes % (Manual) Monocytes % (Manual) Nucleated RBC % Seg Neutrophils # Seg Neutrophils # Man Lymphocytes # (Manual) Monocytes # (Manual) PT INR D-Dimer Heparin Anti-Xa Level POC ABG pH ABG pH POC ABG pCO2 POC ABG pO2 ABG pO2 ABG HCO3 ABG O2 Saturation ABG Base Excess ABG Hemoglobin Oxyhemoglobin Sodium 131 L Potassium Chloride 88.9 L Carbon Dioxide BUN 53 H Creatinine 7.1 H Glucose POC Glucose Lactic Acid 4.10 H* Calcium 5.4 L* D Ionized Calcium Phosphorus 7.30 H Magnesium 1.60 L Iron TIBC Ferritin Total Bilirubin 5.90 H Direct Bilirubin AST 801 H ALT 109 H Alkaline Phosphatase Total Creatine Kinase 93762 H 84059 H CK-MB (CK-2) 41.5 H Troponin T 0.054 H C-Reactive Protein Total Protein 4.5 L Albumin 2.0 L Triglycerides LDL Cholesterol Direct HDL Cholesterol Free T4 PTH Intact Urine WBC (Auto) Urine Creatinine Salicylates Acetaminophen Crossmatch 03/17/19 03/17/19 03/17/19 05:47 07:16 07:16 WBC RBC Hgb Hct RDW Plt Count Lymph % (Auto) [place] % (Auto) Lymph # Seg Neutrophils % Seg Neuts % (Manual) Lymphocytes % (Manual) Monocytes % (Manual) Nucleated RBC % Seg Neutrophils # Seg Neutrophils # Man Lymphocytes # (Manual) Monocytes # (Manual) PT INR D-Dimer Heparin Anti-Xa Level POC ABG pH 7.193 L ABG pH POC ABG pCO2 45.2 H POC ABG pO2 65 L ABG pO2 ABG HCO3 ABG O2 Saturation ABG Base Excess ABG Hemoglobin Oxyhemoglobin Sodium Potassium Chloride Carbon Dioxide BUN Creatinine Glucose POC Glucose Lactic Acid 5.50 H* Calcium Ionized Calcium Phosphorus Magnesium Iron TIBC Ferritin Total Bilirubin Direct Bilirubin AST ALT Alkaline Phosphatase Total Creatine Kinase 99852 H CK-MB (CK-2) 54.3 H Troponin T 0.058 H C-Reactive Protein Total Protein Albumin Triglycerides LDL Cholesterol Direct HDL Cholesterol Free T4 PTH Intact Urine WBC (Auto) Urine Creatinine Salicylates Acetaminophen Crossmatch 03/17/19 03/17/19 03/17/19 11:52 12:51 13:01 WBC RBC Hgb Hct RDW Plt Count Lymph % (Auto) [place] % (Auto) Lymph # Seg Neutrophils % Seg Neuts % (Manual) Lymphocytes % (Manual) Monocytes % (Manual) Nucleated RBC % Seg Neutrophils # Seg Neutrophils # Man Lymphocytes # (Manual) Monocytes # (Manual) PT INR D-Dimer Heparin Anti-Xa Level POC ABG pH 7.154 L ABG pH POC ABG pCO2 34.3 L POC ABG pO2 73 L ABG pO2 ABG HCO3 ABG O2 Saturation ABG Base Excess ABG Hemoglobin Oxyhemoglobin Sodium Potassium Chloride Carbon Dioxide BUN Creatinine Glucose POC Glucose 60 L Lactic Acid 8.20 H* Calcium Ionized Calcium Phosphorus Magnesium Iron TIBC Ferritin Total Bilirubin Direct Bilirubin AST ALT Alkaline Phosphatase Total Creatine Kinase CK-MB (CK-2) Troponin T C-Reactive Protein Total Protein Albumin Triglycerides LDL Cholesterol Direct HDL Cholesterol Free T4 PTH Intact Urine WBC (Auto) Urine Creatinine Salicylates Acetaminophen Crossmatch 03/17/19 03/17/19 03/17/19 14:37 14:37 14:37 WBC 29.3 H RBC Hgb Hct RDW 15.8 H Plt Count 45 L Lymph % (Auto) [place] % (Auto) Lymph # Seg Neutrophils % Seg Neuts % (Manual) 81.0 H Lymphocytes % (Manual) 1.0 L Monocytes % (Manual) 15.0 H Nucleated RBC % Seg Neutrophils # Seg Neutrophils # Man 23.7 H Lymphocytes # (Manual) 0.3 L Monocytes # (Manual) 4.4 H PT INR D-Dimer Heparin Anti-Xa Level POC ABG pH ABG pH POC ABG pCO2 POC ABG pO2 ABG pO2 ABG HCO3 ABG O2 Saturation ABG Base Excess ABG Hemoglobin Oxyhemoglobin Sodium Potassium Chloride Carbon Dioxide BUN Creatinine Glucose POC Glucose Lactic Acid 4.90 H* Calcium Ionized Calcium Phosphorus Magnesium Iron TIBC Ferritin Total Bilirubin Direct Bilirubin AST ALT Alkaline Phosphatase Total Creatine Kinase CK-MB (CK-2) Troponin T C-Reactive Protein 24.90 H Total Protein Albumin Triglycerides LDL Cholesterol Direct HDL Cholesterol Free T4 PTH Intact Urine WBC (Auto) Urine Creatinine Salicylates Acetaminophen Crossmatch 03/17/19 03/17/19 03/17/19 16:05 16:05 17:02 WBC RBC Hgb Hct RDW Plt Count Lymph % (Auto) [place] % (Auto) Lymph # Seg Neutrophils % Seg Neuts % (Manual) Lymphocytes % (Manual) Monocytes % (Manual) Nucleated RBC % Seg Neutrophils # Seg Neutrophils # Man Lymphocytes # (Manual) Monocytes # (Manual) PT INR D-Dimer Heparin Anti-Xa Level POC ABG pH 7.183 L ABG pH POC ABG pCO2 POC ABG pO2 65 L ABG pO2 ABG HCO3 ABG O2 Saturation ABG Base Excess ABG Hemoglobin Oxyhemoglobin Sodium Potassium Chloride Carbon Dioxide BUN Creatinine Glucose POC Glucose Lactic Acid Calcium Ionized Calcium Phosphorus Magnesium Iron TIBC Ferritin Total Bilirubin Direct Bilirubin AST ALT Alkaline Phosphatase Total Creatine Kinase CK-MB (CK-2) Troponin T C-Reactive Protein Total Protein Albumin Triglycerides LDL Cholesterol Direct HDL Cholesterol Free T4 PTH Intact Urine WBC (Auto) 30.0 H Urine Creatinine 106.6 H Salicylates Acetaminophen Crossmatch 03/18/19 03/18/19 03/18/19 05:12 05:16 05:53 WBC RBC Hgb Hct RDW Plt Count Lymph % (Auto) [place] % (Auto) Lymph # Seg Neutrophils % Seg Neuts % (Manual) Lymphocytes % (Manual) Monocytes % (Manual) Nucleated RBC % Seg Neutrophils # Seg Neutrophils # Man Lymphocytes # (Manual) Monocytes # (Manual) PT INR D-Dimer Heparin Anti-Xa Level POC ABG pH 7.257 L ABG pH POC ABG pCO2 31.6 L POC ABG pO2 69 L ABG pO2 ABG HCO3 ABG O2 Saturation ABG Base Excess ABG Hemoglobin Oxyhemoglobin Sodium Potassium Chloride Carbon Dioxide BUN Creatinine Glucose POC Glucose 141 H Lactic Acid 5.00 H* Calcium Ionized Calcium Phosphorus Magnesium Iron TIBC Ferritin Total Bilirubin Direct Bilirubin AST ALT Alkaline Phosphatase Total Creatine Kinase CK-MB (CK-2) Troponin T C-Reactive Protein Total Protein Albumin Triglycerides LDL Cholesterol Direct HDL Cholesterol Free T4 PTH Intact Urine WBC (Auto) Urine Creatinine Salicylates Acetaminophen Crossmatch 03/18/19 03/18/19 03/18/19 06:57 08:40 08:40 WBC 31.7 H RBC Hgb Hct RDW 15.5 H Plt Count 35 L Lymph % (Auto) [place] % (Auto) Lymph # Seg Neutrophils % Seg Neuts % (Manual) Lymphocytes % (Manual) Monocytes % (Manual) Nucleated RBC % Seg Neutrophils # Seg Neutrophils # Man Lymphocytes # (Manual) Monocytes # (Manual) PT INR D-Dimer Heparin Anti-Xa Level POC ABG pH ABG pH POC ABG pCO2 POC ABG pO2 ABG pO2 ABG HCO3 ABG O2 Saturation ABG Base Excess ABG Hemoglobin Oxyhemoglobin Sodium 132 L Potassium 5.5 H D Chloride 88.5 L Carbon Dioxide 18 L BUN 71 H Creatinine 8.1 H Glucose 205 H POC Glucose Lactic Acid 5.00 H* Calcium 4.1 L* D Ionized Calcium Phosphorus Magnesium 2.40 H Iron TIBC Ferritin Total Bilirubin 7.50 H Direct Bilirubin AST 1088 H ALT 159 H Alkaline Phosphatase 190 H Total Creatine Kinase 484469 H CK-MB (CK-2) Troponin T C-Reactive Protein Total Protein 4.7 L Albumin 1.8 L Triglycerides LDL Cholesterol Direct HDL Cholesterol Free T4 PTH Intact Urine WBC (Auto) Urine Creatinine Salicylates Acetaminophen Crossmatch 03/18/19 03/18/19 03/18/19 12:33 12:50 13:19 WBC RBC Hgb Hct RDW Plt Count Lymph % (Auto) [place] % (Auto) Lymph # Seg Neutrophils % Seg Neuts % (Manual) Lymphocytes % (Manual) Monocytes % (Manual) Nucleated RBC % Seg Neutrophils # Seg Neutrophils # Man Lymphocytes # (Manual) Monocytes # (Manual) PT INR D-Dimer Heparin Anti-Xa Level POC ABG pH 7.282 L ABG pH POC ABG pCO2 POC ABG pO2 67 L ABG pO2 ABG HCO3 ABG O2 Saturation ABG Base Excess ABG Hemoglobin Oxyhemoglobin Sodium Potassium Chloride Carbon Dioxide BUN Creatinine Glucose POC Glucose 129 H Lactic Acid 3.30 H* Calcium Ionized Calcium Phosphorus Magnesium Iron TIBC Ferritin Total Bilirubin Direct Bilirubin AST ALT Alkaline Phosphatase Total Creatine Kinase CK-MB (CK-2) Troponin T C-Reactive Protein Total Protein Albumin Triglycerides LDL Cholesterol Direct HDL Cholesterol Free T4 PTH Intact Urine WBC (Auto) Urine Creatinine Salicylates Acetaminophen Crossmatch 03/18/19 03/18/19 03/18/19 13:19 16:50 18:11 WBC RBC Hgb Hct RDW Plt Count Lymph % (Auto) [place] % (Auto) Lymph # Seg Neutrophils % Seg Neuts % (Manual) Lymphocytes % (Manual) Monocytes % (Manual) Nucleated RBC % Seg Neutrophils # Seg Neutrophils # Man Lymphocytes # (Manual) Monocytes # (Manual) PT INR D-Dimer Heparin Anti-Xa Level POC ABG pH ABG pH POC ABG pCO2 POC ABG pO2 59 L ABG pO2 ABG HCO3 ABG O2 Saturation ABG Base Excess ABG Hemoglobin Oxyhemoglobin Sodium Potassium Chloride Carbon Dioxide BUN Creatinine Glucose POC Glucose 151 H Lactic Acid Calcium 4.2 L* Ionized Calcium Phosphorus Magnesium Iron TIBC Ferritin Total Bilirubin Direct Bilirubin AST ALT Alkaline Phosphatase Total Creatine Kinase 143442 H CK-MB (CK-2) Troponin T C-Reactive Protein Total Protein Albumin Triglycerides LDL Cholesterol Direct HDL Cholesterol Free T4 PTH Intact Urine WBC (Auto) Urine Creatinine Salicylates Acetaminophen Crossmatch 03/18/19 03/18/19 03/19/19 18:20 23:39 01:42 WBC RBC Hgb Hct RDW Plt Count Lymph % (Auto) [place] % (Auto) Lymph # Seg Neutrophils % Seg Neuts % (Manual) Lymphocytes % (Manual) Monocytes % (Manual) Nucleated RBC % Seg Neutrophils # Seg Neutrophils # Man Lymphocytes # (Manual) Monocytes # (Manual) PT INR D-Dimer Heparin Anti-Xa Level POC ABG pH 7.345 L ABG pH 7.285 L POC ABG pCO2 POC ABG pO2 59 L ABG pO2 44.0 L ABG HCO3 ABG O2 Saturation 70.9 L ABG Base Excess -5.7 L ABG Hemoglobin 11.9 L Oxyhemoglobin 69.6 L Sodium Potassium Chloride Carbon Dioxide BUN Creatinine Glucose POC Glucose 152 H Lactic Acid Calcium Ionized Calcium Phosphorus Magnesium Iron TIBC Ferritin Total Bilirubin Direct Bilirubin AST ALT Alkaline Phosphatase Total Creatine Kinase CK-MB (CK-2) Troponin T C-Reactive Protein Total Protein Albumin Triglycerides LDL Cholesterol Direct HDL Cholesterol Free T4 PTH Intact Urine WBC (Auto) Urine Creatinine Salicylates Acetaminophen Crossmatch 03/19/19 03/19/19 03/19/19 04:00 04:00 05:35 WBC 36.5 H RBC Hgb Hct RDW 15.8 H Plt Count 35 L Lymph % (Auto) [place] % (Auto) Lymph # Seg Neutrophils % Seg Neuts % (Manual) Lymphocytes % (Manual) Monocytes % (Manual) Nucleated RBC % Seg Neutrophils # Seg Neutrophils # Man Lymphocytes # (Manual) Monocytes # (Manual) PT INR D-Dimer Heparin Anti-Xa Level POC ABG pH ABG pH 7.265 L POC ABG pCO2 POC ABG pO2 ABG pO2 35.4 L* ABG HCO3 ABG O2 Saturation 54.4 L ABG Base Excess -6.7 L ABG Hemoglobin 12.9 L Oxyhemoglobin 53.4 L Sodium 132 L Potassium 5.7 H Chloride 89.8 L Carbon Dioxide 19 L BUN 62 H Creatinine 6.4 H Glucose 151 H POC Glucose Lactic Acid Calcium 5.2 L* D Ionized Calcium Phosphorus Magnesium Iron TIBC Ferritin Total Bilirubin 7.80 H Direct Bilirubin AST 682 H ALT 130 H Alkaline Phosphatase 167 H Total Creatine Kinase CK-MB (CK-2) Troponin T C-Reactive Protein Total Protein 4.8 L Albumin 2.3 L Triglycerides LDL Cholesterol Direct HDL Cholesterol Free T4 PTH Intact Urine WBC (Auto) Urine Creatinine Salicylates Acetaminophen Crossmatch 03/19/19 03/19/19 03/19/19 05:49 09:16 09:50 WBC RBC Hgb Hct RDW Plt Count Lymph % (Auto) [place] % (Auto) Lymph # Seg Neutrophils % Seg Neuts % (Manual) Lymphocytes % (Manual) Monocytes % (Manual) Nucleated RBC % Seg Neutrophils # Seg Neutrophils # Man Lymphocytes # (Manual) Monocytes # (Manual) PT INR D-Dimer Heparin Anti-Xa Level POC ABG pH 7.222 L ABG pH POC ABG pCO2 56.6 H POC ABG pO2 ABG pO2 ABG HCO3 ABG O2 Saturation ABG Base Excess ABG Hemoglobin Oxyhemoglobin Sodium Potassium Chloride Carbon Dioxide BUN Creatinine Glucose POC Glucose 154 H Lactic Acid 2.70 H* Calcium Ionized Calcium Phosphorus Magnesium Iron TIBC Ferritin Total Bilirubin Direct Bilirubin AST ALT Alkaline Phosphatase Total Creatine Kinase CK-MB (CK-2) Troponin T C-Reactive Protein Total Protein Albumin Triglycerides LDL Cholesterol Direct HDL Cholesterol Free T4 PTH Intact Urine WBC (Auto) Urine Creatinine Salicylates Acetaminophen Crossmatch 03/19/19 03/19/19 03/19/19 09:50 11:28 17:58 WBC RBC Hgb Hct RDW Plt Count Lymph % (Auto) [place] % (Auto) Lymph # Seg Neutrophils % Seg Neuts % (Manual) Lymphocytes % (Manual) Monocytes % (Manual) Nucleated RBC % Seg Neutrophils # Seg Neutrophils # Man Lymphocytes # (Manual) Monocytes # (Manual) PT INR D-Dimer Heparin Anti-Xa Level POC ABG pH 7.250 L ABG pH POC ABG pCO2 52.6 H POC ABG pO2 ABG pO2 ABG HCO3 ABG O2 Saturation ABG Base Excess ABG Hemoglobin Oxyhemoglobin Sodium Potassium Chloride Carbon Dioxide BUN Creatinine Glucose POC Glucose 160 H Lactic Acid Calcium Ionized Calcium Phosphorus Magnesium Iron TIBC Ferritin Total Bilirubin Direct Bilirubin AST ALT Alkaline Phosphatase Total Creatine Kinase 87701 H CK-MB (CK-2) Troponin T C-Reactive Protein Total Protein Albumin Triglycerides LDL Cholesterol Direct HDL Cholesterol Free T4 PTH Intact Urine WBC (Auto) Urine Creatinine Salicylates Acetaminophen Crossmatch 03/19/19 03/19/19 03/20/19 19:48 21:03 02:16 WBC RBC Hgb Hct RDW Plt Count Lymph % (Auto) [place] % (Auto) Lymph # Seg Neutrophils % Seg Neuts % (Manual) Lymphocytes % (Manual) Monocytes % (Manual) Nucleated RBC % Seg Neutrophils # Seg Neutrophils # Man Lymphocytes # (Manual) Monocytes # (Manual) PT INR D-Dimer Heparin Anti-Xa Level POC ABG pH 7.279 L ABG pH POC ABG pCO2 50.3 H POC ABG pO2 129 H ABG pO2 ABG HCO3 ABG O2 Saturation ABG Base Excess ABG Hemoglobin Oxyhemoglobin Sodium Potassium Chloride Carbon Dioxide BUN Creatinine Glucose POC Glucose 119 H 119 H Lactic Acid Calcium Ionized Calcium Phosphorus Magnesium Iron TIBC Ferritin Total Bilirubin Direct Bilirubin AST ALT Alkaline Phosphatase Total Creatine Kinase CK-MB (CK-2) Troponin T C-Reactive Protein Total Protein Albumin Triglycerides LDL Cholesterol Direct HDL Cholesterol Free T4 PTH Intact Urine WBC (Auto) Urine Creatinine Salicylates Acetaminophen Crossmatch 03/20/19 03/20/19 03/20/19 04:23 05:05 09:30 WBC 36.3 H RBC Hgb Hct RDW 15.5 H Plt Count 29 L Lymph % (Auto) [place] % (Auto) Lymph # Seg Neutrophils % Seg Neuts % (Manual) Lymphocytes % (Manual) Monocytes % (Manual) Nucleated RBC % Seg Neutrophils # Seg Neutrophils # Man Lymphocytes # (Manual) Monocytes # (Manual) PT INR D-Dimer Heparin Anti-Xa Level POC ABG pH ABG pH POC ABG pCO2 POC ABG pO2 280 H ABG pO2 ABG HCO3 ABG O2 Saturation ABG Base Excess ABG Hemoglobin Oxyhemoglobin Sodium Potassium Chloride Carbon Dioxide BUN Creatinine Glucose POC Glucose 115 H Lactic Acid Calcium Ionized Calcium Phosphorus Magnesium Iron TIBC Ferritin Total Bilirubin Direct Bilirubin AST ALT Alkaline Phosphatase Total Creatine Kinase CK-MB (CK-2) Troponin T C-Reactive Protein Total Protein Albumin Triglycerides LDL Cholesterol Direct HDL Cholesterol Free T4 PTH Intact Urine WBC (Auto) Urine Creatinine Salicylates Acetaminophen Crossmatch 03/20/19 03/20/19 03/20/19 09:30 09:30 11:34 WBC RBC Hgb Hct RDW Plt Count Lymph % (Auto) [place] % (Auto) Lymph # Seg Neutrophils % Seg Neuts % (Manual) Lymphocytes % (Manual) Monocytes % (Manual) Nucleated RBC % Seg Neutrophils # Seg Neutrophils # Man Lymphocytes # (Manual) Monocytes # (Manual) PT INR D-Dimer Heparin Anti-Xa Level POC ABG pH ABG pH POC ABG pCO2 POC ABG pO2 ABG pO2 ABG HCO3 ABG O2 Saturation ABG Base Excess ABG Hemoglobin Oxyhemoglobin Sodium 131 L Potassium Chloride 92.3 L Carbon Dioxide 20 L BUN 68 H Creatinine 6.1 H Glucose 164 H POC Glucose 141 H Lactic Acid Calcium 5.3 L* Ionized Calcium Phosphorus Magnesium Iron TIBC Ferritin Total Bilirubin 9.50 H Direct Bilirubin AST 381 H ALT 116 H Alkaline Phosphatase 255 H Total Creatine Kinase 37373 H CK-MB (CK-2) Troponin T C-Reactive Protein Total Protein 5.1 L Albumin 2.3 L Triglycerides LDL Cholesterol Direct HDL Cholesterol Free T4 PTH Intact Urine WBC (Auto) Urine Creatinine Salicylates Acetaminophen Crossmatch 03/20/19 03/20/19 03/20/19 14:41 14:45 18:50 WBC RBC Hgb Hct RDW Plt Count Lymph % (Auto) [place] % (Auto) Lymph # Seg Neutrophils % Seg Neuts % (Manual) Lymphocytes % (Manual) Monocytes % (Manual) Nucleated RBC % Seg Neutrophils # Seg Neutrophils # Man Lymphocytes # (Manual) Monocytes # (Manual) PT INR D-Dimer Heparin Anti-Xa Level POC ABG pH ABG pH POC ABG pCO2 POC ABG pO2 ABG pO2 ABG HCO3 ABG O2 Saturation ABG Base Excess ABG Hemoglobin Oxyhemoglobin Sodium Potassium Chloride Carbon Dioxide BUN Creatinine Glucose POC Glucose 117 H Lactic Acid 2.90 H* Calcium Ionized Calcium Phosphorus Magnesium Iron TIBC Ferritin Total Bilirubin Direct Bilirubin AST ALT Alkaline Phosphatase Total Creatine Kinase CK-MB (CK-2) Troponin T C-Reactive Protein 13.30 H Total Protein Albumin Triglycerides LDL Cholesterol Direct HDL Cholesterol Free T4 PTH Intact Urine WBC (Auto) Urine Creatinine Salicylates Acetaminophen Crossmatch 03/20/19 03/21/19 03/21/19 21:55 04:26 04:26 WBC 37.8 H RBC Hgb Hct RDW 15.4 H Plt Count 36 L Lymph % (Auto) [place] % (Auto) Lymph # Seg Neutrophils % Seg Neuts % (Manual) 93.0 H Lymphocytes % (Manual) 3.0 L Monocytes % (Manual) Nucleated RBC % 1.0 H Seg Neutrophils # 34.6 H Seg Neutrophils # Man 35.2 H Lymphocytes # (Manual) 1.1 L Monocytes # (Manual) PT INR D-Dimer Heparin Anti-Xa Level POC ABG pH ABG pH POC ABG pCO2 POC ABG pO2 ABG pO2 ABG HCO3 ABG O2 Saturation ABG Base Excess ABG Hemoglobin Oxyhemoglobin Sodium 131 L Potassium Chloride 90.7 L Carbon Dioxide 21 L BUN 69 H Creatinine 5.7 H Glucose 170 H POC Glucose 128 H Lactic Acid Calcium 6.1 L D Ionized Calcium Phosphorus Magnesium Iron TIBC Ferritin Total Bilirubin 9.50 H Direct Bilirubin AST 308 H ALT 124 H Alkaline Phosphatase 327 H Total Creatine Kinase 69122 H CK-MB (CK-2) Troponin T C-Reactive Protein Total Protein 5.7 L Albumin 2.6 L Triglycerides LDL Cholesterol Direct HDL Cholesterol Free T4 PTH Intact Urine WBC (Auto) Urine Creatinine Salicylates Acetaminophen Crossmatch 03/21/19 03/21/19 03/21/19 05:17 05:39 08:29 WBC RBC Hgb Hct RDW Plt Count Lymph % (Auto) [place] % (Auto) Lymph # Seg Neutrophils % Seg Neuts % (Manual) Lymphocytes % (Manual) Monocytes % (Manual) Nucleated RBC % Seg Neutrophils # Seg Neutrophils # Man Lymphocytes # (Manual) Monocytes # (Manual) PT INR D-Dimer Heparin Anti-Xa Level POC ABG pH ABG pH POC ABG pCO2 POC ABG pO2 209 H ABG pO2 ABG HCO3 ABG O2 Saturation ABG Base Excess ABG Hemoglobin Oxyhemoglobin Sodium Potassium Chloride Carbon Dioxide BUN Creatinine Glucose POC Glucose 145 H Lactic Acid Calcium Ionized Calcium Phosphorus Magnesium Iron TIBC Ferritin Total Bilirubin Direct Bilirubin AST ALT Alkaline Phosphatase Total Creatine Kinase 50991 H CK-MB (CK-2) Troponin T C-Reactive Protein Total Protein Albumin Triglycerides LDL Cholesterol Direct HDL Cholesterol Free T4 PTH Intact Urine WBC (Auto) Urine Creatinine Salicylates Acetaminophen Crossmatch 03/21/19 03/21/19 03/21/19 08:29 11:43 12:00 WBC RBC Hgb Hct RDW Plt Count Lymph % (Auto) [place] % (Auto) Lymph # Seg Neutrophils % Seg Neuts % (Manual) Lymphocytes % (Manual) Monocytes % (Manual) Nucleated RBC % Seg Neutrophils # Seg Neutrophils # Man Lymphocytes # (Manual) Monocytes # (Manual) PT INR D-Dimer Heparin Anti-Xa Level POC ABG pH ABG pH POC ABG pCO2 POC ABG pO2 ABG pO2 ABG HCO3 ABG O2 Saturation ABG Base Excess ABG Hemoglobin Oxyhemoglobin Sodium Potassium Chloride Carbon Dioxide BUN Creatinine Glucose POC Glucose 123 H Lactic Acid 2.60 H* 2.20 H* Calcium Ionized Calcium Phosphorus Magnesium Iron TIBC Ferritin Total Bilirubin Direct Bilirubin AST ALT Alkaline Phosphatase Total Creatine Kinase CK-MB (CK-2) Troponin T C-Reactive Protein Total Protein Albumin Triglycerides LDL Cholesterol Direct HDL Cholesterol Free T4 PTH Intact Urine WBC (Auto) Urine Creatinine Salicylates Acetaminophen Crossmatch 03/21/19 03/21/19 03/21/19 14:11 18:28 19:32 WBC RBC Hgb Hct RDW Plt Count Lymph % (Auto) [place] % (Auto) Lymph # Seg Neutrophils % Seg Neuts % (Manual) Lymphocytes % (Manual) Monocytes % (Manual) Nucleated RBC % Seg Neutrophils # Seg Neutrophils # Man Lymphocytes # (Manual) Monocytes # (Manual) PT INR D-Dimer Heparin Anti-Xa Level POC ABG pH 7.293 L ABG pH POC ABG pCO2 POC ABG pO2 ABG pO2 ABG HCO3 ABG O2 Saturation ABG Base Excess ABG Hemoglobin Oxyhemoglobin Sodium Potassium Chloride Carbon Dioxide BUN Creatinine Glucose POC Glucose 153 H Lactic Acid 2.10 H* Calcium Ionized Calcium Phosphorus Magnesium Iron TIBC Ferritin Total Bilirubin Direct Bilirubin AST ALT Alkaline Phosphatase Total Creatine Kinase CK-MB (CK-2) Troponin T C-Reactive Protein Total Protein Albumin Triglycerides LDL Cholesterol Direct HDL Cholesterol Free T4 PTH Intact Urine WBC (Auto) Urine Creatinine Salicylates Acetaminophen Crossmatch 03/21/19 03/22/19 03/22/19 23:38 05:08 05:51 WBC RBC Hgb Hct RDW Plt Count Lymph % (Auto) [place] % (Auto) Lymph # Seg Neutrophils % Seg Neuts % (Manual) Lymphocytes % (Manual) Monocytes % (Manual) Nucleated RBC % Seg Neutrophils # Seg Neutrophils # Man Lymphocytes # (Manual) Monocytes # (Manual) PT INR D-Dimer Heparin Anti-Xa Level POC ABG pH 7.283 L ABG pH POC ABG pCO2 POC ABG pO2 53 L ABG pO2 ABG HCO3 ABG O2 Saturation ABG Base Excess ABG Hemoglobin Oxyhemoglobin Sodium Potassium Chloride Carbon Dioxide BUN Creatinine Glucose POC Glucose 149 H 131 H Lactic Acid Calcium Ionized Calcium Phosphorus Magnesium Iron TIBC Ferritin Total Bilirubin Direct Bilirubin AST ALT Alkaline Phosphatase Total Creatine Kinase CK-MB (CK-2) Troponin T C-Reactive Protein Total Protein Albumin Triglycerides LDL Cholesterol Direct HDL Cholesterol Free T4 PTH Intact Urine WBC (Auto) Urine Creatinine Salicylates Acetaminophen Crossmatch 03/22/19 03/22/19 03/22/19 08:00 08:00 18:19 WBC 36.7 H RBC Hgb 11.0 L Hct 33.5 L RDW 15.5 H Plt Count 43 L Lymph % (Auto) [place] % (Auto) Lymph # Seg Neutrophils % Seg Neuts % (Manual) 87.0 H Lymphocytes % (Manual) 7.0 L Monocytes % (Manual) Nucleated RBC % Seg Neutrophils # Seg Neutrophils # Man 31.9 H Lymphocytes # (Manual) Monocytes # (Manual) PT INR D-Dimer Heparin Anti-Xa Level POC ABG pH ABG pH POC ABG pCO2 46.4 H POC ABG pO2 108 H ABG pO2 ABG HCO3 ABG O2 Saturation ABG Base Excess ABG Hemoglobin Oxyhemoglobin Sodium 132 L Potassium 5.6 H Chloride 89.6 L Carbon Dioxide 20 L BUN 101 H Creatinine 7.4 H Glucose 124 H POC Glucose Lactic Acid Calcium 5.2 L* Ionized Calcium Phosphorus Magnesium Iron TIBC Ferritin Total Bilirubin 2.80 H Direct Bilirubin AST 119 H ALT 86 H Alkaline Phosphatase 245 H Total Creatine Kinase CK-MB (CK-2) Troponin T C-Reactive Protein Total Protein 5.6 L Albumin 2.5 L Triglycerides LDL Cholesterol Direct HDL Cholesterol Free T4 PTH Intact Urine WBC (Auto) Urine Creatinine Salicylates Acetaminophen Crossmatch 03/22/19 03/23/19 03/23/19 20:37 04:49 05:28 WBC 35.9 H RBC Hgb 10.8 L Hct 33.2 L RDW 15.5 H Plt Count 49 L Lymph % (Auto) [place] % (Auto) Lymph # Seg Neutrophils % Seg Neuts % (Manual) 81.0 H Lymphocytes % (Manual) 3.5 L Monocytes % (Manual) Nucleated RBC % Seg Neutrophils # Seg Neutrophils # Man 29.1 H Lymphocytes # (Manual) Monocytes # (Manual) 1.4 H PT INR D-Dimer Heparin Anti-Xa Level POC ABG pH 7.296 L ABG pH POC ABG pCO2 46.2 H POC ABG pO2 ABG pO2 ABG HCO3 ABG O2 Saturation ABG Base Excess ABG Hemoglobin Oxyhemoglobin Sodium 129 L Potassium 5.2 H Chloride 91.1 L Carbon Dioxide BUN 91 H Creatinine 6.6 H Glucose 190 H POC Glucose Lactic Acid Calcium 5.3 L* Ionized Calcium Phosphorus Magnesium Iron TIBC Ferritin Total Bilirubin 1.80 H Direct Bilirubin AST 80 H ALT 62 H Alkaline Phosphatase 209 H Total Creatine Kinase 9758 H CK-MB (CK-2) Troponin T C-Reactive Protein Total Protein 5.2 L Albumin 2.2 L Triglycerides LDL Cholesterol Direct HDL Cholesterol Free T4 PTH Intact Urine WBC (Auto) Urine Creatinine Salicylates Acetaminophen Crossmatch 03/23/19 03/23/19 03/23/19 05:28 05:31 11:33 WBC 29.7 H RBC 3.59 L Hgb 10.1 L Hct 31.1 L RDW 15.4 H Plt Count 47 L Lymph % (Auto) [place] % (Auto) Lymph # Seg Neutrophils % Seg Neuts % (Manual) 89.0 H Lymphocytes % (Manual) 6.0 L Monocytes % (Manual) Nucleated RBC % 1.0 H Seg Neutrophils # Seg Neutrophils # Man 26.4 H Lymphocytes # (Manual) Monocytes # (Manual) PT INR D-Dimer Heparin Anti-Xa Level POC ABG pH ABG pH POC ABG pCO2 POC ABG pO2 ABG pO2 ABG HCO3 ABG O2 Saturation ABG Base Excess ABG Hemoglobin Oxyhemoglobin Sodium Potassium Chloride Carbon Dioxide BUN Creatinine Glucose POC Glucose 122 H 113 H Lactic Acid Calcium Ionized Calcium Phosphorus Magnesium Iron TIBC Ferritin Total Bilirubin Direct Bilirubin AST ALT Alkaline Phosphatase Total Creatine Kinase CK-MB (CK-2) Troponin T C-Reactive Protein Total Protein Albumin Triglycerides LDL Cholesterol Direct HDL Cholesterol Free T4 PTH Intact Urine WBC (Auto) Urine Creatinine Salicylates Acetaminophen Crossmatch 03/23/19 03/24/19 03/24/19 17:47 00:00 04:50 WBC 35.0 H RBC Hgb 10.4 L Hct 32.4 L RDW Plt Count 60 L Lymph % (Auto) [place] % (Auto) Lymph # Seg Neutrophils % Seg Neuts % (Manual) 93.0 H Lymphocytes % (Manual) 5.0 L Monocytes % (Manual) Nucleated RBC % 7.0 H Seg Neutrophils # Seg Neutrophils # Man 32.6 H Lymphocytes # (Manual) Monocytes # (Manual) PT INR D-Dimer Heparin Anti-Xa Level POC ABG pH ABG pH POC ABG pCO2 POC ABG pO2 ABG pO2 ABG HCO3 ABG O2 Saturation ABG Base Excess ABG Hemoglobin Oxyhemoglobin Sodium Potassium Chloride Carbon Dioxide BUN Creatinine Glucose POC Glucose 111 H 108 H Lactic Acid Calcium Ionized Calcium Phosphorus Magnesium Iron TIBC Ferritin Total Bilirubin Direct Bilirubin AST ALT Alkaline Phosphatase Total Creatine Kinase CK-MB (CK-2) Troponin T C-Reactive Protein Total Protein Albumin Triglycerides LDL Cholesterol Direct HDL Cholesterol Free T4 PTH Intact Urine WBC (Auto) Urine Creatinine Salicylates Acetaminophen Crossmatch 03/24/19 03/24/19 03/24/19 04:50 05:06 12:55 WBC RBC Hgb Hct RDW Plt Count Lymph % (Auto) [place] % (Auto) Lymph # Seg Neutrophils % Seg Neuts % (Manual) Lymphocytes % (Manual) Monocytes % (Manual) Nucleated RBC % Seg Neutrophils # Seg Neutrophils # Man Lymphocytes # (Manual) Monocytes # (Manual) PT INR D-Dimer Heparin Anti-Xa Level POC ABG pH ABG pH POC ABG pCO2 POC ABG pO2 ABG pO2 ABG HCO3 ABG O2 Saturation ABG Base Excess ABG Hemoglobin Oxyhemoglobin Sodium 134 L Potassium 5.1 H Chloride 95.3 L Carbon Dioxide 21 L BUN 85 H Creatinine 6.4 H Glucose 109 H POC Glucose 112 H 110 H Lactic Acid Calcium 5.8 L* Ionized Calcium Phosphorus Magnesium Iron TIBC Ferritin Total Bilirubin Direct Bilirubin AST ALT Alkaline Phosphatase Total Creatine Kinase 5747 H CK-MB (CK-2) Troponin T C-Reactive Protein Total Protein Albumin Triglycerides LDL Cholesterol Direct HDL Cholesterol Free T4 PTH Intact Urine WBC (Auto) Urine Creatinine Salicylates Acetaminophen Crossmatch 03/24/19 03/25/19 03/25/19 23:29 05:00 05:00 WBC RBC Hgb Hct RDW Plt Count Lymph % (Auto) [place] % (Auto) Lymph # Seg Neutrophils % Seg Neuts % (Manual) Lymphocytes % (Manual) Monocytes % (Manual) Nucleated RBC % Seg Neutrophils # Seg Neutrophils # Man Lymphocytes # (Manual) Monocytes # (Manual) PT INR D-Dimer Heparin Anti-Xa Level POC ABG pH ABG pH POC ABG pCO2 POC ABG pO2 ABG pO2 ABG HCO3 ABG O2 Saturation ABG Base Excess ABG Hemoglobin Oxyhemoglobin Sodium 133 L Potassium Chloride 94.0 L Carbon Dioxide 21 L BUN 81 H Creatinine 6.4 H Glucose POC Glucose 109 H Lactic Acid Calcium 5.5 L* Ionized Calcium Phosphorus Magnesium Iron TIBC Ferritin Total Bilirubin Direct Bilirubin AST 80 H ALT Alkaline Phosphatase 202 H Total Creatine Kinase 3589 H CK-MB (CK-2) Troponin T C-Reactive Protein Total Protein 5.3 L Albumin 2.4 L Triglycerides LDL Cholesterol Direct HDL Cholesterol Free T4 PTH Intact 329.9 H Urine WBC (Auto) Urine Creatinine Salicylates Acetaminophen Crossmatch 03/25/19 03/25/19 03/26/19 05:00 06:30 04:30 WBC 23.3 H RBC 3.61 L Hgb 10.2 L Hct 31.2 L RDW Plt Count 57 L Lymph % (Auto) [place] % (Auto) Lymph # Seg Neutrophils % Seg Neuts % (Manual) 92.0 H Lymphocytes % (Manual) 6.0 L Monocytes % (Manual) Nucleated RBC % Seg Neutrophils # Seg Neutrophils # Man 21.4 H Lymphocytes # (Manual) Monocytes # (Manual) PT INR D-Dimer Heparin Anti-Xa Level POC ABG pH ABG pH 7.326 L POC ABG pCO2 POC ABG pO2 ABG pO2 109.5 H 137.4 H ABG HCO3 18.8 L 18.6 L ABG O2 Saturation ABG Base Excess -4.4 L -6.8 L ABG Hemoglobin 10.1 L 9.9 L Oxyhemoglobin Sodium Potassium Chloride Carbon Dioxide BUN Creatinine Glucose POC Glucose Lactic Acid Calcium Ionized Calcium Phosphorus Magnesium Iron TIBC Ferritin Total Bilirubin Direct Bilirubin AST ALT Alkaline Phosphatase Total Creatine Kinase CK-MB (CK-2) Troponin T C-Reactive Protein Total Protein Albumin Triglycerides LDL Cholesterol Direct HDL Cholesterol Free T4 PTH Intact Urine WBC (Auto) Urine Creatinine Salicylates Acetaminophen Crossmatch 03/26/19 03/26/19 03/26/19 23:22 Unknown Unknown WBC 19.5 H RBC 3.44 L Hgb 9.8 L Hct 29.9 L RDW Plt Count 85 L Lymph % (Auto) [place] % (Auto) Lymph # Seg Neutrophils % Seg Neuts % (Manual) 95.0 H Lymphocytes % (Manual) 3.0 L Monocytes % (Manual) Nucleated RBC % Seg Neutrophils # Seg Neutrophils # Man 18.5 H Lymphocytes # (Manual) 0.6 L Monocytes # (Manual) PT INR D-Dimer Heparin Anti-Xa Level POC ABG pH ABG pH POC ABG pCO2 POC ABG pO2 ABG pO2 ABG HCO3 ABG O2 Saturation ABG Base Excess ABG Hemoglobin Oxyhemoglobin Sodium 135 L Potassium 5.2 H D Chloride 92.2 L Carbon Dioxide 18 L BUN 109 H Creatinine 8.5 H Glucose 117 H POC Glucose 69 L Lactic Acid Calcium 4.5 L* D Ionized Calcium Phosphorus Magnesium Iron TIBC Ferritin Total Bilirubin Direct Bilirubin AST ALT Alkaline Phosphatase Total Creatine Kinase 4527 H CK-MB (CK-2) Troponin T C-Reactive Protein Total Protein Albumin Triglycerides LDL Cholesterol Direct HDL Cholesterol Free T4 PTH Intact Urine WBC (Auto) Urine Creatinine Salicylates Acetaminophen Crossmatch 03/27/19 03/27/19 03/27/19 04:30 04:30 09:00 WBC 19.2 H RBC 3.42 L Hgb 9.9 L Hct 30.0 L RDW Plt Count 84 L Lymph % (Auto) [place] % (Auto) Lymph # Seg Neutrophils % Seg Neuts % (Manual) Lymphocytes % (Manual) Monocytes % (Manual) Nucleated RBC % Seg Neutrophils # Seg Neutrophils # Man Lymphocytes # (Manual) Monocytes # (Manual) PT INR D-Dimer Heparin Anti-Xa Level POC ABG pH ABG pH POC ABG pCO2 POC ABG pO2 ABG pO2 ABG HCO3 ABG O2 Saturation ABG Base Excess ABG Hemoglobin Oxyhemoglobin Sodium 135 L Potassium Chloride 93.5 L Carbon Dioxide BUN 84 H Creatinine 7.1 H Glucose POC Glucose Lactic Acid Calcium 5.0 L* Ionized Calcium Phosphorus Magnesium Iron TIBC Ferritin Total Bilirubin Direct Bilirubin AST 78 H ALT Alkaline Phosphatase 135 H Total Creatine Kinase 4677 H CK-MB (CK-2) Troponin T C-Reactive Protein Total Protein 4.8 L Albumin 2.3 L Triglycerides 409 H LDL Cholesterol Direct HDL Cholesterol Free T4 PTH Intact Urine WBC (Auto) Urine Creatinine Salicylates Acetaminophen Crossmatch 03/27/19 03/27/19 03/27/19 12:37 14:15 14:15 WBC RBC Hgb 9.7 L Hct 29.5 L RDW Plt Count 87 L Lymph % (Auto) [place] % (Auto) Lymph # Seg Neutrophils % Seg Neuts % (Manual) Lymphocytes % (Manual) Monocytes % (Manual) Nucleated RBC % Seg Neutrophils # Seg Neutrophils # Man Lymphocytes # (Manual) Monocytes # (Manual) PT 15.9 H INR 1.30 H D-Dimer Heparin Anti-Xa Level POC ABG pH ABG pH POC ABG pCO2 POC ABG pO2 ABG pO2 ABG HCO3 ABG O2 Saturation ABG Base Excess ABG Hemoglobin Oxyhemoglobin Sodium Potassium Chloride Carbon Dioxide BUN Creatinine Glucose POC Glucose 129 H Lactic Acid Calcium Ionized Calcium Phosphorus Magnesium Iron TIBC Ferritin Total Bilirubin Direct Bilirubin AST ALT Alkaline Phosphatase Total Creatine Kinase CK-MB (CK-2) Troponin T C-Reactive Protein Total Protein Albumin Triglycerides LDL Cholesterol Direct HDL Cholesterol Free T4 PTH Intact Urine WBC (Auto) Urine Creatinine Salicylates Acetaminophen Crossmatch 03/27/19 03/27/19 03/27/19 18:00 19:22 19:23 WBC RBC Hgb Hct RDW Plt Count Lymph % (Auto) [place] % (Auto) Lymph # Seg Neutrophils % Seg Neuts % (Manual) Lymphocytes % (Manual) Monocytes % (Manual) Nucleated RBC % Seg Neutrophils # Seg Neutrophils # Man Lymphocytes # (Manual) Monocytes # (Manual) PT INR D-Dimer Heparin Anti-Xa Level < 0.10 L POC ABG pH ABG pH POC ABG pCO2 POC ABG pO2 ABG pO2 ABG HCO3 ABG O2 Saturation ABG Base Excess ABG Hemoglobin Oxyhemoglobin Sodium Potassium Chloride Carbon Dioxide BUN Creatinine Glucose POC Glucose 121 H Lactic Acid Calcium Ionized Calcium Phosphorus Magnesium Iron TIBC Ferritin Total Bilirubin Direct Bilirubin AST ALT Alkaline Phosphatase Total Creatine Kinase 4517 H CK-MB (CK-2) Troponin T C-Reactive Protein Total Protein Albumin Triglycerides LDL Cholesterol Direct HDL Cholesterol Free T4 PTH Intact Urine WBC (Auto) Urine Creatinine Salicylates Acetaminophen Crossmatch 03/27/19 03/27/19 03/28/19 22:10 23:52 03:49 WBC RBC Hgb Hct RDW Plt Count Lymph % (Auto) [place] % (Auto) Lymph # Seg Neutrophils % Seg Neuts % (Manual) Lymphocytes % (Manual) Monocytes % (Manual) Nucleated RBC % Seg Neutrophils # Seg Neutrophils # Man Lymphocytes # (Manual) Monocytes # (Manual) PT INR D-Dimer Heparin Anti-Xa Level POC ABG pH 7.338 L ABG pH POC ABG pCO2 33.1 L POC ABG pO2 ABG pO2 ABG HCO3 ABG O2 Saturation ABG Base Excess ABG Hemoglobin Oxyhemoglobin Sodium Potassium Chloride Carbon Dioxide BUN Creatinine Glucose POC Glucose 113 H 117 H Lactic Acid Calcium Ionized Calcium Phosphorus Magnesium Iron TIBC Ferritin Total Bilirubin Direct Bilirubin AST ALT Alkaline Phosphatase Total Creatine Kinase CK-MB (CK-2) Troponin T C-Reactive Protein Total Protein Albumin Triglycerides LDL Cholesterol Direct HDL Cholesterol Free T4 PTH Intact Urine WBC (Auto) Urine Creatinine Salicylates Acetaminophen Crossmatch 03/28/19 03/28/19 03/28/19 05:13 05:13 06:18 WBC RBC Hgb Hct RDW Plt Count Lymph % (Auto) [place] % (Auto) Lymph # Seg Neutrophils % Seg Neuts % (Manual) Lymphocytes % (Manual) Monocytes % (Manual) Nucleated RBC % Seg Neutrophils # Seg Neutrophils # Man Lymphocytes # (Manual) Monocytes # (Manual) PT INR D-Dimer Heparin Anti-Xa Level 0.23 L POC ABG pH ABG pH POC ABG pCO2 POC ABG pO2 ABG pO2 ABG HCO3 ABG O2 Saturation ABG Base Excess ABG Hemoglobin Oxyhemoglobin Sodium 135 L Potassium 5.5 H D Chloride 95.1 L Carbon Dioxide 16 L D BUN 129 H Creatinine 9.3 H Glucose 158 H POC Glucose 202 H Lactic Acid Calcium 4.0 L* D Ionized Calcium Phosphorus 12.40 H Magnesium Iron TIBC Ferritin Total Bilirubin Direct Bilirubin AST ALT Alkaline Phosphatase Total Creatine Kinase 4266 H CK-MB (CK-2) Troponin T C-Reactive Protein Total Protein Albumin Triglycerides LDL Cholesterol Direct HDL Cholesterol Free T4 PTH Intact Urine WBC (Auto) Urine Creatinine Salicylates Acetaminophen Crossmatch 03/28/19 03/28/19 03/28/19 08:25 10:00 12:00 WBC RBC Hgb 4.9 L* D Hct 15.4 L* D RDW Plt Count Lymph % (Auto) [place] % (Auto) Lymph # Seg Neutrophils % Seg Neuts % (Manual) Lymphocytes % (Manual) Monocytes % (Manual) Nucleated RBC % Seg Neutrophils # Seg Neutrophils # Man Lymphocytes # (Manual) Monocytes # (Manual) PT 17.9 H INR 1.52 H D-Dimer 4845.98 H Heparin Anti-Xa Level POC ABG pH ABG pH POC ABG pCO2 POC ABG pO2 ABG pO2 ABG HCO3 ABG O2 Saturation ABG Base Excess ABG Hemoglobin Oxyhemoglobin Sodium Potassium Chloride Carbon Dioxide BUN Creatinine Glucose POC Glucose Lactic Acid Calcium Ionized Calcium Phosphorus Magnesium Iron TIBC Ferritin Total Bilirubin Direct Bilirubin AST ALT Alkaline Phosphatase Total Creatine Kinase CK-MB (CK-2) Troponin T C-Reactive Protein Total Protein Albumin Triglycerides LDL Cholesterol Direct HDL Cholesterol Free T4 PTH Intact Urine WBC (Auto) Urine Creatinine Salicylates Acetaminophen Crossmatch See Detail 03/28/19 03/28/19 03/28/19 12:28 14:10 17:43 WBC RBC Hgb 5.9 L* Hct 18.3 L* RDW Plt Count Lymph % (Auto) [place] % (Auto) Lymph # Seg Neutrophils % Seg Neuts % (Manual) Lymphocytes % (Manual) Monocytes % (Manual) Nucleated RBC % Seg Neutrophils # Seg Neutrophils # Man Lymphocytes # (Manual) Monocytes # (Manual) PT INR D-Dimer Heparin Anti-Xa Level POC ABG pH ABG pH POC ABG pCO2 POC ABG pO2 ABG pO2 ABG HCO3 ABG O2 Saturation ABG Base Excess ABG Hemoglobin Oxyhemoglobin Sodium Potassium Chloride Carbon Dioxide BUN Creatinine Glucose POC Glucose 153 H 159 H Lactic Acid Calcium Ionized Calcium Phosphorus Magnesium Iron TIBC Ferritin Total Bilirubin Direct Bilirubin AST ALT Alkaline Phosphatase Total Creatine Kinase CK-MB (CK-2) Troponin T C-Reactive Protein Total Protein Albumin Triglycerides LDL Cholesterol Direct HDL Cholesterol Free T4 PTH Intact Urine WBC (Auto) Urine Creatinine Salicylates Acetaminophen Crossmatch 03/28/19 03/28/19 03/28/19 18:10 Unknown 23:59 WBC 24.8 H RBC 3.42 L Hgb 10.2 L D Hct 31.1 L D RDW 15.4 H Plt Count 54 L Lymph % (Auto) [place] % (Auto) Lymph # Seg Neutrophils % Seg Neuts % (Manual) 91.0 H Lymphocytes % (Manual) 8.0 L Monocytes % (Manual) Nucleated RBC % Seg Neutrophils # Seg Neutrophils # Man 22.6 H Lymphocytes # (Manual) Monocytes # (Manual) PT INR D-Dimer Heparin Anti-Xa Level POC ABG pH ABG pH POC ABG pCO2 POC ABG pO2 ABG pO2 ABG HCO3 ABG O2 Saturation ABG Base Excess ABG Hemoglobin Oxyhemoglobin Sodium Potassium 5.7 H Chloride Carbon Dioxide BUN Creatinine Glucose POC Glucose 107 H Lactic Acid Calcium Ionized Calcium Phosphorus Magnesium Iron TIBC Ferritin Total Bilirubin Direct Bilirubin AST ALT Alkaline Phosphatase Total Creatine Kinase CK-MB (CK-2) Troponin T C-Reactive Protein Total Protein Albumin Triglycerides LDL Cholesterol Direct HDL Cholesterol Free T4 PTH Intact Urine WBC (Auto) Urine Creatinine Salicylates Acetaminophen Crossmatch 03/29/19 03/29/19 03/29/19 04:29 05:46 06:22 WBC RBC Hgb 8.6 L Hct 25.7 L RDW Plt Count 93 L Lymph % (Auto) [place] % (Auto) Lymph # Seg Neutrophils % Seg Neuts % (Manual) Lymphocytes % (Manual) Monocytes % (Manual) Nucleated RBC % Seg Neutrophils # Seg Neutrophils # Man Lymphocytes # (Manual) Monocytes # (Manual) PT INR D-Dimer Heparin Anti-Xa Level POC ABG pH ABG pH POC ABG pCO2 32.2 L POC ABG pO2 ABG pO2 ABG HCO3 ABG O2 Saturation ABG Base Excess ABG Hemoglobin Oxyhemoglobin Sodium Potassium Chloride Carbon Dioxide BUN Creatinine Glucose POC Glucose 113 H Lactic Acid Calcium Ionized Calcium Phosphorus Magnesium Iron TIBC Ferritin Total Bilirubin Direct Bilirubin AST ALT Alkaline Phosphatase Total Creatine Kinase CK-MB (CK-2) Troponin T C-Reactive Protein Total Protein Albumin Triglycerides LDL Cholesterol Direct HDL Cholesterol Free T4 PTH Intact Urine WBC (Auto) Urine Creatinine Salicylates Acetaminophen Crossmatch 03/29/19 03/29/19 03/29/19 06:22 06:22 06:22 WBC 23.2 H RBC 2.91 L Hgb 8.6 L Hct 25.8 L RDW Plt Count 91 L Lymph % (Auto) [place] % (Auto) Lymph # Seg Neutrophils % Seg Neuts % (Manual) Lymphocytes % (Manual) Monocytes % (Manual) Nucleated RBC % Seg Neutrophils # Seg Neutrophils # Man Lymphocytes # (Manual) Monocytes # (Manual) PT INR D-Dimer Heparin Anti-Xa Level POC ABG pH ABG pH POC ABG pCO2 POC ABG pO2 ABG pO2 ABG HCO3 ABG O2 Saturation ABG Base Excess ABG Hemoglobin Oxyhemoglobin Sodium 133 L Potassium Chloride 93.8 L Carbon Dioxide 18 L BUN 109 H Creatinine 7.4 H Glucose 124 H POC Glucose Lactic Acid Calcium 4.6 L* Ionized Calcium Phosphorus Magnesium Iron TIBC Ferritin Total Bilirubin Direct Bilirubin AST ALT Alkaline Phosphatase Total Creatine Kinase 3401 H CK-MB (CK-2) Troponin T C-Reactive Protein Total Protein Albumin Triglycerides 309 H LDL Cholesterol Direct HDL Cholesterol Free T4 PTH Intact Urine WBC (Auto) Urine Creatinine Salicylates Acetaminophen Crossmatch 03/29/19 03/29/19 03/29/19 11:48 11:48 18:24 WBC RBC Hgb 7.8 L Hct 23.2 L RDW Plt Count Lymph % (Auto) [place] % (Auto) Lymph # Seg Neutrophils % Seg Neuts % (Manual) Lymphocytes % (Manual) Monocytes % (Manual) Nucleated RBC % Seg Neutrophils # Seg Neutrophils # Man Lymphocytes # (Manual) Monocytes # (Manual) PT 15.3 H INR 1.24 H D-Dimer Heparin Anti-Xa Level POC ABG pH ABG pH POC ABG pCO2 POC ABG pO2 ABG pO2 ABG HCO3 ABG O2 Saturation ABG Base Excess ABG Hemoglobin Oxyhemoglobin Sodium Potassium Chloride Carbon Dioxide BUN Creatinine Glucose POC Glucose 122 H Lactic Acid Calcium Ionized Calcium Phosphorus Magnesium Iron TIBC Ferritin Total Bilirubin Direct Bilirubin AST ALT Alkaline Phosphatase Total Creatine Kinase CK-MB (CK-2) Troponin T C-Reactive Protein Total Protein Albumin Triglycerides LDL Cholesterol Direct HDL Cholesterol Free T4 PTH Intact Urine WBC (Auto) Urine Creatinine Salicylates Acetaminophen Crossmatch 03/30/19 03/30/19 03/30/19 00:40 04:31 05:04 WBC RBC Hgb 7.6 L Hct 23.0 L RDW Plt Count Lymph % (Auto) [place] % (Auto) Lymph # Seg Neutrophils % Seg Neuts % (Manual) Lymphocytes % (Manual) Monocytes % (Manual) Nucleated RBC % Seg Neutrophils # Seg Neutrophils # Man Lymphocytes # (Manual) Monocytes # (Manual) PT INR D-Dimer Heparin Anti-Xa Level POC ABG pH 7.346 L ABG pH POC ABG pCO2 POC ABG pO2 62 L ABG pO2 ABG HCO3 ABG O2 Saturation ABG Base Excess ABG Hemoglobin Oxyhemoglobin Sodium Potassium Chloride Carbon Dioxide BUN 79 H Creatinine 6.4 H Glucose POC Glucose Lactic Acid Calcium 6.1 L D Ionized Calcium Phosphorus Magnesium Iron TIBC Ferritin Total Bilirubin Direct Bilirubin AST ALT Alkaline Phosphatase Total Creatine Kinase CK-MB (CK-2) Troponin T C-Reactive Protein Total Protein Albumin Triglycerides LDL Cholesterol Direct HDL Cholesterol Free T4 PTH Intact Urine WBC (Auto) Urine Creatinine Salicylates Acetaminophen Crossmatch 03/30/19 03/30/19 03/30/19 08:45 12:09 22:43 WBC 14.3 H RBC 2.33 L Hgb 7.0 L 7.4 L Hct 21.0 L 22.3 L RDW 15.6 H Plt Count 135 L Lymph % (Auto) [place] % (Auto) Lymph # Seg Neutrophils % Seg Neuts % (Manual) Lymphocytes % (Manual) Monocytes % (Manual) Nucleated RBC % Seg Neutrophils # Seg Neutrophils # Man Lymphocytes # (Manual) Monocytes # (Manual) PT INR D-Dimer Heparin Anti-Xa Level POC ABG pH ABG pH POC ABG pCO2 POC ABG pO2 ABG pO2 ABG HCO3 ABG O2 Saturation ABG Base Excess ABG Hemoglobin Oxyhemoglobin Sodium Potassium Chloride Carbon Dioxide BUN Creatinine Glucose POC Glucose Lactic Acid Calcium Ionized Calcium 3.7 L Phosphorus Magnesium Iron TIBC Ferritin Total Bilirubin Direct Bilirubin AST ALT Alkaline Phosphatase Total Creatine Kinase CK-MB (CK-2) Troponin T C-Reactive Protein Total Protein Albumin Triglycerides LDL Cholesterol Direct HDL Cholesterol Free T4 PTH Intact Urine WBC (Auto) Urine Creatinine Salicylates Acetaminophen Crossmatch 03/30/19 03/30/19 03/31/19 23:38 Unknown 04:44 WBC 11.5 H RBC 2.40 L Hgb 7.3 L Hct 21.9 L RDW 15.4 H Plt Count Lymph % (Auto) 10.6 L [place] % (Auto) Lymph # Seg Neutrophils % 81.7 H Seg Neuts % (Manual) Lymphocytes % (Manual) Monocytes % (Manual) Nucleated RBC % Seg Neutrophils # 9.4 H Seg Neutrophils # Man Lymphocytes # (Manual) Monocytes # (Manual) PT INR D-Dimer Heparin Anti-Xa Level POC ABG pH ABG pH POC ABG pCO2 POC ABG pO2 ABG pO2 ABG HCO3 ABG O2 Saturation ABG Base Excess ABG Hemoglobin Oxyhemoglobin Sodium Potassium Chloride Carbon Dioxide BUN Creatinine Glucose POC Glucose 155 H Lactic Acid Calcium Ionized Calcium Phosphorus Magnesium Iron TIBC Ferritin Total Bilirubin Direct Bilirubin 0.4 H AST 63 H ALT Alkaline Phosphatase Total Creatine Kinase CK-MB (CK-2) Troponin T C-Reactive Protein Total Protein 4.9 L Albumin 2.2 L Triglycerides LDL Cholesterol Direct HDL Cholesterol Free T4 PTH Intact Urine WBC (Auto) Urine Creatinine Salicylates Acetaminophen Crossmatch 03/31/19 03/31/19 03/31/19 04:44 05:44 08:20 WBC RBC Hgb Hct RDW Plt Count Lymph % (Auto) [place] % (Auto) Lymph # Seg Neutrophils % Seg Neuts % (Manual) Lymphocytes % (Manual) Monocytes % (Manual) Nucleated RBC % Seg Neutrophils # Seg Neutrophils # Man Lymphocytes # (Manual) Monocytes # (Manual) PT INR D-Dimer Heparin Anti-Xa Level POC ABG pH ABG pH POC ABG pCO2 53.5 H POC ABG pO2 62 L ABG pO2 ABG HCO3 ABG O2 Saturation ABG Base Excess ABG Hemoglobin Oxyhemoglobin Sodium 135 L Potassium Chloride 96.7 L Carbon Dioxide 19 L BUN 94 H Creatinine 7.8 H Glucose POC Glucose Lactic Acid Calcium 5.3 L* Ionized Calcium Phosphorus 8.20 H Magnesium Iron TIBC Ferritin Total Bilirubin Direct Bilirubin 0.4 H AST 60 H ALT Alkaline Phosphatase Total Creatine Kinase CK-MB (CK-2) Troponin T C-Reactive Protein Total Protein 4.8 L Albumin 2.1 L Triglycerides LDL Cholesterol Direct HDL Cholesterol Free T4 PTH Intact Urine WBC (Auto) Urine Creatinine Salicylates Acetaminophen Crossmatch 03/31/19 04/01/19 04/01/19 22:14 04:27 04:27 WBC RBC 2.60 L Hgb 8.0 L Hct 24.1 L RDW 15.7 H Plt Count Lymph % (Auto) 7.9 L [place] % (Auto) Lymph # 0.7 L Seg Neutrophils % 83.6 H Seg Neuts % (Manual) Lymphocytes % (Manual) Monocytes % (Manual) Nucleated RBC % Seg Neutrophils # Seg Neutrophils # Man Lymphocytes # (Manual) Monocytes # (Manual) PT INR D-Dimer Heparin Anti-Xa Level POC ABG pH 7.286 L ABG pH POC ABG pCO2 54.7 H POC ABG pO2 179 H ABG pO2 ABG HCO3 ABG O2 Saturation ABG Base Excess ABG Hemoglobin Oxyhemoglobin Sodium Potassium Chloride Carbon Dioxide BUN 68 H Creatinine 6.6 H Glucose POC Glucose Lactic Acid Calcium 6.5 L D Ionized Calcium Phosphorus 7.30 H Magnesium Iron TIBC Ferritin Total Bilirubin Direct Bilirubin AST ALT Alkaline Phosphatase Total Creatine Kinase 1652 H CK-MB (CK-2) Troponin T C-Reactive Protein Total Protein Albumin Triglycerides LDL Cholesterol Direct HDL Cholesterol Free T4 PTH Intact Urine WBC (Auto) Urine Creatinine Salicylates Acetaminophen Crossmatch 04/01/19 04/01/19 04/01/19 05:14 05:37 18:37 WBC RBC Hgb Hct RDW Plt Count Lymph % (Auto) [place] % (Auto) Lymph # Seg Neutrophils % Seg Neuts % (Manual) Lymphocytes % (Manual) Monocytes % (Manual) Nucleated RBC % Seg Neutrophils # Seg Neutrophils # Man Lymphocytes # (Manual) Monocytes # (Manual) PT INR D-Dimer Heparin Anti-Xa Level POC ABG pH 7.283 L ABG pH POC ABG pCO2 53.4 H POC ABG pO2 241 H ABG pO2 ABG HCO3 ABG O2 Saturation ABG Base Excess ABG Hemoglobin Oxyhemoglobin Sodium Potassium Chloride Carbon Dioxide BUN Creatinine Glucose POC Glucose 111 H 119 H Lactic Acid Calcium Ionized Calcium Phosphorus Magnesium Iron TIBC Ferritin Total Bilirubin Direct Bilirubin AST ALT Alkaline Phosphatase Total Creatine Kinase CK-MB (CK-2) Troponin T C-Reactive Protein Total Protein Albumin Triglycerides LDL Cholesterol Direct HDL Cholesterol Free T4 PTH Intact Urine WBC (Auto) Urine Creatinine Salicylates Acetaminophen Crossmatch 04/01/19 04/02/19 04/02/19 21:28 04:40 05:03 WBC RBC 2.36 L Hgb 7.2 L Hct 21.9 L RDW 16.0 H Plt Count Lymph % (Auto) 10.8 L [place] % (Auto) Lymph # 0.8 L Seg Neutrophils % 80.3 H Seg Neuts % (Manual) Lymphocytes % (Manual) Monocytes % (Manual) Nucleated RBC % Seg Neutrophils # Seg Neutrophils # Man Lymphocytes # (Manual) Monocytes # (Manual) PT INR D-Dimer Heparin Anti-Xa Level POC ABG pH 7.299 L 7.300 L ABG pH POC ABG pCO2 48.2 H 45.2 H POC ABG pO2 133 H 107 H ABG pO2 ABG HCO3 ABG O2 Saturation ABG Base Excess ABG Hemoglobin Oxyhemoglobin Sodium Potassium Chloride Carbon Dioxide BUN Creatinine Glucose POC Glucose Lactic Acid Calcium Ionized Calcium Phosphorus Magnesium Iron TIBC Ferritin Total Bilirubin Direct Bilirubin AST ALT Alkaline Phosphatase Total Creatine Kinase CK-MB (CK-2) Troponin T C-Reactive Protein Total Protein Albumin Triglycerides LDL Cholesterol Direct HDL Cholesterol Free T4 PTH Intact Urine WBC (Auto) Urine Creatinine Salicylates Acetaminophen Crossmatch 04/02/19 04/02/19 04/02/19 05:03 05:03 12:15 WBC RBC Hgb 7.4 L Hct 22.6 L RDW Plt Count Lymph % (Auto) [place] % (Auto) Lymph # Seg Neutrophils % Seg Neuts % (Manual) Lymphocytes % (Manual) Monocytes % (Manual) Nucleated RBC % Seg Neutrophils # Seg Neutrophils # Man Lymphocytes # (Manual) Monocytes # (Manual) PT INR D-Dimer Heparin Anti-Xa Level POC ABG pH ABG pH POC ABG pCO2 POC ABG pO2 ABG pO2 ABG HCO3 ABG O2 Saturation ABG Base Excess ABG Hemoglobin Oxyhemoglobin Sodium 136 L Potassium Chloride 97.8 L Carbon Dioxide 18 L BUN 82 H Creatinine 8.2 H Glucose POC Glucose Lactic Acid Calcium 6.7 L Ionized Calcium Phosphorus 7.50 H Magnesium Iron 26 L TIBC 138 L Ferritin 607.0 H Total Bilirubin Direct Bilirubin AST ALT Alkaline Phosphatase Total Creatine Kinase CK-MB (CK-2) Troponin T C-Reactive Protein Total Protein Albumin Triglycerides LDL Cholesterol Direct HDL Cholesterol Free T4 PTH Intact Urine WBC (Auto) Urine Creatinine Salicylates Acetaminophen Crossmatch 04/02/19 04/02/19 04/03/19 16:34 17:14 04:18 WBC RBC Hgb Hct RDW Plt Count Lymph % (Auto) [place] % (Auto) Lymph # Seg Neutrophils % Seg Neuts % (Manual) Lymphocytes % (Manual) Monocytes % (Manual) Nucleated RBC % Seg Neutrophils # Seg Neutrophils # Man Lymphocytes # (Manual) Monocytes # (Manual) PT INR D-Dimer Heparin Anti-Xa Level POC ABG pH ABG pH POC ABG pCO2 POC ABG pO2 146 H ABG pO2 ABG HCO3 ABG O2 Saturation ABG Base Excess ABG Hemoglobin Oxyhemoglobin Sodium Potassium Chloride Carbon Dioxide BUN Creatinine Glucose POC Glucose 108 H Lactic Acid Calcium Ionized Calcium Phosphorus Magnesium Iron TIBC Ferritin Total Bilirubin Direct Bilirubin AST ALT Alkaline Phosphatase Total Creatine Kinase CK-MB (CK-2) Troponin T C-Reactive Protein Total Protein Albumin Triglycerides LDL Cholesterol Direct HDL Cholesterol Free T4 PTH Intact Urine WBC (Auto) Urine Creatinine Salicylates Acetaminophen Crossmatch See Detail 04/03/19 04/03/19 04/03/19 04:25 08:30 18:24 WBC RBC 2.40 L Hgb 7.3 L Hct 21.9 L RDW Plt Count Lymph % (Auto) [place] % (Auto) 7.7 H Lymph # 0.9 L Seg Neutrophils % 74.6 H Seg Neuts % (Manual) Lymphocytes % (Manual) Monocytes % (Manual) Nucleated RBC % Seg Neutrophils # Seg Neutrophils # Man Lymphocytes # (Manual) Monocytes # (Manual) PT INR D-Dimer Heparin Anti-Xa Level POC ABG pH ABG pH POC ABG pCO2 POC ABG pO2 ABG pO2 ABG HCO3 ABG O2 Saturation ABG Base Excess ABG Hemoglobin Oxyhemoglobin Sodium 136 L Potassium Chloride 97.0 L Carbon Dioxide BUN 58 H Creatinine 7.3 H Glucose POC Glucose 106 H Lactic Acid Calcium 7.5 L Ionized Calcium Phosphorus 5.80 H D Magnesium Iron TIBC Ferritin Total Bilirubin Direct Bilirubin AST ALT Alkaline Phosphatase Total Creatine Kinase CK-MB (CK-2) Troponin T C-Reactive Protein Total Protein Albumin Triglycerides LDL Cholesterol Direct HDL Cholesterol Free T4 PTH Intact Urine WBC (Auto) Urine Creatinine Salicylates Acetaminophen Crossmatch 04/03/19 04/04/19 04/04/19 23:43 04:47 04:47 WBC RBC 2.72 L Hgb 8.3 L Hct 24.7 L RDW 15.6 H Plt Count Lymph % (Auto) [place] % (Auto) 10.1 H Lymph # 0.8 L Seg Neutrophils % 71.4 H Seg Neuts % (Manual) Lymphocytes % (Manual) Monocytes % (Manual) Nucleated RBC % Seg Neutrophils # Seg Neutrophils # Man Lymphocytes # (Manual) Monocytes # (Manual) PT INR D-Dimer Heparin Anti-Xa Level POC ABG pH ABG pH POC ABG pCO2 POC ABG pO2 ABG pO2 123.8 H ABG HCO3 ABG O2 Saturation ABG Base Excess -3.0 L ABG Hemoglobin 7.9 L Oxyhemoglobin Sodium 134 L Potassium Chloride 97.9 L Carbon Dioxide BUN 64 H Creatinine 8.1 H Glucose POC Glucose Lactic Acid Calcium 7.2 L Ionized Calcium Phosphorus Magnesium Iron TIBC Ferritin Total Bilirubin Direct Bilirubin AST ALT Alkaline Phosphatase Total Creatine Kinase CK-MB (CK-2) Troponin T C-Reactive Protein Total Protein Albumin Triglycerides LDL Cholesterol Direct HDL Cholesterol Free T4 PTH Intact Urine WBC (Auto) Urine Creatinine Salicylates Acetaminophen Crossmatch 04/04/19 04/04/19 04/04/19 06:07 13:40 18:18 WBC RBC Hgb Hct RDW Plt Count Lymph % (Auto) [place] % (Auto) Lymph # Seg Neutrophils % Seg Neuts % (Manual) Lymphocytes % (Manual) Monocytes % (Manual) Nucleated RBC % Seg Neutrophils # Seg Neutrophils # Man Lymphocytes # (Manual) Monocytes # (Manual) PT INR D-Dimer Heparin Anti-Xa Level POC ABG pH ABG pH POC ABG pCO2 POC ABG pO2 ABG pO2 95.9 H ABG HCO3 ABG O2 Saturation ABG Base Excess -3.0 L ABG Hemoglobin 8.5 L Oxyhemoglobin Sodium Potassium Chloride Carbon Dioxide BUN Creatinine Glucose POC Glucose 107 H 107 H Lactic Acid Calcium Ionized Calcium Phosphorus Magnesium Iron TIBC Ferritin Total Bilirubin Direct Bilirubin AST ALT Alkaline Phosphatase Total Creatine Kinase CK-MB (CK-2) Troponin T C-Reactive Protein Total Protein Albumin Triglycerides LDL Cholesterol Direct HDL Cholesterol Free T4 PTH Intact Urine WBC (Auto) Urine Creatinine Salicylates Acetaminophen Crossmatch 04/04/19 04/05/19 04/05/19 21:22 04:09 04:09 WBC RBC 2.76 L Hgb 8.4 L Hct 25.4 L RDW 15.8 H Plt Count 133 L Lymph % (Auto) [place] % (Auto) 9.6 H Lymph # 0.7 L Seg Neutrophils % 72.6 H Seg Neuts % (Manual) Lymphocytes % (Manual) Monocytes % (Manual) Nucleated RBC % Seg Neutrophils # Seg Neutrophils # Man Lymphocytes # (Manual) Monocytes # (Manual) PT INR D-Dimer Heparin Anti-Xa Level POC ABG pH ABG pH POC ABG pCO2 47.2 H POC ABG pO2 137 H ABG pO2 ABG HCO3 ABG O2 Saturation ABG Base Excess ABG Hemoglobin Oxyhemoglobin Sodium 136 L Potassium Chloride Carbon Dioxide BUN 46 H Creatinine 6.7 H Glucose POC Glucose Lactic Acid Calcium 7.7 L Ionized Calcium Phosphorus Magnesium Iron TIBC Ferritin Total Bilirubin Direct Bilirubin AST ALT Alkaline Phosphatase Total Creatine Kinase CK-MB (CK-2) Troponin T C-Reactive Protein Total Protein Albumin Triglycerides LDL Cholesterol Direct HDL Cholesterol Free T4 PTH Intact Urine WBC (Auto) Urine Creatinine Salicylates Acetaminophen Crossmatch 04/05/19 04/05/19 05:28 06:14 WBC RBC Hgb Hct RDW Plt Count Lymph % (Auto) [place] % (Auto) Lymph # Seg Neutrophils % Seg Neuts % (Manual) Lymphocytes % (Manual) Monocytes % (Manual) Nucleated RBC % Seg Neutrophils # Seg Neutrophils # Man Lymphocytes # (Manual) Monocytes # (Manual) PT INR D-Dimer Heparin Anti-Xa Level POC ABG pH ABG pH POC ABG pCO2 POC ABG pO2 67 L ABG pO2 ABG HCO3 ABG O2 Saturation ABG Base Excess ABG Hemoglobin Oxyhemoglobin Sodium Potassium Chloride Carbon Dioxide BUN Creatinine Glucose POC Glucose 108 H Lactic Acid Calcium Ionized Calcium Phosphorus Magnesium Iron TIBC Ferritin Total Bilirubin Direct Bilirubin AST ALT Alkaline Phosphatase Total Creatine Kinase CK-MB (CK-2) Troponin T C-Reactive Protein Total Protein Albumin Triglycerides LDL Cholesterol Direct HDL Cholesterol Free T4 PTH Intact Urine WBC (Auto) Urine Creatinine Salicylates Acetaminophen Crossmatch
[2019-04-05 17:06] LABS: Amorphous Crystals,Urine 1+; Bilirubin,Urine NEG (Negative); Blood,Urine LG (Negative); Color,Urine Amber (Yellow); Urobilinogen,Urine < 2.0 mg/dL (<2.0)
[2019-04-05 17:07] LABS: RBC,Urine > 182.0 /HPF (0.0-6.0)
--- NOTE | 2019-04-05 17:37 | Progress Note ---
Assessment and Plan Assessment and plan: Patient is a 43-year-old man with history of GERD, obesity and mental illness who presented to [facility] ED on 03/16/2019 with altered mental status. He is visiting from [place] and was brought in by his friend. When he came to the ER, he was unable to speak or follow commands, in the ER he was found to have SVT with heart rate in the 250s. The patient was shocks and medicated. He became more confused and had trouble protecting his airway; therefore, he was then intubated. During this hospital coarse, he was found to have sepsis with septic shock, rhabdomyolysis, RUBEN, and multisystem organ failure. According to the patient's clinical findings, the patient likely has toxic metabolic encephalopathy. Acute hypoxic respiratory failure on mechanical ventilator greater than 96 hours , suspect ARDS: pulmonologis is following, trying to wean P.Afib/flutter with RVR: treated with IV Amiodorone, Cardiology is following Torsade sparkle points/ventricular tachycardia Acute combine heart failure, EF 40%: Cardiology input noted, continue amiodarone drip, no beta-adela or CHRISTIN given hypotension, will need ischemic cardiac stratification if he improves. Acute GI bleed, upper GI bleed due to PUD, EGD on 03/30 shows multiple ulcers, and large ulcer was rx with epi, unfortunately patient had melena again on 04/02, resolved, Protonix iv bid now Acute blood loss anemia, Transfused multiple units of PRBC, now improved, transfuse another unit as patient is actively bleeding Right IJ nonocclusive thrombosis, Discussed with vascular surgery, patient unable to tolerate anticoagulation due to thrombocytopenia and GI bleeding. Will monitor Septic shock with multiorgan failure, off pressors >48 hours: down to Levophed, continue to wean vasopressors Aspiration pneumonia: completed ABX Acute kidney injury, rhabdomyolysis, hyperkalemia due to ATN: Continue dialysis per nephrology Acute Metabolic Encephalopathy Severe metabolic acidosis, improved: monitoring BMP closely Rhabdomyolysis, CK trending down Thrombocytopenia, Likely due to sepsis, continue to monitor ?Right axillary edema: no abscess, US no collection seen DVT prophylaxis, no anticoagulation given multiple episodes of GI bleed and thrombocytopenia. SCDs Febrile: ID to evaluate, get blood cultures, ua poor prognosis DNR CCT 32 minutes History Interval history: Patient was seen and examined. Follow-up on current diagnosis of resp failure. No overnight events reported to me. Imaging, nursing note, chart, labs and old chart reviewed. Patient intubated and sedated. Hospitalist Physical - Physical exam Narrative exam: Gen: critically ill, bmi 47, intubated and sedated HEENT: NCAT, EOMI, PERRL, OP eTT and NGt in place Neck: supple, no adenopathy, no thyromegaly, CVS/Heart: irregular irregular, normal S1S2, pulses present bilaterally Chest/Lungs: Symmetrical chest expansion, good air entry bilaterally GI/Abdomen: soft, NTND, good bowel sounds, no guarding or rebound /Bladder: no suprapubic tenderness, no CVA or paraspinal tenderness Extermity/Skin: dependent edema MSK: sedated Neuro: sedated Psych: sedated - Constitutional Vitals: Temp Pulse Resp BP Pulse Ox 103 F H 145 H 30 H 134/92 100 04/05/19 12:00 04/05/19 16:55 04/05/19 15:47 04/05/19 16:55 04/05/19 16:55 General appearance: Present: other (intubated) Results - Labs CBC & Chem 7: 04/05/19 04:09 04/05/19 04:09 Labs: Laboratory Last Values WBC 5.0 K/mm3 (4.5-11.0) 04/05/19 04:09 RBC 2.76 M/mm3 (3.65-5.03) L 04/05/19 04:09 Hgb 8.4 gm/dl (11.8-15.2) L 04/05/19 04:09 Hct 25.4 % (35.5-45.6) L 04/05/19 04:09 MCV 92 fl (84-94) 04/05/19 04:09 MCH 31 pg (28-32) 04/05/19 04:09 MCHC 33 % (32-34) 04/05/19 04:09 RDW 15.8 % (13.2-15.2) H 04/05/19 04:09 Plt Count 133 K/mm3 (140-440) L 04/05/19 04:09 Lymph % (Auto) 14.8 % (13.4-35.0) 04/05/19 04:09 Mcleod % (Auto) 9.6 % (0.0-7.3) H 04/05/19 04:09 Eos % (Auto) 2.5 % (0.0-4.3) 04/05/19 04:09 Baso % (Auto) 0.5 % (0.0-1.8) 04/05/19 04:09 Lymph # 0.7 K/mm3 (1.2-5.4) L 04/05/19 04:09 Mcleod # 0.5 K/mm3 (0.0-0.8) 04/05/19 04:09 Eos # 0.1 K/mm3 (0.0-0.4) 04/05/19 04:09 Baso # 0.0 K/mm3 (0.0-0.1) 04/05/19 04:09 Add Manual Diff Complete 03/28/19 18:10 Total Counted 100 03/28/19 18:10 Seg Neutrophils % 72.6 % (40.0-70.0) H 04/05/19 04:09 Seg Neuts % (Manual) 91.0 % (40.0-70.0) H 03/28/19 18:10 Band Neutrophils % 0 % 03/28/19 18:10 Lymphocytes % (Manual) 8.0 % (13.4-35.0) L 03/28/19 18:10 Reactive Lymphs % (Man) 0 % 03/28/19 18:10 Monocytes % (Manual) 1.0 % (0.0-7.3) 03/28/19 18:10 Eosinophils % (Manual) 0 % (0.0-4.3) 03/28/19 18:10 Basophils % (Manual) 0 % (0.0-1.8) 03/28/19 18:10 Metamyelocytes % 0 % 03/28/19 18:10 Myelocytes % 0 % 03/28/19 18:10 Promyelocytes % 0 % 03/28/19 18:10 Blast Cells % 0 % 03/28/19 18:10 Nucleated RBC % Not Reportable 03/28/19 18:10 Seg Neutrophils # 3.6 K/mm3 (1.8-7.7) 04/05/19 04:09 Seg Neutrophils # Man 22.6 K/mm3 (1.8-7.7) H 03/28/19 18:10 Band Neutrophils # 0.0 K/mm3 03/28/19 18:10 Lymphocytes # (Manual) 2.0 K/mm3 (1.2-5.4) 03/28/19 18:10 Abs React Lymphs (Man) 0.0 K/mm3 03/28/19 18:10 Monocytes # (Manual) 0.2 K/mm3 (0.0-0.8) 03/28/19 18:10 Eosinophils # (Manual) 0.0 K/mm3 (0.0-0.4) 03/28/19 18:10 Basophils # (Manual) 0.0 K/mm3 (0.0-0.1) 03/28/19 18:10 Metamyelocytes # 0.0 K/mm3 03/28/19 18:10 Myelocytes # 0.0 K/mm3 03/28/19 18:10 Promyelocytes # 0.0 K/mm3 03/28/19 18:10 Blast Cells # 0.0 K/mm3 03/28/19 18:10 WBC Morphology Not Reportable 03/28/19 18:10 Hypersegmented Neuts Not Reportable 03/28/19 18:10 Hyposegmented Neuts Not Reportable 03/28/19 18:10 Hypogranular Neuts Not Reportable 03/28/19 18:10 Smudge Cells Not Reportable 03/28/19 18:10 Toxic Granulation Not Reportable 03/28/19 18:10 Toxic Vacuolation Not Reportable 03/28/19 18:10 Dohle Bodies Not Reportable 03/28/19 18:10 Pelger-Huet Anomaly Not Reportable 03/28/19 18:10 Joyce Rods Not Reportable 03/28/19 18:10 Platelet Estimate Appears decreased 03/28/19 18:10 Clumped Platelets Not Reportable 03/28/19 18:10 Plt Clumps, EDTA Not Reportable 03/28/19 18:10 Large Platelets Not Reportable 03/28/19 18:10 Giant Platelets Not Reportable 03/28/19 18:10 Platelet Satelliting Not Reportable 03/28/19 18:10 Plt Morphology Comment Not Reportable 03/28/19 18:10 RBC Morphology Not Reportable 03/28/19 18:10 Dimorphic RBCs Not Reportable 03/28/19 18:10 Polychromasia Not Reportable 03/28/19 18:10 Hypochromasia Not Reportable 03/28/19 18:10 Poikilocytosis Not Reportable 03/28/19 18:10 Anisocytosis Few 03/28/19 18:10 Microcytosis Not Reportable 03/28/19 18:10 Macrocytosis Not Reportable 03/28/19 18:10 Spherocytes Not Reportable 03/28/19 18:10 Pappenheimer Bodies Not Reportable 03/28/19 18:10 Sickle Cells Not Reportable 03/28/19 18:10 Target Cells Not Reportable 03/28/19 18:10 Tear Drop Cells Not Reportable 03/28/19 18:10 Ovalocytes Not Reportable 03/28/19 18:10 Stomatocytes Few 03/26/19 Unknown Helmet Cells Not Reportable 03/28/19 18:10 Shrestha[facility] Bodies Not Reportable 03/28/19 18:10 [place] Rings Not Reportable 03/28/19 18:10 Glennie Cells Not Reportable 03/28/19 18:10 Bite Cells Not Reportable 03/28/19 18:10 Crenated Cell Not Reportable 03/28/19 18:10 Elliptocytes Not Reportable 03/28/19 18:10 Acanthocytes (Spur) Not Reportable 03/28/19 18:10 Rouleaux Not Reportable 03/28/19 18:10 Hemoglobin C Crystals Not Reportable 03/28/19 18:10 Schistocytes Not Reportable 03/28/19 18:10 Malaria parasites Not Reportable 03/28/19 18:10 Phil Bodies Not Reportable 03/28/19 18:10 Hem Pathologist Commnt No 03/28/19 18:10 PT 15.3 Sec. (12.2-14.9) H 03/29/19 11:48 INR 1.24 (0.87-1.13) H 03/29/19 11:48 APTT 26.6 Sec. (24.2-36.6) 03/28/19 12:00 Fibrinogen 226 mg/dl (211-480) 03/28/19 12:00 D-Dimer 4845.98 ng/mlDDU (0-234) H 03/28/19 12:00 Heparin Anti-Xa Level 0.23 U.I./ml (0.3-0.7) L 03/28/19 05:13 POC ABG pH 7.423 (7.35-7.45) 04/05/19 12:06 ABG pH 7.397 pH Units (7.350-7.450) 04/04/19 13:40 POC ABG pCO2 39.1 (35-45) 04/05/19 12:06 ABG pCO2 35.6 mm Hg 04/04/19 13:40 POC ABG pO2 98 (80-105) 04/05/19 12:06 ABG pO2 95.9 mm Hg (80.0-90.0) H 04/04/19 13:40 POC ABG HCO3 25.5 (22-26 mml/L) 04/05/19 12:06 ABG HCO3 21.4 mmol/L (20.0-26.0) 04/04/19 13:40 POC ABG Total CO2 27 (23-27mmol/L) 04/05/19 12:06 POC ABG O2 Sat 98 04/05/19 12:06 ABG O2 Saturation 97.5 % (95.0-99.0) 04/04/19 13:40 ABG O2 Content 11.5 (0.0-44) 04/04/19 13:40 POC ABG Base Excess 1 ((-2) - (+3)mmol/L) 04/05/19 12:06 ABG Base Excess -3.0 mmol/L (-2.0-3.0) L 04/04/19 13:40 ABG Hemoglobin 8.5 gm/dl (14.0-18.0) L 04/04/19 13:40 ABG Carboxyhemoglobin 1.6 % (0.0-5.0) 04/04/19 13:40 ABG Methemoglobin 0.6 % (0.0-1.5) 04/04/19 13:40 Oxyhemoglobin 95.3 % (95.0-99.0) 04/04/19 13:40 FiO2 40 % 04/05/19 12:06 Sodium 136 mmol/L (137-145) L 04/05/19 04:09 Potassium 4.0 mmol/L (3.6-5.0) 04/05/19 04:09 Chloride 99.2 mmol/L (98-107) 04/05/19 04:09 Carbon Dioxide 25 mmol/L (22-30) 04/05/19 04:09 Anion Gap 16 mmol/L 04/05/19 04:09 BUN 46 mg/dL (9-20) H 04/05/19 04:09 Creatinine 6.7 mg/dL (0.8-1.5) H 04/05/19 04:09 Estimated GFR 11 ml/min 04/05/19 04:09 BUN/Creatinine Ratio 7 % 04/05/19 04:09 Glucose 90 mg/dL (75-100) 04/05/19 04:09 POC Glucose 102 (70-105) 04/05/19 12:05 Lactic Acid 1.90 mmol/L (0.7-2.0) 03/21/19 21:31 Calcium 7.7 mg/dL (8.4-10.2) L 04/05/19 04:09 Ionized Calcium 3.7 mg/dL (4.8-5.6) L 03/30/19 12:09 Phosphorus 5.80 mg/dL (2.5-4.5) H D 04/03/19 08:30 Magnesium 1.90 mg/dL (1.7-2.3) 03/31/19 15:07 Iron 26 ug/dL (49-181) L 04/02/19 05:03 TIBC 138 mcg/dL (250-450) L 04/02/19 05:03 Ferritin 607.0 ng/mL (13.0-400.0) H 04/02/19 05:03 Total Bilirubin 0.50 mg/dL (0.1-1.2) 03/31/19 08:20 Direct Bilirubin 0.4 mg/dL (0-0.2) H 03/31/19 08:20 Indirect Bilirubin 0.1 mg/dL 03/31/19 08:20 AST 60 units/L (5-40) H 03/31/19 08:20 ALT 30 units/L (7-56) 03/31/19 08:20 Alkaline Phosphatase 59 units/L (35-129) 03/31/19 08:20 Total Creatine Kinase 164 units/L (55-170) 04/05/19 04:09 CK-MB (CK-2) 54.3 ng/mL (0.0-4.0) H 03/17/19 07:16 CK-MB (CK-2) Rel Index 0.0 (0-4) 03/17/19 07:16 Troponin T 0.058 ng/mL (0.00-0.029) H 03/17/19 07:16 C-Reactive Protein 13.30 mg/dL (0.00-1.30) H 03/20/19 14:45 Total Protein 4.8 g/dL (6.3-8.2) L 03/31/19 08:20 Albumin 2.1 g/dL (3.9-5) L 03/31/19 08:20 Albumin/Globulin Ratio 0.8 % 03/31/19 08:20 Triglycerides 309 mg/dL (2-149) H 03/29/19 06:22 Cholesterol 88 mg/dL (50-199) 03/16/19 22:32 LDL Cholesterol Direct 10 mg/dL (50-130) L 03/16/19 22:32 HDL Cholesterol 7 mg/dL (40-59) L 03/16/19 22:32 Cholesterol/HDL Ratio 12.57 % 03/16/19 22:32 Vitamin B12 903.0 pg/mL (211-911) 04/02/19 05:03 Folate 8.05 ng/mL (7.3-26.0) 04/02/19 05:03 Procalcitonin 25.42 ng/mL (<0.15) 03/27/19 19:21 TSH 2.200 mlU/mL (0.270-4.200) 03/16/19 17:05 Free T4 0.72 ng/dL (0.76-1.46) L 03/16/19 17:05 PTH Intact 329.9 pg/mL (15-65) H 03/25/19 05:00 Urine Color Kathy (Yellow) 04/05/19 16:50 Urine Turbidity Cloudy (Clear) 04/05/19 16:50 Urine pH 5.0 (5.0-7.0) 04/05/19 16:50 Ur Specific [place] 1.018 (1.003-1.030) 04/05/19 16:50 Urine Protein 100 mg/dl mg/dL (Negative) 04/05/19 16:50 Urine Glucose (UA) Neg mg/dL (Negative) 04/05/19 16:50 Urine Ketones Neg mg/dL (Negative) 04/05/19 16:50 Urine Blood Lg (Negative) 04/05/19 16:50 Urine Nitrite Neg (Negative) 04/05/19 16:50 Urine Bilirubin Neg (Negative) 04/05/19 16:50 Urine Urobilinogen < 2.0 mg/dL (<2.0) 04/05/19 16:50 Ur Leukocyte Esterase Tr (Negative) 04/05/19 16:50 Urine WBC (Auto) 40.0 /HPF (0.0-6.0) H 04/05/19 16:50 Urine RBC (Auto) > 182.0 /HPF (0.0-6.0) 04/05/19 16:50 U Epithel Cells (Auto) < 1.0 /HPF (0-13.0) 03/17/19 16:05 Amorphous Crystals 1+ 04/05/19 16:50 Urine Mucus Few /HPF 03/17/19 16:05 Urine Sperm 2+ /HPF (ENGINE RESEARCH ENGINEER) 03/17/19 16:05 Urine Eosinophils None seen (None Seen) 03/17/19 16:05 Urine Creatinine 106.6 mg/dL (0.1-20.0) H 03/17/19 16:05 Urine Sodium 95 mmol/L 03/17/19 16:05 Vancomycin Trough 11.5 ug/mL (5.0-20.0) 03/18/19 13:19 Random Vancomycin 16.6 ug/mL (0-40.0) 03/30/19 04:31 Salicylates < 0.3 mg/dL (2.8-20.0) L 03/16/19 17:05 Urine Opiates Screen Presumptive negative 03/17/19 16:05 Urine Methadone Screen Presumptive negative 03/17/19 16:05 Acetaminophen < 5.0 ug/mL (10.0-30.0) L 03/16/19 17:05 Ur Barbiturates Screen Presumptive negative 03/17/19 16:05 Ur Phencyclidine Scrn Presumptive negative 03/17/19 16:05 Ur Amphetamines Screen Presumptive negative 03/17/19 16:05 U Benzodiazepines Scrn Presumptive positive 03/17/19 16:05 Urine Cocaine Screen Presumptive negative 03/17/19 16:05 U Marijuana (THC) Screen Presumptive negative 03/17/19 16:05 Drugs of Abuse Note Disclamer 03/17/19 16:05 Plasma/Serum Alcohol < 0.01 % (0-0.07) 03/16/19 17:05 Hepatitis A IgM Ab Non-reactive (NonReactive) 03/18/19 13:18 Hep Bs Antigen Non-reactive (Negative) 03/18/19 13:18 Hep B Core IgM Ab Non-reactive (NonReactive) 03/18/19 13:18 Hepatitis C Antibody Non-reactive (NonReactive) 03/18/19 13:18 HIV 1&2 Antibody Rapid Non react (Non React) 03/17/19 11:52 HIV P24 Antigen Non react (Non React) 03/17/19 11:52 Influenza A (Rapid) Negative (Negative) 03/17/19 17:00 Influenza B (Rapid) Negative (Negative) 03/17/19 17:00 Group A Strep Rapid Negative (Negative) 03/17/19 17:00 Miscellaneous Test Flexitest 1 03/21/19 12:00 Blood Type A POSITIVE 04/02/19 16:34 Antibody Screen Negative 04/02/19 16:34 Crossmatch See Detail 04/02/19 16:34 Active Medications - Current Medications Current Medications: Generic Name Dose Route Start Last Admin Trade Name Freq PRN Reason Stop Dose Admin Acetaminophen 650 mg 04/02/19 23:26 04/05/19 10:57 Tylenol PO 650 mg Q4H PRN Administration Pain, Mild (1-3),temp>100.5 Albuterol 2.5 mg 03/29/19 13:08 Proventil IH Q4HRT PRN Shortness Of Breath Amiodarone HCl 400 mg 04/04/19 12:00 04/05/19 14:37 Cordarone PO 400 mg TID PAOLO Administration Lipase/Protease/Amylase 1 each 03/17/19 14:[address] 10,500 Unit FEEDTUBE PRN PRN For Clogged Feeding Tube Calcium Acetate 1,334 mg 03/31/19 14:00 04/05/19 14:37 Phoslo PO 1,334 mg TID PAOLO Administration Dextrose 50 gm 03/19/19 18:39 03/26/19 23:26 D50w (25gm) Vial IV 50 gm PRN PRN Administration Hypoglycemia Epoetin Jet 20,000 unit 03/31/19 10:15 04/04/19 19:15 Procrit SUB-Q 20,000 unit NEYMAR PRN Administration hemodialysis Fentanyl 50 mcg 03/26/19 12:00 04/05/19 14:47 Sublimaze IV 50 mcg Q1H PRN Administration Pain, Moderate (4-6) Hydrophilic Ointment 1 applic 03/16/19 15:50 Vaseline Lip Therapy TP Q2HR PRN Dry Lips Phenylephrine HCl 100 mg/ 100 mls @ 3 mls/hr 03/17/19 02:30 03/19/19 18:48 Sodium Chloride IV Infused TITR PAOLO Titration Protocol 50 MCG/MIN Norepinephrine 4 mg in 250 mls @ 7.5 mls/hr 03/27/19 22:16 04/03/19 15:00 Levophed Drip 4 Mg/Ns 250 Ml IV 0 mcg/min TITR PAOLO 0 mls/hr Titration Protocol 2 MCG/MIN Vasopressin 20 unit/ Sodium 101 mls @ 9.09 mls/hr 03/28/19 09:00 04/03/19 00:00 Chloride IV 0 units/min TITR PAOLO 0 mls/hr Titration Protocol 0.03 UNITS/MIN Sodium Chloride 100 mls @ 999 mls/hr 04/04/19 10:00 Nacl 0.9% IV NEYMAR PRN Hypotension Lorazepam 2 mg 03/26/19 11:54 04/05/19 13:05 Ativan IV 2 mg Q1H PRN Administration Agitation Metoclopramide HCl 5 mg 04/02/19 18:00 04/05/19 12:55 Reglan IV 5 mg Q6HR PAOLO Administration Metoprolol Tartrate 12.5 mg 04/05/19 10:00 04/05/19 16:17 Lopressor PO 12.5 mg Q6H PAOLO Administration Multi-Ingred Cream/Lotion/Oil/Oint 1 applic 03/16/19 15:50 03/19/19 20:10 Artificial Tears Ophth Oint OU 1 applic Q4HR PRN Administration Dry Eye(s) Ondansetron HCl 4 mg 03/16/19 22:21 Zofran IV Q8H PRN Nausea And Vomiting Pantoprazole Sodium 40 mg 04/04/19 22:00 04/05/19 10:48 Protonix IV 40 mg BID PAOLO Administration Paricalcitol 2 mcg 03/30/19 10:00 04/05/19 10:52 Zemplar IV 2 mcg DAILY PAOLO Administration Simple Syrup 15 ml 03/17/19 14:45 03/26/19 23:19 Simple Syrup FEEDTUBE 15 ml PRN PRN Administration Hypoglycemia Simple Syrup 30 ml 03/17/19 14:45 Simple Syrup FEEDTUBE PRN PRN Hypoglycemia Sodium Bicarbonate 325 mg 03/17/19 14:45 Sodium Bicarbonate FEEDTUBE PRN PRN For Clogged Feeding Tube Nutrition/Malnutrition Assess - Dietary Evaluation Nutrition/Malnutrition Findings: Nutrition Notes Start: 03/17/19 1 4:22 Freq: Status: Active Protocol: Document 04/04/19 08:54 AIYANA (Rec: 04/04/19 09:41 AIYANA [email or web address]) Co-Sign 04/04/19 08:54 LM Nutrition Notes Initial or Follow up Reassessment Current Diagnosis Acute Kidney Injury Other Pertinent Diagnosis on HD, Septic shock,Multiple organ failure, encephalopathy, rhabdomyolysis Current Diet Nepro with Carbsteady at 55ml/ hr Labs/Tests Na 134 BUN 64 Cr 8.1 Pertinent Medications Reviewed Height 6 ft Weight 157.3 kg [place] Body Weight (kg) 80.90 BMI 47.0 Subjective/Other Information TF running at 10ml/hr Percent of energy/protein needs met: 18%/18% Burn Absent Trauma Absent Minimum of two criteria N #1 Nutrition Diagnosis Inadequate oral intake Diagnosis Progress(for reassessment Continues documentation) Is patient on ventilator? Yes Is Patient Ambulatory and/or Out of Bed No REE-([facility]-confined to bed) 2997.636 Kcal/Kg value to use for calculation 14 Approximate Energy Requirements Using 2202 kcal/Kg Calculation Used for Recommendations Kcal/kg Additional Notes Protein Needs: 202g (2.5g/kg IBW 80.9) Fluid Needs: 1 ml/kcal or per MD Nutrition Intervention Change Diet Order: Continue trickle feed until able to advance Nutrition Support: Nepro 1.8 at 10ml/hr Water flush 50ml q4hr Nepro 1.8 at 55 ml/hr Flush 100 ml q4hr for hyponatremia Kcal 432 Protein (gm) 19 Fluid (mL) 174 Goal #1 Advance TF to goal rate when medically feasible Goal #2 Meet at least 75% of energy and protein needs Anticipated Discharge Needs: Unable to determine at this time Follow-Up By: 04/06/19 Additional Comments F/U for TF advancement and goal rate
[2019-04-06] MEDS: METOCLOPRAMIDE 10 MG/2 ML INJ IV SCH ×5 (00:22→23:22)
[2019-04-06] MEDS: ACETAMINOPHEN 325 MG TAB PO PRN (00:22)
[2019-04-06] MEDS: METOPROLOL TARTRATE 25 MG TAB PO SCH ×4 (03:49→23:21)
[2019-04-06 05:36] LABS: Basophils % (Auto) 0.6 % (0.0-1.8); Eosinophils % (Auto) 0.4 % (0.0-4.3); Hematocrit 22.9 % (35.5-45.6); Hemoglobin 7.5 gm/dl (11.8-15.2); Mean Corpuscular HGB Conc 33 % (32-34); Mean Corpuscular Volume 92 fl (84-94); Monocytes # (Auto) 0.6 K/mm3 (0.0-0.8); Monocytes % (Auto) 10.7 % (0.0-7.3); Platelet Count 107 K/mm3 (140-440); Red Blood Count 2.48 M/mm3 (3.65-5.03)
[2019-04-06 05:41] LABS: Calcium 7.3 mg/dL (8.4-10.2)
[2019-04-06 05:50] LABS: ABG Base Excess -2.1 mmol/L (-2.0-3.0); ABG HCO3 22.6 mmol/L (20.0-26.0); ABG Methemoglobin 0.6 % (0.0-1.5); ABG Oxygen Saturation 97.8 % (95.0-99.0); ABG PCO2 38.5 mm Hg; ABG PH 7.388 pH Units (7.350-7.450)
[2019-04-06] MEDS: CALCIUM ACETATE 667 MG CAP PO SCH ×3 (08:00→23:20)
[2019-04-06] MEDS: AMIODARONE 200 MG TAB PO SCH ×3 (08:00→23:20)
--- NOTE | 2019-04-06 08:51 | Progress Note ---
Assessment and Plan Assessment and plan: Patient is a 43-year-old man with history of GERD, obesity and mental illness who presented to [facility] ED on 03/16/2019 with altered mental status. He is visiting from [place] and was brought in by his friend. When he came to the ER, he was unable to speak or follow commands, in the ER he was found to have SVT with heart rate in the 250s. The patient was shocks and medicated. He became more confused and had trouble protecting his airway; therefore, he was then intubated. During this hospital coarse, he was found to have sepsis with septic shock, rhabdomyolysis, RUBEN, and multisystem organ failure. According to the patient's clinical findings, the patient likely has toxic metabolic encephalopathy. Acute hypoxic respiratory failure on mechanical ventilator greater than 96 hours , suspect ARDS: pulmonologis is following, trying to wean P.Afib/flutter with RVR: treated with IV Amiodorone, Cardiology is following Torsade sparkle points/ventricular tachycardia Acute combine heart failure, EF 40%: Cardiology input noted, continue amiodarone drip, no beta-adela or CHRISTIN given hypotension, will need ischemic cardiac stratification if he improves. Acute GI bleed, upper GI bleed due to PUD, EGD on 03/30 shows multiple ulcers, and large ulcer was rx with epi, unfortunately patient had melena again on 04/02, resolved, Protonix iv bid now Acute blood loss anemia, Transfused multiple units of PRBC, now improved, transfuse another unit as patient is actively bleeding Right IJ nonocclusive thrombosis, Discussed with vascular surgery, patient unable to tolerate anticoagulation due to thrombocytopenia and GI bleeding. Will monitor Septic shock with multiorgan failure, off pressors >48 hours: down to Levophed, continue to wean vasopressors Aspiration pneumonia: completed ABX Acute kidney injury, rhabdomyolysis, hyperkalemia due to ATN: Continue dialysis per nephrology Acute Metabolic Encephalopathy Severe metabolic acidosis, improved: monitoring BMP closely Rhabdomyolysis, CK trending down Thrombocytopenia, Likely due to sepsis, continue to monitor ?Right axillary edema: no abscess, US no collection seen DVT prophylaxis, no anticoagulation given multiple episodes of GI bleed and thrombocytopenia. SCDs Febrile: ID to evaluate, get blood cultures, ua poor prognosis DNR History Interval history: Patient was seen and examined. Follow-up on current diagnosis of resp failure. No overnight events reported to me. Imaging, nursing note, chart, labs and old chart reviewed. Patient intubated and sedated. Hospitalist Physical - Physical exam Narrative exam: Gen: critically ill, bmi 47, intubated and sedated HEENT: NCAT, EOMI, PERRL, OP eTT and NGt in place Neck: supple, no adenopathy, no thyromegaly, CVS/Heart: irregular irregular, normal S1S2, pulses present bilaterally Chest/Lungs: Symmetrical chest expansion, good air entry bilaterally GI/Abdomen: soft, NTND, good bowel sounds, no guarding or rebound /Bladder: no suprapubic tenderness, no CVA or paraspinal tenderness Extermity/Skin: dependent edema MSK: sedated Neuro: sedated Psych: sedated - Constitutional Vitals: Temp Pulse Resp BP Pulse Ox 98.8 F 81 18 110/65 100 04/06/19 03:53 04/06/19 08:33 04/06/19 07:00 04/06/19 08:33 04/06/19 07:27 General appearance: Present: other (intubated) Results - Labs CBC & Chem 7: 04/06/19 04:44 04/06/19 04:44 Labs: Laboratory Last Values WBC 5.4 K/mm3 (4.5-11.0) 04/06/19 04:44 RBC 2.48 M/mm3 (3.65-5.03) L 04/06/19 04:44 Hgb 7.5 gm/dl (11.8-15.2) L 04/06/19 04:44 Hct 22.9 % (35.5-45.6) L 04/06/19 04:44 MCV 92 fl (84-94) 04/06/19 04:44 MCH 30 pg (28-32) 04/06/19 04:44 MCHC 33 % (32-34) 04/06/19 04:44 RDW 16.0 % (13.2-15.2) H 04/06/19 04:44 Plt Count 107 K/mm3 (140-440) L 04/06/19 04:44 Lymph % (Auto) 19.0 % (13.4-35.0) 04/06/19 04:44 Harvey % (Auto) 10.7 % (0.0-7.3) H 04/06/19 04:44 Eos % (Auto) 0.4 % (0.0-4.3) 04/06/19 04:44 Baso % (Auto) 0.6 % (0.0-1.8) 04/06/19 04:44 Lymph # 1.0 K/mm3 (1.2-5.4) L 04/06/19 04:44 Harvey # 0.6 K/mm3 (0.0-0.8) 04/06/19 04:44 Eos # 0.0 K/mm3 (0.0-0.4) 04/06/19 04:44 Baso # 0.0 K/mm3 (0.0-0.1) 04/06/19 04:44 Add Manual Diff Complete 03/28/19 18:10 Total Counted 100 03/28/19 18:10 Seg Neutrophils % 69.3 % (40.0-70.0) 04/06/19 04:44 Seg Neuts % (Manual) 91.0 % (40.0-70.0) H 03/28/19 18:10 Band Neutrophils % 0 % 03/28/19 18:10 Lymphocytes % (Manual) 8.0 % (13.4-35.0) L 03/28/19 18:10 Reactive Lymphs % (Man) 0 % 03/28/19 18:10 Monocytes % (Manual) 1.0 % (0.0-7.3) 03/28/19 18:10 Eosinophils % (Manual) 0 % (0.0-4.3) 03/28/19 18:10 Basophils % (Manual) 0 % (0.0-1.8) 03/28/19 18:10 Metamyelocytes % 0 % 03/28/19 18:10 Myelocytes % 0 % 03/28/19 18:10 Promyelocytes % 0 % 03/28/19 18:10 Blast Cells % 0 % 03/28/19 18:10 Nucleated RBC % Not Reportable 03/28/19 18:10 Seg Neutrophils # 3.7 K/mm3 (1.8-7.7) 04/06/19 04:44 Seg Neutrophils # Man 22.6 K/mm3 (1.8-7.7) H 03/28/19 18:10 Band Neutrophils # 0.0 K/mm3 03/28/19 18:10 Lymphocytes # (Manual) 2.0 K/mm3 (1.2-5.4) 03/28/19 18:10 Abs React Lymphs (Man) 0.0 K/mm3 03/28/19 18:10 Monocytes # (Manual) 0.2 K/mm3 (0.0-0.8) 03/28/19 18:10 Eosinophils # (Manual) 0.0 K/mm3 (0.0-0.4) 03/28/19 18:10 Basophils # (Manual) 0.0 K/mm3 (0.0-0.1) 03/28/19 18:10 Metamyelocytes # 0.0 K/mm3 03/28/19 18:10 Myelocytes # 0.0 K/mm3 03/28/19 18:10 Promyelocytes # 0.0 K/mm3 03/28/19 18:10 Blast Cells # 0.0 K/mm3 03/28/19 18:10 WBC Morphology Not Reportable 03/28/19 18:10 Hypersegmented Neuts Not Reportable 03/28/19 18:10 Hyposegmented Neuts Not Reportable 03/28/19 18:10 Hypogranular Neuts Not Reportable 03/28/19 18:10 Smudge Cells Not Reportable 03/28/19 18:10 Toxic Granulation Not Reportable 03/28/19 18:10 Toxic Vacuolation Not Reportable 03/28/19 18:10 Dohle Bodies Not Reportable 03/28/19 18:10 Pelger-Huet Anomaly Not Reportable 03/28/19 18:10 Joyce Rods Not Reportable 03/28/19 18:10 Platelet Estimate Appears decreased 03/28/19 18:10 Clumped Platelets Not Reportable 03/28/19 18:10 Plt Clumps, EDTA Not Reportable 03/28/19 18:10 Large Platelets Not Reportable 03/28/19 18:10 Giant Platelets Not Reportable 03/28/19 18:10 Platelet Satelliting Not Reportable 03/28/19 18:10 Plt Morphology Comment Not Reportable 03/28/19 18:10 RBC Morphology Not Reportable 03/28/19 18:10 Dimorphic RBCs Not Reportable 03/28/19 18:10 Polychromasia Not Reportable 03/28/19 18:10 Hypochromasia Not Reportable 03/28/19 18:10 Poikilocytosis Not Reportable 03/28/19 18:10 Anisocytosis Few 03/28/19 18:10 Microcytosis Not Reportable 03/28/19 18:10 Macrocytosis Not Reportable 03/28/19 18:10 Spherocytes Not Reportable 03/28/19 18:10 Pappenheimer Bodies Not Reportable 03/28/19 18:10 Sickle Cells Not Reportable 03/28/19 18:10 Target Cells Not Reportable 03/28/19 18:10 Tear Drop Cells Not Reportable 03/28/19 18:10 Ovalocytes Not Reportable 03/28/19 18:10 Stomatocytes Few 03/26/19 Unknown Helmet Cells Not Reportable 03/28/19 18:10 [place] Bodies Not Reportable 03/28/19 18:10 [place] Rings Not Reportable 03/28/19 18:10 [place] Cells Not Reportable 03/28/19 18:10 Bite Cells Not Reportable 03/28/19 18:10 Crenated Cell Not Reportable 03/28/19 18:10 Elliptocytes Not Reportable 03/28/19 18:10 Acanthocytes (Spur) Not Reportable 03/28/19 18:10 Rouleaux Not Reportable 03/28/19 18:10 Hemoglobin C Crystals Not Reportable 03/28/19 18:10 Schistocytes Not Reportable 03/28/19 18:10 Malaria parasites Not Reportable 03/28/19 18:10 Phil Bodies Not Reportable 03/28/19 18:10 Hem Pathologist Commnt No 03/28/19 18:10 PT 15.3 Sec. (12.2-14.9) H 03/29/19 11:48 INR 1.24 (0.87-1.13) H 03/29/19 11:48 APTT 26.6 Sec. (24.2-36.6) 03/28/19 12:00 Fibrinogen 226 mg/dl (211-480) 03/28/19 12:00 D-Dimer 4845.98 ng/mlDDU (0-234) H 03/28/19 12:00 Heparin Anti-Xa Level 0.23 U.I./ml (0.3-0.7) L 03/28/19 05:13 POC ABG pH 7.423 (7.35-7.45) 04/05/19 12:06 ABG pH 7.388 pH Units (7.350-7.450) 04/06/19 05:20 POC ABG pCO2 39.1 (35-45) 04/05/19 12:06 ABG pCO2 38.5 mm Hg 04/06/19 05:20 POC ABG pO2 98 (80-105) 04/05/19 12:06 ABG pO2 104.0 mm Hg (80.0-90.0) H 04/06/19 05:20 POC ABG HCO3 25.5 (22-26 mml/L) 04/05/19 12:06 ABG HCO3 22.6 mmol/L (20.0-26.0) 04/06/19 05:20 POC ABG Total CO2 27 (23-27mmol/L) 04/05/19 12:06 POC ABG O2 Sat 98 04/05/19 12:06 ABG O2 Saturation 97.8 % (95.0-99.0) 04/06/19 05:20 ABG O2 Content 10.0 (0.0-44) 04/06/19 05:20 POC ABG Base Excess 1 ((-2) - (+3)mmol/L) 04/05/19 12:06 ABG Base Excess -2.1 mmol/L (-2.0-3.0) L 04/06/19 05:20 ABG Hemoglobin 7.3 gm/dl (14.0-18.0) L 04/06/19 05:20 ABG Carboxyhemoglobin 1.7 % (0.0-5.0) 04/06/19 05:20 ABG Methemoglobin 0.6 % (0.0-1.5) 04/06/19 05:20 Oxyhemoglobin 95.5 % (95.0-99.0) 04/06/19 05:20 FiO2 30 % 04/06/19 05:20 Sodium 138 mmol/L (137-145) 04/06/19 04:44 Potassium 3.8 mmol/L (3.6-5.0) 04/06/19 04:44 Chloride 101.6 mmol/L (98-107) 04/06/19 04:44 Carbon Dioxide 24 mmol/L (22-30) 04/06/19 04:44 Anion Gap 16 mmol/L 04/06/19 04:44 BUN 64 mg/dL (9-20) H 04/06/19 04:44 Creatinine 8.2 mg/dL (0.8-1.5) H 04/06/19 04:44 Estimated GFR 9 ml/min 04/06/19 04:44 BUN/Creatinine Ratio 8 % 04/06/19 04:44 Glucose 103 mg/dL (75-100) H 04/06/19 04:44 POC Glucose 118 (70-105) H 04/06/19 05:23 Lactic Acid 1.90 mmol/L (0.7-2.0) 03/21/19 21:31 Calcium 7.3 mg/dL (8.4-10.2) L 04/06/19 04:44 Ionized Calcium 3.7 mg/dL (4.8-5.6) L 03/30/19 12:09 Phosphorus 5.80 mg/dL (2.5-4.5) H D 04/03/19 08:30 Magnesium 1.90 mg/dL (1.7-2.3) 03/31/19 15:07 Iron 26 ug/dL (49-181) L 04/02/19 05:03 TIBC 138 mcg/dL (250-450) L 04/02/19 05:03 Ferritin 607.0 ng/mL (13.0-400.0) H 04/02/19 05:03 Total Bilirubin 0.50 mg/dL (0.1-1.2) 03/31/19 08:20 Direct Bilirubin 0.4 mg/dL (0-0.2) H 03/31/19 08:20 Indirect Bilirubin 0.1 mg/dL 03/31/19 08:20 AST 60 units/L (5-40) H 03/31/19 08:20 ALT 30 units/L (7-56) 03/31/19 08:20 Alkaline Phosphatase 59 units/L (35-129) 03/31/19 08:20 Total Creatine Kinase 131 units/L (55-170) 04/06/19 04:44 CK-MB (CK-2) 54.3 ng/mL (0.0-4.0) H 03/17/19 07:16 CK-MB (CK-2) Rel Index 0.0 (0-4) 03/17/19 07:16 Troponin T 0.058 ng/mL (0.00-0.029) H 03/17/19 07:16 C-Reactive Protein 13.30 mg/dL (0.00-1.30) H 03/20/19 14:45 Total Protein 4.8 g/dL (6.3-8.2) L 03/31/19 08:20 Albumin 2.1 g/dL (3.9-5) L 03/31/19 08:20 Albumin/Globulin Ratio 0.8 % 03/31/19 08:20 Triglycerides 309 mg/dL (2-149) H 03/29/19 06:22 Cholesterol 88 mg/dL (50-199) 03/16/19 22:32 LDL Cholesterol Direct 10 mg/dL (50-130) L 03/16/19 22:32 HDL Cholesterol 7 mg/dL (40-59) L 03/16/19 22:32 Cholesterol/HDL Ratio 12.57 % 03/16/19 22:32 Vitamin B12 903.0 pg/mL (211-911) 04/02/19 05:03 Folate 8.05 ng/mL (7.3-26.0) 04/02/19 05:03 Procalcitonin 25.42 ng/mL (<0.15) 03/27/19 19:21 TSH 2.200 mlU/mL (0.270-4.200) 03/16/19 17:05 Free T4 0.72 ng/dL (0.76-1.46) L 03/16/19 17:05 PTH Intact 329.9 pg/mL (15-65) H 03/25/19 05:00 Urine Color Kathy (Yellow) 04/05/19 16:50 Urine Turbidity Cloudy (Clear) 04/05/19 16:50 Urine pH 5.0 (5.0-7.0) 04/05/19 16:50 Ur Specific [place] 1.018 (1.003-1.030) 04/05/19 16:50 Urine Protein 100 mg/dl mg/dL (Negative) 04/05/19 16:50 Urine Glucose (UA) Neg mg/dL (Negative) 04/05/19 16:50 Urine Ketones Neg mg/dL (Negative) 04/05/19 16:50 Urine Blood Lg (Negative) 04/05/19 16:50 Urine Nitrite Neg (Negative) 04/05/19 16:50 Urine Bilirubin Neg (Negative) 04/05/19 16:50 Urine Urobilinogen < 2.0 mg/dL (<2.0) 04/05/19 16:50 Ur Leukocyte Esterase Tr (Negative) 04/05/19 16:50 Urine WBC (Auto) 40.0 /HPF (0.0-6.0) H 04/05/19 16:50 Urine RBC (Auto) > 182.0 /HPF (0.0-6.0) 04/05/19 16:50 U Epithel Cells (Auto) < 1.0 /HPF (0-13.0) 03/17/19 16:05 Amorphous Crystals 1+ 04/05/19 16:50 Urine Mucus Few /HPF 03/17/19 16:05 Urine Sperm 2+ /HPF ([employer]ER) 03/17/19 16:05 Urine Eosinophils None seen (None Seen) 03/17/19 16:05 Urine Creatinine 106.6 mg/dL (0.1-20.0) H 03/17/19 16:05 Urine Sodium 95 mmol/L 03/17/19 16:05 Vancomycin Trough 11.5 ug/mL (5.0-20.0) 03/18/19 13:19 Random Vancomycin 16.6 ug/mL (0-40.0) 03/30/19 04:31 Salicylates < 0.3 mg/dL (2.8-20.0) L 03/16/19 17:05 Urine Opiates Screen Presumptive negative 03/17/19 16:05 Urine Methadone Screen Presumptive negative 03/17/19 16:05 Acetaminophen < 5.0 ug/mL (10.0-30.0) L 03/16/19 17:05 Ur Barbiturates Screen Presumptive negative 03/17/19 16:05 Ur Phencyclidine Scrn Presumptive negative 03/17/19 16:05 Ur Amphetamines Screen Presumptive negative 03/17/19 16:05 U Benzodiazepines Scrn Presumptive positive 03/17/19 16:05 Urine Cocaine Screen Presumptive negative 03/17/19 16:05 U Marijuana (THC) Screen Presumptive negative 03/17/19 16:05 Drugs of Abuse Note Disclamer 03/17/19 16:05 Plasma/Serum Alcohol < 0.01 % (0-0.07) 03/16/19 17:05 Hepatitis A IgM Ab Non-reactive (NonReactive) 03/18/19 13:18 Hep Bs Antigen Non-reactive (Negative) 03/18/19 13:18 Hep B Core IgM Ab Non-reactive (NonReactive) 03/18/19 13:18 Hepatitis C Antibody Non-reactive (NonReactive) 03/18/19 13:18 HIV 1&2 Antibody Rapid Non react (Non React) 03/17/19 11:52 HIV P24 Antigen Non react (Non React) 03/17/19 11:52 Influenza A (Rapid) Negative (Negative) 03/17/19 17:00 Influenza B (Rapid) Negative (Negative) 03/17/19 17:00 Group A Strep Rapid Negative (Negative) 03/17/19 17:00 Miscellaneous Test Flexitest 1 03/21/19 12:00 Blood Type A POSITIVE 04/02/19 16:34 Antibody Screen Negative 04/02/19 16:34 Crossmatch See Detail 04/02/19 16:34 Active Medications - Current Medications Current Medications: Generic Name Dose Route Start Last Admin Trade Name Freq PRN Reason Stop Dose Admin Acetaminophen 650 mg 04/02/19 23:26 04/06/19 00:22 Tylenol PO 650 mg Q4H PRN Administration Pain, Mild (1-3),temp>100.5 Albuterol 2.5 mg 03/29/19 13:08 Proventil IH Q4HRT PRN Shortness Of Breath Amiodarone HCl 400 mg 04/04/19 12:00 04/05/19 19:45 Cordarone PO 400 mg TID PAOLO Administration Lipase/Protease/Amylase 1 each 03/17/19 14:[address] 10,500 Unit FEEDTUBE PRN PRN For Clogged Feeding Tube Calcium Acetate 1,334 mg 03/31/19 14:00 04/05/19 19:45 Phoslo PO 1,334 mg TID PAOLO Administration Dextrose 50 gm 03/19/19 18:39 03/26/19 23:26 D50w (25gm) Vial IV 50 gm PRN PRN Administration Hypoglycemia Epoetin Jet 20,000 unit 03/31/19 10:15 04/04/19 19:15 Procrit SUB-Q 20,000 unit NEYMAR PRN Administration hemodialysis Fentanyl 50 mcg 03/26/19 12:00 04/05/19 14:47 Sublimaze IV 50 mcg Q1H PRN Administration Pain, Moderate (4-6) Hydrophilic Ointment 1 applic 03/16/19 15:50 Vaseline Lip Therapy TP Q2HR PRN Dry Lips Phenylephrine HCl 100 mg/ 100 mls @ 3 mls/hr 03/17/19 02:30 03/19/19 18:48 Sodium Chloride IV Infused TITR PAOLO Titration Protocol 50 MCG/MIN Norepinephrine 4 mg in 250 mls @ 7.5 mls/hr 03/27/19 22:16 04/03/19 15:00 Levophed Drip 4 Mg/Ns 250 Ml IV 0 mcg/min TITR PAOLO 0 mls/hr Titration Protocol 2 MCG/MIN Vasopressin 20 unit/ Sodium 101 mls @ 9.09 mls/hr 03/28/19 09:00 04/03/19 00:00 Chloride IV 0 units/min TITR PAOLO 0 mls/hr Titration Protocol 0.03 UNITS/MIN Sodium Chloride 100 mls @ 999 mls/hr 04/04/19 10:00 Nacl 0.9% IV NEYMAR PRN Hypotension Lorazepam 2 mg 03/26/19 11:54 04/05/19 17:55 Ativan IV 2 mg Q1H PRN Administration Agitation Metoclopramide HCl 5 mg 04/02/19 18:00 04/06/19 05:51 Reglan IV 5 mg Q6HR PAOLO Administration Metoprolol Tartrate 12.5 mg 04/05/19 10:00 04/06/19 03:49 Lopressor PO Not Given Q6H [facility] Multi-Ingred Cream/Lotion/Oil/Oint 1 applic 03/16/19 15:50 03/19/19 20:10 Artificial Tears Ophth Oint OU 1 applic Q4HR PRN Administration Dry Eye(s) Ondansetron HCl 4 mg 03/16/19 22:21 Zofran IV Q8H PRN Nausea And Vomiting Pantoprazole Sodium 40 mg 04/04/19 22:00 04/05/19 21:30 Protonix IV 40 mg BID PAOLO Administration Paricalcitol 2 mcg 03/30/19 10:00 04/05/19 10:52 Zemplar IV 2 mcg DAILY PAOLO Administration Simple Syrup 15 ml 03/17/19 14:45 03/26/19 23:19 Simple Syrup FEEDTUBE 15 ml PRN PRN Administration Hypoglycemia Simple Syrup 30 ml 03/17/19 14:45 Simple Syrup FEEDTUBE PRN PRN Hypoglycemia Sodium Bicarbonate 325 mg 03/17/19 14:45 Sodium Bicarbonate FEEDTUBE PRN PRN For Clogged Feeding Tube Nutrition/Malnutrition Assess - Dietary Evaluation Nutrition/Malnutrition Findings: Nutrition Notes Start: 03/17/19 14:22 Freq: Status: Active Protocol: Document 04/04/19 08:54 AIYANA (Rec: 04/04/19 09:41 AIYANA [email or web address]) Co-Sign 04/04/19 08:54 LM Nutrition Notes Initial or Follow up Reassessment Current Diagnosis Acute Kidney Injury Other Pertinent Diagnosis on HD, Septic shock,Multiple organ failure, encephalopathy, rhabdomyolysis Current Diet Nepro with Carbsteady at 55ml/ hr Labs/Tests Na 134 BUN 64 Cr 8.1 Pertinent Medications Reviewed Height 6 ft Weight 157.3 kg [place] Body Weight (kg) 80.90 BMI 47.0 Subjective/Other Information TF running at 10ml/hr Percent of energy/protein needs met: 18%/18% Burn Absent Trauma Absent Minimum of two criteria N #1 Nutrition Diagnosis Inadequate oral intake Diagnosis Progress(for reassessment Continues documentation) Is patient on ventilator? Yes Is Patient Ambulatory and/or Out of Bed No REE-([facility]-confined to bed) 2997.636 Kcal/Kg value to use for calculation 14 Approximate Energy Requirements Using 2202 kcal/Kg Calculation Used for Recommendations Kcal/kg Additional Notes Protein Needs: 202g (2.5g/kg IBW 80.9) Fluid Needs: 1 ml/kcal or per MD Nutrition Intervention Change Diet Order: Continue trickle feed until able to advance Nutrition Support: Nepro 1.8 at 10ml/hr Water flush 50ml q4hr Nepro 1.8 at 55 ml/hr Flush 100 ml q4hr for hyponatremia Kcal 432 Protein (gm) 19 Fluid (mL) 174 Goal #1 Advance TF to goal rate when medically feasible Goal #2 Meet at least 75% of energy and protein needs Anticipated Discharge Needs: Unable to determine at this time Follow-Up By: 04/06/19 Additional Comments F/U for TF advancement and goal rate
--- NOTE | 2019-04-06 08:55 | Hem/Onc Progress Note ---
Assessment and Plan 1. h/o Anemia. The patient has history of bleeding. 2. Internal jugular partial thrombosis. The patient was started on heparin. This has been held due to bleeding 3. Gastrointestinal bleed. 4. h/o Elevated creatinine kinase. 5. h/o Low calcium. 6. h/o Thrombocytopenia. 7. h/o Renal failure. 8. Intubation. 9. Transfusion support. 10. Leukocytosis. At this time, supportive care may help the patient. The patient's platelet had been low at admission. Urine toxicology was negative. awake - on vent dvt - off anticoagulation - due to bleeding platelet going down - meds vs infection s/p iv iron trial d/w dr caldwell - Patient Problems (1) DVT (deep venous thrombosis) Current Visit: Yes Status: Acute Subjective Date of service: 04/06/19 Principal diagnosis: anemia - IJ DVT Interval history: on vent - getting HD Objective - Exam Narrative Exam: Pain - intubated General appearance - awake - on vent Performance status complete dependence Eyes - no icterus ENT - intubated LNs cervical not palpable Neck - no LN Respiratory Normal Breath sounds - CTA anteriorly CVS S1 S2 + Extremities edema + General GI Soft Rectal deferred male - deferred Skin warm Musculoskeletal awake - on vent Neurologically awake - Constitutional Vitals: Last Vital Signs Temp 98.8 F 04/06/19 03:53 Pulse 81 04/06/19 08:33 Resp 18 04/06/19 07:00 BP 110/65 04/06/19 08:33 Pulse Ox 100 04/06/19 07:27 - Labs Lab Results: Laboratory Results - last 24 hr 04/05/19 04/05/19 04/05/19 12:05 12:06 16:50 WBC RBC Hgb Hct MCV MCH MCHC RDW Plt Count Lymph % (Auto) [place] % (Auto) Eos % (Auto) Baso % (Auto) Lymph # [place] # Eos # Baso # Seg Neutrophils % Seg Neutrophils # POC ABG pH 7.423 ABG pH POC ABG pCO2 39.1 ABG pCO2 POC ABG pO2 98 ABG pO2 POC ABG HCO3 25.5 ABG HCO3 POC ABG Total CO2 27 POC ABG O2 Sat 98 ABG O2 Saturation ABG O2 Content POC ABG Base Excess 1 ABG Base Excess ABG Hemoglobin ABG Carboxyhemoglobin ABG Methemoglobin Oxyhemoglobin FiO2 40 Sodium Potassium Chloride Carbon Dioxide Anion Gap BUN Creatinine Estimated GFR BUN/Creatinine Ratio Glucose POC Glucose 102 Calcium Total Creatine Kinase Urine Color Kathy Urine Turbidity Cloudy Urine pH 5.0 Ur Specific [place] 1.018 Urine Protein 100 mg/dl Urine Glucose (UA) Neg Urine Ketones Neg Urine Blood Lg Urine Nitrite Neg Urine Bilirubin Neg Urine Urobilinogen < 2.0 Ur Leukocyte Esterase Tr Urine WBC (Auto) 40.0 H Urine RBC (Auto) > 182.0 Amorphous Crystals 1+ 04/05/19 04/06/19 04/06/19 17:22 00:13 04:44 WBC 5.4 RBC 2.48 L Hgb 7.5 L Hct 22.9 L MCV 92 MCH 30 MCHC 33 RDW 16.0 H Plt Count 107 L Lymph % (Auto) 19.0 [place] % (Auto) 10.7 H Eos % (Auto) 0.4 Baso % (Auto) 0.6 Lymph # 1.0 L [place] # 0.6 Eos # 0.0 Baso # 0.0 Seg Neutrophils % 69.3 Seg Neutrophils # 3.7 POC ABG pH ABG pH POC ABG pCO2 ABG pCO2 POC ABG pO2 ABG pO2 POC ABG HCO3 ABG HCO3 POC ABG Total CO2 POC ABG O2 Sat ABG O2 Saturation ABG O2 Content POC ABG Base Excess ABG Base Excess ABG Hemoglobin ABG Carboxyhemoglobin ABG Methemoglobin Oxyhemoglobin FiO2 Sodium Potassium Chloride Carbon Dioxide Anion Gap BUN Creatinine Estimated GFR BUN/Creatinine Ratio Glucose POC Glucose 118 H 138 H Calcium Total Creatine Kinase Urine Color Urine Turbidity Urine pH Ur Specific [place] Urine Protein Urine Glucose (UA) Urine Ketones Urine Blood Urine Nitrite Urine Bilirubin Urine Urobilinogen Ur Leukocyte Esterase Urine WBC (Auto) Urine RBC (Auto) Amorphous Crystals 04/06/19 04/06/19 04/06/19 04:44 05:20 05:23 WBC RBC Hgb Hct MCV MCH MCHC RDW Plt Count Lymph % (Auto) [place] % (Auto) Eos % (Auto) Baso % (Auto) Lymph # [place] # Eos # Baso # Seg Neutrophils % Seg Neutrophils # POC ABG pH ABG pH 7.388 POC ABG pCO2 ABG pCO2 38.5 POC ABG pO2 ABG pO2 104.0 H POC ABG HCO3 ABG HCO3 22.6 POC ABG Total CO2 POC ABG O2 Sat ABG O2 Saturation 97.8 ABG O2 Content 10.0 POC ABG Base Excess ABG Base Excess -2.1 L ABG Hemoglobin 7.3 L ABG Carboxyhemoglobin 1.7 ABG Methemoglobin 0.6 Oxyhemoglobin 95.5 FiO2 30 Sodium 138 Potassium 3.8 Chloride 101.6 Carbon Dioxide 24 Anion Gap 16 BUN 64 H Creatinine 8.2 H Estimated GFR 9 BUN/Creatinine Ratio 8 Glucose 103 H POC Glucose 118 H Calcium 7.3 L Total Creatine Kinase 131 Urine Color Urine Turbidity Urine pH Ur Specific [place] Urine Protein Urine Glucose (UA) Urine Ketones Urine Blood Urine Nitrite Urine Bilirubin Urine Urobilinogen Ur Leukocyte Esterase Urine WBC (Auto) Urine RBC (Auto) Amorphous Crystals Medications & Allergies - Medications Allergies/Adverse Reactions: Allergies No Known Allergies Allergy (Unverified 03/16/19 17:17) Home Medications: Home Medications Medication Instructions Recorded Confirmed Last Taken Type RX: Unobtainable 03/18/19 03/18/19 Unknown History Active Medications: Generic Name Dose Route Start Last Admin Trade Name Freq PRN Reason Stop Dose Admin Acetaminophen 650 mg 04/02/19 23:26 04/06/19 00:22 Tylenol PO 650 mg Q4H PRN Administration Pain, Mild (1-3),temp>100.5 Albuterol 2.5 mg 03/29/19 13:08 Proventil IH Q4HRT PRN Shortness Of Breath Amiodarone HCl 400 mg 04/04/19 12:00 04/05/19 19:45 Cordarone PO 400 mg TID PAOLO Administration Lipase/Protease/Amylase 1 each 03/17/19 14:45 Pancrekarly [place] 10,500 Unit FEEDTUBE PRN PRN For Clogged Feeding Tube Calcium Acetate 1,334 mg 03/31/19 14:00 04/05/19 19:45 Phoslo PO 1,334 mg TID PAOLO Administration Dextrose 50 gm 03/19/19 18:39 03/26/19 23:26 D50w (25gm) Vial IV 50 gm PRN PRN Administration Hypoglycemia Epoetin Jet 20,000 unit 03/31/19 10:15 04/04/19 19:15 Procrit SUB-Q 20,000 unit NEYMAR PRN Administration hemodialysis Fentanyl 50 mcg 03/26/19 12:00 04/05/19 14:47 Sublimaze IV 50 mcg Q1H PRN Administration Pain, Moderate (4-6) Hydrophilic Ointment 1 applic 03/16/19 15:50 Vaseline Lip Therapy TP Q2HR PRN Dry Lips Phenylephrine HCl 100 mg/ 100 mls @ 3 mls/hr 03/17/19 02:30 03/19/19 18:48 Sodium Chloride IV Infused TITR PAOLO Titration Protocol 50 MCG/MIN Norepinephrine 4 mg in 250 mls @ 7.5 mls/hr 03/27/19 22:16 04/03/19 15:00 Levophed Drip 4 Mg/Ns 250 Ml IV 0 mcg/min TITR PAOLO 0 mls/hr Titration Protocol 2 MCG/MIN Vasopressin 20 unit/ Sodium 101 mls @ 9.09 mls/hr 03/28/19 09:00 04/03/19 00:00 Chloride IV 0 units/min TITR PAOLO 0 mls/hr Titration Protocol 0.03 UNITS/MIN Sodium Chloride 100 mls @ 999 mls/hr 04/04/19 10:00 Nacl 0.9% IV NEYMAR PRN Hypotension Lorazepam 2 mg 03/26/19 11:54 04/05/19 17:55 Ativan IV 2 mg Q1H PRN Administration Agitation Metoclopramide HCl 5 mg 04/02/19 18:00 04/06/19 05:51 Reglan IV 5 mg Q6HR PAOLO Administration Metoprolol Tartrate 12.5 mg 04/05/19 10:00 04/06/19 03:49 Lopressor PO Not Given Q6H PAOLO Multi-Ingred Cream/Lotion/Oil/Oint 1 applic 03/16/19 15:50 03/19/19 20:10 Artificial Tears Ophth Oint OU 1 applic Q4HR PRN Administration Dry Eye(s) Ondansetron HCl 4 mg 03/16/19 22:21 Zofran IV Q8H PRN Nausea And Vomiting Pantoprazole Sodium 40 mg 04/04/19 22:00 04/05/19 21:30 Protonix IV 40 mg BID PAOLO Administration Paricalcitol 2 mcg 03/30/19 10:00 04/05/19 10:52 Zemplar IV 2 mcg DAILY PAOLO Administration Simple Syrup 15 ml 03/17/19 14:45 03/26/19 23:19 Simple Syrup FEEDTUBE 15 ml PRN PRN Administration Hypoglycemia Simple Syrup 30 ml 03/17/19 14:45 Simple Syrup FEEDTUBE PRN PRN Hypoglycemia Sodium Bicarbonate 325 mg 03/17/19 14:45 Sodium Bicarbonate FEEDTUBE PRN PRN For Clogged Feeding Tube
[2019-04-06] MEDS: PARICALCITOL 2 MCG/1 ML INJ IV SCH (10:00)
[2019-04-06] MEDS: PANTOPRAZOLE 40 MG INJ IV SCH ×2 (10:00→23:22)
--- NOTE | 2019-04-06 10:19 | Progress Note ---
Assessment and Plan 1. Acute kidney injury: Vasomotor RUBEN in the setting of shock / volume depletion / Rhabdo. Baseline renal function is unknown. CT abdomen was negative for obstructive nephropathy. Monitor renal function. Renal prognosis is guarded. Avoid nephrotoxic agents. Meds dosage based on GFR. Patient was started on hemodialysis on 03/18/19 due to worsening metabolic acidosis and hyperkalemia. Hemodialysis: 03/18, 03/19, 03/20, 03/22, 03/23, 03/24, 03/26, 03/28, 03/29, 03/31, 04/02, 04/04, 04/06. 2. FEN: Hyperkalemia, improved. Hyponatremia, improved. Metabolic acidosis, on maintenance HD. Volume overload, UF with HD as tolerated. Hypocalcemia, likely multifactorial. On Phoslo and Zemplar. Monitor lytes. 3. Septic shock: Followed by ID. Currently off pressors. Continue to have fever. 4. Rhabdomyolysis: Improved. 5. SVT / V.tach: Followed by Cards. 6. Respiratory failure: On vent. 7. Severe anemia: S/p PRBC. On Epogen. 8. A.fib with RVR. 9. Elevated transaminases. 10. Encephalopathy. Examination: General appearance: well-developed, appears stated age, obese, intubated, on vent HEENT: Atraumatic EYES: Pupils reacting to light Neck: supple Respiratory: coarse breath sounds Cardiology: irregular, S1S2 heard, no murmur Gastrointestinal: no tenderness, obese, BS heard Integumentary: no rash noted Neurologic: opens eyes Ext: 1+ edema of all 4 extremities Hemodialysis access: R IJ temp catheter Subjective Date of service: 04/06/19 Principal diagnosis: anemia - IJ DVT Interval history: Patient was seen and examined at the bedside. Remain on the vent. Objective - Vital Signs Vital signs: Vital Signs - 12hr 04/05/19 04/05/19 04/05/19 22:23 22:30 23:00 Temperature Pulse Rate 102 H 102 H 99 H Pulse Rate [ From Monitor] Respiratory 29 H 22 28 H Rate Blood Pressure 140/88 141/85 135/79 O2 Sat by Pulse 100 100 100 Oximetry 04/05/19 04/05/19 04/06/19 23:30 23:39 00:00 Temperature 102.7 F H Pulse Rate 96 H 91 H Pulse Rate [ 89 From Monitor] Respiratory 24 22 Rate Blood Pressure 128/72 115/62 O2 Sat by Pulse 100 97 Oximetry 04/06/19 04/06/19 04/06/19 00:05 00:30 01:00 Temperature Pulse Rate 90 88 82 Pulse Rate [ From Monitor] Respiratory 21 15 Rate Blood Pressure 115/62 126/71 114/62 O2 Sat by Pulse 100 100 100 Oximetry 04/06/19 04/06/19 04/06/19 01:30 02:00 02:30 Temperature Pulse Rate 80 81 82 Pulse Rate [ From Monitor] Respiratory 15 16 13 Rate Blood Pressure 117/59 116/64 117/68 O2 Sat by Pulse 100 100 100 Oximetry 04/06/19 04/06/19 04/06/19 03:00 03:30 03:49 Temperature Pulse Rate 78 79 80 Pulse Rate [ From Monitor] Respiratory 15 15 Rate Blood Pressure 116/61 102/56 102/56 O2 Sat by Pulse 100 100 Oximetry 04/06/19 04/06/19 04/06/19 03:53 04:00 04:30 Temperature 98.8 F Pulse Rate 77 78 Pulse Rate [ 76 From Monitor] Respiratory 19 12 Rate Blood Pressure 96/50 103/57 O2 Sat by Pulse 97 100 Oximetry 04/06/19 04/06/19 04/06/19 05:00 05:11 05:30 Temperature Pulse Rate 73 74 74 Pulse Rate [ From Monitor] Respiratory 17 19 Rate Blood Pressure 99/48 99/48 100/46 O2 Sat by Pulse 93 100 94 Oximetry 04/06/19 04/06/19 04/06/19 06:00 06:30 07:00 Temperature Pulse Rate 74 73 76 Pulse Rate [ From Monitor] Respiratory 19 16 18 Rate Blood Pressure 103/55 107/55 110/55 O2 Sat by Pulse 100 100 100 Oximetry 04/06/19 04/06/19 04/06/19 07:27 07:55 08:00 Temperature Pulse Rate 81 81 78 Pulse Rate [ 112 H From Monitor] Respiratory 18 Rate Blood Pressure 111/58 110/65 112/62 O2 Sat by Pulse 100 98 Oximetry 04/06/19 04/06/19 04/06/19 08:15 08:30 08:45 Temperature Pulse Rate 76 77 98 H Pulse Rate [ From Monitor] Respiratory Rate Blood Pressure 102/56 105/56 90/51 O2 Sat by Pulse Oximetry 04/06/19 04/06/19 04/06/19 09:00 09:15 09:30 Temperature Pulse Rate 104 H 112 H 115 H Pulse Rate [ From Monitor] Respiratory Rate Blood Pressure 92/62 100/58 105/66 O2 Sat by Pulse Oximetry 04/06/19 04/06/19 09:45 10:00 Temperature Pulse Rate 107 H 115 H Pulse Rate [ From Monitor] Respiratory Rate Blood Pressure 108/66 107/57 O2 Sat by Pulse Oximetry - Lab 04/06/19 04:44 04/06/19 04:44 Most recent lab results ABG pH 7.388 pH Units (7.350-7.450) 04/06/19 05:20 ABG pCO2 38.5 mm Hg 04/06/19 05:20 ABG pO2 104.0 mm Hg (80.0-90.0) H 04/06/19 05:20 ABG HCO3 22.6 mmol/L (20.0-26.0) 04/06/19 05:20 ABG O2 Saturation 97.8 % (95.0-99.0) 04/06/19 05:20 Calcium 7.3 mg/dL (8.4-10.2) L 04/06/19 04:44 Phosphorus 5.80 mg/dL (2.5-4.5) H D 04/03/19 08:30 Magnesium 1.90 mg/dL (1.7-2.3) 03/31/19 15:07 Urine Creatinine 106.6 mg/dL (0.1-20.0) H 03/17/19 16:05 Urine Sodium 95 mmol/L 03/17/19 16:05 Medications & Allergies - Medications Allergies/Adverse Reactions: Allergies No Known Allergies Allergy (Unverified 03/16/19 17:17) Home Medications: Home Medications Medication Instructions Recorded Confirmed Last Taken Type Unobtainable 03/18/19 03/18/19 Unknown History Active Medications: Generic Name Dose Route Start Last Admin Trade Name Freq PRN Reason Stop Dose Admin Acetaminophen 650 mg 04/02/19 23:26 04/06/19 00:22 Tylenol PO 650 mg Q4H PRN Administration Pain, Mild (1-3),temp>100.5 Albuterol 2.5 mg 03/29/19 13:08 Proventil IH Q4HRT PRN Shortness Of Breath Amiodarone HCl 400 mg 04/04/19 12:00 04/05/19 19:45 Cordarone PO 400 mg TID PAOLO Administration Lipase/Protease/Amylase 1 each 03/17/19 14:[address] 10,500 Unit FEEDTUBE PRN PRN For Clogged Feeding Tube Calcium Acetate 1,334 mg 03/31/19 14:00 04/05/19 19:45 Phoslo PO 1,334 mg TID PAOLO Administration Dextrose 50 gm 03/19/19 18:39 03/26/19 23:26 D50w (25gm) Vial IV 50 gm PRN PRN Administration Hypoglycemia Epoetin Jet 20,000 unit 03/31/19 10:15 04/04/19 19:15 Procrit SUB-Q 20,000 unit NEYMAR PRN Administration hemodialysis Fentanyl 50 mcg 03/26/19 12:00 04/05/19 14:47 Sublimaze IV 50 mcg Q1H PRN Administration Pain, Moderate (4-6) Hydrophilic Ointment 1 applic 03/16/19 15:50 Vaseline Lip Therapy TP Q2HR PRN Dry Lips Phenylephrine HCl 100 mg/ 100 mls @ 3 mls/hr 03/17/19 02:30 03/19/19 18:48 Sodium Chloride IV Infused TITR PAOLO Titration Protocol 50 MCG/MIN Norepinephrine 4 mg in 250 mls @ 7.5 mls/hr 03/27/19 22:16 04/03/19 15:00 Levophed Drip 4 Mg/Ns 250 Ml IV 0 mcg/min TITR PAOLO 0 mls/hr Titration Protocol 2 MCG/MIN Vasopressin 20 unit/ Sodium 101 mls @ 9.09 mls/hr 03/28/19 09:00 04/03/19 00:00 Chloride IV 0 units/min TITR PAOLO 0 mls/hr Titration Protocol 0.03 UNITS/MIN Sodium Chloride 100 mls @ 999 mls/hr 04/04/19 10:00 Nacl 0.9% IV NEYMAR PRN Hypotension Lorazepam 2 mg 03/26/19 11:54 04/05/19 17:55 Ativan IV 2 mg Q1H PRN Administration Agitation Metoclopramide HCl 5 mg 04/02/19 18:00 04/06/19 05:51 Reglan IV 04/07/19 23:59 5 mg Q6HR PAOLO Administration Metoprolol Tartrate 12.5 mg 04/05/19 10:00 04/06/19 03:49 Lopressor PO Not Given Q6H PAOLO Multi-Ingred Cream/Lotion/Oil/Oint 1 applic 03/16/19 15:50 03/19/19 20:10 Artificial Tears Ophth Oint OU 1 applic Q4HR PRN Administration Dry Eye(s) Ondansetron HCl 4 mg 03/16/19 22:21 Zofran IV Q8H PRN Nausea And Vomiting Pantoprazole Sodium 40 mg 04/04/19 22:00 04/05/19 21:30 Protonix IV 40 mg BID PAOLO Administration Paricalcitol 2 mcg 03/30/19 10:00 04/05/19 10:52 Zemplar IV 2 mcg DAILY PAOLO Administration Simple Syrup 15 ml 03/17/19 14:45 03/26/19 23:19 Simple Syrup FEEDTUBE 15 ml PRN PRN Administration Hypoglycemia Simple Syrup 30 ml 03/17/19 14:45 Simple Syrup FEEDTUBE PRN PRN Hypoglycemia Sodium Bicarbonate 325 mg 03/17/19 14:45 Sodium Bicarbonate FEEDTUBE PRN PRN For Clogged Feeding Tube
[2019-04-06] MEDS: EPOETIN ALFA 20,000 UNIT/1 ML INJ SUB-Q PRN (10:41)
--- NOTE | 2019-04-06 10:47 | Progress Note ---
Assessment and Plan Severe sepsis with shock. Right axilla abscess versus localized pannus/fatty collection. Acute hypoxemic respiratory failure, on mechanical ventilator support. Likely aspiration pneumonia, bilateral. Morbid obesity. Acute kidney injury secondary to ATN on HD. Leukocytosis-resolved Elevated serum transaminases/possible shock liver. Acute encephalopathy, toxic metabolic Thrombocytopenia- etiology, multifactorial- improving RIJ non-occlusive thrombus Oropharyngeal dysphagia Acute blood loss anemia with hemorrhagic shock- resolved -SBT today PSV and titrate to Tidal volumes >350 -wean FiO2 for O2 sats>92% -continue reglan , advance tube feeding as tolerated -Continue Seroquel 50mg qhs to help with agitation. -Monitor QTc as he is on multiple medications that can prolong QT - continue HD/UF per nephrology - VAP bundle addressed -Aspiration precautions, HOB >40 - continue daily SAT's and SBT assessment as tolerated - prn analgesia per CPOT score - prn supportive blood transfusions to keep HgB > 7.0 - Monitor hemodynamics closely - continue mobility protocols and off loading as tolerated for pressure ulcer prevention - continue to avoid nephrotoxins, adjust all medications for GFR and CRCL - continue GI & VTE prophylaxis ( SCDs and therapeutic pantoprazole, dosed for renal function) - accuchecks with glycemic control per SSI for target BG of 140-180 mg/dl -PT/OT to evalaute and treat -Conitnue to maintain sleep-wake cycle - continue other care per attending / other consultants CONDITION: CRITICAL PROGNOSIS: GUARDED CODE STATUS: DNAR Discussed extensively with RT/RN/ICU-IDT Discussed with his brother, updated him The high probability of a clinically significant, sudden or life threatening deterioration of the [respiratory, renal, neurologic and Cardiac] systems required my full and direct attention, intervention and personal management. The aggregate critical care time was 30 minutes. This time is in addition to time spent performing reported procedures but includes the following: [x] Data Review and interpretation [x] Patient assessment and monitoring of vital signs [x] Documentation [x] Medication orders and management Subjective Date of service: 04/06/19 Principal diagnosis: anemia - IJ DVT Interval history: Patient is seen today for: Severe sepsis with shock; Acute hypoxemic respiratory failure; Aspiration pneumonia; Morbid obesity; Rhabdomyolysis; Acute kidney injury; Morbid obesity; Elevated serum transaminases/possible shock liver; Acute encephalopathy (Toxic/Met) Seen and examined at bedside; 24hour events reviewed; nursing and respiratory c are staff consulted; no adverse overnight events reported to me; resting peacefully in bed; remains off vasopressors; remains critically ill on MVS; Tolerating tube feedings and advancing; Off fentanyl infusion, with prn dosing as needed. Awake and alert, obeying simple commands Vitals, labs, medications, chart and imaging reviewed. On full MVS AC 25/500/6/35% Objective Vital Signs - 12hr 04/05/19 04/05/19 04/05/19 23:00 23:30 23:39 Temperature 102.7 F H Pulse Rate 99 H 96 H Pulse Rate [ From Monitor] Respiratory 28 H 24 Rate Blood Pressure 135/79 128/72 O2 Sat by Pulse 100 100 Oximetry 04/06/19 04/06/19 04/06/19 00:00 00:05 00:30 Temperature Pulse Rate 91 H 90 88 Pulse Rate [ 89 From Monitor] Respiratory 22 21 Rate Blood Pressure 115/62 115/62 126/71 O2 Sat by Pulse 97 100 100 Oximetry 04/06/19 04/06/19 04/06/19 01:00 01:30 02:00 Temperature Pulse Rate 82 80 81 Pulse Rate [ From Monitor] Respiratory 15 15 16 Rate Blood Pressure 114/62 117/59 116/64 O2 Sat by Pulse 100 100 100 Oximetry 04/06/19 04/06/19 04/06/19 02:30 03:00 03:30 Temperature Pulse Rate 82 78 79 Pulse Rate [ From Monitor] Respiratory 13 15 15 Rate Blood Pressure 117/68 116/61 102/56 O2 Sat by Pulse 100 100 100 Oximetry 04/06/19 04/06/19 04/06/19 03:49 03:53 04:00 Temperature 98.8 F Pulse Rate 80 77 Pulse Rate [ 76 From Monitor] Respiratory 19 Rate Blood Pressure 102/56 96/50 O2 Sat by Pulse 97 Oximetry 04/06/19 04/06/19 04/06/19 04:30 05:00 05:11 Temperature Pulse Rate 78 73 74 Pulse Rate [ From Monitor] Respiratory 12 17 Rate Blood Pressure 103/57 99/48 99/48 O2 Sat by Pulse 100 93 100 Oximetry 04/06/19 04/06/19 04/06/19 05:30 06:00 06:30 Temperature Pulse Rate 74 74 73 Pulse Rate [ From Monitor] Respiratory 19 19 16 Rate Blood Pressure 100/46 103/55 107/55 O2 Sat by Pulse 94 100 100 Oximetry 04/06/19 04/06/19 04/06/19 07:00 07:27 07:55 Temperature Pulse Rate 76 81 81 Pulse Rate [ From Monitor] Respiratory 18 Rate Blood Pressure 110/55 111/58 110/65 O2 Sat by Pulse 100 100 Oximetry 04/06/19 04/06/19 04/06/19 08:00 08:15 08:30 Temperature Pulse Rate 78 76 77 Pulse Rate [ 112 H From Monitor] Respiratory 18 Rate Blood Pressure 112/62 102/56 105/56 O2 Sat by Pulse 98 Oximetry 04/06/19 04/06/19 04/06/19 08:45 09:00 09:15 Temperature Pulse Rate 98 H 104 H 112 H Pulse Rate [ From Monitor] Respiratory Rate Blood Pressure 90/51 92/62 100/58 O2 Sat by Pulse Oximetry 04/06/19 04/06/19 04/06/19 09:30 09:45 10:00 Temperature Pulse Rate 115 H 107 H 115 H Pulse Rate [ From Monitor] Respiratory Rate Blood Pressure 105/66 108/66 107/57 O2 Sat by Pulse Oximetry Constitutional: no acute distress, alert, other (middle aged morbidly obese CM, normocephalic with incresed respiratory effort on MVS) Eyes: icteric ENT: oropharynx moist, other (ETT 23-24 cm PEDRO, ulcers over his upper lip) Neck: supple, no lymphadenopathy, no JVD, other (large neck circumference) Effort: mildly labored Ascultation: Bilateral: diminished breath sounds, rales Percussion: Bilateral: not dull Cardiovascular: irregular rhythm, other ( S1,S2) Gastrointestinal: normoactive bowel sounds, soft, non-tender Integumentary: normal, other (blisters with some weeping over the extremities) Extremities: no cyanosis, pink and warm, pulses normal, no ischemia or petechiae Neurologic: normal mental status, non-focal exam (grossly), pupils equal and round, other (obeys simple commands) Psychiatric: mood appropriate, affect normal CBC and BMP: 04/07/19 05:40 04/07/19 05:40 ABG, PT/INR, D-dimer: ABG POC ABG pH 7.423 (7.35-7.45) 04/05/19 12:06 ABG pH 7.388 pH Units (7.350-7.450) 04/06/19 05:20 POC ABG pCO2 39.1 (35-45) 04/05/19 12:06 ABG pCO2 38.5 mm Hg 04/06/19 05:20 POC ABG pO2 98 (80-105) 04/05/19 12:06 ABG pO2 104.0 mm Hg (80.0-90.0) H 04/06/19 05:20 POC ABG HCO3 25.5 (22-26 mml/L) 04/05/19 12:06 POC ABG Total CO2 27 (23-27mmol/L) 04/05/19 12:06 POC ABG O2 Sat 98 04/05/19 12:06 ABG O2 Saturation 97.8 % (95.0-99.0) 04/06/19 05:20 PT/INR, D-dimer PT 15.3 Sec. (12.2-14.9) H 03/29/19 11:48 INR 1.24 (0.87-1.13) H 03/29/19 11:48 D-Dimer 4845.98 ng/mlDDU (0-234) H 03/28/19 12:00 Abnormal lab findings: Abnormal Labs 03/16/19 03/16/19 03/16/19 15:32 16:03 16:05 WBC 27.0 H RBC 5.55 H Hgb 15.7 H Hct 47.1 H RDW Plt Count 75 L Lymph % (Auto) [place] % (Auto) Lymph # Seg Neutrophils % Seg Neuts % (Manual) 85.0 H Lymphocytes % (Manual) 2.0 L Monocytes % (Manual) Nucleated RBC % Seg Neutrophils # Seg Neutrophils # Man 23.0 H Lymphocytes # (Manual) 0.5 L Monocytes # (Manual) PT INR D-Dimer Heparin Anti-Xa Level POC ABG pH ABG pH POC ABG pCO2 POC ABG pO2 ABG pO2 ABG HCO3 ABG O2 Saturation ABG Base Excess ABG Hemoglobin Oxyhemoglobin Sodium 127 L Potassium Chloride 87.8 L Carbon Dioxide 17 L BUN 49 H Creatinine 5.8 H Glucose 150 H POC Glucose 118 H Lactic Acid Calcium 6.6 L Ionized Calcium Phosphorus Magnesium 1.10 L Iron TIBC Ferritin Total Bilirubin Direct Bilirubin AST ALT Alkaline Phosphatase Total Creatine Kinase 11579 H CK-MB (CK-2) Troponin T C-Reactive Protein Total Protein Albumin Triglycerides LDL Cholesterol Direct HDL Cholesterol Free T4 PTH Intact Urine WBC (Auto) Urine Creatinine Salicylates Acetaminophen Crossmatch 03/16/19 03/16/19 03/16/19 16:59 17:05 17:05 WBC RBC Hgb Hct RDW Plt Count Lymph % (Auto) [place] % (Auto) Lymph # Seg Neutrophils % Seg Neuts % (Manual) Lymphocytes % (Manual) Monocytes % (Manual) Nucleated RBC % Seg Neutrophils # Seg Neutrophils # Man Lymphocytes # (Manual) Monocytes # (Manual) PT INR D-Dimer Heparin Anti-Xa Level POC ABG pH 7.297 L ABG pH POC ABG pCO2 33.0 L POC ABG pO2 ABG pO2 ABG HCO3 ABG O2 Saturation ABG Base Excess ABG Hemoglobin Oxyhemoglobin Sodium Potassium Chloride Carbon Dioxide BUN Creatinine Glucose POC Glucose Lactic Acid Calcium Ionized Calcium Phosphorus Magnesium Iron TIBC Ferritin Total Bilirubin Direct Bilirubin AST ALT Alkaline Phosphatase Total Creatine Kinase 28065 H CK-MB (CK-2) 83.1 H Troponin T C-Reactive Protein Total Protein Albumin Triglycerides LDL Cholesterol Direct HDL Cholesterol Free T4 0.72 L PTH Intact Urine WBC (Auto) Urine Creatinine Salicylates Acetaminophen Crossmatch 03/16/19 03/16/19 03/16/19 17:05 17:05 17:05 WBC RBC Hgb Hct RDW Plt Count Lymph % (Auto) [place] % (Auto) Lymph # Seg Neutrophils % Seg Neuts % (Manual) Lymphocytes % (Manual) Monocytes % (Manual) Nucleated RBC % Seg Neutrophils # Seg Neutrophils # Man Lymphocytes # (Manual) Monocytes # (Manual) PT INR D-Dimer Heparin Anti-Xa Level POC ABG pH ABG pH POC ABG pCO2 POC ABG pO2 ABG pO2 ABG HCO3 ABG O2 Saturation ABG Base Excess ABG Hemoglobin Oxyhemoglobin Sodium Potassium Chloride Carbon Dioxide BUN Creatinine Glucose POC Glucose Lactic Acid 5.10 H* Calcium Ionized Calcium Phosphorus Magnesium Iron TIBC Ferritin Total Bilirubin Direct Bilirubin AST ALT Alkaline Phosphatase Total Creatine Kinase CK-MB (CK-2) Troponin T C-Reactive Protein Total Protein Albumin Triglycerides LDL Cholesterol Direct HDL Cholesterol Free T4 PTH Intact Urine WBC (Auto) Urine Creatinine Salicylates < 0.3 L Acetaminophen < 5.0 L Crossmatch 03/16/19 03/16/19 03/16/19 17:05 17:05 20:35 WBC RBC Hgb Hct RDW Plt Count Lymph % (Auto) [place] % (Auto) Lymph # Seg Neutrophils % Seg Neuts % (Manual) Lymphocytes % (Manual) Monocytes % (Manual) Nucleated RBC % Seg Neutrophils # Seg Neutrophils # Man Lymphocytes # (Manual) Monocytes # (Manual) PT 15.9 H INR 1.30 H D-Dimer Heparin Anti-Xa Level POC ABG pH ABG pH POC ABG pCO2 POC ABG pO2 ABG pO2 ABG HCO3 ABG O2 Saturation ABG Base Excess ABG Hemoglobin Oxyhemoglobin Sodium Potassium Chloride Carbon Dioxide BUN Creatinine Glucose POC Glucose Lactic Acid 3.30 H* Calcium Ionized Calcium Phosphorus Magnesium Iron TIBC Ferritin Total Bilirubin 6.20 H Direct Bilirubin 5.9 H AST 800 H ALT 120 H Alkaline Phosphatase Total Creatine Kinase CK-MB (CK-2) Troponin T C-Reactive Protein Total Protein 4.4 L Albumin 2.4 L Triglycerides LDL Cholesterol Direct HDL Cholesterol Free T4 PTH Intact Urine WBC (Auto) Urine Creatinine Salicylates Acetaminophen Crossmatch 03/16/19 03/16/19 03/16/19 21:45 22:32 Unknown WBC RBC Hgb Hct RDW Plt Count Lymph % (Auto) [place] % (Auto) Lymph # Seg Neutrophils % Seg Neuts % (Manual) Lymphocytes % (Manual) Monocytes % (Manual) Nucleated RBC % Seg Neutrophils # Seg Neutrophils # Man Lymphocytes # (Manual) Monocytes # (Manual) PT INR D-Dimer Heparin Anti-Xa Level POC ABG pH ABG pH POC ABG pCO2 POC ABG pO2 ABG pO2 ABG HCO3 ABG O2 Saturation ABG Base Excess ABG Hemoglobin Oxyhemoglobin Sodium Potassium Chloride Carbon Dioxide BUN Creatinine Glucose POC Glucose Lactic Acid 3.30 H* 3.00 H* Calcium Ionized Calcium Phosphorus Magnesium Iron TIBC Ferritin Total Bilirubin Direct Bilirubin AST ALT Alkaline Phosphatase Total Creatine Kinase CK-MB (CK-2) Troponin T 0.047 H D C-Reactive Protein Total Protein Albumin Triglycerides 395 H LDL Cholesterol Direct 10 L HDL Cholesterol 7 L Free T4 PTH Intact Urine WBC (Auto) Urine Creatinine Salicylates Acetaminophen Crossmatch 03/17/19 03/17/19 03/17/19 03:45 03:45 03:45 WBC RBC Hgb Hct RDW Plt Count Lymph % (Auto) [place] % (Auto) Lymph # Seg Neutrophils % Seg Neuts % (Manual) Lymphocytes % (Manual) Monocytes % (Manual) Nucleated RBC % Seg Neutrophils # Seg Neutrophils # Man Lymphocytes # (Manual) Monocytes # (Manual) PT INR D-Dimer Heparin Anti-Xa Level POC ABG pH ABG pH POC ABG pCO2 POC ABG pO2 ABG pO2 ABG HCO3 ABG O2 Saturation ABG Base Excess ABG Hemoglobin Oxyhemoglobin Sodium 131 L Potassium Chloride 88.9 L Carbon Dioxide BUN 53 H Creatinine 7.1 H Glucose POC Glucose Lactic Acid 4.10 H* Calcium 5.4 L* D Ionized Calcium Phosphorus 7.30 H Magnesium 1.60 L Iron TIBC Ferritin Total Bilirubin 5.90 H Direct Bilirubin AST 801 H ALT 109 H Alkaline Phosphatase Total Creatine Kinase 90174 H 54342 H CK-MB (CK-2) 41.5 H Troponin T 0.054 H C-Reactive Protein Total Protein 4.5 L Albumin 2.0 L Triglycerides LDL Cholesterol Direct HDL Cholesterol Free T4 PTH Intact Urine WBC (Auto) Urine Creatinine Salicylates Acetaminophen Crossmatch 03/17/19 03/17/19 03/17/19 05:47 07:16 07:16 WBC RBC Hgb Hct RDW Plt Count Lymph % (Auto) [place] % (Auto) Lymph # Seg Neutrophils % Seg Neuts % (Manual) Lymphocytes % (Manual) Monocytes % (Manual) Nucleated RBC % Seg Neutrophils # Seg Neutrophils # Man Lymphocytes # (Manual) Monocytes # (Manual) PT INR D-Dimer Heparin Anti-Xa Level POC ABG pH 7.193 L ABG pH POC ABG pCO2 45.2 H POC ABG pO2 65 L ABG pO2 ABG HCO3 ABG O2 Saturation ABG Base Excess ABG Hemoglobin Oxyhemoglobin Sodium Potassium Chloride Carbon Dioxide BUN Creatinine Glucose POC Glucose Lactic Acid 5.50 H* Calcium Ionized Calcium Phosphorus Magnesium Iron TIBC Ferritin Total Bilirubin Direct Bilirubin AST ALT Alkaline Phosphatase Total Creatine Kinase 49723 H CK-MB (CK-2) 54.3 H Troponin T 0.058 H C-Reactive Protein Total Protein Albumin Triglycerides LDL Cholesterol Direct HDL Cholesterol Free T4 PTH Intact Urine WBC (Auto) Urine Creatinine Salicylates Acetaminophen Crossmatch 03/17/19 03/17/19 03/17/19 11:52 12:51 13:01 WBC RBC Hgb Hct RDW Plt Count Lymph % (Auto) [place] % (Auto) Lymph # Seg Neutrophils % Seg Neuts % (Manual) Lymphocytes % (Manual) Monocytes % (Manual) Nucleated RBC % Seg Neutrophils # Seg Neutrophils # Man Lymphocytes # (Manual) Monocytes # (Manual) PT INR D-Dimer Heparin Anti-Xa Level POC ABG pH 7.154 L ABG pH POC ABG pCO2 34.3 L POC ABG pO2 73 L ABG pO2 ABG HCO3 ABG O2 Saturation ABG Base Excess ABG Hemoglobin Oxyhemoglobin Sodium Potassium Chloride Carbon Dioxide BUN Creatinine Glucose POC Glucose 60 L Lactic Acid 8.20 H* Calcium Ionized Calcium Phosphorus Magnesium Iron TIBC Ferritin Total Bilirubin Direct Bilirubin AST ALT Alkaline Phosphatase Total Creatine Kinase CK-MB (CK-2) Troponin T C-Reactive Protein Total Protein Albumin Triglycerides LDL Cholesterol Direct HDL Cholesterol Free T4 PTH Intact Urine WBC (Auto) Urine Creatinine Salicylates Acetaminophen Crossmatch 03/17/19 03/17/19 03/17/19 14:37 14:37 14:37 WBC 29.3 H RBC Hgb Hct RDW 15.8 H Plt Count 45 L Lymph % (Auto) [place] % (Auto) Lymph # Seg Neutrophils % Seg Neuts % (Manual) 81.0 H Lymphocytes % (Manual) 1.0 L Monocytes % (Manual) 15.0 H Nucleated RBC % Seg Neutrophils # Seg Neutrophils # Man 23.7 H Lymphocytes # (Manual) 0.3 L Monocytes # (Manual) 4.4 H PT INR D-Dimer Heparin Anti-Xa Level POC ABG pH ABG pH POC ABG pCO2 POC ABG pO2 ABG pO2 ABG HCO3 ABG O2 Saturation ABG Base Excess ABG Hemoglobin Oxyhemoglobin Sodium Potassium Chloride Carbon Dioxide BUN Creatinine Glucose POC Glucose Lactic Acid 4.90 H* Calcium Ionized Calcium Phosphorus Magnesium Iron TIBC Ferritin Total Bilirubin Direct Bilirubin AST ALT Alkaline Phosphatase Total Creatine Kinase CK-MB (CK-2) Troponin T C-Reactive Protein 24.90 H Total Protein Albumin Triglycerides LDL Cholesterol Direct HDL Cholesterol Free T4 PTH Intact Urine WBC (Auto) Urine Creatinine Salicylates Acetaminophen Crossmatch 03/17/19 03/17/19 03/17/19 16:05 16:05 17:02 WBC RBC Hgb Hct RDW Plt Count Lymph % (Auto) [place] % (Auto) Lymph # Seg Neutrophils % Seg Neuts % (Manual) Lymphocytes % (Manual) Monocytes % (Manual) Nucleated RBC % Seg Neutrophils # Seg Neutrophils # Man Lymphocytes # (Manual) Monocytes # (Manual) PT INR D-Dimer Heparin Anti-Xa Level POC ABG pH 7.183 L ABG pH POC ABG pCO2 POC ABG pO2 65 L ABG pO2 ABG HCO3 ABG O2 Saturation ABG Base Excess ABG Hemoglobin Oxyhemoglobin Sodium Potassium Chloride Carbon Dioxide BUN Creatinine Glucose POC Glucose Lactic Acid Calcium Ionized Calcium Phosphorus Magnesium Iron TIBC Ferritin Total Bilirubin Direct Bilirubin AST ALT Alkaline Phosphatase Total Creatine Kinase CK-MB (CK-2) Troponin T C-Reactive Protein Total Protein Albumin Triglycerides LDL Cholesterol Direct HDL Cholesterol Free T4 PTH Intact Urine WBC (Auto) 30.0 H Urine Creatinine 106.6 H Salicylates Acetaminophen Crossmatch 03/18/19 03/18/19 03/18/19 05:12 05:16 05:53 WBC RBC Hgb Hct RDW Plt Count Lymph % (Auto) [place] % (Auto) Lymph # Seg Neutrophils % Seg Neuts % (Manual) Lymphocytes % (Manual) Monocytes % (Manual) Nucleated RBC % Seg Neutrophils # Seg Neutrophils # Man Lymphocytes # (Manual) Monocytes # (Manual) PT INR D-Dimer Heparin Anti-Xa Level POC ABG pH 7.257 L ABG pH POC ABG pCO2 31.6 L POC ABG pO2 69 L ABG pO2 ABG HCO3 ABG O2 Saturation ABG Base Excess ABG Hemoglobin Oxyhemoglobin Sodium Potassium Chloride Carbon Dioxide BUN Creatinine Glucose POC Glucose 141 H Lactic Acid 5.00 H* Calcium Ionized Calcium Phosphorus Magnesium Iron TIBC Ferritin Total Bilirubin Direct Bilirubin AST ALT Alkaline Phosphatase Total Creatine Kinase CK-MB (CK-2) Troponin T C-Reactive Protein Total Protein Albumin Triglycerides LDL Cholesterol Direct HDL Cholesterol Free T4 PTH Intact Urine WBC (Auto) Urine Creatinine Salicylates Acetaminophen Crossmatch 03/18/19 03/18/19 03/18/19 06:57 08:40 08:40 WBC 31.7 H RBC Hgb Hct RDW 15.5 H Plt Count 35 L Lymph % (Auto) [place] % (Auto) Lymph # Seg Neutrophils % Seg Neuts % (Manual) Lymphocytes % (Manual) Monocytes % (Manual) Nucleated RBC % Seg Neutrophils # Seg Neutrophils # Man Lymphocytes # (Manual) Monocytes # (Manual) PT INR D-Dimer Heparin Anti-Xa Level POC ABG pH ABG pH POC ABG pCO2 POC ABG pO2 ABG pO2 ABG HCO3 ABG O2 Saturation ABG Base Excess ABG Hemoglobin Oxyhemoglobin Sodium 132 L Potassium 5.5 H D Chloride 88.5 L Carbon Dioxide 18 L BUN 71 H Creatinine 8.1 H Glucose 205 H POC Glucose Lactic Acid 5.00 H* Calcium 4.1 L* D Ionized Calcium Phosphorus Magnesium 2.40 H Iron TIBC Ferritin Total Bilirubin 7.50 H Direct Bilirubin AST 1088 H ALT 159 H Alkaline Phosphatase 190 H Total Creatine Kinase 880212 H CK-MB (CK-2) Troponin T C-Reactive Protein Total Protein 4.7 L Albumin 1.8 L Triglycerides LDL Cholesterol Direct HDL Cholesterol Free T4 PTH Intact Urine WBC (Auto) Urine Creatinine Salicylates Acetaminophen Crossmatch 03/18/19 03/18/19 03/18/19 12:33 12:50 13:19 WBC RBC Hgb Hct RDW Plt Count Lymph % (Auto) [place] % (Auto) Lymph # Seg Neutrophils % Seg Neuts % (Manual) Lymphocytes % (Manual) Monocytes % (Manual) Nucleated RBC % Seg Neutrophils # Seg Neutrophils # Man Lymphocytes # (Manual) Monocytes # (Manual) PT INR D-Dimer Heparin Anti-Xa Level POC ABG pH 7.282 L ABG pH POC ABG pCO2 POC ABG pO2 67 L ABG pO2 ABG HCO3 ABG O2 Saturation ABG Base Excess ABG Hemoglobin Oxyhemoglobin Sodium Potassium Chloride Carbon Dioxide BUN Creatinine Glucose POC Glucose 129 H Lactic Acid 3.30 H* Calcium Ionized Calcium Phosphorus Magnesium Iron TIBC Ferritin Total Bilirubin Direct Bilirubin AST ALT Alkaline Phosphatase Total Creatine Kinase CK-MB (CK-2) Troponin T C-Reactive Protein Total Protein Albumin Triglycerides LDL Cholesterol Direct HDL Cholesterol Free T4 PTH Intact Urine WBC (Auto) Urine Creatinine Salicylates Acetaminophen Crossmatch 03/18/19 03/18/19 03/18/19 13:19 16:50 18:11 WBC RBC Hgb Hct RDW Plt Count Lymph % (Auto) [place] % (Auto) Lymph # Seg Neutrophils % Seg Neuts % (Manual) Lymphocytes % (Manual) Monocytes % (Manual) Nucleated RBC % Seg Neutrophils # Seg Neutrophils # Man Lymphocytes # (Manual) Monocytes # (Manual) PT INR D-Dimer Heparin Anti-Xa Level POC ABG pH ABG pH POC ABG pCO2 POC ABG pO2 59 L ABG pO2 ABG HCO3 ABG O2 Saturation ABG Base Excess ABG Hemoglobin Oxyhemoglobin Sodium Potassium Chloride Carbon Dioxide BUN Creatinine Glucose POC Glucose 151 H Lactic Acid Calcium 4.2 L* Ionized Calcium Phosphorus Magnesium Iron TIBC Ferritin Total Bilirubin Direct Bilirubin AST ALT Alkaline Phosphatase Total Creatine Kinase 555585 H CK-MB (CK-2) Troponin T C-Reactive Protein Total Protein Albumin Triglycerides LDL Cholesterol Direct HDL Cholesterol Free T4 PTH Intact Urine WBC (Auto) Urine Creatinine Salicylates Acetaminophen Crossmatch 03/18/19 03/18/19 03/19/19 18:20 23:39 01:42 WBC RBC Hgb Hct RDW Plt Count Lymph % (Auto) [place] % (Auto) Lymph # Seg Neutrophils % Seg Neuts % (Manual) Lymphocytes % (Manual) Monocytes % (Manual) Nucleated RBC % Seg Neutrophils # Seg Neutrophils # Man Lymphocytes # (Manual) Monocytes # (Manual) PT INR D-Dimer Heparin Anti-Xa Level POC ABG pH 7.345 L ABG pH 7.285 L POC ABG pCO2 POC ABG pO2 59 L ABG pO2 44.0 L ABG HCO3 ABG O2 Saturation 70.9 L ABG Base Excess -5.7 L ABG Hemoglobin 11.9 L Oxyhemoglobin 69.6 L Sodium Potassium Chloride Carbon Dioxide BUN Creatinine Glucose POC Glucose 152 H Lactic Acid Calcium Ionized Calcium Phosphorus Magnesium Iron TIBC Ferritin Total Bilirubin Direct Bilirubin AST ALT Alkaline Phosphatase Total Creatine Kinase CK-MB (CK-2) Troponin T C-Reactive Protein Total Protein Albumin Triglycerides LDL Cholesterol Direct HDL Cholesterol Free T4 PTH Intact Urine WBC (Auto) Urine Creatinine Salicylates Acetaminophen Crossmatch 03/19/19 03/19/19 03/19/19 04:00 04:00 05:35 WBC 36.5 H RBC Hgb Hct RDW 15.8 H Plt Count 35 L Lymph % (Auto) [place] % (Auto) Lymph # Seg Neutrophils % Seg Neuts % (Manual) Lymphocytes % (Manual) Monocytes % (Manual) Nucleated RBC % Seg Neutrophils # Seg Neutrophils # Man Lymphocytes # (Manual) Monocytes # (Manual) PT INR D-Dimer Heparin Anti-Xa Level POC ABG pH ABG pH 7.265 L POC ABG pCO2 POC ABG pO2 ABG pO2 35.4 L* ABG HCO3 ABG O2 Saturation 54.4 L ABG Base Excess -6.7 L ABG Hemoglobin 12.9 L Oxyhemoglobin 53.4 L Sodium 132 L Potassium 5.7 H Chloride 89.8 L Carbon Dioxide 19 L BUN 62 H Creatinine 6.4 H Glucose 151 H POC Glucose Lactic Acid Calcium 5.2 L* D Ionized Calcium Phosphorus Magnesium Iron TIBC Ferritin Total Bilirubin 7.80 H Direct Bilirubin AST 682 H ALT 130 H Alkaline Phosphatase 167 H Total Creatine Kinase CK-MB (CK-2) Troponin T C-Reactive Protein Total Protein 4.8 L Albumin 2.3 L Triglycerides LDL Cholesterol Direct HDL Cholesterol Free T4 PTH Intact Urine WBC (Auto) Urine Creatinine Salicylates Acetaminophen Crossmatch 03/19/19 03/19/19 03/19/19 05:49 09:16 09:50 WBC RBC Hgb Hct RDW Plt Count Lymph % (Auto) [place] % (Auto) Lymph # Seg Neutrophils % Seg Neuts % (Manual) Lymphocytes % (Manual) Monocytes % (Manual) Nucleated RBC % Seg Neutrophils # Seg Neutrophils # Man Lymphocytes # (Manual) Monocytes # (Manual) PT INR D-Dimer Heparin Anti-Xa Level POC ABG pH 7.222 L ABG pH POC ABG pCO2 56.6 H POC ABG pO2 ABG pO2 ABG HCO3 ABG O2 Saturation ABG Base Excess ABG Hemoglobin Oxyhemoglobin Sodium Potassium Chloride Carbon Dioxide BUN Creatinine Glucose POC Glucose 154 H Lactic Acid 2.70 H* Calcium Ionized Calcium Phosphorus Magnesium Iron TIBC Ferritin Total Bilirubin Direct Bilirubin AST ALT Alkaline Phosphatase Total Creatine Kinase CK-MB (CK-2) Troponin T C-Reactive Protein Total Protein Albumin Triglycerides LDL Cholesterol Direct HDL Cholesterol Free T4 PTH Intact Urine WBC (Auto) Urine Creatinine Salicylates Acetaminophen Crossmatch 03/19/19 03/19/19 03/19/19 09:50 11:28 17:58 WBC RBC Hgb Hct RDW Plt Count Lymph % (Auto) [place] % (Auto) Lymph # Seg Neutrophils % Seg Neuts % (Manual) Lymphocytes % (Manual) Monocytes % (Manual) Nucleated RBC % Seg Neutrophils # Seg Neutrophils # Man Lymphocytes # (Manual) Monocytes # (Manual) PT INR D-Dimer Heparin Anti-Xa Level POC ABG pH 7.250 L ABG pH POC ABG pCO2 52.6 H POC ABG pO2 ABG pO2 ABG HCO3 ABG O2 Saturation ABG Base Excess ABG Hemoglobin Oxyhemoglobin Sodium Potassium Chloride Carbon Dioxide BUN Creatinine Glucose POC Glucose 160 H Lactic Acid Calcium Ionized Calcium Phosphorus Magnesium Iron TIBC Ferritin Total Bilirubin Direct Bilirubin AST ALT Alkaline Phosphatase Total Creatine Kinase 63158 H CK-MB (CK-2) Troponin T C-Reactive Protein Total Protein Albumin Triglycerides LDL Cholesterol Direct HDL Cholesterol Free T4 PTH Intact Urine WBC (Auto) Urine Creatinine Salicylates Acetaminophen Crossmatch 03/19/19 03/19/19 03/20/19 19:48 21:03 02:16 WBC RBC Hgb Hct RDW Plt Count Lymph % (Auto) [place] % (Auto) Lymph # Seg Neutrophils % Seg Neuts % (Manual) Lymphocytes % (Manual) Monocytes % (Manual) Nucleated RBC % Seg Neutrophils # Seg Neutrophils # Man Lymphocytes # (Manual) Monocytes # (Manual) PT INR D-Dimer Heparin Anti-Xa Level POC ABG pH 7.279 L ABG pH POC ABG pCO2 50.3 H POC ABG pO2 129 H ABG pO2 ABG HCO3 ABG O2 Saturation ABG Base Excess ABG Hemoglobin Oxyhemoglobin Sodium Potassium Chloride Carbon Dioxide BUN Creatinine Glucose POC Glucose 119 H 119 H Lactic Acid Calcium Ionized Calcium Phosphorus Magnesium Iron TIBC Ferritin Total Bilirubin Direct Bilirubin AST ALT Alkaline Phosphatase Total Creatine Kinase CK-MB (CK-2) Troponin T C-Reactive Protein Total Protein Albumin Triglycerides LDL Cholesterol Direct HDL Cholesterol Free T4 PTH Intact Urine WBC (Auto) Urine Creatinine Salicylates Acetaminophen Crossmatch 03/20/19 03/20/19 03/20/19 04:23 05:05 09:30 WBC 36.3 H RBC Hgb Hct RDW 15.5 H Plt Count 29 L Lymph % (Auto) [place] % (Auto) Lymph # Seg Neutrophils % Seg Neuts % (Manual) Lymphocytes % (Manual) Monocytes % (Manual) Nucleated RBC % Seg Neutrophils # Seg Neutrophils # Man Lymphocytes # (Manual) Monocytes # (Manual) PT INR D-Dimer Heparin Anti-Xa Level POC ABG pH ABG pH POC ABG pCO2 POC ABG pO2 280 H ABG pO2 ABG HCO3 ABG O2 Saturation ABG Base Excess ABG Hemoglobin Oxyhemoglobin Sodium Potassium Chloride Carbon Dioxide BUN Creatinine Glucose POC Glucose 115 H Lactic Acid Calcium Ionized Calcium Phosphorus Magnesium Iron TIBC Ferritin Total Bilirubin Direct Bilirubin AST ALT Alkaline Phosphatase Total Creatine Kinase CK-MB (CK-2) Troponin T C-Reactive Protein Total Protein Albumin Triglycerides LDL Cholesterol Direct HDL Cholesterol Free T4 PTH Intact Urine WBC (Auto) Urine Creatinine Salicylates Acetaminophen Crossmatch 03/20/19 03/20/19 03/20/19 09:30 09:30 11:34 WBC RBC Hgb Hct RDW Plt Count Lymph % (Auto) [place] % (Auto) Lymph # Seg Neutrophils % Seg Neuts % (Manual) Lymphocytes % (Manual) Monocytes % (Manual) Nucleated RBC % Seg Neutrophils # Seg Neutrophils # Man Lymphocytes # (Manual) Monocytes # (Manual) PT INR D-Dimer Heparin Anti-Xa Level POC ABG pH ABG pH POC ABG pCO2 POC ABG pO2 ABG pO2 ABG HCO3 ABG O2 Saturation ABG Base Excess ABG Hemoglobin Oxyhemoglobin Sodium 131 L Potassium Chloride 92.3 L Carbon Dioxide 20 L BUN 68 H Creatinine 6.1 H Glucose 164 H POC Glucose 141 H Lactic Acid Calcium 5.3 L* Ionized Calcium Phosphorus Magnesium Iron TIBC Ferritin Total Bilirubin 9.50 H Direct Bilirubin AST 381 H ALT 116 H Alkaline Phosphatase 255 H Total Creatine Kinase 62029 H CK-MB (CK-2) Troponin T C-Reactive Protein Total Protein 5.1 L Albumin 2.3 L Triglycerides LDL Cholesterol Direct HDL Cholesterol Free T4 PTH Intact Urine WBC (Auto) Urine Creatinine Salicylates Acetaminophen Crossmatch 03/20/19 03/20/19 03/20/19 14:41 14:45 18:50 WBC RBC Hgb Hct RDW Plt Count Lymph % (Auto) [place] % (Auto) Lymph # Seg Neutrophils % Seg Neuts % (Manual) Lymphocytes % (Manual) Monocytes % (Manual) Nucleated RBC % Seg Neutrophils # Seg Neutrophils # Man Lymphocytes # (Manual) Monocytes # (Manual) PT INR D-Dimer Heparin Anti-Xa Level POC ABG pH ABG pH POC ABG pCO2 POC ABG pO2 ABG pO2 ABG HCO3 ABG O2 Saturation ABG Base Excess ABG Hemoglobin Oxyhemoglobin Sodium Potassium Chloride Carbon Dioxide BUN Creatinine Glucose POC Glucose 117 H Lactic Acid 2.90 H* Calcium Ionized Calcium Phosphorus Magnesium Iron TIBC Ferritin Total Bilirubin Direct Bilirubin AST ALT Alkaline Phosphatase Total Creatine Kinase CK-MB (CK-2) Troponin T C-Reactive Protein 13.30 H Total Protein Albumin Triglycerides LDL Cholesterol Direct HDL Cholesterol Free T4 PTH Intact Urine WBC (Auto) Urine Creatinine Salicylates Acetaminophen Crossmatch 03/20/19 03/21/19 03/21/19 21:55 04:26 04:26 WBC 37.8 H RBC Hgb Hct RDW 15.4 H Plt Count 36 L Lymph % (Auto) [place] % (Auto) Lymph # Seg Neutrophils % Seg Neuts % (Manual) 93.0 H Lymphocytes % (Manual) 3.0 L Monocytes % (Manual) Nucleated RBC % 1.0 H Seg Neutrophils # 34.6 H Seg Neutrophils # Man 35.2 H Lymphocytes # (Manual) 1.1 L Monocytes # (Manual) PT INR D-Dimer Heparin Anti-Xa Level POC ABG pH ABG pH POC ABG pCO2 POC ABG pO2 ABG pO2 ABG HCO3 ABG O2 Saturation ABG Base Excess ABG Hemoglobin Oxyhemoglobin Sodium 131 L Potassium Chloride 90.7 L Carbon Dioxide 21 L BUN 69 H Creatinine 5.7 H Glucose 170 H POC Glucose 128 H Lactic Acid Calcium 6.1 L D Ionized Calcium Phosphorus Magnesium Iron TIBC Ferritin Total Bilirubin 9.50 H Direct Bilirubin AST 308 H ALT 124 H Alkaline Phosphatase 327 H Total Creatine Kinase 57112 H CK-MB (CK-2) Troponin T C-Reactive Protein Total Protein 5.7 L Albumin 2.6 L Triglycerides LDL Cholesterol Direct HDL Cholesterol Free T4 PTH Intact Urine WBC (Auto) Urine Creatinine Salicylates Acetaminophen Crossmatch 03/21/19 03/21/19 03/21/19 05:17 05:39 08:29 WBC RBC Hgb Hct RDW Plt Count Lymph % (Auto) [place] % (Auto) Lymph # Seg Neutrophils % Seg Neuts % (Manual) Lymphocytes % (Manual) Monocytes % (Manual) Nucleated RBC % Seg Neutrophils # Seg Neutrophils # Man Lymphocytes # (Manual) Monocytes # (Manual) PT INR D-Dimer Heparin Anti-Xa Level POC ABG pH ABG pH POC ABG pCO2 POC ABG pO2 209 H ABG pO2 ABG HCO3 ABG O2 Saturation ABG Base Excess ABG Hemoglobin Oxyhemoglobin Sodium Potassium Chloride Carbon Dioxide BUN Creatinine Glucose POC Glucose 145 H Lactic Acid Calcium Ionized Calcium Phosphorus Magnesium Iron TIBC Ferritin Total Bilirubin Direct Bilirubin AST ALT Alkaline Phosphatase Total Creatine Kinase 21855 H CK-MB (CK-2) Troponin T C-Reactive Protein Total Protein Albumin Triglycerides LDL Cholesterol Direct HDL Cholesterol Free T4 PTH Intact Urine WBC (Auto) Urine Creatinine Salicylates Acetaminophen Crossmatch 03/21/19 03/21/19 03/21/19 08:29 11:43 12:00 WBC RBC Hgb Hct RDW Plt Count Lymph % (Auto) [place] % (Auto) Lymph # Seg Neutrophils % Seg Neuts % (Manual) Lymphocytes % (Manual) Monocytes % (Manual) Nucleated RBC % Seg Neutrophils # Seg Neutrophils # Man Lymphocytes # (Manual) Monocytes # (Manual) PT INR D-Dimer Heparin Anti-Xa Level POC ABG pH ABG pH POC ABG pCO2 POC ABG pO2 ABG pO2 ABG HCO3 ABG O2 Saturation ABG Base Excess ABG Hemoglobin Oxyhemoglobin Sodium Potassium Chloride Carbon Dioxide BUN Creatinine Glucose POC Glucose 123 H Lactic Acid 2.60 H* 2.20 H* Calcium Ionized Calcium Phosphorus Magnesium Iron TIBC Ferritin Total Bilirubin Direct Bilirubin AST ALT Alkaline Phosphatase Total Creatine Kinase CK-MB (CK-2) Troponin T C-Reactive Protein Total Protein Albumin Triglycerides LDL Cholesterol Direct HDL Cholesterol Free T4 PTH Intact Urine WBC (Auto) Urine Creatinine Salicylates Acetaminophen Crossmatch 03/21/19 03/21/19 03/21/19 14:11 18:28 19:32 WBC RBC Hgb Hct RDW Plt Count Lymph % (Auto) [place] % (Auto) Lymph # Seg Neutrophils % Seg Neuts % (Manual) Lymphocytes % (Manual) Monocytes % (Manual) Nucleated RBC % Seg Neutrophils # Seg Neutrophils # Man Lymphocytes # (Manual) Monocytes # (Manual) PT INR D-Dimer Heparin Anti-Xa Level POC ABG pH 7.293 L ABG pH POC ABG pCO2 POC ABG pO2 ABG pO2 ABG HCO3 ABG O2 Saturation ABG Base Excess ABG Hemoglobin Oxyhemoglobin Sodium Potassium Chloride Carbon Dioxide BUN Creatinine Glucose POC Glucose 153 H Lactic Acid 2.10 H* Calcium Ionized Calcium Phosphorus Magnesium Iron TIBC Ferritin Total Bilirubin Direct Bilirubin AST ALT Alkaline Phosphatase Total Creatine Kinase CK-MB (CK-2) Troponin T C-Reactive Protein Total Protein Albumin Triglycerides LDL Cholesterol Direct HDL Cholesterol Free T4 PTH Intact Urine WBC (Auto) Urine Creatinine Salicylates Acetaminophen Crossmatch 03/21/19 03/22/19 03/22/19 23:38 05:08 05:51 WBC RBC Hgb Hct RDW Plt Count Lymph % (Auto) [place] % (Auto) Lymph # Seg Neutrophils % Seg Neuts % (Manual) Lymphocytes % (Manual) Monocytes % (Manual) Nucleated RBC % Seg Neutrophils # Seg Neutrophils # Man Lymphocytes # (Manual) Monocytes # (Manual) PT INR D-Dimer Heparin Anti-Xa Level POC ABG pH 7.283 L ABG pH POC ABG pCO2 POC ABG pO2 53 L ABG pO2 ABG HCO3 ABG O2 Saturation ABG Base Excess ABG Hemoglobin Oxyhemoglobin Sodium Potassium Chloride Carbon Dioxide BUN Creatinine Glucose POC Glucose 149 H 131 H Lactic Acid Calcium Ionized Calcium Phosphorus Magnesium Iron TIBC Ferritin Total Bilirubin Direct Bilirubin AST ALT Alkaline Phosphatase Total Creatine Kinase CK-MB (CK-2) Troponin T C-Reactive Protein Total Protein Albumin Triglycerides LDL Cholesterol Direct HDL Cholesterol Free T4 PTH Intact Urine WBC (Auto) Urine Creatinine Salicylates Acetaminophen Crossmatch 03/22/19 03/22/19 03/22/19 08:00 08:00 18:19 WBC 36.7 H RBC Hgb 11.0 L Hct 33.5 L RDW 15.5 H Plt Count 43 L Lymph % (Auto) [place] % (Auto) Lymph # Seg Neutrophils % Seg Neuts % (Manual) 87.0 H Lymphocytes % (Manual) 7.0 L Monocytes % (Manual) Nucleated RBC % Seg Neutrophils # Seg Neutrophils # Man 31.9 H Lymphocytes # (Manual) Monocytes # (Manual) PT INR D-Dimer Heparin Anti-Xa Level POC ABG pH ABG pH POC ABG pCO2 46.4 H POC ABG pO2 108 H ABG pO2 ABG HCO3 ABG O2 Saturation ABG Base Excess ABG Hemoglobin Oxyhemoglobin Sodium 132 L Potassium 5.6 H Chloride 89.6 L Carbon Dioxide 20 L BUN 101 H Creatinine 7.4 H Glucose 124 H POC Glucose Lactic Acid Calcium 5.2 L* Ionized Calcium Phosphorus Magnesium Iron TIBC Ferritin Total Bilirubin 2.80 H Direct Bilirubin AST 119 H ALT 86 H Alkaline Phosphatase 245 H Total Creatine Kinase CK-MB (CK-2) Troponin T C-Reactive Protein Total Protein 5.6 L Albumin 2.5 L Triglycerides LDL Cholesterol Direct HDL Cholesterol Free T4 PTH Intact Urine WBC (Auto) Urine Creatinine Salicylates Acetaminophen Crossmatch 03/22/19 03/23/19 03/23/19 20:37 04:49 05:28 WBC 35.9 H RBC Hgb 10.8 L Hct 33.2 L RDW 15.5 H Plt Count 49 L Lymph % (Auto) [place] % (Auto) Lymph # Seg Neutrophils % Seg Neuts % (Manual) 81.0 H Lymphocytes % (Manual) 3.5 L Monocytes % (Manual) Nucleated RBC % Seg Neutrophils # Seg Neutrophils # Man 29.1 H Lymphocytes # (Manual) Monocytes # (Manual) 1.4 H PT INR D-Dimer Heparin Anti-Xa Level POC ABG pH 7.296 L ABG pH POC ABG pCO2 46.2 H POC ABG pO2 ABG pO2 ABG HCO3 ABG O2 Saturation ABG Base Excess ABG Hemoglobin Oxyhemoglobin Sodium 129 L Potassium 5.2 H Chloride 91.1 L Carbon Dioxide BUN 91 H Creatinine 6.6 H Glucose 190 H POC Glucose Lactic Acid Calcium 5.3 L* Ionized Calcium Phosphorus Magnesium Iron TIBC Ferritin Total Bilirubin 1.80 H Direct Bilirubin AST 80 H ALT 62 H Alkaline Phosphatase 209 H Total Creatine Kinase 9758 H CK-MB (CK-2) Troponin T C-Reactive Protein Total Protein 5.2 L Albumin 2.2 L Triglycerides LDL Cholesterol Direct HDL Cholesterol Free T4 PTH Intact Urine WBC (Auto) Urine Creatinine Salicylates Acetaminophen Crossmatch 03/23/19 03/23/19 03/23/19 05:28 05:31 11:33 WBC 29.7 H RBC 3.59 L Hgb 10.1 L Hct 31.1 L RDW 15.4 H Plt Count 47 L Lymph % (Auto) [place] % (Auto) Lymph # Seg Neutrophils % Seg Neuts % (Manual) 89.0 H Lymphocytes % (Manual) 6.0 L Monocytes % (Manual) Nucleated RBC % 1.0 H Seg Neutrophils # Seg Neutrophils # Man 26.4 H Lymphocytes # (Manual) Monocytes # (Manual) PT INR D-Dimer Heparin Anti-Xa Level POC ABG pH ABG pH POC ABG pCO2 POC ABG pO2 ABG pO2 ABG HCO3 ABG O2 Saturation ABG Base Excess ABG Hemoglobin Oxyhemoglobin Sodium Potassium Chloride Carbon Dioxide BUN Creatinine Glucose POC Glucose 122 H 113 H Lactic Acid Calcium Ionized Calcium Phosphorus Magnesium Iron TIBC Ferritin Total Bilirubin Direct Bilirubin AST ALT Alkaline Phosphatase Total Creatine Kinase CK-MB (CK-2) Troponin T C-Reactive Protein Total Protein Albumin Triglycerides LDL Cholesterol Direct HDL Cholesterol Free T4 PTH Intact Urine WBC (Auto) Urine Creatinine Salicylates Acetaminophen Crossmatch 03/23/19 03/24/19 03/24/19 17:47 00:00 04:50 WBC 35.0 H RBC Hgb 10.4 L Hct 32.4 L RDW Plt Count 60 L Lymph % (Auto) [place] % (Auto) Lymph # Seg Neutrophils % Seg Neuts % (Manual) 93.0 H Lymphocytes % (Manual) 5.0 L Monocytes % (Manual) Nucleated RBC % 7.0 H Seg Neutrophils # Seg Neutrophils # Man 32.6 H Lymphocytes # (Manual) Monocytes # (Manual) PT INR D-Dimer Heparin Anti-Xa Level POC ABG pH ABG pH POC ABG pCO2 POC ABG pO2 ABG pO2 ABG HCO3 ABG O2 Saturation ABG Base Excess ABG Hemoglobin Oxyhemoglobin Sodium Potassium Chloride Carbon Dioxide BUN Creatinine Glucose POC Glucose 111 H 108 H Lactic Acid Calcium Ionized Calcium Phosphorus Magnesium Iron TIBC Ferritin Total Bilirubin Direct Bilirubin AST ALT Alkaline Phosphatase Total Creatine Kinase CK-MB (CK-2) Troponin T C-Reactive Protein Total Protein Albumin Triglycerides LDL Cholesterol Direct HDL Cholesterol Free T4 PTH Intact Urine WBC (Auto) Urine Creatinine Salicylates Acetaminophen Crossmatch 03/24/19 03/24/19 03/24/19 04:50 05:06 12:55 WBC RBC Hgb Hct RDW Plt Count Lymph % (Auto) [place] % (Auto) Lymph # Seg Neutrophils % Seg Neuts % (Manual) Lymphocytes % (Manual) Monocytes % (Manual) Nucleated RBC % Seg Neutrophils # Seg Neutrophils # Man Lymphocytes # (Manual) Monocytes # (Manual) PT INR D-Dimer Heparin Anti-Xa Level POC ABG pH ABG pH POC ABG pCO2 POC ABG pO2 ABG pO2 ABG HCO3 ABG O2 Saturation ABG Base Excess ABG Hemoglobin Oxyhemoglobin Sodium 134 L Potassium 5.1 H Chloride 95.3 L Carbon Dioxide 21 L BUN 85 H Creatinine 6.4 H Glucose 109 H POC Glucose 112 H 110 H Lactic Acid Calcium 5.8 L* Ionized Calcium Phosphorus Magnesium Iron TIBC Ferritin Total Bilirubin Direct Bilirubin AST ALT Alkaline Phosphatase Total Creatine Kinase 5747 H CK-MB (CK-2) Troponin T C-Reactive Protein Total Protein Albumin Triglycerides LDL Cholesterol Direct HDL Cholesterol Free T4 PTH Intact Urine WBC (Auto) Urine Creatinine Salicylates Acetaminophen Crossmatch 03/24/19 03/25/19 03/25/19 23:29 05:00 05:00 WBC RBC Hgb Hct RDW Plt Count Lymph % (Auto) [place] % (Auto) Lymph # Seg Neutrophils % Seg Neuts % (Manual) Lymphocytes % (Manual) Monocytes % (Manual) Nucleated RBC % Seg Neutrophils # Seg Neutrophils # Man Lymphocytes # (Manual) Monocytes # (Manual) PT INR D-Dimer Heparin Anti-Xa Level POC ABG pH ABG pH POC ABG pCO2 POC ABG pO2 ABG pO2 ABG HCO3 ABG O2 Saturation ABG Base Excess ABG Hemoglobin Oxyhemoglobin Sodium 133 L Potassium Chloride 94.0 L Carbon Dioxide 21 L BUN 81 H Creatinine 6.4 H Glucose POC Glucose 109 H Lactic Acid Calcium 5.5 L* Ionized Calcium Phosphorus Magnesium Iron TIBC Ferritin Total Bilirubin Direct Bilirubin AST 80 H ALT Alkaline Phosphatase 202 H Total Creatine Kinase 3589 H CK-MB (CK-2) Troponin T C-Reactive Protein Total Protein 5.3 L Albumin 2.4 L Triglycerides LDL Cholesterol Direct HDL Cholesterol Free T4 PTH Intact 329.9 H Urine WBC (Auto) Urine Creatinine Salicylates Acetaminophen Crossmatch 03/25/19 03/25/19 03/26/19 05:00 06:30 04:30 WBC 23.3 H RBC 3.61 L Hgb 10.2 L Hct 31.2 L RDW Plt Count 57 L Lymph % (Auto) [place] % (Auto) Lymph # Seg Neutrophils % Seg Neuts % (Manual) 92.0 H Lymphocytes % (Manual) 6.0 L Monocytes % (Manual) Nucleated RBC % Seg Neutrophils # Seg Neutrophils # Man 21.4 H Lymphocytes # (Manual) Monocytes # (Manual) PT INR D-Dimer Heparin Anti-Xa Level POC ABG pH ABG pH 7.326 L POC ABG pCO2 POC ABG pO2 ABG pO2 109.5 H 137.4 H ABG HCO3 18.8 L 18.6 L ABG O2 Saturation ABG Base Excess -4.4 L -6.8 L ABG Hemoglobin 10.1 L 9.9 L Oxyhemoglobin Sodium Potassium Chloride Carbon Dioxide BUN Creatinine Glucose POC Glucose Lactic Acid Calcium Ionized Calcium Phosphorus Magnesium Iron TIBC Ferritin Total Bilirubin Direct Bilirubin AST ALT Alkaline Phosphatase Total Creatine Kinase CK-MB (CK-2) Troponin T C-Reactive Protein Total Protein Albumin Triglycerides LDL Cholesterol Direct HDL Cholesterol Free T4 PTH Intact Urine WBC (Auto) Urine Creatinine Salicylates Acetaminophen Crossmatch 03/26/19 03/26/19 03/26/19 23:22 Unknown Unknown WBC 19.5 H RBC 3.44 L Hgb 9.8 L Hct 29.9 L RDW Plt Count 85 L Lymph % (Auto) [place] % (Auto) Lymph # Seg Neutrophils % Seg Neuts % (Manual) 95.0 H Lymphocytes % (Manual) 3.0 L Monocytes % (Manual) Nucleated RBC % Seg Neutrophils # Seg Neutrophils # Man 18.5 H Lymphocytes # (Manual) 0.6 L Monocytes # (Manual) PT INR D-Dimer Heparin Anti-Xa Level POC ABG pH ABG pH POC ABG pCO2 POC ABG pO2 ABG pO2 ABG HCO3 ABG O2 Saturation ABG Base Excess ABG Hemoglobin Oxyhemoglobin Sodium 135 L Potassium 5.2 H D Chloride 92.2 L Carbon Dioxide 18 L BUN 109 H Creatinine 8.5 H Glucose 117 H POC Glucose 69 L Lactic Acid Calcium 4.5 L* D Ionized Calcium Phosphorus Magnesium Iron TIBC Ferritin Total Bilirubin Direct Bilirubin AST ALT Alkaline Phosphatase Total Creatine Kinase 4527 H CK-MB (CK-2) Troponin T C-Reactive Protein Total Protein Albumin Triglycerides LDL Cholesterol Direct HDL Cholesterol Free T4 PTH Intact Urine WBC (Auto) Urine Creatinine Salicylates Acetaminophen Crossmatch 03/27/19 03/27/19 03/27/19 04:30 04:30 09:00 WBC 19.2 H RBC 3.42 L Hgb 9.9 L Hct 30.0 L RDW Plt Count 84 L Lymph % (Auto) [place] % (Auto) Lymph # Seg Neutrophils % Seg Neuts % (Manual) Lymphocytes % (Manual) Monocytes % (Manual) Nucleated RBC % Seg Neutrophils # Seg Neutrophils # Man Lymphocytes # (Manual) Monocytes # (Manual) PT INR D-Dimer Heparin Anti-Xa Level POC ABG pH ABG pH POC ABG pCO2 POC ABG pO2 ABG pO2 ABG HCO3 ABG O2 Saturation ABG Base Excess ABG Hemoglobin Oxyhemoglobin Sodium 135 L Potassium Chloride 93.5 L Carbon Dioxide BUN 84 H Creatinine 7.1 H Glucose POC Glucose Lactic Acid Calcium 5.0 L* Ionized Calcium Phosphorus Magnesium Iron TIBC Ferritin Total Bilirubin Direct Bilirubin AST 78 H ALT Alkaline Phosphatase 135 H Total Creatine Kinase 4677 H CK-MB (CK-2) Troponin T C-Reactive Protein Total Protein 4.8 L Albumin 2.3 L Triglycerides 409 H LDL Cholesterol Direct HDL Cholesterol Free T4 PTH Intact Urine WBC (Auto) Urine Creatinine Salicylates Acetaminophen Crossmatch 03/27/19 03/27/19 03/27/19 12:37 14:15 14:15 WBC RBC Hgb 9.7 L Hct 29.5 L RDW Plt Count 87 L Lymph % (Auto) [place] % (Auto) Lymph # Seg Neutrophils % Seg Neuts % (Manual) Lymphocytes % (Manual) Monocytes % (Manual) Nucleated RBC % Seg Neutrophils # Seg Neutrophils # Man Lymphocytes # (Manual) Monocytes # (Manual) PT 15.9 H INR 1.30 H D-Dimer Heparin Anti-Xa Level POC ABG pH ABG pH POC ABG pCO2 POC ABG pO2 ABG pO2 ABG HCO3 ABG O2 Saturation ABG Base Excess ABG Hemoglobin Oxyhemoglobin Sodium Potassium Chloride Carbon Dioxide BUN Creatinine Glucose POC Glucose 129 H Lactic Acid Calcium Ionized Calcium Phosphorus Magnesium Iron TIBC Ferritin Total Bilirubin Direct Bilirubin AST ALT Alkaline Phosphatase Total Creatine Kinase CK-MB (CK-2) Troponin T C-Reactive Protein Total Protein Albumin Triglycerides LDL Cholesterol Direct HDL Cholesterol Free T4 PTH Intact Urine WBC (Auto) Urine Creatinine Salicylates Acetaminophen Crossmatch 03/27/19 03/27/19 03/27/19 18:00 19:22 19:23 WBC RBC Hgb Hct RDW Plt Count Lymph % (Auto) [place] % (Auto) Lymph # Seg Neutrophils % Seg Neuts % (Manual) Lymphocytes % (Manual) Monocytes % (Manual) Nucleated RBC % Seg Neutrophils # Seg Neutrophils # Man Lymphocytes # (Manual) Monocytes # (Manual) PT INR D-Dimer Heparin Anti-Xa Level < 0.10 L POC ABG pH ABG pH POC ABG pCO2 POC ABG pO2 ABG pO2 ABG HCO3 ABG O2 Saturation ABG Base Excess ABG Hemoglobin Oxyhemoglobin Sodium Potassium Chloride Carbon Dioxide BUN Creatinine Glucose POC Glucose 121 H Lactic Acid Calcium Ionized Calcium Phosphorus Magnesium Iron TIBC Ferritin Total Bilirubin Direct Bilirubin AST ALT Alkaline Phosphatase Total Creatine Kinase 4517 H CK-MB (CK-2) Troponin T C-Reactive Protein Total Protein Albumin Triglycerides LDL Cholesterol Direct HDL Cholesterol Free T4 PTH Intact Urine WBC (Auto) Urine Creatinine Salicylates Acetaminophen Crossmatch 03/27/19 03/27/19 03/28/19 22:10 23:52 03:49 WBC RBC Hgb Hct RDW Plt Count Lymph % (Auto) [place] % (Auto) Lymph # Seg Neutrophils % Seg Neuts % (Manual) Lymphocytes % (Manual) Monocytes % (Manual) Nucleated RBC % Seg Neutrophils # Seg Neutrophils # Man Lymphocytes # (Manual) Monocytes # (Manual) PT INR D-Dimer Heparin Anti-Xa Level POC ABG pH 7.338 L ABG pH POC ABG pCO2 33.1 L POC ABG pO2 ABG pO2 ABG HCO3 ABG O2 Saturation ABG Base Excess ABG Hemoglobin Oxyhemoglobin Sodium Potassium Chloride Carbon Dioxide BUN Creatinine Glucose POC Glucose 113 H 117 H Lactic Acid Calcium Ionized Calcium Phosphorus Magnesium Iron TIBC Ferritin Total Bilirubin Direct Bilirubin AST ALT Alkaline Phosphatase Total Creatine Kinase CK-MB (CK-2) Troponin T C-Reactive Protein Total Protein Albumin Triglycerides LDL Cholesterol Direct HDL Cholesterol Free T4 PTH Intact Urine WBC (Auto) Urine Creatinine Salicylates Acetaminophen Crossmatch 03/28/19 03/28/19 03/28/19 05:13 05:13 06:18 WBC RBC Hgb Hct RDW Plt Count Lymph % (Auto) [place] % (Auto) Lymph # Seg Neutrophils % Seg Neuts % (Manual) Lymphocytes % (Manual) Monocytes % (Manual) Nucleated RBC % Seg Neutrophils # Seg Neutrophils # Man Lymphocytes # (Manual) Monocytes # (Manual) PT INR D-Dimer Heparin Anti-Xa Level 0.23 L POC ABG pH ABG pH POC ABG pCO2 POC ABG pO2 ABG pO2 ABG HCO3 ABG O2 Saturation ABG Base Excess ABG Hemoglobin Oxyhemoglobin Sodium 135 L Potassium 5.5 H D Chloride 95.1 L Carbon Dioxide 16 L D BUN 129 H Creatinine 9.3 H Glucose 158 H POC Glucose 202 H Lactic Acid Calcium 4.0 L* D Ionized Calcium Phosphorus 12.40 H Magnesium Iron TIBC Ferritin Total Bilirubin Direct Bilirubin AST ALT Alkaline Phosphatase Total Creatine Kinase 4266 H CK-MB (CK-2) Troponin T C-Reactive Protein Total Protein Albumin Triglycerides LDL Cholesterol Direct HDL Cholesterol Free T4 PTH Intact Urine WBC (Auto) Urine Creatinine Salicylates Acetaminophen Crossmatch 03/28/19 03/28/19 03/28/19 08:25 10:00 12:00 WBC RBC Hgb 4.9 L* D Hct 15.4 L* D RDW Plt Count Lymph % (Auto) [place] % (Auto) Lymph # Seg Neutrophils % Seg Neuts % (Manual) Lymphocytes % (Manual) Monocytes % (Manual) Nucleated RBC % Seg Neutrophils # Seg Neutrophils # Man Lymphocytes # (Manual) Monocytes # (Manual) PT 17.9 H INR 1.52 H D-Dimer 4845.98 H Heparin Anti-Xa Level POC ABG pH ABG pH POC ABG pCO2 POC ABG pO2 ABG pO2 ABG HCO3 ABG O2 Saturation ABG Base Excess ABG Hemoglobin Oxyhemoglobin Sodium Potassium Chloride Carbon Dioxide BUN Creatinine Glucose POC Glucose Lactic Acid Calcium Ionized Calcium Phosphorus Magnesium Iron TIBC Ferritin Total Bilirubin Direct Bilirubin AST ALT Alkaline Phosphatase Total Creatine Kinase CK-MB (CK-2) Troponin T C-Reactive Protein Total Protein Albumin Triglycerides LDL Cholesterol Direct HDL Cholesterol Free T4 PTH Intact Urine WBC (Auto) Urine Creatinine Salicylates Acetaminophen Crossmatch See Detail 03/28/19 03/28/19 03/28/19 12:28 14:10 17:43 WBC RBC Hgb 5.9 L* Hct 18.3 L* RDW Plt Count Lymph % (Auto) [place] % (Auto) Lymph # Seg Neutrophils % Seg Neuts % (Manual) Lymphocytes % (Manual) Monocytes % (Manual) Nucleated RBC % Seg Neutrophils # Seg Neutrophils # Man Lymphocytes # (Manual) Monocytes # (Manual) PT INR D-Dimer Heparin Anti-Xa Level POC ABG pH ABG pH POC ABG pCO2 POC ABG pO2 ABG pO2 ABG HCO3 ABG O2 Saturation ABG Base Excess ABG Hemoglobin Oxyhemoglobin Sodium Potassium Chloride Carbon Dioxide BUN Creatinine Glucose POC Glucose 153 H 159 H Lactic Acid Calcium Ionized Calcium Phosphorus Magnesium Iron TIBC Ferritin Total Bilirubin Direct Bilirubin AST ALT Alkaline Phosphatase Total Creatine Kinase CK-MB (CK-2) Troponin T C-Reactive Protein Total Protein Albumin Triglycerides LDL Cholesterol Direct HDL Cholesterol Free T4 PTH Intact Urine WBC (Auto) Urine Creatinine Salicylates Acetaminophen Crossmatch 03/28/19 03/28/19 03/28/19 18:10 Unknown 23:59 WBC 24.8 H RBC 3.42 L Hgb 10.2 L D Hct 31.1 L D RDW 15.4 H Plt Count 54 L Lymph % (Auto) [place] % (Auto) Lymph # Seg Neutrophils % Seg Neuts % (Manual) 91.0 H Lymphocytes % (Manual) 8.0 L Monocytes % (Manual) Nucleated RBC % Seg Neutrophils # Seg Neutrophils # Man 22.6 H Lymphocytes # (Manual) Monocytes # (Manual) PT INR D-Dimer Heparin Anti-Xa Level POC ABG pH ABG pH POC ABG pCO2 POC ABG pO2 ABG pO2 ABG HCO3 ABG O2 Saturation ABG Base Excess ABG Hemoglobin Oxyhemoglobin Sodium Potassium 5.7 H Chloride Carbon Dioxide BUN Creatinine Glucose POC Glucose 107 H Lactic Acid Calcium Ionized Calcium Phosphorus Magnesium Iron TIBC Ferritin Total Bilirubin Direct Bilirubin AST ALT Alkaline Phosphatase Total Creatine Kinase CK-MB (CK-2) Troponin T C-Reactive Protein Total Protein Albumin Triglycerides LDL Cholesterol Direct HDL Cholesterol Free T4 PTH Intact Urine WBC (Auto) Urine Creatinine Salicylates Acetaminophen Crossmatch 03/29/19 03/29/19 03/29/19 04:29 05:46 06:22 WBC RBC Hgb 8.6 L Hct 25.7 L RDW Plt Count 93 L Lymph % (Auto) [place] % (Auto) Lymph # Seg Neutrophils % Seg Neuts % (Manual) Lymphocytes % (Manual) Monocytes % (Manual) Nucleated RBC % Seg Neutrophils # Seg Neutrophils # Man Lymphocytes # (Manual) Monocytes # (Manual) PT INR D-Dimer Heparin Anti-Xa Level POC ABG pH ABG pH POC ABG pCO2 32.2 L POC ABG pO2 ABG pO2 ABG HCO3 ABG O2 Saturation ABG Base Excess ABG Hemoglobin Oxyhemoglobin Sodium Potassium Chloride Carbon Dioxide BUN Creatinine Glucose POC Glucose 113 H Lactic Acid Calcium Ionized Calcium Phosphorus Magnesium Iron TIBC Ferritin Total Bilirubin Direct Bilirubin AST ALT Alkaline Phosphatase Total Creatine Kinase CK-MB (CK-2) Troponin T C-Reactive Protein Total Protein Albumin Triglycerides LDL Cholesterol Direct HDL Cholesterol Free T4 PTH Intact Urine WBC (Auto) Urine Creatinine Salicylates Acetaminophen Crossmatch 03/29/19 03/29/19 03/29/19 06:22 06:22 06:22 WBC 23.2 H RBC 2.91 L Hgb 8.6 L Hct 25.8 L RDW Plt Count 91 L Lymph % (Auto) [place] % (Auto) Lymph # Seg Neutrophils % Seg Neuts % (Manual) Lymphocytes % (Manual) Monocytes % (Manual) Nucleated RBC % Seg Neutrophils # Seg Neutrophils # Man Lymphocytes # (Manual) Monocytes # (Manual) PT INR D-Dimer Heparin Anti-Xa Level POC ABG pH ABG pH POC ABG pCO2 POC ABG pO2 ABG pO2 ABG HCO3 ABG O2 Saturation ABG Base Excess ABG Hemoglobin Oxyhemoglobin Sodium 133 L Potassium Chloride 93.8 L Carbon Dioxide 18 L BUN 109 H Creatinine 7.4 H Glucose 124 H POC Glucose Lactic Acid Calcium 4.6 L* Ionized Calcium Phosphorus Magnesium Iron TIBC Ferritin Total Bilirubin Direct Bilirubin AST ALT Alkaline Phosphatase Total Creatine Kinase 3401 H CK-MB (CK-2) Troponin T C-Reactive Protein Total Protein Albumin Triglycerides 309 H LDL Cholesterol Direct HDL Cholesterol Free T4 PTH Intact Urine WBC (Auto) Urine Creatinine Salicylates Acetaminophen Crossmatch 03/29/19 03/29/19 03/29/19 11:48 11:48 18:24 WBC RBC Hgb 7.8 L Hct 23.2 L RDW Plt Count Lymph % (Auto) [place] % (Auto) Lymph # Seg Neutrophils % Seg Neuts % (Manual) Lymphocytes % (Manual) Monocytes % (Manual) Nucleated RBC % Seg Neutrophils # Seg Neutrophils # Man Lymphocytes # (Manual) Monocytes # (Manual) PT 15.3 H INR 1.24 H D-Dimer Heparin Anti-Xa Level POC ABG pH ABG pH POC ABG pCO2 POC ABG pO2 ABG pO2 ABG HCO3 ABG O2 Saturation ABG Base Excess ABG Hemoglobin Oxyhemoglobin Sodium Potassium Chloride Carbon Dioxide BUN Creatinine Glucose POC Glucose 122 H Lactic Acid Calcium Ionized Calcium Phosphorus Magnesium Iron TIBC Ferritin Total Bilirubin Direct Bilirubin AST ALT Alkaline Phosphatase Total Creatine Kinase CK-MB (CK-2) Troponin T C-Reactive Protein Total Protein Albumin Triglycerides LDL Cholesterol Direct HDL Cholesterol Free T4 PTH Intact Urine WBC (Auto) Urine Creatinine Salicylates Acetaminophen Crossmatch 03/30/19 03/30/19 03/30/19 00:40 04:31 05:04 WBC RBC Hgb 7.6 L Hct 23.0 L RDW Plt Count Lymph % (Auto) [place] % (Auto) Lymph # Seg Neutrophils % Seg Neuts % (Manual) Lymphocytes % (Manual) Monocytes % (Manual) Nucleated RBC % Seg Neutrophils # Seg Neutrophils # Man Lymphocytes # (Manual) Monocytes # (Manual) PT INR D-Dimer Heparin Anti-Xa Level POC ABG pH 7.346 L ABG pH POC ABG pCO2 POC ABG pO2 62 L ABG pO2 ABG HCO3 ABG O2 Saturation ABG Base Excess ABG Hemoglobin Oxyhemoglobin Sodium Potassium Chloride Carbon Dioxide BUN 79 H Creatinine 6.4 H Glucose POC Glucose Lactic Acid Calcium 6.1 L D Ionized Calcium Phosphorus Magnesium Iron TIBC Ferritin Total Bilirubin Direct Bilirubin AST ALT Alkaline Phosphatase Total Creatine Kinase CK-MB (CK-2) Troponin T C-Reactive Protein Total Protein Albumin Triglycerides LDL Cholesterol Direct HDL Cholesterol Free T4 PTH Intact Urine WBC (Auto) Urine Creatinine Salicylates Acetaminophen Crossmatch 03/30/19 03/30/19 03/30/19 08:45 12:09 22:43 WBC 14.3 H RBC 2.33 L Hgb 7.0 L 7.4 L Hct 21.0 L 22.3 L RDW 15.6 H Plt Count 135 L Lymph % (Auto) [place] % (Auto) Lymph # Seg Neutrophils % Seg Neuts % (Manual) Lymphocytes % (Manual) Monocytes % (Manual) Nucleated RBC % Seg Neutrophils # Seg Neutrophils # Man Lymphocytes # (Manual) Monocytes # (Manual) PT INR D-Dimer Heparin Anti-Xa Level POC ABG pH ABG pH POC ABG pCO2 POC ABG pO2 ABG pO2 ABG HCO3 ABG O2 Saturation ABG Base Excess ABG Hemoglobin Oxyhemoglobin Sodium Potassium Chloride Carbon Dioxide BUN Creatinine Glucose POC Glucose Lactic Acid Calcium Ionized Calcium 3.7 L Phosphorus Magnesium Iron TIBC Ferritin Total Bilirubin Direct Bilirubin AST ALT Alkaline Phosphatase Total Creatine Kinase CK-MB (CK-2) Troponin T C-Reactive Protein Total Protein Albumin Triglycerides LDL Cholesterol Direct HDL Cholesterol Free T4 PTH Intact Urine WBC (Auto) Urine Creatinine Salicylates Acetaminophen Crossmatch 03/30/19 03/30/19 03/31/19 23:38 Unknown 04:44 WBC 11.5 H RBC 2.40 L Hgb 7.3 L Hct 21.9 L RDW 15.4 H Plt Count Lymph % (Auto) 10.6 L [place] % (Auto) Lymph # Seg Neutrophils % 81.7 H Seg Neuts % (Manual) Lymphocytes % (Manual) Monocytes % (Manual) Nucleated RBC % Seg Neutrophils # 9.4 H Seg Neutrophils # Man Lymphocytes # (Manual) Monocytes # (Manual) PT INR D-Dimer Heparin Anti-Xa Level POC ABG pH ABG pH POC ABG pCO2 POC ABG pO2 ABG pO2 ABG HCO3 ABG O2 Saturation ABG Base Excess ABG Hemoglobin Oxyhemoglobin Sodium Potassium Chloride Carbon Dioxide BUN Creatinine Glucose POC Glucose 155 H Lactic Acid Calcium Ionized Calcium Phosphorus Magnesium Iron TIBC Ferritin Total Bilirubin Direct Bilirubin 0.4 H AST 63 H ALT Alkaline Phosphatase Total Creatine Kinase CK-MB (CK-2) Troponin T C-Reactive Protein Total Protein 4.9 L Albumin 2.2 L Triglycerides LDL Cholesterol Direct HDL Cholesterol Free T4 PTH Intact Urine WBC (Auto) Urine Creatinine Salicylates Acetaminophen Crossmatch 03/31/19 03/31/19 03/31/19 04:44 05:44 08:20 WBC RBC Hgb Hct RDW Plt Count Lymph % (Auto) [place] % (Auto) Lymph # Seg Neutrophils % Seg Neuts % (Manual) Lymphocytes % (Manual) Monocytes % (Manual) Nucleated RBC % Seg Neutrophils # Seg Neutrophils # Man Lymphocytes # (Manual) Monocytes # (Manual) PT INR D-Dimer Heparin Anti-Xa Level POC ABG pH ABG pH POC ABG pCO2 53.5 H POC ABG pO2 62 L ABG pO2 ABG HCO3 ABG O2 Saturation ABG Base Excess ABG Hemoglobin Oxyhemoglobin Sodium 135 L Potassium Chloride 96.7 L Carbon Dioxide 19 L BUN 94 H Creatinine 7.8 H Glucose POC Glucose Lactic Acid Calcium 5.3 L* Ionized Calcium Phosphorus 8.20 H Magnesium Iron TIBC Ferritin Total Bilirubin Direct Bilirubin 0.4 H AST 60 H ALT Alkaline Phosphatase Total Creatine Kinase CK-MB (CK-2) Troponin T C-Reactive Protein Total Protein 4.8 L Albumin 2.1 L Triglycerides LDL Cholesterol Direct HDL Cholesterol Free T4 PTH Intact Urine WBC (Auto) Urine Creatinine Salicylates Acetaminophen Crossmatch 03/31/19 04/01/19 04/01/19 22:14 04:27 04:27 WBC RBC 2.60 L Hgb 8.0 L Hct 24.1 L RDW 15.7 H Plt Count Lymph % (Auto) 7.9 L [place] % (Auto) Lymph # 0.7 L Seg Neutrophils % 83.6 H Seg Neuts % (Manual) Lymphocytes % (Manual) Monocytes % (Manual) Nucleated RBC % Seg Neutrophils # Seg Neutrophils # Man Lymphocytes # (Manual) Monocytes # (Manual) PT INR D-Dimer Heparin Anti-Xa Level POC ABG pH 7.286 L ABG pH POC ABG pCO2 54.7 H POC ABG pO2 179 H ABG pO2 ABG HCO3 ABG O2 Saturation ABG Base Excess ABG Hemoglobin Oxyhemoglobin Sodium Potassium Chloride Carbon Dioxide BUN 68 H Creatinine 6.6 H Glucose POC Glucose Lactic Acid Calcium 6.5 L D Ionized Calcium Phosphorus 7.30 H Magnesium Iron TIBC Ferritin Total Bilirubin Direct Bilirubin AST ALT Alkaline Phosphatase Total Creatine Kinase 1652 H CK-MB (CK-2) Troponin T C-Reactive Protein Total Protein Albumin Triglycerides LDL Cholesterol Direct HDL Cholesterol Free T4 PTH Intact Urine WBC (Auto) Urine Creatinine Salicylates Acetaminophen Crossmatch 04/01/19 04/01/19 04/01/19 05:14 05:37 18:37 WBC RBC Hgb Hct RDW Plt Count Lymph % (Auto) [place] % (Auto) Lymph # Seg Neutrophils % Seg Neuts % (Manual) Lymphocytes % (Manual) Monocytes % (Manual) Nucleated RBC % Seg Neutrophils # Seg Neutrophils # Man Lymphocytes # (Manual) Monocytes # (Manual) PT INR D-Dimer Heparin Anti-Xa Level POC ABG pH 7.283 L ABG pH POC ABG pCO2 53.4 H POC ABG pO2 241 H ABG pO2 ABG HCO3 ABG O2 Saturation ABG Base Excess ABG Hemoglobin Oxyhemoglobin Sodium Potassium Chloride Carbon Dioxide BUN Creatinine Glucose POC Glucose 111 H 119 H Lactic Acid Calcium Ionized Calcium Phosphorus Magnesium Iron TIBC Ferritin Total Bilirubin Direct Bilirubin AST ALT Alkaline Phosphatase Total Creatine Kinase CK-MB (CK-2) Troponin T C-Reactive Protein Total Protein Albumin Triglycerides LDL Cholesterol Direct HDL Cholesterol Free T4 PTH Intact Urine WBC (Auto) Urine Creatinine Salicylates Acetaminophen Crossmatch 04/01/19 04/02/19 04/02/19 21:28 04:40 05:03 WBC RBC 2.36 L Hgb 7.2 L Hct 21.9 L RDW 16.0 H Plt Count Lymph % (Auto) 10.8 L [place] % (Auto) Lymph # 0.8 L Seg Neutrophils % 80.3 H Seg Neuts % (Manual) Lymphocytes % (Manual) Monocytes % (Manual) Nucleated RBC % Seg Neutrophils # Seg Neutrophils # Man Lymphocytes # (Manual) Monocytes # (Manual) PT INR D-Dimer Heparin Anti-Xa Level POC ABG pH 7.299 L 7.300 L ABG pH POC ABG pCO2 48.2 H 45.2 H POC ABG pO2 133 H 107 H ABG pO2 ABG HCO3 ABG O2 Saturation ABG Base Excess ABG Hemoglobin Oxyhemoglobin Sodium Potassium Chloride Carbon Dioxide BUN Creatinine Glucose POC Glucose Lactic Acid Calcium Ionized Calcium Phosphorus Magnesium Iron TIBC Ferritin Total Bilirubin Direct Bilirubin AST ALT Alkaline Phosphatase Total Creatine Kinase CK-MB (CK-2) Troponin T C-Reactive Protein Total Protein Albumin Triglycerides LDL Cholesterol Direct HDL Cholesterol Free T4 PTH Intact Urine WBC (Auto) Urine Creatinine Salicylates Acetaminophen Crossmatch 04/02/19 04/02/19 04/02/19 05:03 05:03 12:15 WBC RBC Hgb 7.4 L Hct 22.6 L RDW Plt Count Lymph % (Auto) [place] % (Auto) Lymph # Seg Neutrophils % Seg Neuts % (Manual) Lymphocytes % (Manual) Monocytes % (Manual) Nucleated RBC % Seg Neutrophils # Seg Neutrophils # Man Lymphocytes # (Manual) Monocytes # (Manual) PT INR D-Dimer Heparin Anti-Xa Level POC ABG pH ABG pH POC ABG pCO2 POC ABG pO2 ABG pO2 ABG HCO3 ABG O2 Saturation ABG Base Excess ABG Hemoglobin Oxyhemoglobin Sodium 136 L Potassium Chloride 97.8 L Carbon Dioxide 18 L BUN 82 H Creatinine 8.2 H Glucose POC Glucose Lactic Acid Calcium 6.7 L Ionized Calcium Phosphorus 7.50 H Magnesium Iron 26 L TIBC 138 L Ferritin 607.0 H Total Bilirubin Direct Bilirubin AST ALT Alkaline Phosphatase Total Creatine Kinase CK-MB (CK-2) Troponin T C-Reactive Protein Total Protein Albumin Triglycerides LDL Cholesterol Direct HDL Cholesterol Free T4 PTH Intact Urine WBC (Auto) Urine Creatinine Salicylates Acetaminophen Crossmatch 04/02/19 04/02/19 04/03/19 16:34 17:14 04:18 WBC RBC Hgb Hct RDW Plt Count Lymph % (Auto) [place] % (Auto) Lymph # Seg Neutrophils % Seg Neuts % (Manual) Lymphocytes % (Manual) Monocytes % (Manual) Nucleated RBC % Seg Neutrophils # Seg Neutrophils # Man Lymphocytes # (Manual) Monocytes # (Manual) PT INR D-Dimer Heparin Anti-Xa Level POC ABG pH ABG pH POC ABG pCO2 POC ABG pO2 146 H ABG pO2 ABG HCO3 ABG O2 Saturation ABG Base Excess ABG Hemoglobin Oxyhemoglobin Sodium Potassium Chloride Carbon Dioxide BUN Creatinine Glucose POC Glucose 108 H Lactic Acid Calcium Ionized Calcium Phosphorus Magnesium Iron TIBC Ferritin Total Bilirubin Direct Bilirubin AST ALT Alkaline Phosphatase Total Creatine Kinase CK-MB (CK-2) Troponin T C-Reactive Protein Total Protein Albumin Triglycerides LDL Cholesterol Direct HDL Cholesterol Free T4 PTH Intact Urine WBC (Auto) Urine Creatinine Salicylates Acetaminophen Crossmatch See Detail 04/03/19 04/03/19 04/03/19 04:25 08:30 18:24 WBC RBC 2.40 L Hgb 7.3 L Hct 21.9 L RDW Plt Count Lymph % (Auto) [place] % (Auto) 7.7 H Lymph # 0.9 L Seg Neutrophils % 74.6 H Seg Neuts % (Manual) Lymphocytes % (Manual) Monocytes % (Manual) Nucleated RBC % Seg Neutrophils # Seg Neutrophils # Man Lymphocytes # (Manual) Monocytes # (Manual) PT INR D-Dimer Heparin Anti-Xa Level POC ABG pH ABG pH POC ABG pCO2 POC ABG pO2 ABG pO2 ABG HCO3 ABG O2 Saturation ABG Base Excess ABG Hemoglobin Oxyhemoglobin Sodium 136 L Potassium Chloride 97.0 L Carbon Dioxide BUN 58 H Creatinine 7.3 H Glucose POC Glucose 106 H Lactic Acid Calcium 7.5 L Ionized Calcium Phosphorus 5.80 H D Magnesium Iron TIBC Ferritin Total Bilirubin Direct Bilirubin AST ALT Alkaline Phosphatase Total Creatine Kinase CK-MB (CK-2) Troponin T C-Reactive Protein Total Protein Albumin Triglycerides LDL Cholesterol Direct HDL Cholesterol Free T4 PTH Intact Urine WBC (Auto) Urine Creatinine Salicylates Acetaminophen Crossmatch 04/03/19 04/04/19 04/04/19 23:43 04:47 04:47 WBC RBC 2.72 L Hgb 8.3 L Hct 24.7 L RDW 15.6 H Plt Count Lymph % (Auto) [place] % (Auto) 10.1 H Lymph # 0.8 L Seg Neutrophils % 71.4 H Seg Neuts % (Manual) Lymphocytes % (Manual) Monocytes % (Manual) Nucleated RBC % Seg Neutrophils # Seg Neutrophils # Man Lymphocytes # (Manual) Monocytes # (Manual) PT INR D-Dimer Heparin Anti-Xa Level POC ABG pH ABG pH POC ABG pCO2 POC ABG pO2 ABG pO2 123.8 H ABG HCO3 ABG O2 Saturation ABG Base Excess -3.0 L ABG Hemoglobin 7.9 L Oxyhemoglobin Sodium 134 L Potassium Chloride 97.9 L Carbon Dioxide BUN 64 H Creatinine 8.1 H Glucose POC Glucose Lactic Acid Calcium 7.2 L Ionized Calcium Phosphorus Magnesium Iron TIBC Ferritin Total Bilirubin Direct Bilirubin AST ALT Alkaline Phosphatase Total Creatine Kinase CK-MB (CK-2) Troponin T C-Reactive Protein Total Protein Albumin Triglycerides LDL Cholesterol Direct HDL Cholesterol Free T4 PTH Intact Urine WBC (Auto) Urine Creatinine Salicylates Acetaminophen Crossmatch 04/04/19 04/04/19 04/04/19 06:07 13:40 18:18 WBC RBC Hgb Hct RDW Plt Count Lymph % (Auto) [place] % (Auto) Lymph # Seg Neutrophils % Seg Neuts % (Manual) Lymphocytes % (Manual) Monocytes % (Manual) Nucleated RBC % Seg Neutrophils # Seg Neutrophils # Man Lymphocytes # (Manual) Monocytes # (Manual) PT INR D-Dimer Heparin Anti-Xa Level POC ABG pH ABG pH POC ABG pCO2 POC ABG pO2 ABG pO2 95.9 H ABG HCO3 ABG O2 Saturation ABG Base Excess -3.0 L ABG Hemoglobin 8.5 L Oxyhemoglobin Sodium Potassium Chloride Carbon Dioxide BUN Creatinine Glucose POC Glucose 107 H 107 H Lactic Acid Calcium Ionized Calcium Phosphorus Magnesium Iron TIBC Ferritin Total Bilirubin Direct Bilirubin AST ALT Alkaline Phosphatase Total Creatine Kinase CK-MB (CK-2) Troponin T C-Reactive Protein Total Protein Albumin Triglycerides LDL Cholesterol Direct HDL Cholesterol Free T4 PTH Intact Urine WBC (Auto) Urine Creatinine Salicylates Acetaminophen Crossmatch 04/04/19 04/05/19 04/05/19 21:22 04:09 04:09 WBC RBC 2.76 L Hgb 8.4 L Hct 25.4 L RDW 15.8 H Plt Count 133 L Lymph % (Auto) [place] % (Auto) 9.6 H Lymph # 0.7 L Seg Neutrophils % 72.6 H Seg Neuts % (Manual) Lymphocytes % (Manual) Monocytes % (Manual) Nucleated RBC % Seg Neutrophils # Seg Neutrophils # Man Lymphocytes # (Manual) Monocytes # (Manual) PT INR D-Dimer Heparin Anti-Xa Level POC ABG pH ABG pH POC ABG pCO2 47.2 H POC ABG pO2 137 H ABG pO2 ABG HCO3 ABG O2 Saturation ABG Base Excess ABG Hemoglobin Oxyhemoglobin Sodium 136 L Potassium Chloride Carbon Dioxide BUN 46 H Creatinine 6.7 H Glucose POC Glucose Lactic Acid Calcium 7.7 L Ionized Calcium Phosphorus Magnesium Iron TIBC Ferritin Total Bilirubin Direct Bilirubin AST ALT Alkaline Phosphatase Total Creatine Kinase CK-MB (CK-2) Troponin T C-Reactive Protein Total Protein Albumin Triglycerides LDL Cholesterol Direct HDL Cholesterol Free T4 PTH Intact Urine WBC (Auto) Urine Creatinine Salicylates Acetaminophen Crossmatch 04/05/19 04/05/19 04/05/19 05:28 06:14 16:50 WBC RBC Hgb Hct RDW Plt Count Lymph % (Auto) [place] % (Auto) Lymph # Seg Neutrophils % Seg Neuts % (Manual) Lymphocytes % (Manual) Monocytes % (Manual) Nucleated RBC % Seg Neutrophils # Seg Neutrophils # Man Lymphocytes # (Manual) Monocytes # (Manual) PT INR D-Dimer Heparin Anti-Xa Level POC ABG pH ABG pH POC ABG pCO2 POC ABG pO2 67 L ABG pO2 ABG HCO3 ABG O2 Saturation ABG Base Excess ABG Hemoglobin Oxyhemoglobin Sodium Potassium Chloride Carbon Dioxide BUN Creatinine Glucose POC Glucose 108 H Lactic Acid Calcium Ionized Calcium Phosphorus Magnesium Iron TIBC Ferritin Total Bilirubin Direct Bilirubin AST ALT Alkaline Phosphatase Total Creatine Kinase CK-MB (CK-2) Troponin T C-Reactive Protein Total Protein Albumin Triglycerides LDL Cholesterol Direct HDL Cholesterol Free T4 PTH Intact Urine WBC (Auto) 40.0 H Urine Creatinine Salicylates Acetaminophen Crossmatch 04/05/19 04/06/19 04/06/19 17:22 00:13 04:44 WBC RBC 2.48 L Hgb 7.5 L Hct 22.9 L RDW 16.0 H Plt Count 107 L Lymph % (Auto) [place] % (Auto) 10.7 H Lymph # 1.0 L Seg Neutrophils % Seg Neuts % (Manual) Lymphocytes % (Manual) Monocytes % (Manual) Nucleated RBC % Seg Neutrophils # Seg Neutrophils # Man Lymphocytes # (Manual) Monocytes # (Manual) PT INR D-Dimer Heparin Anti-Xa Level POC ABG pH ABG pH POC ABG pCO2 POC ABG pO2 ABG pO2 ABG HCO3 ABG O2 Saturation ABG Base Excess ABG Hemoglobin Oxyhemoglobin Sodium Potassium Chloride Carbon Dioxide BUN Creatinine Glucose POC Glucose 118 H 138 H Lactic Acid Calcium Ionized Calcium Phosphorus Magnesium Iron TIBC Ferritin Total Bilirubin Direct Bilirubin AST ALT Alkaline Phosphatase Total Creatine Kinase CK-MB (CK-2) Troponin T C-Reactive Protein Total Protein Albumin Triglycerides LDL Cholesterol Direct HDL Cholesterol Free T4 PTH Intact Urine WBC (Auto) Urine Creatinine Salicylates Acetaminophen Crossmatch 04/06/19 04/06/19 04/06/19 04:44 05:20 05:23 WBC RBC Hgb Hct RDW Plt Count Lymph % (Auto) [place] % (Auto) Lymph # Seg Neutrophils % Seg Neuts % (Manual) Lymphocytes % (Manual) Monocytes % (Manual) Nucleated RBC % Seg Neutrophils # Seg Neutrophils # Man Lymphocytes # (Manual) Monocytes # (Manual) PT INR D-Dimer Heparin Anti-Xa Level POC ABG pH ABG pH POC ABG pCO2 POC ABG pO2 ABG pO2 104.0 H ABG HCO3 ABG O2 Saturation ABG Base Excess -2.1 L ABG Hemoglobin 7.3 L Oxyhemoglobin Sodium Potassium Chloride Carbon Dioxide BUN 64 H Creatinine 8.2 H Glucose 103 H POC Glucose 118 H Lactic Acid Calcium 7.3 L Ionized Calcium Phosphorus Magnesium Iron TIBC Ferritin Total Bilirubin Direct Bilirubin AST ALT Alkaline Phosphatase Total Creatine Kinase CK-MB (CK-2) Troponin T C-Reactive Protein Total Protein Albumin Triglycerides LDL Cholesterol Direct HDL Cholesterol Free T4 PTH Intact Urine WBC (Auto) Urine Creatinine Salicylates Acetaminophen Crossmatch Chest x-ray: image reviewed Allied health notes reviewed: RT
--- NOTE | 2019-04-06 11:02 | Progress Note ---
Assessment and Plan Cont PO amio 400mg TID. Cont PO lopressor as tolerated. Monitor QT interval. No systemic AC regarding AFib in setting of anemia, thrombocytopenia, GI bleed. Continue supportive measures. Can consider ischemic evaluation if/when medically stabilized. Overall guarded prognosis. The patient has been seen in conjunction with Dr. Taylor who agrees with the assessment and plan of care. - Patient Problems (1) Cardiopulmonary arrest Current Visit: Yes Status: Acute (2) Acute respiratory failure Current Visit: Yes Status: Acute (3) Paroxysmal atrial fibrillation with RVR Current Visit: Yes Status: Acute (4) SVT (supraventricular tachycardia) Current Visit: Yes Status: Resolved (5) Torsades de pointes Current Visit: Yes Status: Acute (6) Ventricular tachycardia Current Visit: Yes Status: Acute (7) Encephalopathy Current Visit: Yes Status: Acute (8) Septic shock Current Visit: Yes Status: Acute (9) Aspiration pneumonia Current Visit: Yes Status: Acute (10) Meningitis Current Visit: Yes Status: Suspected (11) Cellulitis Current Visit: Yes Status: Acute (12) Acute renal failure Current Visit: Yes Status: Acute (13) GI bleed Current Visit: Yes Status: Acute (14) Anemia Current Visit: Yes Status: Acute (15) Thrombocytopenia Current Visit: Yes Status: Acute (16) DVT (deep venous thrombosis) Current Visit: Yes Status: Acute Subjective Date of service: 04/06/19 Principal diagnosis: anemia - IJ DVT Interval history: pt remains intubated, moving arms and legs, with some purposeful responses noted. in AFib with RVR HR 70s - 115 overnight. no family at bedside. currently receiving dialysis. Objective Last Vital Signs Temp 98.8 F 04/06/19 03:53 Pulse 115 H 04/06/19 10:45 Resp 18 04/06/19 08:00 BP 107/57 04/06/19 10:45 Pulse Ox 98 04/06/19 08:00 - Physical Examination General: Other (intubated, sedated) HEENT: Positive: PERRL Neck: Positive: neck supple Cardiac: Positive: irregularly irregular, S1/S2, Tachycardia Lungs: Positive: Decreased Breath Sounds Neuro: Positive: Other (intubated) Abdomen: Positive: Unremarkable /Rectal: Other (deferred) Skin: Positive: Clear Musculoskeletal: Decreased Range of Motion Extremities: Present: lower extr. pulses (weak, thready ) - Labs and Meds CBC 04/06/19 Range/Units 04:44 WBC 5.4 (4.5-11.0) K/mm3 RBC 2.48 L (3.65-5.03) M/mm3 Hgb 7.5 L (11.8-15.2) gm/dl Hct 22.9 L (35.5-45.6) % Plt Count 107 L (140-440) K/mm3 Lymph # 1.0 L (1.2-5.4) K/mm3 [place] # 0.6 (0.0-0.8) K/mm3 Eos # 0.0 (0.0-0.4) K/mm3 Baso # 0.0 (0.0-0.1) K/mm3 Comprehensive Metabolic Panel 04/06/19 Range/Units 04:44 Sodium 138 (137-145) mmol/L Potassium 3.8 (3.6-5.0) mmol/L Chloride 101.6 (98-107) mmol/L Carbon Dioxide 24 (22-30) mmol/L BUN 64 H (9-20) mg/dL Creatinine 8.2 H (0.8-1.5) mg/dL Glucose 103 H (75-100) mg/dL Calcium 7.3 L (8.4-10.2) mg/dL - Imaging and Cardiology Echo: report reviewed ( EF 40-45%, impaired relaxation. ) - Allied health notes Allied health notes reviewed: nursing
--- NOTE | 2019-04-06 16:46 | Progress Note ---
Assessment and Plan Patient is a 43 y/o man w/ a history of psychiatric illness (unknown which psychiatric diagnosis he has been given in the past), who presented on 03/16/19 with altered mental status. During the course of admission, patient was found to have sepsis with septic shock, rhabdomyolysis, RUBEN, and multiorgan failure. According to the patient's clinical findings, the patient likely has toxic metabolic encephalopathy. In support of this diagnosis, the multiple metabolic derangements including multiorgan failure, sepsis, septic shock requiring pressor support, RUBEN, rhabdomyolysis. Plan: 1. Metabolic encephalopathy: - Likely due to multiple underlying metabolic derangements, including multiorgan failure, sepsis, septic shock requiring pressor support, RUBEN. - Possible Meningo-encephalitis, however patient had been on Abx since admission, and is waking up when sedation held. LP not likely to be high yield at this point. - Patient on antibiotics per ID. - EEG showed generalized slowing, no seizures or epileptiform activity. - Continue supportive care per ICU/primary/ID teams. - Discussed at length with patient's brother regarding current neurologic status, altered mental status due to metabolic abnormalities and sepsis/shock. - Of note, patient has improvement in mental status today, as he is more awake/alert, and is more communicative with hands and nodding yes/no. - Will sign off as I'm not covering the neurology service over the weekend. Please consult neurologist who is covering neurology service over the weekend fo r further neurologic monitoring and management. Thank you for allowing me to take part in the care of this patient. Nahid Carroll MD Neurology Subjective Date of service: 04/06/19 Principal diagnosis: Metabolic Encephalopathy, GI bleed Interval history: Patient febrile overnight. Objective - Exam Narrative Exam: Patient is intubated. Opens eyes and nods head to vocal stimulus. Following 2- step commands by squeezing hand, gives thumbs up. PERRL, cough/gag intact. Withdraws to pain stimulus in all extremities. 2+ reflexes throughout. Patient attempted to write today, however was unable to write legibly. - Vital Sign Vital Signs - 12hr 04/06/19 04/06/19 04/06/19 05:00 05:11 05:30 Temperature Pulse Rate 73 74 74 Pulse Rate [ From Monitor] Respiratory 17 19 Rate Blood Pressure 99/48 99/48 100/46 O2 Sat by Pulse 93 100 94 Oximetry O2 Sat by Pulse Oximetry [ Anterior Bilateral Throughout] 04/06/19 04/06/19 04/06/19 06:00 06:30 07:00 Temperature Pulse Rate 74 73 76 Pulse Rate [ From Monitor] Respiratory 19 16 18 Rate Blood Pressure 103/55 107/55 110/55 O2 Sat by Pulse 100 100 100 Oximetry O2 Sat by Pulse Oximetry [ Anterior Bilateral Throughout] 04/06/19 04/06/19 04/06/19 07:16 07:27 07:30 Temperature Pulse Rate 77 81 78 Pulse Rate [ From Monitor] Respiratory 13 18 Rate Blood Pressure 110/55 111/58 111/58 O2 Sat by Pulse 96 100 100 Oximetry O2 Sat by Pulse Oximetry [ Anterior Bilateral Throughout] 04/06/19 04/06/19 04/06/19 07:45 07:46 07:55 Temperature 98.8 F Pulse Rate 75 75 81 Pulse Rate [ From Monitor] Respiratory 18 14 Rate Blood Pressure 111/58 111/58 110/65 O2 Sat by Pulse 100 Oximetry O2 Sat by Pulse 100 Oximetry [ Anterior Bilateral Throughout] 04/06/19 04/06/19 04/06/19 08:00 08:15 08:30 Temperature Pulse Rate 77 76 77 Pulse Rate [ 112 H From Monitor] Respiratory 14 13 15 Rate Blood Pressure 112/62 102/56 105/53 O2 Sat by Pulse 98 99 98 Oximetry O2 Sat by Pulse Oximetry [ Anterior Bilateral Throughout] 04/06/19 04/06/19 04/06/19 08:45 08:46 09:00 Temperature Pulse Rate 98 H 98 H 104 H Pulse Rate [ From Monitor] Respiratory 20 13 Rate Blood Pressure 90/51 90/51 92/62 O2 Sat by Pulse 96 98 Oximetry O2 Sat by Pulse Oximetry [ Anterior Bilateral Throughout] 04/06/19 04/06/19 04/06/19 09:15 09:30 09:45 Temperature Pulse Rate 112 H 115 H 107 H Pulse Rate [ From Monitor] Respiratory 16 20 14 Rate Blood Pressure 100/58 105/66 108/66 O2 Sat by Pulse 99 100 100 Oximetry O2 Sat by Pulse Oximetry [ Anterior Bilateral Throughout] 04/06/19 04/06/19 04/06/19 10:00 10:15 10:30 Temperature Pulse Rate 115 H 108 H 123 H Pulse Rate [ From Monitor] Respiratory 17 16 19 Rate Blood Pressure 107/57 92/62 108/66 O2 Sat by Pulse 96 98 96 Oximetry O2 Sat by Pulse Oximetry [ Anterior Bilateral Throughout] 04/06/19 04/06/19 04/06/19 10:45 11:00 11:16 Temperature Pulse Rate 106 H 108 H 106 H Pulse Rate [ From Monitor] Respiratory 17 14 14 Rate Blood Pressure 93/72 90/66 113/65 O2 Sat by Pulse 100 100 100 Oximetry O2 Sat by Pulse Oximetry [ Anterior Bilateral Throughout] 04/06/19 04/06/19 04/06/19 11:30 11:45 12:00 Temperature Pulse Rate 110 H 112 H 108 H Pulse Rate [ 104 H From Monitor] Respiratory 14 16 14 Rate Blood Pressure 99/63 88/55 97/58 O2 Sat by Pulse 100 99 98 Oximetry O2 Sat by Pulse Oximetry [ Anterior Bilateral Throughout] 04/06/19 04/06/19 04/06/19 12:15 12:20 12:30 Temperature Pulse Rate 117 H 113 H 104 H Pulse Rate [ From Monitor] Respiratory 15 16 12 Rate Blood Pressure 105/51 105/51 114/54 O2 Sat by Pulse 99 100 99 Oximetry O2 Sat by Pulse Oximetry [ Anterior Bilateral Throughout] 04/06/19 04/06/19 04/06/19 12:43 12:45 13:00 Temperature 98.3 F Pulse Rate 118 H 108 H Pulse Rate [ From Monitor] Respiratory 13 18 Rate Blood Pressure 108/54 97/55 O2 Sat by Pulse 99 98 Oximetry O2 Sat by Pulse Oximetry [ Anterior Bilateral Throughout] 04/06/19 16:05 Temperature Pulse Rate 115 H Pulse Rate [ From Monitor] Respiratory 15 Rate Blood Pressure 99/49 O2 Sat by Pulse 100 Oximetry O2 Sat by Pulse Oximetry [ Anterior Bilateral Throughout] - General Apperance Constitutional: acutely ill - EENT EENT: ATNC, PERRL, mucous membranes moist, hearing intact, vision intact - Respiratory Respiratory: decreased breath sounds - Cardiovascular Cardiovascular: regular rate, normal S1, normal S2 Extremities: no clubbing, cyanosis, no inflammation - Gastrointestinal Gastrointestinal: normoactive bowel sounds, soft, non-tender - Laboratory Findings CBC and BMP: 04/06/19 04:44 04/06/19 04:44 Abnormal Lab Findings: Abnormal Labs 03/16/19 03/16/19 03/16/19 15:32 16:03 16:05 WBC 27.0 H RBC 5.55 H Hgb 15.7 H Hct 47.1 H RDW Plt Count 75 L Lymph % (Auto) [place] % (Auto) Lymph # Seg Neutrophils % Seg Neuts % (Manual) 85.0 H Lymphocytes % (Manual) 2.0 L Monocytes % (Manual) Nucleated RBC % Seg Neutrophils # Seg Neutrophils # Man 23.0 H Lymphocytes # (Manual) 0.5 L Monocytes # (Manual) PT INR D-Dimer Heparin Anti-Xa Level POC ABG pH ABG pH POC ABG pCO2 POC ABG pO2 ABG pO2 ABG HCO3 ABG O2 Saturation ABG Base Excess ABG Hemoglobin Oxyhemoglobin Sodium 127 L Potassium Chloride 87.8 L Carbon Dioxide 17 L BUN 49 H Creatinine 5.8 H Glucose 150 H POC Glucose 118 H Lactic Acid Calcium 6.6 L Ionized Calcium Phosphorus Magnesium 1.10 L Iron TIBC Ferritin Total Bilirubin Direct Bilirubin AST ALT Alkaline Phosphatase Total Creatine Kinase 39114 H CK-MB (CK-2) Troponin T C-Reactive Protein Total Protein Albumin Triglycerides LDL Cholesterol Direct HDL Cholesterol Free T4 PTH Intact Urine WBC (Auto) Urine Creatinine Salicylates Acetaminophen Crossmatch 03/16/19 03/16/19 03/16/19 16:59 17:05 17:05 WBC RBC Hgb Hct RDW Plt Count Lymph % (Auto) [place] % (Auto) Lymph # Seg Neutrophils % Seg Neuts % (Manual) Lymphocytes % (Manual) Monocytes % (Manual) Nucleated RBC % Seg Neutrophils # Seg Neutrophils # Man Lymphocytes # (Manual) Monocytes # (Manual) PT INR D-Dimer Heparin Anti-Xa Level POC ABG pH 7.297 L ABG pH POC ABG pCO2 33.0 L POC ABG pO2 ABG pO2 ABG HCO3 ABG O2 Saturation ABG Base Excess ABG Hemoglobin Oxyhemoglobin Sodium Potassium Chloride Carbon Dioxide BUN Creatinine Glucose POC Glucose Lactic Acid Calcium Ionized Calcium Phosphorus Magnesium Iron TIBC Ferritin Total Bilirubin Direct Bilirubin AST ALT Alkaline Phosphatase Total Creatine Kinase 80865 H CK-MB (CK-2) 83.1 H Troponin T C-Reactive Protein Total Protein Albumin Triglycerides LDL Cholesterol Direct HDL Cholesterol Free T4 0.72 L PTH Intact Urine WBC (Auto) Urine Creatinine Salicylates Acetaminophen Crossmatch 03/16/19 03/16/19 03/16/19 17:05 17:05 17:05 WBC RBC Hgb Hct RDW Plt Count Lymph % (Auto) [place] % (Auto) Lymph # Seg Neutrophils % Seg Neuts % (Manual) Lymphocytes % (Manual) Monocytes % (Manual) Nucleated RBC % Seg Neutrophils # Seg Neutrophils # Man Lymphocytes # (Manual) Monocytes # (Manual) PT INR D-Dimer Heparin Anti-Xa Level POC ABG pH ABG pH POC ABG pCO2 POC ABG pO2 ABG pO2 ABG HCO3 ABG O2 Saturation ABG Base Excess ABG Hemoglobin Oxyhemoglobin Sodium Potassium Chloride Carbon Dioxide BUN Creatinine Glucose POC Glucose Lactic Acid 5.10 H* Calcium Ionized Calcium Phosphorus Magnesium Iron TIBC Ferritin Total Bilirubin Direct Bilirubin AST ALT Alkaline Phosphatase Total Creatine Kinase CK-MB (CK-2) Troponin T C-Reactive Protein Total Protein Albumin Triglycerides LDL Cholesterol Direct HDL Cholesterol Free T4 PTH Intact Urine WBC (Auto) Urine Creatinine Salicylates < 0.3 L Acetaminophen < 5.0 L Crossmatch 03/16/19 03/16/19 03/16/19 17:05 17:05 20:35 WBC RBC Hgb Hct RDW Plt Count Lymph % (Auto) [place] % (Auto) Lymph # Seg Neutrophils % Seg Neuts % (Manual) Lymphocytes % (Manual) Monocytes % (Manual) Nucleated RBC % Seg Neutrophils # Seg Neutrophils # Man Lymphocytes # (Manual) Monocytes # (Manual) PT 15.9 H INR 1.30 H D-Dimer Heparin Anti-Xa Level POC ABG pH ABG pH POC ABG pCO2 POC ABG pO2 ABG pO2 ABG HCO3 ABG O2 Saturation ABG Base Excess ABG Hemoglobin Oxyhemoglobin Sodium Potassium Chloride Carbon Dioxide BUN Creatinine Glucose POC Glucose Lactic Acid 3.30 H* Calcium Ionized Calcium Phosphorus Magnesium Iron TIBC Ferritin Total Bilirubin 6.20 H Direct Bilirubin 5.9 H AST 800 H ALT 120 H Alkaline Phosphatase Total Creatine Kinase CK-MB (CK-2) Troponin T C-Reactive Protein Total Protein 4.4 L Albumin 2.4 L Triglycerides LDL Cholesterol Direct HDL Cholesterol Free T4 PTH Intact Urine WBC (Auto) Urine Creatinine Salicylates Acetaminophen Crossmatch 03/16/19 03/16/19 03/16/19 21:45 22:32 Unknown WBC RBC Hgb Hct RDW Plt Count Lymph % (Auto) [place] % (Auto) Lymph # Seg Neutrophils % Seg Neuts % (Manual) Lymphocytes % (Manual) Monocytes % (Manual) Nucleated RBC % Seg Neutrophils # Seg Neutrophils # Man Lymphocytes # (Manual) Monocytes # (Manual) PT INR D-Dimer Heparin Anti-Xa Level POC ABG pH ABG pH POC ABG pCO2 POC ABG pO2 ABG pO2 ABG HCO3 ABG O2 Saturation ABG Base Excess ABG Hemoglobin Oxyhemoglobin Sodium Potassium Chloride Carbon Dioxide BUN Creatinine Glucose POC Glucose Lactic Acid 3.30 H* 3.00 H* Calcium Ionized Calcium Phosphorus Magnesium Iron TIBC Ferritin Total Bilirubin Direct Bilirubin AST ALT Alkaline Phosphatase Total Creatine Kinase CK-MB (CK-2) Troponin T 0.047 H D C-Reactive Protein Total Protein Albumin Triglycerides 395 H LDL Cholesterol Direct 10 L HDL Cholesterol 7 L Free T4 PTH Intact Urine WBC (Auto) Urine Creatinine Salicylates Acetaminophen Crossmatch 03/17/19 03/17/19 03/17/19 03:45 03:45 03:45 WBC RBC Hgb Hct RDW Plt Count Lymph % (Auto) [place] % (Auto) Lymph # Seg Neutrophils % Seg Neuts % (Manual) Lymphocytes % (Manual) Monocytes % (Manual) Nucleated RBC % Seg Neutrophils # Seg Neutrophils # Man Lymphocytes # (Manual) Monocytes # (Manual) PT INR D-Dimer Heparin Anti-Xa Level POC ABG pH ABG pH POC ABG pCO2 POC ABG pO2 ABG pO2 ABG HCO3 ABG O2 Saturation ABG Base Excess ABG Hemoglobin Oxyhemoglobin Sodium 131 L Potassium Chloride 88.9 L Carbon Dioxide BUN 53 H Creatinine 7.1 H Glucose POC Glucose Lactic Acid 4.10 H* Calcium 5.4 L* D Ionized Calcium Phosphorus 7.30 H Magnesium 1.60 L Iron TIBC Ferritin Total Bilirubin 5.90 H Direct Bilirubin AST 801 H ALT 109 H Alkaline Phosphatase Total Creatine Kinase 42170 H 16134 H CK-MB (CK-2) 41.5 H Troponin T 0.054 H C-Reactive Protein Total Protein 4.5 L Albumin 2.0 L Triglycerides LDL Cholesterol Direct HDL Cholesterol Free T4 PTH Intact Urine WBC (Auto) Urine Creatinine Salicylates Acetaminophen Crossmatch 03/17/19 03/17/19 03/17/19 05:47 07:16 07:16 WBC RBC Hgb Hct RDW Plt Count Lymph % (Auto) [place] % (Auto) Lymph # Seg Neutrophils % Seg Neuts % (Manual) Lymphocytes % (Manual) Monocytes % (Manual) Nucleated RBC % Seg Neutrophils # Seg Neutrophils # Man Lymphocytes # (Manual) Monocytes # (Manual) PT INR D-Dimer Heparin Anti-Xa Level POC ABG pH 7.193 L ABG pH POC ABG pCO2 45.2 H POC ABG pO2 65 L ABG pO2 ABG HCO3 ABG O2 Saturation ABG Base Excess ABG Hemoglobin Oxyhemoglobin Sodium Potassium Chloride Carbon Dioxide BUN Creatinine Glucose POC Glucose Lactic Acid 5.50 H* Calcium Ionized Calcium Phosphorus Magnesium Iron TIBC Ferritin Total Bilirubin Direct Bilirubin AST ALT Alkaline Phosphatase Total Creatine Kinase 90671 H CK-MB (CK-2) 54.3 H Troponin T 0.058 H C-Reactive Protein Total Protein Albumin Triglycerides LDL Cholesterol Direct HDL Cholesterol Free T4 PTH Intact Urine WBC (Auto) Urine Creatinine Salicylates Acetaminophen Crossmatch 03/17/19 03/17/19 03/17/19 11:52 12:51 13:01 WBC RBC Hgb Hct RDW Plt Count Lymph % (Auto) [place] % (Auto) Lymph # Seg Neutrophils % Seg Neuts % (Manual) Lymphocytes % (Manual) Monocytes % (Manual) Nucleated RBC % Seg Neutrophils # Seg Neutrophils # Man Lymphocytes # (Manual) Monocytes # (Manual) PT INR D-Dimer Heparin Anti-Xa Level POC ABG pH 7.154 L ABG pH POC ABG pCO2 34.3 L POC ABG pO2 73 L ABG pO2 ABG HCO3 ABG O2 Saturation ABG Base Excess ABG Hemoglobin Oxyhemoglobin Sodium Potassium Chloride Carbon Dioxide BUN Creatinine Glucose POC Glucose 60 L Lactic Acid 8.20 H* Calcium Ionized Calcium Phosphorus Magnesium Iron TIBC Ferritin Total Bilirubin Direct Bilirubin AST ALT Alkaline Phosphatase Total Creatine Kinase CK-MB (CK-2) Troponin T C-Reactive Protein Total Protein Albumin Triglycerides LDL Cholesterol Direct HDL Cholesterol Free T4 PTH Intact Urine WBC (Auto) Urine Creatinine Salicylates Acetaminophen Crossmatch 03/17/19 03/17/19 03/17/19 14:37 14:37 14:37 WBC 29.3 H RBC Hgb Hct RDW 15.8 H Plt Count 45 L Lymph % (Auto) [place] % (Auto) Lymph # Seg Neutrophils % Seg Neuts % (Manual) 81.0 H Lymphocytes % (Manual) 1.0 L Monocytes % (Manual) 15.0 H Nucleated RBC % Seg Neutrophils # Seg Neutrophils # Man 23.7 H Lymphocytes # (Manual) 0.3 L Monocytes # (Manual) 4.4 H PT INR D-Dimer Heparin Anti-Xa Level POC ABG pH ABG pH POC ABG pCO2 POC ABG pO2 ABG pO2 ABG HCO3 ABG O2 Saturation ABG Base Excess ABG Hemoglobin Oxyhemoglobin Sodium Potassium Chloride Carbon Dioxide BUN Creatinine Glucose POC Glucose Lactic Acid 4.90 H* Calcium Ionized Calcium Phosphorus Magnesium Iron TIBC Ferritin Total Bilirubin Direct Bilirubin AST ALT Alkaline Phosphatase Total Creatine Kinase CK-MB (CK-2) Troponin T C-Reactive Protein 24.90 H Total Protein Albumin Triglycerides LDL Cholesterol Direct HDL Cholesterol Free T4 PTH Intact Urine WBC (Auto) Urine Creatinine Salicylates Acetaminophen Crossmatch 03/17/19 03/17/19 03/17/19 16:05 16:05 17:02 WBC RBC Hgb Hct RDW Plt Count Lymph % (Auto) [place] % (Auto) Lymph # Seg Neutrophils % Seg Neuts % (Manual) Lymphocytes % (Manual) Monocytes % (Manual) Nucleated RBC % Seg Neutrophils # Seg Neutrophils # Man Lymphocytes # (Manual) Monocytes # (Manual) PT INR D-Dimer Heparin Anti-Xa Level POC ABG pH 7.183 L ABG pH POC ABG pCO2 POC ABG pO2 65 L ABG pO2 ABG HCO3 ABG O2 Saturation ABG Base Excess ABG Hemoglobin Oxyhemoglobin Sodium Potassium Chloride Carbon Dioxide BUN Creatinine Glucose POC Glucose Lactic Acid Calcium Ionized Calcium Phosphorus Magnesium Iron TIBC Ferritin Total Bilirubin Direct Bilirubin AST ALT Alkaline Phosphatase Total Creatine Kinase CK-MB (CK-2) Troponin T C-Reactive Protein Total Protein Albumin Triglycerides LDL Cholesterol Direct HDL Cholesterol Free T4 PTH Intact Urine WBC (Auto) 30.0 H Urine Creatinine 106.6 H Salicylates Acetaminophen Crossmatch 03/18/19 03/18/19 03/18/19 05:12 05:16 05:53 WBC RBC Hgb Hct RDW Plt Count Lymph % (Auto) [place] % (Auto) Lymph # Seg Neutrophils % Seg Neuts % (Manual) Lymphocytes % (Manual) Monocytes % (Manual) Nucleated RBC % Seg Neutrophils # Seg Neutrophils # Man Lymphocytes # (Manual) Monocytes # (Manual) PT INR D-Dimer Heparin Anti-Xa Level POC ABG pH 7.257 L ABG pH POC ABG pCO2 31.6 L POC ABG pO2 69 L ABG pO2 ABG HCO3 ABG O2 Saturation ABG Base Excess ABG Hemoglobin Oxyhemoglobin Sodium Potassium Chloride Carbon Dioxide BUN Creatinine Glucose POC Glucose 141 H Lactic Acid 5.00 H* Calcium Ionized Calcium Phosphorus Magnesium Iron TIBC Ferritin Total Bilirubin Direct Bilirubin AST ALT Alkaline Phosphatase Total Creatine Kinase CK-MB (CK-2) Troponin T C-Reactive Protein Total Protein Albumin Triglycerides LDL Cholesterol Direct HDL Cholesterol Free T4 PTH Intact Urine WBC (Auto) Urine Creatinine Salicylates Acetaminophen Crossmatch 03/18/19 03/18/19 03/18/19 06:57 08:40 08:40 WBC 31.7 H RBC Hgb Hct RDW 15.5 H Plt Count 35 L Lymph % (Auto) [place] % (Auto) Lymph # Seg Neutrophils % Seg Neuts % (Manual) Lymphocytes % (Manual) Monocytes % (Manual) Nucleated RBC % Seg Neutrophils # Seg Neutrophils # Man Lymphocytes # (Manual) Monocytes # (Manual) PT INR D-Dimer Heparin Anti-Xa Level POC ABG pH ABG pH POC ABG pCO2 POC ABG pO2 ABG pO2 ABG HCO3 ABG O2 Saturation ABG Base Excess ABG Hemoglobin Oxyhemoglobin Sodium 132 L Potassium 5.5 H D Chloride 88.5 L Carbon Dioxide 18 L BUN 71 H Creatinine 8.1 H Glucose 205 H POC Glucose Lactic Acid 5.00 H* Calcium 4.1 L* D Ionized Calcium Phosphorus Magnesium 2.40 H Iron TIBC Ferritin Total Bilirubin 7.50 H Direct Bilirubin AST 1088 H ALT 159 H Alkaline Phosphatase 190 H Total Creatine Kinase 402246 H CK-MB (CK-2) Troponin T C-Reactive Protein Total Protein 4.7 L Albumin 1.8 L Triglycerides LDL Cholesterol Direct HDL Cholesterol Free T4 PTH Intact Urine WBC (Auto) Urine Creatinine Salicylates Acetaminophen Crossmatch 03/18/19 03/18/19 03/18/19 12:33 12:50 13:19 WBC RBC Hgb Hct RDW Plt Count Lymph % (Auto) [place] % (Auto) Lymph # Seg Neutrophils % Seg Neuts % (Manual) Lymphocytes % (Manual) Monocytes % (Manual) Nucleated RBC % Seg Neutrophils # Seg Neutrophils # Man Lymphocytes # (Manual) Monocytes # (Manual) PT INR D-Dimer Heparin Anti-Xa Level POC ABG pH 7.282 L ABG pH POC ABG pCO2 POC ABG pO2 67 L ABG pO2 ABG HCO3 ABG O2 Saturation ABG Base Excess ABG Hemoglobin Oxyhemoglobin Sodium Potassium Chloride Carbon Dioxide BUN Creatinine Glucose POC Glucose 129 H Lactic Acid 3.30 H* Calcium Ionized Calcium Phosphorus Magnesium Iron TIBC Ferritin Total Bilirubin Direct Bilirubin AST ALT Alkaline Phosphatase Total Creatine Kinase CK-MB (CK-2) Troponin T C-Reactive Protein Total Protein Albumin Triglycerides LDL Cholesterol Direct HDL Cholesterol Free T4 PTH Intact Urine WBC (Auto) Urine Creatinine Salicylates Acetaminophen Crossmatch 03/18/19 03/18/19 03/18/19 13:19 16:50 18:11 WBC RBC Hgb Hct RDW Plt Count Lymph % (Auto) [place] % (Auto) Lymph # Seg Neutrophils % Seg Neuts % (Manual) Lymphocytes % (Manual) Monocytes % (Manual) Nucleated RBC % Seg Neutrophils # Seg Neutrophils # Man Lymphocytes # (Manual) Monocytes # (Manual) PT INR D-Dimer Heparin Anti-Xa Level POC ABG pH ABG pH POC ABG pCO2 POC ABG pO2 59 L ABG pO2 ABG HCO3 ABG O2 Saturation ABG Base Excess ABG Hemoglobin Oxyhemoglobin Sodium Potassium Chloride Carbon Dioxide BUN Creatinine Glucose POC Glucose 151 H Lactic Acid Calcium 4.2 L* Ionized Calcium Phosphorus Magnesium Iron TIBC Ferritin Total Bilirubin Direct Bilirubin AST ALT Alkaline Phosphatase Total Creatine Kinase 393901 H CK-MB (CK-2) Troponin T C-Reactive Protein Total Protein Albumin Triglycerides LDL Cholesterol Direct HDL Cholesterol Free T4 PTH Intact Urine WBC (Auto) Urine Creatinine Salicylates Acetaminophen Crossmatch 03/18/19 03/18/19 03/19/19 18:20 23:39 01:42 WBC RBC Hgb Hct RDW Plt Count Lymph % (Auto) [place] % (Auto) Lymph # Seg Neutrophils % Seg Neuts % (Manual) Lymphocytes % (Manual) Monocytes % (Manual) Nucleated RBC % Seg Neutrophils # Seg Neutrophils # Man Lymphocytes # (Manual) Monocytes # (Manual) PT INR D-Dimer Heparin Anti-Xa Level POC ABG pH 7.345 L ABG pH 7.285 L POC ABG pCO2 POC ABG pO2 59 L ABG pO2 44.0 L ABG HCO3 ABG O2 Saturation 70.9 L ABG Base Excess -5.7 L ABG Hemoglobin 11.9 L Oxyhemoglobin 69.6 L Sodium Potassium Chloride Carbon Dioxide BUN Creatinine Glucose POC Glucose 152 H Lactic Acid Calcium Ionized Calcium Phosphorus Magnesium Iron TIBC Ferritin Total Bilirubin Direct Bilirubin AST ALT Alkaline Phosphatase Total Creatine Kinase CK-MB (CK-2) Troponin T C-Reactive Protein Total Protein Albumin Triglycerides LDL Cholesterol Direct HDL Cholesterol Free T4 PTH Intact Urine WBC (Auto) Urine Creatinine Salicylates Acetaminophen Crossmatch 03/19/19 03/19/19 03/19/19 04:00 04:00 05:35 WBC 36.5 H RBC Hgb Hct RDW 15.8 H Plt Count 35 L Lymph % (Auto) [place] % (Auto) Lymph # Seg Neutrophils % Seg Neuts % (Manual) Lymphocytes % (Manual) Monocytes % (Manual) Nucleated RBC % Seg Neutrophils # Seg Neutrophils # Man Lymphocytes # (Manual) Monocytes # (Manual) PT INR D-Dimer Heparin Anti-Xa Level POC ABG pH ABG pH 7.265 L POC ABG pCO2 POC ABG pO2 ABG pO2 35.4 L* ABG HCO3 ABG O2 Saturation 54.4 L ABG Base Excess -6.7 L ABG Hemoglobin 12.9 L Oxyhemoglobin 53.4 L Sodium 132 L Potassium 5.7 H Chloride 89.8 L Carbon Dioxide 19 L BUN 62 H Creatinine 6.4 H Glucose 151 H POC Glucose Lactic Acid Calcium 5.2 L* D Ionized Calcium Phosphorus Magnesium Iron TIBC Ferritin Total Bilirubin 7.80 H Direct Bilirubin AST 682 H ALT 130 H Alkaline Phosphatase 167 H Total Creatine Kinase CK-MB (CK-2) Troponin T C-Reactive Protein Total Protein 4.8 L Albumin 2.3 L Triglycerides LDL Cholesterol Direct HDL Cholesterol Free T4 PTH Intact Urine WBC (Auto) Urine Creatinine Salicylates Acetaminophen Crossmatch 03/19/19 03/19/19 03/19/19 05:49 09:16 09:50 WBC RBC Hgb Hct RDW Plt Count Lymph % (Auto) [place] % (Auto) Lymph # Seg Neutrophils % Seg Neuts % (Manual) Lymphocytes % (Manual) Monocytes % (Manual) Nucleated RBC % Seg Neutrophils # Seg Neutrophils # Man Lymphocytes # (Manual) Monocytes # (Manual) PT INR D-Dimer Heparin Anti-Xa Level POC ABG pH 7.222 L ABG pH POC ABG pCO2 56.6 H POC ABG pO2 ABG pO2 ABG HCO3 ABG O2 Saturation ABG Base Excess ABG Hemoglobin Oxyhemoglobin Sodium Potassium Chloride Carbon Dioxide BUN Creatinine Glucose POC Glucose 154 H Lactic Acid 2.70 H* Calcium Ionized Calcium Phosphorus Magnesium Iron TIBC Ferritin Total Bilirubin Direct Bilirubin AST ALT Alkaline Phosphatase Total Creatine Kinase CK-MB (CK-2) Troponin T C-Reactive Protein Total Protein Albumin Triglycerides LDL Cholesterol Direct HDL Cholesterol Free T4 PTH Intact Urine WBC (Auto) Urine Creatinine Salicylates Acetaminophen Crossmatch 09/23/19 09/23/19 09/23/19 09:50 11:28 17:58 WBC RBC Hgb Hct RDW Plt Count Lymph % (Auto) [place] % (Auto) Lymph # Seg Neutrophils % Seg Neuts % (Manual) Lymphocytes % (Manual) Monocytes % (Manual) Nucleated RBC % Seg Neutrophils # Seg Neutrophils # Man Lymphocytes # (Manual) Monocytes # (Manual) PT INR D-Dimer Heparin Anti-Xa Level POC ABG pH 7.250 L ABG pH POC ABG pCO2 52.6 H POC ABG pO2 ABG pO2 ABG HCO3 ABG O2 Saturation ABG Base Excess ABG Hemoglobin Oxyhemoglobin Sodium Potassium Chloride Carbon Dioxide BUN Creatinine Glucose POC Glucose 160 H Lactic Acid Calcium Ionized Calcium Phosphorus Magnesium Iron TIBC Ferritin Total Bilirubin Direct Bilirubin AST ALT Alkaline Phosphatase Total Creatine Kinase 32777 H CK-MB (CK-2) Troponin T C-Reactive Protein Total Protein Albumin Triglycerides LDL Cholesterol Direct HDL Cholesterol Free T4 PTH Intact Urine WBC (Auto) Urine Creatinine Salicylates Acetaminophen Crossmatch 03/19/19 03/19/19 03/20/19 19:48 21:03 02:16 WBC RBC Hgb Hct RDW Plt Count Lymph % (Auto) [place] % (Auto) Lymph # Seg Neutrophils % Seg Neuts % (Manual) Lymphocytes % (Manual) Monocytes % (Manual) Nucleated RBC % Seg Neutrophils # Seg Neutrophils # Man Lymphocytes # (Manual) Monocytes # (Manual) PT INR D-Dimer Heparin Anti-Xa Level POC ABG pH 7.279 L ABG pH POC ABG pCO2 50.3 H POC ABG pO2 129 H ABG pO2 ABG HCO3 ABG O2 Saturation ABG Base Excess ABG Hemoglobin Oxyhemoglobin Sodium Potassium Chloride Carbon Dioxide BUN Creatinine Glucose POC Glucose 119 H 119 H Lactic Acid Calcium Ionized Calcium Phosphorus Magnesium Iron TIBC Ferritin Total Bilirubin Direct Bilirubin AST ALT Alkaline Phosphatase Total Creatine Kinase CK-MB (CK-2) Troponin T C-Reactive Protein Total Protein Albumin Triglycerides LDL Cholesterol Direct HDL Cholesterol Free T4 PTH Intact Urine WBC (Auto) Urine Creatinine Salicylates Acetaminophen Crossmatch 03/20/19 03/20/19 03/20/19 04:23 05:05 09:30 WBC 36.3 H RBC Hgb Hct RDW 15.5 H Plt Count 29 L Lymph % (Auto) [place] % (Auto) Lymph # Seg Neutrophils % Seg Neuts % (Manual) Lymphocytes % (Manual) Monocytes % (Manual) Nucleated RBC % Seg Neutrophils # Seg Neutrophils # Man Lymphocytes # (Manual) Monocytes # (Manual) PT INR D-Dimer Heparin Anti-Xa Level POC ABG pH ABG pH POC ABG pCO2 POC ABG pO2 280 H ABG pO2 ABG HCO3 ABG O2 Saturation ABG Base Excess ABG Hemoglobin Oxyhemoglobin Sodium Potassium Chloride Carbon Dioxide BUN Creatinine Glucose POC Glucose 115 H Lactic Acid Calcium Ionized Calcium Phosphorus Magnesium Iron TIBC Ferritin Total Bilirubin Direct Bilirubin AST ALT Alkaline Phosphatase Total Creatine Kinase CK-MB (CK-2) Troponin T C-Reactive Protein Total Protein Albumin Triglycerides LDL Cholesterol Direct HDL Cholesterol Free T4 PTH Intact Urine WBC (Auto) Urine Creatinine Salicylates Acetaminophen Crossmatch 03/20/19 03/20/19 03/20/19 09:30 09:30 11:34 WBC RBC Hgb Hct RDW Plt Count Lymph % (Auto) [place] % (Auto) Lymph # Seg Neutrophils % Seg Neuts % (Manual) Lymphocytes % (Manual) Monocytes % (Manual) Nucleated RBC % Seg Neutrophils # Seg Neutrophils # Man Lymphocytes # (Manual) Monocytes # (Manual) PT INR D-Dimer Heparin Anti-Xa Level POC ABG pH ABG pH POC ABG pCO2 POC ABG pO2 ABG pO2 ABG HCO3 ABG O2 Saturation ABG Base Excess ABG Hemoglobin Oxyhemoglobin Sodium 131 L Potassium Chloride 92.3 L Carbon Dioxide 20 L BUN 68 H Creatinine 6.1 H Glucose 164 H POC Glucose 141 H Lactic Acid Calcium 5.3 L* Ionized Calcium Phosphorus Magnesium Iron TIBC Ferritin Total Bilirubin 9.50 H Direct Bilirubin AST 381 H ALT 116 H Alkaline Phosphatase 255 H Total Creatine Kinase 52439 H CK-MB (CK-2) Troponin T C-Reactive Protein Total Protein 5.1 L Albumin 2.3 L Triglycerides LDL Cholesterol Direct HDL Cholesterol Free T4 PTH Intact Urine WBC (Auto) Urine Creatinine Salicylates Acetaminophen Crossmatch 03/20/19 03/20/19 03/20/19 14:41 14:45 18:50 WBC RBC Hgb Hct RDW Plt Count Lymph % (Auto) [place] % (Auto) Lymph # Seg Neutrophils % Seg Neuts % (Manual) Lymphocytes % (Manual) Monocytes % (Manual) Nucleated RBC % Seg Neutrophils # Seg Neutrophils # Man Lymphocytes # (Manual) Monocytes # (Manual) PT INR D-Dimer Heparin Anti-Xa Level POC ABG pH ABG pH POC ABG pCO2 POC ABG pO2 ABG pO2 ABG HCO3 ABG O2 Saturation ABG Base Excess ABG Hemoglobin Oxyhemoglobin Sodium Potassium Chloride Carbon Dioxide BUN Creatinine Glucose POC Glucose 117 H Lactic Acid 2.90 H* Calcium Ionized Calcium Phosphorus Magnesium Iron TIBC Ferritin Total Bilirubin Direct Bilirubin AST ALT Alkaline Phosphatase Total Creatine Kinase CK-MB (CK-2) Troponin T C-Reactive Protein 13.30 H Total Protein Albumin Triglycerides LDL Cholesterol Direct HDL Cholesterol Free T4 PTH Intact Urine WBC (Auto) Urine Creatinine Salicylates Acetaminophen Crossmatch 03/20/19 03/21/19 03/21/19 21:55 04:26 04:26 WBC 37.8 H RBC Hgb Hct RDW 15.4 H Plt Count 36 L Lymph % (Auto) [place] % (Auto) Lymph # Seg Neutrophils % Seg Neuts % (Manual) 93.0 H Lymphocytes % (Manual) 3.0 L Monocytes % (Manual) Nucleated RBC % 1.0 H Seg Neutrophils # 34.6 H Seg Neutrophils # Man 35.2 H Lymphocytes # (Manual) 1.1 L Monocytes # (Manual) PT INR D-Dimer Heparin Anti-Xa Level POC ABG pH ABG pH POC ABG pCO2 POC ABG pO2 ABG pO2 ABG HCO3 ABG O2 Saturation ABG Base Excess ABG Hemoglobin Oxyhemoglobin Sodium 131 L Potassium Chloride 90.7 L Carbon Dioxide 21 L BUN 69 H Creatinine 5.7 H Glucose 170 H POC Glucose 128 H Lactic Acid Calcium 6.1 L D Ionized Calcium Phosphorus Magnesium Iron TIBC Ferritin Total Bilirubin 9.50 H Direct Bilirubin AST 308 H ALT 124 H Alkaline Phosphatase 327 H Total Creatine Kinase 85022 H CK-MB (CK-2) Troponin T C-Reactive Protein Total Protein 5.7 L Albumin 2.6 L Triglycerides LDL Cholesterol Direct HDL Cholesterol Free T4 PTH Intact Urine WBC (Auto) Urine Creatinine Salicylates Acetaminophen Crossmatch 03/21/19 03/21/19 03/21/19 05:17 05:39 08:29 WBC RBC Hgb Hct RDW Plt Count Lymph % (Auto) [place] % (Auto) Lymph # Seg Neutrophils % Seg Neuts % (Manual) Lymphocytes % (Manual) Monocytes % (Manual) Nucleated RBC % Seg Neutrophils # Seg Neutrophils # Man Lymphocytes # (Manual) Monocytes # (Manual) PT INR D-Dimer Heparin Anti-Xa Level POC ABG pH ABG pH POC ABG pCO2 POC ABG pO2 209 H ABG pO2 ABG HCO3 ABG O2 Saturation ABG Base Excess ABG Hemoglobin Oxyhemoglobin Sodium Potassium Chloride Carbon Dioxide BUN Creatinine Glucose POC Glucose 145 H Lactic Acid Calcium Ionized Calcium Phosphorus Magnesium Iron TIBC Ferritin Total Bilirubin Direct Bilirubin AST ALT Alkaline Phosphatase Total Creatine Kinase 68380 H CK-MB (CK-2) Troponin T C-Reactive Protein Total Protein Albumin Triglycerides LDL Cholesterol Direct HDL Cholesterol Free T4 PTH Intact Urine WBC (Auto) Urine Creatinine Salicylates Acetaminophen Crossmatch 03/21/19 03/21/19 03/21/19 08:29 11:43 12:00 WBC RBC Hgb Hct RDW Plt Count Lymph % (Auto) [place] % (Auto) Lymph # Seg Neutrophils % Seg Neuts % (Manual) Lymphocytes % (Manual) Monocytes % (Manual) Nucleated RBC % Seg Neutrophils # Seg Neutrophils # Man Lymphocytes # (Manual) Monocytes # (Manual) PT INR D-Dimer Heparin Anti-Xa Level POC ABG pH ABG pH POC ABG pCO2 POC ABG pO2 ABG pO2 ABG HCO3 ABG O2 Saturation ABG Base Excess ABG Hemoglobin Oxyhemoglobin Sodium Potassium Chloride Carbon Dioxide BUN Creatinine Glucose POC Glucose 123 H Lactic Acid 2.60 H* 2.20 H* Calcium Ionized Calcium Phosphorus Magnesium Iron TIBC Ferritin Total Bilirubin Direct Bilirubin AST ALT Alkaline Phosphatase Total Creatine Kinase CK-MB (CK-2) Troponin T C-Reactive Protein Total Protein Albumin Triglycerides LDL Cholesterol Direct HDL Cholesterol Free T4 PTH Intact Urine WBC (Auto) Urine Creatinine Salicylates Acetaminophen Crossmatch 03/21/19 03/21/19 03/21/19 14:11 18:28 19:32 WBC RBC Hgb Hct RDW Plt Count Lymph % (Auto) [place] % (Auto) Lymph # Seg Neutrophils % Seg Neuts % (Manual) Lymphocytes % (Manual) Monocytes % (Manual) Nucleated RBC % Seg Neutrophils # Seg Neutrophils # Man Lymphocytes # (Manual) Monocytes # (Manual) PT INR D-Dimer Heparin Anti-Xa Level POC ABG pH 7.293 L ABG pH POC ABG pCO2 POC ABG pO2 ABG pO2 ABG HCO3 ABG O2 Saturation ABG Base Excess ABG Hemoglobin Oxyhemoglobin Sodium Potassium Chloride Carbon Dioxide BUN Creatinine Glucose POC Glucose 153 H Lactic Acid 2.10 H* Calcium Ionized Calcium Phosphorus Magnesium Iron TIBC Ferritin Total Bilirubin Direct Bilirubin AST ALT Alkaline Phosphatase Total Creatine Kinase CK-MB (CK-2) Troponin T C-Reactive Protein Total Protein Albumin Triglycerides LDL Cholesterol Direct HDL Cholesterol Free T4 PTH Intact Urine WBC (Auto) Urine Creatinine Salicylates Acetaminophen Crossmatch 03/21/19 03/22/19 03/22/19 23:38 05:08 05:51 WBC RBC Hgb Hct RDW Plt Count Lymph % (Auto) [place] % (Auto) Lymph # Seg Neutrophils % Seg Neuts % (Manual) Lymphocytes % (Manual) Monocytes % (Manual) Nucleated RBC % Seg Neutrophils # Seg Neutrophils # Man Lymphocytes # (Manual) Monocytes # (Manual) PT INR D-Dimer Heparin Anti-Xa Level POC ABG pH 7.283 L ABG pH POC ABG pCO2 POC ABG pO2 53 L ABG pO2 ABG HCO3 ABG O2 Saturation ABG Base Excess ABG Hemoglobin Oxyhemoglobin Sodium Potassium Chloride Carbon Dioxide BUN Creatinine Glucose POC Glucose 149 H 131 H Lactic Acid Calcium Ionized Calcium Phosphorus Magnesium Iron TIBC Ferritin Total Bilirubin Direct Bilirubin AST ALT Alkaline Phosphatase Total Creatine Kinase CK-MB (CK-2) Troponin T C-Reactive Protein Total Protein Albumin Triglycerides LDL Cholesterol Direct HDL Cholesterol Free T4 PTH Intact Urine WBC (Auto) Urine Creatinine Salicylates Acetaminophen Crossmatch 03/22/19 03/22/19 03/22/19 08:00 08:00 18:19 WBC 36.7 H RBC Hgb 11.0 L Hct 33.5 L RDW 15.5 H Plt Count 43 L Lymph % (Auto) [place] % (Auto) Lymph # Seg Neutrophils % Seg Neuts % (Manual) 87.0 H Lymphocytes % (Manual) 7.0 L Monocytes % (Manual) Nucleated RBC % Seg Neutrophils # Seg Neutrophils # Man 31.9 H Lymphocytes # (Manual) Monocytes # (Manual) PT INR D-Dimer Heparin Anti-Xa Level POC ABG pH ABG pH POC ABG pCO2 46.4 H POC ABG pO2 108 H ABG pO2 ABG HCO3 ABG O2 Saturation ABG Base Excess ABG Hemoglobin Oxyhemoglobin Sodium 132 L Potassium 5.6 H Chloride 89.6 L Carbon Dioxide 20 L BUN 101 H Creatinine 7.4 H Glucose 124 H POC Glucose Lactic Acid Calcium 5.2 L* Ionized Calcium Phosphorus Magnesium Iron TIBC Ferritin Total Bilirubin 2.80 H Direct Bilirubin AST 119 H ALT 86 H Alkaline Phosphatase 245 H Total Creatine Kinase CK-MB (CK-2) Troponin T C-Reactive Protein Total Protein 5.6 L Albumin 2.5 L Triglycerides LDL Cholesterol Direct HDL Cholesterol Free T4 PTH Intact Urine WBC (Auto) Urine Creatinine Salicylates Acetaminophen Crossmatch 03/22/19 03/23/19 03/23/19 20:37 04:49 05:28 WBC 35.9 H RBC Hgb 10.8 L Hct 33.2 L RDW 15.5 H Plt Count 49 L Lymph % (Auto) [place] % (Auto) Lymph # Seg Neutrophils % Seg Neuts % (Manual) 81.0 H Lymphocytes % (Manual) 3.5 L Monocytes % (Manual) Nucleated RBC % Seg Neutrophils # Seg Neutrophils # Man 29.1 H Lymphocytes # (Manual) Monocytes # (Manual) 1.4 H PT INR D-Dimer Heparin Anti-Xa Level POC ABG pH 7.296 L ABG pH POC ABG pCO2 46.2 H POC ABG pO2 ABG pO2 ABG HCO3 ABG O2 Saturation ABG Base Excess ABG Hemoglobin Oxyhemoglobin Sodium 129 L Potassium 5.2 H Chloride 91.1 L Carbon Dioxide BUN 91 H Creatinine 6.6 H Glucose 190 H POC Glucose Lactic Acid Calcium 5.3 L* Ionized Calcium Phosphorus Magnesium Iron TIBC Ferritin Total Bilirubin 1.80 H Direct Bilirubin AST 80 H ALT 62 H Alkaline Phosphatase 209 H Total Creatine Kinase 9758 H CK-MB (CK-2) Troponin T C-Reactive Protein Total Protein 5.2 L Albumin 2.2 L Triglycerides LDL Cholesterol Direct HDL Cholesterol Free T4 PTH Intact Urine WBC (Auto) Urine Creatinine Salicylates Acetaminophen Crossmatch 03/23/19 03/23/19 03/23/19 05:28 05:31 11:33 WBC 29.7 H RBC 3.59 L Hgb 10.1 L Hct 31.1 L RDW 15.4 H Plt Count 47 L Lymph % (Auto) [place] % (Auto) Lymph # Seg Neutrophils % Seg Neuts % (Manual) 89.0 H Lymphocytes % (Manual) 6.0 L Monocytes % (Manual) Nucleated RBC % 1.0 H Seg Neutrophils # Seg Neutrophils # Man 26.4 H Lymphocytes # (Manual) Monocytes # (Manual) PT INR D-Dimer Heparin Anti-Xa Level POC ABG pH ABG pH POC ABG pCO2 POC ABG pO2 ABG pO2 ABG HCO3 ABG O2 Saturation ABG Base Excess ABG Hemoglobin Oxyhemoglobin Sodium Potassium Chloride Carbon Dioxide BUN Creatinine Glucose POC Glucose 122 H 113 H Lactic Acid Calcium Ionized Calcium Phosphorus Magnesium Iron TIBC Ferritin Total Bilirubin Direct Bilirubin AST ALT Alkaline Phosphatase Total Creatine Kinase CK-MB (CK-2) Troponin T C-Reactive Protein Total Protein Albumin Triglycerides LDL Cholesterol Direct HDL Cholesterol Free T4 PTH Intact Urine WBC (Auto) Urine Creatinine Salicylates Acetaminophen Crossmatch 03/23/19 03/24/19 03/24/19 17:47 00:00 04:50 WBC 35.0 H RBC Hgb 10.4 L Hct 32.4 L RDW Plt Count 60 L Lymph % (Auto) [place] % (Auto) Lymph # Seg Neutrophils % Seg Neuts % (Manual) 93.0 H Lymphocytes % (Manual) 5.0 L Monocytes % (Manual) Nucleated RBC % 7.0 H Seg Neutrophils # Seg Neutrophils # Man 32.6 H Lymphocytes # (Manual) Monocytes # (Manual) PT INR D-Dimer Heparin Anti-Xa Level POC ABG pH ABG pH POC ABG pCO2 POC ABG pO2 ABG pO2 ABG HCO3 ABG O2 Saturation ABG Base Excess ABG Hemoglobin Oxyhemoglobin Sodium Potassium Chloride Carbon Dioxide BUN Creatinine Glucose POC Glucose 111 H 108 H Lactic Acid Calcium Ionized Calcium Phosphorus Magnesium Iron TIBC Ferritin Total Bilirubin Direct Bilirubin AST ALT Alkaline Phosphatase Total Creatine Kinase CK-MB (CK-2) Troponin T C-Reactive Protein Total Protein Albumin Triglycerides LDL Cholesterol Direct HDL Cholesterol Free T4 PTH Intact Urine WBC (Auto) Urine Creatinine Salicylates Acetaminophen Crossmatch 03/24/19 03/24/19 03/24/19 04:50 05:06 12:55 WBC RBC Hgb Hct RDW Plt Count Lymph % (Auto) [place] % (Auto) Lymph # Seg Neutrophils % Seg Neuts % (Manual) Lymphocytes % (Manual) Monocytes % (Manual) Nucleated RBC % Seg Neutrophils # Seg Neutrophils # Man Lymphocytes # (Manual) Monocytes # (Manual) PT INR D-Dimer Heparin Anti-Xa Level POC ABG pH ABG pH POC ABG pCO2 POC ABG pO2 ABG pO2 ABG HCO3 ABG O2 Saturation ABG Base Excess ABG Hemoglobin Oxyhemoglobin Sodium 134 L Potassium 5.1 H Chloride 95.3 L Carbon Dioxide 21 L BUN 85 H Creatinine 6.4 H Glucose 109 H POC Glucose 112 H 110 H Lactic Acid Calcium 5.8 L* Ionized Calcium Phosphorus Magnesium Iron TIBC Ferritin Total Bilirubin Direct Bilirubin AST ALT Alkaline Phosphatase Total Creatine Kinase 5747 H CK-MB (CK-2) Troponin T C-Reactive Protein Total Protein Albumin Triglycerides LDL Cholesterol Direct HDL Cholesterol Free T4 PTH Intact Urine WBC (Auto) Urine Creatinine Salicylates Acetaminophen Crossmatch 03/24/19 03/25/19 03/25/19 23:29 05:00 05:00 WBC RBC Hgb Hct RDW Plt Count Lymph % (Auto) [place] % (Auto) Lymph # Seg Neutrophils % Seg Neuts % (Manual) Lymphocytes % (Manual) Monocytes % (Manual) Nucleated RBC % Seg Neutrophils # Seg Neutrophils # Man Lymphocytes # (Manual) Monocytes # (Manual) PT INR D-Dimer Heparin Anti-Xa Level POC ABG pH ABG pH POC ABG pCO2 POC ABG pO2 ABG pO2 ABG HCO3 ABG O2 Saturation ABG Base Excess ABG Hemoglobin Oxyhemoglobin Sodium 133 L Potassium Chloride 94.0 L Carbon Dioxide 21 L BUN 81 H Creatinine 6.4 H Glucose POC Glucose 109 H Lactic Acid Calcium 5.5 L* Ionized Calcium Phosphorus Magnesium Iron TIBC Ferritin Total Bilirubin Direct Bilirubin AST 80 H ALT Alkaline Phosphatase 202 H Total Creatine Kinase 3589 H CK-MB (CK-2) Troponin T C-Reactive Protein Total Protein 5.3 L Albumin 2.4 L Triglycerides LDL Cholesterol Direct HDL Cholesterol Free T4 PTH Intact 329.9 H Urine WBC (Auto) Urine Creatinine Salicylates Acetaminophen Crossmatch 03/25/19 03/25/19 03/26/19 05:00 06:30 04:30 WBC 23.3 H RBC 3.61 L Hgb 10.2 L Hct 31.2 L RDW Plt Count 57 L Lymph % (Auto) [place] % (Auto) Lymph # Seg Neutrophils % Seg Neuts % (Manual) 92.0 H Lymphocytes % (Manual) 6.0 L Monocytes % (Manual) Nucleated RBC % Seg Neutrophils # Seg Neutrophils # Man 21.4 H Lymphocytes # (Manual) Monocytes # (Manual) PT INR D-Dimer Heparin Anti-Xa Level POC ABG pH ABG pH 7.326 L POC ABG pCO2 POC ABG pO2 ABG pO2 109.5 H 137.4 H ABG HCO3 18.8 L 18.6 L ABG O2 Saturation ABG Base Excess -4.4 L -6.8 L ABG Hemoglobin 10.1 L 9.9 L Oxyhemoglobin Sodium Potassium Chloride Carbon Dioxide BUN Creatinine Glucose POC Glucose Lactic Acid Calcium Ionized Calcium Phosphorus Magnesium Iron TIBC Ferritin Total Bilirubin Direct Bilirubin AST ALT Alkaline Phosphatase Total Creatine Kinase CK-MB (CK-2) Troponin T C-Reactive Protein Total Protein Albumin Triglycerides LDL Cholesterol Direct HDL Cholesterol Free T4 PTH Intact Urine WBC (Auto) Urine Creatinine Salicylates Acetaminophen Crossmatch 03/26/19 03/26/19 03/26/19 23:22 Unknown Unknown WBC 19.5 H RBC 3.44 L Hgb 9.8 L Hct 29.9 L RDW Plt Count 85 L Lymph % (Auto) [place] % (Auto) Lymph # Seg Neutrophils % Seg Neuts % (Manual) 95.0 H Lymphocytes % (Manual) 3.0 L Monocytes % (Manual) Nucleated RBC % Seg Neutrophils # Seg Neutrophils # Man 18.5 H Lymphocytes # (Manual) 0.6 L Monocytes # (Manual) PT INR D-Dimer Heparin Anti-Xa Level POC ABG pH ABG pH POC ABG pCO2 POC ABG pO2 ABG pO2 ABG HCO3 ABG O2 Saturation ABG Base Excess ABG Hemoglobin Oxyhemoglobin Sodium 135 L Potassium 5.2 H D Chloride 92.2 L Carbon Dioxide 18 L BUN 109 H Creatinine 8.5 H Glucose 117 H POC Glucose 69 L Lactic Acid Calcium 4.5 L* D Ionized Calcium Phosphorus Magnesium Iron TIBC Ferritin Total Bilirubin Direct Bilirubin AST ALT Alkaline Phosphatase Total Creatine Kinase 4527 H CK-MB (CK-2) Troponin T C-Reactive Protein Total Protein Albumin Triglycerides LDL Cholesterol Direct HDL Cholesterol Free T4 PTH Intact Urine WBC (Auto) Urine Creatinine Salicylates Acetaminophen Crossmatch 03/27/19 03/27/19 03/27/19 04:30 04:30 09:00 WBC 19.2 H RBC 3.42 L Hgb 9.9 L Hct 30.0 L RDW Plt Count 84 L Lymph % (Auto) [place] % (Auto) Lymph # Seg Neutrophils % Seg Neuts % (Manual) Lymphocytes % (Manual) Monocytes % (Manual) Nucleated RBC % Seg Neutrophils # Seg Neutrophils # Man Lymphocytes # (Manual) Monocytes # (Manual) PT INR D-Dimer Heparin Anti-Xa Level POC ABG pH ABG pH POC ABG pCO2 POC ABG pO2 ABG pO2 ABG HCO3 ABG O2 Saturation ABG Base Excess ABG Hemoglobin Oxyhemoglobin Sodium 135 L Potassium Chloride 93.5 L Carbon Dioxide BUN 84 H Creatinine 7.1 H Glucose POC Glucose Lactic Acid Calcium 5.0 L* Ionized Calcium Phosphorus Magnesium Iron TIBC Ferritin Total Bilirubin Direct Bilirubin AST 78 H ALT Alkaline Phosphatase 135 H Total Creatine Kinase 4677 H CK-MB (CK-2) Troponin T C-Reactive Protein Total Protein 4.8 L Albumin 2.3 L Triglycerides 409 H LDL Cholesterol Direct HDL Cholesterol Free T4 PTH Intact Urine WBC (Auto) Urine Creatinine Salicylates Acetaminophen Crossmatch 03/27/19 03/27/19 03/27/19 12:37 14:15 14:15 WBC RBC Hgb 9.7 L Hct 29.5 L RDW Plt Count 87 L Lymph % (Auto) [place] % (Auto) Lymph # Seg Neutrophils % Seg Neuts % (Manual) Lymphocytes % (Manual) Monocytes % (Manual) Nucleated RBC % Seg Neutrophils # Seg Neutrophils # Man Lymphocytes # (Manual) Monocytes # (Manual) PT 15.9 H INR 1.30 H D-Dimer Heparin Anti-Xa Level POC ABG pH ABG pH POC ABG pCO2 POC ABG pO2 ABG pO2 ABG HCO3 ABG O2 Saturation ABG Base Excess ABG Hemoglobin Oxyhemoglobin Sodium Potassium Chloride Carbon Dioxide BUN Creatinine Glucose POC Glucose 129 H Lactic Acid Calcium Ionized Calcium Phosphorus Magnesium Iron TIBC Ferritin Total Bilirubin Direct Bilirubin AST ALT Alkaline Phosphatase Total Creatine Kinase CK-MB (CK-2) Troponin T C-Reactive Protein Total Protein Albumin Triglycerides LDL Cholesterol Direct HDL Cholesterol Free T4 PTH Intact Urine WBC (Auto) Urine Creatinine Salicylates Acetaminophen Crossmatch 03/27/19 03/27/19 03/27/19 18:00 19:22 19:23 WBC RBC Hgb Hct RDW Plt Count Lymph % (Auto) [place] % (Auto) Lymph # Seg Neutrophils % Seg Neuts % (Manual) Lymphocytes % (Manual) Monocytes % (Manual) Nucleated RBC % Seg Neutrophils # Seg Neutrophils # Man Lymphocytes # (Manual) Monocytes # (Manual) PT INR D-Dimer Heparin Anti-Xa Level < 0.10 L POC ABG pH ABG pH POC ABG pCO2 POC ABG pO2 ABG pO2 ABG HCO3 ABG O2 Saturation ABG Base Excess ABG Hemoglobin Oxyhemoglobin Sodium Potassium Chloride Carbon Dioxide BUN Creatinine Glucose POC Glucose 121 H Lactic Acid Calcium Ionized Calcium Phosphorus Magnesium Iron TIBC Ferritin Total Bilirubin Direct Bilirubin AST ALT Alkaline Phosphatase Total Creatine Kinase 4517 H CK-MB (CK-2) Troponin T C-Reactive Protein Total Protein Albumin Triglycerides LDL Cholesterol Direct HDL Cholesterol Free T4 PTH Intact Urine WBC (Auto) Urine Creatinine Salicylates Acetaminophen Crossmatch 03/27/19 03/27/1903/28/19 22:10 23:52 03:49 WBC RBC Hgb Hct RDW Plt Count Lymph % (Auto) [place] % (Auto) Lymph # Seg Neutrophils % Seg Neuts % (Manual) Lymphocytes % (Manual) Monocytes % (Manual) Nucleated RBC % Seg Neutrophils # Seg Neutrophils # Man Lymphocytes # (Manual) Monocytes # (Manual) PT INR D-Dimer Heparin Anti-Xa Level POC ABG pH 7.338 L ABG pH POC ABG pCO2 33.1 L POC ABG pO2 ABG pO2 ABG HCO3 ABG O2 Saturation ABG Base Excess ABG Hemoglobin Oxyhemoglobin Sodium Potassium Chloride Carbon Dioxide BUN Creatinine Glucose POC Glucose 113 H 117 H Lactic Acid Calcium Ionized Calcium Phosphorus Magnesium Iron TIBC Ferritin Total Bilirubin Direct Bilirubin AST ALT Alkaline Phosphatase Total Creatine Kinase CK-MB (CK-2) Troponin T C-Reactive Protein Total Protein Albumin Triglycerides LDL Cholesterol Direct HDL Cholesterol Free T4 PTH Intact Urine WBC (Auto) Urine Creatinine Salicylates Acetaminophen Crossmatch 03/28/19 03/28/19 03/28/19 05:13 05:13 06:18 WBC RBC Hgb Hct RDW Plt Count Lymph % (Auto) [place] % (Auto) Lymph # Seg Neutrophils % Seg Neuts % (Manual) Lymphocytes % (Manual) Monocytes % (Manual) Nucleated RBC % Seg Neutrophils # Seg Neutrophils # Man Lymphocytes # (Manual) Monocytes # (Manual) PT INR D-Dimer Heparin Anti-Xa Level 0.23 L POC ABG pH ABG pH POC ABG pCO2 POC ABG pO2 ABG pO2 ABG HCO3 ABG O2 Saturation ABG Base Excess ABG Hemoglobin Oxyhemoglobin Sodium 135 L Potassium 5.5 H D Chloride 95.1 L Carbon Dioxide 16 L D BUN 129 H Creatinine 9.3 H Glucose 158 H POC Glucose 202 H Lactic Acid Calcium 4.0 L* D Ionized Calcium Phosphorus 12.40 H Magnesium Iron TIBC Ferritin Total Bilirubin Direct Bilirubin AST ALT Alkaline Phosphatase Total Creatine Kinase 4266 H CK-MB (CK-2) Troponin T C-Reactive Protein Total Protein Albumin Triglycerides LDL Cholesterol Direct HDL Cholesterol Free T4 PTH Intact Urine WBC (Auto) Urine Creatinine Salicylates Acetaminophen Crossmatch 03/28/19 03/28/19 03/28/19 08:25 10:00 12:00 WBC RBC Hgb 4.9 L* D Hct 15.4 L* D RDW Plt Count Lymph % (Auto) [place] % (Auto) Lymph # Seg Neutrophils % Seg Neuts % (Manual) Lymphocytes % (Manual) Monocytes % (Manual) Nucleated RBC % Seg Neutrophils # Seg Neutrophils # Man Lymphocytes # (Manual) Monocytes # (Manual) PT 17.9 H INR 1.52 H D-Dimer 4845.98 H Heparin Anti-Xa Level POC ABG pH ABG pH POC ABG pCO2 POC ABG pO2 ABG pO2 ABG HCO3 ABG O2 Saturation ABG Base Excess ABG Hemoglobin Oxyhemoglobin Sodium Potassium Chloride Carbon Dioxide BUN Creatinine Glucose POC Glucose Lactic Acid Calcium Ionized Calcium Phosphorus Magnesium Iron TIBC Ferritin Total Bilirubin Direct Bilirubin AST ALT Alkaline Phosphatase Total Creatine Kinase CK-MB (CK-2) Troponin T C-Reactive Protein Total Protein Albumin Triglycerides LDL Cholesterol Direct HDL Cholesterol Free T4 PTH Intact Urine WBC (Auto) Urine Creatinine Salicylates Acetaminophen Crossmatch See Detail 03/28/19 03/28/19 03/28/19 12:28 14:10 17:43 WBC RBC Hgb 5.9 L* Hct 18.3 L* RDW Plt Count Lymph % (Auto) [place] % (Auto) Lymph # Seg Neutrophils % Seg Neuts % (Manual) Lymphocytes % (Manual) Monocytes % (Manual) Nucleated RBC % Seg Neutrophils # Seg Neutrophils # Man Lymphocytes # (Manual) Monocytes # (Manual) PT INR D-Dimer Heparin Anti-Xa Level POC ABG pH ABG pH POC ABG pCO2 POC ABG pO2 ABG pO2 ABG HCO3 ABG O2 Saturation ABG Base Excess ABG Hemoglobin Oxyhemoglobin Sodium Potassium Chloride Carbon Dioxide BUN Creatinine Glucose POC Glucose 153 H 159 H Lactic Acid Calcium Ionized Calcium Phosphorus Magnesium Iron TIBC Ferritin Total Bilirubin Direct Bilirubin AST ALT Alkaline Phosphatase Total Creatine Kinase CK-MB (CK-2) Troponin T C-Reactive Protein Total Protein Albumin Triglycerides LDL Cholesterol Direct HDL Cholesterol Free T4 PTH Intact Urine WBC (Auto) Urine Creatinine Salicylates Acetaminophen Crossmatch 03/28/19 03/28/19 03/28/19 18:10 Unknown 23:59 WBC 24.8 H RBC 3.42 L Hgb 10.2 L D Hct 31.1 L D RDW 15.4 H Plt Count 54 L Lymph % (Auto) [place] % (Auto) Lymph # Seg Neutrophils % Seg Neuts % (Manual) 91.0 H Lymphocytes % (Manual) 8.0 L Monocytes % (Manual) Nucleated RBC % Seg Neutrophils # Seg Neutrophils # Man 22.6 H Lymphocytes # (Manual) Monocytes # (Manual) PT INR D-Dimer Heparin Anti-Xa Level POC ABG pH ABG pH POC ABG pCO2 POC ABG pO2 ABG pO2 ABG HCO3 ABG O2 Saturation ABG Base Excess ABG Hemoglobin Oxyhemoglobin Sodium Potassium 5.7 H Chloride Carbon Dioxide BUN Creatinine Glucose POC Glucose 107 H Lactic Acid Calcium Ionized Calcium Phosphorus Magnesium Iron TIBC Ferritin Total Bilirubin Direct Bilirubin AST ALT Alkaline Phosphatase Total Creatine Kinase CK-MB (CK-2) Troponin T C-Reactive Protein Total Protein Albumin Triglycerides LDL Cholesterol Direct HDL Cholesterol Free T4 PTH Intact Urine WBC (Auto) Urine Creatinine Salicylates Acetaminophen Crossmatch 03/29/19 03/29/19 03/29/19 04:29 05:46 06:22 WBC RBC Hgb 8.6 L Hct 25.7 L RDW Plt Count 93 L Lymph % (Auto) [place] % (Auto) Lymph # Seg Neutrophils % Seg Neuts % (Manual) Lymphocytes % (Manual) Monocytes % (Manual) Nucleated RBC % Seg Neutrophils # Seg Neutrophils # Man Lymphocytes # (Manual) Monocytes # (Manual) PT INR D-Dimer Heparin Anti-Xa Level POC ABG pH ABG pH POC ABG pCO2 32.2 L POC ABG pO2 ABG pO2 ABG HCO3 ABG O2 Saturation ABG Base Excess ABG Hemoglobin Oxyhemoglobin Sodium Potassium Chloride Carbon Dioxide BUN Creatinine Glucose POC Glucose 113 H Lactic Acid Calcium Ionized Calcium Phosphorus Magnesium Iron TIBC Ferritin Total Bilirubin Direct Bilirubin AST ALT Alkaline Phosphatase Total Creatine Kinase CK-MB (CK-2) Troponin T C-Reactive Protein Total Protein Albumin Triglycerides LDL Cholesterol Direct HDL Cholesterol Free T4 PTH Intact Urine WBC (Auto) Urine Creatinine Salicylates Acetaminophen Crossmatch 03/29/19 03/29/19 03/29/19 06:22 06:22 06:22 WBC 23.2 H RBC 2.91 L Hgb 8.6 L Hct 25.8 L RDW Plt Count 91 L Lymph % (Auto) [place] % (Auto) Lymph # Seg Neutrophils % Seg Neuts % (Manual) Lymphocytes % (Manual) Monocytes % (Manual) Nucleated RBC % Seg Neutrophils # Seg Neutrophils # Man Lymphocytes # (Manual) Monocytes # (Manual) PT INR D-Dimer Heparin Anti-Xa Level POC ABG pH ABG pH POC ABG pCO2 POC ABG pO2 ABG pO2 ABG HCO3 ABG O2 Saturation ABG Base Excess ABG Hemoglobin Oxyhemoglobin Sodium 133 L Potassium Chloride 93.8 L Carbon Dioxide 18 L BUN 109 H Creatinine 7.4 H Glucose 124 H POC Glucose Lactic Acid Calcium 4.6 L* Ionized Calcium Phosphorus Magnesium Iron TIBC Ferritin Total Bilirubin Direct Bilirubin AST ALT Alkaline Phosphatase Total Creatine Kinase 3401 H CK-MB (CK-2) Troponin T C-Reactive Protein Total Protein Albumin Triglycerides 309 H LDL Cholesterol Direct HDL Cholesterol Free T4 PTH Intact Urine WBC (Auto) Urine Creatinine Salicylates Acetaminophen Crossmatch 03/29/19 03/29/19 03/29/19 11:48 11:48 18:24 WBC RBC Hgb 7.8 L Hct 23.2 L RDW Plt Count Lymph % (Auto) [place] % (Auto) Lymph # Seg Neutrophils % Seg Neuts % (Manual) Lymphocytes % (Manual) Monocytes % (Manual) Nucleated RBC % Seg Neutrophils # Seg Neutrophils # Man Lymphocytes # (Manual) Monocytes # (Manual) PT 15.3 H INR 1.24 H D-Dimer Heparin Anti-Xa Level POC ABG pH ABG pH POC ABG pCO2 POC ABG pO2 ABG pO2 ABG HCO3 ABG O2 Saturation ABG Base Excess ABG Hemoglobin Oxyhemoglobin Sodium Potassium Chloride Carbon Dioxide BUN Creatinine Glucose POC Glucose 122 H Lactic Acid Calcium Ionized Calcium Phosphorus Magnesium Iron TIBC Ferritin Total Bilirubin Direct Bilirubin AST ALT Alkaline Phosphatase Total Creatine Kinase CK-MB (CK-2) Troponin T C-Reactive Protein Total Protein Albumin Triglycerides LDL Cholesterol Direct HDL Cholesterol Free T4 PTH Intact Urine WBC (Auto) Urine Creatinine Salicylates Acetaminophen Crossmatch 03/30/19 03/30/19 03/30/19 00:40 04:31 05:04 WBC RBC Hgb 7.6 L Hct 23.0 L RDW Plt Count Lymph % (Auto) [place] % (Auto) Lymph # Seg Neutrophils % Seg Neuts % (Manual) Lymphocytes % (Manual) Monocytes % (Manual) Nucleated RBC % Seg Neutrophils # Seg Neutrophils # Man Lymphocytes # (Manual) Monocytes # (Manual) PT INR D-Dimer Heparin Anti-Xa Level POC ABG pH 7.346 L ABG pH POC ABG pCO2 POC ABG pO2 62 L ABG pO2 ABG HCO3 ABG O2 Saturation ABG Base Excess ABG Hemoglobin Oxyhemoglobin Sodium Potassium Chloride Carbon Dioxide BUN 79 H Creatinine 6.4 H Glucose POC Glucose Lactic Acid Calcium 6.1 L D Ionized Calcium Phosphorus Magnesium Iron TIBC Ferritin Total Bilirubin Direct Bilirubin AST ALT Alkaline Phosphatase Total Creatine Kinase CK-MB (CK-2) Troponin T C-Reactive Protein Total Protein Albumin Triglycerides LDL Cholesterol Direct HDL Cholesterol Free T4 PTH Intact Urine WBC (Auto) Urine Creatinine Salicylates Acetaminophen Crossmatch 03/30/19 03/30/19 03/30/19 08:45 12:09 22:43 WBC 14.3 H RBC 2.33 L Hgb 7.0 L 7.4 L Hct 21.0 L 22.3 L RDW 15.6 H Plt Count 135 L Lymph % (Auto) [place] % (Auto) Lymph # Seg Neutrophils % Seg Neuts % (Manual) Lymphocytes % (Manual) Monocytes % (Manual) Nucleated RBC % Seg Neutrophils # Seg Neutrophils # Man Lymphocytes # (Manual) Monocytes # (Manual) PT INR D-Dimer Heparin Anti-Xa Level POC ABG pH ABG pH POC ABG pCO2 POC ABG pO2 ABG pO2 ABG HCO3 ABG O2 Saturation ABG Base Excess ABG Hemoglobin Oxyhemoglobin Sodium Potassium Chloride Carbon Dioxide BUN Creatinine Glucose POC Glucose Lactic Acid Calcium Ionized Calcium 3.7 L Phosphorus Magnesium Iron TIBC Ferritin Total Bilirubin Direct Bilirubin AST ALT Alkaline Phosphatase Total Creatine Kinase CK-MB (CK-2) Troponin T C-Reactive Protein Total Protein Albumin Triglycerides LDL Cholesterol Direct HDL Cholesterol Free T4 PTH Intact Urine WBC (Auto) Urine Creatinine Salicylates Acetaminophen Crossmatch 03/30/19 03/30/19 03/31/19 23:38 Unknown 04:44 WBC 11.5 H RBC 2.40 L Hgb 7.3 L Hct 21.9 L RDW 15.4 H Plt Count Lymph % (Auto) 10.6 L [place] % (Auto) Lymph # Seg Neutrophils % 81.7 H Seg Neuts % (Manual) Lymphocytes % (Manual) Monocytes % (Manual) Nucleated RBC % Seg Neutrophils # 9.4 H Seg Neutrophils # Man Lymphocytes # (Manual) Monocytes # (Manual) PT INR D-Dimer Heparin Anti-Xa Level POC ABG pH ABG pH POC ABG pCO2 POC ABG pO2 ABG pO2 ABG HCO3 ABG O2 Saturation ABG Base Excess ABG Hemoglobin Oxyhemoglobin Sodium Potassium Chloride Carbon Dioxide BUN Creatinine Glucose POC Glucose 155 H Lactic Acid Calcium Ionized Calcium Phosphorus Magnesium Iron TIBC Ferritin Total Bilirubin Direct Bilirubin 0.4 H AST 63 H ALT Alkaline Phosphatase Total Creatine Kinase CK-MB (CK-2) Troponin T C-Reactive Protein Total Protein 4.9 L Albumin 2.2 L Triglycerides LDL Cholesterol Direct HDL Cholesterol Free T4 PTH Intact Urine WBC (Auto) Urine Creatinine Salicylates Acetaminophen Crossmatch 03/31/19 03/31/19 03/31/19 04:44 05:44 08:20 WBC RBC Hgb Hct RDW Plt Count Lymph % (Auto) [place] % (Auto) Lymph # Seg Neutrophils % Seg Neuts % (Manual) Lymphocytes % (Manual) Monocytes % (Manual) Nucleated RBC % Seg Neutrophils # Seg Neutrophils # Man Lymphocytes # (Manual) Monocytes # (Manual) PT INR D-Dimer Heparin Anti-Xa Level POC ABG pH ABG pH POC ABG pCO2 53.5 H POC ABG pO2 62 L ABG pO2 ABG HCO3 ABG O2 Saturation ABG Base Excess ABG Hemoglobin Oxyhemoglobin Sodium 135 L Potassium Chloride 96.7 L Carbon Dioxide 19 L BUN 94 H Creatinine 7.8 H Glucose POC Glucose Lactic Acid Calcium 5.3 L* Ionized Calcium Phosphorus 8.20 H Magnesium Iron TIBC Ferritin Total Bilirubin Direct Bilirubin 0.4 H AST 60 H ALT Alkaline Phosphatase Total Creatine Kinase CK-MB (CK-2) Troponin T C-Reactive Protein Total Protein 4.8 L Albumin 2.1 L Triglycerides LDL Cholesterol Direct HDL Cholesterol Free T4 PTH Intact Urine WBC (Auto) Urine Creatinine Salicylates Acetaminophen Crossmatch 03/31/19 04/01/19 04/01/19 22:14 04:27 04:27 WBC RBC 2.60 L Hgb 8.0 L Hct 24.1 L RDW 15.7 H Plt Count Lymph % (Auto) 7.9 L [place] % (Auto) Lymph # 0.7 L Seg Neutrophils % 83.6 H Seg Neuts % (Manual) Lymphocytes % (Manual) Monocytes % (Manual) Nucleated RBC % Seg Neutrophils # Seg Neutrophils # Man Lymphocytes # (Manual) Monocytes # (Manual) PT INR D-Dimer Heparin Anti-Xa Level POC ABG pH 7.286 L ABG pH POC ABG pCO2 54.7 H POC ABG pO2 179 H ABG pO2 ABG HCO3 ABG O2 Saturation ABG Base Excess ABG Hemoglobin Oxyhemoglobin Sodium Potassium Chloride Carbon Dioxide BUN 68 H Creatinine 6.6 H Glucose POC Glucose Lactic Acid Calcium 6.5 L D Ionized Calcium Phosphorus 7.30 H Magnesium Iron TIBC Ferritin Total Bilirubin Direct Bilirubin AST ALT Alkaline Phosphatase Total Creatine Kinase 1652 H CK-MB (CK-2) Troponin T C-Reactive Protein Total Protein Albumin Triglycerides LDL Cholesterol Direct HDL Cholesterol Free T4 PTH Intact Urine WBC (Auto) Urine Creatinine Salicylates Acetaminophen Crossmatch 04/01/19 04/01/19 04/01/19 05:14 05:37 18:37 WBC RBC Hgb Hct RDW Plt Count Lymph % (Auto) [place] % (Auto) Lymph # Seg Neutrophils % Seg Neuts % (Manual) Lymphocytes % (Manual) Monocytes % (Manual) Nucleated RBC % Seg Neutrophils # Seg Neutrophils # Man Lymphocytes # (Manual) Monocytes # (Manual) PT INR D-Dimer Heparin Anti-Xa Level POC ABG pH 7.283 L ABG pH POC ABG pCO2 53.4 H POC ABG pO2 241 H ABG pO2 ABG HCO3 ABG O2 Saturation ABG Base Excess ABG Hemoglobin Oxyhemoglobin Sodium Potassium Chloride Carbon Dioxide BUN Creatinine Glucose POC Glucose 111 H 119 H Lactic Acid Calcium Ionized Calcium Phosphorus Magnesium Iron TIBC Ferritin Total Bilirubin Direct Bilirubin AST ALT Alkaline Phosphatase Total Creatine Kinase CK-MB (CK-2) Troponin T C-Reactive Protein Total Protein Albumin Triglycerides LDL Cholesterol Direct HDL Cholesterol Free T4 PTH Intact Urine WBC (Auto) Urine Creatinine Salicylates Acetaminophen Crossmatch 04/01/19 04/02/19 04/02/19 21:28 04:40 05:03 WBC RBC 2.36 L Hgb 7.2 L Hct 21.9 L RDW 16.0 H Plt Count Lymph % (Auto) 10.8 L [place] % (Auto) Lymph # 0.8 L Seg Neutrophils % 80.3 H Seg Neuts % (Manual) Lymphocytes % (Manual) Monocytes % (Manual) Nucleated RBC % Seg Neutrophils # Seg Neutrophils # Man Lymphocytes # (Manual) Monocytes # (Manual) PT INR D-Dimer Heparin Anti-Xa Level POC ABG pH 7.299 L 7.300 L ABG pH POC ABG pCO2 48.2 H 45.2 H POC ABG pO2 133 H 107 H ABG pO2 ABG HCO3 ABG O2 Saturation ABG Base Excess ABG Hemoglobin Oxyhemoglobin Sodium Potassium Chloride Carbon Dioxide BUN Creatinine Glucose POC Glucose Lactic Acid Calcium Ionized Calcium Phosphorus Magnesium Iron TIBC Ferritin Total Bilirubin Direct Bilirubin AST ALT Alkaline Phosphatase Total Creatine Kinase CK-MB (CK-2) Troponin T C-Reactive Protein Total Protein Albumin Triglycerides LDL Cholesterol Direct HDL Cholesterol Free T4 PTH Intact Urine WBC (Auto) Urine Creatinine Salicylates Acetaminophen Crossmatch 04/02/19 04/02/19 04/02/19 05:03 05:03 12:15 WBC RBC Hgb 7.4 L Hct 22.6 L RDW Plt Count Lymph % (Auto) [place] % (Auto) Lymph # Seg Neutrophils % Seg Neuts % (Manual) Lymphocytes % (Manual) Monocytes % (Manual) Nucleated RBC % Seg Neutrophils # Seg Neutrophils # Man Lymphocytes # (Manual) Monocytes # (Manual) PT INR D-Dimer Heparin Anti-Xa Level POC ABG pH ABG pH POC ABG pCO2 POC ABG pO2 ABG pO2 ABG HCO3 ABG O2 Saturation ABG Base Excess ABG Hemoglobin Oxyhemoglobin Sodium 136 L Potassium Chloride 97.8 L Carbon Dioxide 18 L BUN 82 H Creatinine 8.2 H Glucose POC Glucose Lactic Acid Calcium 6.7 L Ionized Calcium Phosphorus 7.50 H Magnesium Iron 26 L TIBC 138 L Ferritin 607.0 H Total Bilirubin Direct Bilirubin AST ALT Alkaline Phosphatase Total Creatine Kinase CK-MB (CK-2) Troponin T C-Reactive Protein Total Protein Albumin Triglycerides LDL Cholesterol Direct HDL Cholesterol Free T4 PTH Intact Urine WBC (Auto) Urine Creatinine Salicylates Acetaminophen Crossmatch 04/02/19 04/02/19 04/03/19 16:34 17:14 04:18 WBC RBC Hgb Hct RDW Plt Count Lymph % (Auto) [place] % (Auto) Lymph # Seg Neutrophils % Seg Neuts % (Manual) Lymphocytes % (Manual) Monocytes % (Manual) Nucleated RBC % Seg Neutrophils # Seg Neutrophils # Man Lymphocytes # (Manual) Monocytes # (Manual) PT INR D-Dimer Heparin Anti-Xa Level POC ABG pH ABG pH POC ABG pCO2 POC ABG pO2 146 H ABG pO2 ABG HCO3 ABG O2 Saturation ABG Base Excess ABG Hemoglobin Oxyhemoglobin Sodium Potassium Chloride Carbon Dioxide BUN Creatinine Glucose POC Glucose 108 H Lactic Acid Calcium Ionized Calcium Phosphorus Magnesium Iron TIBC Ferritin Total Bilirubin Direct Bilirubin AST ALT Alkaline Phosphatase Total Creatine Kinase CK-MB (CK-2) Troponin T C-Reactive Protein Total Protein Albumin Triglycerides LDL Cholesterol Direct HDL Cholesterol Free T4 PTH Intact Urine WBC (Auto) Urine Creatinine Salicylates Acetaminophen Crossmatch See Detail 04/03/19 04/03/19 04/03/19 04:25 08:30 18:24 WBC RBC 2.40 L Hgb 7.3 L Hct 21.9 L RDW Plt Count Lymph % (Auto) [place] % (Auto) 7.7 H Lymph # 0.9 L Seg Neutrophils % 74.6 H Seg Neuts % (Manual) Lymphocytes % (Manual) Monocytes % (Manual) Nucleated RBC % Seg Neutrophils # Seg Neutrophils # Man Lymphocytes # (Manual) Monocytes # (Manual) PT INR D-Dimer Heparin Anti-Xa Level POC ABG pH ABG pH POC ABG pCO2 POC ABG pO2 ABG pO2 ABG HCO3 ABG O2 Saturation ABG Base Excess ABG Hemoglobin Oxyhemoglobin Sodium 136 L Potassium Chloride 97.0 L Carbon Dioxide BUN 58 H Creatinine 7.3 H Glucose POC Glucose 106 H Lactic Acid Calcium 7.5 L Ionized Calcium Phosphorus 5.80 H D Magnesium Iron TIBC Ferritin Total Bilirubin Direct Bilirubin AST ALT Alkaline Phosphatase Total Creatine Kinase CK-MB (CK-2) Troponin T C-Reactive Protein Total Protein Albumin Triglycerides LDL Cholesterol Direct HDL Cholesterol Free T4 PTH Intact Urine WBC (Auto) Urine Creatinine Salicylates Acetaminophen Crossmatch 04/03/19 04/04/19 04/04/19 23:43 04:47 04:47 WBC RBC 2.72 L Hgb 8.3 L Hct 24.7 L RDW 15.6 H Plt Count Lymph % (Auto) [place] % (Auto) 10.1 H Lymph # 0.8 L Seg Neutrophils % 71.4 H Seg Neuts % (Manual) Lymphocytes % (Manual) Monocytes % (Manual) Nucleated RBC % Seg Neutrophils # Seg Neutrophils # Man Lymphocytes # (Manual) Monocytes # (Manual) PT INR D-Dimer Heparin Anti-Xa Level POC ABG pH ABG pH POC ABG pCO2 POC ABG pO2 ABG pO2 123.8 H ABG HCO3 ABG O2 Saturation ABG Base Excess -3.0 L ABG Hemoglobin 7.9 L Oxyhemoglobin Sodium 134 L Potassium Chloride 97.9 L Carbon Dioxide BUN 64 H Creatinine 8.1 H Glucose POC Glucose Lactic Acid Calcium 7.2 L Ionized Calcium Phosphorus Magnesium Iron TIBC Ferritin Total Bilirubin Direct Bilirubin AST ALT Alkaline Phosphatase Total Creatine Kinase CK-MB (CK-2) Troponin T C-Reactive Protein Total Protein Albumin Triglycerides LDL Cholesterol Direct HDL Cholesterol Free T4 PTH Intact Urine WBC (Auto) Urine Creatinine Salicylates Acetaminophen Crossmatch 04/04/19 04/04/19 04/04/19 06:07 13:40 18:18 WBC RBC Hgb Hct RDW Plt Count Lymph % (Auto) [place] % (Auto) Lymph # Seg Neutrophils % Seg Neuts % (Manual) Lymphocytes % (Manual) Monocytes % (Manual) Nucleated RBC % Seg Neutrophils # Seg Neutrophils # Man Lymphocytes # (Manual) Monocytes # (Manual) PT INR D-Dimer Heparin Anti-Xa Level POC ABG pH ABG pH POC ABG pCO2 POC ABG pO2 ABG pO2 95.9 H ABG HCO3 ABG O2 Saturation ABG Base Excess -3.0 L ABG Hemoglobin 8.5 L Oxyhemoglobin Sodium Potassium Chloride Carbon Dioxide BUN Creatinine Glucose POC Glucose 107 H 107 H Lactic Acid Calcium Ionized Calcium Phosphorus Magnesium Iron TIBC Ferritin Total Bilirubin Direct Bilirubin AST ALT Alkaline Phosphatase Total Creatine Kinase CK-MB (CK-2) Troponin T C-Reactive Protein Total Protein Albumin Triglycerides LDL Cholesterol Direct HDL Cholesterol Free T4 PTH Intact Urine WBC (Auto) Urine Creatinine Salicylates Acetaminophen Crossmatch 04/04/19 04/05/19 04/05/19 21:22 04:09 04:09 WBC RBC 2.76 L Hgb 8.4 L Hct 25.4 L RDW 15.8 H Plt Count 133 L Lymph % (Auto) [place] % (Auto) 9.6 H Lymph # 0.7 L Seg Neutrophils % 72.6 H Seg Neuts % (Manual) Lymphocytes % (Manual) Monocytes % (Manual) Nucleated RBC % Seg Neutrophils # Seg Neutrophils # Man Lymphocytes # (Manual) Monocytes # (Manual) PT INR D-Dimer Heparin Anti-Xa Level POC ABG pH ABG pH POC ABG pCO2 47.2 H POC ABG pO2 137 H ABG pO2 ABG HCO3 ABG O2 Saturation ABG Base Excess ABG Hemoglobin Oxyhemoglobin Sodium 136 L Potassium Chloride Carbon Dioxide BUN 46 H Creatinine 6.7 H Glucose POC Glucose Lactic Acid Calcium 7.7 L Ionized Calcium Phosphorus Magnesium Iron TIBC Ferritin Total Bilirubin Direct Bilirubin AST ALT Alkaline Phosphatase Total Creatine Kinase CK-MB (CK-2) Troponin T C-Reactive Protein Total Protein Albumin Triglycerides LDL Cholesterol Direct HDL Cholesterol Free T4 PTH Intact Urine WBC (Auto) Urine Creatinine Salicylates Acetaminophen Crossmatch 04/05/19 04/05/19 04/05/19 05:28 06:14 16:50 WBC RBC Hgb Hct RDW Plt Count Lymph % (Auto) [place] % (Auto) Lymph # Seg Neutrophils % Seg Neuts % (Manual) Lymphocytes % (Manual) Monocytes % (Manual) Nucleated RBC % Seg Neutrophils # Seg Neutrophils # Man Lymphocytes # (Manual) Monocytes # (Manual) PT INR D-Dimer Heparin Anti-Xa Level POC ABG pH ABG pH POC ABG pCO2 POC ABG pO2 67 L ABG pO2 ABG HCO3 ABG O2 Saturation ABG Base Excess ABG Hemoglobin Oxyhemoglobin Sodium Potassium Chloride Carbon Dioxide BUN Creatinine Glucose POC Glucose 108 H Lactic Acid Calcium Ionized Calcium Phosphorus Magnesium Iron TIBC Ferritin Total Bilirubin Direct Bilirubin AST ALT Alkaline Phosphatase Total Creatine Kinase CK-MB (CK-2) Troponin T C-Reactive Protein Total Protein Albumin Triglycerides LDL Cholesterol Direct HDL Cholesterol Free T4 PTH Intact Urine WBC (Auto) 40.0 H Urine Creatinine Salicylates Acetaminophen Crossmatch 04/05/19 04/06/19 04/06/19 17:22 00:13 04:44 WBC RBC 2.48 L Hgb 7.5 L Hct 22.9 L RDW 16.0 H Plt Count 107 L Lymph % (Auto) [place] % (Auto) 10.7 H Lymph # 1.0 L Seg Neutrophils % Seg Neuts % (Manual) Lymphocytes % (Manual) Monocytes % (Manual) Nucleated RBC % Seg Neutrophils # Seg Neutrophils # Man Lymphocytes # (Manual) Monocytes # (Manual) PT INR D-Dimer Heparin Anti-Xa Level POC ABG pH ABG pH POC ABG pCO2 POC ABG pO2 ABG pO2 ABG HCO3 ABG O2 Saturation ABG Base Excess ABG Hemoglobin Oxyhemoglobin Sodium Potassium Chloride Carbon Dioxide BUN Creatinine Glucose POC Glucose 118 H 138 H Lactic Acid Calcium Ionized Calcium Phosphorus Magnesium Iron TIBC Ferritin Total Bilirubin Direct Bilirubin AST ALT Alkaline Phosphatase Total Creatine Kinase CK-MB (CK-2) Troponin T C-Reactive Protein Total Protein Albumin Triglycerides LDL Cholesterol Direct HDL Cholesterol Free T4 PTH Intact Urine WBC (Auto) Urine Creatinine Salicylates Acetaminophen Crossmatch 04/06/19 04/06/19 04/06/19 04:44 05:20 05:23 WBC RBC Hgb Hct RDW Plt Count Lymph % (Auto) [place] % (Auto) Lymph # Seg Neutrophils % Seg Neuts % (Manual) Lymphocytes % (Manual) Monocytes % (Manual) Nucleated RBC % Seg Neutrophils # Seg Neutrophils # Man Lymphocytes # (Manual) Monocytes # (Manual) PT INR D-Dimer Heparin Anti-Xa Level POC ABG pH ABG pH POC ABG pCO2 POC ABG pO2 ABG pO2 104.0 H ABG HCO3 ABG O2 Saturation ABG Base Excess -2.1 L ABG Hemoglobin 7.3 L Oxyhemoglobin Sodium Potassium Chloride Carbon Dioxide BUN 64 H Creatinine 8.2 H Glucose 103 H POC Glucose 118 H Lactic Acid Calcium 7.3 L Ionized Calcium Phosphorus Magnesium Iron TIBC Ferritin Total Bilirubin Direct Bilirubin AST ALT Alkaline Phosphatase Total Creatine Kinase CK-MB (CK-2) Troponin T C-Reactive Protein Total Protein Albumin Triglycerides LDL Cholesterol Direct HDL Cholesterol Free T4 PTH Intact Urine WBC (Auto) Urine Creatinine Salicylates Acetaminophen Crossmatch
--- NOTE | 2019-04-06 16:55 | Progress Note ---
Assessment and Plan Cultures: 03/16/2019 sputum: salivary contamination 03/16/2019 Blood culture: no growth 03/17/2019 Urine culture no growth 03/17/2019 throat culture: no growth 03/26/2019 Blood culture: no growth 03/27/2019 Blood culture negative. 04/04/2019 blood culture NGTD Assessment: 43y/o male with possible psych history admitted on 03/16/2019 with: 1) Septic shock: pressors requirement is down. Only on one pressor. On amio gtt. Placed on multiple pressors on 03/28 due to acute GI bleed and severe Hg drop at 4.4. Noted fever 105 after right IJ exchanged overwire on 03/27, fever is better; leukocytosis improving. Fever source is unclear - suspect IJ DVT ?thrombophlebitis, other ?NMS ?sinusitis, ?drug fever. Repeat blood culture no growth so far. Brain MRI shows no acute intracranial abnormality, mild nonspecific chronic white matter changes, fluid throughout the sinuses and masto id air cells. Venous US + right IJ DVT. Initial septic shock - Possible Infectious etiology v/s possibility of Neuroleptic Malignant Syndrome given psych history, high fever of 105F and ex tremely elevated CPK of >100K. Unclear if he was on any psych med. From ID standpoint, we will continue broad coverage for acute bacterial meningitis, tick borne illness, aspiration pneumonia. Blood culture negative UA with mild pyuria. HIV rapid negative. Strep A rapid ag negative. No obvious infectious source identified yet. 2) Probable aspiration pneumonia: Already completed adequate abx. 3) Acute respiratory failure: on the vent. Improving. 4) ?Right axillary edema: no abscess, US no collection seen 5) Acute encephalopathy: improving, awake, alert, calm. CT head showed diffuse cerebral edema ?artifact. But too unstable for LP at this time. Low suspicion for HSV meningoencephalitis given the degree of his initial shock and clinical status. Given nationwide acyclovir shortage and low suspicion, would not recommend IV Ganciclovir at this time. 6) Acute renal failure: renally dosing all abx, now on HD 7) Elevated LFTs/shock liver: also likely elevated from Rhabdomyolysis. Viral hepatitis panel negative. LFTs continue to improve. 8) Thrombocytopenia: multifactorial - better 9) Rhabdomyolysis: CK continues to improve 10) ?Enteritis: per CT ? no collection no perforation no obvious ischemic bowel. Gen. Surg following Recommendations: Ongoing fevers - continue renally adjusted cefepime to complete 10 days from 03/27 Wound care team consult - multiple skin abrasions Will follow. Katie Palmer MD [facility] ([facility]) M: [phone] O: [phone] F: [phone] Subjective Date of service: 04/06/19 Principal diagnosis: Metabolic Encephalopathy, GI bleed Interval history: Febrile last night. Now awake and alert but remains intubated. Off pressors and sedation. Objective - Exam Narrative Exam: General appearance: alert intubated opening eyes following commands Eyes: pupils dannie contracted poorly reactive, no jaundice HENT: Atraumatic; oropharynx with ETT/OGT Neck: no JVD Lungs:distant BS CV: RRR Abdomen: Soft, non-tender Extremities: marked dannie leg edema/arm edema Skin:no rash, +scrotal edema Psych: follows commands not agitated Neuro: follows commands not agitated Right IJ cath - Constitutional Vitals: Vital Signs Temp Pulse Resp BP Pulse Ox 98.3 F 115 H 15 99/49 100 04/06/19 12:43 04/06/19 16:05 04/06/19 16:05 04/06/19 16:05 04/06/19 16:05 Temperature -Last 24 Hours Temperature 98.3 F Temperature 98.8 F Temperature 98.8 F Temperature 102.7 F Temperature 102.3 F - Labs CBC & Chem 7: 04/06/19 04:44 04/06/19 04:44 Labs: Abnormal lab results 04/05/19 04/05/19 04/06/19 Range/Units 16:50 17:22 00:13 RBC (3.65-5.03) M/mm3 Hgb (11.8-15.2) gm/dl Hct (35.5-45.6) % RDW (13.2-15.2) % Plt Count (140-440) K/mm3 [place] % (Auto) (0.0-7.3) % Lymph # (1.2-5.4) K/mm3 ABG pO2 (80.0-90.0) mm Hg ABG Base Excess (-2.0-3.0) mmol/L ABG Hemoglobin (14.0-18.0) gm/dl BUN (9-20) mg/dL Creatinine (0.8-1.5) mg/dL Glucose (75-100) mg/dL POC Glucose 118 H 138 H (70-105) Calcium (8.4-10.2) mg/dL Urine WBC (Auto) 40.0 H (0.0-6.0) /HPF 04/06/19 04/06/19 04/06/19 Range/Units 04:44 04:44 05:20 RBC 2.48 L (3.65-5.03) M/mm3 Hgb 7.5 L (11.8-15.2) gm/dl Hct 22.9 L (35.5-45.6) % RDW 16.0 H (13.2-15.2) % Plt Count 107 L (140-440) K/mm3 [place] % (Auto) 10.7 H (0.0-7.3) % Lymph # 1.0 L (1.2-5.4) K/mm3 ABG pO2 104.0 H (80.0-90.0) mm Hg ABG Base Excess -2.1 L (-2.0-3.0) mmol/L ABG Hemoglobin 7.3 L (14.0-18.0) gm/dl BUN 64 H (9-20) mg/dL Creatinine 8.2 H (0.8-1.5) mg/dL Glucose 103 H (75-100) mg/dL POC Glucose (70-105) Calcium 7.3 L (8.4-10.2) mg/dL Urine WBC (Auto) (0.0-6.0) /HPF 04/06/19 Range/Units 05:23 RBC (3.65-5.03) M/mm3 Hgb (11.8-15.2) gm/dl Hct (35.5-45.6) % RDW (13.2-15.2) % Plt Count (140-440) K/mm3 [place] % (Auto) (0.0-7.3) % Lymph # (1.2-5.4) K/mm3 ABG pO2 (80.0-90.0) mm Hg ABG Base Excess (-2.0-3.0) mmol/L ABG Hemoglobin (14.0-18.0) gm/dl BUN (9-20) mg/dL Creatinine (0.8-1.5) mg/dL Glucose (75-100) mg/dL POC Glucose 118 H (70-105) Calcium (8.4-10.2) mg/dL Urine WBC (Auto) (0.0-6.0) /HPF
[2019-04-06] MEDS: LORazepam 2 MG/ML VIAL IV PRN (23:47)
[2019-04-06] MEDS: ONDANSETRON 4 MG/2 ML INJ IV PRN (23:50)
[2019-04-07] MEDS: METOPROLOL TARTRATE 25 MG TAB PO SCH ×5 (00:05→21:54)
[2019-04-07 06:00] LABS: Basophils % (Auto) 0.7 % (0.0-1.8); Eosinophils # (Auto) 0.2 K/mm3 (0.0-0.4); Eosinophils % (Auto) 3.7 % (0.0-4.3); Hematocrit 23.8 % (35.5-45.6); Hemoglobin 7.9 gm/dl (11.8-15.2); Lymphocytes # (Auto) 1.1 K/mm3 (1.2-5.4); Lymphocytes % (Auto) 19.7 % (13.4-35.0); Mean Corpuscular HGB Conc 33 % (32-34); Mean Corpuscular Volume 92 fl (84-94); Monocytes # (Auto) 0.6 K/mm3 (0.0-0.8); Monocytes % (Auto) 10.3 % (0.0-7.3); Red Blood Count 2.59 M/mm3 (3.65-5.03); Red Cell Distribution Width 15.8 % (13.2-15.2)
[2019-04-07 06:07] LABS: Platelet Count 89 K/mm3 (140-440)
[2019-04-07 06:26] LABS: Calcium 7.9 mg/dL (8.4-10.2)
[2019-04-07] MEDS: METOCLOPRAMIDE 10 MG/2 ML INJ IV SCH ×3 (07:12→18:00)
[2019-04-07] MEDS: AMIODARONE 200 MG TAB PO SCH ×3 (08:00→21:54)
[2019-04-07] MEDS: CALCIUM ACETATE 667 MG CAP PO SCH ×3 (08:00→21:54)
[2019-04-07] MEDS: PANTOPRAZOLE 40 MG INJ IV SCH ×2 (09:05→21:55)
[2019-04-07] MEDS: PARICALCITOL 2 MCG/1 ML INJ IV SCH (09:05)
--- NOTE | 2019-04-07 10:11 | Progress Note ---
Assessment and Plan Assessment and plan: Patient is a 43-year-old man with history of GERD, obesity and mental illness who presented to [facility] ED on 03/16/2019 with altered mental status. He is visiting from [place] and was brought in by his friend. When he came to the ER, he was unable to speak or follow commands, in the ER he was found to have SVT with heart rate in the 250s. The patient was shocks and medicated. He became more confused and had trouble protecting his airway; therefore, he was then intubated. During this hospital coarse, he was found to have sepsis with septic shock, rhabdomyolysis, RUBEN, and multisystem organ failure. According to the patient's clinical findings, the patient likely has toxic metabolic encephalopathy. Acute hypoxic respiratory failure on mechanical ventilator greater than 96 hours , suspect ARDS: pulmonologis is following, trying to wean P.Afib/flutter with RVR: treated with IV Amiodorone, Cardiology is following Torsade sparkle points/ventricular tachycardia Acute combine heart failure, EF 40%: Cardiology input noted, continue amiodarone drip, no beta-adela or CHRISTIN given hypotension, will need ischemic cardiac stratification if he improves. Acute GI bleed, upper GI bleed due to PUD, EGD on 03/30 shows multiple ulcers, and large ulcer was rx with epi, unfortunately patient had melena again on 04/02, resolved, Protonix iv bid now Acute blood loss anemia, Transfused multiple units of PRBC, now improved, transfuse another unit as patient is actively bleeding Right IJ nonocclusive thrombosis, Discussed with vascular surgery, patient unable to tolerate anticoagulation due to thrombocytopenia and GI bleeding. Will monitor Septic shock with multiorgan failure, off pressors >48 hours: down to Levophed, continue to wean vasopressors Aspiration pneumonia: completed ABX Acute kidney injury, rhabdomyolysis, hyperkalemia due to ATN: Continue dialysis per nephrology Acute Metabolic Encephalopathy Severe metabolic acidosis, improved: monitoring BMP closely Rhabdomyolysis, CK trending down Thrombocytopenia, Likely due to sepsis, continue to monitor ?Right axillary edema: no abscess, US no collection seen DVT prophylaxis, no anticoagulation given multiple episodes of GI bleed and thrombocytopenia. SCDs Febrile: ID to evaluate, get blood cultures, ua poor prognosis DNR History Interval history: Patient was seen and examined. Follow-up on current diagnosis of resp failure. No overnight events reported to me. Imaging, nursing note, chart, labs and old chart reviewed. Patient intubated and sedated. Hospitalist Physical - Physical exam Narrative exam: Gen: critically ill, bmi 47, intubated and sedated HEENT: NCAT, EOMI, PERRL, OP eTT and NGt in place Neck: supple, no adenopathy, no thyromegaly, CVS/Heart: irregular irregular, normal S1S2, pulses present bilaterally Chest/Lungs: Symmetrical chest expansion, good air entry bilaterally GI/Abdomen: soft, NTND, good bowel sounds, no guarding or rebound /Bladder: no suprapubic tenderness, no CVA or paraspinal tenderness Extermity/Skin: dependent edema MSK: sedated Neuro: sedated Psych: sedated - Constitutional Vitals: Temp Pulse Resp BP Pulse Ox 99.1 F 79 21 114/67 99 04/07/19 08:00 04/07/19 09:30 04/07/19 09:30 04/07/19 09:30 04/07/19 09:30 General appearance: Present: other (intubated) Results - Labs CBC & Chem 7: 04/07/19 05:40 04/07/19 05:40 Labs: Laboratory Last Values WBC 5.6 K/mm3 (4.5-11.0) 04/07/19 05:40 RBC 2.59 M/mm3 (3.65-5.03) L 04/07/19 05:40 Hgb 7.9 gm/dl (11.8-15.2) L 04/07/19 05:40 Hct 23.8 % (35.5-45.6) L 04/07/19 05:40 MCV 92 fl (84-94) 04/07/19 05:40 MCH 31 pg (28-32) 04/07/19 05:40 MCHC 33 % (32-34) 04/07/19 05:40 RDW 15.8 % (13.2-15.2) H 04/07/19 05:40 Plt Count 89 K/mm3 (140-440) L 04/07/19 05:40 Lymph % (Auto) 19.7 % (13.4-35.0) 04/07/19 05:40 [place] % (Auto) 10.3 % (0.0-7.3) H 04/07/19 05:40 Eos % (Auto) 3.7 % (0.0-4.3) 04/07/19 05:40 Baso % (Auto) 0.7 % (0.0-1.8) 04/07/19 05:40 Lymph # 1.1 K/mm3 (1.2-5.4) L 04/07/19 05:40 [place] # 0.6 K/mm3 (0.0-0.8) 04/07/19 05:40 Eos # 0.2 K/mm3 (0.0-0.4) 04/07/19 05:40 Baso # 0.0 K/mm3 (0.0-0.1) 04/07/19 05:40 Add Manual Diff Complete 03/28/19 18:10 Total Counted 100 03/28/19 18:10 Seg Neutrophils % 65.6 % (40.0-70.0) 04/07/19 05:40 Seg Neuts % (Manual) 91.0 % (40.0-70.0) H 03/28/19 18:10 Band Neutrophils % 0 % 03/28/19 18:10 Lymphocytes % (Manual) 8.0 % (13.4-35.0) L 03/28/19 18:10 Reactive Lymphs % (Man) 0 % 03/28/19 18:10 Monocytes % (Manual) 1.0 % (0.0-7.3) 03/28/19 18:10 Eosinophils % (Manual) 0 % (0.0-4.3) 03/28/19 18:10 Basophils % (Manual) 0 % (0.0-1.8) 03/28/19 18:10 Metamyelocytes % 0 % 03/28/19 18:10 Myelocytes % 0 % 03/28/19 18:10 Promyelocytes % 0 % 03/28/19 18:10 Blast Cells % 0 % 03/28/19 18:10 Nucleated RBC % Not Reportable 03/28/19 18:10 Seg Neutrophils # 3.7 K/mm3 (1.8-7.7) 04/07/19 05:40 Seg Neutrophils # Man 22.6 K/mm3 (1.8-7.7) H 03/28/19 18:10 Band Neutrophils # 0.0 K/mm3 03/28/19 18:10 Lymphocytes # (Manual) 2.0 K/mm3 (1.2-5.4) 03/28/19 18:10 Abs React Lymphs (Man) 0.0 K/mm3 03/28/19 18:10 Monocytes # (Manual) 0.2 K/mm3 (0.0-0.8) 03/28/19 18:10 Eosinophils # (Manual) 0.0 K/mm3 (0.0-0.4) 03/28/19 18:10 Basophils # (Manual) 0.0 K/mm3 (0.0-0.1) 03/28/19 18:10 Metamyelocytes # 0.0 K/mm3 03/28/19 18:10 Myelocytes # 0.0 K/mm3 03/28/19 18:10 Promyelocytes # 0.0 K/mm3 03/28/19 18:10 Blast Cells # 0.0 K/mm3 03/28/19 18:10 WBC Morphology Not Reportable 03/28/19 18:10 Hypersegmented Neuts Not Reportable 03/28/19 18:10 Hyposegmented Neuts Not Reportable 03/28/19 18:10 Hypogranular Neuts Not Reportable 03/28/19 18:10 Smudge Cells Not Reportable 03/28/19 18:10 Toxic Granulation Not Reportable 03/28/19 18:10 Toxic Vacuolation Not Reportable 03/28/19 18:10 Dohle Bodies Not Reportable 03/28/19 18:10 Pelger-Huet Anomaly Not Reportable 03/28/19 18:10 Joyce Rods Not Reportable 03/28/19 18:10 Platelet Estimate Appears decreased 03/28/19 18:10 Clumped Platelets Not Reportable 03/28/19 18:10 Plt Clumps, EDTA Not Reportable 03/28/19 18:10 Large Platelets Not Reportable 03/28/19 18:10 Giant Platelets Not Reportable 03/28/19 18:10 Platelet Satelliting Not Reportable 03/28/19 18:10 Plt Morphology Comment Not Reportable 03/28/19 18:10 RBC Morphology Not Reportable 03/28/19 18:10 Dimorphic RBCs Not Reportable 03/28/19 18:10 Polychromasia Not Reportable 03/28/19 18:10 Hypochromasia Not Reportable 03/28/19 18:10 Poikilocytosis Not Reportable 03/28/19 18:10 Anisocytosis Few 03/28/19 18:10 Microcytosis Not Reportable 03/28/19 18:10 Macrocytosis Not Reportable 03/28/19 18:10 Spherocytes Not Reportable 03/28/19 18:10 Pappenheimer Bodies Not Reportable 03/28/19 18:10 Sickle Cells Not Reportable 03/28/19 18:10 Target Cells Not Reportable 03/28/19 18:10 Tear Drop Cells Not Reportable 03/28/19 18:10 Ovalocytes Not Reportable 03/28/19 18:10 Stomatocytes Few 03/26/19 Unknown Helmet Cells Not Reportable 03/28/19 18:10 Shrestha-Ramirez-Perez Bodies Not Reportable 03/28/19 18:10 Elsie Rings Not Reportable 03/28/19 18:10 Samantha Cells Not Reportable 03/28/19 18:10 Bite Cells Not Reportable 03/28/19 18:10 Crenated Cell Not Reportable 03/28/19 18:10 Elliptocytes Not Reportable 03/28/19 18:10 Acanthocytes (Spur) Not Reportable 03/28/19 18:10 Rouleaux Not Reportable 03/28/19 18:10 Hemoglobin C Crystals Not Reportable 03/28/19 18:10 Schistocytes Not Reportable 03/28/19 18:10 Malaria parasites Not Reportable 03/28/19 18:10 Phil Bodies Not Reportable 03/28/19 18:10 Hem Pathologist Commnt No 03/28/19 18:10 PT 15.3 Sec. (12.2-14.9) H 03/29/19 11:48 INR 1.24 (0.87-1.13) H 03/29/19 11:48 APTT 26.6 Sec. (24.2-36.6) 03/28/19 12:00 Fibrinogen 226 mg/dl (211-480) 03/28/19 12:00 D-Dimer 4845.98 ng/mlDDU (0-234) H 03/28/19 12:00 Heparin Anti-Xa Level 0.23 U.I./ml (0.3-0.7) L 03/28/19 05:13 POC ABG pH 7.423 (7.35-7.45) 04/05/19 12:06 ABG pH 7.388 pH Units (7.350-7.450) 04/06/19 05:20 POC ABG pCO2 39.1 (35-45) 04/05/19 12:06 ABG pCO2 38.5 mm Hg 04/06/19 05:20 POC ABG pO2 98 (80-105) 04/05/19 12:06 ABG pO2 104.0 mm Hg (80.0-90.0) H 04/06/19 05:20 POC ABG HCO3 25.5 (22-26 mml/L) 04/05/19 12:06 ABG HCO3 22.6 mmol/L (20.0-26.0) 04/06/19 05:20 POC ABG Total CO2 27 (23-27mmol/L) 04/05/19 12:06 POC ABG O2 Sat 98 04/05/19 12:06 ABG O2 Saturation 97.8 % (95.0-99.0) 04/06/19 05:20 ABG O2 Content 10.0 (0.0-44) 04/06/19 05:20 POC ABG Base Excess 1 ((-2) - (+3)mmol/L) 04/05/19 12:06 ABG Base Excess -2.1 mmol/L (-2.0-3.0) L 04/06/19 05:20 ABG Hemoglobin 7.3 gm/dl (14.0-18.0) L 04/06/19 05:20 ABG Carboxyhemoglobin 1.7 % (0.0-5.0) 04/06/19 05:20 ABG Methemoglobin 0.6 % (0.0-1.5) 04/06/19 05:20 Oxyhemoglobin 95.5 % (95.0-99.0) 04/06/19 05:20 FiO2 30 % 04/06/19 05:20 Sodium 136 mmol/L (137-145) L 04/07/19 05:40 Potassium 3.5 mmol/L (3.6-5.0) L 04/07/19 05:40 Chloride 98.6 mmol/L (98-107) 04/07/19 05:40 Carbon Dioxide 26 mmol/L (22-30) 04/07/19 05:40 Anion Gap 15 mmol/L 04/07/19 05:40 BUN 46 mg/dL (9-20) H 04/07/19 05:40 Creatinine 6.2 mg/dL (0.8-1.5) H 04/07/19 05:40 Estimated GFR 10 ml/min 04/07/19 05:40 BUN/Creatinine Ratio 7 % 04/07/19 05:40 Glucose 94 mg/dL (75-100) 04/07/19 05:40 POC Glucose 95 (70-105) 04/07/19 06:03 Lactic Acid 1.90 mmol/L (0.7-2.0) 03/21/19 21:31 Calcium 7.9 mg/dL (8.4-10.2) L 04/07/19 05:40 Ionized Calcium 3.7 mg/dL (4.8-5.6) L 03/30/19 12:09 Phosphorus 5.80 mg/dL (2.5-4.5) H D 04/03/19 08:30 Magnesium 1.90 mg/dL (1.7-2.3) 03/31/19 15:07 Iron 26 ug/dL (49-181) L 04/02/19 05:03 TIBC 138 mcg/dL (250-450) L 04/02/19 05:03 Ferritin 607.0 ng/mL (13.0-400.0) H 04/02/19 05:03 Total Bilirubin 0.50 mg/dL (0.1-1.2) 03/31/19 08:20 Direct Bilirubin 0.4 mg/dL (0-0.2) H 03/31/19 08:20 Indirect Bilirubin 0.1 mg/dL 03/31/19 08:20 AST 60 units/L (5-40) H 03/31/19 08:20 ALT 30 units/L (7-56) 03/31/19 08:20 Alkaline Phosphatase 59 units/L (35-129) 03/31/19 08:20 Total Creatine Kinase 62 units/L (55-170) 04/07/19 05:40 CK-MB (CK-2) 54.3 ng/mL (0.0-4.0) H 03/17/19 07:16 CK-MB (CK-2) Rel Index 0.0 (0-4) 03/17/19 07:16 Troponin T 0.058 ng/mL (0.00-0.029) H 03/17/19 07:16 C-Reactive Protein 13.30 mg/dL (0.00-1.30) H 03/20/19 14:45 Total Protein 4.8 g/dL (6.3-8.2) L 03/31/19 08:20 Albumin 2.1 g/dL (3.9-5) L 03/31/19 08:20 Albumin/Globulin Ratio 0.8 % 03/31/19 08:20 Triglycerides 309 mg/dL (2-149) H 03/29/19 06:22 Cholesterol 88 mg/dL (50-199) 03/16/19 22:32 LDL Cholesterol Direct 10 mg/dL (50-130) L 03/16/19 22:32 HDL Cholesterol 7 mg/dL (40-59) L 03/16/19 22:32 Cholesterol/HDL Ratio 12.57 % 03/16/19 22:32 Vitamin B12 903.0 pg/mL (211-911) 04/02/19 05:03 Folate 8.05 ng/mL (7.3-26.0) 04/02/19 05:03 Procalcitonin 25.42 ng/mL (<0.15) 03/27/19 19:21 TSH 2.200 mlU/mL (0.270-4.200) 03/16/19 17:05 Free T4 0.72 ng/dL (0.76-1.46) L 03/16/19 17:05 PTH Intact 329.9 pg/mL (15-65) H 03/25/19 05:00 Urine Color Kathy (Yellow) 04/05/19 16:50 Urine Turbidity Cloudy (Clear) 04/05/19 16:50 Urine pH 5.0 (5.0-7.0) 04/05/19 16:50 Ur Specific [place] 1.018 (1.003-1.030) 04/05/19 16:50 Urine Protein 100 mg/dl mg/dL (Negative) 04/05/19 16:50 Urine Glucose (UA) Neg mg/dL (Negative) 04/05/19 16:50 Urine Ketones Neg mg/dL (Negative) 04/05/19 16:50 Urine Blood Lg (Negative) 04/05/19 16:50 Urine Nitrite Neg (Negative) 04/05/19 16:50 Urine Bilirubin Neg (Negative) 04/05/19 16:50 Urine Urobilinogen < 2.0 mg/dL (<2.0) 04/05/19 16:50 Ur Leukocyte Esterase Tr (Negative) 04/05/19 16:50 Urine WBC (Auto) 40.0 /HPF (0.0-6.0) H 04/05/19 16:50 Urine RBC (Auto) > 182.0 /HPF (0.0-6.0) 04/05/19 16:50 U Epithel Cells (Auto) < 1.0 /HPF (0-13.0) 03/17/19 16:05 Amorphous Crystals 1+ 04/05/19 16:50 Urine Mucus Few /HPF 03/17/19 16:05 Urine Sperm 2+ /HPF ([employer]) 03/17/19 16:05 Urine Eosinophils None seen (None Seen) 03/17/19 16:05 Urine Creatinine 106.6 mg/dL (0.1-20.0) H 03/17/19 16:05 Urine Sodium 95 mmol/L 03/17/19 16:05 Vancomycin Trough 11.5 ug/mL (5.0-20.0) 03/18/19 13:19 Random Vancomycin 16.6 ug/mL (0-40.0) 03/30/19 04:31 Salicylates < 0.3 mg/dL (2.8-20.0) L 03/16/19 17:05 Urine Opiates Screen Presumptive negative 03/17/19 16:05 Urine Methadone Screen Presumptive negative 03/17/19 16:05 Acetaminophen < 5.0 ug/mL (10.0-30.0) L 03/16/19 17:05 Ur Barbiturates Screen Presumptive negative 03/17/19 16:05 Ur Phencyclidine Scrn Presumptive negative 03/17/19 16:05 Ur Amphetamines Screen Presumptive negative 03/17/19 16:05 U Benzodiazepines Scrn Presumptive positive 03/17/19 16:05 Urine Cocaine Screen Presumptive negative 03/17/19 16:05 U Marijuana (THC) Screen Presumptive negative 03/17/19 16:05 Drugs of Abuse Note Disclamer 03/17/19 16:05 Plasma/Serum Alcohol < 0.01 % (0-0.07) 03/16/19 17:05 Hepatitis A IgM Ab Non-reactive (NonReactive) 03/18/19 13:18 Hep Bs Antigen Non-reactive (Negative) 03/18/19 13:18 Hep B Core IgM Ab Non-reactive (NonReactive) 03/18/19 13:18 Hepatitis C Antibody Non-reactive (NonReactive) 03/18/19 13:18 HIV 1&2 Antibody Rapid Non react (Non React) 03/17/19 11:52 HIV P24 Antigen Non react (Non React) 03/17/19 11:52 Influenza A (Rapid) Negative (Negative) 03/17/19 17:00 Influenza B (Rapid) Negative (Negative) 03/17/19 17:00 Group A Strep Rapid Negative (Negative) 03/17/19 17:00 Miscellaneous Test Flexitest 1 03/21/19 12:00 Blood Type A POSITIVE 04/02/19 16:34 Antibody Screen Negative 04/02/19 16:34 Crossmatch See Detail 04/02/19 16:34 Active Medications - Current Medications Current Medications: Generic Name Dose Route Start Last Admin Trade Name Freq PRN Reason Stop Dose Admin Acetaminophen 650 mg 04/02/19 23:26 04/06/19 00:22 Tylenol PO 650 mg Q4H PRN Administration Pain, Mild (1-3),temp>100.5 Albuterol 2.5 mg 03/29/19 13:08 Proventil IH Q4HRT PRN Shortness Of Breath Amiodarone HCl 400 mg 04/04/19 12:00 04/07/19 08:00 Cordarone PO 400 mg TID PAOLO Administration Lipase/Protease/Amylase 1 each 03/17/19 14:[address] 10,500 Unit FEEDTUBE PRN PRN For Clogged Feeding Tube Calcium Acetate 1,334 mg 03/31/19 14:00 04/07/19 08:00 Phoslo PO 1,334 mg TID PAOLO Administration Dextrose 50 gm 03/19/19 18:39 03/26/19 23:26 D50w (25gm) Vial IV 50 gm PRN PRN Administration Hypoglycemia Epoetin Jet 20,000 unit 03/31/19 10:15 04/06/19 10:41 Procrit SUB-Q 20,000 unit NEYMAR PRN Administration hemodialysis Fentanyl 50 mcg 03/26/19 12:00 04/05/19 14:47 Sublimaze IV 50 mcg Q1H PRN Administration Pain, Moderate (4-6) Hydrophilic Ointment 1 applic 03/16/19 15:50 Vaseline Lip Therapy TP Q2HR PRN Dry Lips Phenylephrine HCl 100 mg/ 100 mls @ 3 mls/hr 03/17/19 02:30 03/19/19 18:48 Sodium Chloride IV Infused TITR PAOLO Titration Protocol 50 MCG/MIN Norepinephrine 4 mg in 250 mls @ 7.5 mls/hr 03/27/19 22:16 04/03/19 15:00 Levophed Drip 4 Mg/Ns 250 Ml IV 0 mcg/min TITR PAOLO 0 mls/hr Titration Protocol 2 MCG/MIN Vasopressin 20 unit/ Sodium 101 mls @ 9.09 mls/hr 03/28/19 09:00 04/03/19 00:00 Chloride IV 0 units/min TITR PAOLO 0 mls/hr Titration Protocol 0.03 UNITS/MIN Sodium Chloride 100 mls @ 999 mls/hr 04/04/19 10:00 Nacl 0.9% IV NEYMAR PRN Hypotension Lorazepam 2 mg 03/26/19 11:54 04/06/19 23:47 Ativan IV 2 mg Q1H PRN Administration Agitation Metoclopramide HCl 5 mg 04/02/19 18:00 04/07/19 07:12 Reglan IV 04/07/19 23:59 5 mg Q6HR PAOLO Administration Metoprolol Tartrate 12.5 mg 04/05/19 10:00 04/07/19 09:04 Lopressor PO 12.5 mg Q6H PAOLO Administration Multi-Ingred Cream/Lotion/Oil/Oint 1 applic 03/16/19 15:50 03/19/19 20:10 Artificial Tears Ophth Oint OU 1 applic Q4HR PRN Administration Dry Eye(s) Ondansetron HCl 4 mg 03/16/19 22:21 04/06/19 23:50 Zofran IV 4 mg Q8H PRN Administration Nausea And Vomiting Pantoprazole Sodium 40 mg 04/04/19 22:00 04/07/19 09:05 Protonix IV 40 mg BID PAOLO Administration Paricalcitol 2 mcg 03/30/19 10:00 04/07/19 09:05 Zemplar IV 2 mcg DAILY PAOLO Administration Simple Syrup 15 ml 03/17/19 14:45 03/26/19 23:19 Simple Syrup FEEDTUBE 15 ml PRN PRN Administration Hypoglycemia Simple Syrup 30 ml 03/17/19 14:45 Simple Syrup FEEDTUBE PRN PRN Hypoglycemia Sodium Bicarbonate 325 mg 03/17/19 14:45 Sodium Bicarbonate FEEDTUBE PRN PRN For Clogged Feeding Tube Nutrition/Malnutrition Assess - Dietary Evaluation Nutrition/Malnutrition Findings: Nutrition Notes Start: 03/17/19 14:22 Freq: Status: Active Protocol: Document 04/06/19 09:05 AIYANA (Rec: 04/06/19 09:34 AIYANA [email or web address]) Co-Sign 04/06/19 09:05 LM Nutrition Notes Initial or Follow up Reassessment Current Diagnosis Acute Kidney Injury Other Pertinent Diagnosis on HD, Septic shock,Multiple organ failure, encephalopathy, rhabdomyolysis Current Diet Nepro with Carbsteady at 55ml/ hr Labs/Tests BUN 64 Cr 8.2 Ca 7.3 Pertinent Medications Reviewed Height 6 ft Weight 148.5 kg [place] Body Weight (kg) 80.90 BMI 44.4 Weight change and time frame Wt change noted. Pt has edema. Subjective/Other Information TF running at 30ml/hr. Will increase 10ml per day for tolerance per MD Percent of energy/protein needs met: 62%/29% Burn Absent Trauma Absent Minimum of two criteria No #1 Nutrition Diagnosis Inadequate oral intake Diagnosis Progress(for reassessment Continues documentation) Is patient on ventilator? Yes Is Patient Ambulatory and/or Out of Bed No REE-([facility]-confined to bed) 2892.144 Kcal/Kg value to use for calculation 14 Approximate Energy Requirements Using 9 kcal/Kg Calculation Used for Recommendations Kcal/kg Additional Notes Protein Needs: 202g (2.5g/kg IBW 80.9) Fluid Needs: 1 ml/kcal or per MD Nutrition Intervention Change Diet Order: Continue advancing TF Nutrition Support: Nepro 1.8 at 30ml/hr Water flush 130ml q4hr Kcal 1,296 Protein (gm) 58 Fluid (mL) 523 Goal #1 Advance TF to goal rate when medically feasible Goal #2 Meet at least 75% of energy and protein needs Anticipated Discharge Needs: Unable to determine at this time Follow-Up By: 04/09/19 Additional Comments F/U for TF advancement and goal rate
--- NOTE | 2019-04-07 13:01 | Progress Note ---
Assessment and Plan Continue amiodarone and low dose beta adela. Will ultimately reduce amiodarone dose in the next 24-48 hours to 200 mg bid. - Patient Problems (1) Cardiopulmonary arrest Current Visit: Yes Status: Acute (2) Acute respiratory failure Current Visit: Yes Status: Acute (3) Paroxysmal atrial fibrillation with RVR Current Visit: Yes Status: Acute (4) Septic shock Current Visit: Yes Status: Acute (5) Ventricular tachycardia Current Visit: Yes Status: Acute (6) Metabolic encephalopathy Current Visit: Yes Status: Acute (7) Acute renal failure Current Visit: Yes Status: Acute (8) Thrombocytopenia Current Visit: Yes Status: Acute (9) GI bleed Current Visit: Yes Status: Acute (10) DVT (deep venous thrombosis) Current Visit: Yes Status: Acute Subjective Date of service: 04/07/19 Principal diagnosis: C-P arrest, resp failure, PAF w RVR, ARF, Septic shock, VT, Asp pneumonia Interval history: Awake and responsive. In NSR. Objective Vital Signs Last Vital Signs Temp 99.1 F 04/07/19 08:00 Pulse 82 04/07/19 11:34 Resp 21 04/07/19 09:30 BP 118/58 04/07/19 11:34 Pulse Ox 100 04/07/19 11:34 - Physical Examination General: No Apparent Distress, Other (intubated) HEENT: Positive: EOMI, Normocephaly, Mucus Membranes Moist Neck: Positive: neck supple, trachea midline Cardiac: Positive: Reg Rate and Rhythm, S1/S2 Lungs: Positive: Rhonchi Neuro: Positive: Other (Awake, responsive) Abdomen: Positive: Soft, Active Bowel Sounds. Negative: Tender Skin: Positive: Clear. Negative: Rash Musculoskeletal: Normal Range of Motion Extremities: Present: normal - Labs and Meds CBC 04/07/19 Range/Units 05:40 WBC 5.6 (4.5-11.0) K/mm3 RBC 2.59 L (3.65-5.03) M/mm3 Hgb 7.9 L (11.8-15.2) gm/dl Hct 23.8 L (35.5-45.6) % Plt Count 89 L (140-440) K/mm3 Lymph # 1.1 L (1.2-5.4) K/mm3 [place] # 0.6 (0.0-0.8) K/mm3 Eos # 0.2 (0.0-0.4) K/mm3 Baso # 0.0 (0.0-0.1) K/mm3 Comprehensive Metabolic Panel 04/07/19 Range/Units 05:40 Sodium 136 L (137-145) mmol/L Potassium 3.5 L (3.6-5.0) mmol/L Chloride 98.6 (98-107) mmol/L Carbon Dioxide 26 (22-30) mmol/L BUN 46 H (9-20) mg/dL Creatinine 6.2 H (0.8-1.5) mg/dL Glucose 94 (75-100) mg/dL Calcium 7.9 L (8.4-10.2) mg/dL - Imaging and Cardiology Echo: report reviewed ( EF 40-45%, impaired relaxation. ) - Telemetry EKG Rhythm: Sinus Rhythm - Allied health notes Allied health notes reviewed: RT
--- NOTE | 2019-04-07 14:11 | Progress Note ---
Assessment and Plan 1. Acute kidney injury: Vasomotor RUBEN in the setting of shock / volume depletion / Rhabdo. Baseline renal function is unknown. CT abdomen was negative for obstructive nephropathy. Monitor renal function. Renal prognosis is guarded. Avoid nephrotoxic agents. Meds dosage based on GFR. Patient was started on hemodialysis on 03/18/19 due to worsening metabolic acidosis and hyperkalemia. Hemodialysis: 03/18, 03/19, 03/20, 03/22, 03/23, 03/24, 03/26, 03/28, 03/29, 03/31, 04/02, 04/04, 04/06. 2. FEN: Hyperkalemia, improved. Hyponatremia, improved. Metabolic acidosis, on maintenance HD. Volume overload, UF with HD as tolerated. Hypocalcemia, likely multifactorial. On Phoslo and Zemplar. Monitor lytes. 3. Septic shock: Followed by ID. Currently off pressors. 4. Rhabdomyolysis: Improved. 5. SVT / V.tach: Followed by Cards. 6. Respiratory failure: Extubated. 7. Severe anemia: S/p PRBC. On Epogen. 8. A.fib with RVR. 9. Elevated transaminases. 10. Encephalopathy. Examination: General appearance: well-developed, appears stated age, obese, on VM O2 HEENT: Atraumatic EYES: Pupils reacting to light Neck: supple Respiratory: CTAB, decreased breath sounds Cardiology: irregular, S1S2 heard, no murmur Gastrointestinal: no tenderness, obese, BS heard Integumentary: no rash noted Neurologic: follows command, confused Ext: 1+ edema of all 4 extremities Hemodialysis access: R IJ temp catheter Subjective Date of service: 04/07/19 Principal diagnosis: C-P arrest, resp failure, PAF w RVR, ARF, Septic shock, VT, Asp pneumonia Interval history: Patient was seen and examined at the bedside. Patient self extubated. Objective - Vital Signs Vital signs: Vital Signs - 12hr 04/07/19 04/07/19 04/07/19 02:15 02:30 02:45 Temperature Pulse Rate 79 78 79 Pulse Rate [ From Monitor] Respiratory 21 18 20 Rate Blood Pressure 113/57 106/58 113/56 O2 Sat by Pulse 98 99 99 Oximetry 04/07/19 04/07/19 04/07/19 03:00 03:15 03:30 Temperature Pulse Rate 80 81 80 Pulse Rate [ From Monitor] Respiratory 22 22 20 Rate Blood Pressure 106/58 108/59 110/56 O2 Sat by Pulse 99 99 99 Oximetry 04/07/19 04/07/19 04/07/19 03:45 04:00 04:15 Temperature 98.2 F Pulse Rate 86 86 86 Pulse Rate [ 86 From Monitor] Respiratory 25 H 18 21 Rate Blood Pressure 114/60 118/56 109/61 O2 Sat by Pulse 91 93 97 Oximetry 04/07/19 04/07/19 04/07/19 04:30 04:45 04:49 Temperature Pulse Rate 83 81 82 Pulse Rate [ From Monitor] Respiratory 21 21 Rate Blood Pressure 116/59 112/58 112/58 O2 Sat by Pulse 98 98 98 Oximetry 04/07/19 04/07/19 04/07/19 05:00 05:31 06:01 Temperature Pulse Rate 81 82 80 Pulse Rate [ From Monitor] Respiratory 19 22 21 Rate Blood Pressure 115/59 115/59 115/59 O2 Sat by Pulse 98 99 99 Oximetry 04/07/19 04/07/19 04/07/19 06:30 07:00 07:13 Temperature Pulse Rate 79 79 81 Pulse Rate [ From Monitor] Respiratory 22 19 Rate Blood Pressure 118/53 113/56 113/56 O2 Sat by Pulse 99 99 Oximetry 04/07/19 04/07/19 04/07/19 07:30 07:50 07:57 Temperature Pulse Rate 83 85 82 Pulse Rate [ From Monitor] Respiratory 19 Rate Blood Pressure 116/55 113/58 114/58 O2 Sat by Pulse 99 100 100 Oximetry 04/07/19 04/07/19 04/07/19 08:00 08:30 09:00 Temperature 99.1 F Pulse Rate 82 83 82 Pulse Rate [ 78 From Monitor] Respiratory 22 20 17 Rate Blood Pressure 114/58 116/60 115/61 O2 Sat by Pulse 100 100 100 Oximetry 04/07/19 04/07/19 04/07/19 09:04 09:30 11:34 Temperature Pulse Rate 82 79 82 Pulse Rate [ From Monitor] Respiratory 21 Rate Blood Pressure 115/61 114/67 118/58 O2 Sat by Pulse 99 100 Oximetry 04/07/19 12:00 Temperature 99.2 F Pulse Rate Pulse Rate [ From Monitor] Respiratory Rate Blood Pressure O2 Sat by Pulse Oximetry - Lab 04/07/19 05:40 04/07/19 05:40 Most recent lab results ABG pH 7.388 pH Units (7.350-7.450) 04/06/19 05:20 ABG pCO2 38.5 mm Hg 04/06/19 05:20 ABG pO2 104.0 mm Hg (80.0-90.0) H 04/06/19 05:20 ABG HCO3 22.6 mmol/L (20.0-26.0) 04/06/19 05:20 ABG O2 Saturation 97.8 % (95.0-99.0) 04/06/19 05:20 Calcium 7.9 mg/dL (8.4-10.2) L 04/07/19 05:40 Phosphorus 5.80 mg/dL (2.5-4.5) H D 04/03/19 08:30 Magnesium 1.90 mg/dL (1.7-2.3) 03/31/19 15:07 Urine Creatinine 106.6 mg/dL (0.1-20.0) H 03/17/19 16:05 Urine Sodium 95 mmol/L 03/17/19 16:05 Medications & Allergies - Medications Allergies/Adverse Reactions: Allergies No Known Allergies Allergy (Unverified 03/16/19 17:17) Home Medications: Home Medications Medication Instructions Recorded Confirmed Last Taken Type Unobtainable 03/18/19 03/18/19 Unknown History Active Medications: Generic Name Dose Route Start Last Admin Trade Name Freq PRN Reason Stop Dose Admin Acetaminophen 650 mg 04/02/19 23:26 04/06/19 00:22 Tylenol PO 650 mg Q4H PRN Administration Pain, Mild (1-3),temp>100.5 Albuterol 2.5 mg 03/29/19 13:08 Proventil IH Q4HRT PRN Shortness Of Breath Amiodarone HCl 400 mg 04/04/19 12:00 04/07/19 08:00 Cordarone PO 400 mg TID PAOLO Administration Lipase/Protease/Amylase 1 each 03/17/19 14:[address] 10,500 Unit FEEDTUBE PRN PRN For Clogged Feeding Tube Calcium Acetate 1,334 mg 03/31/19 14:00 04/07/19 08:00 Phoslo PO 1,334 mg TID PAOLO Administration Dextrose 50 gm 03/19/19 18:39 03/26/19 23:26 D50w (25gm) Vial IV 50 gm PRN PRN Administration Hypoglycemia Epoetin Jet 20,000 unit 03/31/19 10:15 04/06/19 10:41 Procrit SUB-Q 20,000 unit NEYMAR PRN Administration hemodialysis Fentanyl 50 mcg 03/26/19 12:00 04/05/19 14:47 Sublimaze IV 50 mcg Q1H PRN Administration Pain, Moderate (4-6) Hydrophilic Ointment 1 applic 03/16/19 15:50 Vaseline Lip Therapy TP Q2HR PRN Dry Lips Phenylephrine HCl 100 mg/ 100 mls @ 3 mls/hr 03/17/19 02:30 03/19/19 18:48 Sodium Chloride IV Infused TITR PAOLO Titration Protocol 50 MCG/MIN Norepinephrine 4 mg in 250 mls @ 7.5 mls/hr 03/27/19 22:16 04/03/19 15:00 Levophed Drip 4 Mg/Ns 250 Ml IV 0 mcg/min TITR PAOLO 0 mls/hr Titration Protocol 2 MCG/MIN Vasopressin 20 unit/ Sodium 101 mls @ 9.09 mls/hr 03/28/19 09:00 04/03/19 00:00 Chloride IV 0 units/min TITR PAOLO 0 mls/hr Titration Protocol 0.03 UNITS/MIN Sodium Chloride 100 mls @ 999 mls/hr 04/04/19 10:00 Nacl 0.9% IV NEYMAR PRN Hypotension Lorazepam 2 mg 03/26/19 11:54 04/06/19 23:47 Ativan IV 2 mg Q1H PRN Administration Agitation Metoclopramide HCl 5 mg 04/02/19 18:00 04/07/19 12:00 Reglan IV 04/07/19 23:59 5 mg Q6HR PAOLO Administration Metoprolol Tartrate 12.5 mg 04/05/19 10:00 04/07/19 09:04 Lopressor PO 12.5 mg Q6H PAOLO Administration Multi-Ingred Cream/Lotion/Oil/Oint 1 applic 03/16/19 15:50 03/19/19 20:10 Artificial Tears Ophth Oint OU 1 applic Q4HR PRN Administration Dry Eye(s) Ondansetron HCl 4 mg 03/16/19 22:21 04/06/19 23:50 Zofran IV 4 mg Q8H PRN Administration Nausea And Vomiting Pantoprazole Sodium 40 mg 04/04/19 22:00 04/07/19 09:05 Protonix IV 40 mg BID PAOLO Administration Paricalcitol 2 mcg 03/30/19 10:00 04/07/19 09:05 Zemplar IV 2 mcg DAILY PAOLO Administration Simple Syrup 15 ml 03/17/19 14:45 03/26/19 23:19 Simple Syrup FEEDTUBE 15 ml PRN PRN Administration Hypoglycemia Simple Syrup 30 ml 03/17/19 14:45 Simple Syrup FEEDTUBE PRN PRN Hypoglycemia Sodium Bicarbonate 325 mg 03/17/19 14:45 Sodium Bicarbonate FEEDTUBE PRN PRN For Clogged Feeding Tube
--- NOTE | 2019-04-07 18:01 | Progress Note ---
Assessment and Plan Severe sepsis with shock. Right axilla abscess versus localized pannus/fatty collection. Acute hypoxemic respiratory failure, on mechanical ventilator support. Likely aspiration pneumonia, bilateral. Morbid obesity. Acute kidney injury secondary to ATN on HD. Leukocytosis-resolved Elevated serum transaminases/possible shock liver. Acute encephalopathy, toxic metabolic Thrombocytopenia- etiology, multifactorial- improving RIJ non-occlusive thrombus Oropharyngeal dysphagia Acute blood loss anemia with hemorrhagic shock- resolved -SBT today PSV and titrate to Tidal volumes >350, extubate if he meets criteria -wean FiO2 for O2 sats>92% -continue reglan , advance tube feeding as tolerated -Continue Seroquel 50mg qhs to help with agitation. -Monitor QTc as he is on multiple medications that can prolong QT -Antibiotics per ID, completes Cefepime today -Stop continuous sedation and monitor mental status. If needed use prn fentanyl for pain - continue HD/UF per nephrology - VAP bundle addressed -Aspiration precautions, HOB >40 - continue daily SAT's and SBT assessment as tolerated - prn analgesia per CPOT score - prn supportive blood transfusions to keep HgB > 7.0 - Monitor hemodynamics closely - continue mobility protocols and off loading as tolerated for pressure ulcer prevention - continue to avoid nephrotoxins, adjust all medications for GFR and CRCL - continue GI & VTE prophylaxis ( SCDs and therapeutic pantoprazole, dosed for renal function) - accuchecks with glycemic control per SSI for target BG of 140-180 mg/dl - continue other care per attending / other consultants CONDITION: CRITICAL PROGNOSIS: GUARDED CODE STATUS: DNAR Discussed extensively with RT/RN/ICU-IDT The high probability of a clinically significant, sudden or life threatening deterioration of the [respiratory, renal, neurologic and Cardiac] systems required my full and direct attention, intervention and personal management. The aggregate critical care time was 30 minutes. This time is in addition to time spent performing reported procedures but includes the following: [x] Data Review and interpretation [x] Patient assessment and monitoring of vital signs [x] Documentation [x] Medication orders and management Subjective Date of service: 04/07/19 Principal diagnosis: C-P arrest, resp failure, PAF w RVR, ARF, Septic shock, VT, Asp pneumonia Interval history: Patient is seen today for: Severe sepsis with shock; Acute hypoxemic respiratory failure; Aspiration pneumonia; Morbid obesity; Rhabdomyolysis; Acute kidney injury; Morbid obesity; Elevated serum transaminases/possible shock liver; Acute encephalopathy (Toxic/Met) Seen and examined at bedside; 24hour events reviewed; nursing and respiratory care staff consulted; no adverse overnight events reported to me; resting peacefully in bed; remains off vasopressors; remains critically ill on MVS; Tolerating tube feedings, advancing by 10cc daily as tolerated- currently on 40cc/hour; Vitals, labs, medications, chart and imaging reviewed. Tolerated PSV trials, this morning. Goal to extubate Objective Vital Signs - 12hr 04/07/19 04/07/19 04/07/19 06:01 06:30 07:00 Temperature Pulse Rate 80 79 79 Pulse Rate [ From Monitor] Respiratory 21 22 19 Rate Blood Pressure 115/59 118/53 113/56 O2 Sat by Pulse 99 99 99 Oximetry 04/07/19 04/07/19 04/07/19 07:13 07:30 07:50 Temperature Pulse Rate 81 83 85 Pulse Rate [ From Monitor] Respiratory 19 Rate Blood Pressure 113/56 116/55 113/58 O2 Sat by Pulse 99 100 Oximetry 04/07/19 04/07/19 04/07/19 07:57 08:00 08:30 Temperature 99.1 F Pulse Rate 82 82 83 Pulse Rate [ 78 From Monitor] Respiratory 22 20 Rate Blood Pressure 114/58 114/58 116/60 O2 Sat by Pulse 100 100 100 Oximetry 04/07/19 04/07/19 04/07/19 09:00 09:04 09:30 Temperature Pulse Rate 82 82 79 Pulse Rate [ From Monitor] Respiratory 17 21 Rate Blood Pressure 115/61 115/61 114/67 O2 Sat by Pulse 100 99 Oximetry 04/07/19 04/07/19 04/07/19 10:00 10:30 11:00 Temperature Pulse Rate 80 83 81 Pulse Rate [ From Monitor] Respiratory 32 H 22 19 Rate Blood Pressure 119/64 119/59 115/60 O2 Sat by Pulse 100 100 99 Oximetry 04/07/19 04/07/19 04/07/19 11:30 11:34 12:00 Temperature 99.2 F Pulse Rate 81 82 91 H Pulse Rate [ From Monitor] Respiratory 16 10 L Rate Blood Pressure 118/58 118/58 132/66 O2 Sat by Pulse 100 100 99 Oximetry 10/12/19 10/12/19 10/12/19 12:30 13:00 13:30 Temperature Pulse Rate 92 H 88 88 Pulse Rate [ From Monitor] Respiratory 25 H 29 H 31 H Rate Blood Pressure 128/70 128/71 128/78 O2 Sat by Pulse 100 99 100 Oximetry 04/07/19 04/07/19 04/07/19 14:00 14:13 14:30 Temperature Pulse Rate 85 85 Pulse Rate [ From Monitor] Respiratory 27 H 28 H Rate Blood Pressure 113/63 115/64 O2 Sat by Pulse 97 94 97 Oximetry 04/07/19 04/07/19 04/07/19 15:00 15:30 16:00 Temperature Pulse Rate 85 85 87 Pulse Rate [ From Monitor] Respiratory 40 H 37 H 26 H Rate Blood Pressure 113/65 115/67 118/67 O2 Sat by Pulse 98 98 99 Oximetry 04/07/19 16:30 Temperature Pulse Rate 85 Pulse Rate [ From Monitor] Respiratory 24 Rate Blood Pressure 111/63 O2 Sat by Pulse 97 Oximetry Constitutional: no acute distress, other (middle aged morbidly obese CM, normocephalic with incresed respiratory effort on MVS) Eyes: icteric ENT: oropharynx moist, other (ETT 23-24 cm PEDRO, ulcers over his upper lip) Neck: supple, no lymphadenopathy, no JVD, other (large neck circumference) Effort: mildly labored Ascultation: Bilateral: diminished breath sounds, rales Percussion: Bilateral: not dull Cardiovascular: regular rate and rhythm, other ( S1,S2) Gastrointestinal: normoactive bowel sounds, soft, non-tender Integumentary: normal, other (blisters with some weeping over the extremities) Extremities: no cyanosis, pink and warm, pulses normal, no ischemia or petechiae Neurologic: non-focal exam (grossly), pupils equal and round, other (obeyed simple commands when SAT was done) Psychiatric: other (sedated at this time) CBC and BMP: 04/07/19 05:40 04/07/19 05:40 ABG, PT/INR, D-dimer: ABG POC ABG pH 7.401 (7.35-7.45) 04/07/19 12:57 ABG pH 7.388 pH Units (7.350-7.450) 04/06/19 05:20 POC ABG pCO2 41.5 (35-45) 04/07/19 12:57 ABG pCO2 38.5 mm Hg 04/06/19 05:20 POC ABG pO2 107 (80-105) H 04/07/19 12:57 ABG pO2 104.0 mm Hg (80.0-90.0) H 04/06/19 05:20 POC ABG HCO3 25.7 (22-26 mml/L) 04/07/19 12:57 POC ABG Total CO2 27 (23-27mmol/L) 04/07/19 12:57 POC ABG O2 Sat 98 04/07/19 12:57 ABG O2 Saturation 97.8 % (95.0-99.0) 04/06/19 05:20 PT/INR, D-dimer PT 15.3 Sec. (12.2-14.9) H 03/29/19 11:48 INR 1.24 (0.87-1.13) H 03/29/19 11:48 D-Dimer 4845.98 ng/mlDDU (0-234) H 03/28/19 12:00 Abnormal lab findings: Abnormal Labs 03/16/19 03/16/19 03/16/19 15:32 16:03 16:05 WBC 27.0 H RBC 5.55 H Hgb 15.7 H Hct 47.1 H RDW Plt Count 75 L Lymph % (Auto) [place] % (Auto) Lymph # Seg Neutrophils % Seg Neuts % (Manual) 85.0 H Lymphocytes % (Manual) 2.0 L Monocytes % (Manual) Nucleated RBC % Seg Neutrophils # Seg Neutrophils # Man 23.0 H Lymphocytes # (Manual) 0.5 L Monocytes # (Manual) PT INR D-Dimer Heparin Anti-Xa Level POC ABG pH ABG pH POC ABG pCO2 POC ABG pO2 ABG pO2 ABG HCO3 ABG O2 Saturation ABG Base Excess ABG Hemoglobin Oxyhemoglobin Sodium 127 L Potassium Chloride 87.8 L Carbon Dioxide 17 L BUN 49 H Creatinine 5.8 H Glucose 150 H POC Glucose 118 H Lactic Acid Calcium 6.6 L Ionized Calcium Phosphorus Magnesium 1.10 L Iron TIBC Ferritin Total Bilirubin Direct Bilirubin AST ALT Alkaline Phosphatase Total Creatine Kinase 85592 H CK-MB (CK-2) Troponin T C-Reactive Protein Total Protein Albumin Triglycerides LDL Cholesterol Direct HDL Cholesterol Free T4 PTH Intact Urine WBC (Auto) Urine Creatinine Salicylates Acetaminophen Crossmatch 03/16/19 03/16/19 03/16/19 16:59 17:05 17:05 WBC RBC Hgb Hct RDW Plt Count Lymph % (Auto) [place] % (Auto) Lymph # Seg Neutrophils % Seg Neuts % (Manual) Lymphocytes % (Manual) Monocytes % (Manual) Nucleated RBC % Seg Neutrophils # Seg Neutrophils # Man Lymphocytes # (Manual) Monocytes # (Manual) PT INR D-Dimer Heparin Anti-Xa Level POC ABG pH 7.297 L ABG pH POC ABG pCO2 33.0 L POC ABG pO2 ABG pO2 ABG HCO3 ABG O2 Saturation ABG Base Excess ABG Hemoglobin Oxyhemoglobin Sodium Potassium Chloride Carbon Dioxide BUN Creatinine Glucose POC Glucose Lactic Acid Calcium Ionized Calcium Phosphorus Magnesium Iron TIBC Ferritin Total Bilirubin Direct Bilirubin AST ALT Alkaline Phosphatase Total Creatine Kinase 37577 H CK-MB (CK-2) 83.1 H Troponin T C-Reactive Protein Total Protein Albumin Triglycerides LDL Cholesterol Direct HDL Cholesterol Free T4 0.72 L PTH Intact Urine WBC (Auto) Urine Creatinine Salicylates Acetaminophen Crossmatch 03/16/19 03/16/19 03/16/19 17:05 17:05 17:05 WBC RBC Hgb Hct RDW Plt Count Lymph % (Auto) [place] % (Auto) Lymph # Seg Neutrophils % Seg Neuts % (Manual) Lymphocytes % (Manual) Monocytes % (Manual) Nucleated RBC % Seg Neutrophils # Seg Neutrophils # Man Lymphocytes # (Manual) Monocytes # (Manual) PT INR D-Dimer Heparin Anti-Xa Level POC ABG pH ABG pH POC ABG pCO2 POC ABG pO2 ABG pO2 ABG HCO3 ABG O2 Saturation ABG Base Excess ABG Hemoglobin Oxyhemoglobin Sodium Potassium Chloride Carbon Dioxide BUN Creatinine Glucose POC Glucose Lactic Acid 5.10 H* Calcium Ionized Calcium Phosphorus Magnesium Iron TIBC Ferritin Total Bilirubin Direct Bilirubin AST ALT Alkaline Phosphatase Total Creatine Kinase CK-MB (CK-2) Troponin T C-Reactive Protein Total Protein Albumin Triglycerides LDL Cholesterol Direct HDL Cholesterol Free T4 PTH Intact Urine WBC (Auto) Urine Creatinine Salicylates < 0.3 L Acetaminophen < 5.0 L Crossmatch 03/16/19 03/16/19 03/16/19 17:05 17:05 20:35 WBC RBC Hgb Hct RDW Plt Count Lymph % (Auto) [place] % (Auto) Lymph # Seg Neutrophils % Seg Neuts % (Manual) Lymphocytes % (Manual) Monocytes % (Manual) Nucleated RBC % Seg Neutrophils # Seg Neutrophils # Man Lymphocytes # (Manual) Monocytes # (Manual) PT 15.9 H INR 1.30 H D-Dimer Heparin Anti-Xa Level POC ABG pH ABG pH POC ABG pCO2 POC ABG pO2 ABG pO2 ABG HCO3 ABG O2 Saturation ABG Base Excess ABG Hemoglobin Oxyhemoglobin Sodium Potassium Chloride Carbon Dioxide BUN Creatinine Glucose POC Glucose Lactic Acid 3.30 H* Calcium Ionized Calcium Phosphorus Magnesium Iron TIBC Ferritin Total Bilirubin 6.20 H Direct Bilirubin 5.9 H AST 800 H ALT 120 H Alkaline Phosphatase Total Creatine Kinase CK-MB (CK-2) Troponin T C-Reactive Protein Total Protein 4.4 L Albumin 2.4 L Triglycerides LDL Cholesterol Direct HDL Cholesterol Free T4 PTH Intact Urine WBC (Auto) Urine Creatinine Salicylates Acetaminophen Crossmatch 03/16/19 03/16/19 03/16/19 21:45 22:32 Unknown WBC RBC Hgb Hct RDW Plt Count Lymph % (Auto) [place] % (Auto) Lymph # Seg Neutrophils % Seg Neuts % (Manual) Lymphocytes % (Manual) Monocytes % (Manual) Nucleated RBC % Seg Neutrophils # Seg Neutrophils # Man Lymphocytes # (Manual) Monocytes # (Manual) PT INR D-Dimer Heparin Anti-Xa Level POC ABG pH ABG pH POC ABG pCO2 POC ABG pO2 ABG pO2 ABG HCO3 ABG O2 Saturation ABG Base Excess ABG Hemoglobin Oxyhemoglobin Sodium Potassium Chloride Carbon Dioxide BUN Creatinine Glucose POC Glucose Lactic Acid 3.30 H* 3.00 H* Calcium Ionized Calcium Phosphorus Magnesium Iron TIBC Ferritin Total Bilirubin Direct Bilirubin AST ALT Alkaline Phosphatase Total Creatine Kinase CK-MB (CK-2) Troponin T 0.047 H D C-Reactive Protein Total Protein Albumin Triglycerides 395 H LDL Cholesterol Direct 10 L HDL Cholesterol 7 L Free T4 PTH Intact Urine WBC (Auto) Urine Creatinine Salicylates Acetaminophen Crossmatch 03/17/19 03/17/19 03/17/19 03:45 03:45 03:45 WBC RBC Hgb Hct RDW Plt Count Lymph % (Auto) [place] % (Auto) Lymph # Seg Neutrophils % Seg Neuts % (Manual) Lymphocytes % (Manual) Monocytes % (Manual) Nucleated RBC % Seg Neutrophils # Seg Neutrophils # Man Lymphocytes # (Manual) Monocytes # (Manual) PT INR D-Dimer Heparin Anti-Xa Level POC ABG pH ABG pH POC ABG pCO2 POC ABG pO2 ABG pO2 ABG HCO3 ABG O2 Saturation ABG Base Excess ABG Hemoglobin Oxyhemoglobin Sodium 131 L Potassium Chloride 88.9 L Carbon Dioxide BUN 53 H Creatinine 7.1 H Glucose POC Glucose Lactic Acid 4.10 H* Calcium 5.4 L* D Ionized Calcium Phosphorus 7.30 H Magnesium 1.60 L Iron TIBC Ferritin Total Bilirubin 5.90 H Direct Bilirubin AST 801 H ALT 109 H Alkaline Phosphatase Total Creatine Kinase 14683 H 74534 H CK-MB (CK-2) 41.5 H Troponin T 0.054 H C-Reactive Protein Total Protein 4.5 L Albumin 2.0 L Triglycerides LDL Cholesterol Direct HDL Cholesterol Free T4 PTH Intact Urine WBC (Auto) Urine Creatinine Salicylates Acetaminophen Crossmatch 03/17/19 03/17/19 03/17/19 05:47 07:16 07:16 WBC RBC Hgb Hct RDW Plt Count Lymph % (Auto) [place] % (Auto) Lymph # Seg Neutrophils % Seg Neuts % (Manual) Lymphocytes % (Manual) Monocytes % (Manual) Nucleated RBC % Seg Neutrophils # Seg Neutrophils # Man Lymphocytes # (Manual) Monocytes # (Manual) PT INR D-Dimer Heparin Anti-Xa Level POC ABG pH 7.193 L ABG pH POC ABG pCO2 45.2 H POC ABG pO2 65 L ABG pO2 ABG HCO3 ABG O2 Saturation ABG Base Excess ABG Hemoglobin Oxyhemoglobin Sodium Potassium Chloride Carbon Dioxide BUN Creatinine Glucose POC Glucose Lactic Acid 5.50 H* Calcium Ionized Calcium Phosphorus Magnesium Iron TIBC Ferritin Total Bilirubin Direct Bilirubin AST ALT Alkaline Phosphatase Total Creatine Kinase 14918 H CK-MB (CK-2) 54.3 H Troponin T 0.058 H C-Reactive Protein Total Protein Albumin Triglycerides LDL Cholesterol Direct HDL Cholesterol Free T4 PTH Intact Urine WBC (Auto) Urine Creatinine Salicylates Acetaminophen Crossmatch 03/17/19 03/17/19 03/17/19 11:52 12:51 13:01 WBC RBC Hgb Hct RDW Plt Count Lymph % (Auto) [place] % (Auto) Lymph # Seg Neutrophils % Seg Neuts % (Manual) Lymphocytes % (Manual) Monocytes % (Manual) Nucleated RBC % Seg Neutrophils # Seg Neutrophils # Man Lymphocytes # (Manual) Monocytes # (Manual) PT INR D-Dimer Heparin Anti-Xa Level POC ABG pH 7.154 L ABG pH POC ABG pCO2 34.3 L POC ABG pO2 73 L ABG pO2 ABG HCO3 ABG O2 Saturation ABG Base Excess ABG Hemoglobin Oxyhemoglobin Sodium Potassium Chloride Carbon Dioxide BUN Creatinine Glucose POC Glucose 60 L Lactic Acid 8.20 H* Calcium Ionized Calcium Phosphorus Magnesium Iron TIBC Ferritin Total Bilirubin Direct Bilirubin AST ALT Alkaline Phosphatase Total Creatine Kinase CK-MB (CK-2) Troponin T C-Reactive Protein Total Protein Albumin Triglycerides LDL Cholesterol Direct HDL Cholesterol Free T4 PTH Intact Urine WBC (Auto) Urine Creatinine Salicylates Acetaminophen Crossmatch 03/17/19 03/17/19 03/17/19 14:37 14:37 14:37 WBC 29.3 H RBC Hgb Hct RDW 15.8 H Plt Count 45 L Lymph % (Auto) [place] % (Auto) Lymph # Seg Neutrophils % Seg Neuts % (Manual) 81.0 H Lymphocytes % (Manual) 1.0 L Monocytes % (Manual) 15.0 H Nucleated RBC % Seg Neutrophils # Seg Neutrophils # Man 23.7 H Lymphocytes # (Manual) 0.3 L Monocytes # (Manual) 4.4 H PT INR D-Dimer Heparin Anti-Xa Level POC ABG pH ABG pH POC ABG pCO2 POC ABG pO2 ABG pO2 ABG HCO3 ABG O2 Saturation ABG Base Excess ABG Hemoglobin Oxyhemoglobin Sodium Potassium Chloride Carbon Dioxide BUN Creatinine Glucose POC Glucose Lactic Acid 4.90 H* Calcium Ionized Calcium Phosphorus Magnesium Iron TIBC Ferritin Total Bilirubin Direct Bilirubin AST ALT Alkaline Phosphatase Total Creatine Kinase CK-MB (CK-2) Troponin T C-Reactive Protein 24.90 H Total Protein Albumin Triglycerides LDL Cholesterol Direct HDL Cholesterol Free T4 PTH Intact Urine WBC (Auto) Urine Creatinine Salicylates Acetaminophen Crossmatch 03/17/19 03/17/19 03/17/19 16:05 16:05 17:02 WBC RBC Hgb Hct RDW Plt Count Lymph % (Auto) [place] % (Auto) Lymph # Seg Neutrophils % Seg Neuts % (Manual) Lymphocytes % (Manual) Monocytes % (Manual) Nucleated RBC % Seg Neutrophils # Seg Neutrophils # Man Lymphocytes # (Manual) Monocytes # (Manual) PT INR D-Dimer Heparin Anti-Xa Level POC ABG pH 7.183 L ABG pH POC ABG pCO2 POC ABG pO2 65 L ABG pO2 ABG HCO3 ABG O2 Saturation ABG Base Excess ABG Hemoglobin Oxyhemoglobin Sodium Potassium Chloride Carbon Dioxide BUN Creatinine Glucose POC Glucose Lactic Acid Calcium Ionized Calcium Phosphorus Magnesium Iron TIBC Ferritin Total Bilirubin Direct Bilirubin AST ALT Alkaline Phosphatase Total Creatine Kinase CK-MB (CK-2) Troponin T C-Reactive Protein Total Protein Albumin Triglycerides LDL Cholesterol Direct HDL Cholesterol Free T4 PTH Intact Urine WBC (Auto) 30.0 H Urine Creatinine 106.6 H Salicylates Acetaminophen Crossmatch 03/18/19 03/18/19 03/18/19 05:12 05:16 05:53 WBC RBC Hgb Hct RDW Plt Count Lymph % (Auto) [place] % (Auto) Lymph # Seg Neutrophils % Seg Neuts % (Manual) Lymphocytes % (Manual) Monocytes % (Manual) Nucleated RBC % Seg Neutrophils # Seg Neutrophils # Man Lymphocytes # (Manual) Monocytes # (Manual) PT INR D-Dimer Heparin Anti-Xa Level POC ABG pH 7.257 L ABG pH POC ABG pCO2 31.6 L POC ABG pO2 69 L ABG pO2 ABG HCO3 ABG O2 Saturation ABG Base Excess ABG Hemoglobin Oxyhemoglobin Sodium Potassium Chloride Carbon Dioxide BUN Creatinine Glucose POC Glucose 141 H Lactic Acid 5.00 H* Calcium Ionized Calcium Phosphorus Magnesium Iron TIBC Ferritin Total Bilirubin Direct Bilirubin AST ALT Alkaline Phosphatase Total Creatine Kinase CK-MB (CK-2) Troponin T C-Reactive Protein Total Protein Albumin Triglycerides LDL Cholesterol Direct HDL Cholesterol Free T4 PTH Intact Urine WBC (Auto) Urine Creatinine Salicylates Acetaminophen Crossmatch 03/18/19 03/18/19 03/18/19 06:57 08:40 08:40 WBC 31.7 H RBC Hgb Hct RDW 15.5 H Plt Count 35 L Lymph % (Auto) [place] % (Auto) Lymph # Seg Neutrophils % Seg Neuts % (Manual) Lymphocytes % (Manual) Monocytes % (Manual) Nucleated RBC % Seg Neutrophils # Seg Neutrophils # Man Lymphocytes # (Manual) Monocytes # (Manual) PT INR D-Dimer Heparin Anti-Xa Level POC ABG pH ABG pH POC ABG pCO2 POC ABG pO2 ABG pO2 ABG HCO3 ABG O2 Saturation ABG Base Excess ABG Hemoglobin Oxyhemoglobin Sodium 132 L Potassium 5.5 H D Chloride 88.5 L Carbon Dioxide 18 L BUN 71 H Creatinine 8.1 H Glucose 205 H POC Glucose Lactic Acid 5.00 H* Calcium 4.1 L* D Ionized Calcium Phosphorus Magnesium 2.40 H Iron TIBC Ferritin Total Bilirubin 7.50 H Direct Bilirubin AST 1088 H ALT 159 H Alkaline Phosphatase 190 H Total Creatine Kinase 436150 H CK-MB (CK-2) Troponin T C-Reactive Protein Total Protein 4.7 L Albumin 1.8 L Triglycerides LDL Cholesterol Direct HDL Cholesterol Free T4 PTH Intact Urine WBC (Auto) Urine Creatinine Salicylates Acetaminophen Crossmatch 03/18/19 03/18/19 03/18/19 12:33 12:50 13:19 WBC RBC Hgb Hct RDW Plt Count Lymph % (Auto) [place] % (Auto) Lymph # Seg Neutrophils % Seg Neuts % (Manual) Lymphocytes % (Manual) Monocytes % (Manual) Nucleated RBC % Seg Neutrophils # Seg Neutrophils # Man Lymphocytes # (Manual) Monocytes # (Manual) PT INR D-Dimer Heparin Anti-Xa Level POC ABG pH 7.282 L ABG pH POC ABG pCO2 POC ABG pO2 67 L ABG pO2 ABG HCO3 ABG O2 Saturation ABG Base Excess ABG Hemoglobin Oxyhemoglobin Sodium Potassium Chloride Carbon Dioxide BUN Creatinine Glucose POC Glucose 129 H Lactic Acid 3.30 H* Calcium Ionized Calcium Phosphorus Magnesium Iron TIBC Ferritin Total Bilirubin Direct Bilirubin AST ALT Alkaline Phosphatase Total Creatine Kinase CK-MB (CK-2) Troponin T C-Reactive Protein Total Protein Albumin Triglycerides LDL Cholesterol Direct HDL Cholesterol Free T4 PTH Intact Urine WBC (Auto) Urine Creatinine Salicylates Acetaminophen Crossmatch 03/18/19 03/18/19 03/18/19 13:19 16:50 18:11 WBC RBC Hgb Hct RDW Plt Count Lymph % (Auto) [place] % (Auto) Lymph # Seg Neutrophils % Seg Neuts % (Manual) Lymphocytes % (Manual) Monocytes % (Manual) Nucleated RBC % Seg Neutrophils # Seg Neutrophils # Man Lymphocytes # (Manual) Monocytes # (Manual) PT INR D-Dimer Heparin Anti-Xa Level POC ABG pH ABG pH POC ABG pCO2 POC ABG pO2 59 L ABG pO2 ABG HCO3 ABG O2 Saturation ABG Base Excess ABG Hemoglobin Oxyhemoglobin Sodium Potassium Chloride Carbon Dioxide BUN Creatinine Glucose POC Glucose 151 H Lactic Acid Calcium 4.2 L* Ionized Calcium Phosphorus Magnesium Iron TIBC Ferritin Total Bilirubin Direct Bilirubin AST ALT Alkaline Phosphatase Total Creatine Kinase 343348 H CK-MB (CK-2) Troponin T C-Reactive Protein Total Protein Albumin Triglycerides LDL Cholesterol Direct HDL Cholesterol Free T4 PTH Intact Urine WBC (Auto) Urine Creatinine Salicylates Acetaminophen Crossmatch 03/18/19 03/18/19 03/19/19 18:20 23:39 01:42 WBC RBC Hgb Hct RDW Plt Count Lymph % (Auto) [place] % (Auto) Lymph # Seg Neutrophils % Seg Neuts % (Manual) Lymphocytes % (Manual) Monocytes % (Manual) Nucleated RBC % Seg Neutrophils # Seg Neutrophils # Man Lymphocytes # (Manual) Monocytes # (Manual) PT INR D-Dimer Heparin Anti-Xa Level POC ABG pH 7.345 L ABG pH 7.285 L POC ABG pCO2 POC ABG pO2 59 L ABG pO2 44.0 L ABG HCO3 ABG O2 Saturation 70.9 L ABG Base Excess -5.7 L ABG Hemoglobin 11.9 L Oxyhemoglobin 69.6 L Sodium Potassium Chloride Carbon Dioxide BUN Creatinine Glucose POC Glucose 152 H Lactic Acid Calcium Ionized Calcium Phosphorus Magnesium Iron TIBC Ferritin Total Bilirubin Direct Bilirubin AST ALT Alkaline Phosphatase Total Creatine Kinase CK-MB (CK-2) Troponin T C-Reactive Protein Total Protein Albumin Triglycerides LDL Cholesterol Direct HDL Cholesterol Free T4 PTH Intact Urine WBC (Auto) Urine Creatinine Salicylates Acetaminophen Crossmatch 03/19/19 03/19/19 03/19/19 04:00 04:00 05:35 WBC 36.5 H RBC Hgb Hct RDW 15.8 H Plt Count 35 L Lymph % (Auto) [place] % (Auto) Lymph # Seg Neutrophils % Seg Neuts % (Manual) Lymphocytes % (Manual) Monocytes % (Manual) Nucleated RBC % Seg Neutrophils # Seg Neutrophils # Man Lymphocytes # (Manual) Monocytes # (Manual) PT INR D-Dimer Heparin Anti-Xa Level POC ABG pH ABG pH 7.265 L POC ABG pCO2 POC ABG pO2 ABG pO2 35.4 L* ABG HCO3 ABG O2 Saturation 54.4 L ABG Base Excess -6.7 L ABG Hemoglobin 12.9 L Oxyhemoglobin 53.4 L Sodium 132 L Potassium 5.7 H Chloride 89.8 L Carbon Dioxide 19 L BUN 62 H Creatinine 6.4 H Glucose 151 H POC Glucose Lactic Acid Calcium 5.2 L* D Ionized Calcium Phosphorus Magnesium Iron TIBC Ferritin Total Bilirubin 7.80 H Direct Bilirubin AST 682 H ALT 130 H Alkaline Phosphatase 167 H Total Creatine Kinase CK-MB (CK-2) Troponin T C-Reactive Protein Total Protein 4.8 L Albumin 2.3 L Triglycerides LDL Cholesterol Direct HDL Cholesterol Free T4 PTH Intact Urine WBC (Auto) Urine Creatinine Salicylates Acetaminophen Crossmatch 03/19/19 03/19/19 03/19/19 05:49 09:16 09:50 WBC RBC Hgb Hct RDW Plt Count Lymph % (Auto) [place] % (Auto) Lymph # Seg Neutrophils % Seg Neuts % (Manual) Lymphocytes % (Manual) Monocytes % (Manual) Nucleated RBC % Seg Neutrophils # Seg Neutrophils # Man Lymphocytes # (Manual) Monocytes # (Manual) PT INR D-Dimer Heparin Anti-Xa Level POC ABG pH 7.222 L ABG pH POC ABG pCO2 56.6 H POC ABG pO2 ABG pO2 ABG HCO3 ABG O2 Saturation ABG Base Excess ABG Hemoglobin Oxyhemoglobin Sodium Potassium Chloride Carbon Dioxide BUN Creatinine Glucose POC Glucose 154 H Lactic Acid 2.70 H* Calcium Ionized Calcium Phosphorus Magnesium Iron TIBC Ferritin Total Bilirubin Direct Bilirubin AST ALT Alkaline Phosphatase Total Creatine Kinase CK-MB (CK-2) Troponin T C-Reactive Protein Total Protein Albumin Triglycerides LDL Cholesterol Direct HDL Cholesterol Free T4 PTH Intact Urine WBC (Auto) Urine Creatinine Salicylates Acetaminophen Crossmatch 03/19/19 03/19/19 03/19/19 09:50 11:28 17:58 WBC RBC Hgb Hct RDW Plt Count Lymph % (Auto) [place] % (Auto) Lymph # Seg Neutrophils % Seg Neuts % (Manual) Lymphocytes % (Manual) Monocytes % (Manual) Nucleated RBC % Seg Neutrophils # Seg Neutrophils # Man Lymphocytes # (Manual) Monocytes # (Manual) PT INR D-Dimer Heparin Anti-Xa Level POC ABG pH 7.250 L ABG pH POC ABG pCO2 52.6 H POC ABG pO2 ABG pO2 ABG HCO3 ABG O2 Saturation ABG Base Excess ABG Hemoglobin Oxyhemoglobin Sodium Potassium Chloride Carbon Dioxide BUN Creatinine Glucose POC Glucose 160 H Lactic Acid Calcium Ionized Calcium Phosphorus Magnesium Iron TIBC Ferritin Total Bilirubin Direct Bilirubin AST ALT Alkaline Phosphatase Total Creatine Kinase 68248 H CK-MB (CK-2) Troponin T C-Reactive Protein Total Protein Albumin Triglycerides LDL Cholesterol Direct HDL Cholesterol Free T4 PTH Intact Urine WBC (Auto) Urine Creatinine Salicylates Acetaminophen Crossmatch 03/19/19 03/19/19 03/20/19 19:48 21:03 02:16 WBC RBC Hgb Hct RDW Plt Count Lymph % (Auto) [place] % (Auto) Lymph # Seg Neutrophils % Seg Neuts % (Manual) Lymphocytes % (Manual) Monocytes % (Manual) Nucleated RBC % Seg Neutrophils # Seg Neutrophils # Man Lymphocytes # (Manual) Monocytes # (Manual) PT INR D-Dimer Heparin Anti-Xa Level POC ABG pH 7.279 L ABG pH POC ABG pCO2 50.3 H POC ABG pO2 129 H ABG pO2 ABG HCO3 ABG O2 Saturation ABG Base Excess ABG Hemoglobin Oxyhemoglobin Sodium Potassium Chloride Carbon Dioxide BUN Creatinine Glucose POC Glucose 119 H 119 H Lactic Acid Calcium Ionized Calcium Phosphorus Magnesium Iron TIBC Ferritin Total Bilirubin Direct Bilirubin AST ALT Alkaline Phosphatase Total Creatine Kinase CK-MB (CK-2) Troponin T C-Reactive Protein Total Protein Albumin Triglycerides LDL Cholesterol Direct HDL Cholesterol Free T4 PTH Intact Urine WBC (Auto) Urine Creatinine Salicylates Acetaminophen Crossmatch 03/20/19 03/20/19 03/20/19 04:23 05:05 09:30 WBC 36.3 H RBC Hgb Hct RDW 15.5 H Plt Count 29 L Lymph % (Auto) [place] % (Auto) Lymph # Seg Neutrophils % Seg Neuts % (Manual) Lymphocytes % (Manual) Monocytes % (Manual) Nucleated RBC % Seg Neutrophils # Seg Neutrophils # Man Lymphocytes # (Manual) Monocytes # (Manual) PT INR D-Dimer Heparin Anti-Xa Level POC ABG pH ABG pH POC ABG pCO2 POC ABG pO2 280 H ABG pO2 ABG HCO3 ABG O2 Saturation ABG Base Excess ABG Hemoglobin Oxyhemoglobin Sodium Potassium Chloride Carbon Dioxide BUN Creatinine Glucose POC Glucose 115 H Lactic Acid Calcium Ionized Calcium Phosphorus Magnesium Iron TIBC Ferritin Total Bilirubin Direct Bilirubin AST ALT Alkaline Phosphatase Total Creatine Kinase CK-MB (CK-2) Troponin T C-Reactive Protein Total Protein Albumin Triglycerides LDL Cholesterol Direct HDL Cholesterol Free T4 PTH Intact Urine WBC (Auto) Urine Creatinine Salicylates Acetaminophen Crossmatch 03/20/19 03/20/19 03/20/19 09:30 09:30 11:34 WBC RBC Hgb Hct RDW Plt Count Lymph % (Auto) [place] % (Auto) Lymph # Seg Neutrophils % Seg Neuts % (Manual) Lymphocytes % (Manual) Monocytes % (Manual) Nucleated RBC % Seg Neutrophils # Seg Neutrophils # Man Lymphocytes # (Manual) Monocytes # (Manual) PT INR D-Dimer Heparin Anti-Xa Level POC ABG pH ABG pH POC ABG pCO2 POC ABG pO2 ABG pO2 ABG HCO3 ABG O2 Saturation ABG Base Excess ABG Hemoglobin Oxyhemoglobin Sodium 131 L Potassium Chloride 92.3 L Carbon Dioxide 20 L BUN 68 H Creatinine 6.1 H Glucose 164 H POC Glucose 141 H Lactic Acid Calcium 5.3 L* Ionized Calcium Phosphorus Magnesium Iron TIBC Ferritin Total Bilirubin 9.50 H Direct Bilirubin AST 381 H ALT 116 H Alkaline Phosphatase 255 H Total Creatine Kinase 20324 H CK-MB (CK-2) Troponin T C-Reactive Protein Total Protein 5.1 L Albumin 2.3 L Triglycerides LDL Cholesterol Direct HDL Cholesterol Free T4 PTH Intact Urine WBC (Auto) Urine Creatinine Salicylates Acetaminophen Crossmatch 03/20/19 03/20/19 03/20/19 14:41 14:45 18:50 WBC RBC Hgb Hct RDW Plt Count Lymph % (Auto) [place] % (Auto) Lymph # Seg Neutrophils % Seg Neuts % (Manual) Lymphocytes % (Manual) Monocytes % (Manual) Nucleated RBC % Seg Neutrophils # Seg Neutrophils # Man Lymphocytes # (Manual) Monocytes # (Manual) PT INR D-Dimer Heparin Anti-Xa Level POC ABG pH ABG pH POC ABG pCO2 POC ABG pO2 ABG pO2 ABG HCO3 ABG O2 Saturation ABG Base Excess ABG Hemoglobin Oxyhemoglobin Sodium Potassium Chloride Carbon Dioxide BUN Creatinine Glucose POC Glucose 117 H Lactic Acid 2.90 H* Calcium Ionized Calcium Phosphorus Magnesium Iron TIBC Ferritin Total Bilirubin Direct Bilirubin AST ALT Alkaline Phosphatase Total Creatine Kinase CK-MB (CK-2) Troponin T C-Reactive Protein 13.30 H Total Protein Albumin Triglycerides LDL Cholesterol Direct HDL Cholesterol Free T4 PTH Intact Urine WBC (Auto) Urine Creatinine Salicylates Acetaminophen Crossmatch 03/20/19 03/21/19 03/21/19 21:55 04:26 04:26 WBC 37.8 H RBC Hgb Hct RDW 15.4 H Plt Count 36 L Lymph % (Auto) [place] % (Auto) Lymph # Seg Neutrophils % Seg Neuts % (Manual) 93.0 H Lymphocytes % (Manual) 3.0 L Monocytes % (Manual) Nucleated RBC % 1.0 H Seg Neutrophils # 34.6 H Seg Neutrophils # Man 35.2 H Lymphocytes # (Manual) 1.1 L Monocytes # (Manual) PT INR D-Dimer Heparin Anti-Xa Level POC ABG pH ABG pH POC ABG pCO2 POC ABG pO2 ABG pO2 ABG HCO3 ABG O2 Saturation ABG Base Excess ABG Hemoglobin Oxyhemoglobin Sodium 131 L Potassium Chloride 90.7 L Carbon Dioxide 21 L BUN 69 H Creatinine 5.7 H Glucose 170 H POC Glucose 128 H Lactic Acid Calcium 6.1 L D Ionized Calcium Phosphorus Magnesium Iron TIBC Ferritin Total Bilirubin 9.50 H Direct Bilirubin AST 308 H ALT 124 H Alkaline Phosphatase 327 H Total Creatine Kinase 70262 H CK-MB (CK-2) Troponin T C-Reactive Protein Total Protein 5.7 L Albumin 2.6 L Triglycerides LDL Cholesterol Direct HDL Cholesterol Free T4 PTH Intact Urine WBC (Auto) Urine Creatinine Salicylates Acetaminophen Crossmatch 03/21/19 03/21/19 03/21/19 05:17 05:39 08:29 WBC RBC Hgb Hct RDW Plt Count Lymph % (Auto) [place] % (Auto) Lymph # Seg Neutrophils % Seg Neuts % (Manual) Lymphocytes % (Manual) Monocytes % (Manual) Nucleated RBC % Seg Neutrophils # Seg Neutrophils # Man Lymphocytes # (Manual) Monocytes # (Manual) PT INR D-Dimer Heparin Anti-Xa Level POC ABG pH ABG pH POC ABG pCO2 POC ABG pO2 209 H ABG pO2 ABG HCO3 ABG O2 Saturation ABG Base Excess ABG Hemoglobin Oxyhemoglobin Sodium Potassium Chloride Carbon Dioxide BUN Creatinine Glucose POC Glucose 145 H Lactic Acid Calcium Ionized Calcium Phosphorus Magnesium Iron TIBC Ferritin Total Bilirubin Direct Bilirubin AST ALT Alkaline Phosphatase Total Creatine Kinase 45128 H CK-MB (CK-2) Troponin T C-Reactive Protein Total Protein Albumin Triglycerides LDL Cholesterol Direct HDL Cholesterol Free T4 PTH Intact Urine WBC (Auto) Urine Creatinine Salicylates Acetaminophen Crossmatch 03/21/19 03/21/19 03/21/19 08:29 11:43 12:00 WBC RBC Hgb Hct RDW Plt Count Lymph % (Auto) [place] % (Auto) Lymph # Seg Neutrophils % Seg Neuts % (Manual) Lymphocytes % (Manual) Monocytes % (Manual) Nucleated RBC % Seg Neutrophils # Seg Neutrophils # Man Lymphocytes # (Manual) Monocytes # (Manual) PT INR D-Dimer Heparin Anti-Xa Level POC ABG pH ABG pH POC ABG pCO2 POC ABG pO2 ABG pO2 ABG HCO3 ABG O2 Saturation ABG Base Excess ABG Hemoglobin Oxyhemoglobin Sodium Potassium Chloride Carbon Dioxide BUN Creatinine Glucose POC Glucose 123 H Lactic Acid 2.60 H* 2.20 H* Calcium Ionized Calcium Phosphorus Magnesium Iron TIBC Ferritin Total Bilirubin Direct Bilirubin AST ALT Alkaline Phosphatase Total Creatine Kinase CK-MB (CK-2) Troponin T C-Reactive Protein Total Protein Albumin Triglycerides LDL Cholesterol Direct HDL Cholesterol Free T4 PTH Intact Urine WBC (Auto) Urine Creatinine Salicylates Acetaminophen Crossmatch 03/21/19 03/21/19 03/21/19 14:11 18:28 19:32 WBC RBC Hgb Hct RDW Plt Count Lymph % (Auto) [place] % (Auto) Lymph # Seg Neutrophils % Seg Neuts % (Manual) Lymphocytes % (Manual) Monocytes % (Manual) Nucleated RBC % Seg Neutrophils # Seg Neutrophils # Man Lymphocytes # (Manual) Monocytes # (Manual) PT INR D-Dimer Heparin Anti-Xa Level POC ABG pH 7.293 L ABG pH POC ABG pCO2 POC ABG pO2 ABG pO2 ABG HCO3 ABG O2 Saturation ABG Base Excess ABG Hemoglobin Oxyhemoglobin Sodium Potassium Chloride Carbon Dioxide BUN Creatinine Glucose POC Glucose 153 H Lactic Acid 2.10 H* Calcium Ionized Calcium Phosphorus Magnesium Iron TIBC Ferritin Total Bilirubin Direct Bilirubin AST ALT Alkaline Phosphatase Total Creatine Kinase CK-MB (CK-2) Troponin T C-Reactive Protein Total Protein Albumin Triglycerides LDL Cholesterol Direct HDL Cholesterol Free T4 PTH Intact Urine WBC (Auto) Urine Creatinine Salicylates Acetaminophen Crossmatch 03/21/19 03/22/19 03/22/19 23:38 05:08 05:51 WBC RBC Hgb Hct RDW Plt Count Lymph % (Auto) [place] % (Auto) Lymph # Seg Neutrophils % Seg Neuts % (Manual) Lymphocytes % (Manual) Monocytes % (Manual) Nucleated RBC % Seg Neutrophils # Seg Neutrophils # Man Lymphocytes # (Manual) Monocytes # (Manual) PT INR D-Dimer Heparin Anti-Xa Level POC ABG pH 7.283 L ABG pH POC ABG pCO2 POC ABG pO2 53 L ABG pO2 ABG HCO3 ABG O2 Saturation ABG Base Excess ABG Hemoglobin Oxyhemoglobin Sodium Potassium Chloride Carbon Dioxide BUN Creatinine Glucose POC Glucose 149 H 131 H Lactic Acid Calcium Ionized Calcium Phosphorus Magnesium Iron TIBC Ferritin Total Bilirubin Direct Bilirubin AST ALT Alkaline Phosphatase Total Creatine Kinase CK-MB (CK-2) Troponin T C-Reactive Protein Total Protein Albumin Triglycerides LDL Cholesterol Direct HDL Cholesterol Free T4 PTH Intact Urine WBC (Auto) Urine Creatinine Salicylates Acetaminophen Crossmatch 0903/22/19 03/22/19 08:00 08:00 18:19 WBC 36.7 H RBC Hgb 11.0 L Hct 33.5 L RDW 15.5 H Plt Count 43 L Lymph % (Auto) [place] % (Auto) Lymph # Seg Neutrophils % Seg Neuts % (Manual) 87.0 H Lymphocytes % (Manual) 7.0 L Monocytes % (Manual) Nucleated RBC % Seg Neutrophils # Seg Neutrophils # Man 31.9 H Lymphocytes # (Manual) Monocytes # (Manual) PT INR D-Dimer Heparin Anti-Xa Level POC ABG pH ABG pH POC ABG pCO2 46.4 H POC ABG pO2 108 H ABG pO2 ABG HCO3 ABG O2 Saturation ABG Base Excess ABG Hemoglobin Oxyhemoglobin Sodium 132 L Potassium 5.6 H Chloride 89.6 L Carbon Dioxide 20 L BUN 101 H Creatinine 7.4 H Glucose 124 H POC Glucose Lactic Acid Calcium 5.2 L* Ionized Calcium Phosphorus Magnesium Iron TIBC Ferritin Total Bilirubin 2.80 H Direct Bilirubin AST 119 H ALT 86 H Alkaline Phosphatase 245 H Total Creatine Kinase CK-MB (CK-2) Troponin T C-Reactive Protein Total Protein 5.6 L Albumin 2.5 L Triglycerides LDL Cholesterol Direct HDL Cholesterol Free T4 PTH Intact Urine WBC (Auto) Urine Creatinine Salicylates Acetaminophen Crossmatch 03/22/19 03/23/19 03/23/19 20:37 04:49 05:28 WBC 35.9 H RBC Hgb 10.8 L Hct 33.2 L RDW 15.5 H Plt Count 49 L Lymph % (Auto) [place] % (Auto) Lymph # Seg Neutrophils % Seg Neuts % (Manual) 81.0 H Lymphocytes % (Manual) 3.5 L Monocytes % (Manual) Nucleated RBC % Seg Neutrophils # Seg Neutrophils # Man 29.1 H Lymphocytes # (Manual) Monocytes # (Manual) 1.4 H PT INR D-Dimer Heparin Anti-Xa Level POC ABG pH 7.296 L ABG pH POC ABG pCO2 46.2 H POC ABG pO2 ABG pO2 ABG HCO3 ABG O2 Saturation ABG Base Excess ABG Hemoglobin Oxyhemoglobin Sodium 129 L Potassium 5.2 H Chloride 91.1 L Carbon Dioxide BUN 91 H Creatinine 6.6 H Glucose 190 H POC Glucose Lactic Acid Calcium 5.3 L* Ionized Calcium Phosphorus Magnesium Iron TIBC Ferritin Total Bilirubin 1.80 H Direct Bilirubin AST 80 H ALT 62 H Alkaline Phosphatase 209 H Total Creatine Kinase 9758 H CK-MB (CK-2) Troponin T C-Reactive Protein Total Protein 5.2 L Albumin 2.2 L Triglycerides LDL Cholesterol Direct HDL Cholesterol Free T4 PTH Intact Urine WBC (Auto) Urine Creatinine Salicylates Acetaminophen Crossmatch 03/23/19 03/23/19 03/23/19 05:28 05:31 11:33 WBC 29.7 H RBC 3.59 L Hgb 10.1 L Hct 31.1 L RDW 15.4 H Plt Count 47 L Lymph % (Auto) [place] % (Auto) Lymph # Seg Neutrophils % Seg Neuts % (Manual) 89.0 H Lymphocytes % (Manual) 6.0 L Monocytes % (Manual) Nucleated RBC % 1.0 H Seg Neutrophils # Seg Neutrophils # Man 26.4 H Lymphocytes # (Manual) Monocytes # (Manual) PT INR D-Dimer Heparin Anti-Xa Level POC ABG pH ABG pH POC ABG pCO2 POC ABG pO2 ABG pO2 ABG HCO3 ABG O2 Saturation ABG Base Excess ABG Hemoglobin Oxyhemoglobin Sodium Potassium Chloride Carbon Dioxide BUN Creatinine Glucose POC Glucose 122 H 113 H Lactic Acid Calcium Ionized Calcium Phosphorus Magnesium Iron TIBC Ferritin Total Bilirubin Direct Bilirubin AST ALT Alkaline Phosphatase Total Creatine Kinase CK-MB (CK-2) Troponin T C-Reactive Protein Total Protein Albumin Triglycerides LDL Cholesterol Direct HDL Cholesterol Free T4 PTH Intact Urine WBC (Auto) Urine Creatinine Salicylates Acetaminophen Crossmatch 03/23/19 03/24/19 03/24/19 17:47 00:00 04:50 WBC 35.0 H RBC Hgb 10.4 L Hct 32.4 L RDW Plt Count 60 L Lymph % (Auto) [place] % (Auto) Lymph # Seg Neutrophils % Seg Neuts % (Manual) 93.0 H Lymphocytes % (Manual) 5.0 L Monocytes % (Manual) Nucleated RBC % 7.0 H Seg Neutrophils # Seg Neutrophils # Man 32.6 H Lymphocytes # (Manual) Monocytes # (Manual) PT INR D-Dimer Heparin Anti-Xa Level POC ABG pH ABG pH POC ABG pCO2 POC ABG pO2 ABG pO2 ABG HCO3 ABG O2 Saturation ABG Base Excess ABG Hemoglobin Oxyhemoglobin Sodium Potassium Chloride Carbon Dioxide BUN Creatinine Glucose POC Glucose 111 H 108 H Lactic Acid Calcium Ionized Calcium Phosphorus Magnesium Iron TIBC Ferritin Total Bilirubin Direct Bilirubin AST ALT Alkaline Phosphatase Total Creatine Kinase CK-MB (CK-2) Troponin T C-Reactive Protein Total Protein Albumin Triglycerides LDL Cholesterol Direct HDL Cholesterol Free T4 PTH Intact Urine WBC (Auto) Urine Creatinine Salicylates Acetaminophen Crossmatch 03/24/19 03/24/19 03/24/19 04:50 05:06 12:55 WBC RBC Hgb Hct RDW Plt Count Lymph % (Auto) [place] % (Auto) Lymph # Seg Neutrophils % Seg Neuts % (Manual) Lymphocytes % (Manual) Monocytes % (Manual) Nucleated RBC % Seg Neutrophils # Seg Neutrophils # Man Lymphocytes # (Manual) Monocytes # (Manual) PT INR D-Dimer Heparin Anti-Xa Level POC ABG pH ABG pH POC ABG pCO2 POC ABG pO2 ABG pO2 ABG HCO3 ABG O2 Saturation ABG Base Excess ABG Hemoglobin Oxyhemoglobin Sodium 134 L Potassium 5.1 H Chloride 95.3 L Carbon Dioxide 21 L BUN 85 H Creatinine 6.4 H Glucose 109 H POC Glucose 112 H 110 H Lactic Acid Calcium 5.8 L* Ionized Calcium Phosphorus Magnesium Iron TIBC Ferritin Total Bilirubin Direct Bilirubin AST ALT Alkaline Phosphatase Total Creatine Kinase 5747 H CK-MB (CK-2) Troponin T C-Reactive Protein Total Protein Albumin Triglycerides LDL Cholesterol Direct HDL Cholesterol Free T4 PTH Intact Urine WBC (Auto) Urine Creatinine Salicylates Acetaminophen Crossmatch 03/24/19 03/25/19 03/25/19 23:29 05:00 05:00 WBC RBC Hgb Hct RDW Plt Count Lymph % (Auto) [place] % (Auto) Lymph # Seg Neutrophils % Seg Neuts % (Manual) Lymphocytes % (Manual) Monocytes % (Manual) Nucleated RBC % Seg Neutrophils # Seg Neutrophils # Man Lymphocytes # (Manual) Monocytes # (Manual) PT INR D-Dimer Heparin Anti-Xa Level POC ABG pH ABG pH POC ABG pCO2 POC ABG pO2 ABG pO2 ABG HCO3 ABG O2 Saturation ABG Base Excess ABG Hemoglobin Oxyhemoglobin Sodium 133 L Potassium Chloride 94.0 L Carbon Dioxide 21 L BUN 81 H Creatinine 6.4 H Glucose POC Glucose 109 H Lactic Acid Calcium 5.5 L* Ionized Calcium Phosphorus Magnesium Iron TIBC Ferritin Total Bilirubin Direct Bilirubin AST 80 H ALT Alkaline Phosphatase 202 H Total Creatine Kinase 3589 H CK-MB (CK-2) Troponin T C-Reactive Protein Total Protein 5.3 L Albumin 2.4 L Triglycerides LDL Cholesterol Direct HDL Cholesterol Free T4 PTH Intact 329.9 H Urine WBC (Auto) Urine Creatinine Salicylates Acetaminophen Crossmatch 03/25/19 03/25/19 03/26/19 05:00 06:30 04:30 WBC 23.3 H RBC 3.61 L Hgb 10.2 L Hct 31.2 L RDW Plt Count 57 L Lymph % (Auto) [place] % (Auto) Lymph # Seg Neutrophils % Seg Neuts % (Manual) 92.0 H Lymphocytes % (Manual) 6.0 L Monocytes % (Manual) Nucleated RBC % Seg Neutrophils # Seg Neutrophils # Man 21.4 H Lymphocytes # (Manual) Monocytes # (Manual) PT INR D-Dimer Heparin Anti-Xa Level POC ABG pH ABG pH 7.326 L POC ABG pCO2 POC ABG pO2 ABG pO2 109.5 H 137.4 H ABG HCO3 18.8 L 18.6 L ABG O2 Saturation ABG Base Excess -4.4 L -6.8 L ABG Hemoglobin 10.1 L 9.9 L Oxyhemoglobin Sodium Potassium Chloride Carbon Dioxide BUN Creatinine Glucose POC Glucose Lactic Acid Calcium Ionized Calcium Phosphorus Magnesium Iron TIBC Ferritin Total Bilirubin Direct Bilirubin AST ALT Alkaline Phosphatase Total Creatine Kinase CK-MB (CK-2) Troponin T C-Reactive Protein Total Protein Albumin Triglycerides LDL Cholesterol Direct HDL Cholesterol Free T4 PTH Intact Urine WBC (Auto) Urine Creatinine Salicylates Acetaminophen Crossmatch 03/26/19 03/26/19 03/26/19 23:22 Unknown Unknown WBC 19.5 H RBC 3.44 L Hgb 9.8 L Hct 29.9 L RDW Plt Count 85 L Lymph % (Auto) [place] % (Auto) Lymph # Seg Neutrophils % Seg Neuts % (Manual) 95.0 H Lymphocytes % (Manual) 3.0 L Monocytes % (Manual) Nucleated RBC % Seg Neutrophils # Seg Neutrophils # Man 18.5 H Lymphocytes # (Manual) 0.6 L Monocytes # (Manual) PT INR D-Dimer Heparin Anti-Xa Level POC ABG pH ABG pH POC ABG pCO2 POC ABG pO2 ABG pO2 ABG HCO3 ABG O2 Saturation ABG Base Excess ABG Hemoglobin Oxyhemoglobin Sodium 135 L Potassium 5.2 H D Chloride 92.2 L Carbon Dioxide 18 L BUN 109 H Creatinine 8.5 H Glucose 117 H POC Glucose 69 L Lactic Acid Calcium 4.5 L* D Ionized Calcium Phosphorus Magnesium Iron TIBC Ferritin Total Bilirubin Direct Bilirubin AST ALT Alkaline Phosphatase Total Creatine Kinase 4527 H CK-MB (CK-2) Troponin T C-Reactive Protein Total Protein Albumin Triglycerides LDL Cholesterol Direct HDL Cholesterol Free T4 PTH Intact Urine WBC (Auto) Urine Creatinine Salicylates Acetaminophen Crossmatch 03/27/19 03/27/19 03/27/19 04:30 04:30 09:00 WBC 19.2 H RBC 3.42 L Hgb 9.9 L Hct 30.0 L RDW Plt Count 84 L Lymph % (Auto) [place] % (Auto) Lymph # Seg Neutrophils % Seg Neuts % (Manual) Lymphocytes % (Manual) Monocytes % (Manual) Nucleated RBC % Seg Neutrophils # Seg Neutrophils # Man Lymphocytes # (Manual) Monocytes # (Manual) PT INR D-Dimer Heparin Anti-Xa Level POC ABG pH ABG pH POC ABG pCO2 POC ABG pO2 ABG pO2 ABG HCO3 ABG O2 Saturation ABG Base Excess ABG Hemoglobin Oxyhemoglobin Sodium 135 L Potassium Chloride 93.5 L Carbon Dioxide BUN 84 H Creatinine 7.1 H Glucose POC Glucose Lactic Acid Calcium 5.0 L* Ionized Calcium Phosphorus Magnesium Iron TIBC Ferritin Total Bilirubin Direct Bilirubin AST 78 H ALT Alkaline Phosphatase 135 H Total Creatine Kinase 4677 H CK-MB (CK-2) Troponin T C-Reactive Protein Total Protein 4.8 L Albumin 2.3 L Triglycerides 409 H LDL Cholesterol Direct HDL Cholesterol Free T4 PTH Intact Urine WBC (Auto) Urine Creatinine Salicylates Acetaminophen Crossmatch 03/27/19 03/27/19 03/27/19 12:37 14:15 14:15 WBC RBC Hgb 9.7 L Hct 29.5 L RDW Plt Count 87 L Lymph % (Auto) [place] % (Auto) Lymph # Seg Neutrophils % Seg Neuts % (Manual) Lymphocytes % (Manual) Monocytes % (Manual) Nucleated RBC % Seg Neutrophils # Seg Neutrophils # Man Lymphocytes # (Manual) Monocytes # (Manual) PT 15.9 H INR 1.30 H D-Dimer Heparin Anti-Xa Level POC ABG pH ABG pH POC ABG pCO2 POC ABG pO2 ABG pO2 ABG HCO3 ABG O2 Saturation ABG Base Excess ABG Hemoglobin Oxyhemoglobin Sodium Potassium Chloride Carbon Dioxide BUN Creatinine Glucose POC Glucose 129 H Lactic Acid Calcium Ionized Calcium Phosphorus Magnesium Iron TIBC Ferritin Total Bilirubin Direct Bilirubin AST ALT Alkaline Phosphatase Total Creatine Kinase CK-MB (CK-2) Troponin T C-Reactive Protein Total Protein Albumin Triglycerides LDL Cholesterol Direct HDL Cholesterol Free T4 PTH Intact Urine WBC (Auto) Urine Creatinine Salicylates Acetaminophen Crossmatch 03/27/19 03/27/19 03/27/19 18:00 19:22 19:23 WBC RBC Hgb Hct RDW Plt Count Lymph % (Auto) [place] % (Auto) Lymph # Seg Neutrophils % Seg Neuts % (Manual) Lymphocytes % (Manual) Monocytes % (Manual) Nucleated RBC % Seg Neutrophils # Seg Neutrophils # Man Lymphocytes # (Manual) Monocytes # (Manual) PT INR D-Dimer Heparin Anti-Xa Level < 0.10 L POC ABG pH ABG pH POC ABG pCO2 POC ABG pO2 ABG pO2 ABG HCO3 ABG O2 Saturation ABG Base Excess ABG Hemoglobin Oxyhemoglobin Sodium Potassium Chloride Carbon Dioxide BUN Creatinine Glucose POC Glucose 121 H Lactic Acid Calcium Ionized Calcium Phosphorus Magnesium Iron TIBC Ferritin Total Bilirubin Direct Bilirubin AST ALT Alkaline Phosphatase Total Creatine Kinase 4517 H CK-MB (CK-2) Troponin T C-Reactive Protein Total Protein Albumin Triglycerides LDL Cholesterol Direct HDL Cholesterol Free T4 PTH Intact Urine WBC (Auto) Urine Creatinine Salicylates Acetaminophen Crossmatch 03/27/19 03/27/19 03/28/19 22:10 23:52 03:49 WBC RBC Hgb Hct RDW Plt Count Lymph % (Auto) [place] % (Auto) Lymph # Seg Neutrophils % Seg Neuts % (Manual) Lymphocytes % (Manual) Monocytes % (Manual) Nucleated RBC % Seg Neutrophils # Seg Neutrophils # Man Lymphocytes # (Manual) Monocytes # (Manual) PT INR D-Dimer Heparin Anti-Xa Level POC ABG pH 7.338 L ABG pH POC ABG pCO2 33.1 L POC ABG pO2 ABG pO2 ABG HCO3 ABG O2 Saturation ABG Base Excess ABG Hemoglobin Oxyhemoglobin Sodium Potassium Chloride Carbon Dioxide BUN Creatinine Glucose POC Glucose 113 H 117 H Lactic Acid Calcium Ionized Calcium Phosphorus Magnesium Iron TIBC Ferritin Total Bilirubin Direct Bilirubin AST ALT Alkaline Phosphatase Total Creatine Kinase CK-MB (CK-2) Troponin T C-Reactive Protein Total Protein Albumin Triglycerides LDL Cholesterol Direct HDL Cholesterol Free T4 PTH Intact Urine WBC (Auto) Urine Creatinine Salicylates Acetaminophen Crossmatch 03/28/19 03/28/19 03/28/19 05:13 05:13 06:18 WBC RBC Hgb Hct RDW Plt Count Lymph % (Auto) [place] % (Auto) Lymph # Seg Neutrophils % Seg Neuts % (Manual) Lymphocytes % (Manual) Monocytes % (Manual) Nucleated RBC % Seg Neutrophils # Seg Neutrophils # Man Lymphocytes # (Manual) Monocytes # (Manual) PT INR D-Dimer Heparin Anti-Xa Level 0.23 L POC ABG pH ABG pH POC ABG pCO2 POC ABG pO2 ABG pO2 ABG HCO3 ABG O2 Saturation ABG Base Excess ABG Hemoglobin Oxyhemoglobin Sodium 135 L Potassium 5.5 H D Chloride 95.1 L Carbon Dioxide 16 L D BUN 129 H Creatinine 9.3 H Glucose 158 H POC Glucose 202 H Lactic Acid Calcium 4.0 L* D Ionized Calcium Phosphorus 12.40 H Magnesium Iron TIBC Ferritin Total Bilirubin Direct Bilirubin AST ALT Alkaline Phosphatase Total Creatine Kinase 4266 H CK-MB (CK-2) Troponin T C-Reactive Protein Total Protein Albumin Triglycerides LDL Cholesterol Direct HDL Cholesterol Free T4 PTH Intact Urine WBC (Auto) Urine Creatinine Salicylates Acetaminophen Crossmatch 03/28/19 03/28/19 03/28/19 08:25 10:00 12:00 WBC RBC Hgb 4.9 L* D Hct 15.4 L* D RDW Plt Count Lymph % (Auto) [place] % (Auto) Lymph # Seg Neutrophils % Seg Neuts % (Manual) Lymphocytes % (Manual) Monocytes % (Manual) Nucleated RBC % Seg Neutrophils # Seg Neutrophils # Man Lymphocytes # (Manual) Monocytes # (Manual) PT 17.9 H INR 1.52 H D-Dimer 4845.98 H Heparin Anti-Xa Level POC ABG pH ABG pH POC ABG pCO2 POC ABG pO2 ABG pO2 ABG HCO3 ABG O2 Saturation ABG Base Excess ABG Hemoglobin Oxyhemoglobin Sodium Potassium Chloride Carbon Dioxide BUN Creatinine Glucose POC Glucose Lactic Acid Calcium Ionized Calcium Phosphorus Magnesium Iron TIBC Ferritin Total Bilirubin Direct Bilirubin AST ALT Alkaline Phosphatase Total Creatine Kinase CK-MB (CK-2) Troponin T C-Reactive Protein Total Protein Albumin Triglycerides LDL Cholesterol Direct HDL Cholesterol Free T4 PTH Intact Urine WBC (Auto) Urine Creatinine Salicylates Acetaminophen Crossmatch See Detail 03/28/19 03/28/19 03/28/19 12:28 14:10 17:43 WBC RBC Hgb 5.9 L* Hct 18.3 L* RDW Plt Count Lymph % (Auto) [place] % (Auto) Lymph # Seg Neutrophils % Seg Neuts % (Manual) Lymphocytes % (Manual) Monocytes % (Manual) Nucleated RBC % Seg Neutrophils # Seg Neutrophils # Man Lymphocytes # (Manual) Monocytes # (Manual) PT INR D-Dimer Heparin Anti-Xa Level POC ABG pH ABG pH POC ABG pCO2 POC ABG pO2 ABG pO2 ABG HCO3 ABG O2 Saturation ABG Base Excess ABG Hemoglobin Oxyhemoglobin Sodium Potassium Chloride Carbon Dioxide BUN Creatinine Glucose POC Glucose 153 H 159 H Lactic Acid Calcium Ionized Calcium Phosphorus Magnesium Iron TIBC Ferritin Total Bilirubin Direct Bilirubin AST ALT Alkaline Phosphatase Total Creatine Kinase CK-MB (CK-2) Troponin T C-Reactive Protein Total Protein Albumin Triglycerides LDL Cholesterol Direct HDL Cholesterol Free T4 PTH Intact Urine WBC (Auto) Urine Creatinine Salicylates Acetaminophen Crossmatch 03/28/19 03/28/19 03/28/19 18:10 Unknown 23:59 WBC 24.8 H RBC 3.42 L Hgb 10.2 L D Hct 31.1 L D RDW 15.4 H Plt Count 54 L Lymph % (Auto) [place] % (Auto) Lymph # Seg Neutrophils % Seg Neuts % (Manual) 91.0 H Lymphocytes % (Manual) 8.0 L Monocytes % (Manual) Nucleated RBC % Seg Neutrophils # Seg Neutrophils # Man 22.6 H Lymphocytes # (Manual) Monocytes # (Manual) PT INR D-Dimer Heparin Anti-Xa Level POC ABG pH ABG pH POC ABG pCO2 POC ABG pO2 ABG pO2 ABG HCO3 ABG O2 Saturation ABG Base Excess ABG Hemoglobin Oxyhemoglobin Sodium Potassium 5.7 H Chloride Carbon Dioxide BUN Creatinine Glucose POC Glucose 107 H Lactic Acid Calcium Ionized Calcium Phosphorus Magnesium Iron TIBC Ferritin Total Bilirubin Direct Bilirubin AST ALT Alkaline Phosphatase Total Creatine Kinase CK-MB (CK-2) Troponin T C-Reactive Protein Total Protein Albumin Triglycerides LDL Cholesterol Direct HDL Cholesterol Free T4 PTH Intact Urine WBC (Auto) Urine Creatinine Salicylates Acetaminophen Crossmatch 03/29/19 03/29/19 03/29/19 04:29 05:46 06:22 WBC RBC Hgb 8.6 L Hct 25.7 L RDW Plt Count 93 L Lymph % (Auto) [place] % (Auto) Lymph # Seg Neutrophils % Seg Neuts % (Manual) Lymphocytes % (Manual) Monocytes % (Manual) Nucleated RBC % Seg Neutrophils # Seg Neutrophils # Man Lymphocytes # (Manual) Monocytes # (Manual) PT INR D-Dimer Heparin Anti-Xa Level POC ABG pH ABG pH POC ABG pCO2 32.2 L POC ABG pO2 ABG pO2 ABG HCO3 ABG O2 Saturation ABG Base Excess ABG Hemoglobin Oxyhemoglobin Sodium Potassium Chloride Carbon Dioxide BUN Creatinine Glucose POC Glucose 113 H Lactic Acid Calcium Ionized Calcium Phosphorus Magnesium Iron TIBC Ferritin Total Bilirubin Direct Bilirubin AST ALT Alkaline Phosphatase Total Creatine Kinase CK-MB (CK-2) Troponin T C-Reactive Protein Total Protein Albumin Triglycerides LDL Cholesterol Direct HDL Cholesterol Free T4 PTH Intact Urine WBC (Auto) Urine Creatinine Salicylates Acetaminophen Crossmatch 03/29/19 03/29/19 03/29/19 06:22 06:22 06:22 WBC 23.2 H RBC 2.91 L Hgb 8.6 L Hct 25.8 L RDW Plt Count 91 L Lymph % (Auto) [place] % (Auto) Lymph # Seg Neutrophils % Seg Neuts % (Manual) Lymphocytes % (Manual) Monocytes % (Manual) Nucleated RBC % Seg Neutrophils # Seg Neutrophils # Man Lymphocytes # (Manual) Monocytes # (Manual) PT INR D-Dimer Heparin Anti-Xa Level POC ABG pH ABG pH POC ABG pCO2 POC ABG pO2 ABG pO2 ABG HCO3 ABG O2 Saturation ABG Base Excess ABG Hemoglobin Oxyhemoglobin Sodium 133 L Potassium Chloride 93.8 L Carbon Dioxide 18 L BUN 109 H Creatinine 7.4 H Glucose 124 H POC Glucose Lactic Acid Calcium 4.6 L* Ionized Calcium Phosphorus Magnesium Iron TIBC Ferritin Total Bilirubin Direct Bilirubin AST ALT Alkaline Phosphatase Total Creatine Kinase 3401 H CK-MB (CK-2) Troponin T C-Reactive Protein Total Protein Albumin Triglycerides 309 H LDL Cholesterol Direct HDL Cholesterol Free T4 PTH Intact Urine WBC (Auto) Urine Creatinine Salicylates Acetaminophen Crossmatch 03/29/19 03/29/19 03/29/19 11:48 11:48 18:24 WBC RBC Hgb 7.8 L Hct 23.2 L RDW Plt Count Lymph % (Auto) [place] % (Auto) Lymph # Seg Neutrophils % Seg Neuts % (Manual) Lymphocytes % (Manual) Monocytes % (Manual) Nucleated RBC % Seg Neutrophils # Seg Neutrophils # Man Lymphocytes # (Manual) Monocytes # (Manual) PT 15.3 H INR 1.24 H D-Dimer Heparin Anti-Xa Level POC ABG pH ABG pH POC ABG pCO2 POC ABG pO2 ABG pO2 ABG HCO3 ABG O2 Saturation ABG Base Excess ABG Hemoglobin Oxyhemoglobin Sodium Potassium Chloride Carbon Dioxide BUN Creatinine Glucose POC Glucose 122 H Lactic Acid Calcium Ionized Calcium Phosphorus Magnesium Iron TIBC Ferritin Total Bilirubin Direct Bilirubin AST ALT Alkaline Phosphatase Total Creatine Kinase CK-MB (CK-2) Troponin T C-Reactive Protein Total Protein Albumin Triglycerides LDL Cholesterol Direct HDL Cholesterol Free T4 PTH Intact Urine WBC (Auto) Urine Creatinine Salicylates Acetaminophen Crossmatch 03/30/19 03/30/19 03/30/19 00:40 04:31 05:04 WBC RBC Hgb 7.6 L Hct 23.0 L RDW Plt Count Lymph % (Auto) [place] % (Auto) Lymph # Seg Neutrophils % Seg Neuts % (Manual) Lymphocytes % (Manual) Monocytes % (Manual) Nucleated RBC % Seg Neutrophils # Seg Neutrophils # Man Lymphocytes # (Manual) Monocytes # (Manual) PT INR D-Dimer Heparin Anti-Xa Level POC ABG pH 7.346 L ABG pH POC ABG pCO2 POC ABG pO2 62 L ABG pO2 ABG HCO3 ABG O2 Saturation ABG Base Excess ABG Hemoglobin Oxyhemoglobin Sodium Potassium Chloride Carbon Dioxide BUN 79 H Creatinine 6.4 H Glucose POC Glucose Lactic Acid Calcium 6.1 L D Ionized Calcium Phosphorus Magnesium Iron TIBC Ferritin Total Bilirubin Direct Bilirubin AST ALT Alkaline Phosphatase Total Creatine Kinase CK-MB (CK-2) Troponin T C-Reactive Protein Total Protein Albumin Triglycerides LDL Cholesterol Direct HDL Cholesterol Free T4 PTH Intact Urine WBC (Auto) Urine Creatinine Salicylates Acetaminophen Crossmatch 03/30/19 03/30/19 03/30/19 08:45 12:09 22:43 WBC 14.3 H RBC 2.33 L Hgb 7.0 L 7.4 L Hct 21.0 L 22.3 L RDW 15.6 H Plt Count 135 L Lymph % (Auto) [place] % (Auto) Lymph # Seg Neutrophils % Seg Neuts % (Manual) Lymphocytes % (Manual) Monocytes % (Manual) Nucleated RBC % Seg Neutrophils # Seg Neutrophils # Man Lymphocytes # (Manual) Monocytes # (Manual) PT INR D-Dimer Heparin Anti-Xa Level POC ABG pH ABG pH POC ABG pCO2 POC ABG pO2 ABG pO2 ABG HCO3 ABG O2 Saturation ABG Base Excess ABG Hemoglobin Oxyhemoglobin Sodium Potassium Chloride Carbon Dioxide BUN Creatinine Glucose POC Glucose Lactic Acid Calcium Ionized Calcium 3.7 L Phosphorus Magnesium Iron TIBC Ferritin Total Bilirubin Direct Bilirubin AST ALT Alkaline Phosphatase Total Creatine Kinase CK-MB (CK-2) Troponin T C-Reactive Protein Total Protein Albumin Triglycerides LDL Cholesterol Direct HDL Cholesterol Free T4 PTH Intact Urine WBC (Auto) Urine Creatinine Salicylates Acetaminophen Crossmatch 03/30/19 03/30/19 03/31/19 23:38 Unknown 04:44 WBC 11.5 H RBC 2.40 L Hgb 7.3 L Hct 21.9 L RDW 15.4 H Plt Count Lymph % (Auto) 10.6 L [place] % (Auto) Lymph # Seg Neutrophils % 81.7 H Seg Neuts % (Manual) Lymphocytes % (Manual) Monocytes % (Manual) Nucleated RBC % Seg Neutrophils # 9.4 H Seg Neutrophils # Man Lymphocytes # (Manual) Monocytes # (Manual) PT INR D-Dimer Heparin Anti-Xa Level POC ABG pH ABG pH POC ABG pCO2 POC ABG pO2 ABG pO2 ABG HCO3 ABG O2 Saturation ABG Base Excess ABG Hemoglobin Oxyhemoglobin Sodium Potassium Chloride Carbon Dioxide BUN Creatinine Glucose POC Glucose 155 H Lactic Acid Calcium Ionized Calcium Phosphorus Magnesium Iron TIBC Ferritin Total Bilirubin Direct Bilirubin 0.4 H AST 63 H ALT Alkaline Phosphatase Total Creatine Kinase CK-MB (CK-2) Troponin T C-Reactive Protein Total Protein 4.9 L Albumin 2.2 L Triglycerides LDL Cholesterol Direct HDL Cholesterol Free T4 PTH Intact Urine WBC (Auto) Urine Creatinine Salicylates Acetaminophen Crossmatch 03/31/19 03/31/19 03/31/19 04:44 05:44 08:20 WBC RBC Hgb Hct RDW Plt Count Lymph % (Auto) [place] % (Auto) Lymph # Seg Neutrophils % Seg Neuts % (Manual) Lymphocytes % (Manual) Monocytes % (Manual) Nucleated RBC % Seg Neutrophils # Seg Neutrophils # Man Lymphocytes # (Manual) Monocytes # (Manual) PT INR D-Dimer Heparin Anti-Xa Level POC ABG pH ABG pH POC ABG pCO2 53.5 H POC ABG pO2 62 L ABG pO2 ABG HCO3 ABG O2 Saturation ABG Base Excess ABG Hemoglobin Oxyhemoglobin Sodium 135 L Potassium Chloride 96.7 L Carbon Dioxide 19 L BUN 94 H Creatinine 7.8 H Glucose POC Glucose Lactic Acid Calcium 5.3 L* Ionized Calcium Phosphorus 8.20 H Magnesium Iron TIBC Ferritin Total Bilirubin Direct Bilirubin 0.4 H AST 60 H ALT Alkaline Phosphatase Total Creatine Kinase CK-MB (CK-2) Troponin T C-Reactive Protein Total Protein 4.8 L Albumin 2.1 L Triglycerides LDL Cholesterol Direct HDL Cholesterol Free T4 PTH Intact Urine WBC (Auto) Urine Creatinine Salicylates Acetaminophen Crossmatch 03/31/19 04/01/19 04/01/19 22:14 04:27 04:27 WBC RBC 2.60 L Hgb 8.0 L Hct 24.1 L RDW 15.7 H Plt Count Lymph % (Auto) 7.9 L [place] % (Auto) Lymph # 0.7 L Seg Neutrophils % 83.6 H Seg Neuts % (Manual) Lymphocytes % (Manual) Monocytes % (Manual) Nucleated RBC % Seg Neutrophils # Seg Neutrophils # Man Lymphocytes # (Manual) Monocytes # (Manual) PT INR D-Dimer Heparin Anti-Xa Level POC ABG pH 7.286 L ABG pH POC ABG pCO2 54.7 H POC ABG pO2 179 H ABG pO2 ABG HCO3 ABG O2 Saturation ABG Base Excess ABG Hemoglobin Oxyhemoglobin Sodium Potassium Chloride Carbon Dioxide BUN 68 H Creatinine 6.6 H Glucose POC Glucose Lactic Acid Calcium 6.5 L D Ionized Calcium Phosphorus 7.30 H Magnesium Iron TIBC Ferritin Total Bilirubin Direct Bilirubin AST ALT Alkaline Phosphatase Total Creatine Kinase 1652 H CK-MB (CK-2) Troponin T C-Reactive Protein Total Protein Albumin Triglycerides LDL Cholesterol Direct HDL Cholesterol Free T4 PTH Intact Urine WBC (Auto) Urine Creatinine Salicylates Acetaminophen Crossmatch 04/01/19 04/01/19 04/01/19 05:14 05:37 18:37 WBC RBC Hgb Hct RDW Plt Count Lymph % (Auto) [place] % (Auto) Lymph # Seg Neutrophils % Seg Neuts % (Manual) Lymphocytes % (Manual) Monocytes % (Manual) Nucleated RBC % Seg Neutrophils # Seg Neutrophils # Man Lymphocytes # (Manual) Monocytes # (Manual) PT INR D-Dimer Heparin Anti-Xa Level POC ABG pH 7.283 L ABG pH POC ABG pCO2 53.4 H POC ABG pO2 241 H ABG pO2 ABG HCO3 ABG O2 Saturation ABG Base Excess ABG Hemoglobin Oxyhemoglobin Sodium Potassium Chloride Carbon Dioxide BUN Creatinine Glucose POC Glucose 111 H 119 H Lactic Acid Calcium Ionized Calcium Phosphorus Magnesium Iron TIBC Ferritin Total Bilirubin Direct Bilirubin AST ALT Alkaline Phosphatase Total Creatine Kinase CK-MB (CK-2) Troponin T C-Reactive Protein Total Protein Albumin Triglycerides LDL Cholesterol Direct HDL Cholesterol Free T4 PTH Intact Urine WBC (Auto) Urine Creatinine Salicylates Acetaminophen Crossmatch 04/01/19 04/02/19 04/02/19 21:28 04:40 05:03 WBC RBC 2.36 L Hgb 7.2 L Hct 21.9 L RDW 16.0 H Plt Count Lymph % (Auto) 10.8 L [place] % (Auto) Lymph # 0.8 L Seg Neutrophils % 80.3 H Seg Neuts % (Manual) Lymphocytes % (Manual) Monocytes % (Manual) Nucleated RBC % Seg Neutrophils # Seg Neutrophils # Man Lymphocytes # (Manual) Monocytes # (Manual) PT INR D-Dimer Heparin Anti-Xa Level POC ABG pH 7.299 L 7.300 L ABG pH POC ABG pCO2 48.2 H 45.2 H POC ABG pO2 133 H 107 H ABG pO2 ABG HCO3 ABG O2 Saturation ABG Base Excess ABG Hemoglobin Oxyhemoglobin Sodium Potassium Chloride Carbon Dioxide BUN Creatinine Glucose POC Glucose Lactic Acid Calcium Ionized Calcium Phosphorus Magnesium Iron TIBC Ferritin Total Bilirubin Direct Bilirubin AST ALT Alkaline Phosphatase Total Creatine Kinase CK-MB (CK-2) Troponin T C-Reactive Protein Total Protein Albumin Triglycerides LDL Cholesterol Direct HDL Cholesterol Free T4 PTH Intact Urine WBC (Auto) Urine Creatinine Salicylates Acetaminophen Crossmatch 04/02/19 04/02/19 04/02/19 05:03 05:03 12:15 WBC RBC Hgb 7.4 L Hct 22.6 L RDW Plt Count Lymph % (Auto) [place] % (Auto) Lymph # Seg Neutrophils % Seg Neuts % (Manual) Lymphocytes % (Manual) Monocytes % (Manual) Nucleated RBC % Seg Neutrophils # Seg Neutrophils # Man Lymphocytes # (Manual) Monocytes # (Manual) PT INR D-Dimer Heparin Anti-Xa Level POC ABG pH ABG pH POC ABG pCO2 POC ABG pO2 ABG pO2 ABG HCO3 ABG O2 Saturation ABG Base Excess ABG Hemoglobin Oxyhemoglobin Sodium 136 L Potassium Chloride 97.8 L Carbon Dioxide 18 L BUN 82 H Creatinine 8.2 H Glucose POC Glucose Lactic Acid Calcium 6.7 L Ionized Calcium Phosphorus 7.50 H Magnesium Iron 26 L TIBC 138 L Ferritin 607.0 H Total Bilirubin Direct Bilirubin AST ALT Alkaline Phosphatase Total Creatine Kinase CK-MB (CK-2) Troponin T C-Reactive Protein Total Protein Albumin Triglycerides LDL Cholesterol Direct HDL Cholesterol Free T4 PTH Intact Urine WBC (Auto) Urine Creatinine Salicylates Acetaminophen Crossmatch 04/02/19 04/02/19 04/03/19 16:34 17:14 04:18 WBC RBC Hgb Hct RDW Plt Count Lymph % (Auto) [place] % (Auto) Lymph # Seg Neutrophils % Seg Neuts % (Manual) Lymphocytes % (Manual) Monocytes % (Manual) Nucleated RBC % Seg Neutrophils # Seg Neutrophils # Man Lymphocytes # (Manual) Monocytes # (Manual) PT INR D-Dimer Heparin Anti-Xa Level POC ABG pH ABG pH POC ABG pCO2 POC ABG pO2 146 H ABG pO2 ABG HCO3 ABG O2 Saturation ABG Base Excess ABG Hemoglobin Oxyhemoglobin Sodium Potassium Chloride Carbon Dioxide BUN Creatinine Glucose POC Glucose 108 H Lactic Acid Calcium Ionized Calcium Phosphorus Magnesium Iron TIBC Ferritin Total Bilirubin Direct Bilirubin AST ALT Alkaline Phosphatase Total Creatine Kinase CK-MB (CK-2) Troponin T C-Reactive Protein Total Protein Albumin Triglycerides LDL Cholesterol Direct HDL Cholesterol Free T4 PTH Intact Urine WBC (Auto) Urine Creatinine Salicylates Acetaminophen Crossmatch See Detail 04/03/19 04/03/19 04/03/19 04:25 08:30 18:24 WBC RBC 2.40 L Hgb 7.3 L Hct 21.9 L RDW Plt Count Lymph % (Auto) [place] % (Auto) 7.7 H Lymph # 0.9 L Seg Neutrophils % 74.6 H Seg Neuts % (Manual) Lymphocytes % (Manual) Monocytes % (Manual) Nucleated RBC % Seg Neutrophils # Seg Neutrophils # Man Lymphocytes # (Manual) Monocytes # (Manual) PT INR D-Dimer Heparin Anti-Xa Level POC ABG pH ABG pH POC ABG pCO2 POC ABG pO2 ABG pO2 ABG HCO3 ABG O2 Saturation ABG Base Excess ABG Hemoglobin Oxyhemoglobin Sodium 136 L Potassium Chloride 97.0 L Carbon Dioxide BUN 58 H Creatinine 7.3 H Glucose POC Glucose 106 H Lactic Acid Calcium 7.5 L Ionized Calcium Phosphorus 5.80 H D Magnesium Iron TIBC Ferritin Total Bilirubin Direct Bilirubin AST ALT Alkaline Phosphatase Total Creatine Kinase CK-MB (CK-2) Troponin T C-Reactive Protein Total Protein Albumin Triglycerides LDL Cholesterol Direct HDL Cholesterol Free T4 PTH Intact Urine WBC (Auto) Urine Creatinine Salicylates Acetaminophen Crossmatch 04/03/19 04/04/19 04/04/19 23:43 04:47 04:47 WBC RBC 2.72 L Hgb 8.3 L Hct 24.7 L RDW 15.6 H Plt Count Lymph % (Auto) [place] % (Auto) 10.1 H Lymph # 0.8 L Seg Neutrophils % 71.4 H Seg Neuts % (Manual) Lymphocytes % (Manual) Monocytes % (Manual) Nucleated RBC % Seg Neutrophils # Seg Neutrophils # Man Lymphocytes # (Manual) Monocytes # (Manual) PT INR D-Dimer Heparin Anti-Xa Level POC ABG pH ABG pH POC ABG pCO2 POC ABG pO2 ABG pO2 123.8 H ABG HCO3 ABG O2 Saturation ABG Base Excess -3.0 L ABG Hemoglobin 7.9 L Oxyhemoglobin Sodium 134 L Potassium Chloride 97.9 L Carbon Dioxide BUN 64 H Creatinine 8.1 H Glucose POC Glucose Lactic Acid Calcium 7.2 L Ionized Calcium Phosphorus Magnesium Iron TIBC Ferritin Total Bilirubin Direct Bilirubin AST ALT Alkaline Phosphatase Total Creatine Kinase CK-MB (CK-2) Troponin T C-Reactive Protein Total Protein Albumin Triglycerides LDL Cholesterol Direct HDL Cholesterol Free T4 PTH Intact Urine WBC (Auto) Urine Creatinine Salicylates Acetaminophen Crossmatch 04/04/19 04/04/19 04/04/19 06:07 13:40 18:18 WBC RBC Hgb Hct RDW Plt Count Lymph % (Auto) [place] % (Auto) Lymph # Seg Neutrophils % Seg Neuts % (Manual) Lymphocytes % (Manual) Monocytes % (Manual) Nucleated RBC % Seg Neutrophils # Seg Neutrophils # Man Lymphocytes # (Manual) Monocytes # (Manual) PT INR D-Dimer Heparin Anti-Xa Level POC ABG pH ABG pH POC ABG pCO2 POC ABG pO2 ABG pO2 95.9 H ABG HCO3 ABG O2 Saturation ABG Base Excess -3.0 L ABG Hemoglobin 8.5 L Oxyhemoglobin Sodium Potassium Chloride Carbon Dioxide BUN Creatinine Glucose POC Glucose 107 H 107 H Lactic Acid Calcium Ionized Calcium Phosphorus Magnesium Iron TIBC Ferritin Total Bilirubin Direct Bilirubin AST ALT Alkaline Phosphatase Total Creatine Kinase CK-MB (CK-2) Troponin T C-Reactive Protein Total Protein Albumin Triglycerides LDL Cholesterol Direct HDL Cholesterol Free T4 PTH Intact Urine WBC (Auto) Urine Creatinine Salicylates Acetaminophen Crossmatch 04/04/19 04/05/19 04/05/19 21:22 04:09 04:09 WBC RBC 2.76 L Hgb 8.4 L Hct 25.4 L RDW 15.8 H Plt Count 133 L Lymph % (Auto) [place] % (Auto) 9.6 H Lymph # 0.7 L Seg Neutrophils % 72.6 H Seg Neuts % (Manual) Lymphocytes % (Manual) Monocytes % (Manual) Nucleated RBC % Seg Neutrophils # Seg Neutrophils # Man Lymphocytes # (Manual) Monocytes # (Manual) PT INR D-Dimer Heparin Anti-Xa Level POC ABG pH ABG pH POC ABG pCO2 47.2 H POC ABG pO2 137 H ABG pO2 ABG HCO3 ABG O2 Saturation ABG Base Excess ABG Hemoglobin Oxyhemoglobin Sodium 136 L Potassium Chloride Carbon Dioxide BUN 46 H Creatinine 6.7 H Glucose POC Glucose Lactic Acid Calcium 7.7 L Ionized Calcium Phosphorus Magnesium Iron TIBC Ferritin Total Bilirubin Direct Bilirubin AST ALT Alkaline Phosphatase Total Creatine Kinase CK-MB (CK-2) Troponin T C-Reactive Protein Total Protein Albumin Triglycerides LDL Cholesterol Direct HDL Cholesterol Free T4 PTH Intact Urine WBC (Auto) Urine Creatinine Salicylates Acetaminophen Crossmatch 04/05/19 04/05/19 04/05/19 05:28 06:14 16:50 WBC RBC Hgb Hct RDW Plt Count Lymph % (Auto) [place] % (Auto) Lymph # Seg Neutrophils % Seg Neuts % (Manual) Lymphocytes % (Manual) Monocytes % (Manual) Nucleated RBC % Seg Neutrophils # Seg Neutrophils # Man Lymphocytes # (Manual) Monocytes # (Manual) PT INR D-Dimer Heparin Anti-Xa Level POC ABG pH ABG pH POC ABG pCO2 POC ABG pO2 67 L ABG pO2 ABG HCO3 ABG O2 Saturation ABG Base Excess ABG Hemoglobin Oxyhemoglobin Sodium Potassium Chloride Carbon Dioxide BUN Creatinine Glucose POC Glucose 108 H Lactic Acid Calcium Ionized Calcium Phosphorus Magnesium Iron TIBC Ferritin Total Bilirubin Direct Bilirubin AST ALT Alkaline Phosphatase Total Creatine Kinase CK-MB (CK-2) Troponin T C-Reactive Protein Total Protein Albumin Triglycerides LDL Cholesterol Direct HDL Cholesterol Free T4 PTH Intact Urine WBC (Auto) 40.0 H Urine Creatinine Salicylates Acetaminophen Crossmatch 04/05/19 04/06/19 04/06/19 17:22 00:13 04:44 WBC RBC 2.48 L Hgb 7.5 L Hct 22.9 L RDW 16.0 H Plt Count 107 L Lymph % (Auto) [place] % (Auto) 10.7 H Lymph # 1.0 L Seg Neutrophils % Seg Neuts % (Manual) Lymphocytes % (Manual) Monocytes % (Manual) Nucleated RBC % Seg Neutrophils # Seg Neutrophils # Man Lymphocytes # (Manual) Monocytes # (Manual) PT INR D-Dimer Heparin Anti-Xa Level POC ABG pH ABG pH POC ABG pCO2 POC ABG pO2 ABG pO2 ABG HCO3 ABG O2 Saturation ABG Base Excess ABG Hemoglobin Oxyhemoglobin Sodium Potassium Chloride Carbon Dioxide BUN Creatinine Glucose POC Glucose 118 H 138 H Lactic Acid Calcium Ionized Calcium Phosphorus Magnesium Iron TIBC Ferritin Total Bilirubin Direct Bilirubin AST ALT Alkaline Phosphatase Total Creatine Kinase CK-MB (CK-2) Troponin T C-Reactive Protein Total Protein Albumin Triglycerides LDL Cholesterol Direct HDL Cholesterol Free T4 PTH Intact Urine WBC (Auto) Urine Creatinine Salicylates Acetaminophen Crossmatch 04/06/19 04/06/19 04/06/19 04:44 05:20 05:23 WBC RBC Hgb Hct RDW Plt Count Lymph % (Auto) [place] % (Auto) Lymph # Seg Neutrophils % Seg Neuts % (Manual) Lymphocytes % (Manual) Monocytes % (Manual) Nucleated RBC % Seg Neutrophils # Seg Neutrophils # Man Lymphocytes # (Manual) Monocytes # (Manual) PT INR D-Dimer Heparin Anti-Xa Level POC ABG pH ABG pH POC ABG pCO2 POC ABG pO2 ABG pO2 104.0 H ABG HCO3 ABG O2 Saturation ABG Base Excess -2.1 L ABG Hemoglobin 7.3 L Oxyhemoglobin Sodium Potassium Chloride Carbon Dioxide BUN 64 H Creatinine 8.2 H Glucose 103 H POC Glucose 118 H Lactic Acid Calcium 7.3 L Ionized Calcium Phosphorus Magnesium Iron TIBC Ferritin Total Bilirubin Direct Bilirubin AST ALT Alkaline Phosphatase Total Creatine Kinase CK-MB (CK-2) Troponin T C-Reactive Protein Total Protein Albumin Triglycerides LDL Cholesterol Direct HDL Cholesterol Free T4 PTH Intact Urine WBC (Auto) Urine Creatinine Salicylates Acetaminophen Crossmatch 04/06/19 04/07/19 04/07/19 12:02 05:40 05:40 WBC RBC 2.59 L Hgb 7.9 L Hct 23.8 L RDW 15.8 H Plt Count 89 L Lymph % (Auto) [place] % (Auto) 10.3 H Lymph # 1.1 L Seg Neutrophils % Seg Neuts % (Manual) Lymphocytes % (Manual) Monocytes % (Manual) Nucleated RBC % Seg Neutrophils # Seg Neutrophils # Man Lymphocytes # (Manual) Monocytes # (Manual) PT INR D-Dimer Heparin Anti-Xa Level POC ABG pH ABG pH POC ABG pCO2 POC ABG pO2 ABG pO2 ABG HCO3 ABG O2 Saturation ABG Base Excess ABG Hemoglobin Oxyhemoglobin Sodium 136 L Potassium 3.5 L Chloride Carbon Dioxide BUN 46 H Creatinine 6.2 H Glucose POC Glucose 108 H Lactic Acid Calcium 7.9 L Ionized Calcium Phosphorus Magnesium Iron TIBC Ferritin Total Bilirubin Direct Bilirubin AST ALT Alkaline Phosphatase Total Creatine Kinase CK-MB (CK-2) Troponin T C-Reactive Protein Total Protein Albumin Triglycerides LDL Cholesterol Direct HDL Cholesterol Free T4 PTH Intact Urine WBC (Auto) Urine Creatinine Salicylates Acetaminophen Crossmatch 04/07/19 12:57 WBC RBC Hgb Hct RDW Plt Count Lymph % (Auto) [place] % (Auto) Lymph # Seg Neutrophils % Seg Neuts % (Manual) Lymphocytes % (Manual) Monocytes % (Manual) Nucleated RBC % Seg Neutrophils # Seg Neutrophils # Man Lymphocytes # (Manual) Monocytes # (Manual) PT INR D-Dimer Heparin Anti-Xa Level POC ABG pH ABG pH POC ABG pCO2 POC ABG pO2 107 H ABG pO2 ABG HCO3 ABG O2 Saturation ABG Base Excess ABG Hemoglobin Oxyhemoglobin Sodium Potassium Chloride Carbon Dioxide BUN Creatinine Glucose POC Glucose Lactic Acid Calcium Ionized Calcium Phosphorus Magnesium Iron TIBC Ferritin Total Bilirubin Direct Bilirubin AST ALT Alkaline Phosphatase Total Creatine Kinase CK-MB (CK-2) Troponin T C-Reactive Protein Total Protein Albumin Triglycerides LDL Cholesterol Direct HDL Cholesterol Free T4 PTH Intact Urine WBC (Auto) Urine Creatinine Salicylates Acetaminophen Crossmatch Allied health notes reviewed: RT
[2019-04-07] MEDS ORDERED: D5W/0.45% NACL 1,000 ML IV SCH (19:00)
[2019-04-08] MEDS: METOPROLOL TARTRATE 25 MG TAB PO SCH ×4 (04:47→22:29)
[2019-04-08] MEDS: CALCIUM ACETATE 667 MG CAP PO SCH ×3 (08:00→22:29)
[2019-04-08] MEDS: AMIODARONE 200 MG TAB PO SCH ×3 (08:00→22:29)
[2019-04-08] MEDS: PARICALCITOL 2 MCG/1 ML INJ IV SCH (10:00)
[2019-04-08] MEDS: PANTOPRAZOLE 40 MG INJ IV SCH ×2 (10:00→22:29)
--- NOTE | 2019-04-08 11:25 | Progress Note ---
Assessment and Plan Cultures: 03/16/2019 sputum: salivary contamination 03/16/2019 Blood culture: no growth 03/17/2019 Urine culture no growth 03/17/2019 throat culture: no growth 03/26/2019 Blood culture: no growth 03/27/2019 Blood culture negative. 04/04/2019 blood culture NGTD 04/05/2019 urine culture: no growth Assessment: 43y/o male with possible psych history admitted on 03/16/2019 with: 1) Septic shock: Resolved. Fever after right IJ exchanged overwire on 03/27, fever is better; leukocytosis resolved. Fever source is unclear - suspect IJ DVT ?thrombophlebitis, other ?NMS ?sinusitis, ?drug fever. Brain MRI showed no acute intracranial abnormality, mild nonspecific chronic white matter changes, fluid throughout the sinuses and mastoid air cells. Venous US + right IJ DVT. Completed empiric Cefepime x 10 days on 04/06/2019. Initial septic shock - Possible Infectious etiology v/s possibility of N euroleptic Malignant Syndrome given psych history, high fever of 105F and extremely elevated CPK of >100K. Unclear if he was on any psych med. From ID standpoint, we will continue broad coverage for acute bacterial meningitis, tick borne illness, aspiration pneumonia. Blood culture negative UA with mild pyuria. HIV rapid negative. Strep A rapid ag negative. No obvious infectious source identified yet. 2) Probable aspiration pneumonia: Already completed adequate abx. 3) Acute respiratory failure: on the vent. Improving. 4) ?Right axillary edema: no abscess, US no collection seen 5) Acute encephalopathy: improving, awake, alert, calm. CT head showed diffuse cerebral edema ?artifact. But too unstable for LP at this time. Low suspicion for HSV meningoencephalitis given the degree of his initial shock and clinical status. Given nationwide acyclovir shortage and low suspicion, would not recommend IV Ganciclovir at this time. 6) Acute renal failure: renally dosing all abx, now on HD 7) Elevated LFTs/shock liver: also likely elevated from Rhabdomyolysis. Viral hepatitis panel negative. LFTs continue to improve. 8) Thrombocytopenia: multifactorial - better 9) Rhabdomyolysis: CK continues to improve 10) ?Enteritis: per CT ? no collection no perforation no obvious ischemic bowel. Gen. Surg following Recommendations: Completed antibiotics on 04/06/2019. Monitor off abx. No fever Continue supportive care and wound care Katherine Elizabeth MD, FACP [facility] ([facility]) C: [phone] O: [phone] F: [phone] Subjective Date of service: 04/08/19 Principal diagnosis: C-P arrest, resp failure, PAF w RVR, ARF, Septic shock, VT, Asp pneumonia Interval history: No fever. Extubated since last seen by us. Denies any complaints. No issues per RN. Objective - Exam Narrative Exam: Physical Exam: Constitutional: Alert, cooperative. No acute distress Head, Ears, Nose: Normocephalic, atraumatic. External ears, nose normal Eyes: Conjunctivae/corneas clear. No icterus. No ptosis. Neck: Supple, no meningeal signs. R IJ HD cath + Cardiovascular: S1, S2 normal. Respiratory: Good air entry, clear to auscultation bilaterally GI: Soft, non-tender; bowel sounds normal. No peritoneal signs Musculoskeletal: pedal and scrotal edema + Skin: No rash or abscess Hem/Lymphatic: No palpable cervical or supraclavicular nodes. No lymphangitis Psych: Mood ok. no agitation Neurological: Awake, alert, talks but slightly confused, thinks he is in [place]. - Constitutional Vitals: Vital Signs Temp Pulse Resp BP Pulse Ox 98.4 F 109 H 34 H 107/65 100 04/08/19 08:00 04/08/19 07:30 04/08/19 07:30 04/08/19 07:30 04/08/19 07:48 Temperature -Last 24 Hours Temperature 98.4 F Temperature 98.8 F Temperature 98.2 F Temperature 98.9 F Temperature 99.4 F Temperature 99.2 F - Labs CBC & Chem 7: 04/07/19 05:40 04/07/19 05:40 Labs: Abnormal lab results 04/07/19 Range/Units 12:57 POC ABG pO2 107 H (80-105)
--- NOTE | 2019-04-08 12:01 | Progress Note ---
Assessment and Plan Assessment and plan: Patient is a 43-year-old man with history of GERD, obesity and mental illness who presented to [facility] ED on 03/16/2019 with altered mental status. He is visiting from [place] and was brought in by his friend. When he came to the ER, he was unable to speak or follow commands, in the ER he was found to have SVT with heart rate in the 250s. The patient was shocks and medicated. He became more confused and had trouble protecting his airway; therefore, he was then intubated. During this hospital coarse, he was found to have sepsis with septic shock, rhabdomyolysis, RUBEN, and multisystem organ failure. According to the patient's clinical findings, the patient likely has toxic metabolic encephalopathy. Acute hypoxic respiratory failure on mechanical ventilator greater than 96 hours , suspect ARDS, extubated around 1:30pm on 04/07/19: continue to monitor P.Afib/flutter with RVR: treated with IV Amiodorone, Cardiology is following Torsade sparkle points/ventricular tachycardia resolved Acute combine heart failure, EF 40%: Cardiology input noted, continue amiodarone drip, no beta-adela or CHRISTIN given hypotension, will need ischemic cardiac stratification if he improves. Acute GI bleed, upper GI bleed due to PUD, EGD on 03/30 shows multiple ulcers, and large ulcer was rx with epi, unfortunately patient had melena again on 04/02, resolved, Protonix iv bid now Acute blood loss anemia, Transfused multiple units of PRBC, now improved, transfuse another unit as patient is actively bleeding Right IJ nonocclusive thrombosis, Discussed with vascular surgery, patient unable to tolerate anticoagulation due to thrombocytopenia and GI bleeding. Will monitor Septic shock with multiorgan failure, off pressors >48 hours: down to Levophed, continue to wean vasopressors Aspiration pneumonia: completed ABX Acute kidney injury, rhabdomyolysis, hyperkalemia due to ATN: Continue dialysis per nephrology Acute Metabolic Encephalopathy Severe metabolic acidosis, improved: monitoring BMP closely Rhabdomyolysis, CK trending down Thrombocytopenia, Likely due to sepsis, continue to monitor ?Right axillary edema: no abscess, US no collection seen DVT prophylaxis, no anticoagulation given multiple episodes of GI bleed and thrombocytopenia. SCDs Polyneuropahty of Critical illness suspect myopathy: treat with Physical Therapy, minimize sedation, DNR History Interval history: Patient was seen and examined. Follow-up on current diagnosis of resp failure. No overnight events reported to me. Imaging, nursing note, chart, labs and old chart reviewed. Patient intubated and sedated. Hospitalist Physical - Physical exam Narrative exam: Gen: critically ill, bmi 47, intubated and sedated HEENT: NCAT, EOMI, PERRL, OP eTT and NGt in place Neck: supple, no adenopathy, no thyromegaly, CVS/Heart: irregular irregular, normal S1S2, pulses present bilaterally Chest/Lungs: Symmetrical chest expansion, good air entry bilaterally GI/Abdomen: soft, NTND, good bowel sounds, no guarding or rebound /Bladder: no suprapubic tenderness, no CVA or paraspinal tenderness Extermity/Skin: dependent edema MSK: sedated Neuro: sedated Psych: sedated - Constitutional Vitals: Temp Pulse Resp BP Pulse Ox 98.4 F 109 H 34 H 107/65 100 04/08/19 08:00 04/08/19 07:30 04/08/19 07:30 04/08/19 07:30 04/08/19 07:48 General appearance: Present: other (intubated) Results - Labs CBC & Chem 7: 04/07/19 05:40 04/07/19 05:40 Labs: Laboratory Last Values WBC 5.6 K/mm3 (4.5-11.0) 04/07/19 05:40 RBC 2.59 M/mm3 (3.65-5.03) L 04/07/19 05:40 Hgb 7.9 gm/dl (11.8-15.2) L 04/07/19 05:40 Hct 23.8 % (35.5-45.6) L 04/07/19 05:40 MCV 92 fl (84-94) 04/07/19 05:40 MCH 31 pg (28-32) 04/07/19 05:40 MCHC 33 % (32-34) 04/07/19 05:40 RDW 15.8 % (13.2-15.2) H 04/07/19 05:40 Plt Count 89 K/mm3 (140-440) L 04/07/19 05:40 Lymph % (Auto) 19.7 % (13.4-35.0) 04/07/19 05:40 Elliott % (Auto) 10.3 % (0.0-7.3) H 04/07/19 05:40 Eos % (Auto) 3.7 % (0.0-4.3) 04/07/19 05:40 Baso % (Auto) 0.7 % (0.0-1.8) 04/07/19 05:40 Lymph # 1.1 K/mm3 (1.2-5.4) L 04/07/19 05:40 Elliott # 0.6 K/mm3 (0.0-0.8) 04/07/19 05:40 Eos # 0.2 K/mm3 (0.0-0.4) 04/07/19 05:40 Baso # 0.0 K/mm3 (0.0-0.1) 04/07/19 05:40 Add Manual Diff Complete 03/28/19 18:10 Total Counted 100 03/28/19 18:10 Seg Neutrophils % 65.6 % (40.0-70.0) 04/07/19 05:40 Seg Neuts % (Manual) 91.0 % (40.0-70.0) H 03/28/19 18:10 Band Neutrophils % 0 % 03/28/19 18:10 Lymphocytes % (Manual) 8.0 % (13.4-35.0) L 03/28/19 18:10 Reactive Lymphs % (Man) 0 % 03/28/19 18:10 Monocytes % (Manual) 1.0 % (0.0-7.3) 03/28/19 18:10 Eosinophils % (Manual) 0 % (0.0-4.3) 03/28/19 18:10 Basophils % (Manual) 0 % (0.0-1.8) 03/28/19 18:10 Metamyelocytes % 0 % 03/28/19 18:10 Myelocytes % 0 % 03/28/19 18:10 Promyelocytes % 0 % 03/28/19 18:10 Blast Cells % 0 % 03/28/19 18:10 Nucleated RBC % Not Reportable 03/28/19 18:10 Seg Neutrophils # 3.7 K/mm3 (1.8-7.7) 04/07/19 05:40 Seg Neutrophils # Man 22.6 K/mm3 (1.8-7.7) H 03/28/19 18:10 Band Neutrophils # 0.0 K/mm3 03/28/19 18:10 Lymphocytes # (Manual) 2.0 K/mm3 (1.2-5.4) 03/28/19 18:10 Abs React Lymphs (Man) 0.0 K/mm3 03/28/19 18:10 Monocytes # (Manual) 0.2 K/mm3 (0.0-0.8) 03/28/19 18:10 Eosinophils # (Manual) 0.0 K/mm3 (0.0-0.4) 03/28/19 18:10 Basophils # (Manual) 0.0 K/mm3 (0.0-0.1) 03/28/19 18:10 Metamyelocytes # 0.0 K/mm3 03/28/19 18:10 Myelocytes # 0.0 K/mm3 03/28/19 18:10 Promyelocytes # 0.0 K/mm3 03/28/19 18:10 Blast Cells # 0.0 K/mm3 03/28/19 18:10 WBC Morphology Not Reportable 03/28/19 18:10 Hypersegmented Neuts Not Reportable 03/28/19 18:10 Hyposegmented Neuts Not Reportable 03/28/19 18:10 Hypogranular Neuts Not Reportable 03/28/19 18:10 Smudge Cells Not Reportable 03/28/19 18:10 Toxic Granulation Not Reportable 03/28/19 18:10 Toxic Vacuolation Not Reportable 03/28/19 18:10 Dohle Bodies Not Reportable 03/28/19 18:10 Pelger-Huet Anomaly Not Reportable 03/28/19 18:10 Joyce Rods Not Reportable 03/28/19 18:10 Platelet Estimate Appears decreased 03/28/19 18:10 Clumped Platelets Not Reportable 03/28/19 18:10 Plt Clumps, EDTA Not Reportable 03/28/19 18:10 Large Platelets Not Reportable 03/28/19 18:10 Giant Platelets Not Reportable 03/28/19 18:10 Platelet Satelliting Not Reportable 03/28/19 18:10 Plt Morphology Comment Not Reportable 03/28/19 18:10 RBC Morphology Not Reportable 03/28/19 18:10 Dimorphic RBCs Not Reportable 03/28/19 18:10 Polychromasia Not Reportable 03/28/19 18:10 Hypochromasia Not Reportable 03/28/19 18:10 Poikilocytosis Not Reportable 03/28/19 18:10 Anisocytosis Few 03/28/19 18:10 Microcytosis Not Reportable 03/28/19 18:10 Macrocytosis Not Reportable 03/28/19 18:10 Spherocytes Not Reportable 03/28/19 18:10 Pappenheimer Bodies Not Reportable 03/28/19 18:10 Sickle Cells Not Reportable 03/28/19 18:10 Target Cells Not Reportable 03/28/19 18:10 Tear Drop Cells Not Reportable 03/28/19 18:10 Ovalocytes Not Reportable 03/28/19 18:10 Stomatocytes Few 03/26/19 Unknown Helmet Cells Not Reportable 03/28/19 18:10 [place] Bodies Not Reportable 03/28/19 18:10 [place] Rings Not Reportable 03/28/19 18:10 [place] Cells Not Reportable 03/28/19 18:10 Bite Cells Not Reportable 03/28/19 18:10 Crenated Cell Not Reportable 03/28/19 18:10 Elliptocytes Not Reportable 03/28/19 18:10 Acanthocytes (Spur) Not Reportable 03/28/19 18:10 Rouleaux Not Reportable 03/28/19 18:10 Hemoglobin C Crystals Not Reportable 03/28/19 18:10 Schistocytes Not Reportable 03/28/19 18:10 Malaria parasites Not Reportable 03/28/19 18:10 Phil Bodies Not Reportable 03/28/19 18:10 Hem Pathologist Commnt No 03/28/19 18:10 PT 15.3 Sec. (12.2-14.9) H 03/29/19 11:48 INR 1.24 (0.87-1.13) H 03/29/19 11:48 APTT 26.6 Sec. (24.2-36.6) 03/28/19 12:00 Fibrinogen 226 mg/dl (211-480) 03/28/19 12:00 D-Dimer 4845.98 ng/mlDDU (0-234) H 03/28/19 12:00 Heparin Anti-Xa Level 0.23 U.I./ml (0.3-0.7) L 03/28/19 05:13 POC ABG pH 7.401 (7.35-7.45) 04/07/19 12:57 ABG pH 7.388 pH Units (7.350-7.450) 04/06/19 05:20 POC ABG pCO2 41.5 (35-45) 04/07/19 12:57 ABG pCO2 38.5 mm Hg 04/06/19 05:20 POC ABG pO2 107 (80-105) H 04/07/19 12:57 ABG pO2 104.0 mm Hg (80.0-90.0) H 04/06/19 05:20 POC ABG HCO3 25.7 (22-26 mml/L) 04/07/19 12:57 ABG HCO3 22.6 mmol/L (20.0-26.0) 04/06/19 05:20 POC ABG Total CO2 27 (23-27mmol/L) 04/07/19 12:57 POC ABG O2 Sat 98 04/07/19 12:57 ABG O2 Saturation 97.8 % (95.0-99.0) 04/06/19 05:20 ABG O2 Content 10.0 (0.0-44) 04/06/19 05:20 POC ABG Base Excess 1 ((-2) - (+3)mmol/L) 04/07/19 12:57 ABG Base Excess -2.1 mmol/L (-2.0-3.0) L 04/06/19 05:20 ABG Hemoglobin 7.3 gm/dl (14.0-18.0) L 04/06/19 05:20 ABG Carboxyhemoglobin 1.7 % (0.0-5.0) 04/06/19 05:20 ABG Methemoglobin 0.6 % (0.0-1.5) 04/06/19 05:20 Oxyhemoglobin 95.5 % (95.0-99.0) 04/06/19 05:20 FiO2 30 % 04/07/19 12:57 Sodium 136 mmol/L (137-145) L 04/07/19 05:40 Potassium 3.5 mmol/L (3.6-5.0) L 04/07/19 05:40 Chloride 98.6 mmol/L (98-107) 04/07/19 05:40 Carbon Dioxide 26 mmol/L (22-30) 04/07/19 05:40 Anion Gap 15 mmol/L 04/07/19 05:40 BUN 46 mg/dL (9-20) H 04/07/19 05:40 Creatinine 6.2 mg/dL (0.8-1.5) H 04/07/19 05:40 Estimated GFR 10 ml/min 04/07/19 05:40 BUN/Creatinine Ratio 7 % 04/07/19 05:40 Glucose 94 mg/dL (75-100) 04/07/19 05:40 POC Glucose 89 (70-105) 04/08/19 05:23 Lactic Acid 1.90 mmol/L (0.7-2.0) 03/21/19 21:31 Calcium 7.9 mg/dL (8.4-10.2) L 04/07/19 05:40 Ionized Calcium 3.7 mg/dL (4.8-5.6) L 03/30/19 12:09 Phosphorus 5.80 mg/dL (2.5-4.5) H D 04/03/19 08:30 Magnesium 1.90 mg/dL (1.7-2.3) 03/31/19 15:07 Iron 26 ug/dL (49-181) L 04/02/19 05:03 TIBC 138 mcg/dL (250-450) L 04/02/19 05:03 Ferritin 607.0 ng/mL (13.0-400.0) H 04/02/19 05:03 Total Bilirubin 0.50 mg/dL (0.1-1.2) 03/31/19 08:20 Direct Bilirubin 0.4 mg/dL (0-0.2) H 03/31/19 08:20 Indirect Bilirubin 0.1 mg/dL 03/31/19 08:20 AST 60 units/L (5-40) H 03/31/19 08:20 ALT 30 units/L (7-56) 03/31/19 08:20 Alkaline Phosphatase 59 units/L (35-129) 03/31/19 08:20 Total Creatine Kinase 62 units/L (55-170) 04/07/19 05:40 CK-MB (CK-2) 54.3 ng/mL (0.0-4.0) H 03/17/19 07:16 CK-MB (CK-2) Rel Index 0.0 (0-4) 03/17/19 07:16 Troponin T 0.058 ng/mL (0.00-0.029) H 03/17/19 07:16 C-Reactive Protein 13.30 mg/dL (0.00-1.30) H 03/20/19 14:45 Total Protein 4.8 g/dL (6.3-8.2) L 03/31/19 08:20 Albumin 2.1 g/dL (3.9-5) L 03/31/19 08:20 Albumin/Globulin Ratio 0.8 % 03/31/19 08:20 Triglycerides 309 mg/dL (2-149) H 03/29/19 06:22 Cholesterol 88 mg/dL (50-199) 03/16/19 22:32 LDL Cholesterol Direct 10 mg/dL (50-130) L 03/16/19 22:32 HDL Cholesterol 7 mg/dL (40-59) L 03/16/19 22:32 Cholesterol/HDL Ratio 12.57 % 03/16/19 22:32 Vitamin B12 903.0 pg/mL (211-911) 04/02/19 05:03 Folate 8.05 ng/mL (7.3-26.0) 04/02/19 05:03 Procalcitonin 25.42 ng/mL (<0.15) 03/27/19 19:21 TSH 2.200 mlU/mL (0.270-4.200) 03/16/19 17:05 Free T4 0.72 ng/dL (0.76-1.46) L 03/16/19 17:05 PTH Intact 329.9 pg/mL (15-65) H 03/25/19 05:00 Urine Color Kathy (Yellow) 04/05/19 16:50 Urine Turbidity Cloudy (Clear) 04/05/19 16:50 Urine pH 5.0 (5.0-7.0) 04/05/19 16:50 Ur Specific [place] 1.018 (1.003-1.030) 04/05/19 16:50 Urine Protein 100 mg/dl mg/dL (Negative) 04/05/19 16:50 Urine Glucose (UA) Neg mg/dL (Negative) 04/05/19 16:50 Urine Ketones Neg mg/dL (Negative) 04/05/19 16:50 Urine Blood Lg (Negative) 04/05/19 16:50 Urine Nitrite Neg (Negative) 04/05/19 16:50 Urine Bilirubin Neg (Negative) 04/05/19 16:50 Urine Urobilinogen < 2.0 mg/dL (<2.0) 04/05/19 16:50 Ur Leukocyte Esterase Tr (Negative) 04/05/19 16:50 Urine WBC (Auto) 40.0 /HPF (0.0-6.0) H 04/05/19 16:50 Urine RBC (Auto) > 182.0 /HPF (0.0-6.0) 04/05/19 16:50 U Epithel Cells (Auto) < 1.0 /HPF (0-13.0) 03/17/19 16:05 Amorphous Crystals 1+ 04/05/19 16:50 Urine Mucus Few /HPF 03/17/19 16:05 Urine Sperm 2+ /HPF (TREE DEADENER) 03/17/19 16:05 Urine Eosinophils None seen (None Seen) 03/17/19 16:05 Urine Creatinine 106.6 mg/dL (0.1-20.0) H 03/17/19 16:05 Urine Sodium 95 mmol/L 03/17/19 16:05 Vancomycin Trough 11.5 ug/mL (5.0-20.0) 03/18/19 13:19 Random Vancomycin 16.6 ug/mL (0-40.0) 03/30/19 04:31 Salicylates < 0.3 mg/dL (2.8-20.0) L 03/16/19 17:05 Urine Opiates Screen Presumptive negative 03/17/19 16:05 Urine Methadone Screen Presumptive negative 03/17/19 16:05 Acetaminophen < 5.0 ug/mL (10.0-30.0) L 03/16/19 17:05 Ur Barbiturates Screen Presumptive negative 03/17/19 16:05 Ur Phencyclidine Scrn Presumptive negative 03/17/19 16:05 Ur Amphetamines Screen Presumptive negative 03/17/19 16:05 U Benzodiazepines Scrn Presumptive positive 03/17/19 16:05 Urine Cocaine Screen Presumptive negative 03/17/19 16:05 U Marijuana (THC) Screen Presumptive negative 03/17/19 16:05 Drugs of Abuse Note Disclamer 03/17/19 16:05 Plasma/Serum Alcohol < 0.01 % (0-0.07) 03/16/19 17:05 Hepatitis A IgM Ab Non-reactive (NonReactive) 03/18/19 13:18 Hep Bs Antigen Non-reactive (Negative) 03/18/19 13:18 Hep B Core IgM Ab Non-reactive (NonReactive) 03/18/19 13:18 Hepatitis C Antibody Non-reactive (NonReactive) 03/18/19 13:18 HIV 1&2 Antibody Rapid Non react (Non React) 03/17/19 11:52 HIV P24 Antigen Non react (Non React) 03/17/19 11:52 Influenza A (Rapid) Negative (Negative) 03/17/19 17:00 Influenza B (Rapid) Negative (Negative) 03/17/19 17:00 Group A Strep Rapid Negative (Negative) 03/17/19 17:00 Miscellaneous Test Flexitest 1 03/21/19 12:00 Blood Type A POSITIVE 04/02/19 16:34 Antibody Screen Negative 04/02/19 16:34 Crossmatch See Detail 04/02/19 16:34 Active Medications - Current Medications Current Medications: Generic Name Dose Route Start Last Admin Trade Name Freq PRN Reason Stop Dose Admin Acetaminophen 650 mg 04/02/19 23:26 04/06/19 00:22 Tylenol PO 650 mg Q4H PRN Administration Pain, Mild (1-3),temp>100.5 Albuterol 2.5 mg 03/29/19 13:08 Proventil IH Q4HRT PRN Shortness Of Breath Amiodarone HCl 400 mg 04/04/19 12:00 04/08/19 08:00 Cordarone PO 400 mg TID PAOLO Administration Lipase/Protease/Amylase 1 each 03/17/19 14:45 Pancreaze 10,500 Unit FEEDTUBE PRN PRN For Clogged Feeding Tube Calcium Acetate 1,334 mg 03/31/19 14:00 04/08/19 08:00 Phoslo PO 1,334 mg TID PAOLO Administration Dextrose 50 gm 03/19/19 18:39 03/26/19 23:26 D50w (25gm) Vial IV 50 gm PRN PRN Administration Hypoglycemia Epoetin Jet 20,000 unit 03/31/19 10:15 04/06/19 10:41 Procrit SUB-Q 20,000 unit NEYMAR PRN Administration hemodialysis Fentanyl 50 mcg 03/26/19 12:00 04/05/19 14:47 Sublimaze IV 50 mcg Q1H PRN Administration Pain, Moderate (4-6) Hydrophilic Ointment 1 applic 03/16/19 15:50 Vaseline Lip Therapy TP Q2HR PRN Dry Lips Phenylephrine HCl 100 mg/ 100 mls @ 3 mls/hr 03/17/19 02:30 03/19/19 18:48 Sodium Chloride IV Infused TITR PAOLO Titration Protocol 50 MCG/MIN Norepinephrine 4 mg in 250 mls @ 7.5 mls/hr 03/27/19 22:16 04/03/19 15:00 Levophed Drip 4 Mg/Ns 250 Ml IV 0 mcg/min TITR PAOLO 0 mls/hr Titration Protocol 2 MCG/MIN Vasopressin 20 unit/ Sodium 101 mls @ 9.09 mls/hr 03/28/19 09:00 04/03/19 00:00 Chloride IV 0 units/min TITR PAOLO 0 mls/hr Titration Protocol 0.03 UNITS/MIN Sodium Chloride 100 mls @ 999 mls/hr 04/04/19 10:00 Nacl 0.9% IV NEYMAR PRN Hypotension Dextrose/Sodium Chloride 1,000 mls @ 42 mls/hr 04/07/19 19:00 04/07/19 19:48 D5/0.45ns IV 42 mls/hr DIRECT PAOLO Administration Lorazepam 2 mg 03/26/19 11:54 04/06/19 23:47 Ativan IV 2 mg Q1H PRN Administration Agitation Metoprolol Tartrate 12.5 mg 04/05/19 10:00 04/08/19 04:47 Lopressor PO 12.5 mg Q6H PAOLO Administration Multi-Ingred Cream/Lotion/Oil/Oint 1 applic 03/16/19 15:50 03/19/19 20:10 Artificial Tears Ophth Oint OU 1 applic Q4HR PRN Administration Dry Eye(s) Ondansetron HCl 4 mg 03/16/19 22:21 04/06/19 23:50 Zofran IV 4 mg Q8H PRN Administration Nausea And Vomiting Pantoprazole Sodium 40 mg 04/04/19 22:00 04/07/19 21:55 Protonix IV 40 mg BID PAOLO Administration Paricalcitol 2 mcg 03/30/19 10:00 04/07/19 09:05 Zemplar IV 2 mcg DAILY PAOLO Administration Simple Syrup 15 ml 03/17/19 14:45 03/26/19 23:19 Simple Syrup FEEDTUBE 15 ml PRN PRN Administration Hypoglycemia Simple Syrup 30 ml 03/17/19 14:45 Simple Syrup FEEDTUBE PRN PRN Hypoglycemia Sodium Bicarbonate 325 mg 03/17/19 14:45 Sodium Bicarbonate FEEDTUBE PRN PRN For Clogged Feeding Tube Nutrition/Malnutrition Assess - Dietary Evaluation Nutrition/Malnutrition Findings: Nutrition Notes Start: 03/17/19 14:22 Freq: Status: Active Protocol: Document 04/06/19 09:05 AIYANA (Rec: 04/06/19 09:34 AIYANA [email or web address]) Co-Sign 04/06/19 09:05 LM Nutrition Notes Initial or Follow up Reassessment Current Diagnosis Acute Kidney Injury Other Pertinent Diagnosis on HD, Septic shock,Multiple organ failure, encephalopathy, rhabdomyolysis Current Diet Nepro with Carbsteady at 55ml/ hr Labs/Tests BUN 64 Cr 8.2 Ca 7.3 Pertinent Medications Reviewed Height 6 ft Weight 148.5 kg [place] Body Weight (kg) 80.90 BMI 44.4 Weight change and time frame Wt change noted. Pt has edema. Subjective/Other Information TF running at 30ml/hr. Will increase 10ml per day for tolerance per MD Percent of energy/protein needs met: 62%/29% Burn Absent Trauma Absent Minimum of two criteria No #1 Nutrition Diagnosis Inadequate oral intake Diagnosis Progress(for reassessment Continues documentation) Is patient on ventilator? Yes Is Patient Ambulatory and/or Out of Bed No REE-([facility]-confined to bed) 2892.144 Kcal/Kg value to use for calculation 14 Approximate Energy Requirements Using 9 kcal/Kg Calculation Used for Recommendations Kcal/kg Additional Notes Protein Needs: 202g (2.5g/kg IBW 80.9) Fluid Needs: 1 ml/kcal or per MD Nutrition Intervention Change Diet Order: Continue advancing TF Nutrition Support: Nepro 1.8 at 30ml/hr Water flush 130ml q4hr Kcal 1,296 Protein (gm) 58 Fluid (mL) 523 Goal #1 Advance TF to goal rate when medically feasible Goal #2 Meet at least 75% of energy and protein needs Anticipated Discharge Needs: Unable to determine at this time Follow-Up By: 04/09/19 Additional Comments F/U for TF advancement and goal rate
--- NOTE | 2019-04-08 12:21 | Progress Note ---
Assessment and Plan 1. Acute kidney injury: Vasomotor RUBEN in the setting of shock / volume depletion / Rhabdo. Baseline renal function is unknown. CT abdomen was negative for obstructive nephropathy. Monitor renal function. Renal prognosis is guarded. Avoid nephrotoxic agents. Meds dosage based on GFR. Patient was started on hemodialysis on 03/18/19 due to worsening metabolic acidosis and hyperkalemia. Hemodialysis: 03/18, 03/19, 03/20, 03/22, 03/23, 03/24, 03/26, 03/28, 03/29, 03/31, 04/02, 04/04, 04/06. 2. FEN: Hyperkalemia, improved. Hyponatremia, improved. Metabolic acidosis, on maintenance HD. Volume overload, UF with HD as tolerated. Hypocalcemia, likely multifactorial. On Phoslo and Zemplar. Monitor lytes. 3. Septic shock: Followed by ID. Currently off pressors. 4. Rhabdomyolysis: Improved. 5. SVT / V.tach: Followed by Cards. 6. Respiratory failure: Extubated. 7. Severe anemia: S/p PRBC. On Epogen. 8. A.fib with RVR. 9. Elevated transaminases. 10. Encephalopathy. Examination: General appearance: well-developed, appears stated age, obese HEENT: Atraumatic EYES: Pupils reacting to light Neck: supple Respiratory: CTAB, decreased breath sounds Cardiology: irregular, S1S2 heard, no murmur Gastrointestinal: no tenderness, obese, BS heard Integumentary: no rash noted Neurologic: follows command, conversing, MS is improving Ext: 1+ edema of all 4 extremities Hemodialysis access: R IJ temp catheter Subjective Date of service: 04/08/19 Principal diagnosis: C-P arrest, resp failure, PAF w RVR, ARF, Septic shock, VT, Asp pneumonia Interval history: Patient was seen and examined at the bedside. Objective - Vital Signs Vital signs: Vital Signs - 12hr 04/08/19 04/08/19 04/08/19 00:30 01:00 01:30 Temperature Pulse Rate 76 76 77 Respiratory 33 H 29 H 24 Rate Blood Pressure 127/71 126/67 125/68 O2 Sat by Pulse 99 100 100 Oximetry 04/08/19 04/08/19 04/08/19 02:00 02:30 03:00 Temperature Pulse Rate 78 75 77 Respiratory 31 H 32 H 37 H Rate Blood Pressure 119/66 125/70 136/71 O2 Sat by Pulse 98 99 97 Oximetry 04/08/19 04/08/19 04/08/19 03:21 03:30 04:00 Temperature 98.8 F Pulse Rate 79 77 Respiratory 36 H 34 H Rate Blood Pressure 128/72 133/71 O2 Sat by Pulse 98 98 Oximetry 04/08/19 04/08/19 04/08/19 04:30 04:47 05:00 Temperature Pulse Rate 77 75 76 Respiratory 32 H 33 H Rate Blood Pressure 130/73 129/69 131/73 O2 Sat by Pulse 99 98 Oximetry 04/08/19 04/08/19 04/08/19 05:30 06:00 06:30 Temperature Pulse Rate 78 78 77 Respiratory 35 H 36 H 15 Rate Blood Pressure 132/72 133/70 124/79 O2 Sat by Pulse 97 97 97 Oximetry 04/08/19 04/08/19 04/08/19 07:00 07:30 07:48 Temperature Pulse Rate 80 109 H Respiratory 38 H 34 H Rate Blood Pressure 111/67 107/65 O2 Sat by Pulse 100 100 100 Oximetry 04/08/19 08:00 Temperature 98.4 F Pulse Rate Respiratory Rate Blood Pressure O2 Sat by Pulse Oximetry - Lab 04/07/19 05:40 04/07/19 05:40 Most recent lab results ABG pH 7.388 pH Units (7.350-7.450) 04/06/19 05:20 ABG pCO2 38.5 mm Hg 04/06/19 05:20 ABG pO2 104.0 mm Hg (80.0-90.0) H 04/06/19 05:20 ABG HCO3 22.6 mmol/L (20.0-26.0) 04/06/19 05:20 ABG O2 Saturation 97.8 % (95.0-99.0) 04/06/19 05:20 Calcium 7.9 mg/dL (8.4-10.2) L 04/07/19 05:40 Phosphorus 5.80 mg/dL (2.5-4.5) H D 04/03/19 08:30 Magnesium 1.90 mg/dL (1.7-2.3) 03/31/19 15:07 Urine Creatinine 106.6 mg/dL (0.1-20.0) H 03/17/19 16:05 Urine Sodium 95 mmol/L 03/17/19 16:05 Medications & Allergies - Medications Allergies/Adverse Reactions: Allergies No Known Allergies Allergy (Unverified 03/16/19 17:17) Home Medications: Home Medications Medication Instructions Recorded Confirmed Last Taken Type Unobtainable 03/18/19 03/18/19 Unknown History Active Medications: Generic Name Dose Route Start Last Admin Trade Name Freq PRN Reason Stop Dose Admin Acetaminophen 650 mg 04/02/19 23:26 04/06/19 00:22 Tylenol PO 650 mg Q4H PRN Administration Pain, Mild (1-3),temp>100.5 Albuterol 2.5 mg 03/29/19 13:08 Proventil IH Q4HRT PRN Shortness Of Breath Amiodarone HCl 400 mg 04/04/19 12:00 04/08/19 08:00 Cordarone PO 400 mg TID PAOLO Administration Lipase/Protease/Amylase 1 each 03/17/19 14:[address] 10,500 Unit FEEDTUBE PRN PRN For Clogged Feeding Tube Calcium Acetate 1,334 mg 03/31/19 14:00 04/08/19 08:00 Phoslo PO 1,334 mg TID PAOLO Administration Dextrose 50 gm 03/19/19 18:39 03/26/19 23:26 D50w (25gm) Vial IV 50 gm PRN PRN Administration Hypoglycemia Epoetin Jet 20,000 unit 03/31/19 10:15 04/06/19 10:41 Procrit SUB-Q 20,000 unit NEYMAR PRN Administration hemodialysis Fentanyl 50 mcg 03/26/19 12:00 04/05/19 14:47 Sublimaze IV 50 mcg Q1H PRN Administration Pain, Moderate (4-6) Hydrophilic Ointment 1 applic 03/16/19 15:50 Vaseline Lip Therapy TP Q2HR PRN Dry Lips Phenylephrine HCl 100 mg/ 100 mls @ 3 mls/hr 03/17/19 02:30 03/19/19 18:48 Sodium Chloride IV Infused TITR PAOLO Titration Protocol 50 MCG/MIN Norepinephrine 4 mg in 250 mls @ 7.5 mls/hr 03/27/19 22:16 04/03/19 15:00 Levophed Drip 4 Mg/Ns 250 Ml IV 0 mcg/min TITR PAOLO 0 mls/hr Titration Protocol 2 MCG/MIN Vasopressin 20 unit/ Sodium 101 mls @ 9.09 mls/hr 03/28/19 09:00 04/03/19 00:00 Chloride IV 0 units/min TITR PAOLO 0 mls/hr Titration Protocol 0.03 UNITS/MIN Sodium Chloride 100 mls @ 999 mls/hr 04/04/19 10:00 Nacl 0.9% IV NEYMAR PRN Hypotension Dextrose/Sodium Chloride 1,000 mls @ 42 mls/hr 04/07/19 19:00 04/07/19 19:48 D5/0.45ns IV 42 mls/hr DIRECT PAOLO Administration Lorazepam 2 mg 03/26/19 11:54 04/06/19 23:47 Ativan IV 2 mg Q1H PRN Administration Agitation Metoprolol Tartrate 12.5 mg 04/05/19 10:00 04/08/19 04:47 Lopressor PO 12.5 mg Q6H PAOLO Administration Multi-Ingred Cream/Lotion/Oil/Oint 1 applic 03/16/19 15:50 03/19/19 20:10 Artificial Tears Ophth Oint OU 1 applic Q4HR PRN Administration Dry Eye(s) Ondansetron HCl 4 mg 03/16/19 22:21 04/06/19 23:50 Zofran IV 4 mg Q8H PRN Administration Nausea And Vomiting Pantoprazole Sodium 40 mg 04/04/19 22:00 04/08/19 10:00 Protonix IV 40 mg BID APOLO Administration Paricalcitol 2 mcg 03/30/19 10:00 04/08/19 10:00 Zemplar IV 2 mcg DAILY PAOLO Administration Simple Syrup 15 ml 03/17/19 14:45 03/26/19 23:19 Simple Syrup FEEDTUBE 15 ml PRN PRN Administration Hypoglycemia Simple Syrup 30 ml 03/17/19 14:45 Simple Syrup FEEDTUBE PRN PRN Hypoglycemia Sodium Bicarbonate 325 mg 03/17/19 14:45 Sodium Bicarbonate FEEDTUBE PRN PRN For Clogged Feeding Tube
--- NOTE | 2019-04-08 12:51 | Progress Note ---
Assessment and Plan Continue loading doses of amiodarone for now. - Patient Problems (1) Cardiopulmonary arrest Current Visit: Yes Status: Acute (2) Acute respiratory failure Current Visit: Yes Status: Acute (3) Paroxysmal atrial fibrillation with RVR Current Visit: Yes Status: Acute (4) Septic shock Current Visit: Yes Status: Acute (5) Ventricular tachycardia Current Visit: Yes Status: Acute (6) Metabolic encephalopathy Current Visit: Yes Status: Acute (7) Acute renal failure Current Visit: Yes Status: Acute (8) Thrombocytopenia Current Visit: Yes Status: Acute (9) GI bleed Current Visit: Yes Status: Acute (10) DVT (deep venous thrombosis) Current Visit: Yes Status: Acute Subjective Date of service: 04/08/19 Principal diagnosis: C-P arrest, resp failure, PAF w RVR, ARF, Septic shock, VT, Asp pneumonia Interval history: He is awake and quite communicative. He self extubated yesterday. On the monitor, he is in sinus rhythm with frequent paroxysms of AF with RVR. Objective Vital Signs Last Vital Signs Temp 98.4 F 04/08/19 08:00 Pulse 109 H 04/08/19 07:30 Resp 34 H 04/08/19 07:30 BP 107/65 04/08/19 07:30 Pulse Ox 100 04/08/19 07:48 - Physical Examination General: No Apparent Distress HEENT: Positive: EOMI, Normocephaly, Mucus Membranes Moist Neck: Positive: neck supple, trachea midline Cardiac: Positive: Reg Rate and Rhythm, S1/S2 Lungs: Positive: Rhonchi Neuro: Positive: Grossly Intact, Other (Awake, responsive) Abdomen: Positive: Soft, Active Bowel Sounds. Negative: Tender /Rectal: Other (deferred) Skin: Positive: Clear. Negative: Rash Musculoskeletal: Normal Range of Motion Extremities: Present: normal - Imaging and Cardiology Echo: report reviewed ( EF 40-45%, impaired relaxation. ) - Telemetry EKG Rhythm: Sinus Rhythm - EKG Sinus rhythms and dysrhythmias: sinus rhythm Supraventricular dysrhythmia: atrial fibrillation (PAF with RVR) - Allied health notes Allied health notes reviewed: RT
--- NOTE | 2019-04-08 14:31 | Progress Note ---
Assessment and Plan Severe sepsis with shock. Right axilla abscess versus localized pannus/fatty collection. Acute hypoxemic respiratory failure, s/p mechanical ventilator support. Likely aspiration pneumonia, bilateral. Morbid obesity. Acute kidney injury secondary to ATN on HD. Leukocytosis-resolved Elevated serum transaminases/possible shock liver. Acute encephalopathy, toxic metabolic Thrombocytopenia- etiology, multifactorial- improving RIJ non-occlusive thrombus Oropharyngeal dysphagia Acute blood loss anemia with hemorrhagic shock- resolved -Discussed the need fro adherence to nocturnal BIPAP -wean FiO2 for O2 sats>92% -NNPS to evaluate and treat -Monitor QTc as he is on multiple medications that can prolong QT -Antibiotics per ID - continue HD/UF per nephrology -Aspiration precautions, HOB >40 - prn analgesia per CPOT score - prn supportive blood transfusions to keep HgB > 7.0 - Monitor hemodynamics closely - continue mobility protocols and off loading as tolerated for pressure ulcer prevention - continue to avoid nephrotoxins, adjust all medications for GFR and CRCL - continue GI & VTE prophylaxis ( SCDs and therapeutic pantoprazole, dosed for renal function) - accuchecks with glycemic control per SSI for target BG of 140-180 mg/dl - avoid hypoglycemia -PT/OT/NNPS -Continue to monitor in [facility] ICU overnight, plan to transfer to IM in the morning if he remains stable. CONDITION: IMPROVING PROGNOSIS: FAIR CODE STATUS: DNAR Subjective Date of service: 04/08/19 Principal diagnosis: C-P arrest, resp failure, PAF w RVR, ARF, Septic shock, VT, Asp pneumonia Interval history: Patient is seen today for: Severe sepsis with shock; Acute hypoxemic respiratory failure; Aspiration pneumonia; Morbid obesity; Rhabdomyolysis; Acute kidney injury; Morbid obesity; Elevated serum transaminases/possible shock liver; Acute encephalopathy (Toxic/Met) Seen and examined at bedside; 24hour events reviewed; nursing and respiratory care staff consulted; no adverse overnight events reported to me; resting peacefully in bed; remains off vasopressors; Extubated yesterday, doing well. Did not use BIPAP last night. Was able to tolerate his pills with water this morning. No fevers. Vitals, labs, medications, chart and imaging reviewed. " I don't remember anything. I know I was very sick for a few days" Objective Vital Signs - 12hr 04/08/19 04/08/19 04/08/19 03:00 03:21 03:30 Temperature 98.8 F Pulse Rate 77 79 Pulse Rate [ From Monitor] Respiratory 37 H 36 H Rate Blood Pressure 136/71 128/72 O2 Sat by Pulse 97 98 Oximetry 04/08/19 04/08/19 04/08/19 04:00 04:30 04:47 Temperature Pulse Rate 77 77 75 Pulse Rate [ From Monitor] Respiratory 34 H 32 H Rate Blood Pressure 133/71 130/73 129/69 O2 Sat by Pulse 98 99 Oximetry 04/08/19 04/08/19 04/08/19 05:00 05:30 06:00 Temperature Pulse Rate 76 78 78 Pulse Rate [ From Monitor] Respiratory 33 H 35 H 36 H Rate Blood Pressure 131/73 132/72 133/70 O2 Sat by Pulse 98 97 97 Oximetry 04/08/19 04/08/19 04/08/19 06:30 07:00 07:30 Temperature Pulse Rate 77 80 109 H Pulse Rate [ From Monitor] Respiratory 15 38 H 34 H Rate Blood Pressure 124/79 111/67 107/65 O2 Sat by Pulse 97 100 100 Oximetry 04/08/19 04/08/19 04/08/19 07:48 08:00 08:30 Temperature 98.4 F Pulse Rate 110 H 120 H Pulse Rate [ 78 From Monitor] Respiratory 34 H 44 H Rate Blood Pressure 101/62 107/65 O2 Sat by Pulse 100 96 97 Oximetry 04/08/19 04/08/19 04/08/19 09:00 09:31 10:00 Temperature Pulse Rate 95 H 117 H 79 Pulse Rate [ From Monitor] Respiratory 33 H 41 H Rate Blood Pressure 112/67 124/69 116/61 O2 Sat by Pulse 98 99 Oximetry 04/08/19 04/08/19 04/08/19 10:01 10:31 11:01 Temperature Pulse Rate 97 H 88 145 H Pulse Rate [ From Monitor] Respiratory 41 H 36 H 41 H Rate Blood Pressure 121/70 118/55 126/70 O2 Sat by Pulse 97 96 97 Oximetry 04/08/19 04/08/19 04/08/19 11:30 12:00 12:31 Temperature 99.4 F Pulse Rate 113 H 127 H 123 H Pulse Rate [ 89 From Monitor] Respiratory 25 H 36 H 34 H Rate Blood Pressure 128/70 117/70 134/76 O2 Sat by Pulse 96 96 96 Oximetry 04/08/19 04/08/19 04/08/19 13:00 13:01 13:31 Temperature Pulse Rate 77 121 H 121 H Pulse Rate [ From Monitor] Respiratory 26 H 34 H Rate Blood Pressure 122/72 117/66 O2 Sat by Pulse 95 95 Oximetry 04/08/19 14:01 Temperature Pulse Rate 135 H Pulse Rate [ From Monitor] Respiratory 42 H Rate Blood Pressure 127/71 O2 Sat by Pulse 95 Oximetry Constitutional: no acute distress, alert Eyes: non-icteric ENT: oropharynx moist, other ( ulcers over his upper lip) Neck: supple, no lymphadenopathy, no JVD, other (large neck circumference, RIJ trialysis catheter) Effort: mildly labored Ascultation: Bilateral: diminished breath sounds, rales, rhonchi Percussion: Bilateral: not dull Cardiovascular: regular rate and rhythm, other ( S1,S2, no murmurs) Gastrointestinal: normoactive bowel sounds, soft, non-tender Integumentary: normal, other (blisters with some weeping over the extremities) Extremities: no cyanosis, pink and warm, pulses normal, no ischemia or petechiae, edema Neurologic: normal mental status, non-focal exam (grossly), pupils equal and round, CN II-XII normal, other (obeys commands, globally weak) Psychiatric: mood appropriate, affect normal CBC and BMP: 04/07/19 05:40 04/07/19 05:40 ABG, PT/INR, D-dimer: ABG POC ABG pH 7.401 (7.35-7.45) 04/07/19 12:57 ABG pH 7.388 pH Units (7.350-7.450) 04/06/19 05:20 POC ABG pCO2 41.5 (35-45) 04/07/19 12:57 ABG pCO2 38.5 mm Hg 04/06/19 05:20 POC ABG pO2 107 (80-105) H 04/07/19 12:57 ABG pO2 104.0 mm Hg (80.0-90.0) H 04/06/19 05:20 POC ABG HCO3 25.7 (22-26 mml/L) 04/07/19 12:57 POC ABG Total CO2 27 (23-27mmol/L) 04/07/19 12:57 POC ABG O2 Sat 98 04/07/19 12:57 ABG O2 Saturation 97.8 % (95.0-99.0) 04/06/19 05:20 PT/INR, D-dimer PT 15.3 Sec. (12.2-14.9) H 03/29/19 11:48 INR 1.24 (0.87-1.13) H 03/29/19 11:48 D-Dimer 4845.98 ng/mlDDU (0-234) H 03/28/19 12:00 Abnormal lab findings: Abnormal Labs 03/16/19 03/16/19 03/16/19 15:32 16:03 16:05 WBC 27.0 H RBC 5.55 H Hgb 15.7 H Hct 47.1 H RDW Plt Count 75 L Lymph % (Auto) [place] % (Auto) Lymph # Seg Neutrophils % Seg Neuts % (Manual) 85.0 H Lymphocytes % (Manual) 2.0 L Monocytes % (Manual) Nucleated RBC % Seg Neutrophils # Seg Neutrophils # Man 23.0 H Lymphocytes # (Manual) 0.5 L Monocytes # (Manual) PT INR D-Dimer Heparin Anti-Xa Level POC ABG pH ABG pH POC ABG pCO2 POC ABG pO2 ABG pO2 ABG HCO3 ABG O2 Saturation ABG Base Excess ABG Hemoglobin Oxyhemoglobin Sodium 127 L Potassium Chloride 87.8 L Carbon Dioxide 17 L BUN 49 H Creatinine 5.8 H Glucose 150 H POC Glucose 118 H Lactic Acid Calcium 6.6 L Ionized Calcium Phosphorus Magnesium 1.10 L Iron TIBC Ferritin Total Bilirubin Direct Bilirubin AST ALT Alkaline Phosphatase Total Creatine Kinase 98512 H CK-MB (CK-2) Troponin T C-Reactive Protein Total Protein Albumin Triglycerides LDL Cholesterol Direct HDL Cholesterol Free T4 PTH Intact Urine WBC (Auto) Urine Creatinine Salicylates Acetaminophen Crossmatch 03/16/19 03/16/19 03/16/19 16:59 17:05 17:05 WBC RBC Hgb Hct RDW Plt Count Lymph % (Auto) [place] % (Auto) Lymph # Seg Neutrophils % Seg Neuts % (Manual) Lymphocytes % (Manual) Monocytes % (Manual) Nucleated RBC % Seg Neutrophils # Seg Neutrophils # Man Lymphocytes # (Manual) Monocytes # (Manual) PT INR D-Dimer Heparin Anti-Xa Level POC ABG pH 7.297 L ABG pH POC ABG pCO2 33.0 L POC ABG pO2 ABG pO2 ABG HCO3 ABG O2 Saturation ABG Base Excess ABG Hemoglobin Oxyhemoglobin Sodium Potassium Chloride Carbon Dioxide BUN Creatinine Glucose POC Glucose Lactic Acid Calcium Ionized Calcium Phosphorus Magnesium Iron TIBC Ferritin Total Bilirubin Direct Bilirubin AST ALT Alkaline Phosphatase Total Creatine Kinase 09646 H CK-MB (CK-2) 83.1 H Troponin T C-Reactive Protein Total Protein Albumin Triglycerides LDL Cholesterol Direct HDL Cholesterol Free T4 0.72 L PTH Intact Urine WBC (Auto) Urine Creatinine Salicylates Acetaminophen Crossmatch 03/16/19 03/16/19 03/16/19 17:05 17:05 17:05 WBC RBC Hgb Hct RDW Plt Count Lymph % (Auto) [place] % (Auto) Lymph # Seg Neutrophils % Seg Neuts % (Manual) Lymphocytes % (Manual) Monocytes % (Manual) Nucleated RBC % Seg Neutrophils # Seg Neutrophils # Man Lymphocytes # (Manual) Monocytes # (Manual) PT INR D-Dimer Heparin Anti-Xa Level POC ABG pH ABG pH POC ABG pCO2 POC ABG pO2 ABG pO2 ABG HCO3 ABG O2 Saturation ABG Base Excess ABG Hemoglobin Oxyhemoglobin Sodium Potassium Chloride Carbon Dioxide BUN Creatinine Glucose POC Glucose Lactic Acid 5.10 H* Calcium Ionized Calcium Phosphorus Magnesium Iron TIBC Ferritin Total Bilirubin Direct Bilirubin AST ALT Alkaline Phosphatase Total Creatine Kinase CK-MB (CK-2) Troponin T C-Reactive Protein Total Protein Albumin Triglycerides LDL Cholesterol Direct HDL Cholesterol Free T4 PTH Intact Urine WBC (Auto) Urine Creatinine Salicylates < 0.3 L Acetaminophen < 5.0 L Crossmatch 03/16/19 03/16/19 03/16/19 17:05 17:05 20:35 WBC RBC Hgb Hct RDW Plt Count Lymph % (Auto) [place] % (Auto) Lymph # Seg Neutrophils % Seg Neuts % (Manual) Lymphocytes % (Manual) Monocytes % (Manual) Nucleated RBC % Seg Neutrophils # Seg Neutrophils # Man Lymphocytes # (Manual) Monocytes # (Manual) PT 15.9 H INR 1.30 H D-Dimer Heparin Anti-Xa Level POC ABG pH ABG pH POC ABG pCO2 POC ABG pO2 ABG pO2 ABG HCO3 ABG O2 Saturation ABG Base Excess ABG Hemoglobin Oxyhemoglobin Sodium Potassium Chloride Carbon Dioxide BUN Creatinine Glucose POC Glucose Lactic Acid 3.30 H* Calcium Ionized Calcium Phosphorus Magnesium Iron TIBC Ferritin Total Bilirubin 6.20 H Direct Bilirubin 5.9 H AST 800 H ALT 120 H Alkaline Phosphatase Total Creatine Kinase CK-MB (CK-2) Troponin T C-Reactive Protein Total Protein 4.4 L Albumin 2.4 L Triglycerides LDL Cholesterol Direct HDL Cholesterol Free T4 PTH Intact Urine WBC (Auto) Urine Creatinine Salicylates Acetaminophen Crossmatch 03/16/19 03/16/19 03/16/19 21:45 22:32 Unknown WBC RBC Hgb Hct RDW Plt Count Lymph % (Auto) [place] % (Auto) Lymph # Seg Neutrophils % Seg Neuts % (Manual) Lymphocytes % (Manual) Monocytes % (Manual) Nucleated RBC % Seg Neutrophils # Seg Neutrophils # Man Lymphocytes # (Manual) Monocytes # (Manual) PT INR D-Dimer Heparin Anti-Xa Level POC ABG pH ABG pH POC ABG pCO2 POC ABG pO2 ABG pO2 ABG HCO3 ABG O2 Saturation ABG Base Excess ABG Hemoglobin Oxyhemoglobin Sodium Potassium Chloride Carbon Dioxide BUN Creatinine Glucose POC Glucose Lactic Acid 3.30 H* 3.00 H* Calcium Ionized Calcium Phosphorus Magnesium Iron TIBC Ferritin Total Bilirubin Direct Bilirubin AST ALT Alkaline Phosphatase Total Creatine Kinase CK-MB (CK-2) Troponin T 0.047 H D C-Reactive Protein Total Protein Albumin Triglycerides 395 H LDL Cholesterol Direct 10 L HDL Cholesterol 7 L Free T4 PTH Intact Urine WBC (Auto) Urine Creatinine Salicylates Acetaminophen Crossmatch 03/17/19 03/17/19 03/17/19 03:45 03:45 03:45 WBC RBC Hgb Hct RDW Plt Count Lymph % (Auto) [place] % (Auto) Lymph # Seg Neutrophils % Seg Neuts % (Manual) Lymphocytes % (Manual) Monocytes % (Manual) Nucleated RBC % Seg Neutrophils # Seg Neutrophils # Man Lymphocytes # (Manual) Monocytes # (Manual) PT INR D-Dimer Heparin Anti-Xa Level POC ABG pH ABG pH POC ABG pCO2 POC ABG pO2 ABG pO2 ABG HCO3 ABG O2 Saturation ABG Base Excess ABG Hemoglobin Oxyhemoglobin Sodium 131 L Potassium Chloride 88.9 L Carbon Dioxide BUN 53 H Creatinine 7.1 H Glucose POC Glucose Lactic Acid 4.10 H* Calcium 5.4 L* D Ionized Calcium Phosphorus 7.30 H Magnesium 1.60 L Iron TIBC Ferritin Total Bilirubin 5.90 H Direct Bilirubin AST 801 H ALT 109 H Alkaline Phosphatase Total Creatine Kinase 56678 H 97906 H CK-MB (CK-2) 41.5 H Troponin T 0.054 H C-Reactive Protein Total Protein 4.5 L Albumin 2.0 L Triglycerides LDL Cholesterol Direct HDL Cholesterol Free T4 PTH Intact Urine WBC (Auto) Urine Creatinine Salicylates Acetaminophen Crossmatch 03/17/19 03/17/19 03/17/19 05:47 07:16 07:16 WBC RBC Hgb Hct RDW Plt Count Lymph % (Auto) [place] % (Auto) Lymph # Seg Neutrophils % Seg Neuts % (Manual) Lymphocytes % (Manual) Monocytes % (Manual) Nucleated RBC % Seg Neutrophils # Seg Neutrophils # Man Lymphocytes # (Manual) Monocytes # (Manual) PT INR D-Dimer Heparin Anti-Xa Level POC ABG pH 7.193 L ABG pH POC ABG pCO2 45.2 H POC ABG pO2 65 L ABG pO2 ABG HCO3 ABG O2 Saturation ABG Base Excess ABG Hemoglobin Oxyhemoglobin Sodium Potassium Chloride Carbon Dioxide BUN Creatinine Glucose POC Glucose Lactic Acid 5.50 H* Calcium Ionized Calcium Phosphorus Magnesium Iron TIBC Ferritin Total Bilirubin Direct Bilirubin AST ALT Alkaline Phosphatase Total Creatine Kinase 73979 H CK-MB (CK-2) 54.3 H Troponin T 0.058 H C-Reactive Protein Total Protein Albumin Triglycerides LDL Cholesterol Direct HDL Cholesterol Free T4 PTH Intact Urine WBC (Auto) Urine Creatinine Salicylates Acetaminophen Crossmatch 03/17/19 03/17/19 03/17/19 11:52 12:51 13:01 WBC RBC Hgb Hct RDW Plt Count Lymph % (Auto) [place] % (Auto) Lymph # Seg Neutrophils % Seg Neuts % (Manual) Lymphocytes % (Manual) Monocytes % (Manual) Nucleated RBC % Seg Neutrophils # Seg Neutrophils # Man Lymphocytes # (Manual) Monocytes # (Manual) PT INR D-Dimer Heparin Anti-Xa Level POC ABG pH 7.154 L ABG pH POC ABG pCO2 34.3 L POC ABG pO2 73 L ABG pO2 ABG HCO3 ABG O2 Saturation ABG Base Excess ABG Hemoglobin Oxyhemoglobin Sodium Potassium Chloride Carbon Dioxide BUN Creatinine Glucose POC Glucose 60 L Lactic Acid 8.20 H* Calcium Ionized Calcium Phosphorus Magnesium Iron TIBC Ferritin Total Bilirubin Direct Bilirubin AST ALT Alkaline Phosphatase Total Creatine Kinase CK-MB (CK-2) Troponin T C-Reactive Protein Total Protein Albumin Triglycerides LDL Cholesterol Direct HDL Cholesterol Free T4 PTH Intact Urine WBC (Auto) Urine Creatinine Salicylates Acetaminophen Crossmatch 03/17/19 03/17/19 03/17/19 14:37 14:37 14:37 WBC 29.3 H RBC Hgb Hct RDW 15.8 H Plt Count 45 L Lymph % (Auto) [place] % (Auto) Lymph # Seg Neutrophils % Seg Neuts % (Manual) 81.0 H Lymphocytes % (Manual) 1.0 L Monocytes % (Manual) 15.0 H Nucleated RBC % Seg Neutrophils # Seg Neutrophils # Man 23.7 H Lymphocytes # (Manual) 0.3 L Monocytes # (Manual) 4.4 H PT INR D-Dimer Heparin Anti-Xa Level POC ABG pH ABG pH POC ABG pCO2 POC ABG pO2 ABG pO2 ABG HCO3 ABG O2 Saturation ABG Base Excess ABG Hemoglobin Oxyhemoglobin Sodium Potassium Chloride Carbon Dioxide BUN Creatinine Glucose POC Glucose Lactic Acid 4.90 H* Calcium Ionized Calcium Phosphorus Magnesium Iron TIBC Ferritin Total Bilirubin Direct Bilirubin AST ALT Alkaline Phosphatase Total Creatine Kinase CK-MB (CK-2) Troponin T C-Reactive Protein 24.90 H Total Protein Albumin Triglycerides LDL Cholesterol Direct HDL Cholesterol Free T4 PTH Intact Urine WBC (Auto) Urine Creatinine Salicylates Acetaminophen Crossmatch 03/17/19 03/17/19 03/17/19 16:05 16:05 17:02 WBC RBC Hgb Hct RDW Plt Count Lymph % (Auto) [place] % (Auto) Lymph # Seg Neutrophils % Seg Neuts % (Manual) Lymphocytes % (Manual) Monocytes % (Manual) Nucleated RBC % Seg Neutrophils # Seg Neutrophils # Man Lymphocytes # (Manual) Monocytes # (Manual) PT INR D-Dimer Heparin Anti-Xa Level POC ABG pH 7.183 L ABG pH POC ABG pCO2 POC ABG pO2 65 L ABG pO2 ABG HCO3 ABG O2 Saturation ABG Base Excess ABG Hemoglobin Oxyhemoglobin Sodium Potassium Chloride Carbon Dioxide BUN Creatinine Glucose POC Glucose Lactic Acid Calcium Ionized Calcium Phosphorus Magnesium Iron TIBC Ferritin Total Bilirubin Direct Bilirubin AST ALT Alkaline Phosphatase Total Creatine Kinase CK-MB (CK-2) Troponin T C-Reactive Protein Total Protein Albumin Triglycerides LDL Cholesterol Direct HDL Cholesterol Free T4 PTH Intact Urine WBC (Auto) 30.0 H Urine Creatinine 106.6 H Salicylates Acetaminophen Crossmatch 03/18/19 03/18/19 03/18/19 05:12 05:16 05:53 WBC RBC Hgb Hct RDW Plt Count Lymph % (Auto) [place] % (Auto) Lymph # Seg Neutrophils % Seg Neuts % (Manual) Lymphocytes % (Manual) Monocytes % (Manual) Nucleated RBC % Seg Neutrophils # Seg Neutrophils # Man Lymphocytes # (Manual) Monocytes # (Manual) PT INR D-Dimer Heparin Anti-Xa Level POC ABG pH 7.257 L ABG pH POC ABG pCO2 31.6 L POC ABG pO2 69 L ABG pO2 ABG HCO3 ABG O2 Saturation ABG Base Excess ABG Hemoglobin Oxyhemoglobin Sodium Potassium Chloride Carbon Dioxide BUN Creatinine Glucose POC Glucose 141 H Lactic Acid 5.00 H* Calcium Ionized Calcium Phosphorus Magnesium Iron TIBC Ferritin Total Bilirubin Direct Bilirubin AST ALT Alkaline Phosphatase Total Creatine Kinase CK-MB (CK-2) Troponin T C-Reactive Protein Total Protein Albumin Triglycerides LDL Cholesterol Direct HDL Cholesterol Free T4 PTH Intact Urine WBC (Auto) Urine Creatinine Salicylates Acetaminophen Crossmatch 03/18/19 03/18/19 03/18/19 06:57 08:40 08:40 WBC 31.7 H RBC Hgb Hct RDW 15.5 H Plt Count 35 L Lymph % (Auto) [place] % (Auto) Lymph # Seg Neutrophils % Seg Neuts % (Manual) Lymphocytes % (Manual) Monocytes % (Manual) Nucleated RBC % Seg Neutrophils # Seg Neutrophils # Man Lymphocytes # (Manual) Monocytes # (Manual) PT INR D-Dimer Heparin Anti-Xa Level POC ABG pH ABG pH POC ABG pCO2 POC ABG pO2 ABG pO2 ABG HCO3 ABG O2 Saturation ABG Base Excess ABG Hemoglobin Oxyhemoglobin Sodium 132 L Potassium 5.5 H D Chloride 88.5 L Carbon Dioxide 18 L BUN 71 H Creatinine 8.1 H Glucose 205 H POC Glucose Lactic Acid 5.00 H* Calcium 4.1 L* D Ionized Calcium Phosphorus Magnesium 2.40 H Iron TIBC Ferritin Total Bilirubin 7.50 H Direct Bilirubin AST 1088 H ALT 159 H Alkaline Phosphatase 190 H Total Creatine Kinase 216561 H CK-MB (CK-2) Troponin T C-Reactive Protein Total Protein 4.7 L Albumin 1.8 L Triglycerides LDL Cholesterol Direct HDL Cholesterol Free T4 PTH Intact Urine WBC (Auto) Urine Creatinine Salicylates Acetaminophen Crossmatch 03/18/19 03/18/19 03/18/19 12:33 12:50 13:19 WBC RBC Hgb Hct RDW Plt Count Lymph % (Auto) [place] % (Auto) Lymph # Seg Neutrophils % Seg Neuts % (Manual) Lymphocytes % (Manual) Monocytes % (Manual) Nucleated RBC % Seg Neutrophils # Seg Neutrophils # Man Lymphocytes # (Manual) Monocytes # (Manual) PT INR D-Dimer Heparin Anti-Xa Level POC ABG pH 7.282 L ABG pH POC ABG pCO2 POC ABG pO2 67 L ABG pO2 ABG HCO3 ABG O2 Saturation ABG Base Excess ABG Hemoglobin Oxyhemoglobin Sodium Potassium Chloride Carbon Dioxide BUN Creatinine Glucose POC Glucose 129 H Lactic Acid 3.30 H* Calcium Ionized Calcium Phosphorus Magnesium Iron TIBC Ferritin Total Bilirubin Direct Bilirubin AST ALT Alkaline Phosphatase Total Creatine Kinase CK-MB (CK-2) Troponin T C-Reactive Protein Total Protein Albumin Triglycerides LDL Cholesterol Direct HDL Cholesterol Free T4 PTH Intact Urine WBC (Auto) Urine Creatinine Salicylates Acetaminophen Crossmatch 03/18/19 03/18/19 03/18/19 13:19 16:50 18:11 WBC RBC Hgb Hct RDW Plt Count Lymph % (Auto) [place] % (Auto) Lymph # Seg Neutrophils % Seg Neuts % (Manual) Lymphocytes % (Manual) Monocytes % (Manual) Nucleated RBC % Seg Neutrophils # Seg Neutrophils # Man Lymphocytes # (Manual) Monocytes # (Manual) PT INR D-Dimer Heparin Anti-Xa Level POC ABG pH ABG pH POC ABG pCO2 POC ABG pO2 59 L ABG pO2 ABG HCO3 ABG O2 Saturation ABG Base Excess ABG Hemoglobin Oxyhemoglobin Sodium Potassium Chloride Carbon Dioxide BUN Creatinine Glucose POC Glucose 151 H Lactic Acid Calcium 4.2 L* Ionized Calcium Phosphorus Magnesium Iron TIBC Ferritin Total Bilirubin Direct Bilirubin AST ALT Alkaline Phosphatase Total Creatine Kinase 351534 H CK-MB (CK-2) Troponin T C-Reactive Protein Total Protein Albumin Triglycerides LDL Cholesterol Direct HDL Cholesterol Free T4 PTH Intact Urine WBC (Auto) Urine Creatinine Salicylates Acetaminophen Crossmatch 03/18/19 03/18/19 03/19/19 18:20 23:39 01:42 WBC RBC Hgb Hct RDW Plt Count Lymph % (Auto) [place] % (Auto) Lymph # Seg Neutrophils % Seg Neuts % (Manual) Lymphocytes % (Manual) Monocytes % (Manual) Nucleated RBC % Seg Neutrophils # Seg Neutrophils # Man Lymphocytes # (Manual) Monocytes # (Manual) PT INR D-Dimer Heparin Anti-Xa Level POC ABG pH 7.345 L ABG pH 7.285 L POC ABG pCO2 POC ABG pO2 59 L ABG pO2 44.0 L ABG HCO3 ABG O2 Saturation 70.9 L ABG Base Excess -5.7 L ABG Hemoglobin 11.9 L Oxyhemoglobin 69.6 L Sodium Potassium Chloride Carbon Dioxide BUN Creatinine Glucose POC Glucose 152 H Lactic Acid Calcium Ionized Calcium Phosphorus Magnesium Iron TIBC Ferritin Total Bilirubin Direct Bilirubin AST ALT Alkaline Phosphatase Total Creatine Kinase CK-MB (CK-2) Troponin T C-Reactive Protein Total Protein Albumin Triglycerides LDL Cholesterol Direct HDL Cholesterol Free T4 PTH Intact Urine WBC (Auto) Urine Creatinine Salicylates Acetaminophen Crossmatch 03/19/19 03/19/19 03/19/19 04:00 04:00 05:35 WBC 36.5 H RBC Hgb Hct RDW 15.8 H Plt Count 35 L Lymph % (Auto) [place] % (Auto) Lymph # Seg Neutrophils % Seg Neuts % (Manual) Lymphocytes % (Manual) Monocytes % (Manual) Nucleated RBC % Seg Neutrophils # Seg Neutrophils # Man Lymphocytes # (Manual) Monocytes # (Manual) PT INR D-Dimer Heparin Anti-Xa Level POC ABG pH ABG pH 7.265 L POC ABG pCO2 POC ABG pO2 ABG pO2 35.4 L* ABG HCO3 ABG O2 Saturation 54.4 L ABG Base Excess -6.7 L ABG Hemoglobin 12.9 L Oxyhemoglobin 53.4 L Sodium 132 L Potassium 5.7 H Chloride 89.8 L Carbon Dioxide 19 L BUN 62 H Creatinine 6.4 H Glucose 151 H POC Glucose Lactic Acid Calcium 5.2 L* D Ionized Calcium Phosphorus Magnesium Iron TIBC Ferritin Total Bilirubin 7.80 H Direct Bilirubin AST 682 H ALT 130 H Alkaline Phosphatase 167 H Total Creatine Kinase CK-MB (CK-2) Troponin T C-Reactive Protein Total Protein 4.8 L Albumin 2.3 L Triglycerides LDL Cholesterol Direct HDL Cholesterol Free T4 PTH Intact Urine WBC (Auto) Urine Creatinine Salicylates Acetaminophen Crossmatch 03/19/19 03/19/19 03/19/19 05:49 09:16 09:50 WBC RBC Hgb Hct RDW Plt Count Lymph % (Auto) [place] % (Auto) Lymph # Seg Neutrophils % Seg Neuts % (Manual) Lymphocytes % (Manual) Monocytes % (Manual) Nucleated RBC % Seg Neutrophils # Seg Neutrophils # Man Lymphocytes # (Manual) Monocytes # (Manual) PT INR D-Dimer Heparin Anti-Xa Level POC ABG pH 7.222 L ABG pH POC ABG pCO2 56.6 H POC ABG pO2 ABG pO2 ABG HCO3 ABG O2 Saturation ABG Base Excess ABG Hemoglobin Oxyhemoglobin Sodium Potassium Chloride Carbon Dioxide BUN Creatinine Glucose POC Glucose 154 H Lactic Acid 2.70 H* Calcium Ionized Calcium Phosphorus Magnesium Iron TIBC Ferritin Total Bilirubin Direct Bilirubin AST ALT Alkaline Phosphatase Total Creatine Kinase CK-MB (CK-2) Troponin T C-Reactive Protein Total Protein Albumin Triglycerides LDL Cholesterol Direct HDL Cholesterol Free T4 PTH Intact Urine WBC (Auto) Urine Creatinine Salicylates Acetaminophen Crossmatch 03/19/19 03/19/19 03/19/19 09:50 11:28 17:58 WBC RBC Hgb Hct RDW Plt Count Lymph % (Auto) [place] % (Auto) Lymph # Seg Neutrophils % Seg Neuts % (Manual) Lymphocytes % (Manual) Monocytes % (Manual) Nucleated RBC % Seg Neutrophils # Seg Neutrophils # Man Lymphocytes # (Manual) Monocytes # (Manual) PT INR D-Dimer Heparin Anti-Xa Level POC ABG pH 7.250 L ABG pH POC ABG pCO2 52.6 H POC ABG pO2 ABG pO2 ABG HCO3 ABG O2 Saturation ABG Base Excess ABG Hemoglobin Oxyhemoglobin Sodium Potassium Chloride Carbon Dioxide BUN Creatinine Glucose POC Glucose 160 H Lactic Acid Calcium Ionized Calcium Phosphorus Magnesium Iron TIBC Ferritin Total Bilirubin Direct Bilirubin AST ALT Alkaline Phosphatase Total Creatine Kinase 09075 H CK-MB (CK-2) Troponin T C-Reactive Protein Total Protein Albumin Triglycerides LDL Cholesterol Direct HDL Cholesterol Free T4 PTH Intact Urine WBC (Auto) Urine Creatinine Salicylates Acetaminophen Crossmatch 03/19/19 03/19/19 03/20/19 19:48 21:03 02:16 WBC RBC Hgb Hct RDW Plt Count Lymph % (Auto) [place] % (Auto) Lymph # Seg Neutrophils % Seg Neuts % (Manual) Lymphocytes % (Manual) Monocytes % (Manual) Nucleated RBC % Seg Neutrophils # Seg Neutrophils # Man Lymphocytes # (Manual) Monocytes # (Manual) PT INR D-Dimer Heparin Anti-Xa Level POC ABG pH 7.279 L ABG pH POC ABG pCO2 50.3 H POC ABG pO2 129 H ABG pO2 ABG HCO3 ABG O2 Saturation ABG Base Excess ABG Hemoglobin Oxyhemoglobin Sodium Potassium Chloride Carbon Dioxide BUN Creatinine Glucose POC Glucose 119 H 119 H Lactic Acid Calcium Ionized Calcium Phosphorus Magnesium Iron TIBC Ferritin Total Bilirubin Direct Bilirubin AST ALT Alkaline Phosphatase Total Creatine Kinase CK-MB (CK-2) Troponin T C-Reactive Protein Total Protein Albumin Triglycerides LDL Cholesterol Direct HDL Cholesterol Free T4 PTH Intact Urine WBC (Auto) Urine Creatinine Salicylates Acetaminophen Crossmatch 03/20/19 03/20/19 03/20/19 04:23 05:05 09:30 WBC 36.3 H RBC Hgb Hct RDW 15.5 H Plt Count 29 L Lymph % (Auto) [place] % (Auto) Lymph # Seg Neutrophils % Seg Neuts % (Manual) Lymphocytes % (Manual) Monocytes % (Manual) Nucleated RBC % Seg Neutrophils # Seg Neutrophils # Man Lymphocytes # (Manual) Monocytes # (Manual) PT INR D-Dimer Heparin Anti-Xa Level POC ABG pH ABG pH POC ABG pCO2 POC ABG pO2 280 H ABG pO2 ABG HCO3 ABG O2 Saturation ABG Base Excess ABG Hemoglobin Oxyhemoglobin Sodium Potassium Chloride Carbon Dioxide BUN Creatinine Glucose POC Glucose 115 H Lactic Acid Calcium Ionized Calcium Phosphorus Magnesium Iron TIBC Ferritin Total Bilirubin Direct Bilirubin AST ALT Alkaline Phosphatase Total Creatine Kinase CK-MB (CK-2) Troponin T C-Reactive Protein Total Protein Albumin Triglycerides LDL Cholesterol Direct HDL Cholesterol Free T4 PTH Intact Urine WBC (Auto) Urine Creatinine Salicylates Acetaminophen Crossmatch 03/20/19 03/20/19 03/20/19 09:30 09:30 11:34 WBC RBC Hgb Hct RDW Plt Count Lymph % (Auto) [place] % (Auto) Lymph # Seg Neutrophils % Seg Neuts % (Manual) Lymphocytes % (Manual) Monocytes % (Manual) Nucleated RBC % Seg Neutrophils # Seg Neutrophils # Man Lymphocytes # (Manual) Monocytes # (Manual) PT INR D-Dimer Heparin Anti-Xa Level POC ABG pH ABG pH POC ABG pCO2 POC ABG pO2 ABG pO2 ABG HCO3 ABG O2 Saturation ABG Base Excess ABG Hemoglobin Oxyhemoglobin Sodium 131 L Potassium Chloride 92.3 L Carbon Dioxide 20 L BUN 68 H Creatinine 6.1 H Glucose 164 H POC Glucose 141 H Lactic Acid Calcium 5.3 L* Ionized Calcium Phosphorus Magnesium Iron TIBC Ferritin Total Bilirubin 9.50 H Direct Bilirubin AST 381 H ALT 116 H Alkaline Phosphatase 255 H Total Creatine Kinase 75766 H CK-MB (CK-2) Troponin T C-Reactive Protein Total Protein 5.1 L Albumin 2.3 L Triglycerides LDL Cholesterol Direct HDL Cholesterol Free T4 PTH Intact Urine WBC (Auto) Urine Creatinine Salicylates Acetaminophen Crossmatch 03/20/19 03/20/19 03/20/19 14:41 14:45 18:50 WBC RBC Hgb Hct RDW Plt Count Lymph % (Auto) [place] % (Auto) Lymph # Seg Neutrophils % Seg Neuts % (Manual) Lymphocytes % (Manual) Monocytes % (Manual) Nucleated RBC % Seg Neutrophils # Seg Neutrophils # Man Lymphocytes # (Manual) Monocytes # (Manual) PT INR D-Dimer Heparin Anti-Xa Level POC ABG pH ABG pH POC ABG pCO2 POC ABG pO2 ABG pO2 ABG HCO3 ABG O2 Saturation ABG Base Excess ABG Hemoglobin Oxyhemoglobin Sodium Potassium Chloride Carbon Dioxide BUN Creatinine Glucose POC Glucose 117 H Lactic Acid 2.90 H* Calcium Ionized Calcium Phosphorus Magnesium Iron TIBC Ferritin Total Bilirubin Direct Bilirubin AST ALT Alkaline Phosphatase Total Creatine Kinase CK-MB (CK-2) Troponin T C-Reactive Protein 13.30 H Total Protein Albumin Triglycerides LDL Cholesterol Direct HDL Cholesterol Free T4 PTH Intact Urine WBC (Auto) Urine Creatinine Salicylates Acetaminophen Crossmatch 03/20/19 03/21/19 03/21/19 21:55 04:26 04:26 WBC 37.8 H RBC Hgb Hct RDW 15.4 H Plt Count 36 L Lymph % (Auto) [place] % (Auto) Lymph # Seg Neutrophils % Seg Neuts % (Manual) 93.0 H Lymphocytes % (Manual) 3.0 L Monocytes % (Manual) Nucleated RBC % 1.0 H Seg Neutrophils # 34.6 H Seg Neutrophils # Man 35.2 H Lymphocytes # (Manual) 1.1 L Monocytes # (Manual) PT INR D-Dimer Heparin Anti-Xa Level POC ABG pH ABG pH POC ABG pCO2 POC ABG pO2 ABG pO2 ABG HCO3 ABG O2 Saturation ABG Base Excess ABG Hemoglobin Oxyhemoglobin Sodium 131 L Potassium Chloride 90.7 L Carbon Dioxide 21 L BUN 69 H Creatinine 5.7 H Glucose 170 H POC Glucose 128 H Lactic Acid Calcium 6.1 L D Ionized Calcium Phosphorus Magnesium Iron TIBC Ferritin Total Bilirubin 9.50 H Direct Bilirubin AST 308 H ALT 124 H Alkaline Phosphatase 327 H Total Creatine Kinase 89890 H CK-MB (CK-2) Troponin T C-Reactive Protein Total Protein 5.7 L Albumin 2.6 L Triglycerides LDL Cholesterol Direct HDL Cholesterol Free T4 PTH Intact Urine WBC (Auto) Urine Creatinine Salicylates Acetaminophen Crossmatch 03/21/19 03/21/19 03/21/19 05:17 05:39 08:29 WBC RBC Hgb Hct RDW Plt Count Lymph % (Auto) [place] % (Auto) Lymph # Seg Neutrophils % Seg Neuts % (Manual) Lymphocytes % (Manual) Monocytes % (Manual) Nucleated RBC % Seg Neutrophils # Seg Neutrophils # Man Lymphocytes # (Manual) Monocytes # (Manual) PT INR D-Dimer Heparin Anti-Xa Level POC ABG pH ABG pH POC ABG pCO2 POC ABG pO2 209 H ABG pO2 ABG HCO3 ABG O2 Saturation ABG Base Excess ABG Hemoglobin Oxyhemoglobin Sodium Potassium Chloride Carbon Dioxide BUN Creatinine Glucose POC Glucose 145 H Lactic Acid Calcium Ionized Calcium Phosphorus Magnesium Iron TIBC Ferritin Total Bilirubin Direct Bilirubin AST ALT Alkaline Phosphatase Total Creatine Kinase 00883 H CK-MB (CK-2) Troponin T C-Reactive Protein Total Protein Albumin Triglycerides LDL Cholesterol Direct HDL Cholesterol Free T4 PTH Intact Urine WBC (Auto) Urine Creatinine Salicylates Acetaminophen Crossmatch 03/21/19 03/21/19 03/21/19 08:29 11:43 12:00 WBC RBC Hgb Hct RDW Plt Count Lymph % (Auto) [place] % (Auto) Lymph # Seg Neutrophils % Seg Neuts % (Manual) Lymphocytes % (Manual) Monocytes % (Manual) Nucleated RBC % Seg Neutrophils # Seg Neutrophils # Man Lymphocytes # (Manual) Monocytes # (Manual) PT INR D-Dimer Heparin Anti-Xa Level POC ABG pH ABG pH POC ABG pCO2 POC ABG pO2 ABG pO2 ABG HCO3 ABG O2 Saturation ABG Base Excess ABG Hemoglobin Oxyhemoglobin Sodium Potassium Chloride Carbon Dioxide BUN Creatinine Glucose POC Glucose 123 H Lactic Acid 2.60 H* 2.20 H* Calcium Ionized Calcium Phosphorus Magnesium Iron TIBC Ferritin Total Bilirubin Direct Bilirubin AST ALT Alkaline Phosphatase Total Creatine Kinase CK-MB (CK-2) Troponin T C-Reactive Protein Total Protein Albumin Triglycerides LDL Cholesterol Direct HDL Cholesterol Free T4 PTH Intact Urine WBC (Auto) Urine Creatinine Salicylates Acetaminophen Crossmatch 03/21/19 03/21/19 03/21/19 14:11 18:28 19:32 WBC RBC Hgb Hct RDW Plt Count Lymph % (Auto) [place] % (Auto) Lymph # Seg Neutrophils % Seg Neuts % (Manual) Lymphocytes % (Manual) Monocytes % (Manual) Nucleated RBC % Seg Neutrophils # Seg Neutrophils # Man Lymphocytes # (Manual) Monocytes # (Manual) PT INR D-Dimer Heparin Anti-Xa Level POC ABG pH 7.293 L ABG pH POC ABG pCO2 POC ABG pO2 ABG pO2 ABG HCO3 ABG O2 Saturation ABG Base Excess ABG Hemoglobin Oxyhemoglobin Sodium Potassium Chloride Carbon Dioxide BUN Creatinine Glucose POC Glucose 153 H Lactic Acid 2.10 H* Calcium Ionized Calcium Phosphorus Magnesium Iron TIBC Ferritin Total Bilirubin Direct Bilirubin AST ALT Alkaline Phosphatase Total Creatine Kinase CK-MB (CK-2) Troponin T C-Reactive Protein Total Protein Albumin Triglycerides LDL Cholesterol Direct HDL Cholesterol Free T4 PTH Intact Urine WBC (Auto) Urine Creatinine Salicylates Acetaminophen Crossmatch 03/21/19 03/22/19 03/22/19 23:38 05:08 05:51 WBC RBC Hgb Hct RDW Plt Count Lymph % (Auto) [place] % (Auto) Lymph # Seg Neutrophils % Seg Neuts % (Manual) Lymphocytes % (Manual) Monocytes % (Manual) Nucleated RBC % Seg Neutrophils # Seg Neutrophils # Man Lymphocytes # (Manual) Monocytes # (Manual) PT INR D-Dimer Heparin Anti-Xa Level POC ABG pH 7.283 L ABG pH POC ABG pCO2 POC ABG pO2 53 L ABG pO2 ABG HCO3 ABG O2 Saturation ABG Base Excess ABG Hemoglobin Oxyhemoglobin Sodium Potassium Chloride Carbon Dioxide BUN Creatinine Glucose POC Glucose 149 H 131 H Lactic Acid Calcium Ionized Calcium Phosphorus Magnesium Iron TIBC Ferritin Total Bilirubin Direct Bilirubin AST ALT Alkaline Phosphatase Total Creatine Kinase CK-MB (CK-2) Troponin T C-Reactive Protein Total Protein Albumin Triglycerides LDL Cholesterol Direct HDL Cholesterol Free T4 PTH Intact Urine WBC (Auto) Urine Creatinine Salicylates Acetaminophen Crossmatch 03/22/19 03/22/19 03/22/19 08:00 08:00 18:19 WBC 36.7 H RBC Hgb 11.0 L Hct 33.5 L RDW 15.5 H Plt Count 43 L Lymph % (Auto) [place] % (Auto) Lymph # Seg Neutrophils % Seg Neuts % (Manual) 87.0 H Lymphocytes % (Manual) 7.0 L Monocytes % (Manual) Nucleated RBC % Seg Neutrophils # Seg Neutrophils # Man 31.9 H Lymphocytes # (Manual) Monocytes # (Manual) PT INR D-Dimer Heparin Anti-Xa Level POC ABG pH ABG pH POC ABG pCO2 46.4 H POC ABG pO2 108 H ABG pO2 ABG HCO3 ABG O2 Saturation ABG Base Excess ABG Hemoglobin Oxyhemoglobin Sodium 132 L Potassium 5.6 H Chloride 89.6 L Carbon Dioxide 20 L BUN 101 H Creatinine 7.4 H Glucose 124 H POC Glucose Lactic Acid Calcium 5.2 L* Ionized Calcium Phosphorus Magnesium Iron TIBC Ferritin Total Bilirubin 2.80 H Direct Bilirubin AST 119 H ALT 86 H Alkaline Phosphatase 245 H Total Creatine Kinase CK-MB (CK-2) Troponin T C-Reactive Protein Total Protein 5.6 L Albumin 2.5 L Triglycerides LDL Cholesterol Direct HDL Cholesterol Free T4 PTH Intact Urine WBC (Auto) Urine Creatinine Salicylates Acetaminophen Crossmatch 03/22/19 03/23/19 03/23/19 20:37 04:49 05:28 WBC 35.9 H RBC Hgb 10.8 L Hct 33.2 L RDW 15.5 H Plt Count 49 L Lymph % (Auto) [place] % (Auto) Lymph # Seg Neutrophils % Seg Neuts % (Manual) 81.0 H Lymphocytes % (Manual) 3.5 L Monocytes % (Manual) Nucleated RBC % Seg Neutrophils # Seg Neutrophils # Man 29.1 H Lymphocytes # (Manual) Monocytes # (Manual) 1.4 H PT INR D-Dimer Heparin Anti-Xa Level POC ABG pH 7.296 L ABG pH POC ABG pCO2 46.2 H POC ABG pO2 ABG pO2 ABG HCO3 ABG O2 Saturation ABG Base Excess ABG Hemoglobin Oxyhemoglobin Sodium 129 L Potassium 5.2 H Chloride 91.1 L Carbon Dioxide BUN 91 H Creatinine 6.6 H Glucose 190 H POC Glucose Lactic Acid Calcium 5.3 L* Ionized Calcium Phosphorus Magnesium Iron TIBC Ferritin Total Bilirubin 1.80 H Direct Bilirubin AST 80 H ALT 62 H Alkaline Phosphatase 209 H Total Creatine Kinase 9758 H CK-MB (CK-2) Troponin T C-Reactive Protein Total Protein 5.2 L Albumin 2.2 L Triglycerides LDL Cholesterol Direct HDL Cholesterol Free T4 PTH Intact Urine WBC (Auto) Urine Creatinine Salicylates Acetaminophen Crossmatch 03/23/19 03/23/19 03/23/19 05:28 05:31 11:33 WBC 29.7 H RBC 3.59 L Hgb 10.1 L Hct 31.1 L RDW 15.4 H Plt Count 47 L Lymph % (Auto) [place] % (Auto) Lymph # Seg Neutrophils % Seg Neuts % (Manual) 89.0 H Lymphocytes % (Manual) 6.0 L Monocytes % (Manual) Nucleated RBC % 1.0 H Seg Neutrophils # Seg Neutrophils # Man 26.4 H Lymphocytes # (Manual) Monocytes # (Manual) PT INR D-Dimer Heparin Anti-Xa Level POC ABG pH ABG pH POC ABG pCO2 POC ABG pO2 ABG pO2 ABG HCO3 ABG O2 Saturation ABG Base Excess ABG Hemoglobin Oxyhemoglobin Sodium Potassium Chloride Carbon Dioxide BUN Creatinine Glucose POC Glucose 122 H 113 H Lactic Acid Calcium Ionized Calcium Phosphorus Magnesium Iron TIBC Ferritin Total Bilirubin Direct Bilirubin AST ALT Alkaline Phosphatase Total Creatine Kinase CK-MB (CK-2) Troponin T C-Reactive Protein Total Protein Albumin Triglycerides LDL Cholesterol Direct HDL Cholesterol Free T4 PTH Intact Urine WBC (Auto) Urine Creatinine Salicylates Acetaminophen Crossmatch 03/23/19 03/24/19 03/24/19 17:47 00:00 04:50 WBC 35.0 H RBC Hgb 10.4 L Hct 32.4 L RDW Plt Count 60 L Lymph % (Auto) [place] % (Auto) Lymph # Seg Neutrophils % Seg Neuts % (Manual) 93.0 H Lymphocytes % (Manual) 5.0 L Monocytes % (Manual) Nucleated RBC % 7.0 H Seg Neutrophils # Seg Neutrophils # Man 32.6 H Lymphocytes # (Manual) Monocytes # (Manual) PT INR D-Dimer Heparin Anti-Xa Level POC ABG pH ABG pH POC ABG pCO2 POC ABG pO2 ABG pO2 ABG HCO3 ABG O2 Saturation ABG Base Excess ABG Hemoglobin Oxyhemoglobin Sodium Potassium Chloride Carbon Dioxide BUN Creatinine Glucose POC Glucose 111 H 108 H Lactic Acid Calcium Ionized Calcium Phosphorus Magnesium Iron TIBC Ferritin Total Bilirubin Direct Bilirubin AST ALT Alkaline Phosphatase Total Creatine Kinase CK-MB (CK-2) Troponin T C-Reactive Protein Total Protein Albumin Triglycerides LDL Cholesterol Direct HDL Cholesterol Free T4 PTH Intact Urine WBC (Auto) Urine Creatinine Salicylates Acetaminophen Crossmatch 03/24/19 03/24/19 03/24/19 04:50 05:06 12:55 WBC RBC Hgb Hct RDW Plt Count Lymph % (Auto) [place] % (Auto) Lymph # Seg Neutrophils % Seg Neuts % (Manual) Lymphocytes % (Manual) Monocytes % (Manual) Nucleated RBC % Seg Neutrophils # Seg Neutrophils # Man Lymphocytes # (Manual) Monocytes # (Manual) PT INR D-Dimer Heparin Anti-Xa Level POC ABG pH ABG pH POC ABG pCO2 POC ABG pO2 ABG pO2 ABG HCO3 ABG O2 Saturation ABG Base Excess ABG Hemoglobin Oxyhemoglobin Sodium 134 L Potassium 5.1 H Chloride 95.3 L Carbon Dioxide 21 L BUN 85 H Creatinine 6.4 H Glucose 109 H POC Glucose 112 H 110 H Lactic Acid Calcium 5.8 L* Ionized Calcium Phosphorus Magnesium Iron TIBC Ferritin Total Bilirubin Direct Bilirubin AST ALT Alkaline Phosphatase Total Creatine Kinase 5747 H CK-MB (CK-2) Troponin T C-Reactive Protein Total Protein Albumin Triglycerides LDL Cholesterol Direct HDL Cholesterol Free T4 PTH Intact Urine WBC (Auto) Urine Creatinine Salicylates Acetaminophen Crossmatch 03/24/19 03/25/19 03/25/19 23:29 05:00 05:00 WBC RBC Hgb Hct RDW Plt Count Lymph % (Auto) [place] % (Auto) Lymph # Seg Neutrophils % Seg Neuts % (Manual) Lymphocytes % (Manual) Monocytes % (Manual) Nucleated RBC % Seg Neutrophils # Seg Neutrophils # Man Lymphocytes # (Manual) Monocytes # (Manual) PT INR D-Dimer Heparin Anti-Xa Level POC ABG pH ABG pH POC ABG pCO2 POC ABG pO2 ABG pO2 ABG HCO3 ABG O2 Saturation ABG Base Excess ABG Hemoglobin Oxyhemoglobin Sodium 133 L Potassium Chloride 94.0 L Carbon Dioxide 21 L BUN 81 H Creatinine 6.4 H Glucose POC Glucose 109 H Lactic Acid Calcium 5.5 L* Ionized Calcium Phosphorus Magnesium Iron TIBC Ferritin Total Bilirubin Direct Bilirubin AST 80 H ALT Alkaline Phosphatase 202 H Total Creatine Kinase 3589 H CK-MB (CK-2) Troponin T C-Reactive Protein Total Protein 5.3 L Albumin 2.4 L Triglycerides LDL Cholesterol Direct HDL Cholesterol Free T4 PTH Intact 329.9 H Urine WBC (Auto) Urine Creatinine Salicylates Acetaminophen Crossmatch 03/25/19 03/25/19 03/26/19 05:00 06:30 04:30 WBC 23.3 H RBC 3.61 L Hgb 10.2 L Hct 31.2 L RDW Plt Count 57 L Lymph % (Auto) [place] % (Auto) Lymph # Seg Neutrophils % Seg Neuts % (Manual) 92.0 H Lymphocytes % (Manual) 6.0 L Monocytes % (Manual) Nucleated RBC % Seg Neutrophils # Seg Neutrophils # Man 21.4 H Lymphocytes # (Manual) Monocytes # (Manual) PT INR D-Dimer Heparin Anti-Xa Level POC ABG pH ABG pH 7.326 L POC ABG pCO2 POC ABG pO2 ABG pO2 109.5 H 137.4 H ABG HCO3 18.8 L 18.6 L ABG O2 Saturation ABG Base Excess -4.4 L -6.8 L ABG Hemoglobin 10.1 L 9.9 L Oxyhemoglobin Sodium Potassium Chloride Carbon Dioxide BUN Creatinine Glucose POC Glucose Lactic Acid Calcium Ionized Calcium Phosphorus Magnesium Iron TIBC Ferritin Total Bilirubin Direct Bilirubin AST ALT Alkaline Phosphatase Total Creatine Kinase CK-MB (CK-2) Troponin T C-Reactive Protein Total Protein Albumin Triglycerides LDL Cholesterol Direct HDL Cholesterol Free T4 PTH Intact Urine WBC (Auto) Urine Creatinine Salicylates Acetaminophen Crossmatch 03/26/19 03/26/19 03/26/19 23:22 Unknown Unknown WBC 19.5 H RBC 3.44 L Hgb 9.8 L Hct 29.9 L RDW Plt Count 85 L Lymph % (Auto) [place] % (Auto) Lymph # Seg Neutrophils % Seg Neuts % (Manual) 95.0 H Lymphocytes % (Manual) 3.0 L Monocytes % (Manual) Nucleated RBC % Seg Neutrophils # Seg Neutrophils # Man 18.5 H Lymphocytes # (Manual) 0.6 L Monocytes # (Manual) PT INR D-Dimer Heparin Anti-Xa Level POC ABG pH ABG pH POC ABG pCO2 POC ABG pO2 ABG pO2 ABG HCO3 ABG O2 Saturation ABG Base Excess ABG Hemoglobin Oxyhemoglobin Sodium 135 L Potassium 5.2 H D Chloride 92.2 L Carbon Dioxide 18 L BUN 109 H Creatinine 8.5 H Glucose 117 H POC Glucose 69 L Lactic Acid Calcium 4.5 L* D Ionized Calcium Phosphorus Magnesium Iron TIBC Ferritin Total Bilirubin Direct Bilirubin AST ALT Alkaline Phosphatase Total Creatine Kinase 4527 H CK-MB (CK-2) Troponin T C-Reactive Protein Total Protein Albumin Triglycerides LDL Cholesterol Direct HDL Cholesterol Free T4 PTH Intact Urine WBC (Auto) Urine Creatinine Salicylates Acetaminophen Crossmatch 03/27/19 03/27/19 03/27/19 04:30 04:30 09:00 WBC 19.2 H RBC 3.42 L Hgb 9.9 L Hct 30.0 L RDW Plt Count 84 L Lymph % (Auto) [place] % (Auto) Lymph # Seg Neutrophils % Seg Neuts % (Manual) Lymphocytes % (Manual) Monocytes % (Manual) Nucleated RBC % Seg Neutrophils # Seg Neutrophils # Man Lymphocytes # (Manual) Monocytes # (Manual) PT INR D-Dimer Heparin Anti-Xa Level POC ABG pH ABG pH POC ABG pCO2 POC ABG pO2 ABG pO2 ABG HCO3 ABG O2 Saturation ABG Base Excess ABG Hemoglobin Oxyhemoglobin Sodium 135 L Potassium Chloride 93.5 L Carbon Dioxide BUN 84 H Creatinine 7.1 H Glucose POC Glucose Lactic Acid Calcium 5.0 L* Ionized Calcium Phosphorus Magnesium Iron TIBC Ferritin Total Bilirubin Direct Bilirubin AST 78 H ALT Alkaline Phosphatase 135 H Total Creatine Kinase 4677 H CK-MB (CK-2) Troponin T C-Reactive Protein Total Protein 4.8 L Albumin 2.3 L Triglycerides 409 H LDL Cholesterol Direct HDL Cholesterol Free T4 PTH Intact Urine WBC (Auto) Urine Creatinine Salicylates Acetaminophen Crossmatch 03/27/19 03/27/19 03/27/19 12:37 14:15 14:15 WBC RBC Hgb 9.7 L Hct 29.5 L RDW Plt Count 87 L Lymph % (Auto) [place] % (Auto) Lymph # Seg Neutrophils % Seg Neuts % (Manual) Lymphocytes % (Manual) Monocytes % (Manual) Nucleated RBC % Seg Neutrophils # Seg Neutrophils # Man Lymphocytes # (Manual) Monocytes # (Manual) PT 15.9 H INR 1.30 H D-Dimer Heparin Anti-Xa Level POC ABG pH ABG pH POC ABG pCO2 POC ABG pO2 ABG pO2 ABG HCO3 ABG O2 Saturation ABG Base Excess ABG Hemoglobin Oxyhemoglobin Sodium Potassium Chloride Carbon Dioxide BUN Creatinine Glucose POC Glucose 129 H Lactic Acid Calcium Ionized Calcium Phosphorus Magnesium Iron TIBC Ferritin Total Bilirubin Direct Bilirubin AST ALT Alkaline Phosphatase Total Creatine Kinase CK-MB (CK-2) Troponin T C-Reactive Protein Total Protein Albumin Triglycerides LDL Cholesterol Direct HDL Cholesterol Free T4 PTH Intact Urine WBC (Auto) Urine Creatinine Salicylates Acetaminophen Crossmatch 03/27/19 03/27/19 03/27/19 18:00 19:22 19:23 WBC RBC Hgb Hct RDW Plt Count Lymph % (Auto) [place] % (Auto) Lymph # Seg Neutrophils % Seg Neuts % (Manual) Lymphocytes % (Manual) Monocytes % (Manual) Nucleated RBC % Seg Neutrophils # Seg Neutrophils # Man Lymphocytes # (Manual) Monocytes # (Manual) PT INR D-Dimer Heparin Anti-Xa Level < 0.10 L POC ABG pH ABG pH POC ABG pCO2 POC ABG pO2 ABG pO2 ABG HCO3 ABG O2 Saturation ABG Base Excess ABG Hemoglobin Oxyhemoglobin Sodium Potassium Chloride Carbon Dioxide BUN Creatinine Glucose POC Glucose 121 H Lactic Acid Calcium Ionized Calcium Phosphorus Magnesium Iron TIBC Ferritin Total Bilirubin Direct Bilirubin AST ALT Alkaline Phosphatase Total Creatine Kinase 4517 H CK-MB (CK-2) Troponin T C-Reactive Protein Total Protein Albumin Triglycerides LDL Cholesterol Direct HDL Cholesterol Free T4 PTH Intact Urine WBC (Auto) Urine Creatinine Salicylates Acetaminophen Crossmatch 03/27/19 03/27/19 03/28/19 22:10 23:52 03:49 WBC RBC Hgb Hct RDW Plt Count Lymph % (Auto) [place] % (Auto) Lymph # Seg Neutrophils % Seg Neuts % (Manual) Lymphocytes % (Manual) Monocytes % (Manual) Nucleated RBC % Seg Neutrophils # Seg Neutrophils # Man Lymphocytes # (Manual) Monocytes # (Manual) PT INR D-Dimer Heparin Anti-Xa Level POC ABG pH 7.338 L ABG pH POC ABG pCO2 33.1 L POC ABG pO2 ABG pO2 ABG HCO3 ABG O2 Saturation ABG Base Excess ABG Hemoglobin Oxyhemoglobin Sodium Potassium Chloride Carbon Dioxide BUN Creatinine Glucose POC Glucose 113 H 117 H Lactic Acid Calcium Ionized Calcium Phosphorus Magnesium Iron TIBC Ferritin Total Bilirubin Direct Bilirubin AST ALT Alkaline Phosphatase Total Creatine Kinase CK-MB (CK-2) Troponin T C-Reactive Protein Total Protein Albumin Triglycerides LDL Cholesterol Direct HDL Cholesterol Free T4 PTH Intact Urine WBC (Auto) Urine Creatinine Salicylates Acetaminophen Crossmatch 03/28/19 03/28/19 03/28/19 05:13 05:13 06:18 WBC RBC Hgb Hct RDW Plt Count Lymph % (Auto) [place] % (Auto) Lymph # Seg Neutrophils % Seg Neuts % (Manual) Lymphocytes % (Manual) Monocytes % (Manual) Nucleated RBC % Seg Neutrophils # Seg Neutrophils # Man Lymphocytes # (Manual) Monocytes # (Manual) PT INR D-Dimer Heparin Anti-Xa Level 0.23 L POC ABG pH ABG pH POC ABG pCO2 POC ABG pO2 ABG pO2 ABG HCO3 ABG O2 Saturation ABG Base Excess ABG Hemoglobin Oxyhemoglobin Sodium 135 L Potassium 5.5 H D Chloride 95.1 L Carbon Dioxide 16 L D BUN 129 H Creatinine 9.3 H Glucose 158 H POC Glucose 202 H Lactic Acid Calcium 4.0 L* D Ionized Calcium Phosphorus 12.40 H Magnesium Iron TIBC Ferritin Total Bilirubin Direct Bilirubin AST ALT Alkaline Phosphatase Total Creatine Kinase 4266 H CK-MB (CK-2) Troponin T C-Reactive Protein Total Protein Albumin Triglycerides LDL Cholesterol Direct HDL Cholesterol Free T4 PTH Intact Urine WBC (Auto) Urine Creatinine Salicylates Acetaminophen Crossmatch 03/28/19 03/28/19 03/28/19 08:25 10:00 12:00 WBC RBC Hgb 4.9 L* D Hct 15.4 L* D RDW Plt Count Lymph % (Auto) [place] % (Auto) Lymph # Seg Neutrophils % Seg Neuts % (Manual) Lymphocytes % (Manual) Monocytes % (Manual) Nucleated RBC % Seg Neutrophils # Seg Neutrophils # Man Lymphocytes # (Manual) Monocytes # (Manual) PT 17.9 H INR 1.52 H D-Dimer 4845.98 H Heparin Anti-Xa Level POC ABG pH ABG pH POC ABG pCO2 POC ABG pO2 ABG pO2 ABG HCO3 ABG O2 Saturation ABG Base Excess ABG Hemoglobin Oxyhemoglobin Sodium Potassium Chloride Carbon Dioxide BUN Creatinine Glucose POC Glucose Lactic Acid Calcium Ionized Calcium Phosphorus Magnesium Iron TIBC Ferritin Total Bilirubin Direct Bilirubin AST ALT Alkaline Phosphatase Total Creatine Kinase CK-MB (CK-2) Troponin T C-Reactive Protein Total Protein Albumin Triglycerides LDL Cholesterol Direct HDL Cholesterol Free T4 PTH Intact Urine WBC (Auto) Urine Creatinine Salicylates Acetaminophen Crossmatch See Detail 03/28/19 03/28/19 03/28/19 12:28 14:10 17:43 WBC RBC Hgb 5.9 L* Hct 18.3 L* RDW Plt Count Lymph % (Auto) [place] % (Auto) Lymph # Seg Neutrophils % Seg Neuts % (Manual) Lymphocytes % (Manual) Monocytes % (Manual) Nucleated RBC % Seg Neutrophils # Seg Neutrophils # Man Lymphocytes # (Manual) Monocytes # (Manual) PT INR D-Dimer Heparin Anti-Xa Level POC ABG pH ABG pH POC ABG pCO2 POC ABG pO2 ABG pO2 ABG HCO3 ABG O2 Saturation ABG Base Excess ABG Hemoglobin Oxyhemoglobin Sodium Potassium Chloride Carbon Dioxide BUN Creatinine Glucose POC Glucose 153 H 159 H Lactic Acid Calcium Ionized Calcium Phosphorus Magnesium Iron TIBC Ferritin Total Bilirubin Direct Bilirubin AST ALT Alkaline Phosphatase Total Creatine Kinase CK-MB (CK-2) Troponin T C-Reactive Protein Total Protein Albumin Triglycerides LDL Cholesterol Direct HDL Cholesterol Free T4 PTH Intact Urine WBC (Auto) Urine Creatinine Salicylates Acetaminophen Crossmatch 03/28/19 03/28/19 03/28/19 18:10 Unknown 23:59 WBC 24.8 H RBC 3.42 L Hgb 10.2 L D Hct 31.1 L D RDW 15.4 H Plt Count 54 L Lymph % (Auto) [place] % (Auto) Lymph # Seg Neutrophils % Seg Neuts % (Manual) 91.0 H Lymphocytes % (Manual) 8.0 L Monocytes % (Manual) Nucleated RBC % Seg Neutrophils # Seg Neutrophils # Man 22.6 H Lymphocytes # (Manual) Monocytes # (Manual) PT INR D-Dimer Heparin Anti-Xa Level POC ABG pH ABG pH POC ABG pCO2 POC ABG pO2 ABG pO2 ABG HCO3 ABG O2 Saturation ABG Base Excess ABG Hemoglobin Oxyhemoglobin Sodium Potassium 5.7 H Chloride Carbon Dioxide BUN Creatinine Glucose POC Glucose 107 H Lactic Acid Calcium Ionized Calcium Phosphorus Magnesium Iron TIBC Ferritin Total Bilirubin Direct Bilirubin AST ALT Alkaline Phosphatase Total Creatine Kinase CK-MB (CK-2) Troponin T C-Reactive Protein Total Protein Albumin Triglycerides LDL Cholesterol Direct HDL Cholesterol Free T4 PTH Intact Urine WBC (Auto) Urine Creatinine Salicylates Acetaminophen Crossmatch 03/29/19 03/29/19 03/29/19 04:29 05:46 06:22 WBC RBC Hgb 8.6 L Hct 25.7 L RDW Plt Count 93 L Lymph % (Auto) [place] % (Auto) Lymph # Seg Neutrophils % Seg Neuts % (Manual) Lymphocytes % (Manual) Monocytes % (Manual) Nucleated RBC % Seg Neutrophils # Seg Neutrophils # Man Lymphocytes # (Manual) Monocytes # (Manual) PT INR D-Dimer Heparin Anti-Xa Level POC ABG pH ABG pH POC ABG pCO2 32.2 L POC ABG pO2 ABG pO2 ABG HCO3 ABG O2 Saturation ABG Base Excess ABG Hemoglobin Oxyhemoglobin Sodium Potassium Chloride Carbon Dioxide BUN Creatinine Glucose POC Glucose 113 H Lactic Acid Calcium Ionized Calcium Phosphorus Magnesium Iron TIBC Ferritin Total Bilirubin Direct Bilirubin AST ALT Alkaline Phosphatase Total Creatine Kinase CK-MB (CK-2) Troponin T C-Reactive Protein Total Protein Albumin Triglycerides LDL Cholesterol Direct HDL Cholesterol Free T4 PTH Intact Urine WBC (Auto) Urine Creatinine Salicylates Acetaminophen Crossmatch 03/29/19 03/29/19 03/29/19 06:22 06:22 06:22 WBC 23.2 H RBC 2.91 L Hgb 8.6 L Hct 25.8 L RDW Plt Count 91 L Lymph % (Auto) [place] % (Auto) Lymph # Seg Neutrophils % Seg Neuts % (Manual) Lymphocytes % (Manual) Monocytes % (Manual) Nucleated RBC % Seg Neutrophils # Seg Neutrophils # Man Lymphocytes # (Manual) Monocytes # (Manual) PT INR D-Dimer Heparin Anti-Xa Level POC ABG pH ABG pH POC ABG pCO2 POC ABG pO2 ABG pO2 ABG HCO3 ABG O2 Saturation ABG Base Excess ABG Hemoglobin Oxyhemoglobin Sodium 133 L Potassium Chloride 93.8 L Carbon Dioxide 18 L BUN 109 H Creatinine 7.4 H Glucose 124 H POC Glucose Lactic Acid Calcium 4.6 L* Ionized Calcium Phosphorus Magnesium Iron TIBC Ferritin Total Bilirubin Direct Bilirubin AST ALT Alkaline Phosphatase Total Creatine Kinase 3401 H CK-MB (CK-2) Troponin T C-Reactive Protein Total Protein Albumin Triglycerides 309 H LDL Cholesterol Direct HDL Cholesterol Free T4 PTH Intact Urine WBC (Auto) Urine Creatinine Salicylates Acetaminophen Crossmatch 03/29/19 03/29/19 03/29/19 11:48 11:48 18:24 WBC RBC Hgb 7.8 L Hct 23.2 L RDW Plt Count Lymph % (Auto) [place] % (Auto) Lymph # Seg Neutrophils % Seg Neuts % (Manual) Lymphocytes % (Manual) Monocytes % (Manual) Nucleated RBC % Seg Neutrophils # Seg Neutrophils # Man Lymphocytes # (Manual) Monocytes # (Manual) PT 15.3 H INR 1.24 H D-Dimer Heparin Anti-Xa Level POC ABG pH ABG pH POC ABG pCO2 POC ABG pO2 ABG pO2 ABG HCO3 ABG O2 Saturation ABG Base Excess ABG Hemoglobin Oxyhemoglobin Sodium Potassium Chloride Carbon Dioxide BUN Creatinine Glucose POC Glucose 122 H Lactic Acid Calcium Ionized Calcium Phosphorus Magnesium Iron TIBC Ferritin Total Bilirubin Direct Bilirubin AST ALT Alkaline Phosphatase Total Creatine Kinase CK-MB (CK-2) Troponin T C-Reactive Protein Total Protein Albumin Triglycerides LDL Cholesterol Direct HDL Cholesterol Free T4 PTH Intact Urine WBC (Auto) Urine Creatinine Salicylates Acetaminophen Crossmatch 03/30/19 03/30/19 03/30/19 00:40 04:31 05:04 WBC RBC Hgb 7.6 L Hct 23.0 L RDW Plt Count Lymph % (Auto) [place] % (Auto) Lymph # Seg Neutrophils % Seg Neuts % (Manual) Lymphocytes % (Manual) Monocytes % (Manual) Nucleated RBC % Seg Neutrophils # Seg Neutrophils # Man Lymphocytes # (Manual) Monocytes # (Manual) PT INR D-Dimer Heparin Anti-Xa Level POC ABG pH 7.346 L ABG pH POC ABG pCO2 POC ABG pO2 62 L ABG pO2 ABG HCO3 ABG O2 Saturation ABG Base Excess ABG Hemoglobin Oxyhemoglobin Sodium Potassium Chloride Carbon Dioxide BUN 79 H Creatinine 6.4 H Glucose POC Glucose Lactic Acid Calcium 6.1 L D Ionized Calcium Phosphorus Magnesium Iron TIBC Ferritin Total Bilirubin Direct Bilirubin AST ALT Alkaline Phosphatase Total Creatine Kinase CK-MB (CK-2) Troponin T C-Reactive Protein Total Protein Albumin Triglycerides LDL Cholesterol Direct HDL Cholesterol Free T4 PTH Intact Urine WBC (Auto) Urine Creatinine Salicylates Acetaminophen Crossmatch 03/30/19 03/30/19 03/30/19 08:45 12:09 22:43 WBC 14.3 H RBC 2.33 L Hgb 7.0 L 7.4 L Hct 21.0 L 22.3 L RDW 15.6 H Plt Count 135 L Lymph % (Auto) [place] % (Auto) Lymph # Seg Neutrophils % Seg Neuts % (Manual) Lymphocytes % (Manual) Monocytes % (Manual) Nucleated RBC % Seg Neutrophils # Seg Neutrophils # Man Lymphocytes # (Manual) Monocytes # (Manual) PT INR D-Dimer Heparin Anti-Xa Level POC ABG pH ABG pH POC ABG pCO2 POC ABG pO2 ABG pO2 ABG HCO3 ABG O2 Saturation ABG Base Excess ABG Hemoglobin Oxyhemoglobin Sodium Potassium Chloride Carbon Dioxide BUN Creatinine Glucose POC Glucose Lactic Acid Calcium Ionized Calcium 3.7 L Phosphorus Magnesium Iron TIBC Ferritin Total Bilirubin Direct Bilirubin AST ALT Alkaline Phosphatase Total Creatine Kinase CK-MB (CK-2) Troponin T C-Reactive Protein Total Protein Albumin Triglycerides LDL Cholesterol Direct HDL Cholesterol Free T4 PTH Intact Urine WBC (Auto) Urine Creatinine Salicylates Acetaminophen Crossmatch 03/30/19 03/30/19 03/31/19 23:38 Unknown 04:44 WBC 11.5 H RBC 2.40 L Hgb 7.3 L Hct 21.9 L RDW 15.4 H Plt Count Lymph % (Auto) 10.6 L [place] % (Auto) Lymph # Seg Neutrophils % 81.7 H Seg Neuts % (Manual) Lymphocytes % (Manual) Monocytes % (Manual) Nucleated RBC % Seg Neutrophils # 9.4 H Seg Neutrophils # Man Lymphocytes # (Manual) Monocytes # (Manual) PT INR D-Dimer Heparin Anti-Xa Level POC ABG pH ABG pH POC ABG pCO2 POC ABG pO2 ABG pO2 ABG HCO3 ABG O2 Saturation ABG Base Excess ABG Hemoglobin Oxyhemoglobin Sodium Potassium Chloride Carbon Dioxide BUN Creatinine Glucose POC Glucose 155 H Lactic Acid Calcium Ionized Calcium Phosphorus Magnesium Iron TIBC Ferritin Total Bilirubin Direct Bilirubin 0.4 H AST 63 H ALT Alkaline Phosphatase Total Creatine Kinase CK-MB (CK-2) Troponin T C-Reactive Protein Total Protein 4.9 L Albumin 2.2 L Triglycerides LDL Cholesterol Direct HDL Cholesterol Free T4 PTH Intact Urine WBC (Auto) Urine Creatinine Salicylates Acetaminophen Crossmatch 03/31/19 03/31/19 03/31/19 04:44 05:44 08:20 WBC RBC Hgb Hct RDW Plt Count Lymph % (Auto) [place] % (Auto) Lymph # Seg Neutrophils % Seg Neuts % (Manual) Lymphocytes % (Manual) Monocytes % (Manual) Nucleated RBC % Seg Neutrophils # Seg Neutrophils # Man Lymphocytes # (Manual) Monocytes # (Manual) PT INR D-Dimer Heparin Anti-Xa Level POC ABG pH ABG pH POC ABG pCO2 53.5 H POC ABG pO2 62 L ABG pO2 ABG HCO3 ABG O2 Saturation ABG Base Excess ABG Hemoglobin Oxyhemoglobin Sodium 135 L Potassium Chloride 96.7 L Carbon Dioxide 19 L BUN 94 H Creatinine 7.8 H Glucose POC Glucose Lactic Acid Calcium 5.3 L* Ionized Calcium Phosphorus 8.20 H Magnesium Iron TIBC Ferritin Total Bilirubin Direct Bilirubin 0.4 H AST 60 H ALT Alkaline Phosphatase Total Creatine Kinase CK-MB (CK-2) Troponin T C-Reactive Protein Total Protein 4.8 L Albumin 2.1 L Triglycerides LDL Cholesterol Direct HDL Cholesterol Free T4 PTH Intact Urine WBC (Auto) Urine Creatinine Salicylates Acetaminophen Crossmatch 03/31/19 04/01/19 04/01/19 22:14 04:27 04:27 WBC RBC 2.60 L Hgb 8.0 L Hct 24.1 L RDW 15.7 H Plt Count Lymph % (Auto) 7.9 L [place] % (Auto) Lymph # 0.7 L Seg Neutrophils % 83.6 H Seg Neuts % (Manual) Lymphocytes % (Manual) Monocytes % (Manual) Nucleated RBC % Seg Neutrophils # Seg Neutrophils # Man Lymphocytes # (Manual) Monocytes # (Manual) PT INR D-Dimer Heparin Anti-Xa Level POC ABG pH 7.286 L ABG pH POC ABG pCO2 54.7 H POC ABG pO2 179 H ABG pO2 ABG HCO3 ABG O2 Saturation ABG Base Excess ABG Hemoglobin Oxyhemoglobin Sodium Potassium Chloride Carbon Dioxide BUN 68 H Creatinine 6.6 H Glucose POC Glucose Lactic Acid Calcium 6.5 L D Ionized Calcium Phosphorus 7.30 H Magnesium Iron TIBC Ferritin Total Bilirubin Direct Bilirubin AST ALT Alkaline Phosphatase Total Creatine Kinase 1652 H CK-MB (CK-2) Troponin T C-Reactive Protein Total Protein Albumin Triglycerides LDL Cholesterol Direct HDL Cholesterol Free T4 PTH Intact Urine WBC (Auto) Urine Creatinine Salicylates Acetaminophen Crossmatch 04/01/19 04/01/19 04/01/19 05:14 05:37 18:37 WBC RBC Hgb Hct RDW Plt Count Lymph % (Auto) [place] % (Auto) Lymph # Seg Neutrophils % Seg Neuts % (Manual) Lymphocytes % (Manual) Monocytes % (Manual) Nucleated RBC % Seg Neutrophils # Seg Neutrophils # Man Lymphocytes # (Manual) Monocytes # (Manual) PT INR D-Dimer Heparin Anti-Xa Level POC ABG pH 7.283 L ABG pH POC ABG pCO2 53.4 H POC ABG pO2 241 H ABG pO2 ABG HCO3 ABG O2 Saturation ABG Base Excess ABG Hemoglobin Oxyhemoglobin Sodium Potassium Chloride Carbon Dioxide BUN Creatinine Glucose POC Glucose 111 H 119 H Lactic Acid Calcium Ionized Calcium Phosphorus Magnesium Iron TIBC Ferritin Total Bilirubin Direct Bilirubin AST ALT Alkaline Phosphatase Total Creatine Kinase CK-MB (CK-2) Troponin T C-Reactive Protein Total Protein Albumin Triglycerides LDL Cholesterol Direct HDL Cholesterol Free T4 PTH Intact Urine WBC (Auto) Urine Creatinine Salicylates Acetaminophen Crossmatch 04/01/19 04/02/19 04/02/19 21:28 04:40 05:03 WBC RBC 2.36 L Hgb 7.2 L Hct 21.9 L RDW 16.0 H Plt Count Lymph % (Auto) 10.8 L [place] % (Auto) Lymph # 0.8 L Seg Neutrophils % 80.3 H Seg Neuts % (Manual) Lymphocytes % (Manual) Monocytes % (Manual) Nucleated RBC % Seg Neutrophils # Seg Neutrophils # Man Lymphocytes # (Manual) Monocytes # (Manual) PT INR D-Dimer Heparin Anti-Xa Level POC ABG pH 7.299 L 7.300 L ABG pH POC ABG pCO2 48.2 H 45.2 H POC ABG pO2 133 H 107 H ABG pO2 ABG HCO3 ABG O2 Saturation ABG Base Excess ABG Hemoglobin Oxyhemoglobin Sodium Potassium Chloride Carbon Dioxide BUN Creatinine Glucose POC Glucose Lactic Acid Calcium Ionized Calcium Phosphorus Magnesium Iron TIBC Ferritin Total Bilirubin Direct Bilirubin AST ALT Alkaline Phosphatase Total Creatine Kinase CK-MB (CK-2) Troponin T C-Reactive Protein Total Protein Albumin Triglycerides LDL Cholesterol Direct HDL Cholesterol Free T4 PTH Intact Urine WBC (Auto) Urine Creatinine Salicylates Acetaminophen Crossmatch 04/02/19 04/02/19 04/02/19 05:03 05:03 12:15 WBC RBC Hgb 7.4 L Hct 22.6 L RDW Plt Count Lymph % (Auto) [place] % (Auto) Lymph # Seg Neutrophils % Seg Neuts % (Manual) Lymphocytes % (Manual) Monocytes % (Manual) Nucleated RBC % Seg Neutrophils # Seg Neutrophils # Man Lymphocytes # (Manual) Monocytes # (Manual) PT INR D-Dimer Heparin Anti-Xa Level POC ABG pH ABG pH POC ABG pCO2 POC ABG pO2 ABG pO2 ABG HCO3 ABG O2 Saturation ABG Base Excess ABG Hemoglobin Oxyhemoglobin Sodium 136 L Potassium Chloride 97.8 L Carbon Dioxide 18 L BUN 82 H Creatinine 8.2 H Glucose POC Glucose Lactic Acid Calcium 6.7 L Ionized Calcium Phosphorus 7.50 H Magnesium Iron 26 L TIBC 138 L Ferritin 607.0 H Total Bilirubin Direct Bilirubin AST ALT Alkaline Phosphatase Total Creatine Kinase CK-MB (CK-2) Troponin T C-Reactive Protein Total Protein Albumin Triglycerides LDL Cholesterol Direct HDL Cholesterol Free T4 PTH Intact Urine WBC (Auto) Urine Creatinine Salicylates Acetaminophen Crossmatch 04/02/19 04/02/19 04/03/19 16:34 17:14 04:18 WBC RBC Hgb Hct RDW Plt Count Lymph % (Auto) [place] % (Auto) Lymph # Seg Neutrophils % Seg Neuts % (Manual) Lymphocytes % (Manual) Monocytes % (Manual) Nucleated RBC % Seg Neutrophils # Seg Neutrophils # Man Lymphocytes # (Manual) Monocytes # (Manual) PT INR D-Dimer Heparin Anti-Xa Level POC ABG pH ABG pH POC ABG pCO2 POC ABG pO2 146 H ABG pO2 ABG HCO3 ABG O2 Saturation ABG Base Excess ABG Hemoglobin Oxyhemoglobin Sodium Potassium Chloride Carbon Dioxide BUN Creatinine Glucose POC Glucose 108 H Lactic Acid Calcium Ionized Calcium Phosphorus Magnesium Iron TIBC Ferritin Total Bilirubin Direct Bilirubin AST ALT Alkaline Phosphatase Total Creatine Kinase CK-MB (CK-2) Troponin T C-Reactive Protein Total Protein Albumin Triglycerides LDL Cholesterol Direct HDL Cholesterol Free T4 PTH Intact Urine WBC (Auto) Urine Creatinine Salicylates Acetaminophen Crossmatch See Detail 04/03/19 04/03/19 04/03/19 04:25 08:30 18:24 WBC RBC 2.40 L Hgb 7.3 L Hct 21.9 L RDW Plt Count Lymph % (Auto) [place] % (Auto) 7.7 H Lymph # 0.9 L Seg Neutrophils % 74.6 H Seg Neuts % (Manual) Lymphocytes % (Manual) Monocytes % (Manual) Nucleated RBC % Seg Neutrophils # Seg Neutrophils # Man Lymphocytes # (Manual) Monocytes # (Manual) PT INR D-Dimer Heparin Anti-Xa Level POC ABG pH ABG pH POC ABG pCO2 POC ABG pO2 ABG pO2 ABG HCO3 ABG O2 Saturation ABG Base Excess ABG Hemoglobin Oxyhemoglobin Sodium 136 L Potassium Chloride 97.0 L Carbon Dioxide BUN 58 H Creatinine 7.3 H Glucose POC Glucose 106 H Lactic Acid Calcium 7.5 L Ionized Calcium Phosphorus 5.80 H D Magnesium Iron TIBC Ferritin Total Bilirubin Direct Bilirubin AST ALT Alkaline Phosphatase Total Creatine Kinase CK-MB (CK-2) Troponin T C-Reactive Protein Total Protein Albumin Triglycerides LDL Cholesterol Direct HDL Cholesterol Free T4 PTH Intact Urine WBC (Auto) Urine Creatinine Salicylates Acetaminophen Crossmatch 04/03/19 04/04/19 04/04/19 23:43 04:47 04:47 WBC RBC 2.72 L Hgb 8.3 L Hct 24.7 L RDW 15.6 H Plt Count Lymph % (Auto) [place] % (Auto) 10.1 H Lymph # 0.8 L Seg Neutrophils % 71.4 H Seg Neuts % (Manual) Lymphocytes % (Manual) Monocytes % (Manual) Nucleated RBC % Seg Neutrophils # Seg Neutrophils # Man Lymphocytes # (Manual) Monocytes # (Manual) PT INR D-Dimer Heparin Anti-Xa Level POC ABG pH ABG pH POC ABG pCO2 POC ABG pO2 ABG pO2 123.8 H ABG HCO3 ABG O2 Saturation ABG Base Excess -3.0 L ABG Hemoglobin 7.9 L Oxyhemoglobin Sodium 134 L Potassium Chloride 97.9 L Carbon Dioxide BUN 64 H Creatinine 8.1 H Glucose POC Glucose Lactic Acid Calcium 7.2 L Ionized Calcium Phosphorus Magnesium Iron TIBC Ferritin Total Bilirubin Direct Bilirubin AST ALT Alkaline Phosphatase Total Creatine Kinase CK-MB (CK-2) Troponin T C-Reactive Protein Total Protein Albumin Triglycerides LDL Cholesterol Direct HDL Cholesterol Free T4 PTH Intact Urine WBC (Auto) Urine Creatinine Salicylates Acetaminophen Crossmatch 04/04/19 04/04/19 04/04/19 06:07 13:40 18:18 WBC RBC Hgb Hct RDW Plt Count Lymph % (Auto) [place] % (Auto) Lymph # Seg Neutrophils % Seg Neuts % (Manual) Lymphocytes % (Manual) Monocytes % (Manual) Nucleated RBC % Seg Neutrophils # Seg Neutrophils # Man Lymphocytes # (Manual) Monocytes # (Manual) PT INR D-Dimer Heparin Anti-Xa Level POC ABG pH ABG pH POC ABG pCO2 POC ABG pO2 ABG pO2 95.9 H ABG HCO3 ABG O2 Saturation ABG Base Excess -3.0 L ABG Hemoglobin 8.5 L Oxyhemoglobin Sodium Potassium Chloride Carbon Dioxide BUN Creatinine Glucose POC Glucose 107 H 107 H Lactic Acid Calcium Ionized Calcium Phosphorus Magnesium Iron TIBC Ferritin Total Bilirubin Direct Bilirubin AST ALT Alkaline Phosphatase Total Creatine Kinase CK-MB (CK-2) Troponin T C-Reactive Protein Total Protein Albumin Triglycerides LDL Cholesterol Direct HDL Cholesterol Free T4 PTH Intact Urine WBC (Auto) Urine Creatinine Salicylates Acetaminophen Crossmatch 04/04/19 04/05/19 04/05/19 21:22 04:09 04:09 WBC RBC 2.76 L Hgb 8.4 L Hct 25.4 L RDW 15.8 H Plt Count 133 L Lymph % (Auto) [place] % (Auto) 9.6 H Lymph # 0.7 L Seg Neutrophils % 72.6 H Seg Neuts % (Manual) Lymphocytes % (Manual) Monocytes % (Manual) Nucleated RBC % Seg Neutrophils # Seg Neutrophils # Man Lymphocytes # (Manual) Monocytes # (Manual) PT INR D-Dimer Heparin Anti-Xa Level POC ABG pH ABG pH POC ABG pCO2 47.2 H POC ABG pO2 137 H ABG pO2 ABG HCO3 ABG O2 Saturation ABG Base Excess ABG Hemoglobin Oxyhemoglobin Sodium 136 L Potassium Chloride Carbon Dioxide BUN 46 H Creatinine 6.7 H Glucose POC Glucose Lactic Acid Calcium 7.7 L Ionized Calcium Phosphorus Magnesium Iron TIBC Ferritin Total Bilirubin Direct Bilirubin AST ALT Alkaline Phosphatase Total Creatine Kinase CK-MB (CK-2) Troponin T C-Reactive Protein Total Protein Albumin Triglycerides LDL Cholesterol Direct HDL Cholesterol Free T4 PTH Intact Urine WBC (Auto) Urine Creatinine Salicylates Acetaminophen Crossmatch 04/05/19 04/05/19 04/05/19 05:28 06:14 16:50 WBC RBC Hgb Hct RDW Plt Count Lymph % (Auto) [place] % (Auto) Lymph # Seg Neutrophils % Seg Neuts % (Manual) Lymphocytes % (Manual) Monocytes % (Manual) Nucleated RBC % Seg Neutrophils # Seg Neutrophils # Man Lymphocytes # (Manual) Monocytes # (Manual) PT INR D-Dimer Heparin Anti-Xa Level POC ABG pH ABG pH POC ABG pCO2 POC ABG pO2 67 L ABG pO2 ABG HCO3 ABG O2 Saturation ABG Base Excess ABG Hemoglobin Oxyhemoglobin Sodium Potassium Chloride Carbon Dioxide BUN Creatinine Glucose POC Glucose 108 H Lactic Acid Calcium Ionized Calcium Phosphorus Magnesium Iron TIBC Ferritin Total Bilirubin Direct Bilirubin AST ALT Alkaline Phosphatase Total Creatine Kinase CK-MB (CK-2) Troponin T C-Reactive Protein Total Protein Albumin Triglycerides LDL Cholesterol Direct HDL Cholesterol Free T4 PTH Intact Urine WBC (Auto) 40.0 H Urine Creatinine Salicylates Acetaminophen Crossmatch 04/05/19 04/06/19 04/06/19 17:22 00:13 04:44 WBC RBC 2.48 L Hgb 7.5 L Hct 22.9 L RDW 16.0 H Plt Count 107 L Lymph % (Auto) [place] % (Auto) 10.7 H Lymph # 1.0 L Seg Neutrophils % Seg Neuts % (Manual) Lymphocytes % (Manual) Monocytes % (Manual) Nucleated RBC % Seg Neutrophils # Seg Neutrophils # Man Lymphocytes # (Manual) Monocytes # (Manual) PT INR D-Dimer Heparin Anti-Xa Level POC ABG pH ABG pH POC ABG pCO2 POC ABG pO2 ABG pO2 ABG HCO3 ABG O2 Saturation ABG Base Excess ABG Hemoglobin Oxyhemoglobin Sodium Potassium Chloride Carbon Dioxide BUN Creatinine Glucose POC Glucose 118 H 138 H Lactic Acid Calcium Ionized Calcium Phosphorus Magnesium Iron TIBC Ferritin Total Bilirubin Direct Bilirubin AST ALT Alkaline Phosphatase Total Creatine Kinase CK-MB (CK-2) Troponin T C-Reactive Protein Total Protein Albumin Triglycerides LDL Cholesterol Direct HDL Cholesterol Free T4 PTH Intact Urine WBC (Auto) Urine Creatinine Salicylates Acetaminophen Crossmatch 04/06/19 04/06/19 04/06/19 04:44 05:20 05:23 WBC RBC Hgb Hct RDW Plt Count Lymph % (Auto) [place] % (Auto) Lymph # Seg Neutrophils % Seg Neuts % (Manual) Lymphocytes % (Manual) Monocytes % (Manual) Nucleated RBC % Seg Neutrophils # Seg Neutrophils # Man Lymphocytes # (Manual) Monocytes # (Manual) PT INR D-Dimer Heparin Anti-Xa Level POC ABG pH ABG pH POC ABG pCO2 POC ABG pO2 ABG pO2 104.0 H ABG HCO3 ABG O2 Saturation ABG Base Excess -2.1 L ABG Hemoglobin 7.3 L Oxyhemoglobin Sodium Potassium Chloride Carbon Dioxide BUN 64 H Creatinine 8.2 H Glucose 103 H POC Glucose 118 H Lactic Acid Calcium 7.3 L Ionized Calcium Phosphorus Magnesium Iron TIBC Ferritin Total Bilirubin Direct Bilirubin AST ALT Alkaline Phosphatase Total Creatine Kinase CK-MB (CK-2) Troponin T C-Reactive Protein Total Protein Albumin Triglycerides LDL Cholesterol Direct HDL Cholesterol Free T4 PTH Intact Urine WBC (Auto) Urine Creatinine Salicylates Acetaminophen Crossmatch 04/06/19 04/07/19 04/07/19 12:02 05:40 05:40 WBC RBC 2.59 L Hgb 7.9 L Hct 23.8 L RDW 15.8 H Plt Count 89 L Lymph % (Auto) [place] % (Auto) 10.3 H Lymph # 1.1 L Seg Neutrophils % Seg Neuts % (Manual) Lymphocytes % (Manual) Monocytes % (Manual) Nucleated RBC % Seg Neutrophils # Seg Neutrophils # Man Lymphocytes # (Manual) Monocytes # (Manual) PT INR D-Dimer Heparin Anti-Xa Level POC ABG pH ABG pH POC ABG pCO2 POC ABG pO2 ABG pO2 ABG HCO3 ABG O2 Saturation ABG Base Excess ABG Hemoglobin Oxyhemoglobin Sodium 136 L Potassium 3.5 L Chloride Carbon Dioxide BUN 46 H Creatinine 6.2 H Glucose POC Glucose 108 H Lactic Acid Calcium 7.9 L Ionized Calcium Phosphorus Magnesium Iron TIBC Ferritin Total Bilirubin Direct Bilirubin AST ALT Alkaline Phosphatase Total Creatine Kinase CK-MB (CK-2) Troponin T C-Reactive Protein Total Protein Albumin Triglycerides LDL Cholesterol Direct HDL Cholesterol Free T4 PTH Intact Urine WBC (Auto) Urine Creatinine Salicylates Acetaminophen Crossmatch 04/07/19 12:57 WBC RBC Hgb Hct RDW Plt Count Lymph % (Auto) [place] % (Auto) Lymph # Seg Neutrophils % Seg Neuts % (Manual) Lymphocytes % (Manual) Monocytes % (Manual) Nucleated RBC % Seg Neutrophils # Seg Neutrophils # Man Lymphocytes # (Manual) Monocytes # (Manual) PT INR D-Dimer Heparin Anti-Xa Level POC ABG pH ABG pH POC ABG pCO2 POC ABG pO2 107 H ABG pO2 ABG HCO3 ABG O2 Saturation ABG Base Excess ABG Hemoglobin Oxyhemoglobin Sodium Potassium Chloride Carbon Dioxide BUN Creatinine Glucose POC Glucose Lactic Acid Calcium Ionized Calcium Phosphorus Magnesium Iron TIBC Ferritin Total Bilirubin Direct Bilirubin AST ALT Alkaline Phosphatase Total Creatine Kinase CK-MB (CK-2) Troponin T C-Reactive Protein Total Protein Albumin Triglycerides LDL Cholesterol Direct HDL Cholesterol Free T4 PTH Intact Urine WBC (Auto) Urine Creatinine Salicylates Acetaminophen Crossmatch Chest x-ray: image reviewed Allied health notes reviewed: RT
[2019-04-09] MEDS: BACITRACIN ZINC OINT 28.4 GM TP PRN (03:47)
[2019-04-09] MEDS: METOPROLOL TARTRATE 25 MG TAB PO SCH ×4 (03:53→21:50)
[2019-04-09 05:24] LABS: Basophils # (Auto) 0.1 K/mm3 (0.0-0.1); Basophils % (Auto) 0.8 % (0.0-1.8); Eosinophils # (Auto) 0.2 K/mm3 (0.0-0.4); Eosinophils % (Auto) 2.1 % (0.0-4.3); Hematocrit 26.2 % (35.5-45.6); Hemoglobin 8.7 gm/dl (11.8-15.2); Lymphocytes % (Auto) 13.4 % (13.4-35.0); Mean Corpuscular HGB Conc 33 % (32-34); Mean Corpuscular Volume 92 fl (84-94); Monocytes # (Auto) 0.8 K/mm3 (0.0-0.8); Monocytes % (Auto) 10.4 % (0.0-7.3); Platelet Count 152 K/mm3 (140-440); Red Blood Count 2.85 M/mm3 (3.65-5.03); Red Cell Distribution Width 15.6 % (13.2-15.2)
[2019-04-09 05:48] LABS: Calcium 8.2 mg/dL (8.4-10.2)
--- NOTE | 2019-04-09 06:25 | Hem/Onc Progress Note ---
Assessment and Plan 1. h/o Anemia. The patient has history of bleeding. 2. Internal jugular partial thrombosis. The patient was started on heparin. This has been held due to bleeding 3. Gastrointestinal bleed. 4. h/o Elevated creatinine kinase. 5. h/o Low calcium. 6. h/o Thrombocytopenia. 7. h/o Renal failure. 8. h/o Intubation. 9. Transfusion support. 10. Leukocytosis. At this time, supportive care may help the patient. The patient's platelet had been low at admission. Urine toxicology was negative. awake extubated dvt - off anticoagulation - due to bleeding platelet - > 100 s/p iv iron trial - Patient Problems (1) DVT (deep venous thrombosis) Current Visit: Yes Status: Acute Subjective Date of service: 04/09/19 Principal diagnosis: anemia - DVT IJ Interval history: extubated Objective - Exam Narrative Exam: Pain - none now General appearance - awake - extubated Performance status limited self care Eyes - no icterus ENT - extubated LNs cervical not palpable Neck - no LN Respiratory Normal Breath sounds - CTA anteriorly CVS S1 S2 + Extremities edema + General GI Soft Rectal deferred male - deferred Skin warm Musculoskeletal awake Neurologically awake - Constitutional Vitals: Last Vital Signs Temp 99.3 F 04/09/19 04:00 Pulse 76 04/09/19 05:31 Resp 37 H 04/09/19 05:31 BP 158/78 04/09/19 05:31 Pulse Ox 97 04/09/19 05:31 - Labs Lab Results: Laboratory Results - last 24 hr 04/08/19 04/09/19 04/09/19 23:16 04:28 04:28 WBC 7.5 RBC 2.85 L Hgb 8.7 L Hct 26.2 L MCV 92 MCH 31 MCHC 33 RDW 15.6 H Plt Count 152 Lymph % (Auto) 13.4 Andrews % (Auto) 10.4 H Eos % (Auto) 2.1 Baso % (Auto) 0.8 Lymph # 1.0 L Andrews # 0.8 Eos # 0.2 Baso # 0.1 Seg Neutrophils % 73.3 H Seg Neutrophils # 5.5 Sodium 138 Potassium 3.5 L Chloride 97.8 L Carbon Dioxide 22 Anion Gap 22 BUN 62 H Creatinine 8.1 H Estimated GFR 7 BUN/Creatinine Ratio 8 Glucose 80 POC Glucose 96 Calcium 8.2 L Phosphorus 5.10 H 10/14/19 05:23 WBC RBC Hgb Hct MCV MCH MCHC RDW Plt Count Lymph % (Auto) Andrews % (Auto) Eos % (Auto) Baso % (Auto) Lymph # Andrews # Eos # Baso # Seg Neutrophils % Seg Neutrophils # Sodium Potassium Chloride Carbon Dioxide Anion Gap BUN Creatinine Estimated GFR BUN/Creatinine Ratio Glucose POC Glucose 70 Calcium Phosphorus Medications & Allergies - Medications Allergies/Adverse Reactions: Allergies No Known Allergies Allergy (Unverified 03/16/19 17:17) Home Medications: Home Medications Medication Instructions Recorded Confirmed Last Taken Type Unobtainable 03/18/19 03/18/19 Unknown History Active Medications: Generic Name Dose Route Start Last Admin Trade Name Freq PRN Reason Stop Dose Admin Acetaminophen 650 mg 04/02/19 23:26 04/06/19 00:22 Tylenol PO 650 mg Q4H PRN Administration Pain, Mild (1-3),temp>100.5 Albuterol 2.5 mg 03/29/19 13:08 Proventil IH Q4HRT PRN Shortness Of Breath Amiodarone HCl 400 mg 04/04/19 12:00 04/08/19 22:29 Cordarone PO 400 mg TID PAOLO Administration Lipase/Protease/Amylase 1 each 03/17/19 14:[address] 10,500 Unit FEEDTUBE PRN PRN For Clogged Feeding Tube Bacitracin 1 applic 04/09/19 02:43 04/09/19 03:47 Antibiotic Oint TP 1 applic PRN PRN Administration upper lip sore/open Calcium Acetate 1,334 mg 03/31/19 14:00 04/08/19 22:29 Phoslo PO 1,334 mg TID PAOLO Administration Dextrose 50 gm 03/19/19 18:39 03/26/19 23:26 D50w (25gm) Vial IV 50 gm PRN PRN Administration Hypoglycemia Epoetin Jet 20,000 unit 03/31/19 10:15 04/06/19 10:41 Procrit SUB-Q 20,000 unit NEYMAR PRN Administration hemodialysis Fentanyl 50 mcg 03/26/19 12:00 04/05/19 14:47 Sublimaze IV 50 mcg Q1H PRN Administration Pain, Moderate (4-6) Hydrophilic Ointment 1 applic 03/16/19 15:50 Vaseline Lip Therapy TP Q2HR PRN Dry Lips Sodium Chloride 100 mls @ 999 mls/hr 04/04/19 10:00 Nacl 0.9% IV NEYMAR PRN Hypotension Dextrose/Sodium Chloride 1,000 mls @ 42 mls/hr 04/07/19 19:00 04/08/19 15:00 D5/0.45ns IV 0 mls/hr DIRECT PAOLO Infusion Metoprolol Tartrate 12.5 mg 04/05/19 10:00 04/09/19 03:53 Lopressor PO 12.5 mg Q6H PAOLO Administration Multi-Ingred Cream/Lotion/Oil/Oint 1 applic 03/16/19 15:50 03/19/19 20:10 Artificial Tears Ophth Oint OU 1 applic Q4HR PRN Administration Dry Eye(s) Ondansetron HCl 4 mg 03/16/19 22:21 04/06/19 23:50 Zofran IV 4 mg Q8H PRN Administration Nausea And Vomiting Pantoprazole Sodium 40 mg 04/04/19 22:00 04/08/19 22:29 Protonix IV 40 mg BID PAOLO Administration Paricalcitol 2 mcg 03/30/19 10:00 04/08/19 10:00 Zemplar IV 2 mcg DAILY PAOLO Administration Simple Syrup 15 ml 03/17/19 14:45 03/26/19 23:19 Simple Syrup FEEDTUBE 15 ml PRN PRN Administration Hypoglycemia Simple Syrup 30 ml 03/17/19 14:45 Simple Syrup FEEDTUBE PRN PRN Hypoglycemia Sodium Bicarbonate 325 mg 03/17/19 14:45 Sodium Bicarbonate FEEDTUBE PRN PRN For Clogged Feeding Tube
[2019-04-09] MEDS ORDERED: SODIUM CHLORIDE 0.9% 100 ML IV PRN (07:02)
--- NOTE | 2019-04-09 07:02 | Progress Note ---
Assessment and Plan 1. Acute kidney injury: Vasomotor RUBEN in the setting of shock / volume depletion / Rhabdo. Baseline renal function is unknown. CT abdomen was negative for obstructive nephropathy. Monitor renal function. Renal prognosis is guarded. Avoid nephrotoxic agents. Meds dosage based on GFR. Patient was started on hemodialysis on 03/18/19 due to worsening metabolic acidosis and hyperkalemia. Hemodialysis: 03/18, 03/19, 03/20, 03/22, 03/23, 03/24, 03/26, 03/28, 03/29, 03/31, 04/02, 04/04, 04/06, 04/09. 2. FEN: Hyperkalemia, improved. Hyponatremia, improved. Metabolic acidosis, on maintenance HD. Volume overload, UF with HD as tolerated. Hypocalcemia, likely multifactorial. On Phoslo and Zemplar. Monitor lytes. 3. Septic shock: Followed by ID. Currently off pressors. 4. Rhabdomyolysis: Improved. 5. SVT / V.tach: Followed by Cards. 6. Respiratory failure: Extubated. 7. Severe anemia: S/p PRBC. On Epogen. 8. A.fib with RVR. 9. Elevated transaminases. 10. Encephalopathy. Examination: General appearance: well-developed, appears stated age, obese HEENT: Atraumatic EYES: Pupils reacting to light Neck: supple Respiratory: CTAB, decreased breath sounds Cardiology: irregular, S1S2 heard, no murmur Gastrointestinal: no tenderness, obese, BS heard Integumentary: no rash noted Neurologic: follows command, conversing, MS is improving Ext: 1+ edema of all 4 extremities Hemodialysis access: R IJ temp catheter Subjective Date of service: 04/09/19 Principal diagnosis: C-P arrest, resp failure, PAF w RVR, ARF, Septic shock, VT, Asp pneumonia Interval history: Patient was seen and examined at the bedside. Objective - Vital Signs Vital signs: Vital Signs - 12hr 04/08/19 04/08/19 04/08/19 19:30 19:35 20:00 Temperature 98 F Pulse Rate 77 77 Pulse Rate [ 103 H From Monitor] Respiratory 31 H 31 H Rate Blood Pressure 128/64 119/65 O2 Sat by Pulse 98 100 97 Oximetry 04/08/19 04/08/19 04/08/19 20:30 21:00 21:30 Temperature Pulse Rate 113 H 76 80 Pulse Rate [ From Monitor] Respiratory 30 H 30 H 37 H Rate Blood Pressure 114/70 117/63 133/71 O2 Sat by Pulse 97 97 97 Oximetry 04/08/19 04/08/19 04/08/19 22:00 22:29 22:30 Temperature Pulse Rate 78 78 107 H Pulse Rate [ From Monitor] Respiratory 36 H 36 H Rate Blood Pressure 123/65 126/64 128/71 O2 Sat by Pulse 96 96 Oximetry 04/08/19 04/08/19 04/08/19 23:00 23:01 23:30 Temperature Pulse Rate 102 H 108 H 73 Pulse Rate [ From Monitor] Respiratory 39 H 37 H 35 H Rate Blood Pressure 129/73 129/73 131/67 O2 Sat by Pulse 96 96 96 Oximetry 04/08/19 04/09/19 04/09/19 23:45 00:00 00:30 Temperature 99.5 F Pulse Rate 76 76 Pulse Rate [ From Monitor] Respiratory 37 H 37 H Rate Blood Pressure 122/63 129/69 O2 Sat by Pulse 96 96 96 Oximetry 04/09/19 04/09/19 04/09/19 01:00 01:30 02:00 Temperature Pulse Rate 76 111 H 117 H Pulse Rate [ From Monitor] Respiratory 28 H 38 H 34 H Rate Blood Pressure 133/77 127/79 140/80 O2 Sat by Pulse 97 96 96 Oximetry 04/09/19 04/09/19 04/09/19 02:31 03:01 03:31 Temperature Pulse Rate 76 105 H 114 H Pulse Rate [ From Monitor] Respiratory 32 H 31 H 22 Rate Blood Pressure 152/64 166/87 152/64 O2 Sat by Pulse 98 98 98 Oximetry 04/09/19 04/09/19 04/09/19 03:53 04:00 04:31 Temperature 99.3 F Pulse Rate 77 77 75 Pulse Rate [ From Monitor] Respiratory 25 H 25 H Rate Blood Pressure 124/70 130/71 131/71 O2 Sat by Pulse 98 99 Oximetry 04/09/19 04/09/19 05:01 05:31 Temperature Pulse Rate 99 H 76 Pulse Rate [ From Monitor] Respiratory 34 H 37 H Rate Blood Pressure 133/85 158/78 O2 Sat by Pulse 98 97 Oximetry - Lab 04/09/19 04:28 04/09/19 04:28 Most recent lab results ABG pH 7.388 pH Units (7.350-7.450) 04/06/19 05:20 ABG pCO2 38.5 mm Hg 04/06/19 05:20 ABG pO2 104.0 mm Hg (80.0-90.0) H 04/06/19 05:20 ABG HCO3 22.6 mmol/L (20.0-26.0) 04/06/19 05:20 ABG O2 Saturation 97.8 % (95.0-99.0) 04/06/19 05:20 Calcium 8.2 mg/dL (8.4-10.2) L 04/09/19 04:28 Phosphorus 5.10 mg/dL (2.5-4.5) H 04/09/19 04:28 Magnesium 1.90 mg/dL (1.7-2.3) 03/31/19 15:07 Urine Creatinine 106.6 mg/dL (0.1-20.0) H 03/17/19 16:05 Urine Sodium 95 mmol/L 03/17/19 16:05 Medications & Allergies - Medications Allergies/Adverse Reactions: Allergies No Known Allergies Allergy (Unverified 03/16/19 17:17) Home Medications: Home Medications Medication Instructions Recorded Confirmed Last Taken Type Unobtainable 03/18/19 03/18/19 Unknown History Active Medications: Generic Name Dose Route Start Last Admin Trade Name Freq PRN Reason Stop Dose Admin Acetaminophen 650 mg 04/02/19 23:26 04/06/19 00:22 Tylenol PO 650 mg Q4H PRN Administration Pain, Mild (1-3),temp>100.5 Albuterol 2.5 mg 03/29/19 13:08 Proventil IH Q4HRT PRN Shortness Of Breath Amiodarone HCl 400 mg 04/04/19 12:00 04/08/19 22:29 Cordarone PO 400 mg TID PAOLO Administration Lipase/Protease/Amylase 1 each 03/17/19 14:45 Pancrekarly Purcell 10,500 Unit FEEDTUBE PRN PRN For Clogged Feeding Tube Bacitracin 1 applic 04/09/19 02:43 04/09/19 03:47 Antibiotic Oint TP 1 applic PRN PRN Administration upper lip sore/open Calcium Acetate 1,334 mg 03/31/19 14:00 04/08/19 22:29 Phoslo PO 1,334 mg TID PAOLO Administration Dextrose 50 gm 03/19/19 18:39 03/26/19 23:26 D50w (25gm) Vial IV 50 gm PRN PRN Administration Hypoglycemia Epoetin Jet 20,000 unit 03/31/19 10:15 04/06/19 10:41 Procrit SUB-Q 20,000 unit NEYMAR PRN Administration hemodialysis Fentanyl 50 mcg 03/26/19 12:00 04/05/19 14:47 Sublimaze IV 50 mcg Q1H PRN Administration Pain, Moderate (4-6) Hydrophilic Ointment 1 applic 03/16/19 15:50 Vaseline Lip Therapy TP Q2HR PRN Dry Lips Sodium Chloride 100 mls @ 999 mls/hr 04/04/19 10:00 Nacl 0.9% IV NEYMAR PRN Hypotension Dextrose/Sodium Chloride 1,000 mls @ 42 mls/hr 04/07/19 19:00 04/08/19 15:00 D5/0.45ns IV 0 mls/hr DIRECT PAOLO Infusion Metoprolol Tartrate 12.5 mg 04/05/19 10:00 04/09/19 03:53 Lopressor PO 12.5 mg Q6H PAOLO Administration Multi-Ingred Cream/Lotion/Oil/Oint 1 applic 03/16/19 15:50 03/19/19 20:10 Artificial Tears Ophth Oint OU 1 applic Q4HR PRN Administration Dry Eye(s) Ondansetron HCl 4 mg 03/16/19 22:21 04/06/19 23:50 Zofran IV 4 mg Q8H PRN Administration Nausea And Vomiting Pantoprazole Sodium 40 mg 04/04/19 22:00 04/08/19 22:29 Protonix IV 40 mg BID PAOLO Administration Paricalcitol 2 mcg 03/30/19 10:00 04/08/19 10:00 Zemplar IV 2 mcg DAILY PAOLO Administration Simple Syrup 15 ml 03/17/19 14:45 03/26/19 23:19 Simple Syrup FEEDTUBE 15 ml PRN PRN Administration Hypoglycemia Simple Syrup 30 ml 03/17/19 14:45 Simple Syrup FEEDTUBE PRN PRN Hypoglycemia Sodium Bicarbonate 325 mg 03/17/19 14:45 Sodium Bicarbonate FEEDTUBE PRN PRN For Clogged Feeding Tube
[2019-04-09] MEDS: CALCIUM ACETATE 667 MG CAP PO SCH ×3 (08:00→21:50)
[2019-04-09] MEDS: AMIODARONE 200 MG TAB PO SCH ×3 (08:00→21:49)
[2019-04-09] MEDS: PARICALCITOL 2 MCG/1 ML INJ IV SCH (10:00)
[2019-04-09] MEDS: PANTOPRAZOLE 40 MG INJ IV SCH (10:00)
--- NOTE | 2019-04-09 10:44 | Progress Note ---
Assessment and Plan Cultures: 03/16/2019 sputum: salivary contamination 03/16/2019 Blood culture: no growth 03/17/2019 Urine culture no growth 03/17/2019 throat culture: no growth 03/26/2019 Blood culture: no growth 03/27/2019 Blood culture negative. 04/04/2019 blood culture NGTD 04/05/2019 urine culture: no growth Assessment: 43y/o male with possible psych history admitted on 03/16/2019 with: 1) Septic shock: Resolved. Fever after right IJ exchanged overwire on 03/27, fever is better; leukocytosis resolved. Fever source is unclear - suspect IJ DVT ?thrombophlebitis, other ?NMS ?sinusitis, ?drug fever. Brain MRI showed no acute intracranial abnormality, mild nonspecific chronic white matter changes, fluid throughout the sinuses and mastoid air cells. Venous US + right IJ DVT. Completed empiric Cefepime x 10 days on 04/06/2019. Initial septic shock - Possible Infectious etiology v/s possibility of N euroleptic Malignant Syndrome given psych history, high fever of 105F and extremely elevated CPK of >100K. Unclear if he was on any psych med. From ID standpoint, we will continue broad coverage for acute bacterial meningitis, tick borne illness, aspiration pneumonia. Blood culture negative UA with mild pyuria. HIV rapid negative. Strep A rapid ag negative. No obvious infectious source identified yet. 2) Probable aspiration pneumonia: Already completed adequate abx. 3) Acute respiratory failure: on the vent. Improving. 4) ?Right axillary edema: no abscess, US no collection seen 5) Acute encephalopathy: improving, awake, alert, calm. CT head showed diffuse cerebral edema ?artifact. But too unstable for LP at this time. Low suspicion for HSV meningoencephalitis given the degree of his initial shock and clinical status. Given nationwide acyclovir shortage and low suspicion, would not recommend IV Ganciclovir at this time. 6) Acute renal failure: renally dosing all abx, now on HD 7) Elevated LFTs/shock liver: also likely elevated from Rhabdomyolysis. Viral hepatitis panel negative. LFTs continue to improve. 8) Thrombocytopenia: multifactorial - better 9) Rhabdomyolysis: CK continues to improve 10) ?Enteritis: per CT ? no collection no perforation no obvious ischemic bowel. Gen. Surg following Recommendations: Continue to monitor off abx. No fever or leucocytosis Continue supportive care and wound care Katherine Elizabeth MD, FACP [facility] ([facility]) C: [phone] O: [phone] F: [phone] Subjective Date of service: 04/09/19 Principal diagnosis: anemia - DVT IJ Interval history: Getting dialysis in room. Appears more drowsy today. No fever. Objective - Exam Narrative Exam: Physical Exam: Constitutional: drowsy. No acute distress Head, Ears, Nose: Normocephalic, atraumatic. External ears, nose normal Eyes: Conjunctivae/corneas clear. No icterus. No ptosis. Neck: Supple, no meningeal signs. R IJ HD cath + Cardiovascular: S1, S2 normal. Respiratory: Good air entry, clear to auscultation bilaterally GI: Soft, non-tender; bowel sounds normal. No peritoneal signs Musculoskeletal: anasarca+, pedal and scrotal edema + Skin: No rash or abscess Hem/Lymphatic: No palpable cervical or supraclavicular nodes. No lymphangitis Psych: drowsy Neurological: drowsy - Constitutional Vitals: Vital Signs Temp Pulse Resp BP Pulse Ox 99.3 F 116 H 37 H 180/110 98 04/09/19 07:40 04/09/19 10:00 04/09/19 07:40 04/09/19 10:00 04/09/19 07:40 Temperature -Last 24 Hours Temperature 99.3 F Temperature 99.3 F Temperature 99.5 F Temperature 98 F Temperature 97.8 F Temperature 99 F Temperature 99.4 F - Labs CBC & Chem 7: 04/09/19 04:28 04/09/19 04:28 Labs: Abnormal lab results 04/09/19 04/09/19 Range/Units 04:28 04:28 RBC 2.85 L (3.65-5.03) M/mm3 Hgb 8.7 L (11.8-15.2) gm/dl Hct 26.2 L (35.5-45.6) % RDW 15.6 H (13.2-15.2) % Cameron % (Auto) 10.4 H (0.0-7.3) % Lymph # 1.0 L (1.2-5.4) K/mm3 Seg Neutrophils % 73.3 H (40.0-70.0) % Potassium 3.5 L (3.6-5.0) mmol/L Chloride 97.8 L (98-107) mmol/L BUN 62 H (9-20) mg/dL Creatinine 8.1 H (0.8-1.5) mg/dL Calcium 8.2 L (8.4-10.2) mg/dL Phosphorus 5.10 H (2.5-4.5) mg/dL
--- NOTE | 2019-04-09 11:54 | Progress Note ---
Assessment and Plan Severe sepsis with shock. Right axilla abscess versus localized pannus/fatty collection. Acute hypoxemic respiratory failure, s/p mechanical ventilator support. Likely aspiration pneumonia, bilateral. Morbid obesity. Acute kidney injury secondary to ATN on HD. Leukocytosis-resolved Elevated serum transaminases/possible shock liver. Acute encephalopathy, toxic metabolic Thrombocytopenia- etiology, multifactorial- improving RIJ non-occlusive thrombus Oropharyngeal dysphagia Acute blood loss anemia with hemorrhagic shock- resolved Critical illness myopathy -Encouraged to continue to adhere to nocturnal BIPAP -wean FiO2 for O2 sats>92% -CRYPTOLOGIC TECHNICIAN to evaluate and treat -Monitor QTc as he is on multiple medications that can prolong QT - Contiue to monitor off antibiotics - continue HD/UF per nephrology -Aspiration precautions, HOB >40 - prn analgesia per CPOT score - prn supportive blood transfusions to keep HgB > 7.0 - Monitor hemodynamics closely - continue mobility protocols and off loading as tolerated for pressure ulcer prevention - continue to avoid nephrotoxins, adjust all medications for GFR and CRCL - continue GI & VTE prophylaxis ( SCDs and therapeutic pantoprazole, dosed for renal function) - accuchecks with glycemic control per SSI for target BG of 140-180 mg/dl - avoid hypoglycemia -PT/OT/CRYPTOLOGIC TECHNICIAN -Plan to transfer to IMCU in the morning CONDITION: IMPROVING PROGNOSIS: FAIR CODE STATUS: DNAR Subjective Date of service: 04/09/19 Principal diagnosis: anemia - DVT IJ Interval history: Patient is seen today for: Severe sepsis with shock; Acute hypoxemic respiratory failure; Aspiration pneumonia; Morbid obesity; Rhabdomyolysis; Acute kidney injury; Morbid obesity; Elevated serum transaminases/possible shock liver; Acute encephalopathy (Toxic/Met) Seen and examined at bedside; 24hour events reviewed; nursing and respiratory care staff consulted; no adverse overnight events reported to me; resting peacefully in bed; Was able to tolerate his pills with water this morning. No fevers. Vitals, labs, medications, chart and imaging reviewed. Objective Vital Signs - 12hr 04/09/19 04/09/19 04/09/19 00:00 00:30 01:00 Temperature Pulse Rate 76 76 76 Respiratory 37 H 37 H 28 H Rate Blood Pressure 122/63 129/69 133/77 O2 Sat by Pulse 96 96 97 Oximetry O2 Sat by Pulse Oximetry [ Anterior Bilateral Throughout] 04/09/19 04/09/19 04/09/19 01:30 02:00 02:31 Temperature Pulse Rate 111 H 117 H 76 Respiratory 38 H 34 H 32 H Rate Blood Pressure 127/79 140/80 152/64 O2 Sat by Pulse 96 96 98 Oximetry O2 Sat by Pulse Oximetry [ Anterior Bilateral Throughout] 04/09/19 04/09/19 04/09/19 03:01 03:31 03:53 Temperature Pulse Rate 105 H 114 H 77 Respiratory 31 H 22 Rate Blood Pressure 166/87 152/64 124/70 O2 Sat by Pulse 98 98 Oximetry O2 Sat by Pulse Oximetry [ Anterior Bilateral Throughout] 04/09/19 04/09/19 04/09/19 04:00 04:31 05:01 Temperature 99.3 F Pulse Rate 77 75 99 H Respiratory 25 H 25 H 34 H Rate Blood Pressure 130/71 131/71 133/85 O2 Sat by Pulse 98 99 98 Oximetry O2 Sat by Pulse Oximetry [ Anterior Bilateral Throughout] 04/09/19 04/09/19 04/09/19 05:31 07:40 07:45 Temperature 99.3 F Pulse Rate 76 93 H 91 H Respiratory 37 H 37 H Rate Blood Pressure 158/78 160/91 164/94 O2 Sat by Pulse 97 Oximetry O2 Sat by Pulse 98 Oximetry [ Anterior Bilateral Throughout] 04/09/19 04/09/19 04/09/19 08:00 08:15 08:30 Temperature Pulse Rate 76 123 H 120 H Respiratory Rate Blood Pressure 162/92 158/107 173/101 O2 Sat by Pulse Oximetry O2 Sat by Pulse Oximetry [ Anterior Bilateral Throughout] 04/09/19 04/09/19 04/09/19 08:45 09:00 09:15 Temperature Pulse Rate 78 81 122 H Respiratory Rate Blood Pressure 185/101 178/90 185/110 O2 Sat by Pulse Oximetry O2 Sat by Pulse Oximetry [ Anterior Bilateral Throughout] 04/09/19 04/09/19 04/09/19 09:30 09:45 10:00 Temperature Pulse Rate 125 H 108 H 116 H Respiratory Rate Blood Pressure 180/111 170/101 180/110 O2 Sat by Pulse Oximetry O2 Sat by Pulse Oximetry [ Anterior Bilateral Throughout] 04/09/19 04/09/19 04/09/19 10:15 10:30 10:45 Temperature Pulse Rate 79 119 H 78 Respiratory Rate Blood Pressure 180/82 169/97 186/98 O2 Sat by Pulse Oximetry O2 Sat by Pulse Oximetry [ Anterior Bilateral Throughout] 04/09/19 04/09/19 04/09/19 11:00 11:15 11:30 Temperature Pulse Rate 78 78 77 Respiratory Rate Blood Pressure 186/98 177/91 188/94 O2 Sat by Pulse Oximetry O2 Sat by Pulse Oximetry [ Anterior Bilateral Throughout] Constitutional: no acute distress, alert Eyes: non-icteric ENT: oropharynx moist, other ( ulcers over his upper lip) Neck: supple, no lymphadenopathy, no JVD, other (large neck circumference, RIJ trialysis catheter) Effort: mildly labored Ascultation: Bilateral: diminished breath sounds, rales, rhonchi Percussion: Bilateral: not dull Cardiovascular: regular rate and rhythm, other ( S1,S2, no murmurs) Gastrointestinal: normoactive bowel sounds, soft, non-tender Integumentary: normal, other (blisters with some weeping over the extremities) Extremities: no cyanosis, pink and warm, pulses normal, no ischemia or petechiae, edema Neurologic: normal mental status, non-focal exam (grossly), pupils equal and round, CN II-XII normal, other (obeys commands, globally weak) Psychiatric: mood appropriate, affect normal CBC and BMP: 04/09/19 04:28 04/09/19 04:28 ABG, PT/INR, D-dimer: ABG POC ABG pH 7.401 (7.35-7.45) 04/07/19 12:57 ABG pH 7.388 pH Units (7.350-7.450) 04/06/19 05:20 POC ABG pCO2 41.5 (35-45) 04/07/19 12:57 ABG pCO2 38.5 mm Hg 04/06/19 05:20 POC ABG pO2 107 (80-105) H 04/07/19 12:57 ABG pO2 104.0 mm Hg (80.0-90.0) H 04/06/19 05:20 POC ABG HCO3 25.7 (22-26 mml/L) 04/07/19 12:57 POC ABG Total CO2 27 (23-27mmol/L) 04/07/19 12:57 POC ABG O2 Sat 98 04/07/19 12:57 ABG O2 Saturation 97.8 % (95.0-99.0) 04/06/19 05:20 PT/INR, D-dimer PT 15.3 Sec. (12.2-14.9) H 03/29/19 11:48 INR 1.24 (0.87-1.13) H 03/29/19 11:48 D-Dimer 4845.98 ng/mlDDU (0-234) H 03/28/19 12:00 Abnormal lab findings: Abnormal Labs 03/16/19 03/16/19 03/16/19 15:32 16:03 16:05 WBC 27.0 H RBC 5.55 H Hgb 15.7 H Hct 47.1 H RDW Plt Count 75 L Lymph % (Auto) [place] % (Auto) Lymph # Seg Neutrophils % Seg Neuts % (Manual) 85.0 H Lymphocytes % (Manual) 2.0 L Monocytes % (Manual) Nucleated RBC % Seg Neutrophils # Seg Neutrophils # Man 23.0 H Lymphocytes # (Manual) 0.5 L Monocytes # (Manual) PT INR D-Dimer Heparin Anti-Xa Level POC ABG pH ABG pH POC ABG pCO2 POC ABG pO2 ABG pO2 ABG HCO3 ABG O2 Saturation ABG Base Excess ABG Hemoglobin Oxyhemoglobin Sodium 127 L Potassium Chloride 87.8 L Carbon Dioxide 17 L BUN 49 H Creatinine 5.8 H Glucose 150 H POC Glucose 118 H Lactic Acid Calcium 6.6 L Ionized Calcium Phosphorus Magnesium 1.10 L Iron TIBC Ferritin Total Bilirubin Direct Bilirubin AST ALT Alkaline Phosphatase Total Creatine Kinase 81491 H CK-MB (CK-2) Troponin T C-Reactive Protein Total Protein Albumin Triglycerides LDL Cholesterol Direct HDL Cholesterol Free T4 PTH Intact Urine WBC (Auto) Urine Creatinine Salicylates Acetaminophen Crossmatch 03/16/19 03/16/19 03/16/19 16:59 17:05 17:05 WBC RBC Hgb Hct RDW Plt Count Lymph % (Auto) [place] % (Auto) Lymph # Seg Neutrophils % Seg Neuts % (Manual) Lymphocytes % (Manual) Monocytes % (Manual) Nucleated RBC % Seg Neutrophils # Seg Neutrophils # Man Lymphocytes # (Manual) Monocytes # (Manual) PT INR D-Dimer Heparin Anti-Xa Level POC ABG pH 7.297 L ABG pH POC ABG pCO2 33.0 L POC ABG pO2 ABG pO2 ABG HCO3 ABG O2 Saturation ABG Base Excess ABG Hemoglobin Oxyhemoglobin Sodium Potassium Chloride Carbon Dioxide BUN Creatinine Glucose POC Glucose Lactic Acid Calcium Ionized Calcium Phosphorus Magnesium Iron TIBC Ferritin Total Bilirubin Direct Bilirubin AST ALT Alkaline Phosphatase Total Creatine Kinase 90387 H CK-MB (CK-2) 83.1 H Troponin T C-Reactive Protein Total Protein Albumin Triglycerides LDL Cholesterol Direct HDL Cholesterol Free T4 0.72 L PTH Intact Urine WBC (Auto) Urine Creatinine Salicylates Acetaminophen Crossmatch 03/16/19 03/16/19 03/16/19 17:05 17:05 17:05 WBC RBC Hgb Hct RDW Plt Count Lymph % (Auto) [place] % (Auto) Lymph # Seg Neutrophils % Seg Neuts % (Manual) Lymphocytes % (Manual) Monocytes % (Manual) Nucleated RBC % Seg Neutrophils # Seg Neutrophils # Man Lymphocytes # (Manual) Monocytes # (Manual) PT INR D-Dimer Heparin Anti-Xa Level POC ABG pH ABG pH POC ABG pCO2 POC ABG pO2 ABG pO2 ABG HCO3 ABG O2 Saturation ABG Base Excess ABG Hemoglobin Oxyhemoglobin Sodium Potassium Chloride Carbon Dioxide BUN Creatinine Glucose POC Glucose Lactic Acid 5.10 H* Calcium Ionized Calcium Phosphorus Magnesium Iron TIBC Ferritin Total Bilirubin Direct Bilirubin AST ALT Alkaline Phosphatase Total Creatine Kinase CK-MB (CK-2) Troponin T C-Reactive Protein Total Protein Albumin Triglycerides LDL Cholesterol Direct HDL Cholesterol Free T4 PTH Intact Urine WBC (Auto) Urine Creatinine Salicylates < 0.3 L Acetaminophen < 5.0 L Crossmatch 03/16/19 03/16/19 03/16/19 17:05 17:05 20:35 WBC RBC Hgb Hct RDW Plt Count Lymph % (Auto) [place] % (Auto) Lymph # Seg Neutrophils % Seg Neuts % (Manual) Lymphocytes % (Manual) Monocytes % (Manual) Nucleated RBC % Seg Neutrophils # Seg Neutrophils # Man Lymphocytes # (Manual) Monocytes # (Manual) PT 15.9 H INR 1.30 H D-Dimer Heparin Anti-Xa Level POC ABG pH ABG pH POC ABG pCO2 POC ABG pO2 ABG pO2 ABG HCO3 ABG O2 Saturation ABG Base Excess ABG Hemoglobin Oxyhemoglobin Sodium Potassium Chloride Carbon Dioxide BUN Creatinine Glucose POC Glucose Lactic Acid 3.30 H* Calcium Ionized Calcium Phosphorus Magnesium Iron TIBC Ferritin Total Bilirubin 6.20 H Direct Bilirubin 5.9 H AST 800 H ALT 120 H Alkaline Phosphatase Total Creatine Kinase CK-MB (CK-2) Troponin T C-Reactive Protein Total Protein 4.4 L Albumin 2.4 L Triglycerides LDL Cholesterol Direct HDL Cholesterol Free T4 PTH Intact Urine WBC (Auto) Urine Creatinine Salicylates Acetaminophen Crossmatch 03/16/19 03/16/19 03/16/19 21:45 22:32 Unknown WBC RBC Hgb Hct RDW Plt Count Lymph % (Auto) [place] % (Auto) Lymph # Seg Neutrophils % Seg Neuts % (Manual) Lymphocytes % (Manual) Monocytes % (Manual) Nucleated RBC % Seg Neutrophils # Seg Neutrophils # Man Lymphocytes # (Manual) Monocytes # (Manual) PT INR D-Dimer Heparin Anti-Xa Level POC ABG pH ABG pH POC ABG pCO2 POC ABG pO2 ABG pO2 ABG HCO3 ABG O2 Saturation ABG Base Excess ABG Hemoglobin Oxyhemoglobin Sodium Potassium Chloride Carbon Dioxide BUN Creatinine Glucose POC Glucose Lactic Acid 3.30 H* 3.00 H* Calcium Ionized Calcium Phosphorus Magnesium Iron TIBC Ferritin Total Bilirubin Direct Bilirubin AST ALT Alkaline Phosphatase Total Creatine Kinase CK-MB (CK-2) Troponin T 0.047 H D C-Reactive Protein Total Protein Albumin Triglycerides 395 H LDL Cholesterol Direct 10 L HDL Cholesterol 7 L Free T4 PTH Intact Urine WBC (Auto) Urine Creatinine Salicylates Acetaminophen Crossmatch 03/17/19 03/17/19 03/17/19 03:45 03:45 03:45 WBC RBC Hgb Hct RDW Plt Count Lymph % (Auto) [place] % (Auto) Lymph # Seg Neutrophils % Seg Neuts % (Manual) Lymphocytes % (Manual) Monocytes % (Manual) Nucleated RBC % Seg Neutrophils # Seg Neutrophils # Man Lymphocytes # (Manual) Monocytes # (Manual) PT INR D-Dimer Heparin Anti-Xa Level POC ABG pH ABG pH POC ABG pCO2 POC ABG pO2 ABG pO2 ABG HCO3 ABG O2 Saturation ABG Base Excess ABG Hemoglobin Oxyhemoglobin Sodium 131 L Potassium Chloride 88.9 L Carbon Dioxide BUN 53 H Creatinine 7.1 H Glucose POC Glucose Lactic Acid 4.10 H* Calcium 5.4 L* D Ionized Calcium Phosphorus 7.30 H Magnesium 1.60 L Iron TIBC Ferritin Total Bilirubin 5.90 H Direct Bilirubin AST 801 H ALT 109 H Alkaline Phosphatase Total Creatine Kinase 01583 H 65420 H CK-MB (CK-2) 41.5 H Troponin T 0.054 H C-Reactive Protein Total Protein 4.5 L Albumin 2.0 L Triglycerides LDL Cholesterol Direct HDL Cholesterol Free T4 PTH Intact Urine WBC (Auto) Urine Creatinine Salicylates Acetaminophen Crossmatch 03/17/19 03/17/19 03/17/19 05:47 07:16 07:16 WBC RBC Hgb Hct RDW Plt Count Lymph % (Auto) [place] % (Auto) Lymph # Seg Neutrophils % Seg Neuts % (Manual) Lymphocytes % (Manual) Monocytes % (Manual) Nucleated RBC % Seg Neutrophils # Seg Neutrophils # Man Lymphocytes # (Manual) Monocytes # (Manual) PT INR D-Dimer Heparin Anti-Xa Level POC ABG pH 7.193 L ABG pH POC ABG pCO2 45.2 H POC ABG pO2 65 L ABG pO2 ABG HCO3 ABG O2 Saturation ABG Base Excess ABG Hemoglobin Oxyhemoglobin Sodium Potassium Chloride Carbon Dioxide BUN Creatinine Glucose POC Glucose Lactic Acid 5.50 H* Calcium Ionized Calcium Phosphorus Magnesium Iron TIBC Ferritin Total Bilirubin Direct Bilirubin AST ALT Alkaline Phosphatase Total Creatine Kinase 98394 H CK-MB (CK-2) 54.3 H Troponin T 0.058 H C-Reactive Protein Total Protein Albumin Triglycerides LDL Cholesterol Direct HDL Cholesterol Free T4 PTH Intact Urine WBC (Auto) Urine Creatinine Salicylates Acetaminophen Crossmatch 03/17/19 03/17/19 03/17/19 11:52 12:51 13:01 WBC RBC Hgb Hct RDW Plt Count Lymph % (Auto) [place] % (Auto) Lymph # Seg Neutrophils % Seg Neuts % (Manual) Lymphocytes % (Manual) Monocytes % (Manual) Nucleated RBC % Seg Neutrophils # Seg Neutrophils # Man Lymphocytes # (Manual) Monocytes # (Manual) PT INR D-Dimer Heparin Anti-Xa Level POC ABG pH 7.154 L ABG pH POC ABG pCO2 34.3 L POC ABG pO2 73 L ABG pO2 ABG HCO3 ABG O2 Saturation ABG Base Excess ABG Hemoglobin Oxyhemoglobin Sodium Potassium Chloride Carbon Dioxide BUN Creatinine Glucose POC Glucose 60 L Lactic Acid 8.20 H* Calcium Ionized Calcium Phosphorus Magnesium Iron TIBC Ferritin Total Bilirubin Direct Bilirubin AST ALT Alkaline Phosphatase Total Creatine Kinase CK-MB (CK-2) Troponin T C-Reactive Protein Total Protein Albumin Triglycerides LDL Cholesterol Direct HDL Cholesterol Free T4 PTH Intact Urine WBC (Auto) Urine Creatinine Salicylates Acetaminophen Crossmatch 03/17/19 03/17/19 03/17/19 14:37 14:37 14:37 WBC 29.3 H RBC Hgb Hct RDW 15.8 H Plt Count 45 L Lymph % (Auto) [place] % (Auto) Lymph # Seg Neutrophils % Seg Neuts % (Manual) 81.0 H Lymphocytes % (Manual) 1.0 L Monocytes % (Manual) 15.0 H Nucleated RBC % Seg Neutrophils # Seg Neutrophils # Man 23.7 H Lymphocytes # (Manual) 0.3 L Monocytes # (Manual) 4.4 H PT INR D-Dimer Heparin Anti-Xa Level POC ABG pH ABG pH POC ABG pCO2 POC ABG pO2 ABG pO2 ABG HCO3 ABG O2 Saturation ABG Base Excess ABG Hemoglobin Oxyhemoglobin Sodium Potassium Chloride Carbon Dioxide BUN Creatinine Glucose POC Glucose Lactic Acid 4.90 H* Calcium Ionized Calcium Phosphorus Magnesium Iron TIBC Ferritin Total Bilirubin Direct Bilirubin AST ALT Alkaline Phosphatase Total Creatine Kinase CK-MB (CK-2) Troponin T C-Reactive Protein 24.90 H Total Protein Albumin Triglycerides LDL Cholesterol Direct HDL Cholesterol Free T4 PTH Intact Urine WBC (Auto) Urine Creatinine Salicylates Acetaminophen Crossmatch 03/17/19 03/17/19 03/17/19 16:05 16:05 17:02 WBC RBC Hgb Hct RDW Plt Count Lymph % (Auto) [place] % (Auto) Lymph # Seg Neutrophils % Seg Neuts % (Manual) Lymphocytes % (Manual) Monocytes % (Manual) Nucleated RBC % Seg Neutrophils # Seg Neutrophils # Man Lymphocytes # (Manual) Monocytes # (Manual) PT INR D-Dimer Heparin Anti-Xa Level POC ABG pH 7.183 L ABG pH POC ABG pCO2 POC ABG pO2 65 L ABG pO2 ABG HCO3 ABG O2 Saturation ABG Base Excess ABG Hemoglobin Oxyhemoglobin Sodium Potassium Chloride Carbon Dioxide BUN Creatinine Glucose POC Glucose Lactic Acid Calcium Ionized Calcium Phosphorus Magnesium Iron TIBC Ferritin Total Bilirubin Direct Bilirubin AST ALT Alkaline Phosphatase Total Creatine Kinase CK-MB (CK-2) Troponin T C-Reactive Protein Total Protein Albumin Triglycerides LDL Cholesterol Direct HDL Cholesterol Free T4 PTH Intact Urine WBC (Auto) 30.0 H Urine Creatinine 106.6 H Salicylates Acetaminophen Crossmatch 03/18/19 03/18/19 03/18/19 05:12 05:16 05:53 WBC RBC Hgb Hct RDW Plt Count Lymph % (Auto) [place] % (Auto) Lymph # Seg Neutrophils % Seg Neuts % (Manual) Lymphocytes % (Manual) Monocytes % (Manual) Nucleated RBC % Seg Neutrophils # Seg Neutrophils # Man Lymphocytes # (Manual) Monocytes # (Manual) PT INR D-Dimer Heparin Anti-Xa Level POC ABG pH 7.257 L ABG pH POC ABG pCO2 31.6 L POC ABG pO2 69 L ABG pO2 ABG HCO3 ABG O2 Saturation ABG Base Excess ABG Hemoglobin Oxyhemoglobin Sodium Potassium Chloride Carbon Dioxide BUN Creatinine Glucose POC Glucose 141 H Lactic Acid 5.00 H* Calcium Ionized Calcium Phosphorus Magnesium Iron TIBC Ferritin Total Bilirubin Direct Bilirubin AST ALT Alkaline Phosphatase Total Creatine Kinase CK-MB (CK-2) Troponin T C-Reactive Protein Total Protein Albumin Triglycerides LDL Cholesterol Direct HDL Cholesterol Free T4 PTH Intact Urine WBC (Auto) Urine Creatinine Salicylates Acetaminophen Crossmatch 03/18/19 03/18/19 03/18/19 06:57 08:40 08:40 WBC 31.7 H RBC Hgb Hct RDW 15.5 H Plt Count 35 L Lymph % (Auto) [place] % (Auto) Lymph # Seg Neutrophils % Seg Neuts % (Manual) Lymphocytes % (Manual) Monocytes % (Manual) Nucleated RBC % Seg Neutrophils # Seg Neutrophils # Man Lymphocytes # (Manual) Monocytes # (Manual) PT INR D-Dimer Heparin Anti-Xa Level POC ABG pH ABG pH POC ABG pCO2 POC ABG pO2 ABG pO2 ABG HCO3 ABG O2 Saturation ABG Base Excess ABG Hemoglobin Oxyhemoglobin Sodium 132 L Potassium 5.5 H D Chloride 88.5 L Carbon Dioxide 18 L BUN 71 H Creatinine 8.1 H Glucose 205 H POC Glucose Lactic Acid 5.00 H* Calcium 4.1 L* D Ionized Calcium Phosphorus Magnesium 2.40 H Iron TIBC Ferritin Total Bilirubin 7.50 H Direct Bilirubin AST 1088 H ALT 159 H Alkaline Phosphatase 190 H Total Creatine Kinase 680689 H CK-MB (CK-2) Troponin T C-Reactive Protein Total Protein 4.7 L Albumin 1.8 L Triglycerides LDL Cholesterol Direct HDL Cholesterol Free T4 PTH Intact Urine WBC (Auto) Urine Creatinine Salicylates Acetaminophen Crossmatch 03/18/19 03/18/19 03/18/19 12:33 12:50 13:19 WBC RBC Hgb Hct RDW Plt Count Lymph % (Auto) [place] % (Auto) Lymph # Seg Neutrophils % Seg Neuts % (Manual) Lymphocytes % (Manual) Monocytes % (Manual) Nucleated RBC % Seg Neutrophils # Seg Neutrophils # Man Lymphocytes # (Manual) Monocytes # (Manual) PT INR D-Dimer Heparin Anti-Xa Level POC ABG pH 7.282 L ABG pH POC ABG pCO2 POC ABG pO2 67 L ABG pO2 ABG HCO3 ABG O2 Saturation ABG Base Excess ABG Hemoglobin Oxyhemoglobin Sodium Potassium Chloride Carbon Dioxide BUN Creatinine Glucose POC Glucose 129 H Lactic Acid 3.30 H* Calcium Ionized Calcium Phosphorus Magnesium Iron TIBC Ferritin Total Bilirubin Direct Bilirubin AST ALT Alkaline Phosphatase Total Creatine Kinase CK-MB (CK-2) Troponin T C-Reactive Protein Total Protein Albumin Triglycerides LDL Cholesterol Direct HDL Cholesterol Free T4 PTH Intact Urine WBC (Auto) Urine Creatinine Salicylates Acetaminophen Crossmatch 03/18/19 03/18/19 03/18/19 13:19 16:50 18:11 WBC RBC Hgb Hct RDW Plt Count Lymph % (Auto) [place] % (Auto) Lymph # Seg Neutrophils % Seg Neuts % (Manual) Lymphocytes % (Manual) Monocytes % (Manual) Nucleated RBC % Seg Neutrophils # Seg Neutrophils # Man Lymphocytes # (Manual) Monocytes # (Manual) PT INR D-Dimer Heparin Anti-Xa Level POC ABG pH ABG pH POC ABG pCO2 POC ABG pO2 59 L ABG pO2 ABG HCO3 ABG O2 Saturation ABG Base Excess ABG Hemoglobin Oxyhemoglobin Sodium Potassium Chloride Carbon Dioxide BUN Creatinine Glucose POC Glucose 151 H Lactic Acid Calcium 4.2 L* Ionized Calcium Phosphorus Magnesium Iron TIBC Ferritin Total Bilirubin Direct Bilirubin AST ALT Alkaline Phosphatase Total Creatine Kinase 038555 H CK-MB (CK-2) Troponin T C-Reactive Protein Total Protein Albumin Triglycerides LDL Cholesterol Direct HDL Cholesterol Free T4 PTH Intact Urine WBC (Auto) Urine Creatinine Salicylates Acetaminophen Crossmatch 03/18/19 03/18/19 03/19/19 18:20 23:39 01:42 WBC RBC Hgb Hct RDW Plt Count Lymph % (Auto) [place] % (Auto) Lymph # Seg Neutrophils % Seg Neuts % (Manual) Lymphocytes % (Manual) Monocytes % (Manual) Nucleated RBC % Seg Neutrophils # Seg Neutrophils # Man Lymphocytes # (Manual) Monocytes # (Manual) PT INR D-Dimer Heparin Anti-Xa Level POC ABG pH 7.345 L ABG pH 7.285 L POC ABG pCO2 POC ABG pO2 59 L ABG pO2 44.0 L ABG HCO3 ABG O2 Saturation 70.9 L ABG Base Excess -5.7 L ABG Hemoglobin 11.9 L Oxyhemoglobin 69.6 L Sodium Potassium Chloride Carbon Dioxide BUN Creatinine Glucose POC Glucose 152 H Lactic Acid Calcium Ionized Calcium Phosphorus Magnesium Iron TIBC Ferritin Total Bilirubin Direct Bilirubin AST ALT Alkaline Phosphatase Total Creatine Kinase CK-MB (CK-2) Troponin T C-Reactive Protein Total Protein Albumin Triglycerides LDL Cholesterol Direct HDL Cholesterol Free T4 PTH Intact Urine WBC (Auto) Urine Creatinine Salicylates Acetaminophen Crossmatch 03/19/19 03/19/19 03/19/19 04:00 04:00 05:35 WBC 36.5 H RBC Hgb Hct RDW 15.8 H Plt Count 35 L Lymph % (Auto) [place] % (Auto) Lymph # Seg Neutrophils % Seg Neuts % (Manual) Lymphocytes % (Manual) Monocytes % (Manual) Nucleated RBC % Seg Neutrophils # Seg Neutrophils # Man Lymphocytes # (Manual) Monocytes # (Manual) PT INR D-Dimer Heparin Anti-Xa Level POC ABG pH ABG pH 7.265 L POC ABG pCO2 POC ABG pO2 ABG pO2 35.4 L* ABG HCO3 ABG O2 Saturation 54.4 L ABG Base Excess -6.7 L ABG Hemoglobin 12.9 L Oxyhemoglobin 53.4 L Sodium 132 L Potassium 5.7 H Chloride 89.8 L Carbon Dioxide 19 L BUN 62 H Creatinine 6.4 H Glucose 151 H POC Glucose Lactic Acid Calcium 5.2 L* D Ionized Calcium Phosphorus Magnesium Iron TIBC Ferritin Total Bilirubin 7.80 H Direct Bilirubin AST 682 H ALT 130 H Alkaline Phosphatase 167 H Total Creatine Kinase CK-MB (CK-2) Troponin T C-Reactive Protein Total Protein 4.8 L Albumin 2.3 L Triglycerides LDL Cholesterol Direct HDL Cholesterol Free T4 PTH Intact Urine WBC (Auto) Urine Creatinine Salicylates Acetaminophen Crossmatch 03/19/19 03/19/19 03/19/19 05:49 09:16 09:50 WBC RBC Hgb Hct RDW Plt Count Lymph % (Auto) [place] % (Auto) Lymph # Seg Neutrophils % Seg Neuts % (Manual) Lymphocytes % (Manual) Monocytes % (Manual) Nucleated RBC % Seg Neutrophils # Seg Neutrophils # Man Lymphocytes # (Manual) Monocytes # (Manual) PT INR D-Dimer Heparin Anti-Xa Level POC ABG pH 7.222 L ABG pH POC ABG pCO2 56.6 H POC ABG pO2 ABG pO2 ABG HCO3 ABG O2 Saturation ABG Base Excess ABG Hemoglobin Oxyhemoglobin Sodium Potassium Chloride Carbon Dioxide BUN Creatinine Glucose POC Glucose 154 H Lactic Acid 2.70 H* Calcium Ionized Calcium Phosphorus Magnesium Iron TIBC Ferritin Total Bilirubin Direct Bilirubin AST ALT Alkaline Phosphatase Total Creatine Kinase CK-MB (CK-2) Troponin T C-Reactive Protein Total Protein Albumin Triglycerides LDL Cholesterol Direct HDL Cholesterol Free T4 PTH Intact Urine WBC (Auto) Urine Creatinine Salicylates Acetaminophen Crossmatch 03/19/19 03/19/19 03/19/19 09:50 11:28 17:58 WBC RBC Hgb Hct RDW Plt Count Lymph % (Auto) [place] % (Auto) Lymph # Seg Neutrophils % Seg Neuts % (Manual) Lymphocytes % (Manual) Monocytes % (Manual) Nucleated RBC % Seg Neutrophils # Seg Neutrophils # Man Lymphocytes # (Manual) Monocytes # (Manual) PT INR D-Dimer Heparin Anti-Xa Level POC ABG pH 7.250 L ABG pH POC ABG pCO2 52.6 H POC ABG pO2 ABG pO2 ABG HCO3 ABG O2 Saturation ABG Base Excess ABG Hemoglobin Oxyhemoglobin Sodium Potassium Chloride Carbon Dioxide BUN Creatinine Glucose POC Glucose 160 H Lactic Acid Calcium Ionized Calcium Phosphorus Magnesium Iron TIBC Ferritin Total Bilirubin Direct Bilirubin AST ALT Alkaline Phosphatase Total Creatine Kinase 31271 H CK-MB (CK-2) Troponin T C-Reactive Protein Total Protein Albumin Triglycerides LDL Cholesterol Direct HDL Cholesterol Free T4 PTH Intact Urine WBC (Auto) Urine Creatinine Salicylates Acetaminophen Crossmatch 03/19/19 03/19/19 03/20/19 19:48 21:03 02:16 WBC RBC Hgb Hct RDW Plt Count Lymph % (Auto) [place] % (Auto) Lymph # Seg Neutrophils % Seg Neuts % (Manual) Lymphocytes % (Manual) Monocytes % (Manual) Nucleated RBC % Seg Neutrophils # Seg Neutrophils # Man Lymphocytes # (Manual) Monocytes # (Manual) PT INR D-Dimer Heparin Anti-Xa Level POC ABG pH 7.279 L ABG pH POC ABG pCO2 50.3 H POC ABG pO2 129 H ABG pO2 ABG HCO3 ABG O2 Saturation ABG Base Excess ABG Hemoglobin Oxyhemoglobin Sodium Potassium Chloride Carbon Dioxide BUN Creatinine Glucose POC Glucose 119 H 119 H Lactic Acid Calcium Ionized Calcium Phosphorus Magnesium Iron TIBC Ferritin Total Bilirubin Direct Bilirubin AST ALT Alkaline Phosphatase Total Creatine Kinase CK-MB (CK-2) Troponin T C-Reactive Protein Total Protein Albumin Triglycerides LDL Cholesterol Direct HDL Cholesterol Free T4 PTH Intact Urine WBC (Auto) Urine Creatinine Salicylates Acetaminophen Crossmatch 03/20/19 03/20/19 03/20/19 04:23 05:05 09:30 WBC 36.3 H RBC Hgb Hct RDW 15.5 H Plt Count 29 L Lymph % (Auto) [place] % (Auto) Lymph # Seg Neutrophils % Seg Neuts % (Manual) Lymphocytes % (Manual) Monocytes % (Manual) Nucleated RBC % Seg Neutrophils # Seg Neutrophils # Man Lymphocytes # (Manual) Monocytes # (Manual) PT INR D-Dimer Heparin Anti-Xa Level POC ABG pH ABG pH POC ABG pCO2 POC ABG pO2 280 H ABG pO2 ABG HCO3 ABG O2 Saturation ABG Base Excess ABG Hemoglobin Oxyhemoglobin Sodium Potassium Chloride Carbon Dioxide BUN Creatinine Glucose POC Glucose 115 H Lactic Acid Calcium Ionized Calcium Phosphorus Magnesium Iron TIBC Ferritin Total Bilirubin Direct Bilirubin AST ALT Alkaline Phosphatase Total Creatine Kinase CK-MB (CK-2) Troponin T C-Reactive Protein Total Protein Albumin Triglycerides LDL Cholesterol Direct HDL Cholesterol Free T4 PTH Intact Urine WBC (Auto) Urine Creatinine Salicylates Acetaminophen Crossmatch 03/20/19 03/20/19 03/20/19 09:30 09:30 11:34 WBC RBC Hgb Hct RDW Plt Count Lymph % (Auto) [place] % (Auto) Lymph # Seg Neutrophils % Seg Neuts % (Manual) Lymphocytes % (Manual) Monocytes % (Manual) Nucleated RBC % Seg Neutrophils # Seg Neutrophils # Man Lymphocytes # (Manual) Monocytes # (Manual) PT INR D-Dimer Heparin Anti-Xa Level POC ABG pH ABG pH POC ABG pCO2 POC ABG pO2 ABG pO2 ABG HCO3 ABG O2 Saturation ABG Base Excess ABG Hemoglobin Oxyhemoglobin Sodium 131 L Potassium Chloride 92.3 L Carbon Dioxide 20 L BUN 68 H Creatinine 6.1 H Glucose 164 H POC Glucose 141 H Lactic Acid Calcium 5.3 L* Ionized Calcium Phosphorus Magnesium Iron TIBC Ferritin Total Bilirubin 9.50 H Direct Bilirubin AST 381 H ALT 116 H Alkaline Phosphatase 255 H Total Creatine Kinase 91784 H CK-MB (CK-2) Troponin T C-Reactive Protein Total Protein 5.1 L Albumin 2.3 L Triglycerides LDL Cholesterol Direct HDL Cholesterol Free T4 PTH Intact Urine WBC (Auto) Urine Creatinine Salicylates Acetaminophen Crossmatch 03/20/19 03/20/19 03/20/19 14:41 14:45 18:50 WBC RBC Hgb Hct RDW Plt Count Lymph % (Auto) [place] % (Auto) Lymph # Seg Neutrophils % Seg Neuts % (Manual) Lymphocytes % (Manual) Monocytes % (Manual) Nucleated RBC % Seg Neutrophils # Seg Neutrophils # Man Lymphocytes # (Manual) Monocytes # (Manual) PT INR D-Dimer Heparin Anti-Xa Level POC ABG pH ABG pH POC ABG pCO2 POC ABG pO2 ABG pO2 ABG HCO3 ABG O2 Saturation ABG Base Excess ABG Hemoglobin Oxyhemoglobin Sodium Potassium Chloride Carbon Dioxide BUN Creatinine Glucose POC Glucose 117 H Lactic Acid 2.90 H* Calcium Ionized Calcium Phosphorus Magnesium Iron TIBC Ferritin Total Bilirubin Direct Bilirubin AST ALT Alkaline Phosphatase Total Creatine Kinase CK-MB (CK-2) Troponin T C-Reactive Protein 13.30 H Total Protein Albumin Triglycerides LDL Cholesterol Direct HDL Cholesterol Free T4 PTH Intact Urine WBC (Auto) Urine Creatinine Salicylates Acetaminophen Crossmatch 03/20/19 03/21/19 03/21/19 21:55 04:26 04:26 WBC 37.8 H RBC Hgb Hct RDW 15.4 H Plt Count 36 L Lymph % (Auto) [place] % (Auto) Lymph # Seg Neutrophils % Seg Neuts % (Manual) 93.0 H Lymphocytes % (Manual) 3.0 L Monocytes % (Manual) Nucleated RBC % 1.0 H Seg Neutrophils # 34.6 H Seg Neutrophils # Man 35.2 H Lymphocytes # (Manual) 1.1 L Monocytes # (Manual) PT INR D-Dimer Heparin Anti-Xa Level POC ABG pH ABG pH POC ABG pCO2 POC ABG pO2 ABG pO2 ABG HCO3 ABG O2 Saturation ABG Base Excess ABG Hemoglobin Oxyhemoglobin Sodium 131 L Potassium Chloride 90.7 L Carbon Dioxide 21 L BUN 69 H Creatinine 5.7 H Glucose 170 H POC Glucose 128 H Lactic Acid Calcium 6.1 L D Ionized Calcium Phosphorus Magnesium Iron TIBC Ferritin Total Bilirubin 9.50 H Direct Bilirubin AST 308 H ALT 124 H Alkaline Phosphatase 327 H Total Creatine Kinase 22537 H CK-MB (CK-2) Troponin T C-Reactive Protein Total Protein 5.7 L Albumin 2.6 L Triglycerides LDL Cholesterol Direct HDL Cholesterol Free T4 PTH Intact Urine WBC (Auto) Urine Creatinine Salicylates Acetaminophen Crossmatch 03/21/19 03/21/19 03/21/19 05:17 05:39 08:29 WBC RBC Hgb Hct RDW Plt Count Lymph % (Auto) [place] % (Auto) Lymph # Seg Neutrophils % Seg Neuts % (Manual) Lymphocytes % (Manual) Monocytes % (Manual) Nucleated RBC % Seg Neutrophils # Seg Neutrophils # Man Lymphocytes # (Manual) Monocytes # (Manual) PT INR D-Dimer Heparin Anti-Xa Level POC ABG pH ABG pH POC ABG pCO2 POC ABG pO2 209 H ABG pO2 ABG HCO3 ABG O2 Saturation ABG Base Excess ABG Hemoglobin Oxyhemoglobin Sodium Potassium Chloride Carbon Dioxide BUN Creatinine Glucose POC Glucose 145 H Lactic Acid Calcium Ionized Calcium Phosphorus Magnesium Iron TIBC Ferritin Total Bilirubin Direct Bilirubin AST ALT Alkaline Phosphatase Total Creatine Kinase 86521 H CK-MB (CK-2) Troponin T C-Reactive Protein Total Protein Albumin Triglycerides LDL Cholesterol Direct HDL Cholesterol Free T4 PTH Intact Urine WBC (Auto) Urine Creatinine Salicylates Acetaminophen Crossmatch 03/21/19 03/21/19 03/21/19 08:29 11:43 12:00 WBC RBC Hgb Hct RDW Plt Count Lymph % (Auto) [place] % (Auto) Lymph # Seg Neutrophils % Seg Neuts % (Manual) Lymphocytes % (Manual) Monocytes % (Manual) Nucleated RBC % Seg Neutrophils # Seg Neutrophils # Man Lymphocytes # (Manual) Monocytes # (Manual) PT INR D-Dimer Heparin Anti-Xa Level POC ABG pH ABG pH POC ABG pCO2 POC ABG pO2 ABG pO2 ABG HCO3 ABG O2 Saturation ABG Base Excess ABG Hemoglobin Oxyhemoglobin Sodium Potassium Chloride Carbon Dioxide BUN Creatinine Glucose POC Glucose 123 H Lactic Acid 2.60 H* 2.20 H* Calcium Ionized Calcium Phosphorus Magnesium Iron TIBC Ferritin Total Bilirubin Direct Bilirubin AST ALT Alkaline Phosphatase Total Creatine Kinase CK-MB (CK-2) Troponin T C-Reactive Protein Total Protein Albumin Triglycerides LDL Cholesterol Direct HDL Cholesterol Free T4 PTH Intact Urine WBC (Auto) Urine Creatinine Salicylates Acetaminophen Crossmatch 03/21/19 03/21/19 03/21/19 14:11 18:28 19:32 WBC RBC Hgb Hct RDW Plt Count Lymph % (Auto) [place] % (Auto) Lymph # Seg Neutrophils % Seg Neuts % (Manual) Lymphocytes % (Manual) Monocytes % (Manual) Nucleated RBC % Seg Neutrophils # Seg Neutrophils # Man Lymphocytes # (Manual) Monocytes # (Manual) PT INR D-Dimer Heparin Anti-Xa Level POC ABG pH 7.293 L ABG pH POC ABG pCO2 POC ABG pO2 ABG pO2 ABG HCO3 ABG O2 Saturation ABG Base Excess ABG Hemoglobin Oxyhemoglobin Sodium Potassium Chloride Carbon Dioxide BUN Creatinine Glucose POC Glucose 153 H Lactic Acid 2.10 H* Calcium Ionized Calcium Phosphorus Magnesium Iron TIBC Ferritin Total Bilirubin Direct Bilirubin AST ALT Alkaline Phosphatase Total Creatine Kinase CK-MB (CK-2) Troponin T C-Reactive Protein Total Protein Albumin Triglycerides LDL Cholesterol Direct HDL Cholesterol Free T4 PTH Intact Urine WBC (Auto) Urine Creatinine Salicylates Acetaminophen Crossmatch 03/21/19 03/22/19 03/22/19 23:38 05:08 05:51 WBC RBC Hgb Hct RDW Plt Count Lymph % (Auto) [place] % (Auto) Lymph # Seg Neutrophils % Seg Neuts % (Manual) Lymphocytes % (Manual) Monocytes % (Manual) Nucleated RBC % Seg Neutrophils # Seg Neutrophils # Man Lymphocytes # (Manual) Monocytes # (Manual) PT INR D-Dimer Heparin Anti-Xa Level POC ABG pH 7.283 L ABG pH POC ABG pCO2 POC ABG pO2 53 L ABG pO2 ABG HCO3 ABG O2 Saturation ABG Base Excess ABG Hemoglobin Oxyhemoglobin Sodium Potassium Chloride Carbon Dioxide BUN Creatinine Glucose POC Glucose 149 H 131 H Lactic Acid Calcium Ionized Calcium Phosphorus Magnesium Iron TIBC Ferritin Total Bilirubin Direct Bilirubin AST ALT Alkaline Phosphatase Total Creatine Kinase CK-MB (CK-2) Troponin T C-Reactive Protein Total Protein Albumin Triglycerides LDL Cholesterol Direct HDL Cholesterol Free T4 PTH Intact Urine WBC (Auto) Urine Creatinine Salicylates Acetaminophen Crossmatch 03/22/19 03/22/19 03/22/19 08:00 08:00 18:19 WBC 36.7 H RBC Hgb 11.0 L Hct 33.5 L RDW 15.5 H Plt Count 43 L Lymph % (Auto) [place] % (Auto) Lymph # Seg Neutrophils % Seg Neuts % (Manual) 87.0 H Lymphocytes % (Manual) 7.0 L Monocytes % (Manual) Nucleated RBC % Seg Neutrophils # Seg Neutrophils # Man 31.9 H Lymphocytes # (Manual) Monocytes # (Manual) PT INR D-Dimer Heparin Anti-Xa Level POC ABG pH ABG pH POC ABG pCO2 46.4 H POC ABG pO2 108 H ABG pO2 ABG HCO3 ABG O2 Saturation ABG Base Excess ABG Hemoglobin Oxyhemoglobin Sodium 132 L Potassium 5.6 H Chloride 89.6 L Carbon Dioxide 20 L BUN 101 H Creatinine 7.4 H Glucose 124 H POC Glucose Lactic Acid Calcium 5.2 L* Ionized Calcium Phosphorus Magnesium Iron TIBC Ferritin Total Bilirubin 2.80 H Direct Bilirubin AST 119 H ALT 86 H Alkaline Phosphatase 245 H Total Creatine Kinase CK-MB (CK-2) Troponin T C-Reactive Protein Total Protein 5.6 L Albumin 2.5 L Triglycerides LDL Cholesterol Direct HDL Cholesterol Free T4 PTH Intact Urine WBC (Auto) Urine Creatinine Salicylates Acetaminophen Crossmatch 03/22/19 03/23/19 03/23/19 20:37 04:49 05:28 WBC 35.9 H RBC Hgb 10.8 L Hct 33.2 L RDW 15.5 H Plt Count 49 L Lymph % (Auto) [place] % (Auto) Lymph # Seg Neutrophils % Seg Neuts % (Manual) 81.0 H Lymphocytes % (Manual) 3.5 L Monocytes % (Manual) Nucleated RBC % Seg Neutrophils # Seg Neutrophils # Man 29.1 H Lymphocytes # (Manual) Monocytes # (Manual) 1.4 H PT INR D-Dimer Heparin Anti-Xa Level POC ABG pH 7.296 L ABG pH POC ABG pCO2 46.2 H POC ABG pO2 ABG pO2 ABG HCO3 ABG O2 Saturation ABG Base Excess ABG Hemoglobin Oxyhemoglobin Sodium 129 L Potassium 5.2 H Chloride 91.1 L Carbon Dioxide BUN 91 H Creatinine 6.6 H Glucose 190 H POC Glucose Lactic Acid Calcium 5.3 L* Ionized Calcium Phosphorus Magnesium Iron TIBC Ferritin Total Bilirubin 1.80 H Direct Bilirubin AST 80 H ALT 62 H Alkaline Phosphatase 209 H Total Creatine Kinase 9758 H CK-MB (CK-2) Troponin T C-Reactive Protein Total Protein 5.2 L Albumin 2.2 L Triglycerides LDL Cholesterol Direct HDL Cholesterol Free T4 PTH Intact Urine WBC (Auto) Urine Creatinine Salicylates Acetaminophen Crossmatch 03/23/19 03/23/19 03/23/19 05:28 05:31 11:33 WBC 29.7 H RBC 3.59 L Hgb 10.1 L Hct 31.1 L RDW 15.4 H Plt Count 47 L Lymph % (Auto) [place] % (Auto) Lymph # Seg Neutrophils % Seg Neuts % (Manual) 89.0 H Lymphocytes % (Manual) 6.0 L Monocytes % (Manual) Nucleated RBC % 1.0 H Seg Neutrophils # Seg Neutrophils # Man 26.4 H Lymphocytes # (Manual) Monocytes # (Manual) PT INR D-Dimer Heparin Anti-Xa Level POC ABG pH ABG pH POC ABG pCO2 POC ABG pO2 ABG pO2 ABG HCO3 ABG O2 Saturation ABG Base Excess ABG Hemoglobin Oxyhemoglobin Sodium Potassium Chloride Carbon Dioxide BUN Creatinine Glucose POC Glucose 122 H 113 H Lactic Acid Calcium Ionized Calcium Phosphorus Magnesium Iron TIBC Ferritin Total Bilirubin Direct Bilirubin AST ALT Alkaline Phosphatase Total Creatine Kinase CK-MB (CK-2) Troponin T C-Reactive Protein Total Protein Albumin Triglycerides LDL Cholesterol Direct HDL Cholesterol Free T4 PTH Intact Urine WBC (Auto) Urine Creatinine Salicylates Acetaminophen Crossmatch 03/23/19 03/24/19 03/24/19 17:47 00:00 04:50 WBC 35.0 H RBC Hgb 10.4 L Hct 32.4 L RDW Plt Count 60 L Lymph % (Auto) [place] % (Auto) Lymph # Seg Neutrophils % Seg Neuts % (Manual) 93.0 H Lymphocytes % (Manual) 5.0 L Monocytes % (Manual) Nucleated RBC % 7.0 H Seg Neutrophils # Seg Neutrophils # Man 32.6 H Lymphocytes # (Manual) Monocytes # (Manual) PT INR D-Dimer Heparin Anti-Xa Level POC ABG pH ABG pH POC ABG pCO2 POC ABG pO2 ABG pO2 ABG HCO3 ABG O2 Saturation ABG Base Excess ABG Hemoglobin Oxyhemoglobin Sodium Potassium Chloride Carbon Dioxide BUN Creatinine Glucose POC Glucose 111 H 108 H Lactic Acid Calcium Ionized Calcium Phosphorus Magnesium Iron TIBC Ferritin Total Bilirubin Direct Bilirubin AST ALT Alkaline Phosphatase Total Creatine Kinase CK-MB (CK-2) Troponin T C-Reactive Protein Total Protein Albumin Triglycerides LDL Cholesterol Direct HDL Cholesterol Free T4 PTH Intact Urine WBC (Auto) Urine Creatinine Salicylates Acetaminophen Crossmatch 03/24/19 03/24/19 03/24/19 04:50 05:06 12:55 WBC RBC Hgb Hct RDW Plt Count Lymph % (Auto) [place] % (Auto) Lymph # Seg Neutrophils % Seg Neuts % (Manual) Lymphocytes % (Manual) Monocytes % (Manual) Nucleated RBC % Seg Neutrophils # Seg Neutrophils # Man Lymphocytes # (Manual) Monocytes # (Manual) PT INR D-Dimer Heparin Anti-Xa Level POC ABG pH ABG pH POC ABG pCO2 POC ABG pO2 ABG pO2 ABG HCO3 ABG O2 Saturation ABG Base Excess ABG Hemoglobin Oxyhemoglobin Sodium 134 L Potassium 5.1 H Chloride 95.3 L Carbon Dioxide 21 L BUN 85 H Creatinine 6.4 H Glucose 109 H POC Glucose 112 H 110 H Lactic Acid Calcium 5.8 L* Ionized Calcium Phosphorus Magnesium Iron TIBC Ferritin Total Bilirubin Direct Bilirubin AST ALT Alkaline Phosphatase Total Creatine Kinase 5747 H CK-MB (CK-2) Troponin T C-Reactive Protein Total Protein Albumin Triglycerides LDL Cholesterol Direct HDL Cholesterol Free T4 PTH Intact Urine WBC (Auto) Urine Creatinine Salicylates Acetaminophen Crossmatch 03/24/19 03/25/19 03/25/19 23:29 05:00 05:00 WBC RBC Hgb Hct RDW Plt Count Lymph % (Auto) [place] % (Auto) Lymph # Seg Neutrophils % Seg Neuts % (Manual) Lymphocytes % (Manual) Monocytes % (Manual) Nucleated RBC % Seg Neutrophils # Seg Neutrophils # Man Lymphocytes # (Manual) Monocytes # (Manual) PT INR D-Dimer Heparin Anti-Xa Level POC ABG pH ABG pH POC ABG pCO2 POC ABG pO2 ABG pO2 ABG HCO3 ABG O2 Saturation ABG Base Excess ABG Hemoglobin Oxyhemoglobin Sodium 133 L Potassium Chloride 94.0 L Carbon Dioxide 21 L BUN 81 H Creatinine 6.4 H Glucose POC Glucose 109 H Lactic Acid Calcium 5.5 L* Ionized Calcium Phosphorus Magnesium Iron TIBC Ferritin Total Bilirubin Direct Bilirubin AST 80 H ALT Alkaline Phosphatase 202 H Total Creatine Kinase 3589 H CK-MB (CK-2) Troponin T C-Reactive Protein Total Protein 5.3 L Albumin 2.4 L Triglycerides LDL Cholesterol Direct HDL Cholesterol Free T4 PTH Intact 329.9 H Urine WBC (Auto) Urine Creatinine Salicylates Acetaminophen Crossmatch 03/25/19 03/25/19 03/26/19 05:00 06:30 04:30 WBC 23.3 H RBC 3.61 L Hgb 10.2 L Hct 31.2 L RDW Plt Count 57 L Lymph % (Auto) [place] % (Auto) Lymph # Seg Neutrophils % Seg Neuts % (Manual) 92.0 H Lymphocytes % (Manual) 6.0 L Monocytes % (Manual) Nucleated RBC % Seg Neutrophils # Seg Neutrophils # Man 21.4 H Lymphocytes # (Manual) Monocytes # (Manual) PT INR D-Dimer Heparin Anti-Xa Level POC ABG pH ABG pH 7.326 L POC ABG pCO2 POC ABG pO2 ABG pO2 109.5 H 137.4 H ABG HCO3 18.8 L 18.6 L ABG O2 Saturation ABG Base Excess -4.4 L -6.8 L ABG Hemoglobin 10.1 L 9.9 L Oxyhemoglobin Sodium Potassium Chloride Carbon Dioxide BUN Creatinine Glucose POC Glucose Lactic Acid Calcium Ionized Calcium Phosphorus Magnesium Iron TIBC Ferritin Total Bilirubin Direct Bilirubin AST ALT Alkaline Phosphatase Total Creatine Kinase CK-MB (CK-2) Troponin T C-Reactive Protein Total Protein Albumin Triglycerides LDL Cholesterol Direct HDL Cholesterol Free T4 PTH Intact Urine WBC (Auto) Urine Creatinine Salicylates Acetaminophen Crossmatch 03/26/19 03/26/19 03/26/19 23:22 Unknown Unknown WBC 19.5 H RBC 3.44 L Hgb 9.8 L Hct 29.9 L RDW Plt Count 85 L Lymph % (Auto) [place] % (Auto) Lymph # Seg Neutrophils % Seg Neuts % (Manual) 95.0 H Lymphocytes % (Manual) 3.0 L Monocytes % (Manual) Nucleated RBC % Seg Neutrophils # Seg Neutrophils # Man 18.5 H Lymphocytes # (Manual) 0.6 L Monocytes # (Manual) PT INR D-Dimer Heparin Anti-Xa Level POC ABG pH ABG pH POC ABG pCO2 POC ABG pO2 ABG pO2 ABG HCO3 ABG O2 Saturation ABG Base Excess ABG Hemoglobin Oxyhemoglobin Sodium 135 L Potassium 5.2 H D Chloride 92.2 L Carbon Dioxide 18 L BUN 109 H Creatinine 8.5 H Glucose 117 H POC Glucose 69 L Lactic Acid Calcium 4.5 L* D Ionized Calcium Phosphorus Magnesium Iron TIBC Ferritin Total Bilirubin Direct Bilirubin AST ALT Alkaline Phosphatase Total Creatine Kinase 4527 H CK-MB (CK-2) Troponin T C-Reactive Protein Total Protein Albumin Triglycerides LDL Cholesterol Direct HDL Cholesterol Free T4 PTH Intact Urine WBC (Auto) Urine Creatinine Salicylates Acetaminophen Crossmatch 03/27/19 03/27/19 03/27/19 04:30 04:30 09:00 WBC 19.2 H RBC 3.42 L Hgb 9.9 L Hct 30.0 L RDW Plt Count 84 L Lymph % (Auto) [place] % (Auto) Lymph # Seg Neutrophils % Seg Neuts % (Manual) Lymphocytes % (Manual) Monocytes % (Manual) Nucleated RBC % Seg Neutrophils # Seg Neutrophils # Man Lymphocytes # (Manual) Monocytes # (Manual) PT INR D-Dimer Heparin Anti-Xa Level POC ABG pH ABG pH POC ABG pCO2 POC ABG pO2 ABG pO2 ABG HCO3 ABG O2 Saturation ABG Base Excess ABG Hemoglobin Oxyhemoglobin Sodium 135 L Potassium Chloride 93.5 L Carbon Dioxide BUN 84 H Creatinine 7.1 H Glucose POC Glucose Lactic Acid Calcium 5.0 L* Ionized Calcium Phosphorus Magnesium Iron TIBC Ferritin Total Bilirubin Direct Bilirubin AST 78 H ALT Alkaline Phosphatase 135 H Total Creatine Kinase 4677 H CK-MB (CK-2) Troponin T C-Reactive Protein Total Protein 4.8 L Albumin 2.3 L Triglycerides 409 H LDL Cholesterol Direct HDL Cholesterol Free T4 PTH Intact Urine WBC (Auto) Urine Creatinine Salicylates Acetaminophen Crossmatch 03/27/19 03/27/19 03/27/19 12:37 14:15 14:15 WBC RBC Hgb 9.7 L Hct 29.5 L RDW Plt Count 87 L Lymph % (Auto) [place] % (Auto) Lymph # Seg Neutrophils % Seg Neuts % (Manual) Lymphocytes % (Manual) Monocytes % (Manual) Nucleated RBC % Seg Neutrophils # Seg Neutrophils # Man Lymphocytes # (Manual) Monocytes # (Manual) PT 15.9 H INR 1.30 H D-Dimer Heparin Anti-Xa Level POC ABG pH ABG pH POC ABG pCO2 POC ABG pO2 ABG pO2 ABG HCO3 ABG O2 Saturation ABG Base Excess ABG Hemoglobin Oxyhemoglobin Sodium Potassium Chloride Carbon Dioxide BUN Creatinine Glucose POC Glucose 129 H Lactic Acid Calcium Ionized Calcium Phosphorus Magnesium Iron TIBC Ferritin Total Bilirubin Direct Bilirubin AST ALT Alkaline Phosphatase Total Creatine Kinase CK-MB (CK-2) Troponin T C-Reactive Protein Total Protein Albumin Triglycerides LDL Cholesterol Direct HDL Cholesterol Free T4 PTH Intact Urine WBC (Auto) Urine Creatinine Salicylates Acetaminophen Crossmatch 03/27/19 03/27/19 03/27/19 18:00 19:22 19:23 WBC RBC Hgb Hct RDW Plt Count Lymph % (Auto) [place] % (Auto) Lymph # Seg Neutrophils % Seg Neuts % (Manual) Lymphocytes % (Manual) Monocytes % (Manual) Nucleated RBC % Seg Neutrophils # Seg Neutrophils # Man Lymphocytes # (Manual) Monocytes # (Manual) PT INR D-Dimer Heparin Anti-Xa Level < 0.10 L POC ABG pH ABG pH POC ABG pCO2 POC ABG pO2 ABG pO2 ABG HCO3 ABG O2 Saturation ABG Base Excess ABG Hemoglobin Oxyhemoglobin Sodium Potassium Chloride Carbon Dioxide BUN Creatinine Glucose POC Glucose 121 H Lactic Acid Calcium Ionized Calcium Phosphorus Magnesium Iron TIBC Ferritin Total Bilirubin Direct Bilirubin AST ALT Alkaline Phosphatase Total Creatine Kinase 4517 H CK-MB (CK-2) Troponin T C-Reactive Protein Total Protein Albumin Triglycerides LDL Cholesterol Direct HDL Cholesterol Free T4 PTH Intact Urine WBC (Auto) Urine Creatinine Salicylates Acetaminophen Crossmatch 03/27/19 03/27/19 03/28/19 22:10 23:52 03:49 WBC RBC Hgb Hct RDW Plt Count Lymph % (Auto) [place] % (Auto) Lymph # Seg Neutrophils % Seg Neuts % (Manual) Lymphocytes % (Manual) Monocytes % (Manual) Nucleated RBC % Seg Neutrophils # Seg Neutrophils # Man Lymphocytes # (Manual) Monocytes # (Manual) PT INR D-Dimer Heparin Anti-Xa Level POC ABG pH 7.338 L ABG pH POC ABG pCO2 33.1 L POC ABG pO2 ABG pO2 ABG HCO3 ABG O2 Saturation ABG Base Excess ABG Hemoglobin Oxyhemoglobin Sodium Potassium Chloride Carbon Dioxide BUN Creatinine Glucose POC Glucose 113 H 117 H Lactic Acid Calcium Ionized Calcium Phosphorus Magnesium Iron TIBC Ferritin Total Bilirubin Direct Bilirubin AST ALT Alkaline Phosphatase Total Creatine Kinase CK-MB (CK-2) Troponin T C-Reactive Protein Total Protein Albumin Triglycerides LDL Cholesterol Direct HDL Cholesterol Free T4 PTH Intact Urine WBC (Auto) Urine Creatinine Salicylates Acetaminophen Crossmatch 03/28/19 03/28/19 03/28/19 05:13 05:13 06:18 WBC RBC Hgb Hct RDW Plt Count Lymph % (Auto) [place] % (Auto) Lymph # Seg Neutrophils % Seg Neuts % (Manual) Lymphocytes % (Manual) Monocytes % (Manual) Nucleated RBC % Seg Neutrophils # Seg Neutrophils # Man Lymphocytes # (Manual) Monocytes # (Manual) PT INR D-Dimer Heparin Anti-Xa Level 0.23 L POC ABG pH ABG pH POC ABG pCO2 POC ABG pO2 ABG pO2 ABG HCO3 ABG O2 Saturation ABG Base Excess ABG Hemoglobin Oxyhemoglobin Sodium 135 L Potassium 5.5 H D Chloride 95.1 L Carbon Dioxide 16 L D BUN 129 H Creatinine 9.3 H Glucose 158 H POC Glucose 202 H Lactic Acid Calcium 4.0 L* D Ionized Calcium Phosphorus 12.40 H Magnesium Iron TIBC Ferritin Total Bilirubin Direct Bilirubin AST ALT Alkaline Phosphatase Total Creatine Kinase 4266 H CK-MB (CK-2) Troponin T C-Reactive Protein Total Protein Albumin Triglycerides LDL Cholesterol Direct HDL Cholesterol Free T4 PTH Intact Urine WBC (Auto) Urine Creatinine Salicylates Acetaminophen Crossmatch 03/28/19 03/28/19 03/28/19 08:25 10:00 12:00 WBC RBC Hgb 4.9 L* D Hct 15.4 L* D RDW Plt Count Lymph % (Auto) [place] % (Auto) Lymph # Seg Neutrophils % Seg Neuts % (Manual) Lymphocytes % (Manual) Monocytes % (Manual) Nucleated RBC % Seg Neutrophils # Seg Neutrophils # Man Lymphocytes # (Manual) Monocytes # (Manual) PT 17.9 H INR 1.52 H D-Dimer 4845.98 H Heparin Anti-Xa Level POC ABG pH ABG pH POC ABG pCO2 POC ABG pO2 ABG pO2 ABG HCO3 ABG O2 Saturation ABG Base Excess ABG Hemoglobin Oxyhemoglobin Sodium Potassium Chloride Carbon Dioxide BUN Creatinine Glucose POC Glucose Lactic Acid Calcium Ionized Calcium Phosphorus Magnesium Iron TIBC Ferritin Total Bilirubin Direct Bilirubin AST ALT Alkaline Phosphatase Total Creatine Kinase CK-MB (CK-2) Troponin T C-Reactive Protein Total Protein Albumin Triglycerides LDL Cholesterol Direct HDL Cholesterol Free T4 PTH Intact Urine WBC (Auto) Urine Creatinine Salicylates Acetaminophen Crossmatch See Detail 03/28/19 03/28/19 03/28/19 12:28 14:10 17:43 WBC RBC Hgb 5.9 L* Hct 18.3 L* RDW Plt Count Lymph % (Auto) [place] % (Auto) Lymph # Seg Neutrophils % Seg Neuts % (Manual) Lymphocytes % (Manual) Monocytes % (Manual) Nucleated RBC % Seg Neutrophils # Seg Neutrophils # Man Lymphocytes # (Manual) Monocytes # (Manual) PT INR D-Dimer Heparin Anti-Xa Level POC ABG pH ABG pH POC ABG pCO2 POC ABG pO2 ABG pO2 ABG HCO3 ABG O2 Saturation ABG Base Excess ABG Hemoglobin Oxyhemoglobin Sodium Potassium Chloride Carbon Dioxide BUN Creatinine Glucose POC Glucose 153 H 159 H Lactic Acid Calcium Ionized Calcium Phosphorus Magnesium Iron TIBC Ferritin Total Bilirubin Direct Bilirubin AST ALT Alkaline Phosphatase Total Creatine Kinase CK-MB (CK-2) Troponin T C-Reactive Protein Total Protein Albumin Triglycerides LDL Cholesterol Direct HDL Cholesterol Free T4 PTH Intact Urine WBC (Auto) Urine Creatinine Salicylates Acetaminophen Crossmatch 03/28/19 03/28/19 03/28/19 18:10 Unknown 23:59 WBC 24.8 H RBC 3.42 L Hgb 10.2 L D Hct 31.1 L D RDW 15.4 H Plt Count 54 L Lymph % (Auto) [place] % (Auto) Lymph # Seg Neutrophils % Seg Neuts % (Manual) 91.0 H Lymphocytes % (Manual) 8.0 L Monocytes % (Manual) Nucleated RBC % Seg Neutrophils # Seg Neutrophils # Man 22.6 H Lymphocytes # (Manual) Monocytes # (Manual) PT INR D-Dimer Heparin Anti-Xa Level POC ABG pH ABG pH POC ABG pCO2 POC ABG pO2 ABG pO2 ABG HCO3 ABG O2 Saturation ABG Base Excess ABG Hemoglobin Oxyhemoglobin Sodium Potassium 5.7 H Chloride Carbon Dioxide BUN Creatinine Glucose POC Glucose 107 H Lactic Acid Calcium Ionized Calcium Phosphorus Magnesium Iron TIBC Ferritin Total Bilirubin Direct Bilirubin AST ALT Alkaline Phosphatase Total Creatine Kinase CK-MB (CK-2) Troponin T C-Reactive Protein Total Protein Albumin Triglycerides LDL Cholesterol Direct HDL Cholesterol Free T4 PTH Intact Urine WBC (Auto) Urine Creatinine Salicylates Acetaminophen Crossmatch 03/29/19 03/29/19 03/29/19 04:29 05:46 06:22 WBC RBC Hgb 8.6 L Hct 25.7 L RDW Plt Count 93 L Lymph % (Auto) [place] % (Auto) Lymph # Seg Neutrophils % Seg Neuts % (Manual) Lymphocytes % (Manual) Monocytes % (Manual) Nucleated RBC % Seg Neutrophils # Seg Neutrophils # Man Lymphocytes # (Manual) Monocytes # (Manual) PT INR D-Dimer Heparin Anti-Xa Level POC ABG pH ABG pH POC ABG pCO2 32.2 L POC ABG pO2 ABG pO2 ABG HCO3 ABG O2 Saturation ABG Base Excess ABG Hemoglobin Oxyhemoglobin Sodium Potassium Chloride Carbon Dioxide BUN Creatinine Glucose POC Glucose 113 H Lactic Acid Calcium Ionized Calcium Phosphorus Magnesium Iron TIBC Ferritin Total Bilirubin Direct Bilirubin AST ALT Alkaline Phosphatase Total Creatine Kinase CK-MB (CK-2) Troponin T C-Reactive Protein Total Protein Albumin Triglycerides LDL Cholesterol Direct HDL Cholesterol Free T4 PTH Intact Urine WBC (Auto) Urine Creatinine Salicylates Acetaminophen Crossmatch 10/03/19 10/03/19 10/03/19 06:22 06:22 06:22 WBC 23.2 H RBC 2.91 L Hgb 8.6 L Hct 25.8 L RDW Plt Count 91 L Lymph % (Auto) [place] % (Auto) Lymph # Seg Neutrophils % Seg Neuts % (Manual) Lymphocytes % (Manual) Monocytes % (Manual) Nucleated RBC % Seg Neutrophils # Seg Neutrophils # Man Lymphocytes # (Manual) Monocytes # (Manual) PT INR D-Dimer Heparin Anti-Xa Level POC ABG pH ABG pH POC ABG pCO2 POC ABG pO2 ABG pO2 ABG HCO3 ABG O2 Saturation ABG Base Excess ABG Hemoglobin Oxyhemoglobin Sodium 133 L Potassium Chloride 93.8 L Carbon Dioxide 18 L BUN 109 H Creatinine 7.4 H Glucose 124 H POC Glucose Lactic Acid Calcium 4.6 L* Ionized Calcium Phosphorus Magnesium Iron TIBC Ferritin Total Bilirubin Direct Bilirubin AST ALT Alkaline Phosphatase Total Creatine Kinase 3401 H CK-MB (CK-2) Troponin T C-Reactive Protein Total Protein Albumin Triglycerides 309 H LDL Cholesterol Direct HDL Cholesterol Free T4 PTH Intact Urine WBC (Auto) Urine Creatinine Salicylates Acetaminophen Crossmatch 03/29/19 03/29/19 03/29/19 11:48 11:48 18:24 WBC RBC Hgb 7.8 L Hct 23.2 L RDW Plt Count Lymph % (Auto) [place] % (Auto) Lymph # Seg Neutrophils % Seg Neuts % (Manual) Lymphocytes % (Manual) Monocytes % (Manual) Nucleated RBC % Seg Neutrophils # Seg Neutrophils # Man Lymphocytes # (Manual) Monocytes # (Manual) PT 15.3 H INR 1.24 H D-Dimer Heparin Anti-Xa Level POC ABG pH ABG pH POC ABG pCO2 POC ABG pO2 ABG pO2 ABG HCO3 ABG O2 Saturation ABG Base Excess ABG Hemoglobin Oxyhemoglobin Sodium Potassium Chloride Carbon Dioxide BUN Creatinine Glucose POC Glucose 122 H Lactic Acid Calcium Ionized Calcium Phosphorus Magnesium Iron TIBC Ferritin Total Bilirubin Direct Bilirubin AST ALT Alkaline Phosphatase Total Creatine Kinase CK-MB (CK-2) Troponin T C-Reactive Protein Total Protein Albumin Triglycerides LDL Cholesterol Direct HDL Cholesterol Free T4 PTH Intact Urine WBC (Auto) Urine Creatinine Salicylates Acetaminophen Crossmatch 03/30/19 03/30/19 03/30/19 00:40 04:31 05:04 WBC RBC Hgb 7.6 L Hct 23.0 L RDW Plt Count Lymph % (Auto) [place] % (Auto) Lymph # Seg Neutrophils % Seg Neuts % (Manual) Lymphocytes % (Manual) Monocytes % (Manual) Nucleated RBC % Seg Neutrophils # Seg Neutrophils # Man Lymphocytes # (Manual) Monocytes # (Manual) PT INR D-Dimer Heparin Anti-Xa Level POC ABG pH 7.346 L ABG pH POC ABG pCO2 POC ABG pO2 62 L ABG pO2 ABG HCO3 ABG O2 Saturation ABG Base Excess ABG Hemoglobin Oxyhemoglobin Sodium Potassium Chloride Carbon Dioxide BUN 79 H Creatinine 6.4 H Glucose POC Glucose Lactic Acid Calcium 6.1 L D Ionized Calcium Phosphorus Magnesium Iron TIBC Ferritin Total Bilirubin Direct Bilirubin AST ALT Alkaline Phosphatase Total Creatine Kinase CK-MB (CK-2) Troponin T C-Reactive Protein Total Protein Albumin Triglycerides LDL Cholesterol Direct HDL Cholesterol Free T4 PTH Intact Urine WBC (Auto) Urine Creatinine Salicylates Acetaminophen Crossmatch 03/30/19 03/30/19 03/30/19 08:45 12:09 22:43 WBC 14.3 H RBC 2.33 L Hgb 7.0 L 7.4 L Hct 21.0 L 22.3 L RDW 15.6 H Plt Count 135 L Lymph % (Auto) [place] % (Auto) Lymph # Seg Neutrophils % Seg Neuts % (Manual) Lymphocytes % (Manual) Monocytes % (Manual) Nucleated RBC % Seg Neutrophils # Seg Neutrophils # Man Lymphocytes # (Manual) Monocytes # (Manual) PT INR D-Dimer Heparin Anti-Xa Level POC ABG pH ABG pH POC ABG pCO2 POC ABG pO2 ABG pO2 ABG HCO3 ABG O2 Saturation ABG Base Excess ABG Hemoglobin Oxyhemoglobin Sodium Potassium Chloride Carbon Dioxide BUN Creatinine Glucose POC Glucose Lactic Acid Calcium Ionized Calcium 3.7 L Phosphorus Magnesium Iron TIBC Ferritin Total Bilirubin Direct Bilirubin AST ALT Alkaline Phosphatase Total Creatine Kinase CK-MB (CK-2) Troponin T C-Reactive Protein Total Protein Albumin Triglycerides LDL Cholesterol Direct HDL Cholesterol Free T4 PTH Intact Urine WBC (Auto) Urine Creatinine Salicylates Acetaminophen Crossmatch 03/30/19 03/30/19 03/31/19 23:38 Unknown 04:44 WBC 11.5 H RBC 2.40 L Hgb 7.3 L Hct 21.9 L RDW 15.4 H Plt Count Lymph % (Auto) 10.6 L [place] % (Auto) Lymph # Seg Neutrophils % 81.7 H Seg Neuts % (Manual) Lymphocytes % (Manual) Monocytes % (Manual) Nucleated RBC % Seg Neutrophils # 9.4 H Seg Neutrophils # Man Lymphocytes # (Manual) Monocytes # (Manual) PT INR D-Dimer Heparin Anti-Xa Level POC ABG pH ABG pH POC ABG pCO2 POC ABG pO2 ABG pO2 ABG HCO3 ABG O2 Saturation ABG Base Excess ABG Hemoglobin Oxyhemoglobin Sodium Potassium Chloride Carbon Dioxide BUN Creatinine Glucose POC Glucose 155 H Lactic Acid Calcium Ionized Calcium Phosphorus Magnesium Iron TIBC Ferritin Total Bilirubin Direct Bilirubin 0.4 H AST 63 H ALT Alkaline Phosphatase Total Creatine Kinase CK-MB (CK-2) Troponin T C-Reactive Protein Total Protein 4.9 L Albumin 2.2 L Triglycerides LDL Cholesterol Direct HDL Cholesterol Free T4 PTH Intact Urine WBC (Auto) Urine Creatinine Salicylates Acetaminophen Crossmatch 03/31/19 03/31/19 03/31/19 04:44 05:44 08:20 WBC RBC Hgb Hct RDW Plt Count Lymph % (Auto) [place] % (Auto) Lymph # Seg Neutrophils % Seg Neuts % (Manual) Lymphocytes % (Manual) Monocytes % (Manual) Nucleated RBC % Seg Neutrophils # Seg Neutrophils # Man Lymphocytes # (Manual) Monocytes # (Manual) PT INR D-Dimer Heparin Anti-Xa Level POC ABG pH ABG pH POC ABG pCO2 53.5 H POC ABG pO2 62 L ABG pO2 ABG HCO3 ABG O2 Saturation ABG Base Excess ABG Hemoglobin Oxyhemoglobin Sodium 135 L Potassium Chloride 96.7 L Carbon Dioxide 19 L BUN 94 H Creatinine 7.8 H Glucose POC Glucose Lactic Acid Calcium 5.3 L* Ionized Calcium Phosphorus 8.20 H Magnesium Iron TIBC Ferritin Total Bilirubin Direct Bilirubin 0.4 H AST 60 H ALT Alkaline Phosphatase Total Creatine Kinase CK-MB (CK-2) Troponin T C-Reactive Protein Total Protein 4.8 L Albumin 2.1 L Triglycerides LDL Cholesterol Direct HDL Cholesterol Free T4 PTH Intact Urine WBC (Auto) Urine Creatinine Salicylates Acetaminophen Crossmatch 03/31/19 04/01/19 04/01/19 22:14 04:27 04:27 WBC RBC 2.60 L Hgb 8.0 L Hct 24.1 L RDW 15.7 H Plt Count Lymph % (Auto) 7.9 L [place] % (Auto) Lymph # 0.7 L Seg Neutrophils % 83.6 H Seg Neuts % (Manual) Lymphocytes % (Manual) Monocytes % (Manual) Nucleated RBC % Seg Neutrophils # Seg Neutrophils # Man Lymphocytes # (Manual) Monocytes # (Manual) PT INR D-Dimer Heparin Anti-Xa Level POC ABG pH 7.286 L ABG pH POC ABG pCO2 54.7 H POC ABG pO2 179 H ABG pO2 ABG HCO3 ABG O2 Saturation ABG Base Excess ABG Hemoglobin Oxyhemoglobin Sodium Potassium Chloride Carbon Dioxide BUN 68 H Creatinine 6.6 H Glucose POC Glucose Lactic Acid Calcium 6.5 L D Ionized Calcium Phosphorus 7.30 H Magnesium Iron TIBC Ferritin Total Bilirubin Direct Bilirubin AST ALT Alkaline Phosphatase Total Creatine Kinase 1652 H CK-MB (CK-2) Troponin T C-Reactive Protein Total Protein Albumin Triglycerides LDL Cholesterol Direct HDL Cholesterol Free T4 PTH Intact Urine WBC (Auto) Urine Creatinine Salicylates Acetaminophen Crossmatch 04/01/19 04/01/19 04/01/19 05:14 05:37 18:37 WBC RBC Hgb Hct RDW Plt Count Lymph % (Auto) [place] % (Auto) Lymph # Seg Neutrophils % Seg Neuts % (Manual) Lymphocytes % (Manual) Monocytes % (Manual) Nucleated RBC % Seg Neutrophils # Seg Neutrophils # Man Lymphocytes # (Manual) Monocytes # (Manual) PT INR D-Dimer Heparin Anti-Xa Level POC ABG pH 7.283 L ABG pH POC ABG pCO2 53.4 H POC ABG pO2 241 H ABG pO2 ABG HCO3 ABG O2 Saturation ABG Base Excess ABG Hemoglobin Oxyhemoglobin Sodium Potassium Chloride Carbon Dioxide BUN Creatinine Glucose POC Glucose 111 H 119 H Lactic Acid Calcium Ionized Calcium Phosphorus Magnesium Iron TIBC Ferritin Total Bilirubin Direct Bilirubin AST ALT Alkaline Phosphatase Total Creatine Kinase CK-MB (CK-2) Troponin T C-Reactive Protein Total Protein Albumin Triglycerides LDL Cholesterol Direct HDL Cholesterol Free T4 PTH Intact Urine WBC (Auto) Urine Creatinine Salicylates Acetaminophen Crossmatch 04/01/19 04/02/19 04/02/19 21:28 04:40 05:03 WBC RBC 2.36 L Hgb 7.2 L Hct 21.9 L RDW 16.0 H Plt Count Lymph % (Auto) 10.8 L [place] % (Auto) Lymph # 0.8 L Seg Neutrophils % 80.3 H Seg Neuts % (Manual) Lymphocytes % (Manual) Monocytes % (Manual) Nucleated RBC % Seg Neutrophils # Seg Neutrophils # Man Lymphocytes # (Manual) Monocytes # (Manual) PT INR D-Dimer Heparin Anti-Xa Level POC ABG pH 7.299 L 7.300 L ABG pH POC ABG pCO2 48.2 H 45.2 H POC ABG pO2 133 H 107 H ABG pO2 ABG HCO3 ABG O2 Saturation ABG Base Excess ABG Hemoglobin Oxyhemoglobin Sodium Potassium Chloride Carbon Dioxide BUN Creatinine Glucose POC Glucose Lactic Acid Calcium Ionized Calcium Phosphorus Magnesium Iron TIBC Ferritin Total Bilirubin Direct Bilirubin AST ALT Alkaline Phosphatase Total Creatine Kinase CK-MB (CK-2) Troponin T C-Reactive Protein Total Protein Albumin Triglycerides LDL Cholesterol Direct HDL Cholesterol Free T4 PTH Intact Urine WBC (Auto) Urine Creatinine Salicylates Acetaminophen Crossmatch 04/02/19 04/02/19 04/02/19 05:03 05:03 12:15 WBC RBC Hgb 7.4 L Hct 22.6 L RDW Plt Count Lymph % (Auto) [place] % (Auto) Lymph # Seg Neutrophils % Seg Neuts % (Manual) Lymphocytes % (Manual) Monocytes % (Manual) Nucleated RBC % Seg Neutrophils # Seg Neutrophils # Man Lymphocytes # (Manual) Monocytes # (Manual) PT INR D-Dimer Heparin Anti-Xa Level POC ABG pH ABG pH POC ABG pCO2 POC ABG pO2 ABG pO2 ABG HCO3 ABG O2 Saturation ABG Base Excess ABG Hemoglobin Oxyhemoglobin Sodium 136 L Potassium Chloride 97.8 L Carbon Dioxide 18 L BUN 82 H Creatinine 8.2 H Glucose POC Glucose Lactic Acid Calcium 6.7 L Ionized Calcium Phosphorus 7.50 H Magnesium Iron 26 L TIBC 138 L Ferritin 607.0 H Total Bilirubin Direct Bilirubin AST ALT Alkaline Phosphatase Total Creatine Kinase CK-MB (CK-2) Troponin T C-Reactive Protein Total Protein Albumin Triglycerides LDL Cholesterol Direct HDL Cholesterol Free T4 PTH Intact Urine WBC (Auto) Urine Creatinine Salicylates Acetaminophen Crossmatch 04/02/19 04/02/19 04/03/19 16:34 17:14 04:18 WBC RBC Hgb Hct RDW Plt Count Lymph % (Auto) [place] % (Auto) Lymph # Seg Neutrophils % Seg Neuts % (Manual) Lymphocytes % (Manual) Monocytes % (Manual) Nucleated RBC % Seg Neutrophils # Seg Neutrophils # Man Lymphocytes # (Manual) Monocytes # (Manual) PT INR D-Dimer Heparin Anti-Xa Level POC ABG pH ABG pH POC ABG pCO2 POC ABG pO2 146 H ABG pO2 ABG HCO3 ABG O2 Saturation ABG Base Excess ABG Hemoglobin Oxyhemoglobin Sodium Potassium Chloride Carbon Dioxide BUN Creatinine Glucose POC Glucose 108 H Lactic Acid Calcium Ionized Calcium Phosphorus Magnesium Iron TIBC Ferritin Total Bilirubin Direct Bilirubin AST ALT Alkaline Phosphatase Total Creatine Kinase CK-MB (CK-2) Troponin T C-Reactive Protein Total Protein Albumin Triglycerides LDL Cholesterol Direct HDL Cholesterol Free T4 PTH Intact Urine WBC (Auto) Urine Creatinine Salicylates Acetaminophen Crossmatch See Detail 04/03/19 04/03/19 04/03/19 04:25 08:30 18:24 WBC RBC 2.40 L Hgb 7.3 L Hct 21.9 L RDW Plt Count Lymph % (Auto) [place] % (Auto) 7.7 H Lymph # 0.9 L Seg Neutrophils % 74.6 H Seg Neuts % (Manual) Lymphocytes % (Manual) Monocytes % (Manual) Nucleated RBC % Seg Neutrophils # Seg Neutrophils # Man Lymphocytes # (Manual) Monocytes # (Manual) PT INR D-Dimer Heparin Anti-Xa Level POC ABG pH ABG pH POC ABG pCO2 POC ABG pO2 ABG pO2 ABG HCO3 ABG O2 Saturation ABG Base Excess ABG Hemoglobin Oxyhemoglobin Sodium 136 L Potassium Chloride 97.0 L Carbon Dioxide BUN 58 H Creatinine 7.3 H Glucose POC Glucose 106 H Lactic Acid Calcium 7.5 L Ionized Calcium Phosphorus 5.80 H D Magnesium Iron TIBC Ferritin Total Bilirubin Direct Bilirubin AST ALT Alkaline Phosphatase Total Creatine Kinase CK-MB (CK-2) Troponin T C-Reactive Protein Total Protein Albumin Triglycerides LDL Cholesterol Direct HDL Cholesterol Free T4 PTH Intact Urine WBC (Auto) Urine Creatinine Salicylates Acetaminophen Crossmatch 04/03/19 04/04/19 04/04/19 23:43 04:47 04:47 WBC RBC 2.72 L Hgb 8.3 L Hct 24.7 L RDW 15.6 H Plt Count Lymph % (Auto) [place] % (Auto) 10.1 H Lymph # 0.8 L Seg Neutrophils % 71.4 H Seg Neuts % (Manual) Lymphocytes % (Manual) Monocytes % (Manual) Nucleated RBC % Seg Neutrophils # Seg Neutrophils # Man Lymphocytes # (Manual) Monocytes # (Manual) PT INR D-Dimer Heparin Anti-Xa Level POC ABG pH ABG pH POC ABG pCO2 POC ABG pO2 ABG pO2 123.8 H ABG HCO3 ABG O2 Saturation ABG Base Excess -3.0 L ABG Hemoglobin 7.9 L Oxyhemoglobin Sodium 134 L Potassium Chloride 97.9 L Carbon Dioxide BUN 64 H Creatinine 8.1 H Glucose POC Glucose Lactic Acid Calcium 7.2 L Ionized Calcium Phosphorus Magnesium Iron TIBC Ferritin Total Bilirubin Direct Bilirubin AST ALT Alkaline Phosphatase Total Creatine Kinase CK-MB (CK-2) Troponin T C-Reactive Protein Total Protein Albumin Triglycerides LDL Cholesterol Direct HDL Cholesterol Free T4 PTH Intact Urine WBC (Auto) Urine Creatinine Salicylates Acetaminophen Crossmatch 04/04/19 04/04/19 04/04/19 06:07 13:40 18:18 WBC RBC Hgb Hct RDW Plt Count Lymph % (Auto) [place] % (Auto) Lymph # Seg Neutrophils % Seg Neuts % (Manual) Lymphocytes % (Manual) Monocytes % (Manual) Nucleated RBC % Seg Neutrophils # Seg Neutrophils # Man Lymphocytes # (Manual) Monocytes # (Manual) PT INR D-Dimer Heparin Anti-Xa Level POC ABG pH ABG pH POC ABG pCO2 POC ABG pO2 ABG pO2 95.9 H ABG HCO3 ABG O2 Saturation ABG Base Excess -3.0 L ABG Hemoglobin 8.5 L Oxyhemoglobin Sodium Potassium Chloride Carbon Dioxide BUN Creatinine Glucose POC Glucose 107 H 107 H Lactic Acid Calcium Ionized Calcium Phosphorus Magnesium Iron TIBC Ferritin Total Bilirubin Direct Bilirubin AST ALT Alkaline Phosphatase Total Creatine Kinase CK-MB (CK-2) Troponin T C-Reactive Protein Total Protein Albumin Triglycerides LDL Cholesterol Direct HDL Cholesterol Free T4 PTH Intact Urine WBC (Auto) Urine Creatinine Salicylates Acetaminophen Crossmatch 04/04/19 04/05/19 04/05/19 21:22 04:09 04:09 WBC RBC 2.76 L Hgb 8.4 L Hct 25.4 L RDW 15.8 H Plt Count 133 L Lymph % (Auto) [place] % (Auto) 9.6 H Lymph # 0.7 L Seg Neutrophils % 72.6 H Seg Neuts % (Manual) Lymphocytes % (Manual) Monocytes % (Manual) Nucleated RBC % Seg Neutrophils # Seg Neutrophils # Man Lymphocytes # (Manual) Monocytes # (Manual) PT INR D-Dimer Heparin Anti-Xa Level POC ABG pH ABG pH POC ABG pCO2 47.2 H POC ABG pO2 137 H ABG pO2 ABG HCO3 ABG O2 Saturation ABG Base Excess ABG Hemoglobin Oxyhemoglobin Sodium 136 L Potassium Chloride Carbon Dioxide BUN 46 H Creatinine 6.7 H Glucose POC Glucose Lactic Acid Calcium 7.7 L Ionized Calcium Phosphorus Magnesium Iron TIBC Ferritin Total Bilirubin Direct Bilirubin AST ALT Alkaline Phosphatase Total Creatine Kinase CK-MB (CK-2) Troponin T C-Reactive Protein Total Protein Albumin Triglycerides LDL Cholesterol Direct HDL Cholesterol Free T4 PTH Intact Urine WBC (Auto) Urine Creatinine Salicylates Acetaminophen Crossmatch 04/05/19 04/05/19 04/05/19 05:28 06:14 16:50 WBC RBC Hgb Hct RDW Plt Count Lymph % (Auto) [place] % (Auto) Lymph # Seg Neutrophils % Seg Neuts % (Manual) Lymphocytes % (Manual) Monocytes % (Manual) Nucleated RBC % Seg Neutrophils # Seg Neutrophils # Man Lymphocytes # (Manual) Monocytes # (Manual) PT INR D-Dimer Heparin Anti-Xa Level POC ABG pH ABG pH POC ABG pCO2 POC ABG pO2 67 L ABG pO2 ABG HCO3 ABG O2 Saturation ABG Base Excess ABG Hemoglobin Oxyhemoglobin Sodium Potassium Chloride Carbon Dioxide BUN Creatinine Glucose POC Glucose 108 H Lactic Acid Calcium Ionized Calcium Phosphorus Magnesium Iron TIBC Ferritin Total Bilirubin Direct Bilirubin AST ALT Alkaline Phosphatase Total Creatine Kinase CK-MB (CK-2) Troponin T C-Reactive Protein Total Protein Albumin Triglycerides LDL Cholesterol Direct HDL Cholesterol Free T4 PTH Intact Urine WBC (Auto) 40.0 H Urine Creatinine Salicylates Acetaminophen Crossmatch 04/05/19 04/06/19 04/06/19 17:22 00:13 04:44 WBC RBC 2.48 L Hgb 7.5 L Hct 22.9 L RDW 16.0 H Plt Count 107 L Lymph % (Auto) [place] % (Auto) 10.7 H Lymph # 1.0 L Seg Neutrophils % Seg Neuts % (Manual) Lymphocytes % (Manual) Monocytes % (Manual) Nucleated RBC % Seg Neutrophils # Seg Neutrophils # Man Lymphocytes # (Manual) Monocytes # (Manual) PT INR D-Dimer Heparin Anti-Xa Level POC ABG pH ABG pH POC ABG pCO2 POC ABG pO2 ABG pO2 ABG HCO3 ABG O2 Saturation ABG Base Excess ABG Hemoglobin Oxyhemoglobin Sodium Potassium Chloride Carbon Dioxide BUN Creatinine Glucose POC Glucose 118 H 138 H Lactic Acid Calcium Ionized Calcium Phosphorus Magnesium Iron TIBC Ferritin Total Bilirubin Direct Bilirubin AST ALT Alkaline Phosphatase Total Creatine Kinase CK-MB (CK-2) Troponin T C-Reactive Protein Total Protein Albumin Triglycerides LDL Cholesterol Direct HDL Cholesterol Free T4 PTH Intact Urine WBC (Auto) Urine Creatinine Salicylates Acetaminophen Crossmatch 04/06/19 04/06/19 04/06/19 04:44 05:20 05:23 WBC RBC Hgb Hct RDW Plt Count Lymph % (Auto) [place] % (Auto) Lymph # Seg Neutrophils % Seg Neuts % (Manual) Lymphocytes % (Manual) Monocytes % (Manual) Nucleated RBC % Seg Neutrophils # Seg Neutrophils # Man Lymphocytes # (Manual) Monocytes # (Manual) PT INR D-Dimer Heparin Anti-Xa Level POC ABG pH ABG pH POC ABG pCO2 POC ABG pO2 ABG pO2 104.0 H ABG HCO3 ABG O2 Saturation ABG Base Excess -2.1 L ABG Hemoglobin 7.3 L Oxyhemoglobin Sodium Potassium Chloride Carbon Dioxide BUN 64 H Creatinine 8.2 H Glucose 103 H POC Glucose 118 H Lactic Acid Calcium 7.3 L Ionized Calcium Phosphorus Magnesium Iron TIBC Ferritin Total Bilirubin Direct Bilirubin AST ALT Alkaline Phosphatase Total Creatine Kinase CK-MB (CK-2) Troponin T C-Reactive Protein Total Protein Albumin Triglycerides LDL Cholesterol Direct HDL Cholesterol Free T4 PTH Intact Urine WBC (Auto) Urine Creatinine Salicylates Acetaminophen Crossmatch 04/06/19 04/07/19 04/07/19 12:02 05:40 05:40 WBC RBC 2.59 L Hgb 7.9 L Hct 23.8 L RDW 15.8 H Plt Count 89 L Lymph % (Auto) [place] % (Auto) 10.3 H Lymph # 1.1 L Seg Neutrophils % Seg Neuts % (Manual) Lymphocytes % (Manual) Monocytes % (Manual) Nucleated RBC % Seg Neutrophils # Seg Neutrophils # Man Lymphocytes # (Manual) Monocytes # (Manual) PT INR D-Dimer Heparin Anti-Xa Level POC ABG pH ABG pH POC ABG pCO2 POC ABG pO2 ABG pO2 ABG HCO3 ABG O2 Saturation ABG Base Excess ABG Hemoglobin Oxyhemoglobin Sodium 136 L Potassium 3.5 L Chloride Carbon Dioxide BUN 46 H Creatinine 6.2 H Glucose POC Glucose 108 H Lactic Acid Calcium 7.9 L Ionized Calcium Phosphorus Magnesium Iron TIBC Ferritin Total Bilirubin Direct Bilirubin AST ALT Alkaline Phosphatase Total Creatine Kinase CK-MB (CK-2) Troponin T C-Reactive Protein Total Protein Albumin Triglycerides LDL Cholesterol Direct HDL Cholesterol Free T4 PTH Intact Urine WBC (Auto) Urine Creatinine Salicylates Acetaminophen Crossmatch 04/07/19 04/09/19 04/09/19 12:57 04:28 04:28 WBC RBC 2.85 L Hgb 8.7 L Hct 26.2 L RDW 15.6 H Plt Count Lymph % (Auto) [place] % (Auto) 10.4 H Lymph # 1.0 L Seg Neutrophils % 73.3 H Seg Neuts % (Manual) Lymphocytes % (Manual) Monocytes % (Manual) Nucleated RBC % Seg Neutrophils # Seg Neutrophils # Man Lymphocytes # (Manual) Monocytes # (Manual) PT INR D-Dimer Heparin Anti-Xa Level POC ABG pH ABG pH POC ABG pCO2 POC ABG pO2 107 H ABG pO2 ABG HCO3 ABG O2 Saturation ABG Base Excess ABG Hemoglobin Oxyhemoglobin Sodium Potassium 3.5 L Chloride 97.8 L Carbon Dioxide BUN 62 H Creatinine 8.1 H Glucose POC Glucose Lactic Acid Calcium 8.2 L Ionized Calcium Phosphorus 5.10 H Magnesium Iron TIBC Ferritin Total Bilirubin Direct Bilirubin AST ALT Alkaline Phosphatase Total Creatine Kinase CK-MB (CK-2) Troponin T C-Reactive Protein Total Protein Albumin Triglycerides LDL Cholesterol Direct HDL Cholesterol Free T4 PTH Intact Urine WBC (Auto) Urine Creatinine Salicylates Acetaminophen Crossmatch Allied health notes reviewed: RT
--- NOTE | 2019-04-09 12:43 | Progress Note ---
Assessment and Plan Optimize BPs and HR - cont PO amio 400mg TID and increase lopressor dosage. Monitor QT interval. No systemic AC regarding AFib in setting of anemia, thrombocytopenia, GI bleed. Continue supportive measures. Can consider ischemic evaluation if/when medically stabilized. Overall guarded prognosis. The patient has been seen in conjunction with Dr. Rojas who agrees with the assessment and plan of care. - Patient Problems (1) Cardiopulmonary arrest Current Visit: Yes Status: Acute (2) Acute respiratory failure Current Visit: Yes Status: Acute (3) Paroxysmal atrial fibrillation with RVR Current Visit: Yes Status: Acute (4) SVT (supraventricular tachycardia) Current Visit: Yes Status: Acute (5) Torsades de pointes Current Visit: Yes Status: Acute (6) Ventricular tachycardia Current Visit: Yes Status: Acute (7) Encephalopathy Current Visit: Yes Status: Acute (8) Septic shock Current Visit: Yes Status: Acute (9) Aspiration pneumonia Current Visit: Yes Status: Acute (10) Meningitis Current Visit: Yes Status: Suspected (11) Cellulitis Current Visit: Yes Status: Acute (12) Acute renal failure Current Visit: Yes Status: Acute (13) GI bleed Current Visit: Yes Status: Acute (14) Anemia Current Visit: Yes Status: Acute (15) Thrombocytopenia Current Visit: Yes Status: Acute (16) DVT (deep venous thrombosis) Current Visit: Yes Status: Acute Subjective Date of service: 04/09/19 Principal diagnosis: anemia - DVT IJ Interval history: pt extubated, on room air, alert, following some commands. in AFib with RVR HR 100s, currently receiving dialysis. BPs elevated. no family at bedside. Objective Last Vital Signs Temp 99.3 F 04/09/19 07:40 Pulse 78 04/09/19 12:00 Resp 37 H 04/09/19 07:40 BP 184/95 04/09/19 12:00 Pulse Ox 98 04/09/19 07:40 - Physical Examination General: No Apparent Distress HEENT: Positive: EOMI, Normocephaly, Mucus Membranes Moist Neck: Positive: neck supple, trachea midline Cardiac: Positive: irregularly irregular, S1/S2, Tachycardia Lungs: Positive: Decreased Breath Sounds Neuro: Positive: Grossly Intact, Other (Awake, responsive) Abdomen: Positive: Soft, Active Bowel Sounds. Negative: Tender /Rectal: Other (deferred) Skin: Positive: Clear. Negative: Rash Musculoskeletal: Normal Range of Motion Extremities: Present: normal - Labs and Meds CBC 04/09/19 Range/Units 04:28 WBC 7.5 (4.5-11.0) K/mm3 RBC 2.85 L (3.65-5.03) M/mm3 Hgb 8.7 L (11.8-15.2) gm/dl Hct 26.2 L (35.5-45.6) % Plt Count 152 (140-440) K/mm3 Lymph # 1.0 L (1.2-5.4) K/mm3 [place] # 0.8 (0.0-0.8) K/mm3 Eos # 0.2 (0.0-0.4) K/mm3 Baso # 0.1 (0.0-0.1) K/mm3 Comprehensive Metabolic Panel 04/09/19 Range/Units 04:28 Sodium 138 (137-145) mmol/L Potassium 3.5 L (3.6-5.0) mmol/L Chloride 97.8 L (98-107) mmol/L Carbon Dioxide 22 (22-30) mmol/L BUN 62 H (9-20) mg/dL Creatinine 8.1 H (0.8-1.5) mg/dL Glucose 80 (75-100) mg/dL Calcium 8.2 L (8.4-10.2) mg/dL - Imaging and Cardiology Echo: report reviewed ( EF 40-45%, impaired relaxation. ) - EKG Sinus rhythms and dysrhythmias: sinus rhythm - Allied health notes Allied health notes reviewed: RT
--- NOTE | 2019-04-09 13:32 | Progress Note ---
Assessment and Plan Assessment and plan: Patient is a 43-year-old man with history of GERD, obesity and mental illness who presented to [facility] ED on 03/16/2019 with altered mental status. He is visiting from [place] and was brought in by his friend. When he came to the ER, he was unable to speak or follow commands, in the ER he was found to have SVT with heart rate in the 250s. The patient was shocks and medicated. He became more confused and had trouble protecting his airway; therefore, he was then intubated. During this hospital coarse, he was found to have sepsis with septic shock, rhabdomyolysis, RUBEN, and multisystem organ failure. According to the patient's clinical findings, the patient likely has toxic metabolic encephalopathy. Acute hypoxic respiratory failure on mechanical ventilator greater than 96 hours , suspect ARDS, extubated around 1:30pm on 04/07/19: continue to monitor P.Afib/flutter with RVR: treated with IV Amiodorone, Cardiology is following Torsade sparkle points/ventricular tachycardia resolved Acute combine heart failure, EF 40%: Cardiology input noted, continue amiodarone drip, no beta-adela or CHRISTIN given hypotension, will need ischemic cardiac stratification if he improves. Acute GI bleed, upper GI bleed due to PUD, EGD on 03/30 shows multiple ulcers, and large ulcer was rx with epi, unfortunately patient had melena again on 04/02, resolved, Protonix iv bid now Acute blood loss anemia, Transfused multiple units of PRBC, now improved, transfuse another unit as patient is actively bleeding Right IJ nonocclusive thrombosis, Discussed with vascular surgery, patient unable to tolerate anticoagulation due to thrombocytopenia and GI bleeding. Will monitor Septic shock with multiorgan failure, off pressors >48 hours: down to Levophed, continue to wean vasopressors Aspiration pneumonia: completed ABX Acute kidney injury, rhabdomyolysis, hyperkalemia due to ATN: Continue dialysis per nephrology Acute Metabolic Encephalopathy Severe metabolic acidosis, improved: monitoring BMP closely Rhabdomyolysis, CK trending down Thrombocytopenia, Likely due to sepsis, continue to monitor ?Right axillary edema: no abscess, US no collection seen DVT prophylaxis, no anticoagulation given multiple episodes of GI bleed and thrombocytopenia. SCDs Polyneuropahty of Critical illness suspect myopathy: treat with Physical Therapy, minimize sedation, DNR History Interval history: Patient was seen and examined. Follow-up on current diagnosis of resp failure. No overnight events reported to me. Imaging, nursing note, chart, labs and old chart reviewed. Patient intubated and sedated. Hospitalist Physical - Physical exam Narrative exam: Gen: critically ill, bmi 47, intubated and sedated HEENT: NCAT, EOMI, PERRL, OP eTT and NGt in place Neck: supple, no adenopathy, no thyromegaly, CVS/Heart: irregular irregular, normal S1S2, pulses present bilaterally Chest/Lungs: Symmetrical chest expansion, good air entry bilaterally GI/Abdomen: soft, NTND, good bowel sounds, no guarding or rebound /Bladder: no suprapubic tenderness, no CVA or paraspinal tenderness Extermity/Skin: dependent edema MSK: sedated Neuro: sedated Psych: sedated - Constitutional Vitals: Temp Pulse Resp BP Pulse Ox 99.3 F 78 37 H 184/95 98 04/09/19 07:40 04/09/19 12:00 04/09/19 07:40 04/09/19 12:00 04/09/19 07:40 General appearance: Present: other (intubated) Results - Labs CBC & Chem 7: 04/09/19 04:28 04/09/19 04:28 Labs: Laboratory Last Values WBC 7.5 K/mm3 (4.5-11.0) 04/09/19 04:28 RBC 2.85 M/mm3 (3.65-5.03) L 04/09/19 04:28 Hgb 8.7 gm/dl (11.8-15.2) L 04/09/19 04:28 Hct 26.2 % (35.5-45.6) L 04/09/19 04:28 MCV 92 fl (84-94) 04/09/19 04:28 MCH 31 pg (28-32) 04/09/19 04:28 MCHC 33 % (32-34) 04/09/19 04:28 RDW 15.6 % (13.2-15.2) H 04/09/19 04:28 Plt Count 152 K/mm3 (140-440) 04/09/19 04:28 Lymph % (Auto) 13.4 % (13.4-35.0) 04/09/19 04:28 Finney % (Auto) 10.4 % (0.0-7.3) H 04/09/19 04:28 Eos % (Auto) 2.1 % (0.0-4.3) 04/09/19 04:28 Baso % (Auto) 0.8 % (0.0-1.8) 04/09/19 04:28 Lymph # 1.0 K/mm3 (1.2-5.4) L 04/09/19 04:28 Finney # 0.8 K/mm3 (0.0-0.8) 04/09/19 04:28 Eos # 0.2 K/mm3 (0.0-0.4) 04/09/19 04: Baso # 0.1 K/mm3 (0.0-0.1) 04/09/19 04:28 Add Manual Diff Complete 03/28/19 18:10 Total Counted 100 03/28/19 18:10 Seg Neutrophils % 73.3 % (40.0-70.0) H 04/09/19 04:28 Seg Neuts % (Manual) 91.0 % (40.0-70.0) H 03/28/19 18:10 Band Neutrophils % 0 % 03/28/19 18:10 Lymphocytes % (Manual) 8.0 % (13.4-35.0) L 03/28/19 18:10 Reactive Lymphs % (Man) 0 % 03/28/19 18:10 Monocytes % (Manual) 1.0 % (0.0-7.3) 03/28/19 18:10 Eosinophils % (Manual) 0 % (0.0-4.3) 03/28/19 18:10 Basophils % (Manual) 0 % (0.0-1.8) 03/28/19 18:10 Metamyelocytes % 0 % 03/28/19 18:10 Myelocytes % 0 % 03/28/19 18:10 Promyelocytes % 0 % 03/28/19 18:10 Blast Cells % 0 % 03/28/19 18:10 Nucleated RBC % Not Reportable 03/28/19 18:10 Seg Neutrophils # 5.5 K/mm3 (1.8-7.7) 04/09/19 04:28 Seg Neutrophils # Man 22.6 K/mm3 (1.8-7.7) H 03/28/19 18:10 Band Neutrophils # 0.0 K/mm3 03/28/19 18:10 Lymphocytes # (Manual) 2.0 K/mm3 (1.2-5.4) 03/28/19 18:10 Abs React Lymphs (Man) 0.0 K/mm3 03/28/19 18:10 Monocytes # (Manual) 0.2 K/mm3 (0.0-0.8) 03/28/19 18:10 Eosinophils # (Manual) 0.0 K/mm3 (0.0-0.4) 03/28/19 18:10 Basophils # (Manual) 0.0 K/mm3 (0.0-0.1) 03/28/19 18:10 Metamyelocytes # 0.0 K/mm3 03/28/19 18:10 Myelocytes # 0.0 K/mm3 03/28/19 18:10 Promyelocytes # 0.0 K/mm3 03/28/19 18:10 Blast Cells # 0.0 K/mm3 03/28/19 18:10 WBC Morphology Not Reportable 03/28/19 18:10 Hypersegmented Neuts Not Reportable 03/28/19 18:10 Hyposegmented Neuts Not Reportable 03/28/19 18:10 Hypogranular Neuts Not Reportable 03/28/19 18:10 Smudge Cells Not Reportable 03/28/19 18:10 Toxic Granulation Not Reportable 03/28/19 18:10 Toxic Vacuolation Not Reportable 03/28/19 18:10 Dohle Bodies Not Reportable 03/28/19 18:10 Pelger-Huet Anomaly Not Reportable 03/28/19 18:10 Joyce Rods Not Reportable 03/28/19 18:10 Platelet Estimate Appears decreased 03/28/19 18:10 Clumped Platelets Not Reportable 03/28/19 18:10 Plt Clumps, EDTA Not Reportable 03/28/19 18:10 Large Platelets Not Reportable 03/28/19 18:10 Giant Platelets Not Reportable 03/28/19 18:10 Platelet Satelliting Not Reportable 03/28/19 18:10 Plt Morphology Comment Not Reportable 03/28/19 18:10 RBC Morphology Not Reportable 03/28/19 18:10 Dimorphic RBCs Not Reportable 03/28/19 18:10 Polychromasia Not Reportable 03/28/19 18:10 Hypochromasia Not Reportable 03/28/19 18:10 Poikilocytosis Not Reportable 03/28/19 18:10 Anisocytosis Few 03/28/19 18:10 Microcytosis Not Reportable 03/28/19 18:10 Macrocytosis Not Reportable 03/28/19 18:10 Spherocytes Not Reportable 03/28/19 18:10 Pappenheimer Bodies Not Reportable 03/28/19 18:10 Sickle Cells Not Reportable 03/28/19 18:10 Target Cells Not Reportable 03/28/19 18:10 Tear Drop Cells Not Reportable 03/28/19 18:10 Ovalocytes Not Reportable 03/28/19 18:10 Stomatocytes Few 03/26/19 Unknown Helmet Cells Not Reportable 03/28/19 18:10 Shrestha-[place] Bodies Not Reportable 03/28/19 18:10 [place] Rings Not Reportable 03/28/19 18:10 Ballantine Cells Not Reportable 03/28/19 18:10 Bite Cells Not Reportable 03/28/19 18:10 Crenated Cell Not Reportable 03/28/19 18:10 Elliptocytes Not Reportable 03/28/19 18:10 Acanthocytes (Spur) Not Reportable 03/28/19 18:10 Rouleaux Not Reportable 03/28/19 18:10 Hemoglobin C Crystals Not Reportable 03/28/19 18:10 Schistocytes Not Reportable 03/28/19 18:10 Malaria parasites Not Reportable 03/28/19 18:10 Phil Bodies Not Reportable 03/28/19 18:10 Hem Pathologist Commnt No 03/28/19 18:10 PT 15.3 Sec. (12.2-14.9) H 03/29/19 11:48 INR 1.24 (0.87-1.13) H 03/29/19 11:48 APTT 26.6 Sec. (24.2-36.6) 03/28/19 12:00 Fibrinogen 226 mg/dl (211-480) 03/28/19 12:00 D-Dimer 4845.98 ng/mlDDU (0-234) H 03/28/19 12:00 Heparin Anti-Xa Level 0.23 U.I./ml (0.3-0.7) L 03/28/19 05:13 POC ABG pH 7.401 (7.35-7.45) 04/07/19 12:57 ABG pH 7.388 pH Units (7.350-7.450) 04/06/19 05:20 POC ABG pCO2 41.5 (35-45) 04/07/19 12:57 ABG pCO2 38.5 mm Hg 04/06/19 05:20 POC ABG pO2 107 (80-105) H 04/07/19 12:57 ABG pO2 104.0 mm Hg (80.0-90.0) H 04/06/19 05:20 POC ABG HCO3 25.7 (22-26 mml/L) 04/07/19 12:57 ABG HCO3 22.6 mmol/L (20.0-26.0) 04/06/19 05:20 POC ABG Total CO2 27 (23-27mmol/L) 04/07/19 12:57 POC ABG O2 Sat 98 04/07/19 12:57 ABG O2 Saturation 97.8 % (95.0-99.0) 04/06/19 05:20 ABG O2 Content 10.0 (0.0-44) 04/06/19 05:20 POC ABG Base Excess 1 ((-2) - (+3)mmol/L) 04/07/19 12:57 ABG Base Excess -2.1 mmol/L (-2.0-3.0) L 04/06/19 05:20 ABG Hemoglobin 7.3 gm/dl (14.0-18.0) L 04/06/19 05:20 ABG Carboxyhemoglobin 1.7 % (0.0-5.0) 04/06/19 05:20 ABG Methemoglobin 0.6 % (0.0-1.5) 04/06/19 05:20 Oxyhemoglobin 95.5 % (95.0-99.0) 04/06/19 05:20 FiO2 30 % 04/07/19 12:57 Sodium 138 mmol/L (137-145) 04/09/19 04:28 Potassium 3.5 mmol/L (3.6-5.0) L 04/09/19 04:28 Chloride 97.8 mmol/L (98-107) L 04/09/19 04:28 Carbon Dioxide 22 mmol/L (22-30) 04/09/19 04:28 Anion Gap 22 mmol/L 04/09/19 04:28 BUN 62 mg/dL (9-20) H 04/09/19 04:28 Creatinine 8.1 mg/dL (0.8-1.5) H 04/09/19 04:28 Estimated GFR 7 ml/min 04/09/19 04:28 BUN/Creatinine Ratio 8 % 04/09/19 04:28 Glucose 80 mg/dL (75-100) 04/09/19 04:28 POC Glucose 92 (70-105) 04/09/19 13:13 Lactic Acid 1.90 mmol/L (0.7-2.0) 03/21/19 21:31 Calcium 8.2 mg/dL (8.4-10.2) L 04/09/19 04:28 Ionized Calcium 3.7 mg/dL (4.8-5.6) L 03/30/19 12:09 Phosphorus 5.10 mg/dL (2.5-4.5) H 04/09/19 04:28 Magnesium 1.90 mg/dL (1.7-2.3) 03/31/19 15:07 Iron 26 ug/dL (49-181) L 04/02/19 05:03 TIBC 138 mcg/dL (250-450) L 04/02/19 05:03 Ferritin 607.0 ng/mL (13.0-400.0) H 04/02/19 05:03 Total Bilirubin 0.50 mg/dL (0.1-1.2) 03/31/19 08:20 Direct Bilirubin 0.4 mg/dL (0-0.2) H 03/31/19 08:20 Indirect Bilirubin 0.1 mg/dL 03/31/19 08:20 AST 60 units/L (5-40) H 03/31/19 08:20 ALT 30 units/L (7-56) 03/31/19 08:20 Alkaline Phosphatase 59 units/L (35-129) 03/31/19 08:20 Total Creatine Kinase 62 units/L (55-170) 04/07/19 05:40 CK-MB (CK-2) 54.3 ng/mL (0.0-4.0) H 03/17/19 07:16 CK-MB (CK-2) Rel Index 0.0 (0-4) 03/17/19 07:16 Troponin T 0.058 ng/mL (0.00-0.029) H 03/17/19 07:16 C-Reactive Protein 13.30 mg/dL (0.00-1.30) H 03/20/19 14:45 Total Protein 4.8 g/dL (6.3-8.2) L 03/31/19 08:20 Albumin 2.1 g/dL (3.9-5) L 03/31/19 08:20 Albumin/Globulin Ratio 0.8 % 03/31/19 08:20 Triglycerides 309 mg/dL (2-149) H 03/29/19 06:22 Cholesterol 88 mg/dL (50-199) 03/16/19 22:32 LDL Cholesterol Direct 10 mg/dL (50-130) L 03/16/19 22:32 HDL Cholesterol 7 mg/dL (40-59) L 03/16/19 22:32 Cholesterol/HDL Ratio 12.57 % 03/16/19 22:32 Vitamin B12 903.0 pg/mL (211-911) 04/02/19 05:03 Folate 8.05 ng/mL (7.3-26.0) 04/02/19 05:03 Procalcitonin 25.42 ng/mL (<0.15) 03/27/19 19:21 TSH 2.200 mlU/mL (0.270-4.200) 03/16/19 17:05 Free T4 0.72 ng/dL (0.76-1.46) L 03/16/19 17:05 PTH Intact 329.9 pg/mL (15-65) H 03/25/19 05:00 Urine Color Kathy (Yellow) 04/05/19 16:50 Urine Turbidity Cloudy (Clear) 04/05/19 16:50 Urine pH 5.0 (5.0-7.0) 04/05/19 16:50 Ur Specific [place] 1.018 (1.003-1.030) 04/05/19 16:50 Urine Protein 100 mg/dl mg/dL (Negative) 04/05/19 16:50 Urine Glucose (UA) Neg mg/dL (Negative) 04/05/19 16:50 Urine Ketones Neg mg/dL (Negative) 04/05/19 16:50 Urine Blood Lg (Negative) 04/05/19 16:50 Urine Nitrite Neg (Negative) 04/05/19 16:50 Urine Bilirubin Neg (Negative) 04/05/19 16:50 Urine Urobilinogen < 2.0 mg/dL (<2.0) 04/05/19 16:50 Ur Leukocyte Esterase Tr (Negative) 04/05/19 16:50 Urine WBC (Auto) 40.0 /HPF (0.0-6.0) H 04/05/19 16:50 Urine RBC (Auto) > 182.0 /HPF (0.0-6.0) 04/05/19 16:50 U Epithel Cells (Auto) < 1.0 /HPF (0-13.0) 03/17/19 16:05 Amorphous Crystals 1+ 04/05/19 16:50 Urine Mucus Few /HPF 03/17/19 16:05 Urine Sperm 2+ /HPF (ALFALFA DEHYDRATOR OPERATOR) 03/17/19 16:05 Urine Eosinophils None seen (None Seen) 03/17/19 16:05 Urine Creatinine 106.6 mg/dL (0.1-20.0) H 03/17/19 16:05 Urine Sodium 95 mmol/L 03/17/19 16:05 Vancomycin Trough 11.5 ug/mL (5.0-20.0) 03/18/19 13:19 Random Vancomycin 16.6 ug/mL (0-40.0) 03/30/19 04:31 Salicylates < 0.3 mg/dL (2.8-20.0) L 03/16/19 17:05 Urine Opiates Screen Presumptive negative 03/17/19 16:05 Urine Methadone Screen Presumptive negative 03/17/19 16:05 Acetaminophen < 5.0 ug/mL (10.0-30.0) L 03/16/19 17:05 Ur Barbiturates Screen Presumptive negative 03/17/19 16:05 Ur Phencyclidine Scrn Presumptive negative 03/17/19 16:05 Ur Amphetamines Screen Presumptive negative 03/17/19 16:05 U Benzodiazepines Scrn Presumptive positive 03/17/19 16:05 Urine Cocaine Screen Presumptive negative 03/17/19 16:05 U Marijuana (THC) Screen Presumptive negative 03/17/19 16:05 Drugs of Abuse Note Disclamer 03/17/19 16:05 Plasma/Serum Alcohol < 0.01 % (0-0.07) 03/16/19 17:05 Hepatitis A IgM Ab Non-reactive (NonReactive) 03/18/19 13:18 Hep Bs Antigen Non-reactive (Negative) 03/18/19 13:18 Hep B Core IgM Ab Non-reactive (NonReactive) 03/18/19 13:18 Hepatitis C Antibody Non-reactive (NonReactive) 03/18/19 13:18 HIV 1&2 Antibody Rapid Non react (Non React) 03/17/19 11:52 HIV P24 Antigen Non react (Non React) 03/17/19 11:52 Influenza A (Rapid) Negative (Negative) 03/17/19 17:00 Influenza B (Rapid) Negative (Negative) 03/17/19 17:00 Group A Strep Rapid Negative (Negative) 03/17/19 17:00 Miscellaneous Test Flexitest 1 03/21/19 12:00 Blood Type A POSITIVE 04/02/19 16:34 Antibody Screen Negative 04/02/19 16:34 Crossmatch See Detail 04/02/19 16:34 Active Medications - Current Medications Current Medications: Generic Name Dose Route Start Last Admin Trade Name Freq PRN Reason Stop Dose Admin Acetaminophen 650 mg 04/02/19 23:26 04/06/19 00:22 Tylenol PO 650 mg Q4H PRN Administration Pain, Mild (1-3),temp>100.5 Albuterol 2.5 mg 03/29/19 13:08 Proventil IH Q4HRT PRN Shortness Of Breath Amiodarone HCl 400 mg 04/04/19 12:00 04/09/19 08:00 Cordarone PO 400 mg TID PAOLO Administration Lipase/Protease/Amylase 1 each 03/17/19 14:45 Pancrekarly Purcell 10,500 Unit FEEDTUBE PRN PRN For Clogged Feeding Tube Bacitracin 1 applic 04/09/19 02:43 04/09/19 03:47 Antibiotic Oint TP 1 applic PRN PRN Administration upper lip sore/open Calcium Acetate 1,334 mg 03/31/19 14:00 04/09/19 08:00 Phoslo PO 1,334 mg TID PAOLO Administration Dextrose 50 gm 03/19/19 18:39 03/26/19 23:26 D50w (25gm) Vial IV 50 gm PRN PRN Administration Hypoglycemia Epoetin Jet 20,000 unit 03/31/19 10:15 04/06/19 10:41 Procrit SUB-Q 20,000 unit NEYMAR PRN Administration hemodialysis Fentanyl 50 mcg 03/26/19 12:00 04/05/19 14:47 Sublimaze IV 50 mcg Q1H PRN Administration Pain, Moderate (4-6) Hydrophilic Ointment 1 applic 03/16/19 15:50 Vaseline Lip Therapy TP Q2HR PRN Dry Lips Dextrose/Sodium Chloride 1,000 mls @ 42 mls/hr 04/07/19 19:00 04/08/19 15:00 D5/0.45ns IV 0 mls/hr DIRECT PAOLO Infusion Sodium Chloride 100 mls @ 999 mls/hr 04/09/19 07:02 Nacl 0.9% IV NEYMAR PRN Hypotension Metoprolol Tartrate 25 mg 04/09/19 14:00 Lopressor PO TID PAOLO Multi-Ingred Cream/Lotion/Oil/Oint 1 applic 03/16/19 15:50 03/19/19 20:10 Artificial Tears Ophth Oint OU 1 applic Q4HR PRN Administration Dry Eye(s) Ondansetron HCl 4 mg 03/16/19 22:21 04/06/19 23:50 Zofran IV 4 mg Q8H PRN Administration Nausea And Vomiting Pantoprazole Sodium 40 mg 04/04/19 22:00 04/09/19 10:00 Protonix IV 40 mg BID PAOLO Administration Paricalcitol 2 mcg 03/30/19 10:00 04/09/19 10:00 Zemplar IV 2 mcg DAILY PALOO Administration Simple Syrup 15 ml 03/17/19 14:45 03/26/19 23:19 Simple Syrup FEEDTUBE 15 ml PRN PRN Administration Hypoglycemia Simple Syrup 30 ml 03/17/19 14:45 Simple Syrup FEEDTUBE PRN PRN Hypoglycemia Sodium Bicarbonate 325 mg 03/17/19 14:45 Sodium Bicarbonate FEEDTUBE PRN PRN For Clogged Feeding Tube Nutrition/Malnutrition Assess - Dietary Evaluation Nutrition/Malnutrition Findings: Nutrition Notes Start: 03/17/19 14:22 Freq: Status: Active Protocol: Document 04/09/19 12:59 LM (Rec: 04/09/19 13:02 LM [id number]) Nutrition Notes Initial or Follow up Reassessment Current Diagnosis Acute Kidney Injury Other Pertinent Diagnosis on HD, Septic shock,Multiple organ failure, encephalopathy, rhabdomyolysis Current Diet Nepro with Carbsteady at 55ml/ hr Labs/Tests K 3.1 BUN 8 Cr 0.7 BG 101 Pertinent Medications Reviewed Height 6 ft Weight 148.5 kg [place] Body Weight (kg) 80.90 BMI 44.4 Subjective/Other Information Pt extubated. Pt getting HD at time of visit. TF not running . Percent of energy/protein needs met: 0%/0% Burn Absent Trauma Absent Minimum of two criteria No #1 Nutrition Diagnosis Inadequate oral intake Diagnosis Progress(for reassessment Continues documentation) Is patient on ventilator? No Is Patient Ambulatory and/or Out of Bed No REE-([facility]-confined to bed) 2892.144 Kcal/Kg value to use for calculation 14 Approximate Energy Requirements Using 2079 kcal/Kg Calculation Used for Recommendations Kcal/kg Additional Notes Protein: 138-173g (1.2-1.5g/kg adjBW 115 kg) Fluids:1 ml/kcal or per MD Nutrition Intervention Change Diet Order: Diet advancement when medically feasible Goal #1 Diet advancement Anticipated Discharge Needs: Unable to determine at this time Follow-Up By: 04/11/19 Additional Comments F/U for diet advancement/POC
[2019-04-10] MEDS: PANTOPRAZOLE 40 MG INJ IV SCH ×3 (00:03→21:46)
[2019-04-10] MEDS: AMIODARONE 900 MG in DEXTROSE 5% IN WATER 482 ML IV SCH ×2 (00:59→23:05)
--- NOTE | 2019-04-10 07:23 | Hem/Onc Progress Note ---
Assessment and Plan 1. h/o Anemia. The patient has history of bleeding. 2. Internal jugular partial thrombosis. The patient was started on heparin. This has been held due to bleeding 3. Gastrointestinal bleed. 4. h/o Elevated creatinine kinase. 5. h/o Low calcium. 6. h/o Thrombocytopenia. 7. h/o Renal failure. 8. h/o Intubation. 9. s/p Transfusion support. 10. Leukocytosis. At this time, supportive care may help the patient. The patient's platelet was low at admission. Urine toxicology was negative. awake extubated dvt - off anticoagulation - due to bleeding platelet - > 100 s/p iv iron trial - Patient Problems (1) DVT (deep venous thrombosis) Current Visit: Yes Status: Acute Subjective Date of service: 04/10/19 Principal diagnosis: anemia - IJ DVT Interval history: awake Objective - Exam Narrative Exam: Pain - none now General appearance - awake - extubated Performance status limited self care Eyes - no icterus ENT - extubated LNs cervical not palpable Neck - no LN Respiratory Normal Breath sounds - CTA anteriorly CVS S1 S2 + Extremities edema + General GI Soft Rectal deferred male - deferred Skin warm Musculoskeletal awake Neurologically awake - Constitutional Vitals: Last Vital Signs Temp 100.3 F H 04/10/19 03:22 Pulse 93 H 04/10/19 06:45 Resp 24 04/10/19 06:45 BP 135/78 04/10/19 06:45 Pulse Ox 99 04/10/19 06:45 - Labs Lab Results: Laboratory Results - last 24 hr 04/08/19 04/08/19 04/09/19 12:20 17:47 13:13 POC Glucose 97 96 92 04/09/19 04/09/19 04/10/19 20:09 23:36 05:05 POC Glucose 98 90 93 Medications & Allergies - Medications Allergies/Adverse Reactions: Allergies No Known Allergies Allergy (Unverified 03/16/19 17:17) Home Medications: Home Medications Medication Instructions Recorded Confirmed Last Taken Type Unobtainable 03/18/19 03/18/19 Unknown History Active Medications: Generic Name Dose Route Start Last Admin Trade Name Freq PRN Reason Stop Dose Admin Acetaminophen 650 mg 04/02/19 23:26 04/06/19 00:22 Tylenol PO 650 mg Q4H PRN Administration Pain, Mild (1-3),temp>100.5 Albuterol 2.5 mg 03/29/19 13:08 Proventil IH Q4HRT PRN Shortness Of Breath Lipase/Protease/Amylase 1 each 03/17/19 14:45 Pancrekarly Purcell 10,500 Unit FEEDTUBE PRN PRN For Clogged Feeding Tube Bacitracin 1 applic 04/09/19 02:43 04/09/19 03:47 Antibiotic Oint TP 1 applic PRN PRN Administration upper lip sore/open Calcium Acetate 1,334 mg 03/31/19 14:00 04/09/19 21:50 Phoslo PO Not Given TID PAOLO Dextrose 50 gm 03/19/19 18:39 03/26/19 23:26 D50w (25gm) Vial IV 50 gm PRN PRN Administration Hypoglycemia Epoetin Jet 20,000 unit 03/31/19 10:15 04/06/19 10:41 Procrit SUB-Q 20,000 unit NEYMAR PRN Administration hemodialysis Fentanyl 50 mcg 03/26/19 12:00 04/05/19 14:47 Sublimaze IV 50 mcg Q1H PRN Administration Pain, Moderate (4-6) Hydrophilic Ointment 1 applic 03/16/19 15:50 Vaseline Lip Therapy TP Q2HR PRN Dry Lips Dextrose/Sodium Chloride 1,000 mls @ 42 mls/hr 04/07/19 19:00 04/08/19 15:00 D5/0.45ns IV 0 mls/hr DIRECT PAOLO Infusion Sodium Chloride 100 mls @ 999 mls/hr 04/09/19 07:02 Nacl 0.9% IV NEYMAR PRN Hypotension Amiodarone HCl 900 mg/ 500 mls @ 33.333 mls/hr 04/10/19 01:00 04/10/19 00:59 Dextrose IV 1 mg/min DIRECT PAOLO 33.333 mls/hr Administration Protocol 1 MG/MIN Multi-Ingred Cream/Lotion/Oil/Oint 1 applic 03/16/19 15:50 03/19/19 20:10 Artificial Tears Ophth Oint OU 1 applic Q4HR PRN Administration Dry Eye(s) Ondansetron HCl 4 mg 03/16/19 22:21 04/06/19 23:50 Zofran IV 4 mg Q8H PRN Administration Nausea And Vomiting Pantoprazole Sodium 40 mg 04/04/19 22:00 04/10/19 00:03 Protonix IV 40 mg BID PAOLO Administration Paricalcitol 2 mcg 03/30/19 10:00 04/09/19 10:00 Zemplar IV 2 mcg DAILY PAOLO Administration Simple Syrup 15 ml 03/17/19 14:45 03/26/19 23:19 Simple Syrup FEEDTUBE 15 ml PRN PRN Administration Hypoglycemia Simple Syrup 30 ml 03/17/19 14:45 Simple Syrup FEEDTUBE PRN PRN Hypoglycemia Sodium Bicarbonate 325 mg 03/17/19 14:45 Sodium Bicarbonate FEEDTUBE PRN PRN For Clogged Feeding Tube
[2019-04-10] MEDS: CALCIUM ACETATE 667 MG CAP PO SCH ×3 (08:00→21:46)
--- NOTE | 2019-04-10 09:26 | Progress Note ---
Assessment and Plan Severe sepsis with shock. Right axilla abscess versus localized pannus/fatty collection. Acute hypoxemic respiratory failure, s/p mechanical ventilator support. Likely aspiration pneumonia, bilateral. Morbid obesity. Acute kidney injury secondary to ATN on HD. Leukocytosis-resolved Elevated serum transaminases/possible shock liver. Acute encephalopathy, toxic metabolic Thrombocytopenia- etiology, multifactorial- improving RIJ non-occlusive thrombus Oropharyngeal dysphagia Acute blood loss anemia with hemorrhagic shock- resolved Critical illness myopathy -Encouraged to continue to adhere to nocturnal BIPAP -wean FiO2 for O2 sats>92% -CO OP to re-evaluate and treat -Monitor QTc as he is on multiple medications that can prolong QT - Contiue to monitor off antibiotics - continue HD/UF per nephrology -Aspiration precautions, HOB >40 - prn analgesia per CPOT score - prn supportive blood transfusions to keep HgB > 7.0 - Monitor hemodynamics closely - continue mobility protocols and off loading as tolerated for pressure ulcer prevention - continue to avoid nephrotoxins, adjust all medications for GFR and CRCL - continue GI & VTE prophylaxis ( SCDs and therapeutic pantoprazole, dosed for renal function) - accuchecks with glycemic control per SSI for target BG of 140-180 mg/dl - avoid hypoglycemia -PT/OT/CO OP -Plan to transfer to [facility] Extensive discussions with his brother, updated him and answered all his questions CONDITION: IMPROVING PROGNOSIS: FAIR CODE STATUS: DNAR Subjective Date of service: 04/10/19 Principal diagnosis: anemia - IJ DVT Interval history: Patient is seen today for: Severe sepsis with shock; Acute hypoxemic respiratory failure; Aspiration pneumonia; Morbid obesity; Rhabdomyolysis; Acute kidney injury; Morbid obesity; Elevated serum transaminases/possible shock liver; Acute encephalopathy (Toxic/Met) Seen and examined at bedside; 24hour events reviewed; nursing and respiratory care staff consulted; no adverse overnight events reported to me; resting peacefully in bed; Initial CO OP evaluation shows evidence of aspiration. No fevers. Vitals, labs, medications, chart and imaging reviewed. Objective Vital Signs - 12hr 04/09/19 04/09/19 04/09/19 21:30 21:45 21:56 Temperature Pulse Rate 87 85 85 Pulse Rate [ From Monitor] Respiratory 34 H 34 H 35 H Rate Blood Pressure 130/73 132/70 132/70 O2 Sat by Pulse 98 99 98 Oximetry 04/09/19 04/09/19 04/09/19 22:00 22:15 22:30 Temperature Pulse Rate 85 86 133 H Pulse Rate [ From Monitor] Respiratory 35 H 37 H 24 Rate Blood Pressure 130/73 132/72 114/80 O2 Sat by Pulse 98 98 98 Oximetry 04/09/19 04/09/19 04/09/19 22:45 23:00 23:15 Temperature Pulse Rate 88 85 96 H Pulse Rate [ From Monitor] Respiratory 40 H 33 H 31 H Rate Blood Pressure 130/71 122/73 130/80 O2 Sat by Pulse 97 100 98 Oximetry 04/09/19 04/09/19 04/09/19 23:30 23:41 23:46 Temperature 99.4 F Pulse Rate 84 133 H Pulse Rate [ From Monitor] Respiratory 32 H 36 H Rate Blood Pressure 128/73 122/86 O2 Sat by Pulse 98 98 Oximetry 04/10/19 04/10/19 04/10/19 00:00 00:16 00:30 Temperature Pulse Rate 128 H 93 H 90 Pulse Rate [ 111 H From Monitor] Respiratory 39 H 42 H 36 H Rate Blood Pressure 124/88 126/76 131/78 O2 Sat by Pulse 99 99 99 Oximetry 04/10/19 04/10/19 04/10/19 00:45 01:00 01:16 Temperature Pulse Rate 87 125 H 91 H Pulse Rate [ From Monitor] Respiratory 33 H 24 36 H Rate Blood Pressure 129/70 133/79 126/71 O2 Sat by Pulse 97 96 98 Oximetry 04/10/19 04/10/19 04/10/19 01:30 01:35 01:45 Temperature Pulse Rate 89 87 Pulse Rate [ From Monitor] Respiratory 38 H 37 H Rate Blood Pressure 128/72 126/75 O2 Sat by Pulse 96 100 97 Oximetry 04/10/19 04/10/19 04/10/19 02:00 02:16 02:30 Temperature Pulse Rate 88 131 H 92 H Pulse Rate [ From Monitor] Respiratory 35 H 37 H 39 H Rate Blood Pressure 130/74 135/78 132/78 O2 Sat by Pulse 98 98 98 Oximetry 04/10/19 04/10/19 04/10/19 02:45 03:00 03:16 Temperature Pulse Rate 91 H 86 84 Pulse Rate [ From Monitor] Respiratory 37 H 24 17 Rate Blood Pressure 135/77 135/77 135/77 O2 Sat by Pulse 98 99 99 Oximetry 04/10/19 04/10/19 04/10/19 03:22 03:30 03:45 Temperature 100.3 F H Pulse Rate 132 H 132 H Pulse Rate [ From Monitor] Respiratory 23 31 H Rate Blood Pressure 134/85 O2 Sat by Pulse 99 99 Oximetry 04/10/19 04/10/19 04/10/19 04:00 04:16 04:30 Temperature Pulse Rate 137 H 142 H 132 H Pulse Rate [ 111 H From Monitor] Respiratory 24 31 H 35 H Rate Blood Pressure 132/82 130/84 142/76 O2 Sat by Pulse 100 99 99 Oximetry 04/10/19 04/10/19 04/10/19 04:46 05:00 05:15 Temperature Pulse Rate 144 H 151 H 128 H Pulse Rate [ From Monitor] Respiratory 19 26 H 30 H Rate Blood Pressure 136/85 136/85 138/84 O2 Sat by Pulse 99 99 99 Oximetry 04/10/19 04/10/19 04/10/19 05:30 05:45 06:00 Temperature Pulse Rate 91 H 91 H 90 Pulse Rate [ From Monitor] Respiratory 19 23 17 Rate Blood Pressure 137/82 139/79 135/79 O2 Sat by Pulse 99 99 99 Oximetry 04/10/19 04/10/19 04/10/19 06:15 06:30 06:45 Temperature Pulse Rate 91 H 92 H 93 H Pulse Rate [ From Monitor] Respiratory 23 19 24 Rate Blood Pressure 137/81 141/79 135/78 O2 Sat by Pulse 99 99 99 Oximetry 04/10/19 07:59 Temperature Pulse Rate Pulse Rate [ From Monitor] Respiratory Rate Blood Pressure O2 Sat by Pulse 99 Oximetry Constitutional: no acute distress, alert Eyes: non-icteric ENT: oropharynx moist, other ( ulcers over his upper lip) Neck: supple, no lymphadenopathy, no JVD, other (large neck circumference, RIJ trialysis catheter) Effort: mildly labored Ascultation: Bilateral: diminished breath sounds, rales, rhonchi Percussion: Bilateral: not dull Cardiovascular: regular rate and rhythm, other ( S1,S2, no murmurs) Gastrointestinal: normoactive bowel sounds, soft, non-tender Integumentary: normal, other (blisters with some weeping over the extremities) Extremities: no cyanosis, pink and warm, pulses normal, no ischemia or petechiae, edema Neurologic: normal mental status, non-focal exam (grossly), pupils equal and round, CN II-XII normal, other (obeys commands, globally weak) Psychiatric: mood appropriate, affect normal CBC and BMP: 04/13/19 05:00 04/13/19 05:00 ABG, PT/INR, D-dimer: ABG POC ABG pH 7.401 (7.35-7.45) 04/07/19 12:57 ABG pH 7.388 pH Units (7.350-7.450) 04/06/19 05:20 POC ABG pCO2 41.5 (35-45) 04/07/19 12:57 ABG pCO2 38.5 mm Hg 04/06/19 05:20 POC ABG pO2 107 (80-105) H 04/07/19 12:57 ABG pO2 104.0 mm Hg (80.0-90.0) H 04/06/19 05:20 POC ABG HCO3 25.7 (22-26 mml/L) 04/07/19 12:57 POC ABG Total CO2 27 (23-27mmol/L) 04/07/19 12:57 POC ABG O2 Sat 98 04/07/19 12:57 ABG O2 Saturation 97.8 % (95.0-99.0) 04/06/19 05:20 PT/INR, D-dimer PT 15.3 Sec. (12.2-14.9) H 03/29/19 11:48 INR 1.24 (0.87-1.13) H 03/29/19 11:48 D-Dimer 4845.98 ng/mlDDU (0-234) H 03/28/19 12:00 Abnormal lab findings: Abnormal Labs 03/16/19 03/16/19 03/16/19 15:32 16:03 16:05 WBC 27.0 H RBC 5.55 H Hgb 15.7 H Hct 47.1 H RDW Plt Count 75 L Lymph % (Auto) [place] % (Auto) Lymph # Seg Neutrophils % Seg Neuts % (Manual) 85.0 H Lymphocytes % (Manual) 2.0 L Monocytes % (Manual) Nucleated RBC % Seg Neutrophils # Seg Neutrophils # Man 23.0 H Lymphocytes # (Manual) 0.5 L Monocytes # (Manual) PT INR D-Dimer Heparin Anti-Xa Level POC ABG pH ABG pH POC ABG pCO2 POC ABG pO2 ABG pO2 ABG HCO3 ABG O2 Saturation ABG Base Excess ABG Hemoglobin Oxyhemoglobin Sodium 127 L Potassium Chloride 87.8 L Carbon Dioxide 17 L BUN 49 H Creatinine 5.8 H Glucose 150 H POC Glucose 118 H Lactic Acid Calcium 6.6 L Ionized Calcium Phosphorus Magnesium 1.10 L Iron TIBC Ferritin Total Bilirubin Direct Bilirubin AST ALT Alkaline Phosphatase Total Creatine Kinase 98753 H CK-MB (CK-2) Troponin T C-Reactive Protein Total Protein Albumin Triglycerides LDL Cholesterol Direct HDL Cholesterol Free T4 PTH Intact Urine WBC (Auto) Urine Creatinine Salicylates Acetaminophen Crossmatch 03/16/19 03/16/19 03/16/19 16:59 17:05 17:05 WBC RBC Hgb Hct RDW Plt Count Lymph % (Auto) [place] % (Auto) Lymph # Seg Neutrophils % Seg Neuts % (Manual) Lymphocytes % (Manual) Monocytes % (Manual) Nucleated RBC % Seg Neutrophils # Seg Neutrophils # Man Lymphocytes # (Manual) Monocytes # (Manual) PT INR D-Dimer Heparin Anti-Xa Level POC ABG pH 7.297 L ABG pH POC ABG pCO2 33.0 L POC ABG pO2 ABG pO2 ABG HCO3 ABG O2 Saturation ABG Base Excess ABG Hemoglobin Oxyhemoglobin Sodium Potassium Chloride Carbon Dioxide BUN Creatinine Glucose POC Glucose Lactic Acid Calcium Ionized Calcium Phosphorus Magnesium Iron TIBC Ferritin Total Bilirubin Direct Bilirubin AST ALT Alkaline Phosphatase Total Creatine Kinase 91720 H CK-MB (CK-2) 83.1 H Troponin T C-Reactive Protein Total Protein Albumin Triglycerides LDL Cholesterol Direct HDL Cholesterol Free T4 0.72 L PTH Intact Urine WBC (Auto) Urine Creatinine Salicylates Acetaminophen Crossmatch 03/16/19 03/16/19 03/16/19 17:05 17:05 17:05 WBC RBC Hgb Hct RDW Plt Count Lymph % (Auto) [place] % (Auto) Lymph # Seg Neutrophils % Seg Neuts % (Manual) Lymphocytes % (Manual) Monocytes % (Manual) Nucleated RBC % Seg Neutrophils # Seg Neutrophils # Man Lymphocytes # (Manual) Monocytes # (Manual) PT INR D-Dimer Heparin Anti-Xa Level POC ABG pH ABG pH POC ABG pCO2 POC ABG pO2 ABG pO2 ABG HCO3 ABG O2 Saturation ABG Base Excess ABG Hemoglobin Oxyhemoglobin Sodium Potassium Chloride Carbon Dioxide BUN Creatinine Glucose POC Glucose Lactic Acid 5.10 H* Calcium Ionized Calcium Phosphorus Magnesium Iron TIBC Ferritin Total Bilirubin Direct Bilirubin AST ALT Alkaline Phosphatase Total Creatine Kinase CK-MB (CK-2) Troponin T C-Reactive Protein Total Protein Albumin Triglycerides LDL Cholesterol Direct HDL Cholesterol Free T4 PTH Intact Urine WBC (Auto) Urine Creatinine Salicylates < 0.3 L Acetaminophen < 5.0 L Crossmatch 03/16/19 03/16/19 03/16/19 17:05 17:05 20:35 WBC RBC Hgb Hct RDW Plt Count Lymph % (Auto) [place] % (Auto) Lymph # Seg Neutrophils % Seg Neuts % (Manual) Lymphocytes % (Manual) Monocytes % (Manual) Nucleated RBC % Seg Neutrophils # Seg Neutrophils # Man Lymphocytes # (Manual) Monocytes # (Manual) PT 15.9 H INR 1.30 H D-Dimer Heparin Anti-Xa Level POC ABG pH ABG pH POC ABG pCO2 POC ABG pO2 ABG pO2 ABG HCO3 ABG O2 Saturation ABG Base Excess ABG Hemoglobin Oxyhemoglobin Sodium Potassium Chloride Carbon Dioxide BUN Creatinine Glucose POC Glucose Lactic Acid 3.30 H* Calcium Ionized Calcium Phosphorus Magnesium Iron TIBC Ferritin Total Bilirubin 6.20 H Direct Bilirubin 5.9 H AST 800 H ALT 120 H Alkaline Phosphatase Total Creatine Kinase CK-MB (CK-2) Troponin T C-Reactive Protein Total Protein 4.4 L Albumin 2.4 L Triglycerides LDL Cholesterol Direct HDL Cholesterol Free T4 PTH Intact Urine WBC (Auto) Urine Creatinine Salicylates Acetaminophen Crossmatch 03/16/19 03/16/19 03/16/19 21:45 22:32 Unknown WBC RBC Hgb Hct RDW Plt Count Lymph % (Auto) [place] % (Auto) Lymph # Seg Neutrophils % Seg Neuts % (Manual) Lymphocytes % (Manual) Monocytes % (Manual) Nucleated RBC % Seg Neutrophils # Seg Neutrophils # Man Lymphocytes # (Manual) Monocytes # (Manual) PT INR D-Dimer Heparin Anti-Xa Level POC ABG pH ABG pH POC ABG pCO2 POC ABG pO2 ABG pO2 ABG HCO3 ABG O2 Saturation ABG Base Excess ABG Hemoglobin Oxyhemoglobin Sodium Potassium Chloride Carbon Dioxide BUN Creatinine Glucose POC Glucose Lactic Acid 3.30 H* 3.00 H* Calcium Ionized Calcium Phosphorus Magnesium Iron TIBC Ferritin Total Bilirubin Direct Bilirubin AST ALT Alkaline Phosphatase Total Creatine Kinase CK-MB (CK-2) Troponin T 0.047 H D C-Reactive Protein Total Protein Albumin Triglycerides 395 H LDL Cholesterol Direct 10 L HDL Cholesterol 7 L Free T4 PTH Intact Urine WBC (Auto) Urine Creatinine Salicylates Acetaminophen Crossmatch 03/17/19 03/17/19 03/17/19 03:45 03:45 03:45 WBC RBC Hgb Hct RDW Plt Count Lymph % (Auto) [place] % (Auto) Lymph # Seg Neutrophils % Seg Neuts % (Manual) Lymphocytes % (Manual) Monocytes % (Manual) Nucleated RBC % Seg Neutrophils # Seg Neutrophils # Man Lymphocytes # (Manual) Monocytes # (Manual) PT INR D-Dimer Heparin Anti-Xa Level POC ABG pH ABG pH POC ABG pCO2 POC ABG pO2 ABG pO2 ABG HCO3 ABG O2 Saturation ABG Base Excess ABG Hemoglobin Oxyhemoglobin Sodium 131 L Potassium Chloride 88.9 L Carbon Dioxide BUN 53 H Creatinine 7.1 H Glucose POC Glucose Lactic Acid 4.10 H* Calcium 5.4 L* D Ionized Calcium Phosphorus 7.30 H Magnesium 1.60 L Iron TIBC Ferritin Total Bilirubin 5.90 H Direct Bilirubin AST 801 H ALT 109 H Alkaline Phosphatase Total Creatine Kinase 41751 H 68622 H CK-MB (CK-2) 41.5 H Troponin T 0.054 H C-Reactive Protein Total Protein 4.5 L Albumin 2.0 L Triglycerides LDL Cholesterol Direct HDL Cholesterol Free T4 PTH Intact Urine WBC (Auto) Urine Creatinine Salicylates Acetaminophen Crossmatch 03/17/19 03/17/19 03/17/19 05:47 07:16 07:16 WBC RBC Hgb Hct RDW Plt Count Lymph % (Auto) [place] % (Auto) Lymph # Seg Neutrophils % Seg Neuts % (Manual) Lymphocytes % (Manual) Monocytes % (Manual) Nucleated RBC % Seg Neutrophils # Seg Neutrophils # Man Lymphocytes # (Manual) Monocytes # (Manual) PT INR D-Dimer Heparin Anti-Xa Level POC ABG pH 7.193 L ABG pH POC ABG pCO2 45.2 H POC ABG pO2 65 L ABG pO2 ABG HCO3 ABG O2 Saturation ABG Base Excess ABG Hemoglobin Oxyhemoglobin Sodium Potassium Chloride Carbon Dioxide BUN Creatinine Glucose POC Glucose Lactic Acid 5.50 H* Calcium Ionized Calcium Phosphorus Magnesium Iron TIBC Ferritin Total Bilirubin Direct Bilirubin AST ALT Alkaline Phosphatase Total Creatine Kinase 87727 H CK-MB (CK-2) 54.3 H Troponin T 0.058 H C-Reactive Protein Total Protein Albumin Triglycerides LDL Cholesterol Direct HDL Cholesterol Free T4 PTH Intact Urine WBC (Auto) Urine Creatinine Salicylates Acetaminophen Crossmatch 03/17/19 03/17/19 03/17/19 11:52 12:51 13:01 WBC RBC Hgb Hct RDW Plt Count Lymph % (Auto) [place] % (Auto) Lymph # Seg Neutrophils % Seg Neuts % (Manual) Lymphocytes % (Manual) Monocytes % (Manual) Nucleated RBC % Seg Neutrophils # Seg Neutrophils # Man Lymphocytes # (Manual) Monocytes # (Manual) PT INR D-Dimer Heparin Anti-Xa Level POC ABG pH 7.154 L ABG pH POC ABG pCO2 34.3 L POC ABG pO2 73 L ABG pO2 ABG HCO3 ABG O2 Saturation ABG Base Excess ABG Hemoglobin Oxyhemoglobin Sodium Potassium Chloride Carbon Dioxide BUN Creatinine Glucose POC Glucose 60 L Lactic Acid 8.20 H* Calcium Ionized Calcium Phosphorus Magnesium Iron TIBC Ferritin Total Bilirubin Direct Bilirubin AST ALT Alkaline Phosphatase Total Creatine Kinase CK-MB (CK-2) Troponin T C-Reactive Protein Total Protein Albumin Triglycerides LDL Cholesterol Direct HDL Cholesterol Free T4 PTH Intact Urine WBC (Auto) Urine Creatinine Salicylates Acetaminophen Crossmatch 03/17/19 03/17/19 03/17/19 14:37 14:37 14:37 WBC 29.3 H RBC Hgb Hct RDW 15.8 H Plt Count 45 L Lymph % (Auto) [place] % (Auto) Lymph # Seg Neutrophils % Seg Neuts % (Manual) 81.0 H Lymphocytes % (Manual) 1.0 L Monocytes % (Manual) 15.0 H Nucleated RBC % Seg Neutrophils # Seg Neutrophils # Man 23.7 H Lymphocytes # (Manual) 0.3 L Monocytes # (Manual) 4.4 H PT INR D-Dimer Heparin Anti-Xa Level POC ABG pH ABG pH POC ABG pCO2 POC ABG pO2 ABG pO2 ABG HCO3 ABG O2 Saturation ABG Base Excess ABG Hemoglobin Oxyhemoglobin Sodium Potassium Chloride Carbon Dioxide BUN Creatinine Glucose POC Glucose Lactic Acid 4.90 H* Calcium Ionized Calcium Phosphorus Magnesium Iron TIBC Ferritin Total Bilirubin Direct Bilirubin AST ALT Alkaline Phosphatase Total Creatine Kinase CK-MB (CK-2) Troponin T C-Reactive Protein 24.90 H Total Protein Albumin Triglycerides LDL Cholesterol Direct HDL Cholesterol Free T4 PTH Intact Urine WBC (Auto) Urine Creatinine Salicylates Acetaminophen Crossmatch 03/17/19 03/17/19 03/17/19 16:05 16:05 17:02 WBC RBC Hgb Hct RDW Plt Count Lymph % (Auto) [place] % (Auto) Lymph # Seg Neutrophils % Seg Neuts % (Manual) Lymphocytes % (Manual) Monocytes % (Manual) Nucleated RBC % Seg Neutrophils # Seg Neutrophils # Man Lymphocytes # (Manual) Monocytes # (Manual) PT INR D-Dimer Heparin Anti-Xa Level POC ABG pH 7.183 L ABG pH POC ABG pCO2 POC ABG pO2 65 L ABG pO2 ABG HCO3 ABG O2 Saturation ABG Base Excess ABG Hemoglobin Oxyhemoglobin Sodium Potassium Chloride Carbon Dioxide BUN Creatinine Glucose POC Glucose Lactic Acid Calcium Ionized Calcium Phosphorus Magnesium Iron TIBC Ferritin Total Bilirubin Direct Bilirubin AST ALT Alkaline Phosphatase Total Creatine Kinase CK-MB (CK-2) Troponin T C-Reactive Protein Total Protein Albumin Triglycerides LDL Cholesterol Direct HDL Cholesterol Free T4 PTH Intact Urine WBC (Auto) 30.0 H Urine Creatinine 106.6 H Salicylates Acetaminophen Crossmatch 03/18/19 03/18/19 03/18/19 05:12 05:16 05:53 WBC RBC Hgb Hct RDW Plt Count Lymph % (Auto) [place] % (Auto) Lymph # Seg Neutrophils % Seg Neuts % (Manual) Lymphocytes % (Manual) Monocytes % (Manual) Nucleated RBC % Seg Neutrophils # Seg Neutrophils # Man Lymphocytes # (Manual) Monocytes # (Manual) PT INR D-Dimer Heparin Anti-Xa Level POC ABG pH 7.257 L ABG pH POC ABG pCO2 31.6 L POC ABG pO2 69 L ABG pO2 ABG HCO3 ABG O2 Saturation ABG Base Excess ABG Hemoglobin Oxyhemoglobin Sodium Potassium Chloride Carbon Dioxide BUN Creatinine Glucose POC Glucose 141 H Lactic Acid 5.00 H* Calcium Ionized Calcium Phosphorus Magnesium Iron TIBC Ferritin Total Bilirubin Direct Bilirubin AST ALT Alkaline Phosphatase Total Creatine Kinase CK-MB (CK-2) Troponin T C-Reactive Protein Total Protein Albumin Triglycerides LDL Cholesterol Direct HDL Cholesterol Free T4 PTH Intact Urine WBC (Auto) Urine Creatinine Salicylates Acetaminophen Crossmatch 03/18/19 03/18/19 03/18/19 06:57 08:40 08:40 WBC 31.7 H RBC Hgb Hct RDW 15.5 H Plt Count 35 L Lymph % (Auto) [place] % (Auto) Lymph # Seg Neutrophils % Seg Neuts % (Manual) Lymphocytes % (Manual) Monocytes % (Manual) Nucleated RBC % Seg Neutrophils # Seg Neutrophils # Man Lymphocytes # (Manual) Monocytes # (Manual) PT INR D-Dimer Heparin Anti-Xa Level POC ABG pH ABG pH POC ABG pCO2 POC ABG pO2 ABG pO2 ABG HCO3 ABG O2 Saturation ABG Base Excess ABG Hemoglobin Oxyhemoglobin Sodium 132 L Potassium 5.5 H D Chloride 88.5 L Carbon Dioxide 18 L BUN 71 H Creatinine 8.1 H Glucose 205 H POC Glucose Lactic Acid 5.00 H* Calcium 4.1 L* D Ionized Calcium Phosphorus Magnesium 2.40 H Iron TIBC Ferritin Total Bilirubin 7.50 H Direct Bilirubin AST 1088 H ALT 159 H Alkaline Phosphatase 190 H Total Creatine Kinase 672244 H CK-MB (CK-2) Troponin T C-Reactive Protein Total Protein 4.7 L Albumin 1.8 L Triglycerides LDL Cholesterol Direct HDL Cholesterol Free T4 PTH Intact Urine WBC (Auto) Urine Creatinine Salicylates Acetaminophen Crossmatch 03/18/19 03/18/19 03/18/19 12:33 12:50 13:19 WBC RBC Hgb Hct RDW Plt Count Lymph % (Auto) [place] % (Auto) Lymph # Seg Neutrophils % Seg Neuts % (Manual) Lymphocytes % (Manual) Monocytes % (Manual) Nucleated RBC % Seg Neutrophils # Seg Neutrophils # Man Lymphocytes # (Manual) Monocytes # (Manual) PT INR D-Dimer Heparin Anti-Xa Level POC ABG pH 7.282 L ABG pH POC ABG pCO2 POC ABG pO2 67 L ABG pO2 ABG HCO3 ABG O2 Saturation ABG Base Excess ABG Hemoglobin Oxyhemoglobin Sodium Potassium Chloride Carbon Dioxide BUN Creatinine Glucose POC Glucose 129 H Lactic Acid 3.30 H* Calcium Ionized Calcium Phosphorus Magnesium Iron TIBC Ferritin Total Bilirubin Direct Bilirubin AST ALT Alkaline Phosphatase Total Creatine Kinase CK-MB (CK-2) Troponin T C-Reactive Protein Total Protein Albumin Triglycerides LDL Cholesterol Direct HDL Cholesterol Free T4 PTH Intact Urine WBC (Auto) Urine Creatinine Salicylates Acetaminophen Crossmatch 03/18/19 03/18/19 03/18/19 13:19 16:50 18:11 WBC RBC Hgb Hct RDW Plt Count Lymph % (Auto) [place] % (Auto) Lymph # Seg Neutrophils % Seg Neuts % (Manual) Lymphocytes % (Manual) Monocytes % (Manual) Nucleated RBC % Seg Neutrophils # Seg Neutrophils # Man Lymphocytes # (Manual) Monocytes # (Manual) PT INR D-Dimer Heparin Anti-Xa Level POC ABG pH ABG pH POC ABG pCO2 POC ABG pO2 59 L ABG pO2 ABG HCO3 ABG O2 Saturation ABG Base Excess ABG Hemoglobin Oxyhemoglobin Sodium Potassium Chloride Carbon Dioxide BUN Creatinine Glucose POC Glucose 151 H Lactic Acid Calcium 4.2 L* Ionized Calcium Phosphorus Magnesium Iron TIBC Ferritin Total Bilirubin Direct Bilirubin AST ALT Alkaline Phosphatase Total Creatine Kinase 223596 H CK-MB (CK-2) Troponin T C-Reactive Protein Total Protein Albumin Triglycerides LDL Cholesterol Direct HDL Cholesterol Free T4 PTH Intact Urine WBC (Auto) Urine Creatinine Salicylates Acetaminophen Crossmatch 03/18/19 03/18/19 03/19/19 18:20 23:39 01:42 WBC RBC Hgb Hct RDW Plt Count Lymph % (Auto) [place] % (Auto) Lymph # Seg Neutrophils % Seg Neuts % (Manual) Lymphocytes % (Manual) Monocytes % (Manual) Nucleated RBC % Seg Neutrophils # Seg Neutrophils # Man Lymphocytes # (Manual) Monocytes # (Manual) PT INR D-Dimer Heparin Anti-Xa Level POC ABG pH 7.345 L ABG pH 7.285 L POC ABG pCO2 POC ABG pO2 59 L ABG pO2 44.0 L ABG HCO3 ABG O2 Saturation 70.9 L ABG Base Excess -5.7 L ABG Hemoglobin 11.9 L Oxyhemoglobin 69.6 L Sodium Potassium Chloride Carbon Dioxide BUN Creatinine Glucose POC Glucose 152 H Lactic Acid Calcium Ionized Calcium Phosphorus Magnesium Iron TIBC Ferritin Total Bilirubin Direct Bilirubin AST ALT Alkaline Phosphatase Total Creatine Kinase CK-MB (CK-2) Troponin T C-Reactive Protein Total Protein Albumin Triglycerides LDL Cholesterol Direct HDL Cholesterol Free T4 PTH Intact Urine WBC (Auto) Urine Creatinine Salicylates Acetaminophen Crossmatch 03/19/19 03/19/19 03/19/19 04:00 04:00 05:35 WBC 36.5 H RBC Hgb Hct RDW 15.8 H Plt Count 35 L Lymph % (Auto) [place] % (Auto) Lymph # Seg Neutrophils % Seg Neuts % (Manual) Lymphocytes % (Manual) Monocytes % (Manual) Nucleated RBC % Seg Neutrophils # Seg Neutrophils # Man Lymphocytes # (Manual) Monocytes # (Manual) PT INR D-Dimer Heparin Anti-Xa Level POC ABG pH ABG pH 7.265 L POC ABG pCO2 POC ABG pO2 ABG pO2 35.4 L* ABG HCO3 ABG O2 Saturation 54.4 L ABG Base Excess -6.7 L ABG Hemoglobin 12.9 L Oxyhemoglobin 53.4 L Sodium 132 L Potassium 5.7 H Chloride 89.8 L Carbon Dioxide 19 L BUN 62 H Creatinine 6.4 H Glucose 151 H POC Glucose Lactic Acid Calcium 5.2 L* D Ionized Calcium Phosphorus Magnesium Iron TIBC Ferritin Total Bilirubin 7.80 H Direct Bilirubin AST 682 H ALT 130 H Alkaline Phosphatase 167 H Total Creatine Kinase CK-MB (CK-2) Troponin T C-Reactive Protein Total Protein 4.8 L Albumin 2.3 L Triglycerides LDL Cholesterol Direct HDL Cholesterol Free T4 PTH Intact Urine WBC (Auto) Urine Creatinine Salicylates Acetaminophen Crossmatch 03/19/19 03/19/19 03/19/19 05:49 09:16 09:50 WBC RBC Hgb Hct RDW Plt Count Lymph % (Auto) [place] % (Auto) Lymph # Seg Neutrophils % Seg Neuts % (Manual) Lymphocytes % (Manual) Monocytes % (Manual) Nucleated RBC % Seg Neutrophils # Seg Neutrophils # Man Lymphocytes # (Manual) Monocytes # (Manual) PT INR D-Dimer Heparin Anti-Xa Level POC ABG pH 7.222 L ABG pH POC ABG pCO2 56.6 H POC ABG pO2 ABG pO2 ABG HCO3 ABG O2 Saturation ABG Base Excess ABG Hemoglobin Oxyhemoglobin Sodium Potassium Chloride Carbon Dioxide BUN Creatinine Glucose POC Glucose 154 H Lactic Acid 2.70 H* Calcium Ionized Calcium Phosphorus Magnesium Iron TIBC Ferritin Total Bilirubin Direct Bilirubin AST ALT Alkaline Phosphatase Total Creatine Kinase CK-MB (CK-2) Troponin T C-Reactive Protein Total Protein Albumin Triglycerides LDL Cholesterol Direct HDL Cholesterol Free T4 PTH Intact Urine WBC (Auto) Urine Creatinine Salicylates Acetaminophen Crossmatch 03/19/19 03/19/19 03/19/19 09:50 11:28 17:58 WBC RBC Hgb Hct RDW Plt Count Lymph % (Auto) [place] % (Auto) Lymph # Seg Neutrophils % Seg Neuts % (Manual) Lymphocytes % (Manual) Monocytes % (Manual) Nucleated RBC % Seg Neutrophils # Seg Neutrophils # Man Lymphocytes # (Manual) Monocytes # (Manual) PT INR D-Dimer Heparin Anti-Xa Level POC ABG pH 7.250 L ABG pH POC ABG pCO2 52.6 H POC ABG pO2 ABG pO2 ABG HCO3 ABG O2 Saturation ABG Base Excess ABG Hemoglobin Oxyhemoglobin Sodium Potassium Chloride Carbon Dioxide BUN Creatinine Glucose POC Glucose 160 H Lactic Acid Calcium Ionized Calcium Phosphorus Magnesium Iron TIBC Ferritin Total Bilirubin Direct Bilirubin AST ALT Alkaline Phosphatase Total Creatine Kinase 78792 H CK-MB (CK-2) Troponin T C-Reactive Protein Total Protein Albumin Triglycerides LDL Cholesterol Direct HDL Cholesterol Free T4 PTH Intact Urine WBC (Auto) Urine Creatinine Salicylates Acetaminophen Crossmatch 03/19/19 03/19/19 03/20/19 19:48 21:03 02:16 WBC RBC Hgb Hct RDW Plt Count Lymph % (Auto) [place] % (Auto) Lymph # Seg Neutrophils % Seg Neuts % (Manual) Lymphocytes % (Manual) Monocytes % (Manual) Nucleated RBC % Seg Neutrophils # Seg Neutrophils # Man Lymphocytes # (Manual) Monocytes # (Manual) PT INR D-Dimer Heparin Anti-Xa Level POC ABG pH 7.279 L ABG pH POC ABG pCO2 50.3 H POC ABG pO2 129 H ABG pO2 ABG HCO3 ABG O2 Saturation ABG Base Excess ABG Hemoglobin Oxyhemoglobin Sodium Potassium Chloride Carbon Dioxide BUN Creatinine Glucose POC Glucose 119 H 119 H Lactic Acid Calcium Ionized Calcium Phosphorus Magnesium Iron TIBC Ferritin Total Bilirubin Direct Bilirubin AST ALT Alkaline Phosphatase Total Creatine Kinase CK-MB (CK-2) Troponin T C-Reactive Protein Total Protein Albumin Triglycerides LDL Cholesterol Direct HDL Cholesterol Free T4 PTH Intact Urine WBC (Auto) Urine Creatinine Salicylates Acetaminophen Crossmatch 03/20/19 03/20/19 03/20/19 04:23 05:05 09:30 WBC 36.3 H RBC Hgb Hct RDW 15.5 H Plt Count 29 L Lymph % (Auto) [place] % (Auto) Lymph # Seg Neutrophils % Seg Neuts % (Manual) Lymphocytes % (Manual) Monocytes % (Manual) Nucleated RBC % Seg Neutrophils # Seg Neutrophils # Man Lymphocytes # (Manual) Monocytes # (Manual) PT INR D-Dimer Heparin Anti-Xa Level POC ABG pH ABG pH POC ABG pCO2 POC ABG pO2 280 H ABG pO2 ABG HCO3 ABG O2 Saturation ABG Base Excess ABG Hemoglobin Oxyhemoglobin Sodium Potassium Chloride Carbon Dioxide BUN Creatinine Glucose POC Glucose 115 H Lactic Acid Calcium Ionized Calcium Phosphorus Magnesium Iron TIBC Ferritin Total Bilirubin Direct Bilirubin AST ALT Alkaline Phosphatase Total Creatine Kinase CK-MB (CK-2) Troponin T C-Reactive Protein Total Protein Albumin Triglycerides LDL Cholesterol Direct HDL Cholesterol Free T4 PTH Intact Urine WBC (Auto) Urine Creatinine Salicylates Acetaminophen Crossmatch 03/20/19 03/20/19 03/20/19 09:30 09:30 11:34 WBC RBC Hgb Hct RDW Plt Count Lymph % (Auto) [place] % (Auto) Lymph # Seg Neutrophils % Seg Neuts % (Manual) Lymphocytes % (Manual) Monocytes % (Manual) Nucleated RBC % Seg Neutrophils # Seg Neutrophils # Man Lymphocytes # (Manual) Monocytes # (Manual) PT INR D-Dimer Heparin Anti-Xa Level POC ABG pH ABG pH POC ABG pCO2 POC ABG pO2 ABG pO2 ABG HCO3 ABG O2 Saturation ABG Base Excess ABG Hemoglobin Oxyhemoglobin Sodium 131 L Potassium Chloride 92.3 L Carbon Dioxide 20 L BUN 68 H Creatinine 6.1 H Glucose 164 H POC Glucose 141 H Lactic Acid Calcium 5.3 L* Ionized Calcium Phosphorus Magnesium Iron TIBC Ferritin Total Bilirubin 9.50 H Direct Bilirubin AST 381 H ALT 116 H Alkaline Phosphatase 255 H Total Creatine Kinase 61905 H CK-MB (CK-2) Troponin T C-Reactive Protein Total Protein 5.1 L Albumin 2.3 L Triglycerides LDL Cholesterol Direct HDL Cholesterol Free T4 PTH Intact Urine WBC (Auto) Urine Creatinine Salicylates Acetaminophen Crossmatch 03/20/19 03/20/19 03/20/19 14:41 14:45 18:50 WBC RBC Hgb Hct RDW Plt Count Lymph % (Auto) [place] % (Auto) Lymph # Seg Neutrophils % Seg Neuts % (Manual) Lymphocytes % (Manual) Monocytes % (Manual) Nucleated RBC % Seg Neutrophils # Seg Neutrophils # Man Lymphocytes # (Manual) Monocytes # (Manual) PT INR D-Dimer Heparin Anti-Xa Level POC ABG pH ABG pH POC ABG pCO2 POC ABG pO2 ABG pO2 ABG HCO3 ABG O2 Saturation ABG Base Excess ABG Hemoglobin Oxyhemoglobin Sodium Potassium Chloride Carbon Dioxide BUN Creatinine Glucose POC Glucose 117 H Lactic Acid 2.90 H* Calcium Ionized Calcium Phosphorus Magnesium Iron TIBC Ferritin Total Bilirubin Direct Bilirubin AST ALT Alkaline Phosphatase Total Creatine Kinase CK-MB (CK-2) Troponin T C-Reactive Protein 13.30 H Total Protein Albumin Triglycerides LDL Cholesterol Direct HDL Cholesterol Free T4 PTH Intact Urine WBC (Auto) Urine Creatinine Salicylates Acetaminophen Crossmatch 03/20/19 03/21/19 03/21/19 21:55 04:26 04:26 WBC 37.8 H RBC Hgb Hct RDW 15.4 H Plt Count 36 L Lymph % (Auto) [place] % (Auto) Lymph # Seg Neutrophils % Seg Neuts % (Manual) 93.0 H Lymphocytes % (Manual) 3.0 L Monocytes % (Manual) Nucleated RBC % 1.0 H Seg Neutrophils # 34.6 H Seg Neutrophils # Man 35.2 H Lymphocytes # (Manual) 1.1 L Monocytes # (Manual) PT INR D-Dimer Heparin Anti-Xa Level POC ABG pH ABG pH POC ABG pCO2 POC ABG pO2 ABG pO2 ABG HCO3 ABG O2 Saturation ABG Base Excess ABG Hemoglobin Oxyhemoglobin Sodium 131 L Potassium Chloride 90.7 L Carbon Dioxide 21 L BUN 69 H Creatinine 5.7 H Glucose 170 H POC Glucose 128 H Lactic Acid Calcium 6.1 L D Ionized Calcium Phosphorus Magnesium Iron TIBC Ferritin Total Bilirubin 9.50 H Direct Bilirubin AST 308 H ALT 124 H Alkaline Phosphatase 327 H Total Creatine Kinase 29687 H CK-MB (CK-2) Troponin T C-Reactive Protein Total Protein 5.7 L Albumin 2.6 L Triglycerides LDL Cholesterol Direct HDL Cholesterol Free T4 PTH Intact Urine WBC (Auto) Urine Creatinine Salicylates Acetaminophen Crossmatch 03/21/19 03/21/19 03/21/19 05:17 05:39 08:29 WBC RBC Hgb Hct RDW Plt Count Lymph % (Auto) [place] % (Auto) Lymph # Seg Neutrophils % Seg Neuts % (Manual) Lymphocytes % (Manual) Monocytes % (Manual) Nucleated RBC % Seg Neutrophils # Seg Neutrophils # Man Lymphocytes # (Manual) Monocytes # (Manual) PT INR D-Dimer Heparin Anti-Xa Level POC ABG pH ABG pH POC ABG pCO2 POC ABG pO2 209 H ABG pO2 ABG HCO3 ABG O2 Saturation ABG Base Excess ABG Hemoglobin Oxyhemoglobin Sodium Potassium Chloride Carbon Dioxide BUN Creatinine Glucose POC Glucose 145 H Lactic Acid Calcium Ionized Calcium Phosphorus Magnesium Iron TIBC Ferritin Total Bilirubin Direct Bilirubin AST ALT Alkaline Phosphatase Total Creatine Kinase 80293 H CK-MB (CK-2) Troponin T C-Reactive Protein Total Protein Albumin Triglycerides LDL Cholesterol Direct HDL Cholesterol Free T4 PTH Intact Urine WBC (Auto) Urine Creatinine Salicylates Acetaminophen Crossmatch 03/21/19 03/21/19 03/21/19 08:29 11:43 12:00 WBC RBC Hgb Hct RDW Plt Count Lymph % (Auto) [place] % (Auto) Lymph # Seg Neutrophils % Seg Neuts % (Manual) Lymphocytes % (Manual) Monocytes % (Manual) Nucleated RBC % Seg Neutrophils # Seg Neutrophils # Man Lymphocytes # (Manual) Monocytes # (Manual) PT INR D-Dimer Heparin Anti-Xa Level POC ABG pH ABG pH POC ABG pCO2 POC ABG pO2 ABG pO2 ABG HCO3 ABG O2 Saturation ABG Base Excess ABG Hemoglobin Oxyhemoglobin Sodium Potassium Chloride Carbon Dioxide BUN Creatinine Glucose POC Glucose 123 H Lactic Acid 2.60 H* 2.20 H* Calcium Ionized Calcium Phosphorus Magnesium Iron TIBC Ferritin Total Bilirubin Direct Bilirubin AST ALT Alkaline Phosphatase Total Creatine Kinase CK-MB (CK-2) Troponin T C-Reactive Protein Total Protein Albumin Triglycerides LDL Cholesterol Direct HDL Cholesterol Free T4 PTH Intact Urine WBC (Auto) Urine Creatinine Salicylates Acetaminophen Crossmatch 03/21/19 03/21/19 03/21/19 14:11 18:28 19:32 WBC RBC Hgb Hct RDW Plt Count Lymph % (Auto) [place] % (Auto) Lymph # Seg Neutrophils % Seg Neuts % (Manual) Lymphocytes % (Manual) Monocytes % (Manual) Nucleated RBC % Seg Neutrophils # Seg Neutrophils # Man Lymphocytes # (Manual) Monocytes # (Manual) PT INR D-Dimer Heparin Anti-Xa Level POC ABG pH 7.293 L ABG pH POC ABG pCO2 POC ABG pO2 ABG pO2 ABG HCO3 ABG O2 Saturation ABG Base Excess ABG Hemoglobin Oxyhemoglobin Sodium Potassium Chloride Carbon Dioxide BUN Creatinine Glucose POC Glucose 153 H Lactic Acid 2.10 H* Calcium Ionized Calcium Phosphorus Magnesium Iron TIBC Ferritin Total Bilirubin Direct Bilirubin AST ALT Alkaline Phosphatase Total Creatine Kinase CK-MB (CK-2) Troponin T C-Reactive Protein Total Protein Albumin Triglycerides LDL Cholesterol Direct HDL Cholesterol Free T4 PTH Intact Urine WBC (Auto) Urine Creatinine Salicylates Acetaminophen Crossmatch 03/21/19 03/22/19 03/22/19 23:38 05:08 05:51 WBC RBC Hgb Hct RDW Plt Count Lymph % (Auto) [place] % (Auto) Lymph # Seg Neutrophils % Seg Neuts % (Manual) Lymphocytes % (Manual) Monocytes % (Manual) Nucleated RBC % Seg Neutrophils # Seg Neutrophils # Man Lymphocytes # (Manual) Monocytes # (Manual) PT INR D-Dimer Heparin Anti-Xa Level POC ABG pH 7.283 L ABG pH POC ABG pCO2 POC ABG pO2 53 L ABG pO2 ABG HCO3 ABG O2 Saturation ABG Base Excess ABG Hemoglobin Oxyhemoglobin Sodium Potassium Chloride Carbon Dioxide BUN Creatinine Glucose POC Glucose 149 H 131 H Lactic Acid Calcium Ionized Calcium Phosphorus Magnesium Iron TIBC Ferritin Total Bilirubin Direct Bilirubin AST ALT Alkaline Phosphatase Total Creatine Kinase CK-MB (CK-2) Troponin T C-Reactive Protein Total Protein Albumin Triglycerides LDL Cholesterol Direct HDL Cholesterol Free T4 PTH Intact Urine WBC (Auto) Urine Creatinine Salicylates Acetaminophen Crossmatch 03/22/19 03/22/19 03/22/19 08:00 08:00 18:19 WBC 36.7 H RBC Hgb 11.0 L Hct 33.5 L RDW 15.5 H Plt Count 43 L Lymph % (Auto) [place] % (Auto) Lymph # Seg Neutrophils % Seg Neuts % (Manual) 87.0 H Lymphocytes % (Manual) 7.0 L Monocytes % (Manual) Nucleated RBC % Seg Neutrophils # Seg Neutrophils # Man 31.9 H Lymphocytes # (Manual) Monocytes # (Manual) PT INR D-Dimer Heparin Anti-Xa Level POC ABG pH ABG pH POC ABG pCO2 46.4 H POC ABG pO2 108 H ABG pO2 ABG HCO3 ABG O2 Saturation ABG Base Excess ABG Hemoglobin Oxyhemoglobin Sodium 132 L Potassium 5.6 H Chloride 89.6 L Carbon Dioxide 20 L BUN 101 H Creatinine 7.4 H Glucose 124 H POC Glucose Lactic Acid Calcium 5.2 L* Ionized Calcium Phosphorus Magnesium Iron TIBC Ferritin Total Bilirubin 2.80 H Direct Bilirubin AST 119 H ALT 86 H Alkaline Phosphatase 245 H Total Creatine Kinase CK-MB (CK-2) Troponin T C-Reactive Protein Total Protein 5.6 L Albumin 2.5 L Triglycerides LDL Cholesterol Direct HDL Cholesterol Free T4 PTH Intact Urine WBC (Auto) Urine Creatinine Salicylates Acetaminophen Crossmatch 03/22/19 03/23/19 03/23/19 20:37 04:49 05:28 WBC 35.9 H RBC Hgb 10.8 L Hct 33.2 L RDW 15.5 H Plt Count 49 L Lymph % (Auto) [place] % (Auto) Lymph # Seg Neutrophils % Seg Neuts % (Manual) 81.0 H Lymphocytes % (Manual) 3.5 L Monocytes % (Manual) Nucleated RBC % Seg Neutrophils # Seg Neutrophils # Man 29.1 H Lymphocytes # (Manual) Monocytes # (Manual) 1.4 H PT INR D-Dimer Heparin Anti-Xa Level POC ABG pH 7.296 L ABG pH POC ABG pCO2 46.2 H POC ABG pO2 ABG pO2 ABG HCO3 ABG O2 Saturation ABG Base Excess ABG Hemoglobin Oxyhemoglobin Sodium 129 L Potassium 5.2 H Chloride 91.1 L Carbon Dioxide BUN 91 H Creatinine 6.6 H Glucose 190 H POC Glucose Lactic Acid Calcium 5.3 L* Ionized Calcium Phosphorus Magnesium Iron TIBC Ferritin Total Bilirubin 1.80 H Direct Bilirubin AST 80 H ALT 62 H Alkaline Phosphatase 209 H Total Creatine Kinase 9758 H CK-MB (CK-2) Troponin T C-Reactive Protein Total Protein 5.2 L Albumin 2.2 L Triglycerides LDL Cholesterol Direct HDL Cholesterol Free T4 PTH Intact Urine WBC (Auto) Urine Creatinine Salicylates Acetaminophen Crossmatch 03/23/19 03/23/19 03/23/19 05:28 05:31 11:33 WBC 29.7 H RBC 3.59 L Hgb 10.1 L Hct 31.1 L RDW 15.4 H Plt Count 47 L Lymph % (Auto) [place] % (Auto) Lymph # Seg Neutrophils % Seg Neuts % (Manual) 89.0 H Lymphocytes % (Manual) 6.0 L Monocytes % (Manual) Nucleated RBC % 1.0 H Seg Neutrophils # Seg Neutrophils # Man 26.4 H Lymphocytes # (Manual) Monocytes # (Manual) PT INR D-Dimer Heparin Anti-Xa Level POC ABG pH ABG pH POC ABG pCO2 POC ABG pO2 ABG pO2 ABG HCO3 ABG O2 Saturation ABG Base Excess ABG Hemoglobin Oxyhemoglobin Sodium Potassium Chloride Carbon Dioxide BUN Creatinine Glucose POC Glucose 122 H 113 H Lactic Acid Calcium Ionized Calcium Phosphorus Magnesium Iron TIBC Ferritin Total Bilirubin Direct Bilirubin AST ALT Alkaline Phosphatase Total Creatine Kinase CK-MB (CK-2) Troponin T C-Reactive Protein Total Protein Albumin Triglycerides LDL Cholesterol Direct HDL Cholesterol Free T4 PTH Intact Urine WBC (Auto) Urine Creatinine Salicylates Acetaminophen Crossmatch 03/23/19 03/24/19 03/24/19 17:47 00:00 04:50 WBC 35.0 H RBC Hgb 10.4 L Hct 32.4 L RDW Plt Count 60 L Lymph % (Auto) [place] % (Auto) Lymph # Seg Neutrophils % Seg Neuts % (Manual) 93.0 H Lymphocytes % (Manual) 5.0 L Monocytes % (Manual) Nucleated RBC % 7.0 H Seg Neutrophils # Seg Neutrophils # Man 32.6 H Lymphocytes # (Manual) Monocytes # (Manual) PT INR D-Dimer Heparin Anti-Xa Level POC ABG pH ABG pH POC ABG pCO2 POC ABG pO2 ABG pO2 ABG HCO3 ABG O2 Saturation ABG Base Excess ABG Hemoglobin Oxyhemoglobin Sodium Potassium Chloride Carbon Dioxide BUN Creatinine Glucose POC Glucose 111 H 108 H Lactic Acid Calcium Ionized Calcium Phosphorus Magnesium Iron TIBC Ferritin Total Bilirubin Direct Bilirubin AST ALT Alkaline Phosphatase Total Creatine Kinase CK-MB (CK-2) Troponin T C-Reactive Protein Total Protein Albumin Triglycerides LDL Cholesterol Direct HDL Cholesterol Free T4 PTH Intact Urine WBC (Auto) Urine Creatinine Salicylates Acetaminophen Crossmatch 03/24/19 03/24/19 03/24/19 04:50 05:06 12:55 WBC RBC Hgb Hct RDW Plt Count Lymph % (Auto) [place] % (Auto) Lymph # Seg Neutrophils % Seg Neuts % (Manual) Lymphocytes % (Manual) Monocytes % (Manual) Nucleated RBC % Seg Neutrophils # Seg Neutrophils # Man Lymphocytes # (Manual) Monocytes # (Manual) PT INR D-Dimer Heparin Anti-Xa Level POC ABG pH ABG pH POC ABG pCO2 POC ABG pO2 ABG pO2 ABG HCO3 ABG O2 Saturation ABG Base Excess ABG Hemoglobin Oxyhemoglobin Sodium 134 L Potassium 5.1 H Chloride 95.3 L Carbon Dioxide 21 L BUN 85 H Creatinine 6.4 H Glucose 109 H POC Glucose 112 H 110 H Lactic Acid Calcium 5.8 L* Ionized Calcium Phosphorus Magnesium Iron TIBC Ferritin Total Bilirubin Direct Bilirubin AST ALT Alkaline Phosphatase Total Creatine Kinase 5747 H CK-MB (CK-2) Troponin T C-Reactive Protein Total Protein Albumin Triglycerides LDL Cholesterol Direct HDL Cholesterol Free T4 PTH Intact Urine WBC (Auto) Urine Creatinine Salicylates Acetaminophen Crossmatch 03/24/19 03/25/19 03/25/19 23:29 05:00 05:00 WBC RBC Hgb Hct RDW Plt Count Lymph % (Auto) [place] % (Auto) Lymph # Seg Neutrophils % Seg Neuts % (Manual) Lymphocytes % (Manual) Monocytes % (Manual) Nucleated RBC % Seg Neutrophils # Seg Neutrophils # Man Lymphocytes # (Manual) Monocytes # (Manual) PT INR D-Dimer Heparin Anti-Xa Level POC ABG pH ABG pH POC ABG pCO2 POC ABG pO2 ABG pO2 ABG HCO3 ABG O2 Saturation ABG Base Excess ABG Hemoglobin Oxyhemoglobin Sodium 133 L Potassium Chloride 94.0 L Carbon Dioxide 21 L BUN 81 H Creatinine 6.4 H Glucose POC Glucose 109 H Lactic Acid Calcium 5.5 L* Ionized Calcium Phosphorus Magnesium Iron TIBC Ferritin Total Bilirubin Direct Bilirubin AST 80 H ALT Alkaline Phosphatase 202 H Total Creatine Kinase 3589 H CK-MB (CK-2) Troponin T C-Reactive Protein Total Protein 5.3 L Albumin 2.4 L Triglycerides LDL Cholesterol Direct HDL Cholesterol Free T4 PTH Intact 329.9 H Urine WBC (Auto) Urine Creatinine Salicylates Acetaminophen Crossmatch 03/25/19 03/25/19 03/26/19 05:00 06:30 04:30 WBC 23.3 H RBC 3.61 L Hgb 10.2 L Hct 31.2 L RDW Plt Count 57 L Lymph % (Auto) [place] % (Auto) Lymph # Seg Neutrophils % Seg Neuts % (Manual) 92.0 H Lymphocytes % (Manual) 6.0 L Monocytes % (Manual) Nucleated RBC % Seg Neutrophils # Seg Neutrophils # Man 21.4 H Lymphocytes # (Manual) Monocytes # (Manual) PT INR D-Dimer Heparin Anti-Xa Level POC ABG pH ABG pH 7.326 L POC ABG pCO2 POC ABG pO2 ABG pO2 109.5 H 137.4 H ABG HCO3 18.8 L 18.6 L ABG O2 Saturation ABG Base Excess -4.4 L -6.8 L ABG Hemoglobin 10.1 L 9.9 L Oxyhemoglobin Sodium Potassium Chloride Carbon Dioxide BUN Creatinine Glucose POC Glucose Lactic Acid Calcium Ionized Calcium Phosphorus Magnesium Iron TIBC Ferritin Total Bilirubin Direct Bilirubin AST ALT Alkaline Phosphatase Total Creatine Kinase CK-MB (CK-2) Troponin T C-Reactive Protein Total Protein Albumin Triglycerides LDL Cholesterol Direct HDL Cholesterol Free T4 PTH Intact Urine WBC (Auto) Urine Creatinine Salicylates Acetaminophen Crossmatch 03/26/19 03/26/19 03/26/19 23:22 Unknown Unknown WBC 19.5 H RBC 3.44 L Hgb 9.8 L Hct 29.9 L RDW Plt Count 85 L Lymph % (Auto) [place] % (Auto) Lymph # Seg Neutrophils % Seg Neuts % (Manual) 95.0 H Lymphocytes % (Manual) 3.0 L Monocytes % (Manual) Nucleated RBC % Seg Neutrophils # Seg Neutrophils # Man 18.5 H Lymphocytes # (Manual) 0.6 L Monocytes # (Manual) PT INR D-Dimer Heparin Anti-Xa Level POC ABG pH ABG pH POC ABG pCO2 POC ABG pO2 ABG pO2 ABG HCO3 ABG O2 Saturation ABG Base Excess ABG Hemoglobin Oxyhemoglobin Sodium 135 L Potassium 5.2 H D Chloride 92.2 L Carbon Dioxide 18 L BUN 109 H Creatinine 8.5 H Glucose 117 H POC Glucose 69 L Lactic Acid Calcium 4.5 L* D Ionized Calcium Phosphorus Magnesium Iron TIBC Ferritin Total Bilirubin Direct Bilirubin AST ALT Alkaline Phosphatase Total Creatine Kinase 4527 H CK-MB (CK-2) Troponin T C-Reactive Protein Total Protein Albumin Triglycerides LDL Cholesterol Direct HDL Cholesterol Free T4 PTH Intact Urine WBC (Auto) Urine Creatinine Salicylates Acetaminophen Crossmatch 03/27/19 03/27/19 03/27/19 04:30 04:30 09:00 WBC 19.2 H RBC 3.42 L Hgb 9.9 L Hct 30.0 L RDW Plt Count 84 L Lymph % (Auto) [place] % (Auto) Lymph # Seg Neutrophils % Seg Neuts % (Manual) Lymphocytes % (Manual) Monocytes % (Manual) Nucleated RBC % Seg Neutrophils # Seg Neutrophils # Man Lymphocytes # (Manual) Monocytes # (Manual) PT INR D-Dimer Heparin Anti-Xa Level POC ABG pH ABG pH POC ABG pCO2 POC ABG pO2 ABG pO2 ABG HCO3 ABG O2 Saturation ABG Base Excess ABG Hemoglobin Oxyhemoglobin Sodium 135 L Potassium Chloride 93.5 L Carbon Dioxide BUN 84 H Creatinine 7.1 H Glucose POC Glucose Lactic Acid Calcium 5.0 L* Ionized Calcium Phosphorus Magnesium Iron TIBC Ferritin Total Bilirubin Direct Bilirubin AST 78 H ALT Alkaline Phosphatase 135 H Total Creatine Kinase 4677 H CK-MB (CK-2) Troponin T C-Reactive Protein Total Protein 4.8 L Albumin 2.3 L Triglycerides 409 H LDL Cholesterol Direct HDL Cholesterol Free T4 PTH Intact Urine WBC (Auto) Urine Creatinine Salicylates Acetaminophen Crossmatch 03/27/19 03/27/19 03/27/19 12:37 14:15 14:15 WBC RBC Hgb 9.7 L Hct 29.5 L RDW Plt Count 87 L Lymph % (Auto) [place] % (Auto) Lymph # Seg Neutrophils % Seg Neuts % (Manual) Lymphocytes % (Manual) Monocytes % (Manual) Nucleated RBC % Seg Neutrophils # Seg Neutrophils # Man Lymphocytes # (Manual) Monocytes # (Manual) PT 15.9 H INR 1.30 H D-Dimer Heparin Anti-Xa Level POC ABG pH ABG pH POC ABG pCO2 POC ABG pO2 ABG pO2 ABG HCO3 ABG O2 Saturation ABG Base Excess ABG Hemoglobin Oxyhemoglobin Sodium Potassium Chloride Carbon Dioxide BUN Creatinine Glucose POC Glucose 129 H Lactic Acid Calcium Ionized Calcium Phosphorus Magnesium Iron TIBC Ferritin Total Bilirubin Direct Bilirubin AST ALT Alkaline Phosphatase Total Creatine Kinase CK-MB (CK-2) Troponin T C-Reactive Protein Total Protein Albumin Triglycerides LDL Cholesterol Direct HDL Cholesterol Free T4 PTH Intact Urine WBC (Auto) Urine Creatinine Salicylates Acetaminophen Crossmatch 03/27/19 03/27/19 03/27/19 18:00 19:22 19:23 WBC RBC Hgb Hct RDW Plt Count Lymph % (Auto) [place] % (Auto) Lymph # Seg Neutrophils % Seg Neuts % (Manual) Lymphocytes % (Manual) Monocytes % (Manual) Nucleated RBC % Seg Neutrophils # Seg Neutrophils # Man Lymphocytes # (Manual) Monocytes # (Manual) PT INR D-Dimer Heparin Anti-Xa Level < 0.10 L POC ABG pH ABG pH POC ABG pCO2 POC ABG pO2 ABG pO2 ABG HCO3 ABG O2 Saturation ABG Base Excess ABG Hemoglobin Oxyhemoglobin Sodium Potassium Chloride Carbon Dioxide BUN Creatinine Glucose POC Glucose 121 H Lactic Acid Calcium Ionized Calcium Phosphorus Magnesium Iron TIBC Ferritin Total Bilirubin Direct Bilirubin AST ALT Alkaline Phosphatase Total Creatine Kinase 4517 H CK-MB (CK-2) Troponin T C-Reactive Protein Total Protein Albumin Triglycerides LDL Cholesterol Direct HDL Cholesterol Free T4 PTH Intact Urine WBC (Auto) Urine Creatinine Salicylates Acetaminophen Crossmatch 03/27/19 03/27/19 03/28/19 22:10 23:52 03:49 WBC RBC Hgb Hct RDW Plt Count Lymph % (Auto) [place] % (Auto) Lymph # Seg Neutrophils % Seg Neuts % (Manual) Lymphocytes % (Manual) Monocytes % (Manual) Nucleated RBC % Seg Neutrophils # Seg Neutrophils # Man Lymphocytes # (Manual) Monocytes # (Manual) PT INR D-Dimer Heparin Anti-Xa Level POC ABG pH 7.338 L ABG pH POC ABG pCO2 33.1 L POC ABG pO2 ABG pO2 ABG HCO3 ABG O2 Saturation ABG Base Excess ABG Hemoglobin Oxyhemoglobin Sodium Potassium Chloride Carbon Dioxide BUN Creatinine Glucose POC Glucose 113 H 117 H Lactic Acid Calcium Ionized Calcium Phosphorus Magnesium Iron TIBC Ferritin Total Bilirubin Direct Bilirubin AST ALT Alkaline Phosphatase Total Creatine Kinase CK-MB (CK-2) Troponin T C-Reactive Protein Total Protein Albumin Triglycerides LDL Cholesterol Direct HDL Cholesterol Free T4 PTH Intact Urine WBC (Auto) Urine Creatinine Salicylates Acetaminophen Crossmatch 03/28/19 03/28/19 03/28/19 05:13 05:13 06:18 WBC RBC Hgb Hct RDW Plt Count Lymph % (Auto) [place] % (Auto) Lymph # Seg Neutrophils % Seg Neuts % (Manual) Lymphocytes % (Manual) Monocytes % (Manual) Nucleated RBC % Seg Neutrophils # Seg Neutrophils # Man Lymphocytes # (Manual) Monocytes # (Manual) PT INR D-Dimer Heparin Anti-Xa Level 0.23 L POC ABG pH ABG pH POC ABG pCO2 POC ABG pO2 ABG pO2 ABG HCO3 ABG O2 Saturation ABG Base Excess ABG Hemoglobin Oxyhemoglobin Sodium 135 L Potassium 5.5 H D Chloride 95.1 L Carbon Dioxide 16 L D BUN 129 H Creatinine 9.3 H Glucose 158 H POC Glucose 202 H Lactic Acid Calcium 4.0 L* D Ionized Calcium Phosphorus 12.40 H Magnesium Iron TIBC Ferritin Total Bilirubin Direct Bilirubin AST ALT Alkaline Phosphatase Total Creatine Kinase 4266 H CK-MB (CK-2) Troponin T C-Reactive Protein Total Protein Albumin Triglycerides LDL Cholesterol Direct HDL Cholesterol Free T4 PTH Intact Urine WBC (Auto) Urine Creatinine Salicylates Acetaminophen Crossmatch 03/28/19 03/28/19 03/28/19 08:25 10:00 12:00 WBC RBC Hgb 4.9 L* D Hct 15.4 L* D RDW Plt Count Lymph % (Auto) [place] % (Auto) Lymph # Seg Neutrophils % Seg Neuts % (Manual) Lymphocytes % (Manual) Monocytes % (Manual) Nucleated RBC % Seg Neutrophils # Seg Neutrophils # Man Lymphocytes # (Manual) Monocytes # (Manual) PT 17.9 H INR 1.52 H D-Dimer 4845.98 H Heparin Anti-Xa Level POC ABG pH ABG pH POC ABG pCO2 POC ABG pO2 ABG pO2 ABG HCO3 ABG O2 Saturation ABG Base Excess ABG Hemoglobin Oxyhemoglobin Sodium Potassium Chloride Carbon Dioxide BUN Creatinine Glucose POC Glucose Lactic Acid Calcium Ionized Calcium Phosphorus Magnesium Iron TIBC Ferritin Total Bilirubin Direct Bilirubin AST ALT Alkaline Phosphatase Total Creatine Kinase CK-MB (CK-2) Troponin T C-Reactive Protein Total Protein Albumin Triglycerides LDL Cholesterol Direct HDL Cholesterol Free T4 PTH Intact Urine WBC (Auto) Urine Creatinine Salicylates Acetaminophen Crossmatch See Detail 03/28/19 03/28/19 03/28/19 12:28 14:10 17:43 WBC RBC Hgb 5.9 L* Hct 18.3 L* RDW Plt Count Lymph % (Auto) [place] % (Auto) Lymph # Seg Neutrophils % Seg Neuts % (Manual) Lymphocytes % (Manual) Monocytes % (Manual) Nucleated RBC % Seg Neutrophils # Seg Neutrophils # Man Lymphocytes # (Manual) Monocytes # (Manual) PT INR D-Dimer Heparin Anti-Xa Level POC ABG pH ABG pH POC ABG pCO2 POC ABG pO2 ABG pO2 ABG HCO3 ABG O2 Saturation ABG Base Excess ABG Hemoglobin Oxyhemoglobin Sodium Potassium Chloride Carbon Dioxide BUN Creatinine Glucose POC Glucose 153 H 159 H Lactic Acid Calcium Ionized Calcium Phosphorus Magnesium Iron TIBC Ferritin Total Bilirubin Direct Bilirubin AST ALT Alkaline Phosphatase Total Creatine Kinase CK-MB (CK-2) Troponin T C-Reactive Protein Total Protein Albumin Triglycerides LDL Cholesterol Direct HDL Cholesterol Free T4 PTH Intact Urine WBC (Auto) Urine Creatinine Salicylates Acetaminophen Crossmatch 03/28/19 03/28/19 03/28/19 18:10 Unknown 23:59 WBC 24.8 H RBC 3.42 L Hgb 10.2 L D Hct 31.1 L D RDW 15.4 H Plt Count 54 L Lymph % (Auto) [place] % (Auto) Lymph # Seg Neutrophils % Seg Neuts % (Manual) 91.0 H Lymphocytes % (Manual) 8.0 L Monocytes % (Manual) Nucleated RBC % Seg Neutrophils # Seg Neutrophils # Man 22.6 H Lymphocytes # (Manual) Monocytes # (Manual) PT INR D-Dimer Heparin Anti-Xa Level POC ABG pH ABG pH POC ABG pCO2 POC ABG pO2 ABG pO2 ABG HCO3 ABG O2 Saturation ABG Base Excess ABG Hemoglobin Oxyhemoglobin Sodium Potassium 5.7 H Chloride Carbon Dioxide BUN Creatinine Glucose POC Glucose 107 H Lactic Acid Calcium Ionized Calcium Phosphorus Magnesium Iron TIBC Ferritin Total Bilirubin Direct Bilirubin AST ALT Alkaline Phosphatase Total Creatine Kinase CK-MB (CK-2) Troponin T C-Reactive Protein Total Protein Albumin Triglycerides LDL Cholesterol Direct HDL Cholesterol Free T4 PTH Intact Urine WBC (Auto) Urine Creatinine Salicylates Acetaminophen Crossmatch 03/29/19 03/29/19 03/29/19 04:29 05:46 06:22 WBC RBC Hgb 8.6 L Hct 25.7 L RDW Plt Count 93 L Lymph % (Auto) [place] % (Auto) Lymph # Seg Neutrophils % Seg Neuts % (Manual) Lymphocytes % (Manual) Monocytes % (Manual) Nucleated RBC % Seg Neutrophils # Seg Neutrophils # Man Lymphocytes # (Manual) Monocytes # (Manual) PT INR D-Dimer Heparin Anti-Xa Level POC ABG pH ABG pH POC ABG pCO2 32.2 L POC ABG pO2 ABG pO2 ABG HCO3 ABG O2 Saturation ABG Base Excess ABG Hemoglobin Oxyhemoglobin Sodium Potassium Chloride Carbon Dioxide BUN Creatinine Glucose POC Glucose 113 H Lactic Acid Calcium Ionized Calcium Phosphorus Magnesium Iron TIBC Ferritin Total Bilirubin Direct Bilirubin AST ALT Alkaline Phosphatase Total Creatine Kinase CK-MB (CK-2) Troponin T C-Reactive Protein Total Protein Albumin Triglycerides LDL Cholesterol Direct HDL Cholesterol Free T4 PTH Intact Urine WBC (Auto) Urine Creatinine Salicylates Acetaminophen Crossmatch 03/29/19 03/29/19 03/29/19 06:22 06:22 06:22 WBC 23.2 H RBC 2.91 L Hgb 8.6 L Hct 25.8 L RDW Plt Count 91 L Lymph % (Auto) [place] % (Auto) Lymph # Seg Neutrophils % Seg Neuts % (Manual) Lymphocytes % (Manual) Monocytes % (Manual) Nucleated RBC % Seg Neutrophils # Seg Neutrophils # Man Lymphocytes # (Manual) Monocytes # (Manual) PT INR D-Dimer Heparin Anti-Xa Level POC ABG pH ABG pH POC ABG pCO2 POC ABG pO2 ABG pO2 ABG HCO3 ABG O2 Saturation ABG Base Excess ABG Hemoglobin Oxyhemoglobin Sodium 133 L Potassium Chloride 93.8 L Carbon Dioxide 18 L BUN 109 H Creatinine 7.4 H Glucose 124 H POC Glucose Lactic Acid Calcium 4.6 L* Ionized Calcium Phosphorus Magnesium Iron TIBC Ferritin Total Bilirubin Direct Bilirubin AST ALT Alkaline Phosphatase Total Creatine Kinase 3401 H CK-MB (CK-2) Troponin T C-Reactive Protein Total Protein Albumin Triglycerides 309 H LDL Cholesterol Direct HDL Cholesterol Free T4 PTH Intact Urine WBC (Auto) Urine Creatinine Salicylates Acetaminophen Crossmatch 03/29/19 03/29/19 03/29/19 11:48 11:48 18:24 WBC RBC Hgb 7.8 L Hct 23.2 L RDW Plt Count Lymph % (Auto) [place] % (Auto) Lymph # Seg Neutrophils % Seg Neuts % (Manual) Lymphocytes % (Manual) Monocytes % (Manual) Nucleated RBC % Seg Neutrophils # Seg Neutrophils # Man Lymphocytes # (Manual) Monocytes # (Manual) PT 15.3 H INR 1.24 H D-Dimer Heparin Anti-Xa Level POC ABG pH ABG pH POC ABG pCO2 POC ABG pO2 ABG pO2 ABG HCO3 ABG O2 Saturation ABG Base Excess ABG Hemoglobin Oxyhemoglobin Sodium Potassium Chloride Carbon Dioxide BUN Creatinine Glucose POC Glucose 122 H Lactic Acid Calcium Ionized Calcium Phosphorus Magnesium Iron TIBC Ferritin Total Bilirubin Direct Bilirubin AST ALT Alkaline Phosphatase Total Creatine Kinase CK-MB (CK-2) Troponin T C-Reactive Protein Total Protein Albumin Triglycerides LDL Cholesterol Direct HDL Cholesterol Free T4 PTH Intact Urine WBC (Auto) Urine Creatinine Salicylates Acetaminophen Crossmatch 03/30/19 03/30/19 03/30/19 00:40 04:31 05:04 WBC RBC Hgb 7.6 L Hct 23.0 L RDW Plt Count Lymph % (Auto) [place] % (Auto) Lymph # Seg Neutrophils % Seg Neuts % (Manual) Lymphocytes % (Manual) Monocytes % (Manual) Nucleated RBC % Seg Neutrophils # Seg Neutrophils # Man Lymphocytes # (Manual) Monocytes # (Manual) PT INR D-Dimer Heparin Anti-Xa Level POC ABG pH 7.346 L ABG pH POC ABG pCO2 POC ABG pO2 62 L ABG pO2 ABG HCO3 ABG O2 Saturation ABG Base Excess ABG Hemoglobin Oxyhemoglobin Sodium Potassium Chloride Carbon Dioxide BUN 79 H Creatinine 6.4 H Glucose POC Glucose Lactic Acid Calcium 6.1 L D Ionized Calcium Phosphorus Magnesium Iron TIBC Ferritin Total Bilirubin Direct Bilirubin AST ALT Alkaline Phosphatase Total Creatine Kinase CK-MB (CK-2) Troponin T C-Reactive Protein Total Protein Albumin Triglycerides LDL Cholesterol Direct HDL Cholesterol Free T4 PTH Intact Urine WBC (Auto) Urine Creatinine Salicylates Acetaminophen Crossmatch 03/30/19 03/30/19 03/30/19 08:45 12:09 22:43 WBC 14.3 H RBC 2.33 L Hgb 7.0 L 7.4 L Hct 21.0 L 22.3 L RDW 15.6 H Plt Count 135 L Lymph % (Auto) [place] % (Auto) Lymph # Seg Neutrophils % Seg Neuts % (Manual) Lymphocytes % (Manual) Monocytes % (Manual) Nucleated RBC % Seg Neutrophils # Seg Neutrophils # Man Lymphocytes # (Manual) Monocytes # (Manual) PT INR D-Dimer Heparin Anti-Xa Level POC ABG pH ABG pH POC ABG pCO2 POC ABG pO2 ABG pO2 ABG HCO3 ABG O2 Saturation ABG Base Excess ABG Hemoglobin Oxyhemoglobin Sodium Potassium Chloride Carbon Dioxide BUN Creatinine Glucose POC Glucose Lactic Acid Calcium Ionized Calcium 3.7 L Phosphorus Magnesium Iron TIBC Ferritin Total Bilirubin Direct Bilirubin AST ALT Alkaline Phosphatase Total Creatine Kinase CK-MB (CK-2) Troponin T C-Reactive Protein Total Protein Albumin Triglycerides LDL Cholesterol Direct HDL Cholesterol Free T4 PTH Intact Urine WBC (Auto) Urine Creatinine Salicylates Acetaminophen Crossmatch 03/30/19 03/30/19 03/31/19 23:38 Unknown 04:44 WBC 11.5 H RBC 2.40 L Hgb 7.3 L Hct 21.9 L RDW 15.4 H Plt Count Lymph % (Auto) 10.6 L [place] % (Auto) Lymph # Seg Neutrophils % 81.7 H Seg Neuts % (Manual) Lymphocytes % (Manual) Monocytes % (Manual) Nucleated RBC % Seg Neutrophils # 9.4 H Seg Neutrophils # Man Lymphocytes # (Manual) Monocytes # (Manual) PT INR D-Dimer Heparin Anti-Xa Level POC ABG pH ABG pH POC ABG pCO2 POC ABG pO2 ABG pO2 ABG HCO3 ABG O2 Saturation ABG Base Excess ABG Hemoglobin Oxyhemoglobin Sodium Potassium Chloride Carbon Dioxide BUN Creatinine Glucose POC Glucose 155 H Lactic Acid Calcium Ionized Calcium Phosphorus Magnesium Iron TIBC Ferritin Total Bilirubin Direct Bilirubin 0.4 H AST 63 H ALT Alkaline Phosphatase Total Creatine Kinase CK-MB (CK-2) Troponin T C-Reactive Protein Total Protein 4.9 L Albumin 2.2 L Triglycerides LDL Cholesterol Direct HDL Cholesterol Free T4 PTH Intact Urine WBC (Auto) Urine Creatinine Salicylates Acetaminophen Crossmatch 03/31/19 03/31/19 03/31/19 04:44 05:44 08:20 WBC RBC Hgb Hct RDW Plt Count Lymph % (Auto) [place] % (Auto) Lymph # Seg Neutrophils % Seg Neuts % (Manual) Lymphocytes % (Manual) Monocytes % (Manual) Nucleated RBC % Seg Neutrophils # Seg Neutrophils # Man Lymphocytes # (Manual) Monocytes # (Manual) PT INR D-Dimer Heparin Anti-Xa Level POC ABG pH ABG pH POC ABG pCO2 53.5 H POC ABG pO2 62 L ABG pO2 ABG HCO3 ABG O2 Saturation ABG Base Excess ABG Hemoglobin Oxyhemoglobin Sodium 135 L Potassium Chloride 96.7 L Carbon Dioxide 19 L BUN 94 H Creatinine 7.8 H Glucose POC Glucose Lactic Acid Calcium 5.3 L* Ionized Calcium Phosphorus 8.20 H Magnesium Iron TIBC Ferritin Total Bilirubin Direct Bilirubin 0.4 H AST 60 H ALT Alkaline Phosphatase Total Creatine Kinase CK-MB (CK-2) Troponin T C-Reactive Protein Total Protein 4.8 L Albumin 2.1 L Triglycerides LDL Cholesterol Direct HDL Cholesterol Free T4 PTH Intact Urine WBC (Auto) Urine Creatinine Salicylates Acetaminophen Crossmatch 03/31/19 04/01/19 04/01/19 22:14 04:27 04:27 WBC RBC 2.60 L Hgb 8.0 L Hct 24.1 L RDW 15.7 H Plt Count Lymph % (Auto) 7.9 L [place] % (Auto) Lymph # 0.7 L Seg Neutrophils % 83.6 H Seg Neuts % (Manual) Lymphocytes % (Manual) Monocytes % (Manual) Nucleated RBC % Seg Neutrophils # Seg Neutrophils # Man Lymphocytes # (Manual) Monocytes # (Manual) PT INR D-Dimer Heparin Anti-Xa Level POC ABG pH 7.286 L ABG pH POC ABG pCO2 54.7 H POC ABG pO2 179 H ABG pO2 ABG HCO3 ABG O2 Saturation ABG Base Excess ABG Hemoglobin Oxyhemoglobin Sodium Potassium Chloride Carbon Dioxide BUN 68 H Creatinine 6.6 H Glucose POC Glucose Lactic Acid Calcium 6.5 L D Ionized Calcium Phosphorus 7.30 H Magnesium Iron TIBC Ferritin Total Bilirubin Direct Bilirubin AST ALT Alkaline Phosphatase Total Creatine Kinase 1652 H CK-MB (CK-2) Troponin T C-Reactive Protein Total Protein Albumin Triglycerides LDL Cholesterol Direct HDL Cholesterol Free T4 PTH Intact Urine WBC (Auto) Urine Creatinine Salicylates Acetaminophen Crossmatch 04/01/19 04/01/19 04/01/19 05:14 05:37 18:37 WBC RBC Hgb Hct RDW Plt Count Lymph % (Auto) [place] % (Auto) Lymph # Seg Neutrophils % Seg Neuts % (Manual) Lymphocytes % (Manual) Monocytes % (Manual) Nucleated RBC % Seg Neutrophils # Seg Neutrophils # Man Lymphocytes # (Manual) Monocytes # (Manual) PT INR D-Dimer Heparin Anti-Xa Level POC ABG pH 7.283 L ABG pH POC ABG pCO2 53.4 H POC ABG pO2 241 H ABG pO2 ABG HCO3 ABG O2 Saturation ABG Base Excess ABG Hemoglobin Oxyhemoglobin Sodium Potassium Chloride Carbon Dioxide BUN Creatinine Glucose POC Glucose 111 H 119 H Lactic Acid Calcium Ionized Calcium Phosphorus Magnesium Iron TIBC Ferritin Total Bilirubin Direct Bilirubin AST ALT Alkaline Phosphatase Total Creatine Kinase CK-MB (CK-2) Troponin T C-Reactive Protein Total Protein Albumin Triglycerides LDL Cholesterol Direct HDL Cholesterol Free T4 PTH Intact Urine WBC (Auto) Urine Creatinine Salicylates Acetaminophen Crossmatch 04/01/19 04/02/19 04/02/19 21:28 04:40 05:03 WBC RBC 2.36 L Hgb 7.2 L Hct 21.9 L RDW 16.0 H Plt Count Lymph % (Auto) 10.8 L [place] % (Auto) Lymph # 0.8 L Seg Neutrophils % 80.3 H Seg Neuts % (Manual) Lymphocytes % (Manual) Monocytes % (Manual) Nucleated RBC % Seg Neutrophils # Seg Neutrophils # Man Lymphocytes # (Manual) Monocytes # (Manual) PT INR D-Dimer Heparin Anti-Xa Level POC ABG pH 7.299 L 7.300 L ABG pH POC ABG pCO2 48.2 H 45.2 H POC ABG pO2 133 H 107 H ABG pO2 ABG HCO3 ABG O2 Saturation ABG Base Excess ABG Hemoglobin Oxyhemoglobin Sodium Potassium Chloride Carbon Dioxide BUN Creatinine Glucose POC Glucose Lactic Acid Calcium Ionized Calcium Phosphorus Magnesium Iron TIBC Ferritin Total Bilirubin Direct Bilirubin AST ALT Alkaline Phosphatase Total Creatine Kinase CK-MB (CK-2) Troponin T C-Reactive Protein Total Protein Albumin Triglycerides LDL Cholesterol Direct HDL Cholesterol Free T4 PTH Intact Urine WBC (Auto) Urine Creatinine Salicylates Acetaminophen Crossmatch 04/02/19 04/02/19 04/02/19 05:03 05:03 12:15 WBC RBC Hgb 7.4 L Hct 22.6 L RDW Plt Count Lymph % (Auto) [place] % (Auto) Lymph # Seg Neutrophils % Seg Neuts % (Manual) Lymphocytes % (Manual) Monocytes % (Manual) Nucleated RBC % Seg Neutrophils # Seg Neutrophils # Man Lymphocytes # (Manual) Monocytes # (Manual) PT INR D-Dimer Heparin Anti-Xa Level POC ABG pH ABG pH POC ABG pCO2 POC ABG pO2 ABG pO2 ABG HCO3 ABG O2 Saturation ABG Base Excess ABG Hemoglobin Oxyhemoglobin Sodium 136 L Potassium Chloride 97.8 L Carbon Dioxide 18 L BUN 82 H Creatinine 8.2 H Glucose POC Glucose Lactic Acid Calcium 6.7 L Ionized Calcium Phosphorus 7.50 H Magnesium Iron 26 L TIBC 138 L Ferritin 607.0 H Total Bilirubin Direct Bilirubin AST ALT Alkaline Phosphatase Total Creatine Kinase CK-MB (CK-2) Troponin T C-Reactive Protein Total Protein Albumin Triglycerides LDL Cholesterol Direct HDL Cholesterol Free T4 PTH Intact Urine WBC (Auto) Urine Creatinine Salicylates Acetaminophen Crossmatch 04/02/19 04/02/19 04/03/19 16:34 17:14 04:18 WBC RBC Hgb Hct RDW Plt Count Lymph % (Auto) [place] % (Auto) Lymph # Seg Neutrophils % Seg Neuts % (Manual) Lymphocytes % (Manual) Monocytes % (Manual) Nucleated RBC % Seg Neutrophils # Seg Neutrophils # Man Lymphocytes # (Manual) Monocytes # (Manual) PT INR D-Dimer Heparin Anti-Xa Level POC ABG pH ABG pH POC ABG pCO2 POC ABG pO2 146 H ABG pO2 ABG HCO3 ABG O2 Saturation ABG Base Excess ABG Hemoglobin Oxyhemoglobin Sodium Potassium Chloride Carbon Dioxide BUN Creatinine Glucose POC Glucose 108 H Lactic Acid Calcium Ionized Calcium Phosphorus Magnesium Iron TIBC Ferritin Total Bilirubin Direct Bilirubin AST ALT Alkaline Phosphatase Total Creatine Kinase CK-MB (CK-2) Troponin T C-Reactive Protein Total Protein Albumin Triglycerides LDL Cholesterol Direct HDL Cholesterol Free T4 PTH Intact Urine WBC (Auto) Urine Creatinine Salicylates Acetaminophen Crossmatch See Detail 04/03/19 04/03/19 04/03/19 04:25 08:30 18:24 WBC RBC 2.40 L Hgb 7.3 L Hct 21.9 L RDW Plt Count Lymph % (Auto) [place] % (Auto) 7.7 H Lymph # 0.9 L Seg Neutrophils % 74.6 H Seg Neuts % (Manual) Lymphocytes % (Manual) Monocytes % (Manual) Nucleated RBC % Seg Neutrophils # Seg Neutrophils # Man Lymphocytes # (Manual) Monocytes # (Manual) PT INR D-Dimer Heparin Anti-Xa Level POC ABG pH ABG pH POC ABG pCO2 POC ABG pO2 ABG pO2 ABG HCO3 ABG O2 Saturation ABG Base Excess ABG Hemoglobin Oxyhemoglobin Sodium 136 L Potassium Chloride 97.0 L Carbon Dioxide BUN 58 H Creatinine 7.3 H Glucose POC Glucose 106 H Lactic Acid Calcium 7.5 L Ionized Calcium Phosphorus 5.80 H D Magnesium Iron TIBC Ferritin Total Bilirubin Direct Bilirubin AST ALT Alkaline Phosphatase Total Creatine Kinase CK-MB (CK-2) Troponin T C-Reactive Protein Total Protein Albumin Triglycerides LDL Cholesterol Direct HDL Cholesterol Free T4 PTH Intact Urine WBC (Auto) Urine Creatinine Salicylates Acetaminophen Crossmatch 04/03/19 04/04/19 04/04/19 23:43 04:47 04:47 WBC RBC 2.72 L Hgb 8.3 L Hct 24.7 L RDW 15.6 H Plt Count Lymph % (Auto) [place] % (Auto) 10.1 H Lymph # 0.8 L Seg Neutrophils % 71.4 H Seg Neuts % (Manual) Lymphocytes % (Manual) Monocytes % (Manual) Nucleated RBC % Seg Neutrophils # Seg Neutrophils # Man Lymphocytes # (Manual) Monocytes # (Manual) PT INR D-Dimer Heparin Anti-Xa Level POC ABG pH ABG pH POC ABG pCO2 POC ABG pO2 ABG pO2 123.8 H ABG HCO3 ABG O2 Saturation ABG Base Excess -3.0 L ABG Hemoglobin 7.9 L Oxyhemoglobin Sodium 134 L Potassium Chloride 97.9 L Carbon Dioxide BUN 64 H Creatinine 8.1 H Glucose POC Glucose Lactic Acid Calcium 7.2 L Ionized Calcium Phosphorus Magnesium Iron TIBC Ferritin Total Bilirubin Direct Bilirubin AST ALT Alkaline Phosphatase Total Creatine Kinase CK-MB (CK-2) Troponin T C-Reactive Protein Total Protein Albumin Triglycerides LDL Cholesterol Direct HDL Cholesterol Free T4 PTH Intact Urine WBC (Auto) Urine Creatinine Salicylates Acetaminophen Crossmatch 04/04/19 04/04/19 04/04/19 06:07 13:40 18:18 WBC RBC Hgb Hct RDW Plt Count Lymph % (Auto) [place] % (Auto) Lymph # Seg Neutrophils % Seg Neuts % (Manual) Lymphocytes % (Manual) Monocytes % (Manual) Nucleated RBC % Seg Neutrophils # Seg Neutrophils # Man Lymphocytes # (Manual) Monocytes # (Manual) PT INR D-Dimer Heparin Anti-Xa Level POC ABG pH ABG pH POC ABG pCO2 POC ABG pO2 ABG pO2 95.9 H ABG HCO3 ABG O2 Saturation ABG Base Excess -3.0 L ABG Hemoglobin 8.5 L Oxyhemoglobin Sodium Potassium Chloride Carbon Dioxide BUN Creatinine Glucose POC Glucose 107 H 107 H Lactic Acid Calcium Ionized Calcium Phosphorus Magnesium Iron TIBC Ferritin Total Bilirubin Direct Bilirubin AST ALT Alkaline Phosphatase Total Creatine Kinase CK-MB (CK-2) Troponin T C-Reactive Protein Total Protein Albumin Triglycerides LDL Cholesterol Direct HDL Cholesterol Free T4 PTH Intact Urine WBC (Auto) Urine Creatinine Salicylates Acetaminophen Crossmatch 04/04/19 04/05/19 04/05/19 21:22 04:09 04:09 WBC RBC 2.76 L Hgb 8.4 L Hct 25.4 L RDW 15.8 H Plt Count 133 L Lymph % (Auto) [place] % (Auto) 9.6 H Lymph # 0.7 L Seg Neutrophils % 72.6 H Seg Neuts % (Manual) Lymphocytes % (Manual) Monocytes % (Manual) Nucleated RBC % Seg Neutrophils # Seg Neutrophils # Man Lymphocytes # (Manual) Monocytes # (Manual) PT INR D-Dimer Heparin Anti-Xa Level POC ABG pH ABG pH POC ABG pCO2 47.2 H POC ABG pO2 137 H ABG pO2 ABG HCO3 ABG O2 Saturation ABG Base Excess ABG Hemoglobin Oxyhemoglobin Sodium 136 L Potassium Chloride Carbon Dioxide BUN 46 H Creatinine 6.7 H Glucose POC Glucose Lactic Acid Calcium 7.7 L Ionized Calcium Phosphorus Magnesium Iron TIBC Ferritin Total Bilirubin Direct Bilirubin AST ALT Alkaline Phosphatase Total Creatine Kinase CK-MB (CK-2) Troponin T C-Reactive Protein Total Protein Albumin Triglycerides LDL Cholesterol Direct HDL Cholesterol Free T4 PTH Intact Urine WBC (Auto) Urine Creatinine Salicylates Acetaminophen Crossmatch 04/05/19 04/05/19 04/05/19 05:28 06:14 16:50 WBC RBC Hgb Hct RDW Plt Count Lymph % (Auto) [place] % (Auto) Lymph # Seg Neutrophils % Seg Neuts % (Manual) Lymphocytes % (Manual) Monocytes % (Manual) Nucleated RBC % Seg Neutrophils # Seg Neutrophils # Man Lymphocytes # (Manual) Monocytes # (Manual) PT INR D-Dimer Heparin Anti-Xa Level POC ABG pH ABG pH POC ABG pCO2 POC ABG pO2 67 L ABG pO2 ABG HCO3 ABG O2 Saturation ABG Base Excess ABG Hemoglobin Oxyhemoglobin Sodium Potassium Chloride Carbon Dioxide BUN Creatinine Glucose POC Glucose 108 H Lactic Acid Calcium Ionized Calcium Phosphorus Magnesium Iron TIBC Ferritin Total Bilirubin Direct Bilirubin AST ALT Alkaline Phosphatase Total Creatine Kinase CK-MB (CK-2) Troponin T C-Reactive Protein Total Protein Albumin Triglycerides LDL Cholesterol Direct HDL Cholesterol Free T4 PTH Intact Urine WBC (Auto) 40.0 H Urine Creatinine Salicylates Acetaminophen Crossmatch 04/05/19 04/06/19 04/06/19 17:22 00:13 04:44 WBC RBC 2.48 L Hgb 7.5 L Hct 22.9 L RDW 16.0 H Plt Count 107 L Lymph % (Auto) [place] % (Auto) 10.7 H Lymph # 1.0 L Seg Neutrophils % Seg Neuts % (Manual) Lymphocytes % (Manual) Monocytes % (Manual) Nucleated RBC % Seg Neutrophils # Seg Neutrophils # Man Lymphocytes # (Manual) Monocytes # (Manual) PT INR D-Dimer Heparin Anti-Xa Level POC ABG pH ABG pH POC ABG pCO2 POC ABG pO2 ABG pO2 ABG HCO3 ABG O2 Saturation ABG Base Excess ABG Hemoglobin Oxyhemoglobin Sodium Potassium Chloride Carbon Dioxide BUN Creatinine Glucose POC Glucose 118 H 138 H Lactic Acid Calcium Ionized Calcium Phosphorus Magnesium Iron TIBC Ferritin Total Bilirubin Direct Bilirubin AST ALT Alkaline Phosphatase Total Creatine Kinase CK-MB (CK-2) Troponin T C-Reactive Protein Total Protein Albumin Triglycerides LDL Cholesterol Direct HDL Cholesterol Free T4 PTH Intact Urine WBC (Auto) Urine Creatinine Salicylates Acetaminophen Crossmatch 04/06/19 04/06/19 04/06/19 04:44 05:20 05:23 WBC RBC Hgb Hct RDW Plt Count Lymph % (Auto) [place] % (Auto) Lymph # Seg Neutrophils % Seg Neuts % (Manual) Lymphocytes % (Manual) Monocytes % (Manual) Nucleated RBC % Seg Neutrophils # Seg Neutrophils # Man Lymphocytes # (Manual) Monocytes # (Manual) PT INR D-Dimer Heparin Anti-Xa Level POC ABG pH ABG pH POC ABG pCO2 POC ABG pO2 ABG pO2 104.0 H ABG HCO3 ABG O2 Saturation ABG Base Excess -2.1 L ABG Hemoglobin 7.3 L Oxyhemoglobin Sodium Potassium Chloride Carbon Dioxide BUN 64 H Creatinine 8.2 H Glucose 103 H POC Glucose 118 H Lactic Acid Calcium 7.3 L Ionized Calcium Phosphorus Magnesium Iron TIBC Ferritin Total Bilirubin Direct Bilirubin AST ALT Alkaline Phosphatase Total Creatine Kinase CK-MB (CK-2) Troponin T C-Reactive Protein Total Protein Albumin Triglycerides LDL Cholesterol Direct HDL Cholesterol Free T4 PTH Intact Urine WBC (Auto) Urine Creatinine Salicylates Acetaminophen Crossmatch 04/06/19 04/07/19 04/07/19 12:02 05:40 05:40 WBC RBC 2.59 L Hgb 7.9 L Hct 23.8 L RDW 15.8 H Plt Count 89 L Lymph % (Auto) [place] % (Auto) 10.3 H Lymph # 1.1 L Seg Neutrophils % Seg Neuts % (Manual) Lymphocytes % (Manual) Monocytes % (Manual) Nucleated RBC % Seg Neutrophils # Seg Neutrophils # Man Lymphocytes # (Manual) Monocytes # (Manual) PT INR D-Dimer Heparin Anti-Xa Level POC ABG pH ABG pH POC ABG pCO2 POC ABG pO2 ABG pO2 ABG HCO3 ABG O2 Saturation ABG Base Excess ABG Hemoglobin Oxyhemoglobin Sodium 136 L Potassium 3.5 L Chloride Carbon Dioxide BUN 46 H Creatinine 6.2 H Glucose POC Glucose 108 H Lactic Acid Calcium 7.9 L Ionized Calcium Phosphorus Magnesium Iron TIBC Ferritin Total Bilirubin Direct Bilirubin AST ALT Alkaline Phosphatase Total Creatine Kinase CK-MB (CK-2) Troponin T C-Reactive Protein Total Protein Albumin Triglycerides LDL Cholesterol Direct HDL Cholesterol Free T4 PTH Intact Urine WBC (Auto) Urine Creatinine Salicylates Acetaminophen Crossmatch 04/07/19 04/09/19 04/09/19 12:57 04:28 04:28 WBC RBC 2.85 L Hgb 8.7 L Hct 26.2 L RDW 15.6 H Plt Count Lymph % (Auto) [place] % (Auto) 10.4 H Lymph # 1.0 L Seg Neutrophils % 73.3 H Seg Neuts % (Manual) Lymphocytes % (Manual) Monocytes % (Manual) Nucleated RBC % Seg Neutrophils # Seg Neutrophils # Man Lymphocytes # (Manual) Monocytes # (Manual) PT INR D-Dimer Heparin Anti-Xa Level POC ABG pH ABG pH POC ABG pCO2 POC ABG pO2 107 H ABG pO2 ABG HCO3 ABG O2 Saturation ABG Base Excess ABG Hemoglobin Oxyhemoglobin Sodium Potassium 3.5 L Chloride 97.8 L Carbon Dioxide BUN 62 H Creatinine 8.1 H Glucose POC Glucose Lactic Acid Calcium 8.2 L Ionized Calcium Phosphorus 5.10 H Magnesium Iron TIBC Ferritin Total Bilirubin Direct Bilirubin AST ALT Alkaline Phosphatase Total Creatine Kinase CK-MB (CK-2) Troponin T C-Reactive Protein Total Protein Albumin Triglycerides LDL Cholesterol Direct HDL Cholesterol Free T4 PTH Intact Urine WBC (Auto) Urine Creatinine Salicylates Acetaminophen Crossmatch Allied health notes reviewed: RT
--- NOTE | 2019-04-10 09:31 | Progress Note ---
Assessment and Plan 1. Acute kidney injury: Vasomotor RUBEN in the setting of shock / volume depletion / Rhabdo. Baseline renal function is unknown. CT abdomen was negative for obstructive nephropathy. Monitor renal function. Renal prognosis is guarded. Avoid nephrotoxic agents. Meds dosage based on GFR. Patient was started on hemodialysis on 03/18/19 due to worsening metabolic acidosis and hyperkalemia. Hemodialysis: 03/18, 03/19, 03/20, 03/22, 03/23, 03/24, 03/26, 03/28, 03/29, 03/31, 04/02, 04/04, 04/06, 04/09. 2. FEN: Hyperkalemia, improved. Hyponatremia, improved. Metabolic acidosis, on maintenance HD. Volume overload, UF with HD as tolerated. Hypocalcemia, likely multifactorial. On Phoslo and Zemplar. Monitor lytes. 3. Septic shock: Followed by ID. Currently off pressors. 4. Rhabdomyolysis: Improved. 5. A.fib with RVR: Amiodarone drip. Followed by Cards. 6. Respiratory failure: Extubated. 7. Severe anemia: S/p PRBC. On Epogen. 8. Elevated transaminases. 9. Encephalopathy. Examination: General appearance: well-developed, appears stated age, obese HEENT: Atraumatic EYES: Pupils reacting to light Neck: supple Respiratory: CTAB, decreased breath sounds Cardiology: irregular, S1S2 heard, no murmur Gastrointestinal: no tenderness, obese, BS heard Integumentary: no rash noted Neurologic: opens eyes Ext: 1+ edema of all 4 extremities : scrotal edema noted Hemodialysis access: R IJ temp catheter Subjective Date of service: 04/10/19 Principal diagnosis: anemia - IJ DVT Interval history: Patient was seen and examined at the bedside. Objective - Vital Signs Vital signs: Vital Signs - 12hr 04/09/19 04/09/19 04/09/19 21:45 21:56 22:00 Temperature Pulse Rate 85 85 85 Pulse Rate [ From Monitor] Respiratory 34 H 35 H 35 H Rate Blood Pressure 132/70 132/70 130/73 O2 Sat by Pulse 99 98 98 Oximetry 04/09/19 04/09/19 04/09/19 22:15 22:30 22:45 Temperature Pulse Rate 86 133 H 88 Pulse Rate [ From Monitor] Respiratory 37 H 24 40 H Rate Blood Pressure 132/72 114/80 130/71 O2 Sat by Pulse 98 98 97 Oximetry 04/09/19 04/09/19 04/09/19 23:00 23:15 23:30 Temperature Pulse Rate 85 96 H 84 Pulse Rate [ From Monitor] Respiratory 33 H 31 H 32 H Rate Blood Pressure 122/73 130/80 128/73 O2 Sat by Pulse 100 98 98 Oximetry 04/09/19 04/09/19 04/10/19 23:41 23:46 00:00 Temperature 99.4 F Pulse Rate 133 H 128 H Pulse Rate [ 111 H From Monitor] Respiratory 36 H 39 H Rate Blood Pressure 122/86 124/88 O2 Sat by Pulse 98 99 Oximetry 04/10/19 04/10/19 04/10/19 00:16 00:30 00:45 Temperature Pulse Rate 93 H 90 87 Pulse Rate [ From Monitor] Respiratory 42 H 36 H 33 H Rate Blood Pressure 126/76 131/78 129/70 O2 Sat by Pulse 99 99 97 Oximetry 04/10/19 04/10/19 04/10/19 01:00 01:16 01:30 Temperature Pulse Rate 125 H 91 H 89 Pulse Rate [ From Monitor] Respiratory 24 36 H 38 H Rate Blood Pressure 133/79 126/71 128/72 O2 Sat by Pulse 96 98 96 Oximetry 04/10/19 04/10/19 04/10/19 01:35 01:45 02:00 Temperature Pulse Rate 87 88 Pulse Rate [ From Monitor] Respiratory 37 H 35 H Rate Blood Pressure 126/75 130/74 O2 Sat by Pulse 100 97 98 Oximetry 04/10/19 04/10/19 04/10/19 02:16 02:30 02:45 Temperature Pulse Rate 131 H 92 H 91 H Pulse Rate [ From Monitor] Respiratory 37 H 39 H 37 H Rate Blood Pressure 135/78 132/78 135/77 O2 Sat by Pulse 98 98 98 Oximetry 04/10/19 04/10/19 04/10/19 03:00 03:16 03:22 Temperature 100.3 F H Pulse Rate 86 84 Pulse Rate [ From Monitor] Respiratory 24 17 Rate Blood Pressure 135/77 135/77 O2 Sat by Pulse 99 99 Oximetry 04/10/19 04/10/19 04/10/19 03:30 03:45 04:00 Temperature Pulse Rate 132 H 132 H 137 H Pulse Rate [ 111 H From Monitor] Respiratory 23 31 H 24 Rate Blood Pressure 134/85 132/82 O2 Sat by Pulse 99 99 100 Oximetry 04/10/19 04/10/19 04/10/19 04:16 04:30 04:46 Temperature Pulse Rate 142 H 132 H 144 H Pulse Rate [ From Monitor] Respiratory 31 H 35 H 19 Rate Blood Pressure 130/84 142/76 136/85 O2 Sat by Pulse 99 99 99 Oximetry 04/10/19 04/10/19 04/10/19 05:00 05:15 05:30 Temperature Pulse Rate 151 H 128 H 91 H Pulse Rate [ From Monitor] Respiratory 26 H 30 H 19 Rate Blood Pressure 136/85 138/84 137/82 O2 Sat by Pulse 99 99 99 Oximetry 04/10/19 04/10/19 04/10/19 05:45 06:00 06:15 Temperature Pulse Rate 91 H 90 91 H Pulse Rate [ From Monitor] Respiratory 23 17 23 Rate Blood Pressure 139/79 135/79 137/81 O2 Sat by Pulse 99 99 99 Oximetry 04/10/19 04/10/19 04/10/19 06:30 06:45 07:59 Temperature Pulse Rate 92 H 93 H Pulse Rate [ From Monitor] Respiratory 19 24 Rate Blood Pressure 141/79 135/78 O2 Sat by Pulse 99 99 99 Oximetry - Lab 04/09/19 04:28 04/09/19 04:28 Most recent lab results ABG pH 7.388 pH Units (7.350-7.450) 04/06/19 05:20 ABG pCO2 38.5 mm Hg 04/06/19 05:20 ABG pO2 104.0 mm Hg (80.0-90.0) H 04/06/19 05:20 ABG HCO3 22.6 mmol/L (20.0-26.0) 04/06/19 05:20 ABG O2 Saturation 97.8 % (95.0-99.0) 04/06/19 05:20 Calcium 8.2 mg/dL (8.4-10.2) L 04/09/19 04:28 Phosphorus 5.10 mg/dL (2.5-4.5) H 04/09/19 04:28 Magnesium 1.90 mg/dL (1.7-2.3) 03/31/19 15:07 Urine Creatinine 106.6 mg/dL (0.1-20.0) H 03/17/19 16:05 Urine Sodium 95 mmol/L 03/17/19 16:05 Medications & Allergies - Medications Allergies/Adverse Reactions: Allergies No Known Allergies Allergy (Unverified 03/16/19 17:17) Home Medications: Home Medications Medication Instructions Recorded Confirmed Last Taken Type Unobtainable 03/18/19 03/18/19 Unknown History Active Medications: Generic Name Dose Route Start Last Admin Trade Name Freq PRN Reason Stop Dose Admin Acetaminophen 650 mg 04/02/19 23:26 04/06/19 00:22 Tylenol PO 650 mg Q4H PRN Administration Pain, Mild (1-3),temp>100.5 Albuterol 2.5 mg 03/29/19 13:08 Proventil IH Q4HRT PRN Shortness Of Breath Lipase/Protease/Amylase 1 each 03/17/19 14:[address] 10,500 Unit FEEDTUBE PRN PRN For Clogged Feeding Tube Bacitracin 1 applic 04/09/19 02:43 04/09/19 03:47 Antibiotic Oint TP 1 applic PRN PRN Administration upper lip sore/open Calcium Acetate 1,334 mg 03/31/19 14:00 04/09/19 21:50 Phoslo PO Not Given TID PAOLO Dextrose 50 gm 03/19/19 18:39 03/26/19 23:26 D50w (25gm) Vial IV 50 gm PRN PRN Administration Hypoglycemia Epoetin Jet 20,000 unit 03/31/19 10:15 04/06/19 10:41 Procrit SUB-Q 20,000 unit NEYMAR PRN Administration hemodialysis Fentanyl 50 mcg 03/26/19 12:00 04/05/19 14:47 Sublimaze IV 50 mcg Q1H PRN Administration Pain, Moderate (4-6) Hydrophilic Ointment 1 applic 03/16/19 15:50 Vaseline Lip Therapy TP Q2HR PRN Dry Lips Dextrose/Sodium Chloride 1,000 mls @ 42 mls/hr 04/07/19 19:00 04/08/19 15:00 D5/0.45ns IV 0 mls/hr DIRECT PAOLO Infusion Sodium Chloride 100 mls @ 999 mls/hr 04/09/19 07:02 Nacl 0.9% IV NEYMAR PRN Hypotension Amiodarone HCl 900 mg/ 500 mls @ 33.333 mls/hr 04/10/19 01:00 04/10/19 07:00 Dextrose IV 0.5 mg/min DIRECT PAOLO 16.667 mls/hr Infusion Protocol 1 MG/MIN Multi-Ingred Cream/Lotion/Oil/Oint 1 applic 03/16/19 15:50 03/19/19 20:10 Artificial Tears Ophth Oint OU 1 applic Q4HR PRN Administration Dry Eye(s) Ondansetron HCl 4 mg 03/16/19 22:21 04/06/19 23:50 Zofran IV 4 mg Q8H PRN Administration Nausea And Vomiting Pantoprazole Sodium 40 mg 04/04/19 22:00 04/10/19 00:03 Protonix IV 40 mg BID PAOLO Administration Paricalcitol 2 mcg 03/30/19 10:00 04/09/19 10:00 Zemplar IV 2 mcg DAILY PAOLO Administration Simple Syrup 15 ml 03/17/19 14:45 03/26/19 23:19 Simple Syrup FEEDTUBE 15 ml PRN PRN Administration Hypoglycemia Simple Syrup 30 ml 03/17/19 14:45 Simple Syrup FEEDTUBE PRN PRN Hypoglycemia Sodium Bicarbonate 325 mg 03/17/19 14:45 Sodium Bicarbonate FEEDTUBE PRN PRN For Clogged Feeding Tube
[2019-04-10] MEDS: PARICALCITOL 2 MCG/1 ML INJ IV SCH (10:00)
[2019-04-10] MEDS: D5W/0.45% NACL 1,000 ML IV SCH (11:00)
--- NOTE | 2019-04-10 12:06 | Progress Note ---
Assessment and Plan Pt failed swallow eval and thus is currently strict NPO. Optimize HR - cont IV amio and initiate IV lopressor. No systemic AC regarding AFib in setting of anemia, thrombocytopenia, GI bleed. Continue supportive measures. Can consider ischemic evaluation if/when medically stabilized. Overall guarded prognosis. The patient has been seen in conjunction with Dr. Rojas who agrees with the assessment and plan of care. - Patient Problems (1) Cardiopulmonary arrest Current Visit: Yes Status: Acute (2) Acute respiratory failure Current Visit: Yes Status: Acute (3) Paroxysmal atrial fibrillation with RVR Current Visit: Yes Status: Acute (4) SVT (supraventricular tachycardia) Current Visit: Yes Status: Acute (5) Torsades de pointes Current Visit: Yes Status: Acute (6) Ventricular tachycardia Current Visit: Yes Status: Acute (7) Encephalopathy Current Visit: Yes Status: Acute (8) Septic shock Current Visit: Yes Status: Acute (9) Aspiration pneumonia Current Visit: Yes Status: Acute (10) Meningitis Current Visit: Yes Status: Suspected (11) Cellulitis Current Visit: Yes Status: Acute (12) Acute renal failure Current Visit: Yes Status: Acute (13) GI bleed Current Visit: Yes Status: Acute (14) Anemia Current Visit: Yes Status: Acute (15) Thrombocytopenia Current Visit: Yes Status: Acute (16) DVT (deep venous thrombosis) Current Visit: Yes Status: Acute Subjective Date of service: 04/10/19 Principal diagnosis: anemia - IJ DVT Interval history: pt alert, following some commands. in AFib with RVR HR 120s, amio gtt was resumed overnight. Objective Last Vital Signs Temp 99.3 F 04/10/19 08:00 Pulse 93 H 04/10/19 06:45 Resp 24 04/10/19 06:45 BP 135/78 04/10/19 06:45 Pulse Ox 99 04/10/19 07:59 - Physical Examination General: No Apparent Distress HEENT: Positive: EOMI, Normocephaly, Mucus Membranes Moist Neck: Positive: neck supple, trachea midline Cardiac: Positive: irregularly irregular, S1/S2, Tachycardia Lungs: Positive: Decreased Breath Sounds Neuro: Positive: Grossly Intact, Other (Awake, responsive) Abdomen: Positive: Soft, Active Bowel Sounds. Negative: Tender /Rectal: Other (deferred) Skin: Positive: Clear. Negative: Rash Musculoskeletal: Normal Range of Motion Extremities: Present: normal - Imaging and Cardiology Echo: report reviewed ( EF 40-45%, impaired relaxation. ) - EKG Sinus rhythms and dysrhythmias: sinus rhythm - Allied health notes Allied health notes reviewed: RT
[2019-04-10] MEDS: METOPROLOL TARTRATE 5 MG/5 ML INJ IV SCH ×2 (13:06→20:17)
--- NOTE | 2019-04-10 15:55 | Progress Note ---
Assessment and Plan Cultures: 03/16/2019 sputum: salivary contamination 03/16/2019 Blood culture: no growth 03/17/2019 Urine culture no growth 03/17/2019 throat culture: no growth 03/26/2019 Blood culture: no growth 03/27/2019 Blood culture negative. 04/04/2019 blood culture NGTD 04/05/2019 urine culture: no growth Assessment: 43y/o male with possible psych history admitted on 03/16/2019 with: 1) Septic shock: Resolved. Fever after right IJ exchanged overwire on 03/27, fever is better; leukocytosis resolved. Fever source is unclear - suspect IJ DVT ?thrombophlebitis, other ?NMS ?sinusitis, ?drug fever. Brain MRI showed no acute intracranial abnormality, mild nonspecific chronic white matter changes, fluid throughout the sinuses and mastoid air cells. Venous US + right IJ DVT. Completed empiric Cefepime x 10 days on 04/06/2019. Initial septic shock - Possible Infectious etiology v/s possibility of N euroleptic Malignant Syndrome given psych history, high fever of 105F and extremely elevated CPK of >100K. Unclear if he was on any psych med. From ID standpoint, we will continue broad coverage for acute bacterial meningitis, tick borne illness, aspiration pneumonia. Blood culture negative UA with mild pyuria. HIV rapid negative. Strep A rapid ag negative. No obvious infectious source identified yet. 2) Probable aspiration pneumonia: Already completed adequate abx. 3) Acute respiratory failure: on the vent. Improving. 4) ?Right axillary edema: no abscess, US no collection seen 5) Acute encephalopathy: improving, awake, alert, calm. CT head showed diffuse cerebral edema ?artifact. But too unstable for LP at this time. Low suspicion for HSV meningoencephalitis given the degree of his initial shock and clinical status. Given nationwide acyclovir shortage and low suspicion, would not recommend IV Ganciclovir at this time. 6) Acute renal failure: renally dosing all abx, now on HD 7) Elevated LFTs/shock liver: also likely elevated from Rhabdomyolysis. Viral hepatitis panel negative. LFTs improved. 8) Thrombocytopenia: multifactorial - better 9) Rhabdomyolysis: CK continues to improve 10) ?Enteritis: per CT ? no collection no perforation no obvious ischemic bowel. Gen. Surg following Recommendations: Low grade fever. Remains off abx for the last few days, if he spikes a fever >101F, would obtain blood cultures and restart IV Cefepime and Vancomycin CBC, CMP ordered for tomorrow Continue supportive care and wound care Katherine Elizabeth MD, FACP [facility] C: [phone] O: [phone] F: [phone] Subjective Date of service: 04/10/19 Principal diagnosis: anemia - IJ DVT Interval history: Moved to [facility]. Low grade fevers +. On Amio drip. Making urine. Discussed with RN. Objective - Exam Narrative Exam: Physical Exam: Constitutional: awake, but mild distress Head, Ears, Nose: Normocephalic, atraumatic. External ears, nose normal Eyes: Conjunctivae/corneas clear. No icterus. No ptosis. Neck: Supple, no meningeal signs. R IJ HD cath + Cardiovascular: S1, S2 normal. Respiratory: Good air entry, clear to auscultation bilaterally GI: Soft, non-tender; bowel sounds normal. No peritoneal signs Musculoskeletal: anasarca+, pedal and scrotal edema + Skin: No rash or abscess Hem/Lymphatic: No palpable cervical or supraclavicular nodes. No lymphangitis Psych: awake, no agitation Neurological: awake, alert. - Constitutional Vitals: Vital Signs Temp Pulse Resp BP Pulse Ox 100.2 F H 142 H 41 H 119/91 97 04/10/19 12:00 04/10/19 14:30 04/10/19 14:30 04/10/19 14:30 04/10/19 14:30 Temperature -Last 24 Hours Temperature 100.2 F Temperature 99.3 F Temperature 100.3 F Temperature 99.4 F Temperature 99.2 F Temperature 99.5 F - Labs CBC & Chem 7: 04/09/19 04:28 04/09/19 04:28
[2019-04-10] MEDS ORDERED: BUMETANIDE 1 MG/4 ML INJ IV SCH (18:00)
--- NOTE | 2019-04-10 18:27 | Progress Note ---
Assessment and Plan Assessment and plan: The high probability of a clinically significant, sudden or life threatening deterioration of the [] system(s) required my full and direct attention, intervention and personal management. The aggregate critical care time was [] minutes. This time is in addition to time spent performing reported procedures but includes the following: [x] Data Review and interpretation [x] Patient assessment and monitoring of vital signs [x] Documentation [x] Medication orders and management Total Time Spent with Patient (Minutes): 38 History Interval history: pt remains ill failied swallowing evaluation. in HR at present patient is un responsive appears ill edematous. Unable to make needs known at this time. Hospitalist Physical - Constitutional Vitals: Temp Pulse Resp BP Pulse Ox 97.8 F 144 H 49 H 129/96 97 04/10/19 16:00 04/10/19 16:03 04/10/19 16:03 04/10/19 16:03 04/10/19 16:03 General appearance: Present: no acute distress, other (intubated) - EENT Eyes: Present: PERRL, EOM intact ENT: hearing intact, clear oral mucosa, dentition normal - Neck Neck: Present: supple, normal ROM. Absent: enlarged thyroid, masses or JVD, carotid bruits - Respiratory Respiratory: bilateral: diminished, rales - Cardiovascular Rhythm: irregularly irregular Heart Sounds: Present: S1 & S2, systolic murmur - Extremities Extremities: no ischemia, pulses intact Extremity abnormal: edema, ulceration, erythema Peripheral Pulses: abnormal - Abdominal General gastrointestinal: soft, non-distended, hypoactive bowel sounds, other (obese) - Integumentary Integumentary: Present: clear, warm - Neurologic Neurologic: focal deficits, other (patient unresponsive unable to make needs known encephalopathic and not moving extremities.) Results - Labs CBC & Chem 7: 04/11/19 04:16 04/11/19 09:21 Labs: Laboratory Last Values WBC 7.5 K/mm3 (4.5-11.0) 04/09/19 04:28 RBC 2.85 M/mm3 (3.65-5.03) L 04/09/19 04:28 Hgb 8.7 gm/dl (11.8-15.2) L 04/09/19 04:28 Hct 26.2 % (35.5-45.6) L 04/09/19 04:28 MCV 92 fl (84-94) 04/09/19 04:28 MCH 31 pg (28-32) 04/09/19 04:28 MCHC 33 % (32-34) 04/09/19 04:28 RDW 15.6 % (13.2-15.2) H 04/09/19 04:28 Plt Count 152 K/mm3 (140-440) 04/09/19 04:28 Lymph % (Auto) 13.4 % (13.4-35.0) 04/09/19 04:28 [place] % (Auto) 10.4 % (0.0-7.3) H 04/09/19 04:28 Eos % (Auto) 2.1 % (0.0-4.3) 04/09/19 04:28 Baso % (Auto) 0.8 % (0.0-1.8) 04/09/19 04:28 Lymph # 1.0 K/mm3 (1.2-5.4) L 04/09/19 04:28 [place] # 0.8 K/mm3 (0.0-0.8) 04/09/19 04:28 Eos # 0.2 K/mm3 (0.0-0.4) 04/09/19 04:28 Baso # 0.1 K/mm3 (0.0-0.1) 04/09/19 04:28 Add Manual Diff Complete 03/28/19 18:10 Total Counted 100 03/28/19 18:10 Seg Neutrophils % 73.3 % (40.0-70.0) H 04/09/19 04:28 Seg Neuts % (Manual) 91.0 % (40.0-70.0) H 03/28/19 18:10 Band Neutrophils % 0 % 03/28/19 18:10 Lymphocytes % (Manual) 8.0 % (13.4-35.0) L 03/28/19 18:10 Reactive Lymphs % (Man) 0 % 03/28/19 18:10 Monocytes % (Manual) 1.0 % (0.0-7.3) 03/28/19 18:10 Eosinophils % (Manual) 0 % (0.0-4.3) 03/28/19 18:10 Basophils % (Manual) 0 % (0.0-1.8) 03/28/19 18:10 Metamyelocytes % 0 % 03/28/19 18:10 Myelocytes % 0 % 03/28/19 18:10 Promyelocytes % 0 % 03/28/19 18:10 Blast Cells % 0 % 03/28/19 18:10 Nucleated RBC % Not Reportable 03/28/19 18:10 Seg Neutrophils # 5.5 K/mm3 (1.8-7.7) 04/09/19 04:28 Seg Neutrophils # Man 22.6 K/mm3 (1.8-7.7) H 03/28/19 18:10 Band Neutrophils # 0.0 K/mm3 03/28/19 18:10 Lymphocytes # (Manual) 2.0 K/mm3 (1.2-5.4) 03/28/19 18:10 Abs React Lymphs (Man) 0.0 K/mm3 03/28/19 18:10 Monocytes # (Manual) 0.2 K/mm3 (0.0-0.8) 03/28/19 18:10 Eosinophils # (Manual) 0.0 K/mm3 (0.0-0.4) 03/28/19 18:10 Basophils # (Manual) 0.0 K/mm3 (0.0-0.1) 03/28/19 18:10 Metamyelocytes # 0.0 K/mm3 03/28/19 18:10 Myelocytes # 0.0 K/mm3 03/28/19 18:10 Promyelocytes # 0.0 K/mm3 03/28/19 18:10 Blast Cells # 0.0 K/mm3 03/28/19 18:10 WBC Morphology Not Reportable 03/28/19 18:10 Hypersegmented Neuts Not Reportable 03/28/19 18:10 Hyposegmented Neuts Not Reportable 03/28/19 18:10 Hypogranular Neuts Not Reportable 03/28/19 18:10 Smudge Cells Not Reportable 03/28/19 18:10 Toxic Granulation Not Reportable 03/28/19 18:10 Toxic Vacuolation Not Reportable 03/28/19 18:10 Dohle Bodies Not Reportable 03/28/19 18:10 Pelger-Huet Anomaly Not Reportable 03/28/19 18:10 Joyce Rods Not Reportable 03/28/19 18:10 Platelet Estimate Appears decreased 03/28/19 18:10 Clumped Platelets Not Reportable 03/28/19 18:10 Plt Clumps, EDTA Not Reportable 03/28/19 18:10 Large Platelets Not Reportable 03/28/19 18:10 Giant Platelets Not Reportable 03/28/19 18:10 Platelet Satelliting Not Reportable 03/28/19 18:10 Plt Morphology Comment Not Reportable 03/28/19 18:10 RBC Morphology Not Reportable 03/28/19 18:10 Dimorphic RBCs Not Reportable 03/28/19 18:10 Polychromasia Not Reportable 03/28/19 18:10 Hypochromasia Not Reportable 03/28/19 18:10 Poikilocytosis Not Reportable 03/28/19 18:10 Anisocytosis Few 03/28/19 18:10 Microcytosis Not Reportable 03/28/19 18:10 Macrocytosis Not Reportable 03/28/19 18:10 Spherocytes Not Reportable 03/28/19 18:10 Pappenheimer Bodies Not Reportable 03/28/19 18:10 Sickle Cells Not Reportable 03/28/19 18:10 Target Cells Not Reportable 03/28/19 18:10 Tear Drop Cells Not Reportable 03/28/19 18:10 Ovalocytes Not Reportable 03/28/19 18:10 Stomatocytes Few 03/26/19 Unknown Helmet Cells Not Reportable 03/28/19 18:10 [place] Bodies Not Reportable 03/28/19 18:10 [place] Rings Not Reportable 03/28/19 18:10 Samantha Cells Not Reportable 03/28/19 18:10 Bite Cells Not Reportable 03/28/19 18:10 Crenated Cell Not Reportable 03/28/19 18:10 Elliptocytes Not Reportable 03/28/19 18:10 Acanthocytes (Spur) Not Reportable 03/28/19 18:10 Rouleaux Not Reportable 03/28/19 18:10 Hemoglobin C Crystals Not Reportable 03/28/19 18:10 Schistocytes Not Reportable 03/28/19 18:10 Malaria parasites Not Reportable 03/28/19 18:10 Phil Bodies Not Reportable 03/28/19 18:10 Hem Pathologist Commnt No 03/28/19 18:10 PT 15.3 Sec. (12.2-14.9) H 03/29/19 11:48 INR 1.24 (0.87-1.13) H 03/29/19 11:48 APTT 26.6 Sec. (24.2-36.6) 03/28/19 12:00 Fibrinogen 226 mg/dl (211-480) 03/28/19 12:00 D-Dimer 4845.98 ng/mlDDU (0-234) H 03/28/19 12:00 Heparin Anti-Xa Level 0.23 U.I./ml (0.3-0.7) L 03/28/19 05:13 POC ABG pH 7.401 (7.35-7.45) 04/07/19 12:57 ABG pH 7.388 pH Units (7.350-7.450) 04/06/19 05:20 POC ABG pCO2 41.5 (35-45) 04/07/19 12:57 ABG pCO2 38.5 mm Hg 04/06/19 05:20 POC ABG pO2 107 (80-105) H 04/07/19 12:57 ABG pO2 104.0 mm Hg (80.0-90.0) H 04/06/19 05:20 POC ABG HCO3 25.7 (22-26 mml/L) 04/07/19 12:57 ABG HCO3 22.6 mmol/L (20.0-26.0) 04/06/19 05:20 POC ABG Total CO2 27 (23-27mmol/L) 04/07/19 12:57 POC ABG O2 Sat 98 04/07/19 12:57 ABG O2 Saturation 97.8 % (95.0-99.0) 04/06/19 05:20 ABG O2 Content 10.0 (0.0-44) 04/06/19 05:20 POC ABG Base Excess 1 ((-2) - (+3)mmol/L) 04/07/19 12:57 ABG Base Excess -2.1 mmol/L (-2.0-3.0) L 04/06/19 05:20 ABG Hemoglobin 7.3 gm/dl (14.0-18.0) L 04/06/19 05:20 ABG Carboxyhemoglobin 1.7 % (0.0-5.0) 04/06/19 05:20 ABG Methemoglobin 0.6 % (0.0-1.5) 04/06/19 05:20 Oxyhemoglobin 95.5 % (95.0-99.0) 04/06/19 05:20 FiO2 30 % 04/07/19 12:57 Sodium 138 mmol/L (137-145) 04/09/19 04:28 Potassium 3.5 mmol/L (3.6-5.0) L 04/09/19 04:28 Chloride 97.8 mmol/L (98-107) L 04/09/19 04:28 Carbon Dioxide 22 mmol/L (22-30) 04/09/19 04:28 Anion Gap 22 mmol/L 04/09/19 04:28 BUN 62 mg/dL (9-20) H 04/09/19 04:28 Creatinine 8.1 mg/dL (0.8-1.5) H 04/09/19 04:28 Estimated GFR 7 ml/min 04/09/19 04:28 BUN/Creatinine Ratio 8 % 04/09/19 04:28 Glucose 80 mg/dL (75-100) 04/09/19 04:28 POC Glucose 101 (70-105) 04/10/19 12:14 Lactic Acid 1.90 mmol/L (0.7-2.0) 03/21/19 21:31 Calcium 8.2 mg/dL (8.4-10.2) L 04/09/19 04:28 Ionized Calcium 3.7 mg/dL (4.8-5.6) L 03/30/19 12:09 Phosphorus 5.10 mg/dL (2.5-4.5) H 04/09/19 04:28 Magnesium 1.90 mg/dL (1.7-2.3) 03/31/19 15:07 Iron 26 ug/dL (49-181) L 04/02/19 05:03 TIBC 138 mcg/dL (250-450) L 04/02/19 05:03 Ferritin 607.0 ng/mL (13.0-400.0) H 04/02/19 05:03 Total Bilirubin 0.50 mg/dL (0.1-1.2) 03/31/19 08:20 Direct Bilirubin 0.4 mg/dL (0-0.2) H 03/31/19 08:20 Indirect Bilirubin 0.1 mg/dL 03/31/19 08:20 AST 60 units/L (5-40) H 03/31/19 08:20 ALT 30 units/L (7-56) 03/31/19 08:20 Alkaline Phosphatase 59 units/L (35-129) 03/31/19 08:20 Total Creatine Kinase 62 units/L (55-170) 04/07/19 05:40 CK-MB (CK-2) 54.3 ng/mL (0.0-4.0) H 03/17/19 07:16 CK-MB (CK-2) Rel Index 0.0 (0-4) 03/17/19 07:16 Troponin T 0.058 ng/mL (0.00-0.029) H 03/17/19 07:16 C-Reactive Protein 13.30 mg/dL (0.00-1.30) H 03/20/19 14:45 Total Protein 4.8 g/dL (6.3-8.2) L 03/31/19 08:20 Albumin 2.1 g/dL (3.9-5) L 03/31/19 08:20 Albumin/Globulin Ratio 0.8 % 03/31/19 08:20 Triglycerides 309 mg/dL (2-149) H 03/29/19 06:22 Cholesterol 88 mg/dL (50-199) 03/16/19 22:32 LDL Cholesterol Direct 10 mg/dL (50-130) L 03/16/19 22:32 HDL Cholesterol 7 mg/dL (40-59) L 03/16/19 22:32 Cholesterol/HDL Ratio 12.57 % 03/16/19 22:32 Vitamin B12 903.0 pg/mL (211-911) 04/02/19 05:03 Folate 8.05 ng/mL (7.3-26.0) 04/02/19 05:03 Procalcitonin 25.42 ng/mL (<0.15) 03/27/19 19:21 TSH 2.200 mlU/mL (0.270-4.200) 03/16/19 17:05 Free T4 0.72 ng/dL (0.76-1.46) L 03/16/19 17:05 PTH Intact 329.9 pg/mL (15-65) H 03/25/19 05:00 Urine Color Kathy (Yellow) 04/05/19 16:50 Urine Turbidity Cloudy (Clear) 04/05/19 16:50 Urine pH 5.0 (5.0-7.0) 04/05/19 16:50 Ur Specific [place] 1.018 (1.003-1.030) 04/05/19 16:50 Urine Protein 100 mg/dl mg/dL (Negative) 04/05/19 16:50 Urine Glucose (UA) Neg mg/dL (Negative) 04/05/19 16:50 Urine Ketones Neg mg/dL (Negative) 04/05/19 16:50 Urine Blood Lg (Negative) 04/05/19 16:50 Urine Nitrite Neg (Negative) 04/05/19 16:50 Urine Bilirubin Neg (Negative) 04/05/19 16:50 Urine Urobilinogen < 2.0 mg/dL (<2.0) 04/05/19 16:50 Ur Leukocyte Esterase Tr (Negative) 04/05/19 16:50 Urine WBC (Auto) 40.0 /HPF (0.0-6.0) H 04/05/19 16:50 Urine RBC (Auto) > 182.0 /HPF (0.0-6.0) 04/05/19 16:50 U Epithel Cells (Auto) < 1.0 /HPF (0-13.0) 03/17/19 16:05 Amorphous Crystals 1+ 04/05/19 16:50 Urine Mucus Few /HPF 03/17/19 16:05 Urine Sperm 2+ /HPF (PROJECT ECONOMIST) 03/17/19 16:05 Urine Eosinophils None seen (None Seen) 03/17/19 16:05 Urine Creatinine 106.6 mg/dL (0.1-20.0) H 03/17/19 16:05 Urine Sodium 95 mmol/L 03/17/19 16:05 Vancomycin Trough 11.5 ug/mL (5.0-20.0) 03/18/19 13:19 Random Vancomycin 16.6 ug/mL (0-40.0) 03/30/19 04:31 Salicylates < 0.3 mg/dL (2.8-20.0) L 03/16/19 17:05 Urine Opiates Screen Presumptive negative 03/17/19 16:05 Urine Methadone Screen Presumptive negative 03/17/19 16:05 Acetaminophen < 5.0 ug/mL (10.0-30.0) L 03/16/19 17:05 Ur Barbiturates Screen Presumptive negative 03/17/19 16:05 Ur Phencyclidine Scrn Presumptive negative 03/17/19 16:05 Ur Amphetamines Screen Presumptive negative 03/17/19 16:05 U Benzodiazepines Scrn Presumptive positive 03/17/19 16:05 Urine Cocaine Screen Presumptive negative 03/17/19 16:05 U Marijuana (THC) Screen Presumptive negative 03/17/19 16:05 Drugs of Abuse Note Disclamer 03/17/19 16:05 Plasma/Serum Alcohol < 0.01 % (0-0.07) 03/16/19 17:05 Hepatitis A IgM Ab Non-reactive (NonReactive) 03/18/19 13:18 Hep Bs Antigen Non-reactive (Negative) 03/18/19 13:18 Hep B Core IgM Ab Non-reactive (NonReactive) 03/18/19 13:18 Hepatitis C Antibody Non-reactive (NonReactive) 03/18/19 13:18 HIV 1&2 Antibody Rapid Non react (Non React) 03/17/19 11:52 HIV P24 Antigen Non react (Non React) 03/17/19 11:52 Influenza A (Rapid) Negative (Negative) 03/17/19 17:00 Influenza B (Rapid) Negative (Negative) 03/17/19 17:00 Group A Strep Rapid Negative (Negative) 03/17/19 17:00 Miscellaneous Test Flexitest 1 03/21/19 12:00 Blood Type A POSITIVE 04/02/19 16:34 Antibody Screen Negative 04/02/19 16:34 Crossmatch See Detail 04/02/19 16:34 Active Medications - Current Medications Current Medications: Generic Name Dose Route Start Last Admin Trade Name Freq PRN Reason Stop Dose Admin Acetaminophen 650 mg 04/02/19 23:26 04/06/19 00:22 Tylenol PO 650 mg Q4H PRN Administration Pain, Mild (1-3),temp>100.5 Albuterol 2.5 mg 03/29/19 13:08 Proventil IH Q4HRT PRN Shortness Of Breath Bacitracin 1 applic 04/09/19 02:43 04/09/19 03:47 Antibiotic Oint TP 1 applic PRN PRN Administration upper lip sore/open Bumetanide 2 mg 04/10/19 18:00 Bumex IV BID@0600,1800 PAOLO Calcium Acetate 1,334 mg 03/31/19 14:00 04/10/19 13:06 Phoslo PO Not Given TID PAOLO Dextrose 50 gm 03/19/19 18:39 03/26/19 23:26 D50w (25gm) Vial IV 50 gm PRN PRN Administration Hypoglycemia Epoetin Jet 20,000 unit 03/31/19 10:15 04/06/19 10:41 Procrit SUB-Q 20,000 unit NEYMAR PRN Administration hemodialysis Hydrophilic Ointment 1 applic 03/16/19 15:50 Vaseline Lip Therapy TP Q2HR PRN Dry Lips Sodium Chloride 100 mls @ 999 mls/hr 04/09/19 07:02 Nacl 0.9% IV NEYMAR PRN Hypotension Amiodarone HCl 900 mg/ 500 mls @ 33.333 mls/hr 04/10/19 01:00 04/10/19 07:00 Dextrose IV 0.5 mg/min DIRECT PAOLO 16.667 mls/hr Infusion Protocol 1 MG/MIN Dextrose/Sodium Chloride 1,000 mls @ 75 mls/hr 04/10/19 11:00 04/10/19 11:00 D5/0.45ns IV 75 mls/hr DIRECT PAOLO Administration Metoprolol Tartrate 5 mg 04/10/19 14:00 04/10/19 13:06 Lopressor IV 5 mg TID PAOLO Administration Multi-Ingred Cream/Lotion/Oil/Oint 1 applic 03/16/19 15:50 03/19/19 20:10 Artificial Tears Ophth Oint OU 1 applic Q4HR PRN Administration Dry Eye(s) Ondansetron HCl 4 mg 03/16/19 22:21 04/06/19 23:50 Zofran IV 4 mg Q8H PRN Administration Nausea And Vomiting Pantoprazole Sodium 40 mg 04/04/19 22:00 04/10/19 10:00 Protonix IV 40 mg BID PAOLO Administration Paricalcitol 2 mcg 03/30/19 10:00 04/10/19 10:00 Zemplar IV 2 mcg DAILY PAOLO Administration Nutrition/Malnutrition Assess - Dietary Evaluation Nutrition/Malnutrition Findings: Nutrition Notes Start: 03/17/19 14:22 Freq: Status: Active Protocol: Document 04/09/19 12:59 LM (Rec: 04/09/19 13:02 LM [id number]) Nutrition Notes Initial or Follow up Reassessment Current Diagnosis Acute Kidney Injury Other Pertinent Diagnosis on HD, Septic shock,Multiple organ failure, encephalopathy, rhabdomyolysis Current Diet Nepro with Carbsteady at 55ml/ hr Labs/Tests K 3.1 BUN 8 Cr 0.7 BG 101 Pertinent Medications Reviewed Height 6 ft Weight 148.5 kg [place] Body Weight (kg) 80.90 BMI 44.4 Subjective/Other Information Pt extubated. Pt getting HD at time of visit. TF not running . Percent of energy/protein needs met: 0%/0% Burn Absent Trauma Absent Minimum of two criteria No #1 Nutrition Diagnosis Inadequate oral intake Diagnosis Progress(for reassessment Continues documentation) Is patient on ventilator? No Is Patient Ambulatory and/or Out of Bed No REE-([place]-confined to bed) 2892.144 Kcal/Kg value to use for calculation 14 Approximate Energy Requirements Using 2079 kcal/Kg Calculation Used for Recommendations Kcal/kg Additional Notes Protein: 138-173g (1.2-1.5g/kg adjBW 115 kg) Fluids:1 ml/kcal or per MD Nutrition Intervention Change Diet Order: Diet advancement when medically feasible Goal #1 Diet advancement Anticipated Discharge Needs: Unable to determine at this time Follow-Up By: 04/11/19 Additional Comments F/U for diet advancement/POC
[2019-04-10] MEDS: BUMETANIDE 2.5 MG/10 ML VIAL IV SCH (19:49)
--- NOTE | 2019-04-10 21:12 | XRay Report ---
ABDOMEN 1 VIEW(S) 04/10/2019 8:25 PM INDICATION / CLINICAL INFORMATION: Dobhoff placement. COMPARISON: None available. FINDINGS: The tip of a weighted feeding tube projects over the pyloric portion of stomach/proximal duodenum. Signer Name: Luís Apple MD Signed: 04/10/2019 9:08 PM Workstation Name: [id number]
[2019-04-11] MEDS: BACITRACIN ZINC OINT 28.4 GM TP PRN (00:20)
[2019-04-11] MEDS ORDERED: AMIODARONE 900 MG in DEXTROSE 5% IN WATER 482 ML IV SCH (01:00)
[2019-04-11] MEDS: D5W/0.45% NACL 1,000 ML IV SCH (02:07)
[2019-04-11 05:33] LABS: Hematocrit 27.6 % (35.5-45.6); Hemoglobin 8.9 gm/dl (11.8-15.2); Mean Corpuscular HGB Conc 32 % (32-34); Mean Corpuscular Volume 95 fl (84-94); Platelet Count 177 K/mm3 (140-440); Red Blood Count 2.91 M/mm3 (3.65-5.03); Red Cell Distribution Width 17.5 % (13.2-15.2)
[2019-04-11] MEDS: BUMETANIDE 2.5 MG/10 ML VIAL IV SCH ×2 (06:07→17:45)
[2019-04-11 07:04] LABS: BUN/Creatinine Ratio TNR; Blood Urea Nitrogen TNR mg/dL (9-20)
[2019-04-11 07:05] LABS: Alanine Aminotransferase TNR units/L (7-56); Albumin TNR g/dL (3.9-5); Calcium TNR mg/dL (8.4-10.2)
[2019-04-11 07:06] LABS: Hemolysis Index TNR
--- NOTE | 2019-04-11 07:22 | Hem/Onc Progress Note ---
Assessment and Plan 1. h/o Anemia. The patient has history of bleeding. 2. rt Internal jugular partial thrombosis. The patient was started on heparin. This has been held due to bleeding 3. Gastrointestinal bleed. 4. h/o Elevated creatinine kinase. 5. h/o Low calcium. 6. h/o Thrombocytopenia. 7. h/o Renal failure. 8. h/o Intubation. 9. s/p Transfusion support. 10. Leukocytosis. At this time, supportive care may help the patient. The patient's platelet was low at admission. Urine toxicology was negative. awake extubated dvt - off anticoagulation - due to bleeding platelet - > 100 s/p iv iron trial - Patient Problems (1) DVT (deep venous thrombosis) Current Visit: Yes Status: Acute Subjective Date of service: 04/11/19 Principal diagnosis: anemia - DVT neck IJ Interval history: awake - NG feed - on amiodarone for cardiac issues Objective - Exam Narrative Exam: Pain - none now General appearance - awake - extubated Performance status limited self care Eyes - no icterus ENT - extubated LNs cervical not palpable Neck - no LN Respiratory Normal Breath sounds - CTA anteriorly CVS S1 S2 + Extremities edema + General GI Soft Rectal deferred male - deferred Skin warm Musculoskeletal awake Neurologically awake - Constitutional Vitals: Last Vital Signs Temp 99.4 F 04/11/19 04:00 Pulse 137 H 04/11/19 06:00 Resp 36 H 04/11/19 06:00 BP 166/85 04/11/19 06:00 Pulse Ox 94 04/11/19 06:00 - Labs Lab Results: Laboratory Results - last 24 hr 04/10/19 04/10/19 04/11/19 12:14 18:15 00:25 WBC RBC Hgb Hct MCV MCH MCHC RDW Plt Count Sodium Potassium Chloride Carbon Dioxide Anion Gap BUN Creatinine Estimated GFR BUN/Creatinine Ratio Glucose POC Glucose 101 109 H 114 H Calcium Total Bilirubin AST ALT Alkaline Phosphatase Total Protein Albumin Albumin/Globulin Ratio 04/11/19 04/11/19 04/11/19 04:16 04:16 06:47 WBC 11.5 H RBC 2.91 L Hgb 8.9 L Hct 27.6 L MCV 95 H MCH 31 MCHC 32 RDW 17.5 H Plt Count 177 Sodium TNR Potassium TNR Chloride TNR Carbon Dioxide TNR Anion Gap TNR BUN TNR Creatinine TNR Estimated GFR TNR BUN/Creatinine Ratio TNR Glucose TNR POC Glucose 106 H Calcium TNR Total Bilirubin TNR AST TNR ALT TNR Alkaline Phosphatase TNR Total Protein TNR Albumin TNR Albumin/Globulin Ratio TNR Medications & Allergies - Medications Allergies/Adverse Reactions: Allergies No Known Allergies Allergy (Unverified 03/16/19 17:17) Home Medications: Home Medications Medication Instructions Recorded Confirmed Last Taken Type Unobtainable 03/18/19 03/18/19 Unknown History Active Medications: Generic Name Dose Route Start Last Admin Trade Name Freq PRN Reason Stop Dose Admin Acetaminophen 650 mg 04/02/19 23:26 04/06/19 00:22 Tylenol PO 650 mg Q4H PRN Administration Pain, Mild (1-3),temp>100.5 Albuterol 2.5 mg 03/29/19 13:08 Proventil IH Q4HRT PRN Shortness Of Breath Bacitracin 1 applic 04/09/19 02:43 04/11/19 00:20 Antibiotic Oint TP 1 applic PRN PRN Administration upper lip sore/open Bumetanide 2 mg 04/10/19 18:00 04/11/19 06:07 Bumex IV 2 mg BID@0600,1800 PAOLO Administration Calcium Acetate 1,334 mg 03/31/19 14:00 04/10/19 21:46 Phoslo PO 1,334 mg TID PAOLO Administration Dextrose 50 gm 03/19/19 18:39 03/26/19 23:26 D50w (25gm) Vial IV 50 gm PRN PRN Administration Hypoglycemia Epoetin Jet 20,000 unit 03/31/19 10:15 04/06/19 10:41 Procrit SUB-Q 20,000 unit NEYMAR PRN Administration hemodialysis Hydrophilic Ointment 1 applic 03/16/19 15:50 Vaseline Lip Therapy TP Q2HR PRN Dry Lips Sodium Chloride 100 mls @ 999 mls/hr 04/09/19 07:02 Nacl 0.9% IV NEYMAR PRN Hypotension Amiodarone HCl 900 mg/ 500 mls @ 16.667 mls/hr 04/11/19 01:00 Dextrose IV DIRECT PAOLO 0.5 MG/MIN Lansoprazole 30 mg 04/11/19 10:00 Prevacid Solutab FEEDTUBE BID PAOLO Metoprolol Tartrate 5 mg 04/10/19 14:00 04/10/19 20:17 Lopressor IV 5 mg TID PAOLO Administration Multi-Ingred Cream/Lotion/Oil/Oint 1 applic 03/16/19 15:50 03/19/19 20:10 Artificial Tears Ophth Oint OU 1 applic Q4HR PRN Administration Dry Eye(s) Ondansetron HCl 4 mg 03/16/19 22:21 04/06/19 23:50 Zofran IV 4 mg Q8H PRN Administration Nausea And Vomiting Paricalcitol 2 mcg 03/30/19 10:00 04/10/19 10:00 Zemplar IV 2 mcg DAILY PAOLO Administration
[2019-04-11] MEDS: METOPROLOL TARTRATE 5 MG/5 ML INJ IV SCH ×4 (07:58→23:37)
[2019-04-11 09:58] LABS: Calcium 8.9 mg/dL (8.4-10.2)
[2019-04-11] MEDS: CALCIUM ACETATE 667 MG CAP PO SCH ×3 (10:03→20:51)
[2019-04-11] MEDS: LANSOPRAZOLE 30 MG SOLUTAB FEEDTUBE SCH ×2 (10:03→21:00)
[2019-04-11] MEDS: PARICALCITOL 2 MCG/1 ML INJ IV SCH (10:04)
--- NOTE | 2019-04-11 10:15 | Progress Note ---
Assessment and Plan 1. Acute kidney injury: Vasomotor RUBEN in the setting of shock / volume depletion / Rhabdo. Baseline renal function is unknown. CT abdomen was negative for obstructive nephropathy. Monitor renal function. Renal prognosis is guarded. Avoid nephrotoxic agents. Meds dosage based on GFR. Patient was started on hemodialysis on 03/18/19 due to worsening metabolic acidosis and hyperkalemia. Hemodialysis: 03/18, 03/19, 03/20, 03/22, 03/23, 03/24, 03/26, 03/28, 03/29, 03/31, 04/02, 04/04, 04/06, 04/09, 04/11. 2. FEN: Hyperkalemia, improved. Hyponatremia, improved. Metabolic acidosis, on maintenance HD. Volume overload, UF with HD as tolerated. Hypocalcemia, likely multifactorial. On Phoslo and Zemplar. Monitor lytes. 3. Septic shock: Followed by ID. Currently off pressors. 4. Rhabdomyolysis: Improved. 5. A.fib with RVR: Amiodarone drip. Followed by Cards. 6. Respiratory failure: Extubated. 7. Severe anemia: S/p PRBC. On Epogen. 8. Elevated transaminases. 9. Encephalopathy. Examination: General appearance: well-developed, appears stated age, obese, NG tube noted HEENT: Atraumatic EYES: Pupils reacting to light Neck: supple Respiratory: CTAB, decreased breath sounds Cardiology: irregular, S1S2 heard, no murmur Gastrointestinal: no tenderness, obese, BS heard Integumentary: no rash noted Neurologic: alert, barely able to move extremities, confused Ext: 1+ edema of all 4 extremities : condom catheter, scrotal edema noted Hemodialysis access: R IJ temp catheter Subjective Date of service: 04/11/19 Principal diagnosis: anemia - DVT neck IJ Interval history: Patient was seen and examined at the bedside. Objective - Vital Signs Vital signs: Vital Signs - 12hr 04/10/19 04/10/19 04/11/19 22:28 23:00 00:00 Temperature Pulse Rate 87 91 H 97 H Pulse Rate [ 87 From Monitor] Respiratory 35 H 42 H 32 H Rate Blood Pressure 150/87 150/87 147/87 O2 Sat by Pulse 98 98 94 Oximetry 04/11/19 04/11/19 04/11/19 00:29 01:00 02:00 Temperature 99.6 F Pulse Rate 136 H 86 Pulse Rate [ From Monitor] Respiratory 31 H 34 H Rate Blood Pressure 152/74 137/89 O2 Sat by Pulse 98 95 Oximetry 04/11/19 04/11/19 04/11/19 03:00 04:00 05:00 Temperature 99.4 F Pulse Rate 132 H 158 H 134 H Pulse Rate [ 124 H From Monitor] Respiratory 35 H 36 H 29 H Rate Blood Pressure 147/81 161/77 189/78 O2 Sat by Pulse 95 96 94 Oximetry 04/11/19 04/11/19 04/11/19 06:00 07:00 07:58 Temperature Pulse Rate 137 H 139 H 147 H Pulse Rate [ From Monitor] Respiratory 36 H 38 H Rate Blood Pressure 166/85 142/82 165/100 O2 Sat by Pulse 94 97 Oximetry 04/11/19 04/11/19 08:00 08:10 Temperature 100.4 F H Pulse Rate 98 H Pulse Rate [ 143 H From Monitor] Respiratory 32 H Rate Blood Pressure 151/88 O2 Sat by Pulse 97 97 Oximetry - Lab 04/11/19 04:16 04/11/19 09:21 Most recent lab results ABG pH 7.388 pH Units (7.350-7.450) 04/06/19 05:20 ABG pCO2 38.5 mm Hg 04/06/19 05:20 ABG pO2 104.0 mm Hg (80.0-90.0) H 04/06/19 05:20 ABG HCO3 22.6 mmol/L (20.0-26.0) 04/06/19 05:20 ABG O2 Saturation 97.8 % (95.0-99.0) 04/06/19 05:20 Calcium 8.9 mg/dL (8.4-10.2) 04/11/19 09:21 Phosphorus 5.10 mg/dL (2.5-4.5) H 04/09/19 04:28 Magnesium 1.90 mg/dL (1.7-2.3) 03/31/19 15:07 Urine Creatinine 106.6 mg/dL (0.1-20.0) H 03/17/19 16:05 Urine Sodium 95 mmol/L 03/17/19 16:05 Medications & Allergies - Medications Allergies/Adverse Reactions: Allergies No Known Allergies Allergy (Unverified 03/16/19 17:17) Home Medications: Home Medications Medication Instructions Recorded Confirmed Last Taken Type Unobtainable 03/18/19 03/18/19 Unknown History Active Medications: Generic Name Dose Route Start Last Admin Trade Name Freq PRN Reason Stop Dose Admin Acetaminophen 650 mg 04/02/19 23:26 04/06/19 00:22 Tylenol PO 650 mg Q4H PRN Administration Pain, Mild (1-3),temp>100.5 Albuterol 2.5 mg 03/29/19 13:08 Proventil IH Q4HRT PRN Shortness Of Breath Bacitracin 1 applic 04/09/19 02:43 04/11/19 00:20 Antibiotic Oint TP 1 applic PRN PRN Administration upper lip sore/open Bumetanide 2 mg 04/10/19 18:00 04/11/19 06:07 Bumex IV 2 mg BID@0600,1800 PAOLO Administration Calcium Acetate 1,334 mg 03/31/19 14:00 04/11/19 10:03 Phoslo PO 1,334 mg TID PAOLO Administration Dextrose 50 gm 03/19/19 18:39 03/26/19 23:26 D50w (25gm) Vial IV 50 gm PRN PRN Administration Hypoglycemia Epoetin Jet 20,000 unit 03/31/19 10:15 04/06/19 10:41 Procrit SUB-Q 20,000 unit NEYMAR PRN Administration hemodialysis Hydrophilic Ointment 1 applic 03/16/19 15:50 Vaseline Lip Therapy TP Q2HR PRN Dry Lips Sodium Chloride 100 mls @ 999 mls/hr 04/09/19 07:02 Nacl 0.9% IV NEYMAR PRN Hypotension Amiodarone HCl 900 mg/ 500 mls @ 16.667 mls/hr 04/11/19 01:00 Dextrose IV DIRECT PAOLO 0.5 MG/MIN Lansoprazole 30 mg 04/11/19 10:00 04/11/19 10:03 Prevacid Solutab FEEDTUBE 30 mg BID PAOLO Administration Metoprolol Tartrate 5 mg 04/10/19 14:00 04/11/19 07:58 Lopressor IV 5 mg TID PAOLO Administration Multi-Ingred Cream/Lotion/Oil/Oint 1 applic 03/16/19 15:50 03/19/19 20:10 Artificial Tears Ophth Oint OU 1 applic Q4HR PRN Administration Dry Eye(s) Ondansetron HCl 4 mg 03/16/19 22:21 04/06/19 23:50 Zofran IV 4 mg Q8H PRN Administration Nausea And Vomiting Paricalcitol 2 mcg 03/30/19 10:00 04/11/19 10:04 Zemplar IV 2 mcg DAILY PAOLO Administration
--- NOTE | 2019-04-11 10:45 | Progress Note ---
Assessment and Plan DHT has been inserted. Optimize HR - resume PO amio 400mg TID and d/c IV amio after 2nd PO dose. Increase IV lopressor to 5mg Q6H. No systemic AC regarding AFib in setting of anemia, thrombocytopenia, GI bleed. Continue supportive measures. Can consider ischemic evaluation if/when medically stabilized. The patient has been seen in conjunction with Dr. Rojas who agrees with the assessment and plan of care. - Patient Problems (1) Cardiopulmonary arrest Current Visit: Yes Status: Acute (2) Acute respiratory failure Current Visit: Yes Status: Acute (3) Paroxysmal atrial fibrillation with RVR Current Visit: Yes Status: Acute (4) SVT (supraventricular tachycardia) Current Visit: Yes Status: Acute (5) Torsades de pointes Current Visit: Yes Status: Acute (6) Ventricular tachycardia Current Visit: Yes Status: Acute (7) Encephalopathy Current Visit: Yes Status: Acute (8) Septic shock Current Visit: Yes Status: Acute (9) Aspiration pneumonia Current Visit: Yes Status: Acute (10) Meningitis Current Visit: Yes Status: Suspected (11) Cellulitis Current Visit: Yes Status: Acute (12) Acute renal failure Current Visit: Yes Status: Acute (13) GI bleed Current Visit: Yes Status: Acute (14) Anemia Current Visit: Yes Status: Acute (15) Thrombocytopenia Current Visit: Yes Status: Acute (16) DVT (deep venous thrombosis) Current Visit: Yes Status: Acute Subjective Date of service: 04/11/19 Principal diagnosis: anemia - DVT neck IJ Interval history: pt alert, following some commands. in AFib with RVR HR 120s - 130s, amio gtt infusing. Objective Last Vital Signs Temp 100.4 F H 04/11/19 08:00 Pulse 154 H 04/11/19 10:00 Resp 44 H 04/11/19 10:00 BP 145/81 04/11/19 10:00 Pulse Ox 97 04/11/19 10:00 - Physical Examination General: No Apparent Distress HEENT: Positive: EOMI, Normocephaly, Mucus Membranes Moist Neck: Positive: neck supple, trachea midline Cardiac: Positive: irregularly irregular, S1/S2, Tachycardia Lungs: Positive: Decreased Breath Sounds Neuro: Positive: Grossly Intact, Other (Awake, responsive) Abdomen: Positive: Soft, Active Bowel Sounds. Negative: Tender /Rectal: Other (deferred) Skin: Positive: Clear. Negative: Rash Musculoskeletal: Normal Range of Motion Extremities: Present: normal - Labs and Meds Cardiac Enzymes 04/11/19 Range/Units 04:16 AST TNR CBC 04/11/19 Range/Units 04:16 WBC 11.5 H (4.5-11.0) K/mm3 RBC 2.91 L (3.65-5.03) M/mm3 Hgb 8.9 L (11.8-15.2) gm/dl Hct 27.6 L (35.5-45.6) % Plt Count 177 (140-440) K/mm3 Comprehensive Metabolic Panel 04/11/19 04/11/19 Range/Units 04:16 09:21 Sodium TNR 140 Potassium TNR 3.5 L Chloride TNR 100.2 Carbon Dioxide TNR 23 BUN TNR 45 H Creatinine TNR 6.0 H Glucose TNR 113 H Calcium TNR 8.9 AST TNR ALT TNR Alkaline Phosphatase TNR Total Protein TNR Albumin TNR - Imaging and Cardiology Echo: report reviewed ( EF 40-45%, impaired relaxation. ) - EKG Sinus rhythms and dysrhythmias: sinus rhythm - Allied health notes Allied health notes reviewed: RT
[2019-04-11] MEDS ORDERED: SODIUM CHLORIDE 0.9% 100 ML IV PRN (10:50)
[2019-04-11 10:55] LABS: Band Neutrophils # (Manual) 0.1 K/mm3; Total Cells Counted 100
[2019-04-11 10:57] LABS: Anisocytosis RARE; Platelet Estimate Consistent w Auto
[2019-04-11] MEDS: AMIODARONE 200 MG TAB PO SCH ×3 (11:30→20:51)
--- NOTE | 2019-04-11 12:08 | Progress Note ---
Assessment and Plan Cultures: 03/16/2019 sputum: salivary contamination 03/16/2019 Blood culture: no growth 03/17/2019 Urine culture no growth 03/17/2019 throat culture: no growth 03/26/2019 Blood culture: no growth 03/27/2019 Blood culture negative. 04/04/2019 blood culture NGTD 04/05/2019 urine culture: no growth Assessment: 43y/o male with possible psych history admitted on 03/16/2019 with: 1) Septic shock: Resolved. Fever after right IJ exchanged overwire on 03/27, fever is better; leukocytosis resolved. Fever source is unclear - suspect IJ DVT ?thrombophlebitis, other ?NMS ?sinusitis, ?drug fever. Brain MRI showed no acute intracranial abnormality, mild nonspecific chronic white matter changes, fluid throughout the sinuses and mastoid air cells. Venous US + right IJ DVT. Completed empiric Cefepime x 10 days on 04/06/2019. Initial septic shock - Possible Infectious etiology v/s possibility of N euroleptic Malignant Syndrome given psych history, high fever of 105F and extremely elevated CPK of >100K. Unclear if he was on any psych med. From ID standpoint, we will continue broad coverage for acute bacterial meningitis, tick borne illness, aspiration pneumonia. Blood culture negative UA with mild pyuria. HIV rapid negative. Strep A rapid ag negative. No obvious infectious source identified yet. 2) Low grade fever with increasing WBC: will obtain blood cultures and start IV abx. 3) Probable aspiration pneumonia, fluid overload, acute resp failure: on oxygen. Previously completed abx. 4) Acute encephalopathy: improving, awake, alert, calm. CT head showed diffuse cerebral edema ?artifact. 5) Acute renal failure: renally dosing all abx, now on iHD. 6) Elevated LFTs/shock liver: also likely elevated from Rhabdomyolysis. Viral hepatitis panel negative. LFTs improved. 7) Thrombocytopenia: platelet normalized. 8) Rhabdomyolysis: CK normalized. Recommendations: Low grade fever with increasing WBC. Will obtain blood cultures and start IV Cefepime and Vancomycin Continue supportive care and wound care Katherine Elizabeth MD, FACP [facility] ([facility] C: [phone] O: [phone] F: [phone] Subjective Date of service: 04/11/19 Principal diagnosis: anemia - DVT neck IJ Interval history: Appears more drowsy today. Low grade fevers +. Having multiple skin issues, superficial ulcerations with weeping, discussed with RN. Objective - Exam Narrative Exam: Physical Exam: Constitutional: drowsy, but can be awakened Head, Ears, Nose: Normocephalic, atraumatic. External ears, nose normal Eyes: Conjunctivae/corneas clear. No icterus. No ptosis. Neck: Supple, no meningeal signs. R IJ HD cath + Cardiovascular: S1, S2 normal. Respiratory: few rhonchi b/l, tachypneic GI: Soft, non-tender; bowel sounds normal. No peritoneal signs Musculoskeletal: anasarca+ pedal and scrotal edema + Skin: superficial excoriations, wounds with weeping Hem/Lymphatic: No palpable cervical or supraclavicular nodes. No lymphangitis Psych: awake, no agitation Neurological: drowsy, but can be awakened - Constitutional Vitals: Vital Signs Temp Pulse Resp BP Pulse Ox 100.4 F H 137 H 44 H 146/96 97 04/11/19 08:00 04/11/19 11:29 04/11/19 10:00 04/11/19 11:29 04/11/19 10:00 Temperature -Last 24 Hours Temperature 100.4 F Temperature 99.7 F Temperature 99.4 F Temperature 99.6 F Temperature 99.4 F Temperature 97.8 F - Labs CBC & Chem 7: 04/11/19 04:16 04/11/19 09:21 Labs: Abnormal lab results 04/10/19 04/11/19 04/11/19 Range/Units 18:15 00:25 04:16 WBC 11.5 H (4.5-11.0) K/mm3 RBC 2.91 L (3.65-5.03) M/mm3 Hgb 8.9 L (11.8-15.2) gm/dl Hct 27.6 L (35.5-45.6) % MCV 95 H (84-94) fl RDW 17.5 H (13.2-15.2) % Seg Neuts % (Manual) 71.0 H (40.0-70.0) % Monocytes % (Manual) 8.0 H (0.0-7.3) % Seg Neutrophils # Man 8.2 H (1.8-7.7) K/mm3 Monocytes # (Manual) 0.9 H (0.0-0.8) K/mm3 Potassium (3.6-5.0) mmol/L BUN (9-20) mg/dL Creatinine (0.8-1.5) mg/dL Glucose (75-100) mg/dL POC Glucose 109 H 114 H (70-105) 04/11/19 04/11/19 Range/Units 06:47 09:21 WBC (4.5-11.0) K/mm3 RBC (3.65-5.03) M/mm3 Hgb (11.8-15.2) gm/dl Hct (35.5-45.6) % MCV (84-94) fl RDW (13.2-15.2) % Seg Neuts % (Manual) (40.0-70.0) % Monocytes % (Manual) (0.0-7.3) % Seg Neutrophils # Man (1.8-7.7) K/mm3 Monocytes # (Manual) (0.0-0.8) K/mm3 Potassium 3.5 L (3.6-5.0) mmol/L BUN 45 H (9-20) mg/dL Creatinine 6.0 H (0.8-1.5) mg/dL Glucose 113 H (75-100) mg/dL POC Glucose 106 H (70-105)
[2019-04-11] MEDS ORDERED: VANCOMYCIN PHARMACY TO DOSE IV SCH (13:00)
[2019-04-11] MEDS ORDERED: VANCOMYCIN 2,000 MG in SODIUM CHLORIDE 0.9% 500 ML 500 ML IV ONE (16:00)
[2019-04-11] MEDS: CEFEPIME/NS 2 GM/100 ML 2 GM/100 ML BAG IV SCH (17:17)
--- NOTE | 2019-04-11 17:22 | Progress Note ---
Assessment and Plan Patients condition same.Patient resting on T tube. Patient sleeping at this time. No acute respiratory distress. Patient is on T tube, FIO2 28%. O2 saturation 95%.Patient afebrile today and has no leukocytosis. Patient waiting for placement. - Patient Problems (1) Acute respiratory failure Current Visit: Yes Status: Acute Plan to address problem: Patient placed on BIPAP 20/8, rate 25, FIO2 40%. Albuterol/atrovent aerosol treatments q 6 hours. Patient is on cepepime Continue Prevacid. Recommend DVT prophylaxis. SCDs (2) Altered mental status Current Visit: Yes Status: Acute Plan to address problem: Management as per primary care and neurology. (3) Atrial fibrillation with RVR Current Visit: Yes Status: Acute Plan to address problem: Management as per cardiology. (4) Cardiopulmonary arrest Current Visit: Yes Status: Acute Plan to address problem: Patient resucitated. Presently on BIPAP. (5) Acute renal failure Current Visit: Yes Status: Acute Plan to address problem: Management as per nephrology. (6) Aspiration pneumonia Current Visit: Yes Status: Acute Plan to address problem: Patient is on cepepime. (7) GI bleed Current Visit: Yes Status: Acute Plan to address problem: Management as per gastroenterology. Subjective Date of service: 04/11/19 Principal diagnosis: anemia - DVT neck IJ Interval history: Patient having some increased work of breathing. Patient presently on BIPAP 12/8, FIO2 40%, Rate 24%. O2 saturation 100%. Increasing IPAP to 20 to give pressure support. Patient running low grade fever and has some leukocytosis. Objective Vital Signs - 12hr 04/11/19 04/11/19 04/11/19 06:00 07:00 07:58 Temperature Pulse Rate 137 H 139 H 147 H Pulse Rate [ From Monitor] Respiratory 36 H 38 H Rate Blood Pressure 166/85 142/82 165/100 O2 Sat by Pulse 94 97 Oximetry O2 Sat by Pulse Oximetry [ Anterior Bilateral Throughout] 04/11/19 04/11/19 04/11/19 08:00 08:10 09:00 Temperature 100.4 F H Pulse Rate 98 H 139 H Pulse Rate [ 143 H From Monitor] Respiratory 32 H 39 H Rate Blood Pressure 151/88 137/89 O2 Sat by Pulse 97 97 96 Oximetry O2 Sat by Pulse Oximetry [ Anterior Bilateral Throughout] 04/11/19 04/11/19 04/11/19 10:00 11:00 11:29 Temperature Pulse Rate 154 H 118 H 137 H Pulse Rate [ From Monitor] Respiratory 44 H 42 H Rate Blood Pressure 145/81 145/81 146/96 O2 Sat by Pulse 97 96 Oximetry O2 Sat by Pulse Oximetry [ Anterior Bilateral Throughout] 04/11/19 04/11/19 04/11/19 12:00 12:20 12:25 Temperature 100.1 F H Pulse Rate 122 H 137 H 137 H Pulse Rate [ 143 H From Monitor] Respiratory 38 H 41 H Rate Blood Pressure 146/96 154/90 154/90 O2 Sat by Pulse 96 Oximetry O2 Sat by Pulse 95 Oximetry [ Anterior Bilateral Throughout] 04/11/19 04/11/19 04/11/19 12:30 12:45 13:00 Temperature Pulse Rate 129 H 124 H 141 H Pulse Rate [ From Monitor] Respiratory 40 H Rate Blood Pressure 156/93 160/88 147/95 O2 Sat by Pulse 97 Oximetry O2 Sat by Pulse Oximetry [ Anterior Bilateral Throughout] 04/11/19 04/11/19 04/11/19 13:15 13:30 13:45 Temperature Pulse Rate 133 H 136 H 131 H Pulse Rate [ From Monitor] Respiratory Rate Blood Pressure 143/95 151/94 146/88 O2 Sat by Pulse Oximetry O2 Sat by Pulse Oximetry [ Anterior Bilateral Throughout] 04/11/19 04/11/19 04/11/19 13:50 14:00 14:15 Temperature Pulse Rate 145 H 141 H 99 H Pulse Rate [ From Monitor] Respiratory 26 H 25 H Rate Blood Pressure 146/88 140/78 O2 Sat by Pulse 98 99 Oximetry O2 Sat by Pulse Oximetry [ Anterior Bilateral Throughout] 04/11/19 04/11/19 04/11/19 14:30 14:45 15:00 Temperature Pulse Rate 135 H 138 H 140 H Pulse Rate [ From Monitor] Respiratory 20 Rate Blood Pressure 157/99 156/75 157/99 O2 Sat by Pulse 100 Oximetry O2 Sat by Pulse Oximetry [ Anterior Bilateral Throughout] 04/11/19 04/11/19 04/11/19 15:15 15:30 15:45 Temperature Pulse Rate 139 H 133 H 145 H Pulse Rate [ From Monitor] Respiratory Rate Blood Pressure 145/82 138/90 148/97 O2 Sat by Pulse Oximetry O2 Sat by Pulse Oximetry [ Anterior Bilateral Throughout] 04/11/19 04/11/19 04/11/19 15:54 16:00 16:01 Temperature Pulse Rate 141 H 137 H Pulse Rate [ 143 H From Monitor] Respiratory 32 H 29 H Rate Blood Pressure 148/97 145/92 O2 Sat by Pulse 100 Oximetry O2 Sat by Pulse Oximetry [ Anterior Bilateral Throughout] 04/11/19 04/11/19 16:15 17:02 Temperature Pulse Rate 104 H 149 H Pulse Rate [ From Monitor] Respiratory 27 H Rate Blood Pressure 131/92 O2 Sat by Pulse 99 Oximetry O2 Sat by Pulse Oximetry [ Anterior Bilateral Throughout] Constitutional: no acute distress, alert Eyes: non-icteric ENT: oropharynx moist, other ( ulcers over his upper lip) Neck: supple, no lymphadenopathy, no JVD, other (large neck circumference, RIJ trialysis catheter) Effort: mildly labored Ascultation: Bilateral: diminished breath sounds, rales, rhonchi Percussion: Bilateral: not dull Cardiovascular: regular rate and rhythm, other ( S1,S2, no murmurs) Gastrointestinal: normoactive bowel sounds, soft, non-tender Integumentary: normal, other (blisters with some weeping over the extremities) Extremities: no cyanosis, pink and warm, pulses normal, no ischemia or petechiae, edema Neurologic: normal mental status, non-focal exam (grossly), pupils equal and round, CN II-XII normal, other (obeys commands, globally weak) Psychiatric: mood appropriate, affect normal CBC and BMP: 04/11/19 04:16 04/11/19 09:21 ABG, PT/INR, D-dimer: ABG POC ABG pH 7.401 (7.35-7.45) 04/07/19 12:57 ABG pH 7.388 pH Units (7.350-7.450) 04/06/19 05:20 POC ABG pCO2 41.5 (35-45) 04/07/19 12:57 ABG pCO2 38.5 mm Hg 04/06/19 05:20 POC ABG pO2 107 (80-105) H 04/07/19 12:57 ABG pO2 104.0 mm Hg (80.0-90.0) H 04/06/19 05:20 POC ABG HCO3 25.7 (22-26 mml/L) 04/07/19 12:57 POC ABG Total CO2 27 (23-27mmol/L) 04/07/19 12:57 POC ABG O2 Sat 98 04/07/19 12:57 ABG O2 Saturation 97.8 % (95.0-99.0) 04/06/19 05:20 PT/INR, D-dimer PT 15.3 Sec. (12.2-14.9) H 03/29/19 11:48 INR 1.24 (0.87-1.13) H 03/29/19 11:48 D-Dimer 4845.98 ng/mlDDU (0-234) H 03/28/19 12:00 Abnormal lab findings: Abnormal Labs 03/16/19 03/16/19 03/16/19 15:32 16:03 16:05 WBC 27.0 H RBC 5.55 H Hgb 15.7 H Hct 47.1 H MCV RDW Plt Count 75 L Lymph % (Auto) [place] % (Auto) Lymph # Seg Neutrophils % Seg Neuts % (Manual) 85.0 H Lymphocytes % (Manual) 2.0 L Monocytes % (Manual) Nucleated RBC % Seg Neutrophils # Seg Neutrophils # Man 23.0 H Lymphocytes # (Manual) 0.5 L Monocytes # (Manual) PT INR D-Dimer Heparin Anti-Xa Level POC ABG pH ABG pH POC ABG pCO2 POC ABG pO2 ABG pO2 ABG HCO3 ABG O2 Saturation ABG Base Excess ABG Hemoglobin Oxyhemoglobin Sodium 127 L Potassium Chloride 87.8 L Carbon Dioxide 17 L BUN 49 H Creatinine 5.8 H Glucose 150 H POC Glucose 118 H Lactic Acid Calcium 6.6 L Ionized Calcium Phosphorus Magnesium 1.10 L Iron TIBC Ferritin Total Bilirubin Direct Bilirubin AST ALT Alkaline Phosphatase Total Creatine Kinase 88579 H CK-MB (CK-2) Troponin T C-Reactive Protein Total Protein Albumin Triglycerides LDL Cholesterol Direct HDL Cholesterol Free T4 PTH Intact Urine WBC (Auto) Urine Creatinine Salicylates Acetaminophen Crossmatch 03/16/19 03/16/19 03/16/19 16:59 17:05 17:05 WBC RBC Hgb Hct MCV RDW Plt Count Lymph % (Auto) [place] % (Auto) Lymph # Seg Neutrophils % Seg Neuts % (Manual) Lymphocytes % (Manual) Monocytes % (Manual) Nucleated RBC % Seg Neutrophils # Seg Neutrophils # Man Lymphocytes # (Manual) Monocytes # (Manual) PT INR D-Dimer Heparin Anti-Xa Level POC ABG pH 7.297 L ABG pH POC ABG pCO2 33.0 L POC ABG pO2 ABG pO2 ABG HCO3 ABG O2 Saturation ABG Base Excess ABG Hemoglobin Oxyhemoglobin Sodium Potassium Chloride Carbon Dioxide BUN Creatinine Glucose POC Glucose Lactic Acid Calcium Ionized Calcium Phosphorus Magnesium Iron TIBC Ferritin Total Bilirubin Direct Bilirubin AST ALT Alkaline Phosphatase Total Creatine Kinase 05562 H CK-MB (CK-2) 83.1 H Troponin T C-Reactive Protein Total Protein Albumin Triglycerides LDL Cholesterol Direct HDL Cholesterol Free T4 0.72 L PTH Intact Urine WBC (Auto) Urine Creatinine Salicylates Acetaminophen Crossmatch 03/16/19 03/16/19 03/16/19 17:05 17:05 17:05 WBC RBC Hgb Hct MCV RDW Plt Count Lymph % (Auto) [place] % (Auto) Lymph # Seg Neutrophils % Seg Neuts % (Manual) Lymphocytes % (Manual) Monocytes % (Manual) Nucleated RBC % Seg Neutrophils # Seg Neutrophils # Man Lymphocytes # (Manual) Monocytes # (Manual) PT INR D-Dimer Heparin Anti-Xa Level POC ABG pH ABG pH POC ABG pCO2 POC ABG pO2 ABG pO2 ABG HCO3 ABG O2 Saturation ABG Base Excess ABG Hemoglobin Oxyhemoglobin Sodium Potassium Chloride Carbon Dioxide BUN Creatinine Glucose POC Glucose Lactic Acid 5.10 H* Calcium Ionized Calcium Phosphorus Magnesium Iron TIBC Ferritin Total Bilirubin Direct Bilirubin AST ALT Alkaline Phosphatase Total Creatine Kinase CK-MB (CK-2) Troponin T C-Reactive Protein Total Protein Albumin Triglycerides LDL Cholesterol Direct HDL Cholesterol Free T4 PTH Intact Urine WBC (Auto) Urine Creatinine Salicylates < 0.3 L Acetaminophen < 5.0 L Crossmatch 03/16/19 03/16/19 03/16/19 17:05 17:05 20:35 WBC RBC Hgb Hct MCV RDW Plt Count Lymph % (Auto) [place] % (Auto) Lymph # Seg Neutrophils % Seg Neuts % (Manual) Lymphocytes % (Manual) Monocytes % (Manual) Nucleated RBC % Seg Neutrophils # Seg Neutrophils # Man Lymphocytes # (Manual) Monocytes # (Manual) PT 15.9 H INR 1.30 H D-Dimer Heparin Anti-Xa Level POC ABG pH ABG pH POC ABG pCO2 POC ABG pO2 ABG pO2 ABG HCO3 ABG O2 Saturation ABG Base Excess ABG Hemoglobin Oxyhemoglobin Sodium Potassium Chloride Carbon Dioxide BUN Creatinine Glucose POC Glucose Lactic Acid 3.30 H* Calcium Ionized Calcium Phosphorus Magnesium Iron TIBC Ferritin Total Bilirubin 6.20 H Direct Bilirubin 5.9 H AST 800 H ALT 120 H Alkaline Phosphatase Total Creatine Kinase CK-MB (CK-2) Troponin T C-Reactive Protein Total Protein 4.4 L Albumin 2.4 L Triglycerides LDL Cholesterol Direct HDL Cholesterol Free T4 PTH Intact Urine WBC (Auto) Urine Creatinine Salicylates Acetaminophen Crossmatch 03/16/19 03/16/19 03/16/19 21:45 22:32 Unknown WBC RBC Hgb Hct MCV RDW Plt Count Lymph % (Auto) [place] % (Auto) Lymph # Seg Neutrophils % Seg Neuts % (Manual) Lymphocytes % (Manual) Monocytes % (Manual) Nucleated RBC % Seg Neutrophils # Seg Neutrophils # Man Lymphocytes # (Manual) Monocytes # (Manual) PT INR D-Dimer Heparin Anti-Xa Level POC ABG pH ABG pH POC ABG pCO2 POC ABG pO2 ABG pO2 ABG HCO3 ABG O2 Saturation ABG Base Excess ABG Hemoglobin Oxyhemoglobin Sodium Potassium Chloride Carbon Dioxide BUN Creatinine Glucose POC Glucose Lactic Acid 3.30 H* 3.00 H* Calcium Ionized Calcium Phosphorus Magnesium Iron TIBC Ferritin Total Bilirubin Direct Bilirubin AST ALT Alkaline Phosphatase Total Creatine Kinase CK-MB (CK-2) Troponin T 0.047 H D C-Reactive Protein Total Protein Albumin Triglycerides 395 H LDL Cholesterol Direct 10 L HDL Cholesterol 7 L Free T4 PTH Intact Urine WBC (Auto) Urine Creatinine Salicylates Acetaminophen Crossmatch 03/17/19 03/17/19 03/17/19 03:45 03:45 03:45 WBC RBC Hgb Hct MCV RDW Plt Count Lymph % (Auto) [place] % (Auto) Lymph # Seg Neutrophils % Seg Neuts % (Manual) Lymphocytes % (Manual) Monocytes % (Manual) Nucleated RBC % Seg Neutrophils # Seg Neutrophils # Man Lymphocytes # (Manual) Monocytes # (Manual) PT INR D-Dimer Heparin Anti-Xa Level POC ABG pH ABG pH POC ABG pCO2 POC ABG pO2 ABG pO2 ABG HCO3 ABG O2 Saturation ABG Base Excess ABG Hemoglobin Oxyhemoglobin Sodium 131 L Potassium Chloride 88.9 L Carbon Dioxide BUN 53 H Creatinine 7.1 H Glucose POC Glucose Lactic Acid 4.10 H* Calcium 5.4 L* D Ionized Calcium Phosphorus 7.30 H Magnesium 1.60 L Iron TIBC Ferritin Total Bilirubin 5.90 H Direct Bilirubin AST 801 H ALT 109 H Alkaline Phosphatase Total Creatine Kinase 64397 H 86740 H CK-MB (CK-2) 41.5 H Troponin T 0.054 H C-Reactive Protein Total Protein 4.5 L Albumin 2.0 L Triglycerides LDL Cholesterol Direct HDL Cholesterol Free T4 PTH Intact Urine WBC (Auto) Urine Creatinine Salicylates Acetaminophen Crossmatch 03/17/19 03/17/19 03/17/19 05:47 07:16 07:16 WBC RBC Hgb Hct MCV RDW Plt Count Lymph % (Auto) [place] % (Auto) Lymph # Seg Neutrophils % Seg Neuts % (Manual) Lymphocytes % (Manual) Monocytes % (Manual) Nucleated RBC % Seg Neutrophils # Seg Neutrophils # Man Lymphocytes # (Manual) Monocytes # (Manual) PT INR D-Dimer Heparin Anti-Xa Level POC ABG pH 7.193 L ABG pH POC ABG pCO2 45.2 H POC ABG pO2 65 L ABG pO2 ABG HCO3 ABG O2 Saturation ABG Base Excess ABG Hemoglobin Oxyhemoglobin Sodium Potassium Chloride Carbon Dioxide BUN Creatinine Glucose POC Glucose Lactic Acid 5.50 H* Calcium Ionized Calcium Phosphorus Magnesium Iron TIBC Ferritin Total Bilirubin Direct Bilirubin AST ALT Alkaline Phosphatase Total Creatine Kinase 31521 H CK-MB (CK-2) 54.3 H Troponin T 0.058 H C-Reactive Protein Total Protein Albumin Triglycerides LDL Cholesterol Direct HDL Cholesterol Free T4 PTH Intact Urine WBC (Auto) Urine Creatinine Salicylates Acetaminophen Crossmatch 03/17/19 03/17/19 03/17/19 11:52 12:51 13:01 WBC RBC Hgb Hct MCV RDW Plt Count Lymph % (Auto) [place] % (Auto) Lymph # Seg Neutrophils % Seg Neuts % (Manual) Lymphocytes % (Manual) Monocytes % (Manual) Nucleated RBC % Seg Neutrophils # Seg Neutrophils # Man Lymphocytes # (Manual) Monocytes # (Manual) PT INR D-Dimer Heparin Anti-Xa Level POC ABG pH 7.154 L ABG pH POC ABG pCO2 34.3 L POC ABG pO2 73 L ABG pO2 ABG HCO3 ABG O2 Saturation ABG Base Excess ABG Hemoglobin Oxyhemoglobin Sodium Potassium Chloride Carbon Dioxide BUN Creatinine Glucose POC Glucose 60 L Lactic Acid 8.20 H* Calcium Ionized Calcium Phosphorus Magnesium Iron TIBC Ferritin Total Bilirubin Direct Bilirubin AST ALT Alkaline Phosphatase Total Creatine Kinase CK-MB (CK-2) Troponin T C-Reactive Protein Total Protein Albumin Triglycerides LDL Cholesterol Direct HDL Cholesterol Free T4 PTH Intact Urine WBC (Auto) Urine Creatinine Salicylates Acetaminophen Crossmatch 03/17/19 03/17/19 03/17/19 14:37 14:37 14:37 WBC 29.3 H RBC Hgb Hct MCV RDW 15.8 H Plt Count 45 L Lymph % (Auto) [place] % (Auto) Lymph # Seg Neutrophils % Seg Neuts % (Manual) 81.0 H Lymphocytes % (Manual) 1.0 L Monocytes % (Manual) 15.0 H Nucleated RBC % Seg Neutrophils # Seg Neutrophils # Man 23.7 H Lymphocytes # (Manual) 0.3 L Monocytes # (Manual) 4.4 H PT INR D-Dimer Heparin Anti-Xa Level POC ABG pH ABG pH POC ABG pCO2 POC ABG pO2 ABG pO2 ABG HCO3 ABG O2 Saturation ABG Base Excess ABG Hemoglobin Oxyhemoglobin Sodium Potassium Chloride Carbon Dioxide BUN Creatinine Glucose POC Glucose Lactic Acid 4.90 H* Calcium Ionized Calcium Phosphorus Magnesium Iron TIBC Ferritin Total Bilirubin Direct Bilirubin AST ALT Alkaline Phosphatase Total Creatine Kinase CK-MB (CK-2) Troponin T C-Reactive Protein 24.90 H Total Protein Albumin Triglycerides LDL Cholesterol Direct HDL Cholesterol Free T4 PTH Intact Urine WBC (Auto) Urine Creatinine Salicylates Acetaminophen Crossmatch 03/17/19 03/17/19 03/17/19 16:05 16:05 17:02 WBC RBC Hgb Hct MCV RDW Plt Count Lymph % (Auto) [place] % (Auto) Lymph # Seg Neutrophils % Seg Neuts % (Manual) Lymphocytes % (Manual) Monocytes % (Manual) Nucleated RBC % Seg Neutrophils # Seg Neutrophils # Man Lymphocytes # (Manual) Monocytes # (Manual) PT INR D-Dimer Heparin Anti-Xa Level POC ABG pH 7.183 L ABG pH POC ABG pCO2 POC ABG pO2 65 L ABG pO2 ABG HCO3 ABG O2 Saturation ABG Base Excess ABG Hemoglobin Oxyhemoglobin Sodium Potassium Chloride Carbon Dioxide BUN Creatinine Glucose POC Glucose Lactic Acid Calcium Ionized Calcium Phosphorus Magnesium Iron TIBC Ferritin Total Bilirubin Direct Bilirubin AST ALT Alkaline Phosphatase Total Creatine Kinase CK-MB (CK-2) Troponin T C-Reactive Protein Total Protein Albumin Triglycerides LDL Cholesterol Direct HDL Cholesterol Free T4 PTH Intact Urine WBC (Auto) 30.0 H Urine Creatinine 106.6 H Salicylates Acetaminophen Crossmatch 03/18/19 03/18/19 03/18/19 05:12 05:16 05:53 WBC RBC Hgb Hct MCV RDW Plt Count Lymph % (Auto) [place] % (Auto) Lymph # Seg Neutrophils % Seg Neuts % (Manual) Lymphocytes % (Manual) Monocytes % (Manual) Nucleated RBC % Seg Neutrophils # Seg Neutrophils # Man Lymphocytes # (Manual) Monocytes # (Manual) PT INR D-Dimer Heparin Anti-Xa Level POC ABG pH 7.257 L ABG pH POC ABG pCO2 31.6 L POC ABG pO2 69 L ABG pO2 ABG HCO3 ABG O2 Saturation ABG Base Excess ABG Hemoglobin Oxyhemoglobin Sodium Potassium Chloride Carbon Dioxide BUN Creatinine Glucose POC Glucose 141 H Lactic Acid 5.00 H* Calcium Ionized Calcium Phosphorus Magnesium Iron TIBC Ferritin Total Bilirubin Direct Bilirubin AST ALT Alkaline Phosphatase Total Creatine Kinase CK-MB (CK-2) Troponin T C-Reactive Protein Total Protein Albumin Triglycerides LDL Cholesterol Direct HDL Cholesterol Free T4 PTH Intact Urine WBC (Auto) Urine Creatinine Salicylates Acetaminophen Crossmatch 03/18/19 03/18/19 03/18/19 06:57 08:40 08:40 WBC 31.7 H RBC Hgb Hct MCV RDW 15.5 H Plt Count 35 L Lymph % (Auto) [place] % (Auto) Lymph # Seg Neutrophils % Seg Neuts % (Manual) Lymphocytes % (Manual) Monocytes % (Manual) Nucleated RBC % Seg Neutrophils # Seg Neutrophils # Man Lymphocytes # (Manual) Monocytes # (Manual) PT INR D-Dimer Heparin Anti-Xa Level POC ABG pH ABG pH POC ABG pCO2 POC ABG pO2 ABG pO2 ABG HCO3 ABG O2 Saturation ABG Base Excess ABG Hemoglobin Oxyhemoglobin Sodium 132 L Potassium 5.5 H D Chloride 88.5 L Carbon Dioxide 18 L BUN 71 H Creatinine 8.1 H Glucose 205 H POC Glucose Lactic Acid 5.00 H* Calcium 4.1 L* D Ionized Calcium Phosphorus Magnesium 2.40 H Iron TIBC Ferritin Total Bilirubin 7.50 H Direct Bilirubin AST 1088 H ALT 159 H Alkaline Phosphatase 190 H Total Creatine Kinase 687557 H CK-MB (CK-2) Troponin T C-Reactive Protein Total Protein 4.7 L Albumin 1.8 L Triglycerides LDL Cholesterol Direct HDL Cholesterol Free T4 PTH Intact Urine WBC (Auto) Urine Creatinine Salicylates Acetaminophen Crossmatch 03/18/19 03/18/19 03/18/19 12:33 12:50 13:19 WBC RBC Hgb Hct MCV RDW Plt Count Lymph % (Auto) [place] % (Auto) Lymph # Seg Neutrophils % Seg Neuts % (Manual) Lymphocytes % (Manual) Monocytes % (Manual) Nucleated RBC % Seg Neutrophils # Seg Neutrophils # Man Lymphocytes # (Manual) Monocytes # (Manual) PT INR D-Dimer Heparin Anti-Xa Level POC ABG pH 7.282 L ABG pH POC ABG pCO2 POC ABG pO2 67 L ABG pO2 ABG HCO3 ABG O2 Saturation ABG Base Excess ABG Hemoglobin Oxyhemoglobin Sodium Potassium Chloride Carbon Dioxide BUN Creatinine Glucose POC Glucose 129 H Lactic Acid 3.30 H* Calcium Ionized Calcium Phosphorus Magnesium Iron TIBC Ferritin Total Bilirubin Direct Bilirubin AST ALT Alkaline Phosphatase Total Creatine Kinase CK-MB (CK-2) Troponin T C-Reactive Protein Total Protein Albumin Triglycerides LDL Cholesterol Direct HDL Cholesterol Free T4 PTH Intact Urine WBC (Auto) Urine Creatinine Salicylates Acetaminophen Crossmatch 03/18/19 03/18/19 03/18/19 13:19 16:50 18:11 WBC RBC Hgb Hct MCV RDW Plt Count Lymph % (Auto) [place] % (Auto) Lymph # Seg Neutrophils % Seg Neuts % (Manual) Lymphocytes % (Manual) Monocytes % (Manual) Nucleated RBC % Seg Neutrophils # Seg Neutrophils # Man Lymphocytes # (Manual) Monocytes # (Manual) PT INR D-Dimer Heparin Anti-Xa Level POC ABG pH ABG pH POC ABG pCO2 POC ABG pO2 59 L ABG pO2 ABG HCO3 ABG O2 Saturation ABG Base Excess ABG Hemoglobin Oxyhemoglobin Sodium Potassium Chloride Carbon Dioxide BUN Creatinine Glucose POC Glucose 151 H Lactic Acid Calcium 4.2 L* Ionized Calcium Phosphorus Magnesium Iron TIBC Ferritin Total Bilirubin Direct Bilirubin AST ALT Alkaline Phosphatase Total Creatine Kinase 431046 H CK-MB (CK-2) Troponin T C-Reactive Protein Total Protein Albumin Triglycerides LDL Cholesterol Direct HDL Cholesterol Free T4 PTH Intact Urine WBC (Auto) Urine Creatinine Salicylates Acetaminophen Crossmatch 03/18/19 03/18/19 03/19/19 18:20 23:39 01:42 WBC RBC Hgb Hct MCV RDW Plt Count Lymph % (Auto) [place] % (Auto) Lymph # Seg Neutrophils % Seg Neuts % (Manual) Lymphocytes % (Manual) Monocytes % (Manual) Nucleated RBC % Seg Neutrophils # Seg Neutrophils # Man Lymphocytes # (Manual) Monocytes # (Manual) PT INR D-Dimer Heparin Anti-Xa Level POC ABG pH 7.345 L ABG pH 7.285 L POC ABG pCO2 POC ABG pO2 59 L ABG pO2 44.0 L ABG HCO3 ABG O2 Saturation 70.9 L ABG Base Excess -5.7 L ABG Hemoglobin 11.9 L Oxyhemoglobin 69.6 L Sodium Potassium Chloride Carbon Dioxide BUN Creatinine Glucose POC Glucose 152 H Lactic Acid Calcium Ionized Calcium Phosphorus Magnesium Iron TIBC Ferritin Total Bilirubin Direct Bilirubin AST ALT Alkaline Phosphatase Total Creatine Kinase CK-MB (CK-2) Troponin T C-Reactive Protein Total Protein Albumin Triglycerides LDL Cholesterol Direct HDL Cholesterol Free T4 PTH Intact Urine WBC (Auto) Urine Creatinine Salicylates Acetaminophen Crossmatch 03/19/19 03/19/19 03/19/19 04:00 04:00 05:35 WBC 36.5 H RBC Hgb Hct MCV RDW 15.8 H Plt Count 35 L Lymph % (Auto) [place] % (Auto) Lymph # Seg Neutrophils % Seg Neuts % (Manual) Lymphocytes % (Manual) Monocytes % (Manual) Nucleated RBC % Seg Neutrophils # Seg Neutrophils # Man Lymphocytes # (Manual) Monocytes # (Manual) PT INR D-Dimer Heparin Anti-Xa Level POC ABG pH ABG pH 7.265 L POC ABG pCO2 POC ABG pO2 ABG pO2 35.4 L* ABG HCO3 ABG O2 Saturation 54.4 L ABG Base Excess -6.7 L ABG Hemoglobin 12.9 L Oxyhemoglobin 53.4 L Sodium 132 L Potassium 5.7 H Chloride 89.8 L Carbon Dioxide 19 L BUN 62 H Creatinine 6.4 H Glucose 151 H POC Glucose Lactic Acid Calcium 5.2 L* D Ionized Calcium Phosphorus Magnesium Iron TIBC Ferritin Total Bilirubin 7.80 H Direct Bilirubin AST 682 H ALT 130 H Alkaline Phosphatase 167 H Total Creatine Kinase CK-MB (CK-2) Troponin T C-Reactive Protein Total Protein 4.8 L Albumin 2.3 L Triglycerides LDL Cholesterol Direct HDL Cholesterol Free T4 PTH Intact Urine WBC (Auto) Urine Creatinine Salicylates Acetaminophen Crossmatch 03/19/19 03/19/19 03/19/19 05:49 09:16 09:50 WBC RBC Hgb Hct MCV RDW Plt Count Lymph % (Auto) [place] % (Auto) Lymph # Seg Neutrophils % Seg Neuts % (Manual) Lymphocytes % (Manual) Monocytes % (Manual) Nucleated RBC % Seg Neutrophils # Seg Neutrophils # Man Lymphocytes # (Manual) Monocytes # (Manual) PT INR D-Dimer Heparin Anti-Xa Level POC ABG pH 7.222 L ABG pH POC ABG pCO2 56.6 H POC ABG pO2 ABG pO2 ABG HCO3 ABG O2 Saturation ABG Base Excess ABG Hemoglobin Oxyhemoglobin Sodium Potassium Chloride Carbon Dioxide BUN Creatinine Glucose POC Glucose 154 H Lactic Acid 2.70 H* Calcium Ionized Calcium Phosphorus Magnesium Iron TIBC Ferritin Total Bilirubin Direct Bilirubin AST ALT Alkaline Phosphatase Total Creatine Kinase CK-MB (CK-2) Troponin T C-Reactive Protein Total Protein Albumin Triglycerides LDL Cholesterol Direct HDL Cholesterol Free T4 PTH Intact Urine WBC (Auto) Urine Creatinine Salicylates Acetaminophen Crossmatch 03/19/19 03/19/19 03/19/19 09:50 11:28 17:58 WBC RBC Hgb Hct MCV RDW Plt Count Lymph % (Auto) [place] % (Auto) Lymph # Seg Neutrophils % Seg Neuts % (Manual) Lymphocytes % (Manual) Monocytes % (Manual) Nucleated RBC % Seg Neutrophils # Seg Neutrophils # Man Lymphocytes # (Manual) Monocytes # (Manual) PT INR D-Dimer Heparin Anti-Xa Level POC ABG pH 7.250 L ABG pH POC ABG pCO2 52.6 H POC ABG pO2 ABG pO2 ABG HCO3 ABG O2 Saturation ABG Base Excess ABG Hemoglobin Oxyhemoglobin Sodium Potassium Chloride Carbon Dioxide BUN Creatinine Glucose POC Glucose 160 H Lactic Acid Calcium Ionized Calcium Phosphorus Magnesium Iron TIBC Ferritin Total Bilirubin Direct Bilirubin AST ALT Alkaline Phosphatase Total Creatine Kinase 06619 H CK-MB (CK-2) Troponin T C-Reactive Protein Total Protein Albumin Triglycerides LDL Cholesterol Direct HDL Cholesterol Free T4 PTH Intact Urine WBC (Auto) Urine Creatinine Salicylates Acetaminophen Crossmatch 03/19/19 03/19/19 03/20/19 19:48 21:03 02:16 WBC RBC Hgb Hct MCV RDW Plt Count Lymph % (Auto) [place] % (Auto) Lymph # Seg Neutrophils % Seg Neuts % (Manual) Lymphocytes % (Manual) Monocytes % (Manual) Nucleated RBC % Seg Neutrophils # Seg Neutrophils # Man Lymphocytes # (Manual) Monocytes # (Manual) PT INR D-Dimer Heparin Anti-Xa Level POC ABG pH 7.279 L ABG pH POC ABG pCO2 50.3 H POC ABG pO2 129 H ABG pO2 ABG HCO3 ABG O2 Saturation ABG Base Excess ABG Hemoglobin Oxyhemoglobin Sodium Potassium Chloride Carbon Dioxide BUN Creatinine Glucose POC Glucose 119 H 119 H Lactic Acid Calcium Ionized Calcium Phosphorus Magnesium Iron TIBC Ferritin Total Bilirubin Direct Bilirubin AST ALT Alkaline Phosphatase Total Creatine Kinase CK-MB (CK-2) Troponin T C-Reactive Protein Total Protein Albumin Triglycerides LDL Cholesterol Direct HDL Cholesterol Free T4 PTH Intact Urine WBC (Auto) Urine Creatinine Salicylates Acetaminophen Crossmatch 03/20/19 03/20/19 03/20/19 04:23 05:05 09:30 WBC 36.3 H RBC Hgb Hct MCV RDW 15.5 H Plt Count 29 L Lymph % (Auto) [place] % (Auto) Lymph # Seg Neutrophils % Seg Neuts % (Manual) Lymphocytes % (Manual) Monocytes % (Manual) Nucleated RBC % Seg Neutrophils # Seg Neutrophils # Man Lymphocytes # (Manual) Monocytes # (Manual) PT INR D-Dimer Heparin Anti-Xa Level POC ABG pH ABG pH POC ABG pCO2 POC ABG pO2 280 H ABG pO2 ABG HCO3 ABG O2 Saturation ABG Base Excess ABG Hemoglobin Oxyhemoglobin Sodium Potassium Chloride Carbon Dioxide BUN Creatinine Glucose POC Glucose 115 H Lactic Acid Calcium Ionized Calcium Phosphorus Magnesium Iron TIBC Ferritin Total Bilirubin Direct Bilirubin AST ALT Alkaline Phosphatase Total Creatine Kinase CK-MB (CK-2) Troponin T C-Reactive Protein Total Protein Albumin Triglycerides LDL Cholesterol Direct HDL Cholesterol Free T4 PTH Intact Urine WBC (Auto) Urine Creatinine Salicylates Acetaminophen Crossmatch 03/20/19 03/20/19 03/20/19 09:30 09:30 11:34 WBC RBC Hgb Hct MCV RDW Plt Count Lymph % (Auto) [place] % (Auto) Lymph # Seg Neutrophils % Seg Neuts % (Manual) Lymphocytes % (Manual) Monocytes % (Manual) Nucleated RBC % Seg Neutrophils # Seg Neutrophils # Man Lymphocytes # (Manual) Monocytes # (Manual) PT INR D-Dimer Heparin Anti-Xa Level POC ABG pH ABG pH POC ABG pCO2 POC ABG pO2 ABG pO2 ABG HCO3 ABG O2 Saturation ABG Base Excess ABG Hemoglobin Oxyhemoglobin Sodium 131 L Potassium Chloride 92.3 L Carbon Dioxide 20 L BUN 68 H Creatinine 6.1 H Glucose 164 H POC Glucose 141 H Lactic Acid Calcium 5.3 L* Ionized Calcium Phosphorus Magnesium Iron TIBC Ferritin Total Bilirubin 9.50 H Direct Bilirubin AST 381 H ALT 116 H Alkaline Phosphatase 255 H Total Creatine Kinase 50947 H CK-MB (CK-2) Troponin T C-Reactive Protein Total Protein 5.1 L Albumin 2.3 L Triglycerides LDL Cholesterol Direct HDL Cholesterol Free T4 PTH Intact Urine WBC (Auto) Urine Creatinine Salicylates Acetaminophen Crossmatch 03/20/19 03/20/19 03/20/19 14:41 14:45 18:50 WBC RBC Hgb Hct MCV RDW Plt Count Lymph % (Auto) [place] % (Auto) Lymph # Seg Neutrophils % Seg Neuts % (Manual) Lymphocytes % (Manual) Monocytes % (Manual) Nucleated RBC % Seg Neutrophils # Seg Neutrophils # Man Lymphocytes # (Manual) Monocytes # (Manual) PT INR D-Dimer Heparin Anti-Xa Level POC ABG pH ABG pH POC ABG pCO2 POC ABG pO2 ABG pO2 ABG HCO3 ABG O2 Saturation ABG Base Excess ABG Hemoglobin Oxyhemoglobin Sodium Potassium Chloride Carbon Dioxide BUN Creatinine Glucose POC Glucose 117 H Lactic Acid 2.90 H* Calcium Ionized Calcium Phosphorus Magnesium Iron TIBC Ferritin Total Bilirubin Direct Bilirubin AST ALT Alkaline Phosphatase Total Creatine Kinase CK-MB (CK-2) Troponin T C-Reactive Protein 13.30 H Total Protein Albumin Triglycerides LDL Cholesterol Direct HDL Cholesterol Free T4 PTH Intact Urine WBC (Auto) Urine Creatinine Salicylates Acetaminophen Crossmatch 03/20/19 03/21/19 03/21/19 21:55 04:26 04:26 WBC 37.8 H RBC Hgb Hct MCV RDW 15.4 H Plt Count 36 L Lymph % (Auto) [place] % (Auto) Lymph # Seg Neutrophils % Seg Neuts % (Manual) 93.0 H Lymphocytes % (Manual) 3.0 L Monocytes % (Manual) Nucleated RBC % 1.0 H Seg Neutrophils # 34.6 H Seg Neutrophils # Man 35.2 H Lymphocytes # (Manual) 1.1 L Monocytes # (Manual) PT INR D-Dimer Heparin Anti-Xa Level POC ABG pH ABG pH POC ABG pCO2 POC ABG pO2 ABG pO2 ABG HCO3 ABG O2 Saturation ABG Base Excess ABG Hemoglobin Oxyhemoglobin Sodium 131 L Potassium Chloride 90.7 L Carbon Dioxide 21 L BUN 69 H Creatinine 5.7 H Glucose 170 H POC Glucose 128 H Lactic Acid Calcium 6.1 L D Ionized Calcium Phosphorus Magnesium Iron TIBC Ferritin Total Bilirubin 9.50 H Direct Bilirubin AST 308 H ALT 124 H Alkaline Phosphatase 327 H Total Creatine Kinase 04732 H CK-MB (CK-2) Troponin T C-Reactive Protein Total Protein 5.7 L Albumin 2.6 L Triglycerides LDL Cholesterol Direct HDL Cholesterol Free T4 PTH Intact Urine WBC (Auto) Urine Creatinine Salicylates Acetaminophen Crossmatch 03/21/19 03/21/19 03/21/19 05:17 05:39 08:29 WBC RBC Hgb Hct MCV RDW Plt Count Lymph % (Auto) [place] % (Auto) Lymph # Seg Neutrophils % Seg Neuts % (Manual) Lymphocytes % (Manual) Monocytes % (Manual) Nucleated RBC % Seg Neutrophils # Seg Neutrophils # Man Lymphocytes # (Manual) Monocytes # (Manual) PT INR D-Dimer Heparin Anti-Xa Level POC ABG pH ABG pH POC ABG pCO2 POC ABG pO2 209 H ABG pO2 ABG HCO3 ABG O2 Saturation ABG Base Excess ABG Hemoglobin Oxyhemoglobin Sodium Potassium Chloride Carbon Dioxide BUN Creatinine Glucose POC Glucose 145 H Lactic Acid Calcium Ionized Calcium Phosphorus Magnesium Iron TIBC Ferritin Total Bilirubin Direct Bilirubin AST ALT Alkaline Phosphatase Total Creatine Kinase 57510 H CK-MB (CK-2) Troponin T C-Reactive Protein Total Protein Albumin Triglycerides LDL Cholesterol Direct HDL Cholesterol Free T4 PTH Intact Urine WBC (Auto) Urine Creatinine Salicylates Acetaminophen Crossmatch 03/21/19 03/21/19 03/21/19 08:29 11:43 12:00 WBC RBC Hgb Hct MCV RDW Plt Count Lymph % (Auto) [place] % (Auto) Lymph # Seg Neutrophils % Seg Neuts % (Manual) Lymphocytes % (Manual) Monocytes % (Manual) Nucleated RBC % Seg Neutrophils # Seg Neutrophils # Man Lymphocytes # (Manual) Monocytes # (Manual) PT INR D-Dimer Heparin Anti-Xa Level POC ABG pH ABG pH POC ABG pCO2 POC ABG pO2 ABG pO2 ABG HCO3 ABG O2 Saturation ABG Base Excess ABG Hemoglobin Oxyhemoglobin Sodium Potassium Chloride Carbon Dioxide BUN Creatinine Glucose POC Glucose 123 H Lactic Acid 2.60 H* 2.20 H* Calcium Ionized Calcium Phosphorus Magnesium Iron TIBC Ferritin Total Bilirubin Direct Bilirubin AST ALT Alkaline Phosphatase Total Creatine Kinase CK-MB (CK-2) Troponin T C-Reactive Protein Total Protein Albumin Triglycerides LDL Cholesterol Direct HDL Cholesterol Free T4 PTH Intact Urine WBC (Auto) Urine Creatinine Salicylates Acetaminophen Crossmatch 03/21/19 03/21/19 03/21/19 14:11 18:28 19:32 WBC RBC Hgb Hct MCV RDW Plt Count Lymph % (Auto) [place] % (Auto) Lymph # Seg Neutrophils % Seg Neuts % (Manual) Lymphocytes % (Manual) Monocytes % (Manual) Nucleated RBC % Seg Neutrophils # Seg Neutrophils # Man Lymphocytes # (Manual) Monocytes # (Manual) PT INR D-Dimer Heparin Anti-Xa Level POC ABG pH 7.293 L ABG pH POC ABG pCO2 POC ABG pO2 ABG pO2 ABG HCO3 ABG O2 Saturation ABG Base Excess ABG Hemoglobin Oxyhemoglobin Sodium Potassium Chloride Carbon Dioxide BUN Creatinine Glucose POC Glucose 153 H Lactic Acid 2.10 H* Calcium Ionized Calcium Phosphorus Magnesium Iron TIBC Ferritin Total Bilirubin Direct Bilirubin AST ALT Alkaline Phosphatase Total Creatine Kinase CK-MB (CK-2) Troponin T C-Reactive Protein Total Protein Albumin Triglycerides LDL Cholesterol Direct HDL Cholesterol Free T4 PTH Intact Urine WBC (Auto) Urine Creatinine Salicylates Acetaminophen Crossmatch 03/21/19 03/22/19 03/22/19 23:38 05:08 05:51 WBC RBC Hgb Hct MCV RDW Plt Count Lymph % (Auto) [place] % (Auto) Lymph # Seg Neutrophils % Seg Neuts % (Manual) Lymphocytes % (Manual) Monocytes % (Manual) Nucleated RBC % Seg Neutrophils # Seg Neutrophils # Man Lymphocytes # (Manual) Monocytes # (Manual) PT INR D-Dimer Heparin Anti-Xa Level POC ABG pH 7.283 L ABG pH POC ABG pCO2 POC ABG pO2 53 L ABG pO2 ABG HCO3 ABG O2 Saturation ABG Base Excess ABG Hemoglobin Oxyhemoglobin Sodium Potassium Chloride Carbon Dioxide BUN Creatinine Glucose POC Glucose 149 H 131 H Lactic Acid Calcium Ionized Calcium Phosphorus Magnesium Iron TIBC Ferritin Total Bilirubin Direct Bilirubin AST ALT Alkaline Phosphatase Total Creatine Kinase CK-MB (CK-2) Troponin T C-Reactive Protein Total Protein Albumin Triglycerides LDL Cholesterol Direct HDL Cholesterol Free T4 PTH Intact Urine WBC (Auto) Urine Creatinine Salicylates Acetaminophen Crossmatch 03/22/19 03/22/19 03/22/19 08:00 08:00 18:19 WBC 36.7 H RBC Hgb 11.0 L Hct 33.5 L MCV RDW 15.5 H Plt Count 43 L Lymph % (Auto) [place] % (Auto) Lymph # Seg Neutrophils % Seg Neuts % (Manual) 87.0 H Lymphocytes % (Manual) 7.0 L Monocytes % (Manual) Nucleated RBC % Seg Neutrophils # Seg Neutrophils # Man 31.9 H Lymphocytes # (Manual) Monocytes # (Manual) PT INR D-Dimer Heparin Anti-Xa Level POC ABG pH ABG pH POC ABG pCO2 46.4 H POC ABG pO2 108 H ABG pO2 ABG HCO3 ABG O2 Saturation ABG Base Excess ABG Hemoglobin Oxyhemoglobin Sodium 132 L Potassium 5.6 H Chloride 89.6 L Carbon Dioxide 20 L BUN 101 H Creatinine 7.4 H Glucose 124 H POC Glucose Lactic Acid Calcium 5.2 L* Ionized Calcium Phosphorus Magnesium Iron TIBC Ferritin Total Bilirubin 2.80 H Direct Bilirubin AST 119 H ALT 86 H Alkaline Phosphatase 245 H Total Creatine Kinase CK-MB (CK-2) Troponin T C-Reactive Protein Total Protein 5.6 L Albumin 2.5 L Triglycerides LDL Cholesterol Direct HDL Cholesterol Free T4 PTH Intact Urine WBC (Auto) Urine Creatinine Salicylates Acetaminophen Crossmatch 03/22/19 03/23/19 03/23/19 20:37 04:49 05:28 WBC 35.9 H RBC Hgb 10.8 L Hct 33.2 L MCV RDW 15.5 H Plt Count 49 L Lymph % (Auto) [place] % (Auto) Lymph # Seg Neutrophils % Seg Neuts % (Manual) 81.0 H Lymphocytes % (Manual) 3.5 L Monocytes % (Manual) Nucleated RBC % Seg Neutrophils # Seg Neutrophils # Man 29.1 H Lymphocytes # (Manual) Monocytes # (Manual) 1.4 H PT INR D-Dimer Heparin Anti-Xa Level POC ABG pH 7.296 L ABG pH POC ABG pCO2 46.2 H POC ABG pO2 ABG pO2 ABG HCO3 ABG O2 Saturation ABG Base Excess ABG Hemoglobin Oxyhemoglobin Sodium 129 L Potassium 5.2 H Chloride 91.1 L Carbon Dioxide BUN 91 H Creatinine 6.6 H Glucose 190 H POC Glucose Lactic Acid Calcium 5.3 L* Ionized Calcium Phosphorus Magnesium Iron TIBC Ferritin Total Bilirubin 1.80 H Direct Bilirubin AST 80 H ALT 62 H Alkaline Phosphatase 209 H Total Creatine Kinase 9758 H CK-MB (CK-2) Troponin T C-Reactive Protein Total Protein 5.2 L Albumin 2.2 L Triglycerides LDL Cholesterol Direct HDL Cholesterol Free T4 PTH Intact Urine WBC (Auto) Urine Creatinine Salicylates Acetaminophen Crossmatch 03/23/19 03/23/19 03/23/19 05:28 05:31 11:33 WBC 29.7 H RBC 3.59 L Hgb 10.1 L Hct 31.1 L MCV RDW 15.4 H Plt Count 47 L Lymph % (Auto) [place] % (Auto) Lymph # Seg Neutrophils % Seg Neuts % (Manual) 89.0 H Lymphocytes % (Manual) 6.0 L Monocytes % (Manual) Nucleated RBC % 1.0 H Seg Neutrophils # Seg Neutrophils # Man 26.4 H Lymphocytes # (Manual) Monocytes # (Manual) PT INR D-Dimer Heparin Anti-Xa Level POC ABG pH ABG pH POC ABG pCO2 POC ABG pO2 ABG pO2 ABG HCO3 ABG O2 Saturation ABG Base Excess ABG Hemoglobin Oxyhemoglobin Sodium Potassium Chloride Carbon Dioxide BUN Creatinine Glucose POC Glucose 122 H 113 H Lactic Acid Calcium Ionized Calcium Phosphorus Magnesium Iron TIBC Ferritin Total Bilirubin Direct Bilirubin AST ALT Alkaline Phosphatase Total Creatine Kinase CK-MB (CK-2) Troponin T C-Reactive Protein Total Protein Albumin Triglycerides LDL Cholesterol Direct HDL Cholesterol Free T4 PTH Intact Urine WBC (Auto) Urine Creatinine Salicylates Acetaminophen Crossmatch 03/23/19 03/24/19 03/24/19 17:47 00:00 04:50 WBC 35.0 H RBC Hgb 10.4 L Hct 32.4 L MCV RDW Plt Count 60 L Lymph % (Auto) [place] % (Auto) Lymph # Seg Neutrophils % Seg Neuts % (Manual) 93.0 H Lymphocytes % (Manual) 5.0 L Monocytes % (Manual) Nucleated RBC % 7.0 H Seg Neutrophils # Seg Neutrophils # Man 32.6 H Lymphocytes # (Manual) Monocytes # (Manual) PT INR D-Dimer Heparin Anti-Xa Level POC ABG pH ABG pH POC ABG pCO2 POC ABG pO2 ABG pO2 ABG HCO3 ABG O2 Saturation ABG Base Excess ABG Hemoglobin Oxyhemoglobin Sodium Potassium Chloride Carbon Dioxide BUN Creatinine Glucose POC Glucose 111 H 108 H Lactic Acid Calcium Ionized Calcium Phosphorus Magnesium Iron TIBC Ferritin Total Bilirubin Direct Bilirubin AST ALT Alkaline Phosphatase Total Creatine Kinase CK-MB (CK-2) Troponin T C-Reactive Protein Total Protein Albumin Triglycerides LDL Cholesterol Direct HDL Cholesterol Free T4 PTH Intact Urine WBC (Auto) Urine Creatinine Salicylates Acetaminophen Crossmatch 03/24/19 03/24/19 03/24/19 04:50 05:06 12:55 WBC RBC Hgb Hct MCV RDW Plt Count Lymph % (Auto) [place] % (Auto) Lymph # Seg Neutrophils % Seg Neuts % (Manual) Lymphocytes % (Manual) Monocytes % (Manual) Nucleated RBC % Seg Neutrophils # Seg Neutrophils # Man Lymphocytes # (Manual) Monocytes # (Manual) PT INR D-Dimer Heparin Anti-Xa Level POC ABG pH ABG pH POC ABG pCO2 POC ABG pO2 ABG pO2 ABG HCO3 ABG O2 Saturation ABG Base Excess ABG Hemoglobin Oxyhemoglobin Sodium 134 L Potassium 5.1 H Chloride 95.3 L Carbon Dioxide 21 L BUN 85 H Creatinine 6.4 H Glucose 109 H POC Glucose 112 H 110 H Lactic Acid Calcium 5.8 L* Ionized Calcium Phosphorus Magnesium Iron TIBC Ferritin Total Bilirubin Direct Bilirubin AST ALT Alkaline Phosphatase Total Creatine Kinase 5747 H CK-MB (CK-2) Troponin T C-Reactive Protein Total Protein Albumin Triglycerides LDL Cholesterol Direct HDL Cholesterol Free T4 PTH Intact Urine WBC (Auto) Urine Creatinine Salicylates Acetaminophen Crossmatch 03/24/19 03/25/19 03/25/19 23:29 05:00 05:00 WBC RBC Hgb Hct MCV RDW Plt Count Lymph % (Auto) [place] % (Auto) Lymph # Seg Neutrophils % Seg Neuts % (Manual) Lymphocytes % (Manual) Monocytes % (Manual) Nucleated RBC % Seg Neutrophils # Seg Neutrophils # Man Lymphocytes # (Manual) Monocytes # (Manual) PT INR D-Dimer Heparin Anti-Xa Level POC ABG pH ABG pH POC ABG pCO2 POC ABG pO2 ABG pO2 ABG HCO3 ABG O2 Saturation ABG Base Excess ABG Hemoglobin Oxyhemoglobin Sodium 133 L Potassium Chloride 94.0 L Carbon Dioxide 21 L BUN 81 H Creatinine 6.4 H Glucose POC Glucose 109 H Lactic Acid Calcium 5.5 L* Ionized Calcium Phosphorus Magnesium Iron TIBC Ferritin Total Bilirubin Direct Bilirubin AST 80 H ALT Alkaline Phosphatase 202 H Total Creatine Kinase 3589 H CK-MB (CK-2) Troponin T C-Reactive Protein Total Protein 5.3 L Albumin 2.4 L Triglycerides LDL Cholesterol Direct HDL Cholesterol Free T4 PTH Intact 329.9 H Urine WBC (Auto) Urine Creatinine Salicylates Acetaminophen Crossmatch 03/25/19 03/25/19 03/26/19 05:00 06:30 04:30 WBC 23.3 H RBC 3.61 L Hgb 10.2 L Hct 31.2 L MCV RDW Plt Count 57 L Lymph % (Auto) [place] % (Auto) Lymph # Seg Neutrophils % Seg Neuts % (Manual) 92.0 H Lymphocytes % (Manual) 6.0 L Monocytes % (Manual) Nucleated RBC % Seg Neutrophils # Seg Neutrophils # Man 21.4 H Lymphocytes # (Manual) Monocytes # (Manual) PT INR D-Dimer Heparin Anti-Xa Level POC ABG pH ABG pH 7.326 L POC ABG pCO2 POC ABG pO2 ABG pO2 109.5 H 137.4 H ABG HCO3 18.8 L 18.6 L ABG O2 Saturation ABG Base Excess -4.4 L -6.8 L ABG Hemoglobin 10.1 L 9.9 L Oxyhemoglobin Sodium Potassium Chloride Carbon Dioxide BUN Creatinine Glucose POC Glucose Lactic Acid Calcium Ionized Calcium Phosphorus Magnesium Iron TIBC Ferritin Total Bilirubin Direct Bilirubin AST ALT Alkaline Phosphatase Total Creatine Kinase CK-MB (CK-2) Troponin T C-Reactive Protein Total Protein Albumin Triglycerides LDL Cholesterol Direct HDL Cholesterol Free T4 PTH Intact Urine WBC (Auto) Urine Creatinine Salicylates Acetaminophen Crossmatch 03/26/19 03/26/19 03/26/19 23:22 Unknown Unknown WBC 19.5 H RBC 3.44 L Hgb 9.8 L Hct 29.9 L MCV RDW Plt Count 85 L Lymph % (Auto) [place] % (Auto) Lymph # Seg Neutrophils % Seg Neuts % (Manual) 95.0 H Lymphocytes % (Manual) 3.0 L Monocytes % (Manual) Nucleated RBC % Seg Neutrophils # Seg Neutrophils # Man 18.5 H Lymphocytes # (Manual) 0.6 L Monocytes # (Manual) PT INR D-Dimer Heparin Anti-Xa Level POC ABG pH ABG pH POC ABG pCO2 POC ABG pO2 ABG pO2 ABG HCO3 ABG O2 Saturation ABG Base Excess ABG Hemoglobin Oxyhemoglobin Sodium 135 L Potassium 5.2 H D Chloride 92.2 L Carbon Dioxide 18 L BUN 109 H Creatinine 8.5 H Glucose 117 H POC Glucose 69 L Lactic Acid Calcium 4.5 L* D Ionized Calcium Phosphorus Magnesium Iron TIBC Ferritin Total Bilirubin Direct Bilirubin AST ALT Alkaline Phosphatase Total Creatine Kinase 4527 H CK-MB (CK-2) Troponin T C-Reactive Protein Total Protein Albumin Triglycerides LDL Cholesterol Direct HDL Cholesterol Free T4 PTH Intact Urine WBC (Auto) Urine Creatinine Salicylates Acetaminophen Crossmatch 03/27/19 03/27/19 03/27/19 04:30 04:30 09:00 WBC 19.2 H RBC 3.42 L Hgb 9.9 L Hct 30.0 L MCV RDW Plt Count 84 L Lymph % (Auto) [place] % (Auto) Lymph # Seg Neutrophils % Seg Neuts % (Manual) Lymphocytes % (Manual) Monocytes % (Manual) Nucleated RBC % Seg Neutrophils # Seg Neutrophils # Man Lymphocytes # (Manual) Monocytes # (Manual) PT INR D-Dimer Heparin Anti-Xa Level POC ABG pH ABG pH POC ABG pCO2 POC ABG pO2 ABG pO2 ABG HCO3 ABG O2 Saturation ABG Base Excess ABG Hemoglobin Oxyhemoglobin Sodium 135 L Potassium Chloride 93.5 L Carbon Dioxide BUN 84 H Creatinine 7.1 H Glucose POC Glucose Lactic Acid Calcium 5.0 L* Ionized Calcium Phosphorus Magnesium Iron TIBC Ferritin Total Bilirubin Direct Bilirubin AST 78 H ALT Alkaline Phosphatase 135 H Total Creatine Kinase 4677 H CK-MB (CK-2) Troponin T C-Reactive Protein Total Protein 4.8 L Albumin 2.3 L Triglycerides 409 H LDL Cholesterol Direct HDL Cholesterol Free T4 PTH Intact Urine WBC (Auto) Urine Creatinine Salicylates Acetaminophen Crossmatch 03/27/19 03/27/19 03/27/19 12:37 14:15 14:15 WBC RBC Hgb 9.7 L Hct 29.5 L MCV RDW Plt Count 87 L Lymph % (Auto) [place] % (Auto) Lymph # Seg Neutrophils % Seg Neuts % (Manual) Lymphocytes % (Manual) Monocytes % (Manual) Nucleated RBC % Seg Neutrophils # Seg Neutrophils # Man Lymphocytes # (Manual) Monocytes # (Manual) PT 15.9 H INR 1.30 H D-Dimer Heparin Anti-Xa Level POC ABG pH ABG pH POC ABG pCO2 POC ABG pO2 ABG pO2 ABG HCO3 ABG O2 Saturation ABG Base Excess ABG Hemoglobin Oxyhemoglobin Sodium Potassium Chloride Carbon Dioxide BUN Creatinine Glucose POC Glucose 129 H Lactic Acid Calcium Ionized Calcium Phosphorus Magnesium Iron TIBC Ferritin Total Bilirubin Direct Bilirubin AST ALT Alkaline Phosphatase Total Creatine Kinase CK-MB (CK-2) Troponin T C-Reactive Protein Total Protein Albumin Triglycerides LDL Cholesterol Direct HDL Cholesterol Free T4 PTH Intact Urine WBC (Auto) Urine Creatinine Salicylates Acetaminophen Crossmatch 03/27/19 03/27/19 03/27/19 18:00 19:22 19:23 WBC RBC Hgb Hct MCV RDW Plt Count Lymph % (Auto) [place] % (Auto) Lymph # Seg Neutrophils % Seg Neuts % (Manual) Lymphocytes % (Manual) Monocytes % (Manual) Nucleated RBC % Seg Neutrophils # Seg Neutrophils # Man Lymphocytes # (Manual) Monocytes # (Manual) PT INR D-Dimer Heparin Anti-Xa Level < 0.10 L POC ABG pH ABG pH POC ABG pCO2 POC ABG pO2 ABG pO2 ABG HCO3 ABG O2 Saturation ABG Base Excess ABG Hemoglobin Oxyhemoglobin Sodium Potassium Chloride Carbon Dioxide BUN Creatinine Glucose POC Glucose 121 H Lactic Acid Calcium Ionized Calcium Phosphorus Magnesium Iron TIBC Ferritin Total Bilirubin Direct Bilirubin AST ALT Alkaline Phosphatase Total Creatine Kinase 4517 H CK-MB (CK-2) Troponin T C-Reactive Protein Total Protein Albumin Triglycerides LDL Cholesterol Direct HDL Cholesterol Free T4 PTH Intact Urine WBC (Auto) Urine Creatinine Salicylates Acetaminophen Crossmatch 03/27/19 03/27/19 03/28/19 22:10 23:52 03:49 WBC RBC Hgb Hct MCV RDW Plt Count Lymph % (Auto) [place] % (Auto) Lymph # Seg Neutrophils % Seg Neuts % (Manual) Lymphocytes % (Manual) Monocytes % (Manual) Nucleated RBC % Seg Neutrophils # Seg Neutrophils # Man Lymphocytes # (Manual) Monocytes # (Manual) PT INR D-Dimer Heparin Anti-Xa Level POC ABG pH 7.338 L ABG pH POC ABG pCO2 33.1 L POC ABG pO2 ABG pO2 ABG HCO3 ABG O2 Saturation ABG Base Excess ABG Hemoglobin Oxyhemoglobin Sodium Potassium Chloride Carbon Dioxide BUN Creatinine Glucose POC Glucose 113 H 117 H Lactic Acid Calcium Ionized Calcium Phosphorus Magnesium Iron TIBC Ferritin Total Bilirubin Direct Bilirubin AST ALT Alkaline Phosphatase Total Creatine Kinase CK-MB (CK-2) Troponin T C-Reactive Protein Total Protein Albumin Triglycerides LDL Cholesterol Direct HDL Cholesterol Free T4 PTH Intact Urine WBC (Auto) Urine Creatinine Salicylates Acetaminophen Crossmatch 03/28/19 03/28/19 03/28/19 05:13 05:13 06:18 WBC RBC Hgb Hct MCV RDW Plt Count Lymph % (Auto) [place] % (Auto) Lymph # Seg Neutrophils % Seg Neuts % (Manual) Lymphocytes % (Manual) Monocytes % (Manual) Nucleated RBC % Seg Neutrophils # Seg Neutrophils # Man Lymphocytes # (Manual) Monocytes # (Manual) PT INR D-Dimer Heparin Anti-Xa Level 0.23 L POC ABG pH ABG pH POC ABG pCO2 POC ABG pO2 ABG pO2 ABG HCO3 ABG O2 Saturation ABG Base Excess ABG Hemoglobin Oxyhemoglobin Sodium 135 L Potassium 5.5 H D Chloride 95.1 L Carbon Dioxide 16 L D BUN 129 H Creatinine 9.3 H Glucose 158 H POC Glucose 202 H Lactic Acid Calcium 4.0 L* D Ionized Calcium Phosphorus 12.40 H Magnesium Iron TIBC Ferritin Total Bilirubin Direct Bilirubin AST ALT Alkaline Phosphatase Total Creatine Kinase 4266 H CK-MB (CK-2) Troponin T C-Reactive Protein Total Protein Albumin Triglycerides LDL Cholesterol Direct HDL Cholesterol Free T4 PTH Intact Urine WBC (Auto) Urine Creatinine Salicylates Acetaminophen Crossmatch 03/28/19 03/28/19 03/28/19 08:25 10:00 12:00 WBC RBC Hgb 4.9 L* D Hct 15.4 L* D MCV RDW Plt Count Lymph % (Auto) [place] % (Auto) Lymph # Seg Neutrophils % Seg Neuts % (Manual) Lymphocytes % (Manual) Monocytes % (Manual) Nucleated RBC % Seg Neutrophils # Seg Neutrophils # Man Lymphocytes # (Manual) Monocytes # (Manual) PT 17.9 H INR 1.52 H D-Dimer 4845.98 H Heparin Anti-Xa Level POC ABG pH ABG pH POC ABG pCO2 POC ABG pO2 ABG pO2 ABG HCO3 ABG O2 Saturation ABG Base Excess ABG Hemoglobin Oxyhemoglobin Sodium Potassium Chloride Carbon Dioxide BUN Creatinine Glucose POC Glucose Lactic Acid Calcium Ionized Calcium Phosphorus Magnesium Iron TIBC Ferritin Total Bilirubin Direct Bilirubin AST ALT Alkaline Phosphatase Total Creatine Kinase CK-MB (CK-2) Troponin T C-Reactive Protein Total Protein Albumin Triglycerides LDL Cholesterol Direct HDL Cholesterol Free T4 PTH Intact Urine WBC (Auto) Urine Creatinine Salicylates Acetaminophen Crossmatch See Detail 03/28/19 03/28/19 03/28/19 12:28 14:10 17:43 WBC RBC Hgb 5.9 L* Hct 18.3 L* MCV RDW Plt Count Lymph % (Auto) [place] % (Auto) Lymph # Seg Neutrophils % Seg Neuts % (Manual) Lymphocytes % (Manual) Monocytes % (Manual) Nucleated RBC % Seg Neutrophils # Seg Neutrophils # Man Lymphocytes # (Manual) Monocytes # (Manual) PT INR D-Dimer Heparin Anti-Xa Level POC ABG pH ABG pH POC ABG pCO2 POC ABG pO2 ABG pO2 ABG HCO3 ABG O2 Saturation ABG Base Excess ABG Hemoglobin Oxyhemoglobin Sodium Potassium Chloride Carbon Dioxide BUN Creatinine Glucose POC Glucose 153 H 159 H Lactic Acid Calcium Ionized Calcium Phosphorus Magnesium Iron TIBC Ferritin Total Bilirubin Direct Bilirubin AST ALT Alkaline Phosphatase Total Creatine Kinase CK-MB (CK-2) Troponin T C-Reactive Protein Total Protein Albumin Triglycerides LDL Cholesterol Direct HDL Cholesterol Free T4 PTH Intact Urine WBC (Auto) Urine Creatinine Salicylates Acetaminophen Crossmatch 03/28/19 03/28/19 03/28/19 18:10 Unknown 23:59 WBC 24.8 H RBC 3.42 L Hgb 10.2 L D Hct 31.1 L D MCV RDW 15.4 H Plt Count 54 L Lymph % (Auto) [place] % (Auto) Lymph # Seg Neutrophils % Seg Neuts % (Manual) 91.0 H Lymphocytes % (Manual) 8.0 L Monocytes % (Manual) Nucleated RBC % Seg Neutrophils # Seg Neutrophils # Man 22.6 H Lymphocytes # (Manual) Monocytes # (Manual) PT INR D-Dimer Heparin Anti-Xa Level POC ABG pH ABG pH POC ABG pCO2 POC ABG pO2 ABG pO2 ABG HCO3 ABG O2 Saturation ABG Base Excess ABG Hemoglobin Oxyhemoglobin Sodium Potassium 5.7 H Chloride Carbon Dioxide BUN Creatinine Glucose POC Glucose 107 H Lactic Acid Calcium Ionized Calcium Phosphorus Magnesium Iron TIBC Ferritin Total Bilirubin Direct Bilirubin AST ALT Alkaline Phosphatase Total Creatine Kinase CK-MB (CK-2) Troponin T C-Reactive Protein Total Protein Albumin Triglycerides LDL Cholesterol Direct HDL Cholesterol Free T4 PTH Intact Urine WBC (Auto) Urine Creatinine Salicylates Acetaminophen Crossmatch 03/29/19 03/29/19 03/29/19 04:29 05:46 06:22 WBC RBC Hgb 8.6 L Hct 25.7 L MCV RDW Plt Count 93 L Lymph % (Auto) [place] % (Auto) Lymph # Seg Neutrophils % Seg Neuts % (Manual) Lymphocytes % (Manual) Monocytes % (Manual) Nucleated RBC % Seg Neutrophils # Seg Neutrophils # Man Lymphocytes # (Manual) Monocytes # (Manual) PT INR D-Dimer Heparin Anti-Xa Level POC ABG pH ABG pH POC ABG pCO2 32.2 L POC ABG pO2 ABG pO2 ABG HCO3 ABG O2 Saturation ABG Base Excess ABG Hemoglobin Oxyhemoglobin Sodium Potassium Chloride Carbon Dioxide BUN Creatinine Glucose POC Glucose 113 H Lactic Acid Calcium Ionized Calcium Phosphorus Magnesium Iron TIBC Ferritin Total Bilirubin Direct Bilirubin AST ALT Alkaline Phosphatase Total Creatine Kinase CK-MB (CK-2) Troponin T C-Reactive Protein Total Protein Albumin Triglycerides LDL Cholesterol Direct HDL Cholesterol Free T4 PTH Intact Urine WBC (Auto) Urine Creatinine Salicylates Acetaminophen Crossmatch 03/29/19 03/29/19 03/29/19 06:22 06:22 06:22 WBC 23.2 H RBC 2.91 L Hgb 8.6 L Hct 25.8 L MCV RDW Plt Count 91 L Lymph % (Auto) [place] % (Auto) Lymph # Seg Neutrophils % Seg Neuts % (Manual) Lymphocytes % (Manual) Monocytes % (Manual) Nucleated RBC % Seg Neutrophils # Seg Neutrophils # Man Lymphocytes # (Manual) Monocytes # (Manual) PT INR D-Dimer Heparin Anti-Xa Level POC ABG pH ABG pH POC ABG pCO2 POC ABG pO2 ABG pO2 ABG HCO3 ABG O2 Saturation ABG Base Excess ABG Hemoglobin Oxyhemoglobin Sodium 133 L Potassium Chloride 93.8 L Carbon Dioxide 18 L BUN 109 H Creatinine 7.4 H Glucose 124 H POC Glucose Lactic Acid Calcium 4.6 L* Ionized Calcium Phosphorus Magnesium Iron TIBC Ferritin Total Bilirubin Direct Bilirubin AST ALT Alkaline Phosphatase Total Creatine Kinase 3401 H CK-MB (CK-2) Troponin T C-Reactive Protein Total Protein Albumin Triglycerides 309 H LDL Cholesterol Direct HDL Cholesterol Free T4 PTH Intact Urine WBC (Auto) Urine Creatinine Salicylates Acetaminophen Crossmatch 03/29/19 03/29/19 03/29/19 11:48 11:48 18:24 WBC RBC Hgb 7.8 L Hct 23.2 L MCV RDW Plt Count Lymph % (Auto) [place] % (Auto) Lymph # Seg Neutrophils % Seg Neuts % (Manual) Lymphocytes % (Manual) Monocytes % (Manual) Nucleated RBC % Seg Neutrophils # Seg Neutrophils # Man Lymphocytes # (Manual) Monocytes # (Manual) PT 15.3 H INR 1.24 H D-Dimer Heparin Anti-Xa Level POC ABG pH ABG pH POC ABG pCO2 POC ABG pO2 ABG pO2 ABG HCO3 ABG O2 Saturation ABG Base Excess ABG Hemoglobin Oxyhemoglobin Sodium Potassium Chloride Carbon Dioxide BUN Creatinine Glucose POC Glucose 122 H Lactic Acid Calcium Ionized Calcium Phosphorus Magnesium Iron TIBC Ferritin Total Bilirubin Direct Bilirubin AST ALT Alkaline Phosphatase Total Creatine Kinase CK-MB (CK-2) Troponin T C-Reactive Protein Total Protein Albumin Triglycerides LDL Cholesterol Direct HDL Cholesterol Free T4 PTH Intact Urine WBC (Auto) Urine Creatinine Salicylates Acetaminophen Crossmatch 03/30/19 03/30/19 03/30/19 00:40 04:31 05:04 WBC RBC Hgb 7.6 L Hct 23.0 L MCV RDW Plt Count Lymph % (Auto) [place] % (Auto) Lymph # Seg Neutrophils % Seg Neuts % (Manual) Lymphocytes % (Manual) Monocytes % (Manual) Nucleated RBC % Seg Neutrophils # Seg Neutrophils # Man Lymphocytes # (Manual) Monocytes # (Manual) PT INR D-Dimer Heparin Anti-Xa Level POC ABG pH 7.346 L ABG pH POC ABG pCO2 POC ABG pO2 62 L ABG pO2 ABG HCO3 ABG O2 Saturation ABG Base Excess ABG Hemoglobin Oxyhemoglobin Sodium Potassium Chloride Carbon Dioxide BUN 79 H Creatinine 6.4 H Glucose POC Glucose Lactic Acid Calcium 6.1 L D Ionized Calcium Phosphorus Magnesium Iron TIBC Ferritin Total Bilirubin Direct Bilirubin AST ALT Alkaline Phosphatase Total Creatine Kinase CK-MB (CK-2) Troponin T C-Reactive Protein Total Protein Albumin Triglycerides LDL Cholesterol Direct HDL Cholesterol Free T4 PTH Intact Urine WBC (Auto) Urine Creatinine Salicylates Acetaminophen Crossmatch 03/30/19 03/30/19 03/30/19 08:45 12:09 22:43 WBC 14.3 H RBC 2.33 L Hgb 7.0 L 7.4 L Hct 21.0 L 22.3 L MCV RDW 15.6 H Plt Count 135 L Lymph % (Auto) [place] % (Auto) Lymph # Seg Neutrophils % Seg Neuts % (Manual) Lymphocytes % (Manual) Monocytes % (Manual) Nucleated RBC % Seg Neutrophils # Seg Neutrophils # Man Lymphocytes # (Manual) Monocytes # (Manual) PT INR D-Dimer Heparin Anti-Xa Level POC ABG pH ABG pH POC ABG pCO2 POC ABG pO2 ABG pO2 ABG HCO3 ABG O2 Saturation ABG Base Excess ABG Hemoglobin Oxyhemoglobin Sodium Potassium Chloride Carbon Dioxide BUN Creatinine Glucose POC Glucose Lactic Acid Calcium Ionized Calcium 3.7 L Phosphorus Magnesium Iron TIBC Ferritin Total Bilirubin Direct Bilirubin AST ALT Alkaline Phosphatase Total Creatine Kinase CK-MB (CK-2) Troponin T C-Reactive Protein Total Protein Albumin Triglycerides LDL Cholesterol Direct HDL Cholesterol Free T4 PTH Intact Urine WBC (Auto) Urine Creatinine Salicylates Acetaminophen Crossmatch 03/30/19 03/30/19 03/31/19 23:38 Unknown 04:44 WBC 11.5 H RBC 2.40 L Hgb 7.3 L Hct 21.9 L MCV RDW 15.4 H Plt Count Lymph % (Auto) 10.6 L [place] % (Auto) Lymph # Seg Neutrophils % 81.7 H Seg Neuts % (Manual) Lymphocytes % (Manual) Monocytes % (Manual) Nucleated RBC % Seg Neutrophils # 9.4 H Seg Neutrophils # Man Lymphocytes # (Manual) Monocytes # (Manual) PT INR D-Dimer Heparin Anti-Xa Level POC ABG pH ABG pH POC ABG pCO2 POC ABG pO2 ABG pO2 ABG HCO3 ABG O2 Saturation ABG Base Excess ABG Hemoglobin Oxyhemoglobin Sodium Potassium Chloride Carbon Dioxide BUN Creatinine Glucose POC Glucose 155 H Lactic Acid Calcium Ionized Calcium Phosphorus Magnesium Iron TIBC Ferritin Total Bilirubin Direct Bilirubin 0.4 H AST 63 H ALT Alkaline Phosphatase Total Creatine Kinase CK-MB (CK-2) Troponin T C-Reactive Protein Total Protein 4.9 L Albumin 2.2 L Triglycerides LDL Cholesterol Direct HDL Cholesterol Free T4 PTH Intact Urine WBC (Auto) Urine Creatinine Salicylates Acetaminophen Crossmatch 03/31/19 03/31/19 03/31/19 04:44 05:44 08:20 WBC RBC Hgb Hct MCV RDW Plt Count Lymph % (Auto) [place] % (Auto) Lymph # Seg Neutrophils % Seg Neuts % (Manual) Lymphocytes % (Manual) Monocytes % (Manual) Nucleated RBC % Seg Neutrophils # Seg Neutrophils # Man Lymphocytes # (Manual) Monocytes # (Manual) PT INR D-Dimer Heparin Anti-Xa Level POC ABG pH ABG pH POC ABG pCO2 53.5 H POC ABG pO2 62 L ABG pO2 ABG HCO3 ABG O2 Saturation ABG Base Excess ABG Hemoglobin Oxyhemoglobin Sodium 135 L Potassium Chloride 96.7 L Carbon Dioxide 19 L BUN 94 H Creatinine 7.8 H Glucose POC Glucose Lactic Acid Calcium 5.3 L* Ionized Calcium Phosphorus 8.20 H Magnesium Iron TIBC Ferritin Total Bilirubin Direct Bilirubin 0.4 H AST 60 H ALT Alkaline Phosphatase Total Creatine Kinase CK-MB (CK-2) Troponin T C-Reactive Protein Total Protein 4.8 L Albumin 2.1 L Triglycerides LDL Cholesterol Direct HDL Cholesterol Free T4 PTH Intact Urine WBC (Auto) Urine Creatinine Salicylates Acetaminophen Crossmatch 03/31/19 04/01/19 04/01/19 22:14 04:27 04:27 WBC RBC 2.60 L Hgb 8.0 L Hct 24.1 L MCV RDW 15.7 H Plt Count Lymph % (Auto) 7.9 L [place] % (Auto) Lymph # 0.7 L Seg Neutrophils % 83.6 H Seg Neuts % (Manual) Lymphocytes % (Manual) Monocytes % (Manual) Nucleated RBC % Seg Neutrophils # Seg Neutrophils # Man Lymphocytes # (Manual) Monocytes # (Manual) PT INR D-Dimer Heparin Anti-Xa Level POC ABG pH 7.286 L ABG pH POC ABG pCO2 54.7 H POC ABG pO2 179 H ABG pO2 ABG HCO3 ABG O2 Saturation ABG Base Excess ABG Hemoglobin Oxyhemoglobin Sodium Potassium Chloride Carbon Dioxide BUN 68 H Creatinine 6.6 H Glucose POC Glucose Lactic Acid Calcium 6.5 L D Ionized Calcium Phosphorus 7.30 H Magnesium Iron TIBC Ferritin Total Bilirubin Direct Bilirubin AST ALT Alkaline Phosphatase Total Creatine Kinase 1652 H CK-MB (CK-2) Troponin T C-Reactive Protein Total Protein Albumin Triglycerides LDL Cholesterol Direct HDL Cholesterol Free T4 PTH Intact Urine WBC (Auto) Urine Creatinine Salicylates Acetaminophen Crossmatch 04/01/19 04/01/19 04/01/19 05:14 05:37 18:37 WBC RBC Hgb Hct MCV RDW Plt Count Lymph % (Auto) [place] % (Auto) Lymph # Seg Neutrophils % Seg Neuts % (Manual) Lymphocytes % (Manual) Monocytes % (Manual) Nucleated RBC % Seg Neutrophils # Seg Neutrophils # Man Lymphocytes # (Manual) Monocytes # (Manual) PT INR D-Dimer Heparin Anti-Xa Level POC ABG pH 7.283 L ABG pH POC ABG pCO2 53.4 H POC ABG pO2 241 H ABG pO2 ABG HCO3 ABG O2 Saturation ABG Base Excess ABG Hemoglobin Oxyhemoglobin Sodium Potassium Chloride Carbon Dioxide BUN Creatinine Glucose POC Glucose 111 H 119 H Lactic Acid Calcium Ionized Calcium Phosphorus Magnesium Iron TIBC Ferritin Total Bilirubin Direct Bilirubin AST ALT Alkaline Phosphatase Total Creatine Kinase CK-MB (CK-2) Troponin T C-Reactive Protein Total Protein Albumin Triglycerides LDL Cholesterol Direct HDL Cholesterol Free T4 PTH Intact Urine WBC (Auto) Urine Creatinine Salicylates Acetaminophen Crossmatch 04/01/19 04/02/19 04/02/19 21:28 04:40 05:03 WBC RBC 2.36 L Hgb 7.2 L Hct 21.9 L MCV RDW 16.0 H Plt Count Lymph % (Auto) 10.8 L [place] % (Auto) Lymph # 0.8 L Seg Neutrophils % 80.3 H Seg Neuts % (Manual) Lymphocytes % (Manual) Monocytes % (Manual) Nucleated RBC % Seg Neutrophils # Seg Neutrophils # Man Lymphocytes # (Manual) Monocytes # (Manual) PT INR D-Dimer Heparin Anti-Xa Level POC ABG pH 7.299 L 7.300 L ABG pH POC ABG pCO2 48.2 H 45.2 H POC ABG pO2 133 H 107 H ABG pO2 ABG HCO3 ABG O2 Saturation ABG Base Excess ABG Hemoglobin Oxyhemoglobin Sodium Potassium Chloride Carbon Dioxide BUN Creatinine Glucose POC Glucose Lactic Acid Calcium Ionized Calcium Phosphorus Magnesium Iron TIBC Ferritin Total Bilirubin Direct Bilirubin AST ALT Alkaline Phosphatase Total Creatine Kinase CK-MB (CK-2) Troponin T C-Reactive Protein Total Protein Albumin Triglycerides LDL Cholesterol Direct HDL Cholesterol Free T4 PTH Intact Urine WBC (Auto) Urine Creatinine Salicylates Acetaminophen Crossmatch 04/02/19 04/02/19 04/02/19 05:03 05:03 12:15 WBC RBC Hgb 7.4 L Hct 22.6 L MCV RDW Plt Count Lymph % (Auto) [place] % (Auto) Lymph # Seg Neutrophils % Seg Neuts % (Manual) Lymphocytes % (Manual) Monocytes % (Manual) Nucleated RBC % Seg Neutrophils # Seg Neutrophils # Man Lymphocytes # (Manual) Monocytes # (Manual) PT INR D-Dimer Heparin Anti-Xa Level POC ABG pH ABG pH POC ABG pCO2 POC ABG pO2 ABG pO2 ABG HCO3 ABG O2 Saturation ABG Base Excess ABG Hemoglobin Oxyhemoglobin Sodium 136 L Potassium Chloride 97.8 L Carbon Dioxide 18 L BUN 82 H Creatinine 8.2 H Glucose POC Glucose Lactic Acid Calcium 6.7 L Ionized Calcium Phosphorus 7.50 H Magnesium Iron 26 L TIBC 138 L Ferritin 607.0 H Total Bilirubin Direct Bilirubin AST ALT Alkaline Phosphatase Total Creatine Kinase CK-MB (CK-2) Troponin T C-Reactive Protein Total Protein Albumin Triglycerides LDL Cholesterol Direct HDL Cholesterol Free T4 PTH Intact Urine WBC (Auto) Urine Creatinine Salicylates Acetaminophen Crossmatch 04/02/19 04/02/1904/03/19 16:34 17:14 04:18 WBC RBC Hgb Hct MCV RDW Plt Count Lymph % (Auto) [place] % (Auto) Lymph # Seg Neutrophils % Seg Neuts % (Manual) Lymphocytes % (Manual) Monocytes % (Manual) Nucleated RBC % Seg Neutrophils # Seg Neutrophils # Man Lymphocytes # (Manual) Monocytes # (Manual) PT INR D-Dimer Heparin Anti-Xa Level POC ABG pH ABG pH POC ABG pCO2 POC ABG pO2 146 H ABG pO2 ABG HCO3 ABG O2 Saturation ABG Base Excess ABG Hemoglobin Oxyhemoglobin Sodium Potassium Chloride Carbon Dioxide BUN Creatinine Glucose POC Glucose 108 H Lactic Acid Calcium Ionized Calcium Phosphorus Magnesium Iron TIBC Ferritin Total Bilirubin Direct Bilirubin AST ALT Alkaline Phosphatase Total Creatine Kinase CK-MB (CK-2) Troponin T C-Reactive Protein Total Protein Albumin Triglycerides LDL Cholesterol Direct HDL Cholesterol Free T4 PTH Intact Urine WBC (Auto) Urine Creatinine Salicylates Acetaminophen Crossmatch See Detail 04/03/19 04/03/19 04/03/19 04:25 08:30 18:24 WBC RBC 2.40 L Hgb 7.3 L Hct 21.9 L MCV RDW Plt Count Lymph % (Auto) [place] % (Auto) 7.7 H Lymph # 0.9 L Seg Neutrophils % 74.6 H Seg Neuts % (Manual) Lymphocytes % (Manual) Monocytes % (Manual) Nucleated RBC % Seg Neutrophils # Seg Neutrophils # Man Lymphocytes # (Manual) Monocytes # (Manual) PT INR D-Dimer Heparin Anti-Xa Level POC ABG pH ABG pH POC ABG pCO2 POC ABG pO2 ABG pO2 ABG HCO3 ABG O2 Saturation ABG Base Excess ABG Hemoglobin Oxyhemoglobin Sodium 136 L Potassium Chloride 97.0 L Carbon Dioxide BUN 58 H Creatinine 7.3 H Glucose POC Glucose 106 H Lactic Acid Calcium 7.5 L Ionized Calcium Phosphorus 5.80 H D Magnesium Iron TIBC Ferritin Total Bilirubin Direct Bilirubin AST ALT Alkaline Phosphatase Total Creatine Kinase CK-MB (CK-2) Troponin T C-Reactive Protein Total Protein Albumin Triglycerides LDL Cholesterol Direct HDL Cholesterol Free T4 PTH Intact Urine WBC (Auto) Urine Creatinine Salicylates Acetaminophen Crossmatch 04/03/19 04/04/19 04/04/19 23:43 04:47 04:47 WBC RBC 2.72 L Hgb 8.3 L Hct 24.7 L MCV RDW 15.6 H Plt Count Lymph % (Auto) [place] % (Auto) 10.1 H Lymph # 0.8 L Seg Neutrophils % 71.4 H Seg Neuts % (Manual) Lymphocytes % (Manual) Monocytes % (Manual) Nucleated RBC % Seg Neutrophils # Seg Neutrophils # Man Lymphocytes # (Manual) Monocytes # (Manual) PT INR D-Dimer Heparin Anti-Xa Level POC ABG pH ABG pH POC ABG pCO2 POC ABG pO2 ABG pO2 123.8 H ABG HCO3 ABG O2 Saturation ABG Base Excess -3.0 L ABG Hemoglobin 7.9 L Oxyhemoglobin Sodium 134 L Potassium Chloride 97.9 L Carbon Dioxide BUN 64 H Creatinine 8.1 H Glucose POC Glucose Lactic Acid Calcium 7.2 L Ionized Calcium Phosphorus Magnesium Iron TIBC Ferritin Total Bilirubin Direct Bilirubin AST ALT Alkaline Phosphatase Total Creatine Kinase CK-MB (CK-2) Troponin T C-Reactive Protein Total Protein Albumin Triglycerides LDL Cholesterol Direct HDL Cholesterol Free T4 PTH Intact Urine WBC (Auto) Urine Creatinine Salicylates Acetaminophen Crossmatch 04/04/19 04/04/19 04/04/19 06:07 13:40 18:18 WBC RBC Hgb Hct MCV RDW Plt Count Lymph % (Auto) [place] % (Auto) Lymph # Seg Neutrophils % Seg Neuts % (Manual) Lymphocytes % (Manual) Monocytes % (Manual) Nucleated RBC % Seg Neutrophils # Seg Neutrophils # Man Lymphocytes # (Manual) Monocytes # (Manual) PT INR D-Dimer Heparin Anti-Xa Level POC ABG pH ABG pH POC ABG pCO2 POC ABG pO2 ABG pO2 95.9 H ABG HCO3 ABG O2 Saturation ABG Base Excess -3.0 L ABG Hemoglobin 8.5 L Oxyhemoglobin Sodium Potassium Chloride Carbon Dioxide BUN Creatinine Glucose POC Glucose 107 H 107 H Lactic Acid Calcium Ionized Calcium Phosphorus Magnesium Iron TIBC Ferritin Total Bilirubin Direct Bilirubin AST ALT Alkaline Phosphatase Total Creatine Kinase CK-MB (CK-2) Troponin T C-Reactive Protein Total Protein Albumin Triglycerides LDL Cholesterol Direct HDL Cholesterol Free T4 PTH Intact Urine WBC (Auto) Urine Creatinine Salicylates Acetaminophen Crossmatch 04/04/19 04/05/19 04/05/19 21:22 04:09 04:09 WBC RBC 2.76 L Hgb 8.4 L Hct 25.4 L MCV RDW 15.8 H Plt Count 133 L Lymph % (Auto) [place] % (Auto) 9.6 H Lymph # 0.7 L Seg Neutrophils % 72.6 H Seg Neuts % (Manual) Lymphocytes % (Manual) Monocytes % (Manual) Nucleated RBC % Seg Neutrophils # Seg Neutrophils # Man Lymphocytes # (Manual) Monocytes # (Manual) PT INR D-Dimer Heparin Anti-Xa Level POC ABG pH ABG pH POC ABG pCO2 47.2 H POC ABG pO2 137 H ABG pO2 ABG HCO3 ABG O2 Saturation ABG Base Excess ABG Hemoglobin Oxyhemoglobin Sodium 136 L Potassium Chloride Carbon Dioxide BUN 46 H Creatinine 6.7 H Glucose POC Glucose Lactic Acid Calcium 7.7 L Ionized Calcium Phosphorus Magnesium Iron TIBC Ferritin Total Bilirubin Direct Bilirubin AST ALT Alkaline Phosphatase Total Creatine Kinase CK-MB (CK-2) Troponin T C-Reactive Protein Total Protein Albumin Triglycerides LDL Cholesterol Direct HDL Cholesterol Free T4 PTH Intact Urine WBC (Auto) Urine Creatinine Salicylates Acetaminophen Crossmatch 04/05/19 04/05/19 04/05/19 05:28 06:14 16:50 WBC RBC Hgb Hct MCV RDW Plt Count Lymph % (Auto) [place] % (Auto) Lymph # Seg Neutrophils % Seg Neuts % (Manual) Lymphocytes % (Manual) Monocytes % (Manual) Nucleated RBC % Seg Neutrophils # Seg Neutrophils # Man Lymphocytes # (Manual) Monocytes # (Manual) PT INR D-Dimer Heparin Anti-Xa Level POC ABG pH ABG pH POC ABG pCO2 POC ABG pO2 67 L ABG pO2 ABG HCO3 ABG O2 Saturation ABG Base Excess ABG Hemoglobin Oxyhemoglobin Sodium Potassium Chloride Carbon Dioxide BUN Creatinine Glucose POC Glucose 108 H Lactic Acid Calcium Ionized Calcium Phosphorus Magnesium Iron TIBC Ferritin Total Bilirubin Direct Bilirubin AST ALT Alkaline Phosphatase Total Creatine Kinase CK-MB (CK-2) Troponin T C-Reactive Protein Total Protein Albumin Triglycerides LDL Cholesterol Direct HDL Cholesterol Free T4 PTH Intact Urine WBC (Auto) 40.0 H Urine Creatinine Salicylates Acetaminophen Crossmatch 04/05/19 04/06/19 04/06/19 17:22 00:13 04:44 WBC RBC 2.48 L Hgb 7.5 L Hct 22.9 L MCV RDW 16.0 H Plt Count 107 L Lymph % (Auto) [place] % (Auto) 10.7 H Lymph # 1.0 L Seg Neutrophils % Seg Neuts % (Manual) Lymphocytes % (Manual) Monocytes % (Manual) Nucleated RBC % Seg Neutrophils # Seg Neutrophils # Man Lymphocytes # (Manual) Monocytes # (Manual) PT INR D-Dimer Heparin Anti-Xa Level POC ABG pH ABG pH POC ABG pCO2 POC ABG pO2 ABG pO2 ABG HCO3 ABG O2 Saturation ABG Base Excess ABG Hemoglobin Oxyhemoglobin Sodium Potassium Chloride Carbon Dioxide BUN Creatinine Glucose POC Glucose 118 H 138 H Lactic Acid Calcium Ionized Calcium Phosphorus Magnesium Iron TIBC Ferritin Total Bilirubin Direct Bilirubin AST ALT Alkaline Phosphatase Total Creatine Kinase CK-MB (CK-2) Troponin T C-Reactive Protein Total Protein Albumin Triglycerides LDL Cholesterol Direct HDL Cholesterol Free T4 PTH Intact Urine WBC (Auto) Urine Creatinine Salicylates Acetaminophen Crossmatch 04/06/19 04/06/19 04/06/19 04:44 05:20 05:23 WBC RBC Hgb Hct MCV RDW Plt Count Lymph % (Auto) [place] % (Auto) Lymph # Seg Neutrophils % Seg Neuts % (Manual) Lymphocytes % (Manual) Monocytes % (Manual) Nucleated RBC % Seg Neutrophils # Seg Neutrophils # Man Lymphocytes # (Manual) Monocytes # (Manual) PT INR D-Dimer Heparin Anti-Xa Level POC ABG pH ABG pH POC ABG pCO2 POC ABG pO2 ABG pO2 104.0 H ABG HCO3 ABG O2 Saturation ABG Base Excess -2.1 L ABG Hemoglobin 7.3 L Oxyhemoglobin Sodium Potassium Chloride Carbon Dioxide BUN 64 H Creatinine 8.2 H Glucose 103 H POC Glucose 118 H Lactic Acid Calcium 7.3 L Ionized Calcium Phosphorus Magnesium Iron TIBC Ferritin Total Bilirubin Direct Bilirubin AST ALT Alkaline Phosphatase Total Creatine Kinase CK-MB (CK-2) Troponin T C-Reactive Protein Total Protein Albumin Triglycerides LDL Cholesterol Direct HDL Cholesterol Free T4 PTH Intact Urine WBC (Auto) Urine Creatinine Salicylates Acetaminophen Crossmatch 04/06/19 04/07/19 04/07/19 12:02 05:40 05:40 WBC RBC 2.59 L Hgb 7.9 L Hct 23.8 L MCV RDW 15.8 H Plt Count 89 L Lymph % (Auto) [place] % (Auto) 10.3 H Lymph # 1.1 L Seg Neutrophils % Seg Neuts % (Manual) Lymphocytes % (Manual) Monocytes % (Manual) Nucleated RBC % Seg Neutrophils # Seg Neutrophils # Man Lymphocytes # (Manual) Monocytes # (Manual) PT INR D-Dimer Heparin Anti-Xa Level POC ABG pH ABG pH POC ABG pCO2 POC ABG pO2 ABG pO2 ABG HCO3 ABG O2 Saturation ABG Base Excess ABG Hemoglobin Oxyhemoglobin Sodium 136 L Potassium 3.5 L Chloride Carbon Dioxide BUN 46 H Creatinine 6.2 H Glucose POC Glucose 108 H Lactic Acid Calcium 7.9 L Ionized Calcium Phosphorus Magnesium Iron TIBC Ferritin Total Bilirubin Direct Bilirubin AST ALT Alkaline Phosphatase Total Creatine Kinase CK-MB (CK-2) Troponin T C-Reactive Protein Total Protein Albumin Triglycerides LDL Cholesterol Direct HDL Cholesterol Free T4 PTH Intact Urine WBC (Auto) Urine Creatinine Salicylates Acetaminophen Crossmatch 04/07/19 04/09/19 04/09/19 12:57 04:28 04:28 WBC RBC 2.85 L Hgb 8.7 L Hct 26.2 L MCV RDW 15.6 H Plt Count Lymph % (Auto) [place] % (Auto) 10.4 H Lymph # 1.0 L Seg Neutrophils % 73.3 H Seg Neuts % (Manual) Lymphocytes % (Manual) Monocytes % (Manual) Nucleated RBC % Seg Neutrophils # Seg Neutrophils # Man Lymphocytes # (Manual) Monocytes # (Manual) PT INR D-Dimer Heparin Anti-Xa Level POC ABG pH ABG pH POC ABG pCO2 POC ABG pO2 107 H ABG pO2 ABG HCO3 ABG O2 Saturation ABG Base Excess ABG Hemoglobin Oxyhemoglobin Sodium Potassium 3.5 L Chloride 97.8 L Carbon Dioxide BUN 62 H Creatinine 8.1 H Glucose POC Glucose Lactic Acid Calcium 8.2 L Ionized Calcium Phosphorus 5.10 H Magnesium Iron TIBC Ferritin Total Bilirubin Direct Bilirubin AST ALT Alkaline Phosphatase Total Creatine Kinase CK-MB (CK-2) Troponin T C-Reactive Protein Total Protein Albumin Triglycerides LDL Cholesterol Direct HDL Cholesterol Free T4 PTH Intact Urine WBC (Auto) Urine Creatinine Salicylates Acetaminophen Crossmatch 04/10/19 04/11/19 04/11/19 18:15 00:25 04:16 WBC 11.5 H RBC 2.91 L Hgb 8.9 L Hct 27.6 L MCV 95 H RDW 17.5 H Plt Count Lymph % (Auto) [place] % (Auto) Lymph # Seg Neutrophils % Seg Neuts % (Manual) 71.0 H Lymphocytes % (Manual) Monocytes % (Manual) 8.0 H Nucleated RBC % Seg Neutrophils # Seg Neutrophils # Man 8.2 H Lymphocytes # (Manual) Monocytes # (Manual) 0.9 H PT INR D-Dimer Heparin Anti-Xa Level POC ABG pH ABG pH POC ABG pCO2 POC ABG pO2 ABG pO2 ABG HCO3 ABG O2 Saturation ABG Base Excess ABG Hemoglobin Oxyhemoglobin Sodium Potassium Chloride Carbon Dioxide BUN Creatinine Glucose POC Glucose 109 H 114 H Lactic Acid Calcium Ionized Calcium Phosphorus Magnesium Iron TIBC Ferritin Total Bilirubin Direct Bilirubin AST ALT Alkaline Phosphatase Total Creatine Kinase CK-MB (CK-2) Troponin T C-Reactive Protein Total Protein Albumin Triglycerides LDL Cholesterol Direct HDL Cholesterol Free T4 PTH Intact Urine WBC (Auto) Urine Creatinine Salicylates Acetaminophen Crossmatch 04/11/19 04/11/19 04/11/19 06:47 09:21 12:15 WBC RBC Hgb Hct MCV RDW Plt Count Lymph % (Auto) [place] % (Auto) Lymph # Seg Neutrophils % Seg Neuts % (Manual) Lymphocytes % (Manual) Monocytes % (Manual) Nucleated RBC % Seg Neutrophils # Seg Neutrophils # Man Lymphocytes # (Manual) Monocytes # (Manual) PT INR D-Dimer Heparin Anti-Xa Level POC ABG pH ABG pH POC ABG pCO2 POC ABG pO2 ABG pO2 ABG HCO3 ABG O2 Saturation ABG Base Excess ABG Hemoglobin Oxyhemoglobin Sodium Potassium 3.5 L Chloride Carbon Dioxide BUN 45 H Creatinine 6.0 H Glucose 113 H POC Glucose 106 H 109 H Lactic Acid Calcium Ionized Calcium Phosphorus Magnesium Iron TIBC Ferritin Total Bilirubin Direct Bilirubin AST ALT Alkaline Phosphatase Total Creatine Kinase CK-MB (CK-2) Troponin T C-Reactive Protein Total Protein Albumin Triglycerides LDL Cholesterol Direct HDL Cholesterol Free T4 PTH Intact Urine WBC (Auto) Urine Creatinine Salicylates Acetaminophen Crossmatch Chest x-ray: report reviewed (Subsegmental atelectasis.), image reviewed Allied health notes reviewed: RT
--- NOTE | 2019-04-11 19:05 | Progress Note ---
Assessment and Plan Assessment and plan: The high probability of a clinically significant, sudden or life threatening deterioration of the [] system(s) required my full and direct attention, intervention and personal management. The aggregate critical care time was [] minutes. This time is in addition to time spent performing reported procedures but includes the following: [x] Data Review and interpretation [x] Patient assessment and monitoring of vital signs [x] Documentation [x] Medication orders and management 43-year-old gentleman morbidly obesity presents in SVT with heart rate of 250 found to be in septic shock. #1 acute hypoxic respiratory failure arts patient self extubated himself. Appears to be stable oxygenation [place] this time. #2 atrial fibrillation patient was irregular CONTINUE AMIODARONE DRIP. October GE TO BY MOUTH TITRATED UP ON BETA WISAM. CARDIOLOGY FOLLOWING. Dysarthria ventricular tachycardia resolved. 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 Patient is edematous throughout marked ascites throughout. 5 GI blood loss anemia secondary to peptic ulcer disease patient EGD consistent with this. Continue to follow ABC and bleeding. # 6 septic shock multifactorial. Continue present broad-spectrum antibiotics. 7 Acute Kidney Injury Patient Currently on Hemodialysis Now. Edematous Will Help with Fluid with Dialysis. 8 thrombocytopenia secondary to sepsis. Continue to monitor platelets. Treat underlying etiology of sepsis. Patient overall prognosis is extremely poor developing wounds. Unable to eat. Marked ascites acute hypoxic respiratory failure. History Interval history: Patient today appears a little more alert. After screaming patient's name is sternal rub he will look into an attempt open his eyes and say hello. Hospital course complicated overnight by uncontrolled heart rate. I continue patient on amiodarone drip over p.m. Because of heart rate going from 150s 180 down to 80s. Patient is edematous and looks acutely ill. Hospitalist Physical - Constitutional Vitals: Temp Pulse Resp BP Pulse Ox 99.0 F 143 H 16 157/97 99 04/11/19 16:45 04/11/19 18:00 04/11/19 18:00 04/11/19 18:00 04/11/19 18:00 General appearance: Present: no acute distress, other - EENT Eyes: Present: PERRL, EOM intact ENT: hearing intact, poor dentition, other (lip excoriation) - Neck Neck: Present: supple, normal ROM. Absent: enlarged thyroid, masses or JVD, cervical LAD, carotid bruits - Respiratory Respiratory: bilateral: diminished, rhonchi, wheezing, other (poor inspiratory effort.) - Cardiovascular Rhythm: irregularly irregular Heart Sounds: Present: S1 & S2 - Extremities Extremities: no ischemia, normal temperature Extremity abnormal: edema, cyanosis, ulceration, other (tinea infection in the intertriginous areas.) - Abdominal General gastrointestinal: tender, distended, normal bowel sounds, no hepatomegaly, no splenomegaly - Integumentary Integumentary: Present: erythema, rash - Psychiatric Psychiatric: other (she is a little more responsive and alert. Unable to determine judgment.) - Neurologic Neurologic: other (it has1 on left arm. Unsure of exact etiology. Local wound care.) Results - Labs CBC & Chem 7: 04/11/19 04:16 04/11/19 09:21 Labs: Laboratory Last Values WBC 11.5 K/mm3 (4.5-11.0) H 04/11/19 04:16 RBC 2.91 M/mm3 (3.65-5.03) L 04/11/19 04:16 Hgb 8.9 gm/dl (11.8-15.2) L 04/11/19 04:16 Hct 27.6 % (35.5-45.6) L 04/11/19 04:16 MCV 95 fl (84-94) H 04/11/19 04:16 MCH 31 pg (28-32) 04/11/19 04:16 MCHC 32 % (32-34) 04/11/19 04:16 RDW 17.5 % (13.2-15.2) H 04/11/19 04:16 Plt Count 177 K/mm3 (140-440) 04/11/19 04:16 Lymph % (Auto) 13.4 % (13.4-35.0) 04/09/19 04:28 Rich % (Auto) 10.4 % (0.0-7.3) H 04/09/19 04:28 Eos % (Auto) 2.1 % (0.0-4.3) 04/09/19 04:28 Baso % (Auto) 0.8 % (0.0-1.8) 04/09/19 04:28 Lymph # 1.0 K/mm3 (1.2-5.4) L 04/09/19 04:28 Rich # 0.8 K/mm3 (0.0-0.8) 04/09/19 04:28 Eos # 0.2 K/mm3 (0.0-0.4) 04/09/19 04:28 Baso # 0.1 K/mm3 (0.0-0.1) 04/09/19 04:28 Add Manual Diff Complete 04/11/19 04:16 Total Counted 100 04/11/19 04:16 Seg Neutrophils % 73.3 % (40.0-70.0) H 04/09/19 04:28 Seg Neuts % (Manual) 71.0 % (40.0-70.0) H 04/11/19 04:16 Band Neutrophils % 1.0 % 04/11/19 04:16 Lymphocytes % (Manual) 17.0 % (13.4-35.0) 04/11/19 04:16 Reactive Lymphs % (Man) 0 % 04/11/19 04:16 Monocytes % (Manual) 8.0 % (0.0-7.3) H 04/11/19 04:16 Eosinophils % (Manual) 2.0 % (0.0-4.3) 04/11/19 04:16 Basophils % (Manual) 1.0 % (0.0-1.8) 04/11/19 04:16 Metamyelocytes % 0 % 04/11/19 04:16 Myelocytes % 0 % 04/11/19 04:16 Promyelocytes % 0 % 04/11/19 04:16 Blast Cells % 0 % 04/11/19 04:16 Nucleated RBC % Not Reportable 04/11/19 04:16 Seg Neutrophils # 5.5 K/mm3 (1.8-7.7) 04/09/19 04:28 Seg Neutrophils # Man 8.2 K/mm3 (1.8-7.7) H 04/11/19 04:16 Band Neutrophils # 0.1 K/mm3 04/11/19 04:16 Lymphocytes # (Manual) 2.0 K/mm3 (1.2-5.4) 04/11/19 04:16 Abs React Lymphs (Man) 0.0 K/mm3 04/11/19 04:16 Monocytes # (Manual) 0.9 K/mm3 (0.0-0.8) H 04/11/19 04:16 Eosinophils # (Manual) 0.2 K/mm3 (0.0-0.4) 04/11/19 04:16 Basophils # (Manual) 0.1 K/mm3 (0.0-0.1) 04/11/19 04:16 Metamyelocytes # 0.0 K/mm3 04/11/19 04:16 Myelocytes # 0.0 K/mm3 04/11/19 04:16 Promyelocytes # 0.0 K/mm3 04/11/19 04:16 Blast Cells # 0.0 K/mm3 04/11/19 04:16 WBC Morphology Not Reportable 04/11/19 04:16 Hypersegmented Neuts Not Reportable 04/11/19 04:16 Hyposegmented Neuts Not Reportable 04/11/19 04:16 Hypogranular Neuts Not Reportable 04/11/19 04:16 Smudge Cells Not Reportable 04/11/19 04:16 Toxic Granulation Not Reportable 04/11/19 04:16 Toxic Vacuolation Not Reportable 04/11/19 04:16 Dohle Bodies Not Reportable 04/11/19 04:16 Pelger-Huet Anomaly Not Reportable 04/11/19 04:16 Joyce Rods Not Reportable 04/11/19 04:16 Platelet Estimate Consistent w auto 04/11/19 04:16 Clumped Platelets Not Reportable 04/11/19 04:16 Plt Clumps, EDTA Not Reportable 04/11/19 04:16 Large Platelets Not Reportable 04/11/19 04:16 Giant Platelets Not Reportable 04/11/19 04:16 Platelet Satelliting Not Reportable 04/11/19 04:16 Plt Morphology Comment Not Reportable 04/11/19 04:16 RBC Morphology Not Reportable 04/11/19 04:16 Dimorphic RBCs Not Reportable 04/11/19 04:16 Polychromasia Not Reportable 04/11/19 04:16 Hypochromasia Not Reportable 04/11/19 04:16 Poikilocytosis Not Reportable 04/11/19 04:16 Anisocytosis Rare 04/11/19 04:16 Microcytosis Rare 04/11/19 04:16 Macrocytosis Not Reportable 04/11/19 04:16 Spherocytes Not Reportable 04/11/19 04:16 Pappenheimer Bodies Not Reportable 04/11/19 04:16 Sickle Cells Not Reportable 04/11/19 04:16 Target Cells Not Reportable 04/11/19 04:16 Tear Drop Cells Not Reportable 04/11/19 04:16 Ovalocytes Not Reportable 04/11/19 04:16 Stomatocytes Few 03/26/19 Unknown Helmet Cells Not Reportable 04/11/19 04:16 Shrestha-Draper Bodies Not Reportable 04/11/19 04:16 [place] Rings Not Reportable 04/11/19 04:16 [place] Cells Not Reportable 04/11/19 04:16 Bite Cells Not Reportable 04/11/19 04:16 Crenated Cell Not Reportable 04/11/19 04:16 Elliptocytes Not Reportable 04/11/19 04:16 Acanthocytes (Spur) Not Reportable 04/11/19 04:16 Rouleaux Not Reportable 04/11/19 04:16 Hemoglobin C Crystals Not Reportable 04/11/19 04:16 Schistocytes Not Reportable 04/11/19 04:16 Malaria parasites Not Reportable 04/11/19 04:16 Phil Bodies Not Reportable 04/11/19 04:16 Hem Pathologist Commnt No 04/11/19 04:16 PT 15.3 Sec. (12.2-14.9) H 03/29/19 11:48 INR 1.24 (0.87-1.13) H 03/29/19 11:48 APTT 26.6 Sec. (24.2-36.6) 03/28/19 12:00 Fibrinogen 226 mg/dl (211-480) 03/28/19 12:00 D-Dimer 4845.98 ng/mlDDU (0-234) H 03/28/19 12:00 Heparin Anti-Xa Level 0.23 U.I./ml (0.3-0.7) L 03/28/19 05:13 POC ABG pH 7.401 (7.35-7.45) 04/07/19 12:57 ABG pH 7.388 pH Units (7.350-7.450) 04/06/19 05:20 POC ABG pCO2 41.5 (35-45) 04/07/19 12:57 ABG pCO2 38.5 mm Hg 04/06/19 05:20 POC ABG pO2 107 (80-105) H 04/07/19 12:57 ABG pO2 104.0 mm Hg (80.0-90.0) H 04/06/19 05:20 POC ABG HCO3 25.7 (22-26 mml/L) 04/07/19 12:57 ABG HCO3 22.6 mmol/L (20.0-26.0) 04/06/19 05:20 POC ABG Total CO2 27 (23-27mmol/L) 04/07/19 12:57 POC ABG O2 Sat 98 04/07/19 12:57 ABG O2 Saturation 97.8 % (95.0-99.0) 04/06/19 05:20 ABG O2 Content 10.0 (0.0-44) 04/06/19 05:20 POC ABG Base Excess 1 ((-2) - (+3)mmol/L) 04/07/19 12:57 ABG Base Excess -2.1 mmol/L (-2.0-3.0) L 04/06/19 05:20 ABG Hemoglobin 7.3 gm/dl (14.0-18.0) L 04/06/19 05:20 ABG Carboxyhemoglobin 1.7 % (0.0-5.0) 04/06/19 05:20 ABG Methemoglobin 0.6 % (0.0-1.5) 04/06/19 05:20 Oxyhemoglobin 95.5 % (95.0-99.0) 04/06/19 05:20 FiO2 30 % 04/07/19 12:57 Sodium 140 mmol/L (137-145) 04/11/19 09:21 Potassium 3.5 mmol/L (3.6-5.0) L 04/11/19 09:21 Chloride 100.2 mmol/L (98-107) 04/11/19 09:21 Carbon Dioxide 23 mmol/L (22-30) 04/11/19 09:21 Anion Gap 20 mmol/L 04/11/19 09:21 BUN 45 mg/dL (9-20) H 04/11/19 09:21 Creatinine 6.0 mg/dL (0.8-1.5) H 04/11/19 09:21 Estimated GFR 10 ml/min 04/11/19 09:21 BUN/Creatinine Ratio 8 % 04/11/19 09:21 Glucose 113 mg/dL (75-100) H 04/11/19 09:21 POC Glucose 109 (70-105) H 04/11/19 12:15 Lactic Acid 1.90 mmol/L (0.7-2.0) 03/21/19 21:31 Calcium 8.9 mg/dL (8.4-10.2) 04/11/19 09:21 Ionized Calcium 3.7 mg/dL (4.8-5.6) L 03/30/19 12:09 Phosphorus 5.10 mg/dL (2.5-4.5) H 04/09/19 04:28 Magnesium 1.90 mg/dL (1.7-2.3) 03/31/19 15:07 Iron 26 ug/dL (49-181) L 04/02/19 05:03 TIBC 138 mcg/dL (250-450) L 04/02/19 05:03 Ferritin 607.0 ng/mL (13.0-400.0) H 04/02/19 05:03 Total Bilirubin TNR 04/11/19 04:16 Direct Bilirubin 0.4 mg/dL (0-0.2) H 03/31/19 08:20 Indirect Bilirubin 0.1 mg/dL 03/31/19 08:20 AST TNR 04/11/19 04:16 ALT TNR 04/11/19 04:16 Alkaline Phosphatase TNR 04/11/19 04:16 Total Creatine Kinase 62 units/L (55-170) 04/07/19 05:40 CK-MB (CK-2) 54.3 ng/mL (0.0-4.0) H 03/17/19 07:16 CK-MB (CK-2) Rel Index 0.0 (0-4) 03/17/19 07:16 Troponin T 0.058 ng/mL (0.00-0.029) H 03/17/19 07:16 C-Reactive Protein 13.30 mg/dL (0.00-1.30) H 03/20/19 14:45 Total Protein TNR 04/11/19 04:16 Albumin TNR 04/11/19 04:16 Albumin/Globulin Ratio TNR 04/11/19 04:16 Triglycerides 309 mg/dL (2-149) H 03/29/19 06:22 Cholesterol 88 mg/dL (50-199) 03/16/19 22:32 LDL Cholesterol Direct 10 mg/dL (50-130) L 03/16/19 22:32 HDL Cholesterol 7 mg/dL (40-59) L 03/16/19 22:32 Cholesterol/HDL Ratio 12.57 % 03/16/19 22:32 Vitamin B12 903.0 pg/mL (211-911) 04/02/19 05:03 Folate 8.05 ng/mL (7.3-26.0) 04/02/19 05:03 Procalcitonin 25.42 ng/mL (<0.15) 03/27/19 19:21 TSH 2.200 mlU/mL (0.270-4.200) 03/16/19 17:05 Free T4 0.72 ng/dL (0.76-1.46) L 03/16/19 17:05 PTH Intact 329.9 pg/mL (15-65) H 03/25/19 05:00 Urine Color Kathy (Yellow) 04/05/19 16:50 Urine Turbidity Cloudy (Clear) 04/05/19 16:50 Urine pH 5.0 (5.0-7.0) 04/05/19 16:50 Ur Specific [place] 1.018 (1.003-1.030) 04/05/19 16:50 Urine Protein 100 mg/dl mg/dL (Negative) 04/05/19 16:50 Urine Glucose (UA) Neg mg/dL (Negative) 04/05/19 16:50 Urine Ketones Neg mg/dL (Negative) 04/05/19 16:50 Urine Blood Lg (Negative) 04/05/19 16:50 Urine Nitrite Neg (Negative) 04/05/19 16:50 Urine Bilirubin Neg (Negative) 04/05/19 16:50 Urine Urobilinogen < 2.0 mg/dL (<2.0) 04/05/19 16:50 Ur Leukocyte Esterase Tr (Negative) 04/05/19 16:50 Urine WBC (Auto) 40.0 /HPF (0.0-6.0) H 04/05/19 16:50 Urine RBC (Auto) > 182.0 /HPF (0.0-6.0) 04/05/19 16:50 U Epithel Cells (Auto) < 1.0 /HPF (0-13.0) 03/17/19 16:05 Amorphous Crystals 1+ 04/05/19 16:50 Urine Mucus Few /HPF 03/17/19 16:05 Urine Sperm 2+ /HPF (COMPUTER SYSTEMS MANAGER) 03/17/19 16:05 Urine Eosinophils None seen (None Seen) 03/17/19 16:05 Urine Creatinine 106.6 mg/dL (0.1-20.0) H 03/17/19 16:05 Urine Sodium 95 mmol/L 03/17/19 16:05 Vancomycin Trough 11.5 ug/mL (5.0-20.0) 03/18/19 13:19 Random Vancomycin 16.6 ug/mL (0-40.0) 03/30/19 04:31 Salicylates < 0.3 mg/dL (2.8-20.0) L 03/16/19 17:05 Urine Opiates Screen Presumptive negative 03/17/19 16:05 Urine Methadone Screen Presumptive negative 03/17/19 16:05 Acetaminophen < 5.0 ug/mL (10.0-30.0) L 03/16/19 17:05 Ur Barbiturates Screen Presumptive negative 03/17/19 16:05 Ur Phencyclidine Scrn Presumptive negative 03/17/19 16:05 Ur Amphetamines Screen Presumptive negative 03/17/19 16:05 U Benzodiazepines Scrn Presumptive positive 03/17/19 16:05 Urine Cocaine Screen Presumptive negative 03/17/19 16:05 U Marijuana (THC) Screen Presumptive negative 03/17/19 16:05 Drugs of Abuse Note Disclamer 03/17/19 16:05 Plasma/Serum Alcohol < 0.01 % (0-0.07) 03/16/19 17:05 Hepatitis A IgM Ab Non-reactive (NonReactive) 03/18/19 13:18 Hep Bs Antigen Non-reactive (Negative) 03/18/19 13:18 Hep B Core IgM Ab Non-reactive (NonReactive) 03/18/19 13:18 Hepatitis C Antibody Non-reactive (NonReactive) 03/18/19 13:18 HIV 1&2 Antibody Rapid Non react (Non React) 03/17/19 11:52 HIV P24 Antigen Non react (Non React) 03/17/19 11:52 Influenza A (Rapid) Negative (Negative) 03/17/19 17:00 Influenza B (Rapid) Negative (Negative) 03/17/19 17:00 Group A Strep Rapid Negative (Negative) 03/17/19 17:00 Miscellaneous Test Flexitest 1 03/21/19 12:00 Blood Type A POSITIVE 04/02/19 16:34 Antibody Screen Negative 04/02/19 16:34 Crossmatch See Detail 04/02/19 16:34 Active Medications - Current Medications Current Medications: Generic Name Dose Route Start Last Admin Trade Name Freq PRN Reason Stop Dose Admin Acetaminophen 650 mg 04/02/19 23:26 04/06/19 00:22 Tylenol PO 650 mg Q4H PRN Administration Pain, Mild (1-3),temp>100.5 Albuterol 2.5 mg 03/29/19 13:08 Proventil IH Q4HRT PRN Shortness Of Breath Amiodarone HCl 400 mg 04/11/19 10:45 04/11/19 14:19 Cordarone PO 400 mg TID PAOLO Administration Bacitracin 1 applic 04/09/19 02:43 04/11/19 00:20 Antibiotic Oint TP 1 applic PRN PRN Administration upper lip sore/open Bumetanide 2 mg 04/10/19 18:00 04/11/19 17:45 Bumex IV 2 mg BID@0600,1800 PAOLO Administration Calcium Acetate 1,334 mg 03/31/19 14:00 04/11/19 13:06 Phoslo PO 1,334 mg TID PAOLO Administration Dextrose 50 gm 03/19/19 18:39 03/26/19 23:26 D50w (25gm) Vial IV 50 gm PRN PRN Administration Hypoglycemia Epoetin Jet 20,000 unit 03/31/19 10:15 04/06/19 10:41 Procrit SUB-Q 20,000 unit NEYMAR PRN Administration hemodialysis Hydrophilic Ointment 1 applic 03/16/19 15:50 Vaseline Lip Therapy TP Q2HR PRN Dry Lips Sodium Chloride 100 mls @ 999 mls/hr 04/09/19 07:02 Nacl 0.9% IV NEYMAR PRN Hypotension Amiodarone HCl 900 mg/ 500 mls @ 16.667 mls/hr 04/11/19 01:00 Dextrose IV 04/11/19 20:00 DIRECT PAOLO 0.5 MG/MIN Sodium Chloride 100 mls @ 999 mls/hr 04/11/19 10:50 Nacl 0.9% IV NEYMAR PRN Hypotension Cefepime HCl 2 gm in 100 mls @ 200 mls/hr 04/11/19 18:00 04/11/19 17:17 Maxipime/Ns 2 Gm/100 Ml IV 200 mls/hr QPM PAOLO Administration Protocol Lansoprazole 30 mg 04/11/19 10:00 04/11/19 10:03 Prevacid Solutab FEEDTUBE 30 mg BID PAOLO Administration Metoprolol Tartrate 5 mg 04/11/19 11:00 04/11/19 16:01 Lopressor IV 5 mg Q6H PAOLO Administration Multi-Ingred Cream/Lotion/Oil/Oint 1 applic 03/16/19 15:50 03/19/19 20:10 Artificial Tears Ophth Oint OU 1 applic Q4HR PRN Administration Dry Eye(s) Ondansetron HCl 4 mg 03/16/19 22:21 04/06/19 23:50 Zofran IV 4 mg Q8H PRN Administration Nausea And Vomiting Paricalcitol 2 mcg 03/30/19 10:00 04/11/19 10:04 Zemplar IV 2 mcg DAILY PAOLO Administration Nutrition/Malnutrition Assess - Dietary Evaluation Nutrition/Malnutrition Findings: Nutrition Notes Start: 03/17/19 14:22 Freq: Status: Active Protocol: Document 04/11/19 10:54 RM (Rec: 04/11/19 11:23 RM [id number]) Nutrition Notes Initial or Follow up Reassessment Current Diagnosis Acute Kidney Injury Other Pertinent Diagnosis on HD, Septic shock,Multiple organ failure, encephalopathy, rhabdomyolysis Current Diet Nepro at 55 ml/hr Labs/Tests Na 140 BUN 45 Creat 6 K 3.5 Pertinent Medications Zofran Height 6 ft Weight 148.5 kg [place] Body Weight (kg) 80.90 BMI 44.4 Subjective/Other Information Per ST note pt failed swallow evaluation and TF restart is recommended. ST plans to reevaluate pt once medical status improves. Observed Nepro infusing at 15 ml/hr. Nurse stated that pt is tolerating TF and she plans to advance to goal rate. Noted bilat edema. Percent of energy/protein needs met: 31%/30% Burn Absent Trauma Absent Minimum of two criteria No #1 Nutrition Diagnosis Inadequate oral intake Diagnosis Progress(for reassessment Continues documentation) Is patient on ventilator? No Is Patient Ambulatory and/or Out of Bed No REE-([facility]-confined to bed) 2892.144 Kcal/Kg value to use for calculation 14 Approximate Energy Requirements Using 2079 kcal/Kg Calculation Used for Recommendations Kcal/kg Additional Notes Protein: 97-121g (1.2-1.5g/kg, IBW) Fluids:1 ml/kcal or per MD Nutrition Intervention Nutrition Support: Nepro 1.8 at 50 ml/hr Water flush 150 ml q4hr or per MD Kcal 2,160 Protein (gm) 97 Fluid (mL) 872 Goal #1 TF tolerance Goal #2 Meet at least 75% of calorie and protein needs via TF Anticipated Discharge Needs: Unable to determine at this time Follow-Up By: 04/13/19 Additional Comments Follow for TF at goal and tolerance
[2019-04-11] MEDS: ACETAMINOPHEN 325 MG TAB PO PRN (20:48)
[2019-04-11] MEDS: ONDANSETRON 4 MG/2 ML INJ IV PRN (20:49)
[2019-04-11] MEDS: FLUCONAZOLE 200 MG 200 MG/100 ML BAG IV SCH (20:51)
[2019-04-12] MEDS: BUMETANIDE 2.5 MG/10 ML VIAL IV SCH ×2 (05:27→18:03)
[2019-04-12] MEDS: METOPROLOL TARTRATE 5 MG/5 ML INJ IV SCH ×4 (05:27→23:37)
[2019-04-12] MEDS: ACETAMINOPHEN 325 MG TAB PO PRN (05:28)
--- NOTE | 2019-04-12 07:10 | Hem/Onc Progress Note ---
Assessment and Plan 1. h/o Anemia. The patient has history of bleeding. 2. rt Internal jugular partial thrombosis. The patient was started on heparin. This has been held due to bleeding 3. Gastrointestinal bleed. 4. h/o Elevated creatinine kinase. 5. h/o Low calcium. 6. h/o Thrombocytopenia. 7. h/o Renal failure. 8. h/o Intubation. 9. s/p Transfusion support. 10. Leukocytosis. At this time, supportive care may help the patient. The patient's platelet was low at admission. Urine toxicology was negative. awake extubated dvt - off anticoagulation - due to bleeding platelet - > 100 s/p iv iron trial pt on BIPAP tachycardia - on meds - Patient Problems (1) DVT (deep venous thrombosis) Current Visit: Yes Status: Acute Subjective Date of service: 04/12/19 Principal diagnosis: anemia - DVT Objective - Exam Narrative Exam: Pain - none now General appearance - awake BIPAP Performance status limited self care Eyes - no icterus ENT - extubated - BIPAP LNs cervical not palpable Neck - no LN Respiratory Normal Breath sounds - CTA anteriorly CVS S1 S2 + Extremities edema + General GI Soft Rectal deferred male - deferred Skin warm Musculoskeletal awake Neurologically awake - Constitutional Vitals: Last Vital Signs Temp 99.8 F H 04/12/19 04:44 Pulse 112 H 04/12/19 06:00 Resp 25 H 04/12/19 06:00 BP 156/112 04/12/19 06:00 Pulse Ox 99 04/12/19 06:00 - Labs Lab Results: Laboratory Results - last 24 hr 04/11/19 04/11/19 04/11/19 04:16 09:21 12:15 Add Manual Diff Complete Total Counted 100 Seg Neuts % (Manual) 71.0 H Band Neutrophils % 1.0 Lymphocytes % (Manual) 17.0 Reactive Lymphs % (Man) 0 Monocytes % (Manual) 8.0 H Eosinophils % (Manual) 2.0 Basophils % (Manual) 1.0 Metamyelocytes % 0 Myelocytes % 0 Promyelocytes % 0 Blast Cells % 0 Nucleated RBC % Not Reportable Seg Neutrophils # Man 8.2 H Band Neutrophils # 0.1 Lymphocytes # (Manual) 2.0 Abs React Lymphs (Man) 0.0 Monocytes # (Manual) 0.9 H Eosinophils # (Manual) 0.2 Basophils # (Manual) 0.1 Metamyelocytes # 0.0 Myelocytes # 0.0 Promyelocytes # 0.0 Blast Cells # 0.0 WBC Morphology Not Reportable Hypersegmented Neuts Not Reportable Hyposegmented Neuts Not Reportable Hypogranular Neuts Not Reportable Smudge Cells Not Reportable Toxic Granulation Not Reportable Toxic Vacuolation Not Reportable Dohle Bodies Not Reportable Pelger-Huet Anomaly Not Reportable Joyce Rods Not Reportable Platelet Estimate Consistent w auto Clumped Platelets Not Reportable Plt Clumps, EDTA Not Reportable Large Platelets Not Reportable Giant Platelets Not Reportable Platelet Satelliting Not Reportable Plt Morphology Comment Not Reportable RBC Morphology Not Reportable Dimorphic RBCs Not Reportable Polychromasia Not Reportable Hypochromasia Not Reportable Poikilocytosis Not Reportable Anisocytosis Rare Microcytosis Rare Macrocytosis Not Reportable Spherocytes Not Reportable Pappenheimer Bodies Not Reportable Sickle Cells Not Reportable Target Cells Not Reportable Tear Drop Cells Not Reportable Ovalocytes Not Reportable Helmet Cells Not Reportable Shrestha-Murdock Bodies Not Reportable [place] Rings Not Reportable [place] Cells Not Reportable Bite Cells Not Reportable Crenated Cell Not Reportable Elliptocytes Not Reportable Acanthocytes (Spur) Not Reportable Rouleaux Not Reportable Hemoglobin C Crystals Not Reportable Schistocytes Not Reportable Malaria parasites Not Reportable Phil Bodies Not Reportable Hem Pathologist Commnt No Sodium 140 Potassium 3.5 L Chloride 100.2 Carbon Dioxide 23 Anion Gap 20 BUN 45 H Creatinine 6.0 H Estimated GFR 10 BUN/Creatinine Ratio 8 Glucose 113 H POC Glucose 109 H Calcium 8.9 04/11/19 04/11/19 04/12/19 18:42 23:57 05:49 Add Manual Diff Total Counted Seg Neuts % (Manual) Band Neutrophils % Lymphocytes % (Manual) Reactive Lymphs % (Man) Monocytes % (Manual) Eosinophils % (Manual) Basophils % (Manual) Metamyelocytes % Myelocytes % Promyelocytes % Blast Cells % Nucleated RBC % Seg Neutrophils # Man Band Neutrophils # Lymphocytes # (Manual) Abs React Lymphs (Man) Monocytes # (Manual) Eosinophils # (Manual) Basophils # (Manual) Metamyelocytes # Myelocytes # Promyelocytes # Blast Cells # WBC Morphology Hypersegmented Neuts Hyposegmented Neuts Hypogranular Neuts Smudge Cells Toxic Granulation Toxic Vacuolation Dohle Bodies Pelger-Huet Anomaly Joyce Rods Platelet Estimate Clumped Platelets Plt Clumps, EDTA Large Platelets Giant Platelets Platelet Satelliting Plt Morphology Comment RBC Morphology Dimorphic RBCs Polychromasia Hypochromasia Poikilocytosis Anisocytosis Microcytosis Macrocytosis Spherocytes Pappenheimer Bodies Sickle Cells Target Cells Tear Drop Cells Ovalocytes Helmet Cells Shrestha-Murdock Bodies [place] Rings Samantha Cells Bite Cells Crenated Cell Elliptocytes Acanthocytes (Spur) Rouleaux Hemoglobin C Crystals Schistocytes Malaria parasites Phil Bodies Hem Pathologist Commnt Sodium Potassium Chloride Carbon Dioxide Anion Gap BUN Creatinine Estimated GFR BUN/Creatinine Ratio Glucose POC Glucose 107 H 97 104 Calcium Medications & Allergies - Medications Allergies/Adverse Reactions: Allergies No Known Allergies Allergy (Unverified 03/16/19 17:17) Home Medications: Home Medications Medication Instructions Recorded Confirmed Last Taken Type Unobtainable 03/18/19 03/18/19 Unknown History Active Medications: Generic Name Dose Route Start Last Admin Trade Name Freq PRN Reason Stop Dose Admin Acetaminophen 650 mg 04/02/19 23:26 04/12/19 05:28 Tylenol PO 650 mg Q4H PRN Administration Pain, Mild (1-3),temp>100.5 Albuterol 2.5 mg 03/29/19 13:08 Proventil IH Q4HRT PRN Shortness Of Breath Amiodarone HCl 400 mg 04/11/19 10:45 04/11/19 20:51 Cordarone PO 400 mg TID PAOLO Administration Bacitracin 1 applic 04/09/19 02:43 04/11/19 00:20 Antibiotic Oint TP 1 applic PRN PRN Administration upper lip sore/open Bumetanide 2 mg 04/10/19 18:00 04/12/19 05:27 Bumex IV 2 mg BID@0600,1800 PAOLO Administration Calcium Acetate 1,334 mg 03/31/19 14:00 04/11/19 20:51 Phoslo PO 1,334 mg TID PAOLO Administration Dextrose 50 gm 03/19/19 18:39 03/26/19 23:26 D50w (25gm) Vial IV 50 gm PRN PRN Administration Hypoglycemia Epoetin Jet 20,000 unit 03/31/19 10:15 04/06/19 10:41 Procrit SUB-Q 20,000 unit NEYMAR PRN Administration hemodialysis Hydrophilic Ointment 1 applic 03/16/19 15:50 Vaseline Lip Therapy TP Q2HR PRN Dry Lips Sodium Chloride 100 mls @ 999 mls/hr 04/09/19 07:02 Nacl 0.9% IV NEYMAR PRN Hypotension Sodium Chloride 100 mls @ 999 mls/hr 04/11/19 10:50 Nacl 0.9% IV NEYMAR PRN Hypotension Cefepime HCl 2 gm in 100 mls @ 200 mls/hr 04/11/19 18:00 04/11/19 17:17 Maxipime/Ns 2 Gm/100 Ml IV 200 mls/hr QPM PAOLO Administration Protocol Fluconazole 200 mg in 100 mls @ 100 mls/hr 04/11/19 20:00 04/11/19 20:51 Diflucan IV 04/15/19 23:59 100 mls/hr Q24HR PAOLO Administration Protocol Lansoprazole 30 mg 04/11/19 10:00 04/11/19 21:00 Prevacid Solutab FEEDTUBE 30 mg BID PAOLO Administration Metoprolol Tartrate 5 mg 04/11/19 11:00 04/12/19 05:27 Lopressor IV 5 mg Q6H PAOLO Administration Multi-Ingred Cream/Lotion/Oil/Oint 1 applic 03/16/19 15:50 03/19/19 20:10 Artificial Tears Ophth Oint OU 1 applic Q4HR PRN Administration Dry Eye(s) Ondansetron HCl 4 mg 03/16/19 22:21 04/11/19 20:49 Zofran IV 4 mg Q8H PRN Administration Nausea And Vomiting Paricalcitol 2 mcg 03/30/19 10:00 04/11/19 10:04 Zemplar IV 2 mcg DAILY PAOLO Administration
[2019-04-12] MEDS: AMIODARONE 200 MG TAB PO SCH ×3 (08:19→21:00)
[2019-04-12] MEDS: CALCIUM ACETATE 667 MG CAP PO SCH ×3 (08:19→21:00)
[2019-04-12] MEDS: FLUCONAZOLE 200 MG 200 MG/100 ML BAG IV SCH (10:10)
[2019-04-12] MEDS: LANSOPRAZOLE 30 MG SOLUTAB FEEDTUBE SCH ×2 (10:10→22:17)
[2019-04-12] MEDS: PARICALCITOL 2 MCG/1 ML INJ IV SCH (10:11)
--- NOTE | 2019-04-12 11:20 | Progress Note ---
Assessment and Plan Cont present cardiac management. He is receiving maximum dosages of amiodarone and lopressor, not an ideal candidate for digoxin given renal insufficiency and concurrent usage of amiodarone. BPs are stable. No systemic AC regarding AFib in setting of anemia, thrombocytopenia, GI bleed. Continue supportive measures. Can consider ischemic evaluation if/when medically stabilized. The patient has been seen in conjunction with Dr. Rojas who agrees with the assessment and plan of care. - Patient Problems (1) Cardiopulmonary arrest Current Visit: Yes Status: Acute (2) Acute respiratory failure Current Visit: Yes Status: Acute (3) Paroxysmal atrial fibrillation with RVR Current Visit: Yes Status: Acute (4) SVT (supraventricular tachycardia) Current Visit: Yes Status: Acute (5) Torsades de pointes Current Visit: Yes Status: Acute (6) Ventricular tachycardia Current Visit: Yes Status: Acute (7) Encephalopathy Current Visit: Yes Status: Acute (8) Septic shock Current Visit: Yes Status: Acute (9) Aspiration pneumonia Current Visit: Yes Status: Acute (10) Meningitis Current Visit: Yes Status: Suspected (11) Cellulitis Current Visit: Yes Status: Acute (12) Acute renal failure Current Visit: Yes Status: Acute (13) GI bleed Current Visit: Yes Status: Acute (14) Anemia Current Visit: Yes Status: Acute (15) Thrombocytopenia Current Visit: Yes Status: Acute (16) DVT (deep venous thrombosis) Current Visit: Yes Status: Acute Subjective Date of service: 04/12/19 Principal diagnosis: anemia - DVT Interval history: pt resting in bed, sleeping. He remains in parox AFib with RVR. Objective Last Vital Signs Temp 99.8 F H 04/12/19 04:44 Pulse 142 H 04/12/19 08:00 Resp 28 H 04/12/19 08:00 BP 161/91 04/12/19 08:00 Pulse Ox 100 04/12/19 08:03 - Physical Examination General: No Apparent Distress HEENT: Positive: EOMI, Normocephaly, Mucus Membranes Moist Neck: Positive: neck supple, trachea midline Cardiac: Positive: irregularly irregular, S1/S2, Tachycardia Lungs: Positive: Decreased Breath Sounds Neuro: Positive: Grossly Intact, Other (Awake, responsive) Abdomen: Positive: Soft, Active Bowel Sounds. Negative: Tender /Rectal: Other (deferred) Skin: Positive: Clear. Negative: Rash Musculoskeletal: Normal Range of Motion Extremities: Present: normal - Imaging and Cardiology Echo: report reviewed ( EF 40-45%, impaired relaxation. ) - EKG Sinus rhythms and dysrhythmias: sinus rhythm - Allied health notes Allied health notes reviewed: RT
--- NOTE | 2019-04-12 12:31 | Progress Note ---
Assessment and Plan Cultures: 03/16/2019 sputum: salivary contamination 03/16/2019 Blood culture: no growth 03/17/2019 Urine culture no growth 03/17/2019 throat culture: no growth 03/26/2019 Blood culture: no growth 03/27/2019 Blood culture negative. 04/04/2019 blood culture NGTD 04/05/2019 urine culture: no growth 04/11/2019 blood culture: in process Assessment: 43y/o male with possible psych history admitted on 03/16/2019 with: 1) Septic shock: Resolved. Fever after right IJ exchanged overwire on 03/27, fev er is better; leukocytosis resolved. Fever source is unclear - suspect IJ DVT ?thrombophlebitis, other ?NMS ?sinusitis, ?drug fever. Brain MRI showed no acute intracranial abnormality, mild nonspecific chronic white matter changes, fluid throughout the sinuses and mastoid air cells. Venous US + right IJ DVT. Completed empiric Cefepime x 10 days on 04/06/2019. Initial septic shock - Possible Infectious etiology v/s possibility of Neuroleptic Malignant Syndrome given psych history, high fever of 105F and extremely elevated CPK of >100K. Unclear if he was on any psych med. From ID standpoint, we will continue broad coverage for acute bacterial meningitis, tick borne illness, aspiration pneumonia. Blood culture negative UA with mild pyuria. HIV rapid negative. Strep A rapid ag negative. No obvious infectious source identified yet. 2) Low grade fever with increasing WBC: f/u blood cultures and continue empiric IV abx. 3) Probable aspiration pneumonia, fluid overload, acute resp failure: on oxygen. Previously completed abx. 4) Acute encephalopathy: improving, awake, alert, calm. CT head showed diffuse cerebral edema ?artifact. 5) Acute renal failure: renally dosing all abx, now on iHD. 6) Elevated LFTs/shock liver: also likely elevated from Rhabdomyolysis. Viral hepatitis panel negative. LFTs improved. 7) Thrombocytopenia: platelet normalized. 8) Rhabdomyolysis: CK normalized. Recommendations: f/u blood cultures monitor fever and WBC continue empiric IV Cefepime and Vancomycin, renally dosed Continue supportive care and wound care Katherine Elizabeth MD, FACP [facility] ([facility] C: [phone] O: [phone] F: [phone] Subjective Date of service: 04/12/19 Principal diagnosis: anemia - DVT Interval history: sleeping. no fever. no diarrhea, rectal tube removed. HR remains elevated, on meds. Objective - Exam Narrative Exam: Physical Exam: Constitutional: drowsy, but can be awakened Head, Ears, Nose: Normocephalic, atraumatic. External ears, nose normal Eyes: Conjunctivae/corneas clear. No icterus. No ptosis. Neck: Supple, no meningeal signs. R IJ HD cath + Cardiovascular: S1, S2 normal. Respiratory: scattered rhonchi b/l GI: Soft, non-tender; bowel sounds normal. No peritoneal signs Musculoskeletal: anasarca+ with pedal and scrotal edema + Skin: superficial excoriations, wounds with weeping Hem/Lymphatic: No palpable cervical or supraclavicular nodes. No lymphangitis Psych: awake, no agitation Neurological: drowsy, but can be awakened - Constitutional Vitals: Vital Signs Temp Pulse Resp BP Pulse Ox 99 F 128 H 34 H 142/91 97 04/12/19 12:00 04/12/19 11:45 04/12/19 11:00 04/12/19 11:45 04/12/19 11:00 Temperature -Last 24 Hours Temperature 99 F Temperature 99.8 F Temperature 98.8 F Temperature 99.0 F Temperature 99.0 F - Labs CBC & Chem 7: 04/11/19 04:16 04/11/19 09:21 Labs: Abnormal lab results 04/11/19 04/11/19 Range/Units 12:15 18:42 POC Glucose 109 H 107 H (70-105)
--- NOTE | 2019-04-12 13:26 | Progress Note ---
Assessment and Plan Severe sepsis with shock. Right axilla abscess versus localized pannus/fatty collection. Acute hypoxemic respiratory failure, on mechanical ventilator support. Likely aspiration pneumonia, bilateral. Morbid obesity. Rhabdomyolysis. Acute kidney injury. Leukocytosis. Morbid obesity. Metabolic acidosis. Lactic acidosis. Hypomagnesemia. Elevated serum transaminases/possible shock liver. Acute encephalopathy, toxic metabolic versus anoxic (Discussed Code status with him with RN in room and he very emphatically wants to be a FULL CODE) - advance tube feeds to goal rate as tolerated - ST evaluation ongoing - continue prn albuterol treatments - continue to wean FiO2 for sats > 90% - continue oral amiodarone for A-fib - continue HD/UF per nephrology prescription for toxin and volume control - prn supportive blood transfusions to keep serum Hb > 7.0 - Monitor hemodynamics closely - Transfuse PRBC's to keep HgB > 7g/dL - continue empiric broad spectrum antiinfective's per ID recommendations (de- escalate based on clinical and microbiologic data) - continue mobility protocols and off loading as tolerated for pressure ulcer prophylaxis - continue to avoid nephrotoxins, adjust all medications for GFR and CRCL - continue GI & VTE prophylaxis with - accuchecks with glycemic control per SSI for target BG of 140-180 mg/dl acutely - continue other care per attending / other consultants ... re-evaluate in am & prn CONDITION: IMPROVED PROGNOSIS: FAIR CODE STATUS: FULL CODE Subjective Date of service: 04/12/19 Principal diagnosis: Septic Shock; Ac. hypoxemic resp failure; Renzo. PNA; Rhabdomyolysis; RUBEN Interval history: Patient is seen today for: Severe sepsis with shock; Acute hypoxemic respiratory failure; Aspiration pneumonia; Morbid obesity; Rhabdomyolysis; Acute kidney injury; Morbid obesity; Elevated serum transaminases/possible shock liver; Acute encephalopathy (Toxic/Met) Seen and examined at bedside; 24hour events reviewed; nursing and respiratory care staff consulted; no adverse overnight events reported to me; resting peacefully in bed; on supplemental oxygen at 3L NC; denies acute chest pains; aches all over otherwise though; No N/V/F/C Objective Vital Signs - 12hr 04/12/19 04/12/19 04/12/19 02:00 03:00 04:00 Temperature Pulse Rate 90 130 H 140 H Pulse Rate [ 114 H From Monitor] Respiratory 14 16 13 Rate Blood Pressure 144/100 149/110 149/110 O2 Sat by Pulse 100 100 100 Oximetry 04/12/19 04/12/19 04/12/19 04:25 04:44 05:00 Temperature 99.8 F H Pulse Rate 120 H 118 H Pulse Rate [ From Monitor] Respiratory 25 H 25 H Rate Blood Pressure 156/112 156/112 O2 Sat by Pulse 100 100 Oximetry 04/12/19 04/12/19 04/12/19 05:27 06:00 07:00 Temperature Pulse Rate 125 H 112 H 103 H Pulse Rate [ From Monitor] Respiratory 25 H 26 H Rate Blood Pressure 156/112 156/112 156/89 O2 Sat by Pulse 99 99 Oximetry 04/12/19 04/12/19 04/12/19 08:00 08:03 09:00 Temperature Pulse Rate 90 94 H Pulse Rate [ 142 H From Monitor] Respiratory 22 24 Rate Blood Pressure 161/91 135/78 O2 Sat by Pulse 100 100 96 Oximetry 04/12/19 04/12/19 04/12/19 10:00 11:00 11:45 Temperature Pulse Rate 140 H 97 H 128 H Pulse Rate [ From Monitor] Respiratory 31 H 34 H Rate Blood Pressure 130/85 142/91 142/91 O2 Sat by Pulse 96 97 Oximetry 04/12/19 04/12/19 12:00 13:00 Temperature 99 F Pulse Rate 81 124 H Pulse Rate [ 119 H From Monitor] Respiratory 28 H 33 H Rate Blood Pressure 143/86 143/80 O2 Sat by Pulse 97 96 Oximetry Constitutional: no acute distress, other (middle aged morbidly obese CM, normocephalic with incresed respiratory effort on MVS) Eyes: icteric ENT: oropharynx moist, other (extubated) Neck: supple, no lymphadenopathy, no JVD, other (large neck circumference) Effort: mildly labored Ascultation: Bilateral: diminished breath sounds, rhonchi (scant) Percussion: Bilateral: not dull Cardiovascular: regular rate and rhythm, other ( S1,S2) Gastrointestinal: hypoactive bowel sounds, soft, non-tender, non-distended, other (obese) Integumentary: normal, other (blisters with some weeping over the extremities) Extremities: no cyanosis, pink and warm, pulses normal, no ischemia or petechiae Neurologic: normal mental status, non-focal exam (grossly), pupils equal and round, CN II-XII normal, other (very weak) Psychiatric: mood appropriate, affect normal CBC and BMP: 04/13/19 05:00 04/13/19 05:00 ABG, PT/INR, D-dimer: ABG POC ABG pH 7.401 (7.35-7.45) 04/07/19 12:57 ABG pH 7.388 pH Units (7.350-7.450) 04/06/19 05:20 POC ABG pCO2 41.5 (35-45) 04/07/19 12:57 ABG pCO2 38.5 mm Hg 04/06/19 05:20 POC ABG pO2 107 (80-105) H 04/07/19 12:57 ABG pO2 104.0 mm Hg (80.0-90.0) H 04/06/19 05:20 POC ABG HCO3 25.7 (22-26 mml/L) 04/07/19 12:57 POC ABG Total CO2 27 (23-27mmol/L) 04/07/19 12:57 POC ABG O2 Sat 98 04/07/19 12:57 ABG O2 Saturation 97.8 % (95.0-99.0) 04/06/19 05:20 PT/INR, D-dimer PT 15.3 Sec. (12.2-14.9) H 03/29/19 11:48 INR 1.24 (0.87-1.13) H 03/29/19 11:48 D-Dimer 4845.98 ng/mlDDU (0-234) H 03/28/19 12:00 Abnormal lab findings: Abnormal Labs 03/16/19 03/16/19 03/16/19 15:32 16:03 16:05 WBC 27.0 H RBC 5.55 H Hgb 15.7 H Hct 47.1 H MCV RDW Plt Count 75 L Lymph % (Auto) [place] % (Auto) Lymph # Seg Neutrophils % Seg Neuts % (Manual) 85.0 H Lymphocytes % (Manual) 2.0 L Monocytes % (Manual) Nucleated RBC % Seg Neutrophils # Seg Neutrophils # Man 23.0 H Lymphocytes # (Manual) 0.5 L Monocytes # (Manual) PT INR D-Dimer Heparin Anti-Xa Level POC ABG pH ABG pH POC ABG pCO2 POC ABG pO2 ABG pO2 ABG HCO3 ABG O2 Saturation ABG Base Excess ABG Hemoglobin Oxyhemoglobin Sodium 127 L Potassium Chloride 87.8 L Carbon Dioxide 17 L BUN 49 H Creatinine 5.8 H Glucose 150 H POC Glucose 118 H Lactic Acid Calcium 6.6 L Ionized Calcium Phosphorus Magnesium 1.10 L Iron TIBC Ferritin Total Bilirubin Direct Bilirubin AST ALT Alkaline Phosphatase Total Creatine Kinase 05820 H CK-MB (CK-2) Troponin T C-Reactive Protein Total Protein Albumin Triglycerides LDL Cholesterol Direct HDL Cholesterol Free T4 PTH Intact Urine WBC (Auto) Urine Creatinine Salicylates Acetaminophen Crossmatch 03/16/19 03/16/19 03/16/19 16:59 17:05 17:05 WBC RBC Hgb Hct MCV RDW Plt Count Lymph % (Auto) [place] % (Auto) Lymph # Seg Neutrophils % Seg Neuts % (Manual) Lymphocytes % (Manual) Monocytes % (Manual) Nucleated RBC % Seg Neutrophils # Seg Neutrophils # Man Lymphocytes # (Manual) Monocytes # (Manual) PT INR D-Dimer Heparin Anti-Xa Level POC ABG pH 7.297 L ABG pH POC ABG pCO2 33.0 L POC ABG pO2 ABG pO2 ABG HCO3 ABG O2 Saturation ABG Base Excess ABG Hemoglobin Oxyhemoglobin Sodium Potassium Chloride Carbon Dioxide BUN Creatinine Glucose POC Glucose Lactic Acid Calcium Ionized Calcium Phosphorus Magnesium Iron TIBC Ferritin Total Bilirubin Direct Bilirubin AST ALT Alkaline Phosphatase Total Creatine Kinase 00137 H CK-MB (CK-2) 83.1 H Troponin T C-Reactive Protein Total Protein Albumin Triglycerides LDL Cholesterol Direct HDL Cholesterol Free T4 0.72 L PTH Intact Urine WBC (Auto) Urine Creatinine Salicylates Acetaminophen Crossmatch 03/16/19 03/16/19 03/16/19 17:05 17:05 17:05 WBC RBC Hgb Hct MCV RDW Plt Count Lymph % (Auto) [place] % (Auto) Lymph # Seg Neutrophils % Seg Neuts % (Manual) Lymphocytes % (Manual) Monocytes % (Manual) Nucleated RBC % Seg Neutrophils # Seg Neutrophils # Man Lymphocytes # (Manual) Monocytes # (Manual) PT INR D-Dimer Heparin Anti-Xa Level POC ABG pH ABG pH POC ABG pCO2 POC ABG pO2 ABG pO2 ABG HCO3 ABG O2 Saturation ABG Base Excess ABG Hemoglobin Oxyhemoglobin Sodium Potassium Chloride Carbon Dioxide BUN Creatinine Glucose POC Glucose Lactic Acid 5.10 H* Calcium Ionized Calcium Phosphorus Magnesium Iron TIBC Ferritin Total Bilirubin Direct Bilirubin AST ALT Alkaline Phosphatase Total Creatine Kinase CK-MB (CK-2) Troponin T C-Reactive Protein Total Protein Albumin Triglycerides LDL Cholesterol Direct HDL Cholesterol Free T4 PTH Intact Urine WBC (Auto) Urine Creatinine Salicylates < 0.3 L Acetaminophen < 5.0 L Crossmatch 03/16/19 03/16/19 03/16/19 17:05 17:05 20:35 WBC RBC Hgb Hct MCV RDW Plt Count Lymph % (Auto) [place] % (Auto) Lymph # Seg Neutrophils % Seg Neuts % (Manual) Lymphocytes % (Manual) Monocytes % (Manual) Nucleated RBC % Seg Neutrophils # Seg Neutrophils # Man Lymphocytes # (Manual) Monocytes # (Manual) PT 15.9 H INR 1.30 H D-Dimer Heparin Anti-Xa Level POC ABG pH ABG pH POC ABG pCO2 POC ABG pO2 ABG pO2 ABG HCO3 ABG O2 Saturation ABG Base Excess ABG Hemoglobin Oxyhemoglobin Sodium Potassium Chloride Carbon Dioxide BUN Creatinine Glucose POC Glucose Lactic Acid 3.30 H* Calcium Ionized Calcium Phosphorus Magnesium Iron TIBC Ferritin Total Bilirubin 6.20 H Direct Bilirubin 5.9 H AST 800 H ALT 120 H Alkaline Phosphatase Total Creatine Kinase CK-MB (CK-2) Troponin T C-Reactive Protein Total Protein 4.4 L Albumin 2.4 L Triglycerides LDL Cholesterol Direct HDL Cholesterol Free T4 PTH Intact Urine WBC (Auto) Urine Creatinine Salicylates Acetaminophen Crossmatch 03/16/19 03/16/19 03/16/19 21:45 22:32 Unknown WBC RBC Hgb Hct MCV RDW Plt Count Lymph % (Auto) [place] % (Auto) Lymph # Seg Neutrophils % Seg Neuts % (Manual) Lymphocytes % (Manual) Monocytes % (Manual) Nucleated RBC % Seg Neutrophils # Seg Neutrophils # Man Lymphocytes # (Manual) Monocytes # (Manual) PT INR D-Dimer Heparin Anti-Xa Level POC ABG pH ABG pH POC ABG pCO2 POC ABG pO2 ABG pO2 ABG HCO3 ABG O2 Saturation ABG Base Excess ABG Hemoglobin Oxyhemoglobin Sodium Potassium Chloride Carbon Dioxide BUN Creatinine Glucose POC Glucose Lactic Acid 3.30 H* 3.00 H* Calcium Ionized Calcium Phosphorus Magnesium Iron TIBC Ferritin Total Bilirubin Direct Bilirubin AST ALT Alkaline Phosphatase Total Creatine Kinase CK-MB (CK-2) Troponin T 0.047 H D C-Reactive Protein Total Protein Albumin Triglycerides 395 H LDL Cholesterol Direct 10 L HDL Cholesterol 7 L Free T4 PTH Intact Urine WBC (Auto) Urine Creatinine Salicylates Acetaminophen Crossmatch 03/17/19 03/17/19 03/17/19 03:45 03:45 03:45 WBC RBC Hgb Hct MCV RDW Plt Count Lymph % (Auto) [place] % (Auto) Lymph # Seg Neutrophils % Seg Neuts % (Manual) Lymphocytes % (Manual) Monocytes % (Manual) Nucleated RBC % Seg Neutrophils # Seg Neutrophils # Man Lymphocytes # (Manual) Monocytes # (Manual) PT INR D-Dimer Heparin Anti-Xa Level POC ABG pH ABG pH POC ABG pCO2 POC ABG pO2 ABG pO2 ABG HCO3 ABG O2 Saturation ABG Base Excess ABG Hemoglobin Oxyhemoglobin Sodium 131 L Potassium Chloride 88.9 L Carbon Dioxide BUN 53 H Creatinine 7.1 H Glucose POC Glucose Lactic Acid 4.10 H* Calcium 5.4 L* D Ionized Calcium Phosphorus 7.30 H Magnesium 1.60 L Iron TIBC Ferritin Total Bilirubin 5.90 H Direct Bilirubin AST 801 H ALT 109 H Alkaline Phosphatase Total Creatine Kinase 48045 H 64560 H CK-MB (CK-2) 41.5 H Troponin T 0.054 H C-Reactive Protein Total Protein 4.5 L Albumin 2.0 L Triglycerides LDL Cholesterol Direct HDL Cholesterol Free T4 PTH Intact Urine WBC (Auto) Urine Creatinine Salicylates Acetaminophen Crossmatch 03/17/19 03/17/19 03/17/19 05:47 07:16 07:16 WBC RBC Hgb Hct MCV RDW Plt Count Lymph % (Auto) [place] % (Auto) Lymph # Seg Neutrophils % Seg Neuts % (Manual) Lymphocytes % (Manual) Monocytes % (Manual) Nucleated RBC % Seg Neutrophils # Seg Neutrophils # Man Lymphocytes # (Manual) Monocytes # (Manual) PT INR D-Dimer Heparin Anti-Xa Level POC ABG pH 7.193 L ABG pH POC ABG pCO2 45.2 H POC ABG pO2 65 L ABG pO2 ABG HCO3 ABG O2 Saturation ABG Base Excess ABG Hemoglobin Oxyhemoglobin Sodium Potassium Chloride Carbon Dioxide BUN Creatinine Glucose POC Glucose Lactic Acid 5.50 H* Calcium Ionized Calcium Phosphorus Magnesium Iron TIBC Ferritin Total Bilirubin Direct Bilirubin AST ALT Alkaline Phosphatase Total Creatine Kinase 89005 H CK-MB (CK-2) 54.3 H Troponin T 0.058 H C-Reactive Protein Total Protein Albumin Triglycerides LDL Cholesterol Direct HDL Cholesterol Free T4 PTH Intact Urine WBC (Auto) Urine Creatinine Salicylates Acetaminophen Crossmatch 03/17/19 03/17/19 03/17/19 11:52 12:51 13:01 WBC RBC Hgb Hct MCV RDW Plt Count Lymph % (Auto) [place] % (Auto) Lymph # Seg Neutrophils % Seg Neuts % (Manual) Lymphocytes % (Manual) Monocytes % (Manual) Nucleated RBC % Seg Neutrophils # Seg Neutrophils # Man Lymphocytes # (Manual) Monocytes # (Manual) PT INR D-Dimer Heparin Anti-Xa Level POC ABG pH 7.154 L ABG pH POC ABG pCO2 34.3 L POC ABG pO2 73 L ABG pO2 ABG HCO3 ABG O2 Saturation ABG Base Excess ABG Hemoglobin Oxyhemoglobin Sodium Potassium Chloride Carbon Dioxide BUN Creatinine Glucose POC Glucose 60 L Lactic Acid 8.20 H* Calcium Ionized Calcium Phosphorus Magnesium Iron TIBC Ferritin Total Bilirubin Direct Bilirubin AST ALT Alkaline Phosphatase Total Creatine Kinase CK-MB (CK-2) Troponin T C-Reactive Protein Total Protein Albumin Triglycerides LDL Cholesterol Direct HDL Cholesterol Free T4 PTH Intact Urine WBC (Auto) Urine Creatinine Salicylates Acetaminophen Crossmatch 03/17/19 03/17/19 03/17/19 14:37 14:37 14:37 WBC 29.3 H RBC Hgb Hct MCV RDW 15.8 H Plt Count 45 L Lymph % (Auto) [place] % (Auto) Lymph # Seg Neutrophils % Seg Neuts % (Manual) 81.0 H Lymphocytes % (Manual) 1.0 L Monocytes % (Manual) 15.0 H Nucleated RBC % Seg Neutrophils # Seg Neutrophils # Man 23.7 H Lymphocytes # (Manual) 0.3 L Monocytes # (Manual) 4.4 H PT INR D-Dimer Heparin Anti-Xa Level POC ABG pH ABG pH POC ABG pCO2 POC ABG pO2 ABG pO2 ABG HCO3 ABG O2 Saturation ABG Base Excess ABG Hemoglobin Oxyhemoglobin Sodium Potassium Chloride Carbon Dioxide BUN Creatinine Glucose POC Glucose Lactic Acid 4.90 H* Calcium Ionized Calcium Phosphorus Magnesium Iron TIBC Ferritin Total Bilirubin Direct Bilirubin AST ALT Alkaline Phosphatase Total Creatine Kinase CK-MB (CK-2) Troponin T C-Reactive Protein 24.90 H Total Protein Albumin Triglycerides LDL Cholesterol Direct HDL Cholesterol Free T4 PTH Intact Urine WBC (Auto) Urine Creatinine Salicylates Acetaminophen Crossmatch 03/17/19 03/17/19 03/17/19 16:05 16:05 17:02 WBC RBC Hgb Hct MCV RDW Plt Count Lymph % (Auto) [place] % (Auto) Lymph # Seg Neutrophils % Seg Neuts % (Manual) Lymphocytes % (Manual) Monocytes % (Manual) Nucleated RBC % Seg Neutrophils # Seg Neutrophils # Man Lymphocytes # (Manual) Monocytes # (Manual) PT INR D-Dimer Heparin Anti-Xa Level POC ABG pH 7.183 L ABG pH POC ABG pCO2 POC ABG pO2 65 L ABG pO2 ABG HCO3 ABG O2 Saturation ABG Base Excess ABG Hemoglobin Oxyhemoglobin Sodium Potassium Chloride Carbon Dioxide BUN Creatinine Glucose POC Glucose Lactic Acid Calcium Ionized Calcium Phosphorus Magnesium Iron TIBC Ferritin Total Bilirubin Direct Bilirubin AST ALT Alkaline Phosphatase Total Creatine Kinase CK-MB (CK-2) Troponin T C-Reactive Protein Total Protein Albumin Triglycerides LDL Cholesterol Direct HDL Cholesterol Free T4 PTH Intact Urine WBC (Auto) 30.0 H Urine Creatinine 106.6 H Salicylates Acetaminophen Crossmatch 03/18/19 03/18/19 03/18/19 05:12 05:16 05:53 WBC RBC Hgb Hct MCV RDW Plt Count Lymph % (Auto) [place] % (Auto) Lymph # Seg Neutrophils % Seg Neuts % (Manual) Lymphocytes % (Manual) Monocytes % (Manual) Nucleated RBC % Seg Neutrophils # Seg Neutrophils # Man Lymphocytes # (Manual) Monocytes # (Manual) PT INR D-Dimer Heparin Anti-Xa Level POC ABG pH 7.257 L ABG pH POC ABG pCO2 31.6 L POC ABG pO2 69 L ABG pO2 ABG HCO3 ABG O2 Saturation ABG Base Excess ABG Hemoglobin Oxyhemoglobin Sodium Potassium Chloride Carbon Dioxide BUN Creatinine Glucose POC Glucose 141 H Lactic Acid 5.00 H* Calcium Ionized Calcium Phosphorus Magnesium Iron TIBC Ferritin Total Bilirubin Direct Bilirubin AST ALT Alkaline Phosphatase Total Creatine Kinase CK-MB (CK-2) Troponin T C-Reactive Protein Total Protein Albumin Triglycerides LDL Cholesterol Direct HDL Cholesterol Free T4 PTH Intact Urine WBC (Auto) Urine Creatinine Salicylates Acetaminophen Crossmatch 03/18/19 03/18/19 03/18/19 06:57 08:40 08:40 WBC 31.7 H RBC Hgb Hct MCV RDW 15.5 H Plt Count 35 L Lymph % (Auto) [place] % (Auto) Lymph # Seg Neutrophils % Seg Neuts % (Manual) Lymphocytes % (Manual) Monocytes % (Manual) Nucleated RBC % Seg Neutrophils # Seg Neutrophils # Man Lymphocytes # (Manual) Monocytes # (Manual) PT INR D-Dimer Heparin Anti-Xa Level POC ABG pH ABG pH POC ABG pCO2 POC ABG pO2 ABG pO2 ABG HCO3 ABG O2 Saturation ABG Base Excess ABG Hemoglobin Oxyhemoglobin Sodium 132 L Potassium 5.5 H D Chloride 88.5 L Carbon Dioxide 18 L BUN 71 H Creatinine 8.1 H Glucose 205 H POC Glucose Lactic Acid 5.00 H* Calcium 4.1 L* D Ionized Calcium Phosphorus Magnesium 2.40 H Iron TIBC Ferritin Total Bilirubin 7.50 H Direct Bilirubin AST 1088 H ALT 159 H Alkaline Phosphatase 190 H Total Creatine Kinase 789936 H CK-MB (CK-2) Troponin T C-Reactive Protein Total Protein 4.7 L Albumin 1.8 L Triglycerides LDL Cholesterol Direct HDL Cholesterol Free T4 PTH Intact Urine WBC (Auto) Urine Creatinine Salicylates Acetaminophen Crossmatch 03/18/19 03/18/19 03/18/19 12:33 12:50 13:19 WBC RBC Hgb Hct MCV RDW Plt Count Lymph % (Auto) [place] % (Auto) Lymph # Seg Neutrophils % Seg Neuts % (Manual) Lymphocytes % (Manual) Monocytes % (Manual) Nucleated RBC % Seg Neutrophils # Seg Neutrophils # Man Lymphocytes # (Manual) Monocytes # (Manual) PT INR D-Dimer Heparin Anti-Xa Level POC ABG pH 7.282 L ABG pH POC ABG pCO2 POC ABG pO2 67 L ABG pO2 ABG HCO3 ABG O2 Saturation ABG Base Excess ABG Hemoglobin Oxyhemoglobin Sodium Potassium Chloride Carbon Dioxide BUN Creatinine Glucose POC Glucose 129 H Lactic Acid 3.30 H* Calcium Ionized Calcium Phosphorus Magnesium Iron TIBC Ferritin Total Bilirubin Direct Bilirubin AST ALT Alkaline Phosphatase Total Creatine Kinase CK-MB (CK-2) Troponin T C-Reactive Protein Total Protein Albumin Triglycerides LDL Cholesterol Direct HDL Cholesterol Free T4 PTH Intact Urine WBC (Auto) Urine Creatinine Salicylates Acetaminophen Crossmatch 03/18/19 03/18/19 03/18/19 13:19 16:50 18:11 WBC RBC Hgb Hct MCV RDW Plt Count Lymph % (Auto) [place] % (Auto) Lymph # Seg Neutrophils % Seg Neuts % (Manual) Lymphocytes % (Manual) Monocytes % (Manual) Nucleated RBC % Seg Neutrophils # Seg Neutrophils # Man Lymphocytes # (Manual) Monocytes # (Manual) PT INR D-Dimer Heparin Anti-Xa Level POC ABG pH ABG pH POC ABG pCO2 POC ABG pO2 59 L ABG pO2 ABG HCO3 ABG O2 Saturation ABG Base Excess ABG Hemoglobin Oxyhemoglobin Sodium Potassium Chloride Carbon Dioxide BUN Creatinine Glucose POC Glucose 151 H Lactic Acid Calcium 4.2 L* Ionized Calcium Phosphorus Magnesium Iron TIBC Ferritin Total Bilirubin Direct Bilirubin AST ALT Alkaline Phosphatase Total Creatine Kinase 948156 H CK-MB (CK-2) Troponin T C-Reactive Protein Total Protein Albumin Triglycerides LDL Cholesterol Direct HDL Cholesterol Free T4 PTH Intact Urine WBC (Auto) Urine Creatinine Salicylates Acetaminophen Crossmatch 03/18/19 03/18/19 03/19/19 18:20 23:39 01:42 WBC RBC Hgb Hct MCV RDW Plt Count Lymph % (Auto) [place] % (Auto) Lymph # Seg Neutrophils % Seg Neuts % (Manual) Lymphocytes % (Manual) Monocytes % (Manual) Nucleated RBC % Seg Neutrophils # Seg Neutrophils # Man Lymphocytes # (Manual) Monocytes # (Manual) PT INR D-Dimer Heparin Anti-Xa Level POC ABG pH 7.345 L ABG pH 7.285 L POC ABG pCO2 POC ABG pO2 59 L ABG pO2 44.0 L ABG HCO3 ABG O2 Saturation 70.9 L ABG Base Excess -5.7 L ABG Hemoglobin 11.9 L Oxyhemoglobin 69.6 L Sodium Potassium Chloride Carbon Dioxide BUN Creatinine Glucose POC Glucose 152 H Lactic Acid Calcium Ionized Calcium Phosphorus Magnesium Iron TIBC Ferritin Total Bilirubin Direct Bilirubin AST ALT Alkaline Phosphatase Total Creatine Kinase CK-MB (CK-2) Troponin T C-Reactive Protein Total Protein Albumin Triglycerides LDL Cholesterol Direct HDL Cholesterol Free T4 PTH Intact Urine WBC (Auto) Urine Creatinine Salicylates Acetaminophen Crossmatch 03/19/19 03/19/19 03/19/19 04:00 04:00 05:35 WBC 36.5 H RBC Hgb Hct MCV RDW 15.8 H Plt Count 35 L Lymph % (Auto) [place] % (Auto) Lymph # Seg Neutrophils % Seg Neuts % (Manual) Lymphocytes % (Manual) Monocytes % (Manual) Nucleated RBC % Seg Neutrophils # Seg Neutrophils # Man Lymphocytes # (Manual) Monocytes # (Manual) PT INR D-Dimer Heparin Anti-Xa Level POC ABG pH ABG pH 7.265 L POC ABG pCO2 POC ABG pO2 ABG pO2 35.4 L* ABG HCO3 ABG O2 Saturation 54.4 L ABG Base Excess -6.7 L ABG Hemoglobin 12.9 L Oxyhemoglobin 53.4 L Sodium 132 L Potassium 5.7 H Chloride 89.8 L Carbon Dioxide 19 L BUN 62 H Creatinine 6.4 H Glucose 151 H POC Glucose Lactic Acid Calcium 5.2 L* D Ionized Calcium Phosphorus Magnesium Iron TIBC Ferritin Total Bilirubin 7.80 H Direct Bilirubin AST 682 H ALT 130 H Alkaline Phosphatase 167 H Total Creatine Kinase CK-MB (CK-2) Troponin T C-Reactive Protein Total Protein 4.8 L Albumin 2.3 L Triglycerides LDL Cholesterol Direct HDL Cholesterol Free T4 PTH Intact Urine WBC (Auto) Urine Creatinine Salicylates Acetaminophen Crossmatch 03/19/19 03/19/19 03/19/19 05:49 09:16 09:50 WBC RBC Hgb Hct MCV RDW Plt Count Lymph % (Auto) [place] % (Auto) Lymph # Seg Neutrophils % Seg Neuts % (Manual) Lymphocytes % (Manual) Monocytes % (Manual) Nucleated RBC % Seg Neutrophils # Seg Neutrophils # Man Lymphocytes # (Manual) Monocytes # (Manual) PT INR D-Dimer Heparin Anti-Xa Level POC ABG pH 7.222 L ABG pH POC ABG pCO2 56.6 H POC ABG pO2 ABG pO2 ABG HCO3 ABG O2 Saturation ABG Base Excess ABG Hemoglobin Oxyhemoglobin Sodium Potassium Chloride Carbon Dioxide BUN Creatinine Glucose POC Glucose 154 H Lactic Acid 2.70 H* Calcium Ionized Calcium Phosphorus Magnesium Iron TIBC Ferritin Total Bilirubin Direct Bilirubin AST ALT Alkaline Phosphatase Total Creatine Kinase CK-MB (CK-2) Troponin T C-Reactive Protein Total Protein Albumin Triglycerides LDL Cholesterol Direct HDL Cholesterol Free T4 PTH Intact Urine WBC (Auto) Urine Creatinine Salicylates Acetaminophen Crossmatch 03/19/19 03/19/19 03/19/19 09:50 11:28 17:58 WBC RBC Hgb Hct MCV RDW Plt Count Lymph % (Auto) [place] % (Auto) Lymph # Seg Neutrophils % Seg Neuts % (Manual) Lymphocytes % (Manual) Monocytes % (Manual) Nucleated RBC % Seg Neutrophils # Seg Neutrophils # Man Lymphocytes # (Manual) Monocytes # (Manual) PT INR D-Dimer Heparin Anti-Xa Level POC ABG pH 7.250 L ABG pH POC ABG pCO2 52.6 H POC ABG pO2 ABG pO2 ABG HCO3 ABG O2 Saturation ABG Base Excess ABG Hemoglobin Oxyhemoglobin Sodium Potassium Chloride Carbon Dioxide BUN Creatinine Glucose POC Glucose 160 H Lactic Acid Calcium Ionized Calcium Phosphorus Magnesium Iron TIBC Ferritin Total Bilirubin Direct Bilirubin AST ALT Alkaline Phosphatase Total Creatine Kinase 00230 H CK-MB (CK-2) Troponin T C-Reactive Protein Total Protein Albumin Triglycerides LDL Cholesterol Direct HDL Cholesterol Free T4 PTH Intact Urine WBC (Auto) Urine Creatinine Salicylates Acetaminophen Crossmatch 03/19/19 03/19/19 03/20/19 19:48 21:03 02:16 WBC RBC Hgb Hct MCV RDW Plt Count Lymph % (Auto) [place] % (Auto) Lymph # Seg Neutrophils % Seg Neuts % (Manual) Lymphocytes % (Manual) Monocytes % (Manual) Nucleated RBC % Seg Neutrophils # Seg Neutrophils # Man Lymphocytes # (Manual) Monocytes # (Manual) PT INR D-Dimer Heparin Anti-Xa Level POC ABG pH 7.279 L ABG pH POC ABG pCO2 50.3 H POC ABG pO2 129 H ABG pO2 ABG HCO3 ABG O2 Saturation ABG Base Excess ABG Hemoglobin Oxyhemoglobin Sodium Potassium Chloride Carbon Dioxide BUN Creatinine Glucose POC Glucose 119 H 119 H Lactic Acid Calcium Ionized Calcium Phosphorus Magnesium Iron TIBC Ferritin Total Bilirubin Direct Bilirubin AST ALT Alkaline Phosphatase Total Creatine Kinase CK-MB (CK-2) Troponin T C-Reactive Protein Total Protein Albumin Triglycerides LDL Cholesterol Direct HDL Cholesterol Free T4 PTH Intact Urine WBC (Auto) Urine Creatinine Salicylates Acetaminophen Crossmatch 03/20/19 03/20/19 03/20/19 04:23 05:05 09:30 WBC 36.3 H RBC Hgb Hct MCV RDW 15.5 H Plt Count 29 L Lymph % (Auto) [place] % (Auto) Lymph # Seg Neutrophils % Seg Neuts % (Manual) Lymphocytes % (Manual) Monocytes % (Manual) Nucleated RBC % Seg Neutrophils # Seg Neutrophils # Man Lymphocytes # (Manual) Monocytes # (Manual) PT INR D-Dimer Heparin Anti-Xa Level POC ABG pH ABG pH POC ABG pCO2 POC ABG pO2 280 H ABG pO2 ABG HCO3 ABG O2 Saturation ABG Base Excess ABG Hemoglobin Oxyhemoglobin Sodium Potassium Chloride Carbon Dioxide BUN Creatinine Glucose POC Glucose 115 H Lactic Acid Calcium Ionized Calcium Phosphorus Magnesium Iron TIBC Ferritin Total Bilirubin Direct Bilirubin AST ALT Alkaline Phosphatase Total Creatine Kinase CK-MB (CK-2) Troponin T C-Reactive Protein Total Protein Albumin Triglycerides LDL Cholesterol Direct HDL Cholesterol Free T4 PTH Intact Urine WBC (Auto) Urine Creatinine Salicylates Acetaminophen Crossmatch 03/20/19 03/20/19 03/20/19 09:30 09:30 11:34 WBC RBC Hgb Hct MCV RDW Plt Count Lymph % (Auto) [place] % (Auto) Lymph # Seg Neutrophils % Seg Neuts % (Manual) Lymphocytes % (Manual) Monocytes % (Manual) Nucleated RBC % Seg Neutrophils # Seg Neutrophils # Man Lymphocytes # (Manual) Monocytes # (Manual) PT INR D-Dimer Heparin Anti-Xa Level POC ABG pH ABG pH POC ABG pCO2 POC ABG pO2 ABG pO2 ABG HCO3 ABG O2 Saturation ABG Base Excess ABG Hemoglobin Oxyhemoglobin Sodium 131 L Potassium Chloride 92.3 L Carbon Dioxide 20 L BUN 68 H Creatinine 6.1 H Glucose 164 H POC Glucose 141 H Lactic Acid Calcium 5.3 L* Ionized Calcium Phosphorus Magnesium Iron TIBC Ferritin Total Bilirubin 9.50 H Direct Bilirubin AST 381 H ALT 116 H Alkaline Phosphatase 255 H Total Creatine Kinase 77126 H CK-MB (CK-2) Troponin T C-Reactive Protein Total Protein 5.1 L Albumin 2.3 L Triglycerides LDL Cholesterol Direct HDL Cholesterol Free T4 PTH Intact Urine WBC (Auto) Urine Creatinine Salicylates Acetaminophen Crossmatch 03/20/19 03/20/19 03/20/19 14:41 14:45 18:50 WBC RBC Hgb Hct MCV RDW Plt Count Lymph % (Auto) [place] % (Auto) Lymph # Seg Neutrophils % Seg Neuts % (Manual) Lymphocytes % (Manual) Monocytes % (Manual) Nucleated RBC % Seg Neutrophils # Seg Neutrophils # Man Lymphocytes # (Manual) Monocytes # (Manual) PT INR D-Dimer Heparin Anti-Xa Level POC ABG pH ABG pH POC ABG pCO2 POC ABG pO2 ABG pO2 ABG HCO3 ABG O2 Saturation ABG Base Excess ABG Hemoglobin Oxyhemoglobin Sodium Potassium Chloride Carbon Dioxide BUN Creatinine Glucose POC Glucose 117 H Lactic Acid 2.90 H* Calcium Ionized Calcium Phosphorus Magnesium Iron TIBC Ferritin Total Bilirubin Direct Bilirubin AST ALT Alkaline Phosphatase Total Creatine Kinase CK-MB (CK-2) Troponin T C-Reactive Protein 13.30 H Total Protein Albumin Triglycerides LDL Cholesterol Direct HDL Cholesterol Free T4 PTH Intact Urine WBC (Auto) Urine Creatinine Salicylates Acetaminophen Crossmatch 03/20/19 03/21/19 03/21/19 21:55 04:26 04:26 WBC 37.8 H RBC Hgb Hct MCV RDW 15.4 H Plt Count 36 L Lymph % (Auto) [place] % (Auto) Lymph # Seg Neutrophils % Seg Neuts % (Manual) 93.0 H Lymphocytes % (Manual) 3.0 L Monocytes % (Manual) Nucleated RBC % 1.0 H Seg Neutrophils # 34.6 H Seg Neutrophils # Man 35.2 H Lymphocytes # (Manual) 1.1 L Monocytes # (Manual) PT INR D-Dimer Heparin Anti-Xa Level POC ABG pH ABG pH POC ABG pCO2 POC ABG pO2 ABG pO2 ABG HCO3 ABG O2 Saturation ABG Base Excess ABG Hemoglobin Oxyhemoglobin Sodium 131 L Potassium Chloride 90.7 L Carbon Dioxide 21 L BUN 69 H Creatinine 5.7 H Glucose 170 H POC Glucose 128 H Lactic Acid Calcium 6.1 L D Ionized Calcium Phosphorus Magnesium Iron TIBC Ferritin Total Bilirubin 9.50 H Direct Bilirubin AST 308 H ALT 124 H Alkaline Phosphatase 327 H Total Creatine Kinase 39433 H CK-MB (CK-2) Troponin T C-Reactive Protein Total Protein 5.7 L Albumin 2.6 L Triglycerides LDL Cholesterol Direct HDL Cholesterol Free T4 PTH Intact Urine WBC (Auto) Urine Creatinine Salicylates Acetaminophen Crossmatch 03/21/19 03/21/19 03/21/19 05:17 05:39 08:29 WBC RBC Hgb Hct MCV RDW Plt Count Lymph % (Auto) [place] % (Auto) Lymph # Seg Neutrophils % Seg Neuts % (Manual) Lymphocytes % (Manual) Monocytes % (Manual) Nucleated RBC % Seg Neutrophils # Seg Neutrophils # Man Lymphocytes # (Manual) Monocytes # (Manual) PT INR D-Dimer Heparin Anti-Xa Level POC ABG pH ABG pH POC ABG pCO2 POC ABG pO2 209 H ABG pO2 ABG HCO3 ABG O2 Saturation ABG Base Excess ABG Hemoglobin Oxyhemoglobin Sodium Potassium Chloride Carbon Dioxide BUN Creatinine Glucose POC Glucose 145 H Lactic Acid Calcium Ionized Calcium Phosphorus Magnesium Iron TIBC Ferritin Total Bilirubin Direct Bilirubin AST ALT Alkaline Phosphatase Total Creatine Kinase 88928 H CK-MB (CK-2) Troponin T C-Reactive Protein Total Protein Albumin Triglycerides LDL Cholesterol Direct HDL Cholesterol Free T4 PTH Intact Urine WBC (Auto) Urine Creatinine Salicylates Acetaminophen Crossmatch 03/21/19 03/21/19 03/21/19 08:29 11:43 12:00 WBC RBC Hgb Hct MCV RDW Plt Count Lymph % (Auto) [place] % (Auto) Lymph # Seg Neutrophils % Seg Neuts % (Manual) Lymphocytes % (Manual) Monocytes % (Manual) Nucleated RBC % Seg Neutrophils # Seg Neutrophils # Man Lymphocytes # (Manual) Monocytes # (Manual) PT INR D-Dimer Heparin Anti-Xa Level POC ABG pH ABG pH POC ABG pCO2 POC ABG pO2 ABG pO2 ABG HCO3 ABG O2 Saturation ABG Base Excess ABG Hemoglobin Oxyhemoglobin Sodium Potassium Chloride Carbon Dioxide BUN Creatinine Glucose POC Glucose 123 H Lactic Acid 2.60 H* 2.20 H* Calcium Ionized Calcium Phosphorus Magnesium Iron TIBC Ferritin Total Bilirubin Direct Bilirubin AST ALT Alkaline Phosphatase Total Creatine Kinase CK-MB (CK-2) Troponin T C-Reactive Protein Total Protein Albumin Triglycerides LDL Cholesterol Direct HDL Cholesterol Free T4 PTH Intact Urine WBC (Auto) Urine Creatinine Salicylates Acetaminophen Crossmatch 03/21/19 03/21/19 03/21/19 14:11 18:28 19:32 WBC RBC Hgb Hct MCV RDW Plt Count Lymph % (Auto) [place] % (Auto) Lymph # Seg Neutrophils % Seg Neuts % (Manual) Lymphocytes % (Manual) Monocytes % (Manual) Nucleated RBC % Seg Neutrophils # Seg Neutrophils # Man Lymphocytes # (Manual) Monocytes # (Manual) PT INR D-Dimer Heparin Anti-Xa Level POC ABG pH 7.293 L ABG pH POC ABG pCO2 POC ABG pO2 ABG pO2 ABG HCO3 ABG O2 Saturation ABG Base Excess ABG Hemoglobin Oxyhemoglobin Sodium Potassium Chloride Carbon Dioxide BUN Creatinine Glucose POC Glucose 153 H Lactic Acid 2.10 H* Calcium Ionized Calcium Phosphorus Magnesium Iron TIBC Ferritin Total Bilirubin Direct Bilirubin AST ALT Alkaline Phosphatase Total Creatine Kinase CK-MB (CK-2) Troponin T C-Reactive Protein Total Protein Albumin Triglycerides LDL Cholesterol Direct HDL Cholesterol Free T4 PTH Intact Urine WBC (Auto) Urine Creatinine Salicylates Acetaminophen Crossmatch 03/21/19 03/22/19 03/22/19 23:38 05:08 05:51 WBC RBC Hgb Hct MCV RDW Plt Count Lymph % (Auto) [place] % (Auto) Lymph # Seg Neutrophils % Seg Neuts % (Manual) Lymphocytes % (Manual) Monocytes % (Manual) Nucleated RBC % Seg Neutrophils # Seg Neutrophils # Man Lymphocytes # (Manual) Monocytes # (Manual) PT INR D-Dimer Heparin Anti-Xa Level POC ABG pH 7.283 L ABG pH POC ABG pCO2 POC ABG pO2 53 L ABG pO2 ABG HCO3 ABG O2 Saturation ABG Base Excess ABG Hemoglobin Oxyhemoglobin Sodium Potassium Chloride Carbon Dioxide BUN Creatinine Glucose POC Glucose 149 H 131 H Lactic Acid Calcium Ionized Calcium Phosphorus Magnesium Iron TIBC Ferritin Total Bilirubin Direct Bilirubin AST ALT Alkaline Phosphatase Total Creatine Kinase CK-MB (CK-2) Troponin T C-Reactive Protein Total Protein Albumin Triglycerides LDL Cholesterol Direct HDL Cholesterol Free T4 PTH Intact Urine WBC (Auto) Urine Creatinine Salicylates Acetaminophen Crossmatch 03/22/19 03/22/19 03/22/19 08:00 08:00 18:19 WBC 36.7 H RBC Hgb 11.0 L Hct 33.5 L MCV RDW 15.5 H Plt Count 43 L Lymph % (Auto) [place] % (Auto) Lymph # Seg Neutrophils % Seg Neuts % (Manual) 87.0 H Lymphocytes % (Manual) 7.0 L Monocytes % (Manual) Nucleated RBC % Seg Neutrophils # Seg Neutrophils # Man 31.9 H Lymphocytes # (Manual) Monocytes # (Manual) PT INR D-Dimer Heparin Anti-Xa Level POC ABG pH ABG pH POC ABG pCO2 46.4 H POC ABG pO2 108 H ABG pO2 ABG HCO3 ABG O2 Saturation ABG Base Excess ABG Hemoglobin Oxyhemoglobin Sodium 132 L Potassium 5.6 H Chloride 89.6 L Carbon Dioxide 20 L BUN 101 H Creatinine 7.4 H Glucose 124 H POC Glucose Lactic Acid Calcium 5.2 L* Ionized Calcium Phosphorus Magnesium Iron TIBC Ferritin Total Bilirubin 2.80 H Direct Bilirubin AST 119 H ALT 86 H Alkaline Phosphatase 245 H Total Creatine Kinase CK-MB (CK-2) Troponin T C-Reactive Protein Total Protein 5.6 L Albumin 2.5 L Triglycerides LDL Cholesterol Direct HDL Cholesterol Free T4 PTH Intact Urine WBC (Auto) Urine Creatinine Salicylates Acetaminophen Crossmatch 03/22/19 03/23/19 03/23/19 20:37 04:49 05:28 WBC 35.9 H RBC Hgb 10.8 L Hct 33.2 L MCV RDW 15.5 H Plt Count 49 L Lymph % (Auto) [place] % (Auto) Lymph # Seg Neutrophils % Seg Neuts % (Manual) 81.0 H Lymphocytes % (Manual) 3.5 L Monocytes % (Manual) Nucleated RBC % Seg Neutrophils # Seg Neutrophils # Man 29.1 H Lymphocytes # (Manual) Monocytes # (Manual) 1.4 H PT INR D-Dimer Heparin Anti-Xa Level POC ABG pH 7.296 L ABG pH POC ABG pCO2 46.2 H POC ABG pO2 ABG pO2 ABG HCO3 ABG O2 Saturation ABG Base Excess ABG Hemoglobin Oxyhemoglobin Sodium 129 L Potassium 5.2 H Chloride 91.1 L Carbon Dioxide BUN 91 H Creatinine 6.6 H Glucose 190 H POC Glucose Lactic Acid Calcium 5.3 L* Ionized Calcium Phosphorus Magnesium Iron TIBC Ferritin Total Bilirubin 1.80 H Direct Bilirubin AST 80 H ALT 62 H Alkaline Phosphatase 209 H Total Creatine Kinase 9758 H CK-MB (CK-2) Troponin T C-Reactive Protein Total Protein 5.2 L Albumin 2.2 L Triglycerides LDL Cholesterol Direct HDL Cholesterol Free T4 PTH Intact Urine WBC (Auto) Urine Creatinine Salicylates Acetaminophen Crossmatch 03/23/19 03/23/19 03/23/19 05:28 05:31 11:33 WBC 29.7 H RBC 3.59 L Hgb 10.1 L Hct 31.1 L MCV RDW 15.4 H Plt Count 47 L Lymph % (Auto) [place] % (Auto) Lymph # Seg Neutrophils % Seg Neuts % (Manual) 89.0 H Lymphocytes % (Manual) 6.0 L Monocytes % (Manual) Nucleated RBC % 1.0 H Seg Neutrophils # Seg Neutrophils # Man 26.4 H Lymphocytes # (Manual) Monocytes # (Manual) PT INR D-Dimer Heparin Anti-Xa Level POC ABG pH ABG pH POC ABG pCO2 POC ABG pO2 ABG pO2 ABG HCO3 ABG O2 Saturation ABG Base Excess ABG Hemoglobin Oxyhemoglobin Sodium Potassium Chloride Carbon Dioxide BUN Creatinine Glucose POC Glucose 122 H 113 H Lactic Acid Calcium Ionized Calcium Phosphorus Magnesium Iron TIBC Ferritin Total Bilirubin Direct Bilirubin AST ALT Alkaline Phosphatase Total Creatine Kinase CK-MB (CK-2) Troponin T C-Reactive Protein Total Protein Albumin Triglycerides LDL Cholesterol Direct HDL Cholesterol Free T4 PTH Intact Urine WBC (Auto) Urine Creatinine Salicylates Acetaminophen Crossmatch 03/23/19 03/24/19 03/24/19 17:47 00:00 04:50 WBC 35.0 H RBC Hgb 10.4 L Hct 32.4 L MCV RDW Plt Count 60 L Lymph % (Auto) [place] % (Auto) Lymph # Seg Neutrophils % Seg Neuts % (Manual) 93.0 H Lymphocytes % (Manual) 5.0 L Monocytes % (Manual) Nucleated RBC % 7.0 H Seg Neutrophils # Seg Neutrophils # Man 32.6 H Lymphocytes # (Manual) Monocytes # (Manual) PT INR D-Dimer Heparin Anti-Xa Level POC ABG pH ABG pH POC ABG pCO2 POC ABG pO2 ABG pO2 ABG HCO3 ABG O2 Saturation ABG Base Excess ABG Hemoglobin Oxyhemoglobin Sodium Potassium Chloride Carbon Dioxide BUN Creatinine Glucose POC Glucose 111 H 108 H Lactic Acid Calcium Ionized Calcium Phosphorus Magnesium Iron TIBC Ferritin Total Bilirubin Direct Bilirubin AST ALT Alkaline Phosphatase Total Creatine Kinase CK-MB (CK-2) Troponin T C-Reactive Protein Total Protein Albumin Triglycerides LDL Cholesterol Direct HDL Cholesterol Free T4 PTH Intact Urine WBC (Auto) Urine Creatinine Salicylates Acetaminophen Crossmatch 03/24/19 03/24/19 03/24/19 04:50 05:06 12:55 WBC RBC Hgb Hct MCV RDW Plt Count Lymph % (Auto) [place] % (Auto) Lymph # Seg Neutrophils % Seg Neuts % (Manual) Lymphocytes % (Manual) Monocytes % (Manual) Nucleated RBC % Seg Neutrophils # Seg Neutrophils # Man Lymphocytes # (Manual) Monocytes # (Manual) PT INR D-Dimer Heparin Anti-Xa Level POC ABG pH ABG pH POC ABG pCO2 POC ABG pO2 ABG pO2 ABG HCO3 ABG O2 Saturation ABG Base Excess ABG Hemoglobin Oxyhemoglobin Sodium 134 L Potassium 5.1 H Chloride 95.3 L Carbon Dioxide 21 L BUN 85 H Creatinine 6.4 H Glucose 109 H POC Glucose 112 H 110 H Lactic Acid Calcium 5.8 L* Ionized Calcium Phosphorus Magnesium Iron TIBC Ferritin Total Bilirubin Direct Bilirubin AST ALT Alkaline Phosphatase Total Creatine Kinase 5747 H CK-MB (CK-2) Troponin T C-Reactive Protein Total Protein Albumin Triglycerides LDL Cholesterol Direct HDL Cholesterol Free T4 PTH Intact Urine WBC (Auto) Urine Creatinine Salicylates Acetaminophen Crossmatch 03/24/19 03/25/19 03/25/19 23:29 05:00 05:00 WBC RBC Hgb Hct MCV RDW Plt Count Lymph % (Auto) [place] % (Auto) Lymph # Seg Neutrophils % Seg Neuts % (Manual) Lymphocytes % (Manual) Monocytes % (Manual) Nucleated RBC % Seg Neutrophils # Seg Neutrophils # Man Lymphocytes # (Manual) Monocytes # (Manual) PT INR D-Dimer Heparin Anti-Xa Level POC ABG pH ABG pH POC ABG pCO2 POC ABG pO2 ABG pO2 ABG HCO3 ABG O2 Saturation ABG Base Excess ABG Hemoglobin Oxyhemoglobin Sodium 133 L Potassium Chloride 94.0 L Carbon Dioxide 21 L BUN 81 H Creatinine 6.4 H Glucose POC Glucose 109 H Lactic Acid Calcium 5.5 L* Ionized Calcium Phosphorus Magnesium Iron TIBC Ferritin Total Bilirubin Direct Bilirubin AST 80 H ALT Alkaline Phosphatase 202 H Total Creatine Kinase 3589 H CK-MB (CK-2) Troponin T C-Reactive Protein Total Protein 5.3 L Albumin 2.4 L Triglycerides LDL Cholesterol Direct HDL Cholesterol Free T4 PTH Intact 329.9 H Urine WBC (Auto) Urine Creatinine Salicylates Acetaminophen Crossmatch 03/25/19 03/25/19 03/26/19 05:00 06:30 04:30 WBC 23.3 H RBC 3.61 L Hgb 10.2 L Hct 31.2 L MCV RDW Plt Count 57 L Lymph % (Auto) [place] % (Auto) Lymph # Seg Neutrophils % Seg Neuts % (Manual) 92.0 H Lymphocytes % (Manual) 6.0 L Monocytes % (Manual) Nucleated RBC % Seg Neutrophils # Seg Neutrophils # Man 21.4 H Lymphocytes # (Manual) Monocytes # (Manual) PT INR D-Dimer Heparin Anti-Xa Level POC ABG pH ABG pH 7.326 L POC ABG pCO2 POC ABG pO2 ABG pO2 109.5 H 137.4 H ABG HCO3 18.8 L 18.6 L ABG O2 Saturation ABG Base Excess -4.4 L -6.8 L ABG Hemoglobin 10.1 L 9.9 L Oxyhemoglobin Sodium Potassium Chloride Carbon Dioxide BUN Creatinine Glucose POC Glucose Lactic Acid Calcium Ionized Calcium Phosphorus Magnesium Iron TIBC Ferritin Total Bilirubin Direct Bilirubin AST ALT Alkaline Phosphatase Total Creatine Kinase CK-MB (CK-2) Troponin T C-Reactive Protein Total Protein Albumin Triglycerides LDL Cholesterol Direct HDL Cholesterol Free T4 PTH Intact Urine WBC (Auto) Urine Creatinine Salicylates Acetaminophen Crossmatch 03/26/19 03/26/19 03/26/19 23:22 Unknown Unknown WBC 19.5 H RBC 3.44 L Hgb 9.8 L Hct 29.9 L MCV RDW Plt Count 85 L Lymph % (Auto) [place] % (Auto) Lymph # Seg Neutrophils % Seg Neuts % (Manual) 95.0 H Lymphocytes % (Manual) 3.0 L Monocytes % (Manual) Nucleated RBC % Seg Neutrophils # Seg Neutrophils # Man 18.5 H Lymphocytes # (Manual) 0.6 L Monocytes # (Manual) PT INR D-Dimer Heparin Anti-Xa Level POC ABG pH ABG pH POC ABG pCO2 POC ABG pO2 ABG pO2 ABG HCO3 ABG O2 Saturation ABG Base Excess ABG Hemoglobin Oxyhemoglobin Sodium 135 L Potassium 5.2 H D Chloride 92.2 L Carbon Dioxide 18 L BUN 109 H Creatinine 8.5 H Glucose 117 H POC Glucose 69 L Lactic Acid Calcium 4.5 L* D Ionized Calcium Phosphorus Magnesium Iron TIBC Ferritin Total Bilirubin Direct Bilirubin AST ALT Alkaline Phosphatase Total Creatine Kinase 4527 H CK-MB (CK-2) Troponin T C-Reactive Protein Total Protein Albumin Triglycerides LDL Cholesterol Direct HDL Cholesterol Free T4 PTH Intact Urine WBC (Auto) Urine Creatinine Salicylates Acetaminophen Crossmatch 03/27/19 03/27/19 03/27/19 04:30 04:30 09:00 WBC 19.2 H RBC 3.42 L Hgb 9.9 L Hct 30.0 L MCV RDW Plt Count 84 L Lymph % (Auto) [place] % (Auto) Lymph # Seg Neutrophils % Seg Neuts % (Manual) Lymphocytes % (Manual) Monocytes % (Manual) Nucleated RBC % Seg Neutrophils # Seg Neutrophils # Man Lymphocytes # (Manual) Monocytes # (Manual) PT INR D-Dimer Heparin Anti-Xa Level POC ABG pH ABG pH POC ABG pCO2 POC ABG pO2 ABG pO2 ABG HCO3 ABG O2 Saturation ABG Base Excess ABG Hemoglobin Oxyhemoglobin Sodium 135 L Potassium Chloride 93.5 L Carbon Dioxide BUN 84 H Creatinine 7.1 H Glucose POC Glucose Lactic Acid Calcium 5.0 L* Ionized Calcium Phosphorus Magnesium Iron TIBC Ferritin Total Bilirubin Direct Bilirubin AST 78 H ALT Alkaline Phosphatase 135 H Total Creatine Kinase 4677 H CK-MB (CK-2) Troponin T C-Reactive Protein Total Protein 4.8 L Albumin 2.3 L Triglycerides 409 H LDL Cholesterol Direct HDL Cholesterol Free T4 PTH Intact Urine WBC (Auto) Urine Creatinine Salicylates Acetaminophen Crossmatch 03/27/19 03/27/19 03/27/19 12:37 14:15 14:15 WBC RBC Hgb 9.7 L Hct 29.5 L MCV RDW Plt Count 87 L Lymph % (Auto) [place] % (Auto) Lymph # Seg Neutrophils % Seg Neuts % (Manual) Lymphocytes % (Manual) Monocytes % (Manual) Nucleated RBC % Seg Neutrophils # Seg Neutrophils # Man Lymphocytes # (Manual) Monocytes # (Manual) PT 15.9 H INR 1.30 H D-Dimer Heparin Anti-Xa Level POC ABG pH ABG pH POC ABG pCO2 POC ABG pO2 ABG pO2 ABG HCO3 ABG O2 Saturation ABG Base Excess ABG Hemoglobin Oxyhemoglobin Sodium Potassium Chloride Carbon Dioxide BUN Creatinine Glucose POC Glucose 129 H Lactic Acid Calcium Ionized Calcium Phosphorus Magnesium Iron TIBC Ferritin Total Bilirubin Direct Bilirubin AST ALT Alkaline Phosphatase Total Creatine Kinase CK-MB (CK-2) Troponin T C-Reactive Protein Total Protein Albumin Triglycerides LDL Cholesterol Direct HDL Cholesterol Free T4 PTH Intact Urine WBC (Auto) Urine Creatinine Salicylates Acetaminophen Crossmatch 03/27/19 03/27/19 03/27/19 18:00 19:22 19:23 WBC RBC Hgb Hct MCV RDW Plt Count Lymph % (Auto) [place] % (Auto) Lymph # Seg Neutrophils % Seg Neuts % (Manual) Lymphocytes % (Manual) Monocytes % (Manual) Nucleated RBC % Seg Neutrophils # Seg Neutrophils # Man Lymphocytes # (Manual) Monocytes # (Manual) PT INR D-Dimer Heparin Anti-Xa Level < 0.10 L POC ABG pH ABG pH POC ABG pCO2 POC ABG pO2 ABG pO2 ABG HCO3 ABG O2 Saturation ABG Base Excess ABG Hemoglobin Oxyhemoglobin Sodium Potassium Chloride Carbon Dioxide BUN Creatinine Glucose POC Glucose 121 H Lactic Acid Calcium Ionized Calcium Phosphorus Magnesium Iron TIBC Ferritin Total Bilirubin Direct Bilirubin AST ALT Alkaline Phosphatase Total Creatine Kinase 4517 H CK-MB (CK-2) Troponin T C-Reactive Protein Total Protein Albumin Triglycerides LDL Cholesterol Direct HDL Cholesterol Free T4 PTH Intact Urine WBC (Auto) Urine Creatinine Salicylates Acetaminophen Crossmatch 03/27/19 03/27/19 03/28/19 22:10 23:52 03:49 WBC RBC Hgb Hct MCV RDW Plt Count Lymph % (Auto) [place] % (Auto) Lymph # Seg Neutrophils % Seg Neuts % (Manual) Lymphocytes % (Manual) Monocytes % (Manual) Nucleated RBC % Seg Neutrophils # Seg Neutrophils # Man Lymphocytes # (Manual) Monocytes # (Manual) PT INR D-Dimer Heparin Anti-Xa Level POC ABG pH 7.338 L ABG pH POC ABG pCO2 33.1 L POC ABG pO2 ABG pO2 ABG HCO3 ABG O2 Saturation ABG Base Excess ABG Hemoglobin Oxyhemoglobin Sodium Potassium Chloride Carbon Dioxide BUN Creatinine Glucose POC Glucose 113 H 117 H Lactic Acid Calcium Ionized Calcium Phosphorus Magnesium Iron TIBC Ferritin Total Bilirubin Direct Bilirubin AST ALT Alkaline Phosphatase Total Creatine Kinase CK-MB (CK-2) Troponin T C-Reactive Protein Total Protein Albumin Triglycerides LDL Cholesterol Direct HDL Cholesterol Free T4 PTH Intact Urine WBC (Auto) Urine Creatinine Salicylates Acetaminophen Crossmatch 03/28/19 03/28/19 03/28/19 05:13 05:13 06:18 WBC RBC Hgb Hct MCV RDW Plt Count Lymph % (Auto) [place] % (Auto) Lymph # Seg Neutrophils % Seg Neuts % (Manual) Lymphocytes % (Manual) Monocytes % (Manual) Nucleated RBC % Seg Neutrophils # Seg Neutrophils # Man Lymphocytes # (Manual) Monocytes # (Manual) PT INR D-Dimer Heparin Anti-Xa Level 0.23 L POC ABG pH ABG pH POC ABG pCO2 POC ABG pO2 ABG pO2 ABG HCO3 ABG O2 Saturation ABG Base Excess ABG Hemoglobin Oxyhemoglobin Sodium 135 L Potassium 5.5 H D Chloride 95.1 L Carbon Dioxide 16 L D BUN 129 H Creatinine 9.3 H Glucose 158 H POC Glucose 202 H Lactic Acid Calcium 4.0 L* D Ionized Calcium Phosphorus 12.40 H Magnesium Iron TIBC Ferritin Total Bilirubin Direct Bilirubin AST ALT Alkaline Phosphatase Total Creatine Kinase 4266 H CK-MB (CK-2) Troponin T C-Reactive Protein Total Protein Albumin Triglycerides LDL Cholesterol Direct HDL Cholesterol Free T4 PTH Intact Urine WBC (Auto) Urine Creatinine Salicylates Acetaminophen Crossmatch 03/28/19 03/28/19 03/28/19 08:25 10:00 12:00 WBC RBC Hgb 4.9 L* D Hct 15.4 L* D MCV RDW Plt Count Lymph % (Auto) [place] % (Auto) Lymph # Seg Neutrophils % Seg Neuts % (Manual) Lymphocytes % (Manual) Monocytes % (Manual) Nucleated RBC % Seg Neutrophils # Seg Neutrophils # Man Lymphocytes # (Manual) Monocytes # (Manual) PT 17.9 H INR 1.52 H D-Dimer 4845.98 H Heparin Anti-Xa Level POC ABG pH ABG pH POC ABG pCO2 POC ABG pO2 ABG pO2 ABG HCO3 ABG O2 Saturation ABG Base Excess ABG Hemoglobin Oxyhemoglobin Sodium Potassium Chloride Carbon Dioxide BUN Creatinine Glucose POC Glucose Lactic Acid Calcium Ionized Calcium Phosphorus Magnesium Iron TIBC Ferritin Total Bilirubin Direct Bilirubin AST ALT Alkaline Phosphatase Total Creatine Kinase CK-MB (CK-2) Troponin T C-Reactive Protein Total Protein Albumin Triglycerides LDL Cholesterol Direct HDL Cholesterol Free T4 PTH Intact Urine WBC (Auto) Urine Creatinine Salicylates Acetaminophen Crossmatch See Detail 03/28/19 03/28/19 03/28/19 12:28 14:10 17:43 WBC RBC Hgb 5.9 L* Hct 18.3 L* MCV RDW Plt Count Lymph % (Auto) [place] % (Auto) Lymph # Seg Neutrophils % Seg Neuts % (Manual) Lymphocytes % (Manual) Monocytes % (Manual) Nucleated RBC % Seg Neutrophils # Seg Neutrophils # Man Lymphocytes # (Manual) Monocytes # (Manual) PT INR D-Dimer Heparin Anti-Xa Level POC ABG pH ABG pH POC ABG pCO2 POC ABG pO2 ABG pO2 ABG HCO3 ABG O2 Saturation ABG Base Excess ABG Hemoglobin Oxyhemoglobin Sodium Potassium Chloride Carbon Dioxide BUN Creatinine Glucose POC Glucose 153 H 159 H Lactic Acid Calcium Ionized Calcium Phosphorus Magnesium Iron TIBC Ferritin Total Bilirubin Direct Bilirubin AST ALT Alkaline Phosphatase Total Creatine Kinase CK-MB (CK-2) Troponin T C-Reactive Protein Total Protein Albumin Triglycerides LDL Cholesterol Direct HDL Cholesterol Free T4 PTH Intact Urine WBC (Auto) Urine Creatinine Salicylates Acetaminophen Crossmatch 03/28/19 03/28/19 03/28/19 18:10 Unknown 23:59 WBC 24.8 H RBC 3.42 L Hgb 10.2 L D Hct 31.1 L D MCV RDW 15.4 H Plt Count 54 L Lymph % (Auto) [place] % (Auto) Lymph # Seg Neutrophils % Seg Neuts % (Manual) 91.0 H Lymphocytes % (Manual) 8.0 L Monocytes % (Manual) Nucleated RBC % Seg Neutrophils # Seg Neutrophils # Man 22.6 H Lymphocytes # (Manual) Monocytes # (Manual) PT INR D-Dimer Heparin Anti-Xa Level POC ABG pH ABG pH POC ABG pCO2 POC ABG pO2 ABG pO2 ABG HCO3 ABG O2 Saturation ABG Base Excess ABG Hemoglobin Oxyhemoglobin Sodium Potassium 5.7 H Chloride Carbon Dioxide BUN Creatinine Glucose POC Glucose 107 H Lactic Acid Calcium Ionized Calcium Phosphorus Magnesium Iron TIBC Ferritin Total Bilirubin Direct Bilirubin AST ALT Alkaline Phosphatase Total Creatine Kinase CK-MB (CK-2) Troponin T C-Reactive Protein Total Protein Albumin Triglycerides LDL Cholesterol Direct HDL Cholesterol Free T4 PTH Intact Urine WBC (Auto) Urine Creatinine Salicylates Acetaminophen Crossmatch 03/29/19 03/29/19 03/29/19 04:29 05:46 06:22 WBC RBC Hgb 8.6 L Hct 25.7 L MCV RDW Plt Count 93 L Lymph % (Auto) [place] % (Auto) Lymph # Seg Neutrophils % Seg Neuts % (Manual) Lymphocytes % (Manual) Monocytes % (Manual) Nucleated RBC % Seg Neutrophils # Seg Neutrophils # Man Lymphocytes # (Manual) Monocytes # (Manual) PT INR D-Dimer Heparin Anti-Xa Level POC ABG pH ABG pH POC ABG pCO2 32.2 L POC ABG pO2 ABG pO2 ABG HCO3 ABG O2 Saturation ABG Base Excess ABG Hemoglobin Oxyhemoglobin Sodium Potassium Chloride Carbon Dioxide BUN Creatinine Glucose POC Glucose 113 H Lactic Acid Calcium Ionized Calcium Phosphorus Magnesium Iron TIBC Ferritin Total Bilirubin Direct Bilirubin AST ALT Alkaline Phosphatase Total Creatine Kinase CK-MB (CK-2) Troponin T C-Reactive Protein Total Protein Albumin Triglycerides LDL Cholesterol Direct HDL Cholesterol Free T4 PTH Intact Urine WBC (Auto) Urine Creatinine Salicylates Acetaminophen Crossmatch 03/29/19 03/29/19 03/29/19 06:22 06:22 06:22 WBC 23.2 H RBC 2.91 L Hgb 8.6 L Hct 25.8 L MCV RDW Plt Count 91 L Lymph % (Auto) [place] % (Auto) Lymph # Seg Neutrophils % Seg Neuts % (Manual) Lymphocytes % (Manual) Monocytes % (Manual) Nucleated RBC % Seg Neutrophils # Seg Neutrophils # Man Lymphocytes # (Manual) Monocytes # (Manual) PT INR D-Dimer Heparin Anti-Xa Level POC ABG pH ABG pH POC ABG pCO2 POC ABG pO2 ABG pO2 ABG HCO3 ABG O2 Saturation ABG Base Excess ABG Hemoglobin Oxyhemoglobin Sodium 133 L Potassium Chloride 93.8 L Carbon Dioxide 18 L BUN 109 H Creatinine 7.4 H Glucose 124 H POC Glucose Lactic Acid Calcium 4.6 L* Ionized Calcium Phosphorus Magnesium Iron TIBC Ferritin Total Bilirubin Direct Bilirubin AST ALT Alkaline Phosphatase Total Creatine Kinase 3401 H CK-MB (CK-2) Troponin T C-Reactive Protein Total Protein Albumin Triglycerides 309 H LDL Cholesterol Direct HDL Cholesterol Free T4 PTH Intact Urine WBC (Auto) Urine Creatinine Salicylates Acetaminophen Crossmatch 03/29/19 03/29/19 03/29/19 11:48 11:48 18:24 WBC RBC Hgb 7.8 L Hct 23.2 L MCV RDW Plt Count Lymph % (Auto) [place] % (Auto) Lymph # Seg Neutrophils % Seg Neuts % (Manual) Lymphocytes % (Manual) Monocytes % (Manual) Nucleated RBC % Seg Neutrophils # Seg Neutrophils # Man Lymphocytes # (Manual) Monocytes # (Manual) PT 15.3 H INR 1.24 H D-Dimer Heparin Anti-Xa Level POC ABG pH ABG pH POC ABG pCO2 POC ABG pO2 ABG pO2 ABG HCO3 ABG O2 Saturation ABG Base Excess ABG Hemoglobin Oxyhemoglobin Sodium Potassium Chloride Carbon Dioxide BUN Creatinine Glucose POC Glucose 122 H Lactic Acid Calcium Ionized Calcium Phosphorus Magnesium Iron TIBC Ferritin Total Bilirubin Direct Bilirubin AST ALT Alkaline Phosphatase Total Creatine Kinase CK-MB (CK-2) Troponin T C-Reactive Protein Total Protein Albumin Triglycerides LDL Cholesterol Direct HDL Cholesterol Free T4 PTH Intact Urine WBC (Auto) Urine Creatinine Salicylates Acetaminophen Crossmatch 03/30/19 03/30/19 03/30/19 00:40 04:31 05:04 WBC RBC Hgb 7.6 L Hct 23.0 L MCV RDW Plt Count Lymph % (Auto) [place] % (Auto) Lymph # Seg Neutrophils % Seg Neuts % (Manual) Lymphocytes % (Manual) Monocytes % (Manual) Nucleated RBC % Seg Neutrophils # Seg Neutrophils # Man Lymphocytes # (Manual) Monocytes # (Manual) PT INR D-Dimer Heparin Anti-Xa Level POC ABG pH 7.346 L ABG pH POC ABG pCO2 POC ABG pO2 62 L ABG pO2 ABG HCO3 ABG O2 Saturation ABG Base Excess ABG Hemoglobin Oxyhemoglobin Sodium Potassium Chloride Carbon Dioxide BUN 79 H Creatinine 6.4 H Glucose POC Glucose Lactic Acid Calcium 6.1 L D Ionized Calcium Phosphorus Magnesium Iron TIBC Ferritin Total Bilirubin Direct Bilirubin AST ALT Alkaline Phosphatase Total Creatine Kinase CK-MB (CK-2) Troponin T C-Reactive Protein Total Protein Albumin Triglycerides LDL Cholesterol Direct HDL Cholesterol Free T4 PTH Intact Urine WBC (Auto) Urine Creatinine Salicylates Acetaminophen Crossmatch 03/30/19 03/30/19 03/30/19 08:45 12:09 22:43 WBC 14.3 H RBC 2.33 L Hgb 7.0 L 7.4 L Hct 21.0 L 22.3 L MCV RDW 15.6 H Plt Count 135 L Lymph % (Auto) [place] % (Auto) Lymph # Seg Neutrophils % Seg Neuts % (Manual) Lymphocytes % (Manual) Monocytes % (Manual) Nucleated RBC % Seg Neutrophils # Seg Neutrophils # Man Lymphocytes # (Manual) Monocytes # (Manual) PT INR D-Dimer Heparin Anti-Xa Level POC ABG pH ABG pH POC ABG pCO2 POC ABG pO2 ABG pO2 ABG HCO3 ABG O2 Saturation ABG Base Excess ABG Hemoglobin Oxyhemoglobin Sodium Potassium Chloride Carbon Dioxide BUN Creatinine Glucose POC Glucose Lactic Acid Calcium Ionized Calcium 3.7 L Phosphorus Magnesium Iron TIBC Ferritin Total Bilirubin Direct Bilirubin AST ALT Alkaline Phosphatase Total Creatine Kinase CK-MB (CK-2) Troponin T C-Reactive Protein Total Protein Albumin Triglycerides LDL Cholesterol Direct HDL Cholesterol Free T4 PTH Intact Urine WBC (Auto) Urine Creatinine Salicylates Acetaminophen Crossmatch 03/30/19 03/30/19 03/31/19 23:38 Unknown 04:44 WBC 11.5 H RBC 2.40 L Hgb 7.3 L Hct 21.9 L MCV RDW 15.4 H Plt Count Lymph % (Auto) 10.6 L [place] % (Auto) Lymph # Seg Neutrophils % 81.7 H Seg Neuts % (Manual) Lymphocytes % (Manual) Monocytes % (Manual) Nucleated RBC % Seg Neutrophils # 9.4 H Seg Neutrophils # Man Lymphocytes # (Manual) Monocytes # (Manual) PT INR D-Dimer Heparin Anti-Xa Level POC ABG pH ABG pH POC ABG pCO2 POC ABG pO2 ABG pO2 ABG HCO3 ABG O2 Saturation ABG Base Excess ABG Hemoglobin Oxyhemoglobin Sodium Potassium Chloride Carbon Dioxide BUN Creatinine Glucose POC Glucose 155 H Lactic Acid Calcium Ionized Calcium Phosphorus Magnesium Iron TIBC Ferritin Total Bilirubin Direct Bilirubin 0.4 H AST 63 H ALT Alkaline Phosphatase Total Creatine Kinase CK-MB (CK-2) Troponin T C-Reactive Protein Total Protein 4.9 L Albumin 2.2 L Triglycerides LDL Cholesterol Direct HDL Cholesterol Free T4 PTH Intact Urine WBC (Auto) Urine Creatinine Salicylates Acetaminophen Crossmatch 03/31/19 03/31/19 03/31/19 04:44 05:44 08:20 WBC RBC Hgb Hct MCV RDW Plt Count Lymph % (Auto) [place] % (Auto) Lymph # Seg Neutrophils % Seg Neuts % (Manual) Lymphocytes % (Manual) Monocytes % (Manual) Nucleated RBC % Seg Neutrophils # Seg Neutrophils # Man Lymphocytes # (Manual) Monocytes # (Manual) PT INR D-Dimer Heparin Anti-Xa Level POC ABG pH ABG pH POC ABG pCO2 53.5 H POC ABG pO2 62 L ABG pO2 ABG HCO3 ABG O2 Saturation ABG Base Excess ABG Hemoglobin Oxyhemoglobin Sodium 135 L Potassium Chloride 96.7 L Carbon Dioxide 19 L BUN 94 H Creatinine 7.8 H Glucose POC Glucose Lactic Acid Calcium 5.3 L* Ionized Calcium Phosphorus 8.20 H Magnesium Iron TIBC Ferritin Total Bilirubin Direct Bilirubin 0.4 H AST 60 H ALT Alkaline Phosphatase Total Creatine Kinase CK-MB (CK-2) Troponin T C-Reactive Protein Total Protein 4.8 L Albumin 2.1 L Triglycerides LDL Cholesterol Direct HDL Cholesterol Free T4 PTH Intact Urine WBC (Auto) Urine Creatinine Salicylates Acetaminophen Crossmatch 03/31/19 04/01/19 04/01/19 22:14 04:27 04:27 WBC RBC 2.60 L Hgb 8.0 L Hct 24.1 L MCV RDW 15.7 H Plt Count Lymph % (Auto) 7.9 L [place] % (Auto) Lymph # 0.7 L Seg Neutrophils % 83.6 H Seg Neuts % (Manual) Lymphocytes % (Manual) Monocytes % (Manual) Nucleated RBC % Seg Neutrophils # Seg Neutrophils # Man Lymphocytes # (Manual) Monocytes # (Manual) PT INR D-Dimer Heparin Anti-Xa Level POC ABG pH 7.286 L ABG pH POC ABG pCO2 54.7 H POC ABG pO2 179 H ABG pO2 ABG HCO3 ABG O2 Saturation ABG Base Excess ABG Hemoglobin Oxyhemoglobin Sodium Potassium Chloride Carbon Dioxide BUN 68 H Creatinine 6.6 H Glucose POC Glucose Lactic Acid Calcium 6.5 L D Ionized Calcium Phosphorus 7.30 H Magnesium Iron TIBC Ferritin Total Bilirubin Direct Bilirubin AST ALT Alkaline Phosphatase Total Creatine Kinase 1652 H CK-MB (CK-2) Troponin T C-Reactive Protein Total Protein Albumin Triglycerides LDL Cholesterol Direct HDL Cholesterol Free T4 PTH Intact Urine WBC (Auto) Urine Creatinine Salicylates Acetaminophen Crossmatch 04/01/19 04/01/19 04/01/19 05:14 05:37 18:37 WBC RBC Hgb Hct MCV RDW Plt Count Lymph % (Auto) [place] % (Auto) Lymph # Seg Neutrophils % Seg Neuts % (Manual) Lymphocytes % (Manual) Monocytes % (Manual) Nucleated RBC % Seg Neutrophils # Seg Neutrophils # Man Lymphocytes # (Manual) Monocytes # (Manual) PT INR D-Dimer Heparin Anti-Xa Level POC ABG pH 7.283 L ABG pH POC ABG pCO2 53.4 H POC ABG pO2 241 H ABG pO2 ABG HCO3 ABG O2 Saturation ABG Base Excess ABG Hemoglobin Oxyhemoglobin Sodium Potassium Chloride Carbon Dioxide BUN Creatinine Glucose POC Glucose 111 H 119 H Lactic Acid Calcium Ionized Calcium Phosphorus Magnesium Iron TIBC Ferritin Total Bilirubin Direct Bilirubin AST ALT Alkaline Phosphatase Total Creatine Kinase CK-MB (CK-2) Troponin T C-Reactive Protein Total Protein Albumin Triglycerides LDL Cholesterol Direct HDL Cholesterol Free T4 PTH Intact Urine WBC (Auto) Urine Creatinine Salicylates Acetaminophen Crossmatch 04/01/19 04/02/19 04/02/19 21:28 04:40 05:03 WBC RBC 2.36 L Hgb 7.2 L Hct 21.9 L MCV RDW 16.0 H Plt Count Lymph % (Auto) 10.8 L [place] % (Auto) Lymph # 0.8 L Seg Neutrophils % 80.3 H Seg Neuts % (Manual) Lymphocytes % (Manual) Monocytes % (Manual) Nucleated RBC % Seg Neutrophils # Seg Neutrophils # Man Lymphocytes # (Manual) Monocytes # (Manual) PT INR D-Dimer Heparin Anti-Xa Level POC ABG pH 7.299 L 7.300 L ABG pH POC ABG pCO2 48.2 H 45.2 H POC ABG pO2 133 H 107 H ABG pO2 ABG HCO3 ABG O2 Saturation ABG Base Excess ABG Hemoglobin Oxyhemoglobin Sodium Potassium Chloride Carbon Dioxide BUN Creatinine Glucose POC Glucose Lactic Acid Calcium Ionized Calcium Phosphorus Magnesium Iron TIBC Ferritin Total Bilirubin Direct Bilirubin AST ALT Alkaline Phosphatase Total Creatine Kinase CK-MB (CK-2) Troponin T C-Reactive Protein Total Protein Albumin Triglycerides LDL Cholesterol Direct HDL Cholesterol Free T4 PTH Intact Urine WBC (Auto) Urine Creatinine Salicylates Acetaminophen Crossmatch 04/02/19 04/02/19 04/02/19 05:03 05:03 12:15 WBC RBC Hgb 7.4 L Hct 22.6 L MCV RDW Plt Count Lymph % (Auto) [place] % (Auto) Lymph # Seg Neutrophils % Seg Neuts % (Manual) Lymphocytes % (Manual) Monocytes % (Manual) Nucleated RBC % Seg Neutrophils # Seg Neutrophils # Man Lymphocytes # (Manual) Monocytes # (Manual) PT INR D-Dimer Heparin Anti-Xa Level POC ABG pH ABG pH POC ABG pCO2 POC ABG pO2 ABG pO2 ABG HCO3 ABG O2 Saturation ABG Base Excess ABG Hemoglobin Oxyhemoglobin Sodium 136 L Potassium Chloride 97.8 L Carbon Dioxide 18 L BUN 82 H Creatinine 8.2 H Glucose POC Glucose Lactic Acid Calcium 6.7 L Ionized Calcium Phosphorus 7.50 H Magnesium Iron 26 L TIBC 138 L Ferritin 607.0 H Total Bilirubin Direct Bilirubin AST ALT Alkaline Phosphatase Total Creatine Kinase CK-MB (CK-2) Troponin T C-Reactive Protein Total Protein Albumin Triglycerides LDL Cholesterol Direct HDL Cholesterol Free T4 PTH Intact Urine WBC (Auto) Urine Creatinine Salicylates Acetaminophen Crossmatch 04/02/19 04/02/19 04/03/19 16:34 17:14 04:18 WBC RBC Hgb Hct MCV RDW Plt Count Lymph % (Auto) [place] % (Auto) Lymph # Seg Neutrophils % Seg Neuts % (Manual) Lymphocytes % (Manual) Monocytes % (Manual) Nucleated RBC % Seg Neutrophils # Seg Neutrophils # Man Lymphocytes # (Manual) Monocytes # (Manual) PT INR D-Dimer Heparin Anti-Xa Level POC ABG pH ABG pH POC ABG pCO2 POC ABG pO2 146 H ABG pO2 ABG HCO3 ABG O2 Saturation ABG Base Excess ABG Hemoglobin Oxyhemoglobin Sodium Potassium Chloride Carbon Dioxide BUN Creatinine Glucose POC Glucose 108 H Lactic Acid Calcium Ionized Calcium Phosphorus Magnesium Iron TIBC Ferritin Total Bilirubin Direct Bilirubin AST ALT Alkaline Phosphatase Total Creatine Kinase CK-MB (CK-2) Troponin T C-Reactive Protein Total Protein Albumin Triglycerides LDL Cholesterol Direct HDL Cholesterol Free T4 PTH Intact Urine WBC (Auto) Urine Creatinine Salicylates Acetaminophen Crossmatch See Detail 04/03/19 04/03/19 04/03/19 04:25 08:30 18:24 WBC RBC 2.40 L Hgb 7.3 L Hct 21.9 L MCV RDW Plt Count Lymph % (Auto) [place] % (Auto) 7.7 H Lymph # 0.9 L Seg Neutrophils % 74.6 H Seg Neuts % (Manual) Lymphocytes % (Manual) Monocytes % (Manual) Nucleated RBC % Seg Neutrophils # Seg Neutrophils # Man Lymphocytes # (Manual) Monocytes # (Manual) PT INR D-Dimer Heparin Anti-Xa Level POC ABG pH ABG pH POC ABG pCO2 POC ABG pO2 ABG pO2 ABG HCO3 ABG O2 Saturation ABG Base Excess ABG Hemoglobin Oxyhemoglobin Sodium 136 L Potassium Chloride 97.0 L Carbon Dioxide BUN 58 H Creatinine 7.3 H Glucose POC Glucose 106 H Lactic Acid Calcium 7.5 L Ionized Calcium Phosphorus 5.80 H D Magnesium Iron TIBC Ferritin Total Bilirubin Direct Bilirubin AST ALT Alkaline Phosphatase Total Creatine Kinase CK-MB (CK-2) Troponin T C-Reactive Protein Total Protein Albumin Triglycerides LDL Cholesterol Direct HDL Cholesterol Free T4 PTH Intact Urine WBC (Auto) Urine Creatinine Salicylates Acetaminophen Crossmatch 04/03/19 04/04/19 04/04/19 23:43 04:47 04:47 WBC RBC 2.72 L Hgb 8.3 L Hct 24.7 L MCV RDW 15.6 H Plt Count Lymph % (Auto) [place] % (Auto) 10.1 H Lymph # 0.8 L Seg Neutrophils % 71.4 H Seg Neuts % (Manual) Lymphocytes % (Manual) Monocytes % (Manual) Nucleated RBC % Seg Neutrophils # Seg Neutrophils # Man Lymphocytes # (Manual) Monocytes # (Manual) PT INR D-Dimer Heparin Anti-Xa Level POC ABG pH ABG pH POC ABG pCO2 POC ABG pO2 ABG pO2 123.8 H ABG HCO3 ABG O2 Saturation ABG Base Excess -3.0 L ABG Hemoglobin 7.9 L Oxyhemoglobin Sodium 134 L Potassium Chloride 97.9 L Carbon Dioxide BUN 64 H Creatinine 8.1 H Glucose POC Glucose Lactic Acid Calcium 7.2 L Ionized Calcium Phosphorus Magnesium Iron TIBC Ferritin Total Bilirubin Direct Bilirubin AST ALT Alkaline Phosphatase Total Creatine Kinase CK-MB (CK-2) Troponin T C-Reactive Protein Total Protein Albumin Triglycerides LDL Cholesterol Direct HDL Cholesterol Free T4 PTH Intact Urine WBC (Auto) Urine Creatinine Salicylates Acetaminophen Crossmatch 04/04/19 04/04/19 04/04/19 06:07 13:40 18:18 WBC RBC Hgb Hct MCV RDW Plt Count Lymph % (Auto) [place] % (Auto) Lymph # Seg Neutrophils % Seg Neuts % (Manual) Lymphocytes % (Manual) Monocytes % (Manual) Nucleated RBC % Seg Neutrophils # Seg Neutrophils # Man Lymphocytes # (Manual) Monocytes # (Manual) PT INR D-Dimer Heparin Anti-Xa Level POC ABG pH ABG pH POC ABG pCO2 POC ABG pO2 ABG pO2 95.9 H ABG HCO3 ABG O2 Saturation ABG Base Excess -3.0 L ABG Hemoglobin 8.5 L Oxyhemoglobin Sodium Potassium Chloride Carbon Dioxide BUN Creatinine Glucose POC Glucose 107 H 107 H Lactic Acid Calcium Ionized Calcium Phosphorus Magnesium Iron TIBC Ferritin Total Bilirubin Direct Bilirubin AST ALT Alkaline Phosphatase Total Creatine Kinase CK-MB (CK-2) Troponin T C-Reactive Protein Total Protein Albumin Triglycerides LDL Cholesterol Direct HDL Cholesterol Free T4 PTH Intact Urine WBC (Auto) Urine Creatinine Salicylates Acetaminophen Crossmatch 04/04/19 04/05/19 04/05/19 21:22 04:09 04:09 WBC RBC 2.76 L Hgb 8.4 L Hct 25.4 L MCV RDW 15.8 H Plt Count 133 L Lymph % (Auto) [place] % (Auto) 9.6 H Lymph # 0.7 L Seg Neutrophils % 72.6 H Seg Neuts % (Manual) Lymphocytes % (Manual) Monocytes % (Manual) Nucleated RBC % Seg Neutrophils # Seg Neutrophils # Man Lymphocytes # (Manual) Monocytes # (Manual) PT INR D-Dimer Heparin Anti-Xa Level POC ABG pH ABG pH POC ABG pCO2 47.2 H POC ABG pO2 137 H ABG pO2 ABG HCO3 ABG O2 Saturation ABG Base Excess ABG Hemoglobin Oxyhemoglobin Sodium 136 L Potassium Chloride Carbon Dioxide BUN 46 H Creatinine 6.7 H Glucose POC Glucose Lactic Acid Calcium 7.7 L Ionized Calcium Phosphorus Magnesium Iron TIBC Ferritin Total Bilirubin Direct Bilirubin AST ALT Alkaline Phosphatase Total Creatine Kinase CK-MB (CK-2) Troponin T C-Reactive Protein Total Protein Albumin Triglycerides LDL Cholesterol Direct HDL Cholesterol Free T4 PTH Intact Urine WBC (Auto) Urine Creatinine Salicylates Acetaminophen Crossmatch 04/05/19 04/05/19 04/05/19 05:28 06:14 16:50 WBC RBC Hgb Hct MCV RDW Plt Count Lymph % (Auto) [place] % (Auto) Lymph # Seg Neutrophils % Seg Neuts % (Manual) Lymphocytes % (Manual) Monocytes % (Manual) Nucleated RBC % Seg Neutrophils # Seg Neutrophils # Man Lymphocytes # (Manual) Monocytes # (Manual) PT INR D-Dimer Heparin Anti-Xa Level POC ABG pH ABG pH POC ABG pCO2 POC ABG pO2 67 L ABG pO2 ABG HCO3 ABG O2 Saturation ABG Base Excess ABG Hemoglobin Oxyhemoglobin Sodium Potassium Chloride Carbon Dioxide BUN Creatinine Glucose POC Glucose 108 H Lactic Acid Calcium Ionized Calcium Phosphorus Magnesium Iron TIBC Ferritin Total Bilirubin Direct Bilirubin AST ALT Alkaline Phosphatase Total Creatine Kinase CK-MB (CK-2) Troponin T C-Reactive Protein Total Protein Albumin Triglycerides LDL Cholesterol Direct HDL Cholesterol Free T4 PTH Intact Urine WBC (Auto) 40.0 H Urine Creatinine Salicylates Acetaminophen Crossmatch 04/05/19 04/06/19 04/06/19 17:22 00:13 04:44 WBC RBC 2.48 L Hgb 7.5 L Hct 22.9 L MCV RDW 16.0 H Plt Count 107 L Lymph % (Auto) [place] % (Auto) 10.7 H Lymph # 1.0 L Seg Neutrophils % Seg Neuts % (Manual) Lymphocytes % (Manual) Monocytes % (Manual) Nucleated RBC % Seg Neutrophils # Seg Neutrophils # Man Lymphocytes # (Manual) Monocytes # (Manual) PT INR D-Dimer Heparin Anti-Xa Level POC ABG pH ABG pH POC ABG pCO2 POC ABG pO2 ABG pO2 ABG HCO3 ABG O2 Saturation ABG Base Excess ABG Hemoglobin Oxyhemoglobin Sodium Potassium Chloride Carbon Dioxide BUN Creatinine Glucose POC Glucose 118 H 138 H Lactic Acid Calcium Ionized Calcium Phosphorus Magnesium Iron TIBC Ferritin Total Bilirubin Direct Bilirubin AST ALT Alkaline Phosphatase Total Creatine Kinase CK-MB (CK-2) Troponin T C-Reactive Protein Total Protein Albumin Triglycerides LDL Cholesterol Direct HDL Cholesterol Free T4 PTH Intact Urine WBC (Auto) Urine Creatinine Salicylates Acetaminophen Crossmatch 04/06/19 04/06/19 04/06/19 04:44 05:20 05:23 WBC RBC Hgb Hct MCV RDW Plt Count Lymph % (Auto) [place] % (Auto) Lymph # Seg Neutrophils % Seg Neuts % (Manual) Lymphocytes % (Manual) Monocytes % (Manual) Nucleated RBC % Seg Neutrophils # Seg Neutrophils # Man Lymphocytes # (Manual) Monocytes # (Manual) PT INR D-Dimer Heparin Anti-Xa Level POC ABG pH ABG pH POC ABG pCO2 POC ABG pO2 ABG pO2 104.0 H ABG HCO3 ABG O2 Saturation ABG Base Excess -2.1 L ABG Hemoglobin 7.3 L Oxyhemoglobin Sodium Potassium Chloride Carbon Dioxide BUN 64 H Creatinine 8.2 H Glucose 103 H POC Glucose 118 H Lactic Acid Calcium 7.3 L Ionized Calcium Phosphorus Magnesium Iron TIBC Ferritin Total Bilirubin Direct Bilirubin AST ALT Alkaline Phosphatase Total Creatine Kinase CK-MB (CK-2) Troponin T C-Reactive Protein Total Protein Albumin Triglycerides LDL Cholesterol Direct HDL Cholesterol Free T4 PTH Intact Urine WBC (Auto) Urine Creatinine Salicylates Acetaminophen Crossmatch 04/06/19 04/07/19 04/07/19 12:02 05:40 05:40 WBC RBC 2.59 L Hgb 7.9 L Hct 23.8 L MCV RDW 15.8 H Plt Count 89 L Lymph % (Auto) [place] % (Auto) 10.3 H Lymph # 1.1 L Seg Neutrophils % Seg Neuts % (Manual) Lymphocytes % (Manual) Monocytes % (Manual) Nucleated RBC % Seg Neutrophils # Seg Neutrophils # Man Lymphocytes # (Manual) Monocytes # (Manual) PT INR D-Dimer Heparin Anti-Xa Level POC ABG pH ABG pH POC ABG pCO2 POC ABG pO2 ABG pO2 ABG HCO3 ABG O2 Saturation ABG Base Excess ABG Hemoglobin Oxyhemoglobin Sodium 136 L Potassium 3.5 L Chloride Carbon Dioxide BUN 46 H Creatinine 6.2 H Glucose POC Glucose 108 H Lactic Acid Calcium 7.9 L Ionized Calcium Phosphorus Magnesium Iron TIBC Ferritin Total Bilirubin Direct Bilirubin AST ALT Alkaline Phosphatase Total Creatine Kinase CK-MB (CK-2) Troponin T C-Reactive Protein Total Protein Albumin Triglycerides LDL Cholesterol Direct HDL Cholesterol Free T4 PTH Intact Urine WBC (Auto) Urine Creatinine Salicylates Acetaminophen Crossmatch 04/07/19 04/09/19 04/09/19 12:57 04:28 04:28 WBC RBC 2.85 L Hgb 8.7 L Hct 26.2 L MCV RDW 15.6 H Plt Count Lymph % (Auto) [place] % (Auto) 10.4 H Lymph # 1.0 L Seg Neutrophils % 73.3 H Seg Neuts % (Manual) Lymphocytes % (Manual) Monocytes % (Manual) Nucleated RBC % Seg Neutrophils # Seg Neutrophils # Man Lymphocytes # (Manual) Monocytes # (Manual) PT INR D-Dimer Heparin Anti-Xa Level POC ABG pH ABG pH POC ABG pCO2 POC ABG pO2 107 H ABG pO2 ABG HCO3 ABG O2 Saturation ABG Base Excess ABG Hemoglobin Oxyhemoglobin Sodium Potassium 3.5 L Chloride 97.8 L Carbon Dioxide BUN 62 H Creatinine 8.1 H Glucose POC Glucose Lactic Acid Calcium 8.2 L Ionized Calcium Phosphorus 5.10 H Magnesium Iron TIBC Ferritin Total Bilirubin Direct Bilirubin AST ALT Alkaline Phosphatase Total Creatine Kinase CK-MB (CK-2) Troponin T C-Reactive Protein Total Protein Albumin Triglycerides LDL Cholesterol Direct HDL Cholesterol Free T4 PTH Intact Urine WBC (Auto) Urine Creatinine Salicylates Acetaminophen Crossmatch 04/10/19 04/11/19 04/11/19 18:15 00:25 04:16 WBC 11.5 H RBC 2.91 L Hgb 8.9 L Hct 27.6 L MCV 95 H RDW 17.5 H Plt Count Lymph % (Auto) [place] % (Auto) Lymph # Seg Neutrophils % Seg Neuts % (Manual) 71.0 H Lymphocytes % (Manual) Monocytes % (Manual) 8.0 H Nucleated RBC % Seg Neutrophils # Seg Neutrophils # Man 8.2 H Lymphocytes # (Manual) Monocytes # (Manual) 0.9 H PT INR D-Dimer Heparin Anti-Xa Level POC ABG pH ABG pH POC ABG pCO2 POC ABG pO2 ABG pO2 ABG HCO3 ABG O2 Saturation ABG Base Excess ABG Hemoglobin Oxyhemoglobin Sodium Potassium Chloride Carbon Dioxide BUN Creatinine Glucose POC Glucose 109 H 114 H Lactic Acid Calcium Ionized Calcium Phosphorus Magnesium Iron TIBC Ferritin Total Bilirubin Direct Bilirubin AST ALT Alkaline Phosphatase Total Creatine Kinase CK-MB (CK-2) Troponin T C-Reactive Protein Total Protein Albumin Triglycerides LDL Cholesterol Direct HDL Cholesterol Free T4 PTH Intact Urine WBC (Auto) Urine Creatinine Salicylates Acetaminophen Crossmatch 04/11/19 04/11/19 04/11/19 06:47 09:21 12:15 WBC RBC Hgb Hct MCV RDW Plt Count Lymph % (Auto) [place] % (Auto) Lymph # Seg Neutrophils % Seg Neuts % (Manual) Lymphocytes % (Manual) Monocytes % (Manual) Nucleated RBC % Seg Neutrophils # Seg Neutrophils # Man Lymphocytes # (Manual) Monocytes # (Manual) PT INR D-Dimer Heparin Anti-Xa Level POC ABG pH ABG pH POC ABG pCO2 POC ABG pO2 ABG pO2 ABG HCO3 ABG O2 Saturation ABG Base Excess ABG Hemoglobin Oxyhemoglobin Sodium Potassium 3.5 L Chloride Carbon Dioxide BUN 45 H Creatinine 6.0 H Glucose 113 H POC Glucose 106 H 109 H Lactic Acid Calcium Ionized Calcium Phosphorus Magnesium Iron TIBC Ferritin Total Bilirubin Direct Bilirubin AST ALT Alkaline Phosphatase Total Creatine Kinase CK-MB (CK-2) Troponin T C-Reactive Protein Total Protein Albumin Triglycerides LDL Cholesterol Direct HDL Cholesterol Free T4 PTH Intact Urine WBC (Auto) Urine Creatinine Salicylates Acetaminophen Crossmatch 04/11/19 04/12/19 18:42 12:13 WBC RBC Hgb Hct MCV RDW Plt Count Lymph % (Auto) [place] % (Auto) Lymph # Seg Neutrophils % Seg Neuts % (Manual) Lymphocytes % (Manual) Monocytes % (Manual) Nucleated RBC % Seg Neutrophils # Seg Neutrophils # Man Lymphocytes # (Manual) Monocytes # (Manual) PT INR D-Dimer Heparin Anti-Xa Level POC ABG pH ABG pH POC ABG pCO2 POC ABG pO2 ABG pO2 ABG HCO3 ABG O2 Saturation ABG Base Excess ABG Hemoglobin Oxyhemoglobin Sodium Potassium Chloride Carbon Dioxide BUN Creatinine Glucose POC Glucose 107 H 115 H Lactic Acid Calcium Ionized Calcium Phosphorus Magnesium Iron TIBC Ferritin Total Bilirubin Direct Bilirubin AST ALT Alkaline Phosphatase Total Creatine Kinase CK-MB (CK-2) Troponin T C-Reactive Protein Total Protein Albumin Triglycerides LDL Cholesterol Direct HDL Cholesterol Free T4 PTH Intact Urine WBC (Auto) Urine Creatinine Salicylates Acetaminophen Crossmatch Allied health notes reviewed: nursing
--- NOTE | 2019-04-12 16:44 | Progress Note ---
Assessment and Plan 1. Acute kidney injury: Vasomotor RUBEN in the setting of shock / volume depletion / Rhabdo. Baseline renal function is unknown. CT abdomen was negative for obstructive nephropathy. Monitor renal function. Renal prognosis is guarded. Avoid nephrotoxic agents. Meds dosage based on GFR. Patient was started on hemodialysis on 03/18/19 due to worsening metabolic acidosis and hyperkalemia. Hemodialysis: 03/18, 03/19, 03/20, 03/22, 03/23, 03/24, 03/26, 03/28, 03/29, 03/31, 04/02, 04/04, 04/06, 04/09, 04/11. 2. FEN: Hyperkalemia, improved. Hyponatremia, improved. Metabolic acidosis, on maintenance HD. Volume overload, UF with HD as tolerated. Hypocalcemia, likely multifactorial. On Phoslo and Zemplar. Monitor lytes. 3. Septic shock: Followed by ID. Currently off pressors. 4. Rhabdomyolysis: Improved. 5. A.fib with RVR: Amiodarone drip and IV Metoprolol. Followed by Cards. 6. Respiratory failure: Extubated. 7. Severe anemia: S/p PRBC. On Epogen. 8. Elevated transaminases. 9. Encephalopathy. Examination: General appearance: well-developed, appears stated age, obese HEENT: Atraumatic EYES: Pupils reacting to light Neck: supple Respiratory: CTAB, decreased breath sounds Cardiology: irregular, S1S2 heard, no murmur Gastrointestinal: no tenderness, obese, BS heard Integumentary: no rash noted Neurologic: opens eyes, not following command Ext: 1+ edema of all 4 extremities : scrotal edema noted Hemodialysis access: R IJ temp catheter Subjective Date of service: 04/12/19 Principal diagnosis: Septic Shock; Ac. hypoxemic resp failure; Renzo. PNA; Rhabdomyolysis; RUBEN Interval history: Patient was seen and examined at the bedside. Objective - Vital Signs Vital signs: Vital Signs - 12hr 04/12/19 04/12/19 04/12/19 04:44 05:00 05:27 Temperature 99.8 F H Pulse Rate 118 H 125 H Pulse Rate [ From Monitor] Respiratory 25 H Rate Blood Pressure 156/112 156/112 O2 Sat by Pulse 100 Oximetry 04/12/19 04/12/19 04/12/19 06:00 07:00 08:00 Temperature Pulse Rate 112 H 103 H 90 Pulse Rate [ 142 H From Monitor] Respiratory 25 H 26 H 22 Rate Blood Pressure 156/112 156/89 161/91 O2 Sat by Pulse 99 99 100 Oximetry 04/12/19 04/12/19 04/12/19 08:03 09:00 10:00 Temperature Pulse Rate 94 H 140 H Pulse Rate [ From Monitor] Respiratory 24 31 H Rate Blood Pressure 135/78 130/85 O2 Sat by Pulse 100 96 96 Oximetry 04/12/19 04/12/19 04/12/19 11:00 11:45 12:00 Temperature 99 F Pulse Rate 97 H 128 H 81 Pulse Rate [ 119 H From Monitor] Respiratory 34 H 28 H Rate Blood Pressure 142/91 142/91 143/86 O2 Sat by Pulse 97 97 Oximetry 04/12/19 04/12/19 13:00 16:11 Temperature Pulse Rate 124 H Pulse Rate [ From Monitor] Respiratory 33 H Rate Blood Pressure 143/80 O2 Sat by Pulse 96 95 Oximetry - Lab 04/11/19 04:16 04/11/19 09:21 Most recent lab results ABG pH 7.388 pH Units (7.350-7.450) 04/06/19 05:20 ABG pCO2 38.5 mm Hg 04/06/19 05:20 ABG pO2 104.0 mm Hg (80.0-90.0) H 04/06/19 05:20 ABG HCO3 22.6 mmol/L (20.0-26.0) 04/06/19 05:20 ABG O2 Saturation 97.8 % (95.0-99.0) 04/06/19 05:20 Calcium 8.9 mg/dL (8.4-10.2) 04/11/19 09:21 Phosphorus 5.10 mg/dL (2.5-4.5) H 04/09/19 04:28 Magnesium 1.90 mg/dL (1.7-2.3) 03/31/19 15:07 Urine Creatinine 106.6 mg/dL (0.1-20.0) H 03/17/19 16:05 Urine Sodium 95 mmol/L 03/17/19 16:05 Medications & Allergies - Medications Allergies/Adverse Reactions: Allergies No Known Allergies Allergy (Unverified 03/16/19 17:17) Home Medications: Home Medications Medication Instructions Recorded Confirmed Last Taken Type Unobtainable 03/18/19 03/18/19 Unknown History Active Medications: Generic Name Dose Route Start Last Admin Trade Name Freq PRN Reason Stop Dose Admin Acetaminophen 650 mg 04/02/19 23:26 04/12/19 05:28 Tylenol PO 650 mg Q4H PRN Administration Pain, Mild (1-3),temp>100.5 Albuterol 2.5 mg 03/29/19 13:08 Proventil IH Q4HRT PRN Shortness Of Breath Amiodarone HCl 400 mg 04/11/19 10:45 04/12/19 14:16 Cordarone PO 400 mg TID PAOLO Administration Bacitracin 1 applic 04/09/19 02:43 04/11/19 00:20 Antibiotic Oint TP 1 applic PRN PRN Administration upper lip sore/open Bumetanide 2 mg 04/10/19 18:00 04/12/19 05:27 Bumex IV 2 mg BID@0600,1800 PAOLO Administration Calcium Acetate 1,334 mg 03/31/19 14:00 04/12/19 14:16 Phoslo PO 1,334 mg TID PAOLO Administration Dextrose 50 gm 03/19/19 18:39 03/26/19 23:26 D50w (25gm) Vial IV 50 gm PRN PRN Administration Hypoglycemia Epoetin Jet 20,000 unit 03/31/19 10:15 04/06/19 10:41 Procrit SUB-Q 20,000 unit NEYMAR PRN Administration hemodialysis Hydrophilic Ointment 1 applic 03/16/19 15:50 Vaseline Lip Therapy TP Q2HR PRN Dry Lips Sodium Chloride 100 mls @ 999 mls/hr 04/09/19 07:02 Nacl 0.9% IV NEYMAR PRN Hypotension Sodium Chloride 100 mls @ 999 mls/hr 04/11/19 10:50 Nacl 0.9% IV NEYMAR PRN Hypotension Cefepime HCl 2 gm in 100 mls @ 200 mls/hr 04/11/19 18:00 04/11/19 17:17 Maxipime/Ns 2 Gm/100 Ml IV 200 mls/hr QPM PAOLO Administration Protocol Fluconazole 200 mg in 100 mls @ 100 mls/hr 04/11/19 20:00 04/12/19 10:10 Diflucan IV 04/15/19 23:59 100 mls/hr Q24HR PAOLO Administration Protocol Lansoprazole 30 mg 04/11/19 10:00 04/12/19 10:10 Prevacid Solutab FEEDTUBE 30 mg BID PAOLO Administration Metoprolol Tartrate 5 mg 04/11/19 11:00 04/12/19 11:45 Lopressor IV 5 mg Q6H PAOLO Administration Multi-Ingred Cream/Lotion/Oil/Oint 1 applic 03/16/19 15:50 03/19/19 20:10 Artificial Tears Ophth Oint OU 1 applic Q4HR PRN Administration Dry Eye(s) Ondansetron HCl 4 mg 03/16/19 22:21 04/11/19 20:49 Zofran IV 4 mg Q8H PRN Administration Nausea And Vomiting Paricalcitol 2 mcg 03/30/19 10:00 04/12/19 10:11 Zemplar IV 2 mcg DAILY PAOLO Administration
--- NOTE | 2019-04-12 16:47 | Progress Note ---
Assessment and Plan The high probability of a clinically significant, sudden or life threatening deterioration of the [] system(s) required my full and direct attention, intervention and personal management. The aggregate critical care time was [] minutes. This time is in addition to time spent performing reported procedures but includes the following: [x] Data Review and interpretation [x] Patient assessment and monitoring of vital signs [x] Documentation [x] Medication orders and management 43-year-old gentleman morbidly obesity presents in SVT with heart rate of 250 found to be in septic shock. #1 acute hypoxic respiratory failure arts patient self extubated himself. Appears to be stable oxygenation [place] this time. #2 atrial fibrillation patient was irregular CONTINUE AMIODARONE DRIP. MAY CHANGE TO BY MOUTH TITRATED UP ON BETA WISAM. CARDIOLOGY FOLLOWING. Dysarthria ventricular tachycardia resolved. 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 Patient is edematous throughout marked ascites throughout. 5 GI blood loss anemia secondary to peptic ulcer disease patient EGD consistent with this. Continue to follow ABC and bleeding. # 6 septic shock multifactorial. Continue present broad-spectrum antibiotics. 7 Acute Kidney Injury Patient Currently on Hemodialysis Now. Edematous Will Help with Fluid with Dialysis. 8 thrombocytopenia secondary to sepsis. Continue to monitor platelets. Treat underlying etiology of sepsis. Patient overall prognosis is extremely poor developing wounds. Unable to eat. Marked ascites acute hypoxic respiratory failure. - Patient Problems (1) Yeast dermatitis Current Visit: Yes Status: Acute Plan to address problem: treated with diflucan and local antifungal powder (2) Acute renal failure Current Visit: Yes Status: Acute Plan to address problem: Patient with acute renal failure volume overload currently receiving hemodialysis. Could of been secondary to volume depletion underline previous chronic kidney disease (3) Acute respiratory failure Current Visit: Yes Status: Acute Plan to address problem: Not requiring intubation did not require BiPAP over p.m. Pulmonology following. Remains 02 dependent. (4) Altered mental status Current Visit: Yes Status: Acute Plan to address problem: Patient remains somewhat encephalopathic. Alert and will respond to you. Most likely multifactorial acute kidney injury septic shock previous mental health disorder multifactorial. (5) Aspiration pneumonia Current Visit: Yes Status: Acute Plan to address problem: Could of potentially been one of the reasons for sepsis patient unable to really protect airways very well failed swallowing study has in G2 remains at risk for aspiration. (6) Atrial fibrillation with RVR Current Visit: Yes Status: Acute Plan to address problem: Patient rate suboptimal he control. Initiated on PO amiodarone today. More aggressive beta wisam control poor cardiology. Does not appear to be a candidate for radio ablation. May not survive anesthesia also rate of return would be very high. (7) Rhabdomyolysis Current Visit: Yes Status: Acute Plan to address problem: Resolving (8) Septic shock Current Visit: Yes Status: Acute Plan to address problem: Multifactorial patient remains on vancomycin in [facility] from 04 01 2019. Blood culture data on remarkable so far. Patient was able to wean off pressure support. Antibiotics per infectious disease (9) Thrombocytopenia Current Visit: Yes Status: Resolved (10) Morbid obesity with BMI of 50.0-59.9, adult Current Visit: Yes Status: Acute Plan to address problem: Will attempt to maintain caloric intake at this particular time. Patient remains acutely ill. (11) Anemia Current Visit: Yes Status: Acute Plan to address problem: Multifactorial chronic disease sepsis will transfuse as indicated. Subjective Date of service: 04/12/19 Principal diagnosis: Septic Shock; Ac. hypoxemic resp failure; Renzo. PNA; Rhabdomyolysis; RUBEN Interval history: pt remains minimally responsive. Patient will respond with sternal rub and loud voice. Also stated that he wanted to remain full code. Was even more alert than yesterday however after answer response will continue to close eyes and back to sleep. Objective - Constitutional Vitals: Vital Signs - 12hr 04/12/19 04/12/19 04/12/19 05:00 05:27 06:00 Temperature Pulse Rate 118 H 125 H 112 H Pulse Rate [ From Monitor] Respiratory 25 H 25 H Rate Blood Pressure 156/112 156/112 156/112 O2 Sat by Pulse 100 99 Oximetry 04/12/19 04/12/19 04/12/19 07:00 08:00 08:03 Temperature Pulse Rate 103 H 90 Pulse Rate [ 142 H From Monitor] Respiratory 26 H 22 Rate Blood Pressure 156/89 161/91 O2 Sat by Pulse 99 100 100 Oximetry 04/12/19 04/12/19 04/12/19 09:00 10:00 11:00 Temperature Pulse Rate 94 H 140 H 97 H Pulse Rate [ From Monitor] Respiratory 24 31 H 34 H Rate Blood Pressure 135/78 130/85 142/91 O2 Sat by Pulse 96 96 97 Oximetry 04/12/19 04/12/19 04/12/19 11:45 12:00 13:00 Temperature 99 F Pulse Rate 128 H 81 124 H Pulse Rate [ 119 H From Monitor] Respiratory 28 H 33 H Rate Blood Pressure 142/91 143/86 143/80 O2 Sat by Pulse 97 96 Oximetry 04/12/19 16:11 Temperature Pulse Rate Pulse Rate [ From Monitor] Respiratory Rate Blood Pressure O2 Sat by Pulse 95 Oximetry General appearance: Present: disheveled, other (Stuporus) - EENT Eyes: PERRL, EOM intact, no scleral icterus, no conjunctival injection, no exopthalmos, no miosis - Neck Neck: supple - Respiratory Respiratory: bilateral: diminished, rhonchi - Cardiovascular Rhythm: regularly irregular Extremity abnormal: edema, other (Adematous volume over low and ascites) - Gastrointestinal General gastrointestinal: Present: soft, non-tender, non-distended, hypoactive bowel sounds, other (Obese). Absent: hepatomegaly, splenomegaly - Integumentary Integumentary: erythema - Musculoskeletal Musculoskeletal: generalized weakness, other (Patient a debit is total body overloaded as well. New ulcer left and anti cubital area from yesterday. Now bandage.) - Neurologic Neurologic: focal deficits - Psychiatric Psychiatric: intact judgment & insight, memory intact - Labs CBC & Chem 7: 04/11/19 04:16 04/11/19 09:21 Labs: Abnormal lab results 04/11/19 04/12/19 Range/Units 18:42 12:13 POC Glucose 107 H 115 H (70-105) - Imaging and cardiology Chest x-ray: report reviewed MRI - head: report reviewed
[2019-04-12] MEDS: CEFEPIME/NS 2 GM/100 ML 2 GM/100 ML BAG IV SCH (18:03)
[2019-04-13 05:32] LABS: Basophils # (Auto) 0.1 K/mm3 (0.0-0.1); Basophils % (Auto) 1.2 % (0.0-1.8); Eosinophils # (Auto) 0.1 K/mm3 (0.0-0.4); Eosinophils % (Auto) 0.8 % (0.0-4.3); Hematocrit 27.3 % (35.5-45.6); Hemoglobin 8.8 gm/dl (11.8-15.2); Lymphocytes # (Auto) 1.1 K/mm3 (1.2-5.4); Lymphocytes % (Auto) 9.5 % (13.4-35.0); Mean Corpuscular HGB Conc 32 % (32-34); Mean Corpuscular Volume 92 fl (84-94); Monocytes # (Auto) 1.2 K/mm3 (0.0-0.8); Monocytes % (Auto) 9.9 % (0.0-7.3); Platelet Count 173 K/mm3 (140-440); Red Blood Count 2.97 M/mm3 (3.65-5.03); Red Cell Distribution Width 16.1 % (13.2-15.2)
[2019-04-13 05:49] LABS: Albumin 2.5 g/dL (3.9-5); Calcium 10.6 mg/dL (8.4-10.2)
[2019-04-13] MEDS: METOPROLOL TARTRATE 5 MG/5 ML INJ IV SCH ×5 (06:00→23:06)
[2019-04-13] MEDS: BUMETANIDE 2.5 MG/10 ML VIAL IV SCH ×2 (06:06→17:53)
--- NOTE | 2019-04-13 07:11 | Hem/Onc Progress Note ---
Assessment and Plan 1. h/o Anemia. The patient has history of bleeding. 2. rt Internal jugular partial thrombosis. The patient was started on heparin. This has been held due to bleeding 3. Gastrointestinal bleed. 4. h/o Elevated creatinine kinase. 5. h/o Low calcium. 6. h/o Thrombocytopenia. 7. h/o Renal failure. 8. h/o Intubation. 9. s/p Transfusion support. 10. Leukocytosis. At this time, supportive care may help the patient. The patient's platelet was low at admission. Urine toxicology was negative. awake extubated dvt - off anticoagulation - due to bleeding platelet - > 100 s/p iv iron trial pt on BIPAP tachycardia - on meds - Patient Problems (1) DVT (deep venous thrombosis) Current Visit: Yes Status: Acute Subjective Date of service: 04/13/19 Principal diagnosis: anemia - DVT rt IJ Interval history: awake - on bipap Objective - Exam Narrative Exam: Pain - none now General appearance - awake BIPAP Performance status limited self care Eyes - no icterus ENT - extubated - BIPAP LNs cervical not palpable Neck - no LN Respiratory Normal Breath sounds - CTA anteriorly CVS S1 S2 + Extremities edema + General GI Soft Rectal deferred male - deferred Skin warm Musculoskeletal awake Neurologically awake - Constitutional Vitals: Last Vital Signs Temp 100.4 F H 04/13/19 03:32 Pulse 81 04/13/19 06:00 Resp 18 04/13/19 06:00 BP 140/80 04/13/19 06:00 Pulse Ox 100 04/13/19 06:00 - Labs Lab Results: Laboratory Results - last 24 hr 04/12/19 04/12/19 04/12/19 12:13 18: 23:52 WBC RBC Hgb Hct MCV MCH MCHC RDW Plt Count Lymph % (Auto) [place] % (Auto) Eos % (Auto) Baso % (Auto) Lymph # [place] # Eos # Baso # Seg Neutrophils % Seg Neutrophils # Sodium Potassium Chloride Carbon Dioxide Anion Gap BUN Creatinine Estimated GFR BUN/Creatinine Ratio Glucose POC Glucose 115 H 96 124 H Calcium Phosphorus Total Bilirubin AST ALT Alkaline Phosphatase Total Protein Albumin Albumin/Globulin Ratio 04/13/19 04/13/19 04/13/19 05:00 05:00 05:47 WBC 11.7 H RBC 2.97 L Hgb 8.8 L Hct 27.3 L MCV 92 MCH 30 MCHC 32 RDW 16.1 H Plt Count 173 Lymph % (Auto) 9.5 L [place] % (Auto) 9.9 H Eos % (Auto) 0.8 Baso % (Auto) 1.2 Lymph # 1.1 L [place] # 1.2 H Eos # 0.1 Baso # 0.1 Seg Neutrophils % 78.6 H Seg Neutrophils # 9.2 H Sodium 142 Potassium 3.5 L Chloride 101.5 Carbon Dioxide 28 Anion Gap 16 BUN 42 H Creatinine 4.6 H Estimated GFR 14 BUN/Creatinine Ratio 9 Glucose 106 H POC Glucose 107 H Calcium 10.6 H D Phosphorus 5.90 H Total Bilirubin 0.50 AST 21 ALT 13 Alkaline Phosphatase 52 Total Protein 5.8 L Albumin 2.5 L Albumin/Globulin Ratio 0.8 Medications & Allergies - Medications Allergies/Adverse Reactions: Allergies No Known Allergies Allergy (Unverified 03/16/19 17:17) Home Medications: Home Medications Medication Instructions Recorded Confirmed Last Taken Type Unobtainable 03/18/19 03/18/19 Unknown History Active Medications: Generic Name Dose Route Start Last Admin Trade Name Freq PRN Reason Stop Dose Admin Acetaminophen 650 mg 04/02/19 23:26 04/12/19 05:28 Tylenol PO 650 mg Q4H PRN Administration Pain, Mild (1-3),temp>100.5 Albuterol 2.5 mg 03/29/19 13:08 Proventil IH Q4HRT PRN Shortness Of Breath Amiodarone HCl 400 mg 04/11/19 10:45 04/12/19 21:00 Cordarone PO 400 mg TID PAOLO Administration Bacitracin 1 applic 04/09/19 02:43 04/11/19 00:20 Antibiotic Oint TP 1 applic PRN PRN Administration upper lip sore/open Bumetanide 2 mg 04/10/19 18:00 04/13/19 06:06 Bumex IV 2 mg BID@0600,1800 PAOLO Administration Calcium Acetate 1,334 mg 03/31/19 14:00 04/12/19 21:00 Phoslo PO 1,334 mg TID PAOLO Administration Dextrose 50 gm 03/19/19 18:39 03/26/19 23:26 D50w (25gm) Vial IV 50 gm PRN PRN Administration Hypoglycemia Epoetin Jet 20,000 unit 03/31/19 10:15 04/06/19 10:41 Procrit SUB-Q 20,000 unit NEYMAR PRN Administration hemodialysis Hydrophilic Ointment 1 applic 03/16/19 15:50 Vaseline Lip Therapy TP Q2HR PRN Dry Lips Sodium Chloride 100 mls @ 999 mls/hr 04/09/19 07:02 Nacl 0.9% IV NEYMAR PRN Hypotension Sodium Chloride 100 mls @ 999 mls/hr 04/11/19 10:50 Nacl 0.9% IV NEYMAR PRN Hypotension Cefepime HCl 2 gm in 100 mls @ 200 mls/hr 04/11/19 18:00 04/12/19 18:03 Maxipime/Ns 2 Gm/100 Ml IV 200 mls/hr QPM PAOLO Administration Protocol Lansoprazole 30 mg 04/11/19 10:00 04/12/19 22:17 Prevacid Solutab FEEDTUBE 30 mg BID PAOLO Administration Metoprolol Tartrate 5 mg 04/11/19 11:00 04/13/19 06:00 Lopressor IV 5 mg Q6H PAOLO Administration Multi-Ingred Cream/Lotion/Oil/Oint 1 applic 03/16/19 15:50 03/19/19 20:10 Artificial Tears Ophth Oint OU 1 applic Q4HR PRN Administration Dry Eye(s) Ondansetron HCl 4 mg 03/16/19 22:21 04/11/19 20:49 Zofran IV 4 mg Q8H PRN Administration Nausea And Vomiting Paricalcitol 2 mcg 03/30/19 10:00 04/12/19 10:11 Zemplar IV 2 mcg DAILY PAOLO Administration
[2019-04-13] MEDS ORDERED: SODIUM CHLORIDE 0.9% 100 ML IV PRN (08:30)
[2019-04-13] MEDS: CALCIUM ACETATE 667 MG CAP PO SCH ×3 (08:33→19:58)
[2019-04-13] MEDS: AMIODARONE 200 MG TAB PO SCH ×3 (08:33→19:58)
[2019-04-13] MEDS: PARICALCITOL 2 MCG/1 ML INJ IV SCH (10:27)
[2019-04-13] MEDS: LANSOPRAZOLE 30 MG SOLUTAB FEEDTUBE SCH ×2 (10:27→22:15)
[2019-04-13] MEDS: ACETAMINOPHEN 325 MG TAB PO PRN ×2 (10:47→22:12)
--- NOTE | 2019-04-13 10:59 | Progress Note ---
Assessment and Plan Severe sepsis with shock. Right axilla abscess versus localized pannus/fatty collection. Acute hypoxemic respiratory failure, on mechanical ventilator support. Likely aspiration pneumonia, bilateral. Morbid obesity. Rhabdomyolysis. Acute kidney injury. Leukocytosis. Morbid obesity. Metabolic acidosis. Lactic acidosis. Hypomagnesemia. Elevated serum transaminases/possible shock liver. Acute encephalopathy, toxic metabolic versus anoxic (Discussed Code status with him with RN in room and he very emphatically wants to be a FULL CODE) - continue BIPAP scheduled qhs - outpatient PSG - aggressive PT/OT as tolerated - advance tube feeds to goal rate as tolerated - ST evaluation ongoing - continue prn albuterol treatments - continue to wean FiO2 for sats > 90% - continue oral amiodarone for A-fib - continue HD/UF per nephrology prescription for toxin and volume control - prn supportive blood transfusions to keep serum Hb > 7.0 - Monitor hemodynamics closely - Transfuse PRBC's to keep HgB > 7g/dL - continue empiric broad spectrum antiinfective's per ID recommendations (de- escalate based on clinical and microbiologic data) - continue mobility protocols and off loading as tolerated for pressure ulcer prophylaxis - continue to avoid nephrotoxins, adjust all medications for GFR and CRCL - continue GI & VTE prophylaxis with - accuchecks with glycemic control per SSI for target BG of 140-180 mg/dl acutely - continue other care per attending / other consultants ... re-evaluate in am & prn CONDITION: IMPROVED PROGNOSIS: FAIR CODE STATUS: FULL CODE Subjective Date of service: 04/13/19 Principal diagnosis: Septic Shock; Ac. hypoxemic resp failure; Renzo. PNA; Rhabdomyolysis; RUBEN Interval history: Patient is seen today for: Severe sepsis with shock; Acute hypoxemic respiratory failure; Aspiration pneumonia; Morbid obesity; Rhabdomyolysis; Acute kidney injury; Morbid obesity; Elevated serum transaminases/possible shock liver; Acute encephalopathy (Toxic/Met) Seen and examined at bedside; 24hour events reviewed; nursing and respiratory care staff consulted; no adverse overnight events reported to me; resting peacefully in bed; A-fib now rate controlled; tolerating QHS BIPAP very well; denies acute chest pains or palpitations; remains very weak Objective Vital Signs - 12hr 04/12/19 04/12/19 04/12/19 23:00 23:15 23:37 Temperature 98.9 F Pulse Rate 82 83 Pulse Rate [ From Monitor] Respiratory 14 Rate Blood Pressure 163/93 163/93 O2 Sat by Pulse Oximetry 04/12/19 04/13/19 04/13/19 23:46 00:00 01:00 Temperature Pulse Rate 77 77 77 Pulse Rate [ 77 From Monitor] Respiratory 16 16 15 Rate Blood Pressure 153/90 162/92 162/93 O2 Sat by Pulse 96 Oximetry 04/13/19 04/13/19 04/13/19 02:00 03:00 03:32 Temperature 100.4 F H Pulse Rate 79 77 Pulse Rate [ 78 From Monitor] Respiratory 15 15 Rate Blood Pressure 162/93 159/92 O2 Sat by Pulse 96 Oximetry 04/13/19 04/13/19 04/13/19 04:00 04:30 05:00 Temperature Pulse Rate 77 84 84 Pulse Rate [ 77 From Monitor] Respiratory 14 16 16 Rate Blood Pressure 165/92 165/92 165/92 O2 Sat by Pulse 96 100 100 Oximetry 04/13/19 04/13/19 06:00 10:30 Temperature Pulse Rate 81 86 Pulse Rate [ From Monitor] Respiratory 18 Rate Blood Pressure 140/80 151/76 O2 Sat by Pulse 100 Oximetry Constitutional: no acute distress, other (middle aged morbidly obese CM, normocephalic with incresed respiratory effort at rest) Eyes: icteric ENT: oropharynx moist, other (extubated) Neck: supple, no lymphadenopathy, no JVD, other (large neck circumference) Effort: mildly labored Ascultation: Bilateral: diminished breath sounds, rhonchi (scant) Percussion: Bilateral: not dull Cardiovascular: irregular rhythm, other ( S1,S2) Gastrointestinal: hypoactive bowel sounds, soft, non-tender, non-distended, other (obese) Integumentary: normal, other (blisters with some weeping over the extremities) Extremities: no cyanosis, pink and warm, pulses normal, no ischemia or petechiae Neurologic: normal mental status, non-focal exam (grossly), pupils equal and round, CN II-XII normal, other (very weak) Psychiatric: mood appropriate, affect normal CBC and BMP: 04/13/19 05:00 04/14/19 03:55 ABG, PT/INR, D-dimer: ABG POC ABG pH 7.401 (7.35-7.45) 04/07/19 12:57 ABG pH 7.388 pH Units (7.350-7.450) 04/06/19 05:20 POC ABG pCO2 41.5 (35-45) 04/07/19 12:57 ABG pCO2 38.5 mm Hg 04/06/19 05:20 POC ABG pO2 107 (80-105) H 04/07/19 12:57 ABG pO2 104.0 mm Hg (80.0-90.0) H 04/06/19 05:20 POC ABG HCO3 25.7 (22-26 mml/L) 04/07/19 12:57 POC ABG Total CO2 27 (23-27mmol/L) 04/07/19 12:57 POC ABG O2 Sat 98 04/07/19 12:57 ABG O2 Saturation 97.8 % (95.0-99.0) 04/06/19 05:20 PT/INR, D-dimer PT 15.3 Sec. (12.2-14.9) H 03/29/19 11:48 INR 1.24 (0.87-1.13) H 03/29/19 11:48 D-Dimer 4845.98 ng/mlDDU (0-234) H 03/28/19 12:00 Abnormal lab findings: Abnormal Labs 03/16/19 03/16/19 03/16/19 15:32 16:03 16:05 WBC 27.0 H RBC 5.55 H Hgb 15.7 H Hct 47.1 H MCV RDW Plt Count 75 L Lymph % (Auto) [place] % (Auto) Lymph # [place] # Seg Neutrophils % Seg Neuts % (Manual) 85.0 H Lymphocytes % (Manual) 2.0 L Monocytes % (Manual) Nucleated RBC % Seg Neutrophils # Seg Neutrophils # Man 23.0 H Lymphocytes # (Manual) 0.5 L Monocytes # (Manual) PT INR D-Dimer Heparin Anti-Xa Level POC ABG pH ABG pH POC ABG pCO2 POC ABG pO2 ABG pO2 ABG HCO3 ABG O2 Saturation ABG Base Excess ABG Hemoglobin Oxyhemoglobin Sodium 127 L Potassium Chloride 87.8 L Carbon Dioxide 17 L BUN 49 H Creatinine 5.8 H Glucose 150 H POC Glucose 118 H Lactic Acid Calcium 6.6 L Ionized Calcium Phosphorus Magnesium 1.10 L Iron TIBC Ferritin Total Bilirubin Direct Bilirubin AST ALT Alkaline Phosphatase Total Creatine Kinase 13723 H CK-MB (CK-2) Troponin T C-Reactive Protein Total Protein Albumin Triglycerides LDL Cholesterol Direct HDL Cholesterol Free T4 PTH Intact Urine WBC (Auto) Urine Creatinine Salicylates Acetaminophen Crossmatch 03/16/19 03/16/19 03/16/19 16:59 17:05 17:05 WBC RBC Hgb Hct MCV RDW Plt Count Lymph % (Auto) [place] % (Auto) Lymph # [place] # Seg Neutrophils % Seg Neuts % (Manual) Lymphocytes % (Manual) Monocytes % (Manual) Nucleated RBC % Seg Neutrophils # Seg Neutrophils # Man Lymphocytes # (Manual) Monocytes # (Manual) PT INR D-Dimer Heparin Anti-Xa Level POC ABG pH 7.297 L ABG pH POC ABG pCO2 33.0 L POC ABG pO2 ABG pO2 ABG HCO3 ABG O2 Saturation ABG Base Excess ABG Hemoglobin Oxyhemoglobin Sodium Potassium Chloride Carbon Dioxide BUN Creatinine Glucose POC Glucose Lactic Acid Calcium Ionized Calcium Phosphorus Magnesium Iron TIBC Ferritin Total Bilirubin Direct Bilirubin AST ALT Alkaline Phosphatase Total Creatine Kinase 01935 H CK-MB (CK-2) 83.1 H Troponin T C-Reactive Protein Total Protein Albumin Triglycerides LDL Cholesterol Direct HDL Cholesterol Free T4 0.72 L PTH Intact Urine WBC (Auto) Urine Creatinine Salicylates Acetaminophen Crossmatch 03/16/19 03/16/19 03/16/19 17:05 17:05 17:05 WBC RBC Hgb Hct MCV RDW Plt Count Lymph % (Auto) [place] % (Auto) Lymph # [place] # Seg Neutrophils % Seg Neuts % (Manual) Lymphocytes % (Manual) Monocytes % (Manual) Nucleated RBC % Seg Neutrophils # Seg Neutrophils # Man Lymphocytes # (Manual) Monocytes # (Manual) PT INR D-Dimer Heparin Anti-Xa Level POC ABG pH ABG pH POC ABG pCO2 POC ABG pO2 ABG pO2 ABG HCO3 ABG O2 Saturation ABG Base Excess ABG Hemoglobin Oxyhemoglobin Sodium Potassium Chloride Carbon Dioxide BUN Creatinine Glucose POC Glucose Lactic Acid 5.10 H* Calcium Ionized Calcium Phosphorus Magnesium Iron TIBC Ferritin Total Bilirubin Direct Bilirubin AST ALT Alkaline Phosphatase Total Creatine Kinase CK-MB (CK-2) Troponin T C-Reactive Protein Total Protein Albumin Triglycerides LDL Cholesterol Direct HDL Cholesterol Free T4 PTH Intact Urine WBC (Auto) Urine Creatinine Salicylates < 0.3 L Acetaminophen < 5.0 L Crossmatch 03/16/19 03/16/19 03/16/19 17:05 17:05 20:35 WBC RBC Hgb Hct MCV RDW Plt Count Lymph % (Auto) [place] % (Auto) Lymph # [place] # Seg Neutrophils % Seg Neuts % (Manual) Lymphocytes % (Manual) Monocytes % (Manual) Nucleated RBC % Seg Neutrophils # Seg Neutrophils # Man Lymphocytes # (Manual) Monocytes # (Manual) PT 15.9 H INR 1.30 H D-Dimer Heparin Anti-Xa Level POC ABG pH ABG pH POC ABG pCO2 POC ABG pO2 ABG pO2 ABG HCO3 ABG O2 Saturation ABG Base Excess ABG Hemoglobin Oxyhemoglobin Sodium Potassium Chloride Carbon Dioxide BUN Creatinine Glucose POC Glucose Lactic Acid 3.30 H* Calcium Ionized Calcium Phosphorus Magnesium Iron TIBC Ferritin Total Bilirubin 6.20 H Direct Bilirubin 5.9 H AST 800 H ALT 120 H Alkaline Phosphatase Total Creatine Kinase CK-MB (CK-2) Troponin T C-Reactive Protein Total Protein 4.4 L Albumin 2.4 L Triglycerides LDL Cholesterol Direct HDL Cholesterol Free T4 PTH Intact Urine WBC (Auto) Urine Creatinine Salicylates Acetaminophen Crossmatch 03/16/19 03/16/19 03/16/19 21:45 22:32 Unknown WBC RBC Hgb Hct MCV RDW Plt Count Lymph % (Auto) [place] % (Auto) Lymph # [place] # Seg Neutrophils % Seg Neuts % (Manual) Lymphocytes % (Manual) Monocytes % (Manual) Nucleated RBC % Seg Neutrophils # Seg Neutrophils # Man Lymphocytes # (Manual) Monocytes # (Manual) PT INR D-Dimer Heparin Anti-Xa Level POC ABG pH ABG pH POC ABG pCO2 POC ABG pO2 ABG pO2 ABG HCO3 ABG O2 Saturation ABG Base Excess ABG Hemoglobin Oxyhemoglobin Sodium Potassium Chloride Carbon Dioxide BUN Creatinine Glucose POC Glucose Lactic Acid 3.30 H* 3.00 H* Calcium Ionized Calcium Phosphorus Magnesium Iron TIBC Ferritin Total Bilirubin Direct Bilirubin AST ALT Alkaline Phosphatase Total Creatine Kinase CK-MB (CK-2) Troponin T 0.047 H D C-Reactive Protein Total Protein Albumin Triglycerides 395 H LDL Cholesterol Direct 10 L HDL Cholesterol 7 L Free T4 PTH Intact Urine WBC (Auto) Urine Creatinine Salicylates Acetaminophen Crossmatch 03/17/19 03/17/19 03/17/19 03:45 03:45 03:45 WBC RBC Hgb Hct MCV RDW Plt Count Lymph % (Auto) [place] % (Auto) Lymph # [place] # Seg Neutrophils % Seg Neuts % (Manual) Lymphocytes % (Manual) Monocytes % (Manual) Nucleated RBC % Seg Neutrophils # Seg Neutrophils # Man Lymphocytes # (Manual) Monocytes # (Manual) PT INR D-Dimer Heparin Anti-Xa Level POC ABG pH ABG pH POC ABG pCO2 POC ABG pO2 ABG pO2 ABG HCO3 ABG O2 Saturation ABG Base Excess ABG Hemoglobin Oxyhemoglobin Sodium 131 L Potassium Chloride 88.9 L Carbon Dioxide BUN 53 H Creatinine 7.1 H Glucose POC Glucose Lactic Acid 4.10 H* Calcium 5.4 L* D Ionized Calcium Phosphorus 7.30 H Magnesium 1.60 L Iron TIBC Ferritin Total Bilirubin 5.90 H Direct Bilirubin AST 801 H ALT 109 H Alkaline Phosphatase Total Creatine Kinase 77959 H 45893 H CK-MB (CK-2) 41.5 H Troponin T 0.054 H C-Reactive Protein Total Protein 4.5 L Albumin 2.0 L Triglycerides LDL Cholesterol Direct HDL Cholesterol Free T4 PTH Intact Urine WBC (Auto) Urine Creatinine Salicylates Acetaminophen Crossmatch 03/17/19 03/17/19 03/17/19 05:47 07:16 07:16 WBC RBC Hgb Hct MCV RDW Plt Count Lymph % (Auto) [place] % (Auto) Lymph # [place] # Seg Neutrophils % Seg Neuts % (Manual) Lymphocytes % (Manual) Monocytes % (Manual) Nucleated RBC % Seg Neutrophils # Seg Neutrophils # Man Lymphocytes # (Manual) Monocytes # (Manual) PT INR D-Dimer Heparin Anti-Xa Level POC ABG pH 7.193 L ABG pH POC ABG pCO2 45.2 H POC ABG pO2 65 L ABG pO2 ABG HCO3 ABG O2 Saturation ABG Base Excess ABG Hemoglobin Oxyhemoglobin Sodium Potassium Chloride Carbon Dioxide BUN Creatinine Glucose POC Glucose Lactic Acid 5.50 H* Calcium Ionized Calcium Phosphorus Magnesium Iron TIBC Ferritin Total Bilirubin Direct Bilirubin AST ALT Alkaline Phosphatase Total Creatine Kinase 24552 H CK-MB (CK-2) 54.3 H Troponin T 0.058 H C-Reactive Protein Total Protein Albumin Triglycerides LDL Cholesterol Direct HDL Cholesterol Free T4 PTH Intact Urine WBC (Auto) Urine Creatinine Salicylates Acetaminophen Crossmatch 03/17/19 03/17/19 03/17/19 11:52 12:51 13:01 WBC RBC Hgb Hct MCV RDW Plt Count Lymph % (Auto) [place] % (Auto) Lymph # [place] # Seg Neutrophils % Seg Neuts % (Manual) Lymphocytes % (Manual) Monocytes % (Manual) Nucleated RBC % Seg Neutrophils # Seg Neutrophils # Man Lymphocytes # (Manual) Monocytes # (Manual) PT INR D-Dimer Heparin Anti-Xa Level POC ABG pH 7.154 L ABG pH POC ABG pCO2 34.3 L POC ABG pO2 73 L ABG pO2 ABG HCO3 ABG O2 Saturation ABG Base Excess ABG Hemoglobin Oxyhemoglobin Sodium Potassium Chloride Carbon Dioxide BUN Creatinine Glucose POC Glucose 60 L Lactic Acid 8.20 H* Calcium Ionized Calcium Phosphorus Magnesium Iron TIBC Ferritin Total Bilirubin Direct Bilirubin AST ALT Alkaline Phosphatase Total Creatine Kinase CK-MB (CK-2) Troponin T C-Reactive Protein Total Protein Albumin Triglycerides LDL Cholesterol Direct HDL Cholesterol Free T4 PTH Intact Urine WBC (Auto) Urine Creatinine Salicylates Acetaminophen Crossmatch 03/17/19 03/17/19 03/17/19 14:37 14:37 14:37 WBC 29.3 H RBC Hgb Hct MCV RDW 15.8 H Plt Count 45 L Lymph % (Auto) [place] % (Auto) Lymph # [place] # Seg Neutrophils % Seg Neuts % (Manual) 81.0 H Lymphocytes % (Manual) 1.0 L Monocytes % (Manual) 15.0 H Nucleated RBC % Seg Neutrophils # Seg Neutrophils # Man 23.7 H Lymphocytes # (Manual) 0.3 L Monocytes # (Manual) 4.4 H PT INR D-Dimer Heparin Anti-Xa Level POC ABG pH ABG pH POC ABG pCO2 POC ABG pO2 ABG pO2 ABG HCO3 ABG O2 Saturation ABG Base Excess ABG Hemoglobin Oxyhemoglobin Sodium Potassium Chloride Carbon Dioxide BUN Creatinine Glucose POC Glucose Lactic Acid 4.90 H* Calcium Ionized Calcium Phosphorus Magnesium Iron TIBC Ferritin Total Bilirubin Direct Bilirubin AST ALT Alkaline Phosphatase Total Creatine Kinase CK-MB (CK-2) Troponin T C-Reactive Protein 24.90 H Total Protein Albumin Triglycerides LDL Cholesterol Direct HDL Cholesterol Free T4 PTH Intact Urine WBC (Auto) Urine Creatinine Salicylates Acetaminophen Crossmatch 03/17/19 03/17/19 03/17/19 16:05 16:05 17:02 WBC RBC Hgb Hct MCV RDW Plt Count Lymph % (Auto) [place] % (Auto) Lymph # [place] # Seg Neutrophils % Seg Neuts % (Manual) Lymphocytes % (Manual) Monocytes % (Manual) Nucleated RBC % Seg Neutrophils # Seg Neutrophils # Man Lymphocytes # (Manual) Monocytes # (Manual) PT INR D-Dimer Heparin Anti-Xa Level POC ABG pH 7.183 L ABG pH POC ABG pCO2 POC ABG pO2 65 L ABG pO2 ABG HCO3 ABG O2 Saturation ABG Base Excess ABG Hemoglobin Oxyhemoglobin Sodium Potassium Chloride Carbon Dioxide BUN Creatinine Glucose POC Glucose Lactic Acid Calcium Ionized Calcium Phosphorus Magnesium Iron TIBC Ferritin Total Bilirubin Direct Bilirubin AST ALT Alkaline Phosphatase Total Creatine Kinase CK-MB (CK-2) Troponin T C-Reactive Protein Total Protein Albumin Triglycerides LDL Cholesterol Direct HDL Cholesterol Free T4 PTH Intact Urine WBC (Auto) 30.0 H Urine Creatinine 106.6 H Salicylates Acetaminophen Crossmatch 03/18/19 03/18/19 03/18/19 05:12 05:16 05:53 WBC RBC Hgb Hct MCV RDW Plt Count Lymph % (Auto) [place] % (Auto) Lymph # [place] # Seg Neutrophils % Seg Neuts % (Manual) Lymphocytes % (Manual) Monocytes % (Manual) Nucleated RBC % Seg Neutrophils # Seg Neutrophils # Man Lymphocytes # (Manual) Monocytes # (Manual) PT INR D-Dimer Heparin Anti-Xa Level POC ABG pH 7.257 L ABG pH POC ABG pCO2 31.6 L POC ABG pO2 69 L ABG pO2 ABG HCO3 ABG O2 Saturation ABG Base Excess ABG Hemoglobin Oxyhemoglobin Sodium Potassium Chloride Carbon Dioxide BUN Creatinine Glucose POC Glucose 141 H Lactic Acid 5.00 H* Calcium Ionized Calcium Phosphorus Magnesium Iron TIBC Ferritin Total Bilirubin Direct Bilirubin AST ALT Alkaline Phosphatase Total Creatine Kinase CK-MB (CK-2) Troponin T C-Reactive Protein Total Protein Albumin Triglycerides LDL Cholesterol Direct HDL Cholesterol Free T4 PTH Intact Urine WBC (Auto) Urine Creatinine Salicylates Acetaminophen Crossmatch 03/18/19 03/18/19 03/18/19 06:57 08:40 08:40 WBC 31.7 H RBC Hgb Hct MCV RDW 15.5 H Plt Count 35 L Lymph % (Auto) [place] % (Auto) Lymph # [place] # Seg Neutrophils % Seg Neuts % (Manual) Lymphocytes % (Manual) Monocytes % (Manual) Nucleated RBC % Seg Neutrophils # Seg Neutrophils # Man Lymphocytes # (Manual) Monocytes # (Manual) PT INR D-Dimer Heparin Anti-Xa Level POC ABG pH ABG pH POC ABG pCO2 POC ABG pO2 ABG pO2 ABG HCO3 ABG O2 Saturation ABG Base Excess ABG Hemoglobin Oxyhemoglobin Sodium 132 L Potassium 5.5 H D Chloride 88.5 L Carbon Dioxide 18 L BUN 71 H Creatinine 8.1 H Glucose 205 H POC Glucose Lactic Acid 5.00 H* Calcium 4.1 L* D Ionized Calcium Phosphorus Magnesium 2.40 H Iron TIBC Ferritin Total Bilirubin 7.50 H Direct Bilirubin AST 1088 H ALT 159 H Alkaline Phosphatase 190 H Total Creatine Kinase 824894 H CK-MB (CK-2) Troponin T C-Reactive Protein Total Protein 4.7 L Albumin 1.8 L Triglycerides LDL Cholesterol Direct HDL Cholesterol Free T4 PTH Intact Urine WBC (Auto) Urine Creatinine Salicylates Acetaminophen Crossmatch 03/18/19 03/18/19 03/18/19 12:33 12:50 13:19 WBC RBC Hgb Hct MCV RDW Plt Count Lymph % (Auto) [place] % (Auto) Lymph # [place] # Seg Neutrophils % Seg Neuts % (Manual) Lymphocytes % (Manual) Monocytes % (Manual) Nucleated RBC % Seg Neutrophils # Seg Neutrophils # Man Lymphocytes # (Manual) Monocytes # (Manual) PT INR D-Dimer Heparin Anti-Xa Level POC ABG pH 7.282 L ABG pH POC ABG pCO2 POC ABG pO2 67 L ABG pO2 ABG HCO3 ABG O2 Saturation ABG Base Excess ABG Hemoglobin Oxyhemoglobin Sodium Potassium Chloride Carbon Dioxide BUN Creatinine Glucose POC Glucose 129 H Lactic Acid 3.30 H* Calcium Ionized Calcium Phosphorus Magnesium Iron TIBC Ferritin Total Bilirubin Direct Bilirubin AST ALT Alkaline Phosphatase Total Creatine Kinase CK-MB (CK-2) Troponin T C-Reactive Protein Total Protein Albumin Triglycerides LDL Cholesterol Direct HDL Cholesterol Free T4 PTH Intact Urine WBC (Auto) Urine Creatinine Salicylates Acetaminophen Crossmatch 03/18/19 03/18/19 03/18/19 13:19 16:50 18:11 WBC RBC Hgb Hct MCV RDW Plt Count Lymph % (Auto) [place] % (Auto) Lymph # [place] # Seg Neutrophils % Seg Neuts % (Manual) Lymphocytes % (Manual) Monocytes % (Manual) Nucleated RBC % Seg Neutrophils # Seg Neutrophils # Man Lymphocytes # (Manual) Monocytes # (Manual) PT INR D-Dimer Heparin Anti-Xa Level POC ABG pH ABG pH POC ABG pCO2 POC ABG pO2 59 L ABG pO2 ABG HCO3 ABG O2 Saturation ABG Base Excess ABG Hemoglobin Oxyhemoglobin Sodium Potassium Chloride Carbon Dioxide BUN Creatinine Glucose POC Glucose 151 H Lactic Acid Calcium 4.2 L* Ionized Calcium Phosphorus Magnesium Iron TIBC Ferritin Total Bilirubin Direct Bilirubin AST ALT Alkaline Phosphatase Total Creatine Kinase 343496 H CK-MB (CK-2) Troponin T C-Reactive Protein Total Protein Albumin Triglycerides LDL Cholesterol Direct HDL Cholesterol Free T4 PTH Intact Urine WBC (Auto) Urine Creatinine Salicylates Acetaminophen Crossmatch 03/18/19 03/18/19 03/19/19 18:20 23:39 01:42 WBC RBC Hgb Hct MCV RDW Plt Count Lymph % (Auto) [place] % (Auto) Lymph # [place] # Seg Neutrophils % Seg Neuts % (Manual) Lymphocytes % (Manual) Monocytes % (Manual) Nucleated RBC % Seg Neutrophils # Seg Neutrophils # Man Lymphocytes # (Manual) Monocytes # (Manual) PT INR D-Dimer Heparin Anti-Xa Level POC ABG pH 7.345 L ABG pH 7.285 L POC ABG pCO2 POC ABG pO2 59 L ABG pO2 44.0 L ABG HCO3 ABG O2 Saturation 70.9 L ABG Base Excess -5.7 L ABG Hemoglobin 11.9 L Oxyhemoglobin 69.6 L Sodium Potassium Chloride Carbon Dioxide BUN Creatinine Glucose POC Glucose 152 H Lactic Acid Calcium Ionized Calcium Phosphorus Magnesium Iron TIBC Ferritin Total Bilirubin Direct Bilirubin AST ALT Alkaline Phosphatase Total Creatine Kinase CK-MB (CK-2) Troponin T C-Reactive Protein Total Protein Albumin Triglycerides LDL Cholesterol Direct HDL Cholesterol Free T4 PTH Intact Urine WBC (Auto) Urine Creatinine Salicylates Acetaminophen Crossmatch 03/19/19 03/19/19 03/19/19 04:00 04:00 05:35 WBC 36.5 H RBC Hgb Hct MCV RDW 15.8 H Plt Count 35 L Lymph % (Auto) [place] % (Auto) Lymph # [place] # Seg Neutrophils % Seg Neuts % (Manual) Lymphocytes % (Manual) Monocytes % (Manual) Nucleated RBC % Seg Neutrophils # Seg Neutrophils # Man Lymphocytes # (Manual) Monocytes # (Manual) PT INR D-Dimer Heparin Anti-Xa Level POC ABG pH ABG pH 7.265 L POC ABG pCO2 POC ABG pO2 ABG pO2 35.4 L* ABG HCO3 ABG O2 Saturation 54.4 L ABG Base Excess -6.7 L ABG Hemoglobin 12.9 L Oxyhemoglobin 53.4 L Sodium 132 L Potassium 5.7 H Chloride 89.8 L Carbon Dioxide 19 L BUN 62 H Creatinine 6.4 H Glucose 151 H POC Glucose Lactic Acid Calcium 5.2 L* D Ionized Calcium Phosphorus Magnesium Iron TIBC Ferritin Total Bilirubin 7.80 H Direct Bilirubin AST 682 H ALT 130 H Alkaline Phosphatase 167 H Total Creatine Kinase CK-MB (CK-2) Troponin T C-Reactive Protein Total Protein 4.8 L Albumin 2.3 L Triglycerides LDL Cholesterol Direct HDL Cholesterol Free T4 PTH Intact Urine WBC (Auto) Urine Creatinine Salicylates Acetaminophen Crossmatch 03/19/19 03/19/19 03/19/19 05:49 09:16 09:50 WBC RBC Hgb Hct MCV RDW Plt Count Lymph % (Auto) [place] % (Auto) Lymph # [place] # Seg Neutrophils % Seg Neuts % (Manual) Lymphocytes % (Manual) Monocytes % (Manual) Nucleated RBC % Seg Neutrophils # Seg Neutrophils # Man Lymphocytes # (Manual) Monocytes # (Manual) PT INR D-Dimer Heparin Anti-Xa Level POC ABG pH 7.222 L ABG pH POC ABG pCO2 56.6 H POC ABG pO2 ABG pO2 ABG HCO3 ABG O2 Saturation ABG Base Excess ABG Hemoglobin Oxyhemoglobin Sodium Potassium Chloride Carbon Dioxide BUN Creatinine Glucose POC Glucose 154 H Lactic Acid 2.70 H* Calcium Ionized Calcium Phosphorus Magnesium Iron TIBC Ferritin Total Bilirubin Direct Bilirubin AST ALT Alkaline Phosphatase Total Creatine Kinase CK-MB (CK-2) Troponin T C-Reactive Protein Total Protein Albumin Triglycerides LDL Cholesterol Direct HDL Cholesterol Free T4 PTH Intact Urine WBC (Auto) Urine Creatinine Salicylates Acetaminophen Crossmatch 03/19/19 03/19/19 03/19/19 09:50 11:28 17:58 WBC RBC Hgb Hct MCV RDW Plt Count Lymph % (Auto) [place] % (Auto) Lymph # [place] # Seg Neutrophils % Seg Neuts % (Manual) Lymphocytes % (Manual) Monocytes % (Manual) Nucleated RBC % Seg Neutrophils # Seg Neutrophils # Man Lymphocytes # (Manual) Monocytes # (Manual) PT INR D-Dimer Heparin Anti-Xa Level POC ABG pH 7.250 L ABG pH POC ABG pCO2 52.6 H POC ABG pO2 ABG pO2 ABG HCO3 ABG O2 Saturation ABG Base Excess ABG Hemoglobin Oxyhemoglobin Sodium Potassium Chloride Carbon Dioxide BUN Creatinine Glucose POC Glucose 160 H Lactic Acid Calcium Ionized Calcium Phosphorus Magnesium Iron TIBC Ferritin Total Bilirubin Direct Bilirubin AST ALT Alkaline Phosphatase Total Creatine Kinase 13958 H CK-MB (CK-2) Troponin T C-Reactive Protein Total Protein Albumin Triglycerides LDL Cholesterol Direct HDL Cholesterol Free T4 PTH Intact Urine WBC (Auto) Urine Creatinine Salicylates Acetaminophen Crossmatch 03/19/19 03/19/19 03/20/19 19:48 21:03 02:16 WBC RBC Hgb Hct MCV RDW Plt Count Lymph % (Auto) [place] % (Auto) Lymph # [place] # Seg Neutrophils % Seg Neuts % (Manual) Lymphocytes % (Manual) Monocytes % (Manual) Nucleated RBC % Seg Neutrophils # Seg Neutrophils # Man Lymphocytes # (Manual) Monocytes # (Manual) PT INR D-Dimer Heparin Anti-Xa Level POC ABG pH 7.279 L ABG pH POC ABG pCO2 50.3 H POC ABG pO2 129 H ABG pO2 ABG HCO3 ABG O2 Saturation ABG Base Excess ABG Hemoglobin Oxyhemoglobin Sodium Potassium Chloride Carbon Dioxide BUN Creatinine Glucose POC Glucose 119 H 119 H Lactic Acid Calcium Ionized Calcium Phosphorus Magnesium Iron TIBC Ferritin Total Bilirubin Direct Bilirubin AST ALT Alkaline Phosphatase Total Creatine Kinase CK-MB (CK-2) Troponin T C-Reactive Protein Total Protein Albumin Triglycerides LDL Cholesterol Direct HDL Cholesterol Free T4 PTH Intact Urine WBC (Auto) Urine Creatinine Salicylates Acetaminophen Crossmatch 03/20/19 03/20/19 03/20/19 04:23 05:05 09:30 WBC 36.3 H RBC Hgb Hct MCV RDW 15.5 H Plt Count 29 L Lymph % (Auto) [place] % (Auto) Lymph # [place] # Seg Neutrophils % Seg Neuts % (Manual) Lymphocytes % (Manual) Monocytes % (Manual) Nucleated RBC % Seg Neutrophils # Seg Neutrophils # Man Lymphocytes # (Manual) Monocytes # (Manual) PT INR D-Dimer Heparin Anti-Xa Level POC ABG pH ABG pH POC ABG pCO2 POC ABG pO2 280 H ABG pO2 ABG HCO3 ABG O2 Saturation ABG Base Excess ABG Hemoglobin Oxyhemoglobin Sodium Potassium Chloride Carbon Dioxide BUN Creatinine Glucose POC Glucose 115 H Lactic Acid Calcium Ionized Calcium Phosphorus Magnesium Iron TIBC Ferritin Total Bilirubin Direct Bilirubin AST ALT Alkaline Phosphatase Total Creatine Kinase CK-MB (CK-2) Troponin T C-Reactive Protein Total Protein Albumin Triglycerides LDL Cholesterol Direct HDL Cholesterol Free T4 PTH Intact Urine WBC (Auto) Urine Creatinine Salicylates Acetaminophen Crossmatch 03/20/19 03/20/19 03/20/19 09:30 09:30 11:34 WBC RBC Hgb Hct MCV RDW Plt Count Lymph % (Auto) [place] % (Auto) Lymph # [place] # Seg Neutrophils % Seg Neuts % (Manual) Lymphocytes % (Manual) Monocytes % (Manual) Nucleated RBC % Seg Neutrophils # Seg Neutrophils # Man Lymphocytes # (Manual) Monocytes # (Manual) PT INR D-Dimer Heparin Anti-Xa Level POC ABG pH ABG pH POC ABG pCO2 POC ABG pO2 ABG pO2 ABG HCO3 ABG O2 Saturation ABG Base Excess ABG Hemoglobin Oxyhemoglobin Sodium 131 L Potassium Chloride 92.3 L Carbon Dioxide 20 L BUN 68 H Creatinine 6.1 H Glucose 164 H POC Glucose 141 H Lactic Acid Calcium 5.3 L* Ionized Calcium Phosphorus Magnesium Iron TIBC Ferritin Total Bilirubin 9.50 H Direct Bilirubin AST 381 H ALT 116 H Alkaline Phosphatase 255 H Total Creatine Kinase 73149 H CK-MB (CK-2) Troponin T C-Reactive Protein Total Protein 5.1 L Albumin 2.3 L Triglycerides LDL Cholesterol Direct HDL Cholesterol Free T4 PTH Intact Urine WBC (Auto) Urine Creatinine Salicylates Acetaminophen Crossmatch 03/20/19 03/20/19 03/20/19 14:41 14:45 18:50 WBC RBC Hgb Hct MCV RDW Plt Count Lymph % (Auto) [place] % (Auto) Lymph # [place] # Seg Neutrophils % Seg Neuts % (Manual) Lymphocytes % (Manual) Monocytes % (Manual) Nucleated RBC % Seg Neutrophils # Seg Neutrophils # Man Lymphocytes # (Manual) Monocytes # (Manual) PT INR D-Dimer Heparin Anti-Xa Level POC ABG pH ABG pH POC ABG pCO2 POC ABG pO2 ABG pO2 ABG HCO3 ABG O2 Saturation ABG Base Excess ABG Hemoglobin Oxyhemoglobin Sodium Potassium Chloride Carbon Dioxide BUN Creatinine Glucose POC Glucose 117 H Lactic Acid 2.90 H* Calcium Ionized Calcium Phosphorus Magnesium Iron TIBC Ferritin Total Bilirubin Direct Bilirubin AST ALT Alkaline Phosphatase Total Creatine Kinase CK-MB (CK-2) Troponin T C-Reactive Protein 13.30 H Total Protein Albumin Triglycerides LDL Cholesterol Direct HDL Cholesterol Free T4 PTH Intact Urine WBC (Auto) Urine Creatinine Salicylates Acetaminophen Crossmatch 03/20/19 03/21/19 03/21/19 21:55 04:26 04:26 WBC 37.8 H RBC Hgb Hct MCV RDW 15.4 H Plt Count 36 L Lymph % (Auto) [place] % (Auto) Lymph # [place] # Seg Neutrophils % Seg Neuts % (Manual) 93.0 H Lymphocytes % (Manual) 3.0 L Monocytes % (Manual) Nucleated RBC % 1.0 H Seg Neutrophils # 34.6 H Seg Neutrophils # Man 35.2 H Lymphocytes # (Manual) 1.1 L Monocytes # (Manual) PT INR D-Dimer Heparin Anti-Xa Level POC ABG pH ABG pH POC ABG pCO2 POC ABG pO2 ABG pO2 ABG HCO3 ABG O2 Saturation ABG Base Excess ABG Hemoglobin Oxyhemoglobin Sodium 131 L Potassium Chloride 90.7 L Carbon Dioxide 21 L BUN 69 H Creatinine 5.7 H Glucose 170 H POC Glucose 128 H Lactic Acid Calcium 6.1 L D Ionized Calcium Phosphorus Magnesium Iron TIBC Ferritin Total Bilirubin 9.50 H Direct Bilirubin AST 308 H ALT 124 H Alkaline Phosphatase 327 H Total Creatine Kinase 46346 H CK-MB (CK-2) Troponin T C-Reactive Protein Total Protein 5.7 L Albumin 2.6 L Triglycerides LDL Cholesterol Direct HDL Cholesterol Free T4 PTH Intact Urine WBC (Auto) Urine Creatinine Salicylates Acetaminophen Crossmatch 03/21/19 03/21/19 03/21/19 05:17 05:39 08:29 WBC RBC Hgb Hct MCV RDW Plt Count Lymph % (Auto) [place] % (Auto) Lymph # [place] # Seg Neutrophils % Seg Neuts % (Manual) Lymphocytes % (Manual) Monocytes % (Manual) Nucleated RBC % Seg Neutrophils # Seg Neutrophils # Man Lymphocytes # (Manual) Monocytes # (Manual) PT INR D-Dimer Heparin Anti-Xa Level POC ABG pH ABG pH POC ABG pCO2 POC ABG pO2 209 H ABG pO2 ABG HCO3 ABG O2 Saturation ABG Base Excess ABG Hemoglobin Oxyhemoglobin Sodium Potassium Chloride Carbon Dioxide BUN Creatinine Glucose POC Glucose 145 H Lactic Acid Calcium Ionized Calcium Phosphorus Magnesium Iron TIBC Ferritin Total Bilirubin Direct Bilirubin AST ALT Alkaline Phosphatase Total Creatine Kinase 16034 H CK-MB (CK-2) Troponin T C-Reactive Protein Total Protein Albumin Triglycerides LDL Cholesterol Direct HDL Cholesterol Free T4 PTH Intact Urine WBC (Auto) Urine Creatinine Salicylates Acetaminophen Crossmatch 03/21/19 03/21/19 03/21/19 08:29 11:43 12:00 WBC RBC Hgb Hct MCV RDW Plt Count Lymph % (Auto) [place] % (Auto) Lymph # [place] # Seg Neutrophils % Seg Neuts % (Manual) Lymphocytes % (Manual) Monocytes % (Manual) Nucleated RBC % Seg Neutrophils # Seg Neutrophils # Man Lymphocytes # (Manual) Monocytes # (Manual) PT INR D-Dimer Heparin Anti-Xa Level POC ABG pH ABG pH POC ABG pCO2 POC ABG pO2 ABG pO2 ABG HCO3 ABG O2 Saturation ABG Base Excess ABG Hemoglobin Oxyhemoglobin Sodium Potassium Chloride Carbon Dioxide BUN Creatinine Glucose POC Glucose 123 H Lactic Acid 2.60 H* 2.20 H* Calcium Ionized Calcium Phosphorus Magnesium Iron TIBC Ferritin Total Bilirubin Direct Bilirubin AST ALT Alkaline Phosphatase Total Creatine Kinase CK-MB (CK-2) Troponin T C-Reactive Protein Total Protein Albumin Triglycerides LDL Cholesterol Direct HDL Cholesterol Free T4 PTH Intact Urine WBC (Auto) Urine Creatinine Salicylates Acetaminophen Crossmatch 03/21/19 03/21/19 03/21/19 14:11 18:28 19:32 WBC RBC Hgb Hct MCV RDW Plt Count Lymph % (Auto) [place] % (Auto) Lymph # [place] # Seg Neutrophils % Seg Neuts % (Manual) Lymphocytes % (Manual) Monocytes % (Manual) Nucleated RBC % Seg Neutrophils # Seg Neutrophils # Man Lymphocytes # (Manual) Monocytes # (Manual) PT INR D-Dimer Heparin Anti-Xa Level POC ABG pH 7.293 L ABG pH POC ABG pCO2 POC ABG pO2 ABG pO2 ABG HCO3 ABG O2 Saturation ABG Base Excess ABG Hemoglobin Oxyhemoglobin Sodium Potassium Chloride Carbon Dioxide BUN Creatinine Glucose POC Glucose 153 H Lactic Acid 2.10 H* Calcium Ionized Calcium Phosphorus Magnesium Iron TIBC Ferritin Total Bilirubin Direct Bilirubin AST ALT Alkaline Phosphatase Total Creatine Kinase CK-MB (CK-2) Troponin T C-Reactive Protein Total Protein Albumin Triglycerides LDL Cholesterol Direct HDL Cholesterol Free T4 PTH Intact Urine WBC (Auto) Urine Creatinine Salicylates Acetaminophen Crossmatch 03/21/19 03/22/19 03/22/19 23:38 05:08 05:51 WBC RBC Hgb Hct MCV RDW Plt Count Lymph % (Auto) [place] % (Auto) Lymph # [place] # Seg Neutrophils % Seg Neuts % (Manual) Lymphocytes % (Manual) Monocytes % (Manual) Nucleated RBC % Seg Neutrophils # Seg Neutrophils # Man Lymphocytes # (Manual) Monocytes # (Manual) PT INR D-Dimer Heparin Anti-Xa Level POC ABG pH 7.283 L ABG pH POC ABG pCO2 POC ABG pO2 53 L ABG pO2 ABG HCO3 ABG O2 Saturation ABG Base Excess ABG Hemoglobin Oxyhemoglobin Sodium Potassium Chloride Carbon Dioxide BUN Creatinine Glucose POC Glucose 149 H 131 H Lactic Acid Calcium Ionized Calcium Phosphorus Magnesium Iron TIBC Ferritin Total Bilirubin Direct Bilirubin AST ALT Alkaline Phosphatase Total Creatine Kinase CK-MB (CK-2) Troponin T C-Reactive Protein Total Protein Albumin Triglycerides LDL Cholesterol Direct HDL Cholesterol Free T4 PTH Intact Urine WBC (Auto) Urine Creatinine Salicylates Acetaminophen Crossmatch 03/22/19 03/22/19 03/22/19 08:00 08:00 18:19 WBC 36.7 H RBC Hgb 11.0 L Hct 33.5 L MCV RDW 15.5 H Plt Count 43 L Lymph % (Auto) [place] % (Auto) Lymph # [place] # Seg Neutrophils % Seg Neuts % (Manual) 87.0 H Lymphocytes % (Manual) 7.0 L Monocytes % (Manual) Nucleated RBC % Seg Neutrophils # Seg Neutrophils # Man 31.9 H Lymphocytes # (Manual) Monocytes # (Manual) PT INR D-Dimer Heparin Anti-Xa Level POC ABG pH ABG pH POC ABG pCO2 46.4 H POC ABG pO2 108 H ABG pO2 ABG HCO3 ABG O2 Saturation ABG Base Excess ABG Hemoglobin Oxyhemoglobin Sodium 132 L Potassium 5.6 H Chloride 89.6 L Carbon Dioxide 20 L BUN 101 H Creatinine 7.4 H Glucose 124 H POC Glucose Lactic Acid Calcium 5.2 L* Ionized Calcium Phosphorus Magnesium Iron TIBC Ferritin Total Bilirubin 2.80 H Direct Bilirubin AST 119 H ALT 86 H Alkaline Phosphatase 245 H Total Creatine Kinase CK-MB (CK-2) Troponin T C-Reactive Protein Total Protein 5.6 L Albumin 2.5 L Triglycerides LDL Cholesterol Direct HDL Cholesterol Free T4 PTH Intact Urine WBC (Auto) Urine Creatinine Salicylates Acetaminophen Crossmatch 03/22/19 03/23/19 03/23/19 20:37 04:49 05:28 WBC 35.9 H RBC Hgb 10.8 L Hct 33.2 L MCV RDW 15.5 H Plt Count 49 L Lymph % (Auto) [place] % (Auto) Lymph # [place] # Seg Neutrophils % Seg Neuts % (Manual) 81.0 H Lymphocytes % (Manual) 3.5 L Monocytes % (Manual) Nucleated RBC % Seg Neutrophils # Seg Neutrophils # Man 29.1 H Lymphocytes # (Manual) Monocytes # (Manual) 1.4 H PT INR D-Dimer Heparin Anti-Xa Level POC ABG pH 7.296 L ABG pH POC ABG pCO2 46.2 H POC ABG pO2 ABG pO2 ABG HCO3 ABG O2 Saturation ABG Base Excess ABG Hemoglobin Oxyhemoglobin Sodium 129 L Potassium 5.2 H Chloride 91.1 L Carbon Dioxide BUN 91 H Creatinine 6.6 H Glucose 190 H POC Glucose Lactic Acid Calcium 5.3 L* Ionized Calcium Phosphorus Magnesium Iron TIBC Ferritin Total Bilirubin 1.80 H Direct Bilirubin AST 80 H ALT 62 H Alkaline Phosphatase 209 H Total Creatine Kinase 9758 H CK-MB (CK-2) Troponin T C-Reactive Protein Total Protein 5.2 L Albumin 2.2 L Triglycerides LDL Cholesterol Direct HDL Cholesterol Free T4 PTH Intact Urine WBC (Auto) Urine Creatinine Salicylates Acetaminophen Crossmatch 03/23/19 03/23/19 03/23/19 05:28 05:31 11:33 WBC 29.7 H RBC 3.59 L Hgb 10.1 L Hct 31.1 L MCV RDW 15.4 H Plt Count 47 L Lymph % (Auto) [place] % (Auto) Lymph # [place] # Seg Neutrophils % Seg Neuts % (Manual) 89.0 H Lymphocytes % (Manual) 6.0 L Monocytes % (Manual) Nucleated RBC % 1.0 H Seg Neutrophils # Seg Neutrophils # Man 26.4 H Lymphocytes # (Manual) Monocytes # (Manual) PT INR D-Dimer Heparin Anti-Xa Level POC ABG pH ABG pH POC ABG pCO2 POC ABG pO2 ABG pO2 ABG HCO3 ABG O2 Saturation ABG Base Excess ABG Hemoglobin Oxyhemoglobin Sodium Potassium Chloride Carbon Dioxide BUN Creatinine Glucose POC Glucose 122 H 113 H Lactic Acid Calcium Ionized Calcium Phosphorus Magnesium Iron TIBC Ferritin Total Bilirubin Direct Bilirubin AST ALT Alkaline Phosphatase Total Creatine Kinase CK-MB (CK-2) Troponin T C-Reactive Protein Total Protein Albumin Triglycerides LDL Cholesterol Direct HDL Cholesterol Free T4 PTH Intact Urine WBC (Auto) Urine Creatinine Salicylates Acetaminophen Crossmatch 03/23/19 03/24/19 03/24/19 17:47 00:00 04:50 WBC 35.0 H RBC Hgb 10.4 L Hct 32.4 L MCV RDW Plt Count 60 L Lymph % (Auto) [place] % (Auto) Lymph # [place] # Seg Neutrophils % Seg Neuts % (Manual) 93.0 H Lymphocytes % (Manual) 5.0 L Monocytes % (Manual) Nucleated RBC % 7.0 H Seg Neutrophils # Seg Neutrophils # Man 32.6 H Lymphocytes # (Manual) Monocytes # (Manual) PT INR D-Dimer Heparin Anti-Xa Level POC ABG pH ABG pH POC ABG pCO2 POC ABG pO2 ABG pO2 ABG HCO3 ABG O2 Saturation ABG Base Excess ABG Hemoglobin Oxyhemoglobin Sodium Potassium Chloride Carbon Dioxide BUN Creatinine Glucose POC Glucose 111 H 108 H Lactic Acid Calcium Ionized Calcium Phosphorus Magnesium Iron TIBC Ferritin Total Bilirubin Direct Bilirubin AST ALT Alkaline Phosphatase Total Creatine Kinase CK-MB (CK-2) Troponin T C-Reactive Protein Total Protein Albumin Triglycerides LDL Cholesterol Direct HDL Cholesterol Free T4 PTH Intact Urine WBC (Auto) Urine Creatinine Salicylates Acetaminophen Crossmatch 03/24/19 03/24/19 03/24/19 04:50 05:06 12:55 WBC RBC Hgb Hct MCV RDW Plt Count Lymph % (Auto) [place] % (Auto) Lymph # [place] # Seg Neutrophils % Seg Neuts % (Manual) Lymphocytes % (Manual) Monocytes % (Manual) Nucleated RBC % Seg Neutrophils # Seg Neutrophils # Man Lymphocytes # (Manual) Monocytes # (Manual) PT INR D-Dimer Heparin Anti-Xa Level POC ABG pH ABG pH POC ABG pCO2 POC ABG pO2 ABG pO2 ABG HCO3 ABG O2 Saturation ABG Base Excess ABG Hemoglobin Oxyhemoglobin Sodium 134 L Potassium 5.1 H Chloride 95.3 L Carbon Dioxide 21 L BUN 85 H Creatinine 6.4 H Glucose 109 H POC Glucose 112 H 110 H Lactic Acid Calcium 5.8 L* Ionized Calcium Phosphorus Magnesium Iron TIBC Ferritin Total Bilirubin Direct Bilirubin AST ALT Alkaline Phosphatase Total Creatine Kinase 5747 H CK-MB (CK-2) Troponin T C-Reactive Protein Total Protein Albumin Triglycerides LDL Cholesterol Direct HDL Cholesterol Free T4 PTH Intact Urine WBC (Auto) Urine Creatinine Salicylates Acetaminophen Crossmatch 03/24/19 03/25/19 03/25/19 23:29 05:00 05:00 WBC RBC Hgb Hct MCV RDW Plt Count Lymph % (Auto) [place] % (Auto) Lymph # [place] # Seg Neutrophils % Seg Neuts % (Manual) Lymphocytes % (Manual) Monocytes % (Manual) Nucleated RBC % Seg Neutrophils # Seg Neutrophils # Man Lymphocytes # (Manual) Monocytes # (Manual) PT INR D-Dimer Heparin Anti-Xa Level POC ABG pH ABG pH POC ABG pCO2 POC ABG pO2 ABG pO2 ABG HCO3 ABG O2 Saturation ABG Base Excess ABG Hemoglobin Oxyhemoglobin Sodium 133 L Potassium Chloride 94.0 L Carbon Dioxide 21 L BUN 81 H Creatinine 6.4 H Glucose POC Glucose 109 H Lactic Acid Calcium 5.5 L* Ionized Calcium Phosphorus Magnesium Iron TIBC Ferritin Total Bilirubin Direct Bilirubin AST 80 H ALT Alkaline Phosphatase 202 H Total Creatine Kinase 3589 H CK-MB (CK-2) Troponin T C-Reactive Protein Total Protein 5.3 L Albumin 2.4 L Triglycerides LDL Cholesterol Direct HDL Cholesterol Free T4 PTH Intact 329.9 H Urine WBC (Auto) Urine Creatinine Salicylates Acetaminophen Crossmatch 03/25/19 03/25/19 03/26/19 05:00 06:30 04:30 WBC 23.3 H RBC 3.61 L Hgb 10.2 L Hct 31.2 L MCV RDW Plt Count 57 L Lymph % (Auto) [place] % (Auto) Lymph # [place] # Seg Neutrophils % Seg Neuts % (Manual) 92.0 H Lymphocytes % (Manual) 6.0 L Monocytes % (Manual) Nucleated RBC % Seg Neutrophils # Seg Neutrophils # Man 21.4 H Lymphocytes # (Manual) Monocytes # (Manual) PT INR D-Dimer Heparin Anti-Xa Level POC ABG pH ABG pH 7.326 L POC ABG pCO2 POC ABG pO2 ABG pO2 109.5 H 137.4 H ABG HCO3 18.8 L 18.6 L ABG O2 Saturation ABG Base Excess -4.4 L -6.8 L ABG Hemoglobin 10.1 L 9.9 L Oxyhemoglobin Sodium Potassium Chloride Carbon Dioxide BUN Creatinine Glucose POC Glucose Lactic Acid Calcium Ionized Calcium Phosphorus Magnesium Iron TIBC Ferritin Total Bilirubin Direct Bilirubin AST ALT Alkaline Phosphatase Total Creatine Kinase CK-MB (CK-2) Troponin T C-Reactive Protein Total Protein Albumin Triglycerides LDL Cholesterol Direct HDL Cholesterol Free T4 PTH Intact Urine WBC (Auto) Urine Creatinine Salicylates Acetaminophen Crossmatch 03/26/19 03/26/19 03/26/19 23:22 Unknown Unknown WBC 19.5 H RBC 3.44 L Hgb 9.8 L Hct 29.9 L MCV RDW Plt Count 85 L Lymph % (Auto) [place] % (Auto) Lymph # [place] # Seg Neutrophils % Seg Neuts % (Manual) 95.0 H Lymphocytes % (Manual) 3.0 L Monocytes % (Manual) Nucleated RBC % Seg Neutrophils # Seg Neutrophils # Man 18.5 H Lymphocytes # (Manual) 0.6 L Monocytes # (Manual) PT INR D-Dimer Heparin Anti-Xa Level POC ABG pH ABG pH POC ABG pCO2 POC ABG pO2 ABG pO2 ABG HCO3 ABG O2 Saturation ABG Base Excess ABG Hemoglobin Oxyhemoglobin Sodium 135 L Potassium 5.2 H D Chloride 92.2 L Carbon Dioxide 18 L BUN 109 H Creatinine 8.5 H Glucose 117 H POC Glucose 69 L Lactic Acid Calcium 4.5 L* D Ionized Calcium Phosphorus Magnesium Iron TIBC Ferritin Total Bilirubin Direct Bilirubin AST ALT Alkaline Phosphatase Total Creatine Kinase 4527 H CK-MB (CK-2) Troponin T C-Reactive Protein Total Protein Albumin Triglycerides LDL Cholesterol Direct HDL Cholesterol Free T4 PTH Intact Urine WBC (Auto) Urine Creatinine Salicylates Acetaminophen Crossmatch 03/27/19 03/27/19 03/27/19 04:30 04:30 09:00 WBC 19.2 H RBC 3.42 L Hgb 9.9 L Hct 30.0 L MCV RDW Plt Count 84 L Lymph % (Auto) [place] % (Auto) Lymph # [place] # Seg Neutrophils % Seg Neuts % (Manual) Lymphocytes % (Manual) Monocytes % (Manual) Nucleated RBC % Seg Neutrophils # Seg Neutrophils # Man Lymphocytes # (Manual) Monocytes # (Manual) PT INR D-Dimer Heparin Anti-Xa Level POC ABG pH ABG pH POC ABG pCO2 POC ABG pO2 ABG pO2 ABG HCO3 ABG O2 Saturation ABG Base Excess ABG Hemoglobin Oxyhemoglobin Sodium 135 L Potassium Chloride 93.5 L Carbon Dioxide BUN 84 H Creatinine 7.1 H Glucose POC Glucose Lactic Acid Calcium 5.0 L* Ionized Calcium Phosphorus Magnesium Iron TIBC Ferritin Total Bilirubin Direct Bilirubin AST 78 H ALT Alkaline Phosphatase 135 H Total Creatine Kinase 4677 H CK-MB (CK-2) Troponin T C-Reactive Protein Total Protein 4.8 L Albumin 2.3 L Triglycerides 409 H LDL Cholesterol Direct HDL Cholesterol Free T4 PTH Intact Urine WBC (Auto) Urine Creatinine Salicylates Acetaminophen Crossmatch 03/27/19 03/27/19 03/27/19 12:37 14:15 14:15 WBC RBC Hgb 9.7 L Hct 29.5 L MCV RDW Plt Count 87 L Lymph % (Auto) [place] % (Auto) Lymph # [place] # Seg Neutrophils % Seg Neuts % (Manual) Lymphocytes % (Manual) Monocytes % (Manual) Nucleated RBC % Seg Neutrophils # Seg Neutrophils # Man Lymphocytes # (Manual) Monocytes # (Manual) PT 15.9 H INR 1.30 H D-Dimer Heparin Anti-Xa Level POC ABG pH ABG pH POC ABG pCO2 POC ABG pO2 ABG pO2 ABG HCO3 ABG O2 Saturation ABG Base Excess ABG Hemoglobin Oxyhemoglobin Sodium Potassium Chloride Carbon Dioxide BUN Creatinine Glucose POC Glucose 129 H Lactic Acid Calcium Ionized Calcium Phosphorus Magnesium Iron TIBC Ferritin Total Bilirubin Direct Bilirubin AST ALT Alkaline Phosphatase Total Creatine Kinase CK-MB (CK-2) Troponin T C-Reactive Protein Total Protein Albumin Triglycerides LDL Cholesterol Direct HDL Cholesterol Free T4 PTH Intact Urine WBC (Auto) Urine Creatinine Salicylates Acetaminophen Crossmatch 03/27/19 03/27/19 03/27/19 18:00 19:22 19:23 WBC RBC Hgb Hct MCV RDW Plt Count Lymph % (Auto) [place] % (Auto) Lymph # [place] # Seg Neutrophils % Seg Neuts % (Manual) Lymphocytes % (Manual) Monocytes % (Manual) Nucleated RBC % Seg Neutrophils # Seg Neutrophils # Man Lymphocytes # (Manual) Monocytes # (Manual) PT INR D-Dimer Heparin Anti-Xa Level < 0.10 L POC ABG pH ABG pH POC ABG pCO2 POC ABG pO2 ABG pO2 ABG HCO3 ABG O2 Saturation ABG Base Excess ABG Hemoglobin Oxyhemoglobin Sodium Potassium Chloride Carbon Dioxide BUN Creatinine Glucose POC Glucose 121 H Lactic Acid Calcium Ionized Calcium Phosphorus Magnesium Iron TIBC Ferritin Total Bilirubin Direct Bilirubin AST ALT Alkaline Phosphatase Total Creatine Kinase 4517 H CK-MB (CK-2) Troponin T C-Reactive Protein Total Protein Albumin Triglycerides LDL Cholesterol Direct HDL Cholesterol Free T4 PTH Intact Urine WBC (Auto) Urine Creatinine Salicylates Acetaminophen Crossmatch 03/27/19 03/27/19 03/28/19 22:10 23:52 03:49 WBC RBC Hgb Hct MCV RDW Plt Count Lymph % (Auto) [place] % (Auto) Lymph # [place] # Seg Neutrophils % Seg Neuts % (Manual) Lymphocytes % (Manual) Monocytes % (Manual) Nucleated RBC % Seg Neutrophils # Seg Neutrophils # Man Lymphocytes # (Manual) Monocytes # (Manual) PT INR D-Dimer Heparin Anti-Xa Level POC ABG pH 7.338 L ABG pH POC ABG pCO2 33.1 L POC ABG pO2 ABG pO2 ABG HCO3 ABG O2 Saturation ABG Base Excess ABG Hemoglobin Oxyhemoglobin Sodium Potassium Chloride Carbon Dioxide BUN Creatinine Glucose POC Glucose 113 H 117 H Lactic Acid Calcium Ionized Calcium Phosphorus Magnesium Iron TIBC Ferritin Total Bilirubin Direct Bilirubin AST ALT Alkaline Phosphatase Total Creatine Kinase CK-MB (CK-2) Troponin T C-Reactive Protein Total Protein Albumin Triglycerides LDL Cholesterol Direct HDL Cholesterol Free T4 PTH Intact Urine WBC (Auto) Urine Creatinine Salicylates Acetaminophen Crossmatch 03/28/19 03/28/19 03/28/19 05:13 05:13 06:18 WBC RBC Hgb Hct MCV RDW Plt Count Lymph % (Auto) [place] % (Auto) Lymph # [place] # Seg Neutrophils % Seg Neuts % (Manual) Lymphocytes % (Manual) Monocytes % (Manual) Nucleated RBC % Seg Neutrophils # Seg Neutrophils # Man Lymphocytes # (Manual) Monocytes # (Manual) PT INR D-Dimer Heparin Anti-Xa Level 0.23 L POC ABG pH ABG pH POC ABG pCO2 POC ABG pO2 ABG pO2 ABG HCO3 ABG O2 Saturation ABG Base Excess ABG Hemoglobin Oxyhemoglobin Sodium 135 L Potassium 5.5 H D Chloride 95.1 L Carbon Dioxide 16 L D BUN 129 H Creatinine 9.3 H Glucose 158 H POC Glucose 202 H Lactic Acid Calcium 4.0 L* D Ionized Calcium Phosphorus 12.40 H Magnesium Iron TIBC Ferritin Total Bilirubin Direct Bilirubin AST ALT Alkaline Phosphatase Total Creatine Kinase 4266 H CK-MB (CK-2) Troponin T C-Reactive Protein Total Protein Albumin Triglycerides LDL Cholesterol Direct HDL Cholesterol Free T4 PTH Intact Urine WBC (Auto) Urine Creatinine Salicylates Acetaminophen Crossmatch 03/28/19 03/28/19 03/28/19 08:25 10:00 12:00 WBC RBC Hgb 4.9 L* D Hct 15.4 L* D MCV RDW Plt Count Lymph % (Auto) [place] % (Auto) Lymph # [place] # Seg Neutrophils % Seg Neuts % (Manual) Lymphocytes % (Manual) Monocytes % (Manual) Nucleated RBC % Seg Neutrophils # Seg Neutrophils # Man Lymphocytes # (Manual) Monocytes # (Manual) PT 17.9 H INR 1.52 H D-Dimer 4845.98 H Heparin Anti-Xa Level POC ABG pH ABG pH POC ABG pCO2 POC ABG pO2 ABG pO2 ABG HCO3 ABG O2 Saturation ABG Base Excess ABG Hemoglobin Oxyhemoglobin Sodium Potassium Chloride Carbon Dioxide BUN Creatinine Glucose POC Glucose Lactic Acid Calcium Ionized Calcium Phosphorus Magnesium Iron TIBC Ferritin Total Bilirubin Direct Bilirubin AST ALT Alkaline Phosphatase Total Creatine Kinase CK-MB (CK-2) Troponin T C-Reactive Protein Total Protein Albumin Triglycerides LDL Cholesterol Direct HDL Cholesterol Free T4 PTH Intact Urine WBC (Auto) Urine Creatinine Salicylates Acetaminophen Crossmatch See Detail 03/28/19 03/28/19 03/28/19 12:28 14:10 17:43 WBC RBC Hgb 5.9 L* Hct 18.3 L* MCV RDW Plt Count Lymph % (Auto) [place] % (Auto) Lymph # [place] # Seg Neutrophils % Seg Neuts % (Manual) Lymphocytes % (Manual) Monocytes % (Manual) Nucleated RBC % Seg Neutrophils # Seg Neutrophils # Man Lymphocytes # (Manual) Monocytes # (Manual) PT INR D-Dimer Heparin Anti-Xa Level POC ABG pH ABG pH POC ABG pCO2 POC ABG pO2 ABG pO2 ABG HCO3 ABG O2 Saturation ABG Base Excess ABG Hemoglobin Oxyhemoglobin Sodium Potassium Chloride Carbon Dioxide BUN Creatinine Glucose POC Glucose 153 H 159 H Lactic Acid Calcium Ionized Calcium Phosphorus Magnesium Iron TIBC Ferritin Total Bilirubin Direct Bilirubin AST ALT Alkaline Phosphatase Total Creatine Kinase CK-MB (CK-2) Troponin T C-Reactive Protein Total Protein Albumin Triglycerides LDL Cholesterol Direct HDL Cholesterol Free T4 PTH Intact Urine WBC (Auto) Urine Creatinine Salicylates Acetaminophen Crossmatch 03/28/19 03/28/19 03/28/19 18:10 Unknown 23:59 WBC 24.8 H RBC 3.42 L Hgb 10.2 L D Hct 31.1 L D MCV RDW 15.4 H Plt Count 54 L Lymph % (Auto) [place] % (Auto) Lymph # [place] # Seg Neutrophils % Seg Neuts % (Manual) 91.0 H Lymphocytes % (Manual) 8.0 L Monocytes % (Manual) Nucleated RBC % Seg Neutrophils # Seg Neutrophils # Man 22.6 H Lymphocytes # (Manual) Monocytes # (Manual) PT INR D-Dimer Heparin Anti-Xa Level POC ABG pH ABG pH POC ABG pCO2 POC ABG pO2 ABG pO2 ABG HCO3 ABG O2 Saturation ABG Base Excess ABG Hemoglobin Oxyhemoglobin Sodium Potassium 5.7 H Chloride Carbon Dioxide BUN Creatinine Glucose POC Glucose 107 H Lactic Acid Calcium Ionized Calcium Phosphorus Magnesium Iron TIBC Ferritin Total Bilirubin Direct Bilirubin AST ALT Alkaline Phosphatase Total Creatine Kinase CK-MB (CK-2) Troponin T C-Reactive Protein Total Protein Albumin Triglycerides LDL Cholesterol Direct HDL Cholesterol Free T4 PTH Intact Urine WBC (Auto) Urine Creatinine Salicylates Acetaminophen Crossmatch 03/29/19 03/29/19 03/29/19 04:29 05:46 06:22 WBC RBC Hgb 8.6 L Hct 25.7 L MCV RDW Plt Count 93 L Lymph % (Auto) [place] % (Auto) Lymph # [place] # Seg Neutrophils % Seg Neuts % (Manual) Lymphocytes % (Manual) Monocytes % (Manual) Nucleated RBC % Seg Neutrophils # Seg Neutrophils # Man Lymphocytes # (Manual) Monocytes # (Manual) PT INR D-Dimer Heparin Anti-Xa Level POC ABG pH ABG pH POC ABG pCO2 32.2 L POC ABG pO2 ABG pO2 ABG HCO3 ABG O2 Saturation ABG Base Excess ABG Hemoglobin Oxyhemoglobin Sodium Potassium Chloride Carbon Dioxide BUN Creatinine Glucose POC Glucose 113 H Lactic Acid Calcium Ionized Calcium Phosphorus Magnesium Iron TIBC Ferritin Total Bilirubin Direct Bilirubin AST ALT Alkaline Phosphatase Total Creatine Kinase CK-MB (CK-2) Troponin T C-Reactive Protein Total Protein Albumin Triglycerides LDL Cholesterol Direct HDL Cholesterol Free T4 PTH Intact Urine WBC (Auto) Urine Creatinine Salicylates Acetaminophen Crossmatch 03/29/19 03/29/19 03/29/19 06:22 06:22 06:22 WBC 23.2 H RBC 2.91 L Hgb 8.6 L Hct 25.8 L MCV RDW Plt Count 91 L Lymph % (Auto) [place] % (Auto) Lymph # [place] # Seg Neutrophils % Seg Neuts % (Manual) Lymphocytes % (Manual) Monocytes % (Manual) Nucleated RBC % Seg Neutrophils # Seg Neutrophils # Man Lymphocytes # (Manual) Monocytes # (Manual) PT INR D-Dimer Heparin Anti-Xa Level POC ABG pH ABG pH POC ABG pCO2 POC ABG pO2 ABG pO2 ABG HCO3 ABG O2 Saturation ABG Base Excess ABG Hemoglobin Oxyhemoglobin Sodium 133 L Potassium Chloride 93.8 L Carbon Dioxide 18 L BUN 109 H Creatinine 7.4 H Glucose 124 H POC Glucose Lactic Acid Calcium 4.6 L* Ionized Calcium Phosphorus Magnesium Iron TIBC Ferritin Total Bilirubin Direct Bilirubin AST ALT Alkaline Phosphatase Total Creatine Kinase 3401 H CK-MB (CK-2) Troponin T C-Reactive Protein Total Protein Albumin Triglycerides 309 H LDL Cholesterol Direct HDL Cholesterol Free T4 PTH Intact Urine WBC (Auto) Urine Creatinine Salicylates Acetaminophen Crossmatch 03/29/19 03/29/19 03/29/19 11:48 11:48 18:24 WBC RBC Hgb 7.8 L Hct 23.2 L MCV RDW Plt Count Lymph % (Auto) [place] % (Auto) Lymph # [place] # Seg Neutrophils % Seg Neuts % (Manual) Lymphocytes % (Manual) Monocytes % (Manual) Nucleated RBC % Seg Neutrophils # Seg Neutrophils # Man Lymphocytes # (Manual) Monocytes # (Manual) PT 15.3 H INR 1.24 H D-Dimer Heparin Anti-Xa Level POC ABG pH ABG pH POC ABG pCO2 POC ABG pO2 ABG pO2 ABG HCO3 ABG O2 Saturation ABG Base Excess ABG Hemoglobin Oxyhemoglobin Sodium Potassium Chloride Carbon Dioxide BUN Creatinine Glucose POC Glucose 122 H Lactic Acid Calcium Ionized Calcium Phosphorus Magnesium Iron TIBC Ferritin Total Bilirubin Direct Bilirubin AST ALT Alkaline Phosphatase Total Creatine Kinase CK-MB (CK-2) Troponin T C-Reactive Protein Total Protein Albumin Triglycerides LDL Cholesterol Direct HDL Cholesterol Free T4 PTH Intact Urine WBC (Auto) Urine Creatinine Salicylates Acetaminophen Crossmatch 03/30/19 03/30/19 03/30/19 00:40 04:31 05:04 WBC RBC Hgb 7.6 L Hct 23.0 L MCV RDW Plt Count Lymph % (Auto) [place] % (Auto) Lymph # [place] # Seg Neutrophils % Seg Neuts % (Manual) Lymphocytes % (Manual) Monocytes % (Manual) Nucleated RBC % Seg Neutrophils # Seg Neutrophils # Man Lymphocytes # (Manual) Monocytes # (Manual) PT INR D-Dimer Heparin Anti-Xa Level POC ABG pH 7.346 L ABG pH POC ABG pCO2 POC ABG pO2 62 L ABG pO2 ABG HCO3 ABG O2 Saturation ABG Base Excess ABG Hemoglobin Oxyhemoglobin Sodium Potassium Chloride Carbon Dioxide BUN 79 H Creatinine 6.4 H Glucose POC Glucose Lactic Acid Calcium 6.1 L D Ionized Calcium Phosphorus Magnesium Iron TIBC Ferritin Total Bilirubin Direct Bilirubin AST ALT Alkaline Phosphatase Total Creatine Kinase CK-MB (CK-2) Troponin T C-Reactive Protein Total Protein Albumin Triglycerides LDL Cholesterol Direct HDL Cholesterol Free T4 PTH Intact Urine WBC (Auto) Urine Creatinine Salicylates Acetaminophen Crossmatch 03/30/19 03/30/19 03/30/19 08:45 12:09 22:43 WBC 14.3 H RBC 2.33 L Hgb 7.0 L 7.4 L Hct 21.0 L 22.3 L MCV RDW 15.6 H Plt Count 135 L Lymph % (Auto) [place] % (Auto) Lymph # [place] # Seg Neutrophils % Seg Neuts % (Manual) Lymphocytes % (Manual) Monocytes % (Manual) Nucleated RBC % Seg Neutrophils # Seg Neutrophils # Man Lymphocytes # (Manual) Monocytes # (Manual) PT INR D-Dimer Heparin Anti-Xa Level POC ABG pH ABG pH POC ABG pCO2 POC ABG pO2 ABG pO2 ABG HCO3 ABG O2 Saturation ABG Base Excess ABG Hemoglobin Oxyhemoglobin Sodium Potassium Chloride Carbon Dioxide BUN Creatinine Glucose POC Glucose Lactic Acid Calcium Ionized Calcium 3.7 L Phosphorus Magnesium Iron TIBC Ferritin Total Bilirubin Direct Bilirubin AST ALT Alkaline Phosphatase Total Creatine Kinase CK-MB (CK-2) Troponin T C-Reactive Protein Total Protein Albumin Triglycerides LDL Cholesterol Direct HDL Cholesterol Free T4 PTH Intact Urine WBC (Auto) Urine Creatinine Salicylates Acetaminophen Crossmatch 03/30/19 03/30/19 03/31/19 23:38 Unknown 04:44 WBC 11.5 H RBC 2.40 L Hgb 7.3 L Hct 21.9 L MCV RDW 15.4 H Plt Count Lymph % (Auto) 10.6 L [place] % (Auto) Lymph # [place] # Seg Neutrophils % 81.7 H Seg Neuts % (Manual) Lymphocytes % (Manual) Monocytes % (Manual) Nucleated RBC % Seg Neutrophils # 9.4 H Seg Neutrophils # Man Lymphocytes # (Manual) Monocytes # (Manual) PT INR D-Dimer Heparin Anti-Xa Level POC ABG pH ABG pH POC ABG pCO2 POC ABG pO2 ABG pO2 ABG HCO3 ABG O2 Saturation ABG Base Excess ABG Hemoglobin Oxyhemoglobin Sodium Potassium Chloride Carbon Dioxide BUN Creatinine Glucose POC Glucose 155 H Lactic Acid Calcium Ionized Calcium Phosphorus Magnesium Iron TIBC Ferritin Total Bilirubin Direct Bilirubin 0.4 H AST 63 H ALT Alkaline Phosphatase Total Creatine Kinase CK-MB (CK-2) Troponin T C-Reactive Protein Total Protein 4.9 L Albumin 2.2 L Triglycerides LDL Cholesterol Direct HDL Cholesterol Free T4 PTH Intact Urine WBC (Auto) Urine Creatinine Salicylates Acetaminophen Crossmatch 03/31/19 03/31/19 03/31/19 04:44 05:44 08:20 WBC RBC Hgb Hct MCV RDW Plt Count Lymph % (Auto) [place] % (Auto) Lymph # [place] # Seg Neutrophils % Seg Neuts % (Manual) Lymphocytes % (Manual) Monocytes % (Manual) Nucleated RBC % Seg Neutrophils # Seg Neutrophils # Man Lymphocytes # (Manual) Monocytes # (Manual) PT INR D-Dimer Heparin Anti-Xa Level POC ABG pH ABG pH POC ABG pCO2 53.5 H POC ABG pO2 62 L ABG pO2 ABG HCO3 ABG O2 Saturation ABG Base Excess ABG Hemoglobin Oxyhemoglobin Sodium 135 L Potassium Chloride 96.7 L Carbon Dioxide 19 L BUN 94 H Creatinine 7.8 H Glucose POC Glucose Lactic Acid Calcium 5.3 L* Ionized Calcium Phosphorus 8.20 H Magnesium Iron TIBC Ferritin Total Bilirubin Direct Bilirubin 0.4 H AST 60 H ALT Alkaline Phosphatase Total Creatine Kinase CK-MB (CK-2) Troponin T C-Reactive Protein Total Protein 4.8 L Albumin 2.1 L Triglycerides LDL Cholesterol Direct HDL Cholesterol Free T4 PTH Intact Urine WBC (Auto) Urine Creatinine Salicylates Acetaminophen Crossmatch 03/31/19 04/01/19 04/01/19 22:14 04:27 04:27 WBC RBC 2.60 L Hgb 8.0 L Hct 24.1 L MCV RDW 15.7 H Plt Count Lymph % (Auto) 7.9 L [place] % (Auto) Lymph # 0.7 L [place] # Seg Neutrophils % 83.6 H Seg Neuts % (Manual) Lymphocytes % (Manual) Monocytes % (Manual) Nucleated RBC % Seg Neutrophils # Seg Neutrophils # Man Lymphocytes # (Manual) Monocytes # (Manual) PT INR D-Dimer Heparin Anti-Xa Level POC ABG pH 7.286 L ABG pH POC ABG pCO2 54.7 H POC ABG pO2 179 H ABG pO2 ABG HCO3 ABG O2 Saturation ABG Base Excess ABG Hemoglobin Oxyhemoglobin Sodium Potassium Chloride Carbon Dioxide BUN 68 H Creatinine 6.6 H Glucose POC Glucose Lactic Acid Calcium 6.5 L D Ionized Calcium Phosphorus 7.30 H Magnesium Iron TIBC Ferritin Total Bilirubin Direct Bilirubin AST ALT Alkaline Phosphatase Total Creatine Kinase 1652 H CK-MB (CK-2) Troponin T C-Reactive Protein Total Protein Albumin Triglycerides LDL Cholesterol Direct HDL Cholesterol Free T4 PTH Intact Urine WBC (Auto) Urine Creatinine Salicylates Acetaminophen Crossmatch 04/01/19 04/01/19 04/01/19 05:14 05:37 18:37 WBC RBC Hgb Hct MCV RDW Plt Count Lymph % (Auto) [place] % (Auto) Lymph # [place] # Seg Neutrophils % Seg Neuts % (Manual) Lymphocytes % (Manual) Monocytes % (Manual) Nucleated RBC % Seg Neutrophils # Seg Neutrophils # Man Lymphocytes # (Manual) Monocytes # (Manual) PT INR D-Dimer Heparin Anti-Xa Level POC ABG pH 7.283 L ABG pH POC ABG pCO2 53.4 H POC ABG pO2 241 H ABG pO2 ABG HCO3 ABG O2 Saturation ABG Base Excess ABG Hemoglobin Oxyhemoglobin Sodium Potassium Chloride Carbon Dioxide BUN Creatinine Glucose POC Glucose 111 H 119 H Lactic Acid Calcium Ionized Calcium Phosphorus Magnesium Iron TIBC Ferritin Total Bilirubin Direct Bilirubin AST ALT Alkaline Phosphatase Total Creatine Kinase CK-MB (CK-2) Troponin T C-Reactive Protein Total Protein Albumin Triglycerides LDL Cholesterol Direct HDL Cholesterol Free T4 PTH Intact Urine WBC (Auto) Urine Creatinine Salicylates Acetaminophen Crossmatch 04/01/19 04/02/19 04/02/19 21:28 04:40 05:03 WBC RBC 2.36 L Hgb 7.2 L Hct 21.9 L MCV RDW 16.0 H Plt Count Lymph % (Auto) 10.8 L [place] % (Auto) Lymph # 0.8 L [place] # Seg Neutrophils % 80.3 H Seg Neuts % (Manual) Lymphocytes % (Manual) Monocytes % (Manual) Nucleated RBC % Seg Neutrophils # Seg Neutrophils # Man Lymphocytes # (Manual) Monocytes # (Manual) PT INR D-Dimer Heparin Anti-Xa Level POC ABG pH 7.299 L 7.300 L ABG pH POC ABG pCO2 48.2 H 45.2 H POC ABG pO2 133 H 107 H ABG pO2 ABG HCO3 ABG O2 Saturation ABG Base Excess ABG Hemoglobin Oxyhemoglobin Sodium Potassium Chloride Carbon Dioxide BUN Creatinine Glucose POC Glucose Lactic Acid Calcium Ionized Calcium Phosphorus Magnesium Iron TIBC Ferritin Total Bilirubin Direct Bilirubin AST ALT Alkaline Phosphatase Total Creatine Kinase CK-MB (CK-2) Troponin T C-Reactive Protein Total Protein Albumin Triglycerides LDL Cholesterol Direct HDL Cholesterol Free T4 PTH Intact Urine WBC (Auto) Urine Creatinine Salicylates Acetaminophen Crossmatch 04/02/19 04/02/19 04/02/19 05:03 05:03 12:15 WBC RBC Hgb 7.4 L Hct 22.6 L MCV RDW Plt Count Lymph % (Auto) [place] % (Auto) Lymph # [place] # Seg Neutrophils % Seg Neuts % (Manual) Lymphocytes % (Manual) Monocytes % (Manual) Nucleated RBC % Seg Neutrophils # Seg Neutrophils # Man Lymphocytes # (Manual) Monocytes # (Manual) PT INR D-Dimer Heparin Anti-Xa Level POC ABG pH ABG pH POC ABG pCO2 POC ABG pO2 ABG pO2 ABG HCO3 ABG O2 Saturation ABG Base Excess ABG Hemoglobin Oxyhemoglobin Sodium 136 L Potassium Chloride 97.8 L Carbon Dioxide 18 L BUN 82 H Creatinine 8.2 H Glucose POC Glucose Lactic Acid Calcium 6.7 L Ionized Calcium Phosphorus 7.50 H Magnesium Iron 26 L TIBC 138 L Ferritin 607.0 H Total Bilirubin Direct Bilirubin AST ALT Alkaline Phosphatase Total Creatine Kinase CK-MB (CK-2) Troponin T C-Reactive Protein Total Protein Albumin Triglycerides LDL Cholesterol Direct HDL Cholesterol Free T4 PTH Intact Urine WBC (Auto) Urine Creatinine Salicylates Acetaminophen Crossmatch 04/02/19 04/02/19 04/03/19 16:34 17:14 04:18 WBC RBC Hgb Hct MCV RDW Plt Count Lymph % (Auto) [place] % (Auto) Lymph # [place] # Seg Neutrophils % Seg Neuts % (Manual) Lymphocytes % (Manual) Monocytes % (Manual) Nucleated RBC % Seg Neutrophils # Seg Neutrophils # Man Lymphocytes # (Manual) Monocytes # (Manual) PT INR D-Dimer Heparin Anti-Xa Level POC ABG pH ABG pH POC ABG pCO2 POC ABG pO2 146 H ABG pO2 ABG HCO3 ABG O2 Saturation ABG Base Excess ABG Hemoglobin Oxyhemoglobin Sodium Potassium Chloride Carbon Dioxide BUN Creatinine Glucose POC Glucose 108 H Lactic Acid Calcium Ionized Calcium Phosphorus Magnesium Iron TIBC Ferritin Total Bilirubin Direct Bilirubin AST ALT Alkaline Phosphatase Total Creatine Kinase CK-MB (CK-2) Troponin T C-Reactive Protein Total Protein Albumin Triglycerides LDL Cholesterol Direct HDL Cholesterol Free T4 PTH Intact Urine WBC (Auto) Urine Creatinine Salicylates Acetaminophen Crossmatch See Detail 04/03/19 04/03/19 04/03/19 04:25 08:30 18:24 WBC RBC 2.40 L Hgb 7.3 L Hct 21.9 L MCV RDW Plt Count Lymph % (Auto) [place] % (Auto) 7.7 H Lymph # 0.9 L [place] # Seg Neutrophils % 74.6 H Seg Neuts % (Manual) Lymphocytes % (Manual) Monocytes % (Manual) Nucleated RBC % Seg Neutrophils # Seg Neutrophils # Man Lymphocytes # (Manual) Monocytes # (Manual) PT INR D-Dimer Heparin Anti-Xa Level POC ABG pH ABG pH POC ABG pCO2 POC ABG pO2 ABG pO2 ABG HCO3 ABG O2 Saturation ABG Base Excess ABG Hemoglobin Oxyhemoglobin Sodium 136 L Potassium Chloride 97.0 L Carbon Dioxide BUN 58 H Creatinine 7.3 H Glucose POC Glucose 106 H Lactic Acid Calcium 7.5 L Ionized Calcium Phosphorus 5.80 H D Magnesium Iron TIBC Ferritin Total Bilirubin Direct Bilirubin AST ALT Alkaline Phosphatase Total Creatine Kinase CK-MB (CK-2) Troponin T C-Reactive Protein Total Protein Albumin Triglycerides LDL Cholesterol Direct HDL Cholesterol Free T4 PTH Intact Urine WBC (Auto) Urine Creatinine Salicylates Acetaminophen Crossmatch 04/03/19 04/04/19 04/04/19 23:43 04:47 04:47 WBC RBC 2.72 L Hgb 8.3 L Hct 24.7 L MCV RDW 15.6 H Plt Count Lymph % (Auto) [place] % (Auto) 10.1 H Lymph # 0.8 L [place] # Seg Neutrophils % 71.4 H Seg Neuts % (Manual) Lymphocytes % (Manual) Monocytes % (Manual) Nucleated RBC % Seg Neutrophils # Seg Neutrophils # Man Lymphocytes # (Manual) Monocytes # (Manual) PT INR D-Dimer Heparin Anti-Xa Level POC ABG pH ABG pH POC ABG pCO2 POC ABG pO2 ABG pO2 123.8 H ABG HCO3 ABG O2 Saturation ABG Base Excess -3.0 L ABG Hemoglobin 7.9 L Oxyhemoglobin Sodium 134 L Potassium Chloride 97.9 L Carbon Dioxide BUN 64 H Creatinine 8.1 H Glucose POC Glucose Lactic Acid Calcium 7.2 L Ionized Calcium Phosphorus Magnesium Iron TIBC Ferritin Total Bilirubin Direct Bilirubin AST ALT Alkaline Phosphatase Total Creatine Kinase CK-MB (CK-2) Troponin T C-Reactive Protein Total Protein Albumin Triglycerides LDL Cholesterol Direct HDL Cholesterol Free T4 PTH Intact Urine WBC (Auto) Urine Creatinine Salicylates Acetaminophen Crossmatch 04/04/19 04/04/19 04/04/19 06:07 13:40 18:18 WBC RBC Hgb Hct MCV RDW Plt Count Lymph % (Auto) [place] % (Auto) Lymph # [place] # Seg Neutrophils % Seg Neuts % (Manual) Lymphocytes % (Manual) Monocytes % (Manual) Nucleated RBC % Seg Neutrophils # Seg Neutrophils # Man Lymphocytes # (Manual) Monocytes # (Manual) PT INR D-Dimer Heparin Anti-Xa Level POC ABG pH ABG pH POC ABG pCO2 POC ABG pO2 ABG pO2 95.9 H ABG HCO3 ABG O2 Saturation ABG Base Excess -3.0 L ABG Hemoglobin 8.5 L Oxyhemoglobin Sodium Potassium Chloride Carbon Dioxide BUN Creatinine Glucose POC Glucose 107 H 107 H Lactic Acid Calcium Ionized Calcium Phosphorus Magnesium Iron TIBC Ferritin Total Bilirubin Direct Bilirubin AST ALT Alkaline Phosphatase Total Creatine Kinase CK-MB (CK-2) Troponin T C-Reactive Protein Total Protein Albumin Triglycerides LDL Cholesterol Direct HDL Cholesterol Free T4 PTH Intact Urine WBC (Auto) Urine Creatinine Salicylates Acetaminophen Crossmatch 04/04/19 04/05/19 04/05/19 21:22 04:09 04:09 WBC RBC 2.76 L Hgb 8.4 L Hct 25.4 L MCV RDW 15.8 H Plt Count 133 L Lymph % (Auto) [place] % (Auto) 9.6 H Lymph # 0.7 L [place] # Seg Neutrophils % 72.6 H Seg Neuts % (Manual) Lymphocytes % (Manual) Monocytes % (Manual) Nucleated RBC % Seg Neutrophils # Seg Neutrophils # Man Lymphocytes # (Manual) Monocytes # (Manual) PT INR D-Dimer Heparin Anti-Xa Level POC ABG pH ABG pH POC ABG pCO2 47.2 H POC ABG pO2 137 H ABG pO2 ABG HCO3 ABG O2 Saturation ABG Base Excess ABG Hemoglobin Oxyhemoglobin Sodium 136 L Potassium Chloride Carbon Dioxide BUN 46 H Creatinine 6.7 H Glucose POC Glucose Lactic Acid Calcium 7.7 L Ionized Calcium Phosphorus Magnesium Iron TIBC Ferritin Total Bilirubin Direct Bilirubin AST ALT Alkaline Phosphatase Total Creatine Kinase CK-MB (CK-2) Troponin T C-Reactive Protein Total Protein Albumin Triglycerides LDL Cholesterol Direct HDL Cholesterol Free T4 PTH Intact Urine WBC (Auto) Urine Creatinine Salicylates Acetaminophen Crossmatch 04/05/19 04/05/19 04/05/19 05:28 06:14 16:50 WBC RBC Hgb Hct MCV RDW Plt Count Lymph % (Auto) [place] % (Auto) Lymph # [place] # Seg Neutrophils % Seg Neuts % (Manual) Lymphocytes % (Manual) Monocytes % (Manual) Nucleated RBC % Seg Neutrophils # Seg Neutrophils # Man Lymphocytes # (Manual) Monocytes # (Manual) PT INR D-Dimer Heparin Anti-Xa Level POC ABG pH ABG pH POC ABG pCO2 POC ABG pO2 67 L ABG pO2 ABG HCO3 ABG O2 Saturation ABG Base Excess ABG Hemoglobin Oxyhemoglobin Sodium Potassium Chloride Carbon Dioxide BUN Creatinine Glucose POC Glucose 108 H Lactic Acid Calcium Ionized Calcium Phosphorus Magnesium Iron TIBC Ferritin Total Bilirubin Direct Bilirubin AST ALT Alkaline Phosphatase Total Creatine Kinase CK-MB (CK-2) Troponin T C-Reactive Protein Total Protein Albumin Triglycerides LDL Cholesterol Direct HDL Cholesterol Free T4 PTH Intact Urine WBC (Auto) 40.0 H Urine Creatinine Salicylates Acetaminophen Crossmatch 04/05/19 04/06/19 04/06/19 17:22 00:13 04:44 WBC RBC 2.48 L Hgb 7.5 L Hct 22.9 L MCV RDW 16.0 H Plt Count 107 L Lymph % (Auto) [place] % (Auto) 10.7 H Lymph # 1.0 L [place] # Seg Neutrophils % Seg Neuts % (Manual) Lymphocytes % (Manual) Monocytes % (Manual) Nucleated RBC % Seg Neutrophils # Seg Neutrophils # Man Lymphocytes # (Manual) Monocytes # (Manual) PT INR D-Dimer Heparin Anti-Xa Level POC ABG pH ABG pH POC ABG pCO2 POC ABG pO2 ABG pO2 ABG HCO3 ABG O2 Saturation ABG Base Excess ABG Hemoglobin Oxyhemoglobin Sodium Potassium Chloride Carbon Dioxide BUN Creatinine Glucose POC Glucose 118 H 138 H Lactic Acid Calcium Ionized Calcium Phosphorus Magnesium Iron TIBC Ferritin Total Bilirubin Direct Bilirubin AST ALT Alkaline Phosphatase Total Creatine Kinase CK-MB (CK-2) Troponin T C-Reactive Protein Total Protein Albumin Triglycerides LDL Cholesterol Direct HDL Cholesterol Free T4 PTH Intact Urine WBC (Auto) Urine Creatinine Salicylates Acetaminophen Crossmatch 04/06/19 04/06/19 04/06/19 04:44 05:20 05:23 WBC RBC Hgb Hct MCV RDW Plt Count Lymph % (Auto) [place] % (Auto) Lymph # [place] # Seg Neutrophils % Seg Neuts % (Manual) Lymphocytes % (Manual) Monocytes % (Manual) Nucleated RBC % Seg Neutrophils # Seg Neutrophils # Man Lymphocytes # (Manual) Monocytes # (Manual) PT INR D-Dimer Heparin Anti-Xa Level POC ABG pH ABG pH POC ABG pCO2 POC ABG pO2 ABG pO2 104.0 H ABG HCO3 ABG O2 Saturation ABG Base Excess -2.1 L ABG Hemoglobin 7.3 L Oxyhemoglobin Sodium Potassium Chloride Carbon Dioxide BUN 64 H Creatinine 8.2 H Glucose 103 H POC Glucose 118 H Lactic Acid Calcium 7.3 L Ionized Calcium Phosphorus Magnesium Iron TIBC Ferritin Total Bilirubin Direct Bilirubin AST ALT Alkaline Phosphatase Total Creatine Kinase CK-MB (CK-2) Troponin T C-Reactive Protein Total Protein Albumin Triglycerides LDL Cholesterol Direct HDL Cholesterol Free T4 PTH Intact Urine WBC (Auto) Urine Creatinine Salicylates Acetaminophen Crossmatch 04/06/19 04/07/19 04/07/19 12:02 05:40 05:40 WBC RBC 2.59 L Hgb 7.9 L Hct 23.8 L MCV RDW 15.8 H Plt Count 89 L Lymph % (Auto) [place] % (Auto) 10.3 H Lymph # 1.1 L [place] # Seg Neutrophils % Seg Neuts % (Manual) Lymphocytes % (Manual) Monocytes % (Manual) Nucleated RBC % Seg Neutrophils # Seg Neutrophils # Man Lymphocytes # (Manual) Monocytes # (Manual) PT INR D-Dimer Heparin Anti-Xa Level POC ABG pH ABG pH POC ABG pCO2 POC ABG pO2 ABG pO2 ABG HCO3 ABG O2 Saturation ABG Base Excess ABG Hemoglobin Oxyhemoglobin Sodium 136 L Potassium 3.5 L Chloride Carbon Dioxide BUN 46 H Creatinine 6.2 H Glucose POC Glucose 108 H Lactic Acid Calcium 7.9 L Ionized Calcium Phosphorus Magnesium Iron TIBC Ferritin Total Bilirubin Direct Bilirubin AST ALT Alkaline Phosphatase Total Creatine Kinase CK-MB (CK-2) Troponin T C-Reactive Protein Total Protein Albumin Triglycerides LDL Cholesterol Direct HDL Cholesterol Free T4 PTH Intact Urine WBC (Auto) Urine Creatinine Salicylates Acetaminophen Crossmatch 04/07/19 04/09/19 04/09/19 12:57 04:28 04:28 WBC RBC 2.85 L Hgb 8.7 L Hct 26.2 L MCV RDW 15.6 H Plt Count Lymph % (Auto) [place] % (Auto) 10.4 H Lymph # 1.0 L [place] # Seg Neutrophils % 73.3 H Seg Neuts % (Manual) Lymphocytes % (Manual) Monocytes % (Manual) Nucleated RBC % Seg Neutrophils # Seg Neutrophils # Man Lymphocytes # (Manual) Monocytes # (Manual) PT INR D-Dimer Heparin Anti-Xa Level POC ABG pH ABG pH POC ABG pCO2 POC ABG pO2 107 H ABG pO2 ABG HCO3 ABG O2 Saturation ABG Base Excess ABG Hemoglobin Oxyhemoglobin Sodium Potassium 3.5 L Chloride 97.8 L Carbon Dioxide BUN 62 H Creatinine 8.1 H Glucose POC Glucose Lactic Acid Calcium 8.2 L Ionized Calcium Phosphorus 5.10 H Magnesium Iron TIBC Ferritin Total Bilirubin Direct Bilirubin AST ALT Alkaline Phosphatase Total Creatine Kinase CK-MB (CK-2) Troponin T C-Reactive Protein Total Protein Albumin Triglycerides LDL Cholesterol Direct HDL Cholesterol Free T4 PTH Intact Urine WBC (Auto) Urine Creatinine Salicylates Acetaminophen Crossmatch 04/10/19 04/11/19 04/11/19 18:15 00:25 04:16 WBC 11.5 H RBC 2.91 L Hgb 8.9 L Hct 27.6 L MCV 95 H RDW 17.5 H Plt Count Lymph % (Auto) [place] % (Auto) Lymph # [place] # Seg Neutrophils % Seg Neuts % (Manual) 71.0 H Lymphocytes % (Manual) Monocytes % (Manual) 8.0 H Nucleated RBC % Seg Neutrophils # Seg Neutrophils # Man 8.2 H Lymphocytes # (Manual) Monocytes # (Manual) 0.9 H PT INR D-Dimer Heparin Anti-Xa Level POC ABG pH ABG pH POC ABG pCO2 POC ABG pO2 ABG pO2 ABG HCO3 ABG O2 Saturation ABG Base Excess ABG Hemoglobin Oxyhemoglobin Sodium Potassium Chloride Carbon Dioxide BUN Creatinine Glucose POC Glucose 109 H 114 H Lactic Acid Calcium Ionized Calcium Phosphorus Magnesium Iron TIBC Ferritin Total Bilirubin Direct Bilirubin AST ALT Alkaline Phosphatase Total Creatine Kinase CK-MB (CK-2) Troponin T C-Reactive Protein Total Protein Albumin Triglycerides LDL Cholesterol Direct HDL Cholesterol Free T4 PTH Intact Urine WBC (Auto) Urine Creatinine Salicylates Acetaminophen Crossmatch 04/11/19 04/11/19 04/11/19 06:47 09:21 12:15 WBC RBC Hgb Hct MCV RDW Plt Count Lymph % (Auto) [place] % (Auto) Lymph # [place] # Seg Neutrophils % Seg Neuts % (Manual) Lymphocytes % (Manual) Monocytes % (Manual) Nucleated RBC % Seg Neutrophils # Seg Neutrophils # Man Lymphocytes # (Manual) Monocytes # (Manual) PT INR D-Dimer Heparin Anti-Xa Level POC ABG pH ABG pH POC ABG pCO2 POC ABG pO2 ABG pO2 ABG HCO3 ABG O2 Saturation ABG Base Excess ABG Hemoglobin Oxyhemoglobin Sodium Potassium 3.5 L Chloride Carbon Dioxide BUN 45 H Creatinine 6.0 H Glucose 113 H POC Glucose 106 H 109 H Lactic Acid Calcium Ionized Calcium Phosphorus Magnesium Iron TIBC Ferritin Total Bilirubin Direct Bilirubin AST ALT Alkaline Phosphatase Total Creatine Kinase CK-MB (CK-2) Troponin T C-Reactive Protein Total Protein Albumin Triglycerides LDL Cholesterol Direct HDL Cholesterol Free T4 PTH Intact Urine WBC (Auto) Urine Creatinine Salicylates Acetaminophen Crossmatch 04/11/19 04/12/19 04/12/19 18:42 12:13 23:52 WBC RBC Hgb Hct MCV RDW Plt Count Lymph % (Auto) [place] % (Auto) Lymph # [place] # Seg Neutrophils % Seg Neuts % (Manual) Lymphocytes % (Manual) Monocytes % (Manual) Nucleated RBC % Seg Neutrophils # Seg Neutrophils # Man Lymphocytes # (Manual) Monocytes # (Manual) PT INR D-Dimer Heparin Anti-Xa Level POC ABG pH ABG pH POC ABG pCO2 POC ABG pO2 ABG pO2 ABG HCO3 ABG O2 Saturation ABG Base Excess ABG Hemoglobin Oxyhemoglobin Sodium Potassium Chloride Carbon Dioxide BUN Creatinine Glucose POC Glucose 107 H 115 H 124 H Lactic Acid Calcium Ionized Calcium Phosphorus Magnesium Iron TIBC Ferritin Total Bilirubin Direct Bilirubin AST ALT Alkaline Phosphatase Total Creatine Kinase CK-MB (CK-2) Troponin T C-Reactive Protein Total Protein Albumin Triglycerides LDL Cholesterol Direct HDL Cholesterol Free T4 PTH Intact Urine WBC (Auto) Urine Creatinine Salicylates Acetaminophen Crossmatch 04/13/19 04/13/19 04/13/19 05:00 05:00 05:47 WBC 11.7 H RBC 2.97 L Hgb 8.8 L Hct 27.3 L MCV RDW 16.1 H Plt Count Lymph % (Auto) 9.5 L [place] % (Auto) 9.9 H Lymph # 1.1 L [place] # 1.2 H Seg Neutrophils % 78.6 H Seg Neuts % (Manual) Lymphocytes % (Manual) Monocytes % (Manual) Nucleated RBC % Seg Neutrophils # 9.2 H Seg Neutrophils # Man Lymphocytes # (Manual) Monocytes # (Manual) PT INR D-Dimer Heparin Anti-Xa Level POC ABG pH ABG pH POC ABG pCO2 POC ABG pO2 ABG pO2 ABG HCO3 ABG O2 Saturation ABG Base Excess ABG Hemoglobin Oxyhemoglobin Sodium Potassium 3.5 L Chloride Carbon Dioxide BUN 42 H Creatinine 4.6 H Glucose 106 H POC Glucose 107 H Lactic Acid Calcium 10.6 H D Ionized Calcium Phosphorus 5.90 H Magnesium Iron TIBC Ferritin Total Bilirubin Direct Bilirubin AST ALT Alkaline Phosphatase Total Creatine Kinase CK-MB (CK-2) Troponin T C-Reactive Protein Total Protein 5.8 L Albumin 2.5 L Triglycerides LDL Cholesterol Direct HDL Cholesterol Free T4 PTH Intact Urine WBC (Auto) Urine Creatinine Salicylates Acetaminophen Crossmatch Allied health notes reviewed: nursing
--- NOTE | 2019-04-13 11:52 | Progress Note ---
Assessment and Plan Cont present cardiac management. No systemic AC regarding AFib in setting of anemia, thrombocytopenia, GI bleed. Continue supportive measures. Can consider ischemic evaluation once medically stabilized. The patient has been seen in conjunction with Dr. Rojas who agrees with the assessment and plan of care. - Patient Problems (1) Cardiopulmonary arrest Current Visit: Yes Status: Acute (2) Acute respiratory failure Current Visit: Yes Status: Acute (3) Paroxysmal atrial fibrillation with RVR Current Visit: Yes Status: Acute (4) SVT (supraventricular tachycardia) Current Visit: Yes Status: Acute (5) Torsades de pointes Current Visit: Yes Status: Acute (6) Ventricular tachycardia Current Visit: Yes Status: Acute (7) Encephalopathy Current Visit: Yes Status: Acute (8) Septic shock Current Visit: Yes Status: Acute (9) Aspiration pneumonia Current Visit: Yes Status: Acute (10) Meningitis Current Visit: Yes Status: Suspected (11) Cellulitis Current Visit: Yes Status: Acute (12) Acute renal failure Current Visit: Yes Status: Acute (13) GI bleed Current Visit: Yes Status: Acute (14) Anemia Current Visit: Yes Status: Acute (15) Thrombocytopenia Current Visit: Yes Status: Resolved (16) DVT (deep venous thrombosis) Current Visit: Yes Status: Acute Subjective Date of service: 04/13/19 Principal diagnosis: Septic Shock; Ac. hypoxemic resp failure; Renzo. PNA; Rhabdomyolysis; RUBEN Interval history: pt resting in bed, awake and alert and talkative today. He is currently in SR. Objective Last Vital Signs Temp 100.4 F H 04/13/19 03:32 Pulse 81 04/13/19 11:00 Resp 22 04/13/19 11:00 BP 151/76 04/13/19 11:00 Pulse Ox 96 04/13/19 11:00 - Physical Examination General: No Apparent Distress HEENT: Positive: EOMI, Normocephaly, Mucus Membranes Moist Neck: Positive: neck supple, trachea midline Cardiac: Positive: Reg Rate and Rhythm, S1/S2 Neuro: Positive: Grossly Intact, Other (awake, alert and oriented) Abdomen: Positive: Soft, Active Bowel Sounds. Negative: Tender Skin: Positive: Clear. Negative: Rash Musculoskeletal: Normal Range of Motion Extremities: Present: normal - Labs and Meds Cardiac Enzymes 04/13/19 Range/Units 05:00 AST 21 (5-40) units/L CBC 04/13/19 Range/Units 05:00 WBC 11.7 H (4.5-11.0) K/mm3 RBC 2.97 L (3.65-5.03) M/mm3 Hgb 8.8 L (11.8-15.2) gm/dl Hct 27.3 L (35.5-45.6) % Plt Count 173 (140-440) K/mm3 Lymph # 1.1 L (1.2-5.4) K/mm3 [place] # 1.2 H (0.0-0.8) K/mm3 Eos # 0.1 (0.0-0.4) K/mm3 Baso # 0.1 (0.0-0.1) K/mm3 Comprehensive Metabolic Panel 04/13/19 Range/Units 05:00 Sodium 142 (137-145) mmol/L Potassium 3.5 L (3.6-5.0) mmol/L Chloride 101.5 (98-107) mmol/L Carbon Dioxide 28 (22-30) mmol/L BUN 42 H (9-20) mg/dL Creatinine 4.6 H (0.8-1.5) mg/dL Glucose 106 H (75-100) mg/dL Calcium 10.6 H D (8.4-10.2) mg/dL AST 21 (5-40) units/L ALT 13 (7-56) units/L Alkaline Phosphatase 52 (35-129) units/L Total Protein 5.8 L (6.3-8.2) g/dL Albumin 2.5 L (3.9-5) g/dL - Imaging and Cardiology Echo: report reviewed ( EF 40-45%, impaired relaxation. ) - Telemetry EKG Rhythm: Sinus Rhythm - EKG Sinus rhythms and dysrhythmias: sinus rhythm - Allied health notes Allied health notes reviewed: nursing
--- NOTE | 2019-04-13 12:32 | Progress Note ---
Assessment and Plan Assessment and plan: Acute hypoxic respiratory failure. Patient self extubated. Continue BiPAP as clinically indicated. Atrial fibrillation. Continue medications for rate control. Cardiology following. No systemic AC regarding AFib in setting of anemia, thrombocytopenia, GI bleed. Acute blood loss anemia. Patient with GI bleed secondary to peptic ulcer disease. EGD completed per GI. GI bleed/peptic ulcer disease. Continue PPI. Transfuse PRBCs as needed. Sepsis. Continue antibiotics per ID. Follow-up blood cultures. Ischemic hepatitis/liver. Elevated LFTs improved. Viral hepatitis panel negative. Acute kidney injury. Patient now with hemodialysis. Patient was started on hemodialysis on 03/18/19 due to worsening metabolic acidosis and hyperkalemia. Baseline renal function is unknown. CT abdomen was negative for obstructive nephropathy. Avoid nephrotoxic agents. Toxic metabolic encephalopathy. Brain MRI showed no acute intracranial abnormality, mild nonspecific chronic white matter changes, fluid throughout the sinuses and mastoid air cells. Thrombocytopenia. Etiology likely secondary to sepsis. Resolved. Rhabdomyolysis. CK normalized. History Interval history: No new issues overnight. Hospitalist Physical - Constitutional Vitals: Temp Pulse Resp BP Pulse Ox 100.4 F H 81 22 151/76 96 04/13/19 03:32 04/13/19 11:00 04/13/19 11:00 04/13/19 11:00 04/13/19 11:00 General appearance: Present: disheveled, other (Stuporus) - EENT Eyes: Present: PERRL, EOM intact ENT: hearing intact, clear oral mucosa, dentition normal - Neck Neck: Present: supple, normal ROM - Respiratory Respiratory effort: normal Respiratory: bilateral: CTA - Cardiovascular Rhythm: regular Heart Sounds: Present: S1 & S2. Absent: gallop, rub - Extremities Extremities: no ischemia, No edema, Full ROM - Abdominal General gastrointestinal: soft, non-tender, non-distended, normal bowel sounds - Integumentary Integumentary: Present: clear, warm, dry - Neurologic Neurologic: CNII-XII intact, moves all extremities Results - Labs CBC & Chem 7: 04/13/19 05:00 04/13/19 05:00 Labs: Laboratory Last Values WBC 11.7 K/mm3 (4.5-11.0) H 04/13/19 05:00 RBC 2.97 M/mm3 (3.65-5.03) L 04/13/19 05:00 Hgb 8.8 gm/dl (11.8-15.2) L 04/13/19 05:00 Hct 27.3 % (35.5-45.6) L 04/13/19 05:00 MCV 92 fl (84-94) 04/13/19 05:00 MCH 30 pg (28-32) 04/13/19 05:00 MCHC 32 % (32-34) 04/13/19 05:00 RDW 16.1 % (13.2-15.2) H 04/13/19 05:00 Plt Count 173 K/mm3 (140-440) 04/13/19 05:00 Lymph % (Auto) 9.5 % (13.4-35.0) L 04/13/19 05:00 [place] % (Auto) 9.9 % (0.0-7.3) H 04/13/19 05:00 Eos % (Auto) 0.8 % (0.0-4.3) 04/13/19 05:00 Baso % (Auto) 1.2 % (0.0-1.8) 04/13/19 05:00 Lymph # 1.1 K/mm3 (1.2-5.4) L 04/13/19 05:00 [place] # 1.2 K/mm3 (0.0-0.8) H 04/13/19 05:00 Eos # 0.1 K/mm3 (0.0-0.4) 04/13/19 05:00 Baso # 0.1 K/mm3 (0.0-0.1) 04/13/19 05:00 Add Manual Diff Complete 04/11/19 04:16 Total Counted 100 04/11/19 04:16 Seg Neutrophils % 78.6 % (40.0-70.0) H 04/13/19 05:00 Seg Neuts % (Manual) 71.0 % (40.0-70.0) H 04/11/19 04:16 Band Neutrophils % 1.0 % 04/11/19 04:16 Lymphocytes % (Manual) 17.0 % (13.4-35.0) 04/11/19 04:16 Reactive Lymphs % (Man) 0 % 04/11/19 04:16 Monocytes % (Manual) 8.0 % (0.0-7.3) H 04/11/19 04:16 Eosinophils % (Manual) 2.0 % (0.0-4.3) 04/11/19 04:16 Basophils % (Manual) 1.0 % (0.0-1.8) 04/11/19 04:16 Metamyelocytes % 0 % 04/11/19 04:16 Myelocytes % 0 % 04/11/19 04:16 Promyelocytes % 0 % 04/11/19 04:16 Blast Cells % 0 % 04/11/19 04:16 Nucleated RBC % Not Reportable 04/11/19 04:16 Seg Neutrophils # 9.2 K/mm3 (1.8-7.7) H 04/13/19 05:00 Seg Neutrophils # Man 8.2 K/mm3 (1.8-7.7) H 04/11/19 04:16 Band Neutrophils # 0.1 K/mm3 04/11/19 04:16 Lymphocytes # (Manual) 2.0 K/mm3 (1.2-5.4) 04/11/19 04:16 Abs React Lymphs (Man) 0.0 K/mm3 04/11/19 04:16 Monocytes # (Manual) 0.9 K/mm3 (0.0-0.8) H 04/11/19 04:16 Eosinophils # (Manual) 0.2 K/mm3 (0.0-0.4) 04/11/19 04:16 Basophils # (Manual) 0.1 K/mm3 (0.0-0.1) 04/11/19 04:16 Metamyelocytes # 0.0 K/mm3 04/11/19 04:16 Myelocytes # 0.0 K/mm3 04/11/19 04:16 Promyelocytes # 0.0 K/mm3 04/11/19 04:16 Blast Cells # 0.0 K/mm3 04/11/19 04:16 WBC Morphology Not Reportable 04/11/19 04:16 Hypersegmented Neuts Not Reportable 04/11/19 04:16 Hyposegmented Neuts Not Reportable 04/11/19 04:16 Hypogranular Neuts Not Reportable 04/11/19 04:16 Smudge Cells Not Reportable 04/11/19 04:16 Toxic Granulation Not Reportable 04/11/19 04:16 Toxic Vacuolation Not Reportable 04/11/19 04:16 Dohle Bodies Not Reportable 04/11/19 04:16 Pelger-Huet Anomaly Not Reportable 04/11/19 04:16 Joyce Rods Not Reportable 04/11/19 04:16 Platelet Estimate Consistent w auto 04/11/19 04:16 Clumped Platelets Not Reportable 04/11/19 04:16 Plt Clumps, EDTA Not Reportable 04/11/19 04:16 Large Platelets Not Reportable 04/11/19 04:16 Giant Platelets Not Reportable 04/11/19 04:16 Platelet Satelliting Not Reportable 04/11/19 04:16 Plt Morphology Comment Not Reportable 04/11/19 04:16 RBC Morphology Not Reportable 04/11/19 04:16 Dimorphic RBCs Not Reportable 04/11/19 04:16 Polychromasia Not Reportable 04/11/19 04:16 Hypochromasia Not Reportable 04/11/19 04:16 Poikilocytosis Not Reportable 04/11/19 04:16 Anisocytosis Rare 04/11/19 04:16 Microcytosis Rare 04/11/19 04:16 Macrocytosis Not Reportable 04/11/19 04:16 Spherocytes Not Reportable 04/11/19 04:16 Pappenheimer Bodies Not Reportable 04/11/19 04:16 Sickle Cells Not Reportable 04/11/19 04:16 Target Cells Not Reportable 04/11/19 04:16 Tear Drop Cells Not Reportable 04/11/19 04:16 Ovalocytes Not Reportable 04/11/19 04:16 Stomatocytes Few 03/26/19 Unknown Helmet Cells Not Reportable 04/11/19 04:16 Shrestha-Kinmundy Bodies Not Reportable 04/11/19 04:16 [place] Rings Not Reportable 04/11/19 04:16 [place] Cells Not Reportable 04/11/19 04:16 Bite Cells Not Reportable 04/11/19 04:16 Crenated Cell Not Reportable 04/11/19 04:16 Elliptocytes Not Reportable 04/11/19 04:16 Acanthocytes (Spur) Not Reportable 04/11/19 04:16 Rouleaux Not Reportable 04/11/19 04:16 Hemoglobin C Crystals Not Reportable 04/11/19 04:16 Schistocytes Not Reportable 04/11/19 04:16 Malaria parasites Not Reportable 04/11/19 04:16 Phil Bodies Not Reportable 04/11/19 04:16 Hem Pathologist Commnt No 04/11/19 04:16 PT 15.3 Sec. (12.2-14.9) H 03/29/19 11:48 INR 1.24 (0.87-1.13) H 03/29/19 11:48 APTT 26.6 Sec. (24.2-36.6) 03/28/19 12:00 Fibrinogen 226 mg/dl (211-480) 03/28/19 12:00 D-Dimer 4845.98 ng/mlDDU (0-234) H 03/28/19 12:00 Heparin Anti-Xa Level 0.23 U.I./ml (0.3-0.7) L 03/28/19 05:13 POC ABG pH 7.401 (7.35-7.45) 04/07/19 12:57 ABG pH 7.388 pH Units (7.350-7.450) 04/06/19 05:20 POC ABG pCO2 41.5 (35-45) 04/07/19 12:57 ABG pCO2 38.5 mm Hg 04/06/19 05:20 POC ABG pO2 107 (80-105) H 04/07/19 12:57 ABG pO2 104.0 mm Hg (80.0-90.0) H 04/06/19 05:20 POC ABG HCO3 25.7 (22-26 mml/L) 04/07/19 12:57 ABG HCO3 22.6 mmol/L (20.0-26.0) 04/06/19 05:20 POC ABG Total CO2 27 (23-27mmol/L) 04/07/19 12:57 POC ABG O2 Sat 98 04/07/19 12:57 ABG O2 Saturation 97.8 % (95.0-99.0) 04/06/19 05:20 ABG O2 Content 10.0 (0.0-44) 04/06/19 05:20 POC ABG Base Excess 1 ((-2) - (+3)mmol/L) 04/07/19 12:57 ABG Base Excess -2.1 mmol/L (-2.0-3.0) L 04/06/19 05:20 ABG Hemoglobin 7.3 gm/dl (14.0-18.0) L 04/06/19 05:20 ABG Carboxyhemoglobin 1.7 % (0.0-5.0) 04/06/19 05:20 ABG Methemoglobin 0.6 % (0.0-1.5) 04/06/19 05:20 Oxyhemoglobin 95.5 % (95.0-99.0) 04/06/19 05:20 FiO2 30 % 04/07/19 12:57 Sodium 142 mmol/L (137-145) 04/13/19 05:00 Potassium 3.5 mmol/L (3.6-5.0) L 04/13/19 05:00 Chloride 101.5 mmol/L (98-107) 04/13/19 05:00 Carbon Dioxide 28 mmol/L (22-30) 04/13/19 05:00 Anion Gap 16 mmol/L 04/13/19 05:00 BUN 42 mg/dL (9-20) H 04/13/19 05:00 Creatinine 4.6 mg/dL (0.8-1.5) H 04/13/19 05:00 Estimated GFR 14 ml/min 04/13/19 05:00 BUN/Creatinine Ratio 9 % 04/13/19 05:00 Glucose 106 mg/dL (75-100) H 04/13/19 05:00 POC Glucose 107 (70-105) H 04/13/19 05:47 Lactic Acid 1.90 mmol/L (0.7-2.0) 03/21/19 21:31 Calcium 10.6 mg/dL (8.4-10.2) H D 04/13/19 05:00 Ionized Calcium 3.7 mg/dL (4.8-5.6) L 03/30/19 12:09 Phosphorus 5.90 mg/dL (2.5-4.5) H 04/13/19 05:00 Magnesium 1.90 mg/dL (1.7-2.3) 03/31/19 15:07 Iron 26 ug/dL (49-181) L 04/02/19 05:03 TIBC 138 mcg/dL (250-450) L 04/02/19 05:03 Ferritin 607.0 ng/mL (13.0-400.0) H 04/02/19 05:03 Total Bilirubin 0.50 mg/dL (0.1-1.2) 04/13/19 05:00 Direct Bilirubin 0.4 mg/dL (0-0.2) H 03/31/19 08:20 Indirect Bilirubin 0.1 mg/dL 03/31/19 08:20 AST 21 units/L (5-40) 04/13/19 05:00 ALT 13 units/L (7-56) 04/13/19 05:00 Alkaline Phosphatase 52 units/L (35-129) 04/13/19 05:00 Total Creatine Kinase 62 units/L (55-170) 04/07/19 05:40 CK-MB (CK-2) 54.3 ng/mL (0.0-4.0) H 03/17/19 07:16 CK-MB (CK-2) Rel Index 0.0 (0-4) 03/17/19 07:16 Troponin T 0.058 ng/mL (0.00-0.029) H 03/17/19 07:16 C-Reactive Protein 13.30 mg/dL (0.00-1.30) H 03/20/19 14:45 Total Protein 5.8 g/dL (6.3-8.2) L 04/13/19 05:00 Albumin 2.5 g/dL (3.9-5) L 04/13/19 05:00 Albumin/Globulin Ratio 0.8 % 04/13/19 05:00 Triglycerides 309 mg/dL (2-149) H 03/29/19 06:22 Cholesterol 88 mg/dL (50-199) 03/16/19 22:32 LDL Cholesterol Direct 10 mg/dL (50-130) L 03/16/19 22:32 HDL Cholesterol 7 mg/dL (40-59) L 03/16/19 22:32 Cholesterol/HDL Ratio 12.57 % 03/16/19 22:32 Vitamin B12 903.0 pg/mL (211-911) 04/02/19 05:03 Folate 8.05 ng/mL (7.3-26.0) 04/02/19 05:03 Procalcitonin 25.42 ng/mL (<0.15) 03/27/19 19:21 TSH 2.200 mlU/mL (0.270-4.200) 03/16/19 17:05 Free T4 0.72 ng/dL (0.76-1.46) L 03/16/19 17:05 PTH Intact 329.9 pg/mL (15-65) H 03/25/19 05:00 Urine Color Kathy (Yellow) 04/05/19 16:50 Urine Turbidity Cloudy (Clear) 04/05/19 16:50 Urine pH 5.0 (5.0-7.0) 04/05/19 16:50 Ur Specific [place] 1.018 (1.003-1.030) 04/05/19 16:50 Urine Protein 100 mg/dl mg/dL (Negative) 04/05/19 16:50 Urine Glucose (UA) Neg mg/dL (Negative) 04/05/19 16:50 Urine Ketones Neg mg/dL (Negative) 04/05/19 16:50 Urine Blood Lg (Negative) 04/05/19 16:50 Urine Nitrite Neg (Negative) 04/05/19 16:50 Urine Bilirubin Neg (Negative) 04/05/19 16:50 Urine Urobilinogen < 2.0 mg/dL (<2.0) 04/05/19 16:50 Ur Leukocyte Esterase Tr (Negative) 04/05/19 16:50 Urine WBC (Auto) 40.0 /HPF (0.0-6.0) H 04/05/19 16:50 Urine RBC (Auto) > 182.0 /HPF (0.0-6.0) 04/05/19 16:50 U Epithel Cells (Auto) < 1.0 /HPF (0-13.0) 03/17/19 16:05 Amorphous Crystals 1+ 04/05/19 16:50 Urine Mucus Few /HPF 03/17/19 16:05 Urine Sperm 2+ /HPF ([employer]PERATIONS MANAGER) 03/17/19 16:05 Urine Eosinophils None seen (None Seen) 03/17/19 16:05 Urine Creatinine 106.6 mg/dL (0.1-20.0) H 03/17/19 16:05 Urine Sodium 95 mmol/L 03/17/19 16:05 Vancomycin Trough 11.5 ug/mL (5.0-20.0) 03/18/19 13:19 Random Vancomycin 16.6 ug/mL (0-40.0) 03/30/19 04:31 Salicylates < 0.3 mg/dL (2.8-20.0) L 03/16/19 17:05 Urine Opiates Screen Presumptive negative 03/17/19 16:05 Urine Methadone Screen Presumptive negative 03/17/19 16:05 Acetaminophen < 5.0 ug/mL (10.0-30.0) L 03/16/19 17:05 Ur Barbiturates Screen Presumptive negative 03/17/19 16:05 Ur Phencyclidine Scrn Presumptive negative 03/17/19 16:05 Ur Amphetamines Screen Presumptive negative 03/17/19 16:05 U Benzodiazepines Scrn Presumptive positive 03/17/19 16:05 Urine Cocaine Screen Presumptive negative 03/17/19 16:05 U Marijuana (THC) Screen Presumptive negative 03/17/19 16:05 Drugs of Abuse Note Disclamer 03/17/19 16:05 Plasma/Serum Alcohol < 0.01 % (0-0.07) 03/16/19 17:05 Hepatitis A IgM Ab Non-reactive (NonReactive) 03/18/19 13:18 Hep Bs Antigen Non-reactive (Negative) 03/18/19 13:18 Hep B Core IgM Ab Non-reactive (NonReactive) 03/18/19 13:18 Hepatitis C Antibody Non-reactive (NonReactive) 03/18/19 13:18 HIV 1&2 Antibody Rapid Non react (Non React) 03/17/19 11:52 HIV P24 Antigen Non react (Non React) 03/17/19 11:52 Influenza A (Rapid) Negative (Negative) 03/17/19 17:00 Influenza B (Rapid) Negative (Negative) 03/17/19 17:00 Group A Strep Rapid Negative (Negative) 03/17/19 17:00 Miscellaneous Test Flexitest 1 03/21/19 12:00 Blood Type A POSITIVE 04/02/19 16:34 Antibody Screen Negative 04/02/19 16:34 Crossmatch See Detail 04/02/19 16:34 Active Medications - Current Medications Current Medications: Generic Name Dose Route Start Last Admin Trade Name Freq PRN Reason Stop Dose Admin Acetaminophen 650 mg 04/02/19 23:26 04/13/19 10:47 Tylenol PO 650 mg Q4H PRN Administration Pain, Mild (1-3),temp>100.5 Albuterol 2.5 mg 03/29/19 13:08 Proventil IH Q4HRT PRN Shortness Of Breath Amiodarone HCl 400 mg 04/11/19 10:45 04/13/19 08:33 Cordarone PO 400 mg TID PAOLO Administration Bacitracin 1 applic 04/09/19 02:43 04/11/19 00:20 Antibiotic Oint TP 1 applic PRN PRN Administration upper lip sore/open Bumetanide 2 mg 04/10/19 18:00 04/13/19 06:06 Bumex IV 2 mg BID@0600,1800 PAOLO Administration Calcium Acetate 1,334 mg 03/31/19 14:00 04/13/19 08:33 Phoslo PO 1,334 mg TID PAOLO Administration Dextrose 50 gm 03/19/19 18:39 03/26/19 23:26 D50w (25gm) Vial IV 50 gm PRN PRN Administration Hypoglycemia Epoetin Jet 20,000 unit 03/31/19 10:15 04/06/19 10:41 Procrit SUB-Q 20,000 unit NEYMAR PRN Administration hemodialysis Hydrophilic Ointment 1 applic 03/16/19 15:50 Vaseline Lip Therapy TP Q2HR PRN Dry Lips Cefepime HCl 2 gm in 100 mls @ 200 mls/hr 04/11/19 18:00 04/12/19 18:03 Maxipime/Ns 2 Gm/100 Ml IV 200 mls/hr QPM PAOLO Administration Protocol Sodium Chloride 100 mls @ 999 mls/hr 04/13/19 08:30 Nacl 0.9% IV NEYMAR PRN Hypotension Lansoprazole 30 mg 04/11/19 10:00 04/13/19 10:27 Prevacid Solutab FEEDTUBE 30 mg BID PAOLO Administration Metoprolol Tartrate 5 mg 04/11/19 11:00 04/13/19 10:30 Lopressor IV 5 mg Q6H PAOLO Administration Multi-Ingred Cream/Lotion/Oil/Oint 1 applic 03/16/19 15:50 03/19/19 20:10 Artificial Tears Ophth Oint OU 1 applic Q4HR PRN Administration Dry Eye(s) Ondansetron HCl 4 mg 03/16/19 22:21 04/11/19 20:49 Zofran IV 4 mg Q8H PRN Administration Nausea And Vomiting Paricalcitol 2 mcg 03/30/19 10:00 04/13/19 10:27 Zemplar IV 2 mcg DAILY PAOLO Administration Nutrition/Malnutrition Assess - Dietary Evaluation Nutrition/Malnutrition Findings: Nutrition Notes Start: 03/17/19 14:22 Freq: Status: Active Protocol: Document 04/13/19 10:52 RM (Rec: 04/13/19 10:58 RM [id number]) Nutrition Notes Initial or Follow up Reassessment Current Diagnosis Acute Kidney Injury,Heart Failure Other Pertinent Diagnosis on HD, Septic shock,Multiple organ failure, encephalopathy, Aspiration pneu Current Diet Nepro at 50 ml/hr Labs/Tests Na 142 BUN 42 Creat 4.6 K 3.5 Pertinent Medications Zofran, Bumetanide Height 6 ft Weight 148.5 kg [place] Body Weight (kg) 80.90 BMI 44.4 Subjective/Other Information Observed Nepro infusing at goal rate. Per nurse pt is tolerating TF. Percent of energy/protein needs met: 100%/100% Burn Absent Trauma Absent Minimum of two criteria No #1 Nutrition Diagnosis Inadequate oral intake Diagnosis Progress(for reassessment Continues documentation) Is patient on ventilator? No Is Patient Ambulatory and/or Out of Bed No REE-([facility]-confined to bed) 2892.144 Kcal/Kg value to use for calculation 14 Approximate Energy Requirements Using 2079 kcal/Kg Calculation Used for Recommendations Kcal/kg Additional Notes Protein: 97-121g (1.2-1.5g/kg, IBW) Fluids:1 ml/kcal or per MD Nutrition Intervention Nutrition Support: Nepro 1.8 at 50 ml/hr Water flush 150 ml q4hr or per MD Kcal 2,160 Protein (gm) 97 Fluid (mL) 872 Goal #1 TF tolerance Goal #2 Continue to meet at least 75% of calorie and protein needs via TF Anticipated Discharge Needs: Unable to determine at this time Follow-Up By: 04/20/19 Additional Comments Follow for TF tolerance
--- NOTE | 2019-04-13 13:04 | Progress Note ---
Assessment and Plan Cultures: 03/16/2019 sputum: salivary contamination 03/16/2019 Blood culture: no growth 03/17/2019 Urine culture no growth 03/17/2019 throat culture: no growth 03/26/2019 Blood culture: no growth 03/27/2019 Blood culture negative. 04/04/2019 blood culture NGTD 04/05/2019 urine culture: no growth 04/11/2019 blood culture: no growth Assessment: 43y/o male with possible psych history admitted on 03/16/2019 with: 1) Septic shock: Resolved. Fever after right IJ exchanged overwire on 03/27, feve r is better; leukocytosis resolved. Fever source is unclear - suspect IJ DVT ?thrombophlebitis, other ?NMS ?sinusitis, ?drug fever. Brain MRI showed no acute intracranial abnormality, mild nonspecific chronic white matter changes, fluid throughout the sinuses and mastoid air cells. Venous US + right IJ DVT. Completed empiric Cefepime x 10 days on 04/06/2019. Initial septic shock - Possible Infectious etiology v/s possibility of Neuroleptic Malignant Syndrome given psych history, high fever of 105F and extremely elevated CPK of >100K. Unclear if he was on any psych med. From ID standpoint, we will continue broad coverage for acute bacterial meningitis, tick borne illness, aspiration pneumonia. Blood culture negative UA with mild pyuria. HIV rapid negative. Strep A rapid ag negative. No obvious infectious source identified yet. 2) Low grade fever with elevated WBC: f/u blood cultures and continue empiric IV abx. 3) Probable aspiration pneumonia, fluid overload, acute resp failure: on oxygen. Previously completed abx. 4) Acute encephalopathy: improving, awake, alert, calm. CT head showed diffuse cerebral edema ?artifact. 5) Acute renal failure: renally dosing all abx, now on iHD. 6) Elevated LFTs/shock liver: also likely elevated from Rhabdomyolysis. Viral hepatitis panel negative. LFTs improved. 7) Thrombocytopenia: platelet normalized. 8) Rhabdomyolysis: CK normalized. 9) Multiple superficial wounds: do not appear infected. Continue wound care. Recommendations: continue empiric IV Cefepime and Vancomycin, renally dosed If blood cultures remain negative at 48-72 hours, will stop abx and monitor clinically Continue wound care Katherine Elizabeth MD, FACP [facility] ([facility] C: [phone] O: [phone] F: [phone] Subjective Date of service: 04/13/19 Principal diagnosis: Septic Shock; Ac. hypoxemic resp failure; Renzo. PNA; Rhabdomyolysis; RUBEN Interval history: Low grade fever but more awake and alert today. Answering questions. Denies any pain. no new issues per RN. Objective - Exam Narrative Exam: Physical Exam: Constitutional: awake, alert, answering questions Head, Ears, Nose: Normocephalic, atraumatic. External ears, nose normal Eyes: Conjunctivae/corneas clear. No icterus. No ptosis. Neck: Supple, no meningeal signs. R IJ HD cath + Cardiovascular: S1, S2 normal. Respiratory: scattered rhonchi b/l GI: Soft, non-tender; bowel sounds normal. No peritoneal signs Musculoskeletal: anasarca+ with pedal and scrotal edema + Skin: superficial wounds with weeping, dressings + Hem/Lymphatic: No palpable cervical or supraclavicular nodes. No lymphangitis Psych: awake, no agitation Neurological: awake, alert, answering questions - Constitutional Vitals: Vital Signs Temp Pulse Resp BP Pulse Ox 100.4 F H 81 22 151/76 96 04/13/19 03:32 04/13/19 11:00 04/13/19 11:00 04/13/19 11:00 04/13/19 11:00 Temperature -Last 24 Hours Temperature 100.4 F Temperature 98.9 F Temperature 98.8 F - Labs CBC & Chem 7: 04/13/19 05:00 04/13/19 05:00 Labs: Abnormal lab results 04/12/19 04/13/19 04/13/19 Range/Units 23:52 05:00 05:00 WBC 11.7 H (4.5-11.0) K/mm3 RBC 2.97 L (3.65-5.03) M/mm3 Hgb 8.8 L (11.8-15.2) gm/dl Hct 27.3 L (35.5-45.6) % RDW 16.1 H (13.2-15.2) % Lymph % (Auto) 9.5 L (13.4-35.0) % [place] % (Auto) 9.9 H (0.0-7.3) % Lymph # 1.1 L (1.2-5.4) K/mm3 [place] # 1.2 H (0.0-0.8) K/mm3 Seg Neutrophils % 78.6 H (40.0-70.0) % Seg Neutrophils # 9.2 H (1.8-7.7) K/mm3 Potassium 3.5 L (3.6-5.0) mmol/L BUN 42 H (9-20) mg/dL Creatinine 4.6 H (0.8-1.5) mg/dL Glucose 106 H (75-100) mg/dL POC Glucose 124 H (70-105) Calcium 10.6 H D (8.4-10.2) mg/dL Phosphorus 5.90 H (2.5-4.5) mg/dL Total Protein 5.8 L (6.3-8.2) g/dL Albumin 2.5 L (3.9-5) g/dL 04/13/19 Range/Units 05:47 WBC (4.5-11.0) K/mm3 RBC (3.65-5.03) M/mm3 Hgb (11.8-15.2) gm/dl Hct (35.5-45.6) % RDW (13.2-15.2) % Lymph % (Auto) (13.4-35.0) % [place] % (Auto) (0.0-7.3) % Lymph # (1.2-5.4) K/mm3 [place] # (0.0-0.8) K/mm3 Seg Neutrophils % (40.0-70.0) % Seg Neutrophils # (1.8-7.7) K/mm3 Potassium (3.6-5.0) mmol/L BUN (9-20) mg/dL Creatinine (0.8-1.5) mg/dL Glucose (75-100) mg/dL POC Glucose 107 H (70-105) Calcium (8.4-10.2) mg/dL Phosphorus (2.5-4.5) mg/dL Total Protein (6.3-8.2) g/dL Albumin (3.9-5) g/dL
[2019-04-13] MEDS: EPOETIN ALFA 20,000 UNIT/1 ML INJ SUB-Q PRN (17:41)
[2019-04-13] MEDS: CEFEPIME/NS 2 GM/100 ML 2 GM/100 ML BAG IV SCH (17:53)
--- NOTE | 2019-04-13 19:24 | Progress Note ---
Assessment and Plan 1. Acute kidney injury: Vasomotor RUBEN in the setting of shock / volume depletion / Rhabdo. Baseline renal function is unknown. CT abdomen was negative for obstructive nephropathy. Monitor renal function. Renal prognosis is guarded. Avoid nephrotoxic agents. Meds dosage based on GFR. Patient was started on hemodialysis on 03/18/19 due to worsening metabolic acidosis and hyperkalemia. Hemodialysis: 03/18, 03/19, 03/20, 03/22, 03/23, 03/24, 03/26, 03/28, 03/29, 03/31, 04/02, 04/04, 04/06, 04/09, 04/11, 04/13. 2. FEN: Hyperkalemia, improved. Hyponatremia, improved. Metabolic acidosis, on maintenance HD. Volume overload, UF with HD as tolerated. Hypocalcemia, likely multifactorial. Continue Phoslo. Stop Zemplar due to hypercalcemia. Monitor lytes. 3. Septic shock: Followed by ID. Currently off pressors. 4. Rhabdomyolysis: Improved. 5. A.fib with RVR: On Amiodarone and Metoprolol. Followed by Cards. 6. Respiratory failure: Extubated. 7. Severe anemia: S/p PRBC. On Epogen. 8. Elevated transaminases. 9. Encephalopathy. Examination: General appearance: well-developed, appears stated age, obese, not in distress HEENT: Atraumatic EYES: Pupils reacting to light Neck: supple Respiratory: CTAB, decreased breath sounds Cardiology: regular, S1S2 heard, no murmur Gastrointestinal: no tenderness, obese, BS heard Integumentary: no rash noted Neurologic: opens eyes, barely able to extremities Ext: 1+ edema of all 4 extremities : scrotal edema noted Hemodialysis access: R IJ temp catheter Subjective Date of service: 04/13/19 Principal diagnosis: anemia - IJ DVT Interval history: Patient was seen and examined at the bedside. Objective - Vital Signs Vital signs: Vital Signs - 12hr 04/13/19 04/13/19 04/13/19 08:00 09:00 10:00 Temperature Pulse Rate 83 88 87 Pulse Rate [ 86 From Monitor] Respiratory 12 29 H 19 Rate Blood Pressure 135/69 148/76 151/76 O2 Sat by Pulse 96 95 97 Oximetry O2 Sat by Pulse Oximetry [ Anterior Bilateral Throughout] 04/13/19 04/13/19 04/13/19 10:30 11:00 12:00 Temperature Pulse Rate 86 81 87 Pulse Rate [ 82 From Monitor] Respiratory 22 36 H Rate Blood Pressure 151/76 151/76 159/78 O2 Sat by Pulse 96 96 Oximetry O2 Sat by Pulse Oximetry [ Anterior Bilateral Throughout] 04/13/19 04/13/19 04/13/19 13:01 14:01 14:15 Temperature 100.5 F H Pulse Rate 85 88 84 Pulse Rate [ From Monitor] Respiratory 24 18 29 H Rate Blood Pressure 140/80 155/103 141/79 O2 Sat by Pulse 96 96 Oximetry O2 Sat by Pulse 100 Oximetry [ Anterior Bilateral Throughout] 04/13/19 04/13/19 04/13/19 14:30 14:45 15:00 Temperature Pulse Rate 84 82 84 Pulse Rate [ From Monitor] Respiratory 30 H Rate Blood Pressure 151/83 142/80 151/83 O2 Sat by Pulse 96 Oximetry O2 Sat by Pulse Oximetry [ Anterior Bilateral Throughout] 04/13/19 04/13/19 04/13/19 15:15 15:30 15:45 Temperature Pulse Rate 83 83 82 Pulse Rate [ From Monitor] Respiratory Rate Blood Pressure 143/78 134/83 141/85 O2 Sat by Pulse Oximetry O2 Sat by Pulse Oximetry [ Anterior Bilateral Throughout] 04/13/19 04/13/19 04/13/19 16:00 16:15 16:30 Temperature Pulse Rate 82 83 81 Pulse Rate [ 83 From Monitor] Respiratory 29 H Rate Blood Pressure 152/80 152/80 142/71 O2 Sat by Pulse 97 Oximetry O2 Sat by Pulse Oximetry [ Anterior Bilateral Throughout] 04/13/19 04/13/19 04/13/19 16:45 17:00 17:10 Temperature Pulse Rate 83 81 79 Pulse Rate [ From Monitor] Respiratory 28 H Rate Blood Pressure 132/79 132/77 133/76 O2 Sat by Pulse 98 Oximetry O2 Sat by Pulse Oximetry [ Anterior Bilateral Throughout] 04/13/19 04/13/19 04/13/19 17:15 17:30 17:45 Temperature Pulse Rate 84 81 81 Pulse Rate [ From Monitor] Respiratory Rate Blood Pressure 132/77 133/76 139/84 O2 Sat by Pulse Oximetry O2 Sat by Pulse Oximetry [ Anterior Bilateral Throughout] 04/13/19 04/13/19 04/13/19 18:00 18:15 18:30 Temperature Pulse Rate 84 83 80 Pulse Rate [ From Monitor] Respiratory Rate Blood Pressure 143/83 141/79 145/87 O2 Sat by Pulse Oximetry O2 Sat by Pulse Oximetry [ Anterior Bilateral Throughout] 04/13/19 18:45 Temperature 98.6 F Pulse Rate 84 Pulse Rate [ From Monitor] Respiratory 21 Rate Blood Pressure 157/85 O2 Sat by Pulse Oximetry O2 Sat by Pulse 99 Oximetry [ Anterior Bilateral Throughout] - Lab 04/13/19 05:00 04/13/19 05:00 Most recent lab results ABG pH 7.388 pH Units (7.350-7.450) 04/06/19 05:20 ABG pCO2 38.5 mm Hg 04/06/19 05:20 ABG pO2 104.0 mm Hg (80.0-90.0) H 04/06/19 05:20 ABG HCO3 22.6 mmol/L (20.0-26.0) 04/06/19 05:20 ABG O2 Saturation 97.8 % (95.0-99.0) 04/06/19 05:20 Calcium 10.6 mg/dL (8.4-10.2) H D 04/13/19 05:00 Phosphorus 5.90 mg/dL (2.5-4.5) H 04/13/19 05:00 Magnesium 1.90 mg/dL (1.7-2.3) 03/31/19 15:07 Urine Creatinine 106.6 mg/dL (0.1-20.0) H 03/17/19 16:05 Urine Sodium 95 mmol/L 03/17/19 16:05 Medications & Allergies - Medications Allergies/Adverse Reactions: Allergies No Known Allergies Allergy (Unverified 03/16/19 17:17) Home Medications: Home Medications Medication Instructions Recorded Confirmed Last Taken Type Unobtainable 03/18/19 03/18/19 Unknown History Active Medications: Generic Name Dose Route Start Last Admin Trade Name Freq PRN Reason Stop Dose Admin Acetaminophen 650 mg 04/02/19 23:26 04/13/19 10:47 Tylenol PO 650 mg Q4H PRN Administration Pain, Mild (1-3),temp>100.5 Albuterol 2.5 mg 03/29/19 13:08 Proventil IH Q4HRT PRN Shortness Of Breath Amiodarone HCl 400 mg 04/11/19 10:45 04/13/19 14:30 Cordarone PO 400 mg TID PAOLO Administration Bacitracin 1 applic 04/09/19 02:43 04/11/19 00:20 Antibiotic Oint TP 1 applic PRN PRN Administration upper lip sore/open Bumetanide 2 mg 04/10/19 18:00 04/13/19 17:53 Bumex IV 2 mg BID@0600,1800 PAOLO Administration Calcium Acetate 1,334 mg 03/31/19 14:00 04/13/19 14:30 Phoslo PO 1,334 mg TID PAOLO Administration Dextrose 50 gm 03/19/19 18:39 03/26/19 23:26 D50w (25gm) Vial IV 50 gm PRN PRN Administration Hypoglycemia Epoetin Jet 20,000 unit 03/31/19 10:15 04/13/19 17:41 Procrit SUB-Q 20,000 unit NEYMAR PRN Administration hemodialysis Hydrophilic Ointment 1 applic 03/16/19 15:50 Vaseline Lip Therapy TP Q2HR PRN Dry Lips Cefepime HCl 2 gm in 100 mls @ 200 mls/hr 04/11/19 18:00 04/13/19 17:53 Maxipime/Ns 2 Gm/100 Ml IV 200 mls/hr QPM PAOLO Administration Protocol Sodium Chloride 100 mls @ 999 mls/hr 04/13/19 08:30 Nacl 0.9% IV NEYMAR PRN Hypotension Lansoprazole 30 mg 04/11/19 10:00 04/13/19 10:27 Prevacid Solutab FEEDTUBE 30 mg BID PAOLO Administration Metoprolol Tartrate 5 mg 04/11/19 11:00 04/13/19 17:10 Lopressor IV Not Given Q6H [facility] Multi-Ingred Cream/Lotion/Oil/Oint 1 applic 03/16/19 15:50 03/19/19 20:10 Artificial Tears Ophth Oint OU 1 applic Q4HR PRN Administration Dry Eye(s) Ondansetron HCl 4 mg 03/16/19 22:21 04/11/19 20:49 Zofran IV 4 mg Q8H PRN Administration Nausea And Vomiting Paricalcitol 2 mcg 03/30/19 10:00 04/13/19 10:27 Zemplar IV 2 mcg DAILY PAOLO Administration
[2019-04-14] MEDS ORDERED: hydrALAZINE 20 MG/1 ML INJ IV PRN (03:00)
--- NOTE | 2019-04-14 04:48 | XRay Report ---
ABDOMEN 1 VIEW(S) INDICATION / CLINICAL INFORMATION: Abdominal pain COMPARISON: None available. FINDINGS: TUBES / LINES: Nonweighted enteric feeding tube terminates near the distal stomach.. BOWEL GAS PATTERN: No significant abnormality. FREE AIR / EXTRALUMINAL GAS: None seen. ADDITIONAL FINDINGS: No significant additional findings. IMPRESSION: 1. No significant abnormality. Signer Name: Marlon Simpson MD Signed: 04/14/2019 4:44 AM Workstation Name: [id number]
[2019-04-14 05:25] LABS: Calcium 10.8 mg/dL (8.4-10.2)
[2019-04-14] MEDS: BUMETANIDE 2.5 MG/10 ML VIAL IV SCH ×2 (05:48→17:07)
[2019-04-14] MEDS: METOPROLOL TARTRATE 5 MG/5 ML INJ IV SCH ×4 (05:49→22:04)
[2019-04-14] MEDS: AMIODARONE 200 MG TAB PO SCH ×3 (07:46→20:11)
[2019-04-14] MEDS: CALCIUM ACETATE 667 MG CAP PO SCH ×3 (07:47→20:11)
[2019-04-14] MEDS ORDERED: POTASSIUM CHLORIDE ER 20 MEQ TAB PO NR (09:22)
[2019-04-14] MEDS ORDERED: VANCOMYCIN/NS 1 GM/250 ML 1 GM/250 ML BAG IV ONE (10:00)
[2019-04-14] MEDS: LANSOPRAZOLE 30 MG SOLUTAB FEEDTUBE SCH ×2 (10:37→21:04)
--- NOTE | 2019-04-14 11:08 | Progress Note ---
Assessment and Plan Patient on BiPAP and restraints continue medical therapy as per primary care team no anticoagulation in view of anemia per history of proximal atrial fibrillation on hemodialysis - Patient Problems (1) Acute renal failure Current Visit: Yes Status: Acute Qualifiers: Acute renal failure type: with acute tubular necrosis Qualified Code(s): N17.0 - Acute kidney failure with tubular necrosis (2) Acute respiratory failure Current Visit: Yes Status: Acute Qualifiers: Respiratory failure complication: hypoxia Qualified Code(s): J96.01 - Acute respiratory failure with hypoxia (3) Altered mental status Current Visit: Yes Status: Acute Qualifiers: Altered mental status type: unspecified Qualified Code(s): R41.82 - Altered mental status, unspecified (4) Aspiration pneumonia Current Visit: Yes Status: Acute Qualifiers: Aspiration pneumonia type: unspecified (5) Cardiopulmonary arrest Current Visit: Yes Status: Acute (6) Cellulitis Current Visit: Yes Status: Acute (7) GI bleed Current Visit: Yes Status: Acute (8) Metabolic encephalopathy Current Visit: Yes Status: Acute (9) Morbid obesity with BMI of 50.0-59.9, adult Current Visit: Yes Status: Acute (10) Multi-organ system dysfunction Current Visit: Yes Status: Acute (11) Paroxysmal atrial fibrillation with RVR Current Visit: Yes Status: Acute (12) Thrombocytopenia Current Visit: Yes Status: Resolved Subjective Date of service: 04/14/19 Principal diagnosis: anemia - IJ DVT Interval history: on bipap and restraints Objective Vital Signs Temp Pulse Pulse Resp BP Pulse Ox Pulse Ox 04/14/19 10:48 106 H 162/90 04/14/19 08:00 99.8 F H 04/14/19 06:00 89 31 H 139/72 94 04/14/19 05:49 98 H 161/79 04/14/19 05:00 100 H 38 H 147/73 94 04/14/19 04:36 99.8 F H 04/14/19 04:00 100 H 12 132/75 91 04/14/19 03:11 99 H 177/82 04/14/19 03:00 98 H 35 H 177/80 92 04/14/19 02:00 92 H 41 H 172/96 92 04/14/19 01:00 92 H 26 H 164/95 93 04/14/19 00:30 96 04/14/19 00:22 89 19 153/79 96 10/19/19 00:12 98.4 F 04/14/19 00:01 90 14 157/68 94 04/14/19 00:00 89 04/13/19 23:41 86 15 148/82 96 04/13/19 23:06 96 H 148/84 04/13/19 23:00 94 H 35 H 148/84 95 04/13/19 22:01 88 16 132/89 97 04/13/19 21:00 90 28 H 139/77 96 04/13/19 20:30 99.7 F H 04/13/19 20:00 88 19 147/83 96 04/13/19 19:00 83 28 H 157/85 99 04/13/19 18:45 98.6 F 84 21 157/85 99 04/13/19 18:30 80 145/87 04/13/19 18:15 83 141/79 04/13/19 18:00 83 27 H 141/79 99 04/13/19 17:45 81 139/84 04/13/19 17:30 81 133/76 04/13/19 17:15 84 132/77 04/13/19 17:10 79 133/76 04/13/19 17:00 81 28 H 132/77 98 04/13/19 16:45 83 132/79 04/13/19 16:30 81 142/71 04/13/19 16:15 83 152/80 04/13/19 16:00 82 83 29 H 152/80 97 04/13/19 15:45 82 141/85 04/13/19 15:30 83 134/83 04/13/19 15:15 83 143/78 04/13/19 15:00 84 30 H 151/83 96 04/13/19 14:45 82 142/80 04/13/19 14:30 84 151/83 04/13/19 14:15 100.5 F H 84 29 H 141/79 100 04/13/19 14:01 88 18 155/103 96 04/13/19 13:01 85 24 140/80 96 04/13/19 12:00 87 82 36 H 159/78 96 - Physical Examination General: Other HEENT: Positive: EOMI, Normocephaly, Mucus Membranes Moist Neck: Positive: neck supple, trachea midline Cardiac: Positive: Tachycardia Lungs: Positive: Decreased Breath Sounds Neuro: Positive: Grossly Intact, Other (awake, alert and oriented) Abdomen: Positive: Soft, Active Bowel Sounds. Negative: Tender /Rectal: Other (deferred) Skin: Positive: Clear. Negative: Rash Musculoskeletal: Normal Range of Motion Extremities: Present: normal. Absent: edema - Labs and Meds Comprehensive Metabolic Panel 04/14/19 Range/Units 03:55 Sodium 143 (137-145) mmol/L Potassium 3.0 L (3.6-5.0) mmol/L Chloride 101.3 (98-107) mmol/L Carbon Dioxide 27 (22-30) mmol/L BUN 30 H (9-20) mg/dL Creatinine 3.1 H (0.8-1.5) mg/dL Glucose 87 (75-100) mg/dL Calcium 10.8 H (8.4-10.2) mg/dL - Imaging and Cardiology Echo: report reviewed ( EF 40-45%, impaired relaxation. ) - Telemetry EKG Rhythm: Sinus Tachycardia - EKG Sinus rhythms and dysrhythmias: sinus rhythm - Allied health notes Allied health notes reviewed: RT
--- NOTE | 2019-04-14 11:40 | Progress Note ---
Assessment and Plan Severe sepsis with shock. Right axilla abscess versus localized pannus/fatty collection. Acute hypoxemic respiratory failure, on mechanical ventilator support. Likely aspiration pneumonia, bilateral. Morbid obesity. Rhabdomyolysis. Acute kidney injury. Leukocytosis. Morbid obesity. Metabolic acidosis. Lactic acidosis. Hypomagnesemia. Elevated serum transaminases/possible shock liver. Acute encephalopathy, toxic metabolic versus anoxic (Discussed Code status with him with RN in room and he very emphatically wants to be a FULL CODE) - continue BIPAP scheduled qhs - outpatient PSG - aggressive PT/OT as tolerated - advance tube feeds to goal rate as tolerated - ST evaluation ongoing - continue prn albuterol treatments - continue to wean FiO2 for sats > 90% - continue HD/UF per nephrology prescription for toxin and volume control - continue oral amiodarone for A-fib - prn supportive blood transfusions to keep serum Hb > 7.0 - Monitor hemodynamics closely - Transfuse PRBC's to keep HgB > 7g/dL - continue empiric broad spectrum antiinfective's per ID recommendations (de- escalate based on clinical and microbiologic data) - continue mobility protocols and off loading as tolerated for pressure ulcer prophylaxis - continue to avoid nephrotoxins, adjust all medications for GFR and CRCL - continue GI & VTE prophylaxis with - accuchecks with glycemic control per SSI for target BG of 140-180 mg/dl acutely - continue other care per attending / other consultants ... re-evaluate in am & prn CONDITION: IMPROVED PROGNOSIS: FAIR CODE STATUS: FULL CODE Subjective Date of service: 04/14/19 Principal diagnosis: Septic Shock; Ac. hypoxemic resp failure; Renzo. PNA; Rhabdomyolysis; RUBEN Interval history: Patient is seen today for: Severe sepsis with shock; Acute hypoxemic respiratory failure; Aspiration pneumonia; Morbid obesity; Rhabdomyolysis; Acute kidney injury; Morbid obesity; Elevated serum transaminases/possible shock liver; Acute encephalopathy (Toxic/Met) Seen and examined at bedside; 24hour events reviewed; nursing and respiratory care staff consulted; no adverse overnight events reported to me; resting peacefully in bed; renal function may be showing some improvement; No N/V/F/C; still very weak and remains on supplemental oxygen therapy Objective Vital Signs - 12hr 04/13/19 04/14/19 04/14/19 23:41 00:00 00:01 Temperature Pulse Rate 86 89 90 Respiratory 15 14 Rate Blood Pressure 148/82 157/68 O2 Sat by Pulse 96 94 Oximetry 04/14/19 04/14/19 04/14/19 00:12 00:22 00:30 Temperature 98.4 F Pulse Rate 89 Respiratory 19 Rate Blood Pressure 153/79 O2 Sat by Pulse 96 96 Oximetry 04/14/19 04/14/19 04/14/19 01:00 02:00 03:00 Temperature Pulse Rate 92 H 92 H 98 H Respiratory 26 H 41 H 35 H Rate Blood Pressure 164/95 172/96 177/80 O2 Sat by Pulse 93 92 92 Oximetry 04/14/19 04/14/19 04/14/19 03:11 04:00 04:36 Temperature 99.8 F H Pulse Rate 99 H 100 H Respiratory 12 Rate Blood Pressure 177/82 132/75 O2 Sat by Pulse 91 Oximetry 04/14/19 04/14/19 04/14/19 05:00 05:49 06:00 Temperature Pulse Rate 100 H 98 H 89 Respiratory 38 H 31 H Rate Blood Pressure 147/73 161/79 139/72 O2 Sat by Pulse 94 94 Oximetry 04/14/19 04/14/19 08:00 10:48 Temperature 99.8 F H Pulse Rate 106 H Respiratory Rate Blood Pressure 162/90 O2 Sat by Pulse Oximetry Constitutional: no acute distress, other (middle aged morbidly obese CM, normocephalic with incresed respiratory effort at rest) Eyes: icteric ENT: oropharynx moist, other (extubated) Neck: supple, no lymphadenopathy, no JVD, other (large neck circumference) Effort: mildly labored Ascultation: Bilateral: diminished breath sounds, rhonchi (scant) Percussion: Bilateral: not dull Cardiovascular: irregular rhythm, other ( S1,S2) Gastrointestinal: hypoactive bowel sounds, soft, non-tender, non-distended, other (obese) Integumentary: normal, other (blisters with some weeping over the extremities) Extremities: no cyanosis, pink and warm, pulses normal, no ischemia or petechiae Neurologic: normal mental status, non-focal exam (grossly), pupils equal and round, CN II-XII normal, other (very weak) Psychiatric: mood appropriate, affect normal CBC and BMP: 04/15/19 05:11 04/15/19 05:11 ABG, PT/INR, D-dimer: ABG POC ABG pH 7.401 (7.35-7.45) 04/07/19 12:57 ABG pH 7.388 pH Units (7.350-7.450) 04/06/19 05:20 POC ABG pCO2 41.5 (35-45) 04/07/19 12:57 ABG pCO2 38.5 mm Hg 04/06/19 05:20 POC ABG pO2 107 (80-105) H 04/07/19 12:57 ABG pO2 104.0 mm Hg (80.0-90.0) H 04/06/19 05:20 POC ABG HCO3 25.7 (22-26 mml/L) 04/07/19 12:57 POC ABG Total CO2 27 (23-27mmol/L) 04/07/19 12:57 POC ABG O2 Sat 98 04/07/19 12:57 ABG O2 Saturation 97.8 % (95.0-99.0) 04/06/19 05:20 PT/INR, D-dimer PT 15.3 Sec. (12.2-14.9) H 03/29/19 11:48 INR 1.24 (0.87-1.13) H 03/29/19 11:48 D-Dimer 4845.98 ng/mlDDU (0-234) H 03/28/19 12:00 Abnormal lab findings: Abnormal Labs 03/16/19 03/16/19 03/16/19 15:32 16:03 16:05 WBC 27.0 H RBC 5.55 H Hgb 15.7 H Hct 47.1 H MCV RDW Plt Count 75 L Lymph % (Auto) Jones % (Auto) Lymph # Jones # Seg Neutrophils % Seg Neuts % (Manual) 85.0 H Lymphocytes % (Manual) 2.0 L Monocytes % (Manual) Nucleated RBC % Seg Neutrophils # Seg Neutrophils # Man 23.0 H Lymphocytes # (Manual) 0.5 L Monocytes # (Manual) PT INR D-Dimer Heparin Anti-Xa Level POC ABG pH ABG pH POC ABG pCO2 POC ABG pO2 ABG pO2 ABG HCO3 ABG O2 Saturation ABG Base Excess ABG Hemoglobin Oxyhemoglobin Sodium 127 L Potassium Chloride 87.8 L Carbon Dioxide 17 L BUN 49 H Creatinine 5.8 H Glucose 150 H POC Glucose 118 H Lactic Acid Calcium 6.6 L Ionized Calcium Phosphorus Magnesium 1.10 L Iron TIBC Ferritin Total Bilirubin Direct Bilirubin AST ALT Alkaline Phosphatase Total Creatine Kinase 76985 H CK-MB (CK-2) Troponin T C-Reactive Protein Total Protein Albumin Triglycerides LDL Cholesterol Direct HDL Cholesterol Free T4 PTH Intact Urine WBC (Auto) Urine Creatinine Salicylates Acetaminophen Crossmatch 03/16/19 03/16/19 03/16/19 16:59 17:05 17:05 WBC RBC Hgb Hct MCV RDW Plt Count Lymph % (Auto) Jones % (Auto) Lymph # Jones # Seg Neutrophils % Seg Neuts % (Manual) Lymphocytes % (Manual) Monocytes % (Manual) Nucleated RBC % Seg Neutrophils # Seg Neutrophils # Man Lymphocytes # (Manual) Monocytes # (Manual) PT INR D-Dimer Heparin Anti-Xa Level POC ABG pH 7.297 L ABG pH POC ABG pCO2 33.0 L POC ABG pO2 ABG pO2 ABG HCO3 ABG O2 Saturation ABG Base Excess ABG Hemoglobin Oxyhemoglobin Sodium Potassium Chloride Carbon Dioxide BUN Creatinine Glucose POC Glucose Lactic Acid Calcium Ionized Calcium Phosphorus Magnesium Iron TIBC Ferritin Total Bilirubin Direct Bilirubin AST ALT Alkaline Phosphatase Total Creatine Kinase 34215 H CK-MB (CK-2) 83.1 H Troponin T C-Reactive Protein Total Protein Albumin Triglycerides LDL Cholesterol Direct HDL Cholesterol Free T4 0.72 L PTH Intact Urine WBC (Auto) Urine Creatinine Salicylates Acetaminophen Crossmatch 03/16/19 03/16/19 03/16/19 17:05 17:05 17:05 WBC RBC Hgb Hct MCV RDW Plt Count Lymph % (Auto) Jones % (Auto) Lymph # Jones # Seg Neutrophils % Seg Neuts % (Manual) Lymphocytes % (Manual) Monocytes % (Manual) Nucleated RBC % Seg Neutrophils # Seg Neutrophils # Man Lymphocytes # (Manual) Monocytes # (Manual) PT INR D-Dimer Heparin Anti-Xa Level POC ABG pH ABG pH POC ABG pCO2 POC ABG pO2 ABG pO2 ABG HCO3 ABG O2 Saturation ABG Base Excess ABG Hemoglobin Oxyhemoglobin Sodium Potassium Chloride Carbon Dioxide BUN Creatinine Glucose POC Glucose Lactic Acid 5.10 H* Calcium Ionized Calcium Phosphorus Magnesium Iron TIBC Ferritin Total Bilirubin Direct Bilirubin AST ALT Alkaline Phosphatase Total Creatine Kinase CK-MB (CK-2) Troponin T C-Reactive Protein Total Protein Albumin Triglycerides LDL Cholesterol Direct HDL Cholesterol Free T4 PTH Intact Urine WBC (Auto) Urine Creatinine Salicylates < 0.3 L Acetaminophen < 5.0 L Crossmatch 03/16/19 03/16/19 03/16/19 17:05 17:05 20:35 WBC RBC Hgb Hct MCV RDW Plt Count Lymph % (Auto) Jones % (Auto) Lymph # Jones # Seg Neutrophils % Seg Neuts % (Manual) Lymphocytes % (Manual) Monocytes % (Manual) Nucleated RBC % Seg Neutrophils # Seg Neutrophils # Man Lymphocytes # (Manual) Monocytes # (Manual) PT 15.9 H INR 1.30 H D-Dimer Heparin Anti-Xa Level POC ABG pH ABG pH POC ABG pCO2 POC ABG pO2 ABG pO2 ABG HCO3 ABG O2 Saturation ABG Base Excess ABG Hemoglobin Oxyhemoglobin Sodium Potassium Chloride Carbon Dioxide BUN Creatinine Glucose POC Glucose Lactic Acid 3.30 H* Calcium Ionized Calcium Phosphorus Magnesium Iron TIBC Ferritin Total Bilirubin 6.20 H Direct Bilirubin 5.9 H AST 800 H ALT 120 H Alkaline Phosphatase Total Creatine Kinase CK-MB (CK-2) Troponin T C-Reactive Protein Total Protein 4.4 L Albumin 2.4 L Triglycerides LDL Cholesterol Direct HDL Cholesterol Free T4 PTH Intact Urine WBC (Auto) Urine Creatinine Salicylates Acetaminophen Crossmatch 03/16/19 03/16/19 03/16/19 21:45 22:32 Unknown WBC RBC Hgb Hct MCV RDW Plt Count Lymph % (Auto) Jones % (Auto) Lymph # Jones # Seg Neutrophils % Seg Neuts % (Manual) Lymphocytes % (Manual) Monocytes % (Manual) Nucleated RBC % Seg Neutrophils # Seg Neutrophils # Man Lymphocytes # (Manual) Monocytes # (Manual) PT INR D-Dimer Heparin Anti-Xa Level POC ABG pH ABG pH POC ABG pCO2 POC ABG pO2 ABG pO2 ABG HCO3 ABG O2 Saturation ABG Base Excess ABG Hemoglobin Oxyhemoglobin Sodium Potassium Chloride Carbon Dioxide BUN Creatinine Glucose POC Glucose Lactic Acid 3.30 H* 3.00 H* Calcium Ionized Calcium Phosphorus Magnesium Iron TIBC Ferritin Total Bilirubin Direct Bilirubin AST ALT Alkaline Phosphatase Total Creatine Kinase CK-MB (CK-2) Troponin T 0.047 H D C-Reactive Protein Total Protein Albumin Triglycerides 395 H LDL Cholesterol Direct 10 L HDL Cholesterol 7 L Free T4 PTH Intact Urine WBC (Auto) Urine Creatinine Salicylates Acetaminophen Crossmatch 0903/17/19 03/17/19 03:45 03:45 03:45 WBC RBC Hgb Hct MCV RDW Plt Count Lymph % (Auto) Jones % (Auto) Lymph # Jones # Seg Neutrophils % Seg Neuts % (Manual) Lymphocytes % (Manual) Monocytes % (Manual) Nucleated RBC % Seg Neutrophils # Seg Neutrophils # Man Lymphocytes # (Manual) Monocytes # (Manual) PT INR D-Dimer Heparin Anti-Xa Level POC ABG pH ABG pH POC ABG pCO2 POC ABG pO2 ABG pO2 ABG HCO3 ABG O2 Saturation ABG Base Excess ABG Hemoglobin Oxyhemoglobin Sodium 131 L Potassium Chloride 88.9 L Carbon Dioxide BUN 53 H Creatinine 7.1 H Glucose POC Glucose Lactic Acid 4.10 H* Calcium 5.4 L* D Ionized Calcium Phosphorus 7.30 H Magnesium 1.60 L Iron TIBC Ferritin Total Bilirubin 5.90 H Direct Bilirubin AST 801 H ALT 109 H Alkaline Phosphatase Total Creatine Kinase 24000 H 57517 H CK-MB (CK-2) 41.5 H Troponin T 0.054 H C-Reactive Protein Total Protein 4.5 L Albumin 2.0 L Triglycerides LDL Cholesterol Direct HDL Cholesterol Free T4 PTH Intact Urine WBC (Auto) Urine Creatinine Salicylates Acetaminophen Crossmatch 03/17/19 03/17/19 03/17/19 05:47 07:16 07:16 WBC RBC Hgb Hct MCV RDW Plt Count Lymph % (Auto) Jones % (Auto) Lymph # Jones # Seg Neutrophils % Seg Neuts % (Manual) Lymphocytes % (Manual) Monocytes % (Manual) Nucleated RBC % Seg Neutrophils # Seg Neutrophils # Man Lymphocytes # (Manual) Monocytes # (Manual) PT INR D-Dimer Heparin Anti-Xa Level POC ABG pH 7.193 L ABG pH POC ABG pCO2 45.2 H POC ABG pO2 65 L ABG pO2 ABG HCO3 ABG O2 Saturation ABG Base Excess ABG Hemoglobin Oxyhemoglobin Sodium Potassium Chloride Carbon Dioxide BUN Creatinine Glucose POC Glucose Lactic Acid 5.50 H* Calcium Ionized Calcium Phosphorus Magnesium Iron TIBC Ferritin Total Bilirubin Direct Bilirubin AST ALT Alkaline Phosphatase Total Creatine Kinase 26545 H CK-MB (CK-2) 54.3 H Troponin T 0.058 H C-Reactive Protein Total Protein Albumin Triglycerides LDL Cholesterol Direct HDL Cholesterol Free T4 PTH Intact Urine WBC (Auto) Urine Creatinine Salicylates Acetaminophen Crossmatch 03/17/19 03/17/19 03/17/19 11:52 12:51 13:01 WBC RBC Hgb Hct MCV RDW Plt Count Lymph % (Auto) Jones % (Auto) Lymph # Jones # Seg Neutrophils % Seg Neuts % (Manual) Lymphocytes % (Manual) Monocytes % (Manual) Nucleated RBC % Seg Neutrophils # Seg Neutrophils # Man Lymphocytes # (Manual) Monocytes # (Manual) PT INR D-Dimer Heparin Anti-Xa Level POC ABG pH 7.154 L ABG pH POC ABG pCO2 34.3 L POC ABG pO2 73 L ABG pO2 ABG HCO3 ABG O2 Saturation ABG Base Excess ABG Hemoglobin Oxyhemoglobin Sodium Potassium Chloride Carbon Dioxide BUN Creatinine Glucose POC Glucose 60 L Lactic Acid 8.20 H* Calcium Ionized Calcium Phosphorus Magnesium Iron TIBC Ferritin Total Bilirubin Direct Bilirubin AST ALT Alkaline Phosphatase Total Creatine Kinase CK-MB (CK-2) Troponin T C-Reactive Protein Total Protein Albumin Triglycerides LDL Cholesterol Direct HDL Cholesterol Free T4 PTH Intact Urine WBC (Auto) Urine Creatinine Salicylates Acetaminophen Crossmatch 03/17/19 03/17/19 03/17/19 14:37 14:37 14:37 WBC 29.3 H RBC Hgb Hct MCV RDW 15.8 H Plt Count 45 L Lymph % (Auto) Jones % (Auto) Lymph # Jones # Seg Neutrophils % Seg Neuts % (Manual) 81.0 H Lymphocytes % (Manual) 1.0 L Monocytes % (Manual) 15.0 H Nucleated RBC % Seg Neutrophils # Seg Neutrophils # Man 23.7 H Lymphocytes # (Manual) 0.3 L Monocytes # (Manual) 4.4 H PT INR D-Dimer Heparin Anti-Xa Level POC ABG pH ABG pH POC ABG pCO2 POC ABG pO2 ABG pO2 ABG HCO3 ABG O2 Saturation ABG Base Excess ABG Hemoglobin Oxyhemoglobin Sodium Potassium Chloride Carbon Dioxide BUN Creatinine Glucose POC Glucose Lactic Acid 4.90 H* Calcium Ionized Calcium Phosphorus Magnesium Iron TIBC Ferritin Total Bilirubin Direct Bilirubin AST ALT Alkaline Phosphatase Total Creatine Kinase CK-MB (CK-2) Troponin T C-Reactive Protein 24.90 H Total Protein Albumin Triglycerides LDL Cholesterol Direct HDL Cholesterol Free T4 PTH Intact Urine WBC (Auto) Urine Creatinine Salicylates Acetaminophen Crossmatch 03/17/19 03/17/19 03/17/19 16:05 16:05 17:02 WBC RBC Hgb Hct MCV RDW Plt Count Lymph % (Auto) Jones % (Auto) Lymph # Jones # Seg Neutrophils % Seg Neuts % (Manual) Lymphocytes % (Manual) Monocytes % (Manual) Nucleated RBC % Seg Neutrophils # Seg Neutrophils # Man Lymphocytes # (Manual) Monocytes # (Manual) PT INR D-Dimer Heparin Anti-Xa Level POC ABG pH 7.183 L ABG pH POC ABG pCO2 POC ABG pO2 65 L ABG pO2 ABG HCO3 ABG O2 Saturation ABG Base Excess ABG Hemoglobin Oxyhemoglobin Sodium Potassium Chloride Carbon Dioxide BUN Creatinine Glucose POC Glucose Lactic Acid Calcium Ionized Calcium Phosphorus Magnesium Iron TIBC Ferritin Total Bilirubin Direct Bilirubin AST ALT Alkaline Phosphatase Total Creatine Kinase CK-MB (CK-2) Troponin T C-Reactive Protein Total Protein Albumin Triglycerides LDL Cholesterol Direct HDL Cholesterol Free T4 PTH Intact Urine WBC (Auto) 30.0 H Urine Creatinine 106.6 H Salicylates Acetaminophen Crossmatch 03/18/19 03/18/19 03/18/19 05:12 05:16 05:53 WBC RBC Hgb Hct MCV RDW Plt Count Lymph % (Auto) Jones % (Auto) Lymph # Jones # Seg Neutrophils % Seg Neuts % (Manual) Lymphocytes % (Manual) Monocytes % (Manual) Nucleated RBC % Seg Neutrophils # Seg Neutrophils # Man Lymphocytes # (Manual) Monocytes # (Manual) PT INR D-Dimer Heparin Anti-Xa Level POC ABG pH 7.257 L ABG pH POC ABG pCO2 31.6 L POC ABG pO2 69 L ABG pO2 ABG HCO3 ABG O2 Saturation ABG Base Excess ABG Hemoglobin Oxyhemoglobin Sodium Potassium Chloride Carbon Dioxide BUN Creatinine Glucose POC Glucose 141 H Lactic Acid 5.00 H* Calcium Ionized Calcium Phosphorus Magnesium Iron TIBC Ferritin Total Bilirubin Direct Bilirubin AST ALT Alkaline Phosphatase Total Creatine Kinase CK-MB (CK-2) Troponin T C-Reactive Protein Total Protein Albumin Triglycerides LDL Cholesterol Direct HDL Cholesterol Free T4 PTH Intact Urine WBC (Auto) Urine Creatinine Salicylates Acetaminophen Crossmatch 03/18/19 03/18/19 03/18/19 06:57 08:40 08:40 WBC 31.7 H RBC Hgb Hct MCV RDW 15.5 H Plt Count 35 L Lymph % (Auto) Jones % (Auto) Lymph # Jones # Seg Neutrophils % Seg Neuts % (Manual) Lymphocytes % (Manual) Monocytes % (Manual) Nucleated RBC % Seg Neutrophils # Seg Neutrophils # Man Lymphocytes # (Manual) Monocytes # (Manual) PT INR D-Dimer Heparin Anti-Xa Level POC ABG pH ABG pH POC ABG pCO2 POC ABG pO2 ABG pO2 ABG HCO3 ABG O2 Saturation ABG Base Excess ABG Hemoglobin Oxyhemoglobin Sodium 132 L Potassium 5.5 H D Chloride 88.5 L Carbon Dioxide 18 L BUN 71 H Creatinine 8.1 H Glucose 205 H POC Glucose Lactic Acid 5.00 H* Calcium 4.1 L* D Ionized Calcium Phosphorus Magnesium 2.40 H Iron TIBC Ferritin Total Bilirubin 7.50 H Direct Bilirubin AST 1088 H ALT 159 H Alkaline Phosphatase 190 H Total Creatine Kinase 924693 H CK-MB (CK-2) Troponin T C-Reactive Protein Total Protein 4.7 L Albumin 1.8 L Triglycerides LDL Cholesterol Direct HDL Cholesterol Free T4 PTH Intact Urine WBC (Auto) Urine Creatinine Salicylates Acetaminophen Crossmatch 03/18/19 03/18/19 03/18/19 12:33 12:50 13:19 WBC RBC Hgb Hct MCV RDW Plt Count Lymph % (Auto) Jones % (Auto) Lymph # Jones # Seg Neutrophils % Seg Neuts % (Manual) Lymphocytes % (Manual) Monocytes % (Manual) Nucleated RBC % Seg Neutrophils # Seg Neutrophils # Man Lymphocytes # (Manual) Monocytes # (Manual) PT INR D-Dimer Heparin Anti-Xa Level POC ABG pH 7.282 L ABG pH POC ABG pCO2 POC ABG pO2 67 L ABG pO2 ABG HCO3 ABG O2 Saturation ABG Base Excess ABG Hemoglobin Oxyhemoglobin Sodium Potassium Chloride Carbon Dioxide BUN Creatinine Glucose POC Glucose 129 H Lactic Acid 3.30 H* Calcium Ionized Calcium Phosphorus Magnesium Iron TIBC Ferritin Total Bilirubin Direct Bilirubin AST ALT Alkaline Phosphatase Total Creatine Kinase CK-MB (CK-2) Troponin T C-Reactive Protein Total Protein Albumin Triglycerides LDL Cholesterol Direct HDL Cholesterol Free T4 PTH Intact Urine WBC (Auto) Urine Creatinine Salicylates Acetaminophen Crossmatch 03/18/19 03/18/19 03/18/19 13:19 16:50 18:11 WBC RBC Hgb Hct MCV RDW Plt Count Lymph % (Auto) Jones % (Auto) Lymph # Jones # Seg Neutrophils % Seg Neuts % (Manual) Lymphocytes % (Manual) Monocytes % (Manual) Nucleated RBC % Seg Neutrophils # Seg Neutrophils # Man Lymphocytes # (Manual) Monocytes # (Manual) PT INR D-Dimer Heparin Anti-Xa Level POC ABG pH ABG pH POC ABG pCO2 POC ABG pO2 59 L ABG pO2 ABG HCO3 ABG O2 Saturation ABG Base Excess ABG Hemoglobin Oxyhemoglobin Sodium Potassium Chloride Carbon Dioxide BUN Creatinine Glucose POC Glucose 151 H Lactic Acid Calcium 4.2 L* Ionized Calcium Phosphorus Magnesium Iron TIBC Ferritin Total Bilirubin Direct Bilirubin AST ALT Alkaline Phosphatase Total Creatine Kinase 491663 H CK-MB (CK-2) Troponin T C-Reactive Protein Total Protein Albumin Triglycerides LDL Cholesterol Direct HDL Cholesterol Free T4 PTH Intact Urine WBC (Auto) Urine Creatinine Salicylates Acetaminophen Crossmatch 03/18/19 03/18/19 03/19/19 18:20 23:39 01:42 WBC RBC Hgb Hct MCV RDW Plt Count Lymph % (Auto) Jones % (Auto) Lymph # Jones # Seg Neutrophils % Seg Neuts % (Manual) Lymphocytes % (Manual) Monocytes % (Manual) Nucleated RBC % Seg Neutrophils # Seg Neutrophils # Man Lymphocytes # (Manual) Monocytes # (Manual) PT INR D-Dimer Heparin Anti-Xa Level POC ABG pH 7.345 L ABG pH 7.285 L POC ABG pCO2 POC ABG pO2 59 L ABG pO2 44.0 L ABG HCO3 ABG O2 Saturation 70.9 L ABG Base Excess -5.7 L ABG Hemoglobin 11.9 L Oxyhemoglobin 69.6 L Sodium Potassium Chloride Carbon Dioxide BUN Creatinine Glucose POC Glucose 152 H Lactic Acid Calcium Ionized Calcium Phosphorus Magnesium Iron TIBC Ferritin Total Bilirubin Direct Bilirubin AST ALT Alkaline Phosphatase Total Creatine Kinase CK-MB (CK-2) Troponin T C-Reactive Protein Total Protein Albumin Triglycerides LDL Cholesterol Direct HDL Cholesterol Free T4 PTH Intact Urine WBC (Auto) Urine Creatinine Salicylates Acetaminophen Crossmatch 03/19/19 03/19/19 03/19/19 04:00 04:00 05:35 WBC 36.5 H RBC Hgb Hct MCV RDW 15.8 H Plt Count 35 L Lymph % (Auto) Jones % (Auto) Lymph # Jones # Seg Neutrophils % Seg Neuts % (Manual) Lymphocytes % (Manual) Monocytes % (Manual) Nucleated RBC % Seg Neutrophils # Seg Neutrophils # Man Lymphocytes # (Manual) Monocytes # (Manual) PT INR D-Dimer Heparin Anti-Xa Level POC ABG pH ABG pH 7.265 L POC ABG pCO2 POC ABG pO2 ABG pO2 35.4 L* ABG HCO3 ABG O2 Saturation 54.4 L ABG Base Excess -6.7 L ABG Hemoglobin 12.9 L Oxyhemoglobin 53.4 L Sodium 132 L Potassium 5.7 H Chloride 89.8 L Carbon Dioxide 19 L BUN 62 H Creatinine 6.4 H Glucose 151 H POC Glucose Lactic Acid Calcium 5.2 L* D Ionized Calcium Phosphorus Magnesium Iron TIBC Ferritin Total Bilirubin 7.80 H Direct Bilirubin AST 682 H ALT 130 H Alkaline Phosphatase 167 H Total Creatine Kinase CK-MB (CK-2) Troponin T C-Reactive Protein Total Protein 4.8 L Albumin 2.3 L Triglycerides LDL Cholesterol Direct HDL Cholesterol Free T4 PTH Intact Urine WBC (Auto) Urine Creatinine Salicylates Acetaminophen Crossmatch 03/19/19 03/19/19 03/19/19 05:49 09:16 09:50 WBC RBC Hgb Hct MCV RDW Plt Count Lymph % (Auto) Jones % (Auto) Lymph # Jones # Seg Neutrophils % Seg Neuts % (Manual) Lymphocytes % (Manual) Monocytes % (Manual) Nucleated RBC % Seg Neutrophils # Seg Neutrophils # Man Lymphocytes # (Manual) Monocytes # (Manual) PT INR D-Dimer Heparin Anti-Xa Level POC ABG pH 7.222 L ABG pH POC ABG pCO2 56.6 H POC ABG pO2 ABG pO2 ABG HCO3 ABG O2 Saturation ABG Base Excess ABG Hemoglobin Oxyhemoglobin Sodium Potassium Chloride Carbon Dioxide BUN Creatinine Glucose POC Glucose 154 H Lactic Acid 2.70 H* Calcium Ionized Calcium Phosphorus Magnesium Iron TIBC Ferritin Total Bilirubin Direct Bilirubin AST ALT Alkaline Phosphatase Total Creatine Kinase CK-MB (CK-2) Troponin T C-Reactive Protein Total Protein Albumin Triglycerides LDL Cholesterol Direct HDL Cholesterol Free T4 PTH Intact Urine WBC (Auto) Urine Creatinine Salicylates Acetaminophen Crossmatch 03/19/19 03/19/19 03/19/19 09:50 11:28 17:58 WBC RBC Hgb Hct MCV RDW Plt Count Lymph % (Auto) Jones % (Auto) Lymph # Jones # Seg Neutrophils % Seg Neuts % (Manual) Lymphocytes % (Manual) Monocytes % (Manual) Nucleated RBC % Seg Neutrophils # Seg Neutrophils # Man Lymphocytes # (Manual) Monocytes # (Manual) PT INR D-Dimer Heparin Anti-Xa Level POC ABG pH 7.250 L ABG pH POC ABG pCO2 52.6 H POC ABG pO2 ABG pO2 ABG HCO3 ABG O2 Saturation ABG Base Excess ABG Hemoglobin Oxyhemoglobin Sodium Potassium Chloride Carbon Dioxide BUN Creatinine Glucose POC Glucose 160 H Lactic Acid Calcium Ionized Calcium Phosphorus Magnesium Iron TIBC Ferritin Total Bilirubin Direct Bilirubin AST ALT Alkaline Phosphatase Total Creatine Kinase 96837 H CK-MB (CK-2) Troponin T C-Reactive Protein Total Protein Albumin Triglycerides LDL Cholesterol Direct HDL Cholesterol Free T4 PTH Intact Urine WBC (Auto) Urine Creatinine Salicylates Acetaminophen Crossmatch 03/19/19 03/19/19 03/20/19 19:48 21:03 02:16 WBC RBC Hgb Hct MCV RDW Plt Count Lymph % (Auto) Jones % (Auto) Lymph # Jones # Seg Neutrophils % Seg Neuts % (Manual) Lymphocytes % (Manual) Monocytes % (Manual) Nucleated RBC % Seg Neutrophils # Seg Neutrophils # Man Lymphocytes # (Manual) Monocytes # (Manual) PT INR D-Dimer Heparin Anti-Xa Level POC ABG pH 7.279 L ABG pH POC ABG pCO2 50.3 H POC ABG pO2 129 H ABG pO2 ABG HCO3 ABG O2 Saturation ABG Base Excess ABG Hemoglobin Oxyhemoglobin Sodium Potassium Chloride Carbon Dioxide BUN Creatinine Glucose POC Glucose 119 H 119 H Lactic Acid Calcium Ionized Calcium Phosphorus Magnesium Iron TIBC Ferritin Total Bilirubin Direct Bilirubin AST ALT Alkaline Phosphatase Total Creatine Kinase CK-MB (CK-2) Troponin T C-Reactive Protein Total Protein Albumin Triglycerides LDL Cholesterol Direct HDL Cholesterol Free T4 PTH Intact Urine WBC (Auto) Urine Creatinine Salicylates Acetaminophen Crossmatch 03/20/19 03/20/19 03/20/19 04:23 05:05 09:30 WBC 36.3 H RBC Hgb Hct MCV RDW 15.5 H Plt Count 29 L Lymph % (Auto) Jones % (Auto) Lymph # Jones # Seg Neutrophils % Seg Neuts % (Manual) Lymphocytes % (Manual) Monocytes % (Manual) Nucleated RBC % Seg Neutrophils # Seg Neutrophils # Man Lymphocytes # (Manual) Monocytes # (Manual) PT INR D-Dimer Heparin Anti-Xa Level POC ABG pH ABG pH POC ABG pCO2 POC ABG pO2 280 H ABG pO2 ABG HCO3 ABG O2 Saturation ABG Base Excess ABG Hemoglobin Oxyhemoglobin Sodium Potassium Chloride Carbon Dioxide BUN Creatinine Glucose POC Glucose 115 H Lactic Acid Calcium Ionized Calcium Phosphorus Magnesium Iron TIBC Ferritin Total Bilirubin Direct Bilirubin AST ALT Alkaline Phosphatase Total Creatine Kinase CK-MB (CK-2) Troponin T C-Reactive Protein Total Protein Albumin Triglycerides LDL Cholesterol Direct HDL Cholesterol Free T4 PTH Intact Urine WBC (Auto) Urine Creatinine Salicylates Acetaminophen Crossmatch 03/20/19 03/20/19 03/20/19 09:30 09:30 11:34 WBC RBC Hgb Hct MCV RDW Plt Count Lymph % (Auto) Jones % (Auto) Lymph # Jones # Seg Neutrophils % Seg Neuts % (Manual) Lymphocytes % (Manual) Monocytes % (Manual) Nucleated RBC % Seg Neutrophils # Seg Neutrophils # Man Lymphocytes # (Manual) Monocytes # (Manual) PT INR D-Dimer Heparin Anti-Xa Level POC ABG pH ABG pH POC ABG pCO2 POC ABG pO2 ABG pO2 ABG HCO3 ABG O2 Saturation ABG Base Excess ABG Hemoglobin Oxyhemoglobin Sodium 131 L Potassium Chloride 92.3 L Carbon Dioxide 20 L BUN 68 H Creatinine 6.1 H Glucose 164 H POC Glucose 141 H Lactic Acid Calcium 5.3 L* Ionized Calcium Phosphorus Magnesium Iron TIBC Ferritin Total Bilirubin 9.50 H Direct Bilirubin AST 381 H ALT 116 H Alkaline Phosphatase 255 H Total Creatine Kinase 67413 H CK-MB (CK-2) Troponin T C-Reactive Protein Total Protein 5.1 L Albumin 2.3 L Triglycerides LDL Cholesterol Direct HDL Cholesterol Free T4 PTH Intact Urine WBC (Auto) Urine Creatinine Salicylates Acetaminophen Crossmatch 03/20/19 03/20/19 03/20/19 14:41 14:45 18:50 WBC RBC Hgb Hct MCV RDW Plt Count Lymph % (Auto) Jones % (Auto) Lymph # Jones # Seg Neutrophils % Seg Neuts % (Manual) Lymphocytes % (Manual) Monocytes % (Manual) Nucleated RBC % Seg Neutrophils # Seg Neutrophils # Man Lymphocytes # (Manual) Monocytes # (Manual) PT INR D-Dimer Heparin Anti-Xa Level POC ABG pH ABG pH POC ABG pCO2 POC ABG pO2 ABG pO2 ABG HCO3 ABG O2 Saturation ABG Base Excess ABG Hemoglobin Oxyhemoglobin Sodium Potassium Chloride Carbon Dioxide BUN Creatinine Glucose POC Glucose 117 H Lactic Acid 2.90 H* Calcium Ionized Calcium Phosphorus Magnesium Iron TIBC Ferritin Total Bilirubin Direct Bilirubin AST ALT Alkaline Phosphatase Total Creatine Kinase CK-MB (CK-2) Troponin T C-Reactive Protein 13.30 H Total Protein Albumin Triglycerides LDL Cholesterol Direct HDL Cholesterol Free T4 PTH Intact Urine WBC (Auto) Urine Creatinine Salicylates Acetaminophen Crossmatch 03/20/19 03/21/19 03/21/19 21:55 04:26 04:26 WBC 37.8 H RBC Hgb Hct MCV RDW 15.4 H Plt Count 36 L Lymph % (Auto) Jones % (Auto) Lymph # Jones # Seg Neutrophils % Seg Neuts % (Manual) 93.0 H Lymphocytes % (Manual) 3.0 L Monocytes % (Manual) Nucleated RBC % 1.0 H Seg Neutrophils # 34.6 H Seg Neutrophils # Man 35.2 H Lymphocytes # (Manual) 1.1 L Monocytes # (Manual) PT INR D-Dimer Heparin Anti-Xa Level POC ABG pH ABG pH POC ABG pCO2 POC ABG pO2 ABG pO2 ABG HCO3 ABG O2 Saturation ABG Base Excess ABG Hemoglobin Oxyhemoglobin Sodium 131 L Potassium Chloride 90.7 L Carbon Dioxide 21 L BUN 69 H Creatinine 5.7 H Glucose 170 H POC Glucose 128 H Lactic Acid Calcium 6.1 L D Ionized Calcium Phosphorus Magnesium Iron TIBC Ferritin Total Bilirubin 9.50 H Direct Bilirubin AST 308 H ALT 124 H Alkaline Phosphatase 327 H Total Creatine Kinase 09487 H CK-MB (CK-2) Troponin T C-Reactive Protein Total Protein 5.7 L Albumin 2.6 L Triglycerides LDL Cholesterol Direct HDL Cholesterol Free T4 PTH Intact Urine WBC (Auto) Urine Creatinine Salicylates Acetaminophen Crossmatch 03/21/19 03/21/19 03/21/19 05:17 05:39 08:29 WBC RBC Hgb Hct MCV RDW Plt Count Lymph % (Auto) Jones % (Auto) Lymph # Jones # Seg Neutrophils % Seg Neuts % (Manual) Lymphocytes % (Manual) Monocytes % (Manual) Nucleated RBC % Seg Neutrophils # Seg Neutrophils # Man Lymphocytes # (Manual) Monocytes # (Manual) PT INR D-Dimer Heparin Anti-Xa Level POC ABG pH ABG pH POC ABG pCO2 POC ABG pO2 209 H ABG pO2 ABG HCO3 ABG O2 Saturation ABG Base Excess ABG Hemoglobin Oxyhemoglobin Sodium Potassium Chloride Carbon Dioxide BUN Creatinine Glucose POC Glucose 145 H Lactic Acid Calcium Ionized Calcium Phosphorus Magnesium Iron TIBC Ferritin Total Bilirubin Direct Bilirubin AST ALT Alkaline Phosphatase Total Creatine Kinase 61603 H CK-MB (CK-2) Troponin T C-Reactive Protein Total Protein Albumin Triglycerides LDL Cholesterol Direct HDL Cholesterol Free T4 PTH Intact Urine WBC (Auto) Urine Creatinine Salicylates Acetaminophen Crossmatch 03/21/19 03/21/19 03/21/19 08:29 11:43 12:00 WBC RBC Hgb Hct MCV RDW Plt Count Lymph % (Auto) Jones % (Auto) Lymph # Jones # Seg Neutrophils % Seg Neuts % (Manual) Lymphocytes % (Manual) Monocytes % (Manual) Nucleated RBC % Seg Neutrophils # Seg Neutrophils # Man Lymphocytes # (Manual) Monocytes # (Manual) PT INR D-Dimer Heparin Anti-Xa Level POC ABG pH ABG pH POC ABG pCO2 POC ABG pO2 ABG pO2 ABG HCO3 ABG O2 Saturation ABG Base Excess ABG Hemoglobin Oxyhemoglobin Sodium Potassium Chloride Carbon Dioxide BUN Creatinine Glucose POC Glucose 123 H Lactic Acid 2.60 H* 2.20 H* Calcium Ionized Calcium Phosphorus Magnesium Iron TIBC Ferritin Total Bilirubin Direct Bilirubin AST ALT Alkaline Phosphatase Total Creatine Kinase CK-MB (CK-2) Troponin T C-Reactive Protein Total Protein Albumin Triglycerides LDL Cholesterol Direct HDL Cholesterol Free T4 PTH Intact Urine WBC (Auto) Urine Creatinine Salicylates Acetaminophen Crossmatch 03/21/19 03/21/19 03/21/19 14:11 18:28 19:32 WBC RBC Hgb Hct MCV RDW Plt Count Lymph % (Auto) Jones % (Auto) Lymph # Jones # Seg Neutrophils % Seg Neuts % (Manual) Lymphocytes % (Manual) Monocytes % (Manual) Nucleated RBC % Seg Neutrophils # Seg Neutrophils # Man Lymphocytes # (Manual) Monocytes # (Manual) PT INR D-Dimer Heparin Anti-Xa Level POC ABG pH 7.293 L ABG pH POC ABG pCO2 POC ABG pO2 ABG pO2 ABG HCO3 ABG O2 Saturation ABG Base Excess ABG Hemoglobin Oxyhemoglobin Sodium Potassium Chloride Carbon Dioxide BUN Creatinine Glucose POC Glucose 153 H Lactic Acid 2.10 H* Calcium Ionized Calcium Phosphorus Magnesium Iron TIBC Ferritin Total Bilirubin Direct Bilirubin AST ALT Alkaline Phosphatase Total Creatine Kinase CK-MB (CK-2) Troponin T C-Reactive Protein Total Protein Albumin Triglycerides LDL Cholesterol Direct HDL Cholesterol Free T4 PTH Intact Urine WBC (Auto) Urine Creatinine Salicylates Acetaminophen Crossmatch 03/21/19 03/22/19 03/22/19 23:38 05:08 05:51 WBC RBC Hgb Hct MCV RDW Plt Count Lymph % (Auto) Jones % (Auto) Lymph # Jones # Seg Neutrophils % Seg Neuts % (Manual) Lymphocytes % (Manual) Monocytes % (Manual) Nucleated RBC % Seg Neutrophils # Seg Neutrophils # Man Lymphocytes # (Manual) Monocytes # (Manual) PT INR D-Dimer Heparin Anti-Xa Level POC ABG pH 7.283 L ABG pH POC ABG pCO2 POC ABG pO2 53 L ABG pO2 ABG HCO3 ABG O2 Saturation ABG Base Excess ABG Hemoglobin Oxyhemoglobin Sodium Potassium Chloride Carbon Dioxide BUN Creatinine Glucose POC Glucose 149 H 131 H Lactic Acid Calcium Ionized Calcium Phosphorus Magnesium Iron TIBC Ferritin Total Bilirubin Direct Bilirubin AST ALT Alkaline Phosphatase Total Creatine Kinase CK-MB (CK-2) Troponin T C-Reactive Protein Total Protein Albumin Triglycerides LDL Cholesterol Direct HDL Cholesterol Free T4 PTH Intact Urine WBC (Auto) Urine Creatinine Salicylates Acetaminophen Crossmatch 03/22/19 03/22/19 03/22/19 08:00 08:00 18:19 WBC 36.7 H RBC Hgb 11.0 L Hct 33.5 L MCV RDW 15.5 H Plt Count 43 L Lymph % (Auto) Jones % (Auto) Lymph # Jones # Seg Neutrophils % Seg Neuts % (Manual) 87.0 H Lymphocytes % (Manual) 7.0 L Monocytes % (Manual) Nucleated RBC % Seg Neutrophils # Seg Neutrophils # Man 31.9 H Lymphocytes # (Manual) Monocytes # (Manual) PT INR D-Dimer Heparin Anti-Xa Level POC ABG pH ABG pH POC ABG pCO2 46.4 H POC ABG pO2 108 H ABG pO2 ABG HCO3 ABG O2 Saturation ABG Base Excess ABG Hemoglobin Oxyhemoglobin Sodium 132 L Potassium 5.6 H Chloride 89.6 L Carbon Dioxide 20 L BUN 101 H Creatinine 7.4 H Glucose 124 H POC Glucose Lactic Acid Calcium 5.2 L* Ionized Calcium Phosphorus Magnesium Iron TIBC Ferritin Total Bilirubin 2.80 H Direct Bilirubin AST 119 H ALT 86 H Alkaline Phosphatase 245 H Total Creatine Kinase CK-MB (CK-2) Troponin T C-Reactive Protein Total Protein 5.6 L Albumin 2.5 L Triglycerides LDL Cholesterol Direct HDL Cholesterol Free T4 PTH Intact Urine WBC (Auto) Urine Creatinine Salicylates Acetaminophen Crossmatch 03/22/19 03/23/19 03/23/19 20:37 04:49 05:28 WBC 35.9 H RBC Hgb 10.8 L Hct 33.2 L MCV RDW 15.5 H Plt Count 49 L Lymph % (Auto) Jones % (Auto) Lymph # Jones # Seg Neutrophils % Seg Neuts % (Manual) 81.0 H Lymphocytes % (Manual) 3.5 L Monocytes % (Manual) Nucleated RBC % Seg Neutrophils # Seg Neutrophils # Man 29.1 H Lymphocytes # (Manual) Monocytes # (Manual) 1.4 H PT INR D-Dimer Heparin Anti-Xa Level POC ABG pH 7.296 L ABG pH POC ABG pCO2 46.2 H POC ABG pO2 ABG pO2 ABG HCO3 ABG O2 Saturation ABG Base Excess ABG Hemoglobin Oxyhemoglobin Sodium 129 L Potassium 5.2 H Chloride 91.1 L Carbon Dioxide BUN 91 H Creatinine 6.6 H Glucose 190 H POC Glucose Lactic Acid Calcium 5.3 L* Ionized Calcium Phosphorus Magnesium Iron TIBC Ferritin Total Bilirubin 1.80 H Direct Bilirubin AST 80 H ALT 62 H Alkaline Phosphatase 209 H Total Creatine Kinase 9758 H CK-MB (CK-2) Troponin T C-Reactive Protein Total Protein 5.2 L Albumin 2.2 L Triglycerides LDL Cholesterol Direct HDL Cholesterol Free T4 PTH Intact Urine WBC (Auto) Urine Creatinine Salicylates Acetaminophen Crossmatch 03/23/19 03/23/19 03/23/19 05:28 05:31 11:33 WBC 29.7 H RBC 3.59 L Hgb 10.1 L Hct 31.1 L MCV RDW 15.4 H Plt Count 47 L Lymph % (Auto) Jones % (Auto) Lymph # Jones # Seg Neutrophils % Seg Neuts % (Manual) 89.0 H Lymphocytes % (Manual) 6.0 L Monocytes % (Manual) Nucleated RBC % 1.0 H Seg Neutrophils # Seg Neutrophils # Man 26.4 H Lymphocytes # (Manual) Monocytes # (Manual) PT INR D-Dimer Heparin Anti-Xa Level POC ABG pH ABG pH POC ABG pCO2 POC ABG pO2 ABG pO2 ABG HCO3 ABG O2 Saturation ABG Base Excess ABG Hemoglobin Oxyhemoglobin Sodium Potassium Chloride Carbon Dioxide BUN Creatinine Glucose POC Glucose 122 H 113 H Lactic Acid Calcium Ionized Calcium Phosphorus Magnesium Iron TIBC Ferritin Total Bilirubin Direct Bilirubin AST ALT Alkaline Phosphatase Total Creatine Kinase CK-MB (CK-2) Troponin T C-Reactive Protein Total Protein Albumin Triglycerides LDL Cholesterol Direct HDL Cholesterol Free T4 PTH Intact Urine WBC (Auto) Urine Creatinine Salicylates Acetaminophen Crossmatch 03/23/19 03/24/19 03/24/19 17:47 00:00 04:50 WBC 35.0 H RBC Hgb 10.4 L Hct 32.4 L MCV RDW Plt Count 60 L Lymph % (Auto) Jones % (Auto) Lymph # Jones # Seg Neutrophils % Seg Neuts % (Manual) 93.0 H Lymphocytes % (Manual) 5.0 L Monocytes % (Manual) Nucleated RBC % 7.0 H Seg Neutrophils # Seg Neutrophils # Man 32.6 H Lymphocytes # (Manual) Monocytes # (Manual) PT INR D-Dimer Heparin Anti-Xa Level POC ABG pH ABG pH POC ABG pCO2 POC ABG pO2 ABG pO2 ABG HCO3 ABG O2 Saturation ABG Base Excess ABG Hemoglobin Oxyhemoglobin Sodium Potassium Chloride Carbon Dioxide BUN Creatinine Glucose POC Glucose 111 H 108 H Lactic Acid Calcium Ionized Calcium Phosphorus Magnesium Iron TIBC Ferritin Total Bilirubin Direct Bilirubin AST ALT Alkaline Phosphatase Total Creatine Kinase CK-MB (CK-2) Troponin T C-Reactive Protein Total Protein Albumin Triglycerides LDL Cholesterol Direct HDL Cholesterol Free T4 PTH Intact Urine WBC (Auto) Urine Creatinine Salicylates Acetaminophen Crossmatch 03/24/19 03/24/19 03/24/19 04:50 05:06 12:55 WBC RBC Hgb Hct MCV RDW Plt Count Lymph % (Auto) Jones % (Auto) Lymph # Jones # Seg Neutrophils % Seg Neuts % (Manual) Lymphocytes % (Manual) Monocytes % (Manual) Nucleated RBC % Seg Neutrophils # Seg Neutrophils # Man Lymphocytes # (Manual) Monocytes # (Manual) PT INR D-Dimer Heparin Anti-Xa Level POC ABG pH ABG pH POC ABG pCO2 POC ABG pO2 ABG pO2 ABG HCO3 ABG O2 Saturation ABG Base Excess ABG Hemoglobin Oxyhemoglobin Sodium 134 L Potassium 5.1 H Chloride 95.3 L Carbon Dioxide 21 L BUN 85 H Creatinine 6.4 H Glucose 109 H POC Glucose 112 H 110 H Lactic Acid Calcium 5.8 L* Ionized Calcium Phosphorus Magnesium Iron TIBC Ferritin Total Bilirubin Direct Bilirubin AST ALT Alkaline Phosphatase Total Creatine Kinase 5747 H CK-MB (CK-2) Troponin T C-Reactive Protein Total Protein Albumin Triglycerides LDL Cholesterol Direct HDL Cholesterol Free T4 PTH Intact Urine WBC (Auto) Urine Creatinine Salicylates Acetaminophen Crossmatch 03/24/19 03/25/19 03/25/19 23:29 05:00 05:00 WBC RBC Hgb Hct MCV RDW Plt Count Lymph % (Auto) Jones % (Auto) Lymph # Jones # Seg Neutrophils % Seg Neuts % (Manual) Lymphocytes % (Manual) Monocytes % (Manual) Nucleated RBC % Seg Neutrophils # Seg Neutrophils # Man Lymphocytes # (Manual) Monocytes # (Manual) PT INR D-Dimer Heparin Anti-Xa Level POC ABG pH ABG pH POC ABG pCO2 POC ABG pO2 ABG pO2 ABG HCO3 ABG O2 Saturation ABG Base Excess ABG Hemoglobin Oxyhemoglobin Sodium 133 L Potassium Chloride 94.0 L Carbon Dioxide 21 L BUN 81 H Creatinine 6.4 H Glucose POC Glucose 109 H Lactic Acid Calcium 5.5 L* Ionized Calcium Phosphorus Magnesium Iron TIBC Ferritin Total Bilirubin Direct Bilirubin AST 80 H ALT Alkaline Phosphatase 202 H Total Creatine Kinase 3589 H CK-MB (CK-2) Troponin T C-Reactive Protein Total Protein 5.3 L Albumin 2.4 L Triglycerides LDL Cholesterol Direct HDL Cholesterol Free T4 PTH Intact 329.9 H Urine WBC (Auto) Urine Creatinine Salicylates Acetaminophen Crossmatch 03/25/19 03/25/19 03/26/19 05:00 06:30 04:30 WBC 23.3 H RBC 3.61 L Hgb 10.2 L Hct 31.2 L MCV RDW Plt Count 57 L Lymph % (Auto) Jones % (Auto) Lymph # Jones # Seg Neutrophils % Seg Neuts % (Manual) 92.0 H Lymphocytes % (Manual) 6.0 L Monocytes % (Manual) Nucleated RBC % Seg Neutrophils # Seg Neutrophils # Man 21.4 H Lymphocytes # (Manual) Monocytes # (Manual) PT INR D-Dimer Heparin Anti-Xa Level POC ABG pH ABG pH 7.326 L POC ABG pCO2 POC ABG pO2 ABG pO2 109.5 H 137.4 H ABG HCO3 18.8 L 18.6 L ABG O2 Saturation ABG Base Excess -4.4 L -6.8 L ABG Hemoglobin 10.1 L 9.9 L Oxyhemoglobin Sodium Potassium Chloride Carbon Dioxide BUN Creatinine Glucose POC Glucose Lactic Acid Calcium Ionized Calcium Phosphorus Magnesium Iron TIBC Ferritin Total Bilirubin Direct Bilirubin AST ALT Alkaline Phosphatase Total Creatine Kinase CK-MB (CK-2) Troponin T C-Reactive Protein Total Protein Albumin Triglycerides LDL Cholesterol Direct HDL Cholesterol Free T4 PTH Intact Urine WBC (Auto) Urine Creatinine Salicylates Acetaminophen Crossmatch 03/26/19 03/26/19 03/26/19 23:22 Unknown Unknown WBC 19.5 H RBC 3.44 L Hgb 9.8 L Hct 29.9 L MCV RDW Plt Count 85 L Lymph % (Auto) Jones % (Auto) Lymph # Jones # Seg Neutrophils % Seg Neuts % (Manual) 95.0 H Lymphocytes % (Manual) 3.0 L Monocytes % (Manual) Nucleated RBC % Seg Neutrophils # Seg Neutrophils # Man 18.5 H Lymphocytes # (Manual) 0.6 L Monocytes # (Manual) PT INR D-Dimer Heparin Anti-Xa Level POC ABG pH ABG pH POC ABG pCO2 POC ABG pO2 ABG pO2 ABG HCO3 ABG O2 Saturation ABG Base Excess ABG Hemoglobin Oxyhemoglobin Sodium 135 L Potassium 5.2 H D Chloride 92.2 L Carbon Dioxide 18 L BUN 109 H Creatinine 8.5 H Glucose 117 H POC Glucose 69 L Lactic Acid Calcium 4.5 L* D Ionized Calcium Phosphorus Magnesium Iron TIBC Ferritin Total Bilirubin Direct Bilirubin AST ALT Alkaline Phosphatase Total Creatine Kinase 4527 H CK-MB (CK-2) Troponin T C-Reactive Protein Total Protein Albumin Triglycerides LDL Cholesterol Direct HDL Cholesterol Free T4 PTH Intact Urine WBC (Auto) Urine Creatinine Salicylates Acetaminophen Crossmatch 03/27/19 03/27/19 03/27/19 04:30 04:30 09:00 WBC 19.2 H RBC 3.42 L Hgb 9.9 L Hct 30.0 L MCV RDW Plt Count 84 L Lymph % (Auto) Jones % (Auto) Lymph # Jones # Seg Neutrophils % Seg Neuts % (Manual) Lymphocytes % (Manual) Monocytes % (Manual) Nucleated RBC % Seg Neutrophils # Seg Neutrophils # Man Lymphocytes # (Manual) Monocytes # (Manual) PT INR D-Dimer Heparin Anti-Xa Level POC ABG pH ABG pH POC ABG pCO2 POC ABG pO2 ABG pO2 ABG HCO3 ABG O2 Saturation ABG Base Excess ABG Hemoglobin Oxyhemoglobin Sodium 135 L Potassium Chloride 93.5 L Carbon Dioxide BUN 84 H Creatinine 7.1 H Glucose POC Glucose Lactic Acid Calcium 5.0 L* Ionized Calcium Phosphorus Magnesium Iron TIBC Ferritin Total Bilirubin Direct Bilirubin AST 78 H ALT Alkaline Phosphatase 135 H Total Creatine Kinase 4677 H CK-MB (CK-2) Troponin T C-Reactive Protein Total Protein 4.8 L Albumin 2.3 L Triglycerides 409 H LDL Cholesterol Direct HDL Cholesterol Free T4 PTH Intact Urine WBC (Auto) Urine Creatinine Salicylates Acetaminophen Crossmatch 03/27/19 03/27/19 03/27/19 12:37 14:15 14:15 WBC RBC Hgb 9.7 L Hct 29.5 L MCV RDW Plt Count 87 L Lymph % (Auto) Jones % (Auto) Lymph # Jones # Seg Neutrophils % Seg Neuts % (Manual) Lymphocytes % (Manual) Monocytes % (Manual) Nucleated RBC % Seg Neutrophils # Seg Neutrophils # Man Lymphocytes # (Manual) Monocytes # (Manual) PT 15.9 H INR 1.30 H D-Dimer Heparin Anti-Xa Level POC ABG pH ABG pH POC ABG pCO2 POC ABG pO2 ABG pO2 ABG HCO3 ABG O2 Saturation ABG Base Excess ABG Hemoglobin Oxyhemoglobin Sodium Potassium Chloride Carbon Dioxide BUN Creatinine Glucose POC Glucose 129 H Lactic Acid Calcium Ionized Calcium Phosphorus Magnesium Iron TIBC Ferritin Total Bilirubin Direct Bilirubin AST ALT Alkaline Phosphatase Total Creatine Kinase CK-MB (CK-2) Troponin T C-Reactive Protein Total Protein Albumin Triglycerides LDL Cholesterol Direct HDL Cholesterol Free T4 PTH Intact Urine WBC (Auto) Urine Creatinine Salicylates Acetaminophen Crossmatch 03/27/19 03/27/19 03/27/19 18:00 19:22 19:23 WBC RBC Hgb Hct MCV RDW Plt Count Lymph % (Auto) Jones % (Auto) Lymph # Jones # Seg Neutrophils % Seg Neuts % (Manual) Lymphocytes % (Manual) Monocytes % (Manual) Nucleated RBC % Seg Neutrophils # Seg Neutrophils # Man Lymphocytes # (Manual) Monocytes # (Manual) PT INR D-Dimer Heparin Anti-Xa Level < 0.10 L POC ABG pH ABG pH POC ABG pCO2 POC ABG pO2 ABG pO2 ABG HCO3 ABG O2 Saturation ABG Base Excess ABG Hemoglobin Oxyhemoglobin Sodium Potassium Chloride Carbon Dioxide BUN Creatinine Glucose POC Glucose 121 H Lactic Acid Calcium Ionized Calcium Phosphorus Magnesium Iron TIBC Ferritin Total Bilirubin Direct Bilirubin AST ALT Alkaline Phosphatase Total Creatine Kinase 4517 H CK-MB (CK-2) Troponin T C-Reactive Protein Total Protein Albumin Triglycerides LDL Cholesterol Direct HDL Cholesterol Free T4 PTH Intact Urine WBC (Auto) Urine Creatinine Salicylates Acetaminophen Crossmatch 03/27/19 03/27/19 03/28/19 22:10 23:52 03:49 WBC RBC Hgb Hct MCV RDW Plt Count Lymph % (Auto) Jones % (Auto) Lymph # Jones # Seg Neutrophils % Seg Neuts % (Manual) Lymphocytes % (Manual) Monocytes % (Manual) Nucleated RBC % Seg Neutrophils # Seg Neutrophils # Man Lymphocytes # (Manual) Monocytes # (Manual) PT INR D-Dimer Heparin Anti-Xa Level POC ABG pH 7.338 L ABG pH POC ABG pCO2 33.1 L POC ABG pO2 ABG pO2 ABG HCO3 ABG O2 Saturation ABG Base Excess ABG Hemoglobin Oxyhemoglobin Sodium Potassium Chloride Carbon Dioxide BUN Creatinine Glucose POC Glucose 113 H 117 H Lactic Acid Calcium Ionized Calcium Phosphorus Magnesium Iron TIBC Ferritin Total Bilirubin Direct Bilirubin AST ALT Alkaline Phosphatase Total Creatine Kinase CK-MB (CK-2) Troponin T C-Reactive Protein Total Protein Albumin Triglycerides LDL Cholesterol Direct HDL Cholesterol Free T4 PTH Intact Urine WBC (Auto) Urine Creatinine Salicylates Acetaminophen Crossmatch 03/28/19 03/28/19 03/28/19 05:13 05:13 06:18 WBC RBC Hgb Hct MCV RDW Plt Count Lymph % (Auto) Jones % (Auto) Lymph # Jones # Seg Neutrophils % Seg Neuts % (Manual) Lymphocytes % (Manual) Monocytes % (Manual) Nucleated RBC % Seg Neutrophils # Seg Neutrophils # Man Lymphocytes # (Manual) Monocytes # (Manual) PT INR D-Dimer Heparin Anti-Xa Level 0.23 L POC ABG pH ABG pH POC ABG pCO2 POC ABG pO2 ABG pO2 ABG HCO3 ABG O2 Saturation ABG Base Excess ABG Hemoglobin Oxyhemoglobin Sodium 135 L Potassium 5.5 H D Chloride 95.1 L Carbon Dioxide 16 L D BUN 129 H Creatinine 9.3 H Glucose 158 H POC Glucose 202 H Lactic Acid Calcium 4.0 L* D Ionized Calcium Phosphorus 12.40 H Magnesium Iron TIBC Ferritin Total Bilirubin Direct Bilirubin AST ALT Alkaline Phosphatase Total Creatine Kinase 4266 H CK-MB (CK-2) Troponin T C-Reactive Protein Total Protein Albumin Triglycerides LDL Cholesterol Direct HDL Cholesterol Free T4 PTH Intact Urine WBC (Auto) Urine Creatinine Salicylates Acetaminophen Crossmatch 03/28/19 03/28/19 03/28/19 08:25 10:00 12:00 WBC RBC Hgb 4.9 L* D Hct 15.4 L* D MCV RDW Plt Count Lymph % (Auto) Jones % (Auto) Lymph # Jones # Seg Neutrophils % Seg Neuts % (Manual) Lymphocytes % (Manual) Monocytes % (Manual) Nucleated RBC % Seg Neutrophils # Seg Neutrophils # Man Lymphocytes # (Manual) Monocytes # (Manual) PT 17.9 H INR 1.52 H D-Dimer 4845.98 H Heparin Anti-Xa Level POC ABG pH ABG pH POC ABG pCO2 POC ABG pO2 ABG pO2 ABG HCO3 ABG O2 Saturation ABG Base Excess ABG Hemoglobin Oxyhemoglobin Sodium Potassium Chloride Carbon Dioxide BUN Creatinine Glucose POC Glucose Lactic Acid Calcium Ionized Calcium Phosphorus Magnesium Iron TIBC Ferritin Total Bilirubin Direct Bilirubin AST ALT Alkaline Phosphatase Total Creatine Kinase CK-MB (CK-2) Troponin T C-Reactive Protein Total Protein Albumin Triglycerides LDL Cholesterol Direct HDL Cholesterol Free T4 PTH Intact Urine WBC (Auto) Urine Creatinine Salicylates Acetaminophen Crossmatch See Detail 03/28/19 03/28/19 03/28/19 12:28 14:10 17:43 WBC RBC Hgb 5.9 L* Hct 18.3 L* MCV RDW Plt Count Lymph % (Auto) Jones % (Auto) Lymph # Jones # Seg Neutrophils % Seg Neuts % (Manual) Lymphocytes % (Manual) Monocytes % (Manual) Nucleated RBC % Seg Neutrophils # Seg Neutrophils # Man Lymphocytes # (Manual) Monocytes # (Manual) PT INR D-Dimer Heparin Anti-Xa Level POC ABG pH ABG pH POC ABG pCO2 POC ABG pO2 ABG pO2 ABG HCO3 ABG O2 Saturation ABG Base Excess ABG Hemoglobin Oxyhemoglobin Sodium Potassium Chloride Carbon Dioxide BUN Creatinine Glucose POC Glucose 153 H 159 H Lactic Acid Calcium Ionized Calcium Phosphorus Magnesium Iron TIBC Ferritin Total Bilirubin Direct Bilirubin AST ALT Alkaline Phosphatase Total Creatine Kinase CK-MB (CK-2) Troponin T C-Reactive Protein Total Protein Albumin Triglycerides LDL Cholesterol Direct HDL Cholesterol Free T4 PTH Intact Urine WBC (Auto) Urine Creatinine Salicylates Acetaminophen Crossmatch 03/28/19 03/28/19 03/28/19 18:10 Unknown 23:59 WBC 24.8 H RBC 3.42 L Hgb 10.2 L D Hct 31.1 L D MCV RDW 15.4 H Plt Count 54 L Lymph % (Auto) Jones % (Auto) Lymph # Jones # Seg Neutrophils % Seg Neuts % (Manual) 91.0 H Lymphocytes % (Manual) 8.0 L Monocytes % (Manual) Nucleated RBC % Seg Neutrophils # Seg Neutrophils # Man 22.6 H Lymphocytes # (Manual) Monocytes # (Manual) PT INR D-Dimer Heparin Anti-Xa Level POC ABG pH ABG pH POC ABG pCO2 POC ABG pO2 ABG pO2 ABG HCO3 ABG O2 Saturation ABG Base Excess ABG Hemoglobin Oxyhemoglobin Sodium Potassium 5.7 H Chloride Carbon Dioxide BUN Creatinine Glucose POC Glucose 107 H Lactic Acid Calcium Ionized Calcium Phosphorus Magnesium Iron TIBC Ferritin Total Bilirubin Direct Bilirubin AST ALT Alkaline Phosphatase Total Creatine Kinase CK-MB (CK-2) Troponin T C-Reactive Protein Total Protein Albumin Triglycerides LDL Cholesterol Direct HDL Cholesterol Free T4 PTH Intact Urine WBC (Auto) Urine Creatinine Salicylates Acetaminophen Crossmatch 03/29/19 03/29/19 03/29/19 04:29 05:46 06:22 WBC RBC Hgb 8.6 L Hct 25.7 L MCV RDW Plt Count 93 L Lymph % (Auto) Jones % (Auto) Lymph # Jones # Seg Neutrophils % Seg Neuts % (Manual) Lymphocytes % (Manual) Monocytes % (Manual) Nucleated RBC % Seg Neutrophils # Seg Neutrophils # Man Lymphocytes # (Manual) Monocytes # (Manual) PT INR D-Dimer Heparin Anti-Xa Level POC ABG pH ABG pH POC ABG pCO2 32.2 L POC ABG pO2 ABG pO2 ABG HCO3 ABG O2 Saturation ABG Base Excess ABG Hemoglobin Oxyhemoglobin Sodium Potassium Chloride Carbon Dioxide BUN Creatinine Glucose POC Glucose 113 H Lactic Acid Calcium Ionized Calcium Phosphorus Magnesium Iron TIBC Ferritin Total Bilirubin Direct Bilirubin AST ALT Alkaline Phosphatase Total Creatine Kinase CK-MB (CK-2) Troponin T C-Reactive Protein Total Protein Albumin Triglycerides LDL Cholesterol Direct HDL Cholesterol Free T4 PTH Intact Urine WBC (Auto) Urine Creatinine Salicylates Acetaminophen Crossmatch 03/29/19 03/29/19 03/29/19 06:22 06:22 06:22 WBC 23.2 H RBC 2.91 L Hgb 8.6 L Hct 25.8 L MCV RDW Plt Count 91 L Lymph % (Auto) Jones % (Auto) Lymph # Jones # Seg Neutrophils % Seg Neuts % (Manual) Lymphocytes % (Manual) Monocytes % (Manual) Nucleated RBC % Seg Neutrophils # Seg Neutrophils # Man Lymphocytes # (Manual) Monocytes # (Manual) PT INR D-Dimer Heparin Anti-Xa Level POC ABG pH ABG pH POC ABG pCO2 POC ABG pO2 ABG pO2 ABG HCO3 ABG O2 Saturation ABG Base Excess ABG Hemoglobin Oxyhemoglobin Sodium 133 L Potassium Chloride 93.8 L Carbon Dioxide 18 L BUN 109 H Creatinine 7.4 H Glucose 124 H POC Glucose Lactic Acid Calcium 4.6 L* Ionized Calcium Phosphorus Magnesium Iron TIBC Ferritin Total Bilirubin Direct Bilirubin AST ALT Alkaline Phosphatase Total Creatine Kinase 3401 H CK-MB (CK-2) Troponin T C-Reactive Protein Total Protein Albumin Triglycerides 309 H LDL Cholesterol Direct HDL Cholesterol Free T4 PTH Intact Urine WBC (Auto) Urine Creatinine Salicylates Acetaminophen Crossmatch 03/29/19 03/29/19 03/29/19 11:48 11:48 18:24 WBC RBC Hgb 7.8 L Hct 23.2 L MCV RDW Plt Count Lymph % (Auto) Jones % (Auto) Lymph # Jones # Seg Neutrophils % Seg Neuts % (Manual) Lymphocytes % (Manual) Monocytes % (Manual) Nucleated RBC % Seg Neutrophils # Seg Neutrophils # Man Lymphocytes # (Manual) Monocytes # (Manual) PT 15.3 H INR 1.24 H D-Dimer Heparin Anti-Xa Level POC ABG pH ABG pH POC ABG pCO2 POC ABG pO2 ABG pO2 ABG HCO3 ABG O2 Saturation ABG Base Excess ABG Hemoglobin Oxyhemoglobin Sodium Potassium Chloride Carbon Dioxide BUN Creatinine Glucose POC Glucose 122 H Lactic Acid Calcium Ionized Calcium Phosphorus Magnesium Iron TIBC Ferritin Total Bilirubin Direct Bilirubin AST ALT Alkaline Phosphatase Total Creatine Kinase CK-MB (CK-2) Troponin T C-Reactive Protein Total Protein Albumin Triglycerides LDL Cholesterol Direct HDL Cholesterol Free T4 PTH Intact Urine WBC (Auto) Urine Creatinine Salicylates Acetaminophen Crossmatch 03/30/19 03/30/19 03/30/19 00:40 04:31 05:04 WBC RBC Hgb 7.6 L Hct 23.0 L MCV RDW Plt Count Lymph % (Auto) Jones % (Auto) Lymph # Jones # Seg Neutrophils % Seg Neuts % (Manual) Lymphocytes % (Manual) Monocytes % (Manual) Nucleated RBC % Seg Neutrophils # Seg Neutrophils # Man Lymphocytes # (Manual) Monocytes # (Manual) PT INR D-Dimer Heparin Anti-Xa Level POC ABG pH 7.346 L ABG pH POC ABG pCO2 POC ABG pO2 62 L ABG pO2 ABG HCO3 ABG O2 Saturation ABG Base Excess ABG Hemoglobin Oxyhemoglobin Sodium Potassium Chloride Carbon Dioxide BUN 79 H Creatinine 6.4 H Glucose POC Glucose Lactic Acid Calcium 6.1 L D Ionized Calcium Phosphorus Magnesium Iron TIBC Ferritin Total Bilirubin Direct Bilirubin AST ALT Alkaline Phosphatase Total Creatine Kinase CK-MB (CK-2) Troponin T C-Reactive Protein Total Protein Albumin Triglycerides LDL Cholesterol Direct HDL Cholesterol Free T4 PTH Intact Urine WBC (Auto) Urine Creatinine Salicylates Acetaminophen Crossmatch 03/30/19 03/30/19 03/30/19 08:45 12:09 22:43 WBC 14.3 H RBC 2.33 L Hgb 7.0 L 7.4 L Hct 21.0 L 22.3 L MCV RDW 15.6 H Plt Count 135 L Lymph % (Auto) Jones % (Auto) Lymph # Jones # Seg Neutrophils % Seg Neuts % (Manual) Lymphocytes % (Manual) Monocytes % (Manual) Nucleated RBC % Seg Neutrophils # Seg Neutrophils # Man Lymphocytes # (Manual) Monocytes # (Manual) PT INR D-Dimer Heparin Anti-Xa Level POC ABG pH ABG pH POC ABG pCO2 POC ABG pO2 ABG pO2 ABG HCO3 ABG O2 Saturation ABG Base Excess ABG Hemoglobin Oxyhemoglobin Sodium Potassium Chloride Carbon Dioxide BUN Creatinine Glucose POC Glucose Lactic Acid Calcium Ionized Calcium 3.7 L Phosphorus Magnesium Iron TIBC Ferritin Total Bilirubin Direct Bilirubin AST ALT Alkaline Phosphatase Total Creatine Kinase CK-MB (CK-2) Troponin T C-Reactive Protein Total Protein Albumin Triglycerides LDL Cholesterol Direct HDL Cholesterol Free T4 PTH Intact Urine WBC (Auto) Urine Creatinine Salicylates Acetaminophen Crossmatch 03/30/19 03/30/19 03/31/19 23:38 Unknown 04:44 WBC 11.5 H RBC 2.40 L Hgb 7.3 L Hct 21.9 L MCV RDW 15.4 H Plt Count Lymph % (Auto) 10.6 L Jones % (Auto) Lymph # Jones # Seg Neutrophils % 81.7 H Seg Neuts % (Manual) Lymphocytes % (Manual) Monocytes % (Manual) Nucleated RBC % Seg Neutrophils # 9.4 H Seg Neutrophils # Man Lymphocytes # (Manual) Monocytes # (Manual) PT INR D-Dimer Heparin Anti-Xa Level POC ABG pH ABG pH POC ABG pCO2 POC ABG pO2 ABG pO2 ABG HCO3 ABG O2 Saturation ABG Base Excess ABG Hemoglobin Oxyhemoglobin Sodium Potassium Chloride Carbon Dioxide BUN Creatinine Glucose POC Glucose 155 H Lactic Acid Calcium Ionized Calcium Phosphorus Magnesium Iron TIBC Ferritin Total Bilirubin Direct Bilirubin 0.4 H AST 63 H ALT Alkaline Phosphatase Total Creatine Kinase CK-MB (CK-2) Troponin T C-Reactive Protein Total Protein 4.9 L Albumin 2.2 L Triglycerides LDL Cholesterol Direct HDL Cholesterol Free T4 PTH Intact Urine WBC (Auto) Urine Creatinine Salicylates Acetaminophen Crossmatch 03/31/19 03/31/19 03/31/19 04:44 05:44 08:20 WBC RBC Hgb Hct MCV RDW Plt Count Lymph % (Auto) Jones % (Auto) Lymph # Jones # Seg Neutrophils % Seg Neuts % (Manual) Lymphocytes % (Manual) Monocytes % (Manual) Nucleated RBC % Seg Neutrophils # Seg Neutrophils # Man Lymphocytes # (Manual) Monocytes # (Manual) PT INR D-Dimer Heparin Anti-Xa Level POC ABG pH ABG pH POC ABG pCO2 53.5 H POC ABG pO2 62 L ABG pO2 ABG HCO3 ABG O2 Saturation ABG Base Excess ABG Hemoglobin Oxyhemoglobin Sodium 135 L Potassium Chloride 96.7 L Carbon Dioxide 19 L BUN 94 H Creatinine 7.8 H Glucose POC Glucose Lactic Acid Calcium 5.3 L* Ionized Calcium Phosphorus 8.20 H Magnesium Iron TIBC Ferritin Total Bilirubin Direct Bilirubin 0.4 H AST 60 H ALT Alkaline Phosphatase Total Creatine Kinase CK-MB (CK-2) Troponin T C-Reactive Protein Total Protein 4.8 L Albumin 2.1 L Triglycerides LDL Cholesterol Direct HDL Cholesterol Free T4 PTH Intact Urine WBC (Auto) Urine Creatinine Salicylates Acetaminophen Crossmatch 03/31/19 04/01/19 04/01/19 22:14 04:27 04:27 WBC RBC 2.60 L Hgb 8.0 L Hct 24.1 L MCV RDW 15.7 H Plt Count Lymph % (Auto) 7.9 L Jones % (Auto) Lymph # 0.7 L Jones # Seg Neutrophils % 83.6 H Seg Neuts % (Manual) Lymphocytes % (Manual) Monocytes % (Manual) Nucleated RBC % Seg Neutrophils # Seg Neutrophils # Man Lymphocytes # (Manual) Monocytes # (Manual) PT INR D-Dimer Heparin Anti-Xa Level POC ABG pH 7.286 L ABG pH POC ABG pCO2 54.7 H POC ABG pO2 179 H ABG pO2 ABG HCO3 ABG O2 Saturation ABG Base Excess ABG Hemoglobin Oxyhemoglobin Sodium Potassium Chloride Carbon Dioxide BUN 68 H Creatinine 6.6 H Glucose POC Glucose Lactic Acid Calcium 6.5 L D Ionized Calcium Phosphorus 7.30 H Magnesium Iron TIBC Ferritin Total Bilirubin Direct Bilirubin AST ALT Alkaline Phosphatase Total Creatine Kinase 1652 H CK-MB (CK-2) Troponin T C-Reactive Protein Total Protein Albumin Triglycerides LDL Cholesterol Direct HDL Cholesterol Free T4 PTH Intact Urine WBC (Auto) Urine Creatinine Salicylates Acetaminophen Crossmatch 04/01/19 04/01/19 04/01/19 05:14 05:37 18:37 WBC RBC Hgb Hct MCV RDW Plt Count Lymph % (Auto) Jones % (Auto) Lymph # Jones # Seg Neutrophils % Seg Neuts % (Manual) Lymphocytes % (Manual) Monocytes % (Manual) Nucleated RBC % Seg Neutrophils # Seg Neutrophils # Man Lymphocytes # (Manual) Monocytes # (Manual) PT INR D-Dimer Heparin Anti-Xa Level POC ABG pH 7.283 L ABG pH POC ABG pCO2 53.4 H POC ABG pO2 241 H ABG pO2 ABG HCO3 ABG O2 Saturation ABG Base Excess ABG Hemoglobin Oxyhemoglobin Sodium Potassium Chloride Carbon Dioxide BUN Creatinine Glucose POC Glucose 111 H 119 H Lactic Acid Calcium Ionized Calcium Phosphorus Magnesium Iron TIBC Ferritin Total Bilirubin Direct Bilirubin AST ALT Alkaline Phosphatase Total Creatine Kinase CK-MB (CK-2) Troponin T C-Reactive Protein Total Protein Albumin Triglycerides LDL Cholesterol Direct HDL Cholesterol Free T4 PTH Intact Urine WBC (Auto) Urine Creatinine Salicylates Acetaminophen Crossmatch 04/01/19 04/02/19 04/02/19 21:28 04:40 05:03 WBC RBC 2.36 L Hgb 7.2 L Hct 21.9 L MCV RDW 16.0 H Plt Count Lymph % (Auto) 10.8 L Jones % (Auto) Lymph # 0.8 L Jones # Seg Neutrophils % 80.3 H Seg Neuts % (Manual) Lymphocytes % (Manual) Monocytes % (Manual) Nucleated RBC % Seg Neutrophils # Seg Neutrophils # Man Lymphocytes # (Manual) Monocytes # (Manual) PT INR D-Dimer Heparin Anti-Xa Level POC ABG pH 7.299 L 7.300 L ABG pH POC ABG pCO2 48.2 H 45.2 H POC ABG pO2 133 H 107 H ABG pO2 ABG HCO3 ABG O2 Saturation ABG Base Excess ABG Hemoglobin Oxyhemoglobin Sodium Potassium Chloride Carbon Dioxide BUN Creatinine Glucose POC Glucose Lactic Acid Calcium Ionized Calcium Phosphorus Magnesium Iron TIBC Ferritin Total Bilirubin Direct Bilirubin AST ALT Alkaline Phosphatase Total Creatine Kinase CK-MB (CK-2) Troponin T C-Reactive Protein Total Protein Albumin Triglycerides LDL Cholesterol Direct HDL Cholesterol Free T4 PTH Intact Urine WBC (Auto) Urine Creatinine Salicylates Acetaminophen Crossmatch 04/02/19 04/02/19 04/02/19 05:03 05:03 12:15 WBC RBC Hgb 7.4 L Hct 22.6 L MCV RDW Plt Count Lymph % (Auto) Jones % (Auto) Lymph # Jones # Seg Neutrophils % Seg Neuts % (Manual) Lymphocytes % (Manual) Monocytes % (Manual) Nucleated RBC % Seg Neutrophils # Seg Neutrophils # Man Lymphocytes # (Manual) Monocytes # (Manual) PT INR D-Dimer Heparin Anti-Xa Level POC ABG pH ABG pH POC ABG pCO2 POC ABG pO2 ABG pO2 ABG HCO3 ABG O2 Saturation ABG Base Excess ABG Hemoglobin Oxyhemoglobin Sodium 136 L Potassium Chloride 97.8 L Carbon Dioxide 18 L BUN 82 H Creatinine 8.2 H Glucose POC Glucose Lactic Acid Calcium 6.7 L Ionized Calcium Phosphorus 7.50 H Magnesium Iron 26 L TIBC 138 L Ferritin 607.0 H Total Bilirubin Direct Bilirubin AST ALT Alkaline Phosphatase Total Creatine Kinase CK-MB (CK-2) Troponin T C-Reactive Protein Total Protein Albumin Triglycerides LDL Cholesterol Direct HDL Cholesterol Free T4 PTH Intact Urine WBC (Auto) Urine Creatinine Salicylates Acetaminophen Crossmatch 04/02/19 04/02/19 04/03/19 16:34 17:14 04:18 WBC RBC Hgb Hct MCV RDW Plt Count Lymph % (Auto) Jones % (Auto) Lymph # Jones # Seg Neutrophils % Seg Neuts % (Manual) Lymphocytes % (Manual) Monocytes % (Manual) Nucleated RBC % Seg Neutrophils # Seg Neutrophils # Man Lymphocytes # (Manual) Monocytes # (Manual) PT INR D-Dimer Heparin Anti-Xa Level POC ABG pH ABG pH POC ABG pCO2 POC ABG pO2 146 H ABG pO2 ABG HCO3 ABG O2 Saturation ABG Base Excess ABG Hemoglobin Oxyhemoglobin Sodium Potassium Chloride Carbon Dioxide BUN Creatinine Glucose POC Glucose 108 H Lactic Acid Calcium Ionized Calcium Phosphorus Magnesium Iron TIBC Ferritin Total Bilirubin Direct Bilirubin AST ALT Alkaline Phosphatase Total Creatine Kinase CK-MB (CK-2) Troponin T C-Reactive Protein Total Protein Albumin Triglycerides LDL Cholesterol Direct HDL Cholesterol Free T4 PTH Intact Urine WBC (Auto) Urine Creatinine Salicylates Acetaminophen Crossmatch See Detail 04/03/19 04/03/19 04/03/19 04:25 08:30 18:24 WBC RBC 2.40 L Hgb 7.3 L Hct 21.9 L MCV RDW Plt Count Lymph % (Auto) Jones % (Auto) 7.7 H Lymph # 0.9 L Jones # Seg Neutrophils % 74.6 H Seg Neuts % (Manual) Lymphocytes % (Manual) Monocytes % (Manual) Nucleated RBC % Seg Neutrophils # Seg Neutrophils # Man Lymphocytes # (Manual) Monocytes # (Manual) PT INR D-Dimer Heparin Anti-Xa Level POC ABG pH ABG pH POC ABG pCO2 POC ABG pO2 ABG pO2 ABG HCO3 ABG O2 Saturation ABG Base Excess ABG Hemoglobin Oxyhemoglobin Sodium 136 L Potassium Chloride 97.0 L Carbon Dioxide BUN 58 H Creatinine 7.3 H Glucose POC Glucose 106 H Lactic Acid Calcium 7.5 L Ionized Calcium Phosphorus 5.80 H D Magnesium Iron TIBC Ferritin Total Bilirubin Direct Bilirubin AST ALT Alkaline Phosphatase Total Creatine Kinase CK-MB (CK-2) Troponin T C-Reactive Protein Total Protein Albumin Triglycerides LDL Cholesterol Direct HDL Cholesterol Free T4 PTH Intact Urine WBC (Auto) Urine Creatinine Salicylates Acetaminophen Crossmatch 04/03/19 04/04/19 04/04/19 23:43 04:47 04:47 WBC RBC 2.72 L Hgb 8.3 L Hct 24.7 L MCV RDW 15.6 H Plt Count Lymph % (Auto) Jones % (Auto) 10.1 H Lymph # 0.8 L Jones # Seg Neutrophils % 71.4 H Seg Neuts % (Manual) Lymphocytes % (Manual) Monocytes % (Manual) Nucleated RBC % Seg Neutrophils # Seg Neutrophils # Man Lymphocytes # (Manual) Monocytes # (Manual) PT INR D-Dimer Heparin Anti-Xa Level POC ABG pH ABG pH POC ABG pCO2 POC ABG pO2 ABG pO2 123.8 H ABG HCO3 ABG O2 Saturation ABG Base Excess -3.0 L ABG Hemoglobin 7.9 L Oxyhemoglobin Sodium 134 L Potassium Chloride 97.9 L Carbon Dioxide BUN 64 H Creatinine 8.1 H Glucose POC Glucose Lactic Acid Calcium 7.2 L Ionized Calcium Phosphorus Magnesium Iron TIBC Ferritin Total Bilirubin Direct Bilirubin AST ALT Alkaline Phosphatase Total Creatine Kinase CK-MB (CK-2) Troponin T C-Reactive Protein Total Protein Albumin Triglycerides LDL Cholesterol Direct HDL Cholesterol Free T4 PTH Intact Urine WBC (Auto) Urine Creatinine Salicylates Acetaminophen Crossmatch 04/04/19 04/04/19 04/04/19 06:07 13:40 18:18 WBC RBC Hgb Hct MCV RDW Plt Count Lymph % (Auto) Jones % (Auto) Lymph # Jones # Seg Neutrophils % Seg Neuts % (Manual) Lymphocytes % (Manual) Monocytes % (Manual) Nucleated RBC % Seg Neutrophils # Seg Neutrophils # Man Lymphocytes # (Manual) Monocytes # (Manual) PT INR D-Dimer Heparin Anti-Xa Level POC ABG pH ABG pH POC ABG pCO2 POC ABG pO2 ABG pO2 95.9 H ABG HCO3 ABG O2 Saturation ABG Base Excess -3.0 L ABG Hemoglobin 8.5 L Oxyhemoglobin Sodium Potassium Chloride Carbon Dioxide BUN Creatinine Glucose POC Glucose 107 H 107 H Lactic Acid Calcium Ionized Calcium Phosphorus Magnesium Iron TIBC Ferritin Total Bilirubin Direct Bilirubin AST ALT Alkaline Phosphatase Total Creatine Kinase CK-MB (CK-2) Troponin T C-Reactive Protein Total Protein Albumin Triglycerides LDL Cholesterol Direct HDL Cholesterol Free T4 PTH Intact Urine WBC (Auto) Urine Creatinine Salicylates Acetaminophen Crossmatch 04/04/19 04/05/19 04/05/19 21:22 04:09 04:09 WBC RBC 2.76 L Hgb 8.4 L Hct 25.4 L MCV RDW 15.8 H Plt Count 133 L Lymph % (Auto) Jones % (Auto) 9.6 H Lymph # 0.7 L Jones # Seg Neutrophils % 72.6 H Seg Neuts % (Manual) Lymphocytes % (Manual) Monocytes % (Manual) Nucleated RBC % Seg Neutrophils # Seg Neutrophils # Man Lymphocytes # (Manual) Monocytes # (Manual) PT INR D-Dimer Heparin Anti-Xa Level POC ABG pH ABG pH POC ABG pCO2 47.2 H POC ABG pO2 137 H ABG pO2 ABG HCO3 ABG O2 Saturation ABG Base Excess ABG Hemoglobin Oxyhemoglobin Sodium 136 L Potassium Chloride Carbon Dioxide BUN 46 H Creatinine 6.7 H Glucose POC Glucose Lactic Acid Calcium 7.7 L Ionized Calcium Phosphorus Magnesium Iron TIBC Ferritin Total Bilirubin Direct Bilirubin AST ALT Alkaline Phosphatase Total Creatine Kinase CK-MB (CK-2) Troponin T C-Reactive Protein Total Protein Albumin Triglycerides LDL Cholesterol Direct HDL Cholesterol Free T4 PTH Intact Urine WBC (Auto) Urine Creatinine Salicylates Acetaminophen Crossmatch 04/05/19 04/05/19 04/05/19 05:28 06:14 16:50 WBC RBC Hgb Hct MCV RDW Plt Count Lymph % (Auto) Jones % (Auto) Lymph # Jones # Seg Neutrophils % Seg Neuts % (Manual) Lymphocytes % (Manual) Monocytes % (Manual) Nucleated RBC % Seg Neutrophils # Seg Neutrophils # Man Lymphocytes # (Manual) Monocytes # (Manual) PT INR D-Dimer Heparin Anti-Xa Level POC ABG pH ABG pH POC ABG pCO2 POC ABG pO2 67 L ABG pO2 ABG HCO3 ABG O2 Saturation ABG Base Excess ABG Hemoglobin Oxyhemoglobin Sodium Potassium Chloride Carbon Dioxide BUN Creatinine Glucose POC Glucose 108 H Lactic Acid Calcium Ionized Calcium Phosphorus Magnesium Iron TIBC Ferritin Total Bilirubin Direct Bilirubin AST ALT Alkaline Phosphatase Total Creatine Kinase CK-MB (CK-2) Troponin T C-Reactive Protein Total Protein Albumin Triglycerides LDL Cholesterol Direct HDL Cholesterol Free T4 PTH Intact Urine WBC (Auto) 40.0 H Urine Creatinine Salicylates Acetaminophen Crossmatch 04/05/19 04/06/19 04/06/19 17:22 00:13 04:44 WBC RBC 2.48 L Hgb 7.5 L Hct 22.9 L MCV RDW 16.0 H Plt Count 107 L Lymph % (Auto) Jones % (Auto) 10.7 H Lymph # 1.0 L Jones # Seg Neutrophils % Seg Neuts % (Manual) Lymphocytes % (Manual) Monocytes % (Manual) Nucleated RBC % Seg Neutrophils # Seg Neutrophils # Man Lymphocytes # (Manual) Monocytes # (Manual) PT INR D-Dimer Heparin Anti-Xa Level POC ABG pH ABG pH POC ABG pCO2 POC ABG pO2 ABG pO2 ABG HCO3 ABG O2 Saturation ABG Base Excess ABG Hemoglobin Oxyhemoglobin Sodium Potassium Chloride Carbon Dioxide BUN Creatinine Glucose POC Glucose 118 H 138 H Lactic Acid Calcium Ionized Calcium Phosphorus Magnesium Iron TIBC Ferritin Total Bilirubin Direct Bilirubin AST ALT Alkaline Phosphatase Total Creatine Kinase CK-MB (CK-2) Troponin T C-Reactive Protein Total Protein Albumin Triglycerides LDL Cholesterol Direct HDL Cholesterol Free T4 PTH Intact Urine WBC (Auto) Urine Creatinine Salicylates Acetaminophen Crossmatch 04/06/19 04/06/19 04/06/19 04:44 05:20 05:23 WBC RBC Hgb Hct MCV RDW Plt Count Lymph % (Auto) Jones % (Auto) Lymph # Jones # Seg Neutrophils % Seg Neuts % (Manual) Lymphocytes % (Manual) Monocytes % (Manual) Nucleated RBC % Seg Neutrophils # Seg Neutrophils # Man Lymphocytes # (Manual) Monocytes # (Manual) PT INR D-Dimer Heparin Anti-Xa Level POC ABG pH ABG pH POC ABG pCO2 POC ABG pO2 ABG pO2 104.0 H ABG HCO3 ABG O2 Saturation ABG Base Excess -2.1 L ABG Hemoglobin 7.3 L Oxyhemoglobin Sodium Potassium Chloride Carbon Dioxide BUN 64 H Creatinine 8.2 H Glucose 103 H POC Glucose 118 H Lactic Acid Calcium 7.3 L Ionized Calcium Phosphorus Magnesium Iron TIBC Ferritin Total Bilirubin Direct Bilirubin AST ALT Alkaline Phosphatase Total Creatine Kinase CK-MB (CK-2) Troponin T C-Reactive Protein Total Protein Albumin Triglycerides LDL Cholesterol Direct HDL Cholesterol Free T4 PTH Intact Urine WBC (Auto) Urine Creatinine Salicylates Acetaminophen Crossmatch 04/06/19 04/07/19 04/07/19 12:02 05:40 05:40 WBC RBC 2.59 L Hgb 7.9 L Hct 23.8 L MCV RDW 15.8 H Plt Count 89 L Lymph % (Auto) Jones % (Auto) 10.3 H Lymph # 1.1 L Jones # Seg Neutrophils % Seg Neuts % (Manual) Lymphocytes % (Manual) Monocytes % (Manual) Nucleated RBC % Seg Neutrophils # Seg Neutrophils # Man Lymphocytes # (Manual) Monocytes # (Manual) PT INR D-Dimer Heparin Anti-Xa Level POC ABG pH ABG pH POC ABG pCO2 POC ABG pO2 ABG pO2 ABG HCO3 ABG O2 Saturation ABG Base Excess ABG Hemoglobin Oxyhemoglobin Sodium 136 L Potassium 3.5 L Chloride Carbon Dioxide BUN 46 H Creatinine 6.2 H Glucose POC Glucose 108 H Lactic Acid Calcium 7.9 L Ionized Calcium Phosphorus Magnesium Iron TIBC Ferritin Total Bilirubin Direct Bilirubin AST ALT Alkaline Phosphatase Total Creatine Kinase CK-MB (CK-2) Troponin T C-Reactive Protein Total Protein Albumin Triglycerides LDL Cholesterol Direct HDL Cholesterol Free T4 PTH Intact Urine WBC (Auto) Urine Creatinine Salicylates Acetaminophen Crossmatch 04/07/19 04/09/19 04/09/19 12:57 04:28 04:28 WBC RBC 2.85 L Hgb 8.7 L Hct 26.2 L MCV RDW 15.6 H Plt Count Lymph % (Auto) Jones % (Auto) 10.4 H Lymph # 1.0 L Jones # Seg Neutrophils % 73.3 H Seg Neuts % (Manual) Lymphocytes % (Manual) Monocytes % (Manual) Nucleated RBC % Seg Neutrophils # Seg Neutrophils # Man Lymphocytes # (Manual) Monocytes # (Manual) PT INR D-Dimer Heparin Anti-Xa Level POC ABG pH ABG pH POC ABG pCO2 POC ABG pO2 107 H ABG pO2 ABG HCO3 ABG O2 Saturation ABG Base Excess ABG Hemoglobin Oxyhemoglobin Sodium Potassium 3.5 L Chloride 97.8 L Carbon Dioxide BUN 62 H Creatinine 8.1 H Glucose POC Glucose Lactic Acid Calcium 8.2 L Ionized Calcium Phosphorus 5.10 H Magnesium Iron TIBC Ferritin Total Bilirubin Direct Bilirubin AST ALT Alkaline Phosphatase Total Creatine Kinase CK-MB (CK-2) Troponin T C-Reactive Protein Total Protein Albumin Triglycerides LDL Cholesterol Direct HDL Cholesterol Free T4 PTH Intact Urine WBC (Auto) Urine Creatinine Salicylates Acetaminophen Crossmatch 04/10/19 04/11/19 04/11/19 18:15 00:25 04:16 WBC 11.5 H RBC 2.91 L Hgb 8.9 L Hct 27.6 L MCV 95 H RDW 17.5 H Plt Count Lymph % (Auto) Jones % (Auto) Lymph # Jones # Seg Neutrophils % Seg Neuts % (Manual) 71.0 H Lymphocytes % (Manual) Monocytes % (Manual) 8.0 H Nucleated RBC % Seg Neutrophils # Seg Neutrophils # Man 8.2 H Lymphocytes # (Manual) Monocytes # (Manual) 0.9 H PT INR D-Dimer Heparin Anti-Xa Level POC ABG pH ABG pH POC ABG pCO2 POC ABG pO2 ABG pO2 ABG HCO3 ABG O2 Saturation ABG Base Excess ABG Hemoglobin Oxyhemoglobin Sodium Potassium Chloride Carbon Dioxide BUN Creatinine Glucose POC Glucose 109 H 114 H Lactic Acid Calcium Ionized Calcium Phosphorus Magnesium Iron TIBC Ferritin Total Bilirubin Direct Bilirubin AST ALT Alkaline Phosphatase Total Creatine Kinase CK-MB (CK-2) Troponin T C-Reactive Protein Total Protein Albumin Triglycerides LDL Cholesterol Direct HDL Cholesterol Free T4 PTH Intact Urine WBC (Auto) Urine Creatinine Salicylates Acetaminophen Crossmatch 04/11/19 04/11/19 04/11/19 06:47 09:21 12:15 WBC RBC Hgb Hct MCV RDW Plt Count Lymph % (Auto) Jones % (Auto) Lymph # Jones # Seg Neutrophils % Seg Neuts % (Manual) Lymphocytes % (Manual) Monocytes % (Manual) Nucleated RBC % Seg Neutrophils # Seg Neutrophils # Man Lymphocytes # (Manual) Monocytes # (Manual) PT INR D-Dimer Heparin Anti-Xa Level POC ABG pH ABG pH POC ABG pCO2 POC ABG pO2 ABG pO2 ABG HCO3 ABG O2 Saturation ABG Base Excess ABG Hemoglobin Oxyhemoglobin Sodium Potassium 3.5 L Chloride Carbon Dioxide BUN 45 H Creatinine 6.0 H Glucose 113 H POC Glucose 106 H 109 H Lactic Acid Calcium Ionized Calcium Phosphorus Magnesium Iron TIBC Ferritin Total Bilirubin Direct Bilirubin AST ALT Alkaline Phosphatase Total Creatine Kinase CK-MB (CK-2) Troponin T C-Reactive Protein Total Protein Albumin Triglycerides LDL Cholesterol Direct HDL Cholesterol Free T4 PTH Intact Urine WBC (Auto) Urine Creatinine Salicylates Acetaminophen Crossmatch 04/11/19 04/12/19 04/12/19 18:42 12:13 23:52 WBC RBC Hgb Hct MCV RDW Plt Count Lymph % (Auto) Jones % (Auto) Lymph # Jones # Seg Neutrophils % Seg Neuts % (Manual) Lymphocytes % (Manual) Monocytes % (Manual) Nucleated RBC % Seg Neutrophils # Seg Neutrophils # Man Lymphocytes # (Manual) Monocytes # (Manual) PT INR D-Dimer Heparin Anti-Xa Level POC ABG pH ABG pH POC ABG pCO2 POC ABG pO2 ABG pO2 ABG HCO3 ABG O2 Saturation ABG Base Excess ABG Hemoglobin Oxyhemoglobin Sodium Potassium Chloride Carbon Dioxide BUN Creatinine Glucose POC Glucose 107 H 115 H 124 H Lactic Acid Calcium Ionized Calcium Phosphorus Magnesium Iron TIBC Ferritin Total Bilirubin Direct Bilirubin AST ALT Alkaline Phosphatase Total Creatine Kinase CK-MB (CK-2) Troponin T C-Reactive Protein Total Protein Albumin Triglycerides LDL Cholesterol Direct HDL Cholesterol Free T4 PTH Intact Urine WBC (Auto) Urine Creatinine Salicylates Acetaminophen Crossmatch 04/13/19 04/13/19 04/13/19 05:00 05:00 05:47 WBC 11.7 H RBC 2.97 L Hgb 8.8 L Hct 27.3 L MCV RDW 16.1 H Plt Count Lymph % (Auto) 9.5 L Jones % (Auto) 9.9 H Lymph # 1.1 L Jones # 1.2 H Seg Neutrophils % 78.6 H Seg Neuts % (Manual) Lymphocytes % (Manual) Monocytes % (Manual) Nucleated RBC % Seg Neutrophils # 9.2 H Seg Neutrophils # Man Lymphocytes # (Manual) Monocytes # (Manual) PT INR D-Dimer Heparin Anti-Xa Level POC ABG pH ABG pH POC ABG pCO2 POC ABG pO2 ABG pO2 ABG HCO3 ABG O2 Saturation ABG Base Excess ABG Hemoglobin Oxyhemoglobin Sodium Potassium 3.5 L Chloride Carbon Dioxide BUN 42 H Creatinine 4.6 H Glucose 106 H POC Glucose 107 H Lactic Acid Calcium 10.6 H D Ionized Calcium Phosphorus 5.90 H Magnesium Iron TIBC Ferritin Total Bilirubin Direct Bilirubin AST ALT Alkaline Phosphatase Total Creatine Kinase CK-MB (CK-2) Troponin T C-Reactive Protein Total Protein 5.8 L Albumin 2.5 L Triglycerides LDL Cholesterol Direct HDL Cholesterol Free T4 PTH Intact Urine WBC (Auto) Urine Creatinine Salicylates Acetaminophen Crossmatch 04/13/19 04/14/19 04/14/19 17:32 00:00 03:55 WBC RBC Hgb Hct MCV RDW Plt Count Lymph % (Auto) Jones % (Auto) Lymph # Jones # Seg Neutrophils % Seg Neuts % (Manual) Lymphocytes % (Manual) Monocytes % (Manual) Nucleated RBC % Seg Neutrophils # Seg Neutrophils # Man Lymphocytes # (Manual) Monocytes # (Manual) PT INR D-Dimer Heparin Anti-Xa Level POC ABG pH ABG pH POC ABG pCO2 POC ABG pO2 ABG pO2 ABG HCO3 ABG O2 Saturation ABG Base Excess ABG Hemoglobin Oxyhemoglobin Sodium Potassium 3.0 L Chloride Carbon Dioxide BUN 30 H Creatinine 3.1 H Glucose POC Glucose 112 H 120 H Lactic Acid Calcium 10.8 H Ionized Calcium Phosphorus Magnesium Iron TIBC Ferritin Total Bilirubin Direct Bilirubin AST ALT Alkaline Phosphatase Total Creatine Kinase CK-MB (CK-2) Troponin T C-Reactive Protein Total Protein Albumin Triglycerides LDL Cholesterol Direct HDL Cholesterol Free T4 PTH Intact Urine WBC (Auto) Urine Creatinine Salicylates Acetaminophen Crossmatch Allied health notes reviewed: nursing
--- NOTE | 2019-04-14 11:44 | Progress Note ---
Assessment and Plan 1. Acute kidney injury: Vasomotor RUBEN in the setting of shock / volume depletion / Rhabdo. Baseline renal function is unknown. CT abdomen was negative for obstructive nephropathy. Monitor renal function. Renal prognosis is guarded. Avoid nephrotoxic agents. Meds dosage based on GFR. Patient was started on hemodialysis on 03/18/19 due to worsening metabolic acidosis and hyperkalemia. Hemodialysis: 03/18, 03/19, 03/20, 03/22, 03/23, 03/24, 03/26, 03/28, 03/29, 03/31, 04/02, 04/04, 04/06, 04/09, 04/11, 04/13. 2. FEN: Hypokalemia, replete K. Hyponatremia, improved. Metabolic acidosis, on maintenance HD. Volume overload, UF with HD as tolerated. Hypocalcemia, likely multifactorial. Zemplar stopped due to hypercalcemia. Will stop Phoslo. Monitor lytes. 3. Septic shock: Followed by ID. Currently off pressors. 4. Rhabdomyolysis: Improved. 5. A.fib with RVR: On Amiodarone and Metoprolol. Followed by Cards. 6. Respiratory failure: Extubated. On BIPAP intermittently. 7. Severe anemia: S/p PRBC. On Epogen. 8. Elevated transaminases: Improved. 9. Encephalopathy. Examination: General appearance: well-developed, appears stated age, obese, on BIPAP, NG tube noted HEENT: Atraumatic EYES: Pupils reacting to light Neck: supple Respiratory: CTAB, decreased breath sounds Cardiology: regular, S1S2 heard, no murmur Gastrointestinal: obese, BS heard, not tender Integumentary: no rash noted Neurologic: opens eyes, not following command Ext: 1+ edema of all 4 extremities : some scrotal edema noted Hemodialysis access: R IJ temp catheter Subjective Date of service: 04/14/19 Principal diagnosis: Septic Shock; Ac. hypoxemic resp failure; Renzo. PNA; Rhabdomyolysis; RUBEN Interval history: Patient was seen and examined at the bedside. Objective - Vital Signs Vital signs: Vital Signs - 12hr 04/14/19 04/14/19 04/14/19 00:00 00:01 00:12 Temperature 98.4 F Pulse Rate 89 90 Respiratory 14 Rate Blood Pressure 157/68 O2 Sat by Pulse 94 Oximetry 04/14/19 04/14/19 04/14/19 00:22 00:30 01:00 Temperature Pulse Rate 89 92 H Respiratory 19 26 H Rate Blood Pressure 153/79 164/95 O2 Sat by Pulse 96 96 93 Oximetry 04/14/19 04/14/19 04/14/19 02:00 03:00 03:11 Temperature Pulse Rate 92 H 98 H 99 H Respiratory 41 H 35 H Rate Blood Pressure 172/96 177/80 177/82 O2 Sat by Pulse 92 92 Oximetry 04/14/19 04/14/19 04/14/19 04:00 04:36 05:00 Temperature 99.8 F H Pulse Rate 100 H 100 H Respiratory 12 38 H Rate Blood Pressure 132/75 147/73 O2 Sat by Pulse 91 94 Oximetry 04/14/19 04/14/19 04/14/19 05:49 06:00 08:00 Temperature 99.8 F H Pulse Rate 98 H 89 Respiratory 31 H Rate Blood Pressure 161/79 139/72 O2 Sat by Pulse 94 Oximetry 04/14/19 10:48 Temperature Pulse Rate 106 H Respiratory Rate Blood Pressure 162/90 O2 Sat by Pulse Oximetry - Lab 04/13/19 05:00 04/14/19 03:55 Most recent lab results ABG pH 7.388 pH Units (7.350-7.450) 04/06/19 05:20 ABG pCO2 38.5 mm Hg 04/06/19 05:20 ABG pO2 104.0 mm Hg (80.0-90.0) H 04/06/19 05:20 ABG HCO3 22.6 mmol/L (20.0-26.0) 04/06/19 05:20 ABG O2 Saturation 97.8 % (95.0-99.0) 04/06/19 05:20 Calcium 10.8 mg/dL (8.4-10.2) H 04/14/19 03:55 Phosphorus 5.90 mg/dL (2.5-4.5) H 04/13/19 05:00 Magnesium 1.90 mg/dL (1.7-2.3) 03/31/19 15:07 Urine Creatinine 106.6 mg/dL (0.1-20.0) H 03/17/19 16:05 Urine Sodium 95 mmol/L 03/17/19 16:05 Medications & Allergies - Medications Allergies/Adverse Reactions: Allergies No Known Allergies Allergy (Unverified 03/16/19 17:17) Home Medications: Home Medications Medication Instructions Recorded Confirmed Last Taken Type Unobtainable 03/18/19 03/18/19 Unknown History Active Medications: Generic Name Dose Route Start Last Admin Trade Name Freq PRN Reason Stop Dose Admin Acetaminophen 650 mg 04/02/19 23:26 04/13/19 22:12 Tylenol PO 650 mg Q4H PRN Administration Pain, Mild (1-3),temp>100.5 Albuterol 2.5 mg 03/29/19 13:08 Proventil IH Q4HRT PRN Shortness Of Breath Amiodarone HCl 400 mg 04/11/19 10:45 04/14/19 07:46 Cordarone PO 400 mg TID PAOLO Administration Bacitracin 1 applic 04/09/19 02:43 04/11/19 00:20 Antibiotic Oint TP 1 applic PRN PRN Administration upper lip sore/open Bumetanide 2 mg 04/10/19 18:00 04/14/19 05:48 Bumex IV 2 mg BID@0600,1800 PAOLO Administration Calcium Acetate 1,334 mg 03/31/19 14:00 04/14/19 07:47 Phoslo PO 1,334 mg TID PAOLO Administration Dextrose 50 gm 03/19/19 18:39 03/26/19 23:26 D50w (25gm) Vial IV 50 gm PRN PRN Administration Hypoglycemia Epoetin Jet 20,000 unit 03/31/19 10:15 04/13/19 17:41 Procrit SUB-Q 20,000 unit NEYMAR PRN Administration hemodialysis Hydralazine HCl 20 mg 04/14/19 03:00 04/14/19 03:11 Apresoline IV 20 mg Q4H PRN Administration hypertemsion Hydrophilic Ointment 1 applic 03/16/19 15:50 Vaseline Lip Therapy TP Q2HR PRN Dry Lips Cefepime HCl 2 gm in 100 mls @ 200 mls/hr 04/11/19 18:00 04/13/19 17:53 Maxipime/Ns 2 Gm/100 Ml IV 200 mls/hr QPM PAOLO Administration Protocol Sodium Chloride 100 mls @ 999 mls/hr 04/13/19 08:30 Nacl 0.9% IV NEYMAR PRN Hypotension Lansoprazole 30 mg 04/11/19 10:00 04/14/19 10:37 Prevacid Solutab FEEDTUBE 30 mg BID PAOLO Administration Metoprolol Tartrate 5 mg 04/11/19 11:00 04/14/19 10:48 Lopressor IV 5 mg Q6H PAOLO Administration Multi-Ingred Cream/Lotion/Oil/Oint 1 applic 03/16/19 15:50 03/19/19 20:10 Artificial Tears Ophth Oint OU 1 applic Q4HR PRN Administration Dry Eye(s) Ondansetron HCl 4 mg 03/16/19 22:21 04/11/19 20:49 Zofran IV 4 mg Q8H PRN Administration Nausea And Vomiting
--- NOTE | 2019-04-14 13:14 | Progress Note ---
Assessment and Plan Assessment and plan: Acute hypoxic respiratory failure. Patient self extubated. Continue BiPAP as clinically indicated. Atrial fibrillation. Continue medications for rate control. Cardiology following. No systemic AC regarding AFib in setting of anemia, thrombocytopenia, GI bleed. Acute blood loss anemia. Patient with GI bleed secondary to peptic ulcer disease. EGD completed per GI. GI bleed/peptic ulcer disease. Continue PPI. Transfuse PRBCs as needed. Sepsis. Continue antibiotics per ID. Follow-up blood cultures. Ischemic hepatitis/liver. Elevated LFTs improved. Viral hepatitis panel negative. Acute kidney injury. Patient now with hemodialysis. Patient was started on hemodialysis on 03/18/19 due to worsening metabolic acidosis and hyperkalemia. Baseline renal function is unknown. CT abdomen was negative for obstructive nephropathy. Avoid nephrotoxic agents. Toxic metabolic encephalopathy. Brain MRI showed no acute intracranial abnormality, mild nonspecific chronic white matter changes, fluid throughout the sinuses and mastoid air cells. Thrombocytopenia. Etiology likely secondary to sepsis. Resolved. Rhabdomyolysis. CK normalized. History Interval history: No new issues overnight. Hospitalist Physical - Constitutional Vitals: Temp Pulse Resp BP Pulse Ox 99.8 F H 106 H 31 H 162/90 94 04/14/19 08:00 04/14/19 10:48 04/14/19 06:00 04/14/19 10:48 04/14/19 06:00 General appearance: Present: disheveled, other (Stuporus) - EENT Eyes: Present: PERRL, EOM intact ENT: hearing intact, clear oral mucosa, dentition normal - Neck Neck: Present: supple, normal ROM - Respiratory Respiratory effort: normal Respiratory: bilateral: CTA - Cardiovascular Rhythm: regular Heart Sounds: Present: S1 & S2. Absent: gallop, rub - Extremities Extremities: no ischemia, No edema, Full ROM - Abdominal General gastrointestinal: soft, non-tender, non-distended, normal bowel sounds - Integumentary Integumentary: Present: clear, warm, dry - Neurologic Neurologic: CNII-XII intact, moves all extremities Results - Labs CBC & Chem 7: 04/13/19 05:00 04/14/19 03:55 Labs: Laboratory Last Values WBC 11.7 K/mm3 (4.5-11.0) H 04/13/19 05:00 RBC 2.97 M/mm3 (3.65-5.03) L 04/13/19 05:00 Hgb 8.8 gm/dl (11.8-15.2) L 04/13/19 05:00 Hct 27.3 % (35.5-45.6) L 04/13/19 05:00 MCV 92 fl (84-94) 04/13/19 05:00 MCH 30 pg (28-32) 04/13/19 05:00 MCHC 32 % (32-34) 04/13/19 05:00 RDW 16.1 % (13.2-15.2) H 04/13/19 05:00 Plt Count 173 K/mm3 (140-440) 04/13/19 05:00 Lymph % (Auto) 9.5 % (13.4-35.0) L 04/13/19 05:00 [place] % (Auto) 9.9 % (0.0-7.3) H 04/13/19 05:00 Eos % (Auto) 0.8 % (0.0-4.3) 04/13/19 05:00 Baso % (Auto) 1.2 % (0.0-1.8) 04/13/19 05:00 Lymph # 1.1 K/mm3 (1.2-5.4) L 04/13/19 05:00 [place] # 1.2 K/mm3 (0.0-0.8) H 04/13/19 05:00 Eos # 0.1 K/mm3 (0.0-0.4) 04/13/19 05:00 Baso # 0.1 K/mm3 (0.0-0.1) 04/13/19 05:00 Add Manual Diff Complete 04/11/19 04:16 Total Counted 100 04/11/19 04:16 Seg Neutrophils % 78.6 % (40.0-70.0) H 04/13/19 05:00 Seg Neuts % (Manual) 71.0 % (40.0-70.0) H 04/11/19 04:16 Band Neutrophils % 1.0 % 04/11/19 04:16 Lymphocytes % (Manual) 17.0 % (13.4-35.0) 04/11/19 04:16 Reactive Lymphs % (Man) 0 % 04/11/19 04:16 Monocytes % (Manual) 8.0 % (0.0-7.3) H 04/11/19 04:16 Eosinophils % (Manual) 2.0 % (0.0-4.3) 04/11/19 04:16 Basophils % (Manual) 1.0 % (0.0-1.8) 04/11/19 04:16 Metamyelocytes % 0 % 04/11/19 04:16 Myelocytes % 0 % 04/11/19 04:16 Promyelocytes % 0 % 04/11/19 04:16 Blast Cells % 0 % 04/11/19 04:16 Nucleated RBC % Not Reportable 04/11/19 04:16 Seg Neutrophils # 9.2 K/mm3 (1.8-7.7) H 04/13/19 05:00 Seg Neutrophils # Man 8.2 K/mm3 (1.8-7.7) H 04/11/19 04:16 Band Neutrophils # 0.1 K/mm3 04/11/19 04:16 Lymphocytes # (Manual) 2.0 K/mm3 (1.2-5.4) 04/11/19 04:16 Abs React Lymphs (Man) 0.0 K/mm3 04/11/19 04:16 Monocytes # (Manual) 0.9 K/mm3 (0.0-0.8) H 04/11/19 04:16 Eosinophils # (Manual) 0.2 K/mm3 (0.0-0.4) 04/11/19 04:16 Basophils # (Manual) 0.1 K/mm3 (0.0-0.1) 04/11/19 04:16 Metamyelocytes # 0.0 K/mm3 04/11/19 04:16 Myelocytes # 0.0 K/mm3 04/11/19 04:16 Promyelocytes # 0.0 K/mm3 04/11/19 04:16 Blast Cells # 0.0 K/mm3 04/11/19 04:16 WBC Morphology Not Reportable 04/11/19 04:16 Hypersegmented Neuts Not Reportable 04/11/19 04:16 Hyposegmented Neuts Not Reportable 04/11/19 04:16 Hypogranular Neuts Not Reportable 04/11/19 04:16 Smudge Cells Not Reportable 04/11/19 04:16 Toxic Granulation Not Reportable 04/11/19 04:16 Toxic Vacuolation Not Reportable 04/11/19 04:16 Dohle Bodies Not Reportable 04/11/19 04:16 Pelger-Huet Anomaly Not Reportable 04/11/19 04:16 Joyce Rods Not Reportable 04/11/19 04:16 Platelet Estimate Consistent w auto 04/11/19 04:16 Clumped Platelets Not Reportable 04/11/19 04:16 Plt Clumps, EDTA Not Reportable 04/11/19 04:16 Large Platelets Not Reportable 04/11/19 04:16 Giant Platelets Not Reportable 04/11/19 04:16 Platelet Satelliting Not Reportable 04/11/19 04:16 Plt Morphology Comment Not Reportable 04/11/19 04:16 RBC Morphology Not Reportable 04/11/19 04:16 Dimorphic RBCs Not Reportable 04/11/19 04:16 Polychromasia Not Reportable 04/11/19 04:16 Hypochromasia Not Reportable 04/11/19 04:16 Poikilocytosis Not Reportable 04/11/19 04:16 Anisocytosis Rare 04/11/19 04:16 Microcytosis Rare 04/11/19 04:16 Macrocytosis Not Reportable 04/11/19 04:16 Spherocytes Not Reportable 04/11/19 04:16 Pappenheimer Bodies Not Reportable 04/11/19 04:16 Sickle Cells Not Reportable 04/11/19 04:16 Target Cells Not Reportable 04/11/19 04:16 Tear Drop Cells Not Reportable 04/11/19 04:16 Ovalocytes Not Reportable 04/11/19 04:16 Stomatocytes Few 03/26/19 Unknown Helmet Cells Not Reportable 04/11/19 04:16 Shrestha-Ellinger Bodies Not Reportable 04/11/19 04:16 [place] Rings Not Reportable 04/11/19 04:16 Samantha Cells Not Reportable 04/11/19 04:16 Bite Cells Not Reportable 04/11/19 04:16 Crenated Cell Not Reportable 04/11/19 04:16 Elliptocytes Not Reportable 04/11/19 04:16 Acanthocytes (Spur) Not Reportable 04/11/19 04:16 Rouleaux Not Reportable 04/11/19 04:16 Hemoglobin C Crystals Not Reportable 04/11/19 04:16 Schistocytes Not Reportable 04/11/19 04:16 Malaria parasites Not Reportable 04/11/19 04:16 Phil Bodies Not Reportable 04/11/19 04:16 Hem Pathologist Commnt No 04/11/19 04:16 PT 15.3 Sec. (12.2-14.9) H 03/29/19 11:48 INR 1.24 (0.87-1.13) H 03/29/19 11:48 APTT 26.6 Sec. (24.2-36.6) 03/28/19 12:00 Fibrinogen 226 mg/dl (211-480) 03/28/19 12:00 D-Dimer 4845.98 ng/mlDDU (0-234) H 03/28/19 12:00 Heparin Anti-Xa Level 0.23 U.I./ml (0.3-0.7) L 03/28/19 05:13 POC ABG pH 7.401 (7.35-7.45) 04/07/19 12:57 ABG pH 7.388 pH Units (7.350-7.450) 04/06/19 05:20 POC ABG pCO2 41.5 (35-45) 04/07/19 12:57 ABG pCO2 38.5 mm Hg 04/06/19 05:20 POC ABG pO2 107 (80-105) H 04/07/19 12:57 ABG pO2 104.0 mm Hg (80.0-90.0) H 04/06/19 05:20 POC ABG HCO3 25.7 (22-26 mml/L) 04/07/19 12:57 ABG HCO3 22.6 mmol/L (20.0-26.0) 04/06/19 05:20 POC ABG Total CO2 27 (23-27mmol/L) 04/07/19 12:57 POC ABG O2 Sat 98 04/07/19 12:57 ABG O2 Saturation 97.8 % (95.0-99.0) 04/06/19 05:20 ABG O2 Content 10.0 (0.0-44) 04/06/19 05:20 POC ABG Base Excess 1 ((-2) - (+3)mmol/L) 04/07/19 12:57 ABG Base Excess -2.1 mmol/L (-2.0-3.0) L 04/06/19 05:20 ABG Hemoglobin 7.3 gm/dl (14.0-18.0) L 04/06/19 05:20 ABG Carboxyhemoglobin 1.7 % (0.0-5.0) 04/06/19 05:20 ABG Methemoglobin 0.6 % (0.0-1.5) 04/06/19 05:20 Oxyhemoglobin 95.5 % (95.0-99.0) 04/06/19 05:20 FiO2 30 % 04/07/19 12:57 Sodium 143 mmol/L (137-145) 04/14/19 03:55 Potassium 3.0 mmol/L (3.6-5.0) L 04/14/19 03:55 Chloride 101.3 mmol/L (98-107) 04/14/19 03:55 Carbon Dioxide 27 mmol/L (22-30) 04/14/19 03:55 Anion Gap 18 mmol/L 04/14/19 03:55 BUN 30 mg/dL (9-20) H 04/14/19 03:55 Creatinine 3.1 mg/dL (0.8-1.5) H 04/14/19 03:55 Estimated GFR 22 ml/min 04/14/19 03:55 BUN/Creatinine Ratio 10 % 04/14/19 03:55 Glucose 87 mg/dL (75-100) 04/14/19 03:55 POC Glucose 109 (70-105) H 04/14/19 11:56 Lactic Acid 1.90 mmol/L (0.7-2.0) 03/21/19 21:31 Calcium 10.8 mg/dL (8.4-10.2) H 04/14/19 03:55 Ionized Calcium 3.7 mg/dL (4.8-5.6) L 03/30/19 12:09 Phosphorus 5.90 mg/dL (2.5-4.5) H 04/13/19 05:00 Magnesium 1.90 mg/dL (1.7-2.3) 03/31/19 15:07 Iron 26 ug/dL (49-181) L 04/02/19 05:03 TIBC 138 mcg/dL (250-450) L 04/02/19 05:03 Ferritin 607.0 ng/mL (13.0-400.0) H 04/02/19 05:03 Total Bilirubin 0.50 mg/dL (0.1-1.2) 04/13/19 05:00 Direct Bilirubin 0.4 mg/dL (0-0.2) H 03/31/19 08:20 Indirect Bilirubin 0.1 mg/dL 03/31/19 08:20 AST 21 units/L (5-40) 04/13/19 05:00 ALT 13 units/L (7-56) 04/13/19 05:00 Alkaline Phosphatase 52 units/L (35-129) 04/13/19 05:00 Total Creatine Kinase 62 units/L (55-170) 04/07/19 05:40 CK-MB (CK-2) 54.3 ng/mL (0.0-4.0) H 03/17/19 07:16 CK-MB (CK-2) Rel Index 0.0 (0-4) 03/17/19 07:16 Troponin T 0.058 ng/mL (0.00-0.029) H 03/17/19 07:16 C-Reactive Protein 13.30 mg/dL (0.00-1.30) H 03/20/19 14:45 Total Protein 5.8 g/dL (6.3-8.2) L 04/13/19 05:00 Albumin 2.5 g/dL (3.9-5) L 04/13/19 05:00 Albumin/Globulin Ratio 0.8 % 04/13/19 05:00 Triglycerides 309 mg/dL (2-149) H 03/29/19 06:22 Cholesterol 88 mg/dL (50-199) 03/16/19 22:32 LDL Cholesterol Direct 10 mg/dL (50-130) L 03/16/19 22:32 HDL Cholesterol 7 mg/dL (40-59) L 03/16/19 22:32 Cholesterol/HDL Ratio 12.57 % 03/16/19 22:32 Vitamin B12 903.0 pg/mL (211-911) 04/02/19 05:03 Folate 8.05 ng/mL (7.3-26.0) 04/02/19 05:03 Procalcitonin 25.42 ng/mL (<0.15) 03/27/19 19:21 TSH 2.200 mlU/mL (0.270-4.200) 03/16/19 17:05 Free T4 0.72 ng/dL (0.76-1.46) L 03/16/19 17:05 PTH Intact 329.9 pg/mL (15-65) H 03/25/19 05:00 Urine Color Kathy (Yellow) 04/05/19 16:50 Urine Turbidity Cloudy (Clear) 04/05/19 16:50 Urine pH 5.0 (5.0-7.0) 04/05/19 16:50 Ur Specific [place] 1.018 (1.003-1.030) 04/05/19 16:50 Urine Protein 100 mg/dl mg/dL (Negative) 04/05/19 16:50 Urine Glucose (UA) Neg mg/dL (Negative) 04/05/19 16:50 Urine Ketones Neg mg/dL (Negative) 04/05/19 16:50 Urine Blood Lg (Negative) 04/05/19 16:50 Urine Nitrite Neg (Negative) 04/05/19 16:50 Urine Bilirubin Neg (Negative) 04/05/19 16:50 Urine Urobilinogen < 2.0 mg/dL (<2.0) 04/05/19 16:50 Ur Leukocyte Esterase Tr (Negative) 04/05/19 16:50 Urine WBC (Auto) 40.0 /HPF (0.0-6.0) H 04/05/19 16:50 Urine RBC (Auto) > 182.0 /HPF (0.0-6.0) 04/05/19 16:50 U Epithel Cells (Auto) < 1.0 /HPF (0-13.0) 03/17/19 16:05 Amorphous Crystals 1+ 04/05/19 16:50 Urine Mucus Few /HPF 03/17/19 16:05 Urine Sperm 2+ /HPF (ARCHITECTURE DEPARTMENT CHAIR) 03/17/19 16:05 Urine Eosinophils None seen (None Seen) 03/17/19 16:05 Urine Creatinine 106.6 mg/dL (0.1-20.0) H 03/17/19 16:05 Urine Sodium 95 mmol/L 03/17/19 16:05 Vancomycin Trough 11.5 ug/mL (5.0-20.0) 03/18/19 13:19 Random Vancomycin 10.8 ug/mL (0-40.0) 04/14/19 03:55 Salicylates < 0.3 mg/dL (2.8-20.0) L 03/16/19 17:05 Urine Opiates Screen Presumptive negative 03/17/19 16:05 Urine Methadone Screen Presumptive negative 03/17/19 16:05 Acetaminophen < 5.0 ug/mL (10.0-30.0) L 03/16/19 17:05 Ur Barbiturates Screen Presumptive negative 03/17/19 16:05 Ur Phencyclidine Scrn Presumptive negative 03/17/19 16:05 Ur Amphetamines Screen Presumptive negative 03/17/19 16:05 U Benzodiazepines Scrn Presumptive positive 03/17/19 16:05 Urine Cocaine Screen Presumptive negative 03/17/19 16:05 U Marijuana (THC) Screen Presumptive negative 03/17/19 16:05 Drugs of Abuse Note Disclamer 03/17/19 16:05 Plasma/Serum Alcohol < 0.01 % (0-0.07) 03/16/19 17:05 Hepatitis A IgM Ab Non-reactive (NonReactive) 03/18/19 13:18 Hep Bs Antigen Non-reactive (Negative) 03/18/19 13:18 Hep B Core IgM Ab Non-reactive (NonReactive) 03/18/19 13:18 Hepatitis C Antibody Non-reactive (NonReactive) 03/18/19 13:18 HIV 1&2 Antibody Rapid Non react (Non React) 03/17/19 11:52 HIV P24 Antigen Non react (Non React) 03/17/19 11:52 Influenza A (Rapid) Negative (Negative) 03/17/19 17:00 Influenza B (Rapid) Negative (Negative) 03/17/19 17:00 Group A Strep Rapid Negative (Negative) 03/17/19 17:00 Miscellaneous Test Flexitest 1 03/21/19 12:00 Blood Type A POSITIVE 04/02/19 16:34 Antibody Screen Negative 04/02/19 16:34 Crossmatch See Detail 04/02/19 16:34 Active Medications - Current Medications Current Medications: Generic Name Dose Route Start Last Admin Trade Name Freq PRN Reason Stop Dose Admin Acetaminophen 650 mg 04/02/19 23:26 04/13/19 22:12 Tylenol PO 650 mg Q4H PRN Administration Pain, Mild (1-3),temp>100.5 Albuterol 2.5 mg 03/29/19 13:08 Proventil IH Q4HRT PRN Shortness Of Breath Amiodarone HCl 400 mg 04/11/19 10:45 04/14/19 07:46 Cordarone PO 400 mg TID PAOLO Administration Bacitracin 1 applic 04/09/19 02:43 04/11/19 00:20 Antibiotic Oint TP 1 applic PRN PRN Administration upper lip sore/open Bumetanide 2 mg 04/10/19 18:00 04/14/19 05:48 Bumex IV 2 mg BID@0600,1800 PAOLO Administration Calcium Acetate 1,334 mg 03/31/19 14:00 04/14/19 07:47 Phoslo PO 1,334 mg TID PAOLO Administration Dextrose 50 gm 03/19/19 18:39 03/26/19 23:26 D50w (25gm) Vial IV 50 gm PRN PRN Administration Hypoglycemia Epoetin Jet 20,000 unit 03/31/19 10:15 04/13/19 17:41 Procrit SUB-Q 20,000 unit NEYMAR PRN Administration hemodialysis Hydralazine HCl 20 mg 04/14/19 03:00 04/14/19 03:11 Apresoline IV 20 mg Q4H PRN Administration hypertemsion Hydrophilic Ointment 1 applic 03/16/19 15:50 Vaseline Lip Therapy TP Q2HR PRN Dry Lips Cefepime HCl 2 gm in 100 mls @ 200 mls/hr 04/11/19 18:00 04/13/19 17:53 Maxipime/Ns 2 Gm/100 Ml IV 200 mls/hr QPM PAOLO Administration Protocol Sodium Chloride 100 mls @ 999 mls/hr 04/13/19 08:30 Nacl 0.9% IV NEYMAR PRN Hypotension Lansoprazole 30 mg 04/11/19 10:00 04/14/19 10:37 Prevacid Solutab FEEDTUBE 30 mg BID PAOLO Administration Metoprolol Tartrate 5 mg 04/11/19 11:00 04/14/19 10:48 Lopressor IV 5 mg Q6H PAOLO Administration Multi-Ingred Cream/Lotion/Oil/Oint 1 applic 03/16/19 15:50 03/19/19 20:10 Artificial Tears Ophth Oint OU 1 applic Q4HR PRN Administration Dry Eye(s) Ondansetron HCl 4 mg 03/16/19 22:21 04/11/19 20:49 Zofran IV 4 mg Q8H PRN Administration Nausea And Vomiting Nutrition/Malnutrition Assess - Dietary Evaluation Nutrition/Malnutrition Findings: Nutrition Notes Start: 03/17/19 14:22 Freq: Status: Active Protocol: Document 04/13/19 10:52 RM (Rec: 04/13/19 10:58 RM [email or web address]) Nutrition Notes Initial or Follow up Reassessment Current Diagnosis Acute Kidney Injury,Heart Failure Other Pertinent Diagnosis on HD, Septic shock,Multiple organ failure, encephalopathy, Aspiration pneu Current Diet Nepro at 50 ml/hr Labs/Tests Na 142 BUN 42 Creat 4.6 K 3.5 Pertinent Medications Zofran, Bumetanide Height 6 ft Weight 148.5 kg [place] Body Weight (kg) 80.90 BMI 44.4 Subjective/Other Information Observed Nepro infusing at goal rate. Per nurse pt is tolerating TF. Percent of energy/protein needs met: 100%/100% Burn Absent Trauma Absent Minimum of two criteria No #1 Nutrition Diagnosis Inadequate oral intake Diagnosis Progress(for reassessment Continues documentation) Is patient on ventilator? No Is Patient Ambulatory and/or Out of Bed No REE-([facility]-confined to bed) 2892.144 Kcal/Kg value to use for calculation 14 Approximate Energy Requirements Using 2079 kcal/Kg Calculation Used for Recommendations Kcal/kg Additional Notes Protein: 97-121g (1.2-1.5g/kg, IBW) Fluids:1 ml/kcal or per MD Nutrition Intervention Nutrition Support: Nepro 1.8 at 50 ml/hr Water flush 150 ml q4hr or per MD Kcal 2,160 Protein (gm) 97 Fluid (mL) 872 Goal #1 TF tolerance Goal #2 Continue to meet at least 75% of calorie and protein needs via TF Anticipated Discharge Needs: Unable to determine at this time Follow-Up By: 04/20/19 Additional Comments Follow for TF tolerance
[2019-04-14] MEDS: ACETAMINOPHEN 325 MG TAB PO PRN ×2 (15:50→20:11)
[2019-04-14] MEDS: CEFEPIME/NS 2 GM/100 ML 2 GM/100 ML BAG IV SCH (17:07)
[2019-04-14] MEDS: ONDANSETRON 4 MG/2 ML INJ IV PRN (20:10)
[2019-04-15] MEDS: ACETAMINOPHEN 325 MG TAB PO PRN ×2 (00:27→23:18)
--- NOTE | 2019-04-15 04:08 | Event Note ---
Date: 04/15/19 PATIENT NOTED BY NURSE ON DUTY TO BE HAVING FEVER WHILE RECEIVING TREATMENT FOR SEPSIS, FEVER PERXISTED DESPITE TYLENOL TREATMENT AND PATIENT IS ON CEFEPIME AND VANCOMYCIN. PLAN WILL ADD I.V LEVAQUIN TO THE SEPSIS MANAGMENT AND HAVE INFECTIOUS DISEASE NOTIFIED.
[2019-04-15] MEDS: BUMETANIDE 2.5 MG/10 ML VIAL IV SCH ×2 (05:09→18:55)
[2019-04-15] MEDS: METOPROLOL TARTRATE 5 MG/5 ML INJ IV SCH (05:10)
[2019-04-15 05:27] LABS: Basophils # (Auto) 0.1 K/mm3 (0.0-0.1); Basophils % (Auto) 0.6 % (0.0-1.8); Eosinophils # (Auto) 0.1 K/mm3 (0.0-0.4); Eosinophils % (Auto) 0.5 % (0.0-4.3); Hematocrit 26.5 % (35.5-45.6); Hemoglobin 8.6 gm/dl (11.8-15.2); Lymphocytes # (Auto) 1.6 K/mm3 (1.2-5.4); Lymphocytes % (Auto) 12.2 % (13.4-35.0); Mean Corpuscular HGB Conc 32 % (32-34); Mean Corpuscular Volume 91 fl (84-94); Monocytes # (Auto) 1.2 K/mm3 (0.0-0.8); Monocytes % (Auto) 9.1 % (0.0-7.3); Platelet Count 172 K/mm3 (140-440); Red Blood Count 2.93 M/mm3 (3.65-5.03); Red Cell Distribution Width 16.5 % (13.2-15.2)
[2019-04-15] MEDS: AMIODARONE 200 MG TAB PO SCH ×2 (08:00→21:15)
[2019-04-15] MEDS: LANSOPRAZOLE 30 MG SOLUTAB FEEDTUBE SCH ×2 (09:22→21:13)
--- NOTE | 2019-04-15 10:17 | Progress Note ---
Assessment and Plan We'll change from IV metoprolol to oral metoprolol 25 mg twice a day via the NG tube decrease amiodarone to 200 mg twice a day. Patient is on hemodialysis and is having BiPAP at nighttime has arm weakness is awake will need eventual peg for tube feedings - Patient Problems (1) Acute renal failure Current Visit: Yes Status: Acute Qualifiers: Acute renal failure type: with acute tubular necrosis Qualified Code(s): N17.0 - Acute kidney failure with tubular necrosis (2) Acute respiratory failure Current Visit: Yes Status: Acute Qualifiers: Respiratory failure complication: hypoxia Qualified Code(s): J96.01 - Acute respiratory failure with hypoxia (3) Altered mental status Current Visit: Yes Status: Acute Qualifiers: Altered mental status type: unspecified Qualified Code(s): R41.82 - Altered mental status, unspecified (4) Aspiration pneumonia Current Visit: Yes Status: Acute Qualifiers: Aspiration pneumonia type: unspecified (5) Cardiopulmonary arrest Current Visit: Yes Status: Acute (6) Cellulitis Current Visit: Yes Status: Acute (7) GI bleed Current Visit: Yes Status: Acute (8) Metabolic encephalopathy Current Visit: Yes Status: Acute (9) Morbid obesity with BMI of 50.0-59.9, adult Current Visit: Yes Status: Acute (10) Multi-organ system dysfunction Current Visit: Yes Status: Acute (11) Paroxysmal atrial fibrillation with RVR Current Visit: Yes Status: Acute (12) Thrombocytopenia Current Visit: Yes Status: Resolved Subjective Date of service: 04/15/19 Principal diagnosis: Septic Shock; Ac. hypoxemic resp failure; Renzo. PNA; Rhabdomyolysis; RUBEN Interval history: on bipap and awake Objective Vital Signs Temp Pulse Pulse Resp BP Pulse Ox 04/15/19 09:00 93 H 13 146/72 99 04/15/19 08:00 101.3 F H 108 H 96 H 13 126/58 98 04/15/19 07:00 93 H 14 125/75 98 04/15/19 06:01 102 H 16 128/65 99 04/15/19 05:10 92 H 129/69 04/15/19 05:09 102.1 F H 04/15/19 05:01 90 16 129/69 99 04/15/19 04:58 93 H 16 129/69 99 04/15/19 04:01 97 H 16 152/95 99 04/15/19 04:00 102.1 F H 95 H 98 H 20 99 04/15/19 03:01 95 H 12 152/95 98 04/15/19 02:00 99 H 18 149/82 96 04/15/19 01:35 98 04/15/19 01:32 96 H 18 152/84 98 04/15/19 01:00 93 H 16 155/85 96 04/15/19 00:00 98 H 95 H 20 154/89 94 04/14/19 23:50 101.2 F H 04/14/19 23:35 95 H 12 146/88 99 04/14/19 23:00 96 H 19 157/86 98 04/14/19 22:04 100 H 140/92 04/14/19 22:01 100 H 17 140/92 94 04/14/19 21:17 87 17 145/82 98 04/14/19 21:00 87 17 145/83 96 04/14/19 20:00 99.0 F 95 H 11 L 152/82 94 04/14/19 19:45 93 H 14 99 04/14/19 19:00 93 H 13 149/83 95 04/14/19 18:00 90 14 157/76 97 04/14/19 17:07 101 H 151/84 04/14/19 17:00 99 H 15 151/84 95 04/14/19 16:00 103 H 19 152/83 96 04/14/19 15:00 94 H 21 156/74 94 04/14/19 14:00 99 H 13 156/78 95 04/14/19 13:00 96 H 19 155/82 94 04/14/19 12:00 95 H 102 H 16 161/90 99 04/14/19 11:01 92 H 19 159/81 97 04/14/19 10:48 106 H 162/90 - Physical Examination General: Other HEENT: Positive: EOMI, Normocephaly, Mucus Membranes Moist Neck: Positive: neck supple, trachea midline Cardiac: Positive: Reg Rate and Rhythm Lungs: Positive: clear to auscultation Neuro: Positive: Grossly Intact, Other (awake, alert and oriented) Abdomen: Positive: Soft, Active Bowel Sounds. Negative: Tender /Rectal: Other (deferred) Skin: Positive: Clear. Negative: Rash Musculoskeletal: Normal Range of Motion Extremities: Present: normal. Absent: edema - Labs and Meds CBC 04/15/19 Range/Units 05:11 WBC 13.0 H (4.5-11.0) K/mm3 RBC 2.93 L (3.65-5.03) M/mm3 Hgb 8.6 L (11.8-15.2) gm/dl Hct 26.5 L (35.5-45.6) % Plt Count 172 (140-440) K/mm3 Lymph # 1.6 (1.2-5.4) K/mm3 [place] # 1.2 H (0.0-0.8) K/mm3 Eos # 0.1 (0.0-0.4) K/mm3 Baso # 0.1 (0.0-0.1) K/mm3 Comprehensive Metabolic Panel 04/15/19 Range/Units 05:11 Sodium 145 (137-145) mmol/L Potassium 3.2 L (3.6-5.0) mmol/L Chloride 102.3 (98-107) mmol/L Carbon Dioxide 27 (22-30) mmol/L BUN 44 H (9-20) mg/dL Creatinine 3.6 H (0.8-1.5) mg/dL Glucose 106 H (75-100) mg/dL Calcium 12.0 H (8.4-10.2) mg/dL - Imaging and Cardiology Echo: report reviewed ( EF 40-45%, impaired relaxation. ) - Telemetry EKG Rhythm: Sinus Rhythm - EKG Sinus rhythms and dysrhythmias: sinus rhythm - Allied health notes Allied health notes reviewed: nursing
--- NOTE | 2019-04-15 11:12 | Progress Note ---
Assessment and Plan Assessment and plan: Acute hypoxic respiratory failure. Patient self extubated. Continue BiPAP as clinically indicated. Atrial fibrillation. Continue medications for rate control. Cardiology following. No systemic AC regarding AFib in setting of anemia, thrombocytopenia, GI bleed. Acute blood loss anemia. Patient with GI bleed secondary to peptic ulcer disease. EGD completed per GI. GI bleed/peptic ulcer disease. Continue PPI. Transfuse PRBCs as needed. Sepsis. Continue antibiotics per ID. Follow-up blood cultures. Levaquin added last evening. Ischemic hepatitis/shock liver. Elevated LFTs improved. Viral hepatitis panel negative. Acute kidney injury. Patient now with hemodialysis. Patient was started on hemodialysis on 03/18/19 due to worsening metabolic acidosis and hyperkalemia. Baseline renal function is unknown. CT abdomen was negative for obstructive nephropathy. Avoid nephrotoxic agents. Toxic metabolic encephalopathy. Brain MRI showed no acute intracranial abnormality, mild nonspecific chronic white matter changes, fluid throughout the sinuses and mastoid air cells. Thrombocytopenia. Etiology likely secondary to sepsis. Resolved. Rhabdomyolysis. CK normalized. Prognosis remains guarded. History Interval history: Patient with persistent fevers. She somnolent and lethargic on BiPAP Hospitalist Physical - Constitutional Vitals: Temp Pulse Resp BP Pulse Ox 101.3 F H 81 20 131/69 98 04/15/19 08:00 04/15/19 10:00 04/15/19 10:00 04/15/19 10:00 04/15/19 10:37 General appearance: Present: obese, disheveled, other (Stuporus) - EENT Eyes: Present: PERRL, EOM intact ENT: hearing intact, clear oral mucosa, dentition normal - Neck Neck: Present: supple, normal ROM - Respiratory Respiratory effort: normal Respiratory: bilateral: CTA - Cardiovascular Rhythm: regular Heart Sounds: Present: S1 & S2. Absent: gallop, rub - Extremities Extremities: no ischemia, No edema, Full ROM - Abdominal General gastrointestinal: soft, non-tender, non-distended, normal bowel sounds - Integumentary Integumentary: Present: clear, warm, dry - Neurologic Neurologic: CNII-XII intact, moves all extremities Results - Labs CBC & Chem 7: 04/15/19 05:11 04/15/19 05:11 Labs: Laboratory Last Values WBC 13.0 K/mm3 (4.5-11.0) H 04/15/19 05:11 RBC 2.93 M/mm3 (3.65-5.03) L 04/15/19 05:11 Hgb 8.6 gm/dl (11.8-15.2) L 04/15/19 05:11 Hct 26.5 % (35.5-45.6) L 04/15/19 05:11 MCV 91 fl (84-94) 04/15/19 05:11 MCH 29 pg (28-32) 04/15/19 05:11 MCHC 32 % (32-34) 04/15/19 05:11 RDW 16.5 % (13.2-15.2) H 04/15/19 05:11 Plt Count 172 K/mm3 (140-440) 04/15/19 05:11 Lymph % (Auto) 12.2 % (13.4-35.0) L 04/15/19 05:11 [place] % (Auto) 9.1 % (0.0-7.3) H 04/15/19 05:11 Eos % (Auto) 0.5 % (0.0-4.3) 04/15/19 05:11 Baso % (Auto) 0.6 % (0.0-1.8) 04/15/19 05:11 Lymph # 1.6 K/mm3 (1.2-5.4) 04/15/19 05:11 [place] # 1.2 K/mm3 (0.0-0.8) H 04/15/19 05:11 Eos # 0.1 K/mm3 (0.0-0.4) 04/15/19 05:11 Baso # 0.1 K/mm3 (0.0-0.1) 04/15/19 05:11 Add Manual Diff Complete 04/11/19 04:16 Total Counted 100 04/11/19 04:16 Seg Neutrophils % 77.6 % (40.0-70.0) H 04/15/19 05:11 Seg Neuts % (Manual) 71.0 % (40.0-70.0) H 04/11/19 04:16 Band Neutrophils % 1.0 % 04/11/19 04:16 Lymphocytes % (Manual) 17.0 % (13.4-35.0) 04/11/19 04:16 Reactive Lymphs % (Man) 0 % 04/11/19 04:16 Monocytes % (Manual) 8.0 % (0.0-7.3) H 04/11/19 04:16 Eosinophils % (Manual) 2.0 % (0.0-4.3) 04/11/19 04:16 Basophils % (Manual) 1.0 % (0.0-1.8) 04/11/19 04:16 Metamyelocytes % 0 % 04/11/19 04:16 Myelocytes % 0 % 04/11/19 04:16 Promyelocytes % 0 % 04/11/19 04:16 Blast Cells % 0 % 04/11/19 04:16 Nucleated RBC % Not Reportable 04/11/19 04:16 Seg Neutrophils # 10.1 K/mm3 (1.8-7.7) H 04/15/19 05:11 Seg Neutrophils # Man 8.2 K/mm3 (1.8-7.7) H 04/11/19 04:16 Band Neutrophils # 0.1 K/mm3 04/11/19 04:16 Lymphocytes # (Manual) 2.0 K/mm3 (1.2-5.4) 04/11/19 04:16 Abs React Lymphs (Man) 0.0 K/mm3 04/11/19 04:16 Monocytes # (Manual) 0.9 K/mm3 (0.0-0.8) H 04/11/19 04:16 Eosinophils # (Manual) 0.2 K/mm3 (0.0-0.4) 04/11/19 04:16 Basophils # (Manual) 0.1 K/mm3 (0.0-0.1) 04/11/19 04:16 Metamyelocytes # 0.0 K/mm3 04/11/19 04:16 Myelocytes # 0.0 K/mm3 04/11/19 04:16 Promyelocytes # 0.0 K/mm3 04/11/19 04:16 Blast Cells # 0.0 K/mm3 04/11/19 04:16 WBC Morphology Not Reportable 04/11/19 04:16 Hypersegmented Neuts Not Reportable 04/11/19 04:16 Hyposegmented Neuts Not Reportable 04/11/19 04:16 Hypogranular Neuts Not Reportable 04/11/19 04:16 Smudge Cells Not Reportable 04/11/19 04:16 Toxic Granulation Not Reportable 04/11/19 04:16 Toxic Vacuolation Not Reportable 04/11/19 04:16 Dohle Bodies Not Reportable 04/11/19 04:16 Pelger-Huet Anomaly Not Reportable 04/11/19 04:16 Joyce Rods Not Reportable 04/11/19 04:16 Platelet Estimate Consistent w auto 04/11/19 04:16 Clumped Platelets Not Reportable 04/11/19 04:16 Plt Clumps, EDTA Not Reportable 04/11/19 04:16 Large Platelets Not Reportable 04/11/19 04:16 Giant Platelets Not Reportable 04/11/19 04:16 Platelet Satelliting Not Reportable 04/11/19 04:16 Plt Morphology Comment Not Reportable 04/11/19 04:16 RBC Morphology Not Reportable 04/11/19 04:16 Dimorphic RBCs Not Reportable 04/11/19 04:16 Polychromasia Not Reportable 04/11/19 04:16 Hypochromasia Not Reportable 04/11/19 04:16 Poikilocytosis Not Reportable 04/11/19 04:16 Anisocytosis Rare 04/11/19 04:16 Microcytosis Rare 04/11/19 04:16 Macrocytosis Not Reportable 04/11/19 04:16 Spherocytes Not Reportable 04/11/19 04:16 Pappenheimer Bodies Not Reportable 04/11/19 04:16 Sickle Cells Not Reportable 04/11/19 04:16 Target Cells Not Reportable 04/11/19 04:16 Tear Drop Cells Not Reportable 04/11/19 04:16 Ovalocytes Not Reportable 04/11/19 04:16 Stomatocytes Few 03/26/19 Unknown Helmet Cells Not Reportable 04/11/19 04:16 Shrestha-Caribou Bodies Not Reportable 04/11/19 04:16 Branch Rings Not Reportable 04/11/19 04:16 Samantha Cells Not Reportable 04/11/19 04:16 Bite Cells Not Reportable 04/11/19 04:16 Crenated Cell Not Reportable 04/11/19 04:16 Elliptocytes Not Reportable 04/11/19 04:16 Acanthocytes (Spur) Not Reportable 04/11/19 04:16 Rouleaux Not Reportable 04/11/19 04:16 Hemoglobin C Crystals Not Reportable 04/11/19 04:16 Schistocytes Not Reportable 04/11/19 04:16 Malaria parasites Not Reportable 04/11/19 04:16 Phil Bodies Not Reportable 04/11/19 04:16 Hem Pathologist Commnt No 04/11/19 04:16 PT 15.3 Sec. (12.2-14.9) H 03/29/19 11:48 INR 1.24 (0.87-1.13) H 03/29/19 11:48 APTT 26.6 Sec. (24.2-36.6) 03/28/19 12:00 Fibrinogen 226 mg/dl (211-480) 03/28/19 12:00 D-Dimer 4845.98 ng/mlDDU (0-234) H 03/28/19 12:00 Heparin Anti-Xa Level 0.23 U.I./ml (0.3-0.7) L 03/28/19 05:13 POC ABG pH 7.401 (7.35-7.45) 04/07/19 12:57 ABG pH 7.388 pH Units (7.350-7.450) 04/06/19 05:20 POC ABG pCO2 41.5 (35-45) 04/07/19 12:57 ABG pCO2 38.5 mm Hg 04/06/19 05:20 POC ABG pO2 107 (80-105) H 04/07/19 12:57 ABG pO2 104.0 mm Hg (80.0-90.0) H 04/06/19 05:20 POC ABG HCO3 25.7 (22-26 mml/L) 04/07/19 12:57 ABG HCO3 22.6 mmol/L (20.0-26.0) 04/06/19 05:20 POC ABG Total CO2 27 (23-27mmol/L) 04/07/19 12:57 POC ABG O2 Sat 98 04/07/19 12:57 ABG O2 Saturation 97.8 % (95.0-99.0) 04/06/19 05:20 ABG O2 Content 10.0 (0.0-44) 04/06/19 05:20 POC ABG Base Excess 1 ((-2) - (+3)mmol/L) 04/07/19 12:57 ABG Base Excess -2.1 mmol/L (-2.0-3.0) L 04/06/19 05:20 ABG Hemoglobin 7.3 gm/dl (14.0-18.0) L 04/06/19 05:20 ABG Carboxyhemoglobin 1.7 % (0.0-5.0) 04/06/19 05:20 ABG Methemoglobin 0.6 % (0.0-1.5) 04/06/19 05:20 Oxyhemoglobin 95.5 % (95.0-99.0) 04/06/19 05:20 FiO2 30 % 04/07/19 12:57 Sodium 145 mmol/L (137-145) 04/15/19 05:11 Potassium 3.2 mmol/L (3.6-5.0) L 04/15/19 05:11 Chloride 102.3 mmol/L (98-107) 04/15/19 05:11 Carbon Dioxide 27 mmol/L (22-30) 04/15/19 05:11 Anion Gap 19 mmol/L 04/15/19 05:11 BUN 44 mg/dL (9-20) H 04/15/19 05:11 Creatinine 3.6 mg/dL (0.8-1.5) H 04/15/19 05:11 Estimated GFR 18 ml/min 04/15/19 05:11 BUN/Creatinine Ratio 12 % 04/15/19 05:11 Glucose 106 mg/dL (75-100) H 04/15/19 05:11 POC Glucose 110 (70-105) H 04/15/19 05:31 Lactic Acid 1.90 mmol/L (0.7-2.0) 03/21/19 21:31 Calcium 12.0 mg/dL (8.4-10.2) H 04/15/19 05:11 Ionized Calcium 3.7 mg/dL (4.8-5.6) L 03/30/19 12:09 Phosphorus 5.00 mg/dL (2.5-4.5) H 04/15/19 05:11 Magnesium 1.90 mg/dL (1.7-2.3) 03/31/19 15:07 Iron 26 ug/dL (49-181) L 04/02/19 05:03 TIBC 138 mcg/dL (250-450) L 04/02/19 05:03 Ferritin 607.0 ng/mL (13.0-400.0) H 04/02/19 05:03 Total Bilirubin 0.50 mg/dL (0.1-1.2) 04/13/19 05:00 Direct Bilirubin 0.4 mg/dL (0-0.2) H 03/31/19 08:20 Indirect Bilirubin 0.1 mg/dL 03/31/19 08:20 AST 21 units/L (5-40) 04/13/19 05:00 ALT 13 units/L (7-56) 04/13/19 05:00 Alkaline Phosphatase 52 units/L (35-129) 04/13/19 05:00 Total Creatine Kinase 62 units/L (55-170) 04/07/19 05:40 CK-MB (CK-2) 54.3 ng/mL (0.0-4.0) H 03/17/19 07:16 CK-MB (CK-2) Rel Index 0.0 (0-4) 03/17/19 07:16 Troponin T 0.058 ng/mL (0.00-0.029) H 03/17/19 07:16 C-Reactive Protein 13.30 mg/dL (0.00-1.30) H 03/20/19 14:45 Total Protein 5.8 g/dL (6.3-8.2) L 04/13/19 05:00 Albumin 2.5 g/dL (3.9-5) L 04/13/19 05:00 Albumin/Globulin Ratio 0.8 % 04/13/19 05:00 Triglycerides 309 mg/dL (2-149) H 03/29/19 06:22 Cholesterol 88 mg/dL (50-199) 03/16/19 22:32 LDL Cholesterol Direct 10 mg/dL (50-130) L 03/16/19 22:32 HDL Cholesterol 7 mg/dL (40-59) L 03/16/19 22:32 Cholesterol/HDL Ratio 12.57 % 03/16/19 22:32 Vitamin B12 903.0 pg/mL (211-911) 04/02/19 05:03 Folate 8.05 ng/mL (7.3-26.0) 04/02/19 05:03 Procalcitonin 25.42 ng/mL (<0.15) 03/27/19 19:21 TSH 2.200 mlU/mL (0.270-4.200) 03/16/19 17:05 Free T4 0.72 ng/dL (0.76-1.46) L 03/16/19 17:05 PTH Intact 329.9 pg/mL (15-65) H 03/25/19 05:00 Urine Color Kathy (Yellow) 04/05/19 16:50 Urine Turbidity Cloudy (Clear) 04/05/19 16:50 Urine pH 5.0 (5.0-7.0) 04/05/19 16:50 Ur Specific [place] 1.018 (1.003-1.030) 04/05/19 16:50 Urine Protein 100 mg/dl mg/dL (Negative) 04/05/19 16:50 Urine Glucose (UA) Neg mg/dL (Negative) 04/05/19 16:50 Urine Ketones Neg mg/dL (Negative) 04/05/19 16:50 Urine Blood Lg (Negative) 04/05/19 16:50 Urine Nitrite Neg (Negative) 04/05/19 16:50 Urine Bilirubin Neg (Negative) 04/05/19 16:50 Urine Urobilinogen < 2.0 mg/dL (<2.0) 04/05/19 16:50 Ur Leukocyte Esterase Tr (Negative) 04/05/19 16:50 Urine WBC (Auto) 40.0 /HPF (0.0-6.0) H 04/05/19 16:50 Urine RBC (Auto) > 182.0 /HPF (0.0-6.0) 04/05/19 16:50 U Epithel Cells (Auto) < 1.0 /HPF (0-13.0) 03/17/19 16:05 Amorphous Crystals 1+ 04/05/19 16:50 Urine Mucus Few /HPF 03/17/19 16:05 Urine Sperm 2+ /HPF ([employer]PER[employer]OR) 03/17/19 16:05 Urine Eosinophils None seen (None Seen) 03/17/19 16:05 Urine Creatinine 106.6 mg/dL (0.1-20.0) H 03/17/19 16:05 Urine Sodium 95 mmol/L 03/17/19 16:05 Vancomycin Trough 11.5 ug/mL (5.0-20.0) 03/18/19 13:19 Random Vancomycin 10.8 ug/mL (0-40.0) 04/14/19 03:55 Salicylates < 0.3 mg/dL (2.8-20.0) L 03/16/19 17:05 Urine Opiates Screen Presumptive negative 03/17/19 16:05 Urine Methadone Screen Presumptive negative 03/17/19 16:05 Acetaminophen < 5.0 ug/mL (10.0-30.0) L 03/16/19 17:05 Ur Barbiturates Screen Presumptive negative 03/17/19 16:05 Ur Phencyclidine Scrn Presumptive negative 03/17/19 16:05 Ur Amphetamines Screen Presumptive negative 03/17/19 16:05 U Benzodiazepines Scrn Presumptive positive 03/17/19 16:05 Urine Cocaine Screen Presumptive negative 03/17/19 16:05 U Marijuana (THC) Screen Presumptive negative 03/17/19 16:05 Drugs of Abuse Note Disclamer 03/17/19 16:05 Plasma/Serum Alcohol < 0.01 % (0-0.07) 03/16/19 17:05 Hepatitis A IgM Ab Non-reactive (NonReactive) 03/18/19 13:18 Hep Bs Antigen Non-reactive (Negative) 03/18/19 13:18 Hep B Core IgM Ab Non-reactive (NonReactive) 03/18/19 13:18 Hepatitis C Antibody Non-reactive (NonReactive) 03/18/19 13:18 HIV 1&2 Antibody Rapid Non react (Non React) 03/17/19 11:52 HIV P24 Antigen Non react (Non React) 03/17/19 11:52 Influenza A (Rapid) Negative (Negative) 03/17/19 17:00 Influenza B (Rapid) Negative (Negative) 03/17/19 17:00 Group A Strep Rapid Negative (Negative) 03/17/19 17:00 Miscellaneous Test Flexitest 1 03/21/19 12:00 Blood Type A POSITIVE 04/02/19 16:34 Antibody Screen Negative 04/02/19 16:34 Crossmatch See Detail 04/02/19 16:34 Active Medications - Current Medications Current Medications: Generic Name Dose Route Start Last Admin Trade Name Freq PRN Reason Stop Dose Admin Acetaminophen 650 mg 04/02/19 23:26 04/15/19 00:27 Tylenol PO 650 mg Q4H PRN Administration Pain, Mild (1-3),temp>100.5 Albuterol 2.5 mg 03/29/19 13:08 Proventil IH Q4HRT PRN Shortness Of Breath Amiodarone HCl 200 mg 04/15/19 22:00 Cordarone PO BID PAOLO Bacitracin 1 applic 04/09/19 02:43 04/11/19 00:20 Antibiotic Oint TP 1 applic PRN PRN Administration upper lip sore/open Bumetanide 2 mg 04/10/19 18:00 04/15/19 05:09 Bumex IV 2 mg BID@0600,1800 PAOLO Administration Dextrose 50 gm 03/19/19 18:39 03/26/19 23:26 D50w (25gm) Vial IV 50 gm PRN PRN Administration Hypoglycemia Epoetin Jet 20,000 unit 03/31/19 10:15 04/13/19 17:41 Procrit SUB-Q 20,000 unit NEYMAR PRN Administration hemodialysis Hydralazine HCl 20 mg 04/14/19 03:00 04/14/19 03:11 Apresoline IV 20 mg Q4H PRN Administration hypertemsion Hydrophilic Ointment 1 applic 03/16/19 15:50 Vaseline Lip Therapy TP Q2HR PRN Dry Lips Cefepime HCl 2 gm in 100 mls @ 200 mls/hr 04/11/19 18:00 04/14/19 17:07 Maxipime/Ns 2 Gm/100 Ml IV 200 mls/hr QPM PAOLO Administration Protocol Sodium Chloride 100 mls @ 999 mls/hr 04/13/19 08:30 Nacl 0.9% IV NEYMAR PRN Hypotension Levofloxacin/Dextrose 500 mg in 100 mls @ 100 mls/hr 04/17/19 10:00 Levaquin 500mg/100ml IV Q48HR PAOLO Lansoprazole 30 mg 04/11/19 10:00 04/15/19 09:22 Prevacid Solutab FEEDTUBE 30 mg BID PAOLO Administration Metoprolol Tartrate 25 mg 04/15/19 11:00 Lopressor PO BID PAOLO Multi-Ingred Cream/Lotion/Oil/Oint 1 applic 03/16/19 15:50 03/19/19 20:10 Artificial Tears Ophth Oint OU 1 applic Q4HR PRN Administration Dry Eye(s) Ondansetron HCl 4 mg 03/16/19 22:21 04/14/19 20:10 Zofran IV 4 mg Q8H PRN Administration Nausea And Vomiting Nutrition/Malnutrition Assess - Dietary Evaluation Nutrition/Malnutrition Findings: Nutrition Notes Start: 03/17/19 14:22 Freq: Status: Active Protocol: Document 04/13/19 10:52 RM (Rec: 04/13/19 10:58 RM [email or web address]) Nutrition Notes Initial or Follow up Reassessment Current Diagnosis Acute Kidney Injury,Heart Failure Other Pertinent Diagnosis on HD, Septic shock,Multiple organ failure, encephalopathy, Aspiration pneu Current Diet Nepro at 50 ml/hr Labs/Tests Na 142 BUN 42 Creat 4.6 K 3.5 Pertinent Medications Zofran, Bumetanide Height 6 ft Weight 148.5 kg [place] Body Weight (kg) 80.90 BMI 44.4 Subjective/Other Information Observed Nepro infusing at goal rate. Per nurse pt is tolerating TF. Percent of energy/protein needs met: 100%/100% Burn Absent Trauma Absent Minimum of two criteria No #1 Nutrition Diagnosis Inadequate oral intake Diagnosis Progress(for reassessment Continues documentation) Is patient on ventilator? No Is Patient Ambulatory and/or Out of Bed No REE-([facility]-confined to bed) 2892.144 Kcal/Kg value to use for calculation 14 Approximate Energy Requirements Using 2079 kcal/Kg Calculation Used for Recommendations Kcal/kg Additional Notes Protein: 97-121g (1.2-1.5g/kg, IBW) Fluids:1 ml/kcal or per MD Nutrition Intervention Nutrition Support: Nepro 1.8 at 50 ml/hr Water flush 150 ml q4hr or per MD Kcal 2,160 Protein (gm) 97 Fluid (mL) 872 Goal #1 TF tolerance Goal #2 Continue to meet at least 75% of calorie and protein needs via TF Anticipated Discharge Needs: Unable to determine at this time Follow-Up By: 04/20/19 Additional Comments Follow for TF tolerance
--- NOTE | 2019-04-15 13:03 | Progress Note ---
Assessment and Plan 1. Acute kidney injury: Vasomotor RUBEN in the setting of shock / volume depletion / Rhabdo. Baseline renal function is unknown. CT abdomen was negative for obstructive nephropathy. Monitor renal function. Intermittent bladder scan less than 100 ml. Renal prognosis is guarded. Avoid nephrotoxic agents. Meds dosage based on GFR. Patient was started on hemodialysis on 03/18/19 due to worsening metabolic acidosis and hyperkalemia. Hemodialysis: 03/18, 03/19, 03/20, 03/22, 03/23, 03/24, 03/26, 03/28, 03/29, 03/31, 04/02, 04/04, 04/06, 04/09, 04/11, 04/13. 2. FEN: Hypokalemia, replete K. Hyponatremia, improved. Metabolic acidosis, on maintenance HD. Volume overload, UF with HD as tolerated. Hypercalcemia, Zemplar and Phoslo were stopped. Monitor lytes. 3. Septic shock: Followed by ID. Currently off pressors. 4. Rhabdomyolysis: Improved. 5. A.fib with RVR: On Amiodarone and Metoprolol. Followed by Cards. 6. Respiratory failure: Extubated. On BIPAP intermittently. 7. Severe anemia: S/p PRBC. On Epogen. 8. Elevated transaminases: Improved. 9. Encephalopathy. Examination: General appearance: well-developed, appears stated age, obese, NG tube noted HEENT: Atraumatic EYES: Pupils reacting to light Neck: supple Respiratory: CTAB, decreased breath sounds Cardiology: regular, S1S2 heard, no murmur Gastrointestinal: obese, BS heard, not tender Integumentary: no rash noted Neurologic: opens eyes, not following command Ext: L UE edematous : some scrotal edema noted Hemodialysis access: R IJ temp catheter Subjective Date of service: 04/15/19 Principal diagnosis: Septic Shock; Ac. hypoxemic resp failure; Renzo. PNA; Rhabdomyolysis; RUBEN Interval history: Patient was seen and examined at the bedside. Objective - Vital Signs Vital signs: Vital Signs - 12hr 04/15/19 04/15/19 04/15/19 01:32 01:35 02:00 Temperature Pulse Rate 96 H 99 H Pulse Rate [ From Monitor] Respiratory 18 18 Rate Blood Pressure 152/84 149/82 O2 Sat by Pulse 98 98 96 Oximetry 04/15/19 04/15/19 04/15/19 03:01 04:00 04:01 Temperature 102.1 F H Pulse Rate 95 H 95 H 97 H Pulse Rate [ 98 H From Monitor] Respiratory 12 20 16 Rate Blood Pressure 152/95 152/95 O2 Sat by Pulse 98 99 99 Oximetry 04/15/19 04/15/19 04/15/19 04:58 05:01 05:09 Temperature 102.1 F H Pulse Rate 93 H 90 Pulse Rate [ From Monitor] Respiratory 16 16 Rate Blood Pressure 129/69 129/69 O2 Sat by Pulse 99 99 Oximetry 04/15/19 04/15/19 04/15/19 05:10 06:01 07:00 Temperature Pulse Rate 92 H 102 H 93 H Pulse Rate [ From Monitor] Respiratory 16 14 Rate Blood Pressure 129/69 128/65 125/75 O2 Sat by Pulse 99 98 Oximetry 04/15/19 04/15/19 04/15/19 08:00 09:00 10:00 Temperature 101.3 F H Pulse Rate 108 H 93 H 81 Pulse Rate [ 96 H From Monitor] Respiratory 13 13 20 Rate Blood Pressure 126/58 146/72 131/69 O2 Sat by Pulse 98 99 99 Oximetry 04/15/19 10:37 Temperature Pulse Rate Pulse Rate [ From Monitor] Respiratory Rate Blood Pressure O2 Sat by Pulse 98 Oximetry - Lab 04/15/19 05:11 04/15/19 05:11 Most recent lab results ABG pH 7.388 pH Units (7.350-7.450) 04/06/19 05:20 ABG pCO2 38.5 mm Hg 04/06/19 05:20 ABG pO2 104.0 mm Hg (80.0-90.0) H 04/06/19 05:20 ABG HCO3 22.6 mmol/L (20.0-26.0) 04/06/19 05:20 ABG O2 Saturation 97.8 % (95.0-99.0) 04/06/19 05:20 Calcium 12.0 mg/dL (8.4-10.2) H 04/15/19 05:11 Phosphorus 5.00 mg/dL (2.5-4.5) H 04/15/19 05:11 Magnesium 1.90 mg/dL (1.7-2.3) 03/31/19 15:07 Urine Creatinine 106.6 mg/dL (0.1-20.0) H 03/17/19 16:05 Urine Sodium 95 mmol/L 03/17/19 16:05 Medications & Allergies - Medications Allergies/Adverse Reactions: Allergies No Known Allergies Allergy (Unverified 03/16/19 17:17) Home Medications: Home Medications Medication Instructions Recorded Confirmed Last Taken Type Unobtainable 03/18/19 03/18/19 Unknown History Active Medications: Generic Name Dose Route Start Last Admin Trade Name Freq PRN Reason Stop Dose Admin Acetaminophen 650 mg 04/02/19 23:26 04/15/19 00:27 Tylenol PO 650 mg Q4H PRN Administration Pain, Mild (1-3),temp>100.5 Albuterol 2.5 mg 03/29/19 13:08 Proventil IH Q4HRT PRN Shortness Of Breath Amiodarone HCl 200 mg 04/15/19 22:00 Cordarone PO BID PAOLO Bacitracin 1 applic 04/09/19 02:43 04/11/19 00:20 Antibiotic Oint TP 1 applic PRN PRN Administration upper lip sore/open Bumetanide 2 mg 04/10/19 18:00 04/15/19 05:09 Bumex IV 2 mg BID@0600,1800 [facility] Administration Dextrose 50 gm 03/19/19 18:39 03/26/19 23:26 D50w (25gm) Vial IV 50 gm PRN PRN Administration Hypoglycemia Epoetin Jet 20,000 unit 03/31/19 10:15 04/13/19 17:41 Procrit SUB-Q 20,000 unit NEYMAR PRN Administration hemodialysis Hydralazine HCl 20 mg 04/14/19 03:00 04/14/19 03:11 Apresoline IV 20 mg Q4H PRN Administration hypertemsion Hydrophilic Ointment 1 applic 03/16/19 15:50 Vaseline Lip Therapy TP Q2HR PRN Dry Lips Cefepime HCl 2 gm in 100 mls @ 200 mls/hr 04/11/19 18:00 04/14/19 17:07 Maxipime/Ns 2 Gm/100 Ml IV 200 mls/hr QPM PAOLO Administration Protocol Sodium Chloride 100 mls @ 999 mls/hr 10/18/19 08:30 Nacl 0.9% IV NEYMAR PRN Hypotension Levofloxacin/Dextrose 500 mg in 100 mls @ 100 mls/hr 04/17/19 10:00 Levaquin 500mg/100ml IV Q48HR PAOLO Lansoprazole 30 mg 04/11/19 10:00 04/15/19 09:22 Prevacid Solutab FEEDTUBE 30 mg BID PAOLO Administration Metoprolol Tartrate 25 mg 04/15/19 11:00 Lopressor PO BID PAOLO Multi-Ingred Cream/Lotion/Oil/Oint 1 applic 03/16/19 15:50 03/19/19 20:10 Artificial Tears Ophth Oint OU 1 applic Q4HR PRN Administration Dry Eye(s) Ondansetron HCl 4 mg 03/16/19 22:21 04/14/19 20:10 Zofran IV 4 mg Q8H PRN Administration Nausea And Vomiting
--- NOTE | 2019-04-15 13:07 | Hem/Onc Progress Note ---
Assessment and Plan 1. h/o Anemia. The patient has history of bleeding. 2. rt Internal jugular partial thrombosis. The patient was started on heparin. This has been held due to bleeding 3. Gastrointestinal bleed. 4. h/o Elevated creatinine kinase. 5. h/o Low calcium. 6. h/o Thrombocytopenia. 7. h/o Renal failure. 8. h/o Intubation. 9. s/p Transfusion support. 10. Leukocytosis. At this time, supportive care may help the patient. The patient's platelet was low at admission. Urine toxicology was negative. awake extubated dvt - off anticoagulation - due to bleeding platelet - > 100 s/p iv iron trial pt was on BIPAP h/o tachycardia - on meds moving arms>legs - Patient Problems (1) DVT (deep venous thrombosis) Current Visit: Yes Status: Acute Subjective Date of service: 04/15/19 Principal diagnosis: anemia - dvt IJ Interval history: awake - moving arms > legs Objective - Exam Narrative Exam: Pain - none now General appearance - awake Performance status limited self care Eyes - no icterus ENT - extubated LNs cervical not palpable Neck - no LN Respiratory Normal Breath sounds - CTA anteriorly CVS S1 S2 + Extremities edema + General GI Soft Rectal deferred male - deferred Skin warm Musculoskeletal arms>legs Neurologically awake - Constitutional Vitals: Last Vital Signs Temp 101.3 F H 04/15/19 08:00 Pulse 81 04/15/19 10:00 Resp 20 04/15/19 10:00 BP 131/69 04/15/19 10:00 Pulse Ox 98 04/15/19 10:37 - Labs Lab Results: Laboratory Results - last 24 hr 04/14/19 04/14/19 04/15/19 18:04 23:28 05:11 WBC 13.0 H RBC 2.93 L Hgb 8.6 L Hct 26.5 L MCV 91 MCH 29 MCHC 32 RDW 16.5 H Plt Count 172 Lymph % (Auto) 12.2 L Spink % (Auto) 9.1 H Eos % (Auto) 0.5 Baso % (Auto) 0.6 Lymph # 1.6 Spink # 1.2 H Eos # 0.1 Baso # 0.1 Seg Neutrophils % 77.6 H Seg Neutrophils # 10.1 H Sodium Potassium Chloride Carbon Dioxide Anion Gap BUN Creatinine Estimated GFR BUN/Creatinine Ratio Glucose POC Glucose 89 112 H Calcium Phosphorus 10/20/19 10/20/19 10/20/19 05:11 05:31 12:11 WBC RBC Hgb Hct MCV MCH MCHC RDW Plt Count Lymph % (Auto) Spink % (Auto) Eos % (Auto) Baso % (Auto) Lymph # Spink # Eos # Baso # Seg Neutrophils % Seg Neutrophils # Sodium 145 Potassium 3.2 L Chloride 102.3 Carbon Dioxide 27 Anion Gap 19 BUN 44 H Creatinine 3.6 H Estimated GFR 18 BUN/Creatinine Ratio 12 Glucose 106 H POC Glucose 110 H 93 Calcium 12.0 H Phosphorus 5.00 H Medications & Allergies - Medications Allergies/Adverse Reactions: Allergies No Known Allergies Allergy (Unverified 03/16/19 17:17) Home Medications: Home Medications Medication Instructions Recorded Confirmed Last Taken Type Unobtainable 03/18/19 03/18/19 Unknown History Active Medications: Generic Name Dose Route Start Last Admin Trade Name Freq PRN Reason Stop Dose Admin Acetaminophen 650 mg 04/02/19 23:26 04/15/19 00:27 Tylenol PO 650 mg Q4H PRN Administration Pain, Mild (1-3),temp>100.5 Albuterol 2.5 mg 03/29/19 13:08 Proventil IH Q4HRT PRN Shortness Of Breath Amiodarone HCl 200 mg 04/15/19 22:00 Cordarone PO BID [facility] Bacitracin 1 applic 04/09/19 02:43 04/11/19 00:20 Antibiotic Oint TP 1 applic PRN PRN Administration upper lip sore/open Bumetanide 2 mg 04/10/19 18:00 04/15/19 05:09 Bumex IV 2 mg BID@0600,1800 [facility] Administration Dextrose 50 gm 03/19/19 18:39 03/26/19 23:26 D50w (25gm) Vial IV 50 gm PRN PRN Administration Hypoglycemia Epoetin Jet 20,000 unit 03/31/19 10:15 04/13/19 17:41 Procrit SUB-Q 20,000 unit NEYMAR PRN Administration hemodialysis Hydralazine HCl 20 mg 04/14/19 03:00 04/14/19 03:11 Apresoline IV 20 mg Q4H PRN Administration hypertemsion Hydrophilic Ointment 1 applic 03/16/19 15:50 Vaseline Lip Therapy TP Q2HR PRN Dry Lips Cefepime HCl 2 gm in 100 mls @ 200 mls/hr 04/11/19 18:00 04/14/19 17:07 Maxipime/Ns 2 Gm/100 Ml IV 200 mls/hr QPM PAOLO Administration Protocol Sodium Chloride 100 mls @ 999 mls/hr 04/13/19 08:30 Nacl 0.9% IV NEYMAR PRN Hypotension Levofloxacin/Dextrose 500 mg in 100 mls @ 100 mls/hr 04/17/19 10:00 Levaquin 500mg/100ml IV Q48HR PAOLO Lansoprazole 30 mg 04/11/19 10:00 04/15/19 09:22 Prevacid Solutab FEEDTUBE 30 mg BID [facility] Administration Metoprolol Tartrate 25 mg 04/15/19 11:00 Lopressor PO BID PA[facility]O Multi-Ingred Cream/Lotion/Oil/Oint 1 applic 03/16/19 15:50 03/19/19 20:10 Artificial Tears Ophth Oint OU 1 applic Q4HR PRN Administration Dry Eye(s) Ondansetron HCl 4 mg 03/16/19 22:21 04/14/19 20:10 Zofran IV 4 mg Q8H PRN Administration Nausea And Vomiting Potassium Chloride 40 meq 04/15/19 13:03 K-Dur PO 04/15/19 13:04 ONCE ONE
[2019-04-15] MEDS ORDERED: POTASSIUM CHLORIDE ER 20 MEQ TAB PO ONE (14:00)
[2019-04-15] MEDS: METOPROLOL TARTRATE 25 MG TAB PO SCH ×2 (14:46→21:13)
--- NOTE | 2019-04-15 14:57 | Progress Note ---
Assessment and Plan Severe sepsis with shock. Right axilla abscess versus localized pannus/fatty collection. Acute hypoxemic respiratory failure, on mechanical ventilator support. Likely aspiration pneumonia, bilateral. Morbid obesity. Rhabdomyolysis. Acute kidney injury. Leukocytosis. Morbid obesity. Metabolic acidosis. Lactic acidosis. Hypomagnesemia. Elevated serum transaminases/possible shock liver. Acute encephalopathy, toxic metabolic versus anoxic (Discussed Code status with him with RN in room and he very emphatically wants to be a FULL CODE) - continue BIPAP scheduled qhs - will need outpatient PSG - continue aggressive PT/OT as tolerated - continue ST evaluation and advance diet as tolerated (continue tube feeds at goal rate as tolerated for now) - continue prn albuterol treatments - continue to wean FiO2 for sats > 90% - continue HD/UF per nephrology prescription for toxin and volume control - continue oral amiodarone for A-fib - prn supportive blood transfusions to keep serum Hb > 7.0 - Monitor hemodynamics closely - Transfuse PRBC's to keep HgB > 7g/dL - continue empiric broad spectrum antiinfective's per ID recommendations (de- escalate based on clinical and microbiologic data) - continue mobility protocols and off loading as tolerated for pressure ulcer prophylaxis - continue to avoid nephrotoxins, adjust all medications for GFR and CRCL - continue GI & VTE prophylaxis with - accuchecks with glycemic control per SSI for target BG of 140-180 mg/dl acutely - continue other care per attending / other consultants ... re-evaluate in am & prn CONDITION: IMPROVED PROGNOSIS: FAIR CODE STATUS: FULL CODE Subjective Date of service: 04/15/19 Principal diagnosis: Septic Shock; Ac. hypoxemic resp failure; Renzo. PNA; Rhabdomyolysis; RUBEN Interval history: Patient is seen today for: Severe sepsis with shock; Acute hypoxemic respiratory failure; Aspiration pneumonia; Morbid obesity; Rhabdomyolysis; Acute kidney inj ury; Morbid obesity; Elevated serum transaminases/possible shock liver; Acute encephalopathy (Toxic/Met) Seen and examined at bedside; 24hour events reviewed; nursing and respiratory care staff consulted; no adverse overnight events reported to me; resting peacefully in bed; no cough or expectoration; No new issues otherwise Objective Vital Signs - 12hr 04/15/19 04/15/19 04/15/19 03:01 04:00 04:01 Temperature 102.1 F H Pulse Rate 95 H 95 H 97 H Pulse Rate [ 98 H From Monitor] Respiratory 12 20 16 Rate Blood Pressure 152/95 152/95 O2 Sat by Pulse 98 99 99 Oximetry 04/15/19 04/15/19 04/15/19 04:58 05:01 05:09 Temperature 102.1 F H Pulse Rate 93 H 90 Pulse Rate [ From Monitor] Respiratory 16 16 Rate Blood Pressure 129/69 129/69 O2 Sat by Pulse 99 99 Oximetry 04/15/19 04/15/19 04/15/19 05:10 06:01 07:00 Temperature Pulse Rate 92 H 102 H 93 H Pulse Rate [ From Monitor] Respiratory 16 14 Rate Blood Pressure 129/69 128/65 125/75 O2 Sat by Pulse 99 98 Oximetry 04/15/19 04/15/19 04/15/19 08:00 09:00 10:00 Temperature 101.3 F H Pulse Rate 108 H 93 H 81 Pulse Rate [ 96 H From Monitor] Respiratory 13 13 20 Rate Blood Pressure 126/58 146/72 131/69 O2 Sat by Pulse 98 99 99 Oximetry 04/15/19 04/15/19 04/15/19 10:37 11:00 12:00 Temperature 101.3 F H Pulse Rate 96 H 94 H Pulse Rate [ 94 H From Monitor] Respiratory 25 H 20 Rate Blood Pressure 141/72 134/76 O2 Sat by Pulse 98 97 97 Oximetry 04/15/19 04/15/19 13:01 14:00 Temperature Pulse Rate 95 H 92 H Pulse Rate [ From Monitor] Respiratory 19 18 Rate Blood Pressure 134/66 139/74 O2 Sat by Pulse 98 99 Oximetry Constitutional: no acute distress, other (middle aged morbidly obese CM, normocephalic with incresed respiratory effort at rest) Eyes: icteric ENT: oropharynx moist, other (extubated) Neck: supple, no lymphadenopathy, no JVD, other (large neck circumference) Effort: mildly labored Ascultation: Bilateral: rhonchi (scant) Percussion: Bilateral: not dull Cardiovascular: irregular rhythm, other ( S1,S2) Gastrointestinal: hypoactive bowel sounds, soft, non-tender, non-distended, other (obese) Integumentary: normal, other (blisters with some weeping over the extremities) Extremities: no cyanosis, pink and warm, pulses normal, no ischemia or petechiae Neurologic: normal mental status, non-focal exam (grossly), pupils equal and round, CN II-XII normal, other (very weak) Psychiatric: mood appropriate, affect normal CBC and BMP: 04/25/19 05:58 04/26/19 07:22 ABG, PT/INR, D-dimer: ABG POC ABG pH 7.401 (7.35-7.45) 04/07/19 12:57 ABG pH 7.388 pH Units (7.350-7.450) 04/06/19 05:20 POC ABG pCO2 41.5 (35-45) 04/07/19 12:57 ABG pCO2 38.5 mm Hg 04/06/19 05:20 POC ABG pO2 107 (80-105) H 04/07/19 12:57 ABG pO2 104.0 mm Hg (80.0-90.0) H 04/06/19 05:20 POC ABG HCO3 25.7 (22-26 mml/L) 04/07/19 12:57 POC ABG Total CO2 27 (23-27mmol/L) 04/07/19 12:57 POC ABG O2 Sat 98 04/07/19 12:57 ABG O2 Saturation 97.8 % (95.0-99.0) 04/06/19 05:20 PT/INR, D-dimer PT 15.3 Sec. (12.2-14.9) H 03/29/19 11:48 INR 1.24 (0.87-1.13) H 03/29/19 11:48 D-Dimer 4845.98 ng/mlDDU (0-234) H 03/28/19 12:00 Abnormal lab findings: Abnormal Labs 03/16/19 03/16/19 03/16/19 15:32 16:03 16:05 WBC 27.0 H RBC 5.55 H Hgb 15.7 H Hct 47.1 H MCV RDW Plt Count 75 L Lymph % (Auto) [place] % (Auto) Lymph # [place] # Seg Neutrophils % Seg Neuts % (Manual) 85.0 H Lymphocytes % (Manual) 2.0 L Monocytes % (Manual) Nucleated RBC % Seg Neutrophils # Seg Neutrophils # Man 23.0 H Lymphocytes # (Manual) 0.5 L Monocytes # (Manual) PT INR D-Dimer Heparin Anti-Xa Level POC ABG pH ABG pH POC ABG pCO2 POC ABG pO2 ABG pO2 ABG HCO3 ABG O2 Saturation ABG Base Excess ABG Hemoglobin Oxyhemoglobin Sodium 127 L Potassium Chloride 87.8 L Carbon Dioxide 17 L BUN 49 H Creatinine 5.8 H Glucose 150 H POC Glucose 118 H Lactic Acid Calcium 6.6 L Ionized Calcium Phosphorus Magnesium 1.10 L Iron TIBC Ferritin Total Bilirubin Direct Bilirubin AST ALT Alkaline Phosphatase Total Creatine Kinase 31646 H CK-MB (CK-2) Troponin T C-Reactive Protein Total Protein Albumin Triglycerides LDL Cholesterol Direct HDL Cholesterol Free T4 PTH Intact Urine WBC (Auto) Urine Creatinine Salicylates Acetaminophen Crossmatch 03/16/19 03/16/19 03/16/19 16:59 17:05 17:05 WBC RBC Hgb Hct MCV RDW Plt Count Lymph % (Auto) [place] % (Auto) Lymph # [place] # Seg Neutrophils % Seg Neuts % (Manual) Lymphocytes % (Manual) Monocytes % (Manual) Nucleated RBC % Seg Neutrophils # Seg Neutrophils # Man Lymphocytes # (Manual) Monocytes # (Manual) PT INR D-Dimer Heparin Anti-Xa Level POC ABG pH 7.297 L ABG pH POC ABG pCO2 33.0 L POC ABG pO2 ABG pO2 ABG HCO3 ABG O2 Saturation ABG Base Excess ABG Hemoglobin Oxyhemoglobin Sodium Potassium Chloride Carbon Dioxide BUN Creatinine Glucose POC Glucose Lactic Acid Calcium Ionized Calcium Phosphorus Magnesium Iron TIBC Ferritin Total Bilirubin Direct Bilirubin AST ALT Alkaline Phosphatase Total Creatine Kinase 89140 H CK-MB (CK-2) 83.1 H Troponin T C-Reactive Protein Total Protein Albumin Triglycerides LDL Cholesterol Direct HDL Cholesterol Free T4 0.72 L PTH Intact Urine WBC (Auto) Urine Creatinine Salicylates Acetaminophen Crossmatch 03/16/19 03/16/19 03/16/19 17:05 17:05 17:05 WBC RBC Hgb Hct MCV RDW Plt Count Lymph % (Auto) [place] % (Auto) Lymph # [place] # Seg Neutrophils % Seg Neuts % (Manual) Lymphocytes % (Manual) Monocytes % (Manual) Nucleated RBC % Seg Neutrophils # Seg Neutrophils # Man Lymphocytes # (Manual) Monocytes # (Manual) PT INR D-Dimer Heparin Anti-Xa Level POC ABG pH ABG pH POC ABG pCO2 POC ABG pO2 ABG pO2 ABG HCO3 ABG O2 Saturation ABG Base Excess ABG Hemoglobin Oxyhemoglobin Sodium Potassium Chloride Carbon Dioxide BUN Creatinine Glucose POC Glucose Lactic Acid 5.10 H* Calcium Ionized Calcium Phosphorus Magnesium Iron TIBC Ferritin Total Bilirubin Direct Bilirubin AST ALT Alkaline Phosphatase Total Creatine Kinase CK-MB (CK-2) Troponin T C-Reactive Protein Total Protein Albumin Triglycerides LDL Cholesterol Direct HDL Cholesterol Free T4 PTH Intact Urine WBC (Auto) Urine Creatinine Salicylates < 0.3 L Acetaminophen < 5.0 L Crossmatch 03/16/19 03/16/19 03/16/19 17:05 17:05 20:35 WBC RBC Hgb Hct MCV RDW Plt Count Lymph % (Auto) [place] % (Auto) Lymph # [place] # Seg Neutrophils % Seg Neuts % (Manual) Lymphocytes % (Manual) Monocytes % (Manual) Nucleated RBC % Seg Neutrophils # Seg Neutrophils # Man Lymphocytes # (Manual) Monocytes # (Manual) PT 15.9 H INR 1.30 H D-Dimer Heparin Anti-Xa Level POC ABG pH ABG pH POC ABG pCO2 POC ABG pO2 ABG pO2 ABG HCO3 ABG O2 Saturation ABG Base Excess ABG Hemoglobin Oxyhemoglobin Sodium Potassium Chloride Carbon Dioxide BUN Creatinine Glucose POC Glucose Lactic Acid 3.30 H* Calcium Ionized Calcium Phosphorus Magnesium Iron TIBC Ferritin Total Bilirubin 6.20 H Direct Bilirubin 5.9 H AST 800 H ALT 120 H Alkaline Phosphatase Total Creatine Kinase CK-MB (CK-2) Troponin T C-Reactive Protein Total Protein 4.4 L Albumin 2.4 L Triglycerides LDL Cholesterol Direct HDL Cholesterol Free T4 PTH Intact Urine WBC (Auto) Urine Creatinine Salicylates Acetaminophen Crossmatch 03/16/19 03/16/19 03/16/19 21:45 22:32 Unknown WBC RBC Hgb Hct MCV RDW Plt Count Lymph % (Auto) [place] % (Auto) Lymph # [place] # Seg Neutrophils % Seg Neuts % (Manual) Lymphocytes % (Manual) Monocytes % (Manual) Nucleated RBC % Seg Neutrophils # Seg Neutrophils # Man Lymphocytes # (Manual) Monocytes # (Manual) PT INR D-Dimer Heparin Anti-Xa Level POC ABG pH ABG pH POC ABG pCO2 POC ABG pO2 ABG pO2 ABG HCO3 ABG O2 Saturation ABG Base Excess ABG Hemoglobin Oxyhemoglobin Sodium Potassium Chloride Carbon Dioxide BUN Creatinine Glucose POC Glucose Lactic Acid 3.30 H* 3.00 H* Calcium Ionized Calcium Phosphorus Magnesium Iron TIBC Ferritin Total Bilirubin Direct Bilirubin AST ALT Alkaline Phosphatase Total Creatine Kinase CK-MB (CK-2) Troponin T 0.047 H D C-Reactive Protein Total Protein Albumin Triglycerides 395 H LDL Cholesterol Direct 10 L HDL Cholesterol 7 L Free T4 PTH Intact Urine WBC (Auto) Urine Creatinine Salicylates Acetaminophen Crossmatch 03/17/19 03/17/19 03/17/19 03:45 03:45 03:45 WBC RBC Hgb Hct MCV RDW Plt Count Lymph % (Auto) [place] % (Auto) Lymph # [place] # Seg Neutrophils % Seg Neuts % (Manual) Lymphocytes % (Manual) Monocytes % (Manual) Nucleated RBC % Seg Neutrophils # Seg Neutrophils # Man Lymphocytes # (Manual) Monocytes # (Manual) PT INR D-Dimer Heparin Anti-Xa Level POC ABG pH ABG pH POC ABG pCO2 POC ABG pO2 ABG pO2 ABG HCO3 ABG O2 Saturation ABG Base Excess ABG Hemoglobin Oxyhemoglobin Sodium 131 L Potassium Chloride 88.9 L Carbon Dioxide BUN 53 H Creatinine 7.1 H Glucose POC Glucose Lactic Acid 4.10 H* Calcium 5.4 L* D Ionized Calcium Phosphorus 7.30 H Magnesium 1.60 L Iron TIBC Ferritin Total Bilirubin 5.90 H Direct Bilirubin AST 801 H ALT 109 H Alkaline Phosphatase Total Creatine Kinase 08602 H 97000 H CK-MB (CK-2) 41.5 H Troponin T 0.054 H C-Reactive Protein Total Protein 4.5 L Albumin 2.0 L Triglycerides LDL Cholesterol Direct HDL Cholesterol Free T4 PTH Intact Urine WBC (Auto) Urine Creatinine Salicylates Acetaminophen Crossmatch 03/17/19 03/17/19 03/17/19 05:47 07:16 07:16 WBC RBC Hgb Hct MCV RDW Plt Count Lymph % (Auto) [place] % (Auto) Lymph # [place] # Seg Neutrophils % Seg Neuts % (Manual) Lymphocytes % (Manual) Monocytes % (Manual) Nucleated RBC % Seg Neutrophils # Seg Neutrophils # Man Lymphocytes # (Manual) Monocytes # (Manual) PT INR D-Dimer Heparin Anti-Xa Level POC ABG pH 7.193 L ABG pH POC ABG pCO2 45.2 H POC ABG pO2 65 L ABG pO2 ABG HCO3 ABG O2 Saturation ABG Base Excess ABG Hemoglobin Oxyhemoglobin Sodium Potassium Chloride Carbon Dioxide BUN Creatinine Glucose POC Glucose Lactic Acid 5.50 H* Calcium Ionized Calcium Phosphorus Magnesium Iron TIBC Ferritin Total Bilirubin Direct Bilirubin AST ALT Alkaline Phosphatase Total Creatine Kinase 85265 H CK-MB (CK-2) 54.3 H Troponin T 0.058 H C-Reactive Protein Total Protein Albumin Triglycerides LDL Cholesterol Direct HDL Cholesterol Free T4 PTH Intact Urine WBC (Auto) Urine Creatinine Salicylates Acetaminophen Crossmatch 03/17/19 03/17/19 03/17/19 11:52 12:51 13:01 WBC RBC Hgb Hct MCV RDW Plt Count Lymph % (Auto) [place] % (Auto) Lymph # [place] # Seg Neutrophils % Seg Neuts % (Manual) Lymphocytes % (Manual) Monocytes % (Manual) Nucleated RBC % Seg Neutrophils # Seg Neutrophils # Man Lymphocytes # (Manual) Monocytes # (Manual) PT INR D-Dimer Heparin Anti-Xa Level POC ABG pH 7.154 L ABG pH POC ABG pCO2 34.3 L POC ABG pO2 73 L ABG pO2 ABG HCO3 ABG O2 Saturation ABG Base Excess ABG Hemoglobin Oxyhemoglobin Sodium Potassium Chloride Carbon Dioxide BUN Creatinine Glucose POC Glucose 60 L Lactic Acid 8.20 H* Calcium Ionized Calcium Phosphorus Magnesium Iron TIBC Ferritin Total Bilirubin Direct Bilirubin AST ALT Alkaline Phosphatase Total Creatine Kinase CK-MB (CK-2) Troponin T C-Reactive Protein Total Protein Albumin Triglycerides LDL Cholesterol Direct HDL Cholesterol Free T4 PTH Intact Urine WBC (Auto) Urine Creatinine Salicylates Acetaminophen Crossmatch 03/17/19 03/17/19 03/17/19 14:37 14:37 14:37 WBC 29.3 H RBC Hgb Hct MCV RDW 15.8 H Plt Count 45 L Lymph % (Auto) [place] % (Auto) Lymph # [place] # Seg Neutrophils % Seg Neuts % (Manual) 81.0 H Lymphocytes % (Manual) 1.0 L Monocytes % (Manual) 15.0 H Nucleated RBC % Seg Neutrophils # Seg Neutrophils # Man 23.7 H Lymphocytes # (Manual) 0.3 L Monocytes # (Manual) 4.4 H PT INR D-Dimer Heparin Anti-Xa Level POC ABG pH ABG pH POC ABG pCO2 POC ABG pO2 ABG pO2 ABG HCO3 ABG O2 Saturation ABG Base Excess ABG Hemoglobin Oxyhemoglobin Sodium Potassium Chloride Carbon Dioxide BUN Creatinine Glucose POC Glucose Lactic Acid 4.90 H* Calcium Ionized Calcium Phosphorus Magnesium Iron TIBC Ferritin Total Bilirubin Direct Bilirubin AST ALT Alkaline Phosphatase Total Creatine Kinase CK-MB (CK-2) Troponin T C-Reactive Protein 24.90 H Total Protein Albumin Triglycerides LDL Cholesterol Direct HDL Cholesterol Free T4 PTH Intact Urine WBC (Auto) Urine Creatinine Salicylates Acetaminophen Crossmatch 03/17/19 03/17/19 03/17/19 16:05 16:05 17:02 WBC RBC Hgb Hct MCV RDW Plt Count Lymph % (Auto) [place] % (Auto) Lymph # [place] # Seg Neutrophils % Seg Neuts % (Manual) Lymphocytes % (Manual) Monocytes % (Manual) Nucleated RBC % Seg Neutrophils # Seg Neutrophils # Man Lymphocytes # (Manual) Monocytes # (Manual) PT INR D-Dimer Heparin Anti-Xa Level POC ABG pH 7.183 L ABG pH POC ABG pCO2 POC ABG pO2 65 L ABG pO2 ABG HCO3 ABG O2 Saturation ABG Base Excess ABG Hemoglobin Oxyhemoglobin Sodium Potassium Chloride Carbon Dioxide BUN Creatinine Glucose POC Glucose Lactic Acid Calcium Ionized Calcium Phosphorus Magnesium Iron TIBC Ferritin Total Bilirubin Direct Bilirubin AST ALT Alkaline Phosphatase Total Creatine Kinase CK-MB (CK-2) Troponin T C-Reactive Protein Total Protein Albumin Triglycerides LDL Cholesterol Direct HDL Cholesterol Free T4 PTH Intact Urine WBC (Auto) 30.0 H Urine Creatinine 106.6 H Salicylates Acetaminophen Crossmatch 03/18/19 03/18/19 03/18/19 05:12 05:16 05:53 WBC RBC Hgb Hct MCV RDW Plt Count Lymph % (Auto) [place] % (Auto) Lymph # [place] # Seg Neutrophils % Seg Neuts % (Manual) Lymphocytes % (Manual) Monocytes % (Manual) Nucleated RBC % Seg Neutrophils # Seg Neutrophils # Man Lymphocytes # (Manual) Monocytes # (Manual) PT INR D-Dimer Heparin Anti-Xa Level POC ABG pH 7.257 L ABG pH POC ABG pCO2 31.6 L POC ABG pO2 69 L ABG pO2 ABG HCO3 ABG O2 Saturation ABG Base Excess ABG Hemoglobin Oxyhemoglobin Sodium Potassium Chloride Carbon Dioxide BUN Creatinine Glucose POC Glucose 141 H Lactic Acid 5.00 H* Calcium Ionized Calcium Phosphorus Magnesium Iron TIBC Ferritin Total Bilirubin Direct Bilirubin AST ALT Alkaline Phosphatase Total Creatine Kinase CK-MB (CK-2) Troponin T C-Reactive Protein Total Protein Albumin Triglycerides LDL Cholesterol Direct HDL Cholesterol Free T4 PTH Intact Urine WBC (Auto) Urine Creatinine Salicylates Acetaminophen Crossmatch 03/18/19 03/18/19 03/18/19 06:57 08:40 08:40 WBC 31.7 H RBC Hgb Hct MCV RDW 15.5 H Plt Count 35 L Lymph % (Auto) [place] % (Auto) Lymph # [place] # Seg Neutrophils % Seg Neuts % (Manual) Lymphocytes % (Manual) Monocytes % (Manual) Nucleated RBC % Seg Neutrophils # Seg Neutrophils # Man Lymphocytes # (Manual) Monocytes # (Manual) PT INR D-Dimer Heparin Anti-Xa Level POC ABG pH ABG pH POC ABG pCO2 POC ABG pO2 ABG pO2 ABG HCO3 ABG O2 Saturation ABG Base Excess ABG Hemoglobin Oxyhemoglobin Sodium 132 L Potassium 5.5 H D Chloride 88.5 L Carbon Dioxide 18 L BUN 71 H Creatinine 8.1 H Glucose 205 H POC Glucose Lactic Acid 5.00 H* Calcium 4.1 L* D Ionized Calcium Phosphorus Magnesium 2.40 H Iron TIBC Ferritin Total Bilirubin 7.50 H Direct Bilirubin AST 1088 H ALT 159 H Alkaline Phosphatase 190 H Total Creatine Kinase 894955 H CK-MB (CK-2) Troponin T C-Reactive Protein Total Protein 4.7 L Albumin 1.8 L Triglycerides LDL Cholesterol Direct HDL Cholesterol Free T4 PTH Intact Urine WBC (Auto) Urine Creatinine Salicylates Acetaminophen Crossmatch 03/18/19 03/18/19 03/18/19 12:33 12:50 13:19 WBC RBC Hgb Hct MCV RDW Plt Count Lymph % (Auto) [place] % (Auto) Lymph # [place] # Seg Neutrophils % Seg Neuts % (Manual) Lymphocytes % (Manual) Monocytes % (Manual) Nucleated RBC % Seg Neutrophils # Seg Neutrophils # Man Lymphocytes # (Manual) Monocytes # (Manual) PT INR D-Dimer Heparin Anti-Xa Level POC ABG pH 7.282 L ABG pH POC ABG pCO2 POC ABG pO2 67 L ABG pO2 ABG HCO3 ABG O2 Saturation ABG Base Excess ABG Hemoglobin Oxyhemoglobin Sodium Potassium Chloride Carbon Dioxide BUN Creatinine Glucose POC Glucose 129 H Lactic Acid 3.30 H* Calcium Ionized Calcium Phosphorus Magnesium Iron TIBC Ferritin Total Bilirubin Direct Bilirubin AST ALT Alkaline Phosphatase Total Creatine Kinase CK-MB (CK-2) Troponin T C-Reactive Protein Total Protein Albumin Triglycerides LDL Cholesterol Direct HDL Cholesterol Free T4 PTH Intact Urine WBC (Auto) Urine Creatinine Salicylates Acetaminophen Crossmatch 03/18/19 03/18/19 03/18/19 13:19 16:50 18:11 WBC RBC Hgb Hct MCV RDW Plt Count Lymph % (Auto) [place] % (Auto) Lymph # [place] # Seg Neutrophils % Seg Neuts % (Manual) Lymphocytes % (Manual) Monocytes % (Manual) Nucleated RBC % Seg Neutrophils # Seg Neutrophils # Man Lymphocytes # (Manual) Monocytes # (Manual) PT INR D-Dimer Heparin Anti-Xa Level POC ABG pH ABG pH POC ABG pCO2 POC ABG pO2 59 L ABG pO2 ABG HCO3 ABG O2 Saturation ABG Base Excess ABG Hemoglobin Oxyhemoglobin Sodium Potassium Chloride Carbon Dioxide BUN Creatinine Glucose POC Glucose 151 H Lactic Acid Calcium 4.2 L* Ionized Calcium Phosphorus Magnesium Iron TIBC Ferritin Total Bilirubin Direct Bilirubin AST ALT Alkaline Phosphatase Total Creatine Kinase 839380 H CK-MB (CK-2) Troponin T C-Reactive Protein Total Protein Albumin Triglycerides LDL Cholesterol Direct HDL Cholesterol Free T4 PTH Intact Urine WBC (Auto) Urine Creatinine Salicylates Acetaminophen Crossmatch 03/18/19 03/18/19 03/19/19 18:20 23:39 01:42 WBC RBC Hgb Hct MCV RDW Plt Count Lymph % (Auto) [place] % (Auto) Lymph # [place] # Seg Neutrophils % Seg Neuts % (Manual) Lymphocytes % (Manual) Monocytes % (Manual) Nucleated RBC % Seg Neutrophils # Seg Neutrophils # Man Lymphocytes # (Manual) Monocytes # (Manual) PT INR D-Dimer Heparin Anti-Xa Level POC ABG pH 7.345 L ABG pH 7.285 L POC ABG pCO2 POC ABG pO2 59 L ABG pO2 44.0 L ABG HCO3 ABG O2 Saturation 70.9 L ABG Base Excess -5.7 L ABG Hemoglobin 11.9 L Oxyhemoglobin 69.6 L Sodium Potassium Chloride Carbon Dioxide BUN Creatinine Glucose POC Glucose 152 H Lactic Acid Calcium Ionized Calcium Phosphorus Magnesium Iron TIBC Ferritin Total Bilirubin Direct Bilirubin AST ALT Alkaline Phosphatase Total Creatine Kinase CK-MB (CK-2) Troponin T C-Reactive Protein Total Protein Albumin Triglycerides LDL Cholesterol Direct HDL Cholesterol Free T4 PTH Intact Urine WBC (Auto) Urine Creatinine Salicylates Acetaminophen Crossmatch 03/19/19 03/19/19 03/19/19 04:00 04:00 05:35 WBC 36.5 H RBC Hgb Hct MCV RDW 15.8 H Plt Count 35 L Lymph % (Auto) [place] % (Auto) Lymph # [place] # Seg Neutrophils % Seg Neuts % (Manual) Lymphocytes % (Manual) Monocytes % (Manual) Nucleated RBC % Seg Neutrophils # Seg Neutrophils # Man Lymphocytes # (Manual) Monocytes # (Manual) PT INR D-Dimer Heparin Anti-Xa Level POC ABG pH ABG pH 7.265 L POC ABG pCO2 POC ABG pO2 ABG pO2 35.4 L* ABG HCO3 ABG O2 Saturation 54.4 L ABG Base Excess -6.7 L ABG Hemoglobin 12.9 L Oxyhemoglobin 53.4 L Sodium 132 L Potassium 5.7 H Chloride 89.8 L Carbon Dioxide 19 L BUN 62 H Creatinine 6.4 H Glucose 151 H POC Glucose Lactic Acid Calcium 5.2 L* D Ionized Calcium Phosphorus Magnesium Iron TIBC Ferritin Total Bilirubin 7.80 H Direct Bilirubin AST 682 H ALT 130 H Alkaline Phosphatase 167 H Total Creatine Kinase CK-MB (CK-2) Troponin T C-Reactive Protein Total Protein 4.8 L Albumin 2.3 L Triglycerides LDL Cholesterol Direct HDL Cholesterol Free T4 PTH Intact Urine WBC (Auto) Urine Creatinine Salicylates Acetaminophen Crossmatch 03/19/19 03/19/19 03/19/19 05:49 09:16 09:50 WBC RBC Hgb Hct MCV RDW Plt Count Lymph % (Auto) [place] % (Auto) Lymph # [place] # Seg Neutrophils % Seg Neuts % (Manual) Lymphocytes % (Manual) Monocytes % (Manual) Nucleated RBC % Seg Neutrophils # Seg Neutrophils # Man Lymphocytes # (Manual) Monocytes # (Manual) PT INR D-Dimer Heparin Anti-Xa Level POC ABG pH 7.222 L ABG pH POC ABG pCO2 56.6 H POC ABG pO2 ABG pO2 ABG HCO3 ABG O2 Saturation ABG Base Excess ABG Hemoglobin Oxyhemoglobin Sodium Potassium Chloride Carbon Dioxide BUN Creatinine Glucose POC Glucose 154 H Lactic Acid 2.70 H* Calcium Ionized Calcium Phosphorus Magnesium Iron TIBC Ferritin Total Bilirubin Direct Bilirubin AST ALT Alkaline Phosphatase Total Creatine Kinase CK-MB (CK-2) Troponin T C-Reactive Protein Total Protein Albumin Triglycerides LDL Cholesterol Direct HDL Cholesterol Free T4 PTH Intact Urine WBC (Auto) Urine Creatinine Salicylates Acetaminophen Crossmatch 03/19/19 03/19/19 03/19/19 09:50 11:28 17:58 WBC RBC Hgb Hct MCV RDW Plt Count Lymph % (Auto) [place] % (Auto) Lymph # [place] # Seg Neutrophils % Seg Neuts % (Manual) Lymphocytes % (Manual) Monocytes % (Manual) Nucleated RBC % Seg Neutrophils # Seg Neutrophils # Man Lymphocytes # (Manual) Monocytes # (Manual) PT INR D-Dimer Heparin Anti-Xa Level POC ABG pH 7.250 L ABG pH POC ABG pCO2 52.6 H POC ABG pO2 ABG pO2 ABG HCO3 ABG O2 Saturation ABG Base Excess ABG Hemoglobin Oxyhemoglobin Sodium Potassium Chloride Carbon Dioxide BUN Creatinine Glucose POC Glucose 160 H Lactic Acid Calcium Ionized Calcium Phosphorus Magnesium Iron TIBC Ferritin Total Bilirubin Direct Bilirubin AST ALT Alkaline Phosphatase Total Creatine Kinase 90526 H CK-MB (CK-2) Troponin T C-Reactive Protein Total Protein Albumin Triglycerides LDL Cholesterol Direct HDL Cholesterol Free T4 PTH Intact Urine WBC (Auto) Urine Creatinine Salicylates Acetaminophen Crossmatch 03/19/19 03/19/19 03/20/19 19:48 21:03 02:16 WBC RBC Hgb Hct MCV RDW Plt Count Lymph % (Auto) [place] % (Auto) Lymph # [place] # Seg Neutrophils % Seg Neuts % (Manual) Lymphocytes % (Manual) Monocytes % (Manual) Nucleated RBC % Seg Neutrophils # Seg Neutrophils # Man Lymphocytes # (Manual) Monocytes # (Manual) PT INR D-Dimer Heparin Anti-Xa Level POC ABG pH 7.279 L ABG pH POC ABG pCO2 50.3 H POC ABG pO2 129 H ABG pO2 ABG HCO3 ABG O2 Saturation ABG Base Excess ABG Hemoglobin Oxyhemoglobin Sodium Potassium Chloride Carbon Dioxide BUN Creatinine Glucose POC Glucose 119 H 119 H Lactic Acid Calcium Ionized Calcium Phosphorus Magnesium Iron TIBC Ferritin Total Bilirubin Direct Bilirubin AST ALT Alkaline Phosphatase Total Creatine Kinase CK-MB (CK-2) Troponin T C-Reactive Protein Total Protein Albumin Triglycerides LDL Cholesterol Direct HDL Cholesterol Free T4 PTH Intact Urine WBC (Auto) Urine Creatinine Salicylates Acetaminophen Crossmatch 03/20/19 03/20/19 03/20/19 04:23 05:05 09:30 WBC 36.3 H RBC Hgb Hct MCV RDW 15.5 H Plt Count 29 L Lymph % (Auto) [place] % (Auto) Lymph # [place] # Seg Neutrophils % Seg Neuts % (Manual) Lymphocytes % (Manual) Monocytes % (Manual) Nucleated RBC % Seg Neutrophils # Seg Neutrophils # Man Lymphocytes # (Manual) Monocytes # (Manual) PT INR D-Dimer Heparin Anti-Xa Level POC ABG pH ABG pH POC ABG pCO2 POC ABG pO2 280 H ABG pO2 ABG HCO3 ABG O2 Saturation ABG Base Excess ABG Hemoglobin Oxyhemoglobin Sodium Potassium Chloride Carbon Dioxide BUN Creatinine Glucose POC Glucose 115 H Lactic Acid Calcium Ionized Calcium Phosphorus Magnesium Iron TIBC Ferritin Total Bilirubin Direct Bilirubin AST ALT Alkaline Phosphatase Total Creatine Kinase CK-MB (CK-2) Troponin T C-Reactive Protein Total Protein Albumin Triglycerides LDL Cholesterol Direct HDL Cholesterol Free T4 PTH Intact Urine WBC (Auto) Urine Creatinine Salicylates Acetaminophen Crossmatch 03/20/19 03/20/19 03/20/19 09:30 09:30 11:34 WBC RBC Hgb Hct MCV RDW Plt Count Lymph % (Auto) [place] % (Auto) Lymph # [place] # Seg Neutrophils % Seg Neuts % (Manual) Lymphocytes % (Manual) Monocytes % (Manual) Nucleated RBC % Seg Neutrophils # Seg Neutrophils # Man Lymphocytes # (Manual) Monocytes # (Manual) PT INR D-Dimer Heparin Anti-Xa Level POC ABG pH ABG pH POC ABG pCO2 POC ABG pO2 ABG pO2 ABG HCO3 ABG O2 Saturation ABG Base Excess ABG Hemoglobin Oxyhemoglobin Sodium 131 L Potassium Chloride 92.3 L Carbon Dioxide 20 L BUN 68 H Creatinine 6.1 H Glucose 164 H POC Glucose 141 H Lactic Acid Calcium 5.3 L* Ionized Calcium Phosphorus Magnesium Iron TIBC Ferritin Total Bilirubin 9.50 H Direct Bilirubin AST 381 H ALT 116 H Alkaline Phosphatase 255 H Total Creatine Kinase 28573 H CK-MB (CK-2) Troponin T C-Reactive Protein Total Protein 5.1 L Albumin 2.3 L Triglycerides LDL Cholesterol Direct HDL Cholesterol Free T4 PTH Intact Urine WBC (Auto) Urine Creatinine Salicylates Acetaminophen Crossmatch 03/20/19 03/20/19 03/20/19 14:41 14:45 18:50 WBC RBC Hgb Hct MCV RDW Plt Count Lymph % (Auto) [place] % (Auto) Lymph # [place] # Seg Neutrophils % Seg Neuts % (Manual) Lymphocytes % (Manual) Monocytes % (Manual) Nucleated RBC % Seg Neutrophils # Seg Neutrophils # Man Lymphocytes # (Manual) Monocytes # (Manual) PT INR D-Dimer Heparin Anti-Xa Level POC ABG pH ABG pH POC ABG pCO2 POC ABG pO2 ABG pO2 ABG HCO3 ABG O2 Saturation ABG Base Excess ABG Hemoglobin Oxyhemoglobin Sodium Potassium Chloride Carbon Dioxide BUN Creatinine Glucose POC Glucose 117 H Lactic Acid 2.90 H* Calcium Ionized Calcium Phosphorus Magnesium Iron TIBC Ferritin Total Bilirubin Direct Bilirubin AST ALT Alkaline Phosphatase Total Creatine Kinase CK-MB (CK-2) Troponin T C-Reactive Protein 13.30 H Total Protein Albumin Triglycerides LDL Cholesterol Direct HDL Cholesterol Free T4 PTH Intact Urine WBC (Auto) Urine Creatinine Salicylates Acetaminophen Crossmatch 03/20/19 03/21/19 03/21/19 21:55 04:26 04:26 WBC 37.8 H RBC Hgb Hct MCV RDW 15.4 H Plt Count 36 L Lymph % (Auto) [place] % (Auto) Lymph # [place] # Seg Neutrophils % Seg Neuts % (Manual) 93.0 H Lymphocytes % (Manual) 3.0 L Monocytes % (Manual) Nucleated RBC % 1.0 H Seg Neutrophils # 34.6 H Seg Neutrophils # Man 35.2 H Lymphocytes # (Manual) 1.1 L Monocytes # (Manual) PT INR D-Dimer Heparin Anti-Xa Level POC ABG pH ABG pH POC ABG pCO2 POC ABG pO2 ABG pO2 ABG HCO3 ABG O2 Saturation ABG Base Excess ABG Hemoglobin Oxyhemoglobin Sodium 131 L Potassium Chloride 90.7 L Carbon Dioxide 21 L BUN 69 H Creatinine 5.7 H Glucose 170 H POC Glucose 128 H Lactic Acid Calcium 6.1 L D Ionized Calcium Phosphorus Magnesium Iron TIBC Ferritin Total Bilirubin 9.50 H Direct Bilirubin AST 308 H ALT 124 H Alkaline Phosphatase 327 H Total Creatine Kinase 32659 H CK-MB (CK-2) Troponin T C-Reactive Protein Total Protein 5.7 L Albumin 2.6 L Triglycerides LDL Cholesterol Direct HDL Cholesterol Free T4 PTH Intact Urine WBC (Auto) Urine Creatinine Salicylates Acetaminophen Crossmatch 03/21/19 03/21/19 03/21/19 05:17 05:39 08:29 WBC RBC Hgb Hct MCV RDW Plt Count Lymph % (Auto) [place] % (Auto) Lymph # [place] # Seg Neutrophils % Seg Neuts % (Manual) Lymphocytes % (Manual) Monocytes % (Manual) Nucleated RBC % Seg Neutrophils # Seg Neutrophils # Man Lymphocytes # (Manual) Monocytes # (Manual) PT INR D-Dimer Heparin Anti-Xa Level POC ABG pH ABG pH POC ABG pCO2 POC ABG pO2 209 H ABG pO2 ABG HCO3 ABG O2 Saturation ABG Base Excess ABG Hemoglobin Oxyhemoglobin Sodium Potassium Chloride Carbon Dioxide BUN Creatinine Glucose POC Glucose 145 H Lactic Acid Calcium Ionized Calcium Phosphorus Magnesium Iron TIBC Ferritin Total Bilirubin Direct Bilirubin AST ALT Alkaline Phosphatase Total Creatine Kinase 90667 H CK-MB (CK-2) Troponin T C-Reactive Protein Total Protein Albumin Triglycerides LDL Cholesterol Direct HDL Cholesterol Free T4 PTH Intact Urine WBC (Auto) Urine Creatinine Salicylates Acetaminophen Crossmatch 03/21/19 03/21/19 03/21/19 08:29 11:43 12:00 WBC RBC Hgb Hct MCV RDW Plt Count Lymph % (Auto) [place] % (Auto) Lymph # [place] # Seg Neutrophils % Seg Neuts % (Manual) Lymphocytes % (Manual) Monocytes % (Manual) Nucleated RBC % Seg Neutrophils # Seg Neutrophils # Man Lymphocytes # (Manual) Monocytes # (Manual) PT INR D-Dimer Heparin Anti-Xa Level POC ABG pH ABG pH POC ABG pCO2 POC ABG pO2 ABG pO2 ABG HCO3 ABG O2 Saturation ABG Base Excess ABG Hemoglobin Oxyhemoglobin Sodium Potassium Chloride Carbon Dioxide BUN Creatinine Glucose POC Glucose 123 H Lactic Acid 2.60 H* 2.20 H* Calcium Ionized Calcium Phosphorus Magnesium Iron TIBC Ferritin Total Bilirubin Direct Bilirubin AST ALT Alkaline Phosphatase Total Creatine Kinase CK-MB (CK-2) Troponin T C-Reactive Protein Total Protein Albumin Triglycerides LDL Cholesterol Direct HDL Cholesterol Free T4 PTH Intact Urine WBC (Auto) Urine Creatinine Salicylates Acetaminophen Crossmatch 03/21/19 03/21/19 03/21/19 14:11 18:28 19:32 WBC RBC Hgb Hct MCV RDW Plt Count Lymph % (Auto) [place] % (Auto) Lymph # [place] # Seg Neutrophils % Seg Neuts % (Manual) Lymphocytes % (Manual) Monocytes % (Manual) Nucleated RBC % Seg Neutrophils # Seg Neutrophils # Man Lymphocytes # (Manual) Monocytes # (Manual) PT INR D-Dimer Heparin Anti-Xa Level POC ABG pH 7.293 L ABG pH POC ABG pCO2 POC ABG pO2 ABG pO2 ABG HCO3 ABG O2 Saturation ABG Base Excess ABG Hemoglobin Oxyhemoglobin Sodium Potassium Chloride Carbon Dioxide BUN Creatinine Glucose POC Glucose 153 H Lactic Acid 2.10 H* Calcium Ionized Calcium Phosphorus Magnesium Iron TIBC Ferritin Total Bilirubin Direct Bilirubin AST ALT Alkaline Phosphatase Total Creatine Kinase CK-MB (CK-2) Troponin T C-Reactive Protein Total Protein Albumin Triglycerides LDL Cholesterol Direct HDL Cholesterol Free T4 PTH Intact Urine WBC (Auto) Urine Creatinine Salicylates Acetaminophen Crossmatch 03/21/19 03/22/1919 23:38 05:08 05:51 WBC RBC Hgb Hct MCV RDW Plt Count Lymph % (Auto) [place] % (Auto) Lymph # [place] # Seg Neutrophils % Seg Neuts % (Manual) Lymphocytes % (Manual) Monocytes % (Manual) Nucleated RBC % Seg Neutrophils # Seg Neutrophils # Man Lymphocytes # (Manual) Monocytes # (Manual) PT INR D-Dimer Heparin Anti-Xa Level POC ABG pH 7.283 L ABG pH POC ABG pCO2 POC ABG pO2 53 L ABG pO2 ABG HCO3 ABG O2 Saturation ABG Base Excess ABG Hemoglobin Oxyhemoglobin Sodium Potassium Chloride Carbon Dioxide BUN Creatinine Glucose POC Glucose 149 H 131 H Lactic Acid Calcium Ionized Calcium Phosphorus Magnesium Iron TIBC Ferritin Total Bilirubin Direct Bilirubin AST ALT Alkaline Phosphatase Total Creatine Kinase CK-MB (CK-2) Troponin T C-Reactive Protein Total Protein Albumin Triglycerides LDL Cholesterol Direct HDL Cholesterol Free T4 PTH Intact Urine WBC (Auto) Urine Creatinine Salicylates Acetaminophen Crossmatch 03/22/19 03/22/19 03/22/19 08:00 08:00 18:19 WBC 36.7 H RBC Hgb 11.0 L Hct 33.5 L MCV RDW 15.5 H Plt Count 43 L Lymph % (Auto) [place] % (Auto) Lymph # [place] # Seg Neutrophils % Seg Neuts % (Manual) 87.0 H Lymphocytes % (Manual) 7.0 L Monocytes % (Manual) Nucleated RBC % Seg Neutrophils # Seg Neutrophils # Man 31.9 H Lymphocytes # (Manual) Monocytes # (Manual) PT INR D-Dimer Heparin Anti-Xa Level POC ABG pH ABG pH POC ABG pCO2 46.4 H POC ABG pO2 108 H ABG pO2 ABG HCO3 ABG O2 Saturation ABG Base Excess ABG Hemoglobin Oxyhemoglobin Sodium 132 L Potassium 5.6 H Chloride 89.6 L Carbon Dioxide 20 L BUN 101 H Creatinine 7.4 H Glucose 124 H POC Glucose Lactic Acid Calcium 5.2 L* Ionized Calcium Phosphorus Magnesium Iron TIBC Ferritin Total Bilirubin 2.80 H Direct Bilirubin AST 119 H ALT 86 H Alkaline Phosphatase 245 H Total Creatine Kinase CK-MB (CK-2) Troponin T C-Reactive Protein Total Protein 5.6 L Albumin 2.5 L Triglycerides LDL Cholesterol Direct HDL Cholesterol Free T4 PTH Intact Urine WBC (Auto) Urine Creatinine Salicylates Acetaminophen Crossmatch 03/22/19 03/23/1903/23/19 20:37 04:49 05:28 WBC 35.9 H RBC Hgb 10.8 L Hct 33.2 L MCV RDW 15.5 H Plt Count 49 L Lymph % (Auto) [place] % (Auto) Lymph # [place] # Seg Neutrophils % Seg Neuts % (Manual) 81.0 H Lymphocytes % (Manual) 3.5 L Monocytes % (Manual) Nucleated RBC % Seg Neutrophils # Seg Neutrophils # Man 29.1 H Lymphocytes # (Manual) Monocytes # (Manual) 1.4 H PT INR D-Dimer Heparin Anti-Xa Level POC ABG pH 7.296 L ABG pH POC ABG pCO2 46.2 H POC ABG pO2 ABG pO2 ABG HCO3 ABG O2 Saturation ABG Base Excess ABG Hemoglobin Oxyhemoglobin Sodium 129 L Potassium 5.2 H Chloride 91.1 L Carbon Dioxide BUN 91 H Creatinine 6.6 H Glucose 190 H POC Glucose Lactic Acid Calcium 5.3 L* Ionized Calcium Phosphorus Magnesium Iron TIBC Ferritin Total Bilirubin 1.80 H Direct Bilirubin AST 80 H ALT 62 H Alkaline Phosphatase 209 H Total Creatine Kinase 9758 H CK-MB (CK-2) Troponin T C-Reactive Protein Total Protein 5.2 L Albumin 2.2 L Triglycerides LDL Cholesterol Direct HDL Cholesterol Free T4 PTH Intact Urine WBC (Auto) Urine Creatinine Salicylates Acetaminophen Crossmatch 03/23/19 03/23/19 03/23/19 05:28 05:31 11:33 WBC 29.7 H RBC 3.59 L Hgb 10.1 L Hct 31.1 L MCV RDW 15.4 H Plt Count 47 L Lymph % (Auto) [place] % (Auto) Lymph # [place] # Seg Neutrophils % Seg Neuts % (Manual) 89.0 H Lymphocytes % (Manual) 6.0 L Monocytes % (Manual) Nucleated RBC % 1.0 H Seg Neutrophils # Seg Neutrophils # Man 26.4 H Lymphocytes # (Manual) Monocytes # (Manual) PT INR D-Dimer Heparin Anti-Xa Level POC ABG pH ABG pH POC ABG pCO2 POC ABG pO2 ABG pO2 ABG HCO3 ABG O2 Saturation ABG Base Excess ABG Hemoglobin Oxyhemoglobin Sodium Potassium Chloride Carbon Dioxide BUN Creatinine Glucose POC Glucose 122 H 113 H Lactic Acid Calcium Ionized Calcium Phosphorus Magnesium Iron TIBC Ferritin Total Bilirubin Direct Bilirubin AST ALT Alkaline Phosphatase Total Creatine Kinase CK-MB (CK-2) Troponin T C-Reactive Protein Total Protein Albumin Triglycerides LDL Cholesterol Direct HDL Cholesterol Free T4 PTH Intact Urine WBC (Auto) Urine Creatinine Salicylates Acetaminophen Crossmatch 03/23/19 03/24/19 03/24/19 17:47 00:00 04:50 WBC 35.0 H RBC Hgb 10.4 L Hct 32.4 L MCV RDW Plt Count 60 L Lymph % (Auto) [place] % (Auto) Lymph # [place] # Seg Neutrophils % Seg Neuts % (Manual) 93.0 H Lymphocytes % (Manual) 5.0 L Monocytes % (Manual) Nucleated RBC % 7.0 H Seg Neutrophils # Seg Neutrophils # Man 32.6 H Lymphocytes # (Manual) Monocytes # (Manual) PT INR D-Dimer Heparin Anti-Xa Level POC ABG pH ABG pH POC ABG pCO2 POC ABG pO2 ABG pO2 ABG HCO3 ABG O2 Saturation ABG Base Excess ABG Hemoglobin Oxyhemoglobin Sodium Potassium Chloride Carbon Dioxide BUN Creatinine Glucose POC Glucose 111 H 108 H Lactic Acid Calcium Ionized Calcium Phosphorus Magnesium Iron TIBC Ferritin Total Bilirubin Direct Bilirubin AST ALT Alkaline Phosphatase Total Creatine Kinase CK-MB (CK-2) Troponin T C-Reactive Protein Total Protein Albumin Triglycerides LDL Cholesterol Direct HDL Cholesterol Free T4 PTH Intact Urine WBC (Auto) Urine Creatinine Salicylates Acetaminophen Crossmatch 03/24/19 03/24/19 03/24/19 04:50 05:06 12:55 WBC RBC Hgb Hct MCV RDW Plt Count Lymph % (Auto) [place] % (Auto) Lymph # [place] # Seg Neutrophils % Seg Neuts % (Manual) Lymphocytes % (Manual) Monocytes % (Manual) Nucleated RBC % Seg Neutrophils # Seg Neutrophils # Man Lymphocytes # (Manual) Monocytes # (Manual) PT INR D-Dimer Heparin Anti-Xa Level POC ABG pH ABG pH POC ABG pCO2 POC ABG pO2 ABG pO2 ABG HCO3 ABG O2 Saturation ABG Base Excess ABG Hemoglobin Oxyhemoglobin Sodium 134 L Potassium 5.1 H Chloride 95.3 L Carbon Dioxide 21 L BUN 85 H Creatinine 6.4 H Glucose 109 H POC Glucose 112 H 110 H Lactic Acid Calcium 5.8 L* Ionized Calcium Phosphorus Magnesium Iron TIBC Ferritin Total Bilirubin Direct Bilirubin AST ALT Alkaline Phosphatase Total Creatine Kinase 5747 H CK-MB (CK-2) Troponin T C-Reactive Protein Total Protein Albumin Triglycerides LDL Cholesterol Direct HDL Cholesterol Free T4 PTH Intact Urine WBC (Auto) Urine Creatinine Salicylates Acetaminophen Crossmatch 03/24/19 03/25/19 03/25/19 23:29 05:00 05:00 WBC RBC Hgb Hct MCV RDW Plt Count Lymph % (Auto) [place] % (Auto) Lymph # [place] # Seg Neutrophils % Seg Neuts % (Manual) Lymphocytes % (Manual) Monocytes % (Manual) Nucleated RBC % Seg Neutrophils # Seg Neutrophils # Man Lymphocytes # (Manual) Monocytes # (Manual) PT INR D-Dimer Heparin Anti-Xa Level POC ABG pH ABG pH POC ABG pCO2 POC ABG pO2 ABG pO2 ABG HCO3 ABG O2 Saturation ABG Base Excess ABG Hemoglobin Oxyhemoglobin Sodium 133 L Potassium Chloride 94.0 L Carbon Dioxide 21 L BUN 81 H Creatinine 6.4 H Glucose POC Glucose 109 H Lactic Acid Calcium 5.5 L* Ionized Calcium Phosphorus Magnesium Iron TIBC Ferritin Total Bilirubin Direct Bilirubin AST 80 H ALT Alkaline Phosphatase 202 H Total Creatine Kinase 3589 H CK-MB (CK-2) Troponin T C-Reactive Protein Total Protein 5.3 L Albumin 2.4 L Triglycerides LDL Cholesterol Direct HDL Cholesterol Free T4 PTH Intact 329.9 H Urine WBC (Auto) Urine Creatinine Salicylates Acetaminophen Crossmatch 03/25/19 03/25/19 03/26/19 05:00 06:30 04:30 WBC 23.3 H RBC 3.61 L Hgb 10.2 L Hct 31.2 L MCV RDW Plt Count 57 L Lymph % (Auto) [place] % (Auto) Lymph # [place] # Seg Neutrophils % Seg Neuts % (Manual) 92.0 H Lymphocytes % (Manual) 6.0 L Monocytes % (Manual) Nucleated RBC % Seg Neutrophils # Seg Neutrophils # Man 21.4 H Lymphocytes # (Manual) Monocytes # (Manual) PT INR D-Dimer Heparin Anti-Xa Level POC ABG pH ABG pH 7.326 L POC ABG pCO2 POC ABG pO2 ABG pO2 109.5 H 137.4 H ABG HCO3 18.8 L 18.6 L ABG O2 Saturation ABG Base Excess -4.4 L -6.8 L ABG Hemoglobin 10.1 L 9.9 L Oxyhemoglobin Sodium Potassium Chloride Carbon Dioxide BUN Creatinine Glucose POC Glucose Lactic Acid Calcium Ionized Calcium Phosphorus Magnesium Iron TIBC Ferritin Total Bilirubin Direct Bilirubin AST ALT Alkaline Phosphatase Total Creatine Kinase CK-MB (CK-2) Troponin T C-Reactive Protein Total Protein Albumin Triglycerides LDL Cholesterol Direct HDL Cholesterol Free T4 PTH Intact Urine WBC (Auto) Urine Creatinine Salicylates Acetaminophen Crossmatch 03/26/19 03/26/19 03/26/19 23:22 Unknown Unknown WBC 19.5 H RBC 3.44 L Hgb 9.8 L Hct 29.9 L MCV RDW Plt Count 85 L Lymph % (Auto) [place] % (Auto) Lymph # [place] # Seg Neutrophils % Seg Neuts % (Manual) 95.0 H Lymphocytes % (Manual) 3.0 L Monocytes % (Manual) Nucleated RBC % Seg Neutrophils # Seg Neutrophils # Man 18.5 H Lymphocytes # (Manual) 0.6 L Monocytes # (Manual) PT INR D-Dimer Heparin Anti-Xa Level POC ABG pH ABG pH POC ABG pCO2 POC ABG pO2 ABG pO2 ABG HCO3 ABG O2 Saturation ABG Base Excess ABG Hemoglobin Oxyhemoglobin Sodium 135 L Potassium 5.2 H D Chloride 92.2 L Carbon Dioxide 18 L BUN 109 H Creatinine 8.5 H Glucose 117 H POC Glucose 69 L Lactic Acid Calcium 4.5 L* D Ionized Calcium Phosphorus Magnesium Iron TIBC Ferritin Total Bilirubin Direct Bilirubin AST ALT Alkaline Phosphatase Total Creatine Kinase 4527 H CK-MB (CK-2) Troponin T C-Reactive Protein Total Protein Albumin Triglycerides LDL Cholesterol Direct HDL Cholesterol Free T4 PTH Intact Urine WBC (Auto) Urine Creatinine Salicylates Acetaminophen Crossmatch 03/27/19 03/27/19 03/27/19 04:30 04:30 09:00 WBC 19.2 H RBC 3.42 L Hgb 9.9 L Hct 30.0 L MCV RDW Plt Count 84 L Lymph % (Auto) [place] % (Auto) Lymph # [place] # Seg Neutrophils % Seg Neuts % (Manual) Lymphocytes % (Manual) Monocytes % (Manual) Nucleated RBC % Seg Neutrophils # Seg Neutrophils # Man Lymphocytes # (Manual) Monocytes # (Manual) PT INR D-Dimer Heparin Anti-Xa Level POC ABG pH ABG pH POC ABG pCO2 POC ABG pO2 ABG pO2 ABG HCO3 ABG O2 Saturation ABG Base Excess ABG Hemoglobin Oxyhemoglobin Sodium 135 L Potassium Chloride 93.5 L Carbon Dioxide BUN 84 H Creatinine 7.1 H Glucose POC Glucose Lactic Acid Calcium 5.0 L* Ionized Calcium Phosphorus Magnesium Iron TIBC Ferritin Total Bilirubin Direct Bilirubin AST 78 H ALT Alkaline Phosphatase 135 H Total Creatine Kinase 4677 H CK-MB (CK-2) Troponin T C-Reactive Protein Total Protein 4.8 L Albumin 2.3 L Triglycerides 409 H LDL Cholesterol Direct HDL Cholesterol Free T4 PTH Intact Urine WBC (Auto) Urine Creatinine Salicylates Acetaminophen Crossmatch 03/27/19 03/27/19 03/27/19 12:37 14:15 14:15 WBC RBC Hgb 9.7 L Hct 29.5 L MCV RDW Plt Count 87 L Lymph % (Auto) [place] % (Auto) Lymph # [place] # Seg Neutrophils % Seg Neuts % (Manual) Lymphocytes % (Manual) Monocytes % (Manual) Nucleated RBC % Seg Neutrophils # Seg Neutrophils # Man Lymphocytes # (Manual) Monocytes # (Manual) PT 15.9 H INR 1.30 H D-Dimer Heparin Anti-Xa Level POC ABG pH ABG pH POC ABG pCO2 POC ABG pO2 ABG pO2 ABG HCO3 ABG O2 Saturation ABG Base Excess ABG Hemoglobin Oxyhemoglobin Sodium Potassium Chloride Carbon Dioxide BUN Creatinine Glucose POC Glucose 129 H Lactic Acid Calcium Ionized Calcium Phosphorus Magnesium Iron TIBC Ferritin Total Bilirubin Direct Bilirubin AST ALT Alkaline Phosphatase Total Creatine Kinase CK-MB (CK-2) Troponin T C-Reactive Protein Total Protein Albumin Triglycerides LDL Cholesterol Direct HDL Cholesterol Free T4 PTH Intact Urine WBC (Auto) Urine Creatinine Salicylates Acetaminophen Crossmatch 03/27/19 03/27/19 03/27/19 18:00 19:22 19:23 WBC RBC Hgb Hct MCV RDW Plt Count Lymph % (Auto) [place] % (Auto) Lymph # [place] # Seg Neutrophils % Seg Neuts % (Manual) Lymphocytes % (Manual) Monocytes % (Manual) Nucleated RBC % Seg Neutrophils # Seg Neutrophils # Man Lymphocytes # (Manual) Monocytes # (Manual) PT INR D-Dimer Heparin Anti-Xa Level < 0.10 L POC ABG pH ABG pH POC ABG pCO2 POC ABG pO2 ABG pO2 ABG HCO3 ABG O2 Saturation ABG Base Excess ABG Hemoglobin Oxyhemoglobin Sodium Potassium Chloride Carbon Dioxide BUN Creatinine Glucose POC Glucose 121 H Lactic Acid Calcium Ionized Calcium Phosphorus Magnesium Iron TIBC Ferritin Total Bilirubin Direct Bilirubin AST ALT Alkaline Phosphatase Total Creatine Kinase 4517 H CK-MB (CK-2) Troponin T C-Reactive Protein Total Protein Albumin Triglycerides LDL Cholesterol Direct HDL Cholesterol Free T4 PTH Intact Urine WBC (Auto) Urine Creatinine Salicylates Acetaminophen Crossmatch 03/27/19 03/27/19 03/28/19 22:10 23:52 03:49 WBC RBC Hgb Hct MCV RDW Plt Count Lymph % (Auto) [place] % (Auto) Lymph # [place] # Seg Neutrophils % Seg Neuts % (Manual) Lymphocytes % (Manual) Monocytes % (Manual) Nucleated RBC % Seg Neutrophils # Seg Neutrophils # Man Lymphocytes # (Manual) Monocytes # (Manual) PT INR D-Dimer Heparin Anti-Xa Level POC ABG pH 7.338 L ABG pH POC ABG pCO2 33.1 L POC ABG pO2 ABG pO2 ABG HCO3 ABG O2 Saturation ABG Base Excess ABG Hemoglobin Oxyhemoglobin Sodium Potassium Chloride Carbon Dioxide BUN Creatinine Glucose POC Glucose 113 H 117 H Lactic Acid Calcium Ionized Calcium Phosphorus Magnesium Iron TIBC Ferritin Total Bilirubin Direct Bilirubin AST ALT Alkaline Phosphatase Total Creatine Kinase CK-MB (CK-2) Troponin T C-Reactive Protein Total Protein Albumin Triglycerides LDL Cholesterol Direct HDL Cholesterol Free T4 PTH Intact Urine WBC (Auto) Urine Creatinine Salicylates Acetaminophen Crossmatch 03/28/19 03/28/19 03/28/19 05:13 05:13 06:18 WBC RBC Hgb Hct MCV RDW Plt Count Lymph % (Auto) [place] % (Auto) Lymph # [place] # Seg Neutrophils % Seg Neuts % (Manual) Lymphocytes % (Manual) Monocytes % (Manual) Nucleated RBC % Seg Neutrophils # Seg Neutrophils # Man Lymphocytes # (Manual) Monocytes # (Manual) PT INR D-Dimer Heparin Anti-Xa Level 0.23 L POC ABG pH ABG pH POC ABG pCO2 POC ABG pO2 ABG pO2 ABG HCO3 ABG O2 Saturation ABG Base Excess ABG Hemoglobin Oxyhemoglobin Sodium 135 L Potassium 5.5 H D Chloride 95.1 L Carbon Dioxide 16 L D BUN 129 H Creatinine 9.3 H Glucose 158 H POC Glucose 202 H Lactic Acid Calcium 4.0 L* D Ionized Calcium Phosphorus 12.40 H Magnesium Iron TIBC Ferritin Total Bilirubin Direct Bilirubin AST ALT Alkaline Phosphatase Total Creatine Kinase 4266 H CK-MB (CK-2) Troponin T C-Reactive Protein Total Protein Albumin Triglycerides LDL Cholesterol Direct HDL Cholesterol Free T4 PTH Intact Urine WBC (Auto) Urine Creatinine Salicylates Acetaminophen Crossmatch 03/28/19 03/28/19 03/28/19 08:25 10:00 12:00 WBC RBC Hgb 4.9 L* D Hct 15.4 L* D MCV RDW Plt Count Lymph % (Auto) [place] % (Auto) Lymph # [place] # Seg Neutrophils % Seg Neuts % (Manual) Lymphocytes % (Manual) Monocytes % (Manual) Nucleated RBC % Seg Neutrophils # Seg Neutrophils # Man Lymphocytes # (Manual) Monocytes # (Manual) PT 17.9 H INR 1.52 H D-Dimer 4845.98 H Heparin Anti-Xa Level POC ABG pH ABG pH POC ABG pCO2 POC ABG pO2 ABG pO2 ABG HCO3 ABG O2 Saturation ABG Base Excess ABG Hemoglobin Oxyhemoglobin Sodium Potassium Chloride Carbon Dioxide BUN Creatinine Glucose POC Glucose Lactic Acid Calcium Ionized Calcium Phosphorus Magnesium Iron TIBC Ferritin Total Bilirubin Direct Bilirubin AST ALT Alkaline Phosphatase Total Creatine Kinase CK-MB (CK-2) Troponin T C-Reactive Protein Total Protein Albumin Triglycerides LDL Cholesterol Direct HDL Cholesterol Free T4 PTH Intact Urine WBC (Auto) Urine Creatinine Salicylates Acetaminophen Crossmatch See Detail 03/28/19 03/28/19 03/28/19 12:28 14:10 17:43 WBC RBC Hgb 5.9 L* Hct 18.3 L* MCV RDW Plt Count Lymph % (Auto) [place] % (Auto) Lymph # [place] # Seg Neutrophils % Seg Neuts % (Manual) Lymphocytes % (Manual) Monocytes % (Manual) Nucleated RBC % Seg Neutrophils # Seg Neutrophils # Man Lymphocytes # (Manual) Monocytes # (Manual) PT INR D-Dimer Heparin Anti-Xa Level POC ABG pH ABG pH POC ABG pCO2 POC ABG pO2 ABG pO2 ABG HCO3 ABG O2 Saturation ABG Base Excess ABG Hemoglobin Oxyhemoglobin Sodium Potassium Chloride Carbon Dioxide BUN Creatinine Glucose POC Glucose 153 H 159 H Lactic Acid Calcium Ionized Calcium Phosphorus Magnesium Iron TIBC Ferritin Total Bilirubin Direct Bilirubin AST ALT Alkaline Phosphatase Total Creatine Kinase CK-MB (CK-2) Troponin T C-Reactive Protein Total Protein Albumin Triglycerides LDL Cholesterol Direct HDL Cholesterol Free T4 PTH Intact Urine WBC (Auto) Urine Creatinine Salicylates Acetaminophen Crossmatch 03/28/19 03/28/19 03/28/19 18:10 Unknown 23:59 WBC 24.8 H RBC 3.42 L Hgb 10.2 L D Hct 31.1 L D MCV RDW 15.4 H Plt Count 54 L Lymph % (Auto) [place] % (Auto) Lymph # [place] # Seg Neutrophils % Seg Neuts % (Manual) 91.0 H Lymphocytes % (Manual) 8.0 L Monocytes % (Manual) Nucleated RBC % Seg Neutrophils # Seg Neutrophils # Man 22.6 H Lymphocytes # (Manual) Monocytes # (Manual) PT INR D-Dimer Heparin Anti-Xa Level POC ABG pH ABG pH POC ABG pCO2 POC ABG pO2 ABG pO2 ABG HCO3 ABG O2 Saturation ABG Base Excess ABG Hemoglobin Oxyhemoglobin Sodium Potassium 5.7 H Chloride Carbon Dioxide BUN Creatinine Glucose POC Glucose 107 H Lactic Acid Calcium Ionized Calcium Phosphorus Magnesium Iron TIBC Ferritin Total Bilirubin Direct Bilirubin AST ALT Alkaline Phosphatase Total Creatine Kinase CK-MB (CK-2) Troponin T C-Reactive Protein Total Protein Albumin Triglycerides LDL Cholesterol Direct HDL Cholesterol Free T4 PTH Intact Urine WBC (Auto) Urine Creatinine Salicylates Acetaminophen Crossmatch 03/29/19 03/29/19 03/29/19 04:29 05:46 06:22 WBC RBC Hgb 8.6 L Hct 25.7 L MCV RDW Plt Count 93 L Lymph % (Auto) [place] % (Auto) Lymph # [place] # Seg Neutrophils % Seg Neuts % (Manual) Lymphocytes % (Manual) Monocytes % (Manual) Nucleated RBC % Seg Neutrophils # Seg Neutrophils # Man Lymphocytes # (Manual) Monocytes # (Manual) PT INR D-Dimer Heparin Anti-Xa Level POC ABG pH ABG pH POC ABG pCO2 32.2 L POC ABG pO2 ABG pO2 ABG HCO3 ABG O2 Saturation ABG Base Excess ABG Hemoglobin Oxyhemoglobin Sodium Potassium Chloride Carbon Dioxide BUN Creatinine Glucose POC Glucose 113 H Lactic Acid Calcium Ionized Calcium Phosphorus Magnesium Iron TIBC Ferritin Total Bilirubin Direct Bilirubin AST ALT Alkaline Phosphatase Total Creatine Kinase CK-MB (CK-2) Troponin T C-Reactive Protein Total Protein Albumin Triglycerides LDL Cholesterol Direct HDL Cholesterol Free T4 PTH Intact Urine WBC (Auto) Urine Creatinine Salicylates Acetaminophen Crossmatch 03/29/19 03/29/19 03/29/19 06:22 06:22 06:22 WBC 23.2 H RBC 2.91 L Hgb 8.6 L Hct 25.8 L MCV RDW Plt Count 91 L Lymph % (Auto) [place] % (Auto) Lymph # [place] # Seg Neutrophils % Seg Neuts % (Manual) Lymphocytes % (Manual) Monocytes % (Manual) Nucleated RBC % Seg Neutrophils # Seg Neutrophils # Man Lymphocytes # (Manual) Monocytes # (Manual) PT INR D-Dimer Heparin Anti-Xa Level POC ABG pH ABG pH POC ABG pCO2 POC ABG pO2 ABG pO2 ABG HCO3 ABG O2 Saturation ABG Base Excess ABG Hemoglobin Oxyhemoglobin Sodium 133 L Potassium Chloride 93.8 L Carbon Dioxide 18 L BUN 109 H Creatinine 7.4 H Glucose 124 H POC Glucose Lactic Acid Calcium 4.6 L* Ionized Calcium Phosphorus Magnesium Iron TIBC Ferritin Total Bilirubin Direct Bilirubin AST ALT Alkaline Phosphatase Total Creatine Kinase 3401 H CK-MB (CK-2) Troponin T C-Reactive Protein Total Protein Albumin Triglycerides 309 H LDL Cholesterol Direct HDL Cholesterol Free T4 PTH Intact Urine WBC (Auto) Urine Creatinine Salicylates Acetaminophen Crossmatch 03/29/19 03/29/19 03/29/19 11:48 11:48 18:24 WBC RBC Hgb 7.8 L Hct 23.2 L MCV RDW Plt Count Lymph % (Auto) [place] % (Auto) Lymph # [place] # Seg Neutrophils % Seg Neuts % (Manual) Lymphocytes % (Manual) Monocytes % (Manual) Nucleated RBC % Seg Neutrophils # Seg Neutrophils # Man Lymphocytes # (Manual) Monocytes # (Manual) PT 15.3 H INR 1.24 H D-Dimer Heparin Anti-Xa Level POC ABG pH ABG pH POC ABG pCO2 POC ABG pO2 ABG pO2 ABG HCO3 ABG O2 Saturation ABG Base Excess ABG Hemoglobin Oxyhemoglobin Sodium Potassium Chloride Carbon Dioxide BUN Creatinine Glucose POC Glucose 122 H Lactic Acid Calcium Ionized Calcium Phosphorus Magnesium Iron TIBC Ferritin Total Bilirubin Direct Bilirubin AST ALT Alkaline Phosphatase Total Creatine Kinase CK-MB (CK-2) Troponin T C-Reactive Protein Total Protein Albumin Triglycerides LDL Cholesterol Direct HDL Cholesterol Free T4 PTH Intact Urine WBC (Auto) Urine Creatinine Salicylates Acetaminophen Crossmatch 03/30/19 03/30/19 03/30/19 00:40 04:31 05:04 WBC RBC Hgb 7.6 L Hct 23.0 L MCV RDW Plt Count Lymph % (Auto) [place] % (Auto) Lymph # [place] # Seg Neutrophils % Seg Neuts % (Manual) Lymphocytes % (Manual) Monocytes % (Manual) Nucleated RBC % Seg Neutrophils # Seg Neutrophils # Man Lymphocytes # (Manual) Monocytes # (Manual) PT INR D-Dimer Heparin Anti-Xa Level POC ABG pH 7.346 L ABG pH POC ABG pCO2 POC ABG pO2 62 L ABG pO2 ABG HCO3 ABG O2 Saturation ABG Base Excess ABG Hemoglobin Oxyhemoglobin Sodium Potassium Chloride Carbon Dioxide BUN 79 H Creatinine 6.4 H Glucose POC Glucose Lactic Acid Calcium 6.1 L D Ionized Calcium Phosphorus Magnesium Iron TIBC Ferritin Total Bilirubin Direct Bilirubin AST ALT Alkaline Phosphatase Total Creatine Kinase CK-MB (CK-2) Troponin T C-Reactive Protein Total Protein Albumin Triglycerides LDL Cholesterol Direct HDL Cholesterol Free T4 PTH Intact Urine WBC (Auto) Urine Creatinine Salicylates Acetaminophen Crossmatch 03/30/19 03/30/19 03/30/19 08:45 12:09 22:43 WBC 14.3 H RBC 2.33 L Hgb 7.0 L 7.4 L Hct 21.0 L 22.3 L MCV RDW 15.6 H Plt Count 135 L Lymph % (Auto) [place] % (Auto) Lymph # [place] # Seg Neutrophils % Seg Neuts % (Manual) Lymphocytes % (Manual) Monocytes % (Manual) Nucleated RBC % Seg Neutrophils # Seg Neutrophils # Man Lymphocytes # (Manual) Monocytes # (Manual) PT INR D-Dimer Heparin Anti-Xa Level POC ABG pH ABG pH POC ABG pCO2 POC ABG pO2 ABG pO2 ABG HCO3 ABG O2 Saturation ABG Base Excess ABG Hemoglobin Oxyhemoglobin Sodium Potassium Chloride Carbon Dioxide BUN Creatinine Glucose POC Glucose Lactic Acid Calcium Ionized Calcium 3.7 L Phosphorus Magnesium Iron TIBC Ferritin Total Bilirubin Direct Bilirubin AST ALT Alkaline Phosphatase Total Creatine Kinase CK-MB (CK-2) Troponin T C-Reactive Protein Total Protein Albumin Triglycerides LDL Cholesterol Direct HDL Cholesterol Free T4 PTH Intact Urine WBC (Auto) Urine Creatinine Salicylates Acetaminophen Crossmatch 03/30/19 03/30/19 03/31/19 23:38 Unknown 04:44 WBC 11.5 H RBC 2.40 L Hgb 7.3 L Hct 21.9 L MCV RDW 15.4 H Plt Count Lymph % (Auto) 10.6 L [place] % (Auto) Lymph # [place] # Seg Neutrophils % 81.7 H Seg Neuts % (Manual) Lymphocytes % (Manual) Monocytes % (Manual) Nucleated RBC % Seg Neutrophils # 9.4 H Seg Neutrophils # Man Lymphocytes # (Manual) Monocytes # (Manual) PT INR D-Dimer Heparin Anti-Xa Level POC ABG pH ABG pH POC ABG pCO2 POC ABG pO2 ABG pO2 ABG HCO3 ABG O2 Saturation ABG Base Excess ABG Hemoglobin Oxyhemoglobin Sodium Potassium Chloride Carbon Dioxide BUN Creatinine Glucose POC Glucose 155 H Lactic Acid Calcium Ionized Calcium Phosphorus Magnesium Iron TIBC Ferritin Total Bilirubin Direct Bilirubin 0.4 H AST 63 H ALT Alkaline Phosphatase Total Creatine Kinase CK-MB (CK-2) Troponin T C-Reactive Protein Total Protein 4.9 L Albumin 2.2 L Triglycerides LDL Cholesterol Direct HDL Cholesterol Free T4 PTH Intact Urine WBC (Auto) Urine Creatinine Salicylates Acetaminophen Crossmatch 03/31/19 03/31/19 03/31/19 04:44 05:44 08:20 WBC RBC Hgb Hct MCV RDW Plt Count Lymph % (Auto) [place] % (Auto) Lymph # [place] # Seg Neutrophils % Seg Neuts % (Manual) Lymphocytes % (Manual) Monocytes % (Manual) Nucleated RBC % Seg Neutrophils # Seg Neutrophils # Man Lymphocytes # (Manual) Monocytes # (Manual) PT INR D-Dimer Heparin Anti-Xa Level POC ABG pH ABG pH POC ABG pCO2 53.5 H POC ABG pO2 62 L ABG pO2 ABG HCO3 ABG O2 Saturation ABG Base Excess ABG Hemoglobin Oxyhemoglobin Sodium 135 L Potassium Chloride 96.7 L Carbon Dioxide 19 L BUN 94 H Creatinine 7.8 H Glucose POC Glucose Lactic Acid Calcium 5.3 L* Ionized Calcium Phosphorus 8.20 H Magnesium Iron TIBC Ferritin Total Bilirubin Direct Bilirubin 0.4 H AST 60 H ALT Alkaline Phosphatase Total Creatine Kinase CK-MB (CK-2) Troponin T C-Reactive Protein Total Protein 4.8 L Albumin 2.1 L Triglycerides LDL Cholesterol Direct HDL Cholesterol Free T4 PTH Intact Urine WBC (Auto) Urine Creatinine Salicylates Acetaminophen Crossmatch 03/31/19 04/01/19 04/01/19 22:14 04:27 04:27 WBC RBC 2.60 L Hgb 8.0 L Hct 24.1 L MCV RDW 15.7 H Plt Count Lymph % (Auto) 7.9 L [place] % (Auto) Lymph # 0.7 L [place] # Seg Neutrophils % 83.6 H Seg Neuts % (Manual) Lymphocytes % (Manual) Monocytes % (Manual) Nucleated RBC % Seg Neutrophils # Seg Neutrophils # Man Lymphocytes # (Manual) Monocytes # (Manual) PT INR D-Dimer Heparin Anti-Xa Level POC ABG pH 7.286 L ABG pH POC ABG pCO2 54.7 H POC ABG pO2 179 H ABG pO2 ABG HCO3 ABG O2 Saturation ABG Base Excess ABG Hemoglobin Oxyhemoglobin Sodium Potassium Chloride Carbon Dioxide BUN 68 H Creatinine 6.6 H Glucose POC Glucose Lactic Acid Calcium 6.5 L D Ionized Calcium Phosphorus 7.30 H Magnesium Iron TIBC Ferritin Total Bilirubin Direct Bilirubin AST ALT Alkaline Phosphatase Total Creatine Kinase 1652 H CK-MB (CK-2) Troponin T C-Reactive Protein Total Protein Albumin Triglycerides LDL Cholesterol Direct HDL Cholesterol Free T4 PTH Intact Urine WBC (Auto) Urine Creatinine Salicylates Acetaminophen Crossmatch 04/01/19 04/01/19 04/01/19 05:14 05:37 18:37 WBC RBC Hgb Hct MCV RDW Plt Count Lymph % (Auto) [place] % (Auto) Lymph # [place] # Seg Neutrophils % Seg Neuts % (Manual) Lymphocytes % (Manual) Monocytes % (Manual) Nucleated RBC % Seg Neutrophils # Seg Neutrophils # Man Lymphocytes # (Manual) Monocytes # (Manual) PT INR D-Dimer Heparin Anti-Xa Level POC ABG pH 7.283 L ABG pH POC ABG pCO2 53.4 H POC ABG pO2 241 H ABG pO2 ABG HCO3 ABG O2 Saturation ABG Base Excess ABG Hemoglobin Oxyhemoglobin Sodium Potassium Chloride Carbon Dioxide BUN Creatinine Glucose POC Glucose 111 H 119 H Lactic Acid Calcium Ionized Calcium Phosphorus Magnesium Iron TIBC Ferritin Total Bilirubin Direct Bilirubin AST ALT Alkaline Phosphatase Total Creatine Kinase CK-MB (CK-2) Troponin T C-Reactive Protein Total Protein Albumin Triglycerides LDL Cholesterol Direct HDL Cholesterol Free T4 PTH Intact Urine WBC (Auto) Urine Creatinine Salicylates Acetaminophen Crossmatch 04/01/19 04/02/19 04/02/19 21:28 04:40 05:03 WBC RBC 2.36 L Hgb 7.2 L Hct 21.9 L MCV RDW 16.0 H Plt Count Lymph % (Auto) 10.8 L [place] % (Auto) Lymph # 0.8 L [place] # Seg Neutrophils % 80.3 H Seg Neuts % (Manual) Lymphocytes % (Manual) Monocytes % (Manual) Nucleated RBC % Seg Neutrophils # Seg Neutrophils # Man Lymphocytes # (Manual) Monocytes # (Manual) PT INR D-Dimer Heparin Anti-Xa Level POC ABG pH 7.299 L 7.300 L ABG pH POC ABG pCO2 48.2 H 45.2 H POC ABG pO2 133 H 107 H ABG pO2 ABG HCO3 ABG O2 Saturation ABG Base Excess ABG Hemoglobin Oxyhemoglobin Sodium Potassium Chloride Carbon Dioxide BUN Creatinine Glucose POC Glucose Lactic Acid Calcium Ionized Calcium Phosphorus Magnesium Iron TIBC Ferritin Total Bilirubin Direct Bilirubin AST ALT Alkaline Phosphatase Total Creatine Kinase CK-MB (CK-2) Troponin T C-Reactive Protein Total Protein Albumin Triglycerides LDL Cholesterol Direct HDL Cholesterol Free T4 PTH Intact Urine WBC (Auto) Urine Creatinine Salicylates Acetaminophen Crossmatch 04/02/19 04/02/19 04/02/19 05:03 05:03 12:15 WBC RBC Hgb 7.4 L Hct 22.6 L MCV RDW Plt Count Lymph % (Auto) [place] % (Auto) Lymph # [place] # Seg Neutrophils % Seg Neuts % (Manual) Lymphocytes % (Manual) Monocytes % (Manual) Nucleated RBC % Seg Neutrophils # Seg Neutrophils # Man Lymphocytes # (Manual) Monocytes # (Manual) PT INR D-Dimer Heparin Anti-Xa Level POC ABG pH ABG pH POC ABG pCO2 POC ABG pO2 ABG pO2 ABG HCO3 ABG O2 Saturation ABG Base Excess ABG Hemoglobin Oxyhemoglobin Sodium 136 L Potassium Chloride 97.8 L Carbon Dioxide 18 L BUN 82 H Creatinine 8.2 H Glucose POC Glucose Lactic Acid Calcium 6.7 L Ionized Calcium Phosphorus 7.50 H Magnesium Iron 26 L TIBC 138 L Ferritin 607.0 H Total Bilirubin Direct Bilirubin AST ALT Alkaline Phosphatase Total Creatine Kinase CK-MB (CK-2) Troponin T C-Reactive Protein Total Protein Albumin Triglycerides LDL Cholesterol Direct HDL Cholesterol Free T4 PTH Intact Urine WBC (Auto) Urine Creatinine Salicylates Acetaminophen Crossmatch 04/02/19 04/02/19 04/03/19 16:34 17:14 04:18 WBC RBC Hgb Hct MCV RDW Plt Count Lymph % (Auto) [place] % (Auto) Lymph # [place] # Seg Neutrophils % Seg Neuts % (Manual) Lymphocytes % (Manual) Monocytes % (Manual) Nucleated RBC % Seg Neutrophils # Seg Neutrophils # Man Lymphocytes # (Manual) Monocytes # (Manual) PT INR D-Dimer Heparin Anti-Xa Level POC ABG pH ABG pH POC ABG pCO2 POC ABG pO2 146 H ABG pO2 ABG HCO3 ABG O2 Saturation ABG Base Excess ABG Hemoglobin Oxyhemoglobin Sodium Potassium Chloride Carbon Dioxide BUN Creatinine Glucose POC Glucose 108 H Lactic Acid Calcium Ionized Calcium Phosphorus Magnesium Iron TIBC Ferritin Total Bilirubin Direct Bilirubin AST ALT Alkaline Phosphatase Total Creatine Kinase CK-MB (CK-2) Troponin T C-Reactive Protein Total Protein Albumin Triglycerides LDL Cholesterol Direct HDL Cholesterol Free T4 PTH Intact Urine WBC (Auto) Urine Creatinine Salicylates Acetaminophen Crossmatch See Detail 04/03/19 04/03/19 04/03/19 04:25 08:30 18:24 WBC RBC 2.40 L Hgb 7.3 L Hct 21.9 L MCV RDW Plt Count Lymph % (Auto) [place] % (Auto) 7.7 H Lymph # 0.9 L [place] # Seg Neutrophils % 74.6 H Seg Neuts % (Manual) Lymphocytes % (Manual) Monocytes % (Manual) Nucleated RBC % Seg Neutrophils # Seg Neutrophils # Man Lymphocytes # (Manual) Monocytes # (Manual) PT INR D-Dimer Heparin Anti-Xa Level POC ABG pH ABG pH POC ABG pCO2 POC ABG pO2 ABG pO2 ABG HCO3 ABG O2 Saturation ABG Base Excess ABG Hemoglobin Oxyhemoglobin Sodium 136 L Potassium Chloride 97.0 L Carbon Dioxide BUN 58 H Creatinine 7.3 H Glucose POC Glucose 106 H Lactic Acid Calcium 7.5 L Ionized Calcium Phosphorus 5.80 H D Magnesium Iron TIBC Ferritin Total Bilirubin Direct Bilirubin AST ALT Alkaline Phosphatase Total Creatine Kinase CK-MB (CK-2) Troponin T C-Reactive Protein Total Protein Albumin Triglycerides LDL Cholesterol Direct HDL Cholesterol Free T4 PTH Intact Urine WBC (Auto) Urine Creatinine Salicylates Acetaminophen Crossmatch 04/03/19 04/04/19 04/04/19 23:43 04:47 04:47 WBC RBC 2.72 L Hgb 8.3 L Hct 24.7 L MCV RDW 15.6 H Plt Count Lymph % (Auto) [place] % (Auto) 10.1 H Lymph # 0.8 L [place] # Seg Neutrophils % 71.4 H Seg Neuts % (Manual) Lymphocytes % (Manual) Monocytes % (Manual) Nucleated RBC % Seg Neutrophils # Seg Neutrophils # Man Lymphocytes # (Manual) Monocytes # (Manual) PT INR D-Dimer Heparin Anti-Xa Level POC ABG pH ABG pH POC ABG pCO2 POC ABG pO2 ABG pO2 123.8 H ABG HCO3 ABG O2 Saturation ABG Base Excess -3.0 L ABG Hemoglobin 7.9 L Oxyhemoglobin Sodium 134 L Potassium Chloride 97.9 L Carbon Dioxide BUN 64 H Creatinine 8.1 H Glucose POC Glucose Lactic Acid Calcium 7.2 L Ionized Calcium Phosphorus Magnesium Iron TIBC Ferritin Total Bilirubin Direct Bilirubin AST ALT Alkaline Phosphatase Total Creatine Kinase CK-MB (CK-2) Troponin T C-Reactive Protein Total Protein Albumin Triglycerides LDL Cholesterol Direct HDL Cholesterol Free T4 PTH Intact Urine WBC (Auto) Urine Creatinine Salicylates Acetaminophen Crossmatch 04/04/19 04/04/19 04/04/19 06:07 13:40 18:18 WBC RBC Hgb Hct MCV RDW Plt Count Lymph % (Auto) [place] % (Auto) Lymph # [place] # Seg Neutrophils % Seg Neuts % (Manual) Lymphocytes % (Manual) Monocytes % (Manual) Nucleated RBC % Seg Neutrophils # Seg Neutrophils # Man Lymphocytes # (Manual) Monocytes # (Manual) PT INR D-Dimer Heparin Anti-Xa Level POC ABG pH ABG pH POC ABG pCO2 POC ABG pO2 ABG pO2 95.9 H ABG HCO3 ABG O2 Saturation ABG Base Excess -3.0 L ABG Hemoglobin 8.5 L Oxyhemoglobin Sodium Potassium Chloride Carbon Dioxide BUN Creatinine Glucose POC Glucose 107 H 107 H Lactic Acid Calcium Ionized Calcium Phosphorus Magnesium Iron TIBC Ferritin Total Bilirubin Direct Bilirubin AST ALT Alkaline Phosphatase Total Creatine Kinase CK-MB (CK-2) Troponin T C-Reactive Protein Total Protein Albumin Triglycerides LDL Cholesterol Direct HDL Cholesterol Free T4 PTH Intact Urine WBC (Auto) Urine Creatinine Salicylates Acetaminophen Crossmatch 04/04/19 04/05/19 04/05/19 21:22 04:09 04:09 WBC RBC 2.76 L Hgb 8.4 L Hct 25.4 L MCV RDW 15.8 H Plt Count 133 L Lymph % (Auto) [place] % (Auto) 9.6 H Lymph # 0.7 L [place] # Seg Neutrophils % 72.6 H Seg Neuts % (Manual) Lymphocytes % (Manual) Monocytes % (Manual) Nucleated RBC % Seg Neutrophils # Seg Neutrophils # Man Lymphocytes # (Manual) Monocytes # (Manual) PT INR D-Dimer Heparin Anti-Xa Level POC ABG pH ABG pH POC ABG pCO2 47.2 H POC ABG pO2 137 H ABG pO2 ABG HCO3 ABG O2 Saturation ABG Base Excess ABG Hemoglobin Oxyhemoglobin Sodium 136 L Potassium Chloride Carbon Dioxide BUN 46 H Creatinine 6.7 H Glucose POC Glucose Lactic Acid Calcium 7.7 L Ionized Calcium Phosphorus Magnesium Iron TIBC Ferritin Total Bilirubin Direct Bilirubin AST ALT Alkaline Phosphatase Total Creatine Kinase CK-MB (CK-2) Troponin T C-Reactive Protein Total Protein Albumin Triglycerides LDL Cholesterol Direct HDL Cholesterol Free T4 PTH Intact Urine WBC (Auto) Urine Creatinine Salicylates Acetaminophen Crossmatch 04/05/19 04/05/19 04/05/19 05:28 06:14 16:50 WBC RBC Hgb Hct MCV RDW Plt Count Lymph % (Auto) [place] % (Auto) Lymph # [place] # Seg Neutrophils % Seg Neuts % (Manual) Lymphocytes % (Manual) Monocytes % (Manual) Nucleated RBC % Seg Neutrophils # Seg Neutrophils # Man Lymphocytes # (Manual) Monocytes # (Manual) PT INR D-Dimer Heparin Anti-Xa Level POC ABG pH ABG pH POC ABG pCO2 POC ABG pO2 67 L ABG pO2 ABG HCO3 ABG O2 Saturation ABG Base Excess ABG Hemoglobin Oxyhemoglobin Sodium Potassium Chloride Carbon Dioxide BUN Creatinine Glucose POC Glucose 108 H Lactic Acid Calcium Ionized Calcium Phosphorus Magnesium Iron TIBC Ferritin Total Bilirubin Direct Bilirubin AST ALT Alkaline Phosphatase Total Creatine Kinase CK-MB (CK-2) Troponin T C-Reactive Protein Total Protein Albumin Triglycerides LDL Cholesterol Direct HDL Cholesterol Free T4 PTH Intact Urine WBC (Auto) 40.0 H Urine Creatinine Salicylates Acetaminophen Crossmatch 04/05/19 04/06/19 04/06/19 17:22 00:13 04:44 WBC RBC 2.48 L Hgb 7.5 L Hct 22.9 L MCV RDW 16.0 H Plt Count 107 L Lymph % (Auto) [place] % (Auto) 10.7 H Lymph # 1.0 L [place] # Seg Neutrophils % Seg Neuts % (Manual) Lymphocytes % (Manual) Monocytes % (Manual) Nucleated RBC % Seg Neutrophils # Seg Neutrophils # Man Lymphocytes # (Manual) Monocytes # (Manual) PT INR D-Dimer Heparin Anti-Xa Level POC ABG pH ABG pH POC ABG pCO2 POC ABG pO2 ABG pO2 ABG HCO3 ABG O2 Saturation ABG Base Excess ABG Hemoglobin Oxyhemoglobin Sodium Potassium Chloride Carbon Dioxide BUN Creatinine Glucose POC Glucose 118 H 138 H Lactic Acid Calcium Ionized Calcium Phosphorus Magnesium Iron TIBC Ferritin Total Bilirubin Direct Bilirubin AST ALT Alkaline Phosphatase Total Creatine Kinase CK-MB (CK-2) Troponin T C-Reactive Protein Total Protein Albumin Triglycerides LDL Cholesterol Direct HDL Cholesterol Free T4 PTH Intact Urine WBC (Auto) Urine Creatinine Salicylates Acetaminophen Crossmatch 04/06/19 04/06/19 04/06/19 04:44 05:20 05:23 WBC RBC Hgb Hct MCV RDW Plt Count Lymph % (Auto) [place] % (Auto) Lymph # [place] # Seg Neutrophils % Seg Neuts % (Manual) Lymphocytes % (Manual) Monocytes % (Manual) Nucleated RBC % Seg Neutrophils # Seg Neutrophils # Man Lymphocytes # (Manual) Monocytes # (Manual) PT INR D-Dimer Heparin Anti-Xa Level POC ABG pH ABG pH POC ABG pCO2 POC ABG pO2 ABG pO2 104.0 H ABG HCO3 ABG O2 Saturation ABG Base Excess -2.1 L ABG Hemoglobin 7.3 L Oxyhemoglobin Sodium Potassium Chloride Carbon Dioxide BUN 64 H Creatinine 8.2 H Glucose 103 H POC Glucose 118 H Lactic Acid Calcium 7.3 L Ionized Calcium Phosphorus Magnesium Iron TIBC Ferritin Total Bilirubin Direct Bilirubin AST ALT Alkaline Phosphatase Total Creatine Kinase CK-MB (CK-2) Troponin T C-Reactive Protein Total Protein Albumin Triglycerides LDL Cholesterol Direct HDL Cholesterol Free T4 PTH Intact Urine WBC (Auto) Urine Creatinine Salicylates Acetaminophen Crossmatch 04/06/19 04/07/19 04/07/19 12:02 05:40 05:40 WBC RBC 2.59 L Hgb 7.9 L Hct 23.8 L MCV RDW 15.8 H Plt Count 89 L Lymph % (Auto) [place] % (Auto) 10.3 H Lymph # 1.1 L [place] # Seg Neutrophils % Seg Neuts % (Manual) Lymphocytes % (Manual) Monocytes % (Manual) Nucleated RBC % Seg Neutrophils # Seg Neutrophils # Man Lymphocytes # (Manual) Monocytes # (Manual) PT INR D-Dimer Heparin Anti-Xa Level POC ABG pH ABG pH POC ABG pCO2 POC ABG pO2 ABG pO2 ABG HCO3 ABG O2 Saturation ABG Base Excess ABG Hemoglobin Oxyhemoglobin Sodium 136 L Potassium 3.5 L Chloride Carbon Dioxide BUN 46 H Creatinine 6.2 H Glucose POC Glucose 108 H Lactic Acid Calcium 7.9 L Ionized Calcium Phosphorus Magnesium Iron TIBC Ferritin Total Bilirubin Direct Bilirubin AST ALT Alkaline Phosphatase Total Creatine Kinase CK-MB (CK-2) Troponin T C-Reactive Protein Total Protein Albumin Triglycerides LDL Cholesterol Direct HDL Cholesterol Free T4 PTH Intact Urine WBC (Auto) Urine Creatinine Salicylates Acetaminophen Crossmatch 04/07/19 04/09/19 04/09/19 12:57 04:28 04:28 WBC RBC 2.85 L Hgb 8.7 L Hct 26.2 L MCV RDW 15.6 H Plt Count Lymph % (Auto) [place] % (Auto) 10.4 H Lymph # 1.0 L [place] # Seg Neutrophils % 73.3 H Seg Neuts % (Manual) Lymphocytes % (Manual) Monocytes % (Manual) Nucleated RBC % Seg Neutrophils # Seg Neutrophils # Man Lymphocytes # (Manual) Monocytes # (Manual) PT INR D-Dimer Heparin Anti-Xa Level POC ABG pH ABG pH POC ABG pCO2 POC ABG pO2 107 H ABG pO2 ABG HCO3 ABG O2 Saturation ABG Base Excess ABG Hemoglobin Oxyhemoglobin Sodium Potassium 3.5 L Chloride 97.8 L Carbon Dioxide BUN 62 H Creatinine 8.1 H Glucose POC Glucose Lactic Acid Calcium 8.2 L Ionized Calcium Phosphorus 5.10 H Magnesium Iron TIBC Ferritin Total Bilirubin Direct Bilirubin AST ALT Alkaline Phosphatase Total Creatine Kinase CK-MB (CK-2) Troponin T C-Reactive Protein Total Protein Albumin Triglycerides LDL Cholesterol Direct HDL Cholesterol Free T4 PTH Intact Urine WBC (Auto) Urine Creatinine Salicylates Acetaminophen Crossmatch 04/10/19 04/11/19 04/11/19 18:15 00:25 04:16 WBC 11.5 H RBC 2.91 L Hgb 8.9 L Hct 27.6 L MCV 95 H RDW 17.5 H Plt Count Lymph % (Auto) [place] % (Auto) Lymph # [place] # Seg Neutrophils % Seg Neuts % (Manual) 71.0 H Lymphocytes % (Manual) Monocytes % (Manual) 8.0 H Nucleated RBC % Seg Neutrophils # Seg Neutrophils # Man 8.2 H Lymphocytes # (Manual) Monocytes # (Manual) 0.9 H PT INR D-Dimer Heparin Anti-Xa Level POC ABG pH ABG pH POC ABG pCO2 POC ABG pO2 ABG pO2 ABG HCO3 ABG O2 Saturation ABG Base Excess ABG Hemoglobin Oxyhemoglobin Sodium Potassium Chloride Carbon Dioxide BUN Creatinine Glucose POC Glucose 109 H 114 H Lactic Acid Calcium Ionized Calcium Phosphorus Magnesium Iron TIBC Ferritin Total Bilirubin Direct Bilirubin AST ALT Alkaline Phosphatase Total Creatine Kinase CK-MB (CK-2) Troponin T C-Reactive Protein Total Protein Albumin Triglycerides LDL Cholesterol Direct HDL Cholesterol Free T4 PTH Intact Urine WBC (Auto) Urine Creatinine Salicylates Acetaminophen Crossmatch 04/11/19 04/11/19 04/11/19 06:47 09:21 12:15 WBC RBC Hgb Hct MCV RDW Plt Count Lymph % (Auto) [place] % (Auto) Lymph # [place] # Seg Neutrophils % Seg Neuts % (Manual) Lymphocytes % (Manual) Monocytes % (Manual) Nucleated RBC % Seg Neutrophils # Seg Neutrophils # Man Lymphocytes # (Manual) Monocytes # (Manual) PT INR D-Dimer Heparin Anti-Xa Level POC ABG pH ABG pH POC ABG pCO2 POC ABG pO2 ABG pO2 ABG HCO3 ABG O2 Saturation ABG Base Excess ABG Hemoglobin Oxyhemoglobin Sodium Potassium 3.5 L Chloride Carbon Dioxide BUN 45 H Creatinine 6.0 H Glucose 113 H POC Glucose 106 H 109 H Lactic Acid Calcium Ionized Calcium Phosphorus Magnesium Iron TIBC Ferritin Total Bilirubin Direct Bilirubin AST ALT Alkaline Phosphatase Total Creatine Kinase CK-MB (CK-2) Troponin T C-Reactive Protein Total Protein Albumin Triglycerides LDL Cholesterol Direct HDL Cholesterol Free T4 PTH Intact Urine WBC (Auto) Urine Creatinine Salicylates Acetaminophen Crossmatch 04/11/19 04/12/19 04/12/19 18:42 12:13 23:52 WBC RBC Hgb Hct MCV RDW Plt Count Lymph % (Auto) [place] % (Auto) Lymph # [place] # Seg Neutrophils % Seg Neuts % (Manual) Lymphocytes % (Manual) Monocytes % (Manual) Nucleated RBC % Seg Neutrophils # Seg Neutrophils # Man Lymphocytes # (Manual) Monocytes # (Manual) PT INR D-Dimer Heparin Anti-Xa Level POC ABG pH ABG pH POC ABG pCO2 POC ABG pO2 ABG pO2 ABG HCO3 ABG O2 Saturation ABG Base Excess ABG Hemoglobin Oxyhemoglobin Sodium Potassium Chloride Carbon Dioxide BUN Creatinine Glucose POC Glucose 107 H 115 H 124 H Lactic Acid Calcium Ionized Calcium Phosphorus Magnesium Iron TIBC Ferritin Total Bilirubin Direct Bilirubin AST ALT Alkaline Phosphatase Total Creatine Kinase CK-MB (CK-2) Troponin T C-Reactive Protein Total Protein Albumin Triglycerides LDL Cholesterol Direct HDL Cholesterol Free T4 PTH Intact Urine WBC (Auto) Urine Creatinine Salicylates Acetaminophen Crossmatch 04/13/19 04/13/19 04/13/19 05:00 05:00 05:47 WBC 11.7 H RBC 2.97 L Hgb 8.8 L Hct 27.3 L MCV RDW 16.1 H Plt Count Lymph % (Auto) 9.5 L [place] % (Auto) 9.9 H Lymph # 1.1 L [place] # 1.2 H Seg Neutrophils % 78.6 H Seg Neuts % (Manual) Lymphocytes % (Manual) Monocytes % (Manual) Nucleated RBC % Seg Neutrophils # 9.2 H Seg Neutrophils # Man Lymphocytes # (Manual) Monocytes # (Manual) PT INR D-Dimer Heparin Anti-Xa Level POC ABG pH ABG pH POC ABG pCO2 POC ABG pO2 ABG pO2 ABG HCO3 ABG O2 Saturation ABG Base Excess ABG Hemoglobin Oxyhemoglobin Sodium Potassium 3.5 L Chloride Carbon Dioxide BUN 42 H Creatinine 4.6 H Glucose 106 H POC Glucose 107 H Lactic Acid Calcium 10.6 H D Ionized Calcium Phosphorus 5.90 H Magnesium Iron TIBC Ferritin Total Bilirubin Direct Bilirubin AST ALT Alkaline Phosphatase Total Creatine Kinase CK-MB (CK-2) Troponin T C-Reactive Protein Total Protein 5.8 L Albumin 2.5 L Triglycerides LDL Cholesterol Direct HDL Cholesterol Free T4 PTH Intact Urine WBC (Auto) Urine Creatinine Salicylates Acetaminophen Crossmatch 04/13/19 04/14/19 04/14/19 17:32 00:00 03:55 WBC RBC Hgb Hct MCV RDW Plt Count Lymph % (Auto) [place] % (Auto) Lymph # [place] # Seg Neutrophils % Seg Neuts % (Manual) Lymphocytes % (Manual) Monocytes % (Manual) Nucleated RBC % Seg Neutrophils # Seg Neutrophils # Man Lymphocytes # (Manual) Monocytes # (Manual) PT INR D-Dimer Heparin Anti-Xa Level POC ABG pH ABG pH POC ABG pCO2 POC ABG pO2 ABG pO2 ABG HCO3 ABG O2 Saturation ABG Base Excess ABG Hemoglobin Oxyhemoglobin Sodium Potassium 3.0 L Chloride Carbon Dioxide BUN 30 H Creatinine 3.1 H Glucose POC Glucose 112 H 120 H Lactic Acid Calcium 10.8 H Ionized Calcium Phosphorus Magnesium Iron TIBC Ferritin Total Bilirubin Direct Bilirubin AST ALT Alkaline Phosphatase Total Creatine Kinase CK-MB (CK-2) Troponin T C-Reactive Protein Total Protein Albumin Triglycerides LDL Cholesterol Direct HDL Cholesterol Free T4 PTH Intact Urine WBC (Auto) Urine Creatinine Salicylates Acetaminophen Crossmatch 04/14/19 04/14/19 04/15/19 11:56 23:28 05:11 WBC 13.0 H RBC 2.93 L Hgb 8.6 L Hct 26.5 L MCV RDW 16.5 H Plt Count Lymph % (Auto) 12.2 L [place] % (Auto) 9.1 H Lymph # [place] # 1.2 H Seg Neutrophils % 77.6 H Seg Neuts % (Manual) Lymphocytes % (Manual) Monocytes % (Manual) Nucleated RBC % Seg Neutrophils # 10.1 H Seg Neutrophils # Man Lymphocytes # (Manual) Monocytes # (Manual) PT INR D-Dimer Heparin Anti-Xa Level POC ABG pH ABG pH POC ABG pCO2 POC ABG pO2 ABG pO2 ABG HCO3 ABG O2 Saturation ABG Base Excess ABG Hemoglobin Oxyhemoglobin Sodium Potassium Chloride Carbon Dioxide BUN Creatinine Glucose POC Glucose 109 H 112 H Lactic Acid Calcium Ionized Calcium Phosphorus Magnesium Iron TIBC Ferritin Total Bilirubin Direct Bilirubin AST ALT Alkaline Phosphatase Total Creatine Kinase CK-MB (CK-2) Troponin T C-Reactive Protein Total Protein Albumin Triglycerides LDL Cholesterol Direct HDL Cholesterol Free T4 PTH Intact Urine WBC (Auto) Urine Creatinine Salicylates Acetaminophen Crossmatch 04/15/19 04/15/19 05:11 05:31 WBC RBC Hgb Hct MCV RDW Plt Count Lymph % (Auto) [place] % (Auto) Lymph # [place] # Seg Neutrophils % Seg Neuts % (Manual) Lymphocytes % (Manual) Monocytes % (Manual) Nucleated RBC % Seg Neutrophils # Seg Neutrophils # Man Lymphocytes # (Manual) Monocytes # (Manual) PT INR D-Dimer Heparin Anti-Xa Level POC ABG pH ABG pH POC ABG pCO2 POC ABG pO2 ABG pO2 ABG HCO3 ABG O2 Saturation ABG Base Excess ABG Hemoglobin Oxyhemoglobin Sodium Potassium 3.2 L Chloride Carbon Dioxide BUN 44 H Creatinine 3.6 H Glucose 106 H POC Glucose 110 H Lactic Acid Calcium 12.0 H Ionized Calcium Phosphorus 5.00 H Magnesium Iron TIBC Ferritin Total Bilirubin Direct Bilirubin AST ALT Alkaline Phosphatase Total Creatine Kinase CK-MB (CK-2) Troponin T C-Reactive Protein Total Protein Albumin Triglycerides LDL Cholesterol Direct HDL Cholesterol Free T4 PTH Intact Urine WBC (Auto) Urine Creatinine Salicylates Acetaminophen Crossmatch Allied health notes reviewed: nursing
[2019-04-15] MEDS: CEFEPIME/NS 2 GM/100 ML 2 GM/100 ML BAG IV SCH (18:55)
--- NOTE | 2019-04-15 20:05 | Progress Note ---
Assessment and Plan Cultures: 03/16/2019 sputum: salivary contamination 03/16/2019 Blood culture: no growth 03/17/2019 Urine culture no growth 03/17/2019 throat culture: no growth 03/26/2019 Blood culture: no growth so far 03/27/2019 Blood culture negative. Assessment: 43y/o male with possible psych history admitted on 03/16/2019 with: 1) Severe sepsis with Septic shock: shock resolved, still persistent high fever ? drug fever, ?sinusitis, ?line infection, ?DVT 2) Probable aspiration pneumonia: Already completed adequate abx. 3) Acute respiratory failure: on the vent. Improving. 4) ?Right axillary edema: no abscess, US no collection seen 5) Acute encephalopathy: resolving 6) Acute renal failure: renally dosing all abx, on HD 7) Elevated LFTs/shock liver: also likely elevated from Rhabdomyolysis. Viral hepatitis panel negative. LFTs continue to improve. 8) Thrombocytopenia: multifactorial - better 9) Rhabdomyolysis: CK continues to improve 10) ?Enteritis: per CT ? no collection no perforation no obvious ischemic bowel. Gen. Surg following Recommendations: repeat blood cultures, UA, urine culture, CXR remove NGT change central lines currently on cefepime, levaquin and pulse vancomycin - will consider stopping all abx soon if cultures negative Will follow. Risa Bryant MD Infectious Diseases [facility] [phone] Subjective Date of service: 04/15/19 Principal diagnosis: Septic Shock; Ac. hypoxemic resp failure; Renzo. PNA; Rhabdomyolysis; RUBEN Interval history: Patient is alert, talking, follows commands, still fever Objective - Exam Narrative Exam: General appearance: alert in NAD Eyes: pupils renzo contracted poorly reactive, no jaundice HENT: Atraumatic; oropharynx thick secretion NGT Neck: no JVD Lungs:distant BS CV: RRR Abdomen: Soft, non-tender Extremities: marked renzo leg edema/arm edema Skin:+skin tears, +scrotal edema Psych:no agitated Neuro: follows commands no agitated Right IJ cath - Constitutional Vitals: Vital Signs Temp Pulse Resp BP Pulse Ox 100.1 F H 89 19 121/84 95 04/15/19 16:00 04/15/19 19:01 04/15/19 19:01 04/15/19 19:01 04/15/19 19:01 Temperature -Last 24 Hours Temperature 100.1 F Temperature 101.3 F Temperature 101.3 F Temperature 102.1 F Temperature 102.1 F Temperature 101.2 F - Labs CBC & Chem 7: 04/15/19 05:11 04/15/19 05:11 Labs: Abnormal lab results 04/14/19 04/15/19 04/15/19 Range/Units 23:28 05:11 05:11 WBC 13.0 H (4.5-11.0) K/mm3 RBC 2.93 L (3.65-5.03) M/mm3 Hgb 8.6 L (11.8-15.2) gm/dl Hct 26.5 L (35.5-45.6) % RDW 16.5 H (13.2-15.2) % Lymph % (Auto) 12.2 L (13.4-35.0) % [place] % (Auto) 9.1 H (0.0-7.3) % [place] # 1.2 H (0.0-0.8) K/mm3 Seg Neutrophils % 77.6 H (40.0-70.0) % Seg Neutrophils # 10.1 H (1.8-7.7) K/mm3 Potassium 3.2 L (3.6-5.0) mmol/L BUN 44 H (9-20) mg/dL Creatinine 3.6 H (0.8-1.5) mg/dL Glucose 106 H (75-100) mg/dL POC Glucose 112 H (70-105) Calcium 12.0 H (8.4-10.2) mg/dL Phosphorus 5.00 H (2.5-4.5) mg/dL 04/15/19 Range/Units 05:31 WBC (4.5-11.0) K/mm3 RBC (3.65-5.03) M/mm3 Hgb (11.8-15.2) gm/dl Hct (35.5-45.6) % RDW (13.2-15.2) % Lymph % (Auto) (13.4-35.0) % [place] % (Auto) (0.0-7.3) % [place] # (0.0-0.8) K/mm3 Seg Neutrophils % (40.0-70.0) % Seg Neutrophils # (1.8-7.7) K/mm3 Potassium (3.6-5.0) mmol/L BUN (9-20) mg/dL Creatinine (0.8-1.5) mg/dL Glucose (75-100) mg/dL POC Glucose 110 H (70-105) Calcium (8.4-10.2) mg/dL Phosphorus (2.5-4.5) mg/dL
--- NOTE | 2019-04-15 22:08 | XRay Report ---
CHEST 1 VIEW INDICATION / CLINICAL INFORMATION: eval for pneumonia. COMPARISON: Chest radiograph 03/31/2019 FINDINGS: SUPPORT DEVICES: Stable, satisfactory position of right IJ hemodialysis catheter. Feeding tube course s into the stomach, with the weighted metallic tip partially visualized at the left upper quadrant, p robably in the stomach. Previously seen endotracheal tube is no longer present. HEART / MEDIASTINUM: Stable. LUNGS / PLEURA: Mild, diffuse, symmetric patchy and reticular opacities are seen in the lungs. Denser left retrocardiac opacity obscured portion of the left hemidiaphragm. No pneumothorax. IMPRESSION: 1. Diffuse reticulonodular opacities are more suggestive of pulmonary edema than pneumonia. Mild left retrocardiac opacity is at least partially due to subsegmental atelectasis, but superimposed pneumon ia or aspirated material cannot be excluded. Signer Name: Abiodun Atkinson MD Signed: 04/15/2019 10:04 PM Workstation Name: [id number]
[2019-04-15 22:31] LABS: Bilirubin,Urine NEG (Negative); Blood,Urine MOD (Negative); Color,Urine Yellow (Yellow); Urobilinogen,Urine < 2.0 mg/dL (<2.0)
[2019-04-16] MEDS: BUMETANIDE 2.5 MG/10 ML VIAL IV SCH (05:01)
[2019-04-16] MEDS: ACETAMINOPHEN 325 MG TAB PO PRN ×2 (05:01→18:22)
[2019-04-16 05:29] LABS: Basophils # (Auto) 0.1 K/mm3 (0.0-0.1); Basophils % (Auto) 0.9 % (0.0-1.8); Eosinophils # (Auto) 0.1 K/mm3 (0.0-0.4); Eosinophils % (Auto) 0.8 % (0.0-4.3); Hematocrit 28.2 % (35.5-45.6); Lymphocytes # (Auto) 1.3 K/mm3 (1.2-5.4); Lymphocytes % (Auto) 10.3 % (13.4-35.0); Mean Corpuscular HGB Conc 32 % (32-34); Mean Corpuscular Volume 90 fl (84-94); Monocytes # (Auto) 1.2 K/mm3 (0.0-0.8); Monocytes % (Auto) 9.8 % (0.0-7.3); Platelet Count 189 K/mm3 (140-440); Red Blood Count 3.12 M/mm3 (3.65-5.03); Red Cell Distribution Width 16.6 % (13.2-15.2)
[2019-04-16 05:48] LABS: Calcium 11.7 mg/dL (8.4-10.2)
--- NOTE | 2019-04-16 07:03 | Hem/Onc Progress Note ---
Assessment and Plan 1. h/o Anemia. The patient has history of bleeding. 2. rt Internal jugular partial thrombosis. The patient was started on heparin. This has been held due to bleeding 3. Gastrointestinal bleed. 4. h/o Elevated creatinine kinase. 5. h/o Low calcium. 6. h/o Thrombocytopenia. 7. h/o Renal failure. 8. h/o Intubation. 9. s/p Transfusion support. 10. Leukocytosis. At this time, supportive care may help the patient. The patient's platelet was low at admission. Urine toxicology was negative. awake extubated dvt - off anticoagulation - due to bleeding platelet - > 100 s/p iv iron trial pt was on BIPAP h/o tachycardia - on meds moving arms>legs d/w RN - fever issues - Patient Problems (1) DVT (deep venous thrombosis) Current Visit: Yes Status: Acute Subjective Date of service: 04/16/19 Principal diagnosis: anemia - DVT IJ Interval history: a fib Objective - Exam Narrative Exam: Pain - none now General appearance - awake Performance status limited self care Eyes - no icterus ENT - extubated LNs cervical not palpable Neck - no LN Respiratory Normal Breath sounds - CTA anteriorly CVS S1 S2 + Extremities edema + General GI Soft Rectal deferred male - deferred Skin warm Musculoskeletal arms>legs Neurologically awake - Constitutional Vitals: Last Vital Signs Temp 102.6 F H 04/16/19 04:00 Pulse 146 H 04/16/19 06:01 Resp 24 04/16/19 06:01 BP 140/73 04/16/19 06:01 Pulse Ox 98 04/16/19 06:01 - Labs Lab Results: Laboratory Results - last 24 hr 04/15/19 04/15/19 04/15/19 12:11 18:03 22:11 WBC RBC Hgb Hct MCV MCH MCHC RDW Plt Count Lymph % (Auto) [place] % (Auto) Eos % (Auto) Baso % (Auto) Lymph # [place] # Eos # Baso # Seg Neutrophils % Seg Neutrophils # Sodium Potassium Chloride Carbon Dioxide Anion Gap BUN Creatinine Estimated GFR BUN/Creatinine Ratio Glucose POC Glucose 93 121 H Calcium Urine Color Yellow Urine Turbidity Clear Urine pH 6.0 Ur Specific [place] 1.010 Urine Protein 30 mg/dl Urine Glucose (UA) Neg Urine Ketones Neg Urine Blood Mod Urine Nitrite Neg Urine Bilirubin Neg Urine Urobilinogen < 2.0 Ur Leukocyte Esterase Neg Urine WBC (Auto) 4.0 Urine RBC (Auto) 2.0 U Epithel Cells (Auto) < 1.0 04/15/19 04/16/19 04/16/19 23:21 05:07 05:07 WBC 12.6 H RBC 3.12 L Hgb 9.0 L Hct 28.2 L MCV 90 MCH 29 MCHC 32 RDW 16.6 H Plt Count 189 Lymph % (Auto) 10.3 L [place] % (Auto) 9.8 H Eos % (Auto) 0.8 Baso % (Auto) 0.9 Lymph # 1.3 [place] # 1.2 H Eos # 0.1 Baso # 0.1 Seg Neutrophils % 78.2 H Seg Neutrophils # 9.9 H Sodium 147 H Potassium 3.5 L Chloride 101.6 Carbon Dioxide 30 Anion Gap 19 BUN 54 H Creatinine 3.8 H Estimated GFR 17 BUN/Creatinine Ratio 14 Glucose 102 H POC Glucose 94 Calcium 11.7 H Urine Color Urine Turbidity Urine pH Ur Specific [place] Urine Protein Urine Glucose (UA) Urine Ketones Urine Blood Urine Nitrite Urine Bilirubin Urine Urobilinogen Ur Leukocyte Esterase Urine WBC (Auto) Urine RBC (Auto) U Epithel Cells (Auto) 04/16/19 05:34 WBC RBC Hgb Hct MCV MCH MCHC RDW Plt Count Lymph % (Auto) [place] % (Auto) Eos % (Auto) Baso % (Auto) Lymph # [place] # Eos # Baso # Seg Neutrophils % Seg Neutrophils # Sodium Potassium Chloride Carbon Dioxide Anion Gap BUN Creatinine Estimated GFR BUN/Creatinine Ratio Glucose POC Glucose 105 Calcium Urine Color Urine Turbidity Urine pH Ur Specific [place] Urine Protein Urine Glucose (UA) Urine Ketones Urine Blood Urine Nitrite Urine Bilirubin Urine Urobilinogen Ur Leukocyte Esterase Urine WBC (Auto) Urine RBC (Auto) U Epithel Cells (Auto) Medications & Allergies - Medications Allergies/Adverse Reactions: Allergies No Known Allergies Allergy (Unverified 03/16/19 17:17) Home Medications: Home Medications Medication Instructions Recorded Confirmed Last Taken Type Unobtainable 03/18/19 03/18/19 Unknown History Active Medications: Generic Name Dose Route Start Last Admin Trade Name Freq PRN Reason Stop Dose Admin Acetaminophen 650 mg 04/02/19 23:26 04/16/19 05:01 Tylenol PO 650 mg Q4H PRN Administration Pain, Mild (1-3),temp>100.5 Albuterol 2.5 mg 03/29/19 13:08 Proventil IH Q4HRT PRN Shortness Of Breath Amiodarone HCl 200 mg 04/15/19 22:00 04/15/19 21:15 Cordarone PO 200 mg BID PAOLO Administration Bacitracin 1 applic 04/09/19 02:43 04/11/19 00:20 Antibiotic Oint TP 1 applic PRN PRN Administration upper lip sore/open Bumetanide 2 mg 04/10/19 18:00 04/16/19 05:01 Bumex IV 2 mg BID@0600,1800 PAOLO Administration Dextrose 50 gm 03/19/19 18:39 03/26/19 23:26 D50w (25gm) Vial IV 50 gm PRN PRN Administration Hypoglycemia Epoetin Jet 20,000 unit 03/31/19 10:15 04/13/19 17:41 Procrit SUB-Q 20,000 unit NEYMAR PRN Administration hemodialysis Hydralazine HCl 20 mg 04/14/19 03:00 04/14/19 03:11 Apresoline IV 20 mg Q4H PRN Administration hypertemsion Hydrophilic Ointment 1 applic 03/16/19 15:50 Vaseline Lip Therapy TP Q2HR PRN Dry Lips Cefepime HCl 2 gm in 100 mls @ 200 mls/hr 04/11/19 18:00 04/15/19 18:55 Maxipime/Ns 2 Gm/100 Ml IV 200 mls/hr QPM PAOLO Administration Protocol Sodium Chloride 100 mls @ 999 mls/hr 04/13/19 08:30 Nacl 0.9% IV NEYMAR PRN Hypotension Levofloxacin/Dextrose 500 mg in 100 mls @ 100 mls/hr 04/17/19 10:00 Levaquin 500mg/100ml IV Q48HR PAOLO Lansoprazole 30 mg 04/11/19 10:00 04/15/19 21:13 Prevacid Solutab FEEDTUBE 30 mg BID PAOLO Administration Metoprolol Tartrate 25 mg 04/15/19 11:00 04/15/19 21:13 Lopressor PO 25 mg BID PAOLO Administration Multi-Ingred Cream/Lotion/Oil/Oint 1 applic 03/16/19 15:50 03/19/19 20:10 Artificial Tears Ophth Oint OU 1 applic Q4HR PRN Administration Dry Eye(s) Ondansetron HCl 4 mg 03/16/19 22:21 04/14/19 20:10 Zofran IV 4 mg Q8H PRN Administration Nausea And Vomiting
[2019-04-16] MEDS: METOPROLOL TARTRATE 25 MG TAB PO SCH ×2 (09:29→23:19)
[2019-04-16] MEDS: AMIODARONE 200 MG TAB PO SCH ×2 (09:29→23:18)
[2019-04-16] MEDS: LANSOPRAZOLE 30 MG SOLUTAB FEEDTUBE SCH ×2 (09:30→23:18)
--- NOTE | 2019-04-16 09:49 | Progress Note ---
Assessment and Plan 1. Acute kidney injury: Vasomotor RUBEN in the setting of shock / volume depletion / Rhabdo. Baseline renal function is unknown. CT abdomen was negative for obstructive nephropathy. Monitor renal function. Intermittent bladder scan less than 100 ml. Renal prognosis is guarded. Avoid nephrotoxic agents. Meds dosage based on GFR. Possible some improvement in the renal function. Hold hemodialysis for now and monitor renal function. Patient was started on hemodialysis on 03/18/19 due to worsening metabolic acidosis and hyperkalemia. Hemodialysis: 03/18, 03/19, 03/20, 03/22, 03/23, 03/24, 03/26, 03/28, 03/29, 03/31, 04/02, 04/04, 04/06, 04/09, 04/11, 04/13. 2. FEN: Hypokalemia, replete K. Hypernatremia, stop Bumex and monitor. Metabolic acidosis, improved. Volume overload, improving. Hypercalcemia, [place] and Phoslo were stopped. Monitor lytes. 3. Septic shock: Followed by ID. Currently off pressors. Recurrent fever. 4. Rhabdomyolysis: Improved. 5. A.fib with RVR: On Amiodarone and Metoprolol. Followed by Cards. 6. Respiratory failure: Extubated. On BIPAP intermittently. 7. Severe anemia: S/p PRBC. On Epogen. 8. Elevated transaminases: Improved. 9. Encephalopathy. Examination: General appearance: well-developed, appears stated age, obese, NG tube noted HEENT: Atraumatic EYES: Pupils reacting to light Neck: supple Respiratory: CTAB, decreased breath sounds Cardiology: regular, S1S2 heard, no murmur Gastrointestinal: obese, BS heard, not tender Integumentary: no rash noted Neurologic: opens eyes, able to move extremities Ext: L UE edematous Hemodialysis access: R IJ temp catheter Subjective Date of service: 04/16/19 Principal diagnosis: anemia - DVT IJ Interval history: Patient was seen and examined at the bedside. Objective - Vital Signs Vital signs: Vital Signs - 12hr 04/15/19 04/15/19 04/15/19 22:00 22:01 22:49 Temperature Pulse Rate 87 88 Pulse Rate [ From Monitor] Respiratory 12 15 Rate Blood Pressure 124/82 124/82 O2 Sat by Pulse 98 99 99 Oximetry 04/15/19 04/16/19 04/16/19 23:01 00:00 00:01 Temperature 100.9 F H Pulse Rate 85 82 82 Pulse Rate [ 82 From Monitor] Respiratory 21 14 14 Rate Blood Pressure 124/82 143/86 O2 Sat by Pulse 98 99 99 Oximetry 04/16/19 04/16/19 04/16/19 01:01 02:01 03:01 Temperature Pulse Rate 85 92 H 95 H Pulse Rate [ From Monitor] Respiratory 14 17 20 Rate Blood Pressure 153/74 153/74 159/83 O2 Sat by Pulse 98 99 98 Oximetry 04/16/19 04/16/19 04/16/19 04:00 05:00 06:01 Temperature 102.6 F H Pulse Rate 97 H 91 H 146 H Pulse Rate [ 97 H From Monitor] Respiratory 34 H 28 H 24 Rate Blood Pressure 159/81 159/81 140/73 O2 Sat by Pulse 97 97 98 Oximetry 04/16/19 04/16/19 04/16/19 07:01 08:00 09:29 Temperature 99.3 F Pulse Rate 124 H 158 H 107 H Pulse Rate [ 107 H From Monitor] Respiratory 37 H 41 H Rate Blood Pressure 140/73 127/88 129/84 O2 Sat by Pulse 98 98 Oximetry - Lab 04/16/19 05:07 04/16/19 05:07 Most recent lab results ABG pH 7.388 pH Units (7.350-7.450) 04/06/19 05:20 ABG pCO2 38.5 mm Hg 04/06/19 05:20 ABG pO2 104.0 mm Hg (80.0-90.0) H 04/06/19 05:20 ABG HCO3 22.6 mmol/L (20.0-26.0) 04/06/19 05:20 ABG O2 Saturation 97.8 % (95.0-99.0) 04/06/19 05:20 Calcium 11.7 mg/dL (8.4-10.2) H 04/16/19 05:07 Phosphorus 5.00 mg/dL (2.5-4.5) H 04/15/19 05:11 Magnesium 1.90 mg/dL (1.7-2.3) 03/31/19 15:07 Urine Creatinine 106.6 mg/dL (0.1-20.0) H 03/17/19 16:05 Urine Sodium 95 mmol/L 03/17/19 16:05 Medications & Allergies - Medications Allergies/Adverse Reactions: Allergies No Known Allergies Allergy (Unverified 03/16/19 17:17) Home Medications: Home Medications Medication Instructions Recorded Confirmed Last Taken Type Unobtainable 03/18/19 03/18/19 Unknown History Active Medications: Generic Name Dose Route Start Last Admin Trade Name Freq PRN Reason Stop Dose Admin Acetaminophen 650 mg 04/02/19 23:26 04/16/19 05:01 Tylenol PO 650 mg Q4H PRN Administration Pain, Mild (1-3),temp>100.5 Albuterol 2.5 mg 03/29/19 13:08 Proventil IH Q4HRT PRN Shortness Of Breath Amiodarone HCl 200 mg 04/15/19 22:00 04/16/19 09:29 Cordarone PO 200 mg BID PAOLO Administration Bacitracin 1 applic 04/09/19 02:43 04/11/19 00:20 Antibiotic Oint TP 1 applic PRN PRN Administration upper lip sore/open Bumetanide 2 mg 04/10/19 18:00 04/16/19 05:01 Bumex IV 2 mg BID@0600,1800 PAOLO Administration Dextrose 50 gm 03/19/19 18:39 03/26/19 23:26 D50w (25gm) Vial IV 50 gm PRN PRN Administration Hypoglycemia Epoetin Jet 20,000 unit 03/31/19 10:15 04/13/19 17:41 Procrit SUB-Q 20,000 unit NEYMAR PRN Administration hemodialysis Hydralazine HCl 20 mg 04/14/19 03:00 04/14/19 03:11 Apresoline IV 20 mg Q4H PRN Administration hypertemsion Hydrophilic Ointment 1 applic 03/16/19 15:50 Vaseline Lip Therapy TP Q2HR PRN Dry Lips Cefepime HCl 2 gm in 100 mls @ 200 mls/hr 04/11/19 18:00 04/15/19 18:55 Maxipime/Ns 2 Gm/100 Ml IV 200 mls/hr QPM PAOLO Administration Protocol Sodium Chloride 100 mls @ 999 mls/hr 04/13/19 08:30 Nacl 0.9% IV NEYMAR PRN Hypotension Levofloxacin/Dextrose 500 mg in 100 mls @ 100 mls/hr 04/17/19 10:00 Levaquin 500mg/100ml IV Q48HR PAOLO Lansoprazole 30 mg 04/11/19 10:00 04/16/19 09:30 Prevacid Solutab FEEDTUBE 30 mg BID PAOLO Administration Metoprolol Tartrate 25 mg 04/15/19 11:00 04/16/19 09:29 Lopressor PO 25 mg BID PAOLO Administration Multi-Ingred Cream/Lotion/Oil/Oint 1 applic 03/16/19 15:50 03/19/19 20:10 Artificial Tears Ophth Oint OU 1 applic Q4HR PRN Administration Dry Eye(s) Ondansetron HCl 4 mg 03/16/19 22:21 04/14/19 20:10 Zofran IV 4 mg Q8H PRN Administration Nausea And Vomiting
--- NOTE | 2019-04-16 10:54 | Progress Note ---
Assessment and Plan Assessment and plan: Acute hypoxic respiratory failure. Continue BiPAP as clinically indicated. Atrial fibrillation. Continue mural and metoprolol. Cardiology following. No systemic AC regarding AFib in setting of anemia, thrombocytopenia, GI bleed. Acute blood loss anemia. Patient with GI bleed secondary to peptic ulcer disease. EGD completed per GI. Continue PRBCs as needed. I'll of H&H. GI bleed/peptic ulcer disease. Continue PPI. Transfuse PRBCs as needed. Sepsis/septic shock. Continue antibiotics per ID. Follow-up blood cultures. Levaquin added. ID following. Patient with recurrent fevers. Ischemic hepatitis/shock liver. Elevated LFTs improved. Viral hepatitis panel negative. Acute kidney injury. Patient now with hemodialysis. Patient was started on hemodialysis on 03/18/19 due to worsening metabolic acidosis and hyperkalemia. Baseline renal function is unknown. CT abdomen was negative for obstructive nephropathy. Avoid nephrotoxic agents. Continue hemodialysis per nephrology. Toxic metabolic encephalopathy. Brain MRI showed no acute intracranial abnormality, mild nonspecific chronic white matter changes, fluid throughout the sinuses and mastoid air cells. Hypokalemia. Replete potassium as needed. Hypernatremia. Bumex was stopped. Follow-up BMP Thrombocytopenia. Etiology likely secondary to sepsis. Resolved. Rhabdomyolysis. CK normalized. Prognosis remains guarded. History Interval history: Patient with persistent fevers. She somnolent and lethargic on BiPAP Hospitalist Physical - Constitutional Vitals: Temp Pulse Resp BP Pulse Ox 99.3 F 102 H 41 H 145/79 98 04/16/19 08:00 04/16/19 10:00 04/16/19 10:00 04/16/19 10:00 04/16/19 10:00 General appearance: Present: obese, disheveled, other ([place], somnolent and lethargic) - EENT Eyes: Present: PERRL, EOM intact ENT: hearing intact, clear oral mucosa, dentition normal - Neck Neck: Present: supple, normal ROM - Respiratory Respiratory effort: normal Respiratory: bilateral: CTA - Cardiovascular Rhythm: regular Heart Sounds: Present: S1 & S2. Absent: gallop, rub - Extremities Extremities: no ischemia, No edema, Full ROM - Abdominal General gastrointestinal: soft, non-tender, non-distended, normal bowel sounds - Integumentary Integumentary: Present: clear, warm, dry - Neurologic Neurologic: CNII-XII intact, moves all extremities Results - Labs CBC & Chem 7: 04/16/19 05:07 04/16/19 05:07 Labs: Laboratory Last Values WBC 12.6 K/mm3 (4.5-11.0) H 04/16/19 05:07 RBC 3.12 M/mm3 (3.65-5.03) L 04/16/19 05:07 Hgb 9.0 gm/dl (11.8-15.2) L 04/16/19 05:07 Hct 28.2 % (35.5-45.6) L 04/16/19 05:07 MCV 90 fl (84-94) 04/16/19 05:07 MCH 29 pg (28-32) 04/16/19 05:07 MCHC 32 % (32-34) 04/16/19 05:07 RDW 16.6 % (13.2-15.2) H 04/16/19 05:07 Plt Count 189 K/mm3 (140-440) 04/16/19 05:07 Lymph % (Auto) 10.3 % (13.4-35.0) L 04/16/19 05:07 [place] % (Auto) 9.8 % (0.0-7.3) H 04/16/19 05:07 Eos % (Auto) 0.8 % (0.0-4.3) 04/16/19 05:07 Baso % (Auto) 0.9 % (0.0-1.8) 04/16/19 05:07 Lymph # 1.3 K/mm3 (1.2-5.4) 04/16/19 05:07 [place] # 1.2 K/mm3 (0.0-0.8) H 04/16/19 05:07 Eos # 0.1 K/mm3 (0.0-0.4) 04/16/19 05:07 Baso # 0.1 K/mm3 (0.0-0.1) 04/16/19 05:07 Add Manual Diff Complete 04/11/19 04:16 Total Counted 100 04/11/19 04:16 Seg Neutrophils % 78.2 % (40.0-70.0) H 04/16/19 05:07 Seg Neuts % (Manual) 71.0 % (40.0-70.0) H 04/11/19 04:16 Band Neutrophils % 1.0 % 04/11/19 04:16 Lymphocytes % (Manual) 17.0 % (13.4-35.0) 04/11/19 04:16 Reactive Lymphs % (Man) 0 % 04/11/19 04:16 Monocytes % (Manual) 8.0 % (0.0-7.3) H 04/11/19 04:16 Eosinophils % (Manual) 2.0 % (0.0-4.3) 04/11/19 04:16 Basophils % (Manual) 1.0 % (0.0-1.8) 04/11/19 04:16 Metamyelocytes % 0 % 04/11/19 04:16 Myelocytes % 0 % 04/11/19 04:16 Promyelocytes % 0 % 04/11/19 04:16 Blast Cells % 0 % 04/11/19 04:16 Nucleated RBC % Not Reportable 04/11/19 04:16 Seg Neutrophils # 9.9 K/mm3 (1.8-7.7) H 04/16/19 05:07 Seg Neutrophils # Man 8.2 K/mm3 (1.8-7.7) H 04/11/19 04:16 Band Neutrophils # 0.1 K/mm3 04/11/19 04:16 Lymphocytes # (Manual) 2.0 K/mm3 (1.2-5.4) 04/11/19 04:16 Abs React Lymphs (Man) 0.0 K/mm3 04/11/19 04:16 Monocytes # (Manual) 0.9 K/mm3 (0.0-0.8) H 04/11/19 04:16 Eosinophils # (Manual) 0.2 K/mm3 (0.0-0.4) 04/11/19 04:16 Basophils # (Manual) 0.1 K/mm3 (0.0-0.1) 04/11/19 04:16 Metamyelocytes # 0.0 K/mm3 04/11/19 04:16 Myelocytes # 0.0 K/mm3 04/11/19 04:16 Promyelocytes # 0.0 K/mm3 04/11/19 04:16 Blast Cells # 0.0 K/mm3 04/11/19 04:16 WBC Morphology Not Reportable 04/11/19 04:16 Hypersegmented Neuts Not Reportable 04/11/19 04:16 Hyposegmented Neuts Not Reportable 04/11/19 04:16 Hypogranular Neuts Not Reportable 04/11/19 04:16 Smudge Cells Not Reportable 04/11/19 04:16 Toxic Granulation Not Reportable 04/11/19 04:16 Toxic Vacuolation Not Reportable 04/11/19 04:16 Dohle Bodies Not Reportable 04/11/19 04:16 Pelger-Huet Anomaly Not Reportable 04/11/19 04:16 Joyce Rods Not Reportable 04/11/19 04:16 Platelet Estimate Consistent w auto 04/11/19 04:16 Clumped Platelets Not Reportable 04/11/19 04:16 Plt Clumps, EDTA Not Reportable 04/11/19 04:16 Large Platelets Not Reportable 04/11/19 04:16 Giant Platelets Not Reportable 04/11/19 04:16 Platelet Satelliting Not Reportable 04/11/19 04:16 Plt Morphology Comment Not Reportable 04/11/19 04:16 RBC Morphology Not Reportable 04/11/19 04:16 Dimorphic RBCs Not Reportable 04/11/19 04:16 Polychromasia Not Reportable 04/11/19 04:16 Hypochromasia Not Reportable 04/11/19 04:16 Poikilocytosis Not Reportable 04/11/19 04:16 Anisocytosis Rare 04/11/19 04:16 Microcytosis Rare 04/11/19 04:16 Macrocytosis Not Reportable 04/11/19 04:16 Spherocytes Not Reportable 04/11/19 04:16 Pappenheimer Bodies Not Reportable 04/11/19 04:16 Sickle Cells Not Reportable 04/11/19 04:16 Target Cells Not Reportable 04/11/19 04:16 Tear Drop Cells Not Reportable 04/11/19 04:16 Ovalocytes Not Reportable 04/11/19 04:16 Stomatocytes Few 03/26/19 Unknown Helmet Cells Not Reportable 04/11/19 04:16 [place] Bodies Not Reportable 04/11/19 04:16 [place] Rings Not Reportable 04/11/19 04:16 [place] Cells Not Reportable 04/11/19 04:16 Bite Cells Not Reportable 04/11/19 04:16 Crenated Cell Not Reportable 04/11/19 04:16 Elliptocytes Not Reportable 04/11/19 04:16 Acanthocytes (Spur) Not Reportable 04/11/19 04:16 Rouleaux Not Reportable 04/11/19 04:16 Hemoglobin C Crystals Not Reportable 04/11/19 04:16 Schistocytes Not Reportable 04/11/19 04:16 Malaria parasites Not Reportable 04/11/19 04:16 Phil Bodies Not Reportable 04/11/19 04:16 Hem Pathologist Commnt No 04/11/19 04:16 PT 15.3 Sec. (12.2-14.9) H 03/29/19 11:48 INR 1.24 (0.87-1.13) H 03/29/19 11:48 APTT 26.6 Sec. (24.2-36.6) 03/28/19 12:00 Fibrinogen 226 mg/dl (211-480) 03/28/19 12:00 D-Dimer 4845.98 ng/mlDDU (0-234) H 03/28/19 12:00 Heparin Anti-Xa Level 0.23 U.I./ml (0.3-0.7) L 03/28/19 05:13 POC ABG pH 7.401 (7.35-7.45) 04/07/19 12:57 ABG pH 7.388 pH Units (7.350-7.450) 04/06/19 05:20 POC ABG pCO2 41.5 (35-45) 04/07/19 12:57 ABG pCO2 38.5 mm Hg 04/06/19 05:20 POC ABG pO2 107 (80-105) H 04/07/19 12:57 ABG pO2 104.0 mm Hg (80.0-90.0) H 04/06/19 05:20 POC ABG HCO3 25.7 (22-26 mml/L) 04/07/19 12:57 ABG HCO3 22.6 mmol/L (20.0-26.0) 04/06/19 05:20 POC ABG Total CO2 27 (23-27mmol/L) 04/07/19 12:57 POC ABG O2 Sat 98 04/07/19 12:57 ABG O2 Saturation 97.8 % (95.0-99.0) 04/06/19 05:20 ABG O2 Content 10.0 (0.0-44) 04/06/19 05:20 POC ABG Base Excess 1 ((-2) - (+3)mmol/L) 04/07/19 12:57 ABG Base Excess -2.1 mmol/L (-2.0-3.0) L 04/06/19 05:20 ABG Hemoglobin 7.3 gm/dl (14.0-18.0) L 04/06/19 05:20 ABG Carboxyhemoglobin 1.7 % (0.0-5.0) 04/06/19 05:20 ABG Methemoglobin 0.6 % (0.0-1.5) 04/06/19 05:20 Oxyhemoglobin 95.5 % (95.0-99.0) 04/06/19 05:20 FiO2 30 % 04/07/19 12:57 Sodium 147 mmol/L (137-145) H 04/16/19 05:07 Potassium 3.5 mmol/L (3.6-5.0) L 04/16/19 05:07 Chloride 101.6 mmol/L (98-107) 04/16/19 05:07 Carbon Dioxide 30 mmol/L (22-30) 04/16/19 05:07 Anion Gap 19 mmol/L 04/16/19 05:07 BUN 54 mg/dL (9-20) H 04/16/19 05:07 Creatinine 3.8 mg/dL (0.8-1.5) H 04/16/19 05:07 Estimated GFR 17 ml/min 04/16/19 05:07 BUN/Creatinine Ratio 14 % 04/16/19 05:07 Glucose 102 mg/dL (75-100) H 04/16/19 05:07 POC Glucose 105 (70-105) 04/16/19 05:34 Lactic Acid 1.90 mmol/L (0.7-2.0) 03/21/19 21:31 Calcium 11.7 mg/dL (8.4-10.2) H 04/16/19 05:07 Ionized Calcium 3.7 mg/dL (4.8-5.6) L 03/30/19 12:09 Phosphorus 5.00 mg/dL (2.5-4.5) H 04/15/19 05:11 Magnesium 1.90 mg/dL (1.7-2.3) 03/31/19 15:07 Iron 26 ug/dL (49-181) L 04/02/19 05:03 TIBC 138 mcg/dL (250-450) L 04/02/19 05:03 Ferritin 607.0 ng/mL (13.0-400.0) H 04/02/19 05:03 Total Bilirubin 0.50 mg/dL (0.1-1.2) 04/13/19 05:00 Direct Bilirubin 0.4 mg/dL (0-0.2) H 03/31/19 08:20 Indirect Bilirubin 0.1 mg/dL 03/31/19 08:20 AST 21 units/L (5-40) 04/13/19 05:00 ALT 13 units/L (7-56) 04/13/19 05:00 Alkaline Phosphatase 52 units/L (35-129) 04/13/19 05:00 Total Creatine Kinase 62 units/L (55-170) 04/07/19 05:40 CK-MB (CK-2) 54.3 ng/mL (0.0-4.0) H 03/17/19 07:16 CK-MB (CK-2) Rel Index 0.0 (0-4) 03/17/19 07:16 Troponin T 0.058 ng/mL (0.00-0.029) H 03/17/19 07:16 C-Reactive Protein 13.30 mg/dL (0.00-1.30) H 03/20/19 14:45 Total Protein 5.8 g/dL (6.3-8.2) L 04/13/19 05:00 Albumin 2.5 g/dL (3.9-5) L 04/13/19 05:00 Albumin/Globulin Ratio 0.8 % 04/13/19 05:00 Triglycerides 309 mg/dL (2-149) H 03/29/19 06:22 Cholesterol 88 mg/dL (50-199) 03/16/19 22:32 LDL Cholesterol Direct 10 mg/dL (50-130) L 03/16/19 22:32 HDL Cholesterol 7 mg/dL (40-59) L 03/16/19 22:32 Cholesterol/HDL Ratio 12.57 % 03/16/19 22:32 Vitamin B12 903.0 pg/mL (211-911) 04/02/19 05:03 Folate 8.05 ng/mL (7.3-26.0) 04/02/19 05:03 Procalcitonin 25.42 ng/mL (<0.15) 03/27/19 19:21 TSH 2.200 mlU/mL (0.270-4.200) 03/16/19 17:05 Free T4 0.72 ng/dL (0.76-1.46) L 03/16/19 17:05 PTH Intact 329.9 pg/mL (15-65) H 03/25/19 05:00 Urine Color Yellow (Yellow) 04/15/19 22:11 Urine Turbidity Clear (Clear) 04/15/19 22:11 Urine pH 6.0 (5.0-7.0) 04/15/19 22:11 Ur Specific [place] 1.010 (1.003-1.030) 04/15/19 22:11 Urine Protein 30 mg/dl mg/dL (Negative) 04/15/19 22:11 Urine Glucose (UA) Neg mg/dL (Negative) 04/15/19 22:11 Urine Ketones Neg mg/dL (Negative) 04/15/19 22:11 Urine Blood Mod (Negative) 04/15/19 22:11 Urine Nitrite Neg (Negative) 04/15/19 22:11 Urine Bilirubin Neg (Negative) 04/15/19 22:11 Urine Urobilinogen < 2.0 mg/dL (<2.0) 04/15/19 22:11 Ur Leukocyte Esterase Neg (Negative) 04/15/19 22:11 Urine WBC (Auto) 4.0 /HPF (0.0-6.0) 04/15/19 22:11 Urine RBC (Auto) 2.0 /HPF (0.0-6.0) 04/15/19 22:11 U Epithel Cells (Auto) < 1.0 /HPF (0-13.0) 04/15/19 22:11 Amorphous Crystals 1+ 04/05/19 16:50 Urine Mucus Few /HPF 03/17/19 16:05 Urine Sperm 2+ /HPF (ROAD CROSSING GUARD) 03/17/19 16:05 Urine Eosinophils None seen (None Seen) 03/17/19 16:05 Urine Creatinine 106.6 mg/dL (0.1-20.0) H 03/17/19 16:05 Urine Sodium 95 mmol/L 03/17/19 16:05 Vancomycin Trough 11.5 ug/mL (5.0-20.0) 03/18/19 13:19 Random Vancomycin 10.8 ug/mL (0-40.0) 04/14/19 03:55 Salicylates < 0.3 mg/dL (2.8-20.0) L 03/16/19 17:05 Urine Opiates Screen Presumptive negative 03/17/19 16:05 Urine Methadone Screen Presumptive negative 03/17/19 16:05 Acetaminophen < 5.0 ug/mL (10.0-30.0) L 03/16/19 17:05 Ur Barbiturates Screen Presumptive negative 03/17/19 16:05 Ur Phencyclidine Scrn Presumptive negative 03/17/19 16:05 Ur Amphetamines Screen Presumptive negative 03/17/19 16:05 U Benzodiazepines Scrn Presumptive positive 03/17/19 16:05 Urine Cocaine Screen Presumptive negative 03/17/19 16:05 U Marijuana (THC) Screen Presumptive negative 03/17/19 16:05 Drugs of Abuse Note Disclamer 03/17/19 16:05 Plasma/Serum Alcohol < 0.01 % (0-0.07) 03/16/19 17:05 Hepatitis A IgM Ab Non-reactive (NonReactive) 03/18/19 13:18 Hep Bs Antigen Non-reactive (Negative) 03/18/19 13:18 Hep B Core IgM Ab Non-reactive (NonReactive) 03/18/19 13:18 Hepatitis C Antibody Non-reactive (NonReactive) 03/18/19 13:18 HIV 1&2 Antibody Rapid Non react (Non React) 03/17/19 11:52 HIV P24 Antigen Non react (Non React) 03/17/19 11:52 Influenza A (Rapid) Negative (Negative) 03/17/19 17:00 Influenza B (Rapid) Negative (Negative) 03/17/19 17:00 Group A Strep Rapid Negative (Negative) 03/17/19 17:00 Miscellaneous Test Flexitest 1 03/21/19 12:00 Blood Type A POSITIVE 04/02/19 16:34 Antibody Screen Negative 04/02/19 16:34 Crossmatch See Detail 04/02/19 16:34 Active Medications - Current Medications Current Medications: Generic Name Dose Route Start Last Admin Trade Name Freq PRN Reason Stop Dose Admin Acetaminophen 650 mg 04/02/19 23:26 04/16/19 05:01 Tylenol PO 650 mg Q4H PRN Administration Pain, Mild (1-3),temp>100.5 Albuterol 2.5 mg 03/29/19 13:08 Proventil IH Q4HRT PRN Shortness Of Breath Amiodarone HCl 200 mg 04/15/19 22:00 04/16/19 09:29 Cordarone PO 200 mg BID PAOLO Administration Bacitracin 1 applic 04/09/19 02:43 04/11/19 00:20 Antibiotic Oint TP 1 applic PRN PRN Administration upper lip sore/open Dextrose 50 gm 03/19/19 18:39 03/26/19 23:26 D50w (25gm) Vial IV 50 gm PRN PRN Administration Hypoglycemia Epoetin Jet 20,000 unit 03/31/19 10:15 04/13/19 17:41 Procrit SUB-Q 20,000 unit NEYMAR PRN Administration hemodialysis Hydralazine HCl 20 mg 04/14/19 03:00 04/14/19 03:11 Apresoline IV 20 mg Q4H PRN Administration hypertemsion Hydrophilic Ointment 1 applic 03/16/19 15:50 Vaseline Lip Therapy TP Q2HR PRN Dry Lips Cefepime HCl 2 gm in 100 mls @ 200 mls/hr 04/11/19 18:00 04/15/19 18:55 Maxipime/Ns 2 Gm/100 Ml IV 200 mls/hr QPM PAOLO Administration Protocol Sodium Chloride 100 mls @ 999 mls/hr 04/13/19 08:30 Nacl 0.9% IV NEYMAR PRN Hypotension Levofloxacin/Dextrose 500 mg in 100 mls @ 100 mls/hr 04/17/19 10:00 Levaquin 500mg/100ml IV Q48HR PAOLO Lansoprazole 30 mg 04/11/19 10:00 04/16/19 09:30 Prevacid Solutab FEEDTUBE 30 mg BID PAOLO Administration Metoprolol Tartrate 25 mg 04/15/19 11:00 04/16/19 09:29 Lopressor PO 25 mg BID PAOLO Administration Multi-Ingred Cream/Lotion/Oil/Oint 1 applic 03/16/19 15:50 03/19/19 20:10 Artificial Tears Ophth Oint OU 1 applic Q4HR PRN Administration Dry Eye(s) Ondansetron HCl 4 mg 03/16/19 22:21 04/14/19 20:10 Zofran IV 4 mg Q8H PRN Administration Nausea And Vomiting Nutrition/Malnutrition Assess - Dietary Evaluation Nutrition/Malnutrition Findings: Nutrition Notes Start: 03/17/19 14:22 Freq: Status: Active Protocol: Document 04/13/19 10:52 RM (Rec: 04/13/19 10:58 RM [email or web address]) Nutrition Notes Initial or Follow up Reassessment Current Diagnosis Acute Kidney Injury,Heart Failure Other Pertinent Diagnosis on HD, Septic shock,Multiple organ failure, encephalopathy, Aspiration pneu Current Diet Nepro at 50 ml/hr Labs/Tests Na 142 BUN 42 Creat 4.6 K 3.5 Pertinent Medications Zofran, Bumetanide Height 6 ft Weight 148.5 kg [place] Body Weight (kg) 80.90 BMI 44.4 Subjective/Other Information Observed Nepro infusing at goal rate. Per nurse pt is tolerating TF. Percent of energy/protein needs met: 100%/100% Burn Absent Trauma Absent Minimum of two criteria No #1 Nutrition Diagnosis Inadequate oral intake Diagnosis Progress(for reassessment Continues documentation) Is patient on ventilator? No Is Patient Ambulatory and/or Out of Bed No REE-([facility]-confined to bed) 2892.144 Kcal/Kg value to use for calculation 14 Approximate Energy Requirements Using 2079 kcal/Kg Calculation Used for Recommendations Kcal/kg Additional Notes Protein: 97-121g (1.2-1.5g/kg, IBW) Fluids:1 ml/kcal or per MD Nutrition Intervention Nutrition Support: Nepro 1.8 at 50 ml/hr Water flush 150 ml q4hr or per MD Kcal 2,160 Protein (gm) 97 Fluid (mL) 872 Goal #1 TF tolerance Goal #2 Continue to meet at least 75% of calorie and protein needs via TF Anticipated Discharge Needs: Unable to determine at this time Follow-Up By: 04/20/19 Additional Comments Follow for TF tolerance
--- NOTE | 2019-04-16 11:15 | Progress Note ---
Assessment and Plan Cont present cardiac management. Consider PEG placement per primary team. No systemic AC regarding AFib in setting of anemia, thrombocytopenia, GI bleed. Can consider ischemic evaluation (stress test) once medically stabilized. The patient has been seen in conjunction with Dr. KONRAD Nunez who agrees with the assessment and plan of care. - Patient Problems (1) Cardiopulmonary arrest Current Visit: Yes Status: Acute (2) Acute respiratory failure Current Visit: Yes Status: Acute Qualifiers: Respiratory failure complication: hypoxia Qualified Code(s): J96.01 - Acute respiratory failure with hypoxia (3) Paroxysmal atrial fibrillation with RVR Current Visit: Yes Status: Acute (4) SVT (supraventricular tachycardia) Current Visit: Yes Status: Acute (5) Torsades de pointes Current Visit: Yes Status: Acute (6) Ventricular tachycardia Current Visit: Yes Status: Acute (7) Encephalopathy Current Visit: Yes Status: Acute (8) Septic shock Current Visit: Yes Status: Acute (9) Aspiration pneumonia Current Visit: Yes Status: Acute Qualifiers: Aspiration pneumonia type: unspecified (10) Meningitis Current Visit: Yes Status: Suspected (11) Cellulitis Current Visit: Yes Status: Acute (12) Acute renal failure Current Visit: Yes Status: Acute Qualifiers: Acute renal failure type: with acute tubular necrosis Qualified Code(s): N17.0 - Acute kidney failure with tubular necrosis (13) GI bleed Current Visit: Yes Status: Acute (14) Anemia Current Visit: Yes Status: Acute (15) Thrombocytopenia Current Visit: Yes Status: Resolved (16) DVT (deep venous thrombosis) Current Visit: Yes Status: Acute Subjective Date of service: 04/16/19 Principal diagnosis: anemia - DVT IJ Interval history: pt resting in bed, awake and alert. remains in SR and parox AFib with RVR. Objective Last Vital Signs Temp 99.3 F 04/16/19 08:00 Pulse 102 H 04/16/19 10:00 Resp 41 H 04/16/19 10:00 BP 145/79 04/16/19 10:00 Pulse Ox 98 04/16/19 10:00 - Physical Examination General: No Apparent Distress HEENT: Positive: EOMI, Normocephaly, Mucus Membranes Moist Neck: Positive: neck supple, trachea midline Cardiac: Positive: irregularly irregular, S1/S2 Lungs: Positive: Decreased Breath Sounds Neuro: Positive: Grossly Intact, Other (awake, alert and oriented) Abdomen: Positive: Soft, Active Bowel Sounds. Negative: Tender /Rectal: Other (deferred) Skin: Positive: Clear. Negative: Rash Musculoskeletal: Normal Range of Motion Extremities: Present: normal. Absent: edema - Labs and Meds CBC 04/16/19 Range/Units 05:07 WBC 12.6 H (4.5-11.0) K/mm3 RBC 3.12 L (3.65-5.03) M/mm3 Hgb 9.0 L (11.8-15.2) gm/dl Hct 28.2 L (35.5-45.6) % Plt Count 189 (140-440) K/mm3 Lymph # 1.3 (1.2-5.4) K/mm3 [place] # 1.2 H (0.0-0.8) K/mm3 Eos # 0.1 (0.0-0.4) K/mm3 Baso # 0.1 (0.0-0.1) K/mm3 Comprehensive Metabolic Panel 04/16/19 Range/Units 05:07 Sodium 147 H (137-145) mmol/L Potassium 3.5 L (3.6-5.0) mmol/L Chloride 101.6 (98-107) mmol/L Carbon Dioxide 30 (22-30) mmol/L BUN 54 H (9-20) mg/dL Creatinine 3.8 H (0.8-1.5) mg/dL Glucose 102 H (75-100) mg/dL Calcium 11.7 H (8.4-10.2) mg/dL - Imaging and Cardiology Echo: report reviewed ( EF 40-45%, impaired relaxation. ) - EKG Sinus rhythms and dysrhythmias: sinus rhythm - Allied health notes Allied health notes reviewed: nursing
--- NOTE | 2019-04-16 11:48 | Progress Note ---
Assessment and Plan Cultures: 03/16/2019 sputum: salivary contamination 03/16/2019 Blood culture: no growth 03/17/2019 Urine culture no growth 03/17/2019 throat culture: no growth 03/26/2019 Blood culture: no growth 03/27/2019 Blood culture negative. 04/04/2019 blood culture NGTD 04/05/2019 urine culture: no growth 04/11/2019 blood culture: no growth 04/15/2019 blood culture: in process Assessment: 43y/o male with possible psych history admitted on 03/16/2019 with: 1) Septic shock: Resolved. Fever after right IJ exchanged overwire on 03/27, fever is better; leukocytosis resolved. Fever source is unclear - suspect IJ DV T ?thrombophlebitis, other ?NMS ?sinusitis, ?drug fever. Brain MRI showed no acute intracranial abnormality, mild nonspecific chronic white matter changes, fluid throughout the sinuses and mastoid air cells. Venous US + right IJ DVT. Completed empiric Cefepime x 10 days on 04/06/2019. Initial septic shock - Possible Infectious etiology v/s possibility of Neuroleptic Malignant Syndrome given psych history, high fever of 105F and extremely elevated CPK of >100K. Unclear if he was on any psych med. From ID standpoint, we will continue broad coverage for acute bacterial meningitis, tick borne illness, aspiration pneumonia. Blood culture negative UA with mild pyuria. HIV rapid negative. Strep A rapid ag negative. No obvious infectious source identified yet. 2) Low grade fever with elevated WBC: ?drug fever. blood cultures have remained negative. CXR with no obvious pneumonia. 3) Probable aspiration pneumonia, fluid overload, acute resp failure: on oxygen. Previously completed abx. 4) Acute encephalopathy: improving, awake, alert, calm. 5) Acute renal failure: renally dosing all abx, now on iHD. 6) Elevated LFTs/shock liver: resolved. 7) Thrombocytopenia: platelet normalized. 8) Rhabdomyolysis: CK normalized. 9) Multiple superficial wounds: do not appear infected. Continue wound care. Recommendations: ?drug fever, will d/c abx and monitor clinically LANDY, C3, C4, CRP ordered f/u blood cultures from 04/15/2019 Continue wound care Katherine Elizabeth MD, FACP [facility] ([facility] C: [phone] O: [phone] F: [phone] Subjective Date of service: 04/16/19 Principal diagnosis: anemia - DVT IJ Interval history: Fevers +. Sitting up in chair, participating with therapy. Answering questions. Denies any pain. Wants to drink water Objective - Exam Narrative Exam: Physical Exam: Constitutional: awake, alert, answering questions, sitting up in bed Head, Ears, Nose: Normocephalic, atraumatic. External ears, nose normal Eyes: Conjunctivae/corneas clear. No icterus. No ptosis. Neck: Supple, no meningeal signs. R IJ HD cath + Cardiovascular: S1, S2 normal. Respiratory: few rhonchi b/l GI: Soft, non-tender; bowel sounds normal. No peritoneal signs Musculoskeletal: anasarca+ with pedal and scrotal edema + Skin: superficial wounds with weeping, dressings + Hem/Lymphatic: No palpable cervical or supraclavicular nodes. No lymphangitis Psych: awake, no agitation Neurological: awake, alert, answering questions - Constitutional Vitals: Vital Signs Temp Pulse Resp BP Pulse Ox 99.3 F 102 H 41 H 145/79 98 04/16/19 08:00 04/16/19 10:00 04/16/19 10:00 04/16/19 10:00 04/16/19 10:00 Temperature -Last 24 Hours Temperature 99.3 F Temperature 102.6 F Temperature 101.6 F Temperature 100.9 F Temperature 100.9 F Temperature 99.7 F Temperature 100.1 F Temperature 101.3 F - Labs CBC & Chem 7: 04/16/19 05:07 04/16/19 05:07 Labs: Abnormal lab results 04/15/19 04/16/19 04/16/19 Range/Units 18:03 05:07 05:07 WBC 12.6 H (4.5-11.0) K/mm3 RBC 3.12 L (3.65-5.03) M/mm3 Hgb 9.0 L (11.8-15.2) gm/dl Hct 28.2 L (35.5-45.6) % RDW 16.6 H (13.2-15.2) % Lymph % (Auto) 10.3 L (13.4-35.0) % [place] % (Auto) 9.8 H (0.0-7.3) % [place] # 1.2 H (0.0-0.8) K/mm3 Seg Neutrophils % 78.2 H (40.0-70.0) % Seg Neutrophils # 9.9 H (1.8-7.7) K/mm3 Sodium 147 H (137-145) mmol/L Potassium 3.5 L (3.6-5.0) mmol/L BUN 54 H (9-20) mg/dL Creatinine 3.8 H (0.8-1.5) mg/dL Glucose 102 H (75-100) mg/dL POC Glucose 121 H (70-105) Calcium 11.7 H (8.4-10.2) mg/dL - Imaging and cardiology Chest x-ray: report reviewed, image reviewed (bilateral pulmonary edema)
--- NOTE | 2019-04-16 13:53 | Progress Note ---
Assessment and Plan Patient neurological status remains the same. Patient is not following commands. Presently is resting on 2L O2. O2 saturation is 94%. Patient is tachycardic but does not have acute respiratory distress. Patient running a low grade fever and has mild leukocytosis. Antibiotics per infectious disease consultants. - Patient Problems (1) Acute respiratory failure Current Visit: Yes Status: Acute Qualifiers: Respiratory failure complication: hypoxia Qualified Code(s): J96.01 - Acute respiratory failure with hypoxia Plan to address problem: Patient on 2L O2. BiPAP standby in the room. Albuterol/atrovent aerosol treatments q 6 hours. Continue Prevacid. Recommend DVT prophylaxis. SCDs (2) Altered mental status Current Visit: Yes Status: Acute Qualifiers: Altered mental status type: unspecified Qualified Code(s): R41.82 - Altered mental status, unspecified Plan to address problem: Management as per primary care and neurology. (3) Atrial fibrillation with RVR Current Visit: Yes Status: Acute Plan to address problem: Management as per cardiology. (4) Cardiopulmonary arrest Current Visit: Yes Status: Acute Plan to address problem: Patient resucitated. Presently on 2L O2. (5) Acute renal failure Current Visit: Yes Status: Acute Qualifiers: Acute renal failure type: with acute tubular necrosis Qualified Code(s): N17.0 - Acute kidney failure with tubular necrosis Plan to address problem: Management as per nephrology. (6) Aspiration pneumonia Current Visit: Yes Status: Acute Qualifiers: Aspiration pneumonia type: unspecified Plan to address problem: Patient treated with cepepime. (7) GI bleed Current Visit: Yes Status: Acute Plan to address problem: Management as per gastroenterology. Subjective Date of service: 04/16/19 Principal diagnosis: anemia - DVT IJ Interval history: Patient neurological status remains the same. Patient is not following commands. Presently is resting on 2L O2. O2 saturation is 94%. Patient is tachycardic but does not have acute respiratory distress. Patient running a low grade fever and has mild leukocytosis. Antibiotics per infectious disease consultants. Objective Vital Signs - 12hr 04/16/19 04/16/19 04/16/19 02:01 03:01 04:00 Temperature 102.6 F H Pulse Rate 92 H 95 H 97 H Pulse Rate [ 97 H From Monitor] Respiratory 17 20 34 H Rate Blood Pressure 153/74 159/83 159/81 O2 Sat by Pulse 99 98 97 Oximetry 04/16/19 04/16/19 04/16/19 05:00 06:01 07:01 Temperature Pulse Rate 91 H 146 H 124 H Pulse Rate [ From Monitor] Respiratory 28 H 24 37 H Rate Blood Pressure 159/81 140/73 140/73 O2 Sat by Pulse 97 98 98 Oximetry 04/16/19 04/16/19 04/16/19 08:00 09:00 09:29 Temperature 99.3 F Pulse Rate 158 H 106 H 107 H Pulse Rate [ 107 H From Monitor] Respiratory 41 H 38 H Rate Blood Pressure 127/88 129/84 129/84 O2 Sat by Pulse 98 97 Oximetry 04/16/19 04/16/19 04/16/19 10:00 11:01 12:00 Temperature Pulse Rate 102 H 91 H 91 H Pulse Rate [ 92 H From Monitor] Respiratory 41 H 16 19 Rate Blood Pressure 145/79 133/68 O2 Sat by Pulse 98 96 98 Oximetry 04/16/19 12:01 Temperature Pulse Rate 91 H Pulse Rate [ From Monitor] Respiratory 38 H Rate Blood Pressure 120/77 O2 Sat by Pulse 95 Oximetry Constitutional: no acute distress, other (Patient is sleepy and not following commands.) Eyes: icteric ENT: oropharynx moist, other (extubated) Neck: supple, no lymphadenopathy, no JVD, other (large neck circumference) Effort: mildly labored Ascultation: Bilateral: diminished breath sounds, rales, rhonchi (scant) Percussion: Bilateral: not dull Cardiovascular: irregular rhythm, other ( S1,S2) Gastrointestinal: hypoactive bowel sounds, soft, non-tender, non-distended, other (obese) Integumentary: normal, other (blisters with some weeping over the extremities) Extremities: no cyanosis, pink and warm, pulses normal, no ischemia or petechiae Neurologic: normal mental status, non-focal exam (grossly), pupils equal and round, CN II-XII normal, other (very weak) Psychiatric: mood appropriate, affect normal CBC and BMP: 04/16/19 05:07 04/16/19 05:07 ABG, PT/INR, D-dimer: ABG POC ABG pH 7.401 (7.35-7.45) 04/07/19 12:57 ABG pH 7.388 pH Units (7.350-7.450) 04/06/19 05:20 POC ABG pCO2 41.5 (35-45) 04/07/19 12:57 ABG pCO2 38.5 mm Hg 04/06/19 05:20 POC ABG pO2 107 (80-105) H 04/07/19 12:57 ABG pO2 104.0 mm Hg (80.0-90.0) H 04/06/19 05:20 POC ABG HCO3 25.7 (22-26 mml/L) 04/07/19 12:57 POC ABG Total CO2 27 (23-27mmol/L) 04/07/19 12:57 POC ABG O2 Sat 98 04/07/19 12:57 ABG O2 Saturation 97.8 % (95.0-99.0) 04/06/19 05:20 PT/INR, D-dimer PT 15.3 Sec. (12.2-14.9) H 03/29/19 11:48 INR 1.24 (0.87-1.13) H 03/29/19 11:48 D-Dimer 4845.98 ng/mlDDU (0-234) H 03/28/19 12:00 Abnormal lab findings: Abnormal Labs 03/16/19 03/16/19 03/16/19 15:32 16:03 16:05 WBC 27.0 H RBC 5.55 H Hgb 15.7 H Hct 47.1 H MCV RDW Plt Count 75 L Lymph % (Auto) [place] % (Auto) Lymph # [place] # Seg Neutrophils % Seg Neuts % (Manual) 85.0 H Lymphocytes % (Manual) 2.0 L Monocytes % (Manual) Nucleated RBC % Seg Neutrophils # Seg Neutrophils # Man 23.0 H Lymphocytes # (Manual) 0.5 L Monocytes # (Manual) PT INR D-Dimer Heparin Anti-Xa Level POC ABG pH ABG pH POC ABG pCO2 POC ABG pO2 ABG pO2 ABG HCO3 ABG O2 Saturation ABG Base Excess ABG Hemoglobin Oxyhemoglobin Sodium 127 L Potassium Chloride 87.8 L Carbon Dioxide 17 L BUN 49 H Creatinine 5.8 H Glucose 150 H POC Glucose 118 H Lactic Acid Calcium 6.6 L Ionized Calcium Phosphorus Magnesium 1.10 L Iron TIBC Ferritin Total Bilirubin Direct Bilirubin AST ALT Alkaline Phosphatase Total Creatine Kinase 42206 H CK-MB (CK-2) Troponin T C-Reactive Protein Total Protein Albumin Triglycerides LDL Cholesterol Direct HDL Cholesterol Free T4 PTH Intact Urine WBC (Auto) Urine Creatinine Salicylates Acetaminophen Crossmatch 03/16/19 03/16/19 03/16/19 16:59 17:05 17:05 WBC RBC Hgb Hct MCV RDW Plt Count Lymph % (Auto) [place] % (Auto) Lymph # [place] # Seg Neutrophils % Seg Neuts % (Manual) Lymphocytes % (Manual) Monocytes % (Manual) Nucleated RBC % Seg Neutrophils # Seg Neutrophils # Man Lymphocytes # (Manual) Monocytes # (Manual) PT INR D-Dimer Heparin Anti-Xa Level POC ABG pH 7.297 L ABG pH POC ABG pCO2 33.0 L POC ABG pO2 ABG pO2 ABG HCO3 ABG O2 Saturation ABG Base Excess ABG Hemoglobin Oxyhemoglobin Sodium Potassium Chloride Carbon Dioxide BUN Creatinine Glucose POC Glucose Lactic Acid Calcium Ionized Calcium Phosphorus Magnesium Iron TIBC Ferritin Total Bilirubin Direct Bilirubin AST ALT Alkaline Phosphatase Total Creatine Kinase 84795 H CK-MB (CK-2) 83.1 H Troponin T C-Reactive Protein Total Protein Albumin Triglycerides LDL Cholesterol Direct HDL Cholesterol Free T4 0.72 L PTH Intact Urine WBC (Auto) Urine Creatinine Salicylates Acetaminophen Crossmatch 03/16/19 03/16/19 03/16/19 17:05 17:05 17:05 WBC RBC Hgb Hct MCV RDW Plt Count Lymph % (Auto) [place] % (Auto) Lymph # [place] # Seg Neutrophils % Seg Neuts % (Manual) Lymphocytes % (Manual) Monocytes % (Manual) Nucleated RBC % Seg Neutrophils # Seg Neutrophils # Man Lymphocytes # (Manual) Monocytes # (Manual) PT INR D-Dimer Heparin Anti-Xa Level POC ABG pH ABG pH POC ABG pCO2 POC ABG pO2 ABG pO2 ABG HCO3 ABG O2 Saturation ABG Base Excess ABG Hemoglobin Oxyhemoglobin Sodium Potassium Chloride Carbon Dioxide BUN Creatinine Glucose POC Glucose Lactic Acid 5.10 H* Calcium Ionized Calcium Phosphorus Magnesium Iron TIBC Ferritin Total Bilirubin Direct Bilirubin AST ALT Alkaline Phosphatase Total Creatine Kinase CK-MB (CK-2) Troponin T C-Reactive Protein Total Protein Albumin Triglycerides LDL Cholesterol Direct HDL Cholesterol Free T4 PTH Intact Urine WBC (Auto) Urine Creatinine Salicylates < 0.3 L Acetaminophen < 5.0 L Crossmatch 03/16/19 03/16/19 03/16/19 17:05 17:05 20:35 WBC RBC Hgb Hct MCV RDW Plt Count Lymph % (Auto) [place] % (Auto) Lymph # [place] # Seg Neutrophils % Seg Neuts % (Manual) Lymphocytes % (Manual) Monocytes % (Manual) Nucleated RBC % Seg Neutrophils # Seg Neutrophils # Man Lymphocytes # (Manual) Monocytes # (Manual) PT 15.9 H INR 1.30 H D-Dimer Heparin Anti-Xa Level POC ABG pH ABG pH POC ABG pCO2 POC ABG pO2 ABG pO2 ABG HCO3 ABG O2 Saturation ABG Base Excess ABG Hemoglobin Oxyhemoglobin Sodium Potassium Chloride Carbon Dioxide BUN Creatinine Glucose POC Glucose Lactic Acid 3.30 H* Calcium Ionized Calcium Phosphorus Magnesium Iron TIBC Ferritin Total Bilirubin 6.20 H Direct Bilirubin 5.9 H AST 800 H ALT 120 H Alkaline Phosphatase Total Creatine Kinase CK-MB (CK-2) Troponin T C-Reactive Protein Total Protein 4.4 L Albumin 2.4 L Triglycerides LDL Cholesterol Direct HDL Cholesterol Free T4 PTH Intact Urine WBC (Auto) Urine Creatinine Salicylates Acetaminophen Crossmatch 03/16/19 03/16/19 03/16/19 21:45 22:32 Unknown WBC RBC Hgb Hct MCV RDW Plt Count Lymph % (Auto) [place] % (Auto) Lymph # [place] # Seg Neutrophils % Seg Neuts % (Manual) Lymphocytes % (Manual) Monocytes % (Manual) Nucleated RBC % Seg Neutrophils # Seg Neutrophils # Man Lymphocytes # (Manual) Monocytes # (Manual) PT INR D-Dimer Heparin Anti-Xa Level POC ABG pH ABG pH POC ABG pCO2 POC ABG pO2 ABG pO2 ABG HCO3 ABG O2 Saturation ABG Base Excess ABG Hemoglobin Oxyhemoglobin Sodium Potassium Chloride Carbon Dioxide BUN Creatinine Glucose POC Glucose Lactic Acid 3.30 H* 3.00 H* Calcium Ionized Calcium Phosphorus Magnesium Iron TIBC Ferritin Total Bilirubin Direct Bilirubin AST ALT Alkaline Phosphatase Total Creatine Kinase CK-MB (CK-2) Troponin T 0.047 H D C-Reactive Protein Total Protein Albumin Triglycerides 395 H LDL Cholesterol Direct 10 L HDL Cholesterol 7 L Free T4 PTH Intact Urine WBC (Auto) Urine Creatinine Salicylates Acetaminophen Crossmatch 03/17/19 03/17/19 03/17/19 03:45 03:45 03:45 WBC RBC Hgb Hct MCV RDW Plt Count Lymph % (Auto) [place] % (Auto) Lymph # [place] # Seg Neutrophils % Seg Neuts % (Manual) Lymphocytes % (Manual) Monocytes % (Manual) Nucleated RBC % Seg Neutrophils # Seg Neutrophils # Man Lymphocytes # (Manual) Monocytes # (Manual) PT INR D-Dimer Heparin Anti-Xa Level POC ABG pH ABG pH POC ABG pCO2 POC ABG pO2 ABG pO2 ABG HCO3 ABG O2 Saturation ABG Base Excess ABG Hemoglobin Oxyhemoglobin Sodium 131 L Potassium Chloride 88.9 L Carbon Dioxide BUN 53 H Creatinine 7.1 H Glucose POC Glucose Lactic Acid 4.10 H* Calcium 5.4 L* D Ionized Calcium Phosphorus 7.30 H Magnesium 1.60 L Iron TIBC Ferritin Total Bilirubin 5.90 H Direct Bilirubin AST 801 H ALT 109 H Alkaline Phosphatase Total Creatine Kinase 74960 H 09003 H CK-MB (CK-2) 41.5 H Troponin T 0.054 H C-Reactive Protein Total Protein 4.5 L Albumin 2.0 L Triglycerides LDL Cholesterol Direct HDL Cholesterol Free T4 PTH Intact Urine WBC (Auto) Urine Creatinine Salicylates Acetaminophen Crossmatch 03/17/19 03/17/19 03/17/19 05:47 07:16 07:16 WBC RBC Hgb Hct MCV RDW Plt Count Lymph % (Auto) [place] % (Auto) Lymph # [place] # Seg Neutrophils % Seg Neuts % (Manual) Lymphocytes % (Manual) Monocytes % (Manual) Nucleated RBC % Seg Neutrophils # Seg Neutrophils # Man Lymphocytes # (Manual) Monocytes # (Manual) PT INR D-Dimer Heparin Anti-Xa Level POC ABG pH 7.193 L ABG pH POC ABG pCO2 45.2 H POC ABG pO2 65 L ABG pO2 ABG HCO3 ABG O2 Saturation ABG Base Excess ABG Hemoglobin Oxyhemoglobin Sodium Potassium Chloride Carbon Dioxide BUN Creatinine Glucose POC Glucose Lactic Acid 5.50 H* Calcium Ionized Calcium Phosphorus Magnesium Iron TIBC Ferritin Total Bilirubin Direct Bilirubin AST ALT Alkaline Phosphatase Total Creatine Kinase 94631 H CK-MB (CK-2) 54.3 H Troponin T 0.058 H C-Reactive Protein Total Protein Albumin Triglycerides LDL Cholesterol Direct HDL Cholesterol Free T4 PTH Intact Urine WBC (Auto) Urine Creatinine Salicylates Acetaminophen Crossmatch 03/17/19 03/17/19 03/17/19 11:52 12:51 13:01 WBC RBC Hgb Hct MCV RDW Plt Count Lymph % (Auto) [place] % (Auto) Lymph # [place] # Seg Neutrophils % Seg Neuts % (Manual) Lymphocytes % (Manual) Monocytes % (Manual) Nucleated RBC % Seg Neutrophils # Seg Neutrophils # Man Lymphocytes # (Manual) Monocytes # (Manual) PT INR D-Dimer Heparin Anti-Xa Level POC ABG pH 7.154 L ABG pH POC ABG pCO2 34.3 L POC ABG pO2 73 L ABG pO2 ABG HCO3 ABG O2 Saturation ABG Base Excess ABG Hemoglobin Oxyhemoglobin Sodium Potassium Chloride Carbon Dioxide BUN Creatinine Glucose POC Glucose 60 L Lactic Acid 8.20 H* Calcium Ionized Calcium Phosphorus Magnesium Iron TIBC Ferritin Total Bilirubin Direct Bilirubin AST ALT Alkaline Phosphatase Total Creatine Kinase CK-MB (CK-2) Troponin T C-Reactive Protein Total Protein Albumin Triglycerides LDL Cholesterol Direct HDL Cholesterol Free T4 PTH Intact Urine WBC (Auto) Urine Creatinine Salicylates Acetaminophen Crossmatch 03/17/19 03/17/19 03/17/19 14:37 14:37 14:37 WBC 29.3 H RBC Hgb Hct MCV RDW 15.8 H Plt Count 45 L Lymph % (Auto) [place] % (Auto) Lymph # [place] # Seg Neutrophils % Seg Neuts % (Manual) 81.0 H Lymphocytes % (Manual) 1.0 L Monocytes % (Manual) 15.0 H Nucleated RBC % Seg Neutrophils # Seg Neutrophils # Man 23.7 H Lymphocytes # (Manual) 0.3 L Monocytes # (Manual) 4.4 H PT INR D-Dimer Heparin Anti-Xa Level POC ABG pH ABG pH POC ABG pCO2 POC ABG pO2 ABG pO2 ABG HCO3 ABG O2 Saturation ABG Base Excess ABG Hemoglobin Oxyhemoglobin Sodium Potassium Chloride Carbon Dioxide BUN Creatinine Glucose POC Glucose Lactic Acid 4.90 H* Calcium Ionized Calcium Phosphorus Magnesium Iron TIBC Ferritin Total Bilirubin Direct Bilirubin AST ALT Alkaline Phosphatase Total Creatine Kinase CK-MB (CK-2) Troponin T C-Reactive Protein 24.90 H Total Protein Albumin Triglycerides LDL Cholesterol Direct HDL Cholesterol Free T4 PTH Intact Urine WBC (Auto) Urine Creatinine Salicylates Acetaminophen Crossmatch 03/17/19 03/17/19 03/17/19 16:05 16:05 17:02 WBC RBC Hgb Hct MCV RDW Plt Count Lymph % (Auto) [place] % (Auto) Lymph # [place] # Seg Neutrophils % Seg Neuts % (Manual) Lymphocytes % (Manual) Monocytes % (Manual) Nucleated RBC % Seg Neutrophils # Seg Neutrophils # Man Lymphocytes # (Manual) Monocytes # (Manual) PT INR D-Dimer Heparin Anti-Xa Level POC ABG pH 7.183 L ABG pH POC ABG pCO2 POC ABG pO2 65 L ABG pO2 ABG HCO3 ABG O2 Saturation ABG Base Excess ABG Hemoglobin Oxyhemoglobin Sodium Potassium Chloride Carbon Dioxide BUN Creatinine Glucose POC Glucose Lactic Acid Calcium Ionized Calcium Phosphorus Magnesium Iron TIBC Ferritin Total Bilirubin Direct Bilirubin AST ALT Alkaline Phosphatase Total Creatine Kinase CK-MB (CK-2) Troponin T C-Reactive Protein Total Protein Albumin Triglycerides LDL Cholesterol Direct HDL Cholesterol Free T4 PTH Intact Urine WBC (Auto) 30.0 H Urine Creatinine 106.6 H Salicylates Acetaminophen Crossmatch 03/18/19 03/18/19 03/18/19 05:12 05:16 05:53 WBC RBC Hgb Hct MCV RDW Plt Count Lymph % (Auto) [place] % (Auto) Lymph # [place] # Seg Neutrophils % Seg Neuts % (Manual) Lymphocytes % (Manual) Monocytes % (Manual) Nucleated RBC % Seg Neutrophils # Seg Neutrophils # Man Lymphocytes # (Manual) Monocytes # (Manual) PT INR D-Dimer Heparin Anti-Xa Level POC ABG pH 7.257 L ABG pH POC ABG pCO2 31.6 L POC ABG pO2 69 L ABG pO2 ABG HCO3 ABG O2 Saturation ABG Base Excess ABG Hemoglobin Oxyhemoglobin Sodium Potassium Chloride Carbon Dioxide BUN Creatinine Glucose POC Glucose 141 H Lactic Acid 5.00 H* Calcium Ionized Calcium Phosphorus Magnesium Iron TIBC Ferritin Total Bilirubin Direct Bilirubin AST ALT Alkaline Phosphatase Total Creatine Kinase CK-MB (CK-2) Troponin T C-Reactive Protein Total Protein Albumin Triglycerides LDL Cholesterol Direct HDL Cholesterol Free T4 PTH Intact Urine WBC (Auto) Urine Creatinine Salicylates Acetaminophen Crossmatch 03/18/19 03/18/19 03/18/19 06:57 08:40 08:40 WBC 31.7 H RBC Hgb Hct MCV RDW 15.5 H Plt Count 35 L Lymph % (Auto) [place] % (Auto) Lymph # [place] # Seg Neutrophils % Seg Neuts % (Manual) Lymphocytes % (Manual) Monocytes % (Manual) Nucleated RBC % Seg Neutrophils # Seg Neutrophils # Man Lymphocytes # (Manual) Monocytes # (Manual) PT INR D-Dimer Heparin Anti-Xa Level POC ABG pH ABG pH POC ABG pCO2 POC ABG pO2 ABG pO2 ABG HCO3 ABG O2 Saturation ABG Base Excess ABG Hemoglobin Oxyhemoglobin Sodium 132 L Potassium 5.5 H D Chloride 88.5 L Carbon Dioxide 18 L BUN 71 H Creatinine 8.1 H Glucose 205 H POC Glucose Lactic Acid 5.00 H* Calcium 4.1 L* D Ionized Calcium Phosphorus Magnesium 2.40 H Iron TIBC Ferritin Total Bilirubin 7.50 H Direct Bilirubin AST 1088 H ALT 159 H Alkaline Phosphatase 190 H Total Creatine Kinase 914459 H CK-MB (CK-2) Troponin T C-Reactive Protein Total Protein 4.7 L Albumin 1.8 L Triglycerides LDL Cholesterol Direct HDL Cholesterol Free T4 PTH Intact Urine WBC (Auto) Urine Creatinine Salicylates Acetaminophen Crossmatch 03/18/19 03/18/19 03/18/19 12:33 12:50 13:19 WBC RBC Hgb Hct MCV RDW Plt Count Lymph % (Auto) [place] % (Auto) Lymph # [place] # Seg Neutrophils % Seg Neuts % (Manual) Lymphocytes % (Manual) Monocytes % (Manual) Nucleated RBC % Seg Neutrophils # Seg Neutrophils # Man Lymphocytes # (Manual) Monocytes # (Manual) PT INR D-Dimer Heparin Anti-Xa Level POC ABG pH 7.282 L ABG pH POC ABG pCO2 POC ABG pO2 67 L ABG pO2 ABG HCO3 ABG O2 Saturation ABG Base Excess ABG Hemoglobin Oxyhemoglobin Sodium Potassium Chloride Carbon Dioxide BUN Creatinine Glucose POC Glucose 129 H Lactic Acid 3.30 H* Calcium Ionized Calcium Phosphorus Magnesium Iron TIBC Ferritin Total Bilirubin Direct Bilirubin AST ALT Alkaline Phosphatase Total Creatine Kinase CK-MB (CK-2) Troponin T C-Reactive Protein Total Protein Albumin Triglycerides LDL Cholesterol Direct HDL Cholesterol Free T4 PTH Intact Urine WBC (Auto) Urine Creatinine Salicylates Acetaminophen Crossmatch 03/18/19 03/18/19 03/18/19 13:19 16:50 18:11 WBC RBC Hgb Hct MCV RDW Plt Count Lymph % (Auto) [place] % (Auto) Lymph # [place] # Seg Neutrophils % Seg Neuts % (Manual) Lymphocytes % (Manual) Monocytes % (Manual) Nucleated RBC % Seg Neutrophils # Seg Neutrophils # Man Lymphocytes # (Manual) Monocytes # (Manual) PT INR D-Dimer Heparin Anti-Xa Level POC ABG pH ABG pH POC ABG pCO2 POC ABG pO2 59 L ABG pO2 ABG HCO3 ABG O2 Saturation ABG Base Excess ABG Hemoglobin Oxyhemoglobin Sodium Potassium Chloride Carbon Dioxide BUN Creatinine Glucose POC Glucose 151 H Lactic Acid Calcium 4.2 L* Ionized Calcium Phosphorus Magnesium Iron TIBC Ferritin Total Bilirubin Direct Bilirubin AST ALT Alkaline Phosphatase Total Creatine Kinase 080714 H CK-MB (CK-2) Troponin T C-Reactive Protein Total Protein Albumin Triglycerides LDL Cholesterol Direct HDL Cholesterol Free T4 PTH Intact Urine WBC (Auto) Urine Creatinine Salicylates Acetaminophen Crossmatch 03/18/19 03/18/19 03/19/19 18:20 23:39 01:42 WBC RBC Hgb Hct MCV RDW Plt Count Lymph % (Auto) [place] % (Auto) Lymph # [place] # Seg Neutrophils % Seg Neuts % (Manual) Lymphocytes % (Manual) Monocytes % (Manual) Nucleated RBC % Seg Neutrophils # Seg Neutrophils # Man Lymphocytes # (Manual) Monocytes # (Manual) PT INR D-Dimer Heparin Anti-Xa Level POC ABG pH 7.345 L ABG pH 7.285 L POC ABG pCO2 POC ABG pO2 59 L ABG pO2 44.0 L ABG HCO3 ABG O2 Saturation 70.9 L ABG Base Excess -5.7 L ABG Hemoglobin 11.9 L Oxyhemoglobin 69.6 L Sodium Potassium Chloride Carbon Dioxide BUN Creatinine Glucose POC Glucose 152 H Lactic Acid Calcium Ionized Calcium Phosphorus Magnesium Iron TIBC Ferritin Total Bilirubin Direct Bilirubin AST ALT Alkaline Phosphatase Total Creatine Kinase CK-MB (CK-2) Troponin T C-Reactive Protein Total Protein Albumin Triglycerides LDL Cholesterol Direct HDL Cholesterol Free T4 PTH Intact Urine WBC (Auto) Urine Creatinine Salicylates Acetaminophen Crossmatch 03/19/19 03/19/19 03/19/19 04:00 04:00 05:35 WBC 36.5 H RBC Hgb Hct MCV RDW 15.8 H Plt Count 35 L Lymph % (Auto) [place] % (Auto) Lymph # [place] # Seg Neutrophils % Seg Neuts % (Manual) Lymphocytes % (Manual) Monocytes % (Manual) Nucleated RBC % Seg Neutrophils # Seg Neutrophils # Man Lymphocytes # (Manual) Monocytes # (Manual) PT INR D-Dimer Heparin Anti-Xa Level POC ABG pH ABG pH 7.265 L POC ABG pCO2 POC ABG pO2 ABG pO2 35.4 L* ABG HCO3 ABG O2 Saturation 54.4 L ABG Base Excess -6.7 L ABG Hemoglobin 12.9 L Oxyhemoglobin 53.4 L Sodium 132 L Potassium 5.7 H Chloride 89.8 L Carbon Dioxide 19 L BUN 62 H Creatinine 6.4 H Glucose 151 H POC Glucose Lactic Acid Calcium 5.2 L* D Ionized Calcium Phosphorus Magnesium Iron TIBC Ferritin Total Bilirubin 7.80 H Direct Bilirubin AST 682 H ALT 130 H Alkaline Phosphatase 167 H Total Creatine Kinase CK-MB (CK-2) Troponin T C-Reactive Protein Total Protein 4.8 L Albumin 2.3 L Triglycerides LDL Cholesterol Direct HDL Cholesterol Free T4 PTH Intact Urine WBC (Auto) Urine Creatinine Salicylates Acetaminophen Crossmatch 03/19/19 03/19/19 03/19/19 05:49 09:16 09:50 WBC RBC Hgb Hct MCV RDW Plt Count Lymph % (Auto) [place] % (Auto) Lymph # [place] # Seg Neutrophils % Seg Neuts % (Manual) Lymphocytes % (Manual) Monocytes % (Manual) Nucleated RBC % Seg Neutrophils # Seg Neutrophils # Man Lymphocytes # (Manual) Monocytes # (Manual) PT INR D-Dimer Heparin Anti-Xa Level POC ABG pH 7.222 L ABG pH POC ABG pCO2 56.6 H POC ABG pO2 ABG pO2 ABG HCO3 ABG O2 Saturation ABG Base Excess ABG Hemoglobin Oxyhemoglobin Sodium Potassium Chloride Carbon Dioxide BUN Creatinine Glucose POC Glucose 154 H Lactic Acid 2.70 H* Calcium Ionized Calcium Phosphorus Magnesium Iron TIBC Ferritin Total Bilirubin Direct Bilirubin AST ALT Alkaline Phosphatase Total Creatine Kinase CK-MB (CK-2) Troponin T C-Reactive Protein Total Protein Albumin Triglycerides LDL Cholesterol Direct HDL Cholesterol Free T4 PTH Intact Urine WBC (Auto) Urine Creatinine Salicylates Acetaminophen Crossmatch 03/19/19 03/19/19 03/19/19 09:50 11:28 17:58 WBC RBC Hgb Hct MCV RDW Plt Count Lymph % (Auto) [place] % (Auto) Lymph # [place] # Seg Neutrophils % Seg Neuts % (Manual) Lymphocytes % (Manual) Monocytes % (Manual) Nucleated RBC % Seg Neutrophils # Seg Neutrophils # Man Lymphocytes # (Manual) Monocytes # (Manual) PT INR D-Dimer Heparin Anti-Xa Level POC ABG pH 7.250 L ABG pH POC ABG pCO2 52.6 H POC ABG pO2 ABG pO2 ABG HCO3 ABG O2 Saturation ABG Base Excess ABG Hemoglobin Oxyhemoglobin Sodium Potassium Chloride Carbon Dioxide BUN Creatinine Glucose POC Glucose 160 H Lactic Acid Calcium Ionized Calcium Phosphorus Magnesium Iron TIBC Ferritin Total Bilirubin Direct Bilirubin AST ALT Alkaline Phosphatase Total Creatine Kinase 46319 H CK-MB (CK-2) Troponin T C-Reactive Protein Total Protein Albumin Triglycerides LDL Cholesterol Direct HDL Cholesterol Free T4 PTH Intact Urine WBC (Auto) Urine Creatinine Salicylates Acetaminophen Crossmatch 03/19/19 03/19/19 03/20/19 19:48 21:03 02:16 WBC RBC Hgb Hct MCV RDW Plt Count Lymph % (Auto) [place] % (Auto) Lymph # [place] # Seg Neutrophils % Seg Neuts % (Manual) Lymphocytes % (Manual) Monocytes % (Manual) Nucleated RBC % Seg Neutrophils # Seg Neutrophils # Man Lymphocytes # (Manual) Monocytes # (Manual) PT INR D-Dimer Heparin Anti-Xa Level POC ABG pH 7.279 L ABG pH POC ABG pCO2 50.3 H POC ABG pO2 129 H ABG pO2 ABG HCO3 ABG O2 Saturation ABG Base Excess ABG Hemoglobin Oxyhemoglobin Sodium Potassium Chloride Carbon Dioxide BUN Creatinine Glucose POC Glucose 119 H 119 H Lactic Acid Calcium Ionized Calcium Phosphorus Magnesium Iron TIBC Ferritin Total Bilirubin Direct Bilirubin AST ALT Alkaline Phosphatase Total Creatine Kinase CK-MB (CK-2) Troponin T C-Reactive Protein Total Protein Albumin Triglycerides LDL Cholesterol Direct HDL Cholesterol Free T4 PTH Intact Urine WBC (Auto) Urine Creatinine Salicylates Acetaminophen Crossmatch 03/20/19 03/20/19 03/20/19 04:23 05:05 09:30 WBC 36.3 H RBC Hgb Hct MCV RDW 15.5 H Plt Count 29 L Lymph % (Auto) [place] % (Auto) Lymph # [place] # Seg Neutrophils % Seg Neuts % (Manual) Lymphocytes % (Manual) Monocytes % (Manual) Nucleated RBC % Seg Neutrophils # Seg Neutrophils # Man Lymphocytes # (Manual) Monocytes # (Manual) PT INR D-Dimer Heparin Anti-Xa Level POC ABG pH ABG pH POC ABG pCO2 POC ABG pO2 280 H ABG pO2 ABG HCO3 ABG O2 Saturation ABG Base Excess ABG Hemoglobin Oxyhemoglobin Sodium Potassium Chloride Carbon Dioxide BUN Creatinine Glucose POC Glucose 115 H Lactic Acid Calcium Ionized Calcium Phosphorus Magnesium Iron TIBC Ferritin Total Bilirubin Direct Bilirubin AST ALT Alkaline Phosphatase Total Creatine Kinase CK-MB (CK-2) Troponin T C-Reactive Protein Total Protein Albumin Triglycerides LDL Cholesterol Direct HDL Cholesterol Free T4 PTH Intact Urine WBC (Auto) Urine Creatinine Salicylates Acetaminophen Crossmatch 09/24/19 09/24/19 09/24/19 09:30 09:30 11:34 WBC RBC Hgb Hct MCV RDW Plt Count Lymph % (Auto) [place] % (Auto) Lymph # [place] # Seg Neutrophils % Seg Neuts % (Manual) Lymphocytes % (Manual) Monocytes % (Manual) Nucleated RBC % Seg Neutrophils # Seg Neutrophils # Man Lymphocytes # (Manual) Monocytes # (Manual) PT INR D-Dimer Heparin Anti-Xa Level POC ABG pH ABG pH POC ABG pCO2 POC ABG pO2 ABG pO2 ABG HCO3 ABG O2 Saturation ABG Base Excess ABG Hemoglobin Oxyhemoglobin Sodium 131 L Potassium Chloride 92.3 L Carbon Dioxide 20 L BUN 68 H Creatinine 6.1 H Glucose 164 H POC Glucose 141 H Lactic Acid Calcium 5.3 L* Ionized Calcium Phosphorus Magnesium Iron TIBC Ferritin Total Bilirubin 9.50 H Direct Bilirubin AST 381 H ALT 116 H Alkaline Phosphatase 255 H Total Creatine Kinase 15804 H CK-MB (CK-2) Troponin T C-Reactive Protein Total Protein 5.1 L Albumin 2.3 L Triglycerides LDL Cholesterol Direct HDL Cholesterol Free T4 PTH Intact Urine WBC (Auto) Urine Creatinine Salicylates Acetaminophen Crossmatch 03/20/19 03/20/19 03/20/19 14:41 14:45 18:50 WBC RBC Hgb Hct MCV RDW Plt Count Lymph % (Auto) [place] % (Auto) Lymph # [place] # Seg Neutrophils % Seg Neuts % (Manual) Lymphocytes % (Manual) Monocytes % (Manual) Nucleated RBC % Seg Neutrophils # Seg Neutrophils # Man Lymphocytes # (Manual) Monocytes # (Manual) PT INR D-Dimer Heparin Anti-Xa Level POC ABG pH ABG pH POC ABG pCO2 POC ABG pO2 ABG pO2 ABG HCO3 ABG O2 Saturation ABG Base Excess ABG Hemoglobin Oxyhemoglobin Sodium Potassium Chloride Carbon Dioxide BUN Creatinine Glucose POC Glucose 117 H Lactic Acid 2.90 H* Calcium Ionized Calcium Phosphorus Magnesium Iron TIBC Ferritin Total Bilirubin Direct Bilirubin AST ALT Alkaline Phosphatase Total Creatine Kinase CK-MB (CK-2) Troponin T C-Reactive Protein 13.30 H Total Protein Albumin Triglycerides LDL Cholesterol Direct HDL Cholesterol Free T4 PTH Intact Urine WBC (Auto) Urine Creatinine Salicylates Acetaminophen Crossmatch 03/20/19 03/21/19 03/21/19 21:55 04:26 04:26 WBC 37.8 H RBC Hgb Hct MCV RDW 15.4 H Plt Count 36 L Lymph % (Auto) [place] % (Auto) Lymph # [place] # Seg Neutrophils % Seg Neuts % (Manual) 93.0 H Lymphocytes % (Manual) 3.0 L Monocytes % (Manual) Nucleated RBC % 1.0 H Seg Neutrophils # 34.6 H Seg Neutrophils # Man 35.2 H Lymphocytes # (Manual) 1.1 L Monocytes # (Manual) PT INR D-Dimer Heparin Anti-Xa Level POC ABG pH ABG pH POC ABG pCO2 POC ABG pO2 ABG pO2 ABG HCO3 ABG O2 Saturation ABG Base Excess ABG Hemoglobin Oxyhemoglobin Sodium 131 L Potassium Chloride 90.7 L Carbon Dioxide 21 L BUN 69 H Creatinine 5.7 H Glucose 170 H POC Glucose 128 H Lactic Acid Calcium 6.1 L D Ionized Calcium Phosphorus Magnesium Iron TIBC Ferritin Total Bilirubin 9.50 H Direct Bilirubin AST 308 H ALT 124 H Alkaline Phosphatase 327 H Total Creatine Kinase 00213 H CK-MB (CK-2) Troponin T C-Reactive Protein Total Protein 5.7 L Albumin 2.6 L Triglycerides LDL Cholesterol Direct HDL Cholesterol Free T4 PTH Intact Urine WBC (Auto) Urine Creatinine Salicylates Acetaminophen Crossmatch 03/21/19 03/21/19 03/21/19 05:17 05:39 08:29 WBC RBC Hgb Hct MCV RDW Plt Count Lymph % (Auto) [place] % (Auto) Lymph # [place] # Seg Neutrophils % Seg Neuts % (Manual) Lymphocytes % (Manual) Monocytes % (Manual) Nucleated RBC % Seg Neutrophils # Seg Neutrophils # Man Lymphocytes # (Manual) Monocytes # (Manual) PT INR D-Dimer Heparin Anti-Xa Level POC ABG pH ABG pH POC ABG pCO2 POC ABG pO2 209 H ABG pO2 ABG HCO3 ABG O2 Saturation ABG Base Excess ABG Hemoglobin Oxyhemoglobin Sodium Potassium Chloride Carbon Dioxide BUN Creatinine Glucose POC Glucose 145 H Lactic Acid Calcium Ionized Calcium Phosphorus Magnesium Iron TIBC Ferritin Total Bilirubin Direct Bilirubin AST ALT Alkaline Phosphatase Total Creatine Kinase 33469 H CK-MB (CK-2) Troponin T C-Reactive Protein Total Protein Albumin Triglycerides LDL Cholesterol Direct HDL Cholesterol Free T4 PTH Intact Urine WBC (Auto) Urine Creatinine Salicylates Acetaminophen Crossmatch 03/21/19 03/21/19 03/21/19 08:29 11:43 12:00 WBC RBC Hgb Hct MCV RDW Plt Count Lymph % (Auto) [place] % (Auto) Lymph # [place] # Seg Neutrophils % Seg Neuts % (Manual) Lymphocytes % (Manual) Monocytes % (Manual) Nucleated RBC % Seg Neutrophils # Seg Neutrophils # Man Lymphocytes # (Manual) Monocytes # (Manual) PT INR D-Dimer Heparin Anti-Xa Level POC ABG pH ABG pH POC ABG pCO2 POC ABG pO2 ABG pO2 ABG HCO3 ABG O2 Saturation ABG Base Excess ABG Hemoglobin Oxyhemoglobin Sodium Potassium Chloride Carbon Dioxide BUN Creatinine Glucose POC Glucose 123 H Lactic Acid 2.60 H* 2.20 H* Calcium Ionized Calcium Phosphorus Magnesium Iron TIBC Ferritin Total Bilirubin Direct Bilirubin AST ALT Alkaline Phosphatase Total Creatine Kinase CK-MB (CK-2) Troponin T C-Reactive Protein Total Protein Albumin Triglycerides LDL Cholesterol Direct HDL Cholesterol Free T4 PTH Intact Urine WBC (Auto) Urine Creatinine Salicylates Acetaminophen Crossmatch 03/21/19 03/21/19 03/21/19 14:11 18:28 19:32 WBC RBC Hgb Hct MCV RDW Plt Count Lymph % (Auto) [place] % (Auto) Lymph # [place] # Seg Neutrophils % Seg Neuts % (Manual) Lymphocytes % (Manual) Monocytes % (Manual) Nucleated RBC % Seg Neutrophils # Seg Neutrophils # Man Lymphocytes # (Manual) Monocytes # (Manual) PT INR D-Dimer Heparin Anti-Xa Level POC ABG pH 7.293 L ABG pH POC ABG pCO2 POC ABG pO2 ABG pO2 ABG HCO3 ABG O2 Saturation ABG Base Excess ABG Hemoglobin Oxyhemoglobin Sodium Potassium Chloride Carbon Dioxide BUN Creatinine Glucose POC Glucose 153 H Lactic Acid 2.10 H* Calcium Ionized Calcium Phosphorus Magnesium Iron TIBC Ferritin Total Bilirubin Direct Bilirubin AST ALT Alkaline Phosphatase Total Creatine Kinase CK-MB (CK-2) Troponin T C-Reactive Protein Total Protein Albumin Triglycerides LDL Cholesterol Direct HDL Cholesterol Free T4 PTH Intact Urine WBC (Auto) Urine Creatinine Salicylates Acetaminophen Crossmatch 03/21/19 03/22/19 03/22/19 23:38 05:08 05:51 WBC RBC Hgb Hct MCV RDW Plt Count Lymph % (Auto) [place] % (Auto) Lymph # [place] # Seg Neutrophils % Seg Neuts % (Manual) Lymphocytes % (Manual) Monocytes % (Manual) Nucleated RBC % Seg Neutrophils # Seg Neutrophils # Man Lymphocytes # (Manual) Monocytes # (Manual) PT INR D-Dimer Heparin Anti-Xa Level POC ABG pH 7.283 L ABG pH POC ABG pCO2 POC ABG pO2 53 L ABG pO2 ABG HCO3 ABG O2 Saturation ABG Base Excess ABG Hemoglobin Oxyhemoglobin Sodium Potassium Chloride Carbon Dioxide BUN Creatinine Glucose POC Glucose 149 H 131 H Lactic Acid Calcium Ionized Calcium Phosphorus Magnesium Iron TIBC Ferritin Total Bilirubin Direct Bilirubin AST ALT Alkaline Phosphatase Total Creatine Kinase CK-MB (CK-2) Troponin T C-Reactive Protein Total Protein Albumin Triglycerides LDL Cholesterol Direct HDL Cholesterol Free T4 PTH Intact Urine WBC (Auto) Urine Creatinine Salicylates Acetaminophen Crossmatch 03/22/19 03/22/19 03/22/19 08:00 08:00 18:19 WBC 36.7 H RBC Hgb 11.0 L Hct 33.5 L MCV RDW 15.5 H Plt Count 43 L Lymph % (Auto) [place] % (Auto) Lymph # [place] # Seg Neutrophils % Seg Neuts % (Manual) 87.0 H Lymphocytes % (Manual) 7.0 L Monocytes % (Manual) Nucleated RBC % Seg Neutrophils # Seg Neutrophils # Man 31.9 H Lymphocytes # (Manual) Monocytes # (Manual) PT INR D-Dimer Heparin Anti-Xa Level POC ABG pH ABG pH POC ABG pCO2 46.4 H POC ABG pO2 108 H ABG pO2 ABG HCO3 ABG O2 Saturation ABG Base Excess ABG Hemoglobin Oxyhemoglobin Sodium 132 L Potassium 5.6 H Chloride 89.6 L Carbon Dioxide 20 L BUN 101 H Creatinine 7.4 H Glucose 124 H POC Glucose Lactic Acid Calcium 5.2 L* Ionized Calcium Phosphorus Magnesium Iron TIBC Ferritin Total Bilirubin 2.80 H Direct Bilirubin AST 119 H ALT 86 H Alkaline Phosphatase 245 H Total Creatine Kinase CK-MB (CK-2) Troponin T C-Reactive Protein Total Protein 5.6 L Albumin 2.5 L Triglycerides LDL Cholesterol Direct HDL Cholesterol Free T4 PTH Intact Urine WBC (Auto) Urine Creatinine Salicylates Acetaminophen Crossmatch 03/22/19 03/23/19 03/23/19 20:37 04:49 05:28 WBC 35.9 H RBC Hgb 10.8 L Hct 33.2 L MCV RDW 15.5 H Plt Count 49 L Lymph % (Auto) [place] % (Auto) Lymph # [place] # Seg Neutrophils % Seg Neuts % (Manual) 81.0 H Lymphocytes % (Manual) 3.5 L Monocytes % (Manual) Nucleated RBC % Seg Neutrophils # Seg Neutrophils # Man 29.1 H Lymphocytes # (Manual) Monocytes # (Manual) 1.4 H PT INR D-Dimer Heparin Anti-Xa Level POC ABG pH 7.296 L ABG pH POC ABG pCO2 46.2 H POC ABG pO2 ABG pO2 ABG HCO3 ABG O2 Saturation ABG Base Excess ABG Hemoglobin Oxyhemoglobin Sodium 129 L Potassium 5.2 H Chloride 91.1 L Carbon Dioxide BUN 91 H Creatinine 6.6 H Glucose 190 H POC Glucose Lactic Acid Calcium 5.3 L* Ionized Calcium Phosphorus Magnesium Iron TIBC Ferritin Total Bilirubin 1.80 H Direct Bilirubin AST 80 H ALT 62 H Alkaline Phosphatase 209 H Total Creatine Kinase 9758 H CK-MB (CK-2) Troponin T C-Reactive Protein Total Protein 5.2 L Albumin 2.2 L Triglycerides LDL Cholesterol Direct HDL Cholesterol Free T4 PTH Intact Urine WBC (Auto) Urine Creatinine Salicylates Acetaminophen Crossmatch 03/23/19 03/23/19 03/23/19 05:28 05:31 11:33 WBC 29.7 H RBC 3.59 L Hgb 10.1 L Hct 31.1 L MCV RDW 15.4 H Plt Count 47 L Lymph % (Auto) [place] % (Auto) Lymph # [place] # Seg Neutrophils % Seg Neuts % (Manual) 89.0 H Lymphocytes % (Manual) 6.0 L Monocytes % (Manual) Nucleated RBC % 1.0 H Seg Neutrophils # Seg Neutrophils # Man 26.4 H Lymphocytes # (Manual) Monocytes # (Manual) PT INR D-Dimer Heparin Anti-Xa Level POC ABG pH ABG pH POC ABG pCO2 POC ABG pO2 ABG pO2 ABG HCO3 ABG O2 Saturation ABG Base Excess ABG Hemoglobin Oxyhemoglobin Sodium Potassium Chloride Carbon Dioxide BUN Creatinine Glucose POC Glucose 122 H 113 H Lactic Acid Calcium Ionized Calcium Phosphorus Magnesium Iron TIBC Ferritin Total Bilirubin Direct Bilirubin AST ALT Alkaline Phosphatase Total Creatine Kinase CK-MB (CK-2) Troponin T C-Reactive Protein Total Protein Albumin Triglycerides LDL Cholesterol Direct HDL Cholesterol Free T4 PTH Intact Urine WBC (Auto) Urine Creatinine Salicylates Acetaminophen Crossmatch 03/23/19 03/24/19 03/24/19 17:47 00:00 04:50 WBC 35.0 H RBC Hgb 10.4 L Hct 32.4 L MCV RDW Plt Count 60 L Lymph % (Auto) [place] % (Auto) Lymph # [place] # Seg Neutrophils % Seg Neuts % (Manual) 93.0 H Lymphocytes % (Manual) 5.0 L Monocytes % (Manual) Nucleated RBC % 7.0 H Seg Neutrophils # Seg Neutrophils # Man 32.6 H Lymphocytes # (Manual) Monocytes # (Manual) PT INR D-Dimer Heparin Anti-Xa Level POC ABG pH ABG pH POC ABG pCO2 POC ABG pO2 ABG pO2 ABG HCO3 ABG O2 Saturation ABG Base Excess ABG Hemoglobin Oxyhemoglobin Sodium Potassium Chloride Carbon Dioxide BUN Creatinine Glucose POC Glucose 111 H 108 H Lactic Acid Calcium Ionized Calcium Phosphorus Magnesium Iron TIBC Ferritin Total Bilirubin Direct Bilirubin AST ALT Alkaline Phosphatase Total Creatine Kinase CK-MB (CK-2) Troponin T C-Reactive Protein Total Protein Albumin Triglycerides LDL Cholesterol Direct HDL Cholesterol Free T4 PTH Intact Urine WBC (Auto) Urine Creatinine Salicylates Acetaminophen Crossmatch 03/24/19 03/24/19 03/24/19 04:50 05:06 12:55 WBC RBC Hgb Hct MCV RDW Plt Count Lymph % (Auto) [place] % (Auto) Lymph # [place] # Seg Neutrophils % Seg Neuts % (Manual) Lymphocytes % (Manual) Monocytes % (Manual) Nucleated RBC % Seg Neutrophils # Seg Neutrophils # Man Lymphocytes # (Manual) Monocytes # (Manual) PT INR D-Dimer Heparin Anti-Xa Level POC ABG pH ABG pH POC ABG pCO2 POC ABG pO2 ABG pO2 ABG HCO3 ABG O2 Saturation ABG Base Excess ABG Hemoglobin Oxyhemoglobin Sodium 134 L Potassium 5.1 H Chloride 95.3 L Carbon Dioxide 21 L BUN 85 H Creatinine 6.4 H Glucose 109 H POC Glucose 112 H 110 H Lactic Acid Calcium 5.8 L* Ionized Calcium Phosphorus Magnesium Iron TIBC Ferritin Total Bilirubin Direct Bilirubin AST ALT Alkaline Phosphatase Total Creatine Kinase 5747 H CK-MB (CK-2) Troponin T C-Reactive Protein Total Protein Albumin Triglycerides LDL Cholesterol Direct HDL Cholesterol Free T4 PTH Intact Urine WBC (Auto) Urine Creatinine Salicylates Acetaminophen Crossmatch 03/24/19 03/25/19 03/25/19 23:29 05:00 05:00 WBC RBC Hgb Hct MCV RDW Plt Count Lymph % (Auto) [place] % (Auto) Lymph # [place] # Seg Neutrophils % Seg Neuts % (Manual) Lymphocytes % (Manual) Monocytes % (Manual) Nucleated RBC % Seg Neutrophils # Seg Neutrophils # Man Lymphocytes # (Manual) Monocytes # (Manual) PT INR D-Dimer Heparin Anti-Xa Level POC ABG pH ABG pH POC ABG pCO2 POC ABG pO2 ABG pO2 ABG HCO3 ABG O2 Saturation ABG Base Excess ABG Hemoglobin Oxyhemoglobin Sodium 133 L Potassium Chloride 94.0 L Carbon Dioxide 21 L BUN 81 H Creatinine 6.4 H Glucose POC Glucose 109 H Lactic Acid Calcium 5.5 L* Ionized Calcium Phosphorus Magnesium Iron TIBC Ferritin Total Bilirubin Direct Bilirubin AST 80 H ALT Alkaline Phosphatase 202 H Total Creatine Kinase 3589 H CK-MB (CK-2) Troponin T C-Reactive Protein Total Protein 5.3 L Albumin 2.4 L Triglycerides LDL Cholesterol Direct HDL Cholesterol Free T4 PTH Intact 329.9 H Urine WBC (Auto) Urine Creatinine Salicylates Acetaminophen Crossmatch 03/25/19 03/25/19 03/26/19 05:00 06:30 04:30 WBC 23.3 H RBC 3.61 L Hgb 10.2 L Hct 31.2 L MCV RDW Plt Count 57 L Lymph % (Auto) [place] % (Auto) Lymph # [place] # Seg Neutrophils % Seg Neuts % (Manual) 92.0 H Lymphocytes % (Manual) 6.0 L Monocytes % (Manual) Nucleated RBC % Seg Neutrophils # Seg Neutrophils # Man 21.4 H Lymphocytes # (Manual) Monocytes # (Manual) PT INR D-Dimer Heparin Anti-Xa Level POC ABG pH ABG pH 7.326 L POC ABG pCO2 POC ABG pO2 ABG pO2 109.5 H 137.4 H ABG HCO3 18.8 L 18.6 L ABG O2 Saturation ABG Base Excess -4.4 L -6.8 L ABG Hemoglobin 10.1 L 9.9 L Oxyhemoglobin Sodium Potassium Chloride Carbon Dioxide BUN Creatinine Glucose POC Glucose Lactic Acid Calcium Ionized Calcium Phosphorus Magnesium Iron TIBC Ferritin Total Bilirubin Direct Bilirubin AST ALT Alkaline Phosphatase Total Creatine Kinase CK-MB (CK-2) Troponin T C-Reactive Protein Total Protein Albumin Triglycerides LDL Cholesterol Direct HDL Cholesterol Free T4 PTH Intact Urine WBC (Auto) Urine Creatinine Salicylates Acetaminophen Crossmatch 03/26/19 03/26/19 03/26/19 23:22 Unknown Unknown WBC 19.5 H RBC 3.44 L Hgb 9.8 L Hct 29.9 L MCV RDW Plt Count 85 L Lymph % (Auto) [place] % (Auto) Lymph # [place] # Seg Neutrophils % Seg Neuts % (Manual) 95.0 H Lymphocytes % (Manual) 3.0 L Monocytes % (Manual) Nucleated RBC % Seg Neutrophils # Seg Neutrophils # Man 18.5 H Lymphocytes # (Manual) 0.6 L Monocytes # (Manual) PT INR D-Dimer Heparin Anti-Xa Level POC ABG pH ABG pH POC ABG pCO2 POC ABG pO2 ABG pO2 ABG HCO3 ABG O2 Saturation ABG Base Excess ABG Hemoglobin Oxyhemoglobin Sodium 135 L Potassium 5.2 H D Chloride 92.2 L Carbon Dioxide 18 L BUN 109 H Creatinine 8.5 H Glucose 117 H POC Glucose 69 L Lactic Acid Calcium 4.5 L* D Ionized Calcium Phosphorus Magnesium Iron TIBC Ferritin Total Bilirubin Direct Bilirubin AST ALT Alkaline Phosphatase Total Creatine Kinase 4527 H CK-MB (CK-2) Troponin T C-Reactive Protein Total Protein Albumin Triglycerides LDL Cholesterol Direct HDL Cholesterol Free T4 PTH Intact Urine WBC (Auto) Urine Creatinine Salicylates Acetaminophen Crossmatch 03/27/19 03/27/19 03/27/19 04:30 04:30 09:00 WBC 19.2 H RBC 3.42 L Hgb 9.9 L Hct 30.0 L MCV RDW Plt Count 84 L Lymph % (Auto) [place] % (Auto) Lymph # [place] # Seg Neutrophils % Seg Neuts % (Manual) Lymphocytes % (Manual) Monocytes % (Manual) Nucleated RBC % Seg Neutrophils # Seg Neutrophils # Man Lymphocytes # (Manual) Monocytes # (Manual) PT INR D-Dimer Heparin Anti-Xa Level POC ABG pH ABG pH POC ABG pCO2 POC ABG pO2 ABG pO2 ABG HCO3 ABG O2 Saturation ABG Base Excess ABG Hemoglobin Oxyhemoglobin Sodium 135 L Potassium Chloride 93.5 L Carbon Dioxide BUN 84 H Creatinine 7.1 H Glucose POC Glucose Lactic Acid Calcium 5.0 L* Ionized Calcium Phosphorus Magnesium Iron TIBC Ferritin Total Bilirubin Direct Bilirubin AST 78 H ALT Alkaline Phosphatase 135 H Total Creatine Kinase 4677 H CK-MB (CK-2) Troponin T C-Reactive Protein Total Protein 4.8 L Albumin 2.3 L Triglycerides 409 H LDL Cholesterol Direct HDL Cholesterol Free T4 PTH Intact Urine WBC (Auto) Urine Creatinine Salicylates Acetaminophen Crossmatch 03/27/19 03/27/19 03/27/19 12:37 14:15 14:15 WBC RBC Hgb 9.7 L Hct 29.5 L MCV RDW Plt Count 87 L Lymph % (Auto) [place] % (Auto) Lymph # [place] # Seg Neutrophils % Seg Neuts % (Manual) Lymphocytes % (Manual) Monocytes % (Manual) Nucleated RBC % Seg Neutrophils # Seg Neutrophils # Man Lymphocytes # (Manual) Monocytes # (Manual) PT 15.9 H INR 1.30 H D-Dimer Heparin Anti-Xa Level POC ABG pH ABG pH POC ABG pCO2 POC ABG pO2 ABG pO2 ABG HCO3 ABG O2 Saturation ABG Base Excess ABG Hemoglobin Oxyhemoglobin Sodium Potassium Chloride Carbon Dioxide BUN Creatinine Glucose POC Glucose 129 H Lactic Acid Calcium Ionized Calcium Phosphorus Magnesium Iron TIBC Ferritin Total Bilirubin Direct Bilirubin AST ALT Alkaline Phosphatase Total Creatine Kinase CK-MB (CK-2) Troponin T C-Reactive Protein Total Protein Albumin Triglycerides LDL Cholesterol Direct HDL Cholesterol Free T4 PTH Intact Urine WBC (Auto) Urine Creatinine Salicylates Acetaminophen Crossmatch 03/27/19 03/27/19 03/27/19 18:00 19:22 19:23 WBC RBC Hgb Hct MCV RDW Plt Count Lymph % (Auto) [place] % (Auto) Lymph # [place] # Seg Neutrophils % Seg Neuts % (Manual) Lymphocytes % (Manual) Monocytes % (Manual) Nucleated RBC % Seg Neutrophils # Seg Neutrophils # Man Lymphocytes # (Manual) Monocytes # (Manual) PT INR D-Dimer Heparin Anti-Xa Level < 0.10 L POC ABG pH ABG pH POC ABG pCO2 POC ABG pO2 ABG pO2 ABG HCO3 ABG O2 Saturation ABG Base Excess ABG Hemoglobin Oxyhemoglobin Sodium Potassium Chloride Carbon Dioxide BUN Creatinine Glucose POC Glucose 121 H Lactic Acid Calcium Ionized Calcium Phosphorus Magnesium Iron TIBC Ferritin Total Bilirubin Direct Bilirubin AST ALT Alkaline Phosphatase Total Creatine Kinase 4517 H CK-MB (CK-2) Troponin T C-Reactive Protein Total Protein Albumin Triglycerides LDL Cholesterol Direct HDL Cholesterol Free T4 PTH Intact Urine WBC (Auto) Urine Creatinine Salicylates Acetaminophen Crossmatch 03/27/19 03/27/19 03/28/19 22:10 23:52 03:49 WBC RBC Hgb Hct MCV RDW Plt Count Lymph % (Auto) [place] % (Auto) Lymph # [place] # Seg Neutrophils % Seg Neuts % (Manual) Lymphocytes % (Manual) Monocytes % (Manual) Nucleated RBC % Seg Neutrophils # Seg Neutrophils # Man Lymphocytes # (Manual) Monocytes # (Manual) PT INR D-Dimer Heparin Anti-Xa Level POC ABG pH 7.338 L ABG pH POC ABG pCO2 33.1 L POC ABG pO2 ABG pO2 ABG HCO3 ABG O2 Saturation ABG Base Excess ABG Hemoglobin Oxyhemoglobin Sodium Potassium Chloride Carbon Dioxide BUN Creatinine Glucose POC Glucose 113 H 117 H Lactic Acid Calcium Ionized Calcium Phosphorus Magnesium Iron TIBC Ferritin Total Bilirubin Direct Bilirubin AST ALT Alkaline Phosphatase Total Creatine Kinase CK-MB (CK-2) Troponin T C-Reactive Protein Total Protein Albumin Triglycerides LDL Cholesterol Direct HDL Cholesterol Free T4 PTH Intact Urine WBC (Auto) Urine Creatinine Salicylates Acetaminophen Crossmatch 03/28/19 03/28/19 03/28/19 05:13 05:13 06:18 WBC RBC Hgb Hct MCV RDW Plt Count Lymph % (Auto) [place] % (Auto) Lymph # [place] # Seg Neutrophils % Seg Neuts % (Manual) Lymphocytes % (Manual) Monocytes % (Manual) Nucleated RBC % Seg Neutrophils # Seg Neutrophils # Man Lymphocytes # (Manual) Monocytes # (Manual) PT INR D-Dimer Heparin Anti-Xa Level 0.23 L POC ABG pH ABG pH POC ABG pCO2 POC ABG pO2 ABG pO2 ABG HCO3 ABG O2 Saturation ABG Base Excess ABG Hemoglobin Oxyhemoglobin Sodium 135 L Potassium 5.5 H D Chloride 95.1 L Carbon Dioxide 16 L D BUN 129 H Creatinine 9.3 H Glucose 158 H POC Glucose 202 H Lactic Acid Calcium 4.0 L* D Ionized Calcium Phosphorus 12.40 H Magnesium Iron TIBC Ferritin Total Bilirubin Direct Bilirubin AST ALT Alkaline Phosphatase Total Creatine Kinase 4266 H CK-MB (CK-2) Troponin T C-Reactive Protein Total Protein Albumin Triglycerides LDL Cholesterol Direct HDL Cholesterol Free T4 PTH Intact Urine WBC (Auto) Urine Creatinine Salicylates Acetaminophen Crossmatch 03/28/19 03/28/19 03/28/19 08:25 10:00 12:00 WBC RBC Hgb 4.9 L* D Hct 15.4 L* D MCV RDW Plt Count Lymph % (Auto) [place] % (Auto) Lymph # [place] # Seg Neutrophils % Seg Neuts % (Manual) Lymphocytes % (Manual) Monocytes % (Manual) Nucleated RBC % Seg Neutrophils # Seg Neutrophils # Man Lymphocytes # (Manual) Monocytes # (Manual) PT 17.9 H INR 1.52 H D-Dimer 4845.98 H Heparin Anti-Xa Level POC ABG pH ABG pH POC ABG pCO2 POC ABG pO2 ABG pO2 ABG HCO3 ABG O2 Saturation ABG Base Excess ABG Hemoglobin Oxyhemoglobin Sodium Potassium Chloride Carbon Dioxide BUN Creatinine Glucose POC Glucose Lactic Acid Calcium Ionized Calcium Phosphorus Magnesium Iron TIBC Ferritin Total Bilirubin Direct Bilirubin AST ALT Alkaline Phosphatase Total Creatine Kinase CK-MB (CK-2) Troponin T C-Reactive Protein Total Protein Albumin Triglycerides LDL Cholesterol Direct HDL Cholesterol Free T4 PTH Intact Urine WBC (Auto) Urine Creatinine Salicylates Acetaminophen Crossmatch See Detail 03/28/19 03/28/19 03/28/19 12:28 14:10 17:43 WBC RBC Hgb 5.9 L* Hct 18.3 L* MCV RDW Plt Count Lymph % (Auto) [place] % (Auto) Lymph # [place] # Seg Neutrophils % Seg Neuts % (Manual) Lymphocytes % (Manual) Monocytes % (Manual) Nucleated RBC % Seg Neutrophils # Seg Neutrophils # Man Lymphocytes # (Manual) Monocytes # (Manual) PT INR D-Dimer Heparin Anti-Xa Level POC ABG pH ABG pH POC ABG pCO2 POC ABG pO2 ABG pO2 ABG HCO3 ABG O2 Saturation ABG Base Excess ABG Hemoglobin Oxyhemoglobin Sodium Potassium Chloride Carbon Dioxide BUN Creatinine Glucose POC Glucose 153 H 159 H Lactic Acid Calcium Ionized Calcium Phosphorus Magnesium Iron TIBC Ferritin Total Bilirubin Direct Bilirubin AST ALT Alkaline Phosphatase Total Creatine Kinase CK-MB (CK-2) Troponin T C-Reactive Protein Total Protein Albumin Triglycerides LDL Cholesterol Direct HDL Cholesterol Free T4 PTH Intact Urine WBC (Auto) Urine Creatinine Salicylates Acetaminophen Crossmatch 03/28/19 03/28/19 03/28/19 18:10 Unknown 23:59 WBC 24.8 H RBC 3.42 L Hgb 10.2 L D Hct 31.1 L D MCV RDW 15.4 H Plt Count 54 L Lymph % (Auto) [place] % (Auto) Lymph # [place] # Seg Neutrophils % Seg Neuts % (Manual) 91.0 H Lymphocytes % (Manual) 8.0 L Monocytes % (Manual) Nucleated RBC % Seg Neutrophils # Seg Neutrophils # Man 22.6 H Lymphocytes # (Manual) Monocytes # (Manual) PT INR D-Dimer Heparin Anti-Xa Level POC ABG pH ABG pH POC ABG pCO2 POC ABG pO2 ABG pO2 ABG HCO3 ABG O2 Saturation ABG Base Excess ABG Hemoglobin Oxyhemoglobin Sodium Potassium 5.7 H Chloride Carbon Dioxide BUN Creatinine Glucose POC Glucose 107 H Lactic Acid Calcium Ionized Calcium Phosphorus Magnesium Iron TIBC Ferritin Total Bilirubin Direct Bilirubin AST ALT Alkaline Phosphatase Total Creatine Kinase CK-MB (CK-2) Troponin T C-Reactive Protein Total Protein Albumin Triglycerides LDL Cholesterol Direct HDL Cholesterol Free T4 PTH Intact Urine WBC (Auto) Urine Creatinine Salicylates Acetaminophen Crossmatch 03/29/19 03/29/19 03/29/19 04:29 05:46 06:22 WBC RBC Hgb 8.6 L Hct 25.7 L MCV RDW Plt Count 93 L Lymph % (Auto) [place] % (Auto) Lymph # [place] # Seg Neutrophils % Seg Neuts % (Manual) Lymphocytes % (Manual) Monocytes % (Manual) Nucleated RBC % Seg Neutrophils # Seg Neutrophils # Man Lymphocytes # (Manual) Monocytes # (Manual) PT INR D-Dimer Heparin Anti-Xa Level POC ABG pH ABG pH POC ABG pCO2 32.2 L POC ABG pO2 ABG pO2 ABG HCO3 ABG O2 Saturation ABG Base Excess ABG Hemoglobin Oxyhemoglobin Sodium Potassium Chloride Carbon Dioxide BUN Creatinine Glucose POC Glucose 113 H Lactic Acid Calcium Ionized Calcium Phosphorus Magnesium Iron TIBC Ferritin Total Bilirubin Direct Bilirubin AST ALT Alkaline Phosphatase Total Creatine Kinase CK-MB (CK-2) Troponin T C-Reactive Protein Total Protein Albumin Triglycerides LDL Cholesterol Direct HDL Cholesterol Free T4 PTH Intact Urine WBC (Auto) Urine Creatinine Salicylates Acetaminophen Crossmatch 03/29/19 03/29/19 03/29/19 06:22 06:22 06:22 WBC 23.2 H RBC 2.91 L Hgb 8.6 L Hct 25.8 L MCV RDW Plt Count 91 L Lymph % (Auto) [place] % (Auto) Lymph # [place] # Seg Neutrophils % Seg Neuts % (Manual) Lymphocytes % (Manual) Monocytes % (Manual) Nucleated RBC % Seg Neutrophils # Seg Neutrophils # Man Lymphocytes # (Manual) Monocytes # (Manual) PT INR D-Dimer Heparin Anti-Xa Level POC ABG pH ABG pH POC ABG pCO2 POC ABG pO2 ABG pO2 ABG HCO3 ABG O2 Saturation ABG Base Excess ABG Hemoglobin Oxyhemoglobin Sodium 133 L Potassium Chloride 93.8 L Carbon Dioxide 18 L BUN 109 H Creatinine 7.4 H Glucose 124 H POC Glucose Lactic Acid Calcium 4.6 L* Ionized Calcium Phosphorus Magnesium Iron TIBC Ferritin Total Bilirubin Direct Bilirubin AST ALT Alkaline Phosphatase Total Creatine Kinase 3401 H CK-MB (CK-2) Troponin T C-Reactive Protein Total Protein Albumin Triglycerides 309 H LDL Cholesterol Direct HDL Cholesterol Free T4 PTH Intact Urine WBC (Auto) Urine Creatinine Salicylates Acetaminophen Crossmatch 03/29/19 03/29/19 03/29/19 11:48 11:48 18:24 WBC RBC Hgb 7.8 L Hct 23.2 L MCV RDW Plt Count Lymph % (Auto) [place] % (Auto) Lymph # [place] # Seg Neutrophils % Seg Neuts % (Manual) Lymphocytes % (Manual) Monocytes % (Manual) Nucleated RBC % Seg Neutrophils # Seg Neutrophils # Man Lymphocytes # (Manual) Monocytes # (Manual) PT 15.3 H INR 1.24 H D-Dimer Heparin Anti-Xa Level POC ABG pH ABG pH POC ABG pCO2 POC ABG pO2 ABG pO2 ABG HCO3 ABG O2 Saturation ABG Base Excess ABG Hemoglobin Oxyhemoglobin Sodium Potassium Chloride Carbon Dioxide BUN Creatinine Glucose POC Glucose 122 H Lactic Acid Calcium Ionized Calcium Phosphorus Magnesium Iron TIBC Ferritin Total Bilirubin Direct Bilirubin AST ALT Alkaline Phosphatase Total Creatine Kinase CK-MB (CK-2) Troponin T C-Reactive Protein Total Protein Albumin Triglycerides LDL Cholesterol Direct HDL Cholesterol Free T4 PTH Intact Urine WBC (Auto) Urine Creatinine Salicylates Acetaminophen Crossmatch 03/30/19 03/30/19 03/30/19 00:40 04:31 05:04 WBC RBC Hgb 7.6 L Hct 23.0 L MCV RDW Plt Count Lymph % (Auto) [place] % (Auto) Lymph # [place] # Seg Neutrophils % Seg Neuts % (Manual) Lymphocytes % (Manual) Monocytes % (Manual) Nucleated RBC % Seg Neutrophils # Seg Neutrophils # Man Lymphocytes # (Manual) Monocytes # (Manual) PT INR D-Dimer Heparin Anti-Xa Level POC ABG pH 7.346 L ABG pH POC ABG pCO2 POC ABG pO2 62 L ABG pO2 ABG HCO3 ABG O2 Saturation ABG Base Excess ABG Hemoglobin Oxyhemoglobin Sodium Potassium Chloride Carbon Dioxide BUN 79 H Creatinine 6.4 H Glucose POC Glucose Lactic Acid Calcium 6.1 L D Ionized Calcium Phosphorus Magnesium Iron TIBC Ferritin Total Bilirubin Direct Bilirubin AST ALT Alkaline Phosphatase Total Creatine Kinase CK-MB (CK-2) Troponin T C-Reactive Protein Total Protein Albumin Triglycerides LDL Cholesterol Direct HDL Cholesterol Free T4 PTH Intact Urine WBC (Auto) Urine Creatinine Salicylates Acetaminophen Crossmatch 03/30/19 03/30/19 03/30/19 08:45 12:09 22:43 WBC 14.3 H RBC 2.33 L Hgb 7.0 L 7.4 L Hct 21.0 L 22.3 L MCV RDW 15.6 H Plt Count 135 L Lymph % (Auto) [place] % (Auto) Lymph # [place] # Seg Neutrophils % Seg Neuts % (Manual) Lymphocytes % (Manual) Monocytes % (Manual) Nucleated RBC % Seg Neutrophils # Seg Neutrophils # Man Lymphocytes # (Manual) Monocytes # (Manual) PT INR D-Dimer Heparin Anti-Xa Level POC ABG pH ABG pH POC ABG pCO2 POC ABG pO2 ABG pO2 ABG HCO3 ABG O2 Saturation ABG Base Excess ABG Hemoglobin Oxyhemoglobin Sodium Potassium Chloride Carbon Dioxide BUN Creatinine Glucose POC Glucose Lactic Acid Calcium Ionized Calcium 3.7 L Phosphorus Magnesium Iron TIBC Ferritin Total Bilirubin Direct Bilirubin AST ALT Alkaline Phosphatase Total Creatine Kinase CK-MB (CK-2) Troponin T C-Reactive Protein Total Protein Albumin Triglycerides LDL Cholesterol Direct HDL Cholesterol Free T4 PTH Intact Urine WBC (Auto) Urine Creatinine Salicylates Acetaminophen Crossmatch 03/30/19 03/30/19 03/31/19 23:38 Unknown 04:44 WBC 11.5 H RBC 2.40 L Hgb 7.3 L Hct 21.9 L MCV RDW 15.4 H Plt Count Lymph % (Auto) 10.6 L [place] % (Auto) Lymph # [place] # Seg Neutrophils % 81.7 H Seg Neuts % (Manual) Lymphocytes % (Manual) Monocytes % (Manual) Nucleated RBC % Seg Neutrophils # 9.4 H Seg Neutrophils # Man Lymphocytes # (Manual) Monocytes # (Manual) PT INR D-Dimer Heparin Anti-Xa Level POC ABG pH ABG pH POC ABG pCO2 POC ABG pO2 ABG pO2 ABG HCO3 ABG O2 Saturation ABG Base Excess ABG Hemoglobin Oxyhemoglobin Sodium Potassium Chloride Carbon Dioxide BUN Creatinine Glucose POC Glucose 155 H Lactic Acid Calcium Ionized Calcium Phosphorus Magnesium Iron TIBC Ferritin Total Bilirubin Direct Bilirubin 0.4 H AST 63 H ALT Alkaline Phosphatase Total Creatine Kinase CK-MB (CK-2) Troponin T C-Reactive Protein Total Protein 4.9 L Albumin 2.2 L Triglycerides LDL Cholesterol Direct HDL Cholesterol Free T4 PTH Intact Urine WBC (Auto) Urine Creatinine Salicylates Acetaminophen Crossmatch 03/31/19 03/31/19 03/31/19 04:44 05:44 08:20 WBC RBC Hgb Hct MCV RDW Plt Count Lymph % (Auto) [place] % (Auto) Lymph # [place] # Seg Neutrophils % Seg Neuts % (Manual) Lymphocytes % (Manual) Monocytes % (Manual) Nucleated RBC % Seg Neutrophils # Seg Neutrophils # Man Lymphocytes # (Manual) Monocytes # (Manual) PT INR D-Dimer Heparin Anti-Xa Level POC ABG pH ABG pH POC ABG pCO2 53.5 H POC ABG pO2 62 L ABG pO2 ABG HCO3 ABG O2 Saturation ABG Base Excess ABG Hemoglobin Oxyhemoglobin Sodium 135 L Potassium Chloride 96.7 L Carbon Dioxide 19 L BUN 94 H Creatinine 7.8 H Glucose POC Glucose Lactic Acid Calcium 5.3 L* Ionized Calcium Phosphorus 8.20 H Magnesium Iron TIBC Ferritin Total Bilirubin Direct Bilirubin 0.4 H AST 60 H ALT Alkaline Phosphatase Total Creatine Kinase CK-MB (CK-2) Troponin T C-Reactive Protein Total Protein 4.8 L Albumin 2.1 L Triglycerides LDL Cholesterol Direct HDL Cholesterol Free T4 PTH Intact Urine WBC (Auto) Urine Creatinine Salicylates Acetaminophen Crossmatch 03/31/19 04/01/19 04/01/19 22:14 04:27 04:27 WBC RBC 2.60 L Hgb 8.0 L Hct 24.1 L MCV RDW 15.7 H Plt Count Lymph % (Auto) 7.9 L [place] % (Auto) Lymph # 0.7 L [place] # Seg Neutrophils % 83.6 H Seg Neuts % (Manual) Lymphocytes % (Manual) Monocytes % (Manual) Nucleated RBC % Seg Neutrophils # Seg Neutrophils # Man Lymphocytes # (Manual) Monocytes # (Manual) PT INR D-Dimer Heparin Anti-Xa Level POC ABG pH 7.286 L ABG pH POC ABG pCO2 54.7 H POC ABG pO2 179 H ABG pO2 ABG HCO3 ABG O2 Saturation ABG Base Excess ABG Hemoglobin Oxyhemoglobin Sodium Potassium Chloride Carbon Dioxide BUN 68 H Creatinine 6.6 H Glucose POC Glucose Lactic Acid Calcium 6.5 L D Ionized Calcium Phosphorus 7.30 H Magnesium Iron TIBC Ferritin Total Bilirubin Direct Bilirubin AST ALT Alkaline Phosphatase Total Creatine Kinase 1652 H CK-MB (CK-2) Troponin T C-Reactive Protein Total Protein Albumin Triglycerides LDL Cholesterol Direct HDL Cholesterol Free T4 PTH Intact Urine WBC (Auto) Urine Creatinine Salicylates Acetaminophen Crossmatch 04/01/19 04/01/19 04/01/19 05:14 05:37 18:37 WBC RBC Hgb Hct MCV RDW Plt Count Lymph % (Auto) [place] % (Auto) Lymph # [place] # Seg Neutrophils % Seg Neuts % (Manual) Lymphocytes % (Manual) Monocytes % (Manual) Nucleated RBC % Seg Neutrophils # Seg Neutrophils # Man Lymphocytes # (Manual) Monocytes # (Manual) PT INR D-Dimer Heparin Anti-Xa Level POC ABG pH 7.283 L ABG pH POC ABG pCO2 53.4 H POC ABG pO2 241 H ABG pO2 ABG HCO3 ABG O2 Saturation ABG Base Excess ABG Hemoglobin Oxyhemoglobin Sodium Potassium Chloride Carbon Dioxide BUN Creatinine Glucose POC Glucose 111 H 119 H Lactic Acid Calcium Ionized Calcium Phosphorus Magnesium Iron TIBC Ferritin Total Bilirubin Direct Bilirubin AST ALT Alkaline Phosphatase Total Creatine Kinase CK-MB (CK-2) Troponin T C-Reactive Protein Total Protein Albumin Triglycerides LDL Cholesterol Direct HDL Cholesterol Free T4 PTH Intact Urine WBC (Auto) Urine Creatinine Salicylates Acetaminophen Crossmatch 04/01/19 04/02/19 04/02/19 21:28 04:40 05:03 WBC RBC 2.36 L Hgb 7.2 L Hct 21.9 L MCV RDW 16.0 H Plt Count Lymph % (Auto) 10.8 L [place] % (Auto) Lymph # 0.8 L [place] # Seg Neutrophils % 80.3 H Seg Neuts % (Manual) Lymphocytes % (Manual) Monocytes % (Manual) Nucleated RBC % Seg Neutrophils # Seg Neutrophils # Man Lymphocytes # (Manual) Monocytes # (Manual) PT INR D-Dimer Heparin Anti-Xa Level POC ABG pH 7.299 L 7.300 L ABG pH POC ABG pCO2 48.2 H 45.2 H POC ABG pO2 133 H 107 H ABG pO2 ABG HCO3 ABG O2 Saturation ABG Base Excess ABG Hemoglobin Oxyhemoglobin Sodium Potassium Chloride Carbon Dioxide BUN Creatinine Glucose POC Glucose Lactic Acid Calcium Ionized Calcium Phosphorus Magnesium Iron TIBC Ferritin Total Bilirubin Direct Bilirubin AST ALT Alkaline Phosphatase Total Creatine Kinase CK-MB (CK-2) Troponin T C-Reactive Protein Total Protein Albumin Triglycerides LDL Cholesterol Direct HDL Cholesterol Free T4 PTH Intact Urine WBC (Auto) Urine Creatinine Salicylates Acetaminophen Crossmatch 04/02/19 04/02/19 04/02/19 05:03 05:03 12:15 WBC RBC Hgb 7.4 L Hct 22.6 L MCV RDW Plt Count Lymph % (Auto) [place] % (Auto) Lymph # [place] # Seg Neutrophils % Seg Neuts % (Manual) Lymphocytes % (Manual) Monocytes % (Manual) Nucleated RBC % Seg Neutrophils # Seg Neutrophils # Man Lymphocytes # (Manual) Monocytes # (Manual) PT INR D-Dimer Heparin Anti-Xa Level POC ABG pH ABG pH POC ABG pCO2 POC ABG pO2 ABG pO2 ABG HCO3 ABG O2 Saturation ABG Base Excess ABG Hemoglobin Oxyhemoglobin Sodium 136 L Potassium Chloride 97.8 L Carbon Dioxide 18 L BUN 82 H Creatinine 8.2 H Glucose POC Glucose Lactic Acid Calcium 6.7 L Ionized Calcium Phosphorus 7.50 H Magnesium Iron 26 L TIBC 138 L Ferritin 607.0 H Total Bilirubin Direct Bilirubin AST ALT Alkaline Phosphatase Total Creatine Kinase CK-MB (CK-2) Troponin T C-Reactive Protein Total Protein Albumin Triglycerides LDL Cholesterol Direct HDL Cholesterol Free T4 PTH Intact Urine WBC (Auto) Urine Creatinine Salicylates Acetaminophen Crossmatch 04/02/19 04/02/19 04/03/19 16:34 17:14 04:18 WBC RBC Hgb Hct MCV RDW Plt Count Lymph % (Auto) [place] % (Auto) Lymph # [place] # Seg Neutrophils % Seg Neuts % (Manual) Lymphocytes % (Manual) Monocytes % (Manual) Nucleated RBC % Seg Neutrophils # Seg Neutrophils # Man Lymphocytes # (Manual) Monocytes # (Manual) PT INR D-Dimer Heparin Anti-Xa Level POC ABG pH ABG pH POC ABG pCO2 POC ABG pO2 146 H ABG pO2 ABG HCO3 ABG O2 Saturation ABG Base Excess ABG Hemoglobin Oxyhemoglobin Sodium Potassium Chloride Carbon Dioxide BUN Creatinine Glucose POC Glucose 108 H Lactic Acid Calcium Ionized Calcium Phosphorus Magnesium Iron TIBC Ferritin Total Bilirubin Direct Bilirubin AST ALT Alkaline Phosphatase Total Creatine Kinase CK-MB (CK-2) Troponin T C-Reactive Protein Total Protein Albumin Triglycerides LDL Cholesterol Direct HDL Cholesterol Free T4 PTH Intact Urine WBC (Auto) Urine Creatinine Salicylates Acetaminophen Crossmatch See Detail 04/03/19 04/03/19 04/03/19 04:25 08:30 18:24 WBC RBC 2.40 L Hgb 7.3 L Hct 21.9 L MCV RDW Plt Count Lymph % (Auto) [place] % (Auto) 7.7 H Lymph # 0.9 L [place] # Seg Neutrophils % 74.6 H Seg Neuts % (Manual) Lymphocytes % (Manual) Monocytes % (Manual) Nucleated RBC % Seg Neutrophils # Seg Neutrophils # Man Lymphocytes # (Manual) Monocytes # (Manual) PT INR D-Dimer Heparin Anti-Xa Level POC ABG pH ABG pH POC ABG pCO2 POC ABG pO2 ABG pO2 ABG HCO3 ABG O2 Saturation ABG Base Excess ABG Hemoglobin Oxyhemoglobin Sodium 136 L Potassium Chloride 97.0 L Carbon Dioxide BUN 58 H Creatinine 7.3 H Glucose POC Glucose 106 H Lactic Acid Calcium 7.5 L Ionized Calcium Phosphorus 5.80 H D Magnesium Iron TIBC Ferritin Total Bilirubin Direct Bilirubin AST ALT Alkaline Phosphatase Total Creatine Kinase CK-MB (CK-2) Troponin T C-Reactive Protein Total Protein Albumin Triglycerides LDL Cholesterol Direct HDL Cholesterol Free T4 PTH Intact Urine WBC (Auto) Urine Creatinine Salicylates Acetaminophen Crossmatch 04/03/19 04/04/19 04/04/19 23:43 04:47 04:47 WBC RBC 2.72 L Hgb 8.3 L Hct 24.7 L MCV RDW 15.6 H Plt Count Lymph % (Auto) [place] % (Auto) 10.1 H Lymph # 0.8 L [place] # Seg Neutrophils % 71.4 H Seg Neuts % (Manual) Lymphocytes % (Manual) Monocytes % (Manual) Nucleated RBC % Seg Neutrophils # Seg Neutrophils # Man Lymphocytes # (Manual) Monocytes # (Manual) PT INR D-Dimer Heparin Anti-Xa Level POC ABG pH ABG pH POC ABG pCO2 POC ABG pO2 ABG pO2 123.8 H ABG HCO3 ABG O2 Saturation ABG Base Excess -3.0 L ABG Hemoglobin 7.9 L Oxyhemoglobin Sodium 134 L Potassium Chloride 97.9 L Carbon Dioxide BUN 64 H Creatinine 8.1 H Glucose POC Glucose Lactic Acid Calcium 7.2 L Ionized Calcium Phosphorus Magnesium Iron TIBC Ferritin Total Bilirubin Direct Bilirubin AST ALT Alkaline Phosphatase Total Creatine Kinase CK-MB (CK-2) Troponin T C-Reactive Protein Total Protein Albumin Triglycerides LDL Cholesterol Direct HDL Cholesterol Free T4 PTH Intact Urine WBC (Auto) Urine Creatinine Salicylates Acetaminophen Crossmatch 04/04/19 04/04/19 04/04/19 06:07 13:40 18:18 WBC RBC Hgb Hct MCV RDW Plt Count Lymph % (Auto) [place] % (Auto) Lymph # [place] # Seg Neutrophils % Seg Neuts % (Manual) Lymphocytes % (Manual) Monocytes % (Manual) Nucleated RBC % Seg Neutrophils # Seg Neutrophils # Man Lymphocytes # (Manual) Monocytes # (Manual) PT INR D-Dimer Heparin Anti-Xa Level POC ABG pH ABG pH POC ABG pCO2 POC ABG pO2 ABG pO2 95.9 H ABG HCO3 ABG O2 Saturation ABG Base Excess -3.0 L ABG Hemoglobin 8.5 L Oxyhemoglobin Sodium Potassium Chloride Carbon Dioxide BUN Creatinine Glucose POC Glucose 107 H 107 H Lactic Acid Calcium Ionized Calcium Phosphorus Magnesium Iron TIBC Ferritin Total Bilirubin Direct Bilirubin AST ALT Alkaline Phosphatase Total Creatine Kinase CK-MB (CK-2) Troponin T C-Reactive Protein Total Protein Albumin Triglycerides LDL Cholesterol Direct HDL Cholesterol Free T4 PTH Intact Urine WBC (Auto) Urine Creatinine Salicylates Acetaminophen Crossmatch 04/04/19 04/05/19 04/05/19 21:22 04:09 04:09 WBC RBC 2.76 L Hgb 8.4 L Hct 25.4 L MCV RDW 15.8 H Plt Count 133 L Lymph % (Auto) [place] % (Auto) 9.6 H Lymph # 0.7 L [place] # Seg Neutrophils % 72.6 H Seg Neuts % (Manual) Lymphocytes % (Manual) Monocytes % (Manual) Nucleated RBC % Seg Neutrophils # Seg Neutrophils # Man Lymphocytes # (Manual) Monocytes # (Manual) PT INR D-Dimer Heparin Anti-Xa Level POC ABG pH ABG pH POC ABG pCO2 47.2 H POC ABG pO2 137 H ABG pO2 ABG HCO3 ABG O2 Saturation ABG Base Excess ABG Hemoglobin Oxyhemoglobin Sodium 136 L Potassium Chloride Carbon Dioxide BUN 46 H Creatinine 6.7 H Glucose POC Glucose Lactic Acid Calcium 7.7 L Ionized Calcium Phosphorus Magnesium Iron TIBC Ferritin Total Bilirubin Direct Bilirubin AST ALT Alkaline Phosphatase Total Creatine Kinase CK-MB (CK-2) Troponin T C-Reactive Protein Total Protein Albumin Triglycerides LDL Cholesterol Direct HDL Cholesterol Free T4 PTH Intact Urine WBC (Auto) Urine Creatinine Salicylates Acetaminophen Crossmatch 04/05/19 04/05/19 04/05/19 05:28 06:14 16:50 WBC RBC Hgb Hct MCV RDW Plt Count Lymph % (Auto) [place] % (Auto) Lymph # [place] # Seg Neutrophils % Seg Neuts % (Manual) Lymphocytes % (Manual) Monocytes % (Manual) Nucleated RBC % Seg Neutrophils # Seg Neutrophils # Man Lymphocytes # (Manual) Monocytes # (Manual) PT INR D-Dimer Heparin Anti-Xa Level POC ABG pH ABG pH POC ABG pCO2 POC ABG pO2 67 L ABG pO2 ABG HCO3 ABG O2 Saturation ABG Base Excess ABG Hemoglobin Oxyhemoglobin Sodium Potassium Chloride Carbon Dioxide BUN Creatinine Glucose POC Glucose 108 H Lactic Acid Calcium Ionized Calcium Phosphorus Magnesium Iron TIBC Ferritin Total Bilirubin Direct Bilirubin AST ALT Alkaline Phosphatase Total Creatine Kinase CK-MB (CK-2) Troponin T C-Reactive Protein Total Protein Albumin Triglycerides LDL Cholesterol Direct HDL Cholesterol Free T4 PTH Intact Urine WBC (Auto) 40.0 H Urine Creatinine Salicylates Acetaminophen Crossmatch 04/05/19 04/06/19 04/06/19 17:22 00:13 04:44 WBC RBC 2.48 L Hgb 7.5 L Hct 22.9 L MCV RDW 16.0 H Plt Count 107 L Lymph % (Auto) [place] % (Auto) 10.7 H Lymph # 1.0 L [place] # Seg Neutrophils % Seg Neuts % (Manual) Lymphocytes % (Manual) Monocytes % (Manual) Nucleated RBC % Seg Neutrophils # Seg Neutrophils # Man Lymphocytes # (Manual) Monocytes # (Manual) PT INR D-Dimer Heparin Anti-Xa Level POC ABG pH ABG pH POC ABG pCO2 POC ABG pO2 ABG pO2 ABG HCO3 ABG O2 Saturation ABG Base Excess ABG Hemoglobin Oxyhemoglobin Sodium Potassium Chloride Carbon Dioxide BUN Creatinine Glucose POC Glucose 118 H 138 H Lactic Acid Calcium Ionized Calcium Phosphorus Magnesium Iron TIBC Ferritin Total Bilirubin Direct Bilirubin AST ALT Alkaline Phosphatase Total Creatine Kinase CK-MB (CK-2) Troponin T C-Reactive Protein Total Protein Albumin Triglycerides LDL Cholesterol Direct HDL Cholesterol Free T4 PTH Intact Urine WBC (Auto) Urine Creatinine Salicylates Acetaminophen Crossmatch 04/06/19 04/06/19 04/06/19 04:44 05:20 05:23 WBC RBC Hgb Hct MCV RDW Plt Count Lymph % (Auto) [place] % (Auto) Lymph # [place] # Seg Neutrophils % Seg Neuts % (Manual) Lymphocytes % (Manual) Monocytes % (Manual) Nucleated RBC % Seg Neutrophils # Seg Neutrophils # Man Lymphocytes # (Manual) Monocytes # (Manual) PT INR D-Dimer Heparin Anti-Xa Level POC ABG pH ABG pH POC ABG pCO2 POC ABG pO2 ABG pO2 104.0 H ABG HCO3 ABG O2 Saturation ABG Base Excess -2.1 L ABG Hemoglobin 7.3 L Oxyhemoglobin Sodium Potassium Chloride Carbon Dioxide BUN 64 H Creatinine 8.2 H Glucose 103 H POC Glucose 118 H Lactic Acid Calcium 7.3 L Ionized Calcium Phosphorus Magnesium Iron TIBC Ferritin Total Bilirubin Direct Bilirubin AST ALT Alkaline Phosphatase Total Creatine Kinase CK-MB (CK-2) Troponin T C-Reactive Protein Total Protein Albumin Triglycerides LDL Cholesterol Direct HDL Cholesterol Free T4 PTH Intact Urine WBC (Auto) Urine Creatinine Salicylates Acetaminophen Crossmatch 04/06/19 04/07/19 04/07/19 12:02 05:40 05:40 WBC RBC 2.59 L Hgb 7.9 L Hct 23.8 L MCV RDW 15.8 H Plt Count 89 L Lymph % (Auto) [place] % (Auto) 10.3 H Lymph # 1.1 L [place] # Seg Neutrophils % Seg Neuts % (Manual) Lymphocytes % (Manual) Monocytes % (Manual) Nucleated RBC % Seg Neutrophils # Seg Neutrophils # Man Lymphocytes # (Manual) Monocytes # (Manual) PT INR D-Dimer Heparin Anti-Xa Level POC ABG pH ABG pH POC ABG pCO2 POC ABG pO2 ABG pO2 ABG HCO3 ABG O2 Saturation ABG Base Excess ABG Hemoglobin Oxyhemoglobin Sodium 136 L Potassium 3.5 L Chloride Carbon Dioxide BUN 46 H Creatinine 6.2 H Glucose POC Glucose 108 H Lactic Acid Calcium 7.9 L Ionized Calcium Phosphorus Magnesium Iron TIBC Ferritin Total Bilirubin Direct Bilirubin AST ALT Alkaline Phosphatase Total Creatine Kinase CK-MB (CK-2) Troponin T C-Reactive Protein Total Protein Albumin Triglycerides LDL Cholesterol Direct HDL Cholesterol Free T4 PTH Intact Urine WBC (Auto) Urine Creatinine Salicylates Acetaminophen Crossmatch 04/07/19 04/09/19 04/09/19 12:57 04:28 04:28 WBC RBC 2.85 L Hgb 8.7 L Hct 26.2 L MCV RDW 15.6 H Plt Count Lymph % (Auto) [place] % (Auto) 10.4 H Lymph # 1.0 L [place] # Seg Neutrophils % 73.3 H Seg Neuts % (Manual) Lymphocytes % (Manual) Monocytes % (Manual) Nucleated RBC % Seg Neutrophils # Seg Neutrophils # Man Lymphocytes # (Manual) Monocytes # (Manual) PT INR D-Dimer Heparin Anti-Xa Level POC ABG pH ABG pH POC ABG pCO2 POC ABG pO2 107 H ABG pO2 ABG HCO3 ABG O2 Saturation ABG Base Excess ABG Hemoglobin Oxyhemoglobin Sodium Potassium 3.5 L Chloride 97.8 L Carbon Dioxide BUN 62 H Creatinine 8.1 H Glucose POC Glucose Lactic Acid Calcium 8.2 L Ionized Calcium Phosphorus 5.10 H Magnesium Iron TIBC Ferritin Total Bilirubin Direct Bilirubin AST ALT Alkaline Phosphatase Total Creatine Kinase CK-MB (CK-2) Troponin T C-Reactive Protein Total Protein Albumin Triglycerides LDL Cholesterol Direct HDL Cholesterol Free T4 PTH Intact Urine WBC (Auto) Urine Creatinine Salicylates Acetaminophen Crossmatch 04/10/19 04/11/19 04/11/19 18:15 00:25 04:16 WBC 11.5 H RBC 2.91 L Hgb 8.9 L Hct 27.6 L MCV 95 H RDW 17.5 H Plt Count Lymph % (Auto) [place] % (Auto) Lymph # [place] # Seg Neutrophils % Seg Neuts % (Manual) 71.0 H Lymphocytes % (Manual) Monocytes % (Manual) 8.0 H Nucleated RBC % Seg Neutrophils # Seg Neutrophils # Man 8.2 H Lymphocytes # (Manual) Monocytes # (Manual) 0.9 H PT INR D-Dimer Heparin Anti-Xa Level POC ABG pH ABG pH POC ABG pCO2 POC ABG pO2 ABG pO2 ABG HCO3 ABG O2 Saturation ABG Base Excess ABG Hemoglobin Oxyhemoglobin Sodium Potassium Chloride Carbon Dioxide BUN Creatinine Glucose POC Glucose 109 H 114 H Lactic Acid Calcium Ionized Calcium Phosphorus Magnesium Iron TIBC Ferritin Total Bilirubin Direct Bilirubin AST ALT Alkaline Phosphatase Total Creatine Kinase CK-MB (CK-2) Troponin T C-Reactive Protein Total Protein Albumin Triglycerides LDL Cholesterol Direct HDL Cholesterol Free T4 PTH Intact Urine WBC (Auto) Urine Creatinine Salicylates Acetaminophen Crossmatch 04/11/19 04/11/19 04/11/19 06:47 09:21 12:15 WBC RBC Hgb Hct MCV RDW Plt Count Lymph % (Auto) [place] % (Auto) Lymph # [place] # Seg Neutrophils % Seg Neuts % (Manual) Lymphocytes % (Manual) Monocytes % (Manual) Nucleated RBC % Seg Neutrophils # Seg Neutrophils # Man Lymphocytes # (Manual) Monocytes # (Manual) PT INR D-Dimer Heparin Anti-Xa Level POC ABG pH ABG pH POC ABG pCO2 POC ABG pO2 ABG pO2 ABG HCO3 ABG O2 Saturation ABG Base Excess ABG Hemoglobin Oxyhemoglobin Sodium Potassium 3.5 L Chloride Carbon Dioxide BUN 45 H Creatinine 6.0 H Glucose 113 H POC Glucose 106 H 109 H Lactic Acid Calcium Ionized Calcium Phosphorus Magnesium Iron TIBC Ferritin Total Bilirubin Direct Bilirubin AST ALT Alkaline Phosphatase Total Creatine Kinase CK-MB (CK-2) Troponin T C-Reactive Protein Total Protein Albumin Triglycerides LDL Cholesterol Direct HDL Cholesterol Free T4 PTH Intact Urine WBC (Auto) Urine Creatinine Salicylates Acetaminophen Crossmatch 04/11/19 04/12/19 04/12/19 18:42 12:13 23:52 WBC RBC Hgb Hct MCV RDW Plt Count Lymph % (Auto) [place] % (Auto) Lymph # [place] # Seg Neutrophils % Seg Neuts % (Manual) Lymphocytes % (Manual) Monocytes % (Manual) Nucleated RBC % Seg Neutrophils # Seg Neutrophils # Man Lymphocytes # (Manual) Monocytes # (Manual) PT INR D-Dimer Heparin Anti-Xa Level POC ABG pH ABG pH POC ABG pCO2 POC ABG pO2 ABG pO2 ABG HCO3 ABG O2 Saturation ABG Base Excess ABG Hemoglobin Oxyhemoglobin Sodium Potassium Chloride Carbon Dioxide BUN Creatinine Glucose POC Glucose 107 H 115 H 124 H Lactic Acid Calcium Ionized Calcium Phosphorus Magnesium Iron TIBC Ferritin Total Bilirubin Direct Bilirubin AST ALT Alkaline Phosphatase Total Creatine Kinase CK-MB (CK-2) Troponin T C-Reactive Protein Total Protein Albumin Triglycerides LDL Cholesterol Direct HDL Cholesterol Free T4 PTH Intact Urine WBC (Auto) Urine Creatinine Salicylates Acetaminophen Crossmatch 04/13/19 04/13/19 04/13/19 05:00 05:00 05:47 WBC 11.7 H RBC 2.97 L Hgb 8.8 L Hct 27.3 L MCV RDW 16.1 H Plt Count Lymph % (Auto) 9.5 L [place] % (Auto) 9.9 H Lymph # 1.1 L [place] # 1.2 H Seg Neutrophils % 78.6 H Seg Neuts % (Manual) Lymphocytes % (Manual) Monocytes % (Manual) Nucleated RBC % Seg Neutrophils # 9.2 H Seg Neutrophils # Man Lymphocytes # (Manual) Monocytes # (Manual) PT INR D-Dimer Heparin Anti-Xa Level POC ABG pH ABG pH POC ABG pCO2 POC ABG pO2 ABG pO2 ABG HCO3 ABG O2 Saturation ABG Base Excess ABG Hemoglobin Oxyhemoglobin Sodium Potassium 3.5 L Chloride Carbon Dioxide BUN 42 H Creatinine 4.6 H Glucose 106 H POC Glucose 107 H Lactic Acid Calcium 10.6 H D Ionized Calcium Phosphorus 5.90 H Magnesium Iron TIBC Ferritin Total Bilirubin Direct Bilirubin AST ALT Alkaline Phosphatase Total Creatine Kinase CK-MB (CK-2) Troponin T C-Reactive Protein Total Protein 5.8 L Albumin 2.5 L Triglycerides LDL Cholesterol Direct HDL Cholesterol Free T4 PTH Intact Urine WBC (Auto) Urine Creatinine Salicylates Acetaminophen Crossmatch 04/13/19 04/14/19 04/14/19 17:32 00:00 03:55 WBC RBC Hgb Hct MCV RDW Plt Count Lymph % (Auto) [place] % (Auto) Lymph # [place] # Seg Neutrophils % Seg Neuts % (Manual) Lymphocytes % (Manual) Monocytes % (Manual) Nucleated RBC % Seg Neutrophils # Seg Neutrophils # Man Lymphocytes # (Manual) Monocytes # (Manual) PT INR D-Dimer Heparin Anti-Xa Level POC ABG pH ABG pH POC ABG pCO2 POC ABG pO2 ABG pO2 ABG HCO3 ABG O2 Saturation ABG Base Excess ABG Hemoglobin Oxyhemoglobin Sodium Potassium 3.0 L Chloride Carbon Dioxide BUN 30 H Creatinine 3.1 H Glucose POC Glucose 112 H 120 H Lactic Acid Calcium 10.8 H Ionized Calcium Phosphorus Magnesium Iron TIBC Ferritin Total Bilirubin Direct Bilirubin AST ALT Alkaline Phosphatase Total Creatine Kinase CK-MB (CK-2) Troponin T C-Reactive Protein Total Protein Albumin Triglycerides LDL Cholesterol Direct HDL Cholesterol Free T4 PTH Intact Urine WBC (Auto) Urine Creatinine Salicylates Acetaminophen Crossmatch 04/14/19 04/14/19 04/15/19 11:56 23:28 05:11 WBC 13.0 H RBC 2.93 L Hgb 8.6 L Hct 26.5 L MCV RDW 16.5 H Plt Count Lymph % (Auto) 12.2 L [place] % (Auto) 9.1 H Lymph # [place] # 1.2 H Seg Neutrophils % 77.6 H Seg Neuts % (Manual) Lymphocytes % (Manual) Monocytes % (Manual) Nucleated RBC % Seg Neutrophils # 10.1 H Seg Neutrophils # Man Lymphocytes # (Manual) Monocytes # (Manual) PT INR D-Dimer Heparin Anti-Xa Level POC ABG pH ABG pH POC ABG pCO2 POC ABG pO2 ABG pO2 ABG HCO3 ABG O2 Saturation ABG Base Excess ABG Hemoglobin Oxyhemoglobin Sodium Potassium Chloride Carbon Dioxide BUN Creatinine Glucose POC Glucose 109 H 112 H Lactic Acid Calcium Ionized Calcium Phosphorus Magnesium Iron TIBC Ferritin Total Bilirubin Direct Bilirubin AST ALT Alkaline Phosphatase Total Creatine Kinase CK-MB (CK-2) Troponin T C-Reactive Protein Total Protein Albumin Triglycerides LDL Cholesterol Direct HDL Cholesterol Free T4 PTH Intact Urine WBC (Auto) Urine Creatinine Salicylates Acetaminophen Crossmatch 04/15/19 04/15/19 04/15/19 05:11 05:31 18:03 WBC RBC Hgb Hct MCV RDW Plt Count Lymph % (Auto) [place] % (Auto) Lymph # [place] # Seg Neutrophils % Seg Neuts % (Manual) Lymphocytes % (Manual) Monocytes % (Manual) Nucleated RBC % Seg Neutrophils # Seg Neutrophils # Man Lymphocytes # (Manual) Monocytes # (Manual) PT INR D-Dimer Heparin Anti-Xa Level POC ABG pH ABG pH POC ABG pCO2 POC ABG pO2 ABG pO2 ABG HCO3 ABG O2 Saturation ABG Base Excess ABG Hemoglobin Oxyhemoglobin Sodium Potassium 3.2 L Chloride Carbon Dioxide BUN 44 H Creatinine 3.6 H Glucose 106 H POC Glucose 110 H 121 H Lactic Acid Calcium 12.0 H Ionized Calcium Phosphorus 5.00 H Magnesium Iron TIBC Ferritin Total Bilirubin Direct Bilirubin AST ALT Alkaline Phosphatase Total Creatine Kinase CK-MB (CK-2) Troponin T C-Reactive Protein Total Protein Albumin Triglycerides LDL Cholesterol Direct HDL Cholesterol Free T4 PTH Intact Urine WBC (Auto) Urine Creatinine Salicylates Acetaminophen Crossmatch 04/16/19 04/16/19 05:07 05:07 WBC 12.6 H RBC 3.12 L Hgb 9.0 L Hct 28.2 L MCV RDW 16.6 H Plt Count Lymph % (Auto) 10.3 L [place] % (Auto) 9.8 H Lymph # [place] # 1.2 H Seg Neutrophils % 78.2 H Seg Neuts % (Manual) Lymphocytes % (Manual) Monocytes % (Manual) Nucleated RBC % Seg Neutrophils # 9.9 H Seg Neutrophils # Man Lymphocytes # (Manual) Monocytes # (Manual) PT INR D-Dimer Heparin Anti-Xa Level POC ABG pH ABG pH POC ABG pCO2 POC ABG pO2 ABG pO2 ABG HCO3 ABG O2 Saturation ABG Base Excess ABG Hemoglobin Oxyhemoglobin Sodium 147 H Potassium 3.5 L Chloride Carbon Dioxide BUN 54 H Creatinine 3.8 H Glucose 102 H POC Glucose Lactic Acid Calcium 11.7 H Ionized Calcium Phosphorus Magnesium Iron TIBC Ferritin Total Bilirubin Direct Bilirubin AST ALT Alkaline Phosphatase Total Creatine Kinase CK-MB (CK-2) Troponin T C-Reactive Protein Total Protein Albumin Triglycerides LDL Cholesterol Direct HDL Cholesterol Free T4 PTH Intact Urine WBC (Auto) Urine Creatinine Salicylates Acetaminophen Crossmatch Allied health notes reviewed: nursing
--- NOTE | 2019-04-16 18:03 | Progress Note ---
Assessment and Plan Patient is a 43 y/o man w/ a history of psychiatric illness (unknown which psychiatric diagnosis he has been given in the past), who presented on 03/16/19 with altered mental status. During the course of admission, patient was found to have sepsis with septic shock, rhabdomyolysis, RUBEN, and multiorgan failure. According to the patient's clinical findings, the patient likely has toxic metabolic encephalopathy. In support of this diagnosis, the multiple metabolic derangements including multiorgan failure, sepsis, septic shock requiring pressor support, RUBEN, rhabdomyolysis. Plan: 1. Metabolic encephalopathy: - Likely due to multiple underlying metabolic derangements, including multiorgan failure, sepsis, septic shock requiring pressor support, RUBEN. - Mental status improved since admission. Patient now extubated and conversant. - Patient on antibiotics per ID. - EEG showed generalized slowing, no seizures or epileptiform activity. - Continue supportive care per ICU/primary/ID teams. - Discussed at length with patient's brother regarding current neurologic status, altered mental status due to metabolic abnormalities. -Will continue to monitor the patient's neurologic status.. Thank you for allowing me to take part in the care of this patient. Nahid Carroll MD Neurology Subjective Date of service: 04/16/19 Principal diagnosis: anemia - DVT IJ Interval history: Patient extubated last week. He is sitting in bed, conversing. Febrile overnight. Objective - Exam Narrative Exam: Patient is awake, alert, oriented to self and year, minus month, date. Following 2-step commands. PERRL, EOMI, no facial weakness noted, tongue midline, visual argueta full, bilaterally intact to light touch. Bilaterally intact light touch in all extremities.. 2+ reflexes throughout. No dysarthria or aphasia noted. 2/5 strength in bilateral upper extremities, 2/5 strength in bilateral lower extremities. - Vital Sign Vital Signs - 12hr 04/16/19 04/16/19 04/16/19 06:01 07:01 08:00 Temperature 99.3 F Pulse Rate 146 H 124 H 158 H Pulse Rate [ 107 H From Monitor] Respiratory 24 37 H 41 H Rate Blood Pressure 140/73 140/73 127/88 O2 Sat by Pulse 98 98 98 Oximetry 04/16/19 04/16/19 04/16/19 09:00 09:29 10:00 Temperature Pulse Rate 106 H 107 H 102 H Pulse Rate [ From Monitor] Respiratory 38 H 41 H Rate Blood Pressure 129/84 129/84 145/79 O2 Sat by Pulse 97 98 Oximetry 04/16/19 04/16/19 04/16/19 11:01 12:00 12:01 Temperature 100.7 F H Pulse Rate 91 H 91 H 91 H Pulse Rate [ 92 H From Monitor] Respiratory 16 19 38 H Rate Blood Pressure 133/68 120/77 O2 Sat by Pulse 96 98 95 Oximetry 04/16/19 04/16/19 04/16/19 13:00 14:00 16:00 Temperature 98.4 F Pulse Rate 155 H 145 H Pulse Rate [ From Monitor] Respiratory 12 29 H Rate Blood Pressure 124/77 125/82 O2 Sat by Pulse 94 95 Oximetry - General Apperance Constitutional: comfortable - EENT EENT: ATNC, PERRL, mucous membranes moist, hearing intact, vision intact - Respiratory Respiratory: decreased breath sounds - Cardiovascular Cardiovascular: regular rate, normal S1, normal S2 Extremities: no clubbing, cyanosis, no inflammation - Gastrointestinal Gastrointestinal: normoactive bowel sounds, soft, non-tender - Integumentary Integumentary: normal - Psychiatric Psychiatric: mood/affect appropriate - Laboratory Findings CBC and BMP: 04/16/19 05:07 04/16/19 05:07 Abnormal Lab Findings: Abnormal Labs 03/16/19 03/16/19 03/16/19 15:32 16:03 16:05 WBC 27.0 H RBC 5.55 H Hgb 15.7 H Hct 47.1 H MCV RDW Plt Count 75 L Lymph % (Auto) Miller % (Auto) Lymph # Miller # Seg Neutrophils % Seg Neuts % (Manual) 85.0 H Lymphocytes % (Manual) 2.0 L Monocytes % (Manual) Nucleated RBC % Seg Neutrophils # Seg Neutrophils # Man 23.0 H Lymphocytes # (Manual) 0.5 L Monocytes # (Manual) PT INR D-Dimer Heparin Anti-Xa Level POC ABG pH ABG pH POC ABG pCO2 POC ABG pO2 ABG pO2 ABG HCO3 ABG O2 Saturation ABG Base Excess ABG Hemoglobin Oxyhemoglobin Sodium 127 L Potassium Chloride 87.8 L Carbon Dioxide 17 L BUN 49 H Creatinine 5.8 H Glucose 150 H POC Glucose 118 H Lactic Acid Calcium 6.6 L Ionized Calcium Phosphorus Magnesium 1.10 L Iron TIBC Ferritin Total Bilirubin Direct Bilirubin AST ALT Alkaline Phosphatase Total Creatine Kinase 27393 H CK-MB (CK-2) Troponin T C-Reactive Protein Total Protein Albumin Triglycerides LDL Cholesterol Direct HDL Cholesterol Free T4 PTH Intact Urine WBC (Auto) Urine Creatinine Salicylates Acetaminophen Crossmatch 03/16/19 03/16/19 03/16/19 16:59 17:05 17:05 WBC RBC Hgb Hct MCV RDW Plt Count Lymph % (Auto) Miller % (Auto) Lymph # Miller # Seg Neutrophils % Seg Neuts % (Manual) Lymphocytes % (Manual) Monocytes % (Manual) Nucleated RBC % Seg Neutrophils # Seg Neutrophils # Man Lymphocytes # (Manual) Monocytes # (Manual) PT INR D-Dimer Heparin Anti-Xa Level POC ABG pH 7.297 L ABG pH POC ABG pCO2 33.0 L POC ABG pO2 ABG pO2 ABG HCO3 ABG O2 Saturation ABG Base Excess ABG Hemoglobin Oxyhemoglobin Sodium Potassium Chloride Carbon Dioxide BUN Creatinine Glucose POC Glucose Lactic Acid Calcium Ionized Calcium Phosphorus Magnesium Iron TIBC Ferritin Total Bilirubin Direct Bilirubin AST ALT Alkaline Phosphatase Total Creatine Kinase 01503 H CK-MB (CK-2) 83.1 H Troponin T C-Reactive Protein Total Protein Albumin Triglycerides LDL Cholesterol Direct HDL Cholesterol Free T4 0.72 L PTH Intact Urine WBC (Auto) Urine Creatinine Salicylates Acetaminophen Crossmatch 03/16/19 03/16/19 03/16/19 17:05 17:05 17:05 WBC RBC Hgb Hct MCV RDW Plt Count Lymph % (Auto) Miller % (Auto) Lymph # Miller # Seg Neutrophils % Seg Neuts % (Manual) Lymphocytes % (Manual) Monocytes % (Manual) Nucleated RBC % Seg Neutrophils # Seg Neutrophils # Man Lymphocytes # (Manual) Monocytes # (Manual) PT INR D-Dimer Heparin Anti-Xa Level POC ABG pH ABG pH POC ABG pCO2 POC ABG pO2 ABG pO2 ABG HCO3 ABG O2 Saturation ABG Base Excess ABG Hemoglobin Oxyhemoglobin Sodium Potassium Chloride Carbon Dioxide BUN Creatinine Glucose POC Glucose Lactic Acid 5.10 H* Calcium Ionized Calcium Phosphorus Magnesium Iron TIBC Ferritin Total Bilirubin Direct Bilirubin AST ALT Alkaline Phosphatase Total Creatine Kinase CK-MB (CK-2) Troponin T C-Reactive Protein Total Protein Albumin Triglycerides LDL Cholesterol Direct HDL Cholesterol Free T4 PTH Intact Urine WBC (Auto) Urine Creatinine Salicylates < 0.3 L Acetaminophen < 5.0 L Crossmatch 03/16/19 03/16/19 03/16/19 17:05 17:05 20:35 WBC RBC Hgb Hct MCV RDW Plt Count Lymph % (Auto) Miller % (Auto) Lymph # Miller # Seg Neutrophils % Seg Neuts % (Manual) Lymphocytes % (Manual) Monocytes % (Manual) Nucleated RBC % Seg Neutrophils # Seg Neutrophils # Man Lymphocytes # (Manual) Monocytes # (Manual) PT 15.9 H INR 1.30 H D-Dimer Heparin Anti-Xa Level POC ABG pH ABG pH POC ABG pCO2 POC ABG pO2 ABG pO2 ABG HCO3 ABG O2 Saturation ABG Base Excess ABG Hemoglobin Oxyhemoglobin Sodium Potassium Chloride Carbon Dioxide BUN Creatinine Glucose POC Glucose Lactic Acid 3.30 H* Calcium Ionized Calcium Phosphorus Magnesium Iron TIBC Ferritin Total Bilirubin 6.20 H Direct Bilirubin 5.9 H AST 800 H ALT 120 H Alkaline Phosphatase Total Creatine Kinase CK-MB (CK-2) Troponin T C-Reactive Protein Total Protein 4.4 L Albumin 2.4 L Triglycerides LDL Cholesterol Direct HDL Cholesterol Free T4 PTH Intact Urine WBC (Auto) Urine Creatinine Salicylates Acetaminophen Crossmatch 03/16/19 03/16/19 03/16/19 21:45 22:32 Unknown WBC RBC Hgb Hct MCV RDW Plt Count Lymph % (Auto) Miller % (Auto) Lymph # Miller # Seg Neutrophils % Seg Neuts % (Manual) Lymphocytes % (Manual) Monocytes % (Manual) Nucleated RBC % Seg Neutrophils # Seg Neutrophils # Man Lymphocytes # (Manual) Monocytes # (Manual) PT INR D-Dimer Heparin Anti-Xa Level POC ABG pH ABG pH POC ABG pCO2 POC ABG pO2 ABG pO2 ABG HCO3 ABG O2 Saturation ABG Base Excess ABG Hemoglobin Oxyhemoglobin Sodium Potassium Chloride Carbon Dioxide BUN Creatinine Glucose POC Glucose Lactic Acid 3.30 H* 3.00 H* Calcium Ionized Calcium Phosphorus Magnesium Iron TIBC Ferritin Total Bilirubin Direct Bilirubin AST ALT Alkaline Phosphatase Total Creatine Kinase CK-MB (CK-2) Troponin T 0.047 H D C-Reactive Protein Total Protein Albumin Triglycerides 395 H LDL Cholesterol Direct 10 L HDL Cholesterol 7 L Free T4 PTH Intact Urine WBC (Auto) Urine Creatinine Salicylates Acetaminophen Crossmatch 03/17/19 03/17/19 03/17/19 03:45 03:45 03:45 WBC RBC Hgb Hct MCV RDW Plt Count Lymph % (Auto) Miller % (Auto) Lymph # Miller # Seg Neutrophils % Seg Neuts % (Manual) Lymphocytes % (Manual) Monocytes % (Manual) Nucleated RBC % Seg Neutrophils # Seg Neutrophils # Man Lymphocytes # (Manual) Monocytes # (Manual) PT INR D-Dimer Heparin Anti-Xa Level POC ABG pH ABG pH POC ABG pCO2 POC ABG pO2 ABG pO2 ABG HCO3 ABG O2 Saturation ABG Base Excess ABG Hemoglobin Oxyhemoglobin Sodium 131 L Potassium Chloride 88.9 L Carbon Dioxide BUN 53 H Creatinine 7.1 H Glucose POC Glucose Lactic Acid 4.10 H* Calcium 5.4 L* D Ionized Calcium Phosphorus 7.30 H Magnesium 1.60 L Iron TIBC Ferritin Total Bilirubin 5.90 H Direct Bilirubin AST 801 H ALT 109 H Alkaline Phosphatase Total Creatine Kinase 90857 H 90375 H CK-MB (CK-2) 41.5 H Troponin T 0.054 H C-Reactive Protein Total Protein 4.5 L Albumin 2.0 L Triglycerides LDL Cholesterol Direct HDL Cholesterol Free T4 PTH Intact Urine WBC (Auto) Urine Creatinine Salicylates Acetaminophen Crossmatch 03/17/19 03/17/19 03/17/19 05:47 07:16 07:16 WBC RBC Hgb Hct MCV RDW Plt Count Lymph % (Auto) Miller % (Auto) Lymph # Miller # Seg Neutrophils % Seg Neuts % (Manual) Lymphocytes % (Manual) Monocytes % (Manual) Nucleated RBC % Seg Neutrophils # Seg Neutrophils # Man Lymphocytes # (Manual) Monocytes # (Manual) PT INR D-Dimer Heparin Anti-Xa Level POC ABG pH 7.193 L ABG pH POC ABG pCO2 45.2 H POC ABG pO2 65 L ABG pO2 ABG HCO3 ABG O2 Saturation ABG Base Excess ABG Hemoglobin Oxyhemoglobin Sodium Potassium Chloride Carbon Dioxide BUN Creatinine Glucose POC Glucose Lactic Acid 5.50 H* Calcium Ionized Calcium Phosphorus Magnesium Iron TIBC Ferritin Total Bilirubin Direct Bilirubin AST ALT Alkaline Phosphatase Total Creatine Kinase 72072 H CK-MB (CK-2) 54.3 H Troponin T 0.058 H C-Reactive Protein Total Protein Albumin Triglycerides LDL Cholesterol Direct HDL Cholesterol Free T4 PTH Intact Urine WBC (Auto) Urine Creatinine Salicylates Acetaminophen Crossmatch 03/17/19 03/17/19 03/17/19 11:52 12:51 13:01 WBC RBC Hgb Hct MCV RDW Plt Count Lymph % (Auto) Miller % (Auto) Lymph # Miller # Seg Neutrophils % Seg Neuts % (Manual) Lymphocytes % (Manual) Monocytes % (Manual) Nucleated RBC % Seg Neutrophils # Seg Neutrophils # Man Lymphocytes # (Manual) Monocytes # (Manual) PT INR D-Dimer Heparin Anti-Xa Level POC ABG pH 7.154 L ABG pH POC ABG pCO2 34.3 L POC ABG pO2 73 L ABG pO2 ABG HCO3 ABG O2 Saturation ABG Base Excess ABG Hemoglobin Oxyhemoglobin Sodium Potassium Chloride Carbon Dioxide BUN Creatinine Glucose POC Glucose 60 L Lactic Acid 8.20 H* Calcium Ionized Calcium Phosphorus Magnesium Iron TIBC Ferritin Total Bilirubin Direct Bilirubin AST ALT Alkaline Phosphatase Total Creatine Kinase CK-MB (CK-2) Troponin T C-Reactive Protein Total Protein Albumin Triglycerides LDL Cholesterol Direct HDL Cholesterol Free T4 PTH Intact Urine WBC (Auto) Urine Creatinine Salicylates Acetaminophen Crossmatch 03/17/19 03/17/19 03/17/19 14:37 14:37 14:37 WBC 29.3 H RBC Hgb Hct MCV RDW 15.8 H Plt Count 45 L Lymph % (Auto) Miller % (Auto) Lymph # Miller # Seg Neutrophils % Seg Neuts % (Manual) 81.0 H Lymphocytes % (Manual) 1.0 L Monocytes % (Manual) 15.0 H Nucleated RBC % Seg Neutrophils # Seg Neutrophils # Man 23.7 H Lymphocytes # (Manual) 0.3 L Monocytes # (Manual) 4.4 H PT INR D-Dimer Heparin Anti-Xa Level POC ABG pH ABG pH POC ABG pCO2 POC ABG pO2 ABG pO2 ABG HCO3 ABG O2 Saturation ABG Base Excess ABG Hemoglobin Oxyhemoglobin Sodium Potassium Chloride Carbon Dioxide BUN Creatinine Glucose POC Glucose Lactic Acid 4.90 H* Calcium Ionized Calcium Phosphorus Magnesium Iron TIBC Ferritin Total Bilirubin Direct Bilirubin AST ALT Alkaline Phosphatase Total Creatine Kinase CK-MB (CK-2) Troponin T C-Reactive Protein 24.90 H Total Protein Albumin Triglycerides LDL Cholesterol Direct HDL Cholesterol Free T4 PTH Intact Urine WBC (Auto) Urine Creatinine Salicylates Acetaminophen Crossmatch 03/17/19 03/17/19 03/17/19 16:05 16:05 17:02 WBC RBC Hgb Hct MCV RDW Plt Count Lymph % (Auto) Miller % (Auto) Lymph # Miller # Seg Neutrophils % Seg Neuts % (Manual) Lymphocytes % (Manual) Monocytes % (Manual) Nucleated RBC % Seg Neutrophils # Seg Neutrophils # Man Lymphocytes # (Manual) Monocytes # (Manual) PT INR D-Dimer Heparin Anti-Xa Level POC ABG pH 7.183 L ABG pH POC ABG pCO2 POC ABG pO2 65 L ABG pO2 ABG HCO3 ABG O2 Saturation ABG Base Excess ABG Hemoglobin Oxyhemoglobin Sodium Potassium Chloride Carbon Dioxide BUN Creatinine Glucose POC Glucose Lactic Acid Calcium Ionized Calcium Phosphorus Magnesium Iron TIBC Ferritin Total Bilirubin Direct Bilirubin AST ALT Alkaline Phosphatase Total Creatine Kinase CK-MB (CK-2) Troponin T C-Reactive Protein Total Protein Albumin Triglycerides LDL Cholesterol Direct HDL Cholesterol Free T4 PTH Intact Urine WBC (Auto) 30.0 H Urine Creatinine 106.6 H Salicylates Acetaminophen Crossmatch 03/18/19 03/18/19 03/18/19 05:12 05:16 05:53 WBC RBC Hgb Hct MCV RDW Plt Count Lymph % (Auto) Miller % (Auto) Lymph # Miller # Seg Neutrophils % Seg Neuts % (Manual) Lymphocytes % (Manual) Monocytes % (Manual) Nucleated RBC % Seg Neutrophils # Seg Neutrophils # Man Lymphocytes # (Manual) Monocytes # (Manual) PT INR D-Dimer Heparin Anti-Xa Level POC ABG pH 7.257 L ABG pH POC ABG pCO2 31.6 L POC ABG pO2 69 L ABG pO2 ABG HCO3 ABG O2 Saturation ABG Base Excess ABG Hemoglobin Oxyhemoglobin Sodium Potassium Chloride Carbon Dioxide BUN Creatinine Glucose POC Glucose 141 H Lactic Acid 5.00 H* Calcium Ionized Calcium Phosphorus Magnesium Iron TIBC Ferritin Total Bilirubin Direct Bilirubin AST ALT Alkaline Phosphatase Total Creatine Kinase CK-MB (CK-2) Troponin T C-Reactive Protein Total Protein Albumin Triglycerides LDL Cholesterol Direct HDL Cholesterol Free T4 PTH Intact Urine WBC (Auto) Urine Creatinine Salicylates Acetaminophen Crossmatch 03/18/19 03/18/19 03/18/19 06:57 08:40 08:40 WBC 31.7 H RBC Hgb Hct MCV RDW 15.5 H Plt Count 35 L Lymph % (Auto) Miller % (Auto) Lymph # Miller # Seg Neutrophils % Seg Neuts % (Manual) Lymphocytes % (Manual) Monocytes % (Manual) Nucleated RBC % Seg Neutrophils # Seg Neutrophils # Man Lymphocytes # (Manual) Monocytes # (Manual) PT INR D-Dimer Heparin Anti-Xa Level POC ABG pH ABG pH POC ABG pCO2 POC ABG pO2 ABG pO2 ABG HCO3 ABG O2 Saturation ABG Base Excess ABG Hemoglobin Oxyhemoglobin Sodium 132 L Potassium 5.5 H D Chloride 88.5 L Carbon Dioxide 18 L BUN 71 H Creatinine 8.1 H Glucose 205 H POC Glucose Lactic Acid 5.00 H* Calcium 4.1 L* D Ionized Calcium Phosphorus Magnesium 2.40 H Iron TIBC Ferritin Total Bilirubin 7.50 H Direct Bilirubin AST 1088 H ALT 159 H Alkaline Phosphatase 190 H Total Creatine Kinase 704707 H CK-MB (CK-2) Troponin T C-Reactive Protein Total Protein 4.7 L Albumin 1.8 L Triglycerides LDL Cholesterol Direct HDL Cholesterol Free T4 PTH Intact Urine WBC (Auto) Urine Creatinine Salicylates Acetaminophen Crossmatch 03/18/19 03/18/19 03/18/19 12:33 12:50 13:19 WBC RBC Hgb Hct MCV RDW Plt Count Lymph % (Auto) Miller % (Auto) Lymph # Miller # Seg Neutrophils % Seg Neuts % (Manual) Lymphocytes % (Manual) Monocytes % (Manual) Nucleated RBC % Seg Neutrophils # Seg Neutrophils # Man Lymphocytes # (Manual) Monocytes # (Manual) PT INR D-Dimer Heparin Anti-Xa Level POC ABG pH 7.282 L ABG pH POC ABG pCO2 POC ABG pO2 67 L ABG pO2 ABG HCO3 ABG O2 Saturation ABG Base Excess ABG Hemoglobin Oxyhemoglobin Sodium Potassium Chloride Carbon Dioxide BUN Creatinine Glucose POC Glucose 129 H Lactic Acid 3.30 H* Calcium Ionized Calcium Phosphorus Magnesium Iron TIBC Ferritin Total Bilirubin Direct Bilirubin AST ALT Alkaline Phosphatase Total Creatine Kinase CK-MB (CK-2) Troponin T C-Reactive Protein Total Protein Albumin Triglycerides LDL Cholesterol Direct HDL Cholesterol Free T4 PTH Intact Urine WBC (Auto) Urine Creatinine Salicylates Acetaminophen Crossmatch 03/18/19 03/18/19 03/18/19 13:19 16:50 18:11 WBC RBC Hgb Hct MCV RDW Plt Count Lymph % (Auto) Miller % (Auto) Lymph # Miller # Seg Neutrophils % Seg Neuts % (Manual) Lymphocytes % (Manual) Monocytes % (Manual) Nucleated RBC % Seg Neutrophils # Seg Neutrophils # Man Lymphocytes # (Manual) Monocytes # (Manual) PT INR D-Dimer Heparin Anti-Xa Level POC ABG pH ABG pH POC ABG pCO2 POC ABG pO2 59 L ABG pO2 ABG HCO3 ABG O2 Saturation ABG Base Excess ABG Hemoglobin Oxyhemoglobin Sodium Potassium Chloride Carbon Dioxide BUN Creatinine Glucose POC Glucose 151 H Lactic Acid Calcium 4.2 L* Ionized Calcium Phosphorus Magnesium Iron TIBC Ferritin Total Bilirubin Direct Bilirubin AST ALT Alkaline Phosphatase Total Creatine Kinase 749472 H CK-MB (CK-2) Troponin T C-Reactive Protein Total Protein Albumin Triglycerides LDL Cholesterol Direct HDL Cholesterol Free T4 PTH Intact Urine WBC (Auto) Urine Creatinine Salicylates Acetaminophen Crossmatch 03/18/19 03/18/19 03/19/19 18:20 23:39 01:42 WBC RBC Hgb Hct MCV RDW Plt Count Lymph % (Auto) Miller % (Auto) Lymph # Miller # Seg Neutrophils % Seg Neuts % (Manual) Lymphocytes % (Manual) Monocytes % (Manual) Nucleated RBC % Seg Neutrophils # Seg Neutrophils # Man Lymphocytes # (Manual) Monocytes # (Manual) PT INR D-Dimer Heparin Anti-Xa Level POC ABG pH 7.345 L ABG pH 7.285 L POC ABG pCO2 POC ABG pO2 59 L ABG pO2 44.0 L ABG HCO3 ABG O2 Saturation 70.9 L ABG Base Excess -5.7 L ABG Hemoglobin 11.9 L Oxyhemoglobin 69.6 L Sodium Potassium Chloride Carbon Dioxide BUN Creatinine Glucose POC Glucose 152 H Lactic Acid Calcium Ionized Calcium Phosphorus Magnesium Iron TIBC Ferritin Total Bilirubin Direct Bilirubin AST ALT Alkaline Phosphatase Total Creatine Kinase CK-MB (CK-2) Troponin T C-Reactive Protein Total Protein Albumin Triglycerides LDL Cholesterol Direct HDL Cholesterol Free T4 PTH Intact Urine WBC (Auto) Urine Creatinine Salicylates Acetaminophen Crossmatch 03/19/19 03/19/19 03/19/19 04:00 04:00 05:35 WBC 36.5 H RBC Hgb Hct MCV RDW 15.8 H Plt Count 35 L Lymph % (Auto) Miller % (Auto) Lymph # Miller # Seg Neutrophils % Seg Neuts % (Manual) Lymphocytes % (Manual) Monocytes % (Manual) Nucleated RBC % Seg Neutrophils # Seg Neutrophils # Man Lymphocytes # (Manual) Monocytes # (Manual) PT INR D-Dimer Heparin Anti-Xa Level POC ABG pH ABG pH 7.265 L POC ABG pCO2 POC ABG pO2 ABG pO2 35.4 L* ABG HCO3 ABG O2 Saturation 54.4 L ABG Base Excess -6.7 L ABG Hemoglobin 12.9 L Oxyhemoglobin 53.4 L Sodium 132 L Potassium 5.7 H Chloride 89.8 L Carbon Dioxide 19 L BUN 62 H Creatinine 6.4 H Glucose 151 H POC Glucose Lactic Acid Calcium 5.2 L* D Ionized Calcium Phosphorus Magnesium Iron TIBC Ferritin Total Bilirubin 7.80 H Direct Bilirubin AST 682 H ALT 130 H Alkaline Phosphatase 167 H Total Creatine Kinase CK-MB (CK-2) Troponin T C-Reactive Protein Total Protein 4.8 L Albumin 2.3 L Triglycerides LDL Cholesterol Direct HDL Cholesterol Free T4 PTH Intact Urine WBC (Auto) Urine Creatinine Salicylates Acetaminophen Crossmatch 03/19/19 03/19/19 03/19/19 05:49 09:16 09:50 WBC RBC Hgb Hct MCV RDW Plt Count Lymph % (Auto) Miller % (Auto) Lymph # Miller # Seg Neutrophils % Seg Neuts % (Manual) Lymphocytes % (Manual) Monocytes % (Manual) Nucleated RBC % Seg Neutrophils # Seg Neutrophils # Man Lymphocytes # (Manual) Monocytes # (Manual) PT INR D-Dimer Heparin Anti-Xa Level POC ABG pH 7.222 L ABG pH POC ABG pCO2 56.6 H POC ABG pO2 ABG pO2 ABG HCO3 ABG O2 Saturation ABG Base Excess ABG Hemoglobin Oxyhemoglobin Sodium Potassium Chloride Carbon Dioxide BUN Creatinine Glucose POC Glucose 154 H Lactic Acid 2.70 H* Calcium Ionized Calcium Phosphorus Magnesium Iron TIBC Ferritin Total Bilirubin Direct Bilirubin AST ALT Alkaline Phosphatase Total Creatine Kinase CK-MB (CK-2) Troponin T C-Reactive Protein Total Protein Albumin Triglycerides LDL Cholesterol Direct HDL Cholesterol Free T4 PTH Intact Urine WBC (Auto) Urine Creatinine Salicylates Acetaminophen Crossmatch 03/19/19 03/19/19 03/19/19 09:50 11:28 17:58 WBC RBC Hgb Hct MCV RDW Plt Count Lymph % (Auto) Miller % (Auto) Lymph # Miller # Seg Neutrophils % Seg Neuts % (Manual) Lymphocytes % (Manual) Monocytes % (Manual) Nucleated RBC % Seg Neutrophils # Seg Neutrophils # Man Lymphocytes # (Manual) Monocytes # (Manual) PT INR D-Dimer Heparin Anti-Xa Level POC ABG pH 7.250 L ABG pH POC ABG pCO2 52.6 H POC ABG pO2 ABG pO2 ABG HCO3 ABG O2 Saturation ABG Base Excess ABG Hemoglobin Oxyhemoglobin Sodium Potassium Chloride Carbon Dioxide BUN Creatinine Glucose POC Glucose 160 H Lactic Acid Calcium Ionized Calcium Phosphorus Magnesium Iron TIBC Ferritin Total Bilirubin Direct Bilirubin AST ALT Alkaline Phosphatase Total Creatine Kinase 94158 H CK-MB (CK-2) Troponin T C-Reactive Protein Total Protein Albumin Triglycerides LDL Cholesterol Direct HDL Cholesterol Free T4 PTH Intact Urine WBC (Auto) Urine Creatinine Salicylates Acetaminophen Crossmatch 03/19/19 03/19/19 03/20/19 19:48 21:03 02:16 WBC RBC Hgb Hct MCV RDW Plt Count Lymph % (Auto) Miller % (Auto) Lymph # Miller # Seg Neutrophils % Seg Neuts % (Manual) Lymphocytes % (Manual) Monocytes % (Manual) Nucleated RBC % Seg Neutrophils # Seg Neutrophils # Man Lymphocytes # (Manual) Monocytes # (Manual) PT INR D-Dimer Heparin Anti-Xa Level POC ABG pH 7.279 L ABG pH POC ABG pCO2 50.3 H POC ABG pO2 129 H ABG pO2 ABG HCO3 ABG O2 Saturation ABG Base Excess ABG Hemoglobin Oxyhemoglobin Sodium Potassium Chloride Carbon Dioxide BUN Creatinine Glucose POC Glucose 119 H 119 H Lactic Acid Calcium Ionized Calcium Phosphorus Magnesium Iron TIBC Ferritin Total Bilirubin Direct Bilirubin AST ALT Alkaline Phosphatase Total Creatine Kinase CK-MB (CK-2) Troponin T C-Reactive Protein Total Protein Albumin Triglycerides LDL Cholesterol Direct HDL Cholesterol Free T4 PTH Intact Urine WBC (Auto) Urine Creatinine Salicylates Acetaminophen Crossmatch 03/20/19 03/20/19 03/20/19 04:23 05:05 09:30 WBC 36.3 H RBC Hgb Hct MCV RDW 15.5 H Plt Count 29 L Lymph % (Auto) Miller % (Auto) Lymph # Miller # Seg Neutrophils % Seg Neuts % (Manual) Lymphocytes % (Manual) Monocytes % (Manual) Nucleated RBC % Seg Neutrophils # Seg Neutrophils # Man Lymphocytes # (Manual) Monocytes # (Manual) PT INR D-Dimer Heparin Anti-Xa Level POC ABG pH ABG pH POC ABG pCO2 POC ABG pO2 280 H ABG pO2 ABG HCO3 ABG O2 Saturation ABG Base Excess ABG Hemoglobin Oxyhemoglobin Sodium Potassium Chloride Carbon Dioxide BUN Creatinine Glucose POC Glucose 115 H Lactic Acid Calcium Ionized Calcium Phosphorus Magnesium Iron TIBC Ferritin Total Bilirubin Direct Bilirubin AST ALT Alkaline Phosphatase Total Creatine Kinase CK-MB (CK-2) Troponin T C-Reactive Protein Total Protein Albumin Triglycerides LDL Cholesterol Direct HDL Cholesterol Free T4 PTH Intact Urine WBC (Auto) Urine Creatinine Salicylates Acetaminophen Crossmatch 03/20/19 03/20/19 03/20/19 09:30 09:30 11:34 WBC RBC Hgb Hct MCV RDW Plt Count Lymph % (Auto) Miller % (Auto) Lymph # Miller # Seg Neutrophils % Seg Neuts % (Manual) Lymphocytes % (Manual) Monocytes % (Manual) Nucleated RBC % Seg Neutrophils # Seg Neutrophils # Man Lymphocytes # (Manual) Monocytes # (Manual) PT INR D-Dimer Heparin Anti-Xa Level POC ABG pH ABG pH POC ABG pCO2 POC ABG pO2 ABG pO2 ABG HCO3 ABG O2 Saturation ABG Base Excess ABG Hemoglobin Oxyhemoglobin Sodium 131 L Potassium Chloride 92.3 L Carbon Dioxide 20 L BUN 68 H Creatinine 6.1 H Glucose 164 H POC Glucose 141 H Lactic Acid Calcium 5.3 L* Ionized Calcium Phosphorus Magnesium Iron TIBC Ferritin Total Bilirubin 9.50 H Direct Bilirubin AST 381 H ALT 116 H Alkaline Phosphatase 255 H Total Creatine Kinase 91989 H CK-MB (CK-2) Troponin T C-Reactive Protein Total Protein 5.1 L Albumin 2.3 L Triglycerides LDL Cholesterol Direct HDL Cholesterol Free T4 PTH Intact Urine WBC (Auto) Urine Creatinine Salicylates Acetaminophen Crossmatch 03/20/19 03/20/19 03/20/19 14:41 14:45 18:50 WBC RBC Hgb Hct MCV RDW Plt Count Lymph % (Auto) Miller % (Auto) Lymph # Miller # Seg Neutrophils % Seg Neuts % (Manual) Lymphocytes % (Manual) Monocytes % (Manual) Nucleated RBC % Seg Neutrophils # Seg Neutrophils # Man Lymphocytes # (Manual) Monocytes # (Manual) PT INR D-Dimer Heparin Anti-Xa Level POC ABG pH ABG pH POC ABG pCO2 POC ABG pO2 ABG pO2 ABG HCO3 ABG O2 Saturation ABG Base Excess ABG Hemoglobin Oxyhemoglobin Sodium Potassium Chloride Carbon Dioxide BUN Creatinine Glucose POC Glucose 117 H Lactic Acid 2.90 H* Calcium Ionized Calcium Phosphorus Magnesium Iron TIBC Ferritin Total Bilirubin Direct Bilirubin AST ALT Alkaline Phosphatase Total Creatine Kinase CK-MB (CK-2) Troponin T C-Reactive Protein 13.30 H Total Protein Albumin Triglycerides LDL Cholesterol Direct HDL Cholesterol Free T4 PTH Intact Urine WBC (Auto) Urine Creatinine Salicylates Acetaminophen Crossmatch 03/20/19 03/21/19 03/21/19 21:55 04:26 04:26 WBC 37.8 H RBC Hgb Hct MCV RDW 15.4 H Plt Count 36 L Lymph % (Auto) Miller % (Auto) Lymph # Miller # Seg Neutrophils % Seg Neuts % (Manual) 93.0 H Lymphocytes % (Manual) 3.0 L Monocytes % (Manual) Nucleated RBC % 1.0 H Seg Neutrophils # 34.6 H Seg Neutrophils # Man 35.2 H Lymphocytes # (Manual) 1.1 L Monocytes # (Manual) PT INR D-Dimer Heparin Anti-Xa Level POC ABG pH ABG pH POC ABG pCO2 POC ABG pO2 ABG pO2 ABG HCO3 ABG O2 Saturation ABG Base Excess ABG Hemoglobin Oxyhemoglobin Sodium 131 L Potassium Chloride 90.7 L Carbon Dioxide 21 L BUN 69 H Creatinine 5.7 H Glucose 170 H POC Glucose 128 H Lactic Acid Calcium 6.1 L D Ionized Calcium Phosphorus Magnesium Iron TIBC Ferritin Total Bilirubin 9.50 H Direct Bilirubin AST 308 H ALT 124 H Alkaline Phosphatase 327 H Total Creatine Kinase 69097 H CK-MB (CK-2) Troponin T C-Reactive Protein Total Protein 5.7 L Albumin 2.6 L Triglycerides LDL Cholesterol Direct HDL Cholesterol Free T4 PTH Intact Urine WBC (Auto) Urine Creatinine Salicylates Acetaminophen Crossmatch 03/21/19 03/21/19 03/21/19 05:17 05:39 08:29 WBC RBC Hgb Hct MCV RDW Plt Count Lymph % (Auto) Miller % (Auto) Lymph # Miller # Seg Neutrophils % Seg Neuts % (Manual) Lymphocytes % (Manual) Monocytes % (Manual) Nucleated RBC % Seg Neutrophils # Seg Neutrophils # Man Lymphocytes # (Manual) Monocytes # (Manual) PT INR D-Dimer Heparin Anti-Xa Level POC ABG pH ABG pH POC ABG pCO2 POC ABG pO2 209 H ABG pO2 ABG HCO3 ABG O2 Saturation ABG Base Excess ABG Hemoglobin Oxyhemoglobin Sodium Potassium Chloride Carbon Dioxide BUN Creatinine Glucose POC Glucose 145 H Lactic Acid Calcium Ionized Calcium Phosphorus Magnesium Iron TIBC Ferritin Total Bilirubin Direct Bilirubin AST ALT Alkaline Phosphatase Total Creatine Kinase 81071 H CK-MB (CK-2) Troponin T C-Reactive Protein Total Protein Albumin Triglycerides LDL Cholesterol Direct HDL Cholesterol Free T4 PTH Intact Urine WBC (Auto) Urine Creatinine Salicylates Acetaminophen Crossmatch 03/21/19 03/21/19 03/21/19 08:29 11:43 12:00 WBC RBC Hgb Hct MCV RDW Plt Count Lymph % (Auto) Miller % (Auto) Lymph # Miller # Seg Neutrophils % Seg Neuts % (Manual) Lymphocytes % (Manual) Monocytes % (Manual) Nucleated RBC % Seg Neutrophils # Seg Neutrophils # Man Lymphocytes # (Manual) Monocytes # (Manual) PT INR D-Dimer Heparin Anti-Xa Level POC ABG pH ABG pH POC ABG pCO2 POC ABG pO2 ABG pO2 ABG HCO3 ABG O2 Saturation ABG Base Excess ABG Hemoglobin Oxyhemoglobin Sodium Potassium Chloride Carbon Dioxide BUN Creatinine Glucose POC Glucose 123 H Lactic Acid 2.60 H* 2.20 H* Calcium Ionized Calcium Phosphorus Magnesium Iron TIBC Ferritin Total Bilirubin Direct Bilirubin AST ALT Alkaline Phosphatase Total Creatine Kinase CK-MB (CK-2) Troponin T C-Reactive Protein Total Protein Albumin Triglycerides LDL Cholesterol Direct HDL Cholesterol Free T4 PTH Intact Urine WBC (Auto) Urine Creatinine Salicylates Acetaminophen Crossmatch 03/21/19 03/21/19 03/21/19 14:11 18:28 19:32 WBC RBC Hgb Hct MCV RDW Plt Count Lymph % (Auto) Miller % (Auto) Lymph # Miller # Seg Neutrophils % Seg Neuts % (Manual) Lymphocytes % (Manual) Monocytes % (Manual) Nucleated RBC % Seg Neutrophils # Seg Neutrophils # Man Lymphocytes # (Manual) Monocytes # (Manual) PT INR D-Dimer Heparin Anti-Xa Level POC ABG pH 7.293 L ABG pH POC ABG pCO2 POC ABG pO2 ABG pO2 ABG HCO3 ABG O2 Saturation ABG Base Excess ABG Hemoglobin Oxyhemoglobin Sodium Potassium Chloride Carbon Dioxide BUN Creatinine Glucose POC Glucose 153 H Lactic Acid 2.10 H* Calcium Ionized Calcium Phosphorus Magnesium Iron TIBC Ferritin Total Bilirubin Direct Bilirubin AST ALT Alkaline Phosphatase Total Creatine Kinase CK-MB (CK-2) Troponin T C-Reactive Protein Total Protein Albumin Triglycerides LDL Cholesterol Direct HDL Cholesterol Free T4 PTH Intact Urine WBC (Auto) Urine Creatinine Salicylates Acetaminophen Crossmatch 03/21/19 03/22/19 03/22/19 23:38 05:08 05:51 WBC RBC Hgb Hct MCV RDW Plt Count Lymph % (Auto) Miller % (Auto) Lymph # Miller # Seg Neutrophils % Seg Neuts % (Manual) Lymphocytes % (Manual) Monocytes % (Manual) Nucleated RBC % Seg Neutrophils # Seg Neutrophils # Man Lymphocytes # (Manual) Monocytes # (Manual) PT INR D-Dimer Heparin Anti-Xa Level POC ABG pH 7.283 L ABG pH POC ABG pCO2 POC ABG pO2 53 L ABG pO2 ABG HCO3 ABG O2 Saturation ABG Base Excess ABG Hemoglobin Oxyhemoglobin Sodium Potassium Chloride Carbon Dioxide BUN Creatinine Glucose POC Glucose 149 H 131 H Lactic Acid Calcium Ionized Calcium Phosphorus Magnesium Iron TIBC Ferritin Total Bilirubin Direct Bilirubin AST ALT Alkaline Phosphatase Total Creatine Kinase CK-MB (CK-2) Troponin T C-Reactive Protein Total Protein Albumin Triglycerides LDL Cholesterol Direct HDL Cholesterol Free T4 PTH Intact Urine WBC (Auto) Urine Creatinine Salicylates Acetaminophen Crossmatch 03/22/19 03/22/19 03/22/19 08:00 08:00 18:19 WBC 36.7 H RBC Hgb 11.0 L Hct 33.5 L MCV RDW 15.5 H Plt Count 43 L Lymph % (Auto) Miller % (Auto) Lymph # Miller # Seg Neutrophils % Seg Neuts % (Manual) 87.0 H Lymphocytes % (Manual) 7.0 L Monocytes % (Manual) Nucleated RBC % Seg Neutrophils # Seg Neutrophils # Man 31.9 H Lymphocytes # (Manual) Monocytes # (Manual) PT INR D-Dimer Heparin Anti-Xa Level POC ABG pH ABG pH POC ABG pCO2 46.4 H POC ABG pO2 108 H ABG pO2 ABG HCO3 ABG O2 Saturation ABG Base Excess ABG Hemoglobin Oxyhemoglobin Sodium 132 L Potassium 5.6 H Chloride 89.6 L Carbon Dioxide 20 L BUN 101 H Creatinine 7.4 H Glucose 124 H POC Glucose Lactic Acid Calcium 5.2 L* Ionized Calcium Phosphorus Magnesium Iron TIBC Ferritin Total Bilirubin 2.80 H Direct Bilirubin AST 119 H ALT 86 H Alkaline Phosphatase 245 H Total Creatine Kinase CK-MB (CK-2) Troponin T C-Reactive Protein Total Protein 5.6 L Albumin 2.5 L Triglycerides LDL Cholesterol Direct HDL Cholesterol Free T4 PTH Intact Urine WBC (Auto) Urine Creatinine Salicylates Acetaminophen Crossmatch 03/22/19 03/23/19 03/23/19 20:37 04:49 05:28 WBC 35.9 H RBC Hgb 10.8 L Hct 33.2 L MCV RDW 15.5 H Plt Count 49 L Lymph % (Auto) Miller % (Auto) Lymph # Miller # Seg Neutrophils % Seg Neuts % (Manual) 81.0 H Lymphocytes % (Manual) 3.5 L Monocytes % (Manual) Nucleated RBC % Seg Neutrophils # Seg Neutrophils # Man 29.1 H Lymphocytes # (Manual) Monocytes # (Manual) 1.4 H PT INR D-Dimer Heparin Anti-Xa Level POC ABG pH 7.296 L ABG pH POC ABG pCO2 46.2 H POC ABG pO2 ABG pO2 ABG HCO3 ABG O2 Saturation ABG Base Excess ABG Hemoglobin Oxyhemoglobin Sodium 129 L Potassium 5.2 H Chloride 91.1 L Carbon Dioxide BUN 91 H Creatinine 6.6 H Glucose 190 H POC Glucose Lactic Acid Calcium 5.3 L* Ionized Calcium Phosphorus Magnesium Iron TIBC Ferritin Total Bilirubin 1.80 H Direct Bilirubin AST 80 H ALT 62 H Alkaline Phosphatase 209 H Total Creatine Kinase 9758 H CK-MB (CK-2) Troponin T C-Reactive Protein Total Protein 5.2 L Albumin 2.2 L Triglycerides LDL Cholesterol Direct HDL Cholesterol Free T4 PTH Intact Urine WBC (Auto) Urine Creatinine Salicylates Acetaminophen Crossmatch 03/23/19 03/23/19 03/23/19 05:28 05:31 11:33 WBC 29.7 H RBC 3.59 L Hgb 10.1 L Hct 31.1 L MCV RDW 15.4 H Plt Count 47 L Lymph % (Auto) Miller % (Auto) Lymph # Miller # Seg Neutrophils % Seg Neuts % (Manual) 89.0 H Lymphocytes % (Manual) 6.0 L Monocytes % (Manual) Nucleated RBC % 1.0 H Seg Neutrophils # Seg Neutrophils # Man 26.4 H Lymphocytes # (Manual) Monocytes # (Manual) PT INR D-Dimer Heparin Anti-Xa Level POC ABG pH ABG pH POC ABG pCO2 POC ABG pO2 ABG pO2 ABG HCO3 ABG O2 Saturation ABG Base Excess ABG Hemoglobin Oxyhemoglobin Sodium Potassium Chloride Carbon Dioxide BUN Creatinine Glucose POC Glucose 122 H 113 H Lactic Acid Calcium Ionized Calcium Phosphorus Magnesium Iron TIBC Ferritin Total Bilirubin Direct Bilirubin AST ALT Alkaline Phosphatase Total Creatine Kinase CK-MB (CK-2) Troponin T C-Reactive Protein Total Protein Albumin Triglycerides LDL Cholesterol Direct HDL Cholesterol Free T4 PTH Intact Urine WBC (Auto) Urine Creatinine Salicylates Acetaminophen Crossmatch 03/23/19 03/24/19 03/24/19 17:47 00:00 04:50 WBC 35.0 H RBC Hgb 10.4 L Hct 32.4 L MCV RDW Plt Count 60 L Lymph % (Auto) Miller % (Auto) Lymph # Miller # Seg Neutrophils % Seg Neuts % (Manual) 93.0 H Lymphocytes % (Manual) 5.0 L Monocytes % (Manual) Nucleated RBC % 7.0 H Seg Neutrophils # Seg Neutrophils # Man 32.6 H Lymphocytes # (Manual) Monocytes # (Manual) PT INR D-Dimer Heparin Anti-Xa Level POC ABG pH ABG pH POC ABG pCO2 POC ABG pO2 ABG pO2 ABG HCO3 ABG O2 Saturation ABG Base Excess ABG Hemoglobin Oxyhemoglobin Sodium Potassium Chloride Carbon Dioxide BUN Creatinine Glucose POC Glucose 111 H 108 H Lactic Acid Calcium Ionized Calcium Phosphorus Magnesium Iron TIBC Ferritin Total Bilirubin Direct Bilirubin AST ALT Alkaline Phosphatase Total Creatine Kinase CK-MB (CK-2) Troponin T C-Reactive Protein Total Protein Albumin Triglycerides LDL Cholesterol Direct HDL Cholesterol Free T4 PTH Intact Urine WBC (Auto) Urine Creatinine Salicylates Acetaminophen Crossmatch 03/24/19 03/24/19 03/24/19 04:50 05:06 12:55 WBC RBC Hgb Hct MCV RDW Plt Count Lymph % (Auto) Miller % (Auto) Lymph # Miller # Seg Neutrophils % Seg Neuts % (Manual) Lymphocytes % (Manual) Monocytes % (Manual) Nucleated RBC % Seg Neutrophils # Seg Neutrophils # Man Lymphocytes # (Manual) Monocytes # (Manual) PT INR D-Dimer Heparin Anti-Xa Level POC ABG pH ABG pH POC ABG pCO2 POC ABG pO2 ABG pO2 ABG HCO3 ABG O2 Saturation ABG Base Excess ABG Hemoglobin Oxyhemoglobin Sodium 134 L Potassium 5.1 H Chloride 95.3 L Carbon Dioxide 21 L BUN 85 H Creatinine 6.4 H Glucose 109 H POC Glucose 112 H 110 H Lactic Acid Calcium 5.8 L* Ionized Calcium Phosphorus Magnesium Iron TIBC Ferritin Total Bilirubin Direct Bilirubin AST ALT Alkaline Phosphatase Total Creatine Kinase 5747 H CK-MB (CK-2) Troponin T C-Reactive Protein Total Protein Albumin Triglycerides LDL Cholesterol Direct HDL Cholesterol Free T4 PTH Intact Urine WBC (Auto) Urine Creatinine Salicylates Acetaminophen Crossmatch 03/24/19 03/25/19 03/25/19 23:29 05:00 05:00 WBC RBC Hgb Hct MCV RDW Plt Count Lymph % (Auto) Miller % (Auto) Lymph # Miller # Seg Neutrophils % Seg Neuts % (Manual) Lymphocytes % (Manual) Monocytes % (Manual) Nucleated RBC % Seg Neutrophils # Seg Neutrophils # Man Lymphocytes # (Manual) Monocytes # (Manual) PT INR D-Dimer Heparin Anti-Xa Level POC ABG pH ABG pH POC ABG pCO2 POC ABG pO2 ABG pO2 ABG HCO3 ABG O2 Saturation ABG Base Excess ABG Hemoglobin Oxyhemoglobin Sodium 133 L Potassium Chloride 94.0 L Carbon Dioxide 21 L BUN 81 H Creatinine 6.4 H Glucose POC Glucose 109 H Lactic Acid Calcium 5.5 L* Ionized Calcium Phosphorus Magnesium Iron TIBC Ferritin Total Bilirubin Direct Bilirubin AST 80 H ALT Alkaline Phosphatase 202 H Total Creatine Kinase 3589 H CK-MB (CK-2) Troponin T C-Reactive Protein Total Protein 5.3 L Albumin 2.4 L Triglycerides LDL Cholesterol Direct HDL Cholesterol Free T4 PTH Intact 329.9 H Urine WBC (Auto) Urine Creatinine Salicylates Acetaminophen Crossmatch 03/25/19 03/25/19 03/26/19 05:00 06:30 04:30 WBC 23.3 H RBC 3.61 L Hgb 10.2 L Hct 31.2 L MCV RDW Plt Count 57 L Lymph % (Auto) Miller % (Auto) Lymph # Miller # Seg Neutrophils % Seg Neuts % (Manual) 92.0 H Lymphocytes % (Manual) 6.0 L Monocytes % (Manual) Nucleated RBC % Seg Neutrophils # Seg Neutrophils # Man 21.4 H Lymphocytes # (Manual) Monocytes # (Manual) PT INR D-Dimer Heparin Anti-Xa Level POC ABG pH ABG pH 7.326 L POC ABG pCO2 POC ABG pO2 ABG pO2 109.5 H 137.4 H ABG HCO3 18.8 L 18.6 L ABG O2 Saturation ABG Base Excess -4.4 L -6.8 L ABG Hemoglobin 10.1 L 9.9 L Oxyhemoglobin Sodium Potassium Chloride Carbon Dioxide BUN Creatinine Glucose POC Glucose Lactic Acid Calcium Ionized Calcium Phosphorus Magnesium Iron TIBC Ferritin Total Bilirubin Direct Bilirubin AST ALT Alkaline Phosphatase Total Creatine Kinase CK-MB (CK-2) Troponin T C-Reactive Protein Total Protein Albumin Triglycerides LDL Cholesterol Direct HDL Cholesterol Free T4 PTH Intact Urine WBC (Auto) Urine Creatinine Salicylates Acetaminophen Crossmatch 03/26/19 03/26/19 03/26/19 23:22 Unknown Unknown WBC 19.5 H RBC 3.44 L Hgb 9.8 L Hct 29.9 L MCV RDW Plt Count 85 L Lymph % (Auto) Miller % (Auto) Lymph # Miller # Seg Neutrophils % Seg Neuts % (Manual) 95.0 H Lymphocytes % (Manual) 3.0 L Monocytes % (Manual) Nucleated RBC % Seg Neutrophils # Seg Neutrophils # Man 18.5 H Lymphocytes # (Manual) 0.6 L Monocytes # (Manual) PT INR D-Dimer Heparin Anti-Xa Level POC ABG pH ABG pH POC ABG pCO2 POC ABG pO2 ABG pO2 ABG HCO3 ABG O2 Saturation ABG Base Excess ABG Hemoglobin Oxyhemoglobin Sodium 135 L Potassium 5.2 H D Chloride 92.2 L Carbon Dioxide 18 L BUN 109 H Creatinine 8.5 H Glucose 117 H POC Glucose 69 L Lactic Acid Calcium 4.5 L* D Ionized Calcium Phosphorus Magnesium Iron TIBC Ferritin Total Bilirubin Direct Bilirubin AST ALT Alkaline Phosphatase Total Creatine Kinase 4527 H CK-MB (CK-2) Troponin T C-Reactive Protein Total Protein Albumin Triglycerides LDL Cholesterol Direct HDL Cholesterol Free T4 PTH Intact Urine WBC (Auto) Urine Creatinine Salicylates Acetaminophen Crossmatch 03/27/19 03/27/19 03/27/19 04:30 04:30 09:00 WBC 19.2 H RBC 3.42 L Hgb 9.9 L Hct 30.0 L MCV RDW Plt Count 84 L Lymph % (Auto) Miller % (Auto) Lymph # Miller # Seg Neutrophils % Seg Neuts % (Manual) Lymphocytes % (Manual) Monocytes % (Manual) Nucleated RBC % Seg Neutrophils # Seg Neutrophils # Man Lymphocytes # (Manual) Monocytes # (Manual) PT INR D-Dimer Heparin Anti-Xa Level POC ABG pH ABG pH POC ABG pCO2 POC ABG pO2 ABG pO2 ABG HCO3 ABG O2 Saturation ABG Base Excess ABG Hemoglobin Oxyhemoglobin Sodium 135 L Potassium Chloride 93.5 L Carbon Dioxide BUN 84 H Creatinine 7.1 H Glucose POC Glucose Lactic Acid Calcium 5.0 L* Ionized Calcium Phosphorus Magnesium Iron TIBC Ferritin Total Bilirubin Direct Bilirubin AST 78 H ALT Alkaline Phosphatase 135 H Total Creatine Kinase 4677 H CK-MB (CK-2) Troponin T C-Reactive Protein Total Protein 4.8 L Albumin 2.3 L Triglycerides 409 H LDL Cholesterol Direct HDL Cholesterol Free T4 PTH Intact Urine WBC (Auto) Urine Creatinine Salicylates Acetaminophen Crossmatch 03/27/19 03/27/19 03/27/19 12:37 14:15 14:15 WBC RBC Hgb 9.7 L Hct 29.5 L MCV RDW Plt Count 87 L Lymph % (Auto) Miller % (Auto) Lymph # Miller # Seg Neutrophils % Seg Neuts % (Manual) Lymphocytes % (Manual) Monocytes % (Manual) Nucleated RBC % Seg Neutrophils # Seg Neutrophils # Man Lymphocytes # (Manual) Monocytes # (Manual) PT 15.9 H INR 1.30 H D-Dimer Heparin Anti-Xa Level POC ABG pH ABG pH POC ABG pCO2 POC ABG pO2 ABG pO2 ABG HCO3 ABG O2 Saturation ABG Base Excess ABG Hemoglobin Oxyhemoglobin Sodium Potassium Chloride Carbon Dioxide BUN Creatinine Glucose POC Glucose 129 H Lactic Acid Calcium Ionized Calcium Phosphorus Magnesium Iron TIBC Ferritin Total Bilirubin Direct Bilirubin AST ALT Alkaline Phosphatase Total Creatine Kinase CK-MB (CK-2) Troponin T C-Reactive Protein Total Protein Albumin Triglycerides LDL Cholesterol Direct HDL Cholesterol Free T4 PTH Intact Urine WBC (Auto) Urine Creatinine Salicylates Acetaminophen Crossmatch 03/27/19 03/27/19 03/27/19 18:00 19:22 19:23 WBC RBC Hgb Hct MCV RDW Plt Count Lymph % (Auto) Miller % (Auto) Lymph # Miller # Seg Neutrophils % Seg Neuts % (Manual) Lymphocytes % (Manual) Monocytes % (Manual) Nucleated RBC % Seg Neutrophils # Seg Neutrophils # Man Lymphocytes # (Manual) Monocytes # (Manual) PT INR D-Dimer Heparin Anti-Xa Level < 0.10 L POC ABG pH ABG pH POC ABG pCO2 POC ABG pO2 ABG pO2 ABG HCO3 ABG O2 Saturation ABG Base Excess ABG Hemoglobin Oxyhemoglobin Sodium Potassium Chloride Carbon Dioxide BUN Creatinine Glucose POC Glucose 121 H Lactic Acid Calcium Ionized Calcium Phosphorus Magnesium Iron TIBC Ferritin Total Bilirubin Direct Bilirubin AST ALT Alkaline Phosphatase Total Creatine Kinase 4517 H CK-MB (CK-2) Troponin T C-Reactive Protein Total Protein Albumin Triglycerides LDL Cholesterol Direct HDL Cholesterol Free T4 PTH Intact Urine WBC (Auto) Urine Creatinine Salicylates Acetaminophen Crossmatch 03/27/19 03/27/19 03/28/19 22:10 23:52 03:49 WBC RBC Hgb Hct MCV RDW Plt Count Lymph % (Auto) Miller % (Auto) Lymph # Miller # Seg Neutrophils % Seg Neuts % (Manual) Lymphocytes % (Manual) Monocytes % (Manual) Nucleated RBC % Seg Neutrophils # Seg Neutrophils # Man Lymphocytes # (Manual) Monocytes # (Manual) PT INR D-Dimer Heparin Anti-Xa Level POC ABG pH 7.338 L ABG pH POC ABG pCO2 33.1 L POC ABG pO2 ABG pO2 ABG HCO3 ABG O2 Saturation ABG Base Excess ABG Hemoglobin Oxyhemoglobin Sodium Potassium Chloride Carbon Dioxide BUN Creatinine Glucose POC Glucose 113 H 117 H Lactic Acid Calcium Ionized Calcium Phosphorus Magnesium Iron TIBC Ferritin Total Bilirubin Direct Bilirubin AST ALT Alkaline Phosphatase Total Creatine Kinase CK-MB (CK-2) Troponin T C-Reactive Protein Total Protein Albumin Triglycerides LDL Cholesterol Direct HDL Cholesterol Free T4 PTH Intact Urine WBC (Auto) Urine Creatinine Salicylates Acetaminophen Crossmatch 03/28/19 03/28/19 03/28/19 05:13 05:13 06:18 WBC RBC Hgb Hct MCV RDW Plt Count Lymph % (Auto) Miller % (Auto) Lymph # Miller # Seg Neutrophils % Seg Neuts % (Manual) Lymphocytes % (Manual) Monocytes % (Manual) Nucleated RBC % Seg Neutrophils # Seg Neutrophils # Man Lymphocytes # (Manual) Monocytes # (Manual) PT INR D-Dimer Heparin Anti-Xa Level 0.23 L POC ABG pH ABG pH POC ABG pCO2 POC ABG pO2 ABG pO2 ABG HCO3 ABG O2 Saturation ABG Base Excess ABG Hemoglobin Oxyhemoglobin Sodium 135 L Potassium 5.5 H D Chloride 95.1 L Carbon Dioxide 16 L D BUN 129 H Creatinine 9.3 H Glucose 158 H POC Glucose 202 H Lactic Acid Calcium 4.0 L* D Ionized Calcium Phosphorus 12.40 H Magnesium Iron TIBC Ferritin Total Bilirubin Direct Bilirubin AST ALT Alkaline Phosphatase Total Creatine Kinase 4266 H CK-MB (CK-2) Troponin T C-Reactive Protein Total Protein Albumin Triglycerides LDL Cholesterol Direct HDL Cholesterol Free T4 PTH Intact Urine WBC (Auto) Urine Creatinine Salicylates Acetaminophen Crossmatch 03/28/19 03/28/19 03/28/19 08:25 10:00 12:00 WBC RBC Hgb 4.9 L* D Hct 15.4 L* D MCV RDW Plt Count Lymph % (Auto) Miller % (Auto) Lymph # Miller # Seg Neutrophils % Seg Neuts % (Manual) Lymphocytes % (Manual) Monocytes % (Manual) Nucleated RBC % Seg Neutrophils # Seg Neutrophils # Man Lymphocytes # (Manual) Monocytes # (Manual) PT 17.9 H INR 1.52 H D-Dimer 4845.98 H Heparin Anti-Xa Level POC ABG pH ABG pH POC ABG pCO2 POC ABG pO2 ABG pO2 ABG HCO3 ABG O2 Saturation ABG Base Excess ABG Hemoglobin Oxyhemoglobin Sodium Potassium Chloride Carbon Dioxide BUN Creatinine Glucose POC Glucose Lactic Acid Calcium Ionized Calcium Phosphorus Magnesium Iron TIBC Ferritin Total Bilirubin Direct Bilirubin AST ALT Alkaline Phosphatase Total Creatine Kinase CK-MB (CK-2) Troponin T C-Reactive Protein Total Protein Albumin Triglycerides LDL Cholesterol Direct HDL Cholesterol Free T4 PTH Intact Urine WBC (Auto) Urine Creatinine Salicylates Acetaminophen Crossmatch See Detail 03/28/19 03/28/19 03/28/19 12:28 14:10 17:43 WBC RBC Hgb 5.9 L* Hct 18.3 L* MCV RDW Plt Count Lymph % (Auto) Miller % (Auto) Lymph # Miller # Seg Neutrophils % Seg Neuts % (Manual) Lymphocytes % (Manual) Monocytes % (Manual) Nucleated RBC % Seg Neutrophils # Seg Neutrophils # Man Lymphocytes # (Manual) Monocytes # (Manual) PT INR D-Dimer Heparin Anti-Xa Level POC ABG pH ABG pH POC ABG pCO2 POC ABG pO2 ABG pO2 ABG HCO3 ABG O2 Saturation ABG Base Excess ABG Hemoglobin Oxyhemoglobin Sodium Potassium Chloride Carbon Dioxide BUN Creatinine Glucose POC Glucose 153 H 159 H Lactic Acid Calcium Ionized Calcium Phosphorus Magnesium Iron TIBC Ferritin Total Bilirubin Direct Bilirubin AST ALT Alkaline Phosphatase Total Creatine Kinase CK-MB (CK-2) Troponin T C-Reactive Protein Total Protein Albumin Triglycerides LDL Cholesterol Direct HDL Cholesterol Free T4 PTH Intact Urine WBC (Auto) Urine Creatinine Salicylates Acetaminophen Crossmatch 03/28/19 03/28/19 03/28/19 18:10 Unknown 23:59 WBC 24.8 H RBC 3.42 L Hgb 10.2 L D Hct 31.1 L D MCV RDW 15.4 H Plt Count 54 L Lymph % (Auto) Miller % (Auto) Lymph # Miller # Seg Neutrophils % Seg Neuts % (Manual) 91.0 H Lymphocytes % (Manual) 8.0 L Monocytes % (Manual) Nucleated RBC % Seg Neutrophils # Seg Neutrophils # Man 22.6 H Lymphocytes # (Manual) Monocytes # (Manual) PT INR D-Dimer Heparin Anti-Xa Level POC ABG pH ABG pH POC ABG pCO2 POC ABG pO2 ABG pO2 ABG HCO3 ABG O2 Saturation ABG Base Excess ABG Hemoglobin Oxyhemoglobin Sodium Potassium 5.7 H Chloride Carbon Dioxide BUN Creatinine Glucose POC Glucose 107 H Lactic Acid Calcium Ionized Calcium Phosphorus Magnesium Iron TIBC Ferritin Total Bilirubin Direct Bilirubin AST ALT Alkaline Phosphatase Total Creatine Kinase CK-MB (CK-2) Troponin T C-Reactive Protein Total Protein Albumin Triglycerides LDL Cholesterol Direct HDL Cholesterol Free T4 PTH Intact Urine WBC (Auto) Urine Creatinine Salicylates Acetaminophen Crossmatch 03/29/19 03/29/19 03/29/19 04:29 05:46 06:22 WBC RBC Hgb 8.6 L Hct 25.7 L MCV RDW Plt Count 93 L Lymph % (Auto) Miller % (Auto) Lymph # Miller # Seg Neutrophils % Seg Neuts % (Manual) Lymphocytes % (Manual) Monocytes % (Manual) Nucleated RBC % Seg Neutrophils # Seg Neutrophils # Man Lymphocytes # (Manual) Monocytes # (Manual) PT INR D-Dimer Heparin Anti-Xa Level POC ABG pH ABG pH POC ABG pCO2 32.2 L POC ABG pO2 ABG pO2 ABG HCO3 ABG O2 Saturation ABG Base Excess ABG Hemoglobin Oxyhemoglobin Sodium Potassium Chloride Carbon Dioxide BUN Creatinine Glucose POC Glucose 113 H Lactic Acid Calcium Ionized Calcium Phosphorus Magnesium Iron TIBC Ferritin Total Bilirubin Direct Bilirubin AST ALT Alkaline Phosphatase Total Creatine Kinase CK-MB (CK-2) Troponin T C-Reactive Protein Total Protein Albumin Triglycerides LDL Cholesterol Direct HDL Cholesterol Free T4 PTH Intact Urine WBC (Auto) Urine Creatinine Salicylates Acetaminophen Crossmatch 03/29/19 03/29/19 03/29/19 06:22 06:22 06:22 WBC 23.2 H RBC 2.91 L Hgb 8.6 L Hct 25.8 L MCV RDW Plt Count 91 L Lymph % (Auto) Miller % (Auto) Lymph # Miller # Seg Neutrophils % Seg Neuts % (Manual) Lymphocytes % (Manual) Monocytes % (Manual) Nucleated RBC % Seg Neutrophils # Seg Neutrophils # Man Lymphocytes # (Manual) Monocytes # (Manual) PT INR D-Dimer Heparin Anti-Xa Level POC ABG pH ABG pH POC ABG pCO2 POC ABG pO2 ABG pO2 ABG HCO3 ABG O2 Saturation ABG Base Excess ABG Hemoglobin Oxyhemoglobin Sodium 133 L Potassium Chloride 93.8 L Carbon Dioxide 18 L BUN 109 H Creatinine 7.4 H Glucose 124 H POC Glucose Lactic Acid Calcium 4.6 L* Ionized Calcium Phosphorus Magnesium Iron TIBC Ferritin Total Bilirubin Direct Bilirubin AST ALT Alkaline Phosphatase Total Creatine Kinase 3401 H CK-MB (CK-2) Troponin T C-Reactive Protein Total Protein Albumin Triglycerides 309 H LDL Cholesterol Direct HDL Cholesterol Free T4 PTH Intact Urine WBC (Auto) Urine Creatinine Salicylates Acetaminophen Crossmatch 03/29/19 03/29/19 03/29/19 11:48 11:48 18:24 WBC RBC Hgb 7.8 L Hct 23.2 L MCV RDW Plt Count Lymph % (Auto) Miller % (Auto) Lymph # Miller # Seg Neutrophils % Seg Neuts % (Manual) Lymphocytes % (Manual) Monocytes % (Manual) Nucleated RBC % Seg Neutrophils # Seg Neutrophils # Man Lymphocytes # (Manual) Monocytes # (Manual) PT 15.3 H INR 1.24 H D-Dimer Heparin Anti-Xa Level POC ABG pH ABG pH POC ABG pCO2 POC ABG pO2 ABG pO2 ABG HCO3 ABG O2 Saturation ABG Base Excess ABG Hemoglobin Oxyhemoglobin Sodium Potassium Chloride Carbon Dioxide BUN Creatinine Glucose POC Glucose 122 H Lactic Acid Calcium Ionized Calcium Phosphorus Magnesium Iron TIBC Ferritin Total Bilirubin Direct Bilirubin AST ALT Alkaline Phosphatase Total Creatine Kinase CK-MB (CK-2) Troponin T C-Reactive Protein Total Protein Albumin Triglycerides LDL Cholesterol Direct HDL Cholesterol Free T4 PTH Intact Urine WBC (Auto) Urine Creatinine Salicylates Acetaminophen Crossmatch 03/30/19 03/30/19 03/30/19 00:40 04:31 05:04 WBC RBC Hgb 7.6 L Hct 23.0 L MCV RDW Plt Count Lymph % (Auto) Miller % (Auto) Lymph # Miller # Seg Neutrophils % Seg Neuts % (Manual) Lymphocytes % (Manual) Monocytes % (Manual) Nucleated RBC % Seg Neutrophils # Seg Neutrophils # Man Lymphocytes # (Manual) Monocytes # (Manual) PT INR D-Dimer Heparin Anti-Xa Level POC ABG pH 7.346 L ABG pH POC ABG pCO2 POC ABG pO2 62 L ABG pO2 ABG HCO3 ABG O2 Saturation ABG Base Excess ABG Hemoglobin Oxyhemoglobin Sodium Potassium Chloride Carbon Dioxide BUN 79 H Creatinine 6.4 H Glucose POC Glucose Lactic Acid Calcium 6.1 L D Ionized Calcium Phosphorus Magnesium Iron TIBC Ferritin Total Bilirubin Direct Bilirubin AST ALT Alkaline Phosphatase Total Creatine Kinase CK-MB (CK-2) Troponin T C-Reactive Protein Total Protein Albumin Triglycerides LDL Cholesterol Direct HDL Cholesterol Free T4 PTH Intact Urine WBC (Auto) Urine Creatinine Salicylates Acetaminophen Crossmatch 03/30/19 03/30/19 03/30/19 08:45 12:09 22:43 WBC 14.3 H RBC 2.33 L Hgb 7.0 L 7.4 L Hct 21.0 L 22.3 L MCV RDW 15.6 H Plt Count 135 L Lymph % (Auto) Miller % (Auto) Lymph # Miller # Seg Neutrophils % Seg Neuts % (Manual) Lymphocytes % (Manual) Monocytes % (Manual) Nucleated RBC % Seg Neutrophils # Seg Neutrophils # Man Lymphocytes # (Manual) Monocytes # (Manual) PT INR D-Dimer Heparin Anti-Xa Level POC ABG pH ABG pH POC ABG pCO2 POC ABG pO2 ABG pO2 ABG HCO3 ABG O2 Saturation ABG Base Excess ABG Hemoglobin Oxyhemoglobin Sodium Potassium Chloride Carbon Dioxide BUN Creatinine Glucose POC Glucose Lactic Acid Calcium Ionized Calcium 3.7 L Phosphorus Magnesium Iron TIBC Ferritin Total Bilirubin Direct Bilirubin AST ALT Alkaline Phosphatase Total Creatine Kinase CK-MB (CK-2) Troponin T C-Reactive Protein Total Protein Albumin Triglycerides LDL Cholesterol Direct HDL Cholesterol Free T4 PTH Intact Urine WBC (Auto) Urine Creatinine Salicylates Acetaminophen Crossmatch 03/30/19 03/30/19 03/31/19 23:38 Unknown 04:44 WBC 11.5 H RBC 2.40 L Hgb 7.3 L Hct 21.9 L MCV RDW 15.4 H Plt Count Lymph % (Auto) 10.6 L Miller % (Auto) Lymph # Miller # Seg Neutrophils % 81.7 H Seg Neuts % (Manual) Lymphocytes % (Manual) Monocytes % (Manual) Nucleated RBC % Seg Neutrophils # 9.4 H Seg Neutrophils # Man Lymphocytes # (Manual) Monocytes # (Manual) PT INR D-Dimer Heparin Anti-Xa Level POC ABG pH ABG pH POC ABG pCO2 POC ABG pO2 ABG pO2 ABG HCO3 ABG O2 Saturation ABG Base Excess ABG Hemoglobin Oxyhemoglobin Sodium Potassium Chloride Carbon Dioxide BUN Creatinine Glucose POC Glucose 155 H Lactic Acid Calcium Ionized Calcium Phosphorus Magnesium Iron TIBC Ferritin Total Bilirubin Direct Bilirubin 0.4 H AST 63 H ALT Alkaline Phosphatase Total Creatine Kinase CK-MB (CK-2) Troponin T C-Reactive Protein Total Protein 4.9 L Albumin 2.2 L Triglycerides LDL Cholesterol Direct HDL Cholesterol Free T4 PTH Intact Urine WBC (Auto) Urine Creatinine Salicylates Acetaminophen Crossmatch 1003/31/19 03/31/19 04:44 05:44 08:20 WBC RBC Hgb Hct MCV RDW Plt Count Lymph % (Auto) Miller % (Auto) Lymph # Miller # Seg Neutrophils % Seg Neuts % (Manual) Lymphocytes % (Manual) Monocytes % (Manual) Nucleated RBC % Seg Neutrophils # Seg Neutrophils # Man Lymphocytes # (Manual) Monocytes # (Manual) PT INR D-Dimer Heparin Anti-Xa Level POC ABG pH ABG pH POC ABG pCO2 53.5 H POC ABG pO2 62 L ABG pO2 ABG HCO3 ABG O2 Saturation ABG Base Excess ABG Hemoglobin Oxyhemoglobin Sodium 135 L Potassium Chloride 96.7 L Carbon Dioxide 19 L BUN 94 H Creatinine 7.8 H Glucose POC Glucose Lactic Acid Calcium 5.3 L* Ionized Calcium Phosphorus 8.20 H Magnesium Iron TIBC Ferritin Total Bilirubin Direct Bilirubin 0.4 H AST 60 H ALT Alkaline Phosphatase Total Creatine Kinase CK-MB (CK-2) Troponin T C-Reactive Protein Total Protein 4.8 L Albumin 2.1 L Triglycerides LDL Cholesterol Direct HDL Cholesterol Free T4 PTH Intact Urine WBC (Auto) Urine Creatinine Salicylates Acetaminophen Crossmatch 03/31/19 04/01/19 04/01/19 22:14 04:27 04:27 WBC RBC 2.60 L Hgb 8.0 L Hct 24.1 L MCV RDW 15.7 H Plt Count Lymph % (Auto) 7.9 L Miller % (Auto) Lymph # 0.7 L Miller # Seg Neutrophils % 83.6 H Seg Neuts % (Manual) Lymphocytes % (Manual) Monocytes % (Manual) Nucleated RBC % Seg Neutrophils # Seg Neutrophils # Man Lymphocytes # (Manual) Monocytes # (Manual) PT INR D-Dimer Heparin Anti-Xa Level POC ABG pH 7.286 L ABG pH POC ABG pCO2 54.7 H POC ABG pO2 179 H ABG pO2 ABG HCO3 ABG O2 Saturation ABG Base Excess ABG Hemoglobin Oxyhemoglobin Sodium Potassium Chloride Carbon Dioxide BUN 68 H Creatinine 6.6 H Glucose POC Glucose Lactic Acid Calcium 6.5 L D Ionized Calcium Phosphorus 7.30 H Magnesium Iron TIBC Ferritin Total Bilirubin Direct Bilirubin AST ALT Alkaline Phosphatase Total Creatine Kinase 1652 H CK-MB (CK-2) Troponin T C-Reactive Protein Total Protein Albumin Triglycerides LDL Cholesterol Direct HDL Cholesterol Free T4 PTH Intact Urine WBC (Auto) Urine Creatinine Salicylates Acetaminophen Crossmatch 04/01/19 04/01/19 04/01/19 05:14 05:37 18:37 WBC RBC Hgb Hct MCV RDW Plt Count Lymph % (Auto) Miller % (Auto) Lymph # Miller # Seg Neutrophils % Seg Neuts % (Manual) Lymphocytes % (Manual) Monocytes % (Manual) Nucleated RBC % Seg Neutrophils # Seg Neutrophils # Man Lymphocytes # (Manual) Monocytes # (Manual) PT INR D-Dimer Heparin Anti-Xa Level POC ABG pH 7.283 L ABG pH POC ABG pCO2 53.4 H POC ABG pO2 241 H ABG pO2 ABG HCO3 ABG O2 Saturation ABG Base Excess ABG Hemoglobin Oxyhemoglobin Sodium Potassium Chloride Carbon Dioxide BUN Creatinine Glucose POC Glucose 111 H 119 H Lactic Acid Calcium Ionized Calcium Phosphorus Magnesium Iron TIBC Ferritin Total Bilirubin Direct Bilirubin AST ALT Alkaline Phosphatase Total Creatine Kinase CK-MB (CK-2) Troponin T C-Reactive Protein Total Protein Albumin Triglycerides LDL Cholesterol Direct HDL Cholesterol Free T4 PTH Intact Urine WBC (Auto) Urine Creatinine Salicylates Acetaminophen Crossmatch 04/01/19 04/02/19 04/02/19 21:28 04:40 05:03 WBC RBC 2.36 L Hgb 7.2 L Hct 21.9 L MCV RDW 16.0 H Plt Count Lymph % (Auto) 10.8 L Miller % (Auto) Lymph # 0.8 L Miller # Seg Neutrophils % 80.3 H Seg Neuts % (Manual) Lymphocytes % (Manual) Monocytes % (Manual) Nucleated RBC % Seg Neutrophils # Seg Neutrophils # Man Lymphocytes # (Manual) Monocytes # (Manual) PT INR D-Dimer Heparin Anti-Xa Level POC ABG pH 7.299 L 7.300 L ABG pH POC ABG pCO2 48.2 H 45.2 H POC ABG pO2 133 H 107 H ABG pO2 ABG HCO3 ABG O2 Saturation ABG Base Excess ABG Hemoglobin Oxyhemoglobin Sodium Potassium Chloride Carbon Dioxide BUN Creatinine Glucose POC Glucose Lactic Acid Calcium Ionized Calcium Phosphorus Magnesium Iron TIBC Ferritin Total Bilirubin Direct Bilirubin AST ALT Alkaline Phosphatase Total Creatine Kinase CK-MB (CK-2) Troponin T C-Reactive Protein Total Protein Albumin Triglycerides LDL Cholesterol Direct HDL Cholesterol Free T4 PTH Intact Urine WBC (Auto) Urine Creatinine Salicylates Acetaminophen Crossmatch 04/02/19 04/02/19 04/02/19 05:03 05:03 12:15 WBC RBC Hgb 7.4 L Hct 22.6 L MCV RDW Plt Count Lymph % (Auto) Miller % (Auto) Lymph # Miller # Seg Neutrophils % Seg Neuts % (Manual) Lymphocytes % (Manual) Monocytes % (Manual) Nucleated RBC % Seg Neutrophils # Seg Neutrophils # Man Lymphocytes # (Manual) Monocytes # (Manual) PT INR D-Dimer Heparin Anti-Xa Level POC ABG pH ABG pH POC ABG pCO2 POC ABG pO2 ABG pO2 ABG HCO3 ABG O2 Saturation ABG Base Excess ABG Hemoglobin Oxyhemoglobin Sodium 136 L Potassium Chloride 97.8 L Carbon Dioxide 18 L BUN 82 H Creatinine 8.2 H Glucose POC Glucose Lactic Acid Calcium 6.7 L Ionized Calcium Phosphorus 7.50 H Magnesium Iron 26 L TIBC 138 L Ferritin 607.0 H Total Bilirubin Direct Bilirubin AST ALT Alkaline Phosphatase Total Creatine Kinase CK-MB (CK-2) Troponin T C-Reactive Protein Total Protein Albumin Triglycerides LDL Cholesterol Direct HDL Cholesterol Free T4 PTH Intact Urine WBC (Auto) Urine Creatinine Salicylates Acetaminophen Crossmatch 04/02/19 04/02/19 04/03/19 16:34 17:14 04:18 WBC RBC Hgb Hct MCV RDW Plt Count Lymph % (Auto) Miller % (Auto) Lymph # Miller # Seg Neutrophils % Seg Neuts % (Manual) Lymphocytes % (Manual) Monocytes % (Manual) Nucleated RBC % Seg Neutrophils # Seg Neutrophils # Man Lymphocytes # (Manual) Monocytes # (Manual) PT INR D-Dimer Heparin Anti-Xa Level POC ABG pH ABG pH POC ABG pCO2 POC ABG pO2 146 H ABG pO2 ABG HCO3 ABG O2 Saturation ABG Base Excess ABG Hemoglobin Oxyhemoglobin Sodium Potassium Chloride Carbon Dioxide BUN Creatinine Glucose POC Glucose 108 H Lactic Acid Calcium Ionized Calcium Phosphorus Magnesium Iron TIBC Ferritin Total Bilirubin Direct Bilirubin AST ALT Alkaline Phosphatase Total Creatine Kinase CK-MB (CK-2) Troponin T C-Reactive Protein Total Protein Albumin Triglycerides LDL Cholesterol Direct HDL Cholesterol Free T4 PTH Intact Urine WBC (Auto) Urine Creatinine Salicylates Acetaminophen Crossmatch See Detail 04/03/19 04/03/19 04/03/19 04:25 08:30 18:24 WBC RBC 2.40 L Hgb 7.3 L Hct 21.9 L MCV RDW Plt Count Lymph % (Auto) Miller % (Auto) 7.7 H Lymph # 0.9 L Miller # Seg Neutrophils % 74.6 H Seg Neuts % (Manual) Lymphocytes % (Manual) Monocytes % (Manual) Nucleated RBC % Seg Neutrophils # Seg Neutrophils # Man Lymphocytes # (Manual) Monocytes # (Manual) PT INR D-Dimer Heparin Anti-Xa Level POC ABG pH ABG pH POC ABG pCO2 POC ABG pO2 ABG pO2 ABG HCO3 ABG O2 Saturation ABG Base Excess ABG Hemoglobin Oxyhemoglobin Sodium 136 L Potassium Chloride 97.0 L Carbon Dioxide BUN 58 H Creatinine 7.3 H Glucose POC Glucose 106 H Lactic Acid Calcium 7.5 L Ionized Calcium Phosphorus 5.80 H D Magnesium Iron TIBC Ferritin Total Bilirubin Direct Bilirubin AST ALT Alkaline Phosphatase Total Creatine Kinase CK-MB (CK-2) Troponin T C-Reactive Protein Total Protein Albumin Triglycerides LDL Cholesterol Direct HDL Cholesterol Free T4 PTH Intact Urine WBC (Auto) Urine Creatinine Salicylates Acetaminophen Crossmatch 04/03/19 04/04/19 04/04/19 23:43 04:47 04:47 WBC RBC 2.72 L Hgb 8.3 L Hct 24.7 L MCV RDW 15.6 H Plt Count Lymph % (Auto) Miller % (Auto) 10.1 H Lymph # 0.8 L Miller # Seg Neutrophils % 71.4 H Seg Neuts % (Manual) Lymphocytes % (Manual) Monocytes % (Manual) Nucleated RBC % Seg Neutrophils # Seg Neutrophils # Man Lymphocytes # (Manual) Monocytes # (Manual) PT INR D-Dimer Heparin Anti-Xa Level POC ABG pH ABG pH POC ABG pCO2 POC ABG pO2 ABG pO2 123.8 H ABG HCO3 ABG O2 Saturation ABG Base Excess -3.0 L ABG Hemoglobin 7.9 L Oxyhemoglobin Sodium 134 L Potassium Chloride 97.9 L Carbon Dioxide BUN 64 H Creatinine 8.1 H Glucose POC Glucose Lactic Acid Calcium 7.2 L Ionized Calcium Phosphorus Magnesium Iron TIBC Ferritin Total Bilirubin Direct Bilirubin AST ALT Alkaline Phosphatase Total Creatine Kinase CK-MB (CK-2) Troponin T C-Reactive Protein Total Protein Albumin Triglycerides LDL Cholesterol Direct HDL Cholesterol Free T4 PTH Intact Urine WBC (Auto) Urine Creatinine Salicylates Acetaminophen Crossmatch 04/04/19 04/04/19 04/04/19 06:07 13:40 18:18 WBC RBC Hgb Hct MCV RDW Plt Count Lymph % (Auto) Miller % (Auto) Lymph # Miller # Seg Neutrophils % Seg Neuts % (Manual) Lymphocytes % (Manual) Monocytes % (Manual) Nucleated RBC % Seg Neutrophils # Seg Neutrophils # Man Lymphocytes # (Manual) Monocytes # (Manual) PT INR D-Dimer Heparin Anti-Xa Level POC ABG pH ABG pH POC ABG pCO2 POC ABG pO2 ABG pO2 95.9 H ABG HCO3 ABG O2 Saturation ABG Base Excess -3.0 L ABG Hemoglobin 8.5 L Oxyhemoglobin Sodium Potassium Chloride Carbon Dioxide BUN Creatinine Glucose POC Glucose 107 H 107 H Lactic Acid Calcium Ionized Calcium Phosphorus Magnesium Iron TIBC Ferritin Total Bilirubin Direct Bilirubin AST ALT Alkaline Phosphatase Total Creatine Kinase CK-MB (CK-2) Troponin T C-Reactive Protein Total Protein Albumin Triglycerides LDL Cholesterol Direct HDL Cholesterol Free T4 PTH Intact Urine WBC (Auto) Urine Creatinine Salicylates Acetaminophen Crossmatch 04/04/19 04/05/19 04/05/19 21:22 04:09 04:09 WBC RBC 2.76 L Hgb 8.4 L Hct 25.4 L MCV RDW 15.8 H Plt Count 133 L Lymph % (Auto) Miller % (Auto) 9.6 H Lymph # 0.7 L Miller # Seg Neutrophils % 72.6 H Seg Neuts % (Manual) Lymphocytes % (Manual) Monocytes % (Manual) Nucleated RBC % Seg Neutrophils # Seg Neutrophils # Man Lymphocytes # (Manual) Monocytes # (Manual) PT INR D-Dimer Heparin Anti-Xa Level POC ABG pH ABG pH POC ABG pCO2 47.2 H POC ABG pO2 137 H ABG pO2 ABG HCO3 ABG O2 Saturation ABG Base Excess ABG Hemoglobin Oxyhemoglobin Sodium 136 L Potassium Chloride Carbon Dioxide BUN 46 H Creatinine 6.7 H Glucose POC Glucose Lactic Acid Calcium 7.7 L Ionized Calcium Phosphorus Magnesium Iron TIBC Ferritin Total Bilirubin Direct Bilirubin AST ALT Alkaline Phosphatase Total Creatine Kinase CK-MB (CK-2) Troponin T C-Reactive Protein Total Protein Albumin Triglycerides LDL Cholesterol Direct HDL Cholesterol Free T4 PTH Intact Urine WBC (Auto) Urine Creatinine Salicylates Acetaminophen Crossmatch 04/05/19 04/05/19 04/05/19 05:28 06:14 16:50 WBC RBC Hgb Hct MCV RDW Plt Count Lymph % (Auto) Miller % (Auto) Lymph # Miller # Seg Neutrophils % Seg Neuts % (Manual) Lymphocytes % (Manual) Monocytes % (Manual) Nucleated RBC % Seg Neutrophils # Seg Neutrophils # Man Lymphocytes # (Manual) Monocytes # (Manual) PT INR D-Dimer Heparin Anti-Xa Level POC ABG pH ABG pH POC ABG pCO2 POC ABG pO2 67 L ABG pO2 ABG HCO3 ABG O2 Saturation ABG Base Excess ABG Hemoglobin Oxyhemoglobin Sodium Potassium Chloride Carbon Dioxide BUN Creatinine Glucose POC Glucose 108 H Lactic Acid Calcium Ionized Calcium Phosphorus Magnesium Iron TIBC Ferritin Total Bilirubin Direct Bilirubin AST ALT Alkaline Phosphatase Total Creatine Kinase CK-MB (CK-2) Troponin T C-Reactive Protein Total Protein Albumin Triglycerides LDL Cholesterol Direct HDL Cholesterol Free T4 PTH Intact Urine WBC (Auto) 40.0 H Urine Creatinine Salicylates Acetaminophen Crossmatch 04/05/19 04/06/19 04/06/19 17:22 00:13 04:44 WBC RBC 2.48 L Hgb 7.5 L Hct 22.9 L MCV RDW 16.0 H Plt Count 107 L Lymph % (Auto) Miller % (Auto) 10.7 H Lymph # 1.0 L Miller # Seg Neutrophils % Seg Neuts % (Manual) Lymphocytes % (Manual) Monocytes % (Manual) Nucleated RBC % Seg Neutrophils # Seg Neutrophils # Man Lymphocytes # (Manual) Monocytes # (Manual) PT INR D-Dimer Heparin Anti-Xa Level POC ABG pH ABG pH POC ABG pCO2 POC ABG pO2 ABG pO2 ABG HCO3 ABG O2 Saturation ABG Base Excess ABG Hemoglobin Oxyhemoglobin Sodium Potassium Chloride Carbon Dioxide BUN Creatinine Glucose POC Glucose 118 H 138 H Lactic Acid Calcium Ionized Calcium Phosphorus Magnesium Iron TIBC Ferritin Total Bilirubin Direct Bilirubin AST ALT Alkaline Phosphatase Total Creatine Kinase CK-MB (CK-2) Troponin T C-Reactive Protein Total Protein Albumin Triglycerides LDL Cholesterol Direct HDL Cholesterol Free T4 PTH Intact Urine WBC (Auto) Urine Creatinine Salicylates Acetaminophen Crossmatch 04/06/19 04/06/19 04/06/19 04:44 05:20 05:23 WBC RBC Hgb Hct MCV RDW Plt Count Lymph % (Auto) Miller % (Auto) Lymph # Miller # Seg Neutrophils % Seg Neuts % (Manual) Lymphocytes % (Manual) Monocytes % (Manual) Nucleated RBC % Seg Neutrophils # Seg Neutrophils # Man Lymphocytes # (Manual) Monocytes # (Manual) PT INR D-Dimer Heparin Anti-Xa Level POC ABG pH ABG pH POC ABG pCO2 POC ABG pO2 ABG pO2 104.0 H ABG HCO3 ABG O2 Saturation ABG Base Excess -2.1 L ABG Hemoglobin 7.3 L Oxyhemoglobin Sodium Potassium Chloride Carbon Dioxide BUN 64 H Creatinine 8.2 H Glucose 103 H POC Glucose 118 H Lactic Acid Calcium 7.3 L Ionized Calcium Phosphorus Magnesium Iron TIBC Ferritin Total Bilirubin Direct Bilirubin AST ALT Alkaline Phosphatase Total Creatine Kinase CK-MB (CK-2) Troponin T C-Reactive Protein Total Protein Albumin Triglycerides LDL Cholesterol Direct HDL Cholesterol Free T4 PTH Intact Urine WBC (Auto) Urine Creatinine Salicylates Acetaminophen Crossmatch 04/06/19 04/07/19 04/07/19 12:02 05:40 05:40 WBC RBC 2.59 L Hgb 7.9 L Hct 23.8 L MCV RDW 15.8 H Plt Count 89 L Lymph % (Auto) Miller % (Auto) 10.3 H Lymph # 1.1 L Miller # Seg Neutrophils % Seg Neuts % (Manual) Lymphocytes % (Manual) Monocytes % (Manual) Nucleated RBC % Seg Neutrophils # Seg Neutrophils # Man Lymphocytes # (Manual) Monocytes # (Manual) PT INR D-Dimer Heparin Anti-Xa Level POC ABG pH ABG pH POC ABG pCO2 POC ABG pO2 ABG pO2 ABG HCO3 ABG O2 Saturation ABG Base Excess ABG Hemoglobin Oxyhemoglobin Sodium 136 L Potassium 3.5 L Chloride Carbon Dioxide BUN 46 H Creatinine 6.2 H Glucose POC Glucose 108 H Lactic Acid Calcium 7.9 L Ionized Calcium Phosphorus Magnesium Iron TIBC Ferritin Total Bilirubin Direct Bilirubin AST ALT Alkaline Phosphatase Total Creatine Kinase CK-MB (CK-2) Troponin T C-Reactive Protein Total Protein Albumin Triglycerides LDL Cholesterol Direct HDL Cholesterol Free T4 PTH Intact Urine WBC (Auto) Urine Creatinine Salicylates Acetaminophen Crossmatch 04/07/19 04/09/19 04/09/19 12:57 04:28 04:28 WBC RBC 2.85 L Hgb 8.7 L Hct 26.2 L MCV RDW 15.6 H Plt Count Lymph % (Auto) Miller % (Auto) 10.4 H Lymph # 1.0 L Miller # Seg Neutrophils % 73.3 H Seg Neuts % (Manual) Lymphocytes % (Manual) Monocytes % (Manual) Nucleated RBC % Seg Neutrophils # Seg Neutrophils # Man Lymphocytes # (Manual) Monocytes # (Manual) PT INR D-Dimer Heparin Anti-Xa Level POC ABG pH ABG pH POC ABG pCO2 POC ABG pO2 107 H ABG pO2 ABG HCO3 ABG O2 Saturation ABG Base Excess ABG Hemoglobin Oxyhemoglobin Sodium Potassium 3.5 L Chloride 97.8 L Carbon Dioxide BUN 62 H Creatinine 8.1 H Glucose POC Glucose Lactic Acid Calcium 8.2 L Ionized Calcium Phosphorus 5.10 H Magnesium Iron TIBC Ferritin Total Bilirubin Direct Bilirubin AST ALT Alkaline Phosphatase Total Creatine Kinase CK-MB (CK-2) Troponin T C-Reactive Protein Total Protein Albumin Triglycerides LDL Cholesterol Direct HDL Cholesterol Free T4 PTH Intact Urine WBC (Auto) Urine Creatinine Salicylates Acetaminophen Crossmatch 04/10/19 04/11/19 04/11/19 18:15 00:25 04:16 WBC 11.5 H RBC 2.91 L Hgb 8.9 L Hct 27.6 L MCV 95 H RDW 17.5 H Plt Count Lymph % (Auto) Miller % (Auto) Lymph # Miller # Seg Neutrophils % Seg Neuts % (Manual) 71.0 H Lymphocytes % (Manual) Monocytes % (Manual) 8.0 H Nucleated RBC % Seg Neutrophils # Seg Neutrophils # Man 8.2 H Lymphocytes # (Manual) Monocytes # (Manual) 0.9 H PT INR D-Dimer Heparin Anti-Xa Level POC ABG pH ABG pH POC ABG pCO2 POC ABG pO2 ABG pO2 ABG HCO3 ABG O2 Saturation ABG Base Excess ABG Hemoglobin Oxyhemoglobin Sodium Potassium Chloride Carbon Dioxide BUN Creatinine Glucose POC Glucose 109 H 114 H Lactic Acid Calcium Ionized Calcium Phosphorus Magnesium Iron TIBC Ferritin Total Bilirubin Direct Bilirubin AST ALT Alkaline Phosphatase Total Creatine Kinase CK-MB (CK-2) Troponin T C-Reactive Protein Total Protein Albumin Triglycerides LDL Cholesterol Direct HDL Cholesterol Free T4 PTH Intact Urine WBC (Auto) Urine Creatinine Salicylates Acetaminophen Crossmatch 04/11/19 04/11/19 04/11/19 06:47 09:21 12:15 WBC RBC Hgb Hct MCV RDW Plt Count Lymph % (Auto) Miller % (Auto) Lymph # Miller # Seg Neutrophils % Seg Neuts % (Manual) Lymphocytes % (Manual) Monocytes % (Manual) Nucleated RBC % Seg Neutrophils # Seg Neutrophils # Man Lymphocytes # (Manual) Monocytes # (Manual) PT INR D-Dimer Heparin Anti-Xa Level POC ABG pH ABG pH POC ABG pCO2 POC ABG pO2 ABG pO2 ABG HCO3 ABG O2 Saturation ABG Base Excess ABG Hemoglobin Oxyhemoglobin Sodium Potassium 3.5 L Chloride Carbon Dioxide BUN 45 H Creatinine 6.0 H Glucose 113 H POC Glucose 106 H 109 H Lactic Acid Calcium Ionized Calcium Phosphorus Magnesium Iron TIBC Ferritin Total Bilirubin Direct Bilirubin AST ALT Alkaline Phosphatase Total Creatine Kinase CK-MB (CK-2) Troponin T C-Reactive Protein Total Protein Albumin Triglycerides LDL Cholesterol Direct HDL Cholesterol Free T4 PTH Intact Urine WBC (Auto) Urine Creatinine Salicylates Acetaminophen Crossmatch 04/11/19 04/12/19 04/12/19 18:42 12:13 23:52 WBC RBC Hgb Hct MCV RDW Plt Count Lymph % (Auto) Miller % (Auto) Lymph # Miller # Seg Neutrophils % Seg Neuts % (Manual) Lymphocytes % (Manual) Monocytes % (Manual) Nucleated RBC % Seg Neutrophils # Seg Neutrophils # Man Lymphocytes # (Manual) Monocytes # (Manual) PT INR D-Dimer Heparin Anti-Xa Level POC ABG pH ABG pH POC ABG pCO2 POC ABG pO2 ABG pO2 ABG HCO3 ABG O2 Saturation ABG Base Excess ABG Hemoglobin Oxyhemoglobin Sodium Potassium Chloride Carbon Dioxide BUN Creatinine Glucose POC Glucose 107 H 115 H 124 H Lactic Acid Calcium Ionized Calcium Phosphorus Magnesium Iron TIBC Ferritin Total Bilirubin Direct Bilirubin AST ALT Alkaline Phosphatase Total Creatine Kinase CK-MB (CK-2) Troponin T C-Reactive Protein Total Protein Albumin Triglycerides LDL Cholesterol Direct HDL Cholesterol Free T4 PTH Intact Urine WBC (Auto) Urine Creatinine Salicylates Acetaminophen Crossmatch 04/13/19 04/13/19 04/13/19 05:00 05:00 05:47 WBC 11.7 H RBC 2.97 L Hgb 8.8 L Hct 27.3 L MCV RDW 16.1 H Plt Count Lymph % (Auto) 9.5 L Miller % (Auto) 9.9 H Lymph # 1.1 L Miller # 1.2 H Seg Neutrophils % 78.6 H Seg Neuts % (Manual) Lymphocytes % (Manual) Monocytes % (Manual) Nucleated RBC % Seg Neutrophils # 9.2 H Seg Neutrophils # Man Lymphocytes # (Manual) Monocytes # (Manual) PT INR D-Dimer Heparin Anti-Xa Level POC ABG pH ABG pH POC ABG pCO2 POC ABG pO2 ABG pO2 ABG HCO3 ABG O2 Saturation ABG Base Excess ABG Hemoglobin Oxyhemoglobin Sodium Potassium 3.5 L Chloride Carbon Dioxide BUN 42 H Creatinine 4.6 H Glucose 106 H POC Glucose 107 H Lactic Acid Calcium 10.6 H D Ionized Calcium Phosphorus 5.90 H Magnesium Iron TIBC Ferritin Total Bilirubin Direct Bilirubin AST ALT Alkaline Phosphatase Total Creatine Kinase CK-MB (CK-2) Troponin T C-Reactive Protein Total Protein 5.8 L Albumin 2.5 L Triglycerides LDL Cholesterol Direct HDL Cholesterol Free T4 PTH Intact Urine WBC (Auto) Urine Creatinine Salicylates Acetaminophen Crossmatch 04/13/19 04/14/19 04/14/19 17:32 00:00 03:55 WBC RBC Hgb Hct MCV RDW Plt Count Lymph % (Auto) Miller % (Auto) Lymph # Miller # Seg Neutrophils % Seg Neuts % (Manual) Lymphocytes % (Manual) Monocytes % (Manual) Nucleated RBC % Seg Neutrophils # Seg Neutrophils # Man Lymphocytes # (Manual) Monocytes # (Manual) PT INR D-Dimer Heparin Anti-Xa Level POC ABG pH ABG pH POC ABG pCO2 POC ABG pO2 ABG pO2 ABG HCO3 ABG O2 Saturation ABG Base Excess ABG Hemoglobin Oxyhemoglobin Sodium Potassium 3.0 L Chloride Carbon Dioxide BUN 30 H Creatinine 3.1 H Glucose POC Glucose 112 H 120 H Lactic Acid Calcium 10.8 H Ionized Calcium Phosphorus Magnesium Iron TIBC Ferritin Total Bilirubin Direct Bilirubin AST ALT Alkaline Phosphatase Total Creatine Kinase CK-MB (CK-2) Troponin T C-Reactive Protein Total Protein Albumin Triglycerides LDL Cholesterol Direct HDL Cholesterol Free T4 PTH Intact Urine WBC (Auto) Urine Creatinine Salicylates Acetaminophen Crossmatch 04/14/19 04/14/19 04/15/19 11:56 23:28 05:11 WBC 13.0 H RBC 2.93 L Hgb 8.6 L Hct 26.5 L MCV RDW 16.5 H Plt Count Lymph % (Auto) 12.2 L Miller % (Auto) 9.1 H Lymph # Miller # 1.2 H Seg Neutrophils % 77.6 H Seg Neuts % (Manual) Lymphocytes % (Manual) Monocytes % (Manual) Nucleated RBC % Seg Neutrophils # 10.1 H Seg Neutrophils # Man Lymphocytes # (Manual) Monocytes # (Manual) PT INR D-Dimer Heparin Anti-Xa Level POC ABG pH ABG pH POC ABG pCO2 POC ABG pO2 ABG pO2 ABG HCO3 ABG O2 Saturation ABG Base Excess ABG Hemoglobin Oxyhemoglobin Sodium Potassium Chloride Carbon Dioxide BUN Creatinine Glucose POC Glucose 109 H 112 H Lactic Acid Calcium Ionized Calcium Phosphorus Magnesium Iron TIBC Ferritin Total Bilirubin Direct Bilirubin AST ALT Alkaline Phosphatase Total Creatine Kinase CK-MB (CK-2) Troponin T C-Reactive Protein Total Protein Albumin Triglycerides LDL Cholesterol Direct HDL Cholesterol Free T4 PTH Intact Urine WBC (Auto) Urine Creatinine Salicylates Acetaminophen Crossmatch 04/15/19 04/15/19 04/15/19 05:11 05:31 18:03 WBC RBC Hgb Hct MCV RDW Plt Count Lymph % (Auto) Miller % (Auto) Lymph # Miller # Seg Neutrophils % Seg Neuts % (Manual) Lymphocytes % (Manual) Monocytes % (Manual) Nucleated RBC % Seg Neutrophils # Seg Neutrophils # Man Lymphocytes # (Manual) Monocytes # (Manual) PT INR D-Dimer Heparin Anti-Xa Level POC ABG pH ABG pH POC ABG pCO2 POC ABG pO2 ABG pO2 ABG HCO3 ABG O2 Saturation ABG Base Excess ABG Hemoglobin Oxyhemoglobin Sodium Potassium 3.2 L Chloride Carbon Dioxide BUN 44 H Creatinine 3.6 H Glucose 106 H POC Glucose 110 H 121 H Lactic Acid Calcium 12.0 H Ionized Calcium Phosphorus 5.00 H Magnesium Iron TIBC Ferritin Total Bilirubin Direct Bilirubin AST ALT Alkaline Phosphatase Total Creatine Kinase CK-MB (CK-2) Troponin T C-Reactive Protein Total Protein Albumin Triglycerides LDL Cholesterol Direct HDL Cholesterol Free T4 PTH Intact Urine WBC (Auto) Urine Creatinine Salicylates Acetaminophen Crossmatch 04/16/19 04/16/19 05:07 05:07 WBC 12.6 H RBC 3.12 L Hgb 9.0 L Hct 28.2 L MCV RDW 16.6 H Plt Count Lymph % (Auto) 10.3 L Miller % (Auto) 9.8 H Lymph # Miller # 1.2 H Seg Neutrophils % 78.2 H Seg Neuts % (Manual) Lymphocytes % (Manual) Monocytes % (Manual) Nucleated RBC % Seg Neutrophils # 9.9 H Seg Neutrophils # Man Lymphocytes # (Manual) Monocytes # (Manual) PT INR D-Dimer Heparin Anti-Xa Level POC ABG pH ABG pH POC ABG pCO2 POC ABG pO2 ABG pO2 ABG HCO3 ABG O2 Saturation ABG Base Excess ABG Hemoglobin Oxyhemoglobin Sodium 147 H Potassium 3.5 L Chloride Carbon Dioxide BUN 54 H Creatinine 3.8 H Glucose 102 H POC Glucose Lactic Acid Calcium 11.7 H Ionized Calcium Phosphorus Magnesium Iron TIBC Ferritin Total Bilirubin Direct Bilirubin AST ALT Alkaline Phosphatase Total Creatine Kinase CK-MB (CK-2) Troponin T C-Reactive Protein Total Protein Albumin Triglycerides LDL Cholesterol Direct HDL Cholesterol Free T4 PTH Intact Urine WBC (Auto) Urine Creatinine Salicylates Acetaminophen Crossmatch
[2019-04-16] MEDS ORDERED: METOPROLOL TARTRATE 5 MG/5 ML INJ IV SCH (22:30)
[2019-04-17] MEDS: METOPROLOL TARTRATE 5 MG/5 ML INJ IV PRN ×2 (03:30→14:25)
[2019-04-17] MEDS: ACETAMINOPHEN 325 MG TAB PO PRN ×3 (04:06→22:45)
[2019-04-17 04:44] LABS: Basophils # (Auto) 0.1 K/mm3 (0.0-0.1); Basophils % (Auto) 0.8 % (0.0-1.8); Eosinophils # (Auto) 0.1 K/mm3 (0.0-0.4); Eosinophils % (Auto) 0.8 % (0.0-4.3); Hematocrit 29.9 % (35.5-45.6); Hemoglobin 9.5 gm/dl (11.8-15.2); Lymphocytes % (Auto) 12.6 % (13.4-35.0); Mean Corpuscular HGB Conc 32 % (32-34); Mean Corpuscular Volume 90 fl (84-94); Monocytes # (Auto) 1.7 K/mm3 (0.0-0.8); Monocytes % (Auto) 11.1 % (0.0-7.3); Platelet Count 225 K/mm3 (140-440); Red Blood Count 3.32 M/mm3 (3.65-5.03); Red Cell Distribution Width 16.9 % (13.2-15.2)
[2019-04-17 06:14] LABS: C-Reactive Protein 7.1 mg/dL (0.00-1.30)
[2019-04-17] MEDS ORDERED: BACITRACIN ZINC OINT 28.4 GM TP PRN (08:00)
[2019-04-17] MEDS ORDERED: DEXTROSE 50% IN WATER (25GM) 50 ML VIAL IV PRN (08:00)
--- NOTE | 2019-04-17 09:00 | Progress Note ---
Assessment and Plan Assessment and plan: Acute hypoxic respiratory failure. Continue BiPAP as clinically indicated. Atrial fibrillation. Continue Metoprolol. Cardiology following. No systemic AC regarding AFib in setting of anemia, thrombocytopenia, GI bleed. Acute blood loss anemia. Patient with GI bleed secondary to peptic ulcer diseas e. EGD completed per GI. Continue PRBCs as needed. I'll of H&H. GI bleed/peptic ulcer disease. Continue PPI. Transfuse PRBCs as needed. Sepsis/septic shock. Continue antibiotics per ID. Follow-up blood cultures. Levaquin added. ID following. Patient with recurrent fevers. Ischemic hepatitis/shock liver. Elevated LFTs improved. Viral hepatitis panel negative. Acute kidney injury. Patient now with hemodialysis. Patient was started on hemodialysis on 03/18/19 due to worsening metabolic acidosis and hyperkalemia. Baseline renal function is unknown. CT abdomen was negative for obstructive nephropathy. Avoid nephrotoxic agents. Continue hemodialysis per nephrology. Toxic metabolic encephalopathy. Brain MRI showed no acute intracranial abnormality, mild nonspecific chronic white matter changes, fluid throughout the sinuses and mastoid air cells. Hypokalemia. Replete potassium as needed. Hypernatremia. Bumex was stopped. Follow-up BMP Repeat BMP in morning Nephrology following Thrombocytopenia. Etiology likely secondary to sepsis. Resolved. Rhabdomyolysis. CK normalized. Patient doing better History Interval history: feels better asking when he can start eating food Hospitalist Physical - Physical exam Narrative exam: Gen: Not in acute distress, lying in bed, morbidly obese HEENT: Normocephalic, atraumatic, NG tube Neck: supple, no JVD Heart: S1 and S2 reg, no murmurs, rubs or gallop Lungs: Clear to auscultation, no rhonchi, no wheeze Abd: soft, non tender, non distended, normal BS, Ext: No edema, no clubbing, no cyanosis Neuro: Awake, alert, oriented X 3, no focal neurological signs - Constitutional Vitals: Temp Pulse Resp BP Pulse Ox 101.2 F H 133 H 20 121/69 96 04/17/19 04:05 04/17/19 06:00 04/17/19 06:00 04/17/19 06:00 04/17/19 08:39 General appearance: Present: obese, disheveled, other (Stup[place], somnolent and lethargic) Results - Labs CBC & Chem 7: 04/17/19 04:15 04/17/19 04:15 Labs: Laboratory Last Values WBC 15.8 K/mm3 (4.5-11.0) H 04/17/19 04:15 RBC 3.32 M/mm3 (3.65-5.03) L 04/17/19 04:15 Hgb 9.5 gm/dl (11.8-15.2) L 04/17/19 04:15 Hct 29.9 % (35.5-45.6) L 04/17/19 04:15 MCV 90 fl (84-94) 04/17/19 04:15 MCH 29 pg (28-32) 04/17/19 04:15 MCHC 32 % (32-34) 04/17/19 04:15 RDW 16.9 % (13.2-15.2) H 04/17/19 04:15 Plt Count 225 K/mm3 (140-440) 04/17/19 04:15 Lymph % (Auto) 12.6 % (13.4-35.0) L 04/17/19 04:15 [place] % (Auto) 11.1 % (0.0-7.3) H 04/17/19 04:15 Eos % (Auto) 0.8 % (0.0-4.3) 04/17/19 04:15 Baso % (Auto) 0.8 % (0.0-1.8) 04/17/19 04:15 Lymph # 2.0 K/mm3 (1.2-5.4) 04/17/19 04:15 [place] # 1.7 K/mm3 (0.0-0.8) H 04/17/19 04:15 Eos # 0.1 K/mm3 (0.0-0.4) 04/17/19 04:15 Baso # 0.1 K/mm3 (0.0-0.1) 04/17/19 04:15 Add Manual Diff Complete 04/11/19 04:16 Total Counted 100 04/11/19 04:16 Seg Neutrophils % 74.7 % (40.0-70.0) H 04/17/19 04:15 Seg Neuts % (Manual) 71.0 % (40.0-70.0) H 04/11/19 04:16 Band Neutrophils % 1.0 % 04/11/19 04:16 Lymphocytes % (Manual) 17.0 % (13.4-35.0) 04/11/19 04:16 Reactive Lymphs % (Man) 0 % 04/11/19 04:16 Monocytes % (Manual) 8.0 % (0.0-7.3) H 04/11/19 04:16 Eosinophils % (Manual) 2.0 % (0.0-4.3) 04/11/19 04:16 Basophils % (Manual) 1.0 % (0.0-1.8) 04/11/19 04:16 Metamyelocytes % 0 % 04/11/19 04:16 Myelocytes % 0 % 04/11/19 04:16 Promyelocytes % 0 % 04/11/19 04:16 Blast Cells % 0 % 04/11/19 04:16 Nucleated RBC % Not Reportable 04/11/19 04:16 Seg Neutrophils # 11.8 K/mm3 (1.8-7.7) H 04/17/19 04:15 Seg Neutrophils # Man 8.2 K/mm3 (1.8-7.7) H 04/11/19 04:16 Band Neutrophils # 0.1 K/mm3 04/11/19 04:16 Lymphocytes # (Manual) 2.0 K/mm3 (1.2-5.4) 04/11/19 04:16 Abs React Lymphs (Man) 0.0 K/mm3 04/11/19 04:16 Monocytes # (Manual) 0.9 K/mm3 (0.0-0.8) H 04/11/19 04:16 Eosinophils # (Manual) 0.2 K/mm3 (0.0-0.4) 04/11/19 04:16 Basophils # (Manual) 0.1 K/mm3 (0.0-0.1) 04/11/19 04:16 Metamyelocytes # 0.0 K/mm3 04/11/19 04:16 Myelocytes # 0.0 K/mm3 04/11/19 04:16 Promyelocytes # 0.0 K/mm3 04/11/19 04:16 Blast Cells # 0.0 K/mm3 04/11/19 04:16 WBC Morphology Not Reportable 04/11/19 04:16 Hypersegmented Neuts Not Reportable 04/11/19 04:16 Hyposegmented Neuts Not Reportable 04/11/19 04:16 Hypogranular Neuts Not Reportable 04/11/19 04:16 Smudge Cells Not Reportable 04/11/19 04:16 Toxic Granulation Not Reportable 04/11/19 04:16 Toxic Vacuolation Not Reportable 04/11/19 04:16 Dohle Bodies Not Reportable 04/11/19 04:16 Pelger-Huet Anomaly Not Reportable 04/11/19 04:16 Joyce Rods Not Reportable 04/11/19 04:16 Platelet Estimate Consistent w auto 04/11/19 04:16 Clumped Platelets Not Reportable 04/11/19 04:16 Plt Clumps, EDTA Not Reportable 04/11/19 04:16 Large Platelets Not Reportable 04/11/19 04:16 Giant Platelets Not Reportable 04/11/19 04:16 Platelet Satelliting Not Reportable 04/11/19 04:16 Plt Morphology Comment Not Reportable 04/11/19 04:16 RBC Morphology Not Reportable 04/11/19 04:16 Dimorphic RBCs Not Reportable 04/11/19 04:16 Polychromasia Not Reportable 04/11/19 04:16 Hypochromasia Not Reportable 04/11/19 04:16 Poikilocytosis Not Reportable 04/11/19 04:16 Anisocytosis Rare 04/11/19 04:16 Microcytosis Rare 04/11/19 04:16 Macrocytosis Not Reportable 04/11/19 04:16 Spherocytes Not Reportable 04/11/19 04:16 Pappenheimer Bodies Not Reportable 04/11/19 04:16 Sickle Cells Not Reportable 04/11/19 04:16 Target Cells Not Reportable 04/11/19 04:16 Tear Drop Cells Not Reportable 04/11/19 04:16 Ovalocytes Not Reportable 04/11/19 04:16 Stomatocytes Few 03/26/19 Unknown Helmet Cells Not Reportable 04/11/19 04:16 [place] Bodies Not Reportable 04/11/19 04:16 [place] Rings Not Reportable 04/11/19 04:16 Samantha Cells Not Reportable 04/11/19 04:16 Bite Cells Not Reportable 04/11/19 04:16 Crenated Cell Not Reportable 04/11/19 04:16 Elliptocytes Not Reportable 04/11/19 04:16 Acanthocytes (Spur) Not Reportable 04/11/19 04:16 Rouleaux Not Reportable 04/11/19 04:16 Hemoglobin C Crystals Not Reportable 04/11/19 04:16 Schistocytes Not Reportable 04/11/19 04:16 Malaria parasites Not Reportable 04/11/19 04:16 Phil Bodies Not Reportable 04/11/19 04:16 Hem Pathologist Commnt No 04/11/19 04:16 PT 15.3 Sec. (12.2-14.9) H 03/29/19 11:48 INR 1.24 (0.87-1.13) H 03/29/19 11:48 APTT 26.6 Sec. (24.2-36.6) 03/28/19 12:00 Fibrinogen 226 mg/dl (211-480) 03/28/19 12:00 D-Dimer 4845.98 ng/mlDDU (0-234) H 03/28/19 12:00 Heparin Anti-Xa Level 0.23 U.I./ml (0.3-0.7) L 03/28/19 05:13 POC ABG pH 7.401 (7.35-7.45) 04/07/19 12:57 ABG pH 7.388 pH Units (7.350-7.450) 04/06/19 05:20 POC ABG pCO2 41.5 (35-45) 04/07/19 12:57 ABG pCO2 38.5 mm Hg 04/06/19 05:20 POC ABG pO2 107 (80-105) H 04/07/19 12:57 ABG pO2 104.0 mm Hg (80.0-90.0) H 04/06/19 05:20 POC ABG HCO3 25.7 (22-26 mml/L) 04/07/19 12:57 ABG HCO3 22.6 mmol/L (20.0-26.0) 04/06/19 05:20 POC ABG Total CO2 27 (23-27mmol/L) 04/07/19 12:57 POC ABG O2 Sat 98 04/07/19 12:57 ABG O2 Saturation 97.8 % (95.0-99.0) 04/06/19 05:20 ABG O2 Content 10.0 (0.0-44) 04/06/19 05:20 POC ABG Base Excess 1 ((-2) - (+3)mmol/L) 04/07/19 12:57 ABG Base Excess -2.1 mmol/L (-2.0-3.0) L 04/06/19 05:20 ABG Hemoglobin 7.3 gm/dl (14.0-18.0) L 04/06/19 05:20 ABG Carboxyhemoglobin 1.7 % (0.0-5.0) 04/06/19 05:20 ABG Methemoglobin 0.6 % (0.0-1.5) 04/06/19 05:20 Oxyhemoglobin 95.5 % (95.0-99.0) 04/06/19 05:20 FiO2 30 % 04/07/19 12:57 Sodium 150 mmol/L (137-145) H 04/17/19 04:15 Potassium 3.1 mmol/L (3.6-5.0) L 04/17/19 04:15 Chloride 102.2 mmol/L (98-107) 04/17/19 04:15 Carbon Dioxide 32 mmol/L (22-30) H 04/17/19 04:15 Anion Gap 19 mmol/L 04/17/19 04:15 BUN 65 mg/dL (9-20) H 04/17/19 04:15 Creatinine 4.0 mg/dL (0.8-1.5) H 04/17/19 04:15 Estimated GFR 16 ml/min 04/17/19 04:15 BUN/Creatinine Ratio 16 % 04/17/19 04:15 Glucose 107 mg/dL (75-100) H 04/17/19 04:15 POC Glucose 111 (70-105) H 04/17/19 06:05 Lactic Acid 1.90 mmol/L (0.7-2.0) 03/21/19 21:31 Calcium 12.0 mg/dL (8.4-10.2) H 04/17/19 04:15 Ionized Calcium 3.7 mg/dL (4.8-5.6) L 03/30/19 12:09 Phosphorus 5.40 mg/dL (2.5-4.5) H 04/17/19 04:15 Magnesium 1.90 mg/dL (1.7-2.3) 03/31/19 15:07 Iron 26 ug/dL (49-181) L 04/02/19 05:03 TIBC 138 mcg/dL (250-450) L 04/02/19 05:03 Ferritin 607.0 ng/mL (13.0-400.0) H 04/02/19 05:03 Total Bilirubin 0.50 mg/dL (0.1-1.2) 04/13/19 05:00 Direct Bilirubin 0.4 mg/dL (0-0.2) H 03/31/19 08:20 Indirect Bilirubin 0.1 mg/dL 03/31/19 08:20 AST 21 units/L (5-40) 04/13/19 05:00 ALT 13 units/L (7-56) 04/13/19 05:00 Alkaline Phosphatase 52 units/L (35-129) 04/13/19 05:00 Total Creatine Kinase 62 units/L (55-170) 04/07/19 05:40 CK-MB (CK-2) 54.3 ng/mL (0.0-4.0) H 03/17/19 07:16 CK-MB (CK-2) Rel Index 0.0 (0-4) 03/17/19 07:16 Troponin T 0.058 ng/mL (0.00-0.029) H 03/17/19 07:16 C-Reactive Protein 7.10 mg/dL (0.00-1.30) H 04/17/19 04:15 Total Protein 5.8 g/dL (6.3-8.2) L 04/13/19 05:00 Albumin 2.5 g/dL (3.9-5) L 04/13/19 05:00 Albumin/Globulin Ratio 0.8 % 04/13/19 05:00 Triglycerides 309 mg/dL (2-149) H 03/29/19 06:22 Cholesterol 88 mg/dL (50-199) 03/16/19 22:32 LDL Cholesterol Direct 10 mg/dL (50-130) L 03/16/19 22:32 HDL Cholesterol 7 mg/dL (40-59) L 03/16/19 22:32 Cholesterol/HDL Ratio 12.57 % 03/16/19 22:32 Vitamin B12 903.0 pg/mL (211-911) 04/02/19 05:03 Folate 8.05 ng/mL (7.3-26.0) 04/02/19 05:03 Procalcitonin 25.42 ng/mL (<0.15) 03/27/19 19:21 TSH 2.200 mlU/mL (0.270-4.200) 03/16/19 17:05 Free T4 0.72 ng/dL (0.76-1.46) L 03/16/19 17:05 PTH Intact 329.9 pg/mL (15-65) H 03/25/19 05:00 Urine Color Yellow (Yellow) 04/15/19 22:11 Urine Turbidity Clear (Clear) 04/15/19 22:11 Urine pH 6.0 (5.0-7.0) 04/15/19 22:11 Ur Specific [place] 1.010 (1.003-1.030) 04/15/19 22:11 Urine Protein 30 mg/dl mg/dL (Negative) 04/15/19 22:11 Urine Glucose (UA) Neg mg/dL (Negative) 04/15/19 22:11 Urine Ketones Neg mg/dL (Negative) 04/15/19 22:11 Urine Blood Mod (Negative) 04/15/19 22:11 Urine Nitrite Neg (Negative) 04/15/19 22:11 Urine Bilirubin Neg (Negative) 04/15/19 22:11 Urine Urobilinogen < 2.0 mg/dL (<2.0) 04/15/19 22:11 Ur Leukocyte Esterase Neg (Negative) 04/15/19 22:11 Urine WBC (Auto) 4.0 /HPF (0.0-6.0) 04/15/19 22:11 Urine RBC (Auto) 2.0 /HPF (0.0-6.0) 04/15/19 22:11 U Epithel Cells (Auto) < 1.0 /HPF (0-13.0) 04/15/19 22:11 Amorphous Crystals 1+ 04/05/19 16:50 Urine Mucus Few /HPF 03/17/19 16:05 Urine Sperm 2+ /HPF (LEATHER CURRIER) 03/17/19 16:05 Urine Eosinophils None seen (None Seen) 03/17/19 16:05 Urine Creatinine 106.6 mg/dL (0.1-20.0) H 03/17/19 16:05 Urine Sodium 95 mmol/L 03/17/19 16:05 Vancomycin Trough 11.5 ug/mL (5.0-20.0) 03/18/19 13:19 Random Vancomycin 10.8 ug/mL (0-40.0) 04/14/19 03:55 Salicylates < 0.3 mg/dL (2.8-20.0) L 03/16/19 17:05 Urine Opiates Screen Presumptive negative 03/17/19 16:05 Urine Methadone Screen Presumptive negative 03/17/19 16:05 Acetaminophen < 5.0 ug/mL (10.0-30.0) L 03/16/19 17:05 Ur Barbiturates Screen Presumptive negative 03/17/19 16:05 Ur Phencyclidine Scrn Presumptive negative 03/17/19 16:05 Ur Amphetamines Screen Presumptive negative 03/17/19 16:05 U Benzodiazepines Scrn Presumptive positive 03/17/19 16:05 Urine Cocaine Screen Presumptive negative 03/17/19 16:05 U Marijuana (THC) Screen Presumptive negative 03/17/19 16:05 Drugs of Abuse Note Disclamer 03/17/19 16:05 Plasma/Serum Alcohol < 0.01 % (0-0.07) 03/16/19 17:05 Hepatitis A IgM Ab Non-reactive (NonReactive) 03/18/19 13:18 Hep Bs Antigen Non-reactive (Negative) 03/18/19 13:18 Hep B Core IgM Ab Non-reactive (NonReactive) 03/18/19 13:18 Hepatitis C Antibody Non-reactive (NonReactive) 03/18/19 13:18 HIV 1&2 Antibody Rapid Non react (Non React) 03/17/19 11:52 HIV P24 Antigen Non react (Non React) 03/17/19 11:52 Influenza A (Rapid) Negative (Negative) 03/17/19 17:00 Influenza B (Rapid) Negative (Negative) 03/17/19 17:00 Group A Strep Rapid Negative (Negative) 03/17/19 17:00 Miscellaneous Test Flexitest 1 03/21/19 12:00 Blood Type A POSITIVE 04/02/19 16:34 Antibody Screen Negative 04/02/19 16:34 Crossmatch See Detail 04/02/19 16:34 Active Medications - Current Medications Current Medications: Generic Name Dose Route Start Last Admin Trade Name Freq PRN Reason Stop Dose Admin Acetaminophen 650 mg 04/02/19 23:26 04/17/19 04:06 Tylenol PO 650 mg Q4H PRN Administration Pain, Mild (1-3),temp>100.5 Albuterol 2.5 mg 03/29/19 13:08 Proventil IH Q4HRT PRN Shortness Of Breath Amiodarone HCl 200 mg 04/15/19 22:00 04/16/19 23:18 Cordarone PO 200 mg BID PAOLO Administration Bacitracin 1 applic 04/17/19 08:00 Antibiotic Oint TP Q4H PRN upper lip sore/open Dextrose 50 gm 04/17/19 08:00 D50w (25gm) Vial IV Q1H PRN Hypoglycemia Epoetin Jet 20,000 unit 03/31/19 10:15 04/13/19 17:41 Procrit SUB-Q 20,000 unit NEYMAR PRN Administration hemodialysis Hydralazine HCl 20 mg 04/14/19 03:00 04/14/19 03:11 Apresoline IV 20 mg Q4H PRN Administration hypertemsion Hydrophilic Ointment 1 applic 03/16/19 15:50 Vaseline Lip Therapy TP Q2HR PRN Dry Lips Sodium Chloride 100 mls @ 999 mls/hr 04/13/19 08:30 Nacl 0.9% IV NEYMAR PRN Hypotension Lansoprazole 30 mg 04/11/19 10:00 04/16/19 23:18 Prevacid Solutab FEEDTUBE 30 mg BID PAOLO Administration Metoprolol Tartrate 5 mg 04/16/19 22:24 04/17/19 03:30 Lopressor IV 5 mg Q6H PRN Administration For HR >120 Metoprolol Tartrate 25 mg 04/16/19 23:00 04/16/19 23:19 Lopressor PO 25 mg BID PAOLO Administration Multi-Ingred Cream/Lotion/Oil/Oint 1 applic 03/16/19 15:50 03/19/19 20:10 Artificial Tears Ophth Oint OU 1 applic Q4HR PRN Administration Dry Eye(s) Nutrition/Malnutrition Assess - Dietary Evaluation Nutrition/Malnutrition Findings: Nutrition Notes Start: 03/17/19 14:22 Freq: Status: Active Protocol: Document 04/13/19 10:52 RM (Rec: 04/13/19 10:58 RM [id number]) Nutrition Notes Initial or Follow up Reassessment Current Diagnosis Acute Kidney Injury,Heart Failure Other Pertinent Diagnosis on HD, Septic shock,Multiple organ failure, encephalopathy, Aspiration pneu Current Diet Nepro at 50 ml/hr Labs/Tests Na 142 BUN 42 Creat 4.6 K 3.5 Pertinent Medications Zofran, Bumetanide Height 6 ft Weight 148.5 kg [place] Body Weight (kg) 80.90 BMI 44.4 Subjective/Other Information Observed Nepro infusing at goal rate. Per nurse pt is tolerating TF. Percent of energy/protein needs met: 100%/100% Burn Absent Trauma Absent Minimum of two criteria No #1 Nutrition Diagnosis Inadequate oral intake Diagnosis Progress(for reassessment Continues documentation) Is patient on ventilator? No Is Patient Ambulatory and/or Out of Bed No REE-([facility]-confined to bed) 2892.144 Kcal/Kg value to use for calculation 14 Approximate Energy Requirements Using 2079 kcal/Kg Calculation Used for Recommendations Kcal/kg Additional Notes Protein: 97-121g (1.2-1.5g/kg, IBW) Fluids:1 ml/kcal or per MD Nutrition Intervention Nutrition Support: Nepro 1.8 at 50 ml/hr Water flush 150 ml q4hr or per MD Kcal 2,160 Protein (gm) 97 Fluid (mL) 872 Goal #1 TF tolerance Goal #2 Continue to meet at least 75% of calorie and protein needs via TF Anticipated Discharge Needs: Unable to determine at this time Follow-Up By: 04/20/19 Additional Comments Follow for TF tolerance
--- NOTE | 2019-04-17 09:27 | Progress Note ---
Assessment and Plan Patient awake, but confused. Presently is resting on 2L O2. O2 saturation is 93%. Patient is still tachycardic . No acute respiratory distress. Patient afebrile and has mild leukocytosis. Antibiotics per infectious disease consultants. - Patient Problems (1) Acute respiratory failure Current Visit: Yes Status: Acute Qualifiers: Respiratory failure complication: hypoxia Qualified Code(s): J96.01 - Acute respiratory failure with hypoxia Plan to address problem: Patient on 2L O2. BiPAP standby in the room. Albuterol/atrovent aerosol treatments q 6 hours. Continue Prevacid. Recommend DVT prophylaxis. SCDs (2) Altered mental status Current Visit: Yes Status: Acute Qualifiers: Altered mental status type: unspecified Qualified Code(s): R41.82 - Altered mental status, unspecified Plan to address problem: Management as per primary care and neurology. (3) Atrial fibrillation with RVR Current Visit: Yes Status: Acute Plan to address problem: Management as per cardiology. (4) Cardiopulmonary arrest Current Visit: Yes Status: Acute Plan to address problem: Patient resucitated. Presently on 2L O2. (5) Acute renal failure Current Visit: Yes Status: Acute Qualifiers: Acute renal failure type: with acute tubular necrosis Qualified Code(s): N17.0 - Acute kidney failure with tubular necrosis Plan to address problem: Management as per nephrology. (6) Aspiration pneumonia Current Visit: Yes Status: Acute Qualifiers: Aspiration pneumonia type: unspecified Plan to address problem: Patient treated with cepepime. (7) GI bleed Current Visit: Yes Status: Acute Plan to address problem: Management as per gastroenterology. Subjective Date of service: 04/17/19 Principal diagnosis: anemia - DVT IJ Interval history: Patient awake, but confused. Presently is resting on 2L O2. O2 saturation is 93%. Patient is still tachycardic . No acute respiratory distress. Patient afebrile and has mild leukocytosis. Antibiotics per infectious disease consultants. Objective Vital Signs - 12hr 04/16/19 04/16/19 04/16/19 21:45 22:00 23:00 Temperature Pulse Rate 145 H 171 H Pulse Rate [ From Monitor] Respiratory 41 H 35 H Rate Blood Pressure 132/63 123/70 O2 Sat by Pulse 98 93 95 Oximetry 04/16/19 04/17/19 04/17/19:19 00:00 01:00 Temperature 98.7 F Pulse Rate 156 H 108 H 137 H Pulse Rate [ 147 H From Monitor] Respiratory 25 H 23 Rate Blood Pressure 123/70 123/70 136/81 O2 Sat by Pulse 96 94 Oximetry 04/17/19 04/17/19 04/17/19 02:00 03:00 03:30 Temperature Pulse Rate 105 H 107 H 164 H Pulse Rate [ From Monitor] Respiratory 15 12 Rate Blood Pressure 138/106 122/78 122/78 O2 Sat by Pulse 95 98 Oximetry 04/17/19 04/17/19 04/17/19 04:00 04:05 05:00 Temperature 102.2 F H 101.2 F H Pulse Rate 136 H 132 H Pulse Rate [ 97 H From Monitor] Respiratory 23 16 Rate Blood Pressure 122/78 128/65 O2 Sat by Pulse 98 98 Oximetry 04/17/19 04/17/19 06:00 08:39 Temperature Pulse Rate 133 H Pulse Rate [ From Monitor] Respiratory 20 Rate Blood Pressure 121/69 O2 Sat by Pulse 95 96 Oximetry Constitutional: no acute distress, alert, other (Confused.) Eyes: icteric ENT: oropharynx moist, other (extubated) Neck: supple, no lymphadenopathy, no JVD, other (large neck circumference) Effort: mildly labored Ascultation: Bilateral: diminished breath sounds, rales, rhonchi (scant) Percussion: Bilateral: not dull Cardiovascular: irregular rhythm, other ( S1,S2) Gastrointestinal: normoactive bowel sounds, soft, non-tender Integumentary: normal Extremities: no cyanosis, pink and warm, pulses normal, no ischemia or petechiae Neurologic: normal mental status, non-focal exam (grossly), pupils equal and round, CN II-XII normal, other (very weak) Psychiatric: mood appropriate, affect normal CBC and BMP: 04/17/19 04:15 04/17/19 04:15 ABG, PT/INR, D-dimer: ABG POC ABG pH 7.401 (7.35-7.45) 04/07/19 12:57 ABG pH 7.388 pH Units (7.350-7.450) 04/06/19 05:20 POC ABG pCO2 41.5 (35-45) 04/07/19 12:57 ABG pCO2 38.5 mm Hg 04/06/19 05:20 POC ABG pO2 107 (80-105) H 04/07/19 12:57 ABG pO2 104.0 mm Hg (80.0-90.0) H 04/06/19 05:20 POC ABG HCO3 25.7 (22-26 mml/L) 04/07/19 12:57 POC ABG Total CO2 27 (23-27mmol/L) 04/07/19 12:57 POC ABG O2 Sat 98 04/07/19 12:57 ABG O2 Saturation 97.8 % (95.0-99.0) 04/06/19 05:20 PT/INR, D-dimer PT 15.3 Sec. (12.2-14.9) H 03/29/19 11:48 INR 1.24 (0.87-1.13) H 03/29/19 11:48 D-Dimer 4845.98 ng/mlDDU (0-234) H 03/28/19 12:00 Abnormal lab findings: Abnormal Labs 03/16/19 03/16/19 03/16/19 15:32 16:03 16:05 WBC 27.0 H RBC 5.55 H Hgb 15.7 H Hct 47.1 H MCV RDW Plt Count 75 L Lymph % (Auto) [place] % (Auto) Lymph # [place] # Seg Neutrophils % Seg Neuts % (Manual) 85.0 H Lymphocytes % (Manual) 2.0 L Monocytes % (Manual) Nucleated RBC % Seg Neutrophils # Seg Neutrophils # Man 23.0 H Lymphocytes # (Manual) 0.5 L Monocytes # (Manual) PT INR D-Dimer Heparin Anti-Xa Level POC ABG pH ABG pH POC ABG pCO2 POC ABG pO2 ABG pO2 ABG HCO3 ABG O2 Saturation ABG Base Excess ABG Hemoglobin Oxyhemoglobin Sodium 127 L Potassium Chloride 87.8 L Carbon Dioxide 17 L BUN 49 H Creatinine 5.8 H Glucose 150 H POC Glucose 118 H Lactic Acid Calcium 6.6 L Ionized Calcium Phosphorus Magnesium 1.10 L Iron TIBC Ferritin Total Bilirubin Direct Bilirubin AST ALT Alkaline Phosphatase Total Creatine Kinase 02040 H CK-MB (CK-2) Troponin T C-Reactive Protein Total Protein Albumin Triglycerides LDL Cholesterol Direct HDL Cholesterol Free T4 PTH Intact Urine WBC (Auto) Urine Creatinine Salicylates Acetaminophen Crossmatch 03/16/19 03/16/1903/16/19 16:59 17:05 17:05 WBC RBC Hgb Hct MCV RDW Plt Count Lymph % (Auto) [place] % (Auto) Lymph # [place] # Seg Neutrophils % Seg Neuts % (Manual) Lymphocytes % (Manual) Monocytes % (Manual) Nucleated RBC % Seg Neutrophils # Seg Neutrophils # Man Lymphocytes # (Manual) Monocytes # (Manual) PT INR D-Dimer Heparin Anti-Xa Level POC ABG pH 7.297 L ABG pH POC ABG pCO2 33.0 L POC ABG pO2 ABG pO2 ABG HCO3 ABG O2 Saturation ABG Base Excess ABG Hemoglobin Oxyhemoglobin Sodium Potassium Chloride Carbon Dioxide BUN Creatinine Glucose POC Glucose Lactic Acid Calcium Ionized Calcium Phosphorus Magnesium Iron TIBC Ferritin Total Bilirubin Direct Bilirubin AST ALT Alkaline Phosphatase Total Creatine Kinase 66116 H CK-MB (CK-2) 83.1 H Troponin T C-Reactive Protein Total Protein Albumin Triglycerides LDL Cholesterol Direct HDL Cholesterol Free T4 0.72 L PTH Intact Urine WBC (Auto) Urine Creatinine Salicylates Acetaminophen Crossmatch 03/16/19 03/16/19 03/16/19 17:05 17:05 17:05 WBC RBC Hgb Hct MCV RDW Plt Count Lymph % (Auto) [place] % (Auto) Lymph # [place] # Seg Neutrophils % Seg Neuts % (Manual) Lymphocytes % (Manual) Monocytes % (Manual) Nucleated RBC % Seg Neutrophils # Seg Neutrophils # Man Lymphocytes # (Manual) Monocytes # (Manual) PT INR D-Dimer Heparin Anti-Xa Level POC ABG pH ABG pH POC ABG pCO2 POC ABG pO2 ABG pO2 ABG HCO3 ABG O2 Saturation ABG Base Excess ABG Hemoglobin Oxyhemoglobin Sodium Potassium Chloride Carbon Dioxide BUN Creatinine Glucose POC Glucose Lactic Acid 5.10 H* Calcium Ionized Calcium Phosphorus Magnesium Iron TIBC Ferritin Total Bilirubin Direct Bilirubin AST ALT Alkaline Phosphatase Total Creatine Kinase CK-MB (CK-2) Troponin T C-Reactive Protein Total Protein Albumin Triglycerides LDL Cholesterol Direct HDL Cholesterol Free T4 PTH Intact Urine WBC (Auto) Urine Creatinine Salicylates < 0.3 L Acetaminophen < 5.0 L Crossmatch 03/16/19 03/16/19 03/16/19 17:05 17:05 20:35 WBC RBC Hgb Hct MCV RDW Plt Count Lymph % (Auto) [place] % (Auto) Lymph # [place] # Seg Neutrophils % Seg Neuts % (Manual) Lymphocytes % (Manual) Monocytes % (Manual) Nucleated RBC % Seg Neutrophils # Seg Neutrophils # Man Lymphocytes # (Manual) Monocytes # (Manual) PT 15.9 H INR 1.30 H D-Dimer Heparin Anti-Xa Level POC ABG pH ABG pH POC ABG pCO2 POC ABG pO2 ABG pO2 ABG HCO3 ABG O2 Saturation ABG Base Excess ABG Hemoglobin Oxyhemoglobin Sodium Potassium Chloride Carbon Dioxide BUN Creatinine Glucose POC Glucose Lactic Acid 3.30 H* Calcium Ionized Calcium Phosphorus Magnesium Iron TIBC Ferritin Total Bilirubin 6.20 H Direct Bilirubin 5.9 H AST 800 H ALT 120 H Alkaline Phosphatase Total Creatine Kinase CK-MB (CK-2) Troponin T C-Reactive Protein Total Protein 4.4 L Albumin 2.4 L Triglycerides LDL Cholesterol Direct HDL Cholesterol Free T4 PTH Intact Urine WBC (Auto) Urine Creatinine Salicylates Acetaminophen Crossmatch 03/16/19 03/16/19 03/16/19 21:45 22:32 Unknown WBC RBC Hgb Hct MCV RDW Plt Count Lymph % (Auto) [place] % (Auto) Lymph # [place] # Seg Neutrophils % Seg Neuts % (Manual) Lymphocytes % (Manual) Monocytes % (Manual) Nucleated RBC % Seg Neutrophils # Seg Neutrophils # Man Lymphocytes # (Manual) Monocytes # (Manual) PT INR D-Dimer Heparin Anti-Xa Level POC ABG pH ABG pH POC ABG pCO2 POC ABG pO2 ABG pO2 ABG HCO3 ABG O2 Saturation ABG Base Excess ABG Hemoglobin Oxyhemoglobin Sodium Potassium Chloride Carbon Dioxide BUN Creatinine Glucose POC Glucose Lactic Acid 3.30 H* 3.00 H* Calcium Ionized Calcium Phosphorus Magnesium Iron TIBC Ferritin Total Bilirubin Direct Bilirubin AST ALT Alkaline Phosphatase Total Creatine Kinase CK-MB (CK-2) Troponin T 0.047 H D C-Reactive Protein Total Protein Albumin Triglycerides 395 H LDL Cholesterol Direct 10 L HDL Cholesterol 7 L Free T4 PTH Intact Urine WBC (Auto) Urine Creatinine Salicylates Acetaminophen Crossmatch 03/17/19 03/17/19 03/17/19 03:45 03:45 03:45 WBC RBC Hgb Hct MCV RDW Plt Count Lymph % (Auto) [place] % (Auto) Lymph # [place] # Seg Neutrophils % Seg Neuts % (Manual) Lymphocytes % (Manual) Monocytes % (Manual) Nucleated RBC % Seg Neutrophils # Seg Neutrophils # Man Lymphocytes # (Manual) Monocytes # (Manual) PT INR D-Dimer Heparin Anti-Xa Level POC ABG pH ABG pH POC ABG pCO2 POC ABG pO2 ABG pO2 ABG HCO3 ABG O2 Saturation ABG Base Excess ABG Hemoglobin Oxyhemoglobin Sodium 131 L Potassium Chloride 88.9 L Carbon Dioxide BUN 53 H Creatinine 7.1 H Glucose POC Glucose Lactic Acid 4.10 H* Calcium 5.4 L* D Ionized Calcium Phosphorus 7.30 H Magnesium 1.60 L Iron TIBC Ferritin Total Bilirubin 5.90 H Direct Bilirubin AST 801 H ALT 109 H Alkaline Phosphatase Total Creatine Kinase 64557 H 37798 H CK-MB (CK-2) 41.5 H Troponin T 0.054 H C-Reactive Protein Total Protein 4.5 L Albumin 2.0 L Triglycerides LDL Cholesterol Direct HDL Cholesterol Free T4 PTH Intact Urine WBC (Auto) Urine Creatinine Salicylates Acetaminophen Crossmatch 03/17/19 03/17/19 03/17/19 05:47 07:16 07:16 WBC RBC Hgb Hct MCV RDW Plt Count Lymph % (Auto) [place] % (Auto) Lymph # [place] # Seg Neutrophils % Seg Neuts % (Manual) Lymphocytes % (Manual) Monocytes % (Manual) Nucleated RBC % Seg Neutrophils # Seg Neutrophils # Man Lymphocytes # (Manual) Monocytes # (Manual) PT INR D-Dimer Heparin Anti-Xa Level POC ABG pH 7.193 L ABG pH POC ABG pCO2 45.2 H POC ABG pO2 65 L ABG pO2 ABG HCO3 ABG O2 Saturation ABG Base Excess ABG Hemoglobin Oxyhemoglobin Sodium Potassium Chloride Carbon Dioxide BUN Creatinine Glucose POC Glucose Lactic Acid 5.50 H* Calcium Ionized Calcium Phosphorus Magnesium Iron TIBC Ferritin Total Bilirubin Direct Bilirubin AST ALT Alkaline Phosphatase Total Creatine Kinase 34230 H CK-MB (CK-2) 54.3 H Troponin T 0.058 H C-Reactive Protein Total Protein Albumin Triglycerides LDL Cholesterol Direct HDL Cholesterol Free T4 PTH Intact Urine WBC (Auto) Urine Creatinine Salicylates Acetaminophen Crossmatch 03/17/19 03/17/19 03/17/19 11:52 12:51 13:01 WBC RBC Hgb Hct MCV RDW Plt Count Lymph % (Auto) [place] % (Auto) Lymph # [place] # Seg Neutrophils % Seg Neuts % (Manual) Lymphocytes % (Manual) Monocytes % (Manual) Nucleated RBC % Seg Neutrophils # Seg Neutrophils # Man Lymphocytes # (Manual) Monocytes # (Manual) PT INR D-Dimer Heparin Anti-Xa Level POC ABG pH 7.154 L ABG pH POC ABG pCO2 34.3 L POC ABG pO2 73 L ABG pO2 ABG HCO3 ABG O2 Saturation ABG Base Excess ABG Hemoglobin Oxyhemoglobin Sodium Potassium Chloride Carbon Dioxide BUN Creatinine Glucose POC Glucose 60 L Lactic Acid 8.20 H* Calcium Ionized Calcium Phosphorus Magnesium Iron TIBC Ferritin Total Bilirubin Direct Bilirubin AST ALT Alkaline Phosphatase Total Creatine Kinase CK-MB (CK-2) Troponin T C-Reactive Protein Total Protein Albumin Triglycerides LDL Cholesterol Direct HDL Cholesterol Free T4 PTH Intact Urine WBC (Auto) Urine Creatinine Salicylates Acetaminophen Crossmatch 03/17/19 03/17/19 03/17/19 14:37 14:37 14:37 WBC 29.3 H RBC Hgb Hct MCV RDW 15.8 H Plt Count 45 L Lymph % (Auto) [place] % (Auto) Lymph # [place] # Seg Neutrophils % Seg Neuts % (Manual) 81.0 H Lymphocytes % (Manual) 1.0 L Monocytes % (Manual) 15.0 H Nucleated RBC % Seg Neutrophils # Seg Neutrophils # Man 23.7 H Lymphocytes # (Manual) 0.3 L Monocytes # (Manual) 4.4 H PT INR D-Dimer Heparin Anti-Xa Level POC ABG pH ABG pH POC ABG pCO2 POC ABG pO2 ABG pO2 ABG HCO3 ABG O2 Saturation ABG Base Excess ABG Hemoglobin Oxyhemoglobin Sodium Potassium Chloride Carbon Dioxide BUN Creatinine Glucose POC Glucose Lactic Acid 4.90 H* Calcium Ionized Calcium Phosphorus Magnesium Iron TIBC Ferritin Total Bilirubin Direct Bilirubin AST ALT Alkaline Phosphatase Total Creatine Kinase CK-MB (CK-2) Troponin T C-Reactive Protein 24.90 H Total Protein Albumin Triglycerides LDL Cholesterol Direct HDL Cholesterol Free T4 PTH Intact Urine WBC (Auto) Urine Creatinine Salicylates Acetaminophen Crossmatch 03/17/19 03/17/19 03/17/19 16:05 16:05 17:02 WBC RBC Hgb Hct MCV RDW Plt Count Lymph % (Auto) [place] % (Auto) Lymph # [place] # Seg Neutrophils % Seg Neuts % (Manual) Lymphocytes % (Manual) Monocytes % (Manual) Nucleated RBC % Seg Neutrophils # Seg Neutrophils # Man Lymphocytes # (Manual) Monocytes # (Manual) PT INR D-Dimer Heparin Anti-Xa Level POC ABG pH 7.183 L ABG pH POC ABG pCO2 POC ABG pO2 65 L ABG pO2 ABG HCO3 ABG O2 Saturation ABG Base Excess ABG Hemoglobin Oxyhemoglobin Sodium Potassium Chloride Carbon Dioxide BUN Creatinine Glucose POC Glucose Lactic Acid Calcium Ionized Calcium Phosphorus Magnesium Iron TIBC Ferritin Total Bilirubin Direct Bilirubin AST ALT Alkaline Phosphatase Total Creatine Kinase CK-MB (CK-2) Troponin T C-Reactive Protein Total Protein Albumin Triglycerides LDL Cholesterol Direct HDL Cholesterol Free T4 PTH Intact Urine WBC (Auto) 30.0 H Urine Creatinine 106.6 H Salicylates Acetaminophen Crossmatch 03/18/19 03/18/19 03/18/19 05:12 05:16 05:53 WBC RBC Hgb Hct MCV RDW Plt Count Lymph % (Auto) [place] % (Auto) Lymph # [place] # Seg Neutrophils % Seg Neuts % (Manual) Lymphocytes % (Manual) Monocytes % (Manual) Nucleated RBC % Seg Neutrophils # Seg Neutrophils # Man Lymphocytes # (Manual) Monocytes # (Manual) PT INR D-Dimer Heparin Anti-Xa Level POC ABG pH 7.257 L ABG pH POC ABG pCO2 31.6 L POC ABG pO2 69 L ABG pO2 ABG HCO3 ABG O2 Saturation ABG Base Excess ABG Hemoglobin Oxyhemoglobin Sodium Potassium Chloride Carbon Dioxide BUN Creatinine Glucose POC Glucose 141 H Lactic Acid 5.00 H* Calcium Ionized Calcium Phosphorus Magnesium Iron TIBC Ferritin Total Bilirubin Direct Bilirubin AST ALT Alkaline Phosphatase Total Creatine Kinase CK-MB (CK-2) Troponin T C-Reactive Protein Total Protein Albumin Triglycerides LDL Cholesterol Direct HDL Cholesterol Free T4 PTH Intact Urine WBC (Auto) Urine Creatinine Salicylates Acetaminophen Crossmatch 03/18/19 03/18/19 03/18/19 06:57 08:40 08:40 WBC 31.7 H RBC Hgb Hct MCV RDW 15.5 H Plt Count 35 L Lymph % (Auto) [place] % (Auto) Lymph # [place] # Seg Neutrophils % Seg Neuts % (Manual) Lymphocytes % (Manual) Monocytes % (Manual) Nucleated RBC % Seg Neutrophils # Seg Neutrophils # Man Lymphocytes # (Manual) Monocytes # (Manual) PT INR D-Dimer Heparin Anti-Xa Level POC ABG pH ABG pH POC ABG pCO2 POC ABG pO2 ABG pO2 ABG HCO3 ABG O2 Saturation ABG Base Excess ABG Hemoglobin Oxyhemoglobin Sodium 132 L Potassium 5.5 H D Chloride 88.5 L Carbon Dioxide 18 L BUN 71 H Creatinine 8.1 H Glucose 205 H POC Glucose Lactic Acid 5.00 H* Calcium 4.1 L* D Ionized Calcium Phosphorus Magnesium 2.40 H Iron TIBC Ferritin Total Bilirubin 7.50 H Direct Bilirubin AST 1088 H ALT 159 H Alkaline Phosphatase 190 H Total Creatine Kinase 841420 H CK-MB (CK-2) Troponin T C-Reactive Protein Total Protein 4.7 L Albumin 1.8 L Triglycerides LDL Cholesterol Direct HDL Cholesterol Free T4 PTH Intact Urine WBC (Auto) Urine Creatinine Salicylates Acetaminophen Crossmatch 03/18/19 03/18/19 03/18/19 12:33 12:50 13:19 WBC RBC Hgb Hct MCV RDW Plt Count Lymph % (Auto) [place] % (Auto) Lymph # [place] # Seg Neutrophils % Seg Neuts % (Manual) Lymphocytes % (Manual) Monocytes % (Manual) Nucleated RBC % Seg Neutrophils # Seg Neutrophils # Man Lymphocytes # (Manual) Monocytes # (Manual) PT INR D-Dimer Heparin Anti-Xa Level POC ABG pH 7.282 L ABG pH POC ABG pCO2 POC ABG pO2 67 L ABG pO2 ABG HCO3 ABG O2 Saturation ABG Base Excess ABG Hemoglobin Oxyhemoglobin Sodium Potassium Chloride Carbon Dioxide BUN Creatinine Glucose POC Glucose 129 H Lactic Acid 3.30 H* Calcium Ionized Calcium Phosphorus Magnesium Iron TIBC Ferritin Total Bilirubin Direct Bilirubin AST ALT Alkaline Phosphatase Total Creatine Kinase CK-MB (CK-2) Troponin T C-Reactive Protein Total Protein Albumin Triglycerides LDL Cholesterol Direct HDL Cholesterol Free T4 PTH Intact Urine WBC (Auto) Urine Creatinine Salicylates Acetaminophen Crossmatch 03/18/19 03/18/19 03/18/19 13:19 16:50 18:11 WBC RBC Hgb Hct MCV RDW Plt Count Lymph % (Auto) [place] % (Auto) Lymph # [place] # Seg Neutrophils % Seg Neuts % (Manual) Lymphocytes % (Manual) Monocytes % (Manual) Nucleated RBC % Seg Neutrophils # Seg Neutrophils # Man Lymphocytes # (Manual) Monocytes # (Manual) PT INR D-Dimer Heparin Anti-Xa Level POC ABG pH ABG pH POC ABG pCO2 POC ABG pO2 59 L ABG pO2 ABG HCO3 ABG O2 Saturation ABG Base Excess ABG Hemoglobin Oxyhemoglobin Sodium Potassium Chloride Carbon Dioxide BUN Creatinine Glucose POC Glucose 151 H Lactic Acid Calcium 4.2 L* Ionized Calcium Phosphorus Magnesium Iron TIBC Ferritin Total Bilirubin Direct Bilirubin AST ALT Alkaline Phosphatase Total Creatine Kinase 767223 H CK-MB (CK-2) Troponin T C-Reactive Protein Total Protein Albumin Triglycerides LDL Cholesterol Direct HDL Cholesterol Free T4 PTH Intact Urine WBC (Auto) Urine Creatinine Salicylates Acetaminophen Crossmatch 03/18/19 03/18/19 03/19/19 18:20 23:39 01:42 WBC RBC Hgb Hct MCV RDW Plt Count Lymph % (Auto) [place] % (Auto) Lymph # [place] # Seg Neutrophils % Seg Neuts % (Manual) Lymphocytes % (Manual) Monocytes % (Manual) Nucleated RBC % Seg Neutrophils # Seg Neutrophils # Man Lymphocytes # (Manual) Monocytes # (Manual) PT INR D-Dimer Heparin Anti-Xa Level POC ABG pH 7.345 L ABG pH 7.285 L POC ABG pCO2 POC ABG pO2 59 L ABG pO2 44.0 L ABG HCO3 ABG O2 Saturation 70.9 L ABG Base Excess -5.7 L ABG Hemoglobin 11.9 L Oxyhemoglobin 69.6 L Sodium Potassium Chloride Carbon Dioxide BUN Creatinine Glucose POC Glucose 152 H Lactic Acid Calcium Ionized Calcium Phosphorus Magnesium Iron TIBC Ferritin Total Bilirubin Direct Bilirubin AST ALT Alkaline Phosphatase Total Creatine Kinase CK-MB (CK-2) Troponin T C-Reactive Protein Total Protein Albumin Triglycerides LDL Cholesterol Direct HDL Cholesterol Free T4 PTH Intact Urine WBC (Auto) Urine Creatinine Salicylates Acetaminophen Crossmatch 03/19/19 03/19/19 03/19/19 04:00 04:00 05:35 WBC 36.5 H RBC Hgb Hct MCV RDW 15.8 H Plt Count 35 L Lymph % (Auto) [place] % (Auto) Lymph # [place] # Seg Neutrophils % Seg Neuts % (Manual) Lymphocytes % (Manual) Monocytes % (Manual) Nucleated RBC % Seg Neutrophils # Seg Neutrophils # Man Lymphocytes # (Manual) Monocytes # (Manual) PT INR D-Dimer Heparin Anti-Xa Level POC ABG pH ABG pH 7.265 L POC ABG pCO2 POC ABG pO2 ABG pO2 35.4 L* ABG HCO3 ABG O2 Saturation 54.4 L ABG Base Excess -6.7 L ABG Hemoglobin 12.9 L Oxyhemoglobin 53.4 L Sodium 132 L Potassium 5.7 H Chloride 89.8 L Carbon Dioxide 19 L BUN 62 H Creatinine 6.4 H Glucose 151 H POC Glucose Lactic Acid Calcium 5.2 L* D Ionized Calcium Phosphorus Magnesium Iron TIBC Ferritin Total Bilirubin 7.80 H Direct Bilirubin AST 682 H ALT 130 H Alkaline Phosphatase 167 H Total Creatine Kinase CK-MB (CK-2) Troponin T C-Reactive Protein Total Protein 4.8 L Albumin 2.3 L Triglycerides LDL Cholesterol Direct HDL Cholesterol Free T4 PTH Intact Urine WBC (Auto) Urine Creatinine Salicylates Acetaminophen Crossmatch 03/19/19 03/19/19 03/19/19 05:49 09:16 09:50 WBC RBC Hgb Hct MCV RDW Plt Count Lymph % (Auto) [place] % (Auto) Lymph # [place] # Seg Neutrophils % Seg Neuts % (Manual) Lymphocytes % (Manual) Monocytes % (Manual) Nucleated RBC % Seg Neutrophils # Seg Neutrophils # Man Lymphocytes # (Manual) Monocytes # (Manual) PT INR D-Dimer Heparin Anti-Xa Level POC ABG pH 7.222 L ABG pH POC ABG pCO2 56.6 H POC ABG pO2 ABG pO2 ABG HCO3 ABG O2 Saturation ABG Base Excess ABG Hemoglobin Oxyhemoglobin Sodium Potassium Chloride Carbon Dioxide BUN Creatinine Glucose POC Glucose 154 H Lactic Acid 2.70 H* Calcium Ionized Calcium Phosphorus Magnesium Iron TIBC Ferritin Total Bilirubin Direct Bilirubin AST ALT Alkaline Phosphatase Total Creatine Kinase CK-MB (CK-2) Troponin T C-Reactive Protein Total Protein Albumin Triglycerides LDL Cholesterol Direct HDL Cholesterol Free T4 PTH Intact Urine WBC (Auto) Urine Creatinine Salicylates Acetaminophen Crossmatch 03/19/19 03/19/19 03/19/19 09:50 11:28 17:58 WBC RBC Hgb Hct MCV RDW Plt Count Lymph % (Auto) [place] % (Auto) Lymph # [place] # Seg Neutrophils % Seg Neuts % (Manual) Lymphocytes % (Manual) Monocytes % (Manual) Nucleated RBC % Seg Neutrophils # Seg Neutrophils # Man Lymphocytes # (Manual) Monocytes # (Manual) PT INR D-Dimer Heparin Anti-Xa Level POC ABG pH 7.250 L ABG pH POC ABG pCO2 52.6 H POC ABG pO2 ABG pO2 ABG HCO3 ABG O2 Saturation ABG Base Excess ABG Hemoglobin Oxyhemoglobin Sodium Potassium Chloride Carbon Dioxide BUN Creatinine Glucose POC Glucose 160 H Lactic Acid Calcium Ionized Calcium Phosphorus Magnesium Iron TIBC Ferritin Total Bilirubin Direct Bilirubin AST ALT Alkaline Phosphatase Total Creatine Kinase 38644 H CK-MB (CK-2) Troponin T C-Reactive Protein Total Protein Albumin Triglycerides LDL Cholesterol Direct HDL Cholesterol Free T4 PTH Intact Urine WBC (Auto) Urine Creatinine Salicylates Acetaminophen Crossmatch 03/19/19 03/19/19 03/20/19 19:48 21:03 02:16 WBC RBC Hgb Hct MCV RDW Plt Count Lymph % (Auto) [place] % (Auto) Lymph # [place] # Seg Neutrophils % Seg Neuts % (Manual) Lymphocytes % (Manual) Monocytes % (Manual) Nucleated RBC % Seg Neutrophils # Seg Neutrophils # Man Lymphocytes # (Manual) Monocytes # (Manual) PT INR D-Dimer Heparin Anti-Xa Level POC ABG pH 7.279 L ABG pH POC ABG pCO2 50.3 H POC ABG pO2 129 H ABG pO2 ABG HCO3 ABG O2 Saturation ABG Base Excess ABG Hemoglobin Oxyhemoglobin Sodium Potassium Chloride Carbon Dioxide BUN Creatinine Glucose POC Glucose 119 H 119 H Lactic Acid Calcium Ionized Calcium Phosphorus Magnesium Iron TIBC Ferritin Total Bilirubin Direct Bilirubin AST ALT Alkaline Phosphatase Total Creatine Kinase CK-MB (CK-2) Troponin T C-Reactive Protein Total Protein Albumin Triglycerides LDL Cholesterol Direct HDL Cholesterol Free T4 PTH Intact Urine WBC (Auto) Urine Creatinine Salicylates Acetaminophen Crossmatch 03/20/19 03/20/19 03/20/19 04:23 05:05 09:30 WBC 36.3 H RBC Hgb Hct MCV RDW 15.5 H Plt Count 29 L Lymph % (Auto) [place] % (Auto) Lymph # [place] # Seg Neutrophils % Seg Neuts % (Manual) Lymphocytes % (Manual) Monocytes % (Manual) Nucleated RBC % Seg Neutrophils # Seg Neutrophils # Man Lymphocytes # (Manual) Monocytes # (Manual) PT INR D-Dimer Heparin Anti-Xa Level POC ABG pH ABG pH POC ABG pCO2 POC ABG pO2 280 H ABG pO2 ABG HCO3 ABG O2 Saturation ABG Base Excess ABG Hemoglobin Oxyhemoglobin Sodium Potassium Chloride Carbon Dioxide BUN Creatinine Glucose POC Glucose 115 H Lactic Acid Calcium Ionized Calcium Phosphorus Magnesium Iron TIBC Ferritin Total Bilirubin Direct Bilirubin AST ALT Alkaline Phosphatase Total Creatine Kinase CK-MB (CK-2) Troponin T C-Reactive Protein Total Protein Albumin Triglycerides LDL Cholesterol Direct HDL Cholesterol Free T4 PTH Intact Urine WBC (Auto) Urine Creatinine Salicylates Acetaminophen Crossmatch 03/20/19 03/20/19 03/20/19 09:30 09:30 11:34 WBC RBC Hgb Hct MCV RDW Plt Count Lymph % (Auto) [place] % (Auto) Lymph # [place] # Seg Neutrophils % Seg Neuts % (Manual) Lymphocytes % (Manual) Monocytes % (Manual) Nucleated RBC % Seg Neutrophils # Seg Neutrophils # Man Lymphocytes # (Manual) Monocytes # (Manual) PT INR D-Dimer Heparin Anti-Xa Level POC ABG pH ABG pH POC ABG pCO2 POC ABG pO2 ABG pO2 ABG HCO3 ABG O2 Saturation ABG Base Excess ABG Hemoglobin Oxyhemoglobin Sodium 131 L Potassium Chloride 92.3 L Carbon Dioxide 20 L BUN 68 H Creatinine 6.1 H Glucose 164 H POC Glucose 141 H Lactic Acid Calcium 5.3 L* Ionized Calcium Phosphorus Magnesium Iron TIBC Ferritin Total Bilirubin 9.50 H Direct Bilirubin AST 381 H ALT 116 H Alkaline Phosphatase 255 H Total Creatine Kinase 55816 H CK-MB (CK-2) Troponin T C-Reactive Protein Total Protein 5.1 L Albumin 2.3 L Triglycerides LDL Cholesterol Direct HDL Cholesterol Free T4 PTH Intact Urine WBC (Auto) Urine Creatinine Salicylates Acetaminophen Crossmatch 03/20/19 03/20/19 03/20/19 14:41 14:45 18:50 WBC RBC Hgb Hct MCV RDW Plt Count Lymph % (Auto) [place] % (Auto) Lymph # [place] # Seg Neutrophils % Seg Neuts % (Manual) Lymphocytes % (Manual) Monocytes % (Manual) Nucleated RBC % Seg Neutrophils # Seg Neutrophils # Man Lymphocytes # (Manual) Monocytes # (Manual) PT INR D-Dimer Heparin Anti-Xa Level POC ABG pH ABG pH POC ABG pCO2 POC ABG pO2 ABG pO2 ABG HCO3 ABG O2 Saturation ABG Base Excess ABG Hemoglobin Oxyhemoglobin Sodium Potassium Chloride Carbon Dioxide BUN Creatinine Glucose POC Glucose 117 H Lactic Acid 2.90 H* Calcium Ionized Calcium Phosphorus Magnesium Iron TIBC Ferritin Total Bilirubin Direct Bilirubin AST ALT Alkaline Phosphatase Total Creatine Kinase CK-MB (CK-2) Troponin T C-Reactive Protein 13.30 H Total Protein Albumin Triglycerides LDL Cholesterol Direct HDL Cholesterol Free T4 PTH Intact Urine WBC (Auto) Urine Creatinine Salicylates Acetaminophen Crossmatch 03/20/19 03/21/19 03/21/19 21:55 04:26 04:26 WBC 37.8 H RBC Hgb Hct MCV RDW 15.4 H Plt Count 36 L Lymph % (Auto) [place] % (Auto) Lymph # [place] # Seg Neutrophils % Seg Neuts % (Manual) 93.0 H Lymphocytes % (Manual) 3.0 L Monocytes % (Manual) Nucleated RBC % 1.0 H Seg Neutrophils # 34.6 H Seg Neutrophils # Man 35.2 H Lymphocytes # (Manual) 1.1 L Monocytes # (Manual) PT INR D-Dimer Heparin Anti-Xa Level POC ABG pH ABG pH POC ABG pCO2 POC ABG pO2 ABG pO2 ABG HCO3 ABG O2 Saturation ABG Base Excess ABG Hemoglobin Oxyhemoglobin Sodium 131 L Potassium Chloride 90.7 L Carbon Dioxide 21 L BUN 69 H Creatinine 5.7 H Glucose 170 H POC Glucose 128 H Lactic Acid Calcium 6.1 L D Ionized Calcium Phosphorus Magnesium Iron TIBC Ferritin Total Bilirubin 9.50 H Direct Bilirubin AST 308 H ALT 124 H Alkaline Phosphatase 327 H Total Creatine Kinase 34414 H CK-MB (CK-2) Troponin T C-Reactive Protein Total Protein 5.7 L Albumin 2.6 L Triglycerides LDL Cholesterol Direct HDL Cholesterol Free T4 PTH Intact Urine WBC (Auto) Urine Creatinine Salicylates Acetaminophen Crossmatch 03/21/19 03/21/19 03/21/19 05:17 05:39 08:29 WBC RBC Hgb Hct MCV RDW Plt Count Lymph % (Auto) [place] % (Auto) Lymph # [place] # Seg Neutrophils % Seg Neuts % (Manual) Lymphocytes % (Manual) Monocytes % (Manual) Nucleated RBC % Seg Neutrophils # Seg Neutrophils # Man Lymphocytes # (Manual) Monocytes # (Manual) PT INR D-Dimer Heparin Anti-Xa Level POC ABG pH ABG pH POC ABG pCO2 POC ABG pO2 209 H ABG pO2 ABG HCO3 ABG O2 Saturation ABG Base Excess ABG Hemoglobin Oxyhemoglobin Sodium Potassium Chloride Carbon Dioxide BUN Creatinine Glucose POC Glucose 145 H Lactic Acid Calcium Ionized Calcium Phosphorus Magnesium Iron TIBC Ferritin Total Bilirubin Direct Bilirubin AST ALT Alkaline Phosphatase Total Creatine Kinase 68283 H CK-MB (CK-2) Troponin T C-Reactive Protein Total Protein Albumin Triglycerides LDL Cholesterol Direct HDL Cholesterol Free T4 PTH Intact Urine WBC (Auto) Urine Creatinine Salicylates Acetaminophen Crossmatch 03/21/19 03/21/19 03/21/19 08:29 11:43 12:00 WBC RBC Hgb Hct MCV RDW Plt Count Lymph % (Auto) [place] % (Auto) Lymph # [place] # Seg Neutrophils % Seg Neuts % (Manual) Lymphocytes % (Manual) Monocytes % (Manual) Nucleated RBC % Seg Neutrophils # Seg Neutrophils # Man Lymphocytes # (Manual) Monocytes # (Manual) PT INR D-Dimer Heparin Anti-Xa Level POC ABG pH ABG pH POC ABG pCO2 POC ABG pO2 ABG pO2 ABG HCO3 ABG O2 Saturation ABG Base Excess ABG Hemoglobin Oxyhemoglobin Sodium Potassium Chloride Carbon Dioxide BUN Creatinine Glucose POC Glucose 123 H Lactic Acid 2.60 H* 2.20 H* Calcium Ionized Calcium Phosphorus Magnesium Iron TIBC Ferritin Total Bilirubin Direct Bilirubin AST ALT Alkaline Phosphatase Total Creatine Kinase CK-MB (CK-2) Troponin T C-Reactive Protein Total Protein Albumin Triglycerides LDL Cholesterol Direct HDL Cholesterol Free T4 PTH Intact Urine WBC (Auto) Urine Creatinine Salicylates Acetaminophen Crossmatch 03/21/19 03/21/19 03/21/19 14:11 18:28 19:32 WBC RBC Hgb Hct MCV RDW Plt Count Lymph % (Auto) [place] % (Auto) Lymph # [place] # Seg Neutrophils % Seg Neuts % (Manual) Lymphocytes % (Manual) Monocytes % (Manual) Nucleated RBC % Seg Neutrophils # Seg Neutrophils # Man Lymphocytes # (Manual) Monocytes # (Manual) PT INR D-Dimer Heparin Anti-Xa Level POC ABG pH 7.293 L ABG pH POC ABG pCO2 POC ABG pO2 ABG pO2 ABG HCO3 ABG O2 Saturation ABG Base Excess ABG Hemoglobin Oxyhemoglobin Sodium Potassium Chloride Carbon Dioxide BUN Creatinine Glucose POC Glucose 153 H Lactic Acid 2.10 H* Calcium Ionized Calcium Phosphorus Magnesium Iron TIBC Ferritin Total Bilirubin Direct Bilirubin AST ALT Alkaline Phosphatase Total Creatine Kinase CK-MB (CK-2) Troponin T C-Reactive Protein Total Protein Albumin Triglycerides LDL Cholesterol Direct HDL Cholesterol Free T4 PTH Intact Urine WBC (Auto) Urine Creatinine Salicylates Acetaminophen Crossmatch 03/21/19 03/22/19 03/22/19 23:38 05:08 05:51 WBC RBC Hgb Hct MCV RDW Plt Count Lymph % (Auto) [place] % (Auto) Lymph # [place] # Seg Neutrophils % Seg Neuts % (Manual) Lymphocytes % (Manual) Monocytes % (Manual) Nucleated RBC % Seg Neutrophils # Seg Neutrophils # Man Lymphocytes # (Manual) Monocytes # (Manual) PT INR D-Dimer Heparin Anti-Xa Level POC ABG pH 7.283 L ABG pH POC ABG pCO2 POC ABG pO2 53 L ABG pO2 ABG HCO3 ABG O2 Saturation ABG Base Excess ABG Hemoglobin Oxyhemoglobin Sodium Potassium Chloride Carbon Dioxide BUN Creatinine Glucose POC Glucose 149 H 131 H Lactic Acid Calcium Ionized Calcium Phosphorus Magnesium Iron TIBC Ferritin Total Bilirubin Direct Bilirubin AST ALT Alkaline Phosphatase Total Creatine Kinase CK-MB (CK-2) Troponin T C-Reactive Protein Total Protein Albumin Triglycerides LDL Cholesterol Direct HDL Cholesterol Free T4 PTH Intact Urine WBC (Auto) Urine Creatinine Salicylates Acetaminophen Crossmatch 03/22/19 03/22/19 03/22/19 08:00 08:00 18:19 WBC 36.7 H RBC Hgb 11.0 L Hct 33.5 L MCV RDW 15.5 H Plt Count 43 L Lymph % (Auto) [place] % (Auto) Lymph # [place] # Seg Neutrophils % Seg Neuts % (Manual) 87.0 H Lymphocytes % (Manual) 7.0 L Monocytes % (Manual) Nucleated RBC % Seg Neutrophils # Seg Neutrophils # Man 31.9 H Lymphocytes # (Manual) Monocytes # (Manual) PT INR D-Dimer Heparin Anti-Xa Level POC ABG pH ABG pH POC ABG pCO2 46.4 H POC ABG pO2 108 H ABG pO2 ABG HCO3 ABG O2 Saturation ABG Base Excess ABG Hemoglobin Oxyhemoglobin Sodium 132 L Potassium 5.6 H Chloride 89.6 L Carbon Dioxide 20 L BUN 101 H Creatinine 7.4 H Glucose 124 H POC Glucose Lactic Acid Calcium 5.2 L* Ionized Calcium Phosphorus Magnesium Iron TIBC Ferritin Total Bilirubin 2.80 H Direct Bilirubin AST 119 H ALT 86 H Alkaline Phosphatase 245 H Total Creatine Kinase CK-MB (CK-2) Troponin T C-Reactive Protein Total Protein 5.6 L Albumin 2.5 L Triglycerides LDL Cholesterol Direct HDL Cholesterol Free T4 PTH Intact Urine WBC (Auto) Urine Creatinine Salicylates Acetaminophen Crossmatch 03/22/19 03/23/19 03/23/19 20:37 04:49 05:28 WBC 35.9 H RBC Hgb 10.8 L Hct 33.2 L MCV RDW 15.5 H Plt Count 49 L Lymph % (Auto) [place] % (Auto) Lymph # [place] # Seg Neutrophils % Seg Neuts % (Manual) 81.0 H Lymphocytes % (Manual) 3.5 L Monocytes % (Manual) Nucleated RBC % Seg Neutrophils # Seg Neutrophils # Man 29.1 H Lymphocytes # (Manual) Monocytes # (Manual) 1.4 H PT INR D-Dimer Heparin Anti-Xa Level POC ABG pH 7.296 L ABG pH POC ABG pCO2 46.2 H POC ABG pO2 ABG pO2 ABG HCO3 ABG O2 Saturation ABG Base Excess ABG Hemoglobin Oxyhemoglobin Sodium 129 L Potassium 5.2 H Chloride 91.1 L Carbon Dioxide BUN 91 H Creatinine 6.6 H Glucose 190 H POC Glucose Lactic Acid Calcium 5.3 L* Ionized Calcium Phosphorus Magnesium Iron TIBC Ferritin Total Bilirubin 1.80 H Direct Bilirubin AST 80 H ALT 62 H Alkaline Phosphatase 209 H Total Creatine Kinase 9758 H CK-MB (CK-2) Troponin T C-Reactive Protein Total Protein 5.2 L Albumin 2.2 L Triglycerides LDL Cholesterol Direct HDL Cholesterol Free T4 PTH Intact Urine WBC (Auto) Urine Creatinine Salicylates Acetaminophen Crossmatch 03/23/19 03/23/19 03/23/19 05:28 05:31 11:33 WBC 29.7 H RBC 3.59 L Hgb 10.1 L Hct 31.1 L MCV RDW 15.4 H Plt Count 47 L Lymph % (Auto) [place] % (Auto) Lymph # [place] # Seg Neutrophils % Seg Neuts % (Manual) 89.0 H Lymphocytes % (Manual) 6.0 L Monocytes % (Manual) Nucleated RBC % 1.0 H Seg Neutrophils # Seg Neutrophils # Man 26.4 H Lymphocytes # (Manual) Monocytes # (Manual) PT INR D-Dimer Heparin Anti-Xa Level POC ABG pH ABG pH POC ABG pCO2 POC ABG pO2 ABG pO2 ABG HCO3 ABG O2 Saturation ABG Base Excess ABG Hemoglobin Oxyhemoglobin Sodium Potassium Chloride Carbon Dioxide BUN Creatinine Glucose POC Glucose 122 H 113 H Lactic Acid Calcium Ionized Calcium Phosphorus Magnesium Iron TIBC Ferritin Total Bilirubin Direct Bilirubin AST ALT Alkaline Phosphatase Total Creatine Kinase CK-MB (CK-2) Troponin T C-Reactive Protein Total Protein Albumin Triglycerides LDL Cholesterol Direct HDL Cholesterol Free T4 PTH Intact Urine WBC (Auto) Urine Creatinine Salicylates Acetaminophen Crossmatch 03/23/19 03/24/19 03/24/19 17:47 00:00 04:50 WBC 35.0 H RBC Hgb 10.4 L Hct 32.4 L MCV RDW Plt Count 60 L Lymph % (Auto) [place] % (Auto) Lymph # [place] # Seg Neutrophils % Seg Neuts % (Manual) 93.0 H Lymphocytes % (Manual) 5.0 L Monocytes % (Manual) Nucleated RBC % 7.0 H Seg Neutrophils # Seg Neutrophils # Man 32.6 H Lymphocytes # (Manual) Monocytes # (Manual) PT INR D-Dimer Heparin Anti-Xa Level POC ABG pH ABG pH POC ABG pCO2 POC ABG pO2 ABG pO2 ABG HCO3 ABG O2 Saturation ABG Base Excess ABG Hemoglobin Oxyhemoglobin Sodium Potassium Chloride Carbon Dioxide BUN Creatinine Glucose POC Glucose 111 H 108 H Lactic Acid Calcium Ionized Calcium Phosphorus Magnesium Iron TIBC Ferritin Total Bilirubin Direct Bilirubin AST ALT Alkaline Phosphatase Total Creatine Kinase CK-MB (CK-2) Troponin T C-Reactive Protein Total Protein Albumin Triglycerides LDL Cholesterol Direct HDL Cholesterol Free T4 PTH Intact Urine WBC (Auto) Urine Creatinine Salicylates Acetaminophen Crossmatch 03/24/19 03/24/19 03/24/19 04:50 05:06 12:55 WBC RBC Hgb Hct MCV RDW Plt Count Lymph % (Auto) [place] % (Auto) Lymph # [place] # Seg Neutrophils % Seg Neuts % (Manual) Lymphocytes % (Manual) Monocytes % (Manual) Nucleated RBC % Seg Neutrophils # Seg Neutrophils # Man Lymphocytes # (Manual) Monocytes # (Manual) PT INR D-Dimer Heparin Anti-Xa Level POC ABG pH ABG pH POC ABG pCO2 POC ABG pO2 ABG pO2 ABG HCO3 ABG O2 Saturation ABG Base Excess ABG Hemoglobin Oxyhemoglobin Sodium 134 L Potassium 5.1 H Chloride 95.3 L Carbon Dioxide 21 L BUN 85 H Creatinine 6.4 H Glucose 109 H POC Glucose 112 H 110 H Lactic Acid Calcium 5.8 L* Ionized Calcium Phosphorus Magnesium Iron TIBC Ferritin Total Bilirubin Direct Bilirubin AST ALT Alkaline Phosphatase Total Creatine Kinase 5747 H CK-MB (CK-2) Troponin T C-Reactive Protein Total Protein Albumin Triglycerides LDL Cholesterol Direct HDL Cholesterol Free T4 PTH Intact Urine WBC (Auto) Urine Creatinine Salicylates Acetaminophen Crossmatch 03/24/19 03/25/19 03/25/19 23:29 05:00 05:00 WBC RBC Hgb Hct MCV RDW Plt Count Lymph % (Auto) [place] % (Auto) Lymph # [place] # Seg Neutrophils % Seg Neuts % (Manual) Lymphocytes % (Manual) Monocytes % (Manual) Nucleated RBC % Seg Neutrophils # Seg Neutrophils # Man Lymphocytes # (Manual) Monocytes # (Manual) PT INR D-Dimer Heparin Anti-Xa Level POC ABG pH ABG pH POC ABG pCO2 POC ABG pO2 ABG pO2 ABG HCO3 ABG O2 Saturation ABG Base Excess ABG Hemoglobin Oxyhemoglobin Sodium 133 L Potassium Chloride 94.0 L Carbon Dioxide 21 L BUN 81 H Creatinine 6.4 H Glucose POC Glucose 109 H Lactic Acid Calcium 5.5 L* Ionized Calcium Phosphorus Magnesium Iron TIBC Ferritin Total Bilirubin Direct Bilirubin AST 80 H ALT Alkaline Phosphatase 202 H Total Creatine Kinase 3589 H CK-MB (CK-2) Troponin T C-Reactive Protein Total Protein 5.3 L Albumin 2.4 L Triglycerides LDL Cholesterol Direct HDL Cholesterol Free T4 PTH Intact 329.9 H Urine WBC (Auto) Urine Creatinine Salicylates Acetaminophen Crossmatch 03/25/19 03/25/19 03/26/19 05:00 06:30 04:30 WBC 23.3 H RBC 3.61 L Hgb 10.2 L Hct 31.2 L MCV RDW Plt Count 57 L Lymph % (Auto) [place] % (Auto) Lymph # [place] # Seg Neutrophils % Seg Neuts % (Manual) 92.0 H Lymphocytes % (Manual) 6.0 L Monocytes % (Manual) Nucleated RBC % Seg Neutrophils # Seg Neutrophils # Man 21.4 H Lymphocytes # (Manual) Monocytes # (Manual) PT INR D-Dimer Heparin Anti-Xa Level POC ABG pH ABG pH 7.326 L POC ABG pCO2 POC ABG pO2 ABG pO2 109.5 H 137.4 H ABG HCO3 18.8 L 18.6 L ABG O2 Saturation ABG Base Excess -4.4 L -6.8 L ABG Hemoglobin 10.1 L 9.9 L Oxyhemoglobin Sodium Potassium Chloride Carbon Dioxide BUN Creatinine Glucose POC Glucose Lactic Acid Calcium Ionized Calcium Phosphorus Magnesium Iron TIBC Ferritin Total Bilirubin Direct Bilirubin AST ALT Alkaline Phosphatase Total Creatine Kinase CK-MB (CK-2) Troponin T C-Reactive Protein Total Protein Albumin Triglycerides LDL Cholesterol Direct HDL Cholesterol Free T4 PTH Intact Urine WBC (Auto) Urine Creatinine Salicylates Acetaminophen Crossmatch 03/26/19 03/26/19 03/26/19 23:22 Unknown Unknown WBC 19.5 H RBC 3.44 L Hgb 9.8 L Hct 29.9 L MCV RDW Plt Count 85 L Lymph % (Auto) [place] % (Auto) Lymph # [place] # Seg Neutrophils % Seg Neuts % (Manual) 95.0 H Lymphocytes % (Manual) 3.0 L Monocytes % (Manual) Nucleated RBC % Seg Neutrophils # Seg Neutrophils # Man 18.5 H Lymphocytes # (Manual) 0.6 L Monocytes # (Manual) PT INR D-Dimer Heparin Anti-Xa Level POC ABG pH ABG pH POC ABG pCO2 POC ABG pO2 ABG pO2 ABG HCO3 ABG O2 Saturation ABG Base Excess ABG Hemoglobin Oxyhemoglobin Sodium 135 L Potassium 5.2 H D Chloride 92.2 L Carbon Dioxide 18 L BUN 109 H Creatinine 8.5 H Glucose 117 H POC Glucose 69 L Lactic Acid Calcium 4.5 L* D Ionized Calcium Phosphorus Magnesium Iron TIBC Ferritin Total Bilirubin Direct Bilirubin AST ALT Alkaline Phosphatase Total Creatine Kinase 4527 H CK-MB (CK-2) Troponin T C-Reactive Protein Total Protein Albumin Triglycerides LDL Cholesterol Direct HDL Cholesterol Free T4 PTH Intact Urine WBC (Auto) Urine Creatinine Salicylates Acetaminophen Crossmatch 03/27/19 03/27/19 03/27/19 04:30 04:30 09:00 WBC 19.2 H RBC 3.42 L Hgb 9.9 L Hct 30.0 L MCV RDW Plt Count 84 L Lymph % (Auto) [place] % (Auto) Lymph # [place] # Seg Neutrophils % Seg Neuts % (Manual) Lymphocytes % (Manual) Monocytes % (Manual) Nucleated RBC % Seg Neutrophils # Seg Neutrophils # Man Lymphocytes # (Manual) Monocytes # (Manual) PT INR D-Dimer Heparin Anti-Xa Level POC ABG pH ABG pH POC ABG pCO2 POC ABG pO2 ABG pO2 ABG HCO3 ABG O2 Saturation ABG Base Excess ABG Hemoglobin Oxyhemoglobin Sodium 135 L Potassium Chloride 93.5 L Carbon Dioxide BUN 84 H Creatinine 7.1 H Glucose POC Glucose Lactic Acid Calcium 5.0 L* Ionized Calcium Phosphorus Magnesium Iron TIBC Ferritin Total Bilirubin Direct Bilirubin AST 78 H ALT Alkaline Phosphatase 135 H Total Creatine Kinase 4677 H CK-MB (CK-2) Troponin T C-Reactive Protein Total Protein 4.8 L Albumin 2.3 L Triglycerides 409 H LDL Cholesterol Direct HDL Cholesterol Free T4 PTH Intact Urine WBC (Auto) Urine Creatinine Salicylates Acetaminophen Crossmatch 03/27/19 03/27/19 03/27/19 12:37 14:15 14:15 WBC RBC Hgb 9.7 L Hct 29.5 L MCV RDW Plt Count 87 L Lymph % (Auto) [place] % (Auto) Lymph # [place] # Seg Neutrophils % Seg Neuts % (Manual) Lymphocytes % (Manual) Monocytes % (Manual) Nucleated RBC % Seg Neutrophils # Seg Neutrophils # Man Lymphocytes # (Manual) Monocytes # (Manual) PT 15.9 H INR 1.30 H D-Dimer Heparin Anti-Xa Level POC ABG pH ABG pH POC ABG pCO2 POC ABG pO2 ABG pO2 ABG HCO3 ABG O2 Saturation ABG Base Excess ABG Hemoglobin Oxyhemoglobin Sodium Potassium Chloride Carbon Dioxide BUN Creatinine Glucose POC Glucose 129 H Lactic Acid Calcium Ionized Calcium Phosphorus Magnesium Iron TIBC Ferritin Total Bilirubin Direct Bilirubin AST ALT Alkaline Phosphatase Total Creatine Kinase CK-MB (CK-2) Troponin T C-Reactive Protein Total Protein Albumin Triglycerides LDL Cholesterol Direct HDL Cholesterol Free T4 PTH Intact Urine WBC (Auto) Urine Creatinine Salicylates Acetaminophen Crossmatch 03/27/19 03/27/19 03/27/19 18:00 19:22 19:23 WBC RBC Hgb Hct MCV RDW Plt Count Lymph % (Auto) [place] % (Auto) Lymph # [place] # Seg Neutrophils % Seg Neuts % (Manual) Lymphocytes % (Manual) Monocytes % (Manual) Nucleated RBC % Seg Neutrophils # Seg Neutrophils # Man Lymphocytes # (Manual) Monocytes # (Manual) PT INR D-Dimer Heparin Anti-Xa Level < 0.10 L POC ABG pH ABG pH POC ABG pCO2 POC ABG pO2 ABG pO2 ABG HCO3 ABG O2 Saturation ABG Base Excess ABG Hemoglobin Oxyhemoglobin Sodium Potassium Chloride Carbon Dioxide BUN Creatinine Glucose POC Glucose 121 H Lactic Acid Calcium Ionized Calcium Phosphorus Magnesium Iron TIBC Ferritin Total Bilirubin Direct Bilirubin AST ALT Alkaline Phosphatase Total Creatine Kinase 4517 H CK-MB (CK-2) Troponin T C-Reactive Protein Total Protein Albumin Triglycerides LDL Cholesterol Direct HDL Cholesterol Free T4 PTH Intact Urine WBC (Auto) Urine Creatinine Salicylates Acetaminophen Crossmatch 03/27/19 03/27/19 03/28/19 22:10 23:52 03:49 WBC RBC Hgb Hct MCV RDW Plt Count Lymph % (Auto) [place] % (Auto) Lymph # [place] # Seg Neutrophils % Seg Neuts % (Manual) Lymphocytes % (Manual) Monocytes % (Manual) Nucleated RBC % Seg Neutrophils # Seg Neutrophils # Man Lymphocytes # (Manual) Monocytes # (Manual) PT INR D-Dimer Heparin Anti-Xa Level POC ABG pH 7.338 L ABG pH POC ABG pCO2 33.1 L POC ABG pO2 ABG pO2 ABG HCO3 ABG O2 Saturation ABG Base Excess ABG Hemoglobin Oxyhemoglobin Sodium Potassium Chloride Carbon Dioxide BUN Creatinine Glucose POC Glucose 113 H 117 H Lactic Acid Calcium Ionized Calcium Phosphorus Magnesium Iron TIBC Ferritin Total Bilirubin Direct Bilirubin AST ALT Alkaline Phosphatase Total Creatine Kinase CK-MB (CK-2) Troponin T C-Reactive Protein Total Protein Albumin Triglycerides LDL Cholesterol Direct HDL Cholesterol Free T4 PTH Intact Urine WBC (Auto) Urine Creatinine Salicylates Acetaminophen Crossmatch 03/28/19 03/28/19 03/28/19 05:13 05:13 06:18 WBC RBC Hgb Hct MCV RDW Plt Count Lymph % (Auto) [place] % (Auto) Lymph # [place] # Seg Neutrophils % Seg Neuts % (Manual) Lymphocytes % (Manual) Monocytes % (Manual) Nucleated RBC % Seg Neutrophils # Seg Neutrophils # Man Lymphocytes # (Manual) Monocytes # (Manual) PT INR D-Dimer Heparin Anti-Xa Level 0.23 L POC ABG pH ABG pH POC ABG pCO2 POC ABG pO2 ABG pO2 ABG HCO3 ABG O2 Saturation ABG Base Excess ABG Hemoglobin Oxyhemoglobin Sodium 135 L Potassium 5.5 H D Chloride 95.1 L Carbon Dioxide 16 L D BUN 129 H Creatinine 9.3 H Glucose 158 H POC Glucose 202 H Lactic Acid Calcium 4.0 L* D Ionized Calcium Phosphorus 12.40 H Magnesium Iron TIBC Ferritin Total Bilirubin Direct Bilirubin AST ALT Alkaline Phosphatase Total Creatine Kinase 4266 H CK-MB (CK-2) Troponin T C-Reactive Protein Total Protein Albumin Triglycerides LDL Cholesterol Direct HDL Cholesterol Free T4 PTH Intact Urine WBC (Auto) Urine Creatinine Salicylates Acetaminophen Crossmatch 03/28/19 03/28/19 03/28/19 08:25 10:00 12:00 WBC RBC Hgb 4.9 L* D Hct 15.4 L* D MCV RDW Plt Count Lymph % (Auto) [place] % (Auto) Lymph # [place] # Seg Neutrophils % Seg Neuts % (Manual) Lymphocytes % (Manual) Monocytes % (Manual) Nucleated RBC % Seg Neutrophils # Seg Neutrophils # Man Lymphocytes # (Manual) Monocytes # (Manual) PT 17.9 H INR 1.52 H D-Dimer 4845.98 H Heparin Anti-Xa Level POC ABG pH ABG pH POC ABG pCO2 POC ABG pO2 ABG pO2 ABG HCO3 ABG O2 Saturation ABG Base Excess ABG Hemoglobin Oxyhemoglobin Sodium Potassium Chloride Carbon Dioxide BUN Creatinine Glucose POC Glucose Lactic Acid Calcium Ionized Calcium Phosphorus Magnesium Iron TIBC Ferritin Total Bilirubin Direct Bilirubin AST ALT Alkaline Phosphatase Total Creatine Kinase CK-MB (CK-2) Troponin T C-Reactive Protein Total Protein Albumin Triglycerides LDL Cholesterol Direct HDL Cholesterol Free T4 PTH Intact Urine WBC (Auto) Urine Creatinine Salicylates Acetaminophen Crossmatch See Detail 03/28/19 03/28/19 03/28/19 12:28 14:10 17:43 WBC RBC Hgb 5.9 L* Hct 18.3 L* MCV RDW Plt Count Lymph % (Auto) [place] % (Auto) Lymph # [place] # Seg Neutrophils % Seg Neuts % (Manual) Lymphocytes % (Manual) Monocytes % (Manual) Nucleated RBC % Seg Neutrophils # Seg Neutrophils # Man Lymphocytes # (Manual) Monocytes # (Manual) PT INR D-Dimer Heparin Anti-Xa Level POC ABG pH ABG pH POC ABG pCO2 POC ABG pO2 ABG pO2 ABG HCO3 ABG O2 Saturation ABG Base Excess ABG Hemoglobin Oxyhemoglobin Sodium Potassium Chloride Carbon Dioxide BUN Creatinine Glucose POC Glucose 153 H 159 H Lactic Acid Calcium Ionized Calcium Phosphorus Magnesium Iron TIBC Ferritin Total Bilirubin Direct Bilirubin AST ALT Alkaline Phosphatase Total Creatine Kinase CK-MB (CK-2) Troponin T C-Reactive Protein Total Protein Albumin Triglycerides LDL Cholesterol Direct HDL Cholesterol Free T4 PTH Intact Urine WBC (Auto) Urine Creatinine Salicylates Acetaminophen Crossmatch 03/28/19 03/28/19 03/28/19 18:10 Unknown 23:59 WBC 24.8 H RBC 3.42 L Hgb 10.2 L D Hct 31.1 L D MCV RDW 15.4 H Plt Count 54 L Lymph % (Auto) [place] % (Auto) Lymph # [place] # Seg Neutrophils % Seg Neuts % (Manual) 91.0 H Lymphocytes % (Manual) 8.0 L Monocytes % (Manual) Nucleated RBC % Seg Neutrophils # Seg Neutrophils # Man 22.6 H Lymphocytes # (Manual) Monocytes # (Manual) PT INR D-Dimer Heparin Anti-Xa Level POC ABG pH ABG pH POC ABG pCO2 POC ABG pO2 ABG pO2 ABG HCO3 ABG O2 Saturation ABG Base Excess ABG Hemoglobin Oxyhemoglobin Sodium Potassium 5.7 H Chloride Carbon Dioxide BUN Creatinine Glucose POC Glucose 107 H Lactic Acid Calcium Ionized Calcium Phosphorus Magnesium Iron TIBC Ferritin Total Bilirubin Direct Bilirubin AST ALT Alkaline Phosphatase Total Creatine Kinase CK-MB (CK-2) Troponin T C-Reactive Protein Total Protein Albumin Triglycerides LDL Cholesterol Direct HDL Cholesterol Free T4 PTH Intact Urine WBC (Auto) Urine Creatinine Salicylates Acetaminophen Crossmatch 03/29/19 03/29/19 03/29/19 04:29 05:46 06:22 WBC RBC Hgb 8.6 L Hct 25.7 L MCV RDW Plt Count 93 L Lymph % (Auto) [place] % (Auto) Lymph # [place] # Seg Neutrophils % Seg Neuts % (Manual) Lymphocytes % (Manual) Monocytes % (Manual) Nucleated RBC % Seg Neutrophils # Seg Neutrophils # Man Lymphocytes # (Manual) Monocytes # (Manual) PT INR D-Dimer Heparin Anti-Xa Level POC ABG pH ABG pH POC ABG pCO2 32.2 L POC ABG pO2 ABG pO2 ABG HCO3 ABG O2 Saturation ABG Base Excess ABG Hemoglobin Oxyhemoglobin Sodium Potassium Chloride Carbon Dioxide BUN Creatinine Glucose POC Glucose 113 H Lactic Acid Calcium Ionized Calcium Phosphorus Magnesium Iron TIBC Ferritin Total Bilirubin Direct Bilirubin AST ALT Alkaline Phosphatase Total Creatine Kinase CK-MB (CK-2) Troponin T C-Reactive Protein Total Protein Albumin Triglycerides LDL Cholesterol Direct HDL Cholesterol Free T4 PTH Intact Urine WBC (Auto) Urine Creatinine Salicylates Acetaminophen Crossmatch 03/29/19 03/29/19 03/29/19 06:22 06:22 06:22 WBC 23.2 H RBC 2.91 L Hgb 8.6 L Hct 25.8 L MCV RDW Plt Count 91 L Lymph % (Auto) [place] % (Auto) Lymph # [place] # Seg Neutrophils % Seg Neuts % (Manual) Lymphocytes % (Manual) Monocytes % (Manual) Nucleated RBC % Seg Neutrophils # Seg Neutrophils # Man Lymphocytes # (Manual) Monocytes # (Manual) PT INR D-Dimer Heparin Anti-Xa Level POC ABG pH ABG pH POC ABG pCO2 POC ABG pO2 ABG pO2 ABG HCO3 ABG O2 Saturation ABG Base Excess ABG Hemoglobin Oxyhemoglobin Sodium 133 L Potassium Chloride 93.8 L Carbon Dioxide 18 L BUN 109 H Creatinine 7.4 H Glucose 124 H POC Glucose Lactic Acid Calcium 4.6 L* Ionized Calcium Phosphorus Magnesium Iron TIBC Ferritin Total Bilirubin Direct Bilirubin AST ALT Alkaline Phosphatase Total Creatine Kinase 3401 H CK-MB (CK-2) Troponin T C-Reactive Protein Total Protein Albumin Triglycerides 309 H LDL Cholesterol Direct HDL Cholesterol Free T4 PTH Intact Urine WBC (Auto) Urine Creatinine Salicylates Acetaminophen Crossmatch 03/29/19 03/29/19 03/29/19 11:48 11:48 18:24 WBC RBC Hgb 7.8 L Hct 23.2 L MCV RDW Plt Count Lymph % (Auto) [place] % (Auto) Lymph # [place] # Seg Neutrophils % Seg Neuts % (Manual) Lymphocytes % (Manual) Monocytes % (Manual) Nucleated RBC % Seg Neutrophils # Seg Neutrophils # Man Lymphocytes # (Manual) Monocytes # (Manual) PT 15.3 H INR 1.24 H D-Dimer Heparin Anti-Xa Level POC ABG pH ABG pH POC ABG pCO2 POC ABG pO2 ABG pO2 ABG HCO3 ABG O2 Saturation ABG Base Excess ABG Hemoglobin Oxyhemoglobin Sodium Potassium Chloride Carbon Dioxide BUN Creatinine Glucose POC Glucose 122 H Lactic Acid Calcium Ionized Calcium Phosphorus Magnesium Iron TIBC Ferritin Total Bilirubin Direct Bilirubin AST ALT Alkaline Phosphatase Total Creatine Kinase CK-MB (CK-2) Troponin T C-Reactive Protein Total Protein Albumin Triglycerides LDL Cholesterol Direct HDL Cholesterol Free T4 PTH Intact Urine WBC (Auto) Urine Creatinine Salicylates Acetaminophen Crossmatch 03/30/19 03/30/19 03/30/19 00:40 04:31 05:04 WBC RBC Hgb 7.6 L Hct 23.0 L MCV RDW Plt Count Lymph % (Auto) [place] % (Auto) Lymph # [place] # Seg Neutrophils % Seg Neuts % (Manual) Lymphocytes % (Manual) Monocytes % (Manual) Nucleated RBC % Seg Neutrophils # Seg Neutrophils # Man Lymphocytes # (Manual) Monocytes # (Manual) PT INR D-Dimer Heparin Anti-Xa Level POC ABG pH 7.346 L ABG pH POC ABG pCO2 POC ABG pO2 62 L ABG pO2 ABG HCO3 ABG O2 Saturation ABG Base Excess ABG Hemoglobin Oxyhemoglobin Sodium Potassium Chloride Carbon Dioxide BUN 79 H Creatinine 6.4 H Glucose POC Glucose Lactic Acid Calcium 6.1 L D Ionized Calcium Phosphorus Magnesium Iron TIBC Ferritin Total Bilirubin Direct Bilirubin AST ALT Alkaline Phosphatase Total Creatine Kinase CK-MB (CK-2) Troponin T C-Reactive Protein Total Protein Albumin Triglycerides LDL Cholesterol Direct HDL Cholesterol Free T4 PTH Intact Urine WBC (Auto) Urine Creatinine Salicylates Acetaminophen Crossmatch 03/30/19 03/30/19 03/30/19 08:45 12:09 22:43 WBC 14.3 H RBC 2.33 L Hgb 7.0 L 7.4 L Hct 21.0 L 22.3 L MCV RDW 15.6 H Plt Count 135 L Lymph % (Auto) [place] % (Auto) Lymph # [place] # Seg Neutrophils % Seg Neuts % (Manual) Lymphocytes % (Manual) Monocytes % (Manual) Nucleated RBC % Seg Neutrophils # Seg Neutrophils # Man Lymphocytes # (Manual) Monocytes # (Manual) PT INR D-Dimer Heparin Anti-Xa Level POC ABG pH ABG pH POC ABG pCO2 POC ABG pO2 ABG pO2 ABG HCO3 ABG O2 Saturation ABG Base Excess ABG Hemoglobin Oxyhemoglobin Sodium Potassium Chloride Carbon Dioxide BUN Creatinine Glucose POC Glucose Lactic Acid Calcium Ionized Calcium 3.7 L Phosphorus Magnesium Iron TIBC Ferritin Total Bilirubin Direct Bilirubin AST ALT Alkaline Phosphatase Total Creatine Kinase CK-MB (CK-2) Troponin T C-Reactive Protein Total Protein Albumin Triglycerides LDL Cholesterol Direct HDL Cholesterol Free T4 PTH Intact Urine WBC (Auto) Urine Creatinine Salicylates Acetaminophen Crossmatch 03/30/19 03/30/19 03/31/19 23:38 Unknown 04:44 WBC 11.5 H RBC 2.40 L Hgb 7.3 L Hct 21.9 L MCV RDW 15.4 H Plt Count Lymph % (Auto) 10.6 L [place] % (Auto) Lymph # [place] # Seg Neutrophils % 81.7 H Seg Neuts % (Manual) Lymphocytes % (Manual) Monocytes % (Manual) Nucleated RBC % Seg Neutrophils # 9.4 H Seg Neutrophils # Man Lymphocytes # (Manual) Monocytes # (Manual) PT INR D-Dimer Heparin Anti-Xa Level POC ABG pH ABG pH POC ABG pCO2 POC ABG pO2 ABG pO2 ABG HCO3 ABG O2 Saturation ABG Base Excess ABG Hemoglobin Oxyhemoglobin Sodium Potassium Chloride Carbon Dioxide BUN Creatinine Glucose POC Glucose 155 H Lactic Acid Calcium Ionized Calcium Phosphorus Magnesium Iron TIBC Ferritin Total Bilirubin Direct Bilirubin 0.4 H AST 63 H ALT Alkaline Phosphatase Total Creatine Kinase CK-MB (CK-2) Troponin T C-Reactive Protein Total Protein 4.9 L Albumin 2.2 L Triglycerides LDL Cholesterol Direct HDL Cholesterol Free T4 PTH Intact Urine WBC (Auto) Urine Creatinine Salicylates Acetaminophen Crossmatch 03/31/19 03/31/19 03/31/19 04:44 05:44 08:20 WBC RBC Hgb Hct MCV RDW Plt Count Lymph % (Auto) [place] % (Auto) Lymph # [place] # Seg Neutrophils % Seg Neuts % (Manual) Lymphocytes % (Manual) Monocytes % (Manual) Nucleated RBC % Seg Neutrophils # Seg Neutrophils # Man Lymphocytes # (Manual) Monocytes # (Manual) PT INR D-Dimer Heparin Anti-Xa Level POC ABG pH ABG pH POC ABG pCO2 53.5 H POC ABG pO2 62 L ABG pO2 ABG HCO3 ABG O2 Saturation ABG Base Excess ABG Hemoglobin Oxyhemoglobin Sodium 135 L Potassium Chloride 96.7 L Carbon Dioxide 19 L BUN 94 H Creatinine 7.8 H Glucose POC Glucose Lactic Acid Calcium 5.3 L* Ionized Calcium Phosphorus 8.20 H Magnesium Iron TIBC Ferritin Total Bilirubin Direct Bilirubin 0.4 H AST 60 H ALT Alkaline Phosphatase Total Creatine Kinase CK-MB (CK-2) Troponin T C-Reactive Protein Total Protein 4.8 L Albumin 2.1 L Triglycerides LDL Cholesterol Direct HDL Cholesterol Free T4 PTH Intact Urine WBC (Auto) Urine Creatinine Salicylates Acetaminophen Crossmatch 03/31/19 04/01/19 04/01/19 22:14 04:27 04:27 WBC RBC 2.60 L Hgb 8.0 L Hct 24.1 L MCV RDW 15.7 H Plt Count Lymph % (Auto) 7.9 L [place] % (Auto) Lymph # 0.7 L [place] # Seg Neutrophils % 83.6 H Seg Neuts % (Manual) Lymphocytes % (Manual) Monocytes % (Manual) Nucleated RBC % Seg Neutrophils # Seg Neutrophils # Man Lymphocytes # (Manual) Monocytes # (Manual) PT INR D-Dimer Heparin Anti-Xa Level POC ABG pH 7.286 L ABG pH POC ABG pCO2 54.7 H POC ABG pO2 179 H ABG pO2 ABG HCO3 ABG O2 Saturation ABG Base Excess ABG Hemoglobin Oxyhemoglobin Sodium Potassium Chloride Carbon Dioxide BUN 68 H Creatinine 6.6 H Glucose POC Glucose Lactic Acid Calcium 6.5 L D Ionized Calcium Phosphorus 7.30 H Magnesium Iron TIBC Ferritin Total Bilirubin Direct Bilirubin AST ALT Alkaline Phosphatase Total Creatine Kinase 1652 H CK-MB (CK-2) Troponin T C-Reactive Protein Total Protein Albumin Triglycerides LDL Cholesterol Direct HDL Cholesterol Free T4 PTH Intact Urine WBC (Auto) Urine Creatinine Salicylates Acetaminophen Crossmatch 04/01/19 04/01/19 04/01/19 05:14 05:37 18:37 WBC RBC Hgb Hct MCV RDW Plt Count Lymph % (Auto) [place] % (Auto) Lymph # [place] # Seg Neutrophils % Seg Neuts % (Manual) Lymphocytes % (Manual) Monocytes % (Manual) Nucleated RBC % Seg Neutrophils # Seg Neutrophils # Man Lymphocytes # (Manual) Monocytes # (Manual) PT INR D-Dimer Heparin Anti-Xa Level POC ABG pH 7.283 L ABG pH POC ABG pCO2 53.4 H POC ABG pO2 241 H ABG pO2 ABG HCO3 ABG O2 Saturation ABG Base Excess ABG Hemoglobin Oxyhemoglobin Sodium Potassium Chloride Carbon Dioxide BUN Creatinine Glucose POC Glucose 111 H 119 H Lactic Acid Calcium Ionized Calcium Phosphorus Magnesium Iron TIBC Ferritin Total Bilirubin Direct Bilirubin AST ALT Alkaline Phosphatase Total Creatine Kinase CK-MB (CK-2) Troponin T C-Reactive Protein Total Protein Albumin Triglycerides LDL Cholesterol Direct HDL Cholesterol Free T4 PTH Intact Urine WBC (Auto) Urine Creatinine Salicylates Acetaminophen Crossmatch 04/01/19 04/02/19 04/02/19 21:28 04:40 05:03 WBC RBC 2.36 L Hgb 7.2 L Hct 21.9 L MCV RDW 16.0 H Plt Count Lymph % (Auto) 10.8 L [place] % (Auto) Lymph # 0.8 L [place] # Seg Neutrophils % 80.3 H Seg Neuts % (Manual) Lymphocytes % (Manual) Monocytes % (Manual) Nucleated RBC % Seg Neutrophils # Seg Neutrophils # Man Lymphocytes # (Manual) Monocytes # (Manual) PT INR D-Dimer Heparin Anti-Xa Level POC ABG pH 7.299 L 7.300 L ABG pH POC ABG pCO2 48.2 H 45.2 H POC ABG pO2 133 H 107 H ABG pO2 ABG HCO3 ABG O2 Saturation ABG Base Excess ABG Hemoglobin Oxyhemoglobin Sodium Potassium Chloride Carbon Dioxide BUN Creatinine Glucose POC Glucose Lactic Acid Calcium Ionized Calcium Phosphorus Magnesium Iron TIBC Ferritin Total Bilirubin Direct Bilirubin AST ALT Alkaline Phosphatase Total Creatine Kinase CK-MB (CK-2) Troponin T C-Reactive Protein Total Protein Albumin Triglycerides LDL Cholesterol Direct HDL Cholesterol Free T4 PTH Intact Urine WBC (Auto) Urine Creatinine Salicylates Acetaminophen Crossmatch 04/02/19 04/02/19 04/02/19 05:03 05:03 12:15 WBC RBC Hgb 7.4 L Hct 22.6 L MCV RDW Plt Count Lymph % (Auto) [place] % (Auto) Lymph # [place] # Seg Neutrophils % Seg Neuts % (Manual) Lymphocytes % (Manual) Monocytes % (Manual) Nucleated RBC % Seg Neutrophils # Seg Neutrophils # Man Lymphocytes # (Manual) Monocytes # (Manual) PT INR D-Dimer Heparin Anti-Xa Level POC ABG pH ABG pH POC ABG pCO2 POC ABG pO2 ABG pO2 ABG HCO3 ABG O2 Saturation ABG Base Excess ABG Hemoglobin Oxyhemoglobin Sodium 136 L Potassium Chloride 97.8 L Carbon Dioxide 18 L BUN 82 H Creatinine 8.2 H Glucose POC Glucose Lactic Acid Calcium 6.7 L Ionized Calcium Phosphorus 7.50 H Magnesium Iron 26 L TIBC 138 L Ferritin 607.0 H Total Bilirubin Direct Bilirubin AST ALT Alkaline Phosphatase Total Creatine Kinase CK-MB (CK-2) Troponin T C-Reactive Protein Total Protein Albumin Triglycerides LDL Cholesterol Direct HDL Cholesterol Free T4 PTH Intact Urine WBC (Auto) Urine Creatinine Salicylates Acetaminophen Crossmatch 04/02/19 04/02/19 04/03/19 16:34 17:14 04:18 WBC RBC Hgb Hct MCV RDW Plt Count Lymph % (Auto) [place] % (Auto) Lymph # [place] # Seg Neutrophils % Seg Neuts % (Manual) Lymphocytes % (Manual) Monocytes % (Manual) Nucleated RBC % Seg Neutrophils # Seg Neutrophils # Man Lymphocytes # (Manual) Monocytes # (Manual) PT INR D-Dimer Heparin Anti-Xa Level POC ABG pH ABG pH POC ABG pCO2 POC ABG pO2 146 H ABG pO2 ABG HCO3 ABG O2 Saturation ABG Base Excess ABG Hemoglobin Oxyhemoglobin Sodium Potassium Chloride Carbon Dioxide BUN Creatinine Glucose POC Glucose 108 H Lactic Acid Calcium Ionized Calcium Phosphorus Magnesium Iron TIBC Ferritin Total Bilirubin Direct Bilirubin AST ALT Alkaline Phosphatase Total Creatine Kinase CK-MB (CK-2) Troponin T C-Reactive Protein Total Protein Albumin Triglycerides LDL Cholesterol Direct HDL Cholesterol Free T4 PTH Intact Urine WBC (Auto) Urine Creatinine Salicylates Acetaminophen Crossmatch See Detail 04/03/19 04/03/19 04/03/19 04:25 08:30 18:24 WBC RBC 2.40 L Hgb 7.3 L Hct 21.9 L MCV RDW Plt Count Lymph % (Auto) [place] % (Auto) 7.7 H Lymph # 0.9 L [place] # Seg Neutrophils % 74.6 H Seg Neuts % (Manual) Lymphocytes % (Manual) Monocytes % (Manual) Nucleated RBC % Seg Neutrophils # Seg Neutrophils # Man Lymphocytes # (Manual) Monocytes # (Manual) PT INR D-Dimer Heparin Anti-Xa Level POC ABG pH ABG pH POC ABG pCO2 POC ABG pO2 ABG pO2 ABG HCO3 ABG O2 Saturation ABG Base Excess ABG Hemoglobin Oxyhemoglobin Sodium 136 L Potassium Chloride 97.0 L Carbon Dioxide BUN 58 H Creatinine 7.3 H Glucose POC Glucose 106 H Lactic Acid Calcium 7.5 L Ionized Calcium Phosphorus 5.80 H D Magnesium Iron TIBC Ferritin Total Bilirubin Direct Bilirubin AST ALT Alkaline Phosphatase Total Creatine Kinase CK-MB (CK-2) Troponin T C-Reactive Protein Total Protein Albumin Triglycerides LDL Cholesterol Direct HDL Cholesterol Free T4 PTH Intact Urine WBC (Auto) Urine Creatinine Salicylates Acetaminophen Crossmatch 04/03/19 04/04/19 04/04/19 23:43 04:47 04:47 WBC RBC 2.72 L Hgb 8.3 L Hct 24.7 L MCV RDW 15.6 H Plt Count Lymph % (Auto) [place] % (Auto) 10.1 H Lymph # 0.8 L [place] # Seg Neutrophils % 71.4 H Seg Neuts % (Manual) Lymphocytes % (Manual) Monocytes % (Manual) Nucleated RBC % Seg Neutrophils # Seg Neutrophils # Man Lymphocytes # (Manual) Monocytes # (Manual) PT INR D-Dimer Heparin Anti-Xa Level POC ABG pH ABG pH POC ABG pCO2 POC ABG pO2 ABG pO2 123.8 H ABG HCO3 ABG O2 Saturation ABG Base Excess -3.0 L ABG Hemoglobin 7.9 L Oxyhemoglobin Sodium 134 L Potassium Chloride 97.9 L Carbon Dioxide BUN 64 H Creatinine 8.1 H Glucose POC Glucose Lactic Acid Calcium 7.2 L Ionized Calcium Phosphorus Magnesium Iron TIBC Ferritin Total Bilirubin Direct Bilirubin AST ALT Alkaline Phosphatase Total Creatine Kinase CK-MB (CK-2) Troponin T C-Reactive Protein Total Protein Albumin Triglycerides LDL Cholesterol Direct HDL Cholesterol Free T4 PTH Intact Urine WBC (Auto) Urine Creatinine Salicylates Acetaminophen Crossmatch 04/04/19 04/04/19 04/04/19 06:07 13:40 18:18 WBC RBC Hgb Hct MCV RDW Plt Count Lymph % (Auto) [place] % (Auto) Lymph # [place] # Seg Neutrophils % Seg Neuts % (Manual) Lymphocytes % (Manual) Monocytes % (Manual) Nucleated RBC % Seg Neutrophils # Seg Neutrophils # Man Lymphocytes # (Manual) Monocytes # (Manual) PT INR D-Dimer Heparin Anti-Xa Level POC ABG pH ABG pH POC ABG pCO2 POC ABG pO2 ABG pO2 95.9 H ABG HCO3 ABG O2 Saturation ABG Base Excess -3.0 L ABG Hemoglobin 8.5 L Oxyhemoglobin Sodium Potassium Chloride Carbon Dioxide BUN Creatinine Glucose POC Glucose 107 H 107 H Lactic Acid Calcium Ionized Calcium Phosphorus Magnesium Iron TIBC Ferritin Total Bilirubin Direct Bilirubin AST ALT Alkaline Phosphatase Total Creatine Kinase CK-MB (CK-2) Troponin T C-Reactive Protein Total Protein Albumin Triglycerides LDL Cholesterol Direct HDL Cholesterol Free T4 PTH Intact Urine WBC (Auto) Urine Creatinine Salicylates Acetaminophen Crossmatch 04/04/19 04/05/19 04/05/19 21:22 04:09 04:09 WBC RBC 2.76 L Hgb 8.4 L Hct 25.4 L MCV RDW 15.8 H Plt Count 133 L Lymph % (Auto) [place] % (Auto) 9.6 H Lymph # 0.7 L [place] # Seg Neutrophils % 72.6 H Seg Neuts % (Manual) Lymphocytes % (Manual) Monocytes % (Manual) Nucleated RBC % Seg Neutrophils # Seg Neutrophils # Man Lymphocytes # (Manual) Monocytes # (Manual) PT INR D-Dimer Heparin Anti-Xa Level POC ABG pH ABG pH POC ABG pCO2 47.2 H POC ABG pO2 137 H ABG pO2 ABG HCO3 ABG O2 Saturation ABG Base Excess ABG Hemoglobin Oxyhemoglobin Sodium 136 L Potassium Chloride Carbon Dioxide BUN 46 H Creatinine 6.7 H Glucose POC Glucose Lactic Acid Calcium 7.7 L Ionized Calcium Phosphorus Magnesium Iron TIBC Ferritin Total Bilirubin Direct Bilirubin AST ALT Alkaline Phosphatase Total Creatine Kinase CK-MB (CK-2) Troponin T C-Reactive Protein Total Protein Albumin Triglycerides LDL Cholesterol Direct HDL Cholesterol Free T4 PTH Intact Urine WBC (Auto) Urine Creatinine Salicylates Acetaminophen Crossmatch 04/05/19 04/05/19 04/05/19 05:28 06:14 16:50 WBC RBC Hgb Hct MCV RDW Plt Count Lymph % (Auto) [place] % (Auto) Lymph # [place] # Seg Neutrophils % Seg Neuts % (Manual) Lymphocytes % (Manual) Monocytes % (Manual) Nucleated RBC % Seg Neutrophils # Seg Neutrophils # Man Lymphocytes # (Manual) Monocytes # (Manual) PT INR D-Dimer Heparin Anti-Xa Level POC ABG pH ABG pH POC ABG pCO2 POC ABG pO2 67 L ABG pO2 ABG HCO3 ABG O2 Saturation ABG Base Excess ABG Hemoglobin Oxyhemoglobin Sodium Potassium Chloride Carbon Dioxide BUN Creatinine Glucose POC Glucose 108 H Lactic Acid Calcium Ionized Calcium Phosphorus Magnesium Iron TIBC Ferritin Total Bilirubin Direct Bilirubin AST ALT Alkaline Phosphatase Total Creatine Kinase CK-MB (CK-2) Troponin T C-Reactive Protein Total Protein Albumin Triglycerides LDL Cholesterol Direct HDL Cholesterol Free T4 PTH Intact Urine WBC (Auto) 40.0 H Urine Creatinine Salicylates Acetaminophen Crossmatch 04/05/19 04/06/19 04/06/19 17:22 00:13 04:44 WBC RBC 2.48 L Hgb 7.5 L Hct 22.9 L MCV RDW 16.0 H Plt Count 107 L Lymph % (Auto) [place] % (Auto) 10.7 H Lymph # 1.0 L [place] # Seg Neutrophils % Seg Neuts % (Manual) Lymphocytes % (Manual) Monocytes % (Manual) Nucleated RBC % Seg Neutrophils # Seg Neutrophils # Man Lymphocytes # (Manual) Monocytes # (Manual) PT INR D-Dimer Heparin Anti-Xa Level POC ABG pH ABG pH POC ABG pCO2 POC ABG pO2 ABG pO2 ABG HCO3 ABG O2 Saturation ABG Base Excess ABG Hemoglobin Oxyhemoglobin Sodium Potassium Chloride Carbon Dioxide BUN Creatinine Glucose POC Glucose 118 H 138 H Lactic Acid Calcium Ionized Calcium Phosphorus Magnesium Iron TIBC Ferritin Total Bilirubin Direct Bilirubin AST ALT Alkaline Phosphatase Total Creatine Kinase CK-MB (CK-2) Troponin T C-Reactive Protein Total Protein Albumin Triglycerides LDL Cholesterol Direct HDL Cholesterol Free T4 PTH Intact Urine WBC (Auto) Urine Creatinine Salicylates Acetaminophen Crossmatch 04/06/19 04/06/19 04/06/19 04:44 05:20 05:23 WBC RBC Hgb Hct MCV RDW Plt Count Lymph % (Auto) [place] % (Auto) Lymph # [place] # Seg Neutrophils % Seg Neuts % (Manual) Lymphocytes % (Manual) Monocytes % (Manual) Nucleated RBC % Seg Neutrophils # Seg Neutrophils # Man Lymphocytes # (Manual) Monocytes # (Manual) PT INR D-Dimer Heparin Anti-Xa Level POC ABG pH ABG pH POC ABG pCO2 POC ABG pO2 ABG pO2 104.0 H ABG HCO3 ABG O2 Saturation ABG Base Excess -2.1 L ABG Hemoglobin 7.3 L Oxyhemoglobin Sodium Potassium Chloride Carbon Dioxide BUN 64 H Creatinine 8.2 H Glucose 103 H POC Glucose 118 H Lactic Acid Calcium 7.3 L Ionized Calcium Phosphorus Magnesium Iron TIBC Ferritin Total Bilirubin Direct Bilirubin AST ALT Alkaline Phosphatase Total Creatine Kinase CK-MB (CK-2) Troponin T C-Reactive Protein Total Protein Albumin Triglycerides LDL Cholesterol Direct HDL Cholesterol Free T4 PTH Intact Urine WBC (Auto) Urine Creatinine Salicylates Acetaminophen Crossmatch 04/06/19 04/07/19 04/07/19 12:02 05:40 05:40 WBC RBC 2.59 L Hgb 7.9 L Hct 23.8 L MCV RDW 15.8 H Plt Count 89 L Lymph % (Auto) [place] % (Auto) 10.3 H Lymph # 1.1 L [place] # Seg Neutrophils % Seg Neuts % (Manual) Lymphocytes % (Manual) Monocytes % (Manual) Nucleated RBC % Seg Neutrophils # Seg Neutrophils # Man Lymphocytes # (Manual) Monocytes # (Manual) PT INR D-Dimer Heparin Anti-Xa Level POC ABG pH ABG pH POC ABG pCO2 POC ABG pO2 ABG pO2 ABG HCO3 ABG O2 Saturation ABG Base Excess ABG Hemoglobin Oxyhemoglobin Sodium 136 L Potassium 3.5 L Chloride Carbon Dioxide BUN 46 H Creatinine 6.2 H Glucose POC Glucose 108 H Lactic Acid Calcium 7.9 L Ionized Calcium Phosphorus Magnesium Iron TIBC Ferritin Total Bilirubin Direct Bilirubin AST ALT Alkaline Phosphatase Total Creatine Kinase CK-MB (CK-2) Troponin T C-Reactive Protein Total Protein Albumin Triglycerides LDL Cholesterol Direct HDL Cholesterol Free T4 PTH Intact Urine WBC (Auto) Urine Creatinine Salicylates Acetaminophen Crossmatch 04/07/19 04/09/19 04/09/19 12:57 04:28 04:28 WBC RBC 2.85 L Hgb 8.7 L Hct 26.2 L MCV RDW 15.6 H Plt Count Lymph % (Auto) [place] % (Auto) 10.4 H Lymph # 1.0 L [place] # Seg Neutrophils % 73.3 H Seg Neuts % (Manual) Lymphocytes % (Manual) Monocytes % (Manual) Nucleated RBC % Seg Neutrophils # Seg Neutrophils # Man Lymphocytes # (Manual) Monocytes # (Manual) PT INR D-Dimer Heparin Anti-Xa Level POC ABG pH ABG pH POC ABG pCO2 POC ABG pO2 107 H ABG pO2 ABG HCO3 ABG O2 Saturation ABG Base Excess ABG Hemoglobin Oxyhemoglobin Sodium Potassium 3.5 L Chloride 97.8 L Carbon Dioxide BUN 62 H Creatinine 8.1 H Glucose POC Glucose Lactic Acid Calcium 8.2 L Ionized Calcium Phosphorus 5.10 H Magnesium Iron TIBC Ferritin Total Bilirubin Direct Bilirubin AST ALT Alkaline Phosphatase Total Creatine Kinase CK-MB (CK-2) Troponin T C-Reactive Protein Total Protein Albumin Triglycerides LDL Cholesterol Direct HDL Cholesterol Free T4 PTH Intact Urine WBC (Auto) Urine Creatinine Salicylates Acetaminophen Crossmatch 04/10/19 04/11/19 04/11/19 18:15 00:25 04:16 WBC 11.5 H RBC 2.91 L Hgb 8.9 L Hct 27.6 L MCV 95 H RDW 17.5 H Plt Count Lymph % (Auto) [place] % (Auto) Lymph # [place] # Seg Neutrophils % Seg Neuts % (Manual) 71.0 H Lymphocytes % (Manual) Monocytes % (Manual) 8.0 H Nucleated RBC % Seg Neutrophils # Seg Neutrophils # Man 8.2 H Lymphocytes # (Manual) Monocytes # (Manual) 0.9 H PT INR D-Dimer Heparin Anti-Xa Level POC ABG pH ABG pH POC ABG pCO2 POC ABG pO2 ABG pO2 ABG HCO3 ABG O2 Saturation ABG Base Excess ABG Hemoglobin Oxyhemoglobin Sodium Potassium Chloride Carbon Dioxide BUN Creatinine Glucose POC Glucose 109 H 114 H Lactic Acid Calcium Ionized Calcium Phosphorus Magnesium Iron TIBC Ferritin Total Bilirubin Direct Bilirubin AST ALT Alkaline Phosphatase Total Creatine Kinase CK-MB (CK-2) Troponin T C-Reactive Protein Total Protein Albumin Triglycerides LDL Cholesterol Direct HDL Cholesterol Free T4 PTH Intact Urine WBC (Auto) Urine Creatinine Salicylates Acetaminophen Crossmatch 04/11/19 04/11/19 04/11/19 06:47 09:21 12:15 WBC RBC Hgb Hct MCV RDW Plt Count Lymph % (Auto) [place] % (Auto) Lymph # [place] # Seg Neutrophils % Seg Neuts % (Manual) Lymphocytes % (Manual) Monocytes % (Manual) Nucleated RBC % Seg Neutrophils # Seg Neutrophils # Man Lymphocytes # (Manual) Monocytes # (Manual) PT INR D-Dimer Heparin Anti-Xa Level POC ABG pH ABG pH POC ABG pCO2 POC ABG pO2 ABG pO2 ABG HCO3 ABG O2 Saturation ABG Base Excess ABG Hemoglobin Oxyhemoglobin Sodium Potassium 3.5 L Chloride Carbon Dioxide BUN 45 H Creatinine 6.0 H Glucose 113 H POC Glucose 106 H 109 H Lactic Acid Calcium Ionized Calcium Phosphorus Magnesium Iron TIBC Ferritin Total Bilirubin Direct Bilirubin AST ALT Alkaline Phosphatase Total Creatine Kinase CK-MB (CK-2) Troponin T C-Reactive Protein Total Protein Albumin Triglycerides LDL Cholesterol Direct HDL Cholesterol Free T4 PTH Intact Urine WBC (Auto) Urine Creatinine Salicylates Acetaminophen Crossmatch 04/11/19 04/12/19 04/12/19 18:42 12:13 23:52 WBC RBC Hgb Hct MCV RDW Plt Count Lymph % (Auto) [place] % (Auto) Lymph # [place] # Seg Neutrophils % Seg Neuts % (Manual) Lymphocytes % (Manual) Monocytes % (Manual) Nucleated RBC % Seg Neutrophils # Seg Neutrophils # Man Lymphocytes # (Manual) Monocytes # (Manual) PT INR D-Dimer Heparin Anti-Xa Level POC ABG pH ABG pH POC ABG pCO2 POC ABG pO2 ABG pO2 ABG HCO3 ABG O2 Saturation ABG Base Excess ABG Hemoglobin Oxyhemoglobin Sodium Potassium Chloride Carbon Dioxide BUN Creatinine Glucose POC Glucose 107 H 115 H 124 H Lactic Acid Calcium Ionized Calcium Phosphorus Magnesium Iron TIBC Ferritin Total Bilirubin Direct Bilirubin AST ALT Alkaline Phosphatase Total Creatine Kinase CK-MB (CK-2) Troponin T C-Reactive Protein Total Protein Albumin Triglycerides LDL Cholesterol Direct HDL Cholesterol Free T4 PTH Intact Urine WBC (Auto) Urine Creatinine Salicylates Acetaminophen Crossmatch 04/13/19 04/13/19 04/13/19 05:00 05:00 05:47 WBC 11.7 H RBC 2.97 L Hgb 8.8 L Hct 27.3 L MCV RDW 16.1 H Plt Count Lymph % (Auto) 9.5 L [place] % (Auto) 9.9 H Lymph # 1.1 L [place] # 1.2 H Seg Neutrophils % 78.6 H Seg Neuts % (Manual) Lymphocytes % (Manual) Monocytes % (Manual) Nucleated RBC % Seg Neutrophils # 9.2 H Seg Neutrophils # Man Lymphocytes # (Manual) Monocytes # (Manual) PT INR D-Dimer Heparin Anti-Xa Level POC ABG pH ABG pH POC ABG pCO2 POC ABG pO2 ABG pO2 ABG HCO3 ABG O2 Saturation ABG Base Excess ABG Hemoglobin Oxyhemoglobin Sodium Potassium 3.5 L Chloride Carbon Dioxide BUN 42 H Creatinine 4.6 H Glucose 106 H POC Glucose 107 H Lactic Acid Calcium 10.6 H D Ionized Calcium Phosphorus 5.90 H Magnesium Iron TIBC Ferritin Total Bilirubin Direct Bilirubin AST ALT Alkaline Phosphatase Total Creatine Kinase CK-MB (CK-2) Troponin T C-Reactive Protein Total Protein 5.8 L Albumin 2.5 L Triglycerides LDL Cholesterol Direct HDL Cholesterol Free T4 PTH Intact Urine WBC (Auto) Urine Creatinine Salicylates Acetaminophen Crossmatch 04/13/19 04/14/19 04/14/19 17:32 00:00 03:55 WBC RBC Hgb Hct MCV RDW Plt Count Lymph % (Auto) [place] % (Auto) Lymph # [place] # Seg Neutrophils % Seg Neuts % (Manual) Lymphocytes % (Manual) Monocytes % (Manual) Nucleated RBC % Seg Neutrophils # Seg Neutrophils # Man Lymphocytes # (Manual) Monocytes # (Manual) PT INR D-Dimer Heparin Anti-Xa Level POC ABG pH ABG pH POC ABG pCO2 POC ABG pO2 ABG pO2 ABG HCO3 ABG O2 Saturation ABG Base Excess ABG Hemoglobin Oxyhemoglobin Sodium Potassium 3.0 L Chloride Carbon Dioxide BUN 30 H Creatinine 3.1 H Glucose POC Glucose 112 H 120 H Lactic Acid Calcium 10.8 H Ionized Calcium Phosphorus Magnesium Iron TIBC Ferritin Total Bilirubin Direct Bilirubin AST ALT Alkaline Phosphatase Total Creatine Kinase CK-MB (CK-2) Troponin T C-Reactive Protein Total Protein Albumin Triglycerides LDL Cholesterol Direct HDL Cholesterol Free T4 PTH Intact Urine WBC (Auto) Urine Creatinine Salicylates Acetaminophen Crossmatch 04/14/19 04/14/19 04/15/19 11:56 23:28 05:11 WBC 13.0 H RBC 2.93 L Hgb 8.6 L Hct 26.5 L MCV RDW 16.5 H Plt Count Lymph % (Auto) 12.2 L [place] % (Auto) 9.1 H Lymph # [place] # 1.2 H Seg Neutrophils % 77.6 H Seg Neuts % (Manual) Lymphocytes % (Manual) Monocytes % (Manual) Nucleated RBC % Seg Neutrophils # 10.1 H Seg Neutrophils # Man Lymphocytes # (Manual) Monocytes # (Manual) PT INR D-Dimer Heparin Anti-Xa Level POC ABG pH ABG pH POC ABG pCO2 POC ABG pO2 ABG pO2 ABG HCO3 ABG O2 Saturation ABG Base Excess ABG Hemoglobin Oxyhemoglobin Sodium Potassium Chloride Carbon Dioxide BUN Creatinine Glucose POC Glucose 109 H 112 H Lactic Acid Calcium Ionized Calcium Phosphorus Magnesium Iron TIBC Ferritin Total Bilirubin Direct Bilirubin AST ALT Alkaline Phosphatase Total Creatine Kinase CK-MB (CK-2) Troponin T C-Reactive Protein Total Protein Albumin Triglycerides LDL Cholesterol Direct HDL Cholesterol Free T4 PTH Intact Urine WBC (Auto) Urine Creatinine Salicylates Acetaminophen Crossmatch 04/15/19 04/15/1904/15/19 05:11 05:31 18:03 WBC RBC Hgb Hct MCV RDW Plt Count Lymph % (Auto) [place] % (Auto) Lymph # [place] # Seg Neutrophils % Seg Neuts % (Manual) Lymphocytes % (Manual) Monocytes % (Manual) Nucleated RBC % Seg Neutrophils # Seg Neutrophils # Man Lymphocytes # (Manual) Monocytes # (Manual) PT INR D-Dimer Heparin Anti-Xa Level POC ABG pH ABG pH POC ABG pCO2 POC ABG pO2 ABG pO2 ABG HCO3 ABG O2 Saturation ABG Base Excess ABG Hemoglobin Oxyhemoglobin Sodium Potassium 3.2 L Chloride Carbon Dioxide BUN 44 H Creatinine 3.6 H Glucose 106 H POC Glucose 110 H 121 H Lactic Acid Calcium 12.0 H Ionized Calcium Phosphorus 5.00 H Magnesium Iron TIBC Ferritin Total Bilirubin Direct Bilirubin AST ALT Alkaline Phosphatase Total Creatine Kinase CK-MB (CK-2) Troponin T C-Reactive Protein Total Protein Albumin Triglycerides LDL Cholesterol Direct HDL Cholesterol Free T4 PTH Intact Urine WBC (Auto) Urine Creatinine Salicylates Acetaminophen Crossmatch 04/16/19 04/16/19 04/17/19 05:07 05:07 04:15 WBC 12.6 H RBC 3.12 L Hgb 9.0 L Hct 28.2 L MCV RDW 16.6 H Plt Count Lymph % (Auto) 10.3 L [place] % (Auto) 9.8 H Lymph # [place] # 1.2 H Seg Neutrophils % 78.2 H Seg Neuts % (Manual) Lymphocytes % (Manual) Monocytes % (Manual) Nucleated RBC % Seg Neutrophils # 9.9 H Seg Neutrophils # Man Lymphocytes # (Manual) Monocytes # (Manual) PT INR D-Dimer Heparin Anti-Xa Level POC ABG pH ABG pH POC ABG pCO2 POC ABG pO2 ABG pO2 ABG HCO3 ABG O2 Saturation ABG Base Excess ABG Hemoglobin Oxyhemoglobin Sodium 147 H 150 H Potassium 3.5 L 3.1 L Chloride Carbon Dioxide 32 H BUN 54 H 65 H Creatinine 3.8 H 4.0 H Glucose 102 H 107 H POC Glucose Lactic Acid Calcium 11.7 H 12.0 H Ionized Calcium Phosphorus 5.40 H Magnesium Iron TIBC Ferritin Total Bilirubin Direct Bilirubin AST ALT Alkaline Phosphatase Total Creatine Kinase CK-MB (CK-2) Troponin T C-Reactive Protein 7.10 H Total Protein Albumin Triglycerides LDL Cholesterol Direct HDL Cholesterol Free T4 PTH Intact Urine WBC (Auto) Urine Creatinine Salicylates Acetaminophen Crossmatch 04/17/19 04/17/19 04:15 06:05 WBC 15.8 H RBC 3.32 L Hgb 9.5 L Hct 29.9 L MCV RDW 16.9 H Plt Count Lymph % (Auto) 12.6 L [place] % (Auto) 11.1 H Lymph # [place] # 1.7 H Seg Neutrophils % 74.7 H Seg Neuts % (Manual) Lymphocytes % (Manual) Monocytes % (Manual) Nucleated RBC % Seg Neutrophils # 11.8 H Seg Neutrophils # Man Lymphocytes # (Manual) Monocytes # (Manual) PT INR D-Dimer Heparin Anti-Xa Level POC ABG pH ABG pH POC ABG pCO2 POC ABG pO2 ABG pO2 ABG HCO3 ABG O2 Saturation ABG Base Excess ABG Hemoglobin Oxyhemoglobin Sodium Potassium Chloride Carbon Dioxide BUN Creatinine Glucose POC Glucose 111 H Lactic Acid Calcium Ionized Calcium Phosphorus Magnesium Iron TIBC Ferritin Total Bilirubin Direct Bilirubin AST ALT Alkaline Phosphatase Total Creatine Kinase CK-MB (CK-2) Troponin T C-Reactive Protein Total Protein Albumin Triglycerides LDL Cholesterol Direct HDL Cholesterol Free T4 PTH Intact Urine WBC (Auto) Urine Creatinine Salicylates Acetaminophen Crossmatch Allied health notes reviewed: nursing
[2019-04-17] MEDS: AMIODARONE 200 MG TAB PO SCH ×2 (10:35→21:58)
[2019-04-17] MEDS: METOPROLOL TARTRATE 25 MG TAB PO SCH ×2 (10:35→20:14)
[2019-04-17] MEDS: LANSOPRAZOLE 30 MG SOLUTAB FEEDTUBE SCH ×2 (10:36→21:58)
--- NOTE | 2019-04-17 13:28 | Progress Note ---
Assessment and Plan Patient is a 43 y/o man w/ a history of psychiatric illness (unknown which psychiatric diagnosis he has been given in the past), who presented on 03/16/19 with altered mental status. During the course of admission, patient was found to have sepsis with septic shock, rhabdomyolysis, RUBEN, and multiorgan failure. According to the patient's clinical findings, the patient likely has toxic metabolic encephalopathy. In support of this diagnosis, during this admission the patient has had multiple metabolic derangements including multiorgan fa ilure, sepsis, septic shock requiring pressor support, RUBEN, rhabdomyolysis. Plan: 1. Metabolic encephalopathy: - Likely due to multiple underlying metabolic derangements, including multiorgan failure, sepsis, septic shock requiring pressor support, RUBEN. - Mental status improved since admission. - Patient on antibiotics per ID. - EEG showed generalized slowing, no seizures or epileptiform activity. - Continue supportive care per ICU/primary/ID teams. - Discussed at length with patient's brother regarding current neurologic status, altered mental status due to metabolic abnormalities. -Will continue to monitor the patient's neurologic status.. Thank you for allowing me to take part in the care of this patient. Nahid Carroll MD Neurology Subjective Date of service: 04/17/19 Principal diagnosis: anemia - DVT IJ Interval history: Patient febrile overnight. Objective - Exam Narrative Exam: Patient is awake, alert, oriented to self and year, minus month, date. Following 2-step commands. PERRL, EOMI, no facial weakness noted, tongue midline, visual argueta full, bilaterally intact to light touch. Bilaterally intact light touch in all extremities.. 2+ reflexes throughout. No dysarthria or aphasia noted. 2/5 strength in bilateral upper extremities, 2/5 strength in bilateral lower extremities. - Vital Sign Vital Signs - 12hr 04/17/19 04/17/19 04/17/19 02:00 03:00 03:30 Temperature Pulse Rate 105 H 107 H 164 H Pulse Rate [ From Monitor] Respiratory 15 12 Rate Blood Pressure 138/106 122/78 122/78 O2 Sat by Pulse 95 98 Oximetry 04/17/19 04/17/19 04/17/19 04:00 04:05 05:00 Temperature 102.2 F H 101.2 F H Pulse Rate 136 H 132 H Pulse Rate [ 97 H From Monitor] Respiratory 23 16 Rate Blood Pressure 122/78 128/65 O2 Sat by Pulse 98 98 Oximetry 04/17/19 04/17/19 04/17/19 06:00 07:00 08:00 Temperature 99.1 F Pulse Rate 133 H 157 H 155 H Pulse Rate [ 148 H From Monitor] Respiratory 20 15 19 Rate Blood Pressure 121/69 121/69 137/84 O2 Sat by Pulse 95 97 94 Oximetry 04/17/19 04/17/19 04/17/19 08:39 09:00 10:00 Temperature Pulse Rate 166 H 110 H Pulse Rate [ From Monitor] Respiratory 28 H 18 Rate Blood Pressure 141/80 133/88 O2 Sat by Pulse 96 94 94 Oximetry 04/17/19 04/17/19 04/17/19 10:35 11:00 12:00 Temperature Pulse Rate 157 H 96 H 138 H Pulse Rate [ 122 H From Monitor] Respiratory 35 H 26 H Rate Blood Pressure 133/88 143/94 O2 Sat by Pulse 96 95 Oximetry - General Apperance Constitutional: comfortable - EENT EENT: ATNC, PERRL, mucous membranes moist, hearing intact, vision intact - Respiratory Respiratory: decreased breath sounds - Cardiovascular Cardiovascular: regular rate, normal S1, normal S2 Extremities: no clubbing, cyanosis, no inflammation - Gastrointestinal Gastrointestinal: normoactive bowel sounds, soft, non-tender - Psychiatric Psychiatric: mood/affect appropriate - Laboratory Findings CBC and BMP: 04/17/19 04:15 04/17/19 04:15 Abnormal Lab Findings: Abnormal Labs 03/16/19 03/16/19 03/16/19 15:32 16:03 16:05 WBC 27.0 H RBC 5.55 H Hgb 15.7 H Hct 47.1 H MCV RDW Plt Count 75 L Lymph % (Auto) [place] % (Auto) Lymph # [place] # Seg Neutrophils % Seg Neuts % (Manual) 85.0 H Lymphocytes % (Manual) 2.0 L Monocytes % (Manual) Nucleated RBC % Seg Neutrophils # Seg Neutrophils # Man 23.0 H Lymphocytes # (Manual) 0.5 L Monocytes # (Manual) PT INR D-Dimer Heparin Anti-Xa Level POC ABG pH ABG pH POC ABG pCO2 POC ABG pO2 ABG pO2 ABG HCO3 ABG O2 Saturation ABG Base Excess ABG Hemoglobin Oxyhemoglobin Sodium 127 L Potassium Chloride 87.8 L Carbon Dioxide 17 L BUN 49 H Creatinine 5.8 H Glucose 150 H POC Glucose 118 H Lactic Acid Calcium 6.6 L Ionized Calcium Phosphorus Magnesium 1.10 L Iron TIBC Ferritin Total Bilirubin Direct Bilirubin AST ALT Alkaline Phosphatase Total Creatine Kinase 00754 H CK-MB (CK-2) Troponin T C-Reactive Protein Total Protein Albumin Triglycerides LDL Cholesterol Direct HDL Cholesterol Free T4 PTH Intact Urine WBC (Auto) Urine Creatinine Salicylates Acetaminophen Crossmatch 03/16/19 03/16/19 03/16/19 16:59 17:05 17:05 WBC RBC Hgb Hct MCV RDW Plt Count Lymph % (Auto) [place] % (Auto) Lymph # [place] # Seg Neutrophils % Seg Neuts % (Manual) Lymphocytes % (Manual) Monocytes % (Manual) Nucleated RBC % Seg Neutrophils # Seg Neutrophils # Man Lymphocytes # (Manual) Monocytes # (Manual) PT INR D-Dimer Heparin Anti-Xa Level POC ABG pH 7.297 L ABG pH POC ABG pCO2 33.0 L POC ABG pO2 ABG pO2 ABG HCO3 ABG O2 Saturation ABG Base Excess ABG Hemoglobin Oxyhemoglobin Sodium Potassium Chloride Carbon Dioxide BUN Creatinine Glucose POC Glucose Lactic Acid Calcium Ionized Calcium Phosphorus Magnesium Iron TIBC Ferritin Total Bilirubin Direct Bilirubin AST ALT Alkaline Phosphatase Total Creatine Kinase 78881 H CK-MB (CK-2) 83.1 H Troponin T C-Reactive Protein Total Protein Albumin Triglycerides LDL Cholesterol Direct HDL Cholesterol Free T4 0.72 L PTH Intact Urine WBC (Auto) Urine Creatinine Salicylates Acetaminophen Crossmatch 03/16/19 03/16/19 03/16/19 17:05 17:05 17:05 WBC RBC Hgb Hct MCV RDW Plt Count Lymph % (Auto) [place] % (Auto) Lymph # [place] # Seg Neutrophils % Seg Neuts % (Manual) Lymphocytes % (Manual) Monocytes % (Manual) Nucleated RBC % Seg Neutrophils # Seg Neutrophils # Man Lymphocytes # (Manual) Monocytes # (Manual) PT INR D-Dimer Heparin Anti-Xa Level POC ABG pH ABG pH POC ABG pCO2 POC ABG pO2 ABG pO2 ABG HCO3 ABG O2 Saturation ABG Base Excess ABG Hemoglobin Oxyhemoglobin Sodium Potassium Chloride Carbon Dioxide BUN Creatinine Glucose POC Glucose Lactic Acid 5.10 H* Calcium Ionized Calcium Phosphorus Magnesium Iron TIBC Ferritin Total Bilirubin Direct Bilirubin AST ALT Alkaline Phosphatase Total Creatine Kinase CK-MB (CK-2) Troponin T C-Reactive Protein Total Protein Albumin Triglycerides LDL Cholesterol Direct HDL Cholesterol Free T4 PTH Intact Urine WBC (Auto) Urine Creatinine Salicylates < 0.3 L Acetaminophen < 5.0 L Crossmatch 03/16/19 03/16/19 03/16/19 17:05 17:05 20:35 WBC RBC Hgb Hct MCV RDW Plt Count Lymph % (Auto) [place] % (Auto) Lymph # [place] # Seg Neutrophils % Seg Neuts % (Manual) Lymphocytes % (Manual) Monocytes % (Manual) Nucleated RBC % Seg Neutrophils # Seg Neutrophils # Man Lymphocytes # (Manual) Monocytes # (Manual) PT 15.9 H INR 1.30 H D-Dimer Heparin Anti-Xa Level POC ABG pH ABG pH POC ABG pCO2 POC ABG pO2 ABG pO2 ABG HCO3 ABG O2 Saturation ABG Base Excess ABG Hemoglobin Oxyhemoglobin Sodium Potassium Chloride Carbon Dioxide BUN Creatinine Glucose POC Glucose Lactic Acid 3.30 H* Calcium Ionized Calcium Phosphorus Magnesium Iron TIBC Ferritin Total Bilirubin 6.20 H Direct Bilirubin 5.9 H AST 800 H ALT 120 H Alkaline Phosphatase Total Creatine Kinase CK-MB (CK-2) Troponin T C-Reactive Protein Total Protein 4.4 L Albumin 2.4 L Triglycerides LDL Cholesterol Direct HDL Cholesterol Free T4 PTH Intact Urine WBC (Auto) Urine Creatinine Salicylates Acetaminophen Crossmatch 03/16/19 03/16/19 03/16/19 21:45 22:32 Unknown WBC RBC Hgb Hct MCV RDW Plt Count Lymph % (Auto) [place] % (Auto) Lymph # [place] # Seg Neutrophils % Seg Neuts % (Manual) Lymphocytes % (Manual) Monocytes % (Manual) Nucleated RBC % Seg Neutrophils # Seg Neutrophils # Man Lymphocytes # (Manual) Monocytes # (Manual) PT INR D-Dimer Heparin Anti-Xa Level POC ABG pH ABG pH POC ABG pCO2 POC ABG pO2 ABG pO2 ABG HCO3 ABG O2 Saturation ABG Base Excess ABG Hemoglobin Oxyhemoglobin Sodium Potassium Chloride Carbon Dioxide BUN Creatinine Glucose POC Glucose Lactic Acid 3.30 H* 3.00 H* Calcium Ionized Calcium Phosphorus Magnesium Iron TIBC Ferritin Total Bilirubin Direct Bilirubin AST ALT Alkaline Phosphatase Total Creatine Kinase CK-MB (CK-2) Troponin T 0.047 H D C-Reactive Protein Total Protein Albumin Triglycerides 395 H LDL Cholesterol Direct 10 L HDL Cholesterol 7 L Free T4 PTH Intact Urine WBC (Auto) Urine Creatinine Salicylates Acetaminophen Crossmatch 03/17/19 03/17/19 03/17/19 03:45 03:45 03:45 WBC RBC Hgb Hct MCV RDW Plt Count Lymph % (Auto) [place] % (Auto) Lymph # [place] # Seg Neutrophils % Seg Neuts % (Manual) Lymphocytes % (Manual) Monocytes % (Manual) Nucleated RBC % Seg Neutrophils # Seg Neutrophils # Man Lymphocytes # (Manual) Monocytes # (Manual) PT INR D-Dimer Heparin Anti-Xa Level POC ABG pH ABG pH POC ABG pCO2 POC ABG pO2 ABG pO2 ABG HCO3 ABG O2 Saturation ABG Base Excess ABG Hemoglobin Oxyhemoglobin Sodium 131 L Potassium Chloride 88.9 L Carbon Dioxide BUN 53 H Creatinine 7.1 H Glucose POC Glucose Lactic Acid 4.10 H* Calcium 5.4 L* D Ionized Calcium Phosphorus 7.30 H Magnesium 1.60 L Iron TIBC Ferritin Total Bilirubin 5.90 H Direct Bilirubin AST 801 H ALT 109 H Alkaline Phosphatase Total Creatine Kinase 74506 H 26909 H CK-MB (CK-2) 41.5 H Troponin T 0.054 H C-Reactive Protein Total Protein 4.5 L Albumin 2.0 L Triglycerides LDL Cholesterol Direct HDL Cholesterol Free T4 PTH Intact Urine WBC (Auto) Urine Creatinine Salicylates Acetaminophen Crossmatch 03/17/19 03/17/19 03/17/19 05:47 07:16 07:16 WBC RBC Hgb Hct MCV RDW Plt Count Lymph % (Auto) [place] % (Auto) Lymph # [place] # Seg Neutrophils % Seg Neuts % (Manual) Lymphocytes % (Manual) Monocytes % (Manual) Nucleated RBC % Seg Neutrophils # Seg Neutrophils # Man Lymphocytes # (Manual) Monocytes # (Manual) PT INR D-Dimer Heparin Anti-Xa Level POC ABG pH 7.193 L ABG pH POC ABG pCO2 45.2 H POC ABG pO2 65 L ABG pO2 ABG HCO3 ABG O2 Saturation ABG Base Excess ABG Hemoglobin Oxyhemoglobin Sodium Potassium Chloride Carbon Dioxide BUN Creatinine Glucose POC Glucose Lactic Acid 5.50 H* Calcium Ionized Calcium Phosphorus Magnesium Iron TIBC Ferritin Total Bilirubin Direct Bilirubin AST ALT Alkaline Phosphatase Total Creatine Kinase 31002 H CK-MB (CK-2) 54.3 H Troponin T 0.058 H C-Reactive Protein Total Protein Albumin Triglycerides LDL Cholesterol Direct HDL Cholesterol Free T4 PTH Intact Urine WBC (Auto) Urine Creatinine Salicylates Acetaminophen Crossmatch 03/17/19 03/17/19 03/17/19 11:52 12:51 13:01 WBC RBC Hgb Hct MCV RDW Plt Count Lymph % (Auto) [place] % (Auto) Lymph # [place] # Seg Neutrophils % Seg Neuts % (Manual) Lymphocytes % (Manual) Monocytes % (Manual) Nucleated RBC % Seg Neutrophils # Seg Neutrophils # Man Lymphocytes # (Manual) Monocytes # (Manual) PT INR D-Dimer Heparin Anti-Xa Level POC ABG pH 7.154 L ABG pH POC ABG pCO2 34.3 L POC ABG pO2 73 L ABG pO2 ABG HCO3 ABG O2 Saturation ABG Base Excess ABG Hemoglobin Oxyhemoglobin Sodium Potassium Chloride Carbon Dioxide BUN Creatinine Glucose POC Glucose 60 L Lactic Acid 8.20 H* Calcium Ionized Calcium Phosphorus Magnesium Iron TIBC Ferritin Total Bilirubin Direct Bilirubin AST ALT Alkaline Phosphatase Total Creatine Kinase CK-MB (CK-2) Troponin T C-Reactive Protein Total Protein Albumin Triglycerides LDL Cholesterol Direct HDL Cholesterol Free T4 PTH Intact Urine WBC (Auto) Urine Creatinine Salicylates Acetaminophen Crossmatch 03/17/19 03/17/19 03/17/19 14:37 14:37 14:37 WBC 29.3 H RBC Hgb Hct MCV RDW 15.8 H Plt Count 45 L Lymph % (Auto) [place] % (Auto) Lymph # [place] # Seg Neutrophils % Seg Neuts % (Manual) 81.0 H Lymphocytes % (Manual) 1.0 L Monocytes % (Manual) 15.0 H Nucleated RBC % Seg Neutrophils # Seg Neutrophils # Man 23.7 H Lymphocytes # (Manual) 0.3 L Monocytes # (Manual) 4.4 H PT INR D-Dimer Heparin Anti-Xa Level POC ABG pH ABG pH POC ABG pCO2 POC ABG pO2 ABG pO2 ABG HCO3 ABG O2 Saturation ABG Base Excess ABG Hemoglobin Oxyhemoglobin Sodium Potassium Chloride Carbon Dioxide BUN Creatinine Glucose POC Glucose Lactic Acid 4.90 H* Calcium Ionized Calcium Phosphorus Magnesium Iron TIBC Ferritin Total Bilirubin Direct Bilirubin AST ALT Alkaline Phosphatase Total Creatine Kinase CK-MB (CK-2) Troponin T C-Reactive Protein 24.90 H Total Protein Albumin Triglycerides LDL Cholesterol Direct HDL Cholesterol Free T4 PTH Intact Urine WBC (Auto) Urine Creatinine Salicylates Acetaminophen Crossmatch 03/17/19 03/17/19 03/17/19 16:05 16:05 17:02 WBC RBC Hgb Hct MCV RDW Plt Count Lymph % (Auto) [place] % (Auto) Lymph # [place] # Seg Neutrophils % Seg Neuts % (Manual) Lymphocytes % (Manual) Monocytes % (Manual) Nucleated RBC % Seg Neutrophils # Seg Neutrophils # Man Lymphocytes # (Manual) Monocytes # (Manual) PT INR D-Dimer Heparin Anti-Xa Level POC ABG pH 7.183 L ABG pH POC ABG pCO2 POC ABG pO2 65 L ABG pO2 ABG HCO3 ABG O2 Saturation ABG Base Excess ABG Hemoglobin Oxyhemoglobin Sodium Potassium Chloride Carbon Dioxide BUN Creatinine Glucose POC Glucose Lactic Acid Calcium Ionized Calcium Phosphorus Magnesium Iron TIBC Ferritin Total Bilirubin Direct Bilirubin AST ALT Alkaline Phosphatase Total Creatine Kinase CK-MB (CK-2) Troponin T C-Reactive Protein Total Protein Albumin Triglycerides LDL Cholesterol Direct HDL Cholesterol Free T4 PTH Intact Urine WBC (Auto) 30.0 H Urine Creatinine 106.6 H Salicylates Acetaminophen Crossmatch 03/18/19 03/18/19 03/18/19 05:12 05:16 05:53 WBC RBC Hgb Hct MCV RDW Plt Count Lymph % (Auto) [place] % (Auto) Lymph # [place] # Seg Neutrophils % Seg Neuts % (Manual) Lymphocytes % (Manual) Monocytes % (Manual) Nucleated RBC % Seg Neutrophils # Seg Neutrophils # Man Lymphocytes # (Manual) Monocytes # (Manual) PT INR D-Dimer Heparin Anti-Xa Level POC ABG pH 7.257 L ABG pH POC ABG pCO2 31.6 L POC ABG pO2 69 L ABG pO2 ABG HCO3 ABG O2 Saturation ABG Base Excess ABG Hemoglobin Oxyhemoglobin Sodium Potassium Chloride Carbon Dioxide BUN Creatinine Glucose POC Glucose 141 H Lactic Acid 5.00 H* Calcium Ionized Calcium Phosphorus Magnesium Iron TIBC Ferritin Total Bilirubin Direct Bilirubin AST ALT Alkaline Phosphatase Total Creatine Kinase CK-MB (CK-2) Troponin T C-Reactive Protein Total Protein Albumin Triglycerides LDL Cholesterol Direct HDL Cholesterol Free T4 PTH Intact Urine WBC (Auto) Urine Creatinine Salicylates Acetaminophen Crossmatch 03/18/19 03/18/19 03/18/19 06:57 08:40 08:40 WBC 31.7 H RBC Hgb Hct MCV RDW 15.5 H Plt Count 35 L Lymph % (Auto) [place] % (Auto) Lymph # [place] # Seg Neutrophils % Seg Neuts % (Manual) Lymphocytes % (Manual) Monocytes % (Manual) Nucleated RBC % Seg Neutrophils # Seg Neutrophils # Man Lymphocytes # (Manual) Monocytes # (Manual) PT INR D-Dimer Heparin Anti-Xa Level POC ABG pH ABG pH POC ABG pCO2 POC ABG pO2 ABG pO2 ABG HCO3 ABG O2 Saturation ABG Base Excess ABG Hemoglobin Oxyhemoglobin Sodium 132 L Potassium 5.5 H D Chloride 88.5 L Carbon Dioxide 18 L BUN 71 H Creatinine 8.1 H Glucose 205 H POC Glucose Lactic Acid 5.00 H* Calcium 4.1 L* D Ionized Calcium Phosphorus Magnesium 2.40 H Iron TIBC Ferritin Total Bilirubin 7.50 H Direct Bilirubin AST 1088 H ALT 159 H Alkaline Phosphatase 190 H Total Creatine Kinase 251588 H CK-MB (CK-2) Troponin T C-Reactive Protein Total Protein 4.7 L Albumin 1.8 L Triglycerides LDL Cholesterol Direct HDL Cholesterol Free T4 PTH Intact Urine WBC (Auto) Urine Creatinine Salicylates Acetaminophen Crossmatch 03/18/19 03/18/19 03/18/19 12:33 12:50 13:19 WBC RBC Hgb Hct MCV RDW Plt Count Lymph % (Auto) [place] % (Auto) Lymph # [place] # Seg Neutrophils % Seg Neuts % (Manual) Lymphocytes % (Manual) Monocytes % (Manual) Nucleated RBC % Seg Neutrophils # Seg Neutrophils # Man Lymphocytes # (Manual) Monocytes # (Manual) PT INR D-Dimer Heparin Anti-Xa Level POC ABG pH 7.282 L ABG pH POC ABG pCO2 POC ABG pO2 67 L ABG pO2 ABG HCO3 ABG O2 Saturation ABG Base Excess ABG Hemoglobin Oxyhemoglobin Sodium Potassium Chloride Carbon Dioxide BUN Creatinine Glucose POC Glucose 129 H Lactic Acid 3.30 H* Calcium Ionized Calcium Phosphorus Magnesium Iron TIBC Ferritin Total Bilirubin Direct Bilirubin AST ALT Alkaline Phosphatase Total Creatine Kinase CK-MB (CK-2) Troponin T C-Reactive Protein Total Protein Albumin Triglycerides LDL Cholesterol Direct HDL Cholesterol Free T4 PTH Intact Urine WBC (Auto) Urine Creatinine Salicylates Acetaminophen Crossmatch 03/18/19 03/18/19 03/18/19 13:19 16:50 18:11 WBC RBC Hgb Hct MCV RDW Plt Count Lymph % (Auto) [place] % (Auto) Lymph # [place] # Seg Neutrophils % Seg Neuts % (Manual) Lymphocytes % (Manual) Monocytes % (Manual) Nucleated RBC % Seg Neutrophils # Seg Neutrophils # Man Lymphocytes # (Manual) Monocytes # (Manual) PT INR D-Dimer Heparin Anti-Xa Level POC ABG pH ABG pH POC ABG pCO2 POC ABG pO2 59 L ABG pO2 ABG HCO3 ABG O2 Saturation ABG Base Excess ABG Hemoglobin Oxyhemoglobin Sodium Potassium Chloride Carbon Dioxide BUN Creatinine Glucose POC Glucose 151 H Lactic Acid Calcium 4.2 L* Ionized Calcium Phosphorus Magnesium Iron TIBC Ferritin Total Bilirubin Direct Bilirubin AST ALT Alkaline Phosphatase Total Creatine Kinase 766345 H CK-MB (CK-2) Troponin T C-Reactive Protein Total Protein Albumin Triglycerides LDL Cholesterol Direct HDL Cholesterol Free T4 PTH Intact Urine WBC (Auto) Urine Creatinine Salicylates Acetaminophen Crossmatch 03/18/19 03/18/19 03/19/19 18:20 23:39 01:42 WBC RBC Hgb Hct MCV RDW Plt Count Lymph % (Auto) [place] % (Auto) Lymph # [place] # Seg Neutrophils % Seg Neuts % (Manual) Lymphocytes % (Manual) Monocytes % (Manual) Nucleated RBC % Seg Neutrophils # Seg Neutrophils # Man Lymphocytes # (Manual) Monocytes # (Manual) PT INR D-Dimer Heparin Anti-Xa Level POC ABG pH 7.345 L ABG pH 7.285 L POC ABG pCO2 POC ABG pO2 59 L ABG pO2 44.0 L ABG HCO3 ABG O2 Saturation 70.9 L ABG Base Excess -5.7 L ABG Hemoglobin 11.9 L Oxyhemoglobin 69.6 L Sodium Potassium Chloride Carbon Dioxide BUN Creatinine Glucose POC Glucose 152 H Lactic Acid Calcium Ionized Calcium Phosphorus Magnesium Iron TIBC Ferritin Total Bilirubin Direct Bilirubin AST ALT Alkaline Phosphatase Total Creatine Kinase CK-MB (CK-2) Troponin T C-Reactive Protein Total Protein Albumin Triglycerides LDL Cholesterol Direct HDL Cholesterol Free T4 PTH Intact Urine WBC (Auto) Urine Creatinine Salicylates Acetaminophen Crossmatch 03/19/19 03/19/19 03/19/19 04:00 04:00 05:35 WBC 36.5 H RBC Hgb Hct MCV RDW 15.8 H Plt Count 35 L Lymph % (Auto) [place] % (Auto) Lymph # [place] # Seg Neutrophils % Seg Neuts % (Manual) Lymphocytes % (Manual) Monocytes % (Manual) Nucleated RBC % Seg Neutrophils # Seg Neutrophils # Man Lymphocytes # (Manual) Monocytes # (Manual) PT INR D-Dimer Heparin Anti-Xa Level POC ABG pH ABG pH 7.265 L POC ABG pCO2 POC ABG pO2 ABG pO2 35.4 L* ABG HCO3 ABG O2 Saturation 54.4 L ABG Base Excess -6.7 L ABG Hemoglobin 12.9 L Oxyhemoglobin 53.4 L Sodium 132 L Potassium 5.7 H Chloride 89.8 L Carbon Dioxide 19 L BUN 62 H Creatinine 6.4 H Glucose 151 H POC Glucose Lactic Acid Calcium 5.2 L* D Ionized Calcium Phosphorus Magnesium Iron TIBC Ferritin Total Bilirubin 7.80 H Direct Bilirubin AST 682 H ALT 130 H Alkaline Phosphatase 167 H Total Creatine Kinase CK-MB (CK-2) Troponin T C-Reactive Protein Total Protein 4.8 L Albumin 2.3 L Triglycerides LDL Cholesterol Direct HDL Cholesterol Free T4 PTH Intact Urine WBC (Auto) Urine Creatinine Salicylates Acetaminophen Crossmatch 03/19/19 03/19/19 03/19/19 05:49 09:16 09:50 WBC RBC Hgb Hct MCV RDW Plt Count Lymph % (Auto) [place] % (Auto) Lymph # [place] # Seg Neutrophils % Seg Neuts % (Manual) Lymphocytes % (Manual) Monocytes % (Manual) Nucleated RBC % Seg Neutrophils # Seg Neutrophils # Man Lymphocytes # (Manual) Monocytes # (Manual) PT INR D-Dimer Heparin Anti-Xa Level POC ABG pH 7.222 L ABG pH POC ABG pCO2 56.6 H POC ABG pO2 ABG pO2 ABG HCO3 ABG O2 Saturation ABG Base Excess ABG Hemoglobin Oxyhemoglobin Sodium Potassium Chloride Carbon Dioxide BUN Creatinine Glucose POC Glucose 154 H Lactic Acid 2.70 H* Calcium Ionized Calcium Phosphorus Magnesium Iron TIBC Ferritin Total Bilirubin Direct Bilirubin AST ALT Alkaline Phosphatase Total Creatine Kinase CK-MB (CK-2) Troponin T C-Reactive Protein Total Protein Albumin Triglycerides LDL Cholesterol Direct HDL Cholesterol Free T4 PTH Intact Urine WBC (Auto) Urine Creatinine Salicylates Acetaminophen Crossmatch 03/19/19 03/19/19 03/19/19 09:50 11:28 17:58 WBC RBC Hgb Hct MCV RDW Plt Count Lymph % (Auto) [place] % (Auto) Lymph # [place] # Seg Neutrophils % Seg Neuts % (Manual) Lymphocytes % (Manual) Monocytes % (Manual) Nucleated RBC % Seg Neutrophils # Seg Neutrophils # Man Lymphocytes # (Manual) Monocytes # (Manual) PT INR D-Dimer Heparin Anti-Xa Level POC ABG pH 7.250 L ABG pH POC ABG pCO2 52.6 H POC ABG pO2 ABG pO2 ABG HCO3 ABG O2 Saturation ABG Base Excess ABG Hemoglobin Oxyhemoglobin Sodium Potassium Chloride Carbon Dioxide BUN Creatinine Glucose POC Glucose 160 H Lactic Acid Calcium Ionized Calcium Phosphorus Magnesium Iron TIBC Ferritin Total Bilirubin Direct Bilirubin AST ALT Alkaline Phosphatase Total Creatine Kinase 79931 H CK-MB (CK-2) Troponin T C-Reactive Protein Total Protein Albumin Triglycerides LDL Cholesterol Direct HDL Cholesterol Free T4 PTH Intact Urine WBC (Auto) Urine Creatinine Salicylates Acetaminophen Crossmatch 03/19/19 03/19/19 03/20/19 19:48 21:03 02:16 WBC RBC Hgb Hct MCV RDW Plt Count Lymph % (Auto) [place] % (Auto) Lymph # [place] # Seg Neutrophils % Seg Neuts % (Manual) Lymphocytes % (Manual) Monocytes % (Manual) Nucleated RBC % Seg Neutrophils # Seg Neutrophils # Man Lymphocytes # (Manual) Monocytes # (Manual) PT INR D-Dimer Heparin Anti-Xa Level POC ABG pH 7.279 L ABG pH POC ABG pCO2 50.3 H POC ABG pO2 129 H ABG pO2 ABG HCO3 ABG O2 Saturation ABG Base Excess ABG Hemoglobin Oxyhemoglobin Sodium Potassium Chloride Carbon Dioxide BUN Creatinine Glucose POC Glucose 119 H 119 H Lactic Acid Calcium Ionized Calcium Phosphorus Magnesium Iron TIBC Ferritin Total Bilirubin Direct Bilirubin AST ALT Alkaline Phosphatase Total Creatine Kinase CK-MB (CK-2) Troponin T C-Reactive Protein Total Protein Albumin Triglycerides LDL Cholesterol Direct HDL Cholesterol Free T4 PTH Intact Urine WBC (Auto) Urine Creatinine Salicylates Acetaminophen Crossmatch 03/20/19 03/20/19 03/20/19 04:23 05:05 09:30 WBC 36.3 H RBC Hgb Hct MCV RDW 15.5 H Plt Count 29 L Lymph % (Auto) [place] % (Auto) Lymph # [place] # Seg Neutrophils % Seg Neuts % (Manual) Lymphocytes % (Manual) Monocytes % (Manual) Nucleated RBC % Seg Neutrophils # Seg Neutrophils # Man Lymphocytes # (Manual) Monocytes # (Manual) PT INR D-Dimer Heparin Anti-Xa Level POC ABG pH ABG pH POC ABG pCO2 POC ABG pO2 280 H ABG pO2 ABG HCO3 ABG O2 Saturation ABG Base Excess ABG Hemoglobin Oxyhemoglobin Sodium Potassium Chloride Carbon Dioxide BUN Creatinine Glucose POC Glucose 115 H Lactic Acid Calcium Ionized Calcium Phosphorus Magnesium Iron TIBC Ferritin Total Bilirubin Direct Bilirubin AST ALT Alkaline Phosphatase Total Creatine Kinase CK-MB (CK-2) Troponin T C-Reactive Protein Total Protein Albumin Triglycerides LDL Cholesterol Direct HDL Cholesterol Free T4 PTH Intact Urine WBC (Auto) Urine Creatinine Salicylates Acetaminophen Crossmatch 03/20/19 03/20/19 03/20/19 09:30 09:30 11:34 WBC RBC Hgb Hct MCV RDW Plt Count Lymph % (Auto) [place] % (Auto) Lymph # [place] # Seg Neutrophils % Seg Neuts % (Manual) Lymphocytes % (Manual) Monocytes % (Manual) Nucleated RBC % Seg Neutrophils # Seg Neutrophils # Man Lymphocytes # (Manual) Monocytes # (Manual) PT INR D-Dimer Heparin Anti-Xa Level POC ABG pH ABG pH POC ABG pCO2 POC ABG pO2 ABG pO2 ABG HCO3 ABG O2 Saturation ABG Base Excess ABG Hemoglobin Oxyhemoglobin Sodium 131 L Potassium Chloride 92.3 L Carbon Dioxide 20 L BUN 68 H Creatinine 6.1 H Glucose 164 H POC Glucose 141 H Lactic Acid Calcium 5.3 L* Ionized Calcium Phosphorus Magnesium Iron TIBC Ferritin Total Bilirubin 9.50 H Direct Bilirubin AST 381 H ALT 116 H Alkaline Phosphatase 255 H Total Creatine Kinase 45116 H CK-MB (CK-2) Troponin T C-Reactive Protein Total Protein 5.1 L Albumin 2.3 L Triglycerides LDL Cholesterol Direct HDL Cholesterol Free T4 PTH Intact Urine WBC (Auto) Urine Creatinine Salicylates Acetaminophen Crossmatch 03/20/19 03/20/19 03/20/19 14:41 14:45 18:50 WBC RBC Hgb Hct MCV RDW Plt Count Lymph % (Auto) [place] % (Auto) Lymph # [place] # Seg Neutrophils % Seg Neuts % (Manual) Lymphocytes % (Manual) Monocytes % (Manual) Nucleated RBC % Seg Neutrophils # Seg Neutrophils # Man Lymphocytes # (Manual) Monocytes # (Manual) PT INR D-Dimer Heparin Anti-Xa Level POC ABG pH ABG pH POC ABG pCO2 POC ABG pO2 ABG pO2 ABG HCO3 ABG O2 Saturation ABG Base Excess ABG Hemoglobin Oxyhemoglobin Sodium Potassium Chloride Carbon Dioxide BUN Creatinine Glucose POC Glucose 117 H Lactic Acid 2.90 H* Calcium Ionized Calcium Phosphorus Magnesium Iron TIBC Ferritin Total Bilirubin Direct Bilirubin AST ALT Alkaline Phosphatase Total Creatine Kinase CK-MB (CK-2) Troponin T C-Reactive Protein 13.30 H Total Protein Albumin Triglycerides LDL Cholesterol Direct HDL Cholesterol Free T4 PTH Intact Urine WBC (Auto) Urine Creatinine Salicylates Acetaminophen Crossmatch 03/20/19 03/21/19 03/21/19 21:55 04:26 04:26 WBC 37.8 H RBC Hgb Hct MCV RDW 15.4 H Plt Count 36 L Lymph % (Auto) [place] % (Auto) Lymph # [place] # Seg Neutrophils % Seg Neuts % (Manual) 93.0 H Lymphocytes % (Manual) 3.0 L Monocytes % (Manual) Nucleated RBC % 1.0 H Seg Neutrophils # 34.6 H Seg Neutrophils # Man 35.2 H Lymphocytes # (Manual) 1.1 L Monocytes # (Manual) PT INR D-Dimer Heparin Anti-Xa Level POC ABG pH ABG pH POC ABG pCO2 POC ABG pO2 ABG pO2 ABG HCO3 ABG O2 Saturation ABG Base Excess ABG Hemoglobin Oxyhemoglobin Sodium 131 L Potassium Chloride 90.7 L Carbon Dioxide 21 L BUN 69 H Creatinine 5.7 H Glucose 170 H POC Glucose 128 H Lactic Acid Calcium 6.1 L D Ionized Calcium Phosphorus Magnesium Iron TIBC Ferritin Total Bilirubin 9.50 H Direct Bilirubin AST 308 H ALT 124 H Alkaline Phosphatase 327 H Total Creatine Kinase 44957 H CK-MB (CK-2) Troponin T C-Reactive Protein Total Protein 5.7 L Albumin 2.6 L Triglycerides LDL Cholesterol Direct HDL Cholesterol Free T4 PTH Intact Urine WBC (Auto) Urine Creatinine Salicylates Acetaminophen Crossmatch 03/21/19 03/21/19 03/21/19 05:17 05:39 08:29 WBC RBC Hgb Hct MCV RDW Plt Count Lymph % (Auto) [place] % (Auto) Lymph # [place] # Seg Neutrophils % Seg Neuts % (Manual) Lymphocytes % (Manual) Monocytes % (Manual) Nucleated RBC % Seg Neutrophils # Seg Neutrophils # Man Lymphocytes # (Manual) Monocytes # (Manual) PT INR D-Dimer Heparin Anti-Xa Level POC ABG pH ABG pH POC ABG pCO2 POC ABG pO2 209 H ABG pO2 ABG HCO3 ABG O2 Saturation ABG Base Excess ABG Hemoglobin Oxyhemoglobin Sodium Potassium Chloride Carbon Dioxide BUN Creatinine Glucose POC Glucose 145 H Lactic Acid Calcium Ionized Calcium Phosphorus Magnesium Iron TIBC Ferritin Total Bilirubin Direct Bilirubin AST ALT Alkaline Phosphatase Total Creatine Kinase 96547 H CK-MB (CK-2) Troponin T C-Reactive Protein Total Protein Albumin Triglycerides LDL Cholesterol Direct HDL Cholesterol Free T4 PTH Intact Urine WBC (Auto) Urine Creatinine Salicylates Acetaminophen Crossmatch 03/21/19 03/21/19 03/21/19 08:29 11:43 12:00 WBC RBC Hgb Hct MCV RDW Plt Count Lymph % (Auto) [place] % (Auto) Lymph # [place] # Seg Neutrophils % Seg Neuts % (Manual) Lymphocytes % (Manual) Monocytes % (Manual) Nucleated RBC % Seg Neutrophils # Seg Neutrophils # Man Lymphocytes # (Manual) Monocytes # (Manual) PT INR D-Dimer Heparin Anti-Xa Level POC ABG pH ABG pH POC ABG pCO2 POC ABG pO2 ABG pO2 ABG HCO3 ABG O2 Saturation ABG Base Excess ABG Hemoglobin Oxyhemoglobin Sodium Potassium Chloride Carbon Dioxide BUN Creatinine Glucose POC Glucose 123 H Lactic Acid 2.60 H* 2.20 H* Calcium Ionized Calcium Phosphorus Magnesium Iron TIBC Ferritin Total Bilirubin Direct Bilirubin AST ALT Alkaline Phosphatase Total Creatine Kinase CK-MB (CK-2) Troponin T C-Reactive Protein Total Protein Albumin Triglycerides LDL Cholesterol Direct HDL Cholesterol Free T4 PTH Intact Urine WBC (Auto) Urine Creatinine Salicylates Acetaminophen Crossmatch 03/21/19 03/21/19 03/21/19 14:11 18:28 19:32 WBC RBC Hgb Hct MCV RDW Plt Count Lymph % (Auto) [place] % (Auto) Lymph # [place] # Seg Neutrophils % Seg Neuts % (Manual) Lymphocytes % (Manual) Monocytes % (Manual) Nucleated RBC % Seg Neutrophils # Seg Neutrophils # Man Lymphocytes # (Manual) Monocytes # (Manual) PT INR D-Dimer Heparin Anti-Xa Level POC ABG pH 7.293 L ABG pH POC ABG pCO2 POC ABG pO2 ABG pO2 ABG HCO3 ABG O2 Saturation ABG Base Excess ABG Hemoglobin Oxyhemoglobin Sodium Potassium Chloride Carbon Dioxide BUN Creatinine Glucose POC Glucose 153 H Lactic Acid 2.10 H* Calcium Ionized Calcium Phosphorus Magnesium Iron TIBC Ferritin Total Bilirubin Direct Bilirubin AST ALT Alkaline Phosphatase Total Creatine Kinase CK-MB (CK-2) Troponin T C-Reactive Protein Total Protein Albumin Triglycerides LDL Cholesterol Direct HDL Cholesterol Free T4 PTH Intact Urine WBC (Auto) Urine Creatinine Salicylates Acetaminophen Crossmatch 03/21/19 03/22/19 03/22/19 23:38 05:08 05:51 WBC RBC Hgb Hct MCV RDW Plt Count Lymph % (Auto) [place] % (Auto) Lymph # [place] # Seg Neutrophils % Seg Neuts % (Manual) Lymphocytes % (Manual) Monocytes % (Manual) Nucleated RBC % Seg Neutrophils # Seg Neutrophils # Man Lymphocytes # (Manual) Monocytes # (Manual) PT INR D-Dimer Heparin Anti-Xa Level POC ABG pH 7.283 L ABG pH POC ABG pCO2 POC ABG pO2 53 L ABG pO2 ABG HCO3 ABG O2 Saturation ABG Base Excess ABG Hemoglobin Oxyhemoglobin Sodium Potassium Chloride Carbon Dioxide BUN Creatinine Glucose POC Glucose 149 H 131 H Lactic Acid Calcium Ionized Calcium Phosphorus Magnesium Iron TIBC Ferritin Total Bilirubin Direct Bilirubin AST ALT Alkaline Phosphatase Total Creatine Kinase CK-MB (CK-2) Troponin T C-Reactive Protein Total Protein Albumin Triglycerides LDL Cholesterol Direct HDL Cholesterol Free T4 PTH Intact Urine WBC (Auto) Urine Creatinine Salicylates Acetaminophen Crossmatch 03/22/19 03/22/19 03/22/19 08:00 08:00 18:19 WBC 36.7 H RBC Hgb 11.0 L Hct 33.5 L MCV RDW 15.5 H Plt Count 43 L Lymph % (Auto) [place] % (Auto) Lymph # [place] # Seg Neutrophils % Seg Neuts % (Manual) 87.0 H Lymphocytes % (Manual) 7.0 L Monocytes % (Manual) Nucleated RBC % Seg Neutrophils # Seg Neutrophils # Man 31.9 H Lymphocytes # (Manual) Monocytes # (Manual) PT INR D-Dimer Heparin Anti-Xa Level POC ABG pH ABG pH POC ABG pCO2 46.4 H POC ABG pO2 108 H ABG pO2 ABG HCO3 ABG O2 Saturation ABG Base Excess ABG Hemoglobin Oxyhemoglobin Sodium 132 L Potassium 5.6 H Chloride 89.6 L Carbon Dioxide 20 L BUN 101 H Creatinine 7.4 H Glucose 124 H POC Glucose Lactic Acid Calcium 5.2 L* Ionized Calcium Phosphorus Magnesium Iron TIBC Ferritin Total Bilirubin 2.80 H Direct Bilirubin AST 119 H ALT 86 H Alkaline Phosphatase 245 H Total Creatine Kinase CK-MB (CK-2) Troponin T C-Reactive Protein Total Protein 5.6 L Albumin 2.5 L Triglycerides LDL Cholesterol Direct HDL Cholesterol Free T4 PTH Intact Urine WBC (Auto) Urine Creatinine Salicylates Acetaminophen Crossmatch 03/22/19 03/23/19 03/23/19 20:37 04:49 05:28 WBC 35.9 H RBC Hgb 10.8 L Hct 33.2 L MCV RDW 15.5 H Plt Count 49 L Lymph % (Auto) [place] % (Auto) Lymph # [place] # Seg Neutrophils % Seg Neuts % (Manual) 81.0 H Lymphocytes % (Manual) 3.5 L Monocytes % (Manual) Nucleated RBC % Seg Neutrophils # Seg Neutrophils # Man 29.1 H Lymphocytes # (Manual) Monocytes # (Manual) 1.4 H PT INR D-Dimer Heparin Anti-Xa Level POC ABG pH 7.296 L ABG pH POC ABG pCO2 46.2 H POC ABG pO2 ABG pO2 ABG HCO3 ABG O2 Saturation ABG Base Excess ABG Hemoglobin Oxyhemoglobin Sodium 129 L Potassium 5.2 H Chloride 91.1 L Carbon Dioxide BUN 91 H Creatinine 6.6 H Glucose 190 H POC Glucose Lactic Acid Calcium 5.3 L* Ionized Calcium Phosphorus Magnesium Iron TIBC Ferritin Total Bilirubin 1.80 H Direct Bilirubin AST 80 H ALT 62 H Alkaline Phosphatase 209 H Total Creatine Kinase 9758 H CK-MB (CK-2) Troponin T C-Reactive Protein Total Protein 5.2 L Albumin 2.2 L Triglycerides LDL Cholesterol Direct HDL Cholesterol Free T4 PTH Intact Urine WBC (Auto) Urine Creatinine Salicylates Acetaminophen Crossmatch 03/23/19 03/23/19 03/23/19 05:28 05:31 11:33 WBC 29.7 H RBC 3.59 L Hgb 10.1 L Hct 31.1 L MCV RDW 15.4 H Plt Count 47 L Lymph % (Auto) [place] % (Auto) Lymph # [place] # Seg Neutrophils % Seg Neuts % (Manual) 89.0 H Lymphocytes % (Manual) 6.0 L Monocytes % (Manual) Nucleated RBC % 1.0 H Seg Neutrophils # Seg Neutrophils # Man 26.4 H Lymphocytes # (Manual) Monocytes # (Manual) PT INR D-Dimer Heparin Anti-Xa Level POC ABG pH ABG pH POC ABG pCO2 POC ABG pO2 ABG pO2 ABG HCO3 ABG O2 Saturation ABG Base Excess ABG Hemoglobin Oxyhemoglobin Sodium Potassium Chloride Carbon Dioxide BUN Creatinine Glucose POC Glucose 122 H 113 H Lactic Acid Calcium Ionized Calcium Phosphorus Magnesium Iron TIBC Ferritin Total Bilirubin Direct Bilirubin AST ALT Alkaline Phosphatase Total Creatine Kinase CK-MB (CK-2) Troponin T C-Reactive Protein Total Protein Albumin Triglycerides LDL Cholesterol Direct HDL Cholesterol Free T4 PTH Intact Urine WBC (Auto) Urine Creatinine Salicylates Acetaminophen Crossmatch 03/23/19 03/24/19 03/24/19 17:47 00:00 04:50 WBC 35.0 H RBC Hgb 10.4 L Hct 32.4 L MCV RDW Plt Count 60 L Lymph % (Auto) [place] % (Auto) Lymph # [place] # Seg Neutrophils % Seg Neuts % (Manual) 93.0 H Lymphocytes % (Manual) 5.0 L Monocytes % (Manual) Nucleated RBC % 7.0 H Seg Neutrophils # Seg Neutrophils # Man 32.6 H Lymphocytes # (Manual) Monocytes # (Manual) PT INR D-Dimer Heparin Anti-Xa Level POC ABG pH ABG pH POC ABG pCO2 POC ABG pO2 ABG pO2 ABG HCO3 ABG O2 Saturation ABG Base Excess ABG Hemoglobin Oxyhemoglobin Sodium Potassium Chloride Carbon Dioxide BUN Creatinine Glucose POC Glucose 111 H 108 H Lactic Acid Calcium Ionized Calcium Phosphorus Magnesium Iron TIBC Ferritin Total Bilirubin Direct Bilirubin AST ALT Alkaline Phosphatase Total Creatine Kinase CK-MB (CK-2) Troponin T C-Reactive Protein Total Protein Albumin Triglycerides LDL Cholesterol Direct HDL Cholesterol Free T4 PTH Intact Urine WBC (Auto) Urine Creatinine Salicylates Acetaminophen Crossmatch 03/24/19 03/24/19 03/24/19 04:50 05:06 12:55 WBC RBC Hgb Hct MCV RDW Plt Count Lymph % (Auto) [place] % (Auto) Lymph # [place] # Seg Neutrophils % Seg Neuts % (Manual) Lymphocytes % (Manual) Monocytes % (Manual) Nucleated RBC % Seg Neutrophils # Seg Neutrophils # Man Lymphocytes # (Manual) Monocytes # (Manual) PT INR D-Dimer Heparin Anti-Xa Level POC ABG pH ABG pH POC ABG pCO2 POC ABG pO2 ABG pO2 ABG HCO3 ABG O2 Saturation ABG Base Excess ABG Hemoglobin Oxyhemoglobin Sodium 134 L Potassium 5.1 H Chloride 95.3 L Carbon Dioxide 21 L BUN 85 H Creatinine 6.4 H Glucose 109 H POC Glucose 112 H 110 H Lactic Acid Calcium 5.8 L* Ionized Calcium Phosphorus Magnesium Iron TIBC Ferritin Total Bilirubin Direct Bilirubin AST ALT Alkaline Phosphatase Total Creatine Kinase 5747 H CK-MB (CK-2) Troponin T C-Reactive Protein Total Protein Albumin Triglycerides LDL Cholesterol Direct HDL Cholesterol Free T4 PTH Intact Urine WBC (Auto) Urine Creatinine Salicylates Acetaminophen Crossmatch 03/24/19 03/25/19 03/25/19 23:29 05:00 05:00 WBC RBC Hgb Hct MCV RDW Plt Count Lymph % (Auto) [place] % (Auto) Lymph # [place] # Seg Neutrophils % Seg Neuts % (Manual) Lymphocytes % (Manual) Monocytes % (Manual) Nucleated RBC % Seg Neutrophils # Seg Neutrophils # Man Lymphocytes # (Manual) Monocytes # (Manual) PT INR D-Dimer Heparin Anti-Xa Level POC ABG pH ABG pH POC ABG pCO2 POC ABG pO2 ABG pO2 ABG HCO3 ABG O2 Saturation ABG Base Excess ABG Hemoglobin Oxyhemoglobin Sodium 133 L Potassium Chloride 94.0 L Carbon Dioxide 21 L BUN 81 H Creatinine 6.4 H Glucose POC Glucose 109 H Lactic Acid Calcium 5.5 L* Ionized Calcium Phosphorus Magnesium Iron TIBC Ferritin Total Bilirubin Direct Bilirubin AST 80 H ALT Alkaline Phosphatase 202 H Total Creatine Kinase 3589 H CK-MB (CK-2) Troponin T C-Reactive Protein Total Protein 5.3 L Albumin 2.4 L Triglycerides LDL Cholesterol Direct HDL Cholesterol Free T4 PTH Intact 329.9 H Urine WBC (Auto) Urine Creatinine Salicylates Acetaminophen Crossmatch 03/25/19 03/25/19 03/26/19 05:00 06:30 04:30 WBC 23.3 H RBC 3.61 L Hgb 10.2 L Hct 31.2 L MCV RDW Plt Count 57 L Lymph % (Auto) [place] % (Auto) Lymph # [place] # Seg Neutrophils % Seg Neuts % (Manual) 92.0 H Lymphocytes % (Manual) 6.0 L Monocytes % (Manual) Nucleated RBC % Seg Neutrophils # Seg Neutrophils # Man 21.4 H Lymphocytes # (Manual) Monocytes # (Manual) PT INR D-Dimer Heparin Anti-Xa Level POC ABG pH ABG pH 7.326 L POC ABG pCO2 POC ABG pO2 ABG pO2 109.5 H 137.4 H ABG HCO3 18.8 L 18.6 L ABG O2 Saturation ABG Base Excess -4.4 L -6.8 L ABG Hemoglobin 10.1 L 9.9 L Oxyhemoglobin Sodium Potassium Chloride Carbon Dioxide BUN Creatinine Glucose POC Glucose Lactic Acid Calcium Ionized Calcium Phosphorus Magnesium Iron TIBC Ferritin Total Bilirubin Direct Bilirubin AST ALT Alkaline Phosphatase Total Creatine Kinase CK-MB (CK-2) Troponin T C-Reactive Protein Total Protein Albumin Triglycerides LDL Cholesterol Direct HDL Cholesterol Free T4 PTH Intact Urine WBC (Auto) Urine Creatinine Salicylates Acetaminophen Crossmatch 03/26/19 03/26/19 03/26/19 23:22 Unknown Unknown WBC 19.5 H RBC 3.44 L Hgb 9.8 L Hct 29.9 L MCV RDW Plt Count 85 L Lymph % (Auto) [place] % (Auto) Lymph # [place] # Seg Neutrophils % Seg Neuts % (Manual) 95.0 H Lymphocytes % (Manual) 3.0 L Monocytes % (Manual) Nucleated RBC % Seg Neutrophils # Seg Neutrophils # Man 18.5 H Lymphocytes # (Manual) 0.6 L Monocytes # (Manual) PT INR D-Dimer Heparin Anti-Xa Level POC ABG pH ABG pH POC ABG pCO2 POC ABG pO2 ABG pO2 ABG HCO3 ABG O2 Saturation ABG Base Excess ABG Hemoglobin Oxyhemoglobin Sodium 135 L Potassium 5.2 H D Chloride 92.2 L Carbon Dioxide 18 L BUN 109 H Creatinine 8.5 H Glucose 117 H POC Glucose 69 L Lactic Acid Calcium 4.5 L* D Ionized Calcium Phosphorus Magnesium Iron TIBC Ferritin Total Bilirubin Direct Bilirubin AST ALT Alkaline Phosphatase Total Creatine Kinase 4527 H CK-MB (CK-2) Troponin T C-Reactive Protein Total Protein Albumin Triglycerides LDL Cholesterol Direct HDL Cholesterol Free T4 PTH Intact Urine WBC (Auto) Urine Creatinine Salicylates Acetaminophen Crossmatch 03/27/19 03/27/19 03/27/19 04:30 04:30 09:00 WBC 19.2 H RBC 3.42 L Hgb 9.9 L Hct 30.0 L MCV RDW Plt Count 84 L Lymph % (Auto) [place] % (Auto) Lymph # [place] # Seg Neutrophils % Seg Neuts % (Manual) Lymphocytes % (Manual) Monocytes % (Manual) Nucleated RBC % Seg Neutrophils # Seg Neutrophils # Man Lymphocytes # (Manual) Monocytes # (Manual) PT INR D-Dimer Heparin Anti-Xa Level POC ABG pH ABG pH POC ABG pCO2 POC ABG pO2 ABG pO2 ABG HCO3 ABG O2 Saturation ABG Base Excess ABG Hemoglobin Oxyhemoglobin Sodium 135 L Potassium Chloride 93.5 L Carbon Dioxide BUN 84 H Creatinine 7.1 H Glucose POC Glucose Lactic Acid Calcium 5.0 L* Ionized Calcium Phosphorus Magnesium Iron TIBC Ferritin Total Bilirubin Direct Bilirubin AST 78 H ALT Alkaline Phosphatase 135 H Total Creatine Kinase 4677 H CK-MB (CK-2) Troponin T C-Reactive Protein Total Protein 4.8 L Albumin 2.3 L Triglycerides 409 H LDL Cholesterol Direct HDL Cholesterol Free T4 PTH Intact Urine WBC (Auto) Urine Creatinine Salicylates Acetaminophen Crossmatch 03/27/19 03/27/19 03/27/19 12:37 14:15 14:15 WBC RBC Hgb 9.7 L Hct 29.5 L MCV RDW Plt Count 87 L Lymph % (Auto) [place] % (Auto) Lymph # [place] # Seg Neutrophils % Seg Neuts % (Manual) Lymphocytes % (Manual) Monocytes % (Manual) Nucleated RBC % Seg Neutrophils # Seg Neutrophils # Man Lymphocytes # (Manual) Monocytes # (Manual) PT 15.9 H INR 1.30 H D-Dimer Heparin Anti-Xa Level POC ABG pH ABG pH POC ABG pCO2 POC ABG pO2 ABG pO2 ABG HCO3 ABG O2 Saturation ABG Base Excess ABG Hemoglobin Oxyhemoglobin Sodium Potassium Chloride Carbon Dioxide BUN Creatinine Glucose POC Glucose 129 H Lactic Acid Calcium Ionized Calcium Phosphorus Magnesium Iron TIBC Ferritin Total Bilirubin Direct Bilirubin AST ALT Alkaline Phosphatase Total Creatine Kinase CK-MB (CK-2) Troponin T C-Reactive Protein Total Protein Albumin Triglycerides LDL Cholesterol Direct HDL Cholesterol Free T4 PTH Intact Urine WBC (Auto) Urine Creatinine Salicylates Acetaminophen Crossmatch 03/27/19 03/27/19 03/27/19 18:00 19:22 19:23 WBC RBC Hgb Hct MCV RDW Plt Count Lymph % (Auto) [place] % (Auto) Lymph # [place] # Seg Neutrophils % Seg Neuts % (Manual) Lymphocytes % (Manual) Monocytes % (Manual) Nucleated RBC % Seg Neutrophils # Seg Neutrophils # Man Lymphocytes # (Manual) Monocytes # (Manual) PT INR D-Dimer Heparin Anti-Xa Level < 0.10 L POC ABG pH ABG pH POC ABG pCO2 POC ABG pO2 ABG pO2 ABG HCO3 ABG O2 Saturation ABG Base Excess ABG Hemoglobin Oxyhemoglobin Sodium Potassium Chloride Carbon Dioxide BUN Creatinine Glucose POC Glucose 121 H Lactic Acid Calcium Ionized Calcium Phosphorus Magnesium Iron TIBC Ferritin Total Bilirubin Direct Bilirubin AST ALT Alkaline Phosphatase Total Creatine Kinase 4517 H CK-MB (CK-2) Troponin T C-Reactive Protein Total Protein Albumin Triglycerides LDL Cholesterol Direct HDL Cholesterol Free T4 PTH Intact Urine WBC (Auto) Urine Creatinine Salicylates Acetaminophen Crossmatch 03/27/19 03/27/19 03/28/19 22:10 23:52 03:49 WBC RBC Hgb Hct MCV RDW Plt Count Lymph % (Auto) [place] % (Auto) Lymph # [place] # Seg Neutrophils % Seg Neuts % (Manual) Lymphocytes % (Manual) Monocytes % (Manual) Nucleated RBC % Seg Neutrophils # Seg Neutrophils # Man Lymphocytes # (Manual) Monocytes # (Manual) PT INR D-Dimer Heparin Anti-Xa Level POC ABG pH 7.338 L ABG pH POC ABG pCO2 33.1 L POC ABG pO2 ABG pO2 ABG HCO3 ABG O2 Saturation ABG Base Excess ABG Hemoglobin Oxyhemoglobin Sodium Potassium Chloride Carbon Dioxide BUN Creatinine Glucose POC Glucose 113 H 117 H Lactic Acid Calcium Ionized Calcium Phosphorus Magnesium Iron TIBC Ferritin Total Bilirubin Direct Bilirubin AST ALT Alkaline Phosphatase Total Creatine Kinase CK-MB (CK-2) Troponin T C-Reactive Protein Total Protein Albumin Triglycerides LDL Cholesterol Direct HDL Cholesterol Free T4 PTH Intact Urine WBC (Auto) Urine Creatinine Salicylates Acetaminophen Crossmatch 03/28/19 03/28/19 03/28/19 05:13 05:13 06:18 WBC RBC Hgb Hct MCV RDW Plt Count Lymph % (Auto) [place] % (Auto) Lymph # [place] # Seg Neutrophils % Seg Neuts % (Manual) Lymphocytes % (Manual) Monocytes % (Manual) Nucleated RBC % Seg Neutrophils # Seg Neutrophils # Man Lymphocytes # (Manual) Monocytes # (Manual) PT INR D-Dimer Heparin Anti-Xa Level 0.23 L POC ABG pH ABG pH POC ABG pCO2 POC ABG pO2 ABG pO2 ABG HCO3 ABG O2 Saturation ABG Base Excess ABG Hemoglobin Oxyhemoglobin Sodium 135 L Potassium 5.5 H D Chloride 95.1 L Carbon Dioxide 16 L D BUN 129 H Creatinine 9.3 H Glucose 158 H POC Glucose 202 H Lactic Acid Calcium 4.0 L* D Ionized Calcium Phosphorus 12.40 H Magnesium Iron TIBC Ferritin Total Bilirubin Direct Bilirubin AST ALT Alkaline Phosphatase Total Creatine Kinase 4266 H CK-MB (CK-2) Troponin T C-Reactive Protein Total Protein Albumin Triglycerides LDL Cholesterol Direct HDL Cholesterol Free T4 PTH Intact Urine WBC (Auto) Urine Creatinine Salicylates Acetaminophen Crossmatch 03/28/19 03/28/19 03/28/19 08:25 10:00 12:00 WBC RBC Hgb 4.9 L* D Hct 15.4 L* D MCV RDW Plt Count Lymph % (Auto) [place] % (Auto) Lymph # [place] # Seg Neutrophils % Seg Neuts % (Manual) Lymphocytes % (Manual) Monocytes % (Manual) Nucleated RBC % Seg Neutrophils # Seg Neutrophils # Man Lymphocytes # (Manual) Monocytes # (Manual) PT 17.9 H INR 1.52 H D-Dimer 4845.98 H Heparin Anti-Xa Level POC ABG pH ABG pH POC ABG pCO2 POC ABG pO2 ABG pO2 ABG HCO3 ABG O2 Saturation ABG Base Excess ABG Hemoglobin Oxyhemoglobin Sodium Potassium Chloride Carbon Dioxide BUN Creatinine Glucose POC Glucose Lactic Acid Calcium Ionized Calcium Phosphorus Magnesium Iron TIBC Ferritin Total Bilirubin Direct Bilirubin AST ALT Alkaline Phosphatase Total Creatine Kinase CK-MB (CK-2) Troponin T C-Reactive Protein Total Protein Albumin Triglycerides LDL Cholesterol Direct HDL Cholesterol Free T4 PTH Intact Urine WBC (Auto) Urine Creatinine Salicylates Acetaminophen Crossmatch See Detail 03/28/19 03/28/19 03/28/19 12:28 14:10 17:43 WBC RBC Hgb 5.9 L* Hct 18.3 L* MCV RDW Plt Count Lymph % (Auto) [place] % (Auto) Lymph # [place] # Seg Neutrophils % Seg Neuts % (Manual) Lymphocytes % (Manual) Monocytes % (Manual) Nucleated RBC % Seg Neutrophils # Seg Neutrophils # Man Lymphocytes # (Manual) Monocytes # (Manual) PT INR D-Dimer Heparin Anti-Xa Level POC ABG pH ABG pH POC ABG pCO2 POC ABG pO2 ABG pO2 ABG HCO3 ABG O2 Saturation ABG Base Excess ABG Hemoglobin Oxyhemoglobin Sodium Potassium Chloride Carbon Dioxide BUN Creatinine Glucose POC Glucose 153 H 159 H Lactic Acid Calcium Ionized Calcium Phosphorus Magnesium Iron TIBC Ferritin Total Bilirubin Direct Bilirubin AST ALT Alkaline Phosphatase Total Creatine Kinase CK-MB (CK-2) Troponin T C-Reactive Protein Total Protein Albumin Triglycerides LDL Cholesterol Direct HDL Cholesterol Free T4 PTH Intact Urine WBC (Auto) Urine Creatinine Salicylates Acetaminophen Crossmatch 03/28/19 03/28/19 03/28/19 18:10 Unknown 23:59 WBC 24.8 H RBC 3.42 L Hgb 10.2 L D Hct 31.1 L D MCV RDW 15.4 H Plt Count 54 L Lymph % (Auto) [place] % (Auto) Lymph # [place] # Seg Neutrophils % Seg Neuts % (Manual) 91.0 H Lymphocytes % (Manual) 8.0 L Monocytes % (Manual) Nucleated RBC % Seg Neutrophils # Seg Neutrophils # Man 22.6 H Lymphocytes # (Manual) Monocytes # (Manual) PT INR D-Dimer Heparin Anti-Xa Level POC ABG pH ABG pH POC ABG pCO2 POC ABG pO2 ABG pO2 ABG HCO3 ABG O2 Saturation ABG Base Excess ABG Hemoglobin Oxyhemoglobin Sodium Potassium 5.7 H Chloride Carbon Dioxide BUN Creatinine Glucose POC Glucose 107 H Lactic Acid Calcium Ionized Calcium Phosphorus Magnesium Iron TIBC Ferritin Total Bilirubin Direct Bilirubin AST ALT Alkaline Phosphatase Total Creatine Kinase CK-MB (CK-2) Troponin T C-Reactive Protein Total Protein Albumin Triglycerides LDL Cholesterol Direct HDL Cholesterol Free T4 PTH Intact Urine WBC (Auto) Urine Creatinine Salicylates Acetaminophen Crossmatch 03/29/19 03/29/19 03/29/19 04:29 05:46 06:22 WBC RBC Hgb 8.6 L Hct 25.7 L MCV RDW Plt Count 93 L Lymph % (Auto) [place] % (Auto) Lymph # [place] # Seg Neutrophils % Seg Neuts % (Manual) Lymphocytes % (Manual) Monocytes % (Manual) Nucleated RBC % Seg Neutrophils # Seg Neutrophils # Man Lymphocytes # (Manual) Monocytes # (Manual) PT INR D-Dimer Heparin Anti-Xa Level POC ABG pH ABG pH POC ABG pCO2 32.2 L POC ABG pO2 ABG pO2 ABG HCO3 ABG O2 Saturation ABG Base Excess ABG Hemoglobin Oxyhemoglobin Sodium Potassium Chloride Carbon Dioxide BUN Creatinine Glucose POC Glucose 113 H Lactic Acid Calcium Ionized Calcium Phosphorus Magnesium Iron TIBC Ferritin Total Bilirubin Direct Bilirubin AST ALT Alkaline Phosphatase Total Creatine Kinase CK-MB (CK-2) Troponin T C-Reactive Protein Total Protein Albumin Triglycerides LDL Cholesterol Direct HDL Cholesterol Free T4 PTH Intact Urine WBC (Auto) Urine Creatinine Salicylates Acetaminophen Crossmatch 03/29/19 03/29/19 03/29/19 06:22 06:22 06:22 WBC 23.2 H RBC 2.91 L Hgb 8.6 L Hct 25.8 L MCV RDW Plt Count 91 L Lymph % (Auto) [place] % (Auto) Lymph # [place] # Seg Neutrophils % Seg Neuts % (Manual) Lymphocytes % (Manual) Monocytes % (Manual) Nucleated RBC % Seg Neutrophils # Seg Neutrophils # Man Lymphocytes # (Manual) Monocytes # (Manual) PT INR D-Dimer Heparin Anti-Xa Level POC ABG pH ABG pH POC ABG pCO2 POC ABG pO2 ABG pO2 ABG HCO3 ABG O2 Saturation ABG Base Excess ABG Hemoglobin Oxyhemoglobin Sodium 133 L Potassium Chloride 93.8 L Carbon Dioxide 18 L BUN 109 H Creatinine 7.4 H Glucose 124 H POC Glucose Lactic Acid Calcium 4.6 L* Ionized Calcium Phosphorus Magnesium Iron TIBC Ferritin Total Bilirubin Direct Bilirubin AST ALT Alkaline Phosphatase Total Creatine Kinase 3401 H CK-MB (CK-2) Troponin T C-Reactive Protein Total Protein Albumin Triglycerides 309 H LDL Cholesterol Direct HDL Cholesterol Free T4 PTH Intact Urine WBC (Auto) Urine Creatinine Salicylates Acetaminophen Crossmatch 03/29/19 03/29/19 03/29/19 11:48 11:48 18:24 WBC RBC Hgb 7.8 L Hct 23.2 L MCV RDW Plt Count Lymph % (Auto) [place] % (Auto) Lymph # [place] # Seg Neutrophils % Seg Neuts % (Manual) Lymphocytes % (Manual) Monocytes % (Manual) Nucleated RBC % Seg Neutrophils # Seg Neutrophils # Man Lymphocytes # (Manual) Monocytes # (Manual) PT 15.3 H INR 1.24 H D-Dimer Heparin Anti-Xa Level POC ABG pH ABG pH POC ABG pCO2 POC ABG pO2 ABG pO2 ABG HCO3 ABG O2 Saturation ABG Base Excess ABG Hemoglobin Oxyhemoglobin Sodium Potassium Chloride Carbon Dioxide BUN Creatinine Glucose POC Glucose 122 H Lactic Acid Calcium Ionized Calcium Phosphorus Magnesium Iron TIBC Ferritin Total Bilirubin Direct Bilirubin AST ALT Alkaline Phosphatase Total Creatine Kinase CK-MB (CK-2) Troponin T C-Reactive Protein Total Protein Albumin Triglycerides LDL Cholesterol Direct HDL Cholesterol Free T4 PTH Intact Urine WBC (Auto) Urine Creatinine Salicylates Acetaminophen Crossmatch 03/30/19 03/30/19 03/30/19 00:40 04:31 05:04 WBC RBC Hgb 7.6 L Hct 23.0 L MCV RDW Plt Count Lymph % (Auto) [place] % (Auto) Lymph # [place] # Seg Neutrophils % Seg Neuts % (Manual) Lymphocytes % (Manual) Monocytes % (Manual) Nucleated RBC % Seg Neutrophils # Seg Neutrophils # Man Lymphocytes # (Manual) Monocytes # (Manual) PT INR D-Dimer Heparin Anti-Xa Level POC ABG pH 7.346 L ABG pH POC ABG pCO2 POC ABG pO2 62 L ABG pO2 ABG HCO3 ABG O2 Saturation ABG Base Excess ABG Hemoglobin Oxyhemoglobin Sodium Potassium Chloride Carbon Dioxide BUN 79 H Creatinine 6.4 H Glucose POC Glucose Lactic Acid Calcium 6.1 L D Ionized Calcium Phosphorus Magnesium Iron TIBC Ferritin Total Bilirubin Direct Bilirubin AST ALT Alkaline Phosphatase Total Creatine Kinase CK-MB (CK-2) Troponin T C-Reactive Protein Total Protein Albumin Triglycerides LDL Cholesterol Direct HDL Cholesterol Free T4 PTH Intact Urine WBC (Auto) Urine Creatinine Salicylates Acetaminophen Crossmatch 03/30/19 03/30/19 03/30/19 08:45 12:09 22:43 WBC 14.3 H RBC 2.33 L Hgb 7.0 L 7.4 L Hct 21.0 L 22.3 L MCV RDW 15.6 H Plt Count 135 L Lymph % (Auto) [place] % (Auto) Lymph # [place] # Seg Neutrophils % Seg Neuts % (Manual) Lymphocytes % (Manual) Monocytes % (Manual) Nucleated RBC % Seg Neutrophils # Seg Neutrophils # Man Lymphocytes # (Manual) Monocytes # (Manual) PT INR D-Dimer Heparin Anti-Xa Level POC ABG pH ABG pH POC ABG pCO2 POC ABG pO2 ABG pO2 ABG HCO3 ABG O2 Saturation ABG Base Excess ABG Hemoglobin Oxyhemoglobin Sodium Potassium Chloride Carbon Dioxide BUN Creatinine Glucose POC Glucose Lactic Acid Calcium Ionized Calcium 3.7 L Phosphorus Magnesium Iron TIBC Ferritin Total Bilirubin Direct Bilirubin AST ALT Alkaline Phosphatase Total Creatine Kinase CK-MB (CK-2) Troponin T C-Reactive Protein Total Protein Albumin Triglycerides LDL Cholesterol Direct HDL Cholesterol Free T4 PTH Intact Urine WBC (Auto) Urine Creatinine Salicylates Acetaminophen Crossmatch 03/30/19 03/30/19 03/31/19 23:38 Unknown 04:44 WBC 11.5 H RBC 2.40 L Hgb 7.3 L Hct 21.9 L MCV RDW 15.4 H Plt Count Lymph % (Auto) 10.6 L [place] % (Auto) Lymph # [place] # Seg Neutrophils % 81.7 H Seg Neuts % (Manual) Lymphocytes % (Manual) Monocytes % (Manual) Nucleated RBC % Seg Neutrophils # 9.4 H Seg Neutrophils # Man Lymphocytes # (Manual) Monocytes # (Manual) PT INR D-Dimer Heparin Anti-Xa Level POC ABG pH ABG pH POC ABG pCO2 POC ABG pO2 ABG pO2 ABG HCO3 ABG O2 Saturation ABG Base Excess ABG Hemoglobin Oxyhemoglobin Sodium Potassium Chloride Carbon Dioxide BUN Creatinine Glucose POC Glucose 155 H Lactic Acid Calcium Ionized Calcium Phosphorus Magnesium Iron TIBC Ferritin Total Bilirubin Direct Bilirubin 0.4 H AST 63 H ALT Alkaline Phosphatase Total Creatine Kinase CK-MB (CK-2) Troponin T C-Reactive Protein Total Protein 4.9 L Albumin 2.2 L Triglycerides LDL Cholesterol Direct HDL Cholesterol Free T4 PTH Intact Urine WBC (Auto) Urine Creatinine Salicylates Acetaminophen Crossmatch 03/31/19 03/31/19 03/31/19 04:44 05:44 08:20 WBC RBC Hgb Hct MCV RDW Plt Count Lymph % (Auto) [place] % (Auto) Lymph # [place] # Seg Neutrophils % Seg Neuts % (Manual) Lymphocytes % (Manual) Monocytes % (Manual) Nucleated RBC % Seg Neutrophils # Seg Neutrophils # Man Lymphocytes # (Manual) Monocytes # (Manual) PT INR D-Dimer Heparin Anti-Xa Level POC ABG pH ABG pH POC ABG pCO2 53.5 H POC ABG pO2 62 L ABG pO2 ABG HCO3 ABG O2 Saturation ABG Base Excess ABG Hemoglobin Oxyhemoglobin Sodium 135 L Potassium Chloride 96.7 L Carbon Dioxide 19 L BUN 94 H Creatinine 7.8 H Glucose POC Glucose Lactic Acid Calcium 5.3 L* Ionized Calcium Phosphorus 8.20 H Magnesium Iron TIBC Ferritin Total Bilirubin Direct Bilirubin 0.4 H AST 60 H ALT Alkaline Phosphatase Total Creatine Kinase CK-MB (CK-2) Troponin T C-Reactive Protein Total Protein 4.8 L Albumin 2.1 L Triglycerides LDL Cholesterol Direct HDL Cholesterol Free T4 PTH Intact Urine WBC (Auto) Urine Creatinine Salicylates Acetaminophen Crossmatch 03/31/19 04/01/19 04/01/19 22:14 04:27 04:27 WBC RBC 2.60 L Hgb 8.0 L Hct 24.1 L MCV RDW 15.7 H Plt Count Lymph % (Auto) 7.9 L [place] % (Auto) Lymph # 0.7 L [place] # Seg Neutrophils % 83.6 H Seg Neuts % (Manual) Lymphocytes % (Manual) Monocytes % (Manual) Nucleated RBC % Seg Neutrophils # Seg Neutrophils # Man Lymphocytes # (Manual) Monocytes # (Manual) PT INR D-Dimer Heparin Anti-Xa Level POC ABG pH 7.286 L ABG pH POC ABG pCO2 54.7 H POC ABG pO2 179 H ABG pO2 ABG HCO3 ABG O2 Saturation ABG Base Excess ABG Hemoglobin Oxyhemoglobin Sodium Potassium Chloride Carbon Dioxide BUN 68 H Creatinine 6.6 H Glucose POC Glucose Lactic Acid Calcium 6.5 L D Ionized Calcium Phosphorus 7.30 H Magnesium Iron TIBC Ferritin Total Bilirubin Direct Bilirubin AST ALT Alkaline Phosphatase Total Creatine Kinase 1652 H CK-MB (CK-2) Troponin T C-Reactive Protein Total Protein Albumin Triglycerides LDL Cholesterol Direct HDL Cholesterol Free T4 PTH Intact Urine WBC (Auto) Urine Creatinine Salicylates Acetaminophen Crossmatch 04/01/19 04/01/19 04/01/19 05:14 05:37 18:37 WBC RBC Hgb Hct MCV RDW Plt Count Lymph % (Auto) [place] % (Auto) Lymph # [place] # Seg Neutrophils % Seg Neuts % (Manual) Lymphocytes % (Manual) Monocytes % (Manual) Nucleated RBC % Seg Neutrophils # Seg Neutrophils # Man Lymphocytes # (Manual) Monocytes # (Manual) PT INR D-Dimer Heparin Anti-Xa Level POC ABG pH 7.283 L ABG pH POC ABG pCO2 53.4 H POC ABG pO2 241 H ABG pO2 ABG HCO3 ABG O2 Saturation ABG Base Excess ABG Hemoglobin Oxyhemoglobin Sodium Potassium Chloride Carbon Dioxide BUN Creatinine Glucose POC Glucose 111 H 119 H Lactic Acid Calcium Ionized Calcium Phosphorus Magnesium Iron TIBC Ferritin Total Bilirubin Direct Bilirubin AST ALT Alkaline Phosphatase Total Creatine Kinase CK-MB (CK-2) Troponin T C-Reactive Protein Total Protein Albumin Triglycerides LDL Cholesterol Direct HDL Cholesterol Free T4 PTH Intact Urine WBC (Auto) Urine Creatinine Salicylates Acetaminophen Crossmatch 04/01/19 04/02/19 04/02/19 21:28 04:40 05:03 WBC RBC 2.36 L Hgb 7.2 L Hct 21.9 L MCV RDW 16.0 H Plt Count Lymph % (Auto) 10.8 L [place] % (Auto) Lymph # 0.8 L [place] # Seg Neutrophils % 80.3 H Seg Neuts % (Manual) Lymphocytes % (Manual) Monocytes % (Manual) Nucleated RBC % Seg Neutrophils # Seg Neutrophils # Man Lymphocytes # (Manual) Monocytes # (Manual) PT INR D-Dimer Heparin Anti-Xa Level POC ABG pH 7.299 L 7.300 L ABG pH POC ABG pCO2 48.2 H 45.2 H POC ABG pO2 133 H 107 H ABG pO2 ABG HCO3 ABG O2 Saturation ABG Base Excess ABG Hemoglobin Oxyhemoglobin Sodium Potassium Chloride Carbon Dioxide BUN Creatinine Glucose POC Glucose Lactic Acid Calcium Ionized Calcium Phosphorus Magnesium Iron TIBC Ferritin Total Bilirubin Direct Bilirubin AST ALT Alkaline Phosphatase Total Creatine Kinase CK-MB (CK-2) Troponin T C-Reactive Protein Total Protein Albumin Triglycerides LDL Cholesterol Direct HDL Cholesterol Free T4 PTH Intact Urine WBC (Auto) Urine Creatinine Salicylates Acetaminophen Crossmatch 04/02/19 04/02/19 04/02/19 05:03 05:03 12:15 WBC RBC Hgb 7.4 L Hct 22.6 L MCV RDW Plt Count Lymph % (Auto) [place] % (Auto) Lymph # [place] # Seg Neutrophils % Seg Neuts % (Manual) Lymphocytes % (Manual) Monocytes % (Manual) Nucleated RBC % Seg Neutrophils # Seg Neutrophils # Man Lymphocytes # (Manual) Monocytes # (Manual) PT INR D-Dimer Heparin Anti-Xa Level POC ABG pH ABG pH POC ABG pCO2 POC ABG pO2 ABG pO2 ABG HCO3 ABG O2 Saturation ABG Base Excess ABG Hemoglobin Oxyhemoglobin Sodium 136 L Potassium Chloride 97.8 L Carbon Dioxide 18 L BUN 82 H Creatinine 8.2 H Glucose POC Glucose Lactic Acid Calcium 6.7 L Ionized Calcium Phosphorus 7.50 H Magnesium Iron 26 L TIBC 138 L Ferritin 607.0 H Total Bilirubin Direct Bilirubin AST ALT Alkaline Phosphatase Total Creatine Kinase CK-MB (CK-2) Troponin T C-Reactive Protein Total Protein Albumin Triglycerides LDL Cholesterol Direct HDL Cholesterol Free T4 PTH Intact Urine WBC (Auto) Urine Creatinine Salicylates Acetaminophen Crossmatch 04/02/19 04/02/19 04/03/19 16:34 17:14 04:18 WBC RBC Hgb Hct MCV RDW Plt Count Lymph % (Auto) [place] % (Auto) Lymph # [place] # Seg Neutrophils % Seg Neuts % (Manual) Lymphocytes % (Manual) Monocytes % (Manual) Nucleated RBC % Seg Neutrophils # Seg Neutrophils # Man Lymphocytes # (Manual) Monocytes # (Manual) PT INR D-Dimer Heparin Anti-Xa Level POC ABG pH ABG pH POC ABG pCO2 POC ABG pO2 146 H ABG pO2 ABG HCO3 ABG O2 Saturation ABG Base Excess ABG Hemoglobin Oxyhemoglobin Sodium Potassium Chloride Carbon Dioxide BUN Creatinine Glucose POC Glucose 108 H Lactic Acid Calcium Ionized Calcium Phosphorus Magnesium Iron TIBC Ferritin Total Bilirubin Direct Bilirubin AST ALT Alkaline Phosphatase Total Creatine Kinase CK-MB (CK-2) Troponin T C-Reactive Protein Total Protein Albumin Triglycerides LDL Cholesterol Direct HDL Cholesterol Free T4 PTH Intact Urine WBC (Auto) Urine Creatinine Salicylates Acetaminophen Crossmatch See Detail 04/03/19 04/03/19 04/03/19 04:25 08:30 18:24 WBC RBC 2.40 L Hgb 7.3 L Hct 21.9 L MCV RDW Plt Count Lymph % (Auto) [place] % (Auto) 7.7 H Lymph # 0.9 L [place] # Seg Neutrophils % 74.6 H Seg Neuts % (Manual) Lymphocytes % (Manual) Monocytes % (Manual) Nucleated RBC % Seg Neutrophils # Seg Neutrophils # Man Lymphocytes # (Manual) Monocytes # (Manual) PT INR D-Dimer Heparin Anti-Xa Level POC ABG pH ABG pH POC ABG pCO2 POC ABG pO2 ABG pO2 ABG HCO3 ABG O2 Saturation ABG Base Excess ABG Hemoglobin Oxyhemoglobin Sodium 136 L Potassium Chloride 97.0 L Carbon Dioxide BUN 58 H Creatinine 7.3 H Glucose POC Glucose 106 H Lactic Acid Calcium 7.5 L Ionized Calcium Phosphorus 5.80 H D Magnesium Iron TIBC Ferritin Total Bilirubin Direct Bilirubin AST ALT Alkaline Phosphatase Total Creatine Kinase CK-MB (CK-2) Troponin T C-Reactive Protein Total Protein Albumin Triglycerides LDL Cholesterol Direct HDL Cholesterol Free T4 PTH Intact Urine WBC (Auto) Urine Creatinine Salicylates Acetaminophen Crossmatch 04/03/19 04/04/19 04/04/19 23:43 04:47 04:47 WBC RBC 2.72 L Hgb 8.3 L Hct 24.7 L MCV RDW 15.6 H Plt Count Lymph % (Auto) [place] % (Auto) 10.1 H Lymph # 0.8 L [place] # Seg Neutrophils % 71.4 H Seg Neuts % (Manual) Lymphocytes % (Manual) Monocytes % (Manual) Nucleated RBC % Seg Neutrophils # Seg Neutrophils # Man Lymphocytes # (Manual) Monocytes # (Manual) PT INR D-Dimer Heparin Anti-Xa Level POC ABG pH ABG pH POC ABG pCO2 POC ABG pO2 ABG pO2 123.8 H ABG HCO3 ABG O2 Saturation ABG Base Excess -3.0 L ABG Hemoglobin 7.9 L Oxyhemoglobin Sodium 134 L Potassium Chloride 97.9 L Carbon Dioxide BUN 64 H Creatinine 8.1 H Glucose POC Glucose Lactic Acid Calcium 7.2 L Ionized Calcium Phosphorus Magnesium Iron TIBC Ferritin Total Bilirubin Direct Bilirubin AST ALT Alkaline Phosphatase Total Creatine Kinase CK-MB (CK-2) Troponin T C-Reactive Protein Total Protein Albumin Triglycerides LDL Cholesterol Direct HDL Cholesterol Free T4 PTH Intact Urine WBC (Auto) Urine Creatinine Salicylates Acetaminophen Crossmatch 04/04/19 04/04/19 04/04/19 06:07 13:40 18:18 WBC RBC Hgb Hct MCV RDW Plt Count Lymph % (Auto) [place] % (Auto) Lymph # [place] # Seg Neutrophils % Seg Neuts % (Manual) Lymphocytes % (Manual) Monocytes % (Manual) Nucleated RBC % Seg Neutrophils # Seg Neutrophils # Man Lymphocytes # (Manual) Monocytes # (Manual) PT INR D-Dimer Heparin Anti-Xa Level POC ABG pH ABG pH POC ABG pCO2 POC ABG pO2 ABG pO2 95.9 H ABG HCO3 ABG O2 Saturation ABG Base Excess -3.0 L ABG Hemoglobin 8.5 L Oxyhemoglobin Sodium Potassium Chloride Carbon Dioxide BUN Creatinine Glucose POC Glucose 107 H 107 H Lactic Acid Calcium Ionized Calcium Phosphorus Magnesium Iron TIBC Ferritin Total Bilirubin Direct Bilirubin AST ALT Alkaline Phosphatase Total Creatine Kinase CK-MB (CK-2) Troponin T C-Reactive Protein Total Protein Albumin Triglycerides LDL Cholesterol Direct HDL Cholesterol Free T4 PTH Intact Urine WBC (Auto) Urine Creatinine Salicylates Acetaminophen Crossmatch 04/04/19 04/05/19 04/05/19 21:22 04:09 04:09 WBC RBC 2.76 L Hgb 8.4 L Hct 25.4 L MCV RDW 15.8 H Plt Count 133 L Lymph % (Auto) [place] % (Auto) 9.6 H Lymph # 0.7 L [place] # Seg Neutrophils % 72.6 H Seg Neuts % (Manual) Lymphocytes % (Manual) Monocytes % (Manual) Nucleated RBC % Seg Neutrophils # Seg Neutrophils # Man Lymphocytes # (Manual) Monocytes # (Manual) PT INR D-Dimer Heparin Anti-Xa Level POC ABG pH ABG pH POC ABG pCO2 47.2 H POC ABG pO2 137 H ABG pO2 ABG HCO3 ABG O2 Saturation ABG Base Excess ABG Hemoglobin Oxyhemoglobin Sodium 136 L Potassium Chloride Carbon Dioxide BUN 46 H Creatinine 6.7 H Glucose POC Glucose Lactic Acid Calcium 7.7 L Ionized Calcium Phosphorus Magnesium Iron TIBC Ferritin Total Bilirubin Direct Bilirubin AST ALT Alkaline Phosphatase Total Creatine Kinase CK-MB (CK-2) Troponin T C-Reactive Protein Total Protein Albumin Triglycerides LDL Cholesterol Direct HDL Cholesterol Free T4 PTH Intact Urine WBC (Auto) Urine Creatinine Salicylates Acetaminophen Crossmatch 04/05/19 04/05/19 04/05/19 05:28 06:14 16:50 WBC RBC Hgb Hct MCV RDW Plt Count Lymph % (Auto) [place] % (Auto) Lymph # [place] # Seg Neutrophils % Seg Neuts % (Manual) Lymphocytes % (Manual) Monocytes % (Manual) Nucleated RBC % Seg Neutrophils # Seg Neutrophils # Man Lymphocytes # (Manual) Monocytes # (Manual) PT INR D-Dimer Heparin Anti-Xa Level POC ABG pH ABG pH POC ABG pCO2 POC ABG pO2 67 L ABG pO2 ABG HCO3 ABG O2 Saturation ABG Base Excess ABG Hemoglobin Oxyhemoglobin Sodium Potassium Chloride Carbon Dioxide BUN Creatinine Glucose POC Glucose 108 H Lactic Acid Calcium Ionized Calcium Phosphorus Magnesium Iron TIBC Ferritin Total Bilirubin Direct Bilirubin AST ALT Alkaline Phosphatase Total Creatine Kinase CK-MB (CK-2) Troponin T C-Reactive Protein Total Protein Albumin Triglycerides LDL Cholesterol Direct HDL Cholesterol Free T4 PTH Intact Urine WBC (Auto) 40.0 H Urine Creatinine Salicylates Acetaminophen Crossmatch 04/05/19 04/06/19 04/06/19 17:22 00:13 04:44 WBC RBC 2.48 L Hgb 7.5 L Hct 22.9 L MCV RDW 16.0 H Plt Count 107 L Lymph % (Auto) [place] % (Auto) 10.7 H Lymph # 1.0 L [place] # Seg Neutrophils % Seg Neuts % (Manual) Lymphocytes % (Manual) Monocytes % (Manual) Nucleated RBC % Seg Neutrophils # Seg Neutrophils # Man Lymphocytes # (Manual) Monocytes # (Manual) PT INR D-Dimer Heparin Anti-Xa Level POC ABG pH ABG pH POC ABG pCO2 POC ABG pO2 ABG pO2 ABG HCO3 ABG O2 Saturation ABG Base Excess ABG Hemoglobin Oxyhemoglobin Sodium Potassium Chloride Carbon Dioxide BUN Creatinine Glucose POC Glucose 118 H 138 H Lactic Acid Calcium Ionized Calcium Phosphorus Magnesium Iron TIBC Ferritin Total Bilirubin Direct Bilirubin AST ALT Alkaline Phosphatase Total Creatine Kinase CK-MB (CK-2) Troponin T C-Reactive Protein Total Protein Albumin Triglycerides LDL Cholesterol Direct HDL Cholesterol Free T4 PTH Intact Urine WBC (Auto) Urine Creatinine Salicylates Acetaminophen Crossmatch 04/06/19 04/06/19 04/06/19 04:44 05:20 05:23 WBC RBC Hgb Hct MCV RDW Plt Count Lymph % (Auto) [place] % (Auto) Lymph # [place] # Seg Neutrophils % Seg Neuts % (Manual) Lymphocytes % (Manual) Monocytes % (Manual) Nucleated RBC % Seg Neutrophils # Seg Neutrophils # Man Lymphocytes # (Manual) Monocytes # (Manual) PT INR D-Dimer Heparin Anti-Xa Level POC ABG pH ABG pH POC ABG pCO2 POC ABG pO2 ABG pO2 104.0 H ABG HCO3 ABG O2 Saturation ABG Base Excess -2.1 L ABG Hemoglobin 7.3 L Oxyhemoglobin Sodium Potassium Chloride Carbon Dioxide BUN 64 H Creatinine 8.2 H Glucose 103 H POC Glucose 118 H Lactic Acid Calcium 7.3 L Ionized Calcium Phosphorus Magnesium Iron TIBC Ferritin Total Bilirubin Direct Bilirubin AST ALT Alkaline Phosphatase Total Creatine Kinase CK-MB (CK-2) Troponin T C-Reactive Protein Total Protein Albumin Triglycerides LDL Cholesterol Direct HDL Cholesterol Free T4 PTH Intact Urine WBC (Auto) Urine Creatinine Salicylates Acetaminophen Crossmatch 04/06/19 04/07/19 04/07/19 12:02 05:40 05:40 WBC RBC 2.59 L Hgb 7.9 L Hct 23.8 L MCV RDW 15.8 H Plt Count 89 L Lymph % (Auto) [place] % (Auto) 10.3 H Lymph # 1.1 L [place] # Seg Neutrophils % Seg Neuts % (Manual) Lymphocytes % (Manual) Monocytes % (Manual) Nucleated RBC % Seg Neutrophils # Seg Neutrophils # Man Lymphocytes # (Manual) Monocytes # (Manual) PT INR D-Dimer Heparin Anti-Xa Level POC ABG pH ABG pH POC ABG pCO2 POC ABG pO2 ABG pO2 ABG HCO3 ABG O2 Saturation ABG Base Excess ABG Hemoglobin Oxyhemoglobin Sodium 136 L Potassium 3.5 L Chloride Carbon Dioxide BUN 46 H Creatinine 6.2 H Glucose POC Glucose 108 H Lactic Acid Calcium 7.9 L Ionized Calcium Phosphorus Magnesium Iron TIBC Ferritin Total Bilirubin Direct Bilirubin AST ALT Alkaline Phosphatase Total Creatine Kinase CK-MB (CK-2) Troponin T C-Reactive Protein Total Protein Albumin Triglycerides LDL Cholesterol Direct HDL Cholesterol Free T4 PTH Intact Urine WBC (Auto) Urine Creatinine Salicylates Acetaminophen Crossmatch 04/07/19 04/09/19 04/09/19 12:57 04:28 04:28 WBC RBC 2.85 L Hgb 8.7 L Hct 26.2 L MCV RDW 15.6 H Plt Count Lymph % (Auto) [place] % (Auto) 10.4 H Lymph # 1.0 L [place] # Seg Neutrophils % 73.3 H Seg Neuts % (Manual) Lymphocytes % (Manual) Monocytes % (Manual) Nucleated RBC % Seg Neutrophils # Seg Neutrophils # Man Lymphocytes # (Manual) Monocytes # (Manual) PT INR D-Dimer Heparin Anti-Xa Level POC ABG pH ABG pH POC ABG pCO2 POC ABG pO2 107 H ABG pO2 ABG HCO3 ABG O2 Saturation ABG Base Excess ABG Hemoglobin Oxyhemoglobin Sodium Potassium 3.5 L Chloride 97.8 L Carbon Dioxide BUN 62 H Creatinine 8.1 H Glucose POC Glucose Lactic Acid Calcium 8.2 L Ionized Calcium Phosphorus 5.10 H Magnesium Iron TIBC Ferritin Total Bilirubin Direct Bilirubin AST ALT Alkaline Phosphatase Total Creatine Kinase CK-MB (CK-2) Troponin T C-Reactive Protein Total Protein Albumin Triglycerides LDL Cholesterol Direct HDL Cholesterol Free T4 PTH Intact Urine WBC (Auto) Urine Creatinine Salicylates Acetaminophen Crossmatch 04/10/19 04/11/19 04/11/19 18:15 00:25 04:16 WBC 11.5 H RBC 2.91 L Hgb 8.9 L Hct 27.6 L MCV 95 H RDW 17.5 H Plt Count Lymph % (Auto) [place] % (Auto) Lymph # [place] # Seg Neutrophils % Seg Neuts % (Manual) 71.0 H Lymphocytes % (Manual) Monocytes % (Manual) 8.0 H Nucleated RBC % Seg Neutrophils # Seg Neutrophils # Man 8.2 H Lymphocytes # (Manual) Monocytes # (Manual) 0.9 H PT INR D-Dimer Heparin Anti-Xa Level POC ABG pH ABG pH POC ABG pCO2 POC ABG pO2 ABG pO2 ABG HCO3 ABG O2 Saturation ABG Base Excess ABG Hemoglobin Oxyhemoglobin Sodium Potassium Chloride Carbon Dioxide BUN Creatinine Glucose POC Glucose 109 H 114 H Lactic Acid Calcium Ionized Calcium Phosphorus Magnesium Iron TIBC Ferritin Total Bilirubin Direct Bilirubin AST ALT Alkaline Phosphatase Total Creatine Kinase CK-MB (CK-2) Troponin T C-Reactive Protein Total Protein Albumin Triglycerides LDL Cholesterol Direct HDL Cholesterol Free T4 PTH Intact Urine WBC (Auto) Urine Creatinine Salicylates Acetaminophen Crossmatch 04/11/19 04/11/19 04/11/19 06:47 09:21 12:15 WBC RBC Hgb Hct MCV RDW Plt Count Lymph % (Auto) [place] % (Auto) Lymph # [place] # Seg Neutrophils % Seg Neuts % (Manual) Lymphocytes % (Manual) Monocytes % (Manual) Nucleated RBC % Seg Neutrophils # Seg Neutrophils # Man Lymphocytes # (Manual) Monocytes # (Manual) PT INR D-Dimer Heparin Anti-Xa Level POC ABG pH ABG pH POC ABG pCO2 POC ABG pO2 ABG pO2 ABG HCO3 ABG O2 Saturation ABG Base Excess ABG Hemoglobin Oxyhemoglobin Sodium Potassium 3.5 L Chloride Carbon Dioxide BUN 45 H Creatinine 6.0 H Glucose 113 H POC Glucose 106 H 109 H Lactic Acid Calcium Ionized Calcium Phosphorus Magnesium Iron TIBC Ferritin Total Bilirubin Direct Bilirubin AST ALT Alkaline Phosphatase Total Creatine Kinase CK-MB (CK-2) Troponin T C-Reactive Protein Total Protein Albumin Triglycerides LDL Cholesterol Direct HDL Cholesterol Free T4 PTH Intact Urine WBC (Auto) Urine Creatinine Salicylates Acetaminophen Crossmatch 04/11/19 04/12/19 04/12/19 18:42 12:13 23:52 WBC RBC Hgb Hct MCV RDW Plt Count Lymph % (Auto) [place] % (Auto) Lymph # [place] # Seg Neutrophils % Seg Neuts % (Manual) Lymphocytes % (Manual) Monocytes % (Manual) Nucleated RBC % Seg Neutrophils # Seg Neutrophils # Man Lymphocytes # (Manual) Monocytes # (Manual) PT INR D-Dimer Heparin Anti-Xa Level POC ABG pH ABG pH POC ABG pCO2 POC ABG pO2 ABG pO2 ABG HCO3 ABG O2 Saturation ABG Base Excess ABG Hemoglobin Oxyhemoglobin Sodium Potassium Chloride Carbon Dioxide BUN Creatinine Glucose POC Glucose 107 H 115 H 124 H Lactic Acid Calcium Ionized Calcium Phosphorus Magnesium Iron TIBC Ferritin Total Bilirubin Direct Bilirubin AST ALT Alkaline Phosphatase Total Creatine Kinase CK-MB (CK-2) Troponin T C-Reactive Protein Total Protein Albumin Triglycerides LDL Cholesterol Direct HDL Cholesterol Free T4 PTH Intact Urine WBC (Auto) Urine Creatinine Salicylates Acetaminophen Crossmatch 04/13/19 04/13/19 04/13/19 05:00 05:00 05:47 WBC 11.7 H RBC 2.97 L Hgb 8.8 L Hct 27.3 L MCV RDW 16.1 H Plt Count Lymph % (Auto) 9.5 L [place] % (Auto) 9.9 H Lymph # 1.1 L [place] # 1.2 H Seg Neutrophils % 78.6 H Seg Neuts % (Manual) Lymphocytes % (Manual) Monocytes % (Manual) Nucleated RBC % Seg Neutrophils # 9.2 H Seg Neutrophils # Man Lymphocytes # (Manual) Monocytes # (Manual) PT INR D-Dimer Heparin Anti-Xa Level POC ABG pH ABG pH POC ABG pCO2 POC ABG pO2 ABG pO2 ABG HCO3 ABG O2 Saturation ABG Base Excess ABG Hemoglobin Oxyhemoglobin Sodium Potassium 3.5 L Chloride Carbon Dioxide BUN 42 H Creatinine 4.6 H Glucose 106 H POC Glucose 107 H Lactic Acid Calcium 10.6 H D Ionized Calcium Phosphorus 5.90 H Magnesium Iron TIBC Ferritin Total Bilirubin Direct Bilirubin AST ALT Alkaline Phosphatase Total Creatine Kinase CK-MB (CK-2) Troponin T C-Reactive Protein Total Protein 5.8 L Albumin 2.5 L Triglycerides LDL Cholesterol Direct HDL Cholesterol Free T4 PTH Intact Urine WBC (Auto) Urine Creatinine Salicylates Acetaminophen Crossmatch 04/13/19 04/14/19 04/14/19 17:32 00:00 03:55 WBC RBC Hgb Hct MCV RDW Plt Count Lymph % (Auto) [place] % (Auto) Lymph # [place] # Seg Neutrophils % Seg Neuts % (Manual) Lymphocytes % (Manual) Monocytes % (Manual) Nucleated RBC % Seg Neutrophils # Seg Neutrophils # Man Lymphocytes # (Manual) Monocytes # (Manual) PT INR D-Dimer Heparin Anti-Xa Level POC ABG pH ABG pH POC ABG pCO2 POC ABG pO2 ABG pO2 ABG HCO3 ABG O2 Saturation ABG Base Excess ABG Hemoglobin Oxyhemoglobin Sodium Potassium 3.0 L Chloride Carbon Dioxide BUN 30 H Creatinine 3.1 H Glucose POC Glucose 112 H 120 H Lactic Acid Calcium 10.8 H Ionized Calcium Phosphorus Magnesium Iron TIBC Ferritin Total Bilirubin Direct Bilirubin AST ALT Alkaline Phosphatase Total Creatine Kinase CK-MB (CK-2) Troponin T C-Reactive Protein Total Protein Albumin Triglycerides LDL Cholesterol Direct HDL Cholesterol Free T4 PTH Intact Urine WBC (Auto) Urine Creatinine Salicylates Acetaminophen Crossmatch 04/14/19 04/14/19 04/15/19 11:56 23:28 05:11 WBC 13.0 H RBC 2.93 L Hgb 8.6 L Hct 26.5 L MCV RDW 16.5 H Plt Count Lymph % (Auto) 12.2 L [place] % (Auto) 9.1 H Lymph # [place] # 1.2 H Seg Neutrophils % 77.6 H Seg Neuts % (Manual) Lymphocytes % (Manual) Monocytes % (Manual) Nucleated RBC % Seg Neutrophils # 10.1 H Seg Neutrophils # Man Lymphocytes # (Manual) Monocytes # (Manual) PT INR D-Dimer Heparin Anti-Xa Level POC ABG pH ABG pH POC ABG pCO2 POC ABG pO2 ABG pO2 ABG HCO3 ABG O2 Saturation ABG Base Excess ABG Hemoglobin Oxyhemoglobin Sodium Potassium Chloride Carbon Dioxide BUN Creatinine Glucose POC Glucose 109 H 112 H Lactic Acid Calcium Ionized Calcium Phosphorus Magnesium Iron TIBC Ferritin Total Bilirubin Direct Bilirubin AST ALT Alkaline Phosphatase Total Creatine Kinase CK-MB (CK-2) Troponin T C-Reactive Protein Total Protein Albumin Triglycerides LDL Cholesterol Direct HDL Cholesterol Free T4 PTH Intact Urine WBC (Auto) Urine Creatinine Salicylates Acetaminophen Crossmatch 04/15/19 04/15/19 04/15/19 05:11 05:31 18:03 WBC RBC Hgb Hct MCV RDW Plt Count Lymph % (Auto) [place] % (Auto) Lymph # [place] # Seg Neutrophils % Seg Neuts % (Manual) Lymphocytes % (Manual) Monocytes % (Manual) Nucleated RBC % Seg Neutrophils # Seg Neutrophils # Man Lymphocytes # (Manual) Monocytes # (Manual) PT INR D-Dimer Heparin Anti-Xa Level POC ABG pH ABG pH POC ABG pCO2 POC ABG pO2 ABG pO2 ABG HCO3 ABG O2 Saturation ABG Base Excess ABG Hemoglobin Oxyhemoglobin Sodium Potassium 3.2 L Chloride Carbon Dioxide BUN 44 H Creatinine 3.6 H Glucose 106 H POC Glucose 110 H 121 H Lactic Acid Calcium 12.0 H Ionized Calcium Phosphorus 5.00 H Magnesium Iron TIBC Ferritin Total Bilirubin Direct Bilirubin AST ALT Alkaline Phosphatase Total Creatine Kinase CK-MB (CK-2) Troponin T C-Reactive Protein Total Protein Albumin Triglycerides LDL Cholesterol Direct HDL Cholesterol Free T4 PTH Intact Urine WBC (Auto) Urine Creatinine Salicylates Acetaminophen Crossmatch 04/16/19 04/16/19 04/17/19 05:07 05:07 04:15 WBC 12.6 H RBC 3.12 L Hgb 9.0 L Hct 28.2 L MCV RDW 16.6 H Plt Count Lymph % (Auto) 10.3 L [place] % (Auto) 9.8 H Lymph # [place] # 1.2 H Seg Neutrophils % 78.2 H Seg Neuts % (Manual) Lymphocytes % (Manual) Monocytes % (Manual) Nucleated RBC % Seg Neutrophils # 9.9 H Seg Neutrophils # Man Lymphocytes # (Manual) Monocytes # (Manual) PT INR D-Dimer Heparin Anti-Xa Level POC ABG pH ABG pH POC ABG pCO2 POC ABG pO2 ABG pO2 ABG HCO3 ABG O2 Saturation ABG Base Excess ABG Hemoglobin Oxyhemoglobin Sodium 147 H 150 H Potassium 3.5 L 3.1 L Chloride Carbon Dioxide 32 H BUN 54 H 65 H Creatinine 3.8 H 4.0 H Glucose 102 H 107 H POC Glucose Lactic Acid Calcium 11.7 H 12.0 H Ionized Calcium Phosphorus 5.40 H Magnesium Iron TIBC Ferritin Total Bilirubin Direct Bilirubin AST ALT Alkaline Phosphatase Total Creatine Kinase CK-MB (CK-2) Troponin T C-Reactive Protein 7.10 H Total Protein Albumin Triglycerides LDL Cholesterol Direct HDL Cholesterol Free T4 PTH Intact Urine WBC (Auto) Urine Creatinine Salicylates Acetaminophen Crossmatch 04/17/19 04/17/19 04:15 06:05 WBC 15.8 H RBC 3.32 L Hgb 9.5 L Hct 29.9 L MCV RDW 16.9 H Plt Count Lymph % (Auto) 12.6 L [place] % (Auto) 11.1 H Lymph # [place] # 1.7 H Seg Neutrophils % 74.7 H Seg Neuts % (Manual) Lymphocytes % (Manual) Monocytes % (Manual) Nucleated RBC % Seg Neutrophils # 11.8 H Seg Neutrophils # Man Lymphocytes # (Manual) Monocytes # (Manual) PT INR D-Dimer Heparin Anti-Xa Level POC ABG pH ABG pH POC ABG pCO2 POC ABG pO2 ABG pO2 ABG HCO3 ABG O2 Saturation ABG Base Excess ABG Hemoglobin Oxyhemoglobin Sodium Potassium Chloride Carbon Dioxide BUN Creatinine Glucose POC Glucose 111 H Lactic Acid Calcium Ionized Calcium Phosphorus Magnesium Iron TIBC Ferritin Total Bilirubin Direct Bilirubin AST ALT Alkaline Phosphatase Total Creatine Kinase CK-MB (CK-2) Troponin T C-Reactive Protein Total Protein Albumin Triglycerides LDL Cholesterol Direct HDL Cholesterol Free T4 PTH Intact Urine WBC (Auto) Urine Creatinine Salicylates Acetaminophen Crossmatch
--- NOTE | 2019-04-17 14:49 | Progress Note ---
Assessment and Plan Optimize HR - increase lopressor dosage, cont PO amio. Consider PEG placement per primary team. No systemic AC regarding AFib in setting of anemia, thrombocytopenia, GI bleed. Can consider ischemic evaluation (stress test) once medically stabilized. The patient has been seen in conjunction with Dr. KONRAD Nunez who agrees with the assessment and plan of care. - Patient Problems (1) Cardiopulmonary arrest Current Visit: Yes Status: Acute (2) Acute respiratory failure Current Visit: Yes Status: Acute Qualifiers: Respiratory failure complication: hypoxia Qualified Code(s): J96.01 - Acute respiratory failure with hypoxia (3) Paroxysmal atrial fibrillation with RVR Current Visit: Yes Status: Acute (4) SVT (supraventricular tachycardia) Current Visit: Yes Status: Acute (5) Torsades de pointes Current Visit: Yes Status: Acute (6) Ventricular tachycardia Current Visit: Yes Status: Acute (7) Encephalopathy Current Visit: Yes Status: Acute (8) Septic shock Current Visit: Yes Status: Acute (9) Aspiration pneumonia Current Visit: Yes Status: Acute Qualifiers: Aspiration pneumonia type: unspecified (10) Meningitis Current Visit: Yes Status: Suspected (11) Cellulitis Current Visit: Yes Status: Acute (12) Acute renal failure Current Visit: Yes Status: Acute Qualifiers: Acute renal failure type: with acute tubular necrosis Qualified Code(s): N17.0 - Acute kidney failure with tubular necrosis (13) GI bleed Current Visit: Yes Status: Acute (14) Anemia Current Visit: Yes Status: Acute (15) Thrombocytopenia Current Visit: Yes Status: Resolved (16) DVT (deep venous thrombosis) Current Visit: Yes Status: Acute Subjective Date of service: 04/17/19 Principal diagnosis: anemia - DVT IJ Interval history: pt resting in bed, awake and alert. in AFib with RVR. Objective Last Vital Signs Temp 99.1 F 04/17/19 08:00 Pulse 157 H 04/17/19 14:25 Resp 26 H 04/17/19 12:00 BP 143/94 04/17/19 11:00 Pulse Ox 95 04/17/19 12:00 - Physical Examination General: No Apparent Distress HEENT: Positive: EOMI, Normocephaly, Mucus Membranes Moist Neck: Positive: neck supple, trachea midline Cardiac: Positive: irregularly irregular, S1/S2, Tachycardia Lungs: Positive: Decreased Breath Sounds Neuro: Positive: Grossly Intact, Other (awake, alert and oriented) Abdomen: Positive: Soft, Active Bowel Sounds. Negative: Tender /Rectal: Other (deferred) Skin: Positive: Clear. Negative: Rash Musculoskeletal: Normal Range of Motion Extremities: Present: normal. Absent: edema - Labs and Meds CBC 04/17/19 Range/Units 04:15 WBC 15.8 H (4.5-11.0) K/mm3 RBC 3.32 L (3.65-5.03) M/mm3 Hgb 9.5 L (11.8-15.2) gm/dl Hct 29.9 L (35.5-45.6) % Plt Count 225 (140-440) K/mm3 Lymph # 2.0 (1.2-5.4) K/mm3 [place] # 1.7 H (0.0-0.8) K/mm3 Eos # 0.1 (0.0-0.4) K/mm3 Baso # 0.1 (0.0-0.1) K/mm3 Comprehensive Metabolic Panel 04/17/19 Range/Units 04:15 Sodium 150 H (137-145) mmol/L Potassium 3.1 L (3.6-5.0) mmol/L Chloride 102.2 (98-107) mmol/L Carbon Dioxide 32 H (22-30) mmol/L BUN 65 H (9-20) mg/dL Creatinine 4.0 H (0.8-1.5) mg/dL Glucose 107 H (75-100) mg/dL Calcium 12.0 H (8.4-10.2) mg/dL - Imaging and Cardiology Echo: report reviewed ( EF 40-45%, impaired relaxation. ) - EKG Sinus rhythms and dysrhythmias: sinus rhythm - Allied health notes Allied health notes reviewed: nursing
--- NOTE | 2019-04-17 15:52 | Progress Note ---
Assessment and Plan Cultures: 03/16/2019 sputum: salivary contamination 03/16/2019 Blood culture: no growth 03/17/2019 Urine culture no growth 03/17/2019 throat culture: no growth 03/26/2019 Blood culture: no growth 03/27/2019 Blood culture negative. 04/04/2019 blood culture NGTD 04/05/2019 urine culture: no growth 04/11/2019 blood culture: no growth 04/15/2019 blood culture: in process Assessment: 43y/o male with possible psych history admitted on 03/16/2019 with: 1) Septic shock: Resolved. Fever after right IJ exchanged overwire on 03/27, fever is better; leukocytosis resolved. Fever source is unclear - suspect IJ DV T ?thrombophlebitis, other ?NMS ?sinusitis, ?drug fever. Brain MRI showed no acute intracranial abnormality, mild nonspecific chronic white matter changes, fluid throughout the sinuses and mastoid air cells. Venous US + right IJ DVT. Completed empiric Cefepime x 10 days on 04/06/2019. Initial septic shock - Possible Infectious etiology v/s possibility of Neuroleptic Malignant Syndrome given psych history, high fever of 105F and extremely elevated CPK of >100K. Unclear if he was on any psych med. From ID standpoint, we will continue broad coverage for acute bacterial meningitis, tick borne illness, aspiration pneumonia. Blood culture negative UA with mild pyuria. HIV rapid negative. Strep A rapid ag negative. No obvious infectious source identified yet. 2) High fevers with elevated WBC: ?drug fever v/s infected HD cath. Blood cultures have remained negative. CXR with no obvious pneumonia. 3) Probable aspiration pneumonia, fluid overload, acute resp failure: on oxygen. Previously completed abx. 4) Acute encephalopathy: improving, awake, alert, calm. 5) Acute renal failure: renally dosing all abx, now on iHD. 6) Elevated LFTs/shock liver: resolved. 7) Thrombocytopenia: platelet normalized. 8) Rhabdomyolysis: CK normalized. 9) Multiple superficial wounds: do not appear infected. Continue wound care. Recommendations: patient spiking high fevers, no obvious source has been identified. Blood cultures have remained negative. Discussed with Dr. Rice from nephrology, plan to remove HD catheter after dialysis tomorrow Restart abx: IV aztreonam and linezolid (in case of possible drug fever) renally adjusted f/u LANDY, C3, C4 f/u blood cultures from 04/15/2019 Continue wound care d/w Dr. Fox. Katherine Elizabeth MD, FACP [facility] C: [phone] O: [phone] F: [phone] Subjective Date of service: 04/17/19 Principal diagnosis: anemia - DVT IJ Interval history: Drowsy today. Spiking high fevers up to 103F. No diarrhea. Discussed with RN. Objective - Exam Narrative Exam: Physical Exam: Constitutional: drowsy, can be awakened Head, Ears, Nose: Normocephalic, atraumatic. External ears, nose normal Eyes: Conjunctivae/corneas clear. No icterus. No ptosis. Neck: Supple, no meningeal signs. R IJ HD cath + Cardiovascular: S1, S2 normal. Respiratory: few rhonchi b/l GI: Soft, non-tender; bowel sounds normal. No peritoneal signs Musculoskeletal: anasarca+ with pedal and scrotal edema + Skin: superficial wounds with weeping, dressings + Hem/Lymphatic: No palpable cervical or supraclavicular nodes. No lymphangitis Psych: no agitation Neurological: drowsy, can be awakened, confused - Constitutional Vitals: Vital Signs Temp Pulse Resp BP Pulse Ox 99.1 F 157 H 26 H 143/94 95 04/17/19 08:00 04/17/19 14:25 04/17/19 12:00 04/17/19 11:00 04/17/19 12:00 Temperature -Last 24 Hours Temperature 99.1 F Temperature 101.2 F Temperature 102.2 F Temperature 98.7 F Temperature 103.1 F Temperature 102.6 F Temperature 98.4 F - Labs CBC & Chem 7: 04/17/19 04:15 04/17/19 04:15 Labs: Abnormal lab results 04/17/19 04/17/19 04/17/19 Range/Units 04:15 04:15 06:05 WBC 15.8 H (4.5-11.0) K/mm3 RBC 3.32 L (3.65-5.03) M/mm3 Hgb 9.5 L (11.8-15.2) gm/dl Hct 29.9 L (35.5-45.6) % RDW 16.9 H (13.2-15.2) % Lymph % (Auto) 12.6 L (13.4-35.0) % [place] % (Auto) 11.1 H (0.0-7.3) % [place] # 1.7 H (0.0-0.8) K/mm3 Seg Neutrophils % 74.7 H (40.0-70.0) % Seg Neutrophils # 11.8 H (1.8-7.7) K/mm3 Sodium 150 H (137-145) mmol/L Potassium 3.1 L (3.6-5.0) mmol/L Carbon Dioxide 32 H (22-30) mmol/L BUN 65 H (9-20) mg/dL Creatinine 4.0 H (0.8-1.5) mg/dL Glucose 107 H (75-100) mg/dL POC Glucose 111 H (70-105) Calcium 12.0 H (8.4-10.2) mg/dL Phosphorus 5.40 H (2.5-4.5) mg/dL C-Reactive Protein 7.10 H (0.00-1.30) mg/dL
--- NOTE | 2019-04-17 20:10 | Progress Note ---
Assessment and Plan 1. Acute kidney injury: Vasomotor RUBEN in the setting of shock / volume depletion / Rhabdo. Baseline renal function is unknown. CT abdomen was negative for obstructive nephropathy. Monitor renal function. Intermittent bladder scan less than 100 ml. Renal prognosis is guarded. Avoid nephrotoxic agents. Meds dosage based on GFR. Possible some improvement in the renal function. Hold hemodialysis for now and monitor renal function. Patient was started on hemodialysis on 03/18/19 due to worsening metabolic acidosis and hyperkalemia. Hemodialysis: 03/18, 03/19, 03/20, 03/22, 03/23, 03/24, 03/26, 03/28, 03/29, 03/31, 04/02, 04/04, 04/06, 04/09, 04/11, 04/13. 2. FEN: Hypokalemia, replete K. Hypernatremia, monitor. Metabolic acidosis, improved. Volume overload, improving. Hypercalcemia, monitor. Monitor lytes. 3. Septic shock: Followed by ID. Currently off pressors. Recurrent fever. 4. Rhabdomyolysis: Improved. 5. A.fib with RVR: On Amiodarone and Metoprolol. Followed by Cards. 6. Respiratory failure: Extubated. On BIPAP intermittently. 7. Severe anemia: S/p PRBC. On Epogen. 8. Elevated transaminases: Improved. 9. Encephalopathy. Examination: General appearance: well-developed, appears stated age, obese, NG tube noted HEENT: Atraumatic EYES: Pupils reacting to light Neck: supple Respiratory: CTAB, decreased breath sounds Cardiology: irregular, S1S2 heard, no murmur Gastrointestinal: obese, BS heard, not tender Integumentary: no rash noted Neurologic: opens eyes, not following any command Ext: L UE edematous Hemodialysis access: R IJ temp catheter Subjective Date of service: 04/17/19 Principal diagnosis: anemia - DVT IJ Interval history: Patient was seen and examined at the bedside. Objective - Vital Signs Vital signs: Vital Signs - 12hr 04/17/19 04/17/19 04/17/19 08:39 09:00 10:00 Temperature Pulse Rate 166 H 110 H Pulse Rate [ From Monitor] Respiratory 28 H 18 Rate Blood Pressure 141/80 133/88 O2 Sat by Pulse 96 94 94 Oximetry 04/17/19 04/17/1919 10:35 11:00 12:00 Temperature 101.1 F H Pulse Rate 157 H 96 H 156 H Pulse Rate [ 122 H From Monitor] Respiratory 35 H 36 H Rate Blood Pressure 133/88 143/94 138/90 O2 Sat by Pulse 96 95 Oximetry 04/17/19 04/17/19 04/17/19 13:00 14:00 14:25 Temperature Pulse Rate 135 H 127 H 157 H Pulse Rate [ From Monitor] Respiratory 21 17 Rate Blood Pressure 142/96 125/58 O2 Sat by Pulse 95 96 Oximetry 04/17/19 04/17/19 04/17/19 15:00 16:00 17:00 Temperature 97.5 F L Pulse Rate 93 H 103 H Pulse Rate [ 98 H From Monitor] Respiratory 27 H 26 H 31 H Rate Blood Pressure 107/67 115/71 109/65 O2 Sat by Pulse 97 97 98 Oximetry 04/17/19 04/17/19 18:00 20:06 Temperature 102.6 F H Pulse Rate 155 H Pulse Rate [ From Monitor] Respiratory 20 Rate Blood Pressure 109/65 O2 Sat by Pulse 93 Oximetry - Lab 04/17/19 04:15 04/17/19 04:15 Most recent lab results ABG pH 7.388 pH Units (7.350-7.450) 04/06/19 05:20 ABG pCO2 38.5 mm Hg 04/06/19 05:20 ABG pO2 104.0 mm Hg (80.0-90.0) H 04/06/19 05:20 ABG HCO3 22.6 mmol/L (20.0-26.0) 04/06/19 05:20 ABG O2 Saturation 97.8 % (95.0-99.0) 04/06/19 05:20 Calcium 12.0 mg/dL (8.4-10.2) H 04/17/19 04:15 Phosphorus 5.40 mg/dL (2.5-4.5) H 04/17/19 04:15 Magnesium 1.90 mg/dL (1.7-2.3) 03/31/19 15:07 Urine Creatinine 106.6 mg/dL (0.1-20.0) H 03/17/19 16:05 Urine Sodium 95 mmol/L 03/17/19 16:05 Medications & Allergies - Medications Allergies/Adverse Reactions: Allergies No Known Allergies Allergy (Unverified 03/16/19 17:17) Home Medications: Home Medications Medication Instructions Recorded Confirmed Last Taken Type Unobtainable 03/18/19 03/18/19 Unknown History Active Medications: Generic Name Dose Route Start Last Admin Trade Name Freq PRN Reason Stop Dose Admin Acetaminophen 650 mg 04/02/19 23:26 04/17/19 14:25 Tylenol PO 650 mg Q4H PRN Administration Pain, Mild (1-3),temp>100.5 Albuterol 2.5 mg 03/29/19 13:08 Proventil IH Q4HRT PRN Shortness Of Breath Amiodarone HCl 200 mg 04/15/19 22:00 04/17/19 10:35 Cordarone PO 200 mg BID PAOLO Administration Bacitracin 1 applic 04/17/19 08:00 Antibiotic Oint TP Q4H PRN upper lip sore/open Dextrose 50 gm 04/17/19 08:00 D50w (25gm) Vial IV Q1H PRN Hypoglycemia Epoetin Jet 20,000 unit 03/31/19 10:15 04/13/19 17:41 Procrit SUB-Q 20,000 unit NEYMAR PRN Administration hemodialysis Hydralazine HCl 20 mg 04/14/19 03:00 04/14/19 03:11 Apresoline IV 20 mg Q4H PRN Administration hypertemsion Hydrophilic Ointment 1 applic 03/16/19 15:50 Vaseline Lip Therapy TP Q2HR PRN Dry Lips Sodium Chloride 100 mls @ 999 mls/hr 04/13/19 08:30 Nacl 0.9% IV NEYMAR PRN Hypotension Aztreonam 2 gm in 100 mls @ 100 mls/hr 04/17/19 18:00 Azactam/Ns 2 Gm/100 Ml IV Q24HR PAOLO Protocol Linezolid 600 mg in 300 mls @ 300 mls/hr 04/17/19 17:00 Zyvox 600mg/300ml IV Q12H PAOLO Protocol Lansoprazole 30 mg 04/11/19 10:00 04/17/19 10:36 Prevacid Solutab FEEDTUBE 30 mg BID PAOLO Administration Metoprolol Tartrate 5 mg 04/16/19 22:24 04/17/19 14:25 Lopressor IV 5 mg Q6H PRN Administration For HR >120 Metoprolol Tartrate 25 mg 04/17/19 20:00 Lopressor PO TID PAOLO Multi-Ingred Cream/Lotion/Oil/Oint 1 applic 03/16/19 15:50 03/19/19 20:10 Artificial Tears Ophth Oint OU 1 applic Q4HR PRN Administration Dry Eye(s)
[2019-04-17] MEDS ORDERED: POTASSIUM CHLORIDE 20 MEQ PACKET FEEDTUBE ONE (20:11)
[2019-04-17] MEDS: LINEZOLID 600 MG/300 ML BAG IV SCH (20:14)
[2019-04-17] MEDS: AZTREONAM/NS 2 GM/100 ML 2 GM/100 ML VIAL IV SCH (21:59)
[2019-04-18] MEDS: LINEZOLID 600 MG/300 ML BAG IV SCH ×2 (04:51→16:54)
[2019-04-18 05:25] LABS: Hematocrit 27.5 % (35.5-45.6); Hemoglobin 8.6 gm/dl (11.8-15.2); Mean Corpuscular HGB Conc 31 % (32-34); Mean Corpuscular Volume 91 fl (84-94); Platelet Count 230 K/mm3 (140-440); Red Blood Count 3.03 M/mm3 (3.65-5.03); Red Cell Distribution Width 16.9 % (13.2-15.2)
[2019-04-18 06:12] LABS: Calcium 11.4 mg/dL (8.4-10.2)
--- NOTE | 2019-04-18 06:58 | Hem/Onc Progress Note ---
Assessment and Plan 1. h/o Anemia. The patient has history of bleeding. 2. rt Internal jugular partial thrombosis. The patient was started on heparin. This has been held due to bleeding 3. Gastrointestinal bleed. 4. h/o Elevated creatinine kinase. 5. h/o Low calcium. 6. h/o Thrombocytopenia. 7. h/o Renal failure. 8. h/o Intubation. 9. s/p Transfusion support. 10. Leukocytosis. At this time, supportive care may help the patient. The patient's platelet was low at admission. Urine toxicology was negative. awake extubated dvt - off anticoagulation - due to bleeding platelet - > 100 s/p iv iron trial pt was on BIPAP h/o tachycardia - on meds moving arms>legs left arm swelling - d/w dr gallardo - Patient Problems (1) DVT (deep venous thrombosis) Current Visit: Yes Status: Acute Subjective Date of service: 04/18/19 Principal diagnosis: anemia - neck DVT Interval history: left arm swelling - more awake Objective - Exam Narrative Exam: Pain - none now General appearance - awake Performance status limited self care Eyes - no icterus ENT - extubated LNs cervical not palpable Neck - no LN Respiratory Normal Breath sounds - CTA anteriorly CVS S1 S2 + Extremities edema + General GI Soft Rectal deferred male - deferred Skin warm Musculoskeletal arms>legs Neurologically awake - Constitutional Vitals: Last Vital Signs Temp 98.4 F 04/18/19 04:00 Pulse 97 H 04/18/19 04:00 Resp 19 04/18/19 04:00 BP 114/65 04/18/19 04:00 Pulse Ox 98 04/18/19 04:00 - Labs Lab Results: Laboratory Results - last 24 hr 04/17/19 04/17/19 04/18/19 12:49 18:12 00:23 WBC RBC Hgb Hct MCV MCH MCHC RDW Plt Count Sodium Potassium Chloride Carbon Dioxide Anion Gap BUN Creatinine Estimated GFR BUN/Creatinine Ratio Glucose POC Glucose 108 H 103 115 H Calcium 04/18/19 04/18/19 04/18/19 04:41 04:41 06:17 WBC 19.4 H RBC 3.03 L Hgb 8.6 L Hct 27.5 L MCV 91 MCH 28 MCHC 31 L RDW 16.9 H Plt Count 230 Sodium 152 H Potassium 3.0 L Chloride 103.7 Carbon Dioxide 29 Anion Gap 22 BUN 80 H Creatinine 4.3 H Estimated GFR 15 BUN/Creatinine Ratio 19 Glucose 103 H POC Glucose 124 H Calcium 11.4 H Medications & Allergies - Medications Allergies/Adverse Reactions: Allergies No Known Allergies Allergy (Unverified 03/16/19 17:17) Home Medications: Home Medications Medication Instructions Recorded Confirmed Last Taken Type Unobtainable 03/18/19 03/18/19 Unknown History Active Medications: Generic Name Dose Route Start Last Admin Trade Name Freq PRN Reason Stop Dose Admin Acetaminophen 650 mg 04/02/19 23:26 04/17/19 22:45 Tylenol PO 650 mg Q4H PRN Administration Pain, Mild (1-3),temp>100.5 Albuterol 2.5 mg 03/29/19 13:08 Proventil IH Q4HRT PRN Shortness Of Breath Amiodarone HCl 200 mg 04/15/19 22:00 04/17/19 21:58 Cordarone PO 200 mg BID PAOLO Administration Bacitracin 1 applic 04/17/19 08:00 Antibiotic Oint TP Q4H PRN upper lip sore/open Dextrose 50 gm 04/17/19 08:00 D50w (25gm) Vial IV Q1H PRN Hypoglycemia Epoetin Jet 20,000 unit 03/31/19 10:15 04/13/19 17:41 Procrit SUB-Q 20,000 unit NEYMAR PRN Administration hemodialysis Hydralazine HCl 20 mg 04/14/19 03:00 04/14/19 03:11 Apresoline IV 20 mg Q4H PRN Administration hypertemsion Hydrophilic Ointment 1 applic 03/16/19 15:50 Vaseline Lip Therapy TP Q2HR PRN Dry Lips Sodium Chloride 100 mls @ 999 mls/hr 04/13/19 08:30 Nacl 0.9% IV NEYMAR PRN Hypotension Aztreonam 2 gm in 100 mls @ 100 mls/hr 04/17/19 18:00 04/17/19 21:59 Azactam/Ns 2 Gm/100 Ml IV 100 mls/hr Q24HR PAOLO Administration Protocol Linezolid 600 mg in 300 mls @ 300 mls/hr 04/17/19 17:00 04/18/19 04:51 Zyvox 600mg/300ml IV 300 mls/hr Q12H PAOLO Administration Protocol Lansoprazole 30 mg 04/11/19 10:00 04/17/19 21:58 Prevacid Solutab FEEDTUBE 30 mg BID PAOLO Administration Metoprolol Tartrate 5 mg 04/16/19 22:24 04/17/19 14:25 Lopressor IV 5 mg Q6H PRN Administration For HR >120 Metoprolol Tartrate 25 mg 04/17/19 20:00 04/17/19 20:14 Lopressor PO 25 mg TID PAOLO Administration Multi-Ingred Cream/Lotion/Oil/Oint 1 applic 03/16/19 15:50 03/19/19 20:10 Artificial Tears Ophth Oint OU 1 applic Q4HR PRN Administration Dry Eye(s)
[2019-04-18] MEDS ORDERED: SODIUM CHLORIDE 0.9% 100 ML IV PRN (07:30)
[2019-04-18] MEDS: METOPROLOL TARTRATE 25 MG TAB PO SCH ×3 (08:08→21:25)
--- NOTE | 2019-04-18 09:19 | Progress Note ---
Assessment and Plan Assessment and plan: Acute hypoxic respiratory failure. Continue BiPAP as clinically indicated. Atrial fibrillation. Continue Metoprolol. Cardiology following. No systemic AC regarding AFib in setting of anemia, thrombocytopenia, GI bleed. Acute blood loss anemia. Patient with GI bleed secondary to peptic ulcer diseas e. EGD completed per GI. Continue PRBCs as needed. I'll of H&H. GI bleed/peptic ulcer disease. Continue PPI. Transfuse PRBCs as needed. Sepsis/septic shock. Continue antibiotics per ID. Follow-up blood cultures. Levaquin added. ID following. Patient with recurrent fevers. Ischemic hepatitis/shock liver. Elevated LFTs improved. Viral hepatitis panel negative. Acute kidney injury. Patient now with hemodialysis. Patient was started on hemodialysis on 03/18/19 due to worsening metabolic acidosis and hyperkalemia. Baseline renal function is unknown. CT abdomen was negative for obstructive nephropathy. Avoid nephrotoxic agents. Continue hemodialysis per nephrology. Toxic metabolic encephalopathy. Brain MRI showed no acute intracranial abnormality, mild nonspecific chronic white matter changes, fluid throughout the sinuses and mastoid air cells. Swelling both upper ext L>R Will do Doppler US Hypokalemia. Replete potassium as needed. Hypernatremia. Bumex was stopped. Follow-up BMP Repeat BMP in morning Nephrology following Thrombocytopenia. Etiology likely secondary to sepsis. Resolved. Rhabdomyolysis. CK normalized. Patient doing better History Interval history: Feels better Fever asking when he can start eating food Hospitalist Physical - Physical exam Narrative exam: Gen: Not in acute distress, lying in bed, morbidly obese HEENT: Normocephalic, atraumatic, NG tube Neck: supple, no JVD Heart: S1 and S2 reg, no murmurs, rubs or gallop Lungs: Clear to auscultation, no rhonchi, no wheeze Abd: soft, non tender, non distended, normal BS, Ext: bilateral upper ext edema, L>R, no clubbing, no cyanosis Neuro: Awake, drowsy, no focal neurological signs - Constitutional Vitals: Temp Pulse Resp BP Pulse Ox 98.5 F 81 35 H 121/61 98 04/18/19 08:00 04/18/19 09:00 04/18/19 09:00 04/18/19 09:00 04/18/19 09:00 General appearance: Present: obese Results - Labs CBC & Chem 7: 04/18/19 04:41 04/18/19 04:41 Labs: Laboratory Last Values WBC 19.4 K/mm3 (4.5-11.0) H 04/18/19 04:41 RBC 3.03 M/mm3 (3.65-5.03) L 04/18/19 04:41 Hgb 8.6 gm/dl (11.8-15.2) L 04/18/19 04:41 Hct 27.5 % (35.5-45.6) L 04/18/19 04:41 MCV 91 fl (84-94) 04/18/19 04:41 MCH 28 pg (28-32) 04/18/19 04:41 MCHC 31 % (32-34) L 04/18/19 04:41 RDW 16.9 % (13.2-15.2) H 04/18/19 04:41 Plt Count 230 K/mm3 (140-440) 04/18/19 04:41 Lymph % (Auto) 12.6 % (13.4-35.0) L 04/17/19 04:15 [place] % (Auto) 11.1 % (0.0-7.3) H 04/17/19 04:15 Eos % (Auto) 0.8 % (0.0-4.3) 04/17/19 04:15 Baso % (Auto) 0.8 % (0.0-1.8) 04/17/19 04:15 Lymph # 2.0 K/mm3 (1.2-5.4) 04/17/19 04:15 [place] # 1.7 K/mm3 (0.0-0.8) H 04/17/19 04:15 Eos # 0.1 K/mm3 (0.0-0.4) 04/17/19 04:15 Baso # 0.1 K/mm3 (0.0-0.1) 04/17/19 04:15 Add Manual Diff Complete 04/11/19 04:16 Total Counted 100 04/11/19 04:16 Seg Neutrophils % 74.7 % (40.0-70.0) H 04/17/19 04:15 Seg Neuts % (Manual) 71.0 % (40.0-70.0) H 04/11/19 04:16 Band Neutrophils % 1.0 % 04/11/19 04:16 Lymphocytes % (Manual) 17.0 % (13.4-35.0) 04/11/19 04:16 Reactive Lymphs % (Man) 0 % 04/11/19 04:16 Monocytes % (Manual) 8.0 % (0.0-7.3) H 04/11/19 04:16 Eosinophils % (Manual) 2.0 % (0.0-4.3) 04/11/19 04:16 Basophils % (Manual) 1.0 % (0.0-1.8) 04/11/19 04:16 Metamyelocytes % 0 % 04/11/19 04:16 Myelocytes % 0 % 04/11/19 04:16 Promyelocytes % 0 % 04/11/19 04:16 Blast Cells % 0 % 04/11/19 04:16 Nucleated RBC % Not Reportable 04/11/19 04:16 Seg Neutrophils # 11.8 K/mm3 (1.8-7.7) H 04/17/19 04:15 Seg Neutrophils # Man 8.2 K/mm3 (1.8-7.7) H 04/11/19 04:16 Band Neutrophils # 0.1 K/mm3 04/11/19 04:16 Lymphocytes # (Manual) 2.0 K/mm3 (1.2-5.4) 04/11/19 04:16 Abs React Lymphs (Man) 0.0 K/mm3 04/11/19 04:16 Monocytes # (Manual) 0.9 K/mm3 (0.0-0.8) H 04/11/19 04:16 Eosinophils # (Manual) 0.2 K/mm3 (0.0-0.4) 04/11/19 04:16 Basophils # (Manual) 0.1 K/mm3 (0.0-0.1) 04/11/19 04:16 Metamyelocytes # 0.0 K/mm3 04/11/19 04:16 Myelocytes # 0.0 K/mm3 04/11/19 04:16 Promyelocytes # 0.0 K/mm3 04/11/19 04:16 Blast Cells # 0.0 K/mm3 04/11/19 04:16 WBC Morphology Not Reportable 04/11/19 04:16 Hypersegmented Neuts Not Reportable 04/11/19 04:16 Hyposegmented Neuts Not Reportable 04/11/19 04:16 Hypogranular Neuts Not Reportable 04/11/19 04:16 Smudge Cells Not Reportable 04/11/19 04:16 Toxic Granulation Not Reportable 04/11/19 04:16 Toxic Vacuolation Not Reportable 04/11/19 04:16 Dohle Bodies Not Reportable 04/11/19 04:16 Pelger-Huet Anomaly Not Reportable 04/11/19 04:16 Joyce Rods Not Reportable 04/11/19 04:16 Platelet Estimate Consistent w auto 04/11/19 04:16 Clumped Platelets Not Reportable 04/11/19 04:16 Plt Clumps, EDTA Not Reportable 04/11/19 04:16 Large Platelets Not Reportable 04/11/19 04:16 Giant Platelets Not Reportable 04/11/19 04:16 Platelet Satelliting Not Reportable 04/11/19 04:16 Plt Morphology Comment Not Reportable 04/11/19 04:16 RBC Morphology Not Reportable 04/11/19 04:16 Dimorphic RBCs Not Reportable 04/11/19 04:16 Polychromasia Not Reportable 04/11/19 04:16 Hypochromasia Not Reportable 04/11/19 04:16 Poikilocytosis Not Reportable 04/11/19 04:16 Anisocytosis Rare 04/11/19 04:16 Microcytosis Rare 04/11/19 04:16 Macrocytosis Not Reportable 04/11/19 04:16 Spherocytes Not Reportable 04/11/19 04:16 Pappenheimer Bodies Not Reportable 04/11/19 04:16 Sickle Cells Not Reportable 04/11/19 04:16 Target Cells Not Reportable 04/11/19 04:16 Tear Drop Cells Not Reportable 04/11/19 04:16 Ovalocytes Not Reportable 04/11/19 04:16 Stomatocytes Few 03/26/19 Unknown Helmet Cells Not Reportable 04/11/19 04:16 [place] Bodies Not Reportable 04/11/19 04:16 Left Hand Rings Not Reportable 04/11/19 04:16 [place] Cells Not Reportable 04/11/19 04:16 Bite Cells Not Reportable 04/11/19 04:16 Crenated Cell Not Reportable 04/11/19 04:16 Elliptocytes Not Reportable 04/11/19 04:16 Acanthocytes (Spur) Not Reportable 04/11/19 04:16 Rouleaux Not Reportable 04/11/19 04:16 Hemoglobin C Crystals Not Reportable 04/11/19 04:16 Schistocytes Not Reportable 04/11/19 04:16 Malaria parasites Not Reportable 04/11/19 04:16 Phil Bodies Not Reportable 04/11/19 04:16 Hem Pathologist Commnt No 04/11/19 04:16 PT 15.3 Sec. (12.2-14.9) H 03/29/19 11:48 INR 1.24 (0.87-1.13) H 03/29/19 11:48 APTT 26.6 Sec. (24.2-36.6) 03/28/19 12:00 Fibrinogen 226 mg/dl (211-480) 03/28/19 12:00 D-Dimer 4845.98 ng/mlDDU (0-234) H 03/28/19 12:00 Heparin Anti-Xa Level 0.23 U.I./ml (0.3-0.7) L 03/28/19 05:13 POC ABG pH 7.401 (7.35-7.45) 04/07/19 12:57 ABG pH 7.388 pH Units (7.350-7.450) 04/06/19 05:20 POC ABG pCO2 41.5 (35-45) 04/07/19 12:57 ABG pCO2 38.5 mm Hg 04/06/19 05:20 POC ABG pO2 107 (80-105) H 04/07/19 12:57 ABG pO2 104.0 mm Hg (80.0-90.0) H 04/06/19 05:20 POC ABG HCO3 25.7 (22-26 mml/L) 04/07/19 12:57 ABG HCO3 22.6 mmol/L (20.0-26.0) 04/06/19 05:20 POC ABG Total CO2 27 (23-27mmol/L) 04/07/19 12:57 POC ABG O2 Sat 98 04/07/19 12:57 ABG O2 Saturation 97.8 % (95.0-99.0) 04/06/19 05:20 ABG O2 Content 10.0 (0.0-44) 04/06/19 05:20 POC ABG Base Excess 1 ((-2) - (+3)mmol/L) 04/07/19 12:57 ABG Base Excess -2.1 mmol/L (-2.0-3.0) L 04/06/19 05:20 ABG Hemoglobin 7.3 gm/dl (14.0-18.0) L 04/06/19 05:20 ABG Carboxyhemoglobin 1.7 % (0.0-5.0) 04/06/19 05:20 ABG Methemoglobin 0.6 % (0.0-1.5) 04/06/19 05:20 Oxyhemoglobin 95.5 % (95.0-99.0) 04/06/19 05:20 FiO2 30 % 04/07/19 12:57 Sodium 152 mmol/L (137-145) H 04/18/19 04:41 Potassium 3.0 mmol/L (3.6-5.0) L 04/18/19 04:41 Chloride 103.7 mmol/L (98-107) 04/18/19 04:41 Carbon Dioxide 29 mmol/L (22-30) 04/18/19 04:41 Anion Gap 22 mmol/L 04/18/19 04:41 BUN 80 mg/dL (9-20) H 04/18/19 04:41 Creatinine 4.3 mg/dL (0.8-1.5) H 04/18/19 04:41 Estimated GFR 15 ml/min 04/18/19 04:41 BUN/Creatinine Ratio 19 % 04/18/19 04:41 Glucose 103 mg/dL (75-100) H 04/18/19 04:41 POC Glucose 124 (70-105) H 04/18/19 06:17 Lactic Acid 1.90 mmol/L (0.7-2.0) 03/21/19 21:31 Calcium 11.4 mg/dL (8.4-10.2) H 04/18/19 04:41 Ionized Calcium 3.7 mg/dL (4.8-5.6) L 03/30/19 12:09 Phosphorus 5.40 mg/dL (2.5-4.5) H 04/17/19 04:15 Magnesium 1.90 mg/dL (1.7-2.3) 03/31/19 15:07 Iron 26 ug/dL (49-181) L 04/02/19 05:03 TIBC 138 mcg/dL (250-450) L 04/02/19 05:03 Ferritin 607.0 ng/mL (13.0-400.0) H 04/02/19 05:03 Total Bilirubin 0.50 mg/dL (0.1-1.2) 04/13/19 05:00 Direct Bilirubin 0.4 mg/dL (0-0.2) H 03/31/19 08:20 Indirect Bilirubin 0.1 mg/dL 03/31/19 08:20 AST 21 units/L (5-40) 04/13/19 05:00 ALT 13 units/L (7-56) 04/13/19 05:00 Alkaline Phosphatase 52 units/L (35-129) 04/13/19 05:00 Total Creatine Kinase 62 units/L (55-170) 04/07/19 05:40 CK-MB (CK-2) 54.3 ng/mL (0.0-4.0) H 03/17/19 07:16 CK-MB (CK-2) Rel Index 0.0 (0-4) 03/17/19 07:16 Troponin T 0.058 ng/mL (0.00-0.029) H 03/17/19 07:16 C-Reactive Protein 7.10 mg/dL (0.00-1.30) H 04/17/19 04:15 Total Protein 5.8 g/dL (6.3-8.2) L 04/13/19 05:00 Albumin 2.5 g/dL (3.9-5) L 04/13/19 05:00 Albumin/Globulin Ratio 0.8 % 04/13/19 05:00 Triglycerides 309 mg/dL (2-149) H 03/29/19 06:22 Cholesterol 88 mg/dL (50-199) 03/16/19 22:32 LDL Cholesterol Direct 10 mg/dL (50-130) L 03/16/19 22:32 HDL Cholesterol 7 mg/dL (40-59) L 03/16/19 22:32 Cholesterol/HDL Ratio 12.57 % 03/16/19 22:32 Vitamin B12 903.0 pg/mL (211-911) 04/02/19 05:03 Folate 8.05 ng/mL (7.3-26.0) 04/02/19 05:03 Procalcitonin 25.42 ng/mL (<0.15) 03/27/19 19:21 TSH 2.200 mlU/mL (0.270-4.200) 03/16/19 17:05 Free T4 0.72 ng/dL (0.76-1.46) L 03/16/19 17:05 PTH Intact 329.9 pg/mL (15-65) H 03/25/19 05:00 Urine Color Yellow (Yellow) 04/15/19 22:11 Urine Turbidity Clear (Clear) 04/15/19 22:11 Urine pH 6.0 (5.0-7.0) 04/15/19 22:11 Ur Specific [place] 1.010 (1.003-1.030) 04/15/19 22:11 Urine Protein 30 mg/dl mg/dL (Negative) 04/15/19 22:11 Urine Glucose (UA) Neg mg/dL (Negative) 04/15/19 22:11 Urine Ketones Neg mg/dL (Negative) 04/15/19 22:11 Urine Blood Mod (Negative) 04/15/19 22:11 Urine Nitrite Neg (Negative) 04/15/19 22:11 Urine Bilirubin Neg (Negative) 04/15/19 22:11 Urine Urobilinogen < 2.0 mg/dL (<2.0) 04/15/19 22:11 Ur Leukocyte Esterase Neg (Negative) 04/15/19 22:11 Urine WBC (Auto) 4.0 /HPF (0.0-6.0) 04/15/19 22:11 Urine RBC (Auto) 2.0 /HPF (0.0-6.0) 04/15/19 22:11 U Epithel Cells (Auto) < 1.0 /HPF (0-13.0) 04/15/19 22:11 Amorphous Crystals 1+ 04/05/19 16:50 Urine Mucus Few /HPF 03/17/19 16:05 Urine Sperm 2+ /HPF (BUTTON TUFTER) 03/17/19 16:05 Urine Eosinophils None seen (None Seen) 03/17/19 16:05 Urine Creatinine 106.6 mg/dL (0.1-20.0) H 03/17/19 16:05 Urine Sodium 95 mmol/L 03/17/19 16:05 Vancomycin Trough 11.5 ug/mL (5.0-20.0) 03/18/19 13:19 Random Vancomycin 10.8 ug/mL (0-40.0) 04/14/19 03:55 Salicylates < 0.3 mg/dL (2.8-20.0) L 03/16/19 17:05 Urine Opiates Screen Presumptive negative 03/17/19 16:05 Urine Methadone Screen Presumptive negative 03/17/19 16:05 Acetaminophen < 5.0 ug/mL (10.0-30.0) L 03/16/19 17:05 Ur Barbiturates Screen Presumptive negative 03/17/19 16:05 Ur Phencyclidine Scrn Presumptive negative 03/17/19 16:05 Ur Amphetamines Screen Presumptive negative 03/17/19 16:05 U Benzodiazepines Scrn Presumptive positive 03/17/19 16:05 Urine Cocaine Screen Presumptive negative 03/17/19 16:05 U Marijuana (THC) Screen Presumptive negative 03/17/19 16:05 Drugs of Abuse Note Disclamer 03/17/19 16:05 Plasma/Serum Alcohol < 0.01 % (0-0.07) 03/16/19 17:05 Hepatitis A IgM Ab Non-reactive (NonReactive) 03/18/19 13:18 Hep Bs Antigen Non-reactive (Negative) 03/18/19 13:18 Hep B Core IgM Ab Non-reactive (NonReactive) 03/18/19 13:18 Hepatitis C Antibody Non-reactive (NonReactive) 03/18/19 13:18 HIV 1&2 Antibody Rapid Non react (Non React) 03/17/19 11:52 HIV P24 Antigen Non react (Non React) 03/17/19 11:52 Influenza A (Rapid) Negative (Negative) 03/17/19 17:00 Influenza B (Rapid) Negative (Negative) 03/17/19 17:00 Group A Strep Rapid Negative (Negative) 03/17/19 17:00 Miscellaneous Test Flexitest 1 03/21/19 12:00 Blood Type A POSITIVE 04/02/19 16:34 Antibody Screen Negative 04/02/19 16:34 Crossmatch See Detail 04/02/19 16:34 Active Medications - Current Medications Current Medications: Generic Name Dose Route Start Last Admin Trade Name Freq PRN Reason Stop Dose Admin Acetaminophen 650 mg 04/02/19 23:26 04/17/19 22:45 Tylenol PO 650 mg Q4H PRN Administration Pain, Mild (1-3),temp>100.5 Albuterol 2.5 mg 03/29/19 13:08 Proventil IH Q4HRT PRN Shortness Of Breath Amiodarone HCl 200 mg 04/15/19 22:00 04/17/19 21:58 Cordarone PO 200 mg BID PAOLO Administration Bacitracin 1 applic 04/17/19 08:00 Antibiotic Oint TP Q4H PRN upper lip sore/open Dextrose 50 gm 04/17/19 08:00 D50w (25gm) Vial IV Q1H PRN Hypoglycemia Epoetin Jet 20,000 unit 03/31/19 10:15 04/13/19 17:41 Procrit SUB-Q 20,000 unit NEYMAR PRN Administration hemodialysis Hydralazine HCl 20 mg 04/14/19 03:00 04/14/19 03:11 Apresoline IV 20 mg Q4H PRN Administration hypertemsion Hydrophilic Ointment 1 applic 03/16/19 15:50 Vaseline Lip Therapy TP Q2HR PRN Dry Lips Aztreonam 2 gm in 100 mls @ 100 mls/hr 04/17/19 18:00 04/17/19 21:59 Azactam/Ns 2 Gm/100 Ml IV 100 mls/hr Q24HR PAOLO Administration Protocol Linezolid 600 mg in 300 mls @ 300 mls/hr 04/17/19 17:00 04/18/19 04:51 Zyvox 600mg/300ml IV 300 mls/hr Q12H PAOLO Administration Protocol Sodium Chloride 100 mls @ 999 mls/hr 04/18/19 07:30 Nacl 0.9% IV NEYMAR PRN Hypotension Lansoprazole 30 mg 04/11/19 10:00 04/17/19 21:58 Prevacid Solutab FEEDTUBE 30 mg BID PAOLO Administration Metoprolol Tartrate 5 mg 04/16/19 22:24 04/17/19 14:25 Lopressor IV 5 mg Q6H PRN Administration For HR >120 Metoprolol Tartrate 25 mg 04/17/19 20:00 04/18/19 08:08 Lopressor PO 25 mg TID PAOLO Administration Multi-Ingred Cream/Lotion/Oil/Oint 1 applic 03/16/19 15:50 03/19/19 20:10 Artificial Tears Ophth Oint OU 1 applic Q4HR PRN Administration Dry Eye(s) Nutrition/Malnutrition Assess - Dietary Evaluation Nutrition/Malnutrition Findings: Nutrition Notes Start: 03/17/19 14:22 Freq: Status: Active Protocol: Document 04/13/19 10:52 RM (Rec: 04/13/19 10:58 RM [id number]) Nutrition Notes Initial or Follow up Reassessment Current Diagnosis Acute Kidney Injury,Heart Failure Other Pertinent Diagnosis on HD, Septic shock,Multiple organ failure, encephalopathy, Aspiration pneu Current Diet Nepro at 50 ml/hr Labs/Tests Na 142 BUN 42 Creat 4.6 K 3.5 Pertinent Medications Zofran, Bumetanide Height 6 ft Weight 148.5 kg [place] Body Weight (kg) 80.90 BMI 44.4 Subjective/Other Information Observed Nepro infusing at goal rate. Per nurse pt is tolerating TF. Percent of energy/protein needs met: 100%/100% Burn Absent Trauma Absent Minimum of two criteria No #1 Nutrition Diagnosis Inadequate oral intake Diagnosis Progress(for reassessment Continues documentation) Is patient on ventilator? No Is Patient Ambulatory and/or Out of Bed No REE-([facility]-confined to bed) 2892.144 Kcal/Kg value to use for calculation 14 Approximate Energy Requirements Using 9 kcal/Kg Calculation Used for Recommendations Kcal/kg Additional Notes Protein: 97-121g (1.2-1.5g/kg, IBW) Fluids:1 ml/kcal or per MD Nutrition Intervention Nutrition Support: Nepro 1.8 at 50 ml/hr Water flush 150 ml q4hr or per MD Kcal 2,160 Protein (gm) 97 Fluid (mL) 872 Goal #1 TF tolerance Goal #2 Continue to meet at least 75% of calorie and protein needs via TF Anticipated Discharge Needs: Unable to determine at this time Follow-Up By: 04/20/19 Additional Comments Follow for TF tolerance
[2019-04-18] MEDS: LANSOPRAZOLE 30 MG SOLUTAB FEEDTUBE SCH ×2 (09:24→21:25)
[2019-04-18] MEDS: AMIODARONE 200 MG TAB PO SCH ×2 (09:25→21:25)
[2019-04-18] MEDS: AZTREONAM/NS 2 GM/100 ML 2 GM/100 ML VIAL IV SCH (09:26)
[2019-04-18 10:43] LABS: Hepatitis B Surface Antigen Non-Reactive (Negative); Hepatitis C Virus Antibody Non-Reactive (NonReactive)
--- NOTE | 2019-04-18 11:19 | Vascular Lab Report ---
BILATERAL UPPER EXTREMITY VENOUS DOPPLER ULTRASOUND HISTORY: Upper extremity pain and swelling. COMPARISON: 03/26/2019 TECHNIQUE: Grayscale, color and spectral Doppler imaging of the venous system of both upper extremiti es was performed. FINDINGS: Right Upper Extremity: Internal Jugular Vein: There is residual thrombus in the right internal jugular vein but mild recannu lization of flow is noted. A catheter is identified in the right internal jugular vein. Subclavian Vein: Normal grayscale appearance and flow. Axillary Vein: Normal venous flow, compressibility and augmentation. Brachial vein: Normal venous flow, compressibility and augmentation. Radial vein: Normal venous flow, compressibility and augmentation. Ulnar vein: Normal venous flow, compressibility and augmentation. Basilic vein: Normal venous flow, compressibility and augmentation. Cephalic vein: Normal venous flow, compressibility and augmentation. Left Upper Extremity: Internal Jugular Vein: Normal grayscale appearance and flow. Subclavian Vein: Normal grayscale appearance and flow. Axillary Vein: Normal venous flow, compressibility and augmentation. Brachial vein: Normal venous flow, compressibility and augmentation. Radial vein: Normal venous flow, compressibility and augmentation. Ulnar vein: Normal venous flow, compressibility and augmentation. Basilic vein: Normal venous flow, compressibility and augmentation. Cephalic vein: Normal venous flow, compressibility and augmentation. Additional Findings: None. IMPRESSION: There is residual thrombus in the right internal jugular vein but this appears slightly decreased sin ce 03/26/2019 Signer Name: Linus Cantu Jr, MD Signed: 04/18/2019 11:14 AM Workstation Name: [id number]
[2019-04-18] MEDS: SODIUM HYPOCHLORITE, DAKIN'S 1/2 STRENGTH (0.25%) 473 ML TOPICAL SOLN TP SCH ×2 (12:36→21:28)
--- NOTE | 2019-04-18 14:08 | Progress Note ---
Assessment and Plan Cultures: 03/16/2019 sputum: salivary contamination 03/16/2019 Blood culture: no growth 03/17/2019 Urine culture no growth 03/17/2019 throat culture: no growth 03/26/2019 Blood culture: no growth 03/27/2019 Blood culture negative. 04/04/2019 blood culture NGTD 04/05/2019 urine culture: no growth 04/11/2019 blood culture: no growth 04/15/2019 blood culture: no growth Assessment: 43y/o male with possible psych history admitted on 03/16/2019 with: 1) Septic shock: Resolved. Fever after right IJ exchanged overwire on 03/27, fever is better; leukocytosis resolved. Fever source is unclear - suspect IJ DVT ?thrombophlebitis, other ?NMS ?sinusitis, ?drug fever. Brain MRI showed no acute intracranial abnormality, mild nonspecific chronic white matter changes, fluid throughout the sinuses and mastoid air cells. Venous US + right IJ DVT. Completed empiric Cefepime x 10 days on 04/06/2019. Initial septic shock - Possible Infectious etiology v/s possibility of Neuroleptic Malignant Syndrome given psych history, high fever of 105F and extremely elevated CPK of >100K. Unclear if he was on any psych med. From ID standpoint, we will continue broad coverage for acute bacterial meningitis, tick borne illness, aspiration pneumonia. Blood culture negative UA with mild pyuria. HIV rapid negative. Strep A rapid ag negative. No obvious infectious source identified yet. 2) High fevers with elevated WBC: ?drug fever v/s infected HD cath. Blood cultures have remained negative. CXR with no obvious pneumonia. 3) Probable aspiration pneumonia, fluid overload, acute resp failure: on oxygen. Previously completed abx. 4) Acute encephalopathy: improving, awake, alert, calm. 5) Acute renal failure: renally dosing all abx, now on iHD. 6) Elevated LFTs/shock liver: resolved. 7) Thrombocytopenia: platelet normalized. 8) Rhabdomyolysis: CK normalized. 9) Multiple superficial wounds: do not appear infected. Continue wound care. Recommendations: continue IV aztreonam and linezolid (in case of possible drug fever) renally adjusted remove HD catheter after dialysis if possible D/W Dr. Rice yesterday f/u LANDY, C3, C4 Continue wound care Katherine Elizabeth MD, FACP [facility] ([facility] C: [phone] O: [phone] F: [phone] Subjective Date of service: 04/18/19 Principal diagnosis: anemia - neck DVT Interval history: No fever today. WBC elevated. No new events per RN. Patient's HR is stable now. Objective - Exam Narrative Exam: Physical Exam: Constitutional: awake, alert Head, Ears, Nose: Normocephalic, atraumatic. External ears, nose normal Eyes: Conjunctivae/corneas clear. No icterus. No ptosis. Neck: Supple, no meningeal signs. R IJ HD cath + Cardiovascular: S1, S2 normal. Respiratory: clear b/l GI: Soft, non-tender; bowel sounds normal. No peritoneal signs Musculoskeletal: anasarca+ with pedal and scrotal edema + Skin: superficial wounds with weeping, dressings + Hem/Lymphatic: No palpable cervical or supraclavicular nodes. No lymphangitis Psych: no agitation Neurological: awake, alert, not oriented x 3 - Constitutional Vitals: Vital Signs Temp Pulse Resp BP Pulse Ox 98.6 F 88 31 H 111/67 97 04/18/19 12:00 04/18/19 13:00 04/18/19 11:00 04/18/19 13:00 04/18/19 13:00 Temperature -Last 24 Hours Temperature 98.6 F Temperature 98.5 F Temperature 98.4 F Temperature 97.5 F Temperature 102.6 F Temperature 97.5 F - Labs CBC & Chem 7: 04/18/19 04:41 04/18/19 04:41 Labs: Abnormal lab results 04/17/19 04/18/19 04/18/19 Range/Units 12:49 00:23 04:41 WBC (4.5-11.0) K/mm3 RBC (3.65-5.03) M/mm3 Hgb (11.8-15.2) gm/dl Hct (35.5-45.6) % MCHC (32-34) % RDW (13.2-15.2) % Sodium 152 H (137-145) mmol/L Potassium 3.0 L (3.6-5.0) mmol/L BUN 80 H (9-20) mg/dL Creatinine 4.3 H (0.8-1.5) mg/dL Glucose 103 H (75-100) mg/dL POC Glucose 108 H 115 H (70-105) Calcium 11.4 H (8.4-10.2) mg/dL 04/18/19 04/18/19 Range/Units 04:41 06:17 WBC 19.4 H (4.5-11.0) K/mm3 RBC 3.03 L (3.65-5.03) M/mm3 Hgb 8.6 L (11.8-15.2) gm/dl Hct 27.5 L (35.5-45.6) % MCHC 31 L (32-34) % RDW 16.9 H (13.2-15.2) % Sodium (137-145) mmol/L Potassium (3.6-5.0) mmol/L BUN (9-20) mg/dL Creatinine (0.8-1.5) mg/dL Glucose (75-100) mg/dL POC Glucose 124 H (70-105) Calcium (8.4-10.2) mg/dL
--- NOTE | 2019-04-18 14:43 | Progress Note ---
Assessment and Plan Patient is a 43 y/o man w/ a history of psychiatric illness (unknown which psychiatric diagnosis he has been given in the past), who presented on 03/16/19 with altered mental status. During the course of admission, patient was found to have sepsis with septic shock, rhabdomyolysis, RUBEN, and multiorgan failure. According to the patient's clinical findings, the patient likely has toxic metabolic encephalopathy. In support of this diagnosis, during this admission the patient has had multiple metabolic derangements including multiorgan fa ilure, sepsis, septic shock requiring pressor support, RUEBN, rhabdomyolysis. Plan: 1. Metabolic encephalopathy: - Likely due to multiple underlying metabolic derangements, as well as infections. - Mental status improved since admission. - Patient on antibiotics per ID. - Continue supportive care per ICU/primary/ID teams. - Discussed at length with patient's brother regarding current neurologic status, altered mental status due to metabolic abnormalities. -Will continue to monitor the patient's neurologic status.. Thank you for allowing me to take part in the care of this patient. Nahid Carroll MD Neurology Subjective Date of service: 04/18/19 Principal diagnosis: anemia - neck DVT Interval history: Patient febrile overnight. Objective - Exam Narrative Exam: Patient is awake, alert, oriented to self and year, minus month, date. Following 2-step commands. PERRL, EOMI, no facial weakness noted, tongue midline, visual argueta full, bilaterally intact to light touch. Bilaterally intact light touch in all extremities.. 2+ reflexes throughout. No dysarthria or aphasia noted. 2/5 strength in bilateral upper extremities, 2/5 strength in bilateral lower extremities. - Vital Sign Vital Signs - 12hr 04/18/19 04/18/19 04/18/19 03:01 04:00 05:00 Temperature 98.4 F Pulse Rate 98 H 97 H 96 H Respiratory 11 L 19 36 H Rate Blood Pressure 111/66 114/65 121/63 O2 Sat by Pulse 98 98 99 Oximetry 04/18/19 04/18/19 04/18/19 06:00 07:00 08:00 Temperature 98.5 F Pulse Rate 96 H 95 H 94 H Respiratory 21 29 H 23 Rate Blood Pressure 123/67 123/71 114/80 O2 Sat by Pulse 100 98 99 Oximetry 04/18/19 04/18/19 04/18/19 08:08 08:59 09:00 Temperature Pulse Rate 93 H 81 Respiratory 35 H Rate Blood Pressure 114/80 121/61 O2 Sat by Pulse 98 98 Oximetry 04/18/19 04/18/19 04/18/19 10:00 11:00 12:00 Temperature 98.6 F Pulse Rate 85 85 87 Respiratory 30 H 31 H Rate Blood Pressure 123/64 117/66 127/62 O2 Sat by Pulse 99 97 98 Oximetry 04/18/19 04/18/19 04/18/19 13:00 14:01 14:37 Temperature Pulse Rate 88 90 98 H Respiratory Rate Blood Pressure 111/67 111/67 118/68 O2 Sat by Pulse 97 97 Oximetry - General Apperance Constitutional: comfortable - EENT EENT: ATNC, PERRL, mucous membranes moist, hearing intact, vision intact - Respiratory Respiratory: decreased breath sounds - Cardiovascular Cardiovascular: regular rate, normal S1, normal S2 Extremities: no clubbing, cyanosis, no inflammation - Gastrointestinal Gastrointestinal: normoactive bowel sounds, soft, non-tender - Psychiatric Psychiatric: mood/affect appropriate - Laboratory Findings CBC and BMP: 04/18/19 04:41 04/18/19 04:41 Abnormal Lab Findings: Abnormal Labs 03/16/19 03/16/19 03/16/19 15:32 16:03 16:05 WBC 27.0 H RBC 5.55 H Hgb 15.7 H Hct 47.1 H MCV MCHC RDW Plt Count 75 L Lymph % (Auto) [place] % (Auto) Lymph # [place] # Seg Neutrophils % Seg Neuts % (Manual) 85.0 H Lymphocytes % (Manual) 2.0 L Monocytes % (Manual) Nucleated RBC % Seg Neutrophils # Seg Neutrophils # Man 23.0 H Lymphocytes # (Manual) 0.5 L Monocytes # (Manual) PT INR D-Dimer Heparin Anti-Xa Level POC ABG pH ABG pH POC ABG pCO2 POC ABG pO2 ABG pO2 ABG HCO3 ABG O2 Saturation ABG Base Excess ABG Hemoglobin Oxyhemoglobin Sodium 127 L Potassium Chloride 87.8 L Carbon Dioxide 17 L BUN 49 H Creatinine 5.8 H Glucose 150 H POC Glucose 118 H Lactic Acid Calcium 6.6 L Ionized Calcium Phosphorus Magnesium 1.10 L Iron TIBC Ferritin Total Bilirubin Direct Bilirubin AST ALT Alkaline Phosphatase Total Creatine Kinase 40543 H CK-MB (CK-2) Troponin T C-Reactive Protein Total Protein Albumin Triglycerides LDL Cholesterol Direct HDL Cholesterol Free T4 PTH Intact Urine WBC (Auto) Urine Creatinine Salicylates Acetaminophen Crossmatch 03/16/19 03/16/19 03/16/19 16:59 17:05 17:05 WBC RBC Hgb Hct MCV MCHC RDW Plt Count Lymph % (Auto) [place] % (Auto) Lymph # [place] # Seg Neutrophils % Seg Neuts % (Manual) Lymphocytes % (Manual) Monocytes % (Manual) Nucleated RBC % Seg Neutrophils # Seg Neutrophils # Man Lymphocytes # (Manual) Monocytes # (Manual) PT INR D-Dimer Heparin Anti-Xa Level POC ABG pH 7.297 L ABG pH POC ABG pCO2 33.0 L POC ABG pO2 ABG pO2 ABG HCO3 ABG O2 Saturation ABG Base Excess ABG Hemoglobin Oxyhemoglobin Sodium Potassium Chloride Carbon Dioxide BUN Creatinine Glucose POC Glucose Lactic Acid Calcium Ionized Calcium Phosphorus Magnesium Iron TIBC Ferritin Total Bilirubin Direct Bilirubin AST ALT Alkaline Phosphatase Total Creatine Kinase 47483 H CK-MB (CK-2) 83.1 H Troponin T C-Reactive Protein Total Protein Albumin Triglycerides LDL Cholesterol Direct HDL Cholesterol Free T4 0.72 L PTH Intact Urine WBC (Auto) Urine Creatinine Salicylates Acetaminophen Crossmatch 03/16/19 03/16/19 03/16/19 17:05 17:05 17:05 WBC RBC Hgb Hct MCV MCHC RDW Plt Count Lymph % (Auto) [place] % (Auto) Lymph # [place] # Seg Neutrophils % Seg Neuts % (Manual) Lymphocytes % (Manual) Monocytes % (Manual) Nucleated RBC % Seg Neutrophils # Seg Neutrophils # Man Lymphocytes # (Manual) Monocytes # (Manual) PT INR D-Dimer Heparin Anti-Xa Level POC ABG pH ABG pH POC ABG pCO2 POC ABG pO2 ABG pO2 ABG HCO3 ABG O2 Saturation ABG Base Excess ABG Hemoglobin Oxyhemoglobin Sodium Potassium Chloride Carbon Dioxide BUN Creatinine Glucose POC Glucose Lactic Acid 5.10 H* Calcium Ionized Calcium Phosphorus Magnesium Iron TIBC Ferritin Total Bilirubin Direct Bilirubin AST ALT Alkaline Phosphatase Total Creatine Kinase CK-MB (CK-2) Troponin T C-Reactive Protein Total Protein Albumin Triglycerides LDL Cholesterol Direct HDL Cholesterol Free T4 PTH Intact Urine WBC (Auto) Urine Creatinine Salicylates < 0.3 L Acetaminophen < 5.0 L Crossmatch 03/16/19 03/16/19 03/16/19 17:05 17:05 20:35 WBC RBC Hgb Hct MCV MCHC RDW Plt Count Lymph % (Auto) [place] % (Auto) Lymph # [place] # Seg Neutrophils % Seg Neuts % (Manual) Lymphocytes % (Manual) Monocytes % (Manual) Nucleated RBC % Seg Neutrophils # Seg Neutrophils # Man Lymphocytes # (Manual) Monocytes # (Manual) PT 15.9 H INR 1.30 H D-Dimer Heparin Anti-Xa Level POC ABG pH ABG pH POC ABG pCO2 POC ABG pO2 ABG pO2 ABG HCO3 ABG O2 Saturation ABG Base Excess ABG Hemoglobin Oxyhemoglobin Sodium Potassium Chloride Carbon Dioxide BUN Creatinine Glucose POC Glucose Lactic Acid 3.30 H* Calcium Ionized Calcium Phosphorus Magnesium Iron TIBC Ferritin Total Bilirubin 6.20 H Direct Bilirubin 5.9 H AST 800 H ALT 120 H Alkaline Phosphatase Total Creatine Kinase CK-MB (CK-2) Troponin T C-Reactive Protein Total Protein 4.4 L Albumin 2.4 L Triglycerides LDL Cholesterol Direct HDL Cholesterol Free T4 PTH Intact Urine WBC (Auto) Urine Creatinine Salicylates Acetaminophen Crossmatch 03/16/19 03/16/19 03/16/19 21:45 22:32 Unknown WBC RBC Hgb Hct MCV MCHC RDW Plt Count Lymph % (Auto) [place] % (Auto) Lymph # [place] # Seg Neutrophils % Seg Neuts % (Manual) Lymphocytes % (Manual) Monocytes % (Manual) Nucleated RBC % Seg Neutrophils # Seg Neutrophils # Man Lymphocytes # (Manual) Monocytes # (Manual) PT INR D-Dimer Heparin Anti-Xa Level POC ABG pH ABG pH POC ABG pCO2 POC ABG pO2 ABG pO2 ABG HCO3 ABG O2 Saturation ABG Base Excess ABG Hemoglobin Oxyhemoglobin Sodium Potassium Chloride Carbon Dioxide BUN Creatinine Glucose POC Glucose Lactic Acid 3.30 H* 3.00 H* Calcium Ionized Calcium Phosphorus Magnesium Iron TIBC Ferritin Total Bilirubin Direct Bilirubin AST ALT Alkaline Phosphatase Total Creatine Kinase CK-MB (CK-2) Troponin T 0.047 H D C-Reactive Protein Total Protein Albumin Triglycerides 395 H LDL Cholesterol Direct 10 L HDL Cholesterol 7 L Free T4 PTH Intact Urine WBC (Auto) Urine Creatinine Salicylates Acetaminophen Crossmatch 03/17/19 03/17/19 03/17/19 03:45 03:45 03:45 WBC RBC Hgb Hct MCV MCHC RDW Plt Count Lymph % (Auto) [place] % (Auto) Lymph # [place] # Seg Neutrophils % Seg Neuts % (Manual) Lymphocytes % (Manual) Monocytes % (Manual) Nucleated RBC % Seg Neutrophils # Seg Neutrophils # Man Lymphocytes # (Manual) Monocytes # (Manual) PT INR D-Dimer Heparin Anti-Xa Level POC ABG pH ABG pH POC ABG pCO2 POC ABG pO2 ABG pO2 ABG HCO3 ABG O2 Saturation ABG Base Excess ABG Hemoglobin Oxyhemoglobin Sodium 131 L Potassium Chloride 88.9 L Carbon Dioxide BUN 53 H Creatinine 7.1 H Glucose POC Glucose Lactic Acid 4.10 H* Calcium 5.4 L* D Ionized Calcium Phosphorus 7.30 H Magnesium 1.60 L Iron TIBC Ferritin Total Bilirubin 5.90 H Direct Bilirubin AST 801 H ALT 109 H Alkaline Phosphatase Total Creatine Kinase 99434 H 20476 H CK-MB (CK-2) 41.5 H Troponin T 0.054 H C-Reactive Protein Total Protein 4.5 L Albumin 2.0 L Triglycerides LDL Cholesterol Direct HDL Cholesterol Free T4 PTH Intact Urine WBC (Auto) Urine Creatinine Salicylates Acetaminophen Crossmatch 03/17/19 03/17/19 03/17/19 05:47 07:16 07:16 WBC RBC Hgb Hct MCV MCHC RDW Plt Count Lymph % (Auto) [place] % (Auto) Lymph # [place] # Seg Neutrophils % Seg Neuts % (Manual) Lymphocytes % (Manual) Monocytes % (Manual) Nucleated RBC % Seg Neutrophils # Seg Neutrophils # Man Lymphocytes # (Manual) Monocytes # (Manual) PT INR D-Dimer Heparin Anti-Xa Level POC ABG pH 7.193 L ABG pH POC ABG pCO2 45.2 H POC ABG pO2 65 L ABG pO2 ABG HCO3 ABG O2 Saturation ABG Base Excess ABG Hemoglobin Oxyhemoglobin Sodium Potassium Chloride Carbon Dioxide BUN Creatinine Glucose POC Glucose Lactic Acid 5.50 H* Calcium Ionized Calcium Phosphorus Magnesium Iron TIBC Ferritin Total Bilirubin Direct Bilirubin AST ALT Alkaline Phosphatase Total Creatine Kinase 45884 H CK-MB (CK-2) 54.3 H Troponin T 0.058 H C-Reactive Protein Total Protein Albumin Triglycerides LDL Cholesterol Direct HDL Cholesterol Free T4 PTH Intact Urine WBC (Auto) Urine Creatinine Salicylates Acetaminophen Crossmatch 03/17/19 03/17/19 03/17/19 11:52 12:51 13:01 WBC RBC Hgb Hct MCV MCHC RDW Plt Count Lymph % (Auto) [place] % (Auto) Lymph # [place] # Seg Neutrophils % Seg Neuts % (Manual) Lymphocytes % (Manual) Monocytes % (Manual) Nucleated RBC % Seg Neutrophils # Seg Neutrophils # Man Lymphocytes # (Manual) Monocytes # (Manual) PT INR D-Dimer Heparin Anti-Xa Level POC ABG pH 7.154 L ABG pH POC ABG pCO2 34.3 L POC ABG pO2 73 L ABG pO2 ABG HCO3 ABG O2 Saturation ABG Base Excess ABG Hemoglobin Oxyhemoglobin Sodium Potassium Chloride Carbon Dioxide BUN Creatinine Glucose POC Glucose 60 L Lactic Acid 8.20 H* Calcium Ionized Calcium Phosphorus Magnesium Iron TIBC Ferritin Total Bilirubin Direct Bilirubin AST ALT Alkaline Phosphatase Total Creatine Kinase CK-MB (CK-2) Troponin T C-Reactive Protein Total Protein Albumin Triglycerides LDL Cholesterol Direct HDL Cholesterol Free T4 PTH Intact Urine WBC (Auto) Urine Creatinine Salicylates Acetaminophen Crossmatch 03/17/19 03/17/19 03/17/19 14:37 14:37 14:37 WBC 29.3 H RBC Hgb Hct MCV MCHC RDW 15.8 H Plt Count 45 L Lymph % (Auto) [place] % (Auto) Lymph # [place] # Seg Neutrophils % Seg Neuts % (Manual) 81.0 H Lymphocytes % (Manual) 1.0 L Monocytes % (Manual) 15.0 H Nucleated RBC % Seg Neutrophils # Seg Neutrophils # Man 23.7 H Lymphocytes # (Manual) 0.3 L Monocytes # (Manual) 4.4 H PT INR D-Dimer Heparin Anti-Xa Level POC ABG pH ABG pH POC ABG pCO2 POC ABG pO2 ABG pO2 ABG HCO3 ABG O2 Saturation ABG Base Excess ABG Hemoglobin Oxyhemoglobin Sodium Potassium Chloride Carbon Dioxide BUN Creatinine Glucose POC Glucose Lactic Acid 4.90 H* Calcium Ionized Calcium Phosphorus Magnesium Iron TIBC Ferritin Total Bilirubin Direct Bilirubin AST ALT Alkaline Phosphatase Total Creatine Kinase CK-MB (CK-2) Troponin T C-Reactive Protein 24.90 H Total Protein Albumin Triglycerides LDL Cholesterol Direct HDL Cholesterol Free T4 PTH Intact Urine WBC (Auto) Urine Creatinine Salicylates Acetaminophen Crossmatch 03/17/19 03/17/19 03/17/19 16:05 16:05 17:02 WBC RBC Hgb Hct MCV MCHC RDW Plt Count Lymph % (Auto) [place] % (Auto) Lymph # [place] # Seg Neutrophils % Seg Neuts % (Manual) Lymphocytes % (Manual) Monocytes % (Manual) Nucleated RBC % Seg Neutrophils # Seg Neutrophils # Man Lymphocytes # (Manual) Monocytes # (Manual) PT INR D-Dimer Heparin Anti-Xa Level POC ABG pH 7.183 L ABG pH POC ABG pCO2 POC ABG pO2 65 L ABG pO2 ABG HCO3 ABG O2 Saturation ABG Base Excess ABG Hemoglobin Oxyhemoglobin Sodium Potassium Chloride Carbon Dioxide BUN Creatinine Glucose POC Glucose Lactic Acid Calcium Ionized Calcium Phosphorus Magnesium Iron TIBC Ferritin Total Bilirubin Direct Bilirubin AST ALT Alkaline Phosphatase Total Creatine Kinase CK-MB (CK-2) Troponin T C-Reactive Protein Total Protein Albumin Triglycerides LDL Cholesterol Direct HDL Cholesterol Free T4 PTH Intact Urine WBC (Auto) 30.0 H Urine Creatinine 106.6 H Salicylates Acetaminophen Crossmatch 03/18/19 03/18/19 03/18/19 05:12 05:16 05:53 WBC RBC Hgb Hct MCV MCHC RDW Plt Count Lymph % (Auto) [place] % (Auto) Lymph # [place] # Seg Neutrophils % Seg Neuts % (Manual) Lymphocytes % (Manual) Monocytes % (Manual) Nucleated RBC % Seg Neutrophils # Seg Neutrophils # Man Lymphocytes # (Manual) Monocytes # (Manual) PT INR D-Dimer Heparin Anti-Xa Level POC ABG pH 7.257 L ABG pH POC ABG pCO2 31.6 L POC ABG pO2 69 L ABG pO2 ABG HCO3 ABG O2 Saturation ABG Base Excess ABG Hemoglobin Oxyhemoglobin Sodium Potassium Chloride Carbon Dioxide BUN Creatinine Glucose POC Glucose 141 H Lactic Acid 5.00 H* Calcium Ionized Calcium Phosphorus Magnesium Iron TIBC Ferritin Total Bilirubin Direct Bilirubin AST ALT Alkaline Phosphatase Total Creatine Kinase CK-MB (CK-2) Troponin T C-Reactive Protein Total Protein Albumin Triglycerides LDL Cholesterol Direct HDL Cholesterol Free T4 PTH Intact Urine WBC (Auto) Urine Creatinine Salicylates Acetaminophen Crossmatch 03/18/19 03/18/19 03/18/19 06:57 08:40 08:40 WBC 31.7 H RBC Hgb Hct MCV MCHC RDW 15.5 H Plt Count 35 L Lymph % (Auto) [place] % (Auto) Lymph # [place] # Seg Neutrophils % Seg Neuts % (Manual) Lymphocytes % (Manual) Monocytes % (Manual) Nucleated RBC % Seg Neutrophils # Seg Neutrophils # Man Lymphocytes # (Manual) Monocytes # (Manual) PT INR D-Dimer Heparin Anti-Xa Level POC ABG pH ABG pH POC ABG pCO2 POC ABG pO2 ABG pO2 ABG HCO3 ABG O2 Saturation ABG Base Excess ABG Hemoglobin Oxyhemoglobin Sodium 132 L Potassium 5.5 H D Chloride 88.5 L Carbon Dioxide 18 L BUN 71 H Creatinine 8.1 H Glucose 205 H POC Glucose Lactic Acid 5.00 H* Calcium 4.1 L* D Ionized Calcium Phosphorus Magnesium 2.40 H Iron TIBC Ferritin Total Bilirubin 7.50 H Direct Bilirubin AST 1088 H ALT 159 H Alkaline Phosphatase 190 H Total Creatine Kinase 488563 H CK-MB (CK-2) Troponin T C-Reactive Protein Total Protein 4.7 L Albumin 1.8 L Triglycerides LDL Cholesterol Direct HDL Cholesterol Free T4 PTH Intact Urine WBC (Auto) Urine Creatinine Salicylates Acetaminophen Crossmatch 03/18/19 03/18/19 03/18/19 12:33 12:50 13:19 WBC RBC Hgb Hct MCV MCHC RDW Plt Count Lymph % (Auto) [place] % (Auto) Lymph # [place] # Seg Neutrophils % Seg Neuts % (Manual) Lymphocytes % (Manual) Monocytes % (Manual) Nucleated RBC % Seg Neutrophils # Seg Neutrophils # Man Lymphocytes # (Manual) Monocytes # (Manual) PT INR D-Dimer Heparin Anti-Xa Level POC ABG pH 7.282 L ABG pH POC ABG pCO2 POC ABG pO2 67 L ABG pO2 ABG HCO3 ABG O2 Saturation ABG Base Excess ABG Hemoglobin Oxyhemoglobin Sodium Potassium Chloride Carbon Dioxide BUN Creatinine Glucose POC Glucose 129 H Lactic Acid 3.30 H* Calcium Ionized Calcium Phosphorus Magnesium Iron TIBC Ferritin Total Bilirubin Direct Bilirubin AST ALT Alkaline Phosphatase Total Creatine Kinase CK-MB (CK-2) Troponin T C-Reactive Protein Total Protein Albumin Triglycerides LDL Cholesterol Direct HDL Cholesterol Free T4 PTH Intact Urine WBC (Auto) Urine Creatinine Salicylates Acetaminophen Crossmatch 03/18/19 03/18/19 03/18/19 13:19 16:50 18:11 WBC RBC Hgb Hct MCV MCHC RDW Plt Count Lymph % (Auto) [place] % (Auto) Lymph # [place] # Seg Neutrophils % Seg Neuts % (Manual) Lymphocytes % (Manual) Monocytes % (Manual) Nucleated RBC % Seg Neutrophils # Seg Neutrophils # Man Lymphocytes # (Manual) Monocytes # (Manual) PT INR D-Dimer Heparin Anti-Xa Level POC ABG pH ABG pH POC ABG pCO2 POC ABG pO2 59 L ABG pO2 ABG HCO3 ABG O2 Saturation ABG Base Excess ABG Hemoglobin Oxyhemoglobin Sodium Potassium Chloride Carbon Dioxide BUN Creatinine Glucose POC Glucose 151 H Lactic Acid Calcium 4.2 L* Ionized Calcium Phosphorus Magnesium Iron TIBC Ferritin Total Bilirubin Direct Bilirubin AST ALT Alkaline Phosphatase Total Creatine Kinase 612737 H CK-MB (CK-2) Troponin T C-Reactive Protein Total Protein Albumin Triglycerides LDL Cholesterol Direct HDL Cholesterol Free T4 PTH Intact Urine WBC (Auto) Urine Creatinine Salicylates Acetaminophen Crossmatch 03/18/19 03/18/19 03/19/19 18:20 23:39 01:42 WBC RBC Hgb Hct MCV MCHC RDW Plt Count Lymph % (Auto) [place] % (Auto) Lymph # [place] # Seg Neutrophils % Seg Neuts % (Manual) Lymphocytes % (Manual) Monocytes % (Manual) Nucleated RBC % Seg Neutrophils # Seg Neutrophils # Man Lymphocytes # (Manual) Monocytes # (Manual) PT INR D-Dimer Heparin Anti-Xa Level POC ABG pH 7.345 L ABG pH 7.285 L POC ABG pCO2 POC ABG pO2 59 L ABG pO2 44.0 L ABG HCO3 ABG O2 Saturation 70.9 L ABG Base Excess -5.7 L ABG Hemoglobin 11.9 L Oxyhemoglobin 69.6 L Sodium Potassium Chloride Carbon Dioxide BUN Creatinine Glucose POC Glucose 152 H Lactic Acid Calcium Ionized Calcium Phosphorus Magnesium Iron TIBC Ferritin Total Bilirubin Direct Bilirubin AST ALT Alkaline Phosphatase Total Creatine Kinase CK-MB (CK-2) Troponin T C-Reactive Protein Total Protein Albumin Triglycerides LDL Cholesterol Direct HDL Cholesterol Free T4 PTH Intact Urine WBC (Auto) Urine Creatinine Salicylates Acetaminophen Crossmatch 03/19/19 03/19/19 03/19/19 04:00 04:00 05:35 WBC 36.5 H RBC Hgb Hct MCV MCHC RDW 15.8 H Plt Count 35 L Lymph % (Auto) [place] % (Auto) Lymph # [place] # Seg Neutrophils % Seg Neuts % (Manual) Lymphocytes % (Manual) Monocytes % (Manual) Nucleated RBC % Seg Neutrophils # Seg Neutrophils # Man Lymphocytes # (Manual) Monocytes # (Manual) PT INR D-Dimer Heparin Anti-Xa Level POC ABG pH ABG pH 7.265 L POC ABG pCO2 POC ABG pO2 ABG pO2 35.4 L* ABG HCO3 ABG O2 Saturation 54.4 L ABG Base Excess -6.7 L ABG Hemoglobin 12.9 L Oxyhemoglobin 53.4 L Sodium 132 L Potassium 5.7 H Chloride 89.8 L Carbon Dioxide 19 L BUN 62 H Creatinine 6.4 H Glucose 151 H POC Glucose Lactic Acid Calcium 5.2 L* D Ionized Calcium Phosphorus Magnesium Iron TIBC Ferritin Total Bilirubin 7.80 H Direct Bilirubin AST 682 H ALT 130 H Alkaline Phosphatase 167 H Total Creatine Kinase CK-MB (CK-2) Troponin T C-Reactive Protein Total Protein 4.8 L Albumin 2.3 L Triglycerides LDL Cholesterol Direct HDL Cholesterol Free T4 PTH Intact Urine WBC (Auto) Urine Creatinine Salicylates Acetaminophen Crossmatch 03/19/19 03/19/19 03/19/19 05:49 09:16 09:50 WBC RBC Hgb Hct MCV MCHC RDW Plt Count Lymph % (Auto) [place] % (Auto) Lymph # [place] # Seg Neutrophils % Seg Neuts % (Manual) Lymphocytes % (Manual) Monocytes % (Manual) Nucleated RBC % Seg Neutrophils # Seg Neutrophils # Man Lymphocytes # (Manual) Monocytes # (Manual) PT INR D-Dimer Heparin Anti-Xa Level POC ABG pH 7.222 L ABG pH POC ABG pCO2 56.6 H POC ABG pO2 ABG pO2 ABG HCO3 ABG O2 Saturation ABG Base Excess ABG Hemoglobin Oxyhemoglobin Sodium Potassium Chloride Carbon Dioxide BUN Creatinine Glucose POC Glucose 154 H Lactic Acid 2.70 H* Calcium Ionized Calcium Phosphorus Magnesium Iron TIBC Ferritin Total Bilirubin Direct Bilirubin AST ALT Alkaline Phosphatase Total Creatine Kinase CK-MB (CK-2) Troponin T C-Reactive Protein Total Protein Albumin Triglycerides LDL Cholesterol Direct HDL Cholesterol Free T4 PTH Intact Urine WBC (Auto) Urine Creatinine Salicylates Acetaminophen Crossmatch 03/19/19 03/19/19 03/19/19 09:50 11:28 17:58 WBC RBC Hgb Hct MCV MCHC RDW Plt Count Lymph % (Auto) [place] % (Auto) Lymph # [place] # Seg Neutrophils % Seg Neuts % (Manual) Lymphocytes % (Manual) Monocytes % (Manual) Nucleated RBC % Seg Neutrophils # Seg Neutrophils # Man Lymphocytes # (Manual) Monocytes # (Manual) PT INR D-Dimer Heparin Anti-Xa Level POC ABG pH 7.250 L ABG pH POC ABG pCO2 52.6 H POC ABG pO2 ABG pO2 ABG HCO3 ABG O2 Saturation ABG Base Excess ABG Hemoglobin Oxyhemoglobin Sodium Potassium Chloride Carbon Dioxide BUN Creatinine Glucose POC Glucose 160 H Lactic Acid Calcium Ionized Calcium Phosphorus Magnesium Iron TIBC Ferritin Total Bilirubin Direct Bilirubin AST ALT Alkaline Phosphatase Total Creatine Kinase 99163 H CK-MB (CK-2) Troponin T C-Reactive Protein Total Protein Albumin Triglycerides LDL Cholesterol Direct HDL Cholesterol Free T4 PTH Intact Urine WBC (Auto) Urine Creatinine Salicylates Acetaminophen Crossmatch 03/19/19 03/19/19 03/20/19 19:48 21:03 02:16 WBC RBC Hgb Hct MCV MCHC RDW Plt Count Lymph % (Auto) [place] % (Auto) Lymph # [place] # Seg Neutrophils % Seg Neuts % (Manual) Lymphocytes % (Manual) Monocytes % (Manual) Nucleated RBC % Seg Neutrophils # Seg Neutrophils # Man Lymphocytes # (Manual) Monocytes # (Manual) PT INR D-Dimer Heparin Anti-Xa Level POC ABG pH 7.279 L ABG pH POC ABG pCO2 50.3 H POC ABG pO2 129 H ABG pO2 ABG HCO3 ABG O2 Saturation ABG Base Excess ABG Hemoglobin Oxyhemoglobin Sodium Potassium Chloride Carbon Dioxide BUN Creatinine Glucose POC Glucose 119 H 119 H Lactic Acid Calcium Ionized Calcium Phosphorus Magnesium Iron TIBC Ferritin Total Bilirubin Direct Bilirubin AST ALT Alkaline Phosphatase Total Creatine Kinase CK-MB (CK-2) Troponin T C-Reactive Protein Total Protein Albumin Triglycerides LDL Cholesterol Direct HDL Cholesterol Free T4 PTH Intact Urine WBC (Auto) Urine Creatinine Salicylates Acetaminophen Crossmatch 03/20/19 03/20/19 03/20/19 04:23 05:05 09:30 WBC 36.3 H RBC Hgb Hct MCV MCHC RDW 15.5 H Plt Count 29 L Lymph % (Auto) [place] % (Auto) Lymph # [place] # Seg Neutrophils % Seg Neuts % (Manual) Lymphocytes % (Manual) Monocytes % (Manual) Nucleated RBC % Seg Neutrophils # Seg Neutrophils # Man Lymphocytes # (Manual) Monocytes # (Manual) PT INR D-Dimer Heparin Anti-Xa Level POC ABG pH ABG pH POC ABG pCO2 POC ABG pO2 280 H ABG pO2 ABG HCO3 ABG O2 Saturation ABG Base Excess ABG Hemoglobin Oxyhemoglobin Sodium Potassium Chloride Carbon Dioxide BUN Creatinine Glucose POC Glucose 115 H Lactic Acid Calcium Ionized Calcium Phosphorus Magnesium Iron TIBC Ferritin Total Bilirubin Direct Bilirubin AST ALT Alkaline Phosphatase Total Creatine Kinase CK-MB (CK-2) Troponin T C-Reactive Protein Total Protein Albumin Triglycerides LDL Cholesterol Direct HDL Cholesterol Free T4 PTH Intact Urine WBC (Auto) Urine Creatinine Salicylates Acetaminophen Crossmatch 03/20/19 03/20/19 03/20/19 09:30 09:30 11:34 WBC RBC Hgb Hct MCV MCHC RDW Plt Count Lymph % (Auto) [place] % (Auto) Lymph # [place] # Seg Neutrophils % Seg Neuts % (Manual) Lymphocytes % (Manual) Monocytes % (Manual) Nucleated RBC % Seg Neutrophils # Seg Neutrophils # Man Lymphocytes # (Manual) Monocytes # (Manual) PT INR D-Dimer Heparin Anti-Xa Level POC ABG pH ABG pH POC ABG pCO2 POC ABG pO2 ABG pO2 ABG HCO3 ABG O2 Saturation ABG Base Excess ABG Hemoglobin Oxyhemoglobin Sodium 131 L Potassium Chloride 92.3 L Carbon Dioxide 20 L BUN 68 H Creatinine 6.1 H Glucose 164 H POC Glucose 141 H Lactic Acid Calcium 5.3 L* Ionized Calcium Phosphorus Magnesium Iron TIBC Ferritin Total Bilirubin 9.50 H Direct Bilirubin AST 381 H ALT 116 H Alkaline Phosphatase 255 H Total Creatine Kinase 91891 H CK-MB (CK-2) Troponin T C-Reactive Protein Total Protein 5.1 L Albumin 2.3 L Triglycerides LDL Cholesterol Direct HDL Cholesterol Free T4 PTH Intact Urine WBC (Auto) Urine Creatinine Salicylates Acetaminophen Crossmatch 03/20/19 03/20/19 03/20/19 14:41 14:45 18:50 WBC RBC Hgb Hct MCV MCHC RDW Plt Count Lymph % (Auto) [place] % (Auto) Lymph # [place] # Seg Neutrophils % Seg Neuts % (Manual) Lymphocytes % (Manual) Monocytes % (Manual) Nucleated RBC % Seg Neutrophils # Seg Neutrophils # Man Lymphocytes # (Manual) Monocytes # (Manual) PT INR D-Dimer Heparin Anti-Xa Level POC ABG pH ABG pH POC ABG pCO2 POC ABG pO2 ABG pO2 ABG HCO3 ABG O2 Saturation ABG Base Excess ABG Hemoglobin Oxyhemoglobin Sodium Potassium Chloride Carbon Dioxide BUN Creatinine Glucose POC Glucose 117 H Lactic Acid 2.90 H* Calcium Ionized Calcium Phosphorus Magnesium Iron TIBC Ferritin Total Bilirubin Direct Bilirubin AST ALT Alkaline Phosphatase Total Creatine Kinase CK-MB (CK-2) Troponin T C-Reactive Protein 13.30 H Total Protein Albumin Triglycerides LDL Cholesterol Direct HDL Cholesterol Free T4 PTH Intact Urine WBC (Auto) Urine Creatinine Salicylates Acetaminophen Crossmatch 03/20/19 03/21/19 03/21/19 21:55 04:26 04:26 WBC 37.8 H RBC Hgb Hct MCV MCHC RDW 15.4 H Plt Count 36 L Lymph % (Auto) [place] % (Auto) Lymph # [place] # Seg Neutrophils % Seg Neuts % (Manual) 93.0 H Lymphocytes % (Manual) 3.0 L Monocytes % (Manual) Nucleated RBC % 1.0 H Seg Neutrophils # 34.6 H Seg Neutrophils # Man 35.2 H Lymphocytes # (Manual) 1.1 L Monocytes # (Manual) PT INR D-Dimer Heparin Anti-Xa Level POC ABG pH ABG pH POC ABG pCO2 POC ABG pO2 ABG pO2 ABG HCO3 ABG O2 Saturation ABG Base Excess ABG Hemoglobin Oxyhemoglobin Sodium 131 L Potassium Chloride 90.7 L Carbon Dioxide 21 L BUN 69 H Creatinine 5.7 H Glucose 170 H POC Glucose 128 H Lactic Acid Calcium 6.1 L D Ionized Calcium Phosphorus Magnesium Iron TIBC Ferritin Total Bilirubin 9.50 H Direct Bilirubin AST 308 H ALT 124 H Alkaline Phosphatase 327 H Total Creatine Kinase 82025 H CK-MB (CK-2) Troponin T C-Reactive Protein Total Protein 5.7 L Albumin 2.6 L Triglycerides LDL Cholesterol Direct HDL Cholesterol Free T4 PTH Intact Urine WBC (Auto) Urine Creatinine Salicylates Acetaminophen Crossmatch 03/21/19 03/21/19 03/21/19 05:17 05:39 08:29 WBC RBC Hgb Hct MCV MCHC RDW Plt Count Lymph % (Auto) [place] % (Auto) Lymph # [place] # Seg Neutrophils % Seg Neuts % (Manual) Lymphocytes % (Manual) Monocytes % (Manual) Nucleated RBC % Seg Neutrophils # Seg Neutrophils # Man Lymphocytes # (Manual) Monocytes # (Manual) PT INR D-Dimer Heparin Anti-Xa Level POC ABG pH ABG pH POC ABG pCO2 POC ABG pO2 209 H ABG pO2 ABG HCO3 ABG O2 Saturation ABG Base Excess ABG Hemoglobin Oxyhemoglobin Sodium Potassium Chloride Carbon Dioxide BUN Creatinine Glucose POC Glucose 145 H Lactic Acid Calcium Ionized Calcium Phosphorus Magnesium Iron TIBC Ferritin Total Bilirubin Direct Bilirubin AST ALT Alkaline Phosphatase Total Creatine Kinase 71205 H CK-MB (CK-2) Troponin T C-Reactive Protein Total Protein Albumin Triglycerides LDL Cholesterol Direct HDL Cholesterol Free T4 PTH Intact Urine WBC (Auto) Urine Creatinine Salicylates Acetaminophen Crossmatch 03/21/19 03/21/19 03/21/19 08:29 11:43 12:00 WBC RBC Hgb Hct MCV MCHC RDW Plt Count Lymph % (Auto) [place] % (Auto) Lymph # [place] # Seg Neutrophils % Seg Neuts % (Manual) Lymphocytes % (Manual) Monocytes % (Manual) Nucleated RBC % Seg Neutrophils # Seg Neutrophils # Man Lymphocytes # (Manual) Monocytes # (Manual) PT INR D-Dimer Heparin Anti-Xa Level POC ABG pH ABG pH POC ABG pCO2 POC ABG pO2 ABG pO2 ABG HCO3 ABG O2 Saturation ABG Base Excess ABG Hemoglobin Oxyhemoglobin Sodium Potassium Chloride Carbon Dioxide BUN Creatinine Glucose POC Glucose 123 H Lactic Acid 2.60 H* 2.20 H* Calcium Ionized Calcium Phosphorus Magnesium Iron TIBC Ferritin Total Bilirubin Direct Bilirubin AST ALT Alkaline Phosphatase Total Creatine Kinase CK-MB (CK-2) Troponin T C-Reactive Protein Total Protein Albumin Triglycerides LDL Cholesterol Direct HDL Cholesterol Free T4 PTH Intact Urine WBC (Auto) Urine Creatinine Salicylates Acetaminophen Crossmatch 03/21/19 03/21/19 03/21/19 14:11 18:28 19:32 WBC RBC Hgb Hct MCV MCHC RDW Plt Count Lymph % (Auto) [place] % (Auto) Lymph # [place] # Seg Neutrophils % Seg Neuts % (Manual) Lymphocytes % (Manual) Monocytes % (Manual) Nucleated RBC % Seg Neutrophils # Seg Neutrophils # Man Lymphocytes # (Manual) Monocytes # (Manual) PT INR D-Dimer Heparin Anti-Xa Level POC ABG pH 7.293 L ABG pH POC ABG pCO2 POC ABG pO2 ABG pO2 ABG HCO3 ABG O2 Saturation ABG Base Excess ABG Hemoglobin Oxyhemoglobin Sodium Potassium Chloride Carbon Dioxide BUN Creatinine Glucose POC Glucose 153 H Lactic Acid 2.10 H* Calcium Ionized Calcium Phosphorus Magnesium Iron TIBC Ferritin Total Bilirubin Direct Bilirubin AST ALT Alkaline Phosphatase Total Creatine Kinase CK-MB (CK-2) Troponin T C-Reactive Protein Total Protein Albumin Triglycerides LDL Cholesterol Direct HDL Cholesterol Free T4 PTH Intact Urine WBC (Auto) Urine Creatinine Salicylates Acetaminophen Crossmatch 03/21/19 03/22/19 03/22/19 23:38 05:08 05:51 WBC RBC Hgb Hct MCV MCHC RDW Plt Count Lymph % (Auto) [place] % (Auto) Lymph # [place] # Seg Neutrophils % Seg Neuts % (Manual) Lymphocytes % (Manual) Monocytes % (Manual) Nucleated RBC % Seg Neutrophils # Seg Neutrophils # Man Lymphocytes # (Manual) Monocytes # (Manual) PT INR D-Dimer Heparin Anti-Xa Level POC ABG pH 7.283 L ABG pH POC ABG pCO2 POC ABG pO2 53 L ABG pO2 ABG HCO3 ABG O2 Saturation ABG Base Excess ABG Hemoglobin Oxyhemoglobin Sodium Potassium Chloride Carbon Dioxide BUN Creatinine Glucose POC Glucose 149 H 131 H Lactic Acid Calcium Ionized Calcium Phosphorus Magnesium Iron TIBC Ferritin Total Bilirubin Direct Bilirubin AST ALT Alkaline Phosphatase Total Creatine Kinase CK-MB (CK-2) Troponin T C-Reactive Protein Total Protein Albumin Triglycerides LDL Cholesterol Direct HDL Cholesterol Free T4 PTH Intact Urine WBC (Auto) Urine Creatinine Salicylates Acetaminophen Crossmatch 03/22/19 03/22/19 03/22/19 08:00 08:00 18:19 WBC 36.7 H RBC Hgb 11.0 L Hct 33.5 L MCV MCHC RDW 15.5 H Plt Count 43 L Lymph % (Auto) [place] % (Auto) Lymph # [place] # Seg Neutrophils % Seg Neuts % (Manual) 87.0 H Lymphocytes % (Manual) 7.0 L Monocytes % (Manual) Nucleated RBC % Seg Neutrophils # Seg Neutrophils # Man 31.9 H Lymphocytes # (Manual) Monocytes # (Manual) PT INR D-Dimer Heparin Anti-Xa Level POC ABG pH ABG pH POC ABG pCO2 46.4 H POC ABG pO2 108 H ABG pO2 ABG HCO3 ABG O2 Saturation ABG Base Excess ABG Hemoglobin Oxyhemoglobin Sodium 132 L Potassium 5.6 H Chloride 89.6 L Carbon Dioxide 20 L BUN 101 H Creatinine 7.4 H Glucose 124 H POC Glucose Lactic Acid Calcium 5.2 L* Ionized Calcium Phosphorus Magnesium Iron TIBC Ferritin Total Bilirubin 2.80 H Direct Bilirubin AST 119 H ALT 86 H Alkaline Phosphatase 245 H Total Creatine Kinase CK-MB (CK-2) Troponin T C-Reactive Protein Total Protein 5.6 L Albumin 2.5 L Triglycerides LDL Cholesterol Direct HDL Cholesterol Free T4 PTH Intact Urine WBC (Auto) Urine Creatinine Salicylates Acetaminophen Crossmatch 03/22/19 03/23/19 03/23/19 20:37 04:49 05:28 WBC 35.9 H RBC Hgb 10.8 L Hct 33.2 L MCV MCHC RDW 15.5 H Plt Count 49 L Lymph % (Auto) [place] % (Auto) Lymph # [place] # Seg Neutrophils % Seg Neuts % (Manual) 81.0 H Lymphocytes % (Manual) 3.5 L Monocytes % (Manual) Nucleated RBC % Seg Neutrophils # Seg Neutrophils # Man 29.1 H Lymphocytes # (Manual) Monocytes # (Manual) 1.4 H PT INR D-Dimer Heparin Anti-Xa Level POC ABG pH 7.296 L ABG pH POC ABG pCO2 46.2 H POC ABG pO2 ABG pO2 ABG HCO3 ABG O2 Saturation ABG Base Excess ABG Hemoglobin Oxyhemoglobin Sodium 129 L Potassium 5.2 H Chloride 91.1 L Carbon Dioxide BUN 91 H Creatinine 6.6 H Glucose 190 H POC Glucose Lactic Acid Calcium 5.3 L* Ionized Calcium Phosphorus Magnesium Iron TIBC Ferritin Total Bilirubin 1.80 H Direct Bilirubin AST 80 H ALT 62 H Alkaline Phosphatase 209 H Total Creatine Kinase 9758 H CK-MB (CK-2) Troponin T C-Reactive Protein Total Protein 5.2 L Albumin 2.2 L Triglycerides LDL Cholesterol Direct HDL Cholesterol Free T4 PTH Intact Urine WBC (Auto) Urine Creatinine Salicylates Acetaminophen Crossmatch 03/23/19 03/23/19 03/23/19 05:28 05:31 11:33 WBC 29.7 H RBC 3.59 L Hgb 10.1 L Hct 31.1 L MCV MCHC RDW 15.4 H Plt Count 47 L Lymph % (Auto) [place] % (Auto) Lymph # [place] # Seg Neutrophils % Seg Neuts % (Manual) 89.0 H Lymphocytes % (Manual) 6.0 L Monocytes % (Manual) Nucleated RBC % 1.0 H Seg Neutrophils # Seg Neutrophils # Man 26.4 H Lymphocytes # (Manual) Monocytes # (Manual) PT INR D-Dimer Heparin Anti-Xa Level POC ABG pH ABG pH POC ABG pCO2 POC ABG pO2 ABG pO2 ABG HCO3 ABG O2 Saturation ABG Base Excess ABG Hemoglobin Oxyhemoglobin Sodium Potassium Chloride Carbon Dioxide BUN Creatinine Glucose POC Glucose 122 H 113 H Lactic Acid Calcium Ionized Calcium Phosphorus Magnesium Iron TIBC Ferritin Total Bilirubin Direct Bilirubin AST ALT Alkaline Phosphatase Total Creatine Kinase CK-MB (CK-2) Troponin T C-Reactive Protein Total Protein Albumin Triglycerides LDL Cholesterol Direct HDL Cholesterol Free T4 PTH Intact Urine WBC (Auto) Urine Creatinine Salicylates Acetaminophen Crossmatch 03/23/19 03/24/19 03/24/19 17:47 00:00 04:50 WBC 35.0 H RBC Hgb 10.4 L Hct 32.4 L MCV MCHC RDW Plt Count 60 L Lymph % (Auto) [place] % (Auto) Lymph # [place] # Seg Neutrophils % Seg Neuts % (Manual) 93.0 H Lymphocytes % (Manual) 5.0 L Monocytes % (Manual) Nucleated RBC % 7.0 H Seg Neutrophils # Seg Neutrophils # Man 32.6 H Lymphocytes # (Manual) Monocytes # (Manual) PT INR D-Dimer Heparin Anti-Xa Level POC ABG pH ABG pH POC ABG pCO2 POC ABG pO2 ABG pO2 ABG HCO3 ABG O2 Saturation ABG Base Excess ABG Hemoglobin Oxyhemoglobin Sodium Potassium Chloride Carbon Dioxide BUN Creatinine Glucose POC Glucose 111 H 108 H Lactic Acid Calcium Ionized Calcium Phosphorus Magnesium Iron TIBC Ferritin Total Bilirubin Direct Bilirubin AST ALT Alkaline Phosphatase Total Creatine Kinase CK-MB (CK-2) Troponin T C-Reactive Protein Total Protein Albumin Triglycerides LDL Cholesterol Direct HDL Cholesterol Free T4 PTH Intact Urine WBC (Auto) Urine Creatinine Salicylates Acetaminophen Crossmatch 03/24/19 03/24/19 03/24/19 04:50 05:06 12:55 WBC RBC Hgb Hct MCV MCHC RDW Plt Count Lymph % (Auto) [place] % (Auto) Lymph # [place] # Seg Neutrophils % Seg Neuts % (Manual) Lymphocytes % (Manual) Monocytes % (Manual) Nucleated RBC % Seg Neutrophils # Seg Neutrophils # Man Lymphocytes # (Manual) Monocytes # (Manual) PT INR D-Dimer Heparin Anti-Xa Level POC ABG pH ABG pH POC ABG pCO2 POC ABG pO2 ABG pO2 ABG HCO3 ABG O2 Saturation ABG Base Excess ABG Hemoglobin Oxyhemoglobin Sodium 134 L Potassium 5.1 H Chloride 95.3 L Carbon Dioxide 21 L BUN 85 H Creatinine 6.4 H Glucose 109 H POC Glucose 112 H 110 H Lactic Acid Calcium 5.8 L* Ionized Calcium Phosphorus Magnesium Iron TIBC Ferritin Total Bilirubin Direct Bilirubin AST ALT Alkaline Phosphatase Total Creatine Kinase 5747 H CK-MB (CK-2) Troponin T C-Reactive Protein Total Protein Albumin Triglycerides LDL Cholesterol Direct HDL Cholesterol Free T4 PTH Intact Urine WBC (Auto) Urine Creatinine Salicylates Acetaminophen Crossmatch 03/24/19 03/25/19 03/25/19 23:29 05:00 05:00 WBC RBC Hgb Hct MCV MCHC RDW Plt Count Lymph % (Auto) [place] % (Auto) Lymph # [place] # Seg Neutrophils % Seg Neuts % (Manual) Lymphocytes % (Manual) Monocytes % (Manual) Nucleated RBC % Seg Neutrophils # Seg Neutrophils # Man Lymphocytes # (Manual) Monocytes # (Manual) PT INR D-Dimer Heparin Anti-Xa Level POC ABG pH ABG pH POC ABG pCO2 POC ABG pO2 ABG pO2 ABG HCO3 ABG O2 Saturation ABG Base Excess ABG Hemoglobin Oxyhemoglobin Sodium 133 L Potassium Chloride 94.0 L Carbon Dioxide 21 L BUN 81 H Creatinine 6.4 H Glucose POC Glucose 109 H Lactic Acid Calcium 5.5 L* Ionized Calcium Phosphorus Magnesium Iron TIBC Ferritin Total Bilirubin Direct Bilirubin AST 80 H ALT Alkaline Phosphatase 202 H Total Creatine Kinase 3589 H CK-MB (CK-2) Troponin T C-Reactive Protein Total Protein 5.3 L Albumin 2.4 L Triglycerides LDL Cholesterol Direct HDL Cholesterol Free T4 PTH Intact 329.9 H Urine WBC (Auto) Urine Creatinine Salicylates Acetaminophen Crossmatch 03/25/19 03/25/19 03/26/19 05:00 06:30 04:30 WBC 23.3 H RBC 3.61 L Hgb 10.2 L Hct 31.2 L MCV MCHC RDW Plt Count 57 L Lymph % (Auto) [place] % (Auto) Lymph # [place] # Seg Neutrophils % Seg Neuts % (Manual) 92.0 H Lymphocytes % (Manual) 6.0 L Monocytes % (Manual) Nucleated RBC % Seg Neutrophils # Seg Neutrophils # Man 21.4 H Lymphocytes # (Manual) Monocytes # (Manual) PT INR D-Dimer Heparin Anti-Xa Level POC ABG pH ABG pH 7.326 L POC ABG pCO2 POC ABG pO2 ABG pO2 109.5 H 137.4 H ABG HCO3 18.8 L 18.6 L ABG O2 Saturation ABG Base Excess -4.4 L -6.8 L ABG Hemoglobin 10.1 L 9.9 L Oxyhemoglobin Sodium Potassium Chloride Carbon Dioxide BUN Creatinine Glucose POC Glucose Lactic Acid Calcium Ionized Calcium Phosphorus Magnesium Iron TIBC Ferritin Total Bilirubin Direct Bilirubin AST ALT Alkaline Phosphatase Total Creatine Kinase CK-MB (CK-2) Troponin T C-Reactive Protein Total Protein Albumin Triglycerides LDL Cholesterol Direct HDL Cholesterol Free T4 PTH Intact Urine WBC (Auto) Urine Creatinine Salicylates Acetaminophen Crossmatch 03/26/19 03/26/19 03/26/19 23:22 Unknown Unknown WBC 19.5 H RBC 3.44 L Hgb 9.8 L Hct 29.9 L MCV MCHC RDW Plt Count 85 L Lymph % (Auto) [place] % (Auto) Lymph # [place] # Seg Neutrophils % Seg Neuts % (Manual) 95.0 H Lymphocytes % (Manual) 3.0 L Monocytes % (Manual) Nucleated RBC % Seg Neutrophils # Seg Neutrophils # Man 18.5 H Lymphocytes # (Manual) 0.6 L Monocytes # (Manual) PT INR D-Dimer Heparin Anti-Xa Level POC ABG pH ABG pH POC ABG pCO2 POC ABG pO2 ABG pO2 ABG HCO3 ABG O2 Saturation ABG Base Excess ABG Hemoglobin Oxyhemoglobin Sodium 135 L Potassium 5.2 H D Chloride 92.2 L Carbon Dioxide 18 L BUN 109 H Creatinine 8.5 H Glucose 117 H POC Glucose 69 L Lactic Acid Calcium 4.5 L* D Ionized Calcium Phosphorus Magnesium Iron TIBC Ferritin Total Bilirubin Direct Bilirubin AST ALT Alkaline Phosphatase Total Creatine Kinase 4527 H CK-MB (CK-2) Troponin T C-Reactive Protein Total Protein Albumin Triglycerides LDL Cholesterol Direct HDL Cholesterol Free T4 PTH Intact Urine WBC (Auto) Urine Creatinine Salicylates Acetaminophen Crossmatch 03/27/19 03/27/19 03/27/19 04:30 04:30 09:00 WBC 19.2 H RBC 3.42 L Hgb 9.9 L Hct 30.0 L MCV MCHC RDW Plt Count 84 L Lymph % (Auto) [place] % (Auto) Lymph # [place] # Seg Neutrophils % Seg Neuts % (Manual) Lymphocytes % (Manual) Monocytes % (Manual) Nucleated RBC % Seg Neutrophils # Seg Neutrophils # Man Lymphocytes # (Manual) Monocytes # (Manual) PT INR D-Dimer Heparin Anti-Xa Level POC ABG pH ABG pH POC ABG pCO2 POC ABG pO2 ABG pO2 ABG HCO3 ABG O2 Saturation ABG Base Excess ABG Hemoglobin Oxyhemoglobin Sodium 135 L Potassium Chloride 93.5 L Carbon Dioxide BUN 84 H Creatinine 7.1 H Glucose POC Glucose Lactic Acid Calcium 5.0 L* Ionized Calcium Phosphorus Magnesium Iron TIBC Ferritin Total Bilirubin Direct Bilirubin AST 78 H ALT Alkaline Phosphatase 135 H Total Creatine Kinase 4677 H CK-MB (CK-2) Troponin T C-Reactive Protein Total Protein 4.8 L Albumin 2.3 L Triglycerides 409 H LDL Cholesterol Direct HDL Cholesterol Free T4 PTH Intact Urine WBC (Auto) Urine Creatinine Salicylates Acetaminophen Crossmatch 03/27/19 03/27/19 03/27/19 12:37 14:15 14:15 WBC RBC Hgb 9.7 L Hct 29.5 L MCV MCHC RDW Plt Count 87 L Lymph % (Auto) [place] % (Auto) Lymph # [place] # Seg Neutrophils % Seg Neuts % (Manual) Lymphocytes % (Manual) Monocytes % (Manual) Nucleated RBC % Seg Neutrophils # Seg Neutrophils # Man Lymphocytes # (Manual) Monocytes # (Manual) PT 15.9 H INR 1.30 H D-Dimer Heparin Anti-Xa Level POC ABG pH ABG pH POC ABG pCO2 POC ABG pO2 ABG pO2 ABG HCO3 ABG O2 Saturation ABG Base Excess ABG Hemoglobin Oxyhemoglobin Sodium Potassium Chloride Carbon Dioxide BUN Creatinine Glucose POC Glucose 129 H Lactic Acid Calcium Ionized Calcium Phosphorus Magnesium Iron TIBC Ferritin Total Bilirubin Direct Bilirubin AST ALT Alkaline Phosphatase Total Creatine Kinase CK-MB (CK-2) Troponin T C-Reactive Protein Total Protein Albumin Triglycerides LDL Cholesterol Direct HDL Cholesterol Free T4 PTH Intact Urine WBC (Auto) Urine Creatinine Salicylates Acetaminophen Crossmatch 03/27/19 03/27/19 03/27/19 18:00 19:22 19:23 WBC RBC Hgb Hct MCV MCHC RDW Plt Count Lymph % (Auto) [place] % (Auto) Lymph # [place] # Seg Neutrophils % Seg Neuts % (Manual) Lymphocytes % (Manual) Monocytes % (Manual) Nucleated RBC % Seg Neutrophils # Seg Neutrophils # Man Lymphocytes # (Manual) Monocytes # (Manual) PT INR D-Dimer Heparin Anti-Xa Level < 0.10 L POC ABG pH ABG pH POC ABG pCO2 POC ABG pO2 ABG pO2 ABG HCO3 ABG O2 Saturation ABG Base Excess ABG Hemoglobin Oxyhemoglobin Sodium Potassium Chloride Carbon Dioxide BUN Creatinine Glucose POC Glucose 121 H Lactic Acid Calcium Ionized Calcium Phosphorus Magnesium Iron TIBC Ferritin Total Bilirubin Direct Bilirubin AST ALT Alkaline Phosphatase Total Creatine Kinase 4517 H CK-MB (CK-2) Troponin T C-Reactive Protein Total Protein Albumin Triglycerides LDL Cholesterol Direct HDL Cholesterol Free T4 PTH Intact Urine WBC (Auto) Urine Creatinine Salicylates Acetaminophen Crossmatch 03/27/19 03/27/19 03/28/19 22:10 23:52 03:49 WBC RBC Hgb Hct MCV MCHC RDW Plt Count Lymph % (Auto) [place] % (Auto) Lymph # [place] # Seg Neutrophils % Seg Neuts % (Manual) Lymphocytes % (Manual) Monocytes % (Manual) Nucleated RBC % Seg Neutrophils # Seg Neutrophils # Man Lymphocytes # (Manual) Monocytes # (Manual) PT INR D-Dimer Heparin Anti-Xa Level POC ABG pH 7.338 L ABG pH POC ABG pCO2 33.1 L POC ABG pO2 ABG pO2 ABG HCO3 ABG O2 Saturation ABG Base Excess ABG Hemoglobin Oxyhemoglobin Sodium Potassium Chloride Carbon Dioxide BUN Creatinine Glucose POC Glucose 113 H 117 H Lactic Acid Calcium Ionized Calcium Phosphorus Magnesium Iron TIBC Ferritin Total Bilirubin Direct Bilirubin AST ALT Alkaline Phosphatase Total Creatine Kinase CK-MB (CK-2) Troponin T C-Reactive Protein Total Protein Albumin Triglycerides LDL Cholesterol Direct HDL Cholesterol Free T4 PTH Intact Urine WBC (Auto) Urine Creatinine Salicylates Acetaminophen Crossmatch 03/28/19 03/28/19 03/28/19 05:13 05:13 06:18 WBC RBC Hgb Hct MCV MCHC RDW Plt Count Lymph % (Auto) [place] % (Auto) Lymph # [place] # Seg Neutrophils % Seg Neuts % (Manual) Lymphocytes % (Manual) Monocytes % (Manual) Nucleated RBC % Seg Neutrophils # Seg Neutrophils # Man Lymphocytes # (Manual) Monocytes # (Manual) PT INR D-Dimer Heparin Anti-Xa Level 0.23 L POC ABG pH ABG pH POC ABG pCO2 POC ABG pO2 ABG pO2 ABG HCO3 ABG O2 Saturation ABG Base Excess ABG Hemoglobin Oxyhemoglobin Sodium 135 L Potassium 5.5 H D Chloride 95.1 L Carbon Dioxide 16 L D BUN 129 H Creatinine 9.3 H Glucose 158 H POC Glucose 202 H Lactic Acid Calcium 4.0 L* D Ionized Calcium Phosphorus 12.40 H Magnesium Iron TIBC Ferritin Total Bilirubin Direct Bilirubin AST ALT Alkaline Phosphatase Total Creatine Kinase 4266 H CK-MB (CK-2) Troponin T C-Reactive Protein Total Protein Albumin Triglycerides LDL Cholesterol Direct HDL Cholesterol Free T4 PTH Intact Urine WBC (Auto) Urine Creatinine Salicylates Acetaminophen Crossmatch 03/28/19 03/28/19 03/28/19 08:25 10:00 12:00 WBC RBC Hgb 4.9 L* D Hct 15.4 L* D MCV MCHC RDW Plt Count Lymph % (Auto) [place] % (Auto) Lymph # [place] # Seg Neutrophils % Seg Neuts % (Manual) Lymphocytes % (Manual) Monocytes % (Manual) Nucleated RBC % Seg Neutrophils # Seg Neutrophils # Man Lymphocytes # (Manual) Monocytes # (Manual) PT 17.9 H INR 1.52 H D-Dimer 4845.98 H Heparin Anti-Xa Level POC ABG pH ABG pH POC ABG pCO2 POC ABG pO2 ABG pO2 ABG HCO3 ABG O2 Saturation ABG Base Excess ABG Hemoglobin Oxyhemoglobin Sodium Potassium Chloride Carbon Dioxide BUN Creatinine Glucose POC Glucose Lactic Acid Calcium Ionized Calcium Phosphorus Magnesium Iron TIBC Ferritin Total Bilirubin Direct Bilirubin AST ALT Alkaline Phosphatase Total Creatine Kinase CK-MB (CK-2) Troponin T C-Reactive Protein Total Protein Albumin Triglycerides LDL Cholesterol Direct HDL Cholesterol Free T4 PTH Intact Urine WBC (Auto) Urine Creatinine Salicylates Acetaminophen Crossmatch See Detail 03/28/19 03/28/19 03/28/19 12:28 14:10 17:43 WBC RBC Hgb 5.9 L* Hct 18.3 L* MCV MCHC RDW Plt Count Lymph % (Auto) [place] % (Auto) Lymph # [place] # Seg Neutrophils % Seg Neuts % (Manual) Lymphocytes % (Manual) Monocytes % (Manual) Nucleated RBC % Seg Neutrophils # Seg Neutrophils # Man Lymphocytes # (Manual) Monocytes # (Manual) PT INR D-Dimer Heparin Anti-Xa Level POC ABG pH ABG pH POC ABG pCO2 POC ABG pO2 ABG pO2 ABG HCO3 ABG O2 Saturation ABG Base Excess ABG Hemoglobin Oxyhemoglobin Sodium Potassium Chloride Carbon Dioxide BUN Creatinine Glucose POC Glucose 153 H 159 H Lactic Acid Calcium Ionized Calcium Phosphorus Magnesium Iron TIBC Ferritin Total Bilirubin Direct Bilirubin AST ALT Alkaline Phosphatase Total Creatine Kinase CK-MB (CK-2) Troponin T C-Reactive Protein Total Protein Albumin Triglycerides LDL Cholesterol Direct HDL Cholesterol Free T4 PTH Intact Urine WBC (Auto) Urine Creatinine Salicylates Acetaminophen Crossmatch 03/28/19 03/28/19 03/28/19 18:10 Unknown 23:59 WBC 24.8 H RBC 3.42 L Hgb 10.2 L D Hct 31.1 L D MCV MCHC RDW 15.4 H Plt Count 54 L Lymph % (Auto) [place] % (Auto) Lymph # [place] # Seg Neutrophils % Seg Neuts % (Manual) 91.0 H Lymphocytes % (Manual) 8.0 L Monocytes % (Manual) Nucleated RBC % Seg Neutrophils # Seg Neutrophils # Man 22.6 H Lymphocytes # (Manual) Monocytes # (Manual) PT INR D-Dimer Heparin Anti-Xa Level POC ABG pH ABG pH POC ABG pCO2 POC ABG pO2 ABG pO2 ABG HCO3 ABG O2 Saturation ABG Base Excess ABG Hemoglobin Oxyhemoglobin Sodium Potassium 5.7 H Chloride Carbon Dioxide BUN Creatinine Glucose POC Glucose 107 H Lactic Acid Calcium Ionized Calcium Phosphorus Magnesium Iron TIBC Ferritin Total Bilirubin Direct Bilirubin AST ALT Alkaline Phosphatase Total Creatine Kinase CK-MB (CK-2) Troponin T C-Reactive Protein Total Protein Albumin Triglycerides LDL Cholesterol Direct HDL Cholesterol Free T4 PTH Intact Urine WBC (Auto) Urine Creatinine Salicylates Acetaminophen Crossmatch 03/29/19 03/29/19 03/29/19 04:29 05:46 06:22 WBC RBC Hgb 8.6 L Hct 25.7 L MCV MCHC RDW Plt Count 93 L Lymph % (Auto) [place] % (Auto) Lymph # [place] # Seg Neutrophils % Seg Neuts % (Manual) Lymphocytes % (Manual) Monocytes % (Manual) Nucleated RBC % Seg Neutrophils # Seg Neutrophils # Man Lymphocytes # (Manual) Monocytes # (Manual) PT INR D-Dimer Heparin Anti-Xa Level POC ABG pH ABG pH POC ABG pCO2 32.2 L POC ABG pO2 ABG pO2 ABG HCO3 ABG O2 Saturation ABG Base Excess ABG Hemoglobin Oxyhemoglobin Sodium Potassium Chloride Carbon Dioxide BUN Creatinine Glucose POC Glucose 113 H Lactic Acid Calcium Ionized Calcium Phosphorus Magnesium Iron TIBC Ferritin Total Bilirubin Direct Bilirubin AST ALT Alkaline Phosphatase Total Creatine Kinase CK-MB (CK-2) Troponin T C-Reactive Protein Total Protein Albumin Triglycerides LDL Cholesterol Direct HDL Cholesterol Free T4 PTH Intact Urine WBC (Auto) Urine Creatinine Salicylates Acetaminophen Crossmatch 03/29/19 03/29/19 03/29/19 06:22 06:22 06:22 WBC 23.2 H RBC 2.91 L Hgb 8.6 L Hct 25.8 L MCV MCHC RDW Plt Count 91 L Lymph % (Auto) [place] % (Auto) Lymph # [place] # Seg Neutrophils % Seg Neuts % (Manual) Lymphocytes % (Manual) Monocytes % (Manual) Nucleated RBC % Seg Neutrophils # Seg Neutrophils # Man Lymphocytes # (Manual) Monocytes # (Manual) PT INR D-Dimer Heparin Anti-Xa Level POC ABG pH ABG pH POC ABG pCO2 POC ABG pO2 ABG pO2 ABG HCO3 ABG O2 Saturation ABG Base Excess ABG Hemoglobin Oxyhemoglobin Sodium 133 L Potassium Chloride 93.8 L Carbon Dioxide 18 L BUN 109 H Creatinine 7.4 H Glucose 124 H POC Glucose Lactic Acid Calcium 4.6 L* Ionized Calcium Phosphorus Magnesium Iron TIBC Ferritin Total Bilirubin Direct Bilirubin AST ALT Alkaline Phosphatase Total Creatine Kinase 3401 H CK-MB (CK-2) Troponin T C-Reactive Protein Total Protein Albumin Triglycerides 309 H LDL Cholesterol Direct HDL Cholesterol Free T4 PTH Intact Urine WBC (Auto) Urine Creatinine Salicylates Acetaminophen Crossmatch 03/29/19 03/29/19 03/29/19 11:48 11:48 18:24 WBC RBC Hgb 7.8 L Hct 23.2 L MCV MCHC RDW Plt Count Lymph % (Auto) [place] % (Auto) Lymph # [place] # Seg Neutrophils % Seg Neuts % (Manual) Lymphocytes % (Manual) Monocytes % (Manual) Nucleated RBC % Seg Neutrophils # Seg Neutrophils # Man Lymphocytes # (Manual) Monocytes # (Manual) PT 15.3 H INR 1.24 H D-Dimer Heparin Anti-Xa Level POC ABG pH ABG pH POC ABG pCO2 POC ABG pO2 ABG pO2 ABG HCO3 ABG O2 Saturation ABG Base Excess ABG Hemoglobin Oxyhemoglobin Sodium Potassium Chloride Carbon Dioxide BUN Creatinine Glucose POC Glucose 122 H Lactic Acid Calcium Ionized Calcium Phosphorus Magnesium Iron TIBC Ferritin Total Bilirubin Direct Bilirubin AST ALT Alkaline Phosphatase Total Creatine Kinase CK-MB (CK-2) Troponin T C-Reactive Protein Total Protein Albumin Triglycerides LDL Cholesterol Direct HDL Cholesterol Free T4 PTH Intact Urine WBC (Auto) Urine Creatinine Salicylates Acetaminophen Crossmatch 03/30/19 03/30/19 03/30/19 00:40 04:31 05:04 WBC RBC Hgb 7.6 L Hct 23.0 L MCV MCHC RDW Plt Count Lymph % (Auto) [place] % (Auto) Lymph # [place] # Seg Neutrophils % Seg Neuts % (Manual) Lymphocytes % (Manual) Monocytes % (Manual) Nucleated RBC % Seg Neutrophils # Seg Neutrophils # Man Lymphocytes # (Manual) Monocytes # (Manual) PT INR D-Dimer Heparin Anti-Xa Level POC ABG pH 7.346 L ABG pH POC ABG pCO2 POC ABG pO2 62 L ABG pO2 ABG HCO3 ABG O2 Saturation ABG Base Excess ABG Hemoglobin Oxyhemoglobin Sodium Potassium Chloride Carbon Dioxide BUN 79 H Creatinine 6.4 H Glucose POC Glucose Lactic Acid Calcium 6.1 L D Ionized Calcium Phosphorus Magnesium Iron TIBC Ferritin Total Bilirubin Direct Bilirubin AST ALT Alkaline Phosphatase Total Creatine Kinase CK-MB (CK-2) Troponin T C-Reactive Protein Total Protein Albumin Triglycerides LDL Cholesterol Direct HDL Cholesterol Free T4 PTH Intact Urine WBC (Auto) Urine Creatinine Salicylates Acetaminophen Crossmatch 03/30/19 03/30/19 03/30/19 08:45 12:09 22:43 WBC 14.3 H RBC 2.33 L Hgb 7.0 L 7.4 L Hct 21.0 L 22.3 L MCV MCHC RDW 15.6 H Plt Count 135 L Lymph % (Auto) [place] % (Auto) Lymph # [place] # Seg Neutrophils % Seg Neuts % (Manual) Lymphocytes % (Manual) Monocytes % (Manual) Nucleated RBC % Seg Neutrophils # Seg Neutrophils # Man Lymphocytes # (Manual) Monocytes # (Manual) PT INR D-Dimer Heparin Anti-Xa Level POC ABG pH ABG pH POC ABG pCO2 POC ABG pO2 ABG pO2 ABG HCO3 ABG O2 Saturation ABG Base Excess ABG Hemoglobin Oxyhemoglobin Sodium Potassium Chloride Carbon Dioxide BUN Creatinine Glucose POC Glucose Lactic Acid Calcium Ionized Calcium 3.7 L Phosphorus Magnesium Iron TIBC Ferritin Total Bilirubin Direct Bilirubin AST ALT Alkaline Phosphatase Total Creatine Kinase CK-MB (CK-2) Troponin T C-Reactive Protein Total Protein Albumin Triglycerides LDL Cholesterol Direct HDL Cholesterol Free T4 PTH Intact Urine WBC (Auto) Urine Creatinine Salicylates Acetaminophen Crossmatch 03/30/19 03/30/19 03/31/19 23:38 Unknown 04:44 WBC 11.5 H RBC 2.40 L Hgb 7.3 L Hct 21.9 L MCV MCHC RDW 15.4 H Plt Count Lymph % (Auto) 10.6 L [place] % (Auto) Lymph # [place] # Seg Neutrophils % 81.7 H Seg Neuts % (Manual) Lymphocytes % (Manual) Monocytes % (Manual) Nucleated RBC % Seg Neutrophils # 9.4 H Seg Neutrophils # Man Lymphocytes # (Manual) Monocytes # (Manual) PT INR D-Dimer Heparin Anti-Xa Level POC ABG pH ABG pH POC ABG pCO2 POC ABG pO2 ABG pO2 ABG HCO3 ABG O2 Saturation ABG Base Excess ABG Hemoglobin Oxyhemoglobin Sodium Potassium Chloride Carbon Dioxide BUN Creatinine Glucose POC Glucose 155 H Lactic Acid Calcium Ionized Calcium Phosphorus Magnesium Iron TIBC Ferritin Total Bilirubin Direct Bilirubin 0.4 H AST 63 H ALT Alkaline Phosphatase Total Creatine Kinase CK-MB (CK-2) Troponin T C-Reactive Protein Total Protein 4.9 L Albumin 2.2 L Triglycerides LDL Cholesterol Direct HDL Cholesterol Free T4 PTH Intact Urine WBC (Auto) Urine Creatinine Salicylates Acetaminophen Crossmatch 03/31/19 03/31/19 03/31/19 04:44 05:44 08:20 WBC RBC Hgb Hct MCV MCHC RDW Plt Count Lymph % (Auto) [place] % (Auto) Lymph # [place] # Seg Neutrophils % Seg Neuts % (Manual) Lymphocytes % (Manual) Monocytes % (Manual) Nucleated RBC % Seg Neutrophils # Seg Neutrophils # Man Lymphocytes # (Manual) Monocytes # (Manual) PT INR D-Dimer Heparin Anti-Xa Level POC ABG pH ABG pH POC ABG pCO2 53.5 H POC ABG pO2 62 L ABG pO2 ABG HCO3 ABG O2 Saturation ABG Base Excess ABG Hemoglobin Oxyhemoglobin Sodium 135 L Potassium Chloride 96.7 L Carbon Dioxide 19 L BUN 94 H Creatinine 7.8 H Glucose POC Glucose Lactic Acid Calcium 5.3 L* Ionized Calcium Phosphorus 8.20 H Magnesium Iron TIBC Ferritin Total Bilirubin Direct Bilirubin 0.4 H AST 60 H ALT Alkaline Phosphatase Total Creatine Kinase CK-MB (CK-2) Troponin T C-Reactive Protein Total Protein 4.8 L Albumin 2.1 L Triglycerides LDL Cholesterol Direct HDL Cholesterol Free T4 PTH Intact Urine WBC (Auto) Urine Creatinine Salicylates Acetaminophen Crossmatch 03/31/19 04/01/19 04/01/19 22:14 04:27 04:27 WBC RBC 2.60 L Hgb 8.0 L Hct 24.1 L MCV MCHC RDW 15.7 H Plt Count Lymph % (Auto) 7.9 L [place] % (Auto) Lymph # 0.7 L [place] # Seg Neutrophils % 83.6 H Seg Neuts % (Manual) Lymphocytes % (Manual) Monocytes % (Manual) Nucleated RBC % Seg Neutrophils # Seg Neutrophils # Man Lymphocytes # (Manual) Monocytes # (Manual) PT INR D-Dimer Heparin Anti-Xa Level POC ABG pH 7.286 L ABG pH POC ABG pCO2 54.7 H POC ABG pO2 179 H ABG pO2 ABG HCO3 ABG O2 Saturation ABG Base Excess ABG Hemoglobin Oxyhemoglobin Sodium Potassium Chloride Carbon Dioxide BUN 68 H Creatinine 6.6 H Glucose POC Glucose Lactic Acid Calcium 6.5 L D Ionized Calcium Phosphorus 7.30 H Magnesium Iron TIBC Ferritin Total Bilirubin Direct Bilirubin AST ALT Alkaline Phosphatase Total Creatine Kinase 1652 H CK-MB (CK-2) Troponin T C-Reactive Protein Total Protein Albumin Triglycerides LDL Cholesterol Direct HDL Cholesterol Free T4 PTH Intact Urine WBC (Auto) Urine Creatinine Salicylates Acetaminophen Crossmatch 04/01/19 04/01/19 04/01/19 05:14 05:37 18:37 WBC RBC Hgb Hct MCV MCHC RDW Plt Count Lymph % (Auto) [place] % (Auto) Lymph # [place] # Seg Neutrophils % Seg Neuts % (Manual) Lymphocytes % (Manual) Monocytes % (Manual) Nucleated RBC % Seg Neutrophils # Seg Neutrophils # Man Lymphocytes # (Manual) Monocytes # (Manual) PT INR D-Dimer Heparin Anti-Xa Level POC ABG pH 7.283 L ABG pH POC ABG pCO2 53.4 H POC ABG pO2 241 H ABG pO2 ABG HCO3 ABG O2 Saturation ABG Base Excess ABG Hemoglobin Oxyhemoglobin Sodium Potassium Chloride Carbon Dioxide BUN Creatinine Glucose POC Glucose 111 H 119 H Lactic Acid Calcium Ionized Calcium Phosphorus Magnesium Iron TIBC Ferritin Total Bilirubin Direct Bilirubin AST ALT Alkaline Phosphatase Total Creatine Kinase CK-MB (CK-2) Troponin T C-Reactive Protein Total Protein Albumin Triglycerides LDL Cholesterol Direct HDL Cholesterol Free T4 PTH Intact Urine WBC (Auto) Urine Creatinine Salicylates Acetaminophen Crossmatch 04/01/19 04/02/19 04/02/19 21:28 04:40 05:03 WBC RBC 2.36 L Hgb 7.2 L Hct 21.9 L MCV MCHC RDW 16.0 H Plt Count Lymph % (Auto) 10.8 L [place] % (Auto) Lymph # 0.8 L [place] # Seg Neutrophils % 80.3 H Seg Neuts % (Manual) Lymphocytes % (Manual) Monocytes % (Manual) Nucleated RBC % Seg Neutrophils # Seg Neutrophils # Man Lymphocytes # (Manual) Monocytes # (Manual) PT INR D-Dimer Heparin Anti-Xa Level POC ABG pH 7.299 L 7.300 L ABG pH POC ABG pCO2 48.2 H 45.2 H POC ABG pO2 133 H 107 H ABG pO2 ABG HCO3 ABG O2 Saturation ABG Base Excess ABG Hemoglobin Oxyhemoglobin Sodium Potassium Chloride Carbon Dioxide BUN Creatinine Glucose POC Glucose Lactic Acid Calcium Ionized Calcium Phosphorus Magnesium Iron TIBC Ferritin Total Bilirubin Direct Bilirubin AST ALT Alkaline Phosphatase Total Creatine Kinase CK-MB (CK-2) Troponin T C-Reactive Protein Total Protein Albumin Triglycerides LDL Cholesterol Direct HDL Cholesterol Free T4 PTH Intact Urine WBC (Auto) Urine Creatinine Salicylates Acetaminophen Crossmatch 04/02/19 04/02/19 04/02/19 05:03 05:03 12:15 WBC RBC Hgb 7.4 L Hct 22.6 L MCV MCHC RDW Plt Count Lymph % (Auto) [place] % (Auto) Lymph # [place] # Seg Neutrophils % Seg Neuts % (Manual) Lymphocytes % (Manual) Monocytes % (Manual) Nucleated RBC % Seg Neutrophils # Seg Neutrophils # Man Lymphocytes # (Manual) Monocytes # (Manual) PT INR D-Dimer Heparin Anti-Xa Level POC ABG pH ABG pH POC ABG pCO2 POC ABG pO2 ABG pO2 ABG HCO3 ABG O2 Saturation ABG Base Excess ABG Hemoglobin Oxyhemoglobin Sodium 136 L Potassium Chloride 97.8 L Carbon Dioxide 18 L BUN 82 H Creatinine 8.2 H Glucose POC Glucose Lactic Acid Calcium 6.7 L Ionized Calcium Phosphorus 7.50 H Magnesium Iron 26 L TIBC 138 L Ferritin 607.0 H Total Bilirubin Direct Bilirubin AST ALT Alkaline Phosphatase Total Creatine Kinase CK-MB (CK-2) Troponin T C-Reactive Protein Total Protein Albumin Triglycerides LDL Cholesterol Direct HDL Cholesterol Free T4 PTH Intact Urine WBC (Auto) Urine Creatinine Salicylates Acetaminophen Crossmatch 04/02/19 04/02/19 04/03/19 16:34 17:14 04:18 WBC RBC Hgb Hct MCV MCHC RDW Plt Count Lymph % (Auto) [place] % (Auto) Lymph # [place] # Seg Neutrophils % Seg Neuts % (Manual) Lymphocytes % (Manual) Monocytes % (Manual) Nucleated RBC % Seg Neutrophils # Seg Neutrophils # Man Lymphocytes # (Manual) Monocytes # (Manual) PT INR D-Dimer Heparin Anti-Xa Level POC ABG pH ABG pH POC ABG pCO2 POC ABG pO2 146 H ABG pO2 ABG HCO3 ABG O2 Saturation ABG Base Excess ABG Hemoglobin Oxyhemoglobin Sodium Potassium Chloride Carbon Dioxide BUN Creatinine Glucose POC Glucose 108 H Lactic Acid Calcium Ionized Calcium Phosphorus Magnesium Iron TIBC Ferritin Total Bilirubin Direct Bilirubin AST ALT Alkaline Phosphatase Total Creatine Kinase CK-MB (CK-2) Troponin T C-Reactive Protein Total Protein Albumin Triglycerides LDL Cholesterol Direct HDL Cholesterol Free T4 PTH Intact Urine WBC (Auto) Urine Creatinine Salicylates Acetaminophen Crossmatch See Detail 04/03/19 04/03/19 04/03/19 04:25 08:30 18:24 WBC RBC 2.40 L Hgb 7.3 L Hct 21.9 L MCV MCHC RDW Plt Count Lymph % (Auto) [place] % (Auto) 7.7 H Lymph # 0.9 L [place] # Seg Neutrophils % 74.6 H Seg Neuts % (Manual) Lymphocytes % (Manual) Monocytes % (Manual) Nucleated RBC % Seg Neutrophils # Seg Neutrophils # Man Lymphocytes # (Manual) Monocytes # (Manual) PT INR D-Dimer Heparin Anti-Xa Level POC ABG pH ABG pH POC ABG pCO2 POC ABG pO2 ABG pO2 ABG HCO3 ABG O2 Saturation ABG Base Excess ABG Hemoglobin Oxyhemoglobin Sodium 136 L Potassium Chloride 97.0 L Carbon Dioxide BUN 58 H Creatinine 7.3 H Glucose POC Glucose 106 H Lactic Acid Calcium 7.5 L Ionized Calcium Phosphorus 5.80 H D Magnesium Iron TIBC Ferritin Total Bilirubin Direct Bilirubin AST ALT Alkaline Phosphatase Total Creatine Kinase CK-MB (CK-2) Troponin T C-Reactive Protein Total Protein Albumin Triglycerides LDL Cholesterol Direct HDL Cholesterol Free T4 PTH Intact Urine WBC (Auto) Urine Creatinine Salicylates Acetaminophen Crossmatch 04/03/19 04/04/19 04/04/19 23:43 04:47 04:47 WBC RBC 2.72 L Hgb 8.3 L Hct 24.7 L MCV MCHC RDW 15.6 H Plt Count Lymph % (Auto) [place] % (Auto) 10.1 H Lymph # 0.8 L [place] # Seg Neutrophils % 71.4 H Seg Neuts % (Manual) Lymphocytes % (Manual) Monocytes % (Manual) Nucleated RBC % Seg Neutrophils # Seg Neutrophils # Man Lymphocytes # (Manual) Monocytes # (Manual) PT INR D-Dimer Heparin Anti-Xa Level POC ABG pH ABG pH POC ABG pCO2 POC ABG pO2 ABG pO2 123.8 H ABG HCO3 ABG O2 Saturation ABG Base Excess -3.0 L ABG Hemoglobin 7.9 L Oxyhemoglobin Sodium 134 L Potassium Chloride 97.9 L Carbon Dioxide BUN 64 H Creatinine 8.1 H Glucose POC Glucose Lactic Acid Calcium 7.2 L Ionized Calcium Phosphorus Magnesium Iron TIBC Ferritin Total Bilirubin Direct Bilirubin AST ALT Alkaline Phosphatase Total Creatine Kinase CK-MB (CK-2) Troponin T C-Reactive Protein Total Protein Albumin Triglycerides LDL Cholesterol Direct HDL Cholesterol Free T4 PTH Intact Urine WBC (Auto) Urine Creatinine Salicylates Acetaminophen Crossmatch 04/04/19 04/04/19 04/04/19 06:07 13:40 18:18 WBC RBC Hgb Hct MCV MCHC RDW Plt Count Lymph % (Auto) [place] % (Auto) Lymph # [place] # Seg Neutrophils % Seg Neuts % (Manual) Lymphocytes % (Manual) Monocytes % (Manual) Nucleated RBC % Seg Neutrophils # Seg Neutrophils # Man Lymphocytes # (Manual) Monocytes # (Manual) PT INR D-Dimer Heparin Anti-Xa Level POC ABG pH ABG pH POC ABG pCO2 POC ABG pO2 ABG pO2 95.9 H ABG HCO3 ABG O2 Saturation ABG Base Excess -3.0 L ABG Hemoglobin 8.5 L Oxyhemoglobin Sodium Potassium Chloride Carbon Dioxide BUN Creatinine Glucose POC Glucose 107 H 107 H Lactic Acid Calcium Ionized Calcium Phosphorus Magnesium Iron TIBC Ferritin Total Bilirubin Direct Bilirubin AST ALT Alkaline Phosphatase Total Creatine Kinase CK-MB (CK-2) Troponin T C-Reactive Protein Total Protein Albumin Triglycerides LDL Cholesterol Direct HDL Cholesterol Free T4 PTH Intact Urine WBC (Auto) Urine Creatinine Salicylates Acetaminophen Crossmatch 04/04/19 04/05/19 04/05/19 21:22 04:09 04:09 WBC RBC 2.76 L Hgb 8.4 L Hct 25.4 L MCV MCHC RDW 15.8 H Plt Count 133 L Lymph % (Auto) [place] % (Auto) 9.6 H Lymph # 0.7 L [place] # Seg Neutrophils % 72.6 H Seg Neuts % (Manual) Lymphocytes % (Manual) Monocytes % (Manual) Nucleated RBC % Seg Neutrophils # Seg Neutrophils # Man Lymphocytes # (Manual) Monocytes # (Manual) PT INR D-Dimer Heparin Anti-Xa Level POC ABG pH ABG pH POC ABG pCO2 47.2 H POC ABG pO2 137 H ABG pO2 ABG HCO3 ABG O2 Saturation ABG Base Excess ABG Hemoglobin Oxyhemoglobin Sodium 136 L Potassium Chloride Carbon Dioxide BUN 46 H Creatinine 6.7 H Glucose POC Glucose Lactic Acid Calcium 7.7 L Ionized Calcium Phosphorus Magnesium Iron TIBC Ferritin Total Bilirubin Direct Bilirubin AST ALT Alkaline Phosphatase Total Creatine Kinase CK-MB (CK-2) Troponin T C-Reactive Protein Total Protein Albumin Triglycerides LDL Cholesterol Direct HDL Cholesterol Free T4 PTH Intact Urine WBC (Auto) Urine Creatinine Salicylates Acetaminophen Crossmatch 04/05/19 04/05/19 04/05/19 05:28 06:14 16:50 WBC RBC Hgb Hct MCV MCHC RDW Plt Count Lymph % (Auto) [place] % (Auto) Lymph # [place] # Seg Neutrophils % Seg Neuts % (Manual) Lymphocytes % (Manual) Monocytes % (Manual) Nucleated RBC % Seg Neutrophils # Seg Neutrophils # Man Lymphocytes # (Manual) Monocytes # (Manual) PT INR D-Dimer Heparin Anti-Xa Level POC ABG pH ABG pH POC ABG pCO2 POC ABG pO2 67 L ABG pO2 ABG HCO3 ABG O2 Saturation ABG Base Excess ABG Hemoglobin Oxyhemoglobin Sodium Potassium Chloride Carbon Dioxide BUN Creatinine Glucose POC Glucose 108 H Lactic Acid Calcium Ionized Calcium Phosphorus Magnesium Iron TIBC Ferritin Total Bilirubin Direct Bilirubin AST ALT Alkaline Phosphatase Total Creatine Kinase CK-MB (CK-2) Troponin T C-Reactive Protein Total Protein Albumin Triglycerides LDL Cholesterol Direct HDL Cholesterol Free T4 PTH Intact Urine WBC (Auto) 40.0 H Urine Creatinine Salicylates Acetaminophen Crossmatch 04/05/19 04/06/19 04/06/19 17:22 00:13 04:44 WBC RBC 2.48 L Hgb 7.5 L Hct 22.9 L MCV MCHC RDW 16.0 H Plt Count 107 L Lymph % (Auto) [place] % (Auto) 10.7 H Lymph # 1.0 L [place] # Seg Neutrophils % Seg Neuts % (Manual) Lymphocytes % (Manual) Monocytes % (Manual) Nucleated RBC % Seg Neutrophils # Seg Neutrophils # Man Lymphocytes # (Manual) Monocytes # (Manual) PT INR D-Dimer Heparin Anti-Xa Level POC ABG pH ABG pH POC ABG pCO2 POC ABG pO2 ABG pO2 ABG HCO3 ABG O2 Saturation ABG Base Excess ABG Hemoglobin Oxyhemoglobin Sodium Potassium Chloride Carbon Dioxide BUN Creatinine Glucose POC Glucose 118 H 138 H Lactic Acid Calcium Ionized Calcium Phosphorus Magnesium Iron TIBC Ferritin Total Bilirubin Direct Bilirubin AST ALT Alkaline Phosphatase Total Creatine Kinase CK-MB (CK-2) Troponin T C-Reactive Protein Total Protein Albumin Triglycerides LDL Cholesterol Direct HDL Cholesterol Free T4 PTH Intact Urine WBC (Auto) Urine Creatinine Salicylates Acetaminophen Crossmatch 04/06/19 04/06/19 04/06/19 04:44 05:20 05:23 WBC RBC Hgb Hct MCV MCHC RDW Plt Count Lymph % (Auto) [place] % (Auto) Lymph # [place] # Seg Neutrophils % Seg Neuts % (Manual) Lymphocytes % (Manual) Monocytes % (Manual) Nucleated RBC % Seg Neutrophils # Seg Neutrophils # Man Lymphocytes # (Manual) Monocytes # (Manual) PT INR D-Dimer Heparin Anti-Xa Level POC ABG pH ABG pH POC ABG pCO2 POC ABG pO2 ABG pO2 104.0 H ABG HCO3 ABG O2 Saturation ABG Base Excess -2.1 L ABG Hemoglobin 7.3 L Oxyhemoglobin Sodium Potassium Chloride Carbon Dioxide BUN 64 H Creatinine 8.2 H Glucose 103 H POC Glucose 118 H Lactic Acid Calcium 7.3 L Ionized Calcium Phosphorus Magnesium Iron TIBC Ferritin Total Bilirubin Direct Bilirubin AST ALT Alkaline Phosphatase Total Creatine Kinase CK-MB (CK-2) Troponin T C-Reactive Protein Total Protein Albumin Triglycerides LDL Cholesterol Direct HDL Cholesterol Free T4 PTH Intact Urine WBC (Auto) Urine Creatinine Salicylates Acetaminophen Crossmatch 04/06/19 04/07/19 04/07/19 12:02 05:40 05:40 WBC RBC 2.59 L Hgb 7.9 L Hct 23.8 L MCV MCHC RDW 15.8 H Plt Count 89 L Lymph % (Auto) [place] % (Auto) 10.3 H Lymph # 1.1 L [place] # Seg Neutrophils % Seg Neuts % (Manual) Lymphocytes % (Manual) Monocytes % (Manual) Nucleated RBC % Seg Neutrophils # Seg Neutrophils # Man Lymphocytes # (Manual) Monocytes # (Manual) PT INR D-Dimer Heparin Anti-Xa Level POC ABG pH ABG pH POC ABG pCO2 POC ABG pO2 ABG pO2 ABG HCO3 ABG O2 Saturation ABG Base Excess ABG Hemoglobin Oxyhemoglobin Sodium 136 L Potassium 3.5 L Chloride Carbon Dioxide BUN 46 H Creatinine 6.2 H Glucose POC Glucose 108 H Lactic Acid Calcium 7.9 L Ionized Calcium Phosphorus Magnesium Iron TIBC Ferritin Total Bilirubin Direct Bilirubin AST ALT Alkaline Phosphatase Total Creatine Kinase CK-MB (CK-2) Troponin T C-Reactive Protein Total Protein Albumin Triglycerides LDL Cholesterol Direct HDL Cholesterol Free T4 PTH Intact Urine WBC (Auto) Urine Creatinine Salicylates Acetaminophen Crossmatch 04/07/19 04/09/19 04/09/19 12:57 04:28 04:28 WBC RBC 2.85 L Hgb 8.7 L Hct 26.2 L MCV MCHC RDW 15.6 H Plt Count Lymph % (Auto) [place] % (Auto) 10.4 H Lymph # 1.0 L [place] # Seg Neutrophils % 73.3 H Seg Neuts % (Manual) Lymphocytes % (Manual) Monocytes % (Manual) Nucleated RBC % Seg Neutrophils # Seg Neutrophils # Man Lymphocytes # (Manual) Monocytes # (Manual) PT INR D-Dimer Heparin Anti-Xa Level POC ABG pH ABG pH POC ABG pCO2 POC ABG pO2 107 H ABG pO2 ABG HCO3 ABG O2 Saturation ABG Base Excess ABG Hemoglobin Oxyhemoglobin Sodium Potassium 3.5 L Chloride 97.8 L Carbon Dioxide BUN 62 H Creatinine 8.1 H Glucose POC Glucose Lactic Acid Calcium 8.2 L Ionized Calcium Phosphorus 5.10 H Magnesium Iron TIBC Ferritin Total Bilirubin Direct Bilirubin AST ALT Alkaline Phosphatase Total Creatine Kinase CK-MB (CK-2) Troponin T C-Reactive Protein Total Protein Albumin Triglycerides LDL Cholesterol Direct HDL Cholesterol Free T4 PTH Intact Urine WBC (Auto) Urine Creatinine Salicylates Acetaminophen Crossmatch 04/10/19 04/11/19 04/11/19 18:15 00:25 04:16 WBC 11.5 H RBC 2.91 L Hgb 8.9 L Hct 27.6 L MCV 95 H MCHC RDW 17.5 H Plt Count Lymph % (Auto) [place] % (Auto) Lymph # [place] # Seg Neutrophils % Seg Neuts % (Manual) 71.0 H Lymphocytes % (Manual) Monocytes % (Manual) 8.0 H Nucleated RBC % Seg Neutrophils # Seg Neutrophils # Man 8.2 H Lymphocytes # (Manual) Monocytes # (Manual) 0.9 H PT INR D-Dimer Heparin Anti-Xa Level POC ABG pH ABG pH POC ABG pCO2 POC ABG pO2 ABG pO2 ABG HCO3 ABG O2 Saturation ABG Base Excess ABG Hemoglobin Oxyhemoglobin Sodium Potassium Chloride Carbon Dioxide BUN Creatinine Glucose POC Glucose 109 H 114 H Lactic Acid Calcium Ionized Calcium Phosphorus Magnesium Iron TIBC Ferritin Total Bilirubin Direct Bilirubin AST ALT Alkaline Phosphatase Total Creatine Kinase CK-MB (CK-2) Troponin T C-Reactive Protein Total Protein Albumin Triglycerides LDL Cholesterol Direct HDL Cholesterol Free T4 PTH Intact Urine WBC (Auto) Urine Creatinine Salicylates Acetaminophen Crossmatch 04/11/19 04/11/19 04/11/19 06:47 09:21 12:15 WBC RBC Hgb Hct MCV MCHC RDW Plt Count Lymph % (Auto) [place] % (Auto) Lymph # [place] # Seg Neutrophils % Seg Neuts % (Manual) Lymphocytes % (Manual) Monocytes % (Manual) Nucleated RBC % Seg Neutrophils # Seg Neutrophils # Man Lymphocytes # (Manual) Monocytes # (Manual) PT INR D-Dimer Heparin Anti-Xa Level POC ABG pH ABG pH POC ABG pCO2 POC ABG pO2 ABG pO2 ABG HCO3 ABG O2 Saturation ABG Base Excess ABG Hemoglobin Oxyhemoglobin Sodium Potassium 3.5 L Chloride Carbon Dioxide BUN 45 H Creatinine 6.0 H Glucose 113 H POC Glucose 106 H 109 H Lactic Acid Calcium Ionized Calcium Phosphorus Magnesium Iron TIBC Ferritin Total Bilirubin Direct Bilirubin AST ALT Alkaline Phosphatase Total Creatine Kinase CK-MB (CK-2) Troponin T C-Reactive Protein Total Protein Albumin Triglycerides LDL Cholesterol Direct HDL Cholesterol Free T4 PTH Intact Urine WBC (Auto) Urine Creatinine Salicylates Acetaminophen Crossmatch 04/11/19 04/12/19 04/12/19 18:42 12:13 23:52 WBC RBC Hgb Hct MCV MCHC RDW Plt Count Lymph % (Auto) [place] % (Auto) Lymph # [place] # Seg Neutrophils % Seg Neuts % (Manual) Lymphocytes % (Manual) Monocytes % (Manual) Nucleated RBC % Seg Neutrophils # Seg Neutrophils # Man Lymphocytes # (Manual) Monocytes # (Manual) PT INR D-Dimer Heparin Anti-Xa Level POC ABG pH ABG pH POC ABG pCO2 POC ABG pO2 ABG pO2 ABG HCO3 ABG O2 Saturation ABG Base Excess ABG Hemoglobin Oxyhemoglobin Sodium Potassium Chloride Carbon Dioxide BUN Creatinine Glucose POC Glucose 107 H 115 H 124 H Lactic Acid Calcium Ionized Calcium Phosphorus Magnesium Iron TIBC Ferritin Total Bilirubin Direct Bilirubin AST ALT Alkaline Phosphatase Total Creatine Kinase CK-MB (CK-2) Troponin T C-Reactive Protein Total Protein Albumin Triglycerides LDL Cholesterol Direct HDL Cholesterol Free T4 PTH Intact Urine WBC (Auto) Urine Creatinine Salicylates Acetaminophen Crossmatch 04/13/19 04/13/19 04/13/19 05:00 05:00 05:47 WBC 11.7 H RBC 2.97 L Hgb 8.8 L Hct 27.3 L MCV MCHC RDW 16.1 H Plt Count Lymph % (Auto) 9.5 L [place] % (Auto) 9.9 H Lymph # 1.1 L [place] # 1.2 H Seg Neutrophils % 78.6 H Seg Neuts % (Manual) Lymphocytes % (Manual) Monocytes % (Manual) Nucleated RBC % Seg Neutrophils # 9.2 H Seg Neutrophils # Man Lymphocytes # (Manual) Monocytes # (Manual) PT INR D-Dimer Heparin Anti-Xa Level POC ABG pH ABG pH POC ABG pCO2 POC ABG pO2 ABG pO2 ABG HCO3 ABG O2 Saturation ABG Base Excess ABG Hemoglobin Oxyhemoglobin Sodium Potassium 3.5 L Chloride Carbon Dioxide BUN 42 H Creatinine 4.6 H Glucose 106 H POC Glucose 107 H Lactic Acid Calcium 10.6 H D Ionized Calcium Phosphorus 5.90 H Magnesium Iron TIBC Ferritin Total Bilirubin Direct Bilirubin AST ALT Alkaline Phosphatase Total Creatine Kinase CK-MB (CK-2) Troponin T C-Reactive Protein Total Protein 5.8 L Albumin 2.5 L Triglycerides LDL Cholesterol Direct HDL Cholesterol Free T4 PTH Intact Urine WBC (Auto) Urine Creatinine Salicylates Acetaminophen Crossmatch 04/13/19 04/14/19 04/14/19 17:32 00:00 03:55 WBC RBC Hgb Hct MCV MCHC RDW Plt Count Lymph % (Auto) [place] % (Auto) Lymph # [place] # Seg Neutrophils % Seg Neuts % (Manual) Lymphocytes % (Manual) Monocytes % (Manual) Nucleated RBC % Seg Neutrophils # Seg Neutrophils # Man Lymphocytes # (Manual) Monocytes # (Manual) PT INR D-Dimer Heparin Anti-Xa Level POC ABG pH ABG pH POC ABG pCO2 POC ABG pO2 ABG pO2 ABG HCO3 ABG O2 Saturation ABG Base Excess ABG Hemoglobin Oxyhemoglobin Sodium Potassium 3.0 L Chloride Carbon Dioxide BUN 30 H Creatinine 3.1 H Glucose POC Glucose 112 H 120 H Lactic Acid Calcium 10.8 H Ionized Calcium Phosphorus Magnesium Iron TIBC Ferritin Total Bilirubin Direct Bilirubin AST ALT Alkaline Phosphatase Total Creatine Kinase CK-MB (CK-2) Troponin T C-Reactive Protein Total Protein Albumin Triglycerides LDL Cholesterol Direct HDL Cholesterol Free T4 PTH Intact Urine WBC (Auto) Urine Creatinine Salicylates Acetaminophen Crossmatch 04/14/19 04/14/19 04/15/19 11:56 23:28 05:11 WBC 13.0 H RBC 2.93 L Hgb 8.6 L Hct 26.5 L MCV MCHC RDW 16.5 H Plt Count Lymph % (Auto) 12.2 L [place] % (Auto) 9.1 H Lymph # [place] # 1.2 H Seg Neutrophils % 77.6 H Seg Neuts % (Manual) Lymphocytes % (Manual) Monocytes % (Manual) Nucleated RBC % Seg Neutrophils # 10.1 H Seg Neutrophils # Man Lymphocytes # (Manual) Monocytes # (Manual) PT INR D-Dimer Heparin Anti-Xa Level POC ABG pH ABG pH POC ABG pCO2 POC ABG pO2 ABG pO2 ABG HCO3 ABG O2 Saturation ABG Base Excess ABG Hemoglobin Oxyhemoglobin Sodium Potassium Chloride Carbon Dioxide BUN Creatinine Glucose POC Glucose 109 H 112 H Lactic Acid Calcium Ionized Calcium Phosphorus Magnesium Iron TIBC Ferritin Total Bilirubin Direct Bilirubin AST ALT Alkaline Phosphatase Total Creatine Kinase CK-MB (CK-2) Troponin T C-Reactive Protein Total Protein Albumin Triglycerides LDL Cholesterol Direct HDL Cholesterol Free T4 PTH Intact Urine WBC (Auto) Urine Creatinine Salicylates Acetaminophen Crossmatch 04/15/19 04/15/19 04/15/19 05:11 05:31 18:03 WBC RBC Hgb Hct MCV MCHC RDW Plt Count Lymph % (Auto) [place] % (Auto) Lymph # [place] # Seg Neutrophils % Seg Neuts % (Manual) Lymphocytes % (Manual) Monocytes % (Manual) Nucleated RBC % Seg Neutrophils # Seg Neutrophils # Man Lymphocytes # (Manual) Monocytes # (Manual) PT INR D-Dimer Heparin Anti-Xa Level POC ABG pH ABG pH POC ABG pCO2 POC ABG pO2 ABG pO2 ABG HCO3 ABG O2 Saturation ABG Base Excess ABG Hemoglobin Oxyhemoglobin Sodium Potassium 3.2 L Chloride Carbon Dioxide BUN 44 H Creatinine 3.6 H Glucose 106 H POC Glucose 110 H 121 H Lactic Acid Calcium 12.0 H Ionized Calcium Phosphorus 5.00 H Magnesium Iron TIBC Ferritin Total Bilirubin Direct Bilirubin AST ALT Alkaline Phosphatase Total Creatine Kinase CK-MB (CK-2) Troponin T C-Reactive Protein Total Protein Albumin Triglycerides LDL Cholesterol Direct HDL Cholesterol Free T4 PTH Intact Urine WBC (Auto) Urine Creatinine Salicylates Acetaminophen Crossmatch 04/16/19 04/16/19 04/17/19 05:07 05:07 04:15 WBC 12.6 H RBC 3.12 L Hgb 9.0 L Hct 28.2 L MCV MCHC RDW 16.6 H Plt Count Lymph % (Auto) 10.3 L [place] % (Auto) 9.8 H Lymph # [place] # 1.2 H Seg Neutrophils % 78.2 H Seg Neuts % (Manual) Lymphocytes % (Manual) Monocytes % (Manual) Nucleated RBC % Seg Neutrophils # 9.9 H Seg Neutrophils # Man Lymphocytes # (Manual) Monocytes # (Manual) PT INR D-Dimer Heparin Anti-Xa Level POC ABG pH ABG pH POC ABG pCO2 POC ABG pO2 ABG pO2 ABG HCO3 ABG O2 Saturation ABG Base Excess ABG Hemoglobin Oxyhemoglobin Sodium 147 H 150 H Potassium 3.5 L 3.1 L Chloride Carbon Dioxide 32 H BUN 54 H 65 H Creatinine 3.8 H 4.0 H Glucose 102 H 107 H POC Glucose Lactic Acid Calcium 11.7 H 12.0 H Ionized Calcium Phosphorus 5.40 H Magnesium Iron TIBC Ferritin Total Bilirubin Direct Bilirubin AST ALT Alkaline Phosphatase Total Creatine Kinase CK-MB (CK-2) Troponin T C-Reactive Protein 7.10 H Total Protein Albumin Triglycerides LDL Cholesterol Direct HDL Cholesterol Free T4 PTH Intact Urine WBC (Auto) Urine Creatinine Salicylates Acetaminophen Crossmatch 04/17/19 04/17/19 04/17/19 04:15 06:05 12:49 WBC 15.8 H RBC 3.32 L Hgb 9.5 L Hct 29.9 L MCV MCHC RDW 16.9 H Plt Count Lymph % (Auto) 12.6 L [place] % (Auto) 11.1 H Lymph # [place] # 1.7 H Seg Neutrophils % 74.7 H Seg Neuts % (Manual) Lymphocytes % (Manual) Monocytes % (Manual) Nucleated RBC % Seg Neutrophils # 11.8 H Seg Neutrophils # Man Lymphocytes # (Manual) Monocytes # (Manual) PT INR D-Dimer Heparin Anti-Xa Level POC ABG pH ABG pH POC ABG pCO2 POC ABG pO2 ABG pO2 ABG HCO3 ABG O2 Saturation ABG Base Excess ABG Hemoglobin Oxyhemoglobin Sodium Potassium Chloride Carbon Dioxide BUN Creatinine Glucose POC Glucose 111 H 108 H Lactic Acid Calcium Ionized Calcium Phosphorus Magnesium Iron TIBC Ferritin Total Bilirubin Direct Bilirubin AST ALT Alkaline Phosphatase Total Creatine Kinase CK-MB (CK-2) Troponin T C-Reactive Protein Total Protein Albumin Triglycerides LDL Cholesterol Direct HDL Cholesterol Free T4 PTH Intact Urine WBC (Auto) Urine Creatinine Salicylates Acetaminophen Crossmatch 04/18/19 04/18/19 04/18/19 00:23 04:41 04:41 WBC 19.4 H RBC 3.03 L Hgb 8.6 L Hct 27.5 L MCV MCHC 31 L RDW 16.9 H Plt Count Lymph % (Auto) [place] % (Auto) Lymph # [place] # Seg Neutrophils % Seg Neuts % (Manual) Lymphocytes % (Manual) Monocytes % (Manual) Nucleated RBC % Seg Neutrophils # Seg Neutrophils # Man Lymphocytes # (Manual) Monocytes # (Manual) PT INR D-Dimer Heparin Anti-Xa Level POC ABG pH ABG pH POC ABG pCO2 POC ABG pO2 ABG pO2 ABG HCO3 ABG O2 Saturation ABG Base Excess ABG Hemoglobin Oxyhemoglobin Sodium 152 H Potassium 3.0 L Chloride Carbon Dioxide BUN 80 H Creatinine 4.3 H Glucose 103 H POC Glucose 115 H Lactic Acid Calcium 11.4 H Ionized Calcium Phosphorus Magnesium Iron TIBC Ferritin Total Bilirubin Direct Bilirubin AST ALT Alkaline Phosphatase Total Creatine Kinase CK-MB (CK-2) Troponin T C-Reactive Protein Total Protein Albumin Triglycerides LDL Cholesterol Direct HDL Cholesterol Free T4 PTH Intact Urine WBC (Auto) Urine Creatinine Salicylates Acetaminophen Crossmatch 04/18/19 06:17 WBC RBC Hgb Hct MCV MCHC RDW Plt Count Lymph % (Auto) [place] % (Auto) Lymph # [place] # Seg Neutrophils % Seg Neuts % (Manual) Lymphocytes % (Manual) Monocytes % (Manual) Nucleated RBC % Seg Neutrophils # Seg Neutrophils # Man Lymphocytes # (Manual) Monocytes # (Manual) PT INR D-Dimer Heparin Anti-Xa Level POC ABG pH ABG pH POC ABG pCO2 POC ABG pO2 ABG pO2 ABG HCO3 ABG O2 Saturation ABG Base Excess ABG Hemoglobin Oxyhemoglobin Sodium Potassium Chloride Carbon Dioxide BUN Creatinine Glucose POC Glucose 124 H Lactic Acid Calcium Ionized Calcium Phosphorus Magnesium Iron TIBC Ferritin Total Bilirubin Direct Bilirubin AST ALT Alkaline Phosphatase Total Creatine Kinase CK-MB (CK-2) Troponin T C-Reactive Protein Total Protein Albumin Triglycerides LDL Cholesterol Direct HDL Cholesterol Free T4 PTH Intact Urine WBC (Auto) Urine Creatinine Salicylates Acetaminophen Crossmatch
--- NOTE | 2019-04-18 15:29 | Progress Note ---
Assessment and Plan Cont present cardiac management. Consider PEG placement per primary team. No systemic AC regarding AFib in setting of anemia, thrombocytopenia, GI bleed. Can consider ischemic evaluation (stress test) once medically stabilized. The patient has been seen in conjunction with Dr. KONRAD Nunez who agrees with the assessment and plan of care. - Patient Problems (1) Cardiopulmonary arrest Current Visit: Yes Status: Acute (2) Acute respiratory failure Current Visit: Yes Status: Acute Qualifiers: Respiratory failure complication: hypoxia Qualified Code(s): J96.01 - Acute respiratory failure with hypoxia (3) Paroxysmal atrial fibrillation with RVR Current Visit: Yes Status: Acute (4) SVT (supraventricular tachycardia) Current Visit: Yes Status: Acute (5) Torsades de pointes Current Visit: Yes Status: Acute (6) Ventricular tachycardia Current Visit: Yes Status: Acute (7) Encephalopathy Current Visit: Yes Status: Acute (8) Septic shock Current Visit: Yes Status: Acute (9) Aspiration pneumonia Current Visit: Yes Status: Acute Qualifiers: Aspiration pneumonia type: unspecified (10) Meningitis Current Visit: Yes Status: Suspected (11) Cellulitis Current Visit: Yes Status: Acute (12) Acute renal failure Current Visit: Yes Status: Acute Qualifiers: Acute renal failure type: with acute tubular necrosis Qualified Code(s): N17.0 - Acute kidney failure with tubular necrosis (13) GI bleed Current Visit: Yes Status: Acute (14) Anemia Current Visit: Yes Status: Acute (15) Thrombocytopenia Current Visit: Yes Status: Resolved (16) DVT (deep venous thrombosis) Current Visit: Yes Status: Acute Subjective Date of service: 04/18/19 Principal diagnosis: anemia - neck DVT Interval history: pt resting in bed, awake and alert. in SR. Objective Last Vital Signs Temp 98.6 F 04/18/19 12:00 Pulse 89 04/18/19 15:00 Resp 31 H 04/18/19 11:00 BP 116/66 04/18/19 15:00 Pulse Ox 93 04/18/19 15:00 - Physical Examination General: No Apparent Distress HEENT: Positive: EOMI, Normocephaly, Mucus Membranes Moist Neck: Positive: neck supple, trachea midline Cardiac: Positive: Reg Rate and Rhythm, S1/S2 Lungs: Positive: Decreased Breath Sounds Neuro: Positive: Grossly Intact, Other (awake, alert and oriented) Abdomen: Positive: Soft, Active Bowel Sounds. Negative: Tender /Rectal: Other (deferred) Skin: Positive: Clear. Negative: Rash Musculoskeletal: Normal Range of Motion Extremities: Present: normal. Absent: edema - Labs and Meds CBC 04/18/19 Range/Units 04:41 WBC 19.4 H (4.5-11.0) K/mm3 RBC 3.03 L (3.65-5.03) M/mm3 Hgb 8.6 L (11.8-15.2) gm/dl Hct 27.5 L (35.5-45.6) % Plt Count 230 (140-440) K/mm3 Comprehensive Metabolic Panel 04/18/19 Range/Units 04:41 Sodium 152 H (137-145) mmol/L Potassium 3.0 L (3.6-5.0) mmol/L Chloride 103.7 (98-107) mmol/L Carbon Dioxide 29 (22-30) mmol/L BUN 80 H (9-20) mg/dL Creatinine 4.3 H (0.8-1.5) mg/dL Glucose 103 H (75-100) mg/dL Calcium 11.4 H (8.4-10.2) mg/dL - Imaging and Cardiology Echo: report reviewed ( EF 40-45%, impaired relaxation. ) - EKG Sinus rhythms and dysrhythmias: sinus rhythm - Allied health notes Allied health notes reviewed: nursing
[2019-04-18] MEDS: EPOETIN ALFA 20,000 UNIT/1 ML INJ SUB-Q PRN (17:52)
--- NOTE | 2019-04-18 18:00 | Progress Note ---
Assessment and Plan 1. Acute kidney injury: Vasomotor RUBEN in the setting of shock / volume depletion / Rhabdo. Baseline renal function is unknown. CT abdomen was negative for obstructive nephropathy. Patient was started on hemodialysis on 03/18/19 due to worsening metabolic acidosis and hyperkalemia. Monitor renal function. Renal prognosis is guarded. Avoid nephrotoxic agents. Meds dosage based on GFR. Creatinine level continue to increase. Hemodialysis today. Hemodialysis: 03/18, 03/19, 03/20, 03/22, 03/23, 03/24, 03/26, 03/28, 03/29, 03/31, 04/02, 04/04, 04/06, 04/09, 04/11, 04/13, 04/18. 2. FEN: Hypokalemia, replete K. Hypernatremia, monitor. Metabolic acidosis, improved. Volume overload, improving. Hypercalcemia, monitor. Low Ca bath. Monitor lytes. 3. Septic shock: Currently off pressors. Recurrent fever. ID recommended to remove the dialysis catheter. 4. Rhabdomyolysis: Improved. 5. A.fib with RVR: On Amiodarone and Metoprolol. Followed by Cards. 6. Respiratory failure: Extubated. On BIPAP intermittently. 7. Severe anemia: S/p PRBC. On Epogen. 8. Elevated transaminases: Improved. 9. Encephalopathy. Examination: General appearance: well-developed, appears stated age, obese, NG tube noted HEENT: Atraumatic EYES: Pupils reacting to light Neck: supple Respiratory: CTAB, decreased breath sounds Cardiology: regular, S1S2 heard, no murmur Gastrointestinal: obese, BS heard, not tender Integumentary: no rash noted Neurologic: follows command, conversing, some confusion is noted Ext: L UE edematous Hemodialysis access: R IJ temp catheter Subjective Date of service: 04/18/19 Principal diagnosis: anemia - neck DVT Interval history: Patient was seen and examined at the bedside. Objective - Vital Signs Vital signs: Vital Signs - 12hr 04/18/19 04/18/19 04/18/19 07:00 08:00 08:08 Temperature 98.5 F Pulse Rate 95 H 94 H 93 H Respiratory 29 H 23 Rate Blood Pressure 123/71 114/80 114/80 O2 Sat by Pulse 98 99 Oximetry O2 Sat by Pulse Oximetry [ Anterior Bilateral Throughout] 04/18/19 04/18/19 04/18/19 08:59 09:00 10:00 Temperature Pulse Rate 81 85 Respiratory 35 H 30 H Rate Blood Pressure 121/61 123/64 O2 Sat by Pulse 98 98 99 Oximetry O2 Sat by Pulse Oximetry [ Anterior Bilateral Throughout] 04/18/19 04/18/19 04/18/19 11:00 12:00 13:00 Temperature 98.6 F Pulse Rate 85 87 88 Respiratory 31 H Rate Blood Pressure 117/66 127/62 111/67 O2 Sat by Pulse 97 98 97 Oximetry O2 Sat by Pulse Oximetry [ Anterior Bilateral Throughout] 04/18/19 04/18/19 04/18/19 14:01 14:37 15:00 Temperature 98.6 F Pulse Rate 90 98 H 89 Respiratory 24 Rate Blood Pressure 111/67 118/68 116/66 O2 Sat by Pulse 97 93 Oximetry O2 Sat by Pulse 100 Oximetry [ Anterior Bilateral Throughout] 04/18/19 04/18/19 04/18/19 15:30 15:45 16:00 Temperature Pulse Rate 91 H 89 88 Respiratory Rate Blood Pressure 121/69 123/70 117/69 O2 Sat by Pulse Oximetry O2 Sat by Pulse Oximetry [ Anterior Bilateral Throughout] 04/18/19 04/18/19 04/18/19 16:01 16:15 16:26 Temperature 98.3 F Pulse Rate 88 88 Respiratory Rate Blood Pressure 118/62 112/72 O2 Sat by Pulse 100 Oximetry O2 Sat by Pulse Oximetry [ Anterior Bilateral Throughout] 04/18/19 04/18/19 04/18/19 16:30 16:45 17:00 Temperature Pulse Rate 88 86 86 Respiratory Rate Blood Pressure 110/67 100/66 115/63 O2 Sat by Pulse Oximetry O2 Sat by Pulse Oximetry [ Anterior Bilateral Throughout] 04/18/19 04/18/19 04/18/19 17:01 17:15 17:30 Temperature Pulse Rate 86 86 86 Respiratory Rate Blood Pressure 115/63 120/70 118/66 O2 Sat by Pulse 100 Oximetry O2 Sat by Pulse Oximetry [ Anterior Bilateral Throughout] 04/18/19 17:45 Temperature Pulse Rate 86 Respiratory Rate Blood Pressure 114/68 O2 Sat by Pulse Oximetry O2 Sat by Pulse Oximetry [ Anterior Bilateral Throughout] - Lab 04/18/19 04:41 04/18/19 04:41 Most recent lab results ABG pH 7.388 pH Units (7.350-7.450) 04/06/19 05:20 ABG pCO2 38.5 mm Hg 04/06/19 05:20 ABG pO2 104.0 mm Hg (80.0-90.0) H 04/06/19 05:20 ABG HCO3 22.6 mmol/L (20.0-26.0) 04/06/19 05:20 ABG O2 Saturation 97.8 % (95.0-99.0) 04/06/19 05:20 Calcium 11.4 mg/dL (8.4-10.2) H 04/18/19 04:41 Phosphorus 5.40 mg/dL (2.5-4.5) H 04/17/19 04:15 Magnesium 1.90 mg/dL (1.7-2.3) 03/31/19 15:07 Urine Creatinine 106.6 mg/dL (0.1-20.0) H 03/17/19 16:05 Urine Sodium 95 mmol/L 03/17/19 16:05 Medications & Allergies - Medications Allergies/Adverse Reactions: Allergies No Known Allergies Allergy (Unverified 03/16/19 17:17) Home Medications: Home Medications Medication Instructions Recorded Confirmed Last Taken Type Unobtainable 03/18/19 03/18/19 Unknown History Active Medications: Generic Name Dose Route Start Last Admin Trade Name Freq PRN Reason Stop Dose Admin Acetaminophen 650 mg 04/02/19 23:26 04/17/19 22:45 Tylenol PO 650 mg Q4H PRN Administration Pain, Mild (1-3),temp>100.5 Albuterol 2.5 mg 03/29/19 13:08 Proventil IH Q4HRT PRN Shortness Of Breath Amiodarone HCl 200 mg 04/15/19 22:00 04/18/19 09:25 Cordarone PO 200 mg BID PAOLO Administration Bacitracin 1 applic 04/17/19 08:00 Antibiotic Oint TP Q4H PRN upper lip sore/open Dextrose 50 gm 04/17/19 08:00 D50w (25gm) Vial IV Q1H PRN Hypoglycemia Epoetin Jet 20,000 unit 03/31/19 10:15 04/18/19 17:52 Procrit SUB-Q 20,000 unit NEYMAR PRN Administration hemodialysis Hydralazine HCl 20 mg 04/14/19 03:00 04/14/19 03:11 Apresoline IV 20 mg Q4H PRN Administration hypertemsion Hydrophilic Ointment 1 applic 03/16/19 15:50 Vaseline Lip Therapy TP Q2HR PRN Dry Lips Aztreonam 2 gm in 100 mls @ 100 mls/hr 04/17/19 18:00 04/18/19 09:26 Azactam/Ns 2 Gm/100 Ml IV 100 mls/hr Q24HR PAOLO Administration Protocol Linezolid 600 mg in 300 mls @ 300 mls/hr 04/17/19 17:00 04/18/19 16:54 Zyvox 600mg/300ml IV 300 mls/hr Q12H PAOLO Administration Protocol Sodium Chloride 100 mls @ 999 mls/hr 04/18/19 07:30 Nacl 0.9% IV NEYMAR PRN Hypotension Lansoprazole 30 mg 04/11/19 10:00 04/18/19 09:24 Prevacid Solutab FEEDTUBE 30 mg BID PAOLO Administration Metoprolol Tartrate 5 mg 04/16/19 22:24 04/17/19 14:25 Lopressor IV 5 mg Q6H PRN Administration For HR >120 Metoprolol Tartrate 25 mg 04/17/19 20:00 04/18/19 14:37 Lopressor PO 25 mg TID PAOLO Administration Multi-Ingred Cream/Lotion/Oil/Oint 1 applic 03/16/19 15:50 03/19/19 20:10 Artificial Tears Ophth Oint OU 1 applic Q4HR PRN Administration Dry Eye(s) Sodium Hypochlorite 1 applic 04/18/19 11:00 04/18/19 12:36 Dakin's Half Strength TP 1 applicatio BID PAOLO Administration
[2019-04-18] MEDS: ACETAMINOPHEN 325 MG TAB PO PRN (21:25)
--- NOTE | 2019-04-18 23:07 | Progress Note ---
Assessment and Plan atient more awake and talking. But Patient appears still confused. Patient Presently is on 2L O2. O2 saturation is 98%. No acute respiratory distress. Patient afebrile and has mild leukocytosis. Patient is on Zyvax and Azactam.. - Patient Problems (1) Acute respiratory failure Current Visit: Yes Status: Acute Qualifiers: Respiratory failure complication: hypoxia Qualified Code(s): J96.01 - Acute respiratory failure with hypoxia Plan to address problem: Patient on 2L O2. BiPAP standby in the room. Albuterol/atrovent aerosol treatments q 6 hours. Continue Prevacid. Recommend DVT prophylaxis. SCDs (2) Altered mental status Current Visit: Yes Status: Acute Qualifiers: Altered mental status type: unspecified Qualified Code(s): R41.82 - Altered mental status, unspecified Plan to address problem: Management as per primary care and neurology. (3) Atrial fibrillation with RVR Current Visit: Yes Status: Acute Plan to address problem: Management as per cardiology. (4) Cardiopulmonary arrest Current Visit: Yes Status: Acute Plan to address problem: Patient resucitated. Presently on 2L O2. (5) Acute renal failure Current Visit: Yes Status: Acute Qualifiers: Acute renal failure type: with acute tubular necrosis Qualified Code(s): N17.0 - Acute kidney failure with tubular necrosis Plan to address problem: Management as per nephrology. (6) Aspiration pneumonia Current Visit: Yes Status: Acute Qualifiers: Aspiration pneumonia type: unspecified Plan to address problem: Patient is on Azactam and zyvox. (7) GI bleed Current Visit: Yes Status: Acute Plan to address problem: Management as per gastroenterology. Subjective Date of service: 04/18/19 Principal diagnosis: anemia - neck DVT Interval history: Patient more awake and talking. But Patient appears still confused. Patient Presently is on 2L O2. O2 saturation is 98%. No acute respiratory distress. Patient afebrile and has mild leukocytosis. Patient is on zyvox and azactam. Objective Vital Signs - 12hr 04/18/19 04/18/19 04/18/19 12:00 13:00 14:01 Temperature 98.6 F Pulse Rate 87 88 90 Pulse Rate [ From Monitor] Respiratory Rate Blood Pressure 127/62 111/67 111/67 O2 Sat by Pulse 98 97 97 Oximetry O2 Sat by Pulse Oximetry [ Anterior Bilateral Throughout] 04/18/19 04/18/19 04/18/19 14:37 15:00 15:30 Temperature 98.6 F Pulse Rate 98 H 89 91 H Pulse Rate [ From Monitor] Respiratory 24 Rate Blood Pressure 118/68 116/66 121/69 O2 Sat by Pulse 93 Oximetry O2 Sat by Pulse 100 Oximetry [ Anterior Bilateral Throughout] 04/18/19 04/18/19 04/18/19 15:45 16:00 16:01 Temperature Pulse Rate 89 88 88 Pulse Rate [ From Monitor] Respiratory Rate Blood Pressure 123/70 117/69 118/62 O2 Sat by Pulse 100 Oximetry O2 Sat by Pulse Oximetry [ Anterior Bilateral Throughout] 04/18/19 04/18/19 04/18/19 16:15 16:26 16:30 Temperature 98.3 F Pulse Rate 88 88 Pulse Rate [ From Monitor] Respiratory Rate Blood Pressure 112/72 110/67 O2 Sat by Pulse Oximetry O2 Sat by Pulse Oximetry [ Anterior Bilateral Throughout] 04/18/19 04/18/19 04/18/19 16:45 17:00 17:01 Temperature Pulse Rate 86 86 86 Pulse Rate [ From Monitor] Respiratory Rate Blood Pressure 100/66 115/63 115/63 O2 Sat by Pulse 100 Oximetry O2 Sat by Pulse Oximetry [ Anterior Bilateral Throughout] 04/18/19 04/18/19 04/18/19 17:15 17:30 17:45 Temperature Pulse Rate 86 86 86 Pulse Rate [ From Monitor] Respiratory Rate Blood Pressure 120/70 118/66 114/68 O2 Sat by Pulse Oximetry O2 Sat by Pulse Oximetry [ Anterior Bilateral Throughout] 04/18/19 04/18/19 04/18/19 18:00 18:15 18:30 Temperature Pulse Rate 83 85 87 Pulse Rate [ From Monitor] Respiratory Rate Blood Pressure 111/69 116/70 108/72 O2 Sat by Pulse 100 Oximetry O2 Sat by Pulse Oximetry [ Anterior Bilateral Throughout] 04/18/19 04/18/19 04/18/19 18:45 19:00 19:15 Temperature Pulse Rate 85 86 86 Pulse Rate [ From Monitor] Respiratory Rate Blood Pressure 108/66 106/66 100/67 O2 Sat by Pulse 98 Oximetry O2 Sat by Pulse Oximetry [ Anterior Bilateral Throughout] 04/18/19 04/18/19 04/18/19 19:30 20:00 20:22 Temperature 98.8 F Pulse Rate 86 92 H Pulse Rate [ 93 H From Monitor] Respiratory 20 Rate Blood Pressure 109/64 124/69 O2 Sat by Pulse 94 98 Oximetry O2 Sat by Pulse 99 Oximetry [ Anterior Bilateral Throughout] 04/18/19 04/18/19 04/18/19 21:00 21:25 22:00 Temperature Pulse Rate 98 H 95 H 82 Pulse Rate [ From Monitor] Respiratory 12 Rate Blood Pressure 122/68 129/68 119/70 O2 Sat by Pulse 98 99 Oximetry O2 Sat by Pulse Oximetry [ Anterior Bilateral Throughout] 04/18/19 23:00 Temperature Pulse Rate 85 Pulse Rate [ From Monitor] Respiratory 24 Rate Blood Pressure 121/67 O2 Sat by Pulse 98 Oximetry O2 Sat by Pulse Oximetry [ Anterior Bilateral Throughout] Constitutional: no acute distress, alert, other (Confused.) Eyes: icteric ENT: oropharynx moist, other (extubated) Neck: supple, no lymphadenopathy, no JVD, other (large neck circumference) Effort: mildly labored Ascultation: Bilateral: diminished breath sounds, rales, rhonchi (scant) Percussion: Bilateral: not dull Cardiovascular: irregular rhythm, other ( S1,S2) Gastrointestinal: normoactive bowel sounds, soft, non-tender Integumentary: normal Extremities: no cyanosis, pink and warm, pulses normal, no ischemia or petechiae Neurologic: normal mental status, non-focal exam (grossly), pupils equal and round, CN II-XII normal, other (very weak) Psychiatric: mood appropriate, affect normal CBC and BMP: 04/18/19 04:41 04/18/19 04:41 ABG, PT/INR, D-dimer: ABG POC ABG pH 7.401 (7.35-7.45) 04/07/19 12:57 ABG pH 7.388 pH Units (7.350-7.450) 04/06/19 05:20 POC ABG pCO2 41.5 (35-45) 04/07/19 12:57 ABG pCO2 38.5 mm Hg 04/06/19 05:20 POC ABG pO2 107 (80-105) H 04/07/19 12:57 ABG pO2 104.0 mm Hg (80.0-90.0) H 04/06/19 05:20 POC ABG HCO3 25.7 (22-26 mml/L) 04/07/19 12:57 POC ABG Total CO2 27 (23-27mmol/L) 04/07/19 12:57 POC ABG O2 Sat 98 04/07/19 12:57 ABG O2 Saturation 97.8 % (95.0-99.0) 04/06/19 05:20 PT/INR, D-dimer PT 15.3 Sec. (12.2-14.9) H 03/29/19 11:48 INR 1.24 (0.87-1.13) H 03/29/19 11:48 D-Dimer 4845.98 ng/mlDDU (0-234) H 03/28/19 12:00 Abnormal lab findings: Abnormal Labs 03/16/19 03/16/19 03/16/19 15:32 16:03 16:05 WBC 27.0 H RBC 5.55 H Hgb 15.7 H Hct 47.1 H MCV MCHC RDW Plt Count 75 L Lymph % (Auto) [place] % (Auto) Lymph # [place] # Seg Neutrophils % Seg Neuts % (Manual) 85.0 H Lymphocytes % (Manual) 2.0 L Monocytes % (Manual) Nucleated RBC % Seg Neutrophils # Seg Neutrophils # Man 23.0 H Lymphocytes # (Manual) 0.5 L Monocytes # (Manual) PT INR D-Dimer Heparin Anti-Xa Level POC ABG pH ABG pH POC ABG pCO2 POC ABG pO2 ABG pO2 ABG HCO3 ABG O2 Saturation ABG Base Excess ABG Hemoglobin Oxyhemoglobin Sodium 127 L Potassium Chloride 87.8 L Carbon Dioxide 17 L BUN 49 H Creatinine 5.8 H Glucose 150 H POC Glucose 118 H Lactic Acid Calcium 6.6 L Ionized Calcium Phosphorus Magnesium 1.10 L Iron TIBC Ferritin Total Bilirubin Direct Bilirubin AST ALT Alkaline Phosphatase Total Creatine Kinase 99285 H CK-MB (CK-2) Troponin T C-Reactive Protein Total Protein Albumin Triglycerides LDL Cholesterol Direct HDL Cholesterol Free T4 PTH Intact Urine WBC (Auto) Urine Creatinine Salicylates Acetaminophen Crossmatch 03/16/19 03/16/19 03/16/19 16:59 17:05 17:05 WBC RBC Hgb Hct MCV MCHC RDW Plt Count Lymph % (Auto) [place] % (Auto) Lymph # [place] # Seg Neutrophils % Seg Neuts % (Manual) Lymphocytes % (Manual) Monocytes % (Manual) Nucleated RBC % Seg Neutrophils # Seg Neutrophils # Man Lymphocytes # (Manual) Monocytes # (Manual) PT INR D-Dimer Heparin Anti-Xa Level POC ABG pH 7.297 L ABG pH POC ABG pCO2 33.0 L POC ABG pO2 ABG pO2 ABG HCO3 ABG O2 Saturation ABG Base Excess ABG Hemoglobin Oxyhemoglobin Sodium Potassium Chloride Carbon Dioxide BUN Creatinine Glucose POC Glucose Lactic Acid Calcium Ionized Calcium Phosphorus Magnesium Iron TIBC Ferritin Total Bilirubin Direct Bilirubin AST ALT Alkaline Phosphatase Total Creatine Kinase 85885 H CK-MB (CK-2) 83.1 H Troponin T C-Reactive Protein Total Protein Albumin Triglycerides LDL Cholesterol Direct HDL Cholesterol Free T4 0.72 L PTH Intact Urine WBC (Auto) Urine Creatinine Salicylates Acetaminophen Crossmatch 03/16/19 03/16/19 03/16/19 17:05 17:05 17:05 WBC RBC Hgb Hct MCV MCHC RDW Plt Count Lymph % (Auto) [place] % (Auto) Lymph # [place] # Seg Neutrophils % Seg Neuts % (Manual) Lymphocytes % (Manual) Monocytes % (Manual) Nucleated RBC % Seg Neutrophils # Seg Neutrophils # Man Lymphocytes # (Manual) Monocytes # (Manual) PT INR D-Dimer Heparin Anti-Xa Level POC ABG pH ABG pH POC ABG pCO2 POC ABG pO2 ABG pO2 ABG HCO3 ABG O2 Saturation ABG Base Excess ABG Hemoglobin Oxyhemoglobin Sodium Potassium Chloride Carbon Dioxide BUN Creatinine Glucose POC Glucose Lactic Acid 5.10 H* Calcium Ionized Calcium Phosphorus Magnesium Iron TIBC Ferritin Total Bilirubin Direct Bilirubin AST ALT Alkaline Phosphatase Total Creatine Kinase CK-MB (CK-2) Troponin T C-Reactive Protein Total Protein Albumin Triglycerides LDL Cholesterol Direct HDL Cholesterol Free T4 PTH Intact Urine WBC (Auto) Urine Creatinine Salicylates < 0.3 L Acetaminophen < 5.0 L Crossmatch 03/16/19 03/16/19 03/16/19 17:05 17:05 20:35 WBC RBC Hgb Hct MCV MCHC RDW Plt Count Lymph % (Auto) [place] % (Auto) Lymph # [place] # Seg Neutrophils % Seg Neuts % (Manual) Lymphocytes % (Manual) Monocytes % (Manual) Nucleated RBC % Seg Neutrophils # Seg Neutrophils # Man Lymphocytes # (Manual) Monocytes # (Manual) PT 15.9 H INR 1.30 H D-Dimer Heparin Anti-Xa Level POC ABG pH ABG pH POC ABG pCO2 POC ABG pO2 ABG pO2 ABG HCO3 ABG O2 Saturation ABG Base Excess ABG Hemoglobin Oxyhemoglobin Sodium Potassium Chloride Carbon Dioxide BUN Creatinine Glucose POC Glucose Lactic Acid 3.30 H* Calcium Ionized Calcium Phosphorus Magnesium Iron TIBC Ferritin Total Bilirubin 6.20 H Direct Bilirubin 5.9 H AST 800 H ALT 120 H Alkaline Phosphatase Total Creatine Kinase CK-MB (CK-2) Troponin T C-Reactive Protein Total Protein 4.4 L Albumin 2.4 L Triglycerides LDL Cholesterol Direct HDL Cholesterol Free T4 PTH Intact Urine WBC (Auto) Urine Creatinine Salicylates Acetaminophen Crossmatch 03/16/19 03/16/19 03/16/19 21:45 22:32 Unknown WBC RBC Hgb Hct MCV MCHC RDW Plt Count Lymph % (Auto) [place] % (Auto) Lymph # [place] # Seg Neutrophils % Seg Neuts % (Manual) Lymphocytes % (Manual) Monocytes % (Manual) Nucleated RBC % Seg Neutrophils # Seg Neutrophils # Man Lymphocytes # (Manual) Monocytes # (Manual) PT INR D-Dimer Heparin Anti-Xa Level POC ABG pH ABG pH POC ABG pCO2 POC ABG pO2 ABG pO2 ABG HCO3 ABG O2 Saturation ABG Base Excess ABG Hemoglobin Oxyhemoglobin Sodium Potassium Chloride Carbon Dioxide BUN Creatinine Glucose POC Glucose Lactic Acid 3.30 H* 3.00 H* Calcium Ionized Calcium Phosphorus Magnesium Iron TIBC Ferritin Total Bilirubin Direct Bilirubin AST ALT Alkaline Phosphatase Total Creatine Kinase CK-MB (CK-2) Troponin T 0.047 H D C-Reactive Protein Total Protein Albumin Triglycerides 395 H LDL Cholesterol Direct 10 L HDL Cholesterol 7 L Free T4 PTH Intact Urine WBC (Auto) Urine Creatinine Salicylates Acetaminophen Crossmatch 03/17/19 03/17/19 03/17/19 03:45 03:45 03:45 WBC RBC Hgb Hct MCV MCHC RDW Plt Count Lymph % (Auto) [place] % (Auto) Lymph # [place] # Seg Neutrophils % Seg Neuts % (Manual) Lymphocytes % (Manual) Monocytes % (Manual) Nucleated RBC % Seg Neutrophils # Seg Neutrophils # Man Lymphocytes # (Manual) Monocytes # (Manual) PT INR D-Dimer Heparin Anti-Xa Level POC ABG pH ABG pH POC ABG pCO2 POC ABG pO2 ABG pO2 ABG HCO3 ABG O2 Saturation ABG Base Excess ABG Hemoglobin Oxyhemoglobin Sodium 131 L Potassium Chloride 88.9 L Carbon Dioxide BUN 53 H Creatinine 7.1 H Glucose POC Glucose Lactic Acid 4.10 H* Calcium 5.4 L* D Ionized Calcium Phosphorus 7.30 H Magnesium 1.60 L Iron TIBC Ferritin Total Bilirubin 5.90 H Direct Bilirubin AST 801 H ALT 109 H Alkaline Phosphatase Total Creatine Kinase 00118 H 51502 H CK-MB (CK-2) 41.5 H Troponin T 0.054 H C-Reactive Protein Total Protein 4.5 L Albumin 2.0 L Triglycerides LDL Cholesterol Direct HDL Cholesterol Free T4 PTH Intact Urine WBC (Auto) Urine Creatinine Salicylates Acetaminophen Crossmatch 03/17/19 03/17/19 03/17/19 05:47 07:16 07:16 WBC RBC Hgb Hct MCV MCHC RDW Plt Count Lymph % (Auto) [place] % (Auto) Lymph # [place] # Seg Neutrophils % Seg Neuts % (Manual) Lymphocytes % (Manual) Monocytes % (Manual) Nucleated RBC % Seg Neutrophils # Seg Neutrophils # Man Lymphocytes # (Manual) Monocytes # (Manual) PT INR D-Dimer Heparin Anti-Xa Level POC ABG pH 7.193 L ABG pH POC ABG pCO2 45.2 H POC ABG pO2 65 L ABG pO2 ABG HCO3 ABG O2 Saturation ABG Base Excess ABG Hemoglobin Oxyhemoglobin Sodium Potassium Chloride Carbon Dioxide BUN Creatinine Glucose POC Glucose Lactic Acid 5.50 H* Calcium Ionized Calcium Phosphorus Magnesium Iron TIBC Ferritin Total Bilirubin Direct Bilirubin AST ALT Alkaline Phosphatase Total Creatine Kinase 74020 H CK-MB (CK-2) 54.3 H Troponin T 0.058 H C-Reactive Protein Total Protein Albumin Triglycerides LDL Cholesterol Direct HDL Cholesterol Free T4 PTH Intact Urine WBC (Auto) Urine Creatinine Salicylates Acetaminophen Crossmatch 03/17/19 03/17/19 03/17/19 11:52 12:51 13:01 WBC RBC Hgb Hct MCV MCHC RDW Plt Count Lymph % (Auto) [place] % (Auto) Lymph # [place] # Seg Neutrophils % Seg Neuts % (Manual) Lymphocytes % (Manual) Monocytes % (Manual) Nucleated RBC % Seg Neutrophils # Seg Neutrophils # Man Lymphocytes # (Manual) Monocytes # (Manual) PT INR D-Dimer Heparin Anti-Xa Level POC ABG pH 7.154 L ABG pH POC ABG pCO2 34.3 L POC ABG pO2 73 L ABG pO2 ABG HCO3 ABG O2 Saturation ABG Base Excess ABG Hemoglobin Oxyhemoglobin Sodium Potassium Chloride Carbon Dioxide BUN Creatinine Glucose POC Glucose 60 L Lactic Acid 8.20 H* Calcium Ionized Calcium Phosphorus Magnesium Iron TIBC Ferritin Total Bilirubin Direct Bilirubin AST ALT Alkaline Phosphatase Total Creatine Kinase CK-MB (CK-2) Troponin T C-Reactive Protein Total Protein Albumin Triglycerides LDL Cholesterol Direct HDL Cholesterol Free T4 PTH Intact Urine WBC (Auto) Urine Creatinine Salicylates Acetaminophen Crossmatch 03/17/19 03/17/19 03/17/19 14:37 14:37 14:37 WBC 29.3 H RBC Hgb Hct MCV MCHC RDW 15.8 H Plt Count 45 L Lymph % (Auto) [place] % (Auto) Lymph # [place] # Seg Neutrophils % Seg Neuts % (Manual) 81.0 H Lymphocytes % (Manual) 1.0 L Monocytes % (Manual) 15.0 H Nucleated RBC % Seg Neutrophils # Seg Neutrophils # Man 23.7 H Lymphocytes # (Manual) 0.3 L Monocytes # (Manual) 4.4 H PT INR D-Dimer Heparin Anti-Xa Level POC ABG pH ABG pH POC ABG pCO2 POC ABG pO2 ABG pO2 ABG HCO3 ABG O2 Saturation ABG Base Excess ABG Hemoglobin Oxyhemoglobin Sodium Potassium Chloride Carbon Dioxide BUN Creatinine Glucose POC Glucose Lactic Acid 4.90 H* Calcium Ionized Calcium Phosphorus Magnesium Iron TIBC Ferritin Total Bilirubin Direct Bilirubin AST ALT Alkaline Phosphatase Total Creatine Kinase CK-MB (CK-2) Troponin T C-Reactive Protein 24.90 H Total Protein Albumin Triglycerides LDL Cholesterol Direct HDL Cholesterol Free T4 PTH Intact Urine WBC (Auto) Urine Creatinine Salicylates Acetaminophen Crossmatch 03/17/19 03/17/19 03/17/19 16:05 16:05 17:02 WBC RBC Hgb Hct MCV MCHC RDW Plt Count Lymph % (Auto) [place] % (Auto) Lymph # [place] # Seg Neutrophils % Seg Neuts % (Manual) Lymphocytes % (Manual) Monocytes % (Manual) Nucleated RBC % Seg Neutrophils # Seg Neutrophils # Man Lymphocytes # (Manual) Monocytes # (Manual) PT INR D-Dimer Heparin Anti-Xa Level POC ABG pH 7.183 L ABG pH POC ABG pCO2 POC ABG pO2 65 L ABG pO2 ABG HCO3 ABG O2 Saturation ABG Base Excess ABG Hemoglobin Oxyhemoglobin Sodium Potassium Chloride Carbon Dioxide BUN Creatinine Glucose POC Glucose Lactic Acid Calcium Ionized Calcium Phosphorus Magnesium Iron TIBC Ferritin Total Bilirubin Direct Bilirubin AST ALT Alkaline Phosphatase Total Creatine Kinase CK-MB (CK-2) Troponin T C-Reactive Protein Total Protein Albumin Triglycerides LDL Cholesterol Direct HDL Cholesterol Free T4 PTH Intact Urine WBC (Auto) 30.0 H Urine Creatinine 106.6 H Salicylates Acetaminophen Crossmatch 03/18/19 03/18/19 03/18/19 05:12 05:16 05:53 WBC RBC Hgb Hct MCV MCHC RDW Plt Count Lymph % (Auto) [place] % (Auto) Lymph # [place] # Seg Neutrophils % Seg Neuts % (Manual) Lymphocytes % (Manual) Monocytes % (Manual) Nucleated RBC % Seg Neutrophils # Seg Neutrophils # Man Lymphocytes # (Manual) Monocytes # (Manual) PT INR D-Dimer Heparin Anti-Xa Level POC ABG pH 7.257 L ABG pH POC ABG pCO2 31.6 L POC ABG pO2 69 L ABG pO2 ABG HCO3 ABG O2 Saturation ABG Base Excess ABG Hemoglobin Oxyhemoglobin Sodium Potassium Chloride Carbon Dioxide BUN Creatinine Glucose POC Glucose 141 H Lactic Acid 5.00 H* Calcium Ionized Calcium Phosphorus Magnesium Iron TIBC Ferritin Total Bilirubin Direct Bilirubin AST ALT Alkaline Phosphatase Total Creatine Kinase CK-MB (CK-2) Troponin T C-Reactive Protein Total Protein Albumin Triglycerides LDL Cholesterol Direct HDL Cholesterol Free T4 PTH Intact Urine WBC (Auto) Urine Creatinine Salicylates Acetaminophen Crossmatch 03/18/19 03/18/19 03/18/19 06:57 08:40 08:40 WBC 31.7 H RBC Hgb Hct MCV MCHC RDW 15.5 H Plt Count 35 L Lymph % (Auto) [place] % (Auto) Lymph # [place] # Seg Neutrophils % Seg Neuts % (Manual) Lymphocytes % (Manual) Monocytes % (Manual) Nucleated RBC % Seg Neutrophils # Seg Neutrophils # Man Lymphocytes # (Manual) Monocytes # (Manual) PT INR D-Dimer Heparin Anti-Xa Level POC ABG pH ABG pH POC ABG pCO2 POC ABG pO2 ABG pO2 ABG HCO3 ABG O2 Saturation ABG Base Excess ABG Hemoglobin Oxyhemoglobin Sodium 132 L Potassium 5.5 H D Chloride 88.5 L Carbon Dioxide 18 L BUN 71 H Creatinine 8.1 H Glucose 205 H POC Glucose Lactic Acid 5.00 H* Calcium 4.1 L* D Ionized Calcium Phosphorus Magnesium 2.40 H Iron TIBC Ferritin Total Bilirubin 7.50 H Direct Bilirubin AST 1088 H ALT 159 H Alkaline Phosphatase 190 H Total Creatine Kinase 353438 H CK-MB (CK-2) Troponin T C-Reactive Protein Total Protein 4.7 L Albumin 1.8 L Triglycerides LDL Cholesterol Direct HDL Cholesterol Free T4 PTH Intact Urine WBC (Auto) Urine Creatinine Salicylates Acetaminophen Crossmatch 03/18/19 03/18/19 03/18/19 12:33 12:50 13:19 WBC RBC Hgb Hct MCV MCHC RDW Plt Count Lymph % (Auto) [place] % (Auto) Lymph # [place] # Seg Neutrophils % Seg Neuts % (Manual) Lymphocytes % (Manual) Monocytes % (Manual) Nucleated RBC % Seg Neutrophils # Seg Neutrophils # Man Lymphocytes # (Manual) Monocytes # (Manual) PT INR D-Dimer Heparin Anti-Xa Level POC ABG pH 7.282 L ABG pH POC ABG pCO2 POC ABG pO2 67 L ABG pO2 ABG HCO3 ABG O2 Saturation ABG Base Excess ABG Hemoglobin Oxyhemoglobin Sodium Potassium Chloride Carbon Dioxide BUN Creatinine Glucose POC Glucose 129 H Lactic Acid 3.30 H* Calcium Ionized Calcium Phosphorus Magnesium Iron TIBC Ferritin Total Bilirubin Direct Bilirubin AST ALT Alkaline Phosphatase Total Creatine Kinase CK-MB (CK-2) Troponin T C-Reactive Protein Total Protein Albumin Triglycerides LDL Cholesterol Direct HDL Cholesterol Free T4 PTH Intact Urine WBC (Auto) Urine Creatinine Salicylates Acetaminophen Crossmatch 03/18/19 03/18/19 03/18/19 13:19 16:50 18:11 WBC RBC Hgb Hct MCV MCHC RDW Plt Count Lymph % (Auto) [place] % (Auto) Lymph # [place] # Seg Neutrophils % Seg Neuts % (Manual) Lymphocytes % (Manual) Monocytes % (Manual) Nucleated RBC % Seg Neutrophils # Seg Neutrophils # Man Lymphocytes # (Manual) Monocytes # (Manual) PT INR D-Dimer Heparin Anti-Xa Level POC ABG pH ABG pH POC ABG pCO2 POC ABG pO2 59 L ABG pO2 ABG HCO3 ABG O2 Saturation ABG Base Excess ABG Hemoglobin Oxyhemoglobin Sodium Potassium Chloride Carbon Dioxide BUN Creatinine Glucose POC Glucose 151 H Lactic Acid Calcium 4.2 L* Ionized Calcium Phosphorus Magnesium Iron TIBC Ferritin Total Bilirubin Direct Bilirubin AST ALT Alkaline Phosphatase Total Creatine Kinase 604601 H CK-MB (CK-2) Troponin T C-Reactive Protein Total Protein Albumin Triglycerides LDL Cholesterol Direct HDL Cholesterol Free T4 PTH Intact Urine WBC (Auto) Urine Creatinine Salicylates Acetaminophen Crossmatch 03/18/19 03/18/19 03/19/19 18:20 23:39 01:42 WBC RBC Hgb Hct MCV MCHC RDW Plt Count Lymph % (Auto) [place] % (Auto) Lymph # [place] # Seg Neutrophils % Seg Neuts % (Manual) Lymphocytes % (Manual) Monocytes % (Manual) Nucleated RBC % Seg Neutrophils # Seg Neutrophils # Man Lymphocytes # (Manual) Monocytes # (Manual) PT INR D-Dimer Heparin Anti-Xa Level POC ABG pH 7.345 L ABG pH 7.285 L POC ABG pCO2 POC ABG pO2 59 L ABG pO2 44.0 L ABG HCO3 ABG O2 Saturation 70.9 L ABG Base Excess -5.7 L ABG Hemoglobin 11.9 L Oxyhemoglobin 69.6 L Sodium Potassium Chloride Carbon Dioxide BUN Creatinine Glucose POC Glucose 152 H Lactic Acid Calcium Ionized Calcium Phosphorus Magnesium Iron TIBC Ferritin Total Bilirubin Direct Bilirubin AST ALT Alkaline Phosphatase Total Creatine Kinase CK-MB (CK-2) Troponin T C-Reactive Protein Total Protein Albumin Triglycerides LDL Cholesterol Direct HDL Cholesterol Free T4 PTH Intact Urine WBC (Auto) Urine Creatinine Salicylates Acetaminophen Crossmatch 03/19/19 03/19/19 03/19/19 04:00 04:00 05:35 WBC 36.5 H RBC Hgb Hct MCV MCHC RDW 15.8 H Plt Count 35 L Lymph % (Auto) [place] % (Auto) Lymph # [place] # Seg Neutrophils % Seg Neuts % (Manual) Lymphocytes % (Manual) Monocytes % (Manual) Nucleated RBC % Seg Neutrophils # Seg Neutrophils # Man Lymphocytes # (Manual) Monocytes # (Manual) PT INR D-Dimer Heparin Anti-Xa Level POC ABG pH ABG pH 7.265 L POC ABG pCO2 POC ABG pO2 ABG pO2 35.4 L* ABG HCO3 ABG O2 Saturation 54.4 L ABG Base Excess -6.7 L ABG Hemoglobin 12.9 L Oxyhemoglobin 53.4 L Sodium 132 L Potassium 5.7 H Chloride 89.8 L Carbon Dioxide 19 L BUN 62 H Creatinine 6.4 H Glucose 151 H POC Glucose Lactic Acid Calcium 5.2 L* D Ionized Calcium Phosphorus Magnesium Iron TIBC Ferritin Total Bilirubin 7.80 H Direct Bilirubin AST 682 H ALT 130 H Alkaline Phosphatase 167 H Total Creatine Kinase CK-MB (CK-2) Troponin T C-Reactive Protein Total Protein 4.8 L Albumin 2.3 L Triglycerides LDL Cholesterol Direct HDL Cholesterol Free T4 PTH Intact Urine WBC (Auto) Urine Creatinine Salicylates Acetaminophen Crossmatch 03/19/19 03/19/19 03/19/19 05:49 09:16 09:50 WBC RBC Hgb Hct MCV MCHC RDW Plt Count Lymph % (Auto) [place] % (Auto) Lymph # [place] # Seg Neutrophils % Seg Neuts % (Manual) Lymphocytes % (Manual) Monocytes % (Manual) Nucleated RBC % Seg Neutrophils # Seg Neutrophils # Man Lymphocytes # (Manual) Monocytes # (Manual) PT INR D-Dimer Heparin Anti-Xa Level POC ABG pH 7.222 L ABG pH POC ABG pCO2 56.6 H POC ABG pO2 ABG pO2 ABG HCO3 ABG O2 Saturation ABG Base Excess ABG Hemoglobin Oxyhemoglobin Sodium Potassium Chloride Carbon Dioxide BUN Creatinine Glucose POC Glucose 154 H Lactic Acid 2.70 H* Calcium Ionized Calcium Phosphorus Magnesium Iron TIBC Ferritin Total Bilirubin Direct Bilirubin AST ALT Alkaline Phosphatase Total Creatine Kinase CK-MB (CK-2) Troponin T C-Reactive Protein Total Protein Albumin Triglycerides LDL Cholesterol Direct HDL Cholesterol Free T4 PTH Intact Urine WBC (Auto) Urine Creatinine Salicylates Acetaminophen Crossmatch 03/19/19 03/19/19 03/19/19 09:50 11:28 17:58 WBC RBC Hgb Hct MCV MCHC RDW Plt Count Lymph % (Auto) [place] % (Auto) Lymph # [place] # Seg Neutrophils % Seg Neuts % (Manual) Lymphocytes % (Manual) Monocytes % (Manual) Nucleated RBC % Seg Neutrophils # Seg Neutrophils # Man Lymphocytes # (Manual) Monocytes # (Manual) PT INR D-Dimer Heparin Anti-Xa Level POC ABG pH 7.250 L ABG pH POC ABG pCO2 52.6 H POC ABG pO2 ABG pO2 ABG HCO3 ABG O2 Saturation ABG Base Excess ABG Hemoglobin Oxyhemoglobin Sodium Potassium Chloride Carbon Dioxide BUN Creatinine Glucose POC Glucose 160 H Lactic Acid Calcium Ionized Calcium Phosphorus Magnesium Iron TIBC Ferritin Total Bilirubin Direct Bilirubin AST ALT Alkaline Phosphatase Total Creatine Kinase 75718 H CK-MB (CK-2) Troponin T C-Reactive Protein Total Protein Albumin Triglycerides LDL Cholesterol Direct HDL Cholesterol Free T4 PTH Intact Urine WBC (Auto) Urine Creatinine Salicylates Acetaminophen Crossmatch 03/19/19 03/19/19 03/20/19 19:48 21:03 02:16 WBC RBC Hgb Hct MCV MCHC RDW Plt Count Lymph % (Auto) [place] % (Auto) Lymph # [place] # Seg Neutrophils % Seg Neuts % (Manual) Lymphocytes % (Manual) Monocytes % (Manual) Nucleated RBC % Seg Neutrophils # Seg Neutrophils # Man Lymphocytes # (Manual) Monocytes # (Manual) PT INR D-Dimer Heparin Anti-Xa Level POC ABG pH 7.279 L ABG pH POC ABG pCO2 50.3 H POC ABG pO2 129 H ABG pO2 ABG HCO3 ABG O2 Saturation ABG Base Excess ABG Hemoglobin Oxyhemoglobin Sodium Potassium Chloride Carbon Dioxide BUN Creatinine Glucose POC Glucose 119 H 119 H Lactic Acid Calcium Ionized Calcium Phosphorus Magnesium Iron TIBC Ferritin Total Bilirubin Direct Bilirubin AST ALT Alkaline Phosphatase Total Creatine Kinase CK-MB (CK-2) Troponin T C-Reactive Protein Total Protein Albumin Triglycerides LDL Cholesterol Direct HDL Cholesterol Free T4 PTH Intact Urine WBC (Auto) Urine Creatinine Salicylates Acetaminophen Crossmatch 03/20/19 03/20/19 03/20/19 04:23 05:05 09:30 WBC 36.3 H RBC Hgb Hct MCV MCHC RDW 15.5 H Plt Count 29 L Lymph % (Auto) [place] % (Auto) Lymph # [place] # Seg Neutrophils % Seg Neuts % (Manual) Lymphocytes % (Manual) Monocytes % (Manual) Nucleated RBC % Seg Neutrophils # Seg Neutrophils # Man Lymphocytes # (Manual) Monocytes # (Manual) PT INR D-Dimer Heparin Anti-Xa Level POC ABG pH ABG pH POC ABG pCO2 POC ABG pO2 280 H ABG pO2 ABG HCO3 ABG O2 Saturation ABG Base Excess ABG Hemoglobin Oxyhemoglobin Sodium Potassium Chloride Carbon Dioxide BUN Creatinine Glucose POC Glucose 115 H Lactic Acid Calcium Ionized Calcium Phosphorus Magnesium Iron TIBC Ferritin Total Bilirubin Direct Bilirubin AST ALT Alkaline Phosphatase Total Creatine Kinase CK-MB (CK-2) Troponin T C-Reactive Protein Total Protein Albumin Triglycerides LDL Cholesterol Direct HDL Cholesterol Free T4 PTH Intact Urine WBC (Auto) Urine Creatinine Salicylates Acetaminophen Crossmatch 03/20/19 03/20/19 03/20/19 09:30 09:30 11:34 WBC RBC Hgb Hct MCV MCHC RDW Plt Count Lymph % (Auto) [place] % (Auto) Lymph # [place] # Seg Neutrophils % Seg Neuts % (Manual) Lymphocytes % (Manual) Monocytes % (Manual) Nucleated RBC % Seg Neutrophils # Seg Neutrophils # Man Lymphocytes # (Manual) Monocytes # (Manual) PT INR D-Dimer Heparin Anti-Xa Level POC ABG pH ABG pH POC ABG pCO2 POC ABG pO2 ABG pO2 ABG HCO3 ABG O2 Saturation ABG Base Excess ABG Hemoglobin Oxyhemoglobin Sodium 131 L Potassium Chloride 92.3 L Carbon Dioxide 20 L BUN 68 H Creatinine 6.1 H Glucose 164 H POC Glucose 141 H Lactic Acid Calcium 5.3 L* Ionized Calcium Phosphorus Magnesium Iron TIBC Ferritin Total Bilirubin 9.50 H Direct Bilirubin AST 381 H ALT 116 H Alkaline Phosphatase 255 H Total Creatine Kinase 88547 H CK-MB (CK-2) Troponin T C-Reactive Protein Total Protein 5.1 L Albumin 2.3 L Triglycerides LDL Cholesterol Direct HDL Cholesterol Free T4 PTH Intact Urine WBC (Auto) Urine Creatinine Salicylates Acetaminophen Crossmatch 03/20/19 03/20/19 03/20/19 14:41 14:45 18:50 WBC RBC Hgb Hct MCV MCHC RDW Plt Count Lymph % (Auto) [place] % (Auto) Lymph # [place] # Seg Neutrophils % Seg Neuts % (Manual) Lymphocytes % (Manual) Monocytes % (Manual) Nucleated RBC % Seg Neutrophils # Seg Neutrophils # Man Lymphocytes # (Manual) Monocytes # (Manual) PT INR D-Dimer Heparin Anti-Xa Level POC ABG pH ABG pH POC ABG pCO2 POC ABG pO2 ABG pO2 ABG HCO3 ABG O2 Saturation ABG Base Excess ABG Hemoglobin Oxyhemoglobin Sodium Potassium Chloride Carbon Dioxide BUN Creatinine Glucose POC Glucose 117 H Lactic Acid 2.90 H* Calcium Ionized Calcium Phosphorus Magnesium Iron TIBC Ferritin Total Bilirubin Direct Bilirubin AST ALT Alkaline Phosphatase Total Creatine Kinase CK-MB (CK-2) Troponin T C-Reactive Protein 13.30 H Total Protein Albumin Triglycerides LDL Cholesterol Direct HDL Cholesterol Free T4 PTH Intact Urine WBC (Auto) Urine Creatinine Salicylates Acetaminophen Crossmatch 03/20/19 03/21/19 03/21/19 21:55 04:26 04:26 WBC 37.8 H RBC Hgb Hct MCV MCHC RDW 15.4 H Plt Count 36 L Lymph % (Auto) [place] % (Auto) Lymph # [place] # Seg Neutrophils % Seg Neuts % (Manual) 93.0 H Lymphocytes % (Manual) 3.0 L Monocytes % (Manual) Nucleated RBC % 1.0 H Seg Neutrophils # 34.6 H Seg Neutrophils # Man 35.2 H Lymphocytes # (Manual) 1.1 L Monocytes # (Manual) PT INR D-Dimer Heparin Anti-Xa Level POC ABG pH ABG pH POC ABG pCO2 POC ABG pO2 ABG pO2 ABG HCO3 ABG O2 Saturation ABG Base Excess ABG Hemoglobin Oxyhemoglobin Sodium 131 L Potassium Chloride 90.7 L Carbon Dioxide 21 L BUN 69 H Creatinine 5.7 H Glucose 170 H POC Glucose 128 H Lactic Acid Calcium 6.1 L D Ionized Calcium Phosphorus Magnesium Iron TIBC Ferritin Total Bilirubin 9.50 H Direct Bilirubin AST 308 H ALT 124 H Alkaline Phosphatase 327 H Total Creatine Kinase 19648 H CK-MB (CK-2) Troponin T C-Reactive Protein Total Protein 5.7 L Albumin 2.6 L Triglycerides LDL Cholesterol Direct HDL Cholesterol Free T4 PTH Intact Urine WBC (Auto) Urine Creatinine Salicylates Acetaminophen Crossmatch 03/21/19 03/21/19 03/21/19 05:17 05:39 08:29 WBC RBC Hgb Hct MCV MCHC RDW Plt Count Lymph % (Auto) [place] % (Auto) Lymph # [place] # Seg Neutrophils % Seg Neuts % (Manual) Lymphocytes % (Manual) Monocytes % (Manual) Nucleated RBC % Seg Neutrophils # Seg Neutrophils # Man Lymphocytes # (Manual) Monocytes # (Manual) PT INR D-Dimer Heparin Anti-Xa Level POC ABG pH ABG pH POC ABG pCO2 POC ABG pO2 209 H ABG pO2 ABG HCO3 ABG O2 Saturation ABG Base Excess ABG Hemoglobin Oxyhemoglobin Sodium Potassium Chloride Carbon Dioxide BUN Creatinine Glucose POC Glucose 145 H Lactic Acid Calcium Ionized Calcium Phosphorus Magnesium Iron TIBC Ferritin Total Bilirubin Direct Bilirubin AST ALT Alkaline Phosphatase Total Creatine Kinase 38311 H CK-MB (CK-2) Troponin T C-Reactive Protein Total Protein Albumin Triglycerides LDL Cholesterol Direct HDL Cholesterol Free T4 PTH Intact Urine WBC (Auto) Urine Creatinine Salicylates Acetaminophen Crossmatch 03/21/19 03/21/19 03/21/19 08:29 11:43 12:00 WBC RBC Hgb Hct MCV MCHC RDW Plt Count Lymph % (Auto) [place] % (Auto) Lymph # [place] # Seg Neutrophils % Seg Neuts % (Manual) Lymphocytes % (Manual) Monocytes % (Manual) Nucleated RBC % Seg Neutrophils # Seg Neutrophils # Man Lymphocytes # (Manual) Monocytes # (Manual) PT INR D-Dimer Heparin Anti-Xa Level POC ABG pH ABG pH POC ABG pCO2 POC ABG pO2 ABG pO2 ABG HCO3 ABG O2 Saturation ABG Base Excess ABG Hemoglobin Oxyhemoglobin Sodium Potassium Chloride Carbon Dioxide BUN Creatinine Glucose POC Glucose 123 H Lactic Acid 2.60 H* 2.20 H* Calcium Ionized Calcium Phosphorus Magnesium Iron TIBC Ferritin Total Bilirubin Direct Bilirubin AST ALT Alkaline Phosphatase Total Creatine Kinase CK-MB (CK-2) Troponin T C-Reactive Protein Total Protein Albumin Triglycerides LDL Cholesterol Direct HDL Cholesterol Free T4 PTH Intact Urine WBC (Auto) Urine Creatinine Salicylates Acetaminophen Crossmatch 03/21/19 03/21/19 03/21/19 14:11 18:28 19:32 WBC RBC Hgb Hct MCV MCHC RDW Plt Count Lymph % (Auto) [place] % (Auto) Lymph # [place] # Seg Neutrophils % Seg Neuts % (Manual) Lymphocytes % (Manual) Monocytes % (Manual) Nucleated RBC % Seg Neutrophils # Seg Neutrophils # Man Lymphocytes # (Manual) Monocytes # (Manual) PT INR D-Dimer Heparin Anti-Xa Level POC ABG pH 7.293 L ABG pH POC ABG pCO2 POC ABG pO2 ABG pO2 ABG HCO3 ABG O2 Saturation ABG Base Excess ABG Hemoglobin Oxyhemoglobin Sodium Potassium Chloride Carbon Dioxide BUN Creatinine Glucose POC Glucose 153 H Lactic Acid 2.10 H* Calcium Ionized Calcium Phosphorus Magnesium Iron TIBC Ferritin Total Bilirubin Direct Bilirubin AST ALT Alkaline Phosphatase Total Creatine Kinase CK-MB (CK-2) Troponin T C-Reactive Protein Total Protein Albumin Triglycerides LDL Cholesterol Direct HDL Cholesterol Free T4 PTH Intact Urine WBC (Auto) Urine Creatinine Salicylates Acetaminophen Crossmatch 03/21/19 03/22/19 03/22/19 23:38 05:08 05:51 WBC RBC Hgb Hct MCV MCHC RDW Plt Count Lymph % (Auto) [place] % (Auto) Lymph # [place] # Seg Neutrophils % Seg Neuts % (Manual) Lymphocytes % (Manual) Monocytes % (Manual) Nucleated RBC % Seg Neutrophils # Seg Neutrophils # Man Lymphocytes # (Manual) Monocytes # (Manual) PT INR D-Dimer Heparin Anti-Xa Level POC ABG pH 7.283 L ABG pH POC ABG pCO2 POC ABG pO2 53 L ABG pO2 ABG HCO3 ABG O2 Saturation ABG Base Excess ABG Hemoglobin Oxyhemoglobin Sodium Potassium Chloride Carbon Dioxide BUN Creatinine Glucose POC Glucose 149 H 131 H Lactic Acid Calcium Ionized Calcium Phosphorus Magnesium Iron TIBC Ferritin Total Bilirubin Direct Bilirubin AST ALT Alkaline Phosphatase Total Creatine Kinase CK-MB (CK-2) Troponin T C-Reactive Protein Total Protein Albumin Triglycerides LDL Cholesterol Direct HDL Cholesterol Free T4 PTH Intact Urine WBC (Auto) Urine Creatinine Salicylates Acetaminophen Crossmatch 03/22/19 03/22/19 03/22/19 08:00 08:00 18:19 WBC 36.7 H RBC Hgb 11.0 L Hct 33.5 L MCV MCHC RDW 15.5 H Plt Count 43 L Lymph % (Auto) [place] % (Auto) Lymph # [place] # Seg Neutrophils % Seg Neuts % (Manual) 87.0 H Lymphocytes % (Manual) 7.0 L Monocytes % (Manual) Nucleated RBC % Seg Neutrophils # Seg Neutrophils # Man 31.9 H Lymphocytes # (Manual) Monocytes # (Manual) PT INR D-Dimer Heparin Anti-Xa Level POC ABG pH ABG pH POC ABG pCO2 46.4 H POC ABG pO2 108 H ABG pO2 ABG HCO3 ABG O2 Saturation ABG Base Excess ABG Hemoglobin Oxyhemoglobin Sodium 132 L Potassium 5.6 H Chloride 89.6 L Carbon Dioxide 20 L BUN 101 H Creatinine 7.4 H Glucose 124 H POC Glucose Lactic Acid Calcium 5.2 L* Ionized Calcium Phosphorus Magnesium Iron TIBC Ferritin Total Bilirubin 2.80 H Direct Bilirubin AST 119 H ALT 86 H Alkaline Phosphatase 245 H Total Creatine Kinase CK-MB (CK-2) Troponin T C-Reactive Protein Total Protein 5.6 L Albumin 2.5 L Triglycerides LDL Cholesterol Direct HDL Cholesterol Free T4 PTH Intact Urine WBC (Auto) Urine Creatinine Salicylates Acetaminophen Crossmatch 03/22/19 03/23/19 03/23/19 20:37 04:49 05:28 WBC 35.9 H RBC Hgb 10.8 L Hct 33.2 L MCV MCHC RDW 15.5 H Plt Count 49 L Lymph % (Auto) [place] % (Auto) Lymph # [place] # Seg Neutrophils % Seg Neuts % (Manual) 81.0 H Lymphocytes % (Manual) 3.5 L Monocytes % (Manual) Nucleated RBC % Seg Neutrophils # Seg Neutrophils # Man 29.1 H Lymphocytes # (Manual) Monocytes # (Manual) 1.4 H PT INR D-Dimer Heparin Anti-Xa Level POC ABG pH 7.296 L ABG pH POC ABG pCO2 46.2 H POC ABG pO2 ABG pO2 ABG HCO3 ABG O2 Saturation ABG Base Excess ABG Hemoglobin Oxyhemoglobin Sodium 129 L Potassium 5.2 H Chloride 91.1 L Carbon Dioxide BUN 91 H Creatinine 6.6 H Glucose 190 H POC Glucose Lactic Acid Calcium 5.3 L* Ionized Calcium Phosphorus Magnesium Iron TIBC Ferritin Total Bilirubin 1.80 H Direct Bilirubin AST 80 H ALT 62 H Alkaline Phosphatase 209 H Total Creatine Kinase 9758 H CK-MB (CK-2) Troponin T C-Reactive Protein Total Protein 5.2 L Albumin 2.2 L Triglycerides LDL Cholesterol Direct HDL Cholesterol Free T4 PTH Intact Urine WBC (Auto) Urine Creatinine Salicylates Acetaminophen Crossmatch 03/23/19 03/23/19 03/23/19 05:28 05:31 11:33 WBC 29.7 H RBC 3.59 L Hgb 10.1 L Hct 31.1 L MCV MCHC RDW 15.4 H Plt Count 47 L Lymph % (Auto) [place] % (Auto) Lymph # [place] # Seg Neutrophils % Seg Neuts % (Manual) 89.0 H Lymphocytes % (Manual) 6.0 L Monocytes % (Manual) Nucleated RBC % 1.0 H Seg Neutrophils # Seg Neutrophils # Man 26.4 H Lymphocytes # (Manual) Monocytes # (Manual) PT INR D-Dimer Heparin Anti-Xa Level POC ABG pH ABG pH POC ABG pCO2 POC ABG pO2 ABG pO2 ABG HCO3 ABG O2 Saturation ABG Base Excess ABG Hemoglobin Oxyhemoglobin Sodium Potassium Chloride Carbon Dioxide BUN Creatinine Glucose POC Glucose 122 H 113 H Lactic Acid Calcium Ionized Calcium Phosphorus Magnesium Iron TIBC Ferritin Total Bilirubin Direct Bilirubin AST ALT Alkaline Phosphatase Total Creatine Kinase CK-MB (CK-2) Troponin T C-Reactive Protein Total Protein Albumin Triglycerides LDL Cholesterol Direct HDL Cholesterol Free T4 PTH Intact Urine WBC (Auto) Urine Creatinine Salicylates Acetaminophen Crossmatch 03/23/19 03/24/19 03/24/19 17:47 00:00 04:50 WBC 35.0 H RBC Hgb 10.4 L Hct 32.4 L MCV MCHC RDW Plt Count 60 L Lymph % (Auto) [place] % (Auto) Lymph # [place] # Seg Neutrophils % Seg Neuts % (Manual) 93.0 H Lymphocytes % (Manual) 5.0 L Monocytes % (Manual) Nucleated RBC % 7.0 H Seg Neutrophils # Seg Neutrophils # Man 32.6 H Lymphocytes # (Manual) Monocytes # (Manual) PT INR D-Dimer Heparin Anti-Xa Level POC ABG pH ABG pH POC ABG pCO2 POC ABG pO2 ABG pO2 ABG HCO3 ABG O2 Saturation ABG Base Excess ABG Hemoglobin Oxyhemoglobin Sodium Potassium Chloride Carbon Dioxide BUN Creatinine Glucose POC Glucose 111 H 108 H Lactic Acid Calcium Ionized Calcium Phosphorus Magnesium Iron TIBC Ferritin Total Bilirubin Direct Bilirubin AST ALT Alkaline Phosphatase Total Creatine Kinase CK-MB (CK-2) Troponin T C-Reactive Protein Total Protein Albumin Triglycerides LDL Cholesterol Direct HDL Cholesterol Free T4 PTH Intact Urine WBC (Auto) Urine Creatinine Salicylates Acetaminophen Crossmatch 03/24/19 03/24/19 03/24/19 04:50 05:06 12:55 WBC RBC Hgb Hct MCV MCHC RDW Plt Count Lymph % (Auto) [place] % (Auto) Lymph # [place] # Seg Neutrophils % Seg Neuts % (Manual) Lymphocytes % (Manual) Monocytes % (Manual) Nucleated RBC % Seg Neutrophils # Seg Neutrophils # Man Lymphocytes # (Manual) Monocytes # (Manual) PT INR D-Dimer Heparin Anti-Xa Level POC ABG pH ABG pH POC ABG pCO2 POC ABG pO2 ABG pO2 ABG HCO3 ABG O2 Saturation ABG Base Excess ABG Hemoglobin Oxyhemoglobin Sodium 134 L Potassium 5.1 H Chloride 95.3 L Carbon Dioxide 21 L BUN 85 H Creatinine 6.4 H Glucose 109 H POC Glucose 112 H 110 H Lactic Acid Calcium 5.8 L* Ionized Calcium Phosphorus Magnesium Iron TIBC Ferritin Total Bilirubin Direct Bilirubin AST ALT Alkaline Phosphatase Total Creatine Kinase 5747 H CK-MB (CK-2) Troponin T C-Reactive Protein Total Protein Albumin Triglycerides LDL Cholesterol Direct HDL Cholesterol Free T4 PTH Intact Urine WBC (Auto) Urine Creatinine Salicylates Acetaminophen Crossmatch 03/24/19 03/25/19 03/25/19 23:29 05:00 05:00 WBC RBC Hgb Hct MCV MCHC RDW Plt Count Lymph % (Auto) [place] % (Auto) Lymph # [place] # Seg Neutrophils % Seg Neuts % (Manual) Lymphocytes % (Manual) Monocytes % (Manual) Nucleated RBC % Seg Neutrophils # Seg Neutrophils # Man Lymphocytes # (Manual) Monocytes # (Manual) PT INR D-Dimer Heparin Anti-Xa Level POC ABG pH ABG pH POC ABG pCO2 POC ABG pO2 ABG pO2 ABG HCO3 ABG O2 Saturation ABG Base Excess ABG Hemoglobin Oxyhemoglobin Sodium 133 L Potassium Chloride 94.0 L Carbon Dioxide 21 L BUN 81 H Creatinine 6.4 H Glucose POC Glucose 109 H Lactic Acid Calcium 5.5 L* Ionized Calcium Phosphorus Magnesium Iron TIBC Ferritin Total Bilirubin Direct Bilirubin AST 80 H ALT Alkaline Phosphatase 202 H Total Creatine Kinase 3589 H CK-MB (CK-2) Troponin T C-Reactive Protein Total Protein 5.3 L Albumin 2.4 L Triglycerides LDL Cholesterol Direct HDL Cholesterol Free T4 PTH Intact 329.9 H Urine WBC (Auto) Urine Creatinine Salicylates Acetaminophen Crossmatch 03/25/19 03/25/19 03/26/19 05:00 06:30 04:30 WBC 23.3 H RBC 3.61 L Hgb 10.2 L Hct 31.2 L MCV MCHC RDW Plt Count 57 L Lymph % (Auto) [place] % (Auto) Lymph # [place] # Seg Neutrophils % Seg Neuts % (Manual) 92.0 H Lymphocytes % (Manual) 6.0 L Monocytes % (Manual) Nucleated RBC % Seg Neutrophils # Seg Neutrophils # Man 21.4 H Lymphocytes # (Manual) Monocytes # (Manual) PT INR D-Dimer Heparin Anti-Xa Level POC ABG pH ABG pH 7.326 L POC ABG pCO2 POC ABG pO2 ABG pO2 109.5 H 137.4 H ABG HCO3 18.8 L 18.6 L ABG O2 Saturation ABG Base Excess -4.4 L -6.8 L ABG Hemoglobin 10.1 L 9.9 L Oxyhemoglobin Sodium Potassium Chloride Carbon Dioxide BUN Creatinine Glucose POC Glucose Lactic Acid Calcium Ionized Calcium Phosphorus Magnesium Iron TIBC Ferritin Total Bilirubin Direct Bilirubin AST ALT Alkaline Phosphatase Total Creatine Kinase CK-MB (CK-2) Troponin T C-Reactive Protein Total Protein Albumin Triglycerides LDL Cholesterol Direct HDL Cholesterol Free T4 PTH Intact Urine WBC (Auto) Urine Creatinine Salicylates Acetaminophen Crossmatch 03/26/19 03/26/19 03/26/19 23:22 Unknown Unknown WBC 19.5 H RBC 3.44 L Hgb 9.8 L Hct 29.9 L MCV MCHC RDW Plt Count 85 L Lymph % (Auto) [place] % (Auto) Lymph # [place] # Seg Neutrophils % Seg Neuts % (Manual) 95.0 H Lymphocytes % (Manual) 3.0 L Monocytes % (Manual) Nucleated RBC % Seg Neutrophils # Seg Neutrophils # Man 18.5 H Lymphocytes # (Manual) 0.6 L Monocytes # (Manual) PT INR D-Dimer Heparin Anti-Xa Level POC ABG pH ABG pH POC ABG pCO2 POC ABG pO2 ABG pO2 ABG HCO3 ABG O2 Saturation ABG Base Excess ABG Hemoglobin Oxyhemoglobin Sodium 135 L Potassium 5.2 H D Chloride 92.2 L Carbon Dioxide 18 L BUN 109 H Creatinine 8.5 H Glucose 117 H POC Glucose 69 L Lactic Acid Calcium 4.5 L* D Ionized Calcium Phosphorus Magnesium Iron TIBC Ferritin Total Bilirubin Direct Bilirubin AST ALT Alkaline Phosphatase Total Creatine Kinase 4527 H CK-MB (CK-2) Troponin T C-Reactive Protein Total Protein Albumin Triglycerides LDL Cholesterol Direct HDL Cholesterol Free T4 PTH Intact Urine WBC (Auto) Urine Creatinine Salicylates Acetaminophen Crossmatch 03/27/19 03/27/19 03/27/19 04:30 04:30 09:00 WBC 19.2 H RBC 3.42 L Hgb 9.9 L Hct 30.0 L MCV MCHC RDW Plt Count 84 L Lymph % (Auto) [place] % (Auto) Lymph # [place] # Seg Neutrophils % Seg Neuts % (Manual) Lymphocytes % (Manual) Monocytes % (Manual) Nucleated RBC % Seg Neutrophils # Seg Neutrophils # Man Lymphocytes # (Manual) Monocytes # (Manual) PT INR D-Dimer Heparin Anti-Xa Level POC ABG pH ABG pH POC ABG pCO2 POC ABG pO2 ABG pO2 ABG HCO3 ABG O2 Saturation ABG Base Excess ABG Hemoglobin Oxyhemoglobin Sodium 135 L Potassium Chloride 93.5 L Carbon Dioxide BUN 84 H Creatinine 7.1 H Glucose POC Glucose Lactic Acid Calcium 5.0 L* Ionized Calcium Phosphorus Magnesium Iron TIBC Ferritin Total Bilirubin Direct Bilirubin AST 78 H ALT Alkaline Phosphatase 135 H Total Creatine Kinase 4677 H CK-MB (CK-2) Troponin T C-Reactive Protein Total Protein 4.8 L Albumin 2.3 L Triglycerides 409 H LDL Cholesterol Direct HDL Cholesterol Free T4 PTH Intact Urine WBC (Auto) Urine Creatinine Salicylates Acetaminophen Crossmatch 03/27/19 03/27/19 03/27/19 12:37 14:15 14:15 WBC RBC Hgb 9.7 L Hct 29.5 L MCV MCHC RDW Plt Count 87 L Lymph % (Auto) [place] % (Auto) Lymph # [place] # Seg Neutrophils % Seg Neuts % (Manual) Lymphocytes % (Manual) Monocytes % (Manual) Nucleated RBC % Seg Neutrophils # Seg Neutrophils # Man Lymphocytes # (Manual) Monocytes # (Manual) PT 15.9 H INR 1.30 H D-Dimer Heparin Anti-Xa Level POC ABG pH ABG pH POC ABG pCO2 POC ABG pO2 ABG pO2 ABG HCO3 ABG O2 Saturation ABG Base Excess ABG Hemoglobin Oxyhemoglobin Sodium Potassium Chloride Carbon Dioxide BUN Creatinine Glucose POC Glucose 129 H Lactic Acid Calcium Ionized Calcium Phosphorus Magnesium Iron TIBC Ferritin Total Bilirubin Direct Bilirubin AST ALT Alkaline Phosphatase Total Creatine Kinase CK-MB (CK-2) Troponin T C-Reactive Protein Total Protein Albumin Triglycerides LDL Cholesterol Direct HDL Cholesterol Free T4 PTH Intact Urine WBC (Auto) Urine Creatinine Salicylates Acetaminophen Crossmatch 03/27/19 03/27/19 03/27/19 18:00 19:22 19:23 WBC RBC Hgb Hct MCV MCHC RDW Plt Count Lymph % (Auto) [place] % (Auto) Lymph # [place] # Seg Neutrophils % Seg Neuts % (Manual) Lymphocytes % (Manual) Monocytes % (Manual) Nucleated RBC % Seg Neutrophils # Seg Neutrophils # Man Lymphocytes # (Manual) Monocytes # (Manual) PT INR D-Dimer Heparin Anti-Xa Level < 0.10 L POC ABG pH ABG pH POC ABG pCO2 POC ABG pO2 ABG pO2 ABG HCO3 ABG O2 Saturation ABG Base Excess ABG Hemoglobin Oxyhemoglobin Sodium Potassium Chloride Carbon Dioxide BUN Creatinine Glucose POC Glucose 121 H Lactic Acid Calcium Ionized Calcium Phosphorus Magnesium Iron TIBC Ferritin Total Bilirubin Direct Bilirubin AST ALT Alkaline Phosphatase Total Creatine Kinase 4517 H CK-MB (CK-2) Troponin T C-Reactive Protein Total Protein Albumin Triglycerides LDL Cholesterol Direct HDL Cholesterol Free T4 PTH Intact Urine WBC (Auto) Urine Creatinine Salicylates Acetaminophen Crossmatch 03/27/19 03/27/19 03/28/19 22:10 23:52 03:49 WBC RBC Hgb Hct MCV MCHC RDW Plt Count Lymph % (Auto) [place] % (Auto) Lymph # [place] # Seg Neutrophils % Seg Neuts % (Manual) Lymphocytes % (Manual) Monocytes % (Manual) Nucleated RBC % Seg Neutrophils # Seg Neutrophils # Man Lymphocytes # (Manual) Monocytes # (Manual) PT INR D-Dimer Heparin Anti-Xa Level POC ABG pH 7.338 L ABG pH POC ABG pCO2 33.1 L POC ABG pO2 ABG pO2 ABG HCO3 ABG O2 Saturation ABG Base Excess ABG Hemoglobin Oxyhemoglobin Sodium Potassium Chloride Carbon Dioxide BUN Creatinine Glucose POC Glucose 113 H 117 H Lactic Acid Calcium Ionized Calcium Phosphorus Magnesium Iron TIBC Ferritin Total Bilirubin Direct Bilirubin AST ALT Alkaline Phosphatase Total Creatine Kinase CK-MB (CK-2) Troponin T C-Reactive Protein Total Protein Albumin Triglycerides LDL Cholesterol Direct HDL Cholesterol Free T4 PTH Intact Urine WBC (Auto) Urine Creatinine Salicylates Acetaminophen Crossmatch 03/28/19 03/28/19 03/28/19 05:13 05:13 06:18 WBC RBC Hgb Hct MCV MCHC RDW Plt Count Lymph % (Auto) [place] % (Auto) Lymph # [place] # Seg Neutrophils % Seg Neuts % (Manual) Lymphocytes % (Manual) Monocytes % (Manual) Nucleated RBC % Seg Neutrophils # Seg Neutrophils # Man Lymphocytes # (Manual) Monocytes # (Manual) PT INR D-Dimer Heparin Anti-Xa Level 0.23 L POC ABG pH ABG pH POC ABG pCO2 POC ABG pO2 ABG pO2 ABG HCO3 ABG O2 Saturation ABG Base Excess ABG Hemoglobin Oxyhemoglobin Sodium 135 L Potassium 5.5 H D Chloride 95.1 L Carbon Dioxide 16 L D BUN 129 H Creatinine 9.3 H Glucose 158 H POC Glucose 202 H Lactic Acid Calcium 4.0 L* D Ionized Calcium Phosphorus 12.40 H Magnesium Iron TIBC Ferritin Total Bilirubin Direct Bilirubin AST ALT Alkaline Phosphatase Total Creatine Kinase 4266 H CK-MB (CK-2) Troponin T C-Reactive Protein Total Protein Albumin Triglycerides LDL Cholesterol Direct HDL Cholesterol Free T4 PTH Intact Urine WBC (Auto) Urine Creatinine Salicylates Acetaminophen Crossmatch 03/28/19 03/28/19 03/28/19 08:25 10:00 12:00 WBC RBC Hgb 4.9 L* D Hct 15.4 L* D MCV MCHC RDW Plt Count Lymph % (Auto) [place] % (Auto) Lymph # [place] # Seg Neutrophils % Seg Neuts % (Manual) Lymphocytes % (Manual) Monocytes % (Manual) Nucleated RBC % Seg Neutrophils # Seg Neutrophils # Man Lymphocytes # (Manual) Monocytes # (Manual) PT 17.9 H INR 1.52 H D-Dimer 4845.98 H Heparin Anti-Xa Level POC ABG pH ABG pH POC ABG pCO2 POC ABG pO2 ABG pO2 ABG HCO3 ABG O2 Saturation ABG Base Excess ABG Hemoglobin Oxyhemoglobin Sodium Potassium Chloride Carbon Dioxide BUN Creatinine Glucose POC Glucose Lactic Acid Calcium Ionized Calcium Phosphorus Magnesium Iron TIBC Ferritin Total Bilirubin Direct Bilirubin AST ALT Alkaline Phosphatase Total Creatine Kinase CK-MB (CK-2) Troponin T C-Reactive Protein Total Protein Albumin Triglycerides LDL Cholesterol Direct HDL Cholesterol Free T4 PTH Intact Urine WBC (Auto) Urine Creatinine Salicylates Acetaminophen Crossmatch See Detail 03/28/19 03/28/19 03/28/19 12:28 14:10 17:43 WBC RBC Hgb 5.9 L* Hct 18.3 L* MCV MCHC RDW Plt Count Lymph % (Auto) [place] % (Auto) Lymph # [place] # Seg Neutrophils % Seg Neuts % (Manual) Lymphocytes % (Manual) Monocytes % (Manual) Nucleated RBC % Seg Neutrophils # Seg Neutrophils # Man Lymphocytes # (Manual) Monocytes # (Manual) PT INR D-Dimer Heparin Anti-Xa Level POC ABG pH ABG pH POC ABG pCO2 POC ABG pO2 ABG pO2 ABG HCO3 ABG O2 Saturation ABG Base Excess ABG Hemoglobin Oxyhemoglobin Sodium Potassium Chloride Carbon Dioxide BUN Creatinine Glucose POC Glucose 153 H 159 H Lactic Acid Calcium Ionized Calcium Phosphorus Magnesium Iron TIBC Ferritin Total Bilirubin Direct Bilirubin AST ALT Alkaline Phosphatase Total Creatine Kinase CK-MB (CK-2) Troponin T C-Reactive Protein Total Protein Albumin Triglycerides LDL Cholesterol Direct HDL Cholesterol Free T4 PTH Intact Urine WBC (Auto) Urine Creatinine Salicylates Acetaminophen Crossmatch 03/28/19 03/28/19 03/28/19 18:10 Unknown 23:59 WBC 24.8 H RBC 3.42 L Hgb 10.2 L D Hct 31.1 L D MCV MCHC RDW 15.4 H Plt Count 54 L Lymph % (Auto) [place] % (Auto) Lymph # [place] # Seg Neutrophils % Seg Neuts % (Manual) 91.0 H Lymphocytes % (Manual) 8.0 L Monocytes % (Manual) Nucleated RBC % Seg Neutrophils # Seg Neutrophils # Man 22.6 H Lymphocytes # (Manual) Monocytes # (Manual) PT INR D-Dimer Heparin Anti-Xa Level POC ABG pH ABG pH POC ABG pCO2 POC ABG pO2 ABG pO2 ABG HCO3 ABG O2 Saturation ABG Base Excess ABG Hemoglobin Oxyhemoglobin Sodium Potassium 5.7 H Chloride Carbon Dioxide BUN Creatinine Glucose POC Glucose 107 H Lactic Acid Calcium Ionized Calcium Phosphorus Magnesium Iron TIBC Ferritin Total Bilirubin Direct Bilirubin AST ALT Alkaline Phosphatase Total Creatine Kinase CK-MB (CK-2) Troponin T C-Reactive Protein Total Protein Albumin Triglycerides LDL Cholesterol Direct HDL Cholesterol Free T4 PTH Intact Urine WBC (Auto) Urine Creatinine Salicylates Acetaminophen Crossmatch 03/29/19 03/29/19 03/29/19 04:29 05:46 06:22 WBC RBC Hgb 8.6 L Hct 25.7 L MCV MCHC RDW Plt Count 93 L Lymph % (Auto) [place] % (Auto) Lymph # [place] # Seg Neutrophils % Seg Neuts % (Manual) Lymphocytes % (Manual) Monocytes % (Manual) Nucleated RBC % Seg Neutrophils # Seg Neutrophils # Man Lymphocytes # (Manual) Monocytes # (Manual) PT INR D-Dimer Heparin Anti-Xa Level POC ABG pH ABG pH POC ABG pCO2 32.2 L POC ABG pO2 ABG pO2 ABG HCO3 ABG O2 Saturation ABG Base Excess ABG Hemoglobin Oxyhemoglobin Sodium Potassium Chloride Carbon Dioxide BUN Creatinine Glucose POC Glucose 113 H Lactic Acid Calcium Ionized Calcium Phosphorus Magnesium Iron TIBC Ferritin Total Bilirubin Direct Bilirubin AST ALT Alkaline Phosphatase Total Creatine Kinase CK-MB (CK-2) Troponin T C-Reactive Protein Total Protein Albumin Triglycerides LDL Cholesterol Direct HDL Cholesterol Free T4 PTH Intact Urine WBC (Auto) Urine Creatinine Salicylates Acetaminophen Crossmatch 03/29/19 03/29/19 03/29/19 06:22 06:22 06:22 WBC 23.2 H RBC 2.91 L Hgb 8.6 L Hct 25.8 L MCV MCHC RDW Plt Count 91 L Lymph % (Auto) [place] % (Auto) Lymph # [place] # Seg Neutrophils % Seg Neuts % (Manual) Lymphocytes % (Manual) Monocytes % (Manual) Nucleated RBC % Seg Neutrophils # Seg Neutrophils # Man Lymphocytes # (Manual) Monocytes # (Manual) PT INR D-Dimer Heparin Anti-Xa Level POC ABG pH ABG pH POC ABG pCO2 POC ABG pO2 ABG pO2 ABG HCO3 ABG O2 Saturation ABG Base Excess ABG Hemoglobin Oxyhemoglobin Sodium 133 L Potassium Chloride 93.8 L Carbon Dioxide 18 L BUN 109 H Creatinine 7.4 H Glucose 124 H POC Glucose Lactic Acid Calcium 4.6 L* Ionized Calcium Phosphorus Magnesium Iron TIBC Ferritin Total Bilirubin Direct Bilirubin AST ALT Alkaline Phosphatase Total Creatine Kinase 3401 H CK-MB (CK-2) Troponin T C-Reactive Protein Total Protein Albumin Triglycerides 309 H LDL Cholesterol Direct HDL Cholesterol Free T4 PTH Intact Urine WBC (Auto) Urine Creatinine Salicylates Acetaminophen Crossmatch 03/29/19 03/29/19 03/29/19 11:48 11:48 18:24 WBC RBC Hgb 7.8 L Hct 23.2 L MCV MCHC RDW Plt Count Lymph % (Auto) [place] % (Auto) Lymph # [place] # Seg Neutrophils % Seg Neuts % (Manual) Lymphocytes % (Manual) Monocytes % (Manual) Nucleated RBC % Seg Neutrophils # Seg Neutrophils # Man Lymphocytes # (Manual) Monocytes # (Manual) PT 15.3 H INR 1.24 H D-Dimer Heparin Anti-Xa Level POC ABG pH ABG pH POC ABG pCO2 POC ABG pO2 ABG pO2 ABG HCO3 ABG O2 Saturation ABG Base Excess ABG Hemoglobin Oxyhemoglobin Sodium Potassium Chloride Carbon Dioxide BUN Creatinine Glucose POC Glucose 122 H Lactic Acid Calcium Ionized Calcium Phosphorus Magnesium Iron TIBC Ferritin Total Bilirubin Direct Bilirubin AST ALT Alkaline Phosphatase Total Creatine Kinase CK-MB (CK-2) Troponin T C-Reactive Protein Total Protein Albumin Triglycerides LDL Cholesterol Direct HDL Cholesterol Free T4 PTH Intact Urine WBC (Auto) Urine Creatinine Salicylates Acetaminophen Crossmatch 03/30/19 03/30/19 03/30/19 00:40 04:31 05:04 WBC RBC Hgb 7.6 L Hct 23.0 L MCV MCHC RDW Plt Count Lymph % (Auto) [place] % (Auto) Lymph # [place] # Seg Neutrophils % Seg Neuts % (Manual) Lymphocytes % (Manual) Monocytes % (Manual) Nucleated RBC % Seg Neutrophils # Seg Neutrophils # Man Lymphocytes # (Manual) Monocytes # (Manual) PT INR D-Dimer Heparin Anti-Xa Level POC ABG pH 7.346 L ABG pH POC ABG pCO2 POC ABG pO2 62 L ABG pO2 ABG HCO3 ABG O2 Saturation ABG Base Excess ABG Hemoglobin Oxyhemoglobin Sodium Potassium Chloride Carbon Dioxide BUN 79 H Creatinine 6.4 H Glucose POC Glucose Lactic Acid Calcium 6.1 L D Ionized Calcium Phosphorus Magnesium Iron TIBC Ferritin Total Bilirubin Direct Bilirubin AST ALT Alkaline Phosphatase Total Creatine Kinase CK-MB (CK-2) Troponin T C-Reactive Protein Total Protein Albumin Triglycerides LDL Cholesterol Direct HDL Cholesterol Free T4 PTH Intact Urine WBC (Auto) Urine Creatinine Salicylates Acetaminophen Crossmatch 03/30/19 03/30/19 03/30/19 08:45 12:09 22:43 WBC 14.3 H RBC 2.33 L Hgb 7.0 L 7.4 L Hct 21.0 L 22.3 L MCV MCHC RDW 15.6 H Plt Count 135 L Lymph % (Auto) [place] % (Auto) Lymph # [place] # Seg Neutrophils % Seg Neuts % (Manual) Lymphocytes % (Manual) Monocytes % (Manual) Nucleated RBC % Seg Neutrophils # Seg Neutrophils # Man Lymphocytes # (Manual) Monocytes # (Manual) PT INR D-Dimer Heparin Anti-Xa Level POC ABG pH ABG pH POC ABG pCO2 POC ABG pO2 ABG pO2 ABG HCO3 ABG O2 Saturation ABG Base Excess ABG Hemoglobin Oxyhemoglobin Sodium Potassium Chloride Carbon Dioxide BUN Creatinine Glucose POC Glucose Lactic Acid Calcium Ionized Calcium 3.7 L Phosphorus Magnesium Iron TIBC Ferritin Total Bilirubin Direct Bilirubin AST ALT Alkaline Phosphatase Total Creatine Kinase CK-MB (CK-2) Troponin T C-Reactive Protein Total Protein Albumin Triglycerides LDL Cholesterol Direct HDL Cholesterol Free T4 PTH Intact Urine WBC (Auto) Urine Creatinine Salicylates Acetaminophen Crossmatch 03/30/19 03/30/19 03/31/19 23:38 Unknown 04:44 WBC 11.5 H RBC 2.40 L Hgb 7.3 L Hct 21.9 L MCV MCHC RDW 15.4 H Plt Count Lymph % (Auto) 10.6 L [place] % (Auto) Lymph # [place] # Seg Neutrophils % 81.7 H Seg Neuts % (Manual) Lymphocytes % (Manual) Monocytes % (Manual) Nucleated RBC % Seg Neutrophils # 9.4 H Seg Neutrophils # Man Lymphocytes # (Manual) Monocytes # (Manual) PT INR D-Dimer Heparin Anti-Xa Level POC ABG pH ABG pH POC ABG pCO2 POC ABG pO2 ABG pO2 ABG HCO3 ABG O2 Saturation ABG Base Excess ABG Hemoglobin Oxyhemoglobin Sodium Potassium Chloride Carbon Dioxide BUN Creatinine Glucose POC Glucose 155 H Lactic Acid Calcium Ionized Calcium Phosphorus Magnesium Iron TIBC Ferritin Total Bilirubin Direct Bilirubin 0.4 H AST 63 H ALT Alkaline Phosphatase Total Creatine Kinase CK-MB (CK-2) Troponin T C-Reactive Protein Total Protein 4.9 L Albumin 2.2 L Triglycerides LDL Cholesterol Direct HDL Cholesterol Free T4 PTH Intact Urine WBC (Auto) Urine Creatinine Salicylates Acetaminophen Crossmatch 03/31/19 03/31/19 03/31/19 04:44 05:44 08:20 WBC RBC Hgb Hct MCV MCHC RDW Plt Count Lymph % (Auto) [place] % (Auto) Lymph # [place] # Seg Neutrophils % Seg Neuts % (Manual) Lymphocytes % (Manual) Monocytes % (Manual) Nucleated RBC % Seg Neutrophils # Seg Neutrophils # Man Lymphocytes # (Manual) Monocytes # (Manual) PT INR D-Dimer Heparin Anti-Xa Level POC ABG pH ABG pH POC ABG pCO2 53.5 H POC ABG pO2 62 L ABG pO2 ABG HCO3 ABG O2 Saturation ABG Base Excess ABG Hemoglobin Oxyhemoglobin Sodium 135 L Potassium Chloride 96.7 L Carbon Dioxide 19 L BUN 94 H Creatinine 7.8 H Glucose POC Glucose Lactic Acid Calcium 5.3 L* Ionized Calcium Phosphorus 8.20 H Magnesium Iron TIBC Ferritin Total Bilirubin Direct Bilirubin 0.4 H AST 60 H ALT Alkaline Phosphatase Total Creatine Kinase CK-MB (CK-2) Troponin T C-Reactive Protein Total Protein 4.8 L Albumin 2.1 L Triglycerides LDL Cholesterol Direct HDL Cholesterol Free T4 PTH Intact Urine WBC (Auto) Urine Creatinine Salicylates Acetaminophen Crossmatch 03/31/19 04/01/19 04/01/19 22:14 04:27 04:27 WBC RBC 2.60 L Hgb 8.0 L Hct 24.1 L MCV MCHC RDW 15.7 H Plt Count Lymph % (Auto) 7.9 L [place] % (Auto) Lymph # 0.7 L [place] # Seg Neutrophils % 83.6 H Seg Neuts % (Manual) Lymphocytes % (Manual) Monocytes % (Manual) Nucleated RBC % Seg Neutrophils # Seg Neutrophils # Man Lymphocytes # (Manual) Monocytes # (Manual) PT INR D-Dimer Heparin Anti-Xa Level POC ABG pH 7.286 L ABG pH POC ABG pCO2 54.7 H POC ABG pO2 179 H ABG pO2 ABG HCO3 ABG O2 Saturation ABG Base Excess ABG Hemoglobin Oxyhemoglobin Sodium Potassium Chloride Carbon Dioxide BUN 68 H Creatinine 6.6 H Glucose POC Glucose Lactic Acid Calcium 6.5 L D Ionized Calcium Phosphorus 7.30 H Magnesium Iron TIBC Ferritin Total Bilirubin Direct Bilirubin AST ALT Alkaline Phosphatase Total Creatine Kinase 1652 H CK-MB (CK-2) Troponin T C-Reactive Protein Total Protein Albumin Triglycerides LDL Cholesterol Direct HDL Cholesterol Free T4 PTH Intact Urine WBC (Auto) Urine Creatinine Salicylates Acetaminophen Crossmatch 04/01/19 04/01/19 04/01/19 05:14 05:37 18:37 WBC RBC Hgb Hct MCV MCHC RDW Plt Count Lymph % (Auto) [place] % (Auto) Lymph # [place] # Seg Neutrophils % Seg Neuts % (Manual) Lymphocytes % (Manual) Monocytes % (Manual) Nucleated RBC % Seg Neutrophils # Seg Neutrophils # Man Lymphocytes # (Manual) Monocytes # (Manual) PT INR D-Dimer Heparin Anti-Xa Level POC ABG pH 7.283 L ABG pH POC ABG pCO2 53.4 H POC ABG pO2 241 H ABG pO2 ABG HCO3 ABG O2 Saturation ABG Base Excess ABG Hemoglobin Oxyhemoglobin Sodium Potassium Chloride Carbon Dioxide BUN Creatinine Glucose POC Glucose 111 H 119 H Lactic Acid Calcium Ionized Calcium Phosphorus Magnesium Iron TIBC Ferritin Total Bilirubin Direct Bilirubin AST ALT Alkaline Phosphatase Total Creatine Kinase CK-MB (CK-2) Troponin T C-Reactive Protein Total Protein Albumin Triglycerides LDL Cholesterol Direct HDL Cholesterol Free T4 PTH Intact Urine WBC (Auto) Urine Creatinine Salicylates Acetaminophen Crossmatch 04/01/19 04/02/19 04/02/19 21:28 04:40 05:03 WBC RBC 2.36 L Hgb 7.2 L Hct 21.9 L MCV MCHC RDW 16.0 H Plt Count Lymph % (Auto) 10.8 L [place] % (Auto) Lymph # 0.8 L [place] # Seg Neutrophils % 80.3 H Seg Neuts % (Manual) Lymphocytes % (Manual) Monocytes % (Manual) Nucleated RBC % Seg Neutrophils # Seg Neutrophils # Man Lymphocytes # (Manual) Monocytes # (Manual) PT INR D-Dimer Heparin Anti-Xa Level POC ABG pH 7.299 L 7.300 L ABG pH POC ABG pCO2 48.2 H 45.2 H POC ABG pO2 133 H 107 H ABG pO2 ABG HCO3 ABG O2 Saturation ABG Base Excess ABG Hemoglobin Oxyhemoglobin Sodium Potassium Chloride Carbon Dioxide BUN Creatinine Glucose POC Glucose Lactic Acid Calcium Ionized Calcium Phosphorus Magnesium Iron TIBC Ferritin Total Bilirubin Direct Bilirubin AST ALT Alkaline Phosphatase Total Creatine Kinase CK-MB (CK-2) Troponin T C-Reactive Protein Total Protein Albumin Triglycerides LDL Cholesterol Direct HDL Cholesterol Free T4 PTH Intact Urine WBC (Auto) Urine Creatinine Salicylates Acetaminophen Crossmatch 04/02/19 04/02/19 04/02/19 05:03 05:03 12:15 WBC RBC Hgb 7.4 L Hct 22.6 L MCV MCHC RDW Plt Count Lymph % (Auto) [place] % (Auto) Lymph # [place] # Seg Neutrophils % Seg Neuts % (Manual) Lymphocytes % (Manual) Monocytes % (Manual) Nucleated RBC % Seg Neutrophils # Seg Neutrophils # Man Lymphocytes # (Manual) Monocytes # (Manual) PT INR D-Dimer Heparin Anti-Xa Level POC ABG pH ABG pH POC ABG pCO2 POC ABG pO2 ABG pO2 ABG HCO3 ABG O2 Saturation ABG Base Excess ABG Hemoglobin Oxyhemoglobin Sodium 136 L Potassium Chloride 97.8 L Carbon Dioxide 18 L BUN 82 H Creatinine 8.2 H Glucose POC Glucose Lactic Acid Calcium 6.7 L Ionized Calcium Phosphorus 7.50 H Magnesium Iron 26 L TIBC 138 L Ferritin 607.0 H Total Bilirubin Direct Bilirubin AST ALT Alkaline Phosphatase Total Creatine Kinase CK-MB (CK-2) Troponin T C-Reactive Protein Total Protein Albumin Triglycerides LDL Cholesterol Direct HDL Cholesterol Free T4 PTH Intact Urine WBC (Auto) Urine Creatinine Salicylates Acetaminophen Crossmatch 04/02/19 04/02/19 04/03/19 16:34 17:14 04:18 WBC RBC Hgb Hct MCV MCHC RDW Plt Count Lymph % (Auto) [place] % (Auto) Lymph # [place] # Seg Neutrophils % Seg Neuts % (Manual) Lymphocytes % (Manual) Monocytes % (Manual) Nucleated RBC % Seg Neutrophils # Seg Neutrophils # Man Lymphocytes # (Manual) Monocytes # (Manual) PT INR D-Dimer Heparin Anti-Xa Level POC ABG pH ABG pH POC ABG pCO2 POC ABG pO2 146 H ABG pO2 ABG HCO3 ABG O2 Saturation ABG Base Excess ABG Hemoglobin Oxyhemoglobin Sodium Potassium Chloride Carbon Dioxide BUN Creatinine Glucose POC Glucose 108 H Lactic Acid Calcium Ionized Calcium Phosphorus Magnesium Iron TIBC Ferritin Total Bilirubin Direct Bilirubin AST ALT Alkaline Phosphatase Total Creatine Kinase CK-MB (CK-2) Troponin T C-Reactive Protein Total Protein Albumin Triglycerides LDL Cholesterol Direct HDL Cholesterol Free T4 PTH Intact Urine WBC (Auto) Urine Creatinine Salicylates Acetaminophen Crossmatch See Detail 04/03/19 04/03/19 04/03/19 04:25 08:30 18:24 WBC RBC 2.40 L Hgb 7.3 L Hct 21.9 L MCV MCHC RDW Plt Count Lymph % (Auto) [place] % (Auto) 7.7 H Lymph # 0.9 L [place] # Seg Neutrophils % 74.6 H Seg Neuts % (Manual) Lymphocytes % (Manual) Monocytes % (Manual) Nucleated RBC % Seg Neutrophils # Seg Neutrophils # Man Lymphocytes # (Manual) Monocytes # (Manual) PT INR D-Dimer Heparin Anti-Xa Level POC ABG pH ABG pH POC ABG pCO2 POC ABG pO2 ABG pO2 ABG HCO3 ABG O2 Saturation ABG Base Excess ABG Hemoglobin Oxyhemoglobin Sodium 136 L Potassium Chloride 97.0 L Carbon Dioxide BUN 58 H Creatinine 7.3 H Glucose POC Glucose 106 H Lactic Acid Calcium 7.5 L Ionized Calcium Phosphorus 5.80 H D Magnesium Iron TIBC Ferritin Total Bilirubin Direct Bilirubin AST ALT Alkaline Phosphatase Total Creatine Kinase CK-MB (CK-2) Troponin T C-Reactive Protein Total Protein Albumin Triglycerides LDL Cholesterol Direct HDL Cholesterol Free T4 PTH Intact Urine WBC (Auto) Urine Creatinine Salicylates Acetaminophen Crossmatch 04/03/19 04/04/19 04/04/19 23:43 04:47 04:47 WBC RBC 2.72 L Hgb 8.3 L Hct 24.7 L MCV MCHC RDW 15.6 H Plt Count Lymph % (Auto) [place] % (Auto) 10.1 H Lymph # 0.8 L [place] # Seg Neutrophils % 71.4 H Seg Neuts % (Manual) Lymphocytes % (Manual) Monocytes % (Manual) Nucleated RBC % Seg Neutrophils # Seg Neutrophils # Man Lymphocytes # (Manual) Monocytes # (Manual) PT INR D-Dimer Heparin Anti-Xa Level POC ABG pH ABG pH POC ABG pCO2 POC ABG pO2 ABG pO2 123.8 H ABG HCO3 ABG O2 Saturation ABG Base Excess -3.0 L ABG Hemoglobin 7.9 L Oxyhemoglobin Sodium 134 L Potassium Chloride 97.9 L Carbon Dioxide BUN 64 H Creatinine 8.1 H Glucose POC Glucose Lactic Acid Calcium 7.2 L Ionized Calcium Phosphorus Magnesium Iron TIBC Ferritin Total Bilirubin Direct Bilirubin AST ALT Alkaline Phosphatase Total Creatine Kinase CK-MB (CK-2) Troponin T C-Reactive Protein Total Protein Albumin Triglycerides LDL Cholesterol Direct HDL Cholesterol Free T4 PTH Intact Urine WBC (Auto) Urine Creatinine Salicylates Acetaminophen Crossmatch 04/04/19 04/04/19 04/04/19 06:07 13:40 18:18 WBC RBC Hgb Hct MCV MCHC RDW Plt Count Lymph % (Auto) [place] % (Auto) Lymph # [place] # Seg Neutrophils % Seg Neuts % (Manual) Lymphocytes % (Manual) Monocytes % (Manual) Nucleated RBC % Seg Neutrophils # Seg Neutrophils # Man Lymphocytes # (Manual) Monocytes # (Manual) PT INR D-Dimer Heparin Anti-Xa Level POC ABG pH ABG pH POC ABG pCO2 POC ABG pO2 ABG pO2 95.9 H ABG HCO3 ABG O2 Saturation ABG Base Excess -3.0 L ABG Hemoglobin 8.5 L Oxyhemoglobin Sodium Potassium Chloride Carbon Dioxide BUN Creatinine Glucose POC Glucose 107 H 107 H Lactic Acid Calcium Ionized Calcium Phosphorus Magnesium Iron TIBC Ferritin Total Bilirubin Direct Bilirubin AST ALT Alkaline Phosphatase Total Creatine Kinase CK-MB (CK-2) Troponin T C-Reactive Protein Total Protein Albumin Triglycerides LDL Cholesterol Direct HDL Cholesterol Free T4 PTH Intact Urine WBC (Auto) Urine Creatinine Salicylates Acetaminophen Crossmatch 04/04/19 04/05/19 04/05/19 21:22 04:09 04:09 WBC RBC 2.76 L Hgb 8.4 L Hct 25.4 L MCV MCHC RDW 15.8 H Plt Count 133 L Lymph % (Auto) [place] % (Auto) 9.6 H Lymph # 0.7 L [place] # Seg Neutrophils % 72.6 H Seg Neuts % (Manual) Lymphocytes % (Manual) Monocytes % (Manual) Nucleated RBC % Seg Neutrophils # Seg Neutrophils # Man Lymphocytes # (Manual) Monocytes # (Manual) PT INR D-Dimer Heparin Anti-Xa Level POC ABG pH ABG pH POC ABG pCO2 47.2 H POC ABG pO2 137 H ABG pO2 ABG HCO3 ABG O2 Saturation ABG Base Excess ABG Hemoglobin Oxyhemoglobin Sodium 136 L Potassium Chloride Carbon Dioxide BUN 46 H Creatinine 6.7 H Glucose POC Glucose Lactic Acid Calcium 7.7 L Ionized Calcium Phosphorus Magnesium Iron TIBC Ferritin Total Bilirubin Direct Bilirubin AST ALT Alkaline Phosphatase Total Creatine Kinase CK-MB (CK-2) Troponin T C-Reactive Protein Total Protein Albumin Triglycerides LDL Cholesterol Direct HDL Cholesterol Free T4 PTH Intact Urine WBC (Auto) Urine Creatinine Salicylates Acetaminophen Crossmatch 04/05/19 04/05/19 04/05/19 05:28 06:14 16:50 WBC RBC Hgb Hct MCV MCHC RDW Plt Count Lymph % (Auto) [place] % (Auto) Lymph # [place] # Seg Neutrophils % Seg Neuts % (Manual) Lymphocytes % (Manual) Monocytes % (Manual) Nucleated RBC % Seg Neutrophils # Seg Neutrophils # Man Lymphocytes # (Manual) Monocytes # (Manual) PT INR D-Dimer Heparin Anti-Xa Level POC ABG pH ABG pH POC ABG pCO2 POC ABG pO2 67 L ABG pO2 ABG HCO3 ABG O2 Saturation ABG Base Excess ABG Hemoglobin Oxyhemoglobin Sodium Potassium Chloride Carbon Dioxide BUN Creatinine Glucose POC Glucose 108 H Lactic Acid Calcium Ionized Calcium Phosphorus Magnesium Iron TIBC Ferritin Total Bilirubin Direct Bilirubin AST ALT Alkaline Phosphatase Total Creatine Kinase CK-MB (CK-2) Troponin T C-Reactive Protein Total Protein Albumin Triglycerides LDL Cholesterol Direct HDL Cholesterol Free T4 PTH Intact Urine WBC (Auto) 40.0 H Urine Creatinine Salicylates Acetaminophen Crossmatch 04/05/19 04/06/19 04/06/19 17:22 00:13 04:44 WBC RBC 2.48 L Hgb 7.5 L Hct 22.9 L MCV MCHC RDW 16.0 H Plt Count 107 L Lymph % (Auto) [place] % (Auto) 10.7 H Lymph # 1.0 L [place] # Seg Neutrophils % Seg Neuts % (Manual) Lymphocytes % (Manual) Monocytes % (Manual) Nucleated RBC % Seg Neutrophils # Seg Neutrophils # Man Lymphocytes # (Manual) Monocytes # (Manual) PT INR D-Dimer Heparin Anti-Xa Level POC ABG pH ABG pH POC ABG pCO2 POC ABG pO2 ABG pO2 ABG HCO3 ABG O2 Saturation ABG Base Excess ABG Hemoglobin Oxyhemoglobin Sodium Potassium Chloride Carbon Dioxide BUN Creatinine Glucose POC Glucose 118 H 138 H Lactic Acid Calcium Ionized Calcium Phosphorus Magnesium Iron TIBC Ferritin Total Bilirubin Direct Bilirubin AST ALT Alkaline Phosphatase Total Creatine Kinase CK-MB (CK-2) Troponin T C-Reactive Protein Total Protein Albumin Triglycerides LDL Cholesterol Direct HDL Cholesterol Free T4 PTH Intact Urine WBC (Auto) Urine Creatinine Salicylates Acetaminophen Crossmatch 04/06/19 04/06/19 04/06/19 04:44 05:20 05:23 WBC RBC Hgb Hct MCV MCHC RDW Plt Count Lymph % (Auto) [place] % (Auto) Lymph # [place] # Seg Neutrophils % Seg Neuts % (Manual) Lymphocytes % (Manual) Monocytes % (Manual) Nucleated RBC % Seg Neutrophils # Seg Neutrophils # Man Lymphocytes # (Manual) Monocytes # (Manual) PT INR D-Dimer Heparin Anti-Xa Level POC ABG pH ABG pH POC ABG pCO2 POC ABG pO2 ABG pO2 104.0 H ABG HCO3 ABG O2 Saturation ABG Base Excess -2.1 L ABG Hemoglobin 7.3 L Oxyhemoglobin Sodium Potassium Chloride Carbon Dioxide BUN 64 H Creatinine 8.2 H Glucose 103 H POC Glucose 118 H Lactic Acid Calcium 7.3 L Ionized Calcium Phosphorus Magnesium Iron TIBC Ferritin Total Bilirubin Direct Bilirubin AST ALT Alkaline Phosphatase Total Creatine Kinase CK-MB (CK-2) Troponin T C-Reactive Protein Total Protein Albumin Triglycerides LDL Cholesterol Direct HDL Cholesterol Free T4 PTH Intact Urine WBC (Auto) Urine Creatinine Salicylates Acetaminophen Crossmatch 04/06/19 04/07/19 04/07/19 12:02 05:40 05:40 WBC RBC 2.59 L Hgb 7.9 L Hct 23.8 L MCV MCHC RDW 15.8 H Plt Count 89 L Lymph % (Auto) [place] % (Auto) 10.3 H Lymph # 1.1 L [place] # Seg Neutrophils % Seg Neuts % (Manual) Lymphocytes % (Manual) Monocytes % (Manual) Nucleated RBC % Seg Neutrophils # Seg Neutrophils # Man Lymphocytes # (Manual) Monocytes # (Manual) PT INR D-Dimer Heparin Anti-Xa Level POC ABG pH ABG pH POC ABG pCO2 POC ABG pO2 ABG pO2 ABG HCO3 ABG O2 Saturation ABG Base Excess ABG Hemoglobin Oxyhemoglobin Sodium 136 L Potassium 3.5 L Chloride Carbon Dioxide BUN 46 H Creatinine 6.2 H Glucose POC Glucose 108 H Lactic Acid Calcium 7.9 L Ionized Calcium Phosphorus Magnesium Iron TIBC Ferritin Total Bilirubin Direct Bilirubin AST ALT Alkaline Phosphatase Total Creatine Kinase CK-MB (CK-2) Troponin T C-Reactive Protein Total Protein Albumin Triglycerides LDL Cholesterol Direct HDL Cholesterol Free T4 PTH Intact Urine WBC (Auto) Urine Creatinine Salicylates Acetaminophen Crossmatch 04/07/19 04/09/19 04/09/19 12:57 04:28 04:28 WBC RBC 2.85 L Hgb 8.7 L Hct 26.2 L MCV MCHC RDW 15.6 H Plt Count Lymph % (Auto) [place] % (Auto) 10.4 H Lymph # 1.0 L [place] # Seg Neutrophils % 73.3 H Seg Neuts % (Manual) Lymphocytes % (Manual) Monocytes % (Manual) Nucleated RBC % Seg Neutrophils # Seg Neutrophils # Man Lymphocytes # (Manual) Monocytes # (Manual) PT INR D-Dimer Heparin Anti-Xa Level POC ABG pH ABG pH POC ABG pCO2 POC ABG pO2 107 H ABG pO2 ABG HCO3 ABG O2 Saturation ABG Base Excess ABG Hemoglobin Oxyhemoglobin Sodium Potassium 3.5 L Chloride 97.8 L Carbon Dioxide BUN 62 H Creatinine 8.1 H Glucose POC Glucose Lactic Acid Calcium 8.2 L Ionized Calcium Phosphorus 5.10 H Magnesium Iron TIBC Ferritin Total Bilirubin Direct Bilirubin AST ALT Alkaline Phosphatase Total Creatine Kinase CK-MB (CK-2) Troponin T C-Reactive Protein Total Protein Albumin Triglycerides LDL Cholesterol Direct HDL Cholesterol Free T4 PTH Intact Urine WBC (Auto) Urine Creatinine Salicylates Acetaminophen Crossmatch 04/10/19 04/11/19 04/11/19 18:15 00:25 04:16 WBC 11.5 H RBC 2.91 L Hgb 8.9 L Hct 27.6 L MCV 95 H MCHC RDW 17.5 H Plt Count Lymph % (Auto) [place] % (Auto) Lymph # [place] # Seg Neutrophils % Seg Neuts % (Manual) 71.0 H Lymphocytes % (Manual) Monocytes % (Manual) 8.0 H Nucleated RBC % Seg Neutrophils # Seg Neutrophils # Man 8.2 H Lymphocytes # (Manual) Monocytes # (Manual) 0.9 H PT INR D-Dimer Heparin Anti-Xa Level POC ABG pH ABG pH POC ABG pCO2 POC ABG pO2 ABG pO2 ABG HCO3 ABG O2 Saturation ABG Base Excess ABG Hemoglobin Oxyhemoglobin Sodium Potassium Chloride Carbon Dioxide BUN Creatinine Glucose POC Glucose 109 H 114 H Lactic Acid Calcium Ionized Calcium Phosphorus Magnesium Iron TIBC Ferritin Total Bilirubin Direct Bilirubin AST ALT Alkaline Phosphatase Total Creatine Kinase CK-MB (CK-2) Troponin T C-Reactive Protein Total Protein Albumin Triglycerides LDL Cholesterol Direct HDL Cholesterol Free T4 PTH Intact Urine WBC (Auto) Urine Creatinine Salicylates Acetaminophen Crossmatch 04/11/19 04/11/19 04/11/19 06:47 09:21 12:15 WBC RBC Hgb Hct MCV MCHC RDW Plt Count Lymph % (Auto) [place] % (Auto) Lymph # [place] # Seg Neutrophils % Seg Neuts % (Manual) Lymphocytes % (Manual) Monocytes % (Manual) Nucleated RBC % Seg Neutrophils # Seg Neutrophils # Man Lymphocytes # (Manual) Monocytes # (Manual) PT INR D-Dimer Heparin Anti-Xa Level POC ABG pH ABG pH POC ABG pCO2 POC ABG pO2 ABG pO2 ABG HCO3 ABG O2 Saturation ABG Base Excess ABG Hemoglobin Oxyhemoglobin Sodium Potassium 3.5 L Chloride Carbon Dioxide BUN 45 H Creatinine 6.0 H Glucose 113 H POC Glucose 106 H 109 H Lactic Acid Calcium Ionized Calcium Phosphorus Magnesium Iron TIBC Ferritin Total Bilirubin Direct Bilirubin AST ALT Alkaline Phosphatase Total Creatine Kinase CK-MB (CK-2) Troponin T C-Reactive Protein Total Protein Albumin Triglycerides LDL Cholesterol Direct HDL Cholesterol Free T4 PTH Intact Urine WBC (Auto) Urine Creatinine Salicylates Acetaminophen Crossmatch 04/11/19 04/12/19 04/12/19 18:42 12:13 23:52 WBC RBC Hgb Hct MCV MCHC RDW Plt Count Lymph % (Auto) [place] % (Auto) Lymph # [place] # Seg Neutrophils % Seg Neuts % (Manual) Lymphocytes % (Manual) Monocytes % (Manual) Nucleated RBC % Seg Neutrophils # Seg Neutrophils # Man Lymphocytes # (Manual) Monocytes # (Manual) PT INR D-Dimer Heparin Anti-Xa Level POC ABG pH ABG pH POC ABG pCO2 POC ABG pO2 ABG pO2 ABG HCO3 ABG O2 Saturation ABG Base Excess ABG Hemoglobin Oxyhemoglobin Sodium Potassium Chloride Carbon Dioxide BUN Creatinine Glucose POC Glucose 107 H 115 H 124 H Lactic Acid Calcium Ionized Calcium Phosphorus Magnesium Iron TIBC Ferritin Total Bilirubin Direct Bilirubin AST ALT Alkaline Phosphatase Total Creatine Kinase CK-MB (CK-2) Troponin T C-Reactive Protein Total Protein Albumin Triglycerides LDL Cholesterol Direct HDL Cholesterol Free T4 PTH Intact Urine WBC (Auto) Urine Creatinine Salicylates Acetaminophen Crossmatch 04/13/19 04/13/19 04/13/19 05:00 05:00 05:47 WBC 11.7 H RBC 2.97 L Hgb 8.8 L Hct 27.3 L MCV MCHC RDW 16.1 H Plt Count Lymph % (Auto) 9.5 L [place] % (Auto) 9.9 H Lymph # 1.1 L [place] # 1.2 H Seg Neutrophils % 78.6 H Seg Neuts % (Manual) Lymphocytes % (Manual) Monocytes % (Manual) Nucleated RBC % Seg Neutrophils # 9.2 H Seg Neutrophils # Man Lymphocytes # (Manual) Monocytes # (Manual) PT INR D-Dimer Heparin Anti-Xa Level POC ABG pH ABG pH POC ABG pCO2 POC ABG pO2 ABG pO2 ABG HCO3 ABG O2 Saturation ABG Base Excess ABG Hemoglobin Oxyhemoglobin Sodium Potassium 3.5 L Chloride Carbon Dioxide BUN 42 H Creatinine 4.6 H Glucose 106 H POC Glucose 107 H Lactic Acid Calcium 10.6 H D Ionized Calcium Phosphorus 5.90 H Magnesium Iron TIBC Ferritin Total Bilirubin Direct Bilirubin AST ALT Alkaline Phosphatase Total Creatine Kinase CK-MB (CK-2) Troponin T C-Reactive Protein Total Protein 5.8 L Albumin 2.5 L Triglycerides LDL Cholesterol Direct HDL Cholesterol Free T4 PTH Intact Urine WBC (Auto) Urine Creatinine Salicylates Acetaminophen Crossmatch 04/13/19 04/14/19 04/14/19 17:32 00:00 03:55 WBC RBC Hgb Hct MCV MCHC RDW Plt Count Lymph % (Auto) [place] % (Auto) Lymph # [place] # Seg Neutrophils % Seg Neuts % (Manual) Lymphocytes % (Manual) Monocytes % (Manual) Nucleated RBC % Seg Neutrophils # Seg Neutrophils # Man Lymphocytes # (Manual) Monocytes # (Manual) PT INR D-Dimer Heparin Anti-Xa Level POC ABG pH ABG pH POC ABG pCO2 POC ABG pO2 ABG pO2 ABG HCO3 ABG O2 Saturation ABG Base Excess ABG Hemoglobin Oxyhemoglobin Sodium Potassium 3.0 L Chloride Carbon Dioxide BUN 30 H Creatinine 3.1 H Glucose POC Glucose 112 H 120 H Lactic Acid Calcium 10.8 H Ionized Calcium Phosphorus Magnesium Iron TIBC Ferritin Total Bilirubin Direct Bilirubin AST ALT Alkaline Phosphatase Total Creatine Kinase CK-MB (CK-2) Troponin T C-Reactive Protein Total Protein Albumin Triglycerides LDL Cholesterol Direct HDL Cholesterol Free T4 PTH Intact Urine WBC (Auto) Urine Creatinine Salicylates Acetaminophen Crossmatch 04/14/19 04/14/19 04/15/19 11:56 23:28 05:11 WBC 13.0 H RBC 2.93 L Hgb 8.6 L Hct 26.5 L MCV MCHC RDW 16.5 H Plt Count Lymph % (Auto) 12.2 L [place] % (Auto) 9.1 H Lymph # [place] # 1.2 H Seg Neutrophils % 77.6 H Seg Neuts % (Manual) Lymphocytes % (Manual) Monocytes % (Manual) Nucleated RBC % Seg Neutrophils # 10.1 H Seg Neutrophils # Man Lymphocytes # (Manual) Monocytes # (Manual) PT INR D-Dimer Heparin Anti-Xa Level POC ABG pH ABG pH POC ABG pCO2 POC ABG pO2 ABG pO2 ABG HCO3 ABG O2 Saturation ABG Base Excess ABG Hemoglobin Oxyhemoglobin Sodium Potassium Chloride Carbon Dioxide BUN Creatinine Glucose POC Glucose 109 H 112 H Lactic Acid Calcium Ionized Calcium Phosphorus Magnesium Iron TIBC Ferritin Total Bilirubin Direct Bilirubin AST ALT Alkaline Phosphatase Total Creatine Kinase CK-MB (CK-2) Troponin T C-Reactive Protein Total Protein Albumin Triglycerides LDL Cholesterol Direct HDL Cholesterol Free T4 PTH Intact Urine WBC (Auto) Urine Creatinine Salicylates Acetaminophen Crossmatch 04/15/19 04/15/19 04/15/19 05:11 05:31 18:03 WBC RBC Hgb Hct MCV MCHC RDW Plt Count Lymph % (Auto) [place] % (Auto) Lymph # [place] # Seg Neutrophils % Seg Neuts % (Manual) Lymphocytes % (Manual) Monocytes % (Manual) Nucleated RBC % Seg Neutrophils # Seg Neutrophils # Man Lymphocytes # (Manual) Monocytes # (Manual) PT INR D-Dimer Heparin Anti-Xa Level POC ABG pH ABG pH POC ABG pCO2 POC ABG pO2 ABG pO2 ABG HCO3 ABG O2 Saturation ABG Base Excess ABG Hemoglobin Oxyhemoglobin Sodium Potassium 3.2 L Chloride Carbon Dioxide BUN 44 H Creatinine 3.6 H Glucose 106 H POC Glucose 110 H 121 H Lactic Acid Calcium 12.0 H Ionized Calcium Phosphorus 5.00 H Magnesium Iron TIBC Ferritin Total Bilirubin Direct Bilirubin AST ALT Alkaline Phosphatase Total Creatine Kinase CK-MB (CK-2) Troponin T C-Reactive Protein Total Protein Albumin Triglycerides LDL Cholesterol Direct HDL Cholesterol Free T4 PTH Intact Urine WBC (Auto) Urine Creatinine Salicylates Acetaminophen Crossmatch 04/16/19 04/16/19 04/17/19 05:07 05:07 04:15 WBC 12.6 H RBC 3.12 L Hgb 9.0 L Hct 28.2 L MCV MCHC RDW 16.6 H Plt Count Lymph % (Auto) 10.3 L [place] % (Auto) 9.8 H Lymph # [place] # 1.2 H Seg Neutrophils % 78.2 H Seg Neuts % (Manual) Lymphocytes % (Manual) Monocytes % (Manual) Nucleated RBC % Seg Neutrophils # 9.9 H Seg Neutrophils # Man Lymphocytes # (Manual) Monocytes # (Manual) PT INR D-Dimer Heparin Anti-Xa Level POC ABG pH ABG pH POC ABG pCO2 POC ABG pO2 ABG pO2 ABG HCO3 ABG O2 Saturation ABG Base Excess ABG Hemoglobin Oxyhemoglobin Sodium 147 H 150 H Potassium 3.5 L 3.1 L Chloride Carbon Dioxide 32 H BUN 54 H 65 H Creatinine 3.8 H 4.0 H Glucose 102 H 107 H POC Glucose Lactic Acid Calcium 11.7 H 12.0 H Ionized Calcium Phosphorus 5.40 H Magnesium Iron TIBC Ferritin Total Bilirubin Direct Bilirubin AST ALT Alkaline Phosphatase Total Creatine Kinase CK-MB (CK-2) Troponin T C-Reactive Protein 7.10 H Total Protein Albumin Triglycerides LDL Cholesterol Direct HDL Cholesterol Free T4 PTH Intact Urine WBC (Auto) Urine Creatinine Salicylates Acetaminophen Crossmatch 04/17/19 04/17/19 04/17/19 04:15 06:05 12:49 WBC 15.8 H RBC 3.32 L Hgb 9.5 L Hct 29.9 L MCV MCHC RDW 16.9 H Plt Count Lymph % (Auto) 12.6 L [place] % (Auto) 11.1 H Lymph # [place] # 1.7 H Seg Neutrophils % 74.7 H Seg Neuts % (Manual) Lymphocytes % (Manual) Monocytes % (Manual) Nucleated RBC % Seg Neutrophils # 11.8 H Seg Neutrophils # Man Lymphocytes # (Manual) Monocytes # (Manual) PT INR D-Dimer Heparin Anti-Xa Level POC ABG pH ABG pH POC ABG pCO2 POC ABG pO2 ABG pO2 ABG HCO3 ABG O2 Saturation ABG Base Excess ABG Hemoglobin Oxyhemoglobin Sodium Potassium Chloride Carbon Dioxide BUN Creatinine Glucose POC Glucose 111 H 108 H Lactic Acid Calcium Ionized Calcium Phosphorus Magnesium Iron TIBC Ferritin Total Bilirubin Direct Bilirubin AST ALT Alkaline Phosphatase Total Creatine Kinase CK-MB (CK-2) Troponin T C-Reactive Protein Total Protein Albumin Triglycerides LDL Cholesterol Direct HDL Cholesterol Free T4 PTH Intact Urine WBC (Auto) Urine Creatinine Salicylates Acetaminophen Crossmatch 04/18/19 04/18/19 04/18/19 00:23 04:41 04:41 WBC 19.4 H RBC 3.03 L Hgb 8.6 L Hct 27.5 L MCV MCHC 31 L RDW 16.9 H Plt Count Lymph % (Auto) [place] % (Auto) Lymph # [place] # Seg Neutrophils % Seg Neuts % (Manual) Lymphocytes % (Manual) Monocytes % (Manual) Nucleated RBC % Seg Neutrophils # Seg Neutrophils # Man Lymphocytes # (Manual) Monocytes # (Manual) PT INR D-Dimer Heparin Anti-Xa Level POC ABG pH ABG pH POC ABG pCO2 POC ABG pO2 ABG pO2 ABG HCO3 ABG O2 Saturation ABG Base Excess ABG Hemoglobin Oxyhemoglobin Sodium 152 H Potassium 3.0 L Chloride Carbon Dioxide BUN 80 H Creatinine 4.3 H Glucose 103 H POC Glucose 115 H Lactic Acid Calcium 11.4 H Ionized Calcium Phosphorus Magnesium Iron TIBC Ferritin Total Bilirubin Direct Bilirubin AST ALT Alkaline Phosphatase Total Creatine Kinase CK-MB (CK-2) Troponin T C-Reactive Protein Total Protein Albumin Triglycerides LDL Cholesterol Direct HDL Cholesterol Free T4 PTH Intact Urine WBC (Auto) Urine Creatinine Salicylates Acetaminophen Crossmatch 04/18/19 04/18/19 06:17 18:10 WBC RBC Hgb Hct MCV MCHC RDW Plt Count Lymph % (Auto) [place] % (Auto) Lymph # [place] # Seg Neutrophils % Seg Neuts % (Manual) Lymphocytes % (Manual) Monocytes % (Manual) Nucleated RBC % Seg Neutrophils # Seg Neutrophils # Man Lymphocytes # (Manual) Monocytes # (Manual) PT INR D-Dimer Heparin Anti-Xa Level POC ABG pH ABG pH POC ABG pCO2 POC ABG pO2 ABG pO2 ABG HCO3 ABG O2 Saturation ABG Base Excess ABG Hemoglobin Oxyhemoglobin Sodium Potassium Chloride Carbon Dioxide BUN Creatinine Glucose POC Glucose 124 H 111 H Lactic Acid Calcium Ionized Calcium Phosphorus Magnesium Iron TIBC Ferritin Total Bilirubin Direct Bilirubin AST ALT Alkaline Phosphatase Total Creatine Kinase CK-MB (CK-2) Troponin T C-Reactive Protein Total Protein Albumin Triglycerides LDL Cholesterol Direct HDL Cholesterol Free T4 PTH Intact Urine WBC (Auto) Urine Creatinine Salicylates Acetaminophen Crossmatch Additional Studies: Duplex scan right upper extremity reported residual thrombus. Allied health notes reviewed: nursing
[2019-04-19] MEDS: LINEZOLID 600 MG/300 ML BAG IV SCH ×2 (04:42→16:17)
[2019-04-19 05:03] LABS: Calcium 10.6 mg/dL (8.4-10.2)
--- NOTE | 2019-04-19 06:37 | Hem/Onc Progress Note ---
Assessment and Plan 1. h/o Anemia. The patient has history of bleeding. 2. rt Internal jugular partial thrombosis. The patient was started on heparin. This has been held due to bleeding 3. Gastrointestinal bleed. 4. h/o Elevated creatinine kinase. 5. h/o Low calcium. 6. h/o Thrombocytopenia. 7. h/o Renal failure. 8. h/o Intubation. 9. s/p Transfusion support. 10. Leukocytosis. At this time, supportive care may help the patient. The patient's platelet was low at admission. Urine toxicology was negative. awake h/o rt IJ dvt - off anticoagulation - due to bleeding platelet - > 100 s/p iv iron trial pt was on BIPAP - then o2 support h/o tachycardia - on meds moving arms>legs left arm swelling -dvt study negative for left arm rt IJ dvt is better - Patient Problems (1) DVT (deep venous thrombosis) Current Visit: Yes Status: Acute Subjective Date of service: 04/19/19 Principal diagnosis: anemia - DVT IJ Interval history: pt had doppler arm Objective - Exam Narrative Exam: Pain - none now General appearance - awake Performance status limited self care Eyes - no icterus ENT - extubated LNs cervical not palpable Neck - no LN Respiratory Normal Breath sounds - CTA anteriorly CVS S1 S2 + Extremities edema + General GI Soft Rectal deferred male - deferred Skin warm Musculoskeletal arms>legs Neurologically awake - Constitutional Vitals: Last Vital Signs Temp 99.0 F 04/19/19 04:00 Pulse 92 H 04/19/19 06:00 Resp 20 04/19/19 06:00 BP 118/59 04/19/19 06:00 Pulse Ox 98 04/19/19 06:00 - Labs Lab Results: Laboratory Results - last 24 hr 04/18/19 04/18/19 04/18/19 10:02 18:10 23:57 Sodium Potassium Chloride Carbon Dioxide Anion Gap BUN Creatinine Estimated GFR BUN/Creatinine Ratio Glucose POC Glucose 111 H 84 Calcium Hepatitis A IgM Ab Non-reactive Hep Bs Antigen Non-reactive Hep B Core IgM Ab Non-reactive Hepatitis C Antibody Non-reactive 04/19/19 04/19/19 03:49 05:27 Sodium 147 H Potassium 3.3 L Chloride 104.6 Carbon Dioxide 29 Anion Gap 17 BUN 45 H Creatinine 2.9 H Estimated GFR 24 BUN/Creatinine Ratio 16 Glucose 100 POC Glucose 124 H Calcium 10.6 H Hepatitis A IgM Ab Hep Bs Antigen Hep B Core IgM Ab Hepatitis C Antibody Medications & Allergies - Medications Allergies/Adverse Reactions: Allergies No Known Allergies Allergy (Unverified 03/16/19 17:17) Home Medications: Home Medications Medication Instructions Recorded Confirmed Last Taken Type Unobtainable 03/18/19 03/18/19 Unknown History Active Medications: Generic Name Dose Route Start Last Admin Trade Name Freq PRN Reason Stop Dose Admin Acetaminophen 650 mg 04/02/19 23:26 04/18/19 21:25 Tylenol PO 650 mg Q4H PRN Administration Pain, Mild (1-3),temp>100.5 Albuterol 2.5 mg 03/29/19 13:08 Proventil IH Q4HRT PRN Shortness Of Breath Amiodarone HCl 200 mg 04/15/19 22:00 04/18/19 21:25 Cordarone PO 200 mg BID PAOLO Administration Bacitracin 1 applic 04/17/19 08:00 Antibiotic Oint TP Q4H PRN upper lip sore/open Dextrose 50 gm 04/17/19 08:00 D50w (25gm) Vial IV Q1H PRN Hypoglycemia Epoetin Jet 20,000 unit 03/31/19 10:15 04/18/19 17:52 Procrit SUB-Q 20,000 unit NEYMAR PRN Administration hemodialysis Hydralazine HCl 20 mg 04/14/19 03:00 04/14/19 03:11 Apresoline IV 20 mg Q4H PRN Administration hypertemsion Hydrophilic Ointment 1 applic 03/16/19 15:50 Vaseline Lip Therapy TP Q2HR PRN Dry Lips Aztreonam 2 gm in 100 mls @ 100 mls/hr 04/17/19 18:00 04/18/19 09:26 Azactam/Ns 2 Gm/100 Ml IV 100 mls/hr Q24HR PAOLO Administration Protocol Linezolid 600 mg in 300 mls @ 300 mls/hr 04/17/19 17:00 04/19/19 04:42 Zyvox 600mg/300ml IV 300 mls/hr Q12H PAOLO Administration Protocol Sodium Chloride 100 mls @ 999 mls/hr 04/18/19 07:30 Nacl 0.9% IV NEYMAR PRN Hypotension Lansoprazole 30 mg 04/11/19 10:00 04/18/19 21:25 Prevacid Solutab FEEDTUBE 30 mg BID PAOLO Administration Metoprolol Tartrate 5 mg 04/16/19 22:24 04/17/19 14:25 Lopressor IV 5 mg Q6H PRN Administration For HR >120 Metoprolol Tartrate 25 mg 04/17/19 20:00 04/18/19 21:25 Lopressor PO 25 mg TID PAOLO Administration Multi-Ingred Cream/Lotion/Oil/Oint 1 applic 03/16/19 15:50 03/19/19 20:10 Artificial Tears Ophth Oint OU 1 applic Q4HR PRN Administration Dry Eye(s) Sodium Hypochlorite 1 applic 04/18/19 11:00 04/18/19 21:28 Dakin's Half Strength TP Not Given BID PAOLO
[2019-04-19] MEDS: METOPROLOL TARTRATE 25 MG TAB PO SCH ×3 (08:34→20:32)
--- NOTE | 2019-04-19 08:45 | Progress Note ---
Assessment and Plan Severe sepsis with shock. Right axilla abscess versus localized pannus/fatty collection. Acute hypoxemic respiratory failure, s/p mechanical ventilator support. Likely aspiration pneumonia, bilateral. Morbid obesity. Acute kidney injury secondary to ATN on HD. Leukocytosis-resolved Elevated serum transaminases/possible shock liver. Acute encephalopathy, toxic metabolic Thrombocytopenia- etiology, multifactorial- improving RIJ non-occlusive thrombus Oropharyngeal dysphagia Acute blood loss anemia with hemorrhagic shock- resolved Critical illness myopathy -Encouraged to continue to adhere to nocturnal BIPAP -wean FiO2 for O2 sats>92% - Continue to monitor off antibiotics - continue HD/UF per nephrology -Aspiration precautions, HOB >40 - prn analgesia per CPOT score - prn supportive blood transfusions to keep HgB > 7.0 - Monitor hemodynamics closely - continue mobility protocols and off loading as tolerated for pressure ulcer prevention - continue to avoid nephrotoxins, adjust all medications for GFR and CRCL - continue GI & VTE prophylaxis ( SCDs and therapeutic pantoprazole, dosed for renal function) - accuchecks with glycemic control per SSI for target BG of 140-180 mg/dl - avoid hypoglycemia - CONTIUE PT/OT/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 SOCIAL MEDIA CONDITION: IMPROVING PROGNOSIS: FAIR CODE STATUS: FULL Subjective Date of service: 04/19/19 Principal diagnosis: anemia - DVT IJ Interval history: Patient is seen today for: Severe sepsis with shock; Acute hypoxemic respiratory failure; Aspiration pneumonia; Morbid obesity; Rhabdomyolysis; Acute kidney injury; Morbid obesity; Elevated serum transaminases/possible shock liver; Acute encephalopathy (Toxic/Met) Seen and examined at bedside; 24hour events reviewed; nursing and respiratory care staff consulted; no adverse overnight events reported to me; resting peacefully in bed; No fevers, asking for blueberries or bananas, hoarse voice Vitals, labs, medications, chart and imaging reviewed. Objective Vital Signs - 12hr 04/18/19 04/18/19 04/18/19 21:00 21:25 22:00 Temperature Pulse Rate 98 H 95 H 82 Pulse Rate [ From Monitor] Respiratory 12 Rate Blood Pressure 122/68 129/68 119/70 O2 Sat by Pulse 98 99 Oximetry 04/18/19 04/18/19 04/18/19 23:00 23:01 23:42 Temperature Pulse Rate 85 85 91 H Pulse Rate [ From Monitor] Respiratory 24 16 22 Rate Blood Pressure 121/67 121/67 120/73 O2 Sat by Pulse 98 98 100 Oximetry 04/18/19 04/19/19 04/19/19 23:55 00:00 01:00 Temperature 99.1 F Pulse Rate 86 93 H Pulse Rate [ 90 From Monitor] Respiratory 23 11 L Rate Blood Pressure 124/76 124/71 O2 Sat by Pulse 98 98 98 Oximetry 04/19/19 04/19/19 04/19/19 02:00 03:00 04:00 Temperature 99.0 F Pulse Rate 94 H 92 H 92 H Pulse Rate [ 92 H From Monitor] Respiratory 13 17 22 Rate Blood Pressure 114/71 104/57 116/59 O2 Sat by Pulse 98 96 98 Oximetry 04/19/19 04/19/19 04/19/19 05:00 06:00 08:00 Temperature 100.5 F H Pulse Rate 92 H 92 H Pulse Rate [ From Monitor] Respiratory 36 H 20 Rate Blood Pressure 123/65 118/59 O2 Sat by Pulse 98 98 Oximetry 04/19/19 04/19/19 08:16 08:34 Temperature Pulse Rate 98 H Pulse Rate [ From Monitor] Respiratory Rate Blood Pressure 122/70 O2 Sat by Pulse 98 Oximetry Constitutional: no acute distress, alert Eyes: icteric ENT: oropharynx moist Neck: supple, no lymphadenopathy, no JVD, other (large neck circumference) Effort: normal Ascultation: Bilateral: diminished breath sounds, rales, rhonchi (scant) Percussion: Bilateral: not dull Cardiovascular: regular rate and rhythm, other ( S1,S2) Gastrointestinal: normoactive bowel sounds, soft, non-tender Integumentary: normal Extremities: no cyanosis, pink and warm, pulses normal, no ischemia or petechi ae, edema (right upper extremity) Neurologic: normal mental status, non-focal exam (grossly), pupils equal and round, CN II-XII normal, other (very weak) Psychiatric: mood appropriate, affect normal CBC and BMP: 04/18/19 04:41 04/19/19 03:49 ABG, PT/INR, D-dimer: ABG POC ABG pH 7.401 (7.35-7.45) 04/07/19 12:57 ABG pH 7.388 pH Units (7.350-7.450) 04/06/19 05:20 POC ABG pCO2 41.5 (35-45) 04/07/19 12:57 ABG pCO2 38.5 mm Hg 04/06/19 05:20 POC ABG pO2 107 (80-105) H 04/07/19 12:57 ABG pO2 104.0 mm Hg (80.0-90.0) H 04/06/19 05:20 POC ABG HCO3 25.7 (22-26 mml/L) 04/07/19 12:57 POC ABG Total CO2 27 (23-27mmol/L) 04/07/19 12:57 POC ABG O2 Sat 98 04/07/19 12:57 ABG O2 Saturation 97.8 % (95.0-99.0) 04/06/19 05:20 PT/INR, D-dimer PT 15.3 Sec. (12.2-14.9) H 03/29/19 11:48 INR 1.24 (0.87-1.13) H 03/29/19 11:48 D-Dimer 4845.98 ng/mlDDU (0-234) H 03/28/19 12:00 Abnormal lab findings: Abnormal Labs 03/16/19 03/16/19 03/16/19 15:32 16:03 16:05 WBC 27.0 H RBC 5.55 H Hgb 15.7 H Hct 47.1 H MCV MCHC RDW Plt Count 75 L Lymph % (Auto) [place] % (Auto) Lymph # [place] # Seg Neutrophils % Seg Neuts % (Manual) 85.0 H Lymphocytes % (Manual) 2.0 L Monocytes % (Manual) Nucleated RBC % Seg Neutrophils # Seg Neutrophils # Man 23.0 H Lymphocytes # (Manual) 0.5 L Monocytes # (Manual) PT INR D-Dimer Heparin Anti-Xa Level POC ABG pH ABG pH POC ABG pCO2 POC ABG pO2 ABG pO2 ABG HCO3 ABG O2 Saturation ABG Base Excess ABG Hemoglobin Oxyhemoglobin Sodium 127 L Potassium Chloride 87.8 L Carbon Dioxide 17 L BUN 49 H Creatinine 5.8 H Glucose 150 H POC Glucose 118 H Lactic Acid Calcium 6.6 L Ionized Calcium Phosphorus Magnesium 1.10 L Iron TIBC Ferritin Total Bilirubin Direct Bilirubin AST ALT Alkaline Phosphatase Total Creatine Kinase 60607 H CK-MB (CK-2) Troponin T C-Reactive Protein Total Protein Albumin Triglycerides LDL Cholesterol Direct HDL Cholesterol Free T4 PTH Intact Urine WBC (Auto) Urine Creatinine Salicylates Acetaminophen Crossmatch 03/16/19 03/16/19 03/16/19 16:59 17:05 17:05 WBC RBC Hgb Hct MCV MCHC RDW Plt Count Lymph % (Auto) [place] % (Auto) Lymph # [place] # Seg Neutrophils % Seg Neuts % (Manual) Lymphocytes % (Manual) Monocytes % (Manual) Nucleated RBC % Seg Neutrophils # Seg Neutrophils # Man Lymphocytes # (Manual) Monocytes # (Manual) PT INR D-Dimer Heparin Anti-Xa Level POC ABG pH 7.297 L ABG pH POC ABG pCO2 33.0 L POC ABG pO2 ABG pO2 ABG HCO3 ABG O2 Saturation ABG Base Excess ABG Hemoglobin Oxyhemoglobin Sodium Potassium Chloride Carbon Dioxide BUN Creatinine Glucose POC Glucose Lactic Acid Calcium Ionized Calcium Phosphorus Magnesium Iron TIBC Ferritin Total Bilirubin Direct Bilirubin AST ALT Alkaline Phosphatase Total Creatine Kinase 16440 H CK-MB (CK-2) 83.1 H Troponin T C-Reactive Protein Total Protein Albumin Triglycerides LDL Cholesterol Direct HDL Cholesterol Free T4 0.72 L PTH Intact Urine WBC (Auto) Urine Creatinine Salicylates Acetaminophen Crossmatch 03/16/19 03/16/19 03/16/19 17:05 17:05 17:05 WBC RBC Hgb Hct MCV MCHC RDW Plt Count Lymph % (Auto) [place] % (Auto) Lymph # [place] # Seg Neutrophils % Seg Neuts % (Manual) Lymphocytes % (Manual) Monocytes % (Manual) Nucleated RBC % Seg Neutrophils # Seg Neutrophils # Man Lymphocytes # (Manual) Monocytes # (Manual) PT INR D-Dimer Heparin Anti-Xa Level POC ABG pH ABG pH POC ABG pCO2 POC ABG pO2 ABG pO2 ABG HCO3 ABG O2 Saturation ABG Base Excess ABG Hemoglobin Oxyhemoglobin Sodium Potassium Chloride Carbon Dioxide BUN Creatinine Glucose POC Glucose Lactic Acid 5.10 H* Calcium Ionized Calcium Phosphorus Magnesium Iron TIBC Ferritin Total Bilirubin Direct Bilirubin AST ALT Alkaline Phosphatase Total Creatine Kinase CK-MB (CK-2) Troponin T C-Reactive Protein Total Protein Albumin Triglycerides LDL Cholesterol Direct HDL Cholesterol Free T4 PTH Intact Urine WBC (Auto) Urine Creatinine Salicylates < 0.3 L Acetaminophen < 5.0 L Crossmatch 03/16/19 03/16/19 03/16/19 17:05 17:05 20:35 WBC RBC Hgb Hct MCV MCHC RDW Plt Count Lymph % (Auto) [place] % (Auto) Lymph # [place] # Seg Neutrophils % Seg Neuts % (Manual) Lymphocytes % (Manual) Monocytes % (Manual) Nucleated RBC % Seg Neutrophils # Seg Neutrophils # Man Lymphocytes # (Manual) Monocytes # (Manual) PT 15.9 H INR 1.30 H D-Dimer Heparin Anti-Xa Level POC ABG pH ABG pH POC ABG pCO2 POC ABG pO2 ABG pO2 ABG HCO3 ABG O2 Saturation ABG Base Excess ABG Hemoglobin Oxyhemoglobin Sodium Potassium Chloride Carbon Dioxide BUN Creatinine Glucose POC Glucose Lactic Acid 3.30 H* Calcium Ionized Calcium Phosphorus Magnesium Iron TIBC Ferritin Total Bilirubin 6.20 H Direct Bilirubin 5.9 H AST 800 H ALT 120 H Alkaline Phosphatase Total Creatine Kinase CK-MB (CK-2) Troponin T C-Reactive Protein Total Protein 4.4 L Albumin 2.4 L Triglycerides LDL Cholesterol Direct HDL Cholesterol Free T4 PTH Intact Urine WBC (Auto) Urine Creatinine Salicylates Acetaminophen Crossmatch 03/16/19 03/16/19 03/16/19 21:45 22:32 Unknown WBC RBC Hgb Hct MCV MCHC RDW Plt Count Lymph % (Auto) [place] % (Auto) Lymph # [place] # Seg Neutrophils % Seg Neuts % (Manual) Lymphocytes % (Manual) Monocytes % (Manual) Nucleated RBC % Seg Neutrophils # Seg Neutrophils # Man Lymphocytes # (Manual) Monocytes # (Manual) PT INR D-Dimer Heparin Anti-Xa Level POC ABG pH ABG pH POC ABG pCO2 POC ABG pO2 ABG pO2 ABG HCO3 ABG O2 Saturation ABG Base Excess ABG Hemoglobin Oxyhemoglobin Sodium Potassium Chloride Carbon Dioxide BUN Creatinine Glucose POC Glucose Lactic Acid 3.30 H* 3.00 H* Calcium Ionized Calcium Phosphorus Magnesium Iron TIBC Ferritin Total Bilirubin Direct Bilirubin AST ALT Alkaline Phosphatase Total Creatine Kinase CK-MB (CK-2) Troponin T 0.047 H D C-Reactive Protein Total Protein Albumin Triglycerides 395 H LDL Cholesterol Direct 10 L HDL Cholesterol 7 L Free T4 PTH Intact Urine WBC (Auto) Urine Creatinine Salicylates Acetaminophen Crossmatch 03/17/19 03/17/19 03/17/19 03:45 03:45 03:45 WBC RBC Hgb Hct MCV MCHC RDW Plt Count Lymph % (Auto) [place] % (Auto) Lymph # [place] # Seg Neutrophils % Seg Neuts % (Manual) Lymphocytes % (Manual) Monocytes % (Manual) Nucleated RBC % Seg Neutrophils # Seg Neutrophils # Man Lymphocytes # (Manual) Monocytes # (Manual) PT INR D-Dimer Heparin Anti-Xa Level POC ABG pH ABG pH POC ABG pCO2 POC ABG pO2 ABG pO2 ABG HCO3 ABG O2 Saturation ABG Base Excess ABG Hemoglobin Oxyhemoglobin Sodium 131 L Potassium Chloride 88.9 L Carbon Dioxide BUN 53 H Creatinine 7.1 H Glucose POC Glucose Lactic Acid 4.10 H* Calcium 5.4 L* D Ionized Calcium Phosphorus 7.30 H Magnesium 1.60 L Iron TIBC Ferritin Total Bilirubin 5.90 H Direct Bilirubin AST 801 H ALT 109 H Alkaline Phosphatase Total Creatine Kinase 18575 H 69588 H CK-MB (CK-2) 41.5 H Troponin T 0.054 H C-Reactive Protein Total Protein 4.5 L Albumin 2.0 L Triglycerides LDL Cholesterol Direct HDL Cholesterol Free T4 PTH Intact Urine WBC (Auto) Urine Creatinine Salicylates Acetaminophen Crossmatch 03/17/19 03/17/19 03/17/19 05:47 07:16 07:16 WBC RBC Hgb Hct MCV MCHC RDW Plt Count Lymph % (Auto) [place] % (Auto) Lymph # [place] # Seg Neutrophils % Seg Neuts % (Manual) Lymphocytes % (Manual) Monocytes % (Manual) Nucleated RBC % Seg Neutrophils # Seg Neutrophils # Man Lymphocytes # (Manual) Monocytes # (Manual) PT INR D-Dimer Heparin Anti-Xa Level POC ABG pH 7.193 L ABG pH POC ABG pCO2 45.2 H POC ABG pO2 65 L ABG pO2 ABG HCO3 ABG O2 Saturation ABG Base Excess ABG Hemoglobin Oxyhemoglobin Sodium Potassium Chloride Carbon Dioxide BUN Creatinine Glucose POC Glucose Lactic Acid 5.50 H* Calcium Ionized Calcium Phosphorus Magnesium Iron TIBC Ferritin Total Bilirubin Direct Bilirubin AST ALT Alkaline Phosphatase Total Creatine Kinase 27922 H CK-MB (CK-2) 54.3 H Troponin T 0.058 H C-Reactive Protein Total Protein Albumin Triglycerides LDL Cholesterol Direct HDL Cholesterol Free T4 PTH Intact Urine WBC (Auto) Urine Creatinine Salicylates Acetaminophen Crossmatch 03/17/19 03/17/19 03/17/19 11:52 12:51 13:01 WBC RBC Hgb Hct MCV MCHC RDW Plt Count Lymph % (Auto) [place] % (Auto) Lymph # [place] # Seg Neutrophils % Seg Neuts % (Manual) Lymphocytes % (Manual) Monocytes % (Manual) Nucleated RBC % Seg Neutrophils # Seg Neutrophils # Man Lymphocytes # (Manual) Monocytes # (Manual) PT INR D-Dimer Heparin Anti-Xa Level POC ABG pH 7.154 L ABG pH POC ABG pCO2 34.3 L POC ABG pO2 73 L ABG pO2 ABG HCO3 ABG O2 Saturation ABG Base Excess ABG Hemoglobin Oxyhemoglobin Sodium Potassium Chloride Carbon Dioxide BUN Creatinine Glucose POC Glucose 60 L Lactic Acid 8.20 H* Calcium Ionized Calcium Phosphorus Magnesium Iron TIBC Ferritin Total Bilirubin Direct Bilirubin AST ALT Alkaline Phosphatase Total Creatine Kinase CK-MB (CK-2) Troponin T C-Reactive Protein Total Protein Albumin Triglycerides LDL Cholesterol Direct HDL Cholesterol Free T4 PTH Intact Urine WBC (Auto) Urine Creatinine Salicylates Acetaminophen Crossmatch 03/17/19 03/17/19 03/17/19 14:37 14:37 14:37 WBC 29.3 H RBC Hgb Hct MCV MCHC RDW 15.8 H Plt Count 45 L Lymph % (Auto) [place] % (Auto) Lymph # [place] # Seg Neutrophils % Seg Neuts % (Manual) 81.0 H Lymphocytes % (Manual) 1.0 L Monocytes % (Manual) 15.0 H Nucleated RBC % Seg Neutrophils # Seg Neutrophils # Man 23.7 H Lymphocytes # (Manual) 0.3 L Monocytes # (Manual) 4.4 H PT INR D-Dimer Heparin Anti-Xa Level POC ABG pH ABG pH POC ABG pCO2 POC ABG pO2 ABG pO2 ABG HCO3 ABG O2 Saturation ABG Base Excess ABG Hemoglobin Oxyhemoglobin Sodium Potassium Chloride Carbon Dioxide BUN Creatinine Glucose POC Glucose Lactic Acid 4.90 H* Calcium Ionized Calcium Phosphorus Magnesium Iron TIBC Ferritin Total Bilirubin Direct Bilirubin AST ALT Alkaline Phosphatase Total Creatine Kinase CK-MB (CK-2) Troponin T C-Reactive Protein 24.90 H Total Protein Albumin Triglycerides LDL Cholesterol Direct HDL Cholesterol Free T4 PTH Intact Urine WBC (Auto) Urine Creatinine Salicylates Acetaminophen Crossmatch 03/17/19 03/17/19 03/17/19 16:05 16:05 17:02 WBC RBC Hgb Hct MCV MCHC RDW Plt Count Lymph % (Auto) [place] % (Auto) Lymph # [place] # Seg Neutrophils % Seg Neuts % (Manual) Lymphocytes % (Manual) Monocytes % (Manual) Nucleated RBC % Seg Neutrophils # Seg Neutrophils # Man Lymphocytes # (Manual) Monocytes # (Manual) PT INR D-Dimer Heparin Anti-Xa Level POC ABG pH 7.183 L ABG pH POC ABG pCO2 POC ABG pO2 65 L ABG pO2 ABG HCO3 ABG O2 Saturation ABG Base Excess ABG Hemoglobin Oxyhemoglobin Sodium Potassium Chloride Carbon Dioxide BUN Creatinine Glucose POC Glucose Lactic Acid Calcium Ionized Calcium Phosphorus Magnesium Iron TIBC Ferritin Total Bilirubin Direct Bilirubin AST ALT Alkaline Phosphatase Total Creatine Kinase CK-MB (CK-2) Troponin T C-Reactive Protein Total Protein Albumin Triglycerides LDL Cholesterol Direct HDL Cholesterol Free T4 PTH Intact Urine WBC (Auto) 30.0 H Urine Creatinine 106.6 H Salicylates Acetaminophen Crossmatch 03/18/19 03/18/19 03/18/19 05:12 05:16 05:53 WBC RBC Hgb Hct MCV MCHC RDW Plt Count Lymph % (Auto) [place] % (Auto) Lymph # [place] # Seg Neutrophils % Seg Neuts % (Manual) Lymphocytes % (Manual) Monocytes % (Manual) Nucleated RBC % Seg Neutrophils # Seg Neutrophils # Man Lymphocytes # (Manual) Monocytes # (Manual) PT INR D-Dimer Heparin Anti-Xa Level POC ABG pH 7.257 L ABG pH POC ABG pCO2 31.6 L POC ABG pO2 69 L ABG pO2 ABG HCO3 ABG O2 Saturation ABG Base Excess ABG Hemoglobin Oxyhemoglobin Sodium Potassium Chloride Carbon Dioxide BUN Creatinine Glucose POC Glucose 141 H Lactic Acid 5.00 H* Calcium Ionized Calcium Phosphorus Magnesium Iron TIBC Ferritin Total Bilirubin Direct Bilirubin AST ALT Alkaline Phosphatase Total Creatine Kinase CK-MB (CK-2) Troponin T C-Reactive Protein Total Protein Albumin Triglycerides LDL Cholesterol Direct HDL Cholesterol Free T4 PTH Intact Urine WBC (Auto) Urine Creatinine Salicylates Acetaminophen Crossmatch 03/18/19 03/18/19 03/18/19 06:57 08:40 08:40 WBC 31.7 H RBC Hgb Hct MCV MCHC RDW 15.5 H Plt Count 35 L Lymph % (Auto) [place] % (Auto) Lymph # [place] # Seg Neutrophils % Seg Neuts % (Manual) Lymphocytes % (Manual) Monocytes % (Manual) Nucleated RBC % Seg Neutrophils # Seg Neutrophils # Man Lymphocytes # (Manual) Monocytes # (Manual) PT INR D-Dimer Heparin Anti-Xa Level POC ABG pH ABG pH POC ABG pCO2 POC ABG pO2 ABG pO2 ABG HCO3 ABG O2 Saturation ABG Base Excess ABG Hemoglobin Oxyhemoglobin Sodium 132 L Potassium 5.5 H D Chloride 88.5 L Carbon Dioxide 18 L BUN 71 H Creatinine 8.1 H Glucose 205 H POC Glucose Lactic Acid 5.00 H* Calcium 4.1 L* D Ionized Calcium Phosphorus Magnesium 2.40 H Iron TIBC Ferritin Total Bilirubin 7.50 H Direct Bilirubin AST 1088 H ALT 159 H Alkaline Phosphatase 190 H Total Creatine Kinase 005160 H CK-MB (CK-2) Troponin T C-Reactive Protein Total Protein 4.7 L Albumin 1.8 L Triglycerides LDL Cholesterol Direct HDL Cholesterol Free T4 PTH Intact Urine WBC (Auto) Urine Creatinine Salicylates Acetaminophen Crossmatch 03/18/19 03/18/19 03/18/19 12:33 12:50 13:19 WBC RBC Hgb Hct MCV MCHC RDW Plt Count Lymph % (Auto) [place] % (Auto) Lymph # [place] # Seg Neutrophils % Seg Neuts % (Manual) Lymphocytes % (Manual) Monocytes % (Manual) Nucleated RBC % Seg Neutrophils # Seg Neutrophils # Man Lymphocytes # (Manual) Monocytes # (Manual) PT INR D-Dimer Heparin Anti-Xa Level POC ABG pH 7.282 L ABG pH POC ABG pCO2 POC ABG pO2 67 L ABG pO2 ABG HCO3 ABG O2 Saturation ABG Base Excess ABG Hemoglobin Oxyhemoglobin Sodium Potassium Chloride Carbon Dioxide BUN Creatinine Glucose POC Glucose 129 H Lactic Acid 3.30 H* Calcium Ionized Calcium Phosphorus Magnesium Iron TIBC Ferritin Total Bilirubin Direct Bilirubin AST ALT Alkaline Phosphatase Total Creatine Kinase CK-MB (CK-2) Troponin T C-Reactive Protein Total Protein Albumin Triglycerides LDL Cholesterol Direct HDL Cholesterol Free T4 PTH Intact Urine WBC (Auto) Urine Creatinine Salicylates Acetaminophen Crossmatch 03/18/19 03/18/19 03/18/19 13:19 16:50 18:11 WBC RBC Hgb Hct MCV MCHC RDW Plt Count Lymph % (Auto) [place] % (Auto) Lymph # [place] # Seg Neutrophils % Seg Neuts % (Manual) Lymphocytes % (Manual) Monocytes % (Manual) Nucleated RBC % Seg Neutrophils # Seg Neutrophils # Man Lymphocytes # (Manual) Monocytes # (Manual) PT INR D-Dimer Heparin Anti-Xa Level POC ABG pH ABG pH POC ABG pCO2 POC ABG pO2 59 L ABG pO2 ABG HCO3 ABG O2 Saturation ABG Base Excess ABG Hemoglobin Oxyhemoglobin Sodium Potassium Chloride Carbon Dioxide BUN Creatinine Glucose POC Glucose 151 H Lactic Acid Calcium 4.2 L* Ionized Calcium Phosphorus Magnesium Iron TIBC Ferritin Total Bilirubin Direct Bilirubin AST ALT Alkaline Phosphatase Total Creatine Kinase 073068 H CK-MB (CK-2) Troponin T C-Reactive Protein Total Protein Albumin Triglycerides LDL Cholesterol Direct HDL Cholesterol Free T4 PTH Intact Urine WBC (Auto) Urine Creatinine Salicylates Acetaminophen Crossmatch 03/18/19 03/18/19 03/19/19 18:20 23:39 01:42 WBC RBC Hgb Hct MCV MCHC RDW Plt Count Lymph % (Auto) [place] % (Auto) Lymph # [place] # Seg Neutrophils % Seg Neuts % (Manual) Lymphocytes % (Manual) Monocytes % (Manual) Nucleated RBC % Seg Neutrophils # Seg Neutrophils # Man Lymphocytes # (Manual) Monocytes # (Manual) PT INR D-Dimer Heparin Anti-Xa Level POC ABG pH 7.345 L ABG pH 7.285 L POC ABG pCO2 POC ABG pO2 59 L ABG pO2 44.0 L ABG HCO3 ABG O2 Saturation 70.9 L ABG Base Excess -5.7 L ABG Hemoglobin 11.9 L Oxyhemoglobin 69.6 L Sodium Potassium Chloride Carbon Dioxide BUN Creatinine Glucose POC Glucose 152 H Lactic Acid Calcium Ionized Calcium Phosphorus Magnesium Iron TIBC Ferritin Total Bilirubin Direct Bilirubin AST ALT Alkaline Phosphatase Total Creatine Kinase CK-MB (CK-2) Troponin T C-Reactive Protein Total Protein Albumin Triglycerides LDL Cholesterol Direct HDL Cholesterol Free T4 PTH Intact Urine WBC (Auto) Urine Creatinine Salicylates Acetaminophen Crossmatch 03/19/19 03/19/19 03/19/19 04:00 04:00 05:35 WBC 36.5 H RBC Hgb Hct MCV MCHC RDW 15.8 H Plt Count 35 L Lymph % (Auto) [place] % (Auto) Lymph # [place] # Seg Neutrophils % Seg Neuts % (Manual) Lymphocytes % (Manual) Monocytes % (Manual) Nucleated RBC % Seg Neutrophils # Seg Neutrophils # Man Lymphocytes # (Manual) Monocytes # (Manual) PT INR D-Dimer Heparin Anti-Xa Level POC ABG pH ABG pH 7.265 L POC ABG pCO2 POC ABG pO2 ABG pO2 35.4 L* ABG HCO3 ABG O2 Saturation 54.4 L ABG Base Excess -6.7 L ABG Hemoglobin 12.9 L Oxyhemoglobin 53.4 L Sodium 132 L Potassium 5.7 H Chloride 89.8 L Carbon Dioxide 19 L BUN 62 H Creatinine 6.4 H Glucose 151 H POC Glucose Lactic Acid Calcium 5.2 L* D Ionized Calcium Phosphorus Magnesium Iron TIBC Ferritin Total Bilirubin 7.80 H Direct Bilirubin AST 682 H ALT 130 H Alkaline Phosphatase 167 H Total Creatine Kinase CK-MB (CK-2) Troponin T C-Reactive Protein Total Protein 4.8 L Albumin 2.3 L Triglycerides LDL Cholesterol Direct HDL Cholesterol Free T4 PTH Intact Urine WBC (Auto) Urine Creatinine Salicylates Acetaminophen Crossmatch 03/19/19 03/19/19 03/19/19 05:49 09:16 09:50 WBC RBC Hgb Hct MCV MCHC RDW Plt Count Lymph % (Auto) [place] % (Auto) Lymph # [place] # Seg Neutrophils % Seg Neuts % (Manual) Lymphocytes % (Manual) Monocytes % (Manual) Nucleated RBC % Seg Neutrophils # Seg Neutrophils # Man Lymphocytes # (Manual) Monocytes # (Manual) PT INR D-Dimer Heparin Anti-Xa Level POC ABG pH 7.222 L ABG pH POC ABG pCO2 56.6 H POC ABG pO2 ABG pO2 ABG HCO3 ABG O2 Saturation ABG Base Excess ABG Hemoglobin Oxyhemoglobin Sodium Potassium Chloride Carbon Dioxide BUN Creatinine Glucose POC Glucose 154 H Lactic Acid 2.70 H* Calcium Ionized Calcium Phosphorus Magnesium Iron TIBC Ferritin Total Bilirubin Direct Bilirubin AST ALT Alkaline Phosphatase Total Creatine Kinase CK-MB (CK-2) Troponin T C-Reactive Protein Total Protein Albumin Triglycerides LDL Cholesterol Direct HDL Cholesterol Free T4 PTH Intact Urine WBC (Auto) Urine Creatinine Salicylates Acetaminophen Crossmatch 03/19/19 03/19/19 03/19/19 09:50 11:28 17:58 WBC RBC Hgb Hct MCV MCHC RDW Plt Count Lymph % (Auto) [place] % (Auto) Lymph # [place] # Seg Neutrophils % Seg Neuts % (Manual) Lymphocytes % (Manual) Monocytes % (Manual) Nucleated RBC % Seg Neutrophils # Seg Neutrophils # Man Lymphocytes # (Manual) Monocytes # (Manual) PT INR D-Dimer Heparin Anti-Xa Level POC ABG pH 7.250 L ABG pH POC ABG pCO2 52.6 H POC ABG pO2 ABG pO2 ABG HCO3 ABG O2 Saturation ABG Base Excess ABG Hemoglobin Oxyhemoglobin Sodium Potassium Chloride Carbon Dioxide BUN Creatinine Glucose POC Glucose 160 H Lactic Acid Calcium Ionized Calcium Phosphorus Magnesium Iron TIBC Ferritin Total Bilirubin Direct Bilirubin AST ALT Alkaline Phosphatase Total Creatine Kinase 45100 H CK-MB (CK-2) Troponin T C-Reactive Protein Total Protein Albumin Triglycerides LDL Cholesterol Direct HDL Cholesterol Free T4 PTH Intact Urine WBC (Auto) Urine Creatinine Salicylates Acetaminophen Crossmatch 03/19/19 03/19/19 03/20/19 19:48 21:03 02:16 WBC RBC Hgb Hct MCV MCHC RDW Plt Count Lymph % (Auto) [place] % (Auto) Lymph # [place] # Seg Neutrophils % Seg Neuts % (Manual) Lymphocytes % (Manual) Monocytes % (Manual) Nucleated RBC % Seg Neutrophils # Seg Neutrophils # Man Lymphocytes # (Manual) Monocytes # (Manual) PT INR D-Dimer Heparin Anti-Xa Level POC ABG pH 7.279 L ABG pH POC ABG pCO2 50.3 H POC ABG pO2 129 H ABG pO2 ABG HCO3 ABG O2 Saturation ABG Base Excess ABG Hemoglobin Oxyhemoglobin Sodium Potassium Chloride Carbon Dioxide BUN Creatinine Glucose POC Glucose 119 H 119 H Lactic Acid Calcium Ionized Calcium Phosphorus Magnesium Iron TIBC Ferritin Total Bilirubin Direct Bilirubin AST ALT Alkaline Phosphatase Total Creatine Kinase CK-MB (CK-2) Troponin T C-Reactive Protein Total Protein Albumin Triglycerides LDL Cholesterol Direct HDL Cholesterol Free T4 PTH Intact Urine WBC (Auto) Urine Creatinine Salicylates Acetaminophen Crossmatch 03/20/19 03/20/19 03/20/19 04:23 05:05 09:30 WBC 36.3 H RBC Hgb Hct MCV MCHC RDW 15.5 H Plt Count 29 L Lymph % (Auto) [place] % (Auto) Lymph # [place] # Seg Neutrophils % Seg Neuts % (Manual) Lymphocytes % (Manual) Monocytes % (Manual) Nucleated RBC % Seg Neutrophils # Seg Neutrophils # Man Lymphocytes # (Manual) Monocytes # (Manual) PT INR D-Dimer Heparin Anti-Xa Level POC ABG pH ABG pH POC ABG pCO2 POC ABG pO2 280 H ABG pO2 ABG HCO3 ABG O2 Saturation ABG Base Excess ABG Hemoglobin Oxyhemoglobin Sodium Potassium Chloride Carbon Dioxide BUN Creatinine Glucose POC Glucose 115 H Lactic Acid Calcium Ionized Calcium Phosphorus Magnesium Iron TIBC Ferritin Total Bilirubin Direct Bilirubin AST ALT Alkaline Phosphatase Total Creatine Kinase CK-MB (CK-2) Troponin T C-Reactive Protein Total Protein Albumin Triglycerides LDL Cholesterol Direct HDL Cholesterol Free T4 PTH Intact Urine WBC (Auto) Urine Creatinine Salicylates Acetaminophen Crossmatch 03/20/19 03/20/19 03/20/19 09:30 09:30 11:34 WBC RBC Hgb Hct MCV MCHC RDW Plt Count Lymph % (Auto) [place] % (Auto) Lymph # [place] # Seg Neutrophils % Seg Neuts % (Manual) Lymphocytes % (Manual) Monocytes % (Manual) Nucleated RBC % Seg Neutrophils # Seg Neutrophils # Man Lymphocytes # (Manual) Monocytes # (Manual) PT INR D-Dimer Heparin Anti-Xa Level POC ABG pH ABG pH POC ABG pCO2 POC ABG pO2 ABG pO2 ABG HCO3 ABG O2 Saturation ABG Base Excess ABG Hemoglobin Oxyhemoglobin Sodium 131 L Potassium Chloride 92.3 L Carbon Dioxide 20 L BUN 68 H Creatinine 6.1 H Glucose 164 H POC Glucose 141 H Lactic Acid Calcium 5.3 L* Ionized Calcium Phosphorus Magnesium Iron TIBC Ferritin Total Bilirubin 9.50 H Direct Bilirubin AST 381 H ALT 116 H Alkaline Phosphatase 255 H Total Creatine Kinase 98940 H CK-MB (CK-2) Troponin T C-Reactive Protein Total Protein 5.1 L Albumin 2.3 L Triglycerides LDL Cholesterol Direct HDL Cholesterol Free T4 PTH Intact Urine WBC (Auto) Urine Creatinine Salicylates Acetaminophen Crossmatch 03/20/19 03/20/19 03/20/19 14:41 14:45 18:50 WBC RBC Hgb Hct MCV MCHC RDW Plt Count Lymph % (Auto) [place] % (Auto) Lymph # [place] # Seg Neutrophils % Seg Neuts % (Manual) Lymphocytes % (Manual) Monocytes % (Manual) Nucleated RBC % Seg Neutrophils # Seg Neutrophils # Man Lymphocytes # (Manual) Monocytes # (Manual) PT INR D-Dimer Heparin Anti-Xa Level POC ABG pH ABG pH POC ABG pCO2 POC ABG pO2 ABG pO2 ABG HCO3 ABG O2 Saturation ABG Base Excess ABG Hemoglobin Oxyhemoglobin Sodium Potassium Chloride Carbon Dioxide BUN Creatinine Glucose POC Glucose 117 H Lactic Acid 2.90 H* Calcium Ionized Calcium Phosphorus Magnesium Iron TIBC Ferritin Total Bilirubin Direct Bilirubin AST ALT Alkaline Phosphatase Total Creatine Kinase CK-MB (CK-2) Troponin T C-Reactive Protein 13.30 H Total Protein Albumin Triglycerides LDL Cholesterol Direct HDL Cholesterol Free T4 PTH Intact Urine WBC (Auto) Urine Creatinine Salicylates Acetaminophen Crossmatch 03/20/19 03/21/19 03/21/19 21:55 04:26 04:26 WBC 37.8 H RBC Hgb Hct MCV MCHC RDW 15.4 H Plt Count 36 L Lymph % (Auto) [place] % (Auto) Lymph # [place] # Seg Neutrophils % Seg Neuts % (Manual) 93.0 H Lymphocytes % (Manual) 3.0 L Monocytes % (Manual) Nucleated RBC % 1.0 H Seg Neutrophils # 34.6 H Seg Neutrophils # Man 35.2 H Lymphocytes # (Manual) 1.1 L Monocytes # (Manual) PT INR D-Dimer Heparin Anti-Xa Level POC ABG pH ABG pH POC ABG pCO2 POC ABG pO2 ABG pO2 ABG HCO3 ABG O2 Saturation ABG Base Excess ABG Hemoglobin Oxyhemoglobin Sodium 131 L Potassium Chloride 90.7 L Carbon Dioxide 21 L BUN 69 H Creatinine 5.7 H Glucose 170 H POC Glucose 128 H Lactic Acid Calcium 6.1 L D Ionized Calcium Phosphorus Magnesium Iron TIBC Ferritin Total Bilirubin 9.50 H Direct Bilirubin AST 308 H ALT 124 H Alkaline Phosphatase 327 H Total Creatine Kinase 93904 H CK-MB (CK-2) Troponin T C-Reactive Protein Total Protein 5.7 L Albumin 2.6 L Triglycerides LDL Cholesterol Direct HDL Cholesterol Free T4 PTH Intact Urine WBC (Auto) Urine Creatinine Salicylates Acetaminophen Crossmatch 03/21/19 03/21/19 03/21/19 05:17 05:39 08:29 WBC RBC Hgb Hct MCV MCHC RDW Plt Count Lymph % (Auto) [place] % (Auto) Lymph # [place] # Seg Neutrophils % Seg Neuts % (Manual) Lymphocytes % (Manual) Monocytes % (Manual) Nucleated RBC % Seg Neutrophils # Seg Neutrophils # Man Lymphocytes # (Manual) Monocytes # (Manual) PT INR D-Dimer Heparin Anti-Xa Level POC ABG pH ABG pH POC ABG pCO2 POC ABG pO2 209 H ABG pO2 ABG HCO3 ABG O2 Saturation ABG Base Excess ABG Hemoglobin Oxyhemoglobin Sodium Potassium Chloride Carbon Dioxide BUN Creatinine Glucose POC Glucose 145 H Lactic Acid Calcium Ionized Calcium Phosphorus Magnesium Iron TIBC Ferritin Total Bilirubin Direct Bilirubin AST ALT Alkaline Phosphatase Total Creatine Kinase 33439 H CK-MB (CK-2) Troponin T C-Reactive Protein Total Protein Albumin Triglycerides LDL Cholesterol Direct HDL Cholesterol Free T4 PTH Intact Urine WBC (Auto) Urine Creatinine Salicylates Acetaminophen Crossmatch 03/21/19 03/21/19 03/21/19 08:29 11:43 12:00 WBC RBC Hgb Hct MCV MCHC RDW Plt Count Lymph % (Auto) [place] % (Auto) Lymph # [place] # Seg Neutrophils % Seg Neuts % (Manual) Lymphocytes % (Manual) Monocytes % (Manual) Nucleated RBC % Seg Neutrophils # Seg Neutrophils # Man Lymphocytes # (Manual) Monocytes # (Manual) PT INR D-Dimer Heparin Anti-Xa Level POC ABG pH ABG pH POC ABG pCO2 POC ABG pO2 ABG pO2 ABG HCO3 ABG O2 Saturation ABG Base Excess ABG Hemoglobin Oxyhemoglobin Sodium Potassium Chloride Carbon Dioxide BUN Creatinine Glucose POC Glucose 123 H Lactic Acid 2.60 H* 2.20 H* Calcium Ionized Calcium Phosphorus Magnesium Iron TIBC Ferritin Total Bilirubin Direct Bilirubin AST ALT Alkaline Phosphatase Total Creatine Kinase CK-MB (CK-2) Troponin T C-Reactive Protein Total Protein Albumin Triglycerides LDL Cholesterol Direct HDL Cholesterol Free T4 PTH Intact Urine WBC (Auto) Urine Creatinine Salicylates Acetaminophen Crossmatch 03/21/19 03/21/19 03/21/19 14:11 18:28 19:32 WBC RBC Hgb Hct MCV MCHC RDW Plt Count Lymph % (Auto) [place] % (Auto) Lymph # [place] # Seg Neutrophils % Seg Neuts % (Manual) Lymphocytes % (Manual) Monocytes % (Manual) Nucleated RBC % Seg Neutrophils # Seg Neutrophils # Man Lymphocytes # (Manual) Monocytes # (Manual) PT INR D-Dimer Heparin Anti-Xa Level POC ABG pH 7.293 L ABG pH POC ABG pCO2 POC ABG pO2 ABG pO2 ABG HCO3 ABG O2 Saturation ABG Base Excess ABG Hemoglobin Oxyhemoglobin Sodium Potassium Chloride Carbon Dioxide BUN Creatinine Glucose POC Glucose 153 H Lactic Acid 2.10 H* Calcium Ionized Calcium Phosphorus Magnesium Iron TIBC Ferritin Total Bilirubin Direct Bilirubin AST ALT Alkaline Phosphatase Total Creatine Kinase CK-MB (CK-2) Troponin T C-Reactive Protein Total Protein Albumin Triglycerides LDL Cholesterol Direct HDL Cholesterol Free T4 PTH Intact Urine WBC (Auto) Urine Creatinine Salicylates Acetaminophen Crossmatch 03/21/19 03/22/19 03/22/19 23:38 05:08 05:51 WBC RBC Hgb Hct MCV MCHC RDW Plt Count Lymph % (Auto) [place] % (Auto) Lymph # [place] # Seg Neutrophils % Seg Neuts % (Manual) Lymphocytes % (Manual) Monocytes % (Manual) Nucleated RBC % Seg Neutrophils # Seg Neutrophils # Man Lymphocytes # (Manual) Monocytes # (Manual) PT INR D-Dimer Heparin Anti-Xa Level POC ABG pH 7.283 L ABG pH POC ABG pCO2 POC ABG pO2 53 L ABG pO2 ABG HCO3 ABG O2 Saturation ABG Base Excess ABG Hemoglobin Oxyhemoglobin Sodium Potassium Chloride Carbon Dioxide BUN Creatinine Glucose POC Glucose 149 H 131 H Lactic Acid Calcium Ionized Calcium Phosphorus Magnesium Iron TIBC Ferritin Total Bilirubin Direct Bilirubin AST ALT Alkaline Phosphatase Total Creatine Kinase CK-MB (CK-2) Troponin T C-Reactive Protein Total Protein Albumin Triglycerides LDL Cholesterol Direct HDL Cholesterol Free T4 PTH Intact Urine WBC (Auto) Urine Creatinine Salicylates Acetaminophen Crossmatch 03/22/19 03/22/19 03/22/19 08:00 08:00 18:19 WBC 36.7 H RBC Hgb 11.0 L Hct 33.5 L MCV MCHC RDW 15.5 H Plt Count 43 L Lymph % (Auto) [place] % (Auto) Lymph # [place] # Seg Neutrophils % Seg Neuts % (Manual) 87.0 H Lymphocytes % (Manual) 7.0 L Monocytes % (Manual) Nucleated RBC % Seg Neutrophils # Seg Neutrophils # Man 31.9 H Lymphocytes # (Manual) Monocytes # (Manual) PT INR D-Dimer Heparin Anti-Xa Level POC ABG pH ABG pH POC ABG pCO2 46.4 H POC ABG pO2 108 H ABG pO2 ABG HCO3 ABG O2 Saturation ABG Base Excess ABG Hemoglobin Oxyhemoglobin Sodium 132 L Potassium 5.6 H Chloride 89.6 L Carbon Dioxide 20 L BUN 101 H Creatinine 7.4 H Glucose 124 H POC Glucose Lactic Acid Calcium 5.2 L* Ionized Calcium Phosphorus Magnesium Iron TIBC Ferritin Total Bilirubin 2.80 H Direct Bilirubin AST 119 H ALT 86 H Alkaline Phosphatase 245 H Total Creatine Kinase CK-MB (CK-2) Troponin T C-Reactive Protein Total Protein 5.6 L Albumin 2.5 L Triglycerides LDL Cholesterol Direct HDL Cholesterol Free T4 PTH Intact Urine WBC (Auto) Urine Creatinine Salicylates Acetaminophen Crossmatch 03/22/19 03/23/19 03/23/19 20:37 04:49 05:28 WBC 35.9 H RBC Hgb 10.8 L Hct 33.2 L MCV MCHC RDW 15.5 H Plt Count 49 L Lymph % (Auto) [place] % (Auto) Lymph # [place] # Seg Neutrophils % Seg Neuts % (Manual) 81.0 H Lymphocytes % (Manual) 3.5 L Monocytes % (Manual) Nucleated RBC % Seg Neutrophils # Seg Neutrophils # Man 29.1 H Lymphocytes # (Manual) Monocytes # (Manual) 1.4 H PT INR D-Dimer Heparin Anti-Xa Level POC ABG pH 7.296 L ABG pH POC ABG pCO2 46.2 H POC ABG pO2 ABG pO2 ABG HCO3 ABG O2 Saturation ABG Base Excess ABG Hemoglobin Oxyhemoglobin Sodium 129 L Potassium 5.2 H Chloride 91.1 L Carbon Dioxide BUN 91 H Creatinine 6.6 H Glucose 190 H POC Glucose Lactic Acid Calcium 5.3 L* Ionized Calcium Phosphorus Magnesium Iron TIBC Ferritin Total Bilirubin 1.80 H Direct Bilirubin AST 80 H ALT 62 H Alkaline Phosphatase 209 H Total Creatine Kinase 9758 H CK-MB (CK-2) Troponin T C-Reactive Protein Total Protein 5.2 L Albumin 2.2 L Triglycerides LDL Cholesterol Direct HDL Cholesterol Free T4 PTH Intact Urine WBC (Auto) Urine Creatinine Salicylates Acetaminophen Crossmatch 03/23/19 03/23/19 03/23/19 05:28 05:31 11:33 WBC 29.7 H RBC 3.59 L Hgb 10.1 L Hct 31.1 L MCV MCHC RDW 15.4 H Plt Count 47 L Lymph % (Auto) [place] % (Auto) Lymph # [place] # Seg Neutrophils % Seg Neuts % (Manual) 89.0 H Lymphocytes % (Manual) 6.0 L Monocytes % (Manual) Nucleated RBC % 1.0 H Seg Neutrophils # Seg Neutrophils # Man 26.4 H Lymphocytes # (Manual) Monocytes # (Manual) PT INR D-Dimer Heparin Anti-Xa Level POC ABG pH ABG pH POC ABG pCO2 POC ABG pO2 ABG pO2 ABG HCO3 ABG O2 Saturation ABG Base Excess ABG Hemoglobin Oxyhemoglobin Sodium Potassium Chloride Carbon Dioxide BUN Creatinine Glucose POC Glucose 122 H 113 H Lactic Acid Calcium Ionized Calcium Phosphorus Magnesium Iron TIBC Ferritin Total Bilirubin Direct Bilirubin AST ALT Alkaline Phosphatase Total Creatine Kinase CK-MB (CK-2) Troponin T C-Reactive Protein Total Protein Albumin Triglycerides LDL Cholesterol Direct HDL Cholesterol Free T4 PTH Intact Urine WBC (Auto) Urine Creatinine Salicylates Acetaminophen Crossmatch 03/23/19 03/24/19 03/24/19 17:47 00:00 04:50 WBC 35.0 H RBC Hgb 10.4 L Hct 32.4 L MCV MCHC RDW Plt Count 60 L Lymph % (Auto) [place] % (Auto) Lymph # [place] # Seg Neutrophils % Seg Neuts % (Manual) 93.0 H Lymphocytes % (Manual) 5.0 L Monocytes % (Manual) Nucleated RBC % 7.0 H Seg Neutrophils # Seg Neutrophils # Man 32.6 H Lymphocytes # (Manual) Monocytes # (Manual) PT INR D-Dimer Heparin Anti-Xa Level POC ABG pH ABG pH POC ABG pCO2 POC ABG pO2 ABG pO2 ABG HCO3 ABG O2 Saturation ABG Base Excess ABG Hemoglobin Oxyhemoglobin Sodium Potassium Chloride Carbon Dioxide BUN Creatinine Glucose POC Glucose 111 H 108 H Lactic Acid Calcium Ionized Calcium Phosphorus Magnesium Iron TIBC Ferritin Total Bilirubin Direct Bilirubin AST ALT Alkaline Phosphatase Total Creatine Kinase CK-MB (CK-2) Troponin T C-Reactive Protein Total Protein Albumin Triglycerides LDL Cholesterol Direct HDL Cholesterol Free T4 PTH Intact Urine WBC (Auto) Urine Creatinine Salicylates Acetaminophen Crossmatch 03/24/19 03/24/19 03/24/19 04:50 05:06 12:55 WBC RBC Hgb Hct MCV MCHC RDW Plt Count Lymph % (Auto) [place] % (Auto) Lymph # [place] # Seg Neutrophils % Seg Neuts % (Manual) Lymphocytes % (Manual) Monocytes % (Manual) Nucleated RBC % Seg Neutrophils # Seg Neutrophils # Man Lymphocytes # (Manual) Monocytes # (Manual) PT INR D-Dimer Heparin Anti-Xa Level POC ABG pH ABG pH POC ABG pCO2 POC ABG pO2 ABG pO2 ABG HCO3 ABG O2 Saturation ABG Base Excess ABG Hemoglobin Oxyhemoglobin Sodium 134 L Potassium 5.1 H Chloride 95.3 L Carbon Dioxide 21 L BUN 85 H Creatinine 6.4 H Glucose 109 H POC Glucose 112 H 110 H Lactic Acid Calcium 5.8 L* Ionized Calcium Phosphorus Magnesium Iron TIBC Ferritin Total Bilirubin Direct Bilirubin AST ALT Alkaline Phosphatase Total Creatine Kinase 5747 H CK-MB (CK-2) Troponin T C-Reactive Protein Total Protein Albumin Triglycerides LDL Cholesterol Direct HDL Cholesterol Free T4 PTH Intact Urine WBC (Auto) Urine Creatinine Salicylates Acetaminophen Crossmatch 03/24/19 03/25/19 03/25/19 23:29 05:00 05:00 WBC RBC Hgb Hct MCV MCHC RDW Plt Count Lymph % (Auto) [place] % (Auto) Lymph # [place] # Seg Neutrophils % Seg Neuts % (Manual) Lymphocytes % (Manual) Monocytes % (Manual) Nucleated RBC % Seg Neutrophils # Seg Neutrophils # Man Lymphocytes # (Manual) Monocytes # (Manual) PT INR D-Dimer Heparin Anti-Xa Level POC ABG pH ABG pH POC ABG pCO2 POC ABG pO2 ABG pO2 ABG HCO3 ABG O2 Saturation ABG Base Excess ABG Hemoglobin Oxyhemoglobin Sodium 133 L Potassium Chloride 94.0 L Carbon Dioxide 21 L BUN 81 H Creatinine 6.4 H Glucose POC Glucose 109 H Lactic Acid Calcium 5.5 L* Ionized Calcium Phosphorus Magnesium Iron TIBC Ferritin Total Bilirubin Direct Bilirubin AST 80 H ALT Alkaline Phosphatase 202 H Total Creatine Kinase 3589 H CK-MB (CK-2) Troponin T C-Reactive Protein Total Protein 5.3 L Albumin 2.4 L Triglycerides LDL Cholesterol Direct HDL Cholesterol Free T4 PTH Intact 329.9 H Urine WBC (Auto) Urine Creatinine Salicylates Acetaminophen Crossmatch 03/25/19 03/25/19 03/26/19 05:00 06:30 04:30 WBC 23.3 H RBC 3.61 L Hgb 10.2 L Hct 31.2 L MCV MCHC RDW Plt Count 57 L Lymph % (Auto) [place] % (Auto) Lymph # [place] # Seg Neutrophils % Seg Neuts % (Manual) 92.0 H Lymphocytes % (Manual) 6.0 L Monocytes % (Manual) Nucleated RBC % Seg Neutrophils # Seg Neutrophils # Man 21.4 H Lymphocytes # (Manual) Monocytes # (Manual) PT INR D-Dimer Heparin Anti-Xa Level POC ABG pH ABG pH 7.326 L POC ABG pCO2 POC ABG pO2 ABG pO2 109.5 H 137.4 H ABG HCO3 18.8 L 18.6 L ABG O2 Saturation ABG Base Excess -4.4 L -6.8 L ABG Hemoglobin 10.1 L 9.9 L Oxyhemoglobin Sodium Potassium Chloride Carbon Dioxide BUN Creatinine Glucose POC Glucose Lactic Acid Calcium Ionized Calcium Phosphorus Magnesium Iron TIBC Ferritin Total Bilirubin Direct Bilirubin AST ALT Alkaline Phosphatase Total Creatine Kinase CK-MB (CK-2) Troponin T C-Reactive Protein Total Protein Albumin Triglycerides LDL Cholesterol Direct HDL Cholesterol Free T4 PTH Intact Urine WBC (Auto) Urine Creatinine Salicylates Acetaminophen Crossmatch 03/26/19 03/26/19 03/26/19 23:22 Unknown Unknown WBC 19.5 H RBC 3.44 L Hgb 9.8 L Hct 29.9 L MCV MCHC RDW Plt Count 85 L Lymph % (Auto) [place] % (Auto) Lymph # [place] # Seg Neutrophils % Seg Neuts % (Manual) 95.0 H Lymphocytes % (Manual) 3.0 L Monocytes % (Manual) Nucleated RBC % Seg Neutrophils # Seg Neutrophils # Man 18.5 H Lymphocytes # (Manual) 0.6 L Monocytes # (Manual) PT INR D-Dimer Heparin Anti-Xa Level POC ABG pH ABG pH POC ABG pCO2 POC ABG pO2 ABG pO2 ABG HCO3 ABG O2 Saturation ABG Base Excess ABG Hemoglobin Oxyhemoglobin Sodium 135 L Potassium 5.2 H D Chloride 92.2 L Carbon Dioxide 18 L BUN 109 H Creatinine 8.5 H Glucose 117 H POC Glucose 69 L Lactic Acid Calcium 4.5 L* D Ionized Calcium Phosphorus Magnesium Iron TIBC Ferritin Total Bilirubin Direct Bilirubin AST ALT Alkaline Phosphatase Total Creatine Kinase 4527 H CK-MB (CK-2) Troponin T C-Reactive Protein Total Protein Albumin Triglycerides LDL Cholesterol Direct HDL Cholesterol Free T4 PTH Intact Urine WBC (Auto) Urine Creatinine Salicylates Acetaminophen Crossmatch 03/27/19 03/27/19 03/27/19 04:30 04:30 09:00 WBC 19.2 H RBC 3.42 L Hgb 9.9 L Hct 30.0 L MCV MCHC RDW Plt Count 84 L Lymph % (Auto) [place] % (Auto) Lymph # [place] # Seg Neutrophils % Seg Neuts % (Manual) Lymphocytes % (Manual) Monocytes % (Manual) Nucleated RBC % Seg Neutrophils # Seg Neutrophils # Man Lymphocytes # (Manual) Monocytes # (Manual) PT INR D-Dimer Heparin Anti-Xa Level POC ABG pH ABG pH POC ABG pCO2 POC ABG pO2 ABG pO2 ABG HCO3 ABG O2 Saturation ABG Base Excess ABG Hemoglobin Oxyhemoglobin Sodium 135 L Potassium Chloride 93.5 L Carbon Dioxide BUN 84 H Creatinine 7.1 H Glucose POC Glucose Lactic Acid Calcium 5.0 L* Ionized Calcium Phosphorus Magnesium Iron TIBC Ferritin Total Bilirubin Direct Bilirubin AST 78 H ALT Alkaline Phosphatase 135 H Total Creatine Kinase 4677 H CK-MB (CK-2) Troponin T C-Reactive Protein Total Protein 4.8 L Albumin 2.3 L Triglycerides 409 H LDL Cholesterol Direct HDL Cholesterol Free T4 PTH Intact Urine WBC (Auto) Urine Creatinine Salicylates Acetaminophen Crossmatch 03/27/19 03/27/19 03/27/19 12:37 14:15 14:15 WBC RBC Hgb 9.7 L Hct 29.5 L MCV MCHC RDW Plt Count 87 L Lymph % (Auto) [place] % (Auto) Lymph # [place] # Seg Neutrophils % Seg Neuts % (Manual) Lymphocytes % (Manual) Monocytes % (Manual) Nucleated RBC % Seg Neutrophils # Seg Neutrophils # Man Lymphocytes # (Manual) Monocytes # (Manual) PT 15.9 H INR 1.30 H D-Dimer Heparin Anti-Xa Level POC ABG pH ABG pH POC ABG pCO2 POC ABG pO2 ABG pO2 ABG HCO3 ABG O2 Saturation ABG Base Excess ABG Hemoglobin Oxyhemoglobin Sodium Potassium Chloride Carbon Dioxide BUN Creatinine Glucose POC Glucose 129 H Lactic Acid Calcium Ionized Calcium Phosphorus Magnesium Iron TIBC Ferritin Total Bilirubin Direct Bilirubin AST ALT Alkaline Phosphatase Total Creatine Kinase CK-MB (CK-2) Troponin T C-Reactive Protein Total Protein Albumin Triglycerides LDL Cholesterol Direct HDL Cholesterol Free T4 PTH Intact Urine WBC (Auto) Urine Creatinine Salicylates Acetaminophen Crossmatch 03/27/19 03/27/19 03/27/19 18:00 19:22 19:23 WBC RBC Hgb Hct MCV MCHC RDW Plt Count Lymph % (Auto) [place] % (Auto) Lymph # [place] # Seg Neutrophils % Seg Neuts % (Manual) Lymphocytes % (Manual) Monocytes % (Manual) Nucleated RBC % Seg Neutrophils # Seg Neutrophils # Man Lymphocytes # (Manual) Monocytes # (Manual) PT INR D-Dimer Heparin Anti-Xa Level < 0.10 L POC ABG pH ABG pH POC ABG pCO2 POC ABG pO2 ABG pO2 ABG HCO3 ABG O2 Saturation ABG Base Excess ABG Hemoglobin Oxyhemoglobin Sodium Potassium Chloride Carbon Dioxide BUN Creatinine Glucose POC Glucose 121 H Lactic Acid Calcium Ionized Calcium Phosphorus Magnesium Iron TIBC Ferritin Total Bilirubin Direct Bilirubin AST ALT Alkaline Phosphatase Total Creatine Kinase 4517 H CK-MB (CK-2) Troponin T C-Reactive Protein Total Protein Albumin Triglycerides LDL Cholesterol Direct HDL Cholesterol Free T4 PTH Intact Urine WBC (Auto) Urine Creatinine Salicylates Acetaminophen Crossmatch 03/27/19 03/27/19 03/28/19 22:10 23:52 03:49 WBC RBC Hgb Hct MCV MCHC RDW Plt Count Lymph % (Auto) [place] % (Auto) Lymph # [place] # Seg Neutrophils % Seg Neuts % (Manual) Lymphocytes % (Manual) Monocytes % (Manual) Nucleated RBC % Seg Neutrophils # Seg Neutrophils # Man Lymphocytes # (Manual) Monocytes # (Manual) PT INR D-Dimer Heparin Anti-Xa Level POC ABG pH 7.338 L ABG pH POC ABG pCO2 33.1 L POC ABG pO2 ABG pO2 ABG HCO3 ABG O2 Saturation ABG Base Excess ABG Hemoglobin Oxyhemoglobin Sodium Potassium Chloride Carbon Dioxide BUN Creatinine Glucose POC Glucose 113 H 117 H Lactic Acid Calcium Ionized Calcium Phosphorus Magnesium Iron TIBC Ferritin Total Bilirubin Direct Bilirubin AST ALT Alkaline Phosphatase Total Creatine Kinase CK-MB (CK-2) Troponin T C-Reactive Protein Total Protein Albumin Triglycerides LDL Cholesterol Direct HDL Cholesterol Free T4 PTH Intact Urine WBC (Auto) Urine Creatinine Salicylates Acetaminophen Crossmatch 03/28/19 03/28/19 03/28/19 05:13 05:13 06:18 WBC RBC Hgb Hct MCV MCHC RDW Plt Count Lymph % (Auto) [place] % (Auto) Lymph # [place] # Seg Neutrophils % Seg Neuts % (Manual) Lymphocytes % (Manual) Monocytes % (Manual) Nucleated RBC % Seg Neutrophils # Seg Neutrophils # Man Lymphocytes # (Manual) Monocytes # (Manual) PT INR D-Dimer Heparin Anti-Xa Level 0.23 L POC ABG pH ABG pH POC ABG pCO2 POC ABG pO2 ABG pO2 ABG HCO3 ABG O2 Saturation ABG Base Excess ABG Hemoglobin Oxyhemoglobin Sodium 135 L Potassium 5.5 H D Chloride 95.1 L Carbon Dioxide 16 L D BUN 129 H Creatinine 9.3 H Glucose 158 H POC Glucose 202 H Lactic Acid Calcium 4.0 L* D Ionized Calcium Phosphorus 12.40 H Magnesium Iron TIBC Ferritin Total Bilirubin Direct Bilirubin AST ALT Alkaline Phosphatase Total Creatine Kinase 4266 H CK-MB (CK-2) Troponin T C-Reactive Protein Total Protein Albumin Triglycerides LDL Cholesterol Direct HDL Cholesterol Free T4 PTH Intact Urine WBC (Auto) Urine Creatinine Salicylates Acetaminophen Crossmatch 03/28/19 03/28/19 03/28/19 08:25 10:00 12:00 WBC RBC Hgb 4.9 L* D Hct 15.4 L* D MCV MCHC RDW Plt Count Lymph % (Auto) [place] % (Auto) Lymph # [place] # Seg Neutrophils % Seg Neuts % (Manual) Lymphocytes % (Manual) Monocytes % (Manual) Nucleated RBC % Seg Neutrophils # Seg Neutrophils # Man Lymphocytes # (Manual) Monocytes # (Manual) PT 17.9 H INR 1.52 H D-Dimer 4845.98 H Heparin Anti-Xa Level POC ABG pH ABG pH POC ABG pCO2 POC ABG pO2 ABG pO2 ABG HCO3 ABG O2 Saturation ABG Base Excess ABG Hemoglobin Oxyhemoglobin Sodium Potassium Chloride Carbon Dioxide BUN Creatinine Glucose POC Glucose Lactic Acid Calcium Ionized Calcium Phosphorus Magnesium Iron TIBC Ferritin Total Bilirubin Direct Bilirubin AST ALT Alkaline Phosphatase Total Creatine Kinase CK-MB (CK-2) Troponin T C-Reactive Protein Total Protein Albumin Triglycerides LDL Cholesterol Direct HDL Cholesterol Free T4 PTH Intact Urine WBC (Auto) Urine Creatinine Salicylates Acetaminophen Crossmatch See Detail 03/28/19 03/28/19 03/28/19 12:28 14:10 17:43 WBC RBC Hgb 5.9 L* Hct 18.3 L* MCV MCHC RDW Plt Count Lymph % (Auto) [place] % (Auto) Lymph # [place] # Seg Neutrophils % Seg Neuts % (Manual) Lymphocytes % (Manual) Monocytes % (Manual) Nucleated RBC % Seg Neutrophils # Seg Neutrophils # Man Lymphocytes # (Manual) Monocytes # (Manual) PT INR D-Dimer Heparin Anti-Xa Level POC ABG pH ABG pH POC ABG pCO2 POC ABG pO2 ABG pO2 ABG HCO3 ABG O2 Saturation ABG Base Excess ABG Hemoglobin Oxyhemoglobin Sodium Potassium Chloride Carbon Dioxide BUN Creatinine Glucose POC Glucose 153 H 159 H Lactic Acid Calcium Ionized Calcium Phosphorus Magnesium Iron TIBC Ferritin Total Bilirubin Direct Bilirubin AST ALT Alkaline Phosphatase Total Creatine Kinase CK-MB (CK-2) Troponin T C-Reactive Protein Total Protein Albumin Triglycerides LDL Cholesterol Direct HDL Cholesterol Free T4 PTH Intact Urine WBC (Auto) Urine Creatinine Salicylates Acetaminophen Crossmatch 03/28/19 03/28/19 03/28/19 18:10 Unknown 23:59 WBC 24.8 H RBC 3.42 L Hgb 10.2 L D Hct 31.1 L D MCV MCHC RDW 15.4 H Plt Count 54 L Lymph % (Auto) [place] % (Auto) Lymph # [place] # Seg Neutrophils % Seg Neuts % (Manual) 91.0 H Lymphocytes % (Manual) 8.0 L Monocytes % (Manual) Nucleated RBC % Seg Neutrophils # Seg Neutrophils # Man 22.6 H Lymphocytes # (Manual) Monocytes # (Manual) PT INR D-Dimer Heparin Anti-Xa Level POC ABG pH ABG pH POC ABG pCO2 POC ABG pO2 ABG pO2 ABG HCO3 ABG O2 Saturation ABG Base Excess ABG Hemoglobin Oxyhemoglobin Sodium Potassium 5.7 H Chloride Carbon Dioxide BUN Creatinine Glucose POC Glucose 107 H Lactic Acid Calcium Ionized Calcium Phosphorus Magnesium Iron TIBC Ferritin Total Bilirubin Direct Bilirubin AST ALT Alkaline Phosphatase Total Creatine Kinase CK-MB (CK-2) Troponin T C-Reactive Protein Total Protein Albumin Triglycerides LDL Cholesterol Direct HDL Cholesterol Free T4 PTH Intact Urine WBC (Auto) Urine Creatinine Salicylates Acetaminophen Crossmatch 03/29/19 03/29/19 03/29/19 04:29 05:46 06:22 WBC RBC Hgb 8.6 L Hct 25.7 L MCV MCHC RDW Plt Count 93 L Lymph % (Auto) [place] % (Auto) Lymph # [place] # Seg Neutrophils % Seg Neuts % (Manual) Lymphocytes % (Manual) Monocytes % (Manual) Nucleated RBC % Seg Neutrophils # Seg Neutrophils # Man Lymphocytes # (Manual) Monocytes # (Manual) PT INR D-Dimer Heparin Anti-Xa Level POC ABG pH ABG pH POC ABG pCO2 32.2 L POC ABG pO2 ABG pO2 ABG HCO3 ABG O2 Saturation ABG Base Excess ABG Hemoglobin Oxyhemoglobin Sodium Potassium Chloride Carbon Dioxide BUN Creatinine Glucose POC Glucose 113 H Lactic Acid Calcium Ionized Calcium Phosphorus Magnesium Iron TIBC Ferritin Total Bilirubin Direct Bilirubin AST ALT Alkaline Phosphatase Total Creatine Kinase CK-MB (CK-2) Troponin T C-Reactive Protein Total Protein Albumin Triglycerides LDL Cholesterol Direct HDL Cholesterol Free T4 PTH Intact Urine WBC (Auto) Urine Creatinine Salicylates Acetaminophen Crossmatch 03/29/19 03/29/19 03/29/19 06:22 06:22 06:22 WBC 23.2 H RBC 2.91 L Hgb 8.6 L Hct 25.8 L MCV MCHC RDW Plt Count 91 L Lymph % (Auto) [place] % (Auto) Lymph # [place] # Seg Neutrophils % Seg Neuts % (Manual) Lymphocytes % (Manual) Monocytes % (Manual) Nucleated RBC % Seg Neutrophils # Seg Neutrophils # Man Lymphocytes # (Manual) Monocytes # (Manual) PT INR D-Dimer Heparin Anti-Xa Level POC ABG pH ABG pH POC ABG pCO2 POC ABG pO2 ABG pO2 ABG HCO3 ABG O2 Saturation ABG Base Excess ABG Hemoglobin Oxyhemoglobin Sodium 133 L Potassium Chloride 93.8 L Carbon Dioxide 18 L BUN 109 H Creatinine 7.4 H Glucose 124 H POC Glucose Lactic Acid Calcium 4.6 L* Ionized Calcium Phosphorus Magnesium Iron TIBC Ferritin Total Bilirubin Direct Bilirubin AST ALT Alkaline Phosphatase Total Creatine Kinase 3401 H CK-MB (CK-2) Troponin T C-Reactive Protein Total Protein Albumin Triglycerides 309 H LDL Cholesterol Direct HDL Cholesterol Free T4 PTH Intact Urine WBC (Auto) Urine Creatinine Salicylates Acetaminophen Crossmatch 03/29/19 03/29/19 03/29/19 11:48 11:48 18:24 WBC RBC Hgb 7.8 L Hct 23.2 L MCV MCHC RDW Plt Count Lymph % (Auto) [place] % (Auto) Lymph # [place] # Seg Neutrophils % Seg Neuts % (Manual) Lymphocytes % (Manual) Monocytes % (Manual) Nucleated RBC % Seg Neutrophils # Seg Neutrophils # Man Lymphocytes # (Manual) Monocytes # (Manual) PT 15.3 H INR 1.24 H D-Dimer Heparin Anti-Xa Level POC ABG pH ABG pH POC ABG pCO2 POC ABG pO2 ABG pO2 ABG HCO3 ABG O2 Saturation ABG Base Excess ABG Hemoglobin Oxyhemoglobin Sodium Potassium Chloride Carbon Dioxide BUN Creatinine Glucose POC Glucose 122 H Lactic Acid Calcium Ionized Calcium Phosphorus Magnesium Iron TIBC Ferritin Total Bilirubin Direct Bilirubin AST ALT Alkaline Phosphatase Total Creatine Kinase CK-MB (CK-2) Troponin T C-Reactive Protein Total Protein Albumin Triglycerides LDL Cholesterol Direct HDL Cholesterol Free T4 PTH Intact Urine WBC (Auto) Urine Creatinine Salicylates Acetaminophen Crossmatch 03/30/19 03/30/19 03/30/19 00:40 04:31 05:04 WBC RBC Hgb 7.6 L Hct 23.0 L MCV MCHC RDW Plt Count Lymph % (Auto) [place] % (Auto) Lymph # [place] # Seg Neutrophils % Seg Neuts % (Manual) Lymphocytes % (Manual) Monocytes % (Manual) Nucleated RBC % Seg Neutrophils # Seg Neutrophils # Man Lymphocytes # (Manual) Monocytes # (Manual) PT INR D-Dimer Heparin Anti-Xa Level POC ABG pH 7.346 L ABG pH POC ABG pCO2 POC ABG pO2 62 L ABG pO2 ABG HCO3 ABG O2 Saturation ABG Base Excess ABG Hemoglobin Oxyhemoglobin Sodium Potassium Chloride Carbon Dioxide BUN 79 H Creatinine 6.4 H Glucose POC Glucose Lactic Acid Calcium 6.1 L D Ionized Calcium Phosphorus Magnesium Iron TIBC Ferritin Total Bilirubin Direct Bilirubin AST ALT Alkaline Phosphatase Total Creatine Kinase CK-MB (CK-2) Troponin T C-Reactive Protein Total Protein Albumin Triglycerides LDL Cholesterol Direct HDL Cholesterol Free T4 PTH Intact Urine WBC (Auto) Urine Creatinine Salicylates Acetaminophen Crossmatch 03/30/19 03/30/19 03/30/19 08:45 12:09 22:43 WBC 14.3 H RBC 2.33 L Hgb 7.0 L 7.4 L Hct 21.0 L 22.3 L MCV MCHC RDW 15.6 H Plt Count 135 L Lymph % (Auto) [place] % (Auto) Lymph # [place] # Seg Neutrophils % Seg Neuts % (Manual) Lymphocytes % (Manual) Monocytes % (Manual) Nucleated RBC % Seg Neutrophils # Seg Neutrophils # Man Lymphocytes # (Manual) Monocytes # (Manual) PT INR D-Dimer Heparin Anti-Xa Level POC ABG pH ABG pH POC ABG pCO2 POC ABG pO2 ABG pO2 ABG HCO3 ABG O2 Saturation ABG Base Excess ABG Hemoglobin Oxyhemoglobin Sodium Potassium Chloride Carbon Dioxide BUN Creatinine Glucose POC Glucose Lactic Acid Calcium Ionized Calcium 3.7 L Phosphorus Magnesium Iron TIBC Ferritin Total Bilirubin Direct Bilirubin AST ALT Alkaline Phosphatase Total Creatine Kinase CK-MB (CK-2) Troponin T C-Reactive Protein Total Protein Albumin Triglycerides LDL Cholesterol Direct HDL Cholesterol Free T4 PTH Intact Urine WBC (Auto) Urine Creatinine Salicylates Acetaminophen Crossmatch 03/30/19 03/30/19 03/31/19 23:38 Unknown 04:44 WBC 11.5 H RBC 2.40 L Hgb 7.3 L Hct 21.9 L MCV MCHC RDW 15.4 H Plt Count Lymph % (Auto) 10.6 L [place] % (Auto) Lymph # [place] # Seg Neutrophils % 81.7 H Seg Neuts % (Manual) Lymphocytes % (Manual) Monocytes % (Manual) Nucleated RBC % Seg Neutrophils # 9.4 H Seg Neutrophils # Man Lymphocytes # (Manual) Monocytes # (Manual) PT INR D-Dimer Heparin Anti-Xa Level POC ABG pH ABG pH POC ABG pCO2 POC ABG pO2 ABG pO2 ABG HCO3 ABG O2 Saturation ABG Base Excess ABG Hemoglobin Oxyhemoglobin Sodium Potassium Chloride Carbon Dioxide BUN Creatinine Glucose POC Glucose 155 H Lactic Acid Calcium Ionized Calcium Phosphorus Magnesium Iron TIBC Ferritin Total Bilirubin Direct Bilirubin 0.4 H AST 63 H ALT Alkaline Phosphatase Total Creatine Kinase CK-MB (CK-2) Troponin T C-Reactive Protein Total Protein 4.9 L Albumin 2.2 L Triglycerides LDL Cholesterol Direct HDL Cholesterol Free T4 PTH Intact Urine WBC (Auto) Urine Creatinine Salicylates Acetaminophen Crossmatch 03/31/19 03/31/19 03/31/19 04:44 05:44 08:20 WBC RBC Hgb Hct MCV MCHC RDW Plt Count Lymph % (Auto) [place] % (Auto) Lymph # [place] # Seg Neutrophils % Seg Neuts % (Manual) Lymphocytes % (Manual) Monocytes % (Manual) Nucleated RBC % Seg Neutrophils # Seg Neutrophils # Man Lymphocytes # (Manual) Monocytes # (Manual) PT INR D-Dimer Heparin Anti-Xa Level POC ABG pH ABG pH POC ABG pCO2 53.5 H POC ABG pO2 62 L ABG pO2 ABG HCO3 ABG O2 Saturation ABG Base Excess ABG Hemoglobin Oxyhemoglobin Sodium 135 L Potassium Chloride 96.7 L Carbon Dioxide 19 L BUN 94 H Creatinine 7.8 H Glucose POC Glucose Lactic Acid Calcium 5.3 L* Ionized Calcium Phosphorus 8.20 H Magnesium Iron TIBC Ferritin Total Bilirubin Direct Bilirubin 0.4 H AST 60 H ALT Alkaline Phosphatase Total Creatine Kinase CK-MB (CK-2) Troponin T C-Reactive Protein Total Protein 4.8 L Albumin 2.1 L Triglycerides LDL Cholesterol Direct HDL Cholesterol Free T4 PTH Intact Urine WBC (Auto) Urine Creatinine Salicylates Acetaminophen Crossmatch 03/31/19 04/01/19 04/01/19 22:14 04:27 04:27 WBC RBC 2.60 L Hgb 8.0 L Hct 24.1 L MCV MCHC RDW 15.7 H Plt Count Lymph % (Auto) 7.9 L [place] % (Auto) Lymph # 0.7 L [place] # Seg Neutrophils % 83.6 H Seg Neuts % (Manual) Lymphocytes % (Manual) Monocytes % (Manual) Nucleated RBC % Seg Neutrophils # Seg Neutrophils # Man Lymphocytes # (Manual) Monocytes # (Manual) PT INR D-Dimer Heparin Anti-Xa Level POC ABG pH 7.286 L ABG pH POC ABG pCO2 54.7 H POC ABG pO2 179 H ABG pO2 ABG HCO3 ABG O2 Saturation ABG Base Excess ABG Hemoglobin Oxyhemoglobin Sodium Potassium Chloride Carbon Dioxide BUN 68 H Creatinine 6.6 H Glucose POC Glucose Lactic Acid Calcium 6.5 L D Ionized Calcium Phosphorus 7.30 H Magnesium Iron TIBC Ferritin Total Bilirubin Direct Bilirubin AST ALT Alkaline Phosphatase Total Creatine Kinase 1652 H CK-MB (CK-2) Troponin T C-Reactive Protein Total Protein Albumin Triglycerides LDL Cholesterol Direct HDL Cholesterol Free T4 PTH Intact Urine WBC (Auto) Urine Creatinine Salicylates Acetaminophen Crossmatch 04/01/19 04/01/19 04/01/19 05:14 05:37 18:37 WBC RBC Hgb Hct MCV MCHC RDW Plt Count Lymph % (Auto) [place] % (Auto) Lymph # [place] # Seg Neutrophils % Seg Neuts % (Manual) Lymphocytes % (Manual) Monocytes % (Manual) Nucleated RBC % Seg Neutrophils # Seg Neutrophils # Man Lymphocytes # (Manual) Monocytes # (Manual) PT INR D-Dimer Heparin Anti-Xa Level POC ABG pH 7.283 L ABG pH POC ABG pCO2 53.4 H POC ABG pO2 241 H ABG pO2 ABG HCO3 ABG O2 Saturation ABG Base Excess ABG Hemoglobin Oxyhemoglobin Sodium Potassium Chloride Carbon Dioxide BUN Creatinine Glucose POC Glucose 111 H 119 H Lactic Acid Calcium Ionized Calcium Phosphorus Magnesium Iron TIBC Ferritin Total Bilirubin Direct Bilirubin AST ALT Alkaline Phosphatase Total Creatine Kinase CK-MB (CK-2) Troponin T C-Reactive Protein Total Protein Albumin Triglycerides LDL Cholesterol Direct HDL Cholesterol Free T4 PTH Intact Urine WBC (Auto) Urine Creatinine Salicylates Acetaminophen Crossmatch 04/01/19 04/02/19 04/02/19 21:28 04:40 05:03 WBC RBC 2.36 L Hgb 7.2 L Hct 21.9 L MCV MCHC RDW 16.0 H Plt Count Lymph % (Auto) 10.8 L [place] % (Auto) Lymph # 0.8 L [place] # Seg Neutrophils % 80.3 H Seg Neuts % (Manual) Lymphocytes % (Manual) Monocytes % (Manual) Nucleated RBC % Seg Neutrophils # Seg Neutrophils # Man Lymphocytes # (Manual) Monocytes # (Manual) PT INR D-Dimer Heparin Anti-Xa Level POC ABG pH 7.299 L 7.300 L ABG pH POC ABG pCO2 48.2 H 45.2 H POC ABG pO2 133 H 107 H ABG pO2 ABG HCO3 ABG O2 Saturation ABG Base Excess ABG Hemoglobin Oxyhemoglobin Sodium Potassium Chloride Carbon Dioxide BUN Creatinine Glucose POC Glucose Lactic Acid Calcium Ionized Calcium Phosphorus Magnesium Iron TIBC Ferritin Total Bilirubin Direct Bilirubin AST ALT Alkaline Phosphatase Total Creatine Kinase CK-MB (CK-2) Troponin T C-Reactive Protein Total Protein Albumin Triglycerides LDL Cholesterol Direct HDL Cholesterol Free T4 PTH Intact Urine WBC (Auto) Urine Creatinine Salicylates Acetaminophen Crossmatch 04/02/19 04/02/19 04/02/19 05:03 05:03 12:15 WBC RBC Hgb 7.4 L Hct 22.6 L MCV MCHC RDW Plt Count Lymph % (Auto) [place] % (Auto) Lymph # [place] # Seg Neutrophils % Seg Neuts % (Manual) Lymphocytes % (Manual) Monocytes % (Manual) Nucleated RBC % Seg Neutrophils # Seg Neutrophils # Man Lymphocytes # (Manual) Monocytes # (Manual) PT INR D-Dimer Heparin Anti-Xa Level POC ABG pH ABG pH POC ABG pCO2 POC ABG pO2 ABG pO2 ABG HCO3 ABG O2 Saturation ABG Base Excess ABG Hemoglobin Oxyhemoglobin Sodium 136 L Potassium Chloride 97.8 L Carbon Dioxide 18 L BUN 82 H Creatinine 8.2 H Glucose POC Glucose Lactic Acid Calcium 6.7 L Ionized Calcium Phosphorus 7.50 H Magnesium Iron 26 L TIBC 138 L Ferritin 607.0 H Total Bilirubin Direct Bilirubin AST ALT Alkaline Phosphatase Total Creatine Kinase CK-MB (CK-2) Troponin T C-Reactive Protein Total Protein Albumin Triglycerides LDL Cholesterol Direct HDL Cholesterol Free T4 PTH Intact Urine WBC (Auto) Urine Creatinine Salicylates Acetaminophen Crossmatch 04/02/19 04/02/19 04/03/19 16:34 17:14 04:18 WBC RBC Hgb Hct MCV MCHC RDW Plt Count Lymph % (Auto) [place] % (Auto) Lymph # [place] # Seg Neutrophils % Seg Neuts % (Manual) Lymphocytes % (Manual) Monocytes % (Manual) Nucleated RBC % Seg Neutrophils # Seg Neutrophils # Man Lymphocytes # (Manual) Monocytes # (Manual) PT INR D-Dimer Heparin Anti-Xa Level POC ABG pH ABG pH POC ABG pCO2 POC ABG pO2 146 H ABG pO2 ABG HCO3 ABG O2 Saturation ABG Base Excess ABG Hemoglobin Oxyhemoglobin Sodium Potassium Chloride Carbon Dioxide BUN Creatinine Glucose POC Glucose 108 H Lactic Acid Calcium Ionized Calcium Phosphorus Magnesium Iron TIBC Ferritin Total Bilirubin Direct Bilirubin AST ALT Alkaline Phosphatase Total Creatine Kinase CK-MB (CK-2) Troponin T C-Reactive Protein Total Protein Albumin Triglycerides LDL Cholesterol Direct HDL Cholesterol Free T4 PTH Intact Urine WBC (Auto) Urine Creatinine Salicylates Acetaminophen Crossmatch See Detail 04/03/19 04/03/19 04/03/19 04:25 08:30 18:24 WBC RBC 2.40 L Hgb 7.3 L Hct 21.9 L MCV MCHC RDW Plt Count Lymph % (Auto) [place] % (Auto) 7.7 H Lymph # 0.9 L [place] # Seg Neutrophils % 74.6 H Seg Neuts % (Manual) Lymphocytes % (Manual) Monocytes % (Manual) Nucleated RBC % Seg Neutrophils # Seg Neutrophils # Man Lymphocytes # (Manual) Monocytes # (Manual) PT INR D-Dimer Heparin Anti-Xa Level POC ABG pH ABG pH POC ABG pCO2 POC ABG pO2 ABG pO2 ABG HCO3 ABG O2 Saturation ABG Base Excess ABG Hemoglobin Oxyhemoglobin Sodium 136 L Potassium Chloride 97.0 L Carbon Dioxide BUN 58 H Creatinine 7.3 H Glucose POC Glucose 106 H Lactic Acid Calcium 7.5 L Ionized Calcium Phosphorus 5.80 H D Magnesium Iron TIBC Ferritin Total Bilirubin Direct Bilirubin AST ALT Alkaline Phosphatase Total Creatine Kinase CK-MB (CK-2) Troponin T C-Reactive Protein Total Protein Albumin Triglycerides LDL Cholesterol Direct HDL Cholesterol Free T4 PTH Intact Urine WBC (Auto) Urine Creatinine Salicylates Acetaminophen Crossmatch 04/03/19 04/04/19 04/04/19 23:43 04:47 04:47 WBC RBC 2.72 L Hgb 8.3 L Hct 24.7 L MCV MCHC RDW 15.6 H Plt Count Lymph % (Auto) [place] % (Auto) 10.1 H Lymph # 0.8 L [place] # Seg Neutrophils % 71.4 H Seg Neuts % (Manual) Lymphocytes % (Manual) Monocytes % (Manual) Nucleated RBC % Seg Neutrophils # Seg Neutrophils # Man Lymphocytes # (Manual) Monocytes # (Manual) PT INR D-Dimer Heparin Anti-Xa Level POC ABG pH ABG pH POC ABG pCO2 POC ABG pO2 ABG pO2 123.8 H ABG HCO3 ABG O2 Saturation ABG Base Excess -3.0 L ABG Hemoglobin 7.9 L Oxyhemoglobin Sodium 134 L Potassium Chloride 97.9 L Carbon Dioxide BUN 64 H Creatinine 8.1 H Glucose POC Glucose Lactic Acid Calcium 7.2 L Ionized Calcium Phosphorus Magnesium Iron TIBC Ferritin Total Bilirubin Direct Bilirubin AST ALT Alkaline Phosphatase Total Creatine Kinase CK-MB (CK-2) Troponin T C-Reactive Protein Total Protein Albumin Triglycerides LDL Cholesterol Direct HDL Cholesterol Free T4 PTH Intact Urine WBC (Auto) Urine Creatinine Salicylates Acetaminophen Crossmatch 04/04/19 04/04/19 04/04/19 06:07 13:40 18:18 WBC RBC Hgb Hct MCV MCHC RDW Plt Count Lymph % (Auto) [place] % (Auto) Lymph # [place] # Seg Neutrophils % Seg Neuts % (Manual) Lymphocytes % (Manual) Monocytes % (Manual) Nucleated RBC % Seg Neutrophils # Seg Neutrophils # Man Lymphocytes # (Manual) Monocytes # (Manual) PT INR D-Dimer Heparin Anti-Xa Level POC ABG pH ABG pH POC ABG pCO2 POC ABG pO2 ABG pO2 95.9 H ABG HCO3 ABG O2 Saturation ABG Base Excess -3.0 L ABG Hemoglobin 8.5 L Oxyhemoglobin Sodium Potassium Chloride Carbon Dioxide BUN Creatinine Glucose POC Glucose 107 H 107 H Lactic Acid Calcium Ionized Calcium Phosphorus Magnesium Iron TIBC Ferritin Total Bilirubin Direct Bilirubin AST ALT Alkaline Phosphatase Total Creatine Kinase CK-MB (CK-2) Troponin T C-Reactive Protein Total Protein Albumin Triglycerides LDL Cholesterol Direct HDL Cholesterol Free T4 PTH Intact Urine WBC (Auto) Urine Creatinine Salicylates Acetaminophen Crossmatch 04/04/19 04/05/19 04/05/19 21:22 04:09 04:09 WBC RBC 2.76 L Hgb 8.4 L Hct 25.4 L MCV MCHC RDW 15.8 H Plt Count 133 L Lymph % (Auto) [place] % (Auto) 9.6 H Lymph # 0.7 L [place] # Seg Neutrophils % 72.6 H Seg Neuts % (Manual) Lymphocytes % (Manual) Monocytes % (Manual) Nucleated RBC % Seg Neutrophils # Seg Neutrophils # Man Lymphocytes # (Manual) Monocytes # (Manual) PT INR D-Dimer Heparin Anti-Xa Level POC ABG pH ABG pH POC ABG pCO2 47.2 H POC ABG pO2 137 H ABG pO2 ABG HCO3 ABG O2 Saturation ABG Base Excess ABG Hemoglobin Oxyhemoglobin Sodium 136 L Potassium Chloride Carbon Dioxide BUN 46 H Creatinine 6.7 H Glucose POC Glucose Lactic Acid Calcium 7.7 L Ionized Calcium Phosphorus Magnesium Iron TIBC Ferritin Total Bilirubin Direct Bilirubin AST ALT Alkaline Phosphatase Total Creatine Kinase CK-MB (CK-2) Troponin T C-Reactive Protein Total Protein Albumin Triglycerides LDL Cholesterol Direct HDL Cholesterol Free T4 PTH Intact Urine WBC (Auto) Urine Creatinine Salicylates Acetaminophen Crossmatch 04/05/19 04/05/19 04/05/19 05:28 06:14 16:50 WBC RBC Hgb Hct MCV MCHC RDW Plt Count Lymph % (Auto) [place] % (Auto) Lymph # [place] # Seg Neutrophils % Seg Neuts % (Manual) Lymphocytes % (Manual) Monocytes % (Manual) Nucleated RBC % Seg Neutrophils # Seg Neutrophils # Man Lymphocytes # (Manual) Monocytes # (Manual) PT INR D-Dimer Heparin Anti-Xa Level POC ABG pH ABG pH POC ABG pCO2 POC ABG pO2 67 L ABG pO2 ABG HCO3 ABG O2 Saturation ABG Base Excess ABG Hemoglobin Oxyhemoglobin Sodium Potassium Chloride Carbon Dioxide BUN Creatinine Glucose POC Glucose 108 H Lactic Acid Calcium Ionized Calcium Phosphorus Magnesium Iron TIBC Ferritin Total Bilirubin Direct Bilirubin AST ALT Alkaline Phosphatase Total Creatine Kinase CK-MB (CK-2) Troponin T C-Reactive Protein Total Protein Albumin Triglycerides LDL Cholesterol Direct HDL Cholesterol Free T4 PTH Intact Urine WBC (Auto) 40.0 H Urine Creatinine Salicylates Acetaminophen Crossmatch 04/05/19 04/06/19 04/06/19 17:22 00:13 04:44 WBC RBC 2.48 L Hgb 7.5 L Hct 22.9 L MCV MCHC RDW 16.0 H Plt Count 107 L Lymph % (Auto) [place] % (Auto) 10.7 H Lymph # 1.0 L [place] # Seg Neutrophils % Seg Neuts % (Manual) Lymphocytes % (Manual) Monocytes % (Manual) Nucleated RBC % Seg Neutrophils # Seg Neutrophils # Man Lymphocytes # (Manual) Monocytes # (Manual) PT INR D-Dimer Heparin Anti-Xa Level POC ABG pH ABG pH POC ABG pCO2 POC ABG pO2 ABG pO2 ABG HCO3 ABG O2 Saturation ABG Base Excess ABG Hemoglobin Oxyhemoglobin Sodium Potassium Chloride Carbon Dioxide BUN Creatinine Glucose POC Glucose 118 H 138 H Lactic Acid Calcium Ionized Calcium Phosphorus Magnesium Iron TIBC Ferritin Total Bilirubin Direct Bilirubin AST ALT Alkaline Phosphatase Total Creatine Kinase CK-MB (CK-2) Troponin T C-Reactive Protein Total Protein Albumin Triglycerides LDL Cholesterol Direct HDL Cholesterol Free T4 PTH Intact Urine WBC (Auto) Urine Creatinine Salicylates Acetaminophen Crossmatch 04/06/19 04/06/19 04/06/19 04:44 05:20 05:23 WBC RBC Hgb Hct MCV MCHC RDW Plt Count Lymph % (Auto) [place] % (Auto) Lymph # [place] # Seg Neutrophils % Seg Neuts % (Manual) Lymphocytes % (Manual) Monocytes % (Manual) Nucleated RBC % Seg Neutrophils # Seg Neutrophils # Man Lymphocytes # (Manual) Monocytes # (Manual) PT INR D-Dimer Heparin Anti-Xa Level POC ABG pH ABG pH POC ABG pCO2 POC ABG pO2 ABG pO2 104.0 H ABG HCO3 ABG O2 Saturation ABG Base Excess -2.1 L ABG Hemoglobin 7.3 L Oxyhemoglobin Sodium Potassium Chloride Carbon Dioxide BUN 64 H Creatinine 8.2 H Glucose 103 H POC Glucose 118 H Lactic Acid Calcium 7.3 L Ionized Calcium Phosphorus Magnesium Iron TIBC Ferritin Total Bilirubin Direct Bilirubin AST ALT Alkaline Phosphatase Total Creatine Kinase CK-MB (CK-2) Troponin T C-Reactive Protein Total Protein Albumin Triglycerides LDL Cholesterol Direct HDL Cholesterol Free T4 PTH Intact Urine WBC (Auto) Urine Creatinine Salicylates Acetaminophen Crossmatch 04/06/19 04/07/19 04/07/19 12:02 05:40 05:40 WBC RBC 2.59 L Hgb 7.9 L Hct 23.8 L MCV MCHC RDW 15.8 H Plt Count 89 L Lymph % (Auto) [place] % (Auto) 10.3 H Lymph # 1.1 L [place] # Seg Neutrophils % Seg Neuts % (Manual) Lymphocytes % (Manual) Monocytes % (Manual) Nucleated RBC % Seg Neutrophils # Seg Neutrophils # Man Lymphocytes # (Manual) Monocytes # (Manual) PT INR D-Dimer Heparin Anti-Xa Level POC ABG pH ABG pH POC ABG pCO2 POC ABG pO2 ABG pO2 ABG HCO3 ABG O2 Saturation ABG Base Excess ABG Hemoglobin Oxyhemoglobin Sodium 136 L Potassium 3.5 L Chloride Carbon Dioxide BUN 46 H Creatinine 6.2 H Glucose POC Glucose 108 H Lactic Acid Calcium 7.9 L Ionized Calcium Phosphorus Magnesium Iron TIBC Ferritin Total Bilirubin Direct Bilirubin AST ALT Alkaline Phosphatase Total Creatine Kinase CK-MB (CK-2) Troponin T C-Reactive Protein Total Protein Albumin Triglycerides LDL Cholesterol Direct HDL Cholesterol Free T4 PTH Intact Urine WBC (Auto) Urine Creatinine Salicylates Acetaminophen Crossmatch 04/07/19 04/09/19 04/09/19 12:57 04:28 04:28 WBC RBC 2.85 L Hgb 8.7 L Hct 26.2 L MCV MCHC RDW 15.6 H Plt Count Lymph % (Auto) [place] % (Auto) 10.4 H Lymph # 1.0 L [place] # Seg Neutrophils % 73.3 H Seg Neuts % (Manual) Lymphocytes % (Manual) Monocytes % (Manual) Nucleated RBC % Seg Neutrophils # Seg Neutrophils # Man Lymphocytes # (Manual) Monocytes # (Manual) PT INR D-Dimer Heparin Anti-Xa Level POC ABG pH ABG pH POC ABG pCO2 POC ABG pO2 107 H ABG pO2 ABG HCO3 ABG O2 Saturation ABG Base Excess ABG Hemoglobin Oxyhemoglobin Sodium Potassium 3.5 L Chloride 97.8 L Carbon Dioxide BUN 62 H Creatinine 8.1 H Glucose POC Glucose Lactic Acid Calcium 8.2 L Ionized Calcium Phosphorus 5.10 H Magnesium Iron TIBC Ferritin Total Bilirubin Direct Bilirubin AST ALT Alkaline Phosphatase Total Creatine Kinase CK-MB (CK-2) Troponin T C-Reactive Protein Total Protein Albumin Triglycerides LDL Cholesterol Direct HDL Cholesterol Free T4 PTH Intact Urine WBC (Auto) Urine Creatinine Salicylates Acetaminophen Crossmatch 04/10/19 04/11/19 04/11/19 18:15 00:25 04:16 WBC 11.5 H RBC 2.91 L Hgb 8.9 L Hct 27.6 L MCV 95 H MCHC RDW 17.5 H Plt Count Lymph % (Auto) [place] % (Auto) Lymph # [place] # Seg Neutrophils % Seg Neuts % (Manual) 71.0 H Lymphocytes % (Manual) Monocytes % (Manual) 8.0 H Nucleated RBC % Seg Neutrophils # Seg Neutrophils # Man 8.2 H Lymphocytes # (Manual) Monocytes # (Manual) 0.9 H PT INR D-Dimer Heparin Anti-Xa Level POC ABG pH ABG pH POC ABG pCO2 POC ABG pO2 ABG pO2 ABG HCO3 ABG O2 Saturation ABG Base Excess ABG Hemoglobin Oxyhemoglobin Sodium Potassium Chloride Carbon Dioxide BUN Creatinine Glucose POC Glucose 109 H 114 H Lactic Acid Calcium Ionized Calcium Phosphorus Magnesium Iron TIBC Ferritin Total Bilirubin Direct Bilirubin AST ALT Alkaline Phosphatase Total Creatine Kinase CK-MB (CK-2) Troponin T C-Reactive Protein Total Protein Albumin Triglycerides LDL Cholesterol Direct HDL Cholesterol Free T4 PTH Intact Urine WBC (Auto) Urine Creatinine Salicylates Acetaminophen Crossmatch 04/11/19 04/11/19 04/11/19 06:47 09:21 12:15 WBC RBC Hgb Hct MCV MCHC RDW Plt Count Lymph % (Auto) [place] % (Auto) Lymph # [place] # Seg Neutrophils % Seg Neuts % (Manual) Lymphocytes % (Manual) Monocytes % (Manual) Nucleated RBC % Seg Neutrophils # Seg Neutrophils # Man Lymphocytes # (Manual) Monocytes # (Manual) PT INR D-Dimer Heparin Anti-Xa Level POC ABG pH ABG pH POC ABG pCO2 POC ABG pO2 ABG pO2 ABG HCO3 ABG O2 Saturation ABG Base Excess ABG Hemoglobin Oxyhemoglobin Sodium Potassium 3.5 L Chloride Carbon Dioxide BUN 45 H Creatinine 6.0 H Glucose 113 H POC Glucose 106 H 109 H Lactic Acid Calcium Ionized Calcium Phosphorus Magnesium Iron TIBC Ferritin Total Bilirubin Direct Bilirubin AST ALT Alkaline Phosphatase Total Creatine Kinase CK-MB (CK-2) Troponin T C-Reactive Protein Total Protein Albumin Triglycerides LDL Cholesterol Direct HDL Cholesterol Free T4 PTH Intact Urine WBC (Auto) Urine Creatinine Salicylates Acetaminophen Crossmatch 04/11/19 04/12/19 04/12/19 18:42 12:13 23:52 WBC RBC Hgb Hct MCV MCHC RDW Plt Count Lymph % (Auto) [place] % (Auto) Lymph # [place] # Seg Neutrophils % Seg Neuts % (Manual) Lymphocytes % (Manual) Monocytes % (Manual) Nucleated RBC % Seg Neutrophils # Seg Neutrophils # Man Lymphocytes # (Manual) Monocytes # (Manual) PT INR D-Dimer Heparin Anti-Xa Level POC ABG pH ABG pH POC ABG pCO2 POC ABG pO2 ABG pO2 ABG HCO3 ABG O2 Saturation ABG Base Excess ABG Hemoglobin Oxyhemoglobin Sodium Potassium Chloride Carbon Dioxide BUN Creatinine Glucose POC Glucose 107 H 115 H 124 H Lactic Acid Calcium Ionized Calcium Phosphorus Magnesium Iron TIBC Ferritin Total Bilirubin Direct Bilirubin AST ALT Alkaline Phosphatase Total Creatine Kinase CK-MB (CK-2) Troponin T C-Reactive Protein Total Protein Albumin Triglycerides LDL Cholesterol Direct HDL Cholesterol Free T4 PTH Intact Urine WBC (Auto) Urine Creatinine Salicylates Acetaminophen Crossmatch 04/13/19 04/13/19 04/13/19 05:00 05:00 05:47 WBC 11.7 H RBC 2.97 L Hgb 8.8 L Hct 27.3 L MCV MCHC RDW 16.1 H Plt Count Lymph % (Auto) 9.5 L [place] % (Auto) 9.9 H Lymph # 1.1 L [place] # 1.2 H Seg Neutrophils % 78.6 H Seg Neuts % (Manual) Lymphocytes % (Manual) Monocytes % (Manual) Nucleated RBC % Seg Neutrophils # 9.2 H Seg Neutrophils # Man Lymphocytes # (Manual) Monocytes # (Manual) PT INR D-Dimer Heparin Anti-Xa Level POC ABG pH ABG pH POC ABG pCO2 POC ABG pO2 ABG pO2 ABG HCO3 ABG O2 Saturation ABG Base Excess ABG Hemoglobin Oxyhemoglobin Sodium Potassium 3.5 L Chloride Carbon Dioxide BUN 42 H Creatinine 4.6 H Glucose 106 H POC Glucose 107 H Lactic Acid Calcium 10.6 H D Ionized Calcium Phosphorus 5.90 H Magnesium Iron TIBC Ferritin Total Bilirubin Direct Bilirubin AST ALT Alkaline Phosphatase Total Creatine Kinase CK-MB (CK-2) Troponin T C-Reactive Protein Total Protein 5.8 L Albumin 2.5 L Triglycerides LDL Cholesterol Direct HDL Cholesterol Free T4 PTH Intact Urine WBC (Auto) Urine Creatinine Salicylates Acetaminophen Crossmatch 04/13/19 04/14/19 04/14/19 17:32 00:00 03:55 WBC RBC Hgb Hct MCV MCHC RDW Plt Count Lymph % (Auto) [place] % (Auto) Lymph # [place] # Seg Neutrophils % Seg Neuts % (Manual) Lymphocytes % (Manual) Monocytes % (Manual) Nucleated RBC % Seg Neutrophils # Seg Neutrophils # Man Lymphocytes # (Manual) Monocytes # (Manual) PT INR D-Dimer Heparin Anti-Xa Level POC ABG pH ABG pH POC ABG pCO2 POC ABG pO2 ABG pO2 ABG HCO3 ABG O2 Saturation ABG Base Excess ABG Hemoglobin Oxyhemoglobin Sodium Potassium 3.0 L Chloride Carbon Dioxide BUN 30 H Creatinine 3.1 H Glucose POC Glucose 112 H 120 H Lactic Acid Calcium 10.8 H Ionized Calcium Phosphorus Magnesium Iron TIBC Ferritin Total Bilirubin Direct Bilirubin AST ALT Alkaline Phosphatase Total Creatine Kinase CK-MB (CK-2) Troponin T C-Reactive Protein Total Protein Albumin Triglycerides LDL Cholesterol Direct HDL Cholesterol Free T4 PTH Intact Urine WBC (Auto) Urine Creatinine Salicylates Acetaminophen Crossmatch 04/14/19 04/14/19 04/15/19 11:56 23:28 05:11 WBC 13.0 H RBC 2.93 L Hgb 8.6 L Hct 26.5 L MCV MCHC RDW 16.5 H Plt Count Lymph % (Auto) 12.2 L [place] % (Auto) 9.1 H Lymph # [place] # 1.2 H Seg Neutrophils % 77.6 H Seg Neuts % (Manual) Lymphocytes % (Manual) Monocytes % (Manual) Nucleated RBC % Seg Neutrophils # 10.1 H Seg Neutrophils # Man Lymphocytes # (Manual) Monocytes # (Manual) PT INR D-Dimer Heparin Anti-Xa Level POC ABG pH ABG pH POC ABG pCO2 POC ABG pO2 ABG pO2 ABG HCO3 ABG O2 Saturation ABG Base Excess ABG Hemoglobin Oxyhemoglobin Sodium Potassium Chloride Carbon Dioxide BUN Creatinine Glucose POC Glucose 109 H 112 H Lactic Acid Calcium Ionized Calcium Phosphorus Magnesium Iron TIBC Ferritin Total Bilirubin Direct Bilirubin AST ALT Alkaline Phosphatase Total Creatine Kinase CK-MB (CK-2) Troponin T C-Reactive Protein Total Protein Albumin Triglycerides LDL Cholesterol Direct HDL Cholesterol Free T4 PTH Intact Urine WBC (Auto) Urine Creatinine Salicylates Acetaminophen Crossmatch 04/15/19 04/15/19 04/15/19 05:11 05:31 18:03 WBC RBC Hgb Hct MCV MCHC RDW Plt Count Lymph % (Auto) [place] % (Auto) Lymph # [place] # Seg Neutrophils % Seg Neuts % (Manual) Lymphocytes % (Manual) Monocytes % (Manual) Nucleated RBC % Seg Neutrophils # Seg Neutrophils # Man Lymphocytes # (Manual) Monocytes # (Manual) PT INR D-Dimer Heparin Anti-Xa Level POC ABG pH ABG pH POC ABG pCO2 POC ABG pO2 ABG pO2 ABG HCO3 ABG O2 Saturation ABG Base Excess ABG Hemoglobin Oxyhemoglobin Sodium Potassium 3.2 L Chloride Carbon Dioxide BUN 44 H Creatinine 3.6 H Glucose 106 H POC Glucose 110 H 121 H Lactic Acid Calcium 12.0 H Ionized Calcium Phosphorus 5.00 H Magnesium Iron TIBC Ferritin Total Bilirubin Direct Bilirubin AST ALT Alkaline Phosphatase Total Creatine Kinase CK-MB (CK-2) Troponin T C-Reactive Protein Total Protein Albumin Triglycerides LDL Cholesterol Direct HDL Cholesterol Free T4 PTH Intact Urine WBC (Auto) Urine Creatinine Salicylates Acetaminophen Crossmatch 04/16/19 04/16/19 04/17/19 05:07 05:07 04:15 WBC 12.6 H RBC 3.12 L Hgb 9.0 L Hct 28.2 L MCV MCHC RDW 16.6 H Plt Count Lymph % (Auto) 10.3 L [place] % (Auto) 9.8 H Lymph # [place] # 1.2 H Seg Neutrophils % 78.2 H Seg Neuts % (Manual) Lymphocytes % (Manual) Monocytes % (Manual) Nucleated RBC % Seg Neutrophils # 9.9 H Seg Neutrophils # Man Lymphocytes # (Manual) Monocytes # (Manual) PT INR D-Dimer Heparin Anti-Xa Level POC ABG pH ABG pH POC ABG pCO2 POC ABG pO2 ABG pO2 ABG HCO3 ABG O2 Saturation ABG Base Excess ABG Hemoglobin Oxyhemoglobin Sodium 147 H 150 H Potassium 3.5 L 3.1 L Chloride Carbon Dioxide 32 H BUN 54 H 65 H Creatinine 3.8 H 4.0 H Glucose 102 H 107 H POC Glucose Lactic Acid Calcium 11.7 H 12.0 H Ionized Calcium Phosphorus 5.40 H Magnesium Iron TIBC Ferritin Total Bilirubin Direct Bilirubin AST ALT Alkaline Phosphatase Total Creatine Kinase CK-MB (CK-2) Troponin T C-Reactive Protein 7.10 H Total Protein Albumin Triglycerides LDL Cholesterol Direct HDL Cholesterol Free T4 PTH Intact Urine WBC (Auto) Urine Creatinine Salicylates Acetaminophen Crossmatch 04/17/19 04/17/19 04/17/19 04:15 06:05 12:49 WBC 15.8 H RBC 3.32 L Hgb 9.5 L Hct 29.9 L MCV MCHC RDW 16.9 H Plt Count Lymph % (Auto) 12.6 L [place] % (Auto) 11.1 H Lymph # [place] # 1.7 H Seg Neutrophils % 74.7 H Seg Neuts % (Manual) Lymphocytes % (Manual) Monocytes % (Manual) Nucleated RBC % Seg Neutrophils # 11.8 H Seg Neutrophils # Man Lymphocytes # (Manual) Monocytes # (Manual) PT INR D-Dimer Heparin Anti-Xa Level POC ABG pH ABG pH POC ABG pCO2 POC ABG pO2 ABG pO2 ABG HCO3 ABG O2 Saturation ABG Base Excess ABG Hemoglobin Oxyhemoglobin Sodium Potassium Chloride Carbon Dioxide BUN Creatinine Glucose POC Glucose 111 H 108 H Lactic Acid Calcium Ionized Calcium Phosphorus Magnesium Iron TIBC Ferritin Total Bilirubin Direct Bilirubin AST ALT Alkaline Phosphatase Total Creatine Kinase CK-MB (CK-2) Troponin T C-Reactive Protein Total Protein Albumin Triglycerides LDL Cholesterol Direct HDL Cholesterol Free T4 PTH Intact Urine WBC (Auto) Urine Creatinine Salicylates Acetaminophen Crossmatch 04/18/19 04/18/19 04/18/19 00:23 04:41 04:41 WBC 19.4 H RBC 3.03 L Hgb 8.6 L Hct 27.5 L MCV MCHC 31 L RDW 16.9 H Plt Count Lymph % (Auto) [place] % (Auto) Lymph # [place] # Seg Neutrophils % Seg Neuts % (Manual) Lymphocytes % (Manual) Monocytes % (Manual) Nucleated RBC % Seg Neutrophils # Seg Neutrophils # Man Lymphocytes # (Manual) Monocytes # (Manual) PT INR D-Dimer Heparin Anti-Xa Level POC ABG pH ABG pH POC ABG pCO2 POC ABG pO2 ABG pO2 ABG HCO3 ABG O2 Saturation ABG Base Excess ABG Hemoglobin Oxyhemoglobin Sodium 152 H Potassium 3.0 L Chloride Carbon Dioxide BUN 80 H Creatinine 4.3 H Glucose 103 H POC Glucose 115 H Lactic Acid Calcium 11.4 H Ionized Calcium Phosphorus Magnesium Iron TIBC Ferritin Total Bilirubin Direct Bilirubin AST ALT Alkaline Phosphatase Total Creatine Kinase CK-MB (CK-2) Troponin T C-Reactive Protein Total Protein Albumin Triglycerides LDL Cholesterol Direct HDL Cholesterol Free T4 PTH Intact Urine WBC (Auto) Urine Creatinine Salicylates Acetaminophen Crossmatch 04/18/19 04/18/19 04/18/19 06:17 12:16 18:10 WBC RBC Hgb Hct MCV MCHC RDW Plt Count Lymph % (Auto) [place] % (Auto) Lymph # [place] # Seg Neutrophils % Seg Neuts % (Manual) Lymphocytes % (Manual) Monocytes % (Manual) Nucleated RBC % Seg Neutrophils # Seg Neutrophils # Man Lymphocytes # (Manual) Monocytes # (Manual) PT INR D-Dimer Heparin Anti-Xa Level POC ABG pH ABG pH POC ABG pCO2 POC ABG pO2 ABG pO2 ABG HCO3 ABG O2 Saturation ABG Base Excess ABG Hemoglobin Oxyhemoglobin Sodium Potassium Chloride Carbon Dioxide BUN Creatinine Glucose POC Glucose 124 H 119 H 111 H Lactic Acid Calcium Ionized Calcium Phosphorus Magnesium Iron TIBC Ferritin Total Bilirubin Direct Bilirubin AST ALT Alkaline Phosphatase Total Creatine Kinase CK-MB (CK-2) Troponin T C-Reactive Protein Total Protein Albumin Triglycerides LDL Cholesterol Direct HDL Cholesterol Free T4 PTH Intact Urine WBC (Auto) Urine Creatinine Salicylates Acetaminophen Crossmatch 04/19/19 04/19/19 03:49 05:27 WBC RBC Hgb Hct MCV MCHC RDW Plt Count Lymph % (Auto) [place] % (Auto) Lymph # [place] # Seg Neutrophils % Seg Neuts % (Manual) Lymphocytes % (Manual) Monocytes % (Manual) Nucleated RBC % Seg Neutrophils # Seg Neutrophils # Man Lymphocytes # (Manual) Monocytes # (Manual) PT INR D-Dimer Heparin Anti-Xa Level POC ABG pH ABG pH POC ABG pCO2 POC ABG pO2 ABG pO2 ABG HCO3 ABG O2 Saturation ABG Base Excess ABG Hemoglobin Oxyhemoglobin Sodium 147 H Potassium 3.3 L Chloride Carbon Dioxide BUN 45 H Creatinine 2.9 H Glucose POC Glucose 124 H Lactic Acid Calcium 10.6 H Ionized Calcium Phosphorus Magnesium Iron TIBC Ferritin Total Bilirubin Direct Bilirubin AST ALT Alkaline Phosphatase Total Creatine Kinase CK-MB (CK-2) Troponin T C-Reactive Protein Total Protein Albumin Triglycerides LDL Cholesterol Direct HDL Cholesterol Free T4 PTH Intact Urine WBC (Auto) Urine Creatinine Salicylates Acetaminophen Crossmatch Allied health notes reviewed: nursing
--- NOTE | 2019-04-19 09:05 | Progress Note ---
Assessment and Plan Assessment and plan: Acute hypoxic respiratory failure. Continue BiPAP as clinically indicated. Atrial fibrillation. Continue Metoprolol. Cardiology following. No systemic AC regarding AFib in setting of anemia, thrombocytopenia, GI bleed. Acute blood loss anemia. Patient with GI bleed secondary to peptic ulcer diseas e. EGD completed per GI. Continue PRBCs as needed. I'll of H&H. GI bleed/peptic ulcer disease. Continue PPI. Transfuse PRBCs as needed. Sepsis/septic shock. Continue antibiotics per ID. Follow-up blood cultures. Levaquin added. ID following. Patient with recurrent fevers. Ischemic hepatitis/shock liver. Elevated LFTs improved. Viral hepatitis panel negative. Acute kidney injury. Patient now with hemodialysis. Patient was started on hemodialysis on 03/18/19 due to worsening metabolic acidosis and hyperkalemia. Baseline renal function is unknown. CT abdomen was negative for obstructive nephropathy. Avoid nephrotoxic agents. Continue hemodialysis per nephrology. Toxic metabolic encephalopathy. Brain MRI showed no acute intracranial abnormality, mild nonspecific chronic white matter changes, fluid throughout the sinuses and mastoid air cells. Swelling both upper ext L>R Doppler US : no DVT LUE Hypokalemia. Replete potassium as needed. Hypernatremia. Bumex was stopped. Follow-up BMP Nephrology following Thrombocytopenia. Etiology likely secondary to sepsis. Resolved. Rhabdomyolysis. CK normalized. Patient doing better History Interval history: Fever asking when he can start eating food Hospitalist Physical - Physical exam Narrative exam: Gen: Not in acute distress, lying in bed, morbidly obese HEENT: Normocephalic, atraumatic, NG tube Neck: supple, no JVD Heart: S1 and S2 reg, no murmurs, rubs or gallop Lungs: Clear to auscultation, no rhonchi, no wheeze Abd: soft, non tender, non distended, normal BS, Ext: bilateral upper ext edema, L>R, no clubbing, no cyanosis, dressing over left elbow,eschar anterior left elbow Neuro: Awake, drowsy, no focal neurological signs - Constitutional Vitals: Temp Pulse Resp BP Pulse Ox 100.5 F H 98 H 20 122/70 98 04/19/19 08:00 04/19/19 08:34 04/19/19 06:00 04/19/19 08:34 04/19/19 08:16 General appearance: Present: obese Results - Labs CBC & Chem 7: 04/18/19 04:41 04/19/19 03:49 Labs: Laboratory Last Values WBC 19.4 K/mm3 (4.5-11.0) H 04/18/19 04:41 RBC 3.03 M/mm3 (3.65-5.03) L 04/18/19 04:41 Hgb 8.6 gm/dl (11.8-15.2) L 04/18/19 04:41 Hct 27.5 % (35.5-45.6) L 04/18/19 04:41 MCV 91 fl (84-94) 04/18/19 04:41 MCH 28 pg (28-32) 04/18/19 04:41 MCHC 31 % (32-34) L 04/18/19 04:41 RDW 16.9 % (13.2-15.2) H 04/18/19 04:41 Plt Count 230 K/mm3 (140-440) 04/18/19 04:41 Lymph % (Auto) 12.6 % (13.4-35.0) L 04/17/19 04:15 [place] % (Auto) 11.1 % (0.0-7.3) H 04/17/19 04:15 Eos % (Auto) 0.8 % (0.0-4.3) 04/17/19 04:15 Baso % (Auto) 0.8 % (0.0-1.8) 04/17/19 04:15 Lymph # 2.0 K/mm3 (1.2-5.4) 04/17/19 04:15 [place] # 1.7 K/mm3 (0.0-0.8) H 04/17/19 04:15 Eos # 0.1 K/mm3 (0.0-0.4) 04/17/19 04:15 Baso # 0.1 K/mm3 (0.0-0.1) 04/17/19 04:15 Add Manual Diff Complete 04/11/19 04:16 Total Counted 100 04/11/19 04:16 Seg Neutrophils % 74.7 % (40.0-70.0) H 04/17/19 04:15 Seg Neuts % (Manual) 71.0 % (40.0-70.0) H 04/11/19 04:16 Band Neutrophils % 1.0 % 04/11/19 04:16 Lymphocytes % (Manual) 17.0 % (13.4-35.0) 04/11/19 04:16 Reactive Lymphs % (Man) 0 % 04/11/19 04:16 Monocytes % (Manual) 8.0 % (0.0-7.3) H 04/11/19 04:16 Eosinophils % (Manual) 2.0 % (0.0-4.3) 04/11/19 04:16 Basophils % (Manual) 1.0 % (0.0-1.8) 04/11/19 04:16 Metamyelocytes % 0 % 04/11/19 04:16 Myelocytes % 0 % 04/11/19 04:16 Promyelocytes % 0 % 04/11/19 04:16 Blast Cells % 0 % 04/11/19 04:16 Nucleated RBC % Not Reportable 04/11/19 04:16 Seg Neutrophils # 11.8 K/mm3 (1.8-7.7) H 04/17/19 04:15 Seg Neutrophils # Man 8.2 K/mm3 (1.8-7.7) H 04/11/19 04:16 Band Neutrophils # 0.1 K/mm3 04/11/19 04:16 Lymphocytes # (Manual) 2.0 K/mm3 (1.2-5.4) 04/11/19 04:16 Abs React Lymphs (Man) 0.0 K/mm3 04/11/19 04:16 Monocytes # (Manual) 0.9 K/mm3 (0.0-0.8) H 04/11/19 04:16 Eosinophils # (Manual) 0.2 K/mm3 (0.0-0.4) 04/11/19 04:16 Basophils # (Manual) 0.1 K/mm3 (0.0-0.1) 04/11/19 04:16 Metamyelocytes # 0.0 K/mm3 04/11/19 04:16 Myelocytes # 0.0 K/mm3 04/11/19 04:16 Promyelocytes # 0.0 K/mm3 04/11/19 04:16 Blast Cells # 0.0 K/mm3 04/11/19 04:16 WBC Morphology Not Reportable 04/11/19 04:16 Hypersegmented Neuts Not Reportable 04/11/19 04:16 Hyposegmented Neuts Not Reportable 04/11/19 04:16 Hypogranular Neuts Not Reportable 04/11/19 04:16 Smudge Cells Not Reportable 04/11/19 04:16 Toxic Granulation Not Reportable 04/11/19 04:16 Toxic Vacuolation Not Reportable 04/11/19 04:16 Dohle Bodies Not Reportable 04/11/19 04:16 Pelger-Huet Anomaly Not Reportable 04/11/19 04:16 Joyce Rods Not Reportable 04/11/19 04:16 Platelet Estimate Consistent w auto 04/11/19 04:16 Clumped Platelets Not Reportable 04/11/19 04:16 Plt Clumps, EDTA Not Reportable 04/11/19 04:16 Large Platelets Not Reportable 04/11/19 04:16 Giant Platelets Not Reportable 04/11/19 04:16 Platelet Satelliting Not Reportable 04/11/19 04:16 Plt Morphology Comment Not Reportable 04/11/19 04:16 RBC Morphology Not Reportable 04/11/19 04:16 Dimorphic RBCs Not Reportable 04/11/19 04:16 Polychromasia Not Reportable 04/11/19 04:16 Hypochromasia Not Reportable 04/11/19 04:16 Poikilocytosis Not Reportable 04/11/19 04:16 Anisocytosis Rare 04/11/19 04:16 Microcytosis Rare 04/11/19 04:16 Macrocytosis Not Reportable 04/11/19 04:16 Spherocytes Not Reportable 04/11/19 04:16 Pappenheimer Bodies Not Reportable 04/11/19 04:16 Sickle Cells Not Reportable 04/11/19 04:16 Target Cells Not Reportable 04/11/19 04:16 Tear Drop Cells Not Reportable 04/11/19 04:16 Ovalocytes Not Reportable 04/11/19 04:16 Stomatocytes Few 03/26/19 Unknown Helmet Cells Not Reportable 04/11/19 04:16 [place] Bodies Not Reportable 04/11/19 04:16 Cross Rings Not Reportable 04/11/19 04:16 Mcmillan Cells Not Reportable 04/11/19 04:16 Bite Cells Not Reportable 04/11/19 04:16 Crenated Cell Not Reportable 04/11/19 04:16 Elliptocytes Not Reportable 04/11/19 04:16 Acanthocytes (Spur) Not Reportable 04/11/19 04:16 Rouleaux Not Reportable 04/11/19 04:16 Hemoglobin C Crystals Not Reportable 04/11/19 04:16 Schistocytes Not Reportable 04/11/19 04:16 Malaria parasites Not Reportable 04/11/19 04:16 Phil Bodies Not Reportable 04/11/19 04:16 Hem Pathologist Commnt No 04/11/19 04:16 PT 15.3 Sec. (12.2-14.9) H 03/29/19 11:48 INR 1.24 (0.87-1.13) H 03/29/19 11:48 APTT 26.6 Sec. (24.2-36.6) 03/28/19 12:00 Fibrinogen 226 mg/dl (211-480) 03/28/19 12:00 D-Dimer 4845.98 ng/mlDDU (0-234) H 03/28/19 12:00 Heparin Anti-Xa Level 0.23 U.I./ml (0.3-0.7) L 03/28/19 05:13 POC ABG pH 7.401 (7.35-7.45) 04/07/19 12:57 ABG pH 7.388 pH Units (7.350-7.450) 04/06/19 05:20 POC ABG pCO2 41.5 (35-45) 04/07/19 12:57 ABG pCO2 38.5 mm Hg 04/06/19 05:20 POC ABG pO2 107 (80-105) H 04/07/19 12:57 ABG pO2 104.0 mm Hg (80.0-90.0) H 04/06/19 05:20 POC ABG HCO3 25.7 (22-26 mml/L) 04/07/19 12:57 ABG HCO3 22.6 mmol/L (20.0-26.0) 04/06/19 05:20 POC ABG Total CO2 27 (23-27mmol/L) 04/07/19 12:57 POC ABG O2 Sat 98 04/07/19 12:57 ABG O2 Saturation 97.8 % (95.0-99.0) 04/06/19 05:20 ABG O2 Content 10.0 (0.0-44) 04/06/19 05:20 POC ABG Base Excess 1 ((-2) - (+3)mmol/L) 04/07/19 12:57 ABG Base Excess -2.1 mmol/L (-2.0-3.0) L 04/06/19 05:20 ABG Hemoglobin 7.3 gm/dl (14.0-18.0) L 04/06/19 05:20 ABG Carboxyhemoglobin 1.7 % (0.0-5.0) 04/06/19 05:20 ABG Methemoglobin 0.6 % (0.0-1.5) 04/06/19 05:20 Oxyhemoglobin 95.5 % (95.0-99.0) 04/06/19 05:20 FiO2 30 % 04/07/19 12:57 Sodium 147 mmol/L (137-145) H 04/19/19 03:49 Potassium 3.3 mmol/L (3.6-5.0) L 04/19/19 03:49 Chloride 104.6 mmol/L (98-107) 04/19/19 03:49 Carbon Dioxide 29 mmol/L (22-30) 04/19/19 03:49 Anion Gap 17 mmol/L 04/19/19 03:49 BUN 45 mg/dL (9-20) H 04/19/19 03:49 Creatinine 2.9 mg/dL (0.8-1.5) H 04/19/19 03:49 Estimated GFR 24 ml/min 04/19/19 03:49 BUN/Creatinine Ratio 16 % 04/19/19 03:49 Glucose 100 mg/dL (75-100) 04/19/19 03:49 POC Glucose 124 (70-105) H 04/19/19 05:27 Lactic Acid 1.90 mmol/L (0.7-2.0) 03/21/19 21:31 Calcium 10.6 mg/dL (8.4-10.2) H 04/19/19 03:49 Ionized Calcium 3.7 mg/dL (4.8-5.6) L 03/30/19 12:09 Phosphorus 5.40 mg/dL (2.5-4.5) H 04/17/19 04:15 Magnesium 1.90 mg/dL (1.7-2.3) 03/31/19 15:07 Iron 26 ug/dL (49-181) L 04/02/19 05:03 TIBC 138 mcg/dL (250-450) L 04/02/19 05:03 Ferritin 607.0 ng/mL (13.0-400.0) H 04/02/19 05:03 Total Bilirubin 0.50 mg/dL (0.1-1.2) 04/13/19 05:00 Direct Bilirubin 0.4 mg/dL (0-0.2) H 03/31/19 08:20 Indirect Bilirubin 0.1 mg/dL 03/31/19 08:20 AST 21 units/L (5-40) 04/13/19 05:00 ALT 13 units/L (7-56) 04/13/19 05:00 Alkaline Phosphatase 52 units/L (35-129) 04/13/19 05:00 Total Creatine Kinase 62 units/L (55-170) 04/07/19 05:40 CK-MB (CK-2) 54.3 ng/mL (0.0-4.0) H 03/17/19 07:16 CK-MB (CK-2) Rel Index 0.0 (0-4) 03/17/19 07:16 Troponin T 0.058 ng/mL (0.00-0.029) H 03/17/19 07:16 C-Reactive Protein 7.10 mg/dL (0.00-1.30) H 04/17/19 04:15 Total Protein 5.8 g/dL (6.3-8.2) L 04/13/19 05:00 Albumin 2.5 g/dL (3.9-5) L 04/13/19 05:00 Albumin/Globulin Ratio 0.8 % 04/13/19 05:00 Triglycerides 309 mg/dL (2-149) H 03/29/19 06:22 Cholesterol 88 mg/dL (50-199) 03/16/19 22:32 LDL Cholesterol Direct 10 mg/dL (50-130) L 03/16/19 22:32 HDL Cholesterol 7 mg/dL (40-59) L 03/16/19 22:32 Cholesterol/HDL Ratio 12.57 % 03/16/19 22:32 Vitamin B12 903.0 pg/mL (211-911) 04/02/19 05:03 Folate 8.05 ng/mL (7.3-26.0) 04/02/19 05:03 Procalcitonin 25.42 ng/mL (<0.15) 03/27/19 19:21 TSH 2.200 mlU/mL (0.270-4.200) 03/16/19 17:05 Free T4 0.72 ng/dL (0.76-1.46) L 03/16/19 17:05 PTH Intact 329.9 pg/mL (15-65) H 03/25/19 05:00 Urine Color Yellow (Yellow) 04/15/19 22:11 Urine Turbidity Clear (Clear) 04/15/19 22:11 Urine pH 6.0 (5.0-7.0) 04/15/19 22:11 Ur Specific [place] 1.010 (1.003-1.030) 04/15/19 22:11 Urine Protein 30 mg/dl mg/dL (Negative) 04/15/19 22:11 Urine Glucose (UA) Neg mg/dL (Negative) 04/15/19 22:11 Urine Ketones Neg mg/dL (Negative) 04/15/19 22:11 Urine Blood Mod (Negative) 04/15/19 22:11 Urine Nitrite Neg (Negative) 04/15/19 22:11 Urine Bilirubin Neg (Negative) 04/15/19 22:11 Urine Urobilinogen < 2.0 mg/dL (<2.0) 04/15/19 22:11 Ur Leukocyte Esterase Neg (Negative) 04/15/19 22:11 Urine WBC (Auto) 4.0 /HPF (0.0-6.0) 04/15/19 22:11 Urine RBC (Auto) 2.0 /HPF (0.0-6.0) 04/15/19 22:11 U Epithel Cells (Auto) < 1.0 /HPF (0-13.0) 04/15/19 22:11 Amorphous Crystals 1+ 04/05/19 16:50 Urine Mucus Few /HPF 03/17/19 16:05 Urine Sperm 2+ /HPF (DESTINATION IMAGINATION COORDINATOR) 03/17/19 16:05 Urine Eosinophils None seen (None Seen) 03/17/19 16:05 Urine Creatinine 106.6 mg/dL (0.1-20.0) H 03/17/19 16:05 Urine Sodium 95 mmol/L 03/17/19 16:05 Vancomycin Trough 11.5 ug/mL (5.0-20.0) 03/18/19 13:19 Random Vancomycin 10.8 ug/mL (0-40.0) 04/14/19 03:55 Salicylates < 0.3 mg/dL (2.8-20.0) L 03/16/19 17:05 Urine Opiates Screen Presumptive negative 03/17/19 16:05 Urine Methadone Screen Presumptive negative 03/17/19 16:05 Acetaminophen < 5.0 ug/mL (10.0-30.0) L 03/16/19 17:05 Ur Barbiturates Screen Presumptive negative 03/17/19 16:05 Ur Phencyclidine Scrn Presumptive negative 03/17/19 16:05 Ur Amphetamines Screen Presumptive negative 03/17/19 16:05 U Benzodiazepines Scrn Presumptive positive 03/17/19 16:05 Urine Cocaine Screen Presumptive negative 03/17/19 16:05 U Marijuana (THC) Screen Presumptive negative 03/17/19 16:05 Drugs of Abuse Note Disclamer 03/17/19 16:05 Plasma/Serum Alcohol < 0.01 % (0-0.07) 03/16/19 17:05 Hepatitis A IgM Ab Non-reactive (NonReactive) 04/18/19 10:02 Hep Bs Antigen Non-reactive (Negative) 04/18/19 10:02 Hep B Core IgM Ab Non-reactive (NonReactive) 04/18/19 10:02 Hepatitis C Antibody Non-reactive (NonReactive) 04/18/19 10:02 HIV 1&2 Antibody Rapid Non react (Non React) 03/17/19 11:52 HIV P24 Antigen Non react (Non React) 03/17/19 11:52 Influenza A (Rapid) Negative (Negative) 03/17/19 17:00 Influenza B (Rapid) Negative (Negative) 03/17/19 17:00 Group A Strep Rapid Negative (Negative) 03/17/19 17:00 Miscellaneous Test Flexitest 1 03/21/19 12:00 Blood Type A POSITIVE 04/02/19 16:34 Antibody Screen Negative 04/02/19 16:34 Crossmatch See Detail 04/02/19 16:34 Active Medications - Current Medications Current Medications: Generic Name Dose Route Start Last Admin Trade Name Freq PRN Reason Stop Dose Admin Acetaminophen 650 mg 04/02/19 23:26 04/18/19 21:25 Tylenol PO 650 mg Q4H PRN Administration Pain, Mild (1-3),temp>100.5 Albuterol 2.5 mg 03/29/19 13:08 Proventil IH Q4HRT PRN Shortness Of Breath Amiodarone HCl 200 mg 04/15/19 22:00 04/18/19 21:25 Cordarone PO 200 mg BID PAOLO Administration Bacitracin 1 applic 04/17/19 08:00 Antibiotic Oint TP Q4H PRN upper lip sore/open Dextrose 50 gm 04/17/19 08:00 D50w (25gm) Vial IV Q1H PRN Hypoglycemia Epoetin Jet 20,000 unit 03/31/19 10:15 04/18/19 17:52 Procrit SUB-Q 20,000 unit NEYMAR PRN Administration hemodialysis Hydralazine HCl 20 mg 04/14/19 03:00 04/14/19 03:11 Apresoline IV 20 mg Q4H PRN Administration hypertemsion Hydrophilic Ointment 1 applic 03/16/19 15:50 Vaseline Lip Therapy TP Q2HR PRN Dry Lips Aztreonam 2 gm in 100 mls @ 100 mls/hr 04/17/19 18:00 04/18/19 09:26 Azactam/Ns 2 Gm/100 Ml IV 100 mls/hr Q24HR PAOLO Administration Protocol Linezolid 600 mg in 300 mls @ 300 mls/hr 04/17/19 17:00 04/19/19 04:42 Zyvox 600mg/300ml IV 300 mls/hr Q12H PAOLO Administration Protocol Sodium Chloride 100 mls @ 999 mls/hr 04/18/19 07:30 Nacl 0.9% IV NEYMAR PRN Hypotension Lansoprazole 30 mg 04/11/19 10:00 04/18/19 21:25 Prevacid Solutab FEEDTUBE 30 mg BID PAOLO Administration Metoprolol Tartrate 5 mg 04/16/19 22:24 04/17/19 14:25 Lopressor IV 5 mg Q6H PRN Administration For HR >120 Metoprolol Tartrate 25 mg 04/17/19 20:00 04/19/19 08:34 Lopressor PO 25 mg TID PAOLO Administration Multi-Ingred Cream/Lotion/Oil/Oint 1 applic 03/16/19 15:50 03/19/19 20:10 Artificial Tears Ophth Oint OU 1 applic Q4HR PRN Administration Dry Eye(s) Sodium Hypochlorite 1 applic 04/18/19 11:00 04/18/19 21:28 Dakin's Half Strength TP Not Given BID PAOLO Nutrition/Malnutrition Assess - Dietary Evaluation Nutrition/Malnutrition Findings: Nutrition Notes Start: 03/17/19 14:22 Freq: Status: Active Protocol: Document 04/13/19 10:52 RM (Rec: 04/13/19 10:58 RM [id number]) Nutrition Notes Initial or Follow up Reassessment Current Diagnosis Acute Kidney Injury,Heart Failure Other Pertinent Diagnosis on HD, Septic shock,Multiple organ failure, encephalopathy, Aspiration pneu Current Diet Nepro at 50 ml/hr Labs/Tests Na 142 BUN 42 Creat 4.6 K 3.5 Pertinent Medications Zofran, Bumetanide Height 6 ft Weight 148.5 kg [place] Body Weight (kg) 80.90 BMI 44.4 Subjective/Other Information Observed Nepro infusing at goal rate. Per nurse pt is tolerating TF. Percent of energy/protein needs met: 100%/100% Burn Absent Trauma Absent Minimum of two criteria No #1 Nutrition Diagnosis Inadequate oral intake Diagnosis Progress(for reassessment Continues documentation) Is patient on ventilator? No Is Patient Ambulatory and/or Out of Bed No REE-([facility]-confined to bed) 2892.144 Kcal/Kg value to use for calculation 14 Approximate Energy Requirements Using 2079 kcal/Kg Calculation Used for Recommendations Kcal/kg Additional Notes Protein: 97-121g (1.2-1.5g/kg, IBW) Fluids:1 ml/kcal or per MD Nutrition Intervention Nutrition Support: Nepro 1.8 at 50 ml/hr Water flush 150 ml q4hr or per MD Kcal 2,160 Protein (gm) 97 Fluid (mL) 872 Goal #1 TF tolerance Goal #2 Continue to meet at least 75% of calorie and protein needs via TF Anticipated Discharge Needs: Unable to determine at this time Follow-Up By: 04/20/19 Additional Comments Follow for TF tolerance
[2019-04-19] MEDS: AZTREONAM/NS 2 GM/100 ML 2 GM/100 ML VIAL IV SCH (09:30)
[2019-04-19] MEDS: LANSOPRAZOLE 30 MG SOLUTAB FEEDTUBE SCH ×2 (09:30→22:37)
[2019-04-19] MEDS: AMIODARONE 200 MG TAB PO SCH ×2 (09:30→22:37)
[2019-04-19] MEDS: SODIUM HYPOCHLORITE, DAKIN'S 1/2 STRENGTH (0.25%) 473 ML TOPICAL SOLN TP SCH ×2 (09:35→22:37)
--- NOTE | 2019-04-19 09:37 | Progress Note ---
Assessment and Plan 1. Acute kidney injury: Vasomotor RUBEN in the setting of shock / volume depletion / Rhabdo. Baseline renal function is unknown. CT abdomen was negative for obstructive nephropathy. Patient was started on hemodialysis on 03/18/19 due to worsening metabolic acidosis and hyperkalemia. Monitor renal function. Renal prognosis is guarded. Avoid nephrotoxic agents. Meds dosage based on GFR. Hemodialysis: 03/18, 03/19, 03/20, 03/22, 03/23, 03/24, 03/26, 03/28, 03/29, 03/31, 04/02, 04/04, 04/06, 04/09, 04/11, 04/13, 04/18. 2. FEN: Hypokalemia, replete K. Hypernatremia, monitor. Metabolic acidosis, improved. Volume overload, improving. Hypercalcemia, monitor. Low Ca bath. Monitor lytes. 3. Septic shock: Currently off pressors. Recurrent fever. ID recommended to remove the dialysis catheter. Plan to remove the dialysis catheter tomorrow after hemodialysis. 4. Rhabdomyolysis: Improved. 5. A.fib with RVR: On Amiodarone and Metoprolol. Followed by Cards. 6. Respiratory failure: Extubated. On BIPAP intermittently. 7. Severe anemia: S/p PRBC. On Epogen. 8. Elevated transaminases: Improved. 9. Encephalopathy. Examination: General appearance: well-developed, appears stated age, obese, NG tube noted HEENT: Atraumatic EYES: Pupils reacting to light Neck: supple Respiratory: CTAB, decreased breath sounds Cardiology: regular, S1S2 heard, no murmur Gastrointestinal: obese, BS heard, not tender Integumentary: no rash noted Neurologic: follows command, conversing, some confusion noted Ext: L UE edematous Hemodialysis access: R IJ temp catheter Subjective Date of service: 04/19/19 Principal diagnosis: anemia - DVT IJ Interval history: Patient was seen and examined at the bedside. Objective - Vital Signs Vital signs: Vital Signs - 12hr 04/18/19 04/18/19 04/18/19 22:00 23:00 23:01 Temperature Pulse Rate 82 85 85 Pulse Rate [ From Monitor] Respiratory 12 24 16 Rate Blood Pressure 119/70 121/67 121/67 O2 Sat by Pulse 99 98 98 Oximetry 1004/18/19 04/19/19 23:42 23:55 00:00 Temperature 99.1 F Pulse Rate 91 H 86 Pulse Rate [ 90 From Monitor] Respiratory 22 23 Rate Blood Pressure 120/73 124/76 O2 Sat by Pulse 100 98 98 Oximetry 04/19/19 04/19/19 04/19/19 01:00 02:00 03:00 Temperature Pulse Rate 93 H 94 H 92 H Pulse Rate [ From Monitor] Respiratory 11 L 13 17 Rate Blood Pressure 124/71 114/71 104/57 O2 Sat by Pulse 98 98 96 Oximetry 04/19/19 04/19/19 04/19/19 04:00 05:00 06:00 Temperature 99.0 F Pulse Rate 92 H 92 H 92 H Pulse Rate [ 92 H From Monitor] Respiratory 22 36 H 20 Rate Blood Pressure 116/59 123/65 118/59 O2 Sat by Pulse 98 98 98 Oximetry 04/19/19 04/19/19 04/19/19 08:00 08:16 08:34 Temperature 100.5 F H Pulse Rate 98 H Pulse Rate [ From Monitor] Respiratory Rate Blood Pressure 122/70 O2 Sat by Pulse 98 Oximetry - Lab 04/18/19 04:41 04/19/19 03:49 Most recent lab results ABG pH 7.388 pH Units (7.350-7.450) 04/06/19 05:20 ABG pCO2 38.5 mm Hg 04/06/19 05:20 ABG pO2 104.0 mm Hg (80.0-90.0) H 04/06/19 05:20 ABG HCO3 22.6 mmol/L (20.0-26.0) 04/06/19 05:20 ABG O2 Saturation 97.8 % (95.0-99.0) 04/06/19 05:20 Calcium 10.6 mg/dL (8.4-10.2) H 04/19/19 03:49 Phosphorus 5.40 mg/dL (2.5-4.5) H 04/17/19 04:15 Magnesium 1.90 mg/dL (1.7-2.3) 03/31/19 15:07 Urine Creatinine 106.6 mg/dL (0.1-20.0) H 03/17/19 16:05 Urine Sodium 95 mmol/L 03/17/19 16:05 Medications & Allergies - Medications Allergies/Adverse Reactions: Allergies No Known Allergies Allergy (Unverified 03/16/19 17:17) Home Medications: Home Medications Medication Instructions Recorded Confirmed Last Taken Type Unobtainable 03/18/19 03/18/19 Unknown History Active Medications: Generic Name Dose Route Start Last Admin Trade Name Freq PRN Reason Stop Dose Admin Acetaminophen 650 mg 04/02/19 23:26 04/18/19 21:25 Tylenol PO 650 mg Q4H PRN Administration Pain, Mild (1-3),temp>100.5 Albuterol 2.5 mg 03/29/19 13:08 Proventil IH Q4HRT PRN Shortness Of Breath Amiodarone HCl 200 mg 04/15/19 22:00 04/19/19 09:30 Cordarone PO 200 mg BID PAOLO Administration Bacitracin 1 applic 04/17/19 08:00 Antibiotic Oint TP Q4H PRN upper lip sore/open Dextrose 50 gm 04/17/19 08:00 D50w (25gm) Vial IV Q1H PRN Hypoglycemia Epoetin Jet 20,000 unit 03/31/19 10:15 04/18/19 17:52 Procrit SUB-Q 20,000 unit NEYMAR PRN Administration hemodialysis Hydralazine HCl 20 mg 04/14/19 03:00 04/14/19 03:11 Apresoline IV 20 mg Q4H PRN Administration hypertemsion Hydrophilic Ointment 1 applic 03/16/19 15:50 Vaseline Lip Therapy TP Q2HR PRN Dry Lips Aztreonam 2 gm in 100 mls @ 100 mls/hr 04/17/19 18:00 04/19/19 09:30 Azactam/Ns 2 Gm/100 Ml IV 100 mls/hr Q24HR PAOLO Administration Protocol Linezolid 600 mg in 300 mls @ 300 mls/hr 04/17/19 17:00 04/19/19 04:42 Zyvox 600mg/300ml IV 300 mls/hr Q12H PAOLO Administration Protocol Sodium Chloride 100 mls @ 999 mls/hr 04/18/19 07:30 Nacl 0.9% IV NEYMAR PRN Hypotension Lansoprazole 30 mg 04/11/19 10:00 04/19/19 09:30 Prevacid Solutab FEEDTUBE 30 mg BID PAOLO Administration Metoprolol Tartrate 5 mg 04/16/19 22:24 04/17/19 14:25 Lopressor IV 5 mg Q6H PRN Administration For HR >120 Metoprolol Tartrate 25 mg 04/17/19 20:00 04/19/19 08:34 Lopressor PO 25 mg TID PAOLO Administration Multi-Ingred Cream/Lotion/Oil/Oint 1 applic 03/16/19 15:50 03/19/19 20:10 Artificial Tears Ophth Oint OU 1 applic Q4HR PRN Administration Dry Eye(s) Sodium Hypochlorite 1 applic 04/18/19 11:00 04/19/19 09:35 Dakin's Half Strength TP 1 applicatio BID PAOLO Administration
--- NOTE | 2019-04-19 11:44 | Progress Note ---
Assessment and Plan Cultures: 03/16/2019 sputum: salivary contamination 03/16/2019 Blood culture: no growth 03/17/2019 Urine culture no growth 03/17/2019 throat culture: no growth 03/26/2019 Blood culture: no growth 03/27/2019 Blood culture negative. 04/04/2019 blood culture NGTD 04/05/2019 urine culture: no growth 04/11/2019 blood culture: no growth 04/15/2019 blood culture: no growth Assessment: 43y/o male with possible psych history admitted on 03/16/2019 with: 1) Septic shock: Resolved. Fever after right IJ exchanged overwire on 03/27, fever is better; leukocytosis resolved. Fever source is unclear - suspect IJ DVT ?thrombophlebitis, other ?NMS ?sinusitis, ?drug fever. Brain MRI showed no acute intracranial abnormality, mild nonspecific chronic white matter changes, fluid throughout the sinuses and mastoid air cells. Venous US + right IJ DVT. Completed empiric Cefepime x 10 days on 04/06/2019. Initial septic shock - Possible Infectious etiology v/s possibility of Neuroleptic Malignant Syndrome given psych history, high fever of 105F and extremely elevated CPK of >100K. Unclear if he was on any psych med. From ID standpoint, we will continue broad coverage for acute bacterial meningitis, tick borne illness, aspiration pneumonia. Blood culture negative UA with mild pyuria. HIV rapid negative. Strep A rapid ag negative. No obvious infectious source identified yet. 2) High fevers with elevated WBC: ?drug fever v/s infected HD cath. Blood cultures have remained negative. CXR with no obvious pneumonia. 3) Probable aspiration pneumonia, fluid overload, acute resp failure: on oxygen. Previously completed abx. 4) Acute encephalopathy: improving, awake, alert, calm. 5) Acute renal failure: renally dosing all abx, now on iHD. 6) Elevated LFTs/shock liver: resolved. 7) Thrombocytopenia: platelet normalized. 8) Rhabdomyolysis: CK normalized. 9) Multiple superficial wounds: do not appear infected. Continue wound care. Recommendations: awaiting HD catheter removal continue IV aztreonam and linezolid (in case of possible drug fever) renally adjusted for now if he remains afebrile post HD catheter removal, will d/c abx. Multiple blood cultures have remained negative f/u LANDY, C3, C4 Continue wound care Katherine Elizabeth MD, FACP [facility] ([facility]) C: [phone] O: [phone] F: [phone] Subjective Date of service: 04/19/19 Principal diagnosis: anemia - DVT IJ Interval history: One low grade temperature, otherwise no fever. No new events per RN. Patient's HR is stable now. Planned for HD cath removal this morning. Objective - Exam Narrative Exam: Physical Exam: Constitutional: awake, alert Head, Ears, Nose: Normocephalic, atraumatic. External ears, nose normal Eyes: Conjunctivae/corneas clear. No icterus. No ptosis. Neck: Supple, no meningeal signs. R IJ HD cath + Cardiovascular: S1, S2 normal. Respiratory: clear b/l GI: Soft, non-tender; bowel sounds normal. No peritoneal signs Musculoskeletal: anasarca+ with pedal and scrotal edema + Skin: superficial wounds with dressings + Hem/Lymphatic: No palpable cervical or supraclavicular nodes. No lymphangitis Psych: no agitation Neurological: awake, alert. - Constitutional Vitals: Vital Signs Temp Pulse Resp BP Pulse Ox 100.5 F H 92 H 23 125/68 98 04/19/19 08:00 04/19/19 11:00 04/19/19 11:00 04/19/19 11:00 04/19/19 11:00 Temperature -Last 24 Hours Temperature 100.5 F Temperature 99.0 F Temperature 99.1 F Temperature 98.8 F Temperature 98.8 F Temperature 98.3 F Temperature 98.6 F Temperature 98.6 F Temperature 98.6 F - Labs CBC & Chem 7: 04/18/19 04:41 04/19/19 03:49 Labs: Abnormal lab results 04/18/19 04/18/19 04/19/19 Range/Units 12:16 18:10 03:49 Sodium 147 H (137-145) mmol/L Potassium 3.3 L (3.6-5.0) mmol/L BUN 45 H (9-20) mg/dL Creatinine 2.9 H (0.8-1.5) mg/dL POC Glucose 119 H 111 H (70-105) Calcium 10.6 H (8.4-10.2) mg/dL 04/19/19 Range/Units 05:27 Sodium (137-145) mmol/L Potassium (3.6-5.0) mmol/L BUN (9-20) mg/dL Creatinine (0.8-1.5) mg/dL POC Glucose 124 H (70-105) Calcium (8.4-10.2) mg/dL
--- NOTE | 2019-04-19 11:59 | Progress Note ---
Assessment and Plan Cont present cardiac management. Consider PEG placement per primary team. No systemic AC regarding AFib in setting of anemia, thrombocytopenia, GI bleed. Can consider ischemic evaluation (stress test) once medically stabilized. The patient has been seen in conjunction with Dr. Millie Nunez who agrees with the assessment and plan of care. - Patient Problems (1) Cardiopulmonary arrest Current Visit: Yes Status: Acute (2) Acute respiratory failure Current Visit: Yes Status: Acute Qualifiers: Respiratory failure complication: hypoxia Qualified Code(s): J96.01 - Acute respiratory failure with hypoxia (3) Paroxysmal atrial fibrillation with RVR Current Visit: Yes Status: Acute (4) SVT (supraventricular tachycardia) Current Visit: Yes Status: Acute (5) Torsades de pointes Current Visit: Yes Status: Acute (6) Ventricular tachycardia Current Visit: Yes Status: Acute (7) Encephalopathy Current Visit: Yes Status: Acute (8) Septic shock Current Visit: Yes Status: Acute (9) Aspiration pneumonia Current Visit: Yes Status: Acute Qualifiers: Aspiration pneumonia type: unspecified (10) Meningitis Current Visit: Yes Status: Suspected (11) Cellulitis Current Visit: Yes Status: Acute (12) Acute renal failure Current Visit: Yes Status: Acute Qualifiers: Acute renal failure type: with acute tubular necrosis Qualified Code(s): N17.0 - Acute kidney failure with tubular necrosis (13) GI bleed Current Visit: Yes Status: Acute (14) Anemia Current Visit: Yes Status: Acute (15) Thrombocytopenia Current Visit: Yes Status: Resolved (16) DVT (deep venous thrombosis) Current Visit: Yes Status: Acute Subjective Date of service: 04/19/19 Principal diagnosis: anemia - DVT IJ Interval history: pt resting in bed, sleeping, in SR. Objective Last Vital Signs Temp 100.5 F H 04/19/19 08:00 Pulse 92 H 04/19/19 11:00 Resp 23 04/19/19 11:00 BP 125/68 04/19/19 11:00 Pulse Ox 98 04/19/19 11:00 - Physical Examination General: No Apparent Distress HEENT: Positive: EOMI, Normocephaly, Mucus Membranes Moist Neck: Positive: neck supple, trachea midline Cardiac: Positive: Reg Rate and Rhythm, S1/S2 Lungs: Positive: Decreased Breath Sounds Neuro: Positive: Grossly Intact, Other (awake, alert and oriented) Abdomen: Positive: Soft, Active Bowel Sounds. Negative: Tender /Rectal: Other (deferred) Skin: Positive: Clear. Negative: Rash Musculoskeletal: Normal Range of Motion Extremities: Present: normal. Absent: edema - Labs and Meds Comprehensive Metabolic Panel 04/19/19 Range/Units 03:49 Sodium 147 H (137-145) mmol/L Potassium 3.3 L (3.6-5.0) mmol/L Chloride 104.6 (98-107) mmol/L Carbon Dioxide 29 (22-30) mmol/L BUN 45 H (9-20) mg/dL Creatinine 2.9 H (0.8-1.5) mg/dL Glucose 100 (75-100) mg/dL Calcium 10.6 H (8.4-10.2) mg/dL - Imaging and Cardiology Echo: report reviewed ( EF 40-45%, impaired relaxation. ) - EKG Sinus rhythms and dysrhythmias: sinus rhythm - Allied health notes Allied health notes reviewed: nursing
[2019-04-19] MEDS: ACETAMINOPHEN 325 MG TAB PO PRN (12:44)
--- NOTE | 2019-04-19 13:17 | Progress Note ---
Assessment and Plan Patient is a 43 y/o man w/ a history of psychiatric illness (unknown which psychiatric diagnosis he has been given in the past), who presented on 03/16/19 with altered mental status. During the course of admission, patient was found to have sepsis with septic shock, rhabdomyolysis, RUBEN, and multiorgan failure. According to the patient's clinical findings, the patient likely has toxic metabolic encephalopathy. In support of this diagnosis, during this admission the patient has had multiple metabolic derangements including multiorgan fa ilure, sepsis, septic shock requiring pressor support, RUBEN, rhabdomyolysis. Plan: 1. Metabolic encephalopathy: - Likely due to multiple underlying metabolic derangements, as well as infections. - Mental status improved since admission. - Patient on antibiotics per ID. - Continue supportive care per ICU/primary/ID teams. - Discussed at length with patient's brother regarding current neurologic status, altered mental status due to metabolic abnormalities. -Will continue to monitor the patient's neurologic status.. Thank you for allowing me to take part in the care of this patient. Nahid Carroll MD Neurology Subjective Date of service: 04/19/19 Principal diagnosis: anemia - DVT IJ Interval history: Patient febrile overnight. Objective - Exam Narrative Exam: Patient is awake, alert, oriented to self and year, minus month, date. Following 2-step commands. PERRL, EOMI, no facial weakness noted, tongue midline, visual argueta full, bilaterally intact to light touch. Bilaterally intact light touch in all extremities.. 2+ reflexes throughout. No dysarthria or aphasia noted. RUE 3/5, LUE 2/5, 2/5 strength in bilateral lower extremities. - Vital Sign Vital Signs - 12hr 04/19/19 04/19/19 04/19/19 02:00 03:00 04:00 Temperature 99.0 F Pulse Rate 94 H 92 H 92 H Pulse Rate [ 92 H From Monitor] Respiratory 13 17 22 Rate Blood Pressure 114/71 104/57 116/59 O2 Sat by Pulse 98 96 98 Oximetry 04/19/19 04/19/19 04/19/19 05:00 06:00 07:01 Temperature Pulse Rate 92 H 92 H 96 H Pulse Rate [ From Monitor] Respiratory 36 H 20 23 Rate Blood Pressure 123/65 118/59 115/61 O2 Sat by Pulse 98 98 99 Oximetry 04/19/19 04/19/19 04/19/19 08:00 08:16 08:34 Temperature 100.5 F H Pulse Rate 95 H 98 H Pulse Rate [ 96 H From Monitor] Respiratory 32 H Rate Blood Pressure 128/69 122/70 O2 Sat by Pulse 99 98 Oximetry 04/19/19 04/19/19 04/19/19 09:00 10:00 11:00 Temperature Pulse Rate 98 H 89 92 H Pulse Rate [ From Monitor] Respiratory 15 11 L 23 Rate Blood Pressure 127/64 128/75 125/68 O2 Sat by Pulse 99 99 98 Oximetry 04/19/19 12:00 Temperature 100.9 F H Pulse Rate 92 H Pulse Rate [ 98 H From Monitor] Respiratory 25 H Rate Blood Pressure O2 Sat by Pulse 99 Oximetry - General Apperance Constitutional: comfortable - EENT EENT: ATNC, PERRL, mucous membranes moist, hearing intact, vision intact - Respiratory Respiratory: decreased breath sounds - Cardiovascular Cardiovascular: regular rate, normal S1, normal S2 Extremities: no clubbing, cyanosis, no inflammation - Gastrointestinal Gastrointestinal: normoactive bowel sounds, soft, non-tender - Laboratory Findings CBC and BMP: 04/18/19 04:41 04/19/19 03:49 Abnormal Lab Findings: Abnormal Labs 03/16/19 03/16/19 03/16/19 15:32 16:03 16:05 WBC 27.0 H RBC 5.55 H Hgb 15.7 H Hct 47.1 H MCV MCHC RDW Plt Count 75 L Lymph % (Auto) Major % (Auto) Lymph # Major # Seg Neutrophils % Seg Neuts % (Manual) 85.0 H Lymphocytes % (Manual) 2.0 L Monocytes % (Manual) Nucleated RBC % Seg Neutrophils # Seg Neutrophils # Man 23.0 H Lymphocytes # (Manual) 0.5 L Monocytes # (Manual) PT INR D-Dimer Heparin Anti-Xa Level POC ABG pH ABG pH POC ABG pCO2 POC ABG pO2 ABG pO2 ABG HCO3 ABG O2 Saturation ABG Base Excess ABG Hemoglobin Oxyhemoglobin Sodium 127 L Potassium Chloride 87.8 L Carbon Dioxide 17 L BUN 49 H Creatinine 5.8 H Glucose 150 H POC Glucose 118 H Lactic Acid Calcium 6.6 L Ionized Calcium Phosphorus Magnesium 1.10 L Iron TIBC Ferritin Total Bilirubin Direct Bilirubin AST ALT Alkaline Phosphatase Total Creatine Kinase 63638 H CK-MB (CK-2) Troponin T C-Reactive Protein Total Protein Albumin Triglycerides LDL Cholesterol Direct HDL Cholesterol Free T4 PTH Intact Urine WBC (Auto) Urine Creatinine Salicylates Acetaminophen Crossmatch 03/16/19 03/16/19 03/16/19 16:59 17:05 17:05 WBC RBC Hgb Hct MCV MCHC RDW Plt Count Lymph % (Auto) Major % (Auto) Lymph # Major # Seg Neutrophils % Seg Neuts % (Manual) Lymphocytes % (Manual) Monocytes % (Manual) Nucleated RBC % Seg Neutrophils # Seg Neutrophils # Man Lymphocytes # (Manual) Monocytes # (Manual) PT INR D-Dimer Heparin Anti-Xa Level POC ABG pH 7.297 L ABG pH POC ABG pCO2 33.0 L POC ABG pO2 ABG pO2 ABG HCO3 ABG O2 Saturation ABG Base Excess ABG Hemoglobin Oxyhemoglobin Sodium Potassium Chloride Carbon Dioxide BUN Creatinine Glucose POC Glucose Lactic Acid Calcium Ionized Calcium Phosphorus Magnesium Iron TIBC Ferritin Total Bilirubin Direct Bilirubin AST ALT Alkaline Phosphatase Total Creatine Kinase 40530 H CK-MB (CK-2) 83.1 H Troponin T C-Reactive Protein Total Protein Albumin Triglycerides LDL Cholesterol Direct HDL Cholesterol Free T4 0.72 L PTH Intact Urine WBC (Auto) Urine Creatinine Salicylates Acetaminophen Crossmatch 03/16/19 03/16/19 03/16/19 17:05 17:05 17:05 WBC RBC Hgb Hct MCV MCHC RDW Plt Count Lymph % (Auto) Major % (Auto) Lymph # Major # Seg Neutrophils % Seg Neuts % (Manual) Lymphocytes % (Manual) Monocytes % (Manual) Nucleated RBC % Seg Neutrophils # Seg Neutrophils # Man Lymphocytes # (Manual) Monocytes # (Manual) PT INR D-Dimer Heparin Anti-Xa Level POC ABG pH ABG pH POC ABG pCO2 POC ABG pO2 ABG pO2 ABG HCO3 ABG O2 Saturation ABG Base Excess ABG Hemoglobin Oxyhemoglobin Sodium Potassium Chloride Carbon Dioxide BUN Creatinine Glucose POC Glucose Lactic Acid 5.10 H* Calcium Ionized Calcium Phosphorus Magnesium Iron TIBC Ferritin Total Bilirubin Direct Bilirubin AST ALT Alkaline Phosphatase Total Creatine Kinase CK-MB (CK-2) Troponin T C-Reactive Protein Total Protein Albumin Triglycerides LDL Cholesterol Direct HDL Cholesterol Free T4 PTH Intact Urine WBC (Auto) Urine Creatinine Salicylates < 0.3 L Acetaminophen < 5.0 L Crossmatch 03/16/19 03/16/19 03/16/19 17:05 17:05 20:35 WBC RBC Hgb Hct MCV MCHC RDW Plt Count Lymph % (Auto) Major % (Auto) Lymph # Major # Seg Neutrophils % Seg Neuts % (Manual) Lymphocytes % (Manual) Monocytes % (Manual) Nucleated RBC % Seg Neutrophils # Seg Neutrophils # Man Lymphocytes # (Manual) Monocytes # (Manual) PT 15.9 H INR 1.30 H D-Dimer Heparin Anti-Xa Level POC ABG pH ABG pH POC ABG pCO2 POC ABG pO2 ABG pO2 ABG HCO3 ABG O2 Saturation ABG Base Excess ABG Hemoglobin Oxyhemoglobin Sodium Potassium Chloride Carbon Dioxide BUN Creatinine Glucose POC Glucose Lactic Acid 3.30 H* Calcium Ionized Calcium Phosphorus Magnesium Iron TIBC Ferritin Total Bilirubin 6.20 H Direct Bilirubin 5.9 H AST 800 H ALT 120 H Alkaline Phosphatase Total Creatine Kinase CK-MB (CK-2) Troponin T C-Reactive Protein Total Protein 4.4 L Albumin 2.4 L Triglycerides LDL Cholesterol Direct HDL Cholesterol Free T4 PTH Intact Urine WBC (Auto) Urine Creatinine Salicylates Acetaminophen Crossmatch 03/16/19 03/16/19 03/16/19 21:45 22:32 Unknown WBC RBC Hgb Hct MCV MCHC RDW Plt Count Lymph % (Auto) Major % (Auto) Lymph # Major # Seg Neutrophils % Seg Neuts % (Manual) Lymphocytes % (Manual) Monocytes % (Manual) Nucleated RBC % Seg Neutrophils # Seg Neutrophils # Man Lymphocytes # (Manual) Monocytes # (Manual) PT INR D-Dimer Heparin Anti-Xa Level POC ABG pH ABG pH POC ABG pCO2 POC ABG pO2 ABG pO2 ABG HCO3 ABG O2 Saturation ABG Base Excess ABG Hemoglobin Oxyhemoglobin Sodium Potassium Chloride Carbon Dioxide BUN Creatinine Glucose POC Glucose Lactic Acid 3.30 H* 3.00 H* Calcium Ionized Calcium Phosphorus Magnesium Iron TIBC Ferritin Total Bilirubin Direct Bilirubin AST ALT Alkaline Phosphatase Total Creatine Kinase CK-MB (CK-2) Troponin T 0.047 H D C-Reactive Protein Total Protein Albumin Triglycerides 395 H LDL Cholesterol Direct 10 L HDL Cholesterol 7 L Free T4 PTH Intact Urine WBC (Auto) Urine Creatinine Salicylates Acetaminophen Crossmatch 03/17/19 03/17/19 03/17/19 03:45 03:45 03:45 WBC RBC Hgb Hct MCV MCHC RDW Plt Count Lymph % (Auto) Major % (Auto) Lymph # Major # Seg Neutrophils % Seg Neuts % (Manual) Lymphocytes % (Manual) Monocytes % (Manual) Nucleated RBC % Seg Neutrophils # Seg Neutrophils # Man Lymphocytes # (Manual) Monocytes # (Manual) PT INR D-Dimer Heparin Anti-Xa Level POC ABG pH ABG pH POC ABG pCO2 POC ABG pO2 ABG pO2 ABG HCO3 ABG O2 Saturation ABG Base Excess ABG Hemoglobin Oxyhemoglobin Sodium 131 L Potassium Chloride 88.9 L Carbon Dioxide BUN 53 H Creatinine 7.1 H Glucose POC Glucose Lactic Acid 4.10 H* Calcium 5.4 L* D Ionized Calcium Phosphorus 7.30 H Magnesium 1.60 L Iron TIBC Ferritin Total Bilirubin 5.90 H Direct Bilirubin AST 801 H ALT 109 H Alkaline Phosphatase Total Creatine Kinase 31257 H 52863 H CK-MB (CK-2) 41.5 H Troponin T 0.054 H C-Reactive Protein Total Protein 4.5 L Albumin 2.0 L Triglycerides LDL Cholesterol Direct HDL Cholesterol Free T4 PTH Intact Urine WBC (Auto) Urine Creatinine Salicylates Acetaminophen Crossmatch 03/17/19 03/17/19 03/17/19 05:47 07:16 07:16 WBC RBC Hgb Hct MCV MCHC RDW Plt Count Lymph % (Auto) Major % (Auto) Lymph # Major # Seg Neutrophils % Seg Neuts % (Manual) Lymphocytes % (Manual) Monocytes % (Manual) Nucleated RBC % Seg Neutrophils # Seg Neutrophils # Man Lymphocytes # (Manual) Monocytes # (Manual) PT INR D-Dimer Heparin Anti-Xa Level POC ABG pH 7.193 L ABG pH POC ABG pCO2 45.2 H POC ABG pO2 65 L ABG pO2 ABG HCO3 ABG O2 Saturation ABG Base Excess ABG Hemoglobin Oxyhemoglobin Sodium Potassium Chloride Carbon Dioxide BUN Creatinine Glucose POC Glucose Lactic Acid 5.50 H* Calcium Ionized Calcium Phosphorus Magnesium Iron TIBC Ferritin Total Bilirubin Direct Bilirubin AST ALT Alkaline Phosphatase Total Creatine Kinase 70600 H CK-MB (CK-2) 54.3 H Troponin T 0.058 H C-Reactive Protein Total Protein Albumin Triglycerides LDL Cholesterol Direct HDL Cholesterol Free T4 PTH Intact Urine WBC (Auto) Urine Creatinine Salicylates Acetaminophen Crossmatch 03/17/19 03/17/19 03/17/19 11:52 12:51 13:01 WBC RBC Hgb Hct MCV MCHC RDW Plt Count Lymph % (Auto) Major % (Auto) Lymph # Major # Seg Neutrophils % Seg Neuts % (Manual) Lymphocytes % (Manual) Monocytes % (Manual) Nucleated RBC % Seg Neutrophils # Seg Neutrophils # Man Lymphocytes # (Manual) Monocytes # (Manual) PT INR D-Dimer Heparin Anti-Xa Level POC ABG pH 7.154 L ABG pH POC ABG pCO2 34.3 L POC ABG pO2 73 L ABG pO2 ABG HCO3 ABG O2 Saturation ABG Base Excess ABG Hemoglobin Oxyhemoglobin Sodium Potassium Chloride Carbon Dioxide BUN Creatinine Glucose POC Glucose 60 L Lactic Acid 8.20 H* Calcium Ionized Calcium Phosphorus Magnesium Iron TIBC Ferritin Total Bilirubin Direct Bilirubin AST ALT Alkaline Phosphatase Total Creatine Kinase CK-MB (CK-2) Troponin T C-Reactive Protein Total Protein Albumin Triglycerides LDL Cholesterol Direct HDL Cholesterol Free T4 PTH Intact Urine WBC (Auto) Urine Creatinine Salicylates Acetaminophen Crossmatch 03/17/19 03/17/19 03/17/19 14:37 14:37 14:37 WBC 29.3 H RBC Hgb Hct MCV MCHC RDW 15.8 H Plt Count 45 L Lymph % (Auto) Major % (Auto) Lymph # Major # Seg Neutrophils % Seg Neuts % (Manual) 81.0 H Lymphocytes % (Manual) 1.0 L Monocytes % (Manual) 15.0 H Nucleated RBC % Seg Neutrophils # Seg Neutrophils # Man 23.7 H Lymphocytes # (Manual) 0.3 L Monocytes # (Manual) 4.4 H PT INR D-Dimer Heparin Anti-Xa Level POC ABG pH ABG pH POC ABG pCO2 POC ABG pO2 ABG pO2 ABG HCO3 ABG O2 Saturation ABG Base Excess ABG Hemoglobin Oxyhemoglobin Sodium Potassium Chloride Carbon Dioxide BUN Creatinine Glucose POC Glucose Lactic Acid 4.90 H* Calcium Ionized Calcium Phosphorus Magnesium Iron TIBC Ferritin Total Bilirubin Direct Bilirubin AST ALT Alkaline Phosphatase Total Creatine Kinase CK-MB (CK-2) Troponin T C-Reactive Protein 24.90 H Total Protein Albumin Triglycerides LDL Cholesterol Direct HDL Cholesterol Free T4 PTH Intact Urine WBC (Auto) Urine Creatinine Salicylates Acetaminophen Crossmatch 03/17/19 03/17/19 03/17/19 16:05 16:05 17:02 WBC RBC Hgb Hct MCV MCHC RDW Plt Count Lymph % (Auto) Major % (Auto) Lymph # Major # Seg Neutrophils % Seg Neuts % (Manual) Lymphocytes % (Manual) Monocytes % (Manual) Nucleated RBC % Seg Neutrophils # Seg Neutrophils # Man Lymphocytes # (Manual) Monocytes # (Manual) PT INR D-Dimer Heparin Anti-Xa Level POC ABG pH 7.183 L ABG pH POC ABG pCO2 POC ABG pO2 65 L ABG pO2 ABG HCO3 ABG O2 Saturation ABG Base Excess ABG Hemoglobin Oxyhemoglobin Sodium Potassium Chloride Carbon Dioxide BUN Creatinine Glucose POC Glucose Lactic Acid Calcium Ionized Calcium Phosphorus Magnesium Iron TIBC Ferritin Total Bilirubin Direct Bilirubin AST ALT Alkaline Phosphatase Total Creatine Kinase CK-MB (CK-2) Troponin T C-Reactive Protein Total Protein Albumin Triglycerides LDL Cholesterol Direct HDL Cholesterol Free T4 PTH Intact Urine WBC (Auto) 30.0 H Urine Creatinine 106.6 H Salicylates Acetaminophen Crossmatch 03/18/19 03/18/19 03/18/19 05:12 05:16 05:53 WBC RBC Hgb Hct MCV MCHC RDW Plt Count Lymph % (Auto) Major % (Auto) Lymph # Major # Seg Neutrophils % Seg Neuts % (Manual) Lymphocytes % (Manual) Monocytes % (Manual) Nucleated RBC % Seg Neutrophils # Seg Neutrophils # Man Lymphocytes # (Manual) Monocytes # (Manual) PT INR D-Dimer Heparin Anti-Xa Level POC ABG pH 7.257 L ABG pH POC ABG pCO2 31.6 L POC ABG pO2 69 L ABG pO2 ABG HCO3 ABG O2 Saturation ABG Base Excess ABG Hemoglobin Oxyhemoglobin Sodium Potassium Chloride Carbon Dioxide BUN Creatinine Glucose POC Glucose 141 H Lactic Acid 5.00 H* Calcium Ionized Calcium Phosphorus Magnesium Iron TIBC Ferritin Total Bilirubin Direct Bilirubin AST ALT Alkaline Phosphatase Total Creatine Kinase CK-MB (CK-2) Troponin T C-Reactive Protein Total Protein Albumin Triglycerides LDL Cholesterol Direct HDL Cholesterol Free T4 PTH Intact Urine WBC (Auto) Urine Creatinine Salicylates Acetaminophen Crossmatch 03/18/19 03/18/19 03/18/19 06:57 08:40 08:40 WBC 31.7 H RBC Hgb Hct MCV MCHC RDW 15.5 H Plt Count 35 L Lymph % (Auto) Major % (Auto) Lymph # Major # Seg Neutrophils % Seg Neuts % (Manual) Lymphocytes % (Manual) Monocytes % (Manual) Nucleated RBC % Seg Neutrophils # Seg Neutrophils # Man Lymphocytes # (Manual) Monocytes # (Manual) PT INR D-Dimer Heparin Anti-Xa Level POC ABG pH ABG pH POC ABG pCO2 POC ABG pO2 ABG pO2 ABG HCO3 ABG O2 Saturation ABG Base Excess ABG Hemoglobin Oxyhemoglobin Sodium 132 L Potassium 5.5 H D Chloride 88.5 L Carbon Dioxide 18 L BUN 71 H Creatinine 8.1 H Glucose 205 H POC Glucose Lactic Acid 5.00 H* Calcium 4.1 L* D Ionized Calcium Phosphorus Magnesium 2.40 H Iron TIBC Ferritin Total Bilirubin 7.50 H Direct Bilirubin AST 1088 H ALT 159 H Alkaline Phosphatase 190 H Total Creatine Kinase 339121 H CK-MB (CK-2) Troponin T C-Reactive Protein Total Protein 4.7 L Albumin 1.8 L Triglycerides LDL Cholesterol Direct HDL Cholesterol Free T4 PTH Intact Urine WBC (Auto) Urine Creatinine Salicylates Acetaminophen Crossmatch 03/18/19 03/18/19 03/18/19 12:33 12:50 13:19 WBC RBC Hgb Hct MCV MCHC RDW Plt Count Lymph % (Auto) Major % (Auto) Lymph # Major # Seg Neutrophils % Seg Neuts % (Manual) Lymphocytes % (Manual) Monocytes % (Manual) Nucleated RBC % Seg Neutrophils # Seg Neutrophils # Man Lymphocytes # (Manual) Monocytes # (Manual) PT INR D-Dimer Heparin Anti-Xa Level POC ABG pH 7.282 L ABG pH POC ABG pCO2 POC ABG pO2 67 L ABG pO2 ABG HCO3 ABG O2 Saturation ABG Base Excess ABG Hemoglobin Oxyhemoglobin Sodium Potassium Chloride Carbon Dioxide BUN Creatinine Glucose POC Glucose 129 H Lactic Acid 3.30 H* Calcium Ionized Calcium Phosphorus Magnesium Iron TIBC Ferritin Total Bilirubin Direct Bilirubin AST ALT Alkaline Phosphatase Total Creatine Kinase CK-MB (CK-2) Troponin T C-Reactive Protein Total Protein Albumin Triglycerides LDL Cholesterol Direct HDL Cholesterol Free T4 PTH Intact Urine WBC (Auto) Urine Creatinine Salicylates Acetaminophen Crossmatch 03/18/19 03/18/19 03/18/19 13:19 16:50 18:11 WBC RBC Hgb Hct MCV MCHC RDW Plt Count Lymph % (Auto) Major % (Auto) Lymph # Major # Seg Neutrophils % Seg Neuts % (Manual) Lymphocytes % (Manual) Monocytes % (Manual) Nucleated RBC % Seg Neutrophils # Seg Neutrophils # Man Lymphocytes # (Manual) Monocytes # (Manual) PT INR D-Dimer Heparin Anti-Xa Level POC ABG pH ABG pH POC ABG pCO2 POC ABG pO2 59 L ABG pO2 ABG HCO3 ABG O2 Saturation ABG Base Excess ABG Hemoglobin Oxyhemoglobin Sodium Potassium Chloride Carbon Dioxide BUN Creatinine Glucose POC Glucose 151 H Lactic Acid Calcium 4.2 L* Ionized Calcium Phosphorus Magnesium Iron TIBC Ferritin Total Bilirubin Direct Bilirubin AST ALT Alkaline Phosphatase Total Creatine Kinase 506098 H CK-MB (CK-2) Troponin T C-Reactive Protein Total Protein Albumin Triglycerides LDL Cholesterol Direct HDL Cholesterol Free T4 PTH Intact Urine WBC (Auto) Urine Creatinine Salicylates Acetaminophen Crossmatch 03/18/19 03/18/19 03/19/19 18:20 23:39 01:42 WBC RBC Hgb Hct MCV MCHC RDW Plt Count Lymph % (Auto) Major % (Auto) Lymph # Major # Seg Neutrophils % Seg Neuts % (Manual) Lymphocytes % (Manual) Monocytes % (Manual) Nucleated RBC % Seg Neutrophils # Seg Neutrophils # Man Lymphocytes # (Manual) Monocytes # (Manual) PT INR D-Dimer Heparin Anti-Xa Level POC ABG pH 7.345 L ABG pH 7.285 L POC ABG pCO2 POC ABG pO2 59 L ABG pO2 44.0 L ABG HCO3 ABG O2 Saturation 70.9 L ABG Base Excess -5.7 L ABG Hemoglobin 11.9 L Oxyhemoglobin 69.6 L Sodium Potassium Chloride Carbon Dioxide BUN Creatinine Glucose POC Glucose 152 H Lactic Acid Calcium Ionized Calcium Phosphorus Magnesium Iron TIBC Ferritin Total Bilirubin Direct Bilirubin AST ALT Alkaline Phosphatase Total Creatine Kinase CK-MB (CK-2) Troponin T C-Reactive Protein Total Protein Albumin Triglycerides LDL Cholesterol Direct HDL Cholesterol Free T4 PTH Intact Urine WBC (Auto) Urine Creatinine Salicylates Acetaminophen Crossmatch 03/19/19 03/19/19 03/19/19 04:00 04:00 05:35 WBC 36.5 H RBC Hgb Hct MCV MCHC RDW 15.8 H Plt Count 35 L Lymph % (Auto) Major % (Auto) Lymph # Major # Seg Neutrophils % Seg Neuts % (Manual) Lymphocytes % (Manual) Monocytes % (Manual) Nucleated RBC % Seg Neutrophils # Seg Neutrophils # Man Lymphocytes # (Manual) Monocytes # (Manual) PT INR D-Dimer Heparin Anti-Xa Level POC ABG pH ABG pH 7.265 L POC ABG pCO2 POC ABG pO2 ABG pO2 35.4 L* ABG HCO3 ABG O2 Saturation 54.4 L ABG Base Excess -6.7 L ABG Hemoglobin 12.9 L Oxyhemoglobin 53.4 L Sodium 132 L Potassium 5.7 H Chloride 89.8 L Carbon Dioxide 19 L BUN 62 H Creatinine 6.4 H Glucose 151 H POC Glucose Lactic Acid Calcium 5.2 L* D Ionized Calcium Phosphorus Magnesium Iron TIBC Ferritin Total Bilirubin 7.80 H Direct Bilirubin AST 682 H ALT 130 H Alkaline Phosphatase 167 H Total Creatine Kinase CK-MB (CK-2) Troponin T C-Reactive Protein Total Protein 4.8 L Albumin 2.3 L Triglycerides LDL Cholesterol Direct HDL Cholesterol Free T4 PTH Intact Urine WBC (Auto) Urine Creatinine Salicylates Acetaminophen Crossmatch 03/19/19 03/19/19 03/19/19 05:49 09:16 09:50 WBC RBC Hgb Hct MCV MCHC RDW Plt Count Lymph % (Auto) Major % (Auto) Lymph # Major # Seg Neutrophils % Seg Neuts % (Manual) Lymphocytes % (Manual) Monocytes % (Manual) Nucleated RBC % Seg Neutrophils # Seg Neutrophils # Man Lymphocytes # (Manual) Monocytes # (Manual) PT INR D-Dimer Heparin Anti-Xa Level POC ABG pH 7.222 L ABG pH POC ABG pCO2 56.6 H POC ABG pO2 ABG pO2 ABG HCO3 ABG O2 Saturation ABG Base Excess ABG Hemoglobin Oxyhemoglobin Sodium Potassium Chloride Carbon Dioxide BUN Creatinine Glucose POC Glucose 154 H Lactic Acid 2.70 H* Calcium Ionized Calcium Phosphorus Magnesium Iron TIBC Ferritin Total Bilirubin Direct Bilirubin AST ALT Alkaline Phosphatase Total Creatine Kinase CK-MB (CK-2) Troponin T C-Reactive Protein Total Protein Albumin Triglycerides LDL Cholesterol Direct HDL Cholesterol Free T4 PTH Intact Urine WBC (Auto) Urine Creatinine Salicylates Acetaminophen Crossmatch 03/19/19 03/19/19 03/19/19 09:50 11:28 17:58 WBC RBC Hgb Hct MCV MCHC RDW Plt Count Lymph % (Auto) Major % (Auto) Lymph # Major # Seg Neutrophils % Seg Neuts % (Manual) Lymphocytes % (Manual) Monocytes % (Manual) Nucleated RBC % Seg Neutrophils # Seg Neutrophils # Man Lymphocytes # (Manual) Monocytes # (Manual) PT INR D-Dimer Heparin Anti-Xa Level POC ABG pH 7.250 L ABG pH POC ABG pCO2 52.6 H POC ABG pO2 ABG pO2 ABG HCO3 ABG O2 Saturation ABG Base Excess ABG Hemoglobin Oxyhemoglobin Sodium Potassium Chloride Carbon Dioxide BUN Creatinine Glucose POC Glucose 160 H Lactic Acid Calcium Ionized Calcium Phosphorus Magnesium Iron TIBC Ferritin Total Bilirubin Direct Bilirubin AST ALT Alkaline Phosphatase Total Creatine Kinase 67434 H CK-MB (CK-2) Troponin T C-Reactive Protein Total Protein Albumin Triglycerides LDL Cholesterol Direct HDL Cholesterol Free T4 PTH Intact Urine WBC (Auto) Urine Creatinine Salicylates Acetaminophen Crossmatch 03/19/19 03/19/19 03/20/19 19:48 21:03 02:16 WBC RBC Hgb Hct MCV MCHC RDW Plt Count Lymph % (Auto) Major % (Auto) Lymph # Major # Seg Neutrophils % Seg Neuts % (Manual) Lymphocytes % (Manual) Monocytes % (Manual) Nucleated RBC % Seg Neutrophils # Seg Neutrophils # Man Lymphocytes # (Manual) Monocytes # (Manual) PT INR D-Dimer Heparin Anti-Xa Level POC ABG pH 7.279 L ABG pH POC ABG pCO2 50.3 H POC ABG pO2 129 H ABG pO2 ABG HCO3 ABG O2 Saturation ABG Base Excess ABG Hemoglobin Oxyhemoglobin Sodium Potassium Chloride Carbon Dioxide BUN Creatinine Glucose POC Glucose 119 H 119 H Lactic Acid Calcium Ionized Calcium Phosphorus Magnesium Iron TIBC Ferritin Total Bilirubin Direct Bilirubin AST ALT Alkaline Phosphatase Total Creatine Kinase CK-MB (CK-2) Troponin T C-Reactive Protein Total Protein Albumin Triglycerides LDL Cholesterol Direct HDL Cholesterol Free T4 PTH Intact Urine WBC (Auto) Urine Creatinine Salicylates Acetaminophen Crossmatch 03/20/19 03/20/19 03/20/19 04:23 05:05 09:30 WBC 36.3 H RBC Hgb Hct MCV MCHC RDW 15.5 H Plt Count 29 L Lymph % (Auto) Major % (Auto) Lymph # Major # Seg Neutrophils % Seg Neuts % (Manual) Lymphocytes % (Manual) Monocytes % (Manual) Nucleated RBC % Seg Neutrophils # Seg Neutrophils # Man Lymphocytes # (Manual) Monocytes # (Manual) PT INR D-Dimer Heparin Anti-Xa Level POC ABG pH ABG pH POC ABG pCO2 POC ABG pO2 280 H ABG pO2 ABG HCO3 ABG O2 Saturation ABG Base Excess ABG Hemoglobin Oxyhemoglobin Sodium Potassium Chloride Carbon Dioxide BUN Creatinine Glucose POC Glucose 115 H Lactic Acid Calcium Ionized Calcium Phosphorus Magnesium Iron TIBC Ferritin Total Bilirubin Direct Bilirubin AST ALT Alkaline Phosphatase Total Creatine Kinase CK-MB (CK-2) Troponin T C-Reactive Protein Total Protein Albumin Triglycerides LDL Cholesterol Direct HDL Cholesterol Free T4 PTH Intact Urine WBC (Auto) Urine Creatinine Salicylates Acetaminophen Crossmatch 03/20/19 03/20/19 03/20/19 09:30 09:30 11:34 WBC RBC Hgb Hct MCV MCHC RDW Plt Count Lymph % (Auto) Major % (Auto) Lymph # Major # Seg Neutrophils % Seg Neuts % (Manual) Lymphocytes % (Manual) Monocytes % (Manual) Nucleated RBC % Seg Neutrophils # Seg Neutrophils # Man Lymphocytes # (Manual) Monocytes # (Manual) PT INR D-Dimer Heparin Anti-Xa Level POC ABG pH ABG pH POC ABG pCO2 POC ABG pO2 ABG pO2 ABG HCO3 ABG O2 Saturation ABG Base Excess ABG Hemoglobin Oxyhemoglobin Sodium 131 L Potassium Chloride 92.3 L Carbon Dioxide 20 L BUN 68 H Creatinine 6.1 H Glucose 164 H POC Glucose 141 H Lactic Acid Calcium 5.3 L* Ionized Calcium Phosphorus Magnesium Iron TIBC Ferritin Total Bilirubin 9.50 H Direct Bilirubin AST 381 H ALT 116 H Alkaline Phosphatase 255 H Total Creatine Kinase 34886 H CK-MB (CK-2) Troponin T C-Reactive Protein Total Protein 5.1 L Albumin 2.3 L Triglycerides LDL Cholesterol Direct HDL Cholesterol Free T4 PTH Intact Urine WBC (Auto) Urine Creatinine Salicylates Acetaminophen Crossmatch 03/20/19 03/20/19 03/20/19 14:41 14:45 18:50 WBC RBC Hgb Hct MCV MCHC RDW Plt Count Lymph % (Auto) Major % (Auto) Lymph # Major # Seg Neutrophils % Seg Neuts % (Manual) Lymphocytes % (Manual) Monocytes % (Manual) Nucleated RBC % Seg Neutrophils # Seg Neutrophils # Man Lymphocytes # (Manual) Monocytes # (Manual) PT INR D-Dimer Heparin Anti-Xa Level POC ABG pH ABG pH POC ABG pCO2 POC ABG pO2 ABG pO2 ABG HCO3 ABG O2 Saturation ABG Base Excess ABG Hemoglobin Oxyhemoglobin Sodium Potassium Chloride Carbon Dioxide BUN Creatinine Glucose POC Glucose 117 H Lactic Acid 2.90 H* Calcium Ionized Calcium Phosphorus Magnesium Iron TIBC Ferritin Total Bilirubin Direct Bilirubin AST ALT Alkaline Phosphatase Total Creatine Kinase CK-MB (CK-2) Troponin T C-Reactive Protein 13.30 H Total Protein Albumin Triglycerides LDL Cholesterol Direct HDL Cholesterol Free T4 PTH Intact Urine WBC (Auto) Urine Creatinine Salicylates Acetaminophen Crossmatch 03/20/19 03/21/19 03/21/19 21:55 04:26 04:26 WBC 37.8 H RBC Hgb Hct MCV MCHC RDW 15.4 H Plt Count 36 L Lymph % (Auto) Major % (Auto) Lymph # Major # Seg Neutrophils % Seg Neuts % (Manual) 93.0 H Lymphocytes % (Manual) 3.0 L Monocytes % (Manual) Nucleated RBC % 1.0 H Seg Neutrophils # 34.6 H Seg Neutrophils # Man 35.2 H Lymphocytes # (Manual) 1.1 L Monocytes # (Manual) PT INR D-Dimer Heparin Anti-Xa Level POC ABG pH ABG pH POC ABG pCO2 POC ABG pO2 ABG pO2 ABG HCO3 ABG O2 Saturation ABG Base Excess ABG Hemoglobin Oxyhemoglobin Sodium 131 L Potassium Chloride 90.7 L Carbon Dioxide 21 L BUN 69 H Creatinine 5.7 H Glucose 170 H POC Glucose 128 H Lactic Acid Calcium 6.1 L D Ionized Calcium Phosphorus Magnesium Iron TIBC Ferritin Total Bilirubin 9.50 H Direct Bilirubin AST 308 H ALT 124 H Alkaline Phosphatase 327 H Total Creatine Kinase 01443 H CK-MB (CK-2) Troponin T C-Reactive Protein Total Protein 5.7 L Albumin 2.6 L Triglycerides LDL Cholesterol Direct HDL Cholesterol Free T4 PTH Intact Urine WBC (Auto) Urine Creatinine Salicylates Acetaminophen Crossmatch 03/21/19 03/21/19 03/21/19 05:17 05:39 08:29 WBC RBC Hgb Hct MCV MCHC RDW Plt Count Lymph % (Auto) Major % (Auto) Lymph # Major # Seg Neutrophils % Seg Neuts % (Manual) Lymphocytes % (Manual) Monocytes % (Manual) Nucleated RBC % Seg Neutrophils # Seg Neutrophils # Man Lymphocytes # (Manual) Monocytes # (Manual) PT INR D-Dimer Heparin Anti-Xa Level POC ABG pH ABG pH POC ABG pCO2 POC ABG pO2 209 H ABG pO2 ABG HCO3 ABG O2 Saturation ABG Base Excess ABG Hemoglobin Oxyhemoglobin Sodium Potassium Chloride Carbon Dioxide BUN Creatinine Glucose POC Glucose 145 H Lactic Acid Calcium Ionized Calcium Phosphorus Magnesium Iron TIBC Ferritin Total Bilirubin Direct Bilirubin AST ALT Alkaline Phosphatase Total Creatine Kinase 55022 H CK-MB (CK-2) Troponin T C-Reactive Protein Total Protein Albumin Triglycerides LDL Cholesterol Direct HDL Cholesterol Free T4 PTH Intact Urine WBC (Auto) Urine Creatinine Salicylates Acetaminophen Crossmatch 03/21/19 03/21/19 03/21/19 08:29 11:43 12:00 WBC RBC Hgb Hct MCV MCHC RDW Plt Count Lymph % (Auto) Major % (Auto) Lymph # Major # Seg Neutrophils % Seg Neuts % (Manual) Lymphocytes % (Manual) Monocytes % (Manual) Nucleated RBC % Seg Neutrophils # Seg Neutrophils # Man Lymphocytes # (Manual) Monocytes # (Manual) PT INR D-Dimer Heparin Anti-Xa Level POC ABG pH ABG pH POC ABG pCO2 POC ABG pO2 ABG pO2 ABG HCO3 ABG O2 Saturation ABG Base Excess ABG Hemoglobin Oxyhemoglobin Sodium Potassium Chloride Carbon Dioxide BUN Creatinine Glucose POC Glucose 123 H Lactic Acid 2.60 H* 2.20 H* Calcium Ionized Calcium Phosphorus Magnesium Iron TIBC Ferritin Total Bilirubin Direct Bilirubin AST ALT Alkaline Phosphatase Total Creatine Kinase CK-MB (CK-2) Troponin T C-Reactive Protein Total Protein Albumin Triglycerides LDL Cholesterol Direct HDL Cholesterol Free T4 PTH Intact Urine WBC (Auto) Urine Creatinine Salicylates Acetaminophen Crossmatch 03/21/19 03/21/19 03/21/19 14:11 18:28 19:32 WBC RBC Hgb Hct MCV MCHC RDW Plt Count Lymph % (Auto) Major % (Auto) Lymph # Major # Seg Neutrophils % Seg Neuts % (Manual) Lymphocytes % (Manual) Monocytes % (Manual) Nucleated RBC % Seg Neutrophils # Seg Neutrophils # Man Lymphocytes # (Manual) Monocytes # (Manual) PT INR D-Dimer Heparin Anti-Xa Level POC ABG pH 7.293 L ABG pH POC ABG pCO2 POC ABG pO2 ABG pO2 ABG HCO3 ABG O2 Saturation ABG Base Excess ABG Hemoglobin Oxyhemoglobin Sodium Potassium Chloride Carbon Dioxide BUN Creatinine Glucose POC Glucose 153 H Lactic Acid 2.10 H* Calcium Ionized Calcium Phosphorus Magnesium Iron TIBC Ferritin Total Bilirubin Direct Bilirubin AST ALT Alkaline Phosphatase Total Creatine Kinase CK-MB (CK-2) Troponin T C-Reactive Protein Total Protein Albumin Triglycerides LDL Cholesterol Direct HDL Cholesterol Free T4 PTH Intact Urine WBC (Auto) Urine Creatinine Salicylates Acetaminophen Crossmatch 03/21/19 03/22/19 03/22/19 23:38 05:08 05:51 WBC RBC Hgb Hct MCV MCHC RDW Plt Count Lymph % (Auto) Major % (Auto) Lymph # Major # Seg Neutrophils % Seg Neuts % (Manual) Lymphocytes % (Manual) Monocytes % (Manual) Nucleated RBC % Seg Neutrophils # Seg Neutrophils # Man Lymphocytes # (Manual) Monocytes # (Manual) PT INR D-Dimer Heparin Anti-Xa Level POC ABG pH 7.283 L ABG pH POC ABG pCO2 POC ABG pO2 53 L ABG pO2 ABG HCO3 ABG O2 Saturation ABG Base Excess ABG Hemoglobin Oxyhemoglobin Sodium Potassium Chloride Carbon Dioxide BUN Creatinine Glucose POC Glucose 149 H 131 H Lactic Acid Calcium Ionized Calcium Phosphorus Magnesium Iron TIBC Ferritin Total Bilirubin Direct Bilirubin AST ALT Alkaline Phosphatase Total Creatine Kinase CK-MB (CK-2) Troponin T C-Reactive Protein Total Protein Albumin Triglycerides LDL Cholesterol Direct HDL Cholesterol Free T4 PTH Intact Urine WBC (Auto) Urine Creatinine Salicylates Acetaminophen Crossmatch 03/22/19 03/22/19 03/22/19 08:00 08:00 18:19 WBC 36.7 H RBC Hgb 11.0 L Hct 33.5 L MCV MCHC RDW 15.5 H Plt Count 43 L Lymph % (Auto) Major % (Auto) Lymph # Major # Seg Neutrophils % Seg Neuts % (Manual) 87.0 H Lymphocytes % (Manual) 7.0 L Monocytes % (Manual) Nucleated RBC % Seg Neutrophils # Seg Neutrophils # Man 31.9 H Lymphocytes # (Manual) Monocytes # (Manual) PT INR D-Dimer Heparin Anti-Xa Level POC ABG pH ABG pH POC ABG pCO2 46.4 H POC ABG pO2 108 H ABG pO2 ABG HCO3 ABG O2 Saturation ABG Base Excess ABG Hemoglobin Oxyhemoglobin Sodium 132 L Potassium 5.6 H Chloride 89.6 L Carbon Dioxide 20 L BUN 101 H Creatinine 7.4 H Glucose 124 H POC Glucose Lactic Acid Calcium 5.2 L* Ionized Calcium Phosphorus Magnesium Iron TIBC Ferritin Total Bilirubin 2.80 H Direct Bilirubin AST 119 H ALT 86 H Alkaline Phosphatase 245 H Total Creatine Kinase CK-MB (CK-2) Troponin T C-Reactive Protein Total Protein 5.6 L Albumin 2.5 L Triglycerides LDL Cholesterol Direct HDL Cholesterol Free T4 PTH Intact Urine WBC (Auto) Urine Creatinine Salicylates Acetaminophen Crossmatch 03/22/19 03/23/19 03/23/19 20:37 04:49 05:28 WBC 35.9 H RBC Hgb 10.8 L Hct 33.2 L MCV MCHC RDW 15.5 H Plt Count 49 L Lymph % (Auto) Major % (Auto) Lymph # Major # Seg Neutrophils % Seg Neuts % (Manual) 81.0 H Lymphocytes % (Manual) 3.5 L Monocytes % (Manual) Nucleated RBC % Seg Neutrophils # Seg Neutrophils # Man 29.1 H Lymphocytes # (Manual) Monocytes # (Manual) 1.4 H PT INR D-Dimer Heparin Anti-Xa Level POC ABG pH 7.296 L ABG pH POC ABG pCO2 46.2 H POC ABG pO2 ABG pO2 ABG HCO3 ABG O2 Saturation ABG Base Excess ABG Hemoglobin Oxyhemoglobin Sodium 129 L Potassium 5.2 H Chloride 91.1 L Carbon Dioxide BUN 91 H Creatinine 6.6 H Glucose 190 H POC Glucose Lactic Acid Calcium 5.3 L* Ionized Calcium Phosphorus Magnesium Iron TIBC Ferritin Total Bilirubin 1.80 H Direct Bilirubin AST 80 H ALT 62 H Alkaline Phosphatase 209 H Total Creatine Kinase 9758 H CK-MB (CK-2) Troponin T C-Reactive Protein Total Protein 5.2 L Albumin 2.2 L Triglycerides LDL Cholesterol Direct HDL Cholesterol Free T4 PTH Intact Urine WBC (Auto) Urine Creatinine Salicylates Acetaminophen Crossmatch 03/23/19 03/23/19 03/23/19 05:28 05:31 11:33 WBC 29.7 H RBC 3.59 L Hgb 10.1 L Hct 31.1 L MCV MCHC RDW 15.4 H Plt Count 47 L Lymph % (Auto) Major % (Auto) Lymph # Major # Seg Neutrophils % Seg Neuts % (Manual) 89.0 H Lymphocytes % (Manual) 6.0 L Monocytes % (Manual) Nucleated RBC % 1.0 H Seg Neutrophils # Seg Neutrophils # Man 26.4 H Lymphocytes # (Manual) Monocytes # (Manual) PT INR D-Dimer Heparin Anti-Xa Level POC ABG pH ABG pH POC ABG pCO2 POC ABG pO2 ABG pO2 ABG HCO3 ABG O2 Saturation ABG Base Excess ABG Hemoglobin Oxyhemoglobin Sodium Potassium Chloride Carbon Dioxide BUN Creatinine Glucose POC Glucose 122 H 113 H Lactic Acid Calcium Ionized Calcium Phosphorus Magnesium Iron TIBC Ferritin Total Bilirubin Direct Bilirubin AST ALT Alkaline Phosphatase Total Creatine Kinase CK-MB (CK-2) Troponin T C-Reactive Protein Total Protein Albumin Triglycerides LDL Cholesterol Direct HDL Cholesterol Free T4 PTH Intact Urine WBC (Auto) Urine Creatinine Salicylates Acetaminophen Crossmatch 03/23/19 03/24/19 03/24/19 17:47 00:00 04:50 WBC 35.0 H RBC Hgb 10.4 L Hct 32.4 L MCV MCHC RDW Plt Count 60 L Lymph % (Auto) Major % (Auto) Lymph # Major # Seg Neutrophils % Seg Neuts % (Manual) 93.0 H Lymphocytes % (Manual) 5.0 L Monocytes % (Manual) Nucleated RBC % 7.0 H Seg Neutrophils # Seg Neutrophils # Man 32.6 H Lymphocytes # (Manual) Monocytes # (Manual) PT INR D-Dimer Heparin Anti-Xa Level POC ABG pH ABG pH POC ABG pCO2 POC ABG pO2 ABG pO2 ABG HCO3 ABG O2 Saturation ABG Base Excess ABG Hemoglobin Oxyhemoglobin Sodium Potassium Chloride Carbon Dioxide BUN Creatinine Glucose POC Glucose 111 H 108 H Lactic Acid Calcium Ionized Calcium Phosphorus Magnesium Iron TIBC Ferritin Total Bilirubin Direct Bilirubin AST ALT Alkaline Phosphatase Total Creatine Kinase CK-MB (CK-2) Troponin T C-Reactive Protein Total Protein Albumin Triglycerides LDL Cholesterol Direct HDL Cholesterol Free T4 PTH Intact Urine WBC (Auto) Urine Creatinine Salicylates Acetaminophen Crossmatch 03/24/19 03/24/19 03/24/19 04:50 05:06 12:55 WBC RBC Hgb Hct MCV MCHC RDW Plt Count Lymph % (Auto) Major % (Auto) Lymph # Major # Seg Neutrophils % Seg Neuts % (Manual) Lymphocytes % (Manual) Monocytes % (Manual) Nucleated RBC % Seg Neutrophils # Seg Neutrophils # Man Lymphocytes # (Manual) Monocytes # (Manual) PT INR D-Dimer Heparin Anti-Xa Level POC ABG pH ABG pH POC ABG pCO2 POC ABG pO2 ABG pO2 ABG HCO3 ABG O2 Saturation ABG Base Excess ABG Hemoglobin Oxyhemoglobin Sodium 134 L Potassium 5.1 H Chloride 95.3 L Carbon Dioxide 21 L BUN 85 H Creatinine 6.4 H Glucose 109 H POC Glucose 112 H 110 H Lactic Acid Calcium 5.8 L* Ionized Calcium Phosphorus Magnesium Iron TIBC Ferritin Total Bilirubin Direct Bilirubin AST ALT Alkaline Phosphatase Total Creatine Kinase 5747 H CK-MB (CK-2) Troponin T C-Reactive Protein Total Protein Albumin Triglycerides LDL Cholesterol Direct HDL Cholesterol Free T4 PTH Intact Urine WBC (Auto) Urine Creatinine Salicylates Acetaminophen Crossmatch 03/24/19 03/25/19 03/25/19 23:29 05:00 05:00 WBC RBC Hgb Hct MCV MCHC RDW Plt Count Lymph % (Auto) Major % (Auto) Lymph # Major # Seg Neutrophils % Seg Neuts % (Manual) Lymphocytes % (Manual) Monocytes % (Manual) Nucleated RBC % Seg Neutrophils # Seg Neutrophils # Man Lymphocytes # (Manual) Monocytes # (Manual) PT INR D-Dimer Heparin Anti-Xa Level POC ABG pH ABG pH POC ABG pCO2 POC ABG pO2 ABG pO2 ABG HCO3 ABG O2 Saturation ABG Base Excess ABG Hemoglobin Oxyhemoglobin Sodium 133 L Potassium Chloride 94.0 L Carbon Dioxide 21 L BUN 81 H Creatinine 6.4 H Glucose POC Glucose 109 H Lactic Acid Calcium 5.5 L* Ionized Calcium Phosphorus Magnesium Iron TIBC Ferritin Total Bilirubin Direct Bilirubin AST 80 H ALT Alkaline Phosphatase 202 H Total Creatine Kinase 3589 H CK-MB (CK-2) Troponin T C-Reactive Protein Total Protein 5.3 L Albumin 2.4 L Triglycerides LDL Cholesterol Direct HDL Cholesterol Free T4 PTH Intact 329.9 H Urine WBC (Auto) Urine Creatinine Salicylates Acetaminophen Crossmatch 03/25/19 03/25/19 03/26/19 05:00 06:30 04:30 WBC 23.3 H RBC 3.61 L Hgb 10.2 L Hct 31.2 L MCV MCHC RDW Plt Count 57 L Lymph % (Auto) Major % (Auto) Lymph # Major # Seg Neutrophils % Seg Neuts % (Manual) 92.0 H Lymphocytes % (Manual) 6.0 L Monocytes % (Manual) Nucleated RBC % Seg Neutrophils # Seg Neutrophils # Man 21.4 H Lymphocytes # (Manual) Monocytes # (Manual) PT INR D-Dimer Heparin Anti-Xa Level POC ABG pH ABG pH 7.326 L POC ABG pCO2 POC ABG pO2 ABG pO2 109.5 H 137.4 H ABG HCO3 18.8 L 18.6 L ABG O2 Saturation ABG Base Excess -4.4 L -6.8 L ABG Hemoglobin 10.1 L 9.9 L Oxyhemoglobin Sodium Potassium Chloride Carbon Dioxide BUN Creatinine Glucose POC Glucose Lactic Acid Calcium Ionized Calcium Phosphorus Magnesium Iron TIBC Ferritin Total Bilirubin Direct Bilirubin AST ALT Alkaline Phosphatase Total Creatine Kinase CK-MB (CK-2) Troponin T C-Reactive Protein Total Protein Albumin Triglycerides LDL Cholesterol Direct HDL Cholesterol Free T4 PTH Intact Urine WBC (Auto) Urine Creatinine Salicylates Acetaminophen Crossmatch 03/26/19 03/26/1903/26/19 23:22 Unknown Unknown WBC 19.5 H RBC 3.44 L Hgb 9.8 L Hct 29.9 L MCV MCHC RDW Plt Count 85 L Lymph % (Auto) Major % (Auto) Lymph # Major # Seg Neutrophils % Seg Neuts % (Manual) 95.0 H Lymphocytes % (Manual) 3.0 L Monocytes % (Manual) Nucleated RBC % Seg Neutrophils # Seg Neutrophils # Man 18.5 H Lymphocytes # (Manual) 0.6 L Monocytes # (Manual) PT INR D-Dimer Heparin Anti-Xa Level POC ABG pH ABG pH POC ABG pCO2 POC ABG pO2 ABG pO2 ABG HCO3 ABG O2 Saturation ABG Base Excess ABG Hemoglobin Oxyhemoglobin Sodium 135 L Potassium 5.2 H D Chloride 92.2 L Carbon Dioxide 18 L BUN 109 H Creatinine 8.5 H Glucose 117 H POC Glucose 69 L Lactic Acid Calcium 4.5 L* D Ionized Calcium Phosphorus Magnesium Iron TIBC Ferritin Total Bilirubin Direct Bilirubin AST ALT Alkaline Phosphatase Total Creatine Kinase 4527 H CK-MB (CK-2) Troponin T C-Reactive Protein Total Protein Albumin Triglycerides LDL Cholesterol Direct HDL Cholesterol Free T4 PTH Intact Urine WBC (Auto) Urine Creatinine Salicylates Acetaminophen Crossmatch 03/27/19 03/27/19 03/27/19 04:30 04:30 09:00 WBC 19.2 H RBC 3.42 L Hgb 9.9 L Hct 30.0 L MCV MCHC RDW Plt Count 84 L Lymph % (Auto) Major % (Auto) Lymph # Major # Seg Neutrophils % Seg Neuts % (Manual) Lymphocytes % (Manual) Monocytes % (Manual) Nucleated RBC % Seg Neutrophils # Seg Neutrophils # Man Lymphocytes # (Manual) Monocytes # (Manual) PT INR D-Dimer Heparin Anti-Xa Level POC ABG pH ABG pH POC ABG pCO2 POC ABG pO2 ABG pO2 ABG HCO3 ABG O2 Saturation ABG Base Excess ABG Hemoglobin Oxyhemoglobin Sodium 135 L Potassium Chloride 93.5 L Carbon Dioxide BUN 84 H Creatinine 7.1 H Glucose POC Glucose Lactic Acid Calcium 5.0 L* Ionized Calcium Phosphorus Magnesium Iron TIBC Ferritin Total Bilirubin Direct Bilirubin AST 78 H ALT Alkaline Phosphatase 135 H Total Creatine Kinase 4677 H CK-MB (CK-2) Troponin T C-Reactive Protein Total Protein 4.8 L Albumin 2.3 L Triglycerides 409 H LDL Cholesterol Direct HDL Cholesterol Free T4 PTH Intact Urine WBC (Auto) Urine Creatinine Salicylates Acetaminophen Crossmatch 03/27/19 03/27/19 03/27/19 12:37 14:15 14:15 WBC RBC Hgb 9.7 L Hct 29.5 L MCV MCHC RDW Plt Count 87 L Lymph % (Auto) Major % (Auto) Lymph # Major # Seg Neutrophils % Seg Neuts % (Manual) Lymphocytes % (Manual) Monocytes % (Manual) Nucleated RBC % Seg Neutrophils # Seg Neutrophils # Man Lymphocytes # (Manual) Monocytes # (Manual) PT 15.9 H INR 1.30 H D-Dimer Heparin Anti-Xa Level POC ABG pH ABG pH POC ABG pCO2 POC ABG pO2 ABG pO2 ABG HCO3 ABG O2 Saturation ABG Base Excess ABG Hemoglobin Oxyhemoglobin Sodium Potassium Chloride Carbon Dioxide BUN Creatinine Glucose POC Glucose 129 H Lactic Acid Calcium Ionized Calcium Phosphorus Magnesium Iron TIBC Ferritin Total Bilirubin Direct Bilirubin AST ALT Alkaline Phosphatase Total Creatine Kinase CK-MB (CK-2) Troponin T C-Reactive Protein Total Protein Albumin Triglycerides LDL Cholesterol Direct HDL Cholesterol Free T4 PTH Intact Urine WBC (Auto) Urine Creatinine Salicylates Acetaminophen Crossmatch 03/27/19 03/27/19 03/27/19 18:00 19:22 19:23 WBC RBC Hgb Hct MCV MCHC RDW Plt Count Lymph % (Auto) Major % (Auto) Lymph # Major # Seg Neutrophils % Seg Neuts % (Manual) Lymphocytes % (Manual) Monocytes % (Manual) Nucleated RBC % Seg Neutrophils # Seg Neutrophils # Man Lymphocytes # (Manual) Monocytes # (Manual) PT INR D-Dimer Heparin Anti-Xa Level < 0.10 L POC ABG pH ABG pH POC ABG pCO2 POC ABG pO2 ABG pO2 ABG HCO3 ABG O2 Saturation ABG Base Excess ABG Hemoglobin Oxyhemoglobin Sodium Potassium Chloride Carbon Dioxide BUN Creatinine Glucose POC Glucose 121 H Lactic Acid Calcium Ionized Calcium Phosphorus Magnesium Iron TIBC Ferritin Total Bilirubin Direct Bilirubin AST ALT Alkaline Phosphatase Total Creatine Kinase 4517 H CK-MB (CK-2) Troponin T C-Reactive Protein Total Protein Albumin Triglycerides LDL Cholesterol Direct HDL Cholesterol Free T4 PTH Intact Urine WBC (Auto) Urine Creatinine Salicylates Acetaminophen Crossmatch 03/27/19 03/27/19 03/28/19 22:10 23:52 03:49 WBC RBC Hgb Hct MCV MCHC RDW Plt Count Lymph % (Auto) Major % (Auto) Lymph # Major # Seg Neutrophils % Seg Neuts % (Manual) Lymphocytes % (Manual) Monocytes % (Manual) Nucleated RBC % Seg Neutrophils # Seg Neutrophils # Man Lymphocytes # (Manual) Monocytes # (Manual) PT INR D-Dimer Heparin Anti-Xa Level POC ABG pH 7.338 L ABG pH POC ABG pCO2 33.1 L POC ABG pO2 ABG pO2 ABG HCO3 ABG O2 Saturation ABG Base Excess ABG Hemoglobin Oxyhemoglobin Sodium Potassium Chloride Carbon Dioxide BUN Creatinine Glucose POC Glucose 113 H 117 H Lactic Acid Calcium Ionized Calcium Phosphorus Magnesium Iron TIBC Ferritin Total Bilirubin Direct Bilirubin AST ALT Alkaline Phosphatase Total Creatine Kinase CK-MB (CK-2) Troponin T C-Reactive Protein Total Protein Albumin Triglycerides LDL Cholesterol Direct HDL Cholesterol Free T4 PTH Intact Urine WBC (Auto) Urine Creatinine Salicylates Acetaminophen Crossmatch 03/28/19 03/28/19 03/28/19 05:13 05:13 06:18 WBC RBC Hgb Hct MCV MCHC RDW Plt Count Lymph % (Auto) Major % (Auto) Lymph # Major # Seg Neutrophils % Seg Neuts % (Manual) Lymphocytes % (Manual) Monocytes % (Manual) Nucleated RBC % Seg Neutrophils # Seg Neutrophils # Man Lymphocytes # (Manual) Monocytes # (Manual) PT INR D-Dimer Heparin Anti-Xa Level 0.23 L POC ABG pH ABG pH POC ABG pCO2 POC ABG pO2 ABG pO2 ABG HCO3 ABG O2 Saturation ABG Base Excess ABG Hemoglobin Oxyhemoglobin Sodium 135 L Potassium 5.5 H D Chloride 95.1 L Carbon Dioxide 16 L D BUN 129 H Creatinine 9.3 H Glucose 158 H POC Glucose 202 H Lactic Acid Calcium 4.0 L* D Ionized Calcium Phosphorus 12.40 H Magnesium Iron TIBC Ferritin Total Bilirubin Direct Bilirubin AST ALT Alkaline Phosphatase Total Creatine Kinase 4266 H CK-MB (CK-2) Troponin T C-Reactive Protein Total Protein Albumin Triglycerides LDL Cholesterol Direct HDL Cholesterol Free T4 PTH Intact Urine WBC (Auto) Urine Creatinine Salicylates Acetaminophen Crossmatch 03/28/19 03/28/19 03/28/19 08:25 10:00 12:00 WBC RBC Hgb 4.9 L* D Hct 15.4 L* D MCV MCHC RDW Plt Count Lymph % (Auto) Major % (Auto) Lymph # Major # Seg Neutrophils % Seg Neuts % (Manual) Lymphocytes % (Manual) Monocytes % (Manual) Nucleated RBC % Seg Neutrophils # Seg Neutrophils # Man Lymphocytes # (Manual) Monocytes # (Manual) PT 17.9 H INR 1.52 H D-Dimer 4845.98 H Heparin Anti-Xa Level POC ABG pH ABG pH POC ABG pCO2 POC ABG pO2 ABG pO2 ABG HCO3 ABG O2 Saturation ABG Base Excess ABG Hemoglobin Oxyhemoglobin Sodium Potassium Chloride Carbon Dioxide BUN Creatinine Glucose POC Glucose Lactic Acid Calcium Ionized Calcium Phosphorus Magnesium Iron TIBC Ferritin Total Bilirubin Direct Bilirubin AST ALT Alkaline Phosphatase Total Creatine Kinase CK-MB (CK-2) Troponin T C-Reactive Protein Total Protein Albumin Triglycerides LDL Cholesterol Direct HDL Cholesterol Free T4 PTH Intact Urine WBC (Auto) Urine Creatinine Salicylates Acetaminophen Crossmatch See Detail 03/28/19 03/28/19 03/28/19 12:28 14:10 17:43 WBC RBC Hgb 5.9 L* Hct 18.3 L* MCV MCHC RDW Plt Count Lymph % (Auto) Major % (Auto) Lymph # Major # Seg Neutrophils % Seg Neuts % (Manual) Lymphocytes % (Manual) Monocytes % (Manual) Nucleated RBC % Seg Neutrophils # Seg Neutrophils # Man Lymphocytes # (Manual) Monocytes # (Manual) PT INR D-Dimer Heparin Anti-Xa Level POC ABG pH ABG pH POC ABG pCO2 POC ABG pO2 ABG pO2 ABG HCO3 ABG O2 Saturation ABG Base Excess ABG Hemoglobin Oxyhemoglobin Sodium Potassium Chloride Carbon Dioxide BUN Creatinine Glucose POC Glucose 153 H 159 H Lactic Acid Calcium Ionized Calcium Phosphorus Magnesium Iron TIBC Ferritin Total Bilirubin Direct Bilirubin AST ALT Alkaline Phosphatase Total Creatine Kinase CK-MB (CK-2) Troponin T C-Reactive Protein Total Protein Albumin Triglycerides LDL Cholesterol Direct HDL Cholesterol Free T4 PTH Intact Urine WBC (Auto) Urine Creatinine Salicylates Acetaminophen Crossmatch 03/28/19 03/28/19 03/28/19 18:10 Unknown 23:59 WBC 24.8 H RBC 3.42 L Hgb 10.2 L D Hct 31.1 L D MCV MCHC RDW 15.4 H Plt Count 54 L Lymph % (Auto) Major % (Auto) Lymph # Major # Seg Neutrophils % Seg Neuts % (Manual) 91.0 H Lymphocytes % (Manual) 8.0 L Monocytes % (Manual) Nucleated RBC % Seg Neutrophils # Seg Neutrophils # Man 22.6 H Lymphocytes # (Manual) Monocytes # (Manual) PT INR D-Dimer Heparin Anti-Xa Level POC ABG pH ABG pH POC ABG pCO2 POC ABG pO2 ABG pO2 ABG HCO3 ABG O2 Saturation ABG Base Excess ABG Hemoglobin Oxyhemoglobin Sodium Potassium 5.7 H Chloride Carbon Dioxide BUN Creatinine Glucose POC Glucose 107 H Lactic Acid Calcium Ionized Calcium Phosphorus Magnesium Iron TIBC Ferritin Total Bilirubin Direct Bilirubin AST ALT Alkaline Phosphatase Total Creatine Kinase CK-MB (CK-2) Troponin T C-Reactive Protein Total Protein Albumin Triglycerides LDL Cholesterol Direct HDL Cholesterol Free T4 PTH Intact Urine WBC (Auto) Urine Creatinine Salicylates Acetaminophen Crossmatch 03/29/19 03/29/19 03/29/19 04:29 05:46 06:22 WBC RBC Hgb 8.6 L Hct 25.7 L MCV MCHC RDW Plt Count 93 L Lymph % (Auto) Major % (Auto) Lymph # Major # Seg Neutrophils % Seg Neuts % (Manual) Lymphocytes % (Manual) Monocytes % (Manual) Nucleated RBC % Seg Neutrophils # Seg Neutrophils # Man Lymphocytes # (Manual) Monocytes # (Manual) PT INR D-Dimer Heparin Anti-Xa Level POC ABG pH ABG pH POC ABG pCO2 32.2 L POC ABG pO2 ABG pO2 ABG HCO3 ABG O2 Saturation ABG Base Excess ABG Hemoglobin Oxyhemoglobin Sodium Potassium Chloride Carbon Dioxide BUN Creatinine Glucose POC Glucose 113 H Lactic Acid Calcium Ionized Calcium Phosphorus Magnesium Iron TIBC Ferritin Total Bilirubin Direct Bilirubin AST ALT Alkaline Phosphatase Total Creatine Kinase CK-MB (CK-2) Troponin T C-Reactive Protein Total Protein Albumin Triglycerides LDL Cholesterol Direct HDL Cholesterol Free T4 PTH Intact Urine WBC (Auto) Urine Creatinine Salicylates Acetaminophen Crossmatch 03/29/19 03/29/19 03/29/19 06:22 06:22 06:22 WBC 23.2 H RBC 2.91 L Hgb 8.6 L Hct 25.8 L MCV MCHC RDW Plt Count 91 L Lymph % (Auto) Major % (Auto) Lymph # Major # Seg Neutrophils % Seg Neuts % (Manual) Lymphocytes % (Manual) Monocytes % (Manual) Nucleated RBC % Seg Neutrophils # Seg Neutrophils # Man Lymphocytes # (Manual) Monocytes # (Manual) PT INR D-Dimer Heparin Anti-Xa Level POC ABG pH ABG pH POC ABG pCO2 POC ABG pO2 ABG pO2 ABG HCO3 ABG O2 Saturation ABG Base Excess ABG Hemoglobin Oxyhemoglobin Sodium 133 L Potassium Chloride 93.8 L Carbon Dioxide 18 L BUN 109 H Creatinine 7.4 H Glucose 124 H POC Glucose Lactic Acid Calcium 4.6 L* Ionized Calcium Phosphorus Magnesium Iron TIBC Ferritin Total Bilirubin Direct Bilirubin AST ALT Alkaline Phosphatase Total Creatine Kinase 3401 H CK-MB (CK-2) Troponin T C-Reactive Protein Total Protein Albumin Triglycerides 309 H LDL Cholesterol Direct HDL Cholesterol Free T4 PTH Intact Urine WBC (Auto) Urine Creatinine Salicylates Acetaminophen Crossmatch 03/29/19 03/29/19 03/29/19 11:48 11:48 18:24 WBC RBC Hgb 7.8 L Hct 23.2 L MCV MCHC RDW Plt Count Lymph % (Auto) Major % (Auto) Lymph # Major # Seg Neutrophils % Seg Neuts % (Manual) Lymphocytes % (Manual) Monocytes % (Manual) Nucleated RBC % Seg Neutrophils # Seg Neutrophils # Man Lymphocytes # (Manual) Monocytes # (Manual) PT 15.3 H INR 1.24 H D-Dimer Heparin Anti-Xa Level POC ABG pH ABG pH POC ABG pCO2 POC ABG pO2 ABG pO2 ABG HCO3 ABG O2 Saturation ABG Base Excess ABG Hemoglobin Oxyhemoglobin Sodium Potassium Chloride Carbon Dioxide BUN Creatinine Glucose POC Glucose 122 H Lactic Acid Calcium Ionized Calcium Phosphorus Magnesium Iron TIBC Ferritin Total Bilirubin Direct Bilirubin AST ALT Alkaline Phosphatase Total Creatine Kinase CK-MB (CK-2) Troponin T C-Reactive Protein Total Protein Albumin Triglycerides LDL Cholesterol Direct HDL Cholesterol Free T4 PTH Intact Urine WBC (Auto) Urine Creatinine Salicylates Acetaminophen Crossmatch 03/30/19 03/30/19 03/30/19 00:40 04:31 05:04 WBC RBC Hgb 7.6 L Hct 23.0 L MCV MCHC RDW Plt Count Lymph % (Auto) Major % (Auto) Lymph # Major # Seg Neutrophils % Seg Neuts % (Manual) Lymphocytes % (Manual) Monocytes % (Manual) Nucleated RBC % Seg Neutrophils # Seg Neutrophils # Man Lymphocytes # (Manual) Monocytes # (Manual) PT INR D-Dimer Heparin Anti-Xa Level POC ABG pH 7.346 L ABG pH POC ABG pCO2 POC ABG pO2 62 L ABG pO2 ABG HCO3 ABG O2 Saturation ABG Base Excess ABG Hemoglobin Oxyhemoglobin Sodium Potassium Chloride Carbon Dioxide BUN 79 H Creatinine 6.4 H Glucose POC Glucose Lactic Acid Calcium 6.1 L D Ionized Calcium Phosphorus Magnesium Iron TIBC Ferritin Total Bilirubin Direct Bilirubin AST ALT Alkaline Phosphatase Total Creatine Kinase CK-MB (CK-2) Troponin T C-Reactive Protein Total Protein Albumin Triglycerides LDL Cholesterol Direct HDL Cholesterol Free T4 PTH Intact Urine WBC (Auto) Urine Creatinine Salicylates Acetaminophen Crossmatch 03/30/19 03/30/19 03/30/19 08:45 12:09 22:43 WBC 14.3 H RBC 2.33 L Hgb 7.0 L 7.4 L Hct 21.0 L 22.3 L MCV MCHC RDW 15.6 H Plt Count 135 L Lymph % (Auto) Major % (Auto) Lymph # Major # Seg Neutrophils % Seg Neuts % (Manual) Lymphocytes % (Manual) Monocytes % (Manual) Nucleated RBC % Seg Neutrophils # Seg Neutrophils # Man Lymphocytes # (Manual) Monocytes # (Manual) PT INR D-Dimer Heparin Anti-Xa Level POC ABG pH ABG pH POC ABG pCO2 POC ABG pO2 ABG pO2 ABG HCO3 ABG O2 Saturation ABG Base Excess ABG Hemoglobin Oxyhemoglobin Sodium Potassium Chloride Carbon Dioxide BUN Creatinine Glucose POC Glucose Lactic Acid Calcium Ionized Calcium 3.7 L Phosphorus Magnesium Iron TIBC Ferritin Total Bilirubin Direct Bilirubin AST ALT Alkaline Phosphatase Total Creatine Kinase CK-MB (CK-2) Troponin T C-Reactive Protein Total Protein Albumin Triglycerides LDL Cholesterol Direct HDL Cholesterol Free T4 PTH Intact Urine WBC (Auto) Urine Creatinine Salicylates Acetaminophen Crossmatch 03/30/19 03/30/19 03/31/19 23:38 Unknown 04:44 WBC 11.5 H RBC 2.40 L Hgb 7.3 L Hct 21.9 L MCV MCHC RDW 15.4 H Plt Count Lymph % (Auto) 10.6 L Major % (Auto) Lymph # Major # Seg Neutrophils % 81.7 H Seg Neuts % (Manual) Lymphocytes % (Manual) Monocytes % (Manual) Nucleated RBC % Seg Neutrophils # 9.4 H Seg Neutrophils # Man Lymphocytes # (Manual) Monocytes # (Manual) PT INR D-Dimer Heparin Anti-Xa Level POC ABG pH ABG pH POC ABG pCO2 POC ABG pO2 ABG pO2 ABG HCO3 ABG O2 Saturation ABG Base Excess ABG Hemoglobin Oxyhemoglobin Sodium Potassium Chloride Carbon Dioxide BUN Creatinine Glucose POC Glucose 155 H Lactic Acid Calcium Ionized Calcium Phosphorus Magnesium Iron TIBC Ferritin Total Bilirubin Direct Bilirubin 0.4 H AST 63 H ALT Alkaline Phosphatase Total Creatine Kinase CK-MB (CK-2) Troponin T C-Reactive Protein Total Protein 4.9 L Albumin 2.2 L Triglycerides LDL Cholesterol Direct HDL Cholesterol Free T4 PTH Intact Urine WBC (Auto) Urine Creatinine Salicylates Acetaminophen Crossmatch 03/31/19 03/31/19 03/31/19 04:44 05:44 08:20 WBC RBC Hgb Hct MCV MCHC RDW Plt Count Lymph % (Auto) Major % (Auto) Lymph # Major # Seg Neutrophils % Seg Neuts % (Manual) Lymphocytes % (Manual) Monocytes % (Manual) Nucleated RBC % Seg Neutrophils # Seg Neutrophils # Man Lymphocytes # (Manual) Monocytes # (Manual) PT INR D-Dimer Heparin Anti-Xa Level POC ABG pH ABG pH POC ABG pCO2 53.5 H POC ABG pO2 62 L ABG pO2 ABG HCO3 ABG O2 Saturation ABG Base Excess ABG Hemoglobin Oxyhemoglobin Sodium 135 L Potassium Chloride 96.7 L Carbon Dioxide 19 L BUN 94 H Creatinine 7.8 H Glucose POC Glucose Lactic Acid Calcium 5.3 L* Ionized Calcium Phosphorus 8.20 H Magnesium Iron TIBC Ferritin Total Bilirubin Direct Bilirubin 0.4 H AST 60 H ALT Alkaline Phosphatase Total Creatine Kinase CK-MB (CK-2) Troponin T C-Reactive Protein Total Protein 4.8 L Albumin 2.1 L Triglycerides LDL Cholesterol Direct HDL Cholesterol Free T4 PTH Intact Urine WBC (Auto) Urine Creatinine Salicylates Acetaminophen Crossmatch 03/31/19 04/01/19 04/01/19 22:14 04:27 04:27 WBC RBC 2.60 L Hgb 8.0 L Hct 24.1 L MCV MCHC RDW 15.7 H Plt Count Lymph % (Auto) 7.9 L Major % (Auto) Lymph # 0.7 L Major # Seg Neutrophils % 83.6 H Seg Neuts % (Manual) Lymphocytes % (Manual) Monocytes % (Manual) Nucleated RBC % Seg Neutrophils # Seg Neutrophils # Man Lymphocytes # (Manual) Monocytes # (Manual) PT INR D-Dimer Heparin Anti-Xa Level POC ABG pH 7.286 L ABG pH POC ABG pCO2 54.7 H POC ABG pO2 179 H ABG pO2 ABG HCO3 ABG O2 Saturation ABG Base Excess ABG Hemoglobin Oxyhemoglobin Sodium Potassium Chloride Carbon Dioxide BUN 68 H Creatinine 6.6 H Glucose POC Glucose Lactic Acid Calcium 6.5 L D Ionized Calcium Phosphorus 7.30 H Magnesium Iron TIBC Ferritin Total Bilirubin Direct Bilirubin AST ALT Alkaline Phosphatase Total Creatine Kinase 1652 H CK-MB (CK-2) Troponin T C-Reactive Protein Total Protein Albumin Triglycerides LDL Cholesterol Direct HDL Cholesterol Free T4 PTH Intact Urine WBC (Auto) Urine Creatinine Salicylates Acetaminophen Crossmatch 04/01/19 04/01/19 04/01/19 05:14 05:37 18:37 WBC RBC Hgb Hct MCV MCHC RDW Plt Count Lymph % (Auto) Major % (Auto) Lymph # Major # Seg Neutrophils % Seg Neuts % (Manual) Lymphocytes % (Manual) Monocytes % (Manual) Nucleated RBC % Seg Neutrophils # Seg Neutrophils # Man Lymphocytes # (Manual) Monocytes # (Manual) PT INR D-Dimer Heparin Anti-Xa Level POC ABG pH 7.283 L ABG pH POC ABG pCO2 53.4 H POC ABG pO2 241 H ABG pO2 ABG HCO3 ABG O2 Saturation ABG Base Excess ABG Hemoglobin Oxyhemoglobin Sodium Potassium Chloride Carbon Dioxide BUN Creatinine Glucose POC Glucose 111 H 119 H Lactic Acid Calcium Ionized Calcium Phosphorus Magnesium Iron TIBC Ferritin Total Bilirubin Direct Bilirubin AST ALT Alkaline Phosphatase Total Creatine Kinase CK-MB (CK-2) Troponin T C-Reactive Protein Total Protein Albumin Triglycerides LDL Cholesterol Direct HDL Cholesterol Free T4 PTH Intact Urine WBC (Auto) Urine Creatinine Salicylates Acetaminophen Crossmatch 04/01/19 04/02/19 04/02/19 21:28 04:40 05:03 WBC RBC 2.36 L Hgb 7.2 L Hct 21.9 L MCV MCHC RDW 16.0 H Plt Count Lymph % (Auto) 10.8 L Major % (Auto) Lymph # 0.8 L Major # Seg Neutrophils % 80.3 H Seg Neuts % (Manual) Lymphocytes % (Manual) Monocytes % (Manual) Nucleated RBC % Seg Neutrophils # Seg Neutrophils # Man Lymphocytes # (Manual) Monocytes # (Manual) PT INR D-Dimer Heparin Anti-Xa Level POC ABG pH 7.299 L 7.300 L ABG pH POC ABG pCO2 48.2 H 45.2 H POC ABG pO2 133 H 107 H ABG pO2 ABG HCO3 ABG O2 Saturation ABG Base Excess ABG Hemoglobin Oxyhemoglobin Sodium Potassium Chloride Carbon Dioxide BUN Creatinine Glucose POC Glucose Lactic Acid Calcium Ionized Calcium Phosphorus Magnesium Iron TIBC Ferritin Total Bilirubin Direct Bilirubin AST ALT Alkaline Phosphatase Total Creatine Kinase CK-MB (CK-2) Troponin T C-Reactive Protein Total Protein Albumin Triglycerides LDL Cholesterol Direct HDL Cholesterol Free T4 PTH Intact Urine WBC (Auto) Urine Creatinine Salicylates Acetaminophen Crossmatch 04/02/19 04/02/19 04/02/19 05:03 05:03 12:15 WBC RBC Hgb 7.4 L Hct 22.6 L MCV MCHC RDW Plt Count Lymph % (Auto) Major % (Auto) Lymph # Major # Seg Neutrophils % Seg Neuts % (Manual) Lymphocytes % (Manual) Monocytes % (Manual) Nucleated RBC % Seg Neutrophils # Seg Neutrophils # Man Lymphocytes # (Manual) Monocytes # (Manual) PT INR D-Dimer Heparin Anti-Xa Level POC ABG pH ABG pH POC ABG pCO2 POC ABG pO2 ABG pO2 ABG HCO3 ABG O2 Saturation ABG Base Excess ABG Hemoglobin Oxyhemoglobin Sodium 136 L Potassium Chloride 97.8 L Carbon Dioxide 18 L BUN 82 H Creatinine 8.2 H Glucose POC Glucose Lactic Acid Calcium 6.7 L Ionized Calcium Phosphorus 7.50 H Magnesium Iron 26 L TIBC 138 L Ferritin 607.0 H Total Bilirubin Direct Bilirubin AST ALT Alkaline Phosphatase Total Creatine Kinase CK-MB (CK-2) Troponin T C-Reactive Protein Total Protein Albumin Triglycerides LDL Cholesterol Direct HDL Cholesterol Free T4 PTH Intact Urine WBC (Auto) Urine Creatinine Salicylates Acetaminophen Crossmatch 04/02/19 04/02/19 04/03/19 16:34 17:14 04:18 WBC RBC Hgb Hct MCV MCHC RDW Plt Count Lymph % (Auto) Major % (Auto) Lymph # Major # Seg Neutrophils % Seg Neuts % (Manual) Lymphocytes % (Manual) Monocytes % (Manual) Nucleated RBC % Seg Neutrophils # Seg Neutrophils # Man Lymphocytes # (Manual) Monocytes # (Manual) PT INR D-Dimer Heparin Anti-Xa Level POC ABG pH ABG pH POC ABG pCO2 POC ABG pO2 146 H ABG pO2 ABG HCO3 ABG O2 Saturation ABG Base Excess ABG Hemoglobin Oxyhemoglobin Sodium Potassium Chloride Carbon Dioxide BUN Creatinine Glucose POC Glucose 108 H Lactic Acid Calcium Ionized Calcium Phosphorus Magnesium Iron TIBC Ferritin Total Bilirubin Direct Bilirubin AST ALT Alkaline Phosphatase Total Creatine Kinase CK-MB (CK-2) Troponin T C-Reactive Protein Total Protein Albumin Triglycerides LDL Cholesterol Direct HDL Cholesterol Free T4 PTH Intact Urine WBC (Auto) Urine Creatinine Salicylates Acetaminophen Crossmatch See Detail 04/03/19 04/03/19 04/03/19 04:25 08:30 18:24 WBC RBC 2.40 L Hgb 7.3 L Hct 21.9 L MCV MCHC RDW Plt Count Lymph % (Auto) Major % (Auto) 7.7 H Lymph # 0.9 L Major # Seg Neutrophils % 74.6 H Seg Neuts % (Manual) Lymphocytes % (Manual) Monocytes % (Manual) Nucleated RBC % Seg Neutrophils # Seg Neutrophils # Man Lymphocytes # (Manual) Monocytes # (Manual) PT INR D-Dimer Heparin Anti-Xa Level POC ABG pH ABG pH POC ABG pCO2 POC ABG pO2 ABG pO2 ABG HCO3 ABG O2 Saturation ABG Base Excess ABG Hemoglobin Oxyhemoglobin Sodium 136 L Potassium Chloride 97.0 L Carbon Dioxide BUN 58 H Creatinine 7.3 H Glucose POC Glucose 106 H Lactic Acid Calcium 7.5 L Ionized Calcium Phosphorus 5.80 H D Magnesium Iron TIBC Ferritin Total Bilirubin Direct Bilirubin AST ALT Alkaline Phosphatase Total Creatine Kinase CK-MB (CK-2) Troponin T C-Reactive Protein Total Protein Albumin Triglycerides LDL Cholesterol Direct HDL Cholesterol Free T4 PTH Intact Urine WBC (Auto) Urine Creatinine Salicylates Acetaminophen Crossmatch 04/03/19 04/04/19 04/04/19 23:43 04:47 04:47 WBC RBC 2.72 L Hgb 8.3 L Hct 24.7 L MCV MCHC RDW 15.6 H Plt Count Lymph % (Auto) Major % (Auto) 10.1 H Lymph # 0.8 L Major # Seg Neutrophils % 71.4 H Seg Neuts % (Manual) Lymphocytes % (Manual) Monocytes % (Manual) Nucleated RBC % Seg Neutrophils # Seg Neutrophils # Man Lymphocytes # (Manual) Monocytes # (Manual) PT INR D-Dimer Heparin Anti-Xa Level POC ABG pH ABG pH POC ABG pCO2 POC ABG pO2 ABG pO2 123.8 H ABG HCO3 ABG O2 Saturation ABG Base Excess -3.0 L ABG Hemoglobin 7.9 L Oxyhemoglobin Sodium 134 L Potassium Chloride 97.9 L Carbon Dioxide BUN 64 H Creatinine 8.1 H Glucose POC Glucose Lactic Acid Calcium 7.2 L Ionized Calcium Phosphorus Magnesium Iron TIBC Ferritin Total Bilirubin Direct Bilirubin AST ALT Alkaline Phosphatase Total Creatine Kinase CK-MB (CK-2) Troponin T C-Reactive Protein Total Protein Albumin Triglycerides LDL Cholesterol Direct HDL Cholesterol Free T4 PTH Intact Urine WBC (Auto) Urine Creatinine Salicylates Acetaminophen Crossmatch 04/04/19 04/04/19 04/04/19 06:07 13:40 18:18 WBC RBC Hgb Hct MCV MCHC RDW Plt Count Lymph % (Auto) Major % (Auto) Lymph # Major # Seg Neutrophils % Seg Neuts % (Manual) Lymphocytes % (Manual) Monocytes % (Manual) Nucleated RBC % Seg Neutrophils # Seg Neutrophils # Man Lymphocytes # (Manual) Monocytes # (Manual) PT INR D-Dimer Heparin Anti-Xa Level POC ABG pH ABG pH POC ABG pCO2 POC ABG pO2 ABG pO2 95.9 H ABG HCO3 ABG O2 Saturation ABG Base Excess -3.0 L ABG Hemoglobin 8.5 L Oxyhemoglobin Sodium Potassium Chloride Carbon Dioxide BUN Creatinine Glucose POC Glucose 107 H 107 H Lactic Acid Calcium Ionized Calcium Phosphorus Magnesium Iron TIBC Ferritin Total Bilirubin Direct Bilirubin AST ALT Alkaline Phosphatase Total Creatine Kinase CK-MB (CK-2) Troponin T C-Reactive Protein Total Protein Albumin Triglycerides LDL Cholesterol Direct HDL Cholesterol Free T4 PTH Intact Urine WBC (Auto) Urine Creatinine Salicylates Acetaminophen Crossmatch 04/04/19 04/05/19 04/05/19 21:22 04:09 04:09 WBC RBC 2.76 L Hgb 8.4 L Hct 25.4 L MCV MCHC RDW 15.8 H Plt Count 133 L Lymph % (Auto) Major % (Auto) 9.6 H Lymph # 0.7 L Major # Seg Neutrophils % 72.6 H Seg Neuts % (Manual) Lymphocytes % (Manual) Monocytes % (Manual) Nucleated RBC % Seg Neutrophils # Seg Neutrophils # Man Lymphocytes # (Manual) Monocytes # (Manual) PT INR D-Dimer Heparin Anti-Xa Level POC ABG pH ABG pH POC ABG pCO2 47.2 H POC ABG pO2 137 H ABG pO2 ABG HCO3 ABG O2 Saturation ABG Base Excess ABG Hemoglobin Oxyhemoglobin Sodium 136 L Potassium Chloride Carbon Dioxide BUN 46 H Creatinine 6.7 H Glucose POC Glucose Lactic Acid Calcium 7.7 L Ionized Calcium Phosphorus Magnesium Iron TIBC Ferritin Total Bilirubin Direct Bilirubin AST ALT Alkaline Phosphatase Total Creatine Kinase CK-MB (CK-2) Troponin T C-Reactive Protein Total Protein Albumin Triglycerides LDL Cholesterol Direct HDL Cholesterol Free T4 PTH Intact Urine WBC (Auto) Urine Creatinine Salicylates Acetaminophen Crossmatch 04/05/19 04/05/19 04/05/19 05:28 06:14 16:50 WBC RBC Hgb Hct MCV MCHC RDW Plt Count Lymph % (Auto) Major % (Auto) Lymph # Major # Seg Neutrophils % Seg Neuts % (Manual) Lymphocytes % (Manual) Monocytes % (Manual) Nucleated RBC % Seg Neutrophils # Seg Neutrophils # Man Lymphocytes # (Manual) Monocytes # (Manual) PT INR D-Dimer Heparin Anti-Xa Level POC ABG pH ABG pH POC ABG pCO2 POC ABG pO2 67 L ABG pO2 ABG HCO3 ABG O2 Saturation ABG Base Excess ABG Hemoglobin Oxyhemoglobin Sodium Potassium Chloride Carbon Dioxide BUN Creatinine Glucose POC Glucose 108 H Lactic Acid Calcium Ionized Calcium Phosphorus Magnesium Iron TIBC Ferritin Total Bilirubin Direct Bilirubin AST ALT Alkaline Phosphatase Total Creatine Kinase CK-MB (CK-2) Troponin T C-Reactive Protein Total Protein Albumin Triglycerides LDL Cholesterol Direct HDL Cholesterol Free T4 PTH Intact Urine WBC (Auto) 40.0 H Urine Creatinine Salicylates Acetaminophen Crossmatch 04/05/19 04/06/19 04/06/19 17:22 00:13 04:44 WBC RBC 2.48 L Hgb 7.5 L Hct 22.9 L MCV MCHC RDW 16.0 H Plt Count 107 L Lymph % (Auto) Major % (Auto) 10.7 H Lymph # 1.0 L Major # Seg Neutrophils % Seg Neuts % (Manual) Lymphocytes % (Manual) Monocytes % (Manual) Nucleated RBC % Seg Neutrophils # Seg Neutrophils # Man Lymphocytes # (Manual) Monocytes # (Manual) PT INR D-Dimer Heparin Anti-Xa Level POC ABG pH ABG pH POC ABG pCO2 POC ABG pO2 ABG pO2 ABG HCO3 ABG O2 Saturation ABG Base Excess ABG Hemoglobin Oxyhemoglobin Sodium Potassium Chloride Carbon Dioxide BUN Creatinine Glucose POC Glucose 118 H 138 H Lactic Acid Calcium Ionized Calcium Phosphorus Magnesium Iron TIBC Ferritin Total Bilirubin Direct Bilirubin AST ALT Alkaline Phosphatase Total Creatine Kinase CK-MB (CK-2) Troponin T C-Reactive Protein Total Protein Albumin Triglycerides LDL Cholesterol Direct HDL Cholesterol Free T4 PTH Intact Urine WBC (Auto) Urine Creatinine Salicylates Acetaminophen Crossmatch 04/06/19 04/06/19 04/06/19 04:44 05:20 05:23 WBC RBC Hgb Hct MCV MCHC RDW Plt Count Lymph % (Auto) Major % (Auto) Lymph # Major # Seg Neutrophils % Seg Neuts % (Manual) Lymphocytes % (Manual) Monocytes % (Manual) Nucleated RBC % Seg Neutrophils # Seg Neutrophils # Man Lymphocytes # (Manual) Monocytes # (Manual) PT INR D-Dimer Heparin Anti-Xa Level POC ABG pH ABG pH POC ABG pCO2 POC ABG pO2 ABG pO2 104.0 H ABG HCO3 ABG O2 Saturation ABG Base Excess -2.1 L ABG Hemoglobin 7.3 L Oxyhemoglobin Sodium Potassium Chloride Carbon Dioxide BUN 64 H Creatinine 8.2 H Glucose 103 H POC Glucose 118 H Lactic Acid Calcium 7.3 L Ionized Calcium Phosphorus Magnesium Iron TIBC Ferritin Total Bilirubin Direct Bilirubin AST ALT Alkaline Phosphatase Total Creatine Kinase CK-MB (CK-2) Troponin T C-Reactive Protein Total Protein Albumin Triglycerides LDL Cholesterol Direct HDL Cholesterol Free T4 PTH Intact Urine WBC (Auto) Urine Creatinine Salicylates Acetaminophen Crossmatch 04/06/19 04/07/19 04/07/19 12:02 05:40 05:40 WBC RBC 2.59 L Hgb 7.9 L Hct 23.8 L MCV MCHC RDW 15.8 H Plt Count 89 L Lymph % (Auto) Major % (Auto) 10.3 H Lymph # 1.1 L Major # Seg Neutrophils % Seg Neuts % (Manual) Lymphocytes % (Manual) Monocytes % (Manual) Nucleated RBC % Seg Neutrophils # Seg Neutrophils # Man Lymphocytes # (Manual) Monocytes # (Manual) PT INR D-Dimer Heparin Anti-Xa Level POC ABG pH ABG pH POC ABG pCO2 POC ABG pO2 ABG pO2 ABG HCO3 ABG O2 Saturation ABG Base Excess ABG Hemoglobin Oxyhemoglobin Sodium 136 L Potassium 3.5 L Chloride Carbon Dioxide BUN 46 H Creatinine 6.2 H Glucose POC Glucose 108 H Lactic Acid Calcium 7.9 L Ionized Calcium Phosphorus Magnesium Iron TIBC Ferritin Total Bilirubin Direct Bilirubin AST ALT Alkaline Phosphatase Total Creatine Kinase CK-MB (CK-2) Troponin T C-Reactive Protein Total Protein Albumin Triglycerides LDL Cholesterol Direct HDL Cholesterol Free T4 PTH Intact Urine WBC (Auto) Urine Creatinine Salicylates Acetaminophen Crossmatch 04/07/19 04/09/19 04/09/19 12:57 04:28 04:28 WBC RBC 2.85 L Hgb 8.7 L Hct 26.2 L MCV MCHC RDW 15.6 H Plt Count Lymph % (Auto) Major % (Auto) 10.4 H Lymph # 1.0 L Major # Seg Neutrophils % 73.3 H Seg Neuts % (Manual) Lymphocytes % (Manual) Monocytes % (Manual) Nucleated RBC % Seg Neutrophils # Seg Neutrophils # Man Lymphocytes # (Manual) Monocytes # (Manual) PT INR D-Dimer Heparin Anti-Xa Level POC ABG pH ABG pH POC ABG pCO2 POC ABG pO2 107 H ABG pO2 ABG HCO3 ABG O2 Saturation ABG Base Excess ABG Hemoglobin Oxyhemoglobin Sodium Potassium 3.5 L Chloride 97.8 L Carbon Dioxide BUN 62 H Creatinine 8.1 H Glucose POC Glucose Lactic Acid Calcium 8.2 L Ionized Calcium Phosphorus 5.10 H Magnesium Iron TIBC Ferritin Total Bilirubin Direct Bilirubin AST ALT Alkaline Phosphatase Total Creatine Kinase CK-MB (CK-2) Troponin T C-Reactive Protein Total Protein Albumin Triglycerides LDL Cholesterol Direct HDL Cholesterol Free T4 PTH Intact Urine WBC (Auto) Urine Creatinine Salicylates Acetaminophen Crossmatch 04/10/19 04/11/19 04/11/19 18:15 00:25 04:16 WBC 11.5 H RBC 2.91 L Hgb 8.9 L Hct 27.6 L MCV 95 H MCHC RDW 17.5 H Plt Count Lymph % (Auto) Major % (Auto) Lymph # Major # Seg Neutrophils % Seg Neuts % (Manual) 71.0 H Lymphocytes % (Manual) Monocytes % (Manual) 8.0 H Nucleated RBC % Seg Neutrophils # Seg Neutrophils # Man 8.2 H Lymphocytes # (Manual) Monocytes # (Manual) 0.9 H PT INR D-Dimer Heparin Anti-Xa Level POC ABG pH ABG pH POC ABG pCO2 POC ABG pO2 ABG pO2 ABG HCO3 ABG O2 Saturation ABG Base Excess ABG Hemoglobin Oxyhemoglobin Sodium Potassium Chloride Carbon Dioxide BUN Creatinine Glucose POC Glucose 109 H 114 H Lactic Acid Calcium Ionized Calcium Phosphorus Magnesium Iron TIBC Ferritin Total Bilirubin Direct Bilirubin AST ALT Alkaline Phosphatase Total Creatine Kinase CK-MB (CK-2) Troponin T C-Reactive Protein Total Protein Albumin Triglycerides LDL Cholesterol Direct HDL Cholesterol Free T4 PTH Intact Urine WBC (Auto) Urine Creatinine Salicylates Acetaminophen Crossmatch 04/11/19 04/11/19 04/11/19 06:47 09:21 12:15 WBC RBC Hgb Hct MCV MCHC RDW Plt Count Lymph % (Auto) Major % (Auto) Lymph # Major # Seg Neutrophils % Seg Neuts % (Manual) Lymphocytes % (Manual) Monocytes % (Manual) Nucleated RBC % Seg Neutrophils # Seg Neutrophils # Man Lymphocytes # (Manual) Monocytes # (Manual) PT INR D-Dimer Heparin Anti-Xa Level POC ABG pH ABG pH POC ABG pCO2 POC ABG pO2 ABG pO2 ABG HCO3 ABG O2 Saturation ABG Base Excess ABG Hemoglobin Oxyhemoglobin Sodium Potassium 3.5 L Chloride Carbon Dioxide BUN 45 H Creatinine 6.0 H Glucose 113 H POC Glucose 106 H 109 H Lactic Acid Calcium Ionized Calcium Phosphorus Magnesium Iron TIBC Ferritin Total Bilirubin Direct Bilirubin AST ALT Alkaline Phosphatase Total Creatine Kinase CK-MB (CK-2) Troponin T C-Reactive Protein Total Protein Albumin Triglycerides LDL Cholesterol Direct HDL Cholesterol Free T4 PTH Intact Urine WBC (Auto) Urine Creatinine Salicylates Acetaminophen Crossmatch 04/11/19 04/12/19 04/12/19 18:42 12:13 23:52 WBC RBC Hgb Hct MCV MCHC RDW Plt Count Lymph % (Auto) Major % (Auto) Lymph # Major # Seg Neutrophils % Seg Neuts % (Manual) Lymphocytes % (Manual) Monocytes % (Manual) Nucleated RBC % Seg Neutrophils # Seg Neutrophils # Man Lymphocytes # (Manual) Monocytes # (Manual) PT INR D-Dimer Heparin Anti-Xa Level POC ABG pH ABG pH POC ABG pCO2 POC ABG pO2 ABG pO2 ABG HCO3 ABG O2 Saturation ABG Base Excess ABG Hemoglobin Oxyhemoglobin Sodium Potassium Chloride Carbon Dioxide BUN Creatinine Glucose POC Glucose 107 H 115 H 124 H Lactic Acid Calcium Ionized Calcium Phosphorus Magnesium Iron TIBC Ferritin Total Bilirubin Direct Bilirubin AST ALT Alkaline Phosphatase Total Creatine Kinase CK-MB (CK-2) Troponin T C-Reactive Protein Total Protein Albumin Triglycerides LDL Cholesterol Direct HDL Cholesterol Free T4 PTH Intact Urine WBC (Auto) Urine Creatinine Salicylates Acetaminophen Crossmatch 04/13/19 04/13/19 04/13/19 05:00 05:00 05:47 WBC 11.7 H RBC 2.97 L Hgb 8.8 L Hct 27.3 L MCV MCHC RDW 16.1 H Plt Count Lymph % (Auto) 9.5 L Major % (Auto) 9.9 H Lymph # 1.1 L Major # 1.2 H Seg Neutrophils % 78.6 H Seg Neuts % (Manual) Lymphocytes % (Manual) Monocytes % (Manual) Nucleated RBC % Seg Neutrophils # 9.2 H Seg Neutrophils # Man Lymphocytes # (Manual) Monocytes # (Manual) PT INR D-Dimer Heparin Anti-Xa Level POC ABG pH ABG pH POC ABG pCO2 POC ABG pO2 ABG pO2 ABG HCO3 ABG O2 Saturation ABG Base Excess ABG Hemoglobin Oxyhemoglobin Sodium Potassium 3.5 L Chloride Carbon Dioxide BUN 42 H Creatinine 4.6 H Glucose 106 H POC Glucose 107 H Lactic Acid Calcium 10.6 H D Ionized Calcium Phosphorus 5.90 H Magnesium Iron TIBC Ferritin Total Bilirubin Direct Bilirubin AST ALT Alkaline Phosphatase Total Creatine Kinase CK-MB (CK-2) Troponin T C-Reactive Protein Total Protein 5.8 L Albumin 2.5 L Triglycerides LDL Cholesterol Direct HDL Cholesterol Free T4 PTH Intact Urine WBC (Auto) Urine Creatinine Salicylates Acetaminophen Crossmatch 04/13/19 04/14/19 04/14/19 17:32 00:00 03:55 WBC RBC Hgb Hct MCV MCHC RDW Plt Count Lymph % (Auto) Major % (Auto) Lymph # Major # Seg Neutrophils % Seg Neuts % (Manual) Lymphocytes % (Manual) Monocytes % (Manual) Nucleated RBC % Seg Neutrophils # Seg Neutrophils # Man Lymphocytes # (Manual) Monocytes # (Manual) PT INR D-Dimer Heparin Anti-Xa Level POC ABG pH ABG pH POC ABG pCO2 POC ABG pO2 ABG pO2 ABG HCO3 ABG O2 Saturation ABG Base Excess ABG Hemoglobin Oxyhemoglobin Sodium Potassium 3.0 L Chloride Carbon Dioxide BUN 30 H Creatinine 3.1 H Glucose POC Glucose 112 H 120 H Lactic Acid Calcium 10.8 H Ionized Calcium Phosphorus Magnesium Iron TIBC Ferritin Total Bilirubin Direct Bilirubin AST ALT Alkaline Phosphatase Total Creatine Kinase CK-MB (CK-2) Troponin T C-Reactive Protein Total Protein Albumin Triglycerides LDL Cholesterol Direct HDL Cholesterol Free T4 PTH Intact Urine WBC (Auto) Urine Creatinine Salicylates Acetaminophen Crossmatch 04/14/19 04/14/19 04/15/19 11:56 23:28 05:11 WBC 13.0 H RBC 2.93 L Hgb 8.6 L Hct 26.5 L MCV MCHC RDW 16.5 H Plt Count Lymph % (Auto) 12.2 L Major % (Auto) 9.1 H Lymph # Major # 1.2 H Seg Neutrophils % 77.6 H Seg Neuts % (Manual) Lymphocytes % (Manual) Monocytes % (Manual) Nucleated RBC % Seg Neutrophils # 10.1 H Seg Neutrophils # Man Lymphocytes # (Manual) Monocytes # (Manual) PT INR D-Dimer Heparin Anti-Xa Level POC ABG pH ABG pH POC ABG pCO2 POC ABG pO2 ABG pO2 ABG HCO3 ABG O2 Saturation ABG Base Excess ABG Hemoglobin Oxyhemoglobin Sodium Potassium Chloride Carbon Dioxide BUN Creatinine Glucose POC Glucose 109 H 112 H Lactic Acid Calcium Ionized Calcium Phosphorus Magnesium Iron TIBC Ferritin Total Bilirubin Direct Bilirubin AST ALT Alkaline Phosphatase Total Creatine Kinase CK-MB (CK-2) Troponin T C-Reactive Protein Total Protein Albumin Triglycerides LDL Cholesterol Direct HDL Cholesterol Free T4 PTH Intact Urine WBC (Auto) Urine Creatinine Salicylates Acetaminophen Crossmatch 04/15/19 04/15/19 04/15/19 05:11 05:31 18:03 WBC RBC Hgb Hct MCV MCHC RDW Plt Count Lymph % (Auto) Major % (Auto) Lymph # Major # Seg Neutrophils % Seg Neuts % (Manual) Lymphocytes % (Manual) Monocytes % (Manual) Nucleated RBC % Seg Neutrophils # Seg Neutrophils # Man Lymphocytes # (Manual) Monocytes # (Manual) PT INR D-Dimer Heparin Anti-Xa Level POC ABG pH ABG pH POC ABG pCO2 POC ABG pO2 ABG pO2 ABG HCO3 ABG O2 Saturation ABG Base Excess ABG Hemoglobin Oxyhemoglobin Sodium Potassium 3.2 L Chloride Carbon Dioxide BUN 44 H Creatinine 3.6 H Glucose 106 H POC Glucose 110 H 121 H Lactic Acid Calcium 12.0 H Ionized Calcium Phosphorus 5.00 H Magnesium Iron TIBC Ferritin Total Bilirubin Direct Bilirubin AST ALT Alkaline Phosphatase Total Creatine Kinase CK-MB (CK-2) Troponin T C-Reactive Protein Total Protein Albumin Triglycerides LDL Cholesterol Direct HDL Cholesterol Free T4 PTH Intact Urine WBC (Auto) Urine Creatinine Salicylates Acetaminophen Crossmatch 04/16/19 04/16/19 04/17/19 05:07 05:07 04:15 WBC 12.6 H RBC 3.12 L Hgb 9.0 L Hct 28.2 L MCV MCHC RDW 16.6 H Plt Count Lymph % (Auto) 10.3 L Major % (Auto) 9.8 H Lymph # Major # 1.2 H Seg Neutrophils % 78.2 H Seg Neuts % (Manual) Lymphocytes % (Manual) Monocytes % (Manual) Nucleated RBC % Seg Neutrophils # 9.9 H Seg Neutrophils # Man Lymphocytes # (Manual) Monocytes # (Manual) PT INR D-Dimer Heparin Anti-Xa Level POC ABG pH ABG pH POC ABG pCO2 POC ABG pO2 ABG pO2 ABG HCO3 ABG O2 Saturation ABG Base Excess ABG Hemoglobin Oxyhemoglobin Sodium 147 H 150 H Potassium 3.5 L 3.1 L Chloride Carbon Dioxide 32 H BUN 54 H 65 H Creatinine 3.8 H 4.0 H Glucose 102 H 107 H POC Glucose Lactic Acid Calcium 11.7 H 12.0 H Ionized Calcium Phosphorus 5.40 H Magnesium Iron TIBC Ferritin Total Bilirubin Direct Bilirubin AST ALT Alkaline Phosphatase Total Creatine Kinase CK-MB (CK-2) Troponin T C-Reactive Protein 7.10 H Total Protein Albumin Triglycerides LDL Cholesterol Direct HDL Cholesterol Free T4 PTH Intact Urine WBC (Auto) Urine Creatinine Salicylates Acetaminophen Crossmatch 04/17/19 04/17/19 04/17/19 04:15 06:05 12:49 WBC 15.8 H RBC 3.32 L Hgb 9.5 L Hct 29.9 L MCV MCHC RDW 16.9 H Plt Count Lymph % (Auto) 12.6 L Major % (Auto) 11.1 H Lymph # Major # 1.7 H Seg Neutrophils % 74.7 H Seg Neuts % (Manual) Lymphocytes % (Manual) Monocytes % (Manual) Nucleated RBC % Seg Neutrophils # 11.8 H Seg Neutrophils # Man Lymphocytes # (Manual) Monocytes # (Manual) PT INR D-Dimer Heparin Anti-Xa Level POC ABG pH ABG pH POC ABG pCO2 POC ABG pO2 ABG pO2 ABG HCO3 ABG O2 Saturation ABG Base Excess ABG Hemoglobin Oxyhemoglobin Sodium Potassium Chloride Carbon Dioxide BUN Creatinine Glucose POC Glucose 111 H 108 H Lactic Acid Calcium Ionized Calcium Phosphorus Magnesium Iron TIBC Ferritin Total Bilirubin Direct Bilirubin AST ALT Alkaline Phosphatase Total Creatine Kinase CK-MB (CK-2) Troponin T C-Reactive Protein Total Protein Albumin Triglycerides LDL Cholesterol Direct HDL Cholesterol Free T4 PTH Intact Urine WBC (Auto) Urine Creatinine Salicylates Acetaminophen Crossmatch 04/18/19 04/18/19 04/18/19 00:23 04:41 04:41 WBC 19.4 H RBC 3.03 L Hgb 8.6 L Hct 27.5 L MCV MCHC 31 L RDW 16.9 H Plt Count Lymph % (Auto) Major % (Auto) Lymph # Major # Seg Neutrophils % Seg Neuts % (Manual) Lymphocytes % (Manual) Monocytes % (Manual) Nucleated RBC % Seg Neutrophils # Seg Neutrophils # Man Lymphocytes # (Manual) Monocytes # (Manual) PT INR D-Dimer Heparin Anti-Xa Level POC ABG pH ABG pH POC ABG pCO2 POC ABG pO2 ABG pO2 ABG HCO3 ABG O2 Saturation ABG Base Excess ABG Hemoglobin Oxyhemoglobin Sodium 152 H Potassium 3.0 L Chloride Carbon Dioxide BUN 80 H Creatinine 4.3 H Glucose 103 H POC Glucose 115 H Lactic Acid Calcium 11.4 H Ionized Calcium Phosphorus Magnesium Iron TIBC Ferritin Total Bilirubin Direct Bilirubin AST ALT Alkaline Phosphatase Total Creatine Kinase CK-MB (CK-2) Troponin T C-Reactive Protein Total Protein Albumin Triglycerides LDL Cholesterol Direct HDL Cholesterol Free T4 PTH Intact Urine WBC (Auto) Urine Creatinine Salicylates Acetaminophen Crossmatch 04/18/19 04/18/19 04/18/19 06:17 12:16 18:10 WBC RBC Hgb Hct MCV MCHC RDW Plt Count Lymph % (Auto) Major % (Auto) Lymph # Major # Seg Neutrophils % Seg Neuts % (Manual) Lymphocytes % (Manual) Monocytes % (Manual) Nucleated RBC % Seg Neutrophils # Seg Neutrophils # Man Lymphocytes # (Manual) Monocytes # (Manual) PT INR D-Dimer Heparin Anti-Xa Level POC ABG pH ABG pH POC ABG pCO2 POC ABG pO2 ABG pO2 ABG HCO3 ABG O2 Saturation ABG Base Excess ABG Hemoglobin Oxyhemoglobin Sodium Potassium Chloride Carbon Dioxide BUN Creatinine Glucose POC Glucose 124 H 119 H 111 H Lactic Acid Calcium Ionized Calcium Phosphorus Magnesium Iron TIBC Ferritin Total Bilirubin Direct Bilirubin AST ALT Alkaline Phosphatase Total Creatine Kinase CK-MB (CK-2) Troponin T C-Reactive Protein Total Protein Albumin Triglycerides LDL Cholesterol Direct HDL Cholesterol Free T4 PTH Intact Urine WBC (Auto) Urine Creatinine Salicylates Acetaminophen Crossmatch 04/19/19 04/19/19 03:49 05:27 WBC RBC Hgb Hct MCV MCHC RDW Plt Count Lymph % (Auto) Major % (Auto) Lymph # Major # Seg Neutrophils % Seg Neuts % (Manual) Lymphocytes % (Manual) Monocytes % (Manual) Nucleated RBC % Seg Neutrophils # Seg Neutrophils # Man Lymphocytes # (Manual) Monocytes # (Manual) PT INR D-Dimer Heparin Anti-Xa Level POC ABG pH ABG pH POC ABG pCO2 POC ABG pO2 ABG pO2 ABG HCO3 ABG O2 Saturation ABG Base Excess ABG Hemoglobin Oxyhemoglobin Sodium 147 H Potassium 3.3 L Chloride Carbon Dioxide BUN 45 H Creatinine 2.9 H Glucose POC Glucose 124 H Lactic Acid Calcium 10.6 H Ionized Calcium Phosphorus Magnesium Iron TIBC Ferritin Total Bilirubin Direct Bilirubin AST ALT Alkaline Phosphatase Total Creatine Kinase CK-MB (CK-2) Troponin T C-Reactive Protein Total Protein Albumin Triglycerides LDL Cholesterol Direct HDL Cholesterol Free T4 PTH Intact Urine WBC (Auto) Urine Creatinine Salicylates Acetaminophen Crossmatch
[2019-04-19] MEDS ORDERED: POTASSIUM CHLORIDE 20 MEQ PACKET FEEDTUBE NR (16:33)
[2019-04-20] MEDS: ACETAMINOPHEN 325 MG TAB PO PRN ×2 (00:16→06:41)
[2019-04-20] MEDS: METOPROLOL TARTRATE 5 MG/5 ML INJ IV PRN ×2 (04:59→13:58)
[2019-04-20] MEDS: LINEZOLID 600 MG/300 ML BAG IV SCH ×2 (04:59→17:58)
[2019-04-20] MEDS ORDERED: SODIUM CHLORIDE 0.9% 100 ML IV PRN ×2 (08:34→08:41)
[2019-04-20 10:27] LABS: Calcium 11.6 mg/dL (8.4-10.2)
[2019-04-20] MEDS: METOPROLOL TARTRATE 25 MG TAB PO SCH ×3 (10:48→22:35)
[2019-04-20] MEDS: LANSOPRAZOLE 30 MG SOLUTAB FEEDTUBE SCH ×2 (10:51→22:15)
[2019-04-20] MEDS: AZTREONAM/NS 2 GM/100 ML 2 GM/100 ML VIAL IV SCH (10:51)
[2019-04-20] MEDS: AMIODARONE 200 MG TAB PO SCH ×2 (10:51→22:15)
[2019-04-20] MEDS: SODIUM HYPOCHLORITE, DAKIN'S 1/2 STRENGTH (0.25%) 473 ML TOPICAL SOLN TP SCH ×2 (10:52→22:16)
--- NOTE | 2019-04-20 10:55 | Progress Note ---
Assessment and Plan 1. Acute kidney injury: Vasomotor RUBEN in the setting of shock / volume depletion / Rhabdo. Baseline renal function is unknown. CT abdomen was negative for obstructive nephropathy. Patient was started on hemodialysis on 03/18/19 due to worsening metabolic acidosis and hyperkalemia. Monitor renal function. Renal prognosis is guarded. Avoid nephrotoxic agents. Meds dosage based on GFR. Hemodialysis: 03/18, 03/19, 03/20, 03/22, 03/23, 03/24, 03/26, 03/28, 03/29, 03/31, 04/02, 04/04, 04/06, 04/09, 04/11, 04/13, 04/18, 04/20. 2. FEN: Hypokalemia, replete K. Hypernatremia, monitor. Metabolic acidosis, improved. Volume overload, improving. Hypercalcemia, monitor. Low Ca bath. Monitor lytes. 3. Septic shock: Currently off pressors. Recurrent fever. ID recommended to remove the dialysis catheter. Plan to remove the dialysis catheter today after hemodialysis. 4. Rhabdomyolysis: Improved. 5. A.fib with RVR: On Amiodarone and Metoprolol. Followed by Cards. 6. Respiratory failure: Extubated. On BIPAP intermittently. 7. Severe anemia: S/p PRBC. On Epogen. 8. Elevated transaminases: Improved. 9. Encephalopathy. Examination: General appearance: well-developed, appears stated age, obese, NG tube noted HEENT: Atraumatic EYES: Pupils reacting to light Neck: supple Respiratory: CTAB, decreased breath sounds Cardiology: regular, S1S2 heard, no murmur Gastrointestinal: obese, BS heard, not tender Integumentary: no rash noted Neurologic: follows command, conversing, some confusion noted Ext: L UE edematous Hemodialysis access: R IJ temp catheter Subjective Date of service: 04/20/19 Principal diagnosis: anemia - DVT IJ Interval history: Patient was seen and examined at the bedside. Objective - Vital Signs Vital signs: Vital Signs - 12hr 04/19/19 04/20/19 04/20/19 23:00 00:00 01:00 Temperature 102.3 F H Pulse Rate 91 H 90 91 H Pulse Rate [ 90 From Monitor] Respiratory 32 H 20 37 H Rate Blood Pressure 112/76 119/62 122/68 O2 Sat by Pulse 95 94 95 Oximetry 04/20/19 04/20/19 04/20/19 02:00 03:00 04:00 Temperature 99 F Pulse Rate 92 H 95 H 95 H Pulse Rate [ 108 H From Monitor] Respiratory 22 41 H 25 H Rate Blood Pressure 128/60 129/69 121/66 O2 Sat by Pulse 95 96 95 Oximetry 04/20/19 04/20/19 04/20/19 04:59 05:00 06:00 Temperature Pulse Rate 150 H 147 H Pulse Rate [ From Monitor] Respiratory 31 H Rate Blood Pressure 121/66 121/66 111/60 O2 Sat by Pulse 94 96 Oximetry 04/20/19 04/20/19 04/20/19 06:41 07:00 08:00 Temperature 99.4 F Pulse Rate 94 H 94 H Pulse Rate [ From Monitor] Respiratory 35 H 35 H 27 H Rate Blood Pressure 96/69 119/64 O2 Sat by Pulse 94 94 Oximetry 04/20/19 04/20/19 04/20/19 08:47 09:55 10:00 Temperature 99.1 F Pulse Rate 91 H 90 Pulse Rate [ From Monitor] Respiratory 24 Rate Blood Pressure 130/64 123/72 O2 Sat by Pulse 97 Oximetry 04/20/19 04/20/19 04/20/19 10:15 10:30 10:48 Temperature Pulse Rate 91 H 90 89 Pulse Rate [ From Monitor] Respiratory Rate Blood Pressure 113/67 110/67 106/68 O2 Sat by Pulse Oximetry - Lab 04/18/19 04:41 04/20/19 09:09 Most recent lab results ABG pH 7.388 pH Units (7.350-7.450) 04/06/19 05:20 ABG pCO2 38.5 mm Hg 04/06/19 05:20 ABG pO2 104.0 mm Hg (80.0-90.0) H 04/06/19 05:20 ABG HCO3 22.6 mmol/L (20.0-26.0) 04/06/19 05:20 ABG O2 Saturation 97.8 % (95.0-99.0) 04/06/19 05:20 Calcium 11.6 mg/dL (8.4-10.2) H 04/20/19 09:09 Phosphorus 5.40 mg/dL (2.5-4.5) H 04/17/19 04:15 Magnesium 1.90 mg/dL (1.7-2.3) 03/31/19 15:07 Urine Creatinine 106.6 mg/dL (0.1-20.0) H 03/17/19 16:05 Urine Sodium 95 mmol/L 03/17/19 16:05 Medications & Allergies - Medications Allergies/Adverse Reactions: Allergies No Known Allergies Allergy (Unverified 03/16/19 17:17) Home Medications: Home Medications Medication Instructions Recorded Confirmed Last Taken Type Unobtainable 03/18/19 04/20/19 Unknown History Active Medications: Generic Name Dose Route Start Last Admin Trade Name Freq PRN Reason Stop Dose Admin Acetaminophen 650 mg 04/02/19 23:26 04/20/19 06:41 Tylenol PO 650 mg Q4H PRN Administration Pain, Mild (1-3),temp>100.5 Albuterol 2.5 mg 03/29/19 13:08 Proventil IH Q4HRT PRN Shortness Of Breath Amiodarone HCl 200 mg 04/15/19 22:00 04/20/19 10:51 Cordarone PO 200 mg BID PAOLO Administration Bacitracin 1 applic 04/17/19 08:00 Antibiotic Oint TP Q4H PRN upper lip sore/open Dextrose 50 gm 04/17/19 08:00 D50w (25gm) Vial IV Q1H PRN Hypoglycemia Epoetin Jet 20,000 unit 03/31/19 10:15 04/18/19 17:52 Procrit SUB-Q 20,000 unit NEYMAR PRN Administration hemodialysis Hydralazine HCl 20 mg 04/14/19 03:00 04/14/19 03:11 Apresoline IV 20 mg Q4H PRN Administration hypertemsion Hydrophilic Ointment 1 applic 03/16/19 15:50 04/19/19 18:24 Vaseline Lip Therapy TP 1 applic Q2HR PRN Administration Dry Lips Aztreonam 2 gm in 100 mls @ 100 mls/hr 04/17/19 18:00 04/20/19 10:51 Azactam/Ns 2 Gm/100 Ml IV 100 mls/hr Q24HR PAOLO Administration Protocol Linezolid 600 mg in 300 mls @ 300 mls/hr 04/17/19 17:00 04/20/19 04:59 Zyvox 600mg/300ml IV 300 mls/hr Q12H PAOLO Administration Protocol Sodium Chloride 100 mls @ 999 mls/hr 04/20/19 08:41 Nacl 0.9% IV NEYMAR PRN Hypotension Lansoprazole 30 mg 04/11/19 10:00 04/20/19 10:51 Prevacid Solutab FEEDTUBE 30 mg BID PAOLO Administration Metoprolol Tartrate 5 mg 04/16/19 22:24 04/20/19 04:59 Lopressor IV 5 mg Q6H PRN Administration For HR >120 Metoprolol Tartrate 25 mg 04/17/19 20:00 04/20/19 10:48 Lopressor PO Not Given TID PAOLO Multi-Ingred Cream/Lotion/Oil/Oint 1 applic 03/16/19 15:50 03/19/19 20:10 Artificial Tears Ophth Oint OU 1 applic Q4HR PRN Administration Dry Eye(s) Sodium Hypochlorite 1 applic 04/18/19 11:00 04/20/19 10:52 Dakin's Half Strength TP 1 applicatio BID PAOLO Administration
--- NOTE | 2019-04-20 11:35 | Progress Note ---
Assessment and Plan Severe sepsis with shock. Right axilla abscess versus localized pannus/fatty collection. Acute hypoxemic respiratory failure, s/p mechanical ventilator support. Likely aspiration pneumonia, bilateral. Morbid obesity. Acute kidney injury secondary to ATN on HD. Leukocytosis-resolved Elevated serum transaminases/possible shock liver. Acute encephalopathy, toxic metabolic Thrombocytopenia- etiology, multifactorial- improving RIJ non-occlusive thrombus Oropharyngeal dysphagia Acute blood loss anemia with hemorrhagic shock- resolved Critical illness myopathy Hypernatremia -Encouraged to continue to adhere to nocturnal BIPAP -wean FiO2 for O2 sats>92% -prn ABG and CXR - Continue to monitor off antibiotics per ID. s/p empiric antibiotics -Removal of HD catheter after HD today. Line holiday then possibly perma cath placement in 48-72 hours - continue HD/UF per nephrology -Aspiration precautions, HOB >40 - prn analgesia per CPOT score - prn supportive blood transfusions to keep HgB > 7.0 - Monitor hemodynamics closely - continue mobility protocols and off loading as tolerated for pressure ulcer prevention - continue to avoid nephrotoxins, adjust all medications for GFR and CRCL - continue GI & VTE prophylaxis ( SCDs and therapeutic pantoprazole, dosed for renal function) - accuchecks with glycemic control per SSI for target BG of 140-180 mg/dl - avoid hypoglycemia - 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 CONDITION: IMPROVING PROGNOSIS: FAIR CODE STATUS: FULL Subjective Date of service: 04/20/19 Principal diagnosis: anemia - DVT IJ Interval history: Patient is seen today for: Severe sepsis with shock; Acute hypoxemic respiratory failure; Aspiration pneumonia; Morbid obesity; Rhabdomyolysis; Acute kidney injury; Morbid obesity; Elevated serum transaminases/possible shock liver; Acute encephalopathy (Toxic/Met) Seen and examined at bedside; 24hour events reviewed; nursing and respiratory care staff consulted; no adverse overnight events reported to me; resting peacefully in bed on HD; hoarseness persists; blood pressure has been labile this morning, has not required any volume resuscitation or vasopressor support. Vitals, labs, medications, chart and imaging reviewed. Objective Vital Signs - 12hr 04/20/19 04/20/19 04/20/19 00:00 01:00 02:00 Temperature 102.3 F H Pulse Rate 90 91 H 92 H Pulse Rate [ 90 From Monitor] Respiratory 20 37 H 22 Rate Blood Pressure 119/62 122/68 128/60 O2 Sat by Pulse 94 95 95 Oximetry 04/20/19 04/20/19 04/20/19 03:00 04:00 04:59 Temperature 99 F Pulse Rate 95 H 95 H 150 H Pulse Rate [ 108 H From Monitor] Respiratory 41 H 25 H Rate Blood Pressure 129/69 121/66 121/66 O2 Sat by Pulse 96 95 Oximetry 04/20/19 04/20/19 04/20/19 05:00 06:00 06:41 Temperature Pulse Rate 147 H Pulse Rate [ From Monitor] Respiratory 31 H 35 H Rate Blood Pressure 121/66 111/60 O2 Sat by Pulse 94 96 Oximetry 04/20/19 04/20/19 04/20/19 07:00 08:00 08:47 Temperature 99.4 F Pulse Rate 94 H 94 H Pulse Rate [ From Monitor] Respiratory 35 H 27 H Rate Blood Pressure 96/69 119/64 O2 Sat by Pulse 94 94 97 Oximetry 04/20/19 04/20/19 04/20/19 09:55 10:00 10:15 Temperature 99.1 F Pulse Rate 91 H 90 91 H Pulse Rate [ From Monitor] Respiratory 24 Rate Blood Pressure 130/64 123/72 113/67 O2 Sat by Pulse Oximetry 04/20/19 04/20/19 10:30 10:48 Temperature Pulse Rate 90 89 Pulse Rate [ From Monitor] Respiratory Rate Blood Pressure 110/67 106/68 O2 Sat by Pulse Oximetry Constitutional: no acute distress, alert Eyes: icteric ENT: oropharynx moist Neck: supple, no lymphadenopathy, no JVD, other (large neck circumference) Effort: normal Ascultation: Bilateral: diminished breath sounds, rales, rhonchi (scant) Percussion: Bilateral: not dull Cardiovascular: regular rate and rhythm, other ( S1,S2) Gastrointestinal: normoactive bowel sounds, soft, non-tender Integumentary: normal Extremities: no cyanosis, pink and warm, pulses normal, no ischemia or petechiae, edema (right upper extremity) Neurologic: normal mental status, non-focal exam (grossly), pupils equal and round, CN II-XII normal, other (very weak, intermittent confusion, left extremity weaker than the right) Psychiatric: mood appropriate, affect normal CBC and BMP: 04/18/19 04:41 04/20/19 09:09 ABG, PT/INR, D-dimer: ABG POC ABG pH 7.401 (7.35-7.45) 04/07/19 12:57 ABG pH 7.388 pH Units (7.350-7.450) 04/06/19 05:20 POC ABG pCO2 41.5 (35-45) 04/07/19 12:57 ABG pCO2 38.5 mm Hg 04/06/19 05:20 POC ABG pO2 107 (80-105) H 04/07/19 12:57 ABG pO2 104.0 mm Hg (80.0-90.0) H 04/06/19 05:20 POC ABG HCO3 25.7 (22-26 mml/L) 04/07/19 12:57 POC ABG Total CO2 27 (23-27mmol/L) 04/07/19 12:57 POC ABG O2 Sat 98 04/07/19 12:57 ABG O2 Saturation 97.8 % (95.0-99.0) 04/06/19 05:20 PT/INR, D-dimer PT 15.3 Sec. (12.2-14.9) H 03/29/19 11:48 INR 1.24 (0.87-1.13) H 03/29/19 11:48 D-Dimer 4845.98 ng/mlDDU (0-234) H 03/28/19 12:00 Abnormal lab findings: Abnormal Labs 03/16/19 03/16/19 03/16/19 15:32 16:03 16:05 WBC 27.0 H RBC 5.55 H Hgb 15.7 H Hct 47.1 H MCV MCHC RDW Plt Count 75 L Lymph % (Auto) [place] % (Auto) Lymph # [place] # Seg Neutrophils % Seg Neuts % (Manual) 85.0 H Lymphocytes % (Manual) 2.0 L Monocytes % (Manual) Nucleated RBC % Seg Neutrophils # Seg Neutrophils # Man 23.0 H Lymphocytes # (Manual) 0.5 L Monocytes # (Manual) PT INR D-Dimer Heparin Anti-Xa Level POC ABG pH ABG pH POC ABG pCO2 POC ABG pO2 ABG pO2 ABG HCO3 ABG O2 Saturation ABG Base Excess ABG Hemoglobin Oxyhemoglobin Sodium 127 L Potassium Chloride 87.8 L Carbon Dioxide 17 L BUN 49 H Creatinine 5.8 H Glucose 150 H POC Glucose 118 H Lactic Acid Calcium 6.6 L Ionized Calcium Phosphorus Magnesium 1.10 L Iron TIBC Ferritin Total Bilirubin Direct Bilirubin AST ALT Alkaline Phosphatase Total Creatine Kinase 29125 H CK-MB (CK-2) Troponin T C-Reactive Protein Total Protein Albumin Triglycerides LDL Cholesterol Direct HDL Cholesterol Free T4 PTH Intact Urine WBC (Auto) Urine Creatinine Salicylates Acetaminophen Crossmatch 03/16/19 03/16/19 03/16/19 16:59 17:05 17:05 WBC RBC Hgb Hct MCV MCHC RDW Plt Count Lymph % (Auto) [place] % (Auto) Lymph # [place] # Seg Neutrophils % Seg Neuts % (Manual) Lymphocytes % (Manual) Monocytes % (Manual) Nucleated RBC % Seg Neutrophils # Seg Neutrophils # Man Lymphocytes # (Manual) Monocytes # (Manual) PT INR D-Dimer Heparin Anti-Xa Level POC ABG pH 7.297 L ABG pH POC ABG pCO2 33.0 L POC ABG pO2 ABG pO2 ABG HCO3 ABG O2 Saturation ABG Base Excess ABG Hemoglobin Oxyhemoglobin Sodium Potassium Chloride Carbon Dioxide BUN Creatinine Glucose POC Glucose Lactic Acid Calcium Ionized Calcium Phosphorus Magnesium Iron TIBC Ferritin Total Bilirubin Direct Bilirubin AST ALT Alkaline Phosphatase Total Creatine Kinase 03196 H CK-MB (CK-2) 83.1 H Troponin T C-Reactive Protein Total Protein Albumin Triglycerides LDL Cholesterol Direct HDL Cholesterol Free T4 0.72 L PTH Intact Urine WBC (Auto) Urine Creatinine Salicylates Acetaminophen Crossmatch 03/16/19 03/16/19 03/16/19 17:05 17:05 17:05 WBC RBC Hgb Hct MCV MCHC RDW Plt Count Lymph % (Auto) [place] % (Auto) Lymph # [place] # Seg Neutrophils % Seg Neuts % (Manual) Lymphocytes % (Manual) Monocytes % (Manual) Nucleated RBC % Seg Neutrophils # Seg Neutrophils # Man Lymphocytes # (Manual) Monocytes # (Manual) PT INR D-Dimer Heparin Anti-Xa Level POC ABG pH ABG pH POC ABG pCO2 POC ABG pO2 ABG pO2 ABG HCO3 ABG O2 Saturation ABG Base Excess ABG Hemoglobin Oxyhemoglobin Sodium Potassium Chloride Carbon Dioxide BUN Creatinine Glucose POC Glucose Lactic Acid 5.10 H* Calcium Ionized Calcium Phosphorus Magnesium Iron TIBC Ferritin Total Bilirubin Direct Bilirubin AST ALT Alkaline Phosphatase Total Creatine Kinase CK-MB (CK-2) Troponin T C-Reactive Protein Total Protein Albumin Triglycerides LDL Cholesterol Direct HDL Cholesterol Free T4 PTH Intact Urine WBC (Auto) Urine Creatinine Salicylates < 0.3 L Acetaminophen < 5.0 L Crossmatch 03/16/19 03/16/19 03/16/19 17:05 17:05 20:35 WBC RBC Hgb Hct MCV MCHC RDW Plt Count Lymph % (Auto) [place] % (Auto) Lymph # [place] # Seg Neutrophils % Seg Neuts % (Manual) Lymphocytes % (Manual) Monocytes % (Manual) Nucleated RBC % Seg Neutrophils # Seg Neutrophils # Man Lymphocytes # (Manual) Monocytes # (Manual) PT 15.9 H INR 1.30 H D-Dimer Heparin Anti-Xa Level POC ABG pH ABG pH POC ABG pCO2 POC ABG pO2 ABG pO2 ABG HCO3 ABG O2 Saturation ABG Base Excess ABG Hemoglobin Oxyhemoglobin Sodium Potassium Chloride Carbon Dioxide BUN Creatinine Glucose POC Glucose Lactic Acid 3.30 H* Calcium Ionized Calcium Phosphorus Magnesium Iron TIBC Ferritin Total Bilirubin 6.20 H Direct Bilirubin 5.9 H AST 800 H ALT 120 H Alkaline Phosphatase Total Creatine Kinase CK-MB (CK-2) Troponin T C-Reactive Protein Total Protein 4.4 L Albumin 2.4 L Triglycerides LDL Cholesterol Direct HDL Cholesterol Free T4 PTH Intact Urine WBC (Auto) Urine Creatinine Salicylates Acetaminophen Crossmatch 03/16/19 03/16/19 03/16/19 21:45 22:32 Unknown WBC RBC Hgb Hct MCV MCHC RDW Plt Count Lymph % (Auto) [place] % (Auto) Lymph # [place] # Seg Neutrophils % Seg Neuts % (Manual) Lymphocytes % (Manual) Monocytes % (Manual) Nucleated RBC % Seg Neutrophils # Seg Neutrophils # Man Lymphocytes # (Manual) Monocytes # (Manual) PT INR D-Dimer Heparin Anti-Xa Level POC ABG pH ABG pH POC ABG pCO2 POC ABG pO2 ABG pO2 ABG HCO3 ABG O2 Saturation ABG Base Excess ABG Hemoglobin Oxyhemoglobin Sodium Potassium Chloride Carbon Dioxide BUN Creatinine Glucose POC Glucose Lactic Acid 3.30 H* 3.00 H* Calcium Ionized Calcium Phosphorus Magnesium Iron TIBC Ferritin Total Bilirubin Direct Bilirubin AST ALT Alkaline Phosphatase Total Creatine Kinase CK-MB (CK-2) Troponin T 0.047 H D C-Reactive Protein Total Protein Albumin Triglycerides 395 H LDL Cholesterol Direct 10 L HDL Cholesterol 7 L Free T4 PTH Intact Urine WBC (Auto) Urine Creatinine Salicylates Acetaminophen Crossmatch 03/17/19 03/17/19 03/17/19 03:45 03:45 03:45 WBC RBC Hgb Hct MCV MCHC RDW Plt Count Lymph % (Auto) [place] % (Auto) Lymph # [place] # Seg Neutrophils % Seg Neuts % (Manual) Lymphocytes % (Manual) Monocytes % (Manual) Nucleated RBC % Seg Neutrophils # Seg Neutrophils # Man Lymphocytes # (Manual) Monocytes # (Manual) PT INR D-Dimer Heparin Anti-Xa Level POC ABG pH ABG pH POC ABG pCO2 POC ABG pO2 ABG pO2 ABG HCO3 ABG O2 Saturation ABG Base Excess ABG Hemoglobin Oxyhemoglobin Sodium 131 L Potassium Chloride 88.9 L Carbon Dioxide BUN 53 H Creatinine 7.1 H Glucose POC Glucose Lactic Acid 4.10 H* Calcium 5.4 L* D Ionized Calcium Phosphorus 7.30 H Magnesium 1.60 L Iron TIBC Ferritin Total Bilirubin 5.90 H Direct Bilirubin AST 801 H ALT 109 H Alkaline Phosphatase Total Creatine Kinase 99196 H 84962 H CK-MB (CK-2) 41.5 H Troponin T 0.054 H C-Reactive Protein Total Protein 4.5 L Albumin 2.0 L Triglycerides LDL Cholesterol Direct HDL Cholesterol Free T4 PTH Intact Urine WBC (Auto) Urine Creatinine Salicylates Acetaminophen Crossmatch 03/17/19 03/17/19 03/17/19 05:47 07:16 07:16 WBC RBC Hgb Hct MCV MCHC RDW Plt Count Lymph % (Auto) [place] % (Auto) Lymph # [place] # Seg Neutrophils % Seg Neuts % (Manual) Lymphocytes % (Manual) Monocytes % (Manual) Nucleated RBC % Seg Neutrophils # Seg Neutrophils # Man Lymphocytes # (Manual) Monocytes # (Manual) PT INR D-Dimer Heparin Anti-Xa Level POC ABG pH 7.193 L ABG pH POC ABG pCO2 45.2 H POC ABG pO2 65 L ABG pO2 ABG HCO3 ABG O2 Saturation ABG Base Excess ABG Hemoglobin Oxyhemoglobin Sodium Potassium Chloride Carbon Dioxide BUN Creatinine Glucose POC Glucose Lactic Acid 5.50 H* Calcium Ionized Calcium Phosphorus Magnesium Iron TIBC Ferritin Total Bilirubin Direct Bilirubin AST ALT Alkaline Phosphatase Total Creatine Kinase 14050 H CK-MB (CK-2) 54.3 H Troponin T 0.058 H C-Reactive Protein Total Protein Albumin Triglycerides LDL Cholesterol Direct HDL Cholesterol Free T4 PTH Intact Urine WBC (Auto) Urine Creatinine Salicylates Acetaminophen Crossmatch 03/17/19 03/17/19 03/17/19 11:52 12:51 13:01 WBC RBC Hgb Hct MCV MCHC RDW Plt Count Lymph % (Auto) [place] % (Auto) Lymph # [place] # Seg Neutrophils % Seg Neuts % (Manual) Lymphocytes % (Manual) Monocytes % (Manual) Nucleated RBC % Seg Neutrophils # Seg Neutrophils # Man Lymphocytes # (Manual) Monocytes # (Manual) PT INR D-Dimer Heparin Anti-Xa Level POC ABG pH 7.154 L ABG pH POC ABG pCO2 34.3 L POC ABG pO2 73 L ABG pO2 ABG HCO3 ABG O2 Saturation ABG Base Excess ABG Hemoglobin Oxyhemoglobin Sodium Potassium Chloride Carbon Dioxide BUN Creatinine Glucose POC Glucose 60 L Lactic Acid 8.20 H* Calcium Ionized Calcium Phosphorus Magnesium Iron TIBC Ferritin Total Bilirubin Direct Bilirubin AST ALT Alkaline Phosphatase Total Creatine Kinase CK-MB (CK-2) Troponin T C-Reactive Protein Total Protein Albumin Triglycerides LDL Cholesterol Direct HDL Cholesterol Free T4 PTH Intact Urine WBC (Auto) Urine Creatinine Salicylates Acetaminophen Crossmatch 03/17/19 03/17/19 03/17/19 14:37 14:37 14:37 WBC 29.3 H RBC Hgb Hct MCV MCHC RDW 15.8 H Plt Count 45 L Lymph % (Auto) [place] % (Auto) Lymph # [place] # Seg Neutrophils % Seg Neuts % (Manual) 81.0 H Lymphocytes % (Manual) 1.0 L Monocytes % (Manual) 15.0 H Nucleated RBC % Seg Neutrophils # Seg Neutrophils # Man 23.7 H Lymphocytes # (Manual) 0.3 L Monocytes # (Manual) 4.4 H PT INR D-Dimer Heparin Anti-Xa Level POC ABG pH ABG pH POC ABG pCO2 POC ABG pO2 ABG pO2 ABG HCO3 ABG O2 Saturation ABG Base Excess ABG Hemoglobin Oxyhemoglobin Sodium Potassium Chloride Carbon Dioxide BUN Creatinine Glucose POC Glucose Lactic Acid 4.90 H* Calcium Ionized Calcium Phosphorus Magnesium Iron TIBC Ferritin Total Bilirubin Direct Bilirubin AST ALT Alkaline Phosphatase Total Creatine Kinase CK-MB (CK-2) Troponin T C-Reactive Protein 24.90 H Total Protein Albumin Triglycerides LDL Cholesterol Direct HDL Cholesterol Free T4 PTH Intact Urine WBC (Auto) Urine Creatinine Salicylates Acetaminophen Crossmatch 09/21/19 09/21/19 09/21/19 16:05 16:05 17:02 WBC RBC Hgb Hct MCV MCHC RDW Plt Count Lymph % (Auto) [place] % (Auto) Lymph # [place] # Seg Neutrophils % Seg Neuts % (Manual) Lymphocytes % (Manual) Monocytes % (Manual) Nucleated RBC % Seg Neutrophils # Seg Neutrophils # Man Lymphocytes # (Manual) Monocytes # (Manual) PT INR D-Dimer Heparin Anti-Xa Level POC ABG pH 7.183 L ABG pH POC ABG pCO2 POC ABG pO2 65 L ABG pO2 ABG HCO3 ABG O2 Saturation ABG Base Excess ABG Hemoglobin Oxyhemoglobin Sodium Potassium Chloride Carbon Dioxide BUN Creatinine Glucose POC Glucose Lactic Acid Calcium Ionized Calcium Phosphorus Magnesium Iron TIBC Ferritin Total Bilirubin Direct Bilirubin AST ALT Alkaline Phosphatase Total Creatine Kinase CK-MB (CK-2) Troponin T C-Reactive Protein Total Protein Albumin Triglycerides LDL Cholesterol Direct HDL Cholesterol Free T4 PTH Intact Urine WBC (Auto) 30.0 H Urine Creatinine 106.6 H Salicylates Acetaminophen Crossmatch 03/18/19 03/18/19 03/18/19 05:12 05:16 05:53 WBC RBC Hgb Hct MCV MCHC RDW Plt Count Lymph % (Auto) [place] % (Auto) Lymph # [place] # Seg Neutrophils % Seg Neuts % (Manual) Lymphocytes % (Manual) Monocytes % (Manual) Nucleated RBC % Seg Neutrophils # Seg Neutrophils # Man Lymphocytes # (Manual) Monocytes # (Manual) PT INR D-Dimer Heparin Anti-Xa Level POC ABG pH 7.257 L ABG pH POC ABG pCO2 31.6 L POC ABG pO2 69 L ABG pO2 ABG HCO3 ABG O2 Saturation ABG Base Excess ABG Hemoglobin Oxyhemoglobin Sodium Potassium Chloride Carbon Dioxide BUN Creatinine Glucose POC Glucose 141 H Lactic Acid 5.00 H* Calcium Ionized Calcium Phosphorus Magnesium Iron TIBC Ferritin Total Bilirubin Direct Bilirubin AST ALT Alkaline Phosphatase Total Creatine Kinase CK-MB (CK-2) Troponin T C-Reactive Protein Total Protein Albumin Triglycerides LDL Cholesterol Direct HDL Cholesterol Free T4 PTH Intact Urine WBC (Auto) Urine Creatinine Salicylates Acetaminophen Crossmatch 03/18/19 03/18/19 03/18/19 06:57 08:40 08:40 WBC 31.7 H RBC Hgb Hct MCV MCHC RDW 15.5 H Plt Count 35 L Lymph % (Auto) [place] % (Auto) Lymph # [place] # Seg Neutrophils % Seg Neuts % (Manual) Lymphocytes % (Manual) Monocytes % (Manual) Nucleated RBC % Seg Neutrophils # Seg Neutrophils # Man Lymphocytes # (Manual) Monocytes # (Manual) PT INR D-Dimer Heparin Anti-Xa Level POC ABG pH ABG pH POC ABG pCO2 POC ABG pO2 ABG pO2 ABG HCO3 ABG O2 Saturation ABG Base Excess ABG Hemoglobin Oxyhemoglobin Sodium 132 L Potassium 5.5 H D Chloride 88.5 L Carbon Dioxide 18 L BUN 71 H Creatinine 8.1 H Glucose 205 H POC Glucose Lactic Acid 5.00 H* Calcium 4.1 L* D Ionized Calcium Phosphorus Magnesium 2.40 H Iron TIBC Ferritin Total Bilirubin 7.50 H Direct Bilirubin AST 1088 H ALT 159 H Alkaline Phosphatase 190 H Total Creatine Kinase 424950 H CK-MB (CK-2) Troponin T C-Reactive Protein Total Protein 4.7 L Albumin 1.8 L Triglycerides LDL Cholesterol Direct HDL Cholesterol Free T4 PTH Intact Urine WBC (Auto) Urine Creatinine Salicylates Acetaminophen Crossmatch 03/18/19 03/18/19 03/18/19 12:33 12:50 13:19 WBC RBC Hgb Hct MCV MCHC RDW Plt Count Lymph % (Auto) [place] % (Auto) Lymph # [place] # Seg Neutrophils % Seg Neuts % (Manual) Lymphocytes % (Manual) Monocytes % (Manual) Nucleated RBC % Seg Neutrophils # Seg Neutrophils # Man Lymphocytes # (Manual) Monocytes # (Manual) PT INR D-Dimer Heparin Anti-Xa Level POC ABG pH 7.282 L ABG pH POC ABG pCO2 POC ABG pO2 67 L ABG pO2 ABG HCO3 ABG O2 Saturation ABG Base Excess ABG Hemoglobin Oxyhemoglobin Sodium Potassium Chloride Carbon Dioxide BUN Creatinine Glucose POC Glucose 129 H Lactic Acid 3.30 H* Calcium Ionized Calcium Phosphorus Magnesium Iron TIBC Ferritin Total Bilirubin Direct Bilirubin AST ALT Alkaline Phosphatase Total Creatine Kinase CK-MB (CK-2) Troponin T C-Reactive Protein Total Protein Albumin Triglycerides LDL Cholesterol Direct HDL Cholesterol Free T4 PTH Intact Urine WBC (Auto) Urine Creatinine Salicylates Acetaminophen Crossmatch 03/18/19 03/18/19 03/18/19 13:19 16:50 18:11 WBC RBC Hgb Hct MCV MCHC RDW Plt Count Lymph % (Auto) [place] % (Auto) Lymph # [place] # Seg Neutrophils % Seg Neuts % (Manual) Lymphocytes % (Manual) Monocytes % (Manual) Nucleated RBC % Seg Neutrophils # Seg Neutrophils # Man Lymphocytes # (Manual) Monocytes # (Manual) PT INR D-Dimer Heparin Anti-Xa Level POC ABG pH ABG pH POC ABG pCO2 POC ABG pO2 59 L ABG pO2 ABG HCO3 ABG O2 Saturation ABG Base Excess ABG Hemoglobin Oxyhemoglobin Sodium Potassium Chloride Carbon Dioxide BUN Creatinine Glucose POC Glucose 151 H Lactic Acid Calcium 4.2 L* Ionized Calcium Phosphorus Magnesium Iron TIBC Ferritin Total Bilirubin Direct Bilirubin AST ALT Alkaline Phosphatase Total Creatine Kinase 402828 H CK-MB (CK-2) Troponin T C-Reactive Protein Total Protein Albumin Triglycerides LDL Cholesterol Direct HDL Cholesterol Free T4 PTH Intact Urine WBC (Auto) Urine Creatinine Salicylates Acetaminophen Crossmatch 03/18/19 03/18/19 03/19/19 18:20 23:39 01:42 WBC RBC Hgb Hct MCV MCHC RDW Plt Count Lymph % (Auto) [place] % (Auto) Lymph # [place] # Seg Neutrophils % Seg Neuts % (Manual) Lymphocytes % (Manual) Monocytes % (Manual) Nucleated RBC % Seg Neutrophils # Seg Neutrophils # Man Lymphocytes # (Manual) Monocytes # (Manual) PT INR D-Dimer Heparin Anti-Xa Level POC ABG pH 7.345 L ABG pH 7.285 L POC ABG pCO2 POC ABG pO2 59 L ABG pO2 44.0 L ABG HCO3 ABG O2 Saturation 70.9 L ABG Base Excess -5.7 L ABG Hemoglobin 11.9 L Oxyhemoglobin 69.6 L Sodium Potassium Chloride Carbon Dioxide BUN Creatinine Glucose POC Glucose 152 H Lactic Acid Calcium Ionized Calcium Phosphorus Magnesium Iron TIBC Ferritin Total Bilirubin Direct Bilirubin AST ALT Alkaline Phosphatase Total Creatine Kinase CK-MB (CK-2) Troponin T C-Reactive Protein Total Protein Albumin Triglycerides LDL Cholesterol Direct HDL Cholesterol Free T4 PTH Intact Urine WBC (Auto) Urine Creatinine Salicylates Acetaminophen Crossmatch 03/19/19 03/19/19 03/19/19 04:00 04:00 05:35 WBC 36.5 H RBC Hgb Hct MCV MCHC RDW 15.8 H Plt Count 35 L Lymph % (Auto) [place] % (Auto) Lymph # [place] # Seg Neutrophils % Seg Neuts % (Manual) Lymphocytes % (Manual) Monocytes % (Manual) Nucleated RBC % Seg Neutrophils # Seg Neutrophils # Man Lymphocytes # (Manual) Monocytes # (Manual) PT INR D-Dimer Heparin Anti-Xa Level POC ABG pH ABG pH 7.265 L POC ABG pCO2 POC ABG pO2 ABG pO2 35.4 L* ABG HCO3 ABG O2 Saturation 54.4 L ABG Base Excess -6.7 L ABG Hemoglobin 12.9 L Oxyhemoglobin 53.4 L Sodium 132 L Potassium 5.7 H Chloride 89.8 L Carbon Dioxide 19 L BUN 62 H Creatinine 6.4 H Glucose 151 H POC Glucose Lactic Acid Calcium 5.2 L* D Ionized Calcium Phosphorus Magnesium Iron TIBC Ferritin Total Bilirubin 7.80 H Direct Bilirubin AST 682 H ALT 130 H Alkaline Phosphatase 167 H Total Creatine Kinase CK-MB (CK-2) Troponin T C-Reactive Protein Total Protein 4.8 L Albumin 2.3 L Triglycerides LDL Cholesterol Direct HDL Cholesterol Free T4 PTH Intact Urine WBC (Auto) Urine Creatinine Salicylates Acetaminophen Crossmatch 03/19/19 03/19/19 03/19/19 05:49 09:16 09:50 WBC RBC Hgb Hct MCV MCHC RDW Plt Count Lymph % (Auto) [place] % (Auto) Lymph # [place] # Seg Neutrophils % Seg Neuts % (Manual) Lymphocytes % (Manual) Monocytes % (Manual) Nucleated RBC % Seg Neutrophils # Seg Neutrophils # Man Lymphocytes # (Manual) Monocytes # (Manual) PT INR D-Dimer Heparin Anti-Xa Level POC ABG pH 7.222 L ABG pH POC ABG pCO2 56.6 H POC ABG pO2 ABG pO2 ABG HCO3 ABG O2 Saturation ABG Base Excess ABG Hemoglobin Oxyhemoglobin Sodium Potassium Chloride Carbon Dioxide BUN Creatinine Glucose POC Glucose 154 H Lactic Acid 2.70 H* Calcium Ionized Calcium Phosphorus Magnesium Iron TIBC Ferritin Total Bilirubin Direct Bilirubin AST ALT Alkaline Phosphatase Total Creatine Kinase CK-MB (CK-2) Troponin T C-Reactive Protein Total Protein Albumin Triglycerides LDL Cholesterol Direct HDL Cholesterol Free T4 PTH Intact Urine WBC (Auto) Urine Creatinine Salicylates Acetaminophen Crossmatch 03/19/19 03/19/19 03/19/19 09:50 11:28 17:58 WBC RBC Hgb Hct MCV MCHC RDW Plt Count Lymph % (Auto) [place] % (Auto) Lymph # [place] # Seg Neutrophils % Seg Neuts % (Manual) Lymphocytes % (Manual) Monocytes % (Manual) Nucleated RBC % Seg Neutrophils # Seg Neutrophils # Man Lymphocytes # (Manual) Monocytes # (Manual) PT INR D-Dimer Heparin Anti-Xa Level POC ABG pH 7.250 L ABG pH POC ABG pCO2 52.6 H POC ABG pO2 ABG pO2 ABG HCO3 ABG O2 Saturation ABG Base Excess ABG Hemoglobin Oxyhemoglobin Sodium Potassium Chloride Carbon Dioxide BUN Creatinine Glucose POC Glucose 160 H Lactic Acid Calcium Ionized Calcium Phosphorus Magnesium Iron TIBC Ferritin Total Bilirubin Direct Bilirubin AST ALT Alkaline Phosphatase Total Creatine Kinase 85854 H CK-MB (CK-2) Troponin T C-Reactive Protein Total Protein Albumin Triglycerides LDL Cholesterol Direct HDL Cholesterol Free T4 PTH Intact Urine WBC (Auto) Urine Creatinine Salicylates Acetaminophen Crossmatch 03/19/19 03/19/19 03/20/19 19:48 21:03 02:16 WBC RBC Hgb Hct MCV MCHC RDW Plt Count Lymph % (Auto) [place] % (Auto) Lymph # [place] # Seg Neutrophils % Seg Neuts % (Manual) Lymphocytes % (Manual) Monocytes % (Manual) Nucleated RBC % Seg Neutrophils # Seg Neutrophils # Man Lymphocytes # (Manual) Monocytes # (Manual) PT INR D-Dimer Heparin Anti-Xa Level POC ABG pH 7.279 L ABG pH POC ABG pCO2 50.3 H POC ABG pO2 129 H ABG pO2 ABG HCO3 ABG O2 Saturation ABG Base Excess ABG Hemoglobin Oxyhemoglobin Sodium Potassium Chloride Carbon Dioxide BUN Creatinine Glucose POC Glucose 119 H 119 H Lactic Acid Calcium Ionized Calcium Phosphorus Magnesium Iron TIBC Ferritin Total Bilirubin Direct Bilirubin AST ALT Alkaline Phosphatase Total Creatine Kinase CK-MB (CK-2) Troponin T C-Reactive Protein Total Protein Albumin Triglycerides LDL Cholesterol Direct HDL Cholesterol Free T4 PTH Intact Urine WBC (Auto) Urine Creatinine Salicylates Acetaminophen Crossmatch 03/20/19 03/20/19 03/20/19 04:23 05:05 09:30 WBC 36.3 H RBC Hgb Hct MCV MCHC RDW 15.5 H Plt Count 29 L Lymph % (Auto) [place] % (Auto) Lymph # [place] # Seg Neutrophils % Seg Neuts % (Manual) Lymphocytes % (Manual) Monocytes % (Manual) Nucleated RBC % Seg Neutrophils # Seg Neutrophils # Man Lymphocytes # (Manual) Monocytes # (Manual) PT INR D-Dimer Heparin Anti-Xa Level POC ABG pH ABG pH POC ABG pCO2 POC ABG pO2 280 H ABG pO2 ABG HCO3 ABG O2 Saturation ABG Base Excess ABG Hemoglobin Oxyhemoglobin Sodium Potassium Chloride Carbon Dioxide BUN Creatinine Glucose POC Glucose 115 H Lactic Acid Calcium Ionized Calcium Phosphorus Magnesium Iron TIBC Ferritin Total Bilirubin Direct Bilirubin AST ALT Alkaline Phosphatase Total Creatine Kinase CK-MB (CK-2) Troponin T C-Reactive Protein Total Protein Albumin Triglycerides LDL Cholesterol Direct HDL Cholesterol Free T4 PTH Intact Urine WBC (Auto) Urine Creatinine Salicylates Acetaminophen Crossmatch 03/20/19 03/20/19 03/20/19 09:30 09:30 11:34 WBC RBC Hgb Hct MCV MCHC RDW Plt Count Lymph % (Auto) [place] % (Auto) Lymph # [place] # Seg Neutrophils % Seg Neuts % (Manual) Lymphocytes % (Manual) Monocytes % (Manual) Nucleated RBC % Seg Neutrophils # Seg Neutrophils # Man Lymphocytes # (Manual) Monocytes # (Manual) PT INR D-Dimer Heparin Anti-Xa Level POC ABG pH ABG pH POC ABG pCO2 POC ABG pO2 ABG pO2 ABG HCO3 ABG O2 Saturation ABG Base Excess ABG Hemoglobin Oxyhemoglobin Sodium 131 L Potassium Chloride 92.3 L Carbon Dioxide 20 L BUN 68 H Creatinine 6.1 H Glucose 164 H POC Glucose 141 H Lactic Acid Calcium 5.3 L* Ionized Calcium Phosphorus Magnesium Iron TIBC Ferritin Total Bilirubin 9.50 H Direct Bilirubin AST 381 H ALT 116 H Alkaline Phosphatase 255 H Total Creatine Kinase 30983 H CK-MB (CK-2) Troponin T C-Reactive Protein Total Protein 5.1 L Albumin 2.3 L Triglycerides LDL Cholesterol Direct HDL Cholesterol Free T4 PTH Intact Urine WBC (Auto) Urine Creatinine Salicylates Acetaminophen Crossmatch 03/20/19 03/20/19 03/20/19 14:41 14:45 18:50 WBC RBC Hgb Hct MCV MCHC RDW Plt Count Lymph % (Auto) [place] % (Auto) Lymph # [place] # Seg Neutrophils % Seg Neuts % (Manual) Lymphocytes % (Manual) Monocytes % (Manual) Nucleated RBC % Seg Neutrophils # Seg Neutrophils # Man Lymphocytes # (Manual) Monocytes # (Manual) PT INR D-Dimer Heparin Anti-Xa Level POC ABG pH ABG pH POC ABG pCO2 POC ABG pO2 ABG pO2 ABG HCO3 ABG O2 Saturation ABG Base Excess ABG Hemoglobin Oxyhemoglobin Sodium Potassium Chloride Carbon Dioxide BUN Creatinine Glucose POC Glucose 117 H Lactic Acid 2.90 H* Calcium Ionized Calcium Phosphorus Magnesium Iron TIBC Ferritin Total Bilirubin Direct Bilirubin AST ALT Alkaline Phosphatase Total Creatine Kinase CK-MB (CK-2) Troponin T C-Reactive Protein 13.30 H Total Protein Albumin Triglycerides LDL Cholesterol Direct HDL Cholesterol Free T4 PTH Intact Urine WBC (Auto) Urine Creatinine Salicylates Acetaminophen Crossmatch 03/20/19 03/21/19 03/21/19 21:55 04:26 04:26 WBC 37.8 H RBC Hgb Hct MCV MCHC RDW 15.4 H Plt Count 36 L Lymph % (Auto) [place] % (Auto) Lymph # [place] # Seg Neutrophils % Seg Neuts % (Manual) 93.0 H Lymphocytes % (Manual) 3.0 L Monocytes % (Manual) Nucleated RBC % 1.0 H Seg Neutrophils # 34.6 H Seg Neutrophils # Man 35.2 H Lymphocytes # (Manual) 1.1 L Monocytes # (Manual) PT INR D-Dimer Heparin Anti-Xa Level POC ABG pH ABG pH POC ABG pCO2 POC ABG pO2 ABG pO2 ABG HCO3 ABG O2 Saturation ABG Base Excess ABG Hemoglobin Oxyhemoglobin Sodium 131 L Potassium Chloride 90.7 L Carbon Dioxide 21 L BUN 69 H Creatinine 5.7 H Glucose 170 H POC Glucose 128 H Lactic Acid Calcium 6.1 L D Ionized Calcium Phosphorus Magnesium Iron TIBC Ferritin Total Bilirubin 9.50 H Direct Bilirubin AST 308 H ALT 124 H Alkaline Phosphatase 327 H Total Creatine Kinase 53704 H CK-MB (CK-2) Troponin T C-Reactive Protein Total Protein 5.7 L Albumin 2.6 L Triglycerides LDL Cholesterol Direct HDL Cholesterol Free T4 PTH Intact Urine WBC (Auto) Urine Creatinine Salicylates Acetaminophen Crossmatch 03/21/19 03/21/19 03/21/19 05:17 05:39 08:29 WBC RBC Hgb Hct MCV MCHC RDW Plt Count Lymph % (Auto) [place] % (Auto) Lymph # [place] # Seg Neutrophils % Seg Neuts % (Manual) Lymphocytes % (Manual) Monocytes % (Manual) Nucleated RBC % Seg Neutrophils # Seg Neutrophils # Man Lymphocytes # (Manual) Monocytes # (Manual) PT INR D-Dimer Heparin Anti-Xa Level POC ABG pH ABG pH POC ABG pCO2 POC ABG pO2 209 H ABG pO2 ABG HCO3 ABG O2 Saturation ABG Base Excess ABG Hemoglobin Oxyhemoglobin Sodium Potassium Chloride Carbon Dioxide BUN Creatinine Glucose POC Glucose 145 H Lactic Acid Calcium Ionized Calcium Phosphorus Magnesium Iron TIBC Ferritin Total Bilirubin Direct Bilirubin AST ALT Alkaline Phosphatase Total Creatine Kinase 59920 H CK-MB (CK-2) Troponin T C-Reactive Protein Total Protein Albumin Triglycerides LDL Cholesterol Direct HDL Cholesterol Free T4 PTH Intact Urine WBC (Auto) Urine Creatinine Salicylates Acetaminophen Crossmatch 03/21/19 03/21/19 03/21/19 08:29 11:43 12:00 WBC RBC Hgb Hct MCV MCHC RDW Plt Count Lymph % (Auto) [place] % (Auto) Lymph # [place] # Seg Neutrophils % Seg Neuts % (Manual) Lymphocytes % (Manual) Monocytes % (Manual) Nucleated RBC % Seg Neutrophils # Seg Neutrophils # Man Lymphocytes # (Manual) Monocytes # (Manual) PT INR D-Dimer Heparin Anti-Xa Level POC ABG pH ABG pH POC ABG pCO2 POC ABG pO2 ABG pO2 ABG HCO3 ABG O2 Saturation ABG Base Excess ABG Hemoglobin Oxyhemoglobin Sodium Potassium Chloride Carbon Dioxide BUN Creatinine Glucose POC Glucose 123 H Lactic Acid 2.60 H* 2.20 H* Calcium Ionized Calcium Phosphorus Magnesium Iron TIBC Ferritin Total Bilirubin Direct Bilirubin AST ALT Alkaline Phosphatase Total Creatine Kinase CK-MB (CK-2) Troponin T C-Reactive Protein Total Protein Albumin Triglycerides LDL Cholesterol Direct HDL Cholesterol Free T4 PTH Intact Urine WBC (Auto) Urine Creatinine Salicylates Acetaminophen Crossmatch 03/21/19 03/21/19 03/21/19 14:11 18:28 19:32 WBC RBC Hgb Hct MCV MCHC RDW Plt Count Lymph % (Auto) [place] % (Auto) Lymph # [place] # Seg Neutrophils % Seg Neuts % (Manual) Lymphocytes % (Manual) Monocytes % (Manual) Nucleated RBC % Seg Neutrophils # Seg Neutrophils # Man Lymphocytes # (Manual) Monocytes # (Manual) PT INR D-Dimer Heparin Anti-Xa Level POC ABG pH 7.293 L ABG pH POC ABG pCO2 POC ABG pO2 ABG pO2 ABG HCO3 ABG O2 Saturation ABG Base Excess ABG Hemoglobin Oxyhemoglobin Sodium Potassium Chloride Carbon Dioxide BUN Creatinine Glucose POC Glucose 153 H Lactic Acid 2.10 H* Calcium Ionized Calcium Phosphorus Magnesium Iron TIBC Ferritin Total Bilirubin Direct Bilirubin AST ALT Alkaline Phosphatase Total Creatine Kinase CK-MB (CK-2) Troponin T C-Reactive Protein Total Protein Albumin Triglycerides LDL Cholesterol Direct HDL Cholesterol Free T4 PTH Intact Urine WBC (Auto) Urine Creatinine Salicylates Acetaminophen Crossmatch 03/21/19 03/22/19 03/22/19 23:38 05:08 05:51 WBC RBC Hgb Hct MCV MCHC RDW Plt Count Lymph % (Auto) [place] % (Auto) Lymph # [place] # Seg Neutrophils % Seg Neuts % (Manual) Lymphocytes % (Manual) Monocytes % (Manual) Nucleated RBC % Seg Neutrophils # Seg Neutrophils # Man Lymphocytes # (Manual) Monocytes # (Manual) PT INR D-Dimer Heparin Anti-Xa Level POC ABG pH 7.283 L ABG pH POC ABG pCO2 POC ABG pO2 53 L ABG pO2 ABG HCO3 ABG O2 Saturation ABG Base Excess ABG Hemoglobin Oxyhemoglobin Sodium Potassium Chloride Carbon Dioxide BUN Creatinine Glucose POC Glucose 149 H 131 H Lactic Acid Calcium Ionized Calcium Phosphorus Magnesium Iron TIBC Ferritin Total Bilirubin Direct Bilirubin AST ALT Alkaline Phosphatase Total Creatine Kinase CK-MB (CK-2) Troponin T C-Reactive Protein Total Protein Albumin Triglycerides LDL Cholesterol Direct HDL Cholesterol Free T4 PTH Intact Urine WBC (Auto) Urine Creatinine Salicylates Acetaminophen Crossmatch 03/22/19 03/22/19 03/22/19 08:00 08:00 18:19 WBC 36.7 H RBC Hgb 11.0 L Hct 33.5 L MCV MCHC RDW 15.5 H Plt Count 43 L Lymph % (Auto) [place] % (Auto) Lymph # [place] # Seg Neutrophils % Seg Neuts % (Manual) 87.0 H Lymphocytes % (Manual) 7.0 L Monocytes % (Manual) Nucleated RBC % Seg Neutrophils # Seg Neutrophils # Man 31.9 H Lymphocytes # (Manual) Monocytes # (Manual) PT INR D-Dimer Heparin Anti-Xa Level POC ABG pH ABG pH POC ABG pCO2 46.4 H POC ABG pO2 108 H ABG pO2 ABG HCO3 ABG O2 Saturation ABG Base Excess ABG Hemoglobin Oxyhemoglobin Sodium 132 L Potassium 5.6 H Chloride 89.6 L Carbon Dioxide 20 L BUN 101 H Creatinine 7.4 H Glucose 124 H POC Glucose Lactic Acid Calcium 5.2 L* Ionized Calcium Phosphorus Magnesium Iron TIBC Ferritin Total Bilirubin 2.80 H Direct Bilirubin AST 119 H ALT 86 H Alkaline Phosphatase 245 H Total Creatine Kinase CK-MB (CK-2) Troponin T C-Reactive Protein Total Protein 5.6 L Albumin 2.5 L Triglycerides LDL Cholesterol Direct HDL Cholesterol Free T4 PTH Intact Urine WBC (Auto) Urine Creatinine Salicylates Acetaminophen Crossmatch 03/22/19 03/23/19 03/23/19 20:37 04:49 05:28 WBC 35.9 H RBC Hgb 10.8 L Hct 33.2 L MCV MCHC RDW 15.5 H Plt Count 49 L Lymph % (Auto) [place] % (Auto) Lymph # [place] # Seg Neutrophils % Seg Neuts % (Manual) 81.0 H Lymphocytes % (Manual) 3.5 L Monocytes % (Manual) Nucleated RBC % Seg Neutrophils # Seg Neutrophils # Man 29.1 H Lymphocytes # (Manual) Monocytes # (Manual) 1.4 H PT INR D-Dimer Heparin Anti-Xa Level POC ABG pH 7.296 L ABG pH POC ABG pCO2 46.2 H POC ABG pO2 ABG pO2 ABG HCO3 ABG O2 Saturation ABG Base Excess ABG Hemoglobin Oxyhemoglobin Sodium 129 L Potassium 5.2 H Chloride 91.1 L Carbon Dioxide BUN 91 H Creatinine 6.6 H Glucose 190 H POC Glucose Lactic Acid Calcium 5.3 L* Ionized Calcium Phosphorus Magnesium Iron TIBC Ferritin Total Bilirubin 1.80 H Direct Bilirubin AST 80 H ALT 62 H Alkaline Phosphatase 209 H Total Creatine Kinase 9758 H CK-MB (CK-2) Troponin T C-Reactive Protein Total Protein 5.2 L Albumin 2.2 L Triglycerides LDL Cholesterol Direct HDL Cholesterol Free T4 PTH Intact Urine WBC (Auto) Urine Creatinine Salicylates Acetaminophen Crossmatch 03/23/19 03/23/19 03/23/19 05:28 05:31 11:33 WBC 29.7 H RBC 3.59 L Hgb 10.1 L Hct 31.1 L MCV MCHC RDW 15.4 H Plt Count 47 L Lymph % (Auto) [place] % (Auto) Lymph # [place] # Seg Neutrophils % Seg Neuts % (Manual) 89.0 H Lymphocytes % (Manual) 6.0 L Monocytes % (Manual) Nucleated RBC % 1.0 H Seg Neutrophils # Seg Neutrophils # Man 26.4 H Lymphocytes # (Manual) Monocytes # (Manual) PT INR D-Dimer Heparin Anti-Xa Level POC ABG pH ABG pH POC ABG pCO2 POC ABG pO2 ABG pO2 ABG HCO3 ABG O2 Saturation ABG Base Excess ABG Hemoglobin Oxyhemoglobin Sodium Potassium Chloride Carbon Dioxide BUN Creatinine Glucose POC Glucose 122 H 113 H Lactic Acid Calcium Ionized Calcium Phosphorus Magnesium Iron TIBC Ferritin Total Bilirubin Direct Bilirubin AST ALT Alkaline Phosphatase Total Creatine Kinase CK-MB (CK-2) Troponin T C-Reactive Protein Total Protein Albumin Triglycerides LDL Cholesterol Direct HDL Cholesterol Free T4 PTH Intact Urine WBC (Auto) Urine Creatinine Salicylates Acetaminophen Crossmatch 03/23/19 03/24/19 03/24/19 17:47 00:00 04:50 WBC 35.0 H RBC Hgb 10.4 L Hct 32.4 L MCV MCHC RDW Plt Count 60 L Lymph % (Auto) [place] % (Auto) Lymph # [place] # Seg Neutrophils % Seg Neuts % (Manual) 93.0 H Lymphocytes % (Manual) 5.0 L Monocytes % (Manual) Nucleated RBC % 7.0 H Seg Neutrophils # Seg Neutrophils # Man 32.6 H Lymphocytes # (Manual) Monocytes # (Manual) PT INR D-Dimer Heparin Anti-Xa Level POC ABG pH ABG pH POC ABG pCO2 POC ABG pO2 ABG pO2 ABG HCO3 ABG O2 Saturation ABG Base Excess ABG Hemoglobin Oxyhemoglobin Sodium Potassium Chloride Carbon Dioxide BUN Creatinine Glucose POC Glucose 111 H 108 H Lactic Acid Calcium Ionized Calcium Phosphorus Magnesium Iron TIBC Ferritin Total Bilirubin Direct Bilirubin AST ALT Alkaline Phosphatase Total Creatine Kinase CK-MB (CK-2) Troponin T C-Reactive Protein Total Protein Albumin Triglycerides LDL Cholesterol Direct HDL Cholesterol Free T4 PTH Intact Urine WBC (Auto) Urine Creatinine Salicylates Acetaminophen Crossmatch 03/24/19 03/24/19 03/24/19 04:50 05:06 12:55 WBC RBC Hgb Hct MCV MCHC RDW Plt Count Lymph % (Auto) [place] % (Auto) Lymph # [place] # Seg Neutrophils % Seg Neuts % (Manual) Lymphocytes % (Manual) Monocytes % (Manual) Nucleated RBC % Seg Neutrophils # Seg Neutrophils # Man Lymphocytes # (Manual) Monocytes # (Manual) PT INR D-Dimer Heparin Anti-Xa Level POC ABG pH ABG pH POC ABG pCO2 POC ABG pO2 ABG pO2 ABG HCO3 ABG O2 Saturation ABG Base Excess ABG Hemoglobin Oxyhemoglobin Sodium 134 L Potassium 5.1 H Chloride 95.3 L Carbon Dioxide 21 L BUN 85 H Creatinine 6.4 H Glucose 109 H POC Glucose 112 H 110 H Lactic Acid Calcium 5.8 L* Ionized Calcium Phosphorus Magnesium Iron TIBC Ferritin Total Bilirubin Direct Bilirubin AST ALT Alkaline Phosphatase Total Creatine Kinase 5747 H CK-MB (CK-2) Troponin T C-Reactive Protein Total Protein Albumin Triglycerides LDL Cholesterol Direct HDL Cholesterol Free T4 PTH Intact Urine WBC (Auto) Urine Creatinine Salicylates Acetaminophen Crossmatch 03/24/19 03/25/19 03/25/19 23:29 05:00 05:00 WBC RBC Hgb Hct MCV MCHC RDW Plt Count Lymph % (Auto) [place] % (Auto) Lymph # [place] # Seg Neutrophils % Seg Neuts % (Manual) Lymphocytes % (Manual) Monocytes % (Manual) Nucleated RBC % Seg Neutrophils # Seg Neutrophils # Man Lymphocytes # (Manual) Monocytes # (Manual) PT INR D-Dimer Heparin Anti-Xa Level POC ABG pH ABG pH POC ABG pCO2 POC ABG pO2 ABG pO2 ABG HCO3 ABG O2 Saturation ABG Base Excess ABG Hemoglobin Oxyhemoglobin Sodium 133 L Potassium Chloride 94.0 L Carbon Dioxide 21 L BUN 81 H Creatinine 6.4 H Glucose POC Glucose 109 H Lactic Acid Calcium 5.5 L* Ionized Calcium Phosphorus Magnesium Iron TIBC Ferritin Total Bilirubin Direct Bilirubin AST 80 H ALT Alkaline Phosphatase 202 H Total Creatine Kinase 3589 H CK-MB (CK-2) Troponin T C-Reactive Protein Total Protein 5.3 L Albumin 2.4 L Triglycerides LDL Cholesterol Direct HDL Cholesterol Free T4 PTH Intact 329.9 H Urine WBC (Auto) Urine Creatinine Salicylates Acetaminophen Crossmatch 03/25/19 03/25/19 03/26/19 05:00 06:30 04:30 WBC 23.3 H RBC 3.61 L Hgb 10.2 L Hct 31.2 L MCV MCHC RDW Plt Count 57 L Lymph % (Auto) [place] % (Auto) Lymph # [place] # Seg Neutrophils % Seg Neuts % (Manual) 92.0 H Lymphocytes % (Manual) 6.0 L Monocytes % (Manual) Nucleated RBC % Seg Neutrophils # Seg Neutrophils # Man 21.4 H Lymphocytes # (Manual) Monocytes # (Manual) PT INR D-Dimer Heparin Anti-Xa Level POC ABG pH ABG pH 7.326 L POC ABG pCO2 POC ABG pO2 ABG pO2 109.5 H 137.4 H ABG HCO3 18.8 L 18.6 L ABG O2 Saturation ABG Base Excess -4.4 L -6.8 L ABG Hemoglobin 10.1 L 9.9 L Oxyhemoglobin Sodium Potassium Chloride Carbon Dioxide BUN Creatinine Glucose POC Glucose Lactic Acid Calcium Ionized Calcium Phosphorus Magnesium Iron TIBC Ferritin Total Bilirubin Direct Bilirubin AST ALT Alkaline Phosphatase Total Creatine Kinase CK-MB (CK-2) Troponin T C-Reactive Protein Total Protein Albumin Triglycerides LDL Cholesterol Direct HDL Cholesterol Free T4 PTH Intact Urine WBC (Auto) Urine Creatinine Salicylates Acetaminophen Crossmatch 03/26/19 03/26/19 03/26/19 23:22 Unknown Unknown WBC 19.5 H RBC 3.44 L Hgb 9.8 L Hct 29.9 L MCV MCHC RDW Plt Count 85 L Lymph % (Auto) [place] % (Auto) Lymph # [place] # Seg Neutrophils % Seg Neuts % (Manual) 95.0 H Lymphocytes % (Manual) 3.0 L Monocytes % (Manual) Nucleated RBC % Seg Neutrophils # Seg Neutrophils # Man 18.5 H Lymphocytes # (Manual) 0.6 L Monocytes # (Manual) PT INR D-Dimer Heparin Anti-Xa Level POC ABG pH ABG pH POC ABG pCO2 POC ABG pO2 ABG pO2 ABG HCO3 ABG O2 Saturation ABG Base Excess ABG Hemoglobin Oxyhemoglobin Sodium 135 L Potassium 5.2 H D Chloride 92.2 L Carbon Dioxide 18 L BUN 109 H Creatinine 8.5 H Glucose 117 H POC Glucose 69 L Lactic Acid Calcium 4.5 L* D Ionized Calcium Phosphorus Magnesium Iron TIBC Ferritin Total Bilirubin Direct Bilirubin AST ALT Alkaline Phosphatase Total Creatine Kinase 4527 H CK-MB (CK-2) Troponin T C-Reactive Protein Total Protein Albumin Triglycerides LDL Cholesterol Direct HDL Cholesterol Free T4 PTH Intact Urine WBC (Auto) Urine Creatinine Salicylates Acetaminophen Crossmatch 03/27/19 03/27/19 03/27/19 04:30 04:30 09:00 WBC 19.2 H RBC 3.42 L Hgb 9.9 L Hct 30.0 L MCV MCHC RDW Plt Count 84 L Lymph % (Auto) [place] % (Auto) Lymph # [place] # Seg Neutrophils % Seg Neuts % (Manual) Lymphocytes % (Manual) Monocytes % (Manual) Nucleated RBC % Seg Neutrophils # Seg Neutrophils # Man Lymphocytes # (Manual) Monocytes # (Manual) PT INR D-Dimer Heparin Anti-Xa Level POC ABG pH ABG pH POC ABG pCO2 POC ABG pO2 ABG pO2 ABG HCO3 ABG O2 Saturation ABG Base Excess ABG Hemoglobin Oxyhemoglobin Sodium 135 L Potassium Chloride 93.5 L Carbon Dioxide BUN 84 H Creatinine 7.1 H Glucose POC Glucose Lactic Acid Calcium 5.0 L* Ionized Calcium Phosphorus Magnesium Iron TIBC Ferritin Total Bilirubin Direct Bilirubin AST 78 H ALT Alkaline Phosphatase 135 H Total Creatine Kinase 4677 H CK-MB (CK-2) Troponin T C-Reactive Protein Total Protein 4.8 L Albumin 2.3 L Triglycerides 409 H LDL Cholesterol Direct HDL Cholesterol Free T4 PTH Intact Urine WBC (Auto) Urine Creatinine Salicylates Acetaminophen Crossmatch 03/27/19 03/27/19 03/27/19 12:37 14:15 14:15 WBC RBC Hgb 9.7 L Hct 29.5 L MCV MCHC RDW Plt Count 87 L Lymph % (Auto) [place] % (Auto) Lymph # [place] # Seg Neutrophils % Seg Neuts % (Manual) Lymphocytes % (Manual) Monocytes % (Manual) Nucleated RBC % Seg Neutrophils # Seg Neutrophils # Man Lymphocytes # (Manual) Monocytes # (Manual) PT 15.9 H INR 1.30 H D-Dimer Heparin Anti-Xa Level POC ABG pH ABG pH POC ABG pCO2 POC ABG pO2 ABG pO2 ABG HCO3 ABG O2 Saturation ABG Base Excess ABG Hemoglobin Oxyhemoglobin Sodium Potassium Chloride Carbon Dioxide BUN Creatinine Glucose POC Glucose 129 H Lactic Acid Calcium Ionized Calcium Phosphorus Magnesium Iron TIBC Ferritin Total Bilirubin Direct Bilirubin AST ALT Alkaline Phosphatase Total Creatine Kinase CK-MB (CK-2) Troponin T C-Reactive Protein Total Protein Albumin Triglycerides LDL Cholesterol Direct HDL Cholesterol Free T4 PTH Intact Urine WBC (Auto) Urine Creatinine Salicylates Acetaminophen Crossmatch 03/27/19 03/27/19 03/27/19 18:00 19:22 19:23 WBC RBC Hgb Hct MCV MCHC RDW Plt Count Lymph % (Auto) [place] % (Auto) Lymph # [place] # Seg Neutrophils % Seg Neuts % (Manual) Lymphocytes % (Manual) Monocytes % (Manual) Nucleated RBC % Seg Neutrophils # Seg Neutrophils # Man Lymphocytes # (Manual) Monocytes # (Manual) PT INR D-Dimer Heparin Anti-Xa Level < 0.10 L POC ABG pH ABG pH POC ABG pCO2 POC ABG pO2 ABG pO2 ABG HCO3 ABG O2 Saturation ABG Base Excess ABG Hemoglobin Oxyhemoglobin Sodium Potassium Chloride Carbon Dioxide BUN Creatinine Glucose POC Glucose 121 H Lactic Acid Calcium Ionized Calcium Phosphorus Magnesium Iron TIBC Ferritin Total Bilirubin Direct Bilirubin AST ALT Alkaline Phosphatase Total Creatine Kinase 4517 H CK-MB (CK-2) Troponin T C-Reactive Protein Total Protein Albumin Triglycerides LDL Cholesterol Direct HDL Cholesterol Free T4 PTH Intact Urine WBC (Auto) Urine Creatinine Salicylates Acetaminophen Crossmatch 03/27/19 03/27/19 03/28/19 22:10 23:52 03:49 WBC RBC Hgb Hct MCV MCHC RDW Plt Count Lymph % (Auto) [place] % (Auto) Lymph # [place] # Seg Neutrophils % Seg Neuts % (Manual) Lymphocytes % (Manual) Monocytes % (Manual) Nucleated RBC % Seg Neutrophils # Seg Neutrophils # Man Lymphocytes # (Manual) Monocytes # (Manual) PT INR D-Dimer Heparin Anti-Xa Level POC ABG pH 7.338 L ABG pH POC ABG pCO2 33.1 L POC ABG pO2 ABG pO2 ABG HCO3 ABG O2 Saturation ABG Base Excess ABG Hemoglobin Oxyhemoglobin Sodium Potassium Chloride Carbon Dioxide BUN Creatinine Glucose POC Glucose 113 H 117 H Lactic Acid Calcium Ionized Calcium Phosphorus Magnesium Iron TIBC Ferritin Total Bilirubin Direct Bilirubin AST ALT Alkaline Phosphatase Total Creatine Kinase CK-MB (CK-2) Troponin T C-Reactive Protein Total Protein Albumin Triglycerides LDL Cholesterol Direct HDL Cholesterol Free T4 PTH Intact Urine WBC (Auto) Urine Creatinine Salicylates Acetaminophen Crossmatch 03/28/19 03/28/19 03/28/19 05:13 05:13 06:18 WBC RBC Hgb Hct MCV MCHC RDW Plt Count Lymph % (Auto) [place] % (Auto) Lymph # [place] # Seg Neutrophils % Seg Neuts % (Manual) Lymphocytes % (Manual) Monocytes % (Manual) Nucleated RBC % Seg Neutrophils # Seg Neutrophils # Man Lymphocytes # (Manual) Monocytes # (Manual) PT INR D-Dimer Heparin Anti-Xa Level 0.23 L POC ABG pH ABG pH POC ABG pCO2 POC ABG pO2 ABG pO2 ABG HCO3 ABG O2 Saturation ABG Base Excess ABG Hemoglobin Oxyhemoglobin Sodium 135 L Potassium 5.5 H D Chloride 95.1 L Carbon Dioxide 16 L D BUN 129 H Creatinine 9.3 H Glucose 158 H POC Glucose 202 H Lactic Acid Calcium 4.0 L* D Ionized Calcium Phosphorus 12.40 H Magnesium Iron TIBC Ferritin Total Bilirubin Direct Bilirubin AST ALT Alkaline Phosphatase Total Creatine Kinase 4266 H CK-MB (CK-2) Troponin T C-Reactive Protein Total Protein Albumin Triglycerides LDL Cholesterol Direct HDL Cholesterol Free T4 PTH Intact Urine WBC (Auto) Urine Creatinine Salicylates Acetaminophen Crossmatch 03/28/19 03/28/19 03/28/19 08:25 10:00 12:00 WBC RBC Hgb 4.9 L* D Hct 15.4 L* D MCV MCHC RDW Plt Count Lymph % (Auto) [place] % (Auto) Lymph # [place] # Seg Neutrophils % Seg Neuts % (Manual) Lymphocytes % (Manual) Monocytes % (Manual) Nucleated RBC % Seg Neutrophils # Seg Neutrophils # Man Lymphocytes # (Manual) Monocytes # (Manual) PT 17.9 H INR 1.52 H D-Dimer 4845.98 H Heparin Anti-Xa Level POC ABG pH ABG pH POC ABG pCO2 POC ABG pO2 ABG pO2 ABG HCO3 ABG O2 Saturation ABG Base Excess ABG Hemoglobin Oxyhemoglobin Sodium Potassium Chloride Carbon Dioxide BUN Creatinine Glucose POC Glucose Lactic Acid Calcium Ionized Calcium Phosphorus Magnesium Iron TIBC Ferritin Total Bilirubin Direct Bilirubin AST ALT Alkaline Phosphatase Total Creatine Kinase CK-MB (CK-2) Troponin T C-Reactive Protein Total Protein Albumin Triglycerides LDL Cholesterol Direct HDL Cholesterol Free T4 PTH Intact Urine WBC (Auto) Urine Creatinine Salicylates Acetaminophen Crossmatch See Detail 03/28/19 03/28/19 03/28/19 12:28 14:10 17:43 WBC RBC Hgb 5.9 L* Hct 18.3 L* MCV MCHC RDW Plt Count Lymph % (Auto) [place] % (Auto) Lymph # [place] # Seg Neutrophils % Seg Neuts % (Manual) Lymphocytes % (Manual) Monocytes % (Manual) Nucleated RBC % Seg Neutrophils # Seg Neutrophils # Man Lymphocytes # (Manual) Monocytes # (Manual) PT INR D-Dimer Heparin Anti-Xa Level POC ABG pH ABG pH POC ABG pCO2 POC ABG pO2 ABG pO2 ABG HCO3 ABG O2 Saturation ABG Base Excess ABG Hemoglobin Oxyhemoglobin Sodium Potassium Chloride Carbon Dioxide BUN Creatinine Glucose POC Glucose 153 H 159 H Lactic Acid Calcium Ionized Calcium Phosphorus Magnesium Iron TIBC Ferritin Total Bilirubin Direct Bilirubin AST ALT Alkaline Phosphatase Total Creatine Kinase CK-MB (CK-2) Troponin T C-Reactive Protein Total Protein Albumin Triglycerides LDL Cholesterol Direct HDL Cholesterol Free T4 PTH Intact Urine WBC (Auto) Urine Creatinine Salicylates Acetaminophen Crossmatch 03/28/19 03/28/19 03/28/19 18:10 Unknown 23:59 WBC 24.8 H RBC 3.42 L Hgb 10.2 L D Hct 31.1 L D MCV MCHC RDW 15.4 H Plt Count 54 L Lymph % (Auto) [place] % (Auto) Lymph # [place] # Seg Neutrophils % Seg Neuts % (Manual) 91.0 H Lymphocytes % (Manual) 8.0 L Monocytes % (Manual) Nucleated RBC % Seg Neutrophils # Seg Neutrophils # Man 22.6 H Lymphocytes # (Manual) Monocytes # (Manual) PT INR D-Dimer Heparin Anti-Xa Level POC ABG pH ABG pH POC ABG pCO2 POC ABG pO2 ABG pO2 ABG HCO3 ABG O2 Saturation ABG Base Excess ABG Hemoglobin Oxyhemoglobin Sodium Potassium 5.7 H Chloride Carbon Dioxide BUN Creatinine Glucose POC Glucose 107 H Lactic Acid Calcium Ionized Calcium Phosphorus Magnesium Iron TIBC Ferritin Total Bilirubin Direct Bilirubin AST ALT Alkaline Phosphatase Total Creatine Kinase CK-MB (CK-2) Troponin T C-Reactive Protein Total Protein Albumin Triglycerides LDL Cholesterol Direct HDL Cholesterol Free T4 PTH Intact Urine WBC (Auto) Urine Creatinine Salicylates Acetaminophen Crossmatch 03/29/19 03/29/19 03/29/19 04:29 05:46 06:22 WBC RBC Hgb 8.6 L Hct 25.7 L MCV MCHC RDW Plt Count 93 L Lymph % (Auto) [place] % (Auto) Lymph # [place] # Seg Neutrophils % Seg Neuts % (Manual) Lymphocytes % (Manual) Monocytes % (Manual) Nucleated RBC % Seg Neutrophils # Seg Neutrophils # Man Lymphocytes # (Manual) Monocytes # (Manual) PT INR D-Dimer Heparin Anti-Xa Level POC ABG pH ABG pH POC ABG pCO2 32.2 L POC ABG pO2 ABG pO2 ABG HCO3 ABG O2 Saturation ABG Base Excess ABG Hemoglobin Oxyhemoglobin Sodium Potassium Chloride Carbon Dioxide BUN Creatinine Glucose POC Glucose 113 H Lactic Acid Calcium Ionized Calcium Phosphorus Magnesium Iron TIBC Ferritin Total Bilirubin Direct Bilirubin AST ALT Alkaline Phosphatase Total Creatine Kinase CK-MB (CK-2) Troponin T C-Reactive Protein Total Protein Albumin Triglycerides LDL Cholesterol Direct HDL Cholesterol Free T4 PTH Intact Urine WBC (Auto) Urine Creatinine Salicylates Acetaminophen Crossmatch 03/29/19 03/29/19 03/29/19 06:22 06:22 06:22 WBC 23.2 H RBC 2.91 L Hgb 8.6 L Hct 25.8 L MCV MCHC RDW Plt Count 91 L Lymph % (Auto) [place] % (Auto) Lymph # [place] # Seg Neutrophils % Seg Neuts % (Manual) Lymphocytes % (Manual) Monocytes % (Manual) Nucleated RBC % Seg Neutrophils # Seg Neutrophils # Man Lymphocytes # (Manual) Monocytes # (Manual) PT INR D-Dimer Heparin Anti-Xa Level POC ABG pH ABG pH POC ABG pCO2 POC ABG pO2 ABG pO2 ABG HCO3 ABG O2 Saturation ABG Base Excess ABG Hemoglobin Oxyhemoglobin Sodium 133 L Potassium Chloride 93.8 L Carbon Dioxide 18 L BUN 109 H Creatinine 7.4 H Glucose 124 H POC Glucose Lactic Acid Calcium 4.6 L* Ionized Calcium Phosphorus Magnesium Iron TIBC Ferritin Total Bilirubin Direct Bilirubin AST ALT Alkaline Phosphatase Total Creatine Kinase 3401 H CK-MB (CK-2) Troponin T C-Reactive Protein Total Protein Albumin Triglycerides 309 H LDL Cholesterol Direct HDL Cholesterol Free T4 PTH Intact Urine WBC (Auto) Urine Creatinine Salicylates Acetaminophen Crossmatch 03/29/19 03/29/19 03/29/19 11:48 11:48 18:24 WBC RBC Hgb 7.8 L Hct 23.2 L MCV MCHC RDW Plt Count Lymph % (Auto) [place] % (Auto) Lymph # [place] # Seg Neutrophils % Seg Neuts % (Manual) Lymphocytes % (Manual) Monocytes % (Manual) Nucleated RBC % Seg Neutrophils # Seg Neutrophils # Man Lymphocytes # (Manual) Monocytes # (Manual) PT 15.3 H INR 1.24 H D-Dimer Heparin Anti-Xa Level POC ABG pH ABG pH POC ABG pCO2 POC ABG pO2 ABG pO2 ABG HCO3 ABG O2 Saturation ABG Base Excess ABG Hemoglobin Oxyhemoglobin Sodium Potassium Chloride Carbon Dioxide BUN Creatinine Glucose POC Glucose 122 H Lactic Acid Calcium Ionized Calcium Phosphorus Magnesium Iron TIBC Ferritin Total Bilirubin Direct Bilirubin AST ALT Alkaline Phosphatase Total Creatine Kinase CK-MB (CK-2) Troponin T C-Reactive Protein Total Protein Albumin Triglycerides LDL Cholesterol Direct HDL Cholesterol Free T4 PTH Intact Urine WBC (Auto) Urine Creatinine Salicylates Acetaminophen Crossmatch 03/30/19 03/30/19 03/30/19 00:40 04:31 05:04 WBC RBC Hgb 7.6 L Hct 23.0 L MCV MCHC RDW Plt Count Lymph % (Auto) [place] % (Auto) Lymph # [place] # Seg Neutrophils % Seg Neuts % (Manual) Lymphocytes % (Manual) Monocytes % (Manual) Nucleated RBC % Seg Neutrophils # Seg Neutrophils # Man Lymphocytes # (Manual) Monocytes # (Manual) PT INR D-Dimer Heparin Anti-Xa Level POC ABG pH 7.346 L ABG pH POC ABG pCO2 POC ABG pO2 62 L ABG pO2 ABG HCO3 ABG O2 Saturation ABG Base Excess ABG Hemoglobin Oxyhemoglobin Sodium Potassium Chloride Carbon Dioxide BUN 79 H Creatinine 6.4 H Glucose POC Glucose Lactic Acid Calcium 6.1 L D Ionized Calcium Phosphorus Magnesium Iron TIBC Ferritin Total Bilirubin Direct Bilirubin AST ALT Alkaline Phosphatase Total Creatine Kinase CK-MB (CK-2) Troponin T C-Reactive Protein Total Protein Albumin Triglycerides LDL Cholesterol Direct HDL Cholesterol Free T4 PTH Intact Urine WBC (Auto) Urine Creatinine Salicylates Acetaminophen Crossmatch 03/30/19 03/30/19 03/30/19 08:45 12:09 22:43 WBC 14.3 H RBC 2.33 L Hgb 7.0 L 7.4 L Hct 21.0 L 22.3 L MCV MCHC RDW 15.6 H Plt Count 135 L Lymph % (Auto) [place] % (Auto) Lymph # [place] # Seg Neutrophils % Seg Neuts % (Manual) Lymphocytes % (Manual) Monocytes % (Manual) Nucleated RBC % Seg Neutrophils # Seg Neutrophils # Man Lymphocytes # (Manual) Monocytes # (Manual) PT INR D-Dimer Heparin Anti-Xa Level POC ABG pH ABG pH POC ABG pCO2 POC ABG pO2 ABG pO2 ABG HCO3 ABG O2 Saturation ABG Base Excess ABG Hemoglobin Oxyhemoglobin Sodium Potassium Chloride Carbon Dioxide BUN Creatinine Glucose POC Glucose Lactic Acid Calcium Ionized Calcium 3.7 L Phosphorus Magnesium Iron TIBC Ferritin Total Bilirubin Direct Bilirubin AST ALT Alkaline Phosphatase Total Creatine Kinase CK-MB (CK-2) Troponin T C-Reactive Protein Total Protein Albumin Triglycerides LDL Cholesterol Direct HDL Cholesterol Free T4 PTH Intact Urine WBC (Auto) Urine Creatinine Salicylates Acetaminophen Crossmatch 03/30/19 03/30/19 03/31/19 23:38 Unknown 04:44 WBC 11.5 H RBC 2.40 L Hgb 7.3 L Hct 21.9 L MCV MCHC RDW 15.4 H Plt Count Lymph % (Auto) 10.6 L [place] % (Auto) Lymph # [place] # Seg Neutrophils % 81.7 H Seg Neuts % (Manual) Lymphocytes % (Manual) Monocytes % (Manual) Nucleated RBC % Seg Neutrophils # 9.4 H Seg Neutrophils # Man Lymphocytes # (Manual) Monocytes # (Manual) PT INR D-Dimer Heparin Anti-Xa Level POC ABG pH ABG pH POC ABG pCO2 POC ABG pO2 ABG pO2 ABG HCO3 ABG O2 Saturation ABG Base Excess ABG Hemoglobin Oxyhemoglobin Sodium Potassium Chloride Carbon Dioxide BUN Creatinine Glucose POC Glucose 155 H Lactic Acid Calcium Ionized Calcium Phosphorus Magnesium Iron TIBC Ferritin Total Bilirubin Direct Bilirubin 0.4 H AST 63 H ALT Alkaline Phosphatase Total Creatine Kinase CK-MB (CK-2) Troponin T C-Reactive Protein Total Protein 4.9 L Albumin 2.2 L Triglycerides LDL Cholesterol Direct HDL Cholesterol Free T4 PTH Intact Urine WBC (Auto) Urine Creatinine Salicylates Acetaminophen Crossmatch 03/31/19 03/31/19 03/31/19 04:44 05:44 08:20 WBC RBC Hgb Hct MCV MCHC RDW Plt Count Lymph % (Auto) [place] % (Auto) Lymph # [place] # Seg Neutrophils % Seg Neuts % (Manual) Lymphocytes % (Manual) Monocytes % (Manual) Nucleated RBC % Seg Neutrophils # Seg Neutrophils # Man Lymphocytes # (Manual) Monocytes # (Manual) PT INR D-Dimer Heparin Anti-Xa Level POC ABG pH ABG pH POC ABG pCO2 53.5 H POC ABG pO2 62 L ABG pO2 ABG HCO3 ABG O2 Saturation ABG Base Excess ABG Hemoglobin Oxyhemoglobin Sodium 135 L Potassium Chloride 96.7 L Carbon Dioxide 19 L BUN 94 H Creatinine 7.8 H Glucose POC Glucose Lactic Acid Calcium 5.3 L* Ionized Calcium Phosphorus 8.20 H Magnesium Iron TIBC Ferritin Total Bilirubin Direct Bilirubin 0.4 H AST 60 H ALT Alkaline Phosphatase Total Creatine Kinase CK-MB (CK-2) Troponin T C-Reactive Protein Total Protein 4.8 L Albumin 2.1 L Triglycerides LDL Cholesterol Direct HDL Cholesterol Free T4 PTH Intact Urine WBC (Auto) Urine Creatinine Salicylates Acetaminophen Crossmatch 03/31/19 04/01/19 04/01/19 22:14 04:27 04:27 WBC RBC 2.60 L Hgb 8.0 L Hct 24.1 L MCV MCHC RDW 15.7 H Plt Count Lymph % (Auto) 7.9 L [place] % (Auto) Lymph # 0.7 L [place] # Seg Neutrophils % 83.6 H Seg Neuts % (Manual) Lymphocytes % (Manual) Monocytes % (Manual) Nucleated RBC % Seg Neutrophils # Seg Neutrophils # Man Lymphocytes # (Manual) Monocytes # (Manual) PT INR D-Dimer Heparin Anti-Xa Level POC ABG pH 7.286 L ABG pH POC ABG pCO2 54.7 H POC ABG pO2 179 H ABG pO2 ABG HCO3 ABG O2 Saturation ABG Base Excess ABG Hemoglobin Oxyhemoglobin Sodium Potassium Chloride Carbon Dioxide BUN 68 H Creatinine 6.6 H Glucose POC Glucose Lactic Acid Calcium 6.5 L D Ionized Calcium Phosphorus 7.30 H Magnesium Iron TIBC Ferritin Total Bilirubin Direct Bilirubin AST ALT Alkaline Phosphatase Total Creatine Kinase 1652 H CK-MB (CK-2) Troponin T C-Reactive Protein Total Protein Albumin Triglycerides LDL Cholesterol Direct HDL Cholesterol Free T4 PTH Intact Urine WBC (Auto) Urine Creatinine Salicylates Acetaminophen Crossmatch 04/01/19 04/01/19 04/01/19 05:14 05:37 18:37 WBC RBC Hgb Hct MCV MCHC RDW Plt Count Lymph % (Auto) [place] % (Auto) Lymph # [place] # Seg Neutrophils % Seg Neuts % (Manual) Lymphocytes % (Manual) Monocytes % (Manual) Nucleated RBC % Seg Neutrophils # Seg Neutrophils # Man Lymphocytes # (Manual) Monocytes # (Manual) PT INR D-Dimer Heparin Anti-Xa Level POC ABG pH 7.283 L ABG pH POC ABG pCO2 53.4 H POC ABG pO2 241 H ABG pO2 ABG HCO3 ABG O2 Saturation ABG Base Excess ABG Hemoglobin Oxyhemoglobin Sodium Potassium Chloride Carbon Dioxide BUN Creatinine Glucose POC Glucose 111 H 119 H Lactic Acid Calcium Ionized Calcium Phosphorus Magnesium Iron TIBC Ferritin Total Bilirubin Direct Bilirubin AST ALT Alkaline Phosphatase Total Creatine Kinase CK-MB (CK-2) Troponin T C-Reactive Protein Total Protein Albumin Triglycerides LDL Cholesterol Direct HDL Cholesterol Free T4 PTH Intact Urine WBC (Auto) Urine Creatinine Salicylates Acetaminophen Crossmatch 04/01/19 04/02/19 04/02/19 21:28 04:40 05:03 WBC RBC 2.36 L Hgb 7.2 L Hct 21.9 L MCV MCHC RDW 16.0 H Plt Count Lymph % (Auto) 10.8 L [place] % (Auto) Lymph # 0.8 L [place] # Seg Neutrophils % 80.3 H Seg Neuts % (Manual) Lymphocytes % (Manual) Monocytes % (Manual) Nucleated RBC % Seg Neutrophils # Seg Neutrophils # Man Lymphocytes # (Manual) Monocytes # (Manual) PT INR D-Dimer Heparin Anti-Xa Level POC ABG pH 7.299 L 7.300 L ABG pH POC ABG pCO2 48.2 H 45.2 H POC ABG pO2 133 H 107 H ABG pO2 ABG HCO3 ABG O2 Saturation ABG Base Excess ABG Hemoglobin Oxyhemoglobin Sodium Potassium Chloride Carbon Dioxide BUN Creatinine Glucose POC Glucose Lactic Acid Calcium Ionized Calcium Phosphorus Magnesium Iron TIBC Ferritin Total Bilirubin Direct Bilirubin AST ALT Alkaline Phosphatase Total Creatine Kinase CK-MB (CK-2) Troponin T C-Reactive Protein Total Protein Albumin Triglycerides LDL Cholesterol Direct HDL Cholesterol Free T4 PTH Intact Urine WBC (Auto) Urine Creatinine Salicylates Acetaminophen Crossmatch 04/02/19 04/02/19 04/02/19 05:03 05:03 12:15 WBC RBC Hgb 7.4 L Hct 22.6 L MCV MCHC RDW Plt Count Lymph % (Auto) [place] % (Auto) Lymph # [place] # Seg Neutrophils % Seg Neuts % (Manual) Lymphocytes % (Manual) Monocytes % (Manual) Nucleated RBC % Seg Neutrophils # Seg Neutrophils # Man Lymphocytes # (Manual) Monocytes # (Manual) PT INR D-Dimer Heparin Anti-Xa Level POC ABG pH ABG pH POC ABG pCO2 POC ABG pO2 ABG pO2 ABG HCO3 ABG O2 Saturation ABG Base Excess ABG Hemoglobin Oxyhemoglobin Sodium 136 L Potassium Chloride 97.8 L Carbon Dioxide 18 L BUN 82 H Creatinine 8.2 H Glucose POC Glucose Lactic Acid Calcium 6.7 L Ionized Calcium Phosphorus 7.50 H Magnesium Iron 26 L TIBC 138 L Ferritin 607.0 H Total Bilirubin Direct Bilirubin AST ALT Alkaline Phosphatase Total Creatine Kinase CK-MB (CK-2) Troponin T C-Reactive Protein Total Protein Albumin Triglycerides LDL Cholesterol Direct HDL Cholesterol Free T4 PTH Intact Urine WBC (Auto) Urine Creatinine Salicylates Acetaminophen Crossmatch 04/02/19 04/02/19 04/03/19 16:34 17:14 04:18 WBC RBC Hgb Hct MCV MCHC RDW Plt Count Lymph % (Auto) [place] % (Auto) Lymph # [place] # Seg Neutrophils % Seg Neuts % (Manual) Lymphocytes % (Manual) Monocytes % (Manual) Nucleated RBC % Seg Neutrophils # Seg Neutrophils # Man Lymphocytes # (Manual) Monocytes # (Manual) PT INR D-Dimer Heparin Anti-Xa Level POC ABG pH ABG pH POC ABG pCO2 POC ABG pO2 146 H ABG pO2 ABG HCO3 ABG O2 Saturation ABG Base Excess ABG Hemoglobin Oxyhemoglobin Sodium Potassium Chloride Carbon Dioxide BUN Creatinine Glucose POC Glucose 108 H Lactic Acid Calcium Ionized Calcium Phosphorus Magnesium Iron TIBC Ferritin Total Bilirubin Direct Bilirubin AST ALT Alkaline Phosphatase Total Creatine Kinase CK-MB (CK-2) Troponin T C-Reactive Protein Total Protein Albumin Triglycerides LDL Cholesterol Direct HDL Cholesterol Free T4 PTH Intact Urine WBC (Auto) Urine Creatinine Salicylates Acetaminophen Crossmatch See Detail 04/03/19 04/03/19 04/03/19 04:25 08:30 18:24 WBC RBC 2.40 L Hgb 7.3 L Hct 21.9 L MCV MCHC RDW Plt Count Lymph % (Auto) [place] % (Auto) 7.7 H Lymph # 0.9 L [place] # Seg Neutrophils % 74.6 H Seg Neuts % (Manual) Lymphocytes % (Manual) Monocytes % (Manual) Nucleated RBC % Seg Neutrophils # Seg Neutrophils # Man Lymphocytes # (Manual) Monocytes # (Manual) PT INR D-Dimer Heparin Anti-Xa Level POC ABG pH ABG pH POC ABG pCO2 POC ABG pO2 ABG pO2 ABG HCO3 ABG O2 Saturation ABG Base Excess ABG Hemoglobin Oxyhemoglobin Sodium 136 L Potassium Chloride 97.0 L Carbon Dioxide BUN 58 H Creatinine 7.3 H Glucose POC Glucose 106 H Lactic Acid Calcium 7.5 L Ionized Calcium Phosphorus 5.80 H D Magnesium Iron TIBC Ferritin Total Bilirubin Direct Bilirubin AST ALT Alkaline Phosphatase Total Creatine Kinase CK-MB (CK-2) Troponin T C-Reactive Protein Total Protein Albumin Triglycerides LDL Cholesterol Direct HDL Cholesterol Free T4 PTH Intact Urine WBC (Auto) Urine Creatinine Salicylates Acetaminophen Crossmatch 04/03/19 04/04/19 04/04/19 23:43 04:47 04:47 WBC RBC 2.72 L Hgb 8.3 L Hct 24.7 L MCV MCHC RDW 15.6 H Plt Count Lymph % (Auto) [place] % (Auto) 10.1 H Lymph # 0.8 L [place] # Seg Neutrophils % 71.4 H Seg Neuts % (Manual) Lymphocytes % (Manual) Monocytes % (Manual) Nucleated RBC % Seg Neutrophils # Seg Neutrophils # Man Lymphocytes # (Manual) Monocytes # (Manual) PT INR D-Dimer Heparin Anti-Xa Level POC ABG pH ABG pH POC ABG pCO2 POC ABG pO2 ABG pO2 123.8 H ABG HCO3 ABG O2 Saturation ABG Base Excess -3.0 L ABG Hemoglobin 7.9 L Oxyhemoglobin Sodium 134 L Potassium Chloride 97.9 L Carbon Dioxide BUN 64 H Creatinine 8.1 H Glucose POC Glucose Lactic Acid Calcium 7.2 L Ionized Calcium Phosphorus Magnesium Iron TIBC Ferritin Total Bilirubin Direct Bilirubin AST ALT Alkaline Phosphatase Total Creatine Kinase CK-MB (CK-2) Troponin T C-Reactive Protein Total Protein Albumin Triglycerides LDL Cholesterol Direct HDL Cholesterol Free T4 PTH Intact Urine WBC (Auto) Urine Creatinine Salicylates Acetaminophen Crossmatch 04/04/19 04/04/19 04/04/19 06:07 13:40 18:18 WBC RBC Hgb Hct MCV MCHC RDW Plt Count Lymph % (Auto) [place] % (Auto) Lymph # [place] # Seg Neutrophils % Seg Neuts % (Manual) Lymphocytes % (Manual) Monocytes % (Manual) Nucleated RBC % Seg Neutrophils # Seg Neutrophils # Man Lymphocytes # (Manual) Monocytes # (Manual) PT INR D-Dimer Heparin Anti-Xa Level POC ABG pH ABG pH POC ABG pCO2 POC ABG pO2 ABG pO2 95.9 H ABG HCO3 ABG O2 Saturation ABG Base Excess -3.0 L ABG Hemoglobin 8.5 L Oxyhemoglobin Sodium Potassium Chloride Carbon Dioxide BUN Creatinine Glucose POC Glucose 107 H 107 H Lactic Acid Calcium Ionized Calcium Phosphorus Magnesium Iron TIBC Ferritin Total Bilirubin Direct Bilirubin AST ALT Alkaline Phosphatase Total Creatine Kinase CK-MB (CK-2) Troponin T C-Reactive Protein Total Protein Albumin Triglycerides LDL Cholesterol Direct HDL Cholesterol Free T4 PTH Intact Urine WBC (Auto) Urine Creatinine Salicylates Acetaminophen Crossmatch 04/04/19 04/05/19 04/05/19 21:22 04:09 04:09 WBC RBC 2.76 L Hgb 8.4 L Hct 25.4 L MCV MCHC RDW 15.8 H Plt Count 133 L Lymph % (Auto) [place] % (Auto) 9.6 H Lymph # 0.7 L [place] # Seg Neutrophils % 72.6 H Seg Neuts % (Manual) Lymphocytes % (Manual) Monocytes % (Manual) Nucleated RBC % Seg Neutrophils # Seg Neutrophils # Man Lymphocytes # (Manual) Monocytes # (Manual) PT INR D-Dimer Heparin Anti-Xa Level POC ABG pH ABG pH POC ABG pCO2 47.2 H POC ABG pO2 137 H ABG pO2 ABG HCO3 ABG O2 Saturation ABG Base Excess ABG Hemoglobin Oxyhemoglobin Sodium 136 L Potassium Chloride Carbon Dioxide BUN 46 H Creatinine 6.7 H Glucose POC Glucose Lactic Acid Calcium 7.7 L Ionized Calcium Phosphorus Magnesium Iron TIBC Ferritin Total Bilirubin Direct Bilirubin AST ALT Alkaline Phosphatase Total Creatine Kinase CK-MB (CK-2) Troponin T C-Reactive Protein Total Protein Albumin Triglycerides LDL Cholesterol Direct HDL Cholesterol Free T4 PTH Intact Urine WBC (Auto) Urine Creatinine Salicylates Acetaminophen Crossmatch 04/05/19 04/05/19 04/05/19 05:28 06:14 16:50 WBC RBC Hgb Hct MCV MCHC RDW Plt Count Lymph % (Auto) [place] % (Auto) Lymph # [place] # Seg Neutrophils % Seg Neuts % (Manual) Lymphocytes % (Manual) Monocytes % (Manual) Nucleated RBC % Seg Neutrophils # Seg Neutrophils # Man Lymphocytes # (Manual) Monocytes # (Manual) PT INR D-Dimer Heparin Anti-Xa Level POC ABG pH ABG pH POC ABG pCO2 POC ABG pO2 67 L ABG pO2 ABG HCO3 ABG O2 Saturation ABG Base Excess ABG Hemoglobin Oxyhemoglobin Sodium Potassium Chloride Carbon Dioxide BUN Creatinine Glucose POC Glucose 108 H Lactic Acid Calcium Ionized Calcium Phosphorus Magnesium Iron TIBC Ferritin Total Bilirubin Direct Bilirubin AST ALT Alkaline Phosphatase Total Creatine Kinase CK-MB (CK-2) Troponin T C-Reactive Protein Total Protein Albumin Triglycerides LDL Cholesterol Direct HDL Cholesterol Free T4 PTH Intact Urine WBC (Auto) 40.0 H Urine Creatinine Salicylates Acetaminophen Crossmatch 04/05/19 04/06/19 04/06/19 17:22 00:13 04:44 WBC RBC 2.48 L Hgb 7.5 L Hct 22.9 L MCV MCHC RDW 16.0 H Plt Count 107 L Lymph % (Auto) [place] % (Auto) 10.7 H Lymph # 1.0 L [place] # Seg Neutrophils % Seg Neuts % (Manual) Lymphocytes % (Manual) Monocytes % (Manual) Nucleated RBC % Seg Neutrophils # Seg Neutrophils # Man Lymphocytes # (Manual) Monocytes # (Manual) PT INR D-Dimer Heparin Anti-Xa Level POC ABG pH ABG pH POC ABG pCO2 POC ABG pO2 ABG pO2 ABG HCO3 ABG O2 Saturation ABG Base Excess ABG Hemoglobin Oxyhemoglobin Sodium Potassium Chloride Carbon Dioxide BUN Creatinine Glucose POC Glucose 118 H 138 H Lactic Acid Calcium Ionized Calcium Phosphorus Magnesium Iron TIBC Ferritin Total Bilirubin Direct Bilirubin AST ALT Alkaline Phosphatase Total Creatine Kinase CK-MB (CK-2) Troponin T C-Reactive Protein Total Protein Albumin Triglycerides LDL Cholesterol Direct HDL Cholesterol Free T4 PTH Intact Urine WBC (Auto) Urine Creatinine Salicylates Acetaminophen Crossmatch 04/06/19 04/06/19 04/06/19 04:44 05:20 05:23 WBC RBC Hgb Hct MCV MCHC RDW Plt Count Lymph % (Auto) [place] % (Auto) Lymph # [place] # Seg Neutrophils % Seg Neuts % (Manual) Lymphocytes % (Manual) Monocytes % (Manual) Nucleated RBC % Seg Neutrophils # Seg Neutrophils # Man Lymphocytes # (Manual) Monocytes # (Manual) PT INR D-Dimer Heparin Anti-Xa Level POC ABG pH ABG pH POC ABG pCO2 POC ABG pO2 ABG pO2 104.0 H ABG HCO3 ABG O2 Saturation ABG Base Excess -2.1 L ABG Hemoglobin 7.3 L Oxyhemoglobin Sodium Potassium Chloride Carbon Dioxide BUN 64 H Creatinine 8.2 H Glucose 103 H POC Glucose 118 H Lactic Acid Calcium 7.3 L Ionized Calcium Phosphorus Magnesium Iron TIBC Ferritin Total Bilirubin Direct Bilirubin AST ALT Alkaline Phosphatase Total Creatine Kinase CK-MB (CK-2) Troponin T C-Reactive Protein Total Protein Albumin Triglycerides LDL Cholesterol Direct HDL Cholesterol Free T4 PTH Intact Urine WBC (Auto) Urine Creatinine Salicylates Acetaminophen Crossmatch 04/06/19 04/07/19 04/07/19 12:02 05:40 05:40 WBC RBC 2.59 L Hgb 7.9 L Hct 23.8 L MCV MCHC RDW 15.8 H Plt Count 89 L Lymph % (Auto) [place] % (Auto) 10.3 H Lymph # 1.1 L [place] # Seg Neutrophils % Seg Neuts % (Manual) Lymphocytes % (Manual) Monocytes % (Manual) Nucleated RBC % Seg Neutrophils # Seg Neutrophils # Man Lymphocytes # (Manual) Monocytes # (Manual) PT INR D-Dimer Heparin Anti-Xa Level POC ABG pH ABG pH POC ABG pCO2 POC ABG pO2 ABG pO2 ABG HCO3 ABG O2 Saturation ABG Base Excess ABG Hemoglobin Oxyhemoglobin Sodium 136 L Potassium 3.5 L Chloride Carbon Dioxide BUN 46 H Creatinine 6.2 H Glucose POC Glucose 108 H Lactic Acid Calcium 7.9 L Ionized Calcium Phosphorus Magnesium Iron TIBC Ferritin Total Bilirubin Direct Bilirubin AST ALT Alkaline Phosphatase Total Creatine Kinase CK-MB (CK-2) Troponin T C-Reactive Protein Total Protein Albumin Triglycerides LDL Cholesterol Direct HDL Cholesterol Free T4 PTH Intact Urine WBC (Auto) Urine Creatinine Salicylates Acetaminophen Crossmatch 04/07/19 04/09/19 04/09/19 12:57 04:28 04:28 WBC RBC 2.85 L Hgb 8.7 L Hct 26.2 L MCV MCHC RDW 15.6 H Plt Count Lymph % (Auto) [place] % (Auto) 10.4 H Lymph # 1.0 L [place] # Seg Neutrophils % 73.3 H Seg Neuts % (Manual) Lymphocytes % (Manual) Monocytes % (Manual) Nucleated RBC % Seg Neutrophils # Seg Neutrophils # Man Lymphocytes # (Manual) Monocytes # (Manual) PT INR D-Dimer Heparin Anti-Xa Level POC ABG pH ABG pH POC ABG pCO2 POC ABG pO2 107 H ABG pO2 ABG HCO3 ABG O2 Saturation ABG Base Excess ABG Hemoglobin Oxyhemoglobin Sodium Potassium 3.5 L Chloride 97.8 L Carbon Dioxide BUN 62 H Creatinine 8.1 H Glucose POC Glucose Lactic Acid Calcium 8.2 L Ionized Calcium Phosphorus 5.10 H Magnesium Iron TIBC Ferritin Total Bilirubin Direct Bilirubin AST ALT Alkaline Phosphatase Total Creatine Kinase CK-MB (CK-2) Troponin T C-Reactive Protein Total Protein Albumin Triglycerides LDL Cholesterol Direct HDL Cholesterol Free T4 PTH Intact Urine WBC (Auto) Urine Creatinine Salicylates Acetaminophen Crossmatch 04/10/19 04/11/19 04/11/19 18:15 00:25 04:16 WBC 11.5 H RBC 2.91 L Hgb 8.9 L Hct 27.6 L MCV 95 H MCHC RDW 17.5 H Plt Count Lymph % (Auto) [place] % (Auto) Lymph # [place] # Seg Neutrophils % Seg Neuts % (Manual) 71.0 H Lymphocytes % (Manual) Monocytes % (Manual) 8.0 H Nucleated RBC % Seg Neutrophils # Seg Neutrophils # Man 8.2 H Lymphocytes # (Manual) Monocytes # (Manual) 0.9 H PT INR D-Dimer Heparin Anti-Xa Level POC ABG pH ABG pH POC ABG pCO2 POC ABG pO2 ABG pO2 ABG HCO3 ABG O2 Saturation ABG Base Excess ABG Hemoglobin Oxyhemoglobin Sodium Potassium Chloride Carbon Dioxide BUN Creatinine Glucose POC Glucose 109 H 114 H Lactic Acid Calcium Ionized Calcium Phosphorus Magnesium Iron TIBC Ferritin Total Bilirubin Direct Bilirubin AST ALT Alkaline Phosphatase Total Creatine Kinase CK-MB (CK-2) Troponin T C-Reactive Protein Total Protein Albumin Triglycerides LDL Cholesterol Direct HDL Cholesterol Free T4 PTH Intact Urine WBC (Auto) Urine Creatinine Salicylates Acetaminophen Crossmatch 04/11/19 04/11/19 04/11/19 06:47 09:21 12:15 WBC RBC Hgb Hct MCV MCHC RDW Plt Count Lymph % (Auto) [place] % (Auto) Lymph # [place] # Seg Neutrophils % Seg Neuts % (Manual) Lymphocytes % (Manual) Monocytes % (Manual) Nucleated RBC % Seg Neutrophils # Seg Neutrophils # Man Lymphocytes # (Manual) Monocytes # (Manual) PT INR D-Dimer Heparin Anti-Xa Level POC ABG pH ABG pH POC ABG pCO2 POC ABG pO2 ABG pO2 ABG HCO3 ABG O2 Saturation ABG Base Excess ABG Hemoglobin Oxyhemoglobin Sodium Potassium 3.5 L Chloride Carbon Dioxide BUN 45 H Creatinine 6.0 H Glucose 113 H POC Glucose 106 H 109 H Lactic Acid Calcium Ionized Calcium Phosphorus Magnesium Iron TIBC Ferritin Total Bilirubin Direct Bilirubin AST ALT Alkaline Phosphatase Total Creatine Kinase CK-MB (CK-2) Troponin T C-Reactive Protein Total Protein Albumin Triglycerides LDL Cholesterol Direct HDL Cholesterol Free T4 PTH Intact Urine WBC (Auto) Urine Creatinine Salicylates Acetaminophen Crossmatch 04/11/19 04/12/19 04/12/19 18:42 12:13 23:52 WBC RBC Hgb Hct MCV MCHC RDW Plt Count Lymph % (Auto) [place] % (Auto) Lymph # [place] # Seg Neutrophils % Seg Neuts % (Manual) Lymphocytes % (Manual) Monocytes % (Manual) Nucleated RBC % Seg Neutrophils # Seg Neutrophils # Man Lymphocytes # (Manual) Monocytes # (Manual) PT INR D-Dimer Heparin Anti-Xa Level POC ABG pH ABG pH POC ABG pCO2 POC ABG pO2 ABG pO2 ABG HCO3 ABG O2 Saturation ABG Base Excess ABG Hemoglobin Oxyhemoglobin Sodium Potassium Chloride Carbon Dioxide BUN Creatinine Glucose POC Glucose 107 H 115 H 124 H Lactic Acid Calcium Ionized Calcium Phosphorus Magnesium Iron TIBC Ferritin Total Bilirubin Direct Bilirubin AST ALT Alkaline Phosphatase Total Creatine Kinase CK-MB (CK-2) Troponin T C-Reactive Protein Total Protein Albumin Triglycerides LDL Cholesterol Direct HDL Cholesterol Free T4 PTH Intact Urine WBC (Auto) Urine Creatinine Salicylates Acetaminophen Crossmatch 04/13/19 04/13/19 04/13/19 05:00 05:00 05:47 WBC 11.7 H RBC 2.97 L Hgb 8.8 L Hct 27.3 L MCV MCHC RDW 16.1 H Plt Count Lymph % (Auto) 9.5 L [place] % (Auto) 9.9 H Lymph # 1.1 L [place] # 1.2 H Seg Neutrophils % 78.6 H Seg Neuts % (Manual) Lymphocytes % (Manual) Monocytes % (Manual) Nucleated RBC % Seg Neutrophils # 9.2 H Seg Neutrophils # Man Lymphocytes # (Manual) Monocytes # (Manual) PT INR D-Dimer Heparin Anti-Xa Level POC ABG pH ABG pH POC ABG pCO2 POC ABG pO2 ABG pO2 ABG HCO3 ABG O2 Saturation ABG Base Excess ABG Hemoglobin Oxyhemoglobin Sodium Potassium 3.5 L Chloride Carbon Dioxide BUN 42 H Creatinine 4.6 H Glucose 106 H POC Glucose 107 H Lactic Acid Calcium 10.6 H D Ionized Calcium Phosphorus 5.90 H Magnesium Iron TIBC Ferritin Total Bilirubin Direct Bilirubin AST ALT Alkaline Phosphatase Total Creatine Kinase CK-MB (CK-2) Troponin T C-Reactive Protein Total Protein 5.8 L Albumin 2.5 L Triglycerides LDL Cholesterol Direct HDL Cholesterol Free T4 PTH Intact Urine WBC (Auto) Urine Creatinine Salicylates Acetaminophen Crossmatch 04/13/19 04/14/19 04/14/19 17:32 00:00 03:55 WBC RBC Hgb Hct MCV MCHC RDW Plt Count Lymph % (Auto) [place] % (Auto) Lymph # [place] # Seg Neutrophils % Seg Neuts % (Manual) Lymphocytes % (Manual) Monocytes % (Manual) Nucleated RBC % Seg Neutrophils # Seg Neutrophils # Man Lymphocytes # (Manual) Monocytes # (Manual) PT INR D-Dimer Heparin Anti-Xa Level POC ABG pH ABG pH POC ABG pCO2 POC ABG pO2 ABG pO2 ABG HCO3 ABG O2 Saturation ABG Base Excess ABG Hemoglobin Oxyhemoglobin Sodium Potassium 3.0 L Chloride Carbon Dioxide BUN 30 H Creatinine 3.1 H Glucose POC Glucose 112 H 120 H Lactic Acid Calcium 10.8 H Ionized Calcium Phosphorus Magnesium Iron TIBC Ferritin Total Bilirubin Direct Bilirubin AST ALT Alkaline Phosphatase Total Creatine Kinase CK-MB (CK-2) Troponin T C-Reactive Protein Total Protein Albumin Triglycerides LDL Cholesterol Direct HDL Cholesterol Free T4 PTH Intact Urine WBC (Auto) Urine Creatinine Salicylates Acetaminophen Crossmatch 04/14/19 04/14/19 04/15/19 11:56 23:28 05:11 WBC 13.0 H RBC 2.93 L Hgb 8.6 L Hct 26.5 L MCV MCHC RDW 16.5 H Plt Count Lymph % (Auto) 12.2 L [place] % (Auto) 9.1 H Lymph # [place] # 1.2 H Seg Neutrophils % 77.6 H Seg Neuts % (Manual) Lymphocytes % (Manual) Monocytes % (Manual) Nucleated RBC % Seg Neutrophils # 10.1 H Seg Neutrophils # Man Lymphocytes # (Manual) Monocytes # (Manual) PT INR D-Dimer Heparin Anti-Xa Level POC ABG pH ABG pH POC ABG pCO2 POC ABG pO2 ABG pO2 ABG HCO3 ABG O2 Saturation ABG Base Excess ABG Hemoglobin Oxyhemoglobin Sodium Potassium Chloride Carbon Dioxide BUN Creatinine Glucose POC Glucose 109 H 112 H Lactic Acid Calcium Ionized Calcium Phosphorus Magnesium Iron TIBC Ferritin Total Bilirubin Direct Bilirubin AST ALT Alkaline Phosphatase Total Creatine Kinase CK-MB (CK-2) Troponin T C-Reactive Protein Total Protein Albumin Triglycerides LDL Cholesterol Direct HDL Cholesterol Free T4 PTH Intact Urine WBC (Auto) Urine Creatinine Salicylates Acetaminophen Crossmatch 04/15/19 04/15/19 04/15/19 05:11 05:31 18:03 WBC RBC Hgb Hct MCV MCHC RDW Plt Count Lymph % (Auto) [place] % (Auto) Lymph # [place] # Seg Neutrophils % Seg Neuts % (Manual) Lymphocytes % (Manual) Monocytes % (Manual) Nucleated RBC % Seg Neutrophils # Seg Neutrophils # Man Lymphocytes # (Manual) Monocytes # (Manual) PT INR D-Dimer Heparin Anti-Xa Level POC ABG pH ABG pH POC ABG pCO2 POC ABG pO2 ABG pO2 ABG HCO3 ABG O2 Saturation ABG Base Excess ABG Hemoglobin Oxyhemoglobin Sodium Potassium 3.2 L Chloride Carbon Dioxide BUN 44 H Creatinine 3.6 H Glucose 106 H POC Glucose 110 H 121 H Lactic Acid Calcium 12.0 H Ionized Calcium Phosphorus 5.00 H Magnesium Iron TIBC Ferritin Total Bilirubin Direct Bilirubin AST ALT Alkaline Phosphatase Total Creatine Kinase CK-MB (CK-2) Troponin T C-Reactive Protein Total Protein Albumin Triglycerides LDL Cholesterol Direct HDL Cholesterol Free T4 PTH Intact Urine WBC (Auto) Urine Creatinine Salicylates Acetaminophen Crossmatch 04/16/19 04/16/19 04/17/19 05:07 05:07 04:15 WBC 12.6 H RBC 3.12 L Hgb 9.0 L Hct 28.2 L MCV MCHC RDW 16.6 H Plt Count Lymph % (Auto) 10.3 L [place] % (Auto) 9.8 H Lymph # [place] # 1.2 H Seg Neutrophils % 78.2 H Seg Neuts % (Manual) Lymphocytes % (Manual) Monocytes % (Manual) Nucleated RBC % Seg Neutrophils # 9.9 H Seg Neutrophils # Man Lymphocytes # (Manual) Monocytes # (Manual) PT INR D-Dimer Heparin Anti-Xa Level POC ABG pH ABG pH POC ABG pCO2 POC ABG pO2 ABG pO2 ABG HCO3 ABG O2 Saturation ABG Base Excess ABG Hemoglobin Oxyhemoglobin Sodium 147 H 150 H Potassium 3.5 L 3.1 L Chloride Carbon Dioxide 32 H BUN 54 H 65 H Creatinine 3.8 H 4.0 H Glucose 102 H 107 H POC Glucose Lactic Acid Calcium 11.7 H 12.0 H Ionized Calcium Phosphorus 5.40 H Magnesium Iron TIBC Ferritin Total Bilirubin Direct Bilirubin AST ALT Alkaline Phosphatase Total Creatine Kinase CK-MB (CK-2) Troponin T C-Reactive Protein 7.10 H Total Protein Albumin Triglycerides LDL Cholesterol Direct HDL Cholesterol Free T4 PTH Intact Urine WBC (Auto) Urine Creatinine Salicylates Acetaminophen Crossmatch 04/17/19 04/17/19 04/17/19 04:15 06:05 12:49 WBC 15.8 H RBC 3.32 L Hgb 9.5 L Hct 29.9 L MCV MCHC RDW 16.9 H Plt Count Lymph % (Auto) 12.6 L [place] % (Auto) 11.1 H Lymph # [place] # 1.7 H Seg Neutrophils % 74.7 H Seg Neuts % (Manual) Lymphocytes % (Manual) Monocytes % (Manual) Nucleated RBC % Seg Neutrophils # 11.8 H Seg Neutrophils # Man Lymphocytes # (Manual) Monocytes # (Manual) PT INR D-Dimer Heparin Anti-Xa Level POC ABG pH ABG pH POC ABG pCO2 POC ABG pO2 ABG pO2 ABG HCO3 ABG O2 Saturation ABG Base Excess ABG Hemoglobin Oxyhemoglobin Sodium Potassium Chloride Carbon Dioxide BUN Creatinine Glucose POC Glucose 111 H 108 H Lactic Acid Calcium Ionized Calcium Phosphorus Magnesium Iron TIBC Ferritin Total Bilirubin Direct Bilirubin AST ALT Alkaline Phosphatase Total Creatine Kinase CK-MB (CK-2) Troponin T C-Reactive Protein Total Protein Albumin Triglycerides LDL Cholesterol Direct HDL Cholesterol Free T4 PTH Intact Urine WBC (Auto) Urine Creatinine Salicylates Acetaminophen Crossmatch 04/18/19 04/18/19 04/18/19 00:23 04:41 04:41 WBC 19.4 H RBC 3.03 L Hgb 8.6 L Hct 27.5 L MCV MCHC 31 L RDW 16.9 H Plt Count Lymph % (Auto) [place] % (Auto) Lymph # [place] # Seg Neutrophils % Seg Neuts % (Manual) Lymphocytes % (Manual) Monocytes % (Manual) Nucleated RBC % Seg Neutrophils # Seg Neutrophils # Man Lymphocytes # (Manual) Monocytes # (Manual) PT INR D-Dimer Heparin Anti-Xa Level POC ABG pH ABG pH POC ABG pCO2 POC ABG pO2 ABG pO2 ABG HCO3 ABG O2 Saturation ABG Base Excess ABG Hemoglobin Oxyhemoglobin Sodium 152 H Potassium 3.0 L Chloride Carbon Dioxide BUN 80 H Creatinine 4.3 H Glucose 103 H POC Glucose 115 H Lactic Acid Calcium 11.4 H Ionized Calcium Phosphorus Magnesium Iron TIBC Ferritin Total Bilirubin Direct Bilirubin AST ALT Alkaline Phosphatase Total Creatine Kinase CK-MB (CK-2) Troponin T C-Reactive Protein Total Protein Albumin Triglycerides LDL Cholesterol Direct HDL Cholesterol Free T4 PTH Intact Urine WBC (Auto) Urine Creatinine Salicylates Acetaminophen Crossmatch 04/18/19 04/18/19 04/18/19 06:17 12:16 18:10 WBC RBC Hgb Hct MCV MCHC RDW Plt Count Lymph % (Auto) [place] % (Auto) Lymph # [place] # Seg Neutrophils % Seg Neuts % (Manual) Lymphocytes % (Manual) Monocytes % (Manual) Nucleated RBC % Seg Neutrophils # Seg Neutrophils # Man Lymphocytes # (Manual) Monocytes # (Manual) PT INR D-Dimer Heparin Anti-Xa Level POC ABG pH ABG pH POC ABG pCO2 POC ABG pO2 ABG pO2 ABG HCO3 ABG O2 Saturation ABG Base Excess ABG Hemoglobin Oxyhemoglobin Sodium Potassium Chloride Carbon Dioxide BUN Creatinine Glucose POC Glucose 124 H 119 H 111 H Lactic Acid Calcium Ionized Calcium Phosphorus Magnesium Iron TIBC Ferritin Total Bilirubin Direct Bilirubin AST ALT Alkaline Phosphatase Total Creatine Kinase CK-MB (CK-2) Troponin T C-Reactive Protein Total Protein Albumin Triglycerides LDL Cholesterol Direct HDL Cholesterol Free T4 PTH Intact Urine WBC (Auto) Urine Creatinine Salicylates Acetaminophen Crossmatch 04/19/19 04/19/19 04/20/19 03:49 05:27 09:09 WBC RBC Hgb Hct MCV MCHC RDW Plt Count Lymph % (Auto) [place] % (Auto) Lymph # [place] # Seg Neutrophils % Seg Neuts % (Manual) Lymphocytes % (Manual) Monocytes % (Manual) Nucleated RBC % Seg Neutrophils # Seg Neutrophils # Man Lymphocytes # (Manual) Monocytes # (Manual) PT INR D-Dimer Heparin Anti-Xa Level POC ABG pH ABG pH POC ABG pCO2 POC ABG pO2 ABG pO2 ABG HCO3 ABG O2 Saturation ABG Base Excess ABG Hemoglobin Oxyhemoglobin Sodium 147 H 150 H Potassium 3.3 L Chloride 108.9 H Carbon Dioxide BUN 45 H 70 H Creatinine 2.9 H 4.1 H Glucose 105 H POC Glucose 124 H Lactic Acid Calcium 10.6 H 11.6 H Ionized Calcium Phosphorus Magnesium Iron TIBC Ferritin Total Bilirubin Direct Bilirubin AST ALT Alkaline Phosphatase Total Creatine Kinase CK-MB (CK-2) Troponin T C-Reactive Protein Total Protein Albumin Triglycerides LDL Cholesterol Direct HDL Cholesterol Free T4 PTH Intact Urine WBC (Auto) Urine Creatinine Salicylates Acetaminophen Crossmatch Additional Studies: 03/16/2019 sputum: salivary contamination 03/16/2019 Blood culture: no growth 03/17/2019 Urine culture no growth 03/17/2019 throat culture: no growth 03/26/2019 Blood culture: no growth 03/27/2019 Blood culture negative. 04/04/2019 blood culture NGTD 04/05/2019 urine culture: no growth 04/11/2019 blood culture: no growth 04/15/2019 blood culture: no growth Allied health notes reviewed: nursing
--- NOTE | 2019-04-20 11:44 | Progress Note ---
Assessment and Plan Patient is a 43 y/o man w/ a history of psychiatric illness (unknown which psychiatric diagnosis he has been given in the past), who presented on 03/16/19 with altered mental status. During the course of admission, patient was found to have sepsis with septic shock, rhabdomyolysis, RUBEN, and multiorgan failure. According to the patient's clinical findings, the patient likely has toxic metabolic encephalopathy. In support of this diagnosis, during this admission the patient has had multiple metabolic derangements including multiorgan fa ilure, sepsis, septic shock requiring pressor support, RUBEN, rhabdomyolysis. Plan: 1. Metabolic encephalopathy: - Likely due to multiple underlying metabolic derangements, as well as infections. - Mental status improved since admission. - Patient on antibiotics per ID. - Continue supportive care per ICU/primary/ID teams. - Discussed at length with patient's brother regarding current neurologic status, altered mental status due to metabolic abnormalities. -Will sign off as I am not covering neurology service over the weekend. Recommend for neurologist covering neurology service over the weekend to be consulted for further neurologic monitoring and management. Thank you for allowing me to take part in the care of this patient. Nahid Carroll MD Neurology Subjective Date of service: 04/20/19 Principal diagnosis: anemia - DVT IJ Interval history: Patient febrile overnight. Objective - Exam Narrative Exam: Patient is awake, alert, oriented to self and year, minus month, date. Following 2-step commands. PERRL, EOMI, no facial weakness noted, tongue midline, visual argueta full, bilaterally intact to light touch. Bilaterally intact light touch in all extremities.. 2+ reflexes throughout. No dysarthria or aphasia noted. RUE 3/5, LUE 2/5, 2/5 strength in bilateral lower extremities. - Vital Sign Vital Signs - 12hr 04/20/19 04/20/19 04/20/19 00:00 01:00 02:00 Temperature 102.3 F H Pulse Rate 90 91 H 92 H Pulse Rate [ 90 From Monitor] Respiratory 20 37 H 22 Rate Blood Pressure 119/62 122/68 128/60 O2 Sat by Pulse 94 95 95 Oximetry 04/20/19 04/20/19 04/20/19 03:00 04:00 04:59 Temperature 99 F Pulse Rate 95 H 95 H 150 H Pulse Rate [ 108 H From Monitor] Respiratory 41 H 25 H Rate Blood Pressure 129/69 121/66 121/66 O2 Sat by Pulse 96 95 Oximetry 04/20/19 04/20/19 04/20/19 05:00 06:00 06:41 Temperature Pulse Rate 147 H Pulse Rate [ From Monitor] Respiratory 31 H 35 H Rate Blood Pressure 121/66 111/60 O2 Sat by Pulse 94 96 Oximetry 04/20/19 04/20/19 04/20/19 07:00 08:00 08:47 Temperature 99.4 F Pulse Rate 94 H 94 H Pulse Rate [ From Monitor] Respiratory 35 H 27 H Rate Blood Pressure 96/69 119/64 O2 Sat by Pulse 94 94 97 Oximetry 04/20/19 04/20/19 04/20/19 09:55 10:00 10:15 Temperature 99.1 F Pulse Rate 91 H 90 91 H Pulse Rate [ From Monitor] Respiratory 24 Rate Blood Pressure 130/64 123/72 113/67 O2 Sat by Pulse Oximetry 04/20/19 04/20/19 04/20/19 10:30 10:45 10:48 Temperature Pulse Rate 90 87 89 Pulse Rate [ From Monitor] Respiratory Rate Blood Pressure 110/67 106/68 106/68 O2 Sat by Pulse Oximetry 04/20/19 04/20/19 11:00 11:15 Temperature Pulse Rate 87 87 Pulse Rate [ From Monitor] Respiratory Rate Blood Pressure 93/46 102/68 O2 Sat by Pulse Oximetry - General Apperance Constitutional: comfortable - EENT EENT: ATNC, PERRL, mucous membranes moist, hearing intact, vision intact - Respiratory Respiratory: decreased breath sounds - Cardiovascular Cardiovascular: regular rate, normal S1, normal S2 Extremities: no clubbing, cyanosis, no inflammation - Gastrointestinal Gastrointestinal: normoactive bowel sounds, soft, non-tender - Psychiatric Psychiatric: mood/affect appropriate - Laboratory Findings CBC and BMP: 04/18/19 04:41 04/20/19 09:09 Abnormal Lab Findings: Abnormal Labs 03/16/19 03/16/19 03/16/19 15:32 16:03 16:05 WBC 27.0 H RBC 5.55 H Hgb 15.7 H Hct 47.1 H MCV MCHC RDW Plt Count 75 L Lymph % (Auto) [place] % (Auto) Lymph # [place] # Seg Neutrophils % Seg Neuts % (Manual) 85.0 H Lymphocytes % (Manual) 2.0 L Monocytes % (Manual) Nucleated RBC % Seg Neutrophils # Seg Neutrophils # Man 23.0 H Lymphocytes # (Manual) 0.5 L Monocytes # (Manual) PT INR D-Dimer Heparin Anti-Xa Level POC ABG pH ABG pH POC ABG pCO2 POC ABG pO2 ABG pO2 ABG HCO3 ABG O2 Saturation ABG Base Excess ABG Hemoglobin Oxyhemoglobin Sodium 127 L Potassium Chloride 87.8 L Carbon Dioxide 17 L BUN 49 H Creatinine 5.8 H Glucose 150 H POC Glucose 118 H Lactic Acid Calcium 6.6 L Ionized Calcium Phosphorus Magnesium 1.10 L Iron TIBC Ferritin Total Bilirubin Direct Bilirubin AST ALT Alkaline Phosphatase Total Creatine Kinase 47181 H CK-MB (CK-2) Troponin T C-Reactive Protein Total Protein Albumin Triglycerides LDL Cholesterol Direct HDL Cholesterol Free T4 PTH Intact Urine WBC (Auto) Urine Creatinine Salicylates Acetaminophen Crossmatch 03/16/19 03/16/19 03/16/19 16:59 17:05 17:05 WBC RBC Hgb Hct MCV MCHC RDW Plt Count Lymph % (Auto) [place] % (Auto) Lymph # [place] # Seg Neutrophils % Seg Neuts % (Manual) Lymphocytes % (Manual) Monocytes % (Manual) Nucleated RBC % Seg Neutrophils # Seg Neutrophils # Man Lymphocytes # (Manual) Monocytes # (Manual) PT INR D-Dimer Heparin Anti-Xa Level POC ABG pH 7.297 L ABG pH POC ABG pCO2 33.0 L POC ABG pO2 ABG pO2 ABG HCO3 ABG O2 Saturation ABG Base Excess ABG Hemoglobin Oxyhemoglobin Sodium Potassium Chloride Carbon Dioxide BUN Creatinine Glucose POC Glucose Lactic Acid Calcium Ionized Calcium Phosphorus Magnesium Iron TIBC Ferritin Total Bilirubin Direct Bilirubin AST ALT Alkaline Phosphatase Total Creatine Kinase 95905 H CK-MB (CK-2) 83.1 H Troponin T C-Reactive Protein Total Protein Albumin Triglycerides LDL Cholesterol Direct HDL Cholesterol Free T4 0.72 L PTH Intact Urine WBC (Auto) Urine Creatinine Salicylates Acetaminophen Crossmatch 03/16/19 03/16/19 03/16/19 17:05 17:05 17:05 WBC RBC Hgb Hct MCV MCHC RDW Plt Count Lymph % (Auto) [place] % (Auto) Lymph # [place] # Seg Neutrophils % Seg Neuts % (Manual) Lymphocytes % (Manual) Monocytes % (Manual) Nucleated RBC % Seg Neutrophils # Seg Neutrophils # Man Lymphocytes # (Manual) Monocytes # (Manual) PT INR D-Dimer Heparin Anti-Xa Level POC ABG pH ABG pH POC ABG pCO2 POC ABG pO2 ABG pO2 ABG HCO3 ABG O2 Saturation ABG Base Excess ABG Hemoglobin Oxyhemoglobin Sodium Potassium Chloride Carbon Dioxide BUN Creatinine Glucose POC Glucose Lactic Acid 5.10 H* Calcium Ionized Calcium Phosphorus Magnesium Iron TIBC Ferritin Total Bilirubin Direct Bilirubin AST ALT Alkaline Phosphatase Total Creatine Kinase CK-MB (CK-2) Troponin T C-Reactive Protein Total Protein Albumin Triglycerides LDL Cholesterol Direct HDL Cholesterol Free T4 PTH Intact Urine WBC (Auto) Urine Creatinine Salicylates < 0.3 L Acetaminophen < 5.0 L Crossmatch 03/16/19 03/16/19 03/16/19 17:05 17:05 20:35 WBC RBC Hgb Hct MCV MCHC RDW Plt Count Lymph % (Auto) [place] % (Auto) Lymph # [place] # Seg Neutrophils % Seg Neuts % (Manual) Lymphocytes % (Manual) Monocytes % (Manual) Nucleated RBC % Seg Neutrophils # Seg Neutrophils # Man Lymphocytes # (Manual) Monocytes # (Manual) PT 15.9 H INR 1.30 H D-Dimer Heparin Anti-Xa Level POC ABG pH ABG pH POC ABG pCO2 POC ABG pO2 ABG pO2 ABG HCO3 ABG O2 Saturation ABG Base Excess ABG Hemoglobin Oxyhemoglobin Sodium Potassium Chloride Carbon Dioxide BUN Creatinine Glucose POC Glucose Lactic Acid 3.30 H* Calcium Ionized Calcium Phosphorus Magnesium Iron TIBC Ferritin Total Bilirubin 6.20 H Direct Bilirubin 5.9 H AST 800 H ALT 120 H Alkaline Phosphatase Total Creatine Kinase CK-MB (CK-2) Troponin T C-Reactive Protein Total Protein 4.4 L Albumin 2.4 L Triglycerides LDL Cholesterol Direct HDL Cholesterol Free T4 PTH Intact Urine WBC (Auto) Urine Creatinine Salicylates Acetaminophen Crossmatch 03/16/19 03/16/19 03/16/19 21:45 22:32 Unknown WBC RBC Hgb Hct MCV MCHC RDW Plt Count Lymph % (Auto) [place] % (Auto) Lymph # [place] # Seg Neutrophils % Seg Neuts % (Manual) Lymphocytes % (Manual) Monocytes % (Manual) Nucleated RBC % Seg Neutrophils # Seg Neutrophils # Man Lymphocytes # (Manual) Monocytes # (Manual) PT INR D-Dimer Heparin Anti-Xa Level POC ABG pH ABG pH POC ABG pCO2 POC ABG pO2 ABG pO2 ABG HCO3 ABG O2 Saturation ABG Base Excess ABG Hemoglobin Oxyhemoglobin Sodium Potassium Chloride Carbon Dioxide BUN Creatinine Glucose POC Glucose Lactic Acid 3.30 H* 3.00 H* Calcium Ionized Calcium Phosphorus Magnesium Iron TIBC Ferritin Total Bilirubin Direct Bilirubin AST ALT Alkaline Phosphatase Total Creatine Kinase CK-MB (CK-2) Troponin T 0.047 H D C-Reactive Protein Total Protein Albumin Triglycerides 395 H LDL Cholesterol Direct 10 L HDL Cholesterol 7 L Free T4 PTH Intact Urine WBC (Auto) Urine Creatinine Salicylates Acetaminophen Crossmatch 03/17/19 03/17/19 03/17/19 03:45 03:45 03:45 WBC RBC Hgb Hct MCV MCHC RDW Plt Count Lymph % (Auto) [place] % (Auto) Lymph # [place] # Seg Neutrophils % Seg Neuts % (Manual) Lymphocytes % (Manual) Monocytes % (Manual) Nucleated RBC % Seg Neutrophils # Seg Neutrophils # Man Lymphocytes # (Manual) Monocytes # (Manual) PT INR D-Dimer Heparin Anti-Xa Level POC ABG pH ABG pH POC ABG pCO2 POC ABG pO2 ABG pO2 ABG HCO3 ABG O2 Saturation ABG Base Excess ABG Hemoglobin Oxyhemoglobin Sodium 131 L Potassium Chloride 88.9 L Carbon Dioxide BUN 53 H Creatinine 7.1 H Glucose POC Glucose Lactic Acid 4.10 H* Calcium 5.4 L* D Ionized Calcium Phosphorus 7.30 H Magnesium 1.60 L Iron TIBC Ferritin Total Bilirubin 5.90 H Direct Bilirubin AST 801 H ALT 109 H Alkaline Phosphatase Total Creatine Kinase 17660 H 95720 H CK-MB (CK-2) 41.5 H Troponin T 0.054 H C-Reactive Protein Total Protein 4.5 L Albumin 2.0 L Triglycerides LDL Cholesterol Direct HDL Cholesterol Free T4 PTH Intact Urine WBC (Auto) Urine Creatinine Salicylates Acetaminophen Crossmatch 03/17/19 03/17/19 03/17/19 05:47 07:16 07:16 WBC RBC Hgb Hct MCV MCHC RDW Plt Count Lymph % (Auto) [place] % (Auto) Lymph # [place] # Seg Neutrophils % Seg Neuts % (Manual) Lymphocytes % (Manual) Monocytes % (Manual) Nucleated RBC % Seg Neutrophils # Seg Neutrophils # Man Lymphocytes # (Manual) Monocytes # (Manual) PT INR D-Dimer Heparin Anti-Xa Level POC ABG pH 7.193 L ABG pH POC ABG pCO2 45.2 H POC ABG pO2 65 L ABG pO2 ABG HCO3 ABG O2 Saturation ABG Base Excess ABG Hemoglobin Oxyhemoglobin Sodium Potassium Chloride Carbon Dioxide BUN Creatinine Glucose POC Glucose Lactic Acid 5.50 H* Calcium Ionized Calcium Phosphorus Magnesium Iron TIBC Ferritin Total Bilirubin Direct Bilirubin AST ALT Alkaline Phosphatase Total Creatine Kinase 57716 H CK-MB (CK-2) 54.3 H Troponin T 0.058 H C-Reactive Protein Total Protein Albumin Triglycerides LDL Cholesterol Direct HDL Cholesterol Free T4 PTH Intact Urine WBC (Auto) Urine Creatinine Salicylates Acetaminophen Crossmatch 03/17/19 03/17/19 03/17/19 11:52 12:51 13:01 WBC RBC Hgb Hct MCV MCHC RDW Plt Count Lymph % (Auto) [place] % (Auto) Lymph # [place] # Seg Neutrophils % Seg Neuts % (Manual) Lymphocytes % (Manual) Monocytes % (Manual) Nucleated RBC % Seg Neutrophils # Seg Neutrophils # Man Lymphocytes # (Manual) Monocytes # (Manual) PT INR D-Dimer Heparin Anti-Xa Level POC ABG pH 7.154 L ABG pH POC ABG pCO2 34.3 L POC ABG pO2 73 L ABG pO2 ABG HCO3 ABG O2 Saturation ABG Base Excess ABG Hemoglobin Oxyhemoglobin Sodium Potassium Chloride Carbon Dioxide BUN Creatinine Glucose POC Glucose 60 L Lactic Acid 8.20 H* Calcium Ionized Calcium Phosphorus Magnesium Iron TIBC Ferritin Total Bilirubin Direct Bilirubin AST ALT Alkaline Phosphatase Total Creatine Kinase CK-MB (CK-2) Troponin T C-Reactive Protein Total Protein Albumin Triglycerides LDL Cholesterol Direct HDL Cholesterol Free T4 PTH Intact Urine WBC (Auto) Urine Creatinine Salicylates Acetaminophen Crossmatch 03/17/19 03/17/19 03/17/19 14:37 14:37 14:37 WBC 29.3 H RBC Hgb Hct MCV MCHC RDW 15.8 H Plt Count 45 L Lymph % (Auto) [place] % (Auto) Lymph # [place] # Seg Neutrophils % Seg Neuts % (Manual) 81.0 H Lymphocytes % (Manual) 1.0 L Monocytes % (Manual) 15.0 H Nucleated RBC % Seg Neutrophils # Seg Neutrophils # Man 23.7 H Lymphocytes # (Manual) 0.3 L Monocytes # (Manual) 4.4 H PT INR D-Dimer Heparin Anti-Xa Level POC ABG pH ABG pH POC ABG pCO2 POC ABG pO2 ABG pO2 ABG HCO3 ABG O2 Saturation ABG Base Excess ABG Hemoglobin Oxyhemoglobin Sodium Potassium Chloride Carbon Dioxide BUN Creatinine Glucose POC Glucose Lactic Acid 4.90 H* Calcium Ionized Calcium Phosphorus Magnesium Iron TIBC Ferritin Total Bilirubin Direct Bilirubin AST ALT Alkaline Phosphatase Total Creatine Kinase CK-MB (CK-2) Troponin T C-Reactive Protein 24.90 H Total Protein Albumin Triglycerides LDL Cholesterol Direct HDL Cholesterol Free T4 PTH Intact Urine WBC (Auto) Urine Creatinine Salicylates Acetaminophen Crossmatch 03/17/19 03/17/19 03/17/19 16:05 16:05 17:02 WBC RBC Hgb Hct MCV MCHC RDW Plt Count Lymph % (Auto) [place] % (Auto) Lymph # [place] # Seg Neutrophils % Seg Neuts % (Manual) Lymphocytes % (Manual) Monocytes % (Manual) Nucleated RBC % Seg Neutrophils # Seg Neutrophils # Man Lymphocytes # (Manual) Monocytes # (Manual) PT INR D-Dimer Heparin Anti-Xa Level POC ABG pH 7.183 L ABG pH POC ABG pCO2 POC ABG pO2 65 L ABG pO2 ABG HCO3 ABG O2 Saturation ABG Base Excess ABG Hemoglobin Oxyhemoglobin Sodium Potassium Chloride Carbon Dioxide BUN Creatinine Glucose POC Glucose Lactic Acid Calcium Ionized Calcium Phosphorus Magnesium Iron TIBC Ferritin Total Bilirubin Direct Bilirubin AST ALT Alkaline Phosphatase Total Creatine Kinase CK-MB (CK-2) Troponin T C-Reactive Protein Total Protein Albumin Triglycerides LDL Cholesterol Direct HDL Cholesterol Free T4 PTH Intact Urine WBC (Auto) 30.0 H Urine Creatinine 106.6 H Salicylates Acetaminophen Crossmatch 03/18/19 03/18/19 03/18/19 05:12 05:16 05:53 WBC RBC Hgb Hct MCV MCHC RDW Plt Count Lymph % (Auto) [place] % (Auto) Lymph # [place] # Seg Neutrophils % Seg Neuts % (Manual) Lymphocytes % (Manual) Monocytes % (Manual) Nucleated RBC % Seg Neutrophils # Seg Neutrophils # Man Lymphocytes # (Manual) Monocytes # (Manual) PT INR D-Dimer Heparin Anti-Xa Level POC ABG pH 7.257 L ABG pH POC ABG pCO2 31.6 L POC ABG pO2 69 L ABG pO2 ABG HCO3 ABG O2 Saturation ABG Base Excess ABG Hemoglobin Oxyhemoglobin Sodium Potassium Chloride Carbon Dioxide BUN Creatinine Glucose POC Glucose 141 H Lactic Acid 5.00 H* Calcium Ionized Calcium Phosphorus Magnesium Iron TIBC Ferritin Total Bilirubin Direct Bilirubin AST ALT Alkaline Phosphatase Total Creatine Kinase CK-MB (CK-2) Troponin T C-Reactive Protein Total Protein Albumin Triglycerides LDL Cholesterol Direct HDL Cholesterol Free T4 PTH Intact Urine WBC (Auto) Urine Creatinine Salicylates Acetaminophen Crossmatch 03/18/19 03/18/19 03/18/19 06:57 08:40 08:40 WBC 31.7 H RBC Hgb Hct MCV MCHC RDW 15.5 H Plt Count 35 L Lymph % (Auto) [place] % (Auto) Lymph # [place] # Seg Neutrophils % Seg Neuts % (Manual) Lymphocytes % (Manual) Monocytes % (Manual) Nucleated RBC % Seg Neutrophils # Seg Neutrophils # Man Lymphocytes # (Manual) Monocytes # (Manual) PT INR D-Dimer Heparin Anti-Xa Level POC ABG pH ABG pH POC ABG pCO2 POC ABG pO2 ABG pO2 ABG HCO3 ABG O2 Saturation ABG Base Excess ABG Hemoglobin Oxyhemoglobin Sodium 132 L Potassium 5.5 H D Chloride 88.5 L Carbon Dioxide 18 L BUN 71 H Creatinine 8.1 H Glucose 205 H POC Glucose Lactic Acid 5.00 H* Calcium 4.1 L* D Ionized Calcium Phosphorus Magnesium 2.40 H Iron TIBC Ferritin Total Bilirubin 7.50 H Direct Bilirubin AST 1088 H ALT 159 H Alkaline Phosphatase 190 H Total Creatine Kinase 048032 H CK-MB (CK-2) Troponin T C-Reactive Protein Total Protein 4.7 L Albumin 1.8 L Triglycerides LDL Cholesterol Direct HDL Cholesterol Free T4 PTH Intact Urine WBC (Auto) Urine Creatinine Salicylates Acetaminophen Crossmatch 03/18/19 03/18/19 03/18/19 12:33 12:50 13:19 WBC RBC Hgb Hct MCV MCHC RDW Plt Count Lymph % (Auto) [place] % (Auto) Lymph # [place] # Seg Neutrophils % Seg Neuts % (Manual) Lymphocytes % (Manual) Monocytes % (Manual) Nucleated RBC % Seg Neutrophils # Seg Neutrophils # Man Lymphocytes # (Manual) Monocytes # (Manual) PT INR D-Dimer Heparin Anti-Xa Level POC ABG pH 7.282 L ABG pH POC ABG pCO2 POC ABG pO2 67 L ABG pO2 ABG HCO3 ABG O2 Saturation ABG Base Excess ABG Hemoglobin Oxyhemoglobin Sodium Potassium Chloride Carbon Dioxide BUN Creatinine Glucose POC Glucose 129 H Lactic Acid 3.30 H* Calcium Ionized Calcium Phosphorus Magnesium Iron TIBC Ferritin Total Bilirubin Direct Bilirubin AST ALT Alkaline Phosphatase Total Creatine Kinase CK-MB (CK-2) Troponin T C-Reactive Protein Total Protein Albumin Triglycerides LDL Cholesterol Direct HDL Cholesterol Free T4 PTH Intact Urine WBC (Auto) Urine Creatinine Salicylates Acetaminophen Crossmatch 03/18/19 03/18/19 03/18/19 13:19 16:50 18:11 WBC RBC Hgb Hct MCV MCHC RDW Plt Count Lymph % (Auto) [place] % (Auto) Lymph # [place] # Seg Neutrophils % Seg Neuts % (Manual) Lymphocytes % (Manual) Monocytes % (Manual) Nucleated RBC % Seg Neutrophils # Seg Neutrophils # Man Lymphocytes # (Manual) Monocytes # (Manual) PT INR D-Dimer Heparin Anti-Xa Level POC ABG pH ABG pH POC ABG pCO2 POC ABG pO2 59 L ABG pO2 ABG HCO3 ABG O2 Saturation ABG Base Excess ABG Hemoglobin Oxyhemoglobin Sodium Potassium Chloride Carbon Dioxide BUN Creatinine Glucose POC Glucose 151 H Lactic Acid Calcium 4.2 L* Ionized Calcium Phosphorus Magnesium Iron TIBC Ferritin Total Bilirubin Direct Bilirubin AST ALT Alkaline Phosphatase Total Creatine Kinase 582020 H CK-MB (CK-2) Troponin T C-Reactive Protein Total Protein Albumin Triglycerides LDL Cholesterol Direct HDL Cholesterol Free T4 PTH Intact Urine WBC (Auto) Urine Creatinine Salicylates Acetaminophen Crossmatch 03/18/19 03/18/19 03/19/19 18:20 23:39 01:42 WBC RBC Hgb Hct MCV MCHC RDW Plt Count Lymph % (Auto) [place] % (Auto) Lymph # [place] # Seg Neutrophils % Seg Neuts % (Manual) Lymphocytes % (Manual) Monocytes % (Manual) Nucleated RBC % Seg Neutrophils # Seg Neutrophils # Man Lymphocytes # (Manual) Monocytes # (Manual) PT INR D-Dimer Heparin Anti-Xa Level POC ABG pH 7.345 L ABG pH 7.285 L POC ABG pCO2 POC ABG pO2 59 L ABG pO2 44.0 L ABG HCO3 ABG O2 Saturation 70.9 L ABG Base Excess -5.7 L ABG Hemoglobin 11.9 L Oxyhemoglobin 69.6 L Sodium Potassium Chloride Carbon Dioxide BUN Creatinine Glucose POC Glucose 152 H Lactic Acid Calcium Ionized Calcium Phosphorus Magnesium Iron TIBC Ferritin Total Bilirubin Direct Bilirubin AST ALT Alkaline Phosphatase Total Creatine Kinase CK-MB (CK-2) Troponin T C-Reactive Protein Total Protein Albumin Triglycerides LDL Cholesterol Direct HDL Cholesterol Free T4 PTH Intact Urine WBC (Auto) Urine Creatinine Salicylates Acetaminophen Crossmatch 03/19/19 03/19/19 03/19/19 04:00 04:00 05:35 WBC 36.5 H RBC Hgb Hct MCV MCHC RDW 15.8 H Plt Count 35 L Lymph % (Auto) [place] % (Auto) Lymph # [place] # Seg Neutrophils % Seg Neuts % (Manual) Lymphocytes % (Manual) Monocytes % (Manual) Nucleated RBC % Seg Neutrophils # Seg Neutrophils # Man Lymphocytes # (Manual) Monocytes # (Manual) PT INR D-Dimer Heparin Anti-Xa Level POC ABG pH ABG pH 7.265 L POC ABG pCO2 POC ABG pO2 ABG pO2 35.4 L* ABG HCO3 ABG O2 Saturation 54.4 L ABG Base Excess -6.7 L ABG Hemoglobin 12.9 L Oxyhemoglobin 53.4 L Sodium 132 L Potassium 5.7 H Chloride 89.8 L Carbon Dioxide 19 L BUN 62 H Creatinine 6.4 H Glucose 151 H POC Glucose Lactic Acid Calcium 5.2 L* D Ionized Calcium Phosphorus Magnesium Iron TIBC Ferritin Total Bilirubin 7.80 H Direct Bilirubin AST 682 H ALT 130 H Alkaline Phosphatase 167 H Total Creatine Kinase CK-MB (CK-2) Troponin T C-Reactive Protein Total Protein 4.8 L Albumin 2.3 L Triglycerides LDL Cholesterol Direct HDL Cholesterol Free T4 PTH Intact Urine WBC (Auto) Urine Creatinine Salicylates Acetaminophen Crossmatch 03/19/19 03/19/19 03/19/19 05:49 09:16 09:50 WBC RBC Hgb Hct MCV MCHC RDW Plt Count Lymph % (Auto) [place] % (Auto) Lymph # [place] # Seg Neutrophils % Seg Neuts % (Manual) Lymphocytes % (Manual) Monocytes % (Manual) Nucleated RBC % Seg Neutrophils # Seg Neutrophils # Man Lymphocytes # (Manual) Monocytes # (Manual) PT INR D-Dimer Heparin Anti-Xa Level POC ABG pH 7.222 L ABG pH POC ABG pCO2 56.6 H POC ABG pO2 ABG pO2 ABG HCO3 ABG O2 Saturation ABG Base Excess ABG Hemoglobin Oxyhemoglobin Sodium Potassium Chloride Carbon Dioxide BUN Creatinine Glucose POC Glucose 154 H Lactic Acid 2.70 H* Calcium Ionized Calcium Phosphorus Magnesium Iron TIBC Ferritin Total Bilirubin Direct Bilirubin AST ALT Alkaline Phosphatase Total Creatine Kinase CK-MB (CK-2) Troponin T C-Reactive Protein Total Protein Albumin Triglycerides LDL Cholesterol Direct HDL Cholesterol Free T4 PTH Intact Urine WBC (Auto) Urine Creatinine Salicylates Acetaminophen Crossmatch 03/19/19 03/19/19 03/19/19 09:50 11:28 17:58 WBC RBC Hgb Hct MCV MCHC RDW Plt Count Lymph % (Auto) [place] % (Auto) Lymph # [place] # Seg Neutrophils % Seg Neuts % (Manual) Lymphocytes % (Manual) Monocytes % (Manual) Nucleated RBC % Seg Neutrophils # Seg Neutrophils # Man Lymphocytes # (Manual) Monocytes # (Manual) PT INR D-Dimer Heparin Anti-Xa Level POC ABG pH 7.250 L ABG pH POC ABG pCO2 52.6 H POC ABG pO2 ABG pO2 ABG HCO3 ABG O2 Saturation ABG Base Excess ABG Hemoglobin Oxyhemoglobin Sodium Potassium Chloride Carbon Dioxide BUN Creatinine Glucose POC Glucose 160 H Lactic Acid Calcium Ionized Calcium Phosphorus Magnesium Iron TIBC Ferritin Total Bilirubin Direct Bilirubin AST ALT Alkaline Phosphatase Total Creatine Kinase 91198 H CK-MB (CK-2) Troponin T C-Reactive Protein Total Protein Albumin Triglycerides LDL Cholesterol Direct HDL Cholesterol Free T4 PTH Intact Urine WBC (Auto) Urine Creatinine Salicylates Acetaminophen Crossmatch 03/19/19 03/19/19 03/20/19 19:48 21:03 02:16 WBC RBC Hgb Hct MCV MCHC RDW Plt Count Lymph % (Auto) [place] % (Auto) Lymph # [place] # Seg Neutrophils % Seg Neuts % (Manual) Lymphocytes % (Manual) Monocytes % (Manual) Nucleated RBC % Seg Neutrophils # Seg Neutrophils # Man Lymphocytes # (Manual) Monocytes # (Manual) PT INR D-Dimer Heparin Anti-Xa Level POC ABG pH 7.279 L ABG pH POC ABG pCO2 50.3 H POC ABG pO2 129 H ABG pO2 ABG HCO3 ABG O2 Saturation ABG Base Excess ABG Hemoglobin Oxyhemoglobin Sodium Potassium Chloride Carbon Dioxide BUN Creatinine Glucose POC Glucose 119 H 119 H Lactic Acid Calcium Ionized Calcium Phosphorus Magnesium Iron TIBC Ferritin Total Bilirubin Direct Bilirubin AST ALT Alkaline Phosphatase Total Creatine Kinase CK-MB (CK-2) Troponin T C-Reactive Protein Total Protein Albumin Triglycerides LDL Cholesterol Direct HDL Cholesterol Free T4 PTH Intact Urine WBC (Auto) Urine Creatinine Salicylates Acetaminophen Crossmatch 03/20/19 03/20/19 03/20/19 04:23 05:05 09:30 WBC 36.3 H RBC Hgb Hct MCV MCHC RDW 15.5 H Plt Count 29 L Lymph % (Auto) [place] % (Auto) Lymph # [place] # Seg Neutrophils % Seg Neuts % (Manual) Lymphocytes % (Manual) Monocytes % (Manual) Nucleated RBC % Seg Neutrophils # Seg Neutrophils # Man Lymphocytes # (Manual) Monocytes # (Manual) PT INR D-Dimer Heparin Anti-Xa Level POC ABG pH ABG pH POC ABG pCO2 POC ABG pO2 280 H ABG pO2 ABG HCO3 ABG O2 Saturation ABG Base Excess ABG Hemoglobin Oxyhemoglobin Sodium Potassium Chloride Carbon Dioxide BUN Creatinine Glucose POC Glucose 115 H Lactic Acid Calcium Ionized Calcium Phosphorus Magnesium Iron TIBC Ferritin Total Bilirubin Direct Bilirubin AST ALT Alkaline Phosphatase Total Creatine Kinase CK-MB (CK-2) Troponin T C-Reactive Protein Total Protein Albumin Triglycerides LDL Cholesterol Direct HDL Cholesterol Free T4 PTH Intact Urine WBC (Auto) Urine Creatinine Salicylates Acetaminophen Crossmatch 03/20/19 03/20/19 03/20/19 09:30 09:30 11:34 WBC RBC Hgb Hct MCV MCHC RDW Plt Count Lymph % (Auto) [place] % (Auto) Lymph # [place] # Seg Neutrophils % Seg Neuts % (Manual) Lymphocytes % (Manual) Monocytes % (Manual) Nucleated RBC % Seg Neutrophils # Seg Neutrophils # Man Lymphocytes # (Manual) Monocytes # (Manual) PT INR D-Dimer Heparin Anti-Xa Level POC ABG pH ABG pH POC ABG pCO2 POC ABG pO2 ABG pO2 ABG HCO3 ABG O2 Saturation ABG Base Excess ABG Hemoglobin Oxyhemoglobin Sodium 131 L Potassium Chloride 92.3 L Carbon Dioxide 20 L BUN 68 H Creatinine 6.1 H Glucose 164 H POC Glucose 141 H Lactic Acid Calcium 5.3 L* Ionized Calcium Phosphorus Magnesium Iron TIBC Ferritin Total Bilirubin 9.50 H Direct Bilirubin AST 381 H ALT 116 H Alkaline Phosphatase 255 H Total Creatine Kinase 00781 H CK-MB (CK-2) Troponin T C-Reactive Protein Total Protein 5.1 L Albumin 2.3 L Triglycerides LDL Cholesterol Direct HDL Cholesterol Free T4 PTH Intact Urine WBC (Auto) Urine Creatinine Salicylates Acetaminophen Crossmatch 03/20/19 03/20/19 03/20/19 14:41 14:45 18:50 WBC RBC Hgb Hct MCV MCHC RDW Plt Count Lymph % (Auto) [place] % (Auto) Lymph # [place] # Seg Neutrophils % Seg Neuts % (Manual) Lymphocytes % (Manual) Monocytes % (Manual) Nucleated RBC % Seg Neutrophils # Seg Neutrophils # Man Lymphocytes # (Manual) Monocytes # (Manual) PT INR D-Dimer Heparin Anti-Xa Level POC ABG pH ABG pH POC ABG pCO2 POC ABG pO2 ABG pO2 ABG HCO3 ABG O2 Saturation ABG Base Excess ABG Hemoglobin Oxyhemoglobin Sodium Potassium Chloride Carbon Dioxide BUN Creatinine Glucose POC Glucose 117 H Lactic Acid 2.90 H* Calcium Ionized Calcium Phosphorus Magnesium Iron TIBC Ferritin Total Bilirubin Direct Bilirubin AST ALT Alkaline Phosphatase Total Creatine Kinase CK-MB (CK-2) Troponin T C-Reactive Protein 13.30 H Total Protein Albumin Triglycerides LDL Cholesterol Direct HDL Cholesterol Free T4 PTH Intact Urine WBC (Auto) Urine Creatinine Salicylates Acetaminophen Crossmatch 03/20/19 03/21/19 03/21/19 21:55 04:26 04:26 WBC 37.8 H RBC Hgb Hct MCV MCHC RDW 15.4 H Plt Count 36 L Lymph % (Auto) [place] % (Auto) Lymph # [place] # Seg Neutrophils % Seg Neuts % (Manual) 93.0 H Lymphocytes % (Manual) 3.0 L Monocytes % (Manual) Nucleated RBC % 1.0 H Seg Neutrophils # 34.6 H Seg Neutrophils # Man 35.2 H Lymphocytes # (Manual) 1.1 L Monocytes # (Manual) PT INR D-Dimer Heparin Anti-Xa Level POC ABG pH ABG pH POC ABG pCO2 POC ABG pO2 ABG pO2 ABG HCO3 ABG O2 Saturation ABG Base Excess ABG Hemoglobin Oxyhemoglobin Sodium 131 L Potassium Chloride 90.7 L Carbon Dioxide 21 L BUN 69 H Creatinine 5.7 H Glucose 170 H POC Glucose 128 H Lactic Acid Calcium 6.1 L D Ionized Calcium Phosphorus Magnesium Iron TIBC Ferritin Total Bilirubin 9.50 H Direct Bilirubin AST 308 H ALT 124 H Alkaline Phosphatase 327 H Total Creatine Kinase 05545 H CK-MB (CK-2) Troponin T C-Reactive Protein Total Protein 5.7 L Albumin 2.6 L Triglycerides LDL Cholesterol Direct HDL Cholesterol Free T4 PTH Intact Urine WBC (Auto) Urine Creatinine Salicylates Acetaminophen Crossmatch 03/21/19 03/21/19 03/21/19 05:17 05:39 08:29 WBC RBC Hgb Hct MCV MCHC RDW Plt Count Lymph % (Auto) [place] % (Auto) Lymph # [place] # Seg Neutrophils % Seg Neuts % (Manual) Lymphocytes % (Manual) Monocytes % (Manual) Nucleated RBC % Seg Neutrophils # Seg Neutrophils # Man Lymphocytes # (Manual) Monocytes # (Manual) PT INR D-Dimer Heparin Anti-Xa Level POC ABG pH ABG pH POC ABG pCO2 POC ABG pO2 209 H ABG pO2 ABG HCO3 ABG O2 Saturation ABG Base Excess ABG Hemoglobin Oxyhemoglobin Sodium Potassium Chloride Carbon Dioxide BUN Creatinine Glucose POC Glucose 145 H Lactic Acid Calcium Ionized Calcium Phosphorus Magnesium Iron TIBC Ferritin Total Bilirubin Direct Bilirubin AST ALT Alkaline Phosphatase Total Creatine Kinase 05628 H CK-MB (CK-2) Troponin T C-Reactive Protein Total Protein Albumin Triglycerides LDL Cholesterol Direct HDL Cholesterol Free T4 PTH Intact Urine WBC (Auto) Urine Creatinine Salicylates Acetaminophen Crossmatch 03/21/19 03/21/19 03/21/19 08:29 11:43 12:00 WBC RBC Hgb Hct MCV MCHC RDW Plt Count Lymph % (Auto) [place] % (Auto) Lymph # [place] # Seg Neutrophils % Seg Neuts % (Manual) Lymphocytes % (Manual) Monocytes % (Manual) Nucleated RBC % Seg Neutrophils # Seg Neutrophils # Man Lymphocytes # (Manual) Monocytes # (Manual) PT INR D-Dimer Heparin Anti-Xa Level POC ABG pH ABG pH POC ABG pCO2 POC ABG pO2 ABG pO2 ABG HCO3 ABG O2 Saturation ABG Base Excess ABG Hemoglobin Oxyhemoglobin Sodium Potassium Chloride Carbon Dioxide BUN Creatinine Glucose POC Glucose 123 H Lactic Acid 2.60 H* 2.20 H* Calcium Ionized Calcium Phosphorus Magnesium Iron TIBC Ferritin Total Bilirubin Direct Bilirubin AST ALT Alkaline Phosphatase Total Creatine Kinase CK-MB (CK-2) Troponin T C-Reactive Protein Total Protein Albumin Triglycerides LDL Cholesterol Direct HDL Cholesterol Free T4 PTH Intact Urine WBC (Auto) Urine Creatinine Salicylates Acetaminophen Crossmatch 03/21/19 03/21/19 03/21/19 14:11 18:28 19:32 WBC RBC Hgb Hct MCV MCHC RDW Plt Count Lymph % (Auto) [place] % (Auto) Lymph # [place] # Seg Neutrophils % Seg Neuts % (Manual) Lymphocytes % (Manual) Monocytes % (Manual) Nucleated RBC % Seg Neutrophils # Seg Neutrophils # Man Lymphocytes # (Manual) Monocytes # (Manual) PT INR D-Dimer Heparin Anti-Xa Level POC ABG pH 7.293 L ABG pH POC ABG pCO2 POC ABG pO2 ABG pO2 ABG HCO3 ABG O2 Saturation ABG Base Excess ABG Hemoglobin Oxyhemoglobin Sodium Potassium Chloride Carbon Dioxide BUN Creatinine Glucose POC Glucose 153 H Lactic Acid 2.10 H* Calcium Ionized Calcium Phosphorus Magnesium Iron TIBC Ferritin Total Bilirubin Direct Bilirubin AST ALT Alkaline Phosphatase Total Creatine Kinase CK-MB (CK-2) Troponin T C-Reactive Protein Total Protein Albumin Triglycerides LDL Cholesterol Direct HDL Cholesterol Free T4 PTH Intact Urine WBC (Auto) Urine Creatinine Salicylates Acetaminophen Crossmatch 03/21/19 03/22/19 03/22/19 23:38 05:08 05:51 WBC RBC Hgb Hct MCV MCHC RDW Plt Count Lymph % (Auto) [place] % (Auto) Lymph # [place] # Seg Neutrophils % Seg Neuts % (Manual) Lymphocytes % (Manual) Monocytes % (Manual) Nucleated RBC % Seg Neutrophils # Seg Neutrophils # Man Lymphocytes # (Manual) Monocytes # (Manual) PT INR D-Dimer Heparin Anti-Xa Level POC ABG pH 7.283 L ABG pH POC ABG pCO2 POC ABG pO2 53 L ABG pO2 ABG HCO3 ABG O2 Saturation ABG Base Excess ABG Hemoglobin Oxyhemoglobin Sodium Potassium Chloride Carbon Dioxide BUN Creatinine Glucose POC Glucose 149 H 131 H Lactic Acid Calcium Ionized Calcium Phosphorus Magnesium Iron TIBC Ferritin Total Bilirubin Direct Bilirubin AST ALT Alkaline Phosphatase Total Creatine Kinase CK-MB (CK-2) Troponin T C-Reactive Protein Total Protein Albumin Triglycerides LDL Cholesterol Direct HDL Cholesterol Free T4 PTH Intact Urine WBC (Auto) Urine Creatinine Salicylates Acetaminophen Crossmatch 03/22/19 03/22/19 03/22/19 08:00 08:00 18:19 WBC 36.7 H RBC Hgb 11.0 L Hct 33.5 L MCV MCHC RDW 15.5 H Plt Count 43 L Lymph % (Auto) [place] % (Auto) Lymph # [place] # Seg Neutrophils % Seg Neuts % (Manual) 87.0 H Lymphocytes % (Manual) 7.0 L Monocytes % (Manual) Nucleated RBC % Seg Neutrophils # Seg Neutrophils # Man 31.9 H Lymphocytes # (Manual) Monocytes # (Manual) PT INR D-Dimer Heparin Anti-Xa Level POC ABG pH ABG pH POC ABG pCO2 46.4 H POC ABG pO2 108 H ABG pO2 ABG HCO3 ABG O2 Saturation ABG Base Excess ABG Hemoglobin Oxyhemoglobin Sodium 132 L Potassium 5.6 H Chloride 89.6 L Carbon Dioxide 20 L BUN 101 H Creatinine 7.4 H Glucose 124 H POC Glucose Lactic Acid Calcium 5.2 L* Ionized Calcium Phosphorus Magnesium Iron TIBC Ferritin Total Bilirubin 2.80 H Direct Bilirubin AST 119 H ALT 86 H Alkaline Phosphatase 245 H Total Creatine Kinase CK-MB (CK-2) Troponin T C-Reactive Protein Total Protein 5.6 L Albumin 2.5 L Triglycerides LDL Cholesterol Direct HDL Cholesterol Free T4 PTH Intact Urine WBC (Auto) Urine Creatinine Salicylates Acetaminophen Crossmatch 03/22/19 03/23/19 03/23/19 20:37 04:49 05:28 WBC 35.9 H RBC Hgb 10.8 L Hct 33.2 L MCV MCHC RDW 15.5 H Plt Count 49 L Lymph % (Auto) [place] % (Auto) Lymph # [place] # Seg Neutrophils % Seg Neuts % (Manual) 81.0 H Lymphocytes % (Manual) 3.5 L Monocytes % (Manual) Nucleated RBC % Seg Neutrophils # Seg Neutrophils # Man 29.1 H Lymphocytes # (Manual) Monocytes # (Manual) 1.4 H PT INR D-Dimer Heparin Anti-Xa Level POC ABG pH 7.296 L ABG pH POC ABG pCO2 46.2 H POC ABG pO2 ABG pO2 ABG HCO3 ABG O2 Saturation ABG Base Excess ABG Hemoglobin Oxyhemoglobin Sodium 129 L Potassium 5.2 H Chloride 91.1 L Carbon Dioxide BUN 91 H Creatinine 6.6 H Glucose 190 H POC Glucose Lactic Acid Calcium 5.3 L* Ionized Calcium Phosphorus Magnesium Iron TIBC Ferritin Total Bilirubin 1.80 H Direct Bilirubin AST 80 H ALT 62 H Alkaline Phosphatase 209 H Total Creatine Kinase 9758 H CK-MB (CK-2) Troponin T C-Reactive Protein Total Protein 5.2 L Albumin 2.2 L Triglycerides LDL Cholesterol Direct HDL Cholesterol Free T4 PTH Intact Urine WBC (Auto) Urine Creatinine Salicylates Acetaminophen Crossmatch 03/23/19 03/23/19 03/23/19 05:28 05:31 11:33 WBC 29.7 H RBC 3.59 L Hgb 10.1 L Hct 31.1 L MCV MCHC RDW 15.4 H Plt Count 47 L Lymph % (Auto) [place] % (Auto) Lymph # [place] # Seg Neutrophils % Seg Neuts % (Manual) 89.0 H Lymphocytes % (Manual) 6.0 L Monocytes % (Manual) Nucleated RBC % 1.0 H Seg Neutrophils # Seg Neutrophils # Man 26.4 H Lymphocytes # (Manual) Monocytes # (Manual) PT INR D-Dimer Heparin Anti-Xa Level POC ABG pH ABG pH POC ABG pCO2 POC ABG pO2 ABG pO2 ABG HCO3 ABG O2 Saturation ABG Base Excess ABG Hemoglobin Oxyhemoglobin Sodium Potassium Chloride Carbon Dioxide BUN Creatinine Glucose POC Glucose 122 H 113 H Lactic Acid Calcium Ionized Calcium Phosphorus Magnesium Iron TIBC Ferritin Total Bilirubin Direct Bilirubin AST ALT Alkaline Phosphatase Total Creatine Kinase CK-MB (CK-2) Troponin T C-Reactive Protein Total Protein Albumin Triglycerides LDL Cholesterol Direct HDL Cholesterol Free T4 PTH Intact Urine WBC (Auto) Urine Creatinine Salicylates Acetaminophen Crossmatch 03/23/19 03/24/19 03/24/19 17:47 00:00 04:50 WBC 35.0 H RBC Hgb 10.4 L Hct 32.4 L MCV MCHC RDW Plt Count 60 L Lymph % (Auto) [place] % (Auto) Lymph # [place] # Seg Neutrophils % Seg Neuts % (Manual) 93.0 H Lymphocytes % (Manual) 5.0 L Monocytes % (Manual) Nucleated RBC % 7.0 H Seg Neutrophils # Seg Neutrophils # Man 32.6 H Lymphocytes # (Manual) Monocytes # (Manual) PT INR D-Dimer Heparin Anti-Xa Level POC ABG pH ABG pH POC ABG pCO2 POC ABG pO2 ABG pO2 ABG HCO3 ABG O2 Saturation ABG Base Excess ABG Hemoglobin Oxyhemoglobin Sodium Potassium Chloride Carbon Dioxide BUN Creatinine Glucose POC Glucose 111 H 108 H Lactic Acid Calcium Ionized Calcium Phosphorus Magnesium Iron TIBC Ferritin Total Bilirubin Direct Bilirubin AST ALT Alkaline Phosphatase Total Creatine Kinase CK-MB (CK-2) Troponin T C-Reactive Protein Total Protein Albumin Triglycerides LDL Cholesterol Direct HDL Cholesterol Free T4 PTH Intact Urine WBC (Auto) Urine Creatinine Salicylates Acetaminophen Crossmatch 03/24/19 03/24/19 03/24/19 04:50 05:06 12:55 WBC RBC Hgb Hct MCV MCHC RDW Plt Count Lymph % (Auto) [place] % (Auto) Lymph # [place] # Seg Neutrophils % Seg Neuts % (Manual) Lymphocytes % (Manual) Monocytes % (Manual) Nucleated RBC % Seg Neutrophils # Seg Neutrophils # Man Lymphocytes # (Manual) Monocytes # (Manual) PT INR D-Dimer Heparin Anti-Xa Level POC ABG pH ABG pH POC ABG pCO2 POC ABG pO2 ABG pO2 ABG HCO3 ABG O2 Saturation ABG Base Excess ABG Hemoglobin Oxyhemoglobin Sodium 134 L Potassium 5.1 H Chloride 95.3 L Carbon Dioxide 21 L BUN 85 H Creatinine 6.4 H Glucose 109 H POC Glucose 112 H 110 H Lactic Acid Calcium 5.8 L* Ionized Calcium Phosphorus Magnesium Iron TIBC Ferritin Total Bilirubin Direct Bilirubin AST ALT Alkaline Phosphatase Total Creatine Kinase 5747 H CK-MB (CK-2) Troponin T C-Reactive Protein Total Protein Albumin Triglycerides LDL Cholesterol Direct HDL Cholesterol Free T4 PTH Intact Urine WBC (Auto) Urine Creatinine Salicylates Acetaminophen Crossmatch 03/24/19 03/25/19 03/25/19 23:29 05:00 05:00 WBC RBC Hgb Hct MCV MCHC RDW Plt Count Lymph % (Auto) [place] % (Auto) Lymph # [place] # Seg Neutrophils % Seg Neuts % (Manual) Lymphocytes % (Manual) Monocytes % (Manual) Nucleated RBC % Seg Neutrophils # Seg Neutrophils # Man Lymphocytes # (Manual) Monocytes # (Manual) PT INR D-Dimer Heparin Anti-Xa Level POC ABG pH ABG pH POC ABG pCO2 POC ABG pO2 ABG pO2 ABG HCO3 ABG O2 Saturation ABG Base Excess ABG Hemoglobin Oxyhemoglobin Sodium 133 L Potassium Chloride 94.0 L Carbon Dioxide 21 L BUN 81 H Creatinine 6.4 H Glucose POC Glucose 109 H Lactic Acid Calcium 5.5 L* Ionized Calcium Phosphorus Magnesium Iron TIBC Ferritin Total Bilirubin Direct Bilirubin AST 80 H ALT Alkaline Phosphatase 202 H Total Creatine Kinase 3589 H CK-MB (CK-2) Troponin T C-Reactive Protein Total Protein 5.3 L Albumin 2.4 L Triglycerides LDL Cholesterol Direct HDL Cholesterol Free T4 PTH Intact 329.9 H Urine WBC (Auto) Urine Creatinine Salicylates Acetaminophen Crossmatch 03/25/19 03/25/19 03/26/19 05:00 06:30 04:30 WBC 23.3 H RBC 3.61 L Hgb 10.2 L Hct 31.2 L MCV MCHC RDW Plt Count 57 L Lymph % (Auto) [place] % (Auto) Lymph # [place] # Seg Neutrophils % Seg Neuts % (Manual) 92.0 H Lymphocytes % (Manual) 6.0 L Monocytes % (Manual) Nucleated RBC % Seg Neutrophils # Seg Neutrophils # Man 21.4 H Lymphocytes # (Manual) Monocytes # (Manual) PT INR D-Dimer Heparin Anti-Xa Level POC ABG pH ABG pH 7.326 L POC ABG pCO2 POC ABG pO2 ABG pO2 109.5 H 137.4 H ABG HCO3 18.8 L 18.6 L ABG O2 Saturation ABG Base Excess -4.4 L -6.8 L ABG Hemoglobin 10.1 L 9.9 L Oxyhemoglobin Sodium Potassium Chloride Carbon Dioxide BUN Creatinine Glucose POC Glucose Lactic Acid Calcium Ionized Calcium Phosphorus Magnesium Iron TIBC Ferritin Total Bilirubin Direct Bilirubin AST ALT Alkaline Phosphatase Total Creatine Kinase CK-MB (CK-2) Troponin T C-Reactive Protein Total Protein Albumin Triglycerides LDL Cholesterol Direct HDL Cholesterol Free T4 PTH Intact Urine WBC (Auto) Urine Creatinine Salicylates Acetaminophen Crossmatch 03/26/19 03/26/19 03/26/19 23:22 Unknown Unknown WBC 19.5 H RBC 3.44 L Hgb 9.8 L Hct 29.9 L MCV MCHC RDW Plt Count 85 L Lymph % (Auto) [place] % (Auto) Lymph # [place] # Seg Neutrophils % Seg Neuts % (Manual) 95.0 H Lymphocytes % (Manual) 3.0 L Monocytes % (Manual) Nucleated RBC % Seg Neutrophils # Seg Neutrophils # Man 18.5 H Lymphocytes # (Manual) 0.6 L Monocytes # (Manual) PT INR D-Dimer Heparin Anti-Xa Level POC ABG pH ABG pH POC ABG pCO2 POC ABG pO2 ABG pO2 ABG HCO3 ABG O2 Saturation ABG Base Excess ABG Hemoglobin Oxyhemoglobin Sodium 135 L Potassium 5.2 H D Chloride 92.2 L Carbon Dioxide 18 L BUN 109 H Creatinine 8.5 H Glucose 117 H POC Glucose 69 L Lactic Acid Calcium 4.5 L* D Ionized Calcium Phosphorus Magnesium Iron TIBC Ferritin Total Bilirubin Direct Bilirubin AST ALT Alkaline Phosphatase Total Creatine Kinase 4527 H CK-MB (CK-2) Troponin T C-Reactive Protein Total Protein Albumin Triglycerides LDL Cholesterol Direct HDL Cholesterol Free T4 PTH Intact Urine WBC (Auto) Urine Creatinine Salicylates Acetaminophen Crossmatch 03/27/19 03/27/19 03/27/19 04:30 04:30 09:00 WBC 19.2 H RBC 3.42 L Hgb 9.9 L Hct 30.0 L MCV MCHC RDW Plt Count 84 L Lymph % (Auto) [place] % (Auto) Lymph # [place] # Seg Neutrophils % Seg Neuts % (Manual) Lymphocytes % (Manual) Monocytes % (Manual) Nucleated RBC % Seg Neutrophils # Seg Neutrophils # Man Lymphocytes # (Manual) Monocytes # (Manual) PT INR D-Dimer Heparin Anti-Xa Level POC ABG pH ABG pH POC ABG pCO2 POC ABG pO2 ABG pO2 ABG HCO3 ABG O2 Saturation ABG Base Excess ABG Hemoglobin Oxyhemoglobin Sodium 135 L Potassium Chloride 93.5 L Carbon Dioxide BUN 84 H Creatinine 7.1 H Glucose POC Glucose Lactic Acid Calcium 5.0 L* Ionized Calcium Phosphorus Magnesium Iron TIBC Ferritin Total Bilirubin Direct Bilirubin AST 78 H ALT Alkaline Phosphatase 135 H Total Creatine Kinase 4677 H CK-MB (CK-2) Troponin T C-Reactive Protein Total Protein 4.8 L Albumin 2.3 L Triglycerides 409 H LDL Cholesterol Direct HDL Cholesterol Free T4 PTH Intact Urine WBC (Auto) Urine Creatinine Salicylates Acetaminophen Crossmatch 03/27/19 03/27/19 03/27/19 12:37 14:15 14:15 WBC RBC Hgb 9.7 L Hct 29.5 L MCV MCHC RDW Plt Count 87 L Lymph % (Auto) [place] % (Auto) Lymph # [place] # Seg Neutrophils % Seg Neuts % (Manual) Lymphocytes % (Manual) Monocytes % (Manual) Nucleated RBC % Seg Neutrophils # Seg Neutrophils # Man Lymphocytes # (Manual) Monocytes # (Manual) PT 15.9 H INR 1.30 H D-Dimer Heparin Anti-Xa Level POC ABG pH ABG pH POC ABG pCO2 POC ABG pO2 ABG pO2 ABG HCO3 ABG O2 Saturation ABG Base Excess ABG Hemoglobin Oxyhemoglobin Sodium Potassium Chloride Carbon Dioxide BUN Creatinine Glucose POC Glucose 129 H Lactic Acid Calcium Ionized Calcium Phosphorus Magnesium Iron TIBC Ferritin Total Bilirubin Direct Bilirubin AST ALT Alkaline Phosphatase Total Creatine Kinase CK-MB (CK-2) Troponin T C-Reactive Protein Total Protein Albumin Triglycerides LDL Cholesterol Direct HDL Cholesterol Free T4 PTH Intact Urine WBC (Auto) Urine Creatinine Salicylates Acetaminophen Crossmatch 03/27/19 03/27/19 03/27/19 18:00 19:22 19:23 WBC RBC Hgb Hct MCV MCHC RDW Plt Count Lymph % (Auto) [place] % (Auto) Lymph # [place] # Seg Neutrophils % Seg Neuts % (Manual) Lymphocytes % (Manual) Monocytes % (Manual) Nucleated RBC % Seg Neutrophils # Seg Neutrophils # Man Lymphocytes # (Manual) Monocytes # (Manual) PT INR D-Dimer Heparin Anti-Xa Level < 0.10 L POC ABG pH ABG pH POC ABG pCO2 POC ABG pO2 ABG pO2 ABG HCO3 ABG O2 Saturation ABG Base Excess ABG Hemoglobin Oxyhemoglobin Sodium Potassium Chloride Carbon Dioxide BUN Creatinine Glucose POC Glucose 121 H Lactic Acid Calcium Ionized Calcium Phosphorus Magnesium Iron TIBC Ferritin Total Bilirubin Direct Bilirubin AST ALT Alkaline Phosphatase Total Creatine Kinase 4517 H CK-MB (CK-2) Troponin T C-Reactive Protein Total Protein Albumin Triglycerides LDL Cholesterol Direct HDL Cholesterol Free T4 PTH Intact Urine WBC (Auto) Urine Creatinine Salicylates Acetaminophen Crossmatch 03/27/19 03/27/19 03/28/19 22:10 23:52 03:49 WBC RBC Hgb Hct MCV MCHC RDW Plt Count Lymph % (Auto) [place] % (Auto) Lymph # [place] # Seg Neutrophils % Seg Neuts % (Manual) Lymphocytes % (Manual) Monocytes % (Manual) Nucleated RBC % Seg Neutrophils # Seg Neutrophils # Man Lymphocytes # (Manual) Monocytes # (Manual) PT INR D-Dimer Heparin Anti-Xa Level POC ABG pH 7.338 L ABG pH POC ABG pCO2 33.1 L POC ABG pO2 ABG pO2 ABG HCO3 ABG O2 Saturation ABG Base Excess ABG Hemoglobin Oxyhemoglobin Sodium Potassium Chloride Carbon Dioxide BUN Creatinine Glucose POC Glucose 113 H 117 H Lactic Acid Calcium Ionized Calcium Phosphorus Magnesium Iron TIBC Ferritin Total Bilirubin Direct Bilirubin AST ALT Alkaline Phosphatase Total Creatine Kinase CK-MB (CK-2) Troponin T C-Reactive Protein Total Protein Albumin Triglycerides LDL Cholesterol Direct HDL Cholesterol Free T4 PTH Intact Urine WBC (Auto) Urine Creatinine Salicylates Acetaminophen Crossmatch 03/28/19 03/28/19 03/28/19 05:13 05:13 06:18 WBC RBC Hgb Hct MCV MCHC RDW Plt Count Lymph % (Auto) [place] % (Auto) Lymph # [place] # Seg Neutrophils % Seg Neuts % (Manual) Lymphocytes % (Manual) Monocytes % (Manual) Nucleated RBC % Seg Neutrophils # Seg Neutrophils # Man Lymphocytes # (Manual) Monocytes # (Manual) PT INR D-Dimer Heparin Anti-Xa Level 0.23 L POC ABG pH ABG pH POC ABG pCO2 POC ABG pO2 ABG pO2 ABG HCO3 ABG O2 Saturation ABG Base Excess ABG Hemoglobin Oxyhemoglobin Sodium 135 L Potassium 5.5 H D Chloride 95.1 L Carbon Dioxide 16 L D BUN 129 H Creatinine 9.3 H Glucose 158 H POC Glucose 202 H Lactic Acid Calcium 4.0 L* D Ionized Calcium Phosphorus 12.40 H Magnesium Iron TIBC Ferritin Total Bilirubin Direct Bilirubin AST ALT Alkaline Phosphatase Total Creatine Kinase 4266 H CK-MB (CK-2) Troponin T C-Reactive Protein Total Protein Albumin Triglycerides LDL Cholesterol Direct HDL Cholesterol Free T4 PTH Intact Urine WBC (Auto) Urine Creatinine Salicylates Acetaminophen Crossmatch 03/28/19 03/28/19 03/28/19 08:25 10:00 12:00 WBC RBC Hgb 4.9 L* D Hct 15.4 L* D MCV MCHC RDW Plt Count Lymph % (Auto) [place] % (Auto) Lymph # [place] # Seg Neutrophils % Seg Neuts % (Manual) Lymphocytes % (Manual) Monocytes % (Manual) Nucleated RBC % Seg Neutrophils # Seg Neutrophils # Man Lymphocytes # (Manual) Monocytes # (Manual) PT 17.9 H INR 1.52 H D-Dimer 4845.98 H Heparin Anti-Xa Level POC ABG pH ABG pH POC ABG pCO2 POC ABG pO2 ABG pO2 ABG HCO3 ABG O2 Saturation ABG Base Excess ABG Hemoglobin Oxyhemoglobin Sodium Potassium Chloride Carbon Dioxide BUN Creatinine Glucose POC Glucose Lactic Acid Calcium Ionized Calcium Phosphorus Magnesium Iron TIBC Ferritin Total Bilirubin Direct Bilirubin AST ALT Alkaline Phosphatase Total Creatine Kinase CK-MB (CK-2) Troponin T C-Reactive Protein Total Protein Albumin Triglycerides LDL Cholesterol Direct HDL Cholesterol Free T4 PTH Intact Urine WBC (Auto) Urine Creatinine Salicylates Acetaminophen Crossmatch See Detail 03/28/19 03/28/19 03/28/19 12:28 14:10 17:43 WBC RBC Hgb 5.9 L* Hct 18.3 L* MCV MCHC RDW Plt Count Lymph % (Auto) [place] % (Auto) Lymph # [place] # Seg Neutrophils % Seg Neuts % (Manual) Lymphocytes % (Manual) Monocytes % (Manual) Nucleated RBC % Seg Neutrophils # Seg Neutrophils # Man Lymphocytes # (Manual) Monocytes # (Manual) PT INR D-Dimer Heparin Anti-Xa Level POC ABG pH ABG pH POC ABG pCO2 POC ABG pO2 ABG pO2 ABG HCO3 ABG O2 Saturation ABG Base Excess ABG Hemoglobin Oxyhemoglobin Sodium Potassium Chloride Carbon Dioxide BUN Creatinine Glucose POC Glucose 153 H 159 H Lactic Acid Calcium Ionized Calcium Phosphorus Magnesium Iron TIBC Ferritin Total Bilirubin Direct Bilirubin AST ALT Alkaline Phosphatase Total Creatine Kinase CK-MB (CK-2) Troponin T C-Reactive Protein Total Protein Albumin Triglycerides LDL Cholesterol Direct HDL Cholesterol Free T4 PTH Intact Urine WBC (Auto) Urine Creatinine Salicylates Acetaminophen Crossmatch 03/28/19 03/28/19 03/28/19 18:10 Unknown 23:59 WBC 24.8 H RBC 3.42 L Hgb 10.2 L D Hct 31.1 L D MCV MCHC RDW 15.4 H Plt Count 54 L Lymph % (Auto) [place] % (Auto) Lymph # [place] # Seg Neutrophils % Seg Neuts % (Manual) 91.0 H Lymphocytes % (Manual) 8.0 L Monocytes % (Manual) Nucleated RBC % Seg Neutrophils # Seg Neutrophils # Man 22.6 H Lymphocytes # (Manual) Monocytes # (Manual) PT INR D-Dimer Heparin Anti-Xa Level POC ABG pH ABG pH POC ABG pCO2 POC ABG pO2 ABG pO2 ABG HCO3 ABG O2 Saturation ABG Base Excess ABG Hemoglobin Oxyhemoglobin Sodium Potassium 5.7 H Chloride Carbon Dioxide BUN Creatinine Glucose POC Glucose 107 H Lactic Acid Calcium Ionized Calcium Phosphorus Magnesium Iron TIBC Ferritin Total Bilirubin Direct Bilirubin AST ALT Alkaline Phosphatase Total Creatine Kinase CK-MB (CK-2) Troponin T C-Reactive Protein Total Protein Albumin Triglycerides LDL Cholesterol Direct HDL Cholesterol Free T4 PTH Intact Urine WBC (Auto) Urine Creatinine Salicylates Acetaminophen Crossmatch 03/29/19 03/29/19 03/29/19 04:29 05:46 06:22 WBC RBC Hgb 8.6 L Hct 25.7 L MCV MCHC RDW Plt Count 93 L Lymph % (Auto) [place] % (Auto) Lymph # [place] # Seg Neutrophils % Seg Neuts % (Manual) Lymphocytes % (Manual) Monocytes % (Manual) Nucleated RBC % Seg Neutrophils # Seg Neutrophils # Man Lymphocytes # (Manual) Monocytes # (Manual) PT INR D-Dimer Heparin Anti-Xa Level POC ABG pH ABG pH POC ABG pCO2 32.2 L POC ABG pO2 ABG pO2 ABG HCO3 ABG O2 Saturation ABG Base Excess ABG Hemoglobin Oxyhemoglobin Sodium Potassium Chloride Carbon Dioxide BUN Creatinine Glucose POC Glucose 113 H Lactic Acid Calcium Ionized Calcium Phosphorus Magnesium Iron TIBC Ferritin Total Bilirubin Direct Bilirubin AST ALT Alkaline Phosphatase Total Creatine Kinase CK-MB (CK-2) Troponin T C-Reactive Protein Total Protein Albumin Triglycerides LDL Cholesterol Direct HDL Cholesterol Free T4 PTH Intact Urine WBC (Auto) Urine Creatinine Salicylates Acetaminophen Crossmatch 03/29/19 03/29/19 03/29/19 06:22 06:22 06:22 WBC 23.2 H RBC 2.91 L Hgb 8.6 L Hct 25.8 L MCV MCHC RDW Plt Count 91 L Lymph % (Auto) [place] % (Auto) Lymph # [place] # Seg Neutrophils % Seg Neuts % (Manual) Lymphocytes % (Manual) Monocytes % (Manual) Nucleated RBC % Seg Neutrophils # Seg Neutrophils # Man Lymphocytes # (Manual) Monocytes # (Manual) PT INR D-Dimer Heparin Anti-Xa Level POC ABG pH ABG pH POC ABG pCO2 POC ABG pO2 ABG pO2 ABG HCO3 ABG O2 Saturation ABG Base Excess ABG Hemoglobin Oxyhemoglobin Sodium 133 L Potassium Chloride 93.8 L Carbon Dioxide 18 L BUN 109 H Creatinine 7.4 H Glucose 124 H POC Glucose Lactic Acid Calcium 4.6 L* Ionized Calcium Phosphorus Magnesium Iron TIBC Ferritin Total Bilirubin Direct Bilirubin AST ALT Alkaline Phosphatase Total Creatine Kinase 3401 H CK-MB (CK-2) Troponin T C-Reactive Protein Total Protein Albumin Triglycerides 309 H LDL Cholesterol Direct HDL Cholesterol Free T4 PTH Intact Urine WBC (Auto) Urine Creatinine Salicylates Acetaminophen Crossmatch 03/29/19 03/29/19 03/29/19 11:48 11:48 18:24 WBC RBC Hgb 7.8 L Hct 23.2 L MCV MCHC RDW Plt Count Lymph % (Auto) [place] % (Auto) Lymph # [place] # Seg Neutrophils % Seg Neuts % (Manual) Lymphocytes % (Manual) Monocytes % (Manual) Nucleated RBC % Seg Neutrophils # Seg Neutrophils # Man Lymphocytes # (Manual) Monocytes # (Manual) PT 15.3 H INR 1.24 H D-Dimer Heparin Anti-Xa Level POC ABG pH ABG pH POC ABG pCO2 POC ABG pO2 ABG pO2 ABG HCO3 ABG O2 Saturation ABG Base Excess ABG Hemoglobin Oxyhemoglobin Sodium Potassium Chloride Carbon Dioxide BUN Creatinine Glucose POC Glucose 122 H Lactic Acid Calcium Ionized Calcium Phosphorus Magnesium Iron TIBC Ferritin Total Bilirubin Direct Bilirubin AST ALT Alkaline Phosphatase Total Creatine Kinase CK-MB (CK-2) Troponin T C-Reactive Protein Total Protein Albumin Triglycerides LDL Cholesterol Direct HDL Cholesterol Free T4 PTH Intact Urine WBC (Auto) Urine Creatinine Salicylates Acetaminophen Crossmatch 03/30/19 03/30/1919 00:40 04:31 05:04 WBC RBC Hgb 7.6 L Hct 23.0 L MCV MCHC RDW Plt Count Lymph % (Auto) [place] % (Auto) Lymph # [place] # Seg Neutrophils % Seg Neuts % (Manual) Lymphocytes % (Manual) Monocytes % (Manual) Nucleated RBC % Seg Neutrophils # Seg Neutrophils # Man Lymphocytes # (Manual) Monocytes # (Manual) PT INR D-Dimer Heparin Anti-Xa Level POC ABG pH 7.346 L ABG pH POC ABG pCO2 POC ABG pO2 62 L ABG pO2 ABG HCO3 ABG O2 Saturation ABG Base Excess ABG Hemoglobin Oxyhemoglobin Sodium Potassium Chloride Carbon Dioxide BUN 79 H Creatinine 6.4 H Glucose POC Glucose Lactic Acid Calcium 6.1 L D Ionized Calcium Phosphorus Magnesium Iron TIBC Ferritin Total Bilirubin Direct Bilirubin AST ALT Alkaline Phosphatase Total Creatine Kinase CK-MB (CK-2) Troponin T C-Reactive Protein Total Protein Albumin Triglycerides LDL Cholesterol Direct HDL Cholesterol Free T4 PTH Intact Urine WBC (Auto) Urine Creatinine Salicylates Acetaminophen Crossmatch 03/30/19 03/30/19 03/30/19 08:45 12:09 22:43 WBC 14.3 H RBC 2.33 L Hgb 7.0 L 7.4 L Hct 21.0 L 22.3 L MCV MCHC RDW 15.6 H Plt Count 135 L Lymph % (Auto) [place] % (Auto) Lymph # [place] # Seg Neutrophils % Seg Neuts % (Manual) Lymphocytes % (Manual) Monocytes % (Manual) Nucleated RBC % Seg Neutrophils # Seg Neutrophils # Man Lymphocytes # (Manual) Monocytes # (Manual) PT INR D-Dimer Heparin Anti-Xa Level POC ABG pH ABG pH POC ABG pCO2 POC ABG pO2 ABG pO2 ABG HCO3 ABG O2 Saturation ABG Base Excess ABG Hemoglobin Oxyhemoglobin Sodium Potassium Chloride Carbon Dioxide BUN Creatinine Glucose POC Glucose Lactic Acid Calcium Ionized Calcium 3.7 L Phosphorus Magnesium Iron TIBC Ferritin Total Bilirubin Direct Bilirubin AST ALT Alkaline Phosphatase Total Creatine Kinase CK-MB (CK-2) Troponin T C-Reactive Protein Total Protein Albumin Triglycerides LDL Cholesterol Direct HDL Cholesterol Free T4 PTH Intact Urine WBC (Auto) Urine Creatinine Salicylates Acetaminophen Crossmatch 03/30/19 03/30/19 03/31/19 23:38 Unknown 04:44 WBC 11.5 H RBC 2.40 L Hgb 7.3 L Hct 21.9 L MCV MCHC RDW 15.4 H Plt Count Lymph % (Auto) 10.6 L [place] % (Auto) Lymph # [place] # Seg Neutrophils % 81.7 H Seg Neuts % (Manual) Lymphocytes % (Manual) Monocytes % (Manual) Nucleated RBC % Seg Neutrophils # 9.4 H Seg Neutrophils # Man Lymphocytes # (Manual) Monocytes # (Manual) PT INR D-Dimer Heparin Anti-Xa Level POC ABG pH ABG pH POC ABG pCO2 POC ABG pO2 ABG pO2 ABG HCO3 ABG O2 Saturation ABG Base Excess ABG Hemoglobin Oxyhemoglobin Sodium Potassium Chloride Carbon Dioxide BUN Creatinine Glucose POC Glucose 155 H Lactic Acid Calcium Ionized Calcium Phosphorus Magnesium Iron TIBC Ferritin Total Bilirubin Direct Bilirubin 0.4 H AST 63 H ALT Alkaline Phosphatase Total Creatine Kinase CK-MB (CK-2) Troponin T C-Reactive Protein Total Protein 4.9 L Albumin 2.2 L Triglycerides LDL Cholesterol Direct HDL Cholesterol Free T4 PTH Intact Urine WBC (Auto) Urine Creatinine Salicylates Acetaminophen Crossmatch 03/31/19 03/31/19 03/31/19 04:44 05:44 08:20 WBC RBC Hgb Hct MCV MCHC RDW Plt Count Lymph % (Auto) [place] % (Auto) Lymph # [place] # Seg Neutrophils % Seg Neuts % (Manual) Lymphocytes % (Manual) Monocytes % (Manual) Nucleated RBC % Seg Neutrophils # Seg Neutrophils # Man Lymphocytes # (Manual) Monocytes # (Manual) PT INR D-Dimer Heparin Anti-Xa Level POC ABG pH ABG pH POC ABG pCO2 53.5 H POC ABG pO2 62 L ABG pO2 ABG HCO3 ABG O2 Saturation ABG Base Excess ABG Hemoglobin Oxyhemoglobin Sodium 135 L Potassium Chloride 96.7 L Carbon Dioxide 19 L BUN 94 H Creatinine 7.8 H Glucose POC Glucose Lactic Acid Calcium 5.3 L* Ionized Calcium Phosphorus 8.20 H Magnesium Iron TIBC Ferritin Total Bilirubin Direct Bilirubin 0.4 H AST 60 H ALT Alkaline Phosphatase Total Creatine Kinase CK-MB (CK-2) Troponin T C-Reactive Protein Total Protein 4.8 L Albumin 2.1 L Triglycerides LDL Cholesterol Direct HDL Cholesterol Free T4 PTH Intact Urine WBC (Auto) Urine Creatinine Salicylates Acetaminophen Crossmatch 03/31/19 04/01/19 04/01/19 22:14 04:27 04:27 WBC RBC 2.60 L Hgb 8.0 L Hct 24.1 L MCV MCHC RDW 15.7 H Plt Count Lymph % (Auto) 7.9 L [place] % (Auto) Lymph # 0.7 L [place] # Seg Neutrophils % 83.6 H Seg Neuts % (Manual) Lymphocytes % (Manual) Monocytes % (Manual) Nucleated RBC % Seg Neutrophils # Seg Neutrophils # Man Lymphocytes # (Manual) Monocytes # (Manual) PT INR D-Dimer Heparin Anti-Xa Level POC ABG pH 7.286 L ABG pH POC ABG pCO2 54.7 H POC ABG pO2 179 H ABG pO2 ABG HCO3 ABG O2 Saturation ABG Base Excess ABG Hemoglobin Oxyhemoglobin Sodium Potassium Chloride Carbon Dioxide BUN 68 H Creatinine 6.6 H Glucose POC Glucose Lactic Acid Calcium 6.5 L D Ionized Calcium Phosphorus 7.30 H Magnesium Iron TIBC Ferritin Total Bilirubin Direct Bilirubin AST ALT Alkaline Phosphatase Total Creatine Kinase 1652 H CK-MB (CK-2) Troponin T C-Reactive Protein Total Protein Albumin Triglycerides LDL Cholesterol Direct HDL Cholesterol Free T4 PTH Intact Urine WBC (Auto) Urine Creatinine Salicylates Acetaminophen Crossmatch 04/01/19 04/01/19 04/01/19 05:14 05:37 18:37 WBC RBC Hgb Hct MCV MCHC RDW Plt Count Lymph % (Auto) [place] % (Auto) Lymph # [place] # Seg Neutrophils % Seg Neuts % (Manual) Lymphocytes % (Manual) Monocytes % (Manual) Nucleated RBC % Seg Neutrophils # Seg Neutrophils # Man Lymphocytes # (Manual) Monocytes # (Manual) PT INR D-Dimer Heparin Anti-Xa Level POC ABG pH 7.283 L ABG pH POC ABG pCO2 53.4 H POC ABG pO2 241 H ABG pO2 ABG HCO3 ABG O2 Saturation ABG Base Excess ABG Hemoglobin Oxyhemoglobin Sodium Potassium Chloride Carbon Dioxide BUN Creatinine Glucose POC Glucose 111 H 119 H Lactic Acid Calcium Ionized Calcium Phosphorus Magnesium Iron TIBC Ferritin Total Bilirubin Direct Bilirubin AST ALT Alkaline Phosphatase Total Creatine Kinase CK-MB (CK-2) Troponin T C-Reactive Protein Total Protein Albumin Triglycerides LDL Cholesterol Direct HDL Cholesterol Free T4 PTH Intact Urine WBC (Auto) Urine Creatinine Salicylates Acetaminophen Crossmatch 04/01/19 04/02/19 04/02/19 21:28 04:40 05:03 WBC RBC 2.36 L Hgb 7.2 L Hct 21.9 L MCV MCHC RDW 16.0 H Plt Count Lymph % (Auto) 10.8 L [place] % (Auto) Lymph # 0.8 L [place] # Seg Neutrophils % 80.3 H Seg Neuts % (Manual) Lymphocytes % (Manual) Monocytes % (Manual) Nucleated RBC % Seg Neutrophils # Seg Neutrophils # Man Lymphocytes # (Manual) Monocytes # (Manual) PT INR D-Dimer Heparin Anti-Xa Level POC ABG pH 7.299 L 7.300 L ABG pH POC ABG pCO2 48.2 H 45.2 H POC ABG pO2 133 H 107 H ABG pO2 ABG HCO3 ABG O2 Saturation ABG Base Excess ABG Hemoglobin Oxyhemoglobin Sodium Potassium Chloride Carbon Dioxide BUN Creatinine Glucose POC Glucose Lactic Acid Calcium Ionized Calcium Phosphorus Magnesium Iron TIBC Ferritin Total Bilirubin Direct Bilirubin AST ALT Alkaline Phosphatase Total Creatine Kinase CK-MB (CK-2) Troponin T C-Reactive Protein Total Protein Albumin Triglycerides LDL Cholesterol Direct HDL Cholesterol Free T4 PTH Intact Urine WBC (Auto) Urine Creatinine Salicylates Acetaminophen Crossmatch 04/02/19 04/02/19 04/02/19 05:03 05:03 12:15 WBC RBC Hgb 7.4 L Hct 22.6 L MCV MCHC RDW Plt Count Lymph % (Auto) [place] % (Auto) Lymph # [place] # Seg Neutrophils % Seg Neuts % (Manual) Lymphocytes % (Manual) Monocytes % (Manual) Nucleated RBC % Seg Neutrophils # Seg Neutrophils # Man Lymphocytes # (Manual) Monocytes # (Manual) PT INR D-Dimer Heparin Anti-Xa Level POC ABG pH ABG pH POC ABG pCO2 POC ABG pO2 ABG pO2 ABG HCO3 ABG O2 Saturation ABG Base Excess ABG Hemoglobin Oxyhemoglobin Sodium 136 L Potassium Chloride 97.8 L Carbon Dioxide 18 L BUN 82 H Creatinine 8.2 H Glucose POC Glucose Lactic Acid Calcium 6.7 L Ionized Calcium Phosphorus 7.50 H Magnesium Iron 26 L TIBC 138 L Ferritin 607.0 H Total Bilirubin Direct Bilirubin AST ALT Alkaline Phosphatase Total Creatine Kinase CK-MB (CK-2) Troponin T C-Reactive Protein Total Protein Albumin Triglycerides LDL Cholesterol Direct HDL Cholesterol Free T4 PTH Intact Urine WBC (Auto) Urine Creatinine Salicylates Acetaminophen Crossmatch 04/02/19 04/02/19 04/03/19 16:34 17:14 04:18 WBC RBC Hgb Hct MCV MCHC RDW Plt Count Lymph % (Auto) [place] % (Auto) Lymph # [place] # Seg Neutrophils % Seg Neuts % (Manual) Lymphocytes % (Manual) Monocytes % (Manual) Nucleated RBC % Seg Neutrophils # Seg Neutrophils # Man Lymphocytes # (Manual) Monocytes # (Manual) PT INR D-Dimer Heparin Anti-Xa Level POC ABG pH ABG pH POC ABG pCO2 POC ABG pO2 146 H ABG pO2 ABG HCO3 ABG O2 Saturation ABG Base Excess ABG Hemoglobin Oxyhemoglobin Sodium Potassium Chloride Carbon Dioxide BUN Creatinine Glucose POC Glucose 108 H Lactic Acid Calcium Ionized Calcium Phosphorus Magnesium Iron TIBC Ferritin Total Bilirubin Direct Bilirubin AST ALT Alkaline Phosphatase Total Creatine Kinase CK-MB (CK-2) Troponin T C-Reactive Protein Total Protein Albumin Triglycerides LDL Cholesterol Direct HDL Cholesterol Free T4 PTH Intact Urine WBC (Auto) Urine Creatinine Salicylates Acetaminophen Crossmatch See Detail 04/03/19 04/03/19 04/03/19 04:25 08:30 18:24 WBC RBC 2.40 L Hgb 7.3 L Hct 21.9 L MCV MCHC RDW Plt Count Lymph % (Auto) [place] % (Auto) 7.7 H Lymph # 0.9 L [place] # Seg Neutrophils % 74.6 H Seg Neuts % (Manual) Lymphocytes % (Manual) Monocytes % (Manual) Nucleated RBC % Seg Neutrophils # Seg Neutrophils # Man Lymphocytes # (Manual) Monocytes # (Manual) PT INR D-Dimer Heparin Anti-Xa Level POC ABG pH ABG pH POC ABG pCO2 POC ABG pO2 ABG pO2 ABG HCO3 ABG O2 Saturation ABG Base Excess ABG Hemoglobin Oxyhemoglobin Sodium 136 L Potassium Chloride 97.0 L Carbon Dioxide BUN 58 H Creatinine 7.3 H Glucose POC Glucose 106 H Lactic Acid Calcium 7.5 L Ionized Calcium Phosphorus 5.80 H D Magnesium Iron TIBC Ferritin Total Bilirubin Direct Bilirubin AST ALT Alkaline Phosphatase Total Creatine Kinase CK-MB (CK-2) Troponin T C-Reactive Protein Total Protein Albumin Triglycerides LDL Cholesterol Direct HDL Cholesterol Free T4 PTH Intact Urine WBC (Auto) Urine Creatinine Salicylates Acetaminophen Crossmatch 04/03/19 04/04/19 04/04/19 23:43 04:47 04:47 WBC RBC 2.72 L Hgb 8.3 L Hct 24.7 L MCV MCHC RDW 15.6 H Plt Count Lymph % (Auto) [place] % (Auto) 10.1 H Lymph # 0.8 L [place] # Seg Neutrophils % 71.4 H Seg Neuts % (Manual) Lymphocytes % (Manual) Monocytes % (Manual) Nucleated RBC % Seg Neutrophils # Seg Neutrophils # Man Lymphocytes # (Manual) Monocytes # (Manual) PT INR D-Dimer Heparin Anti-Xa Level POC ABG pH ABG pH POC ABG pCO2 POC ABG pO2 ABG pO2 123.8 H ABG HCO3 ABG O2 Saturation ABG Base Excess -3.0 L ABG Hemoglobin 7.9 L Oxyhemoglobin Sodium 134 L Potassium Chloride 97.9 L Carbon Dioxide BUN 64 H Creatinine 8.1 H Glucose POC Glucose Lactic Acid Calcium 7.2 L Ionized Calcium Phosphorus Magnesium Iron TIBC Ferritin Total Bilirubin Direct Bilirubin AST ALT Alkaline Phosphatase Total Creatine Kinase CK-MB (CK-2) Troponin T C-Reactive Protein Total Protein Albumin Triglycerides LDL Cholesterol Direct HDL Cholesterol Free T4 PTH Intact Urine WBC (Auto) Urine Creatinine Salicylates Acetaminophen Crossmatch 04/04/19 04/04/19 04/04/19 06:07 13:40 18:18 WBC RBC Hgb Hct MCV MCHC RDW Plt Count Lymph % (Auto) [place] % (Auto) Lymph # [place] # Seg Neutrophils % Seg Neuts % (Manual) Lymphocytes % (Manual) Monocytes % (Manual) Nucleated RBC % Seg Neutrophils # Seg Neutrophils # Man Lymphocytes # (Manual) Monocytes # (Manual) PT INR D-Dimer Heparin Anti-Xa Level POC ABG pH ABG pH POC ABG pCO2 POC ABG pO2 ABG pO2 95.9 H ABG HCO3 ABG O2 Saturation ABG Base Excess -3.0 L ABG Hemoglobin 8.5 L Oxyhemoglobin Sodium Potassium Chloride Carbon Dioxide BUN Creatinine Glucose POC Glucose 107 H 107 H Lactic Acid Calcium Ionized Calcium Phosphorus Magnesium Iron TIBC Ferritin Total Bilirubin Direct Bilirubin AST ALT Alkaline Phosphatase Total Creatine Kinase CK-MB (CK-2) Troponin T C-Reactive Protein Total Protein Albumin Triglycerides LDL Cholesterol Direct HDL Cholesterol Free T4 PTH Intact Urine WBC (Auto) Urine Creatinine Salicylates Acetaminophen Crossmatch 04/04/19 04/05/19 04/05/19 21:22 04:09 04:09 WBC RBC 2.76 L Hgb 8.4 L Hct 25.4 L MCV MCHC RDW 15.8 H Plt Count 133 L Lymph % (Auto) [place] % (Auto) 9.6 H Lymph # 0.7 L [place] # Seg Neutrophils % 72.6 H Seg Neuts % (Manual) Lymphocytes % (Manual) Monocytes % (Manual) Nucleated RBC % Seg Neutrophils # Seg Neutrophils # Man Lymphocytes # (Manual) Monocytes # (Manual) PT INR D-Dimer Heparin Anti-Xa Level POC ABG pH ABG pH POC ABG pCO2 47.2 H POC ABG pO2 137 H ABG pO2 ABG HCO3 ABG O2 Saturation ABG Base Excess ABG Hemoglobin Oxyhemoglobin Sodium 136 L Potassium Chloride Carbon Dioxide BUN 46 H Creatinine 6.7 H Glucose POC Glucose Lactic Acid Calcium 7.7 L Ionized Calcium Phosphorus Magnesium Iron TIBC Ferritin Total Bilirubin Direct Bilirubin AST ALT Alkaline Phosphatase Total Creatine Kinase CK-MB (CK-2) Troponin T C-Reactive Protein Total Protein Albumin Triglycerides LDL Cholesterol Direct HDL Cholesterol Free T4 PTH Intact Urine WBC (Auto) Urine Creatinine Salicylates Acetaminophen Crossmatch 04/05/19 04/05/19 04/05/19 05:28 06:14 16:50 WBC RBC Hgb Hct MCV MCHC RDW Plt Count Lymph % (Auto) [place] % (Auto) Lymph # [place] # Seg Neutrophils % Seg Neuts % (Manual) Lymphocytes % (Manual) Monocytes % (Manual) Nucleated RBC % Seg Neutrophils # Seg Neutrophils # Man Lymphocytes # (Manual) Monocytes # (Manual) PT INR D-Dimer Heparin Anti-Xa Level POC ABG pH ABG pH POC ABG pCO2 POC ABG pO2 67 L ABG pO2 ABG HCO3 ABG O2 Saturation ABG Base Excess ABG Hemoglobin Oxyhemoglobin Sodium Potassium Chloride Carbon Dioxide BUN Creatinine Glucose POC Glucose 108 H Lactic Acid Calcium Ionized Calcium Phosphorus Magnesium Iron TIBC Ferritin Total Bilirubin Direct Bilirubin AST ALT Alkaline Phosphatase Total Creatine Kinase CK-MB (CK-2) Troponin T C-Reactive Protein Total Protein Albumin Triglycerides LDL Cholesterol Direct HDL Cholesterol Free T4 PTH Intact Urine WBC (Auto) 40.0 H Urine Creatinine Salicylates Acetaminophen Crossmatch 04/05/19 04/06/19 04/06/19 17:22 00:13 04:44 WBC RBC 2.48 L Hgb 7.5 L Hct 22.9 L MCV MCHC RDW 16.0 H Plt Count 107 L Lymph % (Auto) [place] % (Auto) 10.7 H Lymph # 1.0 L [place] # Seg Neutrophils % Seg Neuts % (Manual) Lymphocytes % (Manual) Monocytes % (Manual) Nucleated RBC % Seg Neutrophils # Seg Neutrophils # Man Lymphocytes # (Manual) Monocytes # (Manual) PT INR D-Dimer Heparin Anti-Xa Level POC ABG pH ABG pH POC ABG pCO2 POC ABG pO2 ABG pO2 ABG HCO3 ABG O2 Saturation ABG Base Excess ABG Hemoglobin Oxyhemoglobin Sodium Potassium Chloride Carbon Dioxide BUN Creatinine Glucose POC Glucose 118 H 138 H Lactic Acid Calcium Ionized Calcium Phosphorus Magnesium Iron TIBC Ferritin Total Bilirubin Direct Bilirubin AST ALT Alkaline Phosphatase Total Creatine Kinase CK-MB (CK-2) Troponin T C-Reactive Protein Total Protein Albumin Triglycerides LDL Cholesterol Direct HDL Cholesterol Free T4 PTH Intact Urine WBC (Auto) Urine Creatinine Salicylates Acetaminophen Crossmatch 04/06/19 04/06/19 04/06/19 04:44 05:20 05:23 WBC RBC Hgb Hct MCV MCHC RDW Plt Count Lymph % (Auto) [place] % (Auto) Lymph # [place] # Seg Neutrophils % Seg Neuts % (Manual) Lymphocytes % (Manual) Monocytes % (Manual) Nucleated RBC % Seg Neutrophils # Seg Neutrophils # Man Lymphocytes # (Manual) Monocytes # (Manual) PT INR D-Dimer Heparin Anti-Xa Level POC ABG pH ABG pH POC ABG pCO2 POC ABG pO2 ABG pO2 104.0 H ABG HCO3 ABG O2 Saturation ABG Base Excess -2.1 L ABG Hemoglobin 7.3 L Oxyhemoglobin Sodium Potassium Chloride Carbon Dioxide BUN 64 H Creatinine 8.2 H Glucose 103 H POC Glucose 118 H Lactic Acid Calcium 7.3 L Ionized Calcium Phosphorus Magnesium Iron TIBC Ferritin Total Bilirubin Direct Bilirubin AST ALT Alkaline Phosphatase Total Creatine Kinase CK-MB (CK-2) Troponin T C-Reactive Protein Total Protein Albumin Triglycerides LDL Cholesterol Direct HDL Cholesterol Free T4 PTH Intact Urine WBC (Auto) Urine Creatinine Salicylates Acetaminophen Crossmatch 04/06/19 04/07/19 04/07/19 12:02 05:40 05:40 WBC RBC 2.59 L Hgb 7.9 L Hct 23.8 L MCV MCHC RDW 15.8 H Plt Count 89 L Lymph % (Auto) [place] % (Auto) 10.3 H Lymph # 1.1 L [place] # Seg Neutrophils % Seg Neuts % (Manual) Lymphocytes % (Manual) Monocytes % (Manual) Nucleated RBC % Seg Neutrophils # Seg Neutrophils # Man Lymphocytes # (Manual) Monocytes # (Manual) PT INR D-Dimer Heparin Anti-Xa Level POC ABG pH ABG pH POC ABG pCO2 POC ABG pO2 ABG pO2 ABG HCO3 ABG O2 Saturation ABG Base Excess ABG Hemoglobin Oxyhemoglobin Sodium 136 L Potassium 3.5 L Chloride Carbon Dioxide BUN 46 H Creatinine 6.2 H Glucose POC Glucose 108 H Lactic Acid Calcium 7.9 L Ionized Calcium Phosphorus Magnesium Iron TIBC Ferritin Total Bilirubin Direct Bilirubin AST ALT Alkaline Phosphatase Total Creatine Kinase CK-MB (CK-2) Troponin T C-Reactive Protein Total Protein Albumin Triglycerides LDL Cholesterol Direct HDL Cholesterol Free T4 PTH Intact Urine WBC (Auto) Urine Creatinine Salicylates Acetaminophen Crossmatch 04/07/19 04/09/19 04/09/19 12:57 04:28 04:28 WBC RBC 2.85 L Hgb 8.7 L Hct 26.2 L MCV MCHC RDW 15.6 H Plt Count Lymph % (Auto) [place] % (Auto) 10.4 H Lymph # 1.0 L [place] # Seg Neutrophils % 73.3 H Seg Neuts % (Manual) Lymphocytes % (Manual) Monocytes % (Manual) Nucleated RBC % Seg Neutrophils # Seg Neutrophils # Man Lymphocytes # (Manual) Monocytes # (Manual) PT INR D-Dimer Heparin Anti-Xa Level POC ABG pH ABG pH POC ABG pCO2 POC ABG pO2 107 H ABG pO2 ABG HCO3 ABG O2 Saturation ABG Base Excess ABG Hemoglobin Oxyhemoglobin Sodium Potassium 3.5 L Chloride 97.8 L Carbon Dioxide BUN 62 H Creatinine 8.1 H Glucose POC Glucose Lactic Acid Calcium 8.2 L Ionized Calcium Phosphorus 5.10 H Magnesium Iron TIBC Ferritin Total Bilirubin Direct Bilirubin AST ALT Alkaline Phosphatase Total Creatine Kinase CK-MB (CK-2) Troponin T C-Reactive Protein Total Protein Albumin Triglycerides LDL Cholesterol Direct HDL Cholesterol Free T4 PTH Intact Urine WBC (Auto) Urine Creatinine Salicylates Acetaminophen Crossmatch 04/10/19 04/11/19 04/11/19 18:15 00:25 04:16 WBC 11.5 H RBC 2.91 L Hgb 8.9 L Hct 27.6 L MCV 95 H MCHC RDW 17.5 H Plt Count Lymph % (Auto) [place] % (Auto) Lymph # [place] # Seg Neutrophils % Seg Neuts % (Manual) 71.0 H Lymphocytes % (Manual) Monocytes % (Manual) 8.0 H Nucleated RBC % Seg Neutrophils # Seg Neutrophils # Man 8.2 H Lymphocytes # (Manual) Monocytes # (Manual) 0.9 H PT INR D-Dimer Heparin Anti-Xa Level POC ABG pH ABG pH POC ABG pCO2 POC ABG pO2 ABG pO2 ABG HCO3 ABG O2 Saturation ABG Base Excess ABG Hemoglobin Oxyhemoglobin Sodium Potassium Chloride Carbon Dioxide BUN Creatinine Glucose POC Glucose 109 H 114 H Lactic Acid Calcium Ionized Calcium Phosphorus Magnesium Iron TIBC Ferritin Total Bilirubin Direct Bilirubin AST ALT Alkaline Phosphatase Total Creatine Kinase CK-MB (CK-2) Troponin T C-Reactive Protein Total Protein Albumin Triglycerides LDL Cholesterol Direct HDL Cholesterol Free T4 PTH Intact Urine WBC (Auto) Urine Creatinine Salicylates Acetaminophen Crossmatch 04/11/19 04/11/19 04/11/19 06:47 09:21 12:15 WBC RBC Hgb Hct MCV MCHC RDW Plt Count Lymph % (Auto) [place] % (Auto) Lymph # [place] # Seg Neutrophils % Seg Neuts % (Manual) Lymphocytes % (Manual) Monocytes % (Manual) Nucleated RBC % Seg Neutrophils # Seg Neutrophils # Man Lymphocytes # (Manual) Monocytes # (Manual) PT INR D-Dimer Heparin Anti-Xa Level POC ABG pH ABG pH POC ABG pCO2 POC ABG pO2 ABG pO2 ABG HCO3 ABG O2 Saturation ABG Base Excess ABG Hemoglobin Oxyhemoglobin Sodium Potassium 3.5 L Chloride Carbon Dioxide BUN 45 H Creatinine 6.0 H Glucose 113 H POC Glucose 106 H 109 H Lactic Acid Calcium Ionized Calcium Phosphorus Magnesium Iron TIBC Ferritin Total Bilirubin Direct Bilirubin AST ALT Alkaline Phosphatase Total Creatine Kinase CK-MB (CK-2) Troponin T C-Reactive Protein Total Protein Albumin Triglycerides LDL Cholesterol Direct HDL Cholesterol Free T4 PTH Intact Urine WBC (Auto) Urine Creatinine Salicylates Acetaminophen Crossmatch 04/11/19 04/12/19 04/12/19 18:42 12:13 23:52 WBC RBC Hgb Hct MCV MCHC RDW Plt Count Lymph % (Auto) [place] % (Auto) Lymph # [place] # Seg Neutrophils % Seg Neuts % (Manual) Lymphocytes % (Manual) Monocytes % (Manual) Nucleated RBC % Seg Neutrophils # Seg Neutrophils # Man Lymphocytes # (Manual) Monocytes # (Manual) PT INR D-Dimer Heparin Anti-Xa Level POC ABG pH ABG pH POC ABG pCO2 POC ABG pO2 ABG pO2 ABG HCO3 ABG O2 Saturation ABG Base Excess ABG Hemoglobin Oxyhemoglobin Sodium Potassium Chloride Carbon Dioxide BUN Creatinine Glucose POC Glucose 107 H 115 H 124 H Lactic Acid Calcium Ionized Calcium Phosphorus Magnesium Iron TIBC Ferritin Total Bilirubin Direct Bilirubin AST ALT Alkaline Phosphatase Total Creatine Kinase CK-MB (CK-2) Troponin T C-Reactive Protein Total Protein Albumin Triglycerides LDL Cholesterol Direct HDL Cholesterol Free T4 PTH Intact Urine WBC (Auto) Urine Creatinine Salicylates Acetaminophen Crossmatch 04/13/19 04/13/19 04/13/19 05:00 05:00 05:47 WBC 11.7 H RBC 2.97 L Hgb 8.8 L Hct 27.3 L MCV MCHC RDW 16.1 H Plt Count Lymph % (Auto) 9.5 L [place] % (Auto) 9.9 H Lymph # 1.1 L [place] # 1.2 H Seg Neutrophils % 78.6 H Seg Neuts % (Manual) Lymphocytes % (Manual) Monocytes % (Manual) Nucleated RBC % Seg Neutrophils # 9.2 H Seg Neutrophils # Man Lymphocytes # (Manual) Monocytes # (Manual) PT INR D-Dimer Heparin Anti-Xa Level POC ABG pH ABG pH POC ABG pCO2 POC ABG pO2 ABG pO2 ABG HCO3 ABG O2 Saturation ABG Base Excess ABG Hemoglobin Oxyhemoglobin Sodium Potassium 3.5 L Chloride Carbon Dioxide BUN 42 H Creatinine 4.6 H Glucose 106 H POC Glucose 107 H Lactic Acid Calcium 10.6 H D Ionized Calcium Phosphorus 5.90 H Magnesium Iron TIBC Ferritin Total Bilirubin Direct Bilirubin AST ALT Alkaline Phosphatase Total Creatine Kinase CK-MB (CK-2) Troponin T C-Reactive Protein Total Protein 5.8 L Albumin 2.5 L Triglycerides LDL Cholesterol Direct HDL Cholesterol Free T4 PTH Intact Urine WBC (Auto) Urine Creatinine Salicylates Acetaminophen Crossmatch 04/13/19 04/14/19 04/14/19 17:32 00:00 03:55 WBC RBC Hgb Hct MCV MCHC RDW Plt Count Lymph % (Auto) [place] % (Auto) Lymph # [place] # Seg Neutrophils % Seg Neuts % (Manual) Lymphocytes % (Manual) Monocytes % (Manual) Nucleated RBC % Seg Neutrophils # Seg Neutrophils # Man Lymphocytes # (Manual) Monocytes # (Manual) PT INR D-Dimer Heparin Anti-Xa Level POC ABG pH ABG pH POC ABG pCO2 POC ABG pO2 ABG pO2 ABG HCO3 ABG O2 Saturation ABG Base Excess ABG Hemoglobin Oxyhemoglobin Sodium Potassium 3.0 L Chloride Carbon Dioxide BUN 30 H Creatinine 3.1 H Glucose POC Glucose 112 H 120 H Lactic Acid Calcium 10.8 H Ionized Calcium Phosphorus Magnesium Iron TIBC Ferritin Total Bilirubin Direct Bilirubin AST ALT Alkaline Phosphatase Total Creatine Kinase CK-MB (CK-2) Troponin T C-Reactive Protein Total Protein Albumin Triglycerides LDL Cholesterol Direct HDL Cholesterol Free T4 PTH Intact Urine WBC (Auto) Urine Creatinine Salicylates Acetaminophen Crossmatch 04/14/19 04/14/19 04/15/19 11:56 23:28 05:11 WBC 13.0 H RBC 2.93 L Hgb 8.6 L Hct 26.5 L MCV MCHC RDW 16.5 H Plt Count Lymph % (Auto) 12.2 L [place] % (Auto) 9.1 H Lymph # [place] # 1.2 H Seg Neutrophils % 77.6 H Seg Neuts % (Manual) Lymphocytes % (Manual) Monocytes % (Manual) Nucleated RBC % Seg Neutrophils # 10.1 H Seg Neutrophils # Man Lymphocytes # (Manual) Monocytes # (Manual) PT INR D-Dimer Heparin Anti-Xa Level POC ABG pH ABG pH POC ABG pCO2 POC ABG pO2 ABG pO2 ABG HCO3 ABG O2 Saturation ABG Base Excess ABG Hemoglobin Oxyhemoglobin Sodium Potassium Chloride Carbon Dioxide BUN Creatinine Glucose POC Glucose 109 H 112 H Lactic Acid Calcium Ionized Calcium Phosphorus Magnesium Iron TIBC Ferritin Total Bilirubin Direct Bilirubin AST ALT Alkaline Phosphatase Total Creatine Kinase CK-MB (CK-2) Troponin T C-Reactive Protein Total Protein Albumin Triglycerides LDL Cholesterol Direct HDL Cholesterol Free T4 PTH Intact Urine WBC (Auto) Urine Creatinine Salicylates Acetaminophen Crossmatch 04/15/19 04/15/19 04/15/19 05:11 05:31 18:03 WBC RBC Hgb Hct MCV MCHC RDW Plt Count Lymph % (Auto) [place] % (Auto) Lymph # [place] # Seg Neutrophils % Seg Neuts % (Manual) Lymphocytes % (Manual) Monocytes % (Manual) Nucleated RBC % Seg Neutrophils # Seg Neutrophils # Man Lymphocytes # (Manual) Monocytes # (Manual) PT INR D-Dimer Heparin Anti-Xa Level POC ABG pH ABG pH POC ABG pCO2 POC ABG pO2 ABG pO2 ABG HCO3 ABG O2 Saturation ABG Base Excess ABG Hemoglobin Oxyhemoglobin Sodium Potassium 3.2 L Chloride Carbon Dioxide BUN 44 H Creatinine 3.6 H Glucose 106 H POC Glucose 110 H 121 H Lactic Acid Calcium 12.0 H Ionized Calcium Phosphorus 5.00 H Magnesium Iron TIBC Ferritin Total Bilirubin Direct Bilirubin AST ALT Alkaline Phosphatase Total Creatine Kinase CK-MB (CK-2) Troponin T C-Reactive Protein Total Protein Albumin Triglycerides LDL Cholesterol Direct HDL Cholesterol Free T4 PTH Intact Urine WBC (Auto) Urine Creatinine Salicylates Acetaminophen Crossmatch 04/16/19 04/16/19 04/17/19 05:07 05:07 04:15 WBC 12.6 H RBC 3.12 L Hgb 9.0 L Hct 28.2 L MCV MCHC RDW 16.6 H Plt Count Lymph % (Auto) 10.3 L [place] % (Auto) 9.8 H Lymph # [place] # 1.2 H Seg Neutrophils % 78.2 H Seg Neuts % (Manual) Lymphocytes % (Manual) Monocytes % (Manual) Nucleated RBC % Seg Neutrophils # 9.9 H Seg Neutrophils # Man Lymphocytes # (Manual) Monocytes # (Manual) PT INR D-Dimer Heparin Anti-Xa Level POC ABG pH ABG pH POC ABG pCO2 POC ABG pO2 ABG pO2 ABG HCO3 ABG O2 Saturation ABG Base Excess ABG Hemoglobin Oxyhemoglobin Sodium 147 H 150 H Potassium 3.5 L 3.1 L Chloride Carbon Dioxide 32 H BUN 54 H 65 H Creatinine 3.8 H 4.0 H Glucose 102 H 107 H POC Glucose Lactic Acid Calcium 11.7 H 12.0 H Ionized Calcium Phosphorus 5.40 H Magnesium Iron TIBC Ferritin Total Bilirubin Direct Bilirubin AST ALT Alkaline Phosphatase Total Creatine Kinase CK-MB (CK-2) Troponin T C-Reactive Protein 7.10 H Total Protein Albumin Triglycerides LDL Cholesterol Direct HDL Cholesterol Free T4 PTH Intact Urine WBC (Auto) Urine Creatinine Salicylates Acetaminophen Crossmatch 04/17/19 04/17/19 04/17/19 04:15 06:05 12:49 WBC 15.8 H RBC 3.32 L Hgb 9.5 L Hct 29.9 L MCV MCHC RDW 16.9 H Plt Count Lymph % (Auto) 12.6 L [place] % (Auto) 11.1 H Lymph # [place] # 1.7 H Seg Neutrophils % 74.7 H Seg Neuts % (Manual) Lymphocytes % (Manual) Monocytes % (Manual) Nucleated RBC % Seg Neutrophils # 11.8 H Seg Neutrophils # Man Lymphocytes # (Manual) Monocytes # (Manual) PT INR D-Dimer Heparin Anti-Xa Level POC ABG pH ABG pH POC ABG pCO2 POC ABG pO2 ABG pO2 ABG HCO3 ABG O2 Saturation ABG Base Excess ABG Hemoglobin Oxyhemoglobin Sodium Potassium Chloride Carbon Dioxide BUN Creatinine Glucose POC Glucose 111 H 108 H Lactic Acid Calcium Ionized Calcium Phosphorus Magnesium Iron TIBC Ferritin Total Bilirubin Direct Bilirubin AST ALT Alkaline Phosphatase Total Creatine Kinase CK-MB (CK-2) Troponin T C-Reactive Protein Total Protein Albumin Triglycerides LDL Cholesterol Direct HDL Cholesterol Free T4 PTH Intact Urine WBC (Auto) Urine Creatinine Salicylates Acetaminophen Crossmatch 04/18/19 04/18/19 04/18/19 00:23 04:41 04:41 WBC 19.4 H RBC 3.03 L Hgb 8.6 L Hct 27.5 L MCV MCHC 31 L RDW 16.9 H Plt Count Lymph % (Auto) [place] % (Auto) Lymph # [place] # Seg Neutrophils % Seg Neuts % (Manual) Lymphocytes % (Manual) Monocytes % (Manual) Nucleated RBC % Seg Neutrophils # Seg Neutrophils # Man Lymphocytes # (Manual) Monocytes # (Manual) PT INR D-Dimer Heparin Anti-Xa Level POC ABG pH ABG pH POC ABG pCO2 POC ABG pO2 ABG pO2 ABG HCO3 ABG O2 Saturation ABG Base Excess ABG Hemoglobin Oxyhemoglobin Sodium 152 H Potassium 3.0 L Chloride Carbon Dioxide BUN 80 H Creatinine 4.3 H Glucose 103 H POC Glucose 115 H Lactic Acid Calcium 11.4 H Ionized Calcium Phosphorus Magnesium Iron TIBC Ferritin Total Bilirubin Direct Bilirubin AST ALT Alkaline Phosphatase Total Creatine Kinase CK-MB (CK-2) Troponin T C-Reactive Protein Total Protein Albumin Triglycerides LDL Cholesterol Direct HDL Cholesterol Free T4 PTH Intact Urine WBC (Auto) Urine Creatinine Salicylates Acetaminophen Crossmatch 04/18/19 04/18/19 04/18/19 06:17 12:16 18:10 WBC RBC Hgb Hct MCV MCHC RDW Plt Count Lymph % (Auto) [place] % (Auto) Lymph # [place] # Seg Neutrophils % Seg Neuts % (Manual) Lymphocytes % (Manual) Monocytes % (Manual) Nucleated RBC % Seg Neutrophils # Seg Neutrophils # Man Lymphocytes # (Manual) Monocytes # (Manual) PT INR D-Dimer Heparin Anti-Xa Level POC ABG pH ABG pH POC ABG pCO2 POC ABG pO2 ABG pO2 ABG HCO3 ABG O2 Saturation ABG Base Excess ABG Hemoglobin Oxyhemoglobin Sodium Potassium Chloride Carbon Dioxide BUN Creatinine Glucose POC Glucose 124 H 119 H 111 H Lactic Acid Calcium Ionized Calcium Phosphorus Magnesium Iron TIBC Ferritin Total Bilirubin Direct Bilirubin AST ALT Alkaline Phosphatase Total Creatine Kinase CK-MB (CK-2) Troponin T C-Reactive Protein Total Protein Albumin Triglycerides LDL Cholesterol Direct HDL Cholesterol Free T4 PTH Intact Urine WBC (Auto) Urine Creatinine Salicylates Acetaminophen Crossmatch 04/19/19 04/19/19 04/20/19 03:49 05:27 09:09 WBC RBC Hgb Hct MCV MCHC RDW Plt Count Lymph % (Auto) [place] % (Auto) Lymph # [place] # Seg Neutrophils % Seg Neuts % (Manual) Lymphocytes % (Manual) Monocytes % (Manual) Nucleated RBC % Seg Neutrophils # Seg Neutrophils # Man Lymphocytes # (Manual) Monocytes # (Manual) PT INR D-Dimer Heparin Anti-Xa Level POC ABG pH ABG pH POC ABG pCO2 POC ABG pO2 ABG pO2 ABG HCO3 ABG O2 Saturation ABG Base Excess ABG Hemoglobin Oxyhemoglobin Sodium 147 H 150 H Potassium 3.3 L Chloride 108.9 H Carbon Dioxide BUN 45 H 70 H Creatinine 2.9 H 4.1 H Glucose 105 H POC Glucose 124 H Lactic Acid Calcium 10.6 H 11.6 H Ionized Calcium Phosphorus Magnesium Iron TIBC Ferritin Total Bilirubin Direct Bilirubin AST ALT Alkaline Phosphatase Total Creatine Kinase CK-MB (CK-2) Troponin T C-Reactive Protein Total Protein Albumin Triglycerides LDL Cholesterol Direct HDL Cholesterol Free T4 PTH Intact Urine WBC (Auto) Urine Creatinine Salicylates Acetaminophen Crossmatch
[2019-04-20] MEDS ORDERED: SODIUM CHLORIDE 0.9% 1000 ML 2,000 ML ONE (12:11)
--- NOTE | 2019-04-20 12:36 | Progress Note ---
Assessment and Plan Cultures: 03/16/2019 sputum: salivary contamination 03/16/2019 Blood culture: no growth 03/17/2019 Urine culture no growth 03/17/2019 throat culture: no growth 03/26/2019 Blood culture: no growth 03/27/2019 Blood culture negative. 04/04/2019 blood culture NGTD 04/05/2019 urine culture: no growth 04/11/2019 blood culture: no growth 04/15/2019 blood culture: no growth Assessment: 43y/o male with possible psych history admitted on 03/16/2019 with: 1) Septic shock: Resolved. Fever after right IJ exchanged overwire on 03/27, fever had improved. Brain MRI showed no acute intracranial abnormality, mild nonspecific chronic white matter changes, fluid throughout the sinuses and mastoid air cells. Venous US + right IJ DVT. Completed empiric Cefepime x 10 days on 04/06/2019. Initial septic shock - Possible Infectious etiology v/s possibility of Neuroleptic Malignant Syndrome given psych history, high fever of 105F and extremely elevated CPK of >100K. Unclear if he was on any psych med. From ID standpoint, we will continue broad coverage for acute bacterial meningitis, tick borne illness, aspiration pneumonia. Blood culture negative UA with mild pyuria. HIV rapid negative. Strep A rapid ag negative. No obvious infectious source identified yet. 2) High fevers with elevated WBC: ?drug fever v/s infected HD cath. Blood cultures have remained negative. CXR with no obvious pneumonia. 3) Probable aspiration pneumonia, fluid overload, acute resp failure: on oxygen. Previously completed abx. 4) Acute encephalopathy: improving, awake, alert, calm. 5) Acute renal failure: renally dosing all abx, now on iHD. 6) Elevated LFTs/shock liver: resolved. 7) Thrombocytopenia: platelet normalized. 8) Rhabdomyolysis: CK normalized. 9) Multiple superficial wounds: do not appear infected. Continue wound care. Recommendations: awaiting HD catheter removal after dialysis today continue renally adjusted IV aztreonam and linezolid (in case of possible drug fever) for now if he remains afebrile post HD catheter removal, will d/c abx. Multiple blood cultures have remained negative f/u LANDY, C3, C4 Continue wound care Dr. Spencer monreal tomorrow. Katherine Elizabeth MD, FACP [facility] ([facility] C: [phone] O: [phone] F: [phone] Subjective Date of service: 04/20/19 Principal diagnosis: anemia - DVT IJ Interval history: Spiked a fever of 102 F yesterday evening. Currently getting HD with plans to remove HD cath. Patient denies any complaints. Objective - Exam Narrative Exam: Physical Exam: Constitutional: awake, alert, follows commands Head, Ears, Nose: Normocephalic, atraumatic. External ears, nose normal Eyes: Conjunctivae/corneas clear. No icterus. No ptosis. Neck: Supple, no meningeal signs. R IJ HD cath + Cardiovascular: S1, S2 normal. Respiratory: clear b/l GI: Soft, non-tender; bowel sounds normal. No peritoneal signs Musculoskeletal: anasarca+ with pedal and scrotal edema + Skin: superficial wounds with dressings + Hem/Lymphatic: No palpable cervical or supraclavicular nodes. No lymphangitis Psych: no agitation Neurological: awake, alert, follows commands - Constitutional Vitals: Vital Signs Temp Pulse Resp BP Pulse Ox 99.1 F 87 24 102/68 97 04/20/19 09:55 04/20/19 11:15 04/20/19 09:55 04/20/19 11:15 04/20/19 08:47 Temperature -Last 24 Hours Temperature 99.1 F Temperature 99.4 F Temperature 99 F Temperature 102.3 F Temperature 102.3 F Temperature 99.0 F - Labs CBC & Chem 7: 04/18/19 04:41 04/20/19 09:09 Labs: Abnormal lab results 04/20/19 Range/Units 09:09 Sodium 150 H (137-145) mmol/L Chloride 108.9 H (98-107) mmol/L BUN 70 H (9-20) mg/dL Creatinine 4.1 H (0.8-1.5) mg/dL Glucose 105 H (75-100) mg/dL Calcium 11.6 H (8.4-10.2) mg/dL
[2019-04-20] MEDS: EPOETIN ALFA 20,000 UNIT/1 ML INJ SUB-Q PRN (12:47)
[2019-04-20] MEDS ORDERED: SODIUM BICARBONATE 325 MG TAB FEEDTUBE PRN ×2 (13:17→13:29)
[2019-04-20] MEDS ORDERED: SIMPLE SYRUP 15 ML FEEDTUBE PRN ×4 (13:17→13:29)
[2019-04-20] MEDS ORDERED: LIPASE 10,500/PROTEASE 25,000/AMYLASE 43,750 (UNITS) DR CAP FEEDTUBE PRN ×2 (13:17→13:29)
--- NOTE | 2019-04-20 15:15 | Progress Note ---
Assessment and Plan Assessment and plan: Acute hypoxic respiratory failure. Continue BiPAP as clinically indicated. Atrial fibrillation. Continue Metoprolol. Cardiology following. No systemic AC regarding AFib in setting of anemia, thrombocytopenia, GI bleed. Acute blood loss anemia. Patient with GI bleed secondary to peptic ulcer diseas e. EGD completed per GI. Continue PRBCs as needed. I'll of H&H. GI bleed/peptic ulcer disease. Continue PPI. Transfuse PRBCs as needed. Sepsis/septic shock. Continue antibiotics per ID. Follow-up blood cultures. Levaquin added. ID following. Patient with recurrent fevers. Ischemic hepatitis/shock liver. Elevated LFTs improved. Viral hepatitis panel negative. Acute kidney injury. Patient now with hemodialysis. Patient was started on hemodialysis on 03/18/19 due to worsening metabolic acidosis and hyperkalemia. Baseline renal function is unknown. CT abdomen was negative for obstructive nephropathy. Avoid nephrotoxic agents. Continue hemodialysis per nephrology. Toxic metabolic encephalopathy. Brain MRI showed no acute intracranial abnormality, mild nonspecific chronic white matter changes, fluid throughout the sinuses and mastoid air cells. Swelling both upper ext L>R Doppler US : no DVT LUE Hypokalemia. Replete potassium as needed. Hypernatremia. Bumex was stopped. Follow-up BMP Nephrology following Na 150 today Thrombocytopenia. Etiology likely secondary to sepsis. Resolved. Rhabdomyolysis. CK normalized. Full code History Interval history: Still having fever asking when he can start eating food Hospitalist Physical - Physical exam Narrative exam: Gen: Not in acute distress, lying in bed, morbidly obese HEENT: Normocephalic, atraumatic, NG tube Neck: supple, no JVD Heart: S1 and S2 reg, no murmurs, rubs or gallop Lungs: Clear to auscultation, no rhonchi, no wheeze Abd: soft, non tender, non distended, normal BS, Ext: bilateral upper ext edema, L>R, no clubbing, no cyanosis, dressing over left elbow,eschar anterior left elbow Neuro: Awake, drowsy, no focal neurological signs - Constitutional Vitals: Temp Pulse Resp BP Pulse Ox 99.7 F H 81 25 H 109/65 98 04/20/19 12:00 04/20/19 14:21 04/20/19 13:00 04/20/19 14:21 04/20/19 13:00 General appearance: Present: obese Results - Labs CBC & Chem 7: 04/18/19 04:41 04/20/19 09:09 Labs: Laboratory Last Values WBC 19.4 K/mm3 (4.5-11.0) H 04/18/19 04:41 RBC 3.03 M/mm3 (3.65-5.03) L 04/18/19 04:41 Hgb 8.6 gm/dl (11.8-15.2) L 04/18/19 04:41 Hct 27.5 % (35.5-45.6) L 04/18/19 04:41 MCV 91 fl (84-94) 04/18/19 04:41 MCH 28 pg (28-32) 04/18/19 04:41 MCHC 31 % (32-34) L 04/18/19 04:41 RDW 16.9 % (13.2-15.2) H 04/18/19 04:41 Plt Count 230 K/mm3 (140-440) 04/18/19 04:41 Lymph % (Auto) 12.6 % (13.4-35.0) L 04/17/19 04:15 [place] % (Auto) 11.1 % (0.0-7.3) H 04/17/19 04:15 Eos % (Auto) 0.8 % (0.0-4.3) 04/17/19 04:15 Baso % (Auto) 0.8 % (0.0-1.8) 04/17/19 04:15 Lymph # 2.0 K/mm3 (1.2-5.4) 04/17/19 04:15 [place] # 1.7 K/mm3 (0.0-0.8) H 04/17/19 04:15 Eos # 0.1 K/mm3 (0.0-0.4) 04/17/19 04:15 Baso # 0.1 K/mm3 (0.0-0.1) 04/17/19 04:15 Add Manual Diff Complete 04/11/19 04:16 Total Counted 100 04/11/19 04:16 Seg Neutrophils % 74.7 % (40.0-70.0) H 04/17/19 04:15 Seg Neuts % (Manual) 71.0 % (40.0-70.0) H 04/11/19 04:16 Band Neutrophils % 1.0 % 04/11/19 04:16 Lymphocytes % (Manual) 17.0 % (13.4-35.0) 04/11/19 04:16 Reactive Lymphs % (Man) 0 % 04/11/19 04:16 Monocytes % (Manual) 8.0 % (0.0-7.3) H 04/11/19 04:16 Eosinophils % (Manual) 2.0 % (0.0-4.3) 04/11/19 04:16 Basophils % (Manual) 1.0 % (0.0-1.8) 04/11/19 04:16 Metamyelocytes % 0 % 04/11/19 04:16 Myelocytes % 0 % 04/11/19 04:16 Promyelocytes % 0 % 04/11/19 04:16 Blast Cells % 0 % 04/11/19 04:16 Nucleated RBC % Not Reportable 04/11/19 04:16 Seg Neutrophils # 11.8 K/mm3 (1.8-7.7) H 04/17/19 04:15 Seg Neutrophils # Man 8.2 K/mm3 (1.8-7.7) H 04/11/19 04:16 Band Neutrophils # 0.1 K/mm3 04/11/19 04:16 Lymphocytes # (Manual) 2.0 K/mm3 (1.2-5.4) 04/11/19 04:16 Abs React Lymphs (Man) 0.0 K/mm3 04/11/19 04:16 Monocytes # (Manual) 0.9 K/mm3 (0.0-0.8) H 04/11/19 04:16 Eosinophils # (Manual) 0.2 K/mm3 (0.0-0.4) 04/11/19 04:16 Basophils # (Manual) 0.1 K/mm3 (0.0-0.1) 04/11/19 04:16 Metamyelocytes # 0.0 K/mm3 04/11/19 04:16 Myelocytes # 0.0 K/mm3 04/11/19 04:16 Promyelocytes # 0.0 K/mm3 04/11/19 04:16 Blast Cells # 0.0 K/mm3 04/11/19 04:16 WBC Morphology Not Reportable 04/11/19 04:16 Hypersegmented Neuts Not Reportable 04/11/19 04:16 Hyposegmented Neuts Not Reportable 04/11/19 04:16 Hypogranular Neuts Not Reportable 04/11/19 04:16 Smudge Cells Not Reportable 04/11/19 04:16 Toxic Granulation Not Reportable 04/11/19 04:16 Toxic Vacuolation Not Reportable 04/11/19 04:16 Dohle Bodies Not Reportable 04/11/19 04:16 Pelger-Huet Anomaly Not Reportable 04/11/19 04:16 Joyce Rods Not Reportable 04/11/19 04:16 Platelet Estimate Consistent w auto 04/11/19 04:16 Clumped Platelets Not Reportable 04/11/19 04:16 Plt Clumps, EDTA Not Reportable 04/11/19 04:16 Large Platelets Not Reportable 04/11/19 04:16 Giant Platelets Not Reportable 04/11/19 04:16 Platelet Satelliting Not Reportable 04/11/19 04:16 Plt Morphology Comment Not Reportable 04/11/19 04:16 RBC Morphology Not Reportable 04/11/19 04:16 Dimorphic RBCs Not Reportable 04/11/19 04:16 Polychromasia Not Reportable 04/11/19 04:16 Hypochromasia Not Reportable 04/11/19 04:16 Poikilocytosis Not Reportable 04/11/19 04:16 Anisocytosis Rare 04/11/19 04:16 Microcytosis Rare 04/11/19 04:16 Macrocytosis Not Reportable 04/11/19 04:16 Spherocytes Not Reportable 04/11/19 04:16 Pappenheimer Bodies Not Reportable 04/11/19 04:16 Sickle Cells Not Reportable 04/11/19 04:16 Target Cells Not Reportable 04/11/19 04:16 Tear Drop Cells Not Reportable 04/11/19 04:16 Ovalocytes Not Reportable 04/11/19 04:16 Stomatocytes Few 03/26/19 Unknown Helmet Cells Not Reportable 04/11/19 04:16 [place] Bodies Not Reportable 04/11/19 04:16 [place] Rings Not Reportable 04/11/19 04:16 Samantha Cells Not Reportable 04/11/19 04:16 Bite Cells Not Reportable 04/11/19 04:16 Crenated Cell Not Reportable 04/11/19 04:16 Elliptocytes Not Reportable 04/11/19 04:16 Acanthocytes (Spur) Not Reportable 04/11/19 04:16 Rouleaux Not Reportable 04/11/19 04:16 Hemoglobin C Crystals Not Reportable 04/11/19 04:16 Schistocytes Not Reportable 04/11/19 04:16 Malaria parasites Not Reportable 04/11/19 04:16 Phil Bodies Not Reportable 04/11/19 04:16 Hem Pathologist Commnt No 04/11/19 04:16 PT 15.3 Sec. (12.2-14.9) H 03/29/19 11:48 INR 1.24 (0.87-1.13) H 03/29/19 11:48 APTT 26.6 Sec. (24.2-36.6) 03/28/19 12:00 Fibrinogen 226 mg/dl (211-480) 03/28/19 12:00 D-Dimer 4845.98 ng/mlDDU (0-234) H 03/28/19 12:00 Heparin Anti-Xa Level 0.23 U.I./ml (0.3-0.7) L 03/28/19 05:13 POC ABG pH 7.401 (7.35-7.45) 04/07/19 12:57 ABG pH 7.388 pH Units (7.350-7.450) 04/06/19 05:20 POC ABG pCO2 41.5 (35-45) 04/07/19 12:57 ABG pCO2 38.5 mm Hg 04/06/19 05:20 POC ABG pO2 107 (80-105) H 04/07/19 12:57 ABG pO2 104.0 mm Hg (80.0-90.0) H 04/06/19 05:20 POC ABG HCO3 25.7 (22-26 mml/L) 04/07/19 12:57 ABG HCO3 22.6 mmol/L (20.0-26.0) 04/06/19 05:20 POC ABG Total CO2 27 (23-27mmol/L) 04/07/19 12:57 POC ABG O2 Sat 98 04/07/19 12:57 ABG O2 Saturation 97.8 % (95.0-99.0) 04/06/19 05:20 ABG O2 Content 10.0 (0.0-44) 04/06/19 05:20 POC ABG Base Excess 1 ((-2) - (+3)mmol/L) 04/07/19 12:57 ABG Base Excess -2.1 mmol/L (-2.0-3.0) L 04/06/19 05:20 ABG Hemoglobin 7.3 gm/dl (14.0-18.0) L 04/06/19 05:20 ABG Carboxyhemoglobin 1.7 % (0.0-5.0) 04/06/19 05:20 ABG Methemoglobin 0.6 % (0.0-1.5) 04/06/19 05:20 Oxyhemoglobin 95.5 % (95.0-99.0) 04/06/19 05:20 FiO2 30 % 04/07/19 12:57 Sodium 150 mmol/L (137-145) H 04/20/19 09:09 Potassium 3.9 mmol/L (3.6-5.0) 04/20/19 09:09 Chloride 108.9 mmol/L (98-107) H 04/20/19 09:09 Carbon Dioxide 24 mmol/L (22-30) 04/20/19 09:09 Anion Gap 21 mmol/L 04/20/19 09:09 BUN 70 mg/dL (9-20) H 04/20/19 09:09 Creatinine 4.1 mg/dL (0.8-1.5) H 04/20/19 09:09 Estimated GFR 16 ml/min 04/20/19 09:09 BUN/Creatinine Ratio 17 % 04/20/19 09:09 Glucose 105 mg/dL (75-100) H 04/20/19 09:09 POC Glucose 131 (70-105) H 04/20/19 12:29 Lactic Acid 1.90 mmol/L (0.7-2.0) 03/21/19 21:31 Calcium 11.6 mg/dL (8.4-10.2) H 04/20/19 09:09 Ionized Calcium 3.7 mg/dL (4.8-5.6) L 03/30/19 12:09 Phosphorus 5.40 mg/dL (2.5-4.5) H 04/17/19 04:15 Magnesium 1.90 mg/dL (1.7-2.3) 03/31/19 15:07 Iron 26 ug/dL (49-181) L 04/02/19 05:03 TIBC 138 mcg/dL (250-450) L 04/02/19 05:03 Ferritin 607.0 ng/mL (13.0-400.0) H 04/02/19 05:03 Total Bilirubin 0.50 mg/dL (0.1-1.2) 04/13/19 05:00 Direct Bilirubin 0.4 mg/dL (0-0.2) H 03/31/19 08:20 Indirect Bilirubin 0.1 mg/dL 03/31/19 08:20 AST 21 units/L (5-40) 04/13/19 05:00 ALT 13 units/L (7-56) 04/13/19 05:00 Alkaline Phosphatase 52 units/L (35-129) 04/13/19 05:00 Total Creatine Kinase 62 units/L (55-170) 04/07/19 05:40 CK-MB (CK-2) 54.3 ng/mL (0.0-4.0) H 03/17/19 07:16 CK-MB (CK-2) Rel Index 0.0 (0-4) 03/17/19 07:16 Troponin T 0.058 ng/mL (0.00-0.029) H 03/17/19 07:16 C-Reactive Protein 7.10 mg/dL (0.00-1.30) H 04/17/19 04:15 Total Protein 5.8 g/dL (6.3-8.2) L 04/13/19 05:00 Albumin 2.5 g/dL (3.9-5) L 04/13/19 05:00 Albumin/Globulin Ratio 0.8 % 04/13/19 05:00 Triglycerides 309 mg/dL (2-149) H 03/29/19 06:22 Cholesterol 88 mg/dL (50-199) 03/16/19 22:32 LDL Cholesterol Direct 10 mg/dL (50-130) L 03/16/19 22:32 HDL Cholesterol 7 mg/dL (40-59) L 03/16/19 22:32 Cholesterol/HDL Ratio 12.57 % 03/16/19 22:32 Vitamin B12 903.0 pg/mL (211-911) 04/02/19 05:03 Folate 8.05 ng/mL (7.3-26.0) 04/02/19 05:03 Procalcitonin 25.42 ng/mL (<0.15) 03/27/19 19:21 TSH 2.200 mlU/mL (0.270-4.200) 03/16/19 17:05 Free T4 0.72 ng/dL (0.76-1.46) L 03/16/19 17:05 PTH Intact 329.9 pg/mL (15-65) H 03/25/19 05:00 Urine Color Yellow (Yellow) 04/15/19 22:11 Urine Turbidity Clear (Clear) 04/15/19 22:11 Urine pH 6.0 (5.0-7.0) 04/15/19 22:11 Ur Specific [place] 1.010 (1.003-1.030) 04/15/19 22:11 Urine Protein 30 mg/dl mg/dL (Negative) 04/15/19 22:11 Urine Glucose (UA) Neg mg/dL (Negative) 04/15/19 22:11 Urine Ketones Neg mg/dL (Negative) 04/15/19 22:11 Urine Blood Mod (Negative) 04/15/19 22:11 Urine Nitrite Neg (Negative) 04/15/19 22:11 Urine Bilirubin Neg (Negative) 04/15/19 22:11 Urine Urobilinogen < 2.0 mg/dL (<2.0) 04/15/19 22:11 Ur Leukocyte Esterase Neg (Negative) 04/15/19 22:11 Urine WBC (Auto) 4.0 /HPF (0.0-6.0) 04/15/19 22:11 Urine RBC (Auto) 2.0 /HPF (0.0-6.0) 04/15/19 22:11 U Epithel Cells (Auto) < 1.0 /HPF (0-13.0) 04/15/19 22:11 Amorphous Crystals 1+ 04/05/19 16:50 Urine Mucus Few /HPF 03/17/19 16:05 Urine Sperm 2+ /HPF (TAG MARKER) 03/17/19 16:05 Urine Eosinophils None seen (None Seen) 03/17/19 16:05 Urine Creatinine 106.6 mg/dL (0.1-20.0) H 03/17/19 16:05 Urine Sodium 95 mmol/L 03/17/19 16:05 Vancomycin Trough 11.5 ug/mL (5.0-20.0) 03/18/19 13:19 Random Vancomycin 10.8 ug/mL (0-40.0) 04/14/19 03:55 Salicylates < 0.3 mg/dL (2.8-20.0) L 03/16/19 17:05 Urine Opiates Screen Presumptive negative 03/17/19 16:05 Urine Methadone Screen Presumptive negative 03/17/19 16:05 Acetaminophen < 5.0 ug/mL (10.0-30.0) L 03/16/19 17:05 Ur Barbiturates Screen Presumptive negative 03/17/19 16:05 Ur Phencyclidine Scrn Presumptive negative 03/17/19 16:05 Ur Amphetamines Screen Presumptive negative 03/17/19 16:05 U Benzodiazepines Scrn Presumptive positive 03/17/19 16:05 Urine Cocaine Screen Presumptive negative 03/17/19 16:05 U Marijuana (THC) Screen Presumptive negative 03/17/19 16:05 Drugs of Abuse Note Disclamer 03/17/19 16:05 Plasma/Serum Alcohol < 0.01 % (0-0.07) 03/16/19 17:05 Hepatitis A IgM Ab Non-reactive (NonReactive) 04/18/19 10:02 Hep Bs Antigen Non-reactive (Negative) 04/18/19 10:02 Hep B Core IgM Ab Non-reactive (NonReactive) 04/18/19 10:02 Hepatitis C Antibody Non-reactive (NonReactive) 04/18/19 10:02 HIV 1&2 Antibody Rapid Non react (Non React) 03/17/19 11:52 HIV P24 Antigen Non react (Non React) 03/17/19 11:52 Influenza A (Rapid) Negative (Negative) 03/17/19 17:00 Influenza B (Rapid) Negative (Negative) 03/17/19 17:00 Group A Strep Rapid Negative (Negative) 03/17/19 17:00 Miscellaneous Test Flexitest 1 03/21/19 12:00 Blood Type A POSITIVE 04/02/19 16:34 Antibody Screen Negative 04/02/19 16:34 Crossmatch See Detail 04/02/19 16:34 Active Medications - Current Medications Current Medications: Generic Name Dose Route Start Last Admin Trade Name Freq PRN Reason Stop Dose Admin Acetaminophen 650 mg 04/02/19 23:26 04/20/19 06:41 Tylenol PO 650 mg Q4H PRN Administration Pain, Mild (1-3),temp>100.5 Albuterol 2.5 mg 03/29/19 13:08 Proventil IH Q4HRT PRN Shortness Of Breath Amiodarone HCl 200 mg 04/15/19 22:00 04/20/19 10:51 Cordarone PO 200 mg BID PAOLO Administration Lipase/Protease/Amylase 1 each 04/20/19 13:17 Pancreazapril [place] 10,500 Unit FEEDTUBE PRN PRN For Clogged Feeding Tube Bacitracin 1 applic 04/17/19 08:00 Antibiotic Oint TP Q4H PRN upper lip sore/open Dextrose 50 gm 04/17/19 08:00 D50w (25gm) Vial IV Q1H PRN Hypoglycemia Epoetin Jet 20,000 unit 03/31/19 10:15 04/20/19 12:47 Procrit SUB-Q 20,000 unit NEYMAR PRN Administration hemodialysis Hydralazine HCl 20 mg 04/14/19 03:00 04/14/19 03:11 Apresoline IV 20 mg Q4H PRN Administration hypertemsion Hydrophilic Ointment 1 applic 03/16/19 15:50 04/19/19 18:24 Vaseline Lip Therapy TP 1 applic Q2HR PRN Administration Dry Lips Aztreonam 2 gm in 100 mls @ 100 mls/hr 04/17/19 18:00 04/20/19 10:51 Azactam/Ns 2 Gm/100 Ml IV 100 mls/hr Q24HR PAOLO Administration Protocol Linezolid 600 mg in 300 mls @ 300 mls/hr 04/17/19 17:00 04/20/19 04:59 Zyvox 600mg/300ml IV 300 mls/hr Q12H PAOLO Administration Protocol Sodium Chloride 100 mls @ 999 mls/hr 04/20/19 08:41 Nacl 0.9% IV NEYMAR PRN Hypotension Lansoprazole 30 mg 04/11/19 10:00 04/20/19 10:51 Prevacid Solutab FEEDTUBE 30 mg BID PAOLO Administration Metoprolol Tartrate 5 mg 04/16/19 22:24 04/20/19 13:58 Lopressor IV 5 mg Q6H PRN Administration For HR >120 Metoprolol Tartrate 25 mg 04/17/19 20:00 04/20/19 14:21 Lopressor PO 25 mg TID PAOLO Administration Multi-Ingred Cream/Lotion/Oil/Oint 1 applic 03/16/19 15:50 03/19/19 20:10 Artificial Tears Ophth Oint OU 1 applic Q4HR PRN Administration Dry Eye(s) Simple Syrup 15 ml 04/20/19 13:17 Simple Syrup FEEDTUBE PRN PRN Hypoglycemia Simple Syrup 30 ml 04/20/19 13:29 Simple Syrup FEEDTUBE PRN PRN Hypoglycemia Sodium Bicarbonate 325 mg 04/20/19 13:17 Sodium Bicarbonate FEEDTUBE PRN PRN For Clogged Feeding Tube Sodium Hypochlorite 1 applic 04/18/19 11:00 04/20/19 10:52 Dakin's Half Strength TP 1 applicatio BID PAOLO Administration Nutrition/Malnutrition Assess - Dietary Evaluation Nutrition/Malnutrition Findings: Nutrition Notes Start: 03/17/19 14:22 Freq: Status: Active Protocol: Document 04/20/19 12:15 RS (Rec: 04/20/19 13:13 RS [id number]) Co-Sign 04/20/19 12:15 LM Nutrition Notes Initial or Follow up Reassessment Current Diagnosis Acute Kidney Injury,Heart Failure Other Pertinent Diagnosis on HD, Septic shock,Multiple organ failure, encephalopathy, Aspiration pneu Current Diet Nepro at 50 ml/hr Labs/Tests Na: 147 K: 3.3 BUN: 45 Cr: 2.9 Pertinent Medications Reviewed Height 6 ft Weight 147 kg [place] Body Weight (kg) 80.90 BMI 43.9 Subjective/Other Information Observed Nepro infusing at goal rate of 50mL/hr. Pt tolerating TF well. Percent of energy/protein needs met: 100%/100% Burn Absent Trauma Absent Minimum of two criteria No #1 Nutrition Diagnosis Inadequate oral intake Diagnosis Progress(for reassessment Continues documentation) Is patient on ventilator? No Is Patient Ambulatory and/or Out of Bed No REE-([place]-St. Jeor-confined to bed) 2874.156 Kcal/Kg value to use for calculation 14 Approximate Energy Requirements Using 2057 kcal/Kg Calculation Used for Recommendations Kcal/kg Additional Notes Protein: 97-121g (1.2-1.5g/kg, IBW) Fluids:1 ml/kcal or per MD Nutrition Intervention Nutrition Support: Nepro 1.8 at 50 ml/hr Water flush 300 ml q4hr until hypernatremia resolves, or per MD Water flush 150 ml q4hr once hypernatremia resolves, or per MD Kcal 2,160 Protein (gm) 97 Fluid (mL) 872 Goal #1 TF tolerance Goal #2 Continue to meet at least 75% of calorie and protein needs via TF Anticipated Discharge Needs: Unable to determine at this time Follow-Up By: 04/27/19 Additional Comments Follow for TF tolerance
--- NOTE | 2019-04-20 15:27 | Progress Note ---
Assessment and Plan Cont present cardiac management. Consider PEG placement per primary team. No systemic AC regarding AFib in setting of anemia, thrombocytopenia, GI bleed. Can consider ischemic evaluation (stress test) once medically stabilized. Will follow peripherally over the weekend. The patient has been seen in conjunction with Dr. Millie Nunez who agrees with the assessment and plan of care. - Patient Problems (1) Cardiopulmonary arrest Current Visit: Yes Status: Acute (2) Acute respiratory failure Current Visit: Yes Status: Acute Qualifiers: Respiratory failure complication: hypoxia Qualified Code(s): J96.01 - Acute respiratory failure with hypoxia (3) Paroxysmal atrial fibrillation with RVR Current Visit: Yes Status: Acute (4) SVT (supraventricular tachycardia) Current Visit: Yes Status: Acute (5) Torsades de pointes Current Visit: Yes Status: Acute (6) Ventricular tachycardia Current Visit: Yes Status: Acute (7) Encephalopathy Current Visit: Yes Status: Acute (8) Septic shock Current Visit: Yes Status: Acute (9) Aspiration pneumonia Current Visit: Yes Status: Acute Qualifiers: Aspiration pneumonia type: unspecified (10) Meningitis Current Visit: Yes Status: Suspected (11) Cellulitis Current Visit: Yes Status: Acute (12) Acute renal failure Current Visit: Yes Status: Acute Qualifiers: Acute renal failure type: with acute tubular necrosis Qualified Code(s): N17.0 - Acute kidney failure with tubular necrosis (13) GI bleed Current Visit: Yes Status: Acute (14) Anemia Current Visit: Yes Status: Acute (15) Thrombocytopenia Current Visit: Yes Status: Resolved (16) DVT (deep venous thrombosis) Current Visit: Yes Status: Acute Subjective Date of service: 04/20/19 Principal diagnosis: anemia - DVT IJ Interval history: pt resting in bed, awake and alert, in SR. Objective Last Vital Signs Temp 99.7 F H 04/20/19 12:00 Pulse 81 04/20/19 14:21 Resp 25 H 04/20/19 13:00 BP 109/65 04/20/19 14:21 Pulse Ox 98 04/20/19 13:00 - Physical Examination General: No Apparent Distress HEENT: Positive: EOMI, Normocephaly, Mucus Membranes Moist Neck: Positive: neck supple, trachea midline Cardiac: Positive: Reg Rate and Rhythm, S1/S2 Lungs: Positive: Decreased Breath Sounds Neuro: Positive: Grossly Intact, Other (awake, alert and oriented) Abdomen: Positive: Soft, Active Bowel Sounds. Negative: Tender /Rectal: Other (deferred) Skin: Positive: Clear. Negative: Rash Musculoskeletal: Normal Range of Motion Extremities: Present: normal. Absent: edema - Labs and Meds Comprehensive Metabolic Panel 04/20/19 Range/Units 09:09 Sodium 150 H (137-145) mmol/L Potassium 3.9 (3.6-5.0) mmol/L Chloride 108.9 H (98-107) mmol/L Carbon Dioxide 24 (22-30) mmol/L BUN 70 H (9-20) mg/dL Creatinine 4.1 H (0.8-1.5) mg/dL Glucose 105 H (75-100) mg/dL Calcium 11.6 H (8.4-10.2) mg/dL - Imaging and Cardiology Echo: report reviewed ( EF 40-45%, impaired relaxation. ) - EKG Sinus rhythms and dysrhythmias: sinus rhythm - Allied health notes Allied health notes reviewed: nursing
[2019-04-20 21:38] LABS: ANA Screen, IFA Negative (Negative)
[2019-04-21 05:41] LABS: Hematocrit 27.2 % (35.5-45.6); Hemoglobin 8.7 gm/dl (11.8-15.2); Mean Corpuscular HGB Conc 32 % (32-34); Mean Corpuscular Volume 90 fl (84-94); Platelet Count 218 K/mm3 (140-440); Red Blood Count 3.02 M/mm3 (3.65-5.03); Red Cell Distribution Width 16.7 % (13.2-15.2)
[2019-04-21] MEDS: LINEZOLID 600 MG/300 ML BAG IV SCH ×2 (05:57→16:36)
--- NOTE | 2019-04-21 08:54 | Progress Note ---
Assessment and Plan Assessment and plan: Patient is a 43-year-old man with history of GERD, obesity and mental illness, who presented to [facility] ED on 03/16/2019 with altered mental status. He is visiting from [place] and was brought in by his friend. As per records per family he has been homeless [address] [place]. When he came to the ER, he was unable to speak or follow commands, in the ER he was found to have SVT with heart rate in the 250s. The patient was shocked and medicated. Also was confused, and had trouble protecting his airway; therefore, he was then intubated. He has had a prolonged hospital course. During this hospital course, he was found to have sepsis with septic shock, acute resp failure, rhabdomyolysis, RUBEN, and multisystem organ failure, toxic metabolic encephalopathy. He was started on hemodialysis-still getting dialysis. patient is much improved. Still has recurrent fever, followed by ID Physician. Patient now on Azactam, Zyvox. He passed his swallow test started on mechanical soft diet today 04/21/19. Acute hypoxic respiratory failure. Was intubated, now extubated. Now on Room air. Continue BiPAP as clinically indicated. Atrial fibrillation. Continue Metoprolol. Cardiology following. No systemic AC regarding AFib in setting of anemia, thrombocytopenia, GI bleed. Acute blood loss anemia. Patient with GI bleed secondary to peptic ulcer disease. EGD completed per GI. Continue PRBCs as needed. GI bleed/peptic ulcer disease. Continue PPI. Transfuse PRBCs as needed. Sepsis/septic shock. Continue antibiotics per ID. Now on Zyvox and Azactam Fever, recurrent ID following Ischemic hepatitis/shock liver. Elevated LFTs improved. Viral hepatitis panel negative. Acute kidney injury. Patient still on hemodialysis. Patient was started on hemodialysis on 03/18/19 due to worsening metabolic acidosis and hyperkalemia. Baseline renal function is unknown. CT abdomen was negative for obstructive nephropathy. Avoid nephrotoxic agents. Continue hemodialysis per nephrology. Toxic metabolic encephalopathy. Brain MRI showed no acute intracranial abnormality, mild nonspecific chronic white matter changes, fluid throughout the sinuses and mastoid air cells. Swelling both upper ext L>R Doppler US : no DVT LUE Hypokalemia. Replete potassium as needed. Hypernatremia. Bumex was stopped. Follow-up BMP Nephrology following Now resolved Na 141 today Thrombocytopenia. Etiology likely secondary to sepsis. Resolved. Rhabdomyolysis. CK normalized. Full code status I called and his brother in [place] to give update on his condition. All his questions answered. Brother says he is .visiting Tue or Tue. 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 I History Interval history: Feels better Still having fever gen weakness Just started on diet by mouth today Hospitalist Physical - Physical exam Narrative exam: Gen: Not in acute distress, lying in bed, morbidly obese HEENT: Normocephalic, atraumatic, NG tube Neck: supple, no JVD Heart: S1 and S2 irreg, tachy, no murmurs, rubs or gallop Lungs: Clear to auscultation, no rhonchi, no wheeze Abd: soft, non tender, non distended, normal BS, Ext: bilateral upper ext edema, L>R, no clubbing, no cyanosis, dressing over left elbow,eschar anterior left elbow Neuro: Awake, alert,oriented, moves all ext - Constitutional Vitals: Temp Pulse Resp BP Pulse Ox 100.1 F H 148 H 29 H 110/66 97 04/21/19 04:00 04/21/19 06:52 04/21/19 06:01 04/21/19 06:01 04/21/19 06:01 General appearance: Present: obese Results - Labs CBC & Chem 7: 04/21/19 04:22 04/21/19 01:34 Labs: Laboratory Last Values WBC 14.2 K/mm3 (4.5-11.0) H 04/21/19 04:22 RBC 3.02 M/mm3 (3.65-5.03) L 04/21/19 04:22 Hgb 8.7 gm/dl (11.8-15.2) L 04/21/19 04:22 Hct 27.2 % (35.5-45.6) L 04/21/19 04:22 MCV 90 fl (84-94) 04/21/19 04:22 MCH 29 pg (28-32) 04/21/19 04:22 MCHC 32 % (32-34) 04/21/19 04:22 RDW 16.7 % (13.2-15.2) H 04/21/19 04:22 Plt Count 218 K/mm3 (140-440) 04/21/19 04:22 Lymph % (Auto) 12.6 % (13.4-35.0) L 04/17/19 04:15 [place] % (Auto) 11.1 % (0.0-7.3) H 04/17/19 04:15 Eos % (Auto) 0.8 % (0.0-4.3) 04/17/19 04:15 Baso % (Auto) 0.8 % (0.0-1.8) 04/17/19 04:15 Lymph # 2.0 K/mm3 (1.2-5.4) 04/17/19 04:15 [place] # 1.7 K/mm3 (0.0-0.8) H 04/17/19 04:15 Eos # 0.1 K/mm3 (0.0-0.4) 04/17/19 04:15 Baso # 0.1 K/mm3 (0.0-0.1) 04/17/19 04:15 Add Manual Diff Complete 04/11/19 04:16 Total Counted 100 04/11/19 04:16 Seg Neutrophils % 74.7 % (40.0-70.0) H 04/17/19 04:15 Seg Neuts % (Manual) 71.0 % (40.0-70.0) H 04/11/19 04:16 Band Neutrophils % 1.0 % 04/11/19 04:16 Lymphocytes % (Manual) 17.0 % (13.4-35.0) 04/11/19 04:16 Reactive Lymphs % (Man) 0 % 04/11/19 04:16 Monocytes % (Manual) 8.0 % (0.0-7.3) H 04/11/19 04:16 Eosinophils % (Manual) 2.0 % (0.0-4.3) 04/11/19 04:16 Basophils % (Manual) 1.0 % (0.0-1.8) 04/11/19 04:16 Metamyelocytes % 0 % 04/11/19 04:16 Myelocytes % 0 % 04/11/19 04:16 Promyelocytes % 0 % 04/11/19 04:16 Blast Cells % 0 % 04/11/19 04:16 Nucleated RBC % Not Reportable 04/11/19 04:16 Seg Neutrophils # 11.8 K/mm3 (1.8-7.7) H 04/17/19 04:15 Seg Neutrophils # Man 8.2 K/mm3 (1.8-7.7) H 04/11/19 04:16 Band Neutrophils # 0.1 K/mm3 04/11/19 04:16 Lymphocytes # (Manual) 2.0 K/mm3 (1.2-5.4) 04/11/19 04:16 Abs React Lymphs (Man) 0.0 K/mm3 04/11/19 04:16 Monocytes # (Manual) 0.9 K/mm3 (0.0-0.8) H 04/11/19 04:16 Eosinophils # (Manual) 0.2 K/mm3 (0.0-0.4) 04/11/19 04:16 Basophils # (Manual) 0.1 K/mm3 (0.0-0.1) 04/11/19 04:16 Metamyelocytes # 0.0 K/mm3 04/11/19 04:16 Myelocytes # 0.0 K/mm3 04/11/19 04:16 Promyelocytes # 0.0 K/mm3 04/11/19 04:16 Blast Cells # 0.0 K/mm3 04/11/19 04:16 WBC Morphology Not Reportable 04/11/19 04:16 Hypersegmented Neuts Not Reportable 04/11/19 04:16 Hyposegmented Neuts Not Reportable 04/11/19 04:16 Hypogranular Neuts Not Reportable 04/11/19 04:16 Smudge Cells Not Reportable 04/11/19 04:16 Toxic Granulation Not Reportable 04/11/19 04:16 Toxic Vacuolation Not Reportable 04/11/19 04:16 Dohle Bodies Not Reportable 04/11/19 04:16 Pelger-Huet Anomaly Not Reportable 04/11/19 04:16 Joyce Rods Not Reportable 04/11/19 04:16 Platelet Estimate Consistent w auto 04/11/19 04:16 Clumped Platelets Not Reportable 04/11/19 04:16 Plt Clumps, EDTA Not Reportable 04/11/19 04:16 Large Platelets Not Reportable 04/11/19 04:16 Giant Platelets Not Reportable 04/11/19 04:16 Platelet Satelliting Not Reportable 04/11/19 04:16 Plt Morphology Comment Not Reportable 04/11/19 04:16 RBC Morphology Not Reportable 04/11/19 04:16 Dimorphic RBCs Not Reportable 04/11/19 04:16 Polychromasia Not Reportable 04/11/19 04:16 Hypochromasia Not Reportable 04/11/19 04:16 Poikilocytosis Not Reportable 04/11/19 04:16 Anisocytosis Rare 04/11/19 04:16 Microcytosis Rare 04/11/19 04:16 Macrocytosis Not Reportable 04/11/19 04:16 Spherocytes Not Reportable 04/11/19 04:16 Pappenheimer Bodies Not Reportable 04/11/19 04:16 Sickle Cells Not Reportable 04/11/19 04:16 Target Cells Not Reportable 04/11/19 04:16 Tear Drop Cells Not Reportable 04/11/19 04:16 Ovalocytes Not Reportable 04/11/19 04:16 Stomatocytes Few 03/26/19 Unknown Helmet Cells Not Reportable 04/11/19 04:16 Shrestha-Percy Bodies Not Reportable 04/11/19 04:16 Browning Rings Not Reportable 04/11/19 04:16 [place] Cells Not Reportable 04/11/19 04:16 Bite Cells Not Reportable 04/11/19 04:16 Crenated Cell Not Reportable 04/11/19 04:16 Elliptocytes Not Reportable 04/11/19 04:16 Acanthocytes (Spur) Not Reportable 04/11/19 04:16 Rouleaux Not Reportable 04/11/19 04:16 Hemoglobin C Crystals Not Reportable 04/11/19 04:16 Schistocytes Not Reportable 04/11/19 04:16 Malaria parasites Not Reportable 04/11/19 04:16 Phil Bodies Not Reportable 04/11/19 04:16 Hem Pathologist Commnt No 04/11/19 04:16 PT 15.3 Sec. (12.2-14.9) H 03/29/19 11:48 INR 1.24 (0.87-1.13) H 03/29/19 11:48 APTT 26.6 Sec. (24.2-36.6) 03/28/19 12:00 Fibrinogen 226 mg/dl (211-480) 03/28/19 12:00 D-Dimer 4845.98 ng/mlDDU (0-234) H 03/28/19 12:00 Heparin Anti-Xa Level 0.23 U.I./ml (0.3-0.7) L 03/28/19 05:13 POC ABG pH 7.401 (7.35-7.45) 04/07/19 12:57 ABG pH 7.388 pH Units (7.350-7.450) 04/06/19 05:20 POC ABG pCO2 41.5 (35-45) 04/07/19 12:57 ABG pCO2 38.5 mm Hg 04/06/19 05:20 POC ABG pO2 107 (80-105) H 04/07/19 12:57 ABG pO2 104.0 mm Hg (80.0-90.0) H 04/06/19 05:20 POC ABG HCO3 25.7 (22-26 mml/L) 04/07/19 12:57 ABG HCO3 22.6 mmol/L (20.0-26.0) 04/06/19 05:20 POC ABG Total CO2 27 (23-27mmol/L) 04/07/19 12:57 POC ABG O2 Sat 98 04/07/19 12:57 ABG O2 Saturation 97.8 % (95.0-99.0) 04/06/19 05:20 ABG O2 Content 10.0 (0.0-44) 04/06/19 05:20 POC ABG Base Excess 1 ((-2) - (+3)mmol/L) 04/07/19 12:57 ABG Base Excess -2.1 mmol/L (-2.0-3.0) L 04/06/19 05:20 ABG Hemoglobin 7.3 gm/dl (14.0-18.0) L 04/06/19 05:20 ABG Carboxyhemoglobin 1.7 % (0.0-5.0) 04/06/19 05:20 ABG Methemoglobin 0.6 % (0.0-1.5) 04/06/19 05:20 Oxyhemoglobin 95.5 % (95.0-99.0) 04/06/19 05:20 FiO2 30 % 04/07/19 12:57 Sodium 141 mmol/L (137-145) D 04/21/19 01:34 Potassium 3.7 mmol/L (3.6-5.0) 04/21/19 01:34 Chloride 100.4 mmol/L (98-107) 04/21/19 01:34 Carbon Dioxide 29 mmol/L (22-30) 04/21/19 01:34 Anion Gap 15 mmol/L 04/21/19 01:34 BUN 40 mg/dL (9-20) H 04/21/19 01:34 Creatinine 2.6 mg/dL (0.8-1.5) H 04/21/19 01:34 Estimated GFR 27 ml/min 04/21/19 01:34 BUN/Creatinine Ratio 15 % 04/21/19 01:34 Glucose 104 mg/dL (75-100) H 04/21/19 01:34 POC Glucose 97 (70-105) 04/21/19 05:50 Lactic Acid 1.90 mmol/L (0.7-2.0) 03/21/19 21:31 Calcium 11.0 mg/dL (8.4-10.2) H 04/21/19 01:34 Ionized Calcium 3.7 mg/dL (4.8-5.6) L 03/30/19 12:09 Phosphorus 5.40 mg/dL (2.5-4.5) H 04/17/19 04:15 Magnesium 1.90 mg/dL (1.7-2.3) 03/31/19 15:07 Iron 26 ug/dL (49-181) L 04/02/19 05:03 TIBC 138 mcg/dL (250-450) L 04/02/19 05:03 Ferritin 607.0 ng/mL (13.0-400.0) H 04/02/19 05:03 Total Bilirubin 0.50 mg/dL (0.1-1.2) 04/13/19 05:00 Direct Bilirubin 0.4 mg/dL (0-0.2) H 03/31/19 08:20 Indirect Bilirubin 0.1 mg/dL 03/31/19 08:20 AST 21 units/L (5-40) 04/13/19 05:00 ALT 13 units/L (7-56) 04/13/19 05:00 Alkaline Phosphatase 52 units/L (35-129) 04/13/19 05:00 Total Creatine Kinase 62 units/L (55-170) 04/07/19 05:40 CK-MB (CK-2) 54.3 ng/mL (0.0-4.0) H 03/17/19 07:16 CK-MB (CK-2) Rel Index 0.0 (0-4) 03/17/19 07:16 Troponin T 0.058 ng/mL (0.00-0.029) H 03/17/19 07:16 C-Reactive Protein 7.10 mg/dL (0.00-1.30) H 04/17/19 04:15 Total Protein 5.8 g/dL (6.3-8.2) L 04/13/19 05:00 Albumin 2.5 g/dL (3.9-5) L 04/13/19 05:00 Albumin/Globulin Ratio 0.8 % 04/13/19 05:00 Triglycerides 309 mg/dL (2-149) H 03/29/19 06:22 Cholesterol 88 mg/dL (50-199) 03/16/19 22:32 LDL Cholesterol Direct 10 mg/dL (50-130) L 03/16/19 22:32 HDL Cholesterol 7 mg/dL (40-59) L 03/16/19 22:32 Cholesterol/HDL Ratio 12.57 % 03/16/19 22:32 Vitamin B12 903.0 pg/mL (211-911) 04/02/19 05:03 Folate 8.05 ng/mL (7.3-26.0) 04/02/19 05:03 Procalcitonin 25.42 ng/mL (<0.15) 03/27/19 19:21 TSH 2.200 mlU/mL (0.270-4.200) 03/16/19 17:05 Free T4 0.72 ng/dL (0.76-1.46) L 03/16/19 17:05 PTH Intact 329.9 pg/mL (15-65) H 03/25/19 05:00 Urine Color Yellow (Yellow) 04/15/19 22:11 Urine Turbidity Clear (Clear) 04/15/19 22:11 Urine pH 6.0 (5.0-7.0) 04/15/19 22:11 Ur Specific [place] 1.010 (1.003-1.030) 04/15/19 22:11 Urine Protein 30 mg/dl mg/dL (Negative) 04/15/19 22:11 Urine Glucose (UA) Neg mg/dL (Negative) 04/15/19 22:11 Urine Ketones Neg mg/dL (Negative) 04/15/19 22:11 Urine Blood Mod (Negative) 04/15/19 22:11 Urine Nitrite Neg (Negative) 04/15/19 22:11 Urine Bilirubin Neg (Negative) 04/15/19 22:11 Urine Urobilinogen < 2.0 mg/dL (<2.0) 04/15/19 22:11 Ur Leukocyte Esterase Neg (Negative) 04/15/19 22:11 Urine WBC (Auto) 4.0 /HPF (0.0-6.0) 04/15/19 22:11 Urine RBC (Auto) 2.0 /HPF (0.0-6.0) 04/15/19 22:11 U Epithel Cells (Auto) < 1.0 /HPF (0-13.0) 04/15/19 22:11 Amorphous Crystals 1+ 04/05/19 16:50 Urine Mucus Few /HPF 03/17/19 16:05 Urine Sperm 2+ /HPF (POWER TECHNICIAN) 03/17/19 16:05 Urine Eosinophils None seen (None Seen) 03/17/19 16:05 Urine Creatinine 106.6 mg/dL (0.1-20.0) H 03/17/19 16:05 Urine Sodium 95 mmol/L 03/17/19 16:05 Vancomycin Trough 11.5 ug/mL (5.0-20.0) 03/18/19 13:19 Random Vancomycin 10.8 ug/mL (0-40.0) 04/14/19 03:55 Salicylates < 0.3 mg/dL (2.8-20.0) L 03/16/19 17:05 Urine Opiates Screen Presumptive negative 03/17/19 16:05 Urine Methadone Screen Presumptive negative 03/17/19 16:05 Acetaminophen < 5.0 ug/mL (10.0-30.0) L 03/16/19 17:05 Ur Barbiturates Screen Presumptive negative 03/17/19 16:05 Ur Phencyclidine Scrn Presumptive negative 03/17/19 16:05 Ur Amphetamines Screen Presumptive negative 03/17/19 16:05 U Benzodiazepines Scrn Presumptive positive 03/17/19 16:05 Urine Cocaine Screen Presumptive negative 03/17/19 16:05 U Marijuana (THC) Screen Presumptive negative 03/17/19 16:05 Drugs of Abuse Note Disclamer 03/17/19 16:05 Plasma/Serum Alcohol < 0.01 % (0-0.07) 03/16/19 17:05 LANDY Screen Negative (Negative) 04/17/19 04:15 Hepatitis A IgM Ab Non-reactive (NonReactive) 04/18/19 10:02 Hep Bs Antigen Non-reactive (Negative) 04/18/19 10:02 Hep B Core IgM Ab Non-reactive (NonReactive) 04/18/19 10:02 Hepatitis C Antibody Non-reactive (NonReactive) 04/18/19 10:02 HIV 1&2 Antibody Rapid Non react (Non React) 03/17/19 11:52 HIV P24 Antigen Non react (Non React) 03/17/19 11:52 Influenza A (Rapid) Negative (Negative) 03/17/19 17:00 Influenza B (Rapid) Negative (Negative) 03/17/19 17:00 Group A Strep Rapid Negative (Negative) 03/17/19 17:00 Miscellaneous Test Flexitest 1 03/21/19 12:00 Blood Type A POSITIVE 04/02/19 16:34 Antibody Screen Negative 04/02/19 16:34 Crossmatch See Detail 04/02/19 16:34 Active Medications - Current Medications Current Medications: Generic Name Dose Route Start Last Admin Trade Name Freq PRN Reason Stop Dose Admin Acetaminophen 650 mg 04/02/19 23:26 04/20/19 06:41 Tylenol PO 650 mg Q4H PRN Administration Pain, Mild (1-3),temp>100.5 Albuterol 2.5 mg 03/29/19 13:08 Proventil IH Q4HRT PRN Shortness Of Breath Amiodarone HCl 200 mg 04/15/19 22:00 04/20/19 22:15 Cordarone PO 200 mg BID PAOLO Administration Lipase/Protease/Amylase 1 each 04/20/19 13:17 Pancreaze 10,500 Unit FEEDTUBE PRN PRN For Clogged Feeding Tube Bacitracin 1 applic 04/17/19 08:00 Antibiotic Oint TP Q4H PRN upper lip sore/open Dextrose 50 gm 04/17/19 08:00 D50w (25gm) Vial IV Q1H PRN Hypoglycemia Epoetin Jet 20,000 unit 03/31/19 10:15 04/20/19 12:47 Procrit SUB-Q 20,000 unit NEYMAR PRN Administration hemodialysis Hydralazine HCl 20 mg 04/14/19 03:00 04/14/19 03:11 Apresoline IV 20 mg Q4H PRN Administration hypertemsion Hydrophilic Ointment 1 applic 03/16/19 15:50 04/19/19 18:24 Vaseline Lip Therapy TP 1 applic Q2HR PRN Administration Dry Lips Aztreonam 2 gm in 100 mls @ 100 mls/hr 04/17/19 18:00 04/20/19 10:51 Azactam/Ns 2 Gm/100 Ml IV 100 mls/hr Q24HR PAOLO Administration Protocol Linezolid 600 mg in 300 mls @ 300 mls/hr 04/17/19 17:00 04/21/19 05:57 Zyvox 600mg/300ml IV 300 mls/hr Q12H PAOLO Administration Protocol Sodium Chloride 100 mls @ 999 mls/hr 04/20/19 08:41 Nacl 0.9% IV NEYMAR PRN Hypotension Lansoprazole 30 mg 04/11/19 10:00 04/20/19 22:15 Prevacid Solutab FEEDTUBE 30 mg BID PAOLO Administration Metoprolol Tartrate 5 mg 04/16/19 22:24 04/20/19 13:58 Lopressor IV 5 mg Q6H PRN Administration For HR >120 Metoprolol Tartrate 25 mg 04/17/19 20:00 04/20/19 22:35 Lopressor PO Not Given TID PAOLO Multi-Ingred Cream/Lotion/Oil/Oint 1 applic 03/16/19 15:50 03/19/19 20:10 Artificial Tears Ophth Oint OU 1 applic Q4HR PRN Administration Dry Eye(s) Simple Syrup 15 ml 04/20/19 13:17 Simple Syrup FEEDTUBE PRN PRN Hypoglycemia Simple Syrup 30 ml 04/20/19 13:29 Simple Syrup FEEDTUBE PRN PRN Hypoglycemia Sodium Bicarbonate 325 mg 04/20/19 13:17 Sodium Bicarbonate FEEDTUBE PRN PRN For Clogged Feeding Tube Sodium Hypochlorite 1 applic 04/18/19 11:00 04/20/19 22:16 Dakin's Half Strength TP 1 applicatio BID PAOLO Administration Nutrition/Malnutrition Assess - Dietary Evaluation Nutrition/Malnutrition Findings: Nutrition Notes Start: 03/17/19 14:22 Freq: Status: Active Protocol: Document 04/20/19 12:15 RS (Rec: 04/20/19 13:13 RS [id number]) Co-Sign 04/20/19 12:15 LM Nutrition Notes Initial or Follow up Reassessment Current Diagnosis Acute Kidney Injury,Heart Failure Other Pertinent Diagnosis on HD, Septic shock,Multiple organ failure, encephalopathy, Aspiration pneu Current Diet Nepro at 50 ml/hr Labs/Tests Na: 147 K: 3.3 BUN: 45 Cr: 2.9 Pertinent Medications Reviewed Height 6 ft Weight 147 kg [place] Body Weight (kg) 80.90 BMI 43.9 Subjective/Other Information Observed Nepro infusing at goal rate of 50mL/hr. Pt tolerating TF well. Percent of energy/protein needs met: 100%/100% Burn Absent Trauma Absent Minimum of two criteria No #1 Nutrition Diagnosis Inadequate oral intake Diagnosis Progress(for reassessment Continues documentation) Is patient on ventilator? No Is Patient Ambulatory and/or Out of Bed No REE-([facility]-confined to bed) 2874.156 Kcal/Kg value to use for calculation 14 Approximate Energy Requirements Using 2057 kcal/Kg Calculation Used for Recommendations Kcal/kg Additional Notes Protein: 97-121g (1.2-1.5g/kg, IBW) Fluids:1 ml/kcal or per MD Nutrition Intervention Nutrition Support: Nepro 1.8 at 50 ml/hr Water flush 300 ml q4hr until hypernatremia resolves, or per MD Water flush 150 ml q4hr once hypernatremia resolves, or per MD Kcal 2,160 Protein (gm) 97 Fluid (mL) 872 Goal #1 TF tolerance Goal #2 Continue to meet at least 75% of calorie and protein needs via TF Anticipated Discharge Needs: Unable to determine at this time Follow-Up By: 04/27/19 Additional Comments Follow for TF tolerance
[2019-04-21] MEDS: METOPROLOL TARTRATE 25 MG TAB PO SCH ×3 (09:05→20:28)
--- NOTE | 2019-04-21 09:36 | Progress Note ---
Assessment and Plan 1. Acute kidney injury: Vasomotor RUBEN in the setting of shock / volume depletion / Rhabdo. Baseline renal function is unknown. CT abdomen was negative for obstructive nephropathy. Patient was started on hemodialysis on 03/18/19 due to worsening metabolic acidosis and hyperkalemia. Monitor renal function. Renal prognosis is guarded. Avoid nephrotoxic agents. Meds dosage based on GFR. Hemodialysis: 03/18, 03/19, 03/20, 03/22, 03/23, 03/24, 03/26, 03/28, 03/29, 03/31, 04/02, 04/04, 04/06, 04/09, 04/11, 04/13, 04/18, 04/20. 2. FEN: Hypokalemia, replete K. Hypernatremia, monitor. Metabolic acidosis, improved. Volume overload, improving. Hypercalcemia, monitor. Low Ca bath. Monitor lytes. 3. Septic shock: Currently off pressors. Recurrent fever. Per ID recommendation the dialysis catheter was removed yesterday. 4. Rhabdomyolysis: Improved. 5. A.fib with RVR: On Amiodarone and Metoprolol. Followed by Cards. 6. Respiratory failure: Extubated. On BIPAP intermittently. 7. Severe anemia: S/p PRBC. On Epogen. 8. Elevated transaminases: Improved. 9. Encephalopathy. Examination: General appearance: well-developed, appears stated age, obese, NG tube noted HEENT: Atraumatic EYES: Pupils reacting to light Neck: supple Respiratory: CTAB, decreased breath sounds Cardiology: irrregular, S1S2 heard, no murmur Gastrointestinal: obese, BS heard, not tender Integumentary: no rash noted Neurologic: follows command, conversing, some confusion noted Ext: L UE edema is better Hemodialysis access: None Subjective Date of service: 04/21/19 Principal diagnosis: anemia - DVT IJ Interval history: Patient was seen and examined at the bedside. Objective - Vital Signs Vital signs: Vital Signs - 12hr 04/20/19 04/20/19 04/20/19 22:00 22:35 23:01 Temperature Pulse Rate 138 H 131 H 139 H Pulse Rate [ From Monitor] Respiratory 17 23 Rate Blood Pressure 99/59 91/51 105/64 O2 Sat by Pulse 98 97 Oximetry 04/21/19 04/21/19 04/21/19 00:00 00:01 01:01 Temperature 98.4 F Pulse Rate 148 H 142 H 150 H Pulse Rate [ 91 H From Monitor] Respiratory 20 38 H 21 Rate Blood Pressure 116/56 108/52 O2 Sat by Pulse 96 98 98 Oximetry 04/21/19 04/21/19 04/21/19 02:01 03:00 04:00 Temperature 100.1 F H Pulse Rate 94 H 142 H Pulse Rate [ 91 H From Monitor] Respiratory 30 H 36 H 18 Rate Blood Pressure 89/68 102/63 O2 Sat by Pulse 97 97 97 Oximetry 04/21/19 04/21/19 04/21/19 04:01 05:01 05:41 Temperature Pulse Rate 93 H 90 Pulse Rate [ From Monitor] Respiratory 30 H 33 H Rate Blood Pressure 110/71 114/66 O2 Sat by Pulse 95 96 96 Oximetry 04/21/19 04/21/19 04/21/19 06:01 06:52 09:32 Temperature Pulse Rate 91 H 148 H Pulse Rate [ From Monitor] Respiratory 29 H Rate Blood Pressure 110/66 O2 Sat by Pulse 97 96 Oximetry - Lab 04/21/19 04:22 04/21/19 01:34 Most recent lab results ABG pH 7.388 pH Units (7.350-7.450) 04/06/19 05:20 ABG pCO2 38.5 mm Hg 04/06/19 05:20 ABG pO2 104.0 mm Hg (80.0-90.0) H 04/06/19 05:20 ABG HCO3 22.6 mmol/L (20.0-26.0) 04/06/19 05:20 ABG O2 Saturation 97.8 % (95.0-99.0) 04/06/19 05:20 Calcium 11.0 mg/dL (8.4-10.2) H 04/21/19 01:34 Phosphorus 5.40 mg/dL (2.5-4.5) H 04/17/19 04:15 Magnesium 1.90 mg/dL (1.7-2.3) 03/31/19 15:07 Urine Creatinine 106.6 mg/dL (0.1-20.0) H 03/17/19 16:05 Urine Sodium 95 mmol/L 03/17/19 16:05 Medications & Allergies - Medications Allergies/Adverse Reactions: Allergies No Known Allergies Allergy (Unverified 03/16/19 17:17) Home Medications: Home Medications Medication Instructions Recorded Confirmed Last Taken Type Unobtainable 03/18/19 04/20/19 Unknown History Active Medications: Generic Name Dose Route Start Last Admin Trade Name Freq PRN Reason Stop Dose Admin Acetaminophen 650 mg 04/02/19 23:26 04/20/19 06:41 Tylenol PO 650 mg Q4H PRN Administration Pain, Mild (1-3),temp>100.5 Albuterol 2.5 mg 03/29/19 13:08 Proventil IH Q4HRT PRN Shortness Of Breath Amiodarone HCl 200 mg 04/15/19 22:00 04/20/19 22:15 Cordarone PO 200 mg BID PAOLO Administration Lipase/Protease/Amylase 1 each 04/20/19 13:17 Pancrekarly [place] 10,500 Unit FEEDTUBE PRN PRN For Clogged Feeding Tube Bacitracin 1 applic 04/17/19 08:00 Antibiotic Oint TP Q4H PRN upper lip sore/open Dextrose 50 gm 04/17/19 08:00 D50w (25gm) Vial IV Q1H PRN Hypoglycemia Epoetin Jet 20,000 unit 03/31/19 10:15 04/20/19 12:47 Procrit SUB-Q 20,000 unit NEYMAR PRN Administration hemodialysis Hydralazine HCl 20 mg 04/14/19 03:00 04/14/19 03:11 Apresoline IV 20 mg Q4H PRN Administration hypertemsion Hydrophilic Ointment 1 applic 03/16/19 15:50 04/19/19 18:24 Vaseline Lip Therapy TP 1 applic Q2HR PRN Administration Dry Lips Aztreonam 2 gm in 100 mls @ 100 mls/hr 04/17/19 18:00 04/20/19 10:51 Azactam/Ns 2 Gm/100 Ml IV 100 mls/hr Q24HR PAOLO Administration Protocol Linezolid 600 mg in 300 mls @ 300 mls/hr 04/17/19 17:00 04/21/19 05:57 Zyvox 600mg/300ml IV 300 mls/hr Q12H PAOLO Administration Protocol Sodium Chloride 100 mls @ 999 mls/hr 04/20/19 08:41 Nacl 0.9% IV NEYMAR PRN Hypotension Lansoprazole 30 mg 04/11/19 10:00 04/20/19 22:15 Prevacid Solutab FEEDTUBE 30 mg BID PAOLO Administration Metoprolol Tartrate 5 mg 04/16/19 22:24 04/20/19 13:58 Lopressor IV 5 mg Q6H PRN Administration For HR >120 Metoprolol Tartrate 25 mg 04/17/19 20:00 04/20/19 22:35 Lopressor PO Not Given TID PAOLO Multi-Ingred Cream/Lotion/Oil/Oint 1 applic 03/16/19 15:50 03/19/19 20:10 Artificial Tears Ophth Oint OU 1 applic Q4HR PRN Administration Dry Eye(s) Simple Syrup 15 ml 04/20/19 13:17 Simple Syrup FEEDTUBE PRN PRN Hypoglycemia Simple Syrup 30 ml 04/20/19 13:29 Simple Syrup FEEDTUBE PRN PRN Hypoglycemia Sodium Bicarbonate 325 mg 04/20/19 13:17 Sodium Bicarbonate FEEDTUBE PRN PRN For Clogged Feeding Tube Sodium Hypochlorite 1 applic 04/18/19 11:00 04/20/19 22:16 Dakin's Half Strength TP 1 applicatio BID PAOLO Administration
[2019-04-21] MEDS ORDERED: SODIUM CHLORIDE 0.9% 500 ML 500 ML IV ONE (09:44)
[2019-04-21] MEDS: AMIODARONE 200 MG TAB PO SCH ×2 (11:28→21:11)
[2019-04-21] MEDS: SODIUM HYPOCHLORITE, DAKIN'S 1/2 STRENGTH (0.25%) 473 ML TOPICAL SOLN TP SCH ×2 (11:28→21:11)
[2019-04-21] MEDS: LANSOPRAZOLE 30 MG SOLUTAB FEEDTUBE SCH ×2 (11:28→21:11)
[2019-04-21] MEDS: AZTREONAM/NS 2 GM/100 ML 2 GM/100 ML VIAL IV SCH (12:07)
--- NOTE | 2019-04-21 14:18 | Progress Note ---
Assessment and Plan Patient awake and more oriented. Patient Presently is on room air. O2 saturation is 97%. No acute respiratory distress. Patient afebrile and has mild leukocytosis. Patient is on zyvox and azactam. - Patient Problems (1) Acute respiratory failure Current Visit: Yes Status: Acute Qualifiers: Respiratory failure complication: hypoxia Qualified Code(s): J96.01 - Acute respiratory failure with hypoxia Plan to address problem: O2 2L as needed for shortness of breath or desaturation.. BiPAP standby in the room. Albuterol/atrovent aerosol treatments q 6 hours. Continue Prevacid. Recommend DVT prophylaxis. SCDs (2) Altered mental status Current Visit: Yes Status: Acute Qualifiers: Altered mental status type: unspecified Qualified Code(s): R41.82 - Altered mental status, unspecified Plan to address problem: Management as per primary care and neurology. (3) Atrial fibrillation with RVR Current Visit: Yes Status: Acute Plan to address problem: Management as per cardiology. (4) Cardiopulmonary arrest Current Visit: Yes Status: Acute Plan to address problem: Patient resucitated. Presently resting on room air. (5) Acute renal failure Current Visit: Yes Status: Acute Qualifiers: Acute renal failure type: with acute tubular necrosis Qualified Code(s): N17.0 - Acute kidney failure with tubular necrosis Plan to address problem: Management as per nephrology. (6) Aspiration pneumonia Current Visit: Yes Status: Acute Qualifiers: Aspiration pneumonia type: unspecified Plan to address problem: Patient is on Azactam and zyvox. (7) GI bleed Current Visit: Yes Status: Acute Plan to address problem: Management as per gastroenterology. Subjective Date of service: 04/21/19 Principal diagnosis: anemia - DVT IJ Interval history: Patient awake and more oriented. Patient Presently is on room air. O2 saturation is 97%. No acute respiratory distress. Patient afebrile and has mild leukocytosis. Patient is on zyvox and azactam. Objective Vital Signs - 12hr 04/21/19 04/21/19 04/21/19 03:00 04:00 04:01 Temperature 100.1 F H Pulse Rate 142 H 93 H Pulse Rate [ 91 H From Monitor] Respiratory 36 H 18 30 H Rate Blood Pressure 102/63 110/71 O2 Sat by Pulse 97 97 95 Oximetry 1004/21/19 04/21/19 05:01 05:41 06:01 Temperature Pulse Rate 90 91 H Pulse Rate [ From Monitor] Respiratory 33 H 29 H Rate Blood Pressure 114/66 110/66 O2 Sat by Pulse 96 96 97 Oximetry 04/21/19 04/21/19 04/21/19 06:52 07:01 08:00 Temperature 98.8 F Pulse Rate 148 H 136 H 141 H Pulse Rate [ 141 H From Monitor] Respiratory 22 20 Rate Blood Pressure 110/66 O2 Sat by Pulse 96 96 Oximetry 04/21/19 04/21/19 04/21/19 08:01 09:01 09:05 Temperature Pulse Rate 134 H 153 H 136 H Pulse Rate [ From Monitor] Respiratory 26 H 18 Rate Blood Pressure 110/66 117/72 120/75 O2 Sat by Pulse 95 95 Oximetry 04/21/19 04/21/19 04/21/19 09:32 10:01 11:00 Temperature Pulse Rate Pulse Rate [ From Monitor] Respiratory Rate Blood Pressure 117/72 44/27 O2 Sat by Pulse 96 95 96 Oximetry 04/21/19 04/21/19 12:00 13:01 Temperature 99.5 F Pulse Rate 149 H 133 H Pulse Rate [ 122 H From Monitor] Respiratory 14 19 Rate Blood Pressure 44/27 44/27 O2 Sat by Pulse 97 97 Oximetry Constitutional: no acute distress, alert Eyes: icteric ENT: oropharynx moist Neck: supple, no lymphadenopathy, no JVD, other (large neck circumference) Effort: normal Ascultation: Bilateral: diminished breath sounds, rales, rhonchi (scant) Percussion: Bilateral: not dull Cardiovascular: regular rate and rhythm, other ( S1,S2) Gastrointestinal: normoactive bowel sounds, soft, non-tender Integumentary: normal Extremities: no cyanosis, pink and warm, pulses normal, no ischemia or petechiae, edema (right upper extremity) Neurologic: normal mental status, non-focal exam (grossly), pupils equal and round, CN II-XII normal, other (very weak, intermittent confusion, left extremity weaker than the right) Psychiatric: mood appropriate, affect normal CBC and BMP: 04/21/19 04:22 04/21/19 01:34 ABG, PT/INR, D-dimer: ABG POC ABG pH 7.401 (7.35-7.45) 04/07/19 12:57 ABG pH 7.388 pH Units (7.350-7.450) 04/06/19 05:20 POC ABG pCO2 41.5 (35-45) 04/07/19 12:57 ABG pCO2 38.5 mm Hg 04/06/19 05:20 POC ABG pO2 107 (80-105) H 04/07/19 12:57 ABG pO2 104.0 mm Hg (80.0-90.0) H 04/06/19 05:20 POC ABG HCO3 25.7 (22-26 mml/L) 04/07/19 12:57 POC ABG Total CO2 27 (23-27mmol/L) 04/07/19 12:57 POC ABG O2 Sat 98 04/07/19 12:57 ABG O2 Saturation 97.8 % (95.0-99.0) 04/06/19 05:20 PT/INR, D-dimer PT 15.3 Sec. (12.2-14.9) H 03/29/19 11:48 INR 1.24 (0.87-1.13) H 03/29/19 11:48 D-Dimer 4845.98 ng/mlDDU (0-234) H 03/28/19 12:00 Abnormal lab findings: Abnormal Labs 03/16/19 03/16/19 03/16/19 15:32 16:03 16:05 WBC 27.0 H RBC 5.55 H Hgb 15.7 H Hct 47.1 H MCV MCHC RDW Plt Count 75 L Lymph % (Auto) [place] % (Auto) Lymph # [place] # Seg Neutrophils % Seg Neuts % (Manual) 85.0 H Lymphocytes % (Manual) 2.0 L Monocytes % (Manual) Nucleated RBC % Seg Neutrophils # Seg Neutrophils # Man 23.0 H Lymphocytes # (Manual) 0.5 L Monocytes # (Manual) PT INR D-Dimer Heparin Anti-Xa Level POC ABG pH ABG pH POC ABG pCO2 POC ABG pO2 ABG pO2 ABG HCO3 ABG O2 Saturation ABG Base Excess ABG Hemoglobin Oxyhemoglobin Sodium 127 L Potassium Chloride 87.8 L Carbon Dioxide 17 L BUN 49 H Creatinine 5.8 H Glucose 150 H POC Glucose 118 H Lactic Acid Calcium 6.6 L Ionized Calcium Phosphorus Magnesium 1.10 L Iron TIBC Ferritin Total Bilirubin Direct Bilirubin AST ALT Alkaline Phosphatase Total Creatine Kinase 66798 H CK-MB (CK-2) Troponin T C-Reactive Protein Total Protein Albumin Triglycerides LDL Cholesterol Direct HDL Cholesterol Free T4 PTH Intact Urine WBC (Auto) Urine Creatinine Salicylates Acetaminophen Crossmatch 03/16/19 03/16/19 03/16/19 16:59 17:05 17:05 WBC RBC Hgb Hct MCV MCHC RDW Plt Count Lymph % (Auto) [place] % (Auto) Lymph # [place] # Seg Neutrophils % Seg Neuts % (Manual) Lymphocytes % (Manual) Monocytes % (Manual) Nucleated RBC % Seg Neutrophils # Seg Neutrophils # Man Lymphocytes # (Manual) Monocytes # (Manual) PT INR D-Dimer Heparin Anti-Xa Level POC ABG pH 7.297 L ABG pH POC ABG pCO2 33.0 L POC ABG pO2 ABG pO2 ABG HCO3 ABG O2 Saturation ABG Base Excess ABG Hemoglobin Oxyhemoglobin Sodium Potassium Chloride Carbon Dioxide BUN Creatinine Glucose POC Glucose Lactic Acid Calcium Ionized Calcium Phosphorus Magnesium Iron TIBC Ferritin Total Bilirubin Direct Bilirubin AST ALT Alkaline Phosphatase Total Creatine Kinase 07764 H CK-MB (CK-2) 83.1 H Troponin T C-Reactive Protein Total Protein Albumin Triglycerides LDL Cholesterol Direct HDL Cholesterol Free T4 0.72 L PTH Intact Urine WBC (Auto) Urine Creatinine Salicylates Acetaminophen Crossmatch 03/16/19 03/16/19 03/16/19 17:05 17:05 17:05 WBC RBC Hgb Hct MCV MCHC RDW Plt Count Lymph % (Auto) [place] % (Auto) Lymph # [place] # Seg Neutrophils % Seg Neuts % (Manual) Lymphocytes % (Manual) Monocytes % (Manual) Nucleated RBC % Seg Neutrophils # Seg Neutrophils # Man Lymphocytes # (Manual) Monocytes # (Manual) PT INR D-Dimer Heparin Anti-Xa Level POC ABG pH ABG pH POC ABG pCO2 POC ABG pO2 ABG pO2 ABG HCO3 ABG O2 Saturation ABG Base Excess ABG Hemoglobin Oxyhemoglobin Sodium Potassium Chloride Carbon Dioxide BUN Creatinine Glucose POC Glucose Lactic Acid 5.10 H* Calcium Ionized Calcium Phosphorus Magnesium Iron TIBC Ferritin Total Bilirubin Direct Bilirubin AST ALT Alkaline Phosphatase Total Creatine Kinase CK-MB (CK-2) Troponin T C-Reactive Protein Total Protein Albumin Triglycerides LDL Cholesterol Direct HDL Cholesterol Free T4 PTH Intact Urine WBC (Auto) Urine Creatinine Salicylates < 0.3 L Acetaminophen < 5.0 L Crossmatch 03/16/19 03/16/19 03/16/19 17:05 17:05 20:35 WBC RBC Hgb Hct MCV MCHC RDW Plt Count Lymph % (Auto) [place] % (Auto) Lymph # [place] # Seg Neutrophils % Seg Neuts % (Manual) Lymphocytes % (Manual) Monocytes % (Manual) Nucleated RBC % Seg Neutrophils # Seg Neutrophils # Man Lymphocytes # (Manual) Monocytes # (Manual) PT 15.9 H INR 1.30 H D-Dimer Heparin Anti-Xa Level POC ABG pH ABG pH POC ABG pCO2 POC ABG pO2 ABG pO2 ABG HCO3 ABG O2 Saturation ABG Base Excess ABG Hemoglobin Oxyhemoglobin Sodium Potassium Chloride Carbon Dioxide BUN Creatinine Glucose POC Glucose Lactic Acid 3.30 H* Calcium Ionized Calcium Phosphorus Magnesium Iron TIBC Ferritin Total Bilirubin 6.20 H Direct Bilirubin 5.9 H AST 800 H ALT 120 H Alkaline Phosphatase Total Creatine Kinase CK-MB (CK-2) Troponin T C-Reactive Protein Total Protein 4.4 L Albumin 2.4 L Triglycerides LDL Cholesterol Direct HDL Cholesterol Free T4 PTH Intact Urine WBC (Auto) Urine Creatinine Salicylates Acetaminophen Crossmatch 03/16/19 03/16/19 03/16/19 21:45 22:32 Unknown WBC RBC Hgb Hct MCV MCHC RDW Plt Count Lymph % (Auto) [place] % (Auto) Lymph # [place] # Seg Neutrophils % Seg Neuts % (Manual) Lymphocytes % (Manual) Monocytes % (Manual) Nucleated RBC % Seg Neutrophils # Seg Neutrophils # Man Lymphocytes # (Manual) Monocytes # (Manual) PT INR D-Dimer Heparin Anti-Xa Level POC ABG pH ABG pH POC ABG pCO2 POC ABG pO2 ABG pO2 ABG HCO3 ABG O2 Saturation ABG Base Excess ABG Hemoglobin Oxyhemoglobin Sodium Potassium Chloride Carbon Dioxide BUN Creatinine Glucose POC Glucose Lactic Acid 3.30 H* 3.00 H* Calcium Ionized Calcium Phosphorus Magnesium Iron TIBC Ferritin Total Bilirubin Direct Bilirubin AST ALT Alkaline Phosphatase Total Creatine Kinase CK-MB (CK-2) Troponin T 0.047 H D C-Reactive Protein Total Protein Albumin Triglycerides 395 H LDL Cholesterol Direct 10 L HDL Cholesterol 7 L Free T4 PTH Intact Urine WBC (Auto) Urine Creatinine Salicylates Acetaminophen Crossmatch 03/17/19 03/17/19 03/17/19 03:45 03:45 03:45 WBC RBC Hgb Hct MCV MCHC RDW Plt Count Lymph % (Auto) [place] % (Auto) Lymph # [place] # Seg Neutrophils % Seg Neuts % (Manual) Lymphocytes % (Manual) Monocytes % (Manual) Nucleated RBC % Seg Neutrophils # Seg Neutrophils # Man Lymphocytes # (Manual) Monocytes # (Manual) PT INR D-Dimer Heparin Anti-Xa Level POC ABG pH ABG pH POC ABG pCO2 POC ABG pO2 ABG pO2 ABG HCO3 ABG O2 Saturation ABG Base Excess ABG Hemoglobin Oxyhemoglobin Sodium 131 L Potassium Chloride 88.9 L Carbon Dioxide BUN 53 H Creatinine 7.1 H Glucose POC Glucose Lactic Acid 4.10 H* Calcium 5.4 L* D Ionized Calcium Phosphorus 7.30 H Magnesium 1.60 L Iron TIBC Ferritin Total Bilirubin 5.90 H Direct Bilirubin AST 801 H ALT 109 H Alkaline Phosphatase Total Creatine Kinase 69001 H 77631 H CK-MB (CK-2) 41.5 H Troponin T 0.054 H C-Reactive Protein Total Protein 4.5 L Albumin 2.0 L Triglycerides LDL Cholesterol Direct HDL Cholesterol Free T4 PTH Intact Urine WBC (Auto) Urine Creatinine Salicylates Acetaminophen Crossmatch 03/17/19 03/17/19 03/17/19 05:47 07:16 07:16 WBC RBC Hgb Hct MCV MCHC RDW Plt Count Lymph % (Auto) [place] % (Auto) Lymph # [place] # Seg Neutrophils % Seg Neuts % (Manual) Lymphocytes % (Manual) Monocytes % (Manual) Nucleated RBC % Seg Neutrophils # Seg Neutrophils # Man Lymphocytes # (Manual) Monocytes # (Manual) PT INR D-Dimer Heparin Anti-Xa Level POC ABG pH 7.193 L ABG pH POC ABG pCO2 45.2 H POC ABG pO2 65 L ABG pO2 ABG HCO3 ABG O2 Saturation ABG Base Excess ABG Hemoglobin Oxyhemoglobin Sodium Potassium Chloride Carbon Dioxide BUN Creatinine Glucose POC Glucose Lactic Acid 5.50 H* Calcium Ionized Calcium Phosphorus Magnesium Iron TIBC Ferritin Total Bilirubin Direct Bilirubin AST ALT Alkaline Phosphatase Total Creatine Kinase 42308 H CK-MB (CK-2) 54.3 H Troponin T 0.058 H C-Reactive Protein Total Protein Albumin Triglycerides LDL Cholesterol Direct HDL Cholesterol Free T4 PTH Intact Urine WBC (Auto) Urine Creatinine Salicylates Acetaminophen Crossmatch 03/17/19 03/17/19 03/17/19 11:52 12:51 13:01 WBC RBC Hgb Hct MCV MCHC RDW Plt Count Lymph % (Auto) [place] % (Auto) Lymph # [place] # Seg Neutrophils % Seg Neuts % (Manual) Lymphocytes % (Manual) Monocytes % (Manual) Nucleated RBC % Seg Neutrophils # Seg Neutrophils # Man Lymphocytes # (Manual) Monocytes # (Manual) PT INR D-Dimer Heparin Anti-Xa Level POC ABG pH 7.154 L ABG pH POC ABG pCO2 34.3 L POC ABG pO2 73 L ABG pO2 ABG HCO3 ABG O2 Saturation ABG Base Excess ABG Hemoglobin Oxyhemoglobin Sodium Potassium Chloride Carbon Dioxide BUN Creatinine Glucose POC Glucose 60 L Lactic Acid 8.20 H* Calcium Ionized Calcium Phosphorus Magnesium Iron TIBC Ferritin Total Bilirubin Direct Bilirubin AST ALT Alkaline Phosphatase Total Creatine Kinase CK-MB (CK-2) Troponin T C-Reactive Protein Total Protein Albumin Triglycerides LDL Cholesterol Direct HDL Cholesterol Free T4 PTH Intact Urine WBC (Auto) Urine Creatinine Salicylates Acetaminophen Crossmatch 03/17/19 03/17/19 03/17/19 14:37 14:37 14:37 WBC 29.3 H RBC Hgb Hct MCV MCHC RDW 15.8 H Plt Count 45 L Lymph % (Auto) [place] % (Auto) Lymph # [place] # Seg Neutrophils % Seg Neuts % (Manual) 81.0 H Lymphocytes % (Manual) 1.0 L Monocytes % (Manual) 15.0 H Nucleated RBC % Seg Neutrophils # Seg Neutrophils # Man 23.7 H Lymphocytes # (Manual) 0.3 L Monocytes # (Manual) 4.4 H PT INR D-Dimer Heparin Anti-Xa Level POC ABG pH ABG pH POC ABG pCO2 POC ABG pO2 ABG pO2 ABG HCO3 ABG O2 Saturation ABG Base Excess ABG Hemoglobin Oxyhemoglobin Sodium Potassium Chloride Carbon Dioxide BUN Creatinine Glucose POC Glucose Lactic Acid 4.90 H* Calcium Ionized Calcium Phosphorus Magnesium Iron TIBC Ferritin Total Bilirubin Direct Bilirubin AST ALT Alkaline Phosphatase Total Creatine Kinase CK-MB (CK-2) Troponin T C-Reactive Protein 24.90 H Total Protein Albumin Triglycerides LDL Cholesterol Direct HDL Cholesterol Free T4 PTH Intact Urine WBC (Auto) Urine Creatinine Salicylates Acetaminophen Crossmatch 03/17/19 03/17/19 03/17/19 16:05 16:05 17:02 WBC RBC Hgb Hct MCV MCHC RDW Plt Count Lymph % (Auto) [place] % (Auto) Lymph # [place] # Seg Neutrophils % Seg Neuts % (Manual) Lymphocytes % (Manual) Monocytes % (Manual) Nucleated RBC % Seg Neutrophils # Seg Neutrophils # Man Lymphocytes # (Manual) Monocytes # (Manual) PT INR D-Dimer Heparin Anti-Xa Level POC ABG pH 7.183 L ABG pH POC ABG pCO2 POC ABG pO2 65 L ABG pO2 ABG HCO3 ABG O2 Saturation ABG Base Excess ABG Hemoglobin Oxyhemoglobin Sodium Potassium Chloride Carbon Dioxide BUN Creatinine Glucose POC Glucose Lactic Acid Calcium Ionized Calcium Phosphorus Magnesium Iron TIBC Ferritin Total Bilirubin Direct Bilirubin AST ALT Alkaline Phosphatase Total Creatine Kinase CK-MB (CK-2) Troponin T C-Reactive Protein Total Protein Albumin Triglycerides LDL Cholesterol Direct HDL Cholesterol Free T4 PTH Intact Urine WBC (Auto) 30.0 H Urine Creatinine 106.6 H Salicylates Acetaminophen Crossmatch 03/18/19 03/18/19 03/18/19 05:12 05:16 05:53 WBC RBC Hgb Hct MCV MCHC RDW Plt Count Lymph % (Auto) [place] % (Auto) Lymph # [place] # Seg Neutrophils % Seg Neuts % (Manual) Lymphocytes % (Manual) Monocytes % (Manual) Nucleated RBC % Seg Neutrophils # Seg Neutrophils # Man Lymphocytes # (Manual) Monocytes # (Manual) PT INR D-Dimer Heparin Anti-Xa Level POC ABG pH 7.257 L ABG pH POC ABG pCO2 31.6 L POC ABG pO2 69 L ABG pO2 ABG HCO3 ABG O2 Saturation ABG Base Excess ABG Hemoglobin Oxyhemoglobin Sodium Potassium Chloride Carbon Dioxide BUN Creatinine Glucose POC Glucose 141 H Lactic Acid 5.00 H* Calcium Ionized Calcium Phosphorus Magnesium Iron TIBC Ferritin Total Bilirubin Direct Bilirubin AST ALT Alkaline Phosphatase Total Creatine Kinase CK-MB (CK-2) Troponin T C-Reactive Protein Total Protein Albumin Triglycerides LDL Cholesterol Direct HDL Cholesterol Free T4 PTH Intact Urine WBC (Auto) Urine Creatinine Salicylates Acetaminophen Crossmatch 03/18/19 03/18/19 03/18/19 06:57 08:40 08:40 WBC 31.7 H RBC Hgb Hct MCV MCHC RDW 15.5 H Plt Count 35 L Lymph % (Auto) [place] % (Auto) Lymph # [place] # Seg Neutrophils % Seg Neuts % (Manual) Lymphocytes % (Manual) Monocytes % (Manual) Nucleated RBC % Seg Neutrophils # Seg Neutrophils # Man Lymphocytes # (Manual) Monocytes # (Manual) PT INR D-Dimer Heparin Anti-Xa Level POC ABG pH ABG pH POC ABG pCO2 POC ABG pO2 ABG pO2 ABG HCO3 ABG O2 Saturation ABG Base Excess ABG Hemoglobin Oxyhemoglobin Sodium 132 L Potassium 5.5 H D Chloride 88.5 L Carbon Dioxide 18 L BUN 71 H Creatinine 8.1 H Glucose 205 H POC Glucose Lactic Acid 5.00 H* Calcium 4.1 L* D Ionized Calcium Phosphorus Magnesium 2.40 H Iron TIBC Ferritin Total Bilirubin 7.50 H Direct Bilirubin AST 1088 H ALT 159 H Alkaline Phosphatase 190 H Total Creatine Kinase 745744 H CK-MB (CK-2) Troponin T C-Reactive Protein Total Protein 4.7 L Albumin 1.8 L Triglycerides LDL Cholesterol Direct HDL Cholesterol Free T4 PTH Intact Urine WBC (Auto) Urine Creatinine Salicylates Acetaminophen Crossmatch 03/18/19 03/18/19 03/18/19 12:33 12:50 13:19 WBC RBC Hgb Hct MCV MCHC RDW Plt Count Lymph % (Auto) [place] % (Auto) Lymph # [place] # Seg Neutrophils % Seg Neuts % (Manual) Lymphocytes % (Manual) Monocytes % (Manual) Nucleated RBC % Seg Neutrophils # Seg Neutrophils # Man Lymphocytes # (Manual) Monocytes # (Manual) PT INR D-Dimer Heparin Anti-Xa Level POC ABG pH 7.282 L ABG pH POC ABG pCO2 POC ABG pO2 67 L ABG pO2 ABG HCO3 ABG O2 Saturation ABG Base Excess ABG Hemoglobin Oxyhemoglobin Sodium Potassium Chloride Carbon Dioxide BUN Creatinine Glucose POC Glucose 129 H Lactic Acid 3.30 H* Calcium Ionized Calcium Phosphorus Magnesium Iron TIBC Ferritin Total Bilirubin Direct Bilirubin AST ALT Alkaline Phosphatase Total Creatine Kinase CK-MB (CK-2) Troponin T C-Reactive Protein Total Protein Albumin Triglycerides LDL Cholesterol Direct HDL Cholesterol Free T4 PTH Intact Urine WBC (Auto) Urine Creatinine Salicylates Acetaminophen Crossmatch 03/18/19 03/18/19 03/18/19 13:19 16:50 18:11 WBC RBC Hgb Hct MCV MCHC RDW Plt Count Lymph % (Auto) [place] % (Auto) Lymph # [place] # Seg Neutrophils % Seg Neuts % (Manual) Lymphocytes % (Manual) Monocytes % (Manual) Nucleated RBC % Seg Neutrophils # Seg Neutrophils # Man Lymphocytes # (Manual) Monocytes # (Manual) PT INR D-Dimer Heparin Anti-Xa Level POC ABG pH ABG pH POC ABG pCO2 POC ABG pO2 59 L ABG pO2 ABG HCO3 ABG O2 Saturation ABG Base Excess ABG Hemoglobin Oxyhemoglobin Sodium Potassium Chloride Carbon Dioxide BUN Creatinine Glucose POC Glucose 151 H Lactic Acid Calcium 4.2 L* Ionized Calcium Phosphorus Magnesium Iron TIBC Ferritin Total Bilirubin Direct Bilirubin AST ALT Alkaline Phosphatase Total Creatine Kinase 013366 H CK-MB (CK-2) Troponin T C-Reactive Protein Total Protein Albumin Triglycerides LDL Cholesterol Direct HDL Cholesterol Free T4 PTH Intact Urine WBC (Auto) Urine Creatinine Salicylates Acetaminophen Crossmatch 03/18/19 03/18/19 03/19/19 18:20 23:39 01:42 WBC RBC Hgb Hct MCV MCHC RDW Plt Count Lymph % (Auto) [place] % (Auto) Lymph # [place] # Seg Neutrophils % Seg Neuts % (Manual) Lymphocytes % (Manual) Monocytes % (Manual) Nucleated RBC % Seg Neutrophils # Seg Neutrophils # Man Lymphocytes # (Manual) Monocytes # (Manual) PT INR D-Dimer Heparin Anti-Xa Level POC ABG pH 7.345 L ABG pH 7.285 L POC ABG pCO2 POC ABG pO2 59 L ABG pO2 44.0 L ABG HCO3 ABG O2 Saturation 70.9 L ABG Base Excess -5.7 L ABG Hemoglobin 11.9 L Oxyhemoglobin 69.6 L Sodium Potassium Chloride Carbon Dioxide BUN Creatinine Glucose POC Glucose 152 H Lactic Acid Calcium Ionized Calcium Phosphorus Magnesium Iron TIBC Ferritin Total Bilirubin Direct Bilirubin AST ALT Alkaline Phosphatase Total Creatine Kinase CK-MB (CK-2) Troponin T C-Reactive Protein Total Protein Albumin Triglycerides LDL Cholesterol Direct HDL Cholesterol Free T4 PTH Intact Urine WBC (Auto) Urine Creatinine Salicylates Acetaminophen Crossmatch 03/19/19 03/19/19 03/19/19 04:00 04:00 05:35 WBC 36.5 H RBC Hgb Hct MCV MCHC RDW 15.8 H Plt Count 35 L Lymph % (Auto) [place] % (Auto) Lymph # [place] # Seg Neutrophils % Seg Neuts % (Manual) Lymphocytes % (Manual) Monocytes % (Manual) Nucleated RBC % Seg Neutrophils # Seg Neutrophils # Man Lymphocytes # (Manual) Monocytes # (Manual) PT INR D-Dimer Heparin Anti-Xa Level POC ABG pH ABG pH 7.265 L POC ABG pCO2 POC ABG pO2 ABG pO2 35.4 L* ABG HCO3 ABG O2 Saturation 54.4 L ABG Base Excess -6.7 L ABG Hemoglobin 12.9 L Oxyhemoglobin 53.4 L Sodium 132 L Potassium 5.7 H Chloride 89.8 L Carbon Dioxide 19 L BUN 62 H Creatinine 6.4 H Glucose 151 H POC Glucose Lactic Acid Calcium 5.2 L* D Ionized Calcium Phosphorus Magnesium Iron TIBC Ferritin Total Bilirubin 7.80 H Direct Bilirubin AST 682 H ALT 130 H Alkaline Phosphatase 167 H Total Creatine Kinase CK-MB (CK-2) Troponin T C-Reactive Protein Total Protein 4.8 L Albumin 2.3 L Triglycerides LDL Cholesterol Direct HDL Cholesterol Free T4 PTH Intact Urine WBC (Auto) Urine Creatinine Salicylates Acetaminophen Crossmatch 03/19/19 03/19/19 03/19/19 05:49 09:16 09:50 WBC RBC Hgb Hct MCV MCHC RDW Plt Count Lymph % (Auto) [place] % (Auto) Lymph # [place] # Seg Neutrophils % Seg Neuts % (Manual) Lymphocytes % (Manual) Monocytes % (Manual) Nucleated RBC % Seg Neutrophils # Seg Neutrophils # Man Lymphocytes # (Manual) Monocytes # (Manual) PT INR D-Dimer Heparin Anti-Xa Level POC ABG pH 7.222 L ABG pH POC ABG pCO2 56.6 H POC ABG pO2 ABG pO2 ABG HCO3 ABG O2 Saturation ABG Base Excess ABG Hemoglobin Oxyhemoglobin Sodium Potassium Chloride Carbon Dioxide BUN Creatinine Glucose POC Glucose 154 H Lactic Acid 2.70 H* Calcium Ionized Calcium Phosphorus Magnesium Iron TIBC Ferritin Total Bilirubin Direct Bilirubin AST ALT Alkaline Phosphatase Total Creatine Kinase CK-MB (CK-2) Troponin T C-Reactive Protein Total Protein Albumin Triglycerides LDL Cholesterol Direct HDL Cholesterol Free T4 PTH Intact Urine WBC (Auto) Urine Creatinine Salicylates Acetaminophen Crossmatch 03/19/19 03/19/19 03/19/19 09:50 11:28 17:58 WBC RBC Hgb Hct MCV MCHC RDW Plt Count Lymph % (Auto) [place] % (Auto) Lymph # [place] # Seg Neutrophils % Seg Neuts % (Manual) Lymphocytes % (Manual) Monocytes % (Manual) Nucleated RBC % Seg Neutrophils # Seg Neutrophils # Man Lymphocytes # (Manual) Monocytes # (Manual) PT INR D-Dimer Heparin Anti-Xa Level POC ABG pH 7.250 L ABG pH POC ABG pCO2 52.6 H POC ABG pO2 ABG pO2 ABG HCO3 ABG O2 Saturation ABG Base Excess ABG Hemoglobin Oxyhemoglobin Sodium Potassium Chloride Carbon Dioxide BUN Creatinine Glucose POC Glucose 160 H Lactic Acid Calcium Ionized Calcium Phosphorus Magnesium Iron TIBC Ferritin Total Bilirubin Direct Bilirubin AST ALT Alkaline Phosphatase Total Creatine Kinase 98603 H CK-MB (CK-2) Troponin T C-Reactive Protein Total Protein Albumin Triglycerides LDL Cholesterol Direct HDL Cholesterol Free T4 PTH Intact Urine WBC (Auto) Urine Creatinine Salicylates Acetaminophen Crossmatch 03/19/19 03/19/19 03/20/19 19:48 21:03 02:16 WBC RBC Hgb Hct MCV MCHC RDW Plt Count Lymph % (Auto) [place] % (Auto) Lymph # [place] # Seg Neutrophils % Seg Neuts % (Manual) Lymphocytes % (Manual) Monocytes % (Manual) Nucleated RBC % Seg Neutrophils # Seg Neutrophils # Man Lymphocytes # (Manual) Monocytes # (Manual) PT INR D-Dimer Heparin Anti-Xa Level POC ABG pH 7.279 L ABG pH POC ABG pCO2 50.3 H POC ABG pO2 129 H ABG pO2 ABG HCO3 ABG O2 Saturation ABG Base Excess ABG Hemoglobin Oxyhemoglobin Sodium Potassium Chloride Carbon Dioxide BUN Creatinine Glucose POC Glucose 119 H 119 H Lactic Acid Calcium Ionized Calcium Phosphorus Magnesium Iron TIBC Ferritin Total Bilirubin Direct Bilirubin AST ALT Alkaline Phosphatase Total Creatine Kinase CK-MB (CK-2) Troponin T C-Reactive Protein Total Protein Albumin Triglycerides LDL Cholesterol Direct HDL Cholesterol Free T4 PTH Intact Urine WBC (Auto) Urine Creatinine Salicylates Acetaminophen Crossmatch 03/20/19 03/20/19 03/20/19 04:23 05:05 09:30 WBC 36.3 H RBC Hgb Hct MCV MCHC RDW 15.5 H Plt Count 29 L Lymph % (Auto) [place] % (Auto) Lymph # [place] # Seg Neutrophils % Seg Neuts % (Manual) Lymphocytes % (Manual) Monocytes % (Manual) Nucleated RBC % Seg Neutrophils # Seg Neutrophils # Man Lymphocytes # (Manual) Monocytes # (Manual) PT INR D-Dimer Heparin Anti-Xa Level POC ABG pH ABG pH POC ABG pCO2 POC ABG pO2 280 H ABG pO2 ABG HCO3 ABG O2 Saturation ABG Base Excess ABG Hemoglobin Oxyhemoglobin Sodium Potassium Chloride Carbon Dioxide BUN Creatinine Glucose POC Glucose 115 H Lactic Acid Calcium Ionized Calcium Phosphorus Magnesium Iron TIBC Ferritin Total Bilirubin Direct Bilirubin AST ALT Alkaline Phosphatase Total Creatine Kinase CK-MB (CK-2) Troponin T C-Reactive Protein Total Protein Albumin Triglycerides LDL Cholesterol Direct HDL Cholesterol Free T4 PTH Intact Urine WBC (Auto) Urine Creatinine Salicylates Acetaminophen Crossmatch 03/20/19 03/20/19 03/20/19 09:30 09:30 11:34 WBC RBC Hgb Hct MCV MCHC RDW Plt Count Lymph % (Auto) [place] % (Auto) Lymph # [place] # Seg Neutrophils % Seg Neuts % (Manual) Lymphocytes % (Manual) Monocytes % (Manual) Nucleated RBC % Seg Neutrophils # Seg Neutrophils # Man Lymphocytes # (Manual) Monocytes # (Manual) PT INR D-Dimer Heparin Anti-Xa Level POC ABG pH ABG pH POC ABG pCO2 POC ABG pO2 ABG pO2 ABG HCO3 ABG O2 Saturation ABG Base Excess ABG Hemoglobin Oxyhemoglobin Sodium 131 L Potassium Chloride 92.3 L Carbon Dioxide 20 L BUN 68 H Creatinine 6.1 H Glucose 164 H POC Glucose 141 H Lactic Acid Calcium 5.3 L* Ionized Calcium Phosphorus Magnesium Iron TIBC Ferritin Total Bilirubin 9.50 H Direct Bilirubin AST 381 H ALT 116 H Alkaline Phosphatase 255 H Total Creatine Kinase 92754 H CK-MB (CK-2) Troponin T C-Reactive Protein Total Protein 5.1 L Albumin 2.3 L Triglycerides LDL Cholesterol Direct HDL Cholesterol Free T4 PTH Intact Urine WBC (Auto) Urine Creatinine Salicylates Acetaminophen Crossmatch 03/20/19 03/20/19 03/20/19 14:41 14:45 18:50 WBC RBC Hgb Hct MCV MCHC RDW Plt Count Lymph % (Auto) [place] % (Auto) Lymph # [place] # Seg Neutrophils % Seg Neuts % (Manual) Lymphocytes % (Manual) Monocytes % (Manual) Nucleated RBC % Seg Neutrophils # Seg Neutrophils # Man Lymphocytes # (Manual) Monocytes # (Manual) PT INR D-Dimer Heparin Anti-Xa Level POC ABG pH ABG pH POC ABG pCO2 POC ABG pO2 ABG pO2 ABG HCO3 ABG O2 Saturation ABG Base Excess ABG Hemoglobin Oxyhemoglobin Sodium Potassium Chloride Carbon Dioxide BUN Creatinine Glucose POC Glucose 117 H Lactic Acid 2.90 H* Calcium Ionized Calcium Phosphorus Magnesium Iron TIBC Ferritin Total Bilirubin Direct Bilirubin AST ALT Alkaline Phosphatase Total Creatine Kinase CK-MB (CK-2) Troponin T C-Reactive Protein 13.30 H Total Protein Albumin Triglycerides LDL Cholesterol Direct HDL Cholesterol Free T4 PTH Intact Urine WBC (Auto) Urine Creatinine Salicylates Acetaminophen Crossmatch 03/20/19 03/21/19 03/21/19 21:55 04:26 04:26 WBC 37.8 H RBC Hgb Hct MCV MCHC RDW 15.4 H Plt Count 36 L Lymph % (Auto) [place] % (Auto) Lymph # [place] # Seg Neutrophils % Seg Neuts % (Manual) 93.0 H Lymphocytes % (Manual) 3.0 L Monocytes % (Manual) Nucleated RBC % 1.0 H Seg Neutrophils # 34.6 H Seg Neutrophils # Man 35.2 H Lymphocytes # (Manual) 1.1 L Monocytes # (Manual) PT INR D-Dimer Heparin Anti-Xa Level POC ABG pH ABG pH POC ABG pCO2 POC ABG pO2 ABG pO2 ABG HCO3 ABG O2 Saturation ABG Base Excess ABG Hemoglobin Oxyhemoglobin Sodium 131 L Potassium Chloride 90.7 L Carbon Dioxide 21 L BUN 69 H Creatinine 5.7 H Glucose 170 H POC Glucose 128 H Lactic Acid Calcium 6.1 L D Ionized Calcium Phosphorus Magnesium Iron TIBC Ferritin Total Bilirubin 9.50 H Direct Bilirubin AST 308 H ALT 124 H Alkaline Phosphatase 327 H Total Creatine Kinase 66782 H CK-MB (CK-2) Troponin T C-Reactive Protein Total Protein 5.7 L Albumin 2.6 L Triglycerides LDL Cholesterol Direct HDL Cholesterol Free T4 PTH Intact Urine WBC (Auto) Urine Creatinine Salicylates Acetaminophen Crossmatch 03/21/19 03/21/19 03/21/19 05:17 05:39 08:29 WBC RBC Hgb Hct MCV MCHC RDW Plt Count Lymph % (Auto) [place] % (Auto) Lymph # [place] # Seg Neutrophils % Seg Neuts % (Manual) Lymphocytes % (Manual) Monocytes % (Manual) Nucleated RBC % Seg Neutrophils # Seg Neutrophils # Man Lymphocytes # (Manual) Monocytes # (Manual) PT INR D-Dimer Heparin Anti-Xa Level POC ABG pH ABG pH POC ABG pCO2 POC ABG pO2 209 H ABG pO2 ABG HCO3 ABG O2 Saturation ABG Base Excess ABG Hemoglobin Oxyhemoglobin Sodium Potassium Chloride Carbon Dioxide BUN Creatinine Glucose POC Glucose 145 H Lactic Acid Calcium Ionized Calcium Phosphorus Magnesium Iron TIBC Ferritin Total Bilirubin Direct Bilirubin AST ALT Alkaline Phosphatase Total Creatine Kinase 01797 H CK-MB (CK-2) Troponin T C-Reactive Protein Total Protein Albumin Triglycerides LDL Cholesterol Direct HDL Cholesterol Free T4 PTH Intact Urine WBC (Auto) Urine Creatinine Salicylates Acetaminophen Crossmatch 03/21/19 03/21/19 03/21/19 08:29 11:43 12:00 WBC RBC Hgb Hct MCV MCHC RDW Plt Count Lymph % (Auto) [place] % (Auto) Lymph # [place] # Seg Neutrophils % Seg Neuts % (Manual) Lymphocytes % (Manual) Monocytes % (Manual) Nucleated RBC % Seg Neutrophils # Seg Neutrophils # Man Lymphocytes # (Manual) Monocytes # (Manual) PT INR D-Dimer Heparin Anti-Xa Level POC ABG pH ABG pH POC ABG pCO2 POC ABG pO2 ABG pO2 ABG HCO3 ABG O2 Saturation ABG Base Excess ABG Hemoglobin Oxyhemoglobin Sodium Potassium Chloride Carbon Dioxide BUN Creatinine Glucose POC Glucose 123 H Lactic Acid 2.60 H* 2.20 H* Calcium Ionized Calcium Phosphorus Magnesium Iron TIBC Ferritin Total Bilirubin Direct Bilirubin AST ALT Alkaline Phosphatase Total Creatine Kinase CK-MB (CK-2) Troponin T C-Reactive Protein Total Protein Albumin Triglycerides LDL Cholesterol Direct HDL Cholesterol Free T4 PTH Intact Urine WBC (Auto) Urine Creatinine Salicylates Acetaminophen Crossmatch 03/21/19 03/21/19 03/21/19 14:11 18:28 19:32 WBC RBC Hgb Hct MCV MCHC RDW Plt Count Lymph % (Auto) [place] % (Auto) Lymph # [place] # Seg Neutrophils % Seg Neuts % (Manual) Lymphocytes % (Manual) Monocytes % (Manual) Nucleated RBC % Seg Neutrophils # Seg Neutrophils # Man Lymphocytes # (Manual) Monocytes # (Manual) PT INR D-Dimer Heparin Anti-Xa Level POC ABG pH 7.293 L ABG pH POC ABG pCO2 POC ABG pO2 ABG pO2 ABG HCO3 ABG O2 Saturation ABG Base Excess ABG Hemoglobin Oxyhemoglobin Sodium Potassium Chloride Carbon Dioxide BUN Creatinine Glucose POC Glucose 153 H Lactic Acid 2.10 H* Calcium Ionized Calcium Phosphorus Magnesium Iron TIBC Ferritin Total Bilirubin Direct Bilirubin AST ALT Alkaline Phosphatase Total Creatine Kinase CK-MB (CK-2) Troponin T C-Reactive Protein Total Protein Albumin Triglycerides LDL Cholesterol Direct HDL Cholesterol Free T4 PTH Intact Urine WBC (Auto) Urine Creatinine Salicylates Acetaminophen Crossmatch 03/21/19 03/22/19 03/22/19 23:38 05:08 05:51 WBC RBC Hgb Hct MCV MCHC RDW Plt Count Lymph % (Auto) [place] % (Auto) Lymph # [place] # Seg Neutrophils % Seg Neuts % (Manual) Lymphocytes % (Manual) Monocytes % (Manual) Nucleated RBC % Seg Neutrophils # Seg Neutrophils # Man Lymphocytes # (Manual) Monocytes # (Manual) PT INR D-Dimer Heparin Anti-Xa Level POC ABG pH 7.283 L ABG pH POC ABG pCO2 POC ABG pO2 53 L ABG pO2 ABG HCO3 ABG O2 Saturation ABG Base Excess ABG Hemoglobin Oxyhemoglobin Sodium Potassium Chloride Carbon Dioxide BUN Creatinine Glucose POC Glucose 149 H 131 H Lactic Acid Calcium Ionized Calcium Phosphorus Magnesium Iron TIBC Ferritin Total Bilirubin Direct Bilirubin AST ALT Alkaline Phosphatase Total Creatine Kinase CK-MB (CK-2) Troponin T C-Reactive Protein Total Protein Albumin Triglycerides LDL Cholesterol Direct HDL Cholesterol Free T4 PTH Intact Urine WBC (Auto) Urine Creatinine Salicylates Acetaminophen Crossmatch 03/22/19 03/22/19 03/22/19 08:00 08:00 18:19 WBC 36.7 H RBC Hgb 11.0 L Hct 33.5 L MCV MCHC RDW 15.5 H Plt Count 43 L Lymph % (Auto) [place] % (Auto) Lymph # [place] # Seg Neutrophils % Seg Neuts % (Manual) 87.0 H Lymphocytes % (Manual) 7.0 L Monocytes % (Manual) Nucleated RBC % Seg Neutrophils # Seg Neutrophils # Man 31.9 H Lymphocytes # (Manual) Monocytes # (Manual) PT INR D-Dimer Heparin Anti-Xa Level POC ABG pH ABG pH POC ABG pCO2 46.4 H POC ABG pO2 108 H ABG pO2 ABG HCO3 ABG O2 Saturation ABG Base Excess ABG Hemoglobin Oxyhemoglobin Sodium 132 L Potassium 5.6 H Chloride 89.6 L Carbon Dioxide 20 L BUN 101 H Creatinine 7.4 H Glucose 124 H POC Glucose Lactic Acid Calcium 5.2 L* Ionized Calcium Phosphorus Magnesium Iron TIBC Ferritin Total Bilirubin 2.80 H Direct Bilirubin AST 119 H ALT 86 H Alkaline Phosphatase 245 H Total Creatine Kinase CK-MB (CK-2) Troponin T C-Reactive Protein Total Protein 5.6 L Albumin 2.5 L Triglycerides LDL Cholesterol Direct HDL Cholesterol Free T4 PTH Intact Urine WBC (Auto) Urine Creatinine Salicylates Acetaminophen Crossmatch 03/22/19 03/23/19 03/23/19 20:37 04:49 05:28 WBC 35.9 H RBC Hgb 10.8 L Hct 33.2 L MCV MCHC RDW 15.5 H Plt Count 49 L Lymph % (Auto) [place] % (Auto) Lymph # [place] # Seg Neutrophils % Seg Neuts % (Manual) 81.0 H Lymphocytes % (Manual) 3.5 L Monocytes % (Manual) Nucleated RBC % Seg Neutrophils # Seg Neutrophils # Man 29.1 H Lymphocytes # (Manual) Monocytes # (Manual) 1.4 H PT INR D-Dimer Heparin Anti-Xa Level POC ABG pH 7.296 L ABG pH POC ABG pCO2 46.2 H POC ABG pO2 ABG pO2 ABG HCO3 ABG O2 Saturation ABG Base Excess ABG Hemoglobin Oxyhemoglobin Sodium 129 L Potassium 5.2 H Chloride 91.1 L Carbon Dioxide BUN 91 H Creatinine 6.6 H Glucose 190 H POC Glucose Lactic Acid Calcium 5.3 L* Ionized Calcium Phosphorus Magnesium Iron TIBC Ferritin Total Bilirubin 1.80 H Direct Bilirubin AST 80 H ALT 62 H Alkaline Phosphatase 209 H Total Creatine Kinase 9758 H CK-MB (CK-2) Troponin T C-Reactive Protein Total Protein 5.2 L Albumin 2.2 L Triglycerides LDL Cholesterol Direct HDL Cholesterol Free T4 PTH Intact Urine WBC (Auto) Urine Creatinine Salicylates Acetaminophen Crossmatch 03/23/19 03/23/19 03/23/19 05:28 05:31 11:33 WBC 29.7 H RBC 3.59 L Hgb 10.1 L Hct 31.1 L MCV MCHC RDW 15.4 H Plt Count 47 L Lymph % (Auto) [place] % (Auto) Lymph # [place] # Seg Neutrophils % Seg Neuts % (Manual) 89.0 H Lymphocytes % (Manual) 6.0 L Monocytes % (Manual) Nucleated RBC % 1.0 H Seg Neutrophils # Seg Neutrophils # Man 26.4 H Lymphocytes # (Manual) Monocytes # (Manual) PT INR D-Dimer Heparin Anti-Xa Level POC ABG pH ABG pH POC ABG pCO2 POC ABG pO2 ABG pO2 ABG HCO3 ABG O2 Saturation ABG Base Excess ABG Hemoglobin Oxyhemoglobin Sodium Potassium Chloride Carbon Dioxide BUN Creatinine Glucose POC Glucose 122 H 113 H Lactic Acid Calcium Ionized Calcium Phosphorus Magnesium Iron TIBC Ferritin Total Bilirubin Direct Bilirubin AST ALT Alkaline Phosphatase Total Creatine Kinase CK-MB (CK-2) Troponin T C-Reactive Protein Total Protein Albumin Triglycerides LDL Cholesterol Direct HDL Cholesterol Free T4 PTH Intact Urine WBC (Auto) Urine Creatinine Salicylates Acetaminophen Crossmatch 03/23/19 03/24/19 03/24/19 17:47 00:00 04:50 WBC 35.0 H RBC Hgb 10.4 L Hct 32.4 L MCV MCHC RDW Plt Count 60 L Lymph % (Auto) [place] % (Auto) Lymph # [place] # Seg Neutrophils % Seg Neuts % (Manual) 93.0 H Lymphocytes % (Manual) 5.0 L Monocytes % (Manual) Nucleated RBC % 7.0 H Seg Neutrophils # Seg Neutrophils # Man 32.6 H Lymphocytes # (Manual) Monocytes # (Manual) PT INR D-Dimer Heparin Anti-Xa Level POC ABG pH ABG pH POC ABG pCO2 POC ABG pO2 ABG pO2 ABG HCO3 ABG O2 Saturation ABG Base Excess ABG Hemoglobin Oxyhemoglobin Sodium Potassium Chloride Carbon Dioxide BUN Creatinine Glucose POC Glucose 111 H 108 H Lactic Acid Calcium Ionized Calcium Phosphorus Magnesium Iron TIBC Ferritin Total Bilirubin Direct Bilirubin AST ALT Alkaline Phosphatase Total Creatine Kinase CK-MB (CK-2) Troponin T C-Reactive Protein Total Protein Albumin Triglycerides LDL Cholesterol Direct HDL Cholesterol Free T4 PTH Intact Urine WBC (Auto) Urine Creatinine Salicylates Acetaminophen Crossmatch 03/24/19 03/24/19 03/24/19 04:50 05:06 12:55 WBC RBC Hgb Hct MCV MCHC RDW Plt Count Lymph % (Auto) [place] % (Auto) Lymph # [place] # Seg Neutrophils % Seg Neuts % (Manual) Lymphocytes % (Manual) Monocytes % (Manual) Nucleated RBC % Seg Neutrophils # Seg Neutrophils # Man Lymphocytes # (Manual) Monocytes # (Manual) PT INR D-Dimer Heparin Anti-Xa Level POC ABG pH ABG pH POC ABG pCO2 POC ABG pO2 ABG pO2 ABG HCO3 ABG O2 Saturation ABG Base Excess ABG Hemoglobin Oxyhemoglobin Sodium 134 L Potassium 5.1 H Chloride 95.3 L Carbon Dioxide 21 L BUN 85 H Creatinine 6.4 H Glucose 109 H POC Glucose 112 H 110 H Lactic Acid Calcium 5.8 L* Ionized Calcium Phosphorus Magnesium Iron TIBC Ferritin Total Bilirubin Direct Bilirubin AST ALT Alkaline Phosphatase Total Creatine Kinase 5747 H CK-MB (CK-2) Troponin T C-Reactive Protein Total Protein Albumin Triglycerides LDL Cholesterol Direct HDL Cholesterol Free T4 PTH Intact Urine WBC (Auto) Urine Creatinine Salicylates Acetaminophen Crossmatch 03/24/19 03/25/19 03/25/19 23:29 05:00 05:00 WBC RBC Hgb Hct MCV MCHC RDW Plt Count Lymph % (Auto) [place] % (Auto) Lymph # [place] # Seg Neutrophils % Seg Neuts % (Manual) Lymphocytes % (Manual) Monocytes % (Manual) Nucleated RBC % Seg Neutrophils # Seg Neutrophils # Man Lymphocytes # (Manual) Monocytes # (Manual) PT INR D-Dimer Heparin Anti-Xa Level POC ABG pH ABG pH POC ABG pCO2 POC ABG pO2 ABG pO2 ABG HCO3 ABG O2 Saturation ABG Base Excess ABG Hemoglobin Oxyhemoglobin Sodium 133 L Potassium Chloride 94.0 L Carbon Dioxide 21 L BUN 81 H Creatinine 6.4 H Glucose POC Glucose 109 H Lactic Acid Calcium 5.5 L* Ionized Calcium Phosphorus Magnesium Iron TIBC Ferritin Total Bilirubin Direct Bilirubin AST 80 H ALT Alkaline Phosphatase 202 H Total Creatine Kinase 3589 H CK-MB (CK-2) Troponin T C-Reactive Protein Total Protein 5.3 L Albumin 2.4 L Triglycerides LDL Cholesterol Direct HDL Cholesterol Free T4 PTH Intact 329.9 H Urine WBC (Auto) Urine Creatinine Salicylates Acetaminophen Crossmatch 03/25/19 03/25/19 03/26/19 05:00 06:30 04:30 WBC 23.3 H RBC 3.61 L Hgb 10.2 L Hct 31.2 L MCV MCHC RDW Plt Count 57 L Lymph % (Auto) [place] % (Auto) Lymph # [place] # Seg Neutrophils % Seg Neuts % (Manual) 92.0 H Lymphocytes % (Manual) 6.0 L Monocytes % (Manual) Nucleated RBC % Seg Neutrophils # Seg Neutrophils # Man 21.4 H Lymphocytes # (Manual) Monocytes # (Manual) PT INR D-Dimer Heparin Anti-Xa Level POC ABG pH ABG pH 7.326 L POC ABG pCO2 POC ABG pO2 ABG pO2 109.5 H 137.4 H ABG HCO3 18.8 L 18.6 L ABG O2 Saturation ABG Base Excess -4.4 L -6.8 L ABG Hemoglobin 10.1 L 9.9 L Oxyhemoglobin Sodium Potassium Chloride Carbon Dioxide BUN Creatinine Glucose POC Glucose Lactic Acid Calcium Ionized Calcium Phosphorus Magnesium Iron TIBC Ferritin Total Bilirubin Direct Bilirubin AST ALT Alkaline Phosphatase Total Creatine Kinase CK-MB (CK-2) Troponin T C-Reactive Protein Total Protein Albumin Triglycerides LDL Cholesterol Direct HDL Cholesterol Free T4 PTH Intact Urine WBC (Auto) Urine Creatinine Salicylates Acetaminophen Crossmatch 03/26/19 03/26/19 03/26/19 23:22 Unknown Unknown WBC 19.5 H RBC 3.44 L Hgb 9.8 L Hct 29.9 L MCV MCHC RDW Plt Count 85 L Lymph % (Auto) [place] % (Auto) Lymph # [place] # Seg Neutrophils % Seg Neuts % (Manual) 95.0 H Lymphocytes % (Manual) 3.0 L Monocytes % (Manual) Nucleated RBC % Seg Neutrophils # Seg Neutrophils # Man 18.5 H Lymphocytes # (Manual) 0.6 L Monocytes # (Manual) PT INR D-Dimer Heparin Anti-Xa Level POC ABG pH ABG pH POC ABG pCO2 POC ABG pO2 ABG pO2 ABG HCO3 ABG O2 Saturation ABG Base Excess ABG Hemoglobin Oxyhemoglobin Sodium 135 L Potassium 5.2 H D Chloride 92.2 L Carbon Dioxide 18 L BUN 109 H Creatinine 8.5 H Glucose 117 H POC Glucose 69 L Lactic Acid Calcium 4.5 L* D Ionized Calcium Phosphorus Magnesium Iron TIBC Ferritin Total Bilirubin Direct Bilirubin AST ALT Alkaline Phosphatase Total Creatine Kinase 4527 H CK-MB (CK-2) Troponin T C-Reactive Protein Total Protein Albumin Triglycerides LDL Cholesterol Direct HDL Cholesterol Free T4 PTH Intact Urine WBC (Auto) Urine Creatinine Salicylates Acetaminophen Crossmatch 03/27/19 03/27/19 03/27/19 04:30 04:30 09:00 WBC 19.2 H RBC 3.42 L Hgb 9.9 L Hct 30.0 L MCV MCHC RDW Plt Count 84 L Lymph % (Auto) [place] % (Auto) Lymph # [place] # Seg Neutrophils % Seg Neuts % (Manual) Lymphocytes % (Manual) Monocytes % (Manual) Nucleated RBC % Seg Neutrophils # Seg Neutrophils # Man Lymphocytes # (Manual) Monocytes # (Manual) PT INR D-Dimer Heparin Anti-Xa Level POC ABG pH ABG pH POC ABG pCO2 POC ABG pO2 ABG pO2 ABG HCO3 ABG O2 Saturation ABG Base Excess ABG Hemoglobin Oxyhemoglobin Sodium 135 L Potassium Chloride 93.5 L Carbon Dioxide BUN 84 H Creatinine 7.1 H Glucose POC Glucose Lactic Acid Calcium 5.0 L* Ionized Calcium Phosphorus Magnesium Iron TIBC Ferritin Total Bilirubin Direct Bilirubin AST 78 H ALT Alkaline Phosphatase 135 H Total Creatine Kinase 4677 H CK-MB (CK-2) Troponin T C-Reactive Protein Total Protein 4.8 L Albumin 2.3 L Triglycerides 409 H LDL Cholesterol Direct HDL Cholesterol Free T4 PTH Intact Urine WBC (Auto) Urine Creatinine Salicylates Acetaminophen Crossmatch 03/27/19 03/27/19 03/27/19 12:37 14:15 14:15 WBC RBC Hgb 9.7 L Hct 29.5 L MCV MCHC RDW Plt Count 87 L Lymph % (Auto) [place] % (Auto) Lymph # [place] # Seg Neutrophils % Seg Neuts % (Manual) Lymphocytes % (Manual) Monocytes % (Manual) Nucleated RBC % Seg Neutrophils # Seg Neutrophils # Man Lymphocytes # (Manual) Monocytes # (Manual) PT 15.9 H INR 1.30 H D-Dimer Heparin Anti-Xa Level POC ABG pH ABG pH POC ABG pCO2 POC ABG pO2 ABG pO2 ABG HCO3 ABG O2 Saturation ABG Base Excess ABG Hemoglobin Oxyhemoglobin Sodium Potassium Chloride Carbon Dioxide BUN Creatinine Glucose POC Glucose 129 H Lactic Acid Calcium Ionized Calcium Phosphorus Magnesium Iron TIBC Ferritin Total Bilirubin Direct Bilirubin AST ALT Alkaline Phosphatase Total Creatine Kinase CK-MB (CK-2) Troponin T C-Reactive Protein Total Protein Albumin Triglycerides LDL Cholesterol Direct HDL Cholesterol Free T4 PTH Intact Urine WBC (Auto) Urine Creatinine Salicylates Acetaminophen Crossmatch 03/27/19 03/27/19 03/27/19 18:00 19:22 19:23 WBC RBC Hgb Hct MCV MCHC RDW Plt Count Lymph % (Auto) [place] % (Auto) Lymph # [place] # Seg Neutrophils % Seg Neuts % (Manual) Lymphocytes % (Manual) Monocytes % (Manual) Nucleated RBC % Seg Neutrophils # Seg Neutrophils # Man Lymphocytes # (Manual) Monocytes # (Manual) PT INR D-Dimer Heparin Anti-Xa Level < 0.10 L POC ABG pH ABG pH POC ABG pCO2 POC ABG pO2 ABG pO2 ABG HCO3 ABG O2 Saturation ABG Base Excess ABG Hemoglobin Oxyhemoglobin Sodium Potassium Chloride Carbon Dioxide BUN Creatinine Glucose POC Glucose 121 H Lactic Acid Calcium Ionized Calcium Phosphorus Magnesium Iron TIBC Ferritin Total Bilirubin Direct Bilirubin AST ALT Alkaline Phosphatase Total Creatine Kinase 4517 H CK-MB (CK-2) Troponin T C-Reactive Protein Total Protein Albumin Triglycerides LDL Cholesterol Direct HDL Cholesterol Free T4 PTH Intact Urine WBC (Auto) Urine Creatinine Salicylates Acetaminophen Crossmatch 03/27/19 03/27/19 03/28/19 22:10 23:52 03:49 WBC RBC Hgb Hct MCV MCHC RDW Plt Count Lymph % (Auto) [place] % (Auto) Lymph # [place] # Seg Neutrophils % Seg Neuts % (Manual) Lymphocytes % (Manual) Monocytes % (Manual) Nucleated RBC % Seg Neutrophils # Seg Neutrophils # Man Lymphocytes # (Manual) Monocytes # (Manual) PT INR D-Dimer Heparin Anti-Xa Level POC ABG pH 7.338 L ABG pH POC ABG pCO2 33.1 L POC ABG pO2 ABG pO2 ABG HCO3 ABG O2 Saturation ABG Base Excess ABG Hemoglobin Oxyhemoglobin Sodium Potassium Chloride Carbon Dioxide BUN Creatinine Glucose POC Glucose 113 H 117 H Lactic Acid Calcium Ionized Calcium Phosphorus Magnesium Iron TIBC Ferritin Total Bilirubin Direct Bilirubin AST ALT Alkaline Phosphatase Total Creatine Kinase CK-MB (CK-2) Troponin T C-Reactive Protein Total Protein Albumin Triglycerides LDL Cholesterol Direct HDL Cholesterol Free T4 PTH Intact Urine WBC (Auto) Urine Creatinine Salicylates Acetaminophen Crossmatch 03/28/19 03/28/19 03/28/19 05:13 05:13 06:18 WBC RBC Hgb Hct MCV MCHC RDW Plt Count Lymph % (Auto) [place] % (Auto) Lymph # [place] # Seg Neutrophils % Seg Neuts % (Manual) Lymphocytes % (Manual) Monocytes % (Manual) Nucleated RBC % Seg Neutrophils # Seg Neutrophils # Man Lymphocytes # (Manual) Monocytes # (Manual) PT INR D-Dimer Heparin Anti-Xa Level 0.23 L POC ABG pH ABG pH POC ABG pCO2 POC ABG pO2 ABG pO2 ABG HCO3 ABG O2 Saturation ABG Base Excess ABG Hemoglobin Oxyhemoglobin Sodium 135 L Potassium 5.5 H D Chloride 95.1 L Carbon Dioxide 16 L D BUN 129 H Creatinine 9.3 H Glucose 158 H POC Glucose 202 H Lactic Acid Calcium 4.0 L* D Ionized Calcium Phosphorus 12.40 H Magnesium Iron TIBC Ferritin Total Bilirubin Direct Bilirubin AST ALT Alkaline Phosphatase Total Creatine Kinase 4266 H CK-MB (CK-2) Troponin T C-Reactive Protein Total Protein Albumin Triglycerides LDL Cholesterol Direct HDL Cholesterol Free T4 PTH Intact Urine WBC (Auto) Urine Creatinine Salicylates Acetaminophen Crossmatch 03/28/19 03/28/19 03/28/19 08:25 10:00 12:00 WBC RBC Hgb 4.9 L* D Hct 15.4 L* D MCV MCHC RDW Plt Count Lymph % (Auto) [place] % (Auto) Lymph # [place] # Seg Neutrophils % Seg Neuts % (Manual) Lymphocytes % (Manual) Monocytes % (Manual) Nucleated RBC % Seg Neutrophils # Seg Neutrophils # Man Lymphocytes # (Manual) Monocytes # (Manual) PT 17.9 H INR 1.52 H D-Dimer 4845.98 H Heparin Anti-Xa Level POC ABG pH ABG pH POC ABG pCO2 POC ABG pO2 ABG pO2 ABG HCO3 ABG O2 Saturation ABG Base Excess ABG Hemoglobin Oxyhemoglobin Sodium Potassium Chloride Carbon Dioxide BUN Creatinine Glucose POC Glucose Lactic Acid Calcium Ionized Calcium Phosphorus Magnesium Iron TIBC Ferritin Total Bilirubin Direct Bilirubin AST ALT Alkaline Phosphatase Total Creatine Kinase CK-MB (CK-2) Troponin T C-Reactive Protein Total Protein Albumin Triglycerides LDL Cholesterol Direct HDL Cholesterol Free T4 PTH Intact Urine WBC (Auto) Urine Creatinine Salicylates Acetaminophen Crossmatch See Detail 03/28/19 03/28/19 03/28/19 12:28 14:10 17:43 WBC RBC Hgb 5.9 L* Hct 18.3 L* MCV MCHC RDW Plt Count Lymph % (Auto) [place] % (Auto) Lymph # [place] # Seg Neutrophils % Seg Neuts % (Manual) Lymphocytes % (Manual) Monocytes % (Manual) Nucleated RBC % Seg Neutrophils # Seg Neutrophils # Man Lymphocytes # (Manual) Monocytes # (Manual) PT INR D-Dimer Heparin Anti-Xa Level POC ABG pH ABG pH POC ABG pCO2 POC ABG pO2 ABG pO2 ABG HCO3 ABG O2 Saturation ABG Base Excess ABG Hemoglobin Oxyhemoglobin Sodium Potassium Chloride Carbon Dioxide BUN Creatinine Glucose POC Glucose 153 H 159 H Lactic Acid Calcium Ionized Calcium Phosphorus Magnesium Iron TIBC Ferritin Total Bilirubin Direct Bilirubin AST ALT Alkaline Phosphatase Total Creatine Kinase CK-MB (CK-2) Troponin T C-Reactive Protein Total Protein Albumin Triglycerides LDL Cholesterol Direct HDL Cholesterol Free T4 PTH Intact Urine WBC (Auto) Urine Creatinine Salicylates Acetaminophen Crossmatch 03/28/19 03/28/19 03/28/19 18:10 Unknown 23:59 WBC 24.8 H RBC 3.42 L Hgb 10.2 L D Hct 31.1 L D MCV MCHC RDW 15.4 H Plt Count 54 L Lymph % (Auto) [place] % (Auto) Lymph # [place] # Seg Neutrophils % Seg Neuts % (Manual) 91.0 H Lymphocytes % (Manual) 8.0 L Monocytes % (Manual) Nucleated RBC % Seg Neutrophils # Seg Neutrophils # Man 22.6 H Lymphocytes # (Manual) Monocytes # (Manual) PT INR D-Dimer Heparin Anti-Xa Level POC ABG pH ABG pH POC ABG pCO2 POC ABG pO2 ABG pO2 ABG HCO3 ABG O2 Saturation ABG Base Excess ABG Hemoglobin Oxyhemoglobin Sodium Potassium 5.7 H Chloride Carbon Dioxide BUN Creatinine Glucose POC Glucose 107 H Lactic Acid Calcium Ionized Calcium Phosphorus Magnesium Iron TIBC Ferritin Total Bilirubin Direct Bilirubin AST ALT Alkaline Phosphatase Total Creatine Kinase CK-MB (CK-2) Troponin T C-Reactive Protein Total Protein Albumin Triglycerides LDL Cholesterol Direct HDL Cholesterol Free T4 PTH Intact Urine WBC (Auto) Urine Creatinine Salicylates Acetaminophen Crossmatch 03/29/19 03/29/19 03/29/19 04:29 05:46 06:22 WBC RBC Hgb 8.6 L Hct 25.7 L MCV MCHC RDW Plt Count 93 L Lymph % (Auto) [place] % (Auto) Lymph # [place] # Seg Neutrophils % Seg Neuts % (Manual) Lymphocytes % (Manual) Monocytes % (Manual) Nucleated RBC % Seg Neutrophils # Seg Neutrophils # Man Lymphocytes # (Manual) Monocytes # (Manual) PT INR D-Dimer Heparin Anti-Xa Level POC ABG pH ABG pH POC ABG pCO2 32.2 L POC ABG pO2 ABG pO2 ABG HCO3 ABG O2 Saturation ABG Base Excess ABG Hemoglobin Oxyhemoglobin Sodium Potassium Chloride Carbon Dioxide BUN Creatinine Glucose POC Glucose 113 H Lactic Acid Calcium Ionized Calcium Phosphorus Magnesium Iron TIBC Ferritin Total Bilirubin Direct Bilirubin AST ALT Alkaline Phosphatase Total Creatine Kinase CK-MB (CK-2) Troponin T C-Reactive Protein Total Protein Albumin Triglycerides LDL Cholesterol Direct HDL Cholesterol Free T4 PTH Intact Urine WBC (Auto) Urine Creatinine Salicylates Acetaminophen Crossmatch 03/29/19 03/29/19 03/29/19 06:22 06:22 06:22 WBC 23.2 H RBC 2.91 L Hgb 8.6 L Hct 25.8 L MCV MCHC RDW Plt Count 91 L Lymph % (Auto) [place] % (Auto) Lymph # [place] # Seg Neutrophils % Seg Neuts % (Manual) Lymphocytes % (Manual) Monocytes % (Manual) Nucleated RBC % Seg Neutrophils # Seg Neutrophils # Man Lymphocytes # (Manual) Monocytes # (Manual) PT INR D-Dimer Heparin Anti-Xa Level POC ABG pH ABG pH POC ABG pCO2 POC ABG pO2 ABG pO2 ABG HCO3 ABG O2 Saturation ABG Base Excess ABG Hemoglobin Oxyhemoglobin Sodium 133 L Potassium Chloride 93.8 L Carbon Dioxide 18 L BUN 109 H Creatinine 7.4 H Glucose 124 H POC Glucose Lactic Acid Calcium 4.6 L* Ionized Calcium Phosphorus Magnesium Iron TIBC Ferritin Total Bilirubin Direct Bilirubin AST ALT Alkaline Phosphatase Total Creatine Kinase 3401 H CK-MB (CK-2) Troponin T C-Reactive Protein Total Protein Albumin Triglycerides 309 H LDL Cholesterol Direct HDL Cholesterol Free T4 PTH Intact Urine WBC (Auto) Urine Creatinine Salicylates Acetaminophen Crossmatch 03/29/19 03/29/19 03/29/19 11:48 11:48 18:24 WBC RBC Hgb 7.8 L Hct 23.2 L MCV MCHC RDW Plt Count Lymph % (Auto) [place] % (Auto) Lymph # [place] # Seg Neutrophils % Seg Neuts % (Manual) Lymphocytes % (Manual) Monocytes % (Manual) Nucleated RBC % Seg Neutrophils # Seg Neutrophils # Man Lymphocytes # (Manual) Monocytes # (Manual) PT 15.3 H INR 1.24 H D-Dimer Heparin Anti-Xa Level POC ABG pH ABG pH POC ABG pCO2 POC ABG pO2 ABG pO2 ABG HCO3 ABG O2 Saturation ABG Base Excess ABG Hemoglobin Oxyhemoglobin Sodium Potassium Chloride Carbon Dioxide BUN Creatinine Glucose POC Glucose 122 H Lactic Acid Calcium Ionized Calcium Phosphorus Magnesium Iron TIBC Ferritin Total Bilirubin Direct Bilirubin AST ALT Alkaline Phosphatase Total Creatine Kinase CK-MB (CK-2) Troponin T C-Reactive Protein Total Protein Albumin Triglycerides LDL Cholesterol Direct HDL Cholesterol Free T4 PTH Intact Urine WBC (Auto) Urine Creatinine Salicylates Acetaminophen Crossmatch 03/30/19 03/30/19 03/30/19 00:40 04:31 05:04 WBC RBC Hgb 7.6 L Hct 23.0 L MCV MCHC RDW Plt Count Lymph % (Auto) [place] % (Auto) Lymph # [place] # Seg Neutrophils % Seg Neuts % (Manual) Lymphocytes % (Manual) Monocytes % (Manual) Nucleated RBC % Seg Neutrophils # Seg Neutrophils # Man Lymphocytes # (Manual) Monocytes # (Manual) PT INR D-Dimer Heparin Anti-Xa Level POC ABG pH 7.346 L ABG pH POC ABG pCO2 POC ABG pO2 62 L ABG pO2 ABG HCO3 ABG O2 Saturation ABG Base Excess ABG Hemoglobin Oxyhemoglobin Sodium Potassium Chloride Carbon Dioxide BUN 79 H Creatinine 6.4 H Glucose POC Glucose Lactic Acid Calcium 6.1 L D Ionized Calcium Phosphorus Magnesium Iron TIBC Ferritin Total Bilirubin Direct Bilirubin AST ALT Alkaline Phosphatase Total Creatine Kinase CK-MB (CK-2) Troponin T C-Reactive Protein Total Protein Albumin Triglycerides LDL Cholesterol Direct HDL Cholesterol Free T4 PTH Intact Urine WBC (Auto) Urine Creatinine Salicylates Acetaminophen Crossmatch 03/30/19 03/30/19 03/30/19 08:45 12:09 22:43 WBC 14.3 H RBC 2.33 L Hgb 7.0 L 7.4 L Hct 21.0 L 22.3 L MCV MCHC RDW 15.6 H Plt Count 135 L Lymph % (Auto) [place] % (Auto) Lymph # [place] # Seg Neutrophils % Seg Neuts % (Manual) Lymphocytes % (Manual) Monocytes % (Manual) Nucleated RBC % Seg Neutrophils # Seg Neutrophils # Man Lymphocytes # (Manual) Monocytes # (Manual) PT INR D-Dimer Heparin Anti-Xa Level POC ABG pH ABG pH POC ABG pCO2 POC ABG pO2 ABG pO2 ABG HCO3 ABG O2 Saturation ABG Base Excess ABG Hemoglobin Oxyhemoglobin Sodium Potassium Chloride Carbon Dioxide BUN Creatinine Glucose POC Glucose Lactic Acid Calcium Ionized Calcium 3.7 L Phosphorus Magnesium Iron TIBC Ferritin Total Bilirubin Direct Bilirubin AST ALT Alkaline Phosphatase Total Creatine Kinase CK-MB (CK-2) Troponin T C-Reactive Protein Total Protein Albumin Triglycerides LDL Cholesterol Direct HDL Cholesterol Free T4 PTH Intact Urine WBC (Auto) Urine Creatinine Salicylates Acetaminophen Crossmatch 03/30/19 03/30/19 03/31/19 23:38 Unknown 04:44 WBC 11.5 H RBC 2.40 L Hgb 7.3 L Hct 21.9 L MCV MCHC RDW 15.4 H Plt Count Lymph % (Auto) 10.6 L [place] % (Auto) Lymph # [place] # Seg Neutrophils % 81.7 H Seg Neuts % (Manual) Lymphocytes % (Manual) Monocytes % (Manual) Nucleated RBC % Seg Neutrophils # 9.4 H Seg Neutrophils # Man Lymphocytes # (Manual) Monocytes # (Manual) PT INR D-Dimer Heparin Anti-Xa Level POC ABG pH ABG pH POC ABG pCO2 POC ABG pO2 ABG pO2 ABG HCO3 ABG O2 Saturation ABG Base Excess ABG Hemoglobin Oxyhemoglobin Sodium Potassium Chloride Carbon Dioxide BUN Creatinine Glucose POC Glucose 155 H Lactic Acid Calcium Ionized Calcium Phosphorus Magnesium Iron TIBC Ferritin Total Bilirubin Direct Bilirubin 0.4 H AST 63 H ALT Alkaline Phosphatase Total Creatine Kinase CK-MB (CK-2) Troponin T C-Reactive Protein Total Protein 4.9 L Albumin 2.2 L Triglycerides LDL Cholesterol Direct HDL Cholesterol Free T4 PTH Intact Urine WBC (Auto) Urine Creatinine Salicylates Acetaminophen Crossmatch 03/31/19 03/31/19 03/31/19 04:44 05:44 08:20 WBC RBC Hgb Hct MCV MCHC RDW Plt Count Lymph % (Auto) [place] % (Auto) Lymph # [place] # Seg Neutrophils % Seg Neuts % (Manual) Lymphocytes % (Manual) Monocytes % (Manual) Nucleated RBC % Seg Neutrophils # Seg Neutrophils # Man Lymphocytes # (Manual) Monocytes # (Manual) PT INR D-Dimer Heparin Anti-Xa Level POC ABG pH ABG pH POC ABG pCO2 53.5 H POC ABG pO2 62 L ABG pO2 ABG HCO3 ABG O2 Saturation ABG Base Excess ABG Hemoglobin Oxyhemoglobin Sodium 135 L Potassium Chloride 96.7 L Carbon Dioxide 19 L BUN 94 H Creatinine 7.8 H Glucose POC Glucose Lactic Acid Calcium 5.3 L* Ionized Calcium Phosphorus 8.20 H Magnesium Iron TIBC Ferritin Total Bilirubin Direct Bilirubin 0.4 H AST 60 H ALT Alkaline Phosphatase Total Creatine Kinase CK-MB (CK-2) Troponin T C-Reactive Protein Total Protein 4.8 L Albumin 2.1 L Triglycerides LDL Cholesterol Direct HDL Cholesterol Free T4 PTH Intact Urine WBC (Auto) Urine Creatinine Salicylates Acetaminophen Crossmatch 03/31/19 04/01/19 04/01/19 22:14 04:27 04:27 WBC RBC 2.60 L Hgb 8.0 L Hct 24.1 L MCV MCHC RDW 15.7 H Plt Count Lymph % (Auto) 7.9 L [place] % (Auto) Lymph # 0.7 L [place] # Seg Neutrophils % 83.6 H Seg Neuts % (Manual) Lymphocytes % (Manual) Monocytes % (Manual) Nucleated RBC % Seg Neutrophils # Seg Neutrophils # Man Lymphocytes # (Manual) Monocytes # (Manual) PT INR D-Dimer Heparin Anti-Xa Level POC ABG pH 7.286 L ABG pH POC ABG pCO2 54.7 H POC ABG pO2 179 H ABG pO2 ABG HCO3 ABG O2 Saturation ABG Base Excess ABG Hemoglobin Oxyhemoglobin Sodium Potassium Chloride Carbon Dioxide BUN 68 H Creatinine 6.6 H Glucose POC Glucose Lactic Acid Calcium 6.5 L D Ionized Calcium Phosphorus 7.30 H Magnesium Iron TIBC Ferritin Total Bilirubin Direct Bilirubin AST ALT Alkaline Phosphatase Total Creatine Kinase 1652 H CK-MB (CK-2) Troponin T C-Reactive Protein Total Protein Albumin Triglycerides LDL Cholesterol Direct HDL Cholesterol Free T4 PTH Intact Urine WBC (Auto) Urine Creatinine Salicylates Acetaminophen Crossmatch 04/01/19 04/01/19 04/01/19 05:14 05:37 18:37 WBC RBC Hgb Hct MCV MCHC RDW Plt Count Lymph % (Auto) [place] % (Auto) Lymph # [place] # Seg Neutrophils % Seg Neuts % (Manual) Lymphocytes % (Manual) Monocytes % (Manual) Nucleated RBC % Seg Neutrophils # Seg Neutrophils # Man Lymphocytes # (Manual) Monocytes # (Manual) PT INR D-Dimer Heparin Anti-Xa Level POC ABG pH 7.283 L ABG pH POC ABG pCO2 53.4 H POC ABG pO2 241 H ABG pO2 ABG HCO3 ABG O2 Saturation ABG Base Excess ABG Hemoglobin Oxyhemoglobin Sodium Potassium Chloride Carbon Dioxide BUN Creatinine Glucose POC Glucose 111 H 119 H Lactic Acid Calcium Ionized Calcium Phosphorus Magnesium Iron TIBC Ferritin Total Bilirubin Direct Bilirubin AST ALT Alkaline Phosphatase Total Creatine Kinase CK-MB (CK-2) Troponin T C-Reactive Protein Total Protein Albumin Triglycerides LDL Cholesterol Direct HDL Cholesterol Free T4 PTH Intact Urine WBC (Auto) Urine Creatinine Salicylates Acetaminophen Crossmatch 04/01/19 04/02/19 04/02/19 21:28 04:40 05:03 WBC RBC 2.36 L Hgb 7.2 L Hct 21.9 L MCV MCHC RDW 16.0 H Plt Count Lymph % (Auto) 10.8 L [place] % (Auto) Lymph # 0.8 L [place] # Seg Neutrophils % 80.3 H Seg Neuts % (Manual) Lymphocytes % (Manual) Monocytes % (Manual) Nucleated RBC % Seg Neutrophils # Seg Neutrophils # Man Lymphocytes # (Manual) Monocytes # (Manual) PT INR D-Dimer Heparin Anti-Xa Level POC ABG pH 7.299 L 7.300 L ABG pH POC ABG pCO2 48.2 H 45.2 H POC ABG pO2 133 H 107 H ABG pO2 ABG HCO3 ABG O2 Saturation ABG Base Excess ABG Hemoglobin Oxyhemoglobin Sodium Potassium Chloride Carbon Dioxide BUN Creatinine Glucose POC Glucose Lactic Acid Calcium Ionized Calcium Phosphorus Magnesium Iron TIBC Ferritin Total Bilirubin Direct Bilirubin AST ALT Alkaline Phosphatase Total Creatine Kinase CK-MB (CK-2) Troponin T C-Reactive Protein Total Protein Albumin Triglycerides LDL Cholesterol Direct HDL Cholesterol Free T4 PTH Intact Urine WBC (Auto) Urine Creatinine Salicylates Acetaminophen Crossmatch 04/02/19 04/02/19 04/02/19 05:03 05:03 12:15 WBC RBC Hgb 7.4 L Hct 22.6 L MCV MCHC RDW Plt Count Lymph % (Auto) [place] % (Auto) Lymph # [place] # Seg Neutrophils % Seg Neuts % (Manual) Lymphocytes % (Manual) Monocytes % (Manual) Nucleated RBC % Seg Neutrophils # Seg Neutrophils # Man Lymphocytes # (Manual) Monocytes # (Manual) PT INR D-Dimer Heparin Anti-Xa Level POC ABG pH ABG pH POC ABG pCO2 POC ABG pO2 ABG pO2 ABG HCO3 ABG O2 Saturation ABG Base Excess ABG Hemoglobin Oxyhemoglobin Sodium 136 L Potassium Chloride 97.8 L Carbon Dioxide 18 L BUN 82 H Creatinine 8.2 H Glucose POC Glucose Lactic Acid Calcium 6.7 L Ionized Calcium Phosphorus 7.50 H Magnesium Iron 26 L TIBC 138 L Ferritin 607.0 H Total Bilirubin Direct Bilirubin AST ALT Alkaline Phosphatase Total Creatine Kinase CK-MB (CK-2) Troponin T C-Reactive Protein Total Protein Albumin Triglycerides LDL Cholesterol Direct HDL Cholesterol Free T4 PTH Intact Urine WBC (Auto) Urine Creatinine Salicylates Acetaminophen Crossmatch 04/02/19 04/02/19 04/03/19 16:34 17:14 04:18 WBC RBC Hgb Hct MCV MCHC RDW Plt Count Lymph % (Auto) [place] % (Auto) Lymph # [place] # Seg Neutrophils % Seg Neuts % (Manual) Lymphocytes % (Manual) Monocytes % (Manual) Nucleated RBC % Seg Neutrophils # Seg Neutrophils # Man Lymphocytes # (Manual) Monocytes # (Manual) PT INR D-Dimer Heparin Anti-Xa Level POC ABG pH ABG pH POC ABG pCO2 POC ABG pO2 146 H ABG pO2 ABG HCO3 ABG O2 Saturation ABG Base Excess ABG Hemoglobin Oxyhemoglobin Sodium Potassium Chloride Carbon Dioxide BUN Creatinine Glucose POC Glucose 108 H Lactic Acid Calcium Ionized Calcium Phosphorus Magnesium Iron TIBC Ferritin Total Bilirubin Direct Bilirubin AST ALT Alkaline Phosphatase Total Creatine Kinase CK-MB (CK-2) Troponin T C-Reactive Protein Total Protein Albumin Triglycerides LDL Cholesterol Direct HDL Cholesterol Free T4 PTH Intact Urine WBC (Auto) Urine Creatinine Salicylates Acetaminophen Crossmatch See Detail 04/03/19 04/03/19 04/03/19 04:25 08:30 18:24 WBC RBC 2.40 L Hgb 7.3 L Hct 21.9 L MCV MCHC RDW Plt Count Lymph % (Auto) [place] % (Auto) 7.7 H Lymph # 0.9 L [place] # Seg Neutrophils % 74.6 H Seg Neuts % (Manual) Lymphocytes % (Manual) Monocytes % (Manual) Nucleated RBC % Seg Neutrophils # Seg Neutrophils # Man Lymphocytes # (Manual) Monocytes # (Manual) PT INR D-Dimer Heparin Anti-Xa Level POC ABG pH ABG pH POC ABG pCO2 POC ABG pO2 ABG pO2 ABG HCO3 ABG O2 Saturation ABG Base Excess ABG Hemoglobin Oxyhemoglobin Sodium 136 L Potassium Chloride 97.0 L Carbon Dioxide BUN 58 H Creatinine 7.3 H Glucose POC Glucose 106 H Lactic Acid Calcium 7.5 L Ionized Calcium Phosphorus 5.80 H D Magnesium Iron TIBC Ferritin Total Bilirubin Direct Bilirubin AST ALT Alkaline Phosphatase Total Creatine Kinase CK-MB (CK-2) Troponin T C-Reactive Protein Total Protein Albumin Triglycerides LDL Cholesterol Direct HDL Cholesterol Free T4 PTH Intact Urine WBC (Auto) Urine Creatinine Salicylates Acetaminophen Crossmatch 04/03/19 04/04/19 04/04/19 23:43 04:47 04:47 WBC RBC 2.72 L Hgb 8.3 L Hct 24.7 L MCV MCHC RDW 15.6 H Plt Count Lymph % (Auto) [place] % (Auto) 10.1 H Lymph # 0.8 L [place] # Seg Neutrophils % 71.4 H Seg Neuts % (Manual) Lymphocytes % (Manual) Monocytes % (Manual) Nucleated RBC % Seg Neutrophils # Seg Neutrophils # Man Lymphocytes # (Manual) Monocytes # (Manual) PT INR D-Dimer Heparin Anti-Xa Level POC ABG pH ABG pH POC ABG pCO2 POC ABG pO2 ABG pO2 123.8 H ABG HCO3 ABG O2 Saturation ABG Base Excess -3.0 L ABG Hemoglobin 7.9 L Oxyhemoglobin Sodium 134 L Potassium Chloride 97.9 L Carbon Dioxide BUN 64 H Creatinine 8.1 H Glucose POC Glucose Lactic Acid Calcium 7.2 L Ionized Calcium Phosphorus Magnesium Iron TIBC Ferritin Total Bilirubin Direct Bilirubin AST ALT Alkaline Phosphatase Total Creatine Kinase CK-MB (CK-2) Troponin T C-Reactive Protein Total Protein Albumin Triglycerides LDL Cholesterol Direct HDL Cholesterol Free T4 PTH Intact Urine WBC (Auto) Urine Creatinine Salicylates Acetaminophen Crossmatch 04/04/19 04/04/19 04/04/19 06:07 13:40 18:18 WBC RBC Hgb Hct MCV MCHC RDW Plt Count Lymph % (Auto) [place] % (Auto) Lymph # [place] # Seg Neutrophils % Seg Neuts % (Manual) Lymphocytes % (Manual) Monocytes % (Manual) Nucleated RBC % Seg Neutrophils # Seg Neutrophils # Man Lymphocytes # (Manual) Monocytes # (Manual) PT INR D-Dimer Heparin Anti-Xa Level POC ABG pH ABG pH POC ABG pCO2 POC ABG pO2 ABG pO2 95.9 H ABG HCO3 ABG O2 Saturation ABG Base Excess -3.0 L ABG Hemoglobin 8.5 L Oxyhemoglobin Sodium Potassium Chloride Carbon Dioxide BUN Creatinine Glucose POC Glucose 107 H 107 H Lactic Acid Calcium Ionized Calcium Phosphorus Magnesium Iron TIBC Ferritin Total Bilirubin Direct Bilirubin AST ALT Alkaline Phosphatase Total Creatine Kinase CK-MB (CK-2) Troponin T C-Reactive Protein Total Protein Albumin Triglycerides LDL Cholesterol Direct HDL Cholesterol Free T4 PTH Intact Urine WBC (Auto) Urine Creatinine Salicylates Acetaminophen Crossmatch 04/04/19 04/05/19 04/05/19 21:22 04:09 04:09 WBC RBC 2.76 L Hgb 8.4 L Hct 25.4 L MCV MCHC RDW 15.8 H Plt Count 133 L Lymph % (Auto) [place] % (Auto) 9.6 H Lymph # 0.7 L [place] # Seg Neutrophils % 72.6 H Seg Neuts % (Manual) Lymphocytes % (Manual) Monocytes % (Manual) Nucleated RBC % Seg Neutrophils # Seg Neutrophils # Man Lymphocytes # (Manual) Monocytes # (Manual) PT INR D-Dimer Heparin Anti-Xa Level POC ABG pH ABG pH POC ABG pCO2 47.2 H POC ABG pO2 137 H ABG pO2 ABG HCO3 ABG O2 Saturation ABG Base Excess ABG Hemoglobin Oxyhemoglobin Sodium 136 L Potassium Chloride Carbon Dioxide BUN 46 H Creatinine 6.7 H Glucose POC Glucose Lactic Acid Calcium 7.7 L Ionized Calcium Phosphorus Magnesium Iron TIBC Ferritin Total Bilirubin Direct Bilirubin AST ALT Alkaline Phosphatase Total Creatine Kinase CK-MB (CK-2) Troponin T C-Reactive Protein Total Protein Albumin Triglycerides LDL Cholesterol Direct HDL Cholesterol Free T4 PTH Intact Urine WBC (Auto) Urine Creatinine Salicylates Acetaminophen Crossmatch 04/05/19 04/05/19 04/05/19 05:28 06:14 16:50 WBC RBC Hgb Hct MCV MCHC RDW Plt Count Lymph % (Auto) [place] % (Auto) Lymph # [place] # Seg Neutrophils % Seg Neuts % (Manual) Lymphocytes % (Manual) Monocytes % (Manual) Nucleated RBC % Seg Neutrophils # Seg Neutrophils # Man Lymphocytes # (Manual) Monocytes # (Manual) PT INR D-Dimer Heparin Anti-Xa Level POC ABG pH ABG pH POC ABG pCO2 POC ABG pO2 67 L ABG pO2 ABG HCO3 ABG O2 Saturation ABG Base Excess ABG Hemoglobin Oxyhemoglobin Sodium Potassium Chloride Carbon Dioxide BUN Creatinine Glucose POC Glucose 108 H Lactic Acid Calcium Ionized Calcium Phosphorus Magnesium Iron TIBC Ferritin Total Bilirubin Direct Bilirubin AST ALT Alkaline Phosphatase Total Creatine Kinase CK-MB (CK-2) Troponin T C-Reactive Protein Total Protein Albumin Triglycerides LDL Cholesterol Direct HDL Cholesterol Free T4 PTH Intact Urine WBC (Auto) 40.0 H Urine Creatinine Salicylates Acetaminophen Crossmatch 04/05/19 04/06/19 04/06/19 17:22 00:13 04:44 WBC RBC 2.48 L Hgb 7.5 L Hct 22.9 L MCV MCHC RDW 16.0 H Plt Count 107 L Lymph % (Auto) [place] % (Auto) 10.7 H Lymph # 1.0 L [place] # Seg Neutrophils % Seg Neuts % (Manual) Lymphocytes % (Manual) Monocytes % (Manual) Nucleated RBC % Seg Neutrophils # Seg Neutrophils # Man Lymphocytes # (Manual) Monocytes # (Manual) PT INR D-Dimer Heparin Anti-Xa Level POC ABG pH ABG pH POC ABG pCO2 POC ABG pO2 ABG pO2 ABG HCO3 ABG O2 Saturation ABG Base Excess ABG Hemoglobin Oxyhemoglobin Sodium Potassium Chloride Carbon Dioxide BUN Creatinine Glucose POC Glucose 118 H 138 H Lactic Acid Calcium Ionized Calcium Phosphorus Magnesium Iron TIBC Ferritin Total Bilirubin Direct Bilirubin AST ALT Alkaline Phosphatase Total Creatine Kinase CK-MB (CK-2) Troponin T C-Reactive Protein Total Protein Albumin Triglycerides LDL Cholesterol Direct HDL Cholesterol Free T4 PTH Intact Urine WBC (Auto) Urine Creatinine Salicylates Acetaminophen Crossmatch 04/06/19 04/06/19 04/06/19 04:44 05:20 05:23 WBC RBC Hgb Hct MCV MCHC RDW Plt Count Lymph % (Auto) [place] % (Auto) Lymph # [place] # Seg Neutrophils % Seg Neuts % (Manual) Lymphocytes % (Manual) Monocytes % (Manual) Nucleated RBC % Seg Neutrophils # Seg Neutrophils # Man Lymphocytes # (Manual) Monocytes # (Manual) PT INR D-Dimer Heparin Anti-Xa Level POC ABG pH ABG pH POC ABG pCO2 POC ABG pO2 ABG pO2 104.0 H ABG HCO3 ABG O2 Saturation ABG Base Excess -2.1 L ABG Hemoglobin 7.3 L Oxyhemoglobin Sodium Potassium Chloride Carbon Dioxide BUN 64 H Creatinine 8.2 H Glucose 103 H POC Glucose 118 H Lactic Acid Calcium 7.3 L Ionized Calcium Phosphorus Magnesium Iron TIBC Ferritin Total Bilirubin Direct Bilirubin AST ALT Alkaline Phosphatase Total Creatine Kinase CK-MB (CK-2) Troponin T C-Reactive Protein Total Protein Albumin Triglycerides LDL Cholesterol Direct HDL Cholesterol Free T4 PTH Intact Urine WBC (Auto) Urine Creatinine Salicylates Acetaminophen Crossmatch 04/06/19 04/07/19 04/07/19 12:02 05:40 05:40 WBC RBC 2.59 L Hgb 7.9 L Hct 23.8 L MCV MCHC RDW 15.8 H Plt Count 89 L Lymph % (Auto) [place] % (Auto) 10.3 H Lymph # 1.1 L [place] # Seg Neutrophils % Seg Neuts % (Manual) Lymphocytes % (Manual) Monocytes % (Manual) Nucleated RBC % Seg Neutrophils # Seg Neutrophils # Man Lymphocytes # (Manual) Monocytes # (Manual) PT INR D-Dimer Heparin Anti-Xa Level POC ABG pH ABG pH POC ABG pCO2 POC ABG pO2 ABG pO2 ABG HCO3 ABG O2 Saturation ABG Base Excess ABG Hemoglobin Oxyhemoglobin Sodium 136 L Potassium 3.5 L Chloride Carbon Dioxide BUN 46 H Creatinine 6.2 H Glucose POC Glucose 108 H Lactic Acid Calcium 7.9 L Ionized Calcium Phosphorus Magnesium Iron TIBC Ferritin Total Bilirubin Direct Bilirubin AST ALT Alkaline Phosphatase Total Creatine Kinase CK-MB (CK-2) Troponin T C-Reactive Protein Total Protein Albumin Triglycerides LDL Cholesterol Direct HDL Cholesterol Free T4 PTH Intact Urine WBC (Auto) Urine Creatinine Salicylates Acetaminophen Crossmatch 04/07/19 04/09/19 04/09/19 12:57 04:28 04:28 WBC RBC 2.85 L Hgb 8.7 L Hct 26.2 L MCV MCHC RDW 15.6 H Plt Count Lymph % (Auto) [place] % (Auto) 10.4 H Lymph # 1.0 L [place] # Seg Neutrophils % 73.3 H Seg Neuts % (Manual) Lymphocytes % (Manual) Monocytes % (Manual) Nucleated RBC % Seg Neutrophils # Seg Neutrophils # Man Lymphocytes # (Manual) Monocytes # (Manual) PT INR D-Dimer Heparin Anti-Xa Level POC ABG pH ABG pH POC ABG pCO2 POC ABG pO2 107 H ABG pO2 ABG HCO3 ABG O2 Saturation ABG Base Excess ABG Hemoglobin Oxyhemoglobin Sodium Potassium 3.5 L Chloride 97.8 L Carbon Dioxide BUN 62 H Creatinine 8.1 H Glucose POC Glucose Lactic Acid Calcium 8.2 L Ionized Calcium Phosphorus 5.10 H Magnesium Iron TIBC Ferritin Total Bilirubin Direct Bilirubin AST ALT Alkaline Phosphatase Total Creatine Kinase CK-MB (CK-2) Troponin T C-Reactive Protein Total Protein Albumin Triglycerides LDL Cholesterol Direct HDL Cholesterol Free T4 PTH Intact Urine WBC (Auto) Urine Creatinine Salicylates Acetaminophen Crossmatch 04/10/19 04/11/19 04/11/19 18:15 00:25 04:16 WBC 11.5 H RBC 2.91 L Hgb 8.9 L Hct 27.6 L MCV 95 H MCHC RDW 17.5 H Plt Count Lymph % (Auto) [place] % (Auto) Lymph # [place] # Seg Neutrophils % Seg Neuts % (Manual) 71.0 H Lymphocytes % (Manual) Monocytes % (Manual) 8.0 H Nucleated RBC % Seg Neutrophils # Seg Neutrophils # Man 8.2 H Lymphocytes # (Manual) Monocytes # (Manual) 0.9 H PT INR D-Dimer Heparin Anti-Xa Level POC ABG pH ABG pH POC ABG pCO2 POC ABG pO2 ABG pO2 ABG HCO3 ABG O2 Saturation ABG Base Excess ABG Hemoglobin Oxyhemoglobin Sodium Potassium Chloride Carbon Dioxide BUN Creatinine Glucose POC Glucose 109 H 114 H Lactic Acid Calcium Ionized Calcium Phosphorus Magnesium Iron TIBC Ferritin Total Bilirubin Direct Bilirubin AST ALT Alkaline Phosphatase Total Creatine Kinase CK-MB (CK-2) Troponin T C-Reactive Protein Total Protein Albumin Triglycerides LDL Cholesterol Direct HDL Cholesterol Free T4 PTH Intact Urine WBC (Auto) Urine Creatinine Salicylates Acetaminophen Crossmatch 04/11/19 04/11/19 04/11/19 06:47 09:21 12:15 WBC RBC Hgb Hct MCV MCHC RDW Plt Count Lymph % (Auto) [place] % (Auto) Lymph # [place] # Seg Neutrophils % Seg Neuts % (Manual) Lymphocytes % (Manual) Monocytes % (Manual) Nucleated RBC % Seg Neutrophils # Seg Neutrophils # Man Lymphocytes # (Manual) Monocytes # (Manual) PT INR D-Dimer Heparin Anti-Xa Level POC ABG pH ABG pH POC ABG pCO2 POC ABG pO2 ABG pO2 ABG HCO3 ABG O2 Saturation ABG Base Excess ABG Hemoglobin Oxyhemoglobin Sodium Potassium 3.5 L Chloride Carbon Dioxide BUN 45 H Creatinine 6.0 H Glucose 113 H POC Glucose 106 H 109 H Lactic Acid Calcium Ionized Calcium Phosphorus Magnesium Iron TIBC Ferritin Total Bilirubin Direct Bilirubin AST ALT Alkaline Phosphatase Total Creatine Kinase CK-MB (CK-2) Troponin T C-Reactive Protein Total Protein Albumin Triglycerides LDL Cholesterol Direct HDL Cholesterol Free T4 PTH Intact Urine WBC (Auto) Urine Creatinine Salicylates Acetaminophen Crossmatch 04/11/19 04/12/19 04/12/19 18:42 12:13 23:52 WBC RBC Hgb Hct MCV MCHC RDW Plt Count Lymph % (Auto) [place] % (Auto) Lymph # [place] # Seg Neutrophils % Seg Neuts % (Manual) Lymphocytes % (Manual) Monocytes % (Manual) Nucleated RBC % Seg Neutrophils # Seg Neutrophils # Man Lymphocytes # (Manual) Monocytes # (Manual) PT INR D-Dimer Heparin Anti-Xa Level POC ABG pH ABG pH POC ABG pCO2 POC ABG pO2 ABG pO2 ABG HCO3 ABG O2 Saturation ABG Base Excess ABG Hemoglobin Oxyhemoglobin Sodium Potassium Chloride Carbon Dioxide BUN Creatinine Glucose POC Glucose 107 H 115 H 124 H Lactic Acid Calcium Ionized Calcium Phosphorus Magnesium Iron TIBC Ferritin Total Bilirubin Direct Bilirubin AST ALT Alkaline Phosphatase Total Creatine Kinase CK-MB (CK-2) Troponin T C-Reactive Protein Total Protein Albumin Triglycerides LDL Cholesterol Direct HDL Cholesterol Free T4 PTH Intact Urine WBC (Auto) Urine Creatinine Salicylates Acetaminophen Crossmatch 04/13/19 04/13/19 04/13/19 05:00 05:00 05:47 WBC 11.7 H RBC 2.97 L Hgb 8.8 L Hct 27.3 L MCV MCHC RDW 16.1 H Plt Count Lymph % (Auto) 9.5 L [place] % (Auto) 9.9 H Lymph # 1.1 L [place] # 1.2 H Seg Neutrophils % 78.6 H Seg Neuts % (Manual) Lymphocytes % (Manual) Monocytes % (Manual) Nucleated RBC % Seg Neutrophils # 9.2 H Seg Neutrophils # Man Lymphocytes # (Manual) Monocytes # (Manual) PT INR D-Dimer Heparin Anti-Xa Level POC ABG pH ABG pH POC ABG pCO2 POC ABG pO2 ABG pO2 ABG HCO3 ABG O2 Saturation ABG Base Excess ABG Hemoglobin Oxyhemoglobin Sodium Potassium 3.5 L Chloride Carbon Dioxide BUN 42 H Creatinine 4.6 H Glucose 106 H POC Glucose 107 H Lactic Acid Calcium 10.6 H D Ionized Calcium Phosphorus 5.90 H Magnesium Iron TIBC Ferritin Total Bilirubin Direct Bilirubin AST ALT Alkaline Phosphatase Total Creatine Kinase CK-MB (CK-2) Troponin T C-Reactive Protein Total Protein 5.8 L Albumin 2.5 L Triglycerides LDL Cholesterol Direct HDL Cholesterol Free T4 PTH Intact Urine WBC (Auto) Urine Creatinine Salicylates Acetaminophen Crossmatch 04/13/19 04/14/19 04/14/19 17:32 00:00 03:55 WBC RBC Hgb Hct MCV MCHC RDW Plt Count Lymph % (Auto) [place] % (Auto) Lymph # [place] # Seg Neutrophils % Seg Neuts % (Manual) Lymphocytes % (Manual) Monocytes % (Manual) Nucleated RBC % Seg Neutrophils # Seg Neutrophils # Man Lymphocytes # (Manual) Monocytes # (Manual) PT INR D-Dimer Heparin Anti-Xa Level POC ABG pH ABG pH POC ABG pCO2 POC ABG pO2 ABG pO2 ABG HCO3 ABG O2 Saturation ABG Base Excess ABG Hemoglobin Oxyhemoglobin Sodium Potassium 3.0 L Chloride Carbon Dioxide BUN 30 H Creatinine 3.1 H Glucose POC Glucose 112 H 120 H Lactic Acid Calcium 10.8 H Ionized Calcium Phosphorus Magnesium Iron TIBC Ferritin Total Bilirubin Direct Bilirubin AST ALT Alkaline Phosphatase Total Creatine Kinase CK-MB (CK-2) Troponin T C-Reactive Protein Total Protein Albumin Triglycerides LDL Cholesterol Direct HDL Cholesterol Free T4 PTH Intact Urine WBC (Auto) Urine Creatinine Salicylates Acetaminophen Crossmatch 04/14/19 04/14/19 04/15/19 11:56 23:28 05:11 WBC 13.0 H RBC 2.93 L Hgb 8.6 L Hct 26.5 L MCV MCHC RDW 16.5 H Plt Count Lymph % (Auto) 12.2 L [place] % (Auto) 9.1 H Lymph # [place] # 1.2 H Seg Neutrophils % 77.6 H Seg Neuts % (Manual) Lymphocytes % (Manual) Monocytes % (Manual) Nucleated RBC % Seg Neutrophils # 10.1 H Seg Neutrophils # Man Lymphocytes # (Manual) Monocytes # (Manual) PT INR D-Dimer Heparin Anti-Xa Level POC ABG pH ABG pH POC ABG pCO2 POC ABG pO2 ABG pO2 ABG HCO3 ABG O2 Saturation ABG Base Excess ABG Hemoglobin Oxyhemoglobin Sodium Potassium Chloride Carbon Dioxide BUN Creatinine Glucose POC Glucose 109 H 112 H Lactic Acid Calcium Ionized Calcium Phosphorus Magnesium Iron TIBC Ferritin Total Bilirubin Direct Bilirubin AST ALT Alkaline Phosphatase Total Creatine Kinase CK-MB (CK-2) Troponin T C-Reactive Protein Total Protein Albumin Triglycerides LDL Cholesterol Direct HDL Cholesterol Free T4 PTH Intact Urine WBC (Auto) Urine Creatinine Salicylates Acetaminophen Crossmatch 04/15/19 04/15/19 04/15/19 05:11 05:31 18:03 WBC RBC Hgb Hct MCV MCHC RDW Plt Count Lymph % (Auto) [place] % (Auto) Lymph # [place] # Seg Neutrophils % Seg Neuts % (Manual) Lymphocytes % (Manual) Monocytes % (Manual) Nucleated RBC % Seg Neutrophils # Seg Neutrophils # Man Lymphocytes # (Manual) Monocytes # (Manual) PT INR D-Dimer Heparin Anti-Xa Level POC ABG pH ABG pH POC ABG pCO2 POC ABG pO2 ABG pO2 ABG HCO3 ABG O2 Saturation ABG Base Excess ABG Hemoglobin Oxyhemoglobin Sodium Potassium 3.2 L Chloride Carbon Dioxide BUN 44 H Creatinine 3.6 H Glucose 106 H POC Glucose 110 H 121 H Lactic Acid Calcium 12.0 H Ionized Calcium Phosphorus 5.00 H Magnesium Iron TIBC Ferritin Total Bilirubin Direct Bilirubin AST ALT Alkaline Phosphatase Total Creatine Kinase CK-MB (CK-2) Troponin T C-Reactive Protein Total Protein Albumin Triglycerides LDL Cholesterol Direct HDL Cholesterol Free T4 PTH Intact Urine WBC (Auto) Urine Creatinine Salicylates Acetaminophen Crossmatch 04/16/19 04/16/19 04/17/19 05:07 05:07 04:15 WBC 12.6 H RBC 3.12 L Hgb 9.0 L Hct 28.2 L MCV MCHC RDW 16.6 H Plt Count Lymph % (Auto) 10.3 L [place] % (Auto) 9.8 H Lymph # [place] # 1.2 H Seg Neutrophils % 78.2 H Seg Neuts % (Manual) Lymphocytes % (Manual) Monocytes % (Manual) Nucleated RBC % Seg Neutrophils # 9.9 H Seg Neutrophils # Man Lymphocytes # (Manual) Monocytes # (Manual) PT INR D-Dimer Heparin Anti-Xa Level POC ABG pH ABG pH POC ABG pCO2 POC ABG pO2 ABG pO2 ABG HCO3 ABG O2 Saturation ABG Base Excess ABG Hemoglobin Oxyhemoglobin Sodium 147 H 150 H Potassium 3.5 L 3.1 L Chloride Carbon Dioxide 32 H BUN 54 H 65 H Creatinine 3.8 H 4.0 H Glucose 102 H 107 H POC Glucose Lactic Acid Calcium 11.7 H 12.0 H Ionized Calcium Phosphorus 5.40 H Magnesium Iron TIBC Ferritin Total Bilirubin Direct Bilirubin AST ALT Alkaline Phosphatase Total Creatine Kinase CK-MB (CK-2) Troponin T C-Reactive Protein 7.10 H Total Protein Albumin Triglycerides LDL Cholesterol Direct HDL Cholesterol Free T4 PTH Intact Urine WBC (Auto) Urine Creatinine Salicylates Acetaminophen Crossmatch 04/17/19 04/17/19 04/17/19 04:15 06:05 12:49 WBC 15.8 H RBC 3.32 L Hgb 9.5 L Hct 29.9 L MCV MCHC RDW 16.9 H Plt Count Lymph % (Auto) 12.6 L [place] % (Auto) 11.1 H Lymph # [place] # 1.7 H Seg Neutrophils % 74.7 H Seg Neuts % (Manual) Lymphocytes % (Manual) Monocytes % (Manual) Nucleated RBC % Seg Neutrophils # 11.8 H Seg Neutrophils # Man Lymphocytes # (Manual) Monocytes # (Manual) PT INR D-Dimer Heparin Anti-Xa Level POC ABG pH ABG pH POC ABG pCO2 POC ABG pO2 ABG pO2 ABG HCO3 ABG O2 Saturation ABG Base Excess ABG Hemoglobin Oxyhemoglobin Sodium Potassium Chloride Carbon Dioxide BUN Creatinine Glucose POC Glucose 111 H 108 H Lactic Acid Calcium Ionized Calcium Phosphorus Magnesium Iron TIBC Ferritin Total Bilirubin Direct Bilirubin AST ALT Alkaline Phosphatase Total Creatine Kinase CK-MB (CK-2) Troponin T C-Reactive Protein Total Protein Albumin Triglycerides LDL Cholesterol Direct HDL Cholesterol Free T4 PTH Intact Urine WBC (Auto) Urine Creatinine Salicylates Acetaminophen Crossmatch 04/18/19 04/18/19 04/18/19 00:23 04:41 04:41 WBC 19.4 H RBC 3.03 L Hgb 8.6 L Hct 27.5 L MCV MCHC 31 L RDW 16.9 H Plt Count Lymph % (Auto) [place] % (Auto) Lymph # [place] # Seg Neutrophils % Seg Neuts % (Manual) Lymphocytes % (Manual) Monocytes % (Manual) Nucleated RBC % Seg Neutrophils # Seg Neutrophils # Man Lymphocytes # (Manual) Monocytes # (Manual) PT INR D-Dimer Heparin Anti-Xa Level POC ABG pH ABG pH POC ABG pCO2 POC ABG pO2 ABG pO2 ABG HCO3 ABG O2 Saturation ABG Base Excess ABG Hemoglobin Oxyhemoglobin Sodium 152 H Potassium 3.0 L Chloride Carbon Dioxide BUN 80 H Creatinine 4.3 H Glucose 103 H POC Glucose 115 H Lactic Acid Calcium 11.4 H Ionized Calcium Phosphorus Magnesium Iron TIBC Ferritin Total Bilirubin Direct Bilirubin AST ALT Alkaline Phosphatase Total Creatine Kinase CK-MB (CK-2) Troponin T C-Reactive Protein Total Protein Albumin Triglycerides LDL Cholesterol Direct HDL Cholesterol Free T4 PTH Intact Urine WBC (Auto) Urine Creatinine Salicylates Acetaminophen Crossmatch 04/18/19 04/18/19 04/18/19 06:17 12:16 18:10 WBC RBC Hgb Hct MCV MCHC RDW Plt Count Lymph % (Auto) [place] % (Auto) Lymph # [place] # Seg Neutrophils % Seg Neuts % (Manual) Lymphocytes % (Manual) Monocytes % (Manual) Nucleated RBC % Seg Neutrophils # Seg Neutrophils # Man Lymphocytes # (Manual) Monocytes # (Manual) PT INR D-Dimer Heparin Anti-Xa Level POC ABG pH ABG pH POC ABG pCO2 POC ABG pO2 ABG pO2 ABG HCO3 ABG O2 Saturation ABG Base Excess ABG Hemoglobin Oxyhemoglobin Sodium Potassium Chloride Carbon Dioxide BUN Creatinine Glucose POC Glucose 124 H 119 H 111 H Lactic Acid Calcium Ionized Calcium Phosphorus Magnesium Iron TIBC Ferritin Total Bilirubin Direct Bilirubin AST ALT Alkaline Phosphatase Total Creatine Kinase CK-MB (CK-2) Troponin T C-Reactive Protein Total Protein Albumin Triglycerides LDL Cholesterol Direct HDL Cholesterol Free T4 PTH Intact Urine WBC (Auto) Urine Creatinine Salicylates Acetaminophen Crossmatch 04/19/19 04/19/19 04/20/19 03:49 05:27 09:09 WBC RBC Hgb Hct MCV MCHC RDW Plt Count Lymph % (Auto) [place] % (Auto) Lymph # [place] # Seg Neutrophils % Seg Neuts % (Manual) Lymphocytes % (Manual) Monocytes % (Manual) Nucleated RBC % Seg Neutrophils # Seg Neutrophils # Man Lymphocytes # (Manual) Monocytes # (Manual) PT INR D-Dimer Heparin Anti-Xa Level POC ABG pH ABG pH POC ABG pCO2 POC ABG pO2 ABG pO2 ABG HCO3 ABG O2 Saturation ABG Base Excess ABG Hemoglobin Oxyhemoglobin Sodium 147 H 150 H Potassium 3.3 L Chloride 108.9 H Carbon Dioxide BUN 45 H 70 H Creatinine 2.9 H 4.1 H Glucose 105 H POC Glucose 124 H Lactic Acid Calcium 10.6 H 11.6 H Ionized Calcium Phosphorus Magnesium Iron TIBC Ferritin Total Bilirubin Direct Bilirubin AST ALT Alkaline Phosphatase Total Creatine Kinase CK-MB (CK-2) Troponin T C-Reactive Protein Total Protein Albumin Triglycerides LDL Cholesterol Direct HDL Cholesterol Free T4 PTH Intact Urine WBC (Auto) Urine Creatinine Salicylates Acetaminophen Crossmatch 04/20/19 04/20/19 04/21/19 12:29 18:45 01:34 WBC RBC Hgb Hct MCV MCHC RDW Plt Count Lymph % (Auto) [place] % (Auto) Lymph # [place] # Seg Neutrophils % Seg Neuts % (Manual) Lymphocytes % (Manual) Monocytes % (Manual) Nucleated RBC % Seg Neutrophils # Seg Neutrophils # Man Lymphocytes # (Manual) Monocytes # (Manual) PT INR D-Dimer Heparin Anti-Xa Level POC ABG pH ABG pH POC ABG pCO2 POC ABG pO2 ABG pO2 ABG HCO3 ABG O2 Saturation ABG Base Excess ABG Hemoglobin Oxyhemoglobin Sodium Potassium Chloride Carbon Dioxide BUN 40 H Creatinine 2.6 H Glucose 104 H POC Glucose 131 H 134 H Lactic Acid Calcium 11.0 H Ionized Calcium Phosphorus Magnesium Iron TIBC Ferritin Total Bilirubin Direct Bilirubin AST ALT Alkaline Phosphatase Total Creatine Kinase CK-MB (CK-2) Troponin T C-Reactive Protein Total Protein Albumin Triglycerides LDL Cholesterol Direct HDL Cholesterol Free T4 PTH Intact Urine WBC (Auto) Urine Creatinine Salicylates Acetaminophen Crossmatch 04/21/19 04:22 WBC 14.2 H RBC 3.02 L Hgb 8.7 L Hct 27.2 L MCV MCHC RDW 16.7 H Plt Count Lymph % (Auto) [place] % (Auto) Lymph # [place] # Seg Neutrophils % Seg Neuts % (Manual) Lymphocytes % (Manual) Monocytes % (Manual) Nucleated RBC % Seg Neutrophils # Seg Neutrophils # Man Lymphocytes # (Manual) Monocytes # (Manual) PT INR D-Dimer Heparin Anti-Xa Level POC ABG pH ABG pH POC ABG pCO2 POC ABG pO2 ABG pO2 ABG HCO3 ABG O2 Saturation ABG Base Excess ABG Hemoglobin Oxyhemoglobin Sodium Potassium Chloride Carbon Dioxide BUN Creatinine Glucose POC Glucose Lactic Acid Calcium Ionized Calcium Phosphorus Magnesium Iron TIBC Ferritin Total Bilirubin Direct Bilirubin AST ALT Alkaline Phosphatase Total Creatine Kinase CK-MB (CK-2) Troponin T C-Reactive Protein Total Protein Albumin Triglycerides LDL Cholesterol Direct HDL Cholesterol Free T4 PTH Intact Urine WBC (Auto) Urine Creatinine Salicylates Acetaminophen Crossmatch Allied health notes reviewed: nursing
--- NOTE | 2019-04-21 15:35 | Hem/Onc Progress Note ---
Assessment and Plan 1. h/o Anemia. The patient has history of bleeding. 2. rt Internal jugular partial thrombosis. The patient was started on heparin. This has been held due to bleeding 3. Gastrointestinal bleed. 4. h/o Elevated creatinine kinase. 5. h/o Low calcium. 6. h/o Thrombocytopenia. 7. h/o Renal failure. 8. h/o Intubation. 9. s/p Transfusion support. 10. Leukocytosis. At this time, supportive care may help the patient. The patient's platelet was low at admission. Urine toxicology was negative. awake h/o rt IJ dvt - off anticoagulation - due to bleeding platelet - > 100 s/p iv iron trial pt was on BIPAP - then o2 support h/o tachycardia - on meds moving arms>legs left arm swelling -dvt study negative for left arm rt IJ dvt is better - Patient Problems (1) DVT (deep venous thrombosis) Current Visit: Yes Status: Acute Subjective Date of service: 04/21/19 Principal diagnosis: anemia - DVT IJ Interval history: no bleeding - has - a fib Objective - Exam Narrative Exam: Pain - none now General appearance - awake Performance status limited self care Eyes - no icterus ENT - extubated LNs cervical not palpable Neck - no LN Respiratory Normal Breath sounds - CTA anteriorly CVS S1 S2 + Extremities edema + General GI Soft Rectal deferred male - deferred Skin warm Musculoskeletal arms>legs Neurologically awake - Constitutional Vitals: Last Vital Signs Temp 99.5 F 04/21/19 12:00 Pulse 139 H 04/21/19 14:54 Resp 19 04/21/19 13:01 BP 199/67 04/21/19 14:54 Pulse Ox 97 04/21/19 13:01 - Labs Lab Results: Laboratory Results - last 24 hr 04/17/19 04/17/19 04/17/19 04:15 04:15 04:15 WBC RBC Hgb Hct MCV MCH MCHC RDW Plt Count Sodium Potassium Chloride Carbon Dioxide Anion Gap BUN Creatinine Estimated GFR BUN/Creatinine Ratio Glucose POC Glucose Calcium LANDY Screen Negative Complement C3 150 Complement C4 37 04/20/19 04/21/19 04/21/19 18:45 00:17 01:34 WBC RBC Hgb Hct MCV MCH MCHC RDW Plt Count Sodium 141 D Potassium 3.7 Chloride 100.4 Carbon Dioxide 29 Anion Gap 15 BUN 40 H Creatinine 2.6 H Estimated GFR 27 BUN/Creatinine Ratio 15 Glucose 104 H POC Glucose 134 H 98 Calcium 11.0 H LANDY Screen Complement C3 Complement C4 04/21/19 04/21/19 04/21/19 04:22 05:50 11:45 WBC 14.2 H RBC 3.02 L Hgb 8.7 L Hct 27.2 L MCV 90 MCH 29 MCHC 32 RDW 16.7 H Plt Count 218 Sodium Potassium Chloride Carbon Dioxide Anion Gap BUN Creatinine Estimated GFR BUN/Creatinine Ratio Glucose POC Glucose 97 87 Calcium [place] Screen Complement C3 Complement C4 Medications & Allergies - Medications Allergies/Adverse Reactions: Allergies No Known Allergies Allergy (Unverified 03/16/19 17:17) Home Medications: Home Medications Medication Instructions Recorded Confirmed Last Taken Type Unobtainable 03/18/19 04/20/19 Unknown History Active Medications: Generic Name Dose Route Start Last Admin Trade Name Freq PRN Reason Stop Dose Admin Acetaminophen 650 mg 04/02/19 23:26 04/20/19 06:41 Tylenol PO 650 mg Q4H PRN Administration Pain, Mild (1-3),temp>100.5 Albuterol 2.5 mg 03/29/19 13:08 Proventil IH Q4HRT PRN Shortness Of Breath Amiodarone HCl 200 mg 04/15/19 22:00 04/21/19 11:28 Cordarone PO 200 mg BID PAOLO Administration Lipase/Protease/Amylase 1 each 04/20/19 13:17 Pancreaze 10,500 Unit FEEDTUBE PRN PRN For Clogged Feeding Tube Bacitracin 1 applic 04/17/19 08:00 Antibiotic Oint TP Q4H PRN upper lip sore/open Dextrose 50 gm 04/17/19 08:00 D50w (25gm) Vial IV Q1H PRN Hypoglycemia Epoetin Jet 20,000 unit 03/31/19 10:15 04/20/19 12:47 Procrit SUB-Q 20,000 unit NEYAMR PRN Administration hemodialysis Hydralazine HCl 20 mg 04/14/19 03:00 04/14/19 03:11 Apresoline IV 20 mg Q4H PRN Administration hypertemsion Hydrophilic Ointment 1 applic 03/16/19 15:50 04/19/19 18:24 Vaseline Lip Therapy TP 1 applic Q2HR PRN Administration Dry Lips Aztreonam 2 gm in 100 mls @ 100 mls/hr 04/17/19 18:00 04/21/19 12:07 Azactam/Ns 2 Gm/100 Ml IV 100 mls/hr Q24HR PAOLO Administration Protocol Linezolid 600 mg in 300 mls @ 300 mls/hr 04/17/19 17:00 04/21/19 05:57 Zyvox 600mg/300ml IV 300 mls/hr Q12H PAOLO Administration Protocol Sodium Chloride 100 mls @ 999 mls/hr 04/20/19 08:41 Nacl 0.9% IV NEYMAR PRN Hypotension Lansoprazole 30 mg 04/11/19 10:00 04/21/19 11:28 Prevacid Solutab FEEDTUBE 30 mg BID PAOLO Administration Metoprolol Tartrate 5 mg 04/16/19 22:24 04/20/19 13:58 Lopressor IV 5 mg Q6H PRN Administration For HR >120 Metoprolol Tartrate 25 mg 04/17/19 20:00 04/21/19 14:54 Lopressor PO 25 mg TID PAOLO Administration Multi-Ingred Cream/Lotion/Oil/Oint 1 applic 03/16/19 15:50 03/19/19 20:10 Artificial Tears Ophth Oint OU 1 applic Q4HR PRN Administration Dry Eye(s) Simple Syrup 15 ml 04/20/19 13:17 Simple Syrup FEEDTUBE PRN PRN Hypoglycemia Simple Syrup 30 ml 04/20/19 13:29 Simple Syrup FEEDTUBE PRN PRN Hypoglycemia Sodium Bicarbonate 325 mg 04/20/19 13:17 Sodium Bicarbonate FEEDTUBE PRN PRN For Clogged Feeding Tube Sodium Hypochlorite 1 applic 04/18/19 11:00 04/21/19 11:28 Dakin's Half Strength TP 1 applicatio BID PAOLO Administration
[2019-04-21] MEDS: ACETAMINOPHEN 325 MG TAB PO PRN (20:29)
[2019-04-22] MEDS: METOPROLOL TARTRATE 5 MG/5 ML INJ IV PRN (00:20)
[2019-04-22 05:16] LABS: Hematocrit 32.1 % (35.5-45.6); Hemoglobin 10.1 gm/dl (11.8-15.2); Mean Corpuscular HGB Conc 32 % (32-34); Mean Corpuscular Volume 90 fl (84-94); Platelet Count 277 K/mm3 (140-440); Red Blood Count 3.57 M/mm3 (3.65-5.03); Red Cell Distribution Width 17.2 % (13.2-15.2)
[2019-04-22 05:28] LABS: Calcium 11.4 mg/dL (8.4-10.2)
[2019-04-22] MEDS: LINEZOLID 600 MG/300 ML BAG IV SCH ×2 (06:02→16:54)
--- NOTE | 2019-04-22 09:35 | Progress Note ---
Assessment and Plan 1. Acute kidney injury: Vasomotor RUBEN in the setting of shock / volume depletion / Rhabdo. Baseline renal function is unknown. CT abdomen was negative for obstructive nephropathy. Patient was started on hemodialysis on 03/18/19 due to worsening metabolic acidosis and hyperkalemia. Monitor renal function. Renal prognosis is guarded. Avoid nephrotoxic agents. Meds dosage based on GFR. Hemodialysis: 03/18, 03/19, 03/20, 03/22, 03/23, 03/24, 03/26, 03/28, 03/29, 03/31, 04/02, 04/04, 04/06, 04/09, 04/11, 04/13, 04/18, 04/20. 2. FEN: Hypokalemia, replete K. Hypernatremia, monitor. Metabolic acidosis, improved. Volume overload, improving. Hypercalcemia, monitor. Low Ca bath. Monitor lytes. 3. Septic shock: Currently off pressors. Recurrent fever. Per ID recommendation the dialysis catheter was removed on 04/20. 4. Rhabdomyolysis: Improved. 5. A.fib with RVR: On Amiodarone and Metoprolol. Followed by Cards. 6. Respiratory failure: Extubated. On BIPAP intermittently. 7. Severe anemia: S/p PRBC. On Epogen. 8. Elevated transaminases: Improved. 9. Encephalopathy. Examination: General appearance: well-developed, appears stated age, obese HEENT: Atraumatic EYES: Pupils reacting to light Neck: supple Respiratory: CTAB, decreased breath sounds Cardiology: regular, S1S2 heard, no murmur Gastrointestinal: obese, BS heard, not tender Integumentary: no rash noted Neurologic: alert, follows command, conversing, MS is better today Ext: L UE edema is better Hemodialysis access: None Subjective Date of service: 04/22/19 Principal diagnosis: anemia - DVT IJ Interval history: Patient was seen and examined at the bedside. Doing ok. Objective - Vital Signs Vital signs: Vital Signs - 12hr 04/21/19 04/21/19 04/22/19 22:00 23:00 00:00 Temperature 98.1 F Pulse Rate 127 H 82 88 Pulse Rate [ 130 H From Monitor] Respiratory 24 26 H 14 Rate Blood Pressure 113/65 106/71 123/73 O2 Sat by Pulse 97 Oximetry 04/22/19 04/22/19 04/22/19 00:02 00:20 01:00 Temperature Pulse Rate 137 H 144 H 84 Pulse Rate [ From Monitor] Respiratory 26 H 18 Rate Blood Pressure 123/73 123/73 119/75 O2 Sat by Pulse 98 97 Oximetry 04/22/19 04/22/19 04/22/19 02:00 03:00 04:00 Temperature 97.9 F Pulse Rate 131 H 84 91 H Pulse Rate [ 83 From Monitor] Respiratory 26 H 28 H 19 Rate Blood Pressure 112/85 117/80 107/57 O2 Sat by Pulse 96 97 98 Oximetry 04/22/19 04/22/19 05:00 06:00 Temperature Pulse Rate 82 86 Pulse Rate [ From Monitor] Respiratory 27 H 17 Rate Blood Pressure 117/71 116/62 O2 Sat by Pulse 98 97 Oximetry - Lab 04/22/19 04:24 04/22/19 04:24 Most recent lab results ABG pH 7.388 pH Units (7.350-7.450) 04/06/19 05:20 ABG pCO2 38.5 mm Hg 04/06/19 05:20 ABG pO2 104.0 mm Hg (80.0-90.0) H 04/06/19 05:20 ABG HCO3 22.6 mmol/L (20.0-26.0) 04/06/19 05:20 ABG O2 Saturation 97.8 % (95.0-99.0) 04/06/19 05:20 Calcium 11.4 mg/dL (8.4-10.2) H 04/22/19 04:24 Phosphorus 5.40 mg/dL (2.5-4.5) H 04/17/19 04:15 Magnesium 1.90 mg/dL (1.7-2.3) 03/31/19 15:07 Urine Creatinine 106.6 mg/dL (0.1-20.0) H 03/17/19 16:05 Urine Sodium 95 mmol/L 03/17/19 16:05 Medications & Allergies - Medications Allergies/Adverse Reactions: Allergies No Known Allergies Allergy (Unverified 03/16/19 17:17) Home Medications: Home Medications Medication Instructions Recorded Confirmed Last Taken Type Unobtainable 03/18/19 04/20/19 Unknown History Active Medications: Generic Name Dose Route Start Last Admin Trade Name Freq PRN Reason Stop Dose Admin Acetaminophen 650 mg 04/02/19 23:26 04/21/19 20:29 Tylenol PO 650 mg Q4H PRN Administration Pain, Mild (1-3),temp>100.5 Albuterol 2.5 mg 03/29/19 13:08 Proventil IH Q4HRT PRN Shortness Of Breath Amiodarone HCl 200 mg 04/15/19 22:00 04/21/19 21:11 Cordarone PO 200 mg BID PAOLO Administration Lipase/Protease/Amylase 1 each 04/20/19 13:17 Pancreaze 10,500 Unit FEEDTUBE PRN PRN For Clogged Feeding Tube Bacitracin 1 applic 04/17/19 08:00 Antibiotic Oint TP Q4H PRN upper lip sore/open Dextrose 50 gm 04/17/19 08:00 D50w (25gm) Vial IV Q1H PRN Hypoglycemia Epoetin Jet 20,000 unit 03/31/19 10:15 04/20/19 12:47 Procrit SUB-Q 20,000 unit NEYMAR PRN Administration hemodialysis Hydralazine HCl 20 mg 04/14/19 03:00 04/14/19 03:11 Apresoline IV 20 mg Q4H PRN Administration hypertemsion Hydrophilic Ointment 1 applic 03/16/19 15:50 04/19/19 18:24 Vaseline Lip Therapy TP 1 applic Q2HR PRN Administration Dry Lips Aztreonam 2 gm in 100 mls @ 100 mls/hr 04/17/19 18:00 04/21/19 12:07 Azactam/Ns 2 Gm/100 Ml IV 100 mls/hr Q24HR PAOLO Administration Protocol Linezolid 600 mg in 300 mls @ 300 mls/hr 04/17/19 17:00 04/22/19 06:02 Zyvox 600mg/300ml IV 300 mls/hr Q12H PAOLO Administration Protocol Sodium Chloride 100 mls @ 999 mls/hr 04/20/19 08:41 Nacl 0.9% IV NEYMAR PRN Hypotension Lansoprazole 30 mg 04/11/19 10:00 04/21/19 21:11 Prevacid Solutab FEEDTUBE 30 mg BID PAOLO Administration Metoprolol Tartrate 5 mg 04/16/19 22:24 04/22/19 00:20 Lopressor IV 5 mg Q6H PRN Administration For HR >120 Metoprolol Tartrate 25 mg 04/17/19 20:00 04/21/19 20:28 Lopressor PO 25 mg TID PAOLO Administration Multi-Ingred Cream/Lotion/Oil/Oint 1 applic 03/16/19 15:50 03/19/19 20:10 Artificial Tears Ophth Oint OU 1 applic Q4HR PRN Administration Dry Eye(s) Simple Syrup 15 ml 04/20/19 13:17 Simple Syrup FEEDTUBE PRN PRN Hypoglycemia Simple Syrup 30 ml 04/20/19 13:29 Simple Syrup FEEDTUBE PRN PRN Hypoglycemia Sodium Bicarbonate 325 mg 04/20/19 13:17 Sodium Bicarbonate FEEDTUBE PRN PRN For Clogged Feeding Tube Sodium Hypochlorite 1 applic 04/18/19 11:00 04/21/19 21:11 Dakin's Half Strength TP 1 applicatio BID PAOLO Administration
--- NOTE | 2019-04-22 09:39 | Progress Note ---
Assessment and Plan Patient is a 43-year-old man with history of GERD, obesity and mental illness, who presented to [facility] ED on 03/16/2019 with altered mental status. He is visiting from [place] and was brought in by his friend. As per records per family he has been homeless [address] [place]. When he came to the ER, he was unable to speak or follow commands, in the ER he was found to have SVT with heart rate in the 250s. The patient was shocked and medicated. Also was confused, and had trouble protecting his airway; therefore, he was then intubated. He has had a prolonged hospital course. During this hospital course, he was found to have sepsis with septic shock, acute resp failure, rhabdomyolysis, RUBEN, and multisystem organ failure, toxic metabolic encephalopathy. He was started on hemodialysis-still getting dialysis. patient is much improved. Still has recurrent fever, followed by ID Physician. Patient now on Azactam, Zyvox. He passed his swallow test started on mechanical soft diet today 04/21/19. Acute hypoxic respiratory failure. Was intubated, now extubated. Now on Room air. Continue BiPAP as clinically indicated. Atrial fibrillation. Continue Metoprolol. Cardiology following. No systemic AC regarding AFib in setting of anemia, thrombocytopenia, GI bleed. Acute blood loss anemia. Patient with GI bleed secondary to peptic ulcer disease. EGD completed per GI. Continue PRBCs as needed. GI bleed/peptic ulcer disease. Continue PPI. Transfuse PRBCs as needed. Sepsis/septic shock. Continue antibiotics per ID. Now on Zyvox and Azactam Fever, recurrent ID following Ischemic hepatitis/shock liver. Elevated LFTs improved. Viral hepatitis panel negative. Acute kidney injury. Patient still on hemodialysis. Patient was started on hemodialysis on 03/18/19 due to worsening metabolic acidosis and hyperkalemia. Baseline renal function is unknown. CT abdomen was negative for obstructive nephropathy. Avoid nephrotoxic agents. Continue hemodialysis per nephrology. Toxic metabolic encephalopathy. Brain MRI showed no acute intracranial abnormality, mild nonspecific chronic white matter changes, fluid throughout the sinuses and mastoid air cells. Swelling both upper ext L>R Doppler US : no DVT LUE Hypokalemia. Replete potassium as needed. Hypernatremia. Bumex was stopped. Follow-up BMP Nephrology following Now resolved Na 141 today Thrombocytopenia. Etiology likely secondary to sepsis. Resolved. Rhabdomyolysis. CK normalized. Full code status Subjective Date of service: 04/22/19 Principal diagnosis: anemia - DVT IJ Interval history: pt seen and examine. No new complaint Objective - Exam Narrative Exam: Constitutional: Well-nourished well-developed. In no distress Head: Normocephalic atraumatic Eyes: Pupils are equal round and reactive to light Nose: No enlarged turbinates, no septal deviation. Mouth: Moist mucous membranes. Neck: Supple no thyromegaly. No bruit. No JVD Heart: Irregularly irregular. No rubs murmurs or gallop Lungs: Clear to auscultation bilaterally. no rales or rhonchi Abdomen: Soft, nontender. Bowel sound are present. Extremities: No edema, no cyanosis, no clubbing. Neuro: Alert oriented Oriented x3. No focal sensory or motor deficit. Skin: No rashes or hyperpigmented spots Musculoskeletal system: No joint pain or swelling Hematological: No petechia or subcutanous hemorrhages. Immunological: No multiple septic spots on the skin Lymphatic: No generalized lymphadenopathy Psychiatry: Euthymic. Calm. - Constitutional Vitals: Vital Signs - 12hr 04/21/19 04/21/19 04/22/19 22:00 23:00 00:00 Temperature 98.1 F Pulse Rate 127 H 82 88 Pulse Rate [ 130 H From Monitor] Respiratory 24 26 H 14 Rate Blood Pressure 113/65 106/71 123/73 O2 Sat by Pulse 97 Oximetry 04/22/19 04/22/19 04/22/19 00:02 00:20 01:00 Temperature Pulse Rate 137 H 144 H 84 Pulse Rate [ From Monitor] Respiratory 26 H 18 Rate Blood Pressure 123/73 123/73 119/75 O2 Sat by Pulse 98 97 Oximetry 04/22/19 04/22/19 04/22/19 02:00 03:00 04:00 Temperature 97.9 F Pulse Rate 131 H 84 91 H Pulse Rate [ 83 From Monitor] Respiratory 26 H 28 H 19 Rate Blood Pressure 112/85 117/80 107/57 O2 Sat by Pulse 96 97 98 Oximetry 04/22/19 04/22/19 05:00 06:00 Temperature Pulse Rate 82 86 Pulse Rate [ From Monitor] Respiratory 27 H 17 Rate Blood Pressure 117/71 116/62 O2 Sat by Pulse 98 97 Oximetry - Labs CBC & Chem 7: 04/22/19 04:24 04/22/19 04:24 Labs: Abnormal lab results 04/22/19 04/22/19 04/22/19 Range/Units 04:24 04:24 06:37 WBC 14.3 H (4.5-11.0) K/mm3 RBC 3.57 L (3.65-5.03) M/mm3 Hgb 10.1 L (11.8-15.2) gm/dl Hct 32.1 L (35.5-45.6) % RDW 17.2 H (13.2-15.2) % BUN 54 H (9-20) mg/dL Creatinine 3.5 H (0.8-1.5) mg/dL POC Glucose 113 H (70-105) Calcium 11.4 H (8.4-10.2) mg/dL
[2019-04-22] MEDS: METOPROLOL TARTRATE 25 MG TAB PO SCH ×3 (10:02→20:33)
[2019-04-22] MEDS: AZTREONAM/NS 2 GM/100 ML 2 GM/100 ML VIAL IV SCH (10:03)
[2019-04-22] MEDS: SODIUM HYPOCHLORITE, DAKIN'S 1/2 STRENGTH (0.25%) 473 ML TOPICAL SOLN TP SCH ×2 (10:03→22:55)
[2019-04-22] MEDS: LANSOPRAZOLE 30 MG SOLUTAB FEEDTUBE SCH ×2 (10:03→22:54)
[2019-04-22] MEDS: AMIODARONE 200 MG TAB PO SCH ×2 (10:03→22:54)
--- NOTE | 2019-04-22 17:42 | Progress Note ---
Assessment and Plan Patient awake and more oriented. Patient Presently is on room air. O2 saturation is 98%. No acute respiratory distress. Patient afebrile and has leukocytosis. Patient is on zyvox and azactam. Patients heart rate and blood pressure running good. - Patient Problems (1) Acute respiratory failure Current Visit: Yes Status: Acute Qualifiers: Respiratory failure complication: hypoxia Qualified Code(s): J96.01 - Acute respiratory failure with hypoxia Plan to address problem: O2 2L as needed for shortness of breath or desaturation.. BiPAP standby in the room. Albuterol/atrovent aerosol treatments q 6 hours. Continue Prevacid. Recommend DVT prophylaxis. SCDs (2) Altered mental status Current Visit: Yes Status: Acute Qualifiers: Altered mental status type: unspecified Qualified Code(s): R41.82 - Altered mental status, unspecified Plan to address problem: Management as per primary care and neurology. (3) Atrial fibrillation with RVR Current Visit: Yes Status: Acute Plan to address problem: Management as per cardiology. (4) Cardiopulmonary arrest Current Visit: Yes Status: Acute Plan to address problem: Patient resucitated. Presently resting on room air. (5) Acute renal failure Current Visit: Yes Status: Acute Qualifiers: Acute renal failure type: with acute tubular necrosis Qualified Code(s): N17.0 - Acute kidney failure with tubular necrosis Plan to address problem: Management as per nephrology. (6) Aspiration pneumonia Current Visit: Yes Status: Acute Qualifiers: Aspiration pneumonia type: unspecified Plan to address problem: Patient is on Azactam and zyvox. (7) GI bleed Current Visit: Yes Status: Acute Plan to address problem: Management as per gastroenterology. Subjective Date of service: 04/22/19 Principal diagnosis: anemia - DVT IJ Interval history: Patient awake and more oriented. Patient Presently is on room air. O2 saturation is 98%. No acute respiratory distress. Patient afebrile and has leukocytosis. Patient is on zyvox and azactam. Patients heart rate and blood pressure running good. Objective Vital Signs - 12hr 04/22/19 04/22/19 04/22/19 06:00 07:00 08:00 Temperature 98.2 F Pulse Rate 86 132 H 155 H Pulse Rate [ 128 H From Monitor] Respiratory 17 18 16 Rate Blood Pressure 116/62 116/62 132/89 O2 Sat by Pulse 97 99 97 Oximetry 04/22/19 04/22/19 04/22/19 09:00 10:00 10:02 Temperature Pulse Rate 95 H 146 H 132 H Pulse Rate [ From Monitor] Respiratory 13 20 Rate Blood Pressure 106/58 100/68 106/58 O2 Sat by Pulse 97 99 Oximetry 04/22/19 04/22/19 04/22/19 11:00 12:00 13:00 Temperature 98.7 F Pulse Rate 132 H 138 H 132 H Pulse Rate [ 90 From Monitor] Respiratory 15 24 14 Rate Blood Pressure 100/68 99/75 109/80 O2 Sat by Pulse 98 99 98 Oximetry 04/22/19 13:38 Temperature Pulse Rate 98 H Pulse Rate [ From Monitor] Respiratory Rate Blood Pressure 109/80 O2 Sat by Pulse Oximetry Constitutional: no acute distress, alert Eyes: icteric ENT: oropharynx moist Neck: supple, no lymphadenopathy, no JVD, other (large neck circumference) Effort: normal Ascultation: Bilateral: diminished breath sounds, rales, rhonchi (scant) Percussion: Bilateral: not dull Cardiovascular: regular rate and rhythm, other ( S1,S2) Gastrointestinal: normoactive bowel sounds, soft, non-tender Integumentary: normal Extremities: no cyanosis, pink and warm, pulses normal, no ischemia or petechiae, edema (right upper extremity) Neurologic: normal mental status, non-focal exam (grossly), pupils equal and round, CN II-XII normal, other (very weak, intermittent confusion, left extremity weaker than the right) Psychiatric: mood appropriate, affect normal CBC and BMP: 04/22/19 04:24 04/22/19 04:24 ABG, PT/INR, D-dimer: ABG POC ABG pH 7.401 (7.35-7.45) 04/07/19 12:57 ABG pH 7.388 pH Units (7.350-7.450) 04/06/19 05:20 POC ABG pCO2 41.5 (35-45) 04/07/19 12:57 ABG pCO2 38.5 mm Hg 04/06/19 05:20 POC ABG pO2 107 (80-105) H 04/07/19 12:57 ABG pO2 104.0 mm Hg (80.0-90.0) H 04/06/19 05:20 POC ABG HCO3 25.7 (22-26 mml/L) 04/07/19 12:57 POC ABG Total CO2 27 (23-27mmol/L) 04/07/19 12:57 POC ABG O2 Sat 98 04/07/19 12:57 ABG O2 Saturation 97.8 % (95.0-99.0) 04/06/19 05:20 PT/INR, D-dimer PT 15.3 Sec. (12.2-14.9) H 03/29/19 11:48 INR 1.24 (0.87-1.13) H 03/29/19 11:48 D-Dimer 4845.98 ng/mlDDU (0-234) H 03/28/19 12:00 Abnormal lab findings: Abnormal Labs 03/16/19 03/16/19 03/16/19 15:32 16:03 16:05 WBC 27.0 H RBC 5.55 H Hgb 15.7 H Hct 47.1 H MCV MCHC RDW Plt Count 75 L Lymph % (Auto) [place] % (Auto) Lymph # [place] # Seg Neutrophils % Seg Neuts % (Manual) 85.0 H Lymphocytes % (Manual) 2.0 L Monocytes % (Manual) Nucleated RBC % Seg Neutrophils # Seg Neutrophils # Man 23.0 H Lymphocytes # (Manual) 0.5 L Monocytes # (Manual) PT INR D-Dimer Heparin Anti-Xa Level POC ABG pH ABG pH POC ABG pCO2 POC ABG pO2 ABG pO2 ABG HCO3 ABG O2 Saturation ABG Base Excess ABG Hemoglobin Oxyhemoglobin Sodium 127 L Potassium Chloride 87.8 L Carbon Dioxide 17 L BUN 49 H Creatinine 5.8 H Glucose 150 H POC Glucose 118 H Lactic Acid Calcium 6.6 L Ionized Calcium Phosphorus Magnesium 1.10 L Iron TIBC Ferritin Total Bilirubin Direct Bilirubin AST ALT Alkaline Phosphatase Total Creatine Kinase 98642 H CK-MB (CK-2) Troponin T C-Reactive Protein Total Protein Albumin Triglycerides LDL Cholesterol Direct HDL Cholesterol Free T4 PTH Intact Urine WBC (Auto) Urine Creatinine Salicylates Acetaminophen Crossmatch 03/16/19 03/16/19 03/16/19 16:59 17:05 17:05 WBC RBC Hgb Hct MCV MCHC RDW Plt Count Lymph % (Auto) [place] % (Auto) Lymph # [place] # Seg Neutrophils % Seg Neuts % (Manual) Lymphocytes % (Manual) Monocytes % (Manual) Nucleated RBC % Seg Neutrophils # Seg Neutrophils # Man Lymphocytes # (Manual) Monocytes # (Manual) PT INR D-Dimer Heparin Anti-Xa Level POC ABG pH 7.297 L ABG pH POC ABG pCO2 33.0 L POC ABG pO2 ABG pO2 ABG HCO3 ABG O2 Saturation ABG Base Excess ABG Hemoglobin Oxyhemoglobin Sodium Potassium Chloride Carbon Dioxide BUN Creatinine Glucose POC Glucose Lactic Acid Calcium Ionized Calcium Phosphorus Magnesium Iron TIBC Ferritin Total Bilirubin Direct Bilirubin AST ALT Alkaline Phosphatase Total Creatine Kinase 85630 H CK-MB (CK-2) 83.1 H Troponin T C-Reactive Protein Total Protein Albumin Triglycerides LDL Cholesterol Direct HDL Cholesterol Free T4 0.72 L PTH Intact Urine WBC (Auto) Urine Creatinine Salicylates Acetaminophen Crossmatch 03/16/19 03/16/19 03/16/19 17:05 17:05 17:05 WBC RBC Hgb Hct MCV MCHC RDW Plt Count Lymph % (Auto) [place] % (Auto) Lymph # [place] # Seg Neutrophils % Seg Neuts % (Manual) Lymphocytes % (Manual) Monocytes % (Manual) Nucleated RBC % Seg Neutrophils # Seg Neutrophils # Man Lymphocytes # (Manual) Monocytes # (Manual) PT INR D-Dimer Heparin Anti-Xa Level POC ABG pH ABG pH POC ABG pCO2 POC ABG pO2 ABG pO2 ABG HCO3 ABG O2 Saturation ABG Base Excess ABG Hemoglobin Oxyhemoglobin Sodium Potassium Chloride Carbon Dioxide BUN Creatinine Glucose POC Glucose Lactic Acid 5.10 H* Calcium Ionized Calcium Phosphorus Magnesium Iron TIBC Ferritin Total Bilirubin Direct Bilirubin AST ALT Alkaline Phosphatase Total Creatine Kinase CK-MB (CK-2) Troponin T C-Reactive Protein Total Protein Albumin Triglycerides LDL Cholesterol Direct HDL Cholesterol Free T4 PTH Intact Urine WBC (Auto) Urine Creatinine Salicylates < 0.3 L Acetaminophen < 5.0 L Crossmatch 03/16/19 03/16/19 03/16/19 17:05 17:05 20:35 WBC RBC Hgb Hct MCV MCHC RDW Plt Count Lymph % (Auto) [place] % (Auto) Lymph # [place] # Seg Neutrophils % Seg Neuts % (Manual) Lymphocytes % (Manual) Monocytes % (Manual) Nucleated RBC % Seg Neutrophils # Seg Neutrophils # Man Lymphocytes # (Manual) Monocytes # (Manual) PT 15.9 H INR 1.30 H D-Dimer Heparin Anti-Xa Level POC ABG pH ABG pH POC ABG pCO2 POC ABG pO2 ABG pO2 ABG HCO3 ABG O2 Saturation ABG Base Excess ABG Hemoglobin Oxyhemoglobin Sodium Potassium Chloride Carbon Dioxide BUN Creatinine Glucose POC Glucose Lactic Acid 3.30 H* Calcium Ionized Calcium Phosphorus Magnesium Iron TIBC Ferritin Total Bilirubin 6.20 H Direct Bilirubin 5.9 H AST 800 H ALT 120 H Alkaline Phosphatase Total Creatine Kinase CK-MB (CK-2) Troponin T C-Reactive Protein Total Protein 4.4 L Albumin 2.4 L Triglycerides LDL Cholesterol Direct HDL Cholesterol Free T4 PTH Intact Urine WBC (Auto) Urine Creatinine Salicylates Acetaminophen Crossmatch 03/16/19 03/16/19 03/16/19 21:45 22:32 Unknown WBC RBC Hgb Hct MCV MCHC RDW Plt Count Lymph % (Auto) [place] % (Auto) Lymph # [place] # Seg Neutrophils % Seg Neuts % (Manual) Lymphocytes % (Manual) Monocytes % (Manual) Nucleated RBC % Seg Neutrophils # Seg Neutrophils # Man Lymphocytes # (Manual) Monocytes # (Manual) PT INR D-Dimer Heparin Anti-Xa Level POC ABG pH ABG pH POC ABG pCO2 POC ABG pO2 ABG pO2 ABG HCO3 ABG O2 Saturation ABG Base Excess ABG Hemoglobin Oxyhemoglobin Sodium Potassium Chloride Carbon Dioxide BUN Creatinine Glucose POC Glucose Lactic Acid 3.30 H* 3.00 H* Calcium Ionized Calcium Phosphorus Magnesium Iron TIBC Ferritin Total Bilirubin Direct Bilirubin AST ALT Alkaline Phosphatase Total Creatine Kinase CK-MB (CK-2) Troponin T 0.047 H D C-Reactive Protein Total Protein Albumin Triglycerides 395 H LDL Cholesterol Direct 10 L HDL Cholesterol 7 L Free T4 PTH Intact Urine WBC (Auto) Urine Creatinine Salicylates Acetaminophen Crossmatch 03/17/19 03/17/19 03/17/19 03:45 03:45 03:45 WBC RBC Hgb Hct MCV MCHC RDW Plt Count Lymph % (Auto) [place] % (Auto) Lymph # [place] # Seg Neutrophils % Seg Neuts % (Manual) Lymphocytes % (Manual) Monocytes % (Manual) Nucleated RBC % Seg Neutrophils # Seg Neutrophils # Man Lymphocytes # (Manual) Monocytes # (Manual) PT INR D-Dimer Heparin Anti-Xa Level POC ABG pH ABG pH POC ABG pCO2 POC ABG pO2 ABG pO2 ABG HCO3 ABG O2 Saturation ABG Base Excess ABG Hemoglobin Oxyhemoglobin Sodium 131 L Potassium Chloride 88.9 L Carbon Dioxide BUN 53 H Creatinine 7.1 H Glucose POC Glucose Lactic Acid 4.10 H* Calcium 5.4 L* D Ionized Calcium Phosphorus 7.30 H Magnesium 1.60 L Iron TIBC Ferritin Total Bilirubin 5.90 H Direct Bilirubin AST 801 H ALT 109 H Alkaline Phosphatase Total Creatine Kinase 74888 H 43248 H CK-MB (CK-2) 41.5 H Troponin T 0.054 H C-Reactive Protein Total Protein 4.5 L Albumin 2.0 L Triglycerides LDL Cholesterol Direct HDL Cholesterol Free T4 PTH Intact Urine WBC (Auto) Urine Creatinine Salicylates Acetaminophen Crossmatch 03/17/19 03/17/19 03/17/19 05:47 07:16 07:16 WBC RBC Hgb Hct MCV MCHC RDW Plt Count Lymph % (Auto) [place] % (Auto) Lymph # [place] # Seg Neutrophils % Seg Neuts % (Manual) Lymphocytes % (Manual) Monocytes % (Manual) Nucleated RBC % Seg Neutrophils # Seg Neutrophils # Man Lymphocytes # (Manual) Monocytes # (Manual) PT INR D-Dimer Heparin Anti-Xa Level POC ABG pH 7.193 L ABG pH POC ABG pCO2 45.2 H POC ABG pO2 65 L ABG pO2 ABG HCO3 ABG O2 Saturation ABG Base Excess ABG Hemoglobin Oxyhemoglobin Sodium Potassium Chloride Carbon Dioxide BUN Creatinine Glucose POC Glucose Lactic Acid 5.50 H* Calcium Ionized Calcium Phosphorus Magnesium Iron TIBC Ferritin Total Bilirubin Direct Bilirubin AST ALT Alkaline Phosphatase Total Creatine Kinase 73721 H CK-MB (CK-2) 54.3 H Troponin T 0.058 H C-Reactive Protein Total Protein Albumin Triglycerides LDL Cholesterol Direct HDL Cholesterol Free T4 PTH Intact Urine WBC (Auto) Urine Creatinine Salicylates Acetaminophen Crossmatch 03/17/19 03/17/19 03/17/19 11:52 12:51 13:01 WBC RBC Hgb Hct MCV MCHC RDW Plt Count Lymph % (Auto) [place] % (Auto) Lymph # [place] # Seg Neutrophils % Seg Neuts % (Manual) Lymphocytes % (Manual) Monocytes % (Manual) Nucleated RBC % Seg Neutrophils # Seg Neutrophils # Man Lymphocytes # (Manual) Monocytes # (Manual) PT INR D-Dimer Heparin Anti-Xa Level POC ABG pH 7.154 L ABG pH POC ABG pCO2 34.3 L POC ABG pO2 73 L ABG pO2 ABG HCO3 ABG O2 Saturation ABG Base Excess ABG Hemoglobin Oxyhemoglobin Sodium Potassium Chloride Carbon Dioxide BUN Creatinine Glucose POC Glucose 60 L Lactic Acid 8.20 H* Calcium Ionized Calcium Phosphorus Magnesium Iron TIBC Ferritin Total Bilirubin Direct Bilirubin AST ALT Alkaline Phosphatase Total Creatine Kinase CK-MB (CK-2) Troponin T C-Reactive Protein Total Protein Albumin Triglycerides LDL Cholesterol Direct HDL Cholesterol Free T4 PTH Intact Urine WBC (Auto) Urine Creatinine Salicylates Acetaminophen Crossmatch 03/17/19 03/17/19 03/17/19 14:37 14:37 14:37 WBC 29.3 H RBC Hgb Hct MCV MCHC RDW 15.8 H Plt Count 45 L Lymph % (Auto) [place] % (Auto) Lymph # [place] # Seg Neutrophils % Seg Neuts % (Manual) 81.0 H Lymphocytes % (Manual) 1.0 L Monocytes % (Manual) 15.0 H Nucleated RBC % Seg Neutrophils # Seg Neutrophils # Man 23.7 H Lymphocytes # (Manual) 0.3 L Monocytes # (Manual) 4.4 H PT INR D-Dimer Heparin Anti-Xa Level POC ABG pH ABG pH POC ABG pCO2 POC ABG pO2 ABG pO2 ABG HCO3 ABG O2 Saturation ABG Base Excess ABG Hemoglobin Oxyhemoglobin Sodium Potassium Chloride Carbon Dioxide BUN Creatinine Glucose POC Glucose Lactic Acid 4.90 H* Calcium Ionized Calcium Phosphorus Magnesium Iron TIBC Ferritin Total Bilirubin Direct Bilirubin AST ALT Alkaline Phosphatase Total Creatine Kinase CK-MB (CK-2) Troponin T C-Reactive Protein 24.90 H Total Protein Albumin Triglycerides LDL Cholesterol Direct HDL Cholesterol Free T4 PTH Intact Urine WBC (Auto) Urine Creatinine Salicylates Acetaminophen Crossmatch 03/17/19 03/17/19 03/17/19 16:05 16:05 17:02 WBC RBC Hgb Hct MCV MCHC RDW Plt Count Lymph % (Auto) [place] % (Auto) Lymph # [place] # Seg Neutrophils % Seg Neuts % (Manual) Lymphocytes % (Manual) Monocytes % (Manual) Nucleated RBC % Seg Neutrophils # Seg Neutrophils # Man Lymphocytes # (Manual) Monocytes # (Manual) PT INR D-Dimer Heparin Anti-Xa Level POC ABG pH 7.183 L ABG pH POC ABG pCO2 POC ABG pO2 65 L ABG pO2 ABG HCO3 ABG O2 Saturation ABG Base Excess ABG Hemoglobin Oxyhemoglobin Sodium Potassium Chloride Carbon Dioxide BUN Creatinine Glucose POC Glucose Lactic Acid Calcium Ionized Calcium Phosphorus Magnesium Iron TIBC Ferritin Total Bilirubin Direct Bilirubin AST ALT Alkaline Phosphatase Total Creatine Kinase CK-MB (CK-2) Troponin T C-Reactive Protein Total Protein Albumin Triglycerides LDL Cholesterol Direct HDL Cholesterol Free T4 PTH Intact Urine WBC (Auto) 30.0 H Urine Creatinine 106.6 H Salicylates Acetaminophen Crossmatch 03/18/19 03/18/19 03/18/19 05:12 05:16 05:53 WBC RBC Hgb Hct MCV MCHC RDW Plt Count Lymph % (Auto) [place] % (Auto) Lymph # [place] # Seg Neutrophils % Seg Neuts % (Manual) Lymphocytes % (Manual) Monocytes % (Manual) Nucleated RBC % Seg Neutrophils # Seg Neutrophils # Man Lymphocytes # (Manual) Monocytes # (Manual) PT INR D-Dimer Heparin Anti-Xa Level POC ABG pH 7.257 L ABG pH POC ABG pCO2 31.6 L POC ABG pO2 69 L ABG pO2 ABG HCO3 ABG O2 Saturation ABG Base Excess ABG Hemoglobin Oxyhemoglobin Sodium Potassium Chloride Carbon Dioxide BUN Creatinine Glucose POC Glucose 141 H Lactic Acid 5.00 H* Calcium Ionized Calcium Phosphorus Magnesium Iron TIBC Ferritin Total Bilirubin Direct Bilirubin AST ALT Alkaline Phosphatase Total Creatine Kinase CK-MB (CK-2) Troponin T C-Reactive Protein Total Protein Albumin Triglycerides LDL Cholesterol Direct HDL Cholesterol Free T4 PTH Intact Urine WBC (Auto) Urine Creatinine Salicylates Acetaminophen Crossmatch 03/18/19 03/18/19 03/18/19 06:57 08:40 08:40 WBC 31.7 H RBC Hgb Hct MCV MCHC RDW 15.5 H Plt Count 35 L Lymph % (Auto) [place] % (Auto) Lymph # [place] # Seg Neutrophils % Seg Neuts % (Manual) Lymphocytes % (Manual) Monocytes % (Manual) Nucleated RBC % Seg Neutrophils # Seg Neutrophils # Man Lymphocytes # (Manual) Monocytes # (Manual) PT INR D-Dimer Heparin Anti-Xa Level POC ABG pH ABG pH POC ABG pCO2 POC ABG pO2 ABG pO2 ABG HCO3 ABG O2 Saturation ABG Base Excess ABG Hemoglobin Oxyhemoglobin Sodium 132 L Potassium 5.5 H D Chloride 88.5 L Carbon Dioxide 18 L BUN 71 H Creatinine 8.1 H Glucose 205 H POC Glucose Lactic Acid 5.00 H* Calcium 4.1 L* D Ionized Calcium Phosphorus Magnesium 2.40 H Iron TIBC Ferritin Total Bilirubin 7.50 H Direct Bilirubin AST 1088 H ALT 159 H Alkaline Phosphatase 190 H Total Creatine Kinase 917005 H CK-MB (CK-2) Troponin T C-Reactive Protein Total Protein 4.7 L Albumin 1.8 L Triglycerides LDL Cholesterol Direct HDL Cholesterol Free T4 PTH Intact Urine WBC (Auto) Urine Creatinine Salicylates Acetaminophen Crossmatch 03/18/19 03/18/19 03/18/19 12:33 12:50 13:19 WBC RBC Hgb Hct MCV MCHC RDW Plt Count Lymph % (Auto) [place] % (Auto) Lymph # [place] # Seg Neutrophils % Seg Neuts % (Manual) Lymphocytes % (Manual) Monocytes % (Manual) Nucleated RBC % Seg Neutrophils # Seg Neutrophils # Man Lymphocytes # (Manual) Monocytes # (Manual) PT INR D-Dimer Heparin Anti-Xa Level POC ABG pH 7.282 L ABG pH POC ABG pCO2 POC ABG pO2 67 L ABG pO2 ABG HCO3 ABG O2 Saturation ABG Base Excess ABG Hemoglobin Oxyhemoglobin Sodium Potassium Chloride Carbon Dioxide BUN Creatinine Glucose POC Glucose 129 H Lactic Acid 3.30 H* Calcium Ionized Calcium Phosphorus Magnesium Iron TIBC Ferritin Total Bilirubin Direct Bilirubin AST ALT Alkaline Phosphatase Total Creatine Kinase CK-MB (CK-2) Troponin T C-Reactive Protein Total Protein Albumin Triglycerides LDL Cholesterol Direct HDL Cholesterol Free T4 PTH Intact Urine WBC (Auto) Urine Creatinine Salicylates Acetaminophen Crossmatch 03/18/19 03/18/19 03/18/19 13:19 16:50 18:11 WBC RBC Hgb Hct MCV MCHC RDW Plt Count Lymph % (Auto) [place] % (Auto) Lymph # [place] # Seg Neutrophils % Seg Neuts % (Manual) Lymphocytes % (Manual) Monocytes % (Manual) Nucleated RBC % Seg Neutrophils # Seg Neutrophils # Man Lymphocytes # (Manual) Monocytes # (Manual) PT INR D-Dimer Heparin Anti-Xa Level POC ABG pH ABG pH POC ABG pCO2 POC ABG pO2 59 L ABG pO2 ABG HCO3 ABG O2 Saturation ABG Base Excess ABG Hemoglobin Oxyhemoglobin Sodium Potassium Chloride Carbon Dioxide BUN Creatinine Glucose POC Glucose 151 H Lactic Acid Calcium 4.2 L* Ionized Calcium Phosphorus Magnesium Iron TIBC Ferritin Total Bilirubin Direct Bilirubin AST ALT Alkaline Phosphatase Total Creatine Kinase 487804 H CK-MB (CK-2) Troponin T C-Reactive Protein Total Protein Albumin Triglycerides LDL Cholesterol Direct HDL Cholesterol Free T4 PTH Intact Urine WBC (Auto) Urine Creatinine Salicylates Acetaminophen Crossmatch 03/18/19 03/18/19 03/19/19 18:20 23:39 01:42 WBC RBC Hgb Hct MCV MCHC RDW Plt Count Lymph % (Auto) [place] % (Auto) Lymph # [place] # Seg Neutrophils % Seg Neuts % (Manual) Lymphocytes % (Manual) Monocytes % (Manual) Nucleated RBC % Seg Neutrophils # Seg Neutrophils # Man Lymphocytes # (Manual) Monocytes # (Manual) PT INR D-Dimer Heparin Anti-Xa Level POC ABG pH 7.345 L ABG pH 7.285 L POC ABG pCO2 POC ABG pO2 59 L ABG pO2 44.0 L ABG HCO3 ABG O2 Saturation 70.9 L ABG Base Excess -5.7 L ABG Hemoglobin 11.9 L Oxyhemoglobin 69.6 L Sodium Potassium Chloride Carbon Dioxide BUN Creatinine Glucose POC Glucose 152 H Lactic Acid Calcium Ionized Calcium Phosphorus Magnesium Iron TIBC Ferritin Total Bilirubin Direct Bilirubin AST ALT Alkaline Phosphatase Total Creatine Kinase CK-MB (CK-2) Troponin T C-Reactive Protein Total Protein Albumin Triglycerides LDL Cholesterol Direct HDL Cholesterol Free T4 PTH Intact Urine WBC (Auto) Urine Creatinine Salicylates Acetaminophen Crossmatch 03/19/19 03/19/19 03/19/19 04:00 04:00 05:35 WBC 36.5 H RBC Hgb Hct MCV MCHC RDW 15.8 H Plt Count 35 L Lymph % (Auto) [place] % (Auto) Lymph # [place] # Seg Neutrophils % Seg Neuts % (Manual) Lymphocytes % (Manual) Monocytes % (Manual) Nucleated RBC % Seg Neutrophils # Seg Neutrophils # Man Lymphocytes # (Manual) Monocytes # (Manual) PT INR D-Dimer Heparin Anti-Xa Level POC ABG pH ABG pH 7.265 L POC ABG pCO2 POC ABG pO2 ABG pO2 35.4 L* ABG HCO3 ABG O2 Saturation 54.4 L ABG Base Excess -6.7 L ABG Hemoglobin 12.9 L Oxyhemoglobin 53.4 L Sodium 132 L Potassium 5.7 H Chloride 89.8 L Carbon Dioxide 19 L BUN 62 H Creatinine 6.4 H Glucose 151 H POC Glucose Lactic Acid Calcium 5.2 L* D Ionized Calcium Phosphorus Magnesium Iron TIBC Ferritin Total Bilirubin 7.80 H Direct Bilirubin AST 682 H ALT 130 H Alkaline Phosphatase 167 H Total Creatine Kinase CK-MB (CK-2) Troponin T C-Reactive Protein Total Protein 4.8 L Albumin 2.3 L Triglycerides LDL Cholesterol Direct HDL Cholesterol Free T4 PTH Intact Urine WBC (Auto) Urine Creatinine Salicylates Acetaminophen Crossmatch 03/19/19 03/19/19 03/19/19 05:49 09:16 09:50 WBC RBC Hgb Hct MCV MCHC RDW Plt Count Lymph % (Auto) [place] % (Auto) Lymph # [place] # Seg Neutrophils % Seg Neuts % (Manual) Lymphocytes % (Manual) Monocytes % (Manual) Nucleated RBC % Seg Neutrophils # Seg Neutrophils # Man Lymphocytes # (Manual) Monocytes # (Manual) PT INR D-Dimer Heparin Anti-Xa Level POC ABG pH 7.222 L ABG pH POC ABG pCO2 56.6 H POC ABG pO2 ABG pO2 ABG HCO3 ABG O2 Saturation ABG Base Excess ABG Hemoglobin Oxyhemoglobin Sodium Potassium Chloride Carbon Dioxide BUN Creatinine Glucose POC Glucose 154 H Lactic Acid 2.70 H* Calcium Ionized Calcium Phosphorus Magnesium Iron TIBC Ferritin Total Bilirubin Direct Bilirubin AST ALT Alkaline Phosphatase Total Creatine Kinase CK-MB (CK-2) Troponin T C-Reactive Protein Total Protein Albumin Triglycerides LDL Cholesterol Direct HDL Cholesterol Free T4 PTH Intact Urine WBC (Auto) Urine Creatinine Salicylates Acetaminophen Crossmatch 03/19/19 03/19/19 03/19/19 09:50 11:28 17:58 WBC RBC Hgb Hct MCV MCHC RDW Plt Count Lymph % (Auto) [place] % (Auto) Lymph # [place] # Seg Neutrophils % Seg Neuts % (Manual) Lymphocytes % (Manual) Monocytes % (Manual) Nucleated RBC % Seg Neutrophils # Seg Neutrophils # Man Lymphocytes # (Manual) Monocytes # (Manual) PT INR D-Dimer Heparin Anti-Xa Level POC ABG pH 7.250 L ABG pH POC ABG pCO2 52.6 H POC ABG pO2 ABG pO2 ABG HCO3 ABG O2 Saturation ABG Base Excess ABG Hemoglobin Oxyhemoglobin Sodium Potassium Chloride Carbon Dioxide BUN Creatinine Glucose POC Glucose 160 H Lactic Acid Calcium Ionized Calcium Phosphorus Magnesium Iron TIBC Ferritin Total Bilirubin Direct Bilirubin AST ALT Alkaline Phosphatase Total Creatine Kinase 81759 H CK-MB (CK-2) Troponin T C-Reactive Protein Total Protein Albumin Triglycerides LDL Cholesterol Direct HDL Cholesterol Free T4 PTH Intact Urine WBC (Auto) Urine Creatinine Salicylates Acetaminophen Crossmatch 03/19/19 03/19/1903/20/19 19:48 21:03 02:16 WBC RBC Hgb Hct MCV MCHC RDW Plt Count Lymph % (Auto) [place] % (Auto) Lymph # [place] # Seg Neutrophils % Seg Neuts % (Manual) Lymphocytes % (Manual) Monocytes % (Manual) Nucleated RBC % Seg Neutrophils # Seg Neutrophils # Man Lymphocytes # (Manual) Monocytes # (Manual) PT INR D-Dimer Heparin Anti-Xa Level POC ABG pH 7.279 L ABG pH POC ABG pCO2 50.3 H POC ABG pO2 129 H ABG pO2 ABG HCO3 ABG O2 Saturation ABG Base Excess ABG Hemoglobin Oxyhemoglobin Sodium Potassium Chloride Carbon Dioxide BUN Creatinine Glucose POC Glucose 119 H 119 H Lactic Acid Calcium Ionized Calcium Phosphorus Magnesium Iron TIBC Ferritin Total Bilirubin Direct Bilirubin AST ALT Alkaline Phosphatase Total Creatine Kinase CK-MB (CK-2) Troponin T C-Reactive Protein Total Protein Albumin Triglycerides LDL Cholesterol Direct HDL Cholesterol Free T4 PTH Intact Urine WBC (Auto) Urine Creatinine Salicylates Acetaminophen Crossmatch 03/20/19 03/20/19 03/20/19 04:23 05:05 09:30 WBC 36.3 H RBC Hgb Hct MCV MCHC RDW 15.5 H Plt Count 29 L Lymph % (Auto) [place] % (Auto) Lymph # [place] # Seg Neutrophils % Seg Neuts % (Manual) Lymphocytes % (Manual) Monocytes % (Manual) Nucleated RBC % Seg Neutrophils # Seg Neutrophils # Man Lymphocytes # (Manual) Monocytes # (Manual) PT INR D-Dimer Heparin Anti-Xa Level POC ABG pH ABG pH POC ABG pCO2 POC ABG pO2 280 H ABG pO2 ABG HCO3 ABG O2 Saturation ABG Base Excess ABG Hemoglobin Oxyhemoglobin Sodium Potassium Chloride Carbon Dioxide BUN Creatinine Glucose POC Glucose 115 H Lactic Acid Calcium Ionized Calcium Phosphorus Magnesium Iron TIBC Ferritin Total Bilirubin Direct Bilirubin AST ALT Alkaline Phosphatase Total Creatine Kinase CK-MB (CK-2) Troponin T C-Reactive Protein Total Protein Albumin Triglycerides LDL Cholesterol Direct HDL Cholesterol Free T4 PTH Intact Urine WBC (Auto) Urine Creatinine Salicylates Acetaminophen Crossmatch 03/20/19 03/20/19 03/20/19 09:30 09:30 11:34 WBC RBC Hgb Hct MCV MCHC RDW Plt Count Lymph % (Auto) [place] % (Auto) Lymph # [place] # Seg Neutrophils % Seg Neuts % (Manual) Lymphocytes % (Manual) Monocytes % (Manual) Nucleated RBC % Seg Neutrophils # Seg Neutrophils # Man Lymphocytes # (Manual) Monocytes # (Manual) PT INR D-Dimer Heparin Anti-Xa Level POC ABG pH ABG pH POC ABG pCO2 POC ABG pO2 ABG pO2 ABG HCO3 ABG O2 Saturation ABG Base Excess ABG Hemoglobin Oxyhemoglobin Sodium 131 L Potassium Chloride 92.3 L Carbon Dioxide 20 L BUN 68 H Creatinine 6.1 H Glucose 164 H POC Glucose 141 H Lactic Acid Calcium 5.3 L* Ionized Calcium Phosphorus Magnesium Iron TIBC Ferritin Total Bilirubin 9.50 H Direct Bilirubin AST 381 H ALT 116 H Alkaline Phosphatase 255 H Total Creatine Kinase 45968 H CK-MB (CK-2) Troponin T C-Reactive Protein Total Protein 5.1 L Albumin 2.3 L Triglycerides LDL Cholesterol Direct HDL Cholesterol Free T4 PTH Intact Urine WBC (Auto) Urine Creatinine Salicylates Acetaminophen Crossmatch 03/20/19 03/20/19 03/20/19 14:41 14:45 18:50 WBC RBC Hgb Hct MCV MCHC RDW Plt Count Lymph % (Auto) [place] % (Auto) Lymph # [place] # Seg Neutrophils % Seg Neuts % (Manual) Lymphocytes % (Manual) Monocytes % (Manual) Nucleated RBC % Seg Neutrophils # Seg Neutrophils # Man Lymphocytes # (Manual) Monocytes # (Manual) PT INR D-Dimer Heparin Anti-Xa Level POC ABG pH ABG pH POC ABG pCO2 POC ABG pO2 ABG pO2 ABG HCO3 ABG O2 Saturation ABG Base Excess ABG Hemoglobin Oxyhemoglobin Sodium Potassium Chloride Carbon Dioxide BUN Creatinine Glucose POC Glucose 117 H Lactic Acid 2.90 H* Calcium Ionized Calcium Phosphorus Magnesium Iron TIBC Ferritin Total Bilirubin Direct Bilirubin AST ALT Alkaline Phosphatase Total Creatine Kinase CK-MB (CK-2) Troponin T C-Reactive Protein 13.30 H Total Protein Albumin Triglycerides LDL Cholesterol Direct HDL Cholesterol Free T4 PTH Intact Urine WBC (Auto) Urine Creatinine Salicylates Acetaminophen Crossmatch 03/20/19 03/21/19 03/21/19 21:55 04:26 04:26 WBC 37.8 H RBC Hgb Hct MCV MCHC RDW 15.4 H Plt Count 36 L Lymph % (Auto) [place] % (Auto) Lymph # [place] # Seg Neutrophils % Seg Neuts % (Manual) 93.0 H Lymphocytes % (Manual) 3.0 L Monocytes % (Manual) Nucleated RBC % 1.0 H Seg Neutrophils # 34.6 H Seg Neutrophils # Man 35.2 H Lymphocytes # (Manual) 1.1 L Monocytes # (Manual) PT INR D-Dimer Heparin Anti-Xa Level POC ABG pH ABG pH POC ABG pCO2 POC ABG pO2 ABG pO2 ABG HCO3 ABG O2 Saturation ABG Base Excess ABG Hemoglobin Oxyhemoglobin Sodium 131 L Potassium Chloride 90.7 L Carbon Dioxide 21 L BUN 69 H Creatinine 5.7 H Glucose 170 H POC Glucose 128 H Lactic Acid Calcium 6.1 L D Ionized Calcium Phosphorus Magnesium Iron TIBC Ferritin Total Bilirubin 9.50 H Direct Bilirubin AST 308 H ALT 124 H Alkaline Phosphatase 327 H Total Creatine Kinase 42599 H CK-MB (CK-2) Troponin T C-Reactive Protein Total Protein 5.7 L Albumin 2.6 L Triglycerides LDL Cholesterol Direct HDL Cholesterol Free T4 PTH Intact Urine WBC (Auto) Urine Creatinine Salicylates Acetaminophen Crossmatch 03/21/19 03/21/19 03/21/19 05:17 05:39 08:29 WBC RBC Hgb Hct MCV MCHC RDW Plt Count Lymph % (Auto) [place] % (Auto) Lymph # [place] # Seg Neutrophils % Seg Neuts % (Manual) Lymphocytes % (Manual) Monocytes % (Manual) Nucleated RBC % Seg Neutrophils # Seg Neutrophils # Man Lymphocytes # (Manual) Monocytes # (Manual) PT INR D-Dimer Heparin Anti-Xa Level POC ABG pH ABG pH POC ABG pCO2 POC ABG pO2 209 H ABG pO2 ABG HCO3 ABG O2 Saturation ABG Base Excess ABG Hemoglobin Oxyhemoglobin Sodium Potassium Chloride Carbon Dioxide BUN Creatinine Glucose POC Glucose 145 H Lactic Acid Calcium Ionized Calcium Phosphorus Magnesium Iron TIBC Ferritin Total Bilirubin Direct Bilirubin AST ALT Alkaline Phosphatase Total Creatine Kinase 37663 H CK-MB (CK-2) Troponin T C-Reactive Protein Total Protein Albumin Triglycerides LDL Cholesterol Direct HDL Cholesterol Free T4 PTH Intact Urine WBC (Auto) Urine Creatinine Salicylates Acetaminophen Crossmatch 03/21/19 03/21/19 03/21/19 08:29 11:43 12:00 WBC RBC Hgb Hct MCV MCHC RDW Plt Count Lymph % (Auto) [place] % (Auto) Lymph # [place] # Seg Neutrophils % Seg Neuts % (Manual) Lymphocytes % (Manual) Monocytes % (Manual) Nucleated RBC % Seg Neutrophils # Seg Neutrophils # Man Lymphocytes # (Manual) Monocytes # (Manual) PT INR D-Dimer Heparin Anti-Xa Level POC ABG pH ABG pH POC ABG pCO2 POC ABG pO2 ABG pO2 ABG HCO3 ABG O2 Saturation ABG Base Excess ABG Hemoglobin Oxyhemoglobin Sodium Potassium Chloride Carbon Dioxide BUN Creatinine Glucose POC Glucose 123 H Lactic Acid 2.60 H* 2.20 H* Calcium Ionized Calcium Phosphorus Magnesium Iron TIBC Ferritin Total Bilirubin Direct Bilirubin AST ALT Alkaline Phosphatase Total Creatine Kinase CK-MB (CK-2) Troponin T C-Reactive Protein Total Protein Albumin Triglycerides LDL Cholesterol Direct HDL Cholesterol Free T4 PTH Intact Urine WBC (Auto) Urine Creatinine Salicylates Acetaminophen Crossmatch 03/21/19 03/21/19 03/21/19 14:11 18:28 19:32 WBC RBC Hgb Hct MCV MCHC RDW Plt Count Lymph % (Auto) [place] % (Auto) Lymph # [place] # Seg Neutrophils % Seg Neuts % (Manual) Lymphocytes % (Manual) Monocytes % (Manual) Nucleated RBC % Seg Neutrophils # Seg Neutrophils # Man Lymphocytes # (Manual) Monocytes # (Manual) PT INR D-Dimer Heparin Anti-Xa Level POC ABG pH 7.293 L ABG pH POC ABG pCO2 POC ABG pO2 ABG pO2 ABG HCO3 ABG O2 Saturation ABG Base Excess ABG Hemoglobin Oxyhemoglobin Sodium Potassium Chloride Carbon Dioxide BUN Creatinine Glucose POC Glucose 153 H Lactic Acid 2.10 H* Calcium Ionized Calcium Phosphorus Magnesium Iron TIBC Ferritin Total Bilirubin Direct Bilirubin AST ALT Alkaline Phosphatase Total Creatine Kinase CK-MB (CK-2) Troponin T C-Reactive Protein Total Protein Albumin Triglycerides LDL Cholesterol Direct HDL Cholesterol Free T4 PTH Intact Urine WBC (Auto) Urine Creatinine Salicylates Acetaminophen Crossmatch 03/21/19 03/22/19 03/22/19 23:38 05:08 05:51 WBC RBC Hgb Hct MCV MCHC RDW Plt Count Lymph % (Auto) [place] % (Auto) Lymph # [place] # Seg Neutrophils % Seg Neuts % (Manual) Lymphocytes % (Manual) Monocytes % (Manual) Nucleated RBC % Seg Neutrophils # Seg Neutrophils # Man Lymphocytes # (Manual) Monocytes # (Manual) PT INR D-Dimer Heparin Anti-Xa Level POC ABG pH 7.283 L ABG pH POC ABG pCO2 POC ABG pO2 53 L ABG pO2 ABG HCO3 ABG O2 Saturation ABG Base Excess ABG Hemoglobin Oxyhemoglobin Sodium Potassium Chloride Carbon Dioxide BUN Creatinine Glucose POC Glucose 149 H 131 H Lactic Acid Calcium Ionized Calcium Phosphorus Magnesium Iron TIBC Ferritin Total Bilirubin Direct Bilirubin AST ALT Alkaline Phosphatase Total Creatine Kinase CK-MB (CK-2) Troponin T C-Reactive Protein Total Protein Albumin Triglycerides LDL Cholesterol Direct HDL Cholesterol Free T4 PTH Intact Urine WBC (Auto) Urine Creatinine Salicylates Acetaminophen Crossmatch 03/22/19 03/22/19 03/22/19 08:00 08:00 18:19 WBC 36.7 H RBC Hgb 11.0 L Hct 33.5 L MCV MCHC RDW 15.5 H Plt Count 43 L Lymph % (Auto) [place] % (Auto) Lymph # [place] # Seg Neutrophils % Seg Neuts % (Manual) 87.0 H Lymphocytes % (Manual) 7.0 L Monocytes % (Manual) Nucleated RBC % Seg Neutrophils # Seg Neutrophils # Man 31.9 H Lymphocytes # (Manual) Monocytes # (Manual) PT INR D-Dimer Heparin Anti-Xa Level POC ABG pH ABG pH POC ABG pCO2 46.4 H POC ABG pO2 108 H ABG pO2 ABG HCO3 ABG O2 Saturation ABG Base Excess ABG Hemoglobin Oxyhemoglobin Sodium 132 L Potassium 5.6 H Chloride 89.6 L Carbon Dioxide 20 L BUN 101 H Creatinine 7.4 H Glucose 124 H POC Glucose Lactic Acid Calcium 5.2 L* Ionized Calcium Phosphorus Magnesium Iron TIBC Ferritin Total Bilirubin 2.80 H Direct Bilirubin AST 119 H ALT 86 H Alkaline Phosphatase 245 H Total Creatine Kinase CK-MB (CK-2) Troponin T C-Reactive Protein Total Protein 5.6 L Albumin 2.5 L Triglycerides LDL Cholesterol Direct HDL Cholesterol Free T4 PTH Intact Urine WBC (Auto) Urine Creatinine Salicylates Acetaminophen Crossmatch 03/22/19 03/23/19 03/23/19 20:37 04:49 05:28 WBC 35.9 H RBC Hgb 10.8 L Hct 33.2 L MCV MCHC RDW 15.5 H Plt Count 49 L Lymph % (Auto) [place] % (Auto) Lymph # [place] # Seg Neutrophils % Seg Neuts % (Manual) 81.0 H Lymphocytes % (Manual) 3.5 L Monocytes % (Manual) Nucleated RBC % Seg Neutrophils # Seg Neutrophils # Man 29.1 H Lymphocytes # (Manual) Monocytes # (Manual) 1.4 H PT INR D-Dimer Heparin Anti-Xa Level POC ABG pH 7.296 L ABG pH POC ABG pCO2 46.2 H POC ABG pO2 ABG pO2 ABG HCO3 ABG O2 Saturation ABG Base Excess ABG Hemoglobin Oxyhemoglobin Sodium 129 L Potassium 5.2 H Chloride 91.1 L Carbon Dioxide BUN 91 H Creatinine 6.6 H Glucose 190 H POC Glucose Lactic Acid Calcium 5.3 L* Ionized Calcium Phosphorus Magnesium Iron TIBC Ferritin Total Bilirubin 1.80 H Direct Bilirubin AST 80 H ALT 62 H Alkaline Phosphatase 209 H Total Creatine Kinase 9758 H CK-MB (CK-2) Troponin T C-Reactive Protein Total Protein 5.2 L Albumin 2.2 L Triglycerides LDL Cholesterol Direct HDL Cholesterol Free T4 PTH Intact Urine WBC (Auto) Urine Creatinine Salicylates Acetaminophen Crossmatch 03/23/19 03/23/19 03/23/19 05:28 05:31 11:33 WBC 29.7 H RBC 3.59 L Hgb 10.1 L Hct 31.1 L MCV MCHC RDW 15.4 H Plt Count 47 L Lymph % (Auto) [place] % (Auto) Lymph # [place] # Seg Neutrophils % Seg Neuts % (Manual) 89.0 H Lymphocytes % (Manual) 6.0 L Monocytes % (Manual) Nucleated RBC % 1.0 H Seg Neutrophils # Seg Neutrophils # Man 26.4 H Lymphocytes # (Manual) Monocytes # (Manual) PT INR D-Dimer Heparin Anti-Xa Level POC ABG pH ABG pH POC ABG pCO2 POC ABG pO2 ABG pO2 ABG HCO3 ABG O2 Saturation ABG Base Excess ABG Hemoglobin Oxyhemoglobin Sodium Potassium Chloride Carbon Dioxide BUN Creatinine Glucose POC Glucose 122 H 113 H Lactic Acid Calcium Ionized Calcium Phosphorus Magnesium Iron TIBC Ferritin Total Bilirubin Direct Bilirubin AST ALT Alkaline Phosphatase Total Creatine Kinase CK-MB (CK-2) Troponin T C-Reactive Protein Total Protein Albumin Triglycerides LDL Cholesterol Direct HDL Cholesterol Free T4 PTH Intact Urine WBC (Auto) Urine Creatinine Salicylates Acetaminophen Crossmatch 03/23/19 03/24/19 03/24/19 17:47 00:00 04:50 WBC 35.0 H RBC Hgb 10.4 L Hct 32.4 L MCV MCHC RDW Plt Count 60 L Lymph % (Auto) [place] % (Auto) Lymph # [place] # Seg Neutrophils % Seg Neuts % (Manual) 93.0 H Lymphocytes % (Manual) 5.0 L Monocytes % (Manual) Nucleated RBC % 7.0 H Seg Neutrophils # Seg Neutrophils # Man 32.6 H Lymphocytes # (Manual) Monocytes # (Manual) PT INR D-Dimer Heparin Anti-Xa Level POC ABG pH ABG pH POC ABG pCO2 POC ABG pO2 ABG pO2 ABG HCO3 ABG O2 Saturation ABG Base Excess ABG Hemoglobin Oxyhemoglobin Sodium Potassium Chloride Carbon Dioxide BUN Creatinine Glucose POC Glucose 111 H 108 H Lactic Acid Calcium Ionized Calcium Phosphorus Magnesium Iron TIBC Ferritin Total Bilirubin Direct Bilirubin AST ALT Alkaline Phosphatase Total Creatine Kinase CK-MB (CK-2) Troponin T C-Reactive Protein Total Protein Albumin Triglycerides LDL Cholesterol Direct HDL Cholesterol Free T4 PTH Intact Urine WBC (Auto) Urine Creatinine Salicylates Acetaminophen Crossmatch 03/24/19 03/24/19 03/24/19 04:50 05:06 12:55 WBC RBC Hgb Hct MCV MCHC RDW Plt Count Lymph % (Auto) [place] % (Auto) Lymph # [place] # Seg Neutrophils % Seg Neuts % (Manual) Lymphocytes % (Manual) Monocytes % (Manual) Nucleated RBC % Seg Neutrophils # Seg Neutrophils # Man Lymphocytes # (Manual) Monocytes # (Manual) PT INR D-Dimer Heparin Anti-Xa Level POC ABG pH ABG pH POC ABG pCO2 POC ABG pO2 ABG pO2 ABG HCO3 ABG O2 Saturation ABG Base Excess ABG Hemoglobin Oxyhemoglobin Sodium 134 L Potassium 5.1 H Chloride 95.3 L Carbon Dioxide 21 L BUN 85 H Creatinine 6.4 H Glucose 109 H POC Glucose 112 H 110 H Lactic Acid Calcium 5.8 L* Ionized Calcium Phosphorus Magnesium Iron TIBC Ferritin Total Bilirubin Direct Bilirubin AST ALT Alkaline Phosphatase Total Creatine Kinase 5747 H CK-MB (CK-2) Troponin T C-Reactive Protein Total Protein Albumin Triglycerides LDL Cholesterol Direct HDL Cholesterol Free T4 PTH Intact Urine WBC (Auto) Urine Creatinine Salicylates Acetaminophen Crossmatch 03/24/19 03/25/19 03/25/19 23:29 05:00 05:00 WBC RBC Hgb Hct MCV MCHC RDW Plt Count Lymph % (Auto) [place] % (Auto) Lymph # [place] # Seg Neutrophils % Seg Neuts % (Manual) Lymphocytes % (Manual) Monocytes % (Manual) Nucleated RBC % Seg Neutrophils # Seg Neutrophils # Man Lymphocytes # (Manual) Monocytes # (Manual) PT INR D-Dimer Heparin Anti-Xa Level POC ABG pH ABG pH POC ABG pCO2 POC ABG pO2 ABG pO2 ABG HCO3 ABG O2 Saturation ABG Base Excess ABG Hemoglobin Oxyhemoglobin Sodium 133 L Potassium Chloride 94.0 L Carbon Dioxide 21 L BUN 81 H Creatinine 6.4 H Glucose POC Glucose 109 H Lactic Acid Calcium 5.5 L* Ionized Calcium Phosphorus Magnesium Iron TIBC Ferritin Total Bilirubin Direct Bilirubin AST 80 H ALT Alkaline Phosphatase 202 H Total Creatine Kinase 3589 H CK-MB (CK-2) Troponin T C-Reactive Protein Total Protein 5.3 L Albumin 2.4 L Triglycerides LDL Cholesterol Direct HDL Cholesterol Free T4 PTH Intact 329.9 H Urine WBC (Auto) Urine Creatinine Salicylates Acetaminophen Crossmatch 03/25/19 03/25/19 03/26/19 05:00 06:30 04:30 WBC 23.3 H RBC 3.61 L Hgb 10.2 L Hct 31.2 L MCV MCHC RDW Plt Count 57 L Lymph % (Auto) [place] % (Auto) Lymph # [place] # Seg Neutrophils % Seg Neuts % (Manual) 92.0 H Lymphocytes % (Manual) 6.0 L Monocytes % (Manual) Nucleated RBC % Seg Neutrophils # Seg Neutrophils # Man 21.4 H Lymphocytes # (Manual) Monocytes # (Manual) PT INR D-Dimer Heparin Anti-Xa Level POC ABG pH ABG pH 7.326 L POC ABG pCO2 POC ABG pO2 ABG pO2 109.5 H 137.4 H ABG HCO3 18.8 L 18.6 L ABG O2 Saturation ABG Base Excess -4.4 L -6.8 L ABG Hemoglobin 10.1 L 9.9 L Oxyhemoglobin Sodium Potassium Chloride Carbon Dioxide BUN Creatinine Glucose POC Glucose Lactic Acid Calcium Ionized Calcium Phosphorus Magnesium Iron TIBC Ferritin Total Bilirubin Direct Bilirubin AST ALT Alkaline Phosphatase Total Creatine Kinase CK-MB (CK-2) Troponin T C-Reactive Protein Total Protein Albumin Triglycerides LDL Cholesterol Direct HDL Cholesterol Free T4 PTH Intact Urine WBC (Auto) Urine Creatinine Salicylates Acetaminophen Crossmatch 03/26/19 03/26/19 03/26/19 23:22 Unknown Unknown WBC 19.5 H RBC 3.44 L Hgb 9.8 L Hct 29.9 L MCV MCHC RDW Plt Count 85 L Lymph % (Auto) [place] % (Auto) Lymph # [place] # Seg Neutrophils % Seg Neuts % (Manual) 95.0 H Lymphocytes % (Manual) 3.0 L Monocytes % (Manual) Nucleated RBC % Seg Neutrophils # Seg Neutrophils # Man 18.5 H Lymphocytes # (Manual) 0.6 L Monocytes # (Manual) PT INR D-Dimer Heparin Anti-Xa Level POC ABG pH ABG pH POC ABG pCO2 POC ABG pO2 ABG pO2 ABG HCO3 ABG O2 Saturation ABG Base Excess ABG Hemoglobin Oxyhemoglobin Sodium 135 L Potassium 5.2 H D Chloride 92.2 L Carbon Dioxide 18 L BUN 109 H Creatinine 8.5 H Glucose 117 H POC Glucose 69 L Lactic Acid Calcium 4.5 L* D Ionized Calcium Phosphorus Magnesium Iron TIBC Ferritin Total Bilirubin Direct Bilirubin AST ALT Alkaline Phosphatase Total Creatine Kinase 4527 H CK-MB (CK-2) Troponin T C-Reactive Protein Total Protein Albumin Triglycerides LDL Cholesterol Direct HDL Cholesterol Free T4 PTH Intact Urine WBC (Auto) Urine Creatinine Salicylates Acetaminophen Crossmatch 03/27/19 03/27/19 03/27/19 04:30 04:30 09:00 WBC 19.2 H RBC 3.42 L Hgb 9.9 L Hct 30.0 L MCV MCHC RDW Plt Count 84 L Lymph % (Auto) [place] % (Auto) Lymph # [place] # Seg Neutrophils % Seg Neuts % (Manual) Lymphocytes % (Manual) Monocytes % (Manual) Nucleated RBC % Seg Neutrophils # Seg Neutrophils # Man Lymphocytes # (Manual) Monocytes # (Manual) PT INR D-Dimer Heparin Anti-Xa Level POC ABG pH ABG pH POC ABG pCO2 POC ABG pO2 ABG pO2 ABG HCO3 ABG O2 Saturation ABG Base Excess ABG Hemoglobin Oxyhemoglobin Sodium 135 L Potassium Chloride 93.5 L Carbon Dioxide BUN 84 H Creatinine 7.1 H Glucose POC Glucose Lactic Acid Calcium 5.0 L* Ionized Calcium Phosphorus Magnesium Iron TIBC Ferritin Total Bilirubin Direct Bilirubin AST 78 H ALT Alkaline Phosphatase 135 H Total Creatine Kinase 4677 H CK-MB (CK-2) Troponin T C-Reactive Protein Total Protein 4.8 L Albumin 2.3 L Triglycerides 409 H LDL Cholesterol Direct HDL Cholesterol Free T4 PTH Intact Urine WBC (Auto) Urine Creatinine Salicylates Acetaminophen Crossmatch 03/27/19 03/27/19 03/27/19 12:37 14:15 14:15 WBC RBC Hgb 9.7 L Hct 29.5 L MCV MCHC RDW Plt Count 87 L Lymph % (Auto) [place] % (Auto) Lymph # [place] # Seg Neutrophils % Seg Neuts % (Manual) Lymphocytes % (Manual) Monocytes % (Manual) Nucleated RBC % Seg Neutrophils # Seg Neutrophils # Man Lymphocytes # (Manual) Monocytes # (Manual) PT 15.9 H INR 1.30 H D-Dimer Heparin Anti-Xa Level POC ABG pH ABG pH POC ABG pCO2 POC ABG pO2 ABG pO2 ABG HCO3 ABG O2 Saturation ABG Base Excess ABG Hemoglobin Oxyhemoglobin Sodium Potassium Chloride Carbon Dioxide BUN Creatinine Glucose POC Glucose 129 H Lactic Acid Calcium Ionized Calcium Phosphorus Magnesium Iron TIBC Ferritin Total Bilirubin Direct Bilirubin AST ALT Alkaline Phosphatase Total Creatine Kinase CK-MB (CK-2) Troponin T C-Reactive Protein Total Protein Albumin Triglycerides LDL Cholesterol Direct HDL Cholesterol Free T4 PTH Intact Urine WBC (Auto) Urine Creatinine Salicylates Acetaminophen Crossmatch 03/27/19 03/27/19 03/27/19 18:00 19:22 19:23 WBC RBC Hgb Hct MCV MCHC RDW Plt Count Lymph % (Auto) [place] % (Auto) Lymph # [place] # Seg Neutrophils % Seg Neuts % (Manual) Lymphocytes % (Manual) Monocytes % (Manual) Nucleated RBC % Seg Neutrophils # Seg Neutrophils # Man Lymphocytes # (Manual) Monocytes # (Manual) PT INR D-Dimer Heparin Anti-Xa Level < 0.10 L POC ABG pH ABG pH POC ABG pCO2 POC ABG pO2 ABG pO2 ABG HCO3 ABG O2 Saturation ABG Base Excess ABG Hemoglobin Oxyhemoglobin Sodium Potassium Chloride Carbon Dioxide BUN Creatinine Glucose POC Glucose 121 H Lactic Acid Calcium Ionized Calcium Phosphorus Magnesium Iron TIBC Ferritin Total Bilirubin Direct Bilirubin AST ALT Alkaline Phosphatase Total Creatine Kinase 4517 H CK-MB (CK-2) Troponin T C-Reactive Protein Total Protein Albumin Triglycerides LDL Cholesterol Direct HDL Cholesterol Free T4 PTH Intact Urine WBC (Auto) Urine Creatinine Salicylates Acetaminophen Crossmatch 03/27/19 03/27/19 03/28/19 22:10 23:52 03:49 WBC RBC Hgb Hct MCV MCHC RDW Plt Count Lymph % (Auto) [place] % (Auto) Lymph # [place] # Seg Neutrophils % Seg Neuts % (Manual) Lymphocytes % (Manual) Monocytes % (Manual) Nucleated RBC % Seg Neutrophils # Seg Neutrophils # Man Lymphocytes # (Manual) Monocytes # (Manual) PT INR D-Dimer Heparin Anti-Xa Level POC ABG pH 7.338 L ABG pH POC ABG pCO2 33.1 L POC ABG pO2 ABG pO2 ABG HCO3 ABG O2 Saturation ABG Base Excess ABG Hemoglobin Oxyhemoglobin Sodium Potassium Chloride Carbon Dioxide BUN Creatinine Glucose POC Glucose 113 H 117 H Lactic Acid Calcium Ionized Calcium Phosphorus Magnesium Iron TIBC Ferritin Total Bilirubin Direct Bilirubin AST ALT Alkaline Phosphatase Total Creatine Kinase CK-MB (CK-2) Troponin T C-Reactive Protein Total Protein Albumin Triglycerides LDL Cholesterol Direct HDL Cholesterol Free T4 PTH Intact Urine WBC (Auto) Urine Creatinine Salicylates Acetaminophen Crossmatch 03/28/19 03/28/19 03/28/19 05:13 05:13 06:18 WBC RBC Hgb Hct MCV MCHC RDW Plt Count Lymph % (Auto) [place] % (Auto) Lymph # [place] # Seg Neutrophils % Seg Neuts % (Manual) Lymphocytes % (Manual) Monocytes % (Manual) Nucleated RBC % Seg Neutrophils # Seg Neutrophils # Man Lymphocytes # (Manual) Monocytes # (Manual) PT INR D-Dimer Heparin Anti-Xa Level 0.23 L POC ABG pH ABG pH POC ABG pCO2 POC ABG pO2 ABG pO2 ABG HCO3 ABG O2 Saturation ABG Base Excess ABG Hemoglobin Oxyhemoglobin Sodium 135 L Potassium 5.5 H D Chloride 95.1 L Carbon Dioxide 16 L D BUN 129 H Creatinine 9.3 H Glucose 158 H POC Glucose 202 H Lactic Acid Calcium 4.0 L* D Ionized Calcium Phosphorus 12.40 H Magnesium Iron TIBC Ferritin Total Bilirubin Direct Bilirubin AST ALT Alkaline Phosphatase Total Creatine Kinase 4266 H CK-MB (CK-2) Troponin T C-Reactive Protein Total Protein Albumin Triglycerides LDL Cholesterol Direct HDL Cholesterol Free T4 PTH Intact Urine WBC (Auto) Urine Creatinine Salicylates Acetaminophen Crossmatch 03/28/19 03/28/19 03/28/19 08:25 10:00 12:00 WBC RBC Hgb 4.9 L* D Hct 15.4 L* D MCV MCHC RDW Plt Count Lymph % (Auto) [place] % (Auto) Lymph # [place] # Seg Neutrophils % Seg Neuts % (Manual) Lymphocytes % (Manual) Monocytes % (Manual) Nucleated RBC % Seg Neutrophils # Seg Neutrophils # Man Lymphocytes # (Manual) Monocytes # (Manual) PT 17.9 H INR 1.52 H D-Dimer 4845.98 H Heparin Anti-Xa Level POC ABG pH ABG pH POC ABG pCO2 POC ABG pO2 ABG pO2 ABG HCO3 ABG O2 Saturation ABG Base Excess ABG Hemoglobin Oxyhemoglobin Sodium Potassium Chloride Carbon Dioxide BUN Creatinine Glucose POC Glucose Lactic Acid Calcium Ionized Calcium Phosphorus Magnesium Iron TIBC Ferritin Total Bilirubin Direct Bilirubin AST ALT Alkaline Phosphatase Total Creatine Kinase CK-MB (CK-2) Troponin T C-Reactive Protein Total Protein Albumin Triglycerides LDL Cholesterol Direct HDL Cholesterol Free T4 PTH Intact Urine WBC (Auto) Urine Creatinine Salicylates Acetaminophen Crossmatch See Detail 03/28/19 03/28/19 03/28/19 12:28 14:10 17:43 WBC RBC Hgb 5.9 L* Hct 18.3 L* MCV MCHC RDW Plt Count Lymph % (Auto) [place] % (Auto) Lymph # [place] # Seg Neutrophils % Seg Neuts % (Manual) Lymphocytes % (Manual) Monocytes % (Manual) Nucleated RBC % Seg Neutrophils # Seg Neutrophils # Man Lymphocytes # (Manual) Monocytes # (Manual) PT INR D-Dimer Heparin Anti-Xa Level POC ABG pH ABG pH POC ABG pCO2 POC ABG pO2 ABG pO2 ABG HCO3 ABG O2 Saturation ABG Base Excess ABG Hemoglobin Oxyhemoglobin Sodium Potassium Chloride Carbon Dioxide BUN Creatinine Glucose POC Glucose 153 H 159 H Lactic Acid Calcium Ionized Calcium Phosphorus Magnesium Iron TIBC Ferritin Total Bilirubin Direct Bilirubin AST ALT Alkaline Phosphatase Total Creatine Kinase CK-MB (CK-2) Troponin T C-Reactive Protein Total Protein Albumin Triglycerides LDL Cholesterol Direct HDL Cholesterol Free T4 PTH Intact Urine WBC (Auto) Urine Creatinine Salicylates Acetaminophen Crossmatch 03/28/19 03/28/19 03/28/19 18:10 Unknown 23:59 WBC 24.8 H RBC 3.42 L Hgb 10.2 L D Hct 31.1 L D MCV MCHC RDW 15.4 H Plt Count 54 L Lymph % (Auto) [place] % (Auto) Lymph # [place] # Seg Neutrophils % Seg Neuts % (Manual) 91.0 H Lymphocytes % (Manual) 8.0 L Monocytes % (Manual) Nucleated RBC % Seg Neutrophils # Seg Neutrophils # Man 22.6 H Lymphocytes # (Manual) Monocytes # (Manual) PT INR D-Dimer Heparin Anti-Xa Level POC ABG pH ABG pH POC ABG pCO2 POC ABG pO2 ABG pO2 ABG HCO3 ABG O2 Saturation ABG Base Excess ABG Hemoglobin Oxyhemoglobin Sodium Potassium 5.7 H Chloride Carbon Dioxide BUN Creatinine Glucose POC Glucose 107 H Lactic Acid Calcium Ionized Calcium Phosphorus Magnesium Iron TIBC Ferritin Total Bilirubin Direct Bilirubin AST ALT Alkaline Phosphatase Total Creatine Kinase CK-MB (CK-2) Troponin T C-Reactive Protein Total Protein Albumin Triglycerides LDL Cholesterol Direct HDL Cholesterol Free T4 PTH Intact Urine WBC (Auto) Urine Creatinine Salicylates Acetaminophen Crossmatch 03/29/19 03/29/19 03/29/19 04:29 05:46 06:22 WBC RBC Hgb 8.6 L Hct 25.7 L MCV MCHC RDW Plt Count 93 L Lymph % (Auto) [place] % (Auto) Lymph # [place] # Seg Neutrophils % Seg Neuts % (Manual) Lymphocytes % (Manual) Monocytes % (Manual) Nucleated RBC % Seg Neutrophils # Seg Neutrophils # Man Lymphocytes # (Manual) Monocytes # (Manual) PT INR D-Dimer Heparin Anti-Xa Level POC ABG pH ABG pH POC ABG pCO2 32.2 L POC ABG pO2 ABG pO2 ABG HCO3 ABG O2 Saturation ABG Base Excess ABG Hemoglobin Oxyhemoglobin Sodium Potassium Chloride Carbon Dioxide BUN Creatinine Glucose POC Glucose 113 H Lactic Acid Calcium Ionized Calcium Phosphorus Magnesium Iron TIBC Ferritin Total Bilirubin Direct Bilirubin AST ALT Alkaline Phosphatase Total Creatine Kinase CK-MB (CK-2) Troponin T C-Reactive Protein Total Protein Albumin Triglycerides LDL Cholesterol Direct HDL Cholesterol Free T4 PTH Intact Urine WBC (Auto) Urine Creatinine Salicylates Acetaminophen Crossmatch 03/29/19 03/29/19 03/29/19 06:22 06:22 06:22 WBC 23.2 H RBC 2.91 L Hgb 8.6 L Hct 25.8 L MCV MCHC RDW Plt Count 91 L Lymph % (Auto) [place] % (Auto) Lymph # [place] # Seg Neutrophils % Seg Neuts % (Manual) Lymphocytes % (Manual) Monocytes % (Manual) Nucleated RBC % Seg Neutrophils # Seg Neutrophils # Man Lymphocytes # (Manual) Monocytes # (Manual) PT INR D-Dimer Heparin Anti-Xa Level POC ABG pH ABG pH POC ABG pCO2 POC ABG pO2 ABG pO2 ABG HCO3 ABG O2 Saturation ABG Base Excess ABG Hemoglobin Oxyhemoglobin Sodium 133 L Potassium Chloride 93.8 L Carbon Dioxide 18 L BUN 109 H Creatinine 7.4 H Glucose 124 H POC Glucose Lactic Acid Calcium 4.6 L* Ionized Calcium Phosphorus Magnesium Iron TIBC Ferritin Total Bilirubin Direct Bilirubin AST ALT Alkaline Phosphatase Total Creatine Kinase 3401 H CK-MB (CK-2) Troponin T C-Reactive Protein Total Protein Albumin Triglycerides 309 H LDL Cholesterol Direct HDL Cholesterol Free T4 PTH Intact Urine WBC (Auto) Urine Creatinine Salicylates Acetaminophen Crossmatch 03/29/19 03/29/19 03/29/19 11:48 11:48 18:24 WBC RBC Hgb 7.8 L Hct 23.2 L MCV MCHC RDW Plt Count Lymph % (Auto) [place] % (Auto) Lymph # [place] # Seg Neutrophils % Seg Neuts % (Manual) Lymphocytes % (Manual) Monocytes % (Manual) Nucleated RBC % Seg Neutrophils # Seg Neutrophils # Man Lymphocytes # (Manual) Monocytes # (Manual) PT 15.3 H INR 1.24 H D-Dimer Heparin Anti-Xa Level POC ABG pH ABG pH POC ABG pCO2 POC ABG pO2 ABG pO2 ABG HCO3 ABG O2 Saturation ABG Base Excess ABG Hemoglobin Oxyhemoglobin Sodium Potassium Chloride Carbon Dioxide BUN Creatinine Glucose POC Glucose 122 H Lactic Acid Calcium Ionized Calcium Phosphorus Magnesium Iron TIBC Ferritin Total Bilirubin Direct Bilirubin AST ALT Alkaline Phosphatase Total Creatine Kinase CK-MB (CK-2) Troponin T C-Reactive Protein Total Protein Albumin Triglycerides LDL Cholesterol Direct HDL Cholesterol Free T4 PTH Intact Urine WBC (Auto) Urine Creatinine Salicylates Acetaminophen Crossmatch 03/30/19 03/30/19 03/30/19 00:40 04:31 05:04 WBC RBC Hgb 7.6 L Hct 23.0 L MCV MCHC RDW Plt Count Lymph % (Auto) [place] % (Auto) Lymph # [place] # Seg Neutrophils % Seg Neuts % (Manual) Lymphocytes % (Manual) Monocytes % (Manual) Nucleated RBC % Seg Neutrophils # Seg Neutrophils # Man Lymphocytes # (Manual) Monocytes # (Manual) PT INR D-Dimer Heparin Anti-Xa Level POC ABG pH 7.346 L ABG pH POC ABG pCO2 POC ABG pO2 62 L ABG pO2 ABG HCO3 ABG O2 Saturation ABG Base Excess ABG Hemoglobin Oxyhemoglobin Sodium Potassium Chloride Carbon Dioxide BUN 79 H Creatinine 6.4 H Glucose POC Glucose Lactic Acid Calcium 6.1 L D Ionized Calcium Phosphorus Magnesium Iron TIBC Ferritin Total Bilirubin Direct Bilirubin AST ALT Alkaline Phosphatase Total Creatine Kinase CK-MB (CK-2) Troponin T C-Reactive Protein Total Protein Albumin Triglycerides LDL Cholesterol Direct HDL Cholesterol Free T4 PTH Intact Urine WBC (Auto) Urine Creatinine Salicylates Acetaminophen Crossmatch 03/30/19 03/30/19 03/30/19 08:45 12:09 22:43 WBC 14.3 H RBC 2.33 L Hgb 7.0 L 7.4 L Hct 21.0 L 22.3 L MCV MCHC RDW 15.6 H Plt Count 135 L Lymph % (Auto) [place] % (Auto) Lymph # [place] # Seg Neutrophils % Seg Neuts % (Manual) Lymphocytes % (Manual) Monocytes % (Manual) Nucleated RBC % Seg Neutrophils # Seg Neutrophils # Man Lymphocytes # (Manual) Monocytes # (Manual) PT INR D-Dimer Heparin Anti-Xa Level POC ABG pH ABG pH POC ABG pCO2 POC ABG pO2 ABG pO2 ABG HCO3 ABG O2 Saturation ABG Base Excess ABG Hemoglobin Oxyhemoglobin Sodium Potassium Chloride Carbon Dioxide BUN Creatinine Glucose POC Glucose Lactic Acid Calcium Ionized Calcium 3.7 L Phosphorus Magnesium Iron TIBC Ferritin Total Bilirubin Direct Bilirubin AST ALT Alkaline Phosphatase Total Creatine Kinase CK-MB (CK-2) Troponin T C-Reactive Protein Total Protein Albumin Triglycerides LDL Cholesterol Direct HDL Cholesterol Free T4 PTH Intact Urine WBC (Auto) Urine Creatinine Salicylates Acetaminophen Crossmatch 03/30/19 03/30/19 03/31/19 23:38 Unknown 04:44 WBC 11.5 H RBC 2.40 L Hgb 7.3 L Hct 21.9 L MCV MCHC RDW 15.4 H Plt Count Lymph % (Auto) 10.6 L [place] % (Auto) Lymph # [place] # Seg Neutrophils % 81.7 H Seg Neuts % (Manual) Lymphocytes % (Manual) Monocytes % (Manual) Nucleated RBC % Seg Neutrophils # 9.4 H Seg Neutrophils # Man Lymphocytes # (Manual) Monocytes # (Manual) PT INR D-Dimer Heparin Anti-Xa Level POC ABG pH ABG pH POC ABG pCO2 POC ABG pO2 ABG pO2 ABG HCO3 ABG O2 Saturation ABG Base Excess ABG Hemoglobin Oxyhemoglobin Sodium Potassium Chloride Carbon Dioxide BUN Creatinine Glucose POC Glucose 155 H Lactic Acid Calcium Ionized Calcium Phosphorus Magnesium Iron TIBC Ferritin Total Bilirubin Direct Bilirubin 0.4 H AST 63 H ALT Alkaline Phosphatase Total Creatine Kinase CK-MB (CK-2) Troponin T C-Reactive Protein Total Protein 4.9 L Albumin 2.2 L Triglycerides LDL Cholesterol Direct HDL Cholesterol Free T4 PTH Intact Urine WBC (Auto) Urine Creatinine Salicylates Acetaminophen Crossmatch 03/31/19 03/31/19 03/31/19 04:44 05:44 08:20 WBC RBC Hgb Hct MCV MCHC RDW Plt Count Lymph % (Auto) [place] % (Auto) Lymph # [place] # Seg Neutrophils % Seg Neuts % (Manual) Lymphocytes % (Manual) Monocytes % (Manual) Nucleated RBC % Seg Neutrophils # Seg Neutrophils # Man Lymphocytes # (Manual) Monocytes # (Manual) PT INR D-Dimer Heparin Anti-Xa Level POC ABG pH ABG pH POC ABG pCO2 53.5 H POC ABG pO2 62 L ABG pO2 ABG HCO3 ABG O2 Saturation ABG Base Excess ABG Hemoglobin Oxyhemoglobin Sodium 135 L Potassium Chloride 96.7 L Carbon Dioxide 19 L BUN 94 H Creatinine 7.8 H Glucose POC Glucose Lactic Acid Calcium 5.3 L* Ionized Calcium Phosphorus 8.20 H Magnesium Iron TIBC Ferritin Total Bilirubin Direct Bilirubin 0.4 H AST 60 H ALT Alkaline Phosphatase Total Creatine Kinase CK-MB (CK-2) Troponin T C-Reactive Protein Total Protein 4.8 L Albumin 2.1 L Triglycerides LDL Cholesterol Direct HDL Cholesterol Free T4 PTH Intact Urine WBC (Auto) Urine Creatinine Salicylates Acetaminophen Crossmatch 03/31/19 04/01/19 04/01/19 22:14 04:27 04:27 WBC RBC 2.60 L Hgb 8.0 L Hct 24.1 L MCV MCHC RDW 15.7 H Plt Count Lymph % (Auto) 7.9 L [place] % (Auto) Lymph # 0.7 L [place] # Seg Neutrophils % 83.6 H Seg Neuts % (Manual) Lymphocytes % (Manual) Monocytes % (Manual) Nucleated RBC % Seg Neutrophils # Seg Neutrophils # Man Lymphocytes # (Manual) Monocytes # (Manual) PT INR D-Dimer Heparin Anti-Xa Level POC ABG pH 7.286 L ABG pH POC ABG pCO2 54.7 H POC ABG pO2 179 H ABG pO2 ABG HCO3 ABG O2 Saturation ABG Base Excess ABG Hemoglobin Oxyhemoglobin Sodium Potassium Chloride Carbon Dioxide BUN 68 H Creatinine 6.6 H Glucose POC Glucose Lactic Acid Calcium 6.5 L D Ionized Calcium Phosphorus 7.30 H Magnesium Iron TIBC Ferritin Total Bilirubin Direct Bilirubin AST ALT Alkaline Phosphatase Total Creatine Kinase 1652 H CK-MB (CK-2) Troponin T C-Reactive Protein Total Protein Albumin Triglycerides LDL Cholesterol Direct HDL Cholesterol Free T4 PTH Intact Urine WBC (Auto) Urine Creatinine Salicylates Acetaminophen Crossmatch 04/01/19 04/01/19 04/01/19 05:14 05:37 18:37 WBC RBC Hgb Hct MCV MCHC RDW Plt Count Lymph % (Auto) [place] % (Auto) Lymph # [place] # Seg Neutrophils % Seg Neuts % (Manual) Lymphocytes % (Manual) Monocytes % (Manual) Nucleated RBC % Seg Neutrophils # Seg Neutrophils # Man Lymphocytes # (Manual) Monocytes # (Manual) PT INR D-Dimer Heparin Anti-Xa Level POC ABG pH 7.283 L ABG pH POC ABG pCO2 53.4 H POC ABG pO2 241 H ABG pO2 ABG HCO3 ABG O2 Saturation ABG Base Excess ABG Hemoglobin Oxyhemoglobin Sodium Potassium Chloride Carbon Dioxide BUN Creatinine Glucose POC Glucose 111 H 119 H Lactic Acid Calcium Ionized Calcium Phosphorus Magnesium Iron TIBC Ferritin Total Bilirubin Direct Bilirubin AST ALT Alkaline Phosphatase Total Creatine Kinase CK-MB (CK-2) Troponin T C-Reactive Protein Total Protein Albumin Triglycerides LDL Cholesterol Direct HDL Cholesterol Free T4 PTH Intact Urine WBC (Auto) Urine Creatinine Salicylates Acetaminophen Crossmatch 04/01/19 04/02/19 04/02/19 21:28 04:40 05:03 WBC RBC 2.36 L Hgb 7.2 L Hct 21.9 L MCV MCHC RDW 16.0 H Plt Count Lymph % (Auto) 10.8 L [place] % (Auto) Lymph # 0.8 L [place] # Seg Neutrophils % 80.3 H Seg Neuts % (Manual) Lymphocytes % (Manual) Monocytes % (Manual) Nucleated RBC % Seg Neutrophils # Seg Neutrophils # Man Lymphocytes # (Manual) Monocytes # (Manual) PT INR D-Dimer Heparin Anti-Xa Level POC ABG pH 7.299 L 7.300 L ABG pH POC ABG pCO2 48.2 H 45.2 H POC ABG pO2 133 H 107 H ABG pO2 ABG HCO3 ABG O2 Saturation ABG Base Excess ABG Hemoglobin Oxyhemoglobin Sodium Potassium Chloride Carbon Dioxide BUN Creatinine Glucose POC Glucose Lactic Acid Calcium Ionized Calcium Phosphorus Magnesium Iron TIBC Ferritin Total Bilirubin Direct Bilirubin AST ALT Alkaline Phosphatase Total Creatine Kinase CK-MB (CK-2) Troponin T C-Reactive Protein Total Protein Albumin Triglycerides LDL Cholesterol Direct HDL Cholesterol Free T4 PTH Intact Urine WBC (Auto) Urine Creatinine Salicylates Acetaminophen Crossmatch 04/02/19 04/02/19 04/02/19 05:03 05:03 12:15 WBC RBC Hgb 7.4 L Hct 22.6 L MCV MCHC RDW Plt Count Lymph % (Auto) [place] % (Auto) Lymph # [place] # Seg Neutrophils % Seg Neuts % (Manual) Lymphocytes % (Manual) Monocytes % (Manual) Nucleated RBC % Seg Neutrophils # Seg Neutrophils # Man Lymphocytes # (Manual) Monocytes # (Manual) PT INR D-Dimer Heparin Anti-Xa Level POC ABG pH ABG pH POC ABG pCO2 POC ABG pO2 ABG pO2 ABG HCO3 ABG O2 Saturation ABG Base Excess ABG Hemoglobin Oxyhemoglobin Sodium 136 L Potassium Chloride 97.8 L Carbon Dioxide 18 L BUN 82 H Creatinine 8.2 H Glucose POC Glucose Lactic Acid Calcium 6.7 L Ionized Calcium Phosphorus 7.50 H Magnesium Iron 26 L TIBC 138 L Ferritin 607.0 H Total Bilirubin Direct Bilirubin AST ALT Alkaline Phosphatase Total Creatine Kinase CK-MB (CK-2) Troponin T C-Reactive Protein Total Protein Albumin Triglycerides LDL Cholesterol Direct HDL Cholesterol Free T4 PTH Intact Urine WBC (Auto) Urine Creatinine Salicylates Acetaminophen Crossmatch 04/02/19 04/02/19 04/03/19 16:34 17:14 04:18 WBC RBC Hgb Hct MCV MCHC RDW Plt Count Lymph % (Auto) [place] % (Auto) Lymph # [place] # Seg Neutrophils % Seg Neuts % (Manual) Lymphocytes % (Manual) Monocytes % (Manual) Nucleated RBC % Seg Neutrophils # Seg Neutrophils # Man Lymphocytes # (Manual) Monocytes # (Manual) PT INR D-Dimer Heparin Anti-Xa Level POC ABG pH ABG pH POC ABG pCO2 POC ABG pO2 146 H ABG pO2 ABG HCO3 ABG O2 Saturation ABG Base Excess ABG Hemoglobin Oxyhemoglobin Sodium Potassium Chloride Carbon Dioxide BUN Creatinine Glucose POC Glucose 108 H Lactic Acid Calcium Ionized Calcium Phosphorus Magnesium Iron TIBC Ferritin Total Bilirubin Direct Bilirubin AST ALT Alkaline Phosphatase Total Creatine Kinase CK-MB (CK-2) Troponin T C-Reactive Protein Total Protein Albumin Triglycerides LDL Cholesterol Direct HDL Cholesterol Free T4 PTH Intact Urine WBC (Auto) Urine Creatinine Salicylates Acetaminophen Crossmatch See Detail 04/03/19 04/03/19 04/03/19 04:25 08:30 18:24 WBC RBC 2.40 L Hgb 7.3 L Hct 21.9 L MCV MCHC RDW Plt Count Lymph % (Auto) [place] % (Auto) 7.7 H Lymph # 0.9 L [place] # Seg Neutrophils % 74.6 H Seg Neuts % (Manual) Lymphocytes % (Manual) Monocytes % (Manual) Nucleated RBC % Seg Neutrophils # Seg Neutrophils # Man Lymphocytes # (Manual) Monocytes # (Manual) PT INR D-Dimer Heparin Anti-Xa Level POC ABG pH ABG pH POC ABG pCO2 POC ABG pO2 ABG pO2 ABG HCO3 ABG O2 Saturation ABG Base Excess ABG Hemoglobin Oxyhemoglobin Sodium 136 L Potassium Chloride 97.0 L Carbon Dioxide BUN 58 H Creatinine 7.3 H Glucose POC Glucose 106 H Lactic Acid Calcium 7.5 L Ionized Calcium Phosphorus 5.80 H D Magnesium Iron TIBC Ferritin Total Bilirubin Direct Bilirubin AST ALT Alkaline Phosphatase Total Creatine Kinase CK-MB (CK-2) Troponin T C-Reactive Protein Total Protein Albumin Triglycerides LDL Cholesterol Direct HDL Cholesterol Free T4 PTH Intact Urine WBC (Auto) Urine Creatinine Salicylates Acetaminophen Crossmatch 04/03/19 04/04/19 04/04/19 23:43 04:47 04:47 WBC RBC 2.72 L Hgb 8.3 L Hct 24.7 L MCV MCHC RDW 15.6 H Plt Count Lymph % (Auto) [place] % (Auto) 10.1 H Lymph # 0.8 L [place] # Seg Neutrophils % 71.4 H Seg Neuts % (Manual) Lymphocytes % (Manual) Monocytes % (Manual) Nucleated RBC % Seg Neutrophils # Seg Neutrophils # Man Lymphocytes # (Manual) Monocytes # (Manual) PT INR D-Dimer Heparin Anti-Xa Level POC ABG pH ABG pH POC ABG pCO2 POC ABG pO2 ABG pO2 123.8 H ABG HCO3 ABG O2 Saturation ABG Base Excess -3.0 L ABG Hemoglobin 7.9 L Oxyhemoglobin Sodium 134 L Potassium Chloride 97.9 L Carbon Dioxide BUN 64 H Creatinine 8.1 H Glucose POC Glucose Lactic Acid Calcium 7.2 L Ionized Calcium Phosphorus Magnesium Iron TIBC Ferritin Total Bilirubin Direct Bilirubin AST ALT Alkaline Phosphatase Total Creatine Kinase CK-MB (CK-2) Troponin T C-Reactive Protein Total Protein Albumin Triglycerides LDL Cholesterol Direct HDL Cholesterol Free T4 PTH Intact Urine WBC (Auto) Urine Creatinine Salicylates Acetaminophen Crossmatch 04/04/19 04/04/19 04/04/19 06:07 13:40 18:18 WBC RBC Hgb Hct MCV MCHC RDW Plt Count Lymph % (Auto) [place] % (Auto) Lymph # [place] # Seg Neutrophils % Seg Neuts % (Manual) Lymphocytes % (Manual) Monocytes % (Manual) Nucleated RBC % Seg Neutrophils # Seg Neutrophils # Man Lymphocytes # (Manual) Monocytes # (Manual) PT INR D-Dimer Heparin Anti-Xa Level POC ABG pH ABG pH POC ABG pCO2 POC ABG pO2 ABG pO2 95.9 H ABG HCO3 ABG O2 Saturation ABG Base Excess -3.0 L ABG Hemoglobin 8.5 L Oxyhemoglobin Sodium Potassium Chloride Carbon Dioxide BUN Creatinine Glucose POC Glucose 107 H 107 H Lactic Acid Calcium Ionized Calcium Phosphorus Magnesium Iron TIBC Ferritin Total Bilirubin Direct Bilirubin AST ALT Alkaline Phosphatase Total Creatine Kinase CK-MB (CK-2) Troponin T C-Reactive Protein Total Protein Albumin Triglycerides LDL Cholesterol Direct HDL Cholesterol Free T4 PTH Intact Urine WBC (Auto) Urine Creatinine Salicylates Acetaminophen Crossmatch 04/04/19 04/05/19 04/05/19 21:22 04:09 04:09 WBC RBC 2.76 L Hgb 8.4 L Hct 25.4 L MCV MCHC RDW 15.8 H Plt Count 133 L Lymph % (Auto) [place] % (Auto) 9.6 H Lymph # 0.7 L [place] # Seg Neutrophils % 72.6 H Seg Neuts % (Manual) Lymphocytes % (Manual) Monocytes % (Manual) Nucleated RBC % Seg Neutrophils # Seg Neutrophils # Man Lymphocytes # (Manual) Monocytes # (Manual) PT INR D-Dimer Heparin Anti-Xa Level POC ABG pH ABG pH POC ABG pCO2 47.2 H POC ABG pO2 137 H ABG pO2 ABG HCO3 ABG O2 Saturation ABG Base Excess ABG Hemoglobin Oxyhemoglobin Sodium 136 L Potassium Chloride Carbon Dioxide BUN 46 H Creatinine 6.7 H Glucose POC Glucose Lactic Acid Calcium 7.7 L Ionized Calcium Phosphorus Magnesium Iron TIBC Ferritin Total Bilirubin Direct Bilirubin AST ALT Alkaline Phosphatase Total Creatine Kinase CK-MB (CK-2) Troponin T C-Reactive Protein Total Protein Albumin Triglycerides LDL Cholesterol Direct HDL Cholesterol Free T4 PTH Intact Urine WBC (Auto) Urine Creatinine Salicylates Acetaminophen Crossmatch 04/05/19 04/05/19 04/05/19 05:28 06:14 16:50 WBC RBC Hgb Hct MCV MCHC RDW Plt Count Lymph % (Auto) [place] % (Auto) Lymph # [place] # Seg Neutrophils % Seg Neuts % (Manual) Lymphocytes % (Manual) Monocytes % (Manual) Nucleated RBC % Seg Neutrophils # Seg Neutrophils # Man Lymphocytes # (Manual) Monocytes # (Manual) PT INR D-Dimer Heparin Anti-Xa Level POC ABG pH ABG pH POC ABG pCO2 POC ABG pO2 67 L ABG pO2 ABG HCO3 ABG O2 Saturation ABG Base Excess ABG Hemoglobin Oxyhemoglobin Sodium Potassium Chloride Carbon Dioxide BUN Creatinine Glucose POC Glucose 108 H Lactic Acid Calcium Ionized Calcium Phosphorus Magnesium Iron TIBC Ferritin Total Bilirubin Direct Bilirubin AST ALT Alkaline Phosphatase Total Creatine Kinase CK-MB (CK-2) Troponin T C-Reactive Protein Total Protein Albumin Triglycerides LDL Cholesterol Direct HDL Cholesterol Free T4 PTH Intact Urine WBC (Auto) 40.0 H Urine Creatinine Salicylates Acetaminophen Crossmatch 04/05/19 04/06/19 04/06/19 17:22 00:13 04:44 WBC RBC 2.48 L Hgb 7.5 L Hct 22.9 L MCV MCHC RDW 16.0 H Plt Count 107 L Lymph % (Auto) [place] % (Auto) 10.7 H Lymph # 1.0 L [place] # Seg Neutrophils % Seg Neuts % (Manual) Lymphocytes % (Manual) Monocytes % (Manual) Nucleated RBC % Seg Neutrophils # Seg Neutrophils # Man Lymphocytes # (Manual) Monocytes # (Manual) PT INR D-Dimer Heparin Anti-Xa Level POC ABG pH ABG pH POC ABG pCO2 POC ABG pO2 ABG pO2 ABG HCO3 ABG O2 Saturation ABG Base Excess ABG Hemoglobin Oxyhemoglobin Sodium Potassium Chloride Carbon Dioxide BUN Creatinine Glucose POC Glucose 118 H 138 H Lactic Acid Calcium Ionized Calcium Phosphorus Magnesium Iron TIBC Ferritin Total Bilirubin Direct Bilirubin AST ALT Alkaline Phosphatase Total Creatine Kinase CK-MB (CK-2) Troponin T C-Reactive Protein Total Protein Albumin Triglycerides LDL Cholesterol Direct HDL Cholesterol Free T4 PTH Intact Urine WBC (Auto) Urine Creatinine Salicylates Acetaminophen Crossmatch 04/06/19 04/06/19 04/06/19 04:44 05:20 05:23 WBC RBC Hgb Hct MCV MCHC RDW Plt Count Lymph % (Auto) [place] % (Auto) Lymph # [place] # Seg Neutrophils % Seg Neuts % (Manual) Lymphocytes % (Manual) Monocytes % (Manual) Nucleated RBC % Seg Neutrophils # Seg Neutrophils # Man Lymphocytes # (Manual) Monocytes # (Manual) PT INR D-Dimer Heparin Anti-Xa Level POC ABG pH ABG pH POC ABG pCO2 POC ABG pO2 ABG pO2 104.0 H ABG HCO3 ABG O2 Saturation ABG Base Excess -2.1 L ABG Hemoglobin 7.3 L Oxyhemoglobin Sodium Potassium Chloride Carbon Dioxide BUN 64 H Creatinine 8.2 H Glucose 103 H POC Glucose 118 H Lactic Acid Calcium 7.3 L Ionized Calcium Phosphorus Magnesium Iron TIBC Ferritin Total Bilirubin Direct Bilirubin AST ALT Alkaline Phosphatase Total Creatine Kinase CK-MB (CK-2) Troponin T C-Reactive Protein Total Protein Albumin Triglycerides LDL Cholesterol Direct HDL Cholesterol Free T4 PTH Intact Urine WBC (Auto) Urine Creatinine Salicylates Acetaminophen Crossmatch 04/06/19 04/07/19 04/07/19 12:02 05:40 05:40 WBC RBC 2.59 L Hgb 7.9 L Hct 23.8 L MCV MCHC RDW 15.8 H Plt Count 89 L Lymph % (Auto) [place] % (Auto) 10.3 H Lymph # 1.1 L [place] # Seg Neutrophils % Seg Neuts % (Manual) Lymphocytes % (Manual) Monocytes % (Manual) Nucleated RBC % Seg Neutrophils # Seg Neutrophils # Man Lymphocytes # (Manual) Monocytes # (Manual) PT INR D-Dimer Heparin Anti-Xa Level POC ABG pH ABG pH POC ABG pCO2 POC ABG pO2 ABG pO2 ABG HCO3 ABG O2 Saturation ABG Base Excess ABG Hemoglobin Oxyhemoglobin Sodium 136 L Potassium 3.5 L Chloride Carbon Dioxide BUN 46 H Creatinine 6.2 H Glucose POC Glucose 108 H Lactic Acid Calcium 7.9 L Ionized Calcium Phosphorus Magnesium Iron TIBC Ferritin Total Bilirubin Direct Bilirubin AST ALT Alkaline Phosphatase Total Creatine Kinase CK-MB (CK-2) Troponin T C-Reactive Protein Total Protein Albumin Triglycerides LDL Cholesterol Direct HDL Cholesterol Free T4 PTH Intact Urine WBC (Auto) Urine Creatinine Salicylates Acetaminophen Crossmatch 04/07/19 04/09/19 04/09/19 12:57 04:28 04:28 WBC RBC 2.85 L Hgb 8.7 L Hct 26.2 L MCV MCHC RDW 15.6 H Plt Count Lymph % (Auto) [place] % (Auto) 10.4 H Lymph # 1.0 L [place] # Seg Neutrophils % 73.3 H Seg Neuts % (Manual) Lymphocytes % (Manual) Monocytes % (Manual) Nucleated RBC % Seg Neutrophils # Seg Neutrophils # Man Lymphocytes # (Manual) Monocytes # (Manual) PT INR D-Dimer Heparin Anti-Xa Level POC ABG pH ABG pH POC ABG pCO2 POC ABG pO2 107 H ABG pO2 ABG HCO3 ABG O2 Saturation ABG Base Excess ABG Hemoglobin Oxyhemoglobin Sodium Potassium 3.5 L Chloride 97.8 L Carbon Dioxide BUN 62 H Creatinine 8.1 H Glucose POC Glucose Lactic Acid Calcium 8.2 L Ionized Calcium Phosphorus 5.10 H Magnesium Iron TIBC Ferritin Total Bilirubin Direct Bilirubin AST ALT Alkaline Phosphatase Total Creatine Kinase CK-MB (CK-2) Troponin T C-Reactive Protein Total Protein Albumin Triglycerides LDL Cholesterol Direct HDL Cholesterol Free T4 PTH Intact Urine WBC (Auto) Urine Creatinine Salicylates Acetaminophen Crossmatch 04/10/19 04/11/19 04/11/19 18:15 00:25 04:16 WBC 11.5 H RBC 2.91 L Hgb 8.9 L Hct 27.6 L MCV 95 H MCHC RDW 17.5 H Plt Count Lymph % (Auto) [place] % (Auto) Lymph # [place] # Seg Neutrophils % Seg Neuts % (Manual) 71.0 H Lymphocytes % (Manual) Monocytes % (Manual) 8.0 H Nucleated RBC % Seg Neutrophils # Seg Neutrophils # Man 8.2 H Lymphocytes # (Manual) Monocytes # (Manual) 0.9 H PT INR D-Dimer Heparin Anti-Xa Level POC ABG pH ABG pH POC ABG pCO2 POC ABG pO2 ABG pO2 ABG HCO3 ABG O2 Saturation ABG Base Excess ABG Hemoglobin Oxyhemoglobin Sodium Potassium Chloride Carbon Dioxide BUN Creatinine Glucose POC Glucose 109 H 114 H Lactic Acid Calcium Ionized Calcium Phosphorus Magnesium Iron TIBC Ferritin Total Bilirubin Direct Bilirubin AST ALT Alkaline Phosphatase Total Creatine Kinase CK-MB (CK-2) Troponin T C-Reactive Protein Total Protein Albumin Triglycerides LDL Cholesterol Direct HDL Cholesterol Free T4 PTH Intact Urine WBC (Auto) Urine Creatinine Salicylates Acetaminophen Crossmatch 04/11/19 04/11/19 04/11/19 06:47 09:21 12:15 WBC RBC Hgb Hct MCV MCHC RDW Plt Count Lymph % (Auto) [place] % (Auto) Lymph # [place] # Seg Neutrophils % Seg Neuts % (Manual) Lymphocytes % (Manual) Monocytes % (Manual) Nucleated RBC % Seg Neutrophils # Seg Neutrophils # Man Lymphocytes # (Manual) Monocytes # (Manual) PT INR D-Dimer Heparin Anti-Xa Level POC ABG pH ABG pH POC ABG pCO2 POC ABG pO2 ABG pO2 ABG HCO3 ABG O2 Saturation ABG Base Excess ABG Hemoglobin Oxyhemoglobin Sodium Potassium 3.5 L Chloride Carbon Dioxide BUN 45 H Creatinine 6.0 H Glucose 113 H POC Glucose 106 H 109 H Lactic Acid Calcium Ionized Calcium Phosphorus Magnesium Iron TIBC Ferritin Total Bilirubin Direct Bilirubin AST ALT Alkaline Phosphatase Total Creatine Kinase CK-MB (CK-2) Troponin T C-Reactive Protein Total Protein Albumin Triglycerides LDL Cholesterol Direct HDL Cholesterol Free T4 PTH Intact Urine WBC (Auto) Urine Creatinine Salicylates Acetaminophen Crossmatch 04/11/19 04/12/19 04/12/19 18:42 12:13 23:52 WBC RBC Hgb Hct MCV MCHC RDW Plt Count Lymph % (Auto) [place] % (Auto) Lymph # [place] # Seg Neutrophils % Seg Neuts % (Manual) Lymphocytes % (Manual) Monocytes % (Manual) Nucleated RBC % Seg Neutrophils # Seg Neutrophils # Man Lymphocytes # (Manual) Monocytes # (Manual) PT INR D-Dimer Heparin Anti-Xa Level POC ABG pH ABG pH POC ABG pCO2 POC ABG pO2 ABG pO2 ABG HCO3 ABG O2 Saturation ABG Base Excess ABG Hemoglobin Oxyhemoglobin Sodium Potassium Chloride Carbon Dioxide BUN Creatinine Glucose POC Glucose 107 H 115 H 124 H Lactic Acid Calcium Ionized Calcium Phosphorus Magnesium Iron TIBC Ferritin Total Bilirubin Direct Bilirubin AST ALT Alkaline Phosphatase Total Creatine Kinase CK-MB (CK-2) Troponin T C-Reactive Protein Total Protein Albumin Triglycerides LDL Cholesterol Direct HDL Cholesterol Free T4 PTH Intact Urine WBC (Auto) Urine Creatinine Salicylates Acetaminophen Crossmatch 04/13/19 04/13/19 04/13/19 05:00 05:00 05:47 WBC 11.7 H RBC 2.97 L Hgb 8.8 L Hct 27.3 L MCV MCHC RDW 16.1 H Plt Count Lymph % (Auto) 9.5 L [place] % (Auto) 9.9 H Lymph # 1.1 L [place] # 1.2 H Seg Neutrophils % 78.6 H Seg Neuts % (Manual) Lymphocytes % (Manual) Monocytes % (Manual) Nucleated RBC % Seg Neutrophils # 9.2 H Seg Neutrophils # Man Lymphocytes # (Manual) Monocytes # (Manual) PT INR D-Dimer Heparin Anti-Xa Level POC ABG pH ABG pH POC ABG pCO2 POC ABG pO2 ABG pO2 ABG HCO3 ABG O2 Saturation ABG Base Excess ABG Hemoglobin Oxyhemoglobin Sodium Potassium 3.5 L Chloride Carbon Dioxide BUN 42 H Creatinine 4.6 H Glucose 106 H POC Glucose 107 H Lactic Acid Calcium 10.6 H D Ionized Calcium Phosphorus 5.90 H Magnesium Iron TIBC Ferritin Total Bilirubin Direct Bilirubin AST ALT Alkaline Phosphatase Total Creatine Kinase CK-MB (CK-2) Troponin T C-Reactive Protein Total Protein 5.8 L Albumin 2.5 L Triglycerides LDL Cholesterol Direct HDL Cholesterol Free T4 PTH Intact Urine WBC (Auto) Urine Creatinine Salicylates Acetaminophen Crossmatch 04/13/19 04/14/19 04/14/19 17:32 00:00 03:55 WBC RBC Hgb Hct MCV MCHC RDW Plt Count Lymph % (Auto) [place] % (Auto) Lymph # [place] # Seg Neutrophils % Seg Neuts % (Manual) Lymphocytes % (Manual) Monocytes % (Manual) Nucleated RBC % Seg Neutrophils # Seg Neutrophils # Man Lymphocytes # (Manual) Monocytes # (Manual) PT INR D-Dimer Heparin Anti-Xa Level POC ABG pH ABG pH POC ABG pCO2 POC ABG pO2 ABG pO2 ABG HCO3 ABG O2 Saturation ABG Base Excess ABG Hemoglobin Oxyhemoglobin Sodium Potassium 3.0 L Chloride Carbon Dioxide BUN 30 H Creatinine 3.1 H Glucose POC Glucose 112 H 120 H Lactic Acid Calcium 10.8 H Ionized Calcium Phosphorus Magnesium Iron TIBC Ferritin Total Bilirubin Direct Bilirubin AST ALT Alkaline Phosphatase Total Creatine Kinase CK-MB (CK-2) Troponin T C-Reactive Protein Total Protein Albumin Triglycerides LDL Cholesterol Direct HDL Cholesterol Free T4 PTH Intact Urine WBC (Auto) Urine Creatinine Salicylates Acetaminophen Crossmatch 04/14/19 04/14/19 04/15/19 11:56 23:28 05:11 WBC 13.0 H RBC 2.93 L Hgb 8.6 L Hct 26.5 L MCV MCHC RDW 16.5 H Plt Count Lymph % (Auto) 12.2 L [place] % (Auto) 9.1 H Lymph # [place] # 1.2 H Seg Neutrophils % 77.6 H Seg Neuts % (Manual) Lymphocytes % (Manual) Monocytes % (Manual) Nucleated RBC % Seg Neutrophils # 10.1 H Seg Neutrophils # Man Lymphocytes # (Manual) Monocytes # (Manual) PT INR D-Dimer Heparin Anti-Xa Level POC ABG pH ABG pH POC ABG pCO2 POC ABG pO2 ABG pO2 ABG HCO3 ABG O2 Saturation ABG Base Excess ABG Hemoglobin Oxyhemoglobin Sodium Potassium Chloride Carbon Dioxide BUN Creatinine Glucose POC Glucose 109 H 112 H Lactic Acid Calcium Ionized Calcium Phosphorus Magnesium Iron TIBC Ferritin Total Bilirubin Direct Bilirubin AST ALT Alkaline Phosphatase Total Creatine Kinase CK-MB (CK-2) Troponin T C-Reactive Protein Total Protein Albumin Triglycerides LDL Cholesterol Direct HDL Cholesterol Free T4 PTH Intact Urine WBC (Auto) Urine Creatinine Salicylates Acetaminophen Crossmatch 04/15/19 04/15/19 04/15/19 05:11 05:31 18:03 WBC RBC Hgb Hct MCV MCHC RDW Plt Count Lymph % (Auto) [place] % (Auto) Lymph # [place] # Seg Neutrophils % Seg Neuts % (Manual) Lymphocytes % (Manual) Monocytes % (Manual) Nucleated RBC % Seg Neutrophils # Seg Neutrophils # Man Lymphocytes # (Manual) Monocytes # (Manual) PT INR D-Dimer Heparin Anti-Xa Level POC ABG pH ABG pH POC ABG pCO2 POC ABG pO2 ABG pO2 ABG HCO3 ABG O2 Saturation ABG Base Excess ABG Hemoglobin Oxyhemoglobin Sodium Potassium 3.2 L Chloride Carbon Dioxide BUN 44 H Creatinine 3.6 H Glucose 106 H POC Glucose 110 H 121 H Lactic Acid Calcium 12.0 H Ionized Calcium Phosphorus 5.00 H Magnesium Iron TIBC Ferritin Total Bilirubin Direct Bilirubin AST ALT Alkaline Phosphatase Total Creatine Kinase CK-MB (CK-2) Troponin T C-Reactive Protein Total Protein Albumin Triglycerides LDL Cholesterol Direct HDL Cholesterol Free T4 PTH Intact Urine WBC (Auto) Urine Creatinine Salicylates Acetaminophen Crossmatch 04/16/19 04/16/19 04/17/19 05:07 05:07 04:15 WBC 12.6 H RBC 3.12 L Hgb 9.0 L Hct 28.2 L MCV MCHC RDW 16.6 H Plt Count Lymph % (Auto) 10.3 L [place] % (Auto) 9.8 H Lymph # [place] # 1.2 H Seg Neutrophils % 78.2 H Seg Neuts % (Manual) Lymphocytes % (Manual) Monocytes % (Manual) Nucleated RBC % Seg Neutrophils # 9.9 H Seg Neutrophils # Man Lymphocytes # (Manual) Monocytes # (Manual) PT INR D-Dimer Heparin Anti-Xa Level POC ABG pH ABG pH POC ABG pCO2 POC ABG pO2 ABG pO2 ABG HCO3 ABG O2 Saturation ABG Base Excess ABG Hemoglobin Oxyhemoglobin Sodium 147 H 150 H Potassium 3.5 L 3.1 L Chloride Carbon Dioxide 32 H BUN 54 H 65 H Creatinine 3.8 H 4.0 H Glucose 102 H 107 H POC Glucose Lactic Acid Calcium 11.7 H 12.0 H Ionized Calcium Phosphorus 5.40 H Magnesium Iron TIBC Ferritin Total Bilirubin Direct Bilirubin AST ALT Alkaline Phosphatase Total Creatine Kinase CK-MB (CK-2) Troponin T C-Reactive Protein 7.10 H Total Protein Albumin Triglycerides LDL Cholesterol Direct HDL Cholesterol Free T4 PTH Intact Urine WBC (Auto) Urine Creatinine Salicylates Acetaminophen Crossmatch 04/17/19 04/17/19 04/17/19 04:15 06:05 12:49 WBC 15.8 H RBC 3.32 L Hgb 9.5 L Hct 29.9 L MCV MCHC RDW 16.9 H Plt Count Lymph % (Auto) 12.6 L [place] % (Auto) 11.1 H Lymph # [place] # 1.7 H Seg Neutrophils % 74.7 H Seg Neuts % (Manual) Lymphocytes % (Manual) Monocytes % (Manual) Nucleated RBC % Seg Neutrophils # 11.8 H Seg Neutrophils # Man Lymphocytes # (Manual) Monocytes # (Manual) PT INR D-Dimer Heparin Anti-Xa Level POC ABG pH ABG pH POC ABG pCO2 POC ABG pO2 ABG pO2 ABG HCO3 ABG O2 Saturation ABG Base Excess ABG Hemoglobin Oxyhemoglobin Sodium Potassium Chloride Carbon Dioxide BUN Creatinine Glucose POC Glucose 111 H 108 H Lactic Acid Calcium Ionized Calcium Phosphorus Magnesium Iron TIBC Ferritin Total Bilirubin Direct Bilirubin AST ALT Alkaline Phosphatase Total Creatine Kinase CK-MB (CK-2) Troponin T C-Reactive Protein Total Protein Albumin Triglycerides LDL Cholesterol Direct HDL Cholesterol Free T4 PTH Intact Urine WBC (Auto) Urine Creatinine Salicylates Acetaminophen Crossmatch 04/18/19 04/18/19 04/18/19 00:23 04:41 04:41 WBC 19.4 H RBC 3.03 L Hgb 8.6 L Hct 27.5 L MCV MCHC 31 L RDW 16.9 H Plt Count Lymph % (Auto) [place] % (Auto) Lymph # [place] # Seg Neutrophils % Seg Neuts % (Manual) Lymphocytes % (Manual) Monocytes % (Manual) Nucleated RBC % Seg Neutrophils # Seg Neutrophils # Man Lymphocytes # (Manual) Monocytes # (Manual) PT INR D-Dimer Heparin Anti-Xa Level POC ABG pH ABG pH POC ABG pCO2 POC ABG pO2 ABG pO2 ABG HCO3 ABG O2 Saturation ABG Base Excess ABG Hemoglobin Oxyhemoglobin Sodium 152 H Potassium 3.0 L Chloride Carbon Dioxide BUN 80 H Creatinine 4.3 H Glucose 103 H POC Glucose 115 H Lactic Acid Calcium 11.4 H Ionized Calcium Phosphorus Magnesium Iron TIBC Ferritin Total Bilirubin Direct Bilirubin AST ALT Alkaline Phosphatase Total Creatine Kinase CK-MB (CK-2) Troponin T C-Reactive Protein Total Protein Albumin Triglycerides LDL Cholesterol Direct HDL Cholesterol Free T4 PTH Intact Urine WBC (Auto) Urine Creatinine Salicylates Acetaminophen Crossmatch 04/18/19 04/18/19 04/18/19 06:17 12:16 18:10 WBC RBC Hgb Hct MCV MCHC RDW Plt Count Lymph % (Auto) [place] % (Auto) Lymph # [place] # Seg Neutrophils % Seg Neuts % (Manual) Lymphocytes % (Manual) Monocytes % (Manual) Nucleated RBC % Seg Neutrophils # Seg Neutrophils # Man Lymphocytes # (Manual) Monocytes # (Manual) PT INR D-Dimer Heparin Anti-Xa Level POC ABG pH ABG pH POC ABG pCO2 POC ABG pO2 ABG pO2 ABG HCO3 ABG O2 Saturation ABG Base Excess ABG Hemoglobin Oxyhemoglobin Sodium Potassium Chloride Carbon Dioxide BUN Creatinine Glucose POC Glucose 124 H 119 H 111 H Lactic Acid Calcium Ionized Calcium Phosphorus Magnesium Iron TIBC Ferritin Total Bilirubin Direct Bilirubin AST ALT Alkaline Phosphatase Total Creatine Kinase CK-MB (CK-2) Troponin T C-Reactive Protein Total Protein Albumin Triglycerides LDL Cholesterol Direct HDL Cholesterol Free T4 PTH Intact Urine WBC (Auto) Urine Creatinine Salicylates Acetaminophen Crossmatch 04/19/19 04/19/19 04/20/19 03:49 05:27 09:09 WBC RBC Hgb Hct MCV MCHC RDW Plt Count Lymph % (Auto) [place] % (Auto) Lymph # [place] # Seg Neutrophils % Seg Neuts % (Manual) Lymphocytes % (Manual) Monocytes % (Manual) Nucleated RBC % Seg Neutrophils # Seg Neutrophils # Man Lymphocytes # (Manual) Monocytes # (Manual) PT INR D-Dimer Heparin Anti-Xa Level POC ABG pH ABG pH POC ABG pCO2 POC ABG pO2 ABG pO2 ABG HCO3 ABG O2 Saturation ABG Base Excess ABG Hemoglobin Oxyhemoglobin Sodium 147 H 150 H Potassium 3.3 L Chloride 108.9 H Carbon Dioxide BUN 45 H 70 H Creatinine 2.9 H 4.1 H Glucose 105 H POC Glucose 124 H Lactic Acid Calcium 10.6 H 11.6 H Ionized Calcium Phosphorus Magnesium Iron TIBC Ferritin Total Bilirubin Direct Bilirubin AST ALT Alkaline Phosphatase Total Creatine Kinase CK-MB (CK-2) Troponin T C-Reactive Protein Total Protein Albumin Triglycerides LDL Cholesterol Direct HDL Cholesterol Free T4 PTH Intact Urine WBC (Auto) Urine Creatinine Salicylates Acetaminophen Crossmatch 04/20/19 04/20/19 04/21/19 12:29 18:45 01:34 WBC RBC Hgb Hct MCV MCHC RDW Plt Count Lymph % (Auto) [place] % (Auto) Lymph # [place] # Seg Neutrophils % Seg Neuts % (Manual) Lymphocytes % (Manual) Monocytes % (Manual) Nucleated RBC % Seg Neutrophils # Seg Neutrophils # Man Lymphocytes # (Manual) Monocytes # (Manual) PT INR D-Dimer Heparin Anti-Xa Level POC ABG pH ABG pH POC ABG pCO2 POC ABG pO2 ABG pO2 ABG HCO3 ABG O2 Saturation ABG Base Excess ABG Hemoglobin Oxyhemoglobin Sodium Potassium Chloride Carbon Dioxide BUN 40 H Creatinine 2.6 H Glucose 104 H POC Glucose 131 H 134 H Lactic Acid Calcium 11.0 H Ionized Calcium Phosphorus Magnesium Iron TIBC Ferritin Total Bilirubin Direct Bilirubin AST ALT Alkaline Phosphatase Total Creatine Kinase CK-MB (CK-2) Troponin T C-Reactive Protein Total Protein Albumin Triglycerides LDL Cholesterol Direct HDL Cholesterol Free T4 PTH Intact Urine WBC (Auto) Urine Creatinine Salicylates Acetaminophen Crossmatch 04/21/19 04/22/19 04/22/19 04:22 04:24 04:24 WBC 14.2 H 14.3 H RBC 3.02 L 3.57 L Hgb 8.7 L 10.1 L Hct 27.2 L 32.1 L MCV MCHC RDW 16.7 H 17.2 H Plt Count Lymph % (Auto) [place] % (Auto) Lymph # [place] # Seg Neutrophils % Seg Neuts % (Manual) Lymphocytes % (Manual) Monocytes % (Manual) Nucleated RBC % Seg Neutrophils # Seg Neutrophils # Man Lymphocytes # (Manual) Monocytes # (Manual) PT INR D-Dimer Heparin Anti-Xa Level POC ABG pH ABG pH POC ABG pCO2 POC ABG pO2 ABG pO2 ABG HCO3 ABG O2 Saturation ABG Base Excess ABG Hemoglobin Oxyhemoglobin Sodium Potassium Chloride Carbon Dioxide BUN 54 H Creatinine 3.5 H Glucose POC Glucose Lactic Acid Calcium 11.4 H Ionized Calcium Phosphorus Magnesium Iron TIBC Ferritin Total Bilirubin Direct Bilirubin AST ALT Alkaline Phosphatase Total Creatine Kinase CK-MB (CK-2) Troponin T C-Reactive Protein Total Protein Albumin Triglycerides LDL Cholesterol Direct HDL Cholesterol Free T4 PTH Intact Urine WBC (Auto) Urine Creatinine Salicylates Acetaminophen Crossmatch 04/22/19 04/22/19 06:37 11:57 WBC RBC Hgb Hct MCV MCHC RDW Plt Count Lymph % (Auto) [place] % (Auto) Lymph # [place] # Seg Neutrophils % Seg Neuts % (Manual) Lymphocytes % (Manual) Monocytes % (Manual) Nucleated RBC % Seg Neutrophils # Seg Neutrophils # Man Lymphocytes # (Manual) Monocytes # (Manual) PT INR D-Dimer Heparin Anti-Xa Level POC ABG pH ABG pH POC ABG pCO2 POC ABG pO2 ABG pO2 ABG HCO3 ABG O2 Saturation ABG Base Excess ABG Hemoglobin Oxyhemoglobin Sodium Potassium Chloride Carbon Dioxide BUN Creatinine Glucose POC Glucose 113 H 110 H Lactic Acid Calcium Ionized Calcium Phosphorus Magnesium Iron TIBC Ferritin Total Bilirubin Direct Bilirubin AST ALT Alkaline Phosphatase Total Creatine Kinase CK-MB (CK-2) Troponin T C-Reactive Protein Total Protein Albumin Triglycerides LDL Cholesterol Direct HDL Cholesterol Free T4 PTH Intact Urine WBC (Auto) Urine Creatinine Salicylates Acetaminophen Crossmatch Allied health notes reviewed: nursing
[2019-04-23 05:07] LABS: Basophils # (Auto) 0.1 K/mm3 (0.0-0.1); Basophils % (Auto) 0.3 % (0.0-1.8); Eosinophils # (Auto) 0.2 K/mm3 (0.0-0.4); Eosinophils % (Auto) 1.1 % (0.0-4.3); Hematocrit 30.8 % (35.5-45.6); Hemoglobin 9.8 gm/dl (11.8-15.2); Lymphocytes # (Auto) 1.6 K/mm3 (1.2-5.4); Lymphocytes % (Auto) 9.9 % (13.4-35.0); Mean Corpuscular HGB Conc 32 % (32-34); Mean Corpuscular Volume 92 fl (84-94); Monocytes # (Auto) 0.7 K/mm3 (0.0-0.8); Monocytes % (Auto) 4.5 % (0.0-7.3); Platelet Count 293 K/mm3 (140-440); Red Blood Count 3.36 M/mm3 (3.65-5.03); Red Cell Distribution Width 17.7 % (13.2-15.2)
[2019-04-23 05:21] LABS: Albumin 3.2 g/dL (3.9-5)
[2019-04-23 05:26] LABS: Calcium 12.3 mg/dL (8.4-10.2)
[2019-04-23] MEDS: LINEZOLID 600 MG/300 ML BAG IV SCH ×2 (05:59→16:50)
--- NOTE | 2019-04-23 07:56 | Hem/Onc Progress Note ---
Assessment and Plan 1. h/o Anemia. The patient has history of bleeding. 2. rt Internal jugular partial thrombosis. The patient was started on heparin. This has been held due to bleeding 3. Gastrointestinal bleed. 4. h/o Elevated creatinine kinase. 5. h/o Low calcium. 6. h/o Thrombocytopenia. 7. h/o Renal failure. 8. h/o Intubation. 9. s/p Transfusion support. 10. Leukocytosis. At this time, supportive care may help the patient. The patient's platelet was low at admission. Urine toxicology was negative. awake h/o rt IJ dvt - off anticoagulation - due to bleeding platelet - > 100 s/p iv iron trial pt was on BIPAP - then o2 support h/o tachycardia - on meds moving arms>legs left arm swelling -dvt study negative for left arm rt IJ dvt is better - Patient Problems (1) DVT (deep venous thrombosis) Current Visit: Yes Status: Acute Subjective Date of service: 04/23/19 Principal diagnosis: anemia - IJ DVt rt side Interval history: no bleeding Objective - Exam Narrative Exam: Pain - none now General appearance - awake Performance status limited self care Eyes - no icterus ENT - extubated LNs cervical not palpable Neck - no LN Respiratory Normal Breath sounds - CTA anteriorly CVS S1 S2 + Extremities edema + General GI Soft Rectal deferred male - deferred Skin warm Musculoskeletal arms>legs Neurologically awake - Constitutional Vitals: Last Vital Signs Temp 98.3 F 04/23/19 04:00 Pulse 88 04/23/19 06:00 Resp 6 L 04/23/19 06:00 BP 134/81 04/23/19 06:00 Pulse Ox 97 04/23/19 06:00 - Labs Lab Results: Laboratory Results - last 24 hr 04/22/19 04/22/19 04/23/19 11:57 18:33 00:38 WBC RBC Hgb Hct MCV MCH MCHC RDW Plt Count Lymph % (Auto) [place] % (Auto) Eos % (Auto) Baso % (Auto) Lymph # [place] # Eos # Baso # Seg Neutrophils % Seg Neutrophils # Sodium Potassium Chloride Carbon Dioxide Anion Gap BUN Creatinine Estimated GFR BUN/Creatinine Ratio Glucose POC Glucose 110 H 120 H 102 Calcium Phosphorus Total Bilirubin AST ALT Alkaline Phosphatase Total Protein Albumin Albumin/Globulin Ratio 04/23/19 04/23/19 04/23/19 04:06 04:06 05:37 WBC 16.1 H RBC 3.36 L Hgb 9.8 L Hct 30.8 L MCV 92 MCH 29 MCHC 32 RDW 17.7 H Plt Count 293 Lymph % (Auto) 9.9 L [place] % (Auto) 4.5 Eos % (Auto) 1.1 Baso % (Auto) 0.3 Lymph # 1.6 [place] # 0.7 Eos # 0.2 Baso # 0.1 Seg Neutrophils % 84.2 H Seg Neutrophils # 13.6 H Sodium 140 Potassium 4.2 Chloride 98.4 Carbon Dioxide 27 Anion Gap 19 BUN 59 H Creatinine 3.8 H Estimated GFR 17 BUN/Creatinine Ratio 16 Glucose 87 POC Glucose 85 Calcium 12.3 H* Phosphorus 5.70 H Total Bilirubin 0.50 AST 30 ALT 43 Alkaline Phosphatase 60 Total Protein 7.2 Albumin 3.2 L Albumin/Globulin Ratio 0.8 Medications & Allergies - Medications Allergies/Adverse Reactions: Allergies No Known Allergies Allergy (Unverified 03/16/19 17:17) Home Medications: Home Medications Medication Instructions Recorded Confirmed Last Taken Type Unobtainable 03/18/19 04/20/19 Unknown History Active Medications: Generic Name Dose Route Start Last Admin Trade Name Freq PRN Reason Stop Dose Admin Acetaminophen 650 mg 04/02/19 23:26 04/21/19 20:29 Tylenol PO 650 mg Q4H PRN Administration Pain, Mild (1-3),temp>100.5 Albuterol 2.5 mg 03/29/19 13:08 Proventil IH Q4HRT PRN Shortness Of Breath Amiodarone HCl 200 mg 04/15/19 22:00 04/22/19 22:54 Cordarone PO 200 mg BID PAOLO Administration Lipase/Protease/Amylase 1 each 04/20/19 13:17 Pancrekarly [place] 10,500 Unit FEEDTUBE PRN PRN For Clogged Feeding Tube Bacitracin 1 applic 04/17/19 08:00 Antibiotic Oint TP Q4H PRN upper lip sore/open Dextrose 50 gm 04/17/19 08:00 D50w (25gm) Vial IV Q1H PRN Hypoglycemia Epoetin Jet 20,000 unit 03/31/19 10:15 04/20/19 12:47 Procrit SUB-Q 20,000 unit NEYMAR PRN Administration hemodialysis Hydralazine HCl 20 mg 04/14/19 03:00 04/14/19 03:11 Apresoline IV 20 mg Q4H PRN Administration hypertemsion Hydrophilic Ointment 1 applic 03/16/19 15:50 04/19/19 18:24 Vaseline Lip Therapy TP 1 applic Q2HR PRN Administration Dry Lips Aztreonam 2 gm in 100 mls @ 100 mls/hr 04/17/19 18:00 04/22/19 10:03 Azactam/Ns 2 Gm/100 Ml IV 100 mls/hr Q24HR PAOLO Administration Protocol Linezolid 600 mg in 300 mls @ 300 mls/hr 04/17/19 17:00 04/23/19 05:59 Zyvox 600mg/300ml IV 300 mls/hr Q12H PAOLO Administration Protocol Sodium Chloride 100 mls @ 999 mls/hr 04/20/19 08:41 Nacl 0.9% IV NEYMAR PRN Hypotension Lansoprazole 30 mg 04/11/19 10:00 04/22/19 22:54 Prevacid Solutab FEEDTUBE 30 mg BID PAOLO Administration Metoprolol Tartrate 5 mg 04/16/19 22:24 04/22/19 00:20 Lopressor IV 5 mg Q6H PRN Administration For HR >120 Metoprolol Tartrate 25 mg 04/17/19 20:00 04/22/19 20:33 Lopressor PO 25 mg TID PAOLO Administration Multi-Ingred Cream/Lotion/Oil/Oint 1 applic 03/16/19 15:50 03/19/19 20:10 Artificial Tears Ophth Oint OU 1 applic Q4HR PRN Administration Dry Eye(s) Simple Syrup 15 ml 04/20/19 13:17 Simple Syrup FEEDTUBE PRN PRN Hypoglycemia Simple Syrup 30 ml 04/20/19 13:29 Simple Syrup FEEDTUBE PRN PRN Hypoglycemia Sodium Bicarbonate 325 mg 04/20/19 13:17 Sodium Bicarbonate FEEDTUBE PRN PRN For Clogged Feeding Tube Sodium Hypochlorite 1 applic 04/18/19 11:00 04/22/19 22:55 Dakin's Half Strength TP 1 applicatio BID PAOLO Administration
--- NOTE | 2019-04-23 08:35 | Progress Note ---
Assessment and Plan Patient is a 43-year-old man with history of GERD, obesity and mental illness, who presented to [facility] ED on 03/16/2019 with altered mental status. He is visiting from [place] and was brought in by his friend. As per records per family he has been homeless [address]. When he came to the ER, he was unable to speak or follow commands, in the ER he was found to have SVT with heart rate in the 250s. The patient was shocked and medicated. Also was confused, and had trouble protecting his airway; therefore, he was then intubated. He has had a prolonged hospital course. During this hospital course, he was found to have sepsis with septic shock, acute resp failure, rhabdomyolysis, RUBEN, and multisystem organ failure, toxic metabolic encephalopathy. He was started on hemodialysis-still getting dialysis. patient is much improved. Still has recurrent fever, followed by ID Physician. Patient now on Azactam, Zyvox. He passed his swallow test started on mechanical soft diet today 04/21/19. Acute hypoxic respiratory failure. Was intubated, now extubated. Now on Room air. Continue BiPAP as clinically indicated. Atrial fibrillation. Continue Metoprolol. Cardiology following. No systemic AC regarding AFib in setting of anemia, thrombocytopenia, GI bleed. Acute blood loss anemia. Patient with GI bleed secondary to peptic ulcer disease. EGD completed per GI. Continue PRBCs as needed. GI bleed/peptic ulcer disease. Continue PPI. Transfuse PRBCs as needed. Sepsis/septic shock. Continue antibiotics per ID. Now on Zyvox and Azactam Fever, recurrent ID following Ischemic hepatitis/shock liver. Elevated LFTs improved. Viral hepatitis panel negative. Acute kidney injury. Patient still on hemodialysis. Patient was started on hemodialysis on 03/18/19 due to worsening metabolic acidosis and hyperkalemia. Baseline renal function is unknown. CT abdomen was negative for obstructive nephropathy. Avoid nephrotoxic agents. Continue hemodialysis per nephrology. Toxic metabolic encephalopathy. Brain MRI showed no acute intracranial abnormality, mild nonspecific chronic white matter changes, fluid throughout the sinuses and mastoid air cells. Swelling both upper ext L>R Doppler US : no DVT LUE Hypokalemia. CorretedReplete potassium as needed. Hypernatremia. Bumex was stopped. Follow-up BMP Nephrology following Now resolved Na 141 today Thrombocytopenia. Etiology likely secondary to sepsis. Resolved. Rhabdomyolysis. CK normalized. Full code status Subjective Date of service: 04/23/19 Principal diagnosis: Acute respr failure, Afib, Aspr Pneumonia, anemia - IJ DVt rt side Interval history: pt seen and examine. No new complaint, Lying quietly in bed. Still Leukocytotic Objective - Exam Narrative Exam: Constitutional: Well-nourished well-developed. In no distress Head: Normocephalic atraumatic Eyes: Pupils are equal round and reactive to light Nose: No enlarged turbinates, no septal deviation. Mouth: Moist mucous membranes. Neck: Supple no thyromegaly. No bruit. No JVD Heart: Irregularly irregular. No rubs murmurs or gallop Lungs: Clear to auscultation bilaterally. no rales or rhonchi Abdomen: Soft, nontender. Bowel sound are present. Extremities: No edema, no cyanosis, no clubbing. Neuro: Alert oriented Oriented x3. No focal sensory or motor deficit. Skin: No rashes or hyperpigmented spots Musculoskeletal system: No joint pain or swelling Hematological: No petechia or subcutanous hemorrhages. Immunological: No multiple septic spots on the skin Lymphatic: No generalized lymphadenopathy Psychiatry: mildy confusd. Euthymic. Calm. - Constitutional Vitals: Vital Signs - 12hr 04/22/19 04/22/19 04/22/19 20:33 21:00 21:14 Temperature Pulse Rate 81 84 Pulse Rate [ From Monitor] Respiratory 12 Rate Blood Pressure 122/74 122/74 O2 Sat by Pulse 98 98 Oximetry 04/22/19 04/22/19 04/23/19 22:00 23:00 00:00 Temperature 98.9 F Pulse Rate 75 77 80 Pulse Rate [ 80 From Monitor] Respiratory 18 22 17 Rate Blood Pressure 134/91 130/67 121/66 O2 Sat by Pulse 98 98 97 Oximetry 04/23/19 04/23/19 04/23/19 01:00 02:00 03:00 Temperature Pulse Rate 81 81 83 Pulse Rate [ From Monitor] Respiratory 15 20 15 Rate Blood Pressure 116/71 128/84 128/84 O2 Sat by Pulse Oximetry 04/23/19 04/23/19 04/23/19 04:00 05:00 06:00 Temperature 98.3 F Pulse Rate 84 85 88 Pulse Rate [ 84 From Monitor] Respiratory 31 H 13 6 L Rate Blood Pressure 134/81 134/81 134/81 O2 Sat by Pulse 97 97 97 Oximetry - Labs CBC & Chem 7: 04/23/19 04:06 04/23/19 04:06 Labs: Abnormal lab results 04/22/19 04/22/19 04/23/19 Range/Units 11:57 18:33 04:06 WBC 16.1 H (4.5-11.0) K/mm3 RBC 3.36 L (3.65-5.03) M/mm3 Hgb 9.8 L (11.8-15.2) gm/dl Hct 30.8 L (35.5-45.6) % RDW 17.7 H (13.2-15.2) % Lymph % (Auto) 9.9 L (13.4-35.0) % Seg Neutrophils % 84.2 H (40.0-70.0) % Seg Neutrophils # 13.6 H (1.8-7.7) K/mm3 BUN (9-20) mg/dL Creatinine (0.8-1.5) mg/dL POC Glucose 110 H 120 H (70-105) Calcium (8.4-10.2) mg/dL Phosphorus (2.5-4.5) mg/dL Albumin (3.9-5) g/dL 04/23/19 Range/Units 04:06 WBC (4.5-11.0) K/mm3 RBC (3.65-5.03) M/mm3 Hgb (11.8-15.2) gm/dl Hct (35.5-45.6) % RDW (13.2-15.2) % Lymph % (Auto) (13.4-35.0) % Seg Neutrophils % (40.0-70.0) % Seg Neutrophils # (1.8-7.7) K/mm3 BUN 59 H (9-20) mg/dL Creatinine 3.8 H (0.8-1.5) mg/dL POC Glucose (70-105) Calcium 12.3 H* (8.4-10.2) mg/dL Phosphorus 5.70 H (2.5-4.5) mg/dL Albumin 3.2 L (3.9-5) g/dL
[2019-04-23] MEDS: METOPROLOL TARTRATE 25 MG TAB PO SCH ×3 (08:49→21:21)
[2019-04-23] MEDS: AMIODARONE 200 MG TAB PO SCH ×2 (09:00→21:21)
[2019-04-23] MEDS: LANSOPRAZOLE 30 MG SOLUTAB FEEDTUBE SCH ×2 (09:00→21:22)
[2019-04-23] MEDS: AZTREONAM/NS 2 GM/100 ML 2 GM/100 ML VIAL IV SCH (09:01)
[2019-04-23] MEDS: SODIUM HYPOCHLORITE, DAKIN'S 1/2 STRENGTH (0.25%) 473 ML TOPICAL SOLN TP SCH ×2 (09:01→21:22)
--- NOTE | 2019-04-23 09:24 | Progress Note ---
Assessment and Plan 1. Acute kidney injury: Vasomotor RUBEN in the setting of shock / volume depletion / Rhabdo. Baseline renal function is unknown. CT abdomen was negative for obstructive nephropathy. Patient was started on hemodialysis on 03/18/19 due to worsening metabolic acidosis and hyperkalemia. Monitor renal function. Renal prognosis is guarded. Avoid nephrotoxic agents. Meds dosage based on GFR. Hemodialysis: 03/18, 03/19, 03/20, 03/22, 03/23, 03/24, 03/26, 03/28, 03/29, 03/31, 04/02, 04/04, 04/06, 04/09, 04/11, 04/13, 04/18, 04/20. Monitor for [employer] needs. 2. FEN: Hypokalemia, K level is better. Hypernatremia, monitor. Metabolic acidosis, improved. Volume overload, improving. Hypercalcemia, monitor. Low Ca bath. Monitor lytes. 3. Septic shock: Currently off pressors. Recurrent fever. Per ID recommendation the dialysis catheter was removed on 04/20. 4. Rhabdomyolysis: Improved. 5. A.fib with RVR: On Amiodarone and Metoprolol. Followed by Cards. 6. Respiratory failure: Extubated. 7. Severe anemia: S/p PRBC. On Epogen. 8. Elevated transaminases: Improved. 9. Encephalopathy. Examination: General appearance: well-developed, appears stated age, obese, not in distress HEENT: Atraumatic EYES: Pupils reacting to light Neck: supple Respiratory: faint rales noted Cardiology: regular, S1S2 heard, no murmur Gastrointestinal: obese, BS heard, not tender Integumentary: no rash noted Neurologic: alert, follows command, conversing, oriented Ext: L UE edema is better Hemodialysis access: None Subjective Date of service: 04/23/19 Principal diagnosis: Acute respr failure, Afib, Aspr Pneumonia, anemia - IJ DVt rt side Interval history: Patient was seen and examined at the bedside. Doing ok. Objective - Vital Signs Vital signs: Vital Signs - 12hr 04/22/19 04/22/19 04/23/19 22:00 23:00 00:00 Temperature 98.9 F Pulse Rate 75 77 80 Pulse Rate [ 80 From Monitor] Respiratory 18 22 17 Rate Blood Pressure 134/91 130/67 121/66 O2 Sat by Pulse 98 98 97 Oximetry 04/23/19 04/23/19 04/23/19 01:00 02:00 03:00 Temperature Pulse Rate 81 81 83 Pulse Rate [ From Monitor] Respiratory 15 20 15 Rate Blood Pressure 116/71 128/84 128/84 O2 Sat by Pulse Oximetry 04/23/19 04/23/19 04/23/19 04:00 05:00 06:00 Temperature 98.3 F Pulse Rate 84 85 88 Pulse Rate [ 84 From Monitor] Respiratory 31 H 13 6 L Rate Blood Pressure 134/81 134/81 134/81 O2 Sat by Pulse 97 97 97 Oximetry 04/23/19 08:49 Temperature Pulse Rate 88 Pulse Rate [ From Monitor] Respiratory Rate Blood Pressure 141/93 O2 Sat by Pulse Oximetry - Lab 04/23/19 04:06 04/23/19 04:06 Most recent lab results ABG pH 7.388 pH Units (7.350-7.450) 04/06/19 05:20 ABG pCO2 38.5 mm Hg 04/06/19 05:20 ABG pO2 104.0 mm Hg (80.0-90.0) H 04/06/19 05:20 ABG HCO3 22.6 mmol/L (20.0-26.0) 04/06/19 05:20 ABG O2 Saturation 97.8 % (95.0-99.0) 04/06/19 05:20 Calcium 12.3 mg/dL (8.4-10.2) H* 04/23/19 04:06 Phosphorus 5.70 mg/dL (2.5-4.5) H 04/23/19 04:06 Magnesium 1.90 mg/dL (1.7-2.3) 03/31/19 15:07 Urine Creatinine 106.6 mg/dL (0.1-20.0) H 03/17/19 16:05 Urine Sodium 95 mmol/L 03/17/19 16:05 Medications & Allergies - Medications Allergies/Adverse Reactions: Allergies No Known Allergies Allergy (Unverified 03/16/19 17:17) Home Medications: Home Medications Medication Instructions Recorded Confirmed Last Taken Type Unobtainable 03/18/19 04/20/19 Unknown History Active Medications: Generic Name Dose Route Start Last Admin Trade Name Freq PRN Reason Stop Dose Admin Acetaminophen 650 mg 04/02/19 23:26 04/21/19 20:29 Tylenol PO 650 mg Q4H PRN Administration Pain, Mild (1-3),temp>100.5 Albuterol 2.5 mg 03/29/19 13:08 Proventil IH Q4HRT PRN Shortness Of Breath Amiodarone HCl 200 mg 04/15/19 22:00 04/23/19 09:00 Cordarone PO 200 mg BID PAOLO Administration Lipase/Protease/Amylase 1 each 04/20/19 13:17 Pancrekarly Purcell 10,500 Unit FEEDTUBE PRN PRN For Clogged Feeding Tube Bacitracin 1 applic 04/17/19 08:00 Antibiotic Oint TP Q4H PRN upper lip sore/open Dextrose 50 gm 04/17/19 08:00 D50w (25gm) Vial IV Q1H PRN Hypoglycemia Epoetin Jet 20,000 unit 03/31/19 10:15 04/20/19 12:47 Procrit SUB-Q 20,000 unit NEYMAR PRN Administration hemodialysis Hydralazine HCl 20 mg 04/14/19 03:00 04/14/19 03:11 Apresoline IV 20 mg Q4H PRN Administration hypertemsion Hydrophilic Ointment 1 applic 03/16/19 15:50 04/19/19 18:24 Vaseline Lip Therapy TP 1 applic Q2HR PRN Administration Dry Lips Aztreonam 2 gm in 100 mls @ 100 mls/hr 04/17/19 18:00 04/23/19 09:01 Azactam/Ns 2 Gm/100 Ml IV 100 mls/hr Q24HR PAOLO Administration Protocol Linezolid 600 mg in 300 mls @ 300 mls/hr 04/17/19 17:00 04/23/19 05:59 Zyvox 600mg/300ml IV 300 mls/hr Q12H PAOLO Administration Protocol Sodium Chloride 100 mls @ 999 mls/hr 04/20/19 08:41 Nacl 0.9% IV NEYMAR PRN Hypotension Lansoprazole 30 mg 04/11/19 10:00 04/23/19 09:00 Prevacid Solutab FEEDTUBE 30 mg BID PAOLO Administration Metoprolol Tartrate 5 mg 04/16/19 22:24 04/22/19 00:20 Lopressor IV 5 mg Q6H PRN Administration For HR >120 Metoprolol Tartrate 25 mg 04/17/19 20:00 04/23/19 08:49 Lopressor PO 25 mg TID PAOLO Administration Multi-Ingred Cream/Lotion/Oil/Oint 1 applic 03/16/19 15:50 03/19/19 20:10 Artificial Tears Ophth Oint OU 1 applic Q4HR PRN Administration Dry Eye(s) Simple Syrup 15 ml 04/20/19 13:17 Simple Syrup FEEDTUBE PRN PRN Hypoglycemia Simple Syrup 30 ml 04/20/19 13:29 Simple Syrup FEEDTUBE PRN PRN Hypoglycemia Sodium Bicarbonate 325 mg 04/20/19 13:17 Sodium Bicarbonate FEEDTUBE PRN PRN For Clogged Feeding Tube Sodium Hypochlorite 1 applic 04/18/19 11:00 04/23/19 09:01 Dakin's Half Strength TP 1 applicatio BID PAOLO Administration
--- NOTE | 2019-04-23 13:40 | Progress Note ---
Assessment and Plan Patient awake and more oriented. Patient Presently is on room air. O2 saturation is 99%. No acute respiratory distress. Patient afebrile and has leukocytosis. Patient is on zyvox and azactam. Patients heart rate and blood pressure running good. - Patient Problems (1) Acute respiratory failure Current Visit: Yes Status: Acute Qualifiers: Respiratory failure complication: hypoxia Qualified Code(s): J96.01 - Acute respiratory failure with hypoxia Plan to address problem: O2 2L as needed for shortness of breath or desaturation.. BiPAP standby in the room. Albuterol/atrovent aerosol treatments q 6 hours. Continue Prevacid. Recommend DVT prophylaxis. SCDs (2) Altered mental status Current Visit: Yes Status: Acute Qualifiers: Altered mental status type: unspecified Qualified Code(s): R41.82 - Altered mental status, unspecified Plan to address problem: Management as per primary care and neurology. (3) Atrial fibrillation with RVR Current Visit: Yes Status: Acute Plan to address problem: Management as per cardiology. (4) Cardiopulmonary arrest Current Visit: Yes Status: Acute Plan to address problem: Patient resuscitated. Presently resting on room air. (5) Acute renal failure Current Visit: Yes Status: Acute Qualifiers: Acute renal failure type: with acute tubular necrosis Qualified Code(s): N17.0 - Acute kidney failure with tubular necrosis Plan to address problem: Management as per nephrology. (6) Aspiration pneumonia Current Visit: Yes Status: Acute Qualifiers: Aspiration pneumonia type: unspecified Plan to address problem: Patient is on Azactam and zyvox. (7) GI bleed Current Visit: Yes Status: Acute Plan to address problem: Management as per gastroenterology. Subjective Date of service: 04/23/19 Principal diagnosis: Acute respr failure, Afib, Aspr Pneumonia, anemia - IJ DVt rt side Interval history: Patient awake and more oriented. Patient Presently is on room air. O2 saturation is 99%. No acute respiratory distress. Patient afebrile and has leukocytosis. Patient is on zyvox and azactam. Patients heart rate and blood pressure running good. Objective Vital Signs - 12hr 04/23/19 04/23/19 04/23/19 02:00 03:00 04:00 Temperature 98.3 F Pulse Rate 81 83 84 Pulse Rate [ 84 From Monitor] Respiratory 20 15 31 H Rate Blood Pressure 128/84 128/84 134/81 O2 Sat by Pulse 97 Oximetry 04/23/19 04/23/19 04/23/19 05:00 06:00 07:00 Temperature Pulse Rate 85 88 87 Pulse Rate [ From Monitor] Respiratory 13 6 L 21 Rate Blood Pressure 134/81 134/81 134/81 O2 Sat by Pulse 97 97 99 Oximetry 04/23/19 04/23/19 04/23/19 08:00 08:49 09:00 Temperature 98.1 F Pulse Rate 83 88 89 Pulse Rate [ 84 From Monitor] Respiratory 12 21 Rate Blood Pressure 129/76 141/93 141/93 O2 Sat by Pulse 98 97 Oximetry 04/23/19 04/23/19 04/23/19 10:00 11:01 12:00 Temperature 98.4 F Pulse Rate 77 84 79 Pulse Rate [ 84 From Monitor] Respiratory 15 31 H Rate Blood Pressure 138/87 142/50 O2 Sat by Pulse 98 99 97 Oximetry 04/23/19 12:01 Temperature Pulse Rate 77 Pulse Rate [ From Monitor] Respiratory Rate Blood Pressure 130/78 O2 Sat by Pulse 98 Oximetry Constitutional: no acute distress, alert Eyes: icteric ENT: oropharynx moist Neck: supple, no lymphadenopathy, no JVD, other (large neck circumference) Effort: normal Ascultation: Bilateral: diminished breath sounds, rales, rhonchi (scant) Percussion: Bilateral: not dull Cardiovascular: regular rate and rhythm, other ( S1,S2) Gastrointestinal: normoactive bowel sounds, soft, non-tender Integumentary: normal Extremities: no cyanosis, pink and warm, pulses normal, no ischemia or nabila chiae, edema (right upper extremity) Neurologic: normal mental status, non-focal exam (grossly), pupils equal and round, CN II-XII normal, other (very weak, intermittent confusion, left extremity weaker than the right) Psychiatric: mood appropriate, affect normal CBC and BMP: 04/23/19 04:06 04/23/19 04:06 ABG, PT/INR, D-dimer: ABG POC ABG pH 7.401 (7.35-7.45) 04/07/19 12:57 ABG pH 7.388 pH Units (7.350-7.450) 04/06/19 05:20 POC ABG pCO2 41.5 (35-45) 04/07/19 12:57 ABG pCO2 38.5 mm Hg 04/06/19 05:20 POC ABG pO2 107 (80-105) H 04/07/19 12:57 ABG pO2 104.0 mm Hg (80.0-90.0) H 04/06/19 05:20 POC ABG HCO3 25.7 (22-26 mml/L) 04/07/19 12:57 POC ABG Total CO2 27 (23-27mmol/L) 04/07/19 12:57 POC ABG O2 Sat 98 04/07/19 12:57 ABG O2 Saturation 97.8 % (95.0-99.0) 04/06/19 05:20 PT/INR, D-dimer PT 15.3 Sec. (12.2-14.9) H 03/29/19 11:48 INR 1.24 (0.87-1.13) H 03/29/19 11:48 D-Dimer 4845.98 ng/mlDDU (0-234) H 03/28/19 12:00 Abnormal lab findings: Abnormal Labs 03/16/19 03/16/19 03/16/19 15:32 16:03 16:05 WBC 27.0 H RBC 5.55 H Hgb 15.7 H Hct 47.1 H MCV MCHC RDW Plt Count 75 L Lymph % (Auto) [place] % (Auto) Lymph # [place] # Seg Neutrophils % Seg Neuts % (Manual) 85.0 H Lymphocytes % (Manual) 2.0 L Monocytes % (Manual) Nucleated RBC % Seg Neutrophils # Seg Neutrophils # Man 23.0 H Lymphocytes # (Manual) 0.5 L Monocytes # (Manual) PT INR D-Dimer Heparin Anti-Xa Level POC ABG pH ABG pH POC ABG pCO2 POC ABG pO2 ABG pO2 ABG HCO3 ABG O2 Saturation ABG Base Excess ABG Hemoglobin Oxyhemoglobin Sodium 127 L Potassium Chloride 87.8 L Carbon Dioxide 17 L BUN 49 H Creatinine 5.8 H Glucose 150 H POC Glucose 118 H Lactic Acid Calcium 6.6 L Ionized Calcium Phosphorus Magnesium 1.10 L Iron TIBC Ferritin Total Bilirubin Direct Bilirubin AST ALT Alkaline Phosphatase Total Creatine Kinase 18177 H CK-MB (CK-2) Troponin T C-Reactive Protein Total Protein Albumin Triglycerides LDL Cholesterol Direct HDL Cholesterol Free T4 PTH Intact Urine WBC (Auto) Urine Creatinine Salicylates Acetaminophen Crossmatch 03/16/19 03/16/19 03/16/19 16:59 17:05 17:05 WBC RBC Hgb Hct MCV MCHC RDW Plt Count Lymph % (Auto) [place] % (Auto) Lymph # [place] # Seg Neutrophils % Seg Neuts % (Manual) Lymphocytes % (Manual) Monocytes % (Manual) Nucleated RBC % Seg Neutrophils # Seg Neutrophils # Man Lymphocytes # (Manual) Monocytes # (Manual) PT INR D-Dimer Heparin Anti-Xa Level POC ABG pH 7.297 L ABG pH POC ABG pCO2 33.0 L POC ABG pO2 ABG pO2 ABG HCO3 ABG O2 Saturation ABG Base Excess ABG Hemoglobin Oxyhemoglobin Sodium Potassium Chloride Carbon Dioxide BUN Creatinine Glucose POC Glucose Lactic Acid Calcium Ionized Calcium Phosphorus Magnesium Iron TIBC Ferritin Total Bilirubin Direct Bilirubin AST ALT Alkaline Phosphatase Total Creatine Kinase 22112 H CK-MB (CK-2) 83.1 H Troponin T C-Reactive Protein Total Protein Albumin Triglycerides LDL Cholesterol Direct HDL Cholesterol Free T4 0.72 L PTH Intact Urine WBC (Auto) Urine Creatinine Salicylates Acetaminophen Crossmatch 03/16/19 03/16/19 03/16/19 17:05 17:05 17:05 WBC RBC Hgb Hct MCV MCHC RDW Plt Count Lymph % (Auto) [place] % (Auto) Lymph # [place] # Seg Neutrophils % Seg Neuts % (Manual) Lymphocytes % (Manual) Monocytes % (Manual) Nucleated RBC % Seg Neutrophils # Seg Neutrophils # Man Lymphocytes # (Manual) Monocytes # (Manual) PT INR D-Dimer Heparin Anti-Xa Level POC ABG pH ABG pH POC ABG pCO2 POC ABG pO2 ABG pO2 ABG HCO3 ABG O2 Saturation ABG Base Excess ABG Hemoglobin Oxyhemoglobin Sodium Potassium Chloride Carbon Dioxide BUN Creatinine Glucose POC Glucose Lactic Acid 5.10 H* Calcium Ionized Calcium Phosphorus Magnesium Iron TIBC Ferritin Total Bilirubin Direct Bilirubin AST ALT Alkaline Phosphatase Total Creatine Kinase CK-MB (CK-2) Troponin T C-Reactive Protein Total Protein Albumin Triglycerides LDL Cholesterol Direct HDL Cholesterol Free T4 PTH Intact Urine WBC (Auto) Urine Creatinine Salicylates < 0.3 L Acetaminophen < 5.0 L Crossmatch 03/16/19 03/16/19 03/16/19 17:05 17:05 20:35 WBC RBC Hgb Hct MCV MCHC RDW Plt Count Lymph % (Auto) [place] % (Auto) Lymph # [place] # Seg Neutrophils % Seg Neuts % (Manual) Lymphocytes % (Manual) Monocytes % (Manual) Nucleated RBC % Seg Neutrophils # Seg Neutrophils # Man Lymphocytes # (Manual) Monocytes # (Manual) PT 15.9 H INR 1.30 H D-Dimer Heparin Anti-Xa Level POC ABG pH ABG pH POC ABG pCO2 POC ABG pO2 ABG pO2 ABG HCO3 ABG O2 Saturation ABG Base Excess ABG Hemoglobin Oxyhemoglobin Sodium Potassium Chloride Carbon Dioxide BUN Creatinine Glucose POC Glucose Lactic Acid 3.30 H* Calcium Ionized Calcium Phosphorus Magnesium Iron TIBC Ferritin Total Bilirubin 6.20 H Direct Bilirubin 5.9 H AST 800 H ALT 120 H Alkaline Phosphatase Total Creatine Kinase CK-MB (CK-2) Troponin T C-Reactive Protein Total Protein 4.4 L Albumin 2.4 L Triglycerides LDL Cholesterol Direct HDL Cholesterol Free T4 PTH Intact Urine WBC (Auto) Urine Creatinine Salicylates Acetaminophen Crossmatch 03/16/19 03/16/19 03/16/19 21:45 22:32 Unknown WBC RBC Hgb Hct MCV MCHC RDW Plt Count Lymph % (Auto) [place] % (Auto) Lymph # [place] # Seg Neutrophils % Seg Neuts % (Manual) Lymphocytes % (Manual) Monocytes % (Manual) Nucleated RBC % Seg Neutrophils # Seg Neutrophils # Man Lymphocytes # (Manual) Monocytes # (Manual) PT INR D-Dimer Heparin Anti-Xa Level POC ABG pH ABG pH POC ABG pCO2 POC ABG pO2 ABG pO2 ABG HCO3 ABG O2 Saturation ABG Base Excess ABG Hemoglobin Oxyhemoglobin Sodium Potassium Chloride Carbon Dioxide BUN Creatinine Glucose POC Glucose Lactic Acid 3.30 H* 3.00 H* Calcium Ionized Calcium Phosphorus Magnesium Iron TIBC Ferritin Total Bilirubin Direct Bilirubin AST ALT Alkaline Phosphatase Total Creatine Kinase CK-MB (CK-2) Troponin T 0.047 H D C-Reactive Protein Total Protein Albumin Triglycerides 395 H LDL Cholesterol Direct 10 L HDL Cholesterol 7 L Free T4 PTH Intact Urine WBC (Auto) Urine Creatinine Salicylates Acetaminophen Crossmatch 03/17/19 03/17/19 03/17/19 03:45 03:45 03:45 WBC RBC Hgb Hct MCV MCHC RDW Plt Count Lymph % (Auto) [place] % (Auto) Lymph # [place] # Seg Neutrophils % Seg Neuts % (Manual) Lymphocytes % (Manual) Monocytes % (Manual) Nucleated RBC % Seg Neutrophils # Seg Neutrophils # Man Lymphocytes # (Manual) Monocytes # (Manual) PT INR D-Dimer Heparin Anti-Xa Level POC ABG pH ABG pH POC ABG pCO2 POC ABG pO2 ABG pO2 ABG HCO3 ABG O2 Saturation ABG Base Excess ABG Hemoglobin Oxyhemoglobin Sodium 131 L Potassium Chloride 88.9 L Carbon Dioxide BUN 53 H Creatinine 7.1 H Glucose POC Glucose Lactic Acid 4.10 H* Calcium 5.4 L* D Ionized Calcium Phosphorus 7.30 H Magnesium 1.60 L Iron TIBC Ferritin Total Bilirubin 5.90 H Direct Bilirubin AST 801 H ALT 109 H Alkaline Phosphatase Total Creatine Kinase 33904 H 47523 H CK-MB (CK-2) 41.5 H Troponin T 0.054 H C-Reactive Protein Total Protein 4.5 L Albumin 2.0 L Triglycerides LDL Cholesterol Direct HDL Cholesterol Free T4 PTH Intact Urine WBC (Auto) Urine Creatinine Salicylates Acetaminophen Crossmatch 03/17/19 03/17/19 03/17/19 05:47 07:16 07:16 WBC RBC Hgb Hct MCV MCHC RDW Plt Count Lymph % (Auto) [place] % (Auto) Lymph # [place] # Seg Neutrophils % Seg Neuts % (Manual) Lymphocytes % (Manual) Monocytes % (Manual) Nucleated RBC % Seg Neutrophils # Seg Neutrophils # Man Lymphocytes # (Manual) Monocytes # (Manual) PT INR D-Dimer Heparin Anti-Xa Level POC ABG pH 7.193 L ABG pH POC ABG pCO2 45.2 H POC ABG pO2 65 L ABG pO2 ABG HCO3 ABG O2 Saturation ABG Base Excess ABG Hemoglobin Oxyhemoglobin Sodium Potassium Chloride Carbon Dioxide BUN Creatinine Glucose POC Glucose Lactic Acid 5.50 H* Calcium Ionized Calcium Phosphorus Magnesium Iron TIBC Ferritin Total Bilirubin Direct Bilirubin AST ALT Alkaline Phosphatase Total Creatine Kinase 49513 H CK-MB (CK-2) 54.3 H Troponin T 0.058 H C-Reactive Protein Total Protein Albumin Triglycerides LDL Cholesterol Direct HDL Cholesterol Free T4 PTH Intact Urine WBC (Auto) Urine Creatinine Salicylates Acetaminophen Crossmatch 03/17/19 03/17/19 03/17/19 11:52 12:51 13:01 WBC RBC Hgb Hct MCV MCHC RDW Plt Count Lymph % (Auto) [place] % (Auto) Lymph # [place] # Seg Neutrophils % Seg Neuts % (Manual) Lymphocytes % (Manual) Monocytes % (Manual) Nucleated RBC % Seg Neutrophils # Seg Neutrophils # Man Lymphocytes # (Manual) Monocytes # (Manual) PT INR D-Dimer Heparin Anti-Xa Level POC ABG pH 7.154 L ABG pH POC ABG pCO2 34.3 L POC ABG pO2 73 L ABG pO2 ABG HCO3 ABG O2 Saturation ABG Base Excess ABG Hemoglobin Oxyhemoglobin Sodium Potassium Chloride Carbon Dioxide BUN Creatinine Glucose POC Glucose 60 L Lactic Acid 8.20 H* Calcium Ionized Calcium Phosphorus Magnesium Iron TIBC Ferritin Total Bilirubin Direct Bilirubin AST ALT Alkaline Phosphatase Total Creatine Kinase CK-MB (CK-2) Troponin T C-Reactive Protein Total Protein Albumin Triglycerides LDL Cholesterol Direct HDL Cholesterol Free T4 PTH Intact Urine WBC (Auto) Urine Creatinine Salicylates Acetaminophen Crossmatch 03/17/19 03/17/19 03/17/19 14:37 14:37 14:37 WBC 29.3 H RBC Hgb Hct MCV MCHC RDW 15.8 H Plt Count 45 L Lymph % (Auto) [place] % (Auto) Lymph # [place] # Seg Neutrophils % Seg Neuts % (Manual) 81.0 H Lymphocytes % (Manual) 1.0 L Monocytes % (Manual) 15.0 H Nucleated RBC % Seg Neutrophils # Seg Neutrophils # Man 23.7 H Lymphocytes # (Manual) 0.3 L Monocytes # (Manual) 4.4 H PT INR D-Dimer Heparin Anti-Xa Level POC ABG pH ABG pH POC ABG pCO2 POC ABG pO2 ABG pO2 ABG HCO3 ABG O2 Saturation ABG Base Excess ABG Hemoglobin Oxyhemoglobin Sodium Potassium Chloride Carbon Dioxide BUN Creatinine Glucose POC Glucose Lactic Acid 4.90 H* Calcium Ionized Calcium Phosphorus Magnesium Iron TIBC Ferritin Total Bilirubin Direct Bilirubin AST ALT Alkaline Phosphatase Total Creatine Kinase CK-MB (CK-2) Troponin T C-Reactive Protein 24.90 H Total Protein Albumin Triglycerides LDL Cholesterol Direct HDL Cholesterol Free T4 PTH Intact Urine WBC (Auto) Urine Creatinine Salicylates Acetaminophen Crossmatch 03/17/19 03/17/19 03/17/19 16:05 16:05 17:02 WBC RBC Hgb Hct MCV MCHC RDW Plt Count Lymph % (Auto) [place] % (Auto) Lymph # [place] # Seg Neutrophils % Seg Neuts % (Manual) Lymphocytes % (Manual) Monocytes % (Manual) Nucleated RBC % Seg Neutrophils # Seg Neutrophils # Man Lymphocytes # (Manual) Monocytes # (Manual) PT INR D-Dimer Heparin Anti-Xa Level POC ABG pH 7.183 L ABG pH POC ABG pCO2 POC ABG pO2 65 L ABG pO2 ABG HCO3 ABG O2 Saturation ABG Base Excess ABG Hemoglobin Oxyhemoglobin Sodium Potassium Chloride Carbon Dioxide BUN Creatinine Glucose POC Glucose Lactic Acid Calcium Ionized Calcium Phosphorus Magnesium Iron TIBC Ferritin Total Bilirubin Direct Bilirubin AST ALT Alkaline Phosphatase Total Creatine Kinase CK-MB (CK-2) Troponin T C-Reactive Protein Total Protein Albumin Triglycerides LDL Cholesterol Direct HDL Cholesterol Free T4 PTH Intact Urine WBC (Auto) 30.0 H Urine Creatinine 106.6 H Salicylates Acetaminophen Crossmatch 03/18/19 03/18/19 03/18/19 05:12 05:16 05:53 WBC RBC Hgb Hct MCV MCHC RDW Plt Count Lymph % (Auto) [place] % (Auto) Lymph # [place] # Seg Neutrophils % Seg Neuts % (Manual) Lymphocytes % (Manual) Monocytes % (Manual) Nucleated RBC % Seg Neutrophils # Seg Neutrophils # Man Lymphocytes # (Manual) Monocytes # (Manual) PT INR D-Dimer Heparin Anti-Xa Level POC ABG pH 7.257 L ABG pH POC ABG pCO2 31.6 L POC ABG pO2 69 L ABG pO2 ABG HCO3 ABG O2 Saturation ABG Base Excess ABG Hemoglobin Oxyhemoglobin Sodium Potassium Chloride Carbon Dioxide BUN Creatinine Glucose POC Glucose 141 H Lactic Acid 5.00 H* Calcium Ionized Calcium Phosphorus Magnesium Iron TIBC Ferritin Total Bilirubin Direct Bilirubin AST ALT Alkaline Phosphatase Total Creatine Kinase CK-MB (CK-2) Troponin T C-Reactive Protein Total Protein Albumin Triglycerides LDL Cholesterol Direct HDL Cholesterol Free T4 PTH Intact Urine WBC (Auto) Urine Creatinine Salicylates Acetaminophen Crossmatch 03/18/19 03/18/19 03/18/19 06:57 08:40 08:40 WBC 31.7 H RBC Hgb Hct MCV MCHC RDW 15.5 H Plt Count 35 L Lymph % (Auto) [place] % (Auto) Lymph # [place] # Seg Neutrophils % Seg Neuts % (Manual) Lymphocytes % (Manual) Monocytes % (Manual) Nucleated RBC % Seg Neutrophils # Seg Neutrophils # Man Lymphocytes # (Manual) Monocytes # (Manual) PT INR D-Dimer Heparin Anti-Xa Level POC ABG pH ABG pH POC ABG pCO2 POC ABG pO2 ABG pO2 ABG HCO3 ABG O2 Saturation ABG Base Excess ABG Hemoglobin Oxyhemoglobin Sodium 132 L Potassium 5.5 H D Chloride 88.5 L Carbon Dioxide 18 L BUN 71 H Creatinine 8.1 H Glucose 205 H POC Glucose Lactic Acid 5.00 H* Calcium 4.1 L* D Ionized Calcium Phosphorus Magnesium 2.40 H Iron TIBC Ferritin Total Bilirubin 7.50 H Direct Bilirubin AST 1088 H ALT 159 H Alkaline Phosphatase 190 H Total Creatine Kinase 609334 H CK-MB (CK-2) Troponin T C-Reactive Protein Total Protein 4.7 L Albumin 1.8 L Triglycerides LDL Cholesterol Direct HDL Cholesterol Free T4 PTH Intact Urine WBC (Auto) Urine Creatinine Salicylates Acetaminophen Crossmatch 03/18/19 03/18/19 03/18/19 12:33 12:50 13:19 WBC RBC Hgb Hct MCV MCHC RDW Plt Count Lymph % (Auto) [place] % (Auto) Lymph # [place] # Seg Neutrophils % Seg Neuts % (Manual) Lymphocytes % (Manual) Monocytes % (Manual) Nucleated RBC % Seg Neutrophils # Seg Neutrophils # Man Lymphocytes # (Manual) Monocytes # (Manual) PT INR D-Dimer Heparin Anti-Xa Level POC ABG pH 7.282 L ABG pH POC ABG pCO2 POC ABG pO2 67 L ABG pO2 ABG HCO3 ABG O2 Saturation ABG Base Excess ABG Hemoglobin Oxyhemoglobin Sodium Potassium Chloride Carbon Dioxide BUN Creatinine Glucose POC Glucose 129 H Lactic Acid 3.30 H* Calcium Ionized Calcium Phosphorus Magnesium Iron TIBC Ferritin Total Bilirubin Direct Bilirubin AST ALT Alkaline Phosphatase Total Creatine Kinase CK-MB (CK-2) Troponin T C-Reactive Protein Total Protein Albumin Triglycerides LDL Cholesterol Direct HDL Cholesterol Free T4 PTH Intact Urine WBC (Auto) Urine Creatinine Salicylates Acetaminophen Crossmatch 03/18/19 03/18/19 03/18/19 13:19 16:50 18:11 WBC RBC Hgb Hct MCV MCHC RDW Plt Count Lymph % (Auto) [place] % (Auto) Lymph # [place] # Seg Neutrophils % Seg Neuts % (Manual) Lymphocytes % (Manual) Monocytes % (Manual) Nucleated RBC % Seg Neutrophils # Seg Neutrophils # Man Lymphocytes # (Manual) Monocytes # (Manual) PT INR D-Dimer Heparin Anti-Xa Level POC ABG pH ABG pH POC ABG pCO2 POC ABG pO2 59 L ABG pO2 ABG HCO3 ABG O2 Saturation ABG Base Excess ABG Hemoglobin Oxyhemoglobin Sodium Potassium Chloride Carbon Dioxide BUN Creatinine Glucose POC Glucose 151 H Lactic Acid Calcium 4.2 L* Ionized Calcium Phosphorus Magnesium Iron TIBC Ferritin Total Bilirubin Direct Bilirubin AST ALT Alkaline Phosphatase Total Creatine Kinase 614113 H CK-MB (CK-2) Troponin T C-Reactive Protein Total Protein Albumin Triglycerides LDL Cholesterol Direct HDL Cholesterol Free T4 PTH Intact Urine WBC (Auto) Urine Creatinine Salicylates Acetaminophen Crossmatch 03/18/19 03/18/19 03/19/19 18:20 23:39 01:42 WBC RBC Hgb Hct MCV MCHC RDW Plt Count Lymph % (Auto) [place] % (Auto) Lymph # [place] # Seg Neutrophils % Seg Neuts % (Manual) Lymphocytes % (Manual) Monocytes % (Manual) Nucleated RBC % Seg Neutrophils # Seg Neutrophils # Man Lymphocytes # (Manual) Monocytes # (Manual) PT INR D-Dimer Heparin Anti-Xa Level POC ABG pH 7.345 L ABG pH 7.285 L POC ABG pCO2 POC ABG pO2 59 L ABG pO2 44.0 L ABG HCO3 ABG O2 Saturation 70.9 L ABG Base Excess -5.7 L ABG Hemoglobin 11.9 L Oxyhemoglobin 69.6 L Sodium Potassium Chloride Carbon Dioxide BUN Creatinine Glucose POC Glucose 152 H Lactic Acid Calcium Ionized Calcium Phosphorus Magnesium Iron TIBC Ferritin Total Bilirubin Direct Bilirubin AST ALT Alkaline Phosphatase Total Creatine Kinase CK-MB (CK-2) Troponin T C-Reactive Protein Total Protein Albumin Triglycerides LDL Cholesterol Direct HDL Cholesterol Free T4 PTH Intact Urine WBC (Auto) Urine Creatinine Salicylates Acetaminophen Crossmatch 03/19/19 03/19/19 03/19/19 04:00 04:00 05:35 WBC 36.5 H RBC Hgb Hct MCV MCHC RDW 15.8 H Plt Count 35 L Lymph % (Auto) [place] % (Auto) Lymph # [place] # Seg Neutrophils % Seg Neuts % (Manual) Lymphocytes % (Manual) Monocytes % (Manual) Nucleated RBC % Seg Neutrophils # Seg Neutrophils # Man Lymphocytes # (Manual) Monocytes # (Manual) PT INR D-Dimer Heparin Anti-Xa Level POC ABG pH ABG pH 7.265 L POC ABG pCO2 POC ABG pO2 ABG pO2 35.4 L* ABG HCO3 ABG O2 Saturation 54.4 L ABG Base Excess -6.7 L ABG Hemoglobin 12.9 L Oxyhemoglobin 53.4 L Sodium 132 L Potassium 5.7 H Chloride 89.8 L Carbon Dioxide 19 L BUN 62 H Creatinine 6.4 H Glucose 151 H POC Glucose Lactic Acid Calcium 5.2 L* D Ionized Calcium Phosphorus Magnesium Iron TIBC Ferritin Total Bilirubin 7.80 H Direct Bilirubin AST 682 H ALT 130 H Alkaline Phosphatase 167 H Total Creatine Kinase CK-MB (CK-2) Troponin T C-Reactive Protein Total Protein 4.8 L Albumin 2.3 L Triglycerides LDL Cholesterol Direct HDL Cholesterol Free T4 PTH Intact Urine WBC (Auto) Urine Creatinine Salicylates Acetaminophen Crossmatch 03/19/19 03/19/19 03/19/19 05:49 09:16 09:50 WBC RBC Hgb Hct MCV MCHC RDW Plt Count Lymph % (Auto) [place] % (Auto) Lymph # [place] # Seg Neutrophils % Seg Neuts % (Manual) Lymphocytes % (Manual) Monocytes % (Manual) Nucleated RBC % Seg Neutrophils # Seg Neutrophils # Man Lymphocytes # (Manual) Monocytes # (Manual) PT INR D-Dimer Heparin Anti-Xa Level POC ABG pH 7.222 L ABG pH POC ABG pCO2 56.6 H POC ABG pO2 ABG pO2 ABG HCO3 ABG O2 Saturation ABG Base Excess ABG Hemoglobin Oxyhemoglobin Sodium Potassium Chloride Carbon Dioxide BUN Creatinine Glucose POC Glucose 154 H Lactic Acid 2.70 H* Calcium Ionized Calcium Phosphorus Magnesium Iron TIBC Ferritin Total Bilirubin Direct Bilirubin AST ALT Alkaline Phosphatase Total Creatine Kinase CK-MB (CK-2) Troponin T C-Reactive Protein Total Protein Albumin Triglycerides LDL Cholesterol Direct HDL Cholesterol Free T4 PTH Intact Urine WBC (Auto) Urine Creatinine Salicylates Acetaminophen Crossmatch 03/19/19 03/19/19 03/19/19 09:50 11:28 17:58 WBC RBC Hgb Hct MCV MCHC RDW Plt Count Lymph % (Auto) [place] % (Auto) Lymph # [place] # Seg Neutrophils % Seg Neuts % (Manual) Lymphocytes % (Manual) Monocytes % (Manual) Nucleated RBC % Seg Neutrophils # Seg Neutrophils # Man Lymphocytes # (Manual) Monocytes # (Manual) PT INR D-Dimer Heparin Anti-Xa Level POC ABG pH 7.250 L ABG pH POC ABG pCO2 52.6 H POC ABG pO2 ABG pO2 ABG HCO3 ABG O2 Saturation ABG Base Excess ABG Hemoglobin Oxyhemoglobin Sodium Potassium Chloride Carbon Dioxide BUN Creatinine Glucose POC Glucose 160 H Lactic Acid Calcium Ionized Calcium Phosphorus Magnesium Iron TIBC Ferritin Total Bilirubin Direct Bilirubin AST ALT Alkaline Phosphatase Total Creatine Kinase 26699 H CK-MB (CK-2) Troponin T C-Reactive Protein Total Protein Albumin Triglycerides LDL Cholesterol Direct HDL Cholesterol Free T4 PTH Intact Urine WBC (Auto) Urine Creatinine Salicylates Acetaminophen Crossmatch 03/19/19 03/19/19 03/20/19 19:48 21:03 02:16 WBC RBC Hgb Hct MCV MCHC RDW Plt Count Lymph % (Auto) [place] % (Auto) Lymph # [place] # Seg Neutrophils % Seg Neuts % (Manual) Lymphocytes % (Manual) Monocytes % (Manual) Nucleated RBC % Seg Neutrophils # Seg Neutrophils # Man Lymphocytes # (Manual) Monocytes # (Manual) PT INR D-Dimer Heparin Anti-Xa Level POC ABG pH 7.279 L ABG pH POC ABG pCO2 50.3 H POC ABG pO2 129 H ABG pO2 ABG HCO3 ABG O2 Saturation ABG Base Excess ABG Hemoglobin Oxyhemoglobin Sodium Potassium Chloride Carbon Dioxide BUN Creatinine Glucose POC Glucose 119 H 119 H Lactic Acid Calcium Ionized Calcium Phosphorus Magnesium Iron TIBC Ferritin Total Bilirubin Direct Bilirubin AST ALT Alkaline Phosphatase Total Creatine Kinase CK-MB (CK-2) Troponin T C-Reactive Protein Total Protein Albumin Triglycerides LDL Cholesterol Direct HDL Cholesterol Free T4 PTH Intact Urine WBC (Auto) Urine Creatinine Salicylates Acetaminophen Crossmatch 03/20/19 03/20/19 03/20/19 04:23 05:05 09:30 WBC 36.3 H RBC Hgb Hct MCV MCHC RDW 15.5 H Plt Count 29 L Lymph % (Auto) [place] % (Auto) Lymph # [place] # Seg Neutrophils % Seg Neuts % (Manual) Lymphocytes % (Manual) Monocytes % (Manual) Nucleated RBC % Seg Neutrophils # Seg Neutrophils # Man Lymphocytes # (Manual) Monocytes # (Manual) PT INR D-Dimer Heparin Anti-Xa Level POC ABG pH ABG pH POC ABG pCO2 POC ABG pO2 280 H ABG pO2 ABG HCO3 ABG O2 Saturation ABG Base Excess ABG Hemoglobin Oxyhemoglobin Sodium Potassium Chloride Carbon Dioxide BUN Creatinine Glucose POC Glucose 115 H Lactic Acid Calcium Ionized Calcium Phosphorus Magnesium Iron TIBC Ferritin Total Bilirubin Direct Bilirubin AST ALT Alkaline Phosphatase Total Creatine Kinase CK-MB (CK-2) Troponin T C-Reactive Protein Total Protein Albumin Triglycerides LDL Cholesterol Direct HDL Cholesterol Free T4 PTH Intact Urine WBC (Auto) Urine Creatinine Salicylates Acetaminophen Crossmatch 03/20/19 03/20/19 03/20/19 09:30 09:30 11:34 WBC RBC Hgb Hct MCV MCHC RDW Plt Count Lymph % (Auto) [place] % (Auto) Lymph # [place] # Seg Neutrophils % Seg Neuts % (Manual) Lymphocytes % (Manual) Monocytes % (Manual) Nucleated RBC % Seg Neutrophils # Seg Neutrophils # Man Lymphocytes # (Manual) Monocytes # (Manual) PT INR D-Dimer Heparin Anti-Xa Level POC ABG pH ABG pH POC ABG pCO2 POC ABG pO2 ABG pO2 ABG HCO3 ABG O2 Saturation ABG Base Excess ABG Hemoglobin Oxyhemoglobin Sodium 131 L Potassium Chloride 92.3 L Carbon Dioxide 20 L BUN 68 H Creatinine 6.1 H Glucose 164 H POC Glucose 141 H Lactic Acid Calcium 5.3 L* Ionized Calcium Phosphorus Magnesium Iron TIBC Ferritin Total Bilirubin 9.50 H Direct Bilirubin AST 381 H ALT 116 H Alkaline Phosphatase 255 H Total Creatine Kinase 01151 H CK-MB (CK-2) Troponin T C-Reactive Protein Total Protein 5.1 L Albumin 2.3 L Triglycerides LDL Cholesterol Direct HDL Cholesterol Free T4 PTH Intact Urine WBC (Auto) Urine Creatinine Salicylates Acetaminophen Crossmatch 03/20/19 03/20/19 03/20/19 14:41 14:45 18:50 WBC RBC Hgb Hct MCV MCHC RDW Plt Count Lymph % (Auto) [place] % (Auto) Lymph # [place] # Seg Neutrophils % Seg Neuts % (Manual) Lymphocytes % (Manual) Monocytes % (Manual) Nucleated RBC % Seg Neutrophils # Seg Neutrophils # Man Lymphocytes # (Manual) Monocytes # (Manual) PT INR D-Dimer Heparin Anti-Xa Level POC ABG pH ABG pH POC ABG pCO2 POC ABG pO2 ABG pO2 ABG HCO3 ABG O2 Saturation ABG Base Excess ABG Hemoglobin Oxyhemoglobin Sodium Potassium Chloride Carbon Dioxide BUN Creatinine Glucose POC Glucose 117 H Lactic Acid 2.90 H* Calcium Ionized Calcium Phosphorus Magnesium Iron TIBC Ferritin Total Bilirubin Direct Bilirubin AST ALT Alkaline Phosphatase Total Creatine Kinase CK-MB (CK-2) Troponin T C-Reactive Protein 13.30 H Total Protein Albumin Triglycerides LDL Cholesterol Direct HDL Cholesterol Free T4 PTH Intact Urine WBC (Auto) Urine Creatinine Salicylates Acetaminophen Crossmatch 03/20/19 03/21/19 03/21/19 21:55 04:26 04:26 WBC 37.8 H RBC Hgb Hct MCV MCHC RDW 15.4 H Plt Count 36 L Lymph % (Auto) [place] % (Auto) Lymph # [place] # Seg Neutrophils % Seg Neuts % (Manual) 93.0 H Lymphocytes % (Manual) 3.0 L Monocytes % (Manual) Nucleated RBC % 1.0 H Seg Neutrophils # 34.6 H Seg Neutrophils # Man 35.2 H Lymphocytes # (Manual) 1.1 L Monocytes # (Manual) PT INR D-Dimer Heparin Anti-Xa Level POC ABG pH ABG pH POC ABG pCO2 POC ABG pO2 ABG pO2 ABG HCO3 ABG O2 Saturation ABG Base Excess ABG Hemoglobin Oxyhemoglobin Sodium 131 L Potassium Chloride 90.7 L Carbon Dioxide 21 L BUN 69 H Creatinine 5.7 H Glucose 170 H POC Glucose 128 H Lactic Acid Calcium 6.1 L D Ionized Calcium Phosphorus Magnesium Iron TIBC Ferritin Total Bilirubin 9.50 H Direct Bilirubin AST 308 H ALT 124 H Alkaline Phosphatase 327 H Total Creatine Kinase 72394 H CK-MB (CK-2) Troponin T C-Reactive Protein Total Protein 5.7 L Albumin 2.6 L Triglycerides LDL Cholesterol Direct HDL Cholesterol Free T4 PTH Intact Urine WBC (Auto) Urine Creatinine Salicylates Acetaminophen Crossmatch 03/21/19 03/21/19 03/21/19 05:17 05:39 08:29 WBC RBC Hgb Hct MCV MCHC RDW Plt Count Lymph % (Auto) [place] % (Auto) Lymph # [place] # Seg Neutrophils % Seg Neuts % (Manual) Lymphocytes % (Manual) Monocytes % (Manual) Nucleated RBC % Seg Neutrophils # Seg Neutrophils # Man Lymphocytes # (Manual) Monocytes # (Manual) PT INR D-Dimer Heparin Anti-Xa Level POC ABG pH ABG pH POC ABG pCO2 POC ABG pO2 209 H ABG pO2 ABG HCO3 ABG O2 Saturation ABG Base Excess ABG Hemoglobin Oxyhemoglobin Sodium Potassium Chloride Carbon Dioxide BUN Creatinine Glucose POC Glucose 145 H Lactic Acid Calcium Ionized Calcium Phosphorus Magnesium Iron TIBC Ferritin Total Bilirubin Direct Bilirubin AST ALT Alkaline Phosphatase Total Creatine Kinase 31984 H CK-MB (CK-2) Troponin T C-Reactive Protein Total Protein Albumin Triglycerides LDL Cholesterol Direct HDL Cholesterol Free T4 PTH Intact Urine WBC (Auto) Urine Creatinine Salicylates Acetaminophen Crossmatch 03/21/19 03/21/19 03/21/19 08:29 11:43 12:00 WBC RBC Hgb Hct MCV MCHC RDW Plt Count Lymph % (Auto) [place] % (Auto) Lymph # [place] # Seg Neutrophils % Seg Neuts % (Manual) Lymphocytes % (Manual) Monocytes % (Manual) Nucleated RBC % Seg Neutrophils # Seg Neutrophils # Man Lymphocytes # (Manual) Monocytes # (Manual) PT INR D-Dimer Heparin Anti-Xa Level POC ABG pH ABG pH POC ABG pCO2 POC ABG pO2 ABG pO2 ABG HCO3 ABG O2 Saturation ABG Base Excess ABG Hemoglobin Oxyhemoglobin Sodium Potassium Chloride Carbon Dioxide BUN Creatinine Glucose POC Glucose 123 H Lactic Acid 2.60 H* 2.20 H* Calcium Ionized Calcium Phosphorus Magnesium Iron TIBC Ferritin Total Bilirubin Direct Bilirubin AST ALT Alkaline Phosphatase Total Creatine Kinase CK-MB (CK-2) Troponin T C-Reactive Protein Total Protein Albumin Triglycerides LDL Cholesterol Direct HDL Cholesterol Free T4 PTH Intact Urine WBC (Auto) Urine Creatinine Salicylates Acetaminophen Crossmatch 03/21/19 03/21/19 03/21/19 14:11 18:28 19:32 WBC RBC Hgb Hct MCV MCHC RDW Plt Count Lymph % (Auto) [place] % (Auto) Lymph # [place] # Seg Neutrophils % Seg Neuts % (Manual) Lymphocytes % (Manual) Monocytes % (Manual) Nucleated RBC % Seg Neutrophils # Seg Neutrophils # Man Lymphocytes # (Manual) Monocytes # (Manual) PT INR D-Dimer Heparin Anti-Xa Level POC ABG pH 7.293 L ABG pH POC ABG pCO2 POC ABG pO2 ABG pO2 ABG HCO3 ABG O2 Saturation ABG Base Excess ABG Hemoglobin Oxyhemoglobin Sodium Potassium Chloride Carbon Dioxide BUN Creatinine Glucose POC Glucose 153 H Lactic Acid 2.10 H* Calcium Ionized Calcium Phosphorus Magnesium Iron TIBC Ferritin Total Bilirubin Direct Bilirubin AST ALT Alkaline Phosphatase Total Creatine Kinase CK-MB (CK-2) Troponin T C-Reactive Protein Total Protein Albumin Triglycerides LDL Cholesterol Direct HDL Cholesterol Free T4 PTH Intact Urine WBC (Auto) Urine Creatinine Salicylates Acetaminophen Crossmatch 03/21/19 03/22/19 03/22/19 23:38 05:08 05:51 WBC RBC Hgb Hct MCV MCHC RDW Plt Count Lymph % (Auto) [place] % (Auto) Lymph # [place] # Seg Neutrophils % Seg Neuts % (Manual) Lymphocytes % (Manual) Monocytes % (Manual) Nucleated RBC % Seg Neutrophils # Seg Neutrophils # Man Lymphocytes # (Manual) Monocytes # (Manual) PT INR D-Dimer Heparin Anti-Xa Level POC ABG pH 7.283 L ABG pH POC ABG pCO2 POC ABG pO2 53 L ABG pO2 ABG HCO3 ABG O2 Saturation ABG Base Excess ABG Hemoglobin Oxyhemoglobin Sodium Potassium Chloride Carbon Dioxide BUN Creatinine Glucose POC Glucose 149 H 131 H Lactic Acid Calcium Ionized Calcium Phosphorus Magnesium Iron TIBC Ferritin Total Bilirubin Direct Bilirubin AST ALT Alkaline Phosphatase Total Creatine Kinase CK-MB (CK-2) Troponin T C-Reactive Protein Total Protein Albumin Triglycerides LDL Cholesterol Direct HDL Cholesterol Free T4 PTH Intact Urine WBC (Auto) Urine Creatinine Salicylates Acetaminophen Crossmatch 03/22/19 03/22/19 03/22/19 08:00 08:00 18:19 WBC 36.7 H RBC Hgb 11.0 L Hct 33.5 L MCV MCHC RDW 15.5 H Plt Count 43 L Lymph % (Auto) [place] % (Auto) Lymph # [place] # Seg Neutrophils % Seg Neuts % (Manual) 87.0 H Lymphocytes % (Manual) 7.0 L Monocytes % (Manual) Nucleated RBC % Seg Neutrophils # Seg Neutrophils # Man 31.9 H Lymphocytes # (Manual) Monocytes # (Manual) PT INR D-Dimer Heparin Anti-Xa Level POC ABG pH ABG pH POC ABG pCO2 46.4 H POC ABG pO2 108 H ABG pO2 ABG HCO3 ABG O2 Saturation ABG Base Excess ABG Hemoglobin Oxyhemoglobin Sodium 132 L Potassium 5.6 H Chloride 89.6 L Carbon Dioxide 20 L BUN 101 H Creatinine 7.4 H Glucose 124 H POC Glucose Lactic Acid Calcium 5.2 L* Ionized Calcium Phosphorus Magnesium Iron TIBC Ferritin Total Bilirubin 2.80 H Direct Bilirubin AST 119 H ALT 86 H Alkaline Phosphatase 245 H Total Creatine Kinase CK-MB (CK-2) Troponin T C-Reactive Protein Total Protein 5.6 L Albumin 2.5 L Triglycerides LDL Cholesterol Direct HDL Cholesterol Free T4 PTH Intact Urine WBC (Auto) Urine Creatinine Salicylates Acetaminophen Crossmatch 03/22/19 03/23/19 03/23/19 20:37 04:49 05:28 WBC 35.9 H RBC Hgb 10.8 L Hct 33.2 L MCV MCHC RDW 15.5 H Plt Count 49 L Lymph % (Auto) [place] % (Auto) Lymph # [place] # Seg Neutrophils % Seg Neuts % (Manual) 81.0 H Lymphocytes % (Manual) 3.5 L Monocytes % (Manual) Nucleated RBC % Seg Neutrophils # Seg Neutrophils # Man 29.1 H Lymphocytes # (Manual) Monocytes # (Manual) 1.4 H PT INR D-Dimer Heparin Anti-Xa Level POC ABG pH 7.296 L ABG pH POC ABG pCO2 46.2 H POC ABG pO2 ABG pO2 ABG HCO3 ABG O2 Saturation ABG Base Excess ABG Hemoglobin Oxyhemoglobin Sodium 129 L Potassium 5.2 H Chloride 91.1 L Carbon Dioxide BUN 91 H Creatinine 6.6 H Glucose 190 H POC Glucose Lactic Acid Calcium 5.3 L* Ionized Calcium Phosphorus Magnesium Iron TIBC Ferritin Total Bilirubin 1.80 H Direct Bilirubin AST 80 H ALT 62 H Alkaline Phosphatase 209 H Total Creatine Kinase 9758 H CK-MB (CK-2) Troponin T C-Reactive Protein Total Protein 5.2 L Albumin 2.2 L Triglycerides LDL Cholesterol Direct HDL Cholesterol Free T4 PTH Intact Urine WBC (Auto) Urine Creatinine Salicylates Acetaminophen Crossmatch 03/23/19 03/23/19 03/23/19 05:28 05:31 11:33 WBC 29.7 H RBC 3.59 L Hgb 10.1 L Hct 31.1 L MCV MCHC RDW 15.4 H Plt Count 47 L Lymph % (Auto) [place] % (Auto) Lymph # [place] # Seg Neutrophils % Seg Neuts % (Manual) 89.0 H Lymphocytes % (Manual) 6.0 L Monocytes % (Manual) Nucleated RBC % 1.0 H Seg Neutrophils # Seg Neutrophils # Man 26.4 H Lymphocytes # (Manual) Monocytes # (Manual) PT INR D-Dimer Heparin Anti-Xa Level POC ABG pH ABG pH POC ABG pCO2 POC ABG pO2 ABG pO2 ABG HCO3 ABG O2 Saturation ABG Base Excess ABG Hemoglobin Oxyhemoglobin Sodium Potassium Chloride Carbon Dioxide BUN Creatinine Glucose POC Glucose 122 H 113 H Lactic Acid Calcium Ionized Calcium Phosphorus Magnesium Iron TIBC Ferritin Total Bilirubin Direct Bilirubin AST ALT Alkaline Phosphatase Total Creatine Kinase CK-MB (CK-2) Troponin T C-Reactive Protein Total Protein Albumin Triglycerides LDL Cholesterol Direct HDL Cholesterol Free T4 PTH Intact Urine WBC (Auto) Urine Creatinine Salicylates Acetaminophen Crossmatch 03/23/19 03/24/19 03/24/19 17:47 00:00 04:50 WBC 35.0 H RBC Hgb 10.4 L Hct 32.4 L MCV MCHC RDW Plt Count 60 L Lymph % (Auto) [place] % (Auto) Lymph # [place] # Seg Neutrophils % Seg Neuts % (Manual) 93.0 H Lymphocytes % (Manual) 5.0 L Monocytes % (Manual) Nucleated RBC % 7.0 H Seg Neutrophils # Seg Neutrophils # Man 32.6 H Lymphocytes # (Manual) Monocytes # (Manual) PT INR D-Dimer Heparin Anti-Xa Level POC ABG pH ABG pH POC ABG pCO2 POC ABG pO2 ABG pO2 ABG HCO3 ABG O2 Saturation ABG Base Excess ABG Hemoglobin Oxyhemoglobin Sodium Potassium Chloride Carbon Dioxide BUN Creatinine Glucose POC Glucose 111 H 108 H Lactic Acid Calcium Ionized Calcium Phosphorus Magnesium Iron TIBC Ferritin Total Bilirubin Direct Bilirubin AST ALT Alkaline Phosphatase Total Creatine Kinase CK-MB (CK-2) Troponin T C-Reactive Protein Total Protein Albumin Triglycerides LDL Cholesterol Direct HDL Cholesterol Free T4 PTH Intact Urine WBC (Auto) Urine Creatinine Salicylates Acetaminophen Crossmatch 03/24/19 03/24/19 03/24/19 04:50 05:06 12:55 WBC RBC Hgb Hct MCV MCHC RDW Plt Count Lymph % (Auto) [place] % (Auto) Lymph # [place] # Seg Neutrophils % Seg Neuts % (Manual) Lymphocytes % (Manual) Monocytes % (Manual) Nucleated RBC % Seg Neutrophils # Seg Neutrophils # Man Lymphocytes # (Manual) Monocytes # (Manual) PT INR D-Dimer Heparin Anti-Xa Level POC ABG pH ABG pH POC ABG pCO2 POC ABG pO2 ABG pO2 ABG HCO3 ABG O2 Saturation ABG Base Excess ABG Hemoglobin Oxyhemoglobin Sodium 134 L Potassium 5.1 H Chloride 95.3 L Carbon Dioxide 21 L BUN 85 H Creatinine 6.4 H Glucose 109 H POC Glucose 112 H 110 H Lactic Acid Calcium 5.8 L* Ionized Calcium Phosphorus Magnesium Iron TIBC Ferritin Total Bilirubin Direct Bilirubin AST ALT Alkaline Phosphatase Total Creatine Kinase 5747 H CK-MB (CK-2) Troponin T C-Reactive Protein Total Protein Albumin Triglycerides LDL Cholesterol Direct HDL Cholesterol Free T4 PTH Intact Urine WBC (Auto) Urine Creatinine Salicylates Acetaminophen Crossmatch 03/24/19 03/25/19 03/25/19 23:29 05:00 05:00 WBC RBC Hgb Hct MCV MCHC RDW Plt Count Lymph % (Auto) [place] % (Auto) Lymph # [place] # Seg Neutrophils % Seg Neuts % (Manual) Lymphocytes % (Manual) Monocytes % (Manual) Nucleated RBC % Seg Neutrophils # Seg Neutrophils # Man Lymphocytes # (Manual) Monocytes # (Manual) PT INR D-Dimer Heparin Anti-Xa Level POC ABG pH ABG pH POC ABG pCO2 POC ABG pO2 ABG pO2 ABG HCO3 ABG O2 Saturation ABG Base Excess ABG Hemoglobin Oxyhemoglobin Sodium 133 L Potassium Chloride 94.0 L Carbon Dioxide 21 L BUN 81 H Creatinine 6.4 H Glucose POC Glucose 109 H Lactic Acid Calcium 5.5 L* Ionized Calcium Phosphorus Magnesium Iron TIBC Ferritin Total Bilirubin Direct Bilirubin AST 80 H ALT Alkaline Phosphatase 202 H Total Creatine Kinase 3589 H CK-MB (CK-2) Troponin T C-Reactive Protein Total Protein 5.3 L Albumin 2.4 L Triglycerides LDL Cholesterol Direct HDL Cholesterol Free T4 PTH Intact 329.9 H Urine WBC (Auto) Urine Creatinine Salicylates Acetaminophen Crossmatch 03/25/19 03/25/19 03/26/19 05:00 06:30 04:30 WBC 23.3 H RBC 3.61 L Hgb 10.2 L Hct 31.2 L MCV MCHC RDW Plt Count 57 L Lymph % (Auto) [place] % (Auto) Lymph # [place] # Seg Neutrophils % Seg Neuts % (Manual) 92.0 H Lymphocytes % (Manual) 6.0 L Monocytes % (Manual) Nucleated RBC % Seg Neutrophils # Seg Neutrophils # Man 21.4 H Lymphocytes # (Manual) Monocytes # (Manual) PT INR D-Dimer Heparin Anti-Xa Level POC ABG pH ABG pH 7.326 L POC ABG pCO2 POC ABG pO2 ABG pO2 109.5 H 137.4 H ABG HCO3 18.8 L 18.6 L ABG O2 Saturation ABG Base Excess -4.4 L -6.8 L ABG Hemoglobin 10.1 L 9.9 L Oxyhemoglobin Sodium Potassium Chloride Carbon Dioxide BUN Creatinine Glucose POC Glucose Lactic Acid Calcium Ionized Calcium Phosphorus Magnesium Iron TIBC Ferritin Total Bilirubin Direct Bilirubin AST ALT Alkaline Phosphatase Total Creatine Kinase CK-MB (CK-2) Troponin T C-Reactive Protein Total Protein Albumin Triglycerides LDL Cholesterol Direct HDL Cholesterol Free T4 PTH Intact Urine WBC (Auto) Urine Creatinine Salicylates Acetaminophen Crossmatch 03/26/19 03/26/19 03/26/19 23:22 Unknown Unknown WBC 19.5 H RBC 3.44 L Hgb 9.8 L Hct 29.9 L MCV MCHC RDW Plt Count 85 L Lymph % (Auto) [place] % (Auto) Lymph # [place] # Seg Neutrophils % Seg Neuts % (Manual) 95.0 H Lymphocytes % (Manual) 3.0 L Monocytes % (Manual) Nucleated RBC % Seg Neutrophils # Seg Neutrophils # Man 18.5 H Lymphocytes # (Manual) 0.6 L Monocytes # (Manual) PT INR D-Dimer Heparin Anti-Xa Level POC ABG pH ABG pH POC ABG pCO2 POC ABG pO2 ABG pO2 ABG HCO3 ABG O2 Saturation ABG Base Excess ABG Hemoglobin Oxyhemoglobin Sodium 135 L Potassium 5.2 H D Chloride 92.2 L Carbon Dioxide 18 L BUN 109 H Creatinine 8.5 H Glucose 117 H POC Glucose 69 L Lactic Acid Calcium 4.5 L* D Ionized Calcium Phosphorus Magnesium Iron TIBC Ferritin Total Bilirubin Direct Bilirubin AST ALT Alkaline Phosphatase Total Creatine Kinase 4527 H CK-MB (CK-2) Troponin T C-Reactive Protein Total Protein Albumin Triglycerides LDL Cholesterol Direct HDL Cholesterol Free T4 PTH Intact Urine WBC (Auto) Urine Creatinine Salicylates Acetaminophen Crossmatch 03/27/19 03/27/19 03/27/19 04:30 04:30 09:00 WBC 19.2 H RBC 3.42 L Hgb 9.9 L Hct 30.0 L MCV MCHC RDW Plt Count 84 L Lymph % (Auto) [place] % (Auto) Lymph # [place] # Seg Neutrophils % Seg Neuts % (Manual) Lymphocytes % (Manual) Monocytes % (Manual) Nucleated RBC % Seg Neutrophils # Seg Neutrophils # Man Lymphocytes # (Manual) Monocytes # (Manual) PT INR D-Dimer Heparin Anti-Xa Level POC ABG pH ABG pH POC ABG pCO2 POC ABG pO2 ABG pO2 ABG HCO3 ABG O2 Saturation ABG Base Excess ABG Hemoglobin Oxyhemoglobin Sodium 135 L Potassium Chloride 93.5 L Carbon Dioxide BUN 84 H Creatinine 7.1 H Glucose POC Glucose Lactic Acid Calcium 5.0 L* Ionized Calcium Phosphorus Magnesium Iron TIBC Ferritin Total Bilirubin Direct Bilirubin AST 78 H ALT Alkaline Phosphatase 135 H Total Creatine Kinase 4677 H CK-MB (CK-2) Troponin T C-Reactive Protein Total Protein 4.8 L Albumin 2.3 L Triglycerides 409 H LDL Cholesterol Direct HDL Cholesterol Free T4 PTH Intact Urine WBC (Auto) Urine Creatinine Salicylates Acetaminophen Crossmatch 03/27/19 03/27/19 03/27/19 12:37 14:15 14:15 WBC RBC Hgb 9.7 L Hct 29.5 L MCV MCHC RDW Plt Count 87 L Lymph % (Auto) [place] % (Auto) Lymph # [place] # Seg Neutrophils % Seg Neuts % (Manual) Lymphocytes % (Manual) Monocytes % (Manual) Nucleated RBC % Seg Neutrophils # Seg Neutrophils # Man Lymphocytes # (Manual) Monocytes # (Manual) PT 15.9 H INR 1.30 H D-Dimer Heparin Anti-Xa Level POC ABG pH ABG pH POC ABG pCO2 POC ABG pO2 ABG pO2 ABG HCO3 ABG O2 Saturation ABG Base Excess ABG Hemoglobin Oxyhemoglobin Sodium Potassium Chloride Carbon Dioxide BUN Creatinine Glucose POC Glucose 129 H Lactic Acid Calcium Ionized Calcium Phosphorus Magnesium Iron TIBC Ferritin Total Bilirubin Direct Bilirubin AST ALT Alkaline Phosphatase Total Creatine Kinase CK-MB (CK-2) Troponin T C-Reactive Protein Total Protein Albumin Triglycerides LDL Cholesterol Direct HDL Cholesterol Free T4 PTH Intact Urine WBC (Auto) Urine Creatinine Salicylates Acetaminophen Crossmatch 03/27/19 03/27/19 03/27/19 18:00 19:22 19:23 WBC RBC Hgb Hct MCV MCHC RDW Plt Count Lymph % (Auto) [place] % (Auto) Lymph # [place] # Seg Neutrophils % Seg Neuts % (Manual) Lymphocytes % (Manual) Monocytes % (Manual) Nucleated RBC % Seg Neutrophils # Seg Neutrophils # Man Lymphocytes # (Manual) Monocytes # (Manual) PT INR D-Dimer Heparin Anti-Xa Level < 0.10 L POC ABG pH ABG pH POC ABG pCO2 POC ABG pO2 ABG pO2 ABG HCO3 ABG O2 Saturation ABG Base Excess ABG Hemoglobin Oxyhemoglobin Sodium Potassium Chloride Carbon Dioxide BUN Creatinine Glucose POC Glucose 121 H Lactic Acid Calcium Ionized Calcium Phosphorus Magnesium Iron TIBC Ferritin Total Bilirubin Direct Bilirubin AST ALT Alkaline Phosphatase Total Creatine Kinase 4517 H CK-MB (CK-2) Troponin T C-Reactive Protein Total Protein Albumin Triglycerides LDL Cholesterol Direct HDL Cholesterol Free T4 PTH Intact Urine WBC (Auto) Urine Creatinine Salicylates Acetaminophen Crossmatch 03/27/19 03/27/19 03/28/19 22:10 23:52 03:49 WBC RBC Hgb Hct MCV MCHC RDW Plt Count Lymph % (Auto) [place] % (Auto) Lymph # [place] # Seg Neutrophils % Seg Neuts % (Manual) Lymphocytes % (Manual) Monocytes % (Manual) Nucleated RBC % Seg Neutrophils # Seg Neutrophils # Man Lymphocytes # (Manual) Monocytes # (Manual) PT INR D-Dimer Heparin Anti-Xa Level POC ABG pH 7.338 L ABG pH POC ABG pCO2 33.1 L POC ABG pO2 ABG pO2 ABG HCO3 ABG O2 Saturation ABG Base Excess ABG Hemoglobin Oxyhemoglobin Sodium Potassium Chloride Carbon Dioxide BUN Creatinine Glucose POC Glucose 113 H 117 H Lactic Acid Calcium Ionized Calcium Phosphorus Magnesium Iron TIBC Ferritin Total Bilirubin Direct Bilirubin AST ALT Alkaline Phosphatase Total Creatine Kinase CK-MB (CK-2) Troponin T C-Reactive Protein Total Protein Albumin Triglycerides LDL Cholesterol Direct HDL Cholesterol Free T4 PTH Intact Urine WBC (Auto) Urine Creatinine Salicylates Acetaminophen Crossmatch 03/28/19 03/28/19 03/28/19 05:13 05:13 06:18 WBC RBC Hgb Hct MCV MCHC RDW Plt Count Lymph % (Auto) [place] % (Auto) Lymph # [place] # Seg Neutrophils % Seg Neuts % (Manual) Lymphocytes % (Manual) Monocytes % (Manual) Nucleated RBC % Seg Neutrophils # Seg Neutrophils # Man Lymphocytes # (Manual) Monocytes # (Manual) PT INR D-Dimer Heparin Anti-Xa Level 0.23 L POC ABG pH ABG pH POC ABG pCO2 POC ABG pO2 ABG pO2 ABG HCO3 ABG O2 Saturation ABG Base Excess ABG Hemoglobin Oxyhemoglobin Sodium 135 L Potassium 5.5 H D Chloride 95.1 L Carbon Dioxide 16 L D BUN 129 H Creatinine 9.3 H Glucose 158 H POC Glucose 202 H Lactic Acid Calcium 4.0 L* D Ionized Calcium Phosphorus 12.40 H Magnesium Iron TIBC Ferritin Total Bilirubin Direct Bilirubin AST ALT Alkaline Phosphatase Total Creatine Kinase 4266 H CK-MB (CK-2) Troponin T C-Reactive Protein Total Protein Albumin Triglycerides LDL Cholesterol Direct HDL Cholesterol Free T4 PTH Intact Urine WBC (Auto) Urine Creatinine Salicylates Acetaminophen Crossmatch 03/28/19 03/28/19 03/28/19 08:25 10:00 12:00 WBC RBC Hgb 4.9 L* D Hct 15.4 L* D MCV MCHC RDW Plt Count Lymph % (Auto) [place] % (Auto) Lymph # [place] # Seg Neutrophils % Seg Neuts % (Manual) Lymphocytes % (Manual) Monocytes % (Manual) Nucleated RBC % Seg Neutrophils # Seg Neutrophils # Man Lymphocytes # (Manual) Monocytes # (Manual) PT 17.9 H INR 1.52 H D-Dimer 4845.98 H Heparin Anti-Xa Level POC ABG pH ABG pH POC ABG pCO2 POC ABG pO2 ABG pO2 ABG HCO3 ABG O2 Saturation ABG Base Excess ABG Hemoglobin Oxyhemoglobin Sodium Potassium Chloride Carbon Dioxide BUN Creatinine Glucose POC Glucose Lactic Acid Calcium Ionized Calcium Phosphorus Magnesium Iron TIBC Ferritin Total Bilirubin Direct Bilirubin AST ALT Alkaline Phosphatase Total Creatine Kinase CK-MB (CK-2) Troponin T C-Reactive Protein Total Protein Albumin Triglycerides LDL Cholesterol Direct HDL Cholesterol Free T4 PTH Intact Urine WBC (Auto) Urine Creatinine Salicylates Acetaminophen Crossmatch See Detail 03/28/19 03/28/19 03/28/19 12:28 14:10 17:43 WBC RBC Hgb 5.9 L* Hct 18.3 L* MCV MCHC RDW Plt Count Lymph % (Auto) [place] % (Auto) Lymph # [place] # Seg Neutrophils % Seg Neuts % (Manual) Lymphocytes % (Manual) Monocytes % (Manual) Nucleated RBC % Seg Neutrophils # Seg Neutrophils # Man Lymphocytes # (Manual) Monocytes # (Manual) PT INR D-Dimer Heparin Anti-Xa Level POC ABG pH ABG pH POC ABG pCO2 POC ABG pO2 ABG pO2 ABG HCO3 ABG O2 Saturation ABG Base Excess ABG Hemoglobin Oxyhemoglobin Sodium Potassium Chloride Carbon Dioxide BUN Creatinine Glucose POC Glucose 153 H 159 H Lactic Acid Calcium Ionized Calcium Phosphorus Magnesium Iron TIBC Ferritin Total Bilirubin Direct Bilirubin AST ALT Alkaline Phosphatase Total Creatine Kinase CK-MB (CK-2) Troponin T C-Reactive Protein Total Protein Albumin Triglycerides LDL Cholesterol Direct HDL Cholesterol Free T4 PTH Intact Urine WBC (Auto) Urine Creatinine Salicylates Acetaminophen Crossmatch 03/28/19 03/28/19 03/28/19 18:10 Unknown 23:59 WBC 24.8 H RBC 3.42 L Hgb 10.2 L D Hct 31.1 L D MCV MCHC RDW 15.4 H Plt Count 54 L Lymph % (Auto) [place] % (Auto) Lymph # [place] # Seg Neutrophils % Seg Neuts % (Manual) 91.0 H Lymphocytes % (Manual) 8.0 L Monocytes % (Manual) Nucleated RBC % Seg Neutrophils # Seg Neutrophils # Man 22.6 H Lymphocytes # (Manual) Monocytes # (Manual) PT INR D-Dimer Heparin Anti-Xa Level POC ABG pH ABG pH POC ABG pCO2 POC ABG pO2 ABG pO2 ABG HCO3 ABG O2 Saturation ABG Base Excess ABG Hemoglobin Oxyhemoglobin Sodium Potassium 5.7 H Chloride Carbon Dioxide BUN Creatinine Glucose POC Glucose 107 H Lactic Acid Calcium Ionized Calcium Phosphorus Magnesium Iron TIBC Ferritin Total Bilirubin Direct Bilirubin AST ALT Alkaline Phosphatase Total Creatine Kinase CK-MB (CK-2) Troponin T C-Reactive Protein Total Protein Albumin Triglycerides LDL Cholesterol Direct HDL Cholesterol Free T4 PTH Intact Urine WBC (Auto) Urine Creatinine Salicylates Acetaminophen Crossmatch 03/29/19 03/29/19 03/29/19 04:29 05:46 06:22 WBC RBC Hgb 8.6 L Hct 25.7 L MCV MCHC RDW Plt Count 93 L Lymph % (Auto) [place] % (Auto) Lymph # [place] # Seg Neutrophils % Seg Neuts % (Manual) Lymphocytes % (Manual) Monocytes % (Manual) Nucleated RBC % Seg Neutrophils # Seg Neutrophils # Man Lymphocytes # (Manual) Monocytes # (Manual) PT INR D-Dimer Heparin Anti-Xa Level POC ABG pH ABG pH POC ABG pCO2 32.2 L POC ABG pO2 ABG pO2 ABG HCO3 ABG O2 Saturation ABG Base Excess ABG Hemoglobin Oxyhemoglobin Sodium Potassium Chloride Carbon Dioxide BUN Creatinine Glucose POC Glucose 113 H Lactic Acid Calcium Ionized Calcium Phosphorus Magnesium Iron TIBC Ferritin Total Bilirubin Direct Bilirubin AST ALT Alkaline Phosphatase Total Creatine Kinase CK-MB (CK-2) Troponin T C-Reactive Protein Total Protein Albumin Triglycerides LDL Cholesterol Direct HDL Cholesterol Free T4 PTH Intact Urine WBC (Auto) Urine Creatinine Salicylates Acetaminophen Crossmatch 03/29/19 03/29/19 03/29/19 06:22 06:22 06:22 WBC 23.2 H RBC 2.91 L Hgb 8.6 L Hct 25.8 L MCV MCHC RDW Plt Count 91 L Lymph % (Auto) [place] % (Auto) Lymph # [place] # Seg Neutrophils % Seg Neuts % (Manual) Lymphocytes % (Manual) Monocytes % (Manual) Nucleated RBC % Seg Neutrophils # Seg Neutrophils # Man Lymphocytes # (Manual) Monocytes # (Manual) PT INR D-Dimer Heparin Anti-Xa Level POC ABG pH ABG pH POC ABG pCO2 POC ABG pO2 ABG pO2 ABG HCO3 ABG O2 Saturation ABG Base Excess ABG Hemoglobin Oxyhemoglobin Sodium 133 L Potassium Chloride 93.8 L Carbon Dioxide 18 L BUN 109 H Creatinine 7.4 H Glucose 124 H POC Glucose Lactic Acid Calcium 4.6 L* Ionized Calcium Phosphorus Magnesium Iron TIBC Ferritin Total Bilirubin Direct Bilirubin AST ALT Alkaline Phosphatase Total Creatine Kinase 3401 H CK-MB (CK-2) Troponin T C-Reactive Protein Total Protein Albumin Triglycerides 309 H LDL Cholesterol Direct HDL Cholesterol Free T4 PTH Intact Urine WBC (Auto) Urine Creatinine Salicylates Acetaminophen Crossmatch 03/29/19 03/29/19 03/29/19 11:48 11:48 18:24 WBC RBC Hgb 7.8 L Hct 23.2 L MCV MCHC RDW Plt Count Lymph % (Auto) [place] % (Auto) Lymph # [place] # Seg Neutrophils % Seg Neuts % (Manual) Lymphocytes % (Manual) Monocytes % (Manual) Nucleated RBC % Seg Neutrophils # Seg Neutrophils # Man Lymphocytes # (Manual) Monocytes # (Manual) PT 15.3 H INR 1.24 H D-Dimer Heparin Anti-Xa Level POC ABG pH ABG pH POC ABG pCO2 POC ABG pO2 ABG pO2 ABG HCO3 ABG O2 Saturation ABG Base Excess ABG Hemoglobin Oxyhemoglobin Sodium Potassium Chloride Carbon Dioxide BUN Creatinine Glucose POC Glucose 122 H Lactic Acid Calcium Ionized Calcium Phosphorus Magnesium Iron TIBC Ferritin Total Bilirubin Direct Bilirubin AST ALT Alkaline Phosphatase Total Creatine Kinase CK-MB (CK-2) Troponin T C-Reactive Protein Total Protein Albumin Triglycerides LDL Cholesterol Direct HDL Cholesterol Free T4 PTH Intact Urine WBC (Auto) Urine Creatinine Salicylates Acetaminophen Crossmatch 03/30/19 03/30/19 03/30/19 00:40 04:31 05:04 WBC RBC Hgb 7.6 L Hct 23.0 L MCV MCHC RDW Plt Count Lymph % (Auto) [place] % (Auto) Lymph # [place] # Seg Neutrophils % Seg Neuts % (Manual) Lymphocytes % (Manual) Monocytes % (Manual) Nucleated RBC % Seg Neutrophils # Seg Neutrophils # Man Lymphocytes # (Manual) Monocytes # (Manual) PT INR D-Dimer Heparin Anti-Xa Level POC ABG pH 7.346 L ABG pH POC ABG pCO2 POC ABG pO2 62 L ABG pO2 ABG HCO3 ABG O2 Saturation ABG Base Excess ABG Hemoglobin Oxyhemoglobin Sodium Potassium Chloride Carbon Dioxide BUN 79 H Creatinine 6.4 H Glucose POC Glucose Lactic Acid Calcium 6.1 L D Ionized Calcium Phosphorus Magnesium Iron TIBC Ferritin Total Bilirubin Direct Bilirubin AST ALT Alkaline Phosphatase Total Creatine Kinase CK-MB (CK-2) Troponin T C-Reactive Protein Total Protein Albumin Triglycerides LDL Cholesterol Direct HDL Cholesterol Free T4 PTH Intact Urine WBC (Auto) Urine Creatinine Salicylates Acetaminophen Crossmatch 03/30/19 03/30/19 03/30/19 08:45 12:09 22:43 WBC 14.3 H RBC 2.33 L Hgb 7.0 L 7.4 L Hct 21.0 L 22.3 L MCV MCHC RDW 15.6 H Plt Count 135 L Lymph % (Auto) [place] % (Auto) Lymph # [place] # Seg Neutrophils % Seg Neuts % (Manual) Lymphocytes % (Manual) Monocytes % (Manual) Nucleated RBC % Seg Neutrophils # Seg Neutrophils # Man Lymphocytes # (Manual) Monocytes # (Manual) PT INR D-Dimer Heparin Anti-Xa Level POC ABG pH ABG pH POC ABG pCO2 POC ABG pO2 ABG pO2 ABG HCO3 ABG O2 Saturation ABG Base Excess ABG Hemoglobin Oxyhemoglobin Sodium Potassium Chloride Carbon Dioxide BUN Creatinine Glucose POC Glucose Lactic Acid Calcium Ionized Calcium 3.7 L Phosphorus Magnesium Iron TIBC Ferritin Total Bilirubin Direct Bilirubin AST ALT Alkaline Phosphatase Total Creatine Kinase CK-MB (CK-2) Troponin T C-Reactive Protein Total Protein Albumin Triglycerides LDL Cholesterol Direct HDL Cholesterol Free T4 PTH Intact Urine WBC (Auto) Urine Creatinine Salicylates Acetaminophen Crossmatch 03/30/19 03/30/19 03/31/19 23:38 Unknown 04:44 WBC 11.5 H RBC 2.40 L Hgb 7.3 L Hct 21.9 L MCV MCHC RDW 15.4 H Plt Count Lymph % (Auto) 10.6 L [place] % (Auto) Lymph # [place] # Seg Neutrophils % 81.7 H Seg Neuts % (Manual) Lymphocytes % (Manual) Monocytes % (Manual) Nucleated RBC % Seg Neutrophils # 9.4 H Seg Neutrophils # Man Lymphocytes # (Manual) Monocytes # (Manual) PT INR D-Dimer Heparin Anti-Xa Level POC ABG pH ABG pH POC ABG pCO2 POC ABG pO2 ABG pO2 ABG HCO3 ABG O2 Saturation ABG Base Excess ABG Hemoglobin Oxyhemoglobin Sodium Potassium Chloride Carbon Dioxide BUN Creatinine Glucose POC Glucose 155 H Lactic Acid Calcium Ionized Calcium Phosphorus Magnesium Iron TIBC Ferritin Total Bilirubin Direct Bilirubin 0.4 H AST 63 H ALT Alkaline Phosphatase Total Creatine Kinase CK-MB (CK-2) Troponin T C-Reactive Protein Total Protein 4.9 L Albumin 2.2 L Triglycerides LDL Cholesterol Direct HDL Cholesterol Free T4 PTH Intact Urine WBC (Auto) Urine Creatinine Salicylates Acetaminophen Crossmatch 03/31/19 03/31/19 03/31/19 04:44 05:44 08:20 WBC RBC Hgb Hct MCV MCHC RDW Plt Count Lymph % (Auto) [place] % (Auto) Lymph # [place] # Seg Neutrophils % Seg Neuts % (Manual) Lymphocytes % (Manual) Monocytes % (Manual) Nucleated RBC % Seg Neutrophils # Seg Neutrophils # Man Lymphocytes # (Manual) Monocytes # (Manual) PT INR D-Dimer Heparin Anti-Xa Level POC ABG pH ABG pH POC ABG pCO2 53.5 H POC ABG pO2 62 L ABG pO2 ABG HCO3 ABG O2 Saturation ABG Base Excess ABG Hemoglobin Oxyhemoglobin Sodium 135 L Potassium Chloride 96.7 L Carbon Dioxide 19 L BUN 94 H Creatinine 7.8 H Glucose POC Glucose Lactic Acid Calcium 5.3 L* Ionized Calcium Phosphorus 8.20 H Magnesium Iron TIBC Ferritin Total Bilirubin Direct Bilirubin 0.4 H AST 60 H ALT Alkaline Phosphatase Total Creatine Kinase CK-MB (CK-2) Troponin T C-Reactive Protein Total Protein 4.8 L Albumin 2.1 L Triglycerides LDL Cholesterol Direct HDL Cholesterol Free T4 PTH Intact Urine WBC (Auto) Urine Creatinine Salicylates Acetaminophen Crossmatch 03/31/19 04/01/19 04/01/19 22:14 04:27 04:27 WBC RBC 2.60 L Hgb 8.0 L Hct 24.1 L MCV MCHC RDW 15.7 H Plt Count Lymph % (Auto) 7.9 L [place] % (Auto) Lymph # 0.7 L [place] # Seg Neutrophils % 83.6 H Seg Neuts % (Manual) Lymphocytes % (Manual) Monocytes % (Manual) Nucleated RBC % Seg Neutrophils # Seg Neutrophils # Man Lymphocytes # (Manual) Monocytes # (Manual) PT INR D-Dimer Heparin Anti-Xa Level POC ABG pH 7.286 L ABG pH POC ABG pCO2 54.7 H POC ABG pO2 179 H ABG pO2 ABG HCO3 ABG O2 Saturation ABG Base Excess ABG Hemoglobin Oxyhemoglobin Sodium Potassium Chloride Carbon Dioxide BUN 68 H Creatinine 6.6 H Glucose POC Glucose Lactic Acid Calcium 6.5 L D Ionized Calcium Phosphorus 7.30 H Magnesium Iron TIBC Ferritin Total Bilirubin Direct Bilirubin AST ALT Alkaline Phosphatase Total Creatine Kinase 1652 H CK-MB (CK-2) Troponin T C-Reactive Protein Total Protein Albumin Triglycerides LDL Cholesterol Direct HDL Cholesterol Free T4 PTH Intact Urine WBC (Auto) Urine Creatinine Salicylates Acetaminophen Crossmatch 04/01/19 04/01/19 04/01/19 05:14 05:37 18:37 WBC RBC Hgb Hct MCV MCHC RDW Plt Count Lymph % (Auto) [place] % (Auto) Lymph # [place] # Seg Neutrophils % Seg Neuts % (Manual) Lymphocytes % (Manual) Monocytes % (Manual) Nucleated RBC % Seg Neutrophils # Seg Neutrophils # Man Lymphocytes # (Manual) Monocytes # (Manual) PT INR D-Dimer Heparin Anti-Xa Level POC ABG pH 7.283 L ABG pH POC ABG pCO2 53.4 H POC ABG pO2 241 H ABG pO2 ABG HCO3 ABG O2 Saturation ABG Base Excess ABG Hemoglobin Oxyhemoglobin Sodium Potassium Chloride Carbon Dioxide BUN Creatinine Glucose POC Glucose 111 H 119 H Lactic Acid Calcium Ionized Calcium Phosphorus Magnesium Iron TIBC Ferritin Total Bilirubin Direct Bilirubin AST ALT Alkaline Phosphatase Total Creatine Kinase CK-MB (CK-2) Troponin T C-Reactive Protein Total Protein Albumin Triglycerides LDL Cholesterol Direct HDL Cholesterol Free T4 PTH Intact Urine WBC (Auto) Urine Creatinine Salicylates Acetaminophen Crossmatch 04/01/19 04/02/19 04/02/19 21:28 04:40 05:03 WBC RBC 2.36 L Hgb 7.2 L Hct 21.9 L MCV MCHC RDW 16.0 H Plt Count Lymph % (Auto) 10.8 L [place] % (Auto) Lymph # 0.8 L [place] # Seg Neutrophils % 80.3 H Seg Neuts % (Manual) Lymphocytes % (Manual) Monocytes % (Manual) Nucleated RBC % Seg Neutrophils # Seg Neutrophils # Man Lymphocytes # (Manual) Monocytes # (Manual) PT INR D-Dimer Heparin Anti-Xa Level POC ABG pH 7.299 L 7.300 L ABG pH POC ABG pCO2 48.2 H 45.2 H POC ABG pO2 133 H 107 H ABG pO2 ABG HCO3 ABG O2 Saturation ABG Base Excess ABG Hemoglobin Oxyhemoglobin Sodium Potassium Chloride Carbon Dioxide BUN Creatinine Glucose POC Glucose Lactic Acid Calcium Ionized Calcium Phosphorus Magnesium Iron TIBC Ferritin Total Bilirubin Direct Bilirubin AST ALT Alkaline Phosphatase Total Creatine Kinase CK-MB (CK-2) Troponin T C-Reactive Protein Total Protein Albumin Triglycerides LDL Cholesterol Direct HDL Cholesterol Free T4 PTH Intact Urine WBC (Auto) Urine Creatinine Salicylates Acetaminophen Crossmatch 04/02/19 04/02/19 04/02/19 05:03 05:03 12:15 WBC RBC Hgb 7.4 L Hct 22.6 L MCV MCHC RDW Plt Count Lymph % (Auto) [place] % (Auto) Lymph # [place] # Seg Neutrophils % Seg Neuts % (Manual) Lymphocytes % (Manual) Monocytes % (Manual) Nucleated RBC % Seg Neutrophils # Seg Neutrophils # Man Lymphocytes # (Manual) Monocytes # (Manual) PT INR D-Dimer Heparin Anti-Xa Level POC ABG pH ABG pH POC ABG pCO2 POC ABG pO2 ABG pO2 ABG HCO3 ABG O2 Saturation ABG Base Excess ABG Hemoglobin Oxyhemoglobin Sodium 136 L Potassium Chloride 97.8 L Carbon Dioxide 18 L BUN 82 H Creatinine 8.2 H Glucose POC Glucose Lactic Acid Calcium 6.7 L Ionized Calcium Phosphorus 7.50 H Magnesium Iron 26 L TIBC 138 L Ferritin 607.0 H Total Bilirubin Direct Bilirubin AST ALT Alkaline Phosphatase Total Creatine Kinase CK-MB (CK-2) Troponin T C-Reactive Protein Total Protein Albumin Triglycerides LDL Cholesterol Direct HDL Cholesterol Free T4 PTH Intact Urine WBC (Auto) Urine Creatinine Salicylates Acetaminophen Crossmatch 04/02/19 04/02/19 04/03/19 16:34 17:14 04:18 WBC RBC Hgb Hct MCV MCHC RDW Plt Count Lymph % (Auto) [place] % (Auto) Lymph # [place] # Seg Neutrophils % Seg Neuts % (Manual) Lymphocytes % (Manual) Monocytes % (Manual) Nucleated RBC % Seg Neutrophils # Seg Neutrophils # Man Lymphocytes # (Manual) Monocytes # (Manual) PT INR D-Dimer Heparin Anti-Xa Level POC ABG pH ABG pH POC ABG pCO2 POC ABG pO2 146 H ABG pO2 ABG HCO3 ABG O2 Saturation ABG Base Excess ABG Hemoglobin Oxyhemoglobin Sodium Potassium Chloride Carbon Dioxide BUN Creatinine Glucose POC Glucose 108 H Lactic Acid Calcium Ionized Calcium Phosphorus Magnesium Iron TIBC Ferritin Total Bilirubin Direct Bilirubin AST ALT Alkaline Phosphatase Total Creatine Kinase CK-MB (CK-2) Troponin T C-Reactive Protein Total Protein Albumin Triglycerides LDL Cholesterol Direct HDL Cholesterol Free T4 PTH Intact Urine WBC (Auto) Urine Creatinine Salicylates Acetaminophen Crossmatch See Detail 04/03/19 04/03/19 04/03/19 04:25 08:30 18:24 WBC RBC 2.40 L Hgb 7.3 L Hct 21.9 L MCV MCHC RDW Plt Count Lymph % (Auto) [place] % (Auto) 7.7 H Lymph # 0.9 L [place] # Seg Neutrophils % 74.6 H Seg Neuts % (Manual) Lymphocytes % (Manual) Monocytes % (Manual) Nucleated RBC % Seg Neutrophils # Seg Neutrophils # Man Lymphocytes # (Manual) Monocytes # (Manual) PT INR D-Dimer Heparin Anti-Xa Level POC ABG pH ABG pH POC ABG pCO2 POC ABG pO2 ABG pO2 ABG HCO3 ABG O2 Saturation ABG Base Excess ABG Hemoglobin Oxyhemoglobin Sodium 136 L Potassium Chloride 97.0 L Carbon Dioxide BUN 58 H Creatinine 7.3 H Glucose POC Glucose 106 H Lactic Acid Calcium 7.5 L Ionized Calcium Phosphorus 5.80 H D Magnesium Iron TIBC Ferritin Total Bilirubin Direct Bilirubin AST ALT Alkaline Phosphatase Total Creatine Kinase CK-MB (CK-2) Troponin T C-Reactive Protein Total Protein Albumin Triglycerides LDL Cholesterol Direct HDL Cholesterol Free T4 PTH Intact Urine WBC (Auto) Urine Creatinine Salicylates Acetaminophen Crossmatch 04/03/19 04/04/19 04/04/19 23:43 04:47 04:47 WBC RBC 2.72 L Hgb 8.3 L Hct 24.7 L MCV MCHC RDW 15.6 H Plt Count Lymph % (Auto) [place] % (Auto) 10.1 H Lymph # 0.8 L [place] # Seg Neutrophils % 71.4 H Seg Neuts % (Manual) Lymphocytes % (Manual) Monocytes % (Manual) Nucleated RBC % Seg Neutrophils # Seg Neutrophils # Man Lymphocytes # (Manual) Monocytes # (Manual) PT INR D-Dimer Heparin Anti-Xa Level POC ABG pH ABG pH POC ABG pCO2 POC ABG pO2 ABG pO2 123.8 H ABG HCO3 ABG O2 Saturation ABG Base Excess -3.0 L ABG Hemoglobin 7.9 L Oxyhemoglobin Sodium 134 L Potassium Chloride 97.9 L Carbon Dioxide BUN 64 H Creatinine 8.1 H Glucose POC Glucose Lactic Acid Calcium 7.2 L Ionized Calcium Phosphorus Magnesium Iron TIBC Ferritin Total Bilirubin Direct Bilirubin AST ALT Alkaline Phosphatase Total Creatine Kinase CK-MB (CK-2) Troponin T C-Reactive Protein Total Protein Albumin Triglycerides LDL Cholesterol Direct HDL Cholesterol Free T4 PTH Intact Urine WBC (Auto) Urine Creatinine Salicylates Acetaminophen Crossmatch 04/04/19 04/04/19 04/04/19 06:07 13:40 18:18 WBC RBC Hgb Hct MCV MCHC RDW Plt Count Lymph % (Auto) [place] % (Auto) Lymph # [place] # Seg Neutrophils % Seg Neuts % (Manual) Lymphocytes % (Manual) Monocytes % (Manual) Nucleated RBC % Seg Neutrophils # Seg Neutrophils # Man Lymphocytes # (Manual) Monocytes # (Manual) PT INR D-Dimer Heparin Anti-Xa Level POC ABG pH ABG pH POC ABG pCO2 POC ABG pO2 ABG pO2 95.9 H ABG HCO3 ABG O2 Saturation ABG Base Excess -3.0 L ABG Hemoglobin 8.5 L Oxyhemoglobin Sodium Potassium Chloride Carbon Dioxide BUN Creatinine Glucose POC Glucose 107 H 107 H Lactic Acid Calcium Ionized Calcium Phosphorus Magnesium Iron TIBC Ferritin Total Bilirubin Direct Bilirubin AST ALT Alkaline Phosphatase Total Creatine Kinase CK-MB (CK-2) Troponin T C-Reactive Protein Total Protein Albumin Triglycerides LDL Cholesterol Direct HDL Cholesterol Free T4 PTH Intact Urine WBC (Auto) Urine Creatinine Salicylates Acetaminophen Crossmatch 04/04/19 04/05/19 04/05/19 21:22 04:09 04:09 WBC RBC 2.76 L Hgb 8.4 L Hct 25.4 L MCV MCHC RDW 15.8 H Plt Count 133 L Lymph % (Auto) [place] % (Auto) 9.6 H Lymph # 0.7 L [place] # Seg Neutrophils % 72.6 H Seg Neuts % (Manual) Lymphocytes % (Manual) Monocytes % (Manual) Nucleated RBC % Seg Neutrophils # Seg Neutrophils # Man Lymphocytes # (Manual) Monocytes # (Manual) PT INR D-Dimer Heparin Anti-Xa Level POC ABG pH ABG pH POC ABG pCO2 47.2 H POC ABG pO2 137 H ABG pO2 ABG HCO3 ABG O2 Saturation ABG Base Excess ABG Hemoglobin Oxyhemoglobin Sodium 136 L Potassium Chloride Carbon Dioxide BUN 46 H Creatinine 6.7 H Glucose POC Glucose Lactic Acid Calcium 7.7 L Ionized Calcium Phosphorus Magnesium Iron TIBC Ferritin Total Bilirubin Direct Bilirubin AST ALT Alkaline Phosphatase Total Creatine Kinase CK-MB (CK-2) Troponin T C-Reactive Protein Total Protein Albumin Triglycerides LDL Cholesterol Direct HDL Cholesterol Free T4 PTH Intact Urine WBC (Auto) Urine Creatinine Salicylates Acetaminophen Crossmatch 04/05/19 04/05/19 04/05/19 05:28 06:14 16:50 WBC RBC Hgb Hct MCV MCHC RDW Plt Count Lymph % (Auto) [place] % (Auto) Lymph # [place] # Seg Neutrophils % Seg Neuts % (Manual) Lymphocytes % (Manual) Monocytes % (Manual) Nucleated RBC % Seg Neutrophils # Seg Neutrophils # Man Lymphocytes # (Manual) Monocytes # (Manual) PT INR D-Dimer Heparin Anti-Xa Level POC ABG pH ABG pH POC ABG pCO2 POC ABG pO2 67 L ABG pO2 ABG HCO3 ABG O2 Saturation ABG Base Excess ABG Hemoglobin Oxyhemoglobin Sodium Potassium Chloride Carbon Dioxide BUN Creatinine Glucose POC Glucose 108 H Lactic Acid Calcium Ionized Calcium Phosphorus Magnesium Iron TIBC Ferritin Total Bilirubin Direct Bilirubin AST ALT Alkaline Phosphatase Total Creatine Kinase CK-MB (CK-2) Troponin T C-Reactive Protein Total Protein Albumin Triglycerides LDL Cholesterol Direct HDL Cholesterol Free T4 PTH Intact Urine WBC (Auto) 40.0 H Urine Creatinine Salicylates Acetaminophen Crossmatch 04/05/19 04/06/19 04/06/19 17:22 00:13 04:44 WBC RBC 2.48 L Hgb 7.5 L Hct 22.9 L MCV MCHC RDW 16.0 H Plt Count 107 L Lymph % (Auto) [place] % (Auto) 10.7 H Lymph # 1.0 L [place] # Seg Neutrophils % Seg Neuts % (Manual) Lymphocytes % (Manual) Monocytes % (Manual) Nucleated RBC % Seg Neutrophils # Seg Neutrophils # Man Lymphocytes # (Manual) Monocytes # (Manual) PT INR D-Dimer Heparin Anti-Xa Level POC ABG pH ABG pH POC ABG pCO2 POC ABG pO2 ABG pO2 ABG HCO3 ABG O2 Saturation ABG Base Excess ABG Hemoglobin Oxyhemoglobin Sodium Potassium Chloride Carbon Dioxide BUN Creatinine Glucose POC Glucose 118 H 138 H Lactic Acid Calcium Ionized Calcium Phosphorus Magnesium Iron TIBC Ferritin Total Bilirubin Direct Bilirubin AST ALT Alkaline Phosphatase Total Creatine Kinase CK-MB (CK-2) Troponin T C-Reactive Protein Total Protein Albumin Triglycerides LDL Cholesterol Direct HDL Cholesterol Free T4 PTH Intact Urine WBC (Auto) Urine Creatinine Salicylates Acetaminophen Crossmatch 04/06/19 04/06/19 04/06/19 04:44 05:20 05:23 WBC RBC Hgb Hct MCV MCHC RDW Plt Count Lymph % (Auto) [place] % (Auto) Lymph # [place] # Seg Neutrophils % Seg Neuts % (Manual) Lymphocytes % (Manual) Monocytes % (Manual) Nucleated RBC % Seg Neutrophils # Seg Neutrophils # Man Lymphocytes # (Manual) Monocytes # (Manual) PT INR D-Dimer Heparin Anti-Xa Level POC ABG pH ABG pH POC ABG pCO2 POC ABG pO2 ABG pO2 104.0 H ABG HCO3 ABG O2 Saturation ABG Base Excess -2.1 L ABG Hemoglobin 7.3 L Oxyhemoglobin Sodium Potassium Chloride Carbon Dioxide BUN 64 H Creatinine 8.2 H Glucose 103 H POC Glucose 118 H Lactic Acid Calcium 7.3 L Ionized Calcium Phosphorus Magnesium Iron TIBC Ferritin Total Bilirubin Direct Bilirubin AST ALT Alkaline Phosphatase Total Creatine Kinase CK-MB (CK-2) Troponin T C-Reactive Protein Total Protein Albumin Triglycerides LDL Cholesterol Direct HDL Cholesterol Free T4 PTH Intact Urine WBC (Auto) Urine Creatinine Salicylates Acetaminophen Crossmatch 04/06/19 04/07/19 04/07/19 12:02 05:40 05:40 WBC RBC 2.59 L Hgb 7.9 L Hct 23.8 L MCV MCHC RDW 15.8 H Plt Count 89 L Lymph % (Auto) [place] % (Auto) 10.3 H Lymph # 1.1 L [place] # Seg Neutrophils % Seg Neuts % (Manual) Lymphocytes % (Manual) Monocytes % (Manual) Nucleated RBC % Seg Neutrophils # Seg Neutrophils # Man Lymphocytes # (Manual) Monocytes # (Manual) PT INR D-Dimer Heparin Anti-Xa Level POC ABG pH ABG pH POC ABG pCO2 POC ABG pO2 ABG pO2 ABG HCO3 ABG O2 Saturation ABG Base Excess ABG Hemoglobin Oxyhemoglobin Sodium 136 L Potassium 3.5 L Chloride Carbon Dioxide BUN 46 H Creatinine 6.2 H Glucose POC Glucose 108 H Lactic Acid Calcium 7.9 L Ionized Calcium Phosphorus Magnesium Iron TIBC Ferritin Total Bilirubin Direct Bilirubin AST ALT Alkaline Phosphatase Total Creatine Kinase CK-MB (CK-2) Troponin T C-Reactive Protein Total Protein Albumin Triglycerides LDL Cholesterol Direct HDL Cholesterol Free T4 PTH Intact Urine WBC (Auto) Urine Creatinine Salicylates Acetaminophen Crossmatch 04/07/19 04/09/19 04/09/19 12:57 04:28 04:28 WBC RBC 2.85 L Hgb 8.7 L Hct 26.2 L MCV MCHC RDW 15.6 H Plt Count Lymph % (Auto) [place] % (Auto) 10.4 H Lymph # 1.0 L [place] # Seg Neutrophils % 73.3 H Seg Neuts % (Manual) Lymphocytes % (Manual) Monocytes % (Manual) Nucleated RBC % Seg Neutrophils # Seg Neutrophils # Man Lymphocytes # (Manual) Monocytes # (Manual) PT INR D-Dimer Heparin Anti-Xa Level POC ABG pH ABG pH POC ABG pCO2 POC ABG pO2 107 H ABG pO2 ABG HCO3 ABG O2 Saturation ABG Base Excess ABG Hemoglobin Oxyhemoglobin Sodium Potassium 3.5 L Chloride 97.8 L Carbon Dioxide BUN 62 H Creatinine 8.1 H Glucose POC Glucose Lactic Acid Calcium 8.2 L Ionized Calcium Phosphorus 5.10 H Magnesium Iron TIBC Ferritin Total Bilirubin Direct Bilirubin AST ALT Alkaline Phosphatase Total Creatine Kinase CK-MB (CK-2) Troponin T C-Reactive Protein Total Protein Albumin Triglycerides LDL Cholesterol Direct HDL Cholesterol Free T4 PTH Intact Urine WBC (Auto) Urine Creatinine Salicylates Acetaminophen Crossmatch 04/10/19 04/11/19 04/11/19 18:15 00:25 04:16 WBC 11.5 H RBC 2.91 L Hgb 8.9 L Hct 27.6 L MCV 95 H MCHC RDW 17.5 H Plt Count Lymph % (Auto) [place] % (Auto) Lymph # [place] # Seg Neutrophils % Seg Neuts % (Manual) 71.0 H Lymphocytes % (Manual) Monocytes % (Manual) 8.0 H Nucleated RBC % Seg Neutrophils # Seg Neutrophils # Man 8.2 H Lymphocytes # (Manual) Monocytes # (Manual) 0.9 H PT INR D-Dimer Heparin Anti-Xa Level POC ABG pH ABG pH POC ABG pCO2 POC ABG pO2 ABG pO2 ABG HCO3 ABG O2 Saturation ABG Base Excess ABG Hemoglobin Oxyhemoglobin Sodium Potassium Chloride Carbon Dioxide BUN Creatinine Glucose POC Glucose 109 H 114 H Lactic Acid Calcium Ionized Calcium Phosphorus Magnesium Iron TIBC Ferritin Total Bilirubin Direct Bilirubin AST ALT Alkaline Phosphatase Total Creatine Kinase CK-MB (CK-2) Troponin T C-Reactive Protein Total Protein Albumin Triglycerides LDL Cholesterol Direct HDL Cholesterol Free T4 PTH Intact Urine WBC (Auto) Urine Creatinine Salicylates Acetaminophen Crossmatch 04/11/19 04/11/19 04/11/19 06:47 09:21 12:15 WBC RBC Hgb Hct MCV MCHC RDW Plt Count Lymph % (Auto) [place] % (Auto) Lymph # [place] # Seg Neutrophils % Seg Neuts % (Manual) Lymphocytes % (Manual) Monocytes % (Manual) Nucleated RBC % Seg Neutrophils # Seg Neutrophils # Man Lymphocytes # (Manual) Monocytes # (Manual) PT INR D-Dimer Heparin Anti-Xa Level POC ABG pH ABG pH POC ABG pCO2 POC ABG pO2 ABG pO2 ABG HCO3 ABG O2 Saturation ABG Base Excess ABG Hemoglobin Oxyhemoglobin Sodium Potassium 3.5 L Chloride Carbon Dioxide BUN 45 H Creatinine 6.0 H Glucose 113 H POC Glucose 106 H 109 H Lactic Acid Calcium Ionized Calcium Phosphorus Magnesium Iron TIBC Ferritin Total Bilirubin Direct Bilirubin AST ALT Alkaline Phosphatase Total Creatine Kinase CK-MB (CK-2) Troponin T C-Reactive Protein Total Protein Albumin Triglycerides LDL Cholesterol Direct HDL Cholesterol Free T4 PTH Intact Urine WBC (Auto) Urine Creatinine Salicylates Acetaminophen Crossmatch 04/11/19 04/12/19 04/12/19 18:42 12:13 23:52 WBC RBC Hgb Hct MCV MCHC RDW Plt Count Lymph % (Auto) [place] % (Auto) Lymph # [place] # Seg Neutrophils % Seg Neuts % (Manual) Lymphocytes % (Manual) Monocytes % (Manual) Nucleated RBC % Seg Neutrophils # Seg Neutrophils # Man Lymphocytes # (Manual) Monocytes # (Manual) PT INR D-Dimer Heparin Anti-Xa Level POC ABG pH ABG pH POC ABG pCO2 POC ABG pO2 ABG pO2 ABG HCO3 ABG O2 Saturation ABG Base Excess ABG Hemoglobin Oxyhemoglobin Sodium Potassium Chloride Carbon Dioxide BUN Creatinine Glucose POC Glucose 107 H 115 H 124 H Lactic Acid Calcium Ionized Calcium Phosphorus Magnesium Iron TIBC Ferritin Total Bilirubin Direct Bilirubin AST ALT Alkaline Phosphatase Total Creatine Kinase CK-MB (CK-2) Troponin T C-Reactive Protein Total Protein Albumin Triglycerides LDL Cholesterol Direct HDL Cholesterol Free T4 PTH Intact Urine WBC (Auto) Urine Creatinine Salicylates Acetaminophen Crossmatch 04/13/19 04/13/19 04/13/19 05:00 05:00 05:47 WBC 11.7 H RBC 2.97 L Hgb 8.8 L Hct 27.3 L MCV MCHC RDW 16.1 H Plt Count Lymph % (Auto) 9.5 L [place] % (Auto) 9.9 H Lymph # 1.1 L [place] # 1.2 H Seg Neutrophils % 78.6 H Seg Neuts % (Manual) Lymphocytes % (Manual) Monocytes % (Manual) Nucleated RBC % Seg Neutrophils # 9.2 H Seg Neutrophils # Man Lymphocytes # (Manual) Monocytes # (Manual) PT INR D-Dimer Heparin Anti-Xa Level POC ABG pH ABG pH POC ABG pCO2 POC ABG pO2 ABG pO2 ABG HCO3 ABG O2 Saturation ABG Base Excess ABG Hemoglobin Oxyhemoglobin Sodium Potassium 3.5 L Chloride Carbon Dioxide BUN 42 H Creatinine 4.6 H Glucose 106 H POC Glucose 107 H Lactic Acid Calcium 10.6 H D Ionized Calcium Phosphorus 5.90 H Magnesium Iron TIBC Ferritin Total Bilirubin Direct Bilirubin AST ALT Alkaline Phosphatase Total Creatine Kinase CK-MB (CK-2) Troponin T C-Reactive Protein Total Protein 5.8 L Albumin 2.5 L Triglycerides LDL Cholesterol Direct HDL Cholesterol Free T4 PTH Intact Urine WBC (Auto) Urine Creatinine Salicylates Acetaminophen Crossmatch 04/13/19 04/14/19 04/14/19 17:32 00:00 03:55 WBC RBC Hgb Hct MCV MCHC RDW Plt Count Lymph % (Auto) [place] % (Auto) Lymph # [place] # Seg Neutrophils % Seg Neuts % (Manual) Lymphocytes % (Manual) Monocytes % (Manual) Nucleated RBC % Seg Neutrophils # Seg Neutrophils # Man Lymphocytes # (Manual) Monocytes # (Manual) PT INR D-Dimer Heparin Anti-Xa Level POC ABG pH ABG pH POC ABG pCO2 POC ABG pO2 ABG pO2 ABG HCO3 ABG O2 Saturation ABG Base Excess ABG Hemoglobin Oxyhemoglobin Sodium Potassium 3.0 L Chloride Carbon Dioxide BUN 30 H Creatinine 3.1 H Glucose POC Glucose 112 H 120 H Lactic Acid Calcium 10.8 H Ionized Calcium Phosphorus Magnesium Iron TIBC Ferritin Total Bilirubin Direct Bilirubin AST ALT Alkaline Phosphatase Total Creatine Kinase CK-MB (CK-2) Troponin T C-Reactive Protein Total Protein Albumin Triglycerides LDL Cholesterol Direct HDL Cholesterol Free T4 PTH Intact Urine WBC (Auto) Urine Creatinine Salicylates Acetaminophen Crossmatch 04/14/19 04/14/19 04/15/19 11:56 23:28 05:11 WBC 13.0 H RBC 2.93 L Hgb 8.6 L Hct 26.5 L MCV MCHC RDW 16.5 H Plt Count Lymph % (Auto) 12.2 L [place] % (Auto) 9.1 H Lymph # [place] # 1.2 H Seg Neutrophils % 77.6 H Seg Neuts % (Manual) Lymphocytes % (Manual) Monocytes % (Manual) Nucleated RBC % Seg Neutrophils # 10.1 H Seg Neutrophils # Man Lymphocytes # (Manual) Monocytes # (Manual) PT INR D-Dimer Heparin Anti-Xa Level POC ABG pH ABG pH POC ABG pCO2 POC ABG pO2 ABG pO2 ABG HCO3 ABG O2 Saturation ABG Base Excess ABG Hemoglobin Oxyhemoglobin Sodium Potassium Chloride Carbon Dioxide BUN Creatinine Glucose POC Glucose 109 H 112 H Lactic Acid Calcium Ionized Calcium Phosphorus Magnesium Iron TIBC Ferritin Total Bilirubin Direct Bilirubin AST ALT Alkaline Phosphatase Total Creatine Kinase CK-MB (CK-2) Troponin T C-Reactive Protein Total Protein Albumin Triglycerides LDL Cholesterol Direct HDL Cholesterol Free T4 PTH Intact Urine WBC (Auto) Urine Creatinine Salicylates Acetaminophen Crossmatch 04/15/19 04/15/19 04/15/19 05:11 05:31 18:03 WBC RBC Hgb Hct MCV MCHC RDW Plt Count Lymph % (Auto) [place] % (Auto) Lymph # [place] # Seg Neutrophils % Seg Neuts % (Manual) Lymphocytes % (Manual) Monocytes % (Manual) Nucleated RBC % Seg Neutrophils # Seg Neutrophils # Man Lymphocytes # (Manual) Monocytes # (Manual) PT INR D-Dimer Heparin Anti-Xa Level POC ABG pH ABG pH POC ABG pCO2 POC ABG pO2 ABG pO2 ABG HCO3 ABG O2 Saturation ABG Base Excess ABG Hemoglobin Oxyhemoglobin Sodium Potassium 3.2 L Chloride Carbon Dioxide BUN 44 H Creatinine 3.6 H Glucose 106 H POC Glucose 110 H 121 H Lactic Acid Calcium 12.0 H Ionized Calcium Phosphorus 5.00 H Magnesium Iron TIBC Ferritin Total Bilirubin Direct Bilirubin AST ALT Alkaline Phosphatase Total Creatine Kinase CK-MB (CK-2) Troponin T C-Reactive Protein Total Protein Albumin Triglycerides LDL Cholesterol Direct HDL Cholesterol Free T4 PTH Intact Urine WBC (Auto) Urine Creatinine Salicylates Acetaminophen Crossmatch 04/16/19 04/16/19 04/17/19 05:07 05:07 04:15 WBC 12.6 H RBC 3.12 L Hgb 9.0 L Hct 28.2 L MCV MCHC RDW 16.6 H Plt Count Lymph % (Auto) 10.3 L [place] % (Auto) 9.8 H Lymph # [place] # 1.2 H Seg Neutrophils % 78.2 H Seg Neuts % (Manual) Lymphocytes % (Manual) Monocytes % (Manual) Nucleated RBC % Seg Neutrophils # 9.9 H Seg Neutrophils # Man Lymphocytes # (Manual) Monocytes # (Manual) PT INR D-Dimer Heparin Anti-Xa Level POC ABG pH ABG pH POC ABG pCO2 POC ABG pO2 ABG pO2 ABG HCO3 ABG O2 Saturation ABG Base Excess ABG Hemoglobin Oxyhemoglobin Sodium 147 H 150 H Potassium 3.5 L 3.1 L Chloride Carbon Dioxide 32 H BUN 54 H 65 H Creatinine 3.8 H 4.0 H Glucose 102 H 107 H POC Glucose Lactic Acid Calcium 11.7 H 12.0 H Ionized Calcium Phosphorus 5.40 H Magnesium Iron TIBC Ferritin Total Bilirubin Direct Bilirubin AST ALT Alkaline Phosphatase Total Creatine Kinase CK-MB (CK-2) Troponin T C-Reactive Protein 7.10 H Total Protein Albumin Triglycerides LDL Cholesterol Direct HDL Cholesterol Free T4 PTH Intact Urine WBC (Auto) Urine Creatinine Salicylates Acetaminophen Crossmatch 04/17/19 04/17/19 04/17/19 04:15 06:05 12:49 WBC 15.8 H RBC 3.32 L Hgb 9.5 L Hct 29.9 L MCV MCHC RDW 16.9 H Plt Count Lymph % (Auto) 12.6 L [place] % (Auto) 11.1 H Lymph # [place] # 1.7 H Seg Neutrophils % 74.7 H Seg Neuts % (Manual) Lymphocytes % (Manual) Monocytes % (Manual) Nucleated RBC % Seg Neutrophils # 11.8 H Seg Neutrophils # Man Lymphocytes # (Manual) Monocytes # (Manual) PT INR D-Dimer Heparin Anti-Xa Level POC ABG pH ABG pH POC ABG pCO2 POC ABG pO2 ABG pO2 ABG HCO3 ABG O2 Saturation ABG Base Excess ABG Hemoglobin Oxyhemoglobin Sodium Potassium Chloride Carbon Dioxide BUN Creatinine Glucose POC Glucose 111 H 108 H Lactic Acid Calcium Ionized Calcium Phosphorus Magnesium Iron TIBC Ferritin Total Bilirubin Direct Bilirubin AST ALT Alkaline Phosphatase Total Creatine Kinase CK-MB (CK-2) Troponin T C-Reactive Protein Total Protein Albumin Triglycerides LDL Cholesterol Direct HDL Cholesterol Free T4 PTH Intact Urine WBC (Auto) Urine Creatinine Salicylates Acetaminophen Crossmatch 04/18/19 04/18/19 04/18/19 00:23 04:41 04:41 WBC 19.4 H RBC 3.03 L Hgb 8.6 L Hct 27.5 L MCV MCHC 31 L RDW 16.9 H Plt Count Lymph % (Auto) [place] % (Auto) Lymph # [place] # Seg Neutrophils % Seg Neuts % (Manual) Lymphocytes % (Manual) Monocytes % (Manual) Nucleated RBC % Seg Neutrophils # Seg Neutrophils # Man Lymphocytes # (Manual) Monocytes # (Manual) PT INR D-Dimer Heparin Anti-Xa Level POC ABG pH ABG pH POC ABG pCO2 POC ABG pO2 ABG pO2 ABG HCO3 ABG O2 Saturation ABG Base Excess ABG Hemoglobin Oxyhemoglobin Sodium 152 H Potassium 3.0 L Chloride Carbon Dioxide BUN 80 H Creatinine 4.3 H Glucose 103 H POC Glucose 115 H Lactic Acid Calcium 11.4 H Ionized Calcium Phosphorus Magnesium Iron TIBC Ferritin Total Bilirubin Direct Bilirubin AST ALT Alkaline Phosphatase Total Creatine Kinase CK-MB (CK-2) Troponin T C-Reactive Protein Total Protein Albumin Triglycerides LDL Cholesterol Direct HDL Cholesterol Free T4 PTH Intact Urine WBC (Auto) Urine Creatinine Salicylates Acetaminophen Crossmatch 04/18/19 04/18/19 04/18/19 06:17 12:16 18:10 WBC RBC Hgb Hct MCV MCHC RDW Plt Count Lymph % (Auto) [place] % (Auto) Lymph # [place] # Seg Neutrophils % Seg Neuts % (Manual) Lymphocytes % (Manual) Monocytes % (Manual) Nucleated RBC % Seg Neutrophils # Seg Neutrophils # Man Lymphocytes # (Manual) Monocytes # (Manual) PT INR D-Dimer Heparin Anti-Xa Level POC ABG pH ABG pH POC ABG pCO2 POC ABG pO2 ABG pO2 ABG HCO3 ABG O2 Saturation ABG Base Excess ABG Hemoglobin Oxyhemoglobin Sodium Potassium Chloride Carbon Dioxide BUN Creatinine Glucose POC Glucose 124 H 119 H 111 H Lactic Acid Calcium Ionized Calcium Phosphorus Magnesium Iron TIBC Ferritin Total Bilirubin Direct Bilirubin AST ALT Alkaline Phosphatase Total Creatine Kinase CK-MB (CK-2) Troponin T C-Reactive Protein Total Protein Albumin Triglycerides LDL Cholesterol Direct HDL Cholesterol Free T4 PTH Intact Urine WBC (Auto) Urine Creatinine Salicylates Acetaminophen Crossmatch 04/19/19 04/19/19 04/20/19 03:49 05:27 09:09 WBC RBC Hgb Hct MCV MCHC RDW Plt Count Lymph % (Auto) [place] % (Auto) Lymph # [place] # Seg Neutrophils % Seg Neuts % (Manual) Lymphocytes % (Manual) Monocytes % (Manual) Nucleated RBC % Seg Neutrophils # Seg Neutrophils # Man Lymphocytes # (Manual) Monocytes # (Manual) PT INR D-Dimer Heparin Anti-Xa Level POC ABG pH ABG pH POC ABG pCO2 POC ABG pO2 ABG pO2 ABG HCO3 ABG O2 Saturation ABG Base Excess ABG Hemoglobin Oxyhemoglobin Sodium 147 H 150 H Potassium 3.3 L Chloride 108.9 H Carbon Dioxide BUN 45 H 70 H Creatinine 2.9 H 4.1 H Glucose 105 H POC Glucose 124 H Lactic Acid Calcium 10.6 H 11.6 H Ionized Calcium Phosphorus Magnesium Iron TIBC Ferritin Total Bilirubin Direct Bilirubin AST ALT Alkaline Phosphatase Total Creatine Kinase CK-MB (CK-2) Troponin T C-Reactive Protein Total Protein Albumin Triglycerides LDL Cholesterol Direct HDL Cholesterol Free T4 PTH Intact Urine WBC (Auto) Urine Creatinine Salicylates Acetaminophen Crossmatch 04/20/19 04/20/19 04/21/19 12:29 18:45 01:34 WBC RBC Hgb Hct MCV MCHC RDW Plt Count Lymph % (Auto) [place] % (Auto) Lymph # [place] # Seg Neutrophils % Seg Neuts % (Manual) Lymphocytes % (Manual) Monocytes % (Manual) Nucleated RBC % Seg Neutrophils # Seg Neutrophils # Man Lymphocytes # (Manual) Monocytes # (Manual) PT INR D-Dimer Heparin Anti-Xa Level POC ABG pH ABG pH POC ABG pCO2 POC ABG pO2 ABG pO2 ABG HCO3 ABG O2 Saturation ABG Base Excess ABG Hemoglobin Oxyhemoglobin Sodium Potassium Chloride Carbon Dioxide BUN 40 H Creatinine 2.6 H Glucose 104 H POC Glucose 131 H 134 H Lactic Acid Calcium 11.0 H Ionized Calcium Phosphorus Magnesium Iron TIBC Ferritin Total Bilirubin Direct Bilirubin AST ALT Alkaline Phosphatase Total Creatine Kinase CK-MB (CK-2) Troponin T C-Reactive Protein Total Protein Albumin Triglycerides LDL Cholesterol Direct HDL Cholesterol Free T4 PTH Intact Urine WBC (Auto) Urine Creatinine Salicylates Acetaminophen Crossmatch 04/21/19 04/22/19 04/22/19 04:22 04:24 04:24 WBC 14.2 H 14.3 H RBC 3.02 L 3.57 L Hgb 8.7 L 10.1 L Hct 27.2 L 32.1 L MCV MCHC RDW 16.7 H 17.2 H Plt Count Lymph % (Auto) [place] % (Auto) Lymph # [place] # Seg Neutrophils % Seg Neuts % (Manual) Lymphocytes % (Manual) Monocytes % (Manual) Nucleated RBC % Seg Neutrophils # Seg Neutrophils # Man Lymphocytes # (Manual) Monocytes # (Manual) PT INR D-Dimer Heparin Anti-Xa Level POC ABG pH ABG pH POC ABG pCO2 POC ABG pO2 ABG pO2 ABG HCO3 ABG O2 Saturation ABG Base Excess ABG Hemoglobin Oxyhemoglobin Sodium Potassium Chloride Carbon Dioxide BUN 54 H Creatinine 3.5 H Glucose POC Glucose Lactic Acid Calcium 11.4 H Ionized Calcium Phosphorus Magnesium Iron TIBC Ferritin Total Bilirubin Direct Bilirubin AST ALT Alkaline Phosphatase Total Creatine Kinase CK-MB (CK-2) Troponin T C-Reactive Protein Total Protein Albumin Triglycerides LDL Cholesterol Direct HDL Cholesterol Free T4 PTH Intact Urine WBC (Auto) Urine Creatinine Salicylates Acetaminophen Crossmatch 04/22/19 04/22/19 04/22/19 06:37 11:57 18:33 WBC RBC Hgb Hct MCV MCHC RDW Plt Count Lymph % (Auto) [place] % (Auto) Lymph # [place] # Seg Neutrophils % Seg Neuts % (Manual) Lymphocytes % (Manual) Monocytes % (Manual) Nucleated RBC % Seg Neutrophils # Seg Neutrophils # Man Lymphocytes # (Manual) Monocytes # (Manual) PT INR D-Dimer Heparin Anti-Xa Level POC ABG pH ABG pH POC ABG pCO2 POC ABG pO2 ABG pO2 ABG HCO3 ABG O2 Saturation ABG Base Excess ABG Hemoglobin Oxyhemoglobin Sodium Potassium Chloride Carbon Dioxide BUN Creatinine Glucose POC Glucose 113 H 110 H 120 H Lactic Acid Calcium Ionized Calcium Phosphorus Magnesium Iron TIBC Ferritin Total Bilirubin Direct Bilirubin AST ALT Alkaline Phosphatase Total Creatine Kinase CK-MB (CK-2) Troponin T C-Reactive Protein Total Protein Albumin Triglycerides LDL Cholesterol Direct HDL Cholesterol Free T4 PTH Intact Urine WBC (Auto) Urine Creatinine Salicylates Acetaminophen Crossmatch 04/23/19 04/23/19 04:06 04:06 WBC 16.1 H RBC 3.36 L Hgb 9.8 L Hct 30.8 L MCV MCHC RDW 17.7 H Plt Count Lymph % (Auto) 9.9 L [place] % (Auto) Lymph # [place] # Seg Neutrophils % 84.2 H Seg Neuts % (Manual) Lymphocytes % (Manual) Monocytes % (Manual) Nucleated RBC % Seg Neutrophils # 13.6 H Seg Neutrophils # Man Lymphocytes # (Manual) Monocytes # (Manual) PT INR D-Dimer Heparin Anti-Xa Level POC ABG pH ABG pH POC ABG pCO2 POC ABG pO2 ABG pO2 ABG HCO3 ABG O2 Saturation ABG Base Excess ABG Hemoglobin Oxyhemoglobin Sodium Potassium Chloride Carbon Dioxide BUN 59 H Creatinine 3.8 H Glucose POC Glucose Lactic Acid Calcium 12.3 H* Ionized Calcium Phosphorus 5.70 H Magnesium Iron TIBC Ferritin Total Bilirubin Direct Bilirubin AST ALT Alkaline Phosphatase Total Creatine Kinase CK-MB (CK-2) Troponin T C-Reactive Protein Total Protein Albumin 3.2 L Triglycerides LDL Cholesterol Direct HDL Cholesterol Free T4 PTH Intact Urine WBC (Auto) Urine Creatinine Salicylates Acetaminophen Crossmatch Allied health notes reviewed: nursing
--- NOTE | 2019-04-23 15:16 | Progress Note ---
Assessment and Plan Cont present cardiac management. No systemic AC regarding AFib in setting of anemia, thrombocytopenia, GI bleed. Can consider ischemic evaluation (stress test) once medically stabilized. Will follow peripherally. The patient has been seen in conjunction with Dr. Rojas who agrees with the assessment and plan of care. - Patient Problems (1) Cardiopulmonary arrest Current Visit: Yes Status: Acute (2) Acute respiratory failure Current Visit: Yes Status: Acute Qualifiers: Respiratory failure complication: hypoxia Qualified Code(s): J96.01 - Acute respiratory failure with hypoxia (3) Paroxysmal atrial fibrillation with RVR Current Visit: Yes Status: Acute (4) SVT (supraventricular tachycardia) Current Visit: Yes Status: Acute (5) Torsades de pointes Current Visit: Yes Status: Acute (6) Ventricular tachycardia Current Visit: Yes Status: Acute (7) Encephalopathy Current Visit: Yes Status: Acute (8) Septic shock Current Visit: Yes Status: Acute (9) Aspiration pneumonia Current Visit: Yes Status: Acute Qualifiers: Aspiration pneumonia type: unspecified (10) Meningitis Current Visit: Yes Status: Suspected (11) Cellulitis Current Visit: Yes Status: Acute (12) Acute renal failure Current Visit: Yes Status: Acute Qualifiers: Acute renal failure type: with acute tubular necrosis Qualified Code(s): N17.0 - Acute kidney failure with tubular necrosis (13) GI bleed Current Visit: Yes Status: Acute (14) Anemia Current Visit: Yes Status: Acute (15) Thrombocytopenia Current Visit: Yes Status: Resolved (16) DVT (deep venous thrombosis) Current Visit: Yes Status: Acute Subjective Date of service: 04/23/19 Principal diagnosis: Acute respr failure, Afib, Aspr Pneumonia, anemia - IJ DVt rt side Interval history: pt resting in bed, awake and alert, in SR. Objective Last Vital Signs Temp 98.4 F 04/23/19 12:00 Pulse 77 04/23/19 12:01 Resp 31 H 04/23/19 12:00 BP 130/78 04/23/19 12:01 Pulse Ox 98 04/23/19 12:01 - Physical Examination General: No Apparent Distress HEENT: Positive: EOMI, Normocephaly, Mucus Membranes Moist Neck: Positive: neck supple, trachea midline Cardiac: Positive: Reg Rate and Rhythm, S1/S2 Lungs: Positive: Decreased Breath Sounds Neuro: Positive: Grossly Intact, Other (awake, alert and oriented) Abdomen: Positive: Soft, Active Bowel Sounds. Negative: Tender /Rectal: Other (deferred) Skin: Positive: Clear. Negative: Rash Musculoskeletal: Normal Range of Motion Extremities: Present: normal. Absent: edema - Labs and Meds Cardiac Enzymes 04/23/19 Range/Units 04:06 AST 30 (5-40) units/L CBC 04/23/19 Range/Units 04:06 WBC 16.1 H (4.5-11.0) K/mm3 RBC 3.36 L (3.65-5.03) M/mm3 Hgb 9.8 L (11.8-15.2) gm/dl Hct 30.8 L (35.5-45.6) % Plt Count 293 (140-440) K/mm3 Lymph # 1.6 (1.2-5.4) K/mm3 Day # 0.7 (0.0-0.8) K/mm3 Eos # 0.2 (0.0-0.4) K/mm3 Baso # 0.1 (0.0-0.1) K/mm3 Comprehensive Metabolic Panel 04/23/19 Range/Units 04:06 Sodium 140 (137-145) mmol/L Potassium 4.2 (3.6-5.0) mmol/L Chloride 98.4 (98-107) mmol/L Carbon Dioxide 27 (22-30) mmol/L BUN 59 H (9-20) mg/dL Creatinine 3.8 H (0.8-1.5) mg/dL Glucose 87 (75-100) mg/dL Calcium 12.3 H* (8.4-10.2) mg/dL AST 30 (5-40) units/L ALT 43 (7-56) units/L Alkaline Phosphatase 60 (35-129) units/L Total Protein 7.2 (6.3-8.2) g/dL Albumin 3.2 L (3.9-5) g/dL - Imaging and Cardiology Echo: report reviewed ( EF 40-45%, impaired relaxation. ) - EKG Sinus rhythms and dysrhythmias: sinus rhythm - Allied health notes Allied health notes reviewed: nursing
--- NOTE | 2019-04-23 16:03 | Progress Note ---
Assessment and Plan Cultures: 03/16/2019 sputum: salivary contamination 03/16/2019 Blood culture: no growth 03/17/2019 Urine culture no growth 03/17/2019 throat culture: no growth 03/26/2019 Blood culture: no growth 03/27/2019 Blood culture negative. 04/04/2019 blood culture NGTD 04/05/2019 urine culture: no growth 04/11/2019 blood culture: no growth 04/15/2019 blood culture: no growth Assessment: 43y/o male with possible psych history admitted on 03/16/2019 with: 1) Septic shock: Resolved. Fever after right IJ exchanged overwire on 03/27, fever had improved. Brain MRI showed no acute intracranial abnormality, mild nonspecific chronic white matter changes, fluid throughout the sinuses and mastoid air cells. Venous US + right IJ DVT. Completed empiric Cefepime x 10 days on 04/06/2019. Initial septic shock - Possible Infectious etiology v/s possibility of Neuroleptic Malignant Syndrome given psych history, high fever of 105F and extremely elevated CPK of >100K. Unclear if he was on any psych med. From ID standpoint, we will continue broad coverage for acute bacterial meningitis, tick borne illness, aspiration pneumonia. Blood culture negative UA with mild pyuria. HIV rapid negative. Strep A rapid ag negative. No obvious infectious source identified yet. 2) High fevers with elevated WBC: ?drug fever v/s infected HD cath. Blood cultures have remained negative. CXR with no obvious pneumonia. 3) Probable aspiration pneumonia, fluid overload, acute resp failure: on oxygen. Previously completed abx. 4) Acute encephalopathy: improving, awake, alert, calm. 5) Acute renal failure: renally dosing all abx, now on iHD. 6) Elevated LFTs/shock liver: resolved. 7) Thrombocytopenia: platelet normalized. 8) Rhabdomyolysis: CK normalized. 9) Multiple superficial wounds: do not appear infected. Continue wound care. Recommendations: continue renally adjusted IV aztreonam and linezolid for now given worsening white count. f/u LANDY, C3, C4 Continue wound care Subjective Date of service: 04/23/19 Principal diagnosis: Acute respr failure, Afib, Aspr Pneumonia, anemia - IJ DVt rt side Interval history: Awake, alert. No acute complaints. Objective - Exam Narrative Exam: General appearance: alert, awake Eyes: pupils dannie contracted poorly reactive, no jaundice HENT: Atraumatic; oropharynx with ETT/OGT Neck: no JVD Lungs:distant BS CV: RRR Abdomen: Soft, non-tender Extremities: marked dannie leg edema/arm edema Skin:no rash, +scrotal edema Psych: NAD Neuro: Normal strength - Constitutional Vitals: Vital Signs Temp Pulse Resp BP Pulse Ox 98.4 F 77 31 H 130/78 98 04/23/19 12:00 04/23/19 12:01 04/23/19 12:00 04/23/19 12:01 04/23/19 12:01 Temperature -Last 24 Hours Temperature 98.4 F Temperature 98.1 F Temperature 98.3 F Temperature 98.9 F Temperature 99.4 F - Labs CBC & Chem 7: 04/23/19 04:06 04/23/19 04:06 Labs: Abnormal lab results 04/22/19 04/23/19 04/23/19 Range/Units 18:33 04:06 04:06 WBC 16.1 H (4.5-11.0) K/mm3 RBC 3.36 L (3.65-5.03) M/mm3 Hgb 9.8 L (11.8-15.2) gm/dl Hct 30.8 L (35.5-45.6) % RDW 17.7 H (13.2-15.2) % Lymph % (Auto) 9.9 L (13.4-35.0) % Seg Neutrophils % 84.2 H (40.0-70.0) % Seg Neutrophils # 13.6 H (1.8-7.7) K/mm3 BUN 59 H (9-20) mg/dL Creatinine 3.8 H (0.8-1.5) mg/dL POC Glucose 120 H (70-105) Calcium 12.3 H* (8.4-10.2) mg/dL Phosphorus 5.70 H (2.5-4.5) mg/dL Albumin 3.2 L (3.9-5) g/dL
[2019-04-24 04:59] LABS: Basophils # (Auto) 0.1 K/mm3 (0.0-0.1); Basophils % (Auto) 0.7 % (0.0-1.8); Eosinophils # (Auto) 0.3 K/mm3 (0.0-0.4); Eosinophils % (Auto) 1.8 % (0.0-4.3); Hematocrit 31.2 % (35.5-45.6); Hemoglobin 9.8 gm/dl (11.8-15.2); Lymphocytes % (Auto) 11.1 % (13.4-35.0); Mean Corpuscular HGB Conc 31 % (32-34); Mean Corpuscular Volume 90 fl (84-94); Monocytes # (Auto) 0.8 K/mm3 (0.0-0.8); Monocytes % (Auto) 4.5 % (0.0-7.3); Platelet Count 363 K/mm3 (140-440); Red Blood Count 3.46 M/mm3 (3.65-5.03); Red Cell Distribution Width 17.5 % (13.2-15.2)
[2019-04-24] MEDS: LINEZOLID 600 MG/300 ML BAG IV SCH ×2 (05:00→17:23)
[2019-04-24 05:16] LABS: Albumin 3.2 g/dL (3.9-5)
[2019-04-24 05:21] LABS: Calcium 12.6 mg/dL (8.4-10.2)
--- NOTE | 2019-04-24 08:02 | Hem/Onc Progress Note ---
Assessment and Plan 1. h/o Anemia. The patient has history of bleeding. 2. rt Internal jugular partial thrombosis. The patient was started on heparin. This has been held due to bleeding 3. Gastrointestinal bleed. 4. h/o Elevated creatinine kinase. 5. h/o Low calcium. 6. h/o Thrombocytopenia. 7. h/o Renal failure. 8. h/o Intubation. 9. s/p Transfusion support. 10. Leukocytosis. At this time, supportive care may help the patient. The patient's platelet was low at admission. Urine toxicology was negative. awake h/o rt IJ dvt - off anticoagulation - due to bleeding platelet - > 100 s/p iv iron trial pt was on BIPAP - then o2 support h/o tachycardia - on meds - RT IJ line remvoed moving arms>legs left arm swelling -dvt study negative for left arm rt IJ dvt is better d/w pt reg DVT - bleed - anemia - Patient Problems (1) DVT (deep venous thrombosis) Current Visit: Yes Status: Acute Subjective Date of service: 04/24/19 Principal diagnosis: anemia - rt IJ dvt Interval history: sitting on bed - feeling better Objective - Exam Narrative Exam: Pain - none now General appearance - awake Performance status limited self care Eyes - no icterus ENT - extubated LNs cervical not palpable Neck - no LN Respiratory Normal Breath sounds - CTA anteriorly CVS S1 S2 + Extremities edema + better General GI Soft Rectal deferred male - deferred Skin warm Musculoskeletal arms>legs Neurologically awake - Constitutional Vitals: Last Vital Signs Temp 98.3 F 04/24/19 04:18 Pulse 80 04/24/19 06:00 Resp 17 04/24/19 04:00 BP 134/83 04/24/19 07:00 Pulse Ox 98 04/24/19 07:00 - Labs Lab Results: Laboratory Results - last 24 hr 04/23/19 04/23/19 04/23/19 12:28 18:06 23:57 WBC RBC Hgb Hct MCV MCH MCHC RDW Plt Count Lymph % (Auto) [place] % (Auto) Eos % (Auto) Baso % (Auto) Lymph # [place] # Eos # Baso # Seg Neutrophils % Seg Neutrophils # Sodium Potassium Chloride Carbon Dioxide Anion Gap BUN Creatinine Estimated GFR BUN/Creatinine Ratio Glucose POC Glucose 92 124 H 88 Calcium Total Bilirubin AST ALT Alkaline Phosphatase Total Protein Albumin Albumin/Globulin Ratio 04/24/19 04/24/19 04/24/19 04:12 04:12 06:21 WBC 18.0 H RBC 3.46 L Hgb 9.8 L Hct 31.2 L MCV 90 MCH 28 MCHC 31 L RDW 17.5 H Plt Count 363 Lymph % (Auto) 11.1 L [place] % (Auto) 4.5 Eos % (Auto) 1.8 Baso % (Auto) 0.7 Lymph # 2.0 [place] # 0.8 Eos # 0.3 Baso # 0.1 Seg Neutrophils % 81.9 H Seg Neutrophils # 14.7 H Sodium 140 Potassium 3.9 Chloride 99.2 Carbon Dioxide 24 Anion Gap 21 BUN 56 H Creatinine 3.6 H Estimated GFR 18 BUN/Creatinine Ratio 16 Glucose 87 POC Glucose 132 H Calcium 12.6 H* Total Bilirubin 0.50 AST 28 ALT 34 Alkaline Phosphatase 60 Total Protein 7.3 Albumin 3.2 L Albumin/Globulin Ratio 0.8 Medications & Allergies - Medications Allergies/Adverse Reactions: Allergies No Known Allergies Allergy (Unverified 03/16/19 17:17) Home Medications: Home Medications Medication Instructions Recorded Confirmed Last Taken Type Unobtainable 03/18/19 04/20/19 Unknown History Active Medications: Generic Name Dose Route Start Last Admin Trade Name Freq PRN Reason Stop Dose Admin Acetaminophen 650 mg 04/02/19 23:26 04/21/19 20:29 Tylenol PO 650 mg Q4H PRN Administration Pain, Mild (1-3),temp>100.5 Albuterol 2.5 mg 03/29/19 13:08 Proventil IH Q4HRT PRN Shortness Of Breath Amiodarone HCl 200 mg 04/15/19 22:00 04/23/19 21:21 Cordarone PO 200 mg BID PAOLO Administration Lipase/Protease/Amylase 1 each 04/20/19 13:17 Pancrekarly [place] 10,500 Unit FEEDTUBE PRN PRN For Clogged Feeding Tube Bacitracin 1 applic 04/17/19 08:00 Antibiotic Oint TP Q4H PRN upper lip sore/open Calcitonin [place] 600 unit 04/24/19 10:00 Miacalcin 4 unit/kg (600 unit) IM Q12HR PAOLO Dextrose 50 gm 04/17/19 08:00 D50w (25gm) Vial IV Q1H PRN Hypoglycemia Epoetin Jet 20,000 unit 03/31/19 10:15 04/20/19 12:47 Procrit SUB-Q 20,000 unit NEYMAR PRN Administration hemodialysis Hydralazine HCl 20 mg 04/14/19 03:00 04/14/19 03:11 Apresoline IV 20 mg Q4H PRN Administration hypertemsion Hydrophilic Ointment 1 applic 03/16/19 15:50 04/19/19 18:24 Vaseline Lip Therapy TP 1 applic Q2HR PRN Administration Dry Lips Aztreonam 2 gm in 100 mls @ 100 mls/hr 04/17/19 18:00 04/23/19 09:01 Azactam/Ns 2 Gm/100 Ml IV 100 mls/hr Q24HR PAOLO Administration Protocol Linezolid 600 mg in 300 mls @ 300 mls/hr 04/17/19 17:00 04/24/19 05:00 Zyvox 600mg/300ml IV 300 mls/hr Q12H PAOLO Administration Protocol Sodium Chloride 100 mls @ 999 mls/hr 04/20/19 08:41 Nacl 0.9% IV NEYMAR PRN Hypotension Lansoprazole 30 mg 04/11/19 10:00 04/23/19 21:22 Prevacid Solutab FEEDTUBE 30 mg BID PAOLO Administration Metoprolol Tartrate 5 mg 04/16/19 22:24 04/22/19 00:20 Lopressor IV 5 mg Q6H PRN Administration For HR >120 Metoprolol Tartrate 25 mg 04/17/19 20:00 04/23/19 21:21 Lopressor PO 25 mg TID PAOLO Administration Multi-Ingred Cream/Lotion/Oil/Oint 1 applic 03/16/19 15:50 03/19/19 20:10 Artificial Tears Ophth Oint OU 1 applic Q4HR PRN Administration Dry Eye(s) Simple Syrup 15 ml 04/20/19 13:17 Simple Syrup FEEDTUBE PRN PRN Hypoglycemia Simple Syrup 30 ml 04/20/19 13:29 Simple Syrup FEEDTUBE PRN PRN Hypoglycemia Sodium Bicarbonate 325 mg 04/20/19 13:17 Sodium Bicarbonate FEEDTUBE PRN PRN For Clogged Feeding Tube Sodium Hypochlorite 1 applic 04/18/19 11:00 04/23/19 21:22 Dakin's Half Strength TP 1 applicatio BID PAOLO Administration
[2019-04-24] MEDS: METOPROLOL TARTRATE 25 MG TAB PO SCH ×3 (08:35→21:59)
--- NOTE | 2019-04-24 08:47 | Progress Note ---
Assessment and Plan 1. Acute kidney injury: Vasomotor RUBEN in the setting of shock / volume depletion / Rhabdo. Baseline renal function is unknown. CT abdomen was negative for obstructive nephropathy. Patient was started on hemodialysis on 03/18/19 due to worsening metabolic acidosis and hyperkalemia. Hemodialysis: 03/18, 03/19, 03/20, 03/22, 03/23, 03/24, 03/26, 03/28, 03/29, 03/31, 04/02, 04/04, 04/06, 04/09, 04/11, 04/13, 04/18, 04/20. Monitor for [employer] needs. BUN and creatinine level stable for the past few days. Monitor renal function. Renal prognosis is guarded. Avoid nephrotoxic agents. Meds dosage based on GFR. 2. FEN: Hypokalemia, K level is better. Hypernatremia, improved. Metabolic acidosis, improved. Volume overload, improving. Hypercalcemia, monitor. Monitor lytes. 3. Septic shock: Currently off pressors. Recurrent fever. Per ID recommendation the dialysis catheter was removed on 04/20. 4. Rhabdomyolysis: Improved. 5. A.fib with RVR: SR today. On Amiodarone and Metoprolol. Followed by Cards. 6. Respiratory failure: Extubated. 7. Severe anemia: S/p PRBC. Epogen as needed. 8. Elevated transaminases: Improved. 9. Encephalopathy: Improving. Examination: General appearance: well-developed, appears stated age, obese, not in distress HEENT: Atraumatic EYES: Pupils reacting to light Neck: supple Respiratory: faint rales noted Cardiology: regular, S1S2 heard, no murmur Gastrointestinal: obese, BS heard, not tender Integumentary: no rash noted Neurologic: alert, follows command, conversing, oriented Ext: L UE edema is better Hemodialysis access: None Subjective Date of service: 04/24/19 Principal diagnosis: Acute respr failure, Afib, Aspr Pneumonia, anemia - IJ DVt rt side Interval history: Patient was seen and examined at the bedside. Doing ok. Objective - Vital Signs Vital signs: Vital Signs - 12hr 04/23/19 04/23/19 04/23/19 21:01 21:21 22:01 Temperature Pulse Rate 78 79 78 Pulse Rate [ From Monitor] Respiratory Rate Blood Pressure 115/60 132/81 107/49 O2 Sat by Pulse 99 96 Oximetry 04/23/19 04/23/19 04/24/19 22:41 23:00 00:00 Temperature 97.5 F L Pulse Rate 75 74 72 Pulse Rate [ 75 From Monitor] Respiratory 24 Rate Blood Pressure 107/49 130/59 135/78 O2 Sat by Pulse 98 100 99 Oximetry 04/24/19 04/24/19 04/24/19 01:01 02:00 03:01 Temperature Pulse Rate 83 79 78 Pulse Rate [ From Monitor] Respiratory Rate Blood Pressure 145/86 139/81 139/81 O2 Sat by Pulse 100 99 98 Oximetry 04/24/19 04/24/19 04/24/19 04:00 04:01 04:18 Temperature 98.3 F Pulse Rate 74 77 Pulse Rate [ 74 From Monitor] Respiratory 17 Rate Blood Pressure 139/81 O2 Sat by Pulse 98 99 Oximetry 04/24/19 04/24/19 04/24/19 05:01 06:00 07:00 Temperature Pulse Rate 81 80 Pulse Rate [ From Monitor] Respiratory Rate Blood Pressure 139/81 131/110 134/83 O2 Sat by Pulse 99 98 98 Oximetry - Lab 04/24/19 04:12 04/24/19 04:12 Most recent lab results ABG pH 7.388 pH Units (7.350-7.450) 04/06/19 05:20 ABG pCO2 38.5 mm Hg 04/06/19 05:20 ABG pO2 104.0 mm Hg (80.0-90.0) H 04/06/19 05:20 ABG HCO3 22.6 mmol/L (20.0-26.0) 04/06/19 05:20 ABG O2 Saturation 97.8 % (95.0-99.0) 04/06/19 05:20 Calcium 12.6 mg/dL (8.4-10.2) H* 04/24/19 04:12 Phosphorus 5.70 mg/dL (2.5-4.5) H 04/23/19 04:06 Magnesium 1.90 mg/dL (1.7-2.3) 03/31/19 15:07 Urine Creatinine 106.6 mg/dL (0.1-20.0) H 03/17/19 16:05 Urine Sodium 95 mmol/L 03/17/19 16:05 Medications & Allergies - Medications Allergies/Adverse Reactions: Allergies No Known Allergies Allergy (Unverified 03/16/19 17:17) Home Medications: Home Medications Medication Instructions Recorded Confirmed Last Taken Type Unobtainable 03/18/19 04/20/19 Unknown History Active Medications: Generic Name Dose Route Start Last Admin Trade Name Freq PRN Reason Stop Dose Admin Acetaminophen 650 mg 04/02/19 23:26 04/21/19 20:29 Tylenol PO 650 mg Q4H PRN Administration Pain, Mild (1-3),temp>100.5 Albuterol 2.5 mg 03/29/19 13:08 Proventil IH Q4HRT PRN Shortness Of Breath Amiodarone HCl 200 mg 04/15/19 22:00 04/23/19 21:21 Cordarone PO 200 mg BID PAOLO Administration Lipase/Protease/Amylase 1 each 04/20/19 13:17 Pancreaze 10,500 Unit FEEDTUBE PRN PRN For Clogged Feeding Tube Bacitracin 1 applic 04/17/19 08:00 Antibiotic Oint TP Q4H PRN upper lip sore/open Calcitonin [place] 600 unit 04/24/19 10:00 Miacalcin 4 unit/kg (600 unit) IM Q12HR PAOLO Dextrose 50 gm 04/17/19 08:00 D50w (25gm) Vial IV Q1H PRN Hypoglycemia Epoetin Jet 20,000 unit 03/31/19 10:15 04/20/19 12:47 Procrit SUB-Q 20,000 unit NEYMAR PRN Administration hemodialysis Hydralazine HCl 20 mg 04/14/19 03:00 04/14/19 03:11 Apresoline IV 20 mg Q4H PRN Administration hypertemsion Hydrophilic Ointment 1 applic 03/16/19 15:50 04/19/19 18:24 Vaseline Lip Therapy TP 1 applic Q2HR PRN Administration Dry Lips Aztreonam 2 gm in 100 mls @ 100 mls/hr 04/17/19 18:00 04/23/19 09:01 Azactam/Ns 2 Gm/100 Ml IV 100 mls/hr Q24HR PAOLO Administration Protocol Linezolid 600 mg in 300 mls @ 300 mls/hr 04/17/19 17:00 04/24/19 05:00 Zyvox 600mg/300ml IV 300 mls/hr Q12H PAOLO Administration Protocol Sodium Chloride 100 mls @ 999 mls/hr 04/20/19 08:41 Nacl 0.9% IV NEYMAR PRN Hypotension Lansoprazole 30 mg 04/11/19 10:00 04/23/19 21:22 Prevacid Solutab FEEDTUBE 30 mg BID PAOLO Administration Metoprolol Tartrate 5 mg 04/16/19 22:24 04/22/19 00:20 Lopressor IV 5 mg Q6H PRN Administration For HR >120 Metoprolol Tartrate 25 mg 04/17/19 20:00 04/23/19 21:21 Lopressor PO 25 mg TID PAOLO Administration Multi-Ingred Cream/Lotion/Oil/Oint 1 applic 03/16/19 15:50 03/19/19 20:10 Artificial Tears Ophth Oint OU 1 applic Q4HR PRN Administration Dry Eye(s) Simple Syrup 15 ml 04/20/19 13:17 Simple Syrup FEEDTUBE PRN PRN Hypoglycemia Simple Syrup 30 ml 04/20/19 13:29 Simple Syrup FEEDTUBE PRN PRN Hypoglycemia Sodium Bicarbonate 325 mg 04/20/19 13:17 Sodium Bicarbonate FEEDTUBE PRN PRN For Clogged Feeding Tube Sodium Hypochlorite 1 applic 04/18/19 11:00 04/23/19 21:22 Dakin's Half Strength TP 1 applicatio BID PAOLO Administration
[2019-04-24] MEDS ORDERED: CALCITONIN,SALMON,SYNTHETIC 400 UNIT/2 ML INJ MDV IM SCH (10:00)
[2019-04-24] MEDS: AMIODARONE 200 MG TAB PO SCH ×2 (10:09→21:59)
[2019-04-24] MEDS: AZTREONAM/NS 2 GM/100 ML 2 GM/100 ML VIAL IV SCH (10:09)
[2019-04-24] MEDS: SODIUM HYPOCHLORITE, DAKIN'S 1/2 STRENGTH (0.25%) 473 ML TOPICAL SOLN TP SCH ×2 (10:11→22:00)
[2019-04-24] MEDS: LANSOPRAZOLE 30 MG SOLUTAB FEEDTUBE SCH ×2 (10:11→21:59)
[2019-04-24] MEDS ORDERED: SODIUM CHLORIDE 0.9% 500 ML 500 ML IV SCH (12:00)
[2019-04-24] MEDS ORDERED: FUROSEMIDE 20 MG/2 ML INJ IV ONE (12:00)
--- NOTE | 2019-04-24 13:05 | Progress Note ---
Assessment and Plan Cultures: 03/16/2019 sputum: salivary contamination 03/16/2019 Blood culture: no growth 03/17/2019 Urine culture no growth 03/17/2019 throat culture: no growth 03/26/2019 Blood culture: no growth 03/27/2019 Blood culture negative. 04/04/2019 blood culture NGTD 04/05/2019 urine culture: no growth 04/11/2019 blood culture: no growth 04/15/2019 blood culture: no growth Assessment: 43y/o male with possible psych history admitted on 03/16/2019 with: 1) Septic shock: Resolved. Fever after right IJ exchanged overwire on 03/27, fever had improved. Brain MRI showed no acute intracranial abnormality, mild nonspecific chronic white matter changes, fluid throughout the sinuses and mastoid air cells. Venous US + right IJ DVT. Completed empiric Cefepime x 10 days on 04/06/2019. Initial septic shock - Possible Infectious etiology v/s possibility of Neuroleptic Malignant Syndrome given psych history, high fever of 105F and extremely elevated CPK of >100K. Unclear if he was on any psych med. From ID standpoint, we will continue broad coverage for acute bacterial meningitis, tick borne illness, aspiration pneumonia. Blood culture negative UA with mild pyuria. HIV rapid negative. Strep A rapid ag negative. No obvious infectious source identified yet. 2) High fevers with elevated WBC: ?drug fever v/s infected HD cath. Blood cultures have remained negative. CXR with no obvious pneumonia. 3) Probable aspiration pneumonia, fluid overload, acute resp failure: on oxygen. Previously completed abx. 4) Acute encephalopathy: improving, awake, alert, calm. 5) Acute renal failure: renally dosing all abx, now on iHD. 6) Elevated LFTs/shock liver: resolved. 7) Thrombocytopenia: platelet normalized. 8) Rhabdomyolysis: CK normalized. 9) Multiple superficial wounds: do not appear infected. Continue wound care. Recommendations: continue renally adjusted IV aztreonam and linezolid for now given worsening white count. follow daily WBC LANDY, complement levels within normal limits. Continue wound care Katie Palmer MD [facility] M: [phone] O: [phone] F: [phone] Subjective Date of service: 04/24/19 Principal diagnosis: anemia - rt IJ dvt Interval history: Worsening leukocytosis. Remains afebrile. Objective - Exam Narrative Exam: General appearance: alert, awake Eyes: pupils dannie contracted poorly reactive, no jaundice HENT: Atraumatic; oropharynx with ETT/OGT Neck: no JVD Lungs:distant BS CV: RRR Abdomen: Soft, non-tender Extremities: marked dannie leg edema/arm edema Skin:no rash, +scrotal edema Psych: NAD Neuro: Normal strength - Constitutional Vitals: Vital Signs Temp Pulse Resp BP Pulse Ox 98.3 F 86 18 119/67 99 04/24/19 12:00 04/24/19 12:00 04/24/19 12:00 04/24/19 11:00 04/24/19 12:00 Temperature -Last 24 Hours Temperature 98.3 F Temperature 98.5 F Temperature 98.3 F Temperature 97.5 F Temperature 98.3 F Temperature 97.9 F - Labs CBC & Chem 7: 04/24/19 04:12 04/24/19 04:12 Labs: Abnormal lab results 04/23/19 04/24/19 04/24/19 Range/Units 18:06 04:12 04:12 WBC 18.0 H (4.5-11.0) K/mm3 RBC 3.46 L (3.65-5.03) M/mm3 Hgb 9.8 L (11.8-15.2) gm/dl Hct 31.2 L (35.5-45.6) % MCHC 31 L (32-34) % RDW 17.5 H (13.2-15.2) % Lymph % (Auto) 11.1 L (13.4-35.0) % Seg Neutrophils % 81.9 H (40.0-70.0) % Seg Neutrophils # 14.7 H (1.8-7.7) K/mm3 BUN 56 H (9-20) mg/dL Creatinine 3.6 H (0.8-1.5) mg/dL POC Glucose 124 H (70-105) Calcium 12.6 H* (8.4-10.2) mg/dL Albumin 3.2 L (3.9-5) g/dL 04/24/19 04/24/19 Range/Units 06:21 11:47 WBC (4.5-11.0) K/mm3 RBC (3.65-5.03) M/mm3 Hgb (11.8-15.2) gm/dl Hct (35.5-45.6) % MCHC (32-34) % RDW (13.2-15.2) % Lymph % (Auto) (13.4-35.0) % Seg Neutrophils % (40.0-70.0) % Seg Neutrophils # (1.8-7.7) K/mm3 BUN (9-20) mg/dL Creatinine (0.8-1.5) mg/dL POC Glucose 132 H 106 H (70-105) Calcium (8.4-10.2) mg/dL Albumin (3.9-5) g/dL
--- NOTE | 2019-04-24 13:46 | Progress Note ---
Assessment and Plan Patient awake and more oriented. Patient Presently is on room air. O2 saturation is 99%. No acute respiratory distress. Patient afebrile and has leukocytosis. Patient is on zyvox and azactam. Patients heart rate and blood pressure running good. Patients calcium still high. 12.6. Patient received calcitonin. - Patient Problems (1) Acute respiratory failure Current Visit: Yes Status: Acute Qualifiers: Respiratory failure complication: hypoxia Qualified Code(s): J96.01 - Acute respiratory failure with hypoxia Plan to address problem: O2 2L as needed for shortness of breath or desaturation.. BiPAP standby in the room. Albuterol/atrovent aerosol treatments q 6 hours. Continue Prevacid. Recommend DVT prophylaxis. SCDs (2) Altered mental status Current Visit: Yes Status: Acute Qualifiers: Altered mental status type: unspecified Qualified Code(s): R41.82 - Altered mental status, unspecified Plan to address problem: Management as per primary care and neurology. (3) Atrial fibrillation with RVR Current Visit: Yes Status: Acute Plan to address problem: Management as per cardiology. (4) Cardiopulmonary arrest Current Visit: Yes Status: Acute Plan to address problem: Patient resuscitated. Presently resting on room air. (5) Acute renal failure Current Visit: Yes Status: Acute Qualifiers: Acute renal failure type: with acute tubular necrosis Qualified Code(s): N17.0 - Acute kidney failure with tubular necrosis Plan to address problem: Management as per nephrology. (6) Aspiration pneumonia Current Visit: Yes Status: Acute Qualifiers: Aspiration pneumonia type: unspecified Plan to address problem: Patient is on Azactam and zyvox. (7) GI bleed Current Visit: Yes Status: Acute Plan to address problem: Management as per gastroenterology. Subjective Date of service: 04/24/19 Principal diagnosis: anemia - rt IJ dvt Interval history: Patient awake and more oriented. Patient Presently is on room air. O2 saturation is 99%. No acute respiratory distress. Patient afebrile and has leukocytosis. Patient is on zyvox and azactam. Patients heart rate and blood pressure running good. Patients Patients calcium still high. 12.6. Patient received calcitonin. Objective Vital Signs - 12hr 04/24/19 04/24/19 04/24/19 02:00 03:01 04:00 Temperature Pulse Rate 79 78 74 Pulse Rate [ 74 From Monitor] Respiratory 17 Rate Blood Pressure 139/81 139/81 O2 Sat by Pulse 99 98 98 Oximetry 04/24/19 04/24/19 04/24/19 04:01 04:18 05:01 Temperature 98.3 F Pulse Rate 77 81 Pulse Rate [ From Monitor] Respiratory Rate Blood Pressure 139/81 139/81 O2 Sat by Pulse 99 99 Oximetry 04/24/19 04/24/19 04/24/19 06:00 07:00 08:00 Temperature 98.5 F Pulse Rate 80 85 Pulse Rate [ 77 From Monitor] Respiratory 19 Rate Blood Pressure 131/110 134/83 145/73 O2 Sat by Pulse 98 98 99 Oximetry 04/24/19 04/24/19 04/24/19 08:35 08:58 09:01 Temperature Pulse Rate 78 79 Pulse Rate [ From Monitor] Respiratory 18 Rate Blood Pressure 145/73 131/56 O2 Sat by Pulse 98 98 Oximetry 04/24/19 04/24/19 04/24/19 10:00 11:00 12:00 Temperature 98.3 F Pulse Rate 80 81 86 Pulse Rate [ 86 From Monitor] Respiratory 23 18 Rate Blood Pressure 135/75 119/67 128/77 O2 Sat by Pulse 98 98 98 Oximetry 04/24/19 13:01 Temperature Pulse Rate 89 Pulse Rate [ From Monitor] Respiratory Rate Blood Pressure 130/74 O2 Sat by Pulse 97 Oximetry Constitutional: no acute distress, alert Eyes: icteric ENT: oropharynx moist Neck: supple, no lymphadenopathy, no JVD, other (large neck circumference) Effort: normal Ascultation: Bilateral: diminished breath sounds, rales, rhonchi (scant) Percussion: Bilateral: not dull Cardiovascular: regular rate and rhythm, other ( S1,S2) Gastrointestinal: normoactive bowel sounds, soft, non-tender Integumentary: normal Extremities: no cyanosis, pink and warm, pulses normal, no ischemia or petechiae, edema (right upper extremity) Neurologic: normal mental status, non-focal exam (grossly), pupils equal and round, CN II-XII normal, other (very weak, intermittent confusion, left extremity weaker than the right) Psychiatric: mood appropriate, affect normal CBC and BMP: 04/24/19 04:12 04/24/19 04:12 ABG, PT/INR, D-dimer: ABG POC ABG pH 7.401 (7.35-7.45) 04/07/19 12:57 ABG pH 7.388 pH Units (7.350-7.450) 04/06/19 05:20 POC ABG pCO2 41.5 (35-45) 04/07/19 12:57 ABG pCO2 38.5 mm Hg 04/06/19 05:20 POC ABG pO2 107 (80-105) H 04/07/19 12:57 ABG pO2 104.0 mm Hg (80.0-90.0) H 04/06/19 05:20 POC ABG HCO3 25.7 (22-26 mml/L) 04/07/19 12:57 POC ABG Total CO2 27 (23-27mmol/L) 04/07/19 12:57 POC ABG O2 Sat 98 04/07/19 12:57 ABG O2 Saturation 97.8 % (95.0-99.0) 04/06/19 05:20 PT/INR, D-dimer PT 15.3 Sec. (12.2-14.9) H 03/29/19 11:48 INR 1.24 (0.87-1.13) H 03/29/19 11:48 D-Dimer 4845.98 ng/mlDDU (0-234) H 03/28/19 12:00 Abnormal lab findings: Abnormal Labs 03/16/19 03/16/19 03/16/19 15:32 16:03 16:05 WBC 27.0 H RBC 5.55 H Hgb 15.7 H Hct 47.1 H MCV MCHC RDW Plt Count 75 L Lymph % (Auto) [place] % (Auto) Lymph # [place] # Seg Neutrophils % Seg Neuts % (Manual) 85.0 H Lymphocytes % (Manual) 2.0 L Monocytes % (Manual) Nucleated RBC % Seg Neutrophils # Seg Neutrophils # Man 23.0 H Lymphocytes # (Manual) 0.5 L Monocytes # (Manual) PT INR D-Dimer Heparin Anti-Xa Level POC ABG pH ABG pH POC ABG pCO2 POC ABG pO2 ABG pO2 ABG HCO3 ABG O2 Saturation ABG Base Excess ABG Hemoglobin Oxyhemoglobin Sodium 127 L Potassium Chloride 87.8 L Carbon Dioxide 17 L BUN 49 H Creatinine 5.8 H Glucose 150 H POC Glucose 118 H Lactic Acid Calcium 6.6 L Ionized Calcium Phosphorus Magnesium 1.10 L Iron TIBC Ferritin Total Bilirubin Direct Bilirubin AST ALT Alkaline Phosphatase Total Creatine Kinase 75681 H CK-MB (CK-2) Troponin T C-Reactive Protein Total Protein Albumin Triglycerides LDL Cholesterol Direct HDL Cholesterol Free T4 PTH Intact Urine WBC (Auto) Urine Creatinine Salicylates Acetaminophen Crossmatch 03/16/19 03/16/19 03/16/19 16:59 17:05 17:05 WBC RBC Hgb Hct MCV MCHC RDW Plt Count Lymph % (Auto) [place] % (Auto) Lymph # [place] # Seg Neutrophils % Seg Neuts % (Manual) Lymphocytes % (Manual) Monocytes % (Manual) Nucleated RBC % Seg Neutrophils # Seg Neutrophils # Man Lymphocytes # (Manual) Monocytes # (Manual) PT INR D-Dimer Heparin Anti-Xa Level POC ABG pH 7.297 L ABG pH POC ABG pCO2 33.0 L POC ABG pO2 ABG pO2 ABG HCO3 ABG O2 Saturation ABG Base Excess ABG Hemoglobin Oxyhemoglobin Sodium Potassium Chloride Carbon Dioxide BUN Creatinine Glucose POC Glucose Lactic Acid Calcium Ionized Calcium Phosphorus Magnesium Iron TIBC Ferritin Total Bilirubin Direct Bilirubin AST ALT Alkaline Phosphatase Total Creatine Kinase 96213 H CK-MB (CK-2) 83.1 H Troponin T C-Reactive Protein Total Protein Albumin Triglycerides LDL Cholesterol Direct HDL Cholesterol Free T4 0.72 L PTH Intact Urine WBC (Auto) Urine Creatinine Salicylates Acetaminophen Crossmatch 03/16/19 03/16/19 03/16/19 17:05 17:05 17:05 WBC RBC Hgb Hct MCV MCHC RDW Plt Count Lymph % (Auto) [place] % (Auto) Lymph # [place] # Seg Neutrophils % Seg Neuts % (Manual) Lymphocytes % (Manual) Monocytes % (Manual) Nucleated RBC % Seg Neutrophils # Seg Neutrophils # Man Lymphocytes # (Manual) Monocytes # (Manual) PT INR D-Dimer Heparin Anti-Xa Level POC ABG pH ABG pH POC ABG pCO2 POC ABG pO2 ABG pO2 ABG HCO3 ABG O2 Saturation ABG Base Excess ABG Hemoglobin Oxyhemoglobin Sodium Potassium Chloride Carbon Dioxide BUN Creatinine Glucose POC Glucose Lactic Acid 5.10 H* Calcium Ionized Calcium Phosphorus Magnesium Iron TIBC Ferritin Total Bilirubin Direct Bilirubin AST ALT Alkaline Phosphatase Total Creatine Kinase CK-MB (CK-2) Troponin T C-Reactive Protein Total Protein Albumin Triglycerides LDL Cholesterol Direct HDL Cholesterol Free T4 PTH Intact Urine WBC (Auto) Urine Creatinine Salicylates < 0.3 L Acetaminophen < 5.0 L Crossmatch 03/16/19 03/16/19 03/16/19 17:05 17:05 20:35 WBC RBC Hgb Hct MCV MCHC RDW Plt Count Lymph % (Auto) [place] % (Auto) Lymph # [place] # Seg Neutrophils % Seg Neuts % (Manual) Lymphocytes % (Manual) Monocytes % (Manual) Nucleated RBC % Seg Neutrophils # Seg Neutrophils # Man Lymphocytes # (Manual) Monocytes # (Manual) PT 15.9 H INR 1.30 H D-Dimer Heparin Anti-Xa Level POC ABG pH ABG pH POC ABG pCO2 POC ABG pO2 ABG pO2 ABG HCO3 ABG O2 Saturation ABG Base Excess ABG Hemoglobin Oxyhemoglobin Sodium Potassium Chloride Carbon Dioxide BUN Creatinine Glucose POC Glucose Lactic Acid 3.30 H* Calcium Ionized Calcium Phosphorus Magnesium Iron TIBC Ferritin Total Bilirubin 6.20 H Direct Bilirubin 5.9 H AST 800 H ALT 120 H Alkaline Phosphatase Total Creatine Kinase CK-MB (CK-2) Troponin T C-Reactive Protein Total Protein 4.4 L Albumin 2.4 L Triglycerides LDL Cholesterol Direct HDL Cholesterol Free T4 PTH Intact Urine WBC (Auto) Urine Creatinine Salicylates Acetaminophen Crossmatch 03/16/19 03/16/19 03/16/19 21:45 22:32 Unknown WBC RBC Hgb Hct MCV MCHC RDW Plt Count Lymph % (Auto) [place] % (Auto) Lymph # [place] # Seg Neutrophils % Seg Neuts % (Manual) Lymphocytes % (Manual) Monocytes % (Manual) Nucleated RBC % Seg Neutrophils # Seg Neutrophils # Man Lymphocytes # (Manual) Monocytes # (Manual) PT INR D-Dimer Heparin Anti-Xa Level POC ABG pH ABG pH POC ABG pCO2 POC ABG pO2 ABG pO2 ABG HCO3 ABG O2 Saturation ABG Base Excess ABG Hemoglobin Oxyhemoglobin Sodium Potassium Chloride Carbon Dioxide BUN Creatinine Glucose POC Glucose Lactic Acid 3.30 H* 3.00 H* Calcium Ionized Calcium Phosphorus Magnesium Iron TIBC Ferritin Total Bilirubin Direct Bilirubin AST ALT Alkaline Phosphatase Total Creatine Kinase CK-MB (CK-2) Troponin T 0.047 H D C-Reactive Protein Total Protein Albumin Triglycerides 395 H LDL Cholesterol Direct 10 L HDL Cholesterol 7 L Free T4 PTH Intact Urine WBC (Auto) Urine Creatinine Salicylates Acetaminophen Crossmatch 03/17/19 03/17/1919 03:45 03:45 03:45 WBC RBC Hgb Hct MCV MCHC RDW Plt Count Lymph % (Auto) [place] % (Auto) Lymph # [place] # Seg Neutrophils % Seg Neuts % (Manual) Lymphocytes % (Manual) Monocytes % (Manual) Nucleated RBC % Seg Neutrophils # Seg Neutrophils # Man Lymphocytes # (Manual) Monocytes # (Manual) PT INR D-Dimer Heparin Anti-Xa Level POC ABG pH ABG pH POC ABG pCO2 POC ABG pO2 ABG pO2 ABG HCO3 ABG O2 Saturation ABG Base Excess ABG Hemoglobin Oxyhemoglobin Sodium 131 L Potassium Chloride 88.9 L Carbon Dioxide BUN 53 H Creatinine 7.1 H Glucose POC Glucose Lactic Acid 4.10 H* Calcium 5.4 L* D Ionized Calcium Phosphorus 7.30 H Magnesium 1.60 L Iron TIBC Ferritin Total Bilirubin 5.90 H Direct Bilirubin AST 801 H ALT 109 H Alkaline Phosphatase Total Creatine Kinase 17147 H 15855 H CK-MB (CK-2) 41.5 H Troponin T 0.054 H C-Reactive Protein Total Protein 4.5 L Albumin 2.0 L Triglycerides LDL Cholesterol Direct HDL Cholesterol Free T4 PTH Intact Urine WBC (Auto) Urine Creatinine Salicylates Acetaminophen Crossmatch 03/17/19 03/17/19 03/17/19 05:47 07:16 07:16 WBC RBC Hgb Hct MCV MCHC RDW Plt Count Lymph % (Auto) [place] % (Auto) Lymph # [place] # Seg Neutrophils % Seg Neuts % (Manual) Lymphocytes % (Manual) Monocytes % (Manual) Nucleated RBC % Seg Neutrophils # Seg Neutrophils # Man Lymphocytes # (Manual) Monocytes # (Manual) PT INR D-Dimer Heparin Anti-Xa Level POC ABG pH 7.193 L ABG pH POC ABG pCO2 45.2 H POC ABG pO2 65 L ABG pO2 ABG HCO3 ABG O2 Saturation ABG Base Excess ABG Hemoglobin Oxyhemoglobin Sodium Potassium Chloride Carbon Dioxide BUN Creatinine Glucose POC Glucose Lactic Acid 5.50 H* Calcium Ionized Calcium Phosphorus Magnesium Iron TIBC Ferritin Total Bilirubin Direct Bilirubin AST ALT Alkaline Phosphatase Total Creatine Kinase 38685 H CK-MB (CK-2) 54.3 H Troponin T 0.058 H C-Reactive Protein Total Protein Albumin Triglycerides LDL Cholesterol Direct HDL Cholesterol Free T4 PTH Intact Urine WBC (Auto) Urine Creatinine Salicylates Acetaminophen Crossmatch 03/17/19 03/17/19 03/17/19 11:52 12:51 13:01 WBC RBC Hgb Hct MCV MCHC RDW Plt Count Lymph % (Auto) [place] % (Auto) Lymph # [place] # Seg Neutrophils % Seg Neuts % (Manual) Lymphocytes % (Manual) Monocytes % (Manual) Nucleated RBC % Seg Neutrophils # Seg Neutrophils # Man Lymphocytes # (Manual) Monocytes # (Manual) PT INR D-Dimer Heparin Anti-Xa Level POC ABG pH 7.154 L ABG pH POC ABG pCO2 34.3 L POC ABG pO2 73 L ABG pO2 ABG HCO3 ABG O2 Saturation ABG Base Excess ABG Hemoglobin Oxyhemoglobin Sodium Potassium Chloride Carbon Dioxide BUN Creatinine Glucose POC Glucose 60 L Lactic Acid 8.20 H* Calcium Ionized Calcium Phosphorus Magnesium Iron TIBC Ferritin Total Bilirubin Direct Bilirubin AST ALT Alkaline Phosphatase Total Creatine Kinase CK-MB (CK-2) Troponin T C-Reactive Protein Total Protein Albumin Triglycerides LDL Cholesterol Direct HDL Cholesterol Free T4 PTH Intact Urine WBC (Auto) Urine Creatinine Salicylates Acetaminophen Crossmatch 03/17/19 03/17/19 03/17/19 14:37 14:37 14:37 WBC 29.3 H RBC Hgb Hct MCV MCHC RDW 15.8 H Plt Count 45 L Lymph % (Auto) [place] % (Auto) Lymph # [place] # Seg Neutrophils % Seg Neuts % (Manual) 81.0 H Lymphocytes % (Manual) 1.0 L Monocytes % (Manual) 15.0 H Nucleated RBC % Seg Neutrophils # Seg Neutrophils # Man 23.7 H Lymphocytes # (Manual) 0.3 L Monocytes # (Manual) 4.4 H PT INR D-Dimer Heparin Anti-Xa Level POC ABG pH ABG pH POC ABG pCO2 POC ABG pO2 ABG pO2 ABG HCO3 ABG O2 Saturation ABG Base Excess ABG Hemoglobin Oxyhemoglobin Sodium Potassium Chloride Carbon Dioxide BUN Creatinine Glucose POC Glucose Lactic Acid 4.90 H* Calcium Ionized Calcium Phosphorus Magnesium Iron TIBC Ferritin Total Bilirubin Direct Bilirubin AST ALT Alkaline Phosphatase Total Creatine Kinase CK-MB (CK-2) Troponin T C-Reactive Protein 24.90 H Total Protein Albumin Triglycerides LDL Cholesterol Direct HDL Cholesterol Free T4 PTH Intact Urine WBC (Auto) Urine Creatinine Salicylates Acetaminophen Crossmatch 03/17/19 03/17/19 03/17/19 16:05 16:05 17:02 WBC RBC Hgb Hct MCV MCHC RDW Plt Count Lymph % (Auto) [place] % (Auto) Lymph # [place] # Seg Neutrophils % Seg Neuts % (Manual) Lymphocytes % (Manual) Monocytes % (Manual) Nucleated RBC % Seg Neutrophils # Seg Neutrophils # Man Lymphocytes # (Manual) Monocytes # (Manual) PT INR D-Dimer Heparin Anti-Xa Level POC ABG pH 7.183 L ABG pH POC ABG pCO2 POC ABG pO2 65 L ABG pO2 ABG HCO3 ABG O2 Saturation ABG Base Excess ABG Hemoglobin Oxyhemoglobin Sodium Potassium Chloride Carbon Dioxide BUN Creatinine Glucose POC Glucose Lactic Acid Calcium Ionized Calcium Phosphorus Magnesium Iron TIBC Ferritin Total Bilirubin Direct Bilirubin AST ALT Alkaline Phosphatase Total Creatine Kinase CK-MB (CK-2) Troponin T C-Reactive Protein Total Protein Albumin Triglycerides LDL Cholesterol Direct HDL Cholesterol Free T4 PTH Intact Urine WBC (Auto) 30.0 H Urine Creatinine 106.6 H Salicylates Acetaminophen Crossmatch 03/18/19 03/18/19 03/18/19 05:12 05:16 05:53 WBC RBC Hgb Hct MCV MCHC RDW Plt Count Lymph % (Auto) [place] % (Auto) Lymph # [place] # Seg Neutrophils % Seg Neuts % (Manual) Lymphocytes % (Manual) Monocytes % (Manual) Nucleated RBC % Seg Neutrophils # Seg Neutrophils # Man Lymphocytes # (Manual) Monocytes # (Manual) PT INR D-Dimer Heparin Anti-Xa Level POC ABG pH 7.257 L ABG pH POC ABG pCO2 31.6 L POC ABG pO2 69 L ABG pO2 ABG HCO3 ABG O2 Saturation ABG Base Excess ABG Hemoglobin Oxyhemoglobin Sodium Potassium Chloride Carbon Dioxide BUN Creatinine Glucose POC Glucose 141 H Lactic Acid 5.00 H* Calcium Ionized Calcium Phosphorus Magnesium Iron TIBC Ferritin Total Bilirubin Direct Bilirubin AST ALT Alkaline Phosphatase Total Creatine Kinase CK-MB (CK-2) Troponin T C-Reactive Protein Total Protein Albumin Triglycerides LDL Cholesterol Direct HDL Cholesterol Free T4 PTH Intact Urine WBC (Auto) Urine Creatinine Salicylates Acetaminophen Crossmatch 03/18/19 03/18/19 03/18/19 06:57 08:40 08:40 WBC 31.7 H RBC Hgb Hct MCV MCHC RDW 15.5 H Plt Count 35 L Lymph % (Auto) [place] % (Auto) Lymph # [place] # Seg Neutrophils % Seg Neuts % (Manual) Lymphocytes % (Manual) Monocytes % (Manual) Nucleated RBC % Seg Neutrophils # Seg Neutrophils # Man Lymphocytes # (Manual) Monocytes # (Manual) PT INR D-Dimer Heparin Anti-Xa Level POC ABG pH ABG pH POC ABG pCO2 POC ABG pO2 ABG pO2 ABG HCO3 ABG O2 Saturation ABG Base Excess ABG Hemoglobin Oxyhemoglobin Sodium 132 L Potassium 5.5 H D Chloride 88.5 L Carbon Dioxide 18 L BUN 71 H Creatinine 8.1 H Glucose 205 H POC Glucose Lactic Acid 5.00 H* Calcium 4.1 L* D Ionized Calcium Phosphorus Magnesium 2.40 H Iron TIBC Ferritin Total Bilirubin 7.50 H Direct Bilirubin AST 1088 H ALT 159 H Alkaline Phosphatase 190 H Total Creatine Kinase 623647 H CK-MB (CK-2) Troponin T C-Reactive Protein Total Protein 4.7 L Albumin 1.8 L Triglycerides LDL Cholesterol Direct HDL Cholesterol Free T4 PTH Intact Urine WBC (Auto) Urine Creatinine Salicylates Acetaminophen Crossmatch 03/18/19 03/18/19 03/18/19 12:33 12:50 13:19 WBC RBC Hgb Hct MCV MCHC RDW Plt Count Lymph % (Auto) [place] % (Auto) Lymph # [place] # Seg Neutrophils % Seg Neuts % (Manual) Lymphocytes % (Manual) Monocytes % (Manual) Nucleated RBC % Seg Neutrophils # Seg Neutrophils # Man Lymphocytes # (Manual) Monocytes # (Manual) PT INR D-Dimer Heparin Anti-Xa Level POC ABG pH 7.282 L ABG pH POC ABG pCO2 POC ABG pO2 67 L ABG pO2 ABG HCO3 ABG O2 Saturation ABG Base Excess ABG Hemoglobin Oxyhemoglobin Sodium Potassium Chloride Carbon Dioxide BUN Creatinine Glucose POC Glucose 129 H Lactic Acid 3.30 H* Calcium Ionized Calcium Phosphorus Magnesium Iron TIBC Ferritin Total Bilirubin Direct Bilirubin AST ALT Alkaline Phosphatase Total Creatine Kinase CK-MB (CK-2) Troponin T C-Reactive Protein Total Protein Albumin Triglycerides LDL Cholesterol Direct HDL Cholesterol Free T4 PTH Intact Urine WBC (Auto) Urine Creatinine Salicylates Acetaminophen Crossmatch 03/18/19 03/18/19 03/18/19 13:19 16:50 18:11 WBC RBC Hgb Hct MCV MCHC RDW Plt Count Lymph % (Auto) [place] % (Auto) Lymph # [place] # Seg Neutrophils % Seg Neuts % (Manual) Lymphocytes % (Manual) Monocytes % (Manual) Nucleated RBC % Seg Neutrophils # Seg Neutrophils # Man Lymphocytes # (Manual) Monocytes # (Manual) PT INR D-Dimer Heparin Anti-Xa Level POC ABG pH ABG pH POC ABG pCO2 POC ABG pO2 59 L ABG pO2 ABG HCO3 ABG O2 Saturation ABG Base Excess ABG Hemoglobin Oxyhemoglobin Sodium Potassium Chloride Carbon Dioxide BUN Creatinine Glucose POC Glucose 151 H Lactic Acid Calcium 4.2 L* Ionized Calcium Phosphorus Magnesium Iron TIBC Ferritin Total Bilirubin Direct Bilirubin AST ALT Alkaline Phosphatase Total Creatine Kinase 354233 H CK-MB (CK-2) Troponin T C-Reactive Protein Total Protein Albumin Triglycerides LDL Cholesterol Direct HDL Cholesterol Free T4 PTH Intact Urine WBC (Auto) Urine Creatinine Salicylates Acetaminophen Crossmatch 03/18/19 03/18/19 03/19/19 18:20 23:39 01:42 WBC RBC Hgb Hct MCV MCHC RDW Plt Count Lymph % (Auto) [place] % (Auto) Lymph # [place] # Seg Neutrophils % Seg Neuts % (Manual) Lymphocytes % (Manual) Monocytes % (Manual) Nucleated RBC % Seg Neutrophils # Seg Neutrophils # Man Lymphocytes # (Manual) Monocytes # (Manual) PT INR D-Dimer Heparin Anti-Xa Level POC ABG pH 7.345 L ABG pH 7.285 L POC ABG pCO2 POC ABG pO2 59 L ABG pO2 44.0 L ABG HCO3 ABG O2 Saturation 70.9 L ABG Base Excess -5.7 L ABG Hemoglobin 11.9 L Oxyhemoglobin 69.6 L Sodium Potassium Chloride Carbon Dioxide BUN Creatinine Glucose POC Glucose 152 H Lactic Acid Calcium Ionized Calcium Phosphorus Magnesium Iron TIBC Ferritin Total Bilirubin Direct Bilirubin AST ALT Alkaline Phosphatase Total Creatine Kinase CK-MB (CK-2) Troponin T C-Reactive Protein Total Protein Albumin Triglycerides LDL Cholesterol Direct HDL Cholesterol Free T4 PTH Intact Urine WBC (Auto) Urine Creatinine Salicylates Acetaminophen Crossmatch 03/19/19 03/19/19 03/19/19 04:00 04:00 05:35 WBC 36.5 H RBC Hgb Hct MCV MCHC RDW 15.8 H Plt Count 35 L Lymph % (Auto) [place] % (Auto) Lymph # [place] # Seg Neutrophils % Seg Neuts % (Manual) Lymphocytes % (Manual) Monocytes % (Manual) Nucleated RBC % Seg Neutrophils # Seg Neutrophils # Man Lymphocytes # (Manual) Monocytes # (Manual) PT INR D-Dimer Heparin Anti-Xa Level POC ABG pH ABG pH 7.265 L POC ABG pCO2 POC ABG pO2 ABG pO2 35.4 L* ABG HCO3 ABG O2 Saturation 54.4 L ABG Base Excess -6.7 L ABG Hemoglobin 12.9 L Oxyhemoglobin 53.4 L Sodium 132 L Potassium 5.7 H Chloride 89.8 L Carbon Dioxide 19 L BUN 62 H Creatinine 6.4 H Glucose 151 H POC Glucose Lactic Acid Calcium 5.2 L* D Ionized Calcium Phosphorus Magnesium Iron TIBC Ferritin Total Bilirubin 7.80 H Direct Bilirubin AST 682 H ALT 130 H Alkaline Phosphatase 167 H Total Creatine Kinase CK-MB (CK-2) Troponin T C-Reactive Protein Total Protein 4.8 L Albumin 2.3 L Triglycerides LDL Cholesterol Direct HDL Cholesterol Free T4 PTH Intact Urine WBC (Auto) Urine Creatinine Salicylates Acetaminophen Crossmatch 03/19/19 03/19/19 03/19/19 05:49 09:16 09:50 WBC RBC Hgb Hct MCV MCHC RDW Plt Count Lymph % (Auto) [place] % (Auto) Lymph # [place] # Seg Neutrophils % Seg Neuts % (Manual) Lymphocytes % (Manual) Monocytes % (Manual) Nucleated RBC % Seg Neutrophils # Seg Neutrophils # Man Lymphocytes # (Manual) Monocytes # (Manual) PT INR D-Dimer Heparin Anti-Xa Level POC ABG pH 7.222 L ABG pH POC ABG pCO2 56.6 H POC ABG pO2 ABG pO2 ABG HCO3 ABG O2 Saturation ABG Base Excess ABG Hemoglobin Oxyhemoglobin Sodium Potassium Chloride Carbon Dioxide BUN Creatinine Glucose POC Glucose 154 H Lactic Acid 2.70 H* Calcium Ionized Calcium Phosphorus Magnesium Iron TIBC Ferritin Total Bilirubin Direct Bilirubin AST ALT Alkaline Phosphatase Total Creatine Kinase CK-MB (CK-2) Troponin T C-Reactive Protein Total Protein Albumin Triglycerides LDL Cholesterol Direct HDL Cholesterol Free T4 PTH Intact Urine WBC (Auto) Urine Creatinine Salicylates Acetaminophen Crossmatch 03/19/19 03/19/19 03/19/19 09:50 11:28 17:58 WBC RBC Hgb Hct MCV MCHC RDW Plt Count Lymph % (Auto) [place] % (Auto) Lymph # [place] # Seg Neutrophils % Seg Neuts % (Manual) Lymphocytes % (Manual) Monocytes % (Manual) Nucleated RBC % Seg Neutrophils # Seg Neutrophils # Man Lymphocytes # (Manual) Monocytes # (Manual) PT INR D-Dimer Heparin Anti-Xa Level POC ABG pH 7.250 L ABG pH POC ABG pCO2 52.6 H POC ABG pO2 ABG pO2 ABG HCO3 ABG O2 Saturation ABG Base Excess ABG Hemoglobin Oxyhemoglobin Sodium Potassium Chloride Carbon Dioxide BUN Creatinine Glucose POC Glucose 160 H Lactic Acid Calcium Ionized Calcium Phosphorus Magnesium Iron TIBC Ferritin Total Bilirubin Direct Bilirubin AST ALT Alkaline Phosphatase Total Creatine Kinase 25489 H CK-MB (CK-2) Troponin T C-Reactive Protein Total Protein Albumin Triglycerides LDL Cholesterol Direct HDL Cholesterol Free T4 PTH Intact Urine WBC (Auto) Urine Creatinine Salicylates Acetaminophen Crossmatch 03/19/19 03/19/19 03/20/19 19:48 21:03 02:16 WBC RBC Hgb Hct MCV MCHC RDW Plt Count Lymph % (Auto) [place] % (Auto) Lymph # [place] # Seg Neutrophils % Seg Neuts % (Manual) Lymphocytes % (Manual) Monocytes % (Manual) Nucleated RBC % Seg Neutrophils # Seg Neutrophils # Man Lymphocytes # (Manual) Monocytes # (Manual) PT INR D-Dimer Heparin Anti-Xa Level POC ABG pH 7.279 L ABG pH POC ABG pCO2 50.3 H POC ABG pO2 129 H ABG pO2 ABG HCO3 ABG O2 Saturation ABG Base Excess ABG Hemoglobin Oxyhemoglobin Sodium Potassium Chloride Carbon Dioxide BUN Creatinine Glucose POC Glucose 119 H 119 H Lactic Acid Calcium Ionized Calcium Phosphorus Magnesium Iron TIBC Ferritin Total Bilirubin Direct Bilirubin AST ALT Alkaline Phosphatase Total Creatine Kinase CK-MB (CK-2) Troponin T C-Reactive Protein Total Protein Albumin Triglycerides LDL Cholesterol Direct HDL Cholesterol Free T4 PTH Intact Urine WBC (Auto) Urine Creatinine Salicylates Acetaminophen Crossmatch 03/20/19 03/20/19 03/20/19 04:23 05:05 09:30 WBC 36.3 H RBC Hgb Hct MCV MCHC RDW 15.5 H Plt Count 29 L Lymph % (Auto) [place] % (Auto) Lymph # [place] # Seg Neutrophils % Seg Neuts % (Manual) Lymphocytes % (Manual) Monocytes % (Manual) Nucleated RBC % Seg Neutrophils # Seg Neutrophils # Man Lymphocytes # (Manual) Monocytes # (Manual) PT INR D-Dimer Heparin Anti-Xa Level POC ABG pH ABG pH POC ABG pCO2 POC ABG pO2 280 H ABG pO2 ABG HCO3 ABG O2 Saturation ABG Base Excess ABG Hemoglobin Oxyhemoglobin Sodium Potassium Chloride Carbon Dioxide BUN Creatinine Glucose POC Glucose 115 H Lactic Acid Calcium Ionized Calcium Phosphorus Magnesium Iron TIBC Ferritin Total Bilirubin Direct Bilirubin AST ALT Alkaline Phosphatase Total Creatine Kinase CK-MB (CK-2) Troponin T C-Reactive Protein Total Protein Albumin Triglycerides LDL Cholesterol Direct HDL Cholesterol Free T4 PTH Intact Urine WBC (Auto) Urine Creatinine Salicylates Acetaminophen Crossmatch 03/20/19 03/20/19 03/20/19 09:30 09:30 11:34 WBC RBC Hgb Hct MCV MCHC RDW Plt Count Lymph % (Auto) [place] % (Auto) Lymph # [place] # Seg Neutrophils % Seg Neuts % (Manual) Lymphocytes % (Manual) Monocytes % (Manual) Nucleated RBC % Seg Neutrophils # Seg Neutrophils # Man Lymphocytes # (Manual) Monocytes # (Manual) PT INR D-Dimer Heparin Anti-Xa Level POC ABG pH ABG pH POC ABG pCO2 POC ABG pO2 ABG pO2 ABG HCO3 ABG O2 Saturation ABG Base Excess ABG Hemoglobin Oxyhemoglobin Sodium 131 L Potassium Chloride 92.3 L Carbon Dioxide 20 L BUN 68 H Creatinine 6.1 H Glucose 164 H POC Glucose 141 H Lactic Acid Calcium 5.3 L* Ionized Calcium Phosphorus Magnesium Iron TIBC Ferritin Total Bilirubin 9.50 H Direct Bilirubin AST 381 H ALT 116 H Alkaline Phosphatase 255 H Total Creatine Kinase 96242 H CK-MB (CK-2) Troponin T C-Reactive Protein Total Protein 5.1 L Albumin 2.3 L Triglycerides LDL Cholesterol Direct HDL Cholesterol Free T4 PTH Intact Urine WBC (Auto) Urine Creatinine Salicylates Acetaminophen Crossmatch 03/20/19 03/20/19 03/20/19 14:41 14:45 18:50 WBC RBC Hgb Hct MCV MCHC RDW Plt Count Lymph % (Auto) [place] % (Auto) Lymph # [place] # Seg Neutrophils % Seg Neuts % (Manual) Lymphocytes % (Manual) Monocytes % (Manual) Nucleated RBC % Seg Neutrophils # Seg Neutrophils # Man Lymphocytes # (Manual) Monocytes # (Manual) PT INR D-Dimer Heparin Anti-Xa Level POC ABG pH ABG pH POC ABG pCO2 POC ABG pO2 ABG pO2 ABG HCO3 ABG O2 Saturation ABG Base Excess ABG Hemoglobin Oxyhemoglobin Sodium Potassium Chloride Carbon Dioxide BUN Creatinine Glucose POC Glucose 117 H Lactic Acid 2.90 H* Calcium Ionized Calcium Phosphorus Magnesium Iron TIBC Ferritin Total Bilirubin Direct Bilirubin AST ALT Alkaline Phosphatase Total Creatine Kinase CK-MB (CK-2) Troponin T C-Reactive Protein 13.30 H Total Protein Albumin Triglycerides LDL Cholesterol Direct HDL Cholesterol Free T4 PTH Intact Urine WBC (Auto) Urine Creatinine Salicylates Acetaminophen Crossmatch 03/20/19 03/21/19 03/21/19 21:55 04:26 04:26 WBC 37.8 H RBC Hgb Hct MCV MCHC RDW 15.4 H Plt Count 36 L Lymph % (Auto) [place] % (Auto) Lymph # [place] # Seg Neutrophils % Seg Neuts % (Manual) 93.0 H Lymphocytes % (Manual) 3.0 L Monocytes % (Manual) Nucleated RBC % 1.0 H Seg Neutrophils # 34.6 H Seg Neutrophils # Man 35.2 H Lymphocytes # (Manual) 1.1 L Monocytes # (Manual) PT INR D-Dimer Heparin Anti-Xa Level POC ABG pH ABG pH POC ABG pCO2 POC ABG pO2 ABG pO2 ABG HCO3 ABG O2 Saturation ABG Base Excess ABG Hemoglobin Oxyhemoglobin Sodium 131 L Potassium Chloride 90.7 L Carbon Dioxide 21 L BUN 69 H Creatinine 5.7 H Glucose 170 H POC Glucose 128 H Lactic Acid Calcium 6.1 L D Ionized Calcium Phosphorus Magnesium Iron TIBC Ferritin Total Bilirubin 9.50 H Direct Bilirubin AST 308 H ALT 124 H Alkaline Phosphatase 327 H Total Creatine Kinase 77534 H CK-MB (CK-2) Troponin T C-Reactive Protein Total Protein 5.7 L Albumin 2.6 L Triglycerides LDL Cholesterol Direct HDL Cholesterol Free T4 PTH Intact Urine WBC (Auto) Urine Creatinine Salicylates Acetaminophen Crossmatch 03/21/19 03/21/19 03/21/19 05:17 05:39 08:29 WBC RBC Hgb Hct MCV MCHC RDW Plt Count Lymph % (Auto) [place] % (Auto) Lymph # [place] # Seg Neutrophils % Seg Neuts % (Manual) Lymphocytes % (Manual) Monocytes % (Manual) Nucleated RBC % Seg Neutrophils # Seg Neutrophils # Man Lymphocytes # (Manual) Monocytes # (Manual) PT INR D-Dimer Heparin Anti-Xa Level POC ABG pH ABG pH POC ABG pCO2 POC ABG pO2 209 H ABG pO2 ABG HCO3 ABG O2 Saturation ABG Base Excess ABG Hemoglobin Oxyhemoglobin Sodium Potassium Chloride Carbon Dioxide BUN Creatinine Glucose POC Glucose 145 H Lactic Acid Calcium Ionized Calcium Phosphorus Magnesium Iron TIBC Ferritin Total Bilirubin Direct Bilirubin AST ALT Alkaline Phosphatase Total Creatine Kinase 84406 H CK-MB (CK-2) Troponin T C-Reactive Protein Total Protein Albumin Triglycerides LDL Cholesterol Direct HDL Cholesterol Free T4 PTH Intact Urine WBC (Auto) Urine Creatinine Salicylates Acetaminophen Crossmatch 03/21/19 03/21/19 03/21/19 08:29 11:43 12:00 WBC RBC Hgb Hct MCV MCHC RDW Plt Count Lymph % (Auto) [place] % (Auto) Lymph # [place] # Seg Neutrophils % Seg Neuts % (Manual) Lymphocytes % (Manual) Monocytes % (Manual) Nucleated RBC % Seg Neutrophils # Seg Neutrophils # Man Lymphocytes # (Manual) Monocytes # (Manual) PT INR D-Dimer Heparin Anti-Xa Level POC ABG pH ABG pH POC ABG pCO2 POC ABG pO2 ABG pO2 ABG HCO3 ABG O2 Saturation ABG Base Excess ABG Hemoglobin Oxyhemoglobin Sodium Potassium Chloride Carbon Dioxide BUN Creatinine Glucose POC Glucose 123 H Lactic Acid 2.60 H* 2.20 H* Calcium Ionized Calcium Phosphorus Magnesium Iron TIBC Ferritin Total Bilirubin Direct Bilirubin AST ALT Alkaline Phosphatase Total Creatine Kinase CK-MB (CK-2) Troponin T C-Reactive Protein Total Protein Albumin Triglycerides LDL Cholesterol Direct HDL Cholesterol Free T4 PTH Intact Urine WBC (Auto) Urine Creatinine Salicylates Acetaminophen Crossmatch 03/21/19 03/21/19 03/21/19 14:11 18:28 19:32 WBC RBC Hgb Hct MCV MCHC RDW Plt Count Lymph % (Auto) [place] % (Auto) Lymph # [place] # Seg Neutrophils % Seg Neuts % (Manual) Lymphocytes % (Manual) Monocytes % (Manual) Nucleated RBC % Seg Neutrophils # Seg Neutrophils # Man Lymphocytes # (Manual) Monocytes # (Manual) PT INR D-Dimer Heparin Anti-Xa Level POC ABG pH 7.293 L ABG pH POC ABG pCO2 POC ABG pO2 ABG pO2 ABG HCO3 ABG O2 Saturation ABG Base Excess ABG Hemoglobin Oxyhemoglobin Sodium Potassium Chloride Carbon Dioxide BUN Creatinine Glucose POC Glucose 153 H Lactic Acid 2.10 H* Calcium Ionized Calcium Phosphorus Magnesium Iron TIBC Ferritin Total Bilirubin Direct Bilirubin AST ALT Alkaline Phosphatase Total Creatine Kinase CK-MB (CK-2) Troponin T C-Reactive Protein Total Protein Albumin Triglycerides LDL Cholesterol Direct HDL Cholesterol Free T4 PTH Intact Urine WBC (Auto) Urine Creatinine Salicylates Acetaminophen Crossmatch 03/21/19 03/22/19 03/22/19 23:38 05:08 05:51 WBC RBC Hgb Hct MCV MCHC RDW Plt Count Lymph % (Auto) [place] % (Auto) Lymph # [place] # Seg Neutrophils % Seg Neuts % (Manual) Lymphocytes % (Manual) Monocytes % (Manual) Nucleated RBC % Seg Neutrophils # Seg Neutrophils # Man Lymphocytes # (Manual) Monocytes # (Manual) PT INR D-Dimer Heparin Anti-Xa Level POC ABG pH 7.283 L ABG pH POC ABG pCO2 POC ABG pO2 53 L ABG pO2 ABG HCO3 ABG O2 Saturation ABG Base Excess ABG Hemoglobin Oxyhemoglobin Sodium Potassium Chloride Carbon Dioxide BUN Creatinine Glucose POC Glucose 149 H 131 H Lactic Acid Calcium Ionized Calcium Phosphorus Magnesium Iron TIBC Ferritin Total Bilirubin Direct Bilirubin AST ALT Alkaline Phosphatase Total Creatine Kinase CK-MB (CK-2) Troponin T C-Reactive Protein Total Protein Albumin Triglycerides LDL Cholesterol Direct HDL Cholesterol Free T4 PTH Intact Urine WBC (Auto) Urine Creatinine Salicylates Acetaminophen Crossmatch 03/22/19 03/22/19 03/22/19 08:00 08:00 18:19 WBC 36.7 H RBC Hgb 11.0 L Hct 33.5 L MCV MCHC RDW 15.5 H Plt Count 43 L Lymph % (Auto) [place] % (Auto) Lymph # [place] # Seg Neutrophils % Seg Neuts % (Manual) 87.0 H Lymphocytes % (Manual) 7.0 L Monocytes % (Manual) Nucleated RBC % Seg Neutrophils # Seg Neutrophils # Man 31.9 H Lymphocytes # (Manual) Monocytes # (Manual) PT INR D-Dimer Heparin Anti-Xa Level POC ABG pH ABG pH POC ABG pCO2 46.4 H POC ABG pO2 108 H ABG pO2 ABG HCO3 ABG O2 Saturation ABG Base Excess ABG Hemoglobin Oxyhemoglobin Sodium 132 L Potassium 5.6 H Chloride 89.6 L Carbon Dioxide 20 L BUN 101 H Creatinine 7.4 H Glucose 124 H POC Glucose Lactic Acid Calcium 5.2 L* Ionized Calcium Phosphorus Magnesium Iron TIBC Ferritin Total Bilirubin 2.80 H Direct Bilirubin AST 119 H ALT 86 H Alkaline Phosphatase 245 H Total Creatine Kinase CK-MB (CK-2) Troponin T C-Reactive Protein Total Protein 5.6 L Albumin 2.5 L Triglycerides LDL Cholesterol Direct HDL Cholesterol Free T4 PTH Intact Urine WBC (Auto) Urine Creatinine Salicylates Acetaminophen Crossmatch 03/22/19 03/23/19 03/23/19 20:37 04:49 05:28 WBC 35.9 H RBC Hgb 10.8 L Hct 33.2 L MCV MCHC RDW 15.5 H Plt Count 49 L Lymph % (Auto) [place] % (Auto) Lymph # [place] # Seg Neutrophils % Seg Neuts % (Manual) 81.0 H Lymphocytes % (Manual) 3.5 L Monocytes % (Manual) Nucleated RBC % Seg Neutrophils # Seg Neutrophils # Man 29.1 H Lymphocytes # (Manual) Monocytes # (Manual) 1.4 H PT INR D-Dimer Heparin Anti-Xa Level POC ABG pH 7.296 L ABG pH POC ABG pCO2 46.2 H POC ABG pO2 ABG pO2 ABG HCO3 ABG O2 Saturation ABG Base Excess ABG Hemoglobin Oxyhemoglobin Sodium 129 L Potassium 5.2 H Chloride 91.1 L Carbon Dioxide BUN 91 H Creatinine 6.6 H Glucose 190 H POC Glucose Lactic Acid Calcium 5.3 L* Ionized Calcium Phosphorus Magnesium Iron TIBC Ferritin Total Bilirubin 1.80 H Direct Bilirubin AST 80 H ALT 62 H Alkaline Phosphatase 209 H Total Creatine Kinase 9758 H CK-MB (CK-2) Troponin T C-Reactive Protein Total Protein 5.2 L Albumin 2.2 L Triglycerides LDL Cholesterol Direct HDL Cholesterol Free T4 PTH Intact Urine WBC (Auto) Urine Creatinine Salicylates Acetaminophen Crossmatch 03/23/19 03/23/19 03/23/19 05:28 05:31 11:33 WBC 29.7 H RBC 3.59 L Hgb 10.1 L Hct 31.1 L MCV MCHC RDW 15.4 H Plt Count 47 L Lymph % (Auto) [place] % (Auto) Lymph # [place] # Seg Neutrophils % Seg Neuts % (Manual) 89.0 H Lymphocytes % (Manual) 6.0 L Monocytes % (Manual) Nucleated RBC % 1.0 H Seg Neutrophils # Seg Neutrophils # Man 26.4 H Lymphocytes # (Manual) Monocytes # (Manual) PT INR D-Dimer Heparin Anti-Xa Level POC ABG pH ABG pH POC ABG pCO2 POC ABG pO2 ABG pO2 ABG HCO3 ABG O2 Saturation ABG Base Excess ABG Hemoglobin Oxyhemoglobin Sodium Potassium Chloride Carbon Dioxide BUN Creatinine Glucose POC Glucose 122 H 113 H Lactic Acid Calcium Ionized Calcium Phosphorus Magnesium Iron TIBC Ferritin Total Bilirubin Direct Bilirubin AST ALT Alkaline Phosphatase Total Creatine Kinase CK-MB (CK-2) Troponin T C-Reactive Protein Total Protein Albumin Triglycerides LDL Cholesterol Direct HDL Cholesterol Free T4 PTH Intact Urine WBC (Auto) Urine Creatinine Salicylates Acetaminophen Crossmatch 03/23/19 03/24/19 03/24/19 17:47 00:00 04:50 WBC 35.0 H RBC Hgb 10.4 L Hct 32.4 L MCV MCHC RDW Plt Count 60 L Lymph % (Auto) [place] % (Auto) Lymph # [place] # Seg Neutrophils % Seg Neuts % (Manual) 93.0 H Lymphocytes % (Manual) 5.0 L Monocytes % (Manual) Nucleated RBC % 7.0 H Seg Neutrophils # Seg Neutrophils # Man 32.6 H Lymphocytes # (Manual) Monocytes # (Manual) PT INR D-Dimer Heparin Anti-Xa Level POC ABG pH ABG pH POC ABG pCO2 POC ABG pO2 ABG pO2 ABG HCO3 ABG O2 Saturation ABG Base Excess ABG Hemoglobin Oxyhemoglobin Sodium Potassium Chloride Carbon Dioxide BUN Creatinine Glucose POC Glucose 111 H 108 H Lactic Acid Calcium Ionized Calcium Phosphorus Magnesium Iron TIBC Ferritin Total Bilirubin Direct Bilirubin AST ALT Alkaline Phosphatase Total Creatine Kinase CK-MB (CK-2) Troponin T C-Reactive Protein Total Protein Albumin Triglycerides LDL Cholesterol Direct HDL Cholesterol Free T4 PTH Intact Urine WBC (Auto) Urine Creatinine Salicylates Acetaminophen Crossmatch 03/24/19 03/24/19 03/24/19 04:50 05:06 12:55 WBC RBC Hgb Hct MCV MCHC RDW Plt Count Lymph % (Auto) [place] % (Auto) Lymph # [place] # Seg Neutrophils % Seg Neuts % (Manual) Lymphocytes % (Manual) Monocytes % (Manual) Nucleated RBC % Seg Neutrophils # Seg Neutrophils # Man Lymphocytes # (Manual) Monocytes # (Manual) PT INR D-Dimer Heparin Anti-Xa Level POC ABG pH ABG pH POC ABG pCO2 POC ABG pO2 ABG pO2 ABG HCO3 ABG O2 Saturation ABG Base Excess ABG Hemoglobin Oxyhemoglobin Sodium 134 L Potassium 5.1 H Chloride 95.3 L Carbon Dioxide 21 L BUN 85 H Creatinine 6.4 H Glucose 109 H POC Glucose 112 H 110 H Lactic Acid Calcium 5.8 L* Ionized Calcium Phosphorus Magnesium Iron TIBC Ferritin Total Bilirubin Direct Bilirubin AST ALT Alkaline Phosphatase Total Creatine Kinase 5747 H CK-MB (CK-2) Troponin T C-Reactive Protein Total Protein Albumin Triglycerides LDL Cholesterol Direct HDL Cholesterol Free T4 PTH Intact Urine WBC (Auto) Urine Creatinine Salicylates Acetaminophen Crossmatch 03/24/19 03/25/19 03/25/19 23:29 05:00 05:00 WBC RBC Hgb Hct MCV MCHC RDW Plt Count Lymph % (Auto) [place] % (Auto) Lymph # [place] # Seg Neutrophils % Seg Neuts % (Manual) Lymphocytes % (Manual) Monocytes % (Manual) Nucleated RBC % Seg Neutrophils # Seg Neutrophils # Man Lymphocytes # (Manual) Monocytes # (Manual) PT INR D-Dimer Heparin Anti-Xa Level POC ABG pH ABG pH POC ABG pCO2 POC ABG pO2 ABG pO2 ABG HCO3 ABG O2 Saturation ABG Base Excess ABG Hemoglobin Oxyhemoglobin Sodium 133 L Potassium Chloride 94.0 L Carbon Dioxide 21 L BUN 81 H Creatinine 6.4 H Glucose POC Glucose 109 H Lactic Acid Calcium 5.5 L* Ionized Calcium Phosphorus Magnesium Iron TIBC Ferritin Total Bilirubin Direct Bilirubin AST 80 H ALT Alkaline Phosphatase 202 H Total Creatine Kinase 3589 H CK-MB (CK-2) Troponin T C-Reactive Protein Total Protein 5.3 L Albumin 2.4 L Triglycerides LDL Cholesterol Direct HDL Cholesterol Free T4 PTH Intact 329.9 H Urine WBC (Auto) Urine Creatinine Salicylates Acetaminophen Crossmatch 03/25/19 03/25/19 03/26/19 05:00 06:30 04:30 WBC 23.3 H RBC 3.61 L Hgb 10.2 L Hct 31.2 L MCV MCHC RDW Plt Count 57 L Lymph % (Auto) [place] % (Auto) Lymph # [place] # Seg Neutrophils % Seg Neuts % (Manual) 92.0 H Lymphocytes % (Manual) 6.0 L Monocytes % (Manual) Nucleated RBC % Seg Neutrophils # Seg Neutrophils # Man 21.4 H Lymphocytes # (Manual) Monocytes # (Manual) PT INR D-Dimer Heparin Anti-Xa Level POC ABG pH ABG pH 7.326 L POC ABG pCO2 POC ABG pO2 ABG pO2 109.5 H 137.4 H ABG HCO3 18.8 L 18.6 L ABG O2 Saturation ABG Base Excess -4.4 L -6.8 L ABG Hemoglobin 10.1 L 9.9 L Oxyhemoglobin Sodium Potassium Chloride Carbon Dioxide BUN Creatinine Glucose POC Glucose Lactic Acid Calcium Ionized Calcium Phosphorus Magnesium Iron TIBC Ferritin Total Bilirubin Direct Bilirubin AST ALT Alkaline Phosphatase Total Creatine Kinase CK-MB (CK-2) Troponin T C-Reactive Protein Total Protein Albumin Triglycerides LDL Cholesterol Direct HDL Cholesterol Free T4 PTH Intact Urine WBC (Auto) Urine Creatinine Salicylates Acetaminophen Crossmatch 03/26/19 03/26/19 03/26/19 23:22 Unknown Unknown WBC 19.5 H RBC 3.44 L Hgb 9.8 L Hct 29.9 L MCV MCHC RDW Plt Count 85 L Lymph % (Auto) [place] % (Auto) Lymph # [place] # Seg Neutrophils % Seg Neuts % (Manual) 95.0 H Lymphocytes % (Manual) 3.0 L Monocytes % (Manual) Nucleated RBC % Seg Neutrophils # Seg Neutrophils # Man 18.5 H Lymphocytes # (Manual) 0.6 L Monocytes # (Manual) PT INR D-Dimer Heparin Anti-Xa Level POC ABG pH ABG pH POC ABG pCO2 POC ABG pO2 ABG pO2 ABG HCO3 ABG O2 Saturation ABG Base Excess ABG Hemoglobin Oxyhemoglobin Sodium 135 L Potassium 5.2 H D Chloride 92.2 L Carbon Dioxide 18 L BUN 109 H Creatinine 8.5 H Glucose 117 H POC Glucose 69 L Lactic Acid Calcium 4.5 L* D Ionized Calcium Phosphorus Magnesium Iron TIBC Ferritin Total Bilirubin Direct Bilirubin AST ALT Alkaline Phosphatase Total Creatine Kinase 4527 H CK-MB (CK-2) Troponin T C-Reactive Protein Total Protein Albumin Triglycerides LDL Cholesterol Direct HDL Cholesterol Free T4 PTH Intact Urine WBC (Auto) Urine Creatinine Salicylates Acetaminophen Crossmatch 03/27/19 03/27/19 03/27/19 04:30 04:30 09:00 WBC 19.2 H RBC 3.42 L Hgb 9.9 L Hct 30.0 L MCV MCHC RDW Plt Count 84 L Lymph % (Auto) [place] % (Auto) Lymph # [place] # Seg Neutrophils % Seg Neuts % (Manual) Lymphocytes % (Manual) Monocytes % (Manual) Nucleated RBC % Seg Neutrophils # Seg Neutrophils # Man Lymphocytes # (Manual) Monocytes # (Manual) PT INR D-Dimer Heparin Anti-Xa Level POC ABG pH ABG pH POC ABG pCO2 POC ABG pO2 ABG pO2 ABG HCO3 ABG O2 Saturation ABG Base Excess ABG Hemoglobin Oxyhemoglobin Sodium 135 L Potassium Chloride 93.5 L Carbon Dioxide BUN 84 H Creatinine 7.1 H Glucose POC Glucose Lactic Acid Calcium 5.0 L* Ionized Calcium Phosphorus Magnesium Iron TIBC Ferritin Total Bilirubin Direct Bilirubin AST 78 H ALT Alkaline Phosphatase 135 H Total Creatine Kinase 4677 H CK-MB (CK-2) Troponin T C-Reactive Protein Total Protein 4.8 L Albumin 2.3 L Triglycerides 409 H LDL Cholesterol Direct HDL Cholesterol Free T4 PTH Intact Urine WBC (Auto) Urine Creatinine Salicylates Acetaminophen Crossmatch 03/27/19 03/27/19 03/27/19 12:37 14:15 14:15 WBC RBC Hgb 9.7 L Hct 29.5 L MCV MCHC RDW Plt Count 87 L Lymph % (Auto) [place] % (Auto) Lymph # [place] # Seg Neutrophils % Seg Neuts % (Manual) Lymphocytes % (Manual) Monocytes % (Manual) Nucleated RBC % Seg Neutrophils # Seg Neutrophils # Man Lymphocytes # (Manual) Monocytes # (Manual) PT 15.9 H INR 1.30 H D-Dimer Heparin Anti-Xa Level POC ABG pH ABG pH POC ABG pCO2 POC ABG pO2 ABG pO2 ABG HCO3 ABG O2 Saturation ABG Base Excess ABG Hemoglobin Oxyhemoglobin Sodium Potassium Chloride Carbon Dioxide BUN Creatinine Glucose POC Glucose 129 H Lactic Acid Calcium Ionized Calcium Phosphorus Magnesium Iron TIBC Ferritin Total Bilirubin Direct Bilirubin AST ALT Alkaline Phosphatase Total Creatine Kinase CK-MB (CK-2) Troponin T C-Reactive Protein Total Protein Albumin Triglycerides LDL Cholesterol Direct HDL Cholesterol Free T4 PTH Intact Urine WBC (Auto) Urine Creatinine Salicylates Acetaminophen Crossmatch 03/27/19 03/27/19 03/27/19 18:00 19:22 19:23 WBC RBC Hgb Hct MCV MCHC RDW Plt Count Lymph % (Auto) [place] % (Auto) Lymph # [place] # Seg Neutrophils % Seg Neuts % (Manual) Lymphocytes % (Manual) Monocytes % (Manual) Nucleated RBC % Seg Neutrophils # Seg Neutrophils # Man Lymphocytes # (Manual) Monocytes # (Manual) PT INR D-Dimer Heparin Anti-Xa Level < 0.10 L POC ABG pH ABG pH POC ABG pCO2 POC ABG pO2 ABG pO2 ABG HCO3 ABG O2 Saturation ABG Base Excess ABG Hemoglobin Oxyhemoglobin Sodium Potassium Chloride Carbon Dioxide BUN Creatinine Glucose POC Glucose 121 H Lactic Acid Calcium Ionized Calcium Phosphorus Magnesium Iron TIBC Ferritin Total Bilirubin Direct Bilirubin AST ALT Alkaline Phosphatase Total Creatine Kinase 4517 H CK-MB (CK-2) Troponin T C-Reactive Protein Total Protein Albumin Triglycerides LDL Cholesterol Direct HDL Cholesterol Free T4 PTH Intact Urine WBC (Auto) Urine Creatinine Salicylates Acetaminophen Crossmatch 03/27/19 03/27/19 03/28/19 22:10 23:52 03:49 WBC RBC Hgb Hct MCV MCHC RDW Plt Count Lymph % (Auto) [place] % (Auto) Lymph # [place] # Seg Neutrophils % Seg Neuts % (Manual) Lymphocytes % (Manual) Monocytes % (Manual) Nucleated RBC % Seg Neutrophils # Seg Neutrophils # Man Lymphocytes # (Manual) Monocytes # (Manual) PT INR D-Dimer Heparin Anti-Xa Level POC ABG pH 7.338 L ABG pH POC ABG pCO2 33.1 L POC ABG pO2 ABG pO2 ABG HCO3 ABG O2 Saturation ABG Base Excess ABG Hemoglobin Oxyhemoglobin Sodium Potassium Chloride Carbon Dioxide BUN Creatinine Glucose POC Glucose 113 H 117 H Lactic Acid Calcium Ionized Calcium Phosphorus Magnesium Iron TIBC Ferritin Total Bilirubin Direct Bilirubin AST ALT Alkaline Phosphatase Total Creatine Kinase CK-MB (CK-2) Troponin T C-Reactive Protein Total Protein Albumin Triglycerides LDL Cholesterol Direct HDL Cholesterol Free T4 PTH Intact Urine WBC (Auto) Urine Creatinine Salicylates Acetaminophen Crossmatch 03/28/19 03/28/19 03/28/19 05:13 05:13 06:18 WBC RBC Hgb Hct MCV MCHC RDW Plt Count Lymph % (Auto) [place] % (Auto) Lymph # [place] # Seg Neutrophils % Seg Neuts % (Manual) Lymphocytes % (Manual) Monocytes % (Manual) Nucleated RBC % Seg Neutrophils # Seg Neutrophils # Man Lymphocytes # (Manual) Monocytes # (Manual) PT INR D-Dimer Heparin Anti-Xa Level 0.23 L POC ABG pH ABG pH POC ABG pCO2 POC ABG pO2 ABG pO2 ABG HCO3 ABG O2 Saturation ABG Base Excess ABG Hemoglobin Oxyhemoglobin Sodium 135 L Potassium 5.5 H D Chloride 95.1 L Carbon Dioxide 16 L D BUN 129 H Creatinine 9.3 H Glucose 158 H POC Glucose 202 H Lactic Acid Calcium 4.0 L* D Ionized Calcium Phosphorus 12.40 H Magnesium Iron TIBC Ferritin Total Bilirubin Direct Bilirubin AST ALT Alkaline Phosphatase Total Creatine Kinase 4266 H CK-MB (CK-2) Troponin T C-Reactive Protein Total Protein Albumin Triglycerides LDL Cholesterol Direct HDL Cholesterol Free T4 PTH Intact Urine WBC (Auto) Urine Creatinine Salicylates Acetaminophen Crossmatch 03/28/19 03/28/19 03/28/19 08:25 10:00 12:00 WBC RBC Hgb 4.9 L* D Hct 15.4 L* D MCV MCHC RDW Plt Count Lymph % (Auto) [place] % (Auto) Lymph # [place] # Seg Neutrophils % Seg Neuts % (Manual) Lymphocytes % (Manual) Monocytes % (Manual) Nucleated RBC % Seg Neutrophils # Seg Neutrophils # Man Lymphocytes # (Manual) Monocytes # (Manual) PT 17.9 H INR 1.52 H D-Dimer 4845.98 H Heparin Anti-Xa Level POC ABG pH ABG pH POC ABG pCO2 POC ABG pO2 ABG pO2 ABG HCO3 ABG O2 Saturation ABG Base Excess ABG Hemoglobin Oxyhemoglobin Sodium Potassium Chloride Carbon Dioxide BUN Creatinine Glucose POC Glucose Lactic Acid Calcium Ionized Calcium Phosphorus Magnesium Iron TIBC Ferritin Total Bilirubin Direct Bilirubin AST ALT Alkaline Phosphatase Total Creatine Kinase CK-MB (CK-2) Troponin T C-Reactive Protein Total Protein Albumin Triglycerides LDL Cholesterol Direct HDL Cholesterol Free T4 PTH Intact Urine WBC (Auto) Urine Creatinine Salicylates Acetaminophen Crossmatch See Detail 03/28/19 03/28/19 03/28/19 12:28 14:10 17:43 WBC RBC Hgb 5.9 L* Hct 18.3 L* MCV MCHC RDW Plt Count Lymph % (Auto) [place] % (Auto) Lymph # [place] # Seg Neutrophils % Seg Neuts % (Manual) Lymphocytes % (Manual) Monocytes % (Manual) Nucleated RBC % Seg Neutrophils # Seg Neutrophils # Man Lymphocytes # (Manual) Monocytes # (Manual) PT INR D-Dimer Heparin Anti-Xa Level POC ABG pH ABG pH POC ABG pCO2 POC ABG pO2 ABG pO2 ABG HCO3 ABG O2 Saturation ABG Base Excess ABG Hemoglobin Oxyhemoglobin Sodium Potassium Chloride Carbon Dioxide BUN Creatinine Glucose POC Glucose 153 H 159 H Lactic Acid Calcium Ionized Calcium Phosphorus Magnesium Iron TIBC Ferritin Total Bilirubin Direct Bilirubin AST ALT Alkaline Phosphatase Total Creatine Kinase CK-MB (CK-2) Troponin T C-Reactive Protein Total Protein Albumin Triglycerides LDL Cholesterol Direct HDL Cholesterol Free T4 PTH Intact Urine WBC (Auto) Urine Creatinine Salicylates Acetaminophen Crossmatch 03/28/19 03/28/19 03/28/19 18:10 Unknown 23:59 WBC 24.8 H RBC 3.42 L Hgb 10.2 L D Hct 31.1 L D MCV MCHC RDW 15.4 H Plt Count 54 L Lymph % (Auto) [place] % (Auto) Lymph # [place] # Seg Neutrophils % Seg Neuts % (Manual) 91.0 H Lymphocytes % (Manual) 8.0 L Monocytes % (Manual) Nucleated RBC % Seg Neutrophils # Seg Neutrophils # Man 22.6 H Lymphocytes # (Manual) Monocytes # (Manual) PT INR D-Dimer Heparin Anti-Xa Level POC ABG pH ABG pH POC ABG pCO2 POC ABG pO2 ABG pO2 ABG HCO3 ABG O2 Saturation ABG Base Excess ABG Hemoglobin Oxyhemoglobin Sodium Potassium 5.7 H Chloride Carbon Dioxide BUN Creatinine Glucose POC Glucose 107 H Lactic Acid Calcium Ionized Calcium Phosphorus Magnesium Iron TIBC Ferritin Total Bilirubin Direct Bilirubin AST ALT Alkaline Phosphatase Total Creatine Kinase CK-MB (CK-2) Troponin T C-Reactive Protein Total Protein Albumin Triglycerides LDL Cholesterol Direct HDL Cholesterol Free T4 PTH Intact Urine WBC (Auto) Urine Creatinine Salicylates Acetaminophen Crossmatch 03/29/19 03/29/19 03/29/19 04:29 05:46 06:22 WBC RBC Hgb 8.6 L Hct 25.7 L MCV MCHC RDW Plt Count 93 L Lymph % (Auto) [place] % (Auto) Lymph # [place] # Seg Neutrophils % Seg Neuts % (Manual) Lymphocytes % (Manual) Monocytes % (Manual) Nucleated RBC % Seg Neutrophils # Seg Neutrophils # Man Lymphocytes # (Manual) Monocytes # (Manual) PT INR D-Dimer Heparin Anti-Xa Level POC ABG pH ABG pH POC ABG pCO2 32.2 L POC ABG pO2 ABG pO2 ABG HCO3 ABG O2 Saturation ABG Base Excess ABG Hemoglobin Oxyhemoglobin Sodium Potassium Chloride Carbon Dioxide BUN Creatinine Glucose POC Glucose 113 H Lactic Acid Calcium Ionized Calcium Phosphorus Magnesium Iron TIBC Ferritin Total Bilirubin Direct Bilirubin AST ALT Alkaline Phosphatase Total Creatine Kinase CK-MB (CK-2) Troponin T C-Reactive Protein Total Protein Albumin Triglycerides LDL Cholesterol Direct HDL Cholesterol Free T4 PTH Intact Urine WBC (Auto) Urine Creatinine Salicylates Acetaminophen Crossmatch 03/29/19 03/29/19 03/29/19 06:22 06:22 06:22 WBC 23.2 H RBC 2.91 L Hgb 8.6 L Hct 25.8 L MCV MCHC RDW Plt Count 91 L Lymph % (Auto) [place] % (Auto) Lymph # [place] # Seg Neutrophils % Seg Neuts % (Manual) Lymphocytes % (Manual) Monocytes % (Manual) Nucleated RBC % Seg Neutrophils # Seg Neutrophils # Man Lymphocytes # (Manual) Monocytes # (Manual) PT INR D-Dimer Heparin Anti-Xa Level POC ABG pH ABG pH POC ABG pCO2 POC ABG pO2 ABG pO2 ABG HCO3 ABG O2 Saturation ABG Base Excess ABG Hemoglobin Oxyhemoglobin Sodium 133 L Potassium Chloride 93.8 L Carbon Dioxide 18 L BUN 109 H Creatinine 7.4 H Glucose 124 H POC Glucose Lactic Acid Calcium 4.6 L* Ionized Calcium Phosphorus Magnesium Iron TIBC Ferritin Total Bilirubin Direct Bilirubin AST ALT Alkaline Phosphatase Total Creatine Kinase 3401 H CK-MB (CK-2) Troponin T C-Reactive Protein Total Protein Albumin Triglycerides 309 H LDL Cholesterol Direct HDL Cholesterol Free T4 PTH Intact Urine WBC (Auto) Urine Creatinine Salicylates Acetaminophen Crossmatch 03/29/19 03/29/19 03/29/19 11:48 11:48 18:24 WBC RBC Hgb 7.8 L Hct 23.2 L MCV MCHC RDW Plt Count Lymph % (Auto) [place] % (Auto) Lymph # [place] # Seg Neutrophils % Seg Neuts % (Manual) Lymphocytes % (Manual) Monocytes % (Manual) Nucleated RBC % Seg Neutrophils # Seg Neutrophils # Man Lymphocytes # (Manual) Monocytes # (Manual) PT 15.3 H INR 1.24 H D-Dimer Heparin Anti-Xa Level POC ABG pH ABG pH POC ABG pCO2 POC ABG pO2 ABG pO2 ABG HCO3 ABG O2 Saturation ABG Base Excess ABG Hemoglobin Oxyhemoglobin Sodium Potassium Chloride Carbon Dioxide BUN Creatinine Glucose POC Glucose 122 H Lactic Acid Calcium Ionized Calcium Phosphorus Magnesium Iron TIBC Ferritin Total Bilirubin Direct Bilirubin AST ALT Alkaline Phosphatase Total Creatine Kinase CK-MB (CK-2) Troponin T C-Reactive Protein Total Protein Albumin Triglycerides LDL Cholesterol Direct HDL Cholesterol Free T4 PTH Intact Urine WBC (Auto) Urine Creatinine Salicylates Acetaminophen Crossmatch 03/30/19 03/30/19 03/30/19 00:40 04:31 05:04 WBC RBC Hgb 7.6 L Hct 23.0 L MCV MCHC RDW Plt Count Lymph % (Auto) [place] % (Auto) Lymph # [place] # Seg Neutrophils % Seg Neuts % (Manual) Lymphocytes % (Manual) Monocytes % (Manual) Nucleated RBC % Seg Neutrophils # Seg Neutrophils # Man Lymphocytes # (Manual) Monocytes # (Manual) PT INR D-Dimer Heparin Anti-Xa Level POC ABG pH 7.346 L ABG pH POC ABG pCO2 POC ABG pO2 62 L ABG pO2 ABG HCO3 ABG O2 Saturation ABG Base Excess ABG Hemoglobin Oxyhemoglobin Sodium Potassium Chloride Carbon Dioxide BUN 79 H Creatinine 6.4 H Glucose POC Glucose Lactic Acid Calcium 6.1 L D Ionized Calcium Phosphorus Magnesium Iron TIBC Ferritin Total Bilirubin Direct Bilirubin AST ALT Alkaline Phosphatase Total Creatine Kinase CK-MB (CK-2) Troponin T C-Reactive Protein Total Protein Albumin Triglycerides LDL Cholesterol Direct HDL Cholesterol Free T4 PTH Intact Urine WBC (Auto) Urine Creatinine Salicylates Acetaminophen Crossmatch 03/30/19 03/30/19 03/30/19 08:45 12:09 22:43 WBC 14.3 H RBC 2.33 L Hgb 7.0 L 7.4 L Hct 21.0 L 22.3 L MCV MCHC RDW 15.6 H Plt Count 135 L Lymph % (Auto) [place] % (Auto) Lymph # [place] # Seg Neutrophils % Seg Neuts % (Manual) Lymphocytes % (Manual) Monocytes % (Manual) Nucleated RBC % Seg Neutrophils # Seg Neutrophils # Man Lymphocytes # (Manual) Monocytes # (Manual) PT INR D-Dimer Heparin Anti-Xa Level POC ABG pH ABG pH POC ABG pCO2 POC ABG pO2 ABG pO2 ABG HCO3 ABG O2 Saturation ABG Base Excess ABG Hemoglobin Oxyhemoglobin Sodium Potassium Chloride Carbon Dioxide BUN Creatinine Glucose POC Glucose Lactic Acid Calcium Ionized Calcium 3.7 L Phosphorus Magnesium Iron TIBC Ferritin Total Bilirubin Direct Bilirubin AST ALT Alkaline Phosphatase Total Creatine Kinase CK-MB (CK-2) Troponin T C-Reactive Protein Total Protein Albumin Triglycerides LDL Cholesterol Direct HDL Cholesterol Free T4 PTH Intact Urine WBC (Auto) Urine Creatinine Salicylates Acetaminophen Crossmatch 03/30/19 03/30/19 03/31/19 23:38 Unknown 04:44 WBC 11.5 H RBC 2.40 L Hgb 7.3 L Hct 21.9 L MCV MCHC RDW 15.4 H Plt Count Lymph % (Auto) 10.6 L [place] % (Auto) Lymph # [place] # Seg Neutrophils % 81.7 H Seg Neuts % (Manual) Lymphocytes % (Manual) Monocytes % (Manual) Nucleated RBC % Seg Neutrophils # 9.4 H Seg Neutrophils # Man Lymphocytes # (Manual) Monocytes # (Manual) PT INR D-Dimer Heparin Anti-Xa Level POC ABG pH ABG pH POC ABG pCO2 POC ABG pO2 ABG pO2 ABG HCO3 ABG O2 Saturation ABG Base Excess ABG Hemoglobin Oxyhemoglobin Sodium Potassium Chloride Carbon Dioxide BUN Creatinine Glucose POC Glucose 155 H Lactic Acid Calcium Ionized Calcium Phosphorus Magnesium Iron TIBC Ferritin Total Bilirubin Direct Bilirubin 0.4 H AST 63 H ALT Alkaline Phosphatase Total Creatine Kinase CK-MB (CK-2) Troponin T C-Reactive Protein Total Protein 4.9 L Albumin 2.2 L Triglycerides LDL Cholesterol Direct HDL Cholesterol Free T4 PTH Intact Urine WBC (Auto) Urine Creatinine Salicylates Acetaminophen Crossmatch 03/31/19 03/31/19 03/31/19 04:44 05:44 08:20 WBC RBC Hgb Hct MCV MCHC RDW Plt Count Lymph % (Auto) [place] % (Auto) Lymph # [place] # Seg Neutrophils % Seg Neuts % (Manual) Lymphocytes % (Manual) Monocytes % (Manual) Nucleated RBC % Seg Neutrophils # Seg Neutrophils # Man Lymphocytes # (Manual) Monocytes # (Manual) PT INR D-Dimer Heparin Anti-Xa Level POC ABG pH ABG pH POC ABG pCO2 53.5 H POC ABG pO2 62 L ABG pO2 ABG HCO3 ABG O2 Saturation ABG Base Excess ABG Hemoglobin Oxyhemoglobin Sodium 135 L Potassium Chloride 96.7 L Carbon Dioxide 19 L BUN 94 H Creatinine 7.8 H Glucose POC Glucose Lactic Acid Calcium 5.3 L* Ionized Calcium Phosphorus 8.20 H Magnesium Iron TIBC Ferritin Total Bilirubin Direct Bilirubin 0.4 H AST 60 H ALT Alkaline Phosphatase Total Creatine Kinase CK-MB (CK-2) Troponin T C-Reactive Protein Total Protein 4.8 L Albumin 2.1 L Triglycerides LDL Cholesterol Direct HDL Cholesterol Free T4 PTH Intact Urine WBC (Auto) Urine Creatinine Salicylates Acetaminophen Crossmatch 03/31/19 04/01/19 04/01/19 22:14 04:27 04:27 WBC RBC 2.60 L Hgb 8.0 L Hct 24.1 L MCV MCHC RDW 15.7 H Plt Count Lymph % (Auto) 7.9 L [place] % (Auto) Lymph # 0.7 L [place] # Seg Neutrophils % 83.6 H Seg Neuts % (Manual) Lymphocytes % (Manual) Monocytes % (Manual) Nucleated RBC % Seg Neutrophils # Seg Neutrophils # Man Lymphocytes # (Manual) Monocytes # (Manual) PT INR D-Dimer Heparin Anti-Xa Level POC ABG pH 7.286 L ABG pH POC ABG pCO2 54.7 H POC ABG pO2 179 H ABG pO2 ABG HCO3 ABG O2 Saturation ABG Base Excess ABG Hemoglobin Oxyhemoglobin Sodium Potassium Chloride Carbon Dioxide BUN 68 H Creatinine 6.6 H Glucose POC Glucose Lactic Acid Calcium 6.5 L D Ionized Calcium Phosphorus 7.30 H Magnesium Iron TIBC Ferritin Total Bilirubin Direct Bilirubin AST ALT Alkaline Phosphatase Total Creatine Kinase 1652 H CK-MB (CK-2) Troponin T C-Reactive Protein Total Protein Albumin Triglycerides LDL Cholesterol Direct HDL Cholesterol Free T4 PTH Intact Urine WBC (Auto) Urine Creatinine Salicylates Acetaminophen Crossmatch 04/01/19 04/01/19 04/01/19 05:14 05:37 18:37 WBC RBC Hgb Hct MCV MCHC RDW Plt Count Lymph % (Auto) [place] % (Auto) Lymph # [place] # Seg Neutrophils % Seg Neuts % (Manual) Lymphocytes % (Manual) Monocytes % (Manual) Nucleated RBC % Seg Neutrophils # Seg Neutrophils # Man Lymphocytes # (Manual) Monocytes # (Manual) PT INR D-Dimer Heparin Anti-Xa Level POC ABG pH 7.283 L ABG pH POC ABG pCO2 53.4 H POC ABG pO2 241 H ABG pO2 ABG HCO3 ABG O2 Saturation ABG Base Excess ABG Hemoglobin Oxyhemoglobin Sodium Potassium Chloride Carbon Dioxide BUN Creatinine Glucose POC Glucose 111 H 119 H Lactic Acid Calcium Ionized Calcium Phosphorus Magnesium Iron TIBC Ferritin Total Bilirubin Direct Bilirubin AST ALT Alkaline Phosphatase Total Creatine Kinase CK-MB (CK-2) Troponin T C-Reactive Protein Total Protein Albumin Triglycerides LDL Cholesterol Direct HDL Cholesterol Free T4 PTH Intact Urine WBC (Auto) Urine Creatinine Salicylates Acetaminophen Crossmatch 04/01/19 04/02/19 04/02/19 21:28 04:40 05:03 WBC RBC 2.36 L Hgb 7.2 L Hct 21.9 L MCV MCHC RDW 16.0 H Plt Count Lymph % (Auto) 10.8 L [place] % (Auto) Lymph # 0.8 L [place] # Seg Neutrophils % 80.3 H Seg Neuts % (Manual) Lymphocytes % (Manual) Monocytes % (Manual) Nucleated RBC % Seg Neutrophils # Seg Neutrophils # Man Lymphocytes # (Manual) Monocytes # (Manual) PT INR D-Dimer Heparin Anti-Xa Level POC ABG pH 7.299 L 7.300 L ABG pH POC ABG pCO2 48.2 H 45.2 H POC ABG pO2 133 H 107 H ABG pO2 ABG HCO3 ABG O2 Saturation ABG Base Excess ABG Hemoglobin Oxyhemoglobin Sodium Potassium Chloride Carbon Dioxide BUN Creatinine Glucose POC Glucose Lactic Acid Calcium Ionized Calcium Phosphorus Magnesium Iron TIBC Ferritin Total Bilirubin Direct Bilirubin AST ALT Alkaline Phosphatase Total Creatine Kinase CK-MB (CK-2) Troponin T C-Reactive Protein Total Protein Albumin Triglycerides LDL Cholesterol Direct HDL Cholesterol Free T4 PTH Intact Urine WBC (Auto) Urine Creatinine Salicylates Acetaminophen Crossmatch 04/02/19 04/02/19 04/02/19 05:03 05:03 12:15 WBC RBC Hgb 7.4 L Hct 22.6 L MCV MCHC RDW Plt Count Lymph % (Auto) [place] % (Auto) Lymph # [place] # Seg Neutrophils % Seg Neuts % (Manual) Lymphocytes % (Manual) Monocytes % (Manual) Nucleated RBC % Seg Neutrophils # Seg Neutrophils # Man Lymphocytes # (Manual) Monocytes # (Manual) PT INR D-Dimer Heparin Anti-Xa Level POC ABG pH ABG pH POC ABG pCO2 POC ABG pO2 ABG pO2 ABG HCO3 ABG O2 Saturation ABG Base Excess ABG Hemoglobin Oxyhemoglobin Sodium 136 L Potassium Chloride 97.8 L Carbon Dioxide 18 L BUN 82 H Creatinine 8.2 H Glucose POC Glucose Lactic Acid Calcium 6.7 L Ionized Calcium Phosphorus 7.50 H Magnesium Iron 26 L TIBC 138 L Ferritin 607.0 H Total Bilirubin Direct Bilirubin AST ALT Alkaline Phosphatase Total Creatine Kinase CK-MB (CK-2) Troponin T C-Reactive Protein Total Protein Albumin Triglycerides LDL Cholesterol Direct HDL Cholesterol Free T4 PTH Intact Urine WBC (Auto) Urine Creatinine Salicylates Acetaminophen Crossmatch 04/02/19 04/02/19 04/03/19 16:34 17:14 04:18 WBC RBC Hgb Hct MCV MCHC RDW Plt Count Lymph % (Auto) [place] % (Auto) Lymph # [place] # Seg Neutrophils % Seg Neuts % (Manual) Lymphocytes % (Manual) Monocytes % (Manual) Nucleated RBC % Seg Neutrophils # Seg Neutrophils # Man Lymphocytes # (Manual) Monocytes # (Manual) PT INR D-Dimer Heparin Anti-Xa Level POC ABG pH ABG pH POC ABG pCO2 POC ABG pO2 146 H ABG pO2 ABG HCO3 ABG O2 Saturation ABG Base Excess ABG Hemoglobin Oxyhemoglobin Sodium Potassium Chloride Carbon Dioxide BUN Creatinine Glucose POC Glucose 108 H Lactic Acid Calcium Ionized Calcium Phosphorus Magnesium Iron TIBC Ferritin Total Bilirubin Direct Bilirubin AST ALT Alkaline Phosphatase Total Creatine Kinase CK-MB (CK-2) Troponin T C-Reactive Protein Total Protein Albumin Triglycerides LDL Cholesterol Direct HDL Cholesterol Free T4 PTH Intact Urine WBC (Auto) Urine Creatinine Salicylates Acetaminophen Crossmatch See Detail 04/03/19 04/03/19 04/03/19 04:25 08:30 18:24 WBC RBC 2.40 L Hgb 7.3 L Hct 21.9 L MCV MCHC RDW Plt Count Lymph % (Auto) [place] % (Auto) 7.7 H Lymph # 0.9 L [place] # Seg Neutrophils % 74.6 H Seg Neuts % (Manual) Lymphocytes % (Manual) Monocytes % (Manual) Nucleated RBC % Seg Neutrophils # Seg Neutrophils # Man Lymphocytes # (Manual) Monocytes # (Manual) PT INR D-Dimer Heparin Anti-Xa Level POC ABG pH ABG pH POC ABG pCO2 POC ABG pO2 ABG pO2 ABG HCO3 ABG O2 Saturation ABG Base Excess ABG Hemoglobin Oxyhemoglobin Sodium 136 L Potassium Chloride 97.0 L Carbon Dioxide BUN 58 H Creatinine 7.3 H Glucose POC Glucose 106 H Lactic Acid Calcium 7.5 L Ionized Calcium Phosphorus 5.80 H D Magnesium Iron TIBC Ferritin Total Bilirubin Direct Bilirubin AST ALT Alkaline Phosphatase Total Creatine Kinase CK-MB (CK-2) Troponin T C-Reactive Protein Total Protein Albumin Triglycerides LDL Cholesterol Direct HDL Cholesterol Free T4 PTH Intact Urine WBC (Auto) Urine Creatinine Salicylates Acetaminophen Crossmatch 04/03/19 04/04/19 04/04/19 23:43 04:47 04:47 WBC RBC 2.72 L Hgb 8.3 L Hct 24.7 L MCV MCHC RDW 15.6 H Plt Count Lymph % (Auto) [place] % (Auto) 10.1 H Lymph # 0.8 L [place] # Seg Neutrophils % 71.4 H Seg Neuts % (Manual) Lymphocytes % (Manual) Monocytes % (Manual) Nucleated RBC % Seg Neutrophils # Seg Neutrophils # Man Lymphocytes # (Manual) Monocytes # (Manual) PT INR D-Dimer Heparin Anti-Xa Level POC ABG pH ABG pH POC ABG pCO2 POC ABG pO2 ABG pO2 123.8 H ABG HCO3 ABG O2 Saturation ABG Base Excess -3.0 L ABG Hemoglobin 7.9 L Oxyhemoglobin Sodium 134 L Potassium Chloride 97.9 L Carbon Dioxide BUN 64 H Creatinine 8.1 H Glucose POC Glucose Lactic Acid Calcium 7.2 L Ionized Calcium Phosphorus Magnesium Iron TIBC Ferritin Total Bilirubin Direct Bilirubin AST ALT Alkaline Phosphatase Total Creatine Kinase CK-MB (CK-2) Troponin T C-Reactive Protein Total Protein Albumin Triglycerides LDL Cholesterol Direct HDL Cholesterol Free T4 PTH Intact Urine WBC (Auto) Urine Creatinine Salicylates Acetaminophen Crossmatch 04/04/19 04/04/19 04/04/19 06:07 13:40 18:18 WBC RBC Hgb Hct MCV MCHC RDW Plt Count Lymph % (Auto) [place] % (Auto) Lymph # [place] # Seg Neutrophils % Seg Neuts % (Manual) Lymphocytes % (Manual) Monocytes % (Manual) Nucleated RBC % Seg Neutrophils # Seg Neutrophils # Man Lymphocytes # (Manual) Monocytes # (Manual) PT INR D-Dimer Heparin Anti-Xa Level POC ABG pH ABG pH POC ABG pCO2 POC ABG pO2 ABG pO2 95.9 H ABG HCO3 ABG O2 Saturation ABG Base Excess -3.0 L ABG Hemoglobin 8.5 L Oxyhemoglobin Sodium Potassium Chloride Carbon Dioxide BUN Creatinine Glucose POC Glucose 107 H 107 H Lactic Acid Calcium Ionized Calcium Phosphorus Magnesium Iron TIBC Ferritin Total Bilirubin Direct Bilirubin AST ALT Alkaline Phosphatase Total Creatine Kinase CK-MB (CK-2) Troponin T C-Reactive Protein Total Protein Albumin Triglycerides LDL Cholesterol Direct HDL Cholesterol Free T4 PTH Intact Urine WBC (Auto) Urine Creatinine Salicylates Acetaminophen Crossmatch 04/04/19 04/05/19 04/05/19 21:22 04:09 04:09 WBC RBC 2.76 L Hgb 8.4 L Hct 25.4 L MCV MCHC RDW 15.8 H Plt Count 133 L Lymph % (Auto) [place] % (Auto) 9.6 H Lymph # 0.7 L [place] # Seg Neutrophils % 72.6 H Seg Neuts % (Manual) Lymphocytes % (Manual) Monocytes % (Manual) Nucleated RBC % Seg Neutrophils # Seg Neutrophils # Man Lymphocytes # (Manual) Monocytes # (Manual) PT INR D-Dimer Heparin Anti-Xa Level POC ABG pH ABG pH POC ABG pCO2 47.2 H POC ABG pO2 137 H ABG pO2 ABG HCO3 ABG O2 Saturation ABG Base Excess ABG Hemoglobin Oxyhemoglobin Sodium 136 L Potassium Chloride Carbon Dioxide BUN 46 H Creatinine 6.7 H Glucose POC Glucose Lactic Acid Calcium 7.7 L Ionized Calcium Phosphorus Magnesium Iron TIBC Ferritin Total Bilirubin Direct Bilirubin AST ALT Alkaline Phosphatase Total Creatine Kinase CK-MB (CK-2) Troponin T C-Reactive Protein Total Protein Albumin Triglycerides LDL Cholesterol Direct HDL Cholesterol Free T4 PTH Intact Urine WBC (Auto) Urine Creatinine Salicylates Acetaminophen Crossmatch 04/05/19 04/05/19 04/05/19 05:28 06:14 16:50 WBC RBC Hgb Hct MCV MCHC RDW Plt Count Lymph % (Auto) [place] % (Auto) Lymph # [place] # Seg Neutrophils % Seg Neuts % (Manual) Lymphocytes % (Manual) Monocytes % (Manual) Nucleated RBC % Seg Neutrophils # Seg Neutrophils # Man Lymphocytes # (Manual) Monocytes # (Manual) PT INR D-Dimer Heparin Anti-Xa Level POC ABG pH ABG pH POC ABG pCO2 POC ABG pO2 67 L ABG pO2 ABG HCO3 ABG O2 Saturation ABG Base Excess ABG Hemoglobin Oxyhemoglobin Sodium Potassium Chloride Carbon Dioxide BUN Creatinine Glucose POC Glucose 108 H Lactic Acid Calcium Ionized Calcium Phosphorus Magnesium Iron TIBC Ferritin Total Bilirubin Direct Bilirubin AST ALT Alkaline Phosphatase Total Creatine Kinase CK-MB (CK-2) Troponin T C-Reactive Protein Total Protein Albumin Triglycerides LDL Cholesterol Direct HDL Cholesterol Free T4 PTH Intact Urine WBC (Auto) 40.0 H Urine Creatinine Salicylates Acetaminophen Crossmatch 04/05/19 04/06/19 04/06/19 17:22 00:13 04:44 WBC RBC 2.48 L Hgb 7.5 L Hct 22.9 L MCV MCHC RDW 16.0 H Plt Count 107 L Lymph % (Auto) [place] % (Auto) 10.7 H Lymph # 1.0 L [place] # Seg Neutrophils % Seg Neuts % (Manual) Lymphocytes % (Manual) Monocytes % (Manual) Nucleated RBC % Seg Neutrophils # Seg Neutrophils # Man Lymphocytes # (Manual) Monocytes # (Manual) PT INR D-Dimer Heparin Anti-Xa Level POC ABG pH ABG pH POC ABG pCO2 POC ABG pO2 ABG pO2 ABG HCO3 ABG O2 Saturation ABG Base Excess ABG Hemoglobin Oxyhemoglobin Sodium Potassium Chloride Carbon Dioxide BUN Creatinine Glucose POC Glucose 118 H 138 H Lactic Acid Calcium Ionized Calcium Phosphorus Magnesium Iron TIBC Ferritin Total Bilirubin Direct Bilirubin AST ALT Alkaline Phosphatase Total Creatine Kinase CK-MB (CK-2) Troponin T C-Reactive Protein Total Protein Albumin Triglycerides LDL Cholesterol Direct HDL Cholesterol Free T4 PTH Intact Urine WBC (Auto) Urine Creatinine Salicylates Acetaminophen Crossmatch 04/06/19 04/06/19 04/06/19 04:44 05:20 05:23 WBC RBC Hgb Hct MCV MCHC RDW Plt Count Lymph % (Auto) [place] % (Auto) Lymph # [place] # Seg Neutrophils % Seg Neuts % (Manual) Lymphocytes % (Manual) Monocytes % (Manual) Nucleated RBC % Seg Neutrophils # Seg Neutrophils # Man Lymphocytes # (Manual) Monocytes # (Manual) PT INR D-Dimer Heparin Anti-Xa Level POC ABG pH ABG pH POC ABG pCO2 POC ABG pO2 ABG pO2 104.0 H ABG HCO3 ABG O2 Saturation ABG Base Excess -2.1 L ABG Hemoglobin 7.3 L Oxyhemoglobin Sodium Potassium Chloride Carbon Dioxide BUN 64 H Creatinine 8.2 H Glucose 103 H POC Glucose 118 H Lactic Acid Calcium 7.3 L Ionized Calcium Phosphorus Magnesium Iron TIBC Ferritin Total Bilirubin Direct Bilirubin AST ALT Alkaline Phosphatase Total Creatine Kinase CK-MB (CK-2) Troponin T C-Reactive Protein Total Protein Albumin Triglycerides LDL Cholesterol Direct HDL Cholesterol Free T4 PTH Intact Urine WBC (Auto) Urine Creatinine Salicylates Acetaminophen Crossmatch 04/06/19 04/07/19 04/07/19 12:02 05:40 05:40 WBC RBC 2.59 L Hgb 7.9 L Hct 23.8 L MCV MCHC RDW 15.8 H Plt Count 89 L Lymph % (Auto) [place] % (Auto) 10.3 H Lymph # 1.1 L [place] # Seg Neutrophils % Seg Neuts % (Manual) Lymphocytes % (Manual) Monocytes % (Manual) Nucleated RBC % Seg Neutrophils # Seg Neutrophils # Man Lymphocytes # (Manual) Monocytes # (Manual) PT INR D-Dimer Heparin Anti-Xa Level POC ABG pH ABG pH POC ABG pCO2 POC ABG pO2 ABG pO2 ABG HCO3 ABG O2 Saturation ABG Base Excess ABG Hemoglobin Oxyhemoglobin Sodium 136 L Potassium 3.5 L Chloride Carbon Dioxide BUN 46 H Creatinine 6.2 H Glucose POC Glucose 108 H Lactic Acid Calcium 7.9 L Ionized Calcium Phosphorus Magnesium Iron TIBC Ferritin Total Bilirubin Direct Bilirubin AST ALT Alkaline Phosphatase Total Creatine Kinase CK-MB (CK-2) Troponin T C-Reactive Protein Total Protein Albumin Triglycerides LDL Cholesterol Direct HDL Cholesterol Free T4 PTH Intact Urine WBC (Auto) Urine Creatinine Salicylates Acetaminophen Crossmatch 04/07/19 04/09/19 04/09/19 12:57 04:28 04:28 WBC RBC 2.85 L Hgb 8.7 L Hct 26.2 L MCV MCHC RDW 15.6 H Plt Count Lymph % (Auto) [place] % (Auto) 10.4 H Lymph # 1.0 L [place] # Seg Neutrophils % 73.3 H Seg Neuts % (Manual) Lymphocytes % (Manual) Monocytes % (Manual) Nucleated RBC % Seg Neutrophils # Seg Neutrophils # Man Lymphocytes # (Manual) Monocytes # (Manual) PT INR D-Dimer Heparin Anti-Xa Level POC ABG pH ABG pH POC ABG pCO2 POC ABG pO2 107 H ABG pO2 ABG HCO3 ABG O2 Saturation ABG Base Excess ABG Hemoglobin Oxyhemoglobin Sodium Potassium 3.5 L Chloride 97.8 L Carbon Dioxide BUN 62 H Creatinine 8.1 H Glucose POC Glucose Lactic Acid Calcium 8.2 L Ionized Calcium Phosphorus 5.10 H Magnesium Iron TIBC Ferritin Total Bilirubin Direct Bilirubin AST ALT Alkaline Phosphatase Total Creatine Kinase CK-MB (CK-2) Troponin T C-Reactive Protein Total Protein Albumin Triglycerides LDL Cholesterol Direct HDL Cholesterol Free T4 PTH Intact Urine WBC (Auto) Urine Creatinine Salicylates Acetaminophen Crossmatch 04/10/19 04/11/19 04/11/19 18:15 00:25 04:16 WBC 11.5 H RBC 2.91 L Hgb 8.9 L Hct 27.6 L MCV 95 H MCHC RDW 17.5 H Plt Count Lymph % (Auto) [place] % (Auto) Lymph # [place] # Seg Neutrophils % Seg Neuts % (Manual) 71.0 H Lymphocytes % (Manual) Monocytes % (Manual) 8.0 H Nucleated RBC % Seg Neutrophils # Seg Neutrophils # Man 8.2 H Lymphocytes # (Manual) Monocytes # (Manual) 0.9 H PT INR D-Dimer Heparin Anti-Xa Level POC ABG pH ABG pH POC ABG pCO2 POC ABG pO2 ABG pO2 ABG HCO3 ABG O2 Saturation ABG Base Excess ABG Hemoglobin Oxyhemoglobin Sodium Potassium Chloride Carbon Dioxide BUN Creatinine Glucose POC Glucose 109 H 114 H Lactic Acid Calcium Ionized Calcium Phosphorus Magnesium Iron TIBC Ferritin Total Bilirubin Direct Bilirubin AST ALT Alkaline Phosphatase Total Creatine Kinase CK-MB (CK-2) Troponin T C-Reactive Protein Total Protein Albumin Triglycerides LDL Cholesterol Direct HDL Cholesterol Free T4 PTH Intact Urine WBC (Auto) Urine Creatinine Salicylates Acetaminophen Crossmatch 04/11/19 04/11/19 04/11/19 06:47 09:21 12:15 WBC RBC Hgb Hct MCV MCHC RDW Plt Count Lymph % (Auto) [place] % (Auto) Lymph # [place] # Seg Neutrophils % Seg Neuts % (Manual) Lymphocytes % (Manual) Monocytes % (Manual) Nucleated RBC % Seg Neutrophils # Seg Neutrophils # Man Lymphocytes # (Manual) Monocytes # (Manual) PT INR D-Dimer Heparin Anti-Xa Level POC ABG pH ABG pH POC ABG pCO2 POC ABG pO2 ABG pO2 ABG HCO3 ABG O2 Saturation ABG Base Excess ABG Hemoglobin Oxyhemoglobin Sodium Potassium 3.5 L Chloride Carbon Dioxide BUN 45 H Creatinine 6.0 H Glucose 113 H POC Glucose 106 H 109 H Lactic Acid Calcium Ionized Calcium Phosphorus Magnesium Iron TIBC Ferritin Total Bilirubin Direct Bilirubin AST ALT Alkaline Phosphatase Total Creatine Kinase CK-MB (CK-2) Troponin T C-Reactive Protein Total Protein Albumin Triglycerides LDL Cholesterol Direct HDL Cholesterol Free T4 PTH Intact Urine WBC (Auto) Urine Creatinine Salicylates Acetaminophen Crossmatch 04/11/19 04/12/19 04/12/19 18:42 12:13 23:52 WBC RBC Hgb Hct MCV MCHC RDW Plt Count Lymph % (Auto) [place] % (Auto) Lymph # [place] # Seg Neutrophils % Seg Neuts % (Manual) Lymphocytes % (Manual) Monocytes % (Manual) Nucleated RBC % Seg Neutrophils # Seg Neutrophils # Man Lymphocytes # (Manual) Monocytes # (Manual) PT INR D-Dimer Heparin Anti-Xa Level POC ABG pH ABG pH POC ABG pCO2 POC ABG pO2 ABG pO2 ABG HCO3 ABG O2 Saturation ABG Base Excess ABG Hemoglobin Oxyhemoglobin Sodium Potassium Chloride Carbon Dioxide BUN Creatinine Glucose POC Glucose 107 H 115 H 124 H Lactic Acid Calcium Ionized Calcium Phosphorus Magnesium Iron TIBC Ferritin Total Bilirubin Direct Bilirubin AST ALT Alkaline Phosphatase Total Creatine Kinase CK-MB (CK-2) Troponin T C-Reactive Protein Total Protein Albumin Triglycerides LDL Cholesterol Direct HDL Cholesterol Free T4 PTH Intact Urine WBC (Auto) Urine Creatinine Salicylates Acetaminophen Crossmatch 04/13/19 04/13/19 04/13/19 05:00 05:00 05:47 WBC 11.7 H RBC 2.97 L Hgb 8.8 L Hct 27.3 L MCV MCHC RDW 16.1 H Plt Count Lymph % (Auto) 9.5 L [place] % (Auto) 9.9 H Lymph # 1.1 L [place] # 1.2 H Seg Neutrophils % 78.6 H Seg Neuts % (Manual) Lymphocytes % (Manual) Monocytes % (Manual) Nucleated RBC % Seg Neutrophils # 9.2 H Seg Neutrophils # Man Lymphocytes # (Manual) Monocytes # (Manual) PT INR D-Dimer Heparin Anti-Xa Level POC ABG pH ABG pH POC ABG pCO2 POC ABG pO2 ABG pO2 ABG HCO3 ABG O2 Saturation ABG Base Excess ABG Hemoglobin Oxyhemoglobin Sodium Potassium 3.5 L Chloride Carbon Dioxide BUN 42 H Creatinine 4.6 H Glucose 106 H POC Glucose 107 H Lactic Acid Calcium 10.6 H D Ionized Calcium Phosphorus 5.90 H Magnesium Iron TIBC Ferritin Total Bilirubin Direct Bilirubin AST ALT Alkaline Phosphatase Total Creatine Kinase CK-MB (CK-2) Troponin T C-Reactive Protein Total Protein 5.8 L Albumin 2.5 L Triglycerides LDL Cholesterol Direct HDL Cholesterol Free T4 PTH Intact Urine WBC (Auto) Urine Creatinine Salicylates Acetaminophen Crossmatch 04/13/19 04/14/19 04/14/19 17:32 00:00 03:55 WBC RBC Hgb Hct MCV MCHC RDW Plt Count Lymph % (Auto) [place] % (Auto) Lymph # [place] # Seg Neutrophils % Seg Neuts % (Manual) Lymphocytes % (Manual) Monocytes % (Manual) Nucleated RBC % Seg Neutrophils # Seg Neutrophils # Man Lymphocytes # (Manual) Monocytes # (Manual) PT INR D-Dimer Heparin Anti-Xa Level POC ABG pH ABG pH POC ABG pCO2 POC ABG pO2 ABG pO2 ABG HCO3 ABG O2 Saturation ABG Base Excess ABG Hemoglobin Oxyhemoglobin Sodium Potassium 3.0 L Chloride Carbon Dioxide BUN 30 H Creatinine 3.1 H Glucose POC Glucose 112 H 120 H Lactic Acid Calcium 10.8 H Ionized Calcium Phosphorus Magnesium Iron TIBC Ferritin Total Bilirubin Direct Bilirubin AST ALT Alkaline Phosphatase Total Creatine Kinase CK-MB (CK-2) Troponin T C-Reactive Protein Total Protein Albumin Triglycerides LDL Cholesterol Direct HDL Cholesterol Free T4 PTH Intact Urine WBC (Auto) Urine Creatinine Salicylates Acetaminophen Crossmatch 04/14/19 04/14/19 04/15/19 11:56 23:28 05:11 WBC 13.0 H RBC 2.93 L Hgb 8.6 L Hct 26.5 L MCV MCHC RDW 16.5 H Plt Count Lymph % (Auto) 12.2 L [place] % (Auto) 9.1 H Lymph # [place] # 1.2 H Seg Neutrophils % 77.6 H Seg Neuts % (Manual) Lymphocytes % (Manual) Monocytes % (Manual) Nucleated RBC % Seg Neutrophils # 10.1 H Seg Neutrophils # Man Lymphocytes # (Manual) Monocytes # (Manual) PT INR D-Dimer Heparin Anti-Xa Level POC ABG pH ABG pH POC ABG pCO2 POC ABG pO2 ABG pO2 ABG HCO3 ABG O2 Saturation ABG Base Excess ABG Hemoglobin Oxyhemoglobin Sodium Potassium Chloride Carbon Dioxide BUN Creatinine Glucose POC Glucose 109 H 112 H Lactic Acid Calcium Ionized Calcium Phosphorus Magnesium Iron TIBC Ferritin Total Bilirubin Direct Bilirubin AST ALT Alkaline Phosphatase Total Creatine Kinase CK-MB (CK-2) Troponin T C-Reactive Protein Total Protein Albumin Triglycerides LDL Cholesterol Direct HDL Cholesterol Free T4 PTH Intact Urine WBC (Auto) Urine Creatinine Salicylates Acetaminophen Crossmatch 04/15/19 04/15/19 04/15/19 05:11 05:31 18:03 WBC RBC Hgb Hct MCV MCHC RDW Plt Count Lymph % (Auto) [place] % (Auto) Lymph # [place] # Seg Neutrophils % Seg Neuts % (Manual) Lymphocytes % (Manual) Monocytes % (Manual) Nucleated RBC % Seg Neutrophils # Seg Neutrophils # Man Lymphocytes # (Manual) Monocytes # (Manual) PT INR D-Dimer Heparin Anti-Xa Level POC ABG pH ABG pH POC ABG pCO2 POC ABG pO2 ABG pO2 ABG HCO3 ABG O2 Saturation ABG Base Excess ABG Hemoglobin Oxyhemoglobin Sodium Potassium 3.2 L Chloride Carbon Dioxide BUN 44 H Creatinine 3.6 H Glucose 106 H POC Glucose 110 H 121 H Lactic Acid Calcium 12.0 H Ionized Calcium Phosphorus 5.00 H Magnesium Iron TIBC Ferritin Total Bilirubin Direct Bilirubin AST ALT Alkaline Phosphatase Total Creatine Kinase CK-MB (CK-2) Troponin T C-Reactive Protein Total Protein Albumin Triglycerides LDL Cholesterol Direct HDL Cholesterol Free T4 PTH Intact Urine WBC (Auto) Urine Creatinine Salicylates Acetaminophen Crossmatch 04/16/19 04/16/19 04/17/19 05:07 05:07 04:15 WBC 12.6 H RBC 3.12 L Hgb 9.0 L Hct 28.2 L MCV MCHC RDW 16.6 H Plt Count Lymph % (Auto) 10.3 L [place] % (Auto) 9.8 H Lymph # [place] # 1.2 H Seg Neutrophils % 78.2 H Seg Neuts % (Manual) Lymphocytes % (Manual) Monocytes % (Manual) Nucleated RBC % Seg Neutrophils # 9.9 H Seg Neutrophils # Man Lymphocytes # (Manual) Monocytes # (Manual) PT INR D-Dimer Heparin Anti-Xa Level POC ABG pH ABG pH POC ABG pCO2 POC ABG pO2 ABG pO2 ABG HCO3 ABG O2 Saturation ABG Base Excess ABG Hemoglobin Oxyhemoglobin Sodium 147 H 150 H Potassium 3.5 L 3.1 L Chloride Carbon Dioxide 32 H BUN 54 H 65 H Creatinine 3.8 H 4.0 H Glucose 102 H 107 H POC Glucose Lactic Acid Calcium 11.7 H 12.0 H Ionized Calcium Phosphorus 5.40 H Magnesium Iron TIBC Ferritin Total Bilirubin Direct Bilirubin AST ALT Alkaline Phosphatase Total Creatine Kinase CK-MB (CK-2) Troponin T C-Reactive Protein 7.10 H Total Protein Albumin Triglycerides LDL Cholesterol Direct HDL Cholesterol Free T4 PTH Intact Urine WBC (Auto) Urine Creatinine Salicylates Acetaminophen Crossmatch 04/17/19 04/17/19 04/17/19 04:15 06:05 12:49 WBC 15.8 H RBC 3.32 L Hgb 9.5 L Hct 29.9 L MCV MCHC RDW 16.9 H Plt Count Lymph % (Auto) 12.6 L [place] % (Auto) 11.1 H Lymph # [place] # 1.7 H Seg Neutrophils % 74.7 H Seg Neuts % (Manual) Lymphocytes % (Manual) Monocytes % (Manual) Nucleated RBC % Seg Neutrophils # 11.8 H Seg Neutrophils # Man Lymphocytes # (Manual) Monocytes # (Manual) PT INR D-Dimer Heparin Anti-Xa Level POC ABG pH ABG pH POC ABG pCO2 POC ABG pO2 ABG pO2 ABG HCO3 ABG O2 Saturation ABG Base Excess ABG Hemoglobin Oxyhemoglobin Sodium Potassium Chloride Carbon Dioxide BUN Creatinine Glucose POC Glucose 111 H 108 H Lactic Acid Calcium Ionized Calcium Phosphorus Magnesium Iron TIBC Ferritin Total Bilirubin Direct Bilirubin AST ALT Alkaline Phosphatase Total Creatine Kinase CK-MB (CK-2) Troponin T C-Reactive Protein Total Protein Albumin Triglycerides LDL Cholesterol Direct HDL Cholesterol Free T4 PTH Intact Urine WBC (Auto) Urine Creatinine Salicylates Acetaminophen Crossmatch 04/18/19 04/18/19 04/18/19 00:23 04:41 04:41 WBC 19.4 H RBC 3.03 L Hgb 8.6 L Hct 27.5 L MCV MCHC 31 L RDW 16.9 H Plt Count Lymph % (Auto) [place] % (Auto) Lymph # [place] # Seg Neutrophils % Seg Neuts % (Manual) Lymphocytes % (Manual) Monocytes % (Manual) Nucleated RBC % Seg Neutrophils # Seg Neutrophils # Man Lymphocytes # (Manual) Monocytes # (Manual) PT INR D-Dimer Heparin Anti-Xa Level POC ABG pH ABG pH POC ABG pCO2 POC ABG pO2 ABG pO2 ABG HCO3 ABG O2 Saturation ABG Base Excess ABG Hemoglobin Oxyhemoglobin Sodium 152 H Potassium 3.0 L Chloride Carbon Dioxide BUN 80 H Creatinine 4.3 H Glucose 103 H POC Glucose 115 H Lactic Acid Calcium 11.4 H Ionized Calcium Phosphorus Magnesium Iron TIBC Ferritin Total Bilirubin Direct Bilirubin AST ALT Alkaline Phosphatase Total Creatine Kinase CK-MB (CK-2) Troponin T C-Reactive Protein Total Protein Albumin Triglycerides LDL Cholesterol Direct HDL Cholesterol Free T4 PTH Intact Urine WBC (Auto) Urine Creatinine Salicylates Acetaminophen Crossmatch 04/18/19 04/18/19 04/18/19 06:17 12:16 18:10 WBC RBC Hgb Hct MCV MCHC RDW Plt Count Lymph % (Auto) [place] % (Auto) Lymph # [place] # Seg Neutrophils % Seg Neuts % (Manual) Lymphocytes % (Manual) Monocytes % (Manual) Nucleated RBC % Seg Neutrophils # Seg Neutrophils # Man Lymphocytes # (Manual) Monocytes # (Manual) PT INR D-Dimer Heparin Anti-Xa Level POC ABG pH ABG pH POC ABG pCO2 POC ABG pO2 ABG pO2 ABG HCO3 ABG O2 Saturation ABG Base Excess ABG Hemoglobin Oxyhemoglobin Sodium Potassium Chloride Carbon Dioxide BUN Creatinine Glucose POC Glucose 124 H 119 H 111 H Lactic Acid Calcium Ionized Calcium Phosphorus Magnesium Iron TIBC Ferritin Total Bilirubin Direct Bilirubin AST ALT Alkaline Phosphatase Total Creatine Kinase CK-MB (CK-2) Troponin T C-Reactive Protein Total Protein Albumin Triglycerides LDL Cholesterol Direct HDL Cholesterol Free T4 PTH Intact Urine WBC (Auto) Urine Creatinine Salicylates Acetaminophen Crossmatch 04/19/19 04/19/19 04/20/19 03:49 05:27 09:09 WBC RBC Hgb Hct MCV MCHC RDW Plt Count Lymph % (Auto) [place] % (Auto) Lymph # [place] # Seg Neutrophils % Seg Neuts % (Manual) Lymphocytes % (Manual) Monocytes % (Manual) Nucleated RBC % Seg Neutrophils # Seg Neutrophils # Man Lymphocytes # (Manual) Monocytes # (Manual) PT INR D-Dimer Heparin Anti-Xa Level POC ABG pH ABG pH POC ABG pCO2 POC ABG pO2 ABG pO2 ABG HCO3 ABG O2 Saturation ABG Base Excess ABG Hemoglobin Oxyhemoglobin Sodium 147 H 150 H Potassium 3.3 L Chloride 108.9 H Carbon Dioxide BUN 45 H 70 H Creatinine 2.9 H 4.1 H Glucose 105 H POC Glucose 124 H Lactic Acid Calcium 10.6 H 11.6 H Ionized Calcium Phosphorus Magnesium Iron TIBC Ferritin Total Bilirubin Direct Bilirubin AST ALT Alkaline Phosphatase Total Creatine Kinase CK-MB (CK-2) Troponin T C-Reactive Protein Total Protein Albumin Triglycerides LDL Cholesterol Direct HDL Cholesterol Free T4 PTH Intact Urine WBC (Auto) Urine Creatinine Salicylates Acetaminophen Crossmatch 04/20/19 04/20/19 04/21/19 12:29 18:45 01:34 WBC RBC Hgb Hct MCV MCHC RDW Plt Count Lymph % (Auto) [place] % (Auto) Lymph # [place] # Seg Neutrophils % Seg Neuts % (Manual) Lymphocytes % (Manual) Monocytes % (Manual) Nucleated RBC % Seg Neutrophils # Seg Neutrophils # Man Lymphocytes # (Manual) Monocytes # (Manual) PT INR D-Dimer Heparin Anti-Xa Level POC ABG pH ABG pH POC ABG pCO2 POC ABG pO2 ABG pO2 ABG HCO3 ABG O2 Saturation ABG Base Excess ABG Hemoglobin Oxyhemoglobin Sodium Potassium Chloride Carbon Dioxide BUN 40 H Creatinine 2.6 H Glucose 104 H POC Glucose 131 H 134 H Lactic Acid Calcium 11.0 H Ionized Calcium Phosphorus Magnesium Iron TIBC Ferritin Total Bilirubin Direct Bilirubin AST ALT Alkaline Phosphatase Total Creatine Kinase CK-MB (CK-2) Troponin T C-Reactive Protein Total Protein Albumin Triglycerides LDL Cholesterol Direct HDL Cholesterol Free T4 PTH Intact Urine WBC (Auto) Urine Creatinine Salicylates Acetaminophen Crossmatch 04/21/19 04/22/19 04/22/19 04:22 04:24 04:24 WBC 14.2 H 14.3 H RBC 3.02 L 3.57 L Hgb 8.7 L 10.1 L Hct 27.2 L 32.1 L MCV MCHC RDW 16.7 H 17.2 H Plt Count Lymph % (Auto) [place] % (Auto) Lymph # [place] # Seg Neutrophils % Seg Neuts % (Manual) Lymphocytes % (Manual) Monocytes % (Manual) Nucleated RBC % Seg Neutrophils # Seg Neutrophils # Man Lymphocytes # (Manual) Monocytes # (Manual) PT INR D-Dimer Heparin Anti-Xa Level POC ABG pH ABG pH POC ABG pCO2 POC ABG pO2 ABG pO2 ABG HCO3 ABG O2 Saturation ABG Base Excess ABG Hemoglobin Oxyhemoglobin Sodium Potassium Chloride Carbon Dioxide BUN 54 H Creatinine 3.5 H Glucose POC Glucose Lactic Acid Calcium 11.4 H Ionized Calcium Phosphorus Magnesium Iron TIBC Ferritin Total Bilirubin Direct Bilirubin AST ALT Alkaline Phosphatase Total Creatine Kinase CK-MB (CK-2) Troponin T C-Reactive Protein Total Protein Albumin Triglycerides LDL Cholesterol Direct HDL Cholesterol Free T4 PTH Intact Urine WBC (Auto) Urine Creatinine Salicylates Acetaminophen Crossmatch 04/22/19 04/22/19 04/22/19 06:37 11:57 18:33 WBC RBC Hgb Hct MCV MCHC RDW Plt Count Lymph % (Auto) [place] % (Auto) Lymph # [place] # Seg Neutrophils % Seg Neuts % (Manual) Lymphocytes % (Manual) Monocytes % (Manual) Nucleated RBC % Seg Neutrophils # Seg Neutrophils # Man Lymphocytes # (Manual) Monocytes # (Manual) PT INR D-Dimer Heparin Anti-Xa Level POC ABG pH ABG pH POC ABG pCO2 POC ABG pO2 ABG pO2 ABG HCO3 ABG O2 Saturation ABG Base Excess ABG Hemoglobin Oxyhemoglobin Sodium Potassium Chloride Carbon Dioxide BUN Creatinine Glucose POC Glucose 113 H 110 H 120 H Lactic Acid Calcium Ionized Calcium Phosphorus Magnesium Iron TIBC Ferritin Total Bilirubin Direct Bilirubin AST ALT Alkaline Phosphatase Total Creatine Kinase CK-MB (CK-2) Troponin T C-Reactive Protein Total Protein Albumin Triglycerides LDL Cholesterol Direct HDL Cholesterol Free T4 PTH Intact Urine WBC (Auto) Urine Creatinine Salicylates Acetaminophen Crossmatch 04/23/19 04/23/19 04/23/19 04:06 04:06 18:06 WBC 16.1 H RBC 3.36 L Hgb 9.8 L Hct 30.8 L MCV MCHC RDW 17.7 H Plt Count Lymph % (Auto) 9.9 L [place] % (Auto) Lymph # [place] # Seg Neutrophils % 84.2 H Seg Neuts % (Manual) Lymphocytes % (Manual) Monocytes % (Manual) Nucleated RBC % Seg Neutrophils # 13.6 H Seg Neutrophils # Man Lymphocytes # (Manual) Monocytes # (Manual) PT INR D-Dimer Heparin Anti-Xa Level POC ABG pH ABG pH POC ABG pCO2 POC ABG pO2 ABG pO2 ABG HCO3 ABG O2 Saturation ABG Base Excess ABG Hemoglobin Oxyhemoglobin Sodium Potassium Chloride Carbon Dioxide BUN 59 H Creatinine 3.8 H Glucose POC Glucose 124 H Lactic Acid Calcium 12.3 H* Ionized Calcium Phosphorus 5.70 H Magnesium Iron TIBC Ferritin Total Bilirubin Direct Bilirubin AST ALT Alkaline Phosphatase Total Creatine Kinase CK-MB (CK-2) Troponin T C-Reactive Protein Total Protein Albumin 3.2 L Triglycerides LDL Cholesterol Direct HDL Cholesterol Free T4 PTH Intact Urine WBC (Auto) Urine Creatinine Salicylates Acetaminophen Crossmatch 04/24/19 04/24/19 04/24/19 04:12 04:12 06:21 WBC 18.0 H RBC 3.46 L Hgb 9.8 L Hct 31.2 L MCV MCHC 31 L RDW 17.5 H Plt Count Lymph % (Auto) 11.1 L [place] % (Auto) Lymph # [place] # Seg Neutrophils % 81.9 H Seg Neuts % (Manual) Lymphocytes % (Manual) Monocytes % (Manual) Nucleated RBC % Seg Neutrophils # 14.7 H Seg Neutrophils # Man Lymphocytes # (Manual) Monocytes # (Manual) PT INR D-Dimer Heparin Anti-Xa Level POC ABG pH ABG pH POC ABG pCO2 POC ABG pO2 ABG pO2 ABG HCO3 ABG O2 Saturation ABG Base Excess ABG Hemoglobin Oxyhemoglobin Sodium Potassium Chloride Carbon Dioxide BUN 56 H Creatinine 3.6 H Glucose POC Glucose 132 H Lactic Acid Calcium 12.6 H* Ionized Calcium Phosphorus Magnesium Iron TIBC Ferritin Total Bilirubin Direct Bilirubin AST ALT Alkaline Phosphatase Total Creatine Kinase CK-MB (CK-2) Troponin T C-Reactive Protein Total Protein Albumin 3.2 L Triglycerides LDL Cholesterol Direct HDL Cholesterol Free T4 PTH Intact Urine WBC (Auto) Urine Creatinine Salicylates Acetaminophen Crossmatch 04/24/19 11:47 WBC RBC Hgb Hct MCV MCHC RDW Plt Count Lymph % (Auto) [place] % (Auto) Lymph # [place] # Seg Neutrophils % Seg Neuts % (Manual) Lymphocytes % (Manual) Monocytes % (Manual) Nucleated RBC % Seg Neutrophils # Seg Neutrophils # Man Lymphocytes # (Manual) Monocytes # (Manual) PT INR D-Dimer Heparin Anti-Xa Level POC ABG pH ABG pH POC ABG pCO2 POC ABG pO2 ABG pO2 ABG HCO3 ABG O2 Saturation ABG Base Excess ABG Hemoglobin Oxyhemoglobin Sodium Potassium Chloride Carbon Dioxide BUN Creatinine Glucose POC Glucose 106 H Lactic Acid Calcium Ionized Calcium Phosphorus Magnesium Iron TIBC Ferritin Total Bilirubin Direct Bilirubin AST ALT Alkaline Phosphatase Total Creatine Kinase CK-MB (CK-2) Troponin T C-Reactive Protein Total Protein Albumin Triglycerides LDL Cholesterol Direct HDL Cholesterol Free T4 PTH Intact Urine WBC (Auto) Urine Creatinine Salicylates Acetaminophen Crossmatch Allied health notes reviewed: nursing
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
[2019-04-25] MEDS: LINEZOLID 600 MG/300 ML BAG IV SCH ×2 (05:05→18:13)
[2019-04-25 06:35] LABS: Basophils # (Auto) 0.1 K/mm3 (0.0-0.1); Basophils % (Auto) 0.5 % (0.0-1.8); Eosinophils # (Auto) 0.3 K/mm3 (0.0-0.4); Eosinophils % (Auto) 1.5 % (0.0-4.3); Hematocrit 26.5 % (35.5-45.6); Hemoglobin 8.3 gm/dl (11.8-15.2); Lymphocytes # (Auto) 1.8 K/mm3 (1.2-5.4); Lymphocytes % (Auto) 10.1 % (13.4-35.0); Mean Corpuscular HGB Conc 31 % (32-34); Mean Corpuscular Volume 89 fl (84-94); Monocytes # (Auto) 0.9 K/mm3 (0.0-0.8); Monocytes % (Auto) 5.1 % (0.0-7.3); Platelet Count 385 K/mm3 (140-440); Red Blood Count 2.98 M/mm3 (3.65-5.03); Red Cell Distribution Width 17.9 % (13.2-15.2)
[2019-04-25 07:14] LABS: Calcium 11.4 mg/dL (8.4-10.2)
--- NOTE | 2019-04-25 07:58 | Hem/Onc Progress Note ---
Assessment and Plan 1. h/o Anemia. The patient has history of bleeding. 2. rt Internal jugular partial thrombosis. The patient was started on heparin. This has been held due to bleeding 3. Gastrointestinal bleed. 4. h/o Elevated creatinine kinase. 5. h/o Low calcium. 6. h/o Thrombocytopenia. 7. h/o Renal failure. 8. h/o Intubation. 9. s/p Transfusion support. 10. Leukocytosis. At this time, supportive care may help the patient. The patient's platelet was low at admission. Urine toxicology was negative. awake h/o rt IJ dvt - off anticoagulation - due to bleeding platelet - > 100 s/p iv iron trial pt was on BIPAP - then o2 support h/o tachycardia - on meds - RT IJ line remvoed moving arms>legs left arm swelling -dvt study negative for left arm rt IJ dvt is better d/w pt reg DVT - bleed - anemia psych consulted placement being looked into - Patient Problems (1) DVT (deep venous thrombosis) Current Visit: Yes Status: Acute Subjective Date of service: 04/25/19 Principal diagnosis: anemia - rt IJ dvt Interval history: transferred to med floor - getting PT Objective - Exam Narrative Exam: Pain - none now General appearance - awake Performance status limited self care Eyes - no icterus ENT - on o2 LNs cervical not palpable Neck - no LN Respiratory Normal Breath sounds - CTA anteriorly CVS S1 S2 + Extremities edema + better General GI Soft Rectal deferred male - deferred Skin warm Musculoskeletal moves arms>legs Neurologically awake - Constitutional Vitals: Last Vital Signs Temp 97.8 F 04/25/19 05:25 Pulse 83 04/25/19 05:25 Resp 18 04/25/19 05:25 BP 133/67 04/25/19 05:25 Pulse Ox 92 04/25/19 05:25 - Labs Lab Results: Laboratory Results - last 24 hr 04/24/19 04/25/19 04/25/19 11:47 00:01 05:36 WBC RBC Hgb Hct MCV MCH MCHC RDW Plt Count Lymph % (Auto) [place] % (Auto) Eos % (Auto) Baso % (Auto) Lymph # [place] # Eos # Baso # Seg Neutrophils % Seg Neutrophils # Sodium Potassium Chloride Carbon Dioxide Anion Gap BUN Creatinine Estimated GFR BUN/Creatinine Ratio Glucose POC Glucose 106 H 96 94 Calcium Total Bilirubin AST ALT Alkaline Phosphatase Total Protein Albumin Albumin/Globulin Ratio 04/25/19 04/25/19 05:58 05:58 WBC 18.0 H RBC 2.98 L Hgb 8.3 L Hct 26.5 L MCV 89 MCH 28 MCHC 31 L RDW 17.9 H Plt Count 385 Lymph % (Auto) 10.1 L [place] % (Auto) 5.1 Eos % (Auto) 1.5 Baso % (Auto) 0.5 Lymph # 1.8 [place] # 0.9 H Eos # 0.3 Baso # 0.1 Seg Neutrophils % 82.8 H Seg Neutrophils # 15.0 H Sodium 141 Potassium 3.2 L Chloride 101.1 Carbon Dioxide 23 Anion Gap 20 BUN 52 H Creatinine 3.2 H Estimated GFR 21 BUN/Creatinine Ratio 16 Glucose 108 H POC Glucose Calcium 11.4 H Total Bilirubin 0.40 AST 17 ALT 21 Alkaline Phosphatase 53 Total Protein 6.5 Albumin 3.0 L Albumin/Globulin Ratio 0.9 Medications & Allergies - Medications Allergies/Adverse Reactions: Allergies No Known Allergies Allergy (Unverified 03/16/19 17:17) Home Medications: Home Medications Medication Instructions Recorded Confirmed Last Taken Type Unobtainable 03/18/19 04/20/19 Unknown History Active Medications: Generic Name Dose Route Start Last Admin Trade Name Freq PRN Reason Stop Dose Admin Acetaminophen 650 mg 04/02/19 23:26 04/21/19 20:29 Tylenol PO 650 mg Q4H PRN Administration Pain, Mild (1-3),temp>100.5 Albuterol 2.5 mg 03/29/19 13:08 Proventil IH Q4HRT PRN Shortness Of Breath Amiodarone HCl 200 mg 04/15/19 22:00 04/24/19 21:59 Cordarone PO 200 mg BID PAOLO Administration Lipase/Protease/Amylase 1 each 04/20/19 13:17 Pancrekarly Purcell 10,500 Unit FEEDTUBE PRN PRN For Clogged Feeding Tube Bacitracin 1 applic 04/17/19 08:00 Antibiotic Oint TP Q4H PRN upper lip sore/open Dextrose 50 gm 04/17/19 08:00 D50w (25gm) Vial IV Q1H PRN Hypoglycemia Epoetin Jet 20,000 unit 03/31/19 10:15 04/20/19 12:47 Procrit SUB-Q 20,000 unit NEYMAR PRN Administration hemodialysis Hydralazine HCl 20 mg 04/14/19 03:00 04/14/19 03:11 Apresoline IV 20 mg Q4H PRN Administration hypertemsion Hydrophilic Ointment 1 applic 03/16/19 15:50 04/19/19 18:24 Vaseline Lip Therapy TP 1 applic Q2HR PRN Administration Dry Lips Aztreonam 2 gm in 100 mls @ 100 mls/hr 04/17/19 18:00 04/24/19 10:09 Azactam/Ns 2 Gm/100 Ml IV 100 mls/hr Q24HR PAOLO Administration Protocol Linezolid 600 mg in 300 mls @ 300 mls/hr 04/17/19 17:00 04/25/19 05:05 Zyvox 600mg/300ml IV 300 mls/hr Q12H PAOLO Administration Protocol Sodium Chloride 100 mls @ 999 mls/hr 04/20/19 08:41 Nacl 0.9% IV NEYMAR PRN Hypotension Lansoprazole 30 mg 04/11/19 10:00 04/24/19 21:59 Prevacid Solutab FEEDTUBE 30 mg BID PAOLO Administration Metoprolol Tartrate 5 mg 04/16/19 22:24 04/22/19 00:20 Lopressor IV 5 mg Q6H PRN Administration For HR >120 Metoprolol Tartrate 25 mg 04/17/19 20:00 04/24/19 21:59 Lopressor PO 25 mg TID PAOLO Administration Multi-Ingred Cream/Lotion/Oil/Oint 1 applic 03/16/19 15:50 03/19/19 20:10 Artificial Tears Ophth Oint OU 1 applic Q4HR PRN Administration Dry Eye(s) Simple Syrup 15 ml 04/20/19 13:17 Simple Syrup FEEDTUBE PRN PRN Hypoglycemia Simple Syrup 30 ml 04/20/19 13:29 Simple Syrup FEEDTUBE PRN PRN Hypoglycemia Sodium Bicarbonate 325 mg 04/20/19 13:17 Sodium Bicarbonate FEEDTUBE PRN PRN For Clogged Feeding Tube Sodium Hypochlorite 1 applic 04/18/19 11:00 04/24/19 22:00 Dakin's Half Strength TP 1 applicatio BID PAOLO Administration
--- NOTE | 2019-04-25 08:23 | Consultation ---
History of Present Illness - Reason for Consult Consult date: 04/25/19 Reason for consult: Initial Psychiatric Evaluation - Chief Complaint Chief complaint: " Not good" - History of Present Psychiatric Illness Patient is a 43-year-old male with a past medical history of GERD and obesity. He presents to the hospital with alteration in mental status. Psychiatry was consulted for visual hallucinations. Today the patient is calm but somewhat irritable during the assessment. He reports " I'm not feeling well. I woke up this morning and couldn't swallow pills." Thought content impoverished. Patient asked, " why is mental health coming to see me. I don't need mental health." Patient denies mental health history. Patient denies SI/HI's, A/VH's, and delusions. Current Psychiatric Medications: Unable to Assess. Past Psychiatric History: Unable to Assess. Past Medication Trials: Unable to Assess. History of Alcohol/Drug Abuse: Unable to Assess. History of Trauma/Abuse:Unable to Assess. Social History: Unable to Assess. Family History of Psychiatric Illness/Substance Abuse: Unable to Assess. Medications and Allergies Allergies Allergy/AdvReac Type Severity Reaction Status Date / Time No Known Allergies Allergy Unverified 03/16/19 17:17 Home Medications Medication Instructions Recorded Confirmed Last Taken Type Unobtainable 03/18/19 04/20/19 Unknown History Active Meds: Active Medications Acetaminophen (Tylenol) 650 mg PO Q4H PRN PRN Reason: Pain, Mild (1-3),temp>100.5 Last Admin: 04/21/19 20:29 Dose: 650 mg Documented by: Albuterol (Proventil) 2.5 mg IH Q4HRT PRN PRN Reason: Shortness Of Breath Amiodarone HCl (Cordarone) 200 mg PO BID PAOLO Last Admin: 04/24/19 21:59 Dose: 200 mg Documented by: Lipase/Protease/Amylase (Pancrekarly Purcell 10,500 Unit) 1 each FEEDTUBE PRN PRN PRN Reason: For Clogged Feeding Tube Bacitracin (Antibiotic Oint) 1 applic TP Q4H PRN PRN Reason: upper lip sore/open Dextrose (D50w (25gm) Vial) 50 gm IV Q1H PRN PRN Reason: Hypoglycemia Epoetin Jet (Procrit) 20,000 unit SUB-Q NEYMAR PRN PRN Reason: hemodialysis Last Admin: 04/20/19 12:47 Dose: 20,000 unit Documented by: Hydralazine HCl (Apresoline) 20 mg IV Q4H PRN PRN Reason: hypertemsion Last Admin: 04/14/19 03:11 Dose: 20 mg Documented by: Hydrophilic Ointment (Vaseline Lip Therapy) 1 applic TP Q2HR PRN PRN Reason: Dry Lips Last Admin: 04/19/19 18:24 Dose: 1 applic Documented by: Aztreonam (Azactam/Ns 2 Gm/100 Ml) 2 gm in 100 mls @ 100 mls/hr IV Q24HR PAOLO; Protocol Last Admin: 04/24/19 10:09 Dose: 100 mls/hr Documented by: Linezolid (Zyvox 600mg/300ml) 600 mg in 300 mls @ 300 mls/hr IV Q12H PAOLO; Protocol Last Admin: 04/25/19 05:05 Dose: 300 mls/hr Documented by: Sodium Chloride (Nacl 0.9%) 100 mls @ 999 mls/hr IV NEYMAR PRN PRN Reason: Hypotension Lansoprazole (Prevacid Solutab) 30 mg FEEDTUBE BID [facility] Last Admin: 04/24/19 21:59 Dose: 30 mg Documented by: Metoprolol Tartrate (Lopressor) 5 mg IV Q6H PRN PRN Reason: For HR >120 Last Admin: 04/22/19 00:20 Dose: 5 mg Documented by: Metoprolol Tartrate (Lopressor) 25 mg PO TID [facility] Last Admin: 04/24/19 21:59 Dose: 25 mg Documented by: Multi-Ingred Cream/Lotion/Oil/Oint (Artificial Tears Ophth Oint) 1 applic OU Q4HR PRN PRN Reason: Dry Eye(s) Last Admin: 03/19/19 20:10 Dose: 1 applic Documented by: Simple Syrup (Simple Syrup) 15 ml FEEDTUBE PRN PRN PRN Reason: Hypoglycemia Simple Syrup (Simple Syrup) 30 ml FEEDTUBE PRN PRN PRN Reason: Hypoglycemia Sodium Bicarbonate (Sodium Bicarbonate) 325 mg FEEDTUBE PRN PRN PRN Reason: For Clogged Feeding Tube Sodium Hypochlorite (Dakin's Half Strength) 1 applic TP BID PAOLO Last Admin: 04/24/19 22:00 Dose: 1 applicatio Documented by: Mental Status Exam - Vital signs Last Vital Signs Temp 97.8 F 04/25/19 05:25 Pulse 83 04/25/19 05:25 Resp 18 04/25/19 05:25 BP 133/67 04/25/19 05:25 Pulse Ox 92 04/25/19 05:25 - Exam Narrative exam: Mental Status Exam: Appearance: calm Behavior: regular eye contact Speech: regular rate and soft/raspy tone Mood: "not good" Affect: congruent to mood Thought Process: impoverished Thought Content: denies SI/HI's and AVH's, delusions Motor Activity: lying in bed Cognition: A/O x 3 Insight: variable Judgment: variable Results Result Diagrams: 04/25/19 05:58 04/25/19 05:58 Abnormal lab results 04/24/19 04/25/19 04/25/19 Range/Units 11:47 05:58 05:58 WBC 18.0 H (4.5-11.0) K/mm3 RBC 2.98 L (3.65-5.03) M/mm3 Hgb 8.3 L (11.8-15.2) gm/dl Hct 26.5 L (35.5-45.6) % MCHC 31 L (32-34) % RDW 17.9 H (13.2-15.2) % Lymph % (Auto) 10.1 L (13.4-35.0) % [place] # 0.9 H (0.0-0.8) K/mm3 Seg Neutrophils % 82.8 H (40.0-70.0) % Seg Neutrophils # 15.0 H (1.8-7.7) K/mm3 Potassium 3.2 L (3.6-5.0) mmol/L BUN 52 H (9-20) mg/dL Creatinine 3.2 H (0.8-1.5) mg/dL Glucose 108 H (75-100) mg/dL POC Glucose 106 H (70-105) Calcium 11.4 H (8.4-10.2) mg/dL Albumin 3.0 L (3.9-5) g/dL All other labs normal. Assessment and Plan Assessment and plan: Impression: Provider unable to fully assess patient. Today the patient is calm but somewhat irritable during the assessment. Thought content impoverished. Recommendation/Plan: 1. Will reassess in 24 hours. 2. Will attempt to gain collateral to determine proper disposition. Disposition: Will reassess in [address] Millie Li.
[2019-04-25] MEDS: METOPROLOL TARTRATE 25 MG TAB PO SCH ×3 (08:53→21:49)
[2019-04-25] MEDS ORDERED: POTASSIUM CHLORIDE ER 20 MEQ TAB PO NR ×2 (09:35→17:45)
--- NOTE | 2019-04-25 09:35 | Progress Note ---
Assessment and Plan 1. Acute kidney injury: Vasomotor RUBEN in the setting of shock / volume depletion / Rhabdo. Baseline renal function is unknown. CT abdomen was negative for obstructive nephropathy. Patient was started on hemodialysis on 03/18/19 due to worsening metabolic acidosis and hyperkalemia. Hemodialysis: 03/18, 03/19, 03/20, 03/22, 03/23, 03/24, 03/26, 03/28, 03/29, 03/31, 04/02, 04/04, 04/06, 04/09, 04/11, 04/13, 04/18, 04/20. 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 BUN and creatinine level improving for the past few days. Monitor renal function. Renal prognosis is guarded. Avoid nephrotoxic agents. Meds dosage based on GFR. 2. FEN: Hypokalemia, K level is better. Hypernatremia, improved. Metabolic acidosis, improved. Volume overload, improving. Hypercalcemia, monitor. Monitor lytes. 3. Septic shock: Currently off pressors. Recurrent fever. Per ID recommendation the dialysis catheter was removed on 04/20. 4. Rhabdomyolysis: Improved. 5. A.fib with RVR: SR today. On Amiodarone and Metoprolol. Followed by Cards. 6. Respiratory failure: Extubated. 7. Severe anemia: S/p PRBC. Epogen as needed. 8. Elevated transaminases: Improved. 9. Encephalopathy: Improving. Examination: General appearance: well-developed, appears stated age, obese, not in distress HEENT: Atraumatic EYES: Pupils reacting to light Neck: supple Respiratory: faint rales noted Cardiology: regular, S1S2 heard, no murmur Gastrointestinal: obese, BS heard, not tender Integumentary: no rash noted Neurologic: alert, follows command, conversing, oriented Ext: L UE edema is improving Hemodialysis access: None Subjective Date of service: 04/25/19 Principal diagnosis: anemia - rt IJ dvt Interval history: Patient was seen and examined at the bedside. Doing ok. Objective - Vital Signs Vital signs: Vital Signs - 12hr 04/24/19 04/24/19 04/24/19 21:41 21:57 21:59 Temperature Pulse Rate 75 Respiratory Rate Blood Pressure 119/58 119/58 O2 Sat by Pulse 98 Oximetry 04/24/19 04/25/19 04/25/19 22:50 00:00 02:28 Temperature 98.3 F 98.3 F Pulse Rate 78 78 Respiratory 18 16 Rate Blood Pressure 125/64 120/62 O2 Sat by Pulse 92 99 Oximetry 04/25/19 04/25/19 04/25/19 04:00 05:25 08:53 Temperature 97.8 F Pulse Rate 84 83 92 H Respiratory 18 Rate Blood Pressure 133/67 118/64 O2 Sat by Pulse 92 Oximetry 04/25/19 09:04 Temperature Pulse Rate Respiratory Rate Blood Pressure O2 Sat by Pulse 95 Oximetry - Lab 04/25/19 05:58 04/25/19 05:58 Most recent lab results ABG pH 7.388 pH Units (7.350-7.450) 04/06/19 05:20 ABG pCO2 38.5 mm Hg 04/06/19 05:20 ABG pO2 104.0 mm Hg (80.0-90.0) H 04/06/19 05:20 ABG HCO3 22.6 mmol/L (20.0-26.0) 04/06/19 05:20 ABG O2 Saturation 97.8 % (95.0-99.0) 04/06/19 05:20 Calcium 11.4 mg/dL (8.4-10.2) H 04/25/19 05:58 Phosphorus 5.70 mg/dL (2.5-4.5) H 04/23/19 04:06 Magnesium 1.90 mg/dL (1.7-2.3) 03/31/19 15:07 Urine Creatinine 106.6 mg/dL (0.1-20.0) H 03/17/19 16:05 Urine Sodium 95 mmol/L 03/17/19 16:05 Medications & Allergies - Medications Allergies/Adverse Reactions: Allergies No Known Allergies Allergy (Unverified 03/16/19 17:17) Home Medications: Home Medications Medication Instructions Recorded Confirmed Last Taken Type Unobtainable 03/18/19 04/20/19 Unknown History Active Medications: Generic Name Dose Route Start Last Admin Trade Name Freq PRN Reason Stop Dose Admin Acetaminophen 650 mg 04/02/19 23:26 04/21/19 20:29 Tylenol PO 650 mg Q4H PRN Administration Pain, Mild (1-3),temp>100.5 Albuterol 2.5 mg 03/29/19 13:08 Proventil IH Q4HRT PRN Shortness Of Breath Amiodarone HCl 200 mg 04/15/19 22:00 04/24/19 21:59 Cordarone PO 200 mg BID PAOLO Administration Lipase/Protease/Amylase 1 each 04/20/19 13:17 Pancrekarly Purcell 10,500 Unit FEEDTUBE PRN PRN For Clogged Feeding Tube Bacitracin 1 applic 04/17/19 08:00 Antibiotic Oint TP Q4H PRN upper lip sore/open Dextrose 50 gm 04/17/19 08:00 D50w (25gm) Vial IV Q1H PRN Hypoglycemia Epoetin Jet 20,000 unit 03/31/19 10:15 04/20/19 12:47 Procrit SUB-Q 20,000 unit NEYMAR PRN Administration hemodialysis Hydralazine HCl 20 mg 04/14/19 03:00 04/14/19 03:11 Apresoline IV 20 mg Q4H PRN Administration hypertemsion Hydrophilic Ointment 1 applic 03/16/19 15:50 04/19/19 18:24 Vaseline Lip Therapy TP 1 applic Q2HR PRN Administration Dry Lips Aztreonam 2 gm in 100 mls @ 100 mls/hr 04/17/19 18:00 04/24/19 10:09 Azactam/Ns 2 Gm/100 Ml IV 100 mls/hr Q24HR PAOLO Administration Protocol Linezolid 600 mg in 300 mls @ 300 mls/hr 04/17/19 17:00 04/25/19 05:05 Zyvox 600mg/300ml IV 300 mls/hr Q12H PAOLO Administration Protocol Sodium Chloride 100 mls @ 999 mls/hr 04/20/19 08:41 Nacl 0.9% IV NEYMAR PRN Hypotension Lansoprazole 30 mg 04/11/19 10:00 04/24/19 21:59 Prevacid Solutab FEEDTUBE 30 mg BID PAOLO Administration Metoprolol Tartrate 5 mg 04/16/19 22:24 04/22/19 00:20 Lopressor IV 5 mg Q6H PRN Administration For HR >120 Metoprolol Tartrate 25 mg 04/17/19 20:00 04/25/19 08:53 Lopressor PO 25 mg TID PAOLO Administration Multi-Ingred Cream/Lotion/Oil/Oint 1 applic 03/16/19 15:50 03/19/19 20:10 Artificial Tears Ophth Oint OU 1 applic Q4HR PRN Administration Dry Eye(s) Simple Syrup 15 ml 04/20/19 13:17 Simple Syrup FEEDTUBE PRN PRN Hypoglycemia Simple Syrup 30 ml 04/20/19 13:29 Simple Syrup FEEDTUBE PRN PRN Hypoglycemia Sodium Bicarbonate 325 mg 04/20/19 13:17 Sodium Bicarbonate FEEDTUBE PRN PRN For Clogged Feeding Tube Sodium Hypochlorite 1 applic 04/18/19 11:00 04/24/19 22:00 Dakin's Half Strength TP 1 applicatio BID PAOLO Administration
[2019-04-25] MEDS: AMIODARONE 200 MG TAB PO SCH ×2 (10:10→21:49)
[2019-04-25] MEDS: LANSOPRAZOLE 30 MG SOLUTAB FEEDTUBE SCH ×2 (10:10→21:49)
[2019-04-25] MEDS: AZTREONAM/NS 2 GM/100 ML 2 GM/100 ML VIAL IV SCH (10:11)
[2019-04-25] MEDS: SODIUM HYPOCHLORITE, DAKIN'S 1/2 STRENGTH (0.25%) 473 ML TOPICAL SOLN TP SCH (11:36)
--- NOTE | 2019-04-25 13:25 | Progress Note ---
Assessment and Plan Cultures: 03/16/2019 sputum: salivary contamination 03/16/2019 Blood culture: no growth 03/17/2019 Urine culture no growth 03/17/2019 throat culture: no growth 03/26/2019 Blood culture: no growth 03/27/2019 Blood culture negative. 04/04/2019 blood culture NGTD 04/05/2019 urine culture: no growth 04/11/2019 blood culture: no growth 04/15/2019 blood culture: no growth Assessment: 43y/o male with possible psych history admitted on 03/16/2019 with: 1) Septic shock: Resolved. Fever after right IJ exchanged overwire on 03/27, fever had improved. Brain MRI showed no acute intracranial abnormality, mild nonspecific chronic white matter changes, fluid throughout the sinuses and mastoid air cells. Venous US + right IJ DVT. Completed empiric Cefepime x 10 days on 04/06/2019. Initial septic shock - Possible Infectious etiology v/s possibility of Neuroleptic Malignant Syndrome given psych history, high fever of 105F and extremely elevated CPK of >100K. Unclear if he was on any psych med. From ID standpoint, we will continue broad coverage for acute bacterial meningitis, tick borne illness, aspiration pneumonia. Blood culture negative UA with mild pyuria. HIV rapid negative. Strep A rapid ag negative. No obvious infectious source identified yet. 2) High fevers with elevated WBC: ?drug fever v/s infected HD cath. Blood cultures have remained negative. CXR with no obvious pneumonia. 3) Probable aspiration pneumonia, fluid overload, acute resp failure: on oxygen. Previously completed abx. 4) Acute encephalopathy: improving, awake, alert, calm. 5) Acute renal failure: renally dosing all abx, now on iHD. 6) Elevated LFTs/shock liver: resolved. 7) Thrombocytopenia: platelet normalized. 8) Rhabdomyolysis: CK normalized. 9) Multiple superficial wounds: do not appear infected. Continue wound care. Recommendations: continue renally adjusted IV aztreonam and linezolid for now given worsening white count. follow daily WBC LANDY, complement levels within normal limits. Continue wound care MD [facility] M: [phone] O: [phone] F: [phone] Subjective Date of service: 04/25/19 Principal diagnosis: anemia - rt IJ dvt Interval history: Stable leukocytosis. Remains afebrile. Objective - Exam Narrative Exam: General appearance: alert, awake Eyes: pupils dannie contracted poorly reactive, no jaundice HENT: Atraumatic; oropharynx with ETT/OGT Neck: no JVD Lungs:distant BS CV: RRR Abdomen: Soft, non-tender Extremities: marked dannie leg edema/arm edema Skin:no rash, +scrotal edema Psych: NAD Neuro: Normal strength - Constitutional Vitals: Vital Signs Temp Pulse Resp BP Pulse Ox 98.4 F 78 18 121/60 95 04/25/19 11:22 04/25/19 12:00 04/25/19 12:00 04/25/19 11:22 04/25/19 11:22 Temperature -Last 24 Hours Temperature 98.4 F Temperature 97.8 F Temperature 98.3 F Temperature 98.3 F Temperature 98.5 F Temperature 98.4 F - Labs CBC & Chem 7: 04/25/19 05:58 04/25/19 05:58 Labs: Abnormal lab results 04/25/19 04/25/19 Range/Units 05:58 05:58 WBC 18.0 H (4.5-11.0) K/mm3 RBC 2.98 L (3.65-5.03) M/mm3 Hgb 8.3 L (11.8-15.2) gm/dl Hct 26.5 L (35.5-45.6) % MCHC 31 L (32-34) % RDW 17.9 H (13.2-15.2) % Lymph % (Auto) 10.1 L (13.4-35.0) % [place] # 0.9 H (0.0-0.8) K/mm3 Seg Neutrophils % 82.8 H (40.0-70.0) % Seg Neutrophils # 15.0 H (1.8-7.7) K/mm3 Potassium 3.2 L (3.6-5.0) mmol/L BUN 52 H (9-20) mg/dL Creatinine 3.2 H (0.8-1.5) mg/dL Glucose 108 H (75-100) mg/dL Calcium 11.4 H (8.4-10.2) mg/dL Albumin 3.0 L (3.9-5) g/dL
--- NOTE | 2019-04-25 14:29 | Progress Note ---
Assessment and Plan Assessment and plan: Patient is a 43-year-old man with history of GERD, obesity and mental illness, who presented to [facility] ED on 03/16/2019 with altered mental status. He is visiting from [place] and was brought in by his friend. As per records per family he has been homeless living [address] [place]. When he came to the ER, he was unable to speak or follow commands, in the ER he was found to have SVT with heart rate in the 250s. The patient was shocked and medicated. Also was confused, and had trouble protecting his airway; therefore, he was then intubated. He has had a prolonged hospital course. During this hospital course, he was found to have sepsis with septic shock, acute resp failure, rhabdomyolysis, RUBEN, and multisystem organ failure, toxic metabolic encephalopathy. He was started on hemodialysis-still getting dialysis. patient is much improved. Still has recurrent fever, followed by ID Physician. Patient now on Azactam, Zyvox. He passed his swallow test started on mechanical soft diet today 04/21/19. * Initial rhythm appeared to be SVT * Per friend patient complaining of feeling ill and has some left eye discharge, cold, clammy and diaphrietic by the time arrived to the hospital. Also mentions a possibility of a right axilla abscess. The and went to stay with his girlfriend the last 2 days and this morning when he saw the patient he was ill-appearing but sleeping. * Currently on 4 pressors * Start on Elizabeth culture including coverage for possible Meningitis CHEST 1 VIEW . IMPRESSION: 1. Endotracheal tube in good position. 2. Nasogastric tube doubled back on itself at the level of the salina with the tip not seen. The tube will need to be removed/reposition. CT of the chest, abdomen and pelvis without contrast . IMPRESSION: 1. Parenchymal disease in both lower lobes posteromedially may be related to aspiration pneumonia. 2. Moderately dilated small bowel bowel loops in the mid to upper abdomen anteriorly with mild associated bowel wall thickening. Locali zed enteritis and small bowel ischemia should be considered. CT head/brain wo contrast. IMPRESSION: 1. Some component of diffuse cerebral edema cannot be excluded. However, this finding may be artifactual secondary to patient positioning. Close follow-up is recommended. No definitive signs of herniation or large territorial infarct at this time. 2. Otherwise, no focal mass, hemorrhage, hydrocephalus, or large infarct seen. Acute hypoxic respiratory failure. Was intubated, now extubated. Now on Room air. Continue BiPAP as clinically indicated. SVT with Polymorphic Vtach/Atrial fibrillation. Continue Metoprolol. Cardiology following. No systemic AC regarding AFib in setting of anemia, thrombocytopenia, GI bleed. Acute blood loss anemia. Patient with GI bleed secondary to peptic ulcer disease. EGD completed per GI. Continue PRBCs as needed. GI bleed/peptic ulcer disease. Continue PPI. Transfuse PRBCs as needed. Sepsis/septic shock. Continue antibiotics per ID. Now on Zyvox and Azactam Right Axillary cellulitis/Suspect Aspiration pneumonia/Acute Cystitis Fever, recurrent- Improved ID following Severe Metabolic Acidosis- Resolved Hypercalcemia: Slight improvement. Continue to monitor Multi-Organ failure/ Ischemic hepatitis/shock liver. Elevated LFTs improved. Viral hepatitis panel negative Rhabdomyolysis- Resolved Acute Kidney Failure secondary to ATN ANURIC. Patient still on hemodialysis. Patient was started on hemodialysis on 03/18/19 due to worsening metabolic acidosis and hyperkalemia. Baseline renal function is unknown. CT abdomen was negative for obstructive nephropathy. Avoid nephrotoxic agents. Continue hemodialysis per nephrology. Toxic metabolic encephalopathy. Brain MRI showed no acute intracranial abnormality, mild nonspecific chronic white matter changes, fluid throughout the sinuses and mastoid air cells. Swelling both upper ext L>R Doppler US : no DVT LUE Hypokalemia. Correted Replete potassium as needed. Hypernatremia. Bumex was stopped. Follow-up BMP Nephrology following Now resolved Thrombocytopenia, Presume DIC. Etiology likely secondary to sepsis. Resolved. Rhabdomyolysis. CK normalized. Full code status Continue aggressive PT. will obtain Psych consult given the hallucination History Interval history: Patient seen and examined, no new complaints, still very lethargic. Hospitalist Physical - Physical exam Narrative exam: Constitutional: Well-nourished well-developed. mild distress, confused, temporal wasting Head: Normocephalic atraumatic Eyes: Pupils are equal round and reactive to light Mouth: Moist mucous membranes. Neck: Supple no thyromegaly. No bruit. No JVD Heart: Irregularly irregular. No rubs murmurs or gallop Lungs: Clear to auscultation bilaterally. no rales or rhonchi Abdomen: Soft, nontender. Bowel sound are present. Extremities: No edema, no cyanosis, no clubbing. Neuro: Alert oriented Oriented x2. No focal sensory or motor deficit. Skin: No rashes or hyperpigmented spots Musculoskeletal system: No joint pain or swelling Hematological: No petechia or subcutanous hemorrhages. Immunological: No multiple septic spots on the skin Lymphatic: No generalized lymphadenopathy Psychiatry: Euthymic. Calm. ANXIOUS - Constitutional Vitals: Temp Pulse Resp BP Pulse Ox 98.4 F 78 18 121/60 95 04/25/19 11:22 04/25/19 12:00 04/25/19 12:00 04/25/19 11:22 04/25/19 11:22 General appearance: Present: obese Results - Labs CBC & Chem 7: 04/25/19 05:58 04/25/19 05:58 Labs: Laboratory Last Values WBC 18.0 K/mm3 (4.5-11.0) H 04/25/19 05:58 RBC 2.98 M/mm3 (3.65-5.03) L 04/25/19 05:58 Hgb 8.3 gm/dl (11.8-15.2) L 04/25/19 05:58 Hct 26.5 % (35.5-45.6) L 04/25/19 05:58 MCV 89 fl (84-94) 04/25/19 05:58 MCH 28 pg (28-32) 04/25/19 05:58 MCHC 31 % (32-34) L 04/25/19 05:58 RDW 17.9 % (13.2-15.2) H 04/25/19 05:58 Plt Count 385 K/mm3 (140-440) 04/25/19 05:58 Lymph % (Auto) 10.1 % (13.4-35.0) L 04/25/19 05:58 Garrard % (Auto) 5.1 % (0.0-7.3) 04/25/19 05:58 Eos % (Auto) 1.5 % (0.0-4.3) 04/25/19 05:58 Baso % (Auto) 0.5 % (0.0-1.8) 04/25/19 05:58 Lymph # 1.8 K/mm3 (1.2-5.4) 04/25/19 05:58 Garrard # 0.9 K/mm3 (0.0-0.8) H 04/25/19 05:58 Eos # 0.3 K/mm3 (0.0-0.4) 04/25/19 05:58 Baso # 0.1 K/mm3 (0.0-0.1) 04/25/19 05:58 Add Manual Diff Complete 04/11/19 04:16 Total Counted 100 04/11/19 04:16 Seg Neutrophils % 82.8 % (40.0-70.0) H 04/25/19 05:58 Seg Neuts % (Manual) 71.0 % (40.0-70.0) H 04/11/19 04:16 Band Neutrophils % 1.0 % 04/11/19 04:16 Lymphocytes % (Manual) 17.0 % (13.4-35.0) 04/11/19 04:16 Reactive Lymphs % (Man) 0 % 04/11/19 04:16 Monocytes % (Manual) 8.0 % (0.0-7.3) H 04/11/19 04:16 Eosinophils % (Manual) 2.0 % (0.0-4.3) 04/11/19 04:16 Basophils % (Manual) 1.0 % (0.0-1.8) 04/11/19 04:16 Metamyelocytes % 0 % 04/11/19 04:16 Myelocytes % 0 % 04/11/19 04:16 Promyelocytes % 0 % 04/11/19 04:16 Blast Cells % 0 % 04/11/19 04:16 Nucleated RBC % Not Reportable 04/11/19 04:16 Seg Neutrophils # 15.0 K/mm3 (1.8-7.7) H 04/25/19 05:58 Seg Neutrophils # Man 8.2 K/mm3 (1.8-7.7) H 04/11/19 04:16 Band Neutrophils # 0.1 K/mm3 04/11/19 04:16 Lymphocytes # (Manual) 2.0 K/mm3 (1.2-5.4) 04/11/19 04:16 Abs React Lymphs (Man) 0.0 K/mm3 04/11/19 04:16 Monocytes # (Manual) 0.9 K/mm3 (0.0-0.8) H 04/11/19 04:16 Eosinophils # (Manual) 0.2 K/mm3 (0.0-0.4) 04/11/19 04:16 Basophils # (Manual) 0.1 K/mm3 (0.0-0.1) 04/11/19 04:16 Metamyelocytes # 0.0 K/mm3 04/11/19 04:16 Myelocytes # 0.0 K/mm3 04/11/19 04:16 Promyelocytes # 0.0 K/mm3 04/11/19 04:16 Blast Cells # 0.0 K/mm3 04/11/19 04:16 WBC Morphology Not Reportable 04/11/19 04:16 Hypersegmented Neuts Not Reportable 04/11/19 04:16 Hyposegmented Neuts Not Reportable 04/11/19 04:16 Hypogranular Neuts Not Reportable 04/11/19 04:16 Smudge Cells Not Reportable 04/11/19 04:16 Toxic Granulation Not Reportable 04/11/19 04:16 Toxic Vacuolation Not Reportable 04/11/19 04:16 Dohle Bodies Not Reportable 04/11/19 04:16 Pelger-Huet Anomaly Not Reportable 04/11/19 04:16 Joyce Rods Not Reportable 04/11/19 04:16 Platelet Estimate Consistent w auto 04/11/19 04:16 Clumped Platelets Not Reportable 04/11/19 04:16 Plt Clumps, EDTA Not Reportable 04/11/19 04:16 Large Platelets Not Reportable 04/11/19 04:16 Giant Platelets Not Reportable 04/11/19 04:16 Platelet Satelliting Not Reportable 04/11/19 04:16 Plt Morphology Comment Not Reportable 04/11/19 04:16 RBC Morphology Not Reportable 04/11/19 04:16 Dimorphic RBCs Not Reportable 04/11/19 04:16 Polychromasia Not Reportable 04/11/19 04:16 Hypochromasia Not Reportable 04/11/19 04:16 Poikilocytosis Not Reportable 04/11/19 04:16 Anisocytosis Rare 04/11/19 04:16 Microcytosis Rare 04/11/19 04:16 Macrocytosis Not Reportable 04/11/19 04:16 Spherocytes Not Reportable 04/11/19 04:16 Pappenheimer Bodies Not Reportable 04/11/19 04:16 Sickle Cells Not Reportable 04/11/19 04:16 Target Cells Not Reportable 04/11/19 04:16 Tear Drop Cells Not Reportable 04/11/19 04:16 Ovalocytes Not Reportable 04/11/19 04:16 Stomatocytes Few 03/26/19 Unknown Helmet Cells Not Reportable 04/11/19 04:16 Shrestha-Leslie Bodies Not Reportable 04/11/19 04:16 Cascade Rings Not Reportable 04/11/19 04:16 Samantha Cells Not Reportable 04/11/19 04:16 Bite Cells Not Reportable 04/11/19 04:16 Crenated Cell Not Reportable 04/11/19 04:16 Elliptocytes Not Reportable 04/11/19 04:16 Acanthocytes (Spur) Not Reportable 04/11/19 04:16 Rouleaux Not Reportable 04/11/19 04:16 Hemoglobin C Crystals Not Reportable 04/11/19 04:16 Schistocytes Not Reportable 04/11/19 04:16 Malaria parasites Not Reportable 04/11/19 04:16 Phil Bodies Not Reportable 04/11/19 04:16 Hem Pathologist Commnt No 04/11/19 04:16 PT 15.3 Sec. (12.2-14.9) H 03/29/19 11:48 INR 1.24 (0.87-1.13) H 03/29/19 11:48 APTT 26.6 Sec. (24.2-36.6) 03/28/19 12:00 Fibrinogen 226 mg/dl (211-480) 03/28/19 12:00 D-Dimer 4845.98 ng/mlDDU (0-234) H 03/28/19 12:00 Heparin Anti-Xa Level 0.23 U.I./ml (0.3-0.7) L 03/28/19 05:13 POC ABG pH 7.401 (7.35-7.45) 04/07/19 12:57 ABG pH 7.388 pH Units (7.350-7.450) 04/06/19 05:20 POC ABG pCO2 41.5 (35-45) 04/07/19 12:57 ABG pCO2 38.5 mm Hg 04/06/19 05:20 POC ABG pO2 107 (80-105) H 04/07/19 12:57 ABG pO2 104.0 mm Hg (80.0-90.0) H 04/06/19 05:20 POC ABG HCO3 25.7 (22-26 mml/L) 04/07/19 12:57 ABG HCO3 22.6 mmol/L (20.0-26.0) 04/06/19 05:20 POC ABG Total CO2 27 (23-27mmol/L) 04/07/19 12:57 POC ABG O2 Sat 98 04/07/19 12:57 ABG O2 Saturation 97.8 % (95.0-99.0) 04/06/19 05:20 ABG O2 Content 10.0 (0.0-44) 04/06/19 05:20 POC ABG Base Excess 1 ((-2) - (+3)mmol/L) 04/07/19 12:57 ABG Base Excess -2.1 mmol/L (-2.0-3.0) L 04/06/19 05:20 ABG Hemoglobin 7.3 gm/dl (14.0-18.0) L 04/06/19 05:20 ABG Carboxyhemoglobin 1.7 % (0.0-5.0) 04/06/19 05:20 ABG Methemoglobin 0.6 % (0.0-1.5) 04/06/19 05:20 Oxyhemoglobin 95.5 % (95.0-99.0) 04/06/19 05:20 FiO2 30 % 04/07/19 12:57 Sodium 141 mmol/L (137-145) 04/25/19 05:58 Potassium 3.2 mmol/L (3.6-5.0) L 04/25/19 05:58 Chloride 101.1 mmol/L (98-107) 04/25/19 05:58 Carbon Dioxide 23 mmol/L (22-30) 04/25/19 05:58 Anion Gap 20 mmol/L 04/25/19 05:58 BUN 52 mg/dL (9-20) H 04/25/19 05:58 Creatinine 3.2 mg/dL (0.8-1.5) H 04/25/19 05:58 Estimated GFR 21 ml/min 04/25/19 05:58 BUN/Creatinine Ratio 16 % 04/25/19 05:58 Glucose 108 mg/dL (75-100) H 04/25/19 05:58 POC Glucose 97 (70-105) 04/25/19 11:10 Lactic Acid 1.90 mmol/L (0.7-2.0) 03/21/19 21:31 Calcium 11.4 mg/dL (8.4-10.2) H 04/25/19 05:58 Ionized Calcium 3.7 mg/dL (4.8-5.6) L 03/30/19 12:09 Phosphorus 5.70 mg/dL (2.5-4.5) H 04/23/19 04:06 Magnesium 1.90 mg/dL (1.7-2.3) 03/31/19 15:07 Iron 26 ug/dL (49-181) L 04/02/19 05:03 TIBC 138 mcg/dL (250-450) L 04/02/19 05:03 Ferritin 607.0 ng/mL (13.0-400.0) H 04/02/19 05:03 Total Bilirubin 0.40 mg/dL (0.1-1.2) 04/25/19 05:58 Direct Bilirubin 0.4 mg/dL (0-0.2) H 03/31/19 08:20 Indirect Bilirubin 0.1 mg/dL 03/31/19 08:20 AST 17 units/L (5-40) 04/25/19 05:58 ALT 21 units/L (7-56) 04/25/19 05:58 Alkaline Phosphatase 53 units/L (35-129) 04/25/19 05:58 Total Creatine Kinase 62 units/L (55-170) 04/07/19 05:40 CK-MB (CK-2) 54.3 ng/mL (0.0-4.0) H 03/17/19 07:16 CK-MB (CK-2) Rel Index 0.0 (0-4) 03/17/19 07:16 Troponin T 0.058 ng/mL (0.00-0.029) H 03/17/19 07:16 C-Reactive Protein 7.10 mg/dL (0.00-1.30) H 04/17/19 04:15 Total Protein 6.5 g/dL (6.3-8.2) 04/25/19 05:58 Albumin 3.0 g/dL (3.9-5) L 04/25/19 05:58 Albumin/Globulin Ratio 0.9 % 04/25/19 05:58 Triglycerides 309 mg/dL (2-149) H 03/29/19 06:22 Cholesterol 88 mg/dL (50-199) 03/16/19 22:32 LDL Cholesterol Direct 10 mg/dL (50-130) L 03/16/19 22:32 HDL Cholesterol 7 mg/dL (40-59) L 03/16/19 22:32 Cholesterol/HDL Ratio 12.57 % 03/16/19 22:32 Vitamin B12 903.0 pg/mL (211-911) 04/02/19 05:03 Folate 8.05 ng/mL (7.3-26.0) 04/02/19 05:03 Procalcitonin 25.42 ng/mL (<0.15) 03/27/19 19:21 TSH 2.200 mlU/mL (0.270-4.200) 03/16/19 17:05 Free T4 0.72 ng/dL (0.76-1.46) L 03/16/19 17:05 PTH Intact 329.9 pg/mL (15-65) H 03/25/19 05:00 Urine Color Yellow (Yellow) 04/15/19 22:11 Urine Turbidity Clear (Clear) 04/15/19 22:11 Urine pH 6.0 (5.0-7.0) 04/15/19 22:11 Ur Specific [place] 1.010 (1.003-1.030) 04/15/19 22:11 Urine Protein 30 mg/dl mg/dL (Negative) 04/15/19 22:11 Urine Glucose (UA) Neg mg/dL (Negative) 04/15/19 22:11 Urine Ketones Neg mg/dL (Negative) 04/15/19 22:11 Urine Blood Mod (Negative) 04/15/19 22:11 Urine Nitrite Neg (Negative) 04/15/19 22:11 Urine Bilirubin Neg (Negative) 04/15/19 22:11 Urine Urobilinogen < 2.0 mg/dL (<2.0) 04/15/19 22:11 Ur Leukocyte Esterase Neg (Negative) 04/15/19 22:11 Urine WBC (Auto) 4.0 /HPF (0.0-6.0) 04/15/19 22:11 Urine RBC (Auto) 2.0 /HPF (0.0-6.0) 04/15/19 22:11 U Epithel Cells (Auto) < 1.0 /HPF (0-13.0) 04/15/19 22:11 Amorphous Crystals 1+ 04/05/19 16:50 Urine Mucus Few /HPF 03/17/19 16:05 Urine Sperm 2+ /HPF ([employer]) 03/17/19 16:05 Urine Eosinophils None seen (None Seen) 03/17/19 16:05 Urine Creatinine 106.6 mg/dL (0.1-20.0) H 03/17/19 16:05 Urine Sodium 95 mmol/L 03/17/19 16:05 Vancomycin Trough 11.5 ug/mL (5.0-20.0) 03/18/19 13:19 Random Vancomycin 10.8 ug/mL (0-40.0) 04/14/19 03:55 Salicylates < 0.3 mg/dL (2.8-20.0) L 03/16/19 17:05 Urine Opiates Screen Presumptive negative 03/17/19 16:05 Urine Methadone Screen Presumptive negative 03/17/19 16:05 Acetaminophen < 5.0 ug/mL (10.0-30.0) L 03/16/19 17:05 Ur Barbiturates Screen Presumptive negative 03/17/19 16:05 Ur Phencyclidine Scrn Presumptive negative 03/17/19 16:05 Ur Amphetamines Screen Presumptive negative 03/17/19 16:05 U Benzodiazepines Scrn Presumptive positive 03/17/19 16:05 Urine Cocaine Screen Presumptive negative 03/17/19 16:05 U Marijuana (THC) Screen Presumptive negative 03/17/19 16:05 Drugs of Abuse Note Disclamer 03/17/19 16:05 Plasma/Serum Alcohol < 0.01 % (0-0.07) 03/16/19 17:05 LANDY Screen Negative (Negative) 04/17/19 04:15 Complement C3 150 mg/dL (82-185) 04/17/19 04:15 Complement C4 37 mg/dL (15-53) 04/17/19 04:15 Hepatitis A IgM Ab Non-reactive (NonReactive) 04/18/19 10:02 Hep Bs Antigen Non-reactive (Negative) 04/18/19 10:02 Hep B Core IgM Ab Non-reactive (NonReactive) 04/18/19 10:02 Hepatitis C Antibody Non-reactive (NonReactive) 04/18/19 10:02 HIV 1&2 Antibody Rapid Non react (Non React) 03/17/19 11:52 HIV P24 Antigen Non react (Non React) 03/17/19 11:52 Influenza A (Rapid) Negative (Negative) 03/17/19 17:00 Influenza B (Rapid) Negative (Negative) 03/17/19 17:00 Group A Strep Rapid Negative (Negative) 03/17/19 17:00 Miscellaneous Test Flexitest 1 03/21/19 12:00 Blood Type A POSITIVE 04/02/19 16:34 Antibody Screen Negative 04/02/19 16:34 Crossmatch See Detail 04/02/19 16:34 Active Medications - Current Medications Current Medications: Generic Name Dose Route Start Last Admin Trade Name Freq PRN Reason Stop Dose Admin Acetaminophen 650 mg 04/02/19 23:26 04/21/19 20:29 Tylenol PO 650 mg Q4H PRN Administration Pain, Mild (1-3),temp>100.5 Albuterol 2.5 mg 03/29/19 13:08 Proventil IH Q4HRT PRN Shortness Of Breath Amiodarone HCl 200 mg 04/15/19 22:00 04/25/19 10:10 Cordarone PO 200 mg BID PAOLO Administration Lipase/Protease/Amylase 1 each 04/20/19 13:17 Pancrekarly Purcell 10,500 Unit FEEDTUBE PRN PRN For Clogged Feeding Tube Bacitracin 1 applic 04/17/19 08:00 Antibiotic Oint TP Q4H PRN upper lip sore/open Dextrose 50 gm 04/17/19 08:00 D50w (25gm) Vial IV Q1H PRN Hypoglycemia Epoetin Jet 20,000 unit 03/31/19 10:15 04/20/19 12:47 Procrit SUB-Q 20,000 unit NEYMAR PRN Administration hemodialysis Hydralazine HCl 20 mg 04/14/19 03:00 04/14/19 03:11 Apresoline IV 20 mg Q4H PRN Administration hypertemsion Hydrophilic Ointment 1 applic 03/16/19 15:50 04/19/19 18:24 Vaseline Lip Therapy TP 1 applic Q2HR PRN Administration Dry Lips Aztreonam 2 gm in 100 mls @ 100 mls/hr 04/17/19 18:00 04/25/19 10:11 Azactam/Ns 2 Gm/100 Ml IV 100 mls/hr Q24HR PAOLO Administration Protocol Linezolid 600 mg in 300 mls @ 300 mls/hr 04/17/19 17:00 04/25/19 05:05 Zyvox 600mg/300ml IV 300 mls/hr Q12H PAOLO Administration Protocol Sodium Chloride 100 mls @ 999 mls/hr 04/20/19 08:41 Nacl 0.9% IV NEYMAR PRN Hypotension Lansoprazole 30 mg 04/11/19 10:00 04/25/19 10:10 Prevacid Solutab FEEDTUBE 30 mg BID PAOLO Administration Metoprolol Tartrate 5 mg 04/16/19 22:24 04/22/19 00:20 Lopressor IV 5 mg Q6H PRN Administration For HR >120 Metoprolol Tartrate 25 mg 04/17/19 20:00 04/25/19 08:53 Lopressor PO 25 mg TID PAOLO Administration Multi-Ingred Cream/Lotion/Oil/Oint 1 applic 03/16/19 15:50 03/19/19 20:10 Artificial Tears Ophth Oint OU 1 applic Q4HR PRN Administration Dry Eye(s) Simple Syrup 15 ml 04/20/19 13:17 Simple Syrup FEEDTUBE PRN PRN Hypoglycemia Simple Syrup 30 ml 04/20/19 13:29 Simple Syrup FEEDTUBE PRN PRN Hypoglycemia Sodium Bicarbonate 325 mg 04/20/19 13:17 Sodium Bicarbonate FEEDTUBE PRN PRN For Clogged Feeding Tube Sodium Hypochlorite 1 applic 04/18/19 11:00 04/25/19 11:36 Dakin's Half Strength TP 1 applicatio BID PAOLO Administration Nutrition/Malnutrition Assess - Dietary Evaluation Nutrition/Malnutrition Findings: Nutrition Notes Start: 03/17/19 14:22 Freq: Status: Active Protocol: Document 04/20/19 12:15 RS (Rec: 04/20/19 13:13 RS [id number]) Co-Sign 04/20/19 12:15 LM Nutrition Notes Initial or Follow up Reassessment Current Diagnosis Acute Kidney Injury,Heart Failure Other Pertinent Diagnosis on HD, Septic shock,Multiple organ failure, encephalopathy, Aspiration pneu Current Diet Nepro at 50 ml/hr Labs/Tests Na: 147 K: 3.3 BUN: 45 Cr: 2.9 Pertinent Medications Reviewed Height 6 ft Weight 147 kg [place] Body Weight (kg) 80.90 BMI 43.9 Subjective/Other Information Observed Nepro infusing at goal rate of 50mL/hr. Pt tolerating TF well. Percent of energy/protein needs met: 100%/100% Burn Absent Trauma Absent Minimum of two criteria No #1 Nutrition Diagnosis Inadequate oral intake Diagnosis Progress(for reassessment Continues documentation) Is patient on ventilator? No Is Patient Ambulatory and/or Out of Bed No REE-([facility]-confined to bed) 2874.156 Kcal/Kg value to use for calculation 14 Approximate Energy Requirements Using 2057 kcal/Kg Calculation Used for Recommendations Kcal/kg Additional Notes Protein: 97-121g (1.2-1.5g/kg, IBW) Fluids:1 ml/kcal or per MD Nutrition Intervention Nutrition Support: Nepro 1.8 at 50 ml/hr Water flush 300 ml q4hr until hypernatremia resolves, or per MD Water flush 150 ml q4hr once hypernatremia resolves, or per MD Kcal 2,160 Protein (gm) 97 Fluid (mL) 872 Goal #1 TF tolerance Goal #2 Continue to meet at least 75% of calorie and protein needs via TF Anticipated Discharge Needs: Unable to determine at this time Follow-Up By: 04/27/19 Additional Comments Follow for TF tolerance
--- NOTE | 2019-04-25 14:51 | Progress Note ---
Assessment and Plan Patient moved to the [facility]. Patient awake and more oriented. Patient Presently is on room air. O2 saturation is 95%. No acute respiratory distress. Patient afebrile and has leukocytosis. Patient is on zyvox and azactam. Patients heart rate and blood pressure running good. Patients Patients calcium still high, 11.4. Patient receiving normal saline. - Patient Problems (1) Acute respiratory failure Current Visit: Yes Status: Acute Qualifiers: Respiratory failure complication: hypoxia Qualified Code(s): J96.01 - Acute respiratory failure with hypoxia Plan to address problem: O2 2L as needed for shortness of breath or desaturation. Albuterol/atrovent aerosol treatments q 6 hours. Continue Prevacid. Recommend DVT prophylaxis. SCDs (2) Altered mental status Current Visit: Yes Status: Acute Qualifiers: Altered mental status type: unspecified Qualified Code(s): R41.82 - Altered mental status, unspecified Plan to address problem: Management as per primary care and neurology. (3) Atrial fibrillation with RVR Current Visit: Yes Status: Acute Plan to address problem: Management as per cardiology. (4) Cardiopulmonary arrest Current Visit: Yes Status: Acute Plan to address problem: Patient resuscitated. Presently resting on room air. (5) Acute renal failure Current Visit: Yes Status: Acute Qualifiers: Acute renal failure type: with acute tubular necrosis Qualified Code(s): N17.0 - Acute kidney failure with tubular necrosis Plan to address problem: Management as per nephrology. (6) Aspiration pneumonia Current Visit: Yes Status: Acute Qualifiers: Aspiration pneumonia type: unspecified Plan to address problem: Patient is on Azactam and zyvox. (7) GI bleed Current Visit: Yes Status: Acute Plan to address problem: Management as per gastroenterology. Subjective Date of service: 04/25/19 Principal diagnosis: anemia - rt IJ dvt Interval history: Patient moved to the [facility]. Patient awake and more oriented. Patient Presently is on room air. O2 saturation is 95%. No acute respiratory distress. Patient afebrile and has leukocytosis. Patient is on zyvox and azactam. Patients heart rate and blood pressure running good. Patients Patients calcium still high, 11.4. Patient receiving normal saline. Objective Vital Signs - 12hr 04/25/19 04/25/19 04/25/19 04:00 05:25 08:00 Temperature 97.8 F Pulse Rate 84 83 72 Pulse Rate [ From Monitor] Respiratory 18 Rate Blood Pressure 133/67 O2 Sat by Pulse 92 Oximetry 04/25/19 04/25/19 04/25/19 08:53 09:04 11:22 Temperature 98.4 F Pulse Rate 92 H 77 Pulse Rate [ From Monitor] Respiratory 24 Rate Blood Pressure 118/64 121/60 O2 Sat by Pulse 95 95 Oximetry 04/25/19 04/25/19 12:00 14:38 Temperature Pulse Rate 78 95 H Pulse Rate [ 78 From Monitor] Respiratory 18 Rate Blood Pressure 121/60 O2 Sat by Pulse Oximetry Constitutional: no acute distress, alert Eyes: icteric ENT: oropharynx moist Neck: supple, no lymphadenopathy, no JVD, other (large neck circumference) Effort: normal Ascultation: Bilateral: diminished breath sounds, rales, rhonchi (scant) Percussion: Bilateral: not dull Cardiovascular: regular rate and rhythm, other ( S1,S2) Gastrointestinal: normoactive bowel sounds, soft, non-tender Integumentary: normal Extremities: no cyanosis, pink and warm, pulses normal, no ischemia or petechiae, edema (right upper extremity) Neurologic: normal mental status, non-focal exam (grossly), pupils equal and round, CN II-XII normal, other (very weak, intermittent confusion, left extremity weaker than the right) Psychiatric: mood appropriate, affect normal CBC and BMP: 04/25/19 05:58 04/25/19 05:58 ABG, PT/INR, D-dimer: ABG POC ABG pH 7.401 (7.35-7.45) 04/07/19 12:57 ABG pH 7.388 pH Units (7.350-7.450) 04/06/19 05:20 POC ABG pCO2 41.5 (35-45) 04/07/19 12:57 ABG pCO2 38.5 mm Hg 04/06/19 05:20 POC ABG pO2 107 (80-105) H 04/07/19 12:57 ABG pO2 104.0 mm Hg (80.0-90.0) H 04/06/19 05:20 POC ABG HCO3 25.7 (22-26 mml/L) 04/07/19 12:57 POC ABG Total CO2 27 (23-27mmol/L) 04/07/19 12:57 POC ABG O2 Sat 98 04/07/19 12:57 ABG O2 Saturation 97.8 % (95.0-99.0) 04/06/19 05:20 PT/INR, D-dimer PT 15.3 Sec. (12.2-14.9) H 03/29/19 11:48 INR 1.24 (0.87-1.13) H 03/29/19 11:48 D-Dimer 4845.98 ng/mlDDU (0-234) H 03/28/19 12:00 Abnormal lab findings: Abnormal Labs 03/16/19 03/16/19 03/16/19 15:32 16:03 16:05 WBC 27.0 H RBC 5.55 H Hgb 15.7 H Hct 47.1 H MCV MCHC RDW Plt Count 75 L Lymph % (Auto) [place] % (Auto) Lymph # [place] # Seg Neutrophils % Seg Neuts % (Manual) 85.0 H Lymphocytes % (Manual) 2.0 L Monocytes % (Manual) Nucleated RBC % Seg Neutrophils # Seg Neutrophils # Man 23.0 H Lymphocytes # (Manual) 0.5 L Monocytes # (Manual) PT INR D-Dimer Heparin Anti-Xa Level POC ABG pH ABG pH POC ABG pCO2 POC ABG pO2 ABG pO2 ABG HCO3 ABG O2 Saturation ABG Base Excess ABG Hemoglobin Oxyhemoglobin Sodium 127 L Potassium Chloride 87.8 L Carbon Dioxide 17 L BUN 49 H Creatinine 5.8 H Glucose 150 H POC Glucose 118 H Lactic Acid Calcium 6.6 L Ionized Calcium Phosphorus Magnesium 1.10 L Iron TIBC Ferritin Total Bilirubin Direct Bilirubin AST ALT Alkaline Phosphatase Total Creatine Kinase 44556 H CK-MB (CK-2) Troponin T C-Reactive Protein Total Protein Albumin Triglycerides LDL Cholesterol Direct HDL Cholesterol Free T4 PTH Intact Urine WBC (Auto) Urine Creatinine Salicylates Acetaminophen Crossmatch 03/16/19 03/16/19 03/16/19 16:59 17:05 17:05 WBC RBC Hgb Hct MCV MCHC RDW Plt Count Lymph % (Auto) [place] % (Auto) Lymph # [place] # Seg Neutrophils % Seg Neuts % (Manual) Lymphocytes % (Manual) Monocytes % (Manual) Nucleated RBC % Seg Neutrophils # Seg Neutrophils # Man Lymphocytes # (Manual) Monocytes # (Manual) PT INR D-Dimer Heparin Anti-Xa Level POC ABG pH 7.297 L ABG pH POC ABG pCO2 33.0 L POC ABG pO2 ABG pO2 ABG HCO3 ABG O2 Saturation ABG Base Excess ABG Hemoglobin Oxyhemoglobin Sodium Potassium Chloride Carbon Dioxide BUN Creatinine Glucose POC Glucose Lactic Acid Calcium Ionized Calcium Phosphorus Magnesium Iron TIBC Ferritin Total Bilirubin Direct Bilirubin AST ALT Alkaline Phosphatase Total Creatine Kinase 67604 H CK-MB (CK-2) 83.1 H Troponin T C-Reactive Protein Total Protein Albumin Triglycerides LDL Cholesterol Direct HDL Cholesterol Free T4 0.72 L PTH Intact Urine WBC (Auto) Urine Creatinine Salicylates Acetaminophen Crossmatch 03/16/19 03/16/19 03/16/19 17:05 17:05 17:05 WBC RBC Hgb Hct MCV MCHC RDW Plt Count Lymph % (Auto) [place] % (Auto) Lymph # [place] # Seg Neutrophils % Seg Neuts % (Manual) Lymphocytes % (Manual) Monocytes % (Manual) Nucleated RBC % Seg Neutrophils # Seg Neutrophils # Man Lymphocytes # (Manual) Monocytes # (Manual) PT INR D-Dimer Heparin Anti-Xa Level POC ABG pH ABG pH POC ABG pCO2 POC ABG pO2 ABG pO2 ABG HCO3 ABG O2 Saturation ABG Base Excess ABG Hemoglobin Oxyhemoglobin Sodium Potassium Chloride Carbon Dioxide BUN Creatinine Glucose POC Glucose Lactic Acid 5.10 H* Calcium Ionized Calcium Phosphorus Magnesium Iron TIBC Ferritin Total Bilirubin Direct Bilirubin AST ALT Alkaline Phosphatase Total Creatine Kinase CK-MB (CK-2) Troponin T C-Reactive Protein Total Protein Albumin Triglycerides LDL Cholesterol Direct HDL Cholesterol Free T4 PTH Intact Urine WBC (Auto) Urine Creatinine Salicylates < 0.3 L Acetaminophen < 5.0 L Crossmatch 03/16/19 03/16/19 03/16/19 17:05 17:05 20:35 WBC RBC Hgb Hct MCV MCHC RDW Plt Count Lymph % (Auto) [place] % (Auto) Lymph # [place] # Seg Neutrophils % Seg Neuts % (Manual) Lymphocytes % (Manual) Monocytes % (Manual) Nucleated RBC % Seg Neutrophils # Seg Neutrophils # Man Lymphocytes # (Manual) Monocytes # (Manual) PT 15.9 H INR 1.30 H D-Dimer Heparin Anti-Xa Level POC ABG pH ABG pH POC ABG pCO2 POC ABG pO2 ABG pO2 ABG HCO3 ABG O2 Saturation ABG Base Excess ABG Hemoglobin Oxyhemoglobin Sodium Potassium Chloride Carbon Dioxide BUN Creatinine Glucose POC Glucose Lactic Acid 3.30 H* Calcium Ionized Calcium Phosphorus Magnesium Iron TIBC Ferritin Total Bilirubin 6.20 H Direct Bilirubin 5.9 H AST 800 H ALT 120 H Alkaline Phosphatase Total Creatine Kinase CK-MB (CK-2) Troponin T C-Reactive Protein Total Protein 4.4 L Albumin 2.4 L Triglycerides LDL Cholesterol Direct HDL Cholesterol Free T4 PTH Intact Urine WBC (Auto) Urine Creatinine Salicylates Acetaminophen Crossmatch 03/16/19 03/16/19 03/16/19 21:45 22:32 Unknown WBC RBC Hgb Hct MCV MCHC RDW Plt Count Lymph % (Auto) [place] % (Auto) Lymph # [place] # Seg Neutrophils % Seg Neuts % (Manual) Lymphocytes % (Manual) Monocytes % (Manual) Nucleated RBC % Seg Neutrophils # Seg Neutrophils # Man Lymphocytes # (Manual) Monocytes # (Manual) PT INR D-Dimer Heparin Anti-Xa Level POC ABG pH ABG pH POC ABG pCO2 POC ABG pO2 ABG pO2 ABG HCO3 ABG O2 Saturation ABG Base Excess ABG Hemoglobin Oxyhemoglobin Sodium Potassium Chloride Carbon Dioxide BUN Creatinine Glucose POC Glucose Lactic Acid 3.30 H* 3.00 H* Calcium Ionized Calcium Phosphorus Magnesium Iron TIBC Ferritin Total Bilirubin Direct Bilirubin AST ALT Alkaline Phosphatase Total Creatine Kinase CK-MB (CK-2) Troponin T 0.047 H D C-Reactive Protein Total Protein Albumin Triglycerides 395 H LDL Cholesterol Direct 10 L HDL Cholesterol 7 L Free T4 PTH Intact Urine WBC (Auto) Urine Creatinine Salicylates Acetaminophen Crossmatch 03/17/19 03/17/19 03/17/19 03:45 03:45 03:45 WBC RBC Hgb Hct MCV MCHC RDW Plt Count Lymph % (Auto) [place] % (Auto) Lymph # [place] # Seg Neutrophils % Seg Neuts % (Manual) Lymphocytes % (Manual) Monocytes % (Manual) Nucleated RBC % Seg Neutrophils # Seg Neutrophils # Man Lymphocytes # (Manual) Monocytes # (Manual) PT INR D-Dimer Heparin Anti-Xa Level POC ABG pH ABG pH POC ABG pCO2 POC ABG pO2 ABG pO2 ABG HCO3 ABG O2 Saturation ABG Base Excess ABG Hemoglobin Oxyhemoglobin Sodium 131 L Potassium Chloride 88.9 L Carbon Dioxide BUN 53 H Creatinine 7.1 H Glucose POC Glucose Lactic Acid 4.10 H* Calcium 5.4 L* D Ionized Calcium Phosphorus 7.30 H Magnesium 1.60 L Iron TIBC Ferritin Total Bilirubin 5.90 H Direct Bilirubin AST 801 H ALT 109 H Alkaline Phosphatase Total Creatine Kinase 10768 H 76226 H CK-MB (CK-2) 41.5 H Troponin T 0.054 H C-Reactive Protein Total Protein 4.5 L Albumin 2.0 L Triglycerides LDL Cholesterol Direct HDL Cholesterol Free T4 PTH Intact Urine WBC (Auto) Urine Creatinine Salicylates Acetaminophen Crossmatch 03/17/19 03/17/19 03/17/19 05:47 07:16 07:16 WBC RBC Hgb Hct MCV MCHC RDW Plt Count Lymph % (Auto) [place] % (Auto) Lymph # [place] # Seg Neutrophils % Seg Neuts % (Manual) Lymphocytes % (Manual) Monocytes % (Manual) Nucleated RBC % Seg Neutrophils # Seg Neutrophils # Man Lymphocytes # (Manual) Monocytes # (Manual) PT INR D-Dimer Heparin Anti-Xa Level POC ABG pH 7.193 L ABG pH POC ABG pCO2 45.2 H POC ABG pO2 65 L ABG pO2 ABG HCO3 ABG O2 Saturation ABG Base Excess ABG Hemoglobin Oxyhemoglobin Sodium Potassium Chloride Carbon Dioxide BUN Creatinine Glucose POC Glucose Lactic Acid 5.50 H* Calcium Ionized Calcium Phosphorus Magnesium Iron TIBC Ferritin Total Bilirubin Direct Bilirubin AST ALT Alkaline Phosphatase Total Creatine Kinase 20635 H CK-MB (CK-2) 54.3 H Troponin T 0.058 H C-Reactive Protein Total Protein Albumin Triglycerides LDL Cholesterol Direct HDL Cholesterol Free T4 PTH Intact Urine WBC (Auto) Urine Creatinine Salicylates Acetaminophen Crossmatch 03/17/19 03/17/19 03/17/19 11:52 12:51 13:01 WBC RBC Hgb Hct MCV MCHC RDW Plt Count Lymph % (Auto) [place] % (Auto) Lymph # [place] # Seg Neutrophils % Seg Neuts % (Manual) Lymphocytes % (Manual) Monocytes % (Manual) Nucleated RBC % Seg Neutrophils # Seg Neutrophils # Man Lymphocytes # (Manual) Monocytes # (Manual) PT INR D-Dimer Heparin Anti-Xa Level POC ABG pH 7.154 L ABG pH POC ABG pCO2 34.3 L POC ABG pO2 73 L ABG pO2 ABG HCO3 ABG O2 Saturation ABG Base Excess ABG Hemoglobin Oxyhemoglobin Sodium Potassium Chloride Carbon Dioxide BUN Creatinine Glucose POC Glucose 60 L Lactic Acid 8.20 H* Calcium Ionized Calcium Phosphorus Magnesium Iron TIBC Ferritin Total Bilirubin Direct Bilirubin AST ALT Alkaline Phosphatase Total Creatine Kinase CK-MB (CK-2) Troponin T C-Reactive Protein Total Protein Albumin Triglycerides LDL Cholesterol Direct HDL Cholesterol Free T4 PTH Intact Urine WBC (Auto) Urine Creatinine Salicylates Acetaminophen Crossmatch 03/17/19 03/17/19 03/17/19 14:37 14:37 14:37 WBC 29.3 H RBC Hgb Hct MCV MCHC RDW 15.8 H Plt Count 45 L Lymph % (Auto) [place] % (Auto) Lymph # [place] # Seg Neutrophils % Seg Neuts % (Manual) 81.0 H Lymphocytes % (Manual) 1.0 L Monocytes % (Manual) 15.0 H Nucleated RBC % Seg Neutrophils # Seg Neutrophils # Man 23.7 H Lymphocytes # (Manual) 0.3 L Monocytes # (Manual) 4.4 H PT INR D-Dimer Heparin Anti-Xa Level POC ABG pH ABG pH POC ABG pCO2 POC ABG pO2 ABG pO2 ABG HCO3 ABG O2 Saturation ABG Base Excess ABG Hemoglobin Oxyhemoglobin Sodium Potassium Chloride Carbon Dioxide BUN Creatinine Glucose POC Glucose Lactic Acid 4.90 H* Calcium Ionized Calcium Phosphorus Magnesium Iron TIBC Ferritin Total Bilirubin Direct Bilirubin AST ALT Alkaline Phosphatase Total Creatine Kinase CK-MB (CK-2) Troponin T C-Reactive Protein 24.90 H Total Protein Albumin Triglycerides LDL Cholesterol Direct HDL Cholesterol Free T4 PTH Intact Urine WBC (Auto) Urine Creatinine Salicylates Acetaminophen Crossmatch 03/17/19 03/17/19 03/17/19 16:05 16:05 17:02 WBC RBC Hgb Hct MCV MCHC RDW Plt Count Lymph % (Auto) [place] % (Auto) Lymph # [place] # Seg Neutrophils % Seg Neuts % (Manual) Lymphocytes % (Manual) Monocytes % (Manual) Nucleated RBC % Seg Neutrophils # Seg Neutrophils # Man Lymphocytes # (Manual) Monocytes # (Manual) PT INR D-Dimer Heparin Anti-Xa Level POC ABG pH 7.183 L ABG pH POC ABG pCO2 POC ABG pO2 65 L ABG pO2 ABG HCO3 ABG O2 Saturation ABG Base Excess ABG Hemoglobin Oxyhemoglobin Sodium Potassium Chloride Carbon Dioxide BUN Creatinine Glucose POC Glucose Lactic Acid Calcium Ionized Calcium Phosphorus Magnesium Iron TIBC Ferritin Total Bilirubin Direct Bilirubin AST ALT Alkaline Phosphatase Total Creatine Kinase CK-MB (CK-2) Troponin T C-Reactive Protein Total Protein Albumin Triglycerides LDL Cholesterol Direct HDL Cholesterol Free T4 PTH Intact Urine WBC (Auto) 30.0 H Urine Creatinine 106.6 H Salicylates Acetaminophen Crossmatch 03/18/19 03/18/19 03/18/19 05:12 05:16 05:53 WBC RBC Hgb Hct MCV MCHC RDW Plt Count Lymph % (Auto) [place] % (Auto) Lymph # [place] # Seg Neutrophils % Seg Neuts % (Manual) Lymphocytes % (Manual) Monocytes % (Manual) Nucleated RBC % Seg Neutrophils # Seg Neutrophils # Man Lymphocytes # (Manual) Monocytes # (Manual) PT INR D-Dimer Heparin Anti-Xa Level POC ABG pH 7.257 L ABG pH POC ABG pCO2 31.6 L POC ABG pO2 69 L ABG pO2 ABG HCO3 ABG O2 Saturation ABG Base Excess ABG Hemoglobin Oxyhemoglobin Sodium Potassium Chloride Carbon Dioxide BUN Creatinine Glucose POC Glucose 141 H Lactic Acid 5.00 H* Calcium Ionized Calcium Phosphorus Magnesium Iron TIBC Ferritin Total Bilirubin Direct Bilirubin AST ALT Alkaline Phosphatase Total Creatine Kinase CK-MB (CK-2) Troponin T C-Reactive Protein Total Protein Albumin Triglycerides LDL Cholesterol Direct HDL Cholesterol Free T4 PTH Intact Urine WBC (Auto) Urine Creatinine Salicylates Acetaminophen Crossmatch 03/18/19 03/18/19 03/18/19 06:57 08:40 08:40 WBC 31.7 H RBC Hgb Hct MCV MCHC RDW 15.5 H Plt Count 35 L Lymph % (Auto) [place] % (Auto) Lymph # [place] # Seg Neutrophils % Seg Neuts % (Manual) Lymphocytes % (Manual) Monocytes % (Manual) Nucleated RBC % Seg Neutrophils # Seg Neutrophils # Man Lymphocytes # (Manual) Monocytes # (Manual) PT INR D-Dimer Heparin Anti-Xa Level POC ABG pH ABG pH POC ABG pCO2 POC ABG pO2 ABG pO2 ABG HCO3 ABG O2 Saturation ABG Base Excess ABG Hemoglobin Oxyhemoglobin Sodium 132 L Potassium 5.5 H D Chloride 88.5 L Carbon Dioxide 18 L BUN 71 H Creatinine 8.1 H Glucose 205 H POC Glucose Lactic Acid 5.00 H* Calcium 4.1 L* D Ionized Calcium Phosphorus Magnesium 2.40 H Iron TIBC Ferritin Total Bilirubin 7.50 H Direct Bilirubin AST 1088 H ALT 159 H Alkaline Phosphatase 190 H Total Creatine Kinase 469996 H CK-MB (CK-2) Troponin T C-Reactive Protein Total Protein 4.7 L Albumin 1.8 L Triglycerides LDL Cholesterol Direct HDL Cholesterol Free T4 PTH Intact Urine WBC (Auto) Urine Creatinine Salicylates Acetaminophen Crossmatch 03/18/19 03/18/19 03/18/19 12:33 12:50 13:19 WBC RBC Hgb Hct MCV MCHC RDW Plt Count Lymph % (Auto) [place] % (Auto) Lymph # [place] # Seg Neutrophils % Seg Neuts % (Manual) Lymphocytes % (Manual) Monocytes % (Manual) Nucleated RBC % Seg Neutrophils # Seg Neutrophils # Man Lymphocytes # (Manual) Monocytes # (Manual) PT INR D-Dimer Heparin Anti-Xa Level POC ABG pH 7.282 L ABG pH POC ABG pCO2 POC ABG pO2 67 L ABG pO2 ABG HCO3 ABG O2 Saturation ABG Base Excess ABG Hemoglobin Oxyhemoglobin Sodium Potassium Chloride Carbon Dioxide BUN Creatinine Glucose POC Glucose 129 H Lactic Acid 3.30 H* Calcium Ionized Calcium Phosphorus Magnesium Iron TIBC Ferritin Total Bilirubin Direct Bilirubin AST ALT Alkaline Phosphatase Total Creatine Kinase CK-MB (CK-2) Troponin T C-Reactive Protein Total Protein Albumin Triglycerides LDL Cholesterol Direct HDL Cholesterol Free T4 PTH Intact Urine WBC (Auto) Urine Creatinine Salicylates Acetaminophen Crossmatch 03/18/19 03/18/19 03/18/19 13:19 16:50 18:11 WBC RBC Hgb Hct MCV MCHC RDW Plt Count Lymph % (Auto) [place] % (Auto) Lymph # [place] # Seg Neutrophils % Seg Neuts % (Manual) Lymphocytes % (Manual) Monocytes % (Manual) Nucleated RBC % Seg Neutrophils # Seg Neutrophils # Man Lymphocytes # (Manual) Monocytes # (Manual) PT INR D-Dimer Heparin Anti-Xa Level POC ABG pH ABG pH POC ABG pCO2 POC ABG pO2 59 L ABG pO2 ABG HCO3 ABG O2 Saturation ABG Base Excess ABG Hemoglobin Oxyhemoglobin Sodium Potassium Chloride Carbon Dioxide BUN Creatinine Glucose POC Glucose 151 H Lactic Acid Calcium 4.2 L* Ionized Calcium Phosphorus Magnesium Iron TIBC Ferritin Total Bilirubin Direct Bilirubin AST ALT Alkaline Phosphatase Total Creatine Kinase 889025 H CK-MB (CK-2) Troponin T C-Reactive Protein Total Protein Albumin Triglycerides LDL Cholesterol Direct HDL Cholesterol Free T4 PTH Intact Urine WBC (Auto) Urine Creatinine Salicylates Acetaminophen Crossmatch 03/18/19 03/18/19 03/19/19 18:20 23:39 01:42 WBC RBC Hgb Hct MCV MCHC RDW Plt Count Lymph % (Auto) [place] % (Auto) Lymph # [place] # Seg Neutrophils % Seg Neuts % (Manual) Lymphocytes % (Manual) Monocytes % (Manual) Nucleated RBC % Seg Neutrophils # Seg Neutrophils # Man Lymphocytes # (Manual) Monocytes # (Manual) PT INR D-Dimer Heparin Anti-Xa Level POC ABG pH 7.345 L ABG pH 7.285 L POC ABG pCO2 POC ABG pO2 59 L ABG pO2 44.0 L ABG HCO3 ABG O2 Saturation 70.9 L ABG Base Excess -5.7 L ABG Hemoglobin 11.9 L Oxyhemoglobin 69.6 L Sodium Potassium Chloride Carbon Dioxide BUN Creatinine Glucose POC Glucose 152 H Lactic Acid Calcium Ionized Calcium Phosphorus Magnesium Iron TIBC Ferritin Total Bilirubin Direct Bilirubin AST ALT Alkaline Phosphatase Total Creatine Kinase CK-MB (CK-2) Troponin T C-Reactive Protein Total Protein Albumin Triglycerides LDL Cholesterol Direct HDL Cholesterol Free T4 PTH Intact Urine WBC (Auto) Urine Creatinine Salicylates Acetaminophen Crossmatch 03/19/19 03/19/19 03/19/19 04:00 04:00 05:35 WBC 36.5 H RBC Hgb Hct MCV MCHC RDW 15.8 H Plt Count 35 L Lymph % (Auto) [place] % (Auto) Lymph # [place] # Seg Neutrophils % Seg Neuts % (Manual) Lymphocytes % (Manual) Monocytes % (Manual) Nucleated RBC % Seg Neutrophils # Seg Neutrophils # Man Lymphocytes # (Manual) Monocytes # (Manual) PT INR D-Dimer Heparin Anti-Xa Level POC ABG pH ABG pH 7.265 L POC ABG pCO2 POC ABG pO2 ABG pO2 35.4 L* ABG HCO3 ABG O2 Saturation 54.4 L ABG Base Excess -6.7 L ABG Hemoglobin 12.9 L Oxyhemoglobin 53.4 L Sodium 132 L Potassium 5.7 H Chloride 89.8 L Carbon Dioxide 19 L BUN 62 H Creatinine 6.4 H Glucose 151 H POC Glucose Lactic Acid Calcium 5.2 L* D Ionized Calcium Phosphorus Magnesium Iron TIBC Ferritin Total Bilirubin 7.80 H Direct Bilirubin AST 682 H ALT 130 H Alkaline Phosphatase 167 H Total Creatine Kinase CK-MB (CK-2) Troponin T C-Reactive Protein Total Protein 4.8 L Albumin 2.3 L Triglycerides LDL Cholesterol Direct HDL Cholesterol Free T4 PTH Intact Urine WBC (Auto) Urine Creatinine Salicylates Acetaminophen Crossmatch 03/19/19 03/19/19 03/19/19 05:49 09:16 09:50 WBC RBC Hgb Hct MCV MCHC RDW Plt Count Lymph % (Auto) [place] % (Auto) Lymph # [place] # Seg Neutrophils % Seg Neuts % (Manual) Lymphocytes % (Manual) Monocytes % (Manual) Nucleated RBC % Seg Neutrophils # Seg Neutrophils # Man Lymphocytes # (Manual) Monocytes # (Manual) PT INR D-Dimer Heparin Anti-Xa Level POC ABG pH 7.222 L ABG pH POC ABG pCO2 56.6 H POC ABG pO2 ABG pO2 ABG HCO3 ABG O2 Saturation ABG Base Excess ABG Hemoglobin Oxyhemoglobin Sodium Potassium Chloride Carbon Dioxide BUN Creatinine Glucose POC Glucose 154 H Lactic Acid 2.70 H* Calcium Ionized Calcium Phosphorus Magnesium Iron TIBC Ferritin Total Bilirubin Direct Bilirubin AST ALT Alkaline Phosphatase Total Creatine Kinase CK-MB (CK-2) Troponin T C-Reactive Protein Total Protein Albumin Triglycerides LDL Cholesterol Direct HDL Cholesterol Free T4 PTH Intact Urine WBC (Auto) Urine Creatinine Salicylates Acetaminophen Crossmatch 03/19/19 03/19/19 03/19/19 09:50 11:28 17:58 WBC RBC Hgb Hct MCV MCHC RDW Plt Count Lymph % (Auto) [place] % (Auto) Lymph # [place] # Seg Neutrophils % Seg Neuts % (Manual) Lymphocytes % (Manual) Monocytes % (Manual) Nucleated RBC % Seg Neutrophils # Seg Neutrophils # Man Lymphocytes # (Manual) Monocytes # (Manual) PT INR D-Dimer Heparin Anti-Xa Level POC ABG pH 7.250 L ABG pH POC ABG pCO2 52.6 H POC ABG pO2 ABG pO2 ABG HCO3 ABG O2 Saturation ABG Base Excess ABG Hemoglobin Oxyhemoglobin Sodium Potassium Chloride Carbon Dioxide BUN Creatinine Glucose POC Glucose 160 H Lactic Acid Calcium Ionized Calcium Phosphorus Magnesium Iron TIBC Ferritin Total Bilirubin Direct Bilirubin AST ALT Alkaline Phosphatase Total Creatine Kinase 95224 H CK-MB (CK-2) Troponin T C-Reactive Protein Total Protein Albumin Triglycerides LDL Cholesterol Direct HDL Cholesterol Free T4 PTH Intact Urine WBC (Auto) Urine Creatinine Salicylates Acetaminophen Crossmatch 03/19/19 03/19/19 03/20/19 19:48 21:03 02:16 WBC RBC Hgb Hct MCV MCHC RDW Plt Count Lymph % (Auto) [place] % (Auto) Lymph # [place] # Seg Neutrophils % Seg Neuts % (Manual) Lymphocytes % (Manual) Monocytes % (Manual) Nucleated RBC % Seg Neutrophils # Seg Neutrophils # Man Lymphocytes # (Manual) Monocytes # (Manual) PT INR D-Dimer Heparin Anti-Xa Level POC ABG pH 7.279 L ABG pH POC ABG pCO2 50.3 H POC ABG pO2 129 H ABG pO2 ABG HCO3 ABG O2 Saturation ABG Base Excess ABG Hemoglobin Oxyhemoglobin Sodium Potassium Chloride Carbon Dioxide BUN Creatinine Glucose POC Glucose 119 H 119 H Lactic Acid Calcium Ionized Calcium Phosphorus Magnesium Iron TIBC Ferritin Total Bilirubin Direct Bilirubin AST ALT Alkaline Phosphatase Total Creatine Kinase CK-MB (CK-2) Troponin T C-Reactive Protein Total Protein Albumin Triglycerides LDL Cholesterol Direct HDL Cholesterol Free T4 PTH Intact Urine WBC (Auto) Urine Creatinine Salicylates Acetaminophen Crossmatch 03/20/19 03/20/19 03/20/19 04:23 05:05 09:30 WBC 36.3 H RBC Hgb Hct MCV MCHC RDW 15.5 H Plt Count 29 L Lymph % (Auto) [place] % (Auto) Lymph # [place] # Seg Neutrophils % Seg Neuts % (Manual) Lymphocytes % (Manual) Monocytes % (Manual) Nucleated RBC % Seg Neutrophils # Seg Neutrophils # Man Lymphocytes # (Manual) Monocytes # (Manual) PT INR D-Dimer Heparin Anti-Xa Level POC ABG pH ABG pH POC ABG pCO2 POC ABG pO2 280 H ABG pO2 ABG HCO3 ABG O2 Saturation ABG Base Excess ABG Hemoglobin Oxyhemoglobin Sodium Potassium Chloride Carbon Dioxide BUN Creatinine Glucose POC Glucose 115 H Lactic Acid Calcium Ionized Calcium Phosphorus Magnesium Iron TIBC Ferritin Total Bilirubin Direct Bilirubin AST ALT Alkaline Phosphatase Total Creatine Kinase CK-MB (CK-2) Troponin T C-Reactive Protein Total Protein Albumin Triglycerides LDL Cholesterol Direct HDL Cholesterol Free T4 PTH Intact Urine WBC (Auto) Urine Creatinine Salicylates Acetaminophen Crossmatch 03/20/19 03/20/19 03/20/19 09:30 09:30 11:34 WBC RBC Hgb Hct MCV MCHC RDW Plt Count Lymph % (Auto) [place] % (Auto) Lymph # [place] # Seg Neutrophils % Seg Neuts % (Manual) Lymphocytes % (Manual) Monocytes % (Manual) Nucleated RBC % Seg Neutrophils # Seg Neutrophils # Man Lymphocytes # (Manual) Monocytes # (Manual) PT INR D-Dimer Heparin Anti-Xa Level POC ABG pH ABG pH POC ABG pCO2 POC ABG pO2 ABG pO2 ABG HCO3 ABG O2 Saturation ABG Base Excess ABG Hemoglobin Oxyhemoglobin Sodium 131 L Potassium Chloride 92.3 L Carbon Dioxide 20 L BUN 68 H Creatinine 6.1 H Glucose 164 H POC Glucose 141 H Lactic Acid Calcium 5.3 L* Ionized Calcium Phosphorus Magnesium Iron TIBC Ferritin Total Bilirubin 9.50 H Direct Bilirubin AST 381 H ALT 116 H Alkaline Phosphatase 255 H Total Creatine Kinase 75108 H CK-MB (CK-2) Troponin T C-Reactive Protein Total Protein 5.1 L Albumin 2.3 L Triglycerides LDL Cholesterol Direct HDL Cholesterol Free T4 PTH Intact Urine WBC (Auto) Urine Creatinine Salicylates Acetaminophen Crossmatch 03/20/19 03/20/19 03/20/19 14:41 14:45 18:50 WBC RBC Hgb Hct MCV MCHC RDW Plt Count Lymph % (Auto) [place] % (Auto) Lymph # [place] # Seg Neutrophils % Seg Neuts % (Manual) Lymphocytes % (Manual) Monocytes % (Manual) Nucleated RBC % Seg Neutrophils # Seg Neutrophils # Man Lymphocytes # (Manual) Monocytes # (Manual) PT INR D-Dimer Heparin Anti-Xa Level POC ABG pH ABG pH POC ABG pCO2 POC ABG pO2 ABG pO2 ABG HCO3 ABG O2 Saturation ABG Base Excess ABG Hemoglobin Oxyhemoglobin Sodium Potassium Chloride Carbon Dioxide BUN Creatinine Glucose POC Glucose 117 H Lactic Acid 2.90 H* Calcium Ionized Calcium Phosphorus Magnesium Iron TIBC Ferritin Total Bilirubin Direct Bilirubin AST ALT Alkaline Phosphatase Total Creatine Kinase CK-MB (CK-2) Troponin T C-Reactive Protein 13.30 H Total Protein Albumin Triglycerides LDL Cholesterol Direct HDL Cholesterol Free T4 PTH Intact Urine WBC (Auto) Urine Creatinine Salicylates Acetaminophen Crossmatch 03/20/19 03/21/19 03/21/19 21:55 04:26 04:26 WBC 37.8 H RBC Hgb Hct MCV MCHC RDW 15.4 H Plt Count 36 L Lymph % (Auto) [place] % (Auto) Lymph # [place] # Seg Neutrophils % Seg Neuts % (Manual) 93.0 H Lymphocytes % (Manual) 3.0 L Monocytes % (Manual) Nucleated RBC % 1.0 H Seg Neutrophils # 34.6 H Seg Neutrophils # Man 35.2 H Lymphocytes # (Manual) 1.1 L Monocytes # (Manual) PT INR D-Dimer Heparin Anti-Xa Level POC ABG pH ABG pH POC ABG pCO2 POC ABG pO2 ABG pO2 ABG HCO3 ABG O2 Saturation ABG Base Excess ABG Hemoglobin Oxyhemoglobin Sodium 131 L Potassium Chloride 90.7 L Carbon Dioxide 21 L BUN 69 H Creatinine 5.7 H Glucose 170 H POC Glucose 128 H Lactic Acid Calcium 6.1 L D Ionized Calcium Phosphorus Magnesium Iron TIBC Ferritin Total Bilirubin 9.50 H Direct Bilirubin AST 308 H ALT 124 H Alkaline Phosphatase 327 H Total Creatine Kinase 26060 H CK-MB (CK-2) Troponin T C-Reactive Protein Total Protein 5.7 L Albumin 2.6 L Triglycerides LDL Cholesterol Direct HDL Cholesterol Free T4 PTH Intact Urine WBC (Auto) Urine Creatinine Salicylates Acetaminophen Crossmatch 03/21/19 03/21/19 03/21/19 05:17 05:39 08:29 WBC RBC Hgb Hct MCV MCHC RDW Plt Count Lymph % (Auto) [place] % (Auto) Lymph # [place] # Seg Neutrophils % Seg Neuts % (Manual) Lymphocytes % (Manual) Monocytes % (Manual) Nucleated RBC % Seg Neutrophils # Seg Neutrophils # Man Lymphocytes # (Manual) Monocytes # (Manual) PT INR D-Dimer Heparin Anti-Xa Level POC ABG pH ABG pH POC ABG pCO2 POC ABG pO2 209 H ABG pO2 ABG HCO3 ABG O2 Saturation ABG Base Excess ABG Hemoglobin Oxyhemoglobin Sodium Potassium Chloride Carbon Dioxide BUN Creatinine Glucose POC Glucose 145 H Lactic Acid Calcium Ionized Calcium Phosphorus Magnesium Iron TIBC Ferritin Total Bilirubin Direct Bilirubin AST ALT Alkaline Phosphatase Total Creatine Kinase 03040 H CK-MB (CK-2) Troponin T C-Reactive Protein Total Protein Albumin Triglycerides LDL Cholesterol Direct HDL Cholesterol Free T4 PTH Intact Urine WBC (Auto) Urine Creatinine Salicylates Acetaminophen Crossmatch 03/21/19 03/21/19 03/21/19 08:29 11:43 12:00 WBC RBC Hgb Hct MCV MCHC RDW Plt Count Lymph % (Auto) [place] % (Auto) Lymph # [place] # Seg Neutrophils % Seg Neuts % (Manual) Lymphocytes % (Manual) Monocytes % (Manual) Nucleated RBC % Seg Neutrophils # Seg Neutrophils # Man Lymphocytes # (Manual) Monocytes # (Manual) PT INR D-Dimer Heparin Anti-Xa Level POC ABG pH ABG pH POC ABG pCO2 POC ABG pO2 ABG pO2 ABG HCO3 ABG O2 Saturation ABG Base Excess ABG Hemoglobin Oxyhemoglobin Sodium Potassium Chloride Carbon Dioxide BUN Creatinine Glucose POC Glucose 123 H Lactic Acid 2.60 H* 2.20 H* Calcium Ionized Calcium Phosphorus Magnesium Iron TIBC Ferritin Total Bilirubin Direct Bilirubin AST ALT Alkaline Phosphatase Total Creatine Kinase CK-MB (CK-2) Troponin T C-Reactive Protein Total Protein Albumin Triglycerides LDL Cholesterol Direct HDL Cholesterol Free T4 PTH Intact Urine WBC (Auto) Urine Creatinine Salicylates Acetaminophen Crossmatch 03/21/19 03/21/19 03/21/19 14:11 18:28 19:32 WBC RBC Hgb Hct MCV MCHC RDW Plt Count Lymph % (Auto) [place] % (Auto) Lymph # [place] # Seg Neutrophils % Seg Neuts % (Manual) Lymphocytes % (Manual) Monocytes % (Manual) Nucleated RBC % Seg Neutrophils # Seg Neutrophils # Man Lymphocytes # (Manual) Monocytes # (Manual) PT INR D-Dimer Heparin Anti-Xa Level POC ABG pH 7.293 L ABG pH POC ABG pCO2 POC ABG pO2 ABG pO2 ABG HCO3 ABG O2 Saturation ABG Base Excess ABG Hemoglobin Oxyhemoglobin Sodium Potassium Chloride Carbon Dioxide BUN Creatinine Glucose POC Glucose 153 H Lactic Acid 2.10 H* Calcium Ionized Calcium Phosphorus Magnesium Iron TIBC Ferritin Total Bilirubin Direct Bilirubin AST ALT Alkaline Phosphatase Total Creatine Kinase CK-MB (CK-2) Troponin T C-Reactive Protein Total Protein Albumin Triglycerides LDL Cholesterol Direct HDL Cholesterol Free T4 PTH Intact Urine WBC (Auto) Urine Creatinine Salicylates Acetaminophen Crossmatch 03/21/19 03/22/19 03/22/19 23:38 05:08 05:51 WBC RBC Hgb Hct MCV MCHC RDW Plt Count Lymph % (Auto) [place] % (Auto) Lymph # [place] # Seg Neutrophils % Seg Neuts % (Manual) Lymphocytes % (Manual) Monocytes % (Manual) Nucleated RBC % Seg Neutrophils # Seg Neutrophils # Man Lymphocytes # (Manual) Monocytes # (Manual) PT INR D-Dimer Heparin Anti-Xa Level POC ABG pH 7.283 L ABG pH POC ABG pCO2 POC ABG pO2 53 L ABG pO2 ABG HCO3 ABG O2 Saturation ABG Base Excess ABG Hemoglobin Oxyhemoglobin Sodium Potassium Chloride Carbon Dioxide BUN Creatinine Glucose POC Glucose 149 H 131 H Lactic Acid Calcium Ionized Calcium Phosphorus Magnesium Iron TIBC Ferritin Total Bilirubin Direct Bilirubin AST ALT Alkaline Phosphatase Total Creatine Kinase CK-MB (CK-2) Troponin T C-Reactive Protein Total Protein Albumin Triglycerides LDL Cholesterol Direct HDL Cholesterol Free T4 PTH Intact Urine WBC (Auto) Urine Creatinine Salicylates Acetaminophen Crossmatch 03/22/19 03/22/19 03/22/19 08:00 08:00 18:19 WBC 36.7 H RBC Hgb 11.0 L Hct 33.5 L MCV MCHC RDW 15.5 H Plt Count 43 L Lymph % (Auto) [place] % (Auto) Lymph # [place] # Seg Neutrophils % Seg Neuts % (Manual) 87.0 H Lymphocytes % (Manual) 7.0 L Monocytes % (Manual) Nucleated RBC % Seg Neutrophils # Seg Neutrophils # Man 31.9 H Lymphocytes # (Manual) Monocytes # (Manual) PT INR D-Dimer Heparin Anti-Xa Level POC ABG pH ABG pH POC ABG pCO2 46.4 H POC ABG pO2 108 H ABG pO2 ABG HCO3 ABG O2 Saturation ABG Base Excess ABG Hemoglobin Oxyhemoglobin Sodium 132 L Potassium 5.6 H Chloride 89.6 L Carbon Dioxide 20 L BUN 101 H Creatinine 7.4 H Glucose 124 H POC Glucose Lactic Acid Calcium 5.2 L* Ionized Calcium Phosphorus Magnesium Iron TIBC Ferritin Total Bilirubin 2.80 H Direct Bilirubin AST 119 H ALT 86 H Alkaline Phosphatase 245 H Total Creatine Kinase CK-MB (CK-2) Troponin T C-Reactive Protein Total Protein 5.6 L Albumin 2.5 L Triglycerides LDL Cholesterol Direct HDL Cholesterol Free T4 PTH Intact Urine WBC (Auto) Urine Creatinine Salicylates Acetaminophen Crossmatch 03/22/19 03/23/19 03/23/19 20:37 04:49 05:28 WBC 35.9 H RBC Hgb 10.8 L Hct 33.2 L MCV MCHC RDW 15.5 H Plt Count 49 L Lymph % (Auto) [place] % (Auto) Lymph # [place] # Seg Neutrophils % Seg Neuts % (Manual) 81.0 H Lymphocytes % (Manual) 3.5 L Monocytes % (Manual) Nucleated RBC % Seg Neutrophils # Seg Neutrophils # Man 29.1 H Lymphocytes # (Manual) Monocytes # (Manual) 1.4 H PT INR D-Dimer Heparin Anti-Xa Level POC ABG pH 7.296 L ABG pH POC ABG pCO2 46.2 H POC ABG pO2 ABG pO2 ABG HCO3 ABG O2 Saturation ABG Base Excess ABG Hemoglobin Oxyhemoglobin Sodium 129 L Potassium 5.2 H Chloride 91.1 L Carbon Dioxide BUN 91 H Creatinine 6.6 H Glucose 190 H POC Glucose Lactic Acid Calcium 5.3 L* Ionized Calcium Phosphorus Magnesium Iron TIBC Ferritin Total Bilirubin 1.80 H Direct Bilirubin AST 80 H ALT 62 H Alkaline Phosphatase 209 H Total Creatine Kinase 9758 H CK-MB (CK-2) Troponin T C-Reactive Protein Total Protein 5.2 L Albumin 2.2 L Triglycerides LDL Cholesterol Direct HDL Cholesterol Free T4 PTH Intact Urine WBC (Auto) Urine Creatinine Salicylates Acetaminophen Crossmatch 03/23/19 03/23/19 03/23/19 05:28 05:31 11:33 WBC 29.7 H RBC 3.59 L Hgb 10.1 L Hct 31.1 L MCV MCHC RDW 15.4 H Plt Count 47 L Lymph % (Auto) [place] % (Auto) Lymph # [place] # Seg Neutrophils % Seg Neuts % (Manual) 89.0 H Lymphocytes % (Manual) 6.0 L Monocytes % (Manual) Nucleated RBC % 1.0 H Seg Neutrophils # Seg Neutrophils # Man 26.4 H Lymphocytes # (Manual) Monocytes # (Manual) PT INR D-Dimer Heparin Anti-Xa Level POC ABG pH ABG pH POC ABG pCO2 POC ABG pO2 ABG pO2 ABG HCO3 ABG O2 Saturation ABG Base Excess ABG Hemoglobin Oxyhemoglobin Sodium Potassium Chloride Carbon Dioxide BUN Creatinine Glucose POC Glucose 122 H 113 H Lactic Acid Calcium Ionized Calcium Phosphorus Magnesium Iron TIBC Ferritin Total Bilirubin Direct Bilirubin AST ALT Alkaline Phosphatase Total Creatine Kinase CK-MB (CK-2) Troponin T C-Reactive Protein Total Protein Albumin Triglycerides LDL Cholesterol Direct HDL Cholesterol Free T4 PTH Intact Urine WBC (Auto) Urine Creatinine Salicylates Acetaminophen Crossmatch 03/23/19 03/24/19 03/24/19 17:47 00:00 04:50 WBC 35.0 H RBC Hgb 10.4 L Hct 32.4 L MCV MCHC RDW Plt Count 60 L Lymph % (Auto) [place] % (Auto) Lymph # [place] # Seg Neutrophils % Seg Neuts % (Manual) 93.0 H Lymphocytes % (Manual) 5.0 L Monocytes % (Manual) Nucleated RBC % 7.0 H Seg Neutrophils # Seg Neutrophils # Man 32.6 H Lymphocytes # (Manual) Monocytes # (Manual) PT INR D-Dimer Heparin Anti-Xa Level POC ABG pH ABG pH POC ABG pCO2 POC ABG pO2 ABG pO2 ABG HCO3 ABG O2 Saturation ABG Base Excess ABG Hemoglobin Oxyhemoglobin Sodium Potassium Chloride Carbon Dioxide BUN Creatinine Glucose POC Glucose 111 H 108 H Lactic Acid Calcium Ionized Calcium Phosphorus Magnesium Iron TIBC Ferritin Total Bilirubin Direct Bilirubin AST ALT Alkaline Phosphatase Total Creatine Kinase CK-MB (CK-2) Troponin T C-Reactive Protein Total Protein Albumin Triglycerides LDL Cholesterol Direct HDL Cholesterol Free T4 PTH Intact Urine WBC (Auto) Urine Creatinine Salicylates Acetaminophen Crossmatch 03/24/19 03/24/19 03/24/19 04:50 05:06 12:55 WBC RBC Hgb Hct MCV MCHC RDW Plt Count Lymph % (Auto) [place] % (Auto) Lymph # [place] # Seg Neutrophils % Seg Neuts % (Manual) Lymphocytes % (Manual) Monocytes % (Manual) Nucleated RBC % Seg Neutrophils # Seg Neutrophils # Man Lymphocytes # (Manual) Monocytes # (Manual) PT INR D-Dimer Heparin Anti-Xa Level POC ABG pH ABG pH POC ABG pCO2 POC ABG pO2 ABG pO2 ABG HCO3 ABG O2 Saturation ABG Base Excess ABG Hemoglobin Oxyhemoglobin Sodium 134 L Potassium 5.1 H Chloride 95.3 L Carbon Dioxide 21 L BUN 85 H Creatinine 6.4 H Glucose 109 H POC Glucose 112 H 110 H Lactic Acid Calcium 5.8 L* Ionized Calcium Phosphorus Magnesium Iron TIBC Ferritin Total Bilirubin Direct Bilirubin AST ALT Alkaline Phosphatase Total Creatine Kinase 5747 H CK-MB (CK-2) Troponin T C-Reactive Protein Total Protein Albumin Triglycerides LDL Cholesterol Direct HDL Cholesterol Free T4 PTH Intact Urine WBC (Auto) Urine Creatinine Salicylates Acetaminophen Crossmatch 03/24/19 03/25/19 03/25/19 23:29 05:00 05:00 WBC RBC Hgb Hct MCV MCHC RDW Plt Count Lymph % (Auto) [place] % (Auto) Lymph # [place] # Seg Neutrophils % Seg Neuts % (Manual) Lymphocytes % (Manual) Monocytes % (Manual) Nucleated RBC % Seg Neutrophils # Seg Neutrophils # Man Lymphocytes # (Manual) Monocytes # (Manual) PT INR D-Dimer Heparin Anti-Xa Level POC ABG pH ABG pH POC ABG pCO2 POC ABG pO2 ABG pO2 ABG HCO3 ABG O2 Saturation ABG Base Excess ABG Hemoglobin Oxyhemoglobin Sodium 133 L Potassium Chloride 94.0 L Carbon Dioxide 21 L BUN 81 H Creatinine 6.4 H Glucose POC Glucose 109 H Lactic Acid Calcium 5.5 L* Ionized Calcium Phosphorus Magnesium Iron TIBC Ferritin Total Bilirubin Direct Bilirubin AST 80 H ALT Alkaline Phosphatase 202 H Total Creatine Kinase 3589 H CK-MB (CK-2) Troponin T C-Reactive Protein Total Protein 5.3 L Albumin 2.4 L Triglycerides LDL Cholesterol Direct HDL Cholesterol Free T4 PTH Intact 329.9 H Urine WBC (Auto) Urine Creatinine Salicylates Acetaminophen Crossmatch 03/25/19 03/25/19 03/26/19 05:00 06:30 04:30 WBC 23.3 H RBC 3.61 L Hgb 10.2 L Hct 31.2 L MCV MCHC RDW Plt Count 57 L Lymph % (Auto) [place] % (Auto) Lymph # [place] # Seg Neutrophils % Seg Neuts % (Manual) 92.0 H Lymphocytes % (Manual) 6.0 L Monocytes % (Manual) Nucleated RBC % Seg Neutrophils # Seg Neutrophils # Man 21.4 H Lymphocytes # (Manual) Monocytes # (Manual) PT INR D-Dimer Heparin Anti-Xa Level POC ABG pH ABG pH 7.326 L POC ABG pCO2 POC ABG pO2 ABG pO2 109.5 H 137.4 H ABG HCO3 18.8 L 18.6 L ABG O2 Saturation ABG Base Excess -4.4 L -6.8 L ABG Hemoglobin 10.1 L 9.9 L Oxyhemoglobin Sodium Potassium Chloride Carbon Dioxide BUN Creatinine Glucose POC Glucose Lactic Acid Calcium Ionized Calcium Phosphorus Magnesium Iron TIBC Ferritin Total Bilirubin Direct Bilirubin AST ALT Alkaline Phosphatase Total Creatine Kinase CK-MB (CK-2) Troponin T C-Reactive Protein Total Protein Albumin Triglycerides LDL Cholesterol Direct HDL Cholesterol Free T4 PTH Intact Urine WBC (Auto) Urine Creatinine Salicylates Acetaminophen Crossmatch 03/26/19 03/26/19 03/26/19 23:22 Unknown Unknown WBC 19.5 H RBC 3.44 L Hgb 9.8 L Hct 29.9 L MCV MCHC RDW Plt Count 85 L Lymph % (Auto) [place] % (Auto) Lymph # [place] # Seg Neutrophils % Seg Neuts % (Manual) 95.0 H Lymphocytes % (Manual) 3.0 L Monocytes % (Manual) Nucleated RBC % Seg Neutrophils # Seg Neutrophils # Man 18.5 H Lymphocytes # (Manual) 0.6 L Monocytes # (Manual) PT INR D-Dimer Heparin Anti-Xa Level POC ABG pH ABG pH POC ABG pCO2 POC ABG pO2 ABG pO2 ABG HCO3 ABG O2 Saturation ABG Base Excess ABG Hemoglobin Oxyhemoglobin Sodium 135 L Potassium 5.2 H D Chloride 92.2 L Carbon Dioxide 18 L BUN 109 H Creatinine 8.5 H Glucose 117 H POC Glucose 69 L Lactic Acid Calcium 4.5 L* D Ionized Calcium Phosphorus Magnesium Iron TIBC Ferritin Total Bilirubin Direct Bilirubin AST ALT Alkaline Phosphatase Total Creatine Kinase 4527 H CK-MB (CK-2) Troponin T C-Reactive Protein Total Protein Albumin Triglycerides LDL Cholesterol Direct HDL Cholesterol Free T4 PTH Intact Urine WBC (Auto) Urine Creatinine Salicylates Acetaminophen Crossmatch 03/27/19 03/27/19 03/27/19 04:30 04:30 09:00 WBC 19.2 H RBC 3.42 L Hgb 9.9 L Hct 30.0 L MCV MCHC RDW Plt Count 84 L Lymph % (Auto) [place] % (Auto) Lymph # [place] # Seg Neutrophils % Seg Neuts % (Manual) Lymphocytes % (Manual) Monocytes % (Manual) Nucleated RBC % Seg Neutrophils # Seg Neutrophils # Man Lymphocytes # (Manual) Monocytes # (Manual) PT INR D-Dimer Heparin Anti-Xa Level POC ABG pH ABG pH POC ABG pCO2 POC ABG pO2 ABG pO2 ABG HCO3 ABG O2 Saturation ABG Base Excess ABG Hemoglobin Oxyhemoglobin Sodium 135 L Potassium Chloride 93.5 L Carbon Dioxide BUN 84 H Creatinine 7.1 H Glucose POC Glucose Lactic Acid Calcium 5.0 L* Ionized Calcium Phosphorus Magnesium Iron TIBC Ferritin Total Bilirubin Direct Bilirubin AST 78 H ALT Alkaline Phosphatase 135 H Total Creatine Kinase 4677 H CK-MB (CK-2) Troponin T C-Reactive Protein Total Protein 4.8 L Albumin 2.3 L Triglycerides 409 H LDL Cholesterol Direct HDL Cholesterol Free T4 PTH Intact Urine WBC (Auto) Urine Creatinine Salicylates Acetaminophen Crossmatch 03/27/19 03/27/19 03/27/19 12:37 14:15 14:15 WBC RBC Hgb 9.7 L Hct 29.5 L MCV MCHC RDW Plt Count 87 L Lymph % (Auto) [place] % (Auto) Lymph # [place] # Seg Neutrophils % Seg Neuts % (Manual) Lymphocytes % (Manual) Monocytes % (Manual) Nucleated RBC % Seg Neutrophils # Seg Neutrophils # Man Lymphocytes # (Manual) Monocytes # (Manual) PT 15.9 H INR 1.30 H D-Dimer Heparin Anti-Xa Level POC ABG pH ABG pH POC ABG pCO2 POC ABG pO2 ABG pO2 ABG HCO3 ABG O2 Saturation ABG Base Excess ABG Hemoglobin Oxyhemoglobin Sodium Potassium Chloride Carbon Dioxide BUN Creatinine Glucose POC Glucose 129 H Lactic Acid Calcium Ionized Calcium Phosphorus Magnesium Iron TIBC Ferritin Total Bilirubin Direct Bilirubin AST ALT Alkaline Phosphatase Total Creatine Kinase CK-MB (CK-2) Troponin T C-Reactive Protein Total Protein Albumin Triglycerides LDL Cholesterol Direct HDL Cholesterol Free T4 PTH Intact Urine WBC (Auto) Urine Creatinine Salicylates Acetaminophen Crossmatch 03/27/19 03/27/19 03/27/19 18:00 19:22 19:23 WBC RBC Hgb Hct MCV MCHC RDW Plt Count Lymph % (Auto) [place] % (Auto) Lymph # [place] # Seg Neutrophils % Seg Neuts % (Manual) Lymphocytes % (Manual) Monocytes % (Manual) Nucleated RBC % Seg Neutrophils # Seg Neutrophils # Man Lymphocytes # (Manual) Monocytes # (Manual) PT INR D-Dimer Heparin Anti-Xa Level < 0.10 L POC ABG pH ABG pH POC ABG pCO2 POC ABG pO2 ABG pO2 ABG HCO3 ABG O2 Saturation ABG Base Excess ABG Hemoglobin Oxyhemoglobin Sodium Potassium Chloride Carbon Dioxide BUN Creatinine Glucose POC Glucose 121 H Lactic Acid Calcium Ionized Calcium Phosphorus Magnesium Iron TIBC Ferritin Total Bilirubin Direct Bilirubin AST ALT Alkaline Phosphatase Total Creatine Kinase 4517 H CK-MB (CK-2) Troponin T C-Reactive Protein Total Protein Albumin Triglycerides LDL Cholesterol Direct HDL Cholesterol Free T4 PTH Intact Urine WBC (Auto) Urine Creatinine Salicylates Acetaminophen Crossmatch 03/27/19 03/27/19 03/28/19 22:10 23:52 03:49 WBC RBC Hgb Hct MCV MCHC RDW Plt Count Lymph % (Auto) [place] % (Auto) Lymph # [place] # Seg Neutrophils % Seg Neuts % (Manual) Lymphocytes % (Manual) Monocytes % (Manual) Nucleated RBC % Seg Neutrophils # Seg Neutrophils # Man Lymphocytes # (Manual) Monocytes # (Manual) PT INR D-Dimer Heparin Anti-Xa Level POC ABG pH 7.338 L ABG pH POC ABG pCO2 33.1 L POC ABG pO2 ABG pO2 ABG HCO3 ABG O2 Saturation ABG Base Excess ABG Hemoglobin Oxyhemoglobin Sodium Potassium Chloride Carbon Dioxide BUN Creatinine Glucose POC Glucose 113 H 117 H Lactic Acid Calcium Ionized Calcium Phosphorus Magnesium Iron TIBC Ferritin Total Bilirubin Direct Bilirubin AST ALT Alkaline Phosphatase Total Creatine Kinase CK-MB (CK-2) Troponin T C-Reactive Protein Total Protein Albumin Triglycerides LDL Cholesterol Direct HDL Cholesterol Free T4 PTH Intact Urine WBC (Auto) Urine Creatinine Salicylates Acetaminophen Crossmatch 03/28/19 03/28/19 03/28/19 05:13 05:13 06:18 WBC RBC Hgb Hct MCV MCHC RDW Plt Count Lymph % (Auto) [place] % (Auto) Lymph # [place] # Seg Neutrophils % Seg Neuts % (Manual) Lymphocytes % (Manual) Monocytes % (Manual) Nucleated RBC % Seg Neutrophils # Seg Neutrophils # Man Lymphocytes # (Manual) Monocytes # (Manual) PT INR D-Dimer Heparin Anti-Xa Level 0.23 L POC ABG pH ABG pH POC ABG pCO2 POC ABG pO2 ABG pO2 ABG HCO3 ABG O2 Saturation ABG Base Excess ABG Hemoglobin Oxyhemoglobin Sodium 135 L Potassium 5.5 H D Chloride 95.1 L Carbon Dioxide 16 L D BUN 129 H Creatinine 9.3 H Glucose 158 H POC Glucose 202 H Lactic Acid Calcium 4.0 L* D Ionized Calcium Phosphorus 12.40 H Magnesium Iron TIBC Ferritin Total Bilirubin Direct Bilirubin AST ALT Alkaline Phosphatase Total Creatine Kinase 4266 H CK-MB (CK-2) Troponin T C-Reactive Protein Total Protein Albumin Triglycerides LDL Cholesterol Direct HDL Cholesterol Free T4 PTH Intact Urine WBC (Auto) Urine Creatinine Salicylates Acetaminophen Crossmatch 03/28/19 03/28/19 03/28/19 08:25 10:00 12:00 WBC RBC Hgb 4.9 L* D Hct 15.4 L* D MCV MCHC RDW Plt Count Lymph % (Auto) [place] % (Auto) Lymph # [place] # Seg Neutrophils % Seg Neuts % (Manual) Lymphocytes % (Manual) Monocytes % (Manual) Nucleated RBC % Seg Neutrophils # Seg Neutrophils # Man Lymphocytes # (Manual) Monocytes # (Manual) PT 17.9 H INR 1.52 H D-Dimer 4845.98 H Heparin Anti-Xa Level POC ABG pH ABG pH POC ABG pCO2 POC ABG pO2 ABG pO2 ABG HCO3 ABG O2 Saturation ABG Base Excess ABG Hemoglobin Oxyhemoglobin Sodium Potassium Chloride Carbon Dioxide BUN Creatinine Glucose POC Glucose Lactic Acid Calcium Ionized Calcium Phosphorus Magnesium Iron TIBC Ferritin Total Bilirubin Direct Bilirubin AST ALT Alkaline Phosphatase Total Creatine Kinase CK-MB (CK-2) Troponin T C-Reactive Protein Total Protein Albumin Triglycerides LDL Cholesterol Direct HDL Cholesterol Free T4 PTH Intact Urine WBC (Auto) Urine Creatinine Salicylates Acetaminophen Crossmatch See Detail 03/28/19 03/28/19 03/28/19 12:28 14:10 17:43 WBC RBC Hgb 5.9 L* Hct 18.3 L* MCV MCHC RDW Plt Count Lymph % (Auto) [place] % (Auto) Lymph # [place] # Seg Neutrophils % Seg Neuts % (Manual) Lymphocytes % (Manual) Monocytes % (Manual) Nucleated RBC % Seg Neutrophils # Seg Neutrophils # Man Lymphocytes # (Manual) Monocytes # (Manual) PT INR D-Dimer Heparin Anti-Xa Level POC ABG pH ABG pH POC ABG pCO2 POC ABG pO2 ABG pO2 ABG HCO3 ABG O2 Saturation ABG Base Excess ABG Hemoglobin Oxyhemoglobin Sodium Potassium Chloride Carbon Dioxide BUN Creatinine Glucose POC Glucose 153 H 159 H Lactic Acid Calcium Ionized Calcium Phosphorus Magnesium Iron TIBC Ferritin Total Bilirubin Direct Bilirubin AST ALT Alkaline Phosphatase Total Creatine Kinase CK-MB (CK-2) Troponin T C-Reactive Protein Total Protein Albumin Triglycerides LDL Cholesterol Direct HDL Cholesterol Free T4 PTH Intact Urine WBC (Auto) Urine Creatinine Salicylates Acetaminophen Crossmatch 03/28/19 03/28/19 03/28/19 18:10 Unknown 23:59 WBC 24.8 H RBC 3.42 L Hgb 10.2 L D Hct 31.1 L D MCV MCHC RDW 15.4 H Plt Count 54 L Lymph % (Auto) [place] % (Auto) Lymph # [place] # Seg Neutrophils % Seg Neuts % (Manual) 91.0 H Lymphocytes % (Manual) 8.0 L Monocytes % (Manual) Nucleated RBC % Seg Neutrophils # Seg Neutrophils # Man 22.6 H Lymphocytes # (Manual) Monocytes # (Manual) PT INR D-Dimer Heparin Anti-Xa Level POC ABG pH ABG pH POC ABG pCO2 POC ABG pO2 ABG pO2 ABG HCO3 ABG O2 Saturation ABG Base Excess ABG Hemoglobin Oxyhemoglobin Sodium Potassium 5.7 H Chloride Carbon Dioxide BUN Creatinine Glucose POC Glucose 107 H Lactic Acid Calcium Ionized Calcium Phosphorus Magnesium Iron TIBC Ferritin Total Bilirubin Direct Bilirubin AST ALT Alkaline Phosphatase Total Creatine Kinase CK-MB (CK-2) Troponin T C-Reactive Protein Total Protein Albumin Triglycerides LDL Cholesterol Direct HDL Cholesterol Free T4 PTH Intact Urine WBC (Auto) Urine Creatinine Salicylates Acetaminophen Crossmatch 03/29/19 03/29/19 03/29/19 04:29 05:46 06:22 WBC RBC Hgb 8.6 L Hct 25.7 L MCV MCHC RDW Plt Count 93 L Lymph % (Auto) [place] % (Auto) Lymph # [place] # Seg Neutrophils % Seg Neuts % (Manual) Lymphocytes % (Manual) Monocytes % (Manual) Nucleated RBC % Seg Neutrophils # Seg Neutrophils # Man Lymphocytes # (Manual) Monocytes # (Manual) PT INR D-Dimer Heparin Anti-Xa Level POC ABG pH ABG pH POC ABG pCO2 32.2 L POC ABG pO2 ABG pO2 ABG HCO3 ABG O2 Saturation ABG Base Excess ABG Hemoglobin Oxyhemoglobin Sodium Potassium Chloride Carbon Dioxide BUN Creatinine Glucose POC Glucose 113 H Lactic Acid Calcium Ionized Calcium Phosphorus Magnesium Iron TIBC Ferritin Total Bilirubin Direct Bilirubin AST ALT Alkaline Phosphatase Total Creatine Kinase CK-MB (CK-2) Troponin T C-Reactive Protein Total Protein Albumin Triglycerides LDL Cholesterol Direct HDL Cholesterol Free T4 PTH Intact Urine WBC (Auto) Urine Creatinine Salicylates Acetaminophen Crossmatch 03/29/19 03/29/19 03/29/19 06:22 06:22 06:22 WBC 23.2 H RBC 2.91 L Hgb 8.6 L Hct 25.8 L MCV MCHC RDW Plt Count 91 L Lymph % (Auto) [place] % (Auto) Lymph # [place] # Seg Neutrophils % Seg Neuts % (Manual) Lymphocytes % (Manual) Monocytes % (Manual) Nucleated RBC % Seg Neutrophils # Seg Neutrophils # Man Lymphocytes # (Manual) Monocytes # (Manual) PT INR D-Dimer Heparin Anti-Xa Level POC ABG pH ABG pH POC ABG pCO2 POC ABG pO2 ABG pO2 ABG HCO3 ABG O2 Saturation ABG Base Excess ABG Hemoglobin Oxyhemoglobin Sodium 133 L Potassium Chloride 93.8 L Carbon Dioxide 18 L BUN 109 H Creatinine 7.4 H Glucose 124 H POC Glucose Lactic Acid Calcium 4.6 L* Ionized Calcium Phosphorus Magnesium Iron TIBC Ferritin Total Bilirubin Direct Bilirubin AST ALT Alkaline Phosphatase Total Creatine Kinase 3401 H CK-MB (CK-2) Troponin T C-Reactive Protein Total Protein Albumin Triglycerides 309 H LDL Cholesterol Direct HDL Cholesterol Free T4 PTH Intact Urine WBC (Auto) Urine Creatinine Salicylates Acetaminophen Crossmatch 03/29/19 03/29/19 03/29/19 11:48 11:48 18:24 WBC RBC Hgb 7.8 L Hct 23.2 L MCV MCHC RDW Plt Count Lymph % (Auto) [place] % (Auto) Lymph # [place] # Seg Neutrophils % Seg Neuts % (Manual) Lymphocytes % (Manual) Monocytes % (Manual) Nucleated RBC % Seg Neutrophils # Seg Neutrophils # Man Lymphocytes # (Manual) Monocytes # (Manual) PT 15.3 H INR 1.24 H D-Dimer Heparin Anti-Xa Level POC ABG pH ABG pH POC ABG pCO2 POC ABG pO2 ABG pO2 ABG HCO3 ABG O2 Saturation ABG Base Excess ABG Hemoglobin Oxyhemoglobin Sodium Potassium Chloride Carbon Dioxide BUN Creatinine Glucose POC Glucose 122 H Lactic Acid Calcium Ionized Calcium Phosphorus Magnesium Iron TIBC Ferritin Total Bilirubin Direct Bilirubin AST ALT Alkaline Phosphatase Total Creatine Kinase CK-MB (CK-2) Troponin T C-Reactive Protein Total Protein Albumin Triglycerides LDL Cholesterol Direct HDL Cholesterol Free T4 PTH Intact Urine WBC (Auto) Urine Creatinine Salicylates Acetaminophen Crossmatch 03/30/19 03/30/19 03/30/19 00:40 04:31 05:04 WBC RBC Hgb 7.6 L Hct 23.0 L MCV MCHC RDW Plt Count Lymph % (Auto) [place] % (Auto) Lymph # [place] # Seg Neutrophils % Seg Neuts % (Manual) Lymphocytes % (Manual) Monocytes % (Manual) Nucleated RBC % Seg Neutrophils # Seg Neutrophils # Man Lymphocytes # (Manual) Monocytes # (Manual) PT INR D-Dimer Heparin Anti-Xa Level POC ABG pH 7.346 L ABG pH POC ABG pCO2 POC ABG pO2 62 L ABG pO2 ABG HCO3 ABG O2 Saturation ABG Base Excess ABG Hemoglobin Oxyhemoglobin Sodium Potassium Chloride Carbon Dioxide BUN 79 H Creatinine 6.4 H Glucose POC Glucose Lactic Acid Calcium 6.1 L D Ionized Calcium Phosphorus Magnesium Iron TIBC Ferritin Total Bilirubin Direct Bilirubin AST ALT Alkaline Phosphatase Total Creatine Kinase CK-MB (CK-2) Troponin T C-Reactive Protein Total Protein Albumin Triglycerides LDL Cholesterol Direct HDL Cholesterol Free T4 PTH Intact Urine WBC (Auto) Urine Creatinine Salicylates Acetaminophen Crossmatch 03/30/19 03/30/19 03/30/19 08:45 12:09 22:43 WBC 14.3 H RBC 2.33 L Hgb 7.0 L 7.4 L Hct 21.0 L 22.3 L MCV MCHC RDW 15.6 H Plt Count 135 L Lymph % (Auto) [place] % (Auto) Lymph # [place] # Seg Neutrophils % Seg Neuts % (Manual) Lymphocytes % (Manual) Monocytes % (Manual) Nucleated RBC % Seg Neutrophils # Seg Neutrophils # Man Lymphocytes # (Manual) Monocytes # (Manual) PT INR D-Dimer Heparin Anti-Xa Level POC ABG pH ABG pH POC ABG pCO2 POC ABG pO2 ABG pO2 ABG HCO3 ABG O2 Saturation ABG Base Excess ABG Hemoglobin Oxyhemoglobin Sodium Potassium Chloride Carbon Dioxide BUN Creatinine Glucose POC Glucose Lactic Acid Calcium Ionized Calcium 3.7 L Phosphorus Magnesium Iron TIBC Ferritin Total Bilirubin Direct Bilirubin AST ALT Alkaline Phosphatase Total Creatine Kinase CK-MB (CK-2) Troponin T C-Reactive Protein Total Protein Albumin Triglycerides LDL Cholesterol Direct HDL Cholesterol Free T4 PTH Intact Urine WBC (Auto) Urine Creatinine Salicylates Acetaminophen Crossmatch 03/30/19 03/30/19 03/31/19 23:38 Unknown 04:44 WBC 11.5 H RBC 2.40 L Hgb 7.3 L Hct 21.9 L MCV MCHC RDW 15.4 H Plt Count Lymph % (Auto) 10.6 L [place] % (Auto) Lymph # [place] # Seg Neutrophils % 81.7 H Seg Neuts % (Manual) Lymphocytes % (Manual) Monocytes % (Manual) Nucleated RBC % Seg Neutrophils # 9.4 H Seg Neutrophils # Man Lymphocytes # (Manual) Monocytes # (Manual) PT INR D-Dimer Heparin Anti-Xa Level POC ABG pH ABG pH POC ABG pCO2 POC ABG pO2 ABG pO2 ABG HCO3 ABG O2 Saturation ABG Base Excess ABG Hemoglobin Oxyhemoglobin Sodium Potassium Chloride Carbon Dioxide BUN Creatinine Glucose POC Glucose 155 H Lactic Acid Calcium Ionized Calcium Phosphorus Magnesium Iron TIBC Ferritin Total Bilirubin Direct Bilirubin 0.4 H AST 63 H ALT Alkaline Phosphatase Total Creatine Kinase CK-MB (CK-2) Troponin T C-Reactive Protein Total Protein 4.9 L Albumin 2.2 L Triglycerides LDL Cholesterol Direct HDL Cholesterol Free T4 PTH Intact Urine WBC (Auto) Urine Creatinine Salicylates Acetaminophen Crossmatch 03/31/19 03/31/19 03/31/19 04:44 05:44 08:20 WBC RBC Hgb Hct MCV MCHC RDW Plt Count Lymph % (Auto) [place] % (Auto) Lymph # [place] # Seg Neutrophils % Seg Neuts % (Manual) Lymphocytes % (Manual) Monocytes % (Manual) Nucleated RBC % Seg Neutrophils # Seg Neutrophils # Man Lymphocytes # (Manual) Monocytes # (Manual) PT INR D-Dimer Heparin Anti-Xa Level POC ABG pH ABG pH POC ABG pCO2 53.5 H POC ABG pO2 62 L ABG pO2 ABG HCO3 ABG O2 Saturation ABG Base Excess ABG Hemoglobin Oxyhemoglobin Sodium 135 L Potassium Chloride 96.7 L Carbon Dioxide 19 L BUN 94 H Creatinine 7.8 H Glucose POC Glucose Lactic Acid Calcium 5.3 L* Ionized Calcium Phosphorus 8.20 H Magnesium Iron TIBC Ferritin Total Bilirubin Direct Bilirubin 0.4 H AST 60 H ALT Alkaline Phosphatase Total Creatine Kinase CK-MB (CK-2) Troponin T C-Reactive Protein Total Protein 4.8 L Albumin 2.1 L Triglycerides LDL Cholesterol Direct HDL Cholesterol Free T4 PTH Intact Urine WBC (Auto) Urine Creatinine Salicylates Acetaminophen Crossmatch 03/31/19 04/01/19 04/01/19 22:14 04:27 04:27 WBC RBC 2.60 L Hgb 8.0 L Hct 24.1 L MCV MCHC RDW 15.7 H Plt Count Lymph % (Auto) 7.9 L [place] % (Auto) Lymph # 0.7 L [place] # Seg Neutrophils % 83.6 H Seg Neuts % (Manual) Lymphocytes % (Manual) Monocytes % (Manual) Nucleated RBC % Seg Neutrophils # Seg Neutrophils # Man Lymphocytes # (Manual) Monocytes # (Manual) PT INR D-Dimer Heparin Anti-Xa Level POC ABG pH 7.286 L ABG pH POC ABG pCO2 54.7 H POC ABG pO2 179 H ABG pO2 ABG HCO3 ABG O2 Saturation ABG Base Excess ABG Hemoglobin Oxyhemoglobin Sodium Potassium Chloride Carbon Dioxide BUN 68 H Creatinine 6.6 H Glucose POC Glucose Lactic Acid Calcium 6.5 L D Ionized Calcium Phosphorus 7.30 H Magnesium Iron TIBC Ferritin Total Bilirubin Direct Bilirubin AST ALT Alkaline Phosphatase Total Creatine Kinase 1652 H CK-MB (CK-2) Troponin T C-Reactive Protein Total Protein Albumin Triglycerides LDL Cholesterol Direct HDL Cholesterol Free T4 PTH Intact Urine WBC (Auto) Urine Creatinine Salicylates Acetaminophen Crossmatch 04/01/19 04/01/19 04/01/19 05:14 05:37 18:37 WBC RBC Hgb Hct MCV MCHC RDW Plt Count Lymph % (Auto) [place] % (Auto) Lymph # [place] # Seg Neutrophils % Seg Neuts % (Manual) Lymphocytes % (Manual) Monocytes % (Manual) Nucleated RBC % Seg Neutrophils # Seg Neutrophils # Man Lymphocytes # (Manual) Monocytes # (Manual) PT INR D-Dimer Heparin Anti-Xa Level POC ABG pH 7.283 L ABG pH POC ABG pCO2 53.4 H POC ABG pO2 241 H ABG pO2 ABG HCO3 ABG O2 Saturation ABG Base Excess ABG Hemoglobin Oxyhemoglobin Sodium Potassium Chloride Carbon Dioxide BUN Creatinine Glucose POC Glucose 111 H 119 H Lactic Acid Calcium Ionized Calcium Phosphorus Magnesium Iron TIBC Ferritin Total Bilirubin Direct Bilirubin AST ALT Alkaline Phosphatase Total Creatine Kinase CK-MB (CK-2) Troponin T C-Reactive Protein Total Protein Albumin Triglycerides LDL Cholesterol Direct HDL Cholesterol Free T4 PTH Intact Urine WBC (Auto) Urine Creatinine Salicylates Acetaminophen Crossmatch 04/01/19 04/02/19 04/02/19 21:28 04:40 05:03 WBC RBC 2.36 L Hgb 7.2 L Hct 21.9 L MCV MCHC RDW 16.0 H Plt Count Lymph % (Auto) 10.8 L [place] % (Auto) Lymph # 0.8 L [place] # Seg Neutrophils % 80.3 H Seg Neuts % (Manual) Lymphocytes % (Manual) Monocytes % (Manual) Nucleated RBC % Seg Neutrophils # Seg Neutrophils # Man Lymphocytes # (Manual) Monocytes # (Manual) PT INR D-Dimer Heparin Anti-Xa Level POC ABG pH 7.299 L 7.300 L ABG pH POC ABG pCO2 48.2 H 45.2 H POC ABG pO2 133 H 107 H ABG pO2 ABG HCO3 ABG O2 Saturation ABG Base Excess ABG Hemoglobin Oxyhemoglobin Sodium Potassium Chloride Carbon Dioxide BUN Creatinine Glucose POC Glucose Lactic Acid Calcium Ionized Calcium Phosphorus Magnesium Iron TIBC Ferritin Total Bilirubin Direct Bilirubin AST ALT Alkaline Phosphatase Total Creatine Kinase CK-MB (CK-2) Troponin T C-Reactive Protein Total Protein Albumin Triglycerides LDL Cholesterol Direct HDL Cholesterol Free T4 PTH Intact Urine WBC (Auto) Urine Creatinine Salicylates Acetaminophen Crossmatch 04/02/19 04/02/19 04/02/19 05:03 05:03 12:15 WBC RBC Hgb 7.4 L Hct 22.6 L MCV MCHC RDW Plt Count Lymph % (Auto) [place] % (Auto) Lymph # [place] # Seg Neutrophils % Seg Neuts % (Manual) Lymphocytes % (Manual) Monocytes % (Manual) Nucleated RBC % Seg Neutrophils # Seg Neutrophils # Man Lymphocytes # (Manual) Monocytes # (Manual) PT INR D-Dimer Heparin Anti-Xa Level POC ABG pH ABG pH POC ABG pCO2 POC ABG pO2 ABG pO2 ABG HCO3 ABG O2 Saturation ABG Base Excess ABG Hemoglobin Oxyhemoglobin Sodium 136 L Potassium Chloride 97.8 L Carbon Dioxide 18 L BUN 82 H Creatinine 8.2 H Glucose POC Glucose Lactic Acid Calcium 6.7 L Ionized Calcium Phosphorus 7.50 H Magnesium Iron 26 L TIBC 138 L Ferritin 607.0 H Total Bilirubin Direct Bilirubin AST ALT Alkaline Phosphatase Total Creatine Kinase CK-MB (CK-2) Troponin T C-Reactive Protein Total Protein Albumin Triglycerides LDL Cholesterol Direct HDL Cholesterol Free T4 PTH Intact Urine WBC (Auto) Urine Creatinine Salicylates Acetaminophen Crossmatch 04/02/19 04/02/19 04/03/19 16:34 17:14 04:18 WBC RBC Hgb Hct MCV MCHC RDW Plt Count Lymph % (Auto) [place] % (Auto) Lymph # [place] # Seg Neutrophils % Seg Neuts % (Manual) Lymphocytes % (Manual) Monocytes % (Manual) Nucleated RBC % Seg Neutrophils # Seg Neutrophils # Man Lymphocytes # (Manual) Monocytes # (Manual) PT INR D-Dimer Heparin Anti-Xa Level POC ABG pH ABG pH POC ABG pCO2 POC ABG pO2 146 H ABG pO2 ABG HCO3 ABG O2 Saturation ABG Base Excess ABG Hemoglobin Oxyhemoglobin Sodium Potassium Chloride Carbon Dioxide BUN Creatinine Glucose POC Glucose 108 H Lactic Acid Calcium Ionized Calcium Phosphorus Magnesium Iron TIBC Ferritin Total Bilirubin Direct Bilirubin AST ALT Alkaline Phosphatase Total Creatine Kinase CK-MB (CK-2) Troponin T C-Reactive Protein Total Protein Albumin Triglycerides LDL Cholesterol Direct HDL Cholesterol Free T4 PTH Intact Urine WBC (Auto) Urine Creatinine Salicylates Acetaminophen Crossmatch See Detail 04/03/19 04/03/19 04/03/19 04:25 08:30 18:24 WBC RBC 2.40 L Hgb 7.3 L Hct 21.9 L MCV MCHC RDW Plt Count Lymph % (Auto) [place] % (Auto) 7.7 H Lymph # 0.9 L [place] # Seg Neutrophils % 74.6 H Seg Neuts % (Manual) Lymphocytes % (Manual) Monocytes % (Manual) Nucleated RBC % Seg Neutrophils # Seg Neutrophils # Man Lymphocytes # (Manual) Monocytes # (Manual) PT INR D-Dimer Heparin Anti-Xa Level POC ABG pH ABG pH POC ABG pCO2 POC ABG pO2 ABG pO2 ABG HCO3 ABG O2 Saturation ABG Base Excess ABG Hemoglobin Oxyhemoglobin Sodium 136 L Potassium Chloride 97.0 L Carbon Dioxide BUN 58 H Creatinine 7.3 H Glucose POC Glucose 106 H Lactic Acid Calcium 7.5 L Ionized Calcium Phosphorus 5.80 H D Magnesium Iron TIBC Ferritin Total Bilirubin Direct Bilirubin AST ALT Alkaline Phosphatase Total Creatine Kinase CK-MB (CK-2) Troponin T C-Reactive Protein Total Protein Albumin Triglycerides LDL Cholesterol Direct HDL Cholesterol Free T4 PTH Intact Urine WBC (Auto) Urine Creatinine Salicylates Acetaminophen Crossmatch 04/03/19 04/04/19 04/04/19 23:43 04:47 04:47 WBC RBC 2.72 L Hgb 8.3 L Hct 24.7 L MCV MCHC RDW 15.6 H Plt Count Lymph % (Auto) [place] % (Auto) 10.1 H Lymph # 0.8 L [place] # Seg Neutrophils % 71.4 H Seg Neuts % (Manual) Lymphocytes % (Manual) Monocytes % (Manual) Nucleated RBC % Seg Neutrophils # Seg Neutrophils # Man Lymphocytes # (Manual) Monocytes # (Manual) PT INR D-Dimer Heparin Anti-Xa Level POC ABG pH ABG pH POC ABG pCO2 POC ABG pO2 ABG pO2 123.8 H ABG HCO3 ABG O2 Saturation ABG Base Excess -3.0 L ABG Hemoglobin 7.9 L Oxyhemoglobin Sodium 134 L Potassium Chloride 97.9 L Carbon Dioxide BUN 64 H Creatinine 8.1 H Glucose POC Glucose Lactic Acid Calcium 7.2 L Ionized Calcium Phosphorus Magnesium Iron TIBC Ferritin Total Bilirubin Direct Bilirubin AST ALT Alkaline Phosphatase Total Creatine Kinase CK-MB (CK-2) Troponin T C-Reactive Protein Total Protein Albumin Triglycerides LDL Cholesterol Direct HDL Cholesterol Free T4 PTH Intact Urine WBC (Auto) Urine Creatinine Salicylates Acetaminophen Crossmatch 04/04/19 04/04/19 04/04/19 06:07 13:40 18:18 WBC RBC Hgb Hct MCV MCHC RDW Plt Count Lymph % (Auto) [place] % (Auto) Lymph # [place] # Seg Neutrophils % Seg Neuts % (Manual) Lymphocytes % (Manual) Monocytes % (Manual) Nucleated RBC % Seg Neutrophils # Seg Neutrophils # Man Lymphocytes # (Manual) Monocytes # (Manual) PT INR D-Dimer Heparin Anti-Xa Level POC ABG pH ABG pH POC ABG pCO2 POC ABG pO2 ABG pO2 95.9 H ABG HCO3 ABG O2 Saturation ABG Base Excess -3.0 L ABG Hemoglobin 8.5 L Oxyhemoglobin Sodium Potassium Chloride Carbon Dioxide BUN Creatinine Glucose POC Glucose 107 H 107 H Lactic Acid Calcium Ionized Calcium Phosphorus Magnesium Iron TIBC Ferritin Total Bilirubin Direct Bilirubin AST ALT Alkaline Phosphatase Total Creatine Kinase CK-MB (CK-2) Troponin T C-Reactive Protein Total Protein Albumin Triglycerides LDL Cholesterol Direct HDL Cholesterol Free T4 PTH Intact Urine WBC (Auto) Urine Creatinine Salicylates Acetaminophen Crossmatch 04/04/19 04/05/19 04/05/19 21:22 04:09 04:09 WBC RBC 2.76 L Hgb 8.4 L Hct 25.4 L MCV MCHC RDW 15.8 H Plt Count 133 L Lymph % (Auto) [place] % (Auto) 9.6 H Lymph # 0.7 L [place] # Seg Neutrophils % 72.6 H Seg Neuts % (Manual) Lymphocytes % (Manual) Monocytes % (Manual) Nucleated RBC % Seg Neutrophils # Seg Neutrophils # Man Lymphocytes # (Manual) Monocytes # (Manual) PT INR D-Dimer Heparin Anti-Xa Level POC ABG pH ABG pH POC ABG pCO2 47.2 H POC ABG pO2 137 H ABG pO2 ABG HCO3 ABG O2 Saturation ABG Base Excess ABG Hemoglobin Oxyhemoglobin Sodium 136 L Potassium Chloride Carbon Dioxide BUN 46 H Creatinine 6.7 H Glucose POC Glucose Lactic Acid Calcium 7.7 L Ionized Calcium Phosphorus Magnesium Iron TIBC Ferritin Total Bilirubin Direct Bilirubin AST ALT Alkaline Phosphatase Total Creatine Kinase CK-MB (CK-2) Troponin T C-Reactive Protein Total Protein Albumin Triglycerides LDL Cholesterol Direct HDL Cholesterol Free T4 PTH Intact Urine WBC (Auto) Urine Creatinine Salicylates Acetaminophen Crossmatch 04/05/19 04/05/19 04/05/19 05:28 06:14 16:50 WBC RBC Hgb Hct MCV MCHC RDW Plt Count Lymph % (Auto) [place] % (Auto) Lymph # [place] # Seg Neutrophils % Seg Neuts % (Manual) Lymphocytes % (Manual) Monocytes % (Manual) Nucleated RBC % Seg Neutrophils # Seg Neutrophils # Man Lymphocytes # (Manual) Monocytes # (Manual) PT INR D-Dimer Heparin Anti-Xa Level POC ABG pH ABG pH POC ABG pCO2 POC ABG pO2 67 L ABG pO2 ABG HCO3 ABG O2 Saturation ABG Base Excess ABG Hemoglobin Oxyhemoglobin Sodium Potassium Chloride Carbon Dioxide BUN Creatinine Glucose POC Glucose 108 H Lactic Acid Calcium Ionized Calcium Phosphorus Magnesium Iron TIBC Ferritin Total Bilirubin Direct Bilirubin AST ALT Alkaline Phosphatase Total Creatine Kinase CK-MB (CK-2) Troponin T C-Reactive Protein Total Protein Albumin Triglycerides LDL Cholesterol Direct HDL Cholesterol Free T4 PTH Intact Urine WBC (Auto) 40.0 H Urine Creatinine Salicylates Acetaminophen Crossmatch 04/05/19 04/06/19 04/06/19 17:22 00:13 04:44 WBC RBC 2.48 L Hgb 7.5 L Hct 22.9 L MCV MCHC RDW 16.0 H Plt Count 107 L Lymph % (Auto) [place] % (Auto) 10.7 H Lymph # 1.0 L [place] # Seg Neutrophils % Seg Neuts % (Manual) Lymphocytes % (Manual) Monocytes % (Manual) Nucleated RBC % Seg Neutrophils # Seg Neutrophils # Man Lymphocytes # (Manual) Monocytes # (Manual) PT INR D-Dimer Heparin Anti-Xa Level POC ABG pH ABG pH POC ABG pCO2 POC ABG pO2 ABG pO2 ABG HCO3 ABG O2 Saturation ABG Base Excess ABG Hemoglobin Oxyhemoglobin Sodium Potassium Chloride Carbon Dioxide BUN Creatinine Glucose POC Glucose 118 H 138 H Lactic Acid Calcium Ionized Calcium Phosphorus Magnesium Iron TIBC Ferritin Total Bilirubin Direct Bilirubin AST ALT Alkaline Phosphatase Total Creatine Kinase CK-MB (CK-2) Troponin T C-Reactive Protein Total Protein Albumin Triglycerides LDL Cholesterol Direct HDL Cholesterol Free T4 PTH Intact Urine WBC (Auto) Urine Creatinine Salicylates Acetaminophen Crossmatch 04/06/19 04/06/19 04/06/19 04:44 05:20 05:23 WBC RBC Hgb Hct MCV MCHC RDW Plt Count Lymph % (Auto) [place] % (Auto) Lymph # [place] # Seg Neutrophils % Seg Neuts % (Manual) Lymphocytes % (Manual) Monocytes % (Manual) Nucleated RBC % Seg Neutrophils # Seg Neutrophils # Man Lymphocytes # (Manual) Monocytes # (Manual) PT INR D-Dimer Heparin Anti-Xa Level POC ABG pH ABG pH POC ABG pCO2 POC ABG pO2 ABG pO2 104.0 H ABG HCO3 ABG O2 Saturation ABG Base Excess -2.1 L ABG Hemoglobin 7.3 L Oxyhemoglobin Sodium Potassium Chloride Carbon Dioxide BUN 64 H Creatinine 8.2 H Glucose 103 H POC Glucose 118 H Lactic Acid Calcium 7.3 L Ionized Calcium Phosphorus Magnesium Iron TIBC Ferritin Total Bilirubin Direct Bilirubin AST ALT Alkaline Phosphatase Total Creatine Kinase CK-MB (CK-2) Troponin T C-Reactive Protein Total Protein Albumin Triglycerides LDL Cholesterol Direct HDL Cholesterol Free T4 PTH Intact Urine WBC (Auto) Urine Creatinine Salicylates Acetaminophen Crossmatch 04/06/19 04/07/19 04/07/19 12:02 05:40 05:40 WBC RBC 2.59 L Hgb 7.9 L Hct 23.8 L MCV MCHC RDW 15.8 H Plt Count 89 L Lymph % (Auto) [place] % (Auto) 10.3 H Lymph # 1.1 L [place] # Seg Neutrophils % Seg Neuts % (Manual) Lymphocytes % (Manual) Monocytes % (Manual) Nucleated RBC % Seg Neutrophils # Seg Neutrophils # Man Lymphocytes # (Manual) Monocytes # (Manual) PT INR D-Dimer Heparin Anti-Xa Level POC ABG pH ABG pH POC ABG pCO2 POC ABG pO2 ABG pO2 ABG HCO3 ABG O2 Saturation ABG Base Excess ABG Hemoglobin Oxyhemoglobin Sodium 136 L Potassium 3.5 L Chloride Carbon Dioxide BUN 46 H Creatinine 6.2 H Glucose POC Glucose 108 H Lactic Acid Calcium 7.9 L Ionized Calcium Phosphorus Magnesium Iron TIBC Ferritin Total Bilirubin Direct Bilirubin AST ALT Alkaline Phosphatase Total Creatine Kinase CK-MB (CK-2) Troponin T C-Reactive Protein Total Protein Albumin Triglycerides LDL Cholesterol Direct HDL Cholesterol Free T4 PTH Intact Urine WBC (Auto) Urine Creatinine Salicylates Acetaminophen Crossmatch 04/07/19 04/09/19 04/09/19 12:57 04:28 04:28 WBC RBC 2.85 L Hgb 8.7 L Hct 26.2 L MCV MCHC RDW 15.6 H Plt Count Lymph % (Auto) [place] % (Auto) 10.4 H Lymph # 1.0 L [place] # Seg Neutrophils % 73.3 H Seg Neuts % (Manual) Lymphocytes % (Manual) Monocytes % (Manual) Nucleated RBC % Seg Neutrophils # Seg Neutrophils # Man Lymphocytes # (Manual) Monocytes # (Manual) PT INR D-Dimer Heparin Anti-Xa Level POC ABG pH ABG pH POC ABG pCO2 POC ABG pO2 107 H ABG pO2 ABG HCO3 ABG O2 Saturation ABG Base Excess ABG Hemoglobin Oxyhemoglobin Sodium Potassium 3.5 L Chloride 97.8 L Carbon Dioxide BUN 62 H Creatinine 8.1 H Glucose POC Glucose Lactic Acid Calcium 8.2 L Ionized Calcium Phosphorus 5.10 H Magnesium Iron TIBC Ferritin Total Bilirubin Direct Bilirubin AST ALT Alkaline Phosphatase Total Creatine Kinase CK-MB (CK-2) Troponin T C-Reactive Protein Total Protein Albumin Triglycerides LDL Cholesterol Direct HDL Cholesterol Free T4 PTH Intact Urine WBC (Auto) Urine Creatinine Salicylates Acetaminophen Crossmatch 04/10/19 04/11/19 04/11/19 18:15 00:25 04:16 WBC 11.5 H RBC 2.91 L Hgb 8.9 L Hct 27.6 L MCV 95 H MCHC RDW 17.5 H Plt Count Lymph % (Auto) [place] % (Auto) Lymph # [place] # Seg Neutrophils % Seg Neuts % (Manual) 71.0 H Lymphocytes % (Manual) Monocytes % (Manual) 8.0 H Nucleated RBC % Seg Neutrophils # Seg Neutrophils # Man 8.2 H Lymphocytes # (Manual) Monocytes # (Manual) 0.9 H PT INR D-Dimer Heparin Anti-Xa Level POC ABG pH ABG pH POC ABG pCO2 POC ABG pO2 ABG pO2 ABG HCO3 ABG O2 Saturation ABG Base Excess ABG Hemoglobin Oxyhemoglobin Sodium Potassium Chloride Carbon Dioxide BUN Creatinine Glucose POC Glucose 109 H 114 H Lactic Acid Calcium Ionized Calcium Phosphorus Magnesium Iron TIBC Ferritin Total Bilirubin Direct Bilirubin AST ALT Alkaline Phosphatase Total Creatine Kinase CK-MB (CK-2) Troponin T C-Reactive Protein Total Protein Albumin Triglycerides LDL Cholesterol Direct HDL Cholesterol Free T4 PTH Intact Urine WBC (Auto) Urine Creatinine Salicylates Acetaminophen Crossmatch 04/11/19 04/11/19 04/11/19 06:47 09:21 12:15 WBC RBC Hgb Hct MCV MCHC RDW Plt Count Lymph % (Auto) [place] % (Auto) Lymph # [place] # Seg Neutrophils % Seg Neuts % (Manual) Lymphocytes % (Manual) Monocytes % (Manual) Nucleated RBC % Seg Neutrophils # Seg Neutrophils # Man Lymphocytes # (Manual) Monocytes # (Manual) PT INR D-Dimer Heparin Anti-Xa Level POC ABG pH ABG pH POC ABG pCO2 POC ABG pO2 ABG pO2 ABG HCO3 ABG O2 Saturation ABG Base Excess ABG Hemoglobin Oxyhemoglobin Sodium Potassium 3.5 L Chloride Carbon Dioxide BUN 45 H Creatinine 6.0 H Glucose 113 H POC Glucose 106 H 109 H Lactic Acid Calcium Ionized Calcium Phosphorus Magnesium Iron TIBC Ferritin Total Bilirubin Direct Bilirubin AST ALT Alkaline Phosphatase Total Creatine Kinase CK-MB (CK-2) Troponin T C-Reactive Protein Total Protein Albumin Triglycerides LDL Cholesterol Direct HDL Cholesterol Free T4 PTH Intact Urine WBC (Auto) Urine Creatinine Salicylates Acetaminophen Crossmatch 04/11/19 04/12/19 04/12/19 18:42 12:13 23:52 WBC RBC Hgb Hct MCV MCHC RDW Plt Count Lymph % (Auto) [place] % (Auto) Lymph # [place] # Seg Neutrophils % Seg Neuts % (Manual) Lymphocytes % (Manual) Monocytes % (Manual) Nucleated RBC % Seg Neutrophils # Seg Neutrophils # Man Lymphocytes # (Manual) Monocytes # (Manual) PT INR D-Dimer Heparin Anti-Xa Level POC ABG pH ABG pH POC ABG pCO2 POC ABG pO2 ABG pO2 ABG HCO3 ABG O2 Saturation ABG Base Excess ABG Hemoglobin Oxyhemoglobin Sodium Potassium Chloride Carbon Dioxide BUN Creatinine Glucose POC Glucose 107 H 115 H 124 H Lactic Acid Calcium Ionized Calcium Phosphorus Magnesium Iron TIBC Ferritin Total Bilirubin Direct Bilirubin AST ALT Alkaline Phosphatase Total Creatine Kinase CK-MB (CK-2) Troponin T C-Reactive Protein Total Protein Albumin Triglycerides LDL Cholesterol Direct HDL Cholesterol Free T4 PTH Intact Urine WBC (Auto) Urine Creatinine Salicylates Acetaminophen Crossmatch 04/13/19 04/13/19 04/13/19 05:00 05:00 05:47 WBC 11.7 H RBC 2.97 L Hgb 8.8 L Hct 27.3 L MCV MCHC RDW 16.1 H Plt Count Lymph % (Auto) 9.5 L [place] % (Auto) 9.9 H Lymph # 1.1 L [place] # 1.2 H Seg Neutrophils % 78.6 H Seg Neuts % (Manual) Lymphocytes % (Manual) Monocytes % (Manual) Nucleated RBC % Seg Neutrophils # 9.2 H Seg Neutrophils # Man Lymphocytes # (Manual) Monocytes # (Manual) PT INR D-Dimer Heparin Anti-Xa Level POC ABG pH ABG pH POC ABG pCO2 POC ABG pO2 ABG pO2 ABG HCO3 ABG O2 Saturation ABG Base Excess ABG Hemoglobin Oxyhemoglobin Sodium Potassium 3.5 L Chloride Carbon Dioxide BUN 42 H Creatinine 4.6 H Glucose 106 H POC Glucose 107 H Lactic Acid Calcium 10.6 H D Ionized Calcium Phosphorus 5.90 H Magnesium Iron TIBC Ferritin Total Bilirubin Direct Bilirubin AST ALT Alkaline Phosphatase Total Creatine Kinase CK-MB (CK-2) Troponin T C-Reactive Protein Total Protein 5.8 L Albumin 2.5 L Triglycerides LDL Cholesterol Direct HDL Cholesterol Free T4 PTH Intact Urine WBC (Auto) Urine Creatinine Salicylates Acetaminophen Crossmatch 04/13/19 04/14/19 04/14/19 17:32 00:00 03:55 WBC RBC Hgb Hct MCV MCHC RDW Plt Count Lymph % (Auto) [place] % (Auto) Lymph # [place] # Seg Neutrophils % Seg Neuts % (Manual) Lymphocytes % (Manual) Monocytes % (Manual) Nucleated RBC % Seg Neutrophils # Seg Neutrophils # Man Lymphocytes # (Manual) Monocytes # (Manual) PT INR D-Dimer Heparin Anti-Xa Level POC ABG pH ABG pH POC ABG pCO2 POC ABG pO2 ABG pO2 ABG HCO3 ABG O2 Saturation ABG Base Excess ABG Hemoglobin Oxyhemoglobin Sodium Potassium 3.0 L Chloride Carbon Dioxide BUN 30 H Creatinine 3.1 H Glucose POC Glucose 112 H 120 H Lactic Acid Calcium 10.8 H Ionized Calcium Phosphorus Magnesium Iron TIBC Ferritin Total Bilirubin Direct Bilirubin AST ALT Alkaline Phosphatase Total Creatine Kinase CK-MB (CK-2) Troponin T C-Reactive Protein Total Protein Albumin Triglycerides LDL Cholesterol Direct HDL Cholesterol Free T4 PTH Intact Urine WBC (Auto) Urine Creatinine Salicylates Acetaminophen Crossmatch 04/14/19 04/14/19 04/15/19 11:56 23:28 05:11 WBC 13.0 H RBC 2.93 L Hgb 8.6 L Hct 26.5 L MCV MCHC RDW 16.5 H Plt Count Lymph % (Auto) 12.2 L [place] % (Auto) 9.1 H Lymph # [place] # 1.2 H Seg Neutrophils % 77.6 H Seg Neuts % (Manual) Lymphocytes % (Manual) Monocytes % (Manual) Nucleated RBC % Seg Neutrophils # 10.1 H Seg Neutrophils # Man Lymphocytes # (Manual) Monocytes # (Manual) PT INR D-Dimer Heparin Anti-Xa Level POC ABG pH ABG pH POC ABG pCO2 POC ABG pO2 ABG pO2 ABG HCO3 ABG O2 Saturation ABG Base Excess ABG Hemoglobin Oxyhemoglobin Sodium Potassium Chloride Carbon Dioxide BUN Creatinine Glucose POC Glucose 109 H 112 H Lactic Acid Calcium Ionized Calcium Phosphorus Magnesium Iron TIBC Ferritin Total Bilirubin Direct Bilirubin AST ALT Alkaline Phosphatase Total Creatine Kinase CK-MB (CK-2) Troponin T C-Reactive Protein Total Protein Albumin Triglycerides LDL Cholesterol Direct HDL Cholesterol Free T4 PTH Intact Urine WBC (Auto) Urine Creatinine Salicylates Acetaminophen Crossmatch 04/15/19 04/15/19 04/15/19 05:11 05:31 18:03 WBC RBC Hgb Hct MCV MCHC RDW Plt Count Lymph % (Auto) [place] % (Auto) Lymph # [place] # Seg Neutrophils % Seg Neuts % (Manual) Lymphocytes % (Manual) Monocytes % (Manual) Nucleated RBC % Seg Neutrophils # Seg Neutrophils # Man Lymphocytes # (Manual) Monocytes # (Manual) PT INR D-Dimer Heparin Anti-Xa Level POC ABG pH ABG pH POC ABG pCO2 POC ABG pO2 ABG pO2 ABG HCO3 ABG O2 Saturation ABG Base Excess ABG Hemoglobin Oxyhemoglobin Sodium Potassium 3.2 L Chloride Carbon Dioxide BUN 44 H Creatinine 3.6 H Glucose 106 H POC Glucose 110 H 121 H Lactic Acid Calcium 12.0 H Ionized Calcium Phosphorus 5.00 H Magnesium Iron TIBC Ferritin Total Bilirubin Direct Bilirubin AST ALT Alkaline Phosphatase Total Creatine Kinase CK-MB (CK-2) Troponin T C-Reactive Protein Total Protein Albumin Triglycerides LDL Cholesterol Direct HDL Cholesterol Free T4 PTH Intact Urine WBC (Auto) Urine Creatinine Salicylates Acetaminophen Crossmatch 04/16/19 04/16/19 04/17/19 05:07 05:07 04:15 WBC 12.6 H RBC 3.12 L Hgb 9.0 L Hct 28.2 L MCV MCHC RDW 16.6 H Plt Count Lymph % (Auto) 10.3 L [place] % (Auto) 9.8 H Lymph # [place] # 1.2 H Seg Neutrophils % 78.2 H Seg Neuts % (Manual) Lymphocytes % (Manual) Monocytes % (Manual) Nucleated RBC % Seg Neutrophils # 9.9 H Seg Neutrophils # Man Lymphocytes # (Manual) Monocytes # (Manual) PT INR D-Dimer Heparin Anti-Xa Level POC ABG pH ABG pH POC ABG pCO2 POC ABG pO2 ABG pO2 ABG HCO3 ABG O2 Saturation ABG Base Excess ABG Hemoglobin Oxyhemoglobin Sodium 147 H 150 H Potassium 3.5 L 3.1 L Chloride Carbon Dioxide 32 H BUN 54 H 65 H Creatinine 3.8 H 4.0 H Glucose 102 H 107 H POC Glucose Lactic Acid Calcium 11.7 H 12.0 H Ionized Calcium Phosphorus 5.40 H Magnesium Iron TIBC Ferritin Total Bilirubin Direct Bilirubin AST ALT Alkaline Phosphatase Total Creatine Kinase CK-MB (CK-2) Troponin T C-Reactive Protein 7.10 H Total Protein Albumin Triglycerides LDL Cholesterol Direct HDL Cholesterol Free T4 PTH Intact Urine WBC (Auto) Urine Creatinine Salicylates Acetaminophen Crossmatch 04/17/19 04/17/19 04/17/19 04:15 06:05 12:49 WBC 15.8 H RBC 3.32 L Hgb 9.5 L Hct 29.9 L MCV MCHC RDW 16.9 H Plt Count Lymph % (Auto) 12.6 L [place] % (Auto) 11.1 H Lymph # [place] # 1.7 H Seg Neutrophils % 74.7 H Seg Neuts % (Manual) Lymphocytes % (Manual) Monocytes % (Manual) Nucleated RBC % Seg Neutrophils # 11.8 H Seg Neutrophils # Man Lymphocytes # (Manual) Monocytes # (Manual) PT INR D-Dimer Heparin Anti-Xa Level POC ABG pH ABG pH POC ABG pCO2 POC ABG pO2 ABG pO2 ABG HCO3 ABG O2 Saturation ABG Base Excess ABG Hemoglobin Oxyhemoglobin Sodium Potassium Chloride Carbon Dioxide BUN Creatinine Glucose POC Glucose 111 H 108 H Lactic Acid Calcium Ionized Calcium Phosphorus Magnesium Iron TIBC Ferritin Total Bilirubin Direct Bilirubin AST ALT Alkaline Phosphatase Total Creatine Kinase CK-MB (CK-2) Troponin T C-Reactive Protein Total Protein Albumin Triglycerides LDL Cholesterol Direct HDL Cholesterol Free T4 PTH Intact Urine WBC (Auto) Urine Creatinine Salicylates Acetaminophen Crossmatch 04/18/19 04/18/19 04/18/19 00:23 04:41 04:41 WBC 19.4 H RBC 3.03 L Hgb 8.6 L Hct 27.5 L MCV MCHC 31 L RDW 16.9 H Plt Count Lymph % (Auto) [place] % (Auto) Lymph # [place] # Seg Neutrophils % Seg Neuts % (Manual) Lymphocytes % (Manual) Monocytes % (Manual) Nucleated RBC % Seg Neutrophils # Seg Neutrophils # Man Lymphocytes # (Manual) Monocytes # (Manual) PT INR D-Dimer Heparin Anti-Xa Level POC ABG pH ABG pH POC ABG pCO2 POC ABG pO2 ABG pO2 ABG HCO3 ABG O2 Saturation ABG Base Excess ABG Hemoglobin Oxyhemoglobin Sodium 152 H Potassium 3.0 L Chloride Carbon Dioxide BUN 80 H Creatinine 4.3 H Glucose 103 H POC Glucose 115 H Lactic Acid Calcium 11.4 H Ionized Calcium Phosphorus Magnesium Iron TIBC Ferritin Total Bilirubin Direct Bilirubin AST ALT Alkaline Phosphatase Total Creatine Kinase CK-MB (CK-2) Troponin T C-Reactive Protein Total Protein Albumin Triglycerides LDL Cholesterol Direct HDL Cholesterol Free T4 PTH Intact Urine WBC (Auto) Urine Creatinine Salicylates Acetaminophen Crossmatch 04/18/19 04/18/19 04/18/19 06:17 12:16 18:10 WBC RBC Hgb Hct MCV MCHC RDW Plt Count Lymph % (Auto) [place] % (Auto) Lymph # [place] # Seg Neutrophils % Seg Neuts % (Manual) Lymphocytes % (Manual) Monocytes % (Manual) Nucleated RBC % Seg Neutrophils # Seg Neutrophils # Man Lymphocytes # (Manual) Monocytes # (Manual) PT INR D-Dimer Heparin Anti-Xa Level POC ABG pH ABG pH POC ABG pCO2 POC ABG pO2 ABG pO2 ABG HCO3 ABG O2 Saturation ABG Base Excess ABG Hemoglobin Oxyhemoglobin Sodium Potassium Chloride Carbon Dioxide BUN Creatinine Glucose POC Glucose 124 H 119 H 111 H Lactic Acid Calcium Ionized Calcium Phosphorus Magnesium Iron TIBC Ferritin Total Bilirubin Direct Bilirubin AST ALT Alkaline Phosphatase Total Creatine Kinase CK-MB (CK-2) Troponin T C-Reactive Protein Total Protein Albumin Triglycerides LDL Cholesterol Direct HDL Cholesterol Free T4 PTH Intact Urine WBC (Auto) Urine Creatinine Salicylates Acetaminophen Crossmatch 04/19/19 04/19/19 04/20/19 03:49 05:27 09:09 WBC RBC Hgb Hct MCV MCHC RDW Plt Count Lymph % (Auto) [place] % (Auto) Lymph # [place] # Seg Neutrophils % Seg Neuts % (Manual) Lymphocytes % (Manual) Monocytes % (Manual) Nucleated RBC % Seg Neutrophils # Seg Neutrophils # Man Lymphocytes # (Manual) Monocytes # (Manual) PT INR D-Dimer Heparin Anti-Xa Level POC ABG pH ABG pH POC ABG pCO2 POC ABG pO2 ABG pO2 ABG HCO3 ABG O2 Saturation ABG Base Excess ABG Hemoglobin Oxyhemoglobin Sodium 147 H 150 H Potassium 3.3 L Chloride 108.9 H Carbon Dioxide BUN 45 H 70 H Creatinine 2.9 H 4.1 H Glucose 105 H POC Glucose 124 H Lactic Acid Calcium 10.6 H 11.6 H Ionized Calcium Phosphorus Magnesium Iron TIBC Ferritin Total Bilirubin Direct Bilirubin AST ALT Alkaline Phosphatase Total Creatine Kinase CK-MB (CK-2) Troponin T C-Reactive Protein Total Protein Albumin Triglycerides LDL Cholesterol Direct HDL Cholesterol Free T4 PTH Intact Urine WBC (Auto) Urine Creatinine Salicylates Acetaminophen Crossmatch 04/20/19 04/20/19 04/21/19 12:29 18:45 01:34 WBC RBC Hgb Hct MCV MCHC RDW Plt Count Lymph % (Auto) [place] % (Auto) Lymph # [place] # Seg Neutrophils % Seg Neuts % (Manual) Lymphocytes % (Manual) Monocytes % (Manual) Nucleated RBC % Seg Neutrophils # Seg Neutrophils # Man Lymphocytes # (Manual) Monocytes # (Manual) PT INR D-Dimer Heparin Anti-Xa Level POC ABG pH ABG pH POC ABG pCO2 POC ABG pO2 ABG pO2 ABG HCO3 ABG O2 Saturation ABG Base Excess ABG Hemoglobin Oxyhemoglobin Sodium Potassium Chloride Carbon Dioxide BUN 40 H Creatinine 2.6 H Glucose 104 H POC Glucose 131 H 134 H Lactic Acid Calcium 11.0 H Ionized Calcium Phosphorus Magnesium Iron TIBC Ferritin Total Bilirubin Direct Bilirubin AST ALT Alkaline Phosphatase Total Creatine Kinase CK-MB (CK-2) Troponin T C-Reactive Protein Total Protein Albumin Triglycerides LDL Cholesterol Direct HDL Cholesterol Free T4 PTH Intact Urine WBC (Auto) Urine Creatinine Salicylates Acetaminophen Crossmatch 04/21/19 04/22/19 04/22/19 04:22 04:24 04:24 WBC 14.2 H 14.3 H RBC 3.02 L 3.57 L Hgb 8.7 L 10.1 L Hct 27.2 L 32.1 L MCV MCHC RDW 16.7 H 17.2 H Plt Count Lymph % (Auto) [place] % (Auto) Lymph # [place] # Seg Neutrophils % Seg Neuts % (Manual) Lymphocytes % (Manual) Monocytes % (Manual) Nucleated RBC % Seg Neutrophils # Seg Neutrophils # Man Lymphocytes # (Manual) Monocytes # (Manual) PT INR D-Dimer Heparin Anti-Xa Level POC ABG pH ABG pH POC ABG pCO2 POC ABG pO2 ABG pO2 ABG HCO3 ABG O2 Saturation ABG Base Excess ABG Hemoglobin Oxyhemoglobin Sodium Potassium Chloride Carbon Dioxide BUN 54 H Creatinine 3.5 H Glucose POC Glucose Lactic Acid Calcium 11.4 H Ionized Calcium Phosphorus Magnesium Iron TIBC Ferritin Total Bilirubin Direct Bilirubin AST ALT Alkaline Phosphatase Total Creatine Kinase CK-MB (CK-2) Troponin T C-Reactive Protein Total Protein Albumin Triglycerides LDL Cholesterol Direct HDL Cholesterol Free T4 PTH Intact Urine WBC (Auto) Urine Creatinine Salicylates Acetaminophen Crossmatch 04/22/19 04/22/19 04/22/19 06:37 11:57 18:33 WBC RBC Hgb Hct MCV MCHC RDW Plt Count Lymph % (Auto) [place] % (Auto) Lymph # [place] # Seg Neutrophils % Seg Neuts % (Manual) Lymphocytes % (Manual) Monocytes % (Manual) Nucleated RBC % Seg Neutrophils # Seg Neutrophils # Man Lymphocytes # (Manual) Monocytes # (Manual) PT INR D-Dimer Heparin Anti-Xa Level POC ABG pH ABG pH POC ABG pCO2 POC ABG pO2 ABG pO2 ABG HCO3 ABG O2 Saturation ABG Base Excess ABG Hemoglobin Oxyhemoglobin Sodium Potassium Chloride Carbon Dioxide BUN Creatinine Glucose POC Glucose 113 H 110 H 120 H Lactic Acid Calcium Ionized Calcium Phosphorus Magnesium Iron TIBC Ferritin Total Bilirubin Direct Bilirubin AST ALT Alkaline Phosphatase Total Creatine Kinase CK-MB (CK-2) Troponin T C-Reactive Protein Total Protein Albumin Triglycerides LDL Cholesterol Direct HDL Cholesterol Free T4 PTH Intact Urine WBC (Auto) Urine Creatinine Salicylates Acetaminophen Crossmatch 04/23/19 04/23/19 04/23/19 04:06 04:06 18:06 WBC 16.1 H RBC 3.36 L Hgb 9.8 L Hct 30.8 L MCV MCHC RDW 17.7 H Plt Count Lymph % (Auto) 9.9 L [place] % (Auto) Lymph # [place] # Seg Neutrophils % 84.2 H Seg Neuts % (Manual) Lymphocytes % (Manual) Monocytes % (Manual) Nucleated RBC % Seg Neutrophils # 13.6 H Seg Neutrophils # Man Lymphocytes # (Manual) Monocytes # (Manual) PT INR D-Dimer Heparin Anti-Xa Level POC ABG pH ABG pH POC ABG pCO2 POC ABG pO2 ABG pO2 ABG HCO3 ABG O2 Saturation ABG Base Excess ABG Hemoglobin Oxyhemoglobin Sodium Potassium Chloride Carbon Dioxide BUN 59 H Creatinine 3.8 H Glucose POC Glucose 124 H Lactic Acid Calcium 12.3 H* Ionized Calcium Phosphorus 5.70 H Magnesium Iron TIBC Ferritin Total Bilirubin Direct Bilirubin AST ALT Alkaline Phosphatase Total Creatine Kinase CK-MB (CK-2) Troponin T C-Reactive Protein Total Protein Albumin 3.2 L Triglycerides LDL Cholesterol Direct HDL Cholesterol Free T4 PTH Intact Urine WBC (Auto) Urine Creatinine Salicylates Acetaminophen Crossmatch 04/24/19 04/24/1919 04:12 04:12 06:21 WBC 18.0 H RBC 3.46 L Hgb 9.8 L Hct 31.2 L MCV MCHC 31 L RDW 17.5 H Plt Count Lymph % (Auto) 11.1 L [place] % (Auto) Lymph # [place] # Seg Neutrophils % 81.9 H Seg Neuts % (Manual) Lymphocytes % (Manual) Monocytes % (Manual) Nucleated RBC % Seg Neutrophils # 14.7 H Seg Neutrophils # Man Lymphocytes # (Manual) Monocytes # (Manual) PT INR D-Dimer Heparin Anti-Xa Level POC ABG pH ABG pH POC ABG pCO2 POC ABG pO2 ABG pO2 ABG HCO3 ABG O2 Saturation ABG Base Excess ABG Hemoglobin Oxyhemoglobin Sodium Potassium Chloride Carbon Dioxide BUN 56 H Creatinine 3.6 H Glucose POC Glucose 132 H Lactic Acid Calcium 12.6 H* Ionized Calcium Phosphorus Magnesium Iron TIBC Ferritin Total Bilirubin Direct Bilirubin AST ALT Alkaline Phosphatase Total Creatine Kinase CK-MB (CK-2) Troponin T C-Reactive Protein Total Protein Albumin 3.2 L Triglycerides LDL Cholesterol Direct HDL Cholesterol Free T4 PTH Intact Urine WBC (Auto) Urine Creatinine Salicylates Acetaminophen Crossmatch 04/24/19 04/25/19 04/25/19 11:47 05:58 05:58 WBC 18.0 H RBC 2.98 L Hgb 8.3 L Hct 26.5 L MCV MCHC 31 L RDW 17.9 H Plt Count Lymph % (Auto) 10.1 L [place] % (Auto) Lymph # [place] # 0.9 H Seg Neutrophils % 82.8 H Seg Neuts % (Manual) Lymphocytes % (Manual) Monocytes % (Manual) Nucleated RBC % Seg Neutrophils # 15.0 H Seg Neutrophils # Man Lymphocytes # (Manual) Monocytes # (Manual) PT INR D-Dimer Heparin Anti-Xa Level POC ABG pH ABG pH POC ABG pCO2 POC ABG pO2 ABG pO2 ABG HCO3 ABG O2 Saturation ABG Base Excess ABG Hemoglobin Oxyhemoglobin Sodium Potassium 3.2 L Chloride Carbon Dioxide BUN 52 H Creatinine 3.2 H Glucose 108 H POC Glucose 106 H Lactic Acid Calcium 11.4 H Ionized Calcium Phosphorus Magnesium Iron TIBC Ferritin Total Bilirubin Direct Bilirubin AST ALT Alkaline Phosphatase Total Creatine Kinase CK-MB (CK-2) Troponin T C-Reactive Protein Total Protein Albumin 3.0 L Triglycerides LDL Cholesterol Direct HDL Cholesterol Free T4 PTH Intact Urine WBC (Auto) Urine Creatinine Salicylates Acetaminophen Crossmatch Allied health notes reviewed: nursing
[2019-04-26] MEDS: LINEZOLID 600 MG/300 ML BAG IV SCH ×2 (05:07→17:00)
[2019-04-26 06:30] LABS: Albumin 2.3 g/dL (3.8-4.8); Gamma Globulin 1.1 g/dL (0.8-1.7)
[2019-04-26 06:55] LABS: Calcium 12.5 mg/dL (8.4-10.2)
--- NOTE | 2019-04-26 07:03 | Hem/Onc Progress Note ---
Assessment and Plan 1. h/o Anemia. The patient has history of bleeding. 2. rt Internal jugular partial thrombosis. The patient was started on heparin. This has been held due to bleeding 3. Gastrointestinal bleed. 4. h/o Elevated creatinine kinase. 5. h/o Low calcium. 6. h/o Thrombocytopenia. 7. h/o Renal failure. 8. h/o Intubation. 9. s/p Transfusion support. 10. Leukocytosis. At this time, supportive care may help the patient. The patient's platelet was low at admission. Urine toxicology was negative. awake h/o rt IJ dvt - off anticoagulation - due to bleeding platelet - > 100 s/p iv iron trial pt was on BIPAP - then o2 support h/o tachycardia - on meds - RT IJ line remvoed moving arms>legs left arm swelling -dvt study negative for left arm rt IJ dvt is better d/w pt reg DVT - bleed - anemia psych consulted placement being looked into 04/26 - d/w brother reg pt will follow labs - Patient Problems (1) DVT (deep venous thrombosis) Current Visit: Yes Status: Acute Subjective Date of service: 04/26/19 Principal diagnosis: anemia - dvt Interval history: c/o fatigue Objective - Exam Narrative Exam: Pain - none now General appearance - awake Performance status limited self care Eyes - no icterus ENT - on o2 LNs cervical not palpable Neck - no LN Respiratory Normal Breath sounds - CTA anteriorly CVS S1 S2 + Extremities edema + better General GI Soft Rectal deferred male - deferred Skin warm Musculoskeletal moves arms>legs Neurologically awake - Constitutional Vitals: Last Vital Signs Temp 97.7 F 04/26/19 05:33 Pulse 79 04/26/19 05:33 Resp 20 04/26/19 05:33 BP 114/61 04/26/19 05:33 Pulse Ox 95 04/26/19 05:33 - Labs Lab Results: Laboratory Results - last 24 hr 04/21/19 04/25/19 04/25/19 04:22 05:36 05:58 Sodium 141 Potassium 3.2 L Chloride 101.1 Carbon Dioxide 23 Anion Gap 20 BUN 52 H Creatinine 3.2 H Estimated GFR 21 BUN/Creatinine Ratio 16 Glucose 108 H POC Glucose 94 Calcium 11.4 H Phosphorus Magnesium Total Bilirubin 0.40 AST 17 ALT 21 Alkaline Phosphatase 53 Serum Total Protein 5.7 L Total Protein 6.5 Albumin 2.3 L 3.0 L Albumin/Globulin Ratio 0.9 Mhhse-2-Ecarageqj 0.5 H Ovlsz-3-Duzasorms 1.0 H Beta Globulins 0.4 Gamma Globulins 1.1 Abnorm Protein Band 1 see below PEP Interpretation see below H 04/25/19 04/25/19 04/26/19 11:10 17:52 00:39 Sodium Potassium Chloride Carbon Dioxide Anion Gap BUN Creatinine Estimated GFR BUN/Creatinine Ratio Glucose POC Glucose 97 80 79 Calcium Phosphorus Magnesium Total Bilirubin AST ALT Alkaline Phosphatase Serum Total Protein Total Protein Albumin Albumin/Globulin Ratio Bomhp-9-Wbqchstgo Wfipn-8-Mxzixmfum Beta Globulins Gamma Globulins Abnorm Protein Band 1 PEP Interpretation 04/26/19 04/26/19 05:57 06:08 Sodium 140 Potassium 3.6 Chloride 100.2 Carbon Dioxide 24 Anion Gap 19 BUN 48 H Creatinine 2.9 H Estimated GFR 24 BUN/Creatinine Ratio 17 Glucose 112 H POC Glucose 109 H Calcium 12.5 H* Phosphorus 5.90 H Magnesium 1.90 Total Bilirubin AST ALT Alkaline Phosphatase Serum Total Protein Total Protein Albumin Albumin/Globulin Ratio Xuucz-3-Tsgfthwqr Xfuug-9-Vgjvhcwdq Beta Globulins Gamma Globulins Abnorm Protein Band 1 PEP Interpretation Medications & Allergies - Medications Allergies/Adverse Reactions: Allergies No Known Allergies Allergy (Unverified 03/16/19 17:17) Home Medications: Home Medications Medication Instructions Recorded Confirmed Last Taken Type Unobtainable 03/18/19 04/20/19 Unknown History Active Medications: Generic Name Dose Route Start Last Admin Trade Name Freq PRN Reason Stop Dose Admin Acetaminophen 650 mg 04/02/19 23:26 04/21/19 20:29 Tylenol PO 650 mg Q4H PRN Administration Pain, Mild (1-3),temp>100.5 Albuterol 2.5 mg 03/29/19 13:08 Proventil IH Q4HRT PRN Shortness Of Breath Amiodarone HCl 200 mg 04/15/19 22:00 04/25/19 21:49 Cordarone PO 200 mg BID PAOLO Administration Lipase/Protease/Amylase 1 each 04/20/19 13:17 Pancrekarly [place] 10,500 Unit FEEDTUBE PRN PRN For Clogged Feeding Tube Bacitracin 1 applic 04/17/19 08:00 Antibiotic Oint TP Q4H PRN upper lip sore/open Dextrose 50 gm 04/17/19 08:00 D50w (25gm) Vial IV Q1H PRN Hypoglycemia Epoetin Jet 20,000 unit 03/31/19 10:15 04/20/19 12:47 Procrit SUB-Q 20,000 unit NEYMAR PRN Administration hemodialysis Hydralazine HCl 20 mg 04/14/19 03:00 04/14/19 03:11 Apresoline IV 20 mg Q4H PRN Administration hypertemsion Hydrophilic Ointment 1 applic 03/16/19 15:50 04/19/19 18:24 Vaseline Lip Therapy TP 1 applic Q2HR PRN Administration Dry Lips Aztreonam 2 gm in 100 mls @ 100 mls/hr 04/17/19 18:00 04/25/19 10:11 Azactam/Ns 2 Gm/100 Ml IV 100 mls/hr Q24HR PAOLO Administration Protocol Linezolid 600 mg in 300 mls @ 300 mls/hr 04/17/19 17:00 04/26/19 05:07 Zyvox 600mg/300ml IV 300 mls/hr Q12H PAOLO Administration Protocol Sodium Chloride 100 mls @ 999 mls/hr 04/20/19 08:41 Nacl 0.9% IV NEYMAR PRN Hypotension Lansoprazole 30 mg 04/11/19 10:00 04/25/19 21:49 Prevacid Solutab FEEDTUBE 30 mg BID PAOLO Administration Metoprolol Tartrate 5 mg 04/16/19 22:24 04/22/19 00:20 Lopressor IV 5 mg Q6H PRN Administration For HR >120 Metoprolol Tartrate 25 mg 04/17/19 20:00 04/25/19 21:49 Lopressor PO 25 mg TID PAOLO Administration Multi-Ingred Cream/Lotion/Oil/Oint 1 applic 03/16/19 15:50 03/19/19 20:10 Artificial Tears Ophth Oint OU 1 applic Q4HR PRN Administration Dry Eye(s) Simple Syrup 15 ml 04/20/19 13:17 Simple Syrup FEEDTUBE PRN PRN Hypoglycemia Simple Syrup 30 ml 04/20/19 13:29 Simple Syrup FEEDTUBE PRN PRN Hypoglycemia Sodium Bicarbonate 325 mg 04/20/19 13:17 Sodium Bicarbonate FEEDTUBE PRN PRN For Clogged Feeding Tube Sodium Hypochlorite 1 applic 04/18/19 11:00 04/25/19 11:36 Dakin's Half Strength TP 1 applicatio BID PAOLO Administration
[2019-04-26] MEDS ORDERED: SODIUM CHLORIDE 0.9% 1000 ML 1,000 ML IV ONE ×2 (07:45→09:30)
[2019-04-26] MEDS: METOPROLOL TARTRATE 25 MG TAB PO SCH ×3 (08:00→20:42)
[2019-04-26 08:35] LABS: BUN/Creatinine Ratio 16; Blood Urea Nitrogen 46 mg/dL (9-20); Hemolysis Index 10
[2019-04-26 08:42] LABS: Calcium > 13.0 mg/dL (8.4-10.2)
[2019-04-26] MEDS: SODIUM HYPOCHLORITE, DAKIN'S 1/2 STRENGTH (0.25%) 473 ML TOPICAL SOLN TP SCH ×3 (08:48→21:55)
--- NOTE | 2019-04-26 08:54 | Progress Note ---
Assessment and Plan Severe sepsis with shock. Right axilla abscess versus localized pannus/fatty collection. Acute hypoxemic respiratory failure, on mechanical ventilator support. Likely aspiration pneumonia, bilateral. Morbid obesity. Rhabdomyolysis. Acute kidney injury. Leukocytosis. Morbid obesity. Metabolic acidosis. Lactic acidosis. Hypomagnesemia. Elevated serum transaminases/possible shock liver. Acute encephalopathy, toxic metabolic versus anoxic (Discussed Code status with him with RN in room and he very emphatically wants to be a FULL CODE) - continue BIPAP scheduled qhs - will need outpatient PSG - continue aggressive PT/OT as tolerated - continue ST evaluation and advance diet as tolerated (continue tube feeds at goal rate as tolerated for now) - continue prn albuterol treatments - continue to wean FiO2 for sats > 90% - continue HD/UF per nephrology prescription for toxin and volume control - continue oral amiodarone for A-fib - prn supportive blood transfusions to keep serum Hb > 7.0 - Monitor hemodynamics closely - Transfuse PRBC's to keep HgB > 7g/dL - continue empiric broad spectrum antiinfective's per ID recommendations (de- escalate based on clinical and microbiologic data) - continue mobility protocols and off loading as tolerated for pressure ulcer prophylaxis - continue to avoid nephrotoxins, adjust all medications for GFR and CRCL - continue GI & VTE prophylaxis with - accuchecks with glycemic control per SSI for target BG of 140-180 mg/dl acutely - continue other care per attending / other consultants ... re-evaluate in am & prn CONDITION: IMPROVED PROGNOSIS: FAIR CODE STATUS: FULL CODE Subjective Date of service: 04/26/19 Principal diagnosis: Septic Shock; Ac. hypoxemic resp failure; Renzo. PNA; Rhabdomyolysis; RUBEN Interval history: Patient is seen today for: Severe sepsis with shock; Acute hypoxemic respiratory failure; Aspiration pneumonia; Morbid obesity; Rhabdomyolysis; Acute kidney in jury; Morbid obesity; Elevated serum transaminases/possible shock liver; Acute encephalopathy (Toxic/Met) Seen and examined at bedside; 24hour events reviewed; nursing and respiratory care staff consulted; no adverse overnight events reported to me; resting peacefully in bed; Objective Vital Signs - 12hr 04/25/19 04/25/19 04/25/19 21:29 21:35 21:49 Temperature 98.0 F Pulse Rate 81 81 Pulse Rate [ From Monitor] Respiratory 18 Rate Blood Pressure 111/61 111/61 O2 Sat by Pulse Oximetry 04/25/19 04/26/19 22:00 05:33 Temperature 97.7 F Pulse Rate 79 Pulse Rate [ 78 From Monitor] Respiratory 20 Rate Blood Pressure 114/61 O2 Sat by Pulse 95 Oximetry Constitutional: no acute distress, other (middle aged morbidly obese CM, normocephalic with incresed respiratory effort at rest) Eyes: icteric ENT: oropharynx moist, other (extubated) Neck: supple, no lymphadenopathy, no JVD, other (large neck circumference) Effort: mildly labored Ascultation: Bilateral: diminished breath sounds, rales, rhonchi (scant) Percussion: Bilateral: not dull Cardiovascular: irregular rhythm, other ( S1,S2) Gastrointestinal: hypoactive bowel sounds, soft, non-tender, non-distended, other (obese) Integumentary: normal, other (blisters with some weeping over the extremities) Extremities: no cyanosis, pink and warm, pulses normal, no ischemia or petechiae Neurologic: normal mental status, non-focal exam (grossly), pupils equal and round, CN II-XII normal, other (very weak) Psychiatric: mood appropriate, affect normal CBC and BMP: 04/25/19 05:58 04/26/19 07:22 ABG, PT/INR, D-dimer: ABG POC ABG pH 7.401 (7.35-7.45) 04/07/19 12:57 ABG pH 7.388 pH Units (7.350-7.450) 04/06/19 05:20 POC ABG pCO2 41.5 (35-45) 04/07/19 12:57 ABG pCO2 38.5 mm Hg 04/06/19 05:20 POC ABG pO2 107 (80-105) H 04/07/19 12:57 ABG pO2 104.0 mm Hg (80.0-90.0) H 04/06/19 05:20 POC ABG HCO3 25.7 (22-26 mml/L) 04/07/19 12:57 POC ABG Total CO2 27 (23-27mmol/L) 04/07/19 12:57 POC ABG O2 Sat 98 04/07/19 12:57 ABG O2 Saturation 97.8 % (95.0-99.0) 04/06/19 05:20 PT/INR, D-dimer PT 15.3 Sec. (12.2-14.9) H 03/29/19 11:48 INR 1.24 (0.87-1.13) H 03/29/19 11:48 D-Dimer 4845.98 ng/mlDDU (0-234) H 03/28/19 12:00 Abnormal lab findings: Abnormal Labs 03/16/19 03/16/19 03/16/19 15:32 16:03 16:05 WBC 27.0 H RBC 5.55 H Hgb 15.7 H Hct 47.1 H MCV MCHC RDW Plt Count 75 L Lymph % (Auto) Jew[place] % (Auto) Lymph # [place] # Seg Neutrophils % Seg Neuts % (Manual) 85.0 H Lymphocytes % (Manual) 2.0 L Monocytes % (Manual) Nucleated RBC % Seg Neutrophils # Seg Neutrophils # Man 23.0 H Lymphocytes # (Manual) 0.5 L Monocytes # (Manual) PT INR D-Dimer Heparin Anti-Xa Level POC ABG pH ABG pH POC ABG pCO2 POC ABG pO2 ABG pO2 ABG HCO3 ABG O2 Saturation ABG Base Excess ABG Hemoglobin Oxyhemoglobin Sodium 127 L Potassium Chloride 87.8 L Carbon Dioxide 17 L BUN 49 H Creatinine 5.8 H Glucose 150 H POC Glucose 118 H Lactic Acid Calcium 6.6 L Ionized Calcium Phosphorus Magnesium 1.10 L Iron TIBC Ferritin Total Bilirubin Direct Bilirubin AST ALT Alkaline Phosphatase Total Creatine Kinase 85332 H CK-MB (CK-2) Troponin T C-Reactive Protein Serum Total Protein Total Protein Albumin Fzxoa-1-Fxoeuufyy Fndfa-5-Cmdhwohrq PEP Interpretation Triglycerides LDL Cholesterol Direct HDL Cholesterol Free T4 PTH Intact Urine WBC (Auto) Urine Creatinine Salicylates Acetaminophen Crossmatch 03/16/19 03/16/19 03/16/19 16:59 17:05 17:05 WBC RBC Hgb Hct MCV MCHC RDW Plt Count Lymph % (Auto) [place] % (Auto) Lymph # [place] # Seg Neutrophils % Seg Neuts % (Manual) Lymphocytes % (Manual) Monocytes % (Manual) Nucleated RBC % Seg Neutrophils # Seg Neutrophils # Man Lymphocytes # (Manual) Monocytes # (Manual) PT INR D-Dimer Heparin Anti-Xa Level POC ABG pH 7.297 L ABG pH POC ABG pCO2 33.0 L POC ABG pO2 ABG pO2 ABG HCO3 ABG O2 Saturation ABG Base Excess ABG Hemoglobin Oxyhemoglobin Sodium Potassium Chloride Carbon Dioxide BUN Creatinine Glucose POC Glucose Lactic Acid Calcium Ionized Calcium Phosphorus Magnesium Iron TIBC Ferritin Total Bilirubin Direct Bilirubin AST ALT Alkaline Phosphatase Total Creatine Kinase 12167 H CK-MB (CK-2) 83.1 H Troponin T C-Reactive Protein Serum Total Protein Total Protein Albumin Oadel-3-Lkjzoemug Ksyhi-3-Gawctznpc PEP Interpretation Triglycerides LDL Cholesterol Direct HDL Cholesterol Free T4 0.72 L PTH Intact Urine WBC (Auto) Urine Creatinine Salicylates Acetaminophen Crossmatch 03/16/19 03/16/19 03/16/19 17:05 17:05 17:05 WBC RBC Hgb Hct MCV MCHC RDW Plt Count Lymph % (Auto) [place] % (Auto) Lymph # [place] # Seg Neutrophils % Seg Neuts % (Manual) Lymphocytes % (Manual) Monocytes % (Manual) Nucleated RBC % Seg Neutrophils # Seg Neutrophils # Man Lymphocytes # (Manual) Monocytes # (Manual) PT INR D-Dimer Heparin Anti-Xa Level POC ABG pH ABG pH POC ABG pCO2 POC ABG pO2 ABG pO2 ABG HCO3 ABG O2 Saturation ABG Base Excess ABG Hemoglobin Oxyhemoglobin Sodium Potassium Chloride Carbon Dioxide BUN Creatinine Glucose POC Glucose Lactic Acid 5.10 H* Calcium Ionized Calcium Phosphorus Magnesium Iron TIBC Ferritin Total Bilirubin Direct Bilirubin AST ALT Alkaline Phosphatase Total Creatine Kinase CK-MB (CK-2) Troponin T C-Reactive Protein Serum Total Protein Total Protein Albumin Duszq-2-Glmcddlyw Ohosn-1-Skrbcxldb PEP Interpretation Triglycerides LDL Cholesterol Direct HDL Cholesterol Free T4 PTH Intact Urine WBC (Auto) Urine Creatinine Salicylates < 0.3 L Acetaminophen < 5.0 L Crossmatch 03/16/19 03/16/19 03/16/19 17:05 17:05 20:35 WBC RBC Hgb Hct MCV MCHC RDW Plt Count Lymph % (Auto) [place] % (Auto) Lymph # [place] # Seg Neutrophils % Seg Neuts % (Manual) Lymphocytes % (Manual) Monocytes % (Manual) Nucleated RBC % Seg Neutrophils # Seg Neutrophils # Man Lymphocytes # (Manual) Monocytes # (Manual) PT 15.9 H INR 1.30 H D-Dimer Heparin Anti-Xa Level POC ABG pH ABG pH POC ABG pCO2 POC ABG pO2 ABG pO2 ABG HCO3 ABG O2 Saturation ABG Base Excess ABG Hemoglobin Oxyhemoglobin Sodium Potassium Chloride Carbon Dioxide BUN Creatinine Glucose POC Glucose Lactic Acid 3.30 H* Calcium Ionized Calcium Phosphorus Magnesium Iron TIBC Ferritin Total Bilirubin 6.20 H Direct Bilirubin 5.9 H AST 800 H ALT 120 H Alkaline Phosphatase Total Creatine Kinase CK-MB (CK-2) Troponin T C-Reactive Protein Serum Total Protein Total Protein 4.4 L Albumin 2.4 L Ysxdx-2-Vaeqmemel Sluje-1-Kisswguid PEP Interpretation Triglycerides LDL Cholesterol Direct HDL Cholesterol Free T4 PTH Intact Urine WBC (Auto) Urine Creatinine Salicylates Acetaminophen Crossmatch 03/16/19 03/16/19 03/16/19 21:45 22:32 Unknown WBC RBC Hgb Hct MCV MCHC RDW Plt Count Lymph % (Auto) [place] % (Auto) Lymph # [place] # Seg Neutrophils % Seg Neuts % (Manual) Lymphocytes % (Manual) Monocytes % (Manual) Nucleated RBC % Seg Neutrophils # Seg Neutrophils # Man Lymphocytes # (Manual) Monocytes # (Manual) PT INR D-Dimer Heparin Anti-Xa Level POC ABG pH ABG pH POC ABG pCO2 POC ABG pO2 ABG pO2 ABG HCO3 ABG O2 Saturation ABG Base Excess ABG Hemoglobin Oxyhemoglobin Sodium Potassium Chloride Carbon Dioxide BUN Creatinine Glucose POC Glucose Lactic Acid 3.30 H* 3.00 H* Calcium Ionized Calcium Phosphorus Magnesium Iron TIBC Ferritin Total Bilirubin Direct Bilirubin AST ALT Alkaline Phosphatase Total Creatine Kinase CK-MB (CK-2) Troponin T 0.047 H D C-Reactive Protein Serum Total Protein Total Protein Albumin Readg-0-Mbsawrpka Zgpar-7-Uurszhacl PEP Interpretation Triglycerides 395 H LDL Cholesterol Direct 10 L HDL Cholesterol 7 L Free T4 PTH Intact Urine WBC (Auto) Urine Creatinine Salicylates Acetaminophen Crossmatch 03/17/19 03/17/19 03/17/19 03:45 03:45 03:45 WBC RBC Hgb Hct MCV MCHC RDW Plt Count Lymph % (Auto) [place] % (Auto) Lymph # [place] # Seg Neutrophils % Seg Neuts % (Manual) Lymphocytes % (Manual) Monocytes % (Manual) Nucleated RBC % Seg Neutrophils # Seg Neutrophils # Man Lymphocytes # (Manual) Monocytes # (Manual) PT INR D-Dimer Heparin Anti-Xa Level POC ABG pH ABG pH POC ABG pCO2 POC ABG pO2 ABG pO2 ABG HCO3 ABG O2 Saturation ABG Base Excess ABG Hemoglobin Oxyhemoglobin Sodium 131 L Potassium Chloride 88.9 L Carbon Dioxide BUN 53 H Creatinine 7.1 H Glucose POC Glucose Lactic Acid 4.10 H* Calcium 5.4 L* D Ionized Calcium Phosphorus 7.30 H Magnesium 1.60 L Iron TIBC Ferritin Total Bilirubin 5.90 H Direct Bilirubin AST 801 H ALT 109 H Alkaline Phosphatase Total Creatine Kinase 63489 H 35891 H CK-MB (CK-2) 41.5 H Troponin T 0.054 H C-Reactive Protein Serum Total Protein Total Protein 4.5 L Albumin 2.0 L Czgyd-4-Mpbdvwylh Tyqfy-8-Iltfpmrhi PEP Interpretation Triglycerides LDL Cholesterol Direct HDL Cholesterol Free T4 PTH Intact Urine WBC (Auto) Urine Creatinine Salicylates Acetaminophen Crossmatch 03/17/19 03/17/19 03/17/19 05:47 07:16 07:16 WBC RBC Hgb Hct MCV MCHC RDW Plt Count Lymph % (Auto) [place] % (Auto) Lymph # [place] # Seg Neutrophils % Seg Neuts % (Manual) Lymphocytes % (Manual) Monocytes % (Manual) Nucleated RBC % Seg Neutrophils # Seg Neutrophils # Man Lymphocytes # (Manual) Monocytes # (Manual) PT INR D-Dimer Heparin Anti-Xa Level POC ABG pH 7.193 L ABG pH POC ABG pCO2 45.2 H POC ABG pO2 65 L ABG pO2 ABG HCO3 ABG O2 Saturation ABG Base Excess ABG Hemoglobin Oxyhemoglobin Sodium Potassium Chloride Carbon Dioxide BUN Creatinine Glucose POC Glucose Lactic Acid 5.50 H* Calcium Ionized Calcium Phosphorus Magnesium Iron TIBC Ferritin Total Bilirubin Direct Bilirubin AST ALT Alkaline Phosphatase Total Creatine Kinase 67572 H CK-MB (CK-2) 54.3 H Troponin T 0.058 H C-Reactive Protein Serum Total Protein Total Protein Albumin Btine-7-Yvygtuxln Jncwl-0-Mekhdkjpg PEP Interpretation Triglycerides LDL Cholesterol Direct HDL Cholesterol Free T4 PTH Intact Urine WBC (Auto) Urine Creatinine Salicylates Acetaminophen Crossmatch 03/17/19 03/17/19 03/17/19 11:52 12:51 13:01 WBC RBC Hgb Hct MCV MCHC RDW Plt Count Lymph % (Auto) [place] % (Auto) Lymph # [place] # Seg Neutrophils % Seg Neuts % (Manual) Lymphocytes % (Manual) Monocytes % (Manual) Nucleated RBC % Seg Neutrophils # Seg Neutrophils # Man Lymphocytes # (Manual) Monocytes # (Manual) PT INR D-Dimer Heparin Anti-Xa Level POC ABG pH 7.154 L ABG pH POC ABG pCO2 34.3 L POC ABG pO2 73 L ABG pO2 ABG HCO3 ABG O2 Saturation ABG Base Excess ABG Hemoglobin Oxyhemoglobin Sodium Potassium Chloride Carbon Dioxide BUN Creatinine Glucose POC Glucose 60 L Lactic Acid 8.20 H* Calcium Ionized Calcium Phosphorus Magnesium Iron TIBC Ferritin Total Bilirubin Direct Bilirubin AST ALT Alkaline Phosphatase Total Creatine Kinase CK-MB (CK-2) Troponin T C-Reactive Protein Serum Total Protein Total Protein Albumin Ishna-9-Qqlwykryo Qcazo-6-Yvblftemk PEP Interpretation Triglycerides LDL Cholesterol Direct HDL Cholesterol Free T4 PTH Intact Urine WBC (Auto) Urine Creatinine Salicylates Acetaminophen Crossmatch 03/17/19 03/17/19 03/17/19 14:37 14:37 14:37 WBC 29.3 H RBC Hgb Hct MCV MCHC RDW 15.8 H Plt Count 45 L Lymph % (Auto) [place] % (Auto) Lymph # [place] # Seg Neutrophils % Seg Neuts % (Manual) 81.0 H Lymphocytes % (Manual) 1.0 L Monocytes % (Manual) 15.0 H Nucleated RBC % Seg Neutrophils # Seg Neutrophils # Man 23.7 H Lymphocytes # (Manual) 0.3 L Monocytes # (Manual) 4.4 H PT INR D-Dimer Heparin Anti-Xa Level POC ABG pH ABG pH POC ABG pCO2 POC ABG pO2 ABG pO2 ABG HCO3 ABG O2 Saturation ABG Base Excess ABG Hemoglobin Oxyhemoglobin Sodium Potassium Chloride Carbon Dioxide BUN Creatinine Glucose POC Glucose Lactic Acid 4.90 H* Calcium Ionized Calcium Phosphorus Magnesium Iron TIBC Ferritin Total Bilirubin Direct Bilirubin AST ALT Alkaline Phosphatase Total Creatine Kinase CK-MB (CK-2) Troponin T C-Reactive Protein 24.90 H Serum Total Protein Total Protein Albumin Ztygc-0-Dryzhyixq Fvmqs-9-Wnjfquvbc PEP Interpretation Triglycerides LDL Cholesterol Direct HDL Cholesterol Free T4 PTH Intact Urine WBC (Auto) Urine Creatinine Salicylates Acetaminophen Crossmatch 03/17/19 03/17/19 03/17/19 16:05 16:05 17:02 WBC RBC Hgb Hct MCV MCHC RDW Plt Count Lymph % (Auto) [place] % (Auto) Lymph # [place] # Seg Neutrophils % Seg Neuts % (Manual) Lymphocytes % (Manual) Monocytes % (Manual) Nucleated RBC % Seg Neutrophils # Seg Neutrophils # Man Lymphocytes # (Manual) Monocytes # (Manual) PT INR D-Dimer Heparin Anti-Xa Level POC ABG pH 7.183 L ABG pH POC ABG pCO2 POC ABG pO2 65 L ABG pO2 ABG HCO3 ABG O2 Saturation ABG Base Excess ABG Hemoglobin Oxyhemoglobin Sodium Potassium Chloride Carbon Dioxide BUN Creatinine Glucose POC Glucose Lactic Acid Calcium Ionized Calcium Phosphorus Magnesium Iron TIBC Ferritin Total Bilirubin Direct Bilirubin AST ALT Alkaline Phosphatase Total Creatine Kinase CK-MB (CK-2) Troponin T C-Reactive Protein Serum Total Protein Total Protein Albumin Lumuw-0-Bqblhruxu Buidg-7-Ajevsxfos PEP Interpretation Triglycerides LDL Cholesterol Direct HDL Cholesterol Free T4 PTH Intact Urine WBC (Auto) 30.0 H Urine Creatinine 106.6 H Salicylates Acetaminophen Crossmatch 03/18/19 03/18/19 03/18/19 05:12 05:16 05:53 WBC RBC Hgb Hct MCV MCHC RDW Plt Count Lymph % (Auto) [place] % (Auto) Lymph # [place] # Seg Neutrophils % Seg Neuts % (Manual) Lymphocytes % (Manual) Monocytes % (Manual) Nucleated RBC % Seg Neutrophils # Seg Neutrophils # Man Lymphocytes # (Manual) Monocytes # (Manual) PT INR D-Dimer Heparin Anti-Xa Level POC ABG pH 7.257 L ABG pH POC ABG pCO2 31.6 L POC ABG pO2 69 L ABG pO2 ABG HCO3 ABG O2 Saturation ABG Base Excess ABG Hemoglobin Oxyhemoglobin Sodium Potassium Chloride Carbon Dioxide BUN Creatinine Glucose POC Glucose 141 H Lactic Acid 5.00 H* Calcium Ionized Calcium Phosphorus Magnesium Iron TIBC Ferritin Total Bilirubin Direct Bilirubin AST ALT Alkaline Phosphatase Total Creatine Kinase CK-MB (CK-2) Troponin T C-Reactive Protein Serum Total Protein Total Protein Albumin Rgiif-2-Bihpzmmfe Vpmoo-4-Zxzvfzglz PEP Interpretation Triglycerides LDL Cholesterol Direct HDL Cholesterol Free T4 PTH Intact Urine WBC (Auto) Urine Creatinine Salicylates Acetaminophen Crossmatch 03/18/19 03/18/19 03/18/19 06:57 08:40 08:40 WBC 31.7 H RBC Hgb Hct MCV MCHC RDW 15.5 H Plt Count 35 L Lymph % (Auto) [place] % (Auto) Lymph # [place] # Seg Neutrophils % Seg Neuts % (Manual) Lymphocytes % (Manual) Monocytes % (Manual) Nucleated RBC % Seg Neutrophils # Seg Neutrophils # Man Lymphocytes # (Manual) Monocytes # (Manual) PT INR D-Dimer Heparin Anti-Xa Level POC ABG pH ABG pH POC ABG pCO2 POC ABG pO2 ABG pO2 ABG HCO3 ABG O2 Saturation ABG Base Excess ABG Hemoglobin Oxyhemoglobin Sodium 132 L Potassium 5.5 H D Chloride 88.5 L Carbon Dioxide 18 L BUN 71 H Creatinine 8.1 H Glucose 205 H POC Glucose Lactic Acid 5.00 H* Calcium 4.1 L* D Ionized Calcium Phosphorus Magnesium 2.40 H Iron TIBC Ferritin Total Bilirubin 7.50 H Direct Bilirubin AST 1088 H ALT 159 H Alkaline Phosphatase 190 H Total Creatine Kinase 544577 H CK-MB (CK-2) Troponin T C-Reactive Protein Serum Total Protein Total Protein 4.7 L Albumin 1.8 L Crkct-8-Vdnebympy Euffa-2-Vkjsfwffg PEP Interpretation Triglycerides LDL Cholesterol Direct HDL Cholesterol Free T4 PTH Intact Urine WBC (Auto) Urine Creatinine Salicylates Acetaminophen Crossmatch 03/18/19 03/18/19 03/18/19 12:33 12:50 13:19 WBC RBC Hgb Hct MCV MCHC RDW Plt Count Lymph % (Auto) [place] % (Auto) Lymph # [place] # Seg Neutrophils % Seg Neuts % (Manual) Lymphocytes % (Manual) Monocytes % (Manual) Nucleated RBC % Seg Neutrophils # Seg Neutrophils # Man Lymphocytes # (Manual) Monocytes # (Manual) PT INR D-Dimer Heparin Anti-Xa Level POC ABG pH 7.282 L ABG pH POC ABG pCO2 POC ABG pO2 67 L ABG pO2 ABG HCO3 ABG O2 Saturation ABG Base Excess ABG Hemoglobin Oxyhemoglobin Sodium Potassium Chloride Carbon Dioxide BUN Creatinine Glucose POC Glucose 129 H Lactic Acid 3.30 H* Calcium Ionized Calcium Phosphorus Magnesium Iron TIBC Ferritin Total Bilirubin Direct Bilirubin AST ALT Alkaline Phosphatase Total Creatine Kinase CK-MB (CK-2) Troponin T C-Reactive Protein Serum Total Protein Total Protein Albumin Zmkoi-3-Jzdzgydvo Zwdqu-7-Brhlcgsvk PEP Interpretation Triglycerides LDL Cholesterol Direct HDL Cholesterol Free T4 PTH Intact Urine WBC (Auto) Urine Creatinine Salicylates Acetaminophen Crossmatch 03/18/19 03/18/19 03/18/19 13:19 16:50 18:11 WBC RBC Hgb Hct MCV MCHC RDW Plt Count Lymph % (Auto) [place] % (Auto) Lymph # [place] # Seg Neutrophils % Seg Neuts % (Manual) Lymphocytes % (Manual) Monocytes % (Manual) Nucleated RBC % Seg Neutrophils # Seg Neutrophils # Man Lymphocytes # (Manual) Monocytes # (Manual) PT INR D-Dimer Heparin Anti-Xa Level POC ABG pH ABG pH POC ABG pCO2 POC ABG pO2 59 L ABG pO2 ABG HCO3 ABG O2 Saturation ABG Base Excess ABG Hemoglobin Oxyhemoglobin Sodium Potassium Chloride Carbon Dioxide BUN Creatinine Glucose POC Glucose 151 H Lactic Acid Calcium 4.2 L* Ionized Calcium Phosphorus Magnesium Iron TIBC Ferritin Total Bilirubin Direct Bilirubin AST ALT Alkaline Phosphatase Total Creatine Kinase 573649 H CK-MB (CK-2) Troponin T C-Reactive Protein Serum Total Protein Total Protein Albumin Bksfy-1-Fzhlwiwap Wtpim-3-Ltsyymyoy PEP Interpretation Triglycerides LDL Cholesterol Direct HDL Cholesterol Free T4 PTH Intact Urine WBC (Auto) Urine Creatinine Salicylates Acetaminophen Crossmatch 03/18/19 03/18/19 03/19/19 18:20 23:39 01:42 WBC RBC Hgb Hct MCV MCHC RDW Plt Count Lymph % (Auto) [place] % (Auto) Lymph # [place] # Seg Neutrophils % Seg Neuts % (Manual) Lymphocytes % (Manual) Monocytes % (Manual) Nucleated RBC % Seg Neutrophils # Seg Neutrophils # Man Lymphocytes # (Manual) Monocytes # (Manual) PT INR D-Dimer Heparin Anti-Xa Level POC ABG pH 7.345 L ABG pH 7.285 L POC ABG pCO2 POC ABG pO2 59 L ABG pO2 44.0 L ABG HCO3 ABG O2 Saturation 70.9 L ABG Base Excess -5.7 L ABG Hemoglobin 11.9 L Oxyhemoglobin 69.6 L Sodium Potassium Chloride Carbon Dioxide BUN Creatinine Glucose POC Glucose 152 H Lactic Acid Calcium Ionized Calcium Phosphorus Magnesium Iron TIBC Ferritin Total Bilirubin Direct Bilirubin AST ALT Alkaline Phosphatase Total Creatine Kinase CK-MB (CK-2) Troponin T C-Reactive Protein Serum Total Protein Total Protein Albumin Ijagg-7-Btcnnfvma Thrqs-4-Ehohugelo PEP Interpretation Triglycerides LDL Cholesterol Direct HDL Cholesterol Free T4 PTH Intact Urine WBC (Auto) Urine Creatinine Salicylates Acetaminophen Crossmatch 03/19/19 03/19/19 03/19/19 04:00 04:00 05:35 WBC 36.5 H RBC Hgb Hct MCV MCHC RDW 15.8 H Plt Count 35 L Lymph % (Auto) [place] % (Auto) Lymph # [place] # Seg Neutrophils % Seg Neuts % (Manual) Lymphocytes % (Manual) Monocytes % (Manual) Nucleated RBC % Seg Neutrophils # Seg Neutrophils # Man Lymphocytes # (Manual) Monocytes # (Manual) PT INR D-Dimer Heparin Anti-Xa Level POC ABG pH ABG pH 7.265 L POC ABG pCO2 POC ABG pO2 ABG pO2 35.4 L* ABG HCO3 ABG O2 Saturation 54.4 L ABG Base Excess -6.7 L ABG Hemoglobin 12.9 L Oxyhemoglobin 53.4 L Sodium 132 L Potassium 5.7 H Chloride 89.8 L Carbon Dioxide 19 L BUN 62 H Creatinine 6.4 H Glucose 151 H POC Glucose Lactic Acid Calcium 5.2 L* D Ionized Calcium Phosphorus Magnesium Iron TIBC Ferritin Total Bilirubin 7.80 H Direct Bilirubin AST 682 H ALT 130 H Alkaline Phosphatase 167 H Total Creatine Kinase CK-MB (CK-2) Troponin T C-Reactive Protein Serum Total Protein Total Protein 4.8 L Albumin 2.3 L Ywmau-7-Ygwooowjh Qkaqy-1-Luwtlgimj PEP Interpretation Triglycerides LDL Cholesterol Direct HDL Cholesterol Free T4 PTH Intact Urine WBC (Auto) Urine Creatinine Salicylates Acetaminophen Crossmatch 03/19/19 03/19/19 03/19/19 05:49 09:16 09:50 WBC RBC Hgb Hct MCV MCHC RDW Plt Count Lymph % (Auto) [place] % (Auto) Lymph # [place] # Seg Neutrophils % Seg Neuts % (Manual) Lymphocytes % (Manual) Monocytes % (Manual) Nucleated RBC % Seg Neutrophils # Seg Neutrophils # Man Lymphocytes # (Manual) Monocytes # (Manual) PT INR D-Dimer Heparin Anti-Xa Level POC ABG pH 7.222 L ABG pH POC ABG pCO2 56.6 H POC ABG pO2 ABG pO2 ABG HCO3 ABG O2 Saturation ABG Base Excess ABG Hemoglobin Oxyhemoglobin Sodium Potassium Chloride Carbon Dioxide BUN Creatinine Glucose POC Glucose 154 H Lactic Acid 2.70 H* Calcium Ionized Calcium Phosphorus Magnesium Iron TIBC Ferritin Total Bilirubin Direct Bilirubin AST ALT Alkaline Phosphatase Total Creatine Kinase CK-MB (CK-2) Troponin T C-Reactive Protein Serum Total Protein Total Protein Albumin Ekole-0-Hygxdnfxt Zprfx-3-Yffxhgcbw PEP Interpretation Triglycerides LDL Cholesterol Direct HDL Cholesterol Free T4 PTH Intact Urine WBC (Auto) Urine Creatinine Salicylates Acetaminophen Crossmatch 03/19/19 03/19/19 03/19/19 09:50 11:28 17:58 WBC RBC Hgb Hct MCV MCHC RDW Plt Count Lymph % (Auto) [place] % (Auto) Lymph # [place] # Seg Neutrophils % Seg Neuts % (Manual) Lymphocytes % (Manual) Monocytes % (Manual) Nucleated RBC % Seg Neutrophils # Seg Neutrophils # Man Lymphocytes # (Manual) Monocytes # (Manual) PT INR D-Dimer Heparin Anti-Xa Level POC ABG pH 7.250 L ABG pH POC ABG pCO2 52.6 H POC ABG pO2 ABG pO2 ABG HCO3 ABG O2 Saturation ABG Base Excess ABG Hemoglobin Oxyhemoglobin Sodium Potassium Chloride Carbon Dioxide BUN Creatinine Glucose POC Glucose 160 H Lactic Acid Calcium Ionized Calcium Phosphorus Magnesium Iron TIBC Ferritin Total Bilirubin Direct Bilirubin AST ALT Alkaline Phosphatase Total Creatine Kinase 59053 H CK-MB (CK-2) Troponin T C-Reactive Protein Serum Total Protein Total Protein Albumin Ukhir-9-Vdpknubbx Doyhs-8-Yvxvirqzm PEP Interpretation Triglycerides LDL Cholesterol Direct HDL Cholesterol Free T4 PTH Intact Urine WBC (Auto) Urine Creatinine Salicylates Acetaminophen Crossmatch 03/19/19 03/19/19 03/20/19 19:48 21:03 02:16 WBC RBC Hgb Hct MCV MCHC RDW Plt Count Lymph % (Auto) [place] % (Auto) Lymph # [place] # Seg Neutrophils % Seg Neuts % (Manual) Lymphocytes % (Manual) Monocytes % (Manual) Nucleated RBC % Seg Neutrophils # Seg Neutrophils # Man Lymphocytes # (Manual) Monocytes # (Manual) PT INR D-Dimer Heparin Anti-Xa Level POC ABG pH 7.279 L ABG pH POC ABG pCO2 50.3 H POC ABG pO2 129 H ABG pO2 ABG HCO3 ABG O2 Saturation ABG Base Excess ABG Hemoglobin Oxyhemoglobin Sodium Potassium Chloride Carbon Dioxide BUN Creatinine Glucose POC Glucose 119 H 119 H Lactic Acid Calcium Ionized Calcium Phosphorus Magnesium Iron TIBC Ferritin Total Bilirubin Direct Bilirubin AST ALT Alkaline Phosphatase Total Creatine Kinase CK-MB (CK-2) Troponin T C-Reactive Protein Serum Total Protein Total Protein Albumin Mvauj-0-Isbnuvkmr Olpdv-8-Enafmbfbf PEP Interpretation Triglycerides LDL Cholesterol Direct HDL Cholesterol Free T4 PTH Intact Urine WBC (Auto) Urine Creatinine Salicylates Acetaminophen Crossmatch 03/20/19 03/20/19 03/20/19 04:23 05:05 09:30 WBC 36.3 H RBC Hgb Hct MCV MCHC RDW 15.5 H Plt Count 29 L Lymph % (Auto) [place] % (Auto) Lymph # [place] # Seg Neutrophils % Seg Neuts % (Manual) Lymphocytes % (Manual) Monocytes % (Manual) Nucleated RBC % Seg Neutrophils # Seg Neutrophils # Man Lymphocytes # (Manual) Monocytes # (Manual) PT INR D-Dimer Heparin Anti-Xa Level POC ABG pH ABG pH POC ABG pCO2 POC ABG pO2 280 H ABG pO2 ABG HCO3 ABG O2 Saturation ABG Base Excess ABG Hemoglobin Oxyhemoglobin Sodium Potassium Chloride Carbon Dioxide BUN Creatinine Glucose POC Glucose 115 H Lactic Acid Calcium Ionized Calcium Phosphorus Magnesium Iron TIBC Ferritin Total Bilirubin Direct Bilirubin AST ALT Alkaline Phosphatase Total Creatine Kinase CK-MB (CK-2) Troponin T C-Reactive Protein Serum Total Protein Total Protein Albumin Ifwte-7-Hvkvulzpi Mgxwn-2-Kprhlmhva PEP Interpretation Triglycerides LDL Cholesterol Direct HDL Cholesterol Free T4 PTH Intact Urine WBC (Auto) Urine Creatinine Salicylates Acetaminophen Crossmatch 03/20/19 03/20/19 03/20/19 09:30 09:30 11:34 WBC RBC Hgb Hct MCV MCHC RDW Plt Count Lymph % (Auto) [place] % (Auto) Lymph # [place] # Seg Neutrophils % Seg Neuts % (Manual) Lymphocytes % (Manual) Monocytes % (Manual) Nucleated RBC % Seg Neutrophils # Seg Neutrophils # Man Lymphocytes # (Manual) Monocytes # (Manual) PT INR D-Dimer Heparin Anti-Xa Level POC ABG pH ABG pH POC ABG pCO2 POC ABG pO2 ABG pO2 ABG HCO3 ABG O2 Saturation ABG Base Excess ABG Hemoglobin Oxyhemoglobin Sodium 131 L Potassium Chloride 92.3 L Carbon Dioxide 20 L BUN 68 H Creatinine 6.1 H Glucose 164 H POC Glucose 141 H Lactic Acid Calcium 5.3 L* Ionized Calcium Phosphorus Magnesium Iron TIBC Ferritin Total Bilirubin 9.50 H Direct Bilirubin AST 381 H ALT 116 H Alkaline Phosphatase 255 H Total Creatine Kinase 79969 H CK-MB (CK-2) Troponin T C-Reactive Protein Serum Total Protein Total Protein 5.1 L Albumin 2.3 L Nmtbv-8-Exwbmdslo Heocr-2-Rvpyodvee PEP Interpretation Triglycerides LDL Cholesterol Direct HDL Cholesterol Free T4 PTH Intact Urine WBC (Auto) Urine Creatinine Salicylates Acetaminophen Crossmatch 03/20/19 03/20/19 03/20/19 14:41 14:45 18:50 WBC RBC Hgb Hct MCV MCHC RDW Plt Count Lymph % (Auto) [place] % (Auto) Lymph # [place] # Seg Neutrophils % Seg Neuts % (Manual) Lymphocytes % (Manual) Monocytes % (Manual) Nucleated RBC % Seg Neutrophils # Seg Neutrophils # Man Lymphocytes # (Manual) Monocytes # (Manual) PT INR D-Dimer Heparin Anti-Xa Level POC ABG pH ABG pH POC ABG pCO2 POC ABG pO2 ABG pO2 ABG HCO3 ABG O2 Saturation ABG Base Excess ABG Hemoglobin Oxyhemoglobin Sodium Potassium Chloride Carbon Dioxide BUN Creatinine Glucose POC Glucose 117 H Lactic Acid 2.90 H* Calcium Ionized Calcium Phosphorus Magnesium Iron TIBC Ferritin Total Bilirubin Direct Bilirubin AST ALT Alkaline Phosphatase Total Creatine Kinase CK-MB (CK-2) Troponin T C-Reactive Protein 13.30 H Serum Total Protein Total Protein Albumin Mnmcu-9-Reeyfltcg Iunjv-5-Nflpdsfeg PEP Interpretation Triglycerides LDL Cholesterol Direct HDL Cholesterol Free T4 PTH Intact Urine WBC (Auto) Urine Creatinine Salicylates Acetaminophen Crossmatch 03/20/19 03/21/19 03/21/19 21:55 04:26 04:26 WBC 37.8 H RBC Hgb Hct MCV MCHC RDW 15.4 H Plt Count 36 L Lymph % (Auto) [place] % (Auto) Lymph # [place] # Seg Neutrophils % Seg Neuts % (Manual) 93.0 H Lymphocytes % (Manual) 3.0 L Monocytes % (Manual) Nucleated RBC % 1.0 H Seg Neutrophils # 34.6 H Seg Neutrophils # Man 35.2 H Lymphocytes # (Manual) 1.1 L Monocytes # (Manual) PT INR D-Dimer Heparin Anti-Xa Level POC ABG pH ABG pH POC ABG pCO2 POC ABG pO2 ABG pO2 ABG HCO3 ABG O2 Saturation ABG Base Excess ABG Hemoglobin Oxyhemoglobin Sodium 131 L Potassium Chloride 90.7 L Carbon Dioxide 21 L BUN 69 H Creatinine 5.7 H Glucose 170 H POC Glucose 128 H Lactic Acid Calcium 6.1 L D Ionized Calcium Phosphorus Magnesium Iron TIBC Ferritin Total Bilirubin 9.50 H Direct Bilirubin AST 308 H ALT 124 H Alkaline Phosphatase 327 H Total Creatine Kinase 42606 H CK-MB (CK-2) Troponin T C-Reactive Protein Serum Total Protein Total Protein 5.7 L Albumin 2.6 L Wemnh-4-Ymclhbfmb Yusqa-4-Lkkpynrou PEP Interpretation Triglycerides LDL Cholesterol Direct HDL Cholesterol Free T4 PTH Intact Urine WBC (Auto) Urine Creatinine Salicylates Acetaminophen Crossmatch 03/21/19 03/21/19 03/21/19 05:17 05:39 08:29 WBC RBC Hgb Hct MCV MCHC RDW Plt Count Lymph % (Auto) [place] % (Auto) Lymph # [place] # Seg Neutrophils % Seg Neuts % (Manual) Lymphocytes % (Manual) Monocytes % (Manual) Nucleated RBC % Seg Neutrophils # Seg Neutrophils # Man Lymphocytes # (Manual) Monocytes # (Manual) PT INR D-Dimer Heparin Anti-Xa Level POC ABG pH ABG pH POC ABG pCO2 POC ABG pO2 209 H ABG pO2 ABG HCO3 ABG O2 Saturation ABG Base Excess ABG Hemoglobin Oxyhemoglobin Sodium Potassium Chloride Carbon Dioxide BUN Creatinine Glucose POC Glucose 145 H Lactic Acid Calcium Ionized Calcium Phosphorus Magnesium Iron TIBC Ferritin Total Bilirubin Direct Bilirubin AST ALT Alkaline Phosphatase Total Creatine Kinase 99810 H CK-MB (CK-2) Troponin T C-Reactive Protein Serum Total Protein Total Protein Albumin Oqvwa-2-Aksyholgr Tizau-7-Qnsmpgidm PEP Interpretation Triglycerides LDL Cholesterol Direct HDL Cholesterol Free T4 PTH Intact Urine WBC (Auto) Urine Creatinine Salicylates Acetaminophen Crossmatch 03/21/19 03/21/19 03/21/19 08:29 11:43 12:00 WBC RBC Hgb Hct MCV MCHC RDW Plt Count Lymph % (Auto) [place] % (Auto) Lymph # [place] # Seg Neutrophils % Seg Neuts % (Manual) Lymphocytes % (Manual) Monocytes % (Manual) Nucleated RBC % Seg Neutrophils # Seg Neutrophils # Man Lymphocytes # (Manual) Monocytes # (Manual) PT INR D-Dimer Heparin Anti-Xa Level POC ABG pH ABG pH POC ABG pCO2 POC ABG pO2 ABG pO2 ABG HCO3 ABG O2 Saturation ABG Base Excess ABG Hemoglobin Oxyhemoglobin Sodium Potassium Chloride Carbon Dioxide BUN Creatinine Glucose POC Glucose 123 H Lactic Acid 2.60 H* 2.20 H* Calcium Ionized Calcium Phosphorus Magnesium Iron TIBC Ferritin Total Bilirubin Direct Bilirubin AST ALT Alkaline Phosphatase Total Creatine Kinase CK-MB (CK-2) Troponin T C-Reactive Protein Serum Total Protein Total Protein Albumin Uslpk-4-Ioruycgjo Vfddo-9-Blesqzkxn PEP Interpretation Triglycerides LDL Cholesterol Direct HDL Cholesterol Free T4 PTH Intact Urine WBC (Auto) Urine Creatinine Salicylates Acetaminophen Crossmatch 03/21/19 03/21/19 03/21/19 14:11 18:28 19:32 WBC RBC Hgb Hct MCV MCHC RDW Plt Count Lymph % (Auto) [place] % (Auto) Lymph # [place] # Seg Neutrophils % Seg Neuts % (Manual) Lymphocytes % (Manual) Monocytes % (Manual) Nucleated RBC % Seg Neutrophils # Seg Neutrophils # Man Lymphocytes # (Manual) Monocytes # (Manual) PT INR D-Dimer Heparin Anti-Xa Level POC ABG pH 7.293 L ABG pH POC ABG pCO2 POC ABG pO2 ABG pO2 ABG HCO3 ABG O2 Saturation ABG Base Excess ABG Hemoglobin Oxyhemoglobin Sodium Potassium Chloride Carbon Dioxide BUN Creatinine Glucose POC Glucose 153 H Lactic Acid 2.10 H* Calcium Ionized Calcium Phosphorus Magnesium Iron TIBC Ferritin Total Bilirubin Direct Bilirubin AST ALT Alkaline Phosphatase Total Creatine Kinase CK-MB (CK-2) Troponin T C-Reactive Protein Serum Total Protein Total Protein Albumin Ntyzw-4-Idivmnnsg Myozy-3-Oamfsxbpw PEP Interpretation Triglycerides LDL Cholesterol Direct HDL Cholesterol Free T4 PTH Intact Urine WBC (Auto) Urine Creatinine Salicylates Acetaminophen Crossmatch 03/21/19 03/22/19 03/22/19 23:38 05:08 05:51 WBC RBC Hgb Hct MCV MCHC RDW Plt Count Lymph % (Auto) [place] % (Auto) Lymph # [place] # Seg Neutrophils % Seg Neuts % (Manual) Lymphocytes % (Manual) Monocytes % (Manual) Nucleated RBC % Seg Neutrophils # Seg Neutrophils # Man Lymphocytes # (Manual) Monocytes # (Manual) PT INR D-Dimer Heparin Anti-Xa Level POC ABG pH 7.283 L ABG pH POC ABG pCO2 POC ABG pO2 53 L ABG pO2 ABG HCO3 ABG O2 Saturation ABG Base Excess ABG Hemoglobin Oxyhemoglobin Sodium Potassium Chloride Carbon Dioxide BUN Creatinine Glucose POC Glucose 149 H 131 H Lactic Acid Calcium Ionized Calcium Phosphorus Magnesium Iron TIBC Ferritin Total Bilirubin Direct Bilirubin AST ALT Alkaline Phosphatase Total Creatine Kinase CK-MB (CK-2) Troponin T C-Reactive Protein Serum Total Protein Total Protein Albumin Qhumu-8-Bxmgcovgg Wngfg-0-Myhfzgbbn PEP Interpretation Triglycerides LDL Cholesterol Direct HDL Cholesterol Free T4 PTH Intact Urine WBC (Auto) Urine Creatinine Salicylates Acetaminophen Crossmatch 03/22/19 03/22/19 03/22/19 08:00 08:00 18:19 WBC 36.7 H RBC Hgb 11.0 L Hct 33.5 L MCV MCHC RDW 15.5 H Plt Count 43 L Lymph % (Auto) [place] % (Auto) Lymph # [place] # Seg Neutrophils % Seg Neuts % (Manual) 87.0 H Lymphocytes % (Manual) 7.0 L Monocytes % (Manual) Nucleated RBC % Seg Neutrophils # Seg Neutrophils # Man 31.9 H Lymphocytes # (Manual) Monocytes # (Manual) PT INR D-Dimer Heparin Anti-Xa Level POC ABG pH ABG pH POC ABG pCO2 46.4 H POC ABG pO2 108 H ABG pO2 ABG HCO3 ABG O2 Saturation ABG Base Excess ABG Hemoglobin Oxyhemoglobin Sodium 132 L Potassium 5.6 H Chloride 89.6 L Carbon Dioxide 20 L BUN 101 H Creatinine 7.4 H Glucose 124 H POC Glucose Lactic Acid Calcium 5.2 L* Ionized Calcium Phosphorus Magnesium Iron TIBC Ferritin Total Bilirubin 2.80 H Direct Bilirubin AST 119 H ALT 86 H Alkaline Phosphatase 245 H Total Creatine Kinase CK-MB (CK-2) Troponin T C-Reactive Protein Serum Total Protein Total Protein 5.6 L Albumin 2.5 L Nduwl-4-Tifsmtclb Kdkbw-4-Zkopbobgj PEP Interpretation Triglycerides LDL Cholesterol Direct HDL Cholesterol Free T4 PTH Intact Urine WBC (Auto) Urine Creatinine Salicylates Acetaminophen Crossmatch 03/22/19 03/23/19 03/23/19 20:37 04:49 05:28 WBC 35.9 H RBC Hgb 10.8 L Hct 33.2 L MCV MCHC RDW 15.5 H Plt Count 49 L Lymph % (Auto) [place] % (Auto) Lymph # [place] # Seg Neutrophils % Seg Neuts % (Manual) 81.0 H Lymphocytes % (Manual) 3.5 L Monocytes % (Manual) Nucleated RBC % Seg Neutrophils # Seg Neutrophils # Man 29.1 H Lymphocytes # (Manual) Monocytes # (Manual) 1.4 H PT INR D-Dimer Heparin Anti-Xa Level POC ABG pH 7.296 L ABG pH POC ABG pCO2 46.2 H POC ABG pO2 ABG pO2 ABG HCO3 ABG O2 Saturation ABG Base Excess ABG Hemoglobin Oxyhemoglobin Sodium 129 L Potassium 5.2 H Chloride 91.1 L Carbon Dioxide BUN 91 H Creatinine 6.6 H Glucose 190 H POC Glucose Lactic Acid Calcium 5.3 L* Ionized Calcium Phosphorus Magnesium Iron TIBC Ferritin Total Bilirubin 1.80 H Direct Bilirubin AST 80 H ALT 62 H Alkaline Phosphatase 209 H Total Creatine Kinase 9758 H CK-MB (CK-2) Troponin T C-Reactive Protein Serum Total Protein Total Protein 5.2 L Albumin 2.2 L Vxsnj-6-Qccbuoxbv Ercec-9-Kmjzcujxn PEP Interpretation Triglycerides LDL Cholesterol Direct HDL Cholesterol Free T4 PTH Intact Urine WBC (Auto) Urine Creatinine Salicylates Acetaminophen Crossmatch 03/23/19 03/23/19 03/23/19 05:28 05:31 11:33 WBC 29.7 H RBC 3.59 L Hgb 10.1 L Hct 31.1 L MCV MCHC RDW 15.4 H Plt Count 47 L Lymph % (Auto) [place] % (Auto) Lymph # [place] # Seg Neutrophils % Seg Neuts % (Manual) 89.0 H Lymphocytes % (Manual) 6.0 L Monocytes % (Manual) Nucleated RBC % 1.0 H Seg Neutrophils # Seg Neutrophils # Man 26.4 H Lymphocytes # (Manual) Monocytes # (Manual) PT INR D-Dimer Heparin Anti-Xa Level POC ABG pH ABG pH POC ABG pCO2 POC ABG pO2 ABG pO2 ABG HCO3 ABG O2 Saturation ABG Base Excess ABG Hemoglobin Oxyhemoglobin Sodium Potassium Chloride Carbon Dioxide BUN Creatinine Glucose POC Glucose 122 H 113 H Lactic Acid Calcium Ionized Calcium Phosphorus Magnesium Iron TIBC Ferritin Total Bilirubin Direct Bilirubin AST ALT Alkaline Phosphatase Total Creatine Kinase CK-MB (CK-2) Troponin T C-Reactive Protein Serum Total Protein Total Protein Albumin Kvrpn-8-Srskorjbu Aupjc-3-Yewxboflx PEP Interpretation Triglycerides LDL Cholesterol Direct HDL Cholesterol Free T4 PTH Intact Urine WBC (Auto) Urine Creatinine Salicylates Acetaminophen Crossmatch 03/23/19 03/24/19 03/24/19 17:47 00:00 04:50 WBC 35.0 H RBC Hgb 10.4 L Hct 32.4 L MCV MCHC RDW Plt Count 60 L Lymph % (Auto) [place] % (Auto) Lymph # [place] # Seg Neutrophils % Seg Neuts % (Manual) 93.0 H Lymphocytes % (Manual) 5.0 L Monocytes % (Manual) Nucleated RBC % 7.0 H Seg Neutrophils # Seg Neutrophils # Man 32.6 H Lymphocytes # (Manual) Monocytes # (Manual) PT INR D-Dimer Heparin Anti-Xa Level POC ABG pH ABG pH POC ABG pCO2 POC ABG pO2 ABG pO2 ABG HCO3 ABG O2 Saturation ABG Base Excess ABG Hemoglobin Oxyhemoglobin Sodium Potassium Chloride Carbon Dioxide BUN Creatinine Glucose POC Glucose 111 H 108 H Lactic Acid Calcium Ionized Calcium Phosphorus Magnesium Iron TIBC Ferritin Total Bilirubin Direct Bilirubin AST ALT Alkaline Phosphatase Total Creatine Kinase CK-MB (CK-2) Troponin T C-Reactive Protein Serum Total Protein Total Protein Albumin Dtpqj-0-Yucppdgxp Qpste-3-Shbprodep PEP Interpretation Triglycerides LDL Cholesterol Direct HDL Cholesterol Free T4 PTH Intact Urine WBC (Auto) Urine Creatinine Salicylates Acetaminophen Crossmatch 03/24/19 03/24/19 03/24/19 04:50 05:06 12:55 WBC RBC Hgb Hct MCV MCHC RDW Plt Count Lymph % (Auto) [place] % (Auto) Lymph # [place] # Seg Neutrophils % Seg Neuts % (Manual) Lymphocytes % (Manual) Monocytes % (Manual) Nucleated RBC % Seg Neutrophils # Seg Neutrophils # Man Lymphocytes # (Manual) Monocytes # (Manual) PT INR D-Dimer Heparin Anti-Xa Level POC ABG pH ABG pH POC ABG pCO2 POC ABG pO2 ABG pO2 ABG HCO3 ABG O2 Saturation ABG Base Excess ABG Hemoglobin Oxyhemoglobin Sodium 134 L Potassium 5.1 H Chloride 95.3 L Carbon Dioxide 21 L BUN 85 H Creatinine 6.4 H Glucose 109 H POC Glucose 112 H 110 H Lactic Acid Calcium 5.8 L* Ionized Calcium Phosphorus Magnesium Iron TIBC Ferritin Total Bilirubin Direct Bilirubin AST ALT Alkaline Phosphatase Total Creatine Kinase 5747 H CK-MB (CK-2) Troponin T C-Reactive Protein Serum Total Protein Total Protein Albumin Sfzkw-8-Wdlfevhiv Yecda-1-Tctahgkai PEP Interpretation Triglycerides LDL Cholesterol Direct HDL Cholesterol Free T4 PTH Intact Urine WBC (Auto) Urine Creatinine Salicylates Acetaminophen Crossmatch 03/24/19 03/25/19 03/25/19 23:29 05:00 05:00 WBC RBC Hgb Hct MCV MCHC RDW Plt Count Lymph % (Auto) [place] % (Auto) Lymph # [place] # Seg Neutrophils % Seg Neuts % (Manual) Lymphocytes % (Manual) Monocytes % (Manual) Nucleated RBC % Seg Neutrophils # Seg Neutrophils # Man Lymphocytes # (Manual) Monocytes # (Manual) PT INR D-Dimer Heparin Anti-Xa Level POC ABG pH ABG pH POC ABG pCO2 POC ABG pO2 ABG pO2 ABG HCO3 ABG O2 Saturation ABG Base Excess ABG Hemoglobin Oxyhemoglobin Sodium 133 L Potassium Chloride 94.0 L Carbon Dioxide 21 L BUN 81 H Creatinine 6.4 H Glucose POC Glucose 109 H Lactic Acid Calcium 5.5 L* Ionized Calcium Phosphorus Magnesium Iron TIBC Ferritin Total Bilirubin Direct Bilirubin AST 80 H ALT Alkaline Phosphatase 202 H Total Creatine Kinase 3589 H CK-MB (CK-2) Troponin T C-Reactive Protein Serum Total Protein Total Protein 5.3 L Albumin 2.4 L Abqui-4-Pecngyljb Ithgb-9-Yloqvehcv PEP Interpretation Triglycerides LDL Cholesterol Direct HDL Cholesterol Free T4 PTH Intact 329.9 H Urine WBC (Auto) Urine Creatinine Salicylates Acetaminophen Crossmatch 03/25/19 03/25/19 03/26/19 05:00 06:30 04:30 WBC 23.3 H RBC 3.61 L Hgb 10.2 L Hct 31.2 L MCV MCHC RDW Plt Count 57 L Lymph % (Auto) [place] % (Auto) Lymph # [place] # Seg Neutrophils % Seg Neuts % (Manual) 92.0 H Lymphocytes % (Manual) 6.0 L Monocytes % (Manual) Nucleated RBC % Seg Neutrophils # Seg Neutrophils # Man 21.4 H Lymphocytes # (Manual) Monocytes # (Manual) PT INR D-Dimer Heparin Anti-Xa Level POC ABG pH ABG pH 7.326 L POC ABG pCO2 POC ABG pO2 ABG pO2 109.5 H 137.4 H ABG HCO3 18.8 L 18.6 L ABG O2 Saturation ABG Base Excess -4.4 L -6.8 L ABG Hemoglobin 10.1 L 9.9 L Oxyhemoglobin Sodium Potassium Chloride Carbon Dioxide BUN Creatinine Glucose POC Glucose Lactic Acid Calcium Ionized Calcium Phosphorus Magnesium Iron TIBC Ferritin Total Bilirubin Direct Bilirubin AST ALT Alkaline Phosphatase Total Creatine Kinase CK-MB (CK-2) Troponin T C-Reactive Protein Serum Total Protein Total Protein Albumin Sdwdo-8-Hyccacqty Sfejo-2-Vvuugogvj PEP Interpretation Triglycerides LDL Cholesterol Direct HDL Cholesterol Free T4 PTH Intact Urine WBC (Auto) Urine Creatinine Salicylates Acetaminophen Crossmatch 03/26/19 03/26/19 03/26/19 23:22 Unknown Unknown WBC 19.5 H RBC 3.44 L Hgb 9.8 L Hct 29.9 L MCV MCHC RDW Plt Count 85 L Lymph % (Auto) [place] % (Auto) Lymph # [place] # Seg Neutrophils % Seg Neuts % (Manual) 95.0 H Lymphocytes % (Manual) 3.0 L Monocytes % (Manual) Nucleated RBC % Seg Neutrophils # Seg Neutrophils # Man 18.5 H Lymphocytes # (Manual) 0.6 L Monocytes # (Manual) PT INR D-Dimer Heparin Anti-Xa Level POC ABG pH ABG pH POC ABG pCO2 POC ABG pO2 ABG pO2 ABG HCO3 ABG O2 Saturation ABG Base Excess ABG Hemoglobin Oxyhemoglobin Sodium 135 L Potassium 5.2 H D Chloride 92.2 L Carbon Dioxide 18 L BUN 109 H Creatinine 8.5 H Glucose 117 H POC Glucose 69 L Lactic Acid Calcium 4.5 L* D Ionized Calcium Phosphorus Magnesium Iron TIBC Ferritin Total Bilirubin Direct Bilirubin AST ALT Alkaline Phosphatase Total Creatine Kinase 4527 H CK-MB (CK-2) Troponin T C-Reactive Protein Serum Total Protein Total Protein Albumin Bgfmp-9-Jtzghfngd Xotsw-5-Qeyypivzw PEP Interpretation Triglycerides LDL Cholesterol Direct HDL Cholesterol Free T4 PTH Intact Urine WBC (Auto) Urine Creatinine Salicylates Acetaminophen Crossmatch 03/27/19 03/27/19 03/27/19 04:30 04:30 09:00 WBC 19.2 H RBC 3.42 L Hgb 9.9 L Hct 30.0 L MCV MCHC RDW Plt Count 84 L Lymph % (Auto) [place] % (Auto) Lymph # [place] # Seg Neutrophils % Seg Neuts % (Manual) Lymphocytes % (Manual) Monocytes % (Manual) Nucleated RBC % Seg Neutrophils # Seg Neutrophils # Man Lymphocytes # (Manual) Monocytes # (Manual) PT INR D-Dimer Heparin Anti-Xa Level POC ABG pH ABG pH POC ABG pCO2 POC ABG pO2 ABG pO2 ABG HCO3 ABG O2 Saturation ABG Base Excess ABG Hemoglobin Oxyhemoglobin Sodium 135 L Potassium Chloride 93.5 L Carbon Dioxide BUN 84 H Creatinine 7.1 H Glucose POC Glucose Lactic Acid Calcium 5.0 L* Ionized Calcium Phosphorus Magnesium Iron TIBC Ferritin Total Bilirubin Direct Bilirubin AST 78 H ALT Alkaline Phosphatase 135 H Total Creatine Kinase 4677 H CK-MB (CK-2) Troponin T C-Reactive Protein Serum Total Protein Total Protein 4.8 L Albumin 2.3 L Iatbh-4-Piyemugjz Raeix-6-Dyqafmclq PEP Interpretation Triglycerides 409 H LDL Cholesterol Direct HDL Cholesterol Free T4 PTH Intact Urine WBC (Auto) Urine Creatinine Salicylates Acetaminophen Crossmatch 03/27/19 03/27/19 03/27/19 12:37 14:15 14:15 WBC RBC Hgb 9.7 L Hct 29.5 L MCV MCHC RDW Plt Count 87 L Lymph % (Auto) [place] % (Auto) Lymph # [place] # Seg Neutrophils % Seg Neuts % (Manual) Lymphocytes % (Manual) Monocytes % (Manual) Nucleated RBC % Seg Neutrophils # Seg Neutrophils # Man Lymphocytes # (Manual) Monocytes # (Manual) PT 15.9 H INR 1.30 H D-Dimer Heparin Anti-Xa Level POC ABG pH ABG pH POC ABG pCO2 POC ABG pO2 ABG pO2 ABG HCO3 ABG O2 Saturation ABG Base Excess ABG Hemoglobin Oxyhemoglobin Sodium Potassium Chloride Carbon Dioxide BUN Creatinine Glucose POC Glucose 129 H Lactic Acid Calcium Ionized Calcium Phosphorus Magnesium Iron TIBC Ferritin Total Bilirubin Direct Bilirubin AST ALT Alkaline Phosphatase Total Creatine Kinase CK-MB (CK-2) Troponin T C-Reactive Protein Serum Total Protein Total Protein Albumin Xlsdb-7-Uelfvxetn Jeofa-7-Uoqhaekjp PEP Interpretation Triglycerides LDL Cholesterol Direct HDL Cholesterol Free T4 PTH Intact Urine WBC (Auto) Urine Creatinine Salicylates Acetaminophen Crossmatch 03/27/19 03/27/19 03/27/19 18:00 19:22 19:23 WBC RBC Hgb Hct MCV MCHC RDW Plt Count Lymph % (Auto) [place] % (Auto) Lymph # [place] # Seg Neutrophils % Seg Neuts % (Manual) Lymphocytes % (Manual) Monocytes % (Manual) Nucleated RBC % Seg Neutrophils # Seg Neutrophils # Man Lymphocytes # (Manual) Monocytes # (Manual) PT INR D-Dimer Heparin Anti-Xa Level < 0.10 L POC ABG pH ABG pH POC ABG pCO2 POC ABG pO2 ABG pO2 ABG HCO3 ABG O2 Saturation ABG Base Excess ABG Hemoglobin Oxyhemoglobin Sodium Potassium Chloride Carbon Dioxide BUN Creatinine Glucose POC Glucose 121 H Lactic Acid Calcium Ionized Calcium Phosphorus Magnesium Iron TIBC Ferritin Total Bilirubin Direct Bilirubin AST ALT Alkaline Phosphatase Total Creatine Kinase 4517 H CK-MB (CK-2) Troponin T C-Reactive Protein Serum Total Protein Total Protein Albumin Hfhse-5-Fnpzimxqq Dgmll-3-Zrazqowya PEP Interpretation Triglycerides LDL Cholesterol Direct HDL Cholesterol Free T4 PTH Intact Urine WBC (Auto) Urine Creatinine Salicylates Acetaminophen Crossmatch 03/27/19 03/27/19 03/28/19 22:10 23:52 03:49 WBC RBC Hgb Hct MCV MCHC RDW Plt Count Lymph % (Auto) [place] % (Auto) Lymph # [place] # Seg Neutrophils % Seg Neuts % (Manual) Lymphocytes % (Manual) Monocytes % (Manual) Nucleated RBC % Seg Neutrophils # Seg Neutrophils # Man Lymphocytes # (Manual) Monocytes # (Manual) PT INR D-Dimer Heparin Anti-Xa Level POC ABG pH 7.338 L ABG pH POC ABG pCO2 33.1 L POC ABG pO2 ABG pO2 ABG HCO3 ABG O2 Saturation ABG Base Excess ABG Hemoglobin Oxyhemoglobin Sodium Potassium Chloride Carbon Dioxide BUN Creatinine Glucose POC Glucose 113 H 117 H Lactic Acid Calcium Ionized Calcium Phosphorus Magnesium Iron TIBC Ferritin Total Bilirubin Direct Bilirubin AST ALT Alkaline Phosphatase Total Creatine Kinase CK-MB (CK-2) Troponin T C-Reactive Protein Serum Total Protein Total Protein Albumin Kasnm-1-Qfnjggcoj Targz-6-Nvgguwnrh PEP Interpretation Triglycerides LDL Cholesterol Direct HDL Cholesterol Free T4 PTH Intact Urine WBC (Auto) Urine Creatinine Salicylates Acetaminophen Crossmatch 03/28/19 03/28/19 03/28/19 05:13 05:13 06:18 WBC RBC Hgb Hct MCV MCHC RDW Plt Count Lymph % (Auto) [place] % (Auto) Lymph # [place] # Seg Neutrophils % Seg Neuts % (Manual) Lymphocytes % (Manual) Monocytes % (Manual) Nucleated RBC % Seg Neutrophils # Seg Neutrophils # Man Lymphocytes # (Manual) Monocytes # (Manual) PT INR D-Dimer Heparin Anti-Xa Level 0.23 L POC ABG pH ABG pH POC ABG pCO2 POC ABG pO2 ABG pO2 ABG HCO3 ABG O2 Saturation ABG Base Excess ABG Hemoglobin Oxyhemoglobin Sodium 135 L Potassium 5.5 H D Chloride 95.1 L Carbon Dioxide 16 L D BUN 129 H Creatinine 9.3 H Glucose 158 H POC Glucose 202 H Lactic Acid Calcium 4.0 L* D Ionized Calcium Phosphorus 12.40 H Magnesium Iron TIBC Ferritin Total Bilirubin Direct Bilirubin AST ALT Alkaline Phosphatase Total Creatine Kinase 4266 H CK-MB (CK-2) Troponin T C-Reactive Protein Serum Total Protein Total Protein Albumin Yfzpa-5-Xfkoooblq Vqxal-2-Mjiapbvcs PEP Interpretation Triglycerides LDL Cholesterol Direct HDL Cholesterol Free T4 PTH Intact Urine WBC (Auto) Urine Creatinine Salicylates Acetaminophen Crossmatch 03/28/19 03/28/19 03/28/19 08:25 10:00 12:00 WBC RBC Hgb 4.9 L* D Hct 15.4 L* D MCV MCHC RDW Plt Count Lymph % (Auto) [place] % (Auto) Lymph # [place] # Seg Neutrophils % Seg Neuts % (Manual) Lymphocytes % (Manual) Monocytes % (Manual) Nucleated RBC % Seg Neutrophils # Seg Neutrophils # Man Lymphocytes # (Manual) Monocytes # (Manual) PT 17.9 H INR 1.52 H D-Dimer 4845.98 H Heparin Anti-Xa Level POC ABG pH ABG pH POC ABG pCO2 POC ABG pO2 ABG pO2 ABG HCO3 ABG O2 Saturation ABG Base Excess ABG Hemoglobin Oxyhemoglobin Sodium Potassium Chloride Carbon Dioxide BUN Creatinine Glucose POC Glucose Lactic Acid Calcium Ionized Calcium Phosphorus Magnesium Iron TIBC Ferritin Total Bilirubin Direct Bilirubin AST ALT Alkaline Phosphatase Total Creatine Kinase CK-MB (CK-2) Troponin T C-Reactive Protein Serum Total Protein Total Protein Albumin Gvbvm-6-Btivuxykm Rlscs-0-Drefmstmh PEP Interpretation Triglycerides LDL Cholesterol Direct HDL Cholesterol Free T4 PTH Intact Urine WBC (Auto) Urine Creatinine Salicylates Acetaminophen Crossmatch See Detail 03/28/19 03/28/19 03/28/19 12:28 14:10 17:43 WBC RBC Hgb 5.9 L* Hct 18.3 L* MCV MCHC RDW Plt Count Lymph % (Auto) [place] % (Auto) Lymph # [place] # Seg Neutrophils % Seg Neuts % (Manual) Lymphocytes % (Manual) Monocytes % (Manual) Nucleated RBC % Seg Neutrophils # Seg Neutrophils # Man Lymphocytes # (Manual) Monocytes # (Manual) PT INR D-Dimer Heparin Anti-Xa Level POC ABG pH ABG pH POC ABG pCO2 POC ABG pO2 ABG pO2 ABG HCO3 ABG O2 Saturation ABG Base Excess ABG Hemoglobin Oxyhemoglobin Sodium Potassium Chloride Carbon Dioxide BUN Creatinine Glucose POC Glucose 153 H 159 H Lactic Acid Calcium Ionized Calcium Phosphorus Magnesium Iron TIBC Ferritin Total Bilirubin Direct Bilirubin AST ALT Alkaline Phosphatase Total Creatine Kinase CK-MB (CK-2) Troponin T C-Reactive Protein Serum Total Protein Total Protein Albumin Myrfu-5-Pfykmkdpl Vehug-7-Hxhszifnh PEP Interpretation Triglycerides LDL Cholesterol Direct HDL Cholesterol Free T4 PTH Intact Urine WBC (Auto) Urine Creatinine Salicylates Acetaminophen Crossmatch 03/28/19 03/28/19 03/28/19 18:10 Unknown 23:59 WBC 24.8 H RBC 3.42 L Hgb 10.2 L D Hct 31.1 L D MCV MCHC RDW 15.4 H Plt Count 54 L Lymph % (Auto) [place] % (Auto) Lymph # [place] # Seg Neutrophils % Seg Neuts % (Manual) 91.0 H Lymphocytes % (Manual) 8.0 L Monocytes % (Manual) Nucleated RBC % Seg Neutrophils # Seg Neutrophils # Man 22.6 H Lymphocytes # (Manual) Monocytes # (Manual) PT INR D-Dimer Heparin Anti-Xa Level POC ABG pH ABG pH POC ABG pCO2 POC ABG pO2 ABG pO2 ABG HCO3 ABG O2 Saturation ABG Base Excess ABG Hemoglobin Oxyhemoglobin Sodium Potassium 5.7 H Chloride Carbon Dioxide BUN Creatinine Glucose POC Glucose 107 H Lactic Acid Calcium Ionized Calcium Phosphorus Magnesium Iron TIBC Ferritin Total Bilirubin Direct Bilirubin AST ALT Alkaline Phosphatase Total Creatine Kinase CK-MB (CK-2) Troponin T C-Reactive Protein Serum Total Protein Total Protein Albumin Ojlih-2-Ildzdbeuj Iurtj-8-Sxkabfpru PEP Interpretation Triglycerides LDL Cholesterol Direct HDL Cholesterol Free T4 PTH Intact Urine WBC (Auto) Urine Creatinine Salicylates Acetaminophen Crossmatch 03/29/19 03/29/19 03/29/19 04:29 05:46 06:22 WBC RBC Hgb 8.6 L Hct 25.7 L MCV MCHC RDW Plt Count 93 L Lymph % (Auto) [place] % (Auto) Lymph # [place] # Seg Neutrophils % Seg Neuts % (Manual) Lymphocytes % (Manual) Monocytes % (Manual) Nucleated RBC % Seg Neutrophils # Seg Neutrophils # Man Lymphocytes # (Manual) Monocytes # (Manual) PT INR D-Dimer Heparin Anti-Xa Level POC ABG pH ABG pH POC ABG pCO2 32.2 L POC ABG pO2 ABG pO2 ABG HCO3 ABG O2 Saturation ABG Base Excess ABG Hemoglobin Oxyhemoglobin Sodium Potassium Chloride Carbon Dioxide BUN Creatinine Glucose POC Glucose 113 H Lactic Acid Calcium Ionized Calcium Phosphorus Magnesium Iron TIBC Ferritin Total Bilirubin Direct Bilirubin AST ALT Alkaline Phosphatase Total Creatine Kinase CK-MB (CK-2) Troponin T C-Reactive Protein Serum Total Protein Total Protein Albumin Zcwss-0-Awkihgtaa Frjpz-3-Nvtnzdfwz PEP Interpretation Triglycerides LDL Cholesterol Direct HDL Cholesterol Free T4 PTH Intact Urine WBC (Auto) Urine Creatinine Salicylates Acetaminophen Crossmatch 03/29/19 03/29/19 03/29/19 06:22 06:22 06:22 WBC 23.2 H RBC 2.91 L Hgb 8.6 L Hct 25.8 L MCV MCHC RDW Plt Count 91 L Lymph % (Auto) [place] % (Auto) Lymph # [place] # Seg Neutrophils % Seg Neuts % (Manual) Lymphocytes % (Manual) Monocytes % (Manual) Nucleated RBC % Seg Neutrophils # Seg Neutrophils # Man Lymphocytes # (Manual) Monocytes # (Manual) PT INR D-Dimer Heparin Anti-Xa Level POC ABG pH ABG pH POC ABG pCO2 POC ABG pO2 ABG pO2 ABG HCO3 ABG O2 Saturation ABG Base Excess ABG Hemoglobin Oxyhemoglobin Sodium 133 L Potassium Chloride 93.8 L Carbon Dioxide 18 L BUN 109 H Creatinine 7.4 H Glucose 124 H POC Glucose Lactic Acid Calcium 4.6 L* Ionized Calcium Phosphorus Magnesium Iron TIBC Ferritin Total Bilirubin Direct Bilirubin AST ALT Alkaline Phosphatase Total Creatine Kinase 3401 H CK-MB (CK-2) Troponin T C-Reactive Protein Serum Total Protein Total Protein Albumin Roeqk-1-Huxqslvrs Szavf-5-Ipsddfanb PEP Interpretation Triglycerides 309 H LDL Cholesterol Direct HDL Cholesterol Free T4 PTH Intact Urine WBC (Auto) Urine Creatinine Salicylates Acetaminophen Crossmatch 03/29/19 03/29/19 03/29/19 11:48 11:48 18:24 WBC RBC Hgb 7.8 L Hct 23.2 L MCV MCHC RDW Plt Count Lymph % (Auto) [place] % (Auto) Lymph # [place] # Seg Neutrophils % Seg Neuts % (Manual) Lymphocytes % (Manual) Monocytes % (Manual) Nucleated RBC % Seg Neutrophils # Seg Neutrophils # Man Lymphocytes # (Manual) Monocytes # (Manual) PT 15.3 H INR 1.24 H D-Dimer Heparin Anti-Xa Level POC ABG pH ABG pH POC ABG pCO2 POC ABG pO2 ABG pO2 ABG HCO3 ABG O2 Saturation ABG Base Excess ABG Hemoglobin Oxyhemoglobin Sodium Potassium Chloride Carbon Dioxide BUN Creatinine Glucose POC Glucose 122 H Lactic Acid Calcium Ionized Calcium Phosphorus Magnesium Iron TIBC Ferritin Total Bilirubin Direct Bilirubin AST ALT Alkaline Phosphatase Total Creatine Kinase CK-MB (CK-2) Troponin T C-Reactive Protein Serum Total Protein Total Protein Albumin Wscld-5-Omxdlgbpc Qbonw-8-Pchqylfyo PEP Interpretation Triglycerides LDL Cholesterol Direct HDL Cholesterol Free T4 PTH Intact Urine WBC (Auto) Urine Creatinine Salicylates Acetaminophen Crossmatch 03/30/19 03/30/19 03/30/19 00:40 04:31 05:04 WBC RBC Hgb 7.6 L Hct 23.0 L MCV MCHC RDW Plt Count Lymph % (Auto) [place] % (Auto) Lymph # [place] # Seg Neutrophils % Seg Neuts % (Manual) Lymphocytes % (Manual) Monocytes % (Manual) Nucleated RBC % Seg Neutrophils # Seg Neutrophils # Man Lymphocytes # (Manual) Monocytes # (Manual) PT INR D-Dimer Heparin Anti-Xa Level POC ABG pH 7.346 L ABG pH POC ABG pCO2 POC ABG pO2 62 L ABG pO2 ABG HCO3 ABG O2 Saturation ABG Base Excess ABG Hemoglobin Oxyhemoglobin Sodium Potassium Chloride Carbon Dioxide BUN 79 H Creatinine 6.4 H Glucose POC Glucose Lactic Acid Calcium 6.1 L D Ionized Calcium Phosphorus Magnesium Iron TIBC Ferritin Total Bilirubin Direct Bilirubin AST ALT Alkaline Phosphatase Total Creatine Kinase CK-MB (CK-2) Troponin T C-Reactive Protein Serum Total Protein Total Protein Albumin Exsbb-2-Bjdiwhqqo Ngoac-0-Eialqntyg PEP Interpretation Triglycerides LDL Cholesterol Direct HDL Cholesterol Free T4 PTH Intact Urine WBC (Auto) Urine Creatinine Salicylates Acetaminophen Crossmatch 03/30/19 03/30/19 03/30/19 08:45 12:09 22:43 WBC 14.3 H RBC 2.33 L Hgb 7.0 L 7.4 L Hct 21.0 L 22.3 L MCV MCHC RDW 15.6 H Plt Count 135 L Lymph % (Auto) [place] % (Auto) Lymph # [place] # Seg Neutrophils % Seg Neuts % (Manual) Lymphocytes % (Manual) Monocytes % (Manual) Nucleated RBC % Seg Neutrophils # Seg Neutrophils # Man Lymphocytes # (Manual) Monocytes # (Manual) PT INR D-Dimer Heparin Anti-Xa Level POC ABG pH ABG pH POC ABG pCO2 POC ABG pO2 ABG pO2 ABG HCO3 ABG O2 Saturation ABG Base Excess ABG Hemoglobin Oxyhemoglobin Sodium Potassium Chloride Carbon Dioxide BUN Creatinine Glucose POC Glucose Lactic Acid Calcium Ionized Calcium 3.7 L Phosphorus Magnesium Iron TIBC Ferritin Total Bilirubin Direct Bilirubin AST ALT Alkaline Phosphatase Total Creatine Kinase CK-MB (CK-2) Troponin T C-Reactive Protein Serum Total Protein Total Protein Albumin Oefri-2-Fgugcslwu Seovm-7-Uahtpwucw PEP Interpretation Triglycerides LDL Cholesterol Direct HDL Cholesterol Free T4 PTH Intact Urine WBC (Auto) Urine Creatinine Salicylates Acetaminophen Crossmatch 03/30/19 03/30/19 03/31/19 23:38 Unknown 04:44 WBC 11.5 H RBC 2.40 L Hgb 7.3 L Hct 21.9 L MCV MCHC RDW 15.4 H Plt Count Lymph % (Auto) 10.6 L [place] % (Auto) Lymph # [place] # Seg Neutrophils % 81.7 H Seg Neuts % (Manual) Lymphocytes % (Manual) Monocytes % (Manual) Nucleated RBC % Seg Neutrophils # 9.4 H Seg Neutrophils # Man Lymphocytes # (Manual) Monocytes # (Manual) PT INR D-Dimer Heparin Anti-Xa Level POC ABG pH ABG pH POC ABG pCO2 POC ABG pO2 ABG pO2 ABG HCO3 ABG O2 Saturation ABG Base Excess ABG Hemoglobin Oxyhemoglobin Sodium Potassium Chloride Carbon Dioxide BUN Creatinine Glucose POC Glucose 155 H Lactic Acid Calcium Ionized Calcium Phosphorus Magnesium Iron TIBC Ferritin Total Bilirubin Direct Bilirubin 0.4 H AST 63 H ALT Alkaline Phosphatase Total Creatine Kinase CK-MB (CK-2) Troponin T C-Reactive Protein Serum Total Protein Total Protein 4.9 L Albumin 2.2 L Xcjua-7-Dvfzuhprg Cnvzd-7-Bpfzufrxl PEP Interpretation Triglycerides LDL Cholesterol Direct HDL Cholesterol Free T4 PTH Intact Urine WBC (Auto) Urine Creatinine Salicylates Acetaminophen Crossmatch 03/31/19 03/31/19 03/31/19 04:44 05:44 08:20 WBC RBC Hgb Hct MCV MCHC RDW Plt Count Lymph % (Auto) [place] % (Auto) Lymph # [place] # Seg Neutrophils % Seg Neuts % (Manual) Lymphocytes % (Manual) Monocytes % (Manual) Nucleated RBC % Seg Neutrophils # Seg Neutrophils # Man Lymphocytes # (Manual) Monocytes # (Manual) PT INR D-Dimer Heparin Anti-Xa Level POC ABG pH ABG pH POC ABG pCO2 53.5 H POC ABG pO2 62 L ABG pO2 ABG HCO3 ABG O2 Saturation ABG Base Excess ABG Hemoglobin Oxyhemoglobin Sodium 135 L Potassium Chloride 96.7 L Carbon Dioxide 19 L BUN 94 H Creatinine 7.8 H Glucose POC Glucose Lactic Acid Calcium 5.3 L* Ionized Calcium Phosphorus 8.20 H Magnesium Iron TIBC Ferritin Total Bilirubin Direct Bilirubin 0.4 H AST 60 H ALT Alkaline Phosphatase Total Creatine Kinase CK-MB (CK-2) Troponin T C-Reactive Protein Serum Total Protein Total Protein 4.8 L Albumin 2.1 L Qeuio-7-Vimmesqmu Xneii-0-Hunahypfk PEP Interpretation Triglycerides LDL Cholesterol Direct HDL Cholesterol Free T4 PTH Intact Urine WBC (Auto) Urine Creatinine Salicylates Acetaminophen Crossmatch 03/31/19 04/01/19 04/01/19 22:14 04:27 04:27 WBC RBC 2.60 L Hgb 8.0 L Hct 24.1 L MCV MCHC RDW 15.7 H Plt Count Lymph % (Auto) 7.9 L [place] % (Auto) Lymph # 0.7 L [place] # Seg Neutrophils % 83.6 H Seg Neuts % (Manual) Lymphocytes % (Manual) Monocytes % (Manual) Nucleated RBC % Seg Neutrophils # Seg Neutrophils # Man Lymphocytes # (Manual) Monocytes # (Manual) PT INR D-Dimer Heparin Anti-Xa Level POC ABG pH 7.286 L ABG pH POC ABG pCO2 54.7 H POC ABG pO2 179 H ABG pO2 ABG HCO3 ABG O2 Saturation ABG Base Excess ABG Hemoglobin Oxyhemoglobin Sodium Potassium Chloride Carbon Dioxide BUN 68 H Creatinine 6.6 H Glucose POC Glucose Lactic Acid Calcium 6.5 L D Ionized Calcium Phosphorus 7.30 H Magnesium Iron TIBC Ferritin Total Bilirubin Direct Bilirubin AST ALT Alkaline Phosphatase Total Creatine Kinase 1652 H CK-MB (CK-2) Troponin T C-Reactive Protein Serum Total Protein Total Protein Albumin Zzxts-3-Xkolbqzsn Dbqzo-7-Yhnuzdbgf PEP Interpretation Triglycerides LDL Cholesterol Direct HDL Cholesterol Free T4 PTH Intact Urine WBC (Auto) Urine Creatinine Salicylates Acetaminophen Crossmatch 04/01/19 04/01/19 04/01/19 05:14 05:37 18:37 WBC RBC Hgb Hct MCV MCHC RDW Plt Count Lymph % (Auto) [place] % (Auto) Lymph # [place] # Seg Neutrophils % Seg Neuts % (Manual) Lymphocytes % (Manual) Monocytes % (Manual) Nucleated RBC % Seg Neutrophils # Seg Neutrophils # Man Lymphocytes # (Manual) Monocytes # (Manual) PT INR D-Dimer Heparin Anti-Xa Level POC ABG pH 7.283 L ABG pH POC ABG pCO2 53.4 H POC ABG pO2 241 H ABG pO2 ABG HCO3 ABG O2 Saturation ABG Base Excess ABG Hemoglobin Oxyhemoglobin Sodium Potassium Chloride Carbon Dioxide BUN Creatinine Glucose POC Glucose 111 H 119 H Lactic Acid Calcium Ionized Calcium Phosphorus Magnesium Iron TIBC Ferritin Total Bilirubin Direct Bilirubin AST ALT Alkaline Phosphatase Total Creatine Kinase CK-MB (CK-2) Troponin T C-Reactive Protein Serum Total Protein Total Protein Albumin Udxpl-1-Ousvzvttk Anztl-0-Hfgedoidg PEP Interpretation Triglycerides LDL Cholesterol Direct HDL Cholesterol Free T4 PTH Intact Urine WBC (Auto) Urine Creatinine Salicylates Acetaminophen Crossmatch 04/01/19 04/02/19 04/02/19 21:28 04:40 05:03 WBC RBC 2.36 L Hgb 7.2 L Hct 21.9 L MCV MCHC RDW 16.0 H Plt Count Lymph % (Auto) 10.8 L [place] % (Auto) Lymph # 0.8 L [place] # Seg Neutrophils % 80.3 H Seg Neuts % (Manual) Lymphocytes % (Manual) Monocytes % (Manual) Nucleated RBC % Seg Neutrophils # Seg Neutrophils # Man Lymphocytes # (Manual) Monocytes # (Manual) PT INR D-Dimer Heparin Anti-Xa Level POC ABG pH 7.299 L 7.300 L ABG pH POC ABG pCO2 48.2 H 45.2 H POC ABG pO2 133 H 107 H ABG pO2 ABG HCO3 ABG O2 Saturation ABG Base Excess ABG Hemoglobin Oxyhemoglobin Sodium Potassium Chloride Carbon Dioxide BUN Creatinine Glucose POC Glucose Lactic Acid Calcium Ionized Calcium Phosphorus Magnesium Iron TIBC Ferritin Total Bilirubin Direct Bilirubin AST ALT Alkaline Phosphatase Total Creatine Kinase CK-MB (CK-2) Troponin T C-Reactive Protein Serum Total Protein Total Protein Albumin Yhgjh-2-Blgmubezk Cuple-8-Sskqrgxnw PEP Interpretation Triglycerides LDL Cholesterol Direct HDL Cholesterol Free T4 PTH Intact Urine WBC (Auto) Urine Creatinine Salicylates Acetaminophen Crossmatch 04/02/19 04/02/19 04/02/19 05:03 05:03 12:15 WBC RBC Hgb 7.4 L Hct 22.6 L MCV MCHC RDW Plt Count Lymph % (Auto) [place] % (Auto) Lymph # [place] # Seg Neutrophils % Seg Neuts % (Manual) Lymphocytes % (Manual) Monocytes % (Manual) Nucleated RBC % Seg Neutrophils # Seg Neutrophils # Man Lymphocytes # (Manual) Monocytes # (Manual) PT INR D-Dimer Heparin Anti-Xa Level POC ABG pH ABG pH POC ABG pCO2 POC ABG pO2 ABG pO2 ABG HCO3 ABG O2 Saturation ABG Base Excess ABG Hemoglobin Oxyhemoglobin Sodium 136 L Potassium Chloride 97.8 L Carbon Dioxide 18 L BUN 82 H Creatinine 8.2 H Glucose POC Glucose Lactic Acid Calcium 6.7 L Ionized Calcium Phosphorus 7.50 H Magnesium Iron 26 L TIBC 138 L Ferritin 607.0 H Total Bilirubin Direct Bilirubin AST ALT Alkaline Phosphatase Total Creatine Kinase CK-MB (CK-2) Troponin T C-Reactive Protein Serum Total Protein Total Protein Albumin Atmdg-6-Xuoovwyal Wzmrx-1-Eeqindjmm PEP Interpretation Triglycerides LDL Cholesterol Direct HDL Cholesterol Free T4 PTH Intact Urine WBC (Auto) Urine Creatinine Salicylates Acetaminophen Crossmatch 04/02/19 04/02/19 04/03/19 16:34 17:14 04:18 WBC RBC Hgb Hct MCV MCHC RDW Plt Count Lymph % (Auto) [place] % (Auto) Lymph # [place] # Seg Neutrophils % Seg Neuts % (Manual) Lymphocytes % (Manual) Monocytes % (Manual) Nucleated RBC % Seg Neutrophils # Seg Neutrophils # Man Lymphocytes # (Manual) Monocytes # (Manual) PT INR D-Dimer Heparin Anti-Xa Level POC ABG pH ABG pH POC ABG pCO2 POC ABG pO2 146 H ABG pO2 ABG HCO3 ABG O2 Saturation ABG Base Excess ABG Hemoglobin Oxyhemoglobin Sodium Potassium Chloride Carbon Dioxide BUN Creatinine Glucose POC Glucose 108 H Lactic Acid Calcium Ionized Calcium Phosphorus Magnesium Iron TIBC Ferritin Total Bilirubin Direct Bilirubin AST ALT Alkaline Phosphatase Total Creatine Kinase CK-MB (CK-2) Troponin T C-Reactive Protein Serum Total Protein Total Protein Albumin Zaija-4-Byrdkwxrb Eoeev-5-Lmgejmfxc PEP Interpretation Triglycerides LDL Cholesterol Direct HDL Cholesterol Free T4 PTH Intact Urine WBC (Auto) Urine Creatinine Salicylates Acetaminophen Crossmatch See Detail 04/03/19 04/03/19 04/03/19 04:25 08:30 18:24 WBC RBC 2.40 L Hgb 7.3 L Hct 21.9 L MCV MCHC RDW Plt Count Lymph % (Auto) [place] % (Auto) 7.7 H Lymph # 0.9 L [place] # Seg Neutrophils % 74.6 H Seg Neuts % (Manual) Lymphocytes % (Manual) Monocytes % (Manual) Nucleated RBC % Seg Neutrophils # Seg Neutrophils # Man Lymphocytes # (Manual) Monocytes # (Manual) PT INR D-Dimer Heparin Anti-Xa Level POC ABG pH ABG pH POC ABG pCO2 POC ABG pO2 ABG pO2 ABG HCO3 ABG O2 Saturation ABG Base Excess ABG Hemoglobin Oxyhemoglobin Sodium 136 L Potassium Chloride 97.0 L Carbon Dioxide BUN 58 H Creatinine 7.3 H Glucose POC Glucose 106 H Lactic Acid Calcium 7.5 L Ionized Calcium Phosphorus 5.80 H D Magnesium Iron TIBC Ferritin Total Bilirubin Direct Bilirubin AST ALT Alkaline Phosphatase Total Creatine Kinase CK-MB (CK-2) Troponin T C-Reactive Protein Serum Total Protein Total Protein Albumin Myfwe-9-Njcqkjoko Jcvya-8-Yqihdedys PEP Interpretation Triglycerides LDL Cholesterol Direct HDL Cholesterol Free T4 PTH Intact Urine WBC (Auto) Urine Creatinine Salicylates Acetaminophen Crossmatch 04/03/19 04/04/19 04/04/19 23:43 04:47 04:47 WBC RBC 2.72 L Hgb 8.3 L Hct 24.7 L MCV MCHC RDW 15.6 H Plt Count Lymph % (Auto) [place] % (Auto) 10.1 H Lymph # 0.8 L [place] # Seg Neutrophils % 71.4 H Seg Neuts % (Manual) Lymphocytes % (Manual) Monocytes % (Manual) Nucleated RBC % Seg Neutrophils # Seg Neutrophils # Man Lymphocytes # (Manual) Monocytes # (Manual) PT INR D-Dimer Heparin Anti-Xa Level POC ABG pH ABG pH POC ABG pCO2 POC ABG pO2 ABG pO2 123.8 H ABG HCO3 ABG O2 Saturation ABG Base Excess -3.0 L ABG Hemoglobin 7.9 L Oxyhemoglobin Sodium 134 L Potassium Chloride 97.9 L Carbon Dioxide BUN 64 H Creatinine 8.1 H Glucose POC Glucose Lactic Acid Calcium 7.2 L Ionized Calcium Phosphorus Magnesium Iron TIBC Ferritin Total Bilirubin Direct Bilirubin AST ALT Alkaline Phosphatase Total Creatine Kinase CK-MB (CK-2) Troponin T C-Reactive Protein Serum Total Protein Total Protein Albumin Cfupn-5-Dlxfacxgr Nifoo-4-Tdppzbapv PEP Interpretation Triglycerides LDL Cholesterol Direct HDL Cholesterol Free T4 PTH Intact Urine WBC (Auto) Urine Creatinine Salicylates Acetaminophen Crossmatch 04/04/19 04/04/19 04/04/19 06:07 13:40 18:18 WBC RBC Hgb Hct MCV MCHC RDW Plt Count Lymph % (Auto) [place] % (Auto) Lymph # [place] # Seg Neutrophils % Seg Neuts % (Manual) Lymphocytes % (Manual) Monocytes % (Manual) Nucleated RBC % Seg Neutrophils # Seg Neutrophils # Man Lymphocytes # (Manual) Monocytes # (Manual) PT INR D-Dimer Heparin Anti-Xa Level POC ABG pH ABG pH POC ABG pCO2 POC ABG pO2 ABG pO2 95.9 H ABG HCO3 ABG O2 Saturation ABG Base Excess -3.0 L ABG Hemoglobin 8.5 L Oxyhemoglobin Sodium Potassium Chloride Carbon Dioxide BUN Creatinine Glucose POC Glucose 107 H 107 H Lactic Acid Calcium Ionized Calcium Phosphorus Magnesium Iron TIBC Ferritin Total Bilirubin Direct Bilirubin AST ALT Alkaline Phosphatase Total Creatine Kinase CK-MB (CK-2) Troponin T C-Reactive Protein Serum Total Protein Total Protein Albumin Nawbu-6-Hrxrwxvtw Klkfx-9-Wjbknfona PEP Interpretation Triglycerides LDL Cholesterol Direct HDL Cholesterol Free T4 PTH Intact Urine WBC (Auto) Urine Creatinine Salicylates Acetaminophen Crossmatch 04/04/19 04/05/19 04/05/19 21:22 04:09 04:09 WBC RBC 2.76 L Hgb 8.4 L Hct 25.4 L MCV MCHC RDW 15.8 H Plt Count 133 L Lymph % (Auto) [place] % (Auto) 9.6 H Lymph # 0.7 L [place] # Seg Neutrophils % 72.6 H Seg Neuts % (Manual) Lymphocytes % (Manual) Monocytes % (Manual) Nucleated RBC % Seg Neutrophils # Seg Neutrophils # Man Lymphocytes # (Manual) Monocytes # (Manual) PT INR D-Dimer Heparin Anti-Xa Level POC ABG pH ABG pH POC ABG pCO2 47.2 H POC ABG pO2 137 H ABG pO2 ABG HCO3 ABG O2 Saturation ABG Base Excess ABG Hemoglobin Oxyhemoglobin Sodium 136 L Potassium Chloride Carbon Dioxide BUN 46 H Creatinine 6.7 H Glucose POC Glucose Lactic Acid Calcium 7.7 L Ionized Calcium Phosphorus Magnesium Iron TIBC Ferritin Total Bilirubin Direct Bilirubin AST ALT Alkaline Phosphatase Total Creatine Kinase CK-MB (CK-2) Troponin T C-Reactive Protein Serum Total Protein Total Protein Albumin Hqdwy-5-Wfrxecvgm Emrxs-9-Jobfslkrm PEP Interpretation Triglycerides LDL Cholesterol Direct HDL Cholesterol Free T4 PTH Intact Urine WBC (Auto) Urine Creatinine Salicylates Acetaminophen Crossmatch 04/05/19 04/05/19 04/05/19 05:28 06:14 16:50 WBC RBC Hgb Hct MCV MCHC RDW Plt Count Lymph % (Auto) [place] % (Auto) Lymph # [place] # Seg Neutrophils % Seg Neuts % (Manual) Lymphocytes % (Manual) Monocytes % (Manual) Nucleated RBC % Seg Neutrophils # Seg Neutrophils # Man Lymphocytes # (Manual) Monocytes # (Manual) PT INR D-Dimer Heparin Anti-Xa Level POC ABG pH ABG pH POC ABG pCO2 POC ABG pO2 67 L ABG pO2 ABG HCO3 ABG O2 Saturation ABG Base Excess ABG Hemoglobin Oxyhemoglobin Sodium Potassium Chloride Carbon Dioxide BUN Creatinine Glucose POC Glucose 108 H Lactic Acid Calcium Ionized Calcium Phosphorus Magnesium Iron TIBC Ferritin Total Bilirubin Direct Bilirubin AST ALT Alkaline Phosphatase Total Creatine Kinase CK-MB (CK-2) Troponin T C-Reactive Protein Serum Total Protein Total Protein Albumin Tjjtl-2-Lxhsesyfp Snlyy-2-Mqrftjpic PEP Interpretation Triglycerides LDL Cholesterol Direct HDL Cholesterol Free T4 PTH Intact Urine WBC (Auto) 40.0 H Urine Creatinine Salicylates Acetaminophen Crossmatch 04/05/19 04/06/19 04/06/19 17:22 00:13 04:44 WBC RBC 2.48 L Hgb 7.5 L Hct 22.9 L MCV MCHC RDW 16.0 H Plt Count 107 L Lymph % (Auto) [place] % (Auto) 10.7 H Lymph # 1.0 L [place] # Seg Neutrophils % Seg Neuts % (Manual) Lymphocytes % (Manual) Monocytes % (Manual) Nucleated RBC % Seg Neutrophils # Seg Neutrophils # Man Lymphocytes # (Manual) Monocytes # (Manual) PT INR D-Dimer Heparin Anti-Xa Level POC ABG pH ABG pH POC ABG pCO2 POC ABG pO2 ABG pO2 ABG HCO3 ABG O2 Saturation ABG Base Excess ABG Hemoglobin Oxyhemoglobin Sodium Potassium Chloride Carbon Dioxide BUN Creatinine Glucose POC Glucose 118 H 138 H Lactic Acid Calcium Ionized Calcium Phosphorus Magnesium Iron TIBC Ferritin Total Bilirubin Direct Bilirubin AST ALT Alkaline Phosphatase Total Creatine Kinase CK-MB (CK-2) Troponin T C-Reactive Protein Serum Total Protein Total Protein Albumin Ujlmz-1-Fqltazocs Nkfbo-9-Ibcbeoqzj PEP Interpretation Triglycerides LDL Cholesterol Direct HDL Cholesterol Free T4 PTH Intact Urine WBC (Auto) Urine Creatinine Salicylates Acetaminophen Crossmatch 04/06/19 04/06/19 04/06/19 04:44 05:20 05:23 WBC RBC Hgb Hct MCV MCHC RDW Plt Count Lymph % (Auto) [place] % (Auto) Lymph # [place] # Seg Neutrophils % Seg Neuts % (Manual) Lymphocytes % (Manual) Monocytes % (Manual) Nucleated RBC % Seg Neutrophils # Seg Neutrophils # Man Lymphocytes # (Manual) Monocytes # (Manual) PT INR D-Dimer Heparin Anti-Xa Level POC ABG pH ABG pH POC ABG pCO2 POC ABG pO2 ABG pO2 104.0 H ABG HCO3 ABG O2 Saturation ABG Base Excess -2.1 L ABG Hemoglobin 7.3 L Oxyhemoglobin Sodium Potassium Chloride Carbon Dioxide BUN 64 H Creatinine 8.2 H Glucose 103 H POC Glucose 118 H Lactic Acid Calcium 7.3 L Ionized Calcium Phosphorus Magnesium Iron TIBC Ferritin Total Bilirubin Direct Bilirubin AST ALT Alkaline Phosphatase Total Creatine Kinase CK-MB (CK-2) Troponin T C-Reactive Protein Serum Total Protein Total Protein Albumin Vykqu-7-Ikpbeslmm Anvsf-9-Knnmlejee PEP Interpretation Triglycerides LDL Cholesterol Direct HDL Cholesterol Free T4 PTH Intact Urine WBC (Auto) Urine Creatinine Salicylates Acetaminophen Crossmatch 04/06/19 04/07/19 04/07/19 12:02 05:40 05:40 WBC RBC 2.59 L Hgb 7.9 L Hct 23.8 L MCV MCHC RDW 15.8 H Plt Count 89 L Lymph % (Auto) [place] % (Auto) 10.3 H Lymph # 1.1 L [place] # Seg Neutrophils % Seg Neuts % (Manual) Lymphocytes % (Manual) Monocytes % (Manual) Nucleated RBC % Seg Neutrophils # Seg Neutrophils # Man Lymphocytes # (Manual) Monocytes # (Manual) PT INR D-Dimer Heparin Anti-Xa Level POC ABG pH ABG pH POC ABG pCO2 POC ABG pO2 ABG pO2 ABG HCO3 ABG O2 Saturation ABG Base Excess ABG Hemoglobin Oxyhemoglobin Sodium 136 L Potassium 3.5 L Chloride Carbon Dioxide BUN 46 H Creatinine 6.2 H Glucose POC Glucose 108 H Lactic Acid Calcium 7.9 L Ionized Calcium Phosphorus Magnesium Iron TIBC Ferritin Total Bilirubin Direct Bilirubin AST ALT Alkaline Phosphatase Total Creatine Kinase CK-MB (CK-2) Troponin T C-Reactive Protein Serum Total Protein Total Protein Albumin Iamgv-4-Kqufonrec Lgnyf-1-Hfhxnvjbs PEP Interpretation Triglycerides LDL Cholesterol Direct HDL Cholesterol Free T4 PTH Intact Urine WBC (Auto) Urine Creatinine Salicylates Acetaminophen Crossmatch 04/07/19 04/09/19 04/09/19 12:57 04:28 04:28 WBC RBC 2.85 L Hgb 8.7 L Hct 26.2 L MCV MCHC RDW 15.6 H Plt Count Lymph % (Auto) [place] % (Auto) 10.4 H Lymph # 1.0 L [place] # Seg Neutrophils % 73.3 H Seg Neuts % (Manual) Lymphocytes % (Manual) Monocytes % (Manual) Nucleated RBC % Seg Neutrophils # Seg Neutrophils # Man Lymphocytes # (Manual) Monocytes # (Manual) PT INR D-Dimer Heparin Anti-Xa Level POC ABG pH ABG pH POC ABG pCO2 POC ABG pO2 107 H ABG pO2 ABG HCO3 ABG O2 Saturation ABG Base Excess ABG Hemoglobin Oxyhemoglobin Sodium Potassium 3.5 L Chloride 97.8 L Carbon Dioxide BUN 62 H Creatinine 8.1 H Glucose POC Glucose Lactic Acid Calcium 8.2 L Ionized Calcium Phosphorus 5.10 H Magnesium Iron TIBC Ferritin Total Bilirubin Direct Bilirubin AST ALT Alkaline Phosphatase Total Creatine Kinase CK-MB (CK-2) Troponin T C-Reactive Protein Serum Total Protein Total Protein Albumin Meers-1-Xcumpssfj Nnfsn-6-Ktsflbfyb PEP Interpretation Triglycerides LDL Cholesterol Direct HDL Cholesterol Free T4 PTH Intact Urine WBC (Auto) Urine Creatinine Salicylates Acetaminophen Crossmatch 04/10/19 04/11/19 04/11/19 18:15 00:25 04:16 WBC 11.5 H RBC 2.91 L Hgb 8.9 L Hct 27.6 L MCV 95 H MCHC RDW 17.5 H Plt Count Lymph % (Auto) [place] % (Auto) Lymph # [place] # Seg Neutrophils % Seg Neuts % (Manual) 71.0 H Lymphocytes % (Manual) Monocytes % (Manual) 8.0 H Nucleated RBC % Seg Neutrophils # Seg Neutrophils # Man 8.2 H Lymphocytes # (Manual) Monocytes # (Manual) 0.9 H PT INR D-Dimer Heparin Anti-Xa Level POC ABG pH ABG pH POC ABG pCO2 POC ABG pO2 ABG pO2 ABG HCO3 ABG O2 Saturation ABG Base Excess ABG Hemoglobin Oxyhemoglobin Sodium Potassium Chloride Carbon Dioxide BUN Creatinine Glucose POC Glucose 109 H 114 H Lactic Acid Calcium Ionized Calcium Phosphorus Magnesium Iron TIBC Ferritin Total Bilirubin Direct Bilirubin AST ALT Alkaline Phosphatase Total Creatine Kinase CK-MB (CK-2) Troponin T C-Reactive Protein Serum Total Protein Total Protein Albumin Psotl-1-Zwnfgnynp Jdzsm-4-Egrbcnrzz PEP Interpretation Triglycerides LDL Cholesterol Direct HDL Cholesterol Free T4 PTH Intact Urine WBC (Auto) Urine Creatinine Salicylates Acetaminophen Crossmatch 04/11/19 04/11/19 04/11/19 06:47 09:21 12:15 WBC RBC Hgb Hct MCV MCHC RDW Plt Count Lymph % (Auto) [place] % (Auto) Lymph # [place] # Seg Neutrophils % Seg Neuts % (Manual) Lymphocytes % (Manual) Monocytes % (Manual) Nucleated RBC % Seg Neutrophils # Seg Neutrophils # Man Lymphocytes # (Manual) Monocytes # (Manual) PT INR D-Dimer Heparin Anti-Xa Level POC ABG pH ABG pH POC ABG pCO2 POC ABG pO2 ABG pO2 ABG HCO3 ABG O2 Saturation ABG Base Excess ABG Hemoglobin Oxyhemoglobin Sodium Potassium 3.5 L Chloride Carbon Dioxide BUN 45 H Creatinine 6.0 H Glucose 113 H POC Glucose 106 H 109 H Lactic Acid Calcium Ionized Calcium Phosphorus Magnesium Iron TIBC Ferritin Total Bilirubin Direct Bilirubin AST ALT Alkaline Phosphatase Total Creatine Kinase CK-MB (CK-2) Troponin T C-Reactive Protein Serum Total Protein Total Protein Albumin Uxsqj-2-Lairunopk Obwqo-8-Wcioqqvic PEP Interpretation Triglycerides LDL Cholesterol Direct HDL Cholesterol Free T4 PTH Intact Urine WBC (Auto) Urine Creatinine Salicylates Acetaminophen Crossmatch 04/11/19 04/12/19 04/12/19 18:42 12:13 23:52 WBC RBC Hgb Hct MCV MCHC RDW Plt Count Lymph % (Auto) [place] % (Auto) Lymph # [place] # Seg Neutrophils % Seg Neuts % (Manual) Lymphocytes % (Manual) Monocytes % (Manual) Nucleated RBC % Seg Neutrophils # Seg Neutrophils # Man Lymphocytes # (Manual) Monocytes # (Manual) PT INR D-Dimer Heparin Anti-Xa Level POC ABG pH ABG pH POC ABG pCO2 POC ABG pO2 ABG pO2 ABG HCO3 ABG O2 Saturation ABG Base Excess ABG Hemoglobin Oxyhemoglobin Sodium Potassium Chloride Carbon Dioxide BUN Creatinine Glucose POC Glucose 107 H 115 H 124 H Lactic Acid Calcium Ionized Calcium Phosphorus Magnesium Iron TIBC Ferritin Total Bilirubin Direct Bilirubin AST ALT Alkaline Phosphatase Total Creatine Kinase CK-MB (CK-2) Troponin T C-Reactive Protein Serum Total Protein Total Protein Albumin Skpsp-2-Kdsfdkzvr Urqbp-5-Xieamwqjx PEP Interpretation Triglycerides LDL Cholesterol Direct HDL Cholesterol Free T4 PTH Intact Urine WBC (Auto) Urine Creatinine Salicylates Acetaminophen Crossmatch 04/13/19 04/13/19 04/13/19 05:00 05:00 05:47 WBC 11.7 H RBC 2.97 L Hgb 8.8 L Hct 27.3 L MCV MCHC RDW 16.1 H Plt Count Lymph % (Auto) 9.5 L [place] % (Auto) 9.9 H Lymph # 1.1 L [place] # 1.2 H Seg Neutrophils % 78.6 H Seg Neuts % (Manual) Lymphocytes % (Manual) Monocytes % (Manual) Nucleated RBC % Seg Neutrophils # 9.2 H Seg Neutrophils # Man Lymphocytes # (Manual) Monocytes # (Manual) PT INR D-Dimer Heparin Anti-Xa Level POC ABG pH ABG pH POC ABG pCO2 POC ABG pO2 ABG pO2 ABG HCO3 ABG O2 Saturation ABG Base Excess ABG Hemoglobin Oxyhemoglobin Sodium Potassium 3.5 L Chloride Carbon Dioxide BUN 42 H Creatinine 4.6 H Glucose 106 H POC Glucose 107 H Lactic Acid Calcium 10.6 H D Ionized Calcium Phosphorus 5.90 H Magnesium Iron TIBC Ferritin Total Bilirubin Direct Bilirubin AST ALT Alkaline Phosphatase Total Creatine Kinase CK-MB (CK-2) Troponin T C-Reactive Protein Serum Total Protein Total Protein 5.8 L Albumin 2.5 L Edoiu-4-Ubrvhyrld Pvjhw-2-Ndwuenafz PEP Interpretation Triglycerides LDL Cholesterol Direct HDL Cholesterol Free T4 PTH Intact Urine WBC (Auto) Urine Creatinine Salicylates Acetaminophen Crossmatch 04/13/19 04/14/19 04/14/19 17:32 00:00 03:55 WBC RBC Hgb Hct MCV MCHC RDW Plt Count Lymph % (Auto) [place] % (Auto) Lymph # [place] # Seg Neutrophils % Seg Neuts % (Manual) Lymphocytes % (Manual) Monocytes % (Manual) Nucleated RBC % Seg Neutrophils # Seg Neutrophils # Man Lymphocytes # (Manual) Monocytes # (Manual) PT INR D-Dimer Heparin Anti-Xa Level POC ABG pH ABG pH POC ABG pCO2 POC ABG pO2 ABG pO2 ABG HCO3 ABG O2 Saturation ABG Base Excess ABG Hemoglobin Oxyhemoglobin Sodium Potassium 3.0 L Chloride Carbon Dioxide BUN 30 H Creatinine 3.1 H Glucose POC Glucose 112 H 120 H Lactic Acid Calcium 10.8 H Ionized Calcium Phosphorus Magnesium Iron TIBC Ferritin Total Bilirubin Direct Bilirubin AST ALT Alkaline Phosphatase Total Creatine Kinase CK-MB (CK-2) Troponin T C-Reactive Protein Serum Total Protein Total Protein Albumin Gutry-7-Xyjwwxoku Xogjl-7-Vrfpnyssd PEP Interpretation Triglycerides LDL Cholesterol Direct HDL Cholesterol Free T4 PTH Intact Urine WBC (Auto) Urine Creatinine Salicylates Acetaminophen Crossmatch 04/14/19 04/14/19 04/15/19 11:56 23:28 05:11 WBC 13.0 H RBC 2.93 L Hgb 8.6 L Hct 26.5 L MCV MCHC RDW 16.5 H Plt Count Lymph % (Auto) 12.2 L [place] % (Auto) 9.1 H Lymph # [place] # 1.2 H Seg Neutrophils % 77.6 H Seg Neuts % (Manual) Lymphocytes % (Manual) Monocytes % (Manual) Nucleated RBC % Seg Neutrophils # 10.1 H Seg Neutrophils # Man Lymphocytes # (Manual) Monocytes # (Manual) PT INR D-Dimer Heparin Anti-Xa Level POC ABG pH ABG pH POC ABG pCO2 POC ABG pO2 ABG pO2 ABG HCO3 ABG O2 Saturation ABG Base Excess ABG Hemoglobin Oxyhemoglobin Sodium Potassium Chloride Carbon Dioxide BUN Creatinine Glucose POC Glucose 109 H 112 H Lactic Acid Calcium Ionized Calcium Phosphorus Magnesium Iron TIBC Ferritin Total Bilirubin Direct Bilirubin AST ALT Alkaline Phosphatase Total Creatine Kinase CK-MB (CK-2) Troponin T C-Reactive Protein Serum Total Protein Total Protein Albumin Lkpvy-4-Vgmmpcpwl Wtuho-4-Emqhcgalf PEP Interpretation Triglycerides LDL Cholesterol Direct HDL Cholesterol Free T4 PTH Intact Urine WBC (Auto) Urine Creatinine Salicylates Acetaminophen Crossmatch 04/15/19 04/15/19 04/15/19 05:11 05:31 18:03 WBC RBC Hgb Hct MCV MCHC RDW Plt Count Lymph % (Auto) [place] % (Auto) Lymph # [place] # Seg Neutrophils % Seg Neuts % (Manual) Lymphocytes % (Manual) Monocytes % (Manual) Nucleated RBC % Seg Neutrophils # Seg Neutrophils # Man Lymphocytes # (Manual) Monocytes # (Manual) PT INR D-Dimer Heparin Anti-Xa Level POC ABG pH ABG pH POC ABG pCO2 POC ABG pO2 ABG pO2 ABG HCO3 ABG O2 Saturation ABG Base Excess ABG Hemoglobin Oxyhemoglobin Sodium Potassium 3.2 L Chloride Carbon Dioxide BUN 44 H Creatinine 3.6 H Glucose 106 H POC Glucose 110 H 121 H Lactic Acid Calcium 12.0 H Ionized Calcium Phosphorus 5.00 H Magnesium Iron TIBC Ferritin Total Bilirubin Direct Bilirubin AST ALT Alkaline Phosphatase Total Creatine Kinase CK-MB (CK-2) Troponin T C-Reactive Protein Serum Total Protein Total Protein Albumin Fsrqn-5-Erdkohaqc Wyqmz-8-Ounxiglme PEP Interpretation Triglycerides LDL Cholesterol Direct HDL Cholesterol Free T4 PTH Intact Urine WBC (Auto) Urine Creatinine Salicylates Acetaminophen Crossmatch 04/16/19 04/16/19 04/17/19 05:07 05:07 04:15 WBC 12.6 H RBC 3.12 L Hgb 9.0 L Hct 28.2 L MCV MCHC RDW 16.6 H Plt Count Lymph % (Auto) 10.3 L [place] % (Auto) 9.8 H Lymph # [place] # 1.2 H Seg Neutrophils % 78.2 H Seg Neuts % (Manual) Lymphocytes % (Manual) Monocytes % (Manual) Nucleated RBC % Seg Neutrophils # 9.9 H Seg Neutrophils # Man Lymphocytes # (Manual) Monocytes # (Manual) PT INR D-Dimer Heparin Anti-Xa Level POC ABG pH ABG pH POC ABG pCO2 POC ABG pO2 ABG pO2 ABG HCO3 ABG O2 Saturation ABG Base Excess ABG Hemoglobin Oxyhemoglobin Sodium 147 H 150 H Potassium 3.5 L 3.1 L Chloride Carbon Dioxide 32 H BUN 54 H 65 H Creatinine 3.8 H 4.0 H Glucose 102 H 107 H POC Glucose Lactic Acid Calcium 11.7 H 12.0 H Ionized Calcium Phosphorus 5.40 H Magnesium Iron TIBC Ferritin Total Bilirubin Direct Bilirubin AST ALT Alkaline Phosphatase Total Creatine Kinase CK-MB (CK-2) Troponin T C-Reactive Protein 7.10 H Serum Total Protein Total Protein Albumin Oxyvr-9-Dorfoumpp Posum-4-Tuqlhgdxz PEP Interpretation Triglycerides LDL Cholesterol Direct HDL Cholesterol Free T4 PTH Intact Urine WBC (Auto) Urine Creatinine Salicylates Acetaminophen Crossmatch 04/17/19 04/17/19 04/17/19 04:15 06:05 12:49 WBC 15.8 H RBC 3.32 L Hgb 9.5 L Hct 29.9 L MCV MCHC RDW 16.9 H Plt Count Lymph % (Auto) 12.6 L [place] % (Auto) 11.1 H Lymph # [place] # 1.7 H Seg Neutrophils % 74.7 H Seg Neuts % (Manual) Lymphocytes % (Manual) Monocytes % (Manual) Nucleated RBC % Seg Neutrophils # 11.8 H Seg Neutrophils # Man Lymphocytes # (Manual) Monocytes # (Manual) PT INR D-Dimer Heparin Anti-Xa Level POC ABG pH ABG pH POC ABG pCO2 POC ABG pO2 ABG pO2 ABG HCO3 ABG O2 Saturation ABG Base Excess ABG Hemoglobin Oxyhemoglobin Sodium Potassium Chloride Carbon Dioxide BUN Creatinine Glucose POC Glucose 111 H 108 H Lactic Acid Calcium Ionized Calcium Phosphorus Magnesium Iron TIBC Ferritin Total Bilirubin Direct Bilirubin AST ALT Alkaline Phosphatase Total Creatine Kinase CK-MB (CK-2) Troponin T C-Reactive Protein Serum Total Protein Total Protein Albumin Agwlt-0-Loefajymh Zwgpu-5-Qsamloocc PEP Interpretation Triglycerides LDL Cholesterol Direct HDL Cholesterol Free T4 PTH Intact Urine WBC (Auto) Urine Creatinine Salicylates Acetaminophen Crossmatch 04/18/19 04/18/19 04/18/19 00:23 04:41 04:41 WBC 19.4 H RBC 3.03 L Hgb 8.6 L Hct 27.5 L MCV MCHC 31 L RDW 16.9 H Plt Count Lymph % (Auto) [place] % (Auto) Lymph # [place] # Seg Neutrophils % Seg Neuts % (Manual) Lymphocytes % (Manual) Monocytes % (Manual) Nucleated RBC % Seg Neutrophils # Seg Neutrophils # Man Lymphocytes # (Manual) Monocytes # (Manual) PT INR D-Dimer Heparin Anti-Xa Level POC ABG pH ABG pH POC ABG pCO2 POC ABG pO2 ABG pO2 ABG HCO3 ABG O2 Saturation ABG Base Excess ABG Hemoglobin Oxyhemoglobin Sodium 152 H Potassium 3.0 L Chloride Carbon Dioxide BUN 80 H Creatinine 4.3 H Glucose 103 H POC Glucose 115 H Lactic Acid Calcium 11.4 H Ionized Calcium Phosphorus Magnesium Iron TIBC Ferritin Total Bilirubin Direct Bilirubin AST ALT Alkaline Phosphatase Total Creatine Kinase CK-MB (CK-2) Troponin T C-Reactive Protein Serum Total Protein Total Protein Albumin Kuhvg-7-Tuddqsgae Ywgkd-0-Epqhspdjd PEP Interpretation Triglycerides LDL Cholesterol Direct HDL Cholesterol Free T4 PTH Intact Urine WBC (Auto) Urine Creatinine Salicylates Acetaminophen Crossmatch 04/18/19 04/18/19 04/18/19 06:17 12:16 18:10 WBC RBC Hgb Hct MCV MCHC RDW Plt Count Lymph % (Auto) [place] % (Auto) Lymph # [place] # Seg Neutrophils % Seg Neuts % (Manual) Lymphocytes % (Manual) Monocytes % (Manual) Nucleated RBC % Seg Neutrophils # Seg Neutrophils # Man Lymphocytes # (Manual) Monocytes # (Manual) PT INR D-Dimer Heparin Anti-Xa Level POC ABG pH ABG pH POC ABG pCO2 POC ABG pO2 ABG pO2 ABG HCO3 ABG O2 Saturation ABG Base Excess ABG Hemoglobin Oxyhemoglobin Sodium Potassium Chloride Carbon Dioxide BUN Creatinine Glucose POC Glucose 124 H 119 H 111 H Lactic Acid Calcium Ionized Calcium Phosphorus Magnesium Iron TIBC Ferritin Total Bilirubin Direct Bilirubin AST ALT Alkaline Phosphatase Total Creatine Kinase CK-MB (CK-2) Troponin T C-Reactive Protein Serum Total Protein Total Protein Albumin Lzbxh-5-Sszqbsxfo Cvlbd-8-Wbogpweho PEP Interpretation Triglycerides LDL Cholesterol Direct HDL Cholesterol Free T4 PTH Intact Urine WBC (Auto) Urine Creatinine Salicylates Acetaminophen Crossmatch 04/19/19 04/19/19 04/20/19 03:49 05:27 09:09 WBC RBC Hgb Hct MCV MCHC RDW Plt Count Lymph % (Auto) [place] % (Auto) Lymph # [place] # Seg Neutrophils % Seg Neuts % (Manual) Lymphocytes % (Manual) Monocytes % (Manual) Nucleated RBC % Seg Neutrophils # Seg Neutrophils # Man Lymphocytes # (Manual) Monocytes # (Manual) PT INR D-Dimer Heparin Anti-Xa Level POC ABG pH ABG pH POC ABG pCO2 POC ABG pO2 ABG pO2 ABG HCO3 ABG O2 Saturation ABG Base Excess ABG Hemoglobin Oxyhemoglobin Sodium 147 H 150 H Potassium 3.3 L Chloride 108.9 H Carbon Dioxide BUN 45 H 70 H Creatinine 2.9 H 4.1 H Glucose 105 H POC Glucose 124 H Lactic Acid Calcium 10.6 H 11.6 H Ionized Calcium Phosphorus Magnesium Iron TIBC Ferritin Total Bilirubin Direct Bilirubin AST ALT Alkaline Phosphatase Total Creatine Kinase CK-MB (CK-2) Troponin T C-Reactive Protein Serum Total Protein Total Protein Albumin Khxiy-8-Toybbmvjd Yerdb-4-Qagpyfbwn PEP Interpretation Triglycerides LDL Cholesterol Direct HDL Cholesterol Free T4 PTH Intact Urine WBC (Auto) Urine Creatinine Salicylates Acetaminophen Crossmatch 04/20/19 04/20/19 04/21/19 12:29 18:45 01:34 WBC RBC Hgb Hct MCV MCHC RDW Plt Count Lymph % (Auto) [place] % (Auto) Lymph # [place] # Seg Neutrophils % Seg Neuts % (Manual) Lymphocytes % (Manual) Monocytes % (Manual) Nucleated RBC % Seg Neutrophils # Seg Neutrophils # Man Lymphocytes # (Manual) Monocytes # (Manual) PT INR D-Dimer Heparin Anti-Xa Level POC ABG pH ABG pH POC ABG pCO2 POC ABG pO2 ABG pO2 ABG HCO3 ABG O2 Saturation ABG Base Excess ABG Hemoglobin Oxyhemoglobin Sodium Potassium Chloride Carbon Dioxide BUN 40 H Creatinine 2.6 H Glucose 104 H POC Glucose 131 H 134 H Lactic Acid Calcium 11.0 H Ionized Calcium Phosphorus Magnesium Iron TIBC Ferritin Total Bilirubin Direct Bilirubin AST ALT Alkaline Phosphatase Total Creatine Kinase CK-MB (CK-2) Troponin T C-Reactive Protein Serum Total Protein Total Protein Albumin Sspax-9-Dbgjomqqr Rljbr-9-Gingnsiym PEP Interpretation Triglycerides LDL Cholesterol Direct HDL Cholesterol Free T4 PTH Intact Urine WBC (Auto) Urine Creatinine Salicylates Acetaminophen Crossmatch 04/21/19 04/21/19 04/22/19 04:22 04:22 04:24 WBC 14.2 H 14.3 H RBC 3.02 L 3.57 L Hgb 8.7 L 10.1 L Hct 27.2 L 32.1 L MCV MCHC RDW 16.7 H 17.2 H Plt Count Lymph % (Auto) [place] % (Auto) Lymph # [place] # Seg Neutrophils % Seg Neuts % (Manual) Lymphocytes % (Manual) Monocytes % (Manual) Nucleated RBC % Seg Neutrophils # Seg Neutrophils # Man Lymphocytes # (Manual) Monocytes # (Manual) PT INR D-Dimer Heparin Anti-Xa Level POC ABG pH ABG pH POC ABG pCO2 POC ABG pO2 ABG pO2 ABG HCO3 ABG O2 Saturation ABG Base Excess ABG Hemoglobin Oxyhemoglobin Sodium Potassium Chloride Carbon Dioxide BUN Creatinine Glucose POC Glucose Lactic Acid Calcium Ionized Calcium Phosphorus Magnesium Iron TIBC Ferritin Total Bilirubin Direct Bilirubin AST ALT Alkaline Phosphatase Total Creatine Kinase CK-MB (CK-2) Troponin T C-Reactive Protein Serum Total Protein 5.7 L Total Protein Albumin 2.3 L Dhctn-2-Rdhhbygyp 0.5 H Htpjc-8-Ecfjrwbms 1.0 H PEP Interpretation see below H Triglycerides LDL Cholesterol Direct HDL Cholesterol Free T4 PTH Intact Urine WBC (Auto) Urine Creatinine Salicylates Acetaminophen Crossmatch 04/22/19 04/22/19 04/22/19 04:24 06:37 11:57 WBC RBC Hgb Hct MCV MCHC RDW Plt Count Lymph % (Auto) [place] % (Auto) Lymph # [place] # Seg Neutrophils % Seg Neuts % (Manual) Lymphocytes % (Manual) Monocytes % (Manual) Nucleated RBC % Seg Neutrophils # Seg Neutrophils # Man Lymphocytes # (Manual) Monocytes # (Manual) PT INR D-Dimer Heparin Anti-Xa Level POC ABG pH ABG pH POC ABG pCO2 POC ABG pO2 ABG pO2 ABG HCO3 ABG O2 Saturation ABG Base Excess ABG Hemoglobin Oxyhemoglobin Sodium Potassium Chloride Carbon Dioxide BUN 54 H Creatinine 3.5 H Glucose POC Glucose 113 H 110 H Lactic Acid Calcium 11.4 H Ionized Calcium Phosphorus Magnesium Iron TIBC Ferritin Total Bilirubin Direct Bilirubin AST ALT Alkaline Phosphatase Total Creatine Kinase CK-MB (CK-2) Troponin T C-Reactive Protein Serum Total Protein Total Protein Albumin Xpgdv-8-Fuvzuvcjs Eaewy-6-Sbqxwijhz PEP Interpretation Triglycerides LDL Cholesterol Direct HDL Cholesterol Free T4 PTH Intact Urine WBC (Auto) Urine Creatinine Salicylates Acetaminophen Crossmatch 04/22/19 04/23/19 04/23/19 18:33 04:06 04:06 WBC 16.1 H RBC 3.36 L Hgb 9.8 L Hct 30.8 L MCV MCHC RDW 17.7 H Plt Count Lymph % (Auto) 9.9 L [place] % (Auto) Lymph # [place] # Seg Neutrophils % 84.2 H Seg Neuts % (Manual) Lymphocytes % (Manual) Monocytes % (Manual) Nucleated RBC % Seg Neutrophils # 13.6 H Seg Neutrophils # Man Lymphocytes # (Manual) Monocytes # (Manual) PT INR D-Dimer Heparin Anti-Xa Level POC ABG pH ABG pH POC ABG pCO2 POC ABG pO2 ABG pO2 ABG HCO3 ABG O2 Saturation ABG Base Excess ABG Hemoglobin Oxyhemoglobin Sodium Potassium Chloride Carbon Dioxide BUN 59 H Creatinine 3.8 H Glucose POC Glucose 120 H Lactic Acid Calcium 12.3 H* Ionized Calcium Phosphorus 5.70 H Magnesium Iron TIBC Ferritin Total Bilirubin Direct Bilirubin AST ALT Alkaline Phosphatase Total Creatine Kinase CK-MB (CK-2) Troponin T C-Reactive Protein Serum Total Protein Total Protein Albumin 3.2 L Kirml-9-Bcjnodoxg Aylry-3-Wxwetedpu PEP Interpretation Triglycerides LDL Cholesterol Direct HDL Cholesterol Free T4 PTH Intact Urine WBC (Auto) Urine Creatinine Salicylates Acetaminophen Crossmatch 04/23/19 04/24/19 04/24/19 18:06 04:12 04:12 WBC 18.0 H RBC 3.46 L Hgb 9.8 L Hct 31.2 L MCV MCHC 31 L RDW 17.5 H Plt Count Lymph % (Auto) 11.1 L [place] % (Auto) Lymph # [place] # Seg Neutrophils % 81.9 H Seg Neuts % (Manual) Lymphocytes % (Manual) Monocytes % (Manual) Nucleated RBC % Seg Neutrophils # 14.7 H Seg Neutrophils # Man Lymphocytes # (Manual) Monocytes # (Manual) PT INR D-Dimer Heparin Anti-Xa Level POC ABG pH ABG pH POC ABG pCO2 POC ABG pO2 ABG pO2 ABG HCO3 ABG O2 Saturation ABG Base Excess ABG Hemoglobin Oxyhemoglobin Sodium Potassium Chloride Carbon Dioxide BUN 56 H Creatinine 3.6 H Glucose POC Glucose 124 H Lactic Acid Calcium 12.6 H* Ionized Calcium Phosphorus Magnesium Iron TIBC Ferritin Total Bilirubin Direct Bilirubin AST ALT Alkaline Phosphatase Total Creatine Kinase CK-MB (CK-2) Troponin T C-Reactive Protein Serum Total Protein Total Protein Albumin 3.2 L Czkrf-9-Ehazxsokc Yuagp-1-Aihvplvdv PEP Interpretation Triglycerides LDL Cholesterol Direct HDL Cholesterol Free T4 PTH Intact Urine WBC (Auto) Urine Creatinine Salicylates Acetaminophen Crossmatch 04/24/19 04/24/19 04/25/19 06:21 11:47 05:58 WBC 18.0 H RBC 2.98 L Hgb 8.3 L Hct 26.5 L MCV MCHC 31 L RDW 17.9 H Plt Count Lymph % (Auto) 10.1 L [place] % (Auto) Lymph # [place] # 0.9 H Seg Neutrophils % 82.8 H Seg Neuts % (Manual) Lymphocytes % (Manual) Monocytes % (Manual) Nucleated RBC % Seg Neutrophils # 15.0 H Seg Neutrophils # Man Lymphocytes # (Manual) Monocytes # (Manual) PT INR D-Dimer Heparin Anti-Xa Level POC ABG pH ABG pH POC ABG pCO2 POC ABG pO2 ABG pO2 ABG HCO3 ABG O2 Saturation ABG Base Excess ABG Hemoglobin Oxyhemoglobin Sodium Potassium Chloride Carbon Dioxide BUN Creatinine Glucose POC Glucose 132 H 106 H Lactic Acid Calcium Ionized Calcium Phosphorus Magnesium Iron TIBC Ferritin Total Bilirubin Direct Bilirubin AST ALT Alkaline Phosphatase Total Creatine Kinase CK-MB (CK-2) Troponin T C-Reactive Protein Serum Total Protein Total Protein Albumin Cebru-3-Saujvpaew Kurji-6-Ckdthqnzu PEP Interpretation Triglycerides LDL Cholesterol Direct HDL Cholesterol Free T4 PTH Intact Urine WBC (Auto) Urine Creatinine Salicylates Acetaminophen Crossmatch 04/25/19 04/26/19 04/26/19 05:58 05:57 06:08 WBC RBC Hgb Hct MCV MCHC RDW Plt Count Lymph % (Auto) [place] % (Auto) Lymph # [place] # Seg Neutrophils % Seg Neuts % (Manual) Lymphocytes % (Manual) Monocytes % (Manual) Nucleated RBC % Seg Neutrophils # Seg Neutrophils # Man Lymphocytes # (Manual) Monocytes # (Manual) PT INR D-Dimer Heparin Anti-Xa Level POC ABG pH ABG pH POC ABG pCO2 POC ABG pO2 ABG pO2 ABG HCO3 ABG O2 Saturation ABG Base Excess ABG Hemoglobin Oxyhemoglobin Sodium Potassium 3.2 L Chloride Carbon Dioxide BUN 52 H 48 H Creatinine 3.2 H 2.9 H Glucose 108 H 112 H POC Glucose 109 H Lactic Acid Calcium 11.4 H 12.5 H* Ionized Calcium Phosphorus 5.90 H Magnesium Iron TIBC Ferritin Total Bilirubin Direct Bilirubin AST ALT Alkaline Phosphatase Total Creatine Kinase CK-MB (CK-2) Troponin T C-Reactive Protein Serum Total Protein Total Protein Albumin 3.0 L Mgpxx-2-Sqechljlb Toyek-4-Hudqgqhlq PEP Interpretation Triglycerides LDL Cholesterol Direct HDL Cholesterol Free T4 PTH Intact Urine WBC (Auto) Urine Creatinine Salicylates Acetaminophen Crossmatch 04/26/19 07:22 WBC RBC Hgb Hct MCV MCHC RDW Plt Count Lymph % (Auto) [place] % (Auto) Lymph # [place] # Seg Neutrophils % Seg Neuts % (Manual) Lymphocytes % (Manual) Monocytes % (Manual) Nucleated RBC % Seg Neutrophils # Seg Neutrophils # Man Lymphocytes # (Manual) Monocytes # (Manual) PT INR D-Dimer Heparin Anti-Xa Level POC ABG pH ABG pH POC ABG pCO2 POC ABG pO2 ABG pO2 ABG HCO3 ABG O2 Saturation ABG Base Excess ABG Hemoglobin Oxyhemoglobin Sodium Potassium Chloride Carbon Dioxide BUN 46 H Creatinine 2.8 H Glucose POC Glucose Lactic Acid Calcium > 13.0 H* Ionized Calcium Phosphorus Magnesium Iron TIBC Ferritin Total Bilirubin Direct Bilirubin AST ALT Alkaline Phosphatase Total Creatine Kinase CK-MB (CK-2) Troponin T C-Reactive Protein Serum Total Protein Total Protein Albumin Sefnv-9-Bddecbnhw Cpgso-5-Okmbqxtgj PEP Interpretation Triglycerides LDL Cholesterol Direct HDL Cholesterol Free T4 PTH Intact Urine WBC (Auto) Urine Creatinine Salicylates Acetaminophen Crossmatch Allied health notes reviewed: nursing
--- NOTE | 2019-04-26 08:55 | Progress Note ---
Assessment and Plan 1. Acute kidney injury: Vasomotor RUBEN in the setting of shock / volume depletion / Rhabdo. Baseline renal function is unknown. CT abdomen was negative for obstructive nephropathy. Patient was started on hemodialysis on 03/18/19 due to worsening metabolic acidosis and hyperkalemia. Hemodialysis: 03/18, 03/19, 03/20, 03/22, 03/23, 03/24, 03/26, 03/28, 03/29, 03/31, 04/02, 04/04, 04/06, 04/09, 04/11, 04/13, 04/18, 04/20. 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 Renal function continue to improve. Monitor renal function. Renal prognosis is guarded. Avoid nephrotoxic agents. Meds dosage based on GFR. 2. FEN: Hypercalcemia, a dose of Pamidronate ordered. Metabolic acidosis, improved. Volume overload, improving. Monitor lytes. 3. Septic shock: Currently off pressors. Recurrent fever. Per ID recommendation the dialysis catheter was removed on 04/20. 4. Rhabdomyolysis: Improved. 5. A.fib with RVR: SR today. On Amiodarone and Metoprolol. Followed by Cards. 6. Respiratory failure: Extubated. 7. Severe anemia: S/p PRBC. Epogen as needed. 8. Elevated transaminases: Improved. 9. Encephalopathy: Improving. Examination: General appearance: well-developed, appears stated age, obese, not in distress HEENT: Atraumatic EYES: Pupils reacting to light Neck: supple Respiratory: faint rales noted Cardiology: regular, S1S2 heard, no murmur Gastrointestinal: obese, BS heard, not tender Integumentary: no rash noted Neurologic: alert, follows command, conversing, oriented Ext: L UE edema noted Hemodialysis access: None Subjective Date of service: 04/26/19 Principal diagnosis: Septic Shock; Ac. hypoxemic resp failure; Renzo. PNA; Rhabdomyolysis; RUBEN Interval history: Patient was seen and examined at the bedside. Doing ok. Objective - Vital Signs Vital signs: Vital Signs - 12hr 04/25/19 04/25/19 04/25/19 21:29 21:35 21:49 Temperature 98.0 F Pulse Rate 81 81 Pulse Rate [ From Monitor] Respiratory 18 Rate Blood Pressure 111/61 111/61 O2 Sat by Pulse Oximetry 04/25/19 04/26/19 22:00 05:33 Temperature 97.7 F Pulse Rate 79 Pulse Rate [ 78 From Monitor] Respiratory 20 Rate Blood Pressure 114/61 O2 Sat by Pulse 95 Oximetry - Lab 04/25/19 05:58 04/26/19 07:22 Most recent lab results ABG pH 7.388 pH Units (7.350-7.450) 04/06/19 05:20 ABG pCO2 38.5 mm Hg 04/06/19 05:20 ABG pO2 104.0 mm Hg (80.0-90.0) H 04/06/19 05:20 ABG HCO3 22.6 mmol/L (20.0-26.0) 04/06/19 05:20 ABG O2 Saturation 97.8 % (95.0-99.0) 04/06/19 05:20 Calcium > 13.0 mg/dL (8.4-10.2) H* 04/26/19 07:22 Phosphorus 5.90 mg/dL (2.5-4.5) H 04/26/19 05:57 Magnesium 1.90 mg/dL (1.7-2.3) 04/26/19 05:57 Urine Creatinine 106.6 mg/dL (0.1-20.0) H 03/17/19 16:05 Urine Sodium 95 mmol/L 03/17/19 16:05 Medications & Allergies - Medications Allergies/Adverse Reactions: Allergies No Known Allergies Allergy (Unverified 03/16/19 17:17) Home Medications: Home Medications Medication Instructions Recorded Confirmed Last Taken Type Unobtainable 03/18/19 04/20/19 Unknown History Active Medications: Generic Name Dose Route Start Last Admin Trade Name Freq PRN Reason Stop Dose Admin Acetaminophen 650 mg 04/02/19 23:26 04/21/19 20:29 Tylenol PO 650 mg Q4H PRN Administration Pain, Mild (1-3),temp>100.5 Albuterol 2.5 mg 03/29/19 13:08 Proventil IH Q4HRT PRN Shortness Of Breath Amiodarone HCl 200 mg 04/15/19 22:00 04/25/19 21:49 Cordarone PO 200 mg BID PAOLO Administration Lipase/Protease/Amylase 1 each 04/20/19 13:[address] 10,500 Unit FEEDTUBE PRN PRN For Clogged Feeding Tube Bacitracin 1 applic 04/17/19 08:00 Antibiotic Oint TP Q4H PRN upper lip sore/open Dextrose 50 gm 04/17/19 08:00 D50w (25gm) Vial IV Q1H PRN Hypoglycemia Epoetin Jet 20,000 unit 03/31/19 10:15 04/20/19 12:47 Procrit SUB-Q 20,000 unit NEYMAR PRN Administration hemodialysis Hydralazine HCl 20 mg 04/14/19 03:00 04/14/19 03:11 Apresoline IV 20 mg Q4H PRN Administration hypertemsion Hydrophilic Ointment 1 applic 03/16/19 15:50 04/19/19 18:24 Vaseline Lip Therapy TP 1 applic Q2HR PRN Administration Dry Lips Aztreonam 2 gm in 100 mls @ 100 mls/hr 04/17/19 18:00 04/25/19 10:11 Azactam/Ns 2 Gm/100 Ml IV 100 mls/hr Q24HR PAOLO Administration Protocol Linezolid 600 mg in 300 mls @ 300 mls/hr 04/17/19 17:00 04/26/19 05:07 Zyvox 600mg/300ml IV 300 mls/hr Q12H PAOLO Administration Protocol Sodium Chloride 100 mls @ 999 mls/hr 04/20/19 08:41 Nacl 0.9% IV NEYMAR PRN Hypotension Lansoprazole 30 mg 04/11/19 10:00 04/25/19 21:49 Prevacid Solutab FEEDTUBE 30 mg BID PAOLO Administration Metoprolol Tartrate 5 mg 04/16/19 22:24 04/22/19 00:20 Lopressor IV 5 mg Q6H PRN Administration For HR >120 Metoprolol Tartrate 25 mg 04/17/19 20:00 04/25/19 21:49 Lopressor PO 25 mg TID PAOLO Administration Multi-Ingred Cream/Lotion/Oil/Oint 1 applic 03/16/19 15:50 03/19/19 20:10 Artificial Tears Ophth Oint OU 1 applic Q4HR PRN Administration Dry Eye(s) Simple Syrup 15 ml 04/20/19 13:17 Simple Syrup FEEDTUBE PRN PRN Hypoglycemia Simple Syrup 30 ml 04/20/19 13:29 Simple Syrup FEEDTUBE PRN PRN Hypoglycemia Sodium Bicarbonate 325 mg 04/20/19 13:17 Sodium Bicarbonate FEEDTUBE PRN PRN For Clogged Feeding Tube Sodium Hypochlorite 1 applic 04/18/19 11:00 04/26/19 08:48 Dakin's Half Strength TP Not Given BID PAOLO
[2019-04-26] MEDS: LANSOPRAZOLE 30 MG SOLUTAB FEEDTUBE SCH ×2 (09:02→21:54)
[2019-04-26] MEDS: AZTREONAM/NS 2 GM/100 ML 2 GM/100 ML VIAL IV SCH (09:02)
[2019-04-26] MEDS: AMIODARONE 200 MG TAB PO SCH ×2 (09:02→21:54)
[2019-04-26] MEDS ORDERED: FUROSEMIDE 40 MG/4 ML INJ IV ONE ×2 (10:00→18:00)
[2019-04-26] MEDS ORDERED: SODIUM CHLORIDE 0.9% 500 ML 500 ML IV ONE ×3 (10:00→20:00)
[2019-04-26] MEDS ORDERED: PAMIDRONATE DISODIUM 60 MG in SODIUM CHLORIDE 0.9% 1000 ML 1,000 ML IV ONE (10:30)
--- NOTE | 2019-04-26 10:49 | Progress Note ---
Assessment and Plan Cont present cardiac management. No systemic AC regarding AFib in setting of anemia, thrombocytopenia, GI bleed. Can consider ischemic evaluation (stress test) once medically stabilized - likely next week. Will follow peripherally. The patient has been seen in conjunction with Dr. Rojas who agrees with the assessment and plan of care. - Patient Problems (1) Cardiopulmonary arrest Current Visit: Yes Status: Acute (2) Acute respiratory failure Current Visit: Yes Status: Acute Qualifiers: Respiratory failure complication: hypoxia Qualified Code(s): J96.01 - Acute respiratory failure with hypoxia (3) Paroxysmal atrial fibrillation with RVR Current Visit: Yes Status: Acute (4) SVT (supraventricular tachycardia) Current Visit: Yes Status: Acute (5) Torsades de pointes Current Visit: Yes Status: Acute (6) Ventricular tachycardia Current Visit: Yes Status: Acute (7) Encephalopathy Current Visit: Yes Status: Acute (8) Septic shock Current Visit: Yes Status: Acute (9) Aspiration pneumonia Current Visit: Yes Status: Acute Qualifiers: Aspiration pneumonia type: unspecified (10) Meningitis Current Visit: Yes Status: Suspected (11) Cellulitis Current Visit: Yes Status: Acute (12) Acute renal failure Current Visit: Yes Status: Acute Qualifiers: Acute renal failure type: with acute tubular necrosis Qualified Code(s): N17.0 - Acute kidney failure with tubular necrosis (13) GI bleed Current Visit: Yes Status: Acute (14) Anemia Current Visit: Yes Status: Acute (15) Thrombocytopenia Current Visit: Yes Status: Resolved (16) DVT (deep venous thrombosis) Current Visit: Yes Status: Acute Subjective Date of service: 04/26/19 Principal diagnosis: Septic Shock; Ac. hypoxemic resp failure; Renzo. PNA; Rhabdomyolysis; RUBEN Interval history: pt resting in bed, awake and alert, in SR. Objective Last Vital Signs Temp 97.7 F 04/26/19 05:33 Pulse 79 04/26/19 05:33 Resp 20 04/26/19 05:33 BP 114/61 04/26/19 05:33 Pulse Ox 95 04/26/19 05:33 - Physical Examination General: No Apparent Distress HEENT: Positive: EOMI, Normocephaly, Mucus Membranes Moist Neck: Positive: neck supple, trachea midline Cardiac: Positive: Reg Rate and Rhythm, S1/S2 Lungs: Positive: Decreased Breath Sounds Neuro: Positive: Grossly Intact, Other (awake, alert and oriented) Abdomen: Positive: Soft, Active Bowel Sounds. Negative: Tender /Rectal: Other (deferred) Skin: Positive: Clear. Negative: Rash Musculoskeletal: Normal Range of Motion Extremities: Present: normal. Absent: edema - Labs and Meds Comprehensive Metabolic Panel 04/21/19 04/26/19 04/26/19 Range/Units 04:22 05:57 07:22 Sodium 140 139 (137-145) mmol/L Potassium 3.6 3.7 (3.6-5.0) mmol/L Chloride 100.2 99.5 (98-107) mmol/L Carbon Dioxide 24 23 (22-30) mmol/L BUN 48 H 46 H (9-20) mg/dL Creatinine 2.9 H 2.8 H (0.8-1.5) mg/dL Glucose 112 H 87 (75-100) mg/dL Calcium 12.5 H* > 13.0 H* (8.4-10.2) mg/dL Albumin 2.3 L (3.8-4.8) g/dL - Imaging and Cardiology Echo: report reviewed ( EF 40-45%, impaired relaxation. ) - EKG Sinus rhythms and dysrhythmias: sinus rhythm - Allied health notes Allied health notes reviewed: nursing
--- NOTE | 2019-04-26 11:46 | Progress Note ---
Assessment and Plan Cultures: 03/16/2019 sputum: salivary contamination 03/16/2019 Blood culture: no growth 03/17/2019 Urine culture no growth 03/17/2019 throat culture: no growth 03/26/2019 Blood culture: no growth 03/27/2019 Blood culture negative. 04/04/2019 blood culture NGTD 04/05/2019 urine culture: no growth 04/11/2019 blood culture: no growth 04/15/2019 blood culture: no growth Assessment: 43y/o male with possible psych history admitted on 03/16/2019 with: 1) Septic shock: Resolved. Fever after right IJ exchanged overwire on 03/27, fever had improved. Brain MRI showed no acute intracranial abnormality, mild nonspecific chronic white matter changes, fluid throughout the sinuses and mastoid air cells. Venous US + right IJ DVT. Completed empiric Cefepime x 10 days on 04/06/2019. Initial septic shock - Possible Infectious etiology v/s possibility of Neuroleptic Malignant Syndrome given psych history, high fever of 105F and extremely elevated CPK of >100K. Unclear if he was on any psych med. From ID standpoint, we will continue broad coverage for acute bacterial meningitis, tick borne illness, aspiration pneumonia. Blood culture negative UA with mild pyuria. HIV rapid negative. Strep A rapid ag negative. No obvious infectious source identified yet. 2) High fevers with elevated WBC: ?drug fever v/s infected HD cath. Blood cultures have remained negative. CXR with no obvious pneumonia. Fevers have resolved but white count has elevated, now stable. No new symptoms to explain, will follow. 3) Probable aspiration pneumonia, fluid overload, acute resp failure: on oxygen. Previously completed abx. 4) Acute encephalopathy: improving, awake, alert, calm. 5) Acute renal failure: renally dosing all abx, now on iHD. 6) Elevated LFTs/shock liver: resolved. 7) Thrombocytopenia: platelet normalized. 8) Rhabdomyolysis: CK normalized. 9) Multiple superficial wounds: do not appear infected. Continue wound care. Recommendations: continue renally adjusted IV aztreonam and linezolid for now given worsening white count. Repeat CBC in AM - consider stopping Abx if improved. LANDY, complement levels within normal limits. Continue wound care Katie Palmer MD [facility] M: [phone] O: [phone] F: [phone] Subjective Date of service: 04/26/19 Principal diagnosis: Septic Shock; Ac. hypoxemic resp failure; Dannie. PNA; Rhabdomyolysis; RUBEN Interval history: Stable leukocytosis. Remains afebrile. Objective - Exam Narrative Exam: General appearance: alert, awake Eyes: pupils dannie contracted poorly reactive, no jaundice HENT: Atraumatic; oropharynx with ETT/OGT Neck: no JVD Lungs:distant BS CV: RRR Abdomen: Soft, non-tender Extremities: marked dannie leg edema/arm edema Skin:no rash, +scrotal edema Psych: NAD Neuro: Normal strength - Constitutional Vitals: Vital Signs Temp Pulse Resp BP Pulse Ox 97.7 F 79 20 114/61 95 04/26/19 05:33 04/26/19 05:33 04/26/19 05:33 04/26/19 05:33 04/26/19 05:33 Temperature -Last 24 Hours Temperature 97.7 F Temperature 98.0 F Temperature 98.1 F - Labs CBC & Chem 7: 04/25/19 05:58 04/26/19 07:22 Labs: Abnormal lab results 04/21/19 04/26/19 04/26/19 Range/Units 04:22 05:57 06:08 BUN 48 H (9-20) mg/dL Creatinine 2.9 H (0.8-1.5) mg/dL Glucose 112 H (75-100) mg/dL POC Glucose 109 H (70-105) Calcium 12.5 H* (8.4-10.2) mg/dL Phosphorus 5.90 H (2.5-4.5) mg/dL Serum Total Protein 5.7 L (6.1-8.1) g/dL Albumin 2.3 L (3.8-4.8) g/dL Uvefq-7-Iyoqqhnsv 0.5 H (0.2-0.3) g/dL Epeac-1-Qqseemsel 1.0 H (0.5-0.9) g/dL PEP Interpretation see below H 04/26/19 Range/Units 07:22 BUN 46 H (9-20) mg/dL Creatinine 2.8 H (0.8-1.5) mg/dL Glucose (75-100) mg/dL POC Glucose (70-105) Calcium > 13.0 H* (8.4-10.2) mg/dL Phosphorus (2.5-4.5) mg/dL Serum Total Protein (6.1-8.1) g/dL Albumin (3.8-4.8) g/dL Lrhmc-1-Rlizghpcg (0.2-0.3) g/dL Monni-4-Rmlpszmai (0.5-0.9) g/dL PEP Interpretation
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
--- NOTE | 2019-04-26 17:04 | Progress Note ---
Assessment and Plan Assessment and plan: Patient is a 43-year-old man with history of GERD, obesity and mental illness, who presented to [facility] ED on 03/16/2019 with altered mental status. He is visiting from [place] and was brought in by his friend. As per records per family he has been homeless living [address] [place]. When he came to the ER, he was unable to speak or follow commands, in the ER he was found to have SVT with heart rate in the 250s. The patient was shocked and medicated. Also was confused, and had trouble protecting his airway; therefore, he was then intubated. He has had a prolonged hospital course. During this hospital course, he was found to have sepsis with septic shock, acute resp failure, rhabdomyolysis, RUBEN, and multisystem organ failure, toxic metabolic encephalopathy. He was started on hemodialysis-still getting dialysis. patient is much improved. Still has recurrent fever, followed by ID Physician. Patient now on Azactam, Zyvox. He passed his swallow test started on mechanical soft diet today 04/21/19. * Initial rhythm appeared to be SVT * Per friend patient complaining of feeling ill and has some left eye discharge, cold, clammy and diaphrietic by the time arrived to the hospital. Also mentions a possibility of a right axilla abscess. The and went to stay with his girlfriend the last 2 days and this morning when he saw the patient he was ill-appearing but sleeping. * Currently on 4 pressors * Start on Elizabeth culture including coverage for possible Meningitis CHEST 1 VIEW . IMPRESSION: 1. Endotracheal tube in good position. 2. Nasogastric tube doubled back on itself at the level of the salina with the tip not seen. The tube will need to be removed/reposition. CT of the chest, abdomen and pelvis without contrast . IMPRESSION: 1. Parenchymal disease in both lower lobes posteromedially may be related to aspiration pneumonia. 2. Moderately dilated small bowel bowel loops in the mid to upper abdomen anteriorly with mild associated bowel wall thickening. Locali zed enteritis and small bowel ischemia should be considered. CT head/brain wo contrast. IMPRESSION: 1. Some component of diffuse cerebral edema cannot be excluded. However, this finding may be artifactual secondary to patient positioning. Close follow-up is recommended. No definitive signs of herniation or large territorial infarct at this time. 2. Otherwise, no focal mass, hemorrhage, hydrocephalus, or large infarct seen. Acute hypoxic respiratory failure. Was intubated, now extubated. Now on Room air. Continue BiPAP as clinically indicated. SVT with Polymorphic Vtach/Atrial fibrillation. Continue Metoprolol. Cardiology following. No systemic AC regarding AFib in setting of anemia, thrombocytopenia, GI bleed. Acute blood loss anemia. Patient with GI bleed secondary to peptic ulcer disease. EGD completed per GI. Continue PRBCs as needed. GI bleed/peptic ulcer disease. Continue PPI. Transfuse PRBCs as needed. Sepsis/septic shock. Continue antibiotics per ID. Now on Zyvox and Azactam Right Axillary cellulitis/Suspect Aspiration pneumonia/Acute Cystitis Fever, recurrent- Improved ID following Severe Metabolic Acidosis- Resolved Hypercalcemia: Slight improvement. Continue to monitor- give fluids and lasix, recalled Publication Specialist Multi-Organ failure/ Ischemic hepatitis/shock liver. Elevated LFTs improved. Viral hepatitis panel negative Rhabdomyolysis- Resolved Acute Kidney Failure secondary to ATN ANURIC. Patient still on hemodialysis. Patient was started on hemodialysis on 03/18/19 due to worsening metabolic acidosis and hyperkalemia. Baseline renal function is unknown. CT abdomen was negative for obstructive nephropathy. Avoid nephrotoxic agents. Continue hemodialysis per nephrology. Toxic metabolic encephalopathy. Brain MRI showed no acute intracranial abnormality, mild nonspecific chronic white matter changes, fluid throughout the sinuses and mastoid air cells. Swelling both upper ext L>R Doppler US : no DVT LUE Hypokalemia. Correted Replete potassium as needed. Hypernatremia. Bumex was stopped. Follow-up [facility] Nephrology following Now resolved Thrombocytopenia, Presume DIC. Etiology likely secondary to sepsis. Resolved. Rhabdomyolysis. CK normalized. Full code status Continue aggressive PT. will obtain Psych consult given the hallucination History Interval history: Patient seen and examined, no new complaints, still very lethargic. no further hallucination, still unable to ambulate Hospitalist Physical - Physical exam Narrative exam: Constitutional: Well-nourished well-developed. mild distress, confused, temporal wasting Head: Normocephalic atraumatic Eyes: Pupils are equal round and reactive to light Mouth: Moist mucous membranes. Neck: Supple no thyromegaly. No bruit. No JVD Heart: Irregularly irregular. No rubs murmurs or gallop Lungs: Clear to auscultation bilaterally. no rales or rhonchi Abdomen: Soft, nontender. Bowel sound are present. Extremities: No edema, no cyanosis, no clubbing. Neuro: Alert oriented Oriented x2. No focal sensory or motor deficit. Skin: No rashes or hyperpigmented spots Musculoskeletal system: No joint pain or swelling Hematological: No petechia or subcutanous hemorrhages. Immunological: No multiple septic spots on the skin Lymphatic: No generalized lymphadenopathy Psychiatry: Euthymic. Calm. ANXIOUS - Constitutional Vitals: Temp Pulse Resp BP Pulse Ox 98.1 F 78 22 132/77 96 04/26/19 12:18 04/26/19 12:18 04/26/19 12:18 04/26/19 12:18 04/26/19 14:11 General appearance: Present: obese Results - Labs CBC & Chem 7: 04/25/19 05:58 04/26/19 07:22 Labs: Laboratory Last Values WBC 18.0 K/mm3 (4.5-11.0) H 04/25/19 05:58 RBC 2.98 M/mm3 (3.65-5.03) L 04/25/19 05:58 Hgb 8.3 gm/dl (11.8-15.2) L 04/25/19 05:58 Hct 26.5 % (35.5-45.6) L 04/25/19 05:58 MCV 89 fl (84-94) 04/25/19 05:58 MCH 28 pg (28-32) 04/25/19 05:58 MCHC 31 % (32-34) L 04/25/19 05:58 RDW 17.9 % (13.2-15.2) H 04/25/19 05:58 Plt Count 385 K/mm3 (140-440) 04/25/19 05:58 Lymph % (Auto) 10.1 % (13.4-35.0) L 04/25/19 05:58 Jenkins % (Auto) 5.1 % (0.0-7.3) 04/25/19 05:58 Eos % (Auto) 1.5 % (0.0-4.3) 04/25/19 05:58 Baso % (Auto) 0.5 % (0.0-1.8) 04/25/19 05:58 Lymph # 1.8 K/mm3 (1.2-5.4) 04/25/19 05:58 Jenkins # 0.9 K/mm3 (0.0-0.8) H 04/25/19 05:58 Eos # 0.3 K/mm3 (0.0-0.4) 04/25/19 05:58 Baso # 0.1 K/mm3 (0.0-0.1) 04/25/19 05:58 Add Manual Diff Complete 04/11/19 04:16 Total Counted 100 04/11/19 04:16 Seg Neutrophils % 82.8 % (40.0-70.0) H 04/25/19 05:58 Seg Neuts % (Manual) 71.0 % (40.0-70.0) H 04/11/19 04:16 Band Neutrophils % 1.0 % 04/11/19 04:16 Lymphocytes % (Manual) 17.0 % (13.4-35.0) 04/11/19 04:16 Reactive Lymphs % (Man) 0 % 04/11/19 04:16 Monocytes % (Manual) 8.0 % (0.0-7.3) H 04/11/19 04:16 Eosinophils % (Manual) 2.0 % (0.0-4.3) 04/11/19 04:16 Basophils % (Manual) 1.0 % (0.0-1.8) 04/11/19 04:16 Metamyelocytes % 0 % 04/11/19 04:16 Myelocytes % 0 % 04/11/19 04:16 Promyelocytes % 0 % 04/11/19 04:16 Blast Cells % 0 % 04/11/19 04:16 Nucleated RBC % Not Reportable 04/11/19 04:16 Seg Neutrophils # 15.0 K/mm3 (1.8-7.7) H 04/25/19 05:58 Seg Neutrophils # Man 8.2 K/mm3 (1.8-7.7) H 04/11/19 04:16 Band Neutrophils # 0.1 K/mm3 04/11/19 04:16 Lymphocytes # (Manual) 2.0 K/mm3 (1.2-5.4) 04/11/19 04:16 Abs React Lymphs (Man) 0.0 K/mm3 04/11/19 04:16 Monocytes # (Manual) 0.9 K/mm3 (0.0-0.8) H 04/11/19 04:16 Eosinophils # (Manual) 0.2 K/mm3 (0.0-0.4) 04/11/19 04:16 Basophils # (Manual) 0.1 K/mm3 (0.0-0.1) 04/11/19 04:16 Metamyelocytes # 0.0 K/mm3 04/11/19 04:16 Myelocytes # 0.0 K/mm3 04/11/19 04:16 Promyelocytes # 0.0 K/mm3 04/11/19 04:16 Blast Cells # 0.0 K/mm3 04/11/19 04:16 WBC Morphology Not Reportable 04/11/19 04:16 Hypersegmented Neuts Not Reportable 04/11/19 04:16 Hyposegmented Neuts Not Reportable 04/11/19 04:16 Hypogranular Neuts Not Reportable 04/11/19 04:16 Smudge Cells Not Reportable 04/11/19 04:16 Toxic Granulation Not Reportable 04/11/19 04:16 Toxic Vacuolation Not Reportable 04/11/19 04:16 Dohle Bodies Not Reportable 04/11/19 04:16 Pelger-Huet Anomaly Not Reportable 04/11/19 04:16 Joyce Rods Not Reportable 04/11/19 04:16 Platelet Estimate Consistent w auto 04/11/19 04:16 Clumped Platelets Not Reportable 04/11/19 04:16 Plt Clumps, EDTA Not Reportable 04/11/19 04:16 Large Platelets Not Reportable 04/11/19 04:16 Giant Platelets Not Reportable 04/11/19 04:16 Platelet Satelliting Not Reportable 04/11/19 04:16 Plt Morphology Comment Not Reportable 04/11/19 04:16 RBC Morphology Not Reportable 04/11/19 04:16 Dimorphic RBCs Not Reportable 04/11/19 04:16 Polychromasia Not Reportable 04/11/19 04:16 Hypochromasia Not Reportable 04/11/19 04:16 Poikilocytosis Not Reportable 04/11/19 04:16 Anisocytosis Rare 04/11/19 04:16 Microcytosis Rare 04/11/19 04:16 Macrocytosis Not Reportable 04/11/19 04:16 Spherocytes Not Reportable 04/11/19 04:16 Pappenheimer Bodies Not Reportable 04/11/19 04:16 Sickle Cells Not Reportable 04/11/19 04:16 Target Cells Not Reportable 04/11/19 04:16 Tear Drop Cells Not Reportable 04/11/19 04:16 Ovalocytes Not Reportable 04/11/19 04:16 Stomatocytes Few 03/26/19 Unknown Helmet Cells Not Reportable 04/11/19 04:16 Shrestha-[place] Bodies Not Reportable 04/11/19 04:16 [place] Rings Not Reportable 04/11/19 04:16 Samantha Cells Not Reportable 04/11/19 04:16 Bite Cells Not Reportable 04/11/19 04:16 Crenated Cell Not Reportable 04/11/19 04:16 Elliptocytes Not Reportable 04/11/19 04:16 Acanthocytes (Spur) Not Reportable 04/11/19 04:16 Rouleaux Not Reportable 04/11/19 04:16 Hemoglobin C Crystals Not Reportable 04/11/19 04:16 Schistocytes Not Reportable 04/11/19 04:16 Malaria parasites Not Reportable 04/11/19 04:16 Phil Bodies Not Reportable 04/11/19 04:16 Hem Pathologist Commnt No 04/11/19 04:16 PT 15.3 Sec. (12.2-14.9) H 03/29/19 11:48 INR 1.24 (0.87-1.13) H 03/29/19 11:48 APTT 26.6 Sec. (24.2-36.6) 03/28/19 12:00 Fibrinogen 226 mg/dl (211-480) 03/28/19 12:00 D-Dimer 4845.98 ng/mlDDU (0-234) H 03/28/19 12:00 Heparin Anti-Xa Level 0.23 U.I./ml (0.3-0.7) L 03/28/19 05:13 POC ABG pH 7.401 (7.35-7.45) 04/07/19 12:57 ABG pH 7.388 pH Units (7.350-7.450) 04/06/19 05:20 POC ABG pCO2 41.5 (35-45) 04/07/19 12:57 ABG pCO2 38.5 mm Hg 04/06/19 05:20 POC ABG pO2 107 (80-105) H 04/07/19 12:57 ABG pO2 104.0 mm Hg (80.0-90.0) H 04/06/19 05:20 POC ABG HCO3 25.7 (22-26 mml/L) 04/07/19 12:57 ABG HCO3 22.6 mmol/L (20.0-26.0) 04/06/19 05:20 POC ABG Total CO2 27 (23-27mmol/L) 04/07/19 12:57 POC ABG O2 Sat 98 04/07/19 12:57 ABG O2 Saturation 97.8 % (95.0-99.0) 04/06/19 05:20 ABG O2 Content 10.0 (0.0-44) 04/06/19 05:20 POC ABG Base Excess 1 ((-2) - (+3)mmol/L) 04/07/19 12:57 ABG Base Excess -2.1 mmol/L (-2.0-3.0) L 04/06/19 05:20 ABG Hemoglobin 7.3 gm/dl (14.0-18.0) L 04/06/19 05:20 ABG Carboxyhemoglobin 1.7 % (0.0-5.0) 04/06/19 05:20 ABG Methemoglobin 0.6 % (0.0-1.5) 04/06/19 05:20 Oxyhemoglobin 95.5 % (95.0-99.0) 04/06/19 05:20 FiO2 30 % 04/07/19 12:57 Sodium 139 mmol/L (137-145) 04/26/19 07:22 Potassium 3.7 mmol/L (3.6-5.0) 04/26/19 07:22 Chloride 99.5 mmol/L (98-107) 04/26/19 07:22 Carbon Dioxide 23 mmol/L (22-30) 04/26/19 07:22 Anion Gap 20 mmol/L 04/26/19 07:22 BUN 46 mg/dL (9-20) H 04/26/19 07:22 Creatinine 2.8 mg/dL (0.8-1.5) H 04/26/19 07:22 Estimated GFR 25 ml/min 04/26/19 07:22 BUN/Creatinine Ratio 16 % 04/26/19 07:22 Glucose 87 mg/dL (75-100) 04/26/19 07:22 POC Glucose 89 (70-105) 04/26/19 12:28 Lactic Acid 1.90 mmol/L (0.7-2.0) 03/21/19 21:31 Calcium 12.2 mg/dL (8.4-10.2) H* 04/26/19 13:39 Ionized Calcium 3.7 mg/dL (4.8-5.6) L 03/30/19 12:09 Phosphorus 5.90 mg/dL (2.5-4.5) H 04/26/19 05:57 Magnesium 1.90 mg/dL (1.7-2.3) 04/26/19 05:57 Iron 26 ug/dL (49-181) L 04/02/19 05:03 TIBC 138 mcg/dL (250-450) L 04/02/19 05:03 Ferritin 607.0 ng/mL (13.0-400.0) H 04/02/19 05:03 Total Bilirubin 0.40 mg/dL (0.1-1.2) 04/25/19 05:58 Direct Bilirubin 0.4 mg/dL (0-0.2) H 03/31/19 08:20 Indirect Bilirubin 0.1 mg/dL 03/31/19 08:20 AST 17 units/L (5-40) 04/25/19 05:58 ALT 21 units/L (7-56) 04/25/19 05:58 Alkaline Phosphatase 53 units/L (35-129) 04/25/19 05:58 Total Creatine Kinase 62 units/L (55-170) 04/07/19 05:40 CK-MB (CK-2) 54.3 ng/mL (0.0-4.0) H 03/17/19 07:16 CK-MB (CK-2) Rel Index 0.0 (0-4) 03/17/19 07:16 Troponin T 0.058 ng/mL (0.00-0.029) H 03/17/19 07:16 C-Reactive Protein 7.10 mg/dL (0.00-1.30) H 04/17/19 04:15 Serum Total Protein 5.7 g/dL (6.1-8.1) L 04/21/19 04:22 Total Protein 6.5 g/dL (6.3-8.2) 04/25/19 05:58 Albumin 3.0 g/dL (3.9-5) L 04/25/19 05:58 Albumin/Globulin Ratio 0.9 % 04/25/19 05:58 Fhlai-9-Xvoxjirlr 0.5 g/dL (0.2-0.3) H 04/21/19 04:22 Bgplt-1-Tupcdimta 1.0 g/dL (0.5-0.9) H 04/21/19 04:22 Beta Globulins 0.4 g/dL (0.2-0.5) 04/21/19 04:22 Gamma Globulins 1.1 g/dL (0.8-1.7) 04/21/19 04:22 Abnorm Protein Band 1 see below 04/21/19 04:22 PEP Interpretation see below H 04/21/19 04:22 Triglycerides 309 mg/dL (2-149) H 03/29/19 06:22 Cholesterol 88 mg/dL (50-199) 03/16/19 22:32 LDL Cholesterol Direct 10 mg/dL (50-130) L 03/16/19 22:32 HDL Cholesterol 7 mg/dL (40-59) L 03/16/19 22:32 Cholesterol/HDL Ratio 12.57 % 03/16/19 22:32 Vitamin B12 903.0 pg/mL (211-911) 04/02/19 05:03 Folate 8.05 ng/mL (7.3-26.0) 04/02/19 05:03 Procalcitonin 25.42 ng/mL (<0.15) 03/27/19 19:21 TSH 2.200 mlU/mL (0.270-4.200) 03/16/19 17:05 Free T4 0.72 ng/dL (0.76-1.46) L 03/16/19 17:05 PTH Intact 329.9 pg/mL (15-65) H 03/25/19 05:00 Urine Color Yellow (Yellow) 04/15/19 22:11 Urine Turbidity Clear (Clear) 04/15/19 22:11 Urine pH 6.0 (5.0-7.0) 04/15/19 22:11 Ur Specific [place] 1.010 (1.003-1.030) 04/15/19 22:11 Urine Protein 30 mg/dl mg/dL (Negative) 04/15/19 22:11 Urine Glucose (UA) Neg mg/dL (Negative) 04/15/19 22:11 Urine Ketones Neg mg/dL (Negative) 04/15/19 22:11 Urine Blood Mod (Negative) 04/15/19 22:11 Urine Nitrite Neg (Negative) 04/15/19 22:11 Urine Bilirubin Neg (Negative) 04/15/19 22:11 Urine Urobilinogen < 2.0 mg/dL (<2.0) 04/15/19 22:11 Ur Leukocyte Esterase Neg (Negative) 04/15/19 22:11 Urine WBC (Auto) 4.0 /HPF (0.0-6.0) 04/15/19 22:11 Urine RBC (Auto) 2.0 /HPF (0.0-6.0) 04/15/19 22:11 U Epithel Cells (Auto) < 1.0 /HPF (0-13.0) 04/15/19 22:11 Amorphous Crystals 1+ 04/05/19 16:50 Urine Mucus Few /HPF 03/17/19 16:05 Urine Sperm 2+ /HPF (BRADLEY [employer]WMEMBER) 03/17/19 16:05 Urine Eosinophils None seen (None Seen) 03/17/19 16:05 Urine Creatinine 106.6 mg/dL (0.1-20.0) H 03/17/19 16:05 Urine Sodium 95 mmol/L 03/17/19 16:05 Vancomycin Trough 11.5 ug/mL (5.0-20.0) 03/18/19 13:19 Random Vancomycin 10.8 ug/mL (0-40.0) 04/14/19 03:55 Salicylates < 0.3 mg/dL (2.8-20.0) L 03/16/19 17:05 Urine Opiates Screen Presumptive negative 03/17/19 16:05 Urine Methadone Screen Presumptive negative 03/17/19 16:05 Acetaminophen < 5.0 ug/mL (10.0-30.0) L 03/16/19 17:05 Ur Barbiturates Screen Presumptive negative 03/17/19 16:05 Ur Phencyclidine Scrn Presumptive negative 03/17/19 16:05 Ur Amphetamines Screen Presumptive negative 03/17/19 16:05 U Benzodiazepines Scrn Presumptive positive 03/17/19 16:05 Urine Cocaine Screen Presumptive negative 03/17/19 16:05 U Marijuana (THC) Screen Presumptive negative 03/17/19 16:05 Drugs of Abuse Note Disclamer 03/17/19 16:05 Plasma/Serum Alcohol < 0.01 % (0-0.07) 03/16/19 17:05 LANDY Screen Negative (Negative) 04/17/19 04:15 Complement C3 150 mg/dL (82-185) 04/17/19 04:15 Complement C4 37 mg/dL (15-53) 04/17/19 04:15 Hepatitis A IgM Ab Non-reactive (NonReactive) 04/18/19 10:02 Hep Bs Antigen Non-reactive (Negative) 04/18/19 10:02 Hep B Core IgM Ab Non-reactive (NonReactive) 04/18/19 10:02 Hepatitis C Antibody Non-reactive (NonReactive) 04/18/19 10:02 HIV 1&2 Antibody Rapid Non react (Non React) 03/17/19 11:52 HIV P24 Antigen Non react (Non React) 03/17/19 11:52 Influenza A (Rapid) Negative (Negative) 03/17/19 17:00 Influenza B (Rapid) Negative (Negative) 03/17/19 17:00 Group A Strep Rapid Negative (Negative) 03/17/19 17:00 Miscellaneous Test Flexitest 1 03/21/19 12:00 Blood Type A POSITIVE 04/02/19 16:34 Antibody Screen Negative 04/02/19 16:34 Crossmatch See Detail 04/02/19 16:34 Active Medications - Current Medications Current Medications: Generic Name Dose Route Start Last Admin Trade Name Freq PRN Reason Stop Dose Admin Acetaminophen 650 mg 04/02/19 23:26 04/21/19 20:29 Tylenol PO 650 mg Q4H PRN Administration Pain, Mild (1-3),temp>100.5 Albuterol 2.5 mg 03/29/19 13:08 Proventil IH Q4HRT PRN Shortness Of Breath Amiodarone HCl 200 mg 04/15/19 22:00 04/26/19 09:02 Cordarone PO 200 mg BID PAOLO Administration Lipase/Protease/Amylase 1 each 04/20/19 13:17 Pancrekarly Purcell 10,500 Unit FEEDTUBE PRN PRN For Clogged Feeding Tube Bacitracin 1 applic 04/17/19 08:00 Antibiotic Oint TP Q4H PRN upper lip sore/open Dextrose 50 gm 04/17/19 08:00 D50w (25gm) Vial IV Q1H PRN Hypoglycemia Epoetin Jet 20,000 unit 03/31/19 10:15 04/20/19 12:47 Procrit SUB-Q 20,000 unit NEYMAR PRN Administration hemodialysis Furosemide 40 mg 04/26/19 18:00 Lasix IV 04/26/19 18:01 ONCE ONE Hydralazine HCl 20 mg 04/14/19 03:00 04/14/19 03:11 Apresoline IV 20 mg Q4H PRN Administration hypertemsion Hydrophilic Ointment 1 applic 03/16/19 15:50 04/19/19 18:24 Vaseline Lip Therapy TP 1 applic Q2HR PRN Administration Dry Lips Aztreonam 2 gm in 100 mls @ 100 mls/hr 04/17/19 18:00 04/26/19 09:02 Azactam/Ns 2 Gm/100 Ml IV 100 mls/hr Q24HR PAOLO Administration Protocol Linezolid 600 mg in 300 mls @ 300 mls/hr 04/17/19 17:00 04/26/19 05:07 Zyvox 600mg/300ml IV 300 mls/hr Q12H PAOLO Administration Protocol Sodium Chloride 100 mls @ 999 mls/hr 04/20/19 08:41 Nacl 0.9% IV NEYMAR PRN Hypotension Pamidronate Disodium 60 mg/ 1,006.6667 mls @ 100 mls/hr 04/26/19 10:30 04/26/19 12:26 Sodium Chloride IV 04/26/19 20:33 100 mls/hr ONCE ONE Administration Sodium Chloride 500 mls @ 999 mls/hr 04/26/19 16:56 Nacl 0.9% 500 Ml IV 04/26/19 17:26 ONCE ONE Lansoprazole 30 mg 04/11/19 10:00 04/26/19 09:02 Prevacid Solutab FEEDTUBE 30 mg BID PAOLO Administration Melatonin 5 mg 04/26/19 21:00 Melatonin PO QHS PRN Sleep Metoprolol Tartrate 5 mg 04/16/19 22:24 04/22/19 00:20 Lopressor IV 5 mg Q6H PRN Administration For HR >120 Metoprolol Tartrate 25 mg 04/17/19 20:00 04/26/19 14:46 Lopressor PO 25 mg TID PAOLO Administration Multi-Ingred Cream/Lotion/Oil/Oint 1 applic 03/16/19 15:50 03/19/19 20:10 Artificial Tears Ophth Oint OU 1 applic Q4HR PRN Administration Dry Eye(s) Simple Syrup 15 ml 04/20/19 13:17 Simple Syrup FEEDTUBE PRN PRN Hypoglycemia Simple Syrup 30 ml 04/20/19 13:29 Simple Syrup FEEDTUBE PRN PRN Hypoglycemia Sodium Bicarbonate 325 mg 04/20/19 13:17 Sodium Bicarbonate FEEDTUBE PRN PRN For Clogged Feeding Tube Sodium Hypochlorite 1 applic 04/18/19 11:00 04/26/19 09:04 Dakin's Half Strength TP 10 applicatio BID PAOLO Administration Nutrition/Malnutrition Assess - Dietary Evaluation Nutrition/Malnutrition Findings: Nutrition Notes Start: 03/17/19 14:22 Freq: Status: Active Protocol: Document 04/20/19 12:15 RS (Rec: 04/20/19 13:13 RS [id number]) Co-Sign 04/20/19 12:15 LM Nutrition Notes Initial or Follow up Reassessment Current Diagnosis Acute Kidney Injury,Heart Failure Other Pertinent Diagnosis on HD, Septic shock,Multiple organ failure, encephalopathy, Aspiration pneu Current Diet Nepro at 50 ml/hr Labs/Tests Na: 147 K: 3.3 BUN: 45 Cr: 2.9 Pertinent Medications Reviewed Height 6 ft Weight 147 kg [place] Body Weight (kg) 80.90 BMI 43.9 Subjective/Other Information Observed Nepro infusing at goal rate of 50mL/hr. Pt tolerating TF well. Percent of energy/protein needs met: 100%/100% Burn Absent Trauma Absent Minimum of two criteria No #1 Nutrition Diagnosis Inadequate oral intake Diagnosis Progress(for reassessment Continues documentation) Is patient on ventilator? No Is Patient Ambulatory and/or Out of Bed No REE-([facility]-confined to bed) 2874.156 Kcal/Kg value to use for calculation 14 Approximate Energy Requirements Using 2057 kcal/Kg Calculation Used for Recommendations Kcal/kg Additional Notes Protein: 97-121g (1.2-1.5g/kg, IBW) Fluids:1 ml/kcal or per MD Nutrition Intervention Nutrition Support: Nepro 1.8 at 50 ml/hr Water flush 300 ml q4hr until hypernatremia resolves, or per MD Water flush 150 ml q4hr once hypernatremia resolves, or per MD Kcal 2,160 Protein (gm) 97 Fluid (mL) 872 Goal #1 TF tolerance Goal #2 Continue to meet at least 75% of calorie and protein needs via TF Anticipated Discharge Needs: Unable to determine at this time Follow-Up By: 04/27/19 Additional Comments Follow for TF tolerance
[2019-04-26] MEDS: MELATONIN 5 MG TAB PO PRN (23:07)
[2019-04-27] MEDS: LINEZOLID 600 MG/300 ML BAG IV SCH (04:27)
[2019-04-27 05:23] LABS: Basophils # (Auto) 0.1 K/mm3 (0.0-0.1); Basophils % (Auto) 0.8 % (0.0-1.8); Eosinophils # (Auto) 0.4 K/mm3 (0.0-0.4); Eosinophils % (Auto) 3.7 % (0.0-4.3); Hematocrit 26.3 % (35.5-45.6); Hemoglobin 8.6 gm/dl (11.8-15.2); Lymphocytes # (Auto) 1.4 K/mm3 (1.2-5.4); Lymphocytes % (Auto) 11.9 % (13.4-35.0); Mean Corpuscular HGB Conc 33 % (32-34); Mean Corpuscular Volume 87 fl (84-94); Monocytes # (Auto) 0.6 K/mm3 (0.0-0.8); Monocytes % (Auto) 5.3 % (0.0-7.3); Platelet Count 397 K/mm3 (140-440); Red Blood Count 3.01 M/mm3 (3.65-5.03); Red Cell Distribution Width 17.6 % (13.2-15.2)
[2019-04-27 05:48] LABS: Albumin 2.8 g/dL (3.9-5)
[2019-04-27 06:00] LABS: Calcium 12.3 mg/dL (8.4-10.2)
--- NOTE | 2019-04-27 06:34 | Hem/Onc Progress Note ---
Assessment and Plan 1. h/o Anemia. The patient has history of bleeding. 2. rt Internal jugular partial thrombosis. The patient was started on heparin. This has been held due to bleeding 3. Gastrointestinal bleed. 4. h/o Elevated creatinine kinase. 5. h/o Low calcium. 6. h/o Thrombocytopenia. 7. h/o Renal failure. 8. h/o Intubation. 9. s/p Transfusion support. 10. Leukocytosis. At this time, supportive care may help the patient. The patient's platelet was low at admission. Urine toxicology was negative. awake h/o rt IJ dvt - off anticoagulation - due to bleeding platelet - > 100 s/p iv iron trial pt was on BIPAP - then o2 support h/o tachycardia - on meds - RT IJ line remvoed moving arms>legs left arm swelling -dvt study negative for left arm rt IJ dvt is better d/w pt reg DVT - bleed - anemia psych consulted placement being looked into 04/27 hypercalcemia - likely sec to immobilization pt got pamidronate and hydration his calcium was low at admission - Patient Problems (1) DVT (deep venous thrombosis) Current Visit: Yes Status: Acute Subjective Date of service: 04/27/19 Principal diagnosis: hypercalcemia - anemia Interval history: trying to move legs Objective - Exam Narrative Exam: Pain - none now General appearance - awake Performance status limited self care Eyes - no icterus ENT - on o2 LNs cervical not palpable Neck - no LN Respiratory Normal Breath sounds - CTA anteriorly CVS S1 S2 + Extremities edema + better General GI Soft Rectal deferred male - deferred Skin warm Musculoskeletal moves arms>legs Neurologically awake - Constitutional Vitals: Last Vital Signs Temp 98.0 F 04/27/19 06:00 Pulse 75 04/27/19 06:00 Resp 18 04/27/19 06:00 BP 129/74 04/27/19 06:00 Pulse Ox 95 04/27/19 06:00 - Labs Lab Results: Laboratory Results - last 24 hr 04/26/19 04/26/19 04/26/19 05:57 07:22 12:28 WBC RBC Hgb Hct MCV MCH MCHC RDW Plt Count Lymph % (Auto) [place] % (Auto) Eos % (Auto) Baso % (Auto) Lymph # [place] # Eos # Baso # Seg Neutrophils % Seg Neutrophils # Sodium 140 139 Potassium 3.6 3.7 Chloride 100.2 99.5 Carbon Dioxide 24 23 Anion Gap 19 20 BUN 48 H 46 H Creatinine 2.9 H 2.8 H Estimated GFR 24 25 BUN/Creatinine Ratio 17 16 Glucose 112 H 87 POC Glucose 89 Calcium 12.5 H* > 13.0 H* Phosphorus 5.90 H Magnesium 1.90 Total Bilirubin AST ALT Alkaline Phosphatase Total Protein Albumin Albumin/Globulin Ratio 04/26/19 04/26/19 04/26/19 13:39 18:34 23:27 WBC RBC Hgb Hct MCV MCH MCHC RDW Plt Count Lymph % (Auto) [place] % (Auto) Eos % (Auto) Baso % (Auto) Lymph # [place] # Eos # Baso # Seg Neutrophils % Seg Neutrophils # Sodium Potassium Chloride Carbon Dioxide Anion Gap BUN Creatinine Estimated GFR BUN/Creatinine Ratio Glucose POC Glucose 76 73 Calcium 12.2 H* Phosphorus Magnesium Total Bilirubin AST ALT Alkaline Phosphatase Total Protein Albumin Albumin/Globulin Ratio 04/27/19 04/27/19 05:05 05:05 WBC 11.9 H RBC 3.01 L Hgb 8.6 L Hct 26.3 L MCV 87 MCH 29 MCHC 33 RDW 17.6 H Plt Count 397 Lymph % (Auto) 11.9 L [place] % (Auto) 5.3 Eos % (Auto) 3.7 Baso % (Auto) 0.8 Lymph # 1.4 [place] # 0.6 Eos # 0.4 Baso # 0.1 Seg Neutrophils % 78.3 H Seg Neutrophils # 9.4 H Sodium 136 L Potassium 3.2 L Chloride 98.9 Carbon Dioxide 24 Anion Gap 16 BUN 40 H Creatinine 2.5 H Estimated GFR 28 BUN/Creatinine Ratio 16 Glucose 113 H POC Glucose Calcium 12.3 H* Phosphorus Magnesium Total Bilirubin 0.40 AST 14 ALT 14 Alkaline Phosphatase 53 Total Protein 6.2 L Albumin 2.8 L Albumin/Globulin Ratio 0.8 Medications & Allergies - Medications Allergies/Adverse Reactions: Allergies No Known Allergies Allergy (Unverified 03/16/19 17:17) Home Medications: Home Medications Medication Instructions Recorded Confirmed Last Taken Type Unobtainable 03/18/19 04/20/19 Unknown History Active Medications: Generic Name Dose Route Start Last Admin Trade Name Freq PRN Reason Stop Dose Admin Acetaminophen 650 mg 04/02/19 23:26 04/21/19 20:29 Tylenol PO 650 mg Q4H PRN Administration Pain, Mild (1-3),temp>100.5 Albuterol 2.5 mg 03/29/19 13:08 Proventil IH Q4HRT PRN Shortness Of Breath Amiodarone HCl 200 mg 04/15/19 22:00 04/26/19 21:54 Cordarone PO 200 mg BID PAOLO Administration Lipase/Protease/Amylase 1 each 04/20/19 13:17 Pancrekarly Purcell 10,500 Unit FEEDTUBE PRN PRN For Clogged Feeding Tube Bacitracin 1 applic 04/17/19 08:00 Antibiotic Oint TP Q4H PRN upper lip sore/open Dextrose 50 gm 04/17/19 08:00 D50w (25gm) Vial IV Q1H PRN Hypoglycemia Epoetin Jet 20,000 unit 03/31/19 10:15 04/20/19 12:47 Procrit SUB-Q 20,000 unit NEYMAR PRN Administration hemodialysis Hydralazine HCl 20 mg 04/14/19 03:00 04/14/19 03:11 Apresoline IV 20 mg Q4H PRN Administration hypertemsion Hydrophilic Ointment 1 applic 03/16/19 15:50 04/19/19 18:24 Vaseline Lip Therapy TP 1 applic Q2HR PRN Administration Dry Lips Aztreonam 2 gm in 100 mls @ 100 mls/hr 04/17/19 18:00 04/26/19 09:02 Azactam/Ns 2 Gm/100 Ml IV 100 mls/hr Q24HR PAOLO Administration Protocol Linezolid 600 mg in 300 mls @ 300 mls/hr 04/17/19 17:00 04/27/19 04:27 Zyvox 600mg/300ml IV 300 mls/hr Q12H PAOLO Administration Protocol Sodium Chloride 100 mls @ 999 mls/hr 04/20/19 08:41 Nacl 0.9% IV NEYMAR PRN Hypotension Lansoprazole 30 mg 04/11/19 10:00 04/26/19 21:54 Prevacid Solutab FEEDTUBE 30 mg BID PAOLO Administration Melatonin 5 mg 04/26/19 21:00 04/26/19 23:07 Melatonin PO 5 mg QHS PRN Administration Sleep Metoprolol Tartrate 5 mg 04/16/19 22:24 04/22/19 00:20 Lopressor IV 5 mg Q6H PRN Administration For HR >120 Metoprolol Tartrate 25 mg 04/17/19 20:00 04/26/19 20:42 Lopressor PO 25 mg TID PAOLO Administration Multi-Ingred Cream/Lotion/Oil/Oint 1 applic 03/16/19 15:50 03/19/19 20:10 Artificial Tears Ophth Oint OU 1 applic Q4HR PRN Administration Dry Eye(s) Simple Syrup 15 ml 04/20/19 13:17 Simple Syrup FEEDTUBE PRN PRN Hypoglycemia Simple Syrup 30 ml 04/20/19 13:29 Simple Syrup FEEDTUBE PRN PRN Hypoglycemia Sodium Bicarbonate 325 mg 04/20/19 13:17 Sodium Bicarbonate FEEDTUBE PRN PRN For Clogged Feeding Tube Sodium Hypochlorite 1 applic 04/18/19 11:00 04/26/19 21:55 Dakin's Half Strength TP 1 applicatio BID PAOLO Administration
--- NOTE | 2019-04-27 08:55 | Progress Note ---
Assessment and Plan 1. Acute kidney injury: Vasomotor RUBEN in the setting of shock / volume depletion / Rhabdo. Baseline renal function is unknown. CT abdomen was negative for obstructive nephropathy. Patient was started on hemodialysis on 03/18/19 due to worsening metabolic acidosis and hyperkalemia. Hemodialysis: 03/18, 03/19, 03/20, 03/22, 03/23, 03/24, 03/26, 03/28, 03/29, 03/31, 04/02, 04/04, 04/06, 04/09, 04/11, 04/13, 04/18, 04/20. Monitor for [employer] needs. Renal function continue to improve. Monitor renal function. Renal prognosis is guarded. Avoid nephrotoxic agents. Meds dosage based on GFR. 2. FEN: Hypercalcemia, s/p Pamidronate 04/26. Metabolic acidosis, improved. Volume overload, improving. Replete K. Monitor lytes. 3. Septic shock: Currently off pressors. Recurrent fever. Per ID recommendation the dialysis catheter was removed on 04/20. 4. Rhabdomyolysis: Improved. 5. A.fib with RVR: On Amiodarone and Metoprolol. 6. Respiratory failure: Extubated. 7. Severe anemia: S/p PRBC. Epogen as needed. 8. Elevated transaminases: Improved. 9. Encephalopathy: Improving. Examination: General appearance: well-developed, appears stated age, obese, not in distress HEENT: Atraumatic EYES: Pupils reacting to light Neck: supple Respiratory: faint rales noted Cardiology: regular, S1S2 heard, no murmur Gastrointestinal: obese, BS heard, not tender Integumentary: no rash noted Neurologic: alert, follows command, conversing, oriented Ext: L UE edema noted Hemodialysis access: None Subjective Date of service: 04/27/19 Principal diagnosis: hypercalcemia - anemia Interval history: Patient was seen and examined at the bedside. Doing ok. Objective - Vital Signs Vital signs: Vital Signs - 12hr 04/26/19 04/26/19 04/27/19 22:00 23:40 06:00 Temperature 98.0 F 98.0 F Pulse Rate 73 75 Respiratory 18 18 Rate Blood Pressure 135/74 129/74 O2 Sat by Pulse 98 94 95 Oximetry - Lab 04/27/19 05:05 04/27/19 05:05 Most recent lab results ABG pH 7.388 pH Units (7.350-7.450) 04/06/19 05:20 ABG pCO2 38.5 mm Hg 04/06/19 05:20 ABG pO2 104.0 mm Hg (80.0-90.0) H 04/06/19 05:20 ABG HCO3 22.6 mmol/L (20.0-26.0) 04/06/19 05:20 ABG O2 Saturation 97.8 % (95.0-99.0) 04/06/19 05:20 Calcium 12.3 mg/dL (8.4-10.2) H* 04/27/19 05:05 Phosphorus 5.90 mg/dL (2.5-4.5) H 04/26/19 05:57 Magnesium 1.90 mg/dL (1.7-2.3) 04/26/19 05:57 Urine Creatinine 106.6 mg/dL (0.1-20.0) H 03/17/19 16:05 Urine Sodium 95 mmol/L 03/17/19 16:05 Medications & Allergies - Medications Allergies/Adverse Reactions: Allergies No Known Allergies Allergy (Unverified 03/16/19 17:17) Home Medications: Home Medications Medication Instructions Recorded Confirmed Last Taken Type Unobtainable 03/18/19 04/20/19 Unknown History Active Medications: Generic Name Dose Route Start Last Admin Trade Name Freq PRN Reason Stop Dose Admin Acetaminophen 650 mg 04/02/19 23:26 04/21/19 20:29 Tylenol PO 650 mg Q4H PRN Administration Pain, Mild (1-3),temp>100.5 Albuterol 2.5 mg 03/29/19 13:08 Proventil IH Q4HRT PRN Shortness Of Breath Amiodarone HCl 200 mg 04/15/19 22:00 04/26/19 21:54 Cordarone PO 200 mg BID PAOLO Administration Lipase/Protease/Amylase 1 each 04/20/19 13:17 Pancrekarly [place] 10,500 Unit FEEDTUBE PRN PRN For Clogged Feeding Tube Bacitracin 1 applic 04/17/19 08:00 Antibiotic Oint TP Q4H PRN upper lip sore/open Calcitonin [place] 50 unit 04/27/19 10:00 Miacalcin SUB-Q Q12HR PAOLO Dextrose 50 gm 10/22/19 08:00 D50w (25gm) Vial IV Q1H PRN Hypoglycemia Epoetin Jet 20,000 unit 03/31/19 10:15 04/20/19 12:47 Procrit SUB-Q 20,000 unit NEYMAR PRN Administration hemodialysis Hydralazine HCl 20 mg 04/14/19 03:00 04/14/19 03:11 Apresoline IV 20 mg Q4H PRN Administration hypertemsion Hydrophilic Ointment 1 applic 03/16/19 15:50 04/19/19 18:24 Vaseline Lip Therapy TP 1 applic Q2HR PRN Administration Dry Lips Aztreonam 2 gm in 100 mls @ 100 mls/hr 04/17/19 18:00 04/26/19 09:02 Azactam/Ns 2 Gm/100 Ml IV 100 mls/hr Q24HR PAOLO Administration Protocol Linezolid 600 mg in 300 mls @ 300 mls/hr 04/17/19 17:00 04/27/19 04:27 Zyvox 600mg/300ml IV 300 mls/hr Q12H PAOLO Administration Protocol Sodium Chloride 100 mls @ 999 mls/hr 04/20/19 08:41 Nacl 0.9% IV NEYMAR PRN Hypotension Lansoprazole 30 mg 04/11/19 10:00 04/26/19 21:54 Prevacid Solutab FEEDTUBE 30 mg BID PAOLO Administration Melatonin 5 mg 04/26/19 21:00 04/26/19 23:07 Melatonin PO 5 mg QHS PRN Administration Sleep Metoprolol Tartrate 5 mg 04/16/19 22:24 04/22/19 00:20 Lopressor IV 5 mg Q6H PRN Administration For HR >120 Metoprolol Tartrate 25 mg 04/17/19 20:00 04/26/19 20:42 Lopressor PO 25 mg TID PAOLO Administration Multi-Ingred Cream/Lotion/Oil/Oint 1 applic 03/16/19 15:50 03/19/19 20:10 Artificial Tears Ophth Oint OU 1 applic Q4HR PRN Administration Dry Eye(s) Simple Syrup 15 ml 04/20/19 13:17 Simple Syrup FEEDTUBE PRN PRN Hypoglycemia Simple Syrup 30 ml 04/20/19 13:29 Simple Syrup FEEDTUBE PRN PRN Hypoglycemia Sodium Bicarbonate 325 mg 04/20/19 13:17 Sodium Bicarbonate FEEDTUBE PRN PRN For Clogged Feeding Tube Sodium Hypochlorite 1 applic 04/18/19 11:00 04/26/19 21:55 Dakin's Half Strength TP 1 applicatio BID PAOLO Administration
[2019-04-27] MEDS ORDERED: POTASSIUM CHLORIDE ER 20 MEQ TAB PO NR (08:56)
[2019-04-27] MEDS: METOPROLOL TARTRATE 25 MG TAB PO SCH ×3 (10:00→22:11)
[2019-04-27] MEDS: AZTREONAM/NS 2 GM/100 ML 2 GM/100 ML VIAL IV SCH (11:03)
[2019-04-27] MEDS: LANSOPRAZOLE 30 MG SOLUTAB FEEDTUBE SCH ×2 (11:04→22:11)
[2019-04-27] MEDS: AMIODARONE 200 MG TAB PO SCH ×2 (11:04→22:11)
--- NOTE | 2019-04-27 11:54 | Progress Note ---
Subjective - Reason for Consult Consult date: 04/27/19 Reason for consult: Psychiatry follow-up - Chief Complaint Chief complaint: "I slept okay last night" 43 y.o. white male who presented to the ER for AMS. Psychiatry was initially consulted to see the patient for NMS (03/20/2019). Today the patient was calm and cooperative during the assessment. He stated that he got rest last night. He continue to be adamant about how he ended up in the hospital. He stated that he plan to return to [place] once discharged. He denies SI/HI's and AVH's. Per collateral from the patient's brother Jean Caballero at , he stated that his brother has seen a psychiatrist in the past after he and lost several jobs. He stated that their family have taken care of the patient for a "few years" because he will not work. 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 Mr Jean Caballero stated that his brother showed symptoms of depression prior to seeing a psychiatrist. He denies that the patient has a substance or alcohol abuse hx. Mental Status Exam - Vital signs Last Vital Signs Temp 98.0 F 04/27/19 06:00 Pulse 75 04/27/19 06:00 Resp 18 04/27/19 06:00 BP 129/74 04/27/19 06:00 Pulse Ox 95 04/27/19 09:36 - Exam Narrative exam: MSE: Appearance: in hospital attire Behavior: regular eye contact Speech: "okay" Mood: "okay" Affect: congruent to mood Thought Process: circumstantial Thought Content: denies SI/HI's and AVH's Motor Activity: ambulatory Cognition: A/O x3 Insight: variable Judgment: variable Assessment and Plan Impression: Today the patient was calm and cooperative during the assessment. Recommendation/Plan: Continue Melatonin 5 mg PO HS PRN for sleep. Will follow up with the patient in 24 hours. Dispo: The patient can follow up with [facility] for outpatient psy services. Staffed with Dr Millie Li.
--- NOTE | 2019-04-27 12:14 | Progress Note ---
Assessment and Plan The patient's cardiac status is stable. Continue current management. Possible ischemic evaluation next week. We will follow peripherally over the weekend. The patient has been seen in conjunction with Dr. Rojas, who agrees with the assessment and plan. - Patient Problems (1) Septic shock Current Visit: Yes Status: Acute (2) Acute respiratory failure Current Visit: Yes Status: Acute Qualifiers: Respiratory failure complication: hypoxia Qualified Code(s): J96.01 - Acute respiratory failure with hypoxia (3) Ventricular tachycardia Current Visit: Yes Status: Acute (4) Metabolic encephalopathy Current Visit: Yes Status: Acute (5) Elevated LFTs Current Visit: Yes Status: Acute (6) Enteritis Current Visit: Yes Status: Suspected (7) Acute renal failure Current Visit: Yes Status: Acute Qualifiers: Acute renal failure type: with acute tubular necrosis Qualified Code(s): N17.0 - Acute kidney failure with tubular necrosis (8) Aspiration pneumonia Current Visit: Yes Status: Acute Qualifiers: Aspiration pneumonia type: unspecified (9) Hypomagnesemia Current Visit: Yes Status: Acute (10) Multi-organ system dysfunction Current Visit: Yes Status: Acute (11) Rhabdomyolysis Current Visit: Yes Status: Acute (12) SVT (supraventricular tachycardia) Current Visit: Yes Status: Acute (13) Thrombocytopenia Current Visit: Yes Status: Resolved Subjective Date of service: 04/27/19 Principal diagnosis: hypercalcemia - anemia Interval history: The patient is lying in bed in [facility]. He has no cardiac complaints. Left hand and arm significantly edematous - B/L UE US on 04/18 negative for acute findings. Telemetry reviewed - SR in 80s. Objective Last Vital Signs Temp 98.0 F 04/27/19 06:00 Pulse 75 04/27/19 06:00 Resp 18 04/27/19 06:00 BP 129/74 04/27/19 06:00 Pulse Ox 95 04/27/19 09:36 - Physical Examination General: No Apparent Distress HEENT: Positive: PERRL, EOMI, Normocephaly, Mucus Membranes Moist Neck: Positive: neck supple, trachea midline Cardiac: Positive: Reg Rate and Rhythm Lungs: Positive: Normal Exam Neuro: Positive: Grossly Intact, Other Abdomen: Positive: Soft, Active Bowel Sounds. Negative: Tender /Rectal: Other (deferred) Skin: Positive: Clear. Negative: Rash Musculoskeletal: Normal Range of Motion, other (LUE swollen ) Extremities: Present: +3 Edema (LUE). Absent: edema - Labs and Meds Cardiac Enzymes 04/27/19 Range/Units 05:05 AST 14 (5-40) units/L CBC 04/27/19 Range/Units 05:05 WBC 11.9 H (4.5-11.0) K/mm3 RBC 3.01 L (3.65-5.03) M/mm3 Hgb 8.6 L (11.8-15.2) gm/dl Hct 26.3 L (35.5-45.6) % Plt Count 397 (140-440) K/mm3 Lymph # 1.4 (1.2-5.4) K/mm3 [place] # 0.6 (0.0-0.8) K/mm3 Eos # 0.4 (0.0-0.4) K/mm3 Baso # 0.1 (0.0-0.1) K/mm3 Comprehensive Metabolic Panel 04/26/19 04/27/19 Range/Units 13:39 05:05 Sodium 136 L (137-145) mmol/L Potassium 3.2 L (3.6-5.0) mmol/L Chloride 98.9 (98-107) mmol/L Carbon Dioxide 24 (22-30) mmol/L BUN 40 H (9-20) mg/dL Creatinine 2.5 H (0.8-1.5) mg/dL Glucose 113 H (75-100) mg/dL Calcium 12.2 H* 12.3 H* (8.4-10.2) mg/dL AST 14 (5-40) units/L ALT 14 (7-56) units/L Alkaline Phosphatase 53 (35-129) units/L Total Protein 6.2 L (6.3-8.2) g/dL Albumin 2.8 L (3.9-5) g/dL - Imaging and Cardiology Echo: report reviewed ( EF 40-45%, impaired relaxation. ) - EKG Sinus rhythms and dysrhythmias: sinus rhythm - Allied health notes Allied health notes reviewed: nursing
--- NOTE | 2019-04-27 13:24 | Progress Note ---
Assessment and Plan Severe sepsis with shock. Right axilla abscess versus localized pannus/fatty collection. Acute hypoxemic respiratory failure, on mechanical ventilator support. Likely aspiration pneumonia, bilateral. Morbid obesity. Rhabdomyolysis. Acute kidney injury. Leukocytosis. Morbid obesity. Metabolic acidosis. Lactic acidosis. Hypomagnesemia. Elevated serum transaminases/possible shock liver. Acute encephalopathy, toxic metabolic versus anoxic - continue BIPAP scheduled qhs - will need outpatient PSG - continue aggressive PT/OT as tolerated - continue ST evaluation and advance diet as tolerated - continue prn albuterol treatments - continue to wean FiO2 for sats > 90% - azotemia per nephrology (non-oliguric and last HD about a week ago) - continue oral amiodarone for A-fib - prn supportive blood transfusions to keep serum Hb > 7.0 - Monitor hemodynamics closely - Transfuse PRBC's to keep HgB > 7g/dL - continue mobility protocols and off loading as tolerated for pressure ulcer prophylaxis - continue to avoid nephrotoxins, adjust all medications for GFR and CRCL - continue GI & VTE prophylaxis with - accuchecks with glycemic control per SSI for target BG of 140-180 mg/dl acutely - continue other care per attending / other consultants ... re-evaluate in am & prn Subjective Date of service: 04/27/19 Principal diagnosis: Septic Shock; Ac. hypoxemic resp failure; Renzo. PNA; Rhabdomyolysis; RUBEN Interval history: Patient is seen today for: Severe sepsis with shock; Acute hypoxemic respiratory failure; Aspiration pneumonia; Morbid obesity; Rhabdomyolysis; Acute kidney injury; Morbid obesity; Elevated serum transaminases/possible shock liver; Acute encephalopathy (Toxic/Met) Seen and examined at bedside; 24hour events reviewed; nursing and respiratory care staff consulted; no adverse overnight events reported to me; resting peacefully in bed; weaning off oxygen; denies acute chest pains; debility is major concern; cardiology w/up ongoing re: arrhythmia's Objective Vital Signs - 12hr 04/27/19 04/27/19 06:00 09:36 Temperature 98.0 F Pulse Rate 75 Respiratory 18 Rate Blood Pressure 129/74 O2 Sat by Pulse 95 95 Oximetry Constitutional: no acute distress, other (middle aged morbidly obese CM, normoce phalic with mildly incresed respiratory effort at rest) Eyes: non-icteric ENT: oropharynx moist, other (extubated) Neck: supple, no lymphadenopathy, no JVD, other (large neck circumference) Effort: mildly labored Ascultation: Bilateral: diminished breath sounds, rhonchi (scant) Percussion: Bilateral: not dull Cardiovascular: regular rate and rhythm, other ( S1,S2) Gastrointestinal: normoactive bowel sounds, soft, non-tender, non-distended, other (obese) Integumentary: normal Extremities: no cyanosis, pink and warm, pulses normal, no ischemia or petechiae Neurologic: normal mental status, non-focal exam (grossly), pupils equal and round, CN II-XII normal, other (very weak) Psychiatric: mood appropriate, affect normal CBC and BMP: 05/05/19 06:14 05/05/19 06:14 ABG, PT/INR, D-dimer: ABG POC ABG pH 7.401 (7.35-7.45) 04/07/19 12:57 ABG pH 7.388 pH Units (7.350-7.450) 04/06/19 05:20 POC ABG pCO2 41.5 (35-45) 04/07/19 12:57 ABG pCO2 38.5 mm Hg 04/06/19 05:20 POC ABG pO2 107 (80-105) H 04/07/19 12:57 ABG pO2 104.0 mm Hg (80.0-90.0) H 04/06/19 05:20 POC ABG HCO3 25.7 (22-26 mml/L) 04/07/19 12:57 POC ABG Total CO2 27 (23-27mmol/L) 04/07/19 12:57 POC ABG O2 Sat 98 04/07/19 12:57 ABG O2 Saturation 97.8 % (95.0-99.0) 04/06/19 05:20 PT/INR, D-dimer PT 15.3 Sec. (12.2-14.9) H 03/29/19 11:48 INR 1.24 (0.87-1.13) H 03/29/19 11:48 D-Dimer 4845.98 ng/mlDDU (0-234) H 03/28/19 12:00 Abnormal lab findings: Abnormal Labs 03/16/19 03/16/19 03/16/19 15:32 16:03 16:05 WBC 27.0 H RBC 5.55 H Hgb 15.7 H Hct 47.1 H MCV MCHC RDW Plt Count 75 L Lymph % (Auto) Sebastian % (Auto) Lymph # Sebastian # Seg Neutrophils % Seg Neuts % (Manual) 85.0 H Lymphocytes % (Manual) 2.0 L Monocytes % (Manual) Nucleated RBC % Seg Neutrophils # Seg Neutrophils # Man 23.0 H Lymphocytes # (Manual) 0.5 L Monocytes # (Manual) PT INR D-Dimer Heparin Anti-Xa Level POC ABG pH ABG pH POC ABG pCO2 POC ABG pO2 ABG pO2 ABG HCO3 ABG O2 Saturation ABG Base Excess ABG Hemoglobin Oxyhemoglobin Sodium 127 L Potassium Chloride 87.8 L Carbon Dioxide 17 L BUN 49 H Creatinine 5.8 H Glucose 150 H POC Glucose 118 H Lactic Acid Calcium 6.6 L Ionized Calcium Phosphorus Magnesium 1.10 L Iron TIBC Ferritin Total Bilirubin Direct Bilirubin AST ALT Alkaline Phosphatase Total Creatine Kinase 04468 H CK-MB (CK-2) Troponin T C-Reactive Protein Serum Total Protein Total Protein Albumin Tnobg-8-Ttvsdwruo Csizj-2-Ramtohtsi PEP Interpretation Triglycerides LDL Cholesterol Direct HDL Cholesterol Free T4 PTH Intact Urine WBC (Auto) Urine Creatinine Salicylates Acetaminophen Crossmatch 03/16/19 03/16/19 03/16/19 16:59 17:05 17:05 WBC RBC Hgb Hct MCV MCHC RDW Plt Count Lymph % (Auto) Sebastian % (Auto) Lymph # Sebastian # Seg Neutrophils % Seg Neuts % (Manual) Lymphocytes % (Manual) Monocytes % (Manual) Nucleated RBC % Seg Neutrophils # Seg Neutrophils # Man Lymphocytes # (Manual) Monocytes # (Manual) PT INR D-Dimer Heparin Anti-Xa Level POC ABG pH 7.297 L ABG pH POC ABG pCO2 33.0 L POC ABG pO2 ABG pO2 ABG HCO3 ABG O2 Saturation ABG Base Excess ABG Hemoglobin Oxyhemoglobin Sodium Potassium Chloride Carbon Dioxide BUN Creatinine Glucose POC Glucose Lactic Acid Calcium Ionized Calcium Phosphorus Magnesium Iron TIBC Ferritin Total Bilirubin Direct Bilirubin AST ALT Alkaline Phosphatase Total Creatine Kinase 34824 H CK-MB (CK-2) 83.1 H Troponin T C-Reactive Protein Serum Total Protein Total Protein Albumin Jzhli-2-Oglpqowrm Qhqgi-8-Ssbmenmmt PEP Interpretation Triglycerides LDL Cholesterol Direct HDL Cholesterol Free T4 0.72 L PTH Intact Urine WBC (Auto) Urine Creatinine Salicylates Acetaminophen Crossmatch 03/16/19 03/16/19 03/16/19 17:05 17:05 17:05 WBC RBC Hgb Hct MCV MCHC RDW Plt Count Lymph % (Auto) Sebastian % (Auto) Lymph # Sebastian # Seg Neutrophils % Seg Neuts % (Manual) Lymphocytes % (Manual) Monocytes % (Manual) Nucleated RBC % Seg Neutrophils # Seg Neutrophils # Man Lymphocytes # (Manual) Monocytes # (Manual) PT INR D-Dimer Heparin Anti-Xa Level POC ABG pH ABG pH POC ABG pCO2 POC ABG pO2 ABG pO2 ABG HCO3 ABG O2 Saturation ABG Base Excess ABG Hemoglobin Oxyhemoglobin Sodium Potassium Chloride Carbon Dioxide BUN Creatinine Glucose POC Glucose Lactic Acid 5.10 H* Calcium Ionized Calcium Phosphorus Magnesium Iron TIBC Ferritin Total Bilirubin Direct Bilirubin AST ALT Alkaline Phosphatase Total Creatine Kinase CK-MB (CK-2) Troponin T C-Reactive Protein Serum Total Protein Total Protein Albumin Vcwfn-6-Yvflosgyc Xqpkc-3-Mhfdeccbk PEP Interpretation Triglycerides LDL Cholesterol Direct HDL Cholesterol Free T4 PTH Intact Urine WBC (Auto) Urine Creatinine Salicylates < 0.3 L Acetaminophen < 5.0 L Crossmatch 03/16/19 03/16/19 03/16/19 17:05 17:05 20:35 WBC RBC Hgb Hct MCV MCHC RDW Plt Count Lymph % (Auto) Sebastian % (Auto) Lymph # Sebastian # Seg Neutrophils % Seg Neuts % (Manual) Lymphocytes % (Manual) Monocytes % (Manual) Nucleated RBC % Seg Neutrophils # Seg Neutrophils # Man Lymphocytes # (Manual) Monocytes # (Manual) PT 15.9 H INR 1.30 H D-Dimer Heparin Anti-Xa Level POC ABG pH ABG pH POC ABG pCO2 POC ABG pO2 ABG pO2 ABG HCO3 ABG O2 Saturation ABG Base Excess ABG Hemoglobin Oxyhemoglobin Sodium Potassium Chloride Carbon Dioxide BUN Creatinine Glucose POC Glucose Lactic Acid 3.30 H* Calcium Ionized Calcium Phosphorus Magnesium Iron TIBC Ferritin Total Bilirubin 6.20 H Direct Bilirubin 5.9 H AST 800 H ALT 120 H Alkaline Phosphatase Total Creatine Kinase CK-MB (CK-2) Troponin T C-Reactive Protein Serum Total Protein Total Protein 4.4 L Albumin 2.4 L Orzil-6-Pidhollfo Qqkky-3-Gzwzrgemv PEP Interpretation Triglycerides LDL Cholesterol Direct HDL Cholesterol Free T4 PTH Intact Urine WBC (Auto) Urine Creatinine Salicylates Acetaminophen Crossmatch 03/16/19 03/16/19 03/16/19 21:45 22:32 Unknown WBC RBC Hgb Hct MCV MCHC RDW Plt Count Lymph % (Auto) Sebastian % (Auto) Lymph # Sebastian # Seg Neutrophils % Seg Neuts % (Manual) Lymphocytes % (Manual) Monocytes % (Manual) Nucleated RBC % Seg Neutrophils # Seg Neutrophils # Man Lymphocytes # (Manual) Monocytes # (Manual) PT INR D-Dimer Heparin Anti-Xa Level POC ABG pH ABG pH POC ABG pCO2 POC ABG pO2 ABG pO2 ABG HCO3 ABG O2 Saturation ABG Base Excess ABG Hemoglobin Oxyhemoglobin Sodium Potassium Chloride Carbon Dioxide BUN Creatinine Glucose POC Glucose Lactic Acid 3.30 H* 3.00 H* Calcium Ionized Calcium Phosphorus Magnesium Iron TIBC Ferritin Total Bilirubin Direct Bilirubin AST ALT Alkaline Phosphatase Total Creatine Kinase CK-MB (CK-2) Troponin T 0.047 H D C-Reactive Protein Serum Total Protein Total Protein Albumin Babuc-2-Mbjtvkqlr Kcyva-0-Gcuinjghz PEP Interpretation Triglycerides 395 H LDL Cholesterol Direct 10 L HDL Cholesterol 7 L Free T4 PTH Intact Urine WBC (Auto) Urine Creatinine Salicylates Acetaminophen Crossmatch 03/17/19 03/17/19 03/17/19 03:45 03:45 03:45 WBC RBC Hgb Hct MCV MCHC RDW Plt Count Lymph % (Auto) Sebastian % (Auto) Lymph # Sebastian # Seg Neutrophils % Seg Neuts % (Manual) Lymphocytes % (Manual) Monocytes % (Manual) Nucleated RBC % Seg Neutrophils # Seg Neutrophils # Man Lymphocytes # (Manual) Monocytes # (Manual) PT INR D-Dimer Heparin Anti-Xa Level POC ABG pH ABG pH POC ABG pCO2 POC ABG pO2 ABG pO2 ABG HCO3 ABG O2 Saturation ABG Base Excess ABG Hemoglobin Oxyhemoglobin Sodium 131 L Potassium Chloride 88.9 L Carbon Dioxide BUN 53 H Creatinine 7.1 H Glucose POC Glucose Lactic Acid 4.10 H* Calcium 5.4 L* D Ionized Calcium Phosphorus 7.30 H Magnesium 1.60 L Iron TIBC Ferritin Total Bilirubin 5.90 H Direct Bilirubin AST 801 H ALT 109 H Alkaline Phosphatase Total Creatine Kinase 87242 H 63245 H CK-MB (CK-2) 41.5 H Troponin T 0.054 H C-Reactive Protein Serum Total Protein Total Protein 4.5 L Albumin 2.0 L Meyus-8-Qikjwojxm Crvxx-0-Dbikjqghs PEP Interpretation Triglycerides LDL Cholesterol Direct HDL Cholesterol Free T4 PTH Intact Urine WBC (Auto) Urine Creatinine Salicylates Acetaminophen Crossmatch 03/17/19 03/17/19 03/17/19 05:47 07:16 07:16 WBC RBC Hgb Hct MCV MCHC RDW Plt Count Lymph % (Auto) Sebastian % (Auto) Lymph # Sebastian # Seg Neutrophils % Seg Neuts % (Manual) Lymphocytes % (Manual) Monocytes % (Manual) Nucleated RBC % Seg Neutrophils # Seg Neutrophils # Man Lymphocytes # (Manual) Monocytes # (Manual) PT INR D-Dimer Heparin Anti-Xa Level POC ABG pH 7.193 L ABG pH POC ABG pCO2 45.2 H POC ABG pO2 65 L ABG pO2 ABG HCO3 ABG O2 Saturation ABG Base Excess ABG Hemoglobin Oxyhemoglobin Sodium Potassium Chloride Carbon Dioxide BUN Creatinine Glucose POC Glucose Lactic Acid 5.50 H* Calcium Ionized Calcium Phosphorus Magnesium Iron TIBC Ferritin Total Bilirubin Direct Bilirubin AST ALT Alkaline Phosphatase Total Creatine Kinase 83581 H CK-MB (CK-2) 54.3 H Troponin T 0.058 H C-Reactive Protein Serum Total Protein Total Protein Albumin Wrjhv-7-Xqkoasbno Ijsff-9-Jxkhwpbsm PEP Interpretation Triglycerides LDL Cholesterol Direct HDL Cholesterol Free T4 PTH Intact Urine WBC (Auto) Urine Creatinine Salicylates Acetaminophen Crossmatch 03/17/19 03/17/19 03/17/19 11:52 12:51 13:01 WBC RBC Hgb Hct MCV MCHC RDW Plt Count Lymph % (Auto) Sebastian % (Auto) Lymph # Sebastian # Seg Neutrophils % Seg Neuts % (Manual) Lymphocytes % (Manual) Monocytes % (Manual) Nucleated RBC % Seg Neutrophils # Seg Neutrophils # Man Lymphocytes # (Manual) Monocytes # (Manual) PT INR D-Dimer Heparin Anti-Xa Level POC ABG pH 7.154 L ABG pH POC ABG pCO2 34.3 L POC ABG pO2 73 L ABG pO2 ABG HCO3 ABG O2 Saturation ABG Base Excess ABG Hemoglobin Oxyhemoglobin Sodium Potassium Chloride Carbon Dioxide BUN Creatinine Glucose POC Glucose 60 L Lactic Acid 8.20 H* Calcium Ionized Calcium Phosphorus Magnesium Iron TIBC Ferritin Total Bilirubin Direct Bilirubin AST ALT Alkaline Phosphatase Total Creatine Kinase CK-MB (CK-2) Troponin T C-Reactive Protein Serum Total Protein Total Protein Albumin Ivhtl-9-Szebzutqo Vejbt-1-Tzxsbxssc PEP Interpretation Triglycerides LDL Cholesterol Direct HDL Cholesterol Free T4 PTH Intact Urine WBC (Auto) Urine Creatinine Salicylates Acetaminophen Crossmatch 03/17/19 03/17/19 03/17/19 14:37 14:37 14:37 WBC 29.3 H RBC Hgb Hct MCV MCHC RDW 15.8 H Plt Count 45 L Lymph % (Auto) Sebastian % (Auto) Lymph # Sebastian # Seg Neutrophils % Seg Neuts % (Manual) 81.0 H Lymphocytes % (Manual) 1.0 L Monocytes % (Manual) 15.0 H Nucleated RBC % Seg Neutrophils # Seg Neutrophils # Man 23.7 H Lymphocytes # (Manual) 0.3 L Monocytes # (Manual) 4.4 H PT INR D-Dimer Heparin Anti-Xa Level POC ABG pH ABG pH POC ABG pCO2 POC ABG pO2 ABG pO2 ABG HCO3 ABG O2 Saturation ABG Base Excess ABG Hemoglobin Oxyhemoglobin Sodium Potassium Chloride Carbon Dioxide BUN Creatinine Glucose POC Glucose Lactic Acid 4.90 H* Calcium Ionized Calcium Phosphorus Magnesium Iron TIBC Ferritin Total Bilirubin Direct Bilirubin AST ALT Alkaline Phosphatase Total Creatine Kinase CK-MB (CK-2) Troponin T C-Reactive Protein 24.90 H Serum Total Protein Total Protein Albumin Kveow-9-Yodcjkijy Jtvfv-6-Efwegccgk PEP Interpretation Triglycerides LDL Cholesterol Direct HDL Cholesterol Free T4 PTH Intact Urine WBC (Auto) Urine Creatinine Salicylates Acetaminophen Crossmatch 03/17/19 03/17/19 03/17/19 16:05 16:05 17:02 WBC RBC Hgb Hct MCV MCHC RDW Plt Count Lymph % (Auto) Sebastian % (Auto) Lymph # Sebastian # Seg Neutrophils % Seg Neuts % (Manual) Lymphocytes % (Manual) Monocytes % (Manual) Nucleated RBC % Seg Neutrophils # Seg Neutrophils # Man Lymphocytes # (Manual) Monocytes # (Manual) PT INR D-Dimer Heparin Anti-Xa Level POC ABG pH 7.183 L ABG pH POC ABG pCO2 POC ABG pO2 65 L ABG pO2 ABG HCO3 ABG O2 Saturation ABG Base Excess ABG Hemoglobin Oxyhemoglobin Sodium Potassium Chloride Carbon Dioxide BUN Creatinine Glucose POC Glucose Lactic Acid Calcium Ionized Calcium Phosphorus Magnesium Iron TIBC Ferritin Total Bilirubin Direct Bilirubin AST ALT Alkaline Phosphatase Total Creatine Kinase CK-MB (CK-2) Troponin T C-Reactive Protein Serum Total Protein Total Protein Albumin Civqo-7-Rvmwgyozm Xpayk-0-Nondvusha PEP Interpretation Triglycerides LDL Cholesterol Direct HDL Cholesterol Free T4 PTH Intact Urine WBC (Auto) 30.0 H Urine Creatinine 106.6 H Salicylates Acetaminophen Crossmatch 03/18/19 03/18/19 03/18/19 05:12 05:16 05:53 WBC RBC Hgb Hct MCV MCHC RDW Plt Count Lymph % (Auto) Sebastian % (Auto) Lymph # Sebastian # Seg Neutrophils % Seg Neuts % (Manual) Lymphocytes % (Manual) Monocytes % (Manual) Nucleated RBC % Seg Neutrophils # Seg Neutrophils # Man Lymphocytes # (Manual) Monocytes # (Manual) PT INR D-Dimer Heparin Anti-Xa Level POC ABG pH 7.257 L ABG pH POC ABG pCO2 31.6 L POC ABG pO2 69 L ABG pO2 ABG HCO3 ABG O2 Saturation ABG Base Excess ABG Hemoglobin Oxyhemoglobin Sodium Potassium Chloride Carbon Dioxide BUN Creatinine Glucose POC Glucose 141 H Lactic Acid 5.00 H* Calcium Ionized Calcium Phosphorus Magnesium Iron TIBC Ferritin Total Bilirubin Direct Bilirubin AST ALT Alkaline Phosphatase Total Creatine Kinase CK-MB (CK-2) Troponin T C-Reactive Protein Serum Total Protein Total Protein Albumin Lqwig-9-Cfdiqlyms Bpxxy-5-Hbziquhha PEP Interpretation Triglycerides LDL Cholesterol Direct HDL Cholesterol Free T4 PTH Intact Urine WBC (Auto) Urine Creatinine Salicylates Acetaminophen Crossmatch 03/18/19 03/18/19 03/18/19 06:57 08:40 08:40 WBC 31.7 H RBC Hgb Hct MCV MCHC RDW 15.5 H Plt Count 35 L Lymph % (Auto) Sebastian % (Auto) Lymph # Sebastian # Seg Neutrophils % Seg Neuts % (Manual) Lymphocytes % (Manual) Monocytes % (Manual) Nucleated RBC % Seg Neutrophils # Seg Neutrophils # Man Lymphocytes # (Manual) Monocytes # (Manual) PT INR D-Dimer Heparin Anti-Xa Level POC ABG pH ABG pH POC ABG pCO2 POC ABG pO2 ABG pO2 ABG HCO3 ABG O2 Saturation ABG Base Excess ABG Hemoglobin Oxyhemoglobin Sodium 132 L Potassium 5.5 H D Chloride 88.5 L Carbon Dioxide 18 L BUN 71 H Creatinine 8.1 H Glucose 205 H POC Glucose Lactic Acid 5.00 H* Calcium 4.1 L* D Ionized Calcium Phosphorus Magnesium 2.40 H Iron TIBC Ferritin Total Bilirubin 7.50 H Direct Bilirubin AST 1088 H ALT 159 H Alkaline Phosphatase 190 H Total Creatine Kinase 560214 H CK-MB (CK-2) Troponin T C-Reactive Protein Serum Total Protein Total Protein 4.7 L Albumin 1.8 L Alaed-8-Vdruccozs Zpstn-5-Hgmquyiby PEP Interpretation Triglycerides LDL Cholesterol Direct HDL Cholesterol Free T4 PTH Intact Urine WBC (Auto) Urine Creatinine Salicylates Acetaminophen Crossmatch 03/18/19 03/18/19 03/18/19 12:33 12:50 13:19 WBC RBC Hgb Hct MCV MCHC RDW Plt Count Lymph % (Auto) Sebastian % (Auto) Lymph # Sebastian # Seg Neutrophils % Seg Neuts % (Manual) Lymphocytes % (Manual) Monocytes % (Manual) Nucleated RBC % Seg Neutrophils # Seg Neutrophils # Man Lymphocytes # (Manual) Monocytes # (Manual) PT INR D-Dimer Heparin Anti-Xa Level POC ABG pH 7.282 L ABG pH POC ABG pCO2 POC ABG pO2 67 L ABG pO2 ABG HCO3 ABG O2 Saturation ABG Base Excess ABG Hemoglobin Oxyhemoglobin Sodium Potassium Chloride Carbon Dioxide BUN Creatinine Glucose POC Glucose 129 H Lactic Acid 3.30 H* Calcium Ionized Calcium Phosphorus Magnesium Iron TIBC Ferritin Total Bilirubin Direct Bilirubin AST ALT Alkaline Phosphatase Total Creatine Kinase CK-MB (CK-2) Troponin T C-Reactive Protein Serum Total Protein Total Protein Albumin Xcgbq-6-Lvuzlpmky Qctuw-2-Snyoociky PEP Interpretation Triglycerides LDL Cholesterol Direct HDL Cholesterol Free T4 PTH Intact Urine WBC (Auto) Urine Creatinine Salicylates Acetaminophen Crossmatch 03/18/19 03/18/19 03/18/19 13:19 16:50 18:11 WBC RBC Hgb Hct MCV MCHC RDW Plt Count Lymph % (Auto) Sebastian % (Auto) Lymph # Sebastian # Seg Neutrophils % Seg Neuts % (Manual) Lymphocytes % (Manual) Monocytes % (Manual) Nucleated RBC % Seg Neutrophils # Seg Neutrophils # Man Lymphocytes # (Manual) Monocytes # (Manual) PT INR D-Dimer Heparin Anti-Xa Level POC ABG pH ABG pH POC ABG pCO2 POC ABG pO2 59 L ABG pO2 ABG HCO3 ABG O2 Saturation ABG Base Excess ABG Hemoglobin Oxyhemoglobin Sodium Potassium Chloride Carbon Dioxide BUN Creatinine Glucose POC Glucose 151 H Lactic Acid Calcium 4.2 L* Ionized Calcium Phosphorus Magnesium Iron TIBC Ferritin Total Bilirubin Direct Bilirubin AST ALT Alkaline Phosphatase Total Creatine Kinase 028237 H CK-MB (CK-2) Troponin T C-Reactive Protein Serum Total Protein Total Protein Albumin Ofmdz-7-Wwqjdyrsn Akisf-8-Akxzrifwd PEP Interpretation Triglycerides LDL Cholesterol Direct HDL Cholesterol Free T4 PTH Intact Urine WBC (Auto) Urine Creatinine Salicylates Acetaminophen Crossmatch 03/18/19 03/18/19 03/19/19 18:20 23:39 01:42 WBC RBC Hgb Hct MCV MCHC RDW Plt Count Lymph % (Auto) Sebastian % (Auto) Lymph # Sebastian # Seg Neutrophils % Seg Neuts % (Manual) Lymphocytes % (Manual) Monocytes % (Manual) Nucleated RBC % Seg Neutrophils # Seg Neutrophils # Man Lymphocytes # (Manual) Monocytes # (Manual) PT INR D-Dimer Heparin Anti-Xa Level POC ABG pH 7.345 L ABG pH 7.285 L POC ABG pCO2 POC ABG pO2 59 L ABG pO2 44.0 L ABG HCO3 ABG O2 Saturation 70.9 L ABG Base Excess -5.7 L ABG Hemoglobin 11.9 L Oxyhemoglobin 69.6 L Sodium Potassium Chloride Carbon Dioxide BUN Creatinine Glucose POC Glucose 152 H Lactic Acid Calcium Ionized Calcium Phosphorus Magnesium Iron TIBC Ferritin Total Bilirubin Direct Bilirubin AST ALT Alkaline Phosphatase Total Creatine Kinase CK-MB (CK-2) Troponin T C-Reactive Protein Serum Total Protein Total Protein Albumin Zzmtb-1-Fpitdstoy Efsne-9-Mzxtqtnfm PEP Interpretation Triglycerides LDL Cholesterol Direct HDL Cholesterol Free T4 PTH Intact Urine WBC (Auto) Urine Creatinine Salicylates Acetaminophen Crossmatch 03/19/19 03/19/19 03/19/19 04:00 04:00 05:35 WBC 36.5 H RBC Hgb Hct MCV MCHC RDW 15.8 H Plt Count 35 L Lymph % (Auto) Sebastian % (Auto) Lymph # Sebastian # Seg Neutrophils % Seg Neuts % (Manual) Lymphocytes % (Manual) Monocytes % (Manual) Nucleated RBC % Seg Neutrophils # Seg Neutrophils # Man Lymphocytes # (Manual) Monocytes # (Manual) PT INR D-Dimer Heparin Anti-Xa Level POC ABG pH ABG pH 7.265 L POC ABG pCO2 POC ABG pO2 ABG pO2 35.4 L* ABG HCO3 ABG O2 Saturation 54.4 L ABG Base Excess -6.7 L ABG Hemoglobin 12.9 L Oxyhemoglobin 53.4 L Sodium 132 L Potassium 5.7 H Chloride 89.8 L Carbon Dioxide 19 L BUN 62 H Creatinine 6.4 H Glucose 151 H POC Glucose Lactic Acid Calcium 5.2 L* D Ionized Calcium Phosphorus Magnesium Iron TIBC Ferritin Total Bilirubin 7.80 H Direct Bilirubin AST 682 H ALT 130 H Alkaline Phosphatase 167 H Total Creatine Kinase CK-MB (CK-2) Troponin T C-Reactive Protein Serum Total Protein Total Protein 4.8 L Albumin 2.3 L Cqpqb-0-Pustmohno Vtzwb-4-Flbvtatne PEP Interpretation Triglycerides LDL Cholesterol Direct HDL Cholesterol Free T4 PTH Intact Urine WBC (Auto) Urine Creatinine Salicylates Acetaminophen Crossmatch 03/19/19 03/19/19 03/19/19 05:49 09:16 09:50 WBC RBC Hgb Hct MCV MCHC RDW Plt Count Lymph % (Auto) Sebastian % (Auto) Lymph # Sebastian # Seg Neutrophils % Seg Neuts % (Manual) Lymphocytes % (Manual) Monocytes % (Manual) Nucleated RBC % Seg Neutrophils # Seg Neutrophils # Man Lymphocytes # (Manual) Monocytes # (Manual) PT INR D-Dimer Heparin Anti-Xa Level POC ABG pH 7.222 L ABG pH POC ABG pCO2 56.6 H POC ABG pO2 ABG pO2 ABG HCO3 ABG O2 Saturation ABG Base Excess ABG Hemoglobin Oxyhemoglobin Sodium Potassium Chloride Carbon Dioxide BUN Creatinine Glucose POC Glucose 154 H Lactic Acid 2.70 H* Calcium Ionized Calcium Phosphorus Magnesium Iron TIBC Ferritin Total Bilirubin Direct Bilirubin AST ALT Alkaline Phosphatase Total Creatine Kinase CK-MB (CK-2) Troponin T C-Reactive Protein Serum Total Protein Total Protein Albumin Ksgsw-3-Aaxoxprwz Sdoqv-7-Tqiwvggvc PEP Interpretation Triglycerides LDL Cholesterol Direct HDL Cholesterol Free T4 PTH Intact Urine WBC (Auto) Urine Creatinine Salicylates Acetaminophen Crossmatch 03/19/19 03/19/19 03/19/19 09:50 11:28 17:58 WBC RBC Hgb Hct MCV MCHC RDW Plt Count Lymph % (Auto) Sebastian % (Auto) Lymph # Sebastian # Seg Neutrophils % Seg Neuts % (Manual) Lymphocytes % (Manual) Monocytes % (Manual) Nucleated RBC % Seg Neutrophils # Seg Neutrophils # Man Lymphocytes # (Manual) Monocytes # (Manual) PT INR D-Dimer Heparin Anti-Xa Level POC ABG pH 7.250 L ABG pH POC ABG pCO2 52.6 H POC ABG pO2 ABG pO2 ABG HCO3 ABG O2 Saturation ABG Base Excess ABG Hemoglobin Oxyhemoglobin Sodium Potassium Chloride Carbon Dioxide BUN Creatinine Glucose POC Glucose 160 H Lactic Acid Calcium Ionized Calcium Phosphorus Magnesium Iron TIBC Ferritin Total Bilirubin Direct Bilirubin AST ALT Alkaline Phosphatase Total Creatine Kinase 89807 H CK-MB (CK-2) Troponin T C-Reactive Protein Serum Total Protein Total Protein Albumin Mqwmv-9-Uwsqpfudz Mrstl-9-Eqowhwhcr PEP Interpretation Triglycerides LDL Cholesterol Direct HDL Cholesterol Free T4 PTH Intact Urine WBC (Auto) Urine Creatinine Salicylates Acetaminophen Crossmatch 03/19/19 03/19/19 03/20/19 19:48 21:03 02:16 WBC RBC Hgb Hct MCV MCHC RDW Plt Count Lymph % (Auto) Sebastian % (Auto) Lymph # Sebastian # Seg Neutrophils % Seg Neuts % (Manual) Lymphocytes % (Manual) Monocytes % (Manual) Nucleated RBC % Seg Neutrophils # Seg Neutrophils # Man Lymphocytes # (Manual) Monocytes # (Manual) PT INR D-Dimer Heparin Anti-Xa Level POC ABG pH 7.279 L ABG pH POC ABG pCO2 50.3 H POC ABG pO2 129 H ABG pO2 ABG HCO3 ABG O2 Saturation ABG Base Excess ABG Hemoglobin Oxyhemoglobin Sodium Potassium Chloride Carbon Dioxide BUN Creatinine Glucose POC Glucose 119 H 119 H Lactic Acid Calcium Ionized Calcium Phosphorus Magnesium Iron TIBC Ferritin Total Bilirubin Direct Bilirubin AST ALT Alkaline Phosphatase Total Creatine Kinase CK-MB (CK-2) Troponin T C-Reactive Protein Serum Total Protein Total Protein Albumin Velef-5-Ubsfdmpfv Qdzau-6-Cclgdavqs PEP Interpretation Triglycerides LDL Cholesterol Direct HDL Cholesterol Free T4 PTH Intact Urine WBC (Auto) Urine Creatinine Salicylates Acetaminophen Crossmatch 03/20/19 03/20/19 03/20/19 04:23 05:05 09:30 WBC 36.3 H RBC Hgb Hct MCV MCHC RDW 15.5 H Plt Count 29 L Lymph % (Auto) Sebastian % (Auto) Lymph # Sebastian # Seg Neutrophils % Seg Neuts % (Manual) Lymphocytes % (Manual) Monocytes % (Manual) Nucleated RBC % Seg Neutrophils # Seg Neutrophils # Man Lymphocytes # (Manual) Monocytes # (Manual) PT INR D-Dimer Heparin Anti-Xa Level POC ABG pH ABG pH POC ABG pCO2 POC ABG pO2 280 H ABG pO2 ABG HCO3 ABG O2 Saturation ABG Base Excess ABG Hemoglobin Oxyhemoglobin Sodium Potassium Chloride Carbon Dioxide BUN Creatinine Glucose POC Glucose 115 H Lactic Acid Calcium Ionized Calcium Phosphorus Magnesium Iron TIBC Ferritin Total Bilirubin Direct Bilirubin AST ALT Alkaline Phosphatase Total Creatine Kinase CK-MB (CK-2) Troponin T C-Reactive Protein Serum Total Protein Total Protein Albumin Ppktd-8-Uwbbdfrzo Vvoqc-0-Lahvyttlc PEP Interpretation Triglycerides LDL Cholesterol Direct HDL Cholesterol Free T4 PTH Intact Urine WBC (Auto) Urine Creatinine Salicylates Acetaminophen Crossmatch 03/20/19 03/20/19 03/20/19 09:30 09:30 11:34 WBC RBC Hgb Hct MCV MCHC RDW Plt Count Lymph % (Auto) Sebastian % (Auto) Lymph # Sebastian # Seg Neutrophils % Seg Neuts % (Manual) Lymphocytes % (Manual) Monocytes % (Manual) Nucleated RBC % Seg Neutrophils # Seg Neutrophils # Man Lymphocytes # (Manual) Monocytes # (Manual) PT INR D-Dimer Heparin Anti-Xa Level POC ABG pH ABG pH POC ABG pCO2 POC ABG pO2 ABG pO2 ABG HCO3 ABG O2 Saturation ABG Base Excess ABG Hemoglobin Oxyhemoglobin Sodium 131 L Potassium Chloride 92.3 L Carbon Dioxide 20 L BUN 68 H Creatinine 6.1 H Glucose 164 H POC Glucose 141 H Lactic Acid Calcium 5.3 L* Ionized Calcium Phosphorus Magnesium Iron TIBC Ferritin Total Bilirubin 9.50 H Direct Bilirubin AST 381 H ALT 116 H Alkaline Phosphatase 255 H Total Creatine Kinase 73266 H CK-MB (CK-2) Troponin T C-Reactive Protein Serum Total Protein Total Protein 5.1 L Albumin 2.3 L Ekfdf-3-Lhwmpasxg Qpoww-8-Uwehkqdyy PEP Interpretation Triglycerides LDL Cholesterol Direct HDL Cholesterol Free T4 PTH Intact Urine WBC (Auto) Urine Creatinine Salicylates Acetaminophen Crossmatch 03/20/19 03/20/19 03/20/19 14:41 14:45 18:50 WBC RBC Hgb Hct MCV MCHC RDW Plt Count Lymph % (Auto) Sebastian % (Auto) Lymph # Sebastian # Seg Neutrophils % Seg Neuts % (Manual) Lymphocytes % (Manual) Monocytes % (Manual) Nucleated RBC % Seg Neutrophils # Seg Neutrophils # Man Lymphocytes # (Manual) Monocytes # (Manual) PT INR D-Dimer Heparin Anti-Xa Level POC ABG pH ABG pH POC ABG pCO2 POC ABG pO2 ABG pO2 ABG HCO3 ABG O2 Saturation ABG Base Excess ABG Hemoglobin Oxyhemoglobin Sodium Potassium Chloride Carbon Dioxide BUN Creatinine Glucose POC Glucose 117 H Lactic Acid 2.90 H* Calcium Ionized Calcium Phosphorus Magnesium Iron TIBC Ferritin Total Bilirubin Direct Bilirubin AST ALT Alkaline Phosphatase Total Creatine Kinase CK-MB (CK-2) Troponin T C-Reactive Protein 13.30 H Serum Total Protein Total Protein Albumin Nvlke-8-Bvwzuuacl Vxqgo-0-Jrqixgzau PEP Interpretation Triglycerides LDL Cholesterol Direct HDL Cholesterol Free T4 PTH Intact Urine WBC (Auto) Urine Creatinine Salicylates Acetaminophen Crossmatch 03/20/19 03/21/19 03/21/19 21:55 04:26 04:26 WBC 37.8 H RBC Hgb Hct MCV MCHC RDW 15.4 H Plt Count 36 L Lymph % (Auto) Sebastian % (Auto) Lymph # Sebastian # Seg Neutrophils % Seg Neuts % (Manual) 93.0 H Lymphocytes % (Manual) 3.0 L Monocytes % (Manual) Nucleated RBC % 1.0 H Seg Neutrophils # 34.6 H Seg Neutrophils # Man 35.2 H Lymphocytes # (Manual) 1.1 L Monocytes # (Manual) PT INR D-Dimer Heparin Anti-Xa Level POC ABG pH ABG pH POC ABG pCO2 POC ABG pO2 ABG pO2 ABG HCO3 ABG O2 Saturation ABG Base Excess ABG Hemoglobin Oxyhemoglobin Sodium 131 L Potassium Chloride 90.7 L Carbon Dioxide 21 L BUN 69 H Creatinine 5.7 H Glucose 170 H POC Glucose 128 H Lactic Acid Calcium 6.1 L D Ionized Calcium Phosphorus Magnesium Iron TIBC Ferritin Total Bilirubin 9.50 H Direct Bilirubin AST 308 H ALT 124 H Alkaline Phosphatase 327 H Total Creatine Kinase 70059 H CK-MB (CK-2) Troponin T C-Reactive Protein Serum Total Protein Total Protein 5.7 L Albumin 2.6 L Fnqqd-5-Cfzknetei Mbnyi-4-Ehteseyvc PEP Interpretation Triglycerides LDL Cholesterol Direct HDL Cholesterol Free T4 PTH Intact Urine WBC (Auto) Urine Creatinine Salicylates Acetaminophen Crossmatch 03/21/19 03/21/19 03/21/19 05:17 05:39 08:29 WBC RBC Hgb Hct MCV MCHC RDW Plt Count Lymph % (Auto) Sebastian % (Auto) Lymph # Sebastian # Seg Neutrophils % Seg Neuts % (Manual) Lymphocytes % (Manual) Monocytes % (Manual) Nucleated RBC % Seg Neutrophils # Seg Neutrophils # Man Lymphocytes # (Manual) Monocytes # (Manual) PT INR D-Dimer Heparin Anti-Xa Level POC ABG pH ABG pH POC ABG pCO2 POC ABG pO2 209 H ABG pO2 ABG HCO3 ABG O2 Saturation ABG Base Excess ABG Hemoglobin Oxyhemoglobin Sodium Potassium Chloride Carbon Dioxide BUN Creatinine Glucose POC Glucose 145 H Lactic Acid Calcium Ionized Calcium Phosphorus Magnesium Iron TIBC Ferritin Total Bilirubin Direct Bilirubin AST ALT Alkaline Phosphatase Total Creatine Kinase 14526 H CK-MB (CK-2) Troponin T C-Reactive Protein Serum Total Protein Total Protein Albumin Lipfh-0-Tiezaknan Ptkoc-5-Mejqvirax PEP Interpretation Triglycerides LDL Cholesterol Direct HDL Cholesterol Free T4 PTH Intact Urine WBC (Auto) Urine Creatinine Salicylates Acetaminophen Crossmatch 03/21/19 03/21/19 03/21/19 08:29 11:43 12:00 WBC RBC Hgb Hct MCV MCHC RDW Plt Count Lymph % (Auto) Sebastian % (Auto) Lymph # Sebastian # Seg Neutrophils % Seg Neuts % (Manual) Lymphocytes % (Manual) Monocytes % (Manual) Nucleated RBC % Seg Neutrophils # Seg Neutrophils # Man Lymphocytes # (Manual) Monocytes # (Manual) PT INR D-Dimer Heparin Anti-Xa Level POC ABG pH ABG pH POC ABG pCO2 POC ABG pO2 ABG pO2 ABG HCO3 ABG O2 Saturation ABG Base Excess ABG Hemoglobin Oxyhemoglobin Sodium Potassium Chloride Carbon Dioxide BUN Creatinine Glucose POC Glucose 123 H Lactic Acid 2.60 H* 2.20 H* Calcium Ionized Calcium Phosphorus Magnesium Iron TIBC Ferritin Total Bilirubin Direct Bilirubin AST ALT Alkaline Phosphatase Total Creatine Kinase CK-MB (CK-2) Troponin T C-Reactive Protein Serum Total Protein Total Protein Albumin Nxhpc-5-Vcuwmqvdj Olptn-6-Zfeizlmly PEP Interpretation Triglycerides LDL Cholesterol Direct HDL Cholesterol Free T4 PTH Intact Urine WBC (Auto) Urine Creatinine Salicylates Acetaminophen Crossmatch 03/21/19 03/21/19 03/21/19 14:11 18:28 19:32 WBC RBC Hgb Hct MCV MCHC RDW Plt Count Lymph % (Auto) Sebastian % (Auto) Lymph # Sebastian # Seg Neutrophils % Seg Neuts % (Manual) Lymphocytes % (Manual) Monocytes % (Manual) Nucleated RBC % Seg Neutrophils # Seg Neutrophils # Man Lymphocytes # (Manual) Monocytes # (Manual) PT INR D-Dimer Heparin Anti-Xa Level POC ABG pH 7.293 L ABG pH POC ABG pCO2 POC ABG pO2 ABG pO2 ABG HCO3 ABG O2 Saturation ABG Base Excess ABG Hemoglobin Oxyhemoglobin Sodium Potassium Chloride Carbon Dioxide BUN Creatinine Glucose POC Glucose 153 H Lactic Acid 2.10 H* Calcium Ionized Calcium Phosphorus Magnesium Iron TIBC Ferritin Total Bilirubin Direct Bilirubin AST ALT Alkaline Phosphatase Total Creatine Kinase CK-MB (CK-2) Troponin T C-Reactive Protein Serum Total Protein Total Protein Albumin Sgmrl-5-Docvxdwpv Nalwk-1-Kthmhuowk PEP Interpretation Triglycerides LDL Cholesterol Direct HDL Cholesterol Free T4 PTH Intact Urine WBC (Auto) Urine Creatinine Salicylates Acetaminophen Crossmatch 03/21/19 03/22/19 03/22/19 23:38 05:08 05:51 WBC RBC Hgb Hct MCV MCHC RDW Plt Count Lymph % (Auto) Sebastian % (Auto) Lymph # Sebastian # Seg Neutrophils % Seg Neuts % (Manual) Lymphocytes % (Manual) Monocytes % (Manual) Nucleated RBC % Seg Neutrophils # Seg Neutrophils # Man Lymphocytes # (Manual) Monocytes # (Manual) PT INR D-Dimer Heparin Anti-Xa Level POC ABG pH 7.283 L ABG pH POC ABG pCO2 POC ABG pO2 53 L ABG pO2 ABG HCO3 ABG O2 Saturation ABG Base Excess ABG Hemoglobin Oxyhemoglobin Sodium Potassium Chloride Carbon Dioxide BUN Creatinine Glucose POC Glucose 149 H 131 H Lactic Acid Calcium Ionized Calcium Phosphorus Magnesium Iron TIBC Ferritin Total Bilirubin Direct Bilirubin AST ALT Alkaline Phosphatase Total Creatine Kinase CK-MB (CK-2) Troponin T C-Reactive Protein Serum Total Protein Total Protein Albumin Ogats-0-Hlnvrtsnv Lukla-7-Pttdikxic PEP Interpretation Triglycerides LDL Cholesterol Direct HDL Cholesterol Free T4 PTH Intact Urine WBC (Auto) Urine Creatinine Salicylates Acetaminophen Crossmatch 03/22/19 03/22/19 03/22/19 08:00 08:00 18:19 WBC 36.7 H RBC Hgb 11.0 L Hct 33.5 L MCV MCHC RDW 15.5 H Plt Count 43 L Lymph % (Auto) Sebastian % (Auto) Lymph # Sebastian # Seg Neutrophils % Seg Neuts % (Manual) 87.0 H Lymphocytes % (Manual) 7.0 L Monocytes % (Manual) Nucleated RBC % Seg Neutrophils # Seg Neutrophils # Man 31.9 H Lymphocytes # (Manual) Monocytes # (Manual) PT INR D-Dimer Heparin Anti-Xa Level POC ABG pH ABG pH POC ABG pCO2 46.4 H POC ABG pO2 108 H ABG pO2 ABG HCO3 ABG O2 Saturation ABG Base Excess ABG Hemoglobin Oxyhemoglobin Sodium 132 L Potassium 5.6 H Chloride 89.6 L Carbon Dioxide 20 L BUN 101 H Creatinine 7.4 H Glucose 124 H POC Glucose Lactic Acid Calcium 5.2 L* Ionized Calcium Phosphorus Magnesium Iron TIBC Ferritin Total Bilirubin 2.80 H Direct Bilirubin AST 119 H ALT 86 H Alkaline Phosphatase 245 H Total Creatine Kinase CK-MB (CK-2) Troponin T C-Reactive Protein Serum Total Protein Total Protein 5.6 L Albumin 2.5 L Zqzop-2-Tzipttvbq Rcgjo-5-Hbjhnyegb PEP Interpretation Triglycerides LDL Cholesterol Direct HDL Cholesterol Free T4 PTH Intact Urine WBC (Auto) Urine Creatinine Salicylates Acetaminophen Crossmatch 03/22/19 03/23/19 03/23/19 20:37 04:49 05:28 WBC 35.9 H RBC Hgb 10.8 L Hct 33.2 L MCV MCHC RDW 15.5 H Plt Count 49 L Lymph % (Auto) Sebastian % (Auto) Lymph # Sebastian # Seg Neutrophils % Seg Neuts % (Manual) 81.0 H Lymphocytes % (Manual) 3.5 L Monocytes % (Manual) Nucleated RBC % Seg Neutrophils # Seg Neutrophils # Man 29.1 H Lymphocytes # (Manual) Monocytes # (Manual) 1.4 H PT INR D-Dimer Heparin Anti-Xa Level POC ABG pH 7.296 L ABG pH POC ABG pCO2 46.2 H POC ABG pO2 ABG pO2 ABG HCO3 ABG O2 Saturation ABG Base Excess ABG Hemoglobin Oxyhemoglobin Sodium 129 L Potassium 5.2 H Chloride 91.1 L Carbon Dioxide BUN 91 H Creatinine 6.6 H Glucose 190 H POC Glucose Lactic Acid Calcium 5.3 L* Ionized Calcium Phosphorus Magnesium Iron TIBC Ferritin Total Bilirubin 1.80 H Direct Bilirubin AST 80 H ALT 62 H Alkaline Phosphatase 209 H Total Creatine Kinase 9758 H CK-MB (CK-2) Troponin T C-Reactive Protein Serum Total Protein Total Protein 5.2 L Albumin 2.2 L Tqtmz-8-Fdhlvztnw Sxlfg-6-Umkuawzwi PEP Interpretation Triglycerides LDL Cholesterol Direct HDL Cholesterol Free T4 PTH Intact Urine WBC (Auto) Urine Creatinine Salicylates Acetaminophen Crossmatch 03/23/19 03/23/19 03/23/19 05:28 05:31 11:33 WBC 29.7 H RBC 3.59 L Hgb 10.1 L Hct 31.1 L MCV MCHC RDW 15.4 H Plt Count 47 L Lymph % (Auto) Sebastian % (Auto) Lymph # Sebastian # Seg Neutrophils % Seg Neuts % (Manual) 89.0 H Lymphocytes % (Manual) 6.0 L Monocytes % (Manual) Nucleated RBC % 1.0 H Seg Neutrophils # Seg Neutrophils # Man 26.4 H Lymphocytes # (Manual) Monocytes # (Manual) PT INR D-Dimer Heparin Anti-Xa Level POC ABG pH ABG pH POC ABG pCO2 POC ABG pO2 ABG pO2 ABG HCO3 ABG O2 Saturation ABG Base Excess ABG Hemoglobin Oxyhemoglobin Sodium Potassium Chloride Carbon Dioxide BUN Creatinine Glucose POC Glucose 122 H 113 H Lactic Acid Calcium Ionized Calcium Phosphorus Magnesium Iron TIBC Ferritin Total Bilirubin Direct Bilirubin AST ALT Alkaline Phosphatase Total Creatine Kinase CK-MB (CK-2) Troponin T C-Reactive Protein Serum Total Protein Total Protein Albumin Miqhq-3-Uzjfdvoqh Fhpki-6-Sbmnkfakw PEP Interpretation Triglycerides LDL Cholesterol Direct HDL Cholesterol Free T4 PTH Intact Urine WBC (Auto) Urine Creatinine Salicylates Acetaminophen Crossmatch 03/23/19 03/24/19 03/24/19 17:47 00:00 04:50 WBC 35.0 H RBC Hgb 10.4 L Hct 32.4 L MCV MCHC RDW Plt Count 60 L Lymph % (Auto) Sebastian % (Auto) Lymph # Sebastian # Seg Neutrophils % Seg Neuts % (Manual) 93.0 H Lymphocytes % (Manual) 5.0 L Monocytes % (Manual) Nucleated RBC % 7.0 H Seg Neutrophils # Seg Neutrophils # Man 32.6 H Lymphocytes # (Manual) Monocytes # (Manual) PT INR D-Dimer Heparin Anti-Xa Level POC ABG pH ABG pH POC ABG pCO2 POC ABG pO2 ABG pO2 ABG HCO3 ABG O2 Saturation ABG Base Excess ABG Hemoglobin Oxyhemoglobin Sodium Potassium Chloride Carbon Dioxide BUN Creatinine Glucose POC Glucose 111 H 108 H Lactic Acid Calcium Ionized Calcium Phosphorus Magnesium Iron TIBC Ferritin Total Bilirubin Direct Bilirubin AST ALT Alkaline Phosphatase Total Creatine Kinase CK-MB (CK-2) Troponin T C-Reactive Protein Serum Total Protein Total Protein Albumin Wnfqu-6-Ojkeopdxy Dxyve-9-Cpujduwiq PEP Interpretation Triglycerides LDL Cholesterol Direct HDL Cholesterol Free T4 PTH Intact Urine WBC (Auto) Urine Creatinine Salicylates Acetaminophen Crossmatch 03/24/19 03/24/19 03/24/19 04:50 05:06 12:55 WBC RBC Hgb Hct MCV MCHC RDW Plt Count Lymph % (Auto) Sebastian % (Auto) Lymph # Sebastian # Seg Neutrophils % Seg Neuts % (Manual) Lymphocytes % (Manual) Monocytes % (Manual) Nucleated RBC % Seg Neutrophils # Seg Neutrophils # Man Lymphocytes # (Manual) Monocytes # (Manual) PT INR D-Dimer Heparin Anti-Xa Level POC ABG pH ABG pH POC ABG pCO2 POC ABG pO2 ABG pO2 ABG HCO3 ABG O2 Saturation ABG Base Excess ABG Hemoglobin Oxyhemoglobin Sodium 134 L Potassium 5.1 H Chloride 95.3 L Carbon Dioxide 21 L BUN 85 H Creatinine 6.4 H Glucose 109 H POC Glucose 112 H 110 H Lactic Acid Calcium 5.8 L* Ionized Calcium Phosphorus Magnesium Iron TIBC Ferritin Total Bilirubin Direct Bilirubin AST ALT Alkaline Phosphatase Total Creatine Kinase 5747 H CK-MB (CK-2) Troponin T C-Reactive Protein Serum Total Protein Total Protein Albumin Dhkzm-6-Tlolrvbhz Aqoqw-0-Ustrnvmte PEP Interpretation Triglycerides LDL Cholesterol Direct HDL Cholesterol Free T4 PTH Intact Urine WBC (Auto) Urine Creatinine Salicylates Acetaminophen Crossmatch 03/24/19 03/25/19 03/25/19 23:29 05:00 05:00 WBC RBC Hgb Hct MCV MCHC RDW Plt Count Lymph % (Auto) Sebastian % (Auto) Lymph # Sebastian # Seg Neutrophils % Seg Neuts % (Manual) Lymphocytes % (Manual) Monocytes % (Manual) Nucleated RBC % Seg Neutrophils # Seg Neutrophils # Man Lymphocytes # (Manual) Monocytes # (Manual) PT INR D-Dimer Heparin Anti-Xa Level POC ABG pH ABG pH POC ABG pCO2 POC ABG pO2 ABG pO2 ABG HCO3 ABG O2 Saturation ABG Base Excess ABG Hemoglobin Oxyhemoglobin Sodium 133 L Potassium Chloride 94.0 L Carbon Dioxide 21 L BUN 81 H Creatinine 6.4 H Glucose POC Glucose 109 H Lactic Acid Calcium 5.5 L* Ionized Calcium Phosphorus Magnesium Iron TIBC Ferritin Total Bilirubin Direct Bilirubin AST 80 H ALT Alkaline Phosphatase 202 H Total Creatine Kinase 3589 H CK-MB (CK-2) Troponin T C-Reactive Protein Serum Total Protein Total Protein 5.3 L Albumin 2.4 L Bfugz-2-Onpgxclsl Dhnbr-9-Wnynotxkp PEP Interpretation Triglycerides LDL Cholesterol Direct HDL Cholesterol Free T4 PTH Intact 329.9 H Urine WBC (Auto) Urine Creatinine Salicylates Acetaminophen Crossmatch 03/25/19 03/25/1919 05:00 06:30 04:30 WBC 23.3 H RBC 3.61 L Hgb 10.2 L Hct 31.2 L MCV MCHC RDW Plt Count 57 L Lymph % (Auto) Sebastian % (Auto) Lymph # Sebastian # Seg Neutrophils % Seg Neuts % (Manual) 92.0 H Lymphocytes % (Manual) 6.0 L Monocytes % (Manual) Nucleated RBC % Seg Neutrophils # Seg Neutrophils # Man 21.4 H Lymphocytes # (Manual) Monocytes # (Manual) PT INR D-Dimer Heparin Anti-Xa Level POC ABG pH ABG pH 7.326 L POC ABG pCO2 POC ABG pO2 ABG pO2 109.5 H 137.4 H ABG HCO3 18.8 L 18.6 L ABG O2 Saturation ABG Base Excess -4.4 L -6.8 L ABG Hemoglobin 10.1 L 9.9 L Oxyhemoglobin Sodium Potassium Chloride Carbon Dioxide BUN Creatinine Glucose POC Glucose Lactic Acid Calcium Ionized Calcium Phosphorus Magnesium Iron TIBC Ferritin Total Bilirubin Direct Bilirubin AST ALT Alkaline Phosphatase Total Creatine Kinase CK-MB (CK-2) Troponin T C-Reactive Protein Serum Total Protein Total Protein Albumin Kahkh-2-Lgeguekhn Smhqn-7-Vyjbxnedo PEP Interpretation Triglycerides LDL Cholesterol Direct HDL Cholesterol Free T4 PTH Intact Urine WBC (Auto) Urine Creatinine Salicylates Acetaminophen Crossmatch 03/26/19 03/26/19 03/26/19 23:22 Unknown Unknown WBC 19.5 H RBC 3.44 L Hgb 9.8 L Hct 29.9 L MCV MCHC RDW Plt Count 85 L Lymph % (Auto) Sebastian % (Auto) Lymph # Sebastian # Seg Neutrophils % Seg Neuts % (Manual) 95.0 H Lymphocytes % (Manual) 3.0 L Monocytes % (Manual) Nucleated RBC % Seg Neutrophils # Seg Neutrophils # Man 18.5 H Lymphocytes # (Manual) 0.6 L Monocytes # (Manual) PT INR D-Dimer Heparin Anti-Xa Level POC ABG pH ABG pH POC ABG pCO2 POC ABG pO2 ABG pO2 ABG HCO3 ABG O2 Saturation ABG Base Excess ABG Hemoglobin Oxyhemoglobin Sodium 135 L Potassium 5.2 H D Chloride 92.2 L Carbon Dioxide 18 L BUN 109 H Creatinine 8.5 H Glucose 117 H POC Glucose 69 L Lactic Acid Calcium 4.5 L* D Ionized Calcium Phosphorus Magnesium Iron TIBC Ferritin Total Bilirubin Direct Bilirubin AST ALT Alkaline Phosphatase Total Creatine Kinase 4527 H CK-MB (CK-2) Troponin T C-Reactive Protein Serum Total Protein Total Protein Albumin Fspkq-4-Nxodcowox Ounep-9-Dagmpdpxy PEP Interpretation Triglycerides LDL Cholesterol Direct HDL Cholesterol Free T4 PTH Intact Urine WBC (Auto) Urine Creatinine Salicylates Acetaminophen Crossmatch 03/27/19 03/27/19 03/27/19 04:30 04:30 09:00 WBC 19.2 H RBC 3.42 L Hgb 9.9 L Hct 30.0 L MCV MCHC RDW Plt Count 84 L Lymph % (Auto) Sebastian % (Auto) Lymph # Sebastian # Seg Neutrophils % Seg Neuts % (Manual) Lymphocytes % (Manual) Monocytes % (Manual) Nucleated RBC % Seg Neutrophils # Seg Neutrophils # Man Lymphocytes # (Manual) Monocytes # (Manual) PT INR D-Dimer Heparin Anti-Xa Level POC ABG pH ABG pH POC ABG pCO2 POC ABG pO2 ABG pO2 ABG HCO3 ABG O2 Saturation ABG Base Excess ABG Hemoglobin Oxyhemoglobin Sodium 135 L Potassium Chloride 93.5 L Carbon Dioxide BUN 84 H Creatinine 7.1 H Glucose POC Glucose Lactic Acid Calcium 5.0 L* Ionized Calcium Phosphorus Magnesium Iron TIBC Ferritin Total Bilirubin Direct Bilirubin AST 78 H ALT Alkaline Phosphatase 135 H Total Creatine Kinase 4677 H CK-MB (CK-2) Troponin T C-Reactive Protein Serum Total Protein Total Protein 4.8 L Albumin 2.3 L Njhmw-5-Hccmwaohy Hpvsp-0-Krouuejdw PEP Interpretation Triglycerides 409 H LDL Cholesterol Direct HDL Cholesterol Free T4 PTH Intact Urine WBC (Auto) Urine Creatinine Salicylates Acetaminophen Crossmatch 03/27/19 03/27/19 03/27/19 12:37 14:15 14:15 WBC RBC Hgb 9.7 L Hct 29.5 L MCV MCHC RDW Plt Count 87 L Lymph % (Auto) Sebastian % (Auto) Lymph # Sebastian # Seg Neutrophils % Seg Neuts % (Manual) Lymphocytes % (Manual) Monocytes % (Manual) Nucleated RBC % Seg Neutrophils # Seg Neutrophils # Man Lymphocytes # (Manual) Monocytes # (Manual) PT 15.9 H INR 1.30 H D-Dimer Heparin Anti-Xa Level POC ABG pH ABG pH POC ABG pCO2 POC ABG pO2 ABG pO2 ABG HCO3 ABG O2 Saturation ABG Base Excess ABG Hemoglobin Oxyhemoglobin Sodium Potassium Chloride Carbon Dioxide BUN Creatinine Glucose POC Glucose 129 H Lactic Acid Calcium Ionized Calcium Phosphorus Magnesium Iron TIBC Ferritin Total Bilirubin Direct Bilirubin AST ALT Alkaline Phosphatase Total Creatine Kinase CK-MB (CK-2) Troponin T C-Reactive Protein Serum Total Protein Total Protein Albumin Ktevr-6-Sxwcxwwnb Myerr-8-Akyhhtxai PEP Interpretation Triglycerides LDL Cholesterol Direct HDL Cholesterol Free T4 PTH Intact Urine WBC (Auto) Urine Creatinine Salicylates Acetaminophen Crossmatch 03/27/19 03/27/19 03/27/19 18:00 19:22 19:23 WBC RBC Hgb Hct MCV MCHC RDW Plt Count Lymph % (Auto) [place] % (Auto) Lymph # Sebastian # Seg Neutrophils % Seg Neuts % (Manual) Lymphocytes % (Manual) Monocytes % (Manual) Nucleated RBC % Seg Neutrophils # Seg Neutrophils # Man Lymphocytes # (Manual) Monocytes # (Manual) PT INR D-Dimer Heparin Anti-Xa Level < 0.10 L POC ABG pH ABG pH POC ABG pCO2 POC ABG pO2 ABG pO2 ABG HCO3 ABG O2 Saturation ABG Base Excess ABG Hemoglobin Oxyhemoglobin Sodium Potassium Chloride Carbon Dioxide BUN Creatinine Glucose POC Glucose 121 H Lactic Acid Calcium Ionized Calcium Phosphorus Magnesium Iron TIBC Ferritin Total Bilirubin Direct Bilirubin AST ALT Alkaline Phosphatase Total Creatine Kinase 4517 H CK-MB (CK-2) Troponin T C-Reactive Protein Serum Total Protein Total Protein Albumin Wpxdu-9-Zfbusarqm Vudiv-9-Pnwtkagnm PEP Interpretation Triglycerides LDL Cholesterol Direct HDL Cholesterol Free T4 PTH Intact Urine WBC (Auto) Urine Creatinine Salicylates Acetaminophen Crossmatch 03/27/19 03/27/19 03/28/19 22:10 23:52 03:49 WBC RBC Hgb Hct MCV MCHC RDW Plt Count Lymph % (Auto) [place] % (Auto) Lymph # Sebastian # Seg Neutrophils % Seg Neuts % (Manual) Lymphocytes % (Manual) Monocytes % (Manual) Nucleated RBC % Seg Neutrophils # Seg Neutrophils # Man Lymphocytes # (Manual) Monocytes # (Manual) PT INR D-Dimer Heparin Anti-Xa Level POC ABG pH 7.338 L ABG pH POC ABG pCO2 33.1 L POC ABG pO2 ABG pO2 ABG HCO3 ABG O2 Saturation ABG Base Excess ABG Hemoglobin Oxyhemoglobin Sodium Potassium Chloride Carbon Dioxide BUN Creatinine Glucose POC Glucose 113 H 117 H Lactic Acid Calcium Ionized Calcium Phosphorus Magnesium Iron TIBC Ferritin Total Bilirubin Direct Bilirubin AST ALT Alkaline Phosphatase Total Creatine Kinase CK-MB (CK-2) Troponin T C-Reactive Protein Serum Total Protein Total Protein Albumin Bcpjx-1-Plmsptslv Bkmce-2-Owdhookov PEP Interpretation Triglycerides LDL Cholesterol Direct HDL Cholesterol Free T4 PTH Intact Urine WBC (Auto) Urine Creatinine Salicylates Acetaminophen Crossmatch 03/28/19 03/28/19 03/28/19 05:13 05:13 06:18 WBC RBC Hgb Hct MCV MCHC RDW Plt Count Lymph % (Auto) [place] % (Auto) Lymph # Sebastian # Seg Neutrophils % Seg Neuts % (Manual) Lymphocytes % (Manual) Monocytes % (Manual) Nucleated RBC % Seg Neutrophils # Seg Neutrophils # Man Lymphocytes # (Manual) Monocytes # (Manual) PT INR D-Dimer Heparin Anti-Xa Level 0.23 L POC ABG pH ABG pH POC ABG pCO2 POC ABG pO2 ABG pO2 ABG HCO3 ABG O2 Saturation ABG Base Excess ABG Hemoglobin Oxyhemoglobin Sodium 135 L Potassium 5.5 H D Chloride 95.1 L Carbon Dioxide 16 L D BUN 129 H Creatinine 9.3 H Glucose 158 H POC Glucose 202 H Lactic Acid Calcium 4.0 L* D Ionized Calcium Phosphorus 12.40 H Magnesium Iron TIBC Ferritin Total Bilirubin Direct Bilirubin AST ALT Alkaline Phosphatase Total Creatine Kinase 4266 H CK-MB (CK-2) Troponin T C-Reactive Protein Serum Total Protein Total Protein Albumin Sltnl-2-Oygwztiro Rylbk-9-Vfehiregv PEP Interpretation Triglycerides LDL Cholesterol Direct HDL Cholesterol Free T4 PTH Intact Urine WBC (Auto) Urine Creatinine Salicylates Acetaminophen Crossmatch 03/28/19 03/28/19 03/28/19 08:25 10:00 12:00 WBC RBC Hgb 4.9 L* D Hct 15.4 L* D MCV MCHC RDW Plt Count Lymph % (Auto) [place] % (Auto) Lymph # Sebastian # Seg Neutrophils % Seg Neuts % (Manual) Lymphocytes % (Manual) Monocytes % (Manual) Nucleated RBC % Seg Neutrophils # Seg Neutrophils # Man Lymphocytes # (Manual) Monocytes # (Manual) PT 17.9 H INR 1.52 H D-Dimer 4845.98 H Heparin Anti-Xa Level POC ABG pH ABG pH POC ABG pCO2 POC ABG pO2 ABG pO2 ABG HCO3 ABG O2 Saturation ABG Base Excess ABG Hemoglobin Oxyhemoglobin Sodium Potassium Chloride Carbon Dioxide BUN Creatinine Glucose POC Glucose Lactic Acid Calcium Ionized Calcium Phosphorus Magnesium Iron TIBC Ferritin Total Bilirubin Direct Bilirubin AST ALT Alkaline Phosphatase Total Creatine Kinase CK-MB (CK-2) Troponin T C-Reactive Protein Serum Total Protein Total Protein Albumin Yyuvg-4-Xnyhlmxtj Gzzpz-4-Pyqoyzyut PEP Interpretation Triglycerides LDL Cholesterol Direct HDL Cholesterol Free T4 PTH Intact Urine WBC (Auto) Urine Creatinine Salicylates Acetaminophen Crossmatch See Detail 03/28/19 03/28/19 03/28/19 12:28 14:10 17:43 WBC RBC Hgb 5.9 L* Hct 18.3 L* MCV MCHC RDW Plt Count Lymph % (Auto) [place] % (Auto) Lymph # Sebastian # Seg Neutrophils % Seg Neuts % (Manual) Lymphocytes % (Manual) Monocytes % (Manual) Nucleated RBC % Seg Neutrophils # Seg Neutrophils # Man Lymphocytes # (Manual) Monocytes # (Manual) PT INR D-Dimer Heparin Anti-Xa Level POC ABG pH ABG pH POC ABG pCO2 POC ABG pO2 ABG pO2 ABG HCO3 ABG O2 Saturation ABG Base Excess ABG Hemoglobin Oxyhemoglobin Sodium Potassium Chloride Carbon Dioxide BUN Creatinine Glucose POC Glucose 153 H 159 H Lactic Acid Calcium Ionized Calcium Phosphorus Magnesium Iron TIBC Ferritin Total Bilirubin Direct Bilirubin AST ALT Alkaline Phosphatase Total Creatine Kinase CK-MB (CK-2) Troponin T C-Reactive Protein Serum Total Protein Total Protein Albumin Elnum-3-Tfknzlywt Ezzaa-4-Dwvdsixcd PEP Interpretation Triglycerides LDL Cholesterol Direct HDL Cholesterol Free T4 PTH Intact Urine WBC (Auto) Urine Creatinine Salicylates Acetaminophen Crossmatch 03/28/19 03/28/19 03/28/19 18:10 Unknown 23:59 WBC 24.8 H RBC 3.42 L Hgb 10.2 L D Hct 31.1 L D MCV MCHC RDW 15.4 H Plt Count 54 L Lymph % (Auto) Sebastian % (Auto) Lymph # Sebastian # Seg Neutrophils % Seg Neuts % (Manual) 91.0 H Lymphocytes % (Manual) 8.0 L Monocytes % (Manual) Nucleated RBC % Seg Neutrophils # Seg Neutrophils # Man 22.6 H Lymphocytes # (Manual) Monocytes # (Manual) PT INR D-Dimer Heparin Anti-Xa Level POC ABG pH ABG pH POC ABG pCO2 POC ABG pO2 ABG pO2 ABG HCO3 ABG O2 Saturation ABG Base Excess ABG Hemoglobin Oxyhemoglobin Sodium Potassium 5.7 H Chloride Carbon Dioxide BUN Creatinine Glucose POC Glucose 107 H Lactic Acid Calcium Ionized Calcium Phosphorus Magnesium Iron TIBC Ferritin Total Bilirubin Direct Bilirubin AST ALT Alkaline Phosphatase Total Creatine Kinase CK-MB (CK-2) Troponin T C-Reactive Protein Serum Total Protein Total Protein Albumin Ltdfw-3-Uxspplqux Lnkro-4-Lxdkyzvbl PEP Interpretation Triglycerides LDL Cholesterol Direct HDL Cholesterol Free T4 PTH Intact Urine WBC (Auto) Urine Creatinine Salicylates Acetaminophen Crossmatch 03/29/19 03/29/19 03/29/19 04:29 05:46 06:22 WBC RBC Hgb 8.6 L Hct 25.7 L MCV MCHC RDW Plt Count 93 L Lymph % (Auto) Sebastian % (Auto) Lymph # Sebastian # Seg Neutrophils % Seg Neuts % (Manual) Lymphocytes % (Manual) Monocytes % (Manual) Nucleated RBC % Seg Neutrophils # Seg Neutrophils # Man Lymphocytes # (Manual) Monocytes # (Manual) PT INR D-Dimer Heparin Anti-Xa Level POC ABG pH ABG pH POC ABG pCO2 32.2 L POC ABG pO2 ABG pO2 ABG HCO3 ABG O2 Saturation ABG Base Excess ABG Hemoglobin Oxyhemoglobin Sodium Potassium Chloride Carbon Dioxide BUN Creatinine Glucose POC Glucose 113 H Lactic Acid Calcium Ionized Calcium Phosphorus Magnesium Iron TIBC Ferritin Total Bilirubin Direct Bilirubin AST ALT Alkaline Phosphatase Total Creatine Kinase CK-MB (CK-2) Troponin T C-Reactive Protein Serum Total Protein Total Protein Albumin Pwald-2-Oxlljoqly Vtstm-3-Nncecrbyw PEP Interpretation Triglycerides LDL Cholesterol Direct HDL Cholesterol Free T4 PTH Intact Urine WBC (Auto) Urine Creatinine Salicylates Acetaminophen Crossmatch 03/29/19 03/29/19 03/29/19 06:22 06:22 06:22 WBC 23.2 H RBC 2.91 L Hgb 8.6 L Hct 25.8 L MCV MCHC RDW Plt Count 91 L Lymph % (Auto) Sebastian % (Auto) Lymph # Sebastian # Seg Neutrophils % Seg Neuts % (Manual) Lymphocytes % (Manual) Monocytes % (Manual) Nucleated RBC % Seg Neutrophils # Seg Neutrophils # Man Lymphocytes # (Manual) Monocytes # (Manual) PT INR D-Dimer Heparin Anti-Xa Level POC ABG pH ABG pH POC ABG pCO2 POC ABG pO2 ABG pO2 ABG HCO3 ABG O2 Saturation ABG Base Excess ABG Hemoglobin Oxyhemoglobin Sodium 133 L Potassium Chloride 93.8 L Carbon Dioxide 18 L BUN 109 H Creatinine 7.4 H Glucose 124 H POC Glucose Lactic Acid Calcium 4.6 L* Ionized Calcium Phosphorus Magnesium Iron TIBC Ferritin Total Bilirubin Direct Bilirubin AST ALT Alkaline Phosphatase Total Creatine Kinase 3401 H CK-MB (CK-2) Troponin T C-Reactive Protein Serum Total Protein Total Protein Albumin Vvauz-7-Gtuehqphv Qudpq-8-Pjmfygwyx PEP Interpretation Triglycerides 309 H LDL Cholesterol Direct HDL Cholesterol Free T4 PTH Intact Urine WBC (Auto) Urine Creatinine Salicylates Acetaminophen Crossmatch 03/29/19 03/29/19 03/29/19 11:48 11:48 18:24 WBC RBC Hgb 7.8 L Hct 23.2 L MCV MCHC RDW Plt Count Lymph % (Auto) Sebastian % (Auto) Lymph # Sebastian # Seg Neutrophils % Seg Neuts % (Manual) Lymphocytes % (Manual) Monocytes % (Manual) Nucleated RBC % Seg Neutrophils # Seg Neutrophils # Man Lymphocytes # (Manual) Monocytes # (Manual) PT 15.3 H INR 1.24 H D-Dimer Heparin Anti-Xa Level POC ABG pH ABG pH POC ABG pCO2 POC ABG pO2 ABG pO2 ABG HCO3 ABG O2 Saturation ABG Base Excess ABG Hemoglobin Oxyhemoglobin Sodium Potassium Chloride Carbon Dioxide BUN Creatinine Glucose POC Glucose 122 H Lactic Acid Calcium Ionized Calcium Phosphorus Magnesium Iron TIBC Ferritin Total Bilirubin Direct Bilirubin AST ALT Alkaline Phosphatase Total Creatine Kinase CK-MB (CK-2) Troponin T C-Reactive Protein Serum Total Protein Total Protein Albumin Pvvmc-2-Hpjpugbkv Adfwv-3-Mrpwwunip PEP Interpretation Triglycerides LDL Cholesterol Direct HDL Cholesterol Free T4 PTH Intact Urine WBC (Auto) Urine Creatinine Salicylates Acetaminophen Crossmatch 03/30/19 03/30/19 03/30/19 00:40 04:31 05:04 WBC RBC Hgb 7.6 L Hct 23.0 L MCV MCHC RDW Plt Count Lymph % (Auto) Sebastian % (Auto) Lymph # Sebastian # Seg Neutrophils % Seg Neuts % (Manual) Lymphocytes % (Manual) Monocytes % (Manual) Nucleated RBC % Seg Neutrophils # Seg Neutrophils # Man Lymphocytes # (Manual) Monocytes # (Manual) PT INR D-Dimer Heparin Anti-Xa Level POC ABG pH 7.346 L ABG pH POC ABG pCO2 POC ABG pO2 62 L ABG pO2 ABG HCO3 ABG O2 Saturation ABG Base Excess ABG Hemoglobin Oxyhemoglobin Sodium Potassium Chloride Carbon Dioxide BUN 79 H Creatinine 6.4 H Glucose POC Glucose Lactic Acid Calcium 6.1 L D Ionized Calcium Phosphorus Magnesium Iron TIBC Ferritin Total Bilirubin Direct Bilirubin AST ALT Alkaline Phosphatase Total Creatine Kinase CK-MB (CK-2) Troponin T C-Reactive Protein Serum Total Protein Total Protein Albumin Uzzuw-8-Wxjrsrben Negac-6-Ewryiybht PEP Interpretation Triglycerides LDL Cholesterol Direct HDL Cholesterol Free T4 PTH Intact Urine WBC (Auto) Urine Creatinine Salicylates Acetaminophen Crossmatch 03/30/19 03/30/19 03/30/19 08:45 12:09 22:43 WBC 14.3 H RBC 2.33 L Hgb 7.0 L 7.4 L Hct 21.0 L 22.3 L MCV MCHC RDW 15.6 H Plt Count 135 L Lymph % (Auto) Sebastian % (Auto) Lymph # Sebastian # Seg Neutrophils % Seg Neuts % (Manual) Lymphocytes % (Manual) Monocytes % (Manual) Nucleated RBC % Seg Neutrophils # Seg Neutrophils # Man Lymphocytes # (Manual) Monocytes # (Manual) PT INR D-Dimer Heparin Anti-Xa Level POC ABG pH ABG pH POC ABG pCO2 POC ABG pO2 ABG pO2 ABG HCO3 ABG O2 Saturation ABG Base Excess ABG Hemoglobin Oxyhemoglobin Sodium Potassium Chloride Carbon Dioxide BUN Creatinine Glucose POC Glucose Lactic Acid Calcium Ionized Calcium 3.7 L Phosphorus Magnesium Iron TIBC Ferritin Total Bilirubin Direct Bilirubin AST ALT Alkaline Phosphatase Total Creatine Kinase CK-MB (CK-2) Troponin T C-Reactive Protein Serum Total Protein Total Protein Albumin Putmu-7-Zhwkhundf Kjohl-7-Kdjvnttfh PEP Interpretation Triglycerides LDL Cholesterol Direct HDL Cholesterol Free T4 PTH Intact Urine WBC (Auto) Urine Creatinine Salicylates Acetaminophen Crossmatch 03/30/19 03/30/19 03/31/19 23:38 Unknown 04:44 WBC 11.5 H RBC 2.40 L Hgb 7.3 L Hct 21.9 L MCV MCHC RDW 15.4 H Plt Count Lymph % (Auto) 10.6 L Sebastian % (Auto) Lymph # Sebastian # Seg Neutrophils % 81.7 H Seg Neuts % (Manual) Lymphocytes % (Manual) Monocytes % (Manual) Nucleated RBC % Seg Neutrophils # 9.4 H Seg Neutrophils # Man Lymphocytes # (Manual) Monocytes # (Manual) PT INR D-Dimer Heparin Anti-Xa Level POC ABG pH ABG pH POC ABG pCO2 POC ABG pO2 ABG pO2 ABG HCO3 ABG O2 Saturation ABG Base Excess ABG Hemoglobin Oxyhemoglobin Sodium Potassium Chloride Carbon Dioxide BUN Creatinine Glucose POC Glucose 155 H Lactic Acid Calcium Ionized Calcium Phosphorus Magnesium Iron TIBC Ferritin Total Bilirubin Direct Bilirubin 0.4 H AST 63 H ALT Alkaline Phosphatase Total Creatine Kinase CK-MB (CK-2) Troponin T C-Reactive Protein Serum Total Protein Total Protein 4.9 L Albumin 2.2 L Wvfdt-3-Ctgmqzeby Wroiw-9-Rhvtzmoms PEP Interpretation Triglycerides LDL Cholesterol Direct HDL Cholesterol Free T4 PTH Intact Urine WBC (Auto) Urine Creatinine Salicylates Acetaminophen Crossmatch 03/31/19 03/31/19 03/31/19 04:44 05:44 08:20 WBC RBC Hgb Hct MCV MCHC RDW Plt Count Lymph % (Auto) Sebastian % (Auto) Lymph # Sebastian # Seg Neutrophils % Seg Neuts % (Manual) Lymphocytes % (Manual) Monocytes % (Manual) Nucleated RBC % Seg Neutrophils # Seg Neutrophils # Man Lymphocytes # (Manual) Monocytes # (Manual) PT INR D-Dimer Heparin Anti-Xa Level POC ABG pH ABG pH POC ABG pCO2 53.5 H POC ABG pO2 62 L ABG pO2 ABG HCO3 ABG O2 Saturation ABG Base Excess ABG Hemoglobin Oxyhemoglobin Sodium 135 L Potassium Chloride 96.7 L Carbon Dioxide 19 L BUN 94 H Creatinine 7.8 H Glucose POC Glucose Lactic Acid Calcium 5.3 L* Ionized Calcium Phosphorus 8.20 H Magnesium Iron TIBC Ferritin Total Bilirubin Direct Bilirubin 0.4 H AST 60 H ALT Alkaline Phosphatase Total Creatine Kinase CK-MB (CK-2) Troponin T C-Reactive Protein Serum Total Protein Total Protein 4.8 L Albumin 2.1 L Wrdwr-7-Jlkumhcor Ibwjn-3-Arubjntdm PEP Interpretation Triglycerides LDL Cholesterol Direct HDL Cholesterol Free T4 PTH Intact Urine WBC (Auto) Urine Creatinine Salicylates Acetaminophen Crossmatch 03/31/19 04/01/19 04/01/19 22:14 04:27 04:27 WBC RBC 2.60 L Hgb 8.0 L Hct 24.1 L MCV MCHC RDW 15.7 H Plt Count Lymph % (Auto) 7.9 L Sebastian % (Auto) Lymph # 0.7 L Sebastian # Seg Neutrophils % 83.6 H Seg Neuts % (Manual) Lymphocytes % (Manual) Monocytes % (Manual) Nucleated RBC % Seg Neutrophils # Seg Neutrophils # Man Lymphocytes # (Manual) Monocytes # (Manual) PT INR D-Dimer Heparin Anti-Xa Level POC ABG pH 7.286 L ABG pH POC ABG pCO2 54.7 H POC ABG pO2 179 H ABG pO2 ABG HCO3 ABG O2 Saturation ABG Base Excess ABG Hemoglobin Oxyhemoglobin Sodium Potassium Chloride Carbon Dioxide BUN 68 H Creatinine 6.6 H Glucose POC Glucose Lactic Acid Calcium 6.5 L D Ionized Calcium Phosphorus 7.30 H Magnesium Iron TIBC Ferritin Total Bilirubin Direct Bilirubin AST ALT Alkaline Phosphatase Total Creatine Kinase 1652 H CK-MB (CK-2) Troponin T C-Reactive Protein Serum Total Protein Total Protein Albumin Okcbo-2-Pyjcmyscs Vsuex-3-Hbcqiooms PEP Interpretation Triglycerides LDL Cholesterol Direct HDL Cholesterol Free T4 PTH Intact Urine WBC (Auto) Urine Creatinine Salicylates Acetaminophen Crossmatch 04/01/19 04/01/19 04/01/19 05:14 05:37 18:37 WBC RBC Hgb Hct MCV MCHC RDW Plt Count Lymph % (Auto) Sebastian % (Auto) Lymph # Sebastian # Seg Neutrophils % Seg Neuts % (Manual) Lymphocytes % (Manual) Monocytes % (Manual) Nucleated RBC % Seg Neutrophils # Seg Neutrophils # Man Lymphocytes # (Manual) Monocytes # (Manual) PT INR D-Dimer Heparin Anti-Xa Level POC ABG pH 7.283 L ABG pH POC ABG pCO2 53.4 H POC ABG pO2 241 H ABG pO2 ABG HCO3 ABG O2 Saturation ABG Base Excess ABG Hemoglobin Oxyhemoglobin Sodium Potassium Chloride Carbon Dioxide BUN Creatinine Glucose POC Glucose 111 H 119 H Lactic Acid Calcium Ionized Calcium Phosphorus Magnesium Iron TIBC Ferritin Total Bilirubin Direct Bilirubin AST ALT Alkaline Phosphatase Total Creatine Kinase CK-MB (CK-2) Troponin T C-Reactive Protein Serum Total Protein Total Protein Albumin Ifdod-2-Jcrvhlfkx Ecslf-5-Tgahmwwqg PEP Interpretation Triglycerides LDL Cholesterol Direct HDL Cholesterol Free T4 PTH Intact Urine WBC (Auto) Urine Creatinine Salicylates Acetaminophen Crossmatch 04/01/19 04/02/19 04/02/19 21:28 04:40 05:03 WBC RBC 2.36 L Hgb 7.2 L Hct 21.9 L MCV MCHC RDW 16.0 H Plt Count Lymph % (Auto) 10.8 L Sebastian % (Auto) Lymph # 0.8 L Sebastian # Seg Neutrophils % 80.3 H Seg Neuts % (Manual) Lymphocytes % (Manual) Monocytes % (Manual) Nucleated RBC % Seg Neutrophils # Seg Neutrophils # Man Lymphocytes # (Manual) Monocytes # (Manual) PT INR D-Dimer Heparin Anti-Xa Level POC ABG pH 7.299 L 7.300 L ABG pH POC ABG pCO2 48.2 H 45.2 H POC ABG pO2 133 H 107 H ABG pO2 ABG HCO3 ABG O2 Saturation ABG Base Excess ABG Hemoglobin Oxyhemoglobin Sodium Potassium Chloride Carbon Dioxide BUN Creatinine Glucose POC Glucose Lactic Acid Calcium Ionized Calcium Phosphorus Magnesium Iron TIBC Ferritin Total Bilirubin Direct Bilirubin AST ALT Alkaline Phosphatase Total Creatine Kinase CK-MB (CK-2) Troponin T C-Reactive Protein Serum Total Protein Total Protein Albumin Neubs-3-Fpelbixbs Mmpyj-5-Whiktecrr PEP Interpretation Triglycerides LDL Cholesterol Direct HDL Cholesterol Free T4 PTH Intact Urine WBC (Auto) Urine Creatinine Salicylates Acetaminophen Crossmatch 04/02/19 04/02/19 04/02/19 05:03 05:03 12:15 WBC RBC Hgb 7.4 L Hct 22.6 L MCV MCHC RDW Plt Count Lymph % (Auto) Sebastian % (Auto) Lymph # Sebastian # Seg Neutrophils % Seg Neuts % (Manual) Lymphocytes % (Manual) Monocytes % (Manual) Nucleated RBC % Seg Neutrophils # Seg Neutrophils # Man Lymphocytes # (Manual) Monocytes # (Manual) PT INR D-Dimer Heparin Anti-Xa Level POC ABG pH ABG pH POC ABG pCO2 POC ABG pO2 ABG pO2 ABG HCO3 ABG O2 Saturation ABG Base Excess ABG Hemoglobin Oxyhemoglobin Sodium 136 L Potassium Chloride 97.8 L Carbon Dioxide 18 L BUN 82 H Creatinine 8.2 H Glucose POC Glucose Lactic Acid Calcium 6.7 L Ionized Calcium Phosphorus 7.50 H Magnesium Iron 26 L TIBC 138 L Ferritin 607.0 H Total Bilirubin Direct Bilirubin AST ALT Alkaline Phosphatase Total Creatine Kinase CK-MB (CK-2) Troponin T C-Reactive Protein Serum Total Protein Total Protein Albumin Nmuon-8-Rcrfsoxsl Nnxjt-0-Clpzyxezt PEP Interpretation Triglycerides LDL Cholesterol Direct HDL Cholesterol Free T4 PTH Intact Urine WBC (Auto) Urine Creatinine Salicylates Acetaminophen Crossmatch 04/02/19 04/02/19 04/03/19 16:34 17:14 04:18 WBC RBC Hgb Hct MCV MCHC RDW Plt Count Lymph % (Auto) Sebastian % (Auto) Lymph # Sebastian # Seg Neutrophils % Seg Neuts % (Manual) Lymphocytes % (Manual) Monocytes % (Manual) Nucleated RBC % Seg Neutrophils # Seg Neutrophils # Man Lymphocytes # (Manual) Monocytes # (Manual) PT INR D-Dimer Heparin Anti-Xa Level POC ABG pH ABG pH POC ABG pCO2 POC ABG pO2 146 H ABG pO2 ABG HCO3 ABG O2 Saturation ABG Base Excess ABG Hemoglobin Oxyhemoglobin Sodium Potassium Chloride Carbon Dioxide BUN Creatinine Glucose POC Glucose 108 H Lactic Acid Calcium Ionized Calcium Phosphorus Magnesium Iron TIBC Ferritin Total Bilirubin Direct Bilirubin AST ALT Alkaline Phosphatase Total Creatine Kinase CK-MB (CK-2) Troponin T C-Reactive Protein Serum Total Protein Total Protein Albumin Uwoxy-5-Cvyjerfba Pujwg-0-Esxqykwkm PEP Interpretation Triglycerides LDL Cholesterol Direct HDL Cholesterol Free T4 PTH Intact Urine WBC (Auto) Urine Creatinine Salicylates Acetaminophen Crossmatch See Detail 04/03/19 04/03/19 04/03/19 04:25 08:30 18:24 WBC RBC 2.40 L Hgb 7.3 L Hct 21.9 L MCV MCHC RDW Plt Count Lymph % (Auto) Sebastian % (Auto) 7.7 H Lymph # 0.9 L Sebastian # Seg Neutrophils % 74.6 H Seg Neuts % (Manual) Lymphocytes % (Manual) Monocytes % (Manual) Nucleated RBC % Seg Neutrophils # Seg Neutrophils # Man Lymphocytes # (Manual) Monocytes # (Manual) PT INR D-Dimer Heparin Anti-Xa Level POC ABG pH ABG pH POC ABG pCO2 POC ABG pO2 ABG pO2 ABG HCO3 ABG O2 Saturation ABG Base Excess ABG Hemoglobin Oxyhemoglobin Sodium 136 L Potassium Chloride 97.0 L Carbon Dioxide BUN 58 H Creatinine 7.3 H Glucose POC Glucose 106 H Lactic Acid Calcium 7.5 L Ionized Calcium Phosphorus 5.80 H D Magnesium Iron TIBC Ferritin Total Bilirubin Direct Bilirubin AST ALT Alkaline Phosphatase Total Creatine Kinase CK-MB (CK-2) Troponin T C-Reactive Protein Serum Total Protein Total Protein Albumin Szrix-8-Karmtrxsy Yjmgj-9-Bkpzmrzmq PEP Interpretation Triglycerides LDL Cholesterol Direct HDL Cholesterol Free T4 PTH Intact Urine WBC (Auto) Urine Creatinine Salicylates Acetaminophen Crossmatch 04/03/19 04/04/19 04/04/19 23:43 04:47 04:47 WBC RBC 2.72 L Hgb 8.3 L Hct 24.7 L MCV MCHC RDW 15.6 H Plt Count Lymph % (Auto) Sebastian % (Auto) 10.1 H Lymph # 0.8 L Sebastian # Seg Neutrophils % 71.4 H Seg Neuts % (Manual) Lymphocytes % (Manual) Monocytes % (Manual) Nucleated RBC % Seg Neutrophils # Seg Neutrophils # Man Lymphocytes # (Manual) Monocytes # (Manual) PT INR D-Dimer Heparin Anti-Xa Level POC ABG pH ABG pH POC ABG pCO2 POC ABG pO2 ABG pO2 123.8 H ABG HCO3 ABG O2 Saturation ABG Base Excess -3.0 L ABG Hemoglobin 7.9 L Oxyhemoglobin Sodium 134 L Potassium Chloride 97.9 L Carbon Dioxide BUN 64 H Creatinine 8.1 H Glucose POC Glucose Lactic Acid Calcium 7.2 L Ionized Calcium Phosphorus Magnesium Iron TIBC Ferritin Total Bilirubin Direct Bilirubin AST ALT Alkaline Phosphatase Total Creatine Kinase CK-MB (CK-2) Troponin T C-Reactive Protein Serum Total Protein Total Protein Albumin Huylu-0-Xnbykbcnd Kxrjc-4-Gwgtrbygj PEP Interpretation Triglycerides LDL Cholesterol Direct HDL Cholesterol Free T4 PTH Intact Urine WBC (Auto) Urine Creatinine Salicylates Acetaminophen Crossmatch 04/04/19 04/04/19 04/04/19 06:07 13:40 18:18 WBC RBC Hgb Hct MCV MCHC RDW Plt Count Lymph % (Auto) Sebastian % (Auto) Lymph # Sebastian # Seg Neutrophils % Seg Neuts % (Manual) Lymphocytes % (Manual) Monocytes % (Manual) Nucleated RBC % Seg Neutrophils # Seg Neutrophils # Man Lymphocytes # (Manual) Monocytes # (Manual) PT INR D-Dimer Heparin Anti-Xa Level POC ABG pH ABG pH POC ABG pCO2 POC ABG pO2 ABG pO2 95.9 H ABG HCO3 ABG O2 Saturation ABG Base Excess -3.0 L ABG Hemoglobin 8.5 L Oxyhemoglobin Sodium Potassium Chloride Carbon Dioxide BUN Creatinine Glucose POC Glucose 107 H 107 H Lactic Acid Calcium Ionized Calcium Phosphorus Magnesium Iron TIBC Ferritin Total Bilirubin Direct Bilirubin AST ALT Alkaline Phosphatase Total Creatine Kinase CK-MB (CK-2) Troponin T C-Reactive Protein Serum Total Protein Total Protein Albumin Wciqu-0-Emuidcocr Gfpng-1-Snhrbjdpk PEP Interpretation Triglycerides LDL Cholesterol Direct HDL Cholesterol Free T4 PTH Intact Urine WBC (Auto) Urine Creatinine Salicylates Acetaminophen Crossmatch 04/04/19 04/05/19 04/05/19 21:22 04:09 04:09 WBC RBC 2.76 L Hgb 8.4 L Hct 25.4 L MCV MCHC RDW 15.8 H Plt Count 133 L Lymph % (Auto) Sebastian % (Auto) 9.6 H Lymph # 0.7 L Sebastian # Seg Neutrophils % 72.6 H Seg Neuts % (Manual) Lymphocytes % (Manual) Monocytes % (Manual) Nucleated RBC % Seg Neutrophils # Seg Neutrophils # Man Lymphocytes # (Manual) Monocytes # (Manual) PT INR D-Dimer Heparin Anti-Xa Level POC ABG pH ABG pH POC ABG pCO2 47.2 H POC ABG pO2 137 H ABG pO2 ABG HCO3 ABG O2 Saturation ABG Base Excess ABG Hemoglobin Oxyhemoglobin Sodium 136 L Potassium Chloride Carbon Dioxide BUN 46 H Creatinine 6.7 H Glucose POC Glucose Lactic Acid Calcium 7.7 L Ionized Calcium Phosphorus Magnesium Iron TIBC Ferritin Total Bilirubin Direct Bilirubin AST ALT Alkaline Phosphatase Total Creatine Kinase CK-MB (CK-2) Troponin T C-Reactive Protein Serum Total Protein Total Protein Albumin Scjwb-9-Bfxtvzmkj Dobei-0-Spwgwfigc PEP Interpretation Triglycerides LDL Cholesterol Direct HDL Cholesterol Free T4 PTH Intact Urine WBC (Auto) Urine Creatinine Salicylates Acetaminophen Crossmatch 04/05/19 04/05/19 04/05/19 05:28 06:14 16:50 WBC RBC Hgb Hct MCV MCHC RDW Plt Count Lymph % (Auto) Sebastian % (Auto) Lymph # Sebastian # Seg Neutrophils % Seg Neuts % (Manual) Lymphocytes % (Manual) Monocytes % (Manual) Nucleated RBC % Seg Neutrophils # Seg Neutrophils # Man Lymphocytes # (Manual) Monocytes # (Manual) PT INR D-Dimer Heparin Anti-Xa Level POC ABG pH ABG pH POC ABG pCO2 POC ABG pO2 67 L ABG pO2 ABG HCO3 ABG O2 Saturation ABG Base Excess ABG Hemoglobin Oxyhemoglobin Sodium Potassium Chloride Carbon Dioxide BUN Creatinine Glucose POC Glucose 108 H Lactic Acid Calcium Ionized Calcium Phosphorus Magnesium Iron TIBC Ferritin Total Bilirubin Direct Bilirubin AST ALT Alkaline Phosphatase Total Creatine Kinase CK-MB (CK-2) Troponin T C-Reactive Protein Serum Total Protein Total Protein Albumin Fyedo-8-Nutnkkwhf Nmgmc-7-Mqrrsvioh PEP Interpretation Triglycerides LDL Cholesterol Direct HDL Cholesterol Free T4 PTH Intact Urine WBC (Auto) 40.0 H Urine Creatinine Salicylates Acetaminophen Crossmatch 04/05/19 04/06/19 04/06/19 17:22 00:13 04:44 WBC RBC 2.48 L Hgb 7.5 L Hct 22.9 L MCV MCHC RDW 16.0 H Plt Count 107 L Lymph % (Auto) Sebastian % (Auto) 10.7 H Lymph # 1.0 L Sebastian # Seg Neutrophils % Seg Neuts % (Manual) Lymphocytes % (Manual) Monocytes % (Manual) Nucleated RBC % Seg Neutrophils # Seg Neutrophils # Man Lymphocytes # (Manual) Monocytes # (Manual) PT INR D-Dimer Heparin Anti-Xa Level POC ABG pH ABG pH POC ABG pCO2 POC ABG pO2 ABG pO2 ABG HCO3 ABG O2 Saturation ABG Base Excess ABG Hemoglobin Oxyhemoglobin Sodium Potassium Chloride Carbon Dioxide BUN Creatinine Glucose POC Glucose 118 H 138 H Lactic Acid Calcium Ionized Calcium Phosphorus Magnesium Iron TIBC Ferritin Total Bilirubin Direct Bilirubin AST ALT Alkaline Phosphatase Total Creatine Kinase CK-MB (CK-2) Troponin T C-Reactive Protein Serum Total Protein Total Protein Albumin Vehkl-1-Mxiorzfdc Nfush-6-Zwhcdkoey PEP Interpretation Triglycerides LDL Cholesterol Direct HDL Cholesterol Free T4 PTH Intact Urine WBC (Auto) Urine Creatinine Salicylates Acetaminophen Crossmatch 04/06/19 04/06/19 04/06/19 04:44 05:20 05:23 WBC RBC Hgb Hct MCV MCHC RDW Plt Count Lymph % (Auto) Sebastian % (Auto) Lymph # Sebastian # Seg Neutrophils % Seg Neuts % (Manual) Lymphocytes % (Manual) Monocytes % (Manual) Nucleated RBC % Seg Neutrophils # Seg Neutrophils # Man Lymphocytes # (Manual) Monocytes # (Manual) PT INR D-Dimer Heparin Anti-Xa Level POC ABG pH ABG pH POC ABG pCO2 POC ABG pO2 ABG pO2 104.0 H ABG HCO3 ABG O2 Saturation ABG Base Excess -2.1 L ABG Hemoglobin 7.3 L Oxyhemoglobin Sodium Potassium Chloride Carbon Dioxide BUN 64 H Creatinine 8.2 H Glucose 103 H POC Glucose 118 H Lactic Acid Calcium 7.3 L Ionized Calcium Phosphorus Magnesium Iron TIBC Ferritin Total Bilirubin Direct Bilirubin AST ALT Alkaline Phosphatase Total Creatine Kinase CK-MB (CK-2) Troponin T C-Reactive Protein Serum Total Protein Total Protein Albumin Mvetq-5-Kbahxccgb Rrdpi-6-Bshmiajvi PEP Interpretation Triglycerides LDL Cholesterol Direct HDL Cholesterol Free T4 PTH Intact Urine WBC (Auto) Urine Creatinine Salicylates Acetaminophen Crossmatch 04/06/19 04/07/19 04/07/19 12:02 05:40 05:40 WBC RBC 2.59 L Hgb 7.9 L Hct 23.8 L MCV MCHC RDW 15.8 H Plt Count 89 L Lymph % (Auto) Sebastian % (Auto) 10.3 H Lymph # 1.1 L Sebastian # Seg Neutrophils % Seg Neuts % (Manual) Lymphocytes % (Manual) Monocytes % (Manual) Nucleated RBC % Seg Neutrophils # Seg Neutrophils # Man Lymphocytes # (Manual) Monocytes # (Manual) PT INR D-Dimer Heparin Anti-Xa Level POC ABG pH ABG pH POC ABG pCO2 POC ABG pO2 ABG pO2 ABG HCO3 ABG O2 Saturation ABG Base Excess ABG Hemoglobin Oxyhemoglobin Sodium 136 L Potassium 3.5 L Chloride Carbon Dioxide BUN 46 H Creatinine 6.2 H Glucose POC Glucose 108 H Lactic Acid Calcium 7.9 L Ionized Calcium Phosphorus Magnesium Iron TIBC Ferritin Total Bilirubin Direct Bilirubin AST ALT Alkaline Phosphatase Total Creatine Kinase CK-MB (CK-2) Troponin T C-Reactive Protein Serum Total Protein Total Protein Albumin Ljone-7-Oghgcjeiu Mcwrl-9-Rmqvzgbzb PEP Interpretation Triglycerides LDL Cholesterol Direct HDL Cholesterol Free T4 PTH Intact Urine WBC (Auto) Urine Creatinine Salicylates Acetaminophen Crossmatch 04/07/19 04/09/19 04/09/19 12:57 04:28 04:28 WBC RBC 2.85 L Hgb 8.7 L Hct 26.2 L MCV MCHC RDW 15.6 H Plt Count Lymph % (Auto) Sebastian % (Auto) 10.4 H Lymph # 1.0 L Sebastian # Seg Neutrophils % 73.3 H Seg Neuts % (Manual) Lymphocytes % (Manual) Monocytes % (Manual) Nucleated RBC % Seg Neutrophils # Seg Neutrophils # Man Lymphocytes # (Manual) Monocytes # (Manual) PT INR D-Dimer Heparin Anti-Xa Level POC ABG pH ABG pH POC ABG pCO2 POC ABG pO2 107 H ABG pO2 ABG HCO3 ABG O2 Saturation ABG Base Excess ABG Hemoglobin Oxyhemoglobin Sodium Potassium 3.5 L Chloride 97.8 L Carbon Dioxide BUN 62 H Creatinine 8.1 H Glucose POC Glucose Lactic Acid Calcium 8.2 L Ionized Calcium Phosphorus 5.10 H Magnesium Iron TIBC Ferritin Total Bilirubin Direct Bilirubin AST ALT Alkaline Phosphatase Total Creatine Kinase CK-MB (CK-2) Troponin T C-Reactive Protein Serum Total Protein Total Protein Albumin Ovbut-0-Wltjxqwaj Riljf-8-Hsztvgjon PEP Interpretation Triglycerides LDL Cholesterol Direct HDL Cholesterol Free T4 PTH Intact Urine WBC (Auto) Urine Creatinine Salicylates Acetaminophen Crossmatch 04/10/19 04/11/19 04/11/19 18:15 00:25 04:16 WBC 11.5 H RBC 2.91 L Hgb 8.9 L Hct 27.6 L MCV 95 H MCHC RDW 17.5 H Plt Count Lymph % (Auto) Sebastian % (Auto) Lymph # Sebastian # Seg Neutrophils % Seg Neuts % (Manual) 71.0 H Lymphocytes % (Manual) Monocytes % (Manual) 8.0 H Nucleated RBC % Seg Neutrophils # Seg Neutrophils # Man 8.2 H Lymphocytes # (Manual) Monocytes # (Manual) 0.9 H PT INR D-Dimer Heparin Anti-Xa Level POC ABG pH ABG pH POC ABG pCO2 POC ABG pO2 ABG pO2 ABG HCO3 ABG O2 Saturation ABG Base Excess ABG Hemoglobin Oxyhemoglobin Sodium Potassium Chloride Carbon Dioxide BUN Creatinine Glucose POC Glucose 109 H 114 H Lactic Acid Calcium Ionized Calcium Phosphorus Magnesium Iron TIBC Ferritin Total Bilirubin Direct Bilirubin AST ALT Alkaline Phosphatase Total Creatine Kinase CK-MB (CK-2) Troponin T C-Reactive Protein Serum Total Protein Total Protein Albumin Ujcte-5-Tpkvssduq Ukunt-1-Zgzgevtua PEP Interpretation Triglycerides LDL Cholesterol Direct HDL Cholesterol Free T4 PTH Intact Urine WBC (Auto) Urine Creatinine Salicylates Acetaminophen Crossmatch 04/11/19 04/11/19 04/11/19 06:47 09:21 12:15 WBC RBC Hgb Hct MCV MCHC RDW Plt Count Lymph % (Auto) Sebastian % (Auto) Lymph # Sebastian # Seg Neutrophils % Seg Neuts % (Manual) Lymphocytes % (Manual) Monocytes % (Manual) Nucleated RBC % Seg Neutrophils # Seg Neutrophils # Man Lymphocytes # (Manual) Monocytes # (Manual) PT INR D-Dimer Heparin Anti-Xa Level POC ABG pH ABG pH POC ABG pCO2 POC ABG pO2 ABG pO2 ABG HCO3 ABG O2 Saturation ABG Base Excess ABG Hemoglobin Oxyhemoglobin Sodium Potassium 3.5 L Chloride Carbon Dioxide BUN 45 H Creatinine 6.0 H Glucose 113 H POC Glucose 106 H 109 H Lactic Acid Calcium Ionized Calcium Phosphorus Magnesium Iron TIBC Ferritin Total Bilirubin Direct Bilirubin AST ALT Alkaline Phosphatase Total Creatine Kinase CK-MB (CK-2) Troponin T C-Reactive Protein Serum Total Protein Total Protein Albumin Axrml-0-Goqsatvry Tkush-4-Myatpqgol PEP Interpretation Triglycerides LDL Cholesterol Direct HDL Cholesterol Free T4 PTH Intact Urine WBC (Auto) Urine Creatinine Salicylates Acetaminophen Crossmatch 04/11/19 04/12/19 04/12/19 18:42 12:13 23:52 WBC RBC Hgb Hct MCV MCHC RDW Plt Count Lymph % (Auto) Sebastian % (Auto) Lymph # Sebastian # Seg Neutrophils % Seg Neuts % (Manual) Lymphocytes % (Manual) Monocytes % (Manual) Nucleated RBC % Seg Neutrophils # Seg Neutrophils # Man Lymphocytes # (Manual) Monocytes # (Manual) PT INR D-Dimer Heparin Anti-Xa Level POC ABG pH ABG pH POC ABG pCO2 POC ABG pO2 ABG pO2 ABG HCO3 ABG O2 Saturation ABG Base Excess ABG Hemoglobin Oxyhemoglobin Sodium Potassium Chloride Carbon Dioxide BUN Creatinine Glucose POC Glucose 107 H 115 H 124 H Lactic Acid Calcium Ionized Calcium Phosphorus Magnesium Iron TIBC Ferritin Total Bilirubin Direct Bilirubin AST ALT Alkaline Phosphatase Total Creatine Kinase CK-MB (CK-2) Troponin T C-Reactive Protein Serum Total Protein Total Protein Albumin Cgslk-3-Llcccbeff Nxbei-5-Cwhqgeewz PEP Interpretation Triglycerides LDL Cholesterol Direct HDL Cholesterol Free T4 PTH Intact Urine WBC (Auto) Urine Creatinine Salicylates Acetaminophen Crossmatch 04/13/19 04/13/19 04/13/19 05:00 05:00 05:47 WBC 11.7 H RBC 2.97 L Hgb 8.8 L Hct 27.3 L MCV MCHC RDW 16.1 H Plt Count Lymph % (Auto) 9.5 L Sebastian % (Auto) 9.9 H Lymph # 1.1 L Sebastian # 1.2 H Seg Neutrophils % 78.6 H Seg Neuts % (Manual) Lymphocytes % (Manual) Monocytes % (Manual) Nucleated RBC % Seg Neutrophils # 9.2 H Seg Neutrophils # Man Lymphocytes # (Manual) Monocytes # (Manual) PT INR D-Dimer Heparin Anti-Xa Level POC ABG pH ABG pH POC ABG pCO2 POC ABG pO2 ABG pO2 ABG HCO3 ABG O2 Saturation ABG Base Excess ABG Hemoglobin Oxyhemoglobin Sodium Potassium 3.5 L Chloride Carbon Dioxide BUN 42 H Creatinine 4.6 H Glucose 106 H POC Glucose 107 H Lactic Acid Calcium 10.6 H D Ionized Calcium Phosphorus 5.90 H Magnesium Iron TIBC Ferritin Total Bilirubin Direct Bilirubin AST ALT Alkaline Phosphatase Total Creatine Kinase CK-MB (CK-2) Troponin T C-Reactive Protein Serum Total Protein Total Protein 5.8 L Albumin 2.5 L Mtaqo-1-Dqarfbdox Wjevr-6-Lfeddthgp PEP Interpretation Triglycerides LDL Cholesterol Direct HDL Cholesterol Free T4 PTH Intact Urine WBC (Auto) Urine Creatinine Salicylates Acetaminophen Crossmatch 04/13/19 04/14/19 04/14/19 17:32 00:00 03:55 WBC RBC Hgb Hct MCV MCHC RDW Plt Count Lymph % (Auto) Sebastian % (Auto) Lymph # Sebastian # Seg Neutrophils % Seg Neuts % (Manual) Lymphocytes % (Manual) Monocytes % (Manual) Nucleated RBC % Seg Neutrophils # Seg Neutrophils # Man Lymphocytes # (Manual) Monocytes # (Manual) PT INR D-Dimer Heparin Anti-Xa Level POC ABG pH ABG pH POC ABG pCO2 POC ABG pO2 ABG pO2 ABG HCO3 ABG O2 Saturation ABG Base Excess ABG Hemoglobin Oxyhemoglobin Sodium Potassium 3.0 L Chloride Carbon Dioxide BUN 30 H Creatinine 3.1 H Glucose POC Glucose 112 H 120 H Lactic Acid Calcium 10.8 H Ionized Calcium Phosphorus Magnesium Iron TIBC Ferritin Total Bilirubin Direct Bilirubin AST ALT Alkaline Phosphatase Total Creatine Kinase CK-MB (CK-2) Troponin T C-Reactive Protein Serum Total Protein Total Protein Albumin Onuub-4-Dlxajeoep Iicpx-8-Mqwubkutj PEP Interpretation Triglycerides LDL Cholesterol Direct HDL Cholesterol Free T4 PTH Intact Urine WBC (Auto) Urine Creatinine Salicylates Acetaminophen Crossmatch 04/14/19 04/14/19 04/15/19 11:56 23:28 05:11 WBC 13.0 H RBC 2.93 L Hgb 8.6 L Hct 26.5 L MCV MCHC RDW 16.5 H Plt Count Lymph % (Auto) 12.2 L Sebastian % (Auto) 9.1 H Lymph # Sebastian # 1.2 H Seg Neutrophils % 77.6 H Seg Neuts % (Manual) Lymphocytes % (Manual) Monocytes % (Manual) Nucleated RBC % Seg Neutrophils # 10.1 H Seg Neutrophils # Man Lymphocytes # (Manual) Monocytes # (Manual) PT INR D-Dimer Heparin Anti-Xa Level POC ABG pH ABG pH POC ABG pCO2 POC ABG pO2 ABG pO2 ABG HCO3 ABG O2 Saturation ABG Base Excess ABG Hemoglobin Oxyhemoglobin Sodium Potassium Chloride Carbon Dioxide BUN Creatinine Glucose POC Glucose 109 H 112 H Lactic Acid Calcium Ionized Calcium Phosphorus Magnesium Iron TIBC Ferritin Total Bilirubin Direct Bilirubin AST ALT Alkaline Phosphatase Total Creatine Kinase CK-MB (CK-2) Troponin T C-Reactive Protein Serum Total Protein Total Protein Albumin Lyixq-2-Cqrphuhsk Gwjam-7-Ddwxufaxa PEP Interpretation Triglycerides LDL Cholesterol Direct HDL Cholesterol Free T4 PTH Intact Urine WBC (Auto) Urine Creatinine Salicylates Acetaminophen Crossmatch 04/15/19 04/15/19 04/15/19 05:11 05:31 18:03 WBC RBC Hgb Hct MCV MCHC RDW Plt Count Lymph % (Auto) Sebastian % (Auto) Lymph # Sebastian # Seg Neutrophils % Seg Neuts % (Manual) Lymphocytes % (Manual) Monocytes % (Manual) Nucleated RBC % Seg Neutrophils # Seg Neutrophils # Man Lymphocytes # (Manual) Monocytes # (Manual) PT INR D-Dimer Heparin Anti-Xa Level POC ABG pH ABG pH POC ABG pCO2 POC ABG pO2 ABG pO2 ABG HCO3 ABG O2 Saturation ABG Base Excess ABG Hemoglobin Oxyhemoglobin Sodium Potassium 3.2 L Chloride Carbon Dioxide BUN 44 H Creatinine 3.6 H Glucose 106 H POC Glucose 110 H 121 H Lactic Acid Calcium 12.0 H Ionized Calcium Phosphorus 5.00 H Magnesium Iron TIBC Ferritin Total Bilirubin Direct Bilirubin AST ALT Alkaline Phosphatase Total Creatine Kinase CK-MB (CK-2) Troponin T C-Reactive Protein Serum Total Protein Total Protein Albumin Nxqvg-7-Pyylmztnf Azzrn-2-Rdmvyybwe PEP Interpretation Triglycerides LDL Cholesterol Direct HDL Cholesterol Free T4 PTH Intact Urine WBC (Auto) Urine Creatinine Salicylates Acetaminophen Crossmatch 04/16/19 04/16/19 04/17/19 05:07 05:07 04:15 WBC 12.6 H RBC 3.12 L Hgb 9.0 L Hct 28.2 L MCV MCHC RDW 16.6 H Plt Count Lymph % (Auto) 10.3 L Sebastian % (Auto) 9.8 H Lymph # Sebastian # 1.2 H Seg Neutrophils % 78.2 H Seg Neuts % (Manual) Lymphocytes % (Manual) Monocytes % (Manual) Nucleated RBC % Seg Neutrophils # 9.9 H Seg Neutrophils # Man Lymphocytes # (Manual) Monocytes # (Manual) PT INR D-Dimer Heparin Anti-Xa Level POC ABG pH ABG pH POC ABG pCO2 POC ABG pO2 ABG pO2 ABG HCO3 ABG O2 Saturation ABG Base Excess ABG Hemoglobin Oxyhemoglobin Sodium 147 H 150 H Potassium 3.5 L 3.1 L Chloride Carbon Dioxide 32 H BUN 54 H 65 H Creatinine 3.8 H 4.0 H Glucose 102 H 107 H POC Glucose Lactic Acid Calcium 11.7 H 12.0 H Ionized Calcium Phosphorus 5.40 H Magnesium Iron TIBC Ferritin Total Bilirubin Direct Bilirubin AST ALT Alkaline Phosphatase Total Creatine Kinase CK-MB (CK-2) Troponin T C-Reactive Protein 7.10 H Serum Total Protein Total Protein Albumin Dhggy-5-Fyfrlwmmt Yqygb-9-Uoasbmjrr PEP Interpretation Triglycerides LDL Cholesterol Direct HDL Cholesterol Free T4 PTH Intact Urine WBC (Auto) Urine Creatinine Salicylates Acetaminophen Crossmatch 04/17/19 04/17/19 04/17/19 04:15 06:05 12:49 WBC 15.8 H RBC 3.32 L Hgb 9.5 L Hct 29.9 L MCV MCHC RDW 16.9 H Plt Count Lymph % (Auto) 12.6 L Sebastian % (Auto) 11.1 H Lymph # Sebastian # 1.7 H Seg Neutrophils % 74.7 H Seg Neuts % (Manual) Lymphocytes % (Manual) Monocytes % (Manual) Nucleated RBC % Seg Neutrophils # 11.8 H Seg Neutrophils # Man Lymphocytes # (Manual) Monocytes # (Manual) PT INR D-Dimer Heparin Anti-Xa Level POC ABG pH ABG pH POC ABG pCO2 POC ABG pO2 ABG pO2 ABG HCO3 ABG O2 Saturation ABG Base Excess ABG Hemoglobin Oxyhemoglobin Sodium Potassium Chloride Carbon Dioxide BUN Creatinine Glucose POC Glucose 111 H 108 H Lactic Acid Calcium Ionized Calcium Phosphorus Magnesium Iron TIBC Ferritin Total Bilirubin Direct Bilirubin AST ALT Alkaline Phosphatase Total Creatine Kinase CK-MB (CK-2) Troponin T C-Reactive Protein Serum Total Protein Total Protein Albumin Rkmut-8-Qqchldomj Yhjfa-3-Fgpnjhhox PEP Interpretation Triglycerides LDL Cholesterol Direct HDL Cholesterol Free T4 PTH Intact Urine WBC (Auto) Urine Creatinine Salicylates Acetaminophen Crossmatch 04/18/19 04/18/19 04/18/19 00:23 04:41 04:41 WBC 19.4 H RBC 3.03 L Hgb 8.6 L Hct 27.5 L MCV MCHC 31 L RDW 16.9 H Plt Count Lymph % (Auto) Sebastian % (Auto) Lymph # Sebastian # Seg Neutrophils % Seg Neuts % (Manual) Lymphocytes % (Manual) Monocytes % (Manual) Nucleated RBC % Seg Neutrophils # Seg Neutrophils # Man Lymphocytes # (Manual) Monocytes # (Manual) PT INR D-Dimer Heparin Anti-Xa Level POC ABG pH ABG pH POC ABG pCO2 POC ABG pO2 ABG pO2 ABG HCO3 ABG O2 Saturation ABG Base Excess ABG Hemoglobin Oxyhemoglobin Sodium 152 H Potassium 3.0 L Chloride Carbon Dioxide BUN 80 H Creatinine 4.3 H Glucose 103 H POC Glucose 115 H Lactic Acid Calcium 11.4 H Ionized Calcium Phosphorus Magnesium Iron TIBC Ferritin Total Bilirubin Direct Bilirubin AST ALT Alkaline Phosphatase Total Creatine Kinase CK-MB (CK-2) Troponin T C-Reactive Protein Serum Total Protein Total Protein Albumin Xhmnw-5-Whklkkfeu Rjwim-5-Ujcrifkjm PEP Interpretation Triglycerides LDL Cholesterol Direct HDL Cholesterol Free T4 PTH Intact Urine WBC (Auto) Urine Creatinine Salicylates Acetaminophen Crossmatch 04/18/19 04/18/19 04/18/19 06:17 12:16 18:10 WBC RBC Hgb Hct MCV MCHC RDW Plt Count Lymph % (Auto) Sebastian % (Auto) Lymph # Sebastian # Seg Neutrophils % Seg Neuts % (Manual) Lymphocytes % (Manual) Monocytes % (Manual) Nucleated RBC % Seg Neutrophils # Seg Neutrophils # Man Lymphocytes # (Manual) Monocytes # (Manual) PT INR D-Dimer Heparin Anti-Xa Level POC ABG pH ABG pH POC ABG pCO2 POC ABG pO2 ABG pO2 ABG HCO3 ABG O2 Saturation ABG Base Excess ABG Hemoglobin Oxyhemoglobin Sodium Potassium Chloride Carbon Dioxide BUN Creatinine Glucose POC Glucose 124 H 119 H 111 H Lactic Acid Calcium Ionized Calcium Phosphorus Magnesium Iron TIBC Ferritin Total Bilirubin Direct Bilirubin AST ALT Alkaline Phosphatase Total Creatine Kinase CK-MB (CK-2) Troponin T C-Reactive Protein Serum Total Protein Total Protein Albumin Bjafw-6-Klfcldprj Iiwpd-9-Gkbmxiqde PEP Interpretation Triglycerides LDL Cholesterol Direct HDL Cholesterol Free T4 PTH Intact Urine WBC (Auto) Urine Creatinine Salicylates Acetaminophen Crossmatch 04/19/19 04/19/19 04/20/19 03:49 05:27 09:09 WBC RBC Hgb Hct MCV MCHC RDW Plt Count Lymph % (Auto) Sebastian % (Auto) Lymph # Sebastian # Seg Neutrophils % Seg Neuts % (Manual) Lymphocytes % (Manual) Monocytes % (Manual) Nucleated RBC % Seg Neutrophils # Seg Neutrophils # Man Lymphocytes # (Manual) Monocytes # (Manual) PT INR D-Dimer Heparin Anti-Xa Level POC ABG pH ABG pH POC ABG pCO2 POC ABG pO2 ABG pO2 ABG HCO3 ABG O2 Saturation ABG Base Excess ABG Hemoglobin Oxyhemoglobin Sodium 147 H 150 H Potassium 3.3 L Chloride 108.9 H Carbon Dioxide BUN 45 H 70 H Creatinine 2.9 H 4.1 H Glucose 105 H POC Glucose 124 H Lactic Acid Calcium 10.6 H 11.6 H Ionized Calcium Phosphorus Magnesium Iron TIBC Ferritin Total Bilirubin Direct Bilirubin AST ALT Alkaline Phosphatase Total Creatine Kinase CK-MB (CK-2) Troponin T C-Reactive Protein Serum Total Protein Total Protein Albumin Denod-3-Rfbnjfmku Tuczc-1-Homnrzvmu PEP Interpretation Triglycerides LDL Cholesterol Direct HDL Cholesterol Free T4 PTH Intact Urine WBC (Auto) Urine Creatinine Salicylates Acetaminophen Crossmatch 04/20/19 04/20/19 04/21/19 12:29 18:45 01:34 WBC RBC Hgb Hct MCV MCHC RDW Plt Count Lymph % (Auto) Sebastian % (Auto) Lymph # Sebastian # Seg Neutrophils % Seg Neuts % (Manual) Lymphocytes % (Manual) Monocytes % (Manual) Nucleated RBC % Seg Neutrophils # Seg Neutrophils # Man Lymphocytes # (Manual) Monocytes # (Manual) PT INR D-Dimer Heparin Anti-Xa Level POC ABG pH ABG pH POC ABG pCO2 POC ABG pO2 ABG pO2 ABG HCO3 ABG O2 Saturation ABG Base Excess ABG Hemoglobin Oxyhemoglobin Sodium Potassium Chloride Carbon Dioxide BUN 40 H Creatinine 2.6 H Glucose 104 H POC Glucose 131 H 134 H Lactic Acid Calcium 11.0 H Ionized Calcium Phosphorus Magnesium Iron TIBC Ferritin Total Bilirubin Direct Bilirubin AST ALT Alkaline Phosphatase Total Creatine Kinase CK-MB (CK-2) Troponin T C-Reactive Protein Serum Total Protein Total Protein Albumin Eirvy-3-Iofpcjgaw Pclzc-5-Lbabqwzqh PEP Interpretation Triglycerides LDL Cholesterol Direct HDL Cholesterol Free T4 PTH Intact Urine WBC (Auto) Urine Creatinine Salicylates Acetaminophen Crossmatch 04/21/19 04/21/19 04/22/19 04:22 04:22 04:24 WBC 14.2 H 14.3 H RBC 3.02 L 3.57 L Hgb 8.7 L 10.1 L Hct 27.2 L 32.1 L MCV MCHC RDW 16.7 H 17.2 H Plt Count Lymph % (Auto) Sebastian % (Auto) Lymph # Sebastian # Seg Neutrophils % Seg Neuts % (Manual) Lymphocytes % (Manual) Monocytes % (Manual) Nucleated RBC % Seg Neutrophils # Seg Neutrophils # Man Lymphocytes # (Manual) Monocytes # (Manual) PT INR D-Dimer Heparin Anti-Xa Level POC ABG pH ABG pH POC ABG pCO2 POC ABG pO2 ABG pO2 ABG HCO3 ABG O2 Saturation ABG Base Excess ABG Hemoglobin Oxyhemoglobin Sodium Potassium Chloride Carbon Dioxide BUN Creatinine Glucose POC Glucose Lactic Acid Calcium Ionized Calcium Phosphorus Magnesium Iron TIBC Ferritin Total Bilirubin Direct Bilirubin AST ALT Alkaline Phosphatase Total Creatine Kinase CK-MB (CK-2) Troponin T C-Reactive Protein Serum Total Protein 5.7 L Total Protein Albumin 2.3 L Evvmc-8-Dlwyeupmo 0.5 H Zzvuv-9-Eqoxmfoks 1.0 H PEP Interpretation see below H Triglycerides LDL Cholesterol Direct HDL Cholesterol Free T4 PTH Intact Urine WBC (Auto) Urine Creatinine Salicylates Acetaminophen Crossmatch 04/22/19 04/22/19 04/22/19 04:24 06:37 11:57 WBC RBC Hgb Hct MCV MCHC RDW Plt Count Lymph % (Auto) Sebastian % (Auto) Lymph # Sebastian # Seg Neutrophils % Seg Neuts % (Manual) Lymphocytes % (Manual) Monocytes % (Manual) Nucleated RBC % Seg Neutrophils # Seg Neutrophils # Man Lymphocytes # (Manual) Monocytes # (Manual) PT INR D-Dimer Heparin Anti-Xa Level POC ABG pH ABG pH POC ABG pCO2 POC ABG pO2 ABG pO2 ABG HCO3 ABG O2 Saturation ABG Base Excess ABG Hemoglobin Oxyhemoglobin Sodium Potassium Chloride Carbon Dioxide BUN 54 H Creatinine 3.5 H Glucose POC Glucose 113 H 110 H Lactic Acid Calcium 11.4 H Ionized Calcium Phosphorus Magnesium Iron TIBC Ferritin Total Bilirubin Direct Bilirubin AST ALT Alkaline Phosphatase Total Creatine Kinase CK-MB (CK-2) Troponin T C-Reactive Protein Serum Total Protein Total Protein Albumin Uofkh-1-Owxewpjmv Vfxxi-2-Sckesvsxv PEP Interpretation Triglycerides LDL Cholesterol Direct HDL Cholesterol Free T4 PTH Intact Urine WBC (Auto) Urine Creatinine Salicylates Acetaminophen Crossmatch 04/22/19 04/23/19 04/23/19 18:33 04:06 04:06 WBC 16.1 H RBC 3.36 L Hgb 9.8 L Hct 30.8 L MCV MCHC RDW 17.7 H Plt Count Lymph % (Auto) 9.9 L Sebastian % (Auto) Lymph # Sebastian # Seg Neutrophils % 84.2 H Seg Neuts % (Manual) Lymphocytes % (Manual) Monocytes % (Manual) Nucleated RBC % Seg Neutrophils # 13.6 H Seg Neutrophils # Man Lymphocytes # (Manual) Monocytes # (Manual) PT INR D-Dimer Heparin Anti-Xa Level POC ABG pH ABG pH POC ABG pCO2 POC ABG pO2 ABG pO2 ABG HCO3 ABG O2 Saturation ABG Base Excess ABG Hemoglobin Oxyhemoglobin Sodium Potassium Chloride Carbon Dioxide BUN 59 H Creatinine 3.8 H Glucose POC Glucose 120 H Lactic Acid Calcium 12.3 H* Ionized Calcium Phosphorus 5.70 H Magnesium Iron TIBC Ferritin Total Bilirubin Direct Bilirubin AST ALT Alkaline Phosphatase Total Creatine Kinase CK-MB (CK-2) Troponin T C-Reactive Protein Serum Total Protein Total Protein Albumin 3.2 L Oqqqw-1-Vnonafpvq Myqju-7-Qbztjpqvq PEP Interpretation Triglycerides LDL Cholesterol Direct HDL Cholesterol Free T4 PTH Intact Urine WBC (Auto) Urine Creatinine Salicylates Acetaminophen Crossmatch 04/23/19 04/24/19 04/24/19 18:06 04:12 04:12 WBC 18.0 H RBC 3.46 L Hgb 9.8 L Hct 31.2 L MCV MCHC 31 L RDW 17.5 H Plt Count Lymph % (Auto) 11.1 L Sebastian % (Auto) Lymph # Sebastian # Seg Neutrophils % 81.9 H Seg Neuts % (Manual) Lymphocytes % (Manual) Monocytes % (Manual) Nucleated RBC % Seg Neutrophils # 14.7 H Seg Neutrophils # Man Lymphocytes # (Manual) Monocytes # (Manual) PT INR D-Dimer Heparin Anti-Xa Level POC ABG pH ABG pH POC ABG pCO2 POC ABG pO2 ABG pO2 ABG HCO3 ABG O2 Saturation ABG Base Excess ABG Hemoglobin Oxyhemoglobin Sodium Potassium Chloride Carbon Dioxide BUN 56 H Creatinine 3.6 H Glucose POC Glucose 124 H Lactic Acid Calcium 12.6 H* Ionized Calcium Phosphorus Magnesium Iron TIBC Ferritin Total Bilirubin Direct Bilirubin AST ALT Alkaline Phosphatase Total Creatine Kinase CK-MB (CK-2) Troponin T C-Reactive Protein Serum Total Protein Total Protein Albumin 3.2 L Hjmrt-0-Aztixszkp Grxem-1-Spskrbozc PEP Interpretation Triglycerides LDL Cholesterol Direct HDL Cholesterol Free T4 PTH Intact Urine WBC (Auto) Urine Creatinine Salicylates Acetaminophen Crossmatch 04/24/19 04/24/19 04/25/19 06:21 11:47 05:58 WBC 18.0 H RBC 2.98 L Hgb 8.3 L Hct 26.5 L MCV MCHC 31 L RDW 17.9 H Plt Count Lymph % (Auto) 10.1 L Sebastian % (Auto) Lymph # Sebastian # 0.9 H Seg Neutrophils % 82.8 H Seg Neuts % (Manual) Lymphocytes % (Manual) Monocytes % (Manual) Nucleated RBC % Seg Neutrophils # 15.0 H Seg Neutrophils # Man Lymphocytes # (Manual) Monocytes # (Manual) PT INR D-Dimer Heparin Anti-Xa Level POC ABG pH ABG pH POC ABG pCO2 POC ABG pO2 ABG pO2 ABG HCO3 ABG O2 Saturation ABG Base Excess ABG Hemoglobin Oxyhemoglobin Sodium Potassium Chloride Carbon Dioxide BUN Creatinine Glucose POC Glucose 132 H 106 H Lactic Acid Calcium Ionized Calcium Phosphorus Magnesium Iron TIBC Ferritin Total Bilirubin Direct Bilirubin AST ALT Alkaline Phosphatase Total Creatine Kinase CK-MB (CK-2) Troponin T C-Reactive Protein Serum Total Protein Total Protein Albumin Besyc-6-Quoxuungo Lvtrq-2-Jcsxyhyhq PEP Interpretation Triglycerides LDL Cholesterol Direct HDL Cholesterol Free T4 PTH Intact Urine WBC (Auto) Urine Creatinine Salicylates Acetaminophen Crossmatch 04/25/19 04/26/19 04/26/19 05:58 05:57 06:08 WBC RBC Hgb Hct MCV MCHC RDW Plt Count Lymph % (Auto) Sebastian % (Auto) Lymph # Sebastian # Seg Neutrophils % Seg Neuts % (Manual) Lymphocytes % (Manual) Monocytes % (Manual) Nucleated RBC % Seg Neutrophils # Seg Neutrophils # Man Lymphocytes # (Manual) Monocytes # (Manual) PT INR D-Dimer Heparin Anti-Xa Level POC ABG pH ABG pH POC ABG pCO2 POC ABG pO2 ABG pO2 ABG HCO3 ABG O2 Saturation ABG Base Excess ABG Hemoglobin Oxyhemoglobin Sodium Potassium 3.2 L Chloride Carbon Dioxide BUN 52 H 48 H Creatinine 3.2 H 2.9 H Glucose 108 H 112 H POC Glucose 109 H Lactic Acid Calcium 11.4 H 12.5 H* Ionized Calcium Phosphorus 5.90 H Magnesium Iron TIBC Ferritin Total Bilirubin Direct Bilirubin AST ALT Alkaline Phosphatase Total Creatine Kinase CK-MB (CK-2) Troponin T C-Reactive Protein Serum Total Protein Total Protein Albumin 3.0 L Lvsvz-1-Sehmooevt Lvajm-4-Kjmloaibl PEP Interpretation Triglycerides LDL Cholesterol Direct HDL Cholesterol Free T4 PTH Intact Urine WBC (Auto) Urine Creatinine Salicylates Acetaminophen Crossmatch 04/26/19 04/26/19 04/27/19 07:22 13:39 05:05 WBC 11.9 H RBC 3.01 L Hgb 8.6 L Hct 26.3 L MCV MCHC RDW 17.6 H Plt Count Lymph % (Auto) 11.9 L Sebastian % (Auto) Lymph # Sebastian # Seg Neutrophils % 78.3 H Seg Neuts % (Manual) Lymphocytes % (Manual) Monocytes % (Manual) Nucleated RBC % Seg Neutrophils # 9.4 H Seg Neutrophils # Man Lymphocytes # (Manual) Monocytes # (Manual) PT INR D-Dimer Heparin Anti-Xa Level POC ABG pH ABG pH POC ABG pCO2 POC ABG pO2 ABG pO2 ABG HCO3 ABG O2 Saturation ABG Base Excess ABG Hemoglobin Oxyhemoglobin Sodium Potassium Chloride Carbon Dioxide BUN 46 H Creatinine 2.8 H Glucose POC Glucose Lactic Acid Calcium > 13.0 H* 12.2 H* Ionized Calcium Phosphorus Magnesium Iron TIBC Ferritin Total Bilirubin Direct Bilirubin AST ALT Alkaline Phosphatase Total Creatine Kinase CK-MB (CK-2) Troponin T C-Reactive Protein Serum Total Protein Total Protein Albumin Flwfq-1-Tkncgjdgz Qemdg-9-Pfcekqtda PEP Interpretation Triglycerides LDL Cholesterol Direct HDL Cholesterol Free T4 PTH Intact Urine WBC (Auto) Urine Creatinine Salicylates Acetaminophen Crossmatch 04/27/19 05:05 WBC RBC Hgb Hct MCV MCHC RDW Plt Count Lymph % (Auto) Sebastian % (Auto) Lymph # Sebastian # Seg Neutrophils % Seg Neuts % (Manual) Lymphocytes % (Manual) Monocytes % (Manual) Nucleated RBC % Seg Neutrophils # Seg Neutrophils # Man Lymphocytes # (Manual) Monocytes # (Manual) PT INR D-Dimer Heparin Anti-Xa Level POC ABG pH ABG pH POC ABG pCO2 POC ABG pO2 ABG pO2 ABG HCO3 ABG O2 Saturation ABG Base Excess ABG Hemoglobin Oxyhemoglobin Sodium 136 L Potassium 3.2 L Chloride Carbon Dioxide BUN 40 H Creatinine 2.5 H Glucose 113 H POC Glucose Lactic Acid Calcium 12.3 H* Ionized Calcium Phosphorus Magnesium Iron TIBC Ferritin Total Bilirubin Direct Bilirubin AST ALT Alkaline Phosphatase Total Creatine Kinase CK-MB (CK-2) Troponin T C-Reactive Protein Serum Total Protein Total Protein 6.2 L Albumin 2.8 L Brzwr-6-Citwryixm Siwjq-8-Ioctbfcgt PEP Interpretation Triglycerides LDL Cholesterol Direct HDL Cholesterol Free T4 PTH Intact Urine WBC (Auto) Urine Creatinine Salicylates Acetaminophen Crossmatch Allied health notes reviewed: nursing
--- NOTE | 2019-04-27 14:32 | Progress Note ---
Assessment and Plan Cultures: 03/16/2019 sputum: salivary contamination 03/16/2019 Blood culture: no growth 03/17/2019 Urine culture no growth 03/17/2019 throat culture: no growth 03/26/2019 Blood culture: no growth 03/27/2019 Blood culture negative. 04/04/2019 blood culture NGTD 04/05/2019 urine culture: no growth 04/11/2019 blood culture: no growth 04/15/2019 blood culture: no growth Assessment: 43y/o male with possible psych history admitted on 03/16/2019 with: 1) Septic shock: Resolved. Fever after right IJ exchanged overwire on 03/27, fever had improved. Brain MRI showed no acute intracranial abnormality, mild nonspecific chronic white matter changes, fluid throughout the sinuses and mastoid air cells. Venous US + right IJ DVT. Completed empiric Cefepime x 10 days on 04/06/2019. Initial septic shock - Possible Infectious etiology v/s possibility of Neuroleptic Malignant Syndrome given psych history, high fever of 105F and extremely elevated CPK of >100K. Unclear if he was on any psych med. From ID standpoint, we will continue broad coverage for acute bacterial meningitis, tick borne illness, aspiration pneumonia. Blood culture negative UA with mild pyuria. HIV rapid negative. Strep A rapid ag negative. No obvious infectious source identified yet. 2) High fevers with elevated WBC: ?drug fever v/s infected HD cath. Blood cultures have remained negative. CXR with no obvious pneumonia. Fevers have resolved but white count has elevated, now stable. No new symptoms to explain, will follow. 3) Probable aspiration pneumonia, fluid overload, acute resp failure: on oxygen. Previously completed abx. 4) Acute encephalopathy: improving, awake, alert, calm. 5) Acute renal failure: renally dosing all abx, now on iHD. 6) Elevated LFTs/shock liver: resolved. 7) Thrombocytopenia: platelet normalized. 8) Rhabdomyolysis: CK normalized. 9) Multiple superficial wounds: do not appear infected. Continue wound care. Recommendations: Stop antibiotics today and monitor closely. Low bar for restarting. LANDY, complement levels within normal limits. Continue wound care Katie Palmer MD [facility], [facility] ([facility]) M: [phone] O: [phone] F: [phone] Subjective Date of service: 04/27/19 Principal diagnosis: Septic Shock; Ac. hypoxemic resp failure; Dannie. PNA; Rhabdomyolysis; RUBEN Interval history: Improved leukocytosis. Remains afebrile. Objective - Exam Narrative Exam: General appearance: alert, awake Eyes: pupils dannie contracted poorly reactive, no jaundice HENT: Atraumatic; oropharynx with ETT/OGT Neck: no JVD Lungs:distant BS CV: RRR Abdomen: Soft, non-tender Extremities: marked dannie leg edema/arm edema Skin:no rash, +scrotal edema Psych: NAD Neuro: Normal strength - Constitutional Vitals: Vital Signs Temp Pulse Resp BP Pulse Ox 98.0 F 75 18 129/74 95 04/27/19 06:00 04/27/19 06:00 04/27/19 06:00 04/27/19 06:00 04/27/19 09:36 Temperature -Last 24 Hours Temperature 98.0 F Temperature 98.0 F Temperature 97.9 F - Labs CBC & Chem 7: 04/27/19 05:05 04/27/19 05:05 Labs: Abnormal lab results 04/26/19 04/27/19 04/27/19 Range/Units 13:39 05:05 05:05 WBC 11.9 H (4.5-11.0) K/mm3 RBC 3.01 L (3.65-5.03) M/mm3 Hgb 8.6 L (11.8-15.2) gm/dl Hct 26.3 L (35.5-45.6) % RDW 17.6 H (13.2-15.2) % Lymph % (Auto) 11.9 L (13.4-35.0) % Seg Neutrophils % 78.3 H (40.0-70.0) % Seg Neutrophils # 9.4 H (1.8-7.7) K/mm3 Sodium 136 L (137-145) mmol/L Potassium 3.2 L (3.6-5.0) mmol/L BUN 40 H (9-20) mg/dL Creatinine 2.5 H (0.8-1.5) mg/dL Glucose 113 H (75-100) mg/dL Calcium 12.2 H* 12.3 H* (8.4-10.2) mg/dL Total Protein 6.2 L (6.3-8.2) g/dL Albumin 2.8 L (3.9-5) g/dL
--- NOTE | 2019-04-27 16:03 | Progress Note ---
Assessment and Plan Assessment and plan: Patient is a 43-year-old man with history of GERD, obesity and mental illness, who presented to [facility] ED on 03/16/2019 with altered mental status. He is visiting from [place] and was brought in by his friend. As per records per family he has been homeless [address] [place]. When he came to the ER, he was unable to speak or follow commands, in the ER he was found to have SVT with heart rate in the 250s. The patient was shocked and medicated. Also was confused, and had trouble protecting his airway; therefore, he was then intubated. He has had a prolonged hospital course. During this hospital course, he was found to have sepsis with septic shock, acute resp failure, rhabdomyolysis, RUBEN, and multisystem organ failure, toxic metabolic encephalopathy. He was started on hemodialysis-still getting dialysis. patient is much improved. Still has recurrent fever, followed by ID Physician. Patient now on Azactam, Zyvox. He passed his swallow test started on mechanical soft diet today 04/21/19. * Initial rhythm appeared to be SVT * Per friend patient complaining of feeling ill and has some left eye discharge, cold, clammy and diaphrietic by the time arrived to the hospital. Also mentions a possibility of a right axilla abscess. The and went to stay with his girlfriend the last 2 days and this morning when he saw the patient he was ill-appearing but sleeping. * Currently on 4 pressors * Start on Elizabeth culture including coverage for possible Meningitis CHEST 1 VIEW . IMPRESSION: 1. Endotracheal tube in good position. 2. Nasogastric tube doubled back on itself at the level of the salina with the tip not seen. The tube will need to be removed/reposition. CT of the chest, abdomen and pelvis without contrast . IMPRESSION: 1. Parenchymal disease in both lower lobes posteromedially may be related to aspiration pneumonia. 2. Moderately dilated small bowel bowel loops in the mid to upper abdomen anteriorly with mild associated bowel wall thickening. Locali zed enteritis and small bowel ischemia should be considered. CT head/brain wo contrast. IMPRESSION: 1. Some component of diffuse cerebral edema cannot be excluded. However, this finding may be artifactual secondary to patient positioning. Close follow-up is recommended. No definitive signs of herniation or large territorial infarct at this time. 2. Otherwise, no focal mass, hemorrhage, hydrocephalus, or large infarct seen. Acute hypoxic respiratory failure. Was intubated, now extubated. Now on Room air. Continue BiPAP as clinically indicated. SVT with Polymorphic Vtach/Atrial fibrillation. Continue Metoprolol. Cardiology following. No systemic AC regarding AFib in setting of anemia, thrombocytopenia, GI bleed. Acute blood loss anemia. Patient with GI bleed secondary to peptic ulcer disease. EGD completed per GI. Continue PRBCs as needed. GI bleed/peptic ulcer disease. Continue PPI. Transfuse PRBCs as needed. Sepsis/septic shock. Continue antibiotics per ID. Now on Zyvox and Azactam Right Axillary cellulitis/Suspect Aspiration pneumonia/Acute Cystitis: Antibiotics stopped. Fever, recurrent- Improved ID following Severe Metabolic Acidosis- Resolved Hypercalcemia: Slight improvement. 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 Elevated LFTs improved. Viral hepatitis panel negative Acute Kidney Failure secondary to ATN ANURIC. Patient still on hemodialysis. Patient was started on hemodialysis on 03/18/19 due to worsening metabolic acido sis and hyperkalemia. Baseline renal function is unknown. CT abdomen was negative for obstructive nephropathy. Avoid nephrotoxic agents. Continue hemodialysis per nephrology. Toxic metabolic encephalopathy. Brain MRI showed no acute intracranial abnormality, mild nonspecific chronic white matter changes, fluid throughout the sinuses and mastoid air cells. Swelling both upper ext L>R Doppler US : no DVT LUE Repeat doppler Continue wound care Patient recieved fluids, will give calcium Hypokalemia. Correted Replete potassium as needed. Hypernatremia. Follow-up BMP, Nephrology following Now resolved Thrombocytopenia, Presume DIC. Etiology likely secondary to sepsis. Resolved. Rhabdomyolysis. CK normalized. Full code status Continue aggressive PT. will obtain Psych consult given the hallucination History Interval history: Patient seen and examined, no new complaints, still very lethargic. no further hallucination, noted edema of the left arm. dressing still in place Hospitalist Physical - Physical exam Narrative exam: Constitutional: well-developed. mild distress, confused, temporal wasting, lethargic Head: Normocephalic atraumatic Eyes: Pupils are equal round and reactive to light Mouth: Moist mucous membranes. Neck: Supple no thyromegaly. No bruit. No JVD Heart: Irregularly irregular. No rubs murmurs or gallop Lungs: Clear to auscultation bilaterally. no rales or rhonchi Abdomen: Soft, nontender. Bowel sound are present. Extremities: left upper ext edema, dressing in place. no cyanosis, no clubbing. Neuro: Alert oriented Oriented x2. No focal sensory or motor deficit. Skin: No rashes or hyperpigmented spots Musculoskeletal system: No joint pain or swelling Hematological: No petechia or subcutanous hemorrhages. Immunological: No multiple septic spots on the skin Psychiatry: Euthymic. Calm. ANXIOUS - Constitutional Vitals: Temp Pulse Resp BP Pulse Ox 98.0 F 75 18 129/74 95 04/27/19 06:00 04/27/19 06:00 04/27/19 06:00 04/27/19 06:00 04/27/19 09:36 General appearance: Present: obese Results - Labs CBC & Chem 7: 04/27/19 05:05 04/27/19 05:05 Labs: Laboratory Last Values WBC 11.9 K/mm3 (4.5-11.0) H 04/27/19 05:05 RBC 3.01 M/mm3 (3.65-5.03) L 04/27/19 05:05 Hgb 8.6 gm/dl (11.8-15.2) L 04/27/19 05:05 Hct 26.3 % (35.5-45.6) L 04/27/19 05:05 MCV 87 fl (84-94) 04/27/19 05:05 MCH 29 pg (28-32) 04/27/19 05:05 MCHC 33 % (32-34) 04/27/19 05:05 RDW 17.6 % (13.2-15.2) H 04/27/19 05:05 Plt Count 397 K/mm3 (140-440) 04/27/19 05:05 Lymph % (Auto) 11.9 % (13.4-35.0) L 04/27/19 05:05 [place] % (Auto) 5.3 % (0.0-7.3) 04/27/19 05:05 Eos % (Auto) 3.7 % (0.0-4.3) 04/27/19 05:05 Baso % (Auto) 0.8 % (0.0-1.8) 04/27/19 05:05 Lymph # 1.4 K/mm3 (1.2-5.4) 04/27/19 05:05 [place] # 0.6 K/mm3 (0.0-0.8) 04/27/19 05:05 Eos # 0.4 K/mm3 (0.0-0.4) 04/27/19 05:05 Baso # 0.1 K/mm3 (0.0-0.1) 04/27/19 05:05 Add Manual Diff Complete 04/11/19 04:16 Total Counted 100 04/11/19 04:16 Seg Neutrophils % 78.3 % (40.0-70.0) H 04/27/19 05:05 Seg Neuts % (Manual) 71.0 % (40.0-70.0) H 04/11/19 04:16 Band Neutrophils % 1.0 % 04/11/19 04:16 Lymphocytes % (Manual) 17.0 % (13.4-35.0) 04/11/19 04:16 Reactive Lymphs % (Man) 0 % 04/11/19 04:16 Monocytes % (Manual) 8.0 % (0.0-7.3) H 04/11/19 04:16 Eosinophils % (Manual) 2.0 % (0.0-4.3) 04/11/19 04:16 Basophils % (Manual) 1.0 % (0.0-1.8) 04/11/19 04:16 Metamyelocytes % 0 % 04/11/19 04:16 Myelocytes % 0 % 04/11/19 04:16 Promyelocytes % 0 % 04/11/19 04:16 Blast Cells % 0 % 04/11/19 04:16 Nucleated RBC % Not Reportable 04/11/19 04:16 Seg Neutrophils # 9.4 K/mm3 (1.8-7.7) H 04/27/19 05:05 Seg Neutrophils # Man 8.2 K/mm3 (1.8-7.7) H 04/11/19 04:16 Band Neutrophils # 0.1 K/mm3 04/11/19 04:16 Lymphocytes # (Manual) 2.0 K/mm3 (1.2-5.4) 04/11/19 04:16 Abs React Lymphs (Man) 0.0 K/mm3 04/11/19 04:16 Monocytes # (Manual) 0.9 K/mm3 (0.0-0.8) H 04/11/19 04:16 Eosinophils # (Manual) 0.2 K/mm3 (0.0-0.4) 04/11/19 04:16 Basophils # (Manual) 0.1 K/mm3 (0.0-0.1) 04/11/19 04:16 Metamyelocytes # 0.0 K/mm3 04/11/19 04:16 Myelocytes # 0.0 K/mm3 04/11/19 04:16 Promyelocytes # 0.0 K/mm3 04/11/19 04:16 Blast Cells # 0.0 K/mm3 04/11/19 04:16 WBC Morphology Not Reportable 04/11/19 04:16 Hypersegmented Neuts Not Reportable 04/11/19 04:16 Hyposegmented Neuts Not Reportable 04/11/19 04:16 Hypogranular Neuts Not Reportable 04/11/19 04:16 Smudge Cells Not Reportable 04/11/19 04:16 Toxic Granulation Not Reportable 04/11/19 04:16 Toxic Vacuolation Not Reportable 04/11/19 04:16 Dohle Bodies Not Reportable 04/11/19 04:16 Pelger-Huet Anomaly Not Reportable 04/11/19 04:16 Joyce Rods Not Reportable 04/11/19 04:16 Platelet Estimate Consistent w auto 04/11/19 04:16 Clumped Platelets Not Reportable 04/11/19 04:16 Plt Clumps, EDTA Not Reportable 04/11/19 04:16 Large Platelets Not Reportable 04/11/19 04:16 Giant Platelets Not Reportable 04/11/19 04:16 Platelet Satelliting Not Reportable 04/11/19 04:16 Plt Morphology Comment Not Reportable 04/11/19 04:16 RBC Morphology Not Reportable 04/11/19 04:16 Dimorphic RBCs Not Reportable 04/11/19 04:16 Polychromasia Not Reportable 04/11/19 04:16 Hypochromasia Not Reportable 04/11/19 04:16 Poikilocytosis Not Reportable 04/11/19 04:16 Anisocytosis Rare 04/11/19 04:16 Microcytosis Rare 04/11/19 04:16 Macrocytosis Not Reportable 04/11/19 04:16 Spherocytes Not Reportable 04/11/19 04:16 Pappenheimer Bodies Not Reportable 04/11/19 04:16 Sickle Cells Not Reportable 04/11/19 04:16 Target Cells Not Reportable 04/11/19 04:16 Tear Drop Cells Not Reportable 04/11/19 04:16 Ovalocytes Not Reportable 04/11/19 04:16 Stomatocytes Few 03/26/19 Unknown Helmet Cells Not Reportable 04/11/19 04:16 [place] Bodies Not Reportable 04/11/19 04:16 [place] Rings Not Reportable 04/11/19 04:16 [place] Cells Not Reportable 04/11/19 04:16 Bite Cells Not Reportable 04/11/19 04:16 Crenated Cell Not Reportable 04/11/19 04:16 Elliptocytes Not Reportable 04/11/19 04:16 Acanthocytes (Spur) Not Reportable 04/11/19 04:16 Rouleaux Not Reportable 04/11/19 04:16 Hemoglobin C Crystals Not Reportable 04/11/19 04:16 Schistocytes Not Reportable 04/11/19 04:16 Malaria parasites Not Reportable 04/11/19 04:16 Phil Bodies Not Reportable 04/11/19 04:16 Hem Pathologist Commnt No 04/11/19 04:16 PT 15.3 Sec. (12.2-14.9) H 03/29/19 11:48 INR 1.24 (0.87-1.13) H 03/29/19 11:48 APTT 26.6 Sec. (24.2-36.6) 03/28/19 12:00 Fibrinogen 226 mg/dl (211-480) 03/28/19 12:00 D-Dimer 4845.98 ng/mlDDU (0-234) H 03/28/19 12:00 Heparin Anti-Xa Level 0.23 U.I./ml (0.3-0.7) L 03/28/19 05:13 POC ABG pH 7.401 (7.35-7.45) 04/07/19 12:57 ABG pH 7.388 pH Units (7.350-7.450) 04/06/19 05:20 POC ABG pCO2 41.5 (35-45) 04/07/19 12:57 ABG pCO2 38.5 mm Hg 04/06/19 05:20 POC ABG pO2 107 (80-105) H 04/07/19 12:57 ABG pO2 104.0 mm Hg (80.0-90.0) H 04/06/19 05:20 POC ABG HCO3 25.7 (22-26 mml/L) 04/07/19 12:57 ABG HCO3 22.6 mmol/L (20.0-26.0) 04/06/19 05:20 POC ABG Total CO2 27 (23-27mmol/L) 04/07/19 12:57 POC ABG O2 Sat 98 04/07/19 12:57 ABG O2 Saturation 97.8 % (95.0-99.0) 04/06/19 05:20 ABG O2 Content 10.0 (0.0-44) 04/06/19 05:20 POC ABG Base Excess 1 ((-2) - (+3)mmol/L) 04/07/19 12:57 ABG Base Excess -2.1 mmol/L (-2.0-3.0) L 04/06/19 05:20 ABG Hemoglobin 7.3 gm/dl (14.0-18.0) L 04/06/19 05:20 ABG Carboxyhemoglobin 1.7 % (0.0-5.0) 04/06/19 05:20 ABG Methemoglobin 0.6 % (0.0-1.5) 04/06/19 05:20 Oxyhemoglobin 95.5 % (95.0-99.0) 04/06/19 05:20 FiO2 30 % 04/07/19 12:57 Sodium 136 mmol/L (137-145) L 04/27/19 05:05 Potassium 3.2 mmol/L (3.6-5.0) L 04/27/19 05:05 Chloride 98.9 mmol/L (98-107) 04/27/19 05:05 Carbon Dioxide 24 mmol/L (22-30) 04/27/19 05:05 Anion Gap 16 mmol/L 04/27/19 05:05 BUN 40 mg/dL (9-20) H 04/27/19 05:05 Creatinine 2.5 mg/dL (0.8-1.5) H 04/27/19 05:05 Estimated GFR 28 ml/min 04/27/19 05:05 BUN/Creatinine Ratio 16 % 04/27/19 05:05 Glucose 113 mg/dL (75-100) H 04/27/19 05:05 POC Glucose 85 (70-105) 04/27/19 12:31 Lactic Acid 1.90 mmol/L (0.7-2.0) 03/21/19 21:31 Calcium 12.3 mg/dL (8.4-10.2) H* 04/27/19 05:05 Ionized Calcium 3.7 mg/dL (4.8-5.6) L 03/30/19 12:09 Phosphorus 5.90 mg/dL (2.5-4.5) H 04/26/19 05:57 Magnesium 1.90 mg/dL (1.7-2.3) 04/26/19 05:57 Iron 26 ug/dL (49-181) L 04/02/19 05:03 TIBC 138 mcg/dL (250-450) L 04/02/19 05:03 Ferritin 607.0 ng/mL (13.0-400.0) H 04/02/19 05:03 Total Bilirubin 0.40 mg/dL (0.1-1.2) 04/27/19 05:05 Direct Bilirubin 0.4 mg/dL (0-0.2) H 03/31/19 08:20 Indirect Bilirubin 0.1 mg/dL 03/31/19 08:20 AST 14 units/L (5-40) 04/27/19 05:05 ALT 14 units/L (7-56) 04/27/19 05:05 Alkaline Phosphatase 53 units/L (35-129) 04/27/19 05:05 Total Creatine Kinase 62 units/L (55-170) 04/07/19 05:40 CK-MB (CK-2) 54.3 ng/mL (0.0-4.0) H 03/17/19 07:16 CK-MB (CK-2) Rel Index 0.0 (0-4) 03/17/19 07:16 Troponin T 0.058 ng/mL (0.00-0.029) H 03/17/19 07:16 C-Reactive Protein 7.10 mg/dL (0.00-1.30) H 04/17/19 04:15 Serum Total Protein 5.7 g/dL (6.1-8.1) L 04/21/19 04:22 Total Protein 6.2 g/dL (6.3-8.2) L 04/27/19 05:05 Albumin 2.8 g/dL (3.9-5) L 04/27/19 05:05 Albumin/Globulin Ratio 0.8 % 04/27/19 05:05 [place]naa-0-Auvorvnaw 0.5 g/dL (0.2-0.3) H 04/21/19 04:22 Ursoh-4-Lfxftuumz 1.0 g/dL (0.5-0.9) H 04/21/19 04:22 Beta Globulins 0.4 g/dL (0.2-0.5) 04/21/19 04:22 Gamma Globulins 1.1 g/dL (0.8-1.7) 04/21/19 04:22 Abnorm Protein Band 1 see below 04/21/19 04:22 PEP Interpretation see below H 04/21/19 04:22 Triglycerides 309 mg/dL (2-149) H 03/29/19 06:22 Cholesterol 88 mg/dL (50-199) 03/16/19 22:32 LDL Cholesterol Direct 10 mg/dL (50-130) L 03/16/19 22:32 HDL Cholesterol 7 mg/dL (40-59) L 03/16/19 22:32 Cholesterol/HDL Ratio 12.57 % 03/16/19 22:32 Vitamin B12 903.0 pg/mL (211-911) 04/02/19 05:03 Folate 8.05 ng/mL (7.3-26.0) 04/02/19 05:03 Procalcitonin 25.42 ng/mL (<0.15) 03/27/19 19:21 TSH 2.200 mlU/mL (0.270-4.200) 03/16/19 17:05 Free T4 0.72 ng/dL (0.76-1.46) L 03/16/19 17:05 PTH Intact 329.9 pg/mL (15-65) H 03/25/19 05:00 Urine Color Yellow (Yellow) 04/15/19 22:11 Urine Turbidity Clear (Clear) 04/15/19 22:11 Urine pH 6.0 (5.0-7.0) 04/15/19 22:11 Ur Specific [place] 1.010 (1.003-1.030) 04/15/19 22:11 Urine Protein 30 mg/dl mg/dL (Negative) 04/15/19 22:11 Urine Glucose (UA) Neg mg/dL (Negative) 04/15/19 22:11 Urine Ketones Neg mg/dL (Negative) 04/15/19 22:11 Urine Blood Mod (Negative) 04/15/19 22:11 Urine Nitrite Neg (Negative) 04/15/19 22:11 Urine Bilirubin Neg (Negative) 04/15/19 22:11 Urine Urobilinogen < 2.0 mg/dL (<2.0) 04/15/19 22:11 Ur Leukocyte Esterase Neg (Negative) 04/15/19 22:11 Urine WBC (Auto) 4.0 /HPF (0.0-6.0) 04/15/19 22:11 Urine RBC (Auto) 2.0 /HPF (0.0-6.0) 04/15/19 22:11 U Epithel Cells (Auto) < 1.0 /HPF (0-13.0) 04/15/19 22:11 Amorphous Crystals 1+ 04/05/19 16:50 Urine Mucus Few /HPF 03/17/19 16:05 Urine Sperm 2+ /HPF (EVIDENCE TECHNICIAN) 03/17/19 16:05 Urine Eosinophils None seen (None Seen) 03/17/19 16:05 Urine Creatinine 106.6 mg/dL (0.1-20.0) H 03/17/19 16:05 Urine Sodium 95 mmol/L 03/17/19 16:05 Vancomycin Trough 11.5 ug/mL (5.0-20.0) 03/18/19 13:19 Random Vancomycin 10.8 ug/mL (0-40.0) 04/14/19 03:55 Salicylates < 0.3 mg/dL (2.8-20.0) L 03/16/19 17:05 Urine Opiates Screen Presumptive negative 03/17/19 16:05 Urine Methadone Screen Presumptive negative 03/17/19 16:05 Acetaminophen < 5.0 ug/mL (10.0-30.0) L 03/16/19 17:05 Ur Barbiturates Screen Presumptive negative 03/17/19 16:05 Ur Phencyclidine Scrn Presumptive negative 03/17/19 16:05 Ur Amphetamines Screen Presumptive negative 03/17/19 16:05 U Benzodiazepines Scrn Presumptive positive 03/17/19 16:05 Urine Cocaine Screen Presumptive negative 03/17/19 16:05 U Marijuana (THC) Screen Presumptive negative 03/17/19 16:05 Drugs of Abuse Note Disclamer 03/17/19 16:05 Plasma/Serum Alcohol < 0.01 % (0-0.07) 03/16/19 17:05 LANDY Screen Negative (Negative) 04/17/19 04:15 Complement C3 150 mg/dL (82-185) 04/17/19 04:15 Complement C4 37 mg/dL (15-53) 04/17/19 04:15 Hepatitis A IgM Ab Non-reactive (NonReactive) 04/18/19 10:02 Hep Bs Antigen Non-reactive (Negative) 04/18/19 10:02 Hep B Core IgM Ab Non-reactive (NonReactive) 04/18/19 10:02 Hepatitis C Antibody Non-reactive (NonReactive) 04/18/19 10:02 HIV 1&2 Antibody Rapid Non react (Non React) 03/17/19 11:52 HIV P24 Antigen Non react (Non React) 03/17/19 11:52 Influenza A (Rapid) Negative (Negative) 03/17/19 17:00 Influenza B (Rapid) Negative (Negative) 03/17/19 17:00 Group A Strep Rapid Negative (Negative) 03/17/19 17:00 Miscellaneous Test Flexitest 1 03/21/19 12:00 Blood Type A POSITIVE 04/02/19 16:34 Antibody Screen Negative 04/02/19 16:34 Crossmatch See Detail 04/02/19 16:34 Active Medications - Current Medications Current Medications: Generic Name Dose Route Start Last Admin Trade Name Freq PRN Reason Stop Dose Admin Acetaminophen 650 mg 04/02/19 23:26 04/21/19 20:29 Tylenol PO 650 mg Q4H PRN Administration Pain, Mild (1-3),temp>100.5 Albuterol 2.5 mg 03/29/19 13:08 Proventil IH Q4HRT PRN Shortness Of Breath Amiodarone HCl 200 mg 04/15/19 22:00 04/27/19 11:04 Cordarone PO 200 mg BID PAOLO Administration Lipase/Protease/Amylase 1 each 04/20/19 13:17 Pancrekarly Purcell 10,500 Unit FEEDTUBE PRN PRN For Clogged Feeding Tube Bacitracin 1 applic 04/17/19 08:00 Antibiotic Oint TP Q4H PRN upper lip sore/open Calcitonin [place] 50 unit 04/27/19 10:00 Miacalcin SUB-Q Q12HR PAOLO Dextrose 50 gm 04/17/19 08:00 D50w (25gm) Vial IV Q1H PRN Hypoglycemia Hydralazine HCl 20 mg 04/14/19 03:00 04/14/19 03:11 Apresoline IV 20 mg Q4H PRN Administration hypertemsion Hydrophilic Ointment 1 applic 03/16/19 15:50 04/19/19 18:24 Vaseline Lip Therapy TP 1 applic Q2HR PRN Administration Dry Lips Sodium Chloride 100 mls @ 999 mls/hr 04/20/19 08:41 Nacl 0.9% IV NEYMAR PRN Hypotension Lansoprazole 30 mg 04/11/19 10:00 04/27/19 11:04 Prevacid Solutab FEEDTUBE 30 mg BID PAOLO Administration Melatonin 5 mg 04/26/19 21:00 04/26/19 23:07 Melatonin PO 5 mg QHS PRN Administration Sleep Metoprolol Tartrate 5 mg 04/16/19 22:24 04/22/19 00:20 Lopressor IV 5 mg Q6H PRN Administration For HR >120 Metoprolol Tartrate 25 mg 04/17/19 20:00 04/27/19 11:04 Lopressor PO 25 mg TID PAOLO Administration Multi-Ingred Cream/Lotion/Oil/Oint 1 applic 03/16/19 15:50 03/19/19 20:10 Artificial Tears Ophth Oint OU 1 applic Q4HR PRN Administration Dry Eye(s) Simple Syrup 15 ml 04/20/19 13:17 Simple Syrup FEEDTUBE PRN PRN Hypoglycemia Simple Syrup 30 ml 04/20/19 13:29 Simple Syrup FEEDTUBE PRN PRN Hypoglycemia Sodium Bicarbonate 325 mg 04/20/19 13:17 04/27/19 11:03 Sodium Bicarbonate FEEDTUBE 325 mg PRN PRN Administration For Clogged Feeding Tube Sodium Hypochlorite 1 applic 04/18/19 11:00 04/26/19 21:55 Dakin's Half Strength TP 1 applicatio BID PAOLO Administration Nutrition/Malnutrition Assess - Dietary Evaluation Nutrition/Malnutrition Findings: Nutrition Notes Start: 03/17/19 14:2 2 Freq: Status: Active Protocol: Document 04/27/19 12:05 DW (Rec: 04/27/19 12:13 DW [id number]) Co-Sign 04/27/19 12:05 LP Nutrition Notes Initial or Follow up Reassessment Current Diagnosis Acute Kidney Injury,Heart Failure Other Pertinent Diagnosis on HD, Septic shock,Multiple organ failure, encephalopathy, Aspiration pneu Current Diet Mechanical Soft Diet Labs/Tests Na: 136 K: 3.2 BUN: 40 Cr: 2.5 Ca: 12.3 Pertinent Medications Reviewed Height 6 ft Weight 146.8 kg [place] Body Weight (kg) 80.90 BMI 43.9 Subjective/Other Information F/U intakes Pt stated his appetite is fine but has only been eating 25% of his meals because he does not like the taste of food. Pt stated he would like to have another drink besides water. Instructional Design Technologist offered lemonade and pt agreed. Percent of energy/protein needs met: 25%/21% Burn Absent Trauma Absent Minimum of two criteria No #1 Nutrition Diagnosis Inadequate oral intake As Evidenced by Signs and Symptoms PT diet advanced and pt consuimng 25% of kcal/PRO needs Diagnosis Progress(for reassessment Improved documentation) Is patient on ventilator? No Is Patient Ambulatory and/or Out of Bed No REE-([place]-confined to bed) 2871.756 Kcal/Kg value to use for calculation 14 Approximate Energy Requirements Using 2054 kcal/Kg Calculation Used for Recommendations Kcal/kg Additional Notes Protein: 116-145g (1.2-1.5g/kg , AjdBW 97 kg) Fluids:1 ml/kcal or per MD Nutrition Intervention Change Diet Order: Continue Current Diet Nutrition Support: d/c Goal #1 Meet least 75% of kcal/PRO needs via PO Anticipated Discharge Needs: Unable to determine at this time Follow-Up By: 04/30/19 Additional Comments F/U PO intake
--- NOTE | 2019-04-27 16:14 | Vascular Lab Report ---
CLINICAL DATA: Left arm swelling TECHNICAL DATA: Imaging was performed from the internal jugular vein extending throughout upper extremity venous syst em using duplex sonography and color flow imaging. FINDINGS: There is normal compressibility of the internal jugular vein with normal flow characteristics. The crook bclavian vein and innominate vein demonstrate normal flow characteristics. The axillary vein, brachial vein, ulnar vein and radial veins are compressible throughout their cours e. No intraluminal echogenicity to suggest deep venous thrombosis. Color flow imaging demonstrates no rmal augmentation. The superficial venous system including the basilic vein and cephalic vein are compressible throughou t course. IMPRESSION: Normal imaging of the left upper extremity venous system using duplex sonography and color-flow imagi ng. Signer Name: Barry Birch MD Signed: 04/27/2019 4:10 PM Workstation Name: [id number]
[2019-04-27] MEDS: CALCITONIN,SALMON,SYNTHETIC 400 UNIT/2 ML INJ MDV SUB-Q SCH ×2 (16:50→22:12)
[2019-04-27] MEDS: SODIUM HYPOCHLORITE, DAKIN'S 1/2 STRENGTH (0.25%) 473 ML TOPICAL SOLN TP SCH ×2 (20:45→22:12)
[2019-04-28 06:33] LABS: Calcium 12.1 mg/dL (8.4-10.2)
[2019-04-28] MEDS: ACETAMINOPHEN 325 MG TAB PO PRN ×3 (08:03→22:25)
--- NOTE | 2019-04-28 08:22 | Progress Note ---
Assessment and Plan Assessment and plan: Patient is a 43-year-old man with history of GERD, obesity and mental illness, who presented to [facility] ED on 03/16/2019 with altered mental status. He is visiting from [place] and was brought in by his friend. As per records per family he has been homeless [address] [place]. When he came to the ER, he was unable to speak or follow commands, in the ER he was found to have SVT with heart rate in the 250s. The patient was shocked and medicated. Also was confused, and had trouble protecting his airway; therefore, he was then intubated. He has had a prolonged hospital course. During this hospital course, he was found to have sepsis with septic shock, acute resp failure, rhabdomyolysis, RUBEN, and multisystem organ failure, toxic metabolic encephalopathy. He was started on hemodialysis-still getting dialysis. patient is much improved. Still has recurrent fever, followed by ID Physician. Patient now on Azactam, Zyvox. He passed his swallow test started on mechanical soft diet today 04/21/19. * Initial rhythm appeared to be SVT * Per friend patient complaining of feeling ill and has some left eye discharge, cold, clammy and diaphrietic by the time arrived to the hospital. Also mentions a possibility of a right axilla abscess. The and went to stay with his girlfriend the last 2 days and this morning when he saw the patient he was ill-appearing but sleeping. * Currently on 4 pressors * Start on Elizabeth culture including coverage for possible Meningitis CHEST 1 VIEW . IMPRESSION: 1. Endotracheal tube in good position. 2. Nasogastric tube doubled back on itself at the level of the salina with the tip not seen. The tube will need to be removed/reposition. CT of the chest, abdomen and pelvis without contrast . IMPRESSION: 1. Parenchymal disease in both lower lobes posteromedially may be related to aspiration pneumonia. 2. Moderately dilated small bowel bowel loops in the mid to upper abdomen anteriorly with mild associated bowel wall thickening. Locali zed enteritis and small bowel ischemia should be considered. CT head/brain wo contrast. IMPRESSION: 1. Some component of diffuse cerebral edema cannot be excluded. However, this finding may be artifactual secondary to patient positioning. Close follow-up is recommended. No definitive signs of herniation or large territorial infarct at this time. 2. Otherwise, no focal mass, hemorrhage, hydrocephalus, or large infarct seen. Acute hypoxic respiratory failure. Was intubated, now extubated. Now on Room air. Continue BiPAP as clinically indicated. SVT with Polymorphic Vtach/Atrial fibrillation. Continue Metoprolol. Cardiology following. No systemic AC regarding AFib in setting of anemia, thrombocytopenia, GI bleed. Acute blood loss anemia. Patient with GI bleed secondary to peptic ulcer disease. EGD completed per GI. Continue PRBCs as needed. GI bleed/peptic ulcer disease. Continue PPI. Transfuse PRBCs as needed. Sepsis/septic shock. Continue antibiotics per ID. Now on Zyvox and Azactam Right Axillary cellulitis/Suspect Aspiration pneumonia/Acute Cystitis: Antibiotics stopped. Fever, recurrent- Improved ID following Severe Metabolic Acidosis- Resolved Hypercalcemia: Slight improvement. Continue to monitor- give fluids and lasix, recalled Coin Box Inspector Multi-Organ failure/ Ischemic hepatitis/shock liver. Elevated LFTs improved. Viral hepatitis panel negative Acute Kidney Failure secondary to ATN ANURIC. Patient still on hemodialysis. Patient was started on hemodialysis on 03/18/19 due to worsening metabolic acido sis and hyperkalemia. Baseline renal function is unknown. CT abdomen was negative for obstructive nephropathy. Avoid nephrotoxic agents. Continue hemodialysis per nephrology. Toxic metabolic encephalopathy. Brain MRI showed no acute intracranial abnormality, mild nonspecific chronic white matter changes, fluid throughout the sinuses and mastoid air cells. Swelling both upper ext L>R Doppler US : no DVT LUE Repeat doppler Continue wound care Patient recieved fluids, will give calcium Left AC wound- Dressing in place, wound care following and proscribing management Hypokalemia. Correted Replete potassium as needed. Hypernatremia. Follow-up BMP, Nephrology following Now resolved Thrombocytopenia, Presume DIC. Etiology likely secondary to sepsis. Resolved. Rhabdomyolysis. CK normalized. Full code status Continue aggressive PT. will obtain Psych consult given the hallucination History Interval history: Patient seen and examined, no new complaints, still very lethargic. no further hallucination, noted edema of the left arm. dressing still in place. updated brother per patients request. continue to encourage participation with PT Hospitalist Physical - Physical exam Narrative exam: Constitutional: well-developed. mild distress, temporal wasting, lethargic Head: Normocephalic atraumatic Eyes: Pupils are equal round and reactive to light Mouth: Moist mucous membranes. Neck: Supple no thyromegaly. No bruit. No JVD Heart: Irregularly irregular. No rubs murmurs or gallop Lungs: Clear to auscultation bilaterally. no rales or rhonchi Abdomen: Soft, nontender. Bowel sound are present. Extremities: left upper ext edema, dressing in place. no cyanosis, no clubbing. Neuro: Alert oriented Oriented x2. No focal sensory or motor deficit. Skin:Diffuse multple ulcerated lesions- see wound care notes, has been present. but dressing covering. Non draining. Musculoskeletal system: No joint pain or swelling Hematological: No petechia or subcutanous hemorrhages. Psychiatry: Euthymic. Calm. ANXIOUS - Constitutional Vitals: Temp Pulse Resp BP Pulse Ox 98.2 F 81 18 125/81 94 04/28/19 05:46 04/28/19 05:46 04/28/19 05:46 04/28/19 05:46 04/28/19 05:46 General appearance: Present: obese Results - Labs CBC & Chem 7: 04/27/19 05:05 04/28/19 05:17 Labs: Laboratory Last Values WBC 11.9 K/mm3 (4.5-11.0) H 04/27/19 05:05 RBC 3.01 M/mm3 (3.65-5.03) L 04/27/19 05:05 Hgb 8.6 gm/dl (11.8-15.2) L 04/27/19 05:05 Hct 26.3 % (35.5-45.6) L 04/27/19 05:05 MCV 87 fl (84-94) 04/27/19 05:05 MCH 29 pg (28-32) 04/27/19 05:05 MCHC 33 % (32-34) 04/27/19 05:05 RDW 17.6 % (13.2-15.2) H 04/27/19 05:05 Plt Count 397 K/mm3 (140-440) 04/27/19 05:05 Lymph % (Auto) 11.9 % (13.4-35.0) L 04/27/19 05:05 [place] % (Auto) 5.3 % (0.0-7.3) 04/27/19 05:05 Eos % (Auto) 3.7 % (0.0-4.3) 04/27/19 05:05 Baso % (Auto) 0.8 % (0.0-1.8) 04/27/19 05:05 Lymph # 1.4 K/mm3 (1.2-5.4) 04/27/19 05:05 [place] # 0.6 K/mm3 (0.0-0.8) 04/27/19 05:05 Eos # 0.4 K/mm3 (0.0-0.4) 04/27/19 05:05 Baso # 0.1 K/mm3 (0.0-0.1) 04/27/19 05:05 Add Manual Diff Complete 04/11/19 04:16 Total Counted 100 04/11/19 04:16 Seg Neutrophils % 78.3 % (40.0-70.0) H 04/27/19 05:05 Seg Neuts % (Manual) 71.0 % (40.0-70.0) H 04/11/19 04:16 Band Neutrophils % 1.0 % 04/11/19 04:16 Lymphocytes % (Manual) 17.0 % (13.4-35.0) 04/11/19 04:16 Reactive Lymphs % (Man) 0 % 04/11/19 04:16 Monocytes % (Manual) 8.0 % (0.0-7.3) H 04/11/19 04:16 Eosinophils % (Manual) 2.0 % (0.0-4.3) 04/11/19 04:16 Basophils % (Manual) 1.0 % (0.0-1.8) 04/11/19 04:16 Metamyelocytes % 0 % 04/11/19 04:16 Myelocytes % 0 % 04/11/19 04:16 Promyelocytes % 0 % 04/11/19 04:16 Blast Cells % 0 % 04/11/19 04:16 Nucleated RBC % Not Reportable 04/11/19 04:16 Seg Neutrophils # 9.4 K/mm3 (1.8-7.7) H 04/27/19 05:05 Seg Neutrophils # Man 8.2 K/mm3 (1.8-7.7) H 04/11/19 04:16 Band Neutrophils # 0.1 K/mm3 04/11/19 04:16 Lymphocytes # (Manual) 2.0 K/mm3 (1.2-5.4) 04/11/19 04:16 Abs React Lymphs (Man) 0.0 K/mm3 04/11/19 04:16 Monocytes # (Manual) 0.9 K/mm3 (0.0-0.8) H 04/11/19 04:16 Eosinophils # (Manual) 0.2 K/mm3 (0.0-0.4) 04/11/19 04:16 Basophils # (Manual) 0.1 K/mm3 (0.0-0.1) 04/11/19 04:16 Metamyelocytes # 0.0 K/mm3 04/11/19 04:16 Myelocytes # 0.0 K/mm3 04/11/19 04:16 Promyelocytes # 0.0 K/mm3 04/11/19 04:16 Blast Cells # 0.0 K/mm3 04/11/19 04:16 WBC Morphology Not Reportable 04/11/19 04:16 Hypersegmented Neuts Not Reportable 04/11/19 04:16 Hyposegmented Neuts Not Reportable 04/11/19 04:16 Hypogranular Neuts Not Reportable 04/11/19 04:16 Smudge Cells Not Reportable 04/11/19 04:16 Toxic Granulation Not Reportable 04/11/19 04:16 Toxic Vacuolation Not Reportable 04/11/19 04:16 Dohle Bodies Not Reportable 04/11/19 04:16 Pelger-Huet Anomaly Not Reportable 04/11/19 04:16 Joyce Rods Not Reportable 04/11/19 04:16 Platelet Estimate Consistent w auto 04/11/19 04:16 Clumped Platelets Not Reportable 04/11/19 04:16 Plt Clumps, EDTA Not Reportable 04/11/19 04:16 Large Platelets Not Reportable 04/11/19 04:16 Giant Platelets Not Reportable 04/11/19 04:16 Platelet Satelliting Not Reportable 04/11/19 04:16 Plt Morphology Comment Not Reportable 04/11/19 04:16 RBC Morphology Not Reportable 04/11/19 04:16 Dimorphic RBCs Not Reportable 04/11/19 04:16 Polychromasia Not Reportable 04/11/19 04:16 Hypochromasia Not Reportable 04/11/19 04:16 Poikilocytosis Not Reportable 04/11/19 04:16 Anisocytosis Rare 04/11/19 04:16 Microcytosis Rare 04/11/19 04:16 Macrocytosis Not Reportable 04/11/19 04:16 Spherocytes Not Reportable 04/11/19 04:16 Pappenheimer Bodies Not Reportable 04/11/19 04:16 Sickle Cells Not Reportable 04/11/19 04:16 Target Cells Not Reportable 04/11/19 04:16 Tear Drop Cells Not Reportable 04/11/19 04:16 Ovalocytes Not Reportable 04/11/19 04:16 Stomatocytes Few 03/26/19 Unknown Helmet Cells Not Reportable 04/11/19 04:16 [place] Bodies Not Reportable 04/11/19 04:16 Weldon Rings Not Reportable 04/11/19 04:16 Samantha Cells Not Reportable 04/11/19 04:16 Bite Cells Not Reportable 04/11/19 04:16 Crenated Cell Not Reportable 04/11/19 04:16 Elliptocytes Not Reportable 04/11/19 04:16 Acanthocytes (Spur) Not Reportable 04/11/19 04:16 Rouleaux Not Reportable 04/11/19 04:16 Hemoglobin C Crystals Not Reportable 04/11/19 04:16 Schistocytes Not Reportable 04/11/19 04:16 Malaria parasites Not Reportable 04/11/19 04:16 Phil Bodies Not Reportable 04/11/19 04:16 Hem Pathologist Commnt No 04/11/19 04:16 PT 15.3 Sec. (12.2-14.9) H 03/29/19 11:48 INR 1.24 (0.87-1.13) H 03/29/19 11:48 APTT 26.6 Sec. (24.2-36.6) 03/28/19 12:00 Fibrinogen 226 mg/dl (211-480) 03/28/19 12:00 D-Dimer 4845.98 ng/mlDDU (0-234) H 03/28/19 12:00 Heparin Anti-Xa Level 0.23 U.I./ml (0.3-0.7) L 03/28/19 05:13 POC ABG pH 7.401 (7.35-7.45) 04/07/19 12:57 ABG pH 7.388 pH Units (7.350-7.450) 04/06/19 05:20 POC ABG pCO2 41.5 (35-45) 04/07/19 12:57 ABG pCO2 38.5 mm Hg 04/06/19 05:20 POC ABG pO2 107 (80-105) H 04/07/19 12:57 ABG pO2 104.0 mm Hg (80.0-90.0) H 04/06/19 05:20 POC ABG HCO3 25.7 (22-26 mml/L) 04/07/19 12:57 ABG HCO3 22.6 mmol/L (20.0-26.0) 04/06/19 05:20 POC ABG Total CO2 27 (23-27mmol/L) 04/07/19 12:57 POC ABG O2 Sat 98 04/07/19 12:57 ABG O2 Saturation 97.8 % (95.0-99.0) 04/06/19 05:20 ABG O2 Content 10.0 (0.0-44) 04/06/19 05:20 POC ABG Base Excess 1 ((-2) - (+3)mmol/L) 04/07/19 12:57 ABG Base Excess -2.1 mmol/L (-2.0-3.0) L 04/06/19 05:20 ABG Hemoglobin 7.3 gm/dl (14.0-18.0) L 04/06/19 05:20 ABG Carboxyhemoglobin 1.7 % (0.0-5.0) 04/06/19 05:20 ABG Methemoglobin 0.6 % (0.0-1.5) 04/06/19 05:20 Oxyhemoglobin 95.5 % (95.0-99.0) 04/06/19 05:20 FiO2 30 % 04/07/19 12:57 Sodium 139 mmol/L (137-145) 04/28/19 05:17 Potassium 3.6 mmol/L (3.6-5.0) 04/28/19 05:17 Chloride 100.0 mmol/L (98-107) 04/28/19 05:17 Carbon Dioxide 26 mmol/L (22-30) 04/28/19 05:17 Anion Gap 17 mmol/L 04/28/19 05:17 BUN 34 mg/dL (9-20) H 04/28/19 05:17 Creatinine 2.0 mg/dL (0.8-1.5) H 04/28/19 05:17 Estimated GFR 36 ml/min 04/28/19 05:17 BUN/Creatinine Ratio 17 % 04/28/19 05:17 Glucose 78 mg/dL (75-100) 04/28/19 05:17 POC Glucose 82 (70-105) 04/28/19 05:57 Lactic Acid 1.90 mmol/L (0.7-2.0) 03/21/19 21:31 Calcium 12.1 mg/dL (8.4-10.2) H* 04/28/19 05:17 Ionized Calcium 3.7 mg/dL (4.8-5.6) L 03/30/19 12:09 Phosphorus 5.90 mg/dL (2.5-4.5) H 04/26/19 05:57 Magnesium 1.90 mg/dL (1.7-2.3) 04/26/19 05:57 Iron 26 ug/dL (49-181) L 04/02/19 05:03 TIBC 138 mcg/dL (250-450) L 04/02/19 05:03 Ferritin 607.0 ng/mL (13.0-400.0) H 04/02/19 05:03 Total Bilirubin 0.40 mg/dL (0.1-1.2) 04/27/19 05:05 Direct Bilirubin 0.4 mg/dL (0-0.2) H 03/31/19 08:20 Indirect Bilirubin 0.1 mg/dL 03/31/19 08:20 AST 14 units/L (5-40) 04/27/19 05:05 ALT 14 units/L (7-56) 04/27/19 05:05 Alkaline Phosphatase 53 units/L (35-129) 04/27/19 05:05 Total Creatine Kinase 62 units/L (55-170) 04/07/19 05:40 CK-MB (CK-2) 54.3 ng/mL (0.0-4.0) H 03/17/19 07:16 CK-MB (CK-2) Rel Index 0.0 (0-4) 03/17/19 07:16 Troponin T 0.058 ng/mL (0.00-0.029) H 03/17/19 07:16 C-Reactive Protein 7.10 mg/dL (0.00-1.30) H 04/17/19 04:15 Serum Total Protein 5.7 g/dL (6.1-8.1) L 04/21/19 04:22 Total Protein 6.2 g/dL (6.3-8.2) L 04/27/19 05:05 Albumin 2.8 g/dL (3.9-5) L 04/27/19 05:05 Albumin/Globulin Ratio 0.8 % 04/27/19 05:05 Vgjaq-2-Xgkrbtcib 0.5 g/dL (0.2-0.3) H 04/21/19 04:22 Ypehy-8-Ltcptfzis 1.0 g/dL (0.5-0.9) H 04/21/19 04:22 Beta Globulins 0.4 g/dL (0.2-0.5) 04/21/19 04:22 Gamma Globulins 1.1 g/dL (0.8-1.7) 04/21/19 04:22 Abnorm Protein Band 1 see below 04/21/19 04:22 PEP Interpretation see below H 04/21/19 04:22 Triglycerides 309 mg/dL (2-149) H 03/29/19 06:22 Cholesterol 88 mg/dL (50-199) 03/16/19 22:32 LDL Cholesterol Direct 10 mg/dL (50-130) L 03/16/19 22:32 HDL Cholesterol 7 mg/dL (40-59) L 03/16/19 22:32 Cholesterol/HDL Ratio 12.57 % 03/16/19 22:32 Vitamin B12 903.0 pg/mL (211-911) 04/02/19 05:03 Folate 8.05 ng/mL (7.3-26.0) 04/02/19 05:03 Procalcitonin 25.42 ng/mL (<0.15) 03/27/19 19:21 TSH 2.200 mlU/mL (0.270-4.200) 03/16/19 17:05 Free T4 0.72 ng/dL (0.76-1.46) L 03/16/19 17:05 PTH Intact 329.9 pg/mL (15-65) H 03/25/19 05:00 Urine Color Yellow (Yellow) 04/15/19 22:11 Urine Turbidity Clear (Clear) 04/15/19 22:11 Urine pH 6.0 (5.0-7.0) 04/15/19 22:11 Ur Specific [place] 1.010 (1.003-1.030) 04/15/19 22:11 Urine Protein 30 mg/dl mg/dL (Negative) 04/15/19 22:11 Urine Glucose (UA) Neg mg/dL (Negative) 04/15/19 22:11 Urine Ketones Neg mg/dL (Negative) 04/15/19 22:11 Urine Blood Mod (Negative) 04/15/19 22:11 Urine Nitrite Neg (Negative) 04/15/19 22:11 Urine Bilirubin Neg (Negative) 04/15/19 22:11 Urine Urobilinogen < 2.0 mg/dL (<2.0) 04/15/19 22:11 Ur Leukocyte Esterase Neg (Negative) 04/15/19 22:11 Urine WBC (Auto) 4.0 /HPF (0.0-6.0) 04/15/19 22:11 Urine RBC (Auto) 2.0 /HPF (0.0-6.0) 04/15/19 22:11 U Epithel Cells (Auto) < 1.0 /HPF (0-13.0) 04/15/19 22:11 Amorphous Crystals 1+ 04/05/19 16:50 Urine Mucus Few /HPF 03/17/19 16:05 Urine Sperm 2+ /HPF (YARDING ENGINEER) 03/17/19 16:05 Urine Eosinophils None seen (None Seen) 03/17/19 16:05 Urine Creatinine 106.6 mg/dL (0.1-20.0) H 03/17/19 16:05 Urine Sodium 95 mmol/L 03/17/19 16:05 Vancomycin Trough 11.5 ug/mL (5.0-20.0) 03/18/19 13:19 Random Vancomycin 10.8 ug/mL (0-40.0) 10/19/19 03:55 Salicylates < 0.3 mg/dL (2.8-20.0) L 03/16/19 17:05 Urine Opiates Screen Presumptive negative 03/17/19 16:05 Urine Methadone Screen Presumptive negative 03/17/19 16:05 Acetaminophen < 5.0 ug/mL (10.0-30.0) L 03/16/19 17:05 Ur Barbiturates Screen Presumptive negative 03/17/19 16:05 Ur Phencyclidine Scrn Presumptive negative 03/17/19 16:05 Ur Amphetamines Screen Presumptive negative 03/17/19 16:05 U Benzodiazepines Scrn Presumptive positive 03/17/19 16:05 Urine Cocaine Screen Presumptive negative 03/17/19 16:05 U Marijuana (THC) Screen Presumptive negative 03/17/19 16:05 Drugs of Abuse Note Disclamer 03/17/19 16:05 Plasma/Serum Alcohol < 0.01 % (0-0.07) 03/16/19 17:05 LANDY Screen Negative (Negative) 04/17/19 04:15 Complement C3 150 mg/dL (82-185) 04/17/19 04:15 Complement C4 37 mg/dL (15-53) 04/17/19 04:15 Hepatitis A IgM Ab Non-reactive (NonReactive) 04/18/19 10:02 Hep Bs Antigen Non-reactive (Negative) 04/18/19 10:02 Hep B Core IgM Ab Non-reactive (NonReactive) 04/18/19 10:02 Hepatitis C Antibody Non-reactive (NonReactive) 04/18/19 10:02 HIV 1&2 Antibody Rapid Non react (Non React) 03/17/19 11:52 HIV P24 Antigen Non react (Non React) 03/17/19 11:52 Influenza A (Rapid) Negative (Negative) 03/17/19 17:00 Influenza B (Rapid) Negative (Negative) 03/17/19 17:00 Group A Strep Rapid Negative (Negative) 03/17/19 17:00 Miscellaneous Test Flexitest 1 03/21/19 12:00 Blood Type A POSITIVE 04/02/19 16:34 Antibody Screen Negative 04/02/19 16:34 Crossmatch See Detail 04/02/19 16:34 Active Medications - Current Medications Current Medications: Generic Name Dose Route Start Last Admin Trade Name Freq PRN Reason Stop Dose Admin Acetaminophen 650 mg 04/02/19 23:26 04/28/19 08:03 Tylenol PO 650 mg Q4H PRN Administration Pain, Mild (1-3),temp>100.5 Albuterol 2.5 mg 03/29/19 13:08 Proventil IH Q4HRT PRN Shortness Of Breath Amiodarone HCl 200 mg 04/15/19 22:00 04/27/19 22:11 Cordarone PO 200 mg BID PAOLO Administration Lipase/Protease/Amylase 1 each 04/20/19 13:[address] 10,500 Unit FEEDTUBE PRN PRN For Clogged Feeding Tube Bacitracin 1 applic 04/17/19 08:00 Antibiotic Oint TP Q4H PRN upper lip sore/open Calcitonin [place] 50 unit 04/27/19 10:00 04/27/19 22:12 Miacalcin SUB-Q 50 unit Q12HR PAOLO Administration Dextrose 50 gm 04/17/19 08:00 D50w (25gm) Vial IV Q1H PRN Hypoglycemia Hydralazine HCl 20 mg 04/14/19 03:00 04/14/19 03:11 Apresoline IV 20 mg Q4H PRN Administration hypertemsion Hydrophilic Ointment 1 applic 03/16/19 15:50 04/19/19 18:24 Vaseline Lip Therapy TP 1 applic Q2HR PRN Administration Dry Lips Sodium Chloride 100 mls @ 999 mls/hr 04/20/19 08:41 Nacl 0.9% IV NEYMAR PRN Hypotension Lansoprazole 30 mg 04/11/19 10:00 04/27/19 22:11 Prevacid Solutab FEEDTUBE 30 mg BID PAOLO Administration Melatonin 5 mg 04/26/19 21:00 04/26/19 23:07 Melatonin PO 5 mg QHS PRN Administration Sleep Metoprolol Tartrate 5 mg 04/16/19 22:24 04/22/19 00:20 Lopressor IV 5 mg Q6H PRN Administration For HR >120 Metoprolol Tartrate 25 mg 04/17/19 20:00 04/27/19 22:11 Lopressor PO 25 mg TID PAOLO Administration Multi-Ingred Cream/Lotion/Oil/Oint 1 applic 03/16/19 15:50 03/19/19 20:10 Artificial Tears Ophth Oint OU 1 applic Q4HR PRN Administration Dry Eye(s) Simple Syrup 15 ml 04/20/19 13:17 Simple Syrup FEEDTUBE PRN PRN Hypoglycemia Simple Syrup 30 ml 04/20/19 13:29 Simple Syrup FEEDTUBE PRN PRN Hypoglycemia Sodium Bicarbonate 325 mg 04/20/19 13:17 04/27/19 11:03 Sodium Bicarbonate FEEDTUBE 325 mg PRN PRN Administration For Clogged Feeding Tube Sodium Hypochlorite 1 applic 04/18/19 11:00 04/27/19 22:12 Dakin's Half Strength TP 1 applicatio BID PAOLO Administration Nutrition/Malnutrition Assess - Dietary Evaluation Nutrition/Malnutrition Findings: Nutrition Notes Start: 03/17/19 14:22 Freq: Status: Active Protocol: Document 04/27/19 12:05 MANOJ (Rec: 04/27/19 12:13 DW [id number]) Co-Sign 04/27/19 12:05 LP Nutrition Notes Initial or Follow up Reassessment Current Diagnosis Acute Kidney Injury,Heart Failure Other Pertinent Diagnosis on HD, Septic shock,Multiple organ failure, encephalopathy, Aspiration pneu Current Diet Mechanical Soft Diet Labs/Tests Na: 136 K: 3.2 BUN: 40 Cr: 2.5 Ca: 12.3 Pertinent Medications Reviewed Height 6 ft Weight 146.8 kg [place] Body Weight (kg) 80.90 BMI 43.9 Subjective/Other Information F/U intakes Pt stated his appetite is fine but has only been eating 25% of his meals because he does not like the taste of food. Pt stated he would like to have another drink besides water. Equip Tech offered lemonade and pt agreed. Percent of energy/protein needs met: 25%/21% Burn Absent Trauma Absent Minimum of two criteria No #1 Nutrition Diagnosis Inadequate oral intake As Evidenced by Signs and Symptoms PT diet advanced and pt consuimng 25% of kcal/PRO needs Diagnosis Progress(for reassessment Improved documentation) Is patient on ventilator? No Is Patient Ambulatory and/or Out of Bed No REE-([facility]-confined to bed) 2871.756 Kcal/Kg value to use for calculation 14 Approximate Energy Requirements Using 2054 kcal/Kg Calculation Used for Recommendations Kcal/kg Additional Notes Protein: 116-145g (1.2-1.5g/kg , AjdBW 97 kg) Fluids:1 ml/kcal or per MD Nutrition Intervention Change Diet Order: Continue Current Diet Nutrition Support: d/c Goal #1 Meet least 75% of kcal/PRO needs via PO Anticipated Discharge Needs: Unable to determine at this time Follow-Up By: 04/30/19 Additional Comments F/U PO intake
[2019-04-28] MEDS: METOPROLOL TARTRATE 25 MG TAB PO SCH ×3 (08:47→22:21)
--- NOTE | 2019-04-28 09:11 | Progress Note ---
Assessment and Plan Severe sepsis with shock, resolved. Right axilla abscess versus localized pannus/fatty collection. Acute hypoxemic respiratory failure, s/p mechanical ventilator support. Likely aspiration pneumonia, bilateral. Morbid obesity. Acute kidney injury secondary to ATN s/p HD. Leukocytosis-resolved Elevated serum transaminases/possible shock liver-- Resolved. Acute encephalopathy, toxic metabolic Thrombocytopenia- etiology, multifactorial- improving RIJ non-occlusive thrombus Oropharyngeal dysphagia Acute blood loss anemia with hemorrhagic shock- resolved Critical illness myopathy Hypernatremia Continue all supportive care -wean FiO2 for O2 sats>92% -prn ABG and CXR - Continue to monitor off antibiotics per ID. 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 CONDITION: IMPROVING PROGNOSIS: FAIR CODE STATUS: FULL Subjective Date of service: 04/28/19 Principal diagnosis: hypercalcemia - anemia Interval history: Patient is seen today for: Severe sepsis with shock; Acute hypoxemic respiratory failure; Aspiration pneumonia; Morbid obesity; Rhabdomyolysis; Acute kidney injury; Morbid obesity; Elevated serum transaminases/possible shock liver; Acute encephalopathy (Toxic/Met) Seen and examined at bedside; 24hour events reviewed; nursing and respiratory care staff consulted; no adverse overnight events reported to me; resting peacefully in bed; denies any chest pain, no shortness of breath. Just tired and weak Vitals, labs, medications, chart and imaging reviewed. Objective Vital Signs - 12hr 04/27/19 04/27/19 04/28/19 22:01 22:58 05:46 Temperature 98.4 F 98.0 F 98.2 F Pulse Rate 85 86 81 Respiratory 18 20 18 Rate Blood Pressure 129/82 159/91 125/81 O2 Sat by Pulse 93 93 94 Oximetry 04/28/19 08:47 Temperature Pulse Rate 79 Respiratory Rate Blood Pressure 133/84 O2 Sat by Pulse Oximetry Constitutional: no acute distress, other (middle aged morbidly obese CM, normocephalic ) Eyes: icteric ENT: oropharynx moist Neck: supple, no lymphadenopathy, no JVD, other (large neck circumference) Effort: normal Ascultation: Bilateral: diminished breath sounds, rales, rhonchi (scant) Percussion: Bilateral: not dull Cardiovascular: irregular rhythm, other ( S1,S2) Gastrointestinal: normoactive bowel sounds, hypoactive bowel sounds, soft, non- tender, non-distended, other (obese) Integumentary: normal, other (blisters with some weeping over the extremities) Extremities: no cyanosis, pink and warm, pulses normal, no ischemia or petechiae Neurologic: normal mental status, non-focal exam (grossly), pupils equal and round, CN II-XII normal, motor strength normal and (weakness), other (very weak) Psychiatric: mood appropriate, depressed CBC and BMP: 04/27/19 05:05 04/30/19 06:47 ABG, PT/INR, D-dimer: ABG POC ABG pH 7.401 (7.35-7.45) 04/07/19 12:57 ABG pH 7.388 pH Units (7.350-7.450) 04/06/19 05:20 POC ABG pCO2 41.5 (35-45) 04/07/19 12:57 ABG pCO2 38.5 mm Hg 04/06/19 05:20 POC ABG pO2 107 (80-105) H 04/07/19 12:57 ABG pO2 104.0 mm Hg (80.0-90.0) H 04/06/19 05:20 POC ABG HCO3 25.7 (22-26 mml/L) 04/07/19 12:57 POC ABG Total CO2 27 (23-27mmol/L) 04/07/19 12:57 POC ABG O2 Sat 98 04/07/19 12:57 ABG O2 Saturation 97.8 % (95.0-99.0) 04/06/19 05:20 PT/INR, D-dimer PT 15.3 Sec. (12.2-14.9) H 03/29/19 11:48 INR 1.24 (0.87-1.13) H 03/29/19 11:48 D-Dimer 4845.98 ng/mlDDU (0-234) H 03/28/19 12:00 Abnormal lab findings: Abnormal Labs 03/16/19 03/16/19 03/16/19 15:32 16:03 16:05 WBC 27.0 H RBC 5.55 H Hgb 15.7 H Hct 47.1 H MCV MCHC RDW Plt Count 75 L Lymph % (Auto) [place] % (Auto) Lymph # [place] # Seg Neutrophils % Seg Neuts % (Manual) 85.0 H Lymphocytes % (Manual) 2.0 L Monocytes % (Manual) Nucleated RBC % Seg Neutrophils # Seg Neutrophils # Man 23.0 H Lymphocytes # (Manual) 0.5 L Monocytes # (Manual) PT INR D-Dimer Heparin Anti-Xa Level POC ABG pH ABG pH POC ABG pCO2 POC ABG pO2 ABG pO2 ABG HCO3 ABG O2 Saturation ABG Base Excess ABG Hemoglobin Oxyhemoglobin Sodium 127 L Potassium Chloride 87.8 L Carbon Dioxide 17 L BUN 49 H Creatinine 5.8 H Glucose 150 H POC Glucose 118 H Lactic Acid Calcium 6.6 L Ionized Calcium Phosphorus Magnesium 1.10 L Iron TIBC Ferritin Total Bilirubin Direct Bilirubin AST ALT Alkaline Phosphatase Total Creatine Kinase 30359 H CK-MB (CK-2) Troponin T C-Reactive Protein Serum Total Protein Total Protein Albumin Jlfgf-8-Cwwroafhw Bkovg-7-Tznshkjsn PEP Interpretation Triglycerides LDL Cholesterol Direct HDL Cholesterol Free T4 PTH Intact Urine WBC (Auto) Urine Creatinine Salicylates Acetaminophen Crossmatch 03/16/19 03/16/19 03/16/19 16:59 17:05 17:05 WBC RBC Hgb Hct MCV MCHC RDW Plt Count Lymph % (Auto) [place] % (Auto) Lymph # [place] # Seg Neutrophils % Seg Neuts % (Manual) Lymphocytes % (Manual) Monocytes % (Manual) Nucleated RBC % Seg Neutrophils # Seg Neutrophils # Man Lymphocytes # (Manual) Monocytes # (Manual) PT INR D-Dimer Heparin Anti-Xa Level POC ABG pH 7.297 L ABG pH POC ABG pCO2 33.0 L POC ABG pO2 ABG pO2 ABG HCO3 ABG O2 Saturation ABG Base Excess ABG Hemoglobin Oxyhemoglobin Sodium Potassium Chloride Carbon Dioxide BUN Creatinine Glucose POC Glucose Lactic Acid Calcium Ionized Calcium Phosphorus Magnesium Iron TIBC Ferritin Total Bilirubin Direct Bilirubin AST ALT Alkaline Phosphatase Total Creatine Kinase 77824 H CK-MB (CK-2) 83.1 H Troponin T C-Reactive Protein Serum Total Protein Total Protein Albumin Pvdwd-4-Iyjpcftrf Gnhte-7-Vgeqczzhy PEP Interpretation Triglycerides LDL Cholesterol Direct HDL Cholesterol Free T4 0.72 L PTH Intact Urine WBC (Auto) Urine Creatinine Salicylates Acetaminophen Crossmatch 03/16/19 03/16/19 03/16/19 17:05 17:05 17:05 WBC RBC Hgb Hct MCV MCHC RDW Plt Count Lymph % (Auto) [place] % (Auto) Lymph # [place] # Seg Neutrophils % Seg Neuts % (Manual) Lymphocytes % (Manual) Monocytes % (Manual) Nucleated RBC % Seg Neutrophils # Seg Neutrophils # Man Lymphocytes # (Manual) Monocytes # (Manual) PT INR D-Dimer Heparin Anti-Xa Level POC ABG pH ABG pH POC ABG pCO2 POC ABG pO2 ABG pO2 ABG HCO3 ABG O2 Saturation ABG Base Excess ABG Hemoglobin Oxyhemoglobin Sodium Potassium Chloride Carbon Dioxide BUN Creatinine Glucose POC Glucose Lactic Acid 5.10 H* Calcium Ionized Calcium Phosphorus Magnesium Iron TIBC Ferritin Total Bilirubin Direct Bilirubin AST ALT Alkaline Phosphatase Total Creatine Kinase CK-MB (CK-2) Troponin T C-Reactive Protein Serum Total Protein Total Protein Albumin Omhbh-0-Gccljeqvm Ahgri-0-Fsqjihvym PEP Interpretation Triglycerides LDL Cholesterol Direct HDL Cholesterol Free T4 PTH Intact Urine WBC (Auto) Urine Creatinine Salicylates < 0.3 L Acetaminophen < 5.0 L Crossmatch 03/16/19 03/16/19 03/16/19 17:05 17:05 20:35 WBC RBC Hgb Hct MCV MCHC RDW Plt Count Lymph % (Auto) [place] % (Auto) Lymph # [place] # Seg Neutrophils % Seg Neuts % (Manual) Lymphocytes % (Manual) Monocytes % (Manual) Nucleated RBC % Seg Neutrophils # Seg Neutrophils # Man Lymphocytes # (Manual) Monocytes # (Manual) PT 15.9 H INR 1.30 H D-Dimer Heparin Anti-Xa Level POC ABG pH ABG pH POC ABG pCO2 POC ABG pO2 ABG pO2 ABG HCO3 ABG O2 Saturation ABG Base Excess ABG Hemoglobin Oxyhemoglobin Sodium Potassium Chloride Carbon Dioxide BUN Creatinine Glucose POC Glucose Lactic Acid 3.30 H* Calcium Ionized Calcium Phosphorus Magnesium Iron TIBC Ferritin Total Bilirubin 6.20 H Direct Bilirubin 5.9 H AST 800 H ALT 120 H Alkaline Phosphatase Total Creatine Kinase CK-MB (CK-2) Troponin T C-Reactive Protein Serum Total Protein Total Protein 4.4 L Albumin 2.4 L Kpfrv-0-Hebxfgcnn Etnmp-9-Fqzrrnniu PEP Interpretation Triglycerides LDL Cholesterol Direct HDL Cholesterol Free T4 PTH Intact Urine WBC (Auto) Urine Creatinine Salicylates Acetaminophen Crossmatch 03/16/19 03/16/19 03/16/19 21:45 22:32 Unknown WBC RBC Hgb Hct MCV MCHC RDW Plt Count Lymph % (Auto) [place] % (Auto) Lymph # [place] # Seg Neutrophils % Seg Neuts % (Manual) Lymphocytes % (Manual) Monocytes % (Manual) Nucleated RBC % Seg Neutrophils # Seg Neutrophils # Man Lymphocytes # (Manual) Monocytes # (Manual) PT INR D-Dimer Heparin Anti-Xa Level POC ABG pH ABG pH POC ABG pCO2 POC ABG pO2 ABG pO2 ABG HCO3 ABG O2 Saturation ABG Base Excess ABG Hemoglobin Oxyhemoglobin Sodium Potassium Chloride Carbon Dioxide BUN Creatinine Glucose POC Glucose Lactic Acid 3.30 H* 3.00 H* Calcium Ionized Calcium Phosphorus Magnesium Iron TIBC Ferritin Total Bilirubin Direct Bilirubin AST ALT Alkaline Phosphatase Total Creatine Kinase CK-MB (CK-2) Troponin T 0.047 H D C-Reactive Protein Serum Total Protein Total Protein Albumin Khxmy-9-Hjnfhqopc Fgkdf-6-Ajerrxxln PEP Interpretation Triglycerides 395 H LDL Cholesterol Direct 10 L HDL Cholesterol 7 L Free T4 PTH Intact Urine WBC (Auto) Urine Creatinine Salicylates Acetaminophen Crossmatch 03/17/19 03/17/19 03/17/19 03:45 03:45 03:45 WBC RBC Hgb Hct MCV MCHC RDW Plt Count Lymph % (Auto) [place] % (Auto) Lymph # [place] # Seg Neutrophils % Seg Neuts % (Manual) Lymphocytes % (Manual) Monocytes % (Manual) Nucleated RBC % Seg Neutrophils # Seg Neutrophils # Man Lymphocytes # (Manual) Monocytes # (Manual) PT INR D-Dimer Heparin Anti-Xa Level POC ABG pH ABG pH POC ABG pCO2 POC ABG pO2 ABG pO2 ABG HCO3 ABG O2 Saturation ABG Base Excess ABG Hemoglobin Oxyhemoglobin Sodium 131 L Potassium Chloride 88.9 L Carbon Dioxide BUN 53 H Creatinine 7.1 H Glucose POC Glucose Lactic Acid 4.10 H* Calcium 5.4 L* D Ionized Calcium Phosphorus 7.30 H Magnesium 1.60 L Iron TIBC Ferritin Total Bilirubin 5.90 H Direct Bilirubin AST 801 H ALT 109 H Alkaline Phosphatase Total Creatine Kinase 73839 H 36624 H CK-MB (CK-2) 41.5 H Troponin T 0.054 H C-Reactive Protein Serum Total Protein Total Protein 4.5 L Albumin 2.0 L Vubat-9-Dbbkvzulj Cpqct-4-Daddnjsou PEP Interpretation Triglycerides LDL Cholesterol Direct HDL Cholesterol Free T4 PTH Intact Urine WBC (Auto) Urine Creatinine Salicylates Acetaminophen Crossmatch 03/17/19 03/17/19 03/17/19 05:47 07:16 07:16 WBC RBC Hgb Hct MCV MCHC RDW Plt Count Lymph % (Auto) [place] % (Auto) Lymph # [place] # Seg Neutrophils % Seg Neuts % (Manual) Lymphocytes % (Manual) Monocytes % (Manual) Nucleated RBC % Seg Neutrophils # Seg Neutrophils # Man Lymphocytes # (Manual) Monocytes # (Manual) PT INR D-Dimer Heparin Anti-Xa Level POC ABG pH 7.193 L ABG pH POC ABG pCO2 45.2 H POC ABG pO2 65 L ABG pO2 ABG HCO3 ABG O2 Saturation ABG Base Excess ABG Hemoglobin Oxyhemoglobin Sodium Potassium Chloride Carbon Dioxide BUN Creatinine Glucose POC Glucose Lactic Acid 5.50 H* Calcium Ionized Calcium Phosphorus Magnesium Iron TIBC Ferritin Total Bilirubin Direct Bilirubin AST ALT Alkaline Phosphatase Total Creatine Kinase 76321 H CK-MB (CK-2) 54.3 H Troponin T 0.058 H C-Reactive Protein Serum Total Protein Total Protein Albumin Jbllm-1-Omuohbjdj Wqxwp-0-Emwquhknt PEP Interpretation Triglycerides LDL Cholesterol Direct HDL Cholesterol Free T4 PTH Intact Urine WBC (Auto) Urine Creatinine Salicylates Acetaminophen Crossmatch 03/17/19 03/17/19 03/17/19 11:52 12:51 13:01 WBC RBC Hgb Hct MCV MCHC RDW Plt Count Lymph % (Auto) [place] % (Auto) Lymph # [place] # Seg Neutrophils % Seg Neuts % (Manual) Lymphocytes % (Manual) Monocytes % (Manual) Nucleated RBC % Seg Neutrophils # Seg Neutrophils # Man Lymphocytes # (Manual) Monocytes # (Manual) PT INR D-Dimer Heparin Anti-Xa Level POC ABG pH 7.154 L ABG pH POC ABG pCO2 34.3 L POC ABG pO2 73 L ABG pO2 ABG HCO3 ABG O2 Saturation ABG Base Excess ABG Hemoglobin Oxyhemoglobin Sodium Potassium Chloride Carbon Dioxide BUN Creatinine Glucose POC Glucose 60 L Lactic Acid 8.20 H* Calcium Ionized Calcium Phosphorus Magnesium Iron TIBC Ferritin Total Bilirubin Direct Bilirubin AST ALT Alkaline Phosphatase Total Creatine Kinase CK-MB (CK-2) Troponin T C-Reactive Protein Serum Total Protein Total Protein Albumin Qpjjv-4-Nvxxrrtct Tsvxz-0-Bzwugbwxs PEP Interpretation Triglycerides LDL Cholesterol Direct HDL Cholesterol Free T4 PTH Intact Urine WBC (Auto) Urine Creatinine Salicylates Acetaminophen Crossmatch 03/17/19 03/17/19 03/17/19 14:37 14:37 14:37 WBC 29.3 H RBC Hgb Hct MCV MCHC RDW 15.8 H Plt Count 45 L Lymph % (Auto) [place] % (Auto) Lymph # [place] # Seg Neutrophils % Seg Neuts % (Manual) 81.0 H Lymphocytes % (Manual) 1.0 L Monocytes % (Manual) 15.0 H Nucleated RBC % Seg Neutrophils # Seg Neutrophils # Man 23.7 H Lymphocytes # (Manual) 0.3 L Monocytes # (Manual) 4.4 H PT INR D-Dimer Heparin Anti-Xa Level POC ABG pH ABG pH POC ABG pCO2 POC ABG pO2 ABG pO2 ABG HCO3 ABG O2 Saturation ABG Base Excess ABG Hemoglobin Oxyhemoglobin Sodium Potassium Chloride Carbon Dioxide BUN Creatinine Glucose POC Glucose Lactic Acid 4.90 H* Calcium Ionized Calcium Phosphorus Magnesium Iron TIBC Ferritin Total Bilirubin Direct Bilirubin AST ALT Alkaline Phosphatase Total Creatine Kinase CK-MB (CK-2) Troponin T C-Reactive Protein 24.90 H Serum Total Protein Total Protein Albumin Klgxv-1-Zfokxvwvy Oeyoj-8-Xarobfzpj PEP Interpretation Triglycerides LDL Cholesterol Direct HDL Cholesterol Free T4 PTH Intact Urine WBC (Auto) Urine Creatinine Salicylates Acetaminophen Crossmatch 03/17/19 03/17/19 03/17/19 16:05 16:05 17:02 WBC RBC Hgb Hct MCV MCHC RDW Plt Count Lymph % (Auto) [place] % (Auto) Lymph # [place] # Seg Neutrophils % Seg Neuts % (Manual) Lymphocytes % (Manual) Monocytes % (Manual) Nucleated RBC % Seg Neutrophils # Seg Neutrophils # Man Lymphocytes # (Manual) Monocytes # (Manual) PT INR D-Dimer Heparin Anti-Xa Level POC ABG pH 7.183 L ABG pH POC ABG pCO2 POC ABG pO2 65 L ABG pO2 ABG HCO3 ABG O2 Saturation ABG Base Excess ABG Hemoglobin Oxyhemoglobin Sodium Potassium Chloride Carbon Dioxide BUN Creatinine Glucose POC Glucose Lactic Acid Calcium Ionized Calcium Phosphorus Magnesium Iron TIBC Ferritin Total Bilirubin Direct Bilirubin AST ALT Alkaline Phosphatase Total Creatine Kinase CK-MB (CK-2) Troponin T C-Reactive Protein Serum Total Protein Total Protein Albumin Pihyr-6-Ypylvxzlb Nngkw-5-Rrhlnlzcc PEP Interpretation Triglycerides LDL Cholesterol Direct HDL Cholesterol Free T4 PTH Intact Urine WBC (Auto) 30.0 H Urine Creatinine 106.6 H Salicylates Acetaminophen Crossmatch 03/18/19 03/18/19 03/18/19 05:12 05:16 05:53 WBC RBC Hgb Hct MCV MCHC RDW Plt Count Lymph % (Auto) [place] % (Auto) Lymph # [place] # Seg Neutrophils % Seg Neuts % (Manual) Lymphocytes % (Manual) Monocytes % (Manual) Nucleated RBC % Seg Neutrophils # Seg Neutrophils # Man Lymphocytes # (Manual) Monocytes # (Manual) PT INR D-Dimer Heparin Anti-Xa Level POC ABG pH 7.257 L ABG pH POC ABG pCO2 31.6 L POC ABG pO2 69 L ABG pO2 ABG HCO3 ABG O2 Saturation ABG Base Excess ABG Hemoglobin Oxyhemoglobin Sodium Potassium Chloride Carbon Dioxide BUN Creatinine Glucose POC Glucose 141 H Lactic Acid 5.00 H* Calcium Ionized Calcium Phosphorus Magnesium Iron TIBC Ferritin Total Bilirubin Direct Bilirubin AST ALT Alkaline Phosphatase Total Creatine Kinase CK-MB (CK-2) Troponin T C-Reactive Protein Serum Total Protein Total Protein Albumin Rlnzs-1-Kghtpllkm Xotjj-8-Lekmorsuj PEP Interpretation Triglycerides LDL Cholesterol Direct HDL Cholesterol Free T4 PTH Intact Urine WBC (Auto) Urine Creatinine Salicylates Acetaminophen Crossmatch 03/18/19 03/18/19 03/18/19 06:57 08:40 08:40 WBC 31.7 H RBC Hgb Hct MCV MCHC RDW 15.5 H Plt Count 35 L Lymph % (Auto) [place] % (Auto) Lymph # [place] # Seg Neutrophils % Seg Neuts % (Manual) Lymphocytes % (Manual) Monocytes % (Manual) Nucleated RBC % Seg Neutrophils # Seg Neutrophils # Man Lymphocytes # (Manual) Monocytes # (Manual) PT INR D-Dimer Heparin Anti-Xa Level POC ABG pH ABG pH POC ABG pCO2 POC ABG pO2 ABG pO2 ABG HCO3 ABG O2 Saturation ABG Base Excess ABG Hemoglobin Oxyhemoglobin Sodium 132 L Potassium 5.5 H D Chloride 88.5 L Carbon Dioxide 18 L BUN 71 H Creatinine 8.1 H Glucose 205 H POC Glucose Lactic Acid 5.00 H* Calcium 4.1 L* D Ionized Calcium Phosphorus Magnesium 2.40 H Iron TIBC Ferritin Total Bilirubin 7.50 H Direct Bilirubin AST 1088 H ALT 159 H Alkaline Phosphatase 190 H Total Creatine Kinase 536353 H CK-MB (CK-2) Troponin T C-Reactive Protein Serum Total Protein Total Protein 4.7 L Albumin 1.8 L Ztroz-3-Qlgttlmjy Bgoug-2-Mbncyuyoe PEP Interpretation Triglycerides LDL Cholesterol Direct HDL Cholesterol Free T4 PTH Intact Urine WBC (Auto) Urine Creatinine Salicylates Acetaminophen Crossmatch 03/18/19 03/18/19 03/18/19 12:33 12:50 13:19 WBC RBC Hgb Hct MCV MCHC RDW Plt Count Lymph % (Auto) [place] % (Auto) Lymph # [place] # Seg Neutrophils % Seg Neuts % (Manual) Lymphocytes % (Manual) Monocytes % (Manual) Nucleated RBC % Seg Neutrophils # Seg Neutrophils # Man Lymphocytes # (Manual) Monocytes # (Manual) PT INR D-Dimer Heparin Anti-Xa Level POC ABG pH 7.282 L ABG pH POC ABG pCO2 POC ABG pO2 67 L ABG pO2 ABG HCO3 ABG O2 Saturation ABG Base Excess ABG Hemoglobin Oxyhemoglobin Sodium Potassium Chloride Carbon Dioxide BUN Creatinine Glucose POC Glucose 129 H Lactic Acid 3.30 H* Calcium Ionized Calcium Phosphorus Magnesium Iron TIBC Ferritin Total Bilirubin Direct Bilirubin AST ALT Alkaline Phosphatase Total Creatine Kinase CK-MB (CK-2) Troponin T C-Reactive Protein Serum Total Protein Total Protein Albumin Ucapy-4-Scqcgpcye Kdeal-2-Qfasffrfo PEP Interpretation Triglycerides LDL Cholesterol Direct HDL Cholesterol Free T4 PTH Intact Urine WBC (Auto) Urine Creatinine Salicylates Acetaminophen Crossmatch 03/18/19 03/18/19 03/18/19 13:19 16:50 18:11 WBC RBC Hgb Hct MCV MCHC RDW Plt Count Lymph % (Auto) [place] % (Auto) Lymph # [place] # Seg Neutrophils % Seg Neuts % (Manual) Lymphocytes % (Manual) Monocytes % (Manual) Nucleated RBC % Seg Neutrophils # Seg Neutrophils # Man Lymphocytes # (Manual) Monocytes # (Manual) PT INR D-Dimer Heparin Anti-Xa Level POC ABG pH ABG pH POC ABG pCO2 POC ABG pO2 59 L ABG pO2 ABG HCO3 ABG O2 Saturation ABG Base Excess ABG Hemoglobin Oxyhemoglobin Sodium Potassium Chloride Carbon Dioxide BUN Creatinine Glucose POC Glucose 151 H Lactic Acid Calcium 4.2 L* Ionized Calcium Phosphorus Magnesium Iron TIBC Ferritin Total Bilirubin Direct Bilirubin AST ALT Alkaline Phosphatase Total Creatine Kinase 044839 H CK-MB (CK-2) Troponin T C-Reactive Protein Serum Total Protein Total Protein Albumin Oylmv-6-Tjbakjjtc Ahayi-5-Gwwslapkr PEP Interpretation Triglycerides LDL Cholesterol Direct HDL Cholesterol Free T4 PTH Intact Urine WBC (Auto) Urine Creatinine Salicylates Acetaminophen Crossmatch 03/18/19 03/18/19 03/19/19 18:20 23:39 01:42 WBC RBC Hgb Hct MCV MCHC RDW Plt Count Lymph % (Auto) [place] % (Auto) Lymph # [place] # Seg Neutrophils % Seg Neuts % (Manual) Lymphocytes % (Manual) Monocytes % (Manual) Nucleated RBC % Seg Neutrophils # Seg Neutrophils # Man Lymphocytes # (Manual) Monocytes # (Manual) PT INR D-Dimer Heparin Anti-Xa Level POC ABG pH 7.345 L ABG pH 7.285 L POC ABG pCO2 POC ABG pO2 59 L ABG pO2 44.0 L ABG HCO3 ABG O2 Saturation 70.9 L ABG Base Excess -5.7 L ABG Hemoglobin 11.9 L Oxyhemoglobin 69.6 L Sodium Potassium Chloride Carbon Dioxide BUN Creatinine Glucose POC Glucose 152 H Lactic Acid Calcium Ionized Calcium Phosphorus Magnesium Iron TIBC Ferritin Total Bilirubin Direct Bilirubin AST ALT Alkaline Phosphatase Total Creatine Kinase CK-MB (CK-2) Troponin T C-Reactive Protein Serum Total Protein Total Protein Albumin Dfbkf-6-Blognddcc Bzqyb-7-Triyssahk PEP Interpretation Triglycerides LDL Cholesterol Direct HDL Cholesterol Free T4 PTH Intact Urine WBC (Auto) Urine Creatinine Salicylates Acetaminophen Crossmatch 03/19/19 03/19/19 03/19/19 04:00 04:00 05:35 WBC 36.5 H RBC Hgb Hct MCV MCHC RDW 15.8 H Plt Count 35 L Lymph % (Auto) [place] % (Auto) Lymph # [place] # Seg Neutrophils % Seg Neuts % (Manual) Lymphocytes % (Manual) Monocytes % (Manual) Nucleated RBC % Seg Neutrophils # Seg Neutrophils # Man Lymphocytes # (Manual) Monocytes # (Manual) PT INR D-Dimer Heparin Anti-Xa Level POC ABG pH ABG pH 7.265 L POC ABG pCO2 POC ABG pO2 ABG pO2 35.4 L* ABG HCO3 ABG O2 Saturation 54.4 L ABG Base Excess -6.7 L ABG Hemoglobin 12.9 L Oxyhemoglobin 53.4 L Sodium 132 L Potassium 5.7 H Chloride 89.8 L Carbon Dioxide 19 L BUN 62 H Creatinine 6.4 H Glucose 151 H POC Glucose Lactic Acid Calcium 5.2 L* D Ionized Calcium Phosphorus Magnesium Iron TIBC Ferritin Total Bilirubin 7.80 H Direct Bilirubin AST 682 H ALT 130 H Alkaline Phosphatase 167 H Total Creatine Kinase CK-MB (CK-2) Troponin T C-Reactive Protein Serum Total Protein Total Protein 4.8 L Albumin 2.3 L Jnfjy-7-Gqtvsrqck Pascs-0-Myljipfbm PEP Interpretation Triglycerides LDL Cholesterol Direct HDL Cholesterol Free T4 PTH Intact Urine WBC (Auto) Urine Creatinine Salicylates Acetaminophen Crossmatch 03/19/19 03/19/19 03/19/19 05:49 09:16 09:50 WBC RBC Hgb Hct MCV MCHC RDW Plt Count Lymph % (Auto) [place] % (Auto) Lymph # [place] # Seg Neutrophils % Seg Neuts % (Manual) Lymphocytes % (Manual) Monocytes % (Manual) Nucleated RBC % Seg Neutrophils # Seg Neutrophils # Man Lymphocytes # (Manual) Monocytes # (Manual) PT INR D-Dimer Heparin Anti-Xa Level POC ABG pH 7.222 L ABG pH POC ABG pCO2 56.6 H POC ABG pO2 ABG pO2 ABG HCO3 ABG O2 Saturation ABG Base Excess ABG Hemoglobin Oxyhemoglobin Sodium Potassium Chloride Carbon Dioxide BUN Creatinine Glucose POC Glucose 154 H Lactic Acid 2.70 H* Calcium Ionized Calcium Phosphorus Magnesium Iron TIBC Ferritin Total Bilirubin Direct Bilirubin AST ALT Alkaline Phosphatase Total Creatine Kinase CK-MB (CK-2) Troponin T C-Reactive Protein Serum Total Protein Total Protein Albumin Bkvwq-9-Wixfqcugz Pebqw-3-Ifzzozlmx PEP Interpretation Triglycerides LDL Cholesterol Direct HDL Cholesterol Free T4 PTH Intact Urine WBC (Auto) Urine Creatinine Salicylates Acetaminophen Crossmatch 03/19/19 03/19/19 03/19/19 09:50 11:28 17:58 WBC RBC Hgb Hct MCV MCHC RDW Plt Count Lymph % (Auto) [place] % (Auto) Lymph # [place] # Seg Neutrophils % Seg Neuts % (Manual) Lymphocytes % (Manual) Monocytes % (Manual) Nucleated RBC % Seg Neutrophils # Seg Neutrophils # Man Lymphocytes # (Manual) Monocytes # (Manual) PT INR D-Dimer Heparin Anti-Xa Level POC ABG pH 7.250 L ABG pH POC ABG pCO2 52.6 H POC ABG pO2 ABG pO2 ABG HCO3 ABG O2 Saturation ABG Base Excess ABG Hemoglobin Oxyhemoglobin Sodium Potassium Chloride Carbon Dioxide BUN Creatinine Glucose POC Glucose 160 H Lactic Acid Calcium Ionized Calcium Phosphorus Magnesium Iron TIBC Ferritin Total Bilirubin Direct Bilirubin AST ALT Alkaline Phosphatase Total Creatine Kinase 19186 H CK-MB (CK-2) Troponin T C-Reactive Protein Serum Total Protein Total Protein Albumin Dqpcy-7-Qbdovwuyi Rorrx-2-Mqqbnaqrr PEP Interpretation Triglycerides LDL Cholesterol Direct HDL Cholesterol Free T4 PTH Intact Urine WBC (Auto) Urine Creatinine Salicylates Acetaminophen Crossmatch 03/19/19 03/19/19 03/20/19 19:48 21:03 02:16 WBC RBC Hgb Hct MCV MCHC RDW Plt Count Lymph % (Auto) [place] % (Auto) Lymph # [place] # Seg Neutrophils % Seg Neuts % (Manual) Lymphocytes % (Manual) Monocytes % (Manual) Nucleated RBC % Seg Neutrophils # Seg Neutrophils # Man Lymphocytes # (Manual) Monocytes # (Manual) PT INR D-Dimer Heparin Anti-Xa Level POC ABG pH 7.279 L ABG pH POC ABG pCO2 50.3 H POC ABG pO2 129 H ABG pO2 ABG HCO3 ABG O2 Saturation ABG Base Excess ABG Hemoglobin Oxyhemoglobin Sodium Potassium Chloride Carbon Dioxide BUN Creatinine Glucose POC Glucose 119 H 119 H Lactic Acid Calcium Ionized Calcium Phosphorus Magnesium Iron TIBC Ferritin Total Bilirubin Direct Bilirubin AST ALT Alkaline Phosphatase Total Creatine Kinase CK-MB (CK-2) Troponin T C-Reactive Protein Serum Total Protein Total Protein Albumin Rrdiq-8-Rxqinwuns Jimmd-5-Sktjeazgt PEP Interpretation Triglycerides LDL Cholesterol Direct HDL Cholesterol Free T4 PTH Intact Urine WBC (Auto) Urine Creatinine Salicylates Acetaminophen Crossmatch 03/20/19 03/20/19 03/20/19 04:23 05:05 09:30 WBC 36.3 H RBC Hgb Hct MCV MCHC RDW 15.5 H Plt Count 29 L Lymph % (Auto) [place] % (Auto) Lymph # [place] # Seg Neutrophils % Seg Neuts % (Manual) Lymphocytes % (Manual) Monocytes % (Manual) Nucleated RBC % Seg Neutrophils # Seg Neutrophils # Man Lymphocytes # (Manual) Monocytes # (Manual) PT INR D-Dimer Heparin Anti-Xa Level POC ABG pH ABG pH POC ABG pCO2 POC ABG pO2 280 H ABG pO2 ABG HCO3 ABG O2 Saturation ABG Base Excess ABG Hemoglobin Oxyhemoglobin Sodium Potassium Chloride Carbon Dioxide BUN Creatinine Glucose POC Glucose 115 H Lactic Acid Calcium Ionized Calcium Phosphorus Magnesium Iron TIBC Ferritin Total Bilirubin Direct Bilirubin AST ALT Alkaline Phosphatase Total Creatine Kinase CK-MB (CK-2) Troponin T C-Reactive Protein Serum Total Protein Total Protein Albumin Gdwcy-9-Kilrxwhru Lfmrm-5-Yqtmnnewr PEP Interpretation Triglycerides LDL Cholesterol Direct HDL Cholesterol Free T4 PTH Intact Urine WBC (Auto) Urine Creatinine Salicylates Acetaminophen Crossmatch 03/20/19 03/20/19 03/20/19 09:30 09:30 11:34 WBC RBC Hgb Hct MCV MCHC RDW Plt Count Lymph % (Auto) [place] % (Auto) Lymph # [place] # Seg Neutrophils % Seg Neuts % (Manual) Lymphocytes % (Manual) Monocytes % (Manual) Nucleated RBC % Seg Neutrophils # Seg Neutrophils # Man Lymphocytes # (Manual) Monocytes # (Manual) PT INR D-Dimer Heparin Anti-Xa Level POC ABG pH ABG pH POC ABG pCO2 POC ABG pO2 ABG pO2 ABG HCO3 ABG O2 Saturation ABG Base Excess ABG Hemoglobin Oxyhemoglobin Sodium 131 L Potassium Chloride 92.3 L Carbon Dioxide 20 L BUN 68 H Creatinine 6.1 H Glucose 164 H POC Glucose 141 H Lactic Acid Calcium 5.3 L* Ionized Calcium Phosphorus Magnesium Iron TIBC Ferritin Total Bilirubin 9.50 H Direct Bilirubin AST 381 H ALT 116 H Alkaline Phosphatase 255 H Total Creatine Kinase 94452 H CK-MB (CK-2) Troponin T C-Reactive Protein Serum Total Protein Total Protein 5.1 L Albumin 2.3 L Nppgo-1-Oqfhjoqwy Nhacu-8-Krearnffe PEP Interpretation Triglycerides LDL Cholesterol Direct HDL Cholesterol Free T4 PTH Intact Urine WBC (Auto) Urine Creatinine Salicylates Acetaminophen Crossmatch 03/20/19 03/20/19 03/20/19 14:41 14:45 18:50 WBC RBC Hgb Hct MCV MCHC RDW Plt Count Lymph % (Auto) [place] % (Auto) Lymph # [place] # Seg Neutrophils % Seg Neuts % (Manual) Lymphocytes % (Manual) Monocytes % (Manual) Nucleated RBC % Seg Neutrophils # Seg Neutrophils # Man Lymphocytes # (Manual) Monocytes # (Manual) PT INR D-Dimer Heparin Anti-Xa Level POC ABG pH ABG pH POC ABG pCO2 POC ABG pO2 ABG pO2 ABG HCO3 ABG O2 Saturation ABG Base Excess ABG Hemoglobin Oxyhemoglobin Sodium Potassium Chloride Carbon Dioxide BUN Creatinine Glucose POC Glucose 117 H Lactic Acid 2.90 H* Calcium Ionized Calcium Phosphorus Magnesium Iron TIBC Ferritin Total Bilirubin Direct Bilirubin AST ALT Alkaline Phosphatase Total Creatine Kinase CK-MB (CK-2) Troponin T C-Reactive Protein 13.30 H Serum Total Protein Total Protein Albumin Zuobp-0-Hozmdyare Bwsms-2-Jolymfcyf PEP Interpretation Triglycerides LDL Cholesterol Direct HDL Cholesterol Free T4 PTH Intact Urine WBC (Auto) Urine Creatinine Salicylates Acetaminophen Crossmatch 03/20/19 03/21/19 03/21/19 21:55 04:26 04:26 WBC 37.8 H RBC Hgb Hct MCV MCHC RDW 15.4 H Plt Count 36 L Lymph % (Auto) [place] % (Auto) Lymph # [place] # Seg Neutrophils % Seg Neuts % (Manual) 93.0 H Lymphocytes % (Manual) 3.0 L Monocytes % (Manual) Nucleated RBC % 1.0 H Seg Neutrophils # 34.6 H Seg Neutrophils # Man 35.2 H Lymphocytes # (Manual) 1.1 L Monocytes # (Manual) PT INR D-Dimer Heparin Anti-Xa Level POC ABG pH ABG pH POC ABG pCO2 POC ABG pO2 ABG pO2 ABG HCO3 ABG O2 Saturation ABG Base Excess ABG Hemoglobin Oxyhemoglobin Sodium 131 L Potassium Chloride 90.7 L Carbon Dioxide 21 L BUN 69 H Creatinine 5.7 H Glucose 170 H POC Glucose 128 H Lactic Acid Calcium 6.1 L D Ionized Calcium Phosphorus Magnesium Iron TIBC Ferritin Total Bilirubin 9.50 H Direct Bilirubin AST 308 H ALT 124 H Alkaline Phosphatase 327 H Total Creatine Kinase 94444 H CK-MB (CK-2) Troponin T C-Reactive Protein Serum Total Protein Total Protein 5.7 L Albumin 2.6 L Wzauc-5-Wngztrahp Wkhmh-1-Vbazmlcsd PEP Interpretation Triglycerides LDL Cholesterol Direct HDL Cholesterol Free T4 PTH Intact Urine WBC (Auto) Urine Creatinine Salicylates Acetaminophen Crossmatch 03/21/19 03/21/19 03/21/19 05:17 05:39 08:29 WBC RBC Hgb Hct MCV MCHC RDW Plt Count Lymph % (Auto) [place] % (Auto) Lymph # [place] # Seg Neutrophils % Seg Neuts % (Manual) Lymphocytes % (Manual) Monocytes % (Manual) Nucleated RBC % Seg Neutrophils # Seg Neutrophils # Man Lymphocytes # (Manual) Monocytes # (Manual) PT INR D-Dimer Heparin Anti-Xa Level POC ABG pH ABG pH POC ABG pCO2 POC ABG pO2 209 H ABG pO2 ABG HCO3 ABG O2 Saturation ABG Base Excess ABG Hemoglobin Oxyhemoglobin Sodium Potassium Chloride Carbon Dioxide BUN Creatinine Glucose POC Glucose 145 H Lactic Acid Calcium Ionized Calcium Phosphorus Magnesium Iron TIBC Ferritin Total Bilirubin Direct Bilirubin AST ALT Alkaline Phosphatase Total Creatine Kinase 37238 H CK-MB (CK-2) Troponin T C-Reactive Protein Serum Total Protein Total Protein Albumin Ekdak-0-Aujtarkdp Ittfw-5-Cfmixlfms PEP Interpretation Triglycerides LDL Cholesterol Direct HDL Cholesterol Free T4 PTH Intact Urine WBC (Auto) Urine Creatinine Salicylates Acetaminophen Crossmatch 03/21/19 03/21/19 03/21/19 08:29 11:43 12:00 WBC RBC Hgb Hct MCV MCHC RDW Plt Count Lymph % (Auto) [place] % (Auto) Lymph # [place] # Seg Neutrophils % Seg Neuts % (Manual) Lymphocytes % (Manual) Monocytes % (Manual) Nucleated RBC % Seg Neutrophils # Seg Neutrophils # Man Lymphocytes # (Manual) Monocytes # (Manual) PT INR D-Dimer Heparin Anti-Xa Level POC ABG pH ABG pH POC ABG pCO2 POC ABG pO2 ABG pO2 ABG HCO3 ABG O2 Saturation ABG Base Excess ABG Hemoglobin Oxyhemoglobin Sodium Potassium Chloride Carbon Dioxide BUN Creatinine Glucose POC Glucose 123 H Lactic Acid 2.60 H* 2.20 H* Calcium Ionized Calcium Phosphorus Magnesium Iron TIBC Ferritin Total Bilirubin Direct Bilirubin AST ALT Alkaline Phosphatase Total Creatine Kinase CK-MB (CK-2) Troponin T C-Reactive Protein Serum Total Protein Total Protein Albumin Iflrk-7-Zscwngszb Pjjpi-2-Ptxdibwyz PEP Interpretation Triglycerides LDL Cholesterol Direct HDL Cholesterol Free T4 PTH Intact Urine WBC (Auto) Urine Creatinine Salicylates Acetaminophen Crossmatch 03/21/19 03/21/19 03/21/19 14:11 18:28 19:32 WBC RBC Hgb Hct MCV MCHC RDW Plt Count Lymph % (Auto) [place] % (Auto) Lymph # [place] # Seg Neutrophils % Seg Neuts % (Manual) Lymphocytes % (Manual) Monocytes % (Manual) Nucleated RBC % Seg Neutrophils # Seg Neutrophils # Man Lymphocytes # (Manual) Monocytes # (Manual) PT INR D-Dimer Heparin Anti-Xa Level POC ABG pH 7.293 L ABG pH POC ABG pCO2 POC ABG pO2 ABG pO2 ABG HCO3 ABG O2 Saturation ABG Base Excess ABG Hemoglobin Oxyhemoglobin Sodium Potassium Chloride Carbon Dioxide BUN Creatinine Glucose POC Glucose 153 H Lactic Acid 2.10 H* Calcium Ionized Calcium Phosphorus Magnesium Iron TIBC Ferritin Total Bilirubin Direct Bilirubin AST ALT Alkaline Phosphatase Total Creatine Kinase CK-MB (CK-2) Troponin T C-Reactive Protein Serum Total Protein Total Protein Albumin Tobox-3-Oyokrurcf Uklxa-6-Kbbhsgica PEP Interpretation Triglycerides LDL Cholesterol Direct HDL Cholesterol Free T4 PTH Intact Urine WBC (Auto) Urine Creatinine Salicylates Acetaminophen Crossmatch 03/21/19 03/22/19 03/22/19 23:38 05:08 05:51 WBC RBC Hgb Hct MCV MCHC RDW Plt Count Lymph % (Auto) [place] % (Auto) Lymph # [place] # Seg Neutrophils % Seg Neuts % (Manual) Lymphocytes % (Manual) Monocytes % (Manual) Nucleated RBC % Seg Neutrophils # Seg Neutrophils # Man Lymphocytes # (Manual) Monocytes # (Manual) PT INR D-Dimer Heparin Anti-Xa Level POC ABG pH 7.283 L ABG pH POC ABG pCO2 POC ABG pO2 53 L ABG pO2 ABG HCO3 ABG O2 Saturation ABG Base Excess ABG Hemoglobin Oxyhemoglobin Sodium Potassium Chloride Carbon Dioxide BUN Creatinine Glucose POC Glucose 149 H 131 H Lactic Acid Calcium Ionized Calcium Phosphorus Magnesium Iron TIBC Ferritin Total Bilirubin Direct Bilirubin AST ALT Alkaline Phosphatase Total Creatine Kinase CK-MB (CK-2) Troponin T C-Reactive Protein Serum Total Protein Total Protein Albumin Wacny-1-Xjplsgvjs Lzczw-7-Tspfgruri PEP Interpretation Triglycerides LDL Cholesterol Direct HDL Cholesterol Free T4 PTH Intact Urine WBC (Auto) Urine Creatinine Salicylates Acetaminophen Crossmatch 03/22/19 03/22/19 03/22/19 08:00 08:00 18:19 WBC 36.7 H RBC Hgb 11.0 L Hct 33.5 L MCV MCHC RDW 15.5 H Plt Count 43 L Lymph % (Auto) [place] % (Auto) Lymph # [place] # Seg Neutrophils % Seg Neuts % (Manual) 87.0 H Lymphocytes % (Manual) 7.0 L Monocytes % (Manual) Nucleated RBC % Seg Neutrophils # Seg Neutrophils # Man 31.9 H Lymphocytes # (Manual) Monocytes # (Manual) PT INR D-Dimer Heparin Anti-Xa Level POC ABG pH ABG pH POC ABG pCO2 46.4 H POC ABG pO2 108 H ABG pO2 ABG HCO3 ABG O2 Saturation ABG Base Excess ABG Hemoglobin Oxyhemoglobin Sodium 132 L Potassium 5.6 H Chloride 89.6 L Carbon Dioxide 20 L BUN 101 H Creatinine 7.4 H Glucose 124 H POC Glucose Lactic Acid Calcium 5.2 L* Ionized Calcium Phosphorus Magnesium Iron TIBC Ferritin Total Bilirubin 2.80 H Direct Bilirubin AST 119 H ALT 86 H Alkaline Phosphatase 245 H Total Creatine Kinase CK-MB (CK-2) Troponin T C-Reactive Protein Serum Total Protein Total Protein 5.6 L Albumin 2.5 L Epoyr-0-Jrcgtdzww Nnjkv-1-Vnexudkiw PEP Interpretation Triglycerides LDL Cholesterol Direct HDL Cholesterol Free T4 PTH Intact Urine WBC (Auto) Urine Creatinine Salicylates Acetaminophen Crossmatch 03/22/19 03/23/19 03/23/19 20:37 04:49 05:28 WBC 35.9 H RBC Hgb 10.8 L Hct 33.2 L MCV MCHC RDW 15.5 H Plt Count 49 L Lymph % (Auto) [place] % (Auto) Lymph # [place] # Seg Neutrophils % Seg Neuts % (Manual) 81.0 H Lymphocytes % (Manual) 3.5 L Monocytes % (Manual) Nucleated RBC % Seg Neutrophils # Seg Neutrophils # Man 29.1 H Lymphocytes # (Manual) Monocytes # (Manual) 1.4 H PT INR D-Dimer Heparin Anti-Xa Level POC ABG pH 7.296 L ABG pH POC ABG pCO2 46.2 H POC ABG pO2 ABG pO2 ABG HCO3 ABG O2 Saturation ABG Base Excess ABG Hemoglobin Oxyhemoglobin Sodium 129 L Potassium 5.2 H Chloride 91.1 L Carbon Dioxide BUN 91 H Creatinine 6.6 H Glucose 190 H POC Glucose Lactic Acid Calcium 5.3 L* Ionized Calcium Phosphorus Magnesium Iron TIBC Ferritin Total Bilirubin 1.80 H Direct Bilirubin AST 80 H ALT 62 H Alkaline Phosphatase 209 H Total Creatine Kinase 9758 H CK-MB (CK-2) Troponin T C-Reactive Protein Serum Total Protein Total Protein 5.2 L Albumin 2.2 L Magxa-3-Rtzfcvlcs Sjrzp-1-Cveaqgyni PEP Interpretation Triglycerides LDL Cholesterol Direct HDL Cholesterol Free T4 PTH Intact Urine WBC (Auto) Urine Creatinine Salicylates Acetaminophen Crossmatch 03/23/19 03/23/19 03/23/19 05:28 05:31 11:33 WBC 29.7 H RBC 3.59 L Hgb 10.1 L Hct 31.1 L MCV MCHC RDW 15.4 H Plt Count 47 L Lymph % (Auto) [place] % (Auto) Lymph # [place] # Seg Neutrophils % Seg Neuts % (Manual) 89.0 H Lymphocytes % (Manual) 6.0 L Monocytes % (Manual) Nucleated RBC % 1.0 H Seg Neutrophils # Seg Neutrophils # Man 26.4 H Lymphocytes # (Manual) Monocytes # (Manual) PT INR D-Dimer Heparin Anti-Xa Level POC ABG pH ABG pH POC ABG pCO2 POC ABG pO2 ABG pO2 ABG HCO3 ABG O2 Saturation ABG Base Excess ABG Hemoglobin Oxyhemoglobin Sodium Potassium Chloride Carbon Dioxide BUN Creatinine Glucose POC Glucose 122 H 113 H Lactic Acid Calcium Ionized Calcium Phosphorus Magnesium Iron TIBC Ferritin Total Bilirubin Direct Bilirubin AST ALT Alkaline Phosphatase Total Creatine Kinase CK-MB (CK-2) Troponin T C-Reactive Protein Serum Total Protein Total Protein Albumin Ufaoh-5-Euspzqbts Chybl-4-Otespqfqp PEP Interpretation Triglycerides LDL Cholesterol Direct HDL Cholesterol Free T4 PTH Intact Urine WBC (Auto) Urine Creatinine Salicylates Acetaminophen Crossmatch 03/23/19 03/24/19 03/24/19 17:47 00:00 04:50 WBC 35.0 H RBC Hgb 10.4 L Hct 32.4 L MCV MCHC RDW Plt Count 60 L Lymph % (Auto) [place] % (Auto) Lymph # [place] # Seg Neutrophils % Seg Neuts % (Manual) 93.0 H Lymphocytes % (Manual) 5.0 L Monocytes % (Manual) Nucleated RBC % 7.0 H Seg Neutrophils # Seg Neutrophils # Man 32.6 H Lymphocytes # (Manual) Monocytes # (Manual) PT INR D-Dimer Heparin Anti-Xa Level POC ABG pH ABG pH POC ABG pCO2 POC ABG pO2 ABG pO2 ABG HCO3 ABG O2 Saturation ABG Base Excess ABG Hemoglobin Oxyhemoglobin Sodium Potassium Chloride Carbon Dioxide BUN Creatinine Glucose POC Glucose 111 H 108 H Lactic Acid Calcium Ionized Calcium Phosphorus Magnesium Iron TIBC Ferritin Total Bilirubin Direct Bilirubin AST ALT Alkaline Phosphatase Total Creatine Kinase CK-MB (CK-2) Troponin T C-Reactive Protein Serum Total Protein Total Protein Albumin Rfyrn-7-Jkgpwdzya Yxnjn-7-Plxyjpgrp PEP Interpretation Triglycerides LDL Cholesterol Direct HDL Cholesterol Free T4 PTH Intact Urine WBC (Auto) Urine Creatinine Salicylates Acetaminophen Crossmatch 03/24/19 03/24/19 03/24/19 04:50 05:06 12:55 WBC RBC Hgb Hct MCV MCHC RDW Plt Count Lymph % (Auto) [place] % (Auto) Lymph # [place] # Seg Neutrophils % Seg Neuts % (Manual) Lymphocytes % (Manual) Monocytes % (Manual) Nucleated RBC % Seg Neutrophils # Seg Neutrophils # Man Lymphocytes # (Manual) Monocytes # (Manual) PT INR D-Dimer Heparin Anti-Xa Level POC ABG pH ABG pH POC ABG pCO2 POC ABG pO2 ABG pO2 ABG HCO3 ABG O2 Saturation ABG Base Excess ABG Hemoglobin Oxyhemoglobin Sodium 134 L Potassium 5.1 H Chloride 95.3 L Carbon Dioxide 21 L BUN 85 H Creatinine 6.4 H Glucose 109 H POC Glucose 112 H 110 H Lactic Acid Calcium 5.8 L* Ionized Calcium Phosphorus Magnesium Iron TIBC Ferritin Total Bilirubin Direct Bilirubin AST ALT Alkaline Phosphatase Total Creatine Kinase 5747 H CK-MB (CK-2) Troponin T C-Reactive Protein Serum Total Protein Total Protein Albumin Soygi-7-Xlzbekbrv Ugmkm-7-Qenxvxxzr PEP Interpretation Triglycerides LDL Cholesterol Direct HDL Cholesterol Free T4 PTH Intact Urine WBC (Auto) Urine Creatinine Salicylates Acetaminophen Crossmatch 03/24/19 03/25/19 03/25/19 23:29 05:00 05:00 WBC RBC Hgb Hct MCV MCHC RDW Plt Count Lymph % (Auto) [place] % (Auto) Lymph # [place] # Seg Neutrophils % Seg Neuts % (Manual) Lymphocytes % (Manual) Monocytes % (Manual) Nucleated RBC % Seg Neutrophils # Seg Neutrophils # Man Lymphocytes # (Manual) Monocytes # (Manual) PT INR D-Dimer Heparin Anti-Xa Level POC ABG pH ABG pH POC ABG pCO2 POC ABG pO2 ABG pO2 ABG HCO3 ABG O2 Saturation ABG Base Excess ABG Hemoglobin Oxyhemoglobin Sodium 133 L Potassium Chloride 94.0 L Carbon Dioxide 21 L BUN 81 H Creatinine 6.4 H Glucose POC Glucose 109 H Lactic Acid Calcium 5.5 L* Ionized Calcium Phosphorus Magnesium Iron TIBC Ferritin Total Bilirubin Direct Bilirubin AST 80 H ALT Alkaline Phosphatase 202 H Total Creatine Kinase 3589 H CK-MB (CK-2) Troponin T C-Reactive Protein Serum Total Protein Total Protein 5.3 L Albumin 2.4 L Ojcrz-5-Ynkpfshzj Thwme-0-Xbznpyhtn PEP Interpretation Triglycerides LDL Cholesterol Direct HDL Cholesterol Free T4 PTH Intact 329.9 H Urine WBC (Auto) Urine Creatinine Salicylates Acetaminophen Crossmatch 03/25/19 03/25/19 03/26/19 05:00 06:30 04:30 WBC 23.3 H RBC 3.61 L Hgb 10.2 L Hct 31.2 L MCV MCHC RDW Plt Count 57 L Lymph % (Auto) [place] % (Auto) Lymph # [place] # Seg Neutrophils % Seg Neuts % (Manual) 92.0 H Lymphocytes % (Manual) 6.0 L Monocytes % (Manual) Nucleated RBC % Seg Neutrophils # Seg Neutrophils # Man 21.4 H Lymphocytes # (Manual) Monocytes # (Manual) PT INR D-Dimer Heparin Anti-Xa Level POC ABG pH ABG pH 7.326 L POC ABG pCO2 POC ABG pO2 ABG pO2 109.5 H 137.4 H ABG HCO3 18.8 L 18.6 L ABG O2 Saturation ABG Base Excess -4.4 L -6.8 L ABG Hemoglobin 10.1 L 9.9 L Oxyhemoglobin Sodium Potassium Chloride Carbon Dioxide BUN Creatinine Glucose POC Glucose Lactic Acid Calcium Ionized Calcium Phosphorus Magnesium Iron TIBC Ferritin Total Bilirubin Direct Bilirubin AST ALT Alkaline Phosphatase Total Creatine Kinase CK-MB (CK-2) Troponin T C-Reactive Protein Serum Total Protein Total Protein Albumin Ewfax-8-Ycbvutoyr Vniih-3-Ofunzhqzl PEP Interpretation Triglycerides LDL Cholesterol Direct HDL Cholesterol Free T4 PTH Intact Urine WBC (Auto) Urine Creatinine Salicylates Acetaminophen Crossmatch 03/26/19 03/26/19 03/26/19 23:22 Unknown Unknown WBC 19.5 H RBC 3.44 L Hgb 9.8 L Hct 29.9 L MCV MCHC RDW Plt Count 85 L Lymph % (Auto) [place] % (Auto) Lymph # [place] # Seg Neutrophils % Seg Neuts % (Manual) 95.0 H Lymphocytes % (Manual) 3.0 L Monocytes % (Manual) Nucleated RBC % Seg Neutrophils # Seg Neutrophils # Man 18.5 H Lymphocytes # (Manual) 0.6 L Monocytes # (Manual) PT INR D-Dimer Heparin Anti-Xa Level POC ABG pH ABG pH POC ABG pCO2 POC ABG pO2 ABG pO2 ABG HCO3 ABG O2 Saturation ABG Base Excess ABG Hemoglobin Oxyhemoglobin Sodium 135 L Potassium 5.2 H D Chloride 92.2 L Carbon Dioxide 18 L BUN 109 H Creatinine 8.5 H Glucose 117 H POC Glucose 69 L Lactic Acid Calcium 4.5 L* D Ionized Calcium Phosphorus Magnesium Iron TIBC Ferritin Total Bilirubin Direct Bilirubin AST ALT Alkaline Phosphatase Total Creatine Kinase 4527 H CK-MB (CK-2) Troponin T C-Reactive Protein Serum Total Protein Total Protein Albumin Tforr-3-Rksevnhpp Euhuj-9-Ykzntuqqc PEP Interpretation Triglycerides LDL Cholesterol Direct HDL Cholesterol Free T4 PTH Intact Urine WBC (Auto) Urine Creatinine Salicylates Acetaminophen Crossmatch 03/27/19 03/27/19 03/27/19 04:30 04:30 09:00 WBC 19.2 H RBC 3.42 L Hgb 9.9 L Hct 30.0 L MCV MCHC RDW Plt Count 84 L Lymph % (Auto) [place] % (Auto) Lymph # [place] # Seg Neutrophils % Seg Neuts % (Manual) Lymphocytes % (Manual) Monocytes % (Manual) Nucleated RBC % Seg Neutrophils # Seg Neutrophils # Man Lymphocytes # (Manual) Monocytes # (Manual) PT INR D-Dimer Heparin Anti-Xa Level POC ABG pH ABG pH POC ABG pCO2 POC ABG pO2 ABG pO2 ABG HCO3 ABG O2 Saturation ABG Base Excess ABG Hemoglobin Oxyhemoglobin Sodium 135 L Potassium Chloride 93.5 L Carbon Dioxide BUN 84 H Creatinine 7.1 H Glucose POC Glucose Lactic Acid Calcium 5.0 L* Ionized Calcium Phosphorus Magnesium Iron TIBC Ferritin Total Bilirubin Direct Bilirubin AST 78 H ALT Alkaline Phosphatase 135 H Total Creatine Kinase 4677 H CK-MB (CK-2) Troponin T C-Reactive Protein Serum Total Protein Total Protein 4.8 L Albumin 2.3 L Qghed-9-Lmwtgsbpm Zebce-0-Pakelvyrf PEP Interpretation Triglycerides 409 H LDL Cholesterol Direct HDL Cholesterol Free T4 PTH Intact Urine WBC (Auto) Urine Creatinine Salicylates Acetaminophen Crossmatch 03/27/19 03/27/19 03/27/19 12:37 14:15 14:15 WBC RBC Hgb 9.7 L Hct 29.5 L MCV MCHC RDW Plt Count 87 L Lymph % (Auto) [place] % (Auto) Lymph # [place] # Seg Neutrophils % Seg Neuts % (Manual) Lymphocytes % (Manual) Monocytes % (Manual) Nucleated RBC % Seg Neutrophils # Seg Neutrophils # Man Lymphocytes # (Manual) Monocytes # (Manual) PT 15.9 H INR 1.30 H D-Dimer Heparin Anti-Xa Level POC ABG pH ABG pH POC ABG pCO2 POC ABG pO2 ABG pO2 ABG HCO3 ABG O2 Saturation ABG Base Excess ABG Hemoglobin Oxyhemoglobin Sodium Potassium Chloride Carbon Dioxide BUN Creatinine Glucose POC Glucose 129 H Lactic Acid Calcium Ionized Calcium Phosphorus Magnesium Iron TIBC Ferritin Total Bilirubin Direct Bilirubin AST ALT Alkaline Phosphatase Total Creatine Kinase CK-MB (CK-2) Troponin T C-Reactive Protein Serum Total Protein Total Protein Albumin Ffkaw-2-Zldprluww Pzoaw-3-Chiaraxkm PEP Interpretation Triglycerides LDL Cholesterol Direct HDL Cholesterol Free T4 PTH Intact Urine WBC (Auto) Urine Creatinine Salicylates Acetaminophen Crossmatch 03/27/19 03/27/19 03/27/19 18:00 19:22 19:23 WBC RBC Hgb Hct MCV MCHC RDW Plt Count Lymph % (Auto) [place] % (Auto) Lymph # [place] # Seg Neutrophils % Seg Neuts % (Manual) Lymphocytes % (Manual) Monocytes % (Manual) Nucleated RBC % Seg Neutrophils # Seg Neutrophils # Man Lymphocytes # (Manual) Monocytes # (Manual) PT INR D-Dimer Heparin Anti-Xa Level < 0.10 L POC ABG pH ABG pH POC ABG pCO2 POC ABG pO2 ABG pO2 ABG HCO3 ABG O2 Saturation ABG Base Excess ABG Hemoglobin Oxyhemoglobin Sodium Potassium Chloride Carbon Dioxide BUN Creatinine Glucose POC Glucose 121 H Lactic Acid Calcium Ionized Calcium Phosphorus Magnesium Iron TIBC Ferritin Total Bilirubin Direct Bilirubin AST ALT Alkaline Phosphatase Total Creatine Kinase 4517 H CK-MB (CK-2) Troponin T C-Reactive Protein Serum Total Protein Total Protein Albumin Kqjwn-4-Sxmsdmsiu Xzvlg-4-Oflrfcxtp PEP Interpretation Triglycerides LDL Cholesterol Direct HDL Cholesterol Free T4 PTH Intact Urine WBC (Auto) Urine Creatinine Salicylates Acetaminophen Crossmatch 03/27/19 03/27/19 03/28/19 22:10 23:52 03:49 WBC RBC Hgb Hct MCV MCHC RDW Plt Count Lymph % (Auto) [place] % (Auto) Lymph # [place] # Seg Neutrophils % Seg Neuts % (Manual) Lymphocytes % (Manual) Monocytes % (Manual) Nucleated RBC % Seg Neutrophils # Seg Neutrophils # Man Lymphocytes # (Manual) Monocytes # (Manual) PT INR D-Dimer Heparin Anti-Xa Level POC ABG pH 7.338 L ABG pH POC ABG pCO2 33.1 L POC ABG pO2 ABG pO2 ABG HCO3 ABG O2 Saturation ABG Base Excess ABG Hemoglobin Oxyhemoglobin Sodium Potassium Chloride Carbon Dioxide BUN Creatinine Glucose POC Glucose 113 H 117 H Lactic Acid Calcium Ionized Calcium Phosphorus Magnesium Iron TIBC Ferritin Total Bilirubin Direct Bilirubin AST ALT Alkaline Phosphatase Total Creatine Kinase CK-MB (CK-2) Troponin T C-Reactive Protein Serum Total Protein Total Protein Albumin Gpbul-9-Rxkcjntrz Qdnmm-7-Owdiwpozz PEP Interpretation Triglycerides LDL Cholesterol Direct HDL Cholesterol Free T4 PTH Intact Urine WBC (Auto) Urine Creatinine Salicylates Acetaminophen Crossmatch 03/28/19 03/28/19 03/28/19 05:13 05:13 06:18 WBC RBC Hgb Hct MCV MCHC RDW Plt Count Lymph % (Auto) [place] % (Auto) Lymph # [place] # Seg Neutrophils % Seg Neuts % (Manual) Lymphocytes % (Manual) Monocytes % (Manual) Nucleated RBC % Seg Neutrophils # Seg Neutrophils # Man Lymphocytes # (Manual) Monocytes # (Manual) PT INR D-Dimer Heparin Anti-Xa Level 0.23 L POC ABG pH ABG pH POC ABG pCO2 POC ABG pO2 ABG pO2 ABG HCO3 ABG O2 Saturation ABG Base Excess ABG Hemoglobin Oxyhemoglobin Sodium 135 L Potassium 5.5 H D Chloride 95.1 L Carbon Dioxide 16 L D BUN 129 H Creatinine 9.3 H Glucose 158 H POC Glucose 202 H Lactic Acid Calcium 4.0 L* D Ionized Calcium Phosphorus 12.40 H Magnesium Iron TIBC Ferritin Total Bilirubin Direct Bilirubin AST ALT Alkaline Phosphatase Total Creatine Kinase 4266 H CK-MB (CK-2) Troponin T C-Reactive Protein Serum Total Protein Total Protein Albumin Wmwth-0-Njahekqen Xehld-8-Novwlfkiv PEP Interpretation Triglycerides LDL Cholesterol Direct HDL Cholesterol Free T4 PTH Intact Urine WBC (Auto) Urine Creatinine Salicylates Acetaminophen Crossmatch 03/28/19 03/28/19 03/28/19 08:25 10:00 12:00 WBC RBC Hgb 4.9 L* D Hct 15.4 L* D MCV MCHC RDW Plt Count Lymph % (Auto) [place] % (Auto) Lymph # [place] # Seg Neutrophils % Seg Neuts % (Manual) Lymphocytes % (Manual) Monocytes % (Manual) Nucleated RBC % Seg Neutrophils # Seg Neutrophils # Man Lymphocytes # (Manual) Monocytes # (Manual) PT 17.9 H INR 1.52 H D-Dimer 4845.98 H Heparin Anti-Xa Level POC ABG pH ABG pH POC ABG pCO2 POC ABG pO2 ABG pO2 ABG HCO3 ABG O2 Saturation ABG Base Excess ABG Hemoglobin Oxyhemoglobin Sodium Potassium Chloride Carbon Dioxide BUN Creatinine Glucose POC Glucose Lactic Acid Calcium Ionized Calcium Phosphorus Magnesium Iron TIBC Ferritin Total Bilirubin Direct Bilirubin AST ALT Alkaline Phosphatase Total Creatine Kinase CK-MB (CK-2) Troponin T C-Reactive Protein Serum Total Protein Total Protein Albumin Uszfx-3-Dxcnzddmq Febud-8-Senusznfl PEP Interpretation Triglycerides LDL Cholesterol Direct HDL Cholesterol Free T4 PTH Intact Urine WBC (Auto) Urine Creatinine Salicylates Acetaminophen Crossmatch See Detail 03/28/19 03/28/19 03/28/19 12:28 14:10 17:43 WBC RBC Hgb 5.9 L* Hct 18.3 L* MCV MCHC RDW Plt Count Lymph % (Auto) [place] % (Auto) Lymph # [place] # Seg Neutrophils % Seg Neuts % (Manual) Lymphocytes % (Manual) Monocytes % (Manual) Nucleated RBC % Seg Neutrophils # Seg Neutrophils # Man Lymphocytes # (Manual) Monocytes # (Manual) PT INR D-Dimer Heparin Anti-Xa Level POC ABG pH ABG pH POC ABG pCO2 POC ABG pO2 ABG pO2 ABG HCO3 ABG O2 Saturation ABG Base Excess ABG Hemoglobin Oxyhemoglobin Sodium Potassium Chloride Carbon Dioxide BUN Creatinine Glucose POC Glucose 153 H 159 H Lactic Acid Calcium Ionized Calcium Phosphorus Magnesium Iron TIBC Ferritin Total Bilirubin Direct Bilirubin AST ALT Alkaline Phosphatase Total Creatine Kinase CK-MB (CK-2) Troponin T C-Reactive Protein Serum Total Protein Total Protein Albumin Ywgrt-3-Fqohonptg Akizo-3-Sspzzepfw PEP Interpretation Triglycerides LDL Cholesterol Direct HDL Cholesterol Free T4 PTH Intact Urine WBC (Auto) Urine Creatinine Salicylates Acetaminophen Crossmatch 03/28/19 03/28/19 03/28/19 18:10 Unknown 23:59 WBC 24.8 H RBC 3.42 L Hgb 10.2 L D Hct 31.1 L D MCV MCHC RDW 15.4 H Plt Count 54 L Lymph % (Auto) [place] % (Auto) Lymph # [place] # Seg Neutrophils % Seg Neuts % (Manual) 91.0 H Lymphocytes % (Manual) 8.0 L Monocytes % (Manual) Nucleated RBC % Seg Neutrophils # Seg Neutrophils # Man 22.6 H Lymphocytes # (Manual) Monocytes # (Manual) PT INR D-Dimer Heparin Anti-Xa Level POC ABG pH ABG pH POC ABG pCO2 POC ABG pO2 ABG pO2 ABG HCO3 ABG O2 Saturation ABG Base Excess ABG Hemoglobin Oxyhemoglobin Sodium Potassium 5.7 H Chloride Carbon Dioxide BUN Creatinine Glucose POC Glucose 107 H Lactic Acid Calcium Ionized Calcium Phosphorus Magnesium Iron TIBC Ferritin Total Bilirubin Direct Bilirubin AST ALT Alkaline Phosphatase Total Creatine Kinase CK-MB (CK-2) Troponin T C-Reactive Protein Serum Total Protein Total Protein Albumin Jkjsw-7-Lklhpqfst Sacsm-5-Chzhkjlae PEP Interpretation Triglycerides LDL Cholesterol Direct HDL Cholesterol Free T4 PTH Intact Urine WBC (Auto) Urine Creatinine Salicylates Acetaminophen Crossmatch 03/29/19 03/29/19 03/29/19 04:29 05:46 06:22 WBC RBC Hgb 8.6 L Hct 25.7 L MCV MCHC RDW Plt Count 93 L Lymph % (Auto) [place] % (Auto) Lymph # [place] # Seg Neutrophils % Seg Neuts % (Manual) Lymphocytes % (Manual) Monocytes % (Manual) Nucleated RBC % Seg Neutrophils # Seg Neutrophils # Man Lymphocytes # (Manual) Monocytes # (Manual) PT INR D-Dimer Heparin Anti-Xa Level POC ABG pH ABG pH POC ABG pCO2 32.2 L POC ABG pO2 ABG pO2 ABG HCO3 ABG O2 Saturation ABG Base Excess ABG Hemoglobin Oxyhemoglobin Sodium Potassium Chloride Carbon Dioxide BUN Creatinine Glucose POC Glucose 113 H Lactic Acid Calcium Ionized Calcium Phosphorus Magnesium Iron TIBC Ferritin Total Bilirubin Direct Bilirubin AST ALT Alkaline Phosphatase Total Creatine Kinase CK-MB (CK-2) Troponin T C-Reactive Protein Serum Total Protein Total Protein Albumin Hfxth-0-Yqrwzminx Kmuto-7-Cavlckffe PEP Interpretation Triglycerides LDL Cholesterol Direct HDL Cholesterol Free T4 PTH Intact Urine WBC (Auto) Urine Creatinine Salicylates Acetaminophen Crossmatch 03/29/19 03/29/19 03/29/19 06:22 06:22 06:22 WBC 23.2 H RBC 2.91 L Hgb 8.6 L Hct 25.8 L MCV MCHC RDW Plt Count 91 L Lymph % (Auto) [place] % (Auto) Lymph # [place] # Seg Neutrophils % Seg Neuts % (Manual) Lymphocytes % (Manual) Monocytes % (Manual) Nucleated RBC % Seg Neutrophils # Seg Neutrophils # Man Lymphocytes # (Manual) Monocytes # (Manual) PT INR D-Dimer Heparin Anti-Xa Level POC ABG pH ABG pH POC ABG pCO2 POC ABG pO2 ABG pO2 ABG HCO3 ABG O2 Saturation ABG Base Excess ABG Hemoglobin Oxyhemoglobin Sodium 133 L Potassium Chloride 93.8 L Carbon Dioxide 18 L BUN 109 H Creatinine 7.4 H Glucose 124 H POC Glucose Lactic Acid Calcium 4.6 L* Ionized Calcium Phosphorus Magnesium Iron TIBC Ferritin Total Bilirubin Direct Bilirubin AST ALT Alkaline Phosphatase Total Creatine Kinase 3401 H CK-MB (CK-2) Troponin T C-Reactive Protein Serum Total Protein Total Protein Albumin Hcyvk-3-Lmuljclmv Favcc-7-Zrmfcerjl PEP Interpretation Triglycerides 309 H LDL Cholesterol Direct HDL Cholesterol Free T4 PTH Intact Urine WBC (Auto) Urine Creatinine Salicylates Acetaminophen Crossmatch 03/29/19 03/29/19 03/29/19 11:48 11:48 18:24 WBC RBC Hgb 7.8 L Hct 23.2 L MCV MCHC RDW Plt Count Lymph % (Auto) [place] % (Auto) Lymph # [place] # Seg Neutrophils % Seg Neuts % (Manual) Lymphocytes % (Manual) Monocytes % (Manual) Nucleated RBC % Seg Neutrophils # Seg Neutrophils # Man Lymphocytes # (Manual) Monocytes # (Manual) PT 15.3 H INR 1.24 H D-Dimer Heparin Anti-Xa Level POC ABG pH ABG pH POC ABG pCO2 POC ABG pO2 ABG pO2 ABG HCO3 ABG O2 Saturation ABG Base Excess ABG Hemoglobin Oxyhemoglobin Sodium Potassium Chloride Carbon Dioxide BUN Creatinine Glucose POC Glucose 122 H Lactic Acid Calcium Ionized Calcium Phosphorus Magnesium Iron TIBC Ferritin Total Bilirubin Direct Bilirubin AST ALT Alkaline Phosphatase Total Creatine Kinase CK-MB (CK-2) Troponin T C-Reactive Protein Serum Total Protein Total Protein Albumin Hszun-5-Nqojwcdws Dskkk-3-Vgafydeqj PEP Interpretation Triglycerides LDL Cholesterol Direct HDL Cholesterol Free T4 PTH Intact Urine WBC (Auto) Urine Creatinine Salicylates Acetaminophen Crossmatch 03/30/19 03/30/19 03/30/19 00:40 04:31 05:04 WBC RBC Hgb 7.6 L Hct 23.0 L MCV MCHC RDW Plt Count Lymph % (Auto) [place] % (Auto) Lymph # [place] # Seg Neutrophils % Seg Neuts % (Manual) Lymphocytes % (Manual) Monocytes % (Manual) Nucleated RBC % Seg Neutrophils # Seg Neutrophils # Man Lymphocytes # (Manual) Monocytes # (Manual) PT INR D-Dimer Heparin Anti-Xa Level POC ABG pH 7.346 L ABG pH POC ABG pCO2 POC ABG pO2 62 L ABG pO2 ABG HCO3 ABG O2 Saturation ABG Base Excess ABG Hemoglobin Oxyhemoglobin Sodium Potassium Chloride Carbon Dioxide BUN 79 H Creatinine 6.4 H Glucose POC Glucose Lactic Acid Calcium 6.1 L D Ionized Calcium Phosphorus Magnesium Iron TIBC Ferritin Total Bilirubin Direct Bilirubin AST ALT Alkaline Phosphatase Total Creatine Kinase CK-MB (CK-2) Troponin T C-Reactive Protein Serum Total Protein Total Protein Albumin Htpry-6-Mnmtdallq Sebng-4-Fvobfgqed PEP Interpretation Triglycerides LDL Cholesterol Direct HDL Cholesterol Free T4 PTH Intact Urine WBC (Auto) Urine Creatinine Salicylates Acetaminophen Crossmatch 03/30/19 03/30/19 03/30/19 08:45 12:09 22:43 WBC 14.3 H RBC 2.33 L Hgb 7.0 L 7.4 L Hct 21.0 L 22.3 L MCV MCHC RDW 15.6 H Plt Count 135 L Lymph % (Auto) [place] % (Auto) Lymph # [place] # Seg Neutrophils % Seg Neuts % (Manual) Lymphocytes % (Manual) Monocytes % (Manual) Nucleated RBC % Seg Neutrophils # Seg Neutrophils # Man Lymphocytes # (Manual) Monocytes # (Manual) PT INR D-Dimer Heparin Anti-Xa Level POC ABG pH ABG pH POC ABG pCO2 POC ABG pO2 ABG pO2 ABG HCO3 ABG O2 Saturation ABG Base Excess ABG Hemoglobin Oxyhemoglobin Sodium Potassium Chloride Carbon Dioxide BUN Creatinine Glucose POC Glucose Lactic Acid Calcium Ionized Calcium 3.7 L Phosphorus Magnesium Iron TIBC Ferritin Total Bilirubin Direct Bilirubin AST ALT Alkaline Phosphatase Total Creatine Kinase CK-MB (CK-2) Troponin T C-Reactive Protein Serum Total Protein Total Protein Albumin Nwsfl-0-Gpcuobqfa Edsmh-0-Skyjzhgme PEP Interpretation Triglycerides LDL Cholesterol Direct HDL Cholesterol Free T4 PTH Intact Urine WBC (Auto) Urine Creatinine Salicylates Acetaminophen Crossmatch 03/30/19 03/30/19 03/31/19 23:38 Unknown 04:44 WBC 11.5 H RBC 2.40 L Hgb 7.3 L Hct 21.9 L MCV MCHC RDW 15.4 H Plt Count Lymph % (Auto) 10.6 L [place] % (Auto) Lymph # [place] # Seg Neutrophils % 81.7 H Seg Neuts % (Manual) Lymphocytes % (Manual) Monocytes % (Manual) Nucleated RBC % Seg Neutrophils # 9.4 H Seg Neutrophils # Man Lymphocytes # (Manual) Monocytes # (Manual) PT INR D-Dimer Heparin Anti-Xa Level POC ABG pH ABG pH POC ABG pCO2 POC ABG pO2 ABG pO2 ABG HCO3 ABG O2 Saturation ABG Base Excess ABG Hemoglobin Oxyhemoglobin Sodium Potassium Chloride Carbon Dioxide BUN Creatinine Glucose POC Glucose 155 H Lactic Acid Calcium Ionized Calcium Phosphorus Magnesium Iron TIBC Ferritin Total Bilirubin Direct Bilirubin 0.4 H AST 63 H ALT Alkaline Phosphatase Total Creatine Kinase CK-MB (CK-2) Troponin T C-Reactive Protein Serum Total Protein Total Protein 4.9 L Albumin 2.2 L Izvre-4-Kjhkjuehe Ipmwm-9-Woqyvqqrz PEP Interpretation Triglycerides LDL Cholesterol Direct HDL Cholesterol Free T4 PTH Intact Urine WBC (Auto) Urine Creatinine Salicylates Acetaminophen Crossmatch 03/31/19 03/31/19 03/31/19 04:44 05:44 08:20 WBC RBC Hgb Hct MCV MCHC RDW Plt Count Lymph % (Auto) [place] % (Auto) Lymph # [place] # Seg Neutrophils % Seg Neuts % (Manual) Lymphocytes % (Manual) Monocytes % (Manual) Nucleated RBC % Seg Neutrophils # Seg Neutrophils # Man Lymphocytes # (Manual) Monocytes # (Manual) PT INR D-Dimer Heparin Anti-Xa Level POC ABG pH ABG pH POC ABG pCO2 53.5 H POC ABG pO2 62 L ABG pO2 ABG HCO3 ABG O2 Saturation ABG Base Excess ABG Hemoglobin Oxyhemoglobin Sodium 135 L Potassium Chloride 96.7 L Carbon Dioxide 19 L BUN 94 H Creatinine 7.8 H Glucose POC Glucose Lactic Acid Calcium 5.3 L* Ionized Calcium Phosphorus 8.20 H Magnesium Iron TIBC Ferritin Total Bilirubin Direct Bilirubin 0.4 H AST 60 H ALT Alkaline Phosphatase Total Creatine Kinase CK-MB (CK-2) Troponin T C-Reactive Protein Serum Total Protein Total Protein 4.8 L Albumin 2.1 L Txcln-0-Xbgeaadou Nbdhf-7-Xxceqtwdt PEP Interpretation Triglycerides LDL Cholesterol Direct HDL Cholesterol Free T4 PTH Intact Urine WBC (Auto) Urine Creatinine Salicylates Acetaminophen Crossmatch 03/31/19 04/01/19 04/01/19 22:14 04:27 04:27 WBC RBC 2.60 L Hgb 8.0 L Hct 24.1 L MCV MCHC RDW 15.7 H Plt Count Lymph % (Auto) 7.9 L [place] % (Auto) Lymph # 0.7 L [place] # Seg Neutrophils % 83.6 H Seg Neuts % (Manual) Lymphocytes % (Manual) Monocytes % (Manual) Nucleated RBC % Seg Neutrophils # Seg Neutrophils # Man Lymphocytes # (Manual) Monocytes # (Manual) PT INR D-Dimer Heparin Anti-Xa Level POC ABG pH 7.286 L ABG pH POC ABG pCO2 54.7 H POC ABG pO2 179 H ABG pO2 ABG HCO3 ABG O2 Saturation ABG Base Excess ABG Hemoglobin Oxyhemoglobin Sodium Potassium Chloride Carbon Dioxide BUN 68 H Creatinine 6.6 H Glucose POC Glucose Lactic Acid Calcium 6.5 L D Ionized Calcium Phosphorus 7.30 H Magnesium Iron TIBC Ferritin Total Bilirubin Direct Bilirubin AST ALT Alkaline Phosphatase Total Creatine Kinase 1652 H CK-MB (CK-2) Troponin T C-Reactive Protein Serum Total Protein Total Protein Albumin Kmtev-7-Nekokfjha Pfczz-1-Gywasllxb PEP Interpretation Triglycerides LDL Cholesterol Direct HDL Cholesterol Free T4 PTH Intact Urine WBC (Auto) Urine Creatinine Salicylates Acetaminophen Crossmatch 04/01/19 04/01/19 04/01/19 05:14 05:37 18:37 WBC RBC Hgb Hct MCV MCHC RDW Plt Count Lymph % (Auto) [place] % (Auto) Lymph # [place] # Seg Neutrophils % Seg Neuts % (Manual) Lymphocytes % (Manual) Monocytes % (Manual) Nucleated RBC % Seg Neutrophils # Seg Neutrophils # Man Lymphocytes # (Manual) Monocytes # (Manual) PT INR D-Dimer Heparin Anti-Xa Level POC ABG pH 7.283 L ABG pH POC ABG pCO2 53.4 H POC ABG pO2 241 H ABG pO2 ABG HCO3 ABG O2 Saturation ABG Base Excess ABG Hemoglobin Oxyhemoglobin Sodium Potassium Chloride Carbon Dioxide BUN Creatinine Glucose POC Glucose 111 H 119 H Lactic Acid Calcium Ionized Calcium Phosphorus Magnesium Iron TIBC Ferritin Total Bilirubin Direct Bilirubin AST ALT Alkaline Phosphatase Total Creatine Kinase CK-MB (CK-2) Troponin T C-Reactive Protein Serum Total Protein Total Protein Albumin Qiysj-8-Lsckehhzj Wevli-2-Vsldxqnjc PEP Interpretation Triglycerides LDL Cholesterol Direct HDL Cholesterol Free T4 PTH Intact Urine WBC (Auto) Urine Creatinine Salicylates Acetaminophen Crossmatch 04/01/19 04/02/19 04/02/19 21:28 04:40 05:03 WBC RBC 2.36 L Hgb 7.2 L Hct 21.9 L MCV MCHC RDW 16.0 H Plt Count Lymph % (Auto) 10.8 L [place] % (Auto) Lymph # 0.8 L [place] # Seg Neutrophils % 80.3 H Seg Neuts % (Manual) Lymphocytes % (Manual) Monocytes % (Manual) Nucleated RBC % Seg Neutrophils # Seg Neutrophils # Man Lymphocytes # (Manual) Monocytes # (Manual) PT INR D-Dimer Heparin Anti-Xa Level POC ABG pH 7.299 L 7.300 L ABG pH POC ABG pCO2 48.2 H 45.2 H POC ABG pO2 133 H 107 H ABG pO2 ABG HCO3 ABG O2 Saturation ABG Base Excess ABG Hemoglobin Oxyhemoglobin Sodium Potassium Chloride Carbon Dioxide BUN Creatinine Glucose POC Glucose Lactic Acid Calcium Ionized Calcium Phosphorus Magnesium Iron TIBC Ferritin Total Bilirubin Direct Bilirubin AST ALT Alkaline Phosphatase Total Creatine Kinase CK-MB (CK-2) Troponin T C-Reactive Protein Serum Total Protein Total Protein Albumin Qjptq-6-Vsndxqsdv Lulht-5-Elrxgpids PEP Interpretation Triglycerides LDL Cholesterol Direct HDL Cholesterol Free T4 PTH Intact Urine WBC (Auto) Urine Creatinine Salicylates Acetaminophen Crossmatch 04/02/19 04/02/19 04/02/19 05:03 05:03 12:15 WBC RBC Hgb 7.4 L Hct 22.6 L MCV MCHC RDW Plt Count Lymph % (Auto) [place] % (Auto) Lymph # [place] # Seg Neutrophils % Seg Neuts % (Manual) Lymphocytes % (Manual) Monocytes % (Manual) Nucleated RBC % Seg Neutrophils # Seg Neutrophils # Man Lymphocytes # (Manual) Monocytes # (Manual) PT INR D-Dimer Heparin Anti-Xa Level POC ABG pH ABG pH POC ABG pCO2 POC ABG pO2 ABG pO2 ABG HCO3 ABG O2 Saturation ABG Base Excess ABG Hemoglobin Oxyhemoglobin Sodium 136 L Potassium Chloride 97.8 L Carbon Dioxide 18 L BUN 82 H Creatinine 8.2 H Glucose POC Glucose Lactic Acid Calcium 6.7 L Ionized Calcium Phosphorus 7.50 H Magnesium Iron 26 L TIBC 138 L Ferritin 607.0 H Total Bilirubin Direct Bilirubin AST ALT Alkaline Phosphatase Total Creatine Kinase CK-MB (CK-2) Troponin T C-Reactive Protein Serum Total Protein Total Protein Albumin Qvtej-7-Gskvfyxte Gequg-0-Gsmmqnzfg PEP Interpretation Triglycerides LDL Cholesterol Direct HDL Cholesterol Free T4 PTH Intact Urine WBC (Auto) Urine Creatinine Salicylates Acetaminophen Crossmatch 04/02/19 04/02/19 04/03/19 16:34 17:14 04:18 WBC RBC Hgb Hct MCV MCHC RDW Plt Count Lymph % (Auto) [place] % (Auto) Lymph # [place] # Seg Neutrophils % Seg Neuts % (Manual) Lymphocytes % (Manual) Monocytes % (Manual) Nucleated RBC % Seg Neutrophils # Seg Neutrophils # Man Lymphocytes # (Manual) Monocytes # (Manual) PT INR D-Dimer Heparin Anti-Xa Level POC ABG pH ABG pH POC ABG pCO2 POC ABG pO2 146 H ABG pO2 ABG HCO3 ABG O2 Saturation ABG Base Excess ABG Hemoglobin Oxyhemoglobin Sodium Potassium Chloride Carbon Dioxide BUN Creatinine Glucose POC Glucose 108 H Lactic Acid Calcium Ionized Calcium Phosphorus Magnesium Iron TIBC Ferritin Total Bilirubin Direct Bilirubin AST ALT Alkaline Phosphatase Total Creatine Kinase CK-MB (CK-2) Troponin T C-Reactive Protein Serum Total Protein Total Protein Albumin Jxuro-6-Sobasgkwf Revnm-6-Ncimjrzou PEP Interpretation Triglycerides LDL Cholesterol Direct HDL Cholesterol Free T4 PTH Intact Urine WBC (Auto) Urine Creatinine Salicylates Acetaminophen Crossmatch See Detail 04/03/19 04/03/19 04/03/19 04:25 08:30 18:24 WBC RBC 2.40 L Hgb 7.3 L Hct 21.9 L MCV MCHC RDW Plt Count Lymph % (Auto) [place] % (Auto) 7.7 H Lymph # 0.9 L [place] # Seg Neutrophils % 74.6 H Seg Neuts % (Manual) Lymphocytes % (Manual) Monocytes % (Manual) Nucleated RBC % Seg Neutrophils # Seg Neutrophils # Man Lymphocytes # (Manual) Monocytes # (Manual) PT INR D-Dimer Heparin Anti-Xa Level POC ABG pH ABG pH POC ABG pCO2 POC ABG pO2 ABG pO2 ABG HCO3 ABG O2 Saturation ABG Base Excess ABG Hemoglobin Oxyhemoglobin Sodium 136 L Potassium Chloride 97.0 L Carbon Dioxide BUN 58 H Creatinine 7.3 H Glucose POC Glucose 106 H Lactic Acid Calcium 7.5 L Ionized Calcium Phosphorus 5.80 H D Magnesium Iron TIBC Ferritin Total Bilirubin Direct Bilirubin AST ALT Alkaline Phosphatase Total Creatine Kinase CK-MB (CK-2) Troponin T C-Reactive Protein Serum Total Protein Total Protein Albumin Hlyrx-4-Ylxvjwoax Egygp-7-Oxpfnqmii PEP Interpretation Triglycerides LDL Cholesterol Direct HDL Cholesterol Free T4 PTH Intact Urine WBC (Auto) Urine Creatinine Salicylates Acetaminophen Crossmatch 04/03/19 04/04/19 04/04/19 23:43 04:47 04:47 WBC RBC 2.72 L Hgb 8.3 L Hct 24.7 L MCV MCHC RDW 15.6 H Plt Count Lymph % (Auto) [place] % (Auto) 10.1 H Lymph # 0.8 L [place] # Seg Neutrophils % 71.4 H Seg Neuts % (Manual) Lymphocytes % (Manual) Monocytes % (Manual) Nucleated RBC % Seg Neutrophils # Seg Neutrophils # Man Lymphocytes # (Manual) Monocytes # (Manual) PT INR D-Dimer Heparin Anti-Xa Level POC ABG pH ABG pH POC ABG pCO2 POC ABG pO2 ABG pO2 123.8 H ABG HCO3 ABG O2 Saturation ABG Base Excess -3.0 L ABG Hemoglobin 7.9 L Oxyhemoglobin Sodium 134 L Potassium Chloride 97.9 L Carbon Dioxide BUN 64 H Creatinine 8.1 H Glucose POC Glucose Lactic Acid Calcium 7.2 L Ionized Calcium Phosphorus Magnesium Iron TIBC Ferritin Total Bilirubin Direct Bilirubin AST ALT Alkaline Phosphatase Total Creatine Kinase CK-MB (CK-2) Troponin T C-Reactive Protein Serum Total Protein Total Protein Albumin Lxbel-2-Jepxuporp Pcmyv-2-Rymyurfub PEP Interpretation Triglycerides LDL Cholesterol Direct HDL Cholesterol Free T4 PTH Intact Urine WBC (Auto) Urine Creatinine Salicylates Acetaminophen Crossmatch 04/04/19 04/04/19 04/04/19 06:07 13:40 18:18 WBC RBC Hgb Hct MCV MCHC RDW Plt Count Lymph % (Auto) [place] % (Auto) Lymph # [place] # Seg Neutrophils % Seg Neuts % (Manual) Lymphocytes % (Manual) Monocytes % (Manual) Nucleated RBC % Seg Neutrophils # Seg Neutrophils # Man Lymphocytes # (Manual) Monocytes # (Manual) PT INR D-Dimer Heparin Anti-Xa Level POC ABG pH ABG pH POC ABG pCO2 POC ABG pO2 ABG pO2 95.9 H ABG HCO3 ABG O2 Saturation ABG Base Excess -3.0 L ABG Hemoglobin 8.5 L Oxyhemoglobin Sodium Potassium Chloride Carbon Dioxide BUN Creatinine Glucose POC Glucose 107 H 107 H Lactic Acid Calcium Ionized Calcium Phosphorus Magnesium Iron TIBC Ferritin Total Bilirubin Direct Bilirubin AST ALT Alkaline Phosphatase Total Creatine Kinase CK-MB (CK-2) Troponin T C-Reactive Protein Serum Total Protein Total Protein Albumin Jryzu-0-Ncrkflywd Hhndj-3-Pstnqahge PEP Interpretation Triglycerides LDL Cholesterol Direct HDL Cholesterol Free T4 PTH Intact Urine WBC (Auto) Urine Creatinine Salicylates Acetaminophen Crossmatch 04/04/19 04/05/19 04/05/19 21:22 04:09 04:09 WBC RBC 2.76 L Hgb 8.4 L Hct 25.4 L MCV MCHC RDW 15.8 H Plt Count 133 L Lymph % (Auto) [place] % (Auto) 9.6 H Lymph # 0.7 L [place] # Seg Neutrophils % 72.6 H Seg Neuts % (Manual) Lymphocytes % (Manual) Monocytes % (Manual) Nucleated RBC % Seg Neutrophils # Seg Neutrophils # Man Lymphocytes # (Manual) Monocytes # (Manual) PT INR D-Dimer Heparin Anti-Xa Level POC ABG pH ABG pH POC ABG pCO2 47.2 H POC ABG pO2 137 H ABG pO2 ABG HCO3 ABG O2 Saturation ABG Base Excess ABG Hemoglobin Oxyhemoglobin Sodium 136 L Potassium Chloride Carbon Dioxide BUN 46 H Creatinine 6.7 H Glucose POC Glucose Lactic Acid Calcium 7.7 L Ionized Calcium Phosphorus Magnesium Iron TIBC Ferritin Total Bilirubin Direct Bilirubin AST ALT Alkaline Phosphatase Total Creatine Kinase CK-MB (CK-2) Troponin T C-Reactive Protein Serum Total Protein Total Protein Albumin Upuxm-0-Bhejoekww Jktmv-8-Xxplrjphs PEP Interpretation Triglycerides LDL Cholesterol Direct HDL Cholesterol Free T4 PTH Intact Urine WBC (Auto) Urine Creatinine Salicylates Acetaminophen Crossmatch 04/05/19 04/05/19 04/05/19 05:28 06:14 16:50 WBC RBC Hgb Hct MCV MCHC RDW Plt Count Lymph % (Auto) [place] % (Auto) Lymph # [place] # Seg Neutrophils % Seg Neuts % (Manual) Lymphocytes % (Manual) Monocytes % (Manual) Nucleated RBC % Seg Neutrophils # Seg Neutrophils # Man Lymphocytes # (Manual) Monocytes # (Manual) PT INR D-Dimer Heparin Anti-Xa Level POC ABG pH ABG pH POC ABG pCO2 POC ABG pO2 67 L ABG pO2 ABG HCO3 ABG O2 Saturation ABG Base Excess ABG Hemoglobin Oxyhemoglobin Sodium Potassium Chloride Carbon Dioxide BUN Creatinine Glucose POC Glucose 108 H Lactic Acid Calcium Ionized Calcium Phosphorus Magnesium Iron TIBC Ferritin Total Bilirubin Direct Bilirubin AST ALT Alkaline Phosphatase Total Creatine Kinase CK-MB (CK-2) Troponin T C-Reactive Protein Serum Total Protein Total Protein Albumin Hvrwc-9-Qxfzlvdwq Kyxbt-8-Bqabzuuyl PEP Interpretation Triglycerides LDL Cholesterol Direct HDL Cholesterol Free T4 PTH Intact Urine WBC (Auto) 40.0 H Urine Creatinine Salicylates Acetaminophen Crossmatch 04/05/19 04/06/19 04/06/19 17:22 00:13 04:44 WBC RBC 2.48 L Hgb 7.5 L Hct 22.9 L MCV MCHC RDW 16.0 H Plt Count 107 L Lymph % (Auto) [place] % (Auto) 10.7 H Lymph # 1.0 L [place] # Seg Neutrophils % Seg Neuts % (Manual) Lymphocytes % (Manual) Monocytes % (Manual) Nucleated RBC % Seg Neutrophils # Seg Neutrophils # Man Lymphocytes # (Manual) Monocytes # (Manual) PT INR D-Dimer Heparin Anti-Xa Level POC ABG pH ABG pH POC ABG pCO2 POC ABG pO2 ABG pO2 ABG HCO3 ABG O2 Saturation ABG Base Excess ABG Hemoglobin Oxyhemoglobin Sodium Potassium Chloride Carbon Dioxide BUN Creatinine Glucose POC Glucose 118 H 138 H Lactic Acid Calcium Ionized Calcium Phosphorus Magnesium Iron TIBC Ferritin Total Bilirubin Direct Bilirubin AST ALT Alkaline Phosphatase Total Creatine Kinase CK-MB (CK-2) Troponin T C-Reactive Protein Serum Total Protein Total Protein Albumin Xcnub-4-Txjcamgoe Jzjyp-7-Cmiqadhxz PEP Interpretation Triglycerides LDL Cholesterol Direct HDL Cholesterol Free T4 PTH Intact Urine WBC (Auto) Urine Creatinine Salicylates Acetaminophen Crossmatch 04/06/19 04/06/19 04/06/19 04:44 05:20 05:23 WBC RBC Hgb Hct MCV MCHC RDW Plt Count Lymph % (Auto) [place] % (Auto) Lymph # [place] # Seg Neutrophils % Seg Neuts % (Manual) Lymphocytes % (Manual) Monocytes % (Manual) Nucleated RBC % Seg Neutrophils # Seg Neutrophils # Man Lymphocytes # (Manual) Monocytes # (Manual) PT INR D-Dimer Heparin Anti-Xa Level POC ABG pH ABG pH POC ABG pCO2 POC ABG pO2 ABG pO2 104.0 H ABG HCO3 ABG O2 Saturation ABG Base Excess -2.1 L ABG Hemoglobin 7.3 L Oxyhemoglobin Sodium Potassium Chloride Carbon Dioxide BUN 64 H Creatinine 8.2 H Glucose 103 H POC Glucose 118 H Lactic Acid Calcium 7.3 L Ionized Calcium Phosphorus Magnesium Iron TIBC Ferritin Total Bilirubin Direct Bilirubin AST ALT Alkaline Phosphatase Total Creatine Kinase CK-MB (CK-2) Troponin T C-Reactive Protein Serum Total Protein Total Protein Albumin Cqdfq-0-Ojemoiqle Ydose-3-Wljlyhhhe PEP Interpretation Triglycerides LDL Cholesterol Direct HDL Cholesterol Free T4 PTH Intact Urine WBC (Auto) Urine Creatinine Salicylates Acetaminophen Crossmatch 04/06/19 04/07/19 04/07/19 12:02 05:40 05:40 WBC RBC 2.59 L Hgb 7.9 L Hct 23.8 L MCV MCHC RDW 15.8 H Plt Count 89 L Lymph % (Auto) [place] % (Auto) 10.3 H Lymph # 1.1 L [place] # Seg Neutrophils % Seg Neuts % (Manual) Lymphocytes % (Manual) Monocytes % (Manual) Nucleated RBC % Seg Neutrophils # Seg Neutrophils # Man Lymphocytes # (Manual) Monocytes # (Manual) PT INR D-Dimer Heparin Anti-Xa Level POC ABG pH ABG pH POC ABG pCO2 POC ABG pO2 ABG pO2 ABG HCO3 ABG O2 Saturation ABG Base Excess ABG Hemoglobin Oxyhemoglobin Sodium 136 L Potassium 3.5 L Chloride Carbon Dioxide BUN 46 H Creatinine 6.2 H Glucose POC Glucose 108 H Lactic Acid Calcium 7.9 L Ionized Calcium Phosphorus Magnesium Iron TIBC Ferritin Total Bilirubin Direct Bilirubin AST ALT Alkaline Phosphatase Total Creatine Kinase CK-MB (CK-2) Troponin T C-Reactive Protein Serum Total Protein Total Protein Albumin Ehqsn-0-Pajcdokcr Oixnj-4-Ydcxxpofc PEP Interpretation Triglycerides LDL Cholesterol Direct HDL Cholesterol Free T4 PTH Intact Urine WBC (Auto) Urine Creatinine Salicylates Acetaminophen Crossmatch 04/07/19 04/09/19 04/09/19 12:57 04:28 04:28 WBC RBC 2.85 L Hgb 8.7 L Hct 26.2 L MCV MCHC RDW 15.6 H Plt Count Lymph % (Auto) [place] % (Auto) 10.4 H Lymph # 1.0 L [place] # Seg Neutrophils % 73.3 H Seg Neuts % (Manual) Lymphocytes % (Manual) Monocytes % (Manual) Nucleated RBC % Seg Neutrophils # Seg Neutrophils # Man Lymphocytes # (Manual) Monocytes # (Manual) PT INR D-Dimer Heparin Anti-Xa Level POC ABG pH ABG pH POC ABG pCO2 POC ABG pO2 107 H ABG pO2 ABG HCO3 ABG O2 Saturation ABG Base Excess ABG Hemoglobin Oxyhemoglobin Sodium Potassium 3.5 L Chloride 97.8 L Carbon Dioxide BUN 62 H Creatinine 8.1 H Glucose POC Glucose Lactic Acid Calcium 8.2 L Ionized Calcium Phosphorus 5.10 H Magnesium Iron TIBC Ferritin Total Bilirubin Direct Bilirubin AST ALT Alkaline Phosphatase Total Creatine Kinase CK-MB (CK-2) Troponin T C-Reactive Protein Serum Total Protein Total Protein Albumin Evjxe-6-Jczptqnbm Hdjga-2-Zqycsspoo PEP Interpretation Triglycerides LDL Cholesterol Direct HDL Cholesterol Free T4 PTH Intact Urine WBC (Auto) Urine Creatinine Salicylates Acetaminophen Crossmatch 04/10/19 04/11/19 04/11/19 18:15 00:25 04:16 WBC 11.5 H RBC 2.91 L Hgb 8.9 L Hct 27.6 L MCV 95 H MCHC RDW 17.5 H Plt Count Lymph % (Auto) [place] % (Auto) Lymph # [place] # Seg Neutrophils % Seg Neuts % (Manual) 71.0 H Lymphocytes % (Manual) Monocytes % (Manual) 8.0 H Nucleated RBC % Seg Neutrophils # Seg Neutrophils # Man 8.2 H Lymphocytes # (Manual) Monocytes # (Manual) 0.9 H PT INR D-Dimer Heparin Anti-Xa Level POC ABG pH ABG pH POC ABG pCO2 POC ABG pO2 ABG pO2 ABG HCO3 ABG O2 Saturation ABG Base Excess ABG Hemoglobin Oxyhemoglobin Sodium Potassium Chloride Carbon Dioxide BUN Creatinine Glucose POC Glucose 109 H 114 H Lactic Acid Calcium Ionized Calcium Phosphorus Magnesium Iron TIBC Ferritin Total Bilirubin Direct Bilirubin AST ALT Alkaline Phosphatase Total Creatine Kinase CK-MB (CK-2) Troponin T C-Reactive Protein Serum Total Protein Total Protein Albumin Acpsc-9-Horsjtaht Zzgzl-9-Useyyntvd PEP Interpretation Triglycerides LDL Cholesterol Direct HDL Cholesterol Free T4 PTH Intact Urine WBC (Auto) Urine Creatinine Salicylates Acetaminophen Crossmatch 04/11/19 04/11/19 04/11/19 06:47 09:21 12:15 WBC RBC Hgb Hct MCV MCHC RDW Plt Count Lymph % (Auto) [place] % (Auto) Lymph # [place] # Seg Neutrophils % Seg Neuts % (Manual) Lymphocytes % (Manual) Monocytes % (Manual) Nucleated RBC % Seg Neutrophils # Seg Neutrophils # Man Lymphocytes # (Manual) Monocytes # (Manual) PT INR D-Dimer Heparin Anti-Xa Level POC ABG pH ABG pH POC ABG pCO2 POC ABG pO2 ABG pO2 ABG HCO3 ABG O2 Saturation ABG Base Excess ABG Hemoglobin Oxyhemoglobin Sodium Potassium 3.5 L Chloride Carbon Dioxide BUN 45 H Creatinine 6.0 H Glucose 113 H POC Glucose 106 H 109 H Lactic Acid Calcium Ionized Calcium Phosphorus Magnesium Iron TIBC Ferritin Total Bilirubin Direct Bilirubin AST ALT Alkaline Phosphatase Total Creatine Kinase CK-MB (CK-2) Troponin T C-Reactive Protein Serum Total Protein Total Protein Albumin Imwui-6-Ljbtjveot Jmacf-8-Ukbbesqsz PEP Interpretation Triglycerides LDL Cholesterol Direct HDL Cholesterol Free T4 PTH Intact Urine WBC (Auto) Urine Creatinine Salicylates Acetaminophen Crossmatch 04/11/19 04/12/19 04/12/19 18:42 12:13 23:52 WBC RBC Hgb Hct MCV MCHC RDW Plt Count Lymph % (Auto) [place] % (Auto) Lymph # [place] # Seg Neutrophils % Seg Neuts % (Manual) Lymphocytes % (Manual) Monocytes % (Manual) Nucleated RBC % Seg Neutrophils # Seg Neutrophils # Man Lymphocytes # (Manual) Monocytes # (Manual) PT INR D-Dimer Heparin Anti-Xa Level POC ABG pH ABG pH POC ABG pCO2 POC ABG pO2 ABG pO2 ABG HCO3 ABG O2 Saturation ABG Base Excess ABG Hemoglobin Oxyhemoglobin Sodium Potassium Chloride Carbon Dioxide BUN Creatinine Glucose POC Glucose 107 H 115 H 124 H Lactic Acid Calcium Ionized Calcium Phosphorus Magnesium Iron TIBC Ferritin Total Bilirubin Direct Bilirubin AST ALT Alkaline Phosphatase Total Creatine Kinase CK-MB (CK-2) Troponin T C-Reactive Protein Serum Total Protein Total Protein Albumin Xdfzb-2-Jichvgvzl Avlmj-0-Dgcwpqsbg PEP Interpretation Triglycerides LDL Cholesterol Direct HDL Cholesterol Free T4 PTH Intact Urine WBC (Auto) Urine Creatinine Salicylates Acetaminophen Crossmatch 04/13/19 04/13/19 04/13/19 05:00 05:00 05:47 WBC 11.7 H RBC 2.97 L Hgb 8.8 L Hct 27.3 L MCV MCHC RDW 16.1 H Plt Count Lymph % (Auto) 9.5 L [place] % (Auto) 9.9 H Lymph # 1.1 L [place] # 1.2 H Seg Neutrophils % 78.6 H Seg Neuts % (Manual) Lymphocytes % (Manual) Monocytes % (Manual) Nucleated RBC % Seg Neutrophils # 9.2 H Seg Neutrophils # Man Lymphocytes # (Manual) Monocytes # (Manual) PT INR D-Dimer Heparin Anti-Xa Level POC ABG pH ABG pH POC ABG pCO2 POC ABG pO2 ABG pO2 ABG HCO3 ABG O2 Saturation ABG Base Excess ABG Hemoglobin Oxyhemoglobin Sodium Potassium 3.5 L Chloride Carbon Dioxide BUN 42 H Creatinine 4.6 H Glucose 106 H POC Glucose 107 H Lactic Acid Calcium 10.6 H D Ionized Calcium Phosphorus 5.90 H Magnesium Iron TIBC Ferritin Total Bilirubin Direct Bilirubin AST ALT Alkaline Phosphatase Total Creatine Kinase CK-MB (CK-2) Troponin T C-Reactive Protein Serum Total Protein Total Protein 5.8 L Albumin 2.5 L Tsuxc-5-Cnnrecphd Kovgw-7-Tfgrjvebv PEP Interpretation Triglycerides LDL Cholesterol Direct HDL Cholesterol Free T4 PTH Intact Urine WBC (Auto) Urine Creatinine Salicylates Acetaminophen Crossmatch 04/13/19 04/14/19 04/14/19 17:32 00:00 03:55 WBC RBC Hgb Hct MCV MCHC RDW Plt Count Lymph % (Auto) [place] % (Auto) Lymph # [place] # Seg Neutrophils % Seg Neuts % (Manual) Lymphocytes % (Manual) Monocytes % (Manual) Nucleated RBC % Seg Neutrophils # Seg Neutrophils # Man Lymphocytes # (Manual) Monocytes # (Manual) PT INR D-Dimer Heparin Anti-Xa Level POC ABG pH ABG pH POC ABG pCO2 POC ABG pO2 ABG pO2 ABG HCO3 ABG O2 Saturation ABG Base Excess ABG Hemoglobin Oxyhemoglobin Sodium Potassium 3.0 L Chloride Carbon Dioxide BUN 30 H Creatinine 3.1 H Glucose POC Glucose 112 H 120 H Lactic Acid Calcium 10.8 H Ionized Calcium Phosphorus Magnesium Iron TIBC Ferritin Total Bilirubin Direct Bilirubin AST ALT Alkaline Phosphatase Total Creatine Kinase CK-MB (CK-2) Troponin T C-Reactive Protein Serum Total Protein Total Protein Albumin Imigw-4-Jysflzenr Ywcsr-7-Aiomohdce PEP Interpretation Triglycerides LDL Cholesterol Direct HDL Cholesterol Free T4 PTH Intact Urine WBC (Auto) Urine Creatinine Salicylates Acetaminophen Crossmatch 04/14/19 04/14/19 04/15/19 11:56 23:28 05:11 WBC 13.0 H RBC 2.93 L Hgb 8.6 L Hct 26.5 L MCV MCHC RDW 16.5 H Plt Count Lymph % (Auto) 12.2 L [place] % (Auto) 9.1 H Lymph # [place] # 1.2 H Seg Neutrophils % 77.6 H Seg Neuts % (Manual) Lymphocytes % (Manual) Monocytes % (Manual) Nucleated RBC % Seg Neutrophils # 10.1 H Seg Neutrophils # Man Lymphocytes # (Manual) Monocytes # (Manual) PT INR D-Dimer Heparin Anti-Xa Level POC ABG pH ABG pH POC ABG pCO2 POC ABG pO2 ABG pO2 ABG HCO3 ABG O2 Saturation ABG Base Excess ABG Hemoglobin Oxyhemoglobin Sodium Potassium Chloride Carbon Dioxide BUN Creatinine Glucose POC Glucose 109 H 112 H Lactic Acid Calcium Ionized Calcium Phosphorus Magnesium Iron TIBC Ferritin Total Bilirubin Direct Bilirubin AST ALT Alkaline Phosphatase Total Creatine Kinase CK-MB (CK-2) Troponin T C-Reactive Protein Serum Total Protein Total Protein Albumin Xdeag-7-Sjdowruvw Lkmcv-6-Nnxdcrfsp PEP Interpretation Triglycerides LDL Cholesterol Direct HDL Cholesterol Free T4 PTH Intact Urine WBC (Auto) Urine Creatinine Salicylates Acetaminophen Crossmatch 04/15/19 04/15/19 04/15/19 05:11 05:31 18:03 WBC RBC Hgb Hct MCV MCHC RDW Plt Count Lymph % (Auto) [place] % (Auto) Lymph # [place] # Seg Neutrophils % Seg Neuts % (Manual) Lymphocytes % (Manual) Monocytes % (Manual) Nucleated RBC % Seg Neutrophils # Seg Neutrophils # Man Lymphocytes # (Manual) Monocytes # (Manual) PT INR D-Dimer Heparin Anti-Xa Level POC ABG pH ABG pH POC ABG pCO2 POC ABG pO2 ABG pO2 ABG HCO3 ABG O2 Saturation ABG Base Excess ABG Hemoglobin Oxyhemoglobin Sodium Potassium 3.2 L Chloride Carbon Dioxide BUN 44 H Creatinine 3.6 H Glucose 106 H POC Glucose 110 H 121 H Lactic Acid Calcium 12.0 H Ionized Calcium Phosphorus 5.00 H Magnesium Iron TIBC Ferritin Total Bilirubin Direct Bilirubin AST ALT Alkaline Phosphatase Total Creatine Kinase CK-MB (CK-2) Troponin T C-Reactive Protein Serum Total Protein Total Protein Albumin Evvxh-6-Cnbvcmmth Bemis-9-Jgxntazyo PEP Interpretation Triglycerides LDL Cholesterol Direct HDL Cholesterol Free T4 PTH Intact Urine WBC (Auto) Urine Creatinine Salicylates Acetaminophen Crossmatch 04/16/19 04/16/19 04/17/19 05:07 05:07 04:15 WBC 12.6 H RBC 3.12 L Hgb 9.0 L Hct 28.2 L MCV MCHC RDW 16.6 H Plt Count Lymph % (Auto) 10.3 L [place] % (Auto) 9.8 H Lymph # [place] # 1.2 H Seg Neutrophils % 78.2 H Seg Neuts % (Manual) Lymphocytes % (Manual) Monocytes % (Manual) Nucleated RBC % Seg Neutrophils # 9.9 H Seg Neutrophils # Man Lymphocytes # (Manual) Monocytes # (Manual) PT INR D-Dimer Heparin Anti-Xa Level POC ABG pH ABG pH POC ABG pCO2 POC ABG pO2 ABG pO2 ABG HCO3 ABG O2 Saturation ABG Base Excess ABG Hemoglobin Oxyhemoglobin Sodium 147 H 150 H Potassium 3.5 L 3.1 L Chloride Carbon Dioxide 32 H BUN 54 H 65 H Creatinine 3.8 H 4.0 H Glucose 102 H 107 H POC Glucose Lactic Acid Calcium 11.7 H 12.0 H Ionized Calcium Phosphorus 5.40 H Magnesium Iron TIBC Ferritin Total Bilirubin Direct Bilirubin AST ALT Alkaline Phosphatase Total Creatine Kinase CK-MB (CK-2) Troponin T C-Reactive Protein 7.10 H Serum Total Protein Total Protein Albumin Whbkm-4-Awjjkvgtl Vpany-9-Mlqvgpdrs PEP Interpretation Triglycerides LDL Cholesterol Direct HDL Cholesterol Free T4 PTH Intact Urine WBC (Auto) Urine Creatinine Salicylates Acetaminophen Crossmatch 04/17/19 04/17/19 04/17/19 04:15 06:05 12:49 WBC 15.8 H RBC 3.32 L Hgb 9.5 L Hct 29.9 L MCV MCHC RDW 16.9 H Plt Count Lymph % (Auto) 12.6 L [place] % (Auto) 11.1 H Lymph # [place] # 1.7 H Seg Neutrophils % 74.7 H Seg Neuts % (Manual) Lymphocytes % (Manual) Monocytes % (Manual) Nucleated RBC % Seg Neutrophils # 11.8 H Seg Neutrophils # Man Lymphocytes # (Manual) Monocytes # (Manual) PT INR D-Dimer Heparin Anti-Xa Level POC ABG pH ABG pH POC ABG pCO2 POC ABG pO2 ABG pO2 ABG HCO3 ABG O2 Saturation ABG Base Excess ABG Hemoglobin Oxyhemoglobin Sodium Potassium Chloride Carbon Dioxide BUN Creatinine Glucose POC Glucose 111 H 108 H Lactic Acid Calcium Ionized Calcium Phosphorus Magnesium Iron TIBC Ferritin Total Bilirubin Direct Bilirubin AST ALT Alkaline Phosphatase Total Creatine Kinase CK-MB (CK-2) Troponin T C-Reactive Protein Serum Total Protein Total Protein Albumin Czlxf-2-Vnbjjdbrr Ggmym-3-Gbymggqfp PEP Interpretation Triglycerides LDL Cholesterol Direct HDL Cholesterol Free T4 PTH Intact Urine WBC (Auto) Urine Creatinine Salicylates Acetaminophen Crossmatch 04/18/19 04/18/19 04/18/19 00:23 04:41 04:41 WBC 19.4 H RBC 3.03 L Hgb 8.6 L Hct 27.5 L MCV MCHC 31 L RDW 16.9 H Plt Count Lymph % (Auto) [place] % (Auto) Lymph # [place] # Seg Neutrophils % Seg Neuts % (Manual) Lymphocytes % (Manual) Monocytes % (Manual) Nucleated RBC % Seg Neutrophils # Seg Neutrophils # Man Lymphocytes # (Manual) Monocytes # (Manual) PT INR D-Dimer Heparin Anti-Xa Level POC ABG pH ABG pH POC ABG pCO2 POC ABG pO2 ABG pO2 ABG HCO3 ABG O2 Saturation ABG Base Excess ABG Hemoglobin Oxyhemoglobin Sodium 152 H Potassium 3.0 L Chloride Carbon Dioxide BUN 80 H Creatinine 4.3 H Glucose 103 H POC Glucose 115 H Lactic Acid Calcium 11.4 H Ionized Calcium Phosphorus Magnesium Iron TIBC Ferritin Total Bilirubin Direct Bilirubin AST ALT Alkaline Phosphatase Total Creatine Kinase CK-MB (CK-2) Troponin T C-Reactive Protein Serum Total Protein Total Protein Albumin Psmoi-0-Bstnkpxjo Mzijx-2-Dfwjtdjtw PEP Interpretation Triglycerides LDL Cholesterol Direct HDL Cholesterol Free T4 PTH Intact Urine WBC (Auto) Urine Creatinine Salicylates Acetaminophen Crossmatch 04/18/19 04/18/19 04/18/19 06:17 12:16 18:10 WBC RBC Hgb Hct MCV MCHC RDW Plt Count Lymph % (Auto) [place] % (Auto) Lymph # [place] # Seg Neutrophils % Seg Neuts % (Manual) Lymphocytes % (Manual) Monocytes % (Manual) Nucleated RBC % Seg Neutrophils # Seg Neutrophils # Man Lymphocytes # (Manual) Monocytes # (Manual) PT INR D-Dimer Heparin Anti-Xa Level POC ABG pH ABG pH POC ABG pCO2 POC ABG pO2 ABG pO2 ABG HCO3 ABG O2 Saturation ABG Base Excess ABG Hemoglobin Oxyhemoglobin Sodium Potassium Chloride Carbon Dioxide BUN Creatinine Glucose POC Glucose 124 H 119 H 111 H Lactic Acid Calcium Ionized Calcium Phosphorus Magnesium Iron TIBC Ferritin Total Bilirubin Direct Bilirubin AST ALT Alkaline Phosphatase Total Creatine Kinase CK-MB (CK-2) Troponin T C-Reactive Protein Serum Total Protein Total Protein Albumin Dhudb-0-Thysmeemu Mdyji-7-Tvmcymcpu PEP Interpretation Triglycerides LDL Cholesterol Direct HDL Cholesterol Free T4 PTH Intact Urine WBC (Auto) Urine Creatinine Salicylates Acetaminophen Crossmatch 04/19/19 04/19/19 04/20/19 03:49 05:27 09:09 WBC RBC Hgb Hct MCV MCHC RDW Plt Count Lymph % (Auto) [place] % (Auto) Lymph # [place] # Seg Neutrophils % Seg Neuts % (Manual) Lymphocytes % (Manual) Monocytes % (Manual) Nucleated RBC % Seg Neutrophils # Seg Neutrophils # Man Lymphocytes # (Manual) Monocytes # (Manual) PT INR D-Dimer Heparin Anti-Xa Level POC ABG pH ABG pH POC ABG pCO2 POC ABG pO2 ABG pO2 ABG HCO3 ABG O2 Saturation ABG Base Excess ABG Hemoglobin Oxyhemoglobin Sodium 147 H 150 H Potassium 3.3 L Chloride 108.9 H Carbon Dioxide BUN 45 H 70 H Creatinine 2.9 H 4.1 H Glucose 105 H POC Glucose 124 H Lactic Acid Calcium 10.6 H 11.6 H Ionized Calcium Phosphorus Magnesium Iron TIBC Ferritin Total Bilirubin Direct Bilirubin AST ALT Alkaline Phosphatase Total Creatine Kinase CK-MB (CK-2) Troponin T C-Reactive Protein Serum Total Protein Total Protein Albumin Ymwit-8-Qheohvsat Loofe-7-Bubszfxbs PEP Interpretation Triglycerides LDL Cholesterol Direct HDL Cholesterol Free T4 PTH Intact Urine WBC (Auto) Urine Creatinine Salicylates Acetaminophen Crossmatch 04/20/19 04/20/19 04/21/19 12:29 18:45 01:34 WBC RBC Hgb Hct MCV MCHC RDW Plt Count Lymph % (Auto) [place] % (Auto) Lymph # [place] # Seg Neutrophils % Seg Neuts % (Manual) Lymphocytes % (Manual) Monocytes % (Manual) Nucleated RBC % Seg Neutrophils # Seg Neutrophils # Man Lymphocytes # (Manual) Monocytes # (Manual) PT INR D-Dimer Heparin Anti-Xa Level POC ABG pH ABG pH POC ABG pCO2 POC ABG pO2 ABG pO2 ABG HCO3 ABG O2 Saturation ABG Base Excess ABG Hemoglobin Oxyhemoglobin Sodium Potassium Chloride Carbon Dioxide BUN 40 H Creatinine 2.6 H Glucose 104 H POC Glucose 131 H 134 H Lactic Acid Calcium 11.0 H Ionized Calcium Phosphorus Magnesium Iron TIBC Ferritin Total Bilirubin Direct Bilirubin AST ALT Alkaline Phosphatase Total Creatine Kinase CK-MB (CK-2) Troponin T C-Reactive Protein Serum Total Protein Total Protein Albumin Zuhva-1-Zzehppwrv Djoka-4-Wchpscpop PEP Interpretation Triglycerides LDL Cholesterol Direct HDL Cholesterol Free T4 PTH Intact Urine WBC (Auto) Urine Creatinine Salicylates Acetaminophen Crossmatch 04/21/19 04/21/19 04/22/19 04:22 04:22 04:24 WBC 14.2 H 14.3 H RBC 3.02 L 3.57 L Hgb 8.7 L 10.1 L Hct 27.2 L 32.1 L MCV MCHC RDW 16.7 H 17.2 H Plt Count Lymph % (Auto) [place] % (Auto) Lymph # [place] # Seg Neutrophils % Seg Neuts % (Manual) Lymphocytes % (Manual) Monocytes % (Manual) Nucleated RBC % Seg Neutrophils # Seg Neutrophils # Man Lymphocytes # (Manual) Monocytes # (Manual) PT INR D-Dimer Heparin Anti-Xa Level POC ABG pH ABG pH POC ABG pCO2 POC ABG pO2 ABG pO2 ABG HCO3 ABG O2 Saturation ABG Base Excess ABG Hemoglobin Oxyhemoglobin Sodium Potassium Chloride Carbon Dioxide BUN Creatinine Glucose POC Glucose Lactic Acid Calcium Ionized Calcium Phosphorus Magnesium Iron TIBC Ferritin Total Bilirubin Direct Bilirubin AST ALT Alkaline Phosphatase Total Creatine Kinase CK-MB (CK-2) Troponin T C-Reactive Protein Serum Total Protein 5.7 L Total Protein Albumin 2.3 L Fsbzu-6-Odoacerxw 0.5 H Cjjrv-0-Tdkgmridu 1.0 H PEP Interpretation see below H Triglycerides LDL Cholesterol Direct HDL Cholesterol Free T4 PTH Intact Urine WBC (Auto) Urine Creatinine Salicylates Acetaminophen Crossmatch 04/22/19 04/22/19 04/22/19 04:24 06:37 11:57 WBC RBC Hgb Hct MCV MCHC RDW Plt Count Lymph % (Auto) [place] % (Auto) Lymph # [place] # Seg Neutrophils % Seg Neuts % (Manual) Lymphocytes % (Manual) Monocytes % (Manual) Nucleated RBC % Seg Neutrophils # Seg Neutrophils # Man Lymphocytes # (Manual) Monocytes # (Manual) PT INR D-Dimer Heparin Anti-Xa Level POC ABG pH ABG pH POC ABG pCO2 POC ABG pO2 ABG pO2 ABG HCO3 ABG O2 Saturation ABG Base Excess ABG Hemoglobin Oxyhemoglobin Sodium Potassium Chloride Carbon Dioxide BUN 54 H Creatinine 3.5 H Glucose POC Glucose 113 H 110 H Lactic Acid Calcium 11.4 H Ionized Calcium Phosphorus Magnesium Iron TIBC Ferritin Total Bilirubin Direct Bilirubin AST ALT Alkaline Phosphatase Total Creatine Kinase CK-MB (CK-2) Troponin T C-Reactive Protein Serum Total Protein Total Protein Albumin Wrkfk-0-Vekuccyif Qcpvu-3-Qsxvhjuae PEP Interpretation Triglycerides LDL Cholesterol Direct HDL Cholesterol Free T4 PTH Intact Urine WBC (Auto) Urine Creatinine Salicylates Acetaminophen Crossmatch 04/22/19 04/23/19 04/23/19 18:33 04:06 04:06 WBC 16.1 H RBC 3.36 L Hgb 9.8 L Hct 30.8 L MCV MCHC RDW 17.7 H Plt Count Lymph % (Auto) 9.9 L [place] % (Auto) Lymph # [place] # Seg Neutrophils % 84.2 H Seg Neuts % (Manual) Lymphocytes % (Manual) Monocytes % (Manual) Nucleated RBC % Seg Neutrophils # 13.6 H Seg Neutrophils # Man Lymphocytes # (Manual) Monocytes # (Manual) PT INR D-Dimer Heparin Anti-Xa Level POC ABG pH ABG pH POC ABG pCO2 POC ABG pO2 ABG pO2 ABG HCO3 ABG O2 Saturation ABG Base Excess ABG Hemoglobin Oxyhemoglobin Sodium Potassium Chloride Carbon Dioxide BUN 59 H Creatinine 3.8 H Glucose POC Glucose 120 H Lactic Acid Calcium 12.3 H* Ionized Calcium Phosphorus 5.70 H Magnesium Iron TIBC Ferritin Total Bilirubin Direct Bilirubin AST ALT Alkaline Phosphatase Total Creatine Kinase CK-MB (CK-2) Troponin T C-Reactive Protein Serum Total Protein Total Protein Albumin 3.2 L Rncok-3-Zmbogqspm Bqpfw-1-Xxpytytlz PEP Interpretation Triglycerides LDL Cholesterol Direct HDL Cholesterol Free T4 PTH Intact Urine WBC (Auto) Urine Creatinine Salicylates Acetaminophen Crossmatch 04/23/19 04/24/19 04/24/19 18:06 04:12 04:12 WBC 18.0 H RBC 3.46 L Hgb 9.8 L Hct 31.2 L MCV MCHC 31 L RDW 17.5 H Plt Count Lymph % (Auto) 11.1 L [place] % (Auto) Lymph # [place] # Seg Neutrophils % 81.9 H Seg Neuts % (Manual) Lymphocytes % (Manual) Monocytes % (Manual) Nucleated RBC % Seg Neutrophils # 14.7 H Seg Neutrophils # Man Lymphocytes # (Manual) Monocytes # (Manual) PT INR D-Dimer Heparin Anti-Xa Level POC ABG pH ABG pH POC ABG pCO2 POC ABG pO2 ABG pO2 ABG HCO3 ABG O2 Saturation ABG Base Excess ABG Hemoglobin Oxyhemoglobin Sodium Potassium Chloride Carbon Dioxide BUN 56 H Creatinine 3.6 H Glucose POC Glucose 124 H Lactic Acid Calcium 12.6 H* Ionized Calcium Phosphorus Magnesium Iron TIBC Ferritin Total Bilirubin Direct Bilirubin AST ALT Alkaline Phosphatase Total Creatine Kinase CK-MB (CK-2) Troponin T C-Reactive Protein Serum Total Protein Total Protein Albumin 3.2 L Rzohl-9-Puxaznmyx Vjfbl-6-Sidnpoeyd PEP Interpretation Triglycerides LDL Cholesterol Direct HDL Cholesterol Free T4 PTH Intact Urine WBC (Auto) Urine Creatinine Salicylates Acetaminophen Crossmatch 04/24/19 04/24/19 04/25/19 06:21 11:47 05:58 WBC 18.0 H RBC 2.98 L Hgb 8.3 L Hct 26.5 L MCV MCHC 31 L RDW 17.9 H Plt Count Lymph % (Auto) 10.1 L [place] % (Auto) Lymph # [place] # 0.9 H Seg Neutrophils % 82.8 H Seg Neuts % (Manual) Lymphocytes % (Manual) Monocytes % (Manual) Nucleated RBC % Seg Neutrophils # 15.0 H Seg Neutrophils # Man Lymphocytes # (Manual) Monocytes # (Manual) PT INR D-Dimer Heparin Anti-Xa Level POC ABG pH ABG pH POC ABG pCO2 POC ABG pO2 ABG pO2 ABG HCO3 ABG O2 Saturation ABG Base Excess ABG Hemoglobin Oxyhemoglobin Sodium Potassium Chloride Carbon Dioxide BUN Creatinine Glucose POC Glucose 132 H 106 H Lactic Acid Calcium Ionized Calcium Phosphorus Magnesium Iron TIBC Ferritin Total Bilirubin Direct Bilirubin AST ALT Alkaline Phosphatase Total Creatine Kinase CK-MB (CK-2) Troponin T C-Reactive Protein Serum Total Protein Total Protein Albumin Xijxi-0-Savkxsnol Vmsrz-7-Kztcynbxv PEP Interpretation Triglycerides LDL Cholesterol Direct HDL Cholesterol Free T4 PTH Intact Urine WBC (Auto) Urine Creatinine Salicylates Acetaminophen Crossmatch 04/25/19 04/26/19 04/26/19 05:58 05:57 06:08 WBC RBC Hgb Hct MCV MCHC RDW Plt Count Lymph % (Auto) [place] % (Auto) Lymph # [place] # Seg Neutrophils % Seg Neuts % (Manual) Lymphocytes % (Manual) Monocytes % (Manual) Nucleated RBC % Seg Neutrophils # Seg Neutrophils # Man Lymphocytes # (Manual) Monocytes # (Manual) PT INR D-Dimer Heparin Anti-Xa Level POC ABG pH ABG pH POC ABG pCO2 POC ABG pO2 ABG pO2 ABG HCO3 ABG O2 Saturation ABG Base Excess ABG Hemoglobin Oxyhemoglobin Sodium Potassium 3.2 L Chloride Carbon Dioxide BUN 52 H 48 H Creatinine 3.2 H 2.9 H Glucose 108 H 112 H POC Glucose 109 H Lactic Acid Calcium 11.4 H 12.5 H* Ionized Calcium Phosphorus 5.90 H Magnesium Iron TIBC Ferritin Total Bilirubin Direct Bilirubin AST ALT Alkaline Phosphatase Total Creatine Kinase CK-MB (CK-2) Troponin T C-Reactive Protein Serum Total Protein Total Protein Albumin 3.0 L Ypbsc-6-Qqhmulekg Gghxx-7-Rkulxuksr PEP Interpretation Triglycerides LDL Cholesterol Direct HDL Cholesterol Free T4 PTH Intact Urine WBC (Auto) Urine Creatinine Salicylates Acetaminophen Crossmatch 04/26/19 04/26/19 04/27/19 07:22 13:39 05:05 WBC 11.9 H RBC 3.01 L Hgb 8.6 L Hct 26.3 L MCV MCHC RDW 17.6 H Plt Count Lymph % (Auto) 11.9 L [place] % (Auto) Lymph # [place] # Seg Neutrophils % 78.3 H Seg Neuts % (Manual) Lymphocytes % (Manual) Monocytes % (Manual) Nucleated RBC % Seg Neutrophils # 9.4 H Seg Neutrophils # Man Lymphocytes # (Manual) Monocytes # (Manual) PT INR D-Dimer Heparin Anti-Xa Level POC ABG pH ABG pH POC ABG pCO2 POC ABG pO2 ABG pO2 ABG HCO3 ABG O2 Saturation ABG Base Excess ABG Hemoglobin Oxyhemoglobin Sodium Potassium Chloride Carbon Dioxide BUN 46 H Creatinine 2.8 H Glucose POC Glucose Lactic Acid Calcium > 13.0 H* 12.2 H* Ionized Calcium Phosphorus Magnesium Iron TIBC Ferritin Total Bilirubin Direct Bilirubin AST ALT Alkaline Phosphatase Total Creatine Kinase CK-MB (CK-2) Troponin T C-Reactive Protein Serum Total Protein Total Protein Albumin Dbpdv-4-Rzlsfwacb Idwgp-5-Pblykmgbv PEP Interpretation Triglycerides LDL Cholesterol Direct HDL Cholesterol Free T4 PTH Intact Urine WBC (Auto) Urine Creatinine Salicylates Acetaminophen Crossmatch 04/27/19 04/28/19 05:05 05:17 WBC RBC Hgb Hct MCV MCHC RDW Plt Count Lymph % (Auto) [place] % (Auto) Lymph # [place] # Seg Neutrophils % Seg Neuts % (Manual) Lymphocytes % (Manual) Monocytes % (Manual) Nucleated RBC % Seg Neutrophils # Seg Neutrophils # Man Lymphocytes # (Manual) Monocytes # (Manual) PT INR D-Dimer Heparin Anti-Xa Level POC ABG pH ABG pH POC ABG pCO2 POC ABG pO2 ABG pO2 ABG HCO3 ABG O2 Saturation ABG Base Excess ABG Hemoglobin Oxyhemoglobin Sodium 136 L Potassium 3.2 L Chloride Carbon Dioxide BUN 40 H 34 H Creatinine 2.5 H 2.0 H Glucose 113 H POC Glucose Lactic Acid Calcium 12.3 H* 12.1 H* Ionized Calcium Phosphorus Magnesium Iron TIBC Ferritin Total Bilirubin Direct Bilirubin AST ALT Alkaline Phosphatase Total Creatine Kinase CK-MB (CK-2) Troponin T C-Reactive Protein Serum Total Protein Total Protein 6.2 L Albumin 2.8 L Uxdyp-8-Lkmbixthm Blifc-5-Atcqxtkls PEP Interpretation Triglycerides LDL Cholesterol Direct HDL Cholesterol Free T4 PTH Intact Urine WBC (Auto) Urine Creatinine Salicylates Acetaminophen Crossmatch Allied health notes reviewed: nursing
--- NOTE | 2019-04-28 10:01 | Progress Note ---
Assessment and Plan 1. Acute kidney injury: Vasomotor RUBEN in the setting of shock / volume depletion / Rhabdo. Baseline renal function is unknown. CT abdomen was negative for obstructive nephropathy. Patient was started on hemodialysis on 03/18/19 due to worsening metabolic acidosis and hyperkalemia. Hemodialysis: 03/18, 03/19, 03/20, 03/22, 03/23, 03/24, 03/26, 03/28, 03/29, 03/31, 04/02, 04/04, 04/06, 04/09, 04/11, 04/13, 04/18, 04/20. Monitor for [employer] needs. Renal function continue to improve. Monitor renal function. Renal prognosis is guarded. Avoid nephrotoxic agents. Meds dosage based on GFR. 2. FEN: Hypercalcemia, multifactorial etiology. Patient previously received high dose Vitamin D and activated Vit.D for hypocalcemia. Contributing factor includes immobilization. s/p Pamidronate on 04/26. Ionized Calcium, PTH and Vit.D level ordered. Metabolic acidosis, improved. Volume overload, improving. Monitor lytes. 3. Septic shock: Currently off pressors. Recurrent fever. Per ID recommendation the dialysis catheter was removed on 04/20. 4. Rhabdomyolysis: Improved. 5. A.fib with RVR: On Amiodarone and Metoprolol. 6. Respiratory failure: Extubated. 7. Severe anemia: S/p PRBC and Epogen. 8. Elevated transaminases: Improved. 9. Encephalopathy: Improving. Examination: General appearance: well-developed, appears stated age, obese, not in distress HEENT: Atraumatic EYES: Pupils reacting to light Neck: supple Respiratory: faint rales noted Cardiology: regular, S1S2 heard, no murmur Gastrointestinal: obese, BS heard, not tender Integumentary: no rash noted Neurologic: alert, follows command, conversing, oriented Ext: L UE edema noted Hemodialysis access: None Subjective Date of service: 04/28/19 Principal diagnosis: hypercalcemia - anemia Interval history: Patient was seen and examined at the bedside. Doing ok. Objective - Vital Signs Vital signs: Vital Signs - 12hr 04/27/19 04/28/19 04/28/19 22:58 05:46 08:47 Temperature 98.0 F 98.2 F Pulse Rate 86 81 79 Respiratory 20 18 Rate Blood Pressure 159/91 125/81 133/84 O2 Sat by Pulse 93 94 Oximetry - Lab 04/27/19 05:05 04/28/19 05:17 Most recent lab results ABG pH 7.388 pH Units (7.350-7.450) 04/06/19 05:20 ABG pCO2 38.5 mm Hg 04/06/19 05:20 ABG pO2 104.0 mm Hg (80.0-90.0) H 04/06/19 05:20 ABG HCO3 22.6 mmol/L (20.0-26.0) 04/06/19 05:20 ABG O2 Saturation 97.8 % (95.0-99.0) 04/06/19 05:20 Calcium 12.1 mg/dL (8.4-10.2) H* 04/28/19 05:17 Phosphorus 5.90 mg/dL (2.5-4.5) H 04/26/19 05:57 Magnesium 1.90 mg/dL (1.7-2.3) 04/26/19 05:57 Urine Creatinine 106.6 mg/dL (0.1-20.0) H 03/17/19 16:05 Urine Sodium 95 mmol/L 03/17/19 16:05 Medications & Allergies - Medications Allergies/Adverse Reactions: Allergies No Known Allergies Allergy (Unverified 03/16/19 17:17) Home Medications: Home Medications Medication Instructions Recorded Confirmed Last Taken Type No Known Home Medications [No 04/28/19 04/28/19 Unknown History Reported Home Medications] Active Medications: Generic Name Dose Route Start Last Admin Trade Name Freq PRN Reason Stop Dose Admin Acetaminophen 650 mg 04/02/19 23:26 04/28/19 08:03 Tylenol PO 650 mg Q4H PRN Administration Pain, Mild (1-3),temp>100.5 Albuterol 2.5 mg 03/29/19 13:08 Proventil IH Q4HRT PRN Shortness Of Breath Amiodarone HCl 200 mg 04/15/19 22:00 04/27/19 22:11 Cordarone PO 200 mg BID PAOLO Administration Lipase/Protease/Amylase 1 each 04/20/19 13:[address] 10,500 Unit FEEDTUBE PRN PRN For Clogged Feeding Tube Bacitracin 1 applic 04/17/19 08:00 Antibiotic Oint TP Q4H PRN upper lip sore/open Calcitonin [place] 50 unit 04/27/19 10:00 04/27/19 22:12 Miacalcin SUB-Q 50 unit Q12HR PAOLO Administration Dextrose 50 gm 04/17/19 08:00 D50w (25gm) Vial IV Q1H PRN Hypoglycemia Hydralazine HCl 20 mg 04/14/19 03:00 04/14/19 03:11 Apresoline IV 20 mg Q4H PRN Administration hypertemsion Hydrophilic Ointment 1 applic 03/16/19 15:50 04/19/19 18:24 Vaseline Lip Therapy TP 1 applic Q2HR PRN Administration Dry Lips Sodium Chloride 100 mls @ 999 mls/hr 04/20/19 08:41 Nacl 0.9% IV NEYMAR PRN Hypotension Lansoprazole 30 mg 04/11/19 10:00 04/27/19 22:11 Prevacid Solutab FEEDTUBE 30 mg BID PAOLO Administration Melatonin 5 mg 04/26/19 21:00 04/26/19 23:07 Melatonin PO 5 mg QHS PRN Administration Sleep Metoprolol Tartrate 5 mg 04/16/19 22:24 04/22/19 00:20 Lopressor IV 5 mg Q6H PRN Administration For HR >120 Metoprolol Tartrate 25 mg 04/17/19 20:00 04/28/19 08:47 Lopressor PO 25 mg TID PAOLO Administration Multi-Ingred Cream/Lotion/Oil/Oint 1 applic 03/16/19 15:50 03/19/19 20:10 Artificial Tears Ophth Oint OU 1 applic Q4HR PRN Administration Dry Eye(s) Simple Syrup 15 ml 04/20/19 13:17 Simple Syrup FEEDTUBE PRN PRN Hypoglycemia Simple Syrup 30 ml 04/20/19 13:29 Simple Syrup FEEDTUBE PRN PRN Hypoglycemia Sodium Bicarbonate 325 mg 04/20/19 13:17 04/27/19 11:03 Sodium Bicarbonate FEEDTUBE 325 mg PRN PRN Administration For Clogged Feeding Tube Sodium Hypochlorite 1 applic 04/18/19 11:00 04/27/19 22:12 Dakin's Half Strength TP 1 applicatio BID PAOLO Administration
[2019-04-28] MEDS: AMIODARONE 200 MG TAB PO SCH ×2 (10:43→22:21)
[2019-04-28] MEDS: LANSOPRAZOLE 30 MG SOLUTAB FEEDTUBE SCH ×2 (10:43→22:21)
[2019-04-28] MEDS: CALCITONIN,SALMON,SYNTHETIC 400 UNIT/2 ML INJ MDV SUB-Q SCH ×2 (10:44→23:36)
[2019-04-28] MEDS: SODIUM HYPOCHLORITE, DAKIN'S 1/2 STRENGTH (0.25%) 473 ML TOPICAL SOLN TP SCH ×2 (10:45→22:22)
[2019-04-28 21:19] LABS: Myeloperoxidase Antibody <1.0 AI (<1.0)
[2019-04-29] MEDS: ACETAMINOPHEN 325 MG TAB PO PRN ×2 (09:47→18:50)
[2019-04-29] MEDS: CALCITONIN,SALMON,SYNTHETIC 400 UNIT/2 ML INJ MDV SUB-Q SCH ×2 (09:48→13:56)
[2019-04-29] MEDS: METOPROLOL TARTRATE 25 MG TAB PO SCH ×3 (09:48→21:26)
[2019-04-29] MEDS: AMIODARONE 200 MG TAB PO SCH ×2 (09:48→21:27)
[2019-04-29] MEDS: LANSOPRAZOLE 30 MG SOLUTAB FEEDTUBE SCH ×2 (09:48→21:26)
--- NOTE | 2019-04-29 09:54 | Progress Note ---
Assessment and Plan Assessment and plan: Patient is a 43-year-old man with history of GERD, obesity and mental illness, who presented to [facility] ED on 03/16/2019 with altered mental status. He is visiting from [place] and was brought in by his friend. As per records per family he has been homeless [address]. When he came to the ER, he was unable to speak or follow commands, in the ER he was found to have SVT with heart rate in the 250s. The patient was shocked and medicated. Also was confused, and had trouble protecting his airway; therefore, he was then intubated. He has had a prolonged hospital course. During this hospital course, he was found to have sepsis with septic shock, acute resp failure, rhabdomyolysis, RUBEN, and multisystem organ failure, toxic metabolic encephalopathy. He was started on hemodialysis-still getting dialysis. patient is much improved. Still has recurrent fever, followed by ID Physician. Patient now on Azactam, Zyvox. He passed his swallow test started on mechanical soft diet today 04/21/19. * Initial rhythm appeared to be SVT * Per friend patient complaining of feeling ill and has some left eye discharge, cold, clammy and diaphrietic by the time arrived to the hospital. Also mentions a possibility of a right axilla abscess. The and went to stay with his girlfriend the last 2 days and this morning when he saw the patient he was ill-appearing but sleeping. * Currently on 4 pressors * Start on Elizabeth culture including coverage for possible Meningitis CHEST 1 VIEW . IMPRESSION: 1. Endotracheal tube in good position. 2. Nasogastric tube doubled back on itself at the level of the [place] with the tip not seen. The tube will need to be removed/reposition. CT of the chest, abdomen and pelvis without contrast . IMPRESSION: 1. Parenchymal disease in both lower lobes posteromedially may be related to aspiration pneumonia. 2. Moderately dilated small bowel bowel loops in the mid to upper abdomen anteriorly with mild associated bowel wall thickening. Locali zed enteritis and small bowel ischemia should be considered. CT head/brain wo contrast. IMPRESSION: 1. Some component of diffuse cerebral edema cannot be excluded. However, this finding may be artifactual secondary to patient positioning. Close follow-up is recommended. No definitive signs of herniation or large territorial infarct at this time. 2. Otherwise, no focal mass, hemorrhage, hydrocephalus, or large infarct seen. * Goal of care * Continue aggressive PT/OT * Woundcare * Encourage Incentive spirometer use Acute hypoxic respiratory failure. Was intubated, now extubated. Now on Room air. Continue BiPAP as clinically indicated. Right upper ext DVT: Unfortunately patient with clot adherent ulcer on EGD, Unable to irrigate out. H/H relatively stable and plt improved. Will recommend elevating upper ext. SVT with Polymorphic Vtach/Atrial fibrillation. Continue Metoprolol. Cardiology following. No systemic AC regarding AFib in setting of anemia, thrombocytopenia, GI bleed. Acute blood loss anemia. Patient with GI bleed secondary to peptic ulcer disease. EGD completed per GI. Continue PRBCs as needed. GI bleed/peptic ulcer disease. Continue PPI. Transfuse PRBCs as needed. Sepsis/septic shock. Continue antibiotics per ID. Now on Zyvox and Azactam Right Axillary cellulitis/Suspect Aspiration pneumonia/Acute Cystitis: Antibiotics stopped. Fever, recurrent- Improved ID following Severe Metabolic Acidosis- Resolved Hypercalcemia: Slight improvement. Continue to monitor- give fluids and lasix, recalled Ham Smoker Multi-Organ failure/ Ischemic hepatitis/shock liver. Elevated LFTs improved. Viral hepatitis panel negative Acute Kidney Failure secondary to ATN ANURIC. Patient still on hemodialysis. Patient was started on hemodialysis on 03/18/19 due to worsening metabolic ac idosis and hyperkalemia. Baseline renal function is unknown. CT abdomen was negative for obstructive nephropathy. Avoid nephrotoxic agents. Continue hemodialysis per nephrology. Toxic metabolic encephalopathy. Brain MRI showed no acute intracranial abnormality, mild nonspecific chronic white matter changes, fluid throughout the sinuses and mastoid air cells. Swelling both upper ext L>R Doppler US : no DVT LUE Repeat doppler Continue wound care Patient recieved fluids, will give calcium Left AC wound- Dressing in place, wound care following and proscribing management Hypokalemia. Correted Replete potassium as needed. Hypernatremia. Follow-up BMP, Nephrology following Now resolved Thrombocytopenia, Presume DIC. Etiology likely secondary to sepsis. Resolved. Rhabdomyolysis. CK normalized. Full code status Continue aggressive PT. Pysch input is noted History Interval history: Patient seen and examined, no new complaints, still very lethargic. no further hallucination, noted edema of the left arm and right arm improving. dressing still in place. Discussed with Nursings staff about elevating upper ext. Extensive discussion with patient abut passive range of motion exercise Hospitalist Physical - Physical exam Narrative exam: Constitutional: well-developed. No distress, temporal wasting, lethargic Head: Normocephalic atraumatic Eyes: Pupils are equal round and reactive to light Mouth: Moist mucous membranes. Neck: Supple no thyromegaly. No bruit. No JVD Heart: Irregularly irregular. No rubs murmurs or gallop Lungs: Clear to auscultation bilaterally. no rales or rhonchi Abdomen: Soft, nontender. Bowel sound are present. Extremities: left upper ext edema, dressing in place. no cyanosis, no clubbing. Neuro: Alert oriented Oriented x3. No focal sensory or motor deficit. Skin:Diffuse multple ulcerated lesions- see wound care notes, has been present. but dressing covering. Non draining. Musculoskeletal system: No joint pain Hematological: No petechia or subcutanous hemorrhages. Psychiatry: Euthymic. Calm. - Constitutional Vitals: Temp Pulse Resp BP Pulse Ox 97.7 F 88 17 129/78 94 04/29/19 05:38 04/29/19 09:48 04/29/19 05:38 04/29/19 09:48 04/29/19 05:38 General appearance: Present: obese Results - Labs CBC & Chem 7: 04/27/19 05:05 04/28/19 05:17 Labs: Laboratory Last Values WBC 11.9 K/mm3 (4.5-11.0) H 04/27/19 05:05 RBC 3.01 M/mm3 (3.65-5.03) L 04/27/19 05:05 Hgb 8.6 gm/dl (11.8-15.2) L 04/27/19 05:05 Hct 26.3 % (35.5-45.6) L 04/27/19 05:05 MCV 87 fl (84-94) 04/27/19 05:05 MCH 29 pg (28-32) 04/27/19 05:05 MCHC 33 % (32-34) 04/27/19 05:05 RDW 17.6 % (13.2-15.2) H 04/27/19 05:05 Plt Count 397 K/mm3 (140-440) 04/27/19 05:05 Lymph % (Auto) 11.9 % (13.4-35.0) L 04/27/19 05:05 [place] % (Auto) 5.3 % (0.0-7.3) 04/27/19 05:05 Eos % (Auto) 3.7 % (0.0-4.3) 04/27/19 05:05 Baso % (Auto) 0.8 % (0.0-1.8) 04/27/19 05:05 Lymph # 1.4 K/mm3 (1.2-5.4) 04/27/19 05:05 [place] # 0.6 K/mm3 (0.0-0.8) 04/27/19 05:05 Eos # 0.4 K/mm3 (0.0-0.4) 04/27/19 05:05 Baso # 0.1 K/mm3 (0.0-0.1) 04/27/19 05:05 Add Manual Diff Complete 04/11/19 04:16 Total Counted 100 04/11/19 04:16 Seg Neutrophils % 78.3 % (40.0-70.0) H 04/27/19 05:05 Seg Neuts % (Manual) 71.0 % (40.0-70.0) H 04/11/19 04:16 Band Neutrophils % 1.0 % 04/11/19 04:16 Lymphocytes % (Manual) 17.0 % (13.4-35.0) 04/11/19 04:16 Reactive Lymphs % (Man) 0 % 04/11/19 04:16 Monocytes % (Manual) 8.0 % (0.0-7.3) H 04/11/19 04:16 Eosinophils % (Manual) 2.0 % (0.0-4.3) 04/11/19 04:16 Basophils % (Manual) 1.0 % (0.0-1.8) 04/11/19 04:16 Metamyelocytes % 0 % 04/11/19 04:16 Myelocytes % 0 % 04/11/19 04:16 Promyelocytes % 0 % 04/11/19 04:16 Blast Cells % 0 % 04/11/19 04:16 Nucleated RBC % Not Reportable 04/11/19 04:16 Seg Neutrophils # 9.4 K/mm3 (1.8-7.7) H 04/27/19 05:05 Seg Neutrophils # Man 8.2 K/mm3 (1.8-7.7) H 04/11/19 04:16 Band Neutrophils # 0.1 K/mm3 04/11/19 04:16 Lymphocytes # (Manual) 2.0 K/mm3 (1.2-5.4) 04/11/19 04:16 Abs React Lymphs (Man) 0.0 K/mm3 04/11/19 04:16 Monocytes # (Manual) 0.9 K/mm3 (0.0-0.8) H 04/11/19 04:16 Eosinophils # (Manual) 0.2 K/mm3 (0.0-0.4) 04/11/19 04:16 Basophils # (Manual) 0.1 K/mm3 (0.0-0.1) 04/11/19 04:16 Metamyelocytes # 0.0 K/mm3 04/11/19 04:16 Myelocytes # 0.0 K/mm3 04/11/19 04:16 Promyelocytes # 0.0 K/mm3 04/11/19 04:16 Blast Cells # 0.0 K/mm3 04/11/19 04:16 WBC Morphology Not Reportable 04/11/19 04:16 Hypersegmented Neuts Not Reportable 04/11/19 04:16 Hyposegmented Neuts Not Reportable 04/11/19 04:16 Hypogranular Neuts Not Reportable 04/11/19 04:16 Smudge Cells Not Reportable 04/11/19 04:16 Toxic Granulation Not Reportable 04/11/19 04:16 Toxic Vacuolation Not Reportable 04/11/19 04:16 Dohle Bodies Not Reportable 04/11/19 04:16 Pelger-Huet Anomaly Not Reportable 04/11/19 04:16 Joyce Rods Not Reportable 04/11/19 04:16 Platelet Estimate Consistent w auto 04/11/19 04:16 Clumped Platelets Not Reportable 04/11/19 04:16 Plt Clumps, EDTA Not Reportable 04/11/19 04:16 Large Platelets Not Reportable 04/11/19 04:16 Giant Platelets Not Reportable 04/11/19 04:16 Platelet Satelliting Not Reportable 04/11/19 04:16 Plt Morphology Comment Not Reportable 04/11/19 04:16 RBC Morphology Not Reportable 04/11/19 04:16 Dimorphic RBCs Not Reportable 04/11/19 04:16 Polychromasia Not Reportable 04/11/19 04:16 Hypochromasia Not Reportable 04/11/19 04:16 Poikilocytosis Not Reportable 04/11/19 04:16 Anisocytosis Rare 04/11/19 04:16 Microcytosis Rare 04/11/19 04:16 Macrocytosis Not Reportable 04/11/19 04:16 Spherocytes Not Reportable 04/11/19 04:16 Pappenheimer Bodies Not Reportable 04/11/19 04:16 Sickle Cells Not Reportable 04/11/19 04:16 Target Cells Not Reportable 04/11/19 04:16 Tear Drop Cells Not Reportable 04/11/19 04:16 Ovalocytes Not Reportable 04/11/19 04:16 Stomatocytes Few 03/26/19 Unknown Helmet Cells Not Reportable 04/11/19 04:16 [place] Bodies Not Reportable 04/11/19 04:16 [place] Rings Not Reportable 04/11/19 04:16 Samantha Cells Not Reportable 04/11/19 04:16 Bite Cells Not Reportable 04/11/19 04:16 Crenated Cell Not Reportable 04/11/19 04:16 Elliptocytes Not Reportable 04/11/19 04:16 Acanthocytes (Spur) Not Reportable 04/11/19 04:16 Rouleaux Not Reportable 04/11/19 04:16 Hemoglobin C Crystals Not Reportable 04/11/19 04:16 Schistocytes Not Reportable 04/11/19 04:16 Malaria parasites Not Reportable 04/11/19 04:16 Phil Bodies Not Reportable 04/11/19 04:16 Hem Pathologist Commnt No 04/11/19 04:16 PT 15.3 Sec. (12.2-14.9) H 03/29/19 11:48 INR 1.24 (0.87-1.13) H 03/29/19 11:48 APTT 26.6 Sec. (24.2-36.6) 03/28/19 12:00 Fibrinogen 226 mg/dl (211-480) 03/28/19 12:00 D-Dimer 4845.98 ng/mlDDU (0-234) H 03/28/19 12:00 Heparin Anti-Xa Level 0.23 U.I./ml (0.3-0.7) L 03/28/19 05:13 POC ABG pH 7.401 (7.35-7.45) 04/07/19 12:57 ABG pH 7.388 pH Units (7.350-7.450) 04/06/19 05:20 POC ABG pCO2 41.5 (35-45) 04/07/19 12:57 ABG pCO2 38.5 mm Hg 04/06/19 05:20 POC ABG pO2 107 (80-105) H 04/07/19 12:57 ABG pO2 104.0 mm Hg (80.0-90.0) H 04/06/19 05:20 POC ABG HCO3 25.7 (22-26 mml/L) 04/07/19 12:57 ABG HCO3 22.6 mmol/L (20.0-26.0) 04/06/19 05:20 POC ABG Total CO2 27 (23-27mmol/L) 04/07/19 12:57 POC ABG O2 Sat 98 04/07/19 12:57 ABG O2 Saturation 97.8 % (95.0-99.0) 04/06/19 05:20 ABG O2 Content 10.0 (0.0-44) 04/06/19 05:20 POC ABG Base Excess 1 ((-2) - (+3)mmol/L) 04/07/19 12:57 ABG Base Excess -2.1 mmol/L (-2.0-3.0) L 04/06/19 05:20 ABG Hemoglobin 7.3 gm/dl (14.0-18.0) L 04/06/19 05:20 ABG Carboxyhemoglobin 1.7 % (0.0-5.0) 04/06/19 05:20 ABG Methemoglobin 0.6 % (0.0-1.5) 04/06/19 05:20 Oxyhemoglobin 95.5 % (95.0-99.0) 04/06/19 05:20 FiO2 30 % 04/07/19 12:57 Sodium 139 mmol/L (137-145) 04/28/19 05:17 Potassium 3.6 mmol/L (3.6-5.0) 04/28/19 05:17 Chloride 100.0 mmol/L (98-107) 04/28/19 05:17 Carbon Dioxide 26 mmol/L (22-30) 04/28/19 05:17 Anion Gap 17 mmol/L 04/28/19 05:17 BUN 34 mg/dL (9-20) H 04/28/19 05:17 Creatinine 2.0 mg/dL (0.8-1.5) H 04/28/19 05:17 Estimated GFR 36 ml/min 04/28/19 05:17 BUN/Creatinine Ratio 17 % 04/28/19 05:17 Glucose 78 mg/dL (75-100) 04/28/19 05:17 POC Glucose 80 (70-105) 04/29/19 06:45 Lactic Acid 1.90 mmol/L (0.7-2.0) 03/21/19 21:31 Calcium 12.1 mg/dL (8.4-10.2) H* 04/28/19 05:17 Ionized Calcium 3.7 mg/dL (4.8-5.6) L 03/30/19 12:09 Phosphorus 5.90 mg/dL (2.5-4.5) H 04/26/19 05:57 Magnesium 1.90 mg/dL (1.7-2.3) 04/26/19 05:57 Iron 26 ug/dL (49-181) L 04/02/19 05:03 TIBC 138 mcg/dL (250-450) L 04/02/19 05:03 Ferritin 607.0 ng/mL (13.0-400.0) H 04/02/19 05:03 Total Bilirubin 0.40 mg/dL (0.1-1.2) 04/27/19 05:05 Direct Bilirubin 0.4 mg/dL (0-0.2) H 03/31/19 08:20 Indirect Bilirubin 0.1 mg/dL 03/31/19 08:20 AST 14 units/L (5-40) 04/27/19 05:05 ALT 14 units/L (7-56) 04/27/19 05:05 Alkaline Phosphatase 53 units/L (35-129) 04/27/19 05:05 Total Creatine Kinase 62 units/L (55-170) 04/07/19 05:40 CK-MB (CK-2) 54.3 ng/mL (0.0-4.0) H 03/17/19 07:16 CK-MB (CK-2) Rel Index 0.0 (0-4) 03/17/19 07:16 Troponin T 0.058 ng/mL (0.00-0.029) H 03/17/19 07:16 C-Reactive Protein 7.10 mg/dL (0.00-1.30) H 04/17/19 04:15 Serum Total Protein 5.7 g/dL (6.1-8.1) L 04/21/19 04:22 Total Protein 6.2 g/dL (6.3-8.2) L 04/27/19 05:05 Albumin 2.8 g/dL (3.9-5) L 04/27/19 05:05 Albumin/Globulin Ratio 0.8 % 04/27/19 05:05 Vzjlc-7-Khybxsliz 0.5 g/dL (0.2-0.3) H 04/21/19 04:22 Vkusk-5-Jtvryynug 1.0 g/dL (0.5-0.9) H 04/21/19 04:22 Beta Globulins 0.4 g/dL (0.2-0.5) 04/21/19 04:22 Gamma Globulins 1.1 g/dL (0.8-1.7) 04/21/19 04:22 Abnorm Protein Band 1 see below 04/21/19 04:22 PEP Interpretation see below H 04/21/19 04:22 Triglycerides 309 mg/dL (2-149) H 03/29/19 06:22 Cholesterol 88 mg/dL (50-199) 03/16/19 22:32 LDL Cholesterol Direct 10 mg/dL (50-130) L 03/16/19 22:32 HDL Cholesterol 7 mg/dL (40-59) L 03/16/19 22:32 Cholesterol/HDL Ratio 12.57 % 03/16/19 22:32 Vitamin B12 903.0 pg/mL (211-911) 04/02/19 05:03 Folate 8.05 ng/mL (7.3-26.0) 04/02/19 05:03 Procalcitonin 25.42 ng/mL (<0.15) 03/27/19 19:21 TSH 2.200 mlU/mL (0.270-4.200) 03/16/19 17:05 Free T4 0.72 ng/dL (0.76-1.46) L 03/16/19 17:05 PTH Intact 329.9 pg/mL (15-65) H 03/25/19 05:00 Urine Color Yellow (Yellow) 04/15/19 22:11 Urine Turbidity Clear (Clear) 04/15/19 22:11 Urine pH 6.0 (5.0-7.0) 04/15/19 22:11 Ur Specific [place] 1.010 (1.003-1.030) 04/15/19 22:11 Urine Protein 30 mg/dl mg/dL (Negative) 04/15/19 22:11 Urine Glucose (UA) Neg mg/dL (Negative) 04/15/19 22:11 Urine Ketones Neg mg/dL (Negative) 04/15/19 22:11 Urine Blood Mod (Negative) 04/15/19 22:11 Urine Nitrite Neg (Negative) 04/15/19 22:11 Urine Bilirubin Neg (Negative) 04/15/19 22:11 Urine Urobilinogen < 2.0 mg/dL (<2.0) 04/15/19 22:11 Ur Leukocyte Esterase Neg (Negative) 04/15/19 22:11 Urine WBC (Auto) 4.0 /HPF (0.0-6.0) 04/15/19 22:11 Urine RBC (Auto) 2.0 /HPF (0.0-6.0) 04/15/19 22:11 U Epithel Cells (Auto) < 1.0 /HPF (0-13.0) 04/15/19 22:11 Amorphous Crystals 1+ 04/05/19 16:50 Urine Mucus Few /HPF 03/17/19 16:05 Urine Sperm 2+ /HPF (CALCINER OPERATOR HELPER) 03/17/19 16:05 Urine Eosinophils None seen (None Seen) 03/17/19 16:05 Urine Creatinine 106.6 mg/dL (0.1-20.0) H 03/17/19 16:05 Urine Sodium 95 mmol/L 03/17/19 16:05 Vancomycin Trough 11.5 ug/mL (5.0-20.0) 03/18/19 13:19 Random Vancomycin 10.8 ug/mL (0-40.0) 04/14/19 03:55 Salicylates < 0.3 mg/dL (2.8-20.0) L 03/16/19 17:05 Urine Opiates Screen Presumptive negative 03/17/19 16:05 Urine Methadone Screen Presumptive negative 03/17/19 16:05 Acetaminophen < 5.0 ug/mL (10.0-30.0) L 03/16/19 17:05 Ur Barbiturates Screen Presumptive negative 03/17/19 16:05 Ur Phencyclidine Scrn Presumptive negative 03/17/19 16:05 Ur Amphetamines Screen Presumptive negative 03/17/19 16:05 U Benzodiazepines Scrn Presumptive positive 03/17/19 16:05 Urine Cocaine Screen Presumptive negative 03/17/19 16:05 U Marijuana (THC) Screen Presumptive negative 03/17/19 16:05 Drugs of Abuse Note Disclamer 03/17/19 16:05 Plasma/Serum Alcohol < 0.01 % (0-0.07) 03/16/19 17:05 LANDY Screen Negative (Negative) 04/17/19 04:15 Proteinase 3 (PR3) Ab <1.0 AI (<1.0) 04/21/19 04:22 Myeloperoxidase Ab <1.0 AI (<1.0) 04/21/19 04:22 Complement C3 150 mg/dL (82-185) 04/17/19 04:15 Complement C4 37 mg/dL (15-53) 04/17/19 04:15 Hepatitis A IgM Ab Non-reactive (NonReactive) 04/18/19 10:02 Hep Bs Antigen Non-reactive (Negative) 04/18/19 10:02 Hep B Core IgM Ab Non-reactive (NonReactive) 04/18/19 10:02 Hepatitis C Antibody Non-reactive (NonReactive) 04/18/19 10:02 HIV 1&2 Antibody Rapid Non react (Non React) 03/17/19 11:52 HIV P24 Antigen Non react (Non React) 03/17/19 11:52 Influenza A (Rapid) Negative (Negative) 03/17/19 17:00 Influenza B (Rapid) Negative (Negative) 03/17/19 17:00 Group A Strep Rapid Negative (Negative) 03/17/19 17:00 Miscellaneous Test Flexitest 1 03/21/19 12:00 Blood Type A POSITIVE 04/02/19 16:34 Antibody Screen Negative 04/02/19 16:34 Crossmatch See Detail 04/02/19 16:34 Active Medications - Current Medications Current Medications: Generic Name Dose Route Start Last Admin Trade Name Freq PRN Reason Stop Dose Admin Acetaminophen 650 mg 04/02/19 23:26 04/29/19 09:47 Tylenol PO 650 mg Q4H PRN Administration Pain, Mild (1-3),temp>100.5 Albuterol 2.5 mg 03/29/19 13:08 Proventil IH Q4HRT PRN Shortness Of Breath Amiodarone HCl 200 mg 04/15/19 22:00 04/29/19 09:48 Cordarone PO 200 mg BID PAOLO Administration Lipase/Protease/Amylase 1 each 04/20/19 13:17 Pancreaze 10,500 Unit FEEDTUBE PRN PRN For Clogged Feeding Tube Bacitracin 1 applic 04/17/19 08:00 Antibiotic Oint TP Q4H PRN upper lip sore/open Calcitonin [place] 50 unit 04/27/19 10:00 04/29/19 09:48 Miacalcin SUB-Q 50 unit Q12HR PAOLO Administration Dextrose 50 gm 04/17/19 08:00 D50w (25gm) Vial IV Q1H PRN Hypoglycemia Hydralazine HCl 20 mg 04/14/19 03:00 04/14/19 03:11 Apresoline IV 20 mg Q4H PRN Administration hypertemsion Hydrophilic Ointment 1 applic 03/16/19 15:50 04/19/19 18:24 Vaseline Lip Therapy TP 1 applic Q2HR PRN Administration Dry Lips Sodium Chloride 100 mls @ 999 mls/hr 04/20/19 08:41 Nacl 0.9% IV NEYMAR PRN Hypotension Lansoprazole 30 mg 04/11/19 10:00 04/29/19 09:48 Prevacid Solutab FEEDTUBE 30 mg BID PAOLO Administration Melatonin 5 mg 04/26/19 21:00 04/26/19 23:07 Melatonin PO 5 mg QHS PRN Administration Sleep Metoprolol Tartrate 5 mg 04/16/19 22:24 04/22/19 00:20 Lopressor IV 5 mg Q6H PRN Administration For HR >120 Metoprolol Tartrate 25 mg 04/17/19 20:00 04/29/19 09:48 Lopressor PO 25 mg TID PAOLO Administration Multi-Ingred Cream/Lotion/Oil/Oint 1 applic 03/16/19 15:50 03/19/19 20:10 Artificial Tears Ophth Oint OU 1 applic Q4HR PRN Administration Dry Eye(s) Simple Syrup 15 ml 04/20/19 13:17 Simple Syrup FEEDTUBE PRN PRN Hypoglycemia Simple Syrup 30 ml 04/20/19 13:29 Simple Syrup FEEDTUBE PRN PRN Hypoglycemia Sodium Bicarbonate 325 mg 04/20/19 13:17 04/27/19 11:03 Sodium Bicarbonate FEEDTUBE 325 mg PRN PRN Administration For Clogged Feeding Tube Sodium Hypochlorite 1 applic 04/18/19 11:00 04/28/19 22:22 Dakin's Half Strength TP 1 applicatio BID PAOLO Administration Nutrition/Malnutrition Assess - Dietary Evaluation Nutrition/Malnutrition Findings: Nutrition Notes Start: 03/17/19 14:22 Freq: Status: Active Protocol: Document 04/27/19 12:05 MANOJ (Rec: 04/27/19 12:13 DW [id number]) Co-Sign 04/27/19 12:05 LP Nutrition Notes Initial or Follow up Reassessment Current Diagnosis Acute Kidney Injury,Heart Failure Other Pertinent Diagnosis on HD, Septic shock,Multiple organ failure, encephalopathy, Aspiration pneu Current Diet Mechanical Soft Diet Labs/Tests Na: 136 K: 3.2 BUN: 40 Cr: 2.5 Ca: 12.3 Pertinent Medications Reviewed Height 6 ft Weight 146.8 kg [place] Body Weight (kg) 80.90 BMI 43.9 Subjective/Other Information F/U intakes Pt stated his appetite is fine but has only been eating 25% of his meals because he does not like the taste of food. Pt stated he would like to have another drink besides water. Applied Computer Science Professor offered lemonade and pt agreed. Percent of energy/protein needs met: 25%/21% Burn Absent Trauma Absent Minimum of two criteria No #1 Nutrition Diagnosis Inadequate oral intake As Evidenced by Signs and Symptoms PT diet advanced and pt consuimng 25% of kcal/PRO needs Diagnosis Progress(for reassessment Improved documentation) Is patient on ventilator? No Is Patient Ambulatory and/or Out of Bed No [facility]EE[facility] 2871.756 Kcal/Kg value to use for calculation 14 Approximate Energy Requirements Using 2054 kcal/Kg Calculation Used for Recommendations Kcal/kg Additional Notes Protein: 116-145g (1.2-1.5g/kg , AjdBW 97 kg) Fluids:1 ml/kcal or per MD Nutrition Intervention Change Diet Order: Continue Current Diet Nutrition Support: d/c Goal #1 Meet least 75% of kcal/PRO needs via PO Anticipated Discharge Needs: Unable to determine at this time Follow-Up By: 04/30/19 Additional Comments F/U PO intake
--- NOTE | 2019-04-29 10:33 | Progress Note ---
Assessment and Plan 1. Acute kidney injury: Vasomotor RUBEN in the setting of shock / volume depletion / Rhabdo. Baseline renal function is unknown. CT abdomen was negative for obstructive nephropathy. Patient was started on hemodialysis on 03/18/19 due to worsening metabolic acidosis and hyperkalemia. Hemodialysis: 03/18, 03/19, 03/20, 03/22, 03/23, 03/24, 03/26, 03/28, 03/29, 03/31, 04/02, 04/04, 04/06, 04/09, 04/11, 04/13, 04/18, 04/20. Monitor for [employer] HOUSE[employer] needs. Renal function continue to improve. Monitor renal function. Renal prognosis is guarded. Avoid nephrotoxic agents. Meds dosage based on GFR. No labs from today. 2. FEN: Hypercalcemia, multifactorial etiology. Patient previously received high dose Vitamin D and activated Vit.D for hypocalcemia. Contributing factor includes immobilization. S/p Pamidronate on 04/26. Ionized Calcium, PTH and Vit.D level ordered. Start on IV fluids to treat any component of volume depletion. Monitor lytes. 3. Septic shock: Currently off pressors. Recurrent fever. Per ID recommendation the dialysis catheter was removed on 04/20. 4. Rhabdomyolysis: Improved. 5. A.fib with RVR: On Amiodarone and Metoprolol. 6. Respiratory failure: Extubated. 7. Severe anemia: S/p PRBC and Epogen. 8. Elevated transaminases: Improved. 9. Encephalopathy: Improving. Examination: General appearance: well-developed, appears stated age, obese, not in distress HEENT: Atraumatic EYES: Pupils reacting to light Neck: supple Respiratory: faint rales noted Cardiology: regular, S1S2 heard, no murmur Gastrointestinal: obese, BS heard, not tender Integumentary: no rash noted Neurologic: alert, follows command, conversing, oriented Ext: L UE edema noted Skin: L elbow area wound Hemodialysis access: None Subjective Date of service: 04/29/19 Principal diagnosis: hypercalcemia - anemia Interval history: Patient was seen and examined at the bedside. Doing ok. Objective - Vital Signs Vital signs: Vital Signs - 12hr 04/29/19 04/29/19 04/29/19 00:04 05:38 09:48 Temperature 97.6 F 97.7 F Pulse Rate 74 88 88 Respiratory 16 17 Rate Blood Pressure 127/71 129/76 129/78 O2 Sat by Pulse 94 94 Oximetry - Lab 04/27/19 05:05 04/28/19 05:17 Most recent lab results ABG pH 7.388 pH Units (7.350-7.450) 04/06/19 05:20 ABG pCO2 38.5 mm Hg 04/06/19 05:20 ABG pO2 104.0 mm Hg (80.0-90.0) H 04/06/19 05:20 ABG HCO3 22.6 mmol/L (20.0-26.0) 04/06/19 05:20 ABG O2 Saturation 97.8 % (95.0-99.0) 04/06/19 05:20 Calcium 12.1 mg/dL (8.4-10.2) H* 04/28/19 05:17 Phosphorus 5.90 mg/dL (2.5-4.5) H 04/26/19 05:57 Magnesium 1.90 mg/dL (1.7-2.3) 04/26/19 05:57 Urine Creatinine 106.6 mg/dL (0.1-20.0) H 03/17/19 16:05 Urine Sodium 95 mmol/L 03/17/19 16:05 Medications & Allergies - Medications Allergies/Adverse Reactions: Allergies No Known Allergies Allergy (Unverified 03/16/19 17:17) Home Medications: Home Medications Medication Instructions Recorded Confirmed Last Taken Type No Known Home Medications [No 04/28/19 04/28/19 Unknown History Reported Home Medications] Active Medications: Generic Name Dose Route Start Last Admin Trade Name Vicenta PRN Reason Stop Dose Admin Acetaminophen 650 mg 04/02/19 23:26 04/29/19 09:47 Tylenol PO 650 mg Q4H PRN Administration Pain, Mild (1-3),temp>100.5 Albuterol 2.5 mg 03/29/19 13:08 Proventil IH Q4HRT PRN Shortness Of Breath Amiodarone HCl 200 mg 04/15/19 22:00 04/29/19 09:48 Cordarone PO 200 mg BID PAOLO Administration Lipase/Protease/Amylase 1 each 04/20/19 13:[address] 10,500 Unit FEEDTUBE PRN PRN For Clogged Feeding Tube Bacitracin 1 applic 04/17/19 08:00 Antibiotic Oint TP Q4H PRN upper lip sore/open Calcitonin [place] 50 unit 04/27/19 10:00 04/29/19 09:48 Miacalcin SUB-Q 50 unit Q12HR PAOLO Administration Dextrose 50 gm 04/17/19 08:00 D50w (25gm) Vial IV Q1H PRN Hypoglycemia Hydralazine HCl 20 mg 04/14/19 03:00 04/14/19 03:11 Apresoline IV 20 mg Q4H PRN Administration hypertemsion Hydrophilic Ointment 1 applic 03/16/19 15:50 04/19/19 18:24 Vaseline Lip Therapy TP 1 applic Q2HR PRN Administration Dry Lips Sodium Chloride 100 mls @ 999 mls/hr 04/20/19 08:41 Nacl 0.9% IV NEYMAR PRN Hypotension Lansoprazole 30 mg 04/11/19 10:00 04/29/19 09:48 Prevacid Solutab FEEDTUBE 30 mg BID PAOLO Administration Melatonin 5 mg 04/26/19 21:00 04/26/19 23:07 Melatonin PO 5 mg QHS PRN Administration Sleep Metoprolol Tartrate 5 mg 04/16/19 22:24 04/22/19 00:20 Lopressor IV 5 mg Q6H PRN Administration For HR >120 Metoprolol Tartrate 25 mg 04/17/19 20:00 04/29/19 09:48 Lopressor PO 25 mg TID PAOLO Administration Multi-Ingred Cream/Lotion/Oil/Oint 1 applic 03/16/19 15:50 03/19/19 20:10 Artificial Tears Ophth Oint OU 1 applic Q4HR PRN Administration Dry Eye(s) Simple Syrup 15 ml 04/20/19 13:17 Simple Syrup FEEDTUBE PRN PRN Hypoglycemia Simple Syrup 30 ml 04/20/19 13:29 Simple Syrup FEEDTUBE PRN PRN Hypoglycemia Sodium Bicarbonate 325 mg 04/20/19 13:17 04/27/19 11:03 Sodium Bicarbonate FEEDTUBE 325 mg PRN PRN Administration For Clogged Feeding Tube Sodium Hypochlorite 1 applic 04/18/19 11:00 04/28/19 22:22 Dakin's Half Strength TP 1 applicatio BID PAOLO Administration
[2019-04-29] MEDS ORDERED: CALCITONIN,SALMON,SYNTHETIC 400 UNIT/2 ML INJ MDV SUB-Q SCH (11:30)
[2019-04-29] MEDS ORDERED: SODIUM CHLORIDE 0.9% 1000 ML 1,000 ML IV SCH (12:00)
[2019-04-29] MEDS: SODIUM HYPOCHLORITE, DAKIN'S 1/2 STRENGTH (0.25%) 473 ML TOPICAL SOLN TP SCH ×2 (14:00→21:26)
[2019-04-29 14:51] LABS: Calcium 11.5 mg/dL (8.4-10.2)
--- NOTE | 2019-04-29 19:42 | XRay Report ---
CHEST 1 VIEW, 04/29/2019 7:17 PM CLINICAL INFORMATION/INDICATION: Shortness of breath COMPARISON: Chest radiograph, 04/15/2019 FINDINGS: SUPPORT DEVICES: None. HEART: The cardiac silhouette is upper limits of normal in size. LUNGS/PLEURA: Faint bilateral interstitial opacities have decreased since the previous study. There i s no focal airspace consolidation or large pleural effusion. ADDITIONAL FINDINGS: No additional acute findings. IMPRESSION: 1. Faint bilateral interstitial opacities suggest venous hypertension without evidence of overt pulmo nary edema. Signer Name: Romina Rodriguez MD Signed: 04/29/2019 7:38 PM Workstation Name: [id number]
[2019-04-30] MEDS: CALCITONIN,SALMON,SYNTHETIC 400 UNIT/2 ML INJ MDV SUB-Q SCH ×3 (03:54→23:21)
--- NOTE | 2019-04-30 06:48 | Hem/Onc Progress Note ---
Assessment and Plan 1. h/o Anemia. The patient has history of bleeding. 2. rt Internal jugular partial thrombosis. The patient was started on heparin. This has been held due to bleeding 3. Gastrointestinal bleed. 4. h/o Elevated creatinine kinase. 5. h/o Low calcium. 6. h/o Thrombocytopenia. 7. h/o Renal failure. 8. h/o Intubation. 9. s/p Transfusion support. 10. Leukocytosis. At this time, supportive care may help the patient. The patient's platelet was low at admission. Urine toxicology was negative. awake h/o rt IJ dvt - off anticoagulation - due to bleeding platelet - > 100 s/p iv iron trial pt was on BIPAP - then o2 support h/o tachycardia - on meds - RT IJ line remvoed moving arms>legs left arm swelling -dvt study negative for left arm rt IJ dvt is better d/w pt reg DVT - bleed - anemia psych consulted placement being looked into 04/30 hypercalcemia - likely sec to immobilization pt got pamidronate and hydration his calcium was low at admission calcitonin calcium still high - pt was on HD till recent past - Patient Problems (1) DVT (deep venous thrombosis) Current Visit: Yes Status: Acute Subjective Date of service: 04/30/19 Principal diagnosis: anemia - DVT rt IJ Interval history: on o2 - minimal movements of leg Objective - Exam Narrative Exam: Pain - none now General appearance - awake Performance status limited self care Eyes - no icterus ENT - on o2 LNs cervical not palpable Neck - no LN Respiratory Normal Breath sounds - CTA anteriorly CVS S1 S2 + Extremities edema + better General GI Soft Rectal deferred male - deferred Skin warm Musculoskeletal moves arms>legs Neurologically awake - Constitutional Vitals: Last Vital Signs Temp 97.8 F 04/30/19 05:05 Pulse 92 H 04/30/19 05:05 Resp 20 04/30/19 05:05 BP 129/70 04/30/19 05:05 Pulse Ox 94 04/30/19 05:05 - Labs Lab Results: Laboratory Results - last 24 hr 04/29/19 04/29/19 04/29/19 11:36 14:14 14:14 Sodium 138 Potassium 3.4 L Chloride 100.2 Carbon Dioxide 24 Anion Gap 17 BUN 33 H Creatinine 1.9 H Estimated GFR 39 BUN/Creatinine Ratio 17 Glucose 107 H POC Glucose 94 Calcium 11.5 H PTH Intact 8.83 L 04/29/19 04/30/19 04/30/19 17:27 00:01 06:41 Sodium Potassium Chloride Carbon Dioxide Anion Gap BUN Creatinine Estimated GFR BUN/Creatinine Ratio Glucose POC Glucose 81 86 78 Calcium PTH Intact Medications & Allergies - Medications Allergies/Adverse Reactions: Allergies No Known Allergies Allergy (Unverified 03/16/19 17:17) Home Medications: Home Medications Medication Instructions Recorded Confirmed Last Taken Type No Known Home Medications [No 04/28/19 04/28/19 Unknown History Reported Home Medications] Active Medications: Generic Name Dose Route Start Last Admin Trade Name Freq PRN Reason Stop Dose Admin Acetaminophen 650 mg 04/02/19 23:26 04/29/19 18:50 Tylenol PO 650 mg Q4H PRN Administration Pain, Mild (1-3),temp>100.5 Albuterol 2.5 mg 03/29/19 13:08 Proventil IH Q4HRT PRN Shortness Of Breath Amiodarone HCl 200 mg 04/15/19 22:00 04/29/19 21:27 Cordarone PO 200 mg BID PAOLO Administration Lipase/Protease/Amylase 1 each 04/20/19 13:[address] 10,500 Unit FEEDTUBE PRN PRN For Clogged Feeding Tube Bacitracin 1 applic 04/17/19 08:00 Antibiotic Oint TP Q4H PRN upper lip sore/open Calcitonin [place] 600 unit 04/29/19 11:30 04/30/19 03:54 Miacalcin SUB-Q 04/30/19 23:31 600 unit Q12H PAOLO Administration Dextrose 50 gm 04/17/19 08:00 D50w (25gm) Vial IV Q1H PRN Hypoglycemia Hydralazine HCl 20 mg 04/14/19 03:00 04/14/19 03:11 Apresoline IV 20 mg Q4H PRN Administration hypertemsion Hydrophilic Ointment 1 applic 03/16/19 15:50 04/19/19 18:24 Vaseline Lip Therapy TP 1 applic Q2HR PRN Administration Dry Lips Sodium Chloride 100 mls @ 999 mls/hr 04/20/19 08:41 Nacl 0.9% IV NEYMAR PRN Hypotension Sodium Chloride 1,000 mls @ 75 mls/hr 04/29/19 12:00 Nacl 0.9% 1000 Ml IV DIRECT PAOLO Lansoprazole 30 mg 04/11/19 10:00 04/29/19 21:26 Prevacid Solutab FEEDTUBE 30 mg BID PAOLO Administration Melatonin 5 mg 04/26/19 21:00 04/26/19 23:07 Melatonin PO 5 mg QHS PRN Administration Sleep Metoprolol Tartrate 5 mg 04/16/19 22:24 04/22/19 00:20 Lopressor IV 5 mg Q6H PRN Administration For HR >120 Metoprolol Tartrate 25 mg 04/17/19 20:00 04/29/19 21:26 Lopressor PO 25 mg TID PAOLO Administration Multi-Ingred Cream/Lotion/Oil/Oint 1 applic 03/16/19 15:50 03/19/19 20:10 Artificial Tears Ophth Oint OU 1 applic Q4HR PRN Administration Dry Eye(s) Simple Syrup 15 ml 04/20/19 13:17 Simple Syrup FEEDTUBE PRN PRN Hypoglycemia Simple Syrup 30 ml 04/20/19 13:29 Simple Syrup FEEDTUBE PRN PRN Hypoglycemia Sodium Bicarbonate 325 mg 04/20/19 13:17 04/27/19 11:03 Sodium Bicarbonate FEEDTUBE 325 mg PRN PRN Administration For Clogged Feeding Tube Sodium Hypochlorite 1 applic 04/18/19 11:00 04/29/19 21:26 Dakin's Half Strength TP 1 applicatio BID PAOLO Administration
[2019-04-30 08:20] LABS: Calcium 10.8 mg/dL (8.4-10.2)
[2019-04-30] MEDS ORDERED: POTASSIUM CHLORIDE ER 20 MEQ TAB PO ONE (09:00)
--- NOTE | 2019-04-30 09:26 | Progress Note ---
Assessment and Plan 1. Acute kidney injury: Vasomotor RUBEN in the setting of shock / volume depletion / Rhabdo. Baseline renal function is unknown. CT abdomen was negative for obstructive nephropathy. Patient was started on hemodialysis on 03/18/19 due to worsening metabolic acidosis and hyperkalemia. Hemodialysis: 03/18, 03/19, 03/20, 03/22, 03/23, 03/24, 03/26, 03/28, 03/29, 03/31, 04/02, 04/04, 04/06, 04/09, 04/11, 04/13, 04/18, 04/20. Monitor for [employer] PUBL[employer] needs. Renal function continue to improve. Monitor renal function. Renal prognosis is guarded. Avoid nephrotoxic agents. Meds dosage based on GFR. 2. FEN: Hypercalcemia, multifactorial etiology. Contributing factor includes immobilization. Patient previously received high dose Vitamin D and activated Vit.D for hypocalcemia. PTH level low. Ionized Calcium and Vit.D level pending. S/p Pamidronate on 04/26. Currently he is also on Calcitonin. Replete K. Monitor lytes. 3. Septic shock: Currently off pressors. Recurrent fever. Per ID recommendation the dialysis catheter was removed on 04/20. 4. Rhabdomyolysis: Improved. 5. A.fib with RVR: On Amiodarone and Metoprolol. 6. Respiratory failure: Extubated. 7. Severe anemia: S/p PRBC and Epogen. 8. Elevated transaminases: Improved. 9. Encephalopathy: Improving. Examination: General appearance: well-developed, appears stated age, obese, not in distress HEENT: Atraumatic EYES: Pupils reacting to light Neck: supple Respiratory: faint rales noted Cardiology: regular, S1S2 heard, no murmur Gastrointestinal: obese, BS heard, not tender Integumentary: no rash noted Neurologic: alert, follows command, conversing, oriented Ext: L UE edema noted Skin: L elbow area wound Hemodialysis access: None Subjective Date of service: 04/30/19 Principal diagnosis: anemia - DVT rt IJ Interval history: Patient was seen and examined at the bedside. Doing ok. Objective - Vital Signs Vital signs: Vital Signs - 12hr 04/29/19 04/30/19 23:36 05:05 Temperature 98.1 F 97.8 F Pulse Rate 95 H 92 H Respiratory 19 20 Rate Blood Pressure 136/76 129/70 O2 Sat by Pulse 95 94 Oximetry - Lab 04/27/19 05:05 04/30/19 06:47 Most recent lab results ABG pH 7.388 pH Units (7.350-7.450) 04/06/19 05:20 ABG pCO2 38.5 mm Hg 04/06/19 05:20 ABG pO2 104.0 mm Hg (80.0-90.0) H 04/06/19 05:20 ABG HCO3 22.6 mmol/L (20.0-26.0) 04/06/19 05:20 ABG O2 Saturation 97.8 % (95.0-99.0) 04/06/19 05:20 Calcium 10.8 mg/dL (8.4-10.2) H 04/30/19 06:47 Phosphorus 5.90 mg/dL (2.5-4.5) H 04/26/19 05:57 Magnesium 1.90 mg/dL (1.7-2.3) 04/26/19 05:57 Urine Creatinine 106.6 mg/dL (0.1-20.0) H 03/17/19 16:05 Urine Sodium 95 mmol/L 03/17/19 16:05 Medications & Allergies - Medications Allergies/Adverse Reactions: Allergies No Known Allergies Allergy (Unverified 03/16/19 17:17) Home Medications: Home Medications Medication Instructions Recorded Confirmed Last Taken Type No Known Home Medications [No 04/28/19 04/28/19 Unknown History Reported Home Medications] Active Medications: Generic Name Dose Route Start Last Admin Trade Name Freq PRN Reason Stop Dose Admin Acetaminophen 650 mg 04/02/19 23:26 04/29/19 18:50 Tylenol PO 650 mg Q4H PRN Administration Pain, Mild (1-3),temp>100.5 Albuterol 2.5 mg 03/29/19 13:08 Proventil IH Q4HRT PRN Shortness Of Breath Amiodarone HCl 200 mg 04/15/19 22:00 04/29/19 21:27 Cordarone PO 200 mg BID PAOLO Administration Lipase/Protease/Amylase 1 each 04/20/19 13:[address] 10,500 Unit FEEDTUBE PRN PRN For Clogged Feeding Tube Bacitracin 1 applic 04/17/19 08:00 Antibiotic Oint TP Q4H PRN upper lip sore/open Calcitonin [place] 600 unit 04/29/19 11:30 04/30/19 03:54 Miacalcin SUB-Q 04/30/19 23:31 600 unit Q12H PAOLO Administration Dextrose 50 gm 04/17/19 08:00 D50w (25gm) Vial IV Q1H PRN Hypoglycemia Hydralazine HCl 20 mg 04/14/19 03:00 04/14/19 03:11 Apresoline IV 20 mg Q4H PRN Administration hypertemsion Hydrophilic Ointment 1 applic 03/16/19 15:50 04/19/19 18:24 Vaseline Lip Therapy TP 1 applic Q2HR PRN Administration Dry Lips Sodium Chloride 100 mls @ 999 mls/hr 04/20/19 08:41 Nacl 0.9% IV NEYMAR PRN Hypotension Sodium Chloride 1,000 mls @ 75 mls/hr 04/29/19 12:00 Nacl 0.9% 1000 Ml IV DIRECT PAOLO Lansoprazole 30 mg 04/11/19 10:00 04/29/19 21:26 Prevacid Solutab FEEDTUBE 30 mg BID PAOLO Administration Melatonin 5 mg 04/26/19 21:00 04/26/19 23:07 Melatonin PO 5 mg QHS PRN Administration Sleep Metoprolol Tartrate 5 mg 04/16/19 22:24 04/22/19 00:20 Lopressor IV 5 mg Q6H PRN Administration For HR >120 Metoprolol Tartrate 25 mg 04/17/19 20:00 04/29/19 21:26 Lopressor PO 25 mg TID PAOLO Administration Multi-Ingred Cream/Lotion/Oil/Oint 1 applic 03/16/19 15:50 03/19/19 20:10 Artificial Tears Ophth Oint OU 1 applic Q4HR PRN Administration Dry Eye(s) Simple Syrup 15 ml 04/20/19 13:17 Simple Syrup FEEDTUBE PRN PRN Hypoglycemia Simple Syrup 30 ml 04/20/19 13:29 Simple Syrup FEEDTUBE PRN PRN Hypoglycemia Sodium Bicarbonate 325 mg 04/20/19 13:17 04/27/19 11:03 Sodium Bicarbonate FEEDTUBE 325 mg PRN PRN Administration For Clogged Feeding Tube Sodium Hypochlorite 1 applic 04/18/19 11:00 04/29/19 21:26 Dakin's Half Strength TP 1 applicatio BID PAOLO Administration
[2019-04-30] MEDS ORDERED: POTASSIUM CHLORIDE ER 20 MEQ TAB PO NR (10:48)
[2019-04-30] MEDS: ACETAMINOPHEN 325 MG TAB PO PRN (11:16)
[2019-04-30] MEDS: LANSOPRAZOLE 30 MG SOLUTAB FEEDTUBE SCH ×2 (11:16→22:23)
[2019-04-30] MEDS: METOPROLOL TARTRATE 25 MG TAB PO SCH ×3 (11:18→20:04)
[2019-04-30] MEDS: SODIUM HYPOCHLORITE, DAKIN'S 1/2 STRENGTH (0.25%) 473 ML TOPICAL SOLN TP SCH ×2 (14:00→22:23)
--- NOTE | 2019-04-30 14:18 | Progress Note ---
Assessment and Plan Patient moved to the medical floor. Patient awake and more oriented. Patient Presently is 2 litres o2. O2 saturation is 96%. No acute respiratory distress. Patient afebrile and has mild leukocytosis. Patients heart rate and blood pressure running good. Patients calcium still high, 10.8. Patient receiving normal saline. - Patient Problems (1) Acute respiratory failure Current Visit: Yes Status: Acute Qualifiers: Respiratory failure complication: hypoxia Qualified Code(s): J96.01 - Acute respiratory failure with hypoxia Plan to address problem: O2 2L as needed for shortness of breath or desaturation. Albuterol/atrovent aerosol treatments q 6 hours. Continue Prevacid. Recommend DVT prophylaxis. SCDs (2) Altered mental status Current Visit: Yes Status: Acute Qualifiers: Altered mental status type: unspecified Qualified Code(s): R41.82 - Altered mental status, unspecified Plan to address problem: Management as per primary care and neurology. (3) Atrial fibrillation with RVR Current Visit: Yes Status: Acute Plan to address problem: Management as per cardiology. (4) Cardiopulmonary arrest Current Visit: Yes Status: Acute Plan to address problem: Patient resuscitated. Presently resting on 2 litres o2. (5) Acute renal failure Current Visit: Yes Status: Acute Qualifiers: Acute renal failure type: with acute tubular necrosis Qualified Code(s): N17.0 - Acute kidney failure with tubular necrosis Plan to address problem: Management as per nephrology. (6) Aspiration pneumonia Current Visit: Yes Status: Acute Qualifiers: Aspiration pneumonia type: unspecified Plan to address problem: Patient treated with Azactam and zyvox. (7) GI bleed Current Visit: Yes Status: Acute Plan to address problem: Management as per gastroenterology. Subjective Date of service: 04/30/19 Principal diagnosis: anemia - DVT rt IJ Interval history: Patient moved to the medical floor. Patient awake and more oriented. Patient Presently is 2 litres o2. O2 saturation is 96%. No acute respiratory distress. Patient afebrile and has mild leukocytosis. Patients heart rate and blood pressure running good. Patients calcium still high, 10.8. Patient receiving normal saline. Objective Vital Signs - 12hr 04/30/19 05:05 Temperature 97.8 F Pulse Rate 92 H Respiratory 20 Rate Blood Pressure 129/70 O2 Sat by Pulse 94 Oximetry Constitutional: no acute distress, alert Eyes: icteric ENT: oropharynx moist, other (extubated) Neck: supple, no lymphadenopathy, no JVD, other (large neck circumference) Effort: mildly labored Ascultation: Bilateral: diminished breath sounds, rales, rhonchi (scant) Percussion: Bilateral: not dull Cardiovascular: irregular rhythm, other ( S1,S2) Gastrointestinal: hypoactive bowel sounds, soft, non-tender, non-distended, other (obese) Integumentary: normal, other (blisters with some weeping over the extremities) Extremities: no cyanosis, pink and warm, pulses normal, no ischemia or petechiae Neurologic: normal mental status, non-focal exam (grossly), pupils equal and round, CN II-XII normal, other (very weak) Psychiatric: mood appropriate, affect normal CBC and BMP: 04/27/19 05:05 04/30/19 06:47 ABG, PT/INR, D-dimer: ABG POC ABG pH 7.401 (7.35-7.45) 04/07/19 12:57 ABG pH 7.388 pH Units (7.350-7.450) 04/06/19 05:20 POC ABG pCO2 41.5 (35-45) 04/07/19 12:57 ABG pCO2 38.5 mm Hg 04/06/19 05:20 POC ABG pO2 107 (80-105) H 04/07/19 12:57 ABG pO2 104.0 mm Hg (80.0-90.0) H 04/06/19 05:20 POC ABG HCO3 25.7 (22-26 mml/L) 04/07/19 12:57 POC ABG Total CO2 27 (23-27mmol/L) 04/07/19 12:57 POC ABG O2 Sat 98 04/07/19 12:57 ABG O2 Saturation 97.8 % (95.0-99.0) 04/06/19 05:20 PT/INR, D-dimer PT 15.3 Sec. (12.2-14.9) H 03/29/19 11:48 INR 1.24 (0.87-1.13) H 03/29/19 11:48 D-Dimer 4845.98 ng/mlDDU (0-234) H 03/28/19 12:00 Abnormal lab findings: Abnormal Labs 03/16/19 03/16/19 03/16/19 15:32 16:03 16:05 WBC 27.0 H RBC 5.55 H Hgb 15.7 H Hct 47.1 H MCV MCHC RDW Plt Count 75 L Lymph % (Auto) [place] % (Auto) Lymph # [place] # Seg Neutrophils % Seg Neuts % (Manual) 85.0 H Lymphocytes % (Manual) 2.0 L Monocytes % (Manual) Nucleated RBC % Seg Neutrophils # Seg Neutrophils # Man 23.0 H Lymphocytes # (Manual) 0.5 L Monocytes # (Manual) PT INR D-Dimer Heparin Anti-Xa Level POC ABG pH ABG pH POC ABG pCO2 POC ABG pO2 ABG pO2 ABG HCO3 ABG O2 Saturation ABG Base Excess ABG Hemoglobin Oxyhemoglobin Sodium 127 L Potassium Chloride 87.8 L Carbon Dioxide 17 L BUN 49 H Creatinine 5.8 H Glucose 150 H POC Glucose 118 H Lactic Acid Calcium 6.6 L Ionized Calcium Phosphorus Magnesium 1.10 L Iron TIBC Ferritin Total Bilirubin Direct Bilirubin AST ALT Alkaline Phosphatase Total Creatine Kinase 69461 H CK-MB (CK-2) Troponin T C-Reactive Protein Serum Total Protein Total Protein Albumin Bfaeq-8-Ugwxwlpbl Zxzho-6-Qwpbrahjt PEP Interpretation Triglycerides LDL Cholesterol Direct HDL Cholesterol Free T4 PTH Intact Urine WBC (Auto) Urine Creatinine Salicylates Acetaminophen Crossmatch 03/16/19 03/16/19 03/16/19 16:59 17:05 17:05 WBC RBC Hgb Hct MCV MCHC RDW Plt Count Lymph % (Auto) [place] % (Auto) Lymph # [place] # Seg Neutrophils % Seg Neuts % (Manual) Lymphocytes % (Manual) Monocytes % (Manual) Nucleated RBC % Seg Neutrophils # Seg Neutrophils # Man Lymphocytes # (Manual) Monocytes # (Manual) PT INR D-Dimer Heparin Anti-Xa Level POC ABG pH 7.297 L ABG pH POC ABG pCO2 33.0 L POC ABG pO2 ABG pO2 ABG HCO3 ABG O2 Saturation ABG Base Excess ABG Hemoglobin Oxyhemoglobin Sodium Potassium Chloride Carbon Dioxide BUN Creatinine Glucose POC Glucose Lactic Acid Calcium Ionized Calcium Phosphorus Magnesium Iron TIBC Ferritin Total Bilirubin Direct Bilirubin AST ALT Alkaline Phosphatase Total Creatine Kinase 72675 H CK-MB (CK-2) 83.1 H Troponin T C-Reactive Protein Serum Total Protein Total Protein Albumin Xdmju-2-Rtfwttefr Mpwvj-7-Mpwizihzf PEP Interpretation Triglycerides LDL Cholesterol Direct HDL Cholesterol Free T4 0.72 L PTH Intact Urine WBC (Auto) Urine Creatinine Salicylates Acetaminophen Crossmatch 03/16/19 03/16/19 03/16/19 17:05 17:05 17:05 WBC RBC Hgb Hct MCV MCHC RDW Plt Count Lymph % (Auto) [place] % (Auto) Lymph # [place] # Seg Neutrophils % Seg Neuts % (Manual) Lymphocytes % (Manual) Monocytes % (Manual) Nucleated RBC % Seg Neutrophils # Seg Neutrophils # Man Lymphocytes # (Manual) Monocytes # (Manual) PT INR D-Dimer Heparin Anti-Xa Level POC ABG pH ABG pH POC ABG pCO2 POC ABG pO2 ABG pO2 ABG HCO3 ABG O2 Saturation ABG Base Excess ABG Hemoglobin Oxyhemoglobin Sodium Potassium Chloride Carbon Dioxide BUN Creatinine Glucose POC Glucose Lactic Acid 5.10 H* Calcium Ionized Calcium Phosphorus Magnesium Iron TIBC Ferritin Total Bilirubin Direct Bilirubin AST ALT Alkaline Phosphatase Total Creatine Kinase CK-MB (CK-2) Troponin T C-Reactive Protein Serum Total Protein Total Protein Albumin Eelgp-1-Ejxscpcev Arqtd-4-Mbhmzchud PEP Interpretation Triglycerides LDL Cholesterol Direct HDL Cholesterol Free T4 PTH Intact Urine WBC (Auto) Urine Creatinine Salicylates < 0.3 L Acetaminophen < 5.0 L Crossmatch 03/16/19 03/16/19 03/16/19 17:05 17:05 20:35 WBC RBC Hgb Hct MCV MCHC RDW Plt Count Lymph % (Auto) [place] % (Auto) Lymph # [place] # Seg Neutrophils % Seg Neuts % (Manual) Lymphocytes % (Manual) Monocytes % (Manual) Nucleated RBC % Seg Neutrophils # Seg Neutrophils # Man Lymphocytes # (Manual) Monocytes # (Manual) PT 15.9 H INR 1.30 H D-Dimer Heparin Anti-Xa Level POC ABG pH ABG pH POC ABG pCO2 POC ABG pO2 ABG pO2 ABG HCO3 ABG O2 Saturation ABG Base Excess ABG Hemoglobin Oxyhemoglobin Sodium Potassium Chloride Carbon Dioxide BUN Creatinine Glucose POC Glucose Lactic Acid 3.30 H* Calcium Ionized Calcium Phosphorus Magnesium Iron TIBC Ferritin Total Bilirubin 6.20 H Direct Bilirubin 5.9 H AST 800 H ALT 120 H Alkaline Phosphatase Total Creatine Kinase CK-MB (CK-2) Troponin T C-Reactive Protein Serum Total Protein Total Protein 4.4 L Albumin 2.4 L Ppqcx-2-Zzjtesdum Jslwn-9-Fsivqeteb PEP Interpretation Triglycerides LDL Cholesterol Direct HDL Cholesterol Free T4 PTH Intact Urine WBC (Auto) Urine Creatinine Salicylates Acetaminophen Crossmatch 03/16/19 03/16/19 03/16/19 21:45 22:32 Unknown WBC RBC Hgb Hct MCV MCHC RDW Plt Count Lymph % (Auto) [place] % (Auto) Lymph # [place] # Seg Neutrophils % Seg Neuts % (Manual) Lymphocytes % (Manual) Monocytes % (Manual) Nucleated RBC % Seg Neutrophils # Seg Neutrophils # Man Lymphocytes # (Manual) Monocytes # (Manual) PT INR D-Dimer Heparin Anti-Xa Level POC ABG pH ABG pH POC ABG pCO2 POC ABG pO2 ABG pO2 ABG HCO3 ABG O2 Saturation ABG Base Excess ABG Hemoglobin Oxyhemoglobin Sodium Potassium Chloride Carbon Dioxide BUN Creatinine Glucose POC Glucose Lactic Acid 3.30 H* 3.00 H* Calcium Ionized Calcium Phosphorus Magnesium Iron TIBC Ferritin Total Bilirubin Direct Bilirubin AST ALT Alkaline Phosphatase Total Creatine Kinase CK-MB (CK-2) Troponin T 0.047 H D C-Reactive Protein Serum Total Protein Total Protein Albumin Nwkhv-2-Mjyvjmcgc Hidmf-6-Wshfqwlwy PEP Interpretation Triglycerides 395 H LDL Cholesterol Direct 10 L HDL Cholesterol 7 L Free T4 PTH Intact Urine WBC (Auto) Urine Creatinine Salicylates Acetaminophen Crossmatch 03/17/19 03/17/19 03/17/19 03:45 03:45 03:45 WBC RBC Hgb Hct MCV MCHC RDW Plt Count Lymph % (Auto) [place] % (Auto) Lymph # [place] # Seg Neutrophils % Seg Neuts % (Manual) Lymphocytes % (Manual) Monocytes % (Manual) Nucleated RBC % Seg Neutrophils # Seg Neutrophils # Man Lymphocytes # (Manual) Monocytes # (Manual) PT INR D-Dimer Heparin Anti-Xa Level POC ABG pH ABG pH POC ABG pCO2 POC ABG pO2 ABG pO2 ABG HCO3 ABG O2 Saturation ABG Base Excess ABG Hemoglobin Oxyhemoglobin Sodium 131 L Potassium Chloride 88.9 L Carbon Dioxide BUN 53 H Creatinine 7.1 H Glucose POC Glucose Lactic Acid 4.10 H* Calcium 5.4 L* D Ionized Calcium Phosphorus 7.30 H Magnesium 1.60 L Iron TIBC Ferritin Total Bilirubin 5.90 H Direct Bilirubin AST 801 H ALT 109 H Alkaline Phosphatase Total Creatine Kinase 94521 H 07862 H CK-MB (CK-2) 41.5 H Troponin T 0.054 H C-Reactive Protein Serum Total Protein Total Protein 4.5 L Albumin 2.0 L Evsma-4-Coqxaxxmp Ucxcm-9-Muoqublwv PEP Interpretation Triglycerides LDL Cholesterol Direct HDL Cholesterol Free T4 PTH Intact Urine WBC (Auto) Urine Creatinine Salicylates Acetaminophen Crossmatch 03/17/19 03/17/19 03/17/19 05:47 07:16 07:16 WBC RBC Hgb Hct MCV MCHC RDW Plt Count Lymph % (Auto) [place] % (Auto) Lymph # [place] # Seg Neutrophils % Seg Neuts % (Manual) Lymphocytes % (Manual) Monocytes % (Manual) Nucleated RBC % Seg Neutrophils # Seg Neutrophils # Man Lymphocytes # (Manual) Monocytes # (Manual) PT INR D-Dimer Heparin Anti-Xa Level POC ABG pH 7.193 L ABG pH POC ABG pCO2 45.2 H POC ABG pO2 65 L ABG pO2 ABG HCO3 ABG O2 Saturation ABG Base Excess ABG Hemoglobin Oxyhemoglobin Sodium Potassium Chloride Carbon Dioxide BUN Creatinine Glucose POC Glucose Lactic Acid 5.50 H* Calcium Ionized Calcium Phosphorus Magnesium Iron TIBC Ferritin Total Bilirubin Direct Bilirubin AST ALT Alkaline Phosphatase Total Creatine Kinase 66429 H CK-MB (CK-2) 54.3 H Troponin T 0.058 H C-Reactive Protein Serum Total Protein Total Protein Albumin Jzdzi-0-Nycrcpmuo Wlylv-1-Upsbjujdd PEP Interpretation Triglycerides LDL Cholesterol Direct HDL Cholesterol Free T4 PTH Intact Urine WBC (Auto) Urine Creatinine Salicylates Acetaminophen Crossmatch 03/17/19 03/17/19 03/17/19 11:52 12:51 13:01 WBC RBC Hgb Hct MCV MCHC RDW Plt Count Lymph % (Auto) [place] % (Auto) Lymph # [place] # Seg Neutrophils % Seg Neuts % (Manual) Lymphocytes % (Manual) Monocytes % (Manual) Nucleated RBC % Seg Neutrophils # Seg Neutrophils # Man Lymphocytes # (Manual) Monocytes # (Manual) PT INR D-Dimer Heparin Anti-Xa Level POC ABG pH 7.154 L ABG pH POC ABG pCO2 34.3 L POC ABG pO2 73 L ABG pO2 ABG HCO3 ABG O2 Saturation ABG Base Excess ABG Hemoglobin Oxyhemoglobin Sodium Potassium Chloride Carbon Dioxide BUN Creatinine Glucose POC Glucose 60 L Lactic Acid 8.20 H* Calcium Ionized Calcium Phosphorus Magnesium Iron TIBC Ferritin Total Bilirubin Direct Bilirubin AST ALT Alkaline Phosphatase Total Creatine Kinase CK-MB (CK-2) Troponin T C-Reactive Protein Serum Total Protein Total Protein Albumin Oxoap-2-Rjkzstlzq Tcczm-4-Bohzyqpjl PEP Interpretation Triglycerides LDL Cholesterol Direct HDL Cholesterol Free T4 PTH Intact Urine WBC (Auto) Urine Creatinine Salicylates Acetaminophen Crossmatch 03/17/19 03/17/19 03/17/19 14:37 14:37 14:37 WBC 29.3 H RBC Hgb Hct MCV MCHC RDW 15.8 H Plt Count 45 L Lymph % (Auto) [place] % (Auto) Lymph # [place] # Seg Neutrophils % Seg Neuts % (Manual) 81.0 H Lymphocytes % (Manual) 1.0 L Monocytes % (Manual) 15.0 H Nucleated RBC % Seg Neutrophils # Seg Neutrophils # Man 23.7 H Lymphocytes # (Manual) 0.3 L Monocytes # (Manual) 4.4 H PT INR D-Dimer Heparin Anti-Xa Level POC ABG pH ABG pH POC ABG pCO2 POC ABG pO2 ABG pO2 ABG HCO3 ABG O2 Saturation ABG Base Excess ABG Hemoglobin Oxyhemoglobin Sodium Potassium Chloride Carbon Dioxide BUN Creatinine Glucose POC Glucose Lactic Acid 4.90 H* Calcium Ionized Calcium Phosphorus Magnesium Iron TIBC Ferritin Total Bilirubin Direct Bilirubin AST ALT Alkaline Phosphatase Total Creatine Kinase CK-MB (CK-2) Troponin T C-Reactive Protein 24.90 H Serum Total Protein Total Protein Albumin Fjjar-5-Ivaykmjkb Nueyf-0-Xzwixmsze PEP Interpretation Triglycerides LDL Cholesterol Direct HDL Cholesterol Free T4 PTH Intact Urine WBC (Auto) Urine Creatinine Salicylates Acetaminophen Crossmatch 03/17/19 03/17/19 03/17/19 16:05 16:05 17:02 WBC RBC Hgb Hct MCV MCHC RDW Plt Count Lymph % (Auto) [place] % (Auto) Lymph # [place] # Seg Neutrophils % Seg Neuts % (Manual) Lymphocytes % (Manual) Monocytes % (Manual) Nucleated RBC % Seg Neutrophils # Seg Neutrophils # Man Lymphocytes # (Manual) Monocytes # (Manual) PT INR D-Dimer Heparin Anti-Xa Level POC ABG pH 7.183 L ABG pH POC ABG pCO2 POC ABG pO2 65 L ABG pO2 ABG HCO3 ABG O2 Saturation ABG Base Excess ABG Hemoglobin Oxyhemoglobin Sodium Potassium Chloride Carbon Dioxide BUN Creatinine Glucose POC Glucose Lactic Acid Calcium Ionized Calcium Phosphorus Magnesium Iron TIBC Ferritin Total Bilirubin Direct Bilirubin AST ALT Alkaline Phosphatase Total Creatine Kinase CK-MB (CK-2) Troponin T C-Reactive Protein Serum Total Protein Total Protein Albumin Qkayg-1-Fkopazdrc Onvnh-0-Lcujnaltv PEP Interpretation Triglycerides LDL Cholesterol Direct HDL Cholesterol Free T4 PTH Intact Urine WBC (Auto) 30.0 H Urine Creatinine 106.6 H Salicylates Acetaminophen Crossmatch 03/18/19 03/18/19 03/18/19 05:12 05:16 05:53 WBC RBC Hgb Hct MCV MCHC RDW Plt Count Lymph % (Auto) [place] % (Auto) Lymph # [place] # Seg Neutrophils % Seg Neuts % (Manual) Lymphocytes % (Manual) Monocytes % (Manual) Nucleated RBC % Seg Neutrophils # Seg Neutrophils # Man Lymphocytes # (Manual) Monocytes # (Manual) PT INR D-Dimer Heparin Anti-Xa Level POC ABG pH 7.257 L ABG pH POC ABG pCO2 31.6 L POC ABG pO2 69 L ABG pO2 ABG HCO3 ABG O2 Saturation ABG Base Excess ABG Hemoglobin Oxyhemoglobin Sodium Potassium Chloride Carbon Dioxide BUN Creatinine Glucose POC Glucose 141 H Lactic Acid 5.00 H* Calcium Ionized Calcium Phosphorus Magnesium Iron TIBC Ferritin Total Bilirubin Direct Bilirubin AST ALT Alkaline Phosphatase Total Creatine Kinase CK-MB (CK-2) Troponin T C-Reactive Protein Serum Total Protein Total Protein Albumin Ksfmx-4-Hznbrogzk Qbnzd-9-Aevyzvogn PEP Interpretation Triglycerides LDL Cholesterol Direct HDL Cholesterol Free T4 PTH Intact Urine WBC (Auto) Urine Creatinine Salicylates Acetaminophen Crossmatch 03/18/19 03/18/19 03/18/19 06:57 08:40 08:40 WBC 31.7 H RBC Hgb Hct MCV MCHC RDW 15.5 H Plt Count 35 L Lymph % (Auto) [place] % (Auto) Lymph # [place] # Seg Neutrophils % Seg Neuts % (Manual) Lymphocytes % (Manual) Monocytes % (Manual) Nucleated RBC % Seg Neutrophils # Seg Neutrophils # Man Lymphocytes # (Manual) Monocytes # (Manual) PT INR D-Dimer Heparin Anti-Xa Level POC ABG pH ABG pH POC ABG pCO2 POC ABG pO2 ABG pO2 ABG HCO3 ABG O2 Saturation ABG Base Excess ABG Hemoglobin Oxyhemoglobin Sodium 132 L Potassium 5.5 H D Chloride 88.5 L Carbon Dioxide 18 L BUN 71 H Creatinine 8.1 H Glucose 205 H POC Glucose Lactic Acid 5.00 H* Calcium 4.1 L* D Ionized Calcium Phosphorus Magnesium 2.40 H Iron TIBC Ferritin Total Bilirubin 7.50 H Direct Bilirubin AST 1088 H ALT 159 H Alkaline Phosphatase 190 H Total Creatine Kinase 687609 H CK-MB (CK-2) Troponin T C-Reactive Protein Serum Total Protein Total Protein 4.7 L Albumin 1.8 L Jqorq-9-Fzvwswefu Zsluy-7-Gamgmxhhx PEP Interpretation Triglycerides LDL Cholesterol Direct HDL Cholesterol Free T4 PTH Intact Urine WBC (Auto) Urine Creatinine Salicylates Acetaminophen Crossmatch 03/18/19 03/18/19 03/18/19 12:33 12:50 13:19 WBC RBC Hgb Hct MCV MCHC RDW Plt Count Lymph % (Auto) [place] % (Auto) Lymph # [place] # Seg Neutrophils % Seg Neuts % (Manual) Lymphocytes % (Manual) Monocytes % (Manual) Nucleated RBC % Seg Neutrophils # Seg Neutrophils # Man Lymphocytes # (Manual) Monocytes # (Manual) PT INR D-Dimer Heparin Anti-Xa Level POC ABG pH 7.282 L ABG pH POC ABG pCO2 POC ABG pO2 67 L ABG pO2 ABG HCO3 ABG O2 Saturation ABG Base Excess ABG Hemoglobin Oxyhemoglobin Sodium Potassium Chloride Carbon Dioxide BUN Creatinine Glucose POC Glucose 129 H Lactic Acid 3.30 H* Calcium Ionized Calcium Phosphorus Magnesium Iron TIBC Ferritin Total Bilirubin Direct Bilirubin AST ALT Alkaline Phosphatase Total Creatine Kinase CK-MB (CK-2) Troponin T C-Reactive Protein Serum Total Protein Total Protein Albumin Oqpkk-4-Icydjodiy Ytenr-6-Jbxnwhlep PEP Interpretation Triglycerides LDL Cholesterol Direct HDL Cholesterol Free T4 PTH Intact Urine WBC (Auto) Urine Creatinine Salicylates Acetaminophen Crossmatch 03/18/19 03/18/19 03/18/19 13:19 16:50 18:11 WBC RBC Hgb Hct MCV MCHC RDW Plt Count Lymph % (Auto) [place] % (Auto) Lymph # [place] # Seg Neutrophils % Seg Neuts % (Manual) Lymphocytes % (Manual) Monocytes % (Manual) Nucleated RBC % Seg Neutrophils # Seg Neutrophils # Man Lymphocytes # (Manual) Monocytes # (Manual) PT INR D-Dimer Heparin Anti-Xa Level POC ABG pH ABG pH POC ABG pCO2 POC ABG pO2 59 L ABG pO2 ABG HCO3 ABG O2 Saturation ABG Base Excess ABG Hemoglobin Oxyhemoglobin Sodium Potassium Chloride Carbon Dioxide BUN Creatinine Glucose POC Glucose 151 H Lactic Acid Calcium 4.2 L* Ionized Calcium Phosphorus Magnesium Iron TIBC Ferritin Total Bilirubin Direct Bilirubin AST ALT Alkaline Phosphatase Total Creatine Kinase 604265 H CK-MB (CK-2) Troponin T C-Reactive Protein Serum Total Protein Total Protein Albumin Cghve-6-Ylmxvhtvu Gxktt-7-Joncymhjo PEP Interpretation Triglycerides LDL Cholesterol Direct HDL Cholesterol Free T4 PTH Intact Urine WBC (Auto) Urine Creatinine Salicylates Acetaminophen Crossmatch 03/18/19 03/18/19 03/19/19 18:20 23:39 01:42 WBC RBC Hgb Hct MCV MCHC RDW Plt Count Lymph % (Auto) [place] % (Auto) Lymph # [place] # Seg Neutrophils % Seg Neuts % (Manual) Lymphocytes % (Manual) Monocytes % (Manual) Nucleated RBC % Seg Neutrophils # Seg Neutrophils # Man Lymphocytes # (Manual) Monocytes # (Manual) PT INR D-Dimer Heparin Anti-Xa Level POC ABG pH 7.345 L ABG pH 7.285 L POC ABG pCO2 POC ABG pO2 59 L ABG pO2 44.0 L ABG HCO3 ABG O2 Saturation 70.9 L ABG Base Excess -5.7 L ABG Hemoglobin 11.9 L Oxyhemoglobin 69.6 L Sodium Potassium Chloride Carbon Dioxide BUN Creatinine Glucose POC Glucose 152 H Lactic Acid Calcium Ionized Calcium Phosphorus Magnesium Iron TIBC Ferritin Total Bilirubin Direct Bilirubin AST ALT Alkaline Phosphatase Total Creatine Kinase CK-MB (CK-2) Troponin T C-Reactive Protein Serum Total Protein Total Protein Albumin Tpqsa-8-Kzeawkggr Cjjev-4-Qekgymfud PEP Interpretation Triglycerides LDL Cholesterol Direct HDL Cholesterol Free T4 PTH Intact Urine WBC (Auto) Urine Creatinine Salicylates Acetaminophen Crossmatch 03/19/19 03/19/19 03/19/19 04:00 04:00 05:35 WBC 36.5 H RBC Hgb Hct MCV MCHC RDW 15.8 H Plt Count 35 L Lymph % (Auto) [place] % (Auto) Lymph # [place] # Seg Neutrophils % Seg Neuts % (Manual) Lymphocytes % (Manual) Monocytes % (Manual) Nucleated RBC % Seg Neutrophils # Seg Neutrophils # Man Lymphocytes # (Manual) Monocytes # (Manual) PT INR D-Dimer Heparin Anti-Xa Level POC ABG pH ABG pH 7.265 L POC ABG pCO2 POC ABG pO2 ABG pO2 35.4 L* ABG HCO3 ABG O2 Saturation 54.4 L ABG Base Excess -6.7 L ABG Hemoglobin 12.9 L Oxyhemoglobin 53.4 L Sodium 132 L Potassium 5.7 H Chloride 89.8 L Carbon Dioxide 19 L BUN 62 H Creatinine 6.4 H Glucose 151 H POC Glucose Lactic Acid Calcium 5.2 L* D Ionized Calcium Phosphorus Magnesium Iron TIBC Ferritin Total Bilirubin 7.80 H Direct Bilirubin AST 682 H ALT 130 H Alkaline Phosphatase 167 H Total Creatine Kinase CK-MB (CK-2) Troponin T C-Reactive Protein Serum Total Protein Total Protein 4.8 L Albumin 2.3 L Rbhzy-8-Jhhaybfir Dbnmd-0-Usneszbdm PEP Interpretation Triglycerides LDL Cholesterol Direct HDL Cholesterol Free T4 PTH Intact Urine WBC (Auto) Urine Creatinine Salicylates Acetaminophen Crossmatch 03/19/19 03/19/19 03/19/19 05:49 09:16 09:50 WBC RBC Hgb Hct MCV MCHC RDW Plt Count Lymph % (Auto) [place] % (Auto) Lymph # [place] # Seg Neutrophils % Seg Neuts % (Manual) Lymphocytes % (Manual) Monocytes % (Manual) Nucleated RBC % Seg Neutrophils # Seg Neutrophils # Man Lymphocytes # (Manual) Monocytes # (Manual) PT INR D-Dimer Heparin Anti-Xa Level POC ABG pH 7.222 L ABG pH POC ABG pCO2 56.6 H POC ABG pO2 ABG pO2 ABG HCO3 ABG O2 Saturation ABG Base Excess ABG Hemoglobin Oxyhemoglobin Sodium Potassium Chloride Carbon Dioxide BUN Creatinine Glucose POC Glucose 154 H Lactic Acid 2.70 H* Calcium Ionized Calcium Phosphorus Magnesium Iron TIBC Ferritin Total Bilirubin Direct Bilirubin AST ALT Alkaline Phosphatase Total Creatine Kinase CK-MB (CK-2) Troponin T C-Reactive Protein Serum Total Protein Total Protein Albumin Cyrzo-6-Vvtrusczf Klrhz-6-Uaayxabme PEP Interpretation Triglycerides LDL Cholesterol Direct HDL Cholesterol Free T4 PTH Intact Urine WBC (Auto) Urine Creatinine Salicylates Acetaminophen Crossmatch 03/19/19 03/19/19 03/19/19 09:50 11:28 17:58 WBC RBC Hgb Hct MCV MCHC RDW Plt Count Lymph % (Auto) [place] % (Auto) Lymph # [place] # Seg Neutrophils % Seg Neuts % (Manual) Lymphocytes % (Manual) Monocytes % (Manual) Nucleated RBC % Seg Neutrophils # Seg Neutrophils # Man Lymphocytes # (Manual) Monocytes # (Manual) PT INR D-Dimer Heparin Anti-Xa Level POC ABG pH 7.250 L ABG pH POC ABG pCO2 52.6 H POC ABG pO2 ABG pO2 ABG HCO3 ABG O2 Saturation ABG Base Excess ABG Hemoglobin Oxyhemoglobin Sodium Potassium Chloride Carbon Dioxide BUN Creatinine Glucose POC Glucose 160 H Lactic Acid Calcium Ionized Calcium Phosphorus Magnesium Iron TIBC Ferritin Total Bilirubin Direct Bilirubin AST ALT Alkaline Phosphatase Total Creatine Kinase 47377 H CK-MB (CK-2) Troponin T C-Reactive Protein Serum Total Protein Total Protein Albumin Rpwug-4-Kaqdsmuay Eahoy-6-Mrkqxnlvr PEP Interpretation Triglycerides LDL Cholesterol Direct HDL Cholesterol Free T4 PTH Intact Urine WBC (Auto) Urine Creatinine Salicylates Acetaminophen Crossmatch 03/19/19 03/19/19 03/20/19 19:48 21:03 02:16 WBC RBC Hgb Hct MCV MCHC RDW Plt Count Lymph % (Auto) [place] % (Auto) Lymph # [place] # Seg Neutrophils % Seg Neuts % (Manual) Lymphocytes % (Manual) Monocytes % (Manual) Nucleated RBC % Seg Neutrophils # Seg Neutrophils # Man Lymphocytes # (Manual) Monocytes # (Manual) PT INR D-Dimer Heparin Anti-Xa Level POC ABG pH 7.279 L ABG pH POC ABG pCO2 50.3 H POC ABG pO2 129 H ABG pO2 ABG HCO3 ABG O2 Saturation ABG Base Excess ABG Hemoglobin Oxyhemoglobin Sodium Potassium Chloride Carbon Dioxide BUN Creatinine Glucose POC Glucose 119 H 119 H Lactic Acid Calcium Ionized Calcium Phosphorus Magnesium Iron TIBC Ferritin Total Bilirubin Direct Bilirubin AST ALT Alkaline Phosphatase Total Creatine Kinase CK-MB (CK-2) Troponin T C-Reactive Protein Serum Total Protein Total Protein Albumin Quwol-7-Fsknxbqqn Gaclt-1-Gefdxfpet PEP Interpretation Triglycerides LDL Cholesterol Direct HDL Cholesterol Free T4 PTH Intact Urine WBC (Auto) Urine Creatinine Salicylates Acetaminophen Crossmatch 03/20/19 03/20/19 03/20/19 04:23 05:05 09:30 WBC 36.3 H RBC Hgb Hct MCV MCHC RDW 15.5 H Plt Count 29 L Lymph % (Auto) [place] % (Auto) Lymph # [place] # Seg Neutrophils % Seg Neuts % (Manual) Lymphocytes % (Manual) Monocytes % (Manual) Nucleated RBC % Seg Neutrophils # Seg Neutrophils # Man Lymphocytes # (Manual) Monocytes # (Manual) PT INR D-Dimer Heparin Anti-Xa Level POC ABG pH ABG pH POC ABG pCO2 POC ABG pO2 280 H ABG pO2 ABG HCO3 ABG O2 Saturation ABG Base Excess ABG Hemoglobin Oxyhemoglobin Sodium Potassium Chloride Carbon Dioxide BUN Creatinine Glucose POC Glucose 115 H Lactic Acid Calcium Ionized Calcium Phosphorus Magnesium Iron TIBC Ferritin Total Bilirubin Direct Bilirubin AST ALT Alkaline Phosphatase Total Creatine Kinase CK-MB (CK-2) Troponin T C-Reactive Protein Serum Total Protein Total Protein Albumin Wzins-9-Aiialvawn Jiiul-0-Uymsqyvus PEP Interpretation Triglycerides LDL Cholesterol Direct HDL Cholesterol Free T4 PTH Intact Urine WBC (Auto) Urine Creatinine Salicylates Acetaminophen Crossmatch 03/20/19 03/20/19 03/20/19 09:30 09:30 11:34 WBC RBC Hgb Hct MCV MCHC RDW Plt Count Lymph % (Auto) [place] % (Auto) Lymph # [place] # Seg Neutrophils % Seg Neuts % (Manual) Lymphocytes % (Manual) Monocytes % (Manual) Nucleated RBC % Seg Neutrophils # Seg Neutrophils # Man Lymphocytes # (Manual) Monocytes # (Manual) PT INR D-Dimer Heparin Anti-Xa Level POC ABG pH ABG pH POC ABG pCO2 POC ABG pO2 ABG pO2 ABG HCO3 ABG O2 Saturation ABG Base Excess ABG Hemoglobin Oxyhemoglobin Sodium 131 L Potassium Chloride 92.3 L Carbon Dioxide 20 L BUN 68 H Creatinine 6.1 H Glucose 164 H POC Glucose 141 H Lactic Acid Calcium 5.3 L* Ionized Calcium Phosphorus Magnesium Iron TIBC Ferritin Total Bilirubin 9.50 H Direct Bilirubin AST 381 H ALT 116 H Alkaline Phosphatase 255 H Total Creatine Kinase 05345 H CK-MB (CK-2) Troponin T C-Reactive Protein Serum Total Protein Total Protein 5.1 L Albumin 2.3 L Xxtmr-0-Eenycymoe Ksore-1-Mepdmntww PEP Interpretation Triglycerides LDL Cholesterol Direct HDL Cholesterol Free T4 PTH Intact Urine WBC (Auto) Urine Creatinine Salicylates Acetaminophen Crossmatch 03/20/19 03/20/19 03/20/19 14:41 14:45 18:50 WBC RBC Hgb Hct MCV MCHC RDW Plt Count Lymph % (Auto) [place] % (Auto) Lymph # [place] # Seg Neutrophils % Seg Neuts % (Manual) Lymphocytes % (Manual) Monocytes % (Manual) Nucleated RBC % Seg Neutrophils # Seg Neutrophils # Man Lymphocytes # (Manual) Monocytes # (Manual) PT INR D-Dimer Heparin Anti-Xa Level POC ABG pH ABG pH POC ABG pCO2 POC ABG pO2 ABG pO2 ABG HCO3 ABG O2 Saturation ABG Base Excess ABG Hemoglobin Oxyhemoglobin Sodium Potassium Chloride Carbon Dioxide BUN Creatinine Glucose POC Glucose 117 H Lactic Acid 2.90 H* Calcium Ionized Calcium Phosphorus Magnesium Iron TIBC Ferritin Total Bilirubin Direct Bilirubin AST ALT Alkaline Phosphatase Total Creatine Kinase CK-MB (CK-2) Troponin T C-Reactive Protein 13.30 H Serum Total Protein Total Protein Albumin Maqhj-8-Bqbyboqqs Blman-4-Pfrmqljtt PEP Interpretation Triglycerides LDL Cholesterol Direct HDL Cholesterol Free T4 PTH Intact Urine WBC (Auto) Urine Creatinine Salicylates Acetaminophen Crossmatch 03/20/19 03/21/19 03/21/19 21:55 04:26 04:26 WBC 37.8 H RBC Hgb Hct MCV MCHC RDW 15.4 H Plt Count 36 L Lymph % (Auto) [place] % (Auto) Lymph # [place] # Seg Neutrophils % Seg Neuts % (Manual) 93.0 H Lymphocytes % (Manual) 3.0 L Monocytes % (Manual) Nucleated RBC % 1.0 H Seg Neutrophils # 34.6 H Seg Neutrophils # Man 35.2 H Lymphocytes # (Manual) 1.1 L Monocytes # (Manual) PT INR D-Dimer Heparin Anti-Xa Level POC ABG pH ABG pH POC ABG pCO2 POC ABG pO2 ABG pO2 ABG HCO3 ABG O2 Saturation ABG Base Excess ABG Hemoglobin Oxyhemoglobin Sodium 131 L Potassium Chloride 90.7 L Carbon Dioxide 21 L BUN 69 H Creatinine 5.7 H Glucose 170 H POC Glucose 128 H Lactic Acid Calcium 6.1 L D Ionized Calcium Phosphorus Magnesium Iron TIBC Ferritin Total Bilirubin 9.50 H Direct Bilirubin AST 308 H ALT 124 H Alkaline Phosphatase 327 H Total Creatine Kinase 14751 H CK-MB (CK-2) Troponin T C-Reactive Protein Serum Total Protein Total Protein 5.7 L Albumin 2.6 L Sukjn-0-Cgbcbdjqo Khxmd-5-Vxzwpuweq PEP Interpretation Triglycerides LDL Cholesterol Direct HDL Cholesterol Free T4 PTH Intact Urine WBC (Auto) Urine Creatinine Salicylates Acetaminophen Crossmatch 03/21/19 03/21/19 03/21/19 05:17 05:39 08:29 WBC RBC Hgb Hct MCV MCHC RDW Plt Count Lymph % (Auto) [place] % (Auto) Lymph # [place] # Seg Neutrophils % Seg Neuts % (Manual) Lymphocytes % (Manual) Monocytes % (Manual) Nucleated RBC % Seg Neutrophils # Seg Neutrophils # Man Lymphocytes # (Manual) Monocytes # (Manual) PT INR D-Dimer Heparin Anti-Xa Level POC ABG pH ABG pH POC ABG pCO2 POC ABG pO2 209 H ABG pO2 ABG HCO3 ABG O2 Saturation ABG Base Excess ABG Hemoglobin Oxyhemoglobin Sodium Potassium Chloride Carbon Dioxide BUN Creatinine Glucose POC Glucose 145 H Lactic Acid Calcium Ionized Calcium Phosphorus Magnesium Iron TIBC Ferritin Total Bilirubin Direct Bilirubin AST ALT Alkaline Phosphatase Total Creatine Kinase 99762 H CK-MB (CK-2) Troponin T C-Reactive Protein Serum Total Protein Total Protein Albumin Hwndi-4-Hqzktdrdh Orbno-5-Qtcarsavk PEP Interpretation Triglycerides LDL Cholesterol Direct HDL Cholesterol Free T4 PTH Intact Urine WBC (Auto) Urine Creatinine Salicylates Acetaminophen Crossmatch 03/21/19 03/21/19 03/21/19 08:29 11:43 12:00 WBC RBC Hgb Hct MCV MCHC RDW Plt Count Lymph % (Auto) [place] % (Auto) Lymph # [place] # Seg Neutrophils % Seg Neuts % (Manual) Lymphocytes % (Manual) Monocytes % (Manual) Nucleated RBC % Seg Neutrophils # Seg Neutrophils # Man Lymphocytes # (Manual) Monocytes # (Manual) PT INR D-Dimer Heparin Anti-Xa Level POC ABG pH ABG pH POC ABG pCO2 POC ABG pO2 ABG pO2 ABG HCO3 ABG O2 Saturation ABG Base Excess ABG Hemoglobin Oxyhemoglobin Sodium Potassium Chloride Carbon Dioxide BUN Creatinine Glucose POC Glucose 123 H Lactic Acid 2.60 H* 2.20 H* Calcium Ionized Calcium Phosphorus Magnesium Iron TIBC Ferritin Total Bilirubin Direct Bilirubin AST ALT Alkaline Phosphatase Total Creatine Kinase CK-MB (CK-2) Troponin T C-Reactive Protein Serum Total Protein Total Protein Albumin Jjihu-5-Jfmxghbhj Csyls-8-Ejwyqbhjf PEP Interpretation Triglycerides LDL Cholesterol Direct HDL Cholesterol Free T4 PTH Intact Urine WBC (Auto) Urine Creatinine Salicylates Acetaminophen Crossmatch 03/21/19 03/21/19 03/21/19 14:11 18:28 19:32 WBC RBC Hgb Hct MCV MCHC RDW Plt Count Lymph % (Auto) [place] % (Auto) Lymph # [place] # Seg Neutrophils % Seg Neuts % (Manual) Lymphocytes % (Manual) Monocytes % (Manual) Nucleated RBC % Seg Neutrophils # Seg Neutrophils # Man Lymphocytes # (Manual) Monocytes # (Manual) PT INR D-Dimer Heparin Anti-Xa Level POC ABG pH 7.293 L ABG pH POC ABG pCO2 POC ABG pO2 ABG pO2 ABG HCO3 ABG O2 Saturation ABG Base Excess ABG Hemoglobin Oxyhemoglobin Sodium Potassium Chloride Carbon Dioxide BUN Creatinine Glucose POC Glucose 153 H Lactic Acid 2.10 H* Calcium Ionized Calcium Phosphorus Magnesium Iron TIBC Ferritin Total Bilirubin Direct Bilirubin AST ALT Alkaline Phosphatase Total Creatine Kinase CK-MB (CK-2) Troponin T C-Reactive Protein Serum Total Protein Total Protein Albumin Qwmme-2-Uakrvjcru Gbhgb-1-Nkfxkwbcz PEP Interpretation Triglycerides LDL Cholesterol Direct HDL Cholesterol Free T4 PTH Intact Urine WBC (Auto) Urine Creatinine Salicylates Acetaminophen Crossmatch 03/21/19 03/22/19 03/22/19 23:38 05:08 05:51 WBC RBC Hgb Hct MCV MCHC RDW Plt Count Lymph % (Auto) [place] % (Auto) Lymph # [place] # Seg Neutrophils % Seg Neuts % (Manual) Lymphocytes % (Manual) Monocytes % (Manual) Nucleated RBC % Seg Neutrophils # Seg Neutrophils # Man Lymphocytes # (Manual) Monocytes # (Manual) PT INR D-Dimer Heparin Anti-Xa Level POC ABG pH 7.283 L ABG pH POC ABG pCO2 POC ABG pO2 53 L ABG pO2 ABG HCO3 ABG O2 Saturation ABG Base Excess ABG Hemoglobin Oxyhemoglobin Sodium Potassium Chloride Carbon Dioxide BUN Creatinine Glucose POC Glucose 149 H 131 H Lactic Acid Calcium Ionized Calcium Phosphorus Magnesium Iron TIBC Ferritin Total Bilirubin Direct Bilirubin AST ALT Alkaline Phosphatase Total Creatine Kinase CK-MB (CK-2) Troponin T C-Reactive Protein Serum Total Protein Total Protein Albumin Flgug-5-Wrcuvxuux Wancq-8-Jchkreqst PEP Interpretation Triglycerides LDL Cholesterol Direct HDL Cholesterol Free T4 PTH Intact Urine WBC (Auto) Urine Creatinine Salicylates Acetaminophen Crossmatch 03/22/19 03/22/19 03/22/19 08:00 08:00 18:19 WBC 36.7 H RBC Hgb 11.0 L Hct 33.5 L MCV MCHC RDW 15.5 H Plt Count 43 L Lymph % (Auto) [place] % (Auto) Lymph # [place] # Seg Neutrophils % Seg Neuts % (Manual) 87.0 H Lymphocytes % (Manual) 7.0 L Monocytes % (Manual) Nucleated RBC % Seg Neutrophils # Seg Neutrophils # Man 31.9 H Lymphocytes # (Manual) Monocytes # (Manual) PT INR D-Dimer Heparin Anti-Xa Level POC ABG pH ABG pH POC ABG pCO2 46.4 H POC ABG pO2 108 H ABG pO2 ABG HCO3 ABG O2 Saturation ABG Base Excess ABG Hemoglobin Oxyhemoglobin Sodium 132 L Potassium 5.6 H Chloride 89.6 L Carbon Dioxide 20 L BUN 101 H Creatinine 7.4 H Glucose 124 H POC Glucose Lactic Acid Calcium 5.2 L* Ionized Calcium Phosphorus Magnesium Iron TIBC Ferritin Total Bilirubin 2.80 H Direct Bilirubin AST 119 H ALT 86 H Alkaline Phosphatase 245 H Total Creatine Kinase CK-MB (CK-2) Troponin T C-Reactive Protein Serum Total Protein Total Protein 5.6 L Albumin 2.5 L Uzdms-6-Icxlhjnln Rnoax-6-Ikzxocpns PEP Interpretation Triglycerides LDL Cholesterol Direct HDL Cholesterol Free T4 PTH Intact Urine WBC (Auto) Urine Creatinine Salicylates Acetaminophen Crossmatch 03/22/19 03/23/19 03/23/19 20:37 04:49 05:28 WBC 35.9 H RBC Hgb 10.8 L Hct 33.2 L MCV MCHC RDW 15.5 H Plt Count 49 L Lymph % (Auto) [place] % (Auto) Lymph # [place] # Seg Neutrophils % Seg Neuts % (Manual) 81.0 H Lymphocytes % (Manual) 3.5 L Monocytes % (Manual) Nucleated RBC % Seg Neutrophils # Seg Neutrophils # Man 29.1 H Lymphocytes # (Manual) Monocytes # (Manual) 1.4 H PT INR D-Dimer Heparin Anti-Xa Level POC ABG pH 7.296 L ABG pH POC ABG pCO2 46.2 H POC ABG pO2 ABG pO2 ABG HCO3 ABG O2 Saturation ABG Base Excess ABG Hemoglobin Oxyhemoglobin Sodium 129 L Potassium 5.2 H Chloride 91.1 L Carbon Dioxide BUN 91 H Creatinine 6.6 H Glucose 190 H POC Glucose Lactic Acid Calcium 5.3 L* Ionized Calcium Phosphorus Magnesium Iron TIBC Ferritin Total Bilirubin 1.80 H Direct Bilirubin AST 80 H ALT 62 H Alkaline Phosphatase 209 H Total Creatine Kinase 9758 H CK-MB (CK-2) Troponin T C-Reactive Protein Serum Total Protein Total Protein 5.2 L Albumin 2.2 L Frfhb-3-Xqivxjlnt Ssowv-9-Rbehakzkv PEP Interpretation Triglycerides LDL Cholesterol Direct HDL Cholesterol Free T4 PTH Intact Urine WBC (Auto) Urine Creatinine Salicylates Acetaminophen Crossmatch 03/23/19 03/23/19 03/23/19 05:28 05:31 11:33 WBC 29.7 H RBC 3.59 L Hgb 10.1 L Hct 31.1 L MCV MCHC RDW 15.4 H Plt Count 47 L Lymph % (Auto) [place] % (Auto) Lymph # [place] # Seg Neutrophils % Seg Neuts % (Manual) 89.0 H Lymphocytes % (Manual) 6.0 L Monocytes % (Manual) Nucleated RBC % 1.0 H Seg Neutrophils # Seg Neutrophils # Man 26.4 H Lymphocytes # (Manual) Monocytes # (Manual) PT INR D-Dimer Heparin Anti-Xa Level POC ABG pH ABG pH POC ABG pCO2 POC ABG pO2 ABG pO2 ABG HCO3 ABG O2 Saturation ABG Base Excess ABG Hemoglobin Oxyhemoglobin Sodium Potassium Chloride Carbon Dioxide BUN Creatinine Glucose POC Glucose 122 H 113 H Lactic Acid Calcium Ionized Calcium Phosphorus Magnesium Iron TIBC Ferritin Total Bilirubin Direct Bilirubin AST ALT Alkaline Phosphatase Total Creatine Kinase CK-MB (CK-2) Troponin T C-Reactive Protein Serum Total Protein Total Protein Albumin Ykgkf-8-Uozwjxvot Lkvxb-2-Vhvprkxwr PEP Interpretation Triglycerides LDL Cholesterol Direct HDL Cholesterol Free T4 PTH Intact Urine WBC (Auto) Urine Creatinine Salicylates Acetaminophen Crossmatch 03/23/19 03/24/19 03/24/19 17:47 00:00 04:50 WBC 35.0 H RBC Hgb 10.4 L Hct 32.4 L MCV MCHC RDW Plt Count 60 L Lymph % (Auto) [place] % (Auto) Lymph # [place] # Seg Neutrophils % Seg Neuts % (Manual) 93.0 H Lymphocytes % (Manual) 5.0 L Monocytes % (Manual) Nucleated RBC % 7.0 H Seg Neutrophils # Seg Neutrophils # Man 32.6 H Lymphocytes # (Manual) Monocytes # (Manual) PT INR D-Dimer Heparin Anti-Xa Level POC ABG pH ABG pH POC ABG pCO2 POC ABG pO2 ABG pO2 ABG HCO3 ABG O2 Saturation ABG Base Excess ABG Hemoglobin Oxyhemoglobin Sodium Potassium Chloride Carbon Dioxide BUN Creatinine Glucose POC Glucose 111 H 108 H Lactic Acid Calcium Ionized Calcium Phosphorus Magnesium Iron TIBC Ferritin Total Bilirubin Direct Bilirubin AST ALT Alkaline Phosphatase Total Creatine Kinase CK-MB (CK-2) Troponin T C-Reactive Protein Serum Total Protein Total Protein Albumin Yrkwn-4-Onsmzlruo Jddha-1-Uiotmjeqs PEP Interpretation Triglycerides LDL Cholesterol Direct HDL Cholesterol Free T4 PTH Intact Urine WBC (Auto) Urine Creatinine Salicylates Acetaminophen Crossmatch 09/03/24/19 03/24/19 04:50 05:06 12:55 WBC RBC Hgb Hct MCV MCHC RDW Plt Count Lymph % (Auto) [place] % (Auto) Lymph # [place] # Seg Neutrophils % Seg Neuts % (Manual) Lymphocytes % (Manual) Monocytes % (Manual) Nucleated RBC % Seg Neutrophils # Seg Neutrophils # Man Lymphocytes # (Manual) Monocytes # (Manual) PT INR D-Dimer Heparin Anti-Xa Level POC ABG pH ABG pH POC ABG pCO2 POC ABG pO2 ABG pO2 ABG HCO3 ABG O2 Saturation ABG Base Excess ABG Hemoglobin Oxyhemoglobin Sodium 134 L Potassium 5.1 H Chloride 95.3 L Carbon Dioxide 21 L BUN 85 H Creatinine 6.4 H Glucose 109 H POC Glucose 112 H 110 H Lactic Acid Calcium 5.8 L* Ionized Calcium Phosphorus Magnesium Iron TIBC Ferritin Total Bilirubin Direct Bilirubin AST ALT Alkaline Phosphatase Total Creatine Kinase 5747 H CK-MB (CK-2) Troponin T C-Reactive Protein Serum Total Protein Total Protein Albumin Jxlty-4-Jypxzwcfv Eqvyy-0-Dymaogbrf PEP Interpretation Triglycerides LDL Cholesterol Direct HDL Cholesterol Free T4 PTH Intact Urine WBC (Auto) Urine Creatinine Salicylates Acetaminophen Crossmatch 03/24/19 03/25/19 03/25/19 23:29 05:00 05:00 WBC RBC Hgb Hct MCV MCHC RDW Plt Count Lymph % (Auto) [place] % (Auto) Lymph # [place] # Seg Neutrophils % Seg Neuts % (Manual) Lymphocytes % (Manual) Monocytes % (Manual) Nucleated RBC % Seg Neutrophils # Seg Neutrophils # Man Lymphocytes # (Manual) Monocytes # (Manual) PT INR D-Dimer Heparin Anti-Xa Level POC ABG pH ABG pH POC ABG pCO2 POC ABG pO2 ABG pO2 ABG HCO3 ABG O2 Saturation ABG Base Excess ABG Hemoglobin Oxyhemoglobin Sodium 133 L Potassium Chloride 94.0 L Carbon Dioxide 21 L BUN 81 H Creatinine 6.4 H Glucose POC Glucose 109 H Lactic Acid Calcium 5.5 L* Ionized Calcium Phosphorus Magnesium Iron TIBC Ferritin Total Bilirubin Direct Bilirubin AST 80 H ALT Alkaline Phosphatase 202 H Total Creatine Kinase 3589 H CK-MB (CK-2) Troponin T C-Reactive Protein Serum Total Protein Total Protein 5.3 L Albumin 2.4 L Xwfvt-8-Wegphmibv Hyxkp-9-Ctkgfjetg PEP Interpretation Triglycerides LDL Cholesterol Direct HDL Cholesterol Free T4 PTH Intact 329.9 H Urine WBC (Auto) Urine Creatinine Salicylates Acetaminophen Crossmatch 03/25/19 03/25/19 03/26/19 05:00 06:30 04:30 WBC 23.3 H RBC 3.61 L Hgb 10.2 L Hct 31.2 L MCV MCHC RDW Plt Count 57 L Lymph % (Auto) [place] % (Auto) Lymph # [place] # Seg Neutrophils % Seg Neuts % (Manual) 92.0 H Lymphocytes % (Manual) 6.0 L Monocytes % (Manual) Nucleated RBC % Seg Neutrophils # Seg Neutrophils # Man 21.4 H Lymphocytes # (Manual) Monocytes # (Manual) PT INR D-Dimer Heparin Anti-Xa Level POC ABG pH ABG pH 7.326 L POC ABG pCO2 POC ABG pO2 ABG pO2 109.5 H 137.4 H ABG HCO3 18.8 L 18.6 L ABG O2 Saturation ABG Base Excess -4.4 L -6.8 L ABG Hemoglobin 10.1 L 9.9 L Oxyhemoglobin Sodium Potassium Chloride Carbon Dioxide BUN Creatinine Glucose POC Glucose Lactic Acid Calcium Ionized Calcium Phosphorus Magnesium Iron TIBC Ferritin Total Bilirubin Direct Bilirubin AST ALT Alkaline Phosphatase Total Creatine Kinase CK-MB (CK-2) Troponin T C-Reactive Protein Serum Total Protein Total Protein Albumin Toycs-6-Uadwpghmr Idwzi-9-Htojrmrnb PEP Interpretation Triglycerides LDL Cholesterol Direct HDL Cholesterol Free T4 PTH Intact Urine WBC (Auto) Urine Creatinine Salicylates Acetaminophen Crossmatch 03/26/19 03/26/19 03/26/19 23:22 Unknown Unknown WBC 19.5 H RBC 3.44 L Hgb 9.8 L Hct 29.9 L MCV MCHC RDW Plt Count 85 L Lymph % (Auto) [place] % (Auto) Lymph # [place] # Seg Neutrophils % Seg Neuts % (Manual) 95.0 H Lymphocytes % (Manual) 3.0 L Monocytes % (Manual) Nucleated RBC % Seg Neutrophils # Seg Neutrophils # Man 18.5 H Lymphocytes # (Manual) 0.6 L Monocytes # (Manual) PT INR D-Dimer Heparin Anti-Xa Level POC ABG pH ABG pH POC ABG pCO2 POC ABG pO2 ABG pO2 ABG HCO3 ABG O2 Saturation ABG Base Excess ABG Hemoglobin Oxyhemoglobin Sodium 135 L Potassium 5.2 H D Chloride 92.2 L Carbon Dioxide 18 L BUN 109 H Creatinine 8.5 H Glucose 117 H POC Glucose 69 L Lactic Acid Calcium 4.5 L* D Ionized Calcium Phosphorus Magnesium Iron TIBC Ferritin Total Bilirubin Direct Bilirubin AST ALT Alkaline Phosphatase Total Creatine Kinase 4527 H CK-MB (CK-2) Troponin T C-Reactive Protein Serum Total Protein Total Protein Albumin Hiali-0-Jggphtrdo Tlfed-1-Lafyfqmzq PEP Interpretation Triglycerides LDL Cholesterol Direct HDL Cholesterol Free T4 PTH Intact Urine WBC (Auto) Urine Creatinine Salicylates Acetaminophen Crossmatch 03/27/19 03/27/19 03/27/19 04:30 04:30 09:00 WBC 19.2 H RBC 3.42 L Hgb 9.9 L Hct 30.0 L MCV MCHC RDW Plt Count 84 L Lymph % (Auto) [place] % (Auto) Lymph # [place] # Seg Neutrophils % Seg Neuts % (Manual) Lymphocytes % (Manual) Monocytes % (Manual) Nucleated RBC % Seg Neutrophils # Seg Neutrophils # Man Lymphocytes # (Manual) Monocytes # (Manual) PT INR D-Dimer Heparin Anti-Xa Level POC ABG pH ABG pH POC ABG pCO2 POC ABG pO2 ABG pO2 ABG HCO3 ABG O2 Saturation ABG Base Excess ABG Hemoglobin Oxyhemoglobin Sodium 135 L Potassium Chloride 93.5 L Carbon Dioxide BUN 84 H Creatinine 7.1 H Glucose POC Glucose Lactic Acid Calcium 5.0 L* Ionized Calcium Phosphorus Magnesium Iron TIBC Ferritin Total Bilirubin Direct Bilirubin AST 78 H ALT Alkaline Phosphatase 135 H Total Creatine Kinase 4677 H CK-MB (CK-2) Troponin T C-Reactive Protein Serum Total Protein Total Protein 4.8 L Albumin 2.3 L Cpitl-1-Wcrbvyhgz Zzuyk-7-Otzakwnko PEP Interpretation Triglycerides 409 H LDL Cholesterol Direct HDL Cholesterol Free T4 PTH Intact Urine WBC (Auto) Urine Creatinine Salicylates Acetaminophen Crossmatch 03/27/19 03/27/19 03/27/19 12:37 14:15 14:15 WBC RBC Hgb 9.7 L Hct 29.5 L MCV MCHC RDW Plt Count 87 L Lymph % (Auto) [place] % (Auto) Lymph # [place] # Seg Neutrophils % Seg Neuts % (Manual) Lymphocytes % (Manual) Monocytes % (Manual) Nucleated RBC % Seg Neutrophils # Seg Neutrophils # Man Lymphocytes # (Manual) Monocytes # (Manual) PT 15.9 H INR 1.30 H D-Dimer Heparin Anti-Xa Level POC ABG pH ABG pH POC ABG pCO2 POC ABG pO2 ABG pO2 ABG HCO3 ABG O2 Saturation ABG Base Excess ABG Hemoglobin Oxyhemoglobin Sodium Potassium Chloride Carbon Dioxide BUN Creatinine Glucose POC Glucose 129 H Lactic Acid Calcium Ionized Calcium Phosphorus Magnesium Iron TIBC Ferritin Total Bilirubin Direct Bilirubin AST ALT Alkaline Phosphatase Total Creatine Kinase CK-MB (CK-2) Troponin T C-Reactive Protein Serum Total Protein Total Protein Albumin Psjfd-0-Hpefiinkt Rloqa-1-Cjnsnihcx PEP Interpretation Triglycerides LDL Cholesterol Direct HDL Cholesterol Free T4 PTH Intact Urine WBC (Auto) Urine Creatinine Salicylates Acetaminophen Crossmatch 03/27/19 03/27/19 03/27/19 18:00 19:22 19:23 WBC RBC Hgb Hct MCV MCHC RDW Plt Count Lymph % (Auto) [place] % (Auto) Lymph # [place] # Seg Neutrophils % Seg Neuts % (Manual) Lymphocytes % (Manual) Monocytes % (Manual) Nucleated RBC % Seg Neutrophils # Seg Neutrophils # Man Lymphocytes # (Manual) Monocytes # (Manual) PT INR D-Dimer Heparin Anti-Xa Level < 0.10 L POC ABG pH ABG pH POC ABG pCO2 POC ABG pO2 ABG pO2 ABG HCO3 ABG O2 Saturation ABG Base Excess ABG Hemoglobin Oxyhemoglobin Sodium Potassium Chloride Carbon Dioxide BUN Creatinine Glucose POC Glucose 121 H Lactic Acid Calcium Ionized Calcium Phosphorus Magnesium Iron TIBC Ferritin Total Bilirubin Direct Bilirubin AST ALT Alkaline Phosphatase Total Creatine Kinase 4517 H CK-MB (CK-2) Troponin T C-Reactive Protein Serum Total Protein Total Protein Albumin Kzqmz-1-Bcuqxkjxu Kqsdk-2-Ltkgjaqkt PEP Interpretation Triglycerides LDL Cholesterol Direct HDL Cholesterol Free T4 PTH Intact Urine WBC (Auto) Urine Creatinine Salicylates Acetaminophen Crossmatch 03/27/19 03/27/19 03/28/19 22:10 23:52 03:49 WBC RBC Hgb Hct MCV MCHC RDW Plt Count Lymph % (Auto) [place] % (Auto) Lymph # [place] # Seg Neutrophils % Seg Neuts % (Manual) Lymphocytes % (Manual) Monocytes % (Manual) Nucleated RBC % Seg Neutrophils # Seg Neutrophils # Man Lymphocytes # (Manual) Monocytes # (Manual) PT INR D-Dimer Heparin Anti-Xa Level POC ABG pH 7.338 L ABG pH POC ABG pCO2 33.1 L POC ABG pO2 ABG pO2 ABG HCO3 ABG O2 Saturation ABG Base Excess ABG Hemoglobin Oxyhemoglobin Sodium Potassium Chloride Carbon Dioxide BUN Creatinine Glucose POC Glucose 113 H 117 H Lactic Acid Calcium Ionized Calcium Phosphorus Magnesium Iron TIBC Ferritin Total Bilirubin Direct Bilirubin AST ALT Alkaline Phosphatase Total Creatine Kinase CK-MB (CK-2) Troponin T C-Reactive Protein Serum Total Protein Total Protein Albumin Uvchl-6-Cleewmemt Jqfrd-3-Rnkknyzyx PEP Interpretation Triglycerides LDL Cholesterol Direct HDL Cholesterol Free T4 PTH Intact Urine WBC (Auto) Urine Creatinine Salicylates Acetaminophen Crossmatch 03/28/19 03/28/19 03/28/19 05:13 05:13 06:18 WBC RBC Hgb Hct MCV MCHC RDW Plt Count Lymph % (Auto) [place] % (Auto) Lymph # [place] # Seg Neutrophils % Seg Neuts % (Manual) Lymphocytes % (Manual) Monocytes % (Manual) Nucleated RBC % Seg Neutrophils # Seg Neutrophils # Man Lymphocytes # (Manual) Monocytes # (Manual) PT INR D-Dimer Heparin Anti-Xa Level 0.23 L POC ABG pH ABG pH POC ABG pCO2 POC ABG pO2 ABG pO2 ABG HCO3 ABG O2 Saturation ABG Base Excess ABG Hemoglobin Oxyhemoglobin Sodium 135 L Potassium 5.5 H D Chloride 95.1 L Carbon Dioxide 16 L D BUN 129 H Creatinine 9.3 H Glucose 158 H POC Glucose 202 H Lactic Acid Calcium 4.0 L* D Ionized Calcium Phosphorus 12.40 H Magnesium Iron TIBC Ferritin Total Bilirubin Direct Bilirubin AST ALT Alkaline Phosphatase Total Creatine Kinase 4266 H CK-MB (CK-2) Troponin T C-Reactive Protein Serum Total Protein Total Protein Albumin Zfjws-9-Mpfwcwtgq Uitfe-0-Mmfbjnkjr PEP Interpretation Triglycerides LDL Cholesterol Direct HDL Cholesterol Free T4 PTH Intact Urine WBC (Auto) Urine Creatinine Salicylates Acetaminophen Crossmatch 03/28/19 03/28/19 03/28/19 08:25 10:00 12:00 WBC RBC Hgb 4.9 L* D Hct 15.4 L* D MCV MCHC RDW Plt Count Lymph % (Auto) [place] % (Auto) Lymph # [place] # Seg Neutrophils % Seg Neuts % (Manual) Lymphocytes % (Manual) Monocytes % (Manual) Nucleated RBC % Seg Neutrophils # Seg Neutrophils # Man Lymphocytes # (Manual) Monocytes # (Manual) PT 17.9 H INR 1.52 H D-Dimer 4845.98 H Heparin Anti-Xa Level POC ABG pH ABG pH POC ABG pCO2 POC ABG pO2 ABG pO2 ABG HCO3 ABG O2 Saturation ABG Base Excess ABG Hemoglobin Oxyhemoglobin Sodium Potassium Chloride Carbon Dioxide BUN Creatinine Glucose POC Glucose Lactic Acid Calcium Ionized Calcium Phosphorus Magnesium Iron TIBC Ferritin Total Bilirubin Direct Bilirubin AST ALT Alkaline Phosphatase Total Creatine Kinase CK-MB (CK-2) Troponin T C-Reactive Protein Serum Total Protein Total Protein Albumin [place]-2-Fzewkktbl Fqkwl-8-Mypahpdbo PEP Interpretation Triglycerides LDL Cholesterol Direct HDL Cholesterol Free T4 PTH Intact Urine WBC (Auto) Urine Creatinine Salicylates Acetaminophen Crossmatch See Detail 03/28/19 03/28/19 03/28/19 12:28 14:10 17:43 WBC RBC Hgb 5.9 L* Hct 18.3 L* MCV MCHC RDW Plt Count Lymph % (Auto) [place] % (Auto) Lymph # [place] # Seg Neutrophils % Seg Neuts % (Manual) Lymphocytes % (Manual) Monocytes % (Manual) Nucleated RBC % Seg Neutrophils # Seg Neutrophils # Man Lymphocytes # (Manual) Monocytes # (Manual) PT INR D-Dimer Heparin Anti-Xa Level POC ABG pH ABG pH POC ABG pCO2 POC ABG pO2 ABG pO2 ABG HCO3 ABG O2 Saturation ABG Base Excess ABG Hemoglobin Oxyhemoglobin Sodium Potassium Chloride Carbon Dioxide BUN Creatinine Glucose POC Glucose 153 H 159 H Lactic Acid Calcium Ionized Calcium Phosphorus Magnesium Iron TIBC Ferritin Total Bilirubin Direct Bilirubin AST ALT Alkaline Phosphatase Total Creatine Kinase CK-MB (CK-2) Troponin T C-Reactive Protein Serum Total Protein Total Protein Albumin [place]-9-Ezgtpmmbw Sgann-5-Kgvktkvnx PEP Interpretation Triglycerides LDL Cholesterol Direct HDL Cholesterol Free T4 PTH Intact Urine WBC (Auto) Urine Creatinine Salicylates Acetaminophen Crossmatch 03/28/19 03/28/19 03/28/19 18:10 Unknown 23:59 WBC 24.8 H RBC 3.42 L Hgb 10.2 L D Hct 31.1 L D MCV MCHC RDW 15.4 H Plt Count 54 L Lymph % (Auto) [place] % (Auto) Lymph # [place] # Seg Neutrophils % Seg Neuts % (Manual) 91.0 H Lymphocytes % (Manual) 8.0 L Monocytes % (Manual) Nucleated RBC % Seg Neutrophils # Seg Neutrophils # Man 22.6 H Lymphocytes # (Manual) Monocytes # (Manual) PT INR D-Dimer Heparin Anti-Xa Level POC ABG pH ABG pH POC ABG pCO2 POC ABG pO2 ABG pO2 ABG HCO3 ABG O2 Saturation ABG Base Excess ABG Hemoglobin Oxyhemoglobin Sodium Potassium 5.7 H Chloride Carbon Dioxide BUN Creatinine Glucose POC Glucose 107 H Lactic Acid Calcium Ionized Calcium Phosphorus Magnesium Iron TIBC Ferritin Total Bilirubin Direct Bilirubin AST ALT Alkaline Phosphatase Total Creatine Kinase CK-MB (CK-2) Troponin T C-Reactive Protein Serum Total Protein Total Protein Albumin Jruoq-1-Dnjbaygdp Avqwa-0-Olopyvvft PEP Interpretation Triglycerides LDL Cholesterol Direct HDL Cholesterol Free T4 PTH Intact Urine WBC (Auto) Urine Creatinine Salicylates Acetaminophen Crossmatch 03/29/19 03/29/19 03/29/19 04:29 05:46 06:22 WBC RBC Hgb 8.6 L Hct 25.7 L MCV MCHC RDW Plt Count 93 L Lymph % (Auto) [place] % (Auto) Lymph # [place] # Seg Neutrophils % Seg Neuts % (Manual) Lymphocytes % (Manual) Monocytes % (Manual) Nucleated RBC % Seg Neutrophils # Seg Neutrophils # Man Lymphocytes # (Manual) Monocytes # (Manual) PT INR D-Dimer Heparin Anti-Xa Level POC ABG pH ABG pH POC ABG pCO2 32.2 L POC ABG pO2 ABG pO2 ABG HCO3 ABG O2 Saturation ABG Base Excess ABG Hemoglobin Oxyhemoglobin Sodium Potassium Chloride Carbon Dioxide BUN Creatinine Glucose POC Glucose 113 H Lactic Acid Calcium Ionized Calcium Phosphorus Magnesium Iron TIBC Ferritin Total Bilirubin Direct Bilirubin AST ALT Alkaline Phosphatase Total Creatine Kinase CK-MB (CK-2) Troponin T C-Reactive Protein Serum Total Protein Total Protein Albumin Awqom-2-Qdprqfvjb Oekdx-6-Jqqtgebyi PEP Interpretation Triglycerides LDL Cholesterol Direct HDL Cholesterol Free T4 PTH Intact Urine WBC (Auto) Urine Creatinine Salicylates Acetaminophen Crossmatch 03/29/19 03/29/19 03/29/19 06:22 06:22 06:22 WBC 23.2 H RBC 2.91 L Hgb 8.6 L Hct 25.8 L MCV MCHC RDW Plt Count 91 L Lymph % (Auto) [place] % (Auto) Lymph # [place] # Seg Neutrophils % Seg Neuts % (Manual) Lymphocytes % (Manual) Monocytes % (Manual) Nucleated RBC % Seg Neutrophils # Seg Neutrophils # Man Lymphocytes # (Manual) Monocytes # (Manual) PT INR D-Dimer Heparin Anti-Xa Level POC ABG pH ABG pH POC ABG pCO2 POC ABG pO2 ABG pO2 ABG HCO3 ABG O2 Saturation ABG Base Excess ABG Hemoglobin Oxyhemoglobin Sodium 133 L Potassium Chloride 93.8 L Carbon Dioxide 18 L BUN 109 H Creatinine 7.4 H Glucose 124 H POC Glucose Lactic Acid Calcium 4.6 L* Ionized Calcium Phosphorus Magnesium Iron TIBC Ferritin Total Bilirubin Direct Bilirubin AST ALT Alkaline Phosphatase Total Creatine Kinase 3401 H CK-MB (CK-2) Troponin T C-Reactive Protein Serum Total Protein Total Protein Albumin Krlyo-2-Dbxzqqkzd Deatb-4-Zlkkfykis PEP Interpretation Triglycerides 309 H LDL Cholesterol Direct HDL Cholesterol Free T4 PTH Intact Urine WBC (Auto) Urine Creatinine Salicylates Acetaminophen Crossmatch 03/29/19 03/29/19 03/29/19 11:48 11:48 18:24 WBC RBC Hgb 7.8 L Hct 23.2 L MCV MCHC RDW Plt Count Lymph % (Auto) [place] % (Auto) Lymph # [place] # Seg Neutrophils % Seg Neuts % (Manual) Lymphocytes % (Manual) Monocytes % (Manual) Nucleated RBC % Seg Neutrophils # Seg Neutrophils # Man Lymphocytes # (Manual) Monocytes # (Manual) PT 15.3 H INR 1.24 H D-Dimer Heparin Anti-Xa Level POC ABG pH ABG pH POC ABG pCO2 POC ABG pO2 ABG pO2 ABG HCO3 ABG O2 Saturation ABG Base Excess ABG Hemoglobin Oxyhemoglobin Sodium Potassium Chloride Carbon Dioxide BUN Creatinine Glucose POC Glucose 122 H Lactic Acid Calcium Ionized Calcium Phosphorus Magnesium Iron TIBC Ferritin Total Bilirubin Direct Bilirubin AST ALT Alkaline Phosphatase Total Creatine Kinase CK-MB (CK-2) Troponin T C-Reactive Protein Serum Total Protein Total Protein Albumin Wajvv-5-Rnngwzxpi Soenx-9-Kenhruldj PEP Interpretation Triglycerides LDL Cholesterol Direct HDL Cholesterol Free T4 PTH Intact Urine WBC (Auto) Urine Creatinine Salicylates Acetaminophen Crossmatch 03/30/19 03/30/19 03/30/19 00:40 04:31 05:04 WBC RBC Hgb 7.6 L Hct 23.0 L MCV MCHC RDW Plt Count Lymph % (Auto) [place] % (Auto) Lymph # [place] # Seg Neutrophils % Seg Neuts % (Manual) Lymphocytes % (Manual) Monocytes % (Manual) Nucleated RBC % Seg Neutrophils # Seg Neutrophils # Man Lymphocytes # (Manual) Monocytes # (Manual) PT INR D-Dimer Heparin Anti-Xa Level POC ABG pH 7.346 L ABG pH POC ABG pCO2 POC ABG pO2 62 L ABG pO2 ABG HCO3 ABG O2 Saturation ABG Base Excess ABG Hemoglobin Oxyhemoglobin Sodium Potassium Chloride Carbon Dioxide BUN 79 H Creatinine 6.4 H Glucose POC Glucose Lactic Acid Calcium 6.1 L D Ionized Calcium Phosphorus Magnesium Iron TIBC Ferritin Total Bilirubin Direct Bilirubin AST ALT Alkaline Phosphatase Total Creatine Kinase CK-MB (CK-2) Troponin T C-Reactive Protein Serum Total Protein Total Protein Albumin Erquy-5-Zvyugbgtb Fsiak-7-Fvbunhlwq PEP Interpretation Triglycerides LDL Cholesterol Direct HDL Cholesterol Free T4 PTH Intact Urine WBC (Auto) Urine Creatinine Salicylates Acetaminophen Crossmatch 03/30/19 03/30/19 03/30/19 08:45 12:09 22:43 WBC 14.3 H RBC 2.33 L Hgb 7.0 L 7.4 L Hct 21.0 L 22.3 L MCV MCHC RDW 15.6 H Plt Count 135 L Lymph % (Auto) [place] % (Auto) Lymph # [place] # Seg Neutrophils % Seg Neuts % (Manual) Lymphocytes % (Manual) Monocytes % (Manual) Nucleated RBC % Seg Neutrophils # Seg Neutrophils # Man Lymphocytes # (Manual) Monocytes # (Manual) PT INR D-Dimer Heparin Anti-Xa Level POC ABG pH ABG pH POC ABG pCO2 POC ABG pO2 ABG pO2 ABG HCO3 ABG O2 Saturation ABG Base Excess ABG Hemoglobin Oxyhemoglobin Sodium Potassium Chloride Carbon Dioxide BUN Creatinine Glucose POC Glucose Lactic Acid Calcium Ionized Calcium 3.7 L Phosphorus Magnesium Iron TIBC Ferritin Total Bilirubin Direct Bilirubin AST ALT Alkaline Phosphatase Total Creatine Kinase CK-MB (CK-2) Troponin T C-Reactive Protein Serum Total Protein Total Protein Albumin [place]ae-0-Icevpyhjk Lcehe-5-Kvvcirpfa PEP Interpretation Triglycerides LDL Cholesterol Direct HDL Cholesterol Free T4 PTH Intact Urine WBC (Auto) Urine Creatinine Salicylates Acetaminophen Crossmatch 03/30/19 03/30/19 03/31/19 23:38 Unknown 04:44 WBC 11.5 H RBC 2.40 L Hgb 7.3 L Hct 21.9 L MCV MCHC RDW 15.4 H Plt Count Lymph % (Auto) 10.6 L [place] % (Auto) Lymph # [place] # Seg Neutrophils % 81.7 H Seg Neuts % (Manual) Lymphocytes % (Manual) Monocytes % (Manual) Nucleated RBC % Seg Neutrophils # 9.4 H Seg Neutrophils # Man Lymphocytes # (Manual) Monocytes # (Manual) PT INR D-Dimer Heparin Anti-Xa Level POC ABG pH ABG pH POC ABG pCO2 POC ABG pO2 ABG pO2 ABG HCO3 ABG O2 Saturation ABG Base Excess ABG Hemoglobin Oxyhemoglobin Sodium Potassium Chloride Carbon Dioxide BUN Creatinine Glucose POC Glucose 155 H Lactic Acid Calcium Ionized Calcium Phosphorus Magnesium Iron TIBC Ferritin Total Bilirubin Direct Bilirubin 0.4 H AST 63 H ALT Alkaline Phosphatase Total Creatine Kinase CK-MB (CK-2) Troponin T C-Reactive Protein Serum Total Protein Total Protein 4.9 L Albumin 2.2 L Tjfov-3-Pdbbmxujx Tonun-9-Rjozowfem PEP Interpretation Triglycerides LDL Cholesterol Direct HDL Cholesterol Free T4 PTH Intact Urine WBC (Auto) Urine Creatinine Salicylates Acetaminophen Crossmatch 03/31/19 03/31/19 03/31/19 04:44 05:44 08:20 WBC RBC Hgb Hct MCV MCHC RDW Plt Count Lymph % (Auto) [place] % (Auto) Lymph # [place] # Seg Neutrophils % Seg Neuts % (Manual) Lymphocytes % (Manual) Monocytes % (Manual) Nucleated RBC % Seg Neutrophils # Seg Neutrophils # Man Lymphocytes # (Manual) Monocytes # (Manual) PT INR D-Dimer Heparin Anti-Xa Level POC ABG pH ABG pH POC ABG pCO2 53.5 H POC ABG pO2 62 L ABG pO2 ABG HCO3 ABG O2 Saturation ABG Base Excess ABG Hemoglobin Oxyhemoglobin Sodium 135 L Potassium Chloride 96.7 L Carbon Dioxide 19 L BUN 94 H Creatinine 7.8 H Glucose POC Glucose Lactic Acid Calcium 5.3 L* Ionized Calcium Phosphorus 8.20 H Magnesium Iron TIBC Ferritin Total Bilirubin Direct Bilirubin 0.4 H AST 60 H ALT Alkaline Phosphatase Total Creatine Kinase CK-MB (CK-2) Troponin T C-Reactive Protein Serum Total Protein Total Protein 4.8 L Albumin 2.1 L Vinss-4-Jcmqxkgum Jbixf-0-Htlstphdd PEP Interpretation Triglycerides LDL Cholesterol Direct HDL Cholesterol Free T4 PTH Intact Urine WBC (Auto) Urine Creatinine Salicylates Acetaminophen Crossmatch 03/31/19 04/01/19 04/01/19 22:14 04:27 04:27 WBC RBC 2.60 L Hgb 8.0 L Hct 24.1 L MCV MCHC RDW 15.7 H Plt Count Lymph % (Auto) 7.9 L [place] % (Auto) Lymph # 0.7 L [place] # Seg Neutrophils % 83.6 H Seg Neuts % (Manual) Lymphocytes % (Manual) Monocytes % (Manual) Nucleated RBC % Seg Neutrophils # Seg Neutrophils # Man Lymphocytes # (Manual) Monocytes # (Manual) PT INR D-Dimer Heparin Anti-Xa Level POC ABG pH 7.286 L ABG pH POC ABG pCO2 54.7 H POC ABG pO2 179 H ABG pO2 ABG HCO3 ABG O2 Saturation ABG Base Excess ABG Hemoglobin Oxyhemoglobin Sodium Potassium Chloride Carbon Dioxide BUN 68 H Creatinine 6.6 H Glucose POC Glucose Lactic Acid Calcium 6.5 L D Ionized Calcium Phosphorus 7.30 H Magnesium Iron TIBC Ferritin Total Bilirubin Direct Bilirubin AST ALT Alkaline Phosphatase Total Creatine Kinase 1652 H CK-MB (CK-2) Troponin T C-Reactive Protein Serum Total Protein Total Protein Albumin Wutfq-6-Ojflexgtk Zkouc-5-Ivoaxqkcn PEP Interpretation Triglycerides LDL Cholesterol Direct HDL Cholesterol Free T4 PTH Intact Urine WBC (Auto) Urine Creatinine Salicylates Acetaminophen Crossmatch 04/01/19 04/01/19 04/01/19 05:14 05:37 18:37 WBC RBC Hgb Hct MCV MCHC RDW Plt Count Lymph % (Auto) [place] % (Auto) Lymph # [place] # Seg Neutrophils % Seg Neuts % (Manual) Lymphocytes % (Manual) Monocytes % (Manual) Nucleated RBC % Seg Neutrophils # Seg Neutrophils # Man Lymphocytes # (Manual) Monocytes # (Manual) PT INR D-Dimer Heparin Anti-Xa Level POC ABG pH 7.283 L ABG pH POC ABG pCO2 53.4 H POC ABG pO2 241 H ABG pO2 ABG HCO3 ABG O2 Saturation ABG Base Excess ABG Hemoglobin Oxyhemoglobin Sodium Potassium Chloride Carbon Dioxide BUN Creatinine Glucose POC Glucose 111 H 119 H Lactic Acid Calcium Ionized Calcium Phosphorus Magnesium Iron TIBC Ferritin Total Bilirubin Direct Bilirubin AST ALT Alkaline Phosphatase Total Creatine Kinase CK-MB (CK-2) Troponin T C-Reactive Protein Serum Total Protein Total Protein Albumin Fgxbg-0-Tqergbwxi Heqsh-2-Edwmgfznv PEP Interpretation Triglycerides LDL Cholesterol Direct HDL Cholesterol Free T4 PTH Intact Urine WBC (Auto) Urine Creatinine Salicylates Acetaminophen Crossmatch 04/01/19 04/02/19 04/02/19 21:28 04:40 05:03 WBC RBC 2.36 L Hgb 7.2 L Hct 21.9 L MCV MCHC RDW 16.0 H Plt Count Lymph % (Auto) 10.8 L [place] % (Auto) Lymph # 0.8 L [place] # Seg Neutrophils % 80.3 H Seg Neuts % (Manual) Lymphocytes % (Manual) Monocytes % (Manual) Nucleated RBC % Seg Neutrophils # Seg Neutrophils # Man Lymphocytes # (Manual) Monocytes # (Manual) PT INR D-Dimer Heparin Anti-Xa Level POC ABG pH 7.299 L 7.300 L ABG pH POC ABG pCO2 48.2 H 45.2 H POC ABG pO2 133 H 107 H ABG pO2 ABG HCO3 ABG O2 Saturation ABG Base Excess ABG Hemoglobin Oxyhemoglobin Sodium Potassium Chloride Carbon Dioxide BUN Creatinine Glucose POC Glucose Lactic Acid Calcium Ionized Calcium Phosphorus Magnesium Iron TIBC Ferritin Total Bilirubin Direct Bilirubin AST ALT Alkaline Phosphatase Total Creatine Kinase CK-MB (CK-2) Troponin T C-Reactive Protein Serum Total Protein Total Protein Albumin Zwptz-3-Emoqyqgui Skroq-2-Ixjwjteht PEP Interpretation Triglycerides LDL Cholesterol Direct HDL Cholesterol Free T4 PTH Intact Urine WBC (Auto) Urine Creatinine Salicylates Acetaminophen Crossmatch 04/02/19 04/02/19 04/02/19 05:03 05:03 12:15 WBC RBC Hgb 7.4 L Hct 22.6 L MCV MCHC RDW Plt Count Lymph % (Auto) [place] % (Auto) Lymph # [place] # Seg Neutrophils % Seg Neuts % (Manual) Lymphocytes % (Manual) Monocytes % (Manual) Nucleated RBC % Seg Neutrophils # Seg Neutrophils # Man Lymphocytes # (Manual) Monocytes # (Manual) PT INR D-Dimer Heparin Anti-Xa Level POC ABG pH ABG pH POC ABG pCO2 POC ABG pO2 ABG pO2 ABG HCO3 ABG O2 Saturation ABG Base Excess ABG Hemoglobin Oxyhemoglobin Sodium 136 L Potassium Chloride 97.8 L Carbon Dioxide 18 L BUN 82 H Creatinine 8.2 H Glucose POC Glucose Lactic Acid Calcium 6.7 L Ionized Calcium Phosphorus 7.50 H Magnesium Iron 26 L TIBC 138 L Ferritin 607.0 H Total Bilirubin Direct Bilirubin AST ALT Alkaline Phosphatase Total Creatine Kinase CK-MB (CK-2) Troponin T C-Reactive Protein Serum Total Protein Total Protein Albumin Qwurt-2-Toifqetgv Wderw-7-Qiythcags PEP Interpretation Triglycerides LDL Cholesterol Direct HDL Cholesterol Free T4 PTH Intact Urine WBC (Auto) Urine Creatinine Salicylates Acetaminophen Crossmatch 04/02/19 04/02/19 04/03/19 16:34 17:14 04:18 WBC RBC Hgb Hct MCV MCHC RDW Plt Count Lymph % (Auto) [place] % (Auto) Lymph # [place] # Seg Neutrophils % Seg Neuts % (Manual) Lymphocytes % (Manual) Monocytes % (Manual) Nucleated RBC % Seg Neutrophils # Seg Neutrophils # Man Lymphocytes # (Manual) Monocytes # (Manual) PT INR D-Dimer Heparin Anti-Xa Level POC ABG pH ABG pH POC ABG pCO2 POC ABG pO2 146 H ABG pO2 ABG HCO3 ABG O2 Saturation ABG Base Excess ABG Hemoglobin Oxyhemoglobin Sodium Potassium Chloride Carbon Dioxide BUN Creatinine Glucose POC Glucose 108 H Lactic Acid Calcium Ionized Calcium Phosphorus Magnesium Iron TIBC Ferritin Total Bilirubin Direct Bilirubin AST ALT Alkaline Phosphatase Total Creatine Kinase CK-MB (CK-2) Troponin T C-Reactive Protein Serum Total Protein Total Protein Albumin Wsieq-9-Iouhjaoqn Madqn-4-Rvpqngdct PEP Interpretation Triglycerides LDL Cholesterol Direct HDL Cholesterol Free T4 PTH Intact Urine WBC (Auto) Urine Creatinine Salicylates Acetaminophen Crossmatch See Detail 04/03/19 04/03/19 04/03/19 04:25 08:30 18:24 WBC RBC 2.40 L Hgb 7.3 L Hct 21.9 L MCV MCHC RDW Plt Count Lymph % (Auto) [place] % (Auto) 7.7 H Lymph # 0.9 L [place] # Seg Neutrophils % 74.6 H Seg Neuts % (Manual) Lymphocytes % (Manual) Monocytes % (Manual) Nucleated RBC % Seg Neutrophils # Seg Neutrophils # Man Lymphocytes # (Manual) Monocytes # (Manual) PT INR D-Dimer Heparin Anti-Xa Level POC ABG pH ABG pH POC ABG pCO2 POC ABG pO2 ABG pO2 ABG HCO3 ABG O2 Saturation ABG Base Excess ABG Hemoglobin Oxyhemoglobin Sodium 136 L Potassium Chloride 97.0 L Carbon Dioxide BUN 58 H Creatinine 7.3 H Glucose POC Glucose 106 H Lactic Acid Calcium 7.5 L Ionized Calcium Phosphorus 5.80 H D Magnesium Iron TIBC Ferritin Total Bilirubin Direct Bilirubin AST ALT Alkaline Phosphatase Total Creatine Kinase CK-MB (CK-2) Troponin T C-Reactive Protein Serum Total Protein Total Protein Albumin Obexx-3-Amxhxqcay Qpyvq-3-Txufcqbqe PEP Interpretation Triglycerides LDL Cholesterol Direct HDL Cholesterol Free T4 PTH Intact Urine WBC (Auto) Urine Creatinine Salicylates Acetaminophen Crossmatch 04/03/19 04/04/19 04/04/19 23:43 04:47 04:47 WBC RBC 2.72 L Hgb 8.3 L Hct 24.7 L MCV MCHC RDW 15.6 H Plt Count Lymph % (Auto) [place] % (Auto) 10.1 H Lymph # 0.8 L [place] # Seg Neutrophils % 71.4 H Seg Neuts % (Manual) Lymphocytes % (Manual) Monocytes % (Manual) Nucleated RBC % Seg Neutrophils # Seg Neutrophils # Man Lymphocytes # (Manual) Monocytes # (Manual) PT INR D-Dimer Heparin Anti-Xa Level POC ABG pH ABG pH POC ABG pCO2 POC ABG pO2 ABG pO2 123.8 H ABG HCO3 ABG O2 Saturation ABG Base Excess -3.0 L ABG Hemoglobin 7.9 L Oxyhemoglobin Sodium 134 L Potassium Chloride 97.9 L Carbon Dioxide BUN 64 H Creatinine 8.1 H Glucose POC Glucose Lactic Acid Calcium 7.2 L Ionized Calcium Phosphorus Magnesium Iron TIBC Ferritin Total Bilirubin Direct Bilirubin AST ALT Alkaline Phosphatase Total Creatine Kinase CK-MB (CK-2) Troponin T C-Reactive Protein Serum Total Protein Total Protein Albumin Ksfig-5-Ajpwxdcnb Vbvas-2-Dxbsxxxhf PEP Interpretation Triglycerides LDL Cholesterol Direct HDL Cholesterol Free T4 PTH Intact Urine WBC (Auto) Urine Creatinine Salicylates Acetaminophen Crossmatch 04/04/19 04/04/19 04/04/19 06:07 13:40 18:18 WBC RBC Hgb Hct MCV MCHC RDW Plt Count Lymph % (Auto) [place] % (Auto) Lymph # [place] # Seg Neutrophils % Seg Neuts % (Manual) Lymphocytes % (Manual) Monocytes % (Manual) Nucleated RBC % Seg Neutrophils # Seg Neutrophils # Man Lymphocytes # (Manual) Monocytes # (Manual) PT INR D-Dimer Heparin Anti-Xa Level POC ABG pH ABG pH POC ABG pCO2 POC ABG pO2 ABG pO2 95.9 H ABG HCO3 ABG O2 Saturation ABG Base Excess -3.0 L ABG Hemoglobin 8.5 L Oxyhemoglobin Sodium Potassium Chloride Carbon Dioxide BUN Creatinine Glucose POC Glucose 107 H 107 H Lactic Acid Calcium Ionized Calcium Phosphorus Magnesium Iron TIBC Ferritin Total Bilirubin Direct Bilirubin AST ALT Alkaline Phosphatase Total Creatine Kinase CK-MB (CK-2) Troponin T C-Reactive Protein Serum Total Protein Total Protein Albumin Nufry-0-Ooltinybm Bhlnh-6-Sbqdbqdxw PEP Interpretation Triglycerides LDL Cholesterol Direct HDL Cholesterol Free T4 PTH Intact Urine WBC (Auto) Urine Creatinine Salicylates Acetaminophen Crossmatch 04/04/19 04/05/19 04/05/19 21:22 04:09 04:09 WBC RBC 2.76 L Hgb 8.4 L Hct 25.4 L MCV MCHC RDW 15.8 H Plt Count 133 L Lymph % (Auto) [place] % (Auto) 9.6 H Lymph # 0.7 L [place] # Seg Neutrophils % 72.6 H Seg Neuts % (Manual) Lymphocytes % (Manual) Monocytes % (Manual) Nucleated RBC % Seg Neutrophils # Seg Neutrophils # Man Lymphocytes # (Manual) Monocytes # (Manual) PT INR D-Dimer Heparin Anti-Xa Level POC ABG pH ABG pH POC ABG pCO2 47.2 H POC ABG pO2 137 H ABG pO2 ABG HCO3 ABG O2 Saturation ABG Base Excess ABG Hemoglobin Oxyhemoglobin Sodium 136 L Potassium Chloride Carbon Dioxide BUN 46 H Creatinine 6.7 H Glucose POC Glucose Lactic Acid Calcium 7.7 L Ionized Calcium Phosphorus Magnesium Iron TIBC Ferritin Total Bilirubin Direct Bilirubin AST ALT Alkaline Phosphatase Total Creatine Kinase CK-MB (CK-2) Troponin T C-Reactive Protein Serum Total Protein Total Protein Albumin Lvscc-0-Ekiyivgjp Mnvuf-2-Gklogpoqc PEP Interpretation Triglycerides LDL Cholesterol Direct HDL Cholesterol Free T4 PTH Intact Urine WBC (Auto) Urine Creatinine Salicylates Acetaminophen Crossmatch 04/05/19 04/05/19 04/05/19 05:28 06:14 16:50 WBC RBC Hgb Hct MCV MCHC RDW Plt Count Lymph % (Auto) [place] % (Auto) Lymph # [place] # Seg Neutrophils % Seg Neuts % (Manual) Lymphocytes % (Manual) Monocytes % (Manual) Nucleated RBC % Seg Neutrophils # Seg Neutrophils # Man Lymphocytes # (Manual) Monocytes # (Manual) PT INR D-Dimer Heparin Anti-Xa Level POC ABG pH ABG pH POC ABG pCO2 POC ABG pO2 67 L ABG pO2 ABG HCO3 ABG O2 Saturation ABG Base Excess ABG Hemoglobin Oxyhemoglobin Sodium Potassium Chloride Carbon Dioxide BUN Creatinine Glucose POC Glucose 108 H Lactic Acid Calcium Ionized Calcium Phosphorus Magnesium Iron TIBC Ferritin Total Bilirubin Direct Bilirubin AST ALT Alkaline Phosphatase Total Creatine Kinase CK-MB (CK-2) Troponin T C-Reactive Protein Serum Total Protein Total Protein Albumin Agjnz-0-Qunybjqpi Glzet-5-Tzwyauhsd PEP Interpretation Triglycerides LDL Cholesterol Direct HDL Cholesterol Free T4 PTH Intact Urine WBC (Auto) 40.0 H Urine Creatinine Salicylates Acetaminophen Crossmatch 04/05/19 04/06/19 04/06/19 17:22 00:13 04:44 WBC RBC 2.48 L Hgb 7.5 L Hct 22.9 L MCV MCHC RDW 16.0 H Plt Count 107 L Lymph % (Auto) [place] % (Auto) 10.7 H Lymph # 1.0 L [place] # Seg Neutrophils % Seg Neuts % (Manual) Lymphocytes % (Manual) Monocytes % (Manual) Nucleated RBC % Seg Neutrophils # Seg Neutrophils # Man Lymphocytes # (Manual) Monocytes # (Manual) PT INR D-Dimer Heparin Anti-Xa Level POC ABG pH ABG pH POC ABG pCO2 POC ABG pO2 ABG pO2 ABG HCO3 ABG O2 Saturation ABG Base Excess ABG Hemoglobin Oxyhemoglobin Sodium Potassium Chloride Carbon Dioxide BUN Creatinine Glucose POC Glucose 118 H 138 H Lactic Acid Calcium Ionized Calcium Phosphorus Magnesium Iron TIBC Ferritin Total Bilirubin Direct Bilirubin AST ALT Alkaline Phosphatase Total Creatine Kinase CK-MB (CK-2) Troponin T C-Reactive Protein Serum Total Protein Total Protein Albumin Fgoim-0-Iconcevjb Oqkrg-7-Qredqxfnw PEP Interpretation Triglycerides LDL Cholesterol Direct HDL Cholesterol Free T4 PTH Intact Urine WBC (Auto) Urine Creatinine Salicylates Acetaminophen Crossmatch 04/06/19 04/06/19 04/06/19 04:44 05:20 05:23 WBC RBC Hgb Hct MCV MCHC RDW Plt Count Lymph % (Auto) [place] % (Auto) Lymph # [place] # Seg Neutrophils % Seg Neuts % (Manual) Lymphocytes % (Manual) Monocytes % (Manual) Nucleated RBC % Seg Neutrophils # Seg Neutrophils # Man Lymphocytes # (Manual) Monocytes # (Manual) PT INR D-Dimer Heparin Anti-Xa Level POC ABG pH ABG pH POC ABG pCO2 POC ABG pO2 ABG pO2 104.0 H ABG HCO3 ABG O2 Saturation ABG Base Excess -2.1 L ABG Hemoglobin 7.3 L Oxyhemoglobin Sodium Potassium Chloride Carbon Dioxide BUN 64 H Creatinine 8.2 H Glucose 103 H POC Glucose 118 H Lactic Acid Calcium 7.3 L Ionized Calcium Phosphorus Magnesium Iron TIBC Ferritin Total Bilirubin Direct Bilirubin AST ALT Alkaline Phosphatase Total Creatine Kinase CK-MB (CK-2) Troponin T C-Reactive Protein Serum Total Protein Total Protein Albumin Utgcl-1-Vuywnvtfb Ceudh-2-Xydssujbu PEP Interpretation Triglycerides LDL Cholesterol Direct HDL Cholesterol Free T4 PTH Intact Urine WBC (Auto) Urine Creatinine Salicylates Acetaminophen Crossmatch 04/06/19 04/07/19 04/07/19 12:02 05:40 05:40 WBC RBC 2.59 L Hgb 7.9 L Hct 23.8 L MCV MCHC RDW 15.8 H Plt Count 89 L Lymph % (Auto) [place] % (Auto) 10.3 H Lymph # 1.1 L [place] # Seg Neutrophils % Seg Neuts % (Manual) Lymphocytes % (Manual) Monocytes % (Manual) Nucleated RBC % Seg Neutrophils # Seg Neutrophils # Man Lymphocytes # (Manual) Monocytes # (Manual) PT INR D-Dimer Heparin Anti-Xa Level POC ABG pH ABG pH POC ABG pCO2 POC ABG pO2 ABG pO2 ABG HCO3 ABG O2 Saturation ABG Base Excess ABG Hemoglobin Oxyhemoglobin Sodium 136 L Potassium 3.5 L Chloride Carbon Dioxide BUN 46 H Creatinine 6.2 H Glucose POC Glucose 108 H Lactic Acid Calcium 7.9 L Ionized Calcium Phosphorus Magnesium Iron TIBC Ferritin Total Bilirubin Direct Bilirubin AST ALT Alkaline Phosphatase Total Creatine Kinase CK-MB (CK-2) Troponin T C-Reactive Protein Serum Total Protein Total Protein Albumin Ecpvz-0-Nldkdlaqv Srsjx-9-Lqdsjzxpm PEP Interpretation Triglycerides LDL Cholesterol Direct HDL Cholesterol Free T4 PTH Intact Urine WBC (Auto) Urine Creatinine Salicylates Acetaminophen Crossmatch 04/07/19 04/09/19 04/09/19 12:57 04:28 04:28 WBC RBC 2.85 L Hgb 8.7 L Hct 26.2 L MCV MCHC RDW 15.6 H Plt Count Lymph % (Auto) [place] % (Auto) 10.4 H Lymph # 1.0 L [place] # Seg Neutrophils % 73.3 H Seg Neuts % (Manual) Lymphocytes % (Manual) Monocytes % (Manual) Nucleated RBC % Seg Neutrophils # Seg Neutrophils # Man Lymphocytes # (Manual) Monocytes # (Manual) PT INR D-Dimer Heparin Anti-Xa Level POC ABG pH ABG pH POC ABG pCO2 POC ABG pO2 107 H ABG pO2 ABG HCO3 ABG O2 Saturation ABG Base Excess ABG Hemoglobin Oxyhemoglobin Sodium Potassium 3.5 L Chloride 97.8 L Carbon Dioxide BUN 62 H Creatinine 8.1 H Glucose POC Glucose Lactic Acid Calcium 8.2 L Ionized Calcium Phosphorus 5.10 H Magnesium Iron TIBC Ferritin Total Bilirubin Direct Bilirubin AST ALT Alkaline Phosphatase Total Creatine Kinase CK-MB (CK-2) Troponin T C-Reactive Protein Serum Total Protein Total Protein Albumin Mcezx-9-Mdjbmxzkj Ampqx-6-Umfbtmszq PEP Interpretation Triglycerides LDL Cholesterol Direct HDL Cholesterol Free T4 PTH Intact Urine WBC (Auto) Urine Creatinine Salicylates Acetaminophen Crossmatch 04/10/19 04/11/19 04/11/19 18:15 00:25 04:16 WBC 11.5 H RBC 2.91 L Hgb 8.9 L Hct 27.6 L MCV 95 H MCHC RDW 17.5 H Plt Count Lymph % (Auto) [place] % (Auto) Lymph # [place] # Seg Neutrophils % Seg Neuts % (Manual) 71.0 H Lymphocytes % (Manual) Monocytes % (Manual) 8.0 H Nucleated RBC % Seg Neutrophils # Seg Neutrophils # Man 8.2 H Lymphocytes # (Manual) Monocytes # (Manual) 0.9 H PT INR D-Dimer Heparin Anti-Xa Level POC ABG pH ABG pH POC ABG pCO2 POC ABG pO2 ABG pO2 ABG HCO3 ABG O2 Saturation ABG Base Excess ABG Hemoglobin Oxyhemoglobin Sodium Potassium Chloride Carbon Dioxide BUN Creatinine Glucose POC Glucose 109 H 114 H Lactic Acid Calcium Ionized Calcium Phosphorus Magnesium Iron TIBC Ferritin Total Bilirubin Direct Bilirubin AST ALT Alkaline Phosphatase Total Creatine Kinase CK-MB (CK-2) Troponin T C-Reactive Protein Serum Total Protein Total Protein Albumin Mlwpe-0-Esikjniln Horrb-0-Ycemrdaaa PEP Interpretation Triglycerides LDL Cholesterol Direct HDL Cholesterol Free T4 PTH Intact Urine WBC (Auto) Urine Creatinine Salicylates Acetaminophen Crossmatch 04/11/19 04/11/19 04/11/19 06:47 09:21 12:15 WBC RBC Hgb Hct MCV MCHC RDW Plt Count Lymph % (Auto) [place] % (Auto) Lymph # [place] # Seg Neutrophils % Seg Neuts % (Manual) Lymphocytes % (Manual) Monocytes % (Manual) Nucleated RBC % Seg Neutrophils # Seg Neutrophils # Man Lymphocytes # (Manual) Monocytes # (Manual) PT INR D-Dimer Heparin Anti-Xa Level POC ABG pH ABG pH POC ABG pCO2 POC ABG pO2 ABG pO2 ABG HCO3 ABG O2 Saturation ABG Base Excess ABG Hemoglobin Oxyhemoglobin Sodium Potassium 3.5 L Chloride Carbon Dioxide BUN 45 H Creatinine 6.0 H Glucose 113 H POC Glucose 106 H 109 H Lactic Acid Calcium Ionized Calcium Phosphorus Magnesium Iron TIBC Ferritin Total Bilirubin Direct Bilirubin AST ALT Alkaline Phosphatase Total Creatine Kinase CK-MB (CK-2) Troponin T C-Reactive Protein Serum Total Protein Total Protein Albumin Axqko-9-Iayczhprq Fvsox-6-Llmchqmob PEP Interpretation Triglycerides LDL Cholesterol Direct HDL Cholesterol Free T4 PTH Intact Urine WBC (Auto) Urine Creatinine Salicylates Acetaminophen Crossmatch 04/11/19 04/12/19 04/12/19 18:42 12:13 23:52 WBC RBC Hgb Hct MCV MCHC RDW Plt Count Lymph % (Auto) [place] % (Auto) Lymph # [place] # Seg Neutrophils % Seg Neuts % (Manual) Lymphocytes % (Manual) Monocytes % (Manual) Nucleated RBC % Seg Neutrophils # Seg Neutrophils # Man Lymphocytes # (Manual) Monocytes # (Manual) PT INR D-Dimer Heparin Anti-Xa Level POC ABG pH ABG pH POC ABG pCO2 POC ABG pO2 ABG pO2 ABG HCO3 ABG O2 Saturation ABG Base Excess ABG Hemoglobin Oxyhemoglobin Sodium Potassium Chloride Carbon Dioxide BUN Creatinine Glucose POC Glucose 107 H 115 H 124 H Lactic Acid Calcium Ionized Calcium Phosphorus Magnesium Iron TIBC Ferritin Total Bilirubin Direct Bilirubin AST ALT Alkaline Phosphatase Total Creatine Kinase CK-MB (CK-2) Troponin T C-Reactive Protein Serum Total Protein Total Protein Albumin Vynjm-2-Nztiwmajl Mhybf-9-Rugbyytzu PEP Interpretation Triglycerides LDL Cholesterol Direct HDL Cholesterol Free T4 PTH Intact Urine WBC (Auto) Urine Creatinine Salicylates Acetaminophen Crossmatch 04/13/19 04/13/19 04/13/19 05:00 05:00 05:47 WBC 11.7 H RBC 2.97 L Hgb 8.8 L Hct 27.3 L MCV MCHC RDW 16.1 H Plt Count Lymph % (Auto) 9.5 L [place] % (Auto) 9.9 H Lymph # 1.1 L [place] # 1.2 H Seg Neutrophils % 78.6 H Seg Neuts % (Manual) Lymphocytes % (Manual) Monocytes % (Manual) Nucleated RBC % Seg Neutrophils # 9.2 H Seg Neutrophils # Man Lymphocytes # (Manual) Monocytes # (Manual) PT INR D-Dimer Heparin Anti-Xa Level POC ABG pH ABG pH POC ABG pCO2 POC ABG pO2 ABG pO2 ABG HCO3 ABG O2 Saturation ABG Base Excess ABG Hemoglobin Oxyhemoglobin Sodium Potassium 3.5 L Chloride Carbon Dioxide BUN 42 H Creatinine 4.6 H Glucose 106 H POC Glucose 107 H Lactic Acid Calcium 10.6 H D Ionized Calcium Phosphorus 5.90 H Magnesium Iron TIBC Ferritin Total Bilirubin Direct Bilirubin AST ALT Alkaline Phosphatase Total Creatine Kinase CK-MB (CK-2) Troponin T C-Reactive Protein Serum Total Protein Total Protein 5.8 L Albumin 2.5 L Omyvs-0-Nzmcebuwe Tscvx-3-Gdbzyaewp PEP Interpretation Triglycerides LDL Cholesterol Direct HDL Cholesterol Free T4 PTH Intact Urine WBC (Auto) Urine Creatinine Salicylates Acetaminophen Crossmatch 04/13/19 04/14/19 04/14/19 17:32 00:00 03:55 WBC RBC Hgb Hct MCV MCHC RDW Plt Count Lymph % (Auto) [place] % (Auto) Lymph # [place] # Seg Neutrophils % Seg Neuts % (Manual) Lymphocytes % (Manual) Monocytes % (Manual) Nucleated RBC % Seg Neutrophils # Seg Neutrophils # Man Lymphocytes # (Manual) Monocytes # (Manual) PT INR D-Dimer Heparin Anti-Xa Level POC ABG pH ABG pH POC ABG pCO2 POC ABG pO2 ABG pO2 ABG HCO3 ABG O2 Saturation ABG Base Excess ABG Hemoglobin Oxyhemoglobin Sodium Potassium 3.0 L Chloride Carbon Dioxide BUN 30 H Creatinine 3.1 H Glucose POC Glucose 112 H 120 H Lactic Acid Calcium 10.8 H Ionized Calcium Phosphorus Magnesium Iron TIBC Ferritin Total Bilirubin Direct Bilirubin AST ALT Alkaline Phosphatase Total Creatine Kinase CK-MB (CK-2) Troponin T C-Reactive Protein Serum Total Protein Total Protein Albumin Ebsdk-0-Zghjwdkgg Gorla-9-Kdlgjsqrs PEP Interpretation Triglycerides LDL Cholesterol Direct HDL Cholesterol Free T4 PTH Intact Urine WBC (Auto) Urine Creatinine Salicylates Acetaminophen Crossmatch 04/14/19 04/14/19 04/15/19 11:56 23:28 05:11 WBC 13.0 H RBC 2.93 L Hgb 8.6 L Hct 26.5 L MCV MCHC RDW 16.5 H Plt Count Lymph % (Auto) 12.2 L [place] % (Auto) 9.1 H Lymph # [place] # 1.2 H Seg Neutrophils % 77.6 H Seg Neuts % (Manual) Lymphocytes % (Manual) Monocytes % (Manual) Nucleated RBC % Seg Neutrophils # 10.1 H Seg Neutrophils # Man Lymphocytes # (Manual) Monocytes # (Manual) PT INR D-Dimer Heparin Anti-Xa Level POC ABG pH ABG pH POC ABG pCO2 POC ABG pO2 ABG pO2 ABG HCO3 ABG O2 Saturation ABG Base Excess ABG Hemoglobin Oxyhemoglobin Sodium Potassium Chloride Carbon Dioxide BUN Creatinine Glucose POC Glucose 109 H 112 H Lactic Acid Calcium Ionized Calcium Phosphorus Magnesium Iron TIBC Ferritin Total Bilirubin Direct Bilirubin AST ALT Alkaline Phosphatase Total Creatine Kinase CK-MB (CK-2) Troponin T C-Reactive Protein Serum Total Protein Total Protein Albumin Ukcyy-3-Amedctoib Djodd-9-Gqcudowgw PEP Interpretation Triglycerides LDL Cholesterol Direct HDL Cholesterol Free T4 PTH Intact Urine WBC (Auto) Urine Creatinine Salicylates Acetaminophen Crossmatch 04/15/19 04/15/19 04/15/19 05:11 05:31 18:03 WBC RBC Hgb Hct MCV MCHC RDW Plt Count Lymph % (Auto) [place] % (Auto) Lymph # [place] # Seg Neutrophils % Seg Neuts % (Manual) Lymphocytes % (Manual) Monocytes % (Manual) Nucleated RBC % Seg Neutrophils # Seg Neutrophils # Man Lymphocytes # (Manual) Monocytes # (Manual) PT INR D-Dimer Heparin Anti-Xa Level POC ABG pH ABG pH POC ABG pCO2 POC ABG pO2 ABG pO2 ABG HCO3 ABG O2 Saturation ABG Base Excess ABG Hemoglobin Oxyhemoglobin Sodium Potassium 3.2 L Chloride Carbon Dioxide BUN 44 H Creatinine 3.6 H Glucose 106 H POC Glucose 110 H 121 H Lactic Acid Calcium 12.0 H Ionized Calcium Phosphorus 5.00 H Magnesium Iron TIBC Ferritin Total Bilirubin Direct Bilirubin AST ALT Alkaline Phosphatase Total Creatine Kinase CK-MB (CK-2) Troponin T C-Reactive Protein Serum Total Protein Total Protein Albumin Oibal-6-Wpvgkjzsb Nvtcs-7-Yejkorzye PEP Interpretation Triglycerides LDL Cholesterol Direct HDL Cholesterol Free T4 PTH Intact Urine WBC (Auto) Urine Creatinine Salicylates Acetaminophen Crossmatch 04/16/19 04/16/19 04/17/19 05:07 05:07 04:15 WBC 12.6 H RBC 3.12 L Hgb 9.0 L Hct 28.2 L MCV MCHC RDW 16.6 H Plt Count Lymph % (Auto) 10.3 L [place] % (Auto) 9.8 H Lymph # [place] # 1.2 H Seg Neutrophils % 78.2 H Seg Neuts % (Manual) Lymphocytes % (Manual) Monocytes % (Manual) Nucleated RBC % Seg Neutrophils # 9.9 H Seg Neutrophils # Man Lymphocytes # (Manual) Monocytes # (Manual) PT INR D-Dimer Heparin Anti-Xa Level POC ABG pH ABG pH POC ABG pCO2 POC ABG pO2 ABG pO2 ABG HCO3 ABG O2 Saturation ABG Base Excess ABG Hemoglobin Oxyhemoglobin Sodium 147 H 150 H Potassium 3.5 L 3.1 L Chloride Carbon Dioxide 32 H BUN 54 H 65 H Creatinine 3.8 H 4.0 H Glucose 102 H 107 H POC Glucose Lactic Acid Calcium 11.7 H 12.0 H Ionized Calcium Phosphorus 5.40 H Magnesium Iron TIBC Ferritin Total Bilirubin Direct Bilirubin AST ALT Alkaline Phosphatase Total Creatine Kinase CK-MB (CK-2) Troponin T C-Reactive Protein 7.10 H Serum Total Protein Total Protein Albumin Jfpqp-5-Ppcdwhmwc Oaltd-9-Psadykqpi PEP Interpretation Triglycerides LDL Cholesterol Direct HDL Cholesterol Free T4 PTH Intact Urine WBC (Auto) Urine Creatinine Salicylates Acetaminophen Crossmatch 04/17/19 04/17/19 04/17/19 04:15 06:05 12:49 WBC 15.8 H RBC 3.32 L Hgb 9.5 L Hct 29.9 L MCV MCHC RDW 16.9 H Plt Count Lymph % (Auto) 12.6 L [place] % (Auto) 11.1 H Lymph # [place] # 1.7 H Seg Neutrophils % 74.7 H Seg Neuts % (Manual) Lymphocytes % (Manual) Monocytes % (Manual) Nucleated RBC % Seg Neutrophils # 11.8 H Seg Neutrophils # Man Lymphocytes # (Manual) Monocytes # (Manual) PT INR D-Dimer Heparin Anti-Xa Level POC ABG pH ABG pH POC ABG pCO2 POC ABG pO2 ABG pO2 ABG HCO3 ABG O2 Saturation ABG Base Excess ABG Hemoglobin Oxyhemoglobin Sodium Potassium Chloride Carbon Dioxide BUN Creatinine Glucose POC Glucose 111 H 108 H Lactic Acid Calcium Ionized Calcium Phosphorus Magnesium Iron TIBC Ferritin Total Bilirubin Direct Bilirubin AST ALT Alkaline Phosphatase Total Creatine Kinase CK-MB (CK-2) Troponin T C-Reactive Protein Serum Total Protein Total Protein Albumin Jajvk-5-Hotouzeik Dubjt-7-Vcykhrgsi PEP Interpretation Triglycerides LDL Cholesterol Direct HDL Cholesterol Free T4 PTH Intact Urine WBC (Auto) Urine Creatinine Salicylates Acetaminophen Crossmatch 04/18/19 04/18/19 04/18/19 00:23 04:41 04:41 WBC 19.4 H RBC 3.03 L Hgb 8.6 L Hct 27.5 L MCV MCHC 31 L RDW 16.9 H Plt Count Lymph % (Auto) [place] % (Auto) Lymph # [place] # Seg Neutrophils % Seg Neuts % (Manual) Lymphocytes % (Manual) Monocytes % (Manual) Nucleated RBC % Seg Neutrophils # Seg Neutrophils # Man Lymphocytes # (Manual) Monocytes # (Manual) PT INR D-Dimer Heparin Anti-Xa Level POC ABG pH ABG pH POC ABG pCO2 POC ABG pO2 ABG pO2 ABG HCO3 ABG O2 Saturation ABG Base Excess ABG Hemoglobin Oxyhemoglobin Sodium 152 H Potassium 3.0 L Chloride Carbon Dioxide BUN 80 H Creatinine 4.3 H Glucose 103 H POC Glucose 115 H Lactic Acid Calcium 11.4 H Ionized Calcium Phosphorus Magnesium Iron TIBC Ferritin Total Bilirubin Direct Bilirubin AST ALT Alkaline Phosphatase Total Creatine Kinase CK-MB (CK-2) Troponin T C-Reactive Protein Serum Total Protein Total Protein Albumin Mnpfi-8-Toinmudvz Hjaza-6-Infyuodqj PEP Interpretation Triglycerides LDL Cholesterol Direct HDL Cholesterol Free T4 PTH Intact Urine WBC (Auto) Urine Creatinine Salicylates Acetaminophen Crossmatch 04/18/19 04/18/19 04/18/19 06:17 12:16 18:10 WBC RBC Hgb Hct MCV MCHC RDW Plt Count Lymph % (Auto) [place] % (Auto) Lymph # [place] # Seg Neutrophils % Seg Neuts % (Manual) Lymphocytes % (Manual) Monocytes % (Manual) Nucleated RBC % Seg Neutrophils # Seg Neutrophils # Man Lymphocytes # (Manual) Monocytes # (Manual) PT INR D-Dimer Heparin Anti-Xa Level POC ABG pH ABG pH POC ABG pCO2 POC ABG pO2 ABG pO2 ABG HCO3 ABG O2 Saturation ABG Base Excess ABG Hemoglobin Oxyhemoglobin Sodium Potassium Chloride Carbon Dioxide BUN Creatinine Glucose POC Glucose 124 H 119 H 111 H Lactic Acid Calcium Ionized Calcium Phosphorus Magnesium Iron TIBC Ferritin Total Bilirubin Direct Bilirubin AST ALT Alkaline Phosphatase Total Creatine Kinase CK-MB (CK-2) Troponin T C-Reactive Protein Serum Total Protein Total Protein Albumin Pfzck-8-Tshyaydzp Tyics-7-Lvahqdfli PEP Interpretation Triglycerides LDL Cholesterol Direct HDL Cholesterol Free T4 PTH Intact Urine WBC (Auto) Urine Creatinine Salicylates Acetaminophen Crossmatch 04/19/19 04/19/19 04/20/19 03:49 05:27 09:09 WBC RBC Hgb Hct MCV MCHC RDW Plt Count Lymph % (Auto) [place] % (Auto) Lymph # [place] # Seg Neutrophils % Seg Neuts % (Manual) Lymphocytes % (Manual) Monocytes % (Manual) Nucleated RBC % Seg Neutrophils # Seg Neutrophils # Man Lymphocytes # (Manual) Monocytes # (Manual) PT INR D-Dimer Heparin Anti-Xa Level POC ABG pH ABG pH POC ABG pCO2 POC ABG pO2 ABG pO2 ABG HCO3 ABG O2 Saturation ABG Base Excess ABG Hemoglobin Oxyhemoglobin Sodium 147 H 150 H Potassium 3.3 L Chloride 108.9 H Carbon Dioxide BUN 45 H 70 H Creatinine 2.9 H 4.1 H Glucose 105 H POC Glucose 124 H Lactic Acid Calcium 10.6 H 11.6 H Ionized Calcium Phosphorus Magnesium Iron TIBC Ferritin Total Bilirubin Direct Bilirubin AST ALT Alkaline Phosphatase Total Creatine Kinase CK-MB (CK-2) Troponin T C-Reactive Protein Serum Total Protein Total Protein Albumin Izgbe-2-Gnphgnkcd Edczv-9-Qxaxprlsu PEP Interpretation Triglycerides LDL Cholesterol Direct HDL Cholesterol Free T4 PTH Intact Urine WBC (Auto) Urine Creatinine Salicylates Acetaminophen Crossmatch 04/20/19 04/20/19 04/21/19 12:29 18:45 01:34 WBC RBC Hgb Hct MCV MCHC RDW Plt Count Lymph % (Auto) [place] % (Auto) Lymph # [place] # Seg Neutrophils % Seg Neuts % (Manual) Lymphocytes % (Manual) Monocytes % (Manual) Nucleated RBC % Seg Neutrophils # Seg Neutrophils # Man Lymphocytes # (Manual) Monocytes # (Manual) PT INR D-Dimer Heparin Anti-Xa Level POC ABG pH ABG pH POC ABG pCO2 POC ABG pO2 ABG pO2 ABG HCO3 ABG O2 Saturation ABG Base Excess ABG Hemoglobin Oxyhemoglobin Sodium Potassium Chloride Carbon Dioxide BUN 40 H Creatinine 2.6 H Glucose 104 H POC Glucose 131 H 134 H Lactic Acid Calcium 11.0 H Ionized Calcium Phosphorus Magnesium Iron TIBC Ferritin Total Bilirubin Direct Bilirubin AST ALT Alkaline Phosphatase Total Creatine Kinase CK-MB (CK-2) Troponin T C-Reactive Protein Serum Total Protein Total Protein Albumin Tmbpe-2-Uemvlysgo Gmqia-6-Xgyublnvy PEP Interpretation Triglycerides LDL Cholesterol Direct HDL Cholesterol Free T4 PTH Intact Urine WBC (Auto) Urine Creatinine Salicylates Acetaminophen Crossmatch 04/21/19 04/21/19 04/22/19 04:22 04:22 04:24 WBC 14.2 H 14.3 H RBC 3.02 L 3.57 L Hgb 8.7 L 10.1 L Hct 27.2 L 32.1 L MCV MCHC RDW 16.7 H 17.2 H Plt Count Lymph % (Auto) [place] % (Auto) Lymph # [place] # Seg Neutrophils % Seg Neuts % (Manual) Lymphocytes % (Manual) Monocytes % (Manual) Nucleated RBC % Seg Neutrophils # Seg Neutrophils # Man Lymphocytes # (Manual) Monocytes # (Manual) PT INR D-Dimer Heparin Anti-Xa Level POC ABG pH ABG pH POC ABG pCO2 POC ABG pO2 ABG pO2 ABG HCO3 ABG O2 Saturation ABG Base Excess ABG Hemoglobin Oxyhemoglobin Sodium Potassium Chloride Carbon Dioxide BUN Creatinine Glucose POC Glucose Lactic Acid Calcium Ionized Calcium Phosphorus Magnesium Iron TIBC Ferritin Total Bilirubin Direct Bilirubin AST ALT Alkaline Phosphatase Total Creatine Kinase CK-MB (CK-2) Troponin T C-Reactive Protein Serum Total Protein 5.7 L Total Protein Albumin 2.3 L Itrst-0-Jhrunhlvl 0.5 H Pafac-0-Poyivpthc 1.0 H PEP Interpretation see below H Triglycerides LDL Cholesterol Direct HDL Cholesterol Free T4 PTH Intact Urine WBC (Auto) Urine Creatinine Salicylates Acetaminophen Crossmatch 04/22/19 04/22/19 04/22/19 04:24 06:37 11:57 WBC RBC Hgb Hct MCV MCHC RDW Plt Count Lymph % (Auto) [place] % (Auto) Lymph # [place] # Seg Neutrophils % Seg Neuts % (Manual) Lymphocytes % (Manual) Monocytes % (Manual) Nucleated RBC % Seg Neutrophils # Seg Neutrophils # Man Lymphocytes # (Manual) Monocytes # (Manual) PT INR D-Dimer Heparin Anti-Xa Level POC ABG pH ABG pH POC ABG pCO2 POC ABG pO2 ABG pO2 ABG HCO3 ABG O2 Saturation ABG Base Excess ABG Hemoglobin Oxyhemoglobin Sodium Potassium Chloride Carbon Dioxide BUN 54 H Creatinine 3.5 H Glucose POC Glucose 113 H 110 H Lactic Acid Calcium 11.4 H Ionized Calcium Phosphorus Magnesium Iron TIBC Ferritin Total Bilirubin Direct Bilirubin AST ALT Alkaline Phosphatase Total Creatine Kinase CK-MB (CK-2) Troponin T C-Reactive Protein Serum Total Protein Total Protein Albumin Rbmck-3-Zqlgzlikp Fqlxf-6-Xzitaytsa PEP Interpretation Triglycerides LDL Cholesterol Direct HDL Cholesterol Free T4 PTH Intact Urine WBC (Auto) Urine Creatinine Salicylates Acetaminophen Crossmatch 04/22/19 04/23/19 04/23/19 18:33 04:06 04:06 WBC 16.1 H RBC 3.36 L Hgb 9.8 L Hct 30.8 L MCV MCHC RDW 17.7 H Plt Count Lymph % (Auto) 9.9 L [place] % (Auto) Lymph # [place] # Seg Neutrophils % 84.2 H Seg Neuts % (Manual) Lymphocytes % (Manual) Monocytes % (Manual) Nucleated RBC % Seg Neutrophils # 13.6 H Seg Neutrophils # Man Lymphocytes # (Manual) Monocytes # (Manual) PT INR D-Dimer Heparin Anti-Xa Level POC ABG pH ABG pH POC ABG pCO2 POC ABG pO2 ABG pO2 ABG HCO3 ABG O2 Saturation ABG Base Excess ABG Hemoglobin Oxyhemoglobin Sodium Potassium Chloride Carbon Dioxide BUN 59 H Creatinine 3.8 H Glucose POC Glucose 120 H Lactic Acid Calcium 12.3 H* Ionized Calcium Phosphorus 5.70 H Magnesium Iron TIBC Ferritin Total Bilirubin Direct Bilirubin AST ALT Alkaline Phosphatase Total Creatine Kinase CK-MB (CK-2) Troponin T C-Reactive Protein Serum Total Protein Total Protein Albumin 3.2 L Kegdr-6-Yftivimvx Vniyp-8-Eaddnapcu PEP Interpretation Triglycerides LDL Cholesterol Direct HDL Cholesterol Free T4 PTH Intact Urine WBC (Auto) Urine Creatinine Salicylates Acetaminophen Crossmatch 04/23/19 04/24/19 04/24/19 18:06 04:12 04:12 WBC 18.0 H RBC 3.46 L Hgb 9.8 L Hct 31.2 L MCV MCHC 31 L RDW 17.5 H Plt Count Lymph % (Auto) 11.1 L [place] % (Auto) Lymph # [place] # Seg Neutrophils % 81.9 H Seg Neuts % (Manual) Lymphocytes % (Manual) Monocytes % (Manual) Nucleated RBC % Seg Neutrophils # 14.7 H Seg Neutrophils # Man Lymphocytes # (Manual) Monocytes # (Manual) PT INR D-Dimer Heparin Anti-Xa Level POC ABG pH ABG pH POC ABG pCO2 POC ABG pO2 ABG pO2 ABG HCO3 ABG O2 Saturation ABG Base Excess ABG Hemoglobin Oxyhemoglobin Sodium Potassium Chloride Carbon Dioxide BUN 56 H Creatinine 3.6 H Glucose POC Glucose 124 H Lactic Acid Calcium 12.6 H* Ionized Calcium Phosphorus Magnesium Iron TIBC Ferritin Total Bilirubin Direct Bilirubin AST ALT Alkaline Phosphatase Total Creatine Kinase CK-MB (CK-2) Troponin T C-Reactive Protein Serum Total Protein Total Protein Albumin 3.2 L Jtkjy-7-Iumnfowsr Ipocu-1-Nyiyygjqb PEP Interpretation Triglycerides LDL Cholesterol Direct HDL Cholesterol Free T4 PTH Intact Urine WBC (Auto) Urine Creatinine Salicylates Acetaminophen Crossmatch 04/24/19 04/24/19 04/25/19 06:21 11:47 05:58 WBC 18.0 H RBC 2.98 L Hgb 8.3 L Hct 26.5 L MCV MCHC 31 L RDW 17.9 H Plt Count Lymph % (Auto) 10.1 L [place] % (Auto) Lymph # [place] # 0.9 H Seg Neutrophils % 82.8 H Seg Neuts % (Manual) Lymphocytes % (Manual) Monocytes % (Manual) Nucleated RBC % Seg Neutrophils # 15.0 H Seg Neutrophils # Man Lymphocytes # (Manual) Monocytes # (Manual) PT INR D-Dimer Heparin Anti-Xa Level POC ABG pH ABG pH POC ABG pCO2 POC ABG pO2 ABG pO2 ABG HCO3 ABG O2 Saturation ABG Base Excess ABG Hemoglobin Oxyhemoglobin Sodium Potassium Chloride Carbon Dioxide BUN Creatinine Glucose POC Glucose 132 H 106 H Lactic Acid Calcium Ionized Calcium Phosphorus Magnesium Iron TIBC Ferritin Total Bilirubin Direct Bilirubin AST ALT Alkaline Phosphatase Total Creatine Kinase CK-MB (CK-2) Troponin T C-Reactive Protein Serum Total Protein Total Protein Albumin Rlmbm-4-Copsvnlnw Fmkzi-7-Eyvbsnkrg PEP Interpretation Triglycerides LDL Cholesterol Direct HDL Cholesterol Free T4 PTH Intact Urine WBC (Auto) Urine Creatinine Salicylates Acetaminophen Crossmatch 04/25/19 04/26/19 04/26/19 05:58 05:57 06:08 WBC RBC Hgb Hct MCV MCHC RDW Plt Count Lymph % (Auto) [place] % (Auto) Lymph # [place] # Seg Neutrophils % Seg Neuts % (Manual) Lymphocytes % (Manual) Monocytes % (Manual) Nucleated RBC % Seg Neutrophils # Seg Neutrophils # Man Lymphocytes # (Manual) Monocytes # (Manual) PT INR D-Dimer Heparin Anti-Xa Level POC ABG pH ABG pH POC ABG pCO2 POC ABG pO2 ABG pO2 ABG HCO3 ABG O2 Saturation ABG Base Excess ABG Hemoglobin Oxyhemoglobin Sodium Potassium 3.2 L Chloride Carbon Dioxide BUN 52 H 48 H Creatinine 3.2 H 2.9 H Glucose 108 H 112 H POC Glucose 109 H Lactic Acid Calcium 11.4 H 12.5 H* Ionized Calcium Phosphorus 5.90 H Magnesium Iron TIBC Ferritin Total Bilirubin Direct Bilirubin AST ALT Alkaline Phosphatase Total Creatine Kinase CK-MB (CK-2) Troponin T C-Reactive Protein Serum Total Protein Total Protein Albumin 3.0 L Dzwac-2-Tesikushf Tmums-4-Xglnebyql PEP Interpretation Triglycerides LDL Cholesterol Direct HDL Cholesterol Free T4 PTH Intact Urine WBC (Auto) Urine Creatinine Salicylates Acetaminophen Crossmatch 04/26/19 04/26/19 04/27/19 07:22 13:39 05:05 WBC 11.9 H RBC 3.01 L Hgb 8.6 L Hct 26.3 L MCV MCHC RDW 17.6 H Plt Count Lymph % (Auto) 11.9 L [place] % (Auto) Lymph # [place] # Seg Neutrophils % 78.3 H Seg Neuts % (Manual) Lymphocytes % (Manual) Monocytes % (Manual) Nucleated RBC % Seg Neutrophils # 9.4 H Seg Neutrophils # Man Lymphocytes # (Manual) Monocytes # (Manual) PT INR D-Dimer Heparin Anti-Xa Level POC ABG pH ABG pH POC ABG pCO2 POC ABG pO2 ABG pO2 ABG HCO3 ABG O2 Saturation ABG Base Excess ABG Hemoglobin Oxyhemoglobin Sodium Potassium Chloride Carbon Dioxide BUN 46 H Creatinine 2.8 H Glucose POC Glucose Lactic Acid Calcium > 13.0 H* 12.2 H* Ionized Calcium Phosphorus Magnesium Iron TIBC Ferritin Total Bilirubin Direct Bilirubin AST ALT Alkaline Phosphatase Total Creatine Kinase CK-MB (CK-2) Troponin T C-Reactive Protein Serum Total Protein Total Protein Albumin Syias-0-Cgdvypmdu Ycmrc-4-Erahecnrb PEP Interpretation Triglycerides LDL Cholesterol Direct HDL Cholesterol Free T4 PTH Intact Urine WBC (Auto) Urine Creatinine Salicylates Acetaminophen Crossmatch 04/27/19 04/28/19 04/29/19 05:05 05:17 14:14 WBC RBC Hgb Hct MCV MCHC RDW Plt Count Lymph % (Auto) [place] % (Auto) Lymph # [place] # Seg Neutrophils % Seg Neuts % (Manual) Lymphocytes % (Manual) Monocytes % (Manual) Nucleated RBC % Seg Neutrophils # Seg Neutrophils # Man Lymphocytes # (Manual) Monocytes # (Manual) PT INR D-Dimer Heparin Anti-Xa Level POC ABG pH ABG pH POC ABG pCO2 POC ABG pO2 ABG pO2 ABG HCO3 ABG O2 Saturation ABG Base Excess ABG Hemoglobin Oxyhemoglobin Sodium 136 L Potassium 3.2 L 3.4 L Chloride Carbon Dioxide BUN 40 H 34 H 33 H Creatinine 2.5 H 2.0 H 1.9 H Glucose 113 H 107 H POC Glucose Lactic Acid Calcium 12.3 H* 12.1 H* 11.5 H Ionized Calcium Phosphorus Magnesium Iron TIBC Ferritin Total Bilirubin Direct Bilirubin AST ALT Alkaline Phosphatase Total Creatine Kinase CK-MB (CK-2) Troponin T C-Reactive Protein Serum Total Protein Total Protein 6.2 L Albumin 2.8 L Vsgqx-8-Hhjitacud Dizcd-7-Mzflkrpub PEP Interpretation Triglycerides LDL Cholesterol Direct HDL Cholesterol Free T4 PTH Intact Urine WBC (Auto) Urine Creatinine Salicylates Acetaminophen Crossmatch 04/29/19 04/30/19 04/30/19 14:14 06:47 12:17 WBC RBC Hgb Hct MCV MCHC RDW Plt Count Lymph % (Auto) [place] % (Auto) Lymph # [place] # Seg Neutrophils % Seg Neuts % (Manual) Lymphocytes % (Manual) Monocytes % (Manual) Nucleated RBC % Seg Neutrophils # Seg Neutrophils # Man Lymphocytes # (Manual) Monocytes # (Manual) PT INR D-Dimer Heparin Anti-Xa Level POC ABG pH ABG pH POC ABG pCO2 POC ABG pO2 ABG pO2 ABG HCO3 ABG O2 Saturation ABG Base Excess ABG Hemoglobin Oxyhemoglobin Sodium Potassium 3.2 L Chloride Carbon Dioxide 21 L BUN 26 H Creatinine 1.8 H Glucose POC Glucose 106 H Lactic Acid Calcium 10.8 H Ionized Calcium Phosphorus Magnesium Iron TIBC Ferritin Total Bilirubin Direct Bilirubin AST ALT Alkaline Phosphatase Total Creatine Kinase CK-MB (CK-2) Troponin T C-Reactive Protein Serum Total Protein Total Protein Albumin Nbjbs-1-Iuhbuzlkx Qddje-4-Khxlbvaaz PEP Interpretation Triglycerides LDL Cholesterol Direct HDL Cholesterol Free T4 PTH Intact 8.83 L Urine WBC (Auto) Urine Creatinine Salicylates Acetaminophen Crossmatch Allied health notes reviewed: nursing
[2019-04-30] MEDS: AMIODARONE 200 MG TAB PO SCH ×2 (14:36→22:24)
--- NOTE | 2019-04-30 15:09 | Progress Note ---
Assessment and Plan Cultures: 03/16/2019 sputum: salivary contamination 03/16/2019 Blood culture: no growth 03/17/2019 Urine culture no growth 03/17/2019 throat culture: no growth 03/26/2019 Blood culture: no growth 03/27/2019 Blood culture negative. 04/04/2019 blood culture NGTD 04/05/2019 urine culture: no growth 04/11/2019 blood culture: no growth 04/15/2019 blood culture: no growth Assessment: 43y/o male with possible psych history admitted on 03/16/2019 with: 1) Septic shock: Resolved. Fever after right IJ exchanged overwire on 03/27, fever had improved. Brain MRI showed no acute intracranial abnormality, mild nonspecific chronic white matter changes, fluid throughout the sinuses and mastoid air cells. Venous US + right IJ DVT. Completed empiric Cefepime x 10 days on 04/06/2019. Initial septic shock - Possible Infectious etiology v/s possibility of Neuroleptic Malignant Syndrome given psych history, high fever of 105F and extremely elevated CPK of >100K. Unclear if he was on any psych med. From ID standpoint, we will continue broad coverage for acute bacterial meningitis, tick borne illness, aspiration pneumonia. Blood culture negative UA with mild pyuria. HIV rapid negative. Strep A rapid ag negative. No obvious infectious source identified yet. 2) High fevers with elevated WBC: ?drug fever v/s infected HD cath. Blood cultures have remained negative. CXR with no obvious pneumonia. Fevers have resolved but white count has elevated, now stable. No new symptoms to explain, will follow. 3) Probable aspiration pneumonia, fluid overload, acute resp failure: on oxygen. Previously completed abx. 4) Acute encephalopathy: improving, awake, alert, calm. 5) Acute renal failure: renally dosing all abx, now on iHD. 6) Elevated LFTs/shock liver: resolved. 7) Thrombocytopenia: platelet normalized. 8) Rhabdomyolysis: CK normalized. 9) Multiple superficial wounds: do not appear infected. Continue wound care. Recommendations: Afebrile off antibiotics, continue to monitor Patient is doing well off antibiotics, will sign off for now. Please call with any questions or concerns. Katie Palmer MD [facility] M: [phone] O: [phone] F: [phone] Subjective Date of service: 04/30/19 Principal diagnosis: hypercalcemia - anemia Interval history: Remains afebrile. Objective - Exam Narrative Exam: General appearance: alert, awake Eyes: pupils dannie contracted poorly reactive, no jaundice HENT: Atraumatic; oropharynx with ETT/OGT Neck: no JVD Lungs:distant BS CV: RRR Abdomen: Soft, non-tender Extremities: marked dannie leg edema/arm edema Skin:no rash, +scrotal edema Psych: NAD Neuro: Normal strength - Constitutional Vitals: Vital Signs Temp Pulse Resp BP Pulse Ox 97.8 F 87 20 114/59 92 04/30/19 10:46 04/30/19 10:46 04/30/19 10:46 04/30/19 10:46 04/30/19 10:46 Temperature -Last 24 Hours Temperature 97.8 F Temperature 97.8 F Temperature 98.1 F Temperature 98.1 F - Labs CBC & Chem 7: 04/27/19 05:05 04/30/19 06:47 Labs: Abnormal lab results 04/30/19 04/30/19 Range/Units 06:47 12:17 Potassium 3.2 L (3.6-5.0) mmol/L Carbon Dioxide 21 L (22-30) mmol/L BUN 26 H (9-20) mg/dL Creatinine 1.8 H (0.8-1.5) mg/dL POC Glucose 106 H (70-105) Calcium 10.8 H (8.4-10.2) mg/dL
[2019-04-30] MEDS ORDERED: ALUM-MAG HYDROXIDE-SIMETHICONE 200-200-20MG/5ML ORAL LIQD 30 ML PO PRN (15:15)
--- NOTE | 2019-04-30 17:06 | Progress Note ---
Assessment and Plan Assessment and plan: Patient is a 43-year-old man with history of GERD, obesity and mental illness, who presented to [facility] ED on 03/16/2019 with altered mental status. He is visiting from [place] and was brought in by his friend. As per records per family he has been homeless [address] [place]. When he came to the ER, he was unable to speak or follow commands, in the ER he was found to have SVT with heart rate in the 250s. The patient was shocked and medicated. Also was confused, and had trouble protecting his airway; therefore, he was then intubated. He has had a prolonged hospital course. During this hospital course, he was found to have sepsis with septic shock, acute resp failure, rhabdomyolysis, RUBEN, and multisystem organ failure, toxic metabolic encephalopathy. He was started on hemodialysis-still getting dialysis. patient is much improved. Still has recurrent fever, followed by ID Physician. Patient now on Azactam, Zyvox. He passed his swallow test started on mechanical soft diet today 04/21/19. * Initial rhythm appeared to be SVT * Per friend patient complaining of feeling ill and has some left eye discharge, cold, clammy and diaphrietic by the time arrived to the hospital. Also mentions a possibility of a right axilla abscess. The and went to stay with his girlfriend the last 2 days and this morning when he saw the patient he was ill-appearing but sleeping. * Currently on 4 pressors * Start on Elizabeth culture including coverage for possible Meningitis CHEST 1 VIEW . IMPRESSION: 1. Endotracheal tube in good position. 2. Nasogastric tube doubled back on itself at the level of the sal[place] with the tip not seen. The tube will need to be removed/reposition. CT of the chest, abdomen and pelvis without contrast . IMPRESSION: 1. Parenchymal disease in both lower lobes posteromedially may be related to aspiration pneumonia. 2. Moderately dilated small bowel bowel loops in the mid to upper abdomen anteriorly with mild associated bowel wall thickening. Locali zed enteritis and small bowel ischemia should be considered. CT head/brain wo contrast. IMPRESSION: 1. Some component of diffuse cerebral edema cannot be excluded. However, this finding may be artifactual secondary to patient positioning. Close follow-up is recommended. No definitive signs of herniation or large territorial infarct at this time. 2. Otherwise, no focal mass, hemorrhage, hydrocephalus, or large infarct seen. * Goal of care * Continue aggressive PT/OT * Woundcare * Encourage Incentive spirometer use * awaiting placement Acute hypoxic respiratory failure. Was intubated, now extubated. Now on Room air. Continue BiPAP as clinically indicated. Right upper ext DVT: Unfortunately patient with clot adherent ulcer on EGD, Unable to irrigate out. H/H relatively stable and plt improved. Will recommend elevating upper ext. SVT with Polymorphic Vtach/Atrial fibrillation. Continue Metoprolol. Cardiology following. No systemic AC regarding AFib in setting of anemia, thrombocytopenia, GI bleed. Acute blood loss anemia. Patient with GI bleed secondary to peptic ulcer disease. EGD completed per GI. Continue PRBCs as needed. GI bleed/peptic ulcer disease. Continue PPI. Transfuse PRBCs as needed. Sepsis/septic shock. Continue antibiotics per ID. Now on Zyvox and Azactam Right Axillary cellulitis/Suspect Aspiration pneumonia/Acute Cystitis: Antibiotics stopped. Fever, recurrent- Improved ID following Severe Metabolic Acidosis- Resolved Hypercalcemia: Slight improvement. Continue to monitor- give fluids and lasix, recalled Sales Director Multi-Organ failure/ Ischemic hepatitis/shock liver. Elevated LFTs improved. Viral hepatitis panel negative Acute Kidney Failure secondary to ATN ANURIC. Patient still on hemodialysis. Patient was started on hemodialysis on 03/18/19 due to worsening metabolic acidosis and hyperkalemia. Baseline renal function is unknown. CT abdomen was negative for obstructive nephropathy. Avoid nephrotoxic agents. Continue hemodialysis per nephrology. Toxic metabolic encephalopathy. Brain MRI showed no acute intracranial abnormality, mild nonspecific chronic white matter changes, fluid throughout the sinuses and mastoid air cells. Swelling both upper ext L>R Doppler US : no DVT LUE Repeat doppler Continue wound care Patient recieved fluids, will give calcium Left AC wound- Dressing in place, wound care following and proscribing management Hypokalemia. Correted Replete potassium as needed. Hypernatremia. Follow-up BMP, Nephrology following Now resolved Thrombocytopenia, Presume DIC. Etiology likely secondary to sepsis. Resolved. Rhabdomyolysis. CK normalized. Full code status Continue aggressive PT. Pysch input is noted History Interval history: Patient seen and examined, no new complaints, noted edema of the left arm and right arm improving. dressing still in place. Discussed with Nursings staff about elevating upper ext. Extensive discussion with patient abut passive range of motion exercise Hospitalist Physical - Physical exam Narrative exam: Constitutional: well-developed. No distress, temporal wasting, lethargic Head: Normocephalic atraumatic Eyes: Pupils are equal round and reactive to light Mouth: Moist mucous membranes. Neck: Supple no thyromegaly. No bruit. No JVD Heart: Irregularly irregular. No rubs murmurs or gallop Lungs: Clear to auscultation bilaterally. no rales or rhonchi Abdomen: Soft, nontender. Bowel sound are present. Extremities: left upper ext edema, dressing in place. no cyanosis, no clubbing. Neuro: Alert oriented Oriented x3. No focal sensory or motor deficit. Skin:Diffuse multple ulcerated lesions- see wound care notes, has been present. but dressing covering. Non draining. Musculoskeletal system: No joint pain Hematological: No petechia or subcutanous hemorrhages. Psychiatry: Euthymic. Calm. - Constitutional Vitals: Temp Pulse Resp BP Pulse Ox 97.8 F 87 20 114/59 92 04/30/19 10:46 04/30/19 10:46 04/30/19 10:46 04/30/19 10:46 04/30/19 10:46 General appearance: Present: obese Results - Labs CBC & Chem 7: 04/27/19 05:05 04/30/19 06:47 Labs: Laboratory Last Values WBC 11.9 K/mm3 (4.5-11.0) H 04/27/19 05:05 RBC 3.01 M/mm3 (3.65-5.03) L 04/27/19 05:05 Hgb 8.6 gm/dl (11.8-15.2) L 04/27/19 05:05 Hct 26.3 % (35.5-45.6) L 04/27/19 05:05 MCV 87 fl (84-94) 04/27/19 05:05 MCH 29 pg (28-32) 04/27/19 05:05 MCHC 33 % (32-34) 04/27/19 05:05 RDW 17.6 % (13.2-15.2) H 04/27/19 05:05 Plt Count 397 K/mm3 (140-440) 04/27/19 05:05 Lymph % (Auto) 11.9 % (13.4-35.0) L 04/27/19 05:05 [place] % (Auto) 5.3 % (0.0-7.3) 04/27/19 05:05 Eos % (Auto) 3.7 % (0.0-4.3) 04/27/19 05:05 Baso % (Auto) 0.8 % (0.0-1.8) 04/27/19 05:05 Lymph # 1.4 K/mm3 (1.2-5.4) 04/27/19 05:05 [place] # 0.6 K/mm3 (0.0-0.8) 04/27/19 05:05 Eos # 0.4 K/mm3 (0.0-0.4) 04/27/19 05:05 Baso # 0.1 K/mm3 (0.0-0.1) 04/27/19 05:05 Add Manual Diff Complete 04/11/19 04:16 Total Counted 100 04/11/19 04:16 Seg Neutrophils % 78.3 % (40.0-70.0) H 04/27/19 05:05 Seg Neuts % (Manual) 71.0 % (40.0-70.0) H 04/11/19 04:16 Band Neutrophils % 1.0 % 04/11/19 04:16 Lymphocytes % (Manual) 17.0 % (13.4-35.0) 04/11/19 04:16 Reactive Lymphs % (Man) 0 % 04/11/19 04:16 Monocytes % (Manual) 8.0 % (0.0-7.3) H 04/11/19 04:16 Eosinophils % (Manual) 2.0 % (0.0-4.3) 04/11/19 04:16 Basophils % (Manual) 1.0 % (0.0-1.8) 04/11/19 04:16 Metamyelocytes % 0 % 04/11/19 04:16 Myelocytes % 0 % 04/11/19 04:16 Promyelocytes % 0 % 04/11/19 04:16 Blast Cells % 0 % 04/11/19 04:16 Nucleated RBC % Not Reportable 04/11/19 04:16 Seg Neutrophils # 9.4 K/mm3 (1.8-7.7) H 04/27/19 05:05 Seg Neutrophils # Man 8.2 K/mm3 (1.8-7.7) H 04/11/19 04:16 Band Neutrophils # 0.1 K/mm3 04/11/19 04:16 Lymphocytes # (Manual) 2.0 K/mm3 (1.2-5.4) 04/11/19 04:16 Abs React Lymphs (Man) 0.0 K/mm3 04/11/19 04:16 Monocytes # (Manual) 0.9 K/mm3 (0.0-0.8) H 04/11/19 04:16 Eosinophils # (Manual) 0.2 K/mm3 (0.0-0.4) 04/11/19 04:16 Basophils # (Manual) 0.1 K/mm3 (0.0-0.1) 04/11/19 04:16 Metamyelocytes # 0.0 K/mm3 04/11/19 04:16 Myelocytes # 0.0 K/mm3 04/11/19 04:16 Promyelocytes # 0.0 K/mm3 04/11/19 04:16 Blast Cells # 0.0 K/mm3 04/11/19 04:16 WBC Morphology Not Reportable 04/11/19 04:16 Hypersegmented Neuts Not Reportable 04/11/19 04:16 Hyposegmented Neuts Not Reportable 04/11/19 04:16 Hypogranular Neuts Not Reportable 04/11/19 04:16 Smudge Cells Not Reportable 04/11/19 04:16 Toxic Granulation Not Reportable 04/11/19 04:16 Toxic Vacuolation Not Reportable 04/11/19 04:16 Dohle Bodies Not Reportable 04/11/19 04:16 Pelger-Huet Anomaly Not Reportable 04/11/19 04:16 Joyce Rods Not Reportable 04/11/19 04:16 Platelet Estimate Consistent w auto 04/11/19 04:16 Clumped Platelets Not Reportable 04/11/19 04:16 Plt Clumps, EDTA Not Reportable 04/11/19 04:16 Large Platelets Not Reportable 04/11/19 04:16 Giant Platelets Not Reportable 04/11/19 04:16 Platelet Satelliting Not Reportable 04/11/19 04:16 Plt Morphology Comment Not Reportable 04/11/19 04:16 RBC Morphology Not Reportable 04/11/19 04:16 Dimorphic RBCs Not Reportable 04/11/19 04:16 Polychromasia Not Reportable 04/11/19 04:16 Hypochromasia Not Reportable 04/11/19 04:16 Poikilocytosis Not Reportable 04/11/19 04:16 Anisocytosis Rare 04/11/19 04:16 Microcytosis Rare 04/11/19 04:16 Macrocytosis Not Reportable 04/11/19 04:16 Spherocytes Not Reportable 04/11/19 04:16 Pappenheimer Bodies Not Reportable 04/11/19 04:16 Sickle Cells Not Reportable 04/11/19 04:16 Target Cells Not Reportable 04/11/19 04:16 Tear Drop Cells Not Reportable 04/11/19 04:16 Ovalocytes Not Reportable 04/11/19 04:16 Stomatocytes Few 03/26/19 Unknown Helmet Cells Not Reportable 04/11/19 04:16 [place] Bodies Not Reportable 04/11/19 04:16 [place] Rings Not Reportable 04/11/19 04:16 [place] Cells Not Reportable 04/11/19 04:16 Bite Cells Not Reportable 04/11/19 04:16 Crenated Cell Not Reportable 04/11/19 04:16 Elliptocytes Not Reportable 04/11/19 04:16 Acanthocytes (Spur) Not Reportable 04/11/19 04:16 Rouleaux Not Reportable 04/11/19 04:16 Hemoglobin C Crystals Not Reportable 04/11/19 04:16 Schistocytes Not Reportable 04/11/19 04:16 Malaria parasites Not Reportable 04/11/19 04:16 Phil Bodies Not Reportable 04/11/19 04:16 Hem Pathologist Commnt No 04/11/19 04:16 PT 15.3 Sec. (12.2-14.9) H 03/29/19 11:48 INR 1.24 (0.87-1.13) H 03/29/19 11:48 APTT 26.6 Sec. (24.2-36.6) 03/28/19 12:00 Fibrinogen 226 mg/dl (211-480) 03/28/19 12:00 D-Dimer 4845.98 ng/mlDDU (0-234) H 03/28/19 12:00 Heparin Anti-Xa Level 0.23 U.I./ml (0.3-0.7) L 03/28/19 05:13 POC ABG pH 7.401 (7.35-7.45) 04/07/19 12:57 ABG pH 7.388 pH Units (7.350-7.450) 04/06/19 05:20 POC ABG pCO2 41.5 (35-45) 04/07/19 12:57 ABG pCO2 38.5 mm Hg 04/06/19 05:20 POC ABG pO2 107 (80-105) H 04/07/19 12:57 ABG pO2 104.0 mm Hg (80.0-90.0) H 04/06/19 05:20 POC ABG HCO3 25.7 (22-26 mml/L) 04/07/19 12:57 ABG HCO3 22.6 mmol/L (20.0-26.0) 04/06/19 05:20 POC ABG Total CO2 27 (23-27mmol/L) 04/07/19 12:57 POC ABG O2 Sat 98 04/07/19 12:57 ABG O2 Saturation 97.8 % (95.0-99.0) 04/06/19 05:20 ABG O2 Content 10.0 (0.0-44) 04/06/19 05:20 POC ABG Base Excess 1 ((-2) - (+3)mmol/L) 04/07/19 12:57 ABG Base Excess -2.1 mmol/L (-2.0-3.0) L 04/06/19 05:20 ABG Hemoglobin 7.3 gm/dl (14.0-18.0) L 04/06/19 05:20 ABG Carboxyhemoglobin 1.7 % (0.0-5.0) 04/06/19 05:20 ABG Methemoglobin 0.6 % (0.0-1.5) 04/06/19 05:20 Oxyhemoglobin 95.5 % (95.0-99.0) 04/06/19 05:20 FiO2 30 % 04/07/19 12:57 Sodium 140 mmol/L (137-145) 04/30/19 06:47 Potassium 3.2 mmol/L (3.6-5.0) L 04/30/19 06:47 Chloride 103.4 mmol/L (98-107) 04/30/19 06:47 Carbon Dioxide 21 mmol/L (22-30) L 04/30/19 06:47 Anion Gap 19 mmol/L 04/30/19 06:47 BUN 26 mg/dL (9-20) H 04/30/19 06:47 Creatinine 1.8 mg/dL (0.8-1.5) H 04/30/19 06:47 Estimated GFR 41 ml/min 04/30/19 06:47 BUN/Creatinine Ratio 14 % 04/30/19 06:47 Glucose 91 mg/dL (75-100) 04/30/19 06:47 POC Glucose 106 (70-105) H 04/30/19 12:17 Lactic Acid 1.90 mmol/L (0.7-2.0) 03/21/19 21:31 Calcium 10.8 mg/dL (8.4-10.2) H 04/30/19 06:47 Ionized Calcium 3.7 mg/dL (4.8-5.6) L 03/30/19 12:09 Phosphorus 5.90 mg/dL (2.5-4.5) H 04/26/19 05:57 Magnesium 1.90 mg/dL (1.7-2.3) 04/26/19 05:57 Iron 26 ug/dL (49-181) L 04/02/19 05:03 TIBC 138 mcg/dL (250-450) L 04/02/19 05:03 Ferritin 607.0 ng/mL (13.0-400.0) H 04/02/19 05:03 Total Bilirubin 0.40 mg/dL (0.1-1.2) 04/27/19 05:05 Direct Bilirubin 0.4 mg/dL (0-0.2) H 03/31/19 08:20 Indirect Bilirubin 0.1 mg/dL 03/31/19 08:20 AST 14 units/L (5-40) 04/27/19 05:05 ALT 14 units/L (7-56) 04/27/19 05:05 Alkaline Phosphatase 53 units/L (35-129) 04/27/19 05:05 Total Creatine Kinase 62 units/L (55-170) 04/07/19 05:40 CK-MB (CK-2) 54.3 ng/mL (0.0-4.0) H 03/17/19 07:16 CK-MB (CK-2) Rel Index 0.0 (0-4) 03/17/19 07:16 Troponin T 0.058 ng/mL (0.00-0.029) H 03/17/19 07:16 C-Reactive Protein 7.10 mg/dL (0.00-1.30) H 04/17/19 04:15 Serum Total Protein 5.7 g/dL (6.1-8.1) L 04/21/19 04:22 Total Protein 6.2 g/dL (6.3-8.2) L 04/27/19 05:05 Albumin 2.8 g/dL (3.9-5) L 04/27/19 05:05 Albumin/Globulin Ratio 0.8 % 04/27/19 05:05 Qwdcz-1-Pazjpasla 0.5 g/dL (0.2-0.3) H 04/21/19 04:22 Xgkar-4-Qvddogyrk 1.0 g/dL (0.5-0.9) H 04/21/19 04:22 Beta Globulins 0.4 g/dL (0.2-0.5) 04/21/19 04:22 Gamma Globulins 1.1 g/dL (0.8-1.7) 04/21/19 04:22 Abnorm Protein Band 1 see below 04/21/19 04:22 PEP Interpretation see below H 04/21/19 04:22 Triglycerides 309 mg/dL (2-149) H 03/29/19 06:22 Cholesterol 88 mg/dL (50-199) 03/16/19 22:32 LDL Cholesterol Direct 10 mg/dL (50-130) L 03/16/19 22:32 HDL Cholesterol 7 mg/dL (40-59) L 03/16/19 22:32 Cholesterol/HDL Ratio 12.57 % 03/16/19 22:32 Vitamin B12 903.0 pg/mL (211-911) 04/02/19 05:03 Folate 8.05 ng/mL (7.3-26.0) 04/02/19 05:03 Procalcitonin 25.42 ng/mL (<0.15) 03/27/19 19:21 TSH 2.200 mlU/mL (0.270-4.200) 03/16/19 17:05 Free T4 0.72 ng/dL (0.76-1.46) L 03/16/19 17:05 PTH Intact 8.83 pg/mL (15-65) L 04/29/19 14:14 Urine Color Yellow (Yellow) 04/15/19 22:11 Urine Turbidity Clear (Clear) 04/15/19 22:11 Urine pH 6.0 (5.0-7.0) 04/15/19 22:11 Ur Specific [place] 1.010 (1.003-1.030) 04/15/19 22:11 Urine Protein 30 mg/dl mg/dL (Negative) 04/15/19 22:11 Urine Glucose (UA) Neg mg/dL (Negative) 04/15/19 22:11 Urine Ketones Neg mg/dL (Negative) 04/15/19 22:11 Urine Blood Mod (Negative) 04/15/19 22:11 Urine Nitrite Neg (Negative) 04/15/19 22:11 Urine Bilirubin Neg (Negative) 04/15/19 22:11 Urine Urobilinogen < 2.0 mg/dL (<2.0) 04/15/19 22:11 Ur Leukocyte Esterase Neg (Negative) 04/15/19 22:11 Urine WBC (Auto) 4.0 /HPF (0.0-6.0) 04/15/19 22:11 Urine RBC (Auto) 2.0 /HPF (0.0-6.0) 04/15/19 22:11 U Epithel Cells (Auto) < 1.0 /HPF (0-13.0) 04/15/19 22:11 Amorphous Crystals 1+ 04/05/19 16:50 Urine Mucus Few /HPF 03/17/19 16:05 Urine Sperm 2+ /HPF (REMOTE BROADCAST ENGINEER) 03/17/19 16:05 Urine Eosinophils None seen (None Seen) 03/17/19 16:05 Urine Creatinine 106.6 mg/dL (0.1-20.0) H 03/17/19 16:05 Urine Sodium 95 mmol/L 03/17/19 16:05 Vancomycin Trough 11.5 ug/mL (5.0-20.0) 03/18/19 13:19 Random Vancomycin 10.8 ug/mL (0-40.0) 04/14/19 03:55 Salicylates < 0.3 mg/dL (2.8-20.0) L 03/16/19 17:05 Urine Opiates Screen Presumptive negative 03/17/19 16:05 Urine Methadone Screen Presumptive negative 03/17/19 16:05 Acetaminophen < 5.0 ug/mL (10.0-30.0) L 03/16/19 17:05 Ur Barbiturates Screen Presumptive negative 03/17/19 16:05 Ur Phencyclidine Scrn Presumptive negative 03/17/19 16:05 Ur Amphetamines Screen Presumptive negative 03/17/19 16:05 U Benzodiazepines Scrn Presumptive positive 03/17/19 16:05 Urine Cocaine Screen Presumptive negative 03/17/19 16:05 U Marijuana (THC) Screen Presumptive negative 03/17/19 16:05 Drugs of Abuse Note Disclamer 03/17/19 16:05 Plasma/Serum Alcohol < 0.01 % (0-0.07) 03/16/19 17:05 LANDY Screen Negative (Negative) 04/17/19 04:15 Proteinase 3 (PR3) Ab <1.0 AI (<1.0) 04/21/19 04:22 Myeloperoxidase Ab <1.0 AI (<1.0) 04/21/19 04:22 Complement C3 150 mg/dL (82-185) 04/17/19 04:15 Complement C4 37 mg/dL (15-53) 04/17/19 04:15 Hepatitis A IgM Ab Non-reactive (NonReactive) 04/18/19 10:02 Hep Bs Antigen Non-reactive (Negative) 04/18/19 10:02 Hep B Core IgM Ab Non-reactive (NonReactive) 04/18/19 10:02 Hepatitis C Antibody Non-reactive (NonReactive) 04/18/19 10:02 HIV 1&2 Antibody Rapid Non react (Non React) 03/17/19 11:52 HIV P24 Antigen Non react (Non React) 03/17/19 11:52 Influenza A (Rapid) Negative (Negative) 03/17/19 17:00 Influenza B (Rapid) Negative (Negative) 03/17/19 17:00 Group A Strep Rapid Negative (Negative) 03/17/19 17:00 Miscellaneous Test Flexitest 1 03/21/19 12:00 Blood Type A POSITIVE 04/02/19 16:34 Antibody Screen Negative 04/02/19 16:34 Crossmatch See Detail 04/02/19 16:34 Active Medications - Current Medications Current Medications: Generic Name Dose Route Start Last Admin Trade Name Freq PRN Reason Stop Dose Admin Acetaminophen 650 mg 04/02/19 23:26 04/30/19 11:16 Tylenol PO 650 mg Q4H PRN Administration Pain, Mild (1-3),temp>100.5 Al Hydrox/Mg Hydrox/Simethicone 15 ml 04/30/19 15:15 04/30/19 15:53 Alum-Mag Hydrox-Simeth 075-516-67hz/5ml PO 15 ml Q4H PRN Administration Indigestion Albuterol 2.5 mg 03/29/19 13:08 Proventil IH Q4HRT PRN Shortness Of Breath Amiodarone HCl 200 mg 04/15/19 22:00 04/30/19 14:36 Cordarone PO 200 mg BID PAOLO Administration Lipase/Protease/Amylase 1 each 04/20/19 13:17 Pancreaze 10,500 Unit FEEDTUBE PRN PRN For Clogged Feeding Tube Bacitracin 1 applic 04/17/19 08:00 Antibiotic Oint TP Q4H PRN upper lip sore/open Calcitonin [place] 600 unit 04/29/19 11:30 04/30/19 03:54 Miacalcin SUB-Q 04/30/19 23:31 600 unit Q12H PAOLO Administration Dextrose 50 gm 04/17/19 08:00 D50w (25gm) Vial IV Q1H PRN Hypoglycemia Hydralazine HCl 20 mg 04/14/19 03:00 04/14/19 03:11 Apresoline IV 20 mg Q4H PRN Administration hypertemsion Hydrophilic Ointment 1 applic 03/16/19 15:50 04/19/19 18:24 Vaseline Lip Therapy TP 1 applic Q2HR PRN Administration Dry Lips Sodium Chloride 100 mls @ 999 mls/hr 04/20/19 08:41 Nacl 0.9% IV NEYMAR PRN Hypotension Lansoprazole 30 mg 04/11/19 10:00 04/30/19 11:16 Prevacid Solutab FEEDTUBE 30 mg BID PAOLO Administration Melatonin 5 mg 04/26/19 21:00 04/26/19 23:07 Melatonin PO 5 mg QHS PRN Administration Sleep Metoprolol Tartrate 5 mg 04/16/19 22:24 04/22/19 00:20 Lopressor IV 5 mg Q6H PRN Administration For HR >120 Metoprolol Tartrate 25 mg 04/17/19 20:00 04/30/19 14:37 Lopressor PO Not Given TID PAOLO Multi-Ingred Cream/Lotion/Oil/Oint 1 applic 03/16/19 15:50 03/19/19 20:10 Artificial Tears Ophth Oint OU 1 applic Q4HR PRN Administration Dry Eye(s) Simple Syrup 15 ml 04/20/19 13:17 Simple Syrup FEEDTUBE PRN PRN Hypoglycemia Simple Syrup 30 ml 04/20/19 13:29 Simple Syrup FEEDTUBE PRN PRN Hypoglycemia Sodium Bicarbonate 325 mg 04/20/19 13:17 04/27/19 11:03 Sodium Bicarbonate FEEDTUBE 325 mg PRN PRN Administration For Clogged Feeding Tube Sodium Hypochlorite 1 applic 04/18/19 11:00 04/29/19 21:26 Dakin's Half Strength TP 1 applicatio BID PAOLO Administration Nutrition/Malnutrition Assess - Dietary Evaluation Nutrition/Malnutrition Findings: Nutrition Notes Start: 03/17/19 14:22 Freq: Status: Active Protocol: Document 04/30/19 16:38 RM (Rec: 04/30/19 16:43 RM [id number]) Nutrition Notes Initial or Follow up Reassessment Current Diagnosis Acute Kidney Injury,Heart Failure Other Pertinent Diagnosis on HD, Septic shock,Multiple organ failure, encephalopathy, Aspiration pneu Current Diet Mechanical Soft Diet w/Ensure Clear 1 daily Labs/Tests Reviewed Pertinent Medications Reviewed Height 6 ft Weight 146.8 kg [place] Body Weight (kg) 80.90 BMI 43.9 Subjective/Other Information Pt stated that his appetite is good but he is not eating the meals d/t disliking them. Stated that he just drinks the Ensure Clear and eats jello. Noted preferences. Percent of energy/protein needs met: 12%/7% (from Ensure Clear) Burn Absent Trauma Absent Minimum of two criteria No #1 Nutrition Diagnosis Inadequate oral intake Diagnosis Progress(for reassessment Continues documentation) Is patient on ventilator? No Is Patient Ambulatory and/or Out of Bed No REE-([facility]-confined to bed) 2871.756 Kcal/Kg value to use for calculation 14 Approximate Energy Requirements Using 2054 kcal/Kg Calculation Used for Recommendations Kcal/kg Additional Notes Protein: 116-145g (1.2-1.5g/kg , AjdBW 97 kg) Fluids:1 ml/kcal or per MD Nutrition Intervention Change Diet Order: Continue Current Diet Add Supplement/Snack (indicate name/kcal Ensure Clear BID /protein ) Provides kCal: 480 Provides Protein (gm) 16 Goal #1 Meet least 75% of kcal/PRO needs via PO and ONS intakes Anticipated Discharge Needs: Unable to determine at this time Follow-Up By: 05/02/19 Additional Comments Follow for PO and ONS intakes
[2019-05-01 07:21] LABS: Basophils # (Auto) 0.1 K/mm3 (0.0-0.1); Basophils % (Auto) 0.6 % (0.0-1.8); Eosinophils # (Auto) 0.5 K/mm3 (0.0-0.4); Eosinophils % (Auto) 3.4 % (0.0-4.3); Hematocrit 26.2 % (35.5-45.6); Hemoglobin 8.4 gm/dl (11.8-15.2); Lymphocytes # (Auto) 1.3 K/mm3 (1.2-5.4); Lymphocytes % (Auto) 8.4 % (13.4-35.0); Mean Corpuscular HGB Conc 32 % (32-34); Mean Corpuscular Volume 87 fl (84-94); Monocytes # (Auto) 1.4 K/mm3 (0.0-0.8); Monocytes % (Auto) 8.9 % (0.0-7.3); Platelet Count 310 K/mm3 (140-440); Red Blood Count 3.01 M/mm3 (3.65-5.03)
[2019-05-01 07:49] LABS: Calcium 11.2 mg/dL (8.4-10.2)
--- NOTE | 2019-05-01 08:58 | Progress Note ---
Assessment and Plan 1. Acute kidney injury: Vasomotor RUBEN in the setting of shock / volume depletion / Rhabdo. Baseline renal function is unknown. CT abdomen was negative for obstructive nephropathy. Patient was started on hemodialysis on 03/18/19 due to worsening metabolic acidosis and hyperkalemia. Hemodialysis: 03/18, 03/19, 03/20, 03/22, 03/23, 03/24, 03/26, 03/28, 03/29, 03/31, 04/02, 04/04, 04/06, 04/09, 04/11, 04/13, 04/18, 04/20. Monitor for [employer] needs. Renal function continue to improve. Monitor renal function. Avoid nephrotoxic agents. Meds dosage based on GFR. 2. FEN: Hypercalcemia, multifactorial etiology. Contributing factor includes immobilization. Patient previously received high dose Vitamin D and activated Vit.D for hypocalcemia. PTH level low. Ionized Calcium and Vit.D level pending. S/p Pamidronate on 04/26 and Calcitonin. Replete K. Monitor lytes. 3. Septic shock: Currently off pressors. Recurrent fever. Per ID recommendation the dialysis catheter was removed on 04/20. 4. Rhabdomyolysis: Improved. 5. A.fib with RVR: On Amiodarone and Metoprolol. 6. Respiratory failure: Extubated. 7. Severe anemia: S/p PRBC and Epogen. 8. Elevated transaminases: Improved. 9. Encephalopathy: Improved. Examination: General appearance: well-developed, appears stated age, obese, not in distress HEENT: Atraumatic EYES: Pupils reacting to light Neck: supple Respiratory: faint rales noted Cardiology: regular, S1S2 heard, no murmur Gastrointestinal: obese, BS heard, not tender Integumentary: no rash noted Neurologic: alert, follows command, conversing, oriented Ext: L UE edema noted Skin: L elbow area wound Hemodialysis access: None Subjective Date of service: 05/01/19 Principal diagnosis: anemia - DVT rt IJ Interval history: Patient was seen and examined at the bedside. Doing ok. Objective - Vital Signs Vital signs: Vital Signs - 12hr 04/30/19 04/30/19 05/01/19 21:44 22:00 04:31 Temperature 98.2 F 98.4 F Pulse Rate 111 H 85 Respiratory 18 24 Rate Blood Pressure 128/65 113/62 O2 Sat by Pulse 95 96 95 Oximetry - Lab 05/02/19 05:57 05/02/19 05:57 Most recent lab results ABG pH 7.388 pH Units (7.350-7.450) 04/06/19 05:20 ABG pCO2 38.5 mm Hg 04/06/19 05:20 ABG pO2 104.0 mm Hg (80.0-90.0) H 04/06/19 05:20 ABG HCO3 22.6 mmol/L (20.0-26.0) 04/06/19 05:20 ABG O2 Saturation 97.8 % (95.0-99.0) 04/06/19 05:20 Calcium 11.2 mg/dL (8.4-10.2) H 05/01/19 06:52 Phosphorus 5.90 mg/dL (2.5-4.5) H 04/26/19 05:57 Magnesium 1.90 mg/dL (1.7-2.3) 04/26/19 05:57 Urine Creatinine 106.6 mg/dL (0.1-20.0) H 03/17/19 16:05 Urine Sodium 95 mmol/L 03/17/19 16:05 Medications & Allergies - Medications Allergies/Adverse Reactions: Allergies No Known Allergies Allergy (Unverified 03/16/19 17:17) Home Medications: Home Medications Medication Instructions Recorded Confirmed Last Taken Type No Known Home Medications [No 04/28/19 04/28/19 Unknown History Reported Home Medications] Active Medications: Generic Name Dose Route Start Last Admin Trade Name Freq PRN Reason Stop Dose Admin Acetaminophen 650 mg 04/02/19 23:26 04/30/19 11:16 Tylenol PO 650 mg Q4H PRN Administration Pain, Mild (1-3),temp>100.5 Al Hydrox/Mg Hydrox/Simethicone 15 ml 04/30/19 15:15 04/30/19 15:53 Alum-Mag Hydrox-Simeth 862-858-95hs/5ml PO 15 ml Q4H PRN Administration Indigestion Albuterol 2.5 mg 03/29/19 13:08 Proventil IH Q4HRT PRN Shortness Of Breath Amiodarone HCl 200 mg 04/15/19 22:00 04/30/19 22:24 Cordarone PO 200 mg BID PAOLO Administration Lipase/Protease/Amylase 1 each 04/20/19 13:17 Pancrekarly Purcell 10,500 Unit FEEDTUBE PRN PRN For Clogged Feeding Tube Bacitracin 1 applic 04/17/19 08:00 Antibiotic Oint TP Q4H PRN upper lip sore/open Dextrose 50 gm 04/17/19 08:00 D50w (25gm) Vial IV Q1H PRN Hypoglycemia Hydralazine HCl 20 mg 04/14/19 03:00 04/14/19 03:11 Apresoline IV 20 mg Q4H PRN Administration hypertemsion Hydrophilic Ointment 1 applic 03/16/19 15:50 04/19/19 18:24 Vaseline Lip Therapy TP 1 applic Q2HR PRN Administration Dry Lips Sodium Chloride 100 mls @ 999 mls/hr 04/20/19 08:41 Nacl 0.9% IV NEYMAR PRN Hypotension Lansoprazole 30 mg 04/11/19 10:00 04/30/19 22:23 Prevacid Solutab FEEDTUBE 30 mg BID PAOLO Administration Melatonin 5 mg 04/26/19 21:00 04/26/19 23:07 Melatonin PO 5 mg QHS PRN Administration Sleep Metoprolol Tartrate 5 mg 04/16/19 22:24 04/22/19 00:20 Lopressor IV 5 mg Q6H PRN Administration For HR >120 Metoprolol Tartrate 25 mg 04/17/19 20:00 04/30/19 20:04 Lopressor PO 25 mg TID PAOLO Administration Multi-Ingred Cream/Lotion/Oil/Oint 1 applic 03/16/19 15:50 03/19/19 20:10 Artificial Tears Ophth Oint OU 1 applic Q4HR PRN Administration Dry Eye(s) Potassium Chloride 40 meq 05/01/19 09:00 Potassium Chloride PO 05/01/19 15:01 Q6H PAOLO Simple Syrup 15 ml 04/20/19 13:17 Simple Syrup FEEDTUBE PRN PRN Hypoglycemia Simple Syrup 30 ml 04/20/19 13:29 Simple Syrup FEEDTUBE PRN PRN Hypoglycemia Sodium Bicarbonate 325 mg 04/20/19 13:17 04/27/19 11:03 Sodium Bicarbonate FEEDTUBE 325 mg PRN PRN Administration For Clogged Feeding Tube Sodium Hypochlorite 1 applic 04/18/19 11:00 04/30/19 22:23 Dakin's Half Strength TP 1 applicatio BID PAOLO Administration
[2019-05-01] MEDS: METOPROLOL TARTRATE 25 MG TAB PO SCH ×3 (09:24→21:15)
[2019-05-01] MEDS: AMIODARONE 200 MG TAB PO SCH ×2 (10:59→21:16)
[2019-05-01] MEDS: POTASSIUM CHLORIDE 20 MEQ PACKET PO SCH ×2 (10:59→15:57)
[2019-05-01] MEDS: LANSOPRAZOLE 30 MG SOLUTAB FEEDTUBE SCH ×2 (11:05→21:15)
[2019-05-01] MEDS: SODIUM HYPOCHLORITE, DAKIN'S 1/2 STRENGTH (0.25%) 473 ML TOPICAL SOLN TP SCH ×2 (11:20→21:16)
--- NOTE | 2019-05-01 13:39 | Progress Note ---
Assessment and Plan atient moved to the medical floor. Patient awake and more oriented. Patient Presently is 2 litres o2. O2 saturation is 95%. No acute respiratory distress. Patient afebrile and has leukocytosis. Patients heart rate and blood pressure running good. Patients calcium still high, 11.2. Patient receiving normal saline. - Patient Problems (1) Acute respiratory failure Current Visit: Yes Status: Acute Qualifiers: Respiratory failure complication: hypoxia Qualified Code(s): J96.01 - Acute respiratory failure with hypoxia Plan to address problem: O2 2L as needed for shortness of breath or desaturation. Albuterol/atrovent aerosol treatments q 6 hours. Continue Prevacid. Recommend DVT prophylaxis. SCDs (2) Altered mental status Current Visit: Yes Status: Acute Qualifiers: Altered mental status type: unspecified Qualified Code(s): R41.82 - Altered mental status, unspecified Plan to address problem: Management as per primary care and neurology. (3) Atrial fibrillation with RVR Current Visit: Yes Status: Acute Plan to address problem: Management as per cardiology. (4) Cardiopulmonary arrest Current Visit: Yes Status: Acute Plan to address problem: Patient resuscitated. Presently resting on 2 litres o2. (5) Acute renal failure Current Visit: Yes Status: Acute Qualifiers: Acute renal failure type: with acute tubular necrosis Qualified Code(s): N17.0 - Acute kidney failure with tubular necrosis Plan to address problem: Management as per nephrology. (6) Aspiration pneumonia Current Visit: Yes Status: Acute Qualifiers: Aspiration pneumonia type: unspecified Plan to address problem: Patient treated with Azactam and zyvox. (7) GI bleed Current Visit: Yes Status: Acute Plan to address problem: Management as per gastroenterology. Subjective Date of service: 05/01/19 Principal diagnosis: anemia - DVT rt IJ Interval history: Patient moved to the medical floor. Patient awake and more oriented. Patient Presently is 2 litres o2. O2 saturation is 95%. No acute respiratory distress. Patient afebrile and has leukocytosis. Patients heart rate and blood pressure running good. Patients calcium still high, 11.2. Patient receiving normal saline. Objective Vital Signs - 12hr 05/01/19 05/01/19 04:31 09:24 Temperature 98.4 F Pulse Rate 85 Respiratory 24 Rate Blood Pressure 113/62 111/50 O2 Sat by Pulse 95 Oximetry Constitutional: no acute distress, alert Eyes: icteric ENT: oropharynx moist, other (extubated) Neck: supple, no lymphadenopathy, no JVD, other (large neck circumference) Effort: mildly labored Ascultation: Bilateral: diminished breath sounds, rales, rhonchi (scant) Percussion: Bilateral: not dull Cardiovascular: irregular rhythm, other ( S1,S2) Gastrointestinal: hypoactive bowel sounds, soft, non-tender, non-distended, ot her (obese) Integumentary: normal, other (blisters with some weeping over the extremities) Extremities: no cyanosis, pink and warm, pulses normal, no ischemia or petechiae Neurologic: normal mental status, non-focal exam (grossly), pupils equal and round, CN II-XII normal, other (very weak) Psychiatric: mood appropriate, affect normal CBC and BMP: 05/01/19 06:52 05/01/19 06:52 ABG, PT/INR, D-dimer: ABG POC ABG pH 7.401 (7.35-7.45) 04/07/19 12:57 ABG pH 7.388 pH Units (7.350-7.450) 04/06/19 05:20 POC ABG pCO2 41.5 (35-45) 04/07/19 12:57 ABG pCO2 38.5 mm Hg 04/06/19 05:20 POC ABG pO2 107 (80-105) H 04/07/19 12:57 ABG pO2 104.0 mm Hg (80.0-90.0) H 04/06/19 05:20 POC ABG HCO3 25.7 (22-26 mml/L) 04/07/19 12:57 POC ABG Total CO2 27 (23-27mmol/L) 04/07/19 12:57 POC ABG O2 Sat 98 04/07/19 12:57 ABG O2 Saturation 97.8 % (95.0-99.0) 04/06/19 05:20 PT/INR, D-dimer PT 15.3 Sec. (12.2-14.9) H 03/29/19 11:48 INR 1.24 (0.87-1.13) H 03/29/19 11:48 D-Dimer 4845.98 ng/mlDDU (0-234) H 03/28/19 12:00 Abnormal lab findings: Abnormal Labs 03/16/19 03/16/19 03/16/19 15:32 16:03 16:05 WBC 27.0 H RBC 5.55 H Hgb 15.7 H Hct 47.1 H MCV MCHC RDW Plt Count 75 L Lymph % (Auto) [place] % (Auto) Lymph # [place] # Eos # Seg Neutrophils % Seg Neuts % (Manual) 85.0 H Lymphocytes % (Manual) 2.0 L Monocytes % (Manual) Nucleated RBC % Seg Neutrophils # Seg Neutrophils # Man 23.0 H Lymphocytes # (Manual) 0.5 L Monocytes # (Manual) PT INR D-Dimer Heparin Anti-Xa Level POC ABG pH ABG pH POC ABG pCO2 POC ABG pO2 ABG pO2 ABG HCO3 ABG O2 Saturation ABG Base Excess ABG Hemoglobin Oxyhemoglobin Sodium 127 L Potassium Chloride 87.8 L Carbon Dioxide 17 L BUN 49 H Creatinine 5.8 H Glucose 150 H POC Glucose 118 H Lactic Acid Calcium 6.6 L Ionized Calcium Phosphorus Magnesium 1.10 L Iron TIBC Ferritin Total Bilirubin Direct Bilirubin AST ALT Alkaline Phosphatase Total Creatine Kinase 76617 H CK-MB (CK-2) Troponin T C-Reactive Protein Serum Total Protein Total Protein Albumin Hspbc-0-Yxfvbkeam Xnxot-5-Nfrnarqvl PEP Interpretation Triglycerides LDL Cholesterol Direct HDL Cholesterol Free T4 PTH Intact Urine WBC (Auto) Urine Creatinine Salicylates Acetaminophen Crossmatch 03/16/19 03/16/19 03/16/19 16:59 17:05 17:05 WBC RBC Hgb Hct MCV MCHC RDW Plt Count Lymph % (Auto) [place] % (Auto) Lymph # [place] # Eos # Seg Neutrophils % Seg Neuts % (Manual) Lymphocytes % (Manual) Monocytes % (Manual) Nucleated RBC % Seg Neutrophils # Seg Neutrophils # Man Lymphocytes # (Manual) Monocytes # (Manual) PT INR D-Dimer Heparin Anti-Xa Level POC ABG pH 7.297 L ABG pH POC ABG pCO2 33.0 L POC ABG pO2 ABG pO2 ABG HCO3 ABG O2 Saturation ABG Base Excess ABG Hemoglobin Oxyhemoglobin Sodium Potassium Chloride Carbon Dioxide BUN Creatinine Glucose POC Glucose Lactic Acid Calcium Ionized Calcium Phosphorus Magnesium Iron TIBC Ferritin Total Bilirubin Direct Bilirubin AST ALT Alkaline Phosphatase Total Creatine Kinase 63632 H CK-MB (CK-2) 83.1 H Troponin T C-Reactive Protein Serum Total Protein Total Protein Albumin Kcrzx-1-Cwaoabsqs Duapv-2-Hpsqketqn PEP Interpretation Triglycerides LDL Cholesterol Direct HDL Cholesterol Free T4 0.72 L PTH Intact Urine WBC (Auto) Urine Creatinine Salicylates Acetaminophen Crossmatch 03/16/19 03/16/19 03/16/19 17:05 17:05 17:05 WBC RBC Hgb Hct MCV MCHC RDW Plt Count Lymph % (Auto) [place] % (Auto) Lymph # [place] # Eos # Seg Neutrophils % Seg Neuts % (Manual) Lymphocytes % (Manual) Monocytes % (Manual) Nucleated RBC % Seg Neutrophils # Seg Neutrophils # Man Lymphocytes # (Manual) Monocytes # (Manual) PT INR D-Dimer Heparin Anti-Xa Level POC ABG pH ABG pH POC ABG pCO2 POC ABG pO2 ABG pO2 ABG HCO3 ABG O2 Saturation ABG Base Excess ABG Hemoglobin Oxyhemoglobin Sodium Potassium Chloride Carbon Dioxide BUN Creatinine Glucose POC Glucose Lactic Acid 5.10 H* Calcium Ionized Calcium Phosphorus Magnesium Iron TIBC Ferritin Total Bilirubin Direct Bilirubin AST ALT Alkaline Phosphatase Total Creatine Kinase CK-MB (CK-2) Troponin T C-Reactive Protein Serum Total Protein Total Protein Albumin Uxdip-2-Tnooaalff Ldjii-7-Xktqvcdwj PEP Interpretation Triglycerides LDL Cholesterol Direct HDL Cholesterol Free T4 PTH Intact Urine WBC (Auto) Urine Creatinine Salicylates < 0.3 L Acetaminophen < 5.0 L Crossmatch 03/16/19 03/16/19 03/16/19 17:05 17:05 20:35 WBC RBC Hgb Hct MCV MCHC RDW Plt Count Lymph % (Auto) [place] % (Auto) Lymph # [place] # Eos # Seg Neutrophils % Seg Neuts % (Manual) Lymphocytes % (Manual) Monocytes % (Manual) Nucleated RBC % Seg Neutrophils # Seg Neutrophils # Man Lymphocytes # (Manual) Monocytes # (Manual) PT 15.9 H INR 1.30 H D-Dimer Heparin Anti-Xa Level POC ABG pH ABG pH POC ABG pCO2 POC ABG pO2 ABG pO2 ABG HCO3 ABG O2 Saturation ABG Base Excess ABG Hemoglobin Oxyhemoglobin Sodium Potassium Chloride Carbon Dioxide BUN Creatinine Glucose POC Glucose Lactic Acid 3.30 H* Calcium Ionized Calcium Phosphorus Magnesium Iron TIBC Ferritin Total Bilirubin 6.20 H Direct Bilirubin 5.9 H AST 800 H ALT 120 H Alkaline Phosphatase Total Creatine Kinase CK-MB (CK-2) Troponin T C-Reactive Protein Serum Total Protein Total Protein 4.4 L Albumin 2.4 L Kwasf-0-Ndevconqj Yuiyi-2-Jgvpqbyzb PEP Interpretation Triglycerides LDL Cholesterol Direct HDL Cholesterol Free T4 PTH Intact Urine WBC (Auto) Urine Creatinine Salicylates Acetaminophen Crossmatch 03/16/19 03/16/19 03/16/19 21:45 22:32 Unknown WBC RBC Hgb Hct MCV MCHC RDW Plt Count Lymph % (Auto) [place] % (Auto) Lymph # [place] # Eos # Seg Neutrophils % Seg Neuts % (Manual) Lymphocytes % (Manual) Monocytes % (Manual) Nucleated RBC % Seg Neutrophils # Seg Neutrophils # Man Lymphocytes # (Manual) Monocytes # (Manual) PT INR D-Dimer Heparin Anti-Xa Level POC ABG pH ABG pH POC ABG pCO2 POC ABG pO2 ABG pO2 ABG HCO3 ABG O2 Saturation ABG Base Excess ABG Hemoglobin Oxyhemoglobin Sodium Potassium Chloride Carbon Dioxide BUN Creatinine Glucose POC Glucose Lactic Acid 3.30 H* 3.00 H* Calcium Ionized Calcium Phosphorus Magnesium Iron TIBC Ferritin Total Bilirubin Direct Bilirubin AST ALT Alkaline Phosphatase Total Creatine Kinase CK-MB (CK-2) Troponin T 0.047 H D C-Reactive Protein Serum Total Protein Total Protein Albumin Hlihi-4-Igzjkgmez Akyuw-9-Ngewrlioz PEP Interpretation Triglycerides 395 H LDL Cholesterol Direct 10 L HDL Cholesterol 7 L Free T4 PTH Intact Urine WBC (Auto) Urine Creatinine Salicylates Acetaminophen Crossmatch 03/17/19 03/17/19 03/17/19 03:45 03:45 03:45 WBC RBC Hgb Hct MCV MCHC RDW Plt Count Lymph % (Auto) [place] % (Auto) Lymph # [place] # Eos # Seg Neutrophils % Seg Neuts % (Manual) Lymphocytes % (Manual) Monocytes % (Manual) Nucleated RBC % Seg Neutrophils # Seg Neutrophils # Man Lymphocytes # (Manual) Monocytes # (Manual) PT INR D-Dimer Heparin Anti-Xa Level POC ABG pH ABG pH POC ABG pCO2 POC ABG pO2 ABG pO2 ABG HCO3 ABG O2 Saturation ABG Base Excess ABG Hemoglobin Oxyhemoglobin Sodium 131 L Potassium Chloride 88.9 L Carbon Dioxide BUN 53 H Creatinine 7.1 H Glucose POC Glucose Lactic Acid 4.10 H* Calcium 5.4 L* D Ionized Calcium Phosphorus 7.30 H Magnesium 1.60 L Iron TIBC Ferritin Total Bilirubin 5.90 H Direct Bilirubin AST 801 H ALT 109 H Alkaline Phosphatase Total Creatine Kinase 24130 H 23692 H CK-MB (CK-2) 41.5 H Troponin T 0.054 H C-Reactive Protein Serum Total Protein Total Protein 4.5 L Albumin 2.0 L Jctmi-8-Oxrhjvhyk Iujrh-4-Haagkoygp PEP Interpretation Triglycerides LDL Cholesterol Direct HDL Cholesterol Free T4 PTH Intact Urine WBC (Auto) Urine Creatinine Salicylates Acetaminophen Crossmatch 03/17/19 03/17/19 03/17/19 05:47 07:16 07:16 WBC RBC Hgb Hct MCV MCHC RDW Plt Count Lymph % (Auto) [place] % (Auto) Lymph # [place] # Eos # Seg Neutrophils % Seg Neuts % (Manual) Lymphocytes % (Manual) Monocytes % (Manual) Nucleated RBC % Seg Neutrophils # Seg Neutrophils # Man Lymphocytes # (Manual) Monocytes # (Manual) PT INR D-Dimer Heparin Anti-Xa Level POC ABG pH 7.193 L ABG pH POC ABG pCO2 45.2 H POC ABG pO2 65 L ABG pO2 ABG HCO3 ABG O2 Saturation ABG Base Excess ABG Hemoglobin Oxyhemoglobin Sodium Potassium Chloride Carbon Dioxide BUN Creatinine Glucose POC Glucose Lactic Acid 5.50 H* Calcium Ionized Calcium Phosphorus Magnesium Iron TIBC Ferritin Total Bilirubin Direct Bilirubin AST ALT Alkaline Phosphatase Total Creatine Kinase 21712 H CK-MB (CK-2) 54.3 H Troponin T 0.058 H C-Reactive Protein Serum Total Protein Total Protein Albumin Xlcev-3-Kzynckxaw Ykfqh-4-Rrbhxhrge PEP Interpretation Triglycerides LDL Cholesterol Direct HDL Cholesterol Free T4 PTH Intact Urine WBC (Auto) Urine Creatinine Salicylates Acetaminophen Crossmatch 03/17/19 03/17/19 03/17/19 11:52 12:51 13:01 WBC RBC Hgb Hct MCV MCHC RDW Plt Count Lymph % (Auto) [place] % (Auto) Lymph # [place] # Eos # Seg Neutrophils % Seg Neuts % (Manual) Lymphocytes % (Manual) Monocytes % (Manual) Nucleated RBC % Seg Neutrophils # Seg Neutrophils # Man Lymphocytes # (Manual) Monocytes # (Manual) PT INR D-Dimer Heparin Anti-Xa Level POC ABG pH 7.154 L ABG pH POC ABG pCO2 34.3 L POC ABG pO2 73 L ABG pO2 ABG HCO3 ABG O2 Saturation ABG Base Excess ABG Hemoglobin Oxyhemoglobin Sodium Potassium Chloride Carbon Dioxide BUN Creatinine Glucose POC Glucose 60 L Lactic Acid 8.20 H* Calcium Ionized Calcium Phosphorus Magnesium Iron TIBC Ferritin Total Bilirubin Direct Bilirubin AST ALT Alkaline Phosphatase Total Creatine Kinase CK-MB (CK-2) Troponin T C-Reactive Protein Serum Total Protein Total Protein Albumin Qmold-5-Pfobcjmla Nwnkt-9-Zictqeeqf PEP Interpretation Triglycerides LDL Cholesterol Direct HDL Cholesterol Free T4 PTH Intact Urine WBC (Auto) Urine Creatinine Salicylates Acetaminophen Crossmatch 03/17/19 03/17/19 03/17/19 14:37 14:37 14:37 WBC 29.3 H RBC Hgb Hct MCV MCHC RDW 15.8 H Plt Count 45 L Lymph % (Auto) [place] % (Auto) Lymph # [place] # Eos # Seg Neutrophils % Seg Neuts % (Manual) 81.0 H Lymphocytes % (Manual) 1.0 L Monocytes % (Manual) 15.0 H Nucleated RBC % Seg Neutrophils # Seg Neutrophils # Man 23.7 H Lymphocytes # (Manual) 0.3 L Monocytes # (Manual) 4.4 H PT INR D-Dimer Heparin Anti-Xa Level POC ABG pH ABG pH POC ABG pCO2 POC ABG pO2 ABG pO2 ABG HCO3 ABG O2 Saturation ABG Base Excess ABG Hemoglobin Oxyhemoglobin Sodium Potassium Chloride Carbon Dioxide BUN Creatinine Glucose POC Glucose Lactic Acid 4.90 H* Calcium Ionized Calcium Phosphorus Magnesium Iron TIBC Ferritin Total Bilirubin Direct Bilirubin AST ALT Alkaline Phosphatase Total Creatine Kinase CK-MB (CK-2) Troponin T C-Reactive Protein 24.90 H Serum Total Protein Total Protein Albumin Vhfhl-4-Jxwqzbvwq Ucmkv-2-Tfsfoypho PEP Interpretation Triglycerides LDL Cholesterol Direct HDL Cholesterol Free T4 PTH Intact Urine WBC (Auto) Urine Creatinine Salicylates Acetaminophen Crossmatch 03/17/19 03/17/19 03/17/19 16:05 16:05 17:02 WBC RBC Hgb Hct MCV MCHC RDW Plt Count Lymph % (Auto) [place] % (Auto) Lymph # [place] # Eos # Seg Neutrophils % Seg Neuts % (Manual) Lymphocytes % (Manual) Monocytes % (Manual) Nucleated RBC % Seg Neutrophils # Seg Neutrophils # Man Lymphocytes # (Manual) Monocytes # (Manual) PT INR D-Dimer Heparin Anti-Xa Level POC ABG pH 7.183 L ABG pH POC ABG pCO2 POC ABG pO2 65 L ABG pO2 ABG HCO3 ABG O2 Saturation ABG Base Excess ABG Hemoglobin Oxyhemoglobin Sodium Potassium Chloride Carbon Dioxide BUN Creatinine Glucose POC Glucose Lactic Acid Calcium Ionized Calcium Phosphorus Magnesium Iron TIBC Ferritin Total Bilirubin Direct Bilirubin AST ALT Alkaline Phosphatase Total Creatine Kinase CK-MB (CK-2) Troponin T C-Reactive Protein Serum Total Protein Total Protein Albumin Fqdyu-6-Nypnbwlik Xweqz-9-Jfsjifndu PEP Interpretation Triglycerides LDL Cholesterol Direct HDL Cholesterol Free T4 PTH Intact Urine WBC (Auto) 30.0 H Urine Creatinine 106.6 H Salicylates Acetaminophen Crossmatch 03/18/19 03/18/19 03/18/19 05:12 05:16 05:53 WBC RBC Hgb Hct MCV MCHC RDW Plt Count Lymph % (Auto) [place] % (Auto) Lymph # [place] # Eos # Seg Neutrophils % Seg Neuts % (Manual) Lymphocytes % (Manual) Monocytes % (Manual) Nucleated RBC % Seg Neutrophils # Seg Neutrophils # Man Lymphocytes # (Manual) Monocytes # (Manual) PT INR D-Dimer Heparin Anti-Xa Level POC ABG pH 7.257 L ABG pH POC ABG pCO2 31.6 L POC ABG pO2 69 L ABG pO2 ABG HCO3 ABG O2 Saturation ABG Base Excess ABG Hemoglobin Oxyhemoglobin Sodium Potassium Chloride Carbon Dioxide BUN Creatinine Glucose POC Glucose 141 H Lactic Acid 5.00 H* Calcium Ionized Calcium Phosphorus Magnesium Iron TIBC Ferritin Total Bilirubin Direct Bilirubin AST ALT Alkaline Phosphatase Total Creatine Kinase CK-MB (CK-2) Troponin T C-Reactive Protein Serum Total Protein Total Protein Albumin Fmfib-1-Iznaqohye Ezqke-8-Kyaaoqfpn PEP Interpretation Triglycerides LDL Cholesterol Direct HDL Cholesterol Free T4 PTH Intact Urine WBC (Auto) Urine Creatinine Salicylates Acetaminophen Crossmatch 03/18/19 03/18/19 03/18/19 06:57 08:40 08:40 WBC 31.7 H RBC Hgb Hct MCV MCHC RDW 15.5 H Plt Count 35 L Lymph % (Auto) [place] % (Auto) Lymph # [place] # Eos # Seg Neutrophils % Seg Neuts % (Manual) Lymphocytes % (Manual) Monocytes % (Manual) Nucleated RBC % Seg Neutrophils # Seg Neutrophils # Man Lymphocytes # (Manual) Monocytes # (Manual) PT INR D-Dimer Heparin Anti-Xa Level POC ABG pH ABG pH POC ABG pCO2 POC ABG pO2 ABG pO2 ABG HCO3 ABG O2 Saturation ABG Base Excess ABG Hemoglobin Oxyhemoglobin Sodium 132 L Potassium 5.5 H D Chloride 88.5 L Carbon Dioxide 18 L BUN 71 H Creatinine 8.1 H Glucose 205 H POC Glucose Lactic Acid 5.00 H* Calcium 4.1 L* D Ionized Calcium Phosphorus Magnesium 2.40 H Iron TIBC Ferritin Total Bilirubin 7.50 H Direct Bilirubin AST 1088 H ALT 159 H Alkaline Phosphatase 190 H Total Creatine Kinase 685446 H CK-MB (CK-2) Troponin T C-Reactive Protein Serum Total Protein Total Protein 4.7 L Albumin 1.8 L Rrshy-1-Cweezehyv Xwpys-3-Skxljgzqi PEP Interpretation Triglycerides LDL Cholesterol Direct HDL Cholesterol Free T4 PTH Intact Urine WBC (Auto) Urine Creatinine Salicylates Acetaminophen Crossmatch 03/18/19 03/18/19 03/18/19 12:33 12:50 13:19 WBC RBC Hgb Hct MCV MCHC RDW Plt Count Lymph % (Auto) [place] % (Auto) Lymph # [place] # Eos # Seg Neutrophils % Seg Neuts % (Manual) Lymphocytes % (Manual) Monocytes % (Manual) Nucleated RBC % Seg Neutrophils # Seg Neutrophils # Man Lymphocytes # (Manual) Monocytes # (Manual) PT INR D-Dimer Heparin Anti-Xa Level POC ABG pH 7.282 L ABG pH POC ABG pCO2 POC ABG pO2 67 L ABG pO2 ABG HCO3 ABG O2 Saturation ABG Base Excess ABG Hemoglobin Oxyhemoglobin Sodium Potassium Chloride Carbon Dioxide BUN Creatinine Glucose POC Glucose 129 H Lactic Acid 3.30 H* Calcium Ionized Calcium Phosphorus Magnesium Iron TIBC Ferritin Total Bilirubin Direct Bilirubin AST ALT Alkaline Phosphatase Total Creatine Kinase CK-MB (CK-2) Troponin T C-Reactive Protein Serum Total Protein Total Protein Albumin Ucuck-9-Fcxydfbyd Leibw-3-Edkijktlx PEP Interpretation Triglycerides LDL Cholesterol Direct HDL Cholesterol Free T4 PTH Intact Urine WBC (Auto) Urine Creatinine Salicylates Acetaminophen Crossmatch 03/18/19 03/18/19 03/18/19 13:19 16:50 18:11 WBC RBC Hgb Hct MCV MCHC RDW Plt Count Lymph % (Auto) [place] % (Auto) Lymph # [place] # Eos # Seg Neutrophils % Seg Neuts % (Manual) Lymphocytes % (Manual) Monocytes % (Manual) Nucleated RBC % Seg Neutrophils # Seg Neutrophils # Man Lymphocytes # (Manual) Monocytes # (Manual) PT INR D-Dimer Heparin Anti-Xa Level POC ABG pH ABG pH POC ABG pCO2 POC ABG pO2 59 L ABG pO2 ABG HCO3 ABG O2 Saturation ABG Base Excess ABG Hemoglobin Oxyhemoglobin Sodium Potassium Chloride Carbon Dioxide BUN Creatinine Glucose POC Glucose 151 H Lactic Acid Calcium 4.2 L* Ionized Calcium Phosphorus Magnesium Iron TIBC Ferritin Total Bilirubin Direct Bilirubin AST ALT Alkaline Phosphatase Total Creatine Kinase 806928 H CK-MB (CK-2) Troponin T C-Reactive Protein Serum Total Protein Total Protein Albumin Umhab-5-Nddpqaebd Ocaoi-2-Sohicpbwm PEP Interpretation Triglycerides LDL Cholesterol Direct HDL Cholesterol Free T4 PTH Intact Urine WBC (Auto) Urine Creatinine Salicylates Acetaminophen Crossmatch 03/18/19 03/18/19 03/19/19 18:20 23:39 01:42 WBC RBC Hgb Hct MCV MCHC RDW Plt Count Lymph % (Auto) [place] % (Auto) Lymph # [place] # Eos # Seg Neutrophils % Seg Neuts % (Manual) Lymphocytes % (Manual) Monocytes % (Manual) Nucleated RBC % Seg Neutrophils # Seg Neutrophils # Man Lymphocytes # (Manual) Monocytes # (Manual) PT INR D-Dimer Heparin Anti-Xa Level POC ABG pH 7.345 L ABG pH 7.285 L POC ABG pCO2 POC ABG pO2 59 L ABG pO2 44.0 L ABG HCO3 ABG O2 Saturation 70.9 L ABG Base Excess -5.7 L ABG Hemoglobin 11.9 L Oxyhemoglobin 69.6 L Sodium Potassium Chloride Carbon Dioxide BUN Creatinine Glucose POC Glucose 152 H Lactic Acid Calcium Ionized Calcium Phosphorus Magnesium Iron TIBC Ferritin Total Bilirubin Direct Bilirubin AST ALT Alkaline Phosphatase Total Creatine Kinase CK-MB (CK-2) Troponin T C-Reactive Protein Serum Total Protein Total Protein Albumin Kzqli-3-Ptgeuzgdc Hghor-8-Kpoiqwybg PEP Interpretation Triglycerides LDL Cholesterol Direct HDL Cholesterol Free T4 PTH Intact Urine WBC (Auto) Urine Creatinine Salicylates Acetaminophen Crossmatch 03/19/19 03/19/19 03/19/19 04:00 04:00 05:35 WBC 36.5 H RBC Hgb Hct MCV MCHC RDW 15.8 H Plt Count 35 L Lymph % (Auto) [place] % (Auto) Lymph # [place] # Eos # Seg Neutrophils % Seg Neuts % (Manual) Lymphocytes % (Manual) Monocytes % (Manual) Nucleated RBC % Seg Neutrophils # Seg Neutrophils # Man Lymphocytes # (Manual) Monocytes # (Manual) PT INR D-Dimer Heparin Anti-Xa Level POC ABG pH ABG pH 7.265 L POC ABG pCO2 POC ABG pO2 ABG pO2 35.4 L* ABG HCO3 ABG O2 Saturation 54.4 L ABG Base Excess -6.7 L ABG Hemoglobin 12.9 L Oxyhemoglobin 53.4 L Sodium 132 L Potassium 5.7 H Chloride 89.8 L Carbon Dioxide 19 L BUN 62 H Creatinine 6.4 H Glucose 151 H POC Glucose Lactic Acid Calcium 5.2 L* D Ionized Calcium Phosphorus Magnesium Iron TIBC Ferritin Total Bilirubin 7.80 H Direct Bilirubin AST 682 H ALT 130 H Alkaline Phosphatase 167 H Total Creatine Kinase CK-MB (CK-2) Troponin T C-Reactive Protein Serum Total Protein Total Protein 4.8 L Albumin 2.3 L Scrhb-0-Xvwzauygz Koitj-8-Sejgpujty PEP Interpretation Triglycerides LDL Cholesterol Direct HDL Cholesterol Free T4 PTH Intact Urine WBC (Auto) Urine Creatinine Salicylates Acetaminophen Crossmatch 03/19/19 03/19/19 03/19/19 05:49 09:16 09:50 WBC RBC Hgb Hct MCV MCHC RDW Plt Count Lymph % (Auto) [place] % (Auto) Lymph # [place] # Eos # Seg Neutrophils % Seg Neuts % (Manual) Lymphocytes % (Manual) Monocytes % (Manual) Nucleated RBC % Seg Neutrophils # Seg Neutrophils # Man Lymphocytes # (Manual) Monocytes # (Manual) PT INR D-Dimer Heparin Anti-Xa Level POC ABG pH 7.222 L ABG pH POC ABG pCO2 56.6 H POC ABG pO2 ABG pO2 ABG HCO3 ABG O2 Saturation ABG Base Excess ABG Hemoglobin Oxyhemoglobin Sodium Potassium Chloride Carbon Dioxide BUN Creatinine Glucose POC Glucose 154 H Lactic Acid 2.70 H* Calcium Ionized Calcium Phosphorus Magnesium Iron TIBC Ferritin Total Bilirubin Direct Bilirubin AST ALT Alkaline Phosphatase Total Creatine Kinase CK-MB (CK-2) Troponin T C-Reactive Protein Serum Total Protein Total Protein Albumin Sdkdu-0-Rocajqtsa Zfvca-2-Imxzwvqzj PEP Interpretation Triglycerides LDL Cholesterol Direct HDL Cholesterol Free T4 PTH Intact Urine WBC (Auto) Urine Creatinine Salicylates Acetaminophen Crossmatch 03/19/19 03/19/19 03/19/19 09:50 11:28 17:58 WBC RBC Hgb Hct MCV MCHC RDW Plt Count Lymph % (Auto) [place] % (Auto) Lymph # [place] # Eos # Seg Neutrophils % Seg Neuts % (Manual) Lymphocytes % (Manual) Monocytes % (Manual) Nucleated RBC % Seg Neutrophils # Seg Neutrophils # Man Lymphocytes # (Manual) Monocytes # (Manual) PT INR D-Dimer Heparin Anti-Xa Level POC ABG pH 7.250 L ABG pH POC ABG pCO2 52.6 H POC ABG pO2 ABG pO2 ABG HCO3 ABG O2 Saturation ABG Base Excess ABG Hemoglobin Oxyhemoglobin Sodium Potassium Chloride Carbon Dioxide BUN Creatinine Glucose POC Glucose 160 H Lactic Acid Calcium Ionized Calcium Phosphorus Magnesium Iron TIBC Ferritin Total Bilirubin Direct Bilirubin AST ALT Alkaline Phosphatase Total Creatine Kinase 18272 H CK-MB (CK-2) Troponin T C-Reactive Protein Serum Total Protein Total Protein Albumin Bdjcd-2-Noztygybq Ahcit-8-Mfakbfrqy PEP Interpretation Triglycerides LDL Cholesterol Direct HDL Cholesterol Free T4 PTH Intact Urine WBC (Auto) Urine Creatinine Salicylates Acetaminophen Crossmatch 03/19/19 03/19/19 03/20/19 19:48 21:03 02:16 WBC RBC Hgb Hct MCV MCHC RDW Plt Count Lymph % (Auto) [place] % (Auto) Lymph # [place] # Eos # Seg Neutrophils % Seg Neuts % (Manual) Lymphocytes % (Manual) Monocytes % (Manual) Nucleated RBC % Seg Neutrophils # Seg Neutrophils # Man Lymphocytes # (Manual) Monocytes # (Manual) PT INR D-Dimer Heparin Anti-Xa Level POC ABG pH 7.279 L ABG pH POC ABG pCO2 50.3 H POC ABG pO2 129 H ABG pO2 ABG HCO3 ABG O2 Saturation ABG Base Excess ABG Hemoglobin Oxyhemoglobin Sodium Potassium Chloride Carbon Dioxide BUN Creatinine Glucose POC Glucose 119 H 119 H Lactic Acid Calcium Ionized Calcium Phosphorus Magnesium Iron TIBC Ferritin Total Bilirubin Direct Bilirubin AST ALT Alkaline Phosphatase Total Creatine Kinase CK-MB (CK-2) Troponin T C-Reactive Protein Serum Total Protein Total Protein Albumin Agnje-0-Vxhwqkjkl Qwaxn-7-Zurqajwix PEP Interpretation Triglycerides LDL Cholesterol Direct HDL Cholesterol Free T4 PTH Intact Urine WBC (Auto) Urine Creatinine Salicylates Acetaminophen Crossmatch 03/20/19 03/20/19 03/20/19 04:23 05:05 09:30 WBC 36.3 H RBC Hgb Hct MCV MCHC RDW 15.5 H Plt Count 29 L Lymph % (Auto) [place] % (Auto) Lymph # [place] # Eos # Seg Neutrophils % Seg Neuts % (Manual) Lymphocytes % (Manual) Monocytes % (Manual) Nucleated RBC % Seg Neutrophils # Seg Neutrophils # Man Lymphocytes # (Manual) Monocytes # (Manual) PT INR D-Dimer Heparin Anti-Xa Level POC ABG pH ABG pH POC ABG pCO2 POC ABG pO2 280 H ABG pO2 ABG HCO3 ABG O2 Saturation ABG Base Excess ABG Hemoglobin Oxyhemoglobin Sodium Potassium Chloride Carbon Dioxide BUN Creatinine Glucose POC Glucose 115 H Lactic Acid Calcium Ionized Calcium Phosphorus Magnesium Iron TIBC Ferritin Total Bilirubin Direct Bilirubin AST ALT Alkaline Phosphatase Total Creatine Kinase CK-MB (CK-2) Troponin T C-Reactive Protein Serum Total Protein Total Protein Albumin Owocl-4-Cvhujjtwt Dvhty-7-Bgvnzfzoi PEP Interpretation Triglycerides LDL Cholesterol Direct HDL Cholesterol Free T4 PTH Intact Urine WBC (Auto) Urine Creatinine Salicylates Acetaminophen Crossmatch 03/20/19 03/20/19 03/20/19 09:30 09:30 11:34 WBC RBC Hgb Hct MCV MCHC RDW Plt Count Lymph % (Auto) [place] % (Auto) Lymph # [place] # Eos # Seg Neutrophils % Seg Neuts % (Manual) Lymphocytes % (Manual) Monocytes % (Manual) Nucleated RBC % Seg Neutrophils # Seg Neutrophils # Man Lymphocytes # (Manual) Monocytes # (Manual) PT INR D-Dimer Heparin Anti-Xa Level POC ABG pH ABG pH POC ABG pCO2 POC ABG pO2 ABG pO2 ABG HCO3 ABG O2 Saturation ABG Base Excess ABG Hemoglobin Oxyhemoglobin Sodium 131 L Potassium Chloride 92.3 L Carbon Dioxide 20 L BUN 68 H Creatinine 6.1 H Glucose 164 H POC Glucose 141 H Lactic Acid Calcium 5.3 L* Ionized Calcium Phosphorus Magnesium Iron TIBC Ferritin Total Bilirubin 9.50 H Direct Bilirubin AST 381 H ALT 116 H Alkaline Phosphatase 255 H Total Creatine Kinase 45423 H CK-MB (CK-2) Troponin T C-Reactive Protein Serum Total Protein Total Protein 5.1 L Albumin 2.3 L Ovstz-8-Xpxjcrheg Mxjzu-2-Axjkxsrpi PEP Interpretation Triglycerides LDL Cholesterol Direct HDL Cholesterol Free T4 PTH Intact Urine WBC (Auto) Urine Creatinine Salicylates Acetaminophen Crossmatch 03/20/19 03/20/19 03/20/19 14:41 14:45 18:50 WBC RBC Hgb Hct MCV MCHC RDW Plt Count Lymph % (Auto) [place] % (Auto) Lymph # [place] # Eos # Seg Neutrophils % Seg Neuts % (Manual) Lymphocytes % (Manual) Monocytes % (Manual) Nucleated RBC % Seg Neutrophils # Seg Neutrophils # Man Lymphocytes # (Manual) Monocytes # (Manual) PT INR D-Dimer Heparin Anti-Xa Level POC ABG pH ABG pH POC ABG pCO2 POC ABG pO2 ABG pO2 ABG HCO3 ABG O2 Saturation ABG Base Excess ABG Hemoglobin Oxyhemoglobin Sodium Potassium Chloride Carbon Dioxide BUN Creatinine Glucose POC Glucose 117 H Lactic Acid 2.90 H* Calcium Ionized Calcium Phosphorus Magnesium Iron TIBC Ferritin Total Bilirubin Direct Bilirubin AST ALT Alkaline Phosphatase Total Creatine Kinase CK-MB (CK-2) Troponin T C-Reactive Protein 13.30 H Serum Total Protein Total Protein Albumin Okqbj-1-Grmwfwkex Efuks-0-Bcetwrtnv PEP Interpretation Triglycerides LDL Cholesterol Direct HDL Cholesterol Free T4 PTH Intact Urine WBC (Auto) Urine Creatinine Salicylates Acetaminophen Crossmatch 03/20/19 03/21/19 03/21/19 21:55 04:26 04:26 WBC 37.8 H RBC Hgb Hct MCV MCHC RDW 15.4 H Plt Count 36 L Lymph % (Auto) [place] % (Auto) Lymph # [place] # Eos # Seg Neutrophils % Seg Neuts % (Manual) 93.0 H Lymphocytes % (Manual) 3.0 L Monocytes % (Manual) Nucleated RBC % 1.0 H Seg Neutrophils # 34.6 H Seg Neutrophils # Man 35.2 H Lymphocytes # (Manual) 1.1 L Monocytes # (Manual) PT INR D-Dimer Heparin Anti-Xa Level POC ABG pH ABG pH POC ABG pCO2 POC ABG pO2 ABG pO2 ABG HCO3 ABG O2 Saturation ABG Base Excess ABG Hemoglobin Oxyhemoglobin Sodium 131 L Potassium Chloride 90.7 L Carbon Dioxide 21 L BUN 69 H Creatinine 5.7 H Glucose 170 H POC Glucose 128 H Lactic Acid Calcium 6.1 L D Ionized Calcium Phosphorus Magnesium Iron TIBC Ferritin Total Bilirubin 9.50 H Direct Bilirubin AST 308 H ALT 124 H Alkaline Phosphatase 327 H Total Creatine Kinase 58655 H CK-MB (CK-2) Troponin T C-Reactive Protein Serum Total Protein Total Protein 5.7 L Albumin 2.6 L Swdud-2-Dyulefdry Kiqyz-4-Dkojaqonu PEP Interpretation Triglycerides LDL Cholesterol Direct HDL Cholesterol Free T4 PTH Intact Urine WBC (Auto) Urine Creatinine Salicylates Acetaminophen Crossmatch 03/21/19 03/21/19 03/21/19 05:17 05:39 08:29 WBC RBC Hgb Hct MCV MCHC RDW Plt Count Lymph % (Auto) [place] % (Auto) Lymph # [place] # Eos # Seg Neutrophils % Seg Neuts % (Manual) Lymphocytes % (Manual) Monocytes % (Manual) Nucleated RBC % Seg Neutrophils # Seg Neutrophils # Man Lymphocytes # (Manual) Monocytes # (Manual) PT INR D-Dimer Heparin Anti-Xa Level POC ABG pH ABG pH POC ABG pCO2 POC ABG pO2 209 H ABG pO2 ABG HCO3 ABG O2 Saturation ABG Base Excess ABG Hemoglobin Oxyhemoglobin Sodium Potassium Chloride Carbon Dioxide BUN Creatinine Glucose POC Glucose 145 H Lactic Acid Calcium Ionized Calcium Phosphorus Magnesium Iron TIBC Ferritin Total Bilirubin Direct Bilirubin AST ALT Alkaline Phosphatase Total Creatine Kinase 51036 H CK-MB (CK-2) Troponin T C-Reactive Protein Serum Total Protein Total Protein Albumin Trevw-0-Xslbyxwms Omjbw-2-Shcstwngu PEP Interpretation Triglycerides LDL Cholesterol Direct HDL Cholesterol Free T4 PTH Intact Urine WBC (Auto) Urine Creatinine Salicylates Acetaminophen Crossmatch 03/21/19 03/21/19 03/21/19 08:29 11:43 12:00 WBC RBC Hgb Hct MCV MCHC RDW Plt Count Lymph % (Auto) [place] % (Auto) Lymph # [place] # Eos # Seg Neutrophils % Seg Neuts % (Manual) Lymphocytes % (Manual) Monocytes % (Manual) Nucleated RBC % Seg Neutrophils # Seg Neutrophils # Man Lymphocytes # (Manual) Monocytes # (Manual) PT INR D-Dimer Heparin Anti-Xa Level POC ABG pH ABG pH POC ABG pCO2 POC ABG pO2 ABG pO2 ABG HCO3 ABG O2 Saturation ABG Base Excess ABG Hemoglobin Oxyhemoglobin Sodium Potassium Chloride Carbon Dioxide BUN Creatinine Glucose POC Glucose 123 H Lactic Acid 2.60 H* 2.20 H* Calcium Ionized Calcium Phosphorus Magnesium Iron TIBC Ferritin Total Bilirubin Direct Bilirubin AST ALT Alkaline Phosphatase Total Creatine Kinase CK-MB (CK-2) Troponin T C-Reactive Protein Serum Total Protein Total Protein Albumin Epntt-7-Iwrvgfefz Xitey-1-Cstzxvigt PEP Interpretation Triglycerides LDL Cholesterol Direct HDL Cholesterol Free T4 PTH Intact Urine WBC (Auto) Urine Creatinine Salicylates Acetaminophen Crossmatch 03/21/19 03/21/19 03/21/19 14:11 18:28 19:32 WBC RBC Hgb Hct MCV MCHC RDW Plt Count Lymph % (Auto) [place] % (Auto) Lymph # [place] # Eos # Seg Neutrophils % Seg Neuts % (Manual) Lymphocytes % (Manual) Monocytes % (Manual) Nucleated RBC % Seg Neutrophils # Seg Neutrophils # Man Lymphocytes # (Manual) Monocytes # (Manual) PT INR D-Dimer Heparin Anti-Xa Level POC ABG pH 7.293 L ABG pH POC ABG pCO2 POC ABG pO2 ABG pO2 ABG HCO3 ABG O2 Saturation ABG Base Excess ABG Hemoglobin Oxyhemoglobin Sodium Potassium Chloride Carbon Dioxide BUN Creatinine Glucose POC Glucose 153 H Lactic Acid 2.10 H* Calcium Ionized Calcium Phosphorus Magnesium Iron TIBC Ferritin Total Bilirubin Direct Bilirubin AST ALT Alkaline Phosphatase Total Creatine Kinase CK-MB (CK-2) Troponin T C-Reactive Protein Serum Total Protein Total Protein Albumin Ytrst-3-Kseqqeyks Mamxe-5-Wcudvojly PEP Interpretation Triglycerides LDL Cholesterol Direct HDL Cholesterol Free T4 PTH Intact Urine WBC (Auto) Urine Creatinine Salicylates Acetaminophen Crossmatch 03/21/19 03/22/19 03/22/19 23:38 05:08 05:51 WBC RBC Hgb Hct MCV MCHC RDW Plt Count Lymph % (Auto) [place] % (Auto) Lymph # [place] # Eos # Seg Neutrophils % Seg Neuts % (Manual) Lymphocytes % (Manual) Monocytes % (Manual) Nucleated RBC % Seg Neutrophils # Seg Neutrophils # Man Lymphocytes # (Manual) Monocytes # (Manual) PT INR D-Dimer Heparin Anti-Xa Level POC ABG pH 7.283 L ABG pH POC ABG pCO2 POC ABG pO2 53 L ABG pO2 ABG HCO3 ABG O2 Saturation ABG Base Excess ABG Hemoglobin Oxyhemoglobin Sodium Potassium Chloride Carbon Dioxide BUN Creatinine Glucose POC Glucose 149 H 131 H Lactic Acid Calcium Ionized Calcium Phosphorus Magnesium Iron TIBC Ferritin Total Bilirubin Direct Bilirubin AST ALT Alkaline Phosphatase Total Creatine Kinase CK-MB (CK-2) Troponin T C-Reactive Protein Serum Total Protein Total Protein Albumin Dmthf-6-Gqnwyvhyo Zvpeb-9-Mklercfom PEP Interpretation Triglycerides LDL Cholesterol Direct HDL Cholesterol Free T4 PTH Intact Urine WBC (Auto) Urine Creatinine Salicylates Acetaminophen Crossmatch 03/22/19 03/22/19 03/22/19 08:00 08:00 18:19 WBC 36.7 H RBC Hgb 11.0 L Hct 33.5 L MCV MCHC RDW 15.5 H Plt Count 43 L Lymph % (Auto) [place] % (Auto) Lymph # [place] # Eos # Seg Neutrophils % Seg Neuts % (Manual) 87.0 H Lymphocytes % (Manual) 7.0 L Monocytes % (Manual) Nucleated RBC % Seg Neutrophils # Seg Neutrophils # Man 31.9 H Lymphocytes # (Manual) Monocytes # (Manual) PT INR D-Dimer Heparin Anti-Xa Level POC ABG pH ABG pH POC ABG pCO2 46.4 H POC ABG pO2 108 H ABG pO2 ABG HCO3 ABG O2 Saturation ABG Base Excess ABG Hemoglobin Oxyhemoglobin Sodium 132 L Potassium 5.6 H Chloride 89.6 L Carbon Dioxide 20 L BUN 101 H Creatinine 7.4 H Glucose 124 H POC Glucose Lactic Acid Calcium 5.2 L* Ionized Calcium Phosphorus Magnesium Iron TIBC Ferritin Total Bilirubin 2.80 H Direct Bilirubin AST 119 H ALT 86 H Alkaline Phosphatase 245 H Total Creatine Kinase CK-MB (CK-2) Troponin T C-Reactive Protein Serum Total Protein Total Protein 5.6 L Albumin 2.5 L Bsocn-7-Xcyleynxl Amlob-1-Ffzvvnjos PEP Interpretation Triglycerides LDL Cholesterol Direct HDL Cholesterol Free T4 PTH Intact Urine WBC (Auto) Urine Creatinine Salicylates Acetaminophen Crossmatch 03/22/19 03/23/19 03/23/19 20:37 04:49 05:28 WBC 35.9 H RBC Hgb 10.8 L Hct 33.2 L MCV MCHC RDW 15.5 H Plt Count 49 L Lymph % (Auto) [place] % (Auto) Lymph # [place] # Eos # Seg Neutrophils % Seg Neuts % (Manual) 81.0 H Lymphocytes % (Manual) 3.5 L Monocytes % (Manual) Nucleated RBC % Seg Neutrophils # Seg Neutrophils # Man 29.1 H Lymphocytes # (Manual) Monocytes # (Manual) 1.4 H PT INR D-Dimer Heparin Anti-Xa Level POC ABG pH 7.296 L ABG pH POC ABG pCO2 46.2 H POC ABG pO2 ABG pO2 ABG HCO3 ABG O2 Saturation ABG Base Excess ABG Hemoglobin Oxyhemoglobin Sodium 129 L Potassium 5.2 H Chloride 91.1 L Carbon Dioxide BUN 91 H Creatinine 6.6 H Glucose 190 H POC Glucose Lactic Acid Calcium 5.3 L* Ionized Calcium Phosphorus Magnesium Iron TIBC Ferritin Total Bilirubin 1.80 H Direct Bilirubin AST 80 H ALT 62 H Alkaline Phosphatase 209 H Total Creatine Kinase 9758 H CK-MB (CK-2) Troponin T C-Reactive Protein Serum Total Protein Total Protein 5.2 L Albumin 2.2 L Twmou-6-Nuymviwql Fcnxt-4-Gpnprqpnc PEP Interpretation Triglycerides LDL Cholesterol Direct HDL Cholesterol Free T4 PTH Intact Urine WBC (Auto) Urine Creatinine Salicylates Acetaminophen Crossmatch 03/23/19 03/23/19 03/23/19 05:28 05:31 11:33 WBC 29.7 H RBC 3.59 L Hgb 10.1 L Hct 31.1 L MCV MCHC RDW 15.4 H Plt Count 47 L Lymph % (Auto) [place] % (Auto) Lymph # [place] # Eos # Seg Neutrophils % Seg Neuts % (Manual) 89.0 H Lymphocytes % (Manual) 6.0 L Monocytes % (Manual) Nucleated RBC % 1.0 H Seg Neutrophils # Seg Neutrophils # Man 26.4 H Lymphocytes # (Manual) Monocytes # (Manual) PT INR D-Dimer Heparin Anti-Xa Level POC ABG pH ABG pH POC ABG pCO2 POC ABG pO2 ABG pO2 ABG HCO3 ABG O2 Saturation ABG Base Excess ABG Hemoglobin Oxyhemoglobin Sodium Potassium Chloride Carbon Dioxide BUN Creatinine Glucose POC Glucose 122 H 113 H Lactic Acid Calcium Ionized Calcium Phosphorus Magnesium Iron TIBC Ferritin Total Bilirubin Direct Bilirubin AST ALT Alkaline Phosphatase Total Creatine Kinase CK-MB (CK-2) Troponin T C-Reactive Protein Serum Total Protein Total Protein Albumin Fyrjz-3-Eimbghaxn Kfsrr-7-Diyowjnog PEP Interpretation Triglycerides LDL Cholesterol Direct HDL Cholesterol Free T4 PTH Intact Urine WBC (Auto) Urine Creatinine Salicylates Acetaminophen Crossmatch 03/23/19 03/24/19 03/24/19 17:47 00:00 04:50 WBC 35.0 H RBC Hgb 10.4 L Hct 32.4 L MCV MCHC RDW Plt Count 60 L Lymph % (Auto) [place] % (Auto) Lymph # [place] # Eos # Seg Neutrophils % Seg Neuts % (Manual) 93.0 H Lymphocytes % (Manual) 5.0 L Monocytes % (Manual) Nucleated RBC % 7.0 H Seg Neutrophils # Seg Neutrophils # Man 32.6 H Lymphocytes # (Manual) Monocytes # (Manual) PT INR D-Dimer Heparin Anti-Xa Level POC ABG pH ABG pH POC ABG pCO2 POC ABG pO2 ABG pO2 ABG HCO3 ABG O2 Saturation ABG Base Excess ABG Hemoglobin Oxyhemoglobin Sodium Potassium Chloride Carbon Dioxide BUN Creatinine Glucose POC Glucose 111 H 108 H Lactic Acid Calcium Ionized Calcium Phosphorus Magnesium Iron TIBC Ferritin Total Bilirubin Direct Bilirubin AST ALT Alkaline Phosphatase Total Creatine Kinase CK-MB (CK-2) Troponin T C-Reactive Protein Serum Total Protein Total Protein Albumin Vxotc-5-Vagfotiwk Tuutl-7-Rmeqedfya PEP Interpretation Triglycerides LDL Cholesterol Direct HDL Cholesterol Free T4 PTH Intact Urine WBC (Auto) Urine Creatinine Salicylates Acetaminophen Crossmatch 03/24/19 03/24/19 03/24/19 04:50 05:06 12:55 WBC RBC Hgb Hct MCV MCHC RDW Plt Count Lymph % (Auto) [place] % (Auto) Lymph # [place] # Eos # Seg Neutrophils % Seg Neuts % (Manual) Lymphocytes % (Manual) Monocytes % (Manual) Nucleated RBC % Seg Neutrophils # Seg Neutrophils # Man Lymphocytes # (Manual) Monocytes # (Manual) PT INR D-Dimer Heparin Anti-Xa Level POC ABG pH ABG pH POC ABG pCO2 POC ABG pO2 ABG pO2 ABG HCO3 ABG O2 Saturation ABG Base Excess ABG Hemoglobin Oxyhemoglobin Sodium 134 L Potassium 5.1 H Chloride 95.3 L Carbon Dioxide 21 L BUN 85 H Creatinine 6.4 H Glucose 109 H POC Glucose 112 H 110 H Lactic Acid Calcium 5.8 L* Ionized Calcium Phosphorus Magnesium Iron TIBC Ferritin Total Bilirubin Direct Bilirubin AST ALT Alkaline Phosphatase Total Creatine Kinase 5747 H CK-MB (CK-2) Troponin T C-Reactive Protein Serum Total Protein Total Protein Albumin Lrtyn-4-Mazhjdfjd Dkccz-6-Qxybifydt PEP Interpretation Triglycerides LDL Cholesterol Direct HDL Cholesterol Free T4 PTH Intact Urine WBC (Auto) Urine Creatinine Salicylates Acetaminophen Crossmatch 03/24/19 03/25/19 03/25/19 23:29 05:00 05:00 WBC RBC Hgb Hct MCV MCHC RDW Plt Count Lymph % (Auto) [place] % (Auto) Lymph # [place] # Eos # Seg Neutrophils % Seg Neuts % (Manual) Lymphocytes % (Manual) Monocytes % (Manual) Nucleated RBC % Seg Neutrophils # Seg Neutrophils # Man Lymphocytes # (Manual) Monocytes # (Manual) PT INR D-Dimer Heparin Anti-Xa Level POC ABG pH ABG pH POC ABG pCO2 POC ABG pO2 ABG pO2 ABG HCO3 ABG O2 Saturation ABG Base Excess ABG Hemoglobin Oxyhemoglobin Sodium 133 L Potassium Chloride 94.0 L Carbon Dioxide 21 L BUN 81 H Creatinine 6.4 H Glucose POC Glucose 109 H Lactic Acid Calcium 5.5 L* Ionized Calcium Phosphorus Magnesium Iron TIBC Ferritin Total Bilirubin Direct Bilirubin AST 80 H ALT Alkaline Phosphatase 202 H Total Creatine Kinase 3589 H CK-MB (CK-2) Troponin T C-Reactive Protein Serum Total Protein Total Protein 5.3 L Albumin 2.4 L Mzqpz-3-Xumxvrmoa Yidmt-4-Lewlqkjlg PEP Interpretation Triglycerides LDL Cholesterol Direct HDL Cholesterol Free T4 PTH Intact 329.9 H Urine WBC (Auto) Urine Creatinine Salicylates Acetaminophen Crossmatch 03/25/19 03/25/19 03/26/19 05:00 06:30 04:30 WBC 23.3 H RBC 3.61 L Hgb 10.2 L Hct 31.2 L MCV MCHC RDW Plt Count 57 L Lymph % (Auto) [place] % (Auto) Lymph # [place] # Eos # Seg Neutrophils % Seg Neuts % (Manual) 92.0 H Lymphocytes % (Manual) 6.0 L Monocytes % (Manual) Nucleated RBC % Seg Neutrophils # Seg Neutrophils # Man 21.4 H Lymphocytes # (Manual) Monocytes # (Manual) PT INR D-Dimer Heparin Anti-Xa Level POC ABG pH ABG pH 7.326 L POC ABG pCO2 POC ABG pO2 ABG pO2 109.5 H 137.4 H ABG HCO3 18.8 L 18.6 L ABG O2 Saturation ABG Base Excess -4.4 L -6.8 L ABG Hemoglobin 10.1 L 9.9 L Oxyhemoglobin Sodium Potassium Chloride Carbon Dioxide BUN Creatinine Glucose POC Glucose Lactic Acid Calcium Ionized Calcium Phosphorus Magnesium Iron TIBC Ferritin Total Bilirubin Direct Bilirubin AST ALT Alkaline Phosphatase Total Creatine Kinase CK-MB (CK-2) Troponin T C-Reactive Protein Serum Total Protein Total Protein Albumin Fwgeg-2-Acfmguvvj Titqz-4-Gqqdbvlzg PEP Interpretation Triglycerides LDL Cholesterol Direct HDL Cholesterol Free T4 PTH Intact Urine WBC (Auto) Urine Creatinine Salicylates Acetaminophen Crossmatch 03/26/19 03/26/19 03/26/19 23:22 Unknown Unknown WBC 19.5 H RBC 3.44 L Hgb 9.8 L Hct 29.9 L MCV MCHC RDW Plt Count 85 L Lymph % (Auto) [place] % (Auto) Lymph # [place] # Eos # Seg Neutrophils % Seg Neuts % (Manual) 95.0 H Lymphocytes % (Manual) 3.0 L Monocytes % (Manual) Nucleated RBC % Seg Neutrophils # Seg Neutrophils # Man 18.5 H Lymphocytes # (Manual) 0.6 L Monocytes # (Manual) PT INR D-Dimer Heparin Anti-Xa Level POC ABG pH ABG pH POC ABG pCO2 POC ABG pO2 ABG pO2 ABG HCO3 ABG O2 Saturation ABG Base Excess ABG Hemoglobin Oxyhemoglobin Sodium 135 L Potassium 5.2 H D Chloride 92.2 L Carbon Dioxide 18 L BUN 109 H Creatinine 8.5 H Glucose 117 H POC Glucose 69 L Lactic Acid Calcium 4.5 L* D Ionized Calcium Phosphorus Magnesium Iron TIBC Ferritin Total Bilirubin Direct Bilirubin AST ALT Alkaline Phosphatase Total Creatine Kinase 4527 H CK-MB (CK-2) Troponin T C-Reactive Protein Serum Total Protein Total Protein Albumin Spkgh-5-Wtquxjllb Wiond-0-Kqezxxphz PEP Interpretation Triglycerides LDL Cholesterol Direct HDL Cholesterol Free T4 PTH Intact Urine WBC (Auto) Urine Creatinine Salicylates Acetaminophen Crossmatch 03/27/19 03/27/19 03/27/19 04:30 04:30 09:00 WBC 19.2 H RBC 3.42 L Hgb 9.9 L Hct 30.0 L MCV MCHC RDW Plt Count 84 L Lymph % (Auto) [place] % (Auto) Lymph # [place] # Eos # Seg Neutrophils % Seg Neuts % (Manual) Lymphocytes % (Manual) Monocytes % (Manual) Nucleated RBC % Seg Neutrophils # Seg Neutrophils # Man Lymphocytes # (Manual) Monocytes # (Manual) PT INR D-Dimer Heparin Anti-Xa Level POC ABG pH ABG pH POC ABG pCO2 POC ABG pO2 ABG pO2 ABG HCO3 ABG O2 Saturation ABG Base Excess ABG Hemoglobin Oxyhemoglobin Sodium 135 L Potassium Chloride 93.5 L Carbon Dioxide BUN 84 H Creatinine 7.1 H Glucose POC Glucose Lactic Acid Calcium 5.0 L* Ionized Calcium Phosphorus Magnesium Iron TIBC Ferritin Total Bilirubin Direct Bilirubin AST 78 H ALT Alkaline Phosphatase 135 H Total Creatine Kinase 4677 H CK-MB (CK-2) Troponin T C-Reactive Protein Serum Total Protein Total Protein 4.8 L Albumin 2.3 L Bhfmm-9-Vacvedtnb Gemfc-8-Wgfdnefcz PEP Interpretation Triglycerides 409 H LDL Cholesterol Direct HDL Cholesterol Free T4 PTH Intact Urine WBC (Auto) Urine Creatinine Salicylates Acetaminophen Crossmatch 03/27/19 03/27/19 03/27/19 12:37 14:15 14:15 WBC RBC Hgb 9.7 L Hct 29.5 L MCV MCHC RDW Plt Count 87 L Lymph % (Auto) [place] % (Auto) Lymph # [place] # Eos # Seg Neutrophils % Seg Neuts % (Manual) Lymphocytes % (Manual) Monocytes % (Manual) Nucleated RBC % Seg Neutrophils # Seg Neutrophils # Man Lymphocytes # (Manual) Monocytes # (Manual) PT 15.9 H INR 1.30 H D-Dimer Heparin Anti-Xa Level POC ABG pH ABG pH POC ABG pCO2 POC ABG pO2 ABG pO2 ABG HCO3 ABG O2 Saturation ABG Base Excess ABG Hemoglobin Oxyhemoglobin Sodium Potassium Chloride Carbon Dioxide BUN Creatinine Glucose POC Glucose 129 H Lactic Acid Calcium Ionized Calcium Phosphorus Magnesium Iron TIBC Ferritin Total Bilirubin Direct Bilirubin AST ALT Alkaline Phosphatase Total Creatine Kinase CK-MB (CK-2) Troponin T C-Reactive Protein Serum Total Protein Total Protein Albumin Eiait-5-Vtlrcbwjj Xoraj-8-Prvlpphnd PEP Interpretation Triglycerides LDL Cholesterol Direct HDL Cholesterol Free T4 PTH Intact Urine WBC (Auto) Urine Creatinine Salicylates Acetaminophen Crossmatch 03/27/19 03/27/19 03/27/19 18:00 19:22 19:23 WBC RBC Hgb Hct MCV MCHC RDW Plt Count Lymph % (Auto) [place] % (Auto) Lymph # [place] # Eos # Seg Neutrophils % Seg Neuts % (Manual) Lymphocytes % (Manual) Monocytes % (Manual) Nucleated RBC % Seg Neutrophils # Seg Neutrophils # Man Lymphocytes # (Manual) Monocytes # (Manual) PT INR D-Dimer Heparin Anti-Xa Level < 0.10 L POC ABG pH ABG pH POC ABG pCO2 POC ABG pO2 ABG pO2 ABG HCO3 ABG O2 Saturation ABG Base Excess ABG Hemoglobin Oxyhemoglobin Sodium Potassium Chloride Carbon Dioxide BUN Creatinine Glucose POC Glucose 121 H Lactic Acid Calcium Ionized Calcium Phosphorus Magnesium Iron TIBC Ferritin Total Bilirubin Direct Bilirubin AST ALT Alkaline Phosphatase Total Creatine Kinase 4517 H CK-MB (CK-2) Troponin T C-Reactive Protein Serum Total Protein Total Protein Albumin Tnvic-7-Zerbplssn Gpcox-5-Lditdmyqx PEP Interpretation Triglycerides LDL Cholesterol Direct HDL Cholesterol Free T4 PTH Intact Urine WBC (Auto) Urine Creatinine Salicylates Acetaminophen Crossmatch 03/27/19 03/27/19 03/28/19 22:10 23:52 03:49 WBC RBC Hgb Hct MCV MCHC RDW Plt Count Lymph % (Auto) [place] % (Auto) Lymph # [place] # Eos # Seg Neutrophils % Seg Neuts % (Manual) Lymphocytes % (Manual) Monocytes % (Manual) Nucleated RBC % Seg Neutrophils # Seg Neutrophils # Man Lymphocytes # (Manual) Monocytes # (Manual) PT INR D-Dimer Heparin Anti-Xa Level POC ABG pH 7.338 L ABG pH POC ABG pCO2 33.1 L POC ABG pO2 ABG pO2 ABG HCO3 ABG O2 Saturation ABG Base Excess ABG Hemoglobin Oxyhemoglobin Sodium Potassium Chloride Carbon Dioxide BUN Creatinine Glucose POC Glucose 113 H 117 H Lactic Acid Calcium Ionized Calcium Phosphorus Magnesium Iron TIBC Ferritin Total Bilirubin Direct Bilirubin AST ALT Alkaline Phosphatase Total Creatine Kinase CK-MB (CK-2) Troponin T C-Reactive Protein Serum Total Protein Total Protein Albumin Bzjns-1-Kseqqpojt Taroo-0-Totuwpmqr PEP Interpretation Triglycerides LDL Cholesterol Direct HDL Cholesterol Free T4 PTH Intact Urine WBC (Auto) Urine Creatinine Salicylates Acetaminophen Crossmatch 03/28/19 03/28/19 03/28/19 05:13 05:13 06:18 WBC RBC Hgb Hct MCV MCHC RDW Plt Count Lymph % (Auto) [place] % (Auto) Lymph # [place] # Eos # Seg Neutrophils % Seg Neuts % (Manual) Lymphocytes % (Manual) Monocytes % (Manual) Nucleated RBC % Seg Neutrophils # Seg Neutrophils # Man Lymphocytes # (Manual) Monocytes # (Manual) PT INR D-Dimer Heparin Anti-Xa Level 0.23 L POC ABG pH ABG pH POC ABG pCO2 POC ABG pO2 ABG pO2 ABG HCO3 ABG O2 Saturation ABG Base Excess ABG Hemoglobin Oxyhemoglobin Sodium 135 L Potassium 5.5 H D Chloride 95.1 L Carbon Dioxide 16 L D BUN 129 H Creatinine 9.3 H Glucose 158 H POC Glucose 202 H Lactic Acid Calcium 4.0 L* D Ionized Calcium Phosphorus 12.40 H Magnesium Iron TIBC Ferritin Total Bilirubin Direct Bilirubin AST ALT Alkaline Phosphatase Total Creatine Kinase 4266 H CK-MB (CK-2) Troponin T C-Reactive Protein Serum Total Protein Total Protein Albumin Zmpmi-5-Zozknikcb Oyhkt-1-Cgobnyxtu PEP Interpretation Triglycerides LDL Cholesterol Direct HDL Cholesterol Free T4 PTH Intact Urine WBC (Auto) Urine Creatinine Salicylates Acetaminophen Crossmatch 03/28/19 03/28/19 03/28/19 08:25 10:00 12:00 WBC RBC Hgb 4.9 L* D Hct 15.4 L* D MCV MCHC RDW Plt Count Lymph % (Auto) [place] % (Auto) Lymph # [place] # Eos # Seg Neutrophils % Seg Neuts % (Manual) Lymphocytes % (Manual) Monocytes % (Manual) Nucleated RBC % Seg Neutrophils # Seg Neutrophils # Man Lymphocytes # (Manual) Monocytes # (Manual) PT 17.9 H INR 1.52 H D-Dimer 4845.98 H Heparin Anti-Xa Level POC ABG pH ABG pH POC ABG pCO2 POC ABG pO2 ABG pO2 ABG HCO3 ABG O2 Saturation ABG Base Excess ABG Hemoglobin Oxyhemoglobin Sodium Potassium Chloride Carbon Dioxide BUN Creatinine Glucose POC Glucose Lactic Acid Calcium Ionized Calcium Phosphorus Magnesium Iron TIBC Ferritin Total Bilirubin Direct Bilirubin AST ALT Alkaline Phosphatase Total Creatine Kinase CK-MB (CK-2) Troponin T C-Reactive Protein Serum Total Protein Total Protein Albumin Yvvib-3-Kmpehszfz Uapko-5-Eobayioau PEP Interpretation Triglycerides LDL Cholesterol Direct HDL Cholesterol Free T4 PTH Intact Urine WBC (Auto) Urine Creatinine Salicylates Acetaminophen Crossmatch See Detail 03/28/19 03/28/19 03/28/19 12:28 14:10 17:43 WBC RBC Hgb 5.9 L* Hct 18.3 L* MCV MCHC RDW Plt Count Lymph % (Auto) [place] % (Auto) Lymph # [place] # Eos # Seg Neutrophils % Seg Neuts % (Manual) Lymphocytes % (Manual) Monocytes % (Manual) Nucleated RBC % Seg Neutrophils # Seg Neutrophils # Man Lymphocytes # (Manual) Monocytes # (Manual) PT INR D-Dimer Heparin Anti-Xa Level POC ABG pH ABG pH POC ABG pCO2 POC ABG pO2 ABG pO2 ABG HCO3 ABG O2 Saturation ABG Base Excess ABG Hemoglobin Oxyhemoglobin Sodium Potassium Chloride Carbon Dioxide BUN Creatinine Glucose POC Glucose 153 H 159 H Lactic Acid Calcium Ionized Calcium Phosphorus Magnesium Iron TIBC Ferritin Total Bilirubin Direct Bilirubin AST ALT Alkaline Phosphatase Total Creatine Kinase CK-MB (CK-2) Troponin T C-Reactive Protein Serum Total Protein Total Protein Albumin Sodrl-9-Wjheaghes Maejs-6-Wdjlgjxng PEP Interpretation Triglycerides LDL Cholesterol Direct HDL Cholesterol Free T4 PTH Intact Urine WBC (Auto) Urine Creatinine Salicylates Acetaminophen Crossmatch 03/28/19 03/28/19 03/28/19 18:10 Unknown 23:59 WBC 24.8 H RBC 3.42 L Hgb 10.2 L D Hct 31.1 L D MCV MCHC RDW 15.4 H Plt Count 54 L Lymph % (Auto) [place] % (Auto) Lymph # [place] # Eos # Seg Neutrophils % Seg Neuts % (Manual) 91.0 H Lymphocytes % (Manual) 8.0 L Monocytes % (Manual) Nucleated RBC % Seg Neutrophils # Seg Neutrophils # Man 22.6 H Lymphocytes # (Manual) Monocytes # (Manual) PT INR D-Dimer Heparin Anti-Xa Level POC ABG pH ABG pH POC ABG pCO2 POC ABG pO2 ABG pO2 ABG HCO3 ABG O2 Saturation ABG Base Excess ABG Hemoglobin Oxyhemoglobin Sodium Potassium 5.7 H Chloride Carbon Dioxide BUN Creatinine Glucose POC Glucose 107 H Lactic Acid Calcium Ionized Calcium Phosphorus Magnesium Iron TIBC Ferritin Total Bilirubin Direct Bilirubin AST ALT Alkaline Phosphatase Total Creatine Kinase CK-MB (CK-2) Troponin T C-Reactive Protein Serum Total Protein Total Protein Albumin Wrtpv-2-Eesoibylb Iicss-0-Egzbegdaw PEP Interpretation Triglycerides LDL Cholesterol Direct HDL Cholesterol Free T4 PTH Intact Urine WBC (Auto) Urine Creatinine Salicylates Acetaminophen Crossmatch 03/29/19 03/29/19 03/29/19 04:29 05:46 06:22 WBC RBC Hgb 8.6 L Hct 25.7 L MCV MCHC RDW Plt Count 93 L Lymph % (Auto) [place] % (Auto) Lymph # [place] # Eos # Seg Neutrophils % Seg Neuts % (Manual) Lymphocytes % (Manual) Monocytes % (Manual) Nucleated RBC % Seg Neutrophils # Seg Neutrophils # Man Lymphocytes # (Manual) Monocytes # (Manual) PT INR D-Dimer Heparin Anti-Xa Level POC ABG pH ABG pH POC ABG pCO2 32.2 L POC ABG pO2 ABG pO2 ABG HCO3 ABG O2 Saturation ABG Base Excess ABG Hemoglobin Oxyhemoglobin Sodium Potassium Chloride Carbon Dioxide BUN Creatinine Glucose POC Glucose 113 H Lactic Acid Calcium Ionized Calcium Phosphorus Magnesium Iron TIBC Ferritin Total Bilirubin Direct Bilirubin AST ALT Alkaline Phosphatase Total Creatine Kinase CK-MB (CK-2) Troponin T C-Reactive Protein Serum Total Protein Total Protein Albumin Dhzyj-7-Oapankazt Dkldl-6-Kogviqlpp PEP Interpretation Triglycerides LDL Cholesterol Direct HDL Cholesterol Free T4 PTH Intact Urine WBC (Auto) Urine Creatinine Salicylates Acetaminophen Crossmatch 03/29/19 03/29/19 03/29/19 06:22 06:22 06:22 WBC 23.2 H RBC 2.91 L Hgb 8.6 L Hct 25.8 L MCV MCHC RDW Plt Count 91 L Lymph % (Auto) [place] % (Auto) Lymph # [place] # Eos # Seg Neutrophils % Seg Neuts % (Manual) Lymphocytes % (Manual) Monocytes % (Manual) Nucleated RBC % Seg Neutrophils # Seg Neutrophils # Man Lymphocytes # (Manual) Monocytes # (Manual) PT INR D-Dimer Heparin Anti-Xa Level POC ABG pH ABG pH POC ABG pCO2 POC ABG pO2 ABG pO2 ABG HCO3 ABG O2 Saturation ABG Base Excess ABG Hemoglobin Oxyhemoglobin Sodium 133 L Potassium Chloride 93.8 L Carbon Dioxide 18 L BUN 109 H Creatinine 7.4 H Glucose 124 H POC Glucose Lactic Acid Calcium 4.6 L* Ionized Calcium Phosphorus Magnesium Iron TIBC Ferritin Total Bilirubin Direct Bilirubin AST ALT Alkaline Phosphatase Total Creatine Kinase 3401 H CK-MB (CK-2) Troponin T C-Reactive Protein Serum Total Protein Total Protein Albumin Skzsb-6-Cccmbnuud Gvspu-5-Pojnadkjs PEP Interpretation Triglycerides 309 H LDL Cholesterol Direct HDL Cholesterol Free T4 PTH Intact Urine WBC (Auto) Urine Creatinine Salicylates Acetaminophen Crossmatch 03/29/19 03/29/19 03/29/19 11:48 11:48 18:24 WBC RBC Hgb 7.8 L Hct 23.2 L MCV MCHC RDW Plt Count Lymph % (Auto) [place] % (Auto) Lymph # [place] # Eos # Seg Neutrophils % Seg Neuts % (Manual) Lymphocytes % (Manual) Monocytes % (Manual) Nucleated RBC % Seg Neutrophils # Seg Neutrophils # Man Lymphocytes # (Manual) Monocytes # (Manual) PT 15.3 H INR 1.24 H D-Dimer Heparin Anti-Xa Level POC ABG pH ABG pH POC ABG pCO2 POC ABG pO2 ABG pO2 ABG HCO3 ABG O2 Saturation ABG Base Excess ABG Hemoglobin Oxyhemoglobin Sodium Potassium Chloride Carbon Dioxide BUN Creatinine Glucose POC Glucose 122 H Lactic Acid Calcium Ionized Calcium Phosphorus Magnesium Iron TIBC Ferritin Total Bilirubin Direct Bilirubin AST ALT Alkaline Phosphatase Total Creatine Kinase CK-MB (CK-2) Troponin T C-Reactive Protein Serum Total Protein Total Protein Albumin Tlmtf-9-Tlmxnycqa Zvphs-5-Vflxxicqe PEP Interpretation Triglycerides LDL Cholesterol Direct HDL Cholesterol Free T4 PTH Intact Urine WBC (Auto) Urine Creatinine Salicylates Acetaminophen Crossmatch 03/30/19 03/30/19 03/30/19 00:40 04:31 05:04 WBC RBC Hgb 7.6 L Hct 23.0 L MCV MCHC RDW Plt Count Lymph % (Auto) [place] % (Auto) Lymph # [place] # Eos # Seg Neutrophils % Seg Neuts % (Manual) Lymphocytes % (Manual) Monocytes % (Manual) Nucleated RBC % Seg Neutrophils # Seg Neutrophils # Man Lymphocytes # (Manual) Monocytes # (Manual) PT INR D-Dimer Heparin Anti-Xa Level POC ABG pH 7.346 L ABG pH POC ABG pCO2 POC ABG pO2 62 L ABG pO2 ABG HCO3 ABG O2 Saturation ABG Base Excess ABG Hemoglobin Oxyhemoglobin Sodium Potassium Chloride Carbon Dioxide BUN 79 H Creatinine 6.4 H Glucose POC Glucose Lactic Acid Calcium 6.1 L D Ionized Calcium Phosphorus Magnesium Iron TIBC Ferritin Total Bilirubin Direct Bilirubin AST ALT Alkaline Phosphatase Total Creatine Kinase CK-MB (CK-2) Troponin T C-Reactive Protein Serum Total Protein Total Protein Albumin Cqwze-8-Knvfxkvef Dslxo-4-Oszitfrqh PEP Interpretation Triglycerides LDL Cholesterol Direct HDL Cholesterol Free T4 PTH Intact Urine WBC (Auto) Urine Creatinine Salicylates Acetaminophen Crossmatch 03/30/19 03/30/19 03/30/19 08:45 12:09 22:43 WBC 14.3 H RBC 2.33 L Hgb 7.0 L 7.4 L Hct 21.0 L 22.3 L MCV MCHC RDW 15.6 H Plt Count 135 L Lymph % (Auto) [place] % (Auto) Lymph # [place] # Eos # Seg Neutrophils % Seg Neuts % (Manual) Lymphocytes % (Manual) Monocytes % (Manual) Nucleated RBC % Seg Neutrophils # Seg Neutrophils # Man Lymphocytes # (Manual) Monocytes # (Manual) PT INR D-Dimer Heparin Anti-Xa Level POC ABG pH ABG pH POC ABG pCO2 POC ABG pO2 ABG pO2 ABG HCO3 ABG O2 Saturation ABG Base Excess ABG Hemoglobin Oxyhemoglobin Sodium Potassium Chloride Carbon Dioxide BUN Creatinine Glucose POC Glucose Lactic Acid Calcium Ionized Calcium 3.7 L Phosphorus Magnesium Iron TIBC Ferritin Total Bilirubin Direct Bilirubin AST ALT Alkaline Phosphatase Total Creatine Kinase CK-MB (CK-2) Troponin T C-Reactive Protein Serum Total Protein Total Protein Albumin Xuyli-5-Dmbqkacht Ktlka-5-Oqrdbzptr PEP Interpretation Triglycerides LDL Cholesterol Direct HDL Cholesterol Free T4 PTH Intact Urine WBC (Auto) Urine Creatinine Salicylates Acetaminophen Crossmatch 03/30/19 03/30/19 03/31/19 23:38 Unknown 04:44 WBC 11.5 H RBC 2.40 L Hgb 7.3 L Hct 21.9 L MCV MCHC RDW 15.4 H Plt Count Lymph % (Auto) 10.6 L [place] % (Auto) Lymph # [place] # Eos # Seg Neutrophils % 81.7 H Seg Neuts % (Manual) Lymphocytes % (Manual) Monocytes % (Manual) Nucleated RBC % Seg Neutrophils # 9.4 H Seg Neutrophils # Man Lymphocytes # (Manual) Monocytes # (Manual) PT INR D-Dimer Heparin Anti-Xa Level POC ABG pH ABG pH POC ABG pCO2 POC ABG pO2 ABG pO2 ABG HCO3 ABG O2 Saturation ABG Base Excess ABG Hemoglobin Oxyhemoglobin Sodium Potassium Chloride Carbon Dioxide BUN Creatinine Glucose POC Glucose 155 H Lactic Acid Calcium Ionized Calcium Phosphorus Magnesium Iron TIBC Ferritin Total Bilirubin Direct Bilirubin 0.4 H AST 63 H ALT Alkaline Phosphatase Total Creatine Kinase CK-MB (CK-2) Troponin T C-Reactive Protein Serum Total Protein Total Protein 4.9 L Albumin 2.2 L Sillv-5-Yapfzuvmv Saecm-8-Jjdvtwvds PEP Interpretation Triglycerides LDL Cholesterol Direct HDL Cholesterol Free T4 PTH Intact Urine WBC (Auto) Urine Creatinine Salicylates Acetaminophen Crossmatch 03/31/19 03/31/19 03/31/19 04:44 05:44 08:20 WBC RBC Hgb Hct MCV MCHC RDW Plt Count Lymph % (Auto) [place] % (Auto) Lymph # [place] # Eos # Seg Neutrophils % Seg Neuts % (Manual) Lymphocytes % (Manual) Monocytes % (Manual) Nucleated RBC % Seg Neutrophils # Seg Neutrophils # Man Lymphocytes # (Manual) Monocytes # (Manual) PT INR D-Dimer Heparin Anti-Xa Level POC ABG pH ABG pH POC ABG pCO2 53.5 H POC ABG pO2 62 L ABG pO2 ABG HCO3 ABG O2 Saturation ABG Base Excess ABG Hemoglobin Oxyhemoglobin Sodium 135 L Potassium Chloride 96.7 L Carbon Dioxide 19 L BUN 94 H Creatinine 7.8 H Glucose POC Glucose Lactic Acid Calcium 5.3 L* Ionized Calcium Phosphorus 8.20 H Magnesium Iron TIBC Ferritin Total Bilirubin Direct Bilirubin 0.4 H AST 60 H ALT Alkaline Phosphatase Total Creatine Kinase CK-MB (CK-2) Troponin T C-Reactive Protein Serum Total Protein Total Protein 4.8 L Albumin 2.1 L Afwrq-1-Owvdpnumg Txciz-7-Rbmpsaypt PEP Interpretation Triglycerides LDL Cholesterol Direct HDL Cholesterol Free T4 PTH Intact Urine WBC (Auto) Urine Creatinine Salicylates Acetaminophen Crossmatch 03/31/19 04/01/19 04/01/19 22:14 04:27 04:27 WBC RBC 2.60 L Hgb 8.0 L Hct 24.1 L MCV MCHC RDW 15.7 H Plt Count Lymph % (Auto) 7.9 L [place] % (Auto) Lymph # 0.7 L [place] # Eos # Seg Neutrophils % 83.6 H Seg Neuts % (Manual) Lymphocytes % (Manual) Monocytes % (Manual) Nucleated RBC % Seg Neutrophils # Seg Neutrophils # Man Lymphocytes # (Manual) Monocytes # (Manual) PT INR D-Dimer Heparin Anti-Xa Level POC ABG pH 7.286 L ABG pH POC ABG pCO2 54.7 H POC ABG pO2 179 H ABG pO2 ABG HCO3 ABG O2 Saturation ABG Base Excess ABG Hemoglobin Oxyhemoglobin Sodium Potassium Chloride Carbon Dioxide BUN 68 H Creatinine 6.6 H Glucose POC Glucose Lactic Acid Calcium 6.5 L D Ionized Calcium Phosphorus 7.30 H Magnesium Iron TIBC Ferritin Total Bilirubin Direct Bilirubin AST ALT Alkaline Phosphatase Total Creatine Kinase 1652 H CK-MB (CK-2) Troponin T C-Reactive Protein Serum Total Protein Total Protein Albumin Uycos-6-Tlapjznit Zqfbd-9-Ggucecixj PEP Interpretation Triglycerides LDL Cholesterol Direct HDL Cholesterol Free T4 PTH Intact Urine WBC (Auto) Urine Creatinine Salicylates Acetaminophen Crossmatch 04/01/19 04/01/19 04/01/19 05:14 05:37 18:37 WBC RBC Hgb Hct MCV MCHC RDW Plt Count Lymph % (Auto) [place] % (Auto) Lymph # [place] # Eos # Seg Neutrophils % Seg Neuts % (Manual) Lymphocytes % (Manual) Monocytes % (Manual) Nucleated RBC % Seg Neutrophils # Seg Neutrophils # Man Lymphocytes # (Manual) Monocytes # (Manual) PT INR D-Dimer Heparin Anti-Xa Level POC ABG pH 7.283 L ABG pH POC ABG pCO2 53.4 H POC ABG pO2 241 H ABG pO2 ABG HCO3 ABG O2 Saturation ABG Base Excess ABG Hemoglobin Oxyhemoglobin Sodium Potassium Chloride Carbon Dioxide BUN Creatinine Glucose POC Glucose 111 H 119 H Lactic Acid Calcium Ionized Calcium Phosphorus Magnesium Iron TIBC Ferritin Total Bilirubin Direct Bilirubin AST ALT Alkaline Phosphatase Total Creatine Kinase CK-MB (CK-2) Troponin T C-Reactive Protein Serum Total Protein Total Protein Albumin Ttypa-2-Gdxeyphxt Rmuqe-0-Otrdapyfj PEP Interpretation Triglycerides LDL Cholesterol Direct HDL Cholesterol Free T4 PTH Intact Urine WBC (Auto) Urine Creatinine Salicylates Acetaminophen Crossmatch 04/01/19 04/02/19 04/02/19 21:28 04:40 05:03 WBC RBC 2.36 L Hgb 7.2 L Hct 21.9 L MCV MCHC RDW 16.0 H Plt Count Lymph % (Auto) 10.8 L [place] % (Auto) Lymph # 0.8 L [place] # Eos # Seg Neutrophils % 80.3 H Seg Neuts % (Manual) Lymphocytes % (Manual) Monocytes % (Manual) Nucleated RBC % Seg Neutrophils # Seg Neutrophils # Man Lymphocytes # (Manual) Monocytes # (Manual) PT INR D-Dimer Heparin Anti-Xa Level POC ABG pH 7.299 L 7.300 L ABG pH POC ABG pCO2 48.2 H 45.2 H POC ABG pO2 133 H 107 H ABG pO2 ABG HCO3 ABG O2 Saturation ABG Base Excess ABG Hemoglobin Oxyhemoglobin Sodium Potassium Chloride Carbon Dioxide BUN Creatinine Glucose POC Glucose Lactic Acid Calcium Ionized Calcium Phosphorus Magnesium Iron TIBC Ferritin Total Bilirubin Direct Bilirubin AST ALT Alkaline Phosphatase Total Creatine Kinase CK-MB (CK-2) Troponin T C-Reactive Protein Serum Total Protein Total Protein Albumin [place]-6-Tnphxcaav Qfkdu-0-Ayvfvfxgj PEP Interpretation Triglycerides LDL Cholesterol Direct HDL Cholesterol Free T4 PTH Intact Urine WBC (Auto) Urine Creatinine Salicylates Acetaminophen Crossmatch 04/02/19 04/02/19 04/02/19 05:03 05:03 12:15 WBC RBC Hgb 7.4 L Hct 22.6 L MCV MCHC RDW Plt Count Lymph % (Auto) [place] % (Auto) Lymph # [place] # Eos # Seg Neutrophils % Seg Neuts % (Manual) Lymphocytes % (Manual) Monocytes % (Manual) Nucleated RBC % Seg Neutrophils # Seg Neutrophils # Man Lymphocytes # (Manual) Monocytes # (Manual) PT INR D-Dimer Heparin Anti-Xa Level POC ABG pH ABG pH POC ABG pCO2 POC ABG pO2 ABG pO2 ABG HCO3 ABG O2 Saturation ABG Base Excess ABG Hemoglobin Oxyhemoglobin Sodium 136 L Potassium Chloride 97.8 L Carbon Dioxide 18 L BUN 82 H Creatinine 8.2 H Glucose POC Glucose Lactic Acid Calcium 6.7 L Ionized Calcium Phosphorus 7.50 H Magnesium Iron 26 L TIBC 138 L Ferritin 607.0 H Total Bilirubin Direct Bilirubin AST ALT Alkaline Phosphatase Total Creatine Kinase CK-MB (CK-2) Troponin T C-Reactive Protein Serum Total Protein Total Protein Albumin Cdfwc-4-Vfpzsuthp Rooqr-5-Iowmjfjdp PEP Interpretation Triglycerides LDL Cholesterol Direct HDL Cholesterol Free T4 PTH Intact Urine WBC (Auto) Urine Creatinine Salicylates Acetaminophen Crossmatch 04/02/19 04/02/19 04/03/19 16:34 17:14 04:18 WBC RBC Hgb Hct MCV MCHC RDW Plt Count Lymph % (Auto) [place] % (Auto) Lymph # [place] # Eos # Seg Neutrophils % Seg Neuts % (Manual) Lymphocytes % (Manual) Monocytes % (Manual) Nucleated RBC % Seg Neutrophils # Seg Neutrophils # Man Lymphocytes # (Manual) Monocytes # (Manual) PT INR D-Dimer Heparin Anti-Xa Level POC ABG pH ABG pH POC ABG pCO2 POC ABG pO2 146 H ABG pO2 ABG HCO3 ABG O2 Saturation ABG Base Excess ABG Hemoglobin Oxyhemoglobin Sodium Potassium Chloride Carbon Dioxide BUN Creatinine Glucose POC Glucose 108 H Lactic Acid Calcium Ionized Calcium Phosphorus Magnesium Iron TIBC Ferritin Total Bilirubin Direct Bilirubin AST ALT Alkaline Phosphatase Total Creatine Kinase CK-MB (CK-2) Troponin T C-Reactive Protein Serum Total Protein Total Protein Albumin Gzlju-9-Gygkfsuea Hyhwk-8-Woiygjszh PEP Interpretation Triglycerides LDL Cholesterol Direct HDL Cholesterol Free T4 PTH Intact Urine WBC (Auto) Urine Creatinine Salicylates Acetaminophen Crossmatch See Detail 04/03/19 04/03/19 04/03/19 04:25 08:30 18:24 WBC RBC 2.40 L Hgb 7.3 L Hct 21.9 L MCV MCHC RDW Plt Count Lymph % (Auto) [place] % (Auto) 7.7 H Lymph # 0.9 L [place] # Eos # Seg Neutrophils % 74.6 H Seg Neuts % (Manual) Lymphocytes % (Manual) Monocytes % (Manual) Nucleated RBC % Seg Neutrophils # Seg Neutrophils # Man Lymphocytes # (Manual) Monocytes # (Manual) PT INR D-Dimer Heparin Anti-Xa Level POC ABG pH ABG pH POC ABG pCO2 POC ABG pO2 ABG pO2 ABG HCO3 ABG O2 Saturation ABG Base Excess ABG Hemoglobin Oxyhemoglobin Sodium 136 L Potassium Chloride 97.0 L Carbon Dioxide BUN 58 H Creatinine 7.3 H Glucose POC Glucose 106 H Lactic Acid Calcium 7.5 L Ionized Calcium Phosphorus 5.80 H D Magnesium Iron TIBC Ferritin Total Bilirubin Direct Bilirubin AST ALT Alkaline Phosphatase Total Creatine Kinase CK-MB (CK-2) Troponin T C-Reactive Protein Serum Total Protein Total Protein Albumin Kneei-8-Cagzrqdca Gbsik-4-Pmwjkvltz PEP Interpretation Triglycerides LDL Cholesterol Direct HDL Cholesterol Free T4 PTH Intact Urine WBC (Auto) Urine Creatinine Salicylates Acetaminophen Crossmatch 04/03/19 04/04/19 04/04/19 23:43 04:47 04:47 WBC RBC 2.72 L Hgb 8.3 L Hct 24.7 L MCV MCHC RDW 15.6 H Plt Count Lymph % (Auto) [place] % (Auto) 10.1 H Lymph # 0.8 L [place] # Eos # Seg Neutrophils % 71.4 H Seg Neuts % (Manual) Lymphocytes % (Manual) Monocytes % (Manual) Nucleated RBC % Seg Neutrophils # Seg Neutrophils # Man Lymphocytes # (Manual) Monocytes # (Manual) PT INR D-Dimer Heparin Anti-Xa Level POC ABG pH ABG pH POC ABG pCO2 POC ABG pO2 ABG pO2 123.8 H ABG HCO3 ABG O2 Saturation ABG Base Excess -3.0 L ABG Hemoglobin 7.9 L Oxyhemoglobin Sodium 134 L Potassium Chloride 97.9 L Carbon Dioxide BUN 64 H Creatinine 8.1 H Glucose POC Glucose Lactic Acid Calcium 7.2 L Ionized Calcium Phosphorus Magnesium Iron TIBC Ferritin Total Bilirubin Direct Bilirubin AST ALT Alkaline Phosphatase Total Creatine Kinase CK-MB (CK-2) Troponin T C-Reactive Protein Serum Total Protein Total Protein Albumin Xvwrt-5-Fcahouyrn Ecykq-6-Lwojotekh PEP Interpretation Triglycerides LDL Cholesterol Direct HDL Cholesterol Free T4 PTH Intact Urine WBC (Auto) Urine Creatinine Salicylates Acetaminophen Crossmatch 04/04/19 04/04/19 04/04/19 06:07 13:40 18:18 WBC RBC Hgb Hct MCV MCHC RDW Plt Count Lymph % (Auto) [place] % (Auto) Lymph # [place] # Eos # Seg Neutrophils % Seg Neuts % (Manual) Lymphocytes % (Manual) Monocytes % (Manual) Nucleated RBC % Seg Neutrophils # Seg Neutrophils # Man Lymphocytes # (Manual) Monocytes # (Manual) PT INR D-Dimer Heparin Anti-Xa Level POC ABG pH ABG pH POC ABG pCO2 POC ABG pO2 ABG pO2 95.9 H ABG HCO3 ABG O2 Saturation ABG Base Excess -3.0 L ABG Hemoglobin 8.5 L Oxyhemoglobin Sodium Potassium Chloride Carbon Dioxide BUN Creatinine Glucose POC Glucose 107 H 107 H Lactic Acid Calcium Ionized Calcium Phosphorus Magnesium Iron TIBC Ferritin Total Bilirubin Direct Bilirubin AST ALT Alkaline Phosphatase Total Creatine Kinase CK-MB (CK-2) Troponin T C-Reactive Protein Serum Total Protein Total Protein Albumin Itwmg-7-Pyemmrslx Lkgaj-0-Gqzdbnefo PEP Interpretation Triglycerides LDL Cholesterol Direct HDL Cholesterol Free T4 PTH Intact Urine WBC (Auto) Urine Creatinine Salicylates Acetaminophen Crossmatch 04/04/19 04/05/19 04/05/19 21:22 04:09 04:09 WBC RBC 2.76 L Hgb 8.4 L Hct 25.4 L MCV MCHC RDW 15.8 H Plt Count 133 L Lymph % (Auto) [place] % (Auto) 9.6 H Lymph # 0.7 L [place] # Eos # Seg Neutrophils % 72.6 H Seg Neuts % (Manual) Lymphocytes % (Manual) Monocytes % (Manual) Nucleated RBC % Seg Neutrophils # Seg Neutrophils # Man Lymphocytes # (Manual) Monocytes # (Manual) PT INR D-Dimer Heparin Anti-Xa Level POC ABG pH ABG pH POC ABG pCO2 47.2 H POC ABG pO2 137 H ABG pO2 ABG HCO3 ABG O2 Saturation ABG Base Excess ABG Hemoglobin Oxyhemoglobin Sodium 136 L Potassium Chloride Carbon Dioxide BUN 46 H Creatinine 6.7 H Glucose POC Glucose Lactic Acid Calcium 7.7 L Ionized Calcium Phosphorus Magnesium Iron TIBC Ferritin Total Bilirubin Direct Bilirubin AST ALT Alkaline Phosphatase Total Creatine Kinase CK-MB (CK-2) Troponin T C-Reactive Protein Serum Total Protein Total Protein Albumin Hsvuh-3-Inxawsxod Htdcs-4-Fgliqrfwu PEP Interpretation Triglycerides LDL Cholesterol Direct HDL Cholesterol Free T4 PTH Intact Urine WBC (Auto) Urine Creatinine Salicylates Acetaminophen Crossmatch 04/05/19 04/05/19 04/05/19 05:28 06:14 16:50 WBC RBC Hgb Hct MCV MCHC RDW Plt Count Lymph % (Auto) [place] % (Auto) Lymph # [place] # Eos # Seg Neutrophils % Seg Neuts % (Manual) Lymphocytes % (Manual) Monocytes % (Manual) Nucleated RBC % Seg Neutrophils # Seg Neutrophils # Man Lymphocytes # (Manual) Monocytes # (Manual) PT INR D-Dimer Heparin Anti-Xa Level POC ABG pH ABG pH POC ABG pCO2 POC ABG pO2 67 L ABG pO2 ABG HCO3 ABG O2 Saturation ABG Base Excess ABG Hemoglobin Oxyhemoglobin Sodium Potassium Chloride Carbon Dioxide BUN Creatinine Glucose POC Glucose 108 H Lactic Acid Calcium Ionized Calcium Phosphorus Magnesium Iron TIBC Ferritin Total Bilirubin Direct Bilirubin AST ALT Alkaline Phosphatase Total Creatine Kinase CK-MB (CK-2) Troponin T C-Reactive Protein Serum Total Protein Total Protein Albumin Redbd-7-Btkobuajm Hgrjk-3-Jmgiyvcfb PEP Interpretation Triglycerides LDL Cholesterol Direct HDL Cholesterol Free T4 PTH Intact Urine WBC (Auto) 40.0 H Urine Creatinine Salicylates Acetaminophen Crossmatch 04/05/19 04/06/19 04/06/19 17:22 00:13 04:44 WBC RBC 2.48 L Hgb 7.5 L Hct 22.9 L MCV MCHC RDW 16.0 H Plt Count 107 L Lymph % (Auto) [place] % (Auto) 10.7 H Lymph # 1.0 L [place] # Eos # Seg Neutrophils % Seg Neuts % (Manual) Lymphocytes % (Manual) Monocytes % (Manual) Nucleated RBC % Seg Neutrophils # Seg Neutrophils # Man Lymphocytes # (Manual) Monocytes # (Manual) PT INR D-Dimer Heparin Anti-Xa Level POC ABG pH ABG pH POC ABG pCO2 POC ABG pO2 ABG pO2 ABG HCO3 ABG O2 Saturation ABG Base Excess ABG Hemoglobin Oxyhemoglobin Sodium Potassium Chloride Carbon Dioxide BUN Creatinine Glucose POC Glucose 118 H 138 H Lactic Acid Calcium Ionized Calcium Phosphorus Magnesium Iron TIBC Ferritin Total Bilirubin Direct Bilirubin AST ALT Alkaline Phosphatase Total Creatine Kinase CK-MB (CK-2) Troponin T C-Reactive Protein Serum Total Protein Total Protein Albumin Rnnoh-0-Jfbtqwkov Bfjhe-7-Ickooapgh PEP Interpretation Triglycerides LDL Cholesterol Direct HDL Cholesterol Free T4 PTH Intact Urine WBC (Auto) Urine Creatinine Salicylates Acetaminophen Crossmatch 04/06/19 04/06/19 04/06/19 04:44 05:20 05:23 WBC RBC Hgb Hct MCV MCHC RDW Plt Count Lymph % (Auto) [place] % (Auto) Lymph # [place] # Eos # Seg Neutrophils % Seg Neuts % (Manual) Lymphocytes % (Manual) Monocytes % (Manual) Nucleated RBC % Seg Neutrophils # Seg Neutrophils # Man Lymphocytes # (Manual) Monocytes # (Manual) PT INR D-Dimer Heparin Anti-Xa Level POC ABG pH ABG pH POC ABG pCO2 POC ABG pO2 ABG pO2 104.0 H ABG HCO3 ABG O2 Saturation ABG Base Excess -2.1 L ABG Hemoglobin 7.3 L Oxyhemoglobin Sodium Potassium Chloride Carbon Dioxide BUN 64 H Creatinine 8.2 H Glucose 103 H POC Glucose 118 H Lactic Acid Calcium 7.3 L Ionized Calcium Phosphorus Magnesium Iron TIBC Ferritin Total Bilirubin Direct Bilirubin AST ALT Alkaline Phosphatase Total Creatine Kinase CK-MB (CK-2) Troponin T C-Reactive Protein Serum Total Protein Total Protein Albumin Gsohb-8-Rrthmdkgo Gmkhr-8-Qeaecikin PEP Interpretation Triglycerides LDL Cholesterol Direct HDL Cholesterol Free T4 PTH Intact Urine WBC (Auto) Urine Creatinine Salicylates Acetaminophen Crossmatch 04/06/19 04/07/19 04/07/19 12:02 05:40 05:40 WBC RBC 2.59 L Hgb 7.9 L Hct 23.8 L MCV MCHC RDW 15.8 H Plt Count 89 L Lymph % (Auto) [place] % (Auto) 10.3 H Lymph # 1.1 L [place] # Eos # Seg Neutrophils % Seg Neuts % (Manual) Lymphocytes % (Manual) Monocytes % (Manual) Nucleated RBC % Seg Neutrophils # Seg Neutrophils # Man Lymphocytes # (Manual) Monocytes # (Manual) PT INR D-Dimer Heparin Anti-Xa Level POC ABG pH ABG pH POC ABG pCO2 POC ABG pO2 ABG pO2 ABG HCO3 ABG O2 Saturation ABG Base Excess ABG Hemoglobin Oxyhemoglobin Sodium 136 L Potassium 3.5 L Chloride Carbon Dioxide BUN 46 H Creatinine 6.2 H Glucose POC Glucose 108 H Lactic Acid Calcium 7.9 L Ionized Calcium Phosphorus Magnesium Iron TIBC Ferritin Total Bilirubin Direct Bilirubin AST ALT Alkaline Phosphatase Total Creatine Kinase CK-MB (CK-2) Troponin T C-Reactive Protein Serum Total Protein Total Protein Albumin Dvgxi-7-Uacwgwgxa Cisfb-8-Mpnknlzjd PEP Interpretation Triglycerides LDL Cholesterol Direct HDL Cholesterol Free T4 PTH Intact Urine WBC (Auto) Urine Creatinine Salicylates Acetaminophen Crossmatch 04/07/19 04/09/19 04/09/19 12:57 04:28 04:28 WBC RBC 2.85 L Hgb 8.7 L Hct 26.2 L MCV MCHC RDW 15.6 H Plt Count Lymph % (Auto) [place] % (Auto) 10.4 H Lymph # 1.0 L [place] # Eos # Seg Neutrophils % 73.3 H Seg Neuts % (Manual) Lymphocytes % (Manual) Monocytes % (Manual) Nucleated RBC % Seg Neutrophils # Seg Neutrophils # Man Lymphocytes # (Manual) Monocytes # (Manual) PT INR D-Dimer Heparin Anti-Xa Level POC ABG pH ABG pH POC ABG pCO2 POC ABG pO2 107 H ABG pO2 ABG HCO3 ABG O2 Saturation ABG Base Excess ABG Hemoglobin Oxyhemoglobin Sodium Potassium 3.5 L Chloride 97.8 L Carbon Dioxide BUN 62 H Creatinine 8.1 H Glucose POC Glucose Lactic Acid Calcium 8.2 L Ionized Calcium Phosphorus 5.10 H Magnesium Iron TIBC Ferritin Total Bilirubin Direct Bilirubin AST ALT Alkaline Phosphatase Total Creatine Kinase CK-MB (CK-2) Troponin T C-Reactive Protein Serum Total Protein Total Protein Albumin Fxmeu-7-Addgkostb Yntyb-3-Pvynakowp PEP Interpretation Triglycerides LDL Cholesterol Direct HDL Cholesterol Free T4 PTH Intact Urine WBC (Auto) Urine Creatinine Salicylates Acetaminophen Crossmatch 04/10/19 04/11/19 04/11/19 18:15 00:25 04:16 WBC 11.5 H RBC 2.91 L Hgb 8.9 L Hct 27.6 L MCV 95 H MCHC RDW 17.5 H Plt Count Lymph % (Auto) [place] % (Auto) Lymph # [place] # Eos # Seg Neutrophils % Seg Neuts % (Manual) 71.0 H Lymphocytes % (Manual) Monocytes % (Manual) 8.0 H Nucleated RBC % Seg Neutrophils # Seg Neutrophils # Man 8.2 H Lymphocytes # (Manual) Monocytes # (Manual) 0.9 H PT INR D-Dimer Heparin Anti-Xa Level POC ABG pH ABG pH POC ABG pCO2 POC ABG pO2 ABG pO2 ABG HCO3 ABG O2 Saturation ABG Base Excess ABG Hemoglobin Oxyhemoglobin Sodium Potassium Chloride Carbon Dioxide BUN Creatinine Glucose POC Glucose 109 H 114 H Lactic Acid Calcium Ionized Calcium Phosphorus Magnesium Iron TIBC Ferritin Total Bilirubin Direct Bilirubin AST ALT Alkaline Phosphatase Total Creatine Kinase CK-MB (CK-2) Troponin T C-Reactive Protein Serum Total Protein Total Protein Albumin Ulzyd-6-Cqpcskdyp Orcvg-7-Meahokfxv PEP Interpretation Triglycerides LDL Cholesterol Direct HDL Cholesterol Free T4 PTH Intact Urine WBC (Auto) Urine Creatinine Salicylates Acetaminophen Crossmatch 04/11/19 04/11/19 04/11/19 06:47 09:21 12:15 WBC RBC Hgb Hct MCV MCHC RDW Plt Count Lymph % (Auto) [place] % (Auto) Lymph # [place] # Eos # Seg Neutrophils % Seg Neuts % (Manual) Lymphocytes % (Manual) Monocytes % (Manual) Nucleated RBC % Seg Neutrophils # Seg Neutrophils # Man Lymphocytes # (Manual) Monocytes # (Manual) PT INR D-Dimer Heparin Anti-Xa Level POC ABG pH ABG pH POC ABG pCO2 POC ABG pO2 ABG pO2 ABG HCO3 ABG O2 Saturation ABG Base Excess ABG Hemoglobin Oxyhemoglobin Sodium Potassium 3.5 L Chloride Carbon Dioxide BUN 45 H Creatinine 6.0 H Glucose 113 H POC Glucose 106 H 109 H Lactic Acid Calcium Ionized Calcium Phosphorus Magnesium Iron TIBC Ferritin Total Bilirubin Direct Bilirubin AST ALT Alkaline Phosphatase Total Creatine Kinase CK-MB (CK-2) Troponin T C-Reactive Protein Serum Total Protein Total Protein Albumin Toyjy-5-Qvtkruoxq Jigbr-2-Ibcjeqsga PEP Interpretation Triglycerides LDL Cholesterol Direct HDL Cholesterol Free T4 PTH Intact Urine WBC (Auto) Urine Creatinine Salicylates Acetaminophen Crossmatch 04/11/19 04/12/19 04/12/19 18:42 12:13 23:52 WBC RBC Hgb Hct MCV MCHC RDW Plt Count Lymph % (Auto) [place] % (Auto) Lymph # [place] # Eos # Seg Neutrophils % Seg Neuts % (Manual) Lymphocytes % (Manual) Monocytes % (Manual) Nucleated RBC % Seg Neutrophils # Seg Neutrophils # Man Lymphocytes # (Manual) Monocytes # (Manual) PT INR D-Dimer Heparin Anti-Xa Level POC ABG pH ABG pH POC ABG pCO2 POC ABG pO2 ABG pO2 ABG HCO3 ABG O2 Saturation ABG Base Excess ABG Hemoglobin Oxyhemoglobin Sodium Potassium Chloride Carbon Dioxide BUN Creatinine Glucose POC Glucose 107 H 115 H 124 H Lactic Acid Calcium Ionized Calcium Phosphorus Magnesium Iron TIBC Ferritin Total Bilirubin Direct Bilirubin AST ALT Alkaline Phosphatase Total Creatine Kinase CK-MB (CK-2) Troponin T C-Reactive Protein Serum Total Protein Total Protein Albumin Rqteo-6-Frsqruqxx Uvsvi-0-Kiyhdpgaz PEP Interpretation Triglycerides LDL Cholesterol Direct HDL Cholesterol Free T4 PTH Intact Urine WBC (Auto) Urine Creatinine Salicylates Acetaminophen Crossmatch 04/13/19 04/13/19 04/13/19 05:00 05:00 05:47 WBC 11.7 H RBC 2.97 L Hgb 8.8 L Hct 27.3 L MCV MCHC RDW 16.1 H Plt Count Lymph % (Auto) 9.5 L [place] % (Auto) 9.9 H Lymph # 1.1 L [place] # 1.2 H Eos # Seg Neutrophils % 78.6 H Seg Neuts % (Manual) Lymphocytes % (Manual) Monocytes % (Manual) Nucleated RBC % Seg Neutrophils # 9.2 H Seg Neutrophils # Man Lymphocytes # (Manual) Monocytes # (Manual) PT INR D-Dimer Heparin Anti-Xa Level POC ABG pH ABG pH POC ABG pCO2 POC ABG pO2 ABG pO2 ABG HCO3 ABG O2 Saturation ABG Base Excess ABG Hemoglobin Oxyhemoglobin Sodium Potassium 3.5 L Chloride Carbon Dioxide BUN 42 H Creatinine 4.6 H Glucose 106 H POC Glucose 107 H Lactic Acid Calcium 10.6 H D Ionized Calcium Phosphorus 5.90 H Magnesium Iron TIBC Ferritin Total Bilirubin Direct Bilirubin AST ALT Alkaline Phosphatase Total Creatine Kinase CK-MB (CK-2) Troponin T C-Reactive Protein Serum Total Protein Total Protein 5.8 L Albumin 2.5 L Tghix-4-Azxkygvwd Becga-6-Xsywqxwly PEP Interpretation Triglycerides LDL Cholesterol Direct HDL Cholesterol Free T4 PTH Intact Urine WBC (Auto) Urine Creatinine Salicylates Acetaminophen Crossmatch 04/13/19 04/14/19 04/14/19 17:32 00:00 03:55 WBC RBC Hgb Hct MCV MCHC RDW Plt Count Lymph % (Auto) [place] % (Auto) Lymph # [place] # Eos # Seg Neutrophils % Seg Neuts % (Manual) Lymphocytes % (Manual) Monocytes % (Manual) Nucleated RBC % Seg Neutrophils # Seg Neutrophils # Man Lymphocytes # (Manual) Monocytes # (Manual) PT INR D-Dimer Heparin Anti-Xa Level POC ABG pH ABG pH POC ABG pCO2 POC ABG pO2 ABG pO2 ABG HCO3 ABG O2 Saturation ABG Base Excess ABG Hemoglobin Oxyhemoglobin Sodium Potassium 3.0 L Chloride Carbon Dioxide BUN 30 H Creatinine 3.1 H Glucose POC Glucose 112 H 120 H Lactic Acid Calcium 10.8 H Ionized Calcium Phosphorus Magnesium Iron TIBC Ferritin Total Bilirubin Direct Bilirubin AST ALT Alkaline Phosphatase Total Creatine Kinase CK-MB (CK-2) Troponin T C-Reactive Protein Serum Total Protein Total Protein Albumin Yerus-4-Pgiqlekxn Bhvyd-9-Ssamsrmjm PEP Interpretation Triglycerides LDL Cholesterol Direct HDL Cholesterol Free T4 PTH Intact Urine WBC (Auto) Urine Creatinine Salicylates Acetaminophen Crossmatch 04/14/19 04/14/19 04/15/19 11:56 23:28 05:11 WBC 13.0 H RBC 2.93 L Hgb 8.6 L Hct 26.5 L MCV MCHC RDW 16.5 H Plt Count Lymph % (Auto) 12.2 L [place] % (Auto) 9.1 H Lymph # [place] # 1.2 H Eos # Seg Neutrophils % 77.6 H Seg Neuts % (Manual) Lymphocytes % (Manual) Monocytes % (Manual) Nucleated RBC % Seg Neutrophils # 10.1 H Seg Neutrophils # Man Lymphocytes # (Manual) Monocytes # (Manual) PT INR D-Dimer Heparin Anti-Xa Level POC ABG pH ABG pH POC ABG pCO2 POC ABG pO2 ABG pO2 ABG HCO3 ABG O2 Saturation ABG Base Excess ABG Hemoglobin Oxyhemoglobin Sodium Potassium Chloride Carbon Dioxide BUN Creatinine Glucose POC Glucose 109 H 112 H Lactic Acid Calcium Ionized Calcium Phosphorus Magnesium Iron TIBC Ferritin Total Bilirubin Direct Bilirubin AST ALT Alkaline Phosphatase Total Creatine Kinase CK-MB (CK-2) Troponin T C-Reactive Protein Serum Total Protein Total Protein Albumin Wjfmd-2-Ayafqfvnm Cokpc-5-Wkfjzcyhq PEP Interpretation Triglycerides LDL Cholesterol Direct HDL Cholesterol Free T4 PTH Intact Urine WBC (Auto) Urine Creatinine Salicylates Acetaminophen Crossmatch 04/15/19 04/15/19 04/15/19 05:11 05:31 18:03 WBC RBC Hgb Hct MCV MCHC RDW Plt Count Lymph % (Auto) [place] % (Auto) Lymph # [place] # Eos # Seg Neutrophils % Seg Neuts % (Manual) Lymphocytes % (Manual) Monocytes % (Manual) Nucleated RBC % Seg Neutrophils # Seg Neutrophils # Man Lymphocytes # (Manual) Monocytes # (Manual) PT INR D-Dimer Heparin Anti-Xa Level POC ABG pH ABG pH POC ABG pCO2 POC ABG pO2 ABG pO2 ABG HCO3 ABG O2 Saturation ABG Base Excess ABG Hemoglobin Oxyhemoglobin Sodium Potassium 3.2 L Chloride Carbon Dioxide BUN 44 H Creatinine 3.6 H Glucose 106 H POC Glucose 110 H 121 H Lactic Acid Calcium 12.0 H Ionized Calcium Phosphorus 5.00 H Magnesium Iron TIBC Ferritin Total Bilirubin Direct Bilirubin AST ALT Alkaline Phosphatase Total Creatine Kinase CK-MB (CK-2) Troponin T C-Reactive Protein Serum Total Protein Total Protein Albumin Cmhew-1-Ckmhzemdu Nltmy-4-Xjztifxgb PEP Interpretation Triglycerides LDL Cholesterol Direct HDL Cholesterol Free T4 PTH Intact Urine WBC (Auto) Urine Creatinine Salicylates Acetaminophen Crossmatch 04/16/19 04/16/19 04/17/19 05:07 05:07 04:15 WBC 12.6 H RBC 3.12 L Hgb 9.0 L Hct 28.2 L MCV MCHC RDW 16.6 H Plt Count Lymph % (Auto) 10.3 L [place] % (Auto) 9.8 H Lymph # [place] # 1.2 H Eos # Seg Neutrophils % 78.2 H Seg Neuts % (Manual) Lymphocytes % (Manual) Monocytes % (Manual) Nucleated RBC % Seg Neutrophils # 9.9 H Seg Neutrophils # Man Lymphocytes # (Manual) Monocytes # (Manual) PT INR D-Dimer Heparin Anti-Xa Level POC ABG pH ABG pH POC ABG pCO2 POC ABG pO2 ABG pO2 ABG HCO3 ABG O2 Saturation ABG Base Excess ABG Hemoglobin Oxyhemoglobin Sodium 147 H 150 H Potassium 3.5 L 3.1 L Chloride Carbon Dioxide 32 H BUN 54 H 65 H Creatinine 3.8 H 4.0 H Glucose 102 H 107 H POC Glucose Lactic Acid Calcium 11.7 H 12.0 H Ionized Calcium Phosphorus 5.40 H Magnesium Iron TIBC Ferritin Total Bilirubin Direct Bilirubin AST ALT Alkaline Phosphatase Total Creatine Kinase CK-MB (CK-2) Troponin T C-Reactive Protein 7.10 H Serum Total Protein Total Protein Albumin Zhzgm-0-Fkjvykpdh Eaqbh-3-Rlultcbke PEP Interpretation Triglycerides LDL Cholesterol Direct HDL Cholesterol Free T4 PTH Intact Urine WBC (Auto) Urine Creatinine Salicylates Acetaminophen Crossmatch 04/17/19 04/17/19 04/17/19 04:15 06:05 12:49 WBC 15.8 H RBC 3.32 L Hgb 9.5 L Hct 29.9 L MCV MCHC RDW 16.9 H Plt Count Lymph % (Auto) 12.6 L [place] % (Auto) 11.1 H Lymph # [place] # 1.7 H Eos # Seg Neutrophils % 74.7 H Seg Neuts % (Manual) Lymphocytes % (Manual) Monocytes % (Manual) Nucleated RBC % Seg Neutrophils # 11.8 H Seg Neutrophils # Man Lymphocytes # (Manual) Monocytes # (Manual) PT INR D-Dimer Heparin Anti-Xa Level POC ABG pH ABG pH POC ABG pCO2 POC ABG pO2 ABG pO2 ABG HCO3 ABG O2 Saturation ABG Base Excess ABG Hemoglobin Oxyhemoglobin Sodium Potassium Chloride Carbon Dioxide BUN Creatinine Glucose POC Glucose 111 H 108 H Lactic Acid Calcium Ionized Calcium Phosphorus Magnesium Iron TIBC Ferritin Total Bilirubin Direct Bilirubin AST ALT Alkaline Phosphatase Total Creatine Kinase CK-MB (CK-2) Troponin T C-Reactive Protein Serum Total Protein Total Protein Albumin Ptyvr-7-Fiigvtswy Oiezm-6-Orkfcqbnn PEP Interpretation Triglycerides LDL Cholesterol Direct HDL Cholesterol Free T4 PTH Intact Urine WBC (Auto) Urine Creatinine Salicylates Acetaminophen Crossmatch 04/18/19 04/18/19 04/18/19 00:23 04:41 04:41 WBC 19.4 H RBC 3.03 L Hgb 8.6 L Hct 27.5 L MCV MCHC 31 L RDW 16.9 H Plt Count Lymph % (Auto) [place] % (Auto) Lymph # [place] # Eos # Seg Neutrophils % Seg Neuts % (Manual) Lymphocytes % (Manual) Monocytes % (Manual) Nucleated RBC % Seg Neutrophils # Seg Neutrophils # Man Lymphocytes # (Manual) Monocytes # (Manual) PT INR D-Dimer Heparin Anti-Xa Level POC ABG pH ABG pH POC ABG pCO2 POC ABG pO2 ABG pO2 ABG HCO3 ABG O2 Saturation ABG Base Excess ABG Hemoglobin Oxyhemoglobin Sodium 152 H Potassium 3.0 L Chloride Carbon Dioxide BUN 80 H Creatinine 4.3 H Glucose 103 H POC Glucose 115 H Lactic Acid Calcium 11.4 H Ionized Calcium Phosphorus Magnesium Iron TIBC Ferritin Total Bilirubin Direct Bilirubin AST ALT Alkaline Phosphatase Total Creatine Kinase CK-MB (CK-2) Troponin T C-Reactive Protein Serum Total Protein Total Protein Albumin Bacpi-1-Uhoawwggj Ovyzj-7-Egxfkjcyq PEP Interpretation Triglycerides LDL Cholesterol Direct HDL Cholesterol Free T4 PTH Intact Urine WBC (Auto) Urine Creatinine Salicylates Acetaminophen Crossmatch 04/18/19 04/18/19 04/18/19 06:17 12:16 18:10 WBC RBC Hgb Hct MCV MCHC RDW Plt Count Lymph % (Auto) [place] % (Auto) Lymph # [place] # Eos # Seg Neutrophils % Seg Neuts % (Manual) Lymphocytes % (Manual) Monocytes % (Manual) Nucleated RBC % Seg Neutrophils # Seg Neutrophils # Man Lymphocytes # (Manual) Monocytes # (Manual) PT INR D-Dimer Heparin Anti-Xa Level POC ABG pH ABG pH POC ABG pCO2 POC ABG pO2 ABG pO2 ABG HCO3 ABG O2 Saturation ABG Base Excess ABG Hemoglobin Oxyhemoglobin Sodium Potassium Chloride Carbon Dioxide BUN Creatinine Glucose POC Glucose 124 H 119 H 111 H Lactic Acid Calcium Ionized Calcium Phosphorus Magnesium Iron TIBC Ferritin Total Bilirubin Direct Bilirubin AST ALT Alkaline Phosphatase Total Creatine Kinase CK-MB (CK-2) Troponin T C-Reactive Protein Serum Total Protein Total Protein Albumin Ahali-3-Yawspxuam Gesbh-0-Tofkmheyx PEP Interpretation Triglycerides LDL Cholesterol Direct HDL Cholesterol Free T4 PTH Intact Urine WBC (Auto) Urine Creatinine Salicylates Acetaminophen Crossmatch 04/19/19 04/19/19 04/20/19 03:49 05:27 09:09 WBC RBC Hgb Hct MCV MCHC RDW Plt Count Lymph % (Auto) [place] % (Auto) Lymph # [place] # Eos # Seg Neutrophils % Seg Neuts % (Manual) Lymphocytes % (Manual) Monocytes % (Manual) Nucleated RBC % Seg Neutrophils # Seg Neutrophils # Man Lymphocytes # (Manual) Monocytes # (Manual) PT INR D-Dimer Heparin Anti-Xa Level POC ABG pH ABG pH POC ABG pCO2 POC ABG pO2 ABG pO2 ABG HCO3 ABG O2 Saturation ABG Base Excess ABG Hemoglobin Oxyhemoglobin Sodium 147 H 150 H Potassium 3.3 L Chloride 108.9 H Carbon Dioxide BUN 45 H 70 H Creatinine 2.9 H 4.1 H Glucose 105 H POC Glucose 124 H Lactic Acid Calcium 10.6 H 11.6 H Ionized Calcium Phosphorus Magnesium Iron TIBC Ferritin Total Bilirubin Direct Bilirubin AST ALT Alkaline Phosphatase Total Creatine Kinase CK-MB (CK-2) Troponin T C-Reactive Protein Serum Total Protein Total Protein Albumin Kjstv-0-Ubxzmyhdu Wixit-3-Hnwirsytu PEP Interpretation Triglycerides LDL Cholesterol Direct HDL Cholesterol Free T4 PTH Intact Urine WBC (Auto) Urine Creatinine Salicylates Acetaminophen Crossmatch 04/20/19 04/20/19 04/21/19 12:29 18:45 01:34 WBC RBC Hgb Hct MCV MCHC RDW Plt Count Lymph % (Auto) [place] % (Auto) Lymph # [place] # Eos # Seg Neutrophils % Seg Neuts % (Manual) Lymphocytes % (Manual) Monocytes % (Manual) Nucleated RBC % Seg Neutrophils # Seg Neutrophils # Man Lymphocytes # (Manual) Monocytes # (Manual) PT INR D-Dimer Heparin Anti-Xa Level POC ABG pH ABG pH POC ABG pCO2 POC ABG pO2 ABG pO2 ABG HCO3 ABG O2 Saturation ABG Base Excess ABG Hemoglobin Oxyhemoglobin Sodium Potassium Chloride Carbon Dioxide BUN 40 H Creatinine 2.6 H Glucose 104 H POC Glucose 131 H 134 H Lactic Acid Calcium 11.0 H Ionized Calcium Phosphorus Magnesium Iron TIBC Ferritin Total Bilirubin Direct Bilirubin AST ALT Alkaline Phosphatase Total Creatine Kinase CK-MB (CK-2) Troponin T C-Reactive Protein Serum Total Protein Total Protein Albumin Pymeq-3-Thvvammyb Bpblr-8-Zmjpluvrp PEP Interpretation Triglycerides LDL Cholesterol Direct HDL Cholesterol Free T4 PTH Intact Urine WBC (Auto) Urine Creatinine Salicylates Acetaminophen Crossmatch 04/21/19 04/21/19 04/22/19 04:22 04:22 04:24 WBC 14.2 H 14.3 H RBC 3.02 L 3.57 L Hgb 8.7 L 10.1 L Hct 27.2 L 32.1 L MCV MCHC RDW 16.7 H 17.2 H Plt Count Lymph % (Auto) [place] % (Auto) Lymph # [place] # Eos # Seg Neutrophils % Seg Neuts % (Manual) Lymphocytes % (Manual) Monocytes % (Manual) Nucleated RBC % Seg Neutrophils # Seg Neutrophils # Man Lymphocytes # (Manual) Monocytes # (Manual) PT INR D-Dimer Heparin Anti-Xa Level POC ABG pH ABG pH POC ABG pCO2 POC ABG pO2 ABG pO2 ABG HCO3 ABG O2 Saturation ABG Base Excess ABG Hemoglobin Oxyhemoglobin Sodium Potassium Chloride Carbon Dioxide BUN Creatinine Glucose POC Glucose Lactic Acid Calcium Ionized Calcium Phosphorus Magnesium Iron TIBC Ferritin Total Bilirubin Direct Bilirubin AST ALT Alkaline Phosphatase Total Creatine Kinase CK-MB (CK-2) Troponin T C-Reactive Protein Serum Total Protein 5.7 L Total Protein Albumin 2.3 L Jecdd-5-Nxajqgzos 0.5 H Sppps-5-Nkcnohjtc 1.0 H PEP Interpretation see below H Triglycerides LDL Cholesterol Direct HDL Cholesterol Free T4 PTH Intact Urine WBC (Auto) Urine Creatinine Salicylates Acetaminophen Crossmatch 04/22/19 04/22/19 04/22/19 04:24 06:37 11:57 WBC RBC Hgb Hct MCV MCHC RDW Plt Count Lymph % (Auto) [place] % (Auto) Lymph # [place] # Eos # Seg Neutrophils % Seg Neuts % (Manual) Lymphocytes % (Manual) Monocytes % (Manual) Nucleated RBC % Seg Neutrophils # Seg Neutrophils # Man Lymphocytes # (Manual) Monocytes # (Manual) PT INR D-Dimer Heparin Anti-Xa Level POC ABG pH ABG pH POC ABG pCO2 POC ABG pO2 ABG pO2 ABG HCO3 ABG O2 Saturation ABG Base Excess ABG Hemoglobin Oxyhemoglobin Sodium Potassium Chloride Carbon Dioxide BUN 54 H Creatinine 3.5 H Glucose POC Glucose 113 H 110 H Lactic Acid Calcium 11.4 H Ionized Calcium Phosphorus Magnesium Iron TIBC Ferritin Total Bilirubin Direct Bilirubin AST ALT Alkaline Phosphatase Total Creatine Kinase CK-MB (CK-2) Troponin T C-Reactive Protein Serum Total Protein Total Protein Albumin Xtdjm-3-Ycoxoanju Qchvi-4-Gaaugbnpt PEP Interpretation Triglycerides LDL Cholesterol Direct HDL Cholesterol Free T4 PTH Intact Urine WBC (Auto) Urine Creatinine Salicylates Acetaminophen Crossmatch 04/22/19 04/23/19 04/23/19 18:33 04:06 04:06 WBC 16.1 H RBC 3.36 L Hgb 9.8 L Hct 30.8 L MCV MCHC RDW 17.7 H Plt Count Lymph % (Auto) 9.9 L [place] % (Auto) Lymph # [place] # Eos # Seg Neutrophils % 84.2 H Seg Neuts % (Manual) Lymphocytes % (Manual) Monocytes % (Manual) Nucleated RBC % Seg Neutrophils # 13.6 H Seg Neutrophils # Man Lymphocytes # (Manual) Monocytes # (Manual) PT INR D-Dimer Heparin Anti-Xa Level POC ABG pH ABG pH POC ABG pCO2 POC ABG pO2 ABG pO2 ABG HCO3 ABG O2 Saturation ABG Base Excess ABG Hemoglobin Oxyhemoglobin Sodium Potassium Chloride Carbon Dioxide BUN 59 H Creatinine 3.8 H Glucose POC Glucose 120 H Lactic Acid Calcium 12.3 H* Ionized Calcium Phosphorus 5.70 H Magnesium Iron TIBC Ferritin Total Bilirubin Direct Bilirubin AST ALT Alkaline Phosphatase Total Creatine Kinase CK-MB (CK-2) Troponin T C-Reactive Protein Serum Total Protein Total Protein Albumin 3.2 L Fcadv-0-Opomzyhvm Vlsvz-9-Ifwclxipn PEP Interpretation Triglycerides LDL Cholesterol Direct HDL Cholesterol Free T4 PTH Intact Urine WBC (Auto) Urine Creatinine Salicylates Acetaminophen Crossmatch 04/23/19 04/24/19 04/24/19 18:06 04:12 04:12 WBC 18.0 H RBC 3.46 L Hgb 9.8 L Hct 31.2 L MCV MCHC 31 L RDW 17.5 H Plt Count Lymph % (Auto) 11.1 L [place] % (Auto) Lymph # [place] # Eos # Seg Neutrophils % 81.9 H Seg Neuts % (Manual) Lymphocytes % (Manual) Monocytes % (Manual) Nucleated RBC % Seg Neutrophils # 14.7 H Seg Neutrophils # Man Lymphocytes # (Manual) Monocytes # (Manual) PT INR D-Dimer Heparin Anti-Xa Level POC ABG pH ABG pH POC ABG pCO2 POC ABG pO2 ABG pO2 ABG HCO3 ABG O2 Saturation ABG Base Excess ABG Hemoglobin Oxyhemoglobin Sodium Potassium Chloride Carbon Dioxide BUN 56 H Creatinine 3.6 H Glucose POC Glucose 124 H Lactic Acid Calcium 12.6 H* Ionized Calcium Phosphorus Magnesium Iron TIBC Ferritin Total Bilirubin Direct Bilirubin AST ALT Alkaline Phosphatase Total Creatine Kinase CK-MB (CK-2) Troponin T C-Reactive Protein Serum Total Protein Total Protein Albumin 3.2 L Okxno-5-Urpnbimvs Hvpfa-5-Surnsqflf PEP Interpretation Triglycerides LDL Cholesterol Direct HDL Cholesterol Free T4 PTH Intact Urine WBC (Auto) Urine Creatinine Salicylates Acetaminophen Crossmatch 04/24/19 04/24/19 04/25/19 06:21 11:47 05:58 WBC 18.0 H RBC 2.98 L Hgb 8.3 L Hct 26.5 L MCV MCHC 31 L RDW 17.9 H Plt Count Lymph % (Auto) 10.1 L [place] % (Auto) Lymph # [place] # 0.9 H Eos # Seg Neutrophils % 82.8 H Seg Neuts % (Manual) Lymphocytes % (Manual) Monocytes % (Manual) Nucleated RBC % Seg Neutrophils # 15.0 H Seg Neutrophils # Man Lymphocytes # (Manual) Monocytes # (Manual) PT INR D-Dimer Heparin Anti-Xa Level POC ABG pH ABG pH POC ABG pCO2 POC ABG pO2 ABG pO2 ABG HCO3 ABG O2 Saturation ABG Base Excess ABG Hemoglobin Oxyhemoglobin Sodium Potassium Chloride Carbon Dioxide BUN Creatinine Glucose POC Glucose 132 H 106 H Lactic Acid Calcium Ionized Calcium Phosphorus Magnesium Iron TIBC Ferritin Total Bilirubin Direct Bilirubin AST ALT Alkaline Phosphatase Total Creatine Kinase CK-MB (CK-2) Troponin T C-Reactive Protein Serum Total Protein Total Protein Albumin Cigru-0-Wmcfyoiat Dbuaj-8-Iujcmoxll PEP Interpretation Triglycerides LDL Cholesterol Direct HDL Cholesterol Free T4 PTH Intact Urine WBC (Auto) Urine Creatinine Salicylates Acetaminophen Crossmatch 04/25/19 04/26/19 04/26/19 05:58 05:57 06:08 WBC RBC Hgb Hct MCV MCHC RDW Plt Count Lymph % (Auto) [place] % (Auto) Lymph # [place] # Eos # Seg Neutrophils % Seg Neuts % (Manual) Lymphocytes % (Manual) Monocytes % (Manual) Nucleated RBC % Seg Neutrophils # Seg Neutrophils # Man Lymphocytes # (Manual) Monocytes # (Manual) PT INR D-Dimer Heparin Anti-Xa Level POC ABG pH ABG pH POC ABG pCO2 POC ABG pO2 ABG pO2 ABG HCO3 ABG O2 Saturation ABG Base Excess ABG Hemoglobin Oxyhemoglobin Sodium Potassium 3.2 L Chloride Carbon Dioxide BUN 52 H 48 H Creatinine 3.2 H 2.9 H Glucose 108 H 112 H POC Glucose 109 H Lactic Acid Calcium 11.4 H 12.5 H* Ionized Calcium Phosphorus 5.90 H Magnesium Iron TIBC Ferritin Total Bilirubin Direct Bilirubin AST ALT Alkaline Phosphatase Total Creatine Kinase CK-MB (CK-2) Troponin T C-Reactive Protein Serum Total Protein Total Protein Albumin 3.0 L Tcqee-9-Mplniepsm Yixtm-4-Xbtqpwykx PEP Interpretation Triglycerides LDL Cholesterol Direct HDL Cholesterol Free T4 PTH Intact Urine WBC (Auto) Urine Creatinine Salicylates Acetaminophen Crossmatch 04/26/19 04/26/19 04/27/19 07:22 13:39 05:05 WBC 11.9 H RBC 3.01 L Hgb 8.6 L Hct 26.3 L MCV MCHC RDW 17.6 H Plt Count Lymph % (Auto) 11.9 L [place] % (Auto) Lymph # [place] # Eos # Seg Neutrophils % 78.3 H Seg Neuts % (Manual) Lymphocytes % (Manual) Monocytes % (Manual) Nucleated RBC % Seg Neutrophils # 9.4 H Seg Neutrophils # Man Lymphocytes # (Manual) Monocytes # (Manual) PT INR D-Dimer Heparin Anti-Xa Level POC ABG pH ABG pH POC ABG pCO2 POC ABG pO2 ABG pO2 ABG HCO3 ABG O2 Saturation ABG Base Excess ABG Hemoglobin Oxyhemoglobin Sodium Potassium Chloride Carbon Dioxide BUN 46 H Creatinine 2.8 H Glucose POC Glucose Lactic Acid Calcium > 13.0 H* 12.2 H* Ionized Calcium Phosphorus Magnesium Iron TIBC Ferritin Total Bilirubin Direct Bilirubin AST ALT Alkaline Phosphatase Total Creatine Kinase CK-MB (CK-2) Troponin T C-Reactive Protein Serum Total Protein Total Protein Albumin Tqzqi-9-Mfobigbpq Zcraw-2-Hrorotdhy PEP Interpretation Triglycerides LDL Cholesterol Direct HDL Cholesterol Free T4 PTH Intact Urine WBC (Auto) Urine Creatinine Salicylates Acetaminophen Crossmatch 04/27/19 04/28/19 04/29/19 05:05 05:17 14:14 WBC RBC Hgb Hct MCV MCHC RDW Plt Count Lymph % (Auto) [place] % (Auto) Lymph # [place] # Eos # Seg Neutrophils % Seg Neuts % (Manual) Lymphocytes % (Manual) Monocytes % (Manual) Nucleated RBC % Seg Neutrophils # Seg Neutrophils # Man Lymphocytes # (Manual) Monocytes # (Manual) PT INR D-Dimer Heparin Anti-Xa Level POC ABG pH ABG pH POC ABG pCO2 POC ABG pO2 ABG pO2 ABG HCO3 ABG O2 Saturation ABG Base Excess ABG Hemoglobin Oxyhemoglobin Sodium 136 L Potassium 3.2 L 3.4 L Chloride Carbon Dioxide BUN 40 H 34 H 33 H Creatinine 2.5 H 2.0 H 1.9 H Glucose 113 H 107 H POC Glucose Lactic Acid Calcium 12.3 H* 12.1 H* 11.5 H Ionized Calcium Phosphorus Magnesium Iron TIBC Ferritin Total Bilirubin Direct Bilirubin AST ALT Alkaline Phosphatase Total Creatine Kinase CK-MB (CK-2) Troponin T C-Reactive Protein Serum Total Protein Total Protein 6.2 L Albumin 2.8 L Hfwhf-7-Ftcmunxfp Fbjtr-3-Cztkjubca PEP Interpretation Triglycerides LDL Cholesterol Direct HDL Cholesterol Free T4 PTH Intact Urine WBC (Auto) Urine Creatinine Salicylates Acetaminophen Crossmatch 04/29/19 04/30/19 04/30/19 14:14 06:47 12:17 WBC RBC Hgb Hct MCV MCHC RDW Plt Count Lymph % (Auto) [place] % (Auto) Lymph # [place] # Eos # Seg Neutrophils % Seg Neuts % (Manual) Lymphocytes % (Manual) Monocytes % (Manual) Nucleated RBC % Seg Neutrophils # Seg Neutrophils # Man Lymphocytes # (Manual) Monocytes # (Manual) PT INR D-Dimer Heparin Anti-Xa Level POC ABG pH ABG pH POC ABG pCO2 POC ABG pO2 ABG pO2 ABG HCO3 ABG O2 Saturation ABG Base Excess ABG Hemoglobin Oxyhemoglobin Sodium Potassium 3.2 L Chloride Carbon Dioxide 21 L BUN 26 H Creatinine 1.8 H Glucose POC Glucose 106 H Lactic Acid Calcium 10.8 H Ionized Calcium Phosphorus Magnesium Iron TIBC Ferritin Total Bilirubin Direct Bilirubin AST ALT Alkaline Phosphatase Total Creatine Kinase CK-MB (CK-2) Troponin T C-Reactive Protein Serum Total Protein Total Protein Albumin [id number] [id number]-[id number] PEP Interpretation Triglycerides LDL Cholesterol Direct HDL Cholesterol Free T4 PTH Intact 8.83 L Urine WBC (Auto) Urine Creatinine Salicylates Acetaminophen Crossmatch 05/01/19 05/01/19 06:52 06:52 WBC 15.4 H RBC 3.01 L Hgb 8.4 L Hct 26.2 L MCV MCHC RDW 17.0 H Plt Count Lymph % (Auto) 8.4 L [place] % (Auto) 8.9 H Lymph # [place] # 1.4 H Eos # 0.5 H Seg Neutrophils % 78.7 H Seg Neuts % (Manual) Lymphocytes % (Manual) Monocytes % (Manual) Nucleated RBC % Seg Neutrophils # 12.1 H Seg Neutrophils # Man Lymphocytes # (Manual) Monocytes # (Manual) PT INR D-Dimer Heparin Anti-Xa Level POC ABG pH ABG pH POC ABG pCO2 POC ABG pO2 ABG pO2 ABG HCO3 ABG O2 Saturation ABG Base Excess ABG Hemoglobin Oxyhemoglobin Sodium Potassium 3.0 L Chloride Carbon Dioxide BUN 22 H Creatinine Glucose POC Glucose Lactic Acid Calcium 11.2 H Ionized Calcium Phosphorus Magnesium Iron TIBC Ferritin Total Bilirubin Direct Bilirubin AST ALT Alkaline Phosphatase Total Creatine Kinase CK-MB (CK-2) Troponin T C-Reactive Protein Serum Total Protein Total Protein Albumin 3.0 L Bpuuc-5-Dclclzfui Xefvy-8-Hepuxqjto PEP Interpretation Triglycerides LDL Cholesterol Direct HDL Cholesterol Free T4 PTH Intact Urine WBC (Auto) Urine Creatinine Salicylates Acetaminophen Crossmatch Allied health notes reviewed: nursing
--- NOTE | 2019-05-01 18:16 | Progress Note ---
Assessment and Plan Assessment and plan: Patient is a 43-year-old man with history of GERD, obesity and mental illness, who presented to [facility] ED on 03/16/2019 with altered mental status. He is visiting from [place] and was brought in by his friend. As per records per family he has been homeless [address] [place]. When he came to the ER, he was unable to speak or follow commands, in the ER he was found to have SVT with heart rate in the 250s. The patient was shocked and medicated. Also was confused, and had trouble protecting his airway; therefore, he was then intubated. He has had a prolonged hospital course. During this hospital course, he was found to have sepsis with septic shock, acute resp failure, rhabdomyolysis, RUBEN, and multisystem organ failure, toxic metabolic encephalopathy. He was started on hemodialysis, now off since 04/20/19. He is much improved * Initial rhythm appeared to be SVT * Per friend patient complaining of feeling ill and has some left eye discharge, cold, clammy and diaphrietic by the time arrived to the hospital. Also mentions a possibility of a right axilla abscess. The and went to stay with his girlfriend the last 2 days and this morning when he saw the patient he was ill-appearing but sleeping. * Currently on 4 pressors * Start on Elizabeth culture including coverage for possible Meningitis CHEST 1 VIEW . IMPRESSION: 1. Endotracheal tube in good position. 2. Nasogastric tube doubled back on itself at the level of the salina with the tip not seen. The tube will need to be removed/reposition. CT of the chest, abdomen and pelvis without contrast . IMPRESSION: 1. Parenchymal disease in both lower lobes posteromedially may be related to aspiration pneumonia. 2. Moderately dilated small bowel bowel loops in the mid to upper abdomen anteriorly with mild associated bowel wall thickening. Localized enteritis and small bowel ischemia should be considered. CT head/brain wo contrast. IMPRESSION: 1. Some component of diffuse cerebral edema cannot be excluded. However, this finding may be artifactual secondary to patient positioning. Close follow-up is recommended. No definitive signs of herniation or large territorial infarct at this time. 2. Otherwise, no focal mass, hemorrhage, hydrocephalus, or large infarct seen. * Goal of care * Continue aggressive PT/OT * Woundcare * Encourage Incentive spirometer use * awaiting placement Acute hypoxic respiratory failure. Was intubated, now extubated. Now on Room air. Continue BiPAP as clinically indicated. Right upper ext DVT: Unfortunately patient with clot adherent ulcer on EGD, Unable to irrigate out. H/H relatively stable and plt improved. Will recommend e levating upper ext. SVT with Polymorphic Vtach/Atrial fibrillation. Continue Metoprolol. Cardiology following. No systemic AC regarding AFib in setting of anemia, thrombocytopenia, GI bleed. Acute blood loss anemia. Patient with GI bleed secondary to peptic ulcer disease. EGD completed per GI. Continue PRBCs as needed. GI bleed/peptic ulcer disease. Continue PPI. Transfuse PRBCs as needed. Sepsis/septic shock. Completed Antoibiotics Right Axillary cellulitis/Suspect Aspiration pneumonia/Acute Cystitis: Antibiotics stopped. Fever, recurrent- Improved ID following Severe Metabolic Acidosis- Resolved Hypercalcemia: Slight improvement. 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 Elevated LFTs improved. Viral hepatitis panel negative Acute Kidney Failure secondary to ATN ANURIC. Patient off hemodialysis. Patient was started on hemodialysis on 03/18/19 due to worsening metabolic acidosis and hyperkalemia. Last dialysis on 04/20. Baseline renal function is unknown. CT abdomen was negative for obstructive nephropathy. Avoid nephrotoxic agents. Continue hemodialysis per nephrology. Toxic metabolic encephalopathy. Brain MRI showed no acute intracranial abnormality, mild nonspecific chronic white matter changes, fluid throughout the sinuses and mastoid air cells. Swelling both upper ext L>R Doppler US : no DVT LUE Repeat doppler Continue wound care Patient recieved fluids, will give calcium Left AC wound- Dressing in place, wound care following and proscribing management Hypokalemia. Corrected. Replete potassium as needed. Hypernatremia. Follow-up BMP, Nephrology following Now resolved Thrombocytopenia, Presume DIC. Etiology likely secondary to sepsis. Resolved. Rhabdomyolysis. CK normalized. Full code status Continue aggressive PT. Pysch input is noted Awaiting placement History Interval history: Feels better no more fever Upset abdomen Hospitalist Physical - Physical exam Narrative exam: Gen: Not in acute distress, lying in bed, morbidly obese HEENT: Normocephalic, atraumatic, NG tube Neck: supple, no JVD Heart: S1 and S2 irreg, no murmurs, rubs or gallop Lungs: Clear to auscultation, no rhonchi, no wheeze Abd: soft, non tender, non distended, normal BS, Ext: bilateral upper ext edema, L>R, no clubbing, no cyanosis, dressing over left elbow,eschar anterior left elbow Neuro: Awake, alert,oriented, moves all ext - Constitutional Vitals: Temp Pulse Resp BP Pulse Ox 98.1 F 91 H 20 111/71 95 05/01/19 10:57 05/01/19 14:22 05/01/19 10:57 05/01/19 14:22 05/01/19 10:57 General appearance: Present: obese Results - Labs CBC & Chem 7: 05/02/19 05:57 05/02/19 05:57 Labs: Laboratory Last Values WBC 15.4 K/mm3 (4.5-11.0) H 05/01/19 06:52 RBC 3.01 M/mm3 (3.65-5.03) L 05/01/19 06:52 Hgb 8.4 gm/dl (11.8-15.2) L 05/01/19 06:52 Hct 26.2 % (35.5-45.6) L 05/01/19 06:52 MCV 87 fl (84-94) 05/01/19 06:52 MCH 28 pg (28-32) 05/01/19 06:52 MCHC 32 % (32-34) 05/01/19 06:52 RDW 17.0 % (13.2-15.2) H 05/01/19 06:52 Plt Count 310 K/mm3 (140-440) 05/01/19 06:52 Lymph % (Auto) 8.4 % (13.4-35.0) L 05/01/19 06:52 [place] % (Auto) 8.9 % (0.0-7.3) H 05/01/19 06:52 Eos % (Auto) 3.4 % (0.0-4.3) 05/01/19 06:52 Baso % (Auto) 0.6 % (0.0-1.8) 05/01/19 06:52 Lymph # 1.3 K/mm3 (1.2-5.4) 05/01/19 06:52 [place] # 1.4 K/mm3 (0.0-0.8) H 05/01/19 06:52 Eos # 0.5 K/mm3 (0.0-0.4) H 05/01/19 06:52 Baso # 0.1 K/mm3 (0.0-0.1) 05/01/19 06:52 Add Manual Diff Complete 04/11/19 04:16 Total Counted 100 04/11/19 04:16 Seg Neutrophils % 78.7 % (40.0-70.0) H 05/01/19 06:52 Seg Neuts % (Manual) 71.0 % (40.0-70.0) H 04/11/19 04:16 Band Neutrophils % 1.0 % 04/11/19 04:16 Lymphocytes % (Manual) 17.0 % (13.4-35.0) 04/11/19 04:16 Reactive Lymphs % (Man) 0 % 04/11/19 04:16 Monocytes % (Manual) 8.0 % (0.0-7.3) H 04/11/19 04:16 Eosinophils % (Manual) 2.0 % (0.0-4.3) 04/11/19 04:16 Basophils % (Manual) 1.0 % (0.0-1.8) 04/11/19 04:16 Metamyelocytes % 0 % 04/11/19 04:16 Myelocytes % 0 % 04/11/19 04:16 Promyelocytes % 0 % 04/11/19 04:16 Blast Cells % 0 % 04/11/19 04:16 Nucleated RBC % Not Reportable 04/11/19 04:16 Seg Neutrophils # 12.1 K/mm3 (1.8-7.7) H 05/01/19 06:52 Seg Neutrophils # Man 8.2 K/mm3 (1.8-7.7) H 04/11/19 04:16 Band Neutrophils # 0.1 K/mm3 04/11/19 04:16 Lymphocytes # (Manual) 2.0 K/mm3 (1.2-5.4) 04/11/19 04:16 Abs React Lymphs (Man) 0.0 K/mm3 04/11/19 04:16 Monocytes # (Manual) 0.9 K/mm3 (0.0-0.8) H 04/11/19 04:16 Eosinophils # (Manual) 0.2 K/mm3 (0.0-0.4) 04/11/19 04:16 Basophils # (Manual) 0.1 K/mm3 (0.0-0.1) 04/11/19 04:16 Metamyelocytes # 0.0 K/mm3 04/11/19 04:16 Myelocytes # 0.0 K/mm3 04/11/19 04:16 Promyelocytes # 0.0 K/mm3 04/11/19 04:16 Blast Cells # 0.0 K/mm3 04/11/19 04:16 WBC Morphology Not Reportable 04/11/19 04:16 Hypersegmented Neuts Not Reportable 04/11/19 04:16 Hyposegmented Neuts Not Reportable 04/11/19 04:16 Hypogranular Neuts Not Reportable 04/11/19 04:16 Smudge Cells Not Reportable 04/11/19 04:16 Toxic Granulation Not Reportable 04/11/19 04:16 Toxic Vacuolation Not Reportable 04/11/19 04:16 Dohle Bodies Not Reportable 04/11/19 04:16 Pelger-Huet Anomaly Not Reportable 04/11/19 04:16 Joyce Rods Not Reportable 04/11/19 04:16 Platelet Estimate Consistent w auto 04/11/19 04:16 Clumped Platelets Not Reportable 04/11/19 04:16 Plt Clumps, EDTA Not Reportable 04/11/19 04:16 Large Platelets Not Reportable 04/11/19 04:16 Giant Platelets Not Reportable 04/11/19 04:16 Platelet Satelliting Not Reportable 04/11/19 04:16 Plt Morphology Comment Not Reportable 04/11/19 04:16 RBC Morphology Not Reportable 04/11/19 04:16 Dimorphic RBCs Not Reportable 04/11/19 04:16 Polychromasia Not Reportable 04/11/19 04:16 Hypochromasia Not Reportable 04/11/19 04:16 Poikilocytosis Not Reportable 04/11/19 04:16 Anisocytosis Rare 04/11/19 04:16 Microcytosis Rare 04/11/19 04:16 Macrocytosis Not Reportable 04/11/19 04:16 Spherocytes Not Reportable 04/11/19 04:16 Pappenheimer Bodies Not Reportable 04/11/19 04:16 Sickle Cells Not Reportable 04/11/19 04:16 Target Cells Not Reportable 04/11/19 04:16 Tear Drop Cells Not Reportable 04/11/19 04:16 Ovalocytes Not Reportable 04/11/19 04:16 Stomatocytes Few 03/26/19 Unknown Helmet Cells Not Reportable 04/11/19 04:16 Shrestha-Vicco Bodies Not Reportable 04/11/19 04:16 [place] Rings Not Reportable 04/11/19 04:16 [place] Cells Not Reportable 04/11/19 04:16 Bite Cells Not Reportable 04/11/19 04:16 Crenated Cell Not Reportable 04/11/19 04:16 Elliptocytes Not Reportable 04/11/19 04:16 Acanthocytes (Spur) Not Reportable 04/11/19 04:16 Rouleaux Not Reportable 04/11/19 04:16 Hemoglobin C Crystals Not Reportable 04/11/19 04:16 Schistocytes Not Reportable 04/11/19 04:16 Malaria parasites Not Reportable 04/11/19 04:16 Phil Bodies Not Reportable 04/11/19 04:16 Hem Pathologist Commnt No 04/11/19 04:16 PT 15.3 Sec. (12.2-14.9) H 03/29/19 11:48 INR 1.24 (0.87-1.13) H 03/29/19 11:48 APTT 26.6 Sec. (24.2-36.6) 03/28/19 12:00 Fibrinogen 226 mg/dl (211-480) 03/28/19 12:00 D-Dimer 4845.98 ng/mlDDU (0-234) H 03/28/19 12:00 Heparin Anti-Xa Level 0.23 U.I./ml (0.3-0.7) L 03/28/19 05:13 POC ABG pH 7.401 (7.35-7.45) 04/07/19 12:57 ABG pH 7.388 pH Units (7.350-7.450) 04/06/19 05:20 POC ABG pCO2 41.5 (35-45) 04/07/19 12:57 ABG pCO2 38.5 mm Hg 04/06/19 05:20 POC ABG pO2 107 (80-105) H 04/07/19 12:57 ABG pO2 104.0 mm Hg (80.0-90.0) H 04/06/19 05:20 POC ABG HCO3 25.7 (22-26 mml/L) 04/07/19 12:57 ABG HCO3 22.6 mmol/L (20.0-26.0) 04/06/19 05:20 POC ABG Total CO2 27 (23-27mmol/L) 04/07/19 12:57 POC ABG O2 Sat 98 04/07/19 12:57 ABG O2 Saturation 97.8 % (95.0-99.0) 04/06/19 05:20 ABG O2 Content 10.0 (0.0-44) 04/06/19 05:20 POC ABG Base Excess 1 ((-2) - (+3)mmol/L) 04/07/19 12:57 ABG Base Excess -2.1 mmol/L (-2.0-3.0) L 04/06/19 05:20 ABG Hemoglobin 7.3 gm/dl (14.0-18.0) L 04/06/19 05:20 ABG Carboxyhemoglobin 1.7 % (0.0-5.0) 04/06/19 05:20 ABG Methemoglobin 0.6 % (0.0-1.5) 04/06/19 05:20 Oxyhemoglobin 95.5 % (95.0-99.0) 04/06/19 05:20 FiO2 30 % 04/07/19 12:57 Sodium 137 mmol/L (137-145) 05/01/19 06:52 Potassium 3.0 mmol/L (3.6-5.0) L 05/01/19 06:52 Chloride 100.1 mmol/L (98-107) 05/01/19 06:52 Carbon Dioxide 24 mmol/L (22-30) 05/01/19 06:52 Anion Gap 16 mmol/L 05/01/19 06:52 BUN 22 mg/dL (9-20) H 05/01/19 06:52 Creatinine 1.4 mg/dL (0.8-1.5) 05/01/19 06:52 Estimated GFR 55 ml/min 05/01/19 06:52 BUN/Creatinine Ratio 16 % 05/01/19 06:52 Glucose 95 mg/dL (75-100) 05/01/19 06:52 POC Glucose 77 (70-105) 05/01/19 11:49 Lactic Acid 1.90 mmol/L (0.7-2.0) 03/21/19 21:31 Calcium 11.2 mg/dL (8.4-10.2) H 05/01/19 06:52 Ionized Calcium 7.2 mg/dL (4.8-5.6) H* 04/29/19 14:14 Phosphorus 5.90 mg/dL (2.5-4.5) H 04/26/19 05:57 Magnesium 1.90 mg/dL (1.7-2.3) 04/26/19 05:57 Iron 26 ug/dL (49-181) L 04/02/19 05:03 TIBC 138 mcg/dL (250-450) L 04/02/19 05:03 Ferritin 607.0 ng/mL (13.0-400.0) H 04/02/19 05:03 Total Bilirubin 0.50 mg/dL (0.1-1.2) 05/01/19 06:52 Direct Bilirubin 0.4 mg/dL (0-0.2) H 03/31/19 08:20 Indirect Bilirubin 0.1 mg/dL 03/31/19 08:20 AST 11 units/L (5-40) 05/01/19 06:52 ALT 7 units/L (7-56) 05/01/19 06:52 Alkaline Phosphatase 54 units/L (35-129) 05/01/19 06:52 Total Creatine Kinase 62 units/L (55-170) 04/07/19 05:40 CK-MB (CK-2) 54.3 ng/mL (0.0-4.0) H 03/17/19 07:16 CK-MB (CK-2) Rel Index 0.0 (0-4) 03/17/19 07:16 Troponin T 0.058 ng/mL (0.00-0.029) H 03/17/19 07:16 C-Reactive Protein 7.10 mg/dL (0.00-1.30) H 04/17/19 04:15 Serum Total Protein 5.7 g/dL (6.1-8.1) L 04/21/19 04:22 Total Protein 6.3 g/dL (6.3-8.2) 05/01/19 06:52 Albumin 3.0 g/dL (3.9-5) L 05/01/19 06:52 Albumin/Globulin Ratio 0.9 % 05/01/19 06:52 Cekun-3-Emknzaznx 0.5 g/dL (0.2-0.3) H 04/21/19 04:22 Wkelq-6-Iaqmqbhfy 1.0 g/dL (0.5-0.9) H 04/21/19 04:22 Beta Globulins 0.4 g/dL (0.2-0.5) 04/21/19 04:22 Gamma Globulins 1.1 g/dL (0.8-1.7) 04/21/19 04:22 Abnorm Protein Band 1 see below 04/21/19 04:22 PEP Interpretation see below H 04/21/19 04:22 Triglycerides 309 mg/dL (2-149) H 03/29/19 06:22 Cholesterol 88 mg/dL (50-199) 03/16/19 22:32 LDL Cholesterol Direct 10 mg/dL (50-130) L 03/16/19 22:32 HDL Cholesterol 7 mg/dL (40-59) L 03/16/19 22:32 Cholesterol/HDL Ratio 12.57 % 03/16/19 22:32 Vitamin B12 903.0 pg/mL (211-911) 04/02/19 05:03 Folate 8.05 ng/mL (7.3-26.0) 04/02/19 05:03 Procalcitonin 25.42 ng/mL (<0.15) 03/27/19 19:21 TSH 2.200 mlU/mL (0.270-4.200) 03/16/19 17:05 Free T4 0.72 ng/dL (0.76-1.46) L 03/16/19 17:05 PTH Intact 8.83 pg/mL (15-65) L 04/29/19 14:14 Urine Color Yellow (Yellow) 04/15/19 22:11 Urine Turbidity Clear (Clear) 04/15/19 22:11 Urine pH 6.0 (5.0-7.0) 04/15/19 22:11 Ur Specific [place] 1.010 (1.003-1.030) 04/15/19 22:11 Urine Protein 30 mg/dl mg/dL (Negative) 04/15/19 22:11 Urine Glucose (UA) Neg mg/dL (Negative) 04/15/19 22:11 Urine Ketones Neg mg/dL (Negative) 04/15/19 22:11 Urine Blood Mod (Negative) 04/15/19 22:11 Urine Nitrite Neg (Negative) 04/15/19 22:11 Urine Bilirubin Neg (Negative) 04/15/19 22:11 Urine Urobilinogen < 2.0 mg/dL (<2.0) 04/15/19 22:11 Ur Leukocyte Esterase Neg (Negative) 04/15/19 22:11 Urine WBC (Auto) 4.0 /HPF (0.0-6.0) 04/15/19 22:11 Urine RBC (Auto) 2.0 /HPF (0.0-6.0) 04/15/19 22:11 U Epithel Cells (Auto) < 1.0 /HPF (0-13.0) 04/15/19 22:11 Amorphous Crystals 1+ 04/05/19 16:50 Urine Mucus Few /HPF 03/17/19 16:05 Urine Sperm 2+ /HPF (CAFETERIA COOK) 03/17/19 16:05 Urine Eosinophils None seen (None Seen) 03/17/19 16:05 Urine Creatinine 106.6 mg/dL (0.1-20.0) H 03/17/19 16:05 Urine Sodium 95 mmol/L 03/17/19 16:05 Vancomycin Trough 11.5 ug/mL (5.0-20.0) 03/18/19 13:19 Random Vancomycin 10.8 ug/mL (0-40.0) 04/14/19 03:55 Salicylates < 0.3 mg/dL (2.8-20.0) L 03/16/19 17:05 Urine Opiates Screen Presumptive negative 03/17/19 16:05 Urine Methadone Screen Presumptive negative 03/17/19 16:05 Acetaminophen < 5.0 ug/mL (10.0-30.0) L 03/16/19 17:05 Ur Barbiturates Screen Presumptive negative 03/17/19 16:05 Ur Phencyclidine Scrn Presumptive negative 03/17/19 16:05 Ur Amphetamines Screen Presumptive negative 03/17/19 16:05 U Benzodiazepines Scrn Presumptive positive 03/17/19 16:05 Urine Cocaine Screen Presumptive negative 03/17/19 16:05 U Marijuana (THC) Screen Presumptive negative 03/17/19 16:05 Drugs of Abuse Note Disclamer 03/17/19 16:05 Plasma/Serum Alcohol < 0.01 % (0-0.07) 03/16/19 17:05 LANDY Screen Negative (Negative) 04/17/19 04:15 Proteinase 3 (PR3) Ab <1.0 AI (<1.0) 04/21/19 04:22 Myeloperoxidase Ab <1.0 AI (<1.0) 04/21/19 04:22 Complement C3 150 mg/dL (82-185) 04/17/19 04:15 Complement C4 37 mg/dL (15-53) 04/17/19 04:15 Hepatitis A IgM Ab Non-reactive (NonReactive) 04/18/19 10:02 Hep Bs Antigen Non-reactive (Negative) 04/18/19 10:02 Hep B Core IgM Ab Non-reactive (NonReactive) 04/18/19 10:02 Hepatitis C Antibody Non-reactive (NonReactive) 04/18/19 10:02 HIV 1&2 Antibody Rapid Non react (Non React) 03/17/19 11:52 HIV P24 Antigen Non react (Non React) 03/17/19 11:52 Influenza A (Rapid) Negative (Negative) 03/17/19 17:00 Influenza B (Rapid) Negative (Negative) 03/17/19 17:00 Group A Strep Rapid Negative (Negative) 03/17/19 17:00 Miscellaneous Test Flexitest 1 03/21/19 12:00 Blood Type A POSITIVE 04/02/19 16:34 Antibody Screen Negative 04/02/19 16:34 Crossmatch See Detail 04/02/19 16:34 Active Medications - Current Medications Current Medications: Generic Name Dose Route Start Last Admin Trade Name Freq PRN Reason Stop Dose Admin Acetaminophen 650 mg 04/02/19 23:26 04/30/19 11:16 Tylenol PO 650 mg Q4H PRN Administration Pain, Mild (1-3),temp>100.5 Al Hydrox/Mg Hydrox/Simethicone 15 ml 04/30/19 15:15 04/30/19 15:53 Alum-Mag Hydrox-Simeth 739-138-87tb/5ml PO 15 ml Q4H PRN Administration Indigestion Albuterol 2.5 mg 03/29/19 13:08 Proventil IH Q4HRT PRN Shortness Of Breath Amiodarone HCl 200 mg 04/15/19 22:00 05/01/19 10:59 Cordarone PO 200 mg BID PAOLO Administration Lipase/Protease/Amylase 1 each 04/20/19 13:17 Pancreaze 10,500 Unit FEEDTUBE PRN PRN For Clogged Feeding Tube Bacitracin 1 applic 04/17/19 08:00 Antibiotic Oint TP Q4H PRN upper lip sore/open Dextrose 50 gm 04/17/19 08:00 D50w (25gm) Vial IV Q1H PRN Hypoglycemia Hydralazine HCl 20 mg 04/14/19 03:00 04/14/19 03:11 Apresoline IV 20 mg Q4H PRN Administration hypertemsion Hydrophilic Ointment 1 applic 03/16/19 15:50 04/19/19 18:24 Vaseline Lip Therapy TP 1 applic Q2HR PRN Administration Dry Lips Sodium Chloride 100 mls @ 999 mls/hr 04/20/19 08:41 Nacl 0.9% IV NEYMAR PRN Hypotension Lansoprazole 30 mg 04/11/19 10:00 05/01/19 11:05 Prevacid Solutab FEEDTUBE 30 mg BID PAOLO Administration Melatonin 5 mg 04/26/19 21:00 04/26/19 23:07 Melatonin PO 5 mg QHS PRN Administration Sleep Metoprolol Tartrate 5 mg 04/16/19 22:24 04/22/19 00:20 Lopressor IV 5 mg Q6H PRN Administration For HR >120 Metoprolol Tartrate 25 mg 04/17/19 20:00 05/01/19 14:22 Lopressor PO 25 mg TID PAOLO Administration Multi-Ingred Cream/Lotion/Oil/Oint 1 applic 03/16/19 15:50 03/19/19 20:10 Artificial Tears Ophth Oint OU 1 applic Q4HR PRN Administration Dry Eye(s) Simple Syrup 15 ml 10/25/19 13:17 Simple Syrup FEEDTUBE PRN PRN Hypoglycemia Simple Syrup 30 ml 04/20/19 13:29 05/01/19 17:57 Simple Syrup FEEDTUBE 30 ml PRN PRN Administration Hypoglycemia Sodium Bicarbonate 325 mg 04/20/19 13:17 04/27/19 11:03 Sodium Bicarbonate FEEDTUBE 325 mg PRN PRN Administration For Clogged Feeding Tube Sodium Hypochlorite 1 applic 04/18/19 11:00 05/01/19 11:20 Dakin's Half Strength TP 1 applicatio BID PAOLO Administration Nutrition/Malnutrition Assess - Dietary Evaluation Nutrition/Malnutrition Findings: Nutrition Notes Start: 03/17/19 14:22 Freq: Status: Active Protocol: Document 04/30/19 16:38 RM (Rec: 04/30/19 16:43 RM [id number]) Nutrition Notes Initial or Follow up Reassessment Current Diagnosis Acute Kidney Injury,Heart Failure Other Pertinent Diagnosis on HD, Septic shock,Multiple organ failure, encephalopathy, Aspiration pneu Current Diet Mechanical Soft Diet w/Ensure Clear 1 daily Labs/Tests Reviewed Pertinent Medications Reviewed Height 6 ft Weight 146.8 kg [place] Body Weight (kg) 80.90 BMI 43.9 Subjective/Other Information Pt stated that his appetite is good but he is not eating the meals d/t disliking them. Stated that he just drinks the Ensure Clear and eats jello. Noted preferences. Percent of energy/protein needs met: 12%/7% (from Ensure Clear) Burn Absent Trauma Absent Minimum of two criteria No #1 Nutrition Diagnosis Inadequate oral intake Diagnosis Progress(for reassessment Continues documentation) Is patient on ventilator? No Is Patient Ambulatory and/or Out of Bed No REE-([facility]-confined to bed) 2871.756 Kcal/Kg value to use for calculation 14 Approximate Energy Requirements Using 2054 kcal/Kg Calculation Used for Recommendations Kcal/kg Additional Notes Protein: 116-145g (1.2-1.5g/kg , AjdBW 97 kg) Fluids:1 ml/kcal or per MD Nutrition Intervention Change Diet Order: Continue Current Diet Add Supplement/Snack (indicate name/kcal Ensure Clear BID /protein ) Provides kCal: 480 Provides Protein (gm) 16 Goal #1 Meet least 75% of kcal/PRO needs via PO and ONS intakes Anticipated Discharge Needs: Unable to determine at this time Follow-Up By: 05/02/19 Additional Comments Follow for PO and ONS intakes
[2019-05-01] MEDS: MELATONIN 5 MG TAB PO PRN (23:54)
[2019-05-02 06:31] LABS: Hemoglobin 8.3 gm/dl (11.8-15.2); Mean Corpuscular HGB Conc 32 % (32-34); Mean Corpuscular Volume 88 fl (84-94); Platelet Count 300 K/mm3 (140-440); Red Blood Count 2.96 M/mm3 (3.65-5.03); Red Cell Distribution Width 16.8 % (13.2-15.2)
[2019-05-02 07:06] LABS: Calcium 11.1 mg/dL (8.4-10.2)
[2019-05-02] MEDS: LANSOPRAZOLE 30 MG SOLUTAB FEEDTUBE SCH ×2 (09:24→22:31)
[2019-05-02] MEDS: AMIODARONE 200 MG TAB PO SCH ×2 (09:24→22:31)
[2019-05-02] MEDS: METOPROLOL TARTRATE 25 MG TAB PO SCH ×3 (09:24→22:32)
[2019-05-02] MEDS: SODIUM HYPOCHLORITE, DAKIN'S 1/2 STRENGTH (0.25%) 473 ML TOPICAL SOLN TP SCH (09:25)
[2019-05-02] MEDS ORDERED: POTASSIUM CHLORIDE ER 20 MEQ TAB PO ONE (10:00)
--- NOTE | 2019-05-02 10:06 | Progress Note ---
Assessment and Plan Cont present cardiac management. Pt remains in NSR. No systemic AC regarding AFib in setting of anemia, thrombocytopenia, recent GI bleed. Plan for lexiscan MPI stress test in AM. NPO after MN. The patient has been seen in conjunction with Dr. Echavarria who agrees with the assessment and plan of care. - Patient Problems (1) Cardiopulmonary arrest Current Visit: Yes Status: Acute (2) Acute respiratory failure Current Visit: Yes Status: Acute Qualifiers: Respiratory failure complication: hypoxia Qualified Code(s): J96.01 - Acute respiratory failure with hypoxia (3) Paroxysmal atrial fibrillation with RVR Current Visit: Yes Status: Acute (4) SVT (supraventricular tachycardia) Current Visit: Yes Status: Acute (5) Torsades de pointes Current Visit: Yes Status: Acute (6) Ventricular tachycardia Current Visit: Yes Status: Acute (7) Encephalopathy Current Visit: Yes Status: Acute (8) Septic shock Current Visit: Yes Status: Acute (9) Aspiration pneumonia Current Visit: Yes Status: Acute Qualifiers: Aspiration pneumonia type: unspecified (10) Meningitis Current Visit: Yes Status: Suspected (11) Cellulitis Current Visit: Yes Status: Acute (12) Acute renal failure Current Visit: Yes Status: Acute Qualifiers: Acute renal failure type: with acute tubular necrosis Qualified Code(s): N17.0 - Acute kidney failure with tubular necrosis (13) GI bleed Current Visit: Yes Status: Acute (14) Anemia Current Visit: Yes Status: Acute (15) Thrombocytopenia Current Visit: Yes Status: Resolved (16) DVT (deep venous thrombosis) Current Visit: Yes Status: Acute Subjective Date of service: 05/02/19 Principal diagnosis: anemia - DVT rt IJ Interval history: pt resting in bed, awake and alert, in SR. Objective Last Vital Signs Temp 98.0 F 05/02/19 04:22 Pulse 94 H 05/02/19 09:24 Resp 18 05/02/19 04:22 BP 102/53 05/02/19 09:24 Pulse Ox 96 05/02/19 04:22 - Physical Examination General: No Apparent Distress HEENT: Positive: PERRL, EOMI, Normocephaly, Mucus Membranes Moist Neck: Positive: neck supple, trachea midline Cardiac: Positive: Reg Rate and Rhythm, S1/S2 Lungs: Positive: Decreased Breath Sounds Neuro: Positive: Grossly Intact, Other Abdomen: Positive: Soft, Active Bowel Sounds. Negative: Tender /Rectal: Other (deferred) Skin: Positive: Clear. Negative: Rash Musculoskeletal: Normal Range of Motion, other (LUE swollen ) Extremities: Present: +3 Edema (LUE). Absent: edema - Labs and Meds CBC 05/02/19 Range/Units 05:57 WBC 14.2 H (4.5-11.0) K/mm3 RBC 2.96 L (3.65-5.03) M/mm3 Hgb 8.3 L (11.8-15.2) gm/dl Hct 26.0 L (35.5-45.6) % Plt Count 300 (140-440) K/mm3 Comprehensive Metabolic Panel 05/02/19 Range/Units 05:57 Sodium 136 L (137-145) mmol/L Potassium 3.5 L (3.6-5.0) mmol/L Chloride 98.8 (98-107) mmol/L Carbon Dioxide 22 (22-30) mmol/L BUN 21 H (9-20) mg/dL Creatinine 1.3 (0.8-1.5) mg/dL Glucose 88 (75-100) mg/dL Calcium 11.1 H (8.4-10.2) mg/dL - Imaging and Cardiology Echo: report reviewed ( EF 40-45%, impaired relaxation. ) - EKG Sinus rhythms and dysrhythmias: sinus rhythm - Allied health notes Allied health notes reviewed: nursing
--- NOTE | 2019-05-02 11:36 | Progress Note ---
Assessment and Plan 1. Acute kidney injury: Vasomotor RUBEN in the setting of shock / volume depletion / Rhabdo. Baseline renal function is unknown. CT abdomen was negative for obstructive nephropathy. Patient was started on hemodialysis on 03/18/19 due to worsening metabolic acidosis and hyperkalemia. Hemodialysis: 03/18, 03/19, 03/20, 03/22, 03/23, 03/24, 03/26, 03/28, 03/29, 03/31, 04/02, 04/04, 04/06, 04/09, 04/11, 04/13, 04/18, 04/20. Monitor for [employer] needs. Renal function continue to improve. Monitor renal function. Avoid nephrotoxic agents. Meds dosage based on GFR. 2. FEN: Hypercalcemia, multifactorial etiology. Contributing factor includes immobilization. Patient previously received high dose Vitamin D and activated Vit.D for hypocalcemia. PTH level low. Ionized Calcium and Vit.D level pending. S/p Pamidronate on 04/26 and Calcitonin. Calcium level is improving. Replete K. Monitor lytes. 3. Septic shock: Currently off pressors. Recurrent fever. Per ID recommendation the dialysis catheter was removed on 04/20. 4. Rhabdomyolysis: Improved. 5. A.fib with RVR: On Amiodarone and Metoprolol. 6. Respiratory failure: Extubated. 7. Severe anemia: S/p PRBC and Epogen. 8. Elevated transaminases: Improved. 9. Encephalopathy: Improved. Examination: General appearance: well-developed, appears stated age, obese, not in distress HEENT: Atraumatic EYES: Pupils reacting to light Neck: supple Respiratory: ctab Cardiology: regular, S1S2 heard, no murmur Gastrointestinal: obese, BS heard, not tender Integumentary: no rash noted Neurologic: alert, follows command, conversing, oriented Ext: L UE edema is better Skin: L elbow area wound Hemodialysis access: None Subjective Date of service: 05/02/19 Principal diagnosis: anemia - DVT rt IJ Interval history: Patient was seen and examined at the bedside. Doing ok. Objective - Vital Signs Vital signs: Vital Signs - 12hr 05/02/19 05/02/19 04:22 09:24 Temperature 98.0 F Pulse Rate 83 94 H Respiratory 18 Rate Blood Pressure 114/59 102/53 O2 Sat by Pulse 96 Oximetry - Lab 05/02/19 05:57 05/02/19 05:57 Most recent lab results ABG pH 7.388 pH Units (7.350-7.450) 04/06/19 05:20 ABG pCO2 38.5 mm Hg 04/06/19 05:20 ABG pO2 104.0 mm Hg (80.0-90.0) H 04/06/19 05:20 ABG HCO3 22.6 mmol/L (20.0-26.0) 04/06/19 05:20 ABG O2 Saturation 97.8 % (95.0-99.0) 04/06/19 05:20 Calcium 11.1 mg/dL (8.4-10.2) H 05/02/19 05:57 Phosphorus 5.90 mg/dL (2.5-4.5) H 04/26/19 05:57 Magnesium 1.90 mg/dL (1.7-2.3) 04/26/19 05:57 Urine Creatinine 106.6 mg/dL (0.1-20.0) H 03/17/19 16:05 Urine Sodium 95 mmol/L 03/17/19 16:05 Medications & Allergies - Medications Allergies/Adverse Reactions: Allergies No Known Allergies Allergy (Unverified 03/16/19 17:17) Home Medications: Home Medications Medication Instructions Recorded Confirmed Last Taken Type No Known Home Medications [No 04/28/19 04/28/19 Unknown History Reported Home Medications] Active Medications: Generic Name Dose Route Start Last Admin Trade Name Freq PRN Reason Stop Dose Admin Acetaminophen 650 mg 04/02/19 23:26 04/30/19 11:16 Tylenol PO 650 mg Q4H PRN Administration Pain, Mild (1-3),temp>100.5 Al Hydrox/Mg Hydrox/Simethicone 15 ml 04/30/19 15:15 04/30/19 15:53 Alum-Mag Hydrox-Simeth 496-120-14jd/5ml PO 15 ml Q4H PRN Administration Indigestion Albuterol 2.5 mg 03/29/19 13:08 Proventil IH Q4HRT PRN Shortness Of Breath Amiodarone HCl 200 mg 04/15/19 22:00 05/02/19 09:24 Cordarone PO 200 mg BID PAOLO Administration Lipase/Protease/Amylase 1 each 04/20/19 13:17 Sanjay Purcell 10,500 Unit FEEDTUBE PRN PRN For Clogged Feeding Tube Bacitracin 1 applic 04/17/19 08:00 Antibiotic Oint TP Q4H PRN upper lip sore/open Dextrose 50 gm 04/17/19 08:00 D50w (25gm) Vial IV Q1H PRN Hypoglycemia Hydralazine HCl 20 mg 04/14/19 03:00 04/14/19 03:11 Apresoline IV 20 mg Q4H PRN Administration hypertemsion Hydrophilic Ointment 1 applic 03/16/19 15:50 04/19/19 18:24 Vaseline Lip Therapy TP 1 applic Q2HR PRN Administration Dry Lips Sodium Chloride 100 mls @ 999 mls/hr 04/20/19 08:41 Nacl 0.9% IV NEYMAR PRN Hypotension Lansoprazole 30 mg 04/11/19 10:00 05/02/19 09:24 Prevacid Solutab FEEDTUBE 30 mg BID PAOLO Administration Melatonin 5 mg 04/26/19 21:00 05/01/19 23:54 Melatonin PO 5 mg QHS PRN Administration Sleep Metoprolol Tartrate 5 mg 04/16/19 22:24 04/22/19 00:20 Lopressor IV 5 mg Q6H PRN Administration For HR >120 Metoprolol Tartrate 25 mg 04/17/19 20:00 05/02/19 09:24 Lopressor PO 25 mg TID PAOLO Administration Multi-Ingred Cream/Lotion/Oil/Oint 1 applic 03/16/19 15:50 03/19/19 20:10 Artificial Tears Ophth Oint OU 1 applic Q4HR PRN Administration Dry Eye(s) Simple Syrup 15 ml 04/20/19 13:17 Simple Syrup FEEDTUBE PRN PRN Hypoglycemia Simple Syrup 30 ml 04/20/19 13:29 05/01/19 17:57 Simple Syrup FEEDTUBE 30 ml PRN PRN Administration Hypoglycemia Sodium Bicarbonate 325 mg 04/20/19 13:17 04/27/19 11:03 Sodium Bicarbonate FEEDTUBE 325 mg PRN PRN Administration For Clogged Feeding Tube Sodium Hypochlorite 1 applic 04/18/19 11:00 05/02/19 09:25 Dakin's Half Strength TP 1 applicatio BID PAOLO Administration
[2019-05-02 12:30] LABS: Vitamin D, 25-OH, D2 <4 ng/mL
[2019-05-02] MEDS: HYDROcodone/ACETAMINOPHEN 5-325 MG TAB PO PRN (12:58)
--- NOTE | 2019-05-02 13:31 | Progress Note ---
Assessment and Plan Patient awake and more oriented. Patient Presently is 2 litres o2. O2 saturation is 91%. No acute respiratory distress. Patient afebrile and has leukocytosis. Patients heart rate and blood pressure running good. Patients calcium still high, 11.1. Patient receiving normal saline. - Patient Problems (1) Acute respiratory failure Current Visit: Yes Status: Acute Qualifiers: Respiratory failure complication: hypoxia Qualified Code(s): J96.01 - Acute respiratory failure with hypoxia Plan to address problem: O2 2L as needed for shortness of breath or desaturation. Albuterol/atrovent aerosol treatments q 6 hours. Continue Prevacid. Recommend DVT prophylaxis. SCDs (2) Altered mental status Current Visit: Yes Status: Acute Qualifiers: Altered mental status type: unspecified Qualified Code(s): R41.82 - Altered mental status, unspecified Plan to address problem: Management as per primary care and neurology. (3) Atrial fibrillation with RVR Current Visit: Yes Status: Acute Plan to address problem: Management as per cardiology. (4) Cardiopulmonary arrest Current Visit: Yes Status: Acute Plan to address problem: Patient resuscitated. Presently resting on 2 litres o2. (5) Acute renal failure Current Visit: Yes Status: Acute Qualifiers: Acute renal failure type: with acute tubular necrosis Qualified Code(s): N17.0 - Acute kidney failure with tubular necrosis Plan to address problem: Management as per nephrology. (6) Aspiration pneumonia Current Visit: Yes Status: Acute Qualifiers: Aspiration pneumonia type: unspecified Plan to address problem: Patient treated with Azactam and zyvox. (7) GI bleed Current Visit: Yes Status: Acute Plan to address problem: Management as per gastroenterology. Subjective Date of service: 05/02/19 Principal diagnosis: anemia - DVT rt IJ Interval history: Patient awake and more oriented. Patient Presently is 2 litres o2. O2 saturation is 91%. No acute respiratory distress. Patient afebrile and has leukocytosis. Patients heart rate and blood pressure running good. Patients calcium still high, 11.1. Patient receiving normal saline. Objective Vital Signs - 12hr 05/02/19 05/02/19 05/02/19 04:22 09:23 09:24 Temperature 98.0 F Pulse Rate 83 94 H Respiratory 18 Rate Blood Pressure 114/59 102/53 102/53 O2 Sat by Pulse 96 Oximetry 05/02/19 05/02/19 10:00 12:10 Temperature 98.3 F Pulse Rate 88 Respiratory 24 Rate Blood Pressure 109/67 O2 Sat by Pulse 98 91 Oximetry Constitutional: no acute distress, alert Eyes: icteric ENT: oropharynx moist, other (extubated) Neck: supple, no lymphadenopathy, no JVD, other (large neck circumference) Effort: mildly labored Ascultation: Bilateral: diminished breath sounds, rales, rhonchi (scant) Percussion: Bilateral: not dull Cardiovascular: irregular rhythm, other ( S1,S2) Gastrointestinal: hypoactive bowel sounds, soft, non-tender, non-distended, other (obese) Integumentary: normal, other (blisters with some weeping over the extremities) Extremities: no cyanosis, pink and warm, pulses normal, no ischemia or petechiae Neurologic: normal mental status, non-focal exam (grossly), pupils equal and round, CN II-XII normal, other (very weak) Psychiatric: mood appropriate, affect normal CBC and BMP: 05/02/19 05:57 05/02/19 05:57 ABG, PT/INR, D-dimer: ABG POC ABG pH 7.401 (7.35-7.45) 04/07/19 12:57 ABG pH 7.388 pH Units (7.350-7.450) 04/06/19 05:20 POC ABG pCO2 41.5 (35-45) 04/07/19 12:57 ABG pCO2 38.5 mm Hg 04/06/19 05:20 POC ABG pO2 107 (80-105) H 04/07/19 12:57 ABG pO2 104.0 mm Hg (80.0-90.0) H 04/06/19 05:20 POC ABG HCO3 25.7 (22-26 mml/L) 04/07/19 12:57 POC ABG Total CO2 27 (23-27mmol/L) 04/07/19 12:57 POC ABG O2 Sat 98 04/07/19 12:57 ABG O2 Saturation 97.8 % (95.0-99.0) 04/06/19 05:20 PT/INR, D-dimer PT 15.3 Sec. (12.2-14.9) H 03/29/19 11:48 INR 1.24 (0.87-1.13) H 03/29/19 11:48 D-Dimer 4845.98 ng/mlDDU (0-234) H 03/28/19 12:00 Abnormal lab findings: Abnormal Labs 03/16/19 03/16/19 03/16/19 15:32 16:03 16:05 WBC 27.0 H RBC 5.55 H Hgb 15.7 H Hct 47.1 H MCV MCHC RDW Plt Count 75 L Lymph % (Auto) Ramsey % (Auto) Lymph # Ramsey # Eos # Seg Neutrophils % Seg Neuts % (Manual) 85.0 H Lymphocytes % (Manual) 2.0 L Monocytes % (Manual) Nucleated RBC % Seg Neutrophils # Seg Neutrophils # Man 23.0 H Lymphocytes # (Manual) 0.5 L Monocytes # (Manual) PT INR D-Dimer Heparin Anti-Xa Level POC ABG pH ABG pH POC ABG pCO2 POC ABG pO2 ABG pO2 ABG HCO3 ABG O2 Saturation ABG Base Excess ABG Hemoglobin Oxyhemoglobin Sodium 127 L Potassium Chloride 87.8 L Carbon Dioxide 17 L BUN 49 H Creatinine 5.8 H Glucose 150 H POC Glucose 118 H Lactic Acid Calcium 6.6 L Ionized Calcium Phosphorus Magnesium 1.10 L Iron TIBC Ferritin Total Bilirubin Direct Bilirubin AST ALT Alkaline Phosphatase Total Creatine Kinase 01809 H CK-MB (CK-2) Troponin T C-Reactive Protein Serum Total Protein Total Protein Albumin Extmv-9-Qyruztbea Dwefy-4-Czabsndnk PEP Interpretation Triglycerides LDL Cholesterol Direct HDL Cholesterol Free T4 PTH Intact Urine WBC (Auto) Urine Creatinine Salicylates Acetaminophen Crossmatch 03/16/19 03/16/19 03/16/19 16:59 17:05 17:05 WBC RBC Hgb Hct MCV MCHC RDW Plt Count Lymph % (Auto) Ramsey % (Auto) Lymph # Ramsey # Eos # Seg Neutrophils % Seg Neuts % (Manual) Lymphocytes % (Manual) Monocytes % (Manual) Nucleated RBC % Seg Neutrophils # Seg Neutrophils # Man Lymphocytes # (Manual) Monocytes # (Manual) PT INR D-Dimer Heparin Anti-Xa Level POC ABG pH 7.297 L ABG pH POC ABG pCO2 33.0 L POC ABG pO2 ABG pO2 ABG HCO3 ABG O2 Saturation ABG Base Excess ABG Hemoglobin Oxyhemoglobin Sodium Potassium Chloride Carbon Dioxide BUN Creatinine Glucose POC Glucose Lactic Acid Calcium Ionized Calcium Phosphorus Magnesium Iron TIBC Ferritin Total Bilirubin Direct Bilirubin AST ALT Alkaline Phosphatase Total Creatine Kinase 34342 H CK-MB (CK-2) 83.1 H Troponin T C-Reactive Protein Serum Total Protein Total Protein Albumin Bodoa-2-Mlxcdyubw Quhgv-4-Ggzukcbfw PEP Interpretation Triglycerides LDL Cholesterol Direct HDL Cholesterol Free T4 0.72 L PTH Intact Urine WBC (Auto) Urine Creatinine Salicylates Acetaminophen Crossmatch 03/16/19 03/16/19 03/16/19 17:05 17:05 17:05 WBC RBC Hgb Hct MCV MCHC RDW Plt Count Lymph % (Auto) Ramsey % (Auto) Lymph # Ramsey # Eos # Seg Neutrophils % Seg Neuts % (Manual) Lymphocytes % (Manual) Monocytes % (Manual) Nucleated RBC % Seg Neutrophils # Seg Neutrophils # Man Lymphocytes # (Manual) Monocytes # (Manual) PT INR D-Dimer Heparin Anti-Xa Level POC ABG pH ABG pH POC ABG pCO2 POC ABG pO2 ABG pO2 ABG HCO3 ABG O2 Saturation ABG Base Excess ABG Hemoglobin Oxyhemoglobin Sodium Potassium Chloride Carbon Dioxide BUN Creatinine Glucose POC Glucose Lactic Acid 5.10 H* Calcium Ionized Calcium Phosphorus Magnesium Iron TIBC Ferritin Total Bilirubin Direct Bilirubin AST ALT Alkaline Phosphatase Total Creatine Kinase CK-MB (CK-2) Troponin T C-Reactive Protein Serum Total Protein Total Protein Albumin Koqup-0-Owqbrdaey Zxrub-4-Xwxzxmkqv PEP Interpretation Triglycerides LDL Cholesterol Direct HDL Cholesterol Free T4 PTH Intact Urine WBC (Auto) Urine Creatinine Salicylates < 0.3 L Acetaminophen < 5.0 L Crossmatch 03/16/19 03/16/19 03/16/19 17:05 17:05 20:35 WBC RBC Hgb Hct MCV MCHC RDW Plt Count Lymph % (Auto) Ramsey % (Auto) Lymph # Ramsey # Eos # Seg Neutrophils % Seg Neuts % (Manual) Lymphocytes % (Manual) Monocytes % (Manual) Nucleated RBC % Seg Neutrophils # Seg Neutrophils # Man Lymphocytes # (Manual) Monocytes # (Manual) PT 15.9 H INR 1.30 H D-Dimer Heparin Anti-Xa Level POC ABG pH ABG pH POC ABG pCO2 POC ABG pO2 ABG pO2 ABG HCO3 ABG O2 Saturation ABG Base Excess ABG Hemoglobin Oxyhemoglobin Sodium Potassium Chloride Carbon Dioxide BUN Creatinine Glucose POC Glucose Lactic Acid 3.30 H* Calcium Ionized Calcium Phosphorus Magnesium Iron TIBC Ferritin Total Bilirubin 6.20 H Direct Bilirubin 5.9 H AST 800 H ALT 120 H Alkaline Phosphatase Total Creatine Kinase CK-MB (CK-2) Troponin T C-Reactive Protein Serum Total Protein Total Protein 4.4 L Albumin 2.4 L Nayhy-1-Ccxrygzhj Cbnlu-9-Rarvnftgg PEP Interpretation Triglycerides LDL Cholesterol Direct HDL Cholesterol Free T4 PTH Intact Urine WBC (Auto) Urine Creatinine Salicylates Acetaminophen Crossmatch 03/16/19 03/16/19 03/16/19 21:45 22:32 Unknown WBC RBC Hgb Hct MCV MCHC RDW Plt Count Lymph % (Auto) Ramsey % (Auto) Lymph # Ramsey # Eos # Seg Neutrophils % Seg Neuts % (Manual) Lymphocytes % (Manual) Monocytes % (Manual) Nucleated RBC % Seg Neutrophils # Seg Neutrophils # Man Lymphocytes # (Manual) Monocytes # (Manual) PT INR D-Dimer Heparin Anti-Xa Level POC ABG pH ABG pH POC ABG pCO2 POC ABG pO2 ABG pO2 ABG HCO3 ABG O2 Saturation ABG Base Excess ABG Hemoglobin Oxyhemoglobin Sodium Potassium Chloride Carbon Dioxide BUN Creatinine Glucose POC Glucose Lactic Acid 3.30 H* 3.00 H* Calcium Ionized Calcium Phosphorus Magnesium Iron TIBC Ferritin Total Bilirubin Direct Bilirubin AST ALT Alkaline Phosphatase Total Creatine Kinase CK-MB (CK-2) Troponin T 0.047 H D C-Reactive Protein Serum Total Protein Total Protein Albumin Fdnio-7-Zpfiybimn Cgxyf-1-Qfysljhjd PEP Interpretation Triglycerides 395 H LDL Cholesterol Direct 10 L HDL Cholesterol 7 L Free T4 PTH Intact Urine WBC (Auto) Urine Creatinine Salicylates Acetaminophen Crossmatch 03/17/19 03/17/19 03/17/19 03:45 03:45 03:45 WBC RBC Hgb Hct MCV MCHC RDW Plt Count Lymph % (Auto) Ramsey % (Auto) Lymph # Ramsey # Eos # Seg Neutrophils % Seg Neuts % (Manual) Lymphocytes % (Manual) Monocytes % (Manual) Nucleated RBC % Seg Neutrophils # Seg Neutrophils # Man Lymphocytes # (Manual) Monocytes # (Manual) PT INR D-Dimer Heparin Anti-Xa Level POC ABG pH ABG pH POC ABG pCO2 POC ABG pO2 ABG pO2 ABG HCO3 ABG O2 Saturation ABG Base Excess ABG Hemoglobin Oxyhemoglobin Sodium 131 L Potassium Chloride 88.9 L Carbon Dioxide BUN 53 H Creatinine 7.1 H Glucose POC Glucose Lactic Acid 4.10 H* Calcium 5.4 L* D Ionized Calcium Phosphorus 7.30 H Magnesium 1.60 L Iron TIBC Ferritin Total Bilirubin 5.90 H Direct Bilirubin AST 801 H ALT 109 H Alkaline Phosphatase Total Creatine Kinase 69803 H 68973 H CK-MB (CK-2) 41.5 H Troponin T 0.054 H C-Reactive Protein Serum Total Protein Total Protein 4.5 L Albumin 2.0 L Mqoth-7-Pppccgwjx Fjyme-0-Oxtlafnjt PEP Interpretation Triglycerides LDL Cholesterol Direct HDL Cholesterol Free T4 PTH Intact Urine WBC (Auto) Urine Creatinine Salicylates Acetaminophen Crossmatch 03/17/19 03/17/19 03/17/19 05:47 07:16 07:16 WBC RBC Hgb Hct MCV MCHC RDW Plt Count Lymph % (Auto) Ramsey % (Auto) Lymph # Ramsey # Eos # Seg Neutrophils % Seg Neuts % (Manual) Lymphocytes % (Manual) Monocytes % (Manual) Nucleated RBC % Seg Neutrophils # Seg Neutrophils # Man Lymphocytes # (Manual) Monocytes # (Manual) PT INR D-Dimer Heparin Anti-Xa Level POC ABG pH 7.193 L ABG pH POC ABG pCO2 45.2 H POC ABG pO2 65 L ABG pO2 ABG HCO3 ABG O2 Saturation ABG Base Excess ABG Hemoglobin Oxyhemoglobin Sodium Potassium Chloride Carbon Dioxide BUN Creatinine Glucose POC Glucose Lactic Acid 5.50 H* Calcium Ionized Calcium Phosphorus Magnesium Iron TIBC Ferritin Total Bilirubin Direct Bilirubin AST ALT Alkaline Phosphatase Total Creatine Kinase 87687 H CK-MB (CK-2) 54.3 H Troponin T 0.058 H C-Reactive Protein Serum Total Protein Total Protein Albumin Rkgid-8-Pklknvarf Juutu-2-Oienxszvl PEP Interpretation Triglycerides LDL Cholesterol Direct HDL Cholesterol Free T4 PTH Intact Urine WBC (Auto) Urine Creatinine Salicylates Acetaminophen Crossmatch 03/17/19 03/17/19 03/17/19 11:52 12:51 13:01 WBC RBC Hgb Hct MCV MCHC RDW Plt Count Lymph % (Auto) Ramsey % (Auto) Lymph # Ramsey # Eos # Seg Neutrophils % Seg Neuts % (Manual) Lymphocytes % (Manual) Monocytes % (Manual) Nucleated RBC % Seg Neutrophils # Seg Neutrophils # Man Lymphocytes # (Manual) Monocytes # (Manual) PT INR D-Dimer Heparin Anti-Xa Level POC ABG pH 7.154 L ABG pH POC ABG pCO2 34.3 L POC ABG pO2 73 L ABG pO2 ABG HCO3 ABG O2 Saturation ABG Base Excess ABG Hemoglobin Oxyhemoglobin Sodium Potassium Chloride Carbon Dioxide BUN Creatinine Glucose POC Glucose 60 L Lactic Acid 8.20 H* Calcium Ionized Calcium Phosphorus Magnesium Iron TIBC Ferritin Total Bilirubin Direct Bilirubin AST ALT Alkaline Phosphatase Total Creatine Kinase CK-MB (CK-2) Troponin T C-Reactive Protein Serum Total Protein Total Protein Albumin Faaji-6-Gthozvmjm Cxivp-7-Ouwyqojvw PEP Interpretation Triglycerides LDL Cholesterol Direct HDL Cholesterol Free T4 PTH Intact Urine WBC (Auto) Urine Creatinine Salicylates Acetaminophen Crossmatch 03/17/19 03/17/19 03/17/19 14:37 14:37 14:37 WBC 29.3 H RBC Hgb Hct MCV MCHC RDW 15.8 H Plt Count 45 L Lymph % (Auto) Ramsey % (Auto) Lymph # Ramsey # Eos # Seg Neutrophils % Seg Neuts % (Manual) 81.0 H Lymphocytes % (Manual) 1.0 L Monocytes % (Manual) 15.0 H Nucleated RBC % Seg Neutrophils # Seg Neutrophils # Man 23.7 H Lymphocytes # (Manual) 0.3 L Monocytes # (Manual) 4.4 H PT INR D-Dimer Heparin Anti-Xa Level POC ABG pH ABG pH POC ABG pCO2 POC ABG pO2 ABG pO2 ABG HCO3 ABG O2 Saturation ABG Base Excess ABG Hemoglobin Oxyhemoglobin Sodium Potassium Chloride Carbon Dioxide BUN Creatinine Glucose POC Glucose Lactic Acid 4.90 H* Calcium Ionized Calcium Phosphorus Magnesium Iron TIBC Ferritin Total Bilirubin Direct Bilirubin AST ALT Alkaline Phosphatase Total Creatine Kinase CK-MB (CK-2) Troponin T C-Reactive Protein 24.90 H Serum Total Protein Total Protein Albumin Kgnlf-2-Gleuupisd Hyoye-6-Zqcmdklpq PEP Interpretation Triglycerides LDL Cholesterol Direct HDL Cholesterol Free T4 PTH Intact Urine WBC (Auto) Urine Creatinine Salicylates Acetaminophen Crossmatch 03/17/19 03/17/19 03/17/19 16:05 16:05 17:02 WBC RBC Hgb Hct MCV MCHC RDW Plt Count Lymph % (Auto) Ramsey % (Auto) Lymph # Ramsey # Eos # Seg Neutrophils % Seg Neuts % (Manual) Lymphocytes % (Manual) Monocytes % (Manual) Nucleated RBC % Seg Neutrophils # Seg Neutrophils # Man Lymphocytes # (Manual) Monocytes # (Manual) PT INR D-Dimer Heparin Anti-Xa Level POC ABG pH 7.183 L ABG pH POC ABG pCO2 POC ABG pO2 65 L ABG pO2 ABG HCO3 ABG O2 Saturation ABG Base Excess ABG Hemoglobin Oxyhemoglobin Sodium Potassium Chloride Carbon Dioxide BUN Creatinine Glucose POC Glucose Lactic Acid Calcium Ionized Calcium Phosphorus Magnesium Iron TIBC Ferritin Total Bilirubin Direct Bilirubin AST ALT Alkaline Phosphatase Total Creatine Kinase CK-MB (CK-2) Troponin T C-Reactive Protein Serum Total Protein Total Protein Albumin Pyion-8-Vslblvbli Ezvks-6-Ynsgoxxvl PEP Interpretation Triglycerides LDL Cholesterol Direct HDL Cholesterol Free T4 PTH Intact Urine WBC (Auto) 30.0 H Urine Creatinine 106.6 H Salicylates Acetaminophen Crossmatch 03/18/19 03/18/19 03/18/19 05:12 05:16 05:53 WBC RBC Hgb Hct MCV MCHC RDW Plt Count Lymph % (Auto) Ramsey % (Auto) Lymph # Ramsey # Eos # Seg Neutrophils % Seg Neuts % (Manual) Lymphocytes % (Manual) Monocytes % (Manual) Nucleated RBC % Seg Neutrophils # Seg Neutrophils # Man Lymphocytes # (Manual) Monocytes # (Manual) PT INR D-Dimer Heparin Anti-Xa Level POC ABG pH 7.257 L ABG pH POC ABG pCO2 31.6 L POC ABG pO2 69 L ABG pO2 ABG HCO3 ABG O2 Saturation ABG Base Excess ABG Hemoglobin Oxyhemoglobin Sodium Potassium Chloride Carbon Dioxide BUN Creatinine Glucose POC Glucose 141 H Lactic Acid 5.00 H* Calcium Ionized Calcium Phosphorus Magnesium Iron TIBC Ferritin Total Bilirubin Direct Bilirubin AST ALT Alkaline Phosphatase Total Creatine Kinase CK-MB (CK-2) Troponin T C-Reactive Protein Serum Total Protein Total Protein Albumin Gmles-8-Oevdfkvry Glyeg-9-Gnkawegcj PEP Interpretation Triglycerides LDL Cholesterol Direct HDL Cholesterol Free T4 PTH Intact Urine WBC (Auto) Urine Creatinine Salicylates Acetaminophen Crossmatch 03/18/19 03/18/19 03/18/19 06:57 08:40 08:40 WBC 31.7 H RBC Hgb Hct MCV MCHC RDW 15.5 H Plt Count 35 L Lymph % (Auto) Ramsey % (Auto) Lymph # Ramsey # Eos # Seg Neutrophils % Seg Neuts % (Manual) Lymphocytes % (Manual) Monocytes % (Manual) Nucleated RBC % Seg Neutrophils # Seg Neutrophils # Man Lymphocytes # (Manual) Monocytes # (Manual) PT INR D-Dimer Heparin Anti-Xa Level POC ABG pH ABG pH POC ABG pCO2 POC ABG pO2 ABG pO2 ABG HCO3 ABG O2 Saturation ABG Base Excess ABG Hemoglobin Oxyhemoglobin Sodium 132 L Potassium 5.5 H D Chloride 88.5 L Carbon Dioxide 18 L BUN 71 H Creatinine 8.1 H Glucose 205 H POC Glucose Lactic Acid 5.00 H* Calcium 4.1 L* D Ionized Calcium Phosphorus Magnesium 2.40 H Iron TIBC Ferritin Total Bilirubin 7.50 H Direct Bilirubin AST 1088 H ALT 159 H Alkaline Phosphatase 190 H Total Creatine Kinase 687420 H CK-MB (CK-2) Troponin T C-Reactive Protein Serum Total Protein Total Protein 4.7 L Albumin 1.8 L Dzrdn-8-Saxffrosj Bvwdv-1-Cjhjcdfuc PEP Interpretation Triglycerides LDL Cholesterol Direct HDL Cholesterol Free T4 PTH Intact Urine WBC (Auto) Urine Creatinine Salicylates Acetaminophen Crossmatch 03/18/19 03/18/19 03/18/19 12:33 12:50 13:19 WBC RBC Hgb Hct MCV MCHC RDW Plt Count Lymph % (Auto) Ramsey % (Auto) Lymph # Ramsey # Eos # Seg Neutrophils % Seg Neuts % (Manual) Lymphocytes % (Manual) Monocytes % (Manual) Nucleated RBC % Seg Neutrophils # Seg Neutrophils # Man Lymphocytes # (Manual) Monocytes # (Manual) PT INR D-Dimer Heparin Anti-Xa Level POC ABG pH 7.282 L ABG pH POC ABG pCO2 POC ABG pO2 67 L ABG pO2 ABG HCO3 ABG O2 Saturation ABG Base Excess ABG Hemoglobin Oxyhemoglobin Sodium Potassium Chloride Carbon Dioxide BUN Creatinine Glucose POC Glucose 129 H Lactic Acid 3.30 H* Calcium Ionized Calcium Phosphorus Magnesium Iron TIBC Ferritin Total Bilirubin Direct Bilirubin AST ALT Alkaline Phosphatase Total Creatine Kinase CK-MB (CK-2) Troponin T C-Reactive Protein Serum Total Protein Total Protein Albumin Tfbmd-8-Ikmelvqhs Tzcdv-8-Pemhpzmdb PEP Interpretation Triglycerides LDL Cholesterol Direct HDL Cholesterol Free T4 PTH Intact Urine WBC (Auto) Urine Creatinine Salicylates Acetaminophen Crossmatch 03/18/19 03/18/19 03/18/19 13:19 16:50 18:11 WBC RBC Hgb Hct MCV MCHC RDW Plt Count Lymph % (Auto) Ramsey % (Auto) Lymph # Ramsey # Eos # Seg Neutrophils % Seg Neuts % (Manual) Lymphocytes % (Manual) Monocytes % (Manual) Nucleated RBC % Seg Neutrophils # Seg Neutrophils # Man Lymphocytes # (Manual) Monocytes # (Manual) PT INR D-Dimer Heparin Anti-Xa Level POC ABG pH ABG pH POC ABG pCO2 POC ABG pO2 59 L ABG pO2 ABG HCO3 ABG O2 Saturation ABG Base Excess ABG Hemoglobin Oxyhemoglobin Sodium Potassium Chloride Carbon Dioxide BUN Creatinine Glucose POC Glucose 151 H Lactic Acid Calcium 4.2 L* Ionized Calcium Phosphorus Magnesium Iron TIBC Ferritin Total Bilirubin Direct Bilirubin AST ALT Alkaline Phosphatase Total Creatine Kinase 929290 H CK-MB (CK-2) Troponin T C-Reactive Protein Serum Total Protein Total Protein Albumin Ipfhk-4-Twjqckwzf Xosea-9-Osewjmxyw PEP Interpretation Triglycerides LDL Cholesterol Direct HDL Cholesterol Free T4 PTH Intact Urine WBC (Auto) Urine Creatinine Salicylates Acetaminophen Crossmatch 03/18/19 03/18/19 03/19/19 18:20 23:39 01:42 WBC RBC Hgb Hct MCV MCHC RDW Plt Count Lymph % (Auto) Ramsey % (Auto) Lymph # Ramsey # Eos # Seg Neutrophils % Seg Neuts % (Manual) Lymphocytes % (Manual) Monocytes % (Manual) Nucleated RBC % Seg Neutrophils # Seg Neutrophils # Man Lymphocytes # (Manual) Monocytes # (Manual) PT INR D-Dimer Heparin Anti-Xa Level POC ABG pH 7.345 L ABG pH 7.285 L POC ABG pCO2 POC ABG pO2 59 L ABG pO2 44.0 L ABG HCO3 ABG O2 Saturation 70.9 L ABG Base Excess -5.7 L ABG Hemoglobin 11.9 L Oxyhemoglobin 69.6 L Sodium Potassium Chloride Carbon Dioxide BUN Creatinine Glucose POC Glucose 152 H Lactic Acid Calcium Ionized Calcium Phosphorus Magnesium Iron TIBC Ferritin Total Bilirubin Direct Bilirubin AST ALT Alkaline Phosphatase Total Creatine Kinase CK-MB (CK-2) Troponin T C-Reactive Protein Serum Total Protein Total Protein Albumin Wwfdv-1-Mpprekgba Qdvhc-2-Tnvdkxyph PEP Interpretation Triglycerides LDL Cholesterol Direct HDL Cholesterol Free T4 PTH Intact Urine WBC (Auto) Urine Creatinine Salicylates Acetaminophen Crossmatch 03/19/19 03/19/19 03/19/19 04:00 04:00 05:35 WBC 36.5 H RBC Hgb Hct MCV MCHC RDW 15.8 H Plt Count 35 L Lymph % (Auto) Ramsey % (Auto) Lymph # Ramsey # Eos # Seg Neutrophils % Seg Neuts % (Manual) Lymphocytes % (Manual) Monocytes % (Manual) Nucleated RBC % Seg Neutrophils # Seg Neutrophils # Man Lymphocytes # (Manual) Monocytes # (Manual) PT INR D-Dimer Heparin Anti-Xa Level POC ABG pH ABG pH 7.265 L POC ABG pCO2 POC ABG pO2 ABG pO2 35.4 L* ABG HCO3 ABG O2 Saturation 54.4 L ABG Base Excess -6.7 L ABG Hemoglobin 12.9 L Oxyhemoglobin 53.4 L Sodium 132 L Potassium 5.7 H Chloride 89.8 L Carbon Dioxide 19 L BUN 62 H Creatinine 6.4 H Glucose 151 H POC Glucose Lactic Acid Calcium 5.2 L* D Ionized Calcium Phosphorus Magnesium Iron TIBC Ferritin Total Bilirubin 7.80 H Direct Bilirubin AST 682 H ALT 130 H Alkaline Phosphatase 167 H Total Creatine Kinase CK-MB (CK-2) Troponin T C-Reactive Protein Serum Total Protein Total Protein 4.8 L Albumin 2.3 L Lcfof-6-Gxwdgbeqh Jvpqi-8-Jnlcidupn PEP Interpretation Triglycerides LDL Cholesterol Direct HDL Cholesterol Free T4 PTH Intact Urine WBC (Auto) Urine Creatinine Salicylates Acetaminophen Crossmatch 03/19/19 03/19/19 03/19/19 05:49 09:16 09:50 WBC RBC Hgb Hct MCV MCHC RDW Plt Count Lymph % (Auto) Ramsey % (Auto) Lymph # Ramsey # Eos # Seg Neutrophils % Seg Neuts % (Manual) Lymphocytes % (Manual) Monocytes % (Manual) Nucleated RBC % Seg Neutrophils # Seg Neutrophils # Man Lymphocytes # (Manual) Monocytes # (Manual) PT INR D-Dimer Heparin Anti-Xa Level POC ABG pH 7.222 L ABG pH POC ABG pCO2 56.6 H POC ABG pO2 ABG pO2 ABG HCO3 ABG O2 Saturation ABG Base Excess ABG Hemoglobin Oxyhemoglobin Sodium Potassium Chloride Carbon Dioxide BUN Creatinine Glucose POC Glucose 154 H Lactic Acid 2.70 H* Calcium Ionized Calcium Phosphorus Magnesium Iron TIBC Ferritin Total Bilirubin Direct Bilirubin AST ALT Alkaline Phosphatase Total Creatine Kinase CK-MB (CK-2) Troponin T C-Reactive Protein Serum Total Protein Total Protein Albumin Vbtao-3-Triszhsqc Tgawd-9-Makejscwb PEP Interpretation Triglycerides LDL Cholesterol Direct HDL Cholesterol Free T4 PTH Intact Urine WBC (Auto) Urine Creatinine Salicylates Acetaminophen Crossmatch 03/19/19 03/19/19 03/19/19 09:50 11:28 17:58 WBC RBC Hgb Hct MCV MCHC RDW Plt Count Lymph % (Auto) Ramsey % (Auto) Lymph # Ramsey # Eos # Seg Neutrophils % Seg Neuts % (Manual) Lymphocytes % (Manual) Monocytes % (Manual) Nucleated RBC % Seg Neutrophils # Seg Neutrophils # Man Lymphocytes # (Manual) Monocytes # (Manual) PT INR D-Dimer Heparin Anti-Xa Level POC ABG pH 7.250 L ABG pH POC ABG pCO2 52.6 H POC ABG pO2 ABG pO2 ABG HCO3 ABG O2 Saturation ABG Base Excess ABG Hemoglobin Oxyhemoglobin Sodium Potassium Chloride Carbon Dioxide BUN Creatinine Glucose POC Glucose 160 H Lactic Acid Calcium Ionized Calcium Phosphorus Magnesium Iron TIBC Ferritin Total Bilirubin Direct Bilirubin AST ALT Alkaline Phosphatase Total Creatine Kinase 58233 H CK-MB (CK-2) Troponin T C-Reactive Protein Serum Total Protein Total Protein Albumin Yldsy-5-Ktvnejeii Afbxh-1-Ucgluqpnd PEP Interpretation Triglycerides LDL Cholesterol Direct HDL Cholesterol Free T4 PTH Intact Urine WBC (Auto) Urine Creatinine Salicylates Acetaminophen Crossmatch 03/19/19 03/19/19 03/20/19 19:48 21:03 02:16 WBC RBC Hgb Hct MCV MCHC RDW Plt Count Lymph % (Auto) Ramsey % (Auto) Lymph # Ramsey # Eos # Seg Neutrophils % Seg Neuts % (Manual) Lymphocytes % (Manual) Monocytes % (Manual) Nucleated RBC % Seg Neutrophils # Seg Neutrophils # Man Lymphocytes # (Manual) Monocytes # (Manual) PT INR D-Dimer Heparin Anti-Xa Level POC ABG pH 7.279 L ABG pH POC ABG pCO2 50.3 H POC ABG pO2 129 H ABG pO2 ABG HCO3 ABG O2 Saturation ABG Base Excess ABG Hemoglobin Oxyhemoglobin Sodium Potassium Chloride Carbon Dioxide BUN Creatinine Glucose POC Glucose 119 H 119 H Lactic Acid Calcium Ionized Calcium Phosphorus Magnesium Iron TIBC Ferritin Total Bilirubin Direct Bilirubin AST ALT Alkaline Phosphatase Total Creatine Kinase CK-MB (CK-2) Troponin T C-Reactive Protein Serum Total Protein Total Protein Albumin Ihnou-0-Yvpnfneyf Jfxvo-7-Pdplfdsvx PEP Interpretation Triglycerides LDL Cholesterol Direct HDL Cholesterol Free T4 PTH Intact Urine WBC (Auto) Urine Creatinine Salicylates Acetaminophen Crossmatch 03/20/19 03/20/19 03/20/19 04:23 05:05 09:30 WBC 36.3 H RBC Hgb Hct MCV MCHC RDW 15.5 H Plt Count 29 L Lymph % (Auto) Ramsey % (Auto) Lymph # Ramsey # Eos # Seg Neutrophils % Seg Neuts % (Manual) Lymphocytes % (Manual) Monocytes % (Manual) Nucleated RBC % Seg Neutrophils # Seg Neutrophils # Man Lymphocytes # (Manual) Monocytes # (Manual) PT INR D-Dimer Heparin Anti-Xa Level POC ABG pH ABG pH POC ABG pCO2 POC ABG pO2 280 H ABG pO2 ABG HCO3 ABG O2 Saturation ABG Base Excess ABG Hemoglobin Oxyhemoglobin Sodium Potassium Chloride Carbon Dioxide BUN Creatinine Glucose POC Glucose 115 H Lactic Acid Calcium Ionized Calcium Phosphorus Magnesium Iron TIBC Ferritin Total Bilirubin Direct Bilirubin AST ALT Alkaline Phosphatase Total Creatine Kinase CK-MB (CK-2) Troponin T C-Reactive Protein Serum Total Protein Total Protein Albumin Nhvqg-9-Kxtrrjmlo Umuuf-6-Dmmggjxqd PEP Interpretation Triglycerides LDL Cholesterol Direct HDL Cholesterol Free T4 PTH Intact Urine WBC (Auto) Urine Creatinine Salicylates Acetaminophen Crossmatch 03/20/19 03/20/19 03/20/19 09:30 09:30 11:34 WBC RBC Hgb Hct MCV MCHC RDW Plt Count Lymph % (Auto) Ramsey % (Auto) Lymph # Ramsey # Eos # Seg Neutrophils % Seg Neuts % (Manual) Lymphocytes % (Manual) Monocytes % (Manual) Nucleated RBC % Seg Neutrophils # Seg Neutrophils # Man Lymphocytes # (Manual) Monocytes # (Manual) PT INR D-Dimer Heparin Anti-Xa Level POC ABG pH ABG pH POC ABG pCO2 POC ABG pO2 ABG pO2 ABG HCO3 ABG O2 Saturation ABG Base Excess ABG Hemoglobin Oxyhemoglobin Sodium 131 L Potassium Chloride 92.3 L Carbon Dioxide 20 L BUN 68 H Creatinine 6.1 H Glucose 164 H POC Glucose 141 H Lactic Acid Calcium 5.3 L* Ionized Calcium Phosphorus Magnesium Iron TIBC Ferritin Total Bilirubin 9.50 H Direct Bilirubin AST 381 H ALT 116 H Alkaline Phosphatase 255 H Total Creatine Kinase 74054 H CK-MB (CK-2) Troponin T C-Reactive Protein Serum Total Protein Total Protein 5.1 L Albumin 2.3 L Dktnq-6-Zawbxezyt Lwmff-5-Ggwofpjac PEP Interpretation Triglycerides LDL Cholesterol Direct HDL Cholesterol Free T4 PTH Intact Urine WBC (Auto) Urine Creatinine Salicylates Acetaminophen Crossmatch 03/20/19 03/20/19 03/20/19 14:41 14:45 18:50 WBC RBC Hgb Hct MCV MCHC RDW Plt Count Lymph % (Auto) Ramsey % (Auto) Lymph # Ramsey # Eos # Seg Neutrophils % Seg Neuts % (Manual) Lymphocytes % (Manual) Monocytes % (Manual) Nucleated RBC % Seg Neutrophils # Seg Neutrophils # Man Lymphocytes # (Manual) Monocytes # (Manual) PT INR D-Dimer Heparin Anti-Xa Level POC ABG pH ABG pH POC ABG pCO2 POC ABG pO2 ABG pO2 ABG HCO3 ABG O2 Saturation ABG Base Excess ABG Hemoglobin Oxyhemoglobin Sodium Potassium Chloride Carbon Dioxide BUN Creatinine Glucose POC Glucose 117 H Lactic Acid 2.90 H* Calcium Ionized Calcium Phosphorus Magnesium Iron TIBC Ferritin Total Bilirubin Direct Bilirubin AST ALT Alkaline Phosphatase Total Creatine Kinase CK-MB (CK-2) Troponin T C-Reactive Protein 13.30 H Serum Total Protein Total Protein Albumin Mtade-1-Ncbcawitv Pxdot-4-Vyoqzijcu PEP Interpretation Triglycerides LDL Cholesterol Direct HDL Cholesterol Free T4 PTH Intact Urine WBC (Auto) Urine Creatinine Salicylates Acetaminophen Crossmatch 03/20/19 03/21/19 03/21/19 21:55 04:26 04:26 WBC 37.8 H RBC Hgb Hct MCV MCHC RDW 15.4 H Plt Count 36 L Lymph % (Auto) Ramsey % (Auto) Lymph # Ramsey # Eos # Seg Neutrophils % Seg Neuts % (Manual) 93.0 H Lymphocytes % (Manual) 3.0 L Monocytes % (Manual) Nucleated RBC % 1.0 H Seg Neutrophils # 34.6 H Seg Neutrophils # Man 35.2 H Lymphocytes # (Manual) 1.1 L Monocytes # (Manual) PT INR D-Dimer Heparin Anti-Xa Level POC ABG pH ABG pH POC ABG pCO2 POC ABG pO2 ABG pO2 ABG HCO3 ABG O2 Saturation ABG Base Excess ABG Hemoglobin Oxyhemoglobin Sodium 131 L Potassium Chloride 90.7 L Carbon Dioxide 21 L BUN 69 H Creatinine 5.7 H Glucose 170 H POC Glucose 128 H Lactic Acid Calcium 6.1 L D Ionized Calcium Phosphorus Magnesium Iron TIBC Ferritin Total Bilirubin 9.50 H Direct Bilirubin AST 308 H ALT 124 H Alkaline Phosphatase 327 H Total Creatine Kinase 79905 H CK-MB (CK-2) Troponin T C-Reactive Protein Serum Total Protein Total Protein 5.7 L Albumin 2.6 L Gliss-8-Yveijlpcj Gqesc-2-Nljbpjfhy PEP Interpretation Triglycerides LDL Cholesterol Direct HDL Cholesterol Free T4 PTH Intact Urine WBC (Auto) Urine Creatinine Salicylates Acetaminophen Crossmatch 03/21/19 03/21/19 03/21/19 05:17 05:39 08:29 WBC RBC Hgb Hct MCV MCHC RDW Plt Count Lymph % (Auto) Ramsey % (Auto) Lymph # Ramsey # Eos # Seg Neutrophils % Seg Neuts % (Manual) Lymphocytes % (Manual) Monocytes % (Manual) Nucleated RBC % Seg Neutrophils # Seg Neutrophils # Man Lymphocytes # (Manual) Monocytes # (Manual) PT INR D-Dimer Heparin Anti-Xa Level POC ABG pH ABG pH POC ABG pCO2 POC ABG pO2 209 H ABG pO2 ABG HCO3 ABG O2 Saturation ABG Base Excess ABG Hemoglobin Oxyhemoglobin Sodium Potassium Chloride Carbon Dioxide BUN Creatinine Glucose POC Glucose 145 H Lactic Acid Calcium Ionized Calcium Phosphorus Magnesium Iron TIBC Ferritin Total Bilirubin Direct Bilirubin AST ALT Alkaline Phosphatase Total Creatine Kinase 40252 H CK-MB (CK-2) Troponin T C-Reactive Protein Serum Total Protein Total Protein Albumin Ubnap-8-Qgockwnaz Jofan-7-Siyjqxzso PEP Interpretation Triglycerides LDL Cholesterol Direct HDL Cholesterol Free T4 PTH Intact Urine WBC (Auto) Urine Creatinine Salicylates Acetaminophen Crossmatch 03/21/19 03/21/19 03/21/19 08:29 11:43 12:00 WBC RBC Hgb Hct MCV MCHC RDW Plt Count Lymph % (Auto) Ramsey % (Auto) Lymph # Ramsey # Eos # Seg Neutrophils % Seg Neuts % (Manual) Lymphocytes % (Manual) Monocytes % (Manual) Nucleated RBC % Seg Neutrophils # Seg Neutrophils # Man Lymphocytes # (Manual) Monocytes # (Manual) PT INR D-Dimer Heparin Anti-Xa Level POC ABG pH ABG pH POC ABG pCO2 POC ABG pO2 ABG pO2 ABG HCO3 ABG O2 Saturation ABG Base Excess ABG Hemoglobin Oxyhemoglobin Sodium Potassium Chloride Carbon Dioxide BUN Creatinine Glucose POC Glucose 123 H Lactic Acid 2.60 H* 2.20 H* Calcium Ionized Calcium Phosphorus Magnesium Iron TIBC Ferritin Total Bilirubin Direct Bilirubin AST ALT Alkaline Phosphatase Total Creatine Kinase CK-MB (CK-2) Troponin T C-Reactive Protein Serum Total Protein Total Protein Albumin Nvxvd-1-Kitqmbptr Hpcnf-0-Eyjxyaqxf PEP Interpretation Triglycerides LDL Cholesterol Direct HDL Cholesterol Free T4 PTH Intact Urine WBC (Auto) Urine Creatinine Salicylates Acetaminophen Crossmatch 03/21/19 03/21/19 03/21/19 14:11 18:28 19:32 WBC RBC Hgb Hct MCV MCHC RDW Plt Count Lymph % (Auto) Ramsey % (Auto) Lymph # Ramsey # Eos # Seg Neutrophils % Seg Neuts % (Manual) Lymphocytes % (Manual) Monocytes % (Manual) Nucleated RBC % Seg Neutrophils # Seg Neutrophils # Man Lymphocytes # (Manual) Monocytes # (Manual) PT INR D-Dimer Heparin Anti-Xa Level POC ABG pH 7.293 L ABG pH POC ABG pCO2 POC ABG pO2 ABG pO2 ABG HCO3 ABG O2 Saturation ABG Base Excess ABG Hemoglobin Oxyhemoglobin Sodium Potassium Chloride Carbon Dioxide BUN Creatinine Glucose POC Glucose 153 H Lactic Acid 2.10 H* Calcium Ionized Calcium Phosphorus Magnesium Iron TIBC Ferritin Total Bilirubin Direct Bilirubin AST ALT Alkaline Phosphatase Total Creatine Kinase CK-MB (CK-2) Troponin T C-Reactive Protein Serum Total Protein Total Protein Albumin Gaevi-8-Stbbipzdv Ykirg-1-Xbhibweya PEP Interpretation Triglycerides LDL Cholesterol Direct HDL Cholesterol Free T4 PTH Intact Urine WBC (Auto) Urine Creatinine Salicylates Acetaminophen Crossmatch 03/21/19 03/22/19 03/22/19 23:38 05:08 05:51 WBC RBC Hgb Hct MCV MCHC RDW Plt Count Lymph % (Auto) Ramsey % (Auto) Lymph # Ramsey # Eos # Seg Neutrophils % Seg Neuts % (Manual) Lymphocytes % (Manual) Monocytes % (Manual) Nucleated RBC % Seg Neutrophils # Seg Neutrophils # Man Lymphocytes # (Manual) Monocytes # (Manual) PT INR D-Dimer Heparin Anti-Xa Level POC ABG pH 7.283 L ABG pH POC ABG pCO2 POC ABG pO2 53 L ABG pO2 ABG HCO3 ABG O2 Saturation ABG Base Excess ABG Hemoglobin Oxyhemoglobin Sodium Potassium Chloride Carbon Dioxide BUN Creatinine Glucose POC Glucose 149 H 131 H Lactic Acid Calcium Ionized Calcium Phosphorus Magnesium Iron TIBC Ferritin Total Bilirubin Direct Bilirubin AST ALT Alkaline Phosphatase Total Creatine Kinase CK-MB (CK-2) Troponin T C-Reactive Protein Serum Total Protein Total Protein Albumin Mhrjo-1-Afqdwuzjx Mwzox-3-Axnmargew PEP Interpretation Triglycerides LDL Cholesterol Direct HDL Cholesterol Free T4 PTH Intact Urine WBC (Auto) Urine Creatinine Salicylates Acetaminophen Crossmatch 03/22/19 03/22/19 03/22/19 08:00 08:00 18:19 WBC 36.7 H RBC Hgb 11.0 L Hct 33.5 L MCV MCHC RDW 15.5 H Plt Count 43 L Lymph % (Auto) Ramsey % (Auto) Lymph # Ramsey # Eos # Seg Neutrophils % Seg Neuts % (Manual) 87.0 H Lymphocytes % (Manual) 7.0 L Monocytes % (Manual) Nucleated RBC % Seg Neutrophils # Seg Neutrophils # Man 31.9 H Lymphocytes # (Manual) Monocytes # (Manual) PT INR D-Dimer Heparin Anti-Xa Level POC ABG pH ABG pH POC ABG pCO2 46.4 H POC ABG pO2 108 H ABG pO2 ABG HCO3 ABG O2 Saturation ABG Base Excess ABG Hemoglobin Oxyhemoglobin Sodium 132 L Potassium 5.6 H Chloride 89.6 L Carbon Dioxide 20 L BUN 101 H Creatinine 7.4 H Glucose 124 H POC Glucose Lactic Acid Calcium 5.2 L* Ionized Calcium Phosphorus Magnesium Iron TIBC Ferritin Total Bilirubin 2.80 H Direct Bilirubin AST 119 H ALT 86 H Alkaline Phosphatase 245 H Total Creatine Kinase CK-MB (CK-2) Troponin T C-Reactive Protein Serum Total Protein Total Protein 5.6 L Albumin 2.5 L Tnimg-2-Qytzrqcmk Yulch-7-Hkzrmyjqf PEP Interpretation Triglycerides LDL Cholesterol Direct HDL Cholesterol Free T4 PTH Intact Urine WBC (Auto) Urine Creatinine Salicylates Acetaminophen Crossmatch 03/22/19 03/23/19 03/23/19 20:37 04:49 05:28 WBC 35.9 H RBC Hgb 10.8 L Hct 33.2 L MCV MCHC RDW 15.5 H Plt Count 49 L Lymph % (Auto) Ramsey % (Auto) Lymph # Ramsey # Eos # Seg Neutrophils % Seg Neuts % (Manual) 81.0 H Lymphocytes % (Manual) 3.5 L Monocytes % (Manual) Nucleated RBC % Seg Neutrophils # Seg Neutrophils # Man 29.1 H Lymphocytes # (Manual) Monocytes # (Manual) 1.4 H PT INR D-Dimer Heparin Anti-Xa Level POC ABG pH 7.296 L ABG pH POC ABG pCO2 46.2 H POC ABG pO2 ABG pO2 ABG HCO3 ABG O2 Saturation ABG Base Excess ABG Hemoglobin Oxyhemoglobin Sodium 129 L Potassium 5.2 H Chloride 91.1 L Carbon Dioxide BUN 91 H Creatinine 6.6 H Glucose 190 H POC Glucose Lactic Acid Calcium 5.3 L* Ionized Calcium Phosphorus Magnesium Iron TIBC Ferritin Total Bilirubin 1.80 H Direct Bilirubin AST 80 H ALT 62 H Alkaline Phosphatase 209 H Total Creatine Kinase 9758 H CK-MB (CK-2) Troponin T C-Reactive Protein Serum Total Protein Total Protein 5.2 L Albumin 2.2 L Eulue-9-Dupavqvfa Tbrle-6-Yzsoytpac PEP Interpretation Triglycerides LDL Cholesterol Direct HDL Cholesterol Free T4 PTH Intact Urine WBC (Auto) Urine Creatinine Salicylates Acetaminophen Crossmatch 03/23/19 03/23/19 03/23/19 05:28 05:31 11:33 WBC 29.7 H RBC 3.59 L Hgb 10.1 L Hct 31.1 L MCV MCHC RDW 15.4 H Plt Count 47 L Lymph % (Auto) Ramsey % (Auto) Lymph # Ramsey # Eos # Seg Neutrophils % Seg Neuts % (Manual) 89.0 H Lymphocytes % (Manual) 6.0 L Monocytes % (Manual) Nucleated RBC % 1.0 H Seg Neutrophils # Seg Neutrophils # Man 26.4 H Lymphocytes # (Manual) Monocytes # (Manual) PT INR D-Dimer Heparin Anti-Xa Level POC ABG pH ABG pH POC ABG pCO2 POC ABG pO2 ABG pO2 ABG HCO3 ABG O2 Saturation ABG Base Excess ABG Hemoglobin Oxyhemoglobin Sodium Potassium Chloride Carbon Dioxide BUN Creatinine Glucose POC Glucose 122 H 113 H Lactic Acid Calcium Ionized Calcium Phosphorus Magnesium Iron TIBC Ferritin Total Bilirubin Direct Bilirubin AST ALT Alkaline Phosphatase Total Creatine Kinase CK-MB (CK-2) Troponin T C-Reactive Protein Serum Total Protein Total Protein Albumin Icxzb-4-Kolgtjxrk Nkusu-8-Nhomkmqzi PEP Interpretation Triglycerides LDL Cholesterol Direct HDL Cholesterol Free T4 PTH Intact Urine WBC (Auto) Urine Creatinine Salicylates Acetaminophen Crossmatch 03/23/19 03/24/19 03/24/19 17:47 00:00 04:50 WBC 35.0 H RBC Hgb 10.4 L Hct 32.4 L MCV MCHC RDW Plt Count 60 L Lymph % (Auto) Ramsey % (Auto) Lymph # Ramsey # Eos # Seg Neutrophils % Seg Neuts % (Manual) 93.0 H Lymphocytes % (Manual) 5.0 L Monocytes % (Manual) Nucleated RBC % 7.0 H Seg Neutrophils # Seg Neutrophils # Man 32.6 H Lymphocytes # (Manual) Monocytes # (Manual) PT INR D-Dimer Heparin Anti-Xa Level POC ABG pH ABG pH POC ABG pCO2 POC ABG pO2 ABG pO2 ABG HCO3 ABG O2 Saturation ABG Base Excess ABG Hemoglobin Oxyhemoglobin Sodium Potassium Chloride Carbon Dioxide BUN Creatinine Glucose POC Glucose 111 H 108 H Lactic Acid Calcium Ionized Calcium Phosphorus Magnesium Iron TIBC Ferritin Total Bilirubin Direct Bilirubin AST ALT Alkaline Phosphatase Total Creatine Kinase CK-MB (CK-2) Troponin T C-Reactive Protein Serum Total Protein Total Protein Albumin Xnbre-1-Cdlxsypfy Lxqxx-9-Wliqgxemd PEP Interpretation Triglycerides LDL Cholesterol Direct HDL Cholesterol Free T4 PTH Intact Urine WBC (Auto) Urine Creatinine Salicylates Acetaminophen Crossmatch 03/24/19 03/24/19 03/24/19 04:50 05:06 12:55 WBC RBC Hgb Hct MCV MCHC RDW Plt Count Lymph % (Auto) Ramsey % (Auto) Lymph # Ramsey # Eos # Seg Neutrophils % Seg Neuts % (Manual) Lymphocytes % (Manual) Monocytes % (Manual) Nucleated RBC % Seg Neutrophils # Seg Neutrophils # Man Lymphocytes # (Manual) Monocytes # (Manual) PT INR D-Dimer Heparin Anti-Xa Level POC ABG pH ABG pH POC ABG pCO2 POC ABG pO2 ABG pO2 ABG HCO3 ABG O2 Saturation ABG Base Excess ABG Hemoglobin Oxyhemoglobin Sodium 134 L Potassium 5.1 H Chloride 95.3 L Carbon Dioxide 21 L BUN 85 H Creatinine 6.4 H Glucose 109 H POC Glucose 112 H 110 H Lactic Acid Calcium 5.8 L* Ionized Calcium Phosphorus Magnesium Iron TIBC Ferritin Total Bilirubin Direct Bilirubin AST ALT Alkaline Phosphatase Total Creatine Kinase 5747 H CK-MB (CK-2) Troponin T C-Reactive Protein Serum Total Protein Total Protein Albumin Frtxe-7-Djumdombx Dietb-7-Iblppcssx PEP Interpretation Triglycerides LDL Cholesterol Direct HDL Cholesterol Free T4 PTH Intact Urine WBC (Auto) Urine Creatinine Salicylates Acetaminophen Crossmatch 03/24/19 03/25/19 03/25/19 23:29 05:00 05:00 WBC RBC Hgb Hct MCV MCHC RDW Plt Count Lymph % (Auto) Ramsey % (Auto) Lymph # Ramsey # Eos # Seg Neutrophils % Seg Neuts % (Manual) Lymphocytes % (Manual) Monocytes % (Manual) Nucleated RBC % Seg Neutrophils # Seg Neutrophils # Man Lymphocytes # (Manual) Monocytes # (Manual) PT INR D-Dimer Heparin Anti-Xa Level POC ABG pH ABG pH POC ABG pCO2 POC ABG pO2 ABG pO2 ABG HCO3 ABG O2 Saturation ABG Base Excess ABG Hemoglobin Oxyhemoglobin Sodium 133 L Potassium Chloride 94.0 L Carbon Dioxide 21 L BUN 81 H Creatinine 6.4 H Glucose POC Glucose 109 H Lactic Acid Calcium 5.5 L* Ionized Calcium Phosphorus Magnesium Iron TIBC Ferritin Total Bilirubin Direct Bilirubin AST 80 H ALT Alkaline Phosphatase 202 H Total Creatine Kinase 3589 H CK-MB (CK-2) Troponin T C-Reactive Protein Serum Total Protein Total Protein 5.3 L Albumin 2.4 L Efncc-4-Bypnbnbni Yimtm-4-Shsigpbmd PEP Interpretation Triglycerides LDL Cholesterol Direct HDL Cholesterol Free T4 PTH Intact 329.9 H Urine WBC (Auto) Urine Creatinine Salicylates Acetaminophen Crossmatch 03/25/19 03/25/19 03/26/19 05:00 06:30 04:30 WBC 23.3 H RBC 3.61 L Hgb 10.2 L Hct 31.2 L MCV MCHC RDW Plt Count 57 L Lymph % (Auto) Ramsey % (Auto) Lymph # Ramsey # Eos # Seg Neutrophils % Seg Neuts % (Manual) 92.0 H Lymphocytes % (Manual) 6.0 L Monocytes % (Manual) Nucleated RBC % Seg Neutrophils # Seg Neutrophils # Man 21.4 H Lymphocytes # (Manual) Monocytes # (Manual) PT INR D-Dimer Heparin Anti-Xa Level POC ABG pH ABG pH 7.326 L POC ABG pCO2 POC ABG pO2 ABG pO2 109.5 H 137.4 H ABG HCO3 18.8 L 18.6 L ABG O2 Saturation ABG Base Excess -4.4 L -6.8 L ABG Hemoglobin 10.1 L 9.9 L Oxyhemoglobin Sodium Potassium Chloride Carbon Dioxide BUN Creatinine Glucose POC Glucose Lactic Acid Calcium Ionized Calcium Phosphorus Magnesium Iron TIBC Ferritin Total Bilirubin Direct Bilirubin AST ALT Alkaline Phosphatase Total Creatine Kinase CK-MB (CK-2) Troponin T C-Reactive Protein Serum Total Protein Total Protein Albumin Wyiwp-9-Aljdioqpl Ffwdw-2-Ngkyycoge PEP Interpretation Triglycerides LDL Cholesterol Direct HDL Cholesterol Free T4 PTH Intact Urine WBC (Auto) Urine Creatinine Salicylates Acetaminophen Crossmatch 03/26/19 03/26/19 03/26/19 23:22 Unknown Unknown WBC 19.5 H RBC 3.44 L Hgb 9.8 L Hct 29.9 L MCV MCHC RDW Plt Count 85 L Lymph % (Auto) Ramsey % (Auto) Lymph # Ramsey # Eos # Seg Neutrophils % Seg Neuts % (Manual) 95.0 H Lymphocytes % (Manual) 3.0 L Monocytes % (Manual) Nucleated RBC % Seg Neutrophils # Seg Neutrophils # Man 18.5 H Lymphocytes # (Manual) 0.6 L Monocytes # (Manual) PT INR D-Dimer Heparin Anti-Xa Level POC ABG pH ABG pH POC ABG pCO2 POC ABG pO2 ABG pO2 ABG HCO3 ABG O2 Saturation ABG Base Excess ABG Hemoglobin Oxyhemoglobin Sodium 135 L Potassium 5.2 H D Chloride 92.2 L Carbon Dioxide 18 L BUN 109 H Creatinine 8.5 H Glucose 117 H POC Glucose 69 L Lactic Acid Calcium 4.5 L* D Ionized Calcium Phosphorus Magnesium Iron TIBC Ferritin Total Bilirubin Direct Bilirubin AST ALT Alkaline Phosphatase Total Creatine Kinase 4527 H CK-MB (CK-2) Troponin T C-Reactive Protein Serum Total Protein Total Protein Albumin Cbwzi-9-Phljoxzly Xsifa-3-Ztaaowoib PEP Interpretation Triglycerides LDL Cholesterol Direct HDL Cholesterol Free T4 PTH Intact Urine WBC (Auto) Urine Creatinine Salicylates Acetaminophen Crossmatch 03/27/19 03/27/19 03/27/19 04:30 04:30 09:00 WBC 19.2 H RBC 3.42 L Hgb 9.9 L Hct 30.0 L MCV MCHC RDW Plt Count 84 L Lymph % (Auto) Ramsey % (Auto) Lymph # Ramsey # Eos # Seg Neutrophils % Seg Neuts % (Manual) Lymphocytes % (Manual) Monocytes % (Manual) Nucleated RBC % Seg Neutrophils # Seg Neutrophils # Man Lymphocytes # (Manual) Monocytes # (Manual) PT INR D-Dimer Heparin Anti-Xa Level POC ABG pH ABG pH POC ABG pCO2 POC ABG pO2 ABG pO2 ABG HCO3 ABG O2 Saturation ABG Base Excess ABG Hemoglobin Oxyhemoglobin Sodium 135 L Potassium Chloride 93.5 L Carbon Dioxide BUN 84 H Creatinine 7.1 H Glucose POC Glucose Lactic Acid Calcium 5.0 L* Ionized Calcium Phosphorus Magnesium Iron TIBC Ferritin Total Bilirubin Direct Bilirubin AST 78 H ALT Alkaline Phosphatase 135 H Total Creatine Kinase 4677 H CK-MB (CK-2) Troponin T C-Reactive Protein Serum Total Protein Total Protein 4.8 L Albumin 2.3 L Lkgkm-4-Kqtcrxwip Ljarz-9-Phhzibrby PEP Interpretation Triglycerides 409 H LDL Cholesterol Direct HDL Cholesterol Free T4 PTH Intact Urine WBC (Auto) Urine Creatinine Salicylates Acetaminophen Crossmatch 03/27/19 03/27/1919 12:37 14:15 14:15 WBC RBC Hgb 9.7 L Hct 29.5 L MCV MCHC RDW Plt Count 87 L Lymph % (Auto) Ramsey % (Auto) Lymph # Ramsey # Eos # Seg Neutrophils % Seg Neuts % (Manual) Lymphocytes % (Manual) Monocytes % (Manual) Nucleated RBC % Seg Neutrophils # Seg Neutrophils # Man Lymphocytes # (Manual) Monocytes # (Manual) PT 15.9 H INR 1.30 H D-Dimer Heparin Anti-Xa Level POC ABG pH ABG pH POC ABG pCO2 POC ABG pO2 ABG pO2 ABG HCO3 ABG O2 Saturation ABG Base Excess ABG Hemoglobin Oxyhemoglobin Sodium Potassium Chloride Carbon Dioxide BUN Creatinine Glucose POC Glucose 129 H Lactic Acid Calcium Ionized Calcium Phosphorus Magnesium Iron TIBC Ferritin Total Bilirubin Direct Bilirubin AST ALT Alkaline Phosphatase Total Creatine Kinase CK-MB (CK-2) Troponin T C-Reactive Protein Serum Total Protein Total Protein Albumin Jyrft-6-Fbselqxyv Ygnug-1-Eotbsuxop PEP Interpretation Triglycerides LDL Cholesterol Direct HDL Cholesterol Free T4 PTH Intact Urine WBC (Auto) Urine Creatinine Salicylates Acetaminophen Crossmatch 03/27/19 03/27/19 03/27/19 18:00 19:22 19:23 WBC RBC Hgb Hct MCV MCHC RDW Plt Count Lymph % (Auto) Ramsey % (Auto) Lymph # Ramsey # Eos # Seg Neutrophils % Seg Neuts % (Manual) Lymphocytes % (Manual) Monocytes % (Manual) Nucleated RBC % Seg Neutrophils # Seg Neutrophils # Man Lymphocytes # (Manual) Monocytes # (Manual) PT INR D-Dimer Heparin Anti-Xa Level < 0.10 L POC ABG pH ABG pH POC ABG pCO2 POC ABG pO2 ABG pO2 ABG HCO3 ABG O2 Saturation ABG Base Excess ABG Hemoglobin Oxyhemoglobin Sodium Potassium Chloride Carbon Dioxide BUN Creatinine Glucose POC Glucose 121 H Lactic Acid Calcium Ionized Calcium Phosphorus Magnesium Iron TIBC Ferritin Total Bilirubin Direct Bilirubin AST ALT Alkaline Phosphatase Total Creatine Kinase 4517 H CK-MB (CK-2) Troponin T C-Reactive Protein Serum Total Protein Total Protein Albumin Smpks-2-Eeziartnu Intzm-7-Puiydlyae PEP Interpretation Triglycerides LDL Cholesterol Direct HDL Cholesterol Free T4 PTH Intact Urine WBC (Auto) Urine Creatinine Salicylates Acetaminophen Crossmatch 03/27/19 03/27/19 03/28/19 22:10 23:52 03:49 WBC RBC Hgb Hct MCV MCHC RDW Plt Count Lymph % (Auto) Ramsey % (Auto) Lymph # Ramsey # Eos # Seg Neutrophils % Seg Neuts % (Manual) Lymphocytes % (Manual) Monocytes % (Manual) Nucleated RBC % Seg Neutrophils # Seg Neutrophils # Man Lymphocytes # (Manual) Monocytes # (Manual) PT INR D-Dimer Heparin Anti-Xa Level POC ABG pH 7.338 L ABG pH POC ABG pCO2 33.1 L POC ABG pO2 ABG pO2 ABG HCO3 ABG O2 Saturation ABG Base Excess ABG Hemoglobin Oxyhemoglobin Sodium Potassium Chloride Carbon Dioxide BUN Creatinine Glucose POC Glucose 113 H 117 H Lactic Acid Calcium Ionized Calcium Phosphorus Magnesium Iron TIBC Ferritin Total Bilirubin Direct Bilirubin AST ALT Alkaline Phosphatase Total Creatine Kinase CK-MB (CK-2) Troponin T C-Reactive Protein Serum Total Protein Total Protein Albumin Owndk-0-Fvtducnpm Stpee-7-Fgwuxmepp PEP Interpretation Triglycerides LDL Cholesterol Direct HDL Cholesterol Free T4 PTH Intact Urine WBC (Auto) Urine Creatinine Salicylates Acetaminophen Crossmatch 03/28/19 03/28/19 03/28/19 05:13 05:13 06:18 WBC RBC Hgb Hct MCV MCHC RDW Plt Count Lymph % (Auto) Ramsey % (Auto) Lymph # Ramsey # Eos # Seg Neutrophils % Seg Neuts % (Manual) Lymphocytes % (Manual) Monocytes % (Manual) Nucleated RBC % Seg Neutrophils # Seg Neutrophils # Man Lymphocytes # (Manual) Monocytes # (Manual) PT INR D-Dimer Heparin Anti-Xa Level 0.23 L POC ABG pH ABG pH POC ABG pCO2 POC ABG pO2 ABG pO2 ABG HCO3 ABG O2 Saturation ABG Base Excess ABG Hemoglobin Oxyhemoglobin Sodium 135 L Potassium 5.5 H D Chloride 95.1 L Carbon Dioxide 16 L D BUN 129 H Creatinine 9.3 H Glucose 158 H POC Glucose 202 H Lactic Acid Calcium 4.0 L* D Ionized Calcium Phosphorus 12.40 H Magnesium Iron TIBC Ferritin Total Bilirubin Direct Bilirubin AST ALT Alkaline Phosphatase Total Creatine Kinase 4266 H CK-MB (CK-2) Troponin T C-Reactive Protein Serum Total Protein Total Protein Albumin Rhsrl-2-Jtuvwbcug Pretd-4-Njomfrnvx PEP Interpretation Triglycerides LDL Cholesterol Direct HDL Cholesterol Free T4 PTH Intact Urine WBC (Auto) Urine Creatinine Salicylates Acetaminophen Crossmatch 03/28/19 03/28/19 03/28/19 08:25 10:00 12:00 WBC RBC Hgb 4.9 L* D Hct 15.4 L* D MCV MCHC RDW Plt Count Lymph % (Auto) Ramsey % (Auto) Lymph # Ramsey # Eos # Seg Neutrophils % Seg Neuts % (Manual) Lymphocytes % (Manual) Monocytes % (Manual) Nucleated RBC % Seg Neutrophils # Seg Neutrophils # Man Lymphocytes # (Manual) Monocytes # (Manual) PT 17.9 H INR 1.52 H D-Dimer 4845.98 H Heparin Anti-Xa Level POC ABG pH ABG pH POC ABG pCO2 POC ABG pO2 ABG pO2 ABG HCO3 ABG O2 Saturation ABG Base Excess ABG Hemoglobin Oxyhemoglobin Sodium Potassium Chloride Carbon Dioxide BUN Creatinine Glucose POC Glucose Lactic Acid Calcium Ionized Calcium Phosphorus Magnesium Iron TIBC Ferritin Total Bilirubin Direct Bilirubin AST ALT Alkaline Phosphatase Total Creatine Kinase CK-MB (CK-2) Troponin T C-Reactive Protein Serum Total Protein Total Protein Albumin Dasib-5-Gabtsabig Rycst-9-Nhpcedxxj PEP Interpretation Triglycerides LDL Cholesterol Direct HDL Cholesterol Free T4 PTH Intact Urine WBC (Auto) Urine Creatinine Salicylates Acetaminophen Crossmatch See Detail 03/28/19 03/28/19 03/28/19 12:28 14:10 17:43 WBC RBC Hgb 5.9 L* Hct 18.3 L* MCV MCHC RDW Plt Count Lymph % (Auto) Ramsey % (Auto) Lymph # Ramsey # Eos # Seg Neutrophils % Seg Neuts % (Manual) Lymphocytes % (Manual) Monocytes % (Manual) Nucleated RBC % Seg Neutrophils # Seg Neutrophils # Man Lymphocytes # (Manual) Monocytes # (Manual) PT INR D-Dimer Heparin Anti-Xa Level POC ABG pH ABG pH POC ABG pCO2 POC ABG pO2 ABG pO2 ABG HCO3 ABG O2 Saturation ABG Base Excess ABG Hemoglobin Oxyhemoglobin Sodium Potassium Chloride Carbon Dioxide BUN Creatinine Glucose POC Glucose 153 H 159 H Lactic Acid Calcium Ionized Calcium Phosphorus Magnesium Iron TIBC Ferritin Total Bilirubin Direct Bilirubin AST ALT Alkaline Phosphatase Total Creatine Kinase CK-MB (CK-2) Troponin T C-Reactive Protein Serum Total Protein Total Protein Albumin Dhcfj-2-Dafqppfkd Zrsqa-6-Hhhifnmpy PEP Interpretation Triglycerides LDL Cholesterol Direct HDL Cholesterol Free T4 PTH Intact Urine WBC (Auto) Urine Creatinine Salicylates Acetaminophen Crossmatch 03/28/19 03/28/19 03/28/19 18:10 Unknown 23:59 WBC 24.8 H RBC 3.42 L Hgb 10.2 L D Hct 31.1 L D MCV MCHC RDW 15.4 H Plt Count 54 L Lymph % (Auto) Ramsey % (Auto) Lymph # Ramsey # Eos # Seg Neutrophils % Seg Neuts % (Manual) 91.0 H Lymphocytes % (Manual) 8.0 L Monocytes % (Manual) Nucleated RBC % Seg Neutrophils # Seg Neutrophils # Man 22.6 H Lymphocytes # (Manual) Monocytes # (Manual) PT INR D-Dimer Heparin Anti-Xa Level POC ABG pH ABG pH POC ABG pCO2 POC ABG pO2 ABG pO2 ABG HCO3 ABG O2 Saturation ABG Base Excess ABG Hemoglobin Oxyhemoglobin Sodium Potassium 5.7 H Chloride Carbon Dioxide BUN Creatinine Glucose POC Glucose 107 H Lactic Acid Calcium Ionized Calcium Phosphorus Magnesium Iron TIBC Ferritin Total Bilirubin Direct Bilirubin AST ALT Alkaline Phosphatase Total Creatine Kinase CK-MB (CK-2) Troponin T C-Reactive Protein Serum Total Protein Total Protein Albumin Laglv-4-Nsovkxrva Jijmg-7-Nskedgosu PEP Interpretation Triglycerides LDL Cholesterol Direct HDL Cholesterol Free T4 PTH Intact Urine WBC (Auto) Urine Creatinine Salicylates Acetaminophen Crossmatch 03/29/19 03/29/19 03/29/19 04:29 05:46 06:22 WBC RBC Hgb 8.6 L Hct 25.7 L MCV MCHC RDW Plt Count 93 L Lymph % (Auto) Ramsey % (Auto) Lymph # Ramsey # Eos # Seg Neutrophils % Seg Neuts % (Manual) Lymphocytes % (Manual) Monocytes % (Manual) Nucleated RBC % Seg Neutrophils # Seg Neutrophils # Man Lymphocytes # (Manual) Monocytes # (Manual) PT INR D-Dimer Heparin Anti-Xa Level POC ABG pH ABG pH POC ABG pCO2 32.2 L POC ABG pO2 ABG pO2 ABG HCO3 ABG O2 Saturation ABG Base Excess ABG Hemoglobin Oxyhemoglobin Sodium Potassium Chloride Carbon Dioxide BUN Creatinine Glucose POC Glucose 113 H Lactic Acid Calcium Ionized Calcium Phosphorus Magnesium Iron TIBC Ferritin Total Bilirubin Direct Bilirubin AST ALT Alkaline Phosphatase Total Creatine Kinase CK-MB (CK-2) Troponin T C-Reactive Protein Serum Total Protein Total Protein Albumin Apzmt-1-Lsoxdpmsx Dyuoz-6-Lzuzdeneb PEP Interpretation Triglycerides LDL Cholesterol Direct HDL Cholesterol Free T4 PTH Intact Urine WBC (Auto) Urine Creatinine Salicylates Acetaminophen Crossmatch 03/29/19 03/29/19 03/29/19 06:22 06:22 06:22 WBC 23.2 H RBC 2.91 L Hgb 8.6 L Hct 25.8 L MCV MCHC RDW Plt Count 91 L Lymph % (Auto) Ramsey % (Auto) Lymph # Ramsey # Eos # Seg Neutrophils % Seg Neuts % (Manual) Lymphocytes % (Manual) Monocytes % (Manual) Nucleated RBC % Seg Neutrophils # Seg Neutrophils # Man Lymphocytes # (Manual) Monocytes # (Manual) PT INR D-Dimer Heparin Anti-Xa Level POC ABG pH ABG pH POC ABG pCO2 POC ABG pO2 ABG pO2 ABG HCO3 ABG O2 Saturation ABG Base Excess ABG Hemoglobin Oxyhemoglobin Sodium 133 L Potassium Chloride 93.8 L Carbon Dioxide 18 L BUN 109 H Creatinine 7.4 H Glucose 124 H POC Glucose Lactic Acid Calcium 4.6 L* Ionized Calcium Phosphorus Magnesium Iron TIBC Ferritin Total Bilirubin Direct Bilirubin AST ALT Alkaline Phosphatase Total Creatine Kinase 3401 H CK-MB (CK-2) Troponin T C-Reactive Protein Serum Total Protein Total Protein Albumin Rppna-7-Cgtrnqflx Jblsn-4-Zxpsfethe PEP Interpretation Triglycerides 309 H LDL Cholesterol Direct HDL Cholesterol Free T4 PTH Intact Urine WBC (Auto) Urine Creatinine Salicylates Acetaminophen Crossmatch 03/29/19 03/29/19 03/29/19 11:48 11:48 18:24 WBC RBC Hgb 7.8 L Hct 23.2 L MCV MCHC RDW Plt Count Lymph % (Auto) Ramsey % (Auto) Lymph # Ramsey # Eos # Seg Neutrophils % Seg Neuts % (Manual) Lymphocytes % (Manual) Monocytes % (Manual) Nucleated RBC % Seg Neutrophils # Seg Neutrophils # Man Lymphocytes # (Manual) Monocytes # (Manual) PT 15.3 H INR 1.24 H D-Dimer Heparin Anti-Xa Level POC ABG pH ABG pH POC ABG pCO2 POC ABG pO2 ABG pO2 ABG HCO3 ABG O2 Saturation ABG Base Excess ABG Hemoglobin Oxyhemoglobin Sodium Potassium Chloride Carbon Dioxide BUN Creatinine Glucose POC Glucose 122 H Lactic Acid Calcium Ionized Calcium Phosphorus Magnesium Iron TIBC Ferritin Total Bilirubin Direct Bilirubin AST ALT Alkaline Phosphatase Total Creatine Kinase CK-MB (CK-2) Troponin T C-Reactive Protein Serum Total Protein Total Protein Albumin Hurgk-2-Jydyysfoy Zujho-5-Antmxshaq PEP Interpretation Triglycerides LDL Cholesterol Direct HDL Cholesterol Free T4 PTH Intact Urine WBC (Auto) Urine Creatinine Salicylates Acetaminophen Crossmatch 03/30/19 03/30/19 03/30/19 00:40 04:31 05:04 WBC RBC Hgb 7.6 L Hct 23.0 L MCV MCHC RDW Plt Count Lymph % (Auto) Ramsey % (Auto) Lymph # Ramsey # Eos # Seg Neutrophils % Seg Neuts % (Manual) Lymphocytes % (Manual) Monocytes % (Manual) Nucleated RBC % Seg Neutrophils # Seg Neutrophils # Man Lymphocytes # (Manual) Monocytes # (Manual) PT INR D-Dimer Heparin Anti-Xa Level POC ABG pH 7.346 L ABG pH POC ABG pCO2 POC ABG pO2 62 L ABG pO2 ABG HCO3 ABG O2 Saturation ABG Base Excess ABG Hemoglobin Oxyhemoglobin Sodium Potassium Chloride Carbon Dioxide BUN 79 H Creatinine 6.4 H Glucose POC Glucose Lactic Acid Calcium 6.1 L D Ionized Calcium Phosphorus Magnesium Iron TIBC Ferritin Total Bilirubin Direct Bilirubin AST ALT Alkaline Phosphatase Total Creatine Kinase CK-MB (CK-2) Troponin T C-Reactive Protein Serum Total Protein Total Protein Albumin Vfrdk-7-Swxfyiopr Sprwy-4-Ypfjjpkvq PEP Interpretation Triglycerides LDL Cholesterol Direct HDL Cholesterol Free T4 PTH Intact Urine WBC (Auto) Urine Creatinine Salicylates Acetaminophen Crossmatch 03/30/19 03/30/19 03/30/19 08:45 12:09 22:43 WBC 14.3 H RBC 2.33 L Hgb 7.0 L 7.4 L Hct 21.0 L 22.3 L MCV MCHC RDW 15.6 H Plt Count 135 L Lymph % (Auto) Ramsey % (Auto) Lymph # Ramsey # Eos # Seg Neutrophils % Seg Neuts % (Manual) Lymphocytes % (Manual) Monocytes % (Manual) Nucleated RBC % Seg Neutrophils # Seg Neutrophils # Man Lymphocytes # (Manual) Monocytes # (Manual) PT INR D-Dimer Heparin Anti-Xa Level POC ABG pH ABG pH POC ABG pCO2 POC ABG pO2 ABG pO2 ABG HCO3 ABG O2 Saturation ABG Base Excess ABG Hemoglobin Oxyhemoglobin Sodium Potassium Chloride Carbon Dioxide BUN Creatinine Glucose POC Glucose Lactic Acid Calcium Ionized Calcium 3.7 L Phosphorus Magnesium Iron TIBC Ferritin Total Bilirubin Direct Bilirubin AST ALT Alkaline Phosphatase Total Creatine Kinase CK-MB (CK-2) Troponin T C-Reactive Protein Serum Total Protein Total Protein Albumin Ltnqk-9-Jiblokxvu Lkbxb-5-Rakwfendm PEP Interpretation Triglycerides LDL Cholesterol Direct HDL Cholesterol Free T4 PTH Intact Urine WBC (Auto) Urine Creatinine Salicylates Acetaminophen Crossmatch 03/30/19 03/30/19 03/31/19 23:38 Unknown 04:44 WBC 11.5 H RBC 2.40 L Hgb 7.3 L Hct 21.9 L MCV MCHC RDW 15.4 H Plt Count Lymph % (Auto) 10.6 L Ramsey % (Auto) Lymph # Ramsey # Eos # Seg Neutrophils % 81.7 H Seg Neuts % (Manual) Lymphocytes % (Manual) Monocytes % (Manual) Nucleated RBC % Seg Neutrophils # 9.4 H Seg Neutrophils # Man Lymphocytes # (Manual) Monocytes # (Manual) PT INR D-Dimer Heparin Anti-Xa Level POC ABG pH ABG pH POC ABG pCO2 POC ABG pO2 ABG pO2 ABG HCO3 ABG O2 Saturation ABG Base Excess ABG Hemoglobin Oxyhemoglobin Sodium Potassium Chloride Carbon Dioxide BUN Creatinine Glucose POC Glucose 155 H Lactic Acid Calcium Ionized Calcium Phosphorus Magnesium Iron TIBC Ferritin Total Bilirubin Direct Bilirubin 0.4 H AST 63 H ALT Alkaline Phosphatase Total Creatine Kinase CK-MB (CK-2) Troponin T C-Reactive Protein Serum Total Protein Total Protein 4.9 L Albumin 2.2 L Uzpgf-0-Ldgdrxone Ruphb-3-Bnnktfotn PEP Interpretation Triglycerides LDL Cholesterol Direct HDL Cholesterol Free T4 PTH Intact Urine WBC (Auto) Urine Creatinine Salicylates Acetaminophen Crossmatch 03/31/19 03/31/19 03/31/19 04:44 05:44 08:20 WBC RBC Hgb Hct MCV MCHC RDW Plt Count Lymph % (Auto) Ramsey % (Auto) Lymph # Ramsey # Eos # Seg Neutrophils % Seg Neuts % (Manual) Lymphocytes % (Manual) Monocytes % (Manual) Nucleated RBC % Seg Neutrophils # Seg Neutrophils # Man Lymphocytes # (Manual) Monocytes # (Manual) PT INR D-Dimer Heparin Anti-Xa Level POC ABG pH ABG pH POC ABG pCO2 53.5 H POC ABG pO2 62 L ABG pO2 ABG HCO3 ABG O2 Saturation ABG Base Excess ABG Hemoglobin Oxyhemoglobin Sodium 135 L Potassium Chloride 96.7 L Carbon Dioxide 19 L BUN 94 H Creatinine 7.8 H Glucose POC Glucose Lactic Acid Calcium 5.3 L* Ionized Calcium Phosphorus 8.20 H Magnesium Iron TIBC Ferritin Total Bilirubin Direct Bilirubin 0.4 H AST 60 H ALT Alkaline Phosphatase Total Creatine Kinase CK-MB (CK-2) Troponin T C-Reactive Protein Serum Total Protein Total Protein 4.8 L Albumin 2.1 L Upsxs-9-Ssaezxyjc Kvfgn-2-Smqczyxka PEP Interpretation Triglycerides LDL Cholesterol Direct HDL Cholesterol Free T4 PTH Intact Urine WBC (Auto) Urine Creatinine Salicylates Acetaminophen Crossmatch 03/31/19 04/01/19 04/01/19 22:14 04:27 04:27 WBC RBC 2.60 L Hgb 8.0 L Hct 24.1 L MCV MCHC RDW 15.7 H Plt Count Lymph % (Auto) 7.9 L Ramsey % (Auto) Lymph # 0.7 L Ramsey # Eos # Seg Neutrophils % 83.6 H Seg Neuts % (Manual) Lymphocytes % (Manual) Monocytes % (Manual) Nucleated RBC % Seg Neutrophils # Seg Neutrophils # Man Lymphocytes # (Manual) Monocytes # (Manual) PT INR D-Dimer Heparin Anti-Xa Level POC ABG pH 7.286 L ABG pH POC ABG pCO2 54.7 H POC ABG pO2 179 H ABG pO2 ABG HCO3 ABG O2 Saturation ABG Base Excess ABG Hemoglobin Oxyhemoglobin Sodium Potassium Chloride Carbon Dioxide BUN 68 H Creatinine 6.6 H Glucose POC Glucose Lactic Acid Calcium 6.5 L D Ionized Calcium Phosphorus 7.30 H Magnesium Iron TIBC Ferritin Total Bilirubin Direct Bilirubin AST ALT Alkaline Phosphatase Total Creatine Kinase 1652 H CK-MB (CK-2) Troponin T C-Reactive Protein Serum Total Protein Total Protein Albumin Zpvdj-7-Gvzdoivdl Tnzet-1-Pltyvbyvd PEP Interpretation Triglycerides LDL Cholesterol Direct HDL Cholesterol Free T4 PTH Intact Urine WBC (Auto) Urine Creatinine Salicylates Acetaminophen Crossmatch 04/01/19 04/01/19 04/01/19 05:14 05:37 18:37 WBC RBC Hgb Hct MCV MCHC RDW Plt Count Lymph % (Auto) Ramsey % (Auto) Lymph # Ramsey # Eos # Seg Neutrophils % Seg Neuts % (Manual) Lymphocytes % (Manual) Monocytes % (Manual) Nucleated RBC % Seg Neutrophils # Seg Neutrophils # Man Lymphocytes # (Manual) Monocytes # (Manual) PT INR D-Dimer Heparin Anti-Xa Level POC ABG pH 7.283 L ABG pH POC ABG pCO2 53.4 H POC ABG pO2 241 H ABG pO2 ABG HCO3 ABG O2 Saturation ABG Base Excess ABG Hemoglobin Oxyhemoglobin Sodium Potassium Chloride Carbon Dioxide BUN Creatinine Glucose POC Glucose 111 H 119 H Lactic Acid Calcium Ionized Calcium Phosphorus Magnesium Iron TIBC Ferritin Total Bilirubin Direct Bilirubin AST ALT Alkaline Phosphatase Total Creatine Kinase CK-MB (CK-2) Troponin T C-Reactive Protein Serum Total Protein Total Protein Albumin Owehv-6-Mntinqsvh Suhhw-7-Ytpxwafkj PEP Interpretation Triglycerides LDL Cholesterol Direct HDL Cholesterol Free T4 PTH Intact Urine WBC (Auto) Urine Creatinine Salicylates Acetaminophen Crossmatch 04/01/19 04/02/19 04/02/19 21:28 04:40 05:03 WBC RBC 2.36 L Hgb 7.2 L Hct 21.9 L MCV MCHC RDW 16.0 H Plt Count Lymph % (Auto) 10.8 L Ramsey % (Auto) Lymph # 0.8 L Ramsey # Eos # Seg Neutrophils % 80.3 H Seg Neuts % (Manual) Lymphocytes % (Manual) Monocytes % (Manual) Nucleated RBC % Seg Neutrophils # Seg Neutrophils # Man Lymphocytes # (Manual) Monocytes # (Manual) PT INR D-Dimer Heparin Anti-Xa Level POC ABG pH 7.299 L 7.300 L ABG pH POC ABG pCO2 48.2 H 45.2 H POC ABG pO2 133 H 107 H ABG pO2 ABG HCO3 ABG O2 Saturation ABG Base Excess ABG Hemoglobin Oxyhemoglobin Sodium Potassium Chloride Carbon Dioxide BUN Creatinine Glucose POC Glucose Lactic Acid Calcium Ionized Calcium Phosphorus Magnesium Iron TIBC Ferritin Total Bilirubin Direct Bilirubin AST ALT Alkaline Phosphatase Total Creatine Kinase CK-MB (CK-2) Troponin T C-Reactive Protein Serum Total Protein Total Protein Albumin Smmij-2-Nxcqabjbs Kiubv-1-Yuuvtrshq PEP Interpretation Triglycerides LDL Cholesterol Direct HDL Cholesterol Free T4 PTH Intact Urine WBC (Auto) Urine Creatinine Salicylates Acetaminophen Crossmatch 04/02/19 04/02/19 04/02/19 05:03 05:03 12:15 WBC RBC Hgb 7.4 L Hct 22.6 L MCV MCHC RDW Plt Count Lymph % (Auto) Ramsey % (Auto) Lymph # Ramsey # Eos # Seg Neutrophils % Seg Neuts % (Manual) Lymphocytes % (Manual) Monocytes % (Manual) Nucleated RBC % Seg Neutrophils # Seg Neutrophils # Man Lymphocytes # (Manual) Monocytes # (Manual) PT INR D-Dimer Heparin Anti-Xa Level POC ABG pH ABG pH POC ABG pCO2 POC ABG pO2 ABG pO2 ABG HCO3 ABG O2 Saturation ABG Base Excess ABG Hemoglobin Oxyhemoglobin Sodium 136 L Potassium Chloride 97.8 L Carbon Dioxide 18 L BUN 82 H Creatinine 8.2 H Glucose POC Glucose Lactic Acid Calcium 6.7 L Ionized Calcium Phosphorus 7.50 H Magnesium Iron 26 L TIBC 138 L Ferritin 607.0 H Total Bilirubin Direct Bilirubin AST ALT Alkaline Phosphatase Total Creatine Kinase CK-MB (CK-2) Troponin T C-Reactive Protein Serum Total Protein Total Protein Albumin Lcoqn-8-Dlhkodmhc Owiul-8-Liyuqqkbv PEP Interpretation Triglycerides LDL Cholesterol Direct HDL Cholesterol Free T4 PTH Intact Urine WBC (Auto) Urine Creatinine Salicylates Acetaminophen Crossmatch 04/02/19 04/02/19 04/03/19 16:34 17:14 04:18 WBC RBC Hgb Hct MCV MCHC RDW Plt Count Lymph % (Auto) Ramsey % (Auto) Lymph # Ramsey # Eos # Seg Neutrophils % Seg Neuts % (Manual) Lymphocytes % (Manual) Monocytes % (Manual) Nucleated RBC % Seg Neutrophils # Seg Neutrophils # Man Lymphocytes # (Manual) Monocytes # (Manual) PT INR D-Dimer Heparin Anti-Xa Level POC ABG pH ABG pH POC ABG pCO2 POC ABG pO2 146 H ABG pO2 ABG HCO3 ABG O2 Saturation ABG Base Excess ABG Hemoglobin Oxyhemoglobin Sodium Potassium Chloride Carbon Dioxide BUN Creatinine Glucose POC Glucose 108 H Lactic Acid Calcium Ionized Calcium Phosphorus Magnesium Iron TIBC Ferritin Total Bilirubin Direct Bilirubin AST ALT Alkaline Phosphatase Total Creatine Kinase CK-MB (CK-2) Troponin T C-Reactive Protein Serum Total Protein Total Protein Albumin Wylbh-0-Xxfogsozp Avwhh-7-Zszlicjrp PEP Interpretation Triglycerides LDL Cholesterol Direct HDL Cholesterol Free T4 PTH Intact Urine WBC (Auto) Urine Creatinine Salicylates Acetaminophen Crossmatch See Detail 04/03/19 04/03/19 04/03/19 04:25 08:30 18:24 WBC RBC 2.40 L Hgb 7.3 L Hct 21.9 L MCV MCHC RDW Plt Count Lymph % (Auto) Ramsey % (Auto) 7.7 H Lymph # 0.9 L Ramsey # Eos # Seg Neutrophils % 74.6 H Seg Neuts % (Manual) Lymphocytes % (Manual) Monocytes % (Manual) Nucleated RBC % Seg Neutrophils # Seg Neutrophils # Man Lymphocytes # (Manual) Monocytes # (Manual) PT INR D-Dimer Heparin Anti-Xa Level POC ABG pH ABG pH POC ABG pCO2 POC ABG pO2 ABG pO2 ABG HCO3 ABG O2 Saturation ABG Base Excess ABG Hemoglobin Oxyhemoglobin Sodium 136 L Potassium Chloride 97.0 L Carbon Dioxide BUN 58 H Creatinine 7.3 H Glucose POC Glucose 106 H Lactic Acid Calcium 7.5 L Ionized Calcium Phosphorus 5.80 H D Magnesium Iron TIBC Ferritin Total Bilirubin Direct Bilirubin AST ALT Alkaline Phosphatase Total Creatine Kinase CK-MB (CK-2) Troponin T C-Reactive Protein Serum Total Protein Total Protein Albumin Ayshc-5-Ttigmqeuj Hzcvr-0-Gatywyzfc PEP Interpretation Triglycerides LDL Cholesterol Direct HDL Cholesterol Free T4 PTH Intact Urine WBC (Auto) Urine Creatinine Salicylates Acetaminophen Crossmatch 04/03/19 04/04/19 04/04/19 23:43 04:47 04:47 WBC RBC 2.72 L Hgb 8.3 L Hct 24.7 L MCV MCHC RDW 15.6 H Plt Count Lymph % (Auto) Ramsey % (Auto) 10.1 H Lymph # 0.8 L Ramsey # Eos # Seg Neutrophils % 71.4 H Seg Neuts % (Manual) Lymphocytes % (Manual) Monocytes % (Manual) Nucleated RBC % Seg Neutrophils # Seg Neutrophils # Man Lymphocytes # (Manual) Monocytes # (Manual) PT INR D-Dimer Heparin Anti-Xa Level POC ABG pH ABG pH POC ABG pCO2 POC ABG pO2 ABG pO2 123.8 H ABG HCO3 ABG O2 Saturation ABG Base Excess -3.0 L ABG Hemoglobin 7.9 L Oxyhemoglobin Sodium 134 L Potassium Chloride 97.9 L Carbon Dioxide BUN 64 H Creatinine 8.1 H Glucose POC Glucose Lactic Acid Calcium 7.2 L Ionized Calcium Phosphorus Magnesium Iron TIBC Ferritin Total Bilirubin Direct Bilirubin AST ALT Alkaline Phosphatase Total Creatine Kinase CK-MB (CK-2) Troponin T C-Reactive Protein Serum Total Protein Total Protein Albumin Frcar-5-Nbdbediol Vhtro-9-Zvydbdfcw PEP Interpretation Triglycerides LDL Cholesterol Direct HDL Cholesterol Free T4 PTH Intact Urine WBC (Auto) Urine Creatinine Salicylates Acetaminophen Crossmatch 04/04/19 04/04/19 04/04/19 06:07 13:40 18:18 WBC RBC Hgb Hct MCV MCHC RDW Plt Count Lymph % (Auto) Ramsey % (Auto) Lymph # Ramsey # Eos # Seg Neutrophils % Seg Neuts % (Manual) Lymphocytes % (Manual) Monocytes % (Manual) Nucleated RBC % Seg Neutrophils # Seg Neutrophils # Man Lymphocytes # (Manual) Monocytes # (Manual) PT INR D-Dimer Heparin Anti-Xa Level POC ABG pH ABG pH POC ABG pCO2 POC ABG pO2 ABG pO2 95.9 H ABG HCO3 ABG O2 Saturation ABG Base Excess -3.0 L ABG Hemoglobin 8.5 L Oxyhemoglobin Sodium Potassium Chloride Carbon Dioxide BUN Creatinine Glucose POC Glucose 107 H 107 H Lactic Acid Calcium Ionized Calcium Phosphorus Magnesium Iron TIBC Ferritin Total Bilirubin Direct Bilirubin AST ALT Alkaline Phosphatase Total Creatine Kinase CK-MB (CK-2) Troponin T C-Reactive Protein Serum Total Protein Total Protein Albumin Pyejz-9-Agrrhiibd Zwalo-9-Shkhurkcc PEP Interpretation Triglycerides LDL Cholesterol Direct HDL Cholesterol Free T4 PTH Intact Urine WBC (Auto) Urine Creatinine Salicylates Acetaminophen Crossmatch 04/04/19 04/05/19 04/05/19 21:22 04:09 04:09 WBC RBC 2.76 L Hgb 8.4 L Hct 25.4 L MCV MCHC RDW 15.8 H Plt Count 133 L Lymph % (Auto) Ramsey % (Auto) 9.6 H Lymph # 0.7 L Ramsey # Eos # Seg Neutrophils % 72.6 H Seg Neuts % (Manual) Lymphocytes % (Manual) Monocytes % (Manual) Nucleated RBC % Seg Neutrophils # Seg Neutrophils # Man Lymphocytes # (Manual) Monocytes # (Manual) PT INR D-Dimer Heparin Anti-Xa Level POC ABG pH ABG pH POC ABG pCO2 47.2 H POC ABG pO2 137 H ABG pO2 ABG HCO3 ABG O2 Saturation ABG Base Excess ABG Hemoglobin Oxyhemoglobin Sodium 136 L Potassium Chloride Carbon Dioxide BUN 46 H Creatinine 6.7 H Glucose POC Glucose Lactic Acid Calcium 7.7 L Ionized Calcium Phosphorus Magnesium Iron TIBC Ferritin Total Bilirubin Direct Bilirubin AST ALT Alkaline Phosphatase Total Creatine Kinase CK-MB (CK-2) Troponin T C-Reactive Protein Serum Total Protein Total Protein Albumin Kfnbg-6-Nsqgqlgux Ioypf-7-Lpncvogez PEP Interpretation Triglycerides LDL Cholesterol Direct HDL Cholesterol Free T4 PTH Intact Urine WBC (Auto) Urine Creatinine Salicylates Acetaminophen Crossmatch 04/05/19 04/05/19 04/05/19 05:28 06:14 16:50 WBC RBC Hgb Hct MCV MCHC RDW Plt Count Lymph % (Auto) Ramsey % (Auto) Lymph # Ramsey # Eos # Seg Neutrophils % Seg Neuts % (Manual) Lymphocytes % (Manual) Monocytes % (Manual) Nucleated RBC % Seg Neutrophils # Seg Neutrophils # Man Lymphocytes # (Manual) Monocytes # (Manual) PT INR D-Dimer Heparin Anti-Xa Level POC ABG pH ABG pH POC ABG pCO2 POC ABG pO2 67 L ABG pO2 ABG HCO3 ABG O2 Saturation ABG Base Excess ABG Hemoglobin Oxyhemoglobin Sodium Potassium Chloride Carbon Dioxide BUN Creatinine Glucose POC Glucose 108 H Lactic Acid Calcium Ionized Calcium Phosphorus Magnesium Iron TIBC Ferritin Total Bilirubin Direct Bilirubin AST ALT Alkaline Phosphatase Total Creatine Kinase CK-MB (CK-2) Troponin T C-Reactive Protein Serum Total Protein Total Protein Albumin Aojye-8-Nbmuffuco Pacdl-5-Tjfzydlgj PEP Interpretation Triglycerides LDL Cholesterol Direct HDL Cholesterol Free T4 PTH Intact Urine WBC (Auto) 40.0 H Urine Creatinine Salicylates Acetaminophen Crossmatch 04/05/19 04/06/19 04/06/19 17:22 00:13 04:44 WBC RBC 2.48 L Hgb 7.5 L Hct 22.9 L MCV MCHC RDW 16.0 H Plt Count 107 L Lymph % (Auto) Ramsey % (Auto) 10.7 H Lymph # 1.0 L Ramsey # Eos # Seg Neutrophils % Seg Neuts % (Manual) Lymphocytes % (Manual) Monocytes % (Manual) Nucleated RBC % Seg Neutrophils # Seg Neutrophils # Man Lymphocytes # (Manual) Monocytes # (Manual) PT INR D-Dimer Heparin Anti-Xa Level POC ABG pH ABG pH POC ABG pCO2 POC ABG pO2 ABG pO2 ABG HCO3 ABG O2 Saturation ABG Base Excess ABG Hemoglobin Oxyhemoglobin Sodium Potassium Chloride Carbon Dioxide BUN Creatinine Glucose POC Glucose 118 H 138 H Lactic Acid Calcium Ionized Calcium Phosphorus Magnesium Iron TIBC Ferritin Total Bilirubin Direct Bilirubin AST ALT Alkaline Phosphatase Total Creatine Kinase CK-MB (CK-2) Troponin T C-Reactive Protein Serum Total Protein Total Protein Albumin Dicrf-4-Jvpnjfykw Zllyt-5-Zecgzsniy PEP Interpretation Triglycerides LDL Cholesterol Direct HDL Cholesterol Free T4 PTH Intact Urine WBC (Auto) Urine Creatinine Salicylates Acetaminophen Crossmatch 04/06/19 04/06/19 04/06/19 04:44 05:20 05:23 WBC RBC Hgb Hct MCV MCHC RDW Plt Count Lymph % (Auto) [place] % (Auto) Lymph # Ramsey # Eos # Seg Neutrophils % Seg Neuts % (Manual) Lymphocytes % (Manual) Monocytes % (Manual) Nucleated RBC % Seg Neutrophils # Seg Neutrophils # Man Lymphocytes # (Manual) Monocytes # (Manual) PT INR D-Dimer Heparin Anti-Xa Level POC ABG pH ABG pH POC ABG pCO2 POC ABG pO2 ABG pO2 104.0 H ABG HCO3 ABG O2 Saturation ABG Base Excess -2.1 L ABG Hemoglobin 7.3 L Oxyhemoglobin Sodium Potassium Chloride Carbon Dioxide BUN 64 H Creatinine 8.2 H Glucose 103 H POC Glucose 118 H Lactic Acid Calcium 7.3 L Ionized Calcium Phosphorus Magnesium Iron TIBC Ferritin Total Bilirubin Direct Bilirubin AST ALT Alkaline Phosphatase Total Creatine Kinase CK-MB (CK-2) Troponin T C-Reactive Protein Serum Total Protein Total Protein Albumin Bnanq-0-Gjxjgrtuk Dbkoz-4-Cefyibdyd PEP Interpretation Triglycerides LDL Cholesterol Direct HDL Cholesterol Free T4 PTH Intact Urine WBC (Auto) Urine Creatinine Salicylates Acetaminophen Crossmatch 04/06/19 04/07/19 04/07/19 12:02 05:40 05:40 WBC RBC 2.59 L Hgb 7.9 L Hct 23.8 L MCV MCHC RDW 15.8 H Plt Count 89 L Lymph % (Auto) Ramsey % (Auto) 10.3 H Lymph # 1.1 L Ramsey # Eos # Seg Neutrophils % Seg Neuts % (Manual) Lymphocytes % (Manual) Monocytes % (Manual) Nucleated RBC % Seg Neutrophils # Seg Neutrophils # Man Lymphocytes # (Manual) Monocytes # (Manual) PT INR D-Dimer Heparin Anti-Xa Level POC ABG pH ABG pH POC ABG pCO2 POC ABG pO2 ABG pO2 ABG HCO3 ABG O2 Saturation ABG Base Excess ABG Hemoglobin Oxyhemoglobin Sodium 136 L Potassium 3.5 L Chloride Carbon Dioxide BUN 46 H Creatinine 6.2 H Glucose POC Glucose 108 H Lactic Acid Calcium 7.9 L Ionized Calcium Phosphorus Magnesium Iron TIBC Ferritin Total Bilirubin Direct Bilirubin AST ALT Alkaline Phosphatase Total Creatine Kinase CK-MB (CK-2) Troponin T C-Reactive Protein Serum Total Protein Total Protein Albumin Cgrqo-9-Bhxtremwp Rqwim-5-Ltzdgxvdm PEP Interpretation Triglycerides LDL Cholesterol Direct HDL Cholesterol Free T4 PTH Intact Urine WBC (Auto) Urine Creatinine Salicylates Acetaminophen Crossmatch 04/07/19 04/09/19 04/09/19 12:57 04:28 04:28 WBC RBC 2.85 L Hgb 8.7 L Hct 26.2 L MCV MCHC RDW 15.6 H Plt Count Lymph % (Auto) [place] % (Auto) 10.4 H Lymph # 1.0 L [place] # Eos # Seg Neutrophils % 73.3 H Seg Neuts % (Manual) Lymphocytes % (Manual) Monocytes % (Manual) Nucleated RBC % Seg Neutrophils # Seg Neutrophils # Man Lymphocytes # (Manual) Monocytes # (Manual) PT INR D-Dimer Heparin Anti-Xa Level POC ABG pH ABG pH POC ABG pCO2 POC ABG pO2 107 H ABG pO2 ABG HCO3 ABG O2 Saturation ABG Base Excess ABG Hemoglobin Oxyhemoglobin Sodium Potassium 3.5 L Chloride 97.8 L Carbon Dioxide BUN 62 H Creatinine 8.1 H Glucose POC Glucose Lactic Acid Calcium 8.2 L Ionized Calcium Phosphorus 5.10 H Magnesium Iron TIBC Ferritin Total Bilirubin Direct Bilirubin AST ALT Alkaline Phosphatase Total Creatine Kinase CK-MB (CK-2) Troponin T C-Reactive Protein Serum Total Protein Total Protein Albumin Nmtee-3-Lonowizsl Mccmm-5-Ivlbapmcs PEP Interpretation Triglycerides LDL Cholesterol Direct HDL Cholesterol Free T4 PTH Intact Urine WBC (Auto) Urine Creatinine Salicylates Acetaminophen Crossmatch 04/10/19 04/11/19 04/11/19 18:15 00:25 04:16 WBC 11.5 H RBC 2.91 L Hgb 8.9 L Hct 27.6 L MCV 95 H MCHC RDW 17.5 H Plt Count Lymph % (Auto) Ramsey % (Auto) Lymph # Ramsey # Eos # Seg Neutrophils % Seg Neuts % (Manual) 71.0 H Lymphocytes % (Manual) Monocytes % (Manual) 8.0 H Nucleated RBC % Seg Neutrophils # Seg Neutrophils # Man 8.2 H Lymphocytes # (Manual) Monocytes # (Manual) 0.9 H PT INR D-Dimer Heparin Anti-Xa Level POC ABG pH ABG pH POC ABG pCO2 POC ABG pO2 ABG pO2 ABG HCO3 ABG O2 Saturation ABG Base Excess ABG Hemoglobin Oxyhemoglobin Sodium Potassium Chloride Carbon Dioxide BUN Creatinine Glucose POC Glucose 109 H 114 H Lactic Acid Calcium Ionized Calcium Phosphorus Magnesium Iron TIBC Ferritin Total Bilirubin Direct Bilirubin AST ALT Alkaline Phosphatase Total Creatine Kinase CK-MB (CK-2) Troponin T C-Reactive Protein Serum Total Protein Total Protein Albumin Ebcsc-0-Vmhjwrnox Opzou-8-Zztpwulnv PEP Interpretation Triglycerides LDL Cholesterol Direct HDL Cholesterol Free T4 PTH Intact Urine WBC (Auto) Urine Creatinine Salicylates Acetaminophen Crossmatch 04/11/19 04/11/19 04/11/19 06:47 09:21 12:15 WBC RBC Hgb Hct MCV MCHC RDW Plt Count Lymph % (Auto) Ramsey % (Auto) Lymph # Ramsey # Eos # Seg Neutrophils % Seg Neuts % (Manual) Lymphocytes % (Manual) Monocytes % (Manual) Nucleated RBC % Seg Neutrophils # Seg Neutrophils # Man Lymphocytes # (Manual) Monocytes # (Manual) PT INR D-Dimer Heparin Anti-Xa Level POC ABG pH ABG pH POC ABG pCO2 POC ABG pO2 ABG pO2 ABG HCO3 ABG O2 Saturation ABG Base Excess ABG Hemoglobin Oxyhemoglobin Sodium Potassium 3.5 L Chloride Carbon Dioxide BUN 45 H Creatinine 6.0 H Glucose 113 H POC Glucose 106 H 109 H Lactic Acid Calcium Ionized Calcium Phosphorus Magnesium Iron TIBC Ferritin Total Bilirubin Direct Bilirubin AST ALT Alkaline Phosphatase Total Creatine Kinase CK-MB (CK-2) Troponin T C-Reactive Protein Serum Total Protein Total Protein Albumin Mkpbr-9-Etzujgntk Qudjz-6-Tandhtqsv PEP Interpretation Triglycerides LDL Cholesterol Direct HDL Cholesterol Free T4 PTH Intact Urine WBC (Auto) Urine Creatinine Salicylates Acetaminophen Crossmatch 04/11/19 04/12/19 04/12/19 18:42 12:13 23:52 WBC RBC Hgb Hct MCV MCHC RDW Plt Count Lymph % (Auto) Ramsey % (Auto) Lymph # Ramsey # Eos # Seg Neutrophils % Seg Neuts % (Manual) Lymphocytes % (Manual) Monocytes % (Manual) Nucleated RBC % Seg Neutrophils # Seg Neutrophils # Man Lymphocytes # (Manual) Monocytes # (Manual) PT INR D-Dimer Heparin Anti-Xa Level POC ABG pH ABG pH POC ABG pCO2 POC ABG pO2 ABG pO2 ABG HCO3 ABG O2 Saturation ABG Base Excess ABG Hemoglobin Oxyhemoglobin Sodium Potassium Chloride Carbon Dioxide BUN Creatinine Glucose POC Glucose 107 H 115 H 124 H Lactic Acid Calcium Ionized Calcium Phosphorus Magnesium Iron TIBC Ferritin Total Bilirubin Direct Bilirubin AST ALT Alkaline Phosphatase Total Creatine Kinase CK-MB (CK-2) Troponin T C-Reactive Protein Serum Total Protein Total Protein Albumin Thrcs-3-Ascsskqbd Npgkx-3-Okvkfdqpm PEP Interpretation Triglycerides LDL Cholesterol Direct HDL Cholesterol Free T4 PTH Intact Urine WBC (Auto) Urine Creatinine Salicylates Acetaminophen Crossmatch 04/13/19 04/13/19 04/13/19 05:00 05:00 05:47 WBC 11.7 H RBC 2.97 L Hgb 8.8 L Hct 27.3 L MCV MCHC RDW 16.1 H Plt Count Lymph % (Auto) 9.5 L Ramsey % (Auto) 9.9 H Lymph # 1.1 L Ramsey # 1.2 H Eos # Seg Neutrophils % 78.6 H Seg Neuts % (Manual) Lymphocytes % (Manual) Monocytes % (Manual) Nucleated RBC % Seg Neutrophils # 9.2 H Seg Neutrophils # Man Lymphocytes # (Manual) Monocytes # (Manual) PT INR D-Dimer Heparin Anti-Xa Level POC ABG pH ABG pH POC ABG pCO2 POC ABG pO2 ABG pO2 ABG HCO3 ABG O2 Saturation ABG Base Excess ABG Hemoglobin Oxyhemoglobin Sodium Potassium 3.5 L Chloride Carbon Dioxide BUN 42 H Creatinine 4.6 H Glucose 106 H POC Glucose 107 H Lactic Acid Calcium 10.6 H D Ionized Calcium Phosphorus 5.90 H Magnesium Iron TIBC Ferritin Total Bilirubin Direct Bilirubin AST ALT Alkaline Phosphatase Total Creatine Kinase CK-MB (CK-2) Troponin T C-Reactive Protein Serum Total Protein Total Protein 5.8 L Albumin 2.5 L Rsjjc-6-Snfqnahxg Idprf-2-Jpmfynfed PEP Interpretation Triglycerides LDL Cholesterol Direct HDL Cholesterol Free T4 PTH Intact Urine WBC (Auto) Urine Creatinine Salicylates Acetaminophen Crossmatch 04/13/19 04/14/19 04/14/19 17:32 00:00 03:55 WBC RBC Hgb Hct MCV MCHC RDW Plt Count Lymph % (Auto) Ramsey % (Auto) Lymph # Ramsey # Eos # Seg Neutrophils % Seg Neuts % (Manual) Lymphocytes % (Manual) Monocytes % (Manual) Nucleated RBC % Seg Neutrophils # Seg Neutrophils # Man Lymphocytes # (Manual) Monocytes # (Manual) PT INR D-Dimer Heparin Anti-Xa Level POC ABG pH ABG pH POC ABG pCO2 POC ABG pO2 ABG pO2 ABG HCO3 ABG O2 Saturation ABG Base Excess ABG Hemoglobin Oxyhemoglobin Sodium Potassium 3.0 L Chloride Carbon Dioxide BUN 30 H Creatinine 3.1 H Glucose POC Glucose 112 H 120 H Lactic Acid Calcium 10.8 H Ionized Calcium Phosphorus Magnesium Iron TIBC Ferritin Total Bilirubin Direct Bilirubin AST ALT Alkaline Phosphatase Total Creatine Kinase CK-MB (CK-2) Troponin T C-Reactive Protein Serum Total Protein Total Protein Albumin Gxdfb-0-Yrlwghgal Hlsie-5-Nqhebxvbv PEP Interpretation Triglycerides LDL Cholesterol Direct HDL Cholesterol Free T4 PTH Intact Urine WBC (Auto) Urine Creatinine Salicylates Acetaminophen Crossmatch 04/14/19 04/14/19 04/15/19 11:56 23:28 05:11 WBC 13.0 H RBC 2.93 L Hgb 8.6 L Hct 26.5 L MCV MCHC RDW 16.5 H Plt Count Lymph % (Auto) 12.2 L Ramsey % (Auto) 9.1 H Lymph # Ramsey # 1.2 H Eos # Seg Neutrophils % 77.6 H Seg Neuts % (Manual) Lymphocytes % (Manual) Monocytes % (Manual) Nucleated RBC % Seg Neutrophils # 10.1 H Seg Neutrophils # Man Lymphocytes # (Manual) Monocytes # (Manual) PT INR D-Dimer Heparin Anti-Xa Level POC ABG pH ABG pH POC ABG pCO2 POC ABG pO2 ABG pO2 ABG HCO3 ABG O2 Saturation ABG Base Excess ABG Hemoglobin Oxyhemoglobin Sodium Potassium Chloride Carbon Dioxide BUN Creatinine Glucose POC Glucose 109 H 112 H Lactic Acid Calcium Ionized Calcium Phosphorus Magnesium Iron TIBC Ferritin Total Bilirubin Direct Bilirubin AST ALT Alkaline Phosphatase Total Creatine Kinase CK-MB (CK-2) Troponin T C-Reactive Protein Serum Total Protein Total Protein Albumin Cjxxc-1-Hixushguz Qzkmd-7-Igpuqwhos PEP Interpretation Triglycerides LDL Cholesterol Direct HDL Cholesterol Free T4 PTH Intact Urine WBC (Auto) Urine Creatinine Salicylates Acetaminophen Crossmatch 04/15/19 04/15/19 04/15/19 05:11 05:31 18:03 WBC RBC Hgb Hct MCV MCHC RDW Plt Count Lymph % (Auto) Ramsey % (Auto) Lymph # Ramsey # Eos # Seg Neutrophils % Seg Neuts % (Manual) Lymphocytes % (Manual) Monocytes % (Manual) Nucleated RBC % Seg Neutrophils # Seg Neutrophils # Man Lymphocytes # (Manual) Monocytes # (Manual) PT INR D-Dimer Heparin Anti-Xa Level POC ABG pH ABG pH POC ABG pCO2 POC ABG pO2 ABG pO2 ABG HCO3 ABG O2 Saturation ABG Base Excess ABG Hemoglobin Oxyhemoglobin Sodium Potassium 3.2 L Chloride Carbon Dioxide BUN 44 H Creatinine 3.6 H Glucose 106 H POC Glucose 110 H 121 H Lactic Acid Calcium 12.0 H Ionized Calcium Phosphorus 5.00 H Magnesium Iron TIBC Ferritin Total Bilirubin Direct Bilirubin AST ALT Alkaline Phosphatase Total Creatine Kinase CK-MB (CK-2) Troponin T C-Reactive Protein Serum Total Protein Total Protein Albumin Ymdks-7-Cefvdhppj Jibua-0-Nnefkwwzh PEP Interpretation Triglycerides LDL Cholesterol Direct HDL Cholesterol Free T4 PTH Intact Urine WBC (Auto) Urine Creatinine Salicylates Acetaminophen Crossmatch 04/16/19 04/16/19 04/17/19 05:07 05:07 04:15 WBC 12.6 H RBC 3.12 L Hgb 9.0 L Hct 28.2 L MCV MCHC RDW 16.6 H Plt Count Lymph % (Auto) 10.3 L Ramsey % (Auto) 9.8 H Lymph # Ramsey # 1.2 H Eos # Seg Neutrophils % 78.2 H Seg Neuts % (Manual) Lymphocytes % (Manual) Monocytes % (Manual) Nucleated RBC % Seg Neutrophils # 9.9 H Seg Neutrophils # Man Lymphocytes # (Manual) Monocytes # (Manual) PT INR D-Dimer Heparin Anti-Xa Level POC ABG pH ABG pH POC ABG pCO2 POC ABG pO2 ABG pO2 ABG HCO3 ABG O2 Saturation ABG Base Excess ABG Hemoglobin Oxyhemoglobin Sodium 147 H 150 H Potassium 3.5 L 3.1 L Chloride Carbon Dioxide 32 H BUN 54 H 65 H Creatinine 3.8 H 4.0 H Glucose 102 H 107 H POC Glucose Lactic Acid Calcium 11.7 H 12.0 H Ionized Calcium Phosphorus 5.40 H Magnesium Iron TIBC Ferritin Total Bilirubin Direct Bilirubin AST ALT Alkaline Phosphatase Total Creatine Kinase CK-MB (CK-2) Troponin T C-Reactive Protein 7.10 H Serum Total Protein Total Protein Albumin Xuwad-7-Ktwjenfdr Gwgkv-4-Rnfvmprjo PEP Interpretation Triglycerides LDL Cholesterol Direct HDL Cholesterol Free T4 PTH Intact Urine WBC (Auto) Urine Creatinine Salicylates Acetaminophen Crossmatch 04/17/19 04/17/19 04/17/19 04:15 06:05 12:49 WBC 15.8 H RBC 3.32 L Hgb 9.5 L Hct 29.9 L MCV MCHC RDW 16.9 H Plt Count Lymph % (Auto) 12.6 L Ramsey % (Auto) 11.1 H Lymph # Ramsey # 1.7 H Eos # Seg Neutrophils % 74.7 H Seg Neuts % (Manual) Lymphocytes % (Manual) Monocytes % (Manual) Nucleated RBC % Seg Neutrophils # 11.8 H Seg Neutrophils # Man Lymphocytes # (Manual) Monocytes # (Manual) PT INR D-Dimer Heparin Anti-Xa Level POC ABG pH ABG pH POC ABG pCO2 POC ABG pO2 ABG pO2 ABG HCO3 ABG O2 Saturation ABG Base Excess ABG Hemoglobin Oxyhemoglobin Sodium Potassium Chloride Carbon Dioxide BUN Creatinine Glucose POC Glucose 111 H 108 H Lactic Acid Calcium Ionized Calcium Phosphorus Magnesium Iron TIBC Ferritin Total Bilirubin Direct Bilirubin AST ALT Alkaline Phosphatase Total Creatine Kinase CK-MB (CK-2) Troponin T C-Reactive Protein Serum Total Protein Total Protein Albumin Xwyqs-7-Hivrxxbsf Potlm-8-Xwnfusico PEP Interpretation Triglycerides LDL Cholesterol Direct HDL Cholesterol Free T4 PTH Intact Urine WBC (Auto) Urine Creatinine Salicylates Acetaminophen Crossmatch 04/18/19 04/18/19 04/18/19 00:23 04:41 04:41 WBC 19.4 H RBC 3.03 L Hgb 8.6 L Hct 27.5 L MCV MCHC 31 L RDW 16.9 H Plt Count Lymph % (Auto) Ramsey % (Auto) Lymph # Ramsey # Eos # Seg Neutrophils % Seg Neuts % (Manual) Lymphocytes % (Manual) Monocytes % (Manual) Nucleated RBC % Seg Neutrophils # Seg Neutrophils # Man Lymphocytes # (Manual) Monocytes # (Manual) PT INR D-Dimer Heparin Anti-Xa Level POC ABG pH ABG pH POC ABG pCO2 POC ABG pO2 ABG pO2 ABG HCO3 ABG O2 Saturation ABG Base Excess ABG Hemoglobin Oxyhemoglobin Sodium 152 H Potassium 3.0 L Chloride Carbon Dioxide BUN 80 H Creatinine 4.3 H Glucose 103 H POC Glucose 115 H Lactic Acid Calcium 11.4 H Ionized Calcium Phosphorus Magnesium Iron TIBC Ferritin Total Bilirubin Direct Bilirubin AST ALT Alkaline Phosphatase Total Creatine Kinase CK-MB (CK-2) Troponin T C-Reactive Protein Serum Total Protein Total Protein Albumin Wnuhz-8-Bjcpjqity Gjvjb-9-Xamkhgmtp PEP Interpretation Triglycerides LDL Cholesterol Direct HDL Cholesterol Free T4 PTH Intact Urine WBC (Auto) Urine Creatinine Salicylates Acetaminophen Crossmatch 04/18/19 04/18/19 04/18/19 06:17 12:16 18:10 WBC RBC Hgb Hct MCV MCHC RDW Plt Count Lymph % (Auto) Ramsey % (Auto) Lymph # Ramsey # Eos # Seg Neutrophils % Seg Neuts % (Manual) Lymphocytes % (Manual) Monocytes % (Manual) Nucleated RBC % Seg Neutrophils # Seg Neutrophils # Man Lymphocytes # (Manual) Monocytes # (Manual) PT INR D-Dimer Heparin Anti-Xa Level POC ABG pH ABG pH POC ABG pCO2 POC ABG pO2 ABG pO2 ABG HCO3 ABG O2 Saturation ABG Base Excess ABG Hemoglobin Oxyhemoglobin Sodium Potassium Chloride Carbon Dioxide BUN Creatinine Glucose POC Glucose 124 H 119 H 111 H Lactic Acid Calcium Ionized Calcium Phosphorus Magnesium Iron TIBC Ferritin Total Bilirubin Direct Bilirubin AST ALT Alkaline Phosphatase Total Creatine Kinase CK-MB (CK-2) Troponin T C-Reactive Protein Serum Total Protein Total Protein Albumin Afstt-4-Objxnwghs Sjyit-0-Blypafqtl PEP Interpretation Triglycerides LDL Cholesterol Direct HDL Cholesterol Free T4 PTH Intact Urine WBC (Auto) Urine Creatinine Salicylates Acetaminophen Crossmatch 04/19/19 04/19/19 04/20/19 03:49 05:27 09:09 WBC RBC Hgb Hct MCV MCHC RDW Plt Count Lymph % (Auto) Ramsey % (Auto) Lymph # Ramsey # Eos # Seg Neutrophils % Seg Neuts % (Manual) Lymphocytes % (Manual) Monocytes % (Manual) Nucleated RBC % Seg Neutrophils # Seg Neutrophils # Man Lymphocytes # (Manual) Monocytes # (Manual) PT INR D-Dimer Heparin Anti-Xa Level POC ABG pH ABG pH POC ABG pCO2 POC ABG pO2 ABG pO2 ABG HCO3 ABG O2 Saturation ABG Base Excess ABG Hemoglobin Oxyhemoglobin Sodium 147 H 150 H Potassium 3.3 L Chloride 108.9 H Carbon Dioxide BUN 45 H 70 H Creatinine 2.9 H 4.1 H Glucose 105 H POC Glucose 124 H Lactic Acid Calcium 10.6 H 11.6 H Ionized Calcium Phosphorus Magnesium Iron TIBC Ferritin Total Bilirubin Direct Bilirubin AST ALT Alkaline Phosphatase Total Creatine Kinase CK-MB (CK-2) Troponin T C-Reactive Protein Serum Total Protein Total Protein Albumin Ugxcu-8-Jliikhtta Pemgh-4-Nhzhrxmnb PEP Interpretation Triglycerides LDL Cholesterol Direct HDL Cholesterol Free T4 PTH Intact Urine WBC (Auto) Urine Creatinine Salicylates Acetaminophen Crossmatch 04/20/19 04/20/19 04/21/19 12:29 18:45 01:34 WBC RBC Hgb Hct MCV MCHC RDW Plt Count Lymph % (Auto) Ramsey % (Auto) Lymph # Ramsey # Eos # Seg Neutrophils % Seg Neuts % (Manual) Lymphocytes % (Manual) Monocytes % (Manual) Nucleated RBC % Seg Neutrophils # Seg Neutrophils # Man Lymphocytes # (Manual) Monocytes # (Manual) PT INR D-Dimer Heparin Anti-Xa Level POC ABG pH ABG pH POC ABG pCO2 POC ABG pO2 ABG pO2 ABG HCO3 ABG O2 Saturation ABG Base Excess ABG Hemoglobin Oxyhemoglobin Sodium Potassium Chloride Carbon Dioxide BUN 40 H Creatinine 2.6 H Glucose 104 H POC Glucose 131 H 134 H Lactic Acid Calcium 11.0 H Ionized Calcium Phosphorus Magnesium Iron TIBC Ferritin Total Bilirubin Direct Bilirubin AST ALT Alkaline Phosphatase Total Creatine Kinase CK-MB (CK-2) Troponin T C-Reactive Protein Serum Total Protein Total Protein Albumin Yrtpx-3-Tflcsfzrh Cvysa-8-Ahaghxthm PEP Interpretation Triglycerides LDL Cholesterol Direct HDL Cholesterol Free T4 PTH Intact Urine WBC (Auto) Urine Creatinine Salicylates Acetaminophen Crossmatch 04/21/19 04/21/19 04/22/19 04:22 04:22 04:24 WBC 14.2 H 14.3 H RBC 3.02 L 3.57 L Hgb 8.7 L 10.1 L Hct 27.2 L 32.1 L MCV MCHC RDW 16.7 H 17.2 H Plt Count Lymph % (Auto) Ramsey % (Auto) Lymph # Ramsey # Eos # Seg Neutrophils % Seg Neuts % (Manual) Lymphocytes % (Manual) Monocytes % (Manual) Nucleated RBC % Seg Neutrophils # Seg Neutrophils # Man Lymphocytes # (Manual) Monocytes # (Manual) PT INR D-Dimer Heparin Anti-Xa Level POC ABG pH ABG pH POC ABG pCO2 POC ABG pO2 ABG pO2 ABG HCO3 ABG O2 Saturation ABG Base Excess ABG Hemoglobin Oxyhemoglobin Sodium Potassium Chloride Carbon Dioxide BUN Creatinine Glucose POC Glucose Lactic Acid Calcium Ionized Calcium Phosphorus Magnesium Iron TIBC Ferritin Total Bilirubin Direct Bilirubin AST ALT Alkaline Phosphatase Total Creatine Kinase CK-MB (CK-2) Troponin T C-Reactive Protein Serum Total Protein 5.7 L Total Protein Albumin 2.3 L Yzelo-1-Zihxgddnm 0.5 H Gnnqi-1-Tnfdtbeqb 1.0 H PEP Interpretation see below H Triglycerides LDL Cholesterol Direct HDL Cholesterol Free T4 PTH Intact Urine WBC (Auto) Urine Creatinine Salicylates Acetaminophen Crossmatch 04/22/19 04/22/19 04/22/19 04:24 06:37 11:57 WBC RBC Hgb Hct MCV MCHC RDW Plt Count Lymph % (Auto) Ramsey % (Auto) Lymph # Ramsey # Eos # Seg Neutrophils % Seg Neuts % (Manual) Lymphocytes % (Manual) Monocytes % (Manual) Nucleated RBC % Seg Neutrophils # Seg Neutrophils # Man Lymphocytes # (Manual) Monocytes # (Manual) PT INR D-Dimer Heparin Anti-Xa Level POC ABG pH ABG pH POC ABG pCO2 POC ABG pO2 ABG pO2 ABG HCO3 ABG O2 Saturation ABG Base Excess ABG Hemoglobin Oxyhemoglobin Sodium Potassium Chloride Carbon Dioxide BUN 54 H Creatinine 3.5 H Glucose POC Glucose 113 H 110 H Lactic Acid Calcium 11.4 H Ionized Calcium Phosphorus Magnesium Iron TIBC Ferritin Total Bilirubin Direct Bilirubin AST ALT Alkaline Phosphatase Total Creatine Kinase CK-MB (CK-2) Troponin T C-Reactive Protein Serum Total Protein Total Protein Albumin Esias-5-Igmwqswlp Clofc-2-Sjwjyixad PEP Interpretation Triglycerides LDL Cholesterol Direct HDL Cholesterol Free T4 PTH Intact Urine WBC (Auto) Urine Creatinine Salicylates Acetaminophen Crossmatch 04/22/19 04/23/19 04/23/19 18:33 04:06 04:06 WBC 16.1 H RBC 3.36 L Hgb 9.8 L Hct 30.8 L MCV MCHC RDW 17.7 H Plt Count Lymph % (Auto) 9.9 L Ramsey % (Auto) Lymph # Ramsey # Eos # Seg Neutrophils % 84.2 H Seg Neuts % (Manual) Lymphocytes % (Manual) Monocytes % (Manual) Nucleated RBC % Seg Neutrophils # 13.6 H Seg Neutrophils # Man Lymphocytes # (Manual) Monocytes # (Manual) PT INR D-Dimer Heparin Anti-Xa Level POC ABG pH ABG pH POC ABG pCO2 POC ABG pO2 ABG pO2 ABG HCO3 ABG O2 Saturation ABG Base Excess ABG Hemoglobin Oxyhemoglobin Sodium Potassium Chloride Carbon Dioxide BUN 59 H Creatinine 3.8 H Glucose POC Glucose 120 H Lactic Acid Calcium 12.3 H* Ionized Calcium Phosphorus 5.70 H Magnesium Iron TIBC Ferritin Total Bilirubin Direct Bilirubin AST ALT Alkaline Phosphatase Total Creatine Kinase CK-MB (CK-2) Troponin T C-Reactive Protein Serum Total Protein Total Protein Albumin 3.2 L Wdajr-9-Ykzbjundj Eeygj-9-Zwwzrlkvh PEP Interpretation Triglycerides LDL Cholesterol Direct HDL Cholesterol Free T4 PTH Intact Urine WBC (Auto) Urine Creatinine Salicylates Acetaminophen Crossmatch 04/23/19 04/24/19 04/24/19 18:06 04:12 04:12 WBC 18.0 H RBC 3.46 L Hgb 9.8 L Hct 31.2 L MCV MCHC 31 L RDW 17.5 H Plt Count Lymph % (Auto) 11.1 L Ramsey % (Auto) Lymph # Ramsey # Eos # Seg Neutrophils % 81.9 H Seg Neuts % (Manual) Lymphocytes % (Manual) Monocytes % (Manual) Nucleated RBC % Seg Neutrophils # 14.7 H Seg Neutrophils # Man Lymphocytes # (Manual) Monocytes # (Manual) PT INR D-Dimer Heparin Anti-Xa Level POC ABG pH ABG pH POC ABG pCO2 POC ABG pO2 ABG pO2 ABG HCO3 ABG O2 Saturation ABG Base Excess ABG Hemoglobin Oxyhemoglobin Sodium Potassium Chloride Carbon Dioxide BUN 56 H Creatinine 3.6 H Glucose POC Glucose 124 H Lactic Acid Calcium 12.6 H* Ionized Calcium Phosphorus Magnesium Iron TIBC Ferritin Total Bilirubin Direct Bilirubin AST ALT Alkaline Phosphatase Total Creatine Kinase CK-MB (CK-2) Troponin T C-Reactive Protein Serum Total Protein Total Protein Albumin 3.2 L Iybyn-7-Groxniskw Fjluo-4-Mqgxfwipv PEP Interpretation Triglycerides LDL Cholesterol Direct HDL Cholesterol Free T4 PTH Intact Urine WBC (Auto) Urine Creatinine Salicylates Acetaminophen Crossmatch 04/24/19 04/24/19 04/25/19 06:21 11:47 05:58 WBC 18.0 H RBC 2.98 L Hgb 8.3 L Hct 26.5 L MCV MCHC 31 L RDW 17.9 H Plt Count Lymph % (Auto) 10.1 L Ramsey % (Auto) Lymph # Ramsey # 0.9 H Eos # Seg Neutrophils % 82.8 H Seg Neuts % (Manual) Lymphocytes % (Manual) Monocytes % (Manual) Nucleated RBC % Seg Neutrophils # 15.0 H Seg Neutrophils # Man Lymphocytes # (Manual) Monocytes # (Manual) PT INR D-Dimer Heparin Anti-Xa Level POC ABG pH ABG pH POC ABG pCO2 POC ABG pO2 ABG pO2 ABG HCO3 ABG O2 Saturation ABG Base Excess ABG Hemoglobin Oxyhemoglobin Sodium Potassium Chloride Carbon Dioxide BUN Creatinine Glucose POC Glucose 132 H 106 H Lactic Acid Calcium Ionized Calcium Phosphorus Magnesium Iron TIBC Ferritin Total Bilirubin Direct Bilirubin AST ALT Alkaline Phosphatase Total Creatine Kinase CK-MB (CK-2) Troponin T C-Reactive Protein Serum Total Protein Total Protein Albumin Jusfn-5-Pizlbpzlq Lxozz-0-Atcmophtl PEP Interpretation Triglycerides LDL Cholesterol Direct HDL Cholesterol Free T4 PTH Intact Urine WBC (Auto) Urine Creatinine Salicylates Acetaminophen Crossmatch 04/25/19 04/26/19 04/26/19 05:58 05:57 06:08 WBC RBC Hgb Hct MCV MCHC RDW Plt Count Lymph % (Auto) Ramsey % (Auto) Lymph # Ramsey # Eos # Seg Neutrophils % Seg Neuts % (Manual) Lymphocytes % (Manual) Monocytes % (Manual) Nucleated RBC % Seg Neutrophils # Seg Neutrophils # Man Lymphocytes # (Manual) Monocytes # (Manual) PT INR D-Dimer Heparin Anti-Xa Level POC ABG pH ABG pH POC ABG pCO2 POC ABG pO2 ABG pO2 ABG HCO3 ABG O2 Saturation ABG Base Excess ABG Hemoglobin Oxyhemoglobin Sodium Potassium 3.2 L Chloride Carbon Dioxide BUN 52 H 48 H Creatinine 3.2 H 2.9 H Glucose 108 H 112 H POC Glucose 109 H Lactic Acid Calcium 11.4 H 12.5 H* Ionized Calcium Phosphorus 5.90 H Magnesium Iron TIBC Ferritin Total Bilirubin Direct Bilirubin AST ALT Alkaline Phosphatase Total Creatine Kinase CK-MB (CK-2) Troponin T C-Reactive Protein Serum Total Protein Total Protein Albumin 3.0 L Lbxod-4-Qapbmxppa Rbzes-9-Rahtblpfw PEP Interpretation Triglycerides LDL Cholesterol Direct HDL Cholesterol Free T4 PTH Intact Urine WBC (Auto) Urine Creatinine Salicylates Acetaminophen Crossmatch 04/26/19 04/26/19 04/27/19 07:22 13:39 05:05 WBC 11.9 H RBC 3.01 L Hgb 8.6 L Hct 26.3 L MCV MCHC RDW 17.6 H Plt Count Lymph % (Auto) 11.9 L Ramsey % (Auto) Lymph # Ramsey # Eos # Seg Neutrophils % 78.3 H Seg Neuts % (Manual) Lymphocytes % (Manual) Monocytes % (Manual) Nucleated RBC % Seg Neutrophils # 9.4 H Seg Neutrophils # Man Lymphocytes # (Manual) Monocytes # (Manual) PT INR D-Dimer Heparin Anti-Xa Level POC ABG pH ABG pH POC ABG pCO2 POC ABG pO2 ABG pO2 ABG HCO3 ABG O2 Saturation ABG Base Excess ABG Hemoglobin Oxyhemoglobin Sodium Potassium Chloride Carbon Dioxide BUN 46 H Creatinine 2.8 H Glucose POC Glucose Lactic Acid Calcium > 13.0 H* 12.2 H* Ionized Calcium Phosphorus Magnesium Iron TIBC Ferritin Total Bilirubin Direct Bilirubin AST ALT Alkaline Phosphatase Total Creatine Kinase CK-MB (CK-2) Troponin T C-Reactive Protein Serum Total Protein Total Protein Albumin Izgeo-5-Zaqoqfzry Fefou-4-Gadijdfep PEP Interpretation Triglycerides LDL Cholesterol Direct HDL Cholesterol Free T4 PTH Intact Urine WBC (Auto) Urine Creatinine Salicylates Acetaminophen Crossmatch 04/27/19 04/28/19 04/29/19 05:05 05:17 14:14 WBC RBC Hgb Hct MCV MCHC RDW Plt Count Lymph % (Auto) Ramsey % (Auto) Lymph # Ramsey # Eos # Seg Neutrophils % Seg Neuts % (Manual) Lymphocytes % (Manual) Monocytes % (Manual) Nucleated RBC % Seg Neutrophils # Seg Neutrophils # Man Lymphocytes # (Manual) Monocytes # (Manual) PT INR D-Dimer Heparin Anti-Xa Level POC ABG pH ABG pH POC ABG pCO2 POC ABG pO2 ABG pO2 ABG HCO3 ABG O2 Saturation ABG Base Excess ABG Hemoglobin Oxyhemoglobin Sodium 136 L Potassium 3.2 L 3.4 L Chloride Carbon Dioxide BUN 40 H 34 H 33 H Creatinine 2.5 H 2.0 H 1.9 H Glucose 113 H 107 H POC Glucose Lactic Acid Calcium 12.3 H* 12.1 H* 11.5 H Ionized Calcium Phosphorus Magnesium Iron TIBC Ferritin Total Bilirubin Direct Bilirubin AST ALT Alkaline Phosphatase Total Creatine Kinase CK-MB (CK-2) Troponin T C-Reactive Protein Serum Total Protein Total Protein 6.2 L Albumin 2.8 L Pqmvz-0-Ivizgxmba Imkqg-9-Pnpqjyhmf PEP Interpretation Triglycerides LDL Cholesterol Direct HDL Cholesterol Free T4 PTH Intact Urine WBC (Auto) Urine Creatinine Salicylates Acetaminophen Crossmatch 04/29/19 04/29/19 04/30/19 14:14 14:14 06:47 WBC RBC Hgb Hct MCV MCHC RDW Plt Count Lymph % (Auto) Ramsey % (Auto) Lymph # Ramsey # Eos # Seg Neutrophils % Seg Neuts % (Manual) Lymphocytes % (Manual) Monocytes % (Manual) Nucleated RBC % Seg Neutrophils # Seg Neutrophils # Man Lymphocytes # (Manual) Monocytes # (Manual) PT INR D-Dimer Heparin Anti-Xa Level POC ABG pH ABG pH POC ABG pCO2 POC ABG pO2 ABG pO2 ABG HCO3 ABG O2 Saturation ABG Base Excess ABG Hemoglobin Oxyhemoglobin Sodium Potassium 3.2 L Chloride Carbon Dioxide 21 L BUN 26 H Creatinine 1.8 H Glucose POC Glucose Lactic Acid Calcium 10.8 H Ionized Calcium 7.2 H* Phosphorus Magnesium Iron TIBC Ferritin Total Bilirubin Direct Bilirubin AST ALT Alkaline Phosphatase Total Creatine Kinase CK-MB (CK-2) Troponin T C-Reactive Protein Serum Total Protein Total Protein Albumin Ngftf-4-Rkgjumdgk Fvcds-7-Aevtuspqw PEP Interpretation Triglycerides LDL Cholesterol Direct HDL Cholesterol Free T4 PTH Intact 8.83 L Urine WBC (Auto) Urine Creatinine Salicylates Acetaminophen Crossmatch 04/30/19 05/01/19 05/01/19 12:17 06:52 06:52 WBC 15.4 H RBC 3.01 L Hgb 8.4 L Hct 26.2 L MCV MCHC RDW 17.0 H Plt Count Lymph % (Auto) 8.4 L Ramsey % (Auto) 8.9 H Lymph # Ramsey # 1.4 H Eos # 0.5 H Seg Neutrophils % 78.7 H Seg Neuts % (Manual) Lymphocytes % (Manual) Monocytes % (Manual) Nucleated RBC % Seg Neutrophils # 12.1 H Seg Neutrophils # Man Lymphocytes # (Manual) Monocytes # (Manual) PT INR D-Dimer Heparin Anti-Xa Level POC ABG pH ABG pH POC ABG pCO2 POC ABG pO2 ABG pO2 ABG HCO3 ABG O2 Saturation ABG Base Excess ABG Hemoglobin Oxyhemoglobin Sodium Potassium 3.0 L Chloride Carbon Dioxide BUN 22 H Creatinine Glucose POC Glucose 106 H Lactic Acid Calcium 11.2 H Ionized Calcium Phosphorus Magnesium Iron TIBC Ferritin Total Bilirubin Direct Bilirubin AST ALT Alkaline Phosphatase Total Creatine Kinase CK-MB (CK-2) Troponin T C-Reactive Protein Serum Total Protein Total Protein Albumin 3.0 L Msgvm-9-Rkmszfuep Fgury-7-Wrffhcivn PEP Interpretation Triglycerides LDL Cholesterol Direct HDL Cholesterol Free T4 PTH Intact Urine WBC (Auto) Urine Creatinine Salicylates Acetaminophen Crossmatch 05/01/19 05/02/19 05/02/19 18:40 05:32 05:57 WBC 14.2 H RBC 2.96 L Hgb 8.3 L Hct 26.0 L MCV MCHC RDW 16.8 H Plt Count Lymph % (Auto) Ramsey % (Auto) Lymph # Ramsey # Eos # Seg Neutrophils % Seg Neuts % (Manual) Lymphocytes % (Manual) Monocytes % (Manual) Nucleated RBC % Seg Neutrophils # Seg Neutrophils # Man Lymphocytes # (Manual) Monocytes # (Manual) PT INR D-Dimer Heparin Anti-Xa Level POC ABG pH ABG pH POC ABG pCO2 POC ABG pO2 ABG pO2 ABG HCO3 ABG O2 Saturation ABG Base Excess ABG Hemoglobin Oxyhemoglobin Sodium Potassium Chloride Carbon Dioxide BUN Creatinine Glucose POC Glucose 169 H 109 H Lactic Acid Calcium Ionized Calcium Phosphorus Magnesium Iron TIBC Ferritin Total Bilirubin Direct Bilirubin AST ALT Alkaline Phosphatase Total Creatine Kinase CK-MB (CK-2) Troponin T C-Reactive Protein Serum Total Protein Total Protein Albumin Nqtky-9-Ekmnwlogw Imzkx-5-Zkjtfktgd PEP Interpretation Triglycerides LDL Cholesterol Direct HDL Cholesterol Free T4 PTH Intact Urine WBC (Auto) Urine Creatinine Salicylates Acetaminophen Crossmatch 05/02/19 05/02/19 05:57 11:43 WBC RBC Hgb Hct MCV MCHC RDW Plt Count Lymph % (Auto) Ramsey % (Auto) Lymph # Ramsey # Eos # Seg Neutrophils % Seg Neuts % (Manual) Lymphocytes % (Manual) Monocytes % (Manual) Nucleated RBC % Seg Neutrophils # Seg Neutrophils # Man Lymphocytes # (Manual) Monocytes # (Manual) PT INR D-Dimer Heparin Anti-Xa Level POC ABG pH ABG pH POC ABG pCO2 POC ABG pO2 ABG pO2 ABG HCO3 ABG O2 Saturation ABG Base Excess ABG Hemoglobin Oxyhemoglobin Sodium 136 L Potassium 3.5 L Chloride Carbon Dioxide BUN 21 H Creatinine Glucose POC Glucose 108 H Lactic Acid Calcium 11.1 H Ionized Calcium Phosphorus Magnesium Iron TIBC Ferritin Total Bilirubin Direct Bilirubin AST ALT Alkaline Phosphatase Total Creatine Kinase CK-MB (CK-2) Troponin T C-Reactive Protein Serum Total Protein Total Protein Albumin Zdnbr-4-Oirqyutpj Snlui-1-Abqxznxgm PEP Interpretation Triglycerides LDL Cholesterol Direct HDL Cholesterol Free T4 PTH Intact Urine WBC (Auto) Urine Creatinine Salicylates Acetaminophen Crossmatch Allied health notes reviewed: nursing
--- NOTE | 2019-05-02 18:10 | Progress Note ---
Assessment and Plan Assessment and plan: Patient is a 43-year-old man with history of GERD, obesity and mental illness, who presented to [facility] ED on 03/16/2019 with altered mental status. He is visiting from [place] and was brought in by his friend. As per records per family he has been homeless [address] [place]. When he came to the ER, he was unable to speak or follow commands, in the ER he was found to have SVT with heart rate in the 250s. The patient was shocked and medicated. Also was confused, and had trouble protecting his airway; therefore, he was then intubated. He has had a prolonged hospital course. During this hospital course, he was found to have sepsis with septic shock, acute resp failure, rhabdomyolysis, RUBEN, and multisystem organ failure, toxic metabolic encephalopathy. He was started on hemodialysis, now off since 04/20/19. He is much improved * Initial rhythm appeared to be SVT * Per friend patient complaining of feeling ill and has some left eye discharge, cold, clammy and diaphrietic by the time arrived to the hospital. Also mentions a possibility of a right axilla abscess. The and went to stay with his girlfriend the last 2 days and this morning when he saw the patient he was ill-appearing but sleeping. * Currently on 4 pressors * Start on Elizabeth culture including coverage for possible Meningitis CHEST 1 VIEW . IMPRESSION: 1. Endotracheal tube in good position. 2. Nasogastric tube doubled back on itself at the level of the salina with the tip not seen. The tube will need to be removed/reposition. CT of the chest, abdomen and pelvis without contrast . IMPRESSION: 1. Parenchymal disease in both lower lobes posteromedially may be related to aspiration pneumonia. 2. Moderately dilated small bowel bowel loops in the mid to upper abdomen anteriorly with mild associated bowel wall thickening. Localized enteritis and small bowel ischemia should be considered. CT head/brain wo contrast. IMPRESSION: 1. Some component of diffuse cerebral edema cannot be excluded. However, this finding may be artifactual secondary to patient positioning. Close follow-up is recommended. No definitive signs of herniation or large territorial infarct at this time. 2. Otherwise, no focal mass, hemorrhage, hydrocephalus, or large infarct seen. * Goal of care * Continue aggressive PT/OT * Woundcare * Encourage Incentive spirometer use * awaiting placement Acute hypoxic respiratory failure. Was intubated, now extubated. Now on Room air. Continue BiPAP as clinically indicated. Right upper ext DVT: Unfortunately patient with clot adherent ulcer on EGD, Unable to irrigate out. H/H relatively stable and plt improved. Will recommend e levating upper ext. SVT with Polymorphic Vtach/Atrial fibrillation. Continue Metoprolol. Cardiology following. No systemic AC regarding AFib in setting of anemia, thrombocytopenia, GI bleed. Acute blood loss anemia. Patient with GI bleed secondary to peptic ulcer disease. EGD completed per GI. Continue PRBCs as needed. GI bleed/peptic ulcer disease. Continue PPI. Transfuse PRBCs as needed. Sepsis/septic shock. Completed Antoibiotics Right Axillary cellulitis/Suspect Aspiration pneumonia/Acute Cystitis: Antibiotics stopped. Fever, recurrent- Improved ID following Severe Metabolic Acidosis- Resolved Hypercalcemia: Slight improvement. 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 Elevated LFTs improved. Viral hepatitis panel negative Acute Kidney Failure secondary to ATN ANURIC. Patient off hemodialysis. Patient was started on hemodialysis on 03/18/19 due to worsening metabolic acidosis and hyperkalemia. Last dialysis on 04/20. Baseline renal function is unknown. CT abdomen was negative for obstructive nephropathy. Avoid nephrotoxic agents. Continue hemodialysis per nephrology. Toxic metabolic encephalopathy. Brain MRI showed no acute intracranial abnormality, mild nonspecific chronic white matter changes, fluid throughout the sinuses and mastoid air cells. Swelling both upper ext L>R Doppler US : no DVT LUE Repeat doppler Continue wound care Patient recieved fluids, will give calcium Left AC wound- Dressing in place, wound care following and proscribing management Hypokalemia. Corrected. Replete potassium as needed. Hypernatremia. Follow-up BMP, Nephrology following Now resolved Thrombocytopenia, Presume DIC. Etiology likely secondary to sepsis. Resolved. Rhabdomyolysis. CK normalized. Full code status Continue aggressive PT. Pysch input is noted Awaiting placement History Interval history: Feels better no more fever Hospitalist Physical - Physical exam Narrative exam: Gen: Not in acute distress, lying in bed, morbidly obese HEENT: Normocephalic, atraumatic, NG tube Neck: supple, no JVD Heart: S1 and S2 irreg, no murmurs, rubs or gallop Lungs: Clear to auscultation, no rhonchi, no wheeze Abd: soft, non tender, non distended, normal BS, Ext: bilateral upper ext edema, L>R, no clubbing, no cyanosis, dressing over left elbow,eschar anterior left elbow Neuro: Awake, alert,oriented, moves all ext - Constitutional Vitals: Temp Pulse Resp BP Pulse Ox 98.3 F 88 24 109/67 91 05/02/19 12:10 05/02/19 12:10 05/02/19 12:10 05/02/19 12:10 05/02/19 12:10 General appearance: Present: obese Results - Labs CBC & Chem 7: 05/02/19 05:57 05/02/19 05:57 Labs: Laboratory Last Values WBC 14.2 K/mm3 (4.5-11.0) H 05/02/19 05:57 RBC 2.96 M/mm3 (3.65-5.03) L 05/02/19 05:57 Hgb 8.3 gm/dl (11.8-15.2) L 05/02/19 05:57 Hct 26.0 % (35.5-45.6) L 05/02/19 05:57 MCV 88 fl (84-94) 05/02/19 05:57 MCH 28 pg (28-32) 05/02/19 05:57 MCHC 32 % (32-34) 05/02/19 05:57 RDW 16.8 % (13.2-15.2) H 05/02/19 05:57 Plt Count 300 K/mm3 (140-440) 05/02/19 05:57 Lymph % (Auto) 8.4 % (13.4-35.0) L 05/01/19 06:52 [place] % (Auto) 8.9 % (0.0-7.3) H 05/01/19 06:52 Eos % (Auto) 3.4 % (0.0-4.3) 05/01/19 06:52 Baso % (Auto) 0.6 % (0.0-1.8) 05/01/19 06:52 Lymph # 1.3 K/mm3 (1.2-5.4) 05/01/19 06:52 [place] # 1.4 K/mm3 (0.0-0.8) H 05/01/19 06:52 Eos # 0.5 K/mm3 (0.0-0.4) H 05/01/19 06:52 Baso # 0.1 K/mm3 (0.0-0.1) 05/01/19 06:52 Add Manual Diff Complete 04/11/19 04:16 Total Counted 100 04/11/19 04:16 Seg Neutrophils % 78.7 % (40.0-70.0) H 05/01/19 06:52 Seg Neuts % (Manual) 71.0 % (40.0-70.0) H 04/11/19 04:16 Band Neutrophils % 1.0 % 04/11/19 04:16 Lymphocytes % (Manual) 17.0 % (13.4-35.0) 04/11/19 04:16 Reactive Lymphs % (Man) 0 % 04/11/19 04:16 Monocytes % (Manual) 8.0 % (0.0-7.3) H 04/11/19 04:16 Eosinophils % (Manual) 2.0 % (0.0-4.3) 04/11/19 04:16 Basophils % (Manual) 1.0 % (0.0-1.8) 04/11/19 04:16 Metamyelocytes % 0 % 04/11/19 04:16 Myelocytes % 0 % 04/11/19 04:16 Promyelocytes % 0 % 04/11/19 04:16 Blast Cells % 0 % 04/11/19 04:16 Nucleated RBC % Not Reportable 04/11/19 04:16 Seg Neutrophils # 12.1 K/mm3 (1.8-7.7) H 05/01/19 06:52 Seg Neutrophils # Man 8.2 K/mm3 (1.8-7.7) H 04/11/19 04:16 Band Neutrophils # 0.1 K/mm3 04/11/19 04:16 Lymphocytes # (Manual) 2.0 K/mm3 (1.2-5.4) 04/11/19 04:16 Abs React Lymphs (Man) 0.0 K/mm3 04/11/19 04:16 Monocytes # (Manual) 0.9 K/mm3 (0.0-0.8) H 04/11/19 04:16 Eosinophils # (Manual) 0.2 K/mm3 (0.0-0.4) 04/11/19 04:16 Basophils # (Manual) 0.1 K/mm3 (0.0-0.1) 04/11/19 04:16 Metamyelocytes # 0.0 K/mm3 04/11/19 04:16 Myelocytes # 0.0 K/mm3 04/11/19 04:16 Promyelocytes # 0.0 K/mm3 04/11/19 04:16 Blast Cells # 0.0 K/mm3 04/11/19 04:16 WBC Morphology Not Reportable 04/11/19 04:16 Hypersegmented Neuts Not Reportable 04/11/19 04:16 Hyposegmented Neuts Not Reportable 04/11/19 04:16 Hypogranular Neuts Not Reportable 04/11/19 04:16 Smudge Cells Not Reportable 04/11/19 04:16 Toxic Granulation Not Reportable 04/11/19 04:16 Toxic Vacuolation Not Reportable 04/11/19 04:16 Dohle Bodies Not Reportable 04/11/19 04:16 Pelger-Huet Anomaly Not Reportable 04/11/19 04:16 Joyce Rods Not Reportable 04/11/19 04:16 Platelet Estimate Consistent w auto 04/11/19 04:16 Clumped Platelets Not Reportable 04/11/19 04:16 Plt Clumps, EDTA Not Reportable 04/11/19 04:16 Large Platelets Not Reportable 04/11/19 04:16 Giant Platelets Not Reportable 04/11/19 04:16 Platelet Satelliting Not Reportable 04/11/19 04:16 Plt Morphology Comment Not Reportable 04/11/19 04:16 RBC Morphology Not Reportable 04/11/19 04:16 Dimorphic RBCs Not Reportable 04/11/19 04:16 Polychromasia Not Reportable 04/11/19 04:16 Hypochromasia Not Reportable 04/11/19 04:16 Poikilocytosis Not Reportable 04/11/19 04:16 Anisocytosis Rare 04/11/19 04:16 Microcytosis Rare 04/11/19 04:16 Macrocytosis Not Reportable 04/11/19 04:16 Spherocytes Not Reportable 04/11/19 04:16 Pappenheimer Bodies Not Reportable 04/11/19 04:16 Sickle Cells Not Reportable 04/11/19 04:16 Target Cells Not Reportable 04/11/19 04:16 Tear Drop Cells Not Reportable 04/11/19 04:16 Ovalocytes Not Reportable 04/11/19 04:16 Stomatocytes Few 03/26/19 Unknown Helmet Cells Not Reportable 04/11/19 04:16 [place] Bodies Not Reportable 04/11/19 04:16 [place] Rings Not Reportable 04/11/19 04:16 Samantha Cells Not Reportable 04/11/19 04:16 Bite Cells Not Reportable 04/11/19 04:16 Crenated Cell Not Reportable 04/11/19 04:16 Elliptocytes Not Reportable 04/11/19 04:16 Acanthocytes (Spur) Not Reportable 04/11/19 04:16 Rouleaux Not Reportable 04/11/19 04:16 Hemoglobin C Crystals Not Reportable 04/11/19 04:16 Schistocytes Not Reportable 04/11/19 04:16 Malaria parasites Not Reportable 04/11/19 04:16 Phil Bodies Not Reportable 04/11/19 04:16 Hem Pathologist Commnt No 04/11/19 04:16 PT 15.3 Sec. (12.2-14.9) H 03/29/19 11:48 INR 1.24 (0.87-1.13) H 03/29/19 11:48 APTT 26.6 Sec. (24.2-36.6) 03/28/19 12:00 Fibrinogen 226 mg/dl (211-480) 03/28/19 12:00 D-Dimer 4845.98 ng/mlDDU (0-234) H 03/28/19 12:00 Heparin Anti-Xa Level 0.23 U.I./ml (0.3-0.7) L 03/28/19 05:13 POC ABG pH 7.401 (7.35-7.45) 04/07/19 12:57 ABG pH 7.388 pH Units (7.350-7.450) 04/06/19 05:20 POC ABG pCO2 41.5 (35-45) 04/07/19 12:57 ABG pCO2 38.5 mm Hg 04/06/19 05:20 POC ABG pO2 107 (80-105) H 04/07/19 12:57 ABG pO2 104.0 mm Hg (80.0-90.0) H 04/06/19 05:20 POC ABG HCO3 25.7 (22-26 mml/L) 04/07/19 12:57 ABG HCO3 22.6 mmol/L (20.0-26.0) 04/06/19 05:20 POC ABG Total CO2 27 (23-27mmol/L) 04/07/19 12:57 POC ABG O2 Sat 98 04/07/19 12:57 ABG O2 Saturation 97.8 % (95.0-99.0) 04/06/19 05:20 ABG O2 Content 10.0 (0.0-44) 04/06/19 05:20 POC ABG Base Excess 1 ((-2) - (+3)mmol/L) 04/07/19 12:57 ABG Base Excess -2.1 mmol/L (-2.0-3.0) L 04/06/19 05:20 ABG Hemoglobin 7.3 gm/dl (14.0-18.0) L 04/06/19 05:20 ABG Carboxyhemoglobin 1.7 % (0.0-5.0) 04/06/19 05:20 ABG Methemoglobin 0.6 % (0.0-1.5) 04/06/19 05:20 Oxyhemoglobin 95.5 % (95.0-99.0) 04/06/19 05:20 FiO2 30 % 04/07/19 12:57 Sodium 136 mmol/L (137-145) L 05/02/19 05:57 Potassium 3.5 mmol/L (3.6-5.0) L 05/02/19 05:57 Chloride 98.8 mmol/L (98-107) 05/02/19 05:57 Carbon Dioxide 22 mmol/L (22-30) 05/02/19 05:57 Anion Gap 19 mmol/L 05/02/19 05:57 BUN 21 mg/dL (9-20) H 05/02/19 05:57 Creatinine 1.3 mg/dL (0.8-1.5) 05/02/19 05:57 Estimated GFR 60 ml/min 05/02/19 05:57 BUN/Creatinine Ratio 16 % 05/02/19 05:57 Glucose 88 mg/dL (75-100) 05/02/19 05:57 POC Glucose 86 (70-105) 05/02/19 17:10 Lactic Acid 1.90 mmol/L (0.7-2.0) 03/21/19 21:31 Calcium 11.1 mg/dL (8.4-10.2) H 05/02/19 05:57 Ionized Calcium 7.2 mg/dL (4.8-5.6) H* 04/29/19 14:14 Phosphorus 5.90 mg/dL (2.5-4.5) H 04/26/19 05:57 Magnesium 1.90 mg/dL (1.7-2.3) 04/26/19 05:57 Iron 26 ug/dL (49-181) L 04/02/19 05:03 TIBC 138 mcg/dL (250-450) L 04/02/19 05:03 Ferritin 607.0 ng/mL (13.0-400.0) H 04/02/19 05:03 Total Bilirubin 0.50 mg/dL (0.1-1.2) 05/01/19 06:52 Direct Bilirubin 0.4 mg/dL (0-0.2) H 03/31/19 08:20 Indirect Bilirubin 0.1 mg/dL 03/31/19 08:20 AST 11 units/L (5-40) 05/01/19 06:52 ALT 7 units/L (7-56) 05/01/19 06:52 Alkaline Phosphatase 54 units/L (35-129) 05/01/19 06:52 Total Creatine Kinase 62 units/L (55-170) 04/07/19 05:40 CK-MB (CK-2) 54.3 ng/mL (0.0-4.0) H 03/17/19 07:16 CK-MB (CK-2) Rel Index 0.0 (0-4) 03/17/19 07:16 Troponin T 0.058 ng/mL (0.00-0.029) H 03/17/19 07:16 C-Reactive Protein 7.10 mg/dL (0.00-1.30) H 04/17/19 04:15 Serum Total Protein 5.7 g/dL (6.1-8.1) L 04/21/19 04:22 Total Protein 6.3 g/dL (6.3-8.2) 05/01/19 06:52 Albumin 3.0 g/dL (3.9-5) L 05/01/19 06:52 Albumin/Globulin Ratio 0.9 % 05/01/19 06:52 Jmnjo-6-Regihprpc 0.5 g/dL (0.2-0.3) H 04/21/19 04:22 Rpejm-6-Xmydsxwkj 1.0 g/dL (0.5-0.9) H 04/21/19 04:22 Beta Globulins 0.4 g/dL (0.2-0.5) 04/21/19 04:22 Gamma Globulins 1.1 g/dL (0.8-1.7) 04/21/19 04:22 Abnorm Protein Band 1 see below 04/21/19 04:22 PEP Interpretation see below H 04/21/19 04:22 Triglycerides 309 mg/dL (2-149) H 03/29/19 06:22 Cholesterol 88 mg/dL (50-199) 03/16/19 22:32 LDL Cholesterol Direct 10 mg/dL (50-130) L 03/16/19 22:32 HDL Cholesterol 7 mg/dL (40-59) L 03/16/19 22:32 Cholesterol/HDL Ratio 12.57 % 03/16/19 22:32 Vitamin B12 903.0 pg/mL (211-911) 04/02/19 05:03 25-Hydroxy Vitamin D2 <4 ng/mL 04/29/19 14:14 25-Hydroxy Vitamin D3 11 ng/mL 04/29/19 14:14 Folate 8.05 ng/mL (7.3-26.0) 04/02/19 05:03 Procalcitonin 25.42 ng/mL (<0.15) 03/27/19 19:21 TSH 2.200 mlU/mL (0.270-4.200) 03/16/19 17:05 Free T4 0.72 ng/dL (0.76-1.46) L 03/16/19 17:05 PTH Intact 8.83 pg/mL (15-65) L 04/29/19 14:14 Urine Color Yellow (Yellow) 04/15/19 22:11 Urine Turbidity Clear (Clear) 04/15/19 22:11 Urine pH 6.0 (5.0-7.0) 04/15/19 22:11 Ur Specific [place] 1.010 (1.003-1.030) 04/15/19 22:11 Urine Protein 30 mg/dl mg/dL (Negative) 04/15/19 22:11 Urine Glucose (UA) Neg mg/dL (Negative) 04/15/19 22:11 Urine Ketones Neg mg/dL (Negative) 04/15/19 22:11 Urine Blood Mod (Negative) 04/15/19 22:11 Urine Nitrite Neg (Negative) 04/15/19 22:11 Urine Bilirubin Neg (Negative) 04/15/19 22:11 Urine Urobilinogen < 2.0 mg/dL (<2.0) 04/15/19 22:11 Ur Leukocyte Esterase Neg (Negative) 04/15/19 22:11 Urine WBC (Auto) 4.0 /HPF (0.0-6.0) 04/15/19 22:11 Urine RBC (Auto) 2.0 /HPF (0.0-6.0) 04/15/19 22:11 U Epithel Cells (Auto) < 1.0 /HPF (0-13.0) 04/15/19 22:11 Amorphous Crystals 1+ 04/05/19 16:50 Urine Mucus Few /HPF 03/17/19 16:05 Urine Sperm 2+ /HPF (CIVIL LABORATORY TECHNICIAN) 03/17/19 16:05 Urine Eosinophils None seen (None Seen) 03/17/19 16:05 Urine Creatinine 106.6 mg/dL (0.1-20.0) H 03/17/19 16:05 Urine Sodium 95 mmol/L 03/17/19 16:05 Vancomycin Trough 11.5 ug/mL (5.0-20.0) 03/18/19 13:19 Random Vancomycin 10.8 ug/mL (0-40.0) 04/14/19 03:55 Salicylates < 0.3 mg/dL (2.8-20.0) L 03/16/19 17:05 Urine Opiates Screen Presumptive negative 03/17/19 16:05 Urine Methadone Screen Presumptive negative 03/17/19 16:05 Acetaminophen < 5.0 ug/mL (10.0-30.0) L 03/16/19 17:05 Ur Barbiturates Screen Presumptive negative 03/17/19 16:05 Ur Phencyclidine Scrn Presumptive negative 03/17/19 16:05 Ur Amphetamines Screen Presumptive negative 03/17/19 16:05 U Benzodiazepines Scrn Presumptive positive 03/17/19 16:05 Urine Cocaine Screen Presumptive negative 03/17/19 16:05 U Marijuana (THC) Screen Presumptive negative 03/17/19 16:05 Drugs of Abuse Note Disclamer 03/17/19 16:05 Plasma/Serum Alcohol < 0.01 % (0-0.07) 03/16/19 17:05 LANDY Screen Negative (Negative) 04/17/19 04:15 Proteinase 3 (PR3) Ab <1.0 AI (<1.0) 04/21/19 04:22 Myeloperoxidase Ab <1.0 AI (<1.0) 04/21/19 04:22 Complement C3 150 mg/dL (82-185) 04/17/19 04:15 Complement C4 37 mg/dL (15-53) 04/17/19 04:15 Hepatitis A IgM Ab Non-reactive (NonReactive) 04/18/19 10:02 Hep Bs Antigen Non-reactive (Negative) 04/18/19 10:02 Hep B Core IgM Ab Non-reactive (NonReactive) 04/18/19 10:02 Hepatitis C Antibody Non-reactive (NonReactive) 04/18/19 10:02 HIV 1&2 Antibody Rapid Non react (Non React) 03/17/19 11:52 HIV P24 Antigen Non react (Non React) 03/17/19 11:52 Influenza A (Rapid) Negative (Negative) 03/17/19 17:00 Influenza B (Rapid) Negative (Negative) 03/17/19 17:00 Group A Strep Rapid Negative (Negative) 03/17/19 17:00 Miscellaneous Test Flexitest 1 03/21/19 12:00 Blood Type A POSITIVE 04/02/19 16:34 Antibody Screen Negative 04/02/19 16:34 Crossmatch See Detail 04/02/19 16:34 Active Medications - Current Medications Current Medications: Generic Name Dose Route Start Last Admin Trade Name Freq PRN Reason Stop Dose Admin Acetaminophen 650 mg 04/02/19 23:26 04/30/19 11:16 Tylenol PO 650 mg Q4H PRN Administration Pain, Mild (1-3),temp>100.5 Acetaminophen/Hydrocodone Bitart 1 each 05/02/19 11:50 05/02/19 12:58 [place] 5/325 PO 1 each Q6H PRN Administration Pain, Moderate (4-6) Al Hydrox/Mg Hydrox/Simethicone 15 ml 04/30/19 15:15 04/30/19 15:53 Alum-Mag Hydrox-Simeth [id number]/5ml PO 15 ml Q4H PRN Administration Indigestion Albuterol 2.5 mg 03/29/19 13:08 Proventil IH Q4HRT PRN Shortness Of Breath Amiodarone HCl 200 mg 04/15/19 22:00 05/02/19 09:24 Cordarone PO 200 mg BID PAOLO Administration Lipase/Protease/Amylase 1 each 04/20/19 13:17 Pancreazapril Purcell 10,500 Unit FEEDTUBE PRN PRN For Clogged Feeding Tube Bacitracin 1 applic 04/17/19 08:00 Antibiotic Oint TP Q4H PRN upper lip sore/open Dextrose 50 gm 04/17/19 08:00 D50w (25gm) Vial IV Q1H PRN Hypoglycemia Hydralazine HCl 20 mg 04/14/19 03:00 04/14/19 03:11 Apresoline IV 20 mg Q4H PRN Administration hypertemsion Hydrophilic Ointment 1 applic 03/16/19 15:50 04/19/19 18:24 Vaseline Lip Therapy TP 1 applic Q2HR PRN Administration Dry Lips Sodium Chloride 100 mls @ 999 mls/hr 04/20/19 08:41 Nacl 0.9% IV NEYMAR PRN Hypotension Lansoprazole 30 mg 04/11/19 10:00 05/02/19 09:24 Prevacid Solutab FEEDTUBE 30 mg BID PAOLO Administration Melatonin 5 mg 04/26/19 21:00 05/01/19 23:54 Melatonin PO 5 mg QHS PRN Administration Sleep Metoprolol Tartrate 5 mg 04/16/19 22:24 04/22/19 00:20 Lopressor IV 5 mg Q6H PRN Administration For HR >120 Metoprolol Tartrate 25 mg 04/17/19 20:00 05/02/19 14:23 Lopressor PO Not Given TID PAOLO Multi-Ingred Cream/Lotion/Oil/Oint 1 applic 03/16/19 15:50 03/19/19 20:10 Artificial Tears Ophth Oint OU 1 applic Q4HR PRN Administration Dry Eye(s) Simple Syrup 15 ml 04/20/19 13:17 Simple Syrup FEEDTUBE PRN PRN Hypoglycemia Simple Syrup 30 ml 04/20/19 13:29 05/01/19 17:57 Simple Syrup FEEDTUBE 30 ml PRN PRN Administration Hypoglycemia Sodium Bicarbonate 325 mg 04/20/19 13:17 04/27/19 11:03 Sodium Bicarbonate FEEDTUBE 325 mg PRN PRN Administration For Clogged Feeding Tube Sodium Hypochlorite 1 applic 04/18/19 11:00 05/02/19 09:25 Dakin's Half Strength TP 1 applicatio BID PAOLO Administration Nutrition/Malnutrition Assess - Dietary Evaluation Nutrition/Malnutrition Findings: Nutrition Notes Start: 03/17/19 14:22 Freq: Status: Active Protocol: Document 05/02/19 10:05 DW (Rec: 05/02/19 11:29 DW [id number]) Co-Sign 05/02/19 10:05 LM Nutrition Notes Initial or Follow up Reassessment Current Diagnosis Acute Kidney Injury,Heart Failure Other Pertinent Diagnosis on HD, Septic shock,Multiple organ failure, encephalopathy, Aspiration pneu Current Diet Mechanical Soft Diet w/Ensure Clear BID Labs/Tests Na 136 K 3.5 BUN 21 Pertinent Medications Reviewed Height 6 ft Weight 146.8 kg [place] Body Weight (kg) 80.90 BMI 43.9 Subjective/Other Information FU PO/ONS intake Upon arrival pt was concerned about nectar thick liquids. Supervisor Delivery Department spoke with ENGRAVER ORNAMENTAL DESIGN and per ENGRAVER ORNAMENTAL DESIGN pt has been advanced to thin liquids. Pt also stated he does not like the hospital food and eats <25% but is drinknig 100% ONS. Noted 0% breakfast consumed at bedside Percent of energy/protein needs met: 12%/7% Burn Absent Trauma Absent Minimum of two criteria No #1 Nutrition Diagnosis Inadequate oral intake As Evidenced by Signs and Symptoms Pt meeting 12% kcal and 7% PRO needs via ONS only Diagnosis Progress(for reassessment Worsened documentation) Is patient on ventilator? No Is Patient Ambulatory and/or Out of Bed No REE-(Oblong-St. Jeor-confined to bed) 2871.756 Kcal/Kg value to use for calculation 14 Approximate Energy Requirements Using 2054 kcal/Kg Calculation Used for Recommendations Kcal/kg Additional Notes Protein: 116-145g (1.2-1.5g/kg , AjdBW 97 kg) Fluids:1 ml/kcal or per MD Nutrition Intervention Change Diet Order: Continue Current Diet Add Supplement/Snack (indicate name/kcal Ensure Clear BID /protein ) Provides kCal: 480 Provides Protein (gm) 16 Goal #1 Meet atleast 75% of kcal/PRO needs via PO and ONS intakes Anticipated Discharge Needs: Unable to determine at this time Follow-Up By: 05/04/19 Additional Comments FU PO/ONS intake
[2019-05-03] MEDS: SODIUM HYPOCHLORITE, DAKIN'S 1/2 STRENGTH (0.25%) 473 ML TOPICAL SOLN TP SCH ×3 (00:02→21:00)
[2019-05-03 06:04] LABS: Hematocrit 26.1 % (35.5-45.6); Hemoglobin 8.3 gm/dl (11.8-15.2); Mean Corpuscular HGB Conc 32 % (32-34); Mean Corpuscular Volume 87 fl (84-94); Platelet Count 344 K/mm3 (140-440); Red Blood Count 3.01 M/mm3 (3.65-5.03); Red Cell Distribution Width 16.9 % (13.2-15.2)
[2019-05-03 06:25] LABS: Albumin 2.5 g/dL (3.8-4.8)
[2019-05-03 06:28] LABS: Calcium 10.9 mg/dL (8.4-10.2)
[2019-05-03] MEDS ORDERED: REGADENOSON 0.4 MG/5 ML INJ IV ONE (07:12)
[2019-05-03] MEDS ORDERED: MAGNESIUM SULFATE 3 GM in SODIUM CHLORIDE 0.9% 100 ML IV ONE (09:30)
--- NOTE | 2019-05-03 09:57 | Progress Note ---
Assessment and Plan 1. Acute kidney injury: Vasomotor RUBEN in the setting of shock / volume depletion / Rhabdo. Baseline renal function is unknown. CT abdomen was negative for obstructive nephropathy. Patient was started on hemodialysis on 03/18/19 due to worsening metabolic acidosis and hyperkalemia. Hemodialysis: 03/18, 03/19, 03/20, 03/22, 03/23, 03/24, 03/26, 03/28, 03/29, 03/31, 04/02, 04/04, 04/06, 04/09, 04/11, 04/13, 04/18, 04/20. Monitor for [employer] needs. Renal function continue to improve. Monitor renal function. Avoid nephrotoxic agents. Meds dosage based on GFR. 2. FEN: Hypercalcemia, multifactorial etiology. Contributing factor includes immobilization. Patient previously received high dose Vitamin D and activated Vit.D for hypocalcemia. PTH level is currently low. Ionized Calcium is high 25-OH Vit.D level pending. S/p Pamidronate on 04/26 and Calcitonin. Calcium level is improving. Replete K and Mg. Monitor lytes. 3. Septic shock: Currently off pressors. Fever resolved. Per ID recommendation the dialysis catheter was removed on 04/20. 4. Rhabdomyolysis: Improved. 5. A.fib with RVR: On Amiodarone and Metoprolol. 6. Respiratory failure: Extubated. 7. Severe anemia: S/p PRBC and Epogen. 8. Elevated transaminases: Improved. 9. Encephalopathy: Improved. Examination: General appearance: well-developed, appears stated age, obese, not in distress HEENT: Atraumatic EYES: Pupils reacting to light Neck: supple Respiratory: ctab Cardiology: regular, S1S2 heard, no murmur Gastrointestinal: obese, BS heard, not tender Integumentary: no rash noted Neurologic: alert, follows command, conversing, oriented Ext: L UE edema is better Skin: L elbow area wound Hemodialysis access: None Subjective Date of service: 05/03/19 Principal diagnosis: anemia - DVT rt IJ Interval history: Patient was seen and examined at the bedside. Doing ok. Objective - Vital Signs Vital signs: Vital Signs - 12hr 05/02/19 05/02/19 05/02/19 22:00 22:26 22:32 Temperature 98.1 F Pulse Rate 100 H 93 H Respiratory 18 Rate Respiratory 17 Rate [Sacrum] Blood Pressure 141/78 141/78 O2 Sat by Pulse 95 95 Oximetry 05/03/19 05:32 Temperature 98.3 F Pulse Rate 86 Respiratory 18 Rate Respiratory Rate [Sacrum] Blood Pressure 123/71 O2 Sat by Pulse 94 Oximetry - Lab 05/03/19 05:37 05/03/19 05:37 Most recent lab results ABG pH 7.388 pH Units (7.350-7.450) 04/06/19 05:20 ABG pCO2 38.5 mm Hg 04/06/19 05:20 ABG pO2 104.0 mm Hg (80.0-90.0) H 04/06/19 05:20 ABG HCO3 22.6 mmol/L (20.0-26.0) 04/06/19 05:20 ABG O2 Saturation 97.8 % (95.0-99.0) 04/06/19 05:20 Calcium 10.9 mg/dL (8.4-10.2) H 05/03/19 05:37 Phosphorus 2.80 mg/dL (2.5-4.5) 05/03/19 05:37 Magnesium 1.50 mg/dL (1.7-2.3) L 05/03/19 05:37 Urine Creatinine 106.6 mg/dL (0.1-20.0) H 03/17/19 16:05 Urine Sodium 95 mmol/L 03/17/19 16:05 Medications & Allergies - Medications Allergies/Adverse Reactions: Allergies No Known Allergies Allergy (Unverified 03/16/19 17:17) Home Medications: Home Medications Medication Instructions Recorded Confirmed Last Taken Type No Known Home Medications [No 04/28/19 04/28/19 Unknown History Reported Home Medications] Active Medications: Generic Name Dose Route Start Last Admin Trade Name Freq PRN Reason Stop Dose Admin Acetaminophen 650 mg 04/02/19 23:26 04/30/19 11:16 Tylenol PO 650 mg Q4H PRN Administration Pain, Mild (1-3),temp>100.5 Acetaminophen/Hydrocodone Bitart 1 each 05/02/19 11:50 05/02/19 12:58 [place] 5/325 PO 1 each Q6H PRN Administration Pain, Moderate (4-6) Al Hydrox/Mg Hydrox/Simethicone 15 ml 04/30/19 15:15 04/30/19 15:53 Alum-Mag Hydrox-Simeth 438-161-42ks/5ml PO 15 ml Q4H PRN Administration Indigestion Albuterol 2.5 mg 03/29/19 13:08 Proventil IH Q4HRT PRN Shortness Of Breath Amiodarone HCl 200 mg 04/15/19 22:00 05/02/19 22:31 Cordarone PO 200 mg BID PAOLO Administration Lipase/Protease/Amylase 1 each 04/20/19 13:17 Pancreaze 10,500 Unit FEEDTUBE PRN PRN For Clogged Feeding Tube Bacitracin 1 applic 04/17/19 08:00 Antibiotic Oint TP Q4H PRN upper lip sore/open Dextrose 50 gm 04/17/19 08:00 D50w (25gm) Vial IV Q1H PRN Hypoglycemia Hydralazine HCl 20 mg 04/14/19 03:00 04/14/19 03:11 Apresoline IV 20 mg Q4H PRN Administration hypertemsion Hydrophilic Ointment 1 applic 03/16/19 15:50 04/19/19 18:24 Vaseline Lip Therapy TP 1 applic Q2HR PRN Administration Dry Lips Sodium Chloride 100 mls @ 999 mls/hr 04/20/19 08:41 Nacl 0.9% IV NEYMAR PRN Hypotension Magnesium Sulfate 3 gm/ Sodium 106 mls @ 35.333 mls/hr 05/03/19 09:30 Chloride IV 05/03/19 12:29 ONCE ONE Lansoprazole 30 mg 04/11/19 10:00 05/02/19 22:31 Prevacid Solutab FEEDTUBE 30 mg BID PAOLO Administration Melatonin 5 mg 04/26/19 21:00 05/01/19 23:54 Melatonin PO 5 mg QHS PRN Administration Sleep Metoprolol Tartrate 5 mg 04/16/19 22:24 04/22/19 00:20 Lopressor IV 5 mg Q6H PRN Administration For HR >120 Metoprolol Tartrate 25 mg 04/17/19 20:00 05/02/19 22:32 Lopressor PO 25 mg TID PAOLO Administration Multi-Ingred Cream/Lotion/Oil/Oint 1 applic 03/16/19 15:50 03/19/19 20:10 Artificial Tears Ophth Oint OU 1 applic Q4HR PRN Administration Dry Eye(s) Potassium Chloride 40 meq 05/03/19 08:00 K-Dur PO 05/03/19 20:01 Q6H PAOLO Simple Syrup 15 ml 04/20/19 13:17 Simple Syrup FEEDTUBE PRN PRN Hypoglycemia Simple Syrup 30 ml 04/20/19 13:29 05/01/19 17:57 Simple Syrup FEEDTUBE 30 ml PRN PRN Administration Hypoglycemia Sodium Bicarbonate 325 mg 04/20/19 13:17 04/27/19 11:03 Sodium Bicarbonate FEEDTUBE 325 mg PRN PRN Administration For Clogged Feeding Tube Sodium Hypochlorite 1 applic 04/18/19 11:00 05/03/19 00:02 Dakin's Half Strength TP Not Given BID PAOLO
[2019-05-03] MEDS: POTASSIUM CHLORIDE ER 20 MEQ TAB PO SCH ×3 (11:29→20:12)
[2019-05-03] MEDS: AMIODARONE 200 MG TAB PO SCH (11:30)
[2019-05-03] MEDS: LANSOPRAZOLE 30 MG SOLUTAB FEEDTUBE SCH ×2 (11:30→21:00)
[2019-05-03] MEDS: HYDROcodone/ACETAMINOPHEN 5-325 MG TAB PO PRN ×3 (11:30→22:27)
[2019-05-03] MEDS: METOPROLOL TARTRATE 25 MG TAB PO SCH ×3 (11:30→20:15)
--- NOTE | 2019-05-03 11:45 | Progress Note ---
Assessment and Plan Patient is a 43 y/o man w/ a history of psychiatric illness (unknown which psychiatric diagnosis he has been given in the past), who presented on 03/16/19 with altered mental status. During the course of admission, patient was found to have sepsis with septic shock, rhabdomyolysis, RUBEN, and multiorgan failure. According to the patient's clinical findings, the patient likely has toxic metabolic encephalopathy. In support of this diagnosis, during this admission the patient has had multiple metabolic derangements including multiorgan fa ilure, sepsis, septic shock requiring pressor support, RUBEN, rhabdomyolysis. Plan: 1. Metabolic encephalopathy: - Resolved. - Was likely due to multiple underlying metabolic derangements, as well as i nfections. - Continue supportive care per primary team. - Discussed at length with patient's brother regarding current neurologic status, and that patient has improved significantly since admission. He is now at baseline of mental status. 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 Will require long- term PT/OT. -Will sign off as encephalopathy has resolved. Please call with any questions. Thank you for allowing me to take part in the care of this patient. Nahid Carroll MD Neurology Subjective Date of service: 05/03/19 Principal diagnosis: anemia - DVT rt IJ Interval history: No acute events overnight. Patient has been moved out of ICU, NG tube removed. Objective - Exam Narrative Exam: Patient is awake, alert, oriented x4, follows complex commands. PERRL, EOMI, no facial weakness noted, tongue midline, visual argueta full, bilaterally intact to light touch. Bilaterally intact light touch in all extremities.. 2+ reflexes in UE, 1+ reflexes in LE. No dysarthria or aphasia noted. RUE 4/5, LUE 4/5, 2/5 strength in bilateral lower extremities. - Vital Sign Vital Signs - 12hr 05/03/19 05/03/19 05/03/19 05:32 09:15 09:26 Temperature 98.3 F Pulse Rate 86 Respiratory 18 Rate Blood Pressure 123/71 131/76 124/80 O2 Sat by Pulse 94 Oximetry 05/03/19 05/03/19 05/03/19 09:33 09:35 09:36 Temperature Pulse Rate Respiratory Rate Blood Pressure 108/51 102/51 103/49 O2 Sat by Pulse Oximetry 05/03/19 05/03/19 09:38 09:39 Temperature Pulse Rate Respiratory Rate Blood Pressure 104/57 103/58 O2 Sat by Pulse Oximetry - General Apperance Constitutional: comfortable - EENT EENT: ATNC, PERRL, mucous membranes moist, hearing intact, vision intact - Respiratory Respiratory: lungs clear, normal breath sounds - Cardiovascular Cardiovascular: regular rate, normal S1, normal S2 Extremities: no clubbing, cyanosis, no inflammation - Gastrointestinal Gastrointestinal: normoactive bowel sounds, soft, non-tender - Integumentary Integumentary: normal - Psychiatric Psychiatric: mood/affect appropriate - Laboratory Findings CBC and BMP: 05/03/19 05:37 05/03/19 05:37 Abnormal Lab Findings: Abnormal Labs 03/16/19 03/16/19 03/16/19 15:32 16:03 16:05 WBC 27.0 H RBC 5.55 H Hgb 15.7 H Hct 47.1 H MCV MCHC RDW Plt Count 75 L Lymph % (Auto) [place] % (Auto) Lymph # [place] # Eos # Seg Neutrophils % Seg Neuts % (Manual) 85.0 H Lymphocytes % (Manual) 2.0 L Monocytes % (Manual) Nucleated RBC % Seg Neutrophils # Seg Neutrophils # Man 23.0 H Lymphocytes # (Manual) 0.5 L Monocytes # (Manual) PT INR D-Dimer Heparin Anti-Xa Level POC ABG pH ABG pH POC ABG pCO2 POC ABG pO2 ABG pO2 ABG HCO3 ABG O2 Saturation ABG Base Excess ABG Hemoglobin Oxyhemoglobin Sodium 127 L Potassium Chloride 87.8 L Carbon Dioxide 17 L BUN 49 H Creatinine 5.8 H Glucose 150 H POC Glucose 118 H Lactic Acid Calcium 6.6 L Ionized Calcium Phosphorus Magnesium 1.10 L Iron TIBC Ferritin Total Bilirubin Direct Bilirubin AST ALT Alkaline Phosphatase Total Creatine Kinase 50106 H CK-MB (CK-2) Troponin T C-Reactive Protein Serum Total Protein Total Protein Albumin Zfuyc-1-Embpaypah Wfsdq-2-Gorotiyyk PEP Interpretation Triglycerides LDL Cholesterol Direct HDL Cholesterol Free T4 PTH Intact Urine WBC (Auto) Urine Creatinine Salicylates Acetaminophen Crossmatch 03/16/19 03/16/19 03/16/19 16:59 17:05 17:05 WBC RBC Hgb Hct MCV MCHC RDW Plt Count Lymph % (Auto) [place] % (Auto) Lymph # [place] # Eos # Seg Neutrophils % Seg Neuts % (Manual) Lymphocytes % (Manual) Monocytes % (Manual) Nucleated RBC % Seg Neutrophils # Seg Neutrophils # Man Lymphocytes # (Manual) Monocytes # (Manual) PT INR D-Dimer Heparin Anti-Xa Level POC ABG pH 7.297 L ABG pH POC ABG pCO2 33.0 L POC ABG pO2 ABG pO2 ABG HCO3 ABG O2 Saturation ABG Base Excess ABG Hemoglobin Oxyhemoglobin Sodium Potassium Chloride Carbon Dioxide BUN Creatinine Glucose POC Glucose Lactic Acid Calcium Ionized Calcium Phosphorus Magnesium Iron TIBC Ferritin Total Bilirubin Direct Bilirubin AST ALT Alkaline Phosphatase Total Creatine Kinase 65031 H CK-MB (CK-2) 83.1 H Troponin T C-Reactive Protein Serum Total Protein Total Protein Albumin Abrsx-8-Avdlmnmmu Yyylk-6-Mxibfkjwq PEP Interpretation Triglycerides LDL Cholesterol Direct HDL Cholesterol Free T4 0.72 L PTH Intact Urine WBC (Auto) Urine Creatinine Salicylates Acetaminophen Crossmatch 03/16/19 03/16/19 03/16/19 17:05 17:05 17:05 WBC RBC Hgb Hct MCV MCHC RDW Plt Count Lymph % (Auto) [place] % (Auto) Lymph # [place] # Eos # Seg Neutrophils % Seg Neuts % (Manual) Lymphocytes % (Manual) Monocytes % (Manual) Nucleated RBC % Seg Neutrophils # Seg Neutrophils # Man Lymphocytes # (Manual) Monocytes # (Manual) PT INR D-Dimer Heparin Anti-Xa Level POC ABG pH ABG pH POC ABG pCO2 POC ABG pO2 ABG pO2 ABG HCO3 ABG O2 Saturation ABG Base Excess ABG Hemoglobin Oxyhemoglobin Sodium Potassium Chloride Carbon Dioxide BUN Creatinine Glucose POC Glucose Lactic Acid 5.10 H* Calcium Ionized Calcium Phosphorus Magnesium Iron TIBC Ferritin Total Bilirubin Direct Bilirubin AST ALT Alkaline Phosphatase Total Creatine Kinase CK-MB (CK-2) Troponin T C-Reactive Protein Serum Total Protein Total Protein Albumin Nmrsl-7-Roppstgno Neabj-5-Tebigvjpx PEP Interpretation Triglycerides LDL Cholesterol Direct HDL Cholesterol Free T4 PTH Intact Urine WBC (Auto) Urine Creatinine Salicylates < 0.3 L Acetaminophen < 5.0 L Crossmatch 03/16/19 03/16/19 03/16/19 17:05 17:05 20:35 WBC RBC Hgb Hct MCV MCHC RDW Plt Count Lymph % (Auto) [place] % (Auto) Lymph # [place] # Eos # Seg Neutrophils % Seg Neuts % (Manual) Lymphocytes % (Manual) Monocytes % (Manual) Nucleated RBC % Seg Neutrophils # Seg Neutrophils # Man Lymphocytes # (Manual) Monocytes # (Manual) PT 15.9 H INR 1.30 H D-Dimer Heparin Anti-Xa Level POC ABG pH ABG pH POC ABG pCO2 POC ABG pO2 ABG pO2 ABG HCO3 ABG O2 Saturation ABG Base Excess ABG Hemoglobin Oxyhemoglobin Sodium Potassium Chloride Carbon Dioxide BUN Creatinine Glucose POC Glucose Lactic Acid 3.30 H* Calcium Ionized Calcium Phosphorus Magnesium Iron TIBC Ferritin Total Bilirubin 6.20 H Direct Bilirubin 5.9 H AST 800 H ALT 120 H Alkaline Phosphatase Total Creatine Kinase CK-MB (CK-2) Troponin T C-Reactive Protein Serum Total Protein Total Protein 4.4 L Albumin 2.4 L Eklgh-7-Jtlkthyiv Xtffa-3-Kfedjbajx PEP Interpretation Triglycerides LDL Cholesterol Direct HDL Cholesterol Free T4 PTH Intact Urine WBC (Auto) Urine Creatinine Salicylates Acetaminophen Crossmatch 03/16/19 03/16/19 03/16/19 21:45 22:32 Unknown WBC RBC Hgb Hct MCV MCHC RDW Plt Count Lymph % (Auto) [place] % (Auto) Lymph # [place] # Eos # Seg Neutrophils % Seg Neuts % (Manual) Lymphocytes % (Manual) Monocytes % (Manual) Nucleated RBC % Seg Neutrophils # Seg Neutrophils # Man Lymphocytes # (Manual) Monocytes # (Manual) PT INR D-Dimer Heparin Anti-Xa Level POC ABG pH ABG pH POC ABG pCO2 POC ABG pO2 ABG pO2 ABG HCO3 ABG O2 Saturation ABG Base Excess ABG Hemoglobin Oxyhemoglobin Sodium Potassium Chloride Carbon Dioxide BUN Creatinine Glucose POC Glucose Lactic Acid 3.30 H* 3.00 H* Calcium Ionized Calcium Phosphorus Magnesium Iron TIBC Ferritin Total Bilirubin Direct Bilirubin AST ALT Alkaline Phosphatase Total Creatine Kinase CK-MB (CK-2) Troponin T 0.047 H D C-Reactive Protein Serum Total Protein Total Protein Albumin Kpedv-7-Gzmridvax Rutyk-8-Zkbrmzqwv PEP Interpretation Triglycerides 395 H LDL Cholesterol Direct 10 L HDL Cholesterol 7 L Free T4 PTH Intact Urine WBC (Auto) Urine Creatinine Salicylates Acetaminophen Crossmatch 03/17/19 03/17/19 03/17/19 03:45 03:45 03:45 WBC RBC Hgb Hct MCV MCHC RDW Plt Count Lymph % (Auto) [place] % (Auto) Lymph # [place] # Eos # Seg Neutrophils % Seg Neuts % (Manual) Lymphocytes % (Manual) Monocytes % (Manual) Nucleated RBC % Seg Neutrophils # Seg Neutrophils # Man Lymphocytes # (Manual) Monocytes # (Manual) PT INR D-Dimer Heparin Anti-Xa Level POC ABG pH ABG pH POC ABG pCO2 POC ABG pO2 ABG pO2 ABG HCO3 ABG O2 Saturation ABG Base Excess ABG Hemoglobin Oxyhemoglobin Sodium 131 L Potassium Chloride 88.9 L Carbon Dioxide BUN 53 H Creatinine 7.1 H Glucose POC Glucose Lactic Acid 4.10 H* Calcium 5.4 L* D Ionized Calcium Phosphorus 7.30 H Magnesium 1.60 L Iron TIBC Ferritin Total Bilirubin 5.90 H Direct Bilirubin AST 801 H ALT 109 H Alkaline Phosphatase Total Creatine Kinase 52898 H 67020 H CK-MB (CK-2) 41.5 H Troponin T 0.054 H C-Reactive Protein Serum Total Protein Total Protein 4.5 L Albumin 2.0 L Muret-3-Qflxtgptn Zznuu-4-Szgkoflxc PEP Interpretation Triglycerides LDL Cholesterol Direct HDL Cholesterol Free T4 PTH Intact Urine WBC (Auto) Urine Creatinine Salicylates Acetaminophen Crossmatch 03/17/19 03/17/19 03/17/19 05:47 07:16 07:16 WBC RBC Hgb Hct MCV MCHC RDW Plt Count Lymph % (Auto) [place] % (Auto) Lymph # [place] # Eos # Seg Neutrophils % Seg Neuts % (Manual) Lymphocytes % (Manual) Monocytes % (Manual) Nucleated RBC % Seg Neutrophils # Seg Neutrophils # Man Lymphocytes # (Manual) Monocytes # (Manual) PT INR D-Dimer Heparin Anti-Xa Level POC ABG pH 7.193 L ABG pH POC ABG pCO2 45.2 H POC ABG pO2 65 L ABG pO2 ABG HCO3 ABG O2 Saturation ABG Base Excess ABG Hemoglobin Oxyhemoglobin Sodium Potassium Chloride Carbon Dioxide BUN Creatinine Glucose POC Glucose Lactic Acid 5.50 H* Calcium Ionized Calcium Phosphorus Magnesium Iron TIBC Ferritin Total Bilirubin Direct Bilirubin AST ALT Alkaline Phosphatase Total Creatine Kinase 92415 H CK-MB (CK-2) 54.3 H Troponin T 0.058 H C-Reactive Protein Serum Total Protein Total Protein Albumin Jbuaq-2-Sntrfuzyu Qbauz-6-Tfxrlqhsq PEP Interpretation Triglycerides LDL Cholesterol Direct HDL Cholesterol Free T4 PTH Intact Urine WBC (Auto) Urine Creatinine Salicylates Acetaminophen Crossmatch 03/17/19 03/17/19 03/17/19 11:52 12:51 13:01 WBC RBC Hgb Hct MCV MCHC RDW Plt Count Lymph % (Auto) [place] % (Auto) Lymph # [place] # Eos # Seg Neutrophils % Seg Neuts % (Manual) Lymphocytes % (Manual) Monocytes % (Manual) Nucleated RBC % Seg Neutrophils # Seg Neutrophils # Man Lymphocytes # (Manual) Monocytes # (Manual) PT INR D-Dimer Heparin Anti-Xa Level POC ABG pH 7.154 L ABG pH POC ABG pCO2 34.3 L POC ABG pO2 73 L ABG pO2 ABG HCO3 ABG O2 Saturation ABG Base Excess ABG Hemoglobin Oxyhemoglobin Sodium Potassium Chloride Carbon Dioxide BUN Creatinine Glucose POC Glucose 60 L Lactic Acid 8.20 H* Calcium Ionized Calcium Phosphorus Magnesium Iron TIBC Ferritin Total Bilirubin Direct Bilirubin AST ALT Alkaline Phosphatase Total Creatine Kinase CK-MB (CK-2) Troponin T C-Reactive Protein Serum Total Protein Total Protein Albumin Pxmvw-9-Owqmghrwo Mdyev-9-Jkfcqiqeo PEP Interpretation Triglycerides LDL Cholesterol Direct HDL Cholesterol Free T4 PTH Intact Urine WBC (Auto) Urine Creatinine Salicylates Acetaminophen Crossmatch 03/17/19 03/17/19 03/17/19 14:37 14:37 14:37 WBC 29.3 H RBC Hgb Hct MCV MCHC RDW 15.8 H Plt Count 45 L Lymph % (Auto) [place] % (Auto) Lymph # [place] # Eos # Seg Neutrophils % Seg Neuts % (Manual) 81.0 H Lymphocytes % (Manual) 1.0 L Monocytes % (Manual) 15.0 H Nucleated RBC % Seg Neutrophils # Seg Neutrophils # Man 23.7 H Lymphocytes # (Manual) 0.3 L Monocytes # (Manual) 4.4 H PT INR D-Dimer Heparin Anti-Xa Level POC ABG pH ABG pH POC ABG pCO2 POC ABG pO2 ABG pO2 ABG HCO3 ABG O2 Saturation ABG Base Excess ABG Hemoglobin Oxyhemoglobin Sodium Potassium Chloride Carbon Dioxide BUN Creatinine Glucose POC Glucose Lactic Acid 4.90 H* Calcium Ionized Calcium Phosphorus Magnesium Iron TIBC Ferritin Total Bilirubin Direct Bilirubin AST ALT Alkaline Phosphatase Total Creatine Kinase CK-MB (CK-2) Troponin T C-Reactive Protein 24.90 H Serum Total Protein Total Protein Albumin Duhgj-1-Hvvpuqopw Ffqlg-5-Bmxtzbexq PEP Interpretation Triglycerides LDL Cholesterol Direct HDL Cholesterol Free T4 PTH Intact Urine WBC (Auto) Urine Creatinine Salicylates Acetaminophen Crossmatch 03/17/19 03/17/19 03/17/19 16:05 16:05 17:02 WBC RBC Hgb Hct MCV MCHC RDW Plt Count Lymph % (Auto) [place] % (Auto) Lymph # [place] # Eos # Seg Neutrophils % Seg Neuts % (Manual) Lymphocytes % (Manual) Monocytes % (Manual) Nucleated RBC % Seg Neutrophils # Seg Neutrophils # Man Lymphocytes # (Manual) Monocytes # (Manual) PT INR D-Dimer Heparin Anti-Xa Level POC ABG pH 7.183 L ABG pH POC ABG pCO2 POC ABG pO2 65 L ABG pO2 ABG HCO3 ABG O2 Saturation ABG Base Excess ABG Hemoglobin Oxyhemoglobin Sodium Potassium Chloride Carbon Dioxide BUN Creatinine Glucose POC Glucose Lactic Acid Calcium Ionized Calcium Phosphorus Magnesium Iron TIBC Ferritin Total Bilirubin Direct Bilirubin AST ALT Alkaline Phosphatase Total Creatine Kinase CK-MB (CK-2) Troponin T C-Reactive Protein Serum Total Protein Total Protein Albumin Gimzi-9-Vjicmjhin Hdupv-2-Zmgfuqkyj PEP Interpretation Triglycerides LDL Cholesterol Direct HDL Cholesterol Free T4 PTH Intact Urine WBC (Auto) 30.0 H Urine Creatinine 106.6 H Salicylates Acetaminophen Crossmatch 03/18/19 03/18/19 03/18/19 05:12 05:16 05:53 WBC RBC Hgb Hct MCV MCHC RDW Plt Count Lymph % (Auto) [place] % (Auto) Lymph # [place] # Eos # Seg Neutrophils % Seg Neuts % (Manual) Lymphocytes % (Manual) Monocytes % (Manual) Nucleated RBC % Seg Neutrophils # Seg Neutrophils # Man Lymphocytes # (Manual) Monocytes # (Manual) PT INR D-Dimer Heparin Anti-Xa Level POC ABG pH 7.257 L ABG pH POC ABG pCO2 31.6 L POC ABG pO2 69 L ABG pO2 ABG HCO3 ABG O2 Saturation ABG Base Excess ABG Hemoglobin Oxyhemoglobin Sodium Potassium Chloride Carbon Dioxide BUN Creatinine Glucose POC Glucose 141 H Lactic Acid 5.00 H* Calcium Ionized Calcium Phosphorus Magnesium Iron TIBC Ferritin Total Bilirubin Direct Bilirubin AST ALT Alkaline Phosphatase Total Creatine Kinase CK-MB (CK-2) Troponin T C-Reactive Protein Serum Total Protein Total Protein Albumin Yhusq-0-Assrqmdpg Xkgtn-1-Fqrysozeq PEP Interpretation Triglycerides LDL Cholesterol Direct HDL Cholesterol Free T4 PTH Intact Urine WBC (Auto) Urine Creatinine Salicylates Acetaminophen Crossmatch 03/18/19 03/18/19 03/18/19 06:57 08:40 08:40 WBC 31.7 H RBC Hgb Hct MCV MCHC RDW 15.5 H Plt Count 35 L Lymph % (Auto) [place] % (Auto) Lymph # [place] # Eos # Seg Neutrophils % Seg Neuts % (Manual) Lymphocytes % (Manual) Monocytes % (Manual) Nucleated RBC % Seg Neutrophils # Seg Neutrophils # Man Lymphocytes # (Manual) Monocytes # (Manual) PT INR D-Dimer Heparin Anti-Xa Level POC ABG pH ABG pH POC ABG pCO2 POC ABG pO2 ABG pO2 ABG HCO3 ABG O2 Saturation ABG Base Excess ABG Hemoglobin Oxyhemoglobin Sodium 132 L Potassium 5.5 H D Chloride 88.5 L Carbon Dioxide 18 L BUN 71 H Creatinine 8.1 H Glucose 205 H POC Glucose Lactic Acid 5.00 H* Calcium 4.1 L* D Ionized Calcium Phosphorus Magnesium 2.40 H Iron TIBC Ferritin Total Bilirubin 7.50 H Direct Bilirubin AST 1088 H ALT 159 H Alkaline Phosphatase 190 H Total Creatine Kinase 088740 H CK-MB (CK-2) Troponin T C-Reactive Protein Serum Total Protein Total Protein 4.7 L Albumin 1.8 L Luqze-5-Pyumuuavj Ofcbq-0-Gnxtfzutd PEP Interpretation Triglycerides LDL Cholesterol Direct HDL Cholesterol Free T4 PTH Intact Urine WBC (Auto) Urine Creatinine Salicylates Acetaminophen Crossmatch 03/18/19 03/18/19 03/18/19 12:33 12:50 13:19 WBC RBC Hgb Hct MCV MCHC RDW Plt Count Lymph % (Auto) [place] % (Auto) Lymph # [place] # Eos # Seg Neutrophils % Seg Neuts % (Manual) Lymphocytes % (Manual) Monocytes % (Manual) Nucleated RBC % Seg Neutrophils # Seg Neutrophils # Man Lymphocytes # (Manual) Monocytes # (Manual) PT INR D-Dimer Heparin Anti-Xa Level POC ABG pH 7.282 L ABG pH POC ABG pCO2 POC ABG pO2 67 L ABG pO2 ABG HCO3 ABG O2 Saturation ABG Base Excess ABG Hemoglobin Oxyhemoglobin Sodium Potassium Chloride Carbon Dioxide BUN Creatinine Glucose POC Glucose 129 H Lactic Acid 3.30 H* Calcium Ionized Calcium Phosphorus Magnesium Iron TIBC Ferritin Total Bilirubin Direct Bilirubin AST ALT Alkaline Phosphatase Total Creatine Kinase CK-MB (CK-2) Troponin T C-Reactive Protein Serum Total Protein Total Protein Albumin Nhpqm-6-Vbcrxngur Xwzwx-2-Muxxsidcc PEP Interpretation Triglycerides LDL Cholesterol Direct HDL Cholesterol Free T4 PTH Intact Urine WBC (Auto) Urine Creatinine Salicylates Acetaminophen Crossmatch 03/18/19 03/18/19 03/18/19 13:19 16:50 18:11 WBC RBC Hgb Hct MCV MCHC RDW Plt Count Lymph % (Auto) [place] % (Auto) Lymph # [place] # Eos # Seg Neutrophils % Seg Neuts % (Manual) Lymphocytes % (Manual) Monocytes % (Manual) Nucleated RBC % Seg Neutrophils # Seg Neutrophils # Man Lymphocytes # (Manual) Monocytes # (Manual) PT INR D-Dimer Heparin Anti-Xa Level POC ABG pH ABG pH POC ABG pCO2 POC ABG pO2 59 L ABG pO2 ABG HCO3 ABG O2 Saturation ABG Base Excess ABG Hemoglobin Oxyhemoglobin Sodium Potassium Chloride Carbon Dioxide BUN Creatinine Glucose POC Glucose 151 H Lactic Acid Calcium 4.2 L* Ionized Calcium Phosphorus Magnesium Iron TIBC Ferritin Total Bilirubin Direct Bilirubin AST ALT Alkaline Phosphatase Total Creatine Kinase 302919 H CK-MB (CK-2) Troponin T C-Reactive Protein Serum Total Protein Total Protein Albumin Gkrey-2-Wtyzsdvfp Hdkhb-7-Dmnehxtwr PEP Interpretation Triglycerides LDL Cholesterol Direct HDL Cholesterol Free T4 PTH Intact Urine WBC (Auto) Urine Creatinine Salicylates Acetaminophen Crossmatch 03/18/19 03/18/19 03/19/19 18:20 23:39 01:42 WBC RBC Hgb Hct MCV MCHC RDW Plt Count Lymph % (Auto) [place] % (Auto) Lymph # [place] # Eos # Seg Neutrophils % Seg Neuts % (Manual) Lymphocytes % (Manual) Monocytes % (Manual) Nucleated RBC % Seg Neutrophils # Seg Neutrophils # Man Lymphocytes # (Manual) Monocytes # (Manual) PT INR D-Dimer Heparin Anti-Xa Level POC ABG pH 7.345 L ABG pH 7.285 L POC ABG pCO2 POC ABG pO2 59 L ABG pO2 44.0 L ABG HCO3 ABG O2 Saturation 70.9 L ABG Base Excess -5.7 L ABG Hemoglobin 11.9 L Oxyhemoglobin 69.6 L Sodium Potassium Chloride Carbon Dioxide BUN Creatinine Glucose POC Glucose 152 H Lactic Acid Calcium Ionized Calcium Phosphorus Magnesium Iron TIBC Ferritin Total Bilirubin Direct Bilirubin AST ALT Alkaline Phosphatase Total Creatine Kinase CK-MB (CK-2) Troponin T C-Reactive Protein Serum Total Protein Total Protein Albumin Vnjpq-5-Hilgwwkba Xjiru-2-Ilvjtvxhf PEP Interpretation Triglycerides LDL Cholesterol Direct HDL Cholesterol Free T4 PTH Intact Urine WBC (Auto) Urine Creatinine Salicylates Acetaminophen Crossmatch 03/19/19 03/19/19 03/19/19 04:00 04:00 05:35 WBC 36.5 H RBC Hgb Hct MCV MCHC RDW 15.8 H Plt Count 35 L Lymph % (Auto) [place] % (Auto) Lymph # [place] # Eos # Seg Neutrophils % Seg Neuts % (Manual) Lymphocytes % (Manual) Monocytes % (Manual) Nucleated RBC % Seg Neutrophils # Seg Neutrophils # Man Lymphocytes # (Manual) Monocytes # (Manual) PT INR D-Dimer Heparin Anti-Xa Level POC ABG pH ABG pH 7.265 L POC ABG pCO2 POC ABG pO2 ABG pO2 35.4 L* ABG HCO3 ABG O2 Saturation 54.4 L ABG Base Excess -6.7 L ABG Hemoglobin 12.9 L Oxyhemoglobin 53.4 L Sodium 132 L Potassium 5.7 H Chloride 89.8 L Carbon Dioxide 19 L BUN 62 H Creatinine 6.4 H Glucose 151 H POC Glucose Lactic Acid Calcium 5.2 L* D Ionized Calcium Phosphorus Magnesium Iron TIBC Ferritin Total Bilirubin 7.80 H Direct Bilirubin AST 682 H ALT 130 H Alkaline Phosphatase 167 H Total Creatine Kinase CK-MB (CK-2) Troponin T C-Reactive Protein Serum Total Protein Total Protein 4.8 L Albumin 2.3 L Knree-3-Qtpughicq Udznu-7-Zaxqzbebz PEP Interpretation Triglycerides LDL Cholesterol Direct HDL Cholesterol Free T4 PTH Intact Urine WBC (Auto) Urine Creatinine Salicylates Acetaminophen Crossmatch 03/19/19 03/19/19 03/19/19 05:49 09:16 09:50 WBC RBC Hgb Hct MCV MCHC RDW Plt Count Lymph % (Auto) [place] % (Auto) Lymph # [place] # Eos # Seg Neutrophils % Seg Neuts % (Manual) Lymphocytes % (Manual) Monocytes % (Manual) Nucleated RBC % Seg Neutrophils # Seg Neutrophils # Man Lymphocytes # (Manual) Monocytes # (Manual) PT INR D-Dimer Heparin Anti-Xa Level POC ABG pH 7.222 L ABG pH POC ABG pCO2 56.6 H POC ABG pO2 ABG pO2 ABG HCO3 ABG O2 Saturation ABG Base Excess ABG Hemoglobin Oxyhemoglobin Sodium Potassium Chloride Carbon Dioxide BUN Creatinine Glucose POC Glucose 154 H Lactic Acid 2.70 H* Calcium Ionized Calcium Phosphorus Magnesium Iron TIBC Ferritin Total Bilirubin Direct Bilirubin AST ALT Alkaline Phosphatase Total Creatine Kinase CK-MB (CK-2) Troponin T C-Reactive Protein Serum Total Protein Total Protein Albumin Vfxwk-8-Qynutsrst Fxvqs-4-Irdcanaha PEP Interpretation Triglycerides LDL Cholesterol Direct HDL Cholesterol Free T4 PTH Intact Urine WBC (Auto) Urine Creatinine Salicylates Acetaminophen Crossmatch 03/19/19 03/19/19 03/19/19 09:50 11:28 17:58 WBC RBC Hgb Hct MCV MCHC RDW Plt Count Lymph % (Auto) [place] % (Auto) Lymph # [place] # Eos # Seg Neutrophils % Seg Neuts % (Manual) Lymphocytes % (Manual) Monocytes % (Manual) Nucleated RBC % Seg Neutrophils # Seg Neutrophils # Man Lymphocytes # (Manual) Monocytes # (Manual) PT INR D-Dimer Heparin Anti-Xa Level POC ABG pH 7.250 L ABG pH POC ABG pCO2 52.6 H POC ABG pO2 ABG pO2 ABG HCO3 ABG O2 Saturation ABG Base Excess ABG Hemoglobin Oxyhemoglobin Sodium Potassium Chloride Carbon Dioxide BUN Creatinine Glucose POC Glucose 160 H Lactic Acid Calcium Ionized Calcium Phosphorus Magnesium Iron TIBC Ferritin Total Bilirubin Direct Bilirubin AST ALT Alkaline Phosphatase Total Creatine Kinase 45960 H CK-MB (CK-2) Troponin T C-Reactive Protein Serum Total Protein Total Protein Albumin Pmbns-9-Owznsnzmh Njwnd-2-Orfwbfgln PEP Interpretation Triglycerides LDL Cholesterol Direct HDL Cholesterol Free T4 PTH Intact Urine WBC (Auto) Urine Creatinine Salicylates Acetaminophen Crossmatch 03/19/19 03/19/19 03/20/19 19:48 21:03 02:16 WBC RBC Hgb Hct MCV MCHC RDW Plt Count Lymph % (Auto) [place] % (Auto) Lymph # [place] # Eos # Seg Neutrophils % Seg Neuts % (Manual) Lymphocytes % (Manual) Monocytes % (Manual) Nucleated RBC % Seg Neutrophils # Seg Neutrophils # Man Lymphocytes # (Manual) Monocytes # (Manual) PT INR D-Dimer Heparin Anti-Xa Level POC ABG pH 7.279 L ABG pH POC ABG pCO2 50.3 H POC ABG pO2 129 H ABG pO2 ABG HCO3 ABG O2 Saturation ABG Base Excess ABG Hemoglobin Oxyhemoglobin Sodium Potassium Chloride Carbon Dioxide BUN Creatinine Glucose POC Glucose 119 H 119 H Lactic Acid Calcium Ionized Calcium Phosphorus Magnesium Iron TIBC Ferritin Total Bilirubin Direct Bilirubin AST ALT Alkaline Phosphatase Total Creatine Kinase CK-MB (CK-2) Troponin T C-Reactive Protein Serum Total Protein Total Protein Albumin Ipklh-7-Idawbohcf Pespv-6-Chfbgxenn PEP Interpretation Triglycerides LDL Cholesterol Direct HDL Cholesterol Free T4 PTH Intact Urine WBC (Auto) Urine Creatinine Salicylates Acetaminophen Crossmatch 03/20/19 03/20/19 03/20/19 04:23 05:05 09:30 WBC 36.3 H RBC Hgb Hct MCV MCHC RDW 15.5 H Plt Count 29 L Lymph % (Auto) [place] % (Auto) Lymph # [place] # Eos # Seg Neutrophils % Seg Neuts % (Manual) Lymphocytes % (Manual) Monocytes % (Manual) Nucleated RBC % Seg Neutrophils # Seg Neutrophils # Man Lymphocytes # (Manual) Monocytes # (Manual) PT INR D-Dimer Heparin Anti-Xa Level POC ABG pH ABG pH POC ABG pCO2 POC ABG pO2 280 H ABG pO2 ABG HCO3 ABG O2 Saturation ABG Base Excess ABG Hemoglobin Oxyhemoglobin Sodium Potassium Chloride Carbon Dioxide BUN Creatinine Glucose POC Glucose 115 H Lactic Acid Calcium Ionized Calcium Phosphorus Magnesium Iron TIBC Ferritin Total Bilirubin Direct Bilirubin AST ALT Alkaline Phosphatase Total Creatine Kinase CK-MB (CK-2) Troponin T C-Reactive Protein Serum Total Protein Total Protein Albumin Hiagk-6-Ycwkkzwwm Hwhyd-7-Ucbqeqjjc PEP Interpretation Triglycerides LDL Cholesterol Direct HDL Cholesterol Free T4 PTH Intact Urine WBC (Auto) Urine Creatinine Salicylates Acetaminophen Crossmatch 03/20/19 03/20/19 03/20/19 09:30 09:30 11:34 WBC RBC Hgb Hct MCV MCHC RDW Plt Count Lymph % (Auto) [place] % (Auto) Lymph # [place] # Eos # Seg Neutrophils % Seg Neuts % (Manual) Lymphocytes % (Manual) Monocytes % (Manual) Nucleated RBC % Seg Neutrophils # Seg Neutrophils # Man Lymphocytes # (Manual) Monocytes # (Manual) PT INR D-Dimer Heparin Anti-Xa Level POC ABG pH ABG pH POC ABG pCO2 POC ABG pO2 ABG pO2 ABG HCO3 ABG O2 Saturation ABG Base Excess ABG Hemoglobin Oxyhemoglobin Sodium 131 L Potassium Chloride 92.3 L Carbon Dioxide 20 L BUN 68 H Creatinine 6.1 H Glucose 164 H POC Glucose 141 H Lactic Acid Calcium 5.3 L* Ionized Calcium Phosphorus Magnesium Iron TIBC Ferritin Total Bilirubin 9.50 H Direct Bilirubin AST 381 H ALT 116 H Alkaline Phosphatase 255 H Total Creatine Kinase 85599 H CK-MB (CK-2) Troponin T C-Reactive Protein Serum Total Protein Total Protein 5.1 L Albumin 2.3 L Tikrp-5-Aofeaoqqo Vnvlt-7-Qxglsnvhd PEP Interpretation Triglycerides LDL Cholesterol Direct HDL Cholesterol Free T4 PTH Intact Urine WBC (Auto) Urine Creatinine Salicylates Acetaminophen Crossmatch 03/20/19 03/20/19 03/20/19 14:41 14:45 18:50 WBC RBC Hgb Hct MCV MCHC RDW Plt Count Lymph % (Auto) [place] % (Auto) Lymph # [place] # Eos # Seg Neutrophils % Seg Neuts % (Manual) Lymphocytes % (Manual) Monocytes % (Manual) Nucleated RBC % Seg Neutrophils # Seg Neutrophils # Man Lymphocytes # (Manual) Monocytes # (Manual) PT INR D-Dimer Heparin Anti-Xa Level POC ABG pH ABG pH POC ABG pCO2 POC ABG pO2 ABG pO2 ABG HCO3 ABG O2 Saturation ABG Base Excess ABG Hemoglobin Oxyhemoglobin Sodium Potassium Chloride Carbon Dioxide BUN Creatinine Glucose POC Glucose 117 H Lactic Acid 2.90 H* Calcium Ionized Calcium Phosphorus Magnesium Iron TIBC Ferritin Total Bilirubin Direct Bilirubin AST ALT Alkaline Phosphatase Total Creatine Kinase CK-MB (CK-2) Troponin T C-Reactive Protein 13.30 H Serum Total Protein Total Protein Albumin Esqmj-5-Eofqpxczl Aoqio-6-Guyvfsnxz PEP Interpretation Triglycerides LDL Cholesterol Direct HDL Cholesterol Free T4 PTH Intact Urine WBC (Auto) Urine Creatinine Salicylates Acetaminophen Crossmatch 03/20/19 03/21/19 03/21/19 21:55 04:26 04:26 WBC 37.8 H RBC Hgb Hct MCV MCHC RDW 15.4 H Plt Count 36 L Lymph % (Auto) [place] % (Auto) Lymph # [place] # Eos # Seg Neutrophils % Seg Neuts % (Manual) 93.0 H Lymphocytes % (Manual) 3.0 L Monocytes % (Manual) Nucleated RBC % 1.0 H Seg Neutrophils # 34.6 H Seg Neutrophils # Man 35.2 H Lymphocytes # (Manual) 1.1 L Monocytes # (Manual) PT INR D-Dimer Heparin Anti-Xa Level POC ABG pH ABG pH POC ABG pCO2 POC ABG pO2 ABG pO2 ABG HCO3 ABG O2 Saturation ABG Base Excess ABG Hemoglobin Oxyhemoglobin Sodium 131 L Potassium Chloride 90.7 L Carbon Dioxide 21 L BUN 69 H Creatinine 5.7 H Glucose 170 H POC Glucose 128 H Lactic Acid Calcium 6.1 L D Ionized Calcium Phosphorus Magnesium Iron TIBC Ferritin Total Bilirubin 9.50 H Direct Bilirubin AST 308 H ALT 124 H Alkaline Phosphatase 327 H Total Creatine Kinase 27294 H CK-MB (CK-2) Troponin T C-Reactive Protein Serum Total Protein Total Protein 5.7 L Albumin 2.6 L Djuki-7-Gjnfciyjr Tinvl-0-Oyrpamulv PEP Interpretation Triglycerides LDL Cholesterol Direct HDL Cholesterol Free T4 PTH Intact Urine WBC (Auto) Urine Creatinine Salicylates Acetaminophen Crossmatch 03/21/19 03/21/19 03/21/19 05:17 05:39 08:29 WBC RBC Hgb Hct MCV MCHC RDW Plt Count Lymph % (Auto) [place] % (Auto) Lymph # [place] # Eos # Seg Neutrophils % Seg Neuts % (Manual) Lymphocytes % (Manual) Monocytes % (Manual) Nucleated RBC % Seg Neutrophils # Seg Neutrophils # Man Lymphocytes # (Manual) Monocytes # (Manual) PT INR D-Dimer Heparin Anti-Xa Level POC ABG pH ABG pH POC ABG pCO2 POC ABG pO2 209 H ABG pO2 ABG HCO3 ABG O2 Saturation ABG Base Excess ABG Hemoglobin Oxyhemoglobin Sodium Potassium Chloride Carbon Dioxide BUN Creatinine Glucose POC Glucose 145 H Lactic Acid Calcium Ionized Calcium Phosphorus Magnesium Iron TIBC Ferritin Total Bilirubin Direct Bilirubin AST ALT Alkaline Phosphatase Total Creatine Kinase 71688 H CK-MB (CK-2) Troponin T C-Reactive Protein Serum Total Protein Total Protein Albumin Grgye-7-Gqddvgxux Pwtkv-1-Yvrwprnam PEP Interpretation Triglycerides LDL Cholesterol Direct HDL Cholesterol Free T4 PTH Intact Urine WBC (Auto) Urine Creatinine Salicylates Acetaminophen Crossmatch 03/21/19 03/21/19 03/21/19 08:29 11:43 12:00 WBC RBC Hgb Hct MCV MCHC RDW Plt Count Lymph % (Auto) [place] % (Auto) Lymph # [place] # Eos # Seg Neutrophils % Seg Neuts % (Manual) Lymphocytes % (Manual) Monocytes % (Manual) Nucleated RBC % Seg Neutrophils # Seg Neutrophils # Man Lymphocytes # (Manual) Monocytes # (Manual) PT INR D-Dimer Heparin Anti-Xa Level POC ABG pH ABG pH POC ABG pCO2 POC ABG pO2 ABG pO2 ABG HCO3 ABG O2 Saturation ABG Base Excess ABG Hemoglobin Oxyhemoglobin Sodium Potassium Chloride Carbon Dioxide BUN Creatinine Glucose POC Glucose 123 H Lactic Acid 2.60 H* 2.20 H* Calcium Ionized Calcium Phosphorus Magnesium Iron TIBC Ferritin Total Bilirubin Direct Bilirubin AST ALT Alkaline Phosphatase Total Creatine Kinase CK-MB (CK-2) Troponin T C-Reactive Protein Serum Total Protein Total Protein Albumin Hmozz-0-Fvctesrte Dwaiy-4-Yvbtyvfbd PEP Interpretation Triglycerides LDL Cholesterol Direct HDL Cholesterol Free T4 PTH Intact Urine WBC (Auto) Urine Creatinine Salicylates Acetaminophen Crossmatch 03/21/19 03/21/19 03/21/19 14:11 18:28 19:32 WBC RBC Hgb Hct MCV MCHC RDW Plt Count Lymph % (Auto) [place] % (Auto) Lymph # [place] # Eos # Seg Neutrophils % Seg Neuts % (Manual) Lymphocytes % (Manual) Monocytes % (Manual) Nucleated RBC % Seg Neutrophils # Seg Neutrophils # Man Lymphocytes # (Manual) Monocytes # (Manual) PT INR D-Dimer Heparin Anti-Xa Level POC ABG pH 7.293 L ABG pH POC ABG pCO2 POC ABG pO2 ABG pO2 ABG HCO3 ABG O2 Saturation ABG Base Excess ABG Hemoglobin Oxyhemoglobin Sodium Potassium Chloride Carbon Dioxide BUN Creatinine Glucose POC Glucose 153 H Lactic Acid 2.10 H* Calcium Ionized Calcium Phosphorus Magnesium Iron TIBC Ferritin Total Bilirubin Direct Bilirubin AST ALT Alkaline Phosphatase Total Creatine Kinase CK-MB (CK-2) Troponin T C-Reactive Protein Serum Total Protein Total Protein Albumin Kcxmm-0-Qwpekivgp Twngr-5-Umrdleigz PEP Interpretation Triglycerides LDL Cholesterol Direct HDL Cholesterol Free T4 PTH Intact Urine WBC (Auto) Urine Creatinine Salicylates Acetaminophen Crossmatch 03/21/19 03/22/19 03/22/19 23:38 05:08 05:51 WBC RBC Hgb Hct MCV MCHC RDW Plt Count Lymph % (Auto) [place] % (Auto) Lymph # [place] # Eos # Seg Neutrophils % Seg Neuts % (Manual) Lymphocytes % (Manual) Monocytes % (Manual) Nucleated RBC % Seg Neutrophils # Seg Neutrophils # Man Lymphocytes # (Manual) Monocytes # (Manual) PT INR D-Dimer Heparin Anti-Xa Level POC ABG pH 7.283 L ABG pH POC ABG pCO2 POC ABG pO2 53 L ABG pO2 ABG HCO3 ABG O2 Saturation ABG Base Excess ABG Hemoglobin Oxyhemoglobin Sodium Potassium Chloride Carbon Dioxide BUN Creatinine Glucose POC Glucose 149 H 131 H Lactic Acid Calcium Ionized Calcium Phosphorus Magnesium Iron TIBC Ferritin Total Bilirubin Direct Bilirubin AST ALT Alkaline Phosphatase Total Creatine Kinase CK-MB (CK-2) Troponin T C-Reactive Protein Serum Total Protein Total Protein Albumin Dgmbq-2-Duuljbvdb Euzgm-2-Mhnsvyjim PEP Interpretation Triglycerides LDL Cholesterol Direct HDL Cholesterol Free T4 PTH Intact Urine WBC (Auto) Urine Creatinine Salicylates Acetaminophen Crossmatch 03/22/19 03/22/19 03/22/19 08:00 08:00 18:19 WBC 36.7 H RBC Hgb 11.0 L Hct 33.5 L MCV MCHC RDW 15.5 H Plt Count 43 L Lymph % (Auto) [place] % (Auto) Lymph # [place] # Eos # Seg Neutrophils % Seg Neuts % (Manual) 87.0 H Lymphocytes % (Manual) 7.0 L Monocytes % (Manual) Nucleated RBC % Seg Neutrophils # Seg Neutrophils # Man 31.9 H Lymphocytes # (Manual) Monocytes # (Manual) PT INR D-Dimer Heparin Anti-Xa Level POC ABG pH ABG pH POC ABG pCO2 46.4 H POC ABG pO2 108 H ABG pO2 ABG HCO3 ABG O2 Saturation ABG Base Excess ABG Hemoglobin Oxyhemoglobin Sodium 132 L Potassium 5.6 H Chloride 89.6 L Carbon Dioxide 20 L BUN 101 H Creatinine 7.4 H Glucose 124 H POC Glucose Lactic Acid Calcium 5.2 L* Ionized Calcium Phosphorus Magnesium Iron TIBC Ferritin Total Bilirubin 2.80 H Direct Bilirubin AST 119 H ALT 86 H Alkaline Phosphatase 245 H Total Creatine Kinase CK-MB (CK-2) Troponin T C-Reactive Protein Serum Total Protein Total Protein 5.6 L Albumin 2.5 L Rxowp-6-Grgfctwsv Llmgh-0-Fiscdojne PEP Interpretation Triglycerides LDL Cholesterol Direct HDL Cholesterol Free T4 PTH Intact Urine WBC (Auto) Urine Creatinine Salicylates Acetaminophen Crossmatch 03/22/19 03/23/19 03/23/19 20:37 04:49 05:28 WBC 35.9 H RBC Hgb 10.8 L Hct 33.2 L MCV MCHC RDW 15.5 H Plt Count 49 L Lymph % (Auto) [place] % (Auto) Lymph # [place] # Eos # Seg Neutrophils % Seg Neuts % (Manual) 81.0 H Lymphocytes % (Manual) 3.5 L Monocytes % (Manual) Nucleated RBC % Seg Neutrophils # Seg Neutrophils # Man 29.1 H Lymphocytes # (Manual) Monocytes # (Manual) 1.4 H PT INR D-Dimer Heparin Anti-Xa Level POC ABG pH 7.296 L ABG pH POC ABG pCO2 46.2 H POC ABG pO2 ABG pO2 ABG HCO3 ABG O2 Saturation ABG Base Excess ABG Hemoglobin Oxyhemoglobin Sodium 129 L Potassium 5.2 H Chloride 91.1 L Carbon Dioxide BUN 91 H Creatinine 6.6 H Glucose 190 H POC Glucose Lactic Acid Calcium 5.3 L* Ionized Calcium Phosphorus Magnesium Iron TIBC Ferritin Total Bilirubin 1.80 H Direct Bilirubin AST 80 H ALT 62 H Alkaline Phosphatase 209 H Total Creatine Kinase 9758 H CK-MB (CK-2) Troponin T C-Reactive Protein Serum Total Protein Total Protein 5.2 L Albumin 2.2 L Piqzt-8-Elnmafqfk Brssn-3-Vrxbspctq PEP Interpretation Triglycerides LDL Cholesterol Direct HDL Cholesterol Free T4 PTH Intact Urine WBC (Auto) Urine Creatinine Salicylates Acetaminophen Crossmatch 03/23/19 03/23/19 03/23/19 05:28 05:31 11:33 WBC 29.7 H RBC 3.59 L Hgb 10.1 L Hct 31.1 L MCV MCHC RDW 15.4 H Plt Count 47 L Lymph % (Auto) [place] % (Auto) Lymph # [place] # Eos # Seg Neutrophils % Seg Neuts % (Manual) 89.0 H Lymphocytes % (Manual) 6.0 L Monocytes % (Manual) Nucleated RBC % 1.0 H Seg Neutrophils # Seg Neutrophils # Man 26.4 H Lymphocytes # (Manual) Monocytes # (Manual) PT INR D-Dimer Heparin Anti-Xa Level POC ABG pH ABG pH POC ABG pCO2 POC ABG pO2 ABG pO2 ABG HCO3 ABG O2 Saturation ABG Base Excess ABG Hemoglobin Oxyhemoglobin Sodium Potassium Chloride Carbon Dioxide BUN Creatinine Glucose POC Glucose 122 H 113 H Lactic Acid Calcium Ionized Calcium Phosphorus Magnesium Iron TIBC Ferritin Total Bilirubin Direct Bilirubin AST ALT Alkaline Phosphatase Total Creatine Kinase CK-MB (CK-2) Troponin T C-Reactive Protein Serum Total Protein Total Protein Albumin Slpkn-7-Yirciiaku Fnwsa-2-Zyzspocky PEP Interpretation Triglycerides LDL Cholesterol Direct HDL Cholesterol Free T4 PTH Intact Urine WBC (Auto) Urine Creatinine Salicylates Acetaminophen Crossmatch 03/23/19 03/24/19 03/24/19 17:47 00:00 04:50 WBC 35.0 H RBC Hgb 10.4 L Hct 32.4 L MCV MCHC RDW Plt Count 60 L Lymph % (Auto) [place] % (Auto) Lymph # [place] # Eos # Seg Neutrophils % Seg Neuts % (Manual) 93.0 H Lymphocytes % (Manual) 5.0 L Monocytes % (Manual) Nucleated RBC % 7.0 H Seg Neutrophils # Seg Neutrophils # Man 32.6 H Lymphocytes # (Manual) Monocytes # (Manual) PT INR D-Dimer Heparin Anti-Xa Level POC ABG pH ABG pH POC ABG pCO2 POC ABG pO2 ABG pO2 ABG HCO3 ABG O2 Saturation ABG Base Excess ABG Hemoglobin Oxyhemoglobin Sodium Potassium Chloride Carbon Dioxide BUN Creatinine Glucose POC Glucose 111 H 108 H Lactic Acid Calcium Ionized Calcium Phosphorus Magnesium Iron TIBC Ferritin Total Bilirubin Direct Bilirubin AST ALT Alkaline Phosphatase Total Creatine Kinase CK-MB (CK-2) Troponin T C-Reactive Protein Serum Total Protein Total Protein Albumin Asaox-0-Vjipdtezl Ukeye-0-Grvapazgx PEP Interpretation Triglycerides LDL Cholesterol Direct HDL Cholesterol Free T4 PTH Intact Urine WBC (Auto) Urine Creatinine Salicylates Acetaminophen Crossmatch 03/24/19 03/24/19 03/24/19 04:50 05:06 12:55 WBC RBC Hgb Hct MCV MCHC RDW Plt Count Lymph % (Auto) [place] % (Auto) Lymph # [place] # Eos # Seg Neutrophils % Seg Neuts % (Manual) Lymphocytes % (Manual) Monocytes % (Manual) Nucleated RBC % Seg Neutrophils # Seg Neutrophils # Man Lymphocytes # (Manual) Monocytes # (Manual) PT INR D-Dimer Heparin Anti-Xa Level POC ABG pH ABG pH POC ABG pCO2 POC ABG pO2 ABG pO2 ABG HCO3 ABG O2 Saturation ABG Base Excess ABG Hemoglobin Oxyhemoglobin Sodium 134 L Potassium 5.1 H Chloride 95.3 L Carbon Dioxide 21 L BUN 85 H Creatinine 6.4 H Glucose 109 H POC Glucose 112 H 110 H Lactic Acid Calcium 5.8 L* Ionized Calcium Phosphorus Magnesium Iron TIBC Ferritin Total Bilirubin Direct Bilirubin AST ALT Alkaline Phosphatase Total Creatine Kinase 5747 H CK-MB (CK-2) Troponin T C-Reactive Protein Serum Total Protein Total Protein Albumin Kusqd-1-Qrbjvdcqz Dmyix-1-Jyejtcdzw PEP Interpretation Triglycerides LDL Cholesterol Direct HDL Cholesterol Free T4 PTH Intact Urine WBC (Auto) Urine Creatinine Salicylates Acetaminophen Crossmatch 03/24/19 03/25/19 03/25/19 23:29 05:00 05:00 WBC RBC Hgb Hct MCV MCHC RDW Plt Count Lymph % (Auto) [place] % (Auto) Lymph # [place] # Eos # Seg Neutrophils % Seg Neuts % (Manual) Lymphocytes % (Manual) Monocytes % (Manual) Nucleated RBC % Seg Neutrophils # Seg Neutrophils # Man Lymphocytes # (Manual) Monocytes # (Manual) PT INR D-Dimer Heparin Anti-Xa Level POC ABG pH ABG pH POC ABG pCO2 POC ABG pO2 ABG pO2 ABG HCO3 ABG O2 Saturation ABG Base Excess ABG Hemoglobin Oxyhemoglobin Sodium 133 L Potassium Chloride 94.0 L Carbon Dioxide 21 L BUN 81 H Creatinine 6.4 H Glucose POC Glucose 109 H Lactic Acid Calcium 5.5 L* Ionized Calcium Phosphorus Magnesium Iron TIBC Ferritin Total Bilirubin Direct Bilirubin AST 80 H ALT Alkaline Phosphatase 202 H Total Creatine Kinase 3589 H CK-MB (CK-2) Troponin T C-Reactive Protein Serum Total Protein Total Protein 5.3 L Albumin 2.4 L Igmzi-7-Pxtzthfoc Wplkw-3-Yfzyfknrr PEP Interpretation Triglycerides LDL Cholesterol Direct HDL Cholesterol Free T4 PTH Intact 329.9 H Urine WBC (Auto) Urine Creatinine Salicylates Acetaminophen Crossmatch 03/25/19 03/25/19 03/26/19 05:00 06:30 04:30 WBC 23.3 H RBC 3.61 L Hgb 10.2 L Hct 31.2 L MCV MCHC RDW Plt Count 57 L Lymph % (Auto) [place] % (Auto) Lymph # [place] # Eos # Seg Neutrophils % Seg Neuts % (Manual) 92.0 H Lymphocytes % (Manual) 6.0 L Monocytes % (Manual) Nucleated RBC % Seg Neutrophils # Seg Neutrophils # Man 21.4 H Lymphocytes # (Manual) Monocytes # (Manual) PT INR D-Dimer Heparin Anti-Xa Level POC ABG pH ABG pH 7.326 L POC ABG pCO2 POC ABG pO2 ABG pO2 109.5 H 137.4 H ABG HCO3 18.8 L 18.6 L ABG O2 Saturation ABG Base Excess -4.4 L -6.8 L ABG Hemoglobin 10.1 L 9.9 L Oxyhemoglobin Sodium Potassium Chloride Carbon Dioxide BUN Creatinine Glucose POC Glucose Lactic Acid Calcium Ionized Calcium Phosphorus Magnesium Iron TIBC Ferritin Total Bilirubin Direct Bilirubin AST ALT Alkaline Phosphatase Total Creatine Kinase CK-MB (CK-2) Troponin T C-Reactive Protein Serum Total Protein Total Protein Albumin Promt-5-Mxqvxpfcc Ejxma-3-Qxbavxgmc PEP Interpretation Triglycerides LDL Cholesterol Direct HDL Cholesterol Free T4 PTH Intact Urine WBC (Auto) Urine Creatinine Salicylates Acetaminophen Crossmatch 03/26/19 03/26/19 03/26/19 23:22 Unknown Unknown WBC 19.5 H RBC 3.44 L Hgb 9.8 L Hct 29.9 L MCV MCHC RDW Plt Count 85 L Lymph % (Auto) [place] % (Auto) Lymph # [place] # Eos # Seg Neutrophils % Seg Neuts % (Manual) 95.0 H Lymphocytes % (Manual) 3.0 L Monocytes % (Manual) Nucleated RBC % Seg Neutrophils # Seg Neutrophils # Man 18.5 H Lymphocytes # (Manual) 0.6 L Monocytes # (Manual) PT INR D-Dimer Heparin Anti-Xa Level POC ABG pH ABG pH POC ABG pCO2 POC ABG pO2 ABG pO2 ABG HCO3 ABG O2 Saturation ABG Base Excess ABG Hemoglobin Oxyhemoglobin Sodium 135 L Potassium 5.2 H D Chloride 92.2 L Carbon Dioxide 18 L BUN 109 H Creatinine 8.5 H Glucose 117 H POC Glucose 69 L Lactic Acid Calcium 4.5 L* D Ionized Calcium Phosphorus Magnesium Iron TIBC Ferritin Total Bilirubin Direct Bilirubin AST ALT Alkaline Phosphatase Total Creatine Kinase 4527 H CK-MB (CK-2) Troponin T C-Reactive Protein Serum Total Protein Total Protein Albumin Uewzv-2-Xhokdhsto Zzelu-3-Qacpnmvdt PEP Interpretation Triglycerides LDL Cholesterol Direct HDL Cholesterol Free T4 PTH Intact Urine WBC (Auto) Urine Creatinine Salicylates Acetaminophen Crossmatch 03/27/19 03/27/19 03/27/19 04:30 04:30 09:00 WBC 19.2 H RBC 3.42 L Hgb 9.9 L Hct 30.0 L MCV MCHC RDW Plt Count 84 L Lymph % (Auto) [place] % (Auto) Lymph # [place] # Eos # Seg Neutrophils % Seg Neuts % (Manual) Lymphocytes % (Manual) Monocytes % (Manual) Nucleated RBC % Seg Neutrophils # Seg Neutrophils # Man Lymphocytes # (Manual) Monocytes # (Manual) PT INR D-Dimer Heparin Anti-Xa Level POC ABG pH ABG pH POC ABG pCO2 POC ABG pO2 ABG pO2 ABG HCO3 ABG O2 Saturation ABG Base Excess ABG Hemoglobin Oxyhemoglobin Sodium 135 L Potassium Chloride 93.5 L Carbon Dioxide BUN 84 H Creatinine 7.1 H Glucose POC Glucose Lactic Acid Calcium 5.0 L* Ionized Calcium Phosphorus Magnesium Iron TIBC Ferritin Total Bilirubin Direct Bilirubin AST 78 H ALT Alkaline Phosphatase 135 H Total Creatine Kinase 4677 H CK-MB (CK-2) Troponin T C-Reactive Protein Serum Total Protein Total Protein 4.8 L Albumin 2.3 L Mqfay-0-Hyoirmvpj Lmxzw-0-Srydsxrrv PEP Interpretation Triglycerides 409 H LDL Cholesterol Direct HDL Cholesterol Free T4 PTH Intact Urine WBC (Auto) Urine Creatinine Salicylates Acetaminophen Crossmatch 03/27/19 03/27/19 03/27/19 12:37 14:15 14:15 WBC RBC Hgb 9.7 L Hct 29.5 L MCV MCHC RDW Plt Count 87 L Lymph % (Auto) [place] % (Auto) Lymph # [place] # Eos # Seg Neutrophils % Seg Neuts % (Manual) Lymphocytes % (Manual) Monocytes % (Manual) Nucleated RBC % Seg Neutrophils # Seg Neutrophils # Man Lymphocytes # (Manual) Monocytes # (Manual) PT 15.9 H INR 1.30 H D-Dimer Heparin Anti-Xa Level POC ABG pH ABG pH POC ABG pCO2 POC ABG pO2 ABG pO2 ABG HCO3 ABG O2 Saturation ABG Base Excess ABG Hemoglobin Oxyhemoglobin Sodium Potassium Chloride Carbon Dioxide BUN Creatinine Glucose POC Glucose 129 H Lactic Acid Calcium Ionized Calcium Phosphorus Magnesium Iron TIBC Ferritin Total Bilirubin Direct Bilirubin AST ALT Alkaline Phosphatase Total Creatine Kinase CK-MB (CK-2) Troponin T C-Reactive Protein Serum Total Protein Total Protein Albumin Hjymr-8-Csjdrioky Yjhjh-1-Lhuydsuxk PEP Interpretation Triglycerides LDL Cholesterol Direct HDL Cholesterol Free T4 PTH Intact Urine WBC (Auto) Urine Creatinine Salicylates Acetaminophen Crossmatch 03/27/19 03/27/19 03/27/19 18:00 19:22 19:23 WBC RBC Hgb Hct MCV MCHC RDW Plt Count Lymph % (Auto) [place] % (Auto) Lymph # [place] # Eos # Seg Neutrophils % Seg Neuts % (Manual) Lymphocytes % (Manual) Monocytes % (Manual) Nucleated RBC % Seg Neutrophils # Seg Neutrophils # Man Lymphocytes # (Manual) Monocytes # (Manual) PT INR D-Dimer Heparin Anti-Xa Level < 0.10 L POC ABG pH ABG pH POC ABG pCO2 POC ABG pO2 ABG pO2 ABG HCO3 ABG O2 Saturation ABG Base Excess ABG Hemoglobin Oxyhemoglobin Sodium Potassium Chloride Carbon Dioxide BUN Creatinine Glucose POC Glucose 121 H Lactic Acid Calcium Ionized Calcium Phosphorus Magnesium Iron TIBC Ferritin Total Bilirubin Direct Bilirubin AST ALT Alkaline Phosphatase Total Creatine Kinase 4517 H CK-MB (CK-2) Troponin T C-Reactive Protein Serum Total Protein Total Protein Albumin Ytxry-0-Tcuqwfmim Trgda-0-Knbywmcoz PEP Interpretation Triglycerides LDL Cholesterol Direct HDL Cholesterol Free T4 PTH Intact Urine WBC (Auto) Urine Creatinine Salicylates Acetaminophen Crossmatch 03/27/19 03/27/19 03/28/19 22:10 23:52 03:49 WBC RBC Hgb Hct MCV MCHC RDW Plt Count Lymph % (Auto) [place] % (Auto) Lymph # [place] # Eos # Seg Neutrophils % Seg Neuts % (Manual) Lymphocytes % (Manual) Monocytes % (Manual) Nucleated RBC % Seg Neutrophils # Seg Neutrophils # Man Lymphocytes # (Manual) Monocytes # (Manual) PT INR D-Dimer Heparin Anti-Xa Level POC ABG pH 7.338 L ABG pH POC ABG pCO2 33.1 L POC ABG pO2 ABG pO2 ABG HCO3 ABG O2 Saturation ABG Base Excess ABG Hemoglobin Oxyhemoglobin Sodium Potassium Chloride Carbon Dioxide BUN Creatinine Glucose POC Glucose 113 H 117 H Lactic Acid Calcium Ionized Calcium Phosphorus Magnesium Iron TIBC Ferritin Total Bilirubin Direct Bilirubin AST ALT Alkaline Phosphatase Total Creatine Kinase CK-MB (CK-2) Troponin T C-Reactive Protein Serum Total Protein Total Protein Albumin Cclcf-6-Kolmoqjdx Kmpie-4-Svibcnvgb PEP Interpretation Triglycerides LDL Cholesterol Direct HDL Cholesterol Free T4 PTH Intact Urine WBC (Auto) Urine Creatinine Salicylates Acetaminophen Crossmatch 03/28/19 03/28/19 03/28/19 05:13 05:13 06:18 WBC RBC Hgb Hct MCV MCHC RDW Plt Count Lymph % (Auto) [place] % (Auto) Lymph # [place] # Eos # Seg Neutrophils % Seg Neuts % (Manual) Lymphocytes % (Manual) Monocytes % (Manual) Nucleated RBC % Seg Neutrophils # Seg Neutrophils # Man Lymphocytes # (Manual) Monocytes # (Manual) PT INR D-Dimer Heparin Anti-Xa Level 0.23 L POC ABG pH ABG pH POC ABG pCO2 POC ABG pO2 ABG pO2 ABG HCO3 ABG O2 Saturation ABG Base Excess ABG Hemoglobin Oxyhemoglobin Sodium 135 L Potassium 5.5 H D Chloride 95.1 L Carbon Dioxide 16 L D BUN 129 H Creatinine 9.3 H Glucose 158 H POC Glucose 202 H Lactic Acid Calcium 4.0 L* D Ionized Calcium Phosphorus 12.40 H Magnesium Iron TIBC Ferritin Total Bilirubin Direct Bilirubin AST ALT Alkaline Phosphatase Total Creatine Kinase 4266 H CK-MB (CK-2) Troponin T C-Reactive Protein Serum Total Protein Total Protein Albumin Mfoqg-1-Yzunvdpbg Vxcuj-2-Szcjrxzvc PEP Interpretation Triglycerides LDL Cholesterol Direct HDL Cholesterol Free T4 PTH Intact Urine WBC (Auto) Urine Creatinine Salicylates Acetaminophen Crossmatch 03/28/19 03/28/19 03/28/19 08:25 10:00 12:00 WBC RBC Hgb 4.9 L* D Hct 15.4 L* D MCV MCHC RDW Plt Count Lymph % (Auto) [place] % (Auto) Lymph # [place] # Eos # Seg Neutrophils % Seg Neuts % (Manual) Lymphocytes % (Manual) Monocytes % (Manual) Nucleated RBC % Seg Neutrophils # Seg Neutrophils # Man Lymphocytes # (Manual) Monocytes # (Manual) PT 17.9 H INR 1.52 H D-Dimer 4845.98 H Heparin Anti-Xa Level POC ABG pH ABG pH POC ABG pCO2 POC ABG pO2 ABG pO2 ABG HCO3 ABG O2 Saturation ABG Base Excess ABG Hemoglobin Oxyhemoglobin Sodium Potassium Chloride Carbon Dioxide BUN Creatinine Glucose POC Glucose Lactic Acid Calcium Ionized Calcium Phosphorus Magnesium Iron TIBC Ferritin Total Bilirubin Direct Bilirubin AST ALT Alkaline Phosphatase Total Creatine Kinase CK-MB (CK-2) Troponin T C-Reactive Protein Serum Total Protein Total Protein Albumin Qazrh-8-Phzmytytf Uldku-5-Wnetyruge PEP Interpretation Triglycerides LDL Cholesterol Direct HDL Cholesterol Free T4 PTH Intact Urine WBC (Auto) Urine Creatinine Salicylates Acetaminophen Crossmatch See Detail 03/28/19 03/28/19 03/28/19 12:28 14:10 17:43 WBC RBC Hgb 5.9 L* Hct 18.3 L* MCV MCHC RDW Plt Count Lymph % (Auto) [place] % (Auto) Lymph # [place] # Eos # Seg Neutrophils % Seg Neuts % (Manual) Lymphocytes % (Manual) Monocytes % (Manual) Nucleated RBC % Seg Neutrophils # Seg Neutrophils # Man Lymphocytes # (Manual) Monocytes # (Manual) PT INR D-Dimer Heparin Anti-Xa Level POC ABG pH ABG pH POC ABG pCO2 POC ABG pO2 ABG pO2 ABG HCO3 ABG O2 Saturation ABG Base Excess ABG Hemoglobin Oxyhemoglobin Sodium Potassium Chloride Carbon Dioxide BUN Creatinine Glucose POC Glucose 153 H 159 H Lactic Acid Calcium Ionized Calcium Phosphorus Magnesium Iron TIBC Ferritin Total Bilirubin Direct Bilirubin AST ALT Alkaline Phosphatase Total Creatine Kinase CK-MB (CK-2) Troponin T C-Reactive Protein Serum Total Protein Total Protein Albumin Qmotb-5-Keotusxvi Kxmxa-7-Tyyzgratn PEP Interpretation Triglycerides LDL Cholesterol Direct HDL Cholesterol Free T4 PTH Intact Urine WBC (Auto) Urine Creatinine Salicylates Acetaminophen Crossmatch 03/28/19 03/28/19 03/28/19 18:10 Unknown 23:59 WBC 24.8 H RBC 3.42 L Hgb 10.2 L D Hct 31.1 L D MCV MCHC RDW 15.4 H Plt Count 54 L Lymph % (Auto) Finney % (Auto) Lymph # Finney # Eos # Seg Neutrophils % Seg Neuts % (Manual) 91.0 H Lymphocytes % (Manual) 8.0 L Monocytes % (Manual) Nucleated RBC % Seg Neutrophils # Seg Neutrophils # Man 22.6 H Lymphocytes # (Manual) Monocytes # (Manual) PT INR D-Dimer Heparin Anti-Xa Level POC ABG pH ABG pH POC ABG pCO2 POC ABG pO2 ABG pO2 ABG HCO3 ABG O2 Saturation ABG Base Excess ABG Hemoglobin Oxyhemoglobin Sodium Potassium 5.7 H Chloride Carbon Dioxide BUN Creatinine Glucose POC Glucose 107 H Lactic Acid Calcium Ionized Calcium Phosphorus Magnesium Iron TIBC Ferritin Total Bilirubin Direct Bilirubin AST ALT Alkaline Phosphatase Total Creatine Kinase CK-MB (CK-2) Troponin T C-Reactive Protein Serum Total Protein Total Protein Albumin Fgumo-2-Wfuenyukl Jizgq-0-Zegflqpiq PEP Interpretation Triglycerides LDL Cholesterol Direct HDL Cholesterol Free T4 PTH Intact Urine WBC (Auto) Urine Creatinine Salicylates Acetaminophen Crossmatch 03/29/19 03/29/19 03/29/19 04:29 05:46 06:22 WBC RBC Hgb 8.6 L Hct 25.7 L MCV MCHC RDW Plt Count 93 L Lymph % (Auto) [place] % (Auto) Lymph # [place] # Eos # Seg Neutrophils % Seg Neuts % (Manual) Lymphocytes % (Manual) Monocytes % (Manual) Nucleated RBC % Seg Neutrophils # Seg Neutrophils # Man Lymphocytes # (Manual) Monocytes # (Manual) PT INR D-Dimer Heparin Anti-Xa Level POC ABG pH ABG pH POC ABG pCO2 32.2 L POC ABG pO2 ABG pO2 ABG HCO3 ABG O2 Saturation ABG Base Excess ABG Hemoglobin Oxyhemoglobin Sodium Potassium Chloride Carbon Dioxide BUN Creatinine Glucose POC Glucose 113 H Lactic Acid Calcium Ionized Calcium Phosphorus Magnesium Iron TIBC Ferritin Total Bilirubin Direct Bilirubin AST ALT Alkaline Phosphatase Total Creatine Kinase CK-MB (CK-2) Troponin T C-Reactive Protein Serum Total Protein Total Protein Albumin Spvxo-5-Qpbbjtflb Inrlj-1-Wslnxtozf PEP Interpretation Triglycerides LDL Cholesterol Direct HDL Cholesterol Free T4 PTH Intact Urine WBC (Auto) Urine Creatinine Salicylates Acetaminophen Crossmatch 03/29/19 03/29/19 03/29/19 06:22 06:22 06:22 WBC 23.2 H RBC 2.91 L Hgb 8.6 L Hct 25.8 L MCV MCHC RDW Plt Count 91 L Lymph % (Auto) [place] % (Auto) Lymph # [place] # Eos # Seg Neutrophils % Seg Neuts % (Manual) Lymphocytes % (Manual) Monocytes % (Manual) Nucleated RBC % Seg Neutrophils # Seg Neutrophils # Man Lymphocytes # (Manual) Monocytes # (Manual) PT INR D-Dimer Heparin Anti-Xa Level POC ABG pH ABG pH POC ABG pCO2 POC ABG pO2 ABG pO2 ABG HCO3 ABG O2 Saturation ABG Base Excess ABG Hemoglobin Oxyhemoglobin Sodium 133 L Potassium Chloride 93.8 L Carbon Dioxide 18 L BUN 109 H Creatinine 7.4 H Glucose 124 H POC Glucose Lactic Acid Calcium 4.6 L* Ionized Calcium Phosphorus Magnesium Iron TIBC Ferritin Total Bilirubin Direct Bilirubin AST ALT Alkaline Phosphatase Total Creatine Kinase 3401 H CK-MB (CK-2) Troponin T C-Reactive Protein Serum Total Protein Total Protein Albumin Yywdu-0-Klvnlcbrw Utgtu-1-Godffrsum PEP Interpretation Triglycerides 309 H LDL Cholesterol Direct HDL Cholesterol Free T4 PTH Intact Urine WBC (Auto) Urine Creatinine Salicylates Acetaminophen Crossmatch 03/29/19 03/29/19 03/29/19 11:48 11:48 18:24 WBC RBC Hgb 7.8 L Hct 23.2 L MCV MCHC RDW Plt Count Lymph % (Auto) [place] % (Auto) Lymph # [place] # Eos # Seg Neutrophils % Seg Neuts % (Manual) Lymphocytes % (Manual) Monocytes % (Manual) Nucleated RBC % Seg Neutrophils # Seg Neutrophils # Man Lymphocytes # (Manual) Monocytes # (Manual) PT 15.3 H INR 1.24 H D-Dimer Heparin Anti-Xa Level POC ABG pH ABG pH POC ABG pCO2 POC ABG pO2 ABG pO2 ABG HCO3 ABG O2 Saturation ABG Base Excess ABG Hemoglobin Oxyhemoglobin Sodium Potassium Chloride Carbon Dioxide BUN Creatinine Glucose POC Glucose 122 H Lactic Acid Calcium Ionized Calcium Phosphorus Magnesium Iron TIBC Ferritin Total Bilirubin Direct Bilirubin AST ALT Alkaline Phosphatase Total Creatine Kinase CK-MB (CK-2) Troponin T C-Reactive Protein Serum Total Protein Total Protein Albumin [place]-7-Uinudxajs Uigwx-9-Vuxrwdhqu PEP Interpretation Triglycerides LDL Cholesterol Direct HDL Cholesterol Free T4 PTH Intact Urine WBC (Auto) Urine Creatinine Salicylates Acetaminophen Crossmatch 03/30/19 03/30/19 03/30/19 00:40 04:31 05:04 WBC RBC Hgb 7.6 L Hct 23.0 L MCV MCHC RDW Plt Count Lymph % (Auto) [place] % (Auto) Lymph # [place] # Eos # Seg Neutrophils % Seg Neuts % (Manual) Lymphocytes % (Manual) Monocytes % (Manual) Nucleated RBC % Seg Neutrophils # Seg Neutrophils # Man Lymphocytes # (Manual) Monocytes # (Manual) PT INR D-Dimer Heparin Anti-Xa Level POC ABG pH 7.346 L ABG pH POC ABG pCO2 POC ABG pO2 62 L ABG pO2 ABG HCO3 ABG O2 Saturation ABG Base Excess ABG Hemoglobin Oxyhemoglobin Sodium Potassium Chloride Carbon Dioxide BUN 79 H Creatinine 6.4 H Glucose POC Glucose Lactic Acid Calcium 6.1 L D Ionized Calcium Phosphorus Magnesium Iron TIBC Ferritin Total Bilirubin Direct Bilirubin AST ALT Alkaline Phosphatase Total Creatine Kinase CK-MB (CK-2) Troponin T C-Reactive Protein Serum Total Protein Total Protein Albumin Ddqxs-2-Ifcrimlqk Fiyea-2-Gqwhyvoha PEP Interpretation Triglycerides LDL Cholesterol Direct HDL Cholesterol Free T4 PTH Intact Urine WBC (Auto) Urine Creatinine Salicylates Acetaminophen Crossmatch 03/30/19 03/30/19 03/30/19 08:45 12:09 22:43 WBC 14.3 H RBC 2.33 L Hgb 7.0 L 7.4 L Hct 21.0 L 22.3 L MCV MCHC RDW 15.6 H Plt Count 135 L Lymph % (Auto) [place] % (Auto) Lymph # [place] # Eos # Seg Neutrophils % Seg Neuts % (Manual) Lymphocytes % (Manual) Monocytes % (Manual) Nucleated RBC % Seg Neutrophils # Seg Neutrophils # Man Lymphocytes # (Manual) Monocytes # (Manual) PT INR D-Dimer Heparin Anti-Xa Level POC ABG pH ABG pH POC ABG pCO2 POC ABG pO2 ABG pO2 ABG HCO3 ABG O2 Saturation ABG Base Excess ABG Hemoglobin Oxyhemoglobin Sodium Potassium Chloride Carbon Dioxide BUN Creatinine Glucose POC Glucose Lactic Acid Calcium Ionized Calcium 3.7 L Phosphorus Magnesium Iron TIBC Ferritin Total Bilirubin Direct Bilirubin AST ALT Alkaline Phosphatase Total Creatine Kinase CK-MB (CK-2) Troponin T C-Reactive Protein Serum Total Protein Total Protein Albumin Wjhoa-9-Ynjtygdnc Earoi-7-Uydxgydyl PEP Interpretation Triglycerides LDL Cholesterol Direct HDL Cholesterol Free T4 PTH Intact Urine WBC (Auto) Urine Creatinine Salicylates Acetaminophen Crossmatch 03/30/19 03/30/19 03/31/19 23:38 Unknown 04:44 WBC 11.5 H RBC 2.40 L Hgb 7.3 L Hct 21.9 L MCV MCHC RDW 15.4 H Plt Count Lymph % (Auto) 10.6 L [place] % (Auto) Lymph # [place] # Eos # Seg Neutrophils % 81.7 H Seg Neuts % (Manual) Lymphocytes % (Manual) Monocytes % (Manual) Nucleated RBC % Seg Neutrophils # 9.4 H Seg Neutrophils # Man Lymphocytes # (Manual) Monocytes # (Manual) PT INR D-Dimer Heparin Anti-Xa Level POC ABG pH ABG pH POC ABG pCO2 POC ABG pO2 ABG pO2 ABG HCO3 ABG O2 Saturation ABG Base Excess ABG Hemoglobin Oxyhemoglobin Sodium Potassium Chloride Carbon Dioxide BUN Creatinine Glucose POC Glucose 155 H Lactic Acid Calcium Ionized Calcium Phosphorus Magnesium Iron TIBC Ferritin Total Bilirubin Direct Bilirubin 0.4 H AST 63 H ALT Alkaline Phosphatase Total Creatine Kinase CK-MB (CK-2) Troponin T C-Reactive Protein Serum Total Protein Total Protein 4.9 L Albumin 2.2 L Ttknr-2-Tfqynokjp Peroy-4-Wqabfzvbo PEP Interpretation Triglycerides LDL Cholesterol Direct HDL Cholesterol Free T4 PTH Intact Urine WBC (Auto) Urine Creatinine Salicylates Acetaminophen Crossmatch 03/31/19 03/31/19 03/31/19 04:44 05:44 08:20 WBC RBC Hgb Hct MCV MCHC RDW Plt Count Lymph % (Auto) [place] % (Auto) Lymph # [place] # Eos # Seg Neutrophils % Seg Neuts % (Manual) Lymphocytes % (Manual) Monocytes % (Manual) Nucleated RBC % Seg Neutrophils # Seg Neutrophils # Man Lymphocytes # (Manual) Monocytes # (Manual) PT INR D-Dimer Heparin Anti-Xa Level POC ABG pH ABG pH POC ABG pCO2 53.5 H POC ABG pO2 62 L ABG pO2 ABG HCO3 ABG O2 Saturation ABG Base Excess ABG Hemoglobin Oxyhemoglobin Sodium 135 L Potassium Chloride 96.7 L Carbon Dioxide 19 L BUN 94 H Creatinine 7.8 H Glucose POC Glucose Lactic Acid Calcium 5.3 L* Ionized Calcium Phosphorus 8.20 H Magnesium Iron TIBC Ferritin Total Bilirubin Direct Bilirubin 0.4 H AST 60 H ALT Alkaline Phosphatase Total Creatine Kinase CK-MB (CK-2) Troponin T C-Reactive Protein Serum Total Protein Total Protein 4.8 L Albumin 2.1 L Ghskd-8-Jwtfhvifk Eoqyd-4-Bvzjngyar PEP Interpretation Triglycerides LDL Cholesterol Direct HDL Cholesterol Free T4 PTH Intact Urine WBC (Auto) Urine Creatinine Salicylates Acetaminophen Crossmatch 03/31/19 04/01/19 04/01/19 22:14 04:27 04:27 WBC RBC 2.60 L Hgb 8.0 L Hct 24.1 L MCV MCHC RDW 15.7 H Plt Count Lymph % (Auto) 7.9 L [place] % (Auto) Lymph # 0.7 L [place] # Eos # Seg Neutrophils % 83.6 H Seg Neuts % (Manual) Lymphocytes % (Manual) Monocytes % (Manual) Nucleated RBC % Seg Neutrophils # Seg Neutrophils # Man Lymphocytes # (Manual) Monocytes # (Manual) PT INR D-Dimer Heparin Anti-Xa Level POC ABG pH 7.286 L ABG pH POC ABG pCO2 54.7 H POC ABG pO2 179 H ABG pO2 ABG HCO3 ABG O2 Saturation ABG Base Excess ABG Hemoglobin Oxyhemoglobin Sodium Potassium Chloride Carbon Dioxide BUN 68 H Creatinine 6.6 H Glucose POC Glucose Lactic Acid Calcium 6.5 L D Ionized Calcium Phosphorus 7.30 H Magnesium Iron TIBC Ferritin Total Bilirubin Direct Bilirubin AST ALT Alkaline Phosphatase Total Creatine Kinase 1652 H CK-MB (CK-2) Troponin T C-Reactive Protein Serum Total Protein Total Protein Albumin Wqwbf-0-Pmmzuhlnt Yfavq-6-Hzugbxtcr PEP Interpretation Triglycerides LDL Cholesterol Direct HDL Cholesterol Free T4 PTH Intact Urine WBC (Auto) Urine Creatinine Salicylates Acetaminophen Crossmatch 04/01/19 04/01/19 04/01/19 05:14 05:37 18:37 WBC RBC Hgb Hct MCV MCHC RDW Plt Count Lymph % (Auto) [place] % (Auto) Lymph # [place] # Eos # Seg Neutrophils % Seg Neuts % (Manual) Lymphocytes % (Manual) Monocytes % (Manual) Nucleated RBC % Seg Neutrophils # Seg Neutrophils # Man Lymphocytes # (Manual) Monocytes # (Manual) PT INR D-Dimer Heparin Anti-Xa Level POC ABG pH 7.283 L ABG pH POC ABG pCO2 53.4 H POC ABG pO2 241 H ABG pO2 ABG HCO3 ABG O2 Saturation ABG Base Excess ABG Hemoglobin Oxyhemoglobin Sodium Potassium Chloride Carbon Dioxide BUN Creatinine Glucose POC Glucose 111 H 119 H Lactic Acid Calcium Ionized Calcium Phosphorus Magnesium Iron TIBC Ferritin Total Bilirubin Direct Bilirubin AST ALT Alkaline Phosphatase Total Creatine Kinase CK-MB (CK-2) Troponin T C-Reactive Protein Serum Total Protein Total Protein Albumin Kwcii-9-Zkugsaxwv Bqdyf-7-Rkzgzzfhk PEP Interpretation Triglycerides LDL Cholesterol Direct HDL Cholesterol Free T4 PTH Intact Urine WBC (Auto) Urine Creatinine Salicylates Acetaminophen Crossmatch 04/01/19 04/02/19 04/02/19 21:28 04:40 05:03 WBC RBC 2.36 L Hgb 7.2 L Hct 21.9 L MCV MCHC RDW 16.0 H Plt Count Lymph % (Auto) 10.8 L [place] % (Auto) Lymph # 0.8 L [place] # Eos # Seg Neutrophils % 80.3 H Seg Neuts % (Manual) Lymphocytes % (Manual) Monocytes % (Manual) Nucleated RBC % Seg Neutrophils # Seg Neutrophils # Man Lymphocytes # (Manual) Monocytes # (Manual) PT INR D-Dimer Heparin Anti-Xa Level POC ABG pH 7.299 L 7.300 L ABG pH POC ABG pCO2 48.2 H 45.2 H POC ABG pO2 133 H 107 H ABG pO2 ABG HCO3 ABG O2 Saturation ABG Base Excess ABG Hemoglobin Oxyhemoglobin Sodium Potassium Chloride Carbon Dioxide BUN Creatinine Glucose POC Glucose Lactic Acid Calcium Ionized Calcium Phosphorus Magnesium Iron TIBC Ferritin Total Bilirubin Direct Bilirubin AST ALT Alkaline Phosphatase Total Creatine Kinase CK-MB (CK-2) Troponin T C-Reactive Protein Serum Total Protein Total Protein Albumin Puorv-6-Mbiwvgola Lksec-8-Ryilawlqm PEP Interpretation Triglycerides LDL Cholesterol Direct HDL Cholesterol Free T4 PTH Intact Urine WBC (Auto) Urine Creatinine Salicylates Acetaminophen Crossmatch 04/02/19 04/02/19 04/02/19 05:03 05:03 12:15 WBC RBC Hgb 7.4 L Hct 22.6 L MCV MCHC RDW Plt Count Lymph % (Auto) [place] % (Auto) Lymph # [place] # Eos # Seg Neutrophils % Seg Neuts % (Manual) Lymphocytes % (Manual) Monocytes % (Manual) Nucleated RBC % Seg Neutrophils # Seg Neutrophils # Man Lymphocytes # (Manual) Monocytes # (Manual) PT INR D-Dimer Heparin Anti-Xa Level POC ABG pH ABG pH POC ABG pCO2 POC ABG pO2 ABG pO2 ABG HCO3 ABG O2 Saturation ABG Base Excess ABG Hemoglobin Oxyhemoglobin Sodium 136 L Potassium Chloride 97.8 L Carbon Dioxide 18 L BUN 82 H Creatinine 8.2 H Glucose POC Glucose Lactic Acid Calcium 6.7 L Ionized Calcium Phosphorus 7.50 H Magnesium Iron 26 L TIBC 138 L Ferritin 607.0 H Total Bilirubin Direct Bilirubin AST ALT Alkaline Phosphatase Total Creatine Kinase CK-MB (CK-2) Troponin T C-Reactive Protein Serum Total Protein Total Protein Albumin Xocen-1-Vrewbzbwl Eqjrb-2-Fxwyjaofi PEP Interpretation Triglycerides LDL Cholesterol Direct HDL Cholesterol Free T4 PTH Intact Urine WBC (Auto) Urine Creatinine Salicylates Acetaminophen Crossmatch 04/02/19 04/02/19 04/03/19 16:34 17:14 04:18 WBC RBC Hgb Hct MCV MCHC RDW Plt Count Lymph % (Auto) [place] % (Auto) Lymph # [place] # Eos # Seg Neutrophils % Seg Neuts % (Manual) Lymphocytes % (Manual) Monocytes % (Manual) Nucleated RBC % Seg Neutrophils # Seg Neutrophils # Man Lymphocytes # (Manual) Monocytes # (Manual) PT INR D-Dimer Heparin Anti-Xa Level POC ABG pH ABG pH POC ABG pCO2 POC ABG pO2 146 H ABG pO2 ABG HCO3 ABG O2 Saturation ABG Base Excess ABG Hemoglobin Oxyhemoglobin Sodium Potassium Chloride Carbon Dioxide BUN Creatinine Glucose POC Glucose 108 H Lactic Acid Calcium Ionized Calcium Phosphorus Magnesium Iron TIBC Ferritin Total Bilirubin Direct Bilirubin AST ALT Alkaline Phosphatase Total Creatine Kinase CK-MB (CK-2) Troponin T C-Reactive Protein Serum Total Protein Total Protein Albumin Wdwcq-7-Enckleniz Evkhr-8-Lrlnfyown PEP Interpretation Triglycerides LDL Cholesterol Direct HDL Cholesterol Free T4 PTH Intact Urine WBC (Auto) Urine Creatinine Salicylates Acetaminophen Crossmatch See Detail 04/03/19 04/03/19 04/03/19 04:25 08:30 18:24 WBC RBC 2.40 L Hgb 7.3 L Hct 21.9 L MCV MCHC RDW Plt Count Lymph % (Auto) [place] % (Auto) 7.7 H Lymph # 0.9 L [place] # Eos # Seg Neutrophils % 74.6 H Seg Neuts % (Manual) Lymphocytes % (Manual) Monocytes % (Manual) Nucleated RBC % Seg Neutrophils # Seg Neutrophils # Man Lymphocytes # (Manual) Monocytes # (Manual) PT INR D-Dimer Heparin Anti-Xa Level POC ABG pH ABG pH POC ABG pCO2 POC ABG pO2 ABG pO2 ABG HCO3 ABG O2 Saturation ABG Base Excess ABG Hemoglobin Oxyhemoglobin Sodium 136 L Potassium Chloride 97.0 L Carbon Dioxide BUN 58 H Creatinine 7.3 H Glucose POC Glucose 106 H Lactic Acid Calcium 7.5 L Ionized Calcium Phosphorus 5.80 H D Magnesium Iron TIBC Ferritin Total Bilirubin Direct Bilirubin AST ALT Alkaline Phosphatase Total Creatine Kinase CK-MB (CK-2) Troponin T C-Reactive Protein Serum Total Protein Total Protein Albumin Oinsv-8-Xiyvnezck Wehlf-0-Stvajgrld PEP Interpretation Triglycerides LDL Cholesterol Direct HDL Cholesterol Free T4 PTH Intact Urine WBC (Auto) Urine Creatinine Salicylates Acetaminophen Crossmatch 04/03/19 04/04/19 04/04/19 23:43 04:47 04:47 WBC RBC 2.72 L Hgb 8.3 L Hct 24.7 L MCV MCHC RDW 15.6 H Plt Count Lymph % (Auto) [place] % (Auto) 10.1 H Lymph # 0.8 L [place] # Eos # Seg Neutrophils % 71.4 H Seg Neuts % (Manual) Lymphocytes % (Manual) Monocytes % (Manual) Nucleated RBC % Seg Neutrophils # Seg Neutrophils # Man Lymphocytes # (Manual) Monocytes # (Manual) PT INR D-Dimer Heparin Anti-Xa Level POC ABG pH ABG pH POC ABG pCO2 POC ABG pO2 ABG pO2 123.8 H ABG HCO3 ABG O2 Saturation ABG Base Excess -3.0 L ABG Hemoglobin 7.9 L Oxyhemoglobin Sodium 134 L Potassium Chloride 97.9 L Carbon Dioxide BUN 64 H Creatinine 8.1 H Glucose POC Glucose Lactic Acid Calcium 7.2 L Ionized Calcium Phosphorus Magnesium Iron TIBC Ferritin Total Bilirubin Direct Bilirubin AST ALT Alkaline Phosphatase Total Creatine Kinase CK-MB (CK-2) Troponin T C-Reactive Protein Serum Total Protein Total Protein Albumin Zkxqb-8-Rocytodjr Xlgjc-3-Koaaqexut PEP Interpretation Triglycerides LDL Cholesterol Direct HDL Cholesterol Free T4 PTH Intact Urine WBC (Auto) Urine Creatinine Salicylates Acetaminophen Crossmatch 04/04/19 04/04/19 04/04/19 06:07 13:40 18:18 WBC RBC Hgb Hct MCV MCHC RDW Plt Count Lymph % (Auto) [place] % (Auto) Lymph # [place] # Eos # Seg Neutrophils % Seg Neuts % (Manual) Lymphocytes % (Manual) Monocytes % (Manual) Nucleated RBC % Seg Neutrophils # Seg Neutrophils # Man Lymphocytes # (Manual) Monocytes # (Manual) PT INR D-Dimer Heparin Anti-Xa Level POC ABG pH ABG pH POC ABG pCO2 POC ABG pO2 ABG pO2 95.9 H ABG HCO3 ABG O2 Saturation ABG Base Excess -3.0 L ABG Hemoglobin 8.5 L Oxyhemoglobin Sodium Potassium Chloride Carbon Dioxide BUN Creatinine Glucose POC Glucose 107 H 107 H Lactic Acid Calcium Ionized Calcium Phosphorus Magnesium Iron TIBC Ferritin Total Bilirubin Direct Bilirubin AST ALT Alkaline Phosphatase Total Creatine Kinase CK-MB (CK-2) Troponin T C-Reactive Protein Serum Total Protein Total Protein Albumin Gwtzc-5-Qnrhjnuca Ipnbi-6-Bylwyshow PEP Interpretation Triglycerides LDL Cholesterol Direct HDL Cholesterol Free T4 PTH Intact Urine WBC (Auto) Urine Creatinine Salicylates Acetaminophen Crossmatch 04/04/19 04/05/19 04/05/19 21:22 04:09 04:09 WBC RBC 2.76 L Hgb 8.4 L Hct 25.4 L MCV MCHC RDW 15.8 H Plt Count 133 L Lymph % (Auto) [place] % (Auto) 9.6 H Lymph # 0.7 L [place] # Eos # Seg Neutrophils % 72.6 H Seg Neuts % (Manual) Lymphocytes % (Manual) Monocytes % (Manual) Nucleated RBC % Seg Neutrophils # Seg Neutrophils # Man Lymphocytes # (Manual) Monocytes # (Manual) PT INR D-Dimer Heparin Anti-Xa Level POC ABG pH ABG pH POC ABG pCO2 47.2 H POC ABG pO2 137 H ABG pO2 ABG HCO3 ABG O2 Saturation ABG Base Excess ABG Hemoglobin Oxyhemoglobin Sodium 136 L Potassium Chloride Carbon Dioxide BUN 46 H Creatinine 6.7 H Glucose POC Glucose Lactic Acid Calcium 7.7 L Ionized Calcium Phosphorus Magnesium Iron TIBC Ferritin Total Bilirubin Direct Bilirubin AST ALT Alkaline Phosphatase Total Creatine Kinase CK-MB (CK-2) Troponin T C-Reactive Protein Serum Total Protein Total Protein Albumin Sdmgn-8-Docmosoez Dkqov-4-Wpchuugjq PEP Interpretation Triglycerides LDL Cholesterol Direct HDL Cholesterol Free T4 PTH Intact Urine WBC (Auto) Urine Creatinine Salicylates Acetaminophen Crossmatch 04/05/19 04/05/19 04/05/19 05:28 06:14 16:50 WBC RBC Hgb Hct MCV MCHC RDW Plt Count Lymph % (Auto) [place] % (Auto) Lymph # [place] # Eos # Seg Neutrophils % Seg Neuts % (Manual) Lymphocytes % (Manual) Monocytes % (Manual) Nucleated RBC % Seg Neutrophils # Seg Neutrophils # Man Lymphocytes # (Manual) Monocytes # (Manual) PT INR D-Dimer Heparin Anti-Xa Level POC ABG pH ABG pH POC ABG pCO2 POC ABG pO2 67 L ABG pO2 ABG HCO3 ABG O2 Saturation ABG Base Excess ABG Hemoglobin Oxyhemoglobin Sodium Potassium Chloride Carbon Dioxide BUN Creatinine Glucose POC Glucose 108 H Lactic Acid Calcium Ionized Calcium Phosphorus Magnesium Iron TIBC Ferritin Total Bilirubin Direct Bilirubin AST ALT Alkaline Phosphatase Total Creatine Kinase CK-MB (CK-2) Troponin T C-Reactive Protein Serum Total Protein Total Protein Albumin [place]-8-Wfyoskopb Dfqsa-2-Skneyxqjn PEP Interpretation Triglycerides LDL Cholesterol Direct HDL Cholesterol Free T4 PTH Intact Urine WBC (Auto) 40.0 H Urine Creatinine Salicylates Acetaminophen Crossmatch 04/05/19 04/06/19 04/06/19 17:22 00:13 04:44 WBC RBC 2.48 L Hgb 7.5 L Hct 22.9 L MCV MCHC RDW 16.0 H Plt Count 107 L Lymph % (Auto) [place] % (Auto) 10.7 H Lymph # 1.0 L [place] # Eos # Seg Neutrophils % Seg Neuts % (Manual) Lymphocytes % (Manual) Monocytes % (Manual) Nucleated RBC % Seg Neutrophils # Seg Neutrophils # Man Lymphocytes # (Manual) Monocytes # (Manual) PT INR D-Dimer Heparin Anti-Xa Level POC ABG pH ABG pH POC ABG pCO2 POC ABG pO2 ABG pO2 ABG HCO3 ABG O2 Saturation ABG Base Excess ABG Hemoglobin Oxyhemoglobin Sodium Potassium Chloride Carbon Dioxide BUN Creatinine Glucose POC Glucose 118 H 138 H Lactic Acid Calcium Ionized Calcium Phosphorus Magnesium Iron TIBC Ferritin Total Bilirubin Direct Bilirubin AST ALT Alkaline Phosphatase Total Creatine Kinase CK-MB (CK-2) Troponin T C-Reactive Protein Serum Total Protein Total Protein Albumin Loktk-0-Baktuzkmc Pyjkh-0-Hscgeqzsw PEP Interpretation Triglycerides LDL Cholesterol Direct HDL Cholesterol Free T4 PTH Intact Urine WBC (Auto) Urine Creatinine Salicylates Acetaminophen Crossmatch 04/06/19 04/06/19 04/06/19 04:44 05:20 05:23 WBC RBC Hgb Hct MCV MCHC RDW Plt Count Lymph % (Auto) [place] % (Auto) Lymph # [place] # Eos # Seg Neutrophils % Seg Neuts % (Manual) Lymphocytes % (Manual) Monocytes % (Manual) Nucleated RBC % Seg Neutrophils # Seg Neutrophils # Man Lymphocytes # (Manual) Monocytes # (Manual) PT INR D-Dimer Heparin Anti-Xa Level POC ABG pH ABG pH POC ABG pCO2 POC ABG pO2 ABG pO2 104.0 H ABG HCO3 ABG O2 Saturation ABG Base Excess -2.1 L ABG Hemoglobin 7.3 L Oxyhemoglobin Sodium Potassium Chloride Carbon Dioxide BUN 64 H Creatinine 8.2 H Glucose 103 H POC Glucose 118 H Lactic Acid Calcium 7.3 L Ionized Calcium Phosphorus Magnesium Iron TIBC Ferritin Total Bilirubin Direct Bilirubin AST ALT Alkaline Phosphatase Total Creatine Kinase CK-MB (CK-2) Troponin T C-Reactive Protein Serum Total Protein Total Protein Albumin Ayjlc-4-Ykhvoppsm Ilsdj-5-Ybjuqzmss PEP Interpretation Triglycerides LDL Cholesterol Direct HDL Cholesterol Free T4 PTH Intact Urine WBC (Auto) Urine Creatinine Salicylates Acetaminophen Crossmatch 04/06/19 04/07/19 04/07/19 12:02 05:40 05:40 WBC RBC 2.59 L Hgb 7.9 L Hct 23.8 L MCV MCHC RDW 15.8 H Plt Count 89 L Lymph % (Auto) [place] % (Auto) 10.3 H Lymph # 1.1 L [place] # Eos # Seg Neutrophils % Seg Neuts % (Manual) Lymphocytes % (Manual) Monocytes % (Manual) Nucleated RBC % Seg Neutrophils # Seg Neutrophils # Man Lymphocytes # (Manual) Monocytes # (Manual) PT INR D-Dimer Heparin Anti-Xa Level POC ABG pH ABG pH POC ABG pCO2 POC ABG pO2 ABG pO2 ABG HCO3 ABG O2 Saturation ABG Base Excess ABG Hemoglobin Oxyhemoglobin Sodium 136 L Potassium 3.5 L Chloride Carbon Dioxide BUN 46 H Creatinine 6.2 H Glucose POC Glucose 108 H Lactic Acid Calcium 7.9 L Ionized Calcium Phosphorus Magnesium Iron TIBC Ferritin Total Bilirubin Direct Bilirubin AST ALT Alkaline Phosphatase Total Creatine Kinase CK-MB (CK-2) Troponin T C-Reactive Protein Serum Total Protein Total Protein Albumin Mwnnq-2-Mhylyxpyr Ihtwp-5-Jkvvbmdzy PEP Interpretation Triglycerides LDL Cholesterol Direct HDL Cholesterol Free T4 PTH Intact Urine WBC (Auto) Urine Creatinine Salicylates Acetaminophen Crossmatch 04/07/19 04/09/19 04/09/19 12:57 04:28 04:28 WBC RBC 2.85 L Hgb 8.7 L Hct 26.2 L MCV MCHC RDW 15.6 H Plt Count Lymph % (Auto) [place] % (Auto) 10.4 H Lymph # 1.0 L [place] # Eos # Seg Neutrophils % 73.3 H Seg Neuts % (Manual) Lymphocytes % (Manual) Monocytes % (Manual) Nucleated RBC % Seg Neutrophils # Seg Neutrophils # Man Lymphocytes # (Manual) Monocytes # (Manual) PT INR D-Dimer Heparin Anti-Xa Level POC ABG pH ABG pH POC ABG pCO2 POC ABG pO2 107 H ABG pO2 ABG HCO3 ABG O2 Saturation ABG Base Excess ABG Hemoglobin Oxyhemoglobin Sodium Potassium 3.5 L Chloride 97.8 L Carbon Dioxide BUN 62 H Creatinine 8.1 H Glucose POC Glucose Lactic Acid Calcium 8.2 L Ionized Calcium Phosphorus 5.10 H Magnesium Iron TIBC Ferritin Total Bilirubin Direct Bilirubin AST ALT Alkaline Phosphatase Total Creatine Kinase CK-MB (CK-2) Troponin T C-Reactive Protein Serum Total Protein Total Protein Albumin Jygxk-6-Gttzovbqq Mwiek-5-Nzidvvshc PEP Interpretation Triglycerides LDL Cholesterol Direct HDL Cholesterol Free T4 PTH Intact Urine WBC (Auto) Urine Creatinine Salicylates Acetaminophen Crossmatch 04/10/19 04/11/19 04/11/19 18:15 00:25 04:16 WBC 11.5 H RBC 2.91 L Hgb 8.9 L Hct 27.6 L MCV 95 H MCHC RDW 17.5 H Plt Count Lymph % (Auto) [place] % (Auto) Lymph # [place] # Eos # Seg Neutrophils % Seg Neuts % (Manual) 71.0 H Lymphocytes % (Manual) Monocytes % (Manual) 8.0 H Nucleated RBC % Seg Neutrophils # Seg Neutrophils # Man 8.2 H Lymphocytes # (Manual) Monocytes # (Manual) 0.9 H PT INR D-Dimer Heparin Anti-Xa Level POC ABG pH ABG pH POC ABG pCO2 POC ABG pO2 ABG pO2 ABG HCO3 ABG O2 Saturation ABG Base Excess ABG Hemoglobin Oxyhemoglobin Sodium Potassium Chloride Carbon Dioxide BUN Creatinine Glucose POC Glucose 109 H 114 H Lactic Acid Calcium Ionized Calcium Phosphorus Magnesium Iron TIBC Ferritin Total Bilirubin Direct Bilirubin AST ALT Alkaline Phosphatase Total Creatine Kinase CK-MB (CK-2) Troponin T C-Reactive Protein Serum Total Protein Total Protein Albumin [id number] PEP Interpretation Triglycerides LDL Cholesterol Direct HDL Cholesterol Free T4 PTH Intact Urine WBC (Auto) Urine Creatinine Salicylates Acetaminophen Crossmatch 04/11/19 04/11/19 04/11/19 06:47 09:21 12:15 WBC RBC Hgb Hct MCV MCHC RDW Plt Count Lymph % (Auto) [place] % (Auto) Lymph # [place] # Eos # Seg Neutrophils % Seg Neuts % (Manual) Lymphocytes % (Manual) Monocytes % (Manual) Nucleated RBC % Seg Neutrophils # Seg Neutrophils # Man Lymphocytes # (Manual) Monocytes # (Manual) PT INR D-Dimer Heparin Anti-Xa Level POC ABG pH ABG pH POC ABG pCO2 POC ABG pO2 ABG pO2 ABG HCO3 ABG O2 Saturation ABG Base Excess ABG Hemoglobin Oxyhemoglobin Sodium Potassium 3.5 L Chloride Carbon Dioxide BUN 45 H Creatinine 6.0 H Glucose 113 H POC Glucose 106 H 109 H Lactic Acid Calcium Ionized Calcium Phosphorus Magnesium Iron TIBC Ferritin Total Bilirubin Direct Bilirubin AST ALT Alkaline Phosphatase Total Creatine Kinase CK-MB (CK-2) Troponin T C-Reactive Protein Serum Total Protein Total Protein Albumin Uezbw-1-Idmlkjrqc Vskvf-7-Zybcbzmuw PEP Interpretation Triglycerides LDL Cholesterol Direct HDL Cholesterol Free T4 PTH Intact Urine WBC (Auto) Urine Creatinine Salicylates Acetaminophen Crossmatch 04/11/19 04/12/19 04/12/19 18:42 12:13 23:52 WBC RBC Hgb Hct MCV MCHC RDW Plt Count Lymph % (Auto) [place] % (Auto) Lymph # [place] # Eos # Seg Neutrophils % Seg Neuts % (Manual) Lymphocytes % (Manual) Monocytes % (Manual) Nucleated RBC % Seg Neutrophils # Seg Neutrophils # Man Lymphocytes # (Manual) Monocytes # (Manual) PT INR D-Dimer Heparin Anti-Xa Level POC ABG pH ABG pH POC ABG pCO2 POC ABG pO2 ABG pO2 ABG HCO3 ABG O2 Saturation ABG Base Excess ABG Hemoglobin Oxyhemoglobin Sodium Potassium Chloride Carbon Dioxide BUN Creatinine Glucose POC Glucose 107 H 115 H 124 H Lactic Acid Calcium Ionized Calcium Phosphorus Magnesium Iron TIBC Ferritin Total Bilirubin Direct Bilirubin AST ALT Alkaline Phosphatase Total Creatine Kinase CK-MB (CK-2) Troponin T C-Reactive Protein Serum Total Protein Total Protein Albumin Liyte-7-Tzwdxzpdy Mlpuu-9-Rbdlgxbcw PEP Interpretation Triglycerides LDL Cholesterol Direct HDL Cholesterol Free T4 PTH Intact Urine WBC (Auto) Urine Creatinine Salicylates Acetaminophen Crossmatch 04/13/19 04/13/19 04/13/19 05:00 05:00 05:47 WBC 11.7 H RBC 2.97 L Hgb 8.8 L Hct 27.3 L MCV MCHC RDW 16.1 H Plt Count Lymph % (Auto) 9.5 L [place] % (Auto) 9.9 H Lymph # 1.1 L [place] # 1.2 H Eos # Seg Neutrophils % 78.6 H Seg Neuts % (Manual) Lymphocytes % (Manual) Monocytes % (Manual) Nucleated RBC % Seg Neutrophils # 9.2 H Seg Neutrophils # Man Lymphocytes # (Manual) Monocytes # (Manual) PT INR D-Dimer Heparin Anti-Xa Level POC ABG pH ABG pH POC ABG pCO2 POC ABG pO2 ABG pO2 ABG HCO3 ABG O2 Saturation ABG Base Excess ABG Hemoglobin Oxyhemoglobin Sodium Potassium 3.5 L Chloride Carbon Dioxide BUN 42 H Creatinine 4.6 H Glucose 106 H POC Glucose 107 H Lactic Acid Calcium 10.6 H D Ionized Calcium Phosphorus 5.90 H Magnesium Iron TIBC Ferritin Total Bilirubin Direct Bilirubin AST ALT Alkaline Phosphatase Total Creatine Kinase CK-MB (CK-2) Troponin T C-Reactive Protein Serum Total Protein Total Protein 5.8 L Albumin 2.5 L Cefas-4-Pwmowfmhk Qpzhw-8-Jpqjvdsfh PEP Interpretation Triglycerides LDL Cholesterol Direct HDL Cholesterol Free T4 PTH Intact Urine WBC (Auto) Urine Creatinine Salicylates Acetaminophen Crossmatch 04/13/19 04/14/19 04/14/19 17:32 00:00 03:55 WBC RBC Hgb Hct MCV MCHC RDW Plt Count Lymph % (Auto) [place] % (Auto) Lymph # [place] # Eos # Seg Neutrophils % Seg Neuts % (Manual) Lymphocytes % (Manual) Monocytes % (Manual) Nucleated RBC % Seg Neutrophils # Seg Neutrophils # Man Lymphocytes # (Manual) Monocytes # (Manual) PT INR D-Dimer Heparin Anti-Xa Level POC ABG pH ABG pH POC ABG pCO2 POC ABG pO2 ABG pO2 ABG HCO3 ABG O2 Saturation ABG Base Excess ABG Hemoglobin Oxyhemoglobin Sodium Potassium 3.0 L Chloride Carbon Dioxide BUN 30 H Creatinine 3.1 H Glucose POC Glucose 112 H 120 H Lactic Acid Calcium 10.8 H Ionized Calcium Phosphorus Magnesium Iron TIBC Ferritin Total Bilirubin Direct Bilirubin AST ALT Alkaline Phosphatase Total Creatine Kinase CK-MB (CK-2) Troponin T C-Reactive Protein Serum Total Protein Total Protein Albumin Cnwoe-0-Ifkgqbsqb Losie-3-Xquubbial PEP Interpretation Triglycerides LDL Cholesterol Direct HDL Cholesterol Free T4 PTH Intact Urine WBC (Auto) Urine Creatinine Salicylates Acetaminophen Crossmatch 04/14/19 04/14/19 04/15/19 11:56 23:28 05:11 WBC 13.0 H RBC 2.93 L Hgb 8.6 L Hct 26.5 L MCV MCHC RDW 16.5 H Plt Count Lymph % (Auto) 12.2 L [place] % (Auto) 9.1 H Lymph # [place] # 1.2 H Eos # Seg Neutrophils % 77.6 H Seg Neuts % (Manual) Lymphocytes % (Manual) Monocytes % (Manual) Nucleated RBC % Seg Neutrophils # 10.1 H Seg Neutrophils # Man Lymphocytes # (Manual) Monocytes # (Manual) PT INR D-Dimer Heparin Anti-Xa Level POC ABG pH ABG pH POC ABG pCO2 POC ABG pO2 ABG pO2 ABG HCO3 ABG O2 Saturation ABG Base Excess ABG Hemoglobin Oxyhemoglobin Sodium Potassium Chloride Carbon Dioxide BUN Creatinine Glucose POC Glucose 109 H 112 H Lactic Acid Calcium Ionized Calcium Phosphorus Magnesium Iron TIBC Ferritin Total Bilirubin Direct Bilirubin AST ALT Alkaline Phosphatase Total Creatine Kinase CK-MB (CK-2) Troponin T C-Reactive Protein Serum Total Protein Total Protein Albumin Abcuw-0-Kczmgczqr Jmwyn-5-Vxwamssjc PEP Interpretation Triglycerides LDL Cholesterol Direct HDL Cholesterol Free T4 PTH Intact Urine WBC (Auto) Urine Creatinine Salicylates Acetaminophen Crossmatch 04/15/19 04/15/19 04/15/19 05:11 05:31 18:03 WBC RBC Hgb Hct MCV MCHC RDW Plt Count Lymph % (Auto) [place] % (Auto) Lymph # [place] # Eos # Seg Neutrophils % Seg Neuts % (Manual) Lymphocytes % (Manual) Monocytes % (Manual) Nucleated RBC % Seg Neutrophils # Seg Neutrophils # Man Lymphocytes # (Manual) Monocytes # (Manual) PT INR D-Dimer Heparin Anti-Xa Level POC ABG pH ABG pH POC ABG pCO2 POC ABG pO2 ABG pO2 ABG HCO3 ABG O2 Saturation ABG Base Excess ABG Hemoglobin Oxyhemoglobin Sodium Potassium 3.2 L Chloride Carbon Dioxide BUN 44 H Creatinine 3.6 H Glucose 106 H POC Glucose 110 H 121 H Lactic Acid Calcium 12.0 H Ionized Calcium Phosphorus 5.00 H Magnesium Iron TIBC Ferritin Total Bilirubin Direct Bilirubin AST ALT Alkaline Phosphatase Total Creatine Kinase CK-MB (CK-2) Troponin T C-Reactive Protein Serum Total Protein Total Protein Albumin Cseqg-8-Yhweswini Dbztp-9-Fxmnznzhb PEP Interpretation Triglycerides LDL Cholesterol Direct HDL Cholesterol Free T4 PTH Intact Urine WBC (Auto) Urine Creatinine Salicylates Acetaminophen Crossmatch 04/16/19 04/16/19 04/17/19 05:07 05:07 04:15 WBC 12.6 H RBC 3.12 L Hgb 9.0 L Hct 28.2 L MCV MCHC RDW 16.6 H Plt Count Lymph % (Auto) 10.3 L [place] % (Auto) 9.8 H Lymph # [place] # 1.2 H Eos # Seg Neutrophils % 78.2 H Seg Neuts % (Manual) Lymphocytes % (Manual) Monocytes % (Manual) Nucleated RBC % Seg Neutrophils # 9.9 H Seg Neutrophils # Man Lymphocytes # (Manual) Monocytes # (Manual) PT INR D-Dimer Heparin Anti-Xa Level POC ABG pH ABG pH POC ABG pCO2 POC ABG pO2 ABG pO2 ABG HCO3 ABG O2 Saturation ABG Base Excess ABG Hemoglobin Oxyhemoglobin Sodium 147 H 150 H Potassium 3.5 L 3.1 L Chloride Carbon Dioxide 32 H BUN 54 H 65 H Creatinine 3.8 H 4.0 H Glucose 102 H 107 H POC Glucose Lactic Acid Calcium 11.7 H 12.0 H Ionized Calcium Phosphorus 5.40 H Magnesium Iron TIBC Ferritin Total Bilirubin Direct Bilirubin AST ALT Alkaline Phosphatase Total Creatine Kinase CK-MB (CK-2) Troponin T C-Reactive Protein 7.10 H Serum Total Protein Total Protein Albumin Iwyqw-3-Yxmtarlnz Kcejp-1-Jncevomuf PEP Interpretation Triglycerides LDL Cholesterol Direct HDL Cholesterol Free T4 PTH Intact Urine WBC (Auto) Urine Creatinine Salicylates Acetaminophen Crossmatch 04/17/19 04/17/19 04/17/19 04:15 06:05 12:49 WBC 15.8 H RBC 3.32 L Hgb 9.5 L Hct 29.9 L MCV MCHC RDW 16.9 H Plt Count Lymph % (Auto) 12.6 L [place] % (Auto) 11.1 H Lymph # [place] # 1.7 H Eos # Seg Neutrophils % 74.7 H Seg Neuts % (Manual) Lymphocytes % (Manual) Monocytes % (Manual) Nucleated RBC % Seg Neutrophils # 11.8 H Seg Neutrophils # Man Lymphocytes # (Manual) Monocytes # (Manual) PT INR D-Dimer Heparin Anti-Xa Level POC ABG pH ABG pH POC ABG pCO2 POC ABG pO2 ABG pO2 ABG HCO3 ABG O2 Saturation ABG Base Excess ABG Hemoglobin Oxyhemoglobin Sodium Potassium Chloride Carbon Dioxide BUN Creatinine Glucose POC Glucose 111 H 108 H Lactic Acid Calcium Ionized Calcium Phosphorus Magnesium Iron TIBC Ferritin Total Bilirubin Direct Bilirubin AST ALT Alkaline Phosphatase Total Creatine Kinase CK-MB (CK-2) Troponin T C-Reactive Protein Serum Total Protein Total Protein Albumin Ufpns-7-Zogmvemzp Shoba-5-Xtrfqnhmm PEP Interpretation Triglycerides LDL Cholesterol Direct HDL Cholesterol Free T4 PTH Intact Urine WBC (Auto) Urine Creatinine Salicylates Acetaminophen Crossmatch 04/18/19 04/18/19 04/18/19 00:23 04:41 04:41 WBC 19.4 H RBC 3.03 L Hgb 8.6 L Hct 27.5 L MCV MCHC 31 L RDW 16.9 H Plt Count Lymph % (Auto) [place] % (Auto) Lymph # [place] # Eos # Seg Neutrophils % Seg Neuts % (Manual) Lymphocytes % (Manual) Monocytes % (Manual) Nucleated RBC % Seg Neutrophils # Seg Neutrophils # Man Lymphocytes # (Manual) Monocytes # (Manual) PT INR D-Dimer Heparin Anti-Xa Level POC ABG pH ABG pH POC ABG pCO2 POC ABG pO2 ABG pO2 ABG HCO3 ABG O2 Saturation ABG Base Excess ABG Hemoglobin Oxyhemoglobin Sodium 152 H Potassium 3.0 L Chloride Carbon Dioxide BUN 80 H Creatinine 4.3 H Glucose 103 H POC Glucose 115 H Lactic Acid Calcium 11.4 H Ionized Calcium Phosphorus Magnesium Iron TIBC Ferritin Total Bilirubin Direct Bilirubin AST ALT Alkaline Phosphatase Total Creatine Kinase CK-MB (CK-2) Troponin T C-Reactive Protein Serum Total Protein Total Protein Albumin Frcov-8-Ahzrwqhfp Momxg-5-Liqsybixw PEP Interpretation Triglycerides LDL Cholesterol Direct HDL Cholesterol Free T4 PTH Intact Urine WBC (Auto) Urine Creatinine Salicylates Acetaminophen Crossmatch 04/18/19 04/18/19 04/18/19 06:17 12:16 18:10 WBC RBC Hgb Hct MCV MCHC RDW Plt Count Lymph % (Auto) [place] % (Auto) Lymph # [place] # Eos # Seg Neutrophils % Seg Neuts % (Manual) Lymphocytes % (Manual) Monocytes % (Manual) Nucleated RBC % Seg Neutrophils # Seg Neutrophils # Man Lymphocytes # (Manual) Monocytes # (Manual) PT INR D-Dimer Heparin Anti-Xa Level POC ABG pH ABG pH POC ABG pCO2 POC ABG pO2 ABG pO2 ABG HCO3 ABG O2 Saturation ABG Base Excess ABG Hemoglobin Oxyhemoglobin Sodium Potassium Chloride Carbon Dioxide BUN Creatinine Glucose POC Glucose 124 H 119 H 111 H Lactic Acid Calcium Ionized Calcium Phosphorus Magnesium Iron TIBC Ferritin Total Bilirubin Direct Bilirubin AST ALT Alkaline Phosphatase Total Creatine Kinase CK-MB (CK-2) Troponin T C-Reactive Protein Serum Total Protein Total Protein Albumin Aqobi-6-Hnqcwwnvs Vzjyc-1-Vypdopijo PEP Interpretation Triglycerides LDL Cholesterol Direct HDL Cholesterol Free T4 PTH Intact Urine WBC (Auto) Urine Creatinine Salicylates Acetaminophen Crossmatch 04/19/19 04/19/19 04/20/19 03:49 05:27 09:09 WBC RBC Hgb Hct MCV MCHC RDW Plt Count Lymph % (Auto) [place] % (Auto) Lymph # [place] # Eos # Seg Neutrophils % Seg Neuts % (Manual) Lymphocytes % (Manual) Monocytes % (Manual) Nucleated RBC % Seg Neutrophils # Seg Neutrophils # Man Lymphocytes # (Manual) Monocytes # (Manual) PT INR D-Dimer Heparin Anti-Xa Level POC ABG pH ABG pH POC ABG pCO2 POC ABG pO2 ABG pO2 ABG HCO3 ABG O2 Saturation ABG Base Excess ABG Hemoglobin Oxyhemoglobin Sodium 147 H 150 H Potassium 3.3 L Chloride 108.9 H Carbon Dioxide BUN 45 H 70 H Creatinine 2.9 H 4.1 H Glucose 105 H POC Glucose 124 H Lactic Acid Calcium 10.6 H 11.6 H Ionized Calcium Phosphorus Magnesium Iron TIBC Ferritin Total Bilirubin Direct Bilirubin AST ALT Alkaline Phosphatase Total Creatine Kinase CK-MB (CK-2) Troponin T C-Reactive Protein Serum Total Protein Total Protein Albumin Iwrez-8-Juoqlgqns Sfenx-4-Mycldbwpj PEP Interpretation Triglycerides LDL Cholesterol Direct HDL Cholesterol Free T4 PTH Intact Urine WBC (Auto) Urine Creatinine Salicylates Acetaminophen Crossmatch 04/20/19 04/20/19 04/21/19 12:29 18:45 01:34 WBC RBC Hgb Hct MCV MCHC RDW Plt Count Lymph % (Auto) [place] % (Auto) Lymph # [place] # Eos # Seg Neutrophils % Seg Neuts % (Manual) Lymphocytes % (Manual) Monocytes % (Manual) Nucleated RBC % Seg Neutrophils # Seg Neutrophils # Man Lymphocytes # (Manual) Monocytes # (Manual) PT INR D-Dimer Heparin Anti-Xa Level POC ABG pH ABG pH POC ABG pCO2 POC ABG pO2 ABG pO2 ABG HCO3 ABG O2 Saturation ABG Base Excess ABG Hemoglobin Oxyhemoglobin Sodium Potassium Chloride Carbon Dioxide BUN 40 H Creatinine 2.6 H Glucose 104 H POC Glucose 131 H 134 H Lactic Acid Calcium 11.0 H Ionized Calcium Phosphorus Magnesium Iron TIBC Ferritin Total Bilirubin Direct Bilirubin AST ALT Alkaline Phosphatase Total Creatine Kinase CK-MB (CK-2) Troponin T C-Reactive Protein Serum Total Protein Total Protein Albumin Jhlci-4-Qhqjlmwvw Ayoaa-2-Iinbafizw PEP Interpretation Triglycerides LDL Cholesterol Direct HDL Cholesterol Free T4 PTH Intact Urine WBC (Auto) Urine Creatinine Salicylates Acetaminophen Crossmatch 04/21/19 04/21/19 04/22/19 04:22 04:22 04:24 WBC 14.2 H 14.3 H RBC 3.02 L 3.57 L Hgb 8.7 L 10.1 L Hct 27.2 L 32.1 L MCV MCHC RDW 16.7 H 17.2 H Plt Count Lymph % (Auto) [place] % (Auto) Lymph # [place] # Eos # Seg Neutrophils % Seg Neuts % (Manual) Lymphocytes % (Manual) Monocytes % (Manual) Nucleated RBC % Seg Neutrophils # Seg Neutrophils # Man Lymphocytes # (Manual) Monocytes # (Manual) PT INR D-Dimer Heparin Anti-Xa Level POC ABG pH ABG pH POC ABG pCO2 POC ABG pO2 ABG pO2 ABG HCO3 ABG O2 Saturation ABG Base Excess ABG Hemoglobin Oxyhemoglobin Sodium Potassium Chloride Carbon Dioxide BUN Creatinine Glucose POC Glucose Lactic Acid Calcium Ionized Calcium Phosphorus Magnesium Iron TIBC Ferritin Total Bilirubin Direct Bilirubin AST ALT Alkaline Phosphatase Total Creatine Kinase CK-MB (CK-2) Troponin T C-Reactive Protein Serum Total Protein 5.7 L Total Protein Albumin 2.3 L Bltyo-1-Gpueyyigd 0.5 H Pxwsw-1-Dfdeforev 1.0 H PEP Interpretation see below H Triglycerides LDL Cholesterol Direct HDL Cholesterol Free T4 PTH Intact Urine WBC (Auto) Urine Creatinine Salicylates Acetaminophen Crossmatch 04/22/19 04/22/19 04/22/19 04:24 06:37 11:57 WBC RBC Hgb Hct MCV MCHC RDW Plt Count Lymph % (Auto) [place] % (Auto) Lymph # [place] # Eos # Seg Neutrophils % Seg Neuts % (Manual) Lymphocytes % (Manual) Monocytes % (Manual) Nucleated RBC % Seg Neutrophils # Seg Neutrophils # Man Lymphocytes # (Manual) Monocytes # (Manual) PT INR D-Dimer Heparin Anti-Xa Level POC ABG pH ABG pH POC ABG pCO2 POC ABG pO2 ABG pO2 ABG HCO3 ABG O2 Saturation ABG Base Excess ABG Hemoglobin Oxyhemoglobin Sodium Potassium Chloride Carbon Dioxide BUN 54 H Creatinine 3.5 H Glucose POC Glucose 113 H 110 H Lactic Acid Calcium 11.4 H Ionized Calcium Phosphorus Magnesium Iron TIBC Ferritin Total Bilirubin Direct Bilirubin AST ALT Alkaline Phosphatase Total Creatine Kinase CK-MB (CK-2) Troponin T C-Reactive Protein Serum Total Protein Total Protein Albumin Gyfrv-8-Izklsfong Brpxu-2-Esfablsby PEP Interpretation Triglycerides LDL Cholesterol Direct HDL Cholesterol Free T4 PTH Intact Urine WBC (Auto) Urine Creatinine Salicylates Acetaminophen Crossmatch 04/22/19 04/23/19 04/23/19 18:33 04:06 04:06 WBC 16.1 H RBC 3.36 L Hgb 9.8 L Hct 30.8 L MCV MCHC RDW 17.7 H Plt Count Lymph % (Auto) 9.9 L [place] % (Auto) Lymph # [place] # Eos # Seg Neutrophils % 84.2 H Seg Neuts % (Manual) Lymphocytes % (Manual) Monocytes % (Manual) Nucleated RBC % Seg Neutrophils # 13.6 H Seg Neutrophils # Man Lymphocytes # (Manual) Monocytes # (Manual) PT INR D-Dimer Heparin Anti-Xa Level POC ABG pH ABG pH POC ABG pCO2 POC ABG pO2 ABG pO2 ABG HCO3 ABG O2 Saturation ABG Base Excess ABG Hemoglobin Oxyhemoglobin Sodium Potassium Chloride Carbon Dioxide BUN 59 H Creatinine 3.8 H Glucose POC Glucose 120 H Lactic Acid Calcium 12.3 H* Ionized Calcium Phosphorus 5.70 H Magnesium Iron TIBC Ferritin Total Bilirubin Direct Bilirubin AST ALT Alkaline Phosphatase Total Creatine Kinase CK-MB (CK-2) Troponin T C-Reactive Protein Serum Total Protein Total Protein Albumin 3.2 L Ecvjg-9-Djavvwfig Qlups-2-Muedbqytt PEP Interpretation Triglycerides LDL Cholesterol Direct HDL Cholesterol Free T4 PTH Intact Urine WBC (Auto) Urine Creatinine Salicylates Acetaminophen Crossmatch 04/23/19 04/24/19 04/24/19 18:06 04:12 04:12 WBC 18.0 H RBC 3.46 L Hgb 9.8 L Hct 31.2 L MCV MCHC 31 L RDW 17.5 H Plt Count Lymph % (Auto) 11.1 L [place] % (Auto) Lymph # [place] # Eos # Seg Neutrophils % 81.9 H Seg Neuts % (Manual) Lymphocytes % (Manual) Monocytes % (Manual) Nucleated RBC % Seg Neutrophils # 14.7 H Seg Neutrophils # Man Lymphocytes # (Manual) Monocytes # (Manual) PT INR D-Dimer Heparin Anti-Xa Level POC ABG pH ABG pH POC ABG pCO2 POC ABG pO2 ABG pO2 ABG HCO3 ABG O2 Saturation ABG Base Excess ABG Hemoglobin Oxyhemoglobin Sodium Potassium Chloride Carbon Dioxide BUN 56 H Creatinine 3.6 H Glucose POC Glucose 124 H Lactic Acid Calcium 12.6 H* Ionized Calcium Phosphorus Magnesium Iron TIBC Ferritin Total Bilirubin Direct Bilirubin AST ALT Alkaline Phosphatase Total Creatine Kinase CK-MB (CK-2) Troponin T C-Reactive Protein Serum Total Protein Total Protein Albumin 3.2 L Jcwhk-6-Lducqyogu Dxrmw-1-Uhyygbbxn PEP Interpretation Triglycerides LDL Cholesterol Direct HDL Cholesterol Free T4 PTH Intact Urine WBC (Auto) Urine Creatinine Salicylates Acetaminophen Crossmatch 04/24/19 04/24/19 04/25/19 06:21 11:47 05:58 WBC 18.0 H RBC 2.98 L Hgb 8.3 L Hct 26.5 L MCV MCHC 31 L RDW 17.9 H Plt Count Lymph % (Auto) 10.1 L [place] % (Auto) Lymph # [place] # 0.9 H Eos # Seg Neutrophils % 82.8 H Seg Neuts % (Manual) Lymphocytes % (Manual) Monocytes % (Manual) Nucleated RBC % Seg Neutrophils # 15.0 H Seg Neutrophils # Man Lymphocytes # (Manual) Monocytes # (Manual) PT INR D-Dimer Heparin Anti-Xa Level POC ABG pH ABG pH POC ABG pCO2 POC ABG pO2 ABG pO2 ABG HCO3 ABG O2 Saturation ABG Base Excess ABG Hemoglobin Oxyhemoglobin Sodium Potassium Chloride Carbon Dioxide BUN Creatinine Glucose POC Glucose 132 H 106 H Lactic Acid Calcium Ionized Calcium Phosphorus Magnesium Iron TIBC Ferritin Total Bilirubin Direct Bilirubin AST ALT Alkaline Phosphatase Total Creatine Kinase CK-MB (CK-2) Troponin T C-Reactive Protein Serum Total Protein Total Protein Albumin Ihlwu-8-Ihpuggobe Buxcp-3-Blrmdlwyz PEP Interpretation Triglycerides LDL Cholesterol Direct HDL Cholesterol Free T4 PTH Intact Urine WBC (Auto) Urine Creatinine Salicylates Acetaminophen Crossmatch 04/25/19 04/26/19 04/26/19 05:58 05:57 06:08 WBC RBC Hgb Hct MCV MCHC RDW Plt Count Lymph % (Auto) [place] % (Auto) Lymph # [place] # Eos # Seg Neutrophils % Seg Neuts % (Manual) Lymphocytes % (Manual) Monocytes % (Manual) Nucleated RBC % Seg Neutrophils # Seg Neutrophils # Man Lymphocytes # (Manual) Monocytes # (Manual) PT INR D-Dimer Heparin Anti-Xa Level POC ABG pH ABG pH POC ABG pCO2 POC ABG pO2 ABG pO2 ABG HCO3 ABG O2 Saturation ABG Base Excess ABG Hemoglobin Oxyhemoglobin Sodium Potassium 3.2 L Chloride Carbon Dioxide BUN 52 H 48 H Creatinine 3.2 H 2.9 H Glucose 108 H 112 H POC Glucose 109 H Lactic Acid Calcium 11.4 H 12.5 H* Ionized Calcium Phosphorus 5.90 H Magnesium Iron TIBC Ferritin Total Bilirubin Direct Bilirubin AST ALT Alkaline Phosphatase Total Creatine Kinase CK-MB (CK-2) Troponin T C-Reactive Protein Serum Total Protein Total Protein Albumin 3.0 L Tdkri-8-Odunxkyek Ssnbh-4-Ksbmmrdys PEP Interpretation Triglycerides LDL Cholesterol Direct HDL Cholesterol Free T4 PTH Intact Urine WBC (Auto) Urine Creatinine Salicylates Acetaminophen Crossmatch 04/26/19 04/26/19 04/27/19 07:22 13:39 05:05 WBC 11.9 H RBC 3.01 L Hgb 8.6 L Hct 26.3 L MCV MCHC RDW 17.6 H Plt Count Lymph % (Auto) 11.9 L [place] % (Auto) Lymph # [place] # Eos # Seg Neutrophils % 78.3 H Seg Neuts % (Manual) Lymphocytes % (Manual) Monocytes % (Manual) Nucleated RBC % Seg Neutrophils # 9.4 H Seg Neutrophils # Man Lymphocytes # (Manual) Monocytes # (Manual) PT INR D-Dimer Heparin Anti-Xa Level POC ABG pH ABG pH POC ABG pCO2 POC ABG pO2 ABG pO2 ABG HCO3 ABG O2 Saturation ABG Base Excess ABG Hemoglobin Oxyhemoglobin Sodium Potassium Chloride Carbon Dioxide BUN 46 H Creatinine 2.8 H Glucose POC Glucose Lactic Acid Calcium > 13.0 H* 12.2 H* Ionized Calcium Phosphorus Magnesium Iron TIBC Ferritin Total Bilirubin Direct Bilirubin AST ALT Alkaline Phosphatase Total Creatine Kinase CK-MB (CK-2) Troponin T C-Reactive Protein Serum Total Protein Total Protein Albumin Nqzbs-1-Hkjpyfbnc Aaqzw-8-Ulgknctta PEP Interpretation Triglycerides LDL Cholesterol Direct HDL Cholesterol Free T4 PTH Intact Urine WBC (Auto) Urine Creatinine Salicylates Acetaminophen Crossmatch 04/27/19 04/28/19 04/29/19 05:05 05:17 14:14 WBC RBC Hgb Hct MCV MCHC RDW Plt Count Lymph % (Auto) [place] % (Auto) Lymph # [place] # Eos # Seg Neutrophils % Seg Neuts % (Manual) Lymphocytes % (Manual) Monocytes % (Manual) Nucleated RBC % Seg Neutrophils # Seg Neutrophils # Man Lymphocytes # (Manual) Monocytes # (Manual) PT INR D-Dimer Heparin Anti-Xa Level POC ABG pH ABG pH POC ABG pCO2 POC ABG pO2 ABG pO2 ABG HCO3 ABG O2 Saturation ABG Base Excess ABG Hemoglobin Oxyhemoglobin Sodium 136 L Potassium 3.2 L 3.4 L Chloride Carbon Dioxide BUN 40 H 34 H 33 H Creatinine 2.5 H 2.0 H 1.9 H Glucose 113 H 107 H POC Glucose Lactic Acid Calcium 12.3 H* 12.1 H* 11.5 H Ionized Calcium Phosphorus Magnesium Iron TIBC Ferritin Total Bilirubin Direct Bilirubin AST ALT Alkaline Phosphatase Total Creatine Kinase CK-MB (CK-2) Troponin T C-Reactive Protein Serum Total Protein Total Protein 6.2 L Albumin 2.8 L Xmmme-4-Ortvfvtws Qsara-1-Ftwnbhvtg PEP Interpretation Triglycerides LDL Cholesterol Direct HDL Cholesterol Free T4 PTH Intact Urine WBC (Auto) Urine Creatinine Salicylates Acetaminophen Crossmatch 04/29/19 04/29/19 04/30/19 14:14 14:14 06:47 WBC RBC Hgb Hct MCV MCHC RDW Plt Count Lymph % (Auto) [place] % (Auto) Lymph # [place] # Eos # Seg Neutrophils % Seg Neuts % (Manual) Lymphocytes % (Manual) Monocytes % (Manual) Nucleated RBC % Seg Neutrophils # Seg Neutrophils # Man Lymphocytes # (Manual) Monocytes # (Manual) PT INR D-Dimer Heparin Anti-Xa Level POC ABG pH ABG pH POC ABG pCO2 POC ABG pO2 ABG pO2 ABG HCO3 ABG O2 Saturation ABG Base Excess ABG Hemoglobin Oxyhemoglobin Sodium Potassium 3.2 L Chloride Carbon Dioxide 21 L BUN 26 H Creatinine 1.8 H Glucose POC Glucose Lactic Acid Calcium 10.8 H Ionized Calcium 7.2 H* Phosphorus Magnesium Iron TIBC Ferritin Total Bilirubin Direct Bilirubin AST ALT Alkaline Phosphatase Total Creatine Kinase CK-MB (CK-2) Troponin T C-Reactive Protein Serum Total Protein Total Protein Albumin Ejols-2-Dkcomnknw Dkuxt-5-Frrpacygy PEP Interpretation Triglycerides LDL Cholesterol Direct HDL Cholesterol Free T4 PTH Intact 8.83 L Urine WBC (Auto) Urine Creatinine Salicylates Acetaminophen Crossmatch 04/30/19 05/01/19 05/01/19 12:17 06:52 06:52 WBC 15.4 H RBC 3.01 L Hgb 8.4 L Hct 26.2 L MCV MCHC RDW 17.0 H Plt Count Lymph % (Auto) 8.4 L [place] % (Auto) 8.9 H Lymph # [place] # 1.4 H Eos # 0.5 H Seg Neutrophils % 78.7 H Seg Neuts % (Manual) Lymphocytes % (Manual) Monocytes % (Manual) Nucleated RBC % Seg Neutrophils # 12.1 H Seg Neutrophils # Man Lymphocytes # (Manual) Monocytes # (Manual) PT INR D-Dimer Heparin Anti-Xa Level POC ABG pH ABG pH POC ABG pCO2 POC ABG pO2 ABG pO2 ABG HCO3 ABG O2 Saturation ABG Base Excess ABG Hemoglobin Oxyhemoglobin Sodium Potassium 3.0 L Chloride Carbon Dioxide BUN 22 H Creatinine Glucose POC Glucose 106 H Lactic Acid Calcium 11.2 H Ionized Calcium Phosphorus Magnesium Iron TIBC Ferritin Total Bilirubin Direct Bilirubin AST ALT Alkaline Phosphatase Total Creatine Kinase CK-MB (CK-2) Troponin T C-Reactive Protein Serum Total Protein Total Protein Albumin 3.0 L [id number] [id number]-1-[id number] PEP Interpretation Triglycerides LDL Cholesterol Direct HDL Cholesterol Free T4 PTH Intact Urine WBC (Auto) Urine Creatinine Salicylates Acetaminophen Crossmatch 05/01/19 05/01/19 05/02/19 06:52 18:40 05:32 WBC RBC Hgb Hct MCV MCHC RDW Plt Count Lymph % (Auto) [place] % (Auto) Lymph # Finney # Eos # Seg Neutrophils % Seg Neuts % (Manual) Lymphocytes % (Manual) Monocytes % (Manual) Nucleated RBC % Seg Neutrophils # Seg Neutrophils # Man Lymphocytes # (Manual) Monocytes # (Manual) PT INR D-Dimer Heparin Anti-Xa Level POC ABG pH ABG pH POC ABG pCO2 POC ABG pO2 ABG pO2 ABG HCO3 ABG O2 Saturation ABG Base Excess ABG Hemoglobin Oxyhemoglobin Sodium Potassium Chloride Carbon Dioxide BUN Creatinine Glucose POC Glucose 169 H 109 H Lactic Acid Calcium Ionized Calcium Phosphorus Magnesium Iron TIBC Ferritin Total Bilirubin Direct Bilirubin AST ALT Alkaline Phosphatase Total Creatine Kinase CK-MB (CK-2) Troponin T C-Reactive Protein Serum Total Protein 5.7 L Total Protein Albumin 2.5 L Ifsxo-4-Wyywjrmqe 0.5 H Celwv-1-Sjzluguzn PEP Interpretation see below H Triglycerides LDL Cholesterol Direct HDL Cholesterol Free T4 PTH Intact Urine WBC (Auto) Urine Creatinine Salicylates Acetaminophen Crossmatch 05/02/19 05/02/19 05/02/19 05:57 05:57 11:43 WBC 14.2 H RBC 2.96 L Hgb 8.3 L Hct 26.0 L MCV MCHC RDW 16.8 H Plt Count Lymph % (Auto) Finney % (Auto) Lymph # Finney # Eos # Seg Neutrophils % Seg Neuts % (Manual) Lymphocytes % (Manual) Monocytes % (Manual) Nucleated RBC % Seg Neutrophils # Seg Neutrophils # Man Lymphocytes # (Manual) Monocytes # (Manual) PT INR D-Dimer Heparin Anti-Xa Level POC ABG pH ABG pH POC ABG pCO2 POC ABG pO2 ABG pO2 ABG HCO3 ABG O2 Saturation ABG Base Excess ABG Hemoglobin Oxyhemoglobin Sodium 136 L Potassium 3.5 L Chloride Carbon Dioxide BUN 21 H Creatinine Glucose POC Glucose 108 H Lactic Acid Calcium 11.1 H Ionized Calcium Phosphorus Magnesium Iron TIBC Ferritin Total Bilirubin Direct Bilirubin AST ALT Alkaline Phosphatase Total Creatine Kinase CK-MB (CK-2) Troponin T C-Reactive Protein Serum Total Protein Total Protein Albumin [id number]-[id number]-Xzwvfwldo Wjqio-1-Zrfbjspaz PEP Interpretation Triglycerides LDL Cholesterol Direct HDL Cholesterol Free T4 PTH Intact Urine WBC (Auto) Urine Creatinine Salicylates Acetaminophen Crossmatch 05/03/19 05/03/19 05:37 05:37 WBC 12.7 H RBC 3.01 L Hgb 8.3 L Hct 26.1 L MCV MCHC RDW 16.9 H Plt Count Lymph % (Auto) [place] % (Auto) Lymph # Finney # Eos # Seg Neutrophils % Seg Neuts % (Manual) Lymphocytes % (Manual) Monocytes % (Manual) Nucleated RBC % Seg Neutrophils # Seg Neutrophils # Man Lymphocytes # (Manual) Monocytes # (Manual) PT INR D-Dimer Heparin Anti-Xa Level POC ABG pH ABG pH POC ABG pCO2 POC ABG pO2 ABG pO2 ABG HCO3 ABG O2 Saturation ABG Base Excess ABG Hemoglobin Oxyhemoglobin Sodium 135 L Potassium 3.3 L Chloride Carbon Dioxide BUN Creatinine Glucose POC Glucose Lactic Acid Calcium 10.9 H Ionized Calcium Phosphorus Magnesium 1.50 L Iron TIBC Ferritin Total Bilirubin Direct Bilirubin AST ALT Alkaline Phosphatase Total Creatine Kinase CK-MB (CK-2) Troponin T C-Reactive Protein Serum Total Protein Total Protein Albumin Wlaxq-2-Gejhzvzbu Awckd-1-Dewssdpjy PEP Interpretation Triglycerides LDL Cholesterol Direct HDL Cholesterol Free T4 PTH Intact Urine WBC (Auto) Urine Creatinine Salicylates Acetaminophen Crossmatch
--- NOTE | 2019-05-03 11:51 | Progress Note ---
Assessment and Plan S/p lexiscan MPI stress test this AM which was abnormal - showed small mild to moderate reversible anterior and lateral perfusion defect, EF 44%. Coronary angiography is recommended for definitive diagnosis. Indications, potential risks and benefits of LHC reviewed with pt and he is agreeable to proceed in AM. NPO after MN. Plan for C d/w Dr. Rice given renal insufficiency - IVF recommended pre cardiac cath. Will initiate IVF. The patient has been seen in conjunction with Dr. Echavarria who agrees with the assessment and plan of care. - Patient Problems (1) Cardiopulmonary arrest Current Visit: Yes Status: Acute (2) Acute respiratory failure Current Visit: Yes Status: Acute Qualifiers: Respiratory failure complication: hypoxia Qualified Code(s): J96.01 - Acute respiratory failure with hypoxia (3) Paroxysmal atrial fibrillation with RVR Current Visit: Yes Status: Acute (4) SVT (supraventricular tachycardia) Current Visit: Yes Status: Acute (5) Torsades de pointes Current Visit: Yes Status: Acute (6) Ventricular tachycardia Current Visit: Yes Status: Acute (7) Encephalopathy Current Visit: Yes Status: Acute (8) Septic shock Current Visit: Yes Status: Acute (9) Aspiration pneumonia Current Visit: Yes Status: Acute Qualifiers: Aspiration pneumonia type: unspecified (10) Meningitis Current Visit: Yes Status: Suspected (11) Cellulitis Current Visit: Yes Status: Acute (12) Acute renal failure Current Visit: Yes Status: Acute Qualifiers: Acute renal failure type: with acute tubular necrosis Qualified Code(s): N17.0 - Acute kidney failure with tubular necrosis (13) GI bleed Current Visit: Yes Status: Acute (14) Anemia Current Visit: Yes Status: Acute (15) Thrombocytopenia Current Visit: Yes Status: Resolved (16) DVT (deep venous thrombosis) Current Visit: Yes Status: Acute Subjective Date of service: 05/03/19 Principal diagnosis: anemia - DVT rt IJ Interval history: pt for stress test today, no current complaints. in SR Objective Last Vital Signs Temp 98.3 F 05/03/19 05:32 Pulse 86 05/03/19 05:32 Resp 18 05/03/19 05:32 BP 103/58 05/03/19 09:39 Pulse Ox 94 05/03/19 05:32 - Physical Examination General: No Apparent Distress HEENT: Positive: PERRL, EOMI, Normocephaly, Mucus Membranes Moist Neck: Positive: neck supple, trachea midline Cardiac: Positive: Reg Rate and Rhythm, S1/S2 Lungs: Positive: Decreased Breath Sounds Neuro: Positive: Grossly Intact, Other Abdomen: Positive: Soft, Active Bowel Sounds. Negative: Tender /Rectal: Other (deferred) Skin: Positive: Clear. Negative: Rash Musculoskeletal: Normal Range of Motion, other (LUE swollen ) Extremities: Present: +3 Edema (LUE). Absent: edema - Labs and Meds CBC 05/03/19 Range/Units 05:37 WBC 12.7 H (4.5-11.0) K/mm3 RBC 3.01 L (3.65-5.03) M/mm3 Hgb 8.3 L (11.8-15.2) gm/dl Hct 26.1 L (35.5-45.6) % Plt Count 344 (140-440) K/mm3 Comprehensive Metabolic Panel 05/01/19 05/03/19 Range/Units 06:52 05:37 Sodium 135 L (137-145) mmol/L Potassium 3.3 L (3.6-5.0) mmol/L Chloride 99.0 (98-107) mmol/L Carbon Dioxide 24 (22-30) mmol/L BUN 19 (9-20) mg/dL Creatinine 1.3 (0.8-1.5) mg/dL Glucose 94 (75-100) mg/dL Calcium 10.9 H (8.4-10.2) mg/dL Albumin 2.5 L (3.8-4.8) g/dL - Imaging and Cardiology Echo: report reviewed ( EF 40-45%, impaired relaxation. ) - EKG Sinus rhythms and dysrhythmias: sinus rhythm - Allied health notes Allied health notes reviewed: nursing
[2019-05-03] MEDS ORDERED: SODIUM CHLORIDE 0.9% 500 ML 500 ML IV SCH (12:00)
--- NOTE | 2019-05-03 17:12 | Progress Note ---
Assessment and Plan Assessment and plan: Patient is a 43-year-old man with history of GERD, obesity and mental illness, who presented to [facility] ED on 03/16/2019 with altered mental status. He is visiting from [place] and was brought in by his friend. As per records per family he has been homeless living [address] [place]. When he came to the ER, he was unable to speak or follow commands, in the ER he was found to have SVT with heart rate in the 250s. The patient was shocked and medicated. Also was confused, and had trouble protecting his airway; therefore, he was then intubated. He has had a prolonged hospital course. During this hospital course, he was found to have sepsis with septic shock, acute resp failure, rhabdomyolysis, RUBEN, and multisystem organ failure, toxic metabolic encephalopathy. He was started on hemodialysis, now off since 04/20/19. He is much improved. Acute hypoxic respiratory failure. Was intubated, now extubated. Now on Room air. Continue BiPAP as clinically indicated. Right upper ext DVT: Unfortunately patient with clot adherent ulcer on EGD, Unable to irrigate out. H/H relatively stable and plt improved. Will recommend elevating upper ext. SVT with Polymorphic Vtach/Atrial fibrillation. Continue Metoprolol. Cardiology following. No systemic AC regarding AFib in setting of anemia, thrombocytopenia, GI bleed. Stress test today was abnormal For cardiac cath in am Acute blood loss anemia. Patient with GI bleed secondary to peptic ulcer disease. EGD completed per GI. Continue PRBCs as needed. GI bleed/peptic ulcer disease. Continue PPI. Transfuse PRBCs as needed. Sepsis/septic shock. Completed Antoibiotics Right Axillary cellulitis/Suspect Aspiration pneumonia/Acute Cystitis: Antibiotics stopped. Fever, recurrent- Improved ID following Severe Metabolic Acidosis- Resolved Hypercalcemia: Slight improvement. Continue to monitor- give fluids and lasix, recalled Marketing And Public Relations Manager Multi-Organ failure/ Ischemic hepatitis/shock liver. Elevated LFTs improved. Viral hepatitis panel negative Acute Kidney Failure secondary to ATN ANURIC. Patient off hemodialysis. Patient was started on hemodialysis on 03/18/19 due to worsening metabolic acidosis and hyperkalemia. Last dialysis on 04/20. Baseline renal function is unknown. CT abdomen was negative for obstructive nephropathy. Avoid nephrotoxic agents. Continue hemodialysis per nephrology. Toxic metabolic encephalopathy. Brain MRI showed no acute intracranial abnormality, mild nonspecific chronic white matter changes, fluid throughout the sinuses and mastoid air cells. Swelling both upper ext L>R Doppler US : no DVT LUE Repeat doppler Continue wound care Patient recieved fluids, will give calcium Left AC wound- Dressing in place, wound care following and proscribing management Hypokalemia. Corrected. Replete potassium as needed. Hypernatremia. Follow-up BMP, Nephrology following Now resolved Thrombocytopenia, Presume DIC. Etiology likely secondary to sepsis. Resolved. Rhabdomyolysis. CK normalized. Full code status Continue aggressive PT. Leeanna input is noted Awaiting placement History Interval history: Feels better Had stress test today Hospitalist Physical - Physical exam Narrative exam: Gen: Not in acute distress, lying in bed, morbidly obese HEENT: Normocephalic, atraumatic, NG tube Neck: supple, no JVD Heart: S1 and S2 irreg, no murmurs, rubs or gallop Lungs: Clear to auscultation, no rhonchi, no wheeze Abd: soft, non tender, non distended, normal BS, Ext: bilateral upper ext edema, L>R, no clubbing, no cyanosis, dressing over left elbow,eschar anterior left elbow Neuro: Awake, alert,oriented, moves all ext - Constitutional Vitals: Temp Pulse Resp BP Pulse Ox 98.3 F 98 H 18 103/58 92 05/03/19 05:32 05/03/19 11:29 05/03/19 05:32 05/03/19 09:39 05/03/19 11:29 General appearance: Present: obese Results - Labs CBC & Chem 7: 05/03/19 05:37 05/03/19 05:37 Labs: Laboratory Last Values WBC 12.7 K/mm3 (4.5-11.0) H 05/03/19 05:37 RBC 3.01 M/mm3 (3.65-5.03) L 05/03/19 05:37 Hgb 8.3 gm/dl (11.8-15.2) L 05/03/19 05:37 Hct 26.1 % (35.5-45.6) L 05/03/19 05:37 MCV 87 fl (84-94) 05/03/19 05:37 MCH 28 pg (28-32) 05/03/19 05:37 MCHC 32 % (32-34) 05/03/19 05:37 RDW 16.9 % (13.2-15.2) H 05/03/19 05:37 Plt Count 344 K/mm3 (140-440) 05/03/19 05:37 Lymph % (Auto) 8.4 % (13.4-35.0) L 05/01/19 06:52 [place] % (Auto) 8.9 % (0.0-7.3) H 05/01/19 06:52 Eos % (Auto) 3.4 % (0.0-4.3) 05/01/19 06:52 Baso % (Auto) 0.6 % (0.0-1.8) 05/01/19 06:52 Lymph # 1.3 K/mm3 (1.2-5.4) 05/01/19 06:52 [place] # 1.4 K/mm3 (0.0-0.8) H 05/01/19 06:52 Eos # 0.5 K/mm3 (0.0-0.4) H 05/01/19 06:52 Baso # 0.1 K/mm3 (0.0-0.1) 05/01/19 06:52 Add Manual Diff Complete 04/11/19 04:16 Total Counted 100 04/11/19 04:16 Seg Neutrophils % 78.7 % (40.0-70.0) H 05/01/19 06:52 Seg Neuts % (Manual) 71.0 % (40.0-70.0) H 04/11/19 04:16 Band Neutrophils % 1.0 % 04/11/19 04:16 Lymphocytes % (Manual) 17.0 % (13.4-35.0) 04/11/19 04:16 Reactive Lymphs % (Man) 0 % 04/11/19 04:16 Monocytes % (Manual) 8.0 % (0.0-7.3) H 04/11/19 04:16 Eosinophils % (Manual) 2.0 % (0.0-4.3) 04/11/19 04:16 Basophils % (Manual) 1.0 % (0.0-1.8) 04/11/19 04:16 Metamyelocytes % 0 % 04/11/19 04:16 Myelocytes % 0 % 04/11/19 04:16 Promyelocytes % 0 % 04/11/19 04:16 Blast Cells % 0 % 04/11/19 04:16 Nucleated RBC % Not Reportable 04/11/19 04:16 Seg Neutrophils # 12.1 K/mm3 (1.8-7.7) H 05/01/19 06:52 Seg Neutrophils # Man 8.2 K/mm3 (1.8-7.7) H 04/11/19 04:16 Band Neutrophils # 0.1 K/mm3 04/11/19 04:16 Lymphocytes # (Manual) 2.0 K/mm3 (1.2-5.4) 04/11/19 04:16 Abs React Lymphs (Man) 0.0 K/mm3 04/11/19 04:16 Monocytes # (Manual) 0.9 K/mm3 (0.0-0.8) H 04/11/19 04:16 Eosinophils # (Manual) 0.2 K/mm3 (0.0-0.4) 04/11/19 04:16 Basophils # (Manual) 0.1 K/mm3 (0.0-0.1) 04/11/19 04:16 Metamyelocytes # 0.0 K/mm3 04/11/19 04:16 Myelocytes # 0.0 K/mm3 04/11/19 04:16 Promyelocytes # 0.0 K/mm3 04/11/19 04:16 Blast Cells # 0.0 K/mm3 04/11/19 04:16 WBC Morphology Not Reportable 04/11/19 04:16 Hypersegmented Neuts Not Reportable 04/11/19 04:16 Hyposegmented Neuts Not Reportable 04/11/19 04:16 Hypogranular Neuts Not Reportable 04/11/19 04:16 Smudge Cells Not Reportable 04/11/19 04:16 Toxic Granulation Not Reportable 04/11/19 04:16 Toxic Vacuolation Not Reportable 04/11/19 04:16 Dohle Bodies Not Reportable 04/11/19 04:16 Pelger-Huet Anomaly Not Reportable 04/11/19 04:16 Joyce Rods Not Reportable 04/11/19 04:16 Platelet Estimate Consistent w auto 04/11/19 04:16 Clumped Platelets Not Reportable 04/11/19 04:16 Plt Clumps, EDTA Not Reportable 04/11/19 04:16 Large Platelets Not Reportable 04/11/19 04:16 Giant Platelets Not Reportable 04/11/19 04:16 Platelet Satelliting Not Reportable 04/11/19 04:16 Plt Morphology Comment Not Reportable 04/11/19 04:16 RBC Morphology Not Reportable 04/11/19 04:16 Dimorphic RBCs Not Reportable 04/11/19 04:16 Polychromasia Not Reportable 04/11/19 04:16 Hypochromasia Not Reportable 04/11/19 04:16 Poikilocytosis Not Reportable 04/11/19 04:16 Anisocytosis Rare 04/11/19 04:16 Microcytosis Rare 04/11/19 04:16 Macrocytosis Not Reportable 04/11/19 04:16 Spherocytes Not Reportable 04/11/19 04:16 Pappenheimer Bodies Not Reportable 04/11/19 04:16 Sickle Cells Not Reportable 04/11/19 04:16 Target Cells Not Reportable 04/11/19 04:16 Tear Drop Cells Not Reportable 04/11/19 04:16 Ovalocytes Not Reportable 04/11/19 04:16 Stomatocytes Few 03/26/19 Unknown Helmet Cells Not Reportable 04/11/19 04:16 [place] Bodies Not Reportable 04/11/19 04:16 [place] Rings Not Reportable 04/11/19 04:16 Samantha Cells Not Reportable 04/11/19 04:16 Bite Cells Not Reportable 04/11/19 04:16 Crenated Cell Not Reportable 04/11/19 04:16 Elliptocytes Not Reportable 04/11/19 04:16 Acanthocytes (Spur) Not Reportable 04/11/19 04:16 Rouleaux Not Reportable 04/11/19 04:16 Hemoglobin C Crystals Not Reportable 04/11/19 04:16 Schistocytes Not Reportable 04/11/19 04:16 Malaria parasites Not Reportable 04/11/19 04:16 Phil Bodies Not Reportable 04/11/19 04:16 Hem Pathologist Commnt No 04/11/19 04:16 PT 15.3 Sec. (12.2-14.9) H 03/29/19 11:48 INR 1.24 (0.87-1.13) H 03/29/19 11:48 APTT 26.6 Sec. (24.2-36.6) 03/28/19 12:00 Fibrinogen 226 mg/dl (211-480) 03/28/19 12:00 D-Dimer 4845.98 ng/mlDDU (0-234) H 03/28/19 12:00 Heparin Anti-Xa Level 0.23 U.I./ml (0.3-0.7) L 03/28/19 05:13 POC ABG pH 7.401 (7.35-7.45) 04/07/19 12:57 ABG pH 7.388 pH Units (7.350-7.450) 04/06/19 05:20 POC ABG pCO2 41.5 (35-45) 04/07/19 12:57 ABG pCO2 38.5 mm Hg 04/06/19 05:20 POC ABG pO2 107 (80-105) H 04/07/19 12:57 ABG pO2 104.0 mm Hg (80.0-90.0) H 04/06/19 05:20 POC ABG HCO3 25.7 (22-26 mml/L) 04/07/19 12:57 ABG HCO3 22.6 mmol/L (20.0-26.0) 04/06/19 05:20 POC ABG Total CO2 27 (23-27mmol/L) 04/07/19 12:57 POC ABG O2 Sat 98 04/07/19 12:57 ABG O2 Saturation 97.8 % (95.0-99.0) 04/06/19 05:20 ABG O2 Content 10.0 (0.0-44) 04/06/19 05:20 POC ABG Base Excess 1 ((-2) - (+3)mmol/L) 04/07/19 12:57 ABG Base Excess -2.1 mmol/L (-2.0-3.0) L 04/06/19 05:20 ABG Hemoglobin 7.3 gm/dl (14.0-18.0) L 04/06/19 05:20 ABG Carboxyhemoglobin 1.7 % (0.0-5.0) 04/06/19 05:20 ABG Methemoglobin 0.6 % (0.0-1.5) 04/06/19 05:20 Oxyhemoglobin 95.5 % (95.0-99.0) 04/06/19 05:20 FiO2 30 % 04/07/19 12:57 Sodium 135 mmol/L (137-145) L 05/03/19 05:37 Potassium 3.3 mmol/L (3.6-5.0) L 05/03/19 05:37 Chloride 99.0 mmol/L (98-107) 05/03/19 05:37 Carbon Dioxide 24 mmol/L (22-30) 05/03/19 05:37 Anion Gap 15 mmol/L 05/03/19 05:37 BUN 19 mg/dL (9-20) 05/03/19 05:37 Creatinine 1.3 mg/dL (0.8-1.5) 05/03/19 05:37 Estimated GFR 60 ml/min 05/03/19 05:37 BUN/Creatinine Ratio 15 % 05/03/19 05:37 Glucose 94 mg/dL (75-100) 05/03/19 05:37 POC Glucose 87 (70-105) 05/03/19 11:36 Lactic Acid 1.90 mmol/L (0.7-2.0) 03/21/19 21:31 Calcium 10.9 mg/dL (8.4-10.2) H 05/03/19 05:37 Ionized Calcium 7.2 mg/dL (4.8-5.6) H* 04/29/19 14:14 Phosphorus 2.80 mg/dL (2.5-4.5) 05/03/19 05:37 Magnesium 1.50 mg/dL (1.7-2.3) L 05/03/19 05:37 Iron 26 ug/dL (49-181) L 04/02/19 05:03 TIBC 138 mcg/dL (250-450) L 04/02/19 05:03 Ferritin 607.0 ng/mL (13.0-400.0) H 04/02/19 05:03 Total Bilirubin 0.50 mg/dL (0.1-1.2) 05/01/19 06:52 Direct Bilirubin 0.4 mg/dL (0-0.2) H 03/31/19 08:20 Indirect Bilirubin 0.1 mg/dL 03/31/19 08:20 AST 11 units/L (5-40) 05/01/19 06:52 ALT 7 units/L (7-56) 05/01/19 06:52 Alkaline Phosphatase 54 units/L (35-129) 05/01/19 06:52 Total Creatine Kinase 62 units/L (55-170) 04/07/19 05:40 CK-MB (CK-2) 54.3 ng/mL (0.0-4.0) H 03/17/19 07:16 CK-MB (CK-2) Rel Index 0.0 (0-4) 03/17/19 07:16 Troponin T 0.058 ng/mL (0.00-0.029) H 03/17/19 07:16 C-Reactive Protein 7.10 mg/dL (0.00-1.30) H 04/17/19 04:15 Serum Total Protein 5.7 g/dL (6.1-8.1) L 05/01/19 06:52 Total Protein 6.3 g/dL (6.3-8.2) 05/01/19 06:52 Albumin 2.5 g/dL (3.8-4.8) L 05/01/19 06:52 Albumin 3.0 g/dL (3.9-5) L 05/01/19 06:52 Albumin/Globulin Ratio 0.9 % 05/01/19 06:52 Qjlsx-3-[place] 0.5 g/dL (0.2-0.3) H 05/01/19 06:52 Wwipl-8-Dvwmpdnzs 0.9 g/dL (0.5-0.9) 05/01/19 06:52 Beta Globulins 0.4 g/dL (0.2-0.5) 05/01/19 06:52 Gamma Globulins 1.0 g/dL (0.8-1.7) 05/01/19 06:52 Abnorm Protein Band 1 see below 05/01/19 06:52 PEP Interpretation see below H 05/01/19 06:52 Triglycerides 309 mg/dL (2-149) H 03/29/19 06:22 Cholesterol 88 mg/dL (50-199) 03/16/19 22:32 LDL Cholesterol Direct 10 mg/dL (50-130) L 03/16/19 22:32 HDL Cholesterol 7 mg/dL (40-59) L 03/16/19 22:32 Cholesterol/HDL Ratio 12.57 % 03/16/19 22:32 Vitamin B12 903.0 pg/mL (211-911) 04/02/19 05:03 25-Hydroxy Vitamin D2 <4 ng/mL 04/29/19 14:14 1,25 Dihydroxy Vit D2 <8 pg/mL 04/29/19 14:14 25-Hydroxy Vitamin D3 11 ng/mL 04/29/19 14:14 1,25 Dihydroxy Vit D3 <8 pg/mL 04/29/19 14:14 Folate 8.05 ng/mL (7.3-26.0) 04/02/19 05:03 Procalcitonin 25.42 ng/mL (<0.15) 03/27/19 19:21 TSH 2.200 mlU/mL (0.270-4.200) 03/16/19 17:05 Free T4 0.72 ng/dL (0.76-1.46) L 03/16/19 17:05 PTH Intact 8.83 pg/mL (15-65) L 04/29/19 14:14 Urine Color Yellow (Yellow) 04/15/19 22:11 Urine Turbidity Clear (Clear) 04/15/19 22:11 Urine pH 6.0 (5.0-7.0) 04/15/19 22:11 Ur Specific [place] 1.010 (1.003-1.030) 04/15/19 22:11 Urine Protein 30 mg/dl mg/dL (Negative) 04/15/19 22:11 Urine Glucose (UA) Neg mg/dL (Negative) 04/15/19 22:11 Urine Ketones Neg mg/dL (Negative) 04/15/19 22:11 Urine Blood Mod (Negative) 04/15/19 22:11 Urine Nitrite Neg (Negative) 04/15/19 22:11 Urine Bilirubin Neg (Negative) 04/15/19 22:11 Urine Urobilinogen < 2.0 mg/dL (<2.0) 04/15/19 22:11 Ur Leukocyte Esterase Neg (Negative) 04/15/19 22:11 Urine WBC (Auto) 4.0 /HPF (0.0-6.0) 04/15/19 22:11 Urine RBC (Auto) 2.0 /HPF (0.0-6.0) 04/15/19 22:11 U Epithel Cells (Auto) < 1.0 /HPF (0-13.0) 04/15/19 22:11 Amorphous Crystals 1+ 04/05/19 16:50 Urine Mucus Few /HPF 03/17/19 16:05 Urine Sperm 2+ /HPF (DYNAMICS AX SOLUTION ARCHITECT) 03/17/19 16:05 Urine Eosinophils None seen (None Seen) 03/17/19 16:05 Urine Creatinine 106.6 mg/dL (0.1-20.0) H 03/17/19 16:05 Urine Sodium 95 mmol/L 03/17/19 16:05 Vancomycin Trough 11.5 ug/mL (5.0-20.0) 03/18/19 13:19 Random Vancomycin 10.8 ug/mL (0-40.0) 04/14/19 03:55 Salicylates < 0.3 mg/dL (2.8-20.0) L 03/16/19 17:05 Urine Opiates Screen Presumptive negative 03/17/19 16:05 Urine Methadone Screen Presumptive negative 03/17/19 16:05 Acetaminophen < 5.0 ug/mL (10.0-30.0) L 03/16/19 17:05 Ur Barbiturates Screen Presumptive negative 03/17/19 16:05 Ur Phencyclidine Scrn Presumptive negative 03/17/19 16:05 Ur Amphetamines Screen Presumptive negative 03/17/19 16:05 U Benzodiazepines Scrn Presumptive positive 03/17/19 16:05 Urine Cocaine Screen Presumptive negative 03/17/19 16:05 U Marijuana (THC) Screen Presumptive negative 03/17/19 16:05 Drugs of Abuse Note Disclamer 03/17/19 16:05 Plasma/Serum Alcohol < 0.01 % (0-0.07) 03/16/19 17:05 LANDY Screen Negative (Negative) 04/17/19 04:15 Proteinase 3 (PR3) Ab <1.0 AI (<1.0) 04/21/19 04:22 Myeloperoxidase Ab <1.0 AI (<1.0) 04/21/19 04:22 Complement C3 150 mg/dL (82-185) 04/17/19 04:15 Complement C4 37 mg/dL (15-53) 04/17/19 04:15 Hepatitis A IgM Ab Non-reactive (NonReactive) 04/18/19 10:02 Hep Bs Antigen Non-reactive (Negative) 04/18/19 10:02 Hep B Core IgM Ab Non-reactive (NonReactive) 04/18/19 10:02 Hepatitis C Antibody Non-reactive (NonReactive) 04/18/19 10:02 HIV 1&2 Antibody Rapid Non react (Non React) 03/17/19 11:52 HIV P24 Antigen Non react (Non React) 03/17/19 11:52 Influenza A (Rapid) Negative (Negative) 03/17/19 17:00 Influenza B (Rapid) Negative (Negative) 03/17/19 17:00 Group A Strep Rapid Negative (Negative) 03/17/19 17:00 Miscellaneous Test Flexitest 1 03/21/19 12:00 Blood Type A POSITIVE 04/02/19 16:34 Antibody Screen Negative 04/02/19 16:34 Crossmatch See Detail 04/02/19 16:34 Active Medications - Current Medications Current Medications: Generic Name Dose Route Start Last Admin Trade Name Freq PRN Reason Stop Dose Admin Acetaminophen 650 mg 04/02/19 23:26 04/30/19 11:16 Tylenol PO 650 mg Q4H PRN Administration Pain, Mild (1-3),temp>100.5 Acetaminophen/Hydrocodone Bitart 1 each 05/02/19 11:50 05/03/19 11:30 Fowler 5/325 PO 1 each Q6H PRN Administration Pain, Moderate (4-6) Al Hydrox/Mg Hydrox/Simethicone 15 ml 04/30/19 15:15 04/30/19 15:53 Alum-Mag Hydrox-Simeth [phone]/5ml PO 15 ml Q4H PRN Administration Indigestion Albuterol 2.5 mg 03/29/19 13:08 Proventil IH Q4HRT PRN Shortness Of Breath Amiodarone HCl 200 mg 05/04/19 10:00 Cordarone PO DAILY PAOLO Lipase/Protease/Amylase 1 each 04/20/19 13:17 Pancrekarly Purcell 10,500 Unit FEEDTUBE PRN PRN For Clogged Feeding Tube Bacitracin 1 applic 04/17/19 08:00 Antibiotic Oint TP Q4H PRN upper lip sore/open Dextrose 50 gm 04/17/19 08:00 D50w (25gm) Vial IV Q1H PRN Hypoglycemia Hydralazine HCl 20 mg 04/14/19 03:00 04/14/19 03:11 Apresoline IV 20 mg Q4H PRN Administration hypertemsion Hydrophilic Ointment 1 applic 03/16/19 15:50 04/19/19 18:24 Vaseline Lip Therapy TP 1 applic Q2HR PRN Administration Dry Lips Sodium Chloride 100 mls @ 999 mls/hr 04/20/19 08:41 Nacl 0.9% IV NEYMAR PRN Hypotension Sodium Chloride 500 mls @ 50 mls/hr 05/03/19 12:00 Nacl 0.9% 500 Ml IV 05/03/19 21:59 DIRECT PAOLO Sodium Chloride 1,000 mls @ 70 mls/hr 05/04/19 00:00 Nacl 0.9% 1000 Ml IV DIRECT PAOLO Lansoprazole 30 mg 04/11/19 10:00 05/03/19 11:30 Prevacid Solutab FEEDTUBE 30 mg BID PAOLO Administration Melatonin 5 mg 04/26/19 21:00 05/01/19 23:54 Melatonin PO 5 mg QHS PRN Administration Sleep Metoprolol Tartrate 25 mg 04/17/19 20:00 05/03/19 15:20 Lopressor PO 25 mg TID PAOLO Administration Multi-Ingred Cream/Lotion/Oil/Oint 1 applic 03/16/19 15:50 03/19/19 20:10 Artificial Tears Ophth Oint OU 1 applic Q4HR PRN Administration Dry Eye(s) Potassium Chloride 40 meq 05/03/19 08:00 05/03/19 15:23 K-Dur PO 05/03/19 20:01 40 meq Q6H PAOLO Administration Simple Syrup 15 ml 04/20/19 13:17 Simple Syrup FEEDTUBE PRN PRN Hypoglycemia Simple Syrup 30 ml 04/20/19 13:29 05/01/19 17:57 Simple Syrup FEEDTUBE 30 ml PRN PRN Administration Hypoglycemia Sodium Bicarbonate 325 mg 04/20/19 13:17 04/27/19 11:03 Sodium Bicarbonate FEEDTUBE 325 mg PRN PRN Administration For Clogged Feeding Tube Sodium Hypochlorite 1 applic 04/18/19 11:00 05/03/19 11:31 Dakin's Half Strength TP 1 applicatio BID PAOLO Administration Nutrition/Malnutrition Assess - Dietary Evaluation Nutrition/Malnutrition Findings: Nutrition Notes Start: 03/17/19 14:22 Freq: Status: Active Protocol: Document 05/02/19 10:05 DW (Rec: 05/02/19 11:29 DW [id number]) Co-Sign 05/02/19 10:05 LM Nutrition Notes Initial or Follow up Reassessment Current Diagnosis Acute Kidney Injury,Heart Failure Other Pertinent Diagnosis on HD, Septic shock,Multiple organ failure, encephalopathy, Aspiration pneu Current Diet Mechanical Soft Diet w/Ensure Clear BID Labs/Tests Na 136 K 3.5 BUN 21 Pertinent Medications Reviewed Height 6 ft Weight 146.8 kg [place] Body Weight (kg) 80.90 BMI 43.9 Subjective/Other Information FU PO/ONS intake Upon arrival pt was concerned about nectar thick liquids. Animal Nutritionist spoke with MEDICAL REGISTRAR and per MEDICAL REGISTRAR pt has been advanced to thin liquids. Pt also stated he does not like the hospital food and eats <25% but is drinknig 100% ONS. Noted 0% breakfast consumed at bedside Percent of energy/protein needs met: 12%/7% Burn Absent Trauma Absent Minimum of two criteria No #1 Nutrition Diagnosis Inadequate oral intake As Evidenced by Signs and Symptoms Pt meeting 12% kcal and 7% PRO needs via ONS only Diagnosis Progress(for reassessment Worsened documentation) Is patient on ventilator? No Is Patient Ambulatory and/or Out of Bed No REE-([facility]-confined to bed) 2871.756 Kcal/Kg value to use for calculation 14 Approximate Energy Requirements Using 2054 kcal/Kg Calculation Used for Recommendations Kcal/kg Additional Notes Protein: 116-145g (1.2-1.5g/kg , AjdBW 97 kg) Fluids:1 ml/kcal or per MD Nutrition Intervention Change Diet Order: Continue Current Diet Add Supplement/Snack (indicate name/kcal Ensure Clear BID /protein ) Provides kCal: 480 Provides Protein (gm) 16 Goal #1 Meet atleast 75% of kcal/PRO needs via PO and ONS intakes Anticipated Discharge Needs: Unable to determine at this time Follow-Up By: 05/04/19 Additional Comments FU PO/ONS intake
--- NOTE | 2019-05-03 18:12 | Progress Note ---
Assessment and Plan Patient awake and more oriented. patient counselled on using O2. O2 saturation is 95%. No acute respiratory distress. Patient afebrile and has leukocytosis. Patients heart rate and blood pressure running good. Patients calcium still h igh, 10.9. Patient receiving normal saline. Pt underwent stress test today. Results are pending. Patient Told he is scheduled for Cardiac Cath tomorrow. . . - Patient Problems (1) Acute respiratory failure Current Visit: Yes Status: Acute Qualifiers: Respiratory failure complication: hypoxia Qualified Code(s): J96.01 - Acute respiratory failure with hypoxia Plan to address problem: O2 2L as needed for shortness of breath or desaturation. Albuterol/atrovent aerosol treatments q 6 hours. Continue Prevacid. Recommend DVT prophylaxis. SCDs (2) Altered mental status Current Visit: Yes Status: Acute Qualifiers: Altered mental status type: unspecified Qualified Code(s): R41.82 - Altered mental status, unspecified Plan to address problem: Management as per primary care and neurology. (3) Atrial fibrillation with RVR Current Visit: Yes Status: Acute Plan to address problem: Management as per cardiology. (4) Cardiopulmonary arrest Current Visit: Yes Status: Acute Plan to address problem: Patient resuscitated. Presently resting on 2 litres o2. (5) Acute renal failure Current Visit: Yes Status: Acute Qualifiers: Acute renal failure type: with acute tubular necrosis Qualified Code(s): N17.0 - Acute kidney failure with tubular necrosis Plan to address problem: Management as per nephrology. (6) Aspiration pneumonia Current Visit: Yes Status: Acute Qualifiers: Aspiration pneumonia type: unspecified Plan to address problem: Patient treated with Azactam and zyvox. (7) GI bleed Current Visit: Yes Status: Acute Plan to address problem: Management as per gastroenterology. Subjective Date of service: 05/03/19 Principal diagnosis: anemia - DVT rt IJ Interval history: Patient awake and more oriented. patient counselled on using O2. O2 saturation is 95%. No acute respiratory distress. Patient afebrile and has leukocytosis. Patients heart rate and blood pressure running good. Patients calcium still high, 10.9. Patient receiving normal saline. Pt underwent stress test today. Results are pending. Patient Told he is scheduled for Cardiac Cath tomorrow. . Objective Vital Signs - 12hr 05/03/19 05/03/1919 09:15 09:26 09:33 Temperature Pulse Rate Respiratory Rate Blood Pressure 131/76 124/80 108/51 O2 Sat by Pulse Oximetry 05/03/19 05/03/19 05/03/19 09:35 09:36 09:38 Temperature Pulse Rate Respiratory Rate Blood Pressure 102/51 103/49 104/57 O2 Sat by Pulse Oximetry 05/03/19 05/03/19 05/03/19 09:39 11:29 16:21 Temperature 98.7 F Pulse Rate 98 H 74 Respiratory 20 Rate Blood Pressure 103/58 104/67 O2 Sat by Pulse 92 95 Oximetry Constitutional: no acute distress, alert Eyes: icteric ENT: oropharynx moist, other (extubated) Neck: supple, no lymphadenopathy, no JVD, other (large neck circumference) Effort: mildly labored Ascultation: Bilateral: diminished breath sounds, rales, rhonchi (scant) Percussion: Bilateral: not dull Cardiovascular: irregular rhythm, other ( S1,S2) Gastrointestinal: normoactive bowel sounds, soft, non-tender Integumentary: normal Extremities: no cyanosis, pink and warm, pulses normal, no ischemia or petechiae Neurologic: normal mental status, non-focal exam (grossly), pupils equal and round, CN II-XII normal, other (very weak) Psychiatric: mood appropriate, affect normal CBC and BMP: 05/04/19 06:49 05/04/19 06:49 ABG, PT/INR, D-dimer: ABG POC ABG pH 7.401 (7.35-7.45) 04/07/19 12:57 ABG pH 7.388 pH Units (7.350-7.450) 04/06/19 05:20 POC ABG pCO2 41.5 (35-45) 04/07/19 12:57 ABG pCO2 38.5 mm Hg 04/06/19 05:20 POC ABG pO2 107 (80-105) H 04/07/19 12:57 ABG pO2 104.0 mm Hg (80.0-90.0) H 04/06/19 05:20 POC ABG HCO3 25.7 (22-26 mml/L) 04/07/19 12:57 POC ABG Total CO2 27 (23-27mmol/L) 04/07/19 12:57 POC ABG O2 Sat 98 04/07/19 12:57 ABG O2 Saturation 97.8 % (95.0-99.0) 04/06/19 05:20 PT/INR, D-dimer PT 15.3 Sec. (12.2-14.9) H 03/29/19 11:48 INR 1.24 (0.87-1.13) H 03/29/19 11:48 D-Dimer 4845.98 ng/mlDDU (0-234) H 03/28/19 12:00 Abnormal lab findings: Abnormal Labs 03/16/19 03/16/19 03/16/19 15:32 16:03 16:05 WBC 27.0 H RBC 5.55 H Hgb 15.7 H Hct 47.1 H MCV MCHC RDW Plt Count 75 L Lymph % (Auto) [place] % (Auto) Lymph # [place] # Eos # Seg Neutrophils % Seg Neuts % (Manual) 85.0 H Lymphocytes % (Manual) 2.0 L Monocytes % (Manual) Nucleated RBC % Seg Neutrophils # Seg Neutrophils # Man 23.0 H Lymphocytes # (Manual) 0.5 L Monocytes # (Manual) PT INR D-Dimer Heparin Anti-Xa Level POC ABG pH ABG pH POC ABG pCO2 POC ABG pO2 ABG pO2 ABG HCO3 ABG O2 Saturation ABG Base Excess ABG Hemoglobin Oxyhemoglobin Sodium 127 L Potassium Chloride 87.8 L Carbon Dioxide 17 L BUN 49 H Creatinine 5.8 H Glucose 150 H POC Glucose 118 H Lactic Acid Calcium 6.6 L Ionized Calcium Phosphorus Magnesium 1.10 L Iron TIBC Ferritin Total Bilirubin Direct Bilirubin AST ALT Alkaline Phosphatase Total Creatine Kinase 60083 H CK-MB (CK-2) Troponin T C-Reactive Protein Serum Total Protein Total Protein Albumin Piygu-5-Ejkpywrkz Fkycz-1-Idtfaimrw PEP Interpretation Triglycerides LDL Cholesterol Direct HDL Cholesterol Free T4 PTH Intact Urine WBC (Auto) Urine Creatinine Salicylates Acetaminophen Crossmatch 03/16/19 03/16/19 03/16/19 16:59 17:05 17:05 WBC RBC Hgb Hct MCV MCHC RDW Plt Count Lymph % (Auto) [place] % (Auto) Lymph # [place] # Eos # Seg Neutrophils % Seg Neuts % (Manual) Lymphocytes % (Manual) Monocytes % (Manual) Nucleated RBC % Seg Neutrophils # Seg Neutrophils # Man Lymphocytes # (Manual) Monocytes # (Manual) PT INR D-Dimer Heparin Anti-Xa Level POC ABG pH 7.297 L ABG pH POC ABG pCO2 33.0 L POC ABG pO2 ABG pO2 ABG HCO3 ABG O2 Saturation ABG Base Excess ABG Hemoglobin Oxyhemoglobin Sodium Potassium Chloride Carbon Dioxide BUN Creatinine Glucose POC Glucose Lactic Acid Calcium Ionized Calcium Phosphorus Magnesium Iron TIBC Ferritin Total Bilirubin Direct Bilirubin AST ALT Alkaline Phosphatase Total Creatine Kinase 89056 H CK-MB (CK-2) 83.1 H Troponin T C-Reactive Protein Serum Total Protein Total Protein Albumin Vrjlg-9-Uwnsfcutk Pidvc-6-Moegatzpx PEP Interpretation Triglycerides LDL Cholesterol Direct HDL Cholesterol Free T4 0.72 L PTH Intact Urine WBC (Auto) Urine Creatinine Salicylates Acetaminophen Crossmatch 03/16/19 03/16/19 03/16/19 17:05 17:05 17:05 WBC RBC Hgb Hct MCV MCHC RDW Plt Count Lymph % (Auto) [place] % (Auto) Lymph # [place] # Eos # Seg Neutrophils % Seg Neuts % (Manual) Lymphocytes % (Manual) Monocytes % (Manual) Nucleated RBC % Seg Neutrophils # Seg Neutrophils # Man Lymphocytes # (Manual) Monocytes # (Manual) PT INR D-Dimer Heparin Anti-Xa Level POC ABG pH ABG pH POC ABG pCO2 POC ABG pO2 ABG pO2 ABG HCO3 ABG O2 Saturation ABG Base Excess ABG Hemoglobin Oxyhemoglobin Sodium Potassium Chloride Carbon Dioxide BUN Creatinine Glucose POC Glucose Lactic Acid 5.10 H* Calcium Ionized Calcium Phosphorus Magnesium Iron TIBC Ferritin Total Bilirubin Direct Bilirubin AST ALT Alkaline Phosphatase Total Creatine Kinase CK-MB (CK-2) Troponin T C-Reactive Protein Serum Total Protein Total Protein Albumin Yqxeo-8-Jgndbfqtj Auspe-6-Elvjehljp PEP Interpretation Triglycerides LDL Cholesterol Direct HDL Cholesterol Free T4 PTH Intact Urine WBC (Auto) Urine Creatinine Salicylates < 0.3 L Acetaminophen < 5.0 L Crossmatch 03/16/19 03/16/19 03/16/19 17:05 17:05 20:35 WBC RBC Hgb Hct MCV MCHC RDW Plt Count Lymph % (Auto) [place] % (Auto) Lymph # [place] # Eos # Seg Neutrophils % Seg Neuts % (Manual) Lymphocytes % (Manual) Monocytes % (Manual) Nucleated RBC % Seg Neutrophils # Seg Neutrophils # Man Lymphocytes # (Manual) Monocytes # (Manual) PT 15.9 H INR 1.30 H D-Dimer Heparin Anti-Xa Level POC ABG pH ABG pH POC ABG pCO2 POC ABG pO2 ABG pO2 ABG HCO3 ABG O2 Saturation ABG Base Excess ABG Hemoglobin Oxyhemoglobin Sodium Potassium Chloride Carbon Dioxide BUN Creatinine Glucose POC Glucose Lactic Acid 3.30 H* Calcium Ionized Calcium Phosphorus Magnesium Iron TIBC Ferritin Total Bilirubin 6.20 H Direct Bilirubin 5.9 H AST 800 H ALT 120 H Alkaline Phosphatase Total Creatine Kinase CK-MB (CK-2) Troponin T C-Reactive Protein Serum Total Protein Total Protein 4.4 L Albumin 2.4 L Nuamk-2-Ogsbqlflm Qqtde-5-Fojahmwbt PEP Interpretation Triglycerides LDL Cholesterol Direct HDL Cholesterol Free T4 PTH Intact Urine WBC (Auto) Urine Creatinine Salicylates Acetaminophen Crossmatch 03/16/19 03/16/19 03/16/19 21:45 22:32 Unknown WBC RBC Hgb Hct MCV MCHC RDW Plt Count Lymph % (Auto) [place] % (Auto) Lymph # [place] # Eos # Seg Neutrophils % Seg Neuts % (Manual) Lymphocytes % (Manual) Monocytes % (Manual) Nucleated RBC % Seg Neutrophils # Seg Neutrophils # Man Lymphocytes # (Manual) Monocytes # (Manual) PT INR D-Dimer Heparin Anti-Xa Level POC ABG pH ABG pH POC ABG pCO2 POC ABG pO2 ABG pO2 ABG HCO3 ABG O2 Saturation ABG Base Excess ABG Hemoglobin Oxyhemoglobin Sodium Potassium Chloride Carbon Dioxide BUN Creatinine Glucose POC Glucose Lactic Acid 3.30 H* 3.00 H* Calcium Ionized Calcium Phosphorus Magnesium Iron TIBC Ferritin Total Bilirubin Direct Bilirubin AST ALT Alkaline Phosphatase Total Creatine Kinase CK-MB (CK-2) Troponin T 0.047 H D C-Reactive Protein Serum Total Protein Total Protein Albumin Rkavz-4-Bczfjanxh Zjgus-0-Ikpbvjcvh PEP Interpretation Triglycerides 395 H LDL Cholesterol Direct 10 L HDL Cholesterol 7 L Free T4 PTH Intact Urine WBC (Auto) Urine Creatinine Salicylates Acetaminophen Crossmatch 03/17/19 03/17/19 03/17/19 03:45 03:45 03:45 WBC RBC Hgb Hct MCV MCHC RDW Plt Count Lymph % (Auto) [place] % (Auto) Lymph # [place] # Eos # Seg Neutrophils % Seg Neuts % (Manual) Lymphocytes % (Manual) Monocytes % (Manual) Nucleated RBC % Seg Neutrophils # Seg Neutrophils # Man Lymphocytes # (Manual) Monocytes # (Manual) PT INR D-Dimer Heparin Anti-Xa Level POC ABG pH ABG pH POC ABG pCO2 POC ABG pO2 ABG pO2 ABG HCO3 ABG O2 Saturation ABG Base Excess ABG Hemoglobin Oxyhemoglobin Sodium 131 L Potassium Chloride 88.9 L Carbon Dioxide BUN 53 H Creatinine 7.1 H Glucose POC Glucose Lactic Acid 4.10 H* Calcium 5.4 L* D Ionized Calcium Phosphorus 7.30 H Magnesium 1.60 L Iron TIBC Ferritin Total Bilirubin 5.90 H Direct Bilirubin AST 801 H ALT 109 H Alkaline Phosphatase Total Creatine Kinase 65722 H 72514 H CK-MB (CK-2) 41.5 H Troponin T 0.054 H C-Reactive Protein Serum Total Protein Total Protein 4.5 L Albumin 2.0 L Rawei-7-Maqjhsnim Jdqrp-4-Txbsqeqgv PEP Interpretation Triglycerides LDL Cholesterol Direct HDL Cholesterol Free T4 PTH Intact Urine WBC (Auto) Urine Creatinine Salicylates Acetaminophen Crossmatch 03/17/19 03/17/19 03/17/19 05:47 07:16 07:16 WBC RBC Hgb Hct MCV MCHC RDW Plt Count Lymph % (Auto) [place] % (Auto) Lymph # [place] # Eos # Seg Neutrophils % Seg Neuts % (Manual) Lymphocytes % (Manual) Monocytes % (Manual) Nucleated RBC % Seg Neutrophils # Seg Neutrophils # Man Lymphocytes # (Manual) Monocytes # (Manual) PT INR D-Dimer Heparin Anti-Xa Level POC ABG pH 7.193 L ABG pH POC ABG pCO2 45.2 H POC ABG pO2 65 L ABG pO2 ABG HCO3 ABG O2 Saturation ABG Base Excess ABG Hemoglobin Oxyhemoglobin Sodium Potassium Chloride Carbon Dioxide BUN Creatinine Glucose POC Glucose Lactic Acid 5.50 H* Calcium Ionized Calcium Phosphorus Magnesium Iron TIBC Ferritin Total Bilirubin Direct Bilirubin AST ALT Alkaline Phosphatase Total Creatine Kinase 02050 H CK-MB (CK-2) 54.3 H Troponin T 0.058 H C-Reactive Protein Serum Total Protein Total Protein Albumin Dbydk-5-Gfadihclt Yihim-7-Epxvrdgiu PEP Interpretation Triglycerides LDL Cholesterol Direct HDL Cholesterol Free T4 PTH Intact Urine WBC (Auto) Urine Creatinine Salicylates Acetaminophen Crossmatch 03/17/19 03/17/19 03/17/19 11:52 12:51 13:01 WBC RBC Hgb Hct MCV MCHC RDW Plt Count Lymph % (Auto) [place] % (Auto) Lymph # [place] # Eos # Seg Neutrophils % Seg Neuts % (Manual) Lymphocytes % (Manual) Monocytes % (Manual) Nucleated RBC % Seg Neutrophils # Seg Neutrophils # Man Lymphocytes # (Manual) Monocytes # (Manual) PT INR D-Dimer Heparin Anti-Xa Level POC ABG pH 7.154 L ABG pH POC ABG pCO2 34.3 L POC ABG pO2 73 L ABG pO2 ABG HCO3 ABG O2 Saturation ABG Base Excess ABG Hemoglobin Oxyhemoglobin Sodium Potassium Chloride Carbon Dioxide BUN Creatinine Glucose POC Glucose 60 L Lactic Acid 8.20 H* Calcium Ionized Calcium Phosphorus Magnesium Iron TIBC Ferritin Total Bilirubin Direct Bilirubin AST ALT Alkaline Phosphatase Total Creatine Kinase CK-MB (CK-2) Troponin T C-Reactive Protein Serum Total Protein Total Protein Albumin Fneuu-8-Hmqzwbohl Zghsd-6-Iwxvcyage PEP Interpretation Triglycerides LDL Cholesterol Direct HDL Cholesterol Free T4 PTH Intact Urine WBC (Auto) Urine Creatinine Salicylates Acetaminophen Crossmatch 03/17/19 03/17/19 03/17/19 14:37 14:37 14:37 WBC 29.3 H RBC Hgb Hct MCV MCHC RDW 15.8 H Plt Count 45 L Lymph % (Auto) [place] % (Auto) Lymph # [place] # Eos # Seg Neutrophils % Seg Neuts % (Manual) 81.0 H Lymphocytes % (Manual) 1.0 L Monocytes % (Manual) 15.0 H Nucleated RBC % Seg Neutrophils # Seg Neutrophils # Man 23.7 H Lymphocytes # (Manual) 0.3 L Monocytes # (Manual) 4.4 H PT INR D-Dimer Heparin Anti-Xa Level POC ABG pH ABG pH POC ABG pCO2 POC ABG pO2 ABG pO2 ABG HCO3 ABG O2 Saturation ABG Base Excess ABG Hemoglobin Oxyhemoglobin Sodium Potassium Chloride Carbon Dioxide BUN Creatinine Glucose POC Glucose Lactic Acid 4.90 H* Calcium Ionized Calcium Phosphorus Magnesium Iron TIBC Ferritin Total Bilirubin Direct Bilirubin AST ALT Alkaline Phosphatase Total Creatine Kinase CK-MB (CK-2) Troponin T C-Reactive Protein 24.90 H Serum Total Protein Total Protein Albumin Vlkek-2-Ilsfntzyr Hqykf-7-Znjvpwnkx PEP Interpretation Triglycerides LDL Cholesterol Direct HDL Cholesterol Free T4 PTH Intact Urine WBC (Auto) Urine Creatinine Salicylates Acetaminophen Crossmatch 03/17/19 03/17/19 03/17/19 16:05 16:05 17:02 WBC RBC Hgb Hct MCV MCHC RDW Plt Count Lymph % (Auto) [place] % (Auto) Lymph # [place] # Eos # Seg Neutrophils % Seg Neuts % (Manual) Lymphocytes % (Manual) Monocytes % (Manual) Nucleated RBC % Seg Neutrophils # Seg Neutrophils # Man Lymphocytes # (Manual) Monocytes # (Manual) PT INR D-Dimer Heparin Anti-Xa Level POC ABG pH 7.183 L ABG pH POC ABG pCO2 POC ABG pO2 65 L ABG pO2 ABG HCO3 ABG O2 Saturation ABG Base Excess ABG Hemoglobin Oxyhemoglobin Sodium Potassium Chloride Carbon Dioxide BUN Creatinine Glucose POC Glucose Lactic Acid Calcium Ionized Calcium Phosphorus Magnesium Iron TIBC Ferritin Total Bilirubin Direct Bilirubin AST ALT Alkaline Phosphatase Total Creatine Kinase CK-MB (CK-2) Troponin T C-Reactive Protein Serum Total Protein Total Protein Albumin Gtbzg-1-Yydzvrcml Leqsy-7-Vddlqhshl PEP Interpretation Triglycerides LDL Cholesterol Direct HDL Cholesterol Free T4 PTH Intact Urine WBC (Auto) 30.0 H Urine Creatinine 106.6 H Salicylates Acetaminophen Crossmatch 03/18/19 03/18/19 03/18/19 05:12 05:16 05:53 WBC RBC Hgb Hct MCV MCHC RDW Plt Count Lymph % (Auto) [place] % (Auto) Lymph # [place] # Eos # Seg Neutrophils % Seg Neuts % (Manual) Lymphocytes % (Manual) Monocytes % (Manual) Nucleated RBC % Seg Neutrophils # Seg Neutrophils # Man Lymphocytes # (Manual) Monocytes # (Manual) PT INR D-Dimer Heparin Anti-Xa Level POC ABG pH 7.257 L ABG pH POC ABG pCO2 31.6 L POC ABG pO2 69 L ABG pO2 ABG HCO3 ABG O2 Saturation ABG Base Excess ABG Hemoglobin Oxyhemoglobin Sodium Potassium Chloride Carbon Dioxide BUN Creatinine Glucose POC Glucose 141 H Lactic Acid 5.00 H* Calcium Ionized Calcium Phosphorus Magnesium Iron TIBC Ferritin Total Bilirubin Direct Bilirubin AST ALT Alkaline Phosphatase Total Creatine Kinase CK-MB (CK-2) Troponin T C-Reactive Protein Serum Total Protein Total Protein Albumin Qpbjg-8-Niftksuxj Lmcti-2-Lxdwygacn PEP Interpretation Triglycerides LDL Cholesterol Direct HDL Cholesterol Free T4 PTH Intact Urine WBC (Auto) Urine Creatinine Salicylates Acetaminophen Crossmatch 03/18/19 03/18/19 03/18/19 06:57 08:40 08:40 WBC 31.7 H RBC Hgb Hct MCV MCHC RDW 15.5 H Plt Count 35 L Lymph % (Auto) [place] % (Auto) Lymph # [place] # Eos # Seg Neutrophils % Seg Neuts % (Manual) Lymphocytes % (Manual) Monocytes % (Manual) Nucleated RBC % Seg Neutrophils # Seg Neutrophils # Man Lymphocytes # (Manual) Monocytes # (Manual) PT INR D-Dimer Heparin Anti-Xa Level POC ABG pH ABG pH POC ABG pCO2 POC ABG pO2 ABG pO2 ABG HCO3 ABG O2 Saturation ABG Base Excess ABG Hemoglobin Oxyhemoglobin Sodium 132 L Potassium 5.5 H D Chloride 88.5 L Carbon Dioxide 18 L BUN 71 H Creatinine 8.1 H Glucose 205 H POC Glucose Lactic Acid 5.00 H* Calcium 4.1 L* D Ionized Calcium Phosphorus Magnesium 2.40 H Iron TIBC Ferritin Total Bilirubin 7.50 H Direct Bilirubin AST 1088 H ALT 159 H Alkaline Phosphatase 190 H Total Creatine Kinase 564245 H CK-MB (CK-2) Troponin T C-Reactive Protein Serum Total Protein Total Protein 4.7 L Albumin 1.8 L Ypnnz-9-Cpyrhauab Asosr-4-Kojqrvvlh PEP Interpretation Triglycerides LDL Cholesterol Direct HDL Cholesterol Free T4 PTH Intact Urine WBC (Auto) Urine Creatinine Salicylates Acetaminophen Crossmatch 03/18/19 03/18/19 03/18/19 12:33 12:50 13:19 WBC RBC Hgb Hct MCV MCHC RDW Plt Count Lymph % (Auto) [place] % (Auto) Lymph # [place] # Eos # Seg Neutrophils % Seg Neuts % (Manual) Lymphocytes % (Manual) Monocytes % (Manual) Nucleated RBC % Seg Neutrophils # Seg Neutrophils # Man Lymphocytes # (Manual) Monocytes # (Manual) PT INR D-Dimer Heparin Anti-Xa Level POC ABG pH 7.282 L ABG pH POC ABG pCO2 POC ABG pO2 67 L ABG pO2 ABG HCO3 ABG O2 Saturation ABG Base Excess ABG Hemoglobin Oxyhemoglobin Sodium Potassium Chloride Carbon Dioxide BUN Creatinine Glucose POC Glucose 129 H Lactic Acid 3.30 H* Calcium Ionized Calcium Phosphorus Magnesium Iron TIBC Ferritin Total Bilirubin Direct Bilirubin AST ALT Alkaline Phosphatase Total Creatine Kinase CK-MB (CK-2) Troponin T C-Reactive Protein Serum Total Protein Total Protein Albumin Vuwxt-0-Wpoyoyekw Qxaoh-1-Ufeyehdor PEP Interpretation Triglycerides LDL Cholesterol Direct HDL Cholesterol Free T4 PTH Intact Urine WBC (Auto) Urine Creatinine Salicylates Acetaminophen Crossmatch 03/18/19 03/18/19 03/18/19 13:19 16:50 18:11 WBC RBC Hgb Hct MCV MCHC RDW Plt Count Lymph % (Auto) [place] % (Auto) Lymph # [place] # Eos # Seg Neutrophils % Seg Neuts % (Manual) Lymphocytes % (Manual) Monocytes % (Manual) Nucleated RBC % Seg Neutrophils # Seg Neutrophils # Man Lymphocytes # (Manual) Monocytes # (Manual) PT INR D-Dimer Heparin Anti-Xa Level POC ABG pH ABG pH POC ABG pCO2 POC ABG pO2 59 L ABG pO2 ABG HCO3 ABG O2 Saturation ABG Base Excess ABG Hemoglobin Oxyhemoglobin Sodium Potassium Chloride Carbon Dioxide BUN Creatinine Glucose POC Glucose 151 H Lactic Acid Calcium 4.2 L* Ionized Calcium Phosphorus Magnesium Iron TIBC Ferritin Total Bilirubin Direct Bilirubin AST ALT Alkaline Phosphatase Total Creatine Kinase 276586 H CK-MB (CK-2) Troponin T C-Reactive Protein Serum Total Protein Total Protein Albumin Ruylg-7-Mlkoqgtkh Lzecs-1-Egndqkwdn PEP Interpretation Triglycerides LDL Cholesterol Direct HDL Cholesterol Free T4 PTH Intact Urine WBC (Auto) Urine Creatinine Salicylates Acetaminophen Crossmatch 03/18/19 03/18/19 03/19/19 18:20 23:39 01:42 WBC RBC Hgb Hct MCV MCHC RDW Plt Count Lymph % (Auto) [place] % (Auto) Lymph # [place] # Eos # Seg Neutrophils % Seg Neuts % (Manual) Lymphocytes % (Manual) Monocytes % (Manual) Nucleated RBC % Seg Neutrophils # Seg Neutrophils # Man Lymphocytes # (Manual) Monocytes # (Manual) PT INR D-Dimer Heparin Anti-Xa Level POC ABG pH 7.345 L ABG pH 7.285 L POC ABG pCO2 POC ABG pO2 59 L ABG pO2 44.0 L ABG HCO3 ABG O2 Saturation 70.9 L ABG Base Excess -5.7 L ABG Hemoglobin 11.9 L Oxyhemoglobin 69.6 L Sodium Potassium Chloride Carbon Dioxide BUN Creatinine Glucose POC Glucose 152 H Lactic Acid Calcium Ionized Calcium Phosphorus Magnesium Iron TIBC Ferritin Total Bilirubin Direct Bilirubin AST ALT Alkaline Phosphatase Total Creatine Kinase CK-MB (CK-2) Troponin T C-Reactive Protein Serum Total Protein Total Protein Albumin Iqdgz-4-Gmwtbkjlx Tkhav-6-Fbzvwuwin PEP Interpretation Triglycerides LDL Cholesterol Direct HDL Cholesterol Free T4 PTH Intact Urine WBC (Auto) Urine Creatinine Salicylates Acetaminophen Crossmatch 0903/19/19 03/19/19 04:00 04:00 05:35 WBC 36.5 H RBC Hgb Hct MCV MCHC RDW 15.8 H Plt Count 35 L Lymph % (Auto) [place] % (Auto) Lymph # [place] # Eos # Seg Neutrophils % Seg Neuts % (Manual) Lymphocytes % (Manual) Monocytes % (Manual) Nucleated RBC % Seg Neutrophils # Seg Neutrophils # Man Lymphocytes # (Manual) Monocytes # (Manual) PT INR D-Dimer Heparin Anti-Xa Level POC ABG pH ABG pH 7.265 L POC ABG pCO2 POC ABG pO2 ABG pO2 35.4 L* ABG HCO3 ABG O2 Saturation 54.4 L ABG Base Excess -6.7 L ABG Hemoglobin 12.9 L Oxyhemoglobin 53.4 L Sodium 132 L Potassium 5.7 H Chloride 89.8 L Carbon Dioxide 19 L BUN 62 H Creatinine 6.4 H Glucose 151 H POC Glucose Lactic Acid Calcium 5.2 L* D Ionized Calcium Phosphorus Magnesium Iron TIBC Ferritin Total Bilirubin 7.80 H Direct Bilirubin AST 682 H ALT 130 H Alkaline Phosphatase 167 H Total Creatine Kinase CK-MB (CK-2) Troponin T C-Reactive Protein Serum Total Protein Total Protein 4.8 L Albumin 2.3 L Prnmt-0-Zldgueizd Opjcv-5-Atnqkfgvn PEP Interpretation Triglycerides LDL Cholesterol Direct HDL Cholesterol Free T4 PTH Intact Urine WBC (Auto) Urine Creatinine Salicylates Acetaminophen Crossmatch 03/19/19 03/19/19 03/19/19 05:49 09:16 09:50 WBC RBC Hgb Hct MCV MCHC RDW Plt Count Lymph % (Auto) [place] % (Auto) Lymph # [place] # Eos # Seg Neutrophils % Seg Neuts % (Manual) Lymphocytes % (Manual) Monocytes % (Manual) Nucleated RBC % Seg Neutrophils # Seg Neutrophils # Man Lymphocytes # (Manual) Monocytes # (Manual) PT INR D-Dimer Heparin Anti-Xa Level POC ABG pH 7.222 L ABG pH POC ABG pCO2 56.6 H POC ABG pO2 ABG pO2 ABG HCO3 ABG O2 Saturation ABG Base Excess ABG Hemoglobin Oxyhemoglobin Sodium Potassium Chloride Carbon Dioxide BUN Creatinine Glucose POC Glucose 154 H Lactic Acid 2.70 H* Calcium Ionized Calcium Phosphorus Magnesium Iron TIBC Ferritin Total Bilirubin Direct Bilirubin AST ALT Alkaline Phosphatase Total Creatine Kinase CK-MB (CK-2) Troponin T C-Reactive Protein Serum Total Protein Total Protein Albumin Homyw-1-Lhidvhdse Chhil-4-Vvrifstqr PEP Interpretation Triglycerides LDL Cholesterol Direct HDL Cholesterol Free T4 PTH Intact Urine WBC (Auto) Urine Creatinine Salicylates Acetaminophen Crossmatch 03/19/19 03/19/19 03/19/19 09:50 11:28 17:58 WBC RBC Hgb Hct MCV MCHC RDW Plt Count Lymph % (Auto) [place] % (Auto) Lymph # [place] # Eos # Seg Neutrophils % Seg Neuts % (Manual) Lymphocytes % (Manual) Monocytes % (Manual) Nucleated RBC % Seg Neutrophils # Seg Neutrophils # Man Lymphocytes # (Manual) Monocytes # (Manual) PT INR D-Dimer Heparin Anti-Xa Level POC ABG pH 7.250 L ABG pH POC ABG pCO2 52.6 H POC ABG pO2 ABG pO2 ABG HCO3 ABG O2 Saturation ABG Base Excess ABG Hemoglobin Oxyhemoglobin Sodium Potassium Chloride Carbon Dioxide BUN Creatinine Glucose POC Glucose 160 H Lactic Acid Calcium Ionized Calcium Phosphorus Magnesium Iron TIBC Ferritin Total Bilirubin Direct Bilirubin AST ALT Alkaline Phosphatase Total Creatine Kinase 95688 H CK-MB (CK-2) Troponin T C-Reactive Protein Serum Total Protein Total Protein Albumin Siotl-3-Jvywfdzjk Pejqv-8-Atntdgeeo PEP Interpretation Triglycerides LDL Cholesterol Direct HDL Cholesterol Free T4 PTH Intact Urine WBC (Auto) Urine Creatinine Salicylates Acetaminophen Crossmatch 03/19/19 03/19/19 03/20/19 19:48 21:03 02:16 WBC RBC Hgb Hct MCV MCHC RDW Plt Count Lymph % (Auto) [place] % (Auto) Lymph # [place] # Eos # Seg Neutrophils % Seg Neuts % (Manual) Lymphocytes % (Manual) Monocytes % (Manual) Nucleated RBC % Seg Neutrophils # Seg Neutrophils # Man Lymphocytes # (Manual) Monocytes # (Manual) PT INR D-Dimer Heparin Anti-Xa Level POC ABG pH 7.279 L ABG pH POC ABG pCO2 50.3 H POC ABG pO2 129 H ABG pO2 ABG HCO3 ABG O2 Saturation ABG Base Excess ABG Hemoglobin Oxyhemoglobin Sodium Potassium Chloride Carbon Dioxide BUN Creatinine Glucose POC Glucose 119 H 119 H Lactic Acid Calcium Ionized Calcium Phosphorus Magnesium Iron TIBC Ferritin Total Bilirubin Direct Bilirubin AST ALT Alkaline Phosphatase Total Creatine Kinase CK-MB (CK-2) Troponin T C-Reactive Protein Serum Total Protein Total Protein Albumin Fotjn-7-Vtjmovewl Arkmg-3-Ttbmqelqv PEP Interpretation Triglycerides LDL Cholesterol Direct HDL Cholesterol Free T4 PTH Intact Urine WBC (Auto) Urine Creatinine Salicylates Acetaminophen Crossmatch 03/20/19 03/20/19 03/20/19 04:23 05:05 09:30 WBC 36.3 H RBC Hgb Hct MCV MCHC RDW 15.5 H Plt Count 29 L Lymph % (Auto) [place] % (Auto) Lymph # [place] # Eos # Seg Neutrophils % Seg Neuts % (Manual) Lymphocytes % (Manual) Monocytes % (Manual) Nucleated RBC % Seg Neutrophils # Seg Neutrophils # Man Lymphocytes # (Manual) Monocytes # (Manual) PT INR D-Dimer Heparin Anti-Xa Level POC ABG pH ABG pH POC ABG pCO2 POC ABG pO2 280 H ABG pO2 ABG HCO3 ABG O2 Saturation ABG Base Excess ABG Hemoglobin Oxyhemoglobin Sodium Potassium Chloride Carbon Dioxide BUN Creatinine Glucose POC Glucose 115 H Lactic Acid Calcium Ionized Calcium Phosphorus Magnesium Iron TIBC Ferritin Total Bilirubin Direct Bilirubin AST ALT Alkaline Phosphatase Total Creatine Kinase CK-MB (CK-2) Troponin T C-Reactive Protein Serum Total Protein Total Protein Albumin Pfkcf-5-Zxvxtjbff Wygcz-0-Tpfxnkkjf PEP Interpretation Triglycerides LDL Cholesterol Direct HDL Cholesterol Free T4 PTH Intact Urine WBC (Auto) Urine Creatinine Salicylates Acetaminophen Crossmatch 03/20/19 03/20/19 03/20/19 09:30 09:30 11:34 WBC RBC Hgb Hct MCV MCHC RDW Plt Count Lymph % (Auto) [place] % (Auto) Lymph # [place] # Eos # Seg Neutrophils % Seg Neuts % (Manual) Lymphocytes % (Manual) Monocytes % (Manual) Nucleated RBC % Seg Neutrophils # Seg Neutrophils # Man Lymphocytes # (Manual) Monocytes # (Manual) PT INR D-Dimer Heparin Anti-Xa Level POC ABG pH ABG pH POC ABG pCO2 POC ABG pO2 ABG pO2 ABG HCO3 ABG O2 Saturation ABG Base Excess ABG Hemoglobin Oxyhemoglobin Sodium 131 L Potassium Chloride 92.3 L Carbon Dioxide 20 L BUN 68 H Creatinine 6.1 H Glucose 164 H POC Glucose 141 H Lactic Acid Calcium 5.3 L* Ionized Calcium Phosphorus Magnesium Iron TIBC Ferritin Total Bilirubin 9.50 H Direct Bilirubin AST 381 H ALT 116 H Alkaline Phosphatase 255 H Total Creatine Kinase 19727 H CK-MB (CK-2) Troponin T C-Reactive Protein Serum Total Protein Total Protein 5.1 L Albumin 2.3 L [place]-3-Quwldccct Kmmzs-7-Wmtcyenqf PEP Interpretation Triglycerides LDL Cholesterol Direct HDL Cholesterol Free T4 PTH Intact Urine WBC (Auto) Urine Creatinine Salicylates Acetaminophen Crossmatch 03/20/19 03/20/19 03/20/19 14:41 14:45 18:50 WBC RBC Hgb Hct MCV MCHC RDW Plt Count Lymph % (Auto) [place] % (Auto) Lymph # [place] # Eos # Seg Neutrophils % Seg Neuts % (Manual) Lymphocytes % (Manual) Monocytes % (Manual) Nucleated RBC % Seg Neutrophils # Seg Neutrophils # Man Lymphocytes # (Manual) Monocytes # (Manual) PT INR D-Dimer Heparin Anti-Xa Level POC ABG pH ABG pH POC ABG pCO2 POC ABG pO2 ABG pO2 ABG HCO3 ABG O2 Saturation ABG Base Excess ABG Hemoglobin Oxyhemoglobin Sodium Potassium Chloride Carbon Dioxide BUN Creatinine Glucose POC Glucose 117 H Lactic Acid 2.90 H* Calcium Ionized Calcium Phosphorus Magnesium Iron TIBC Ferritin Total Bilirubin Direct Bilirubin AST ALT Alkaline Phosphatase Total Creatine Kinase CK-MB (CK-2) Troponin T C-Reactive Protein 13.30 H Serum Total Protein Total Protein Albumin Vqdxg-6-Liwyrucuu Qpeox-2-Qyrbhmzjm PEP Interpretation Triglycerides LDL Cholesterol Direct HDL Cholesterol Free T4 PTH Intact Urine WBC (Auto) Urine Creatinine Salicylates Acetaminophen Crossmatch 03/20/19 03/21/19 03/21/19 21:55 04:26 04:26 WBC 37.8 H RBC Hgb Hct MCV MCHC RDW 15.4 H Plt Count 36 L Lymph % (Auto) [place] % (Auto) Lymph # [place] # Eos # Seg Neutrophils % Seg Neuts % (Manual) 93.0 H Lymphocytes % (Manual) 3.0 L Monocytes % (Manual) Nucleated RBC % 1.0 H Seg Neutrophils # 34.6 H Seg Neutrophils # Man 35.2 H Lymphocytes # (Manual) 1.1 L Monocytes # (Manual) PT INR D-Dimer Heparin Anti-Xa Level POC ABG pH ABG pH POC ABG pCO2 POC ABG pO2 ABG pO2 ABG HCO3 ABG O2 Saturation ABG Base Excess ABG Hemoglobin Oxyhemoglobin Sodium 131 L Potassium Chloride 90.7 L Carbon Dioxide 21 L BUN 69 H Creatinine 5.7 H Glucose 170 H POC Glucose 128 H Lactic Acid Calcium 6.1 L D Ionized Calcium Phosphorus Magnesium Iron TIBC Ferritin Total Bilirubin 9.50 H Direct Bilirubin AST 308 H ALT 124 H Alkaline Phosphatase 327 H Total Creatine Kinase 73987 H CK-MB (CK-2) Troponin T C-Reactive Protein Serum Total Protein Total Protein 5.7 L Albumin 2.6 L Ltsly-7-Wvpfymsss Jjxxb-5-Irwuwjelo PEP Interpretation Triglycerides LDL Cholesterol Direct HDL Cholesterol Free T4 PTH Intact Urine WBC (Auto) Urine Creatinine Salicylates Acetaminophen Crossmatch 03/21/19 03/21/19 03/21/19 05:17 05:39 08:29 WBC RBC Hgb Hct MCV MCHC RDW Plt Count Lymph % (Auto) [place] % (Auto) Lymph # [place] # Eos # Seg Neutrophils % Seg Neuts % (Manual) Lymphocytes % (Manual) Monocytes % (Manual) Nucleated RBC % Seg Neutrophils # Seg Neutrophils # Man Lymphocytes # (Manual) Monocytes # (Manual) PT INR D-Dimer Heparin Anti-Xa Level POC ABG pH ABG pH POC ABG pCO2 POC ABG pO2 209 H ABG pO2 ABG HCO3 ABG O2 Saturation ABG Base Excess ABG Hemoglobin Oxyhemoglobin Sodium Potassium Chloride Carbon Dioxide BUN Creatinine Glucose POC Glucose 145 H Lactic Acid Calcium Ionized Calcium Phosphorus Magnesium Iron TIBC Ferritin Total Bilirubin Direct Bilirubin AST ALT Alkaline Phosphatase Total Creatine Kinase 33798 H CK-MB (CK-2) Troponin T C-Reactive Protein Serum Total Protein Total Protein Albumin Xjess-2-Zmhdxthpg Dueuc-6-Hrwfrjhek PEP Interpretation Triglycerides LDL Cholesterol Direct HDL Cholesterol Free T4 PTH Intact Urine WBC (Auto) Urine Creatinine Salicylates Acetaminophen Crossmatch 03/21/19 03/21/19 03/21/19 08:29 11:43 12:00 WBC RBC Hgb Hct MCV MCHC RDW Plt Count Lymph % (Auto) [place] % (Auto) Lymph # [place] # Eos # Seg Neutrophils % Seg Neuts % (Manual) Lymphocytes % (Manual) Monocytes % (Manual) Nucleated RBC % Seg Neutrophils # Seg Neutrophils # Man Lymphocytes # (Manual) Monocytes # (Manual) PT INR D-Dimer Heparin Anti-Xa Level POC ABG pH ABG pH POC ABG pCO2 POC ABG pO2 ABG pO2 ABG HCO3 ABG O2 Saturation ABG Base Excess ABG Hemoglobin Oxyhemoglobin Sodium Potassium Chloride Carbon Dioxide BUN Creatinine Glucose POC Glucose 123 H Lactic Acid 2.60 H* 2.20 H* Calcium Ionized Calcium Phosphorus Magnesium Iron TIBC Ferritin Total Bilirubin Direct Bilirubin AST ALT Alkaline Phosphatase Total Creatine Kinase CK-MB (CK-2) Troponin T C-Reactive Protein Serum Total Protein Total Protein Albumin Lqyhy-4-Dchmrhxpj Iccly-2-Dyfpbmjlo PEP Interpretation Triglycerides LDL Cholesterol Direct HDL Cholesterol Free T4 PTH Intact Urine WBC (Auto) Urine Creatinine Salicylates Acetaminophen Crossmatch 03/21/19 03/21/19 03/21/19 14:11 18:28 19:32 WBC RBC Hgb Hct MCV MCHC RDW Plt Count Lymph % (Auto) [place] % (Auto) Lymph # [place] # Eos # Seg Neutrophils % Seg Neuts % (Manual) Lymphocytes % (Manual) Monocytes % (Manual) Nucleated RBC % Seg Neutrophils # Seg Neutrophils # Man Lymphocytes # (Manual) Monocytes # (Manual) PT INR D-Dimer Heparin Anti-Xa Level POC ABG pH 7.293 L ABG pH POC ABG pCO2 POC ABG pO2 ABG pO2 ABG HCO3 ABG O2 Saturation ABG Base Excess ABG Hemoglobin Oxyhemoglobin Sodium Potassium Chloride Carbon Dioxide BUN Creatinine Glucose POC Glucose 153 H Lactic Acid 2.10 H* Calcium Ionized Calcium Phosphorus Magnesium Iron TIBC Ferritin Total Bilirubin Direct Bilirubin AST ALT Alkaline Phosphatase Total Creatine Kinase CK-MB (CK-2) Troponin T C-Reactive Protein Serum Total Protein Total Protein Albumin Irqcs-7-Lpyigocxn Tajeb-2-Woczauhsp PEP Interpretation Triglycerides LDL Cholesterol Direct HDL Cholesterol Free T4 PTH Intact Urine WBC (Auto) Urine Creatinine Salicylates Acetaminophen Crossmatch 03/21/19 03/22/19 03/22/19 23:38 05:08 05:51 WBC RBC Hgb Hct MCV MCHC RDW Plt Count Lymph % (Auto) [place] % (Auto) Lymph # [place] # Eos # Seg Neutrophils % Seg Neuts % (Manual) Lymphocytes % (Manual) Monocytes % (Manual) Nucleated RBC % Seg Neutrophils # Seg Neutrophils # Man Lymphocytes # (Manual) Monocytes # (Manual) PT INR D-Dimer Heparin Anti-Xa Level POC ABG pH 7.283 L ABG pH POC ABG pCO2 POC ABG pO2 53 L ABG pO2 ABG HCO3 ABG O2 Saturation ABG Base Excess ABG Hemoglobin Oxyhemoglobin Sodium Potassium Chloride Carbon Dioxide BUN Creatinine Glucose POC Glucose 149 H 131 H Lactic Acid Calcium Ionized Calcium Phosphorus Magnesium Iron TIBC Ferritin Total Bilirubin Direct Bilirubin AST ALT Alkaline Phosphatase Total Creatine Kinase CK-MB (CK-2) Troponin T C-Reactive Protein Serum Total Protein Total Protein Albumin Cemke-0-Mimijabxm Pafxr-1-Ofswtghjb PEP Interpretation Triglycerides LDL Cholesterol Direct HDL Cholesterol Free T4 PTH Intact Urine WBC (Auto) Urine Creatinine Salicylates Acetaminophen Crossmatch 03/22/19 03/22/19 03/22/19 08:00 08:00 18:19 WBC 36.7 H RBC Hgb 11.0 L Hct 33.5 L MCV MCHC RDW 15.5 H Plt Count 43 L Lymph % (Auto) [place] % (Auto) Lymph # [place] # Eos # Seg Neutrophils % Seg Neuts % (Manual) 87.0 H Lymphocytes % (Manual) 7.0 L Monocytes % (Manual) Nucleated RBC % Seg Neutrophils # Seg Neutrophils # Man 31.9 H Lymphocytes # (Manual) Monocytes # (Manual) PT INR D-Dimer Heparin Anti-Xa Level POC ABG pH ABG pH POC ABG pCO2 46.4 H POC ABG pO2 108 H ABG pO2 ABG HCO3 ABG O2 Saturation ABG Base Excess ABG Hemoglobin Oxyhemoglobin Sodium 132 L Potassium 5.6 H Chloride 89.6 L Carbon Dioxide 20 L BUN 101 H Creatinine 7.4 H Glucose 124 H POC Glucose Lactic Acid Calcium 5.2 L* Ionized Calcium Phosphorus Magnesium Iron TIBC Ferritin Total Bilirubin 2.80 H Direct Bilirubin AST 119 H ALT 86 H Alkaline Phosphatase 245 H Total Creatine Kinase CK-MB (CK-2) Troponin T C-Reactive Protein Serum Total Protein Total Protein 5.6 L Albumin 2.5 L Nifqw-6-Krnpbsras Jnlmb-3-Efexmjywz PEP Interpretation Triglycerides LDL Cholesterol Direct HDL Cholesterol Free T4 PTH Intact Urine WBC (Auto) Urine Creatinine Salicylates Acetaminophen Crossmatch 03/22/19 03/23/19 03/23/19 20:37 04:49 05:28 WBC 35.9 H RBC Hgb 10.8 L Hct 33.2 L MCV MCHC RDW 15.5 H Plt Count 49 L Lymph % (Auto) [place] % (Auto) Lymph # [place] # Eos # Seg Neutrophils % Seg Neuts % (Manual) 81.0 H Lymphocytes % (Manual) 3.5 L Monocytes % (Manual) Nucleated RBC % Seg Neutrophils # Seg Neutrophils # Man 29.1 H Lymphocytes # (Manual) Monocytes # (Manual) 1.4 H PT INR D-Dimer Heparin Anti-Xa Level POC ABG pH 7.296 L ABG pH POC ABG pCO2 46.2 H POC ABG pO2 ABG pO2 ABG HCO3 ABG O2 Saturation ABG Base Excess ABG Hemoglobin Oxyhemoglobin Sodium 129 L Potassium 5.2 H Chloride 91.1 L Carbon Dioxide BUN 91 H Creatinine 6.6 H Glucose 190 H POC Glucose Lactic Acid Calcium 5.3 L* Ionized Calcium Phosphorus Magnesium Iron TIBC Ferritin Total Bilirubin 1.80 H Direct Bilirubin AST 80 H ALT 62 H Alkaline Phosphatase 209 H Total Creatine Kinase 9758 H CK-MB (CK-2) Troponin T C-Reactive Protein Serum Total Protein Total Protein 5.2 L Albumin 2.2 L Fvtps-7-Qgepzpgvf Pfdsq-9-Avludpjwn PEP Interpretation Triglycerides LDL Cholesterol Direct HDL Cholesterol Free T4 PTH Intact Urine WBC (Auto) Urine Creatinine Salicylates Acetaminophen Crossmatch 03/23/19 03/23/19 03/23/19 05:28 05:31 11:33 WBC 29.7 H RBC 3.59 L Hgb 10.1 L Hct 31.1 L MCV MCHC RDW 15.4 H Plt Count 47 L Lymph % (Auto) [place] % (Auto) Lymph # [place] # Eos # Seg Neutrophils % Seg Neuts % (Manual) 89.0 H Lymphocytes % (Manual) 6.0 L Monocytes % (Manual) Nucleated RBC % 1.0 H Seg Neutrophils # Seg Neutrophils # Man 26.4 H Lymphocytes # (Manual) Monocytes # (Manual) PT INR D-Dimer Heparin Anti-Xa Level POC ABG pH ABG pH POC ABG pCO2 POC ABG pO2 ABG pO2 ABG HCO3 ABG O2 Saturation ABG Base Excess ABG Hemoglobin Oxyhemoglobin Sodium Potassium Chloride Carbon Dioxide BUN Creatinine Glucose POC Glucose 122 H 113 H Lactic Acid Calcium Ionized Calcium Phosphorus Magnesium Iron TIBC Ferritin Total Bilirubin Direct Bilirubin AST ALT Alkaline Phosphatase Total Creatine Kinase CK-MB (CK-2) Troponin T C-Reactive Protein Serum Total Protein Total Protein Albumin Hfsvv-8-Njrjekvml Ctcyd-7-Bpuuqxrat PEP Interpretation Triglycerides LDL Cholesterol Direct HDL Cholesterol Free T4 PTH Intact Urine WBC (Auto) Urine Creatinine Salicylates Acetaminophen Crossmatch 03/23/19 03/24/19 03/24/19 17:47 00:00 04:50 WBC 35.0 H RBC Hgb 10.4 L Hct 32.4 L MCV MCHC RDW Plt Count 60 L Lymph % (Auto) [place] % (Auto) Lymph # [place] # Eos # Seg Neutrophils % Seg Neuts % (Manual) 93.0 H Lymphocytes % (Manual) 5.0 L Monocytes % (Manual) Nucleated RBC % 7.0 H Seg Neutrophils # Seg Neutrophils # Man 32.6 H Lymphocytes # (Manual) Monocytes # (Manual) PT INR D-Dimer Heparin Anti-Xa Level POC ABG pH ABG pH POC ABG pCO2 POC ABG pO2 ABG pO2 ABG HCO3 ABG O2 Saturation ABG Base Excess ABG Hemoglobin Oxyhemoglobin Sodium Potassium Chloride Carbon Dioxide BUN Creatinine Glucose POC Glucose 111 H 108 H Lactic Acid Calcium Ionized Calcium Phosphorus Magnesium Iron TIBC Ferritin Total Bilirubin Direct Bilirubin AST ALT Alkaline Phosphatase Total Creatine Kinase CK-MB (CK-2) Troponin T C-Reactive Protein Serum Total Protein Total Protein Albumin Qjjdk-6-Awyguektp Roreh-2-Vcdtowcbr PEP Interpretation Triglycerides LDL Cholesterol Direct HDL Cholesterol Free T4 PTH Intact Urine WBC (Auto) Urine Creatinine Salicylates Acetaminophen Crossmatch 03/24/19 03/24/19 03/24/19 04:50 05:06 12:55 WBC RBC Hgb Hct MCV MCHC RDW Plt Count Lymph % (Auto) [place] % (Auto) Lymph # [place] # Eos # Seg Neutrophils % Seg Neuts % (Manual) Lymphocytes % (Manual) Monocytes % (Manual) Nucleated RBC % Seg Neutrophils # Seg Neutrophils # Man Lymphocytes # (Manual) Monocytes # (Manual) PT INR D-Dimer Heparin Anti-Xa Level POC ABG pH ABG pH POC ABG pCO2 POC ABG pO2 ABG pO2 ABG HCO3 ABG O2 Saturation ABG Base Excess ABG Hemoglobin Oxyhemoglobin Sodium 134 L Potassium 5.1 H Chloride 95.3 L Carbon Dioxide 21 L BUN 85 H Creatinine 6.4 H Glucose 109 H POC Glucose 112 H 110 H Lactic Acid Calcium 5.8 L* Ionized Calcium Phosphorus Magnesium Iron TIBC Ferritin Total Bilirubin Direct Bilirubin AST ALT Alkaline Phosphatase Total Creatine Kinase 5747 H CK-MB (CK-2) Troponin T C-Reactive Protein Serum Total Protein Total Protein Albumin Zbfkh-5-Nnoupkplk Uzwfi-4-Nhtphrgeo PEP Interpretation Triglycerides LDL Cholesterol Direct HDL Cholesterol Free T4 PTH Intact Urine WBC (Auto) Urine Creatinine Salicylates Acetaminophen Crossmatch 03/24/19 03/25/19 03/25/19 23:29 05:00 05:00 WBC RBC Hgb Hct MCV MCHC RDW Plt Count Lymph % (Auto) [place] % (Auto) Lymph # [place] # Eos # Seg Neutrophils % Seg Neuts % (Manual) Lymphocytes % (Manual) Monocytes % (Manual) Nucleated RBC % Seg Neutrophils # Seg Neutrophils # Man Lymphocytes # (Manual) Monocytes # (Manual) PT INR D-Dimer Heparin Anti-Xa Level POC ABG pH ABG pH POC ABG pCO2 POC ABG pO2 ABG pO2 ABG HCO3 ABG O2 Saturation ABG Base Excess ABG Hemoglobin Oxyhemoglobin Sodium 133 L Potassium Chloride 94.0 L Carbon Dioxide 21 L BUN 81 H Creatinine 6.4 H Glucose POC Glucose 109 H Lactic Acid Calcium 5.5 L* Ionized Calcium Phosphorus Magnesium Iron TIBC Ferritin Total Bilirubin Direct Bilirubin AST 80 H ALT Alkaline Phosphatase 202 H Total Creatine Kinase 3589 H CK-MB (CK-2) Troponin T C-Reactive Protein Serum Total Protein Total Protein 5.3 L Albumin 2.4 L Xvrcm-1-Pipxtsbmj Qamxy-3-Ylihgpfam PEP Interpretation Triglycerides LDL Cholesterol Direct HDL Cholesterol Free T4 PTH Intact 329.9 H Urine WBC (Auto) Urine Creatinine Salicylates Acetaminophen Crossmatch 03/25/19 03/25/19 03/26/19 05:00 06:30 04:30 WBC 23.3 H RBC 3.61 L Hgb 10.2 L Hct 31.2 L MCV MCHC RDW Plt Count 57 L Lymph % (Auto) [place] % (Auto) Lymph # [place] # Eos # Seg Neutrophils % Seg Neuts % (Manual) 92.0 H Lymphocytes % (Manual) 6.0 L Monocytes % (Manual) Nucleated RBC % Seg Neutrophils # Seg Neutrophils # Man 21.4 H Lymphocytes # (Manual) Monocytes # (Manual) PT INR D-Dimer Heparin Anti-Xa Level POC ABG pH ABG pH 7.326 L POC ABG pCO2 POC ABG pO2 ABG pO2 109.5 H 137.4 H ABG HCO3 18.8 L 18.6 L ABG O2 Saturation ABG Base Excess -4.4 L -6.8 L ABG Hemoglobin 10.1 L 9.9 L Oxyhemoglobin Sodium Potassium Chloride Carbon Dioxide BUN Creatinine Glucose POC Glucose Lactic Acid Calcium Ionized Calcium Phosphorus Magnesium Iron TIBC Ferritin Total Bilirubin Direct Bilirubin AST ALT Alkaline Phosphatase Total Creatine Kinase CK-MB (CK-2) Troponin T C-Reactive Protein Serum Total Protein Total Protein Albumin Neopf-2-Watafzttb Fuakc-0-Xlrhikeci PEP Interpretation Triglycerides LDL Cholesterol Direct HDL Cholesterol Free T4 PTH Intact Urine WBC (Auto) Urine Creatinine Salicylates Acetaminophen Crossmatch 03/26/19 03/26/19 03/26/19 23:22 Unknown Unknown WBC 19.5 H RBC 3.44 L Hgb 9.8 L Hct 29.9 L MCV MCHC RDW Plt Count 85 L Lymph % (Auto) [place] % (Auto) Lymph # [place] # Eos # Seg Neutrophils % Seg Neuts % (Manual) 95.0 H Lymphocytes % (Manual) 3.0 L Monocytes % (Manual) Nucleated RBC % Seg Neutrophils # Seg Neutrophils # Man 18.5 H Lymphocytes # (Manual) 0.6 L Monocytes # (Manual) PT INR D-Dimer Heparin Anti-Xa Level POC ABG pH ABG pH POC ABG pCO2 POC ABG pO2 ABG pO2 ABG HCO3 ABG O2 Saturation ABG Base Excess ABG Hemoglobin Oxyhemoglobin Sodium 135 L Potassium 5.2 H D Chloride 92.2 L Carbon Dioxide 18 L BUN 109 H Creatinine 8.5 H Glucose 117 H POC Glucose 69 L Lactic Acid Calcium 4.5 L* D Ionized Calcium Phosphorus Magnesium Iron TIBC Ferritin Total Bilirubin Direct Bilirubin AST ALT Alkaline Phosphatase Total Creatine Kinase 4527 H CK-MB (CK-2) Troponin T C-Reactive Protein Serum Total Protein Total Protein Albumin Llqab-0-Vwqiwesoj Cttgl-1-Bgpzipaxk PEP Interpretation Triglycerides LDL Cholesterol Direct HDL Cholesterol Free T4 PTH Intact Urine WBC (Auto) Urine Creatinine Salicylates Acetaminophen Crossmatch 03/27/19 03/27/19 03/27/19 04:30 04:30 09:00 WBC 19.2 H RBC 3.42 L Hgb 9.9 L Hct 30.0 L MCV MCHC RDW Plt Count 84 L Lymph % (Auto) [place] % (Auto) Lymph # [place] # Eos # Seg Neutrophils % Seg Neuts % (Manual) Lymphocytes % (Manual) Monocytes % (Manual) Nucleated RBC % Seg Neutrophils # Seg Neutrophils # Man Lymphocytes # (Manual) Monocytes # (Manual) PT INR D-Dimer Heparin Anti-Xa Level POC ABG pH ABG pH POC ABG pCO2 POC ABG pO2 ABG pO2 ABG HCO3 ABG O2 Saturation ABG Base Excess ABG Hemoglobin Oxyhemoglobin Sodium 135 L Potassium Chloride 93.5 L Carbon Dioxide BUN 84 H Creatinine 7.1 H Glucose POC Glucose Lactic Acid Calcium 5.0 L* Ionized Calcium Phosphorus Magnesium Iron TIBC Ferritin Total Bilirubin Direct Bilirubin AST 78 H ALT Alkaline Phosphatase 135 H Total Creatine Kinase 4677 H CK-MB (CK-2) Troponin T C-Reactive Protein Serum Total Protein Total Protein 4.8 L Albumin 2.3 L Xjamj-7-Zmriaagpv [place]-7-Wcpkixuso PEP Interpretation Triglycerides 409 H LDL Cholesterol Direct HDL Cholesterol Free T4 PTH Intact Urine WBC (Auto) Urine Creatinine Salicylates Acetaminophen Crossmatch 03/27/19 03/27/19 03/27/19 12:37 14:15 14:15 WBC RBC Hgb 9.7 L Hct 29.5 L MCV MCHC RDW Plt Count 87 L Lymph % (Auto) [place] % (Auto) Lymph # [place] # Eos # Seg Neutrophils % Seg Neuts % (Manual) Lymphocytes % (Manual) Monocytes % (Manual) Nucleated RBC % Seg Neutrophils # Seg Neutrophils # Man Lymphocytes # (Manual) Monocytes # (Manual) PT 15.9 H INR 1.30 H D-Dimer Heparin Anti-Xa Level POC ABG pH ABG pH POC ABG pCO2 POC ABG pO2 ABG pO2 ABG HCO3 ABG O2 Saturation ABG Base Excess ABG Hemoglobin Oxyhemoglobin Sodium Potassium Chloride Carbon Dioxide BUN Creatinine Glucose POC Glucose 129 H Lactic Acid Calcium Ionized Calcium Phosphorus Magnesium Iron TIBC Ferritin Total Bilirubin Direct Bilirubin AST ALT Alkaline Phosphatase Total Creatine Kinase CK-MB (CK-2) Troponin T C-Reactive Protein Serum Total Protein Total Protein Albumin Vbfin-1-Kgsficjrx Mnqlc-3-Ilrwqpebb PEP Interpretation Triglycerides LDL Cholesterol Direct HDL Cholesterol Free T4 PTH Intact Urine WBC (Auto) Urine Creatinine Salicylates Acetaminophen Crossmatch 03/27/19 03/27/19 03/27/19 18:00 19:22 19:23 WBC RBC Hgb Hct MCV MCHC RDW Plt Count Lymph % (Auto) [place] % (Auto) Lymph # [place] # Eos # Seg Neutrophils % Seg Neuts % (Manual) Lymphocytes % (Manual) Monocytes % (Manual) Nucleated RBC % Seg Neutrophils # Seg Neutrophils # Man Lymphocytes # (Manual) Monocytes # (Manual) PT INR D-Dimer Heparin Anti-Xa Level < 0.10 L POC ABG pH ABG pH POC ABG pCO2 POC ABG pO2 ABG pO2 ABG HCO3 ABG O2 Saturation ABG Base Excess ABG Hemoglobin Oxyhemoglobin Sodium Potassium Chloride Carbon Dioxide BUN Creatinine Glucose POC Glucose 121 H Lactic Acid Calcium Ionized Calcium Phosphorus Magnesium Iron TIBC Ferritin Total Bilirubin Direct Bilirubin AST ALT Alkaline Phosphatase Total Creatine Kinase 4517 H CK-MB (CK-2) Troponin T C-Reactive Protein Serum Total Protein Total Protein Albumin Gfgij-2-Qtikwoctj Aqodx-1-Kgrbrfnsm PEP Interpretation Triglycerides LDL Cholesterol Direct HDL Cholesterol Free T4 PTH Intact Urine WBC (Auto) Urine Creatinine Salicylates Acetaminophen Crossmatch 03/27/19 03/27/19 03/28/19 22:10 23:52 03:49 WBC RBC Hgb Hct MCV MCHC RDW Plt Count Lymph % (Auto) [place] % (Auto) Lymph # [place] # Eos # Seg Neutrophils % Seg Neuts % (Manual) Lymphocytes % (Manual) Monocytes % (Manual) Nucleated RBC % Seg Neutrophils # Seg Neutrophils # Man Lymphocytes # (Manual) Monocytes # (Manual) PT INR D-Dimer Heparin Anti-Xa Level POC ABG pH 7.338 L ABG pH POC ABG pCO2 33.1 L POC ABG pO2 ABG pO2 ABG HCO3 ABG O2 Saturation ABG Base Excess ABG Hemoglobin Oxyhemoglobin Sodium Potassium Chloride Carbon Dioxide BUN Creatinine Glucose POC Glucose 113 H 117 H Lactic Acid Calcium Ionized Calcium Phosphorus Magnesium Iron TIBC Ferritin Total Bilirubin Direct Bilirubin AST ALT Alkaline Phosphatase Total Creatine Kinase CK-MB (CK-2) Troponin T C-Reactive Protein Serum Total Protein Total Protein Albumin Etlhr-6-Cviezhwin Ugbhs-3-Inwypnmqx PEP Interpretation Triglycerides LDL Cholesterol Direct HDL Cholesterol Free T4 PTH Intact Urine WBC (Auto) Urine Creatinine Salicylates Acetaminophen Crossmatch 03/28/19 03/28/19 03/28/19 05:13 05:13 06:18 WBC RBC Hgb Hct MCV MCHC RDW Plt Count Lymph % (Auto) [place] % (Auto) Lymph # [place] # Eos # Seg Neutrophils % Seg Neuts % (Manual) Lymphocytes % (Manual) Monocytes % (Manual) Nucleated RBC % Seg Neutrophils # Seg Neutrophils # Man Lymphocytes # (Manual) Monocytes # (Manual) PT INR D-Dimer Heparin Anti-Xa Level 0.23 L POC ABG pH ABG pH POC ABG pCO2 POC ABG pO2 ABG pO2 ABG HCO3 ABG O2 Saturation ABG Base Excess ABG Hemoglobin Oxyhemoglobin Sodium 135 L Potassium 5.5 H D Chloride 95.1 L Carbon Dioxide 16 L D BUN 129 H Creatinine 9.3 H Glucose 158 H POC Glucose 202 H Lactic Acid Calcium 4.0 L* D Ionized Calcium Phosphorus 12.40 H Magnesium Iron TIBC Ferritin Total Bilirubin Direct Bilirubin AST ALT Alkaline Phosphatase Total Creatine Kinase 4266 H CK-MB (CK-2) Troponin T C-Reactive Protein Serum Total Protein Total Protein Albumin Fkhvg-7-Dgenzfxnb Jfils-3-Ptzmmepmv PEP Interpretation Triglycerides LDL Cholesterol Direct HDL Cholesterol Free T4 PTH Intact Urine WBC (Auto) Urine Creatinine Salicylates Acetaminophen Crossmatch 03/28/19 03/28/19 03/28/19 08:25 10:00 12:00 WBC RBC Hgb 4.9 L* D Hct 15.4 L* D MCV MCHC RDW Plt Count Lymph % (Auto) [place] % (Auto) Lymph # [place] # Eos # Seg Neutrophils % Seg Neuts % (Manual) Lymphocytes % (Manual) Monocytes % (Manual) Nucleated RBC % Seg Neutrophils # Seg Neutrophils # Man Lymphocytes # (Manual) Monocytes # (Manual) PT 17.9 H INR 1.52 H D-Dimer 4845.98 H Heparin Anti-Xa Level POC ABG pH ABG pH POC ABG pCO2 POC ABG pO2 ABG pO2 ABG HCO3 ABG O2 Saturation ABG Base Excess ABG Hemoglobin Oxyhemoglobin Sodium Potassium Chloride Carbon Dioxide BUN Creatinine Glucose POC Glucose Lactic Acid Calcium Ionized Calcium Phosphorus Magnesium Iron TIBC Ferritin Total Bilirubin Direct Bilirubin AST ALT Alkaline Phosphatase Total Creatine Kinase CK-MB (CK-2) Troponin T C-Reactive Protein Serum Total Protein Total Protein Albumin Mkcxf-1-Wtikjtgpg Sgjof-0-Cisnzemed PEP Interpretation Triglycerides LDL Cholesterol Direct HDL Cholesterol Free T4 PTH Intact Urine WBC (Auto) Urine Creatinine Salicylates Acetaminophen Crossmatch See Detail 03/28/19 03/28/19 03/28/19 12:28 14:10 17:43 WBC RBC Hgb 5.9 L* Hct 18.3 L* MCV MCHC RDW Plt Count Lymph % (Auto) [place] % (Auto) Lymph # [place] # Eos # Seg Neutrophils % Seg Neuts % (Manual) Lymphocytes % (Manual) Monocytes % (Manual) Nucleated RBC % Seg Neutrophils # Seg Neutrophils # Man Lymphocytes # (Manual) Monocytes # (Manual) PT INR D-Dimer Heparin Anti-Xa Level POC ABG pH ABG pH POC ABG pCO2 POC ABG pO2 ABG pO2 ABG HCO3 ABG O2 Saturation ABG Base Excess ABG Hemoglobin Oxyhemoglobin Sodium Potassium Chloride Carbon Dioxide BUN Creatinine Glucose POC Glucose 153 H 159 H Lactic Acid Calcium Ionized Calcium Phosphorus Magnesium Iron TIBC Ferritin Total Bilirubin Direct Bilirubin AST ALT Alkaline Phosphatase Total Creatine Kinase CK-MB (CK-2) Troponin T C-Reactive Protein Serum Total Protein Total Protein Albumin Uhykq-4-Wtskwcsoy Wmswz-8-Fcmcqqxbo PEP Interpretation Triglycerides LDL Cholesterol Direct HDL Cholesterol Free T4 PTH Intact Urine WBC (Auto) Urine Creatinine Salicylates Acetaminophen Crossmatch 03/28/19 03/28/19 03/28/19 18:10 Unknown 23:59 WBC 24.8 H RBC 3.42 L Hgb 10.2 L D Hct 31.1 L D MCV MCHC RDW 15.4 H Plt Count 54 L Lymph % (Auto) [place] % (Auto) Lymph # [place] # Eos # Seg Neutrophils % Seg Neuts % (Manual) 91.0 H Lymphocytes % (Manual) 8.0 L Monocytes % (Manual) Nucleated RBC % Seg Neutrophils # Seg Neutrophils # Man 22.6 H Lymphocytes # (Manual) Monocytes # (Manual) PT INR D-Dimer Heparin Anti-Xa Level POC ABG pH ABG pH POC ABG pCO2 POC ABG pO2 ABG pO2 ABG HCO3 ABG O2 Saturation ABG Base Excess ABG Hemoglobin Oxyhemoglobin Sodium Potassium 5.7 H Chloride Carbon Dioxide BUN Creatinine Glucose POC Glucose 107 H Lactic Acid Calcium Ionized Calcium Phosphorus Magnesium Iron TIBC Ferritin Total Bilirubin Direct Bilirubin AST ALT Alkaline Phosphatase Total Creatine Kinase CK-MB (CK-2) Troponin T C-Reactive Protein Serum Total Protein Total Protein Albumin Giard-7-Ewlurxfjk Lkckc-0-Ceeqyyjeb PEP Interpretation Triglycerides LDL Cholesterol Direct HDL Cholesterol Free T4 PTH Intact Urine WBC (Auto) Urine Creatinine Salicylates Acetaminophen Crossmatch 03/29/19 03/29/19 03/29/19 04:29 05:46 06:22 WBC RBC Hgb 8.6 L Hct 25.7 L MCV MCHC RDW Plt Count 93 L Lymph % (Auto) [place] % (Auto) Lymph # [place] # Eos # Seg Neutrophils % Seg Neuts % (Manual) Lymphocytes % (Manual) Monocytes % (Manual) Nucleated RBC % Seg Neutrophils # Seg Neutrophils # Man Lymphocytes # (Manual) Monocytes # (Manual) PT INR D-Dimer Heparin Anti-Xa Level POC ABG pH ABG pH POC ABG pCO2 32.2 L POC ABG pO2 ABG pO2 ABG HCO3 ABG O2 Saturation ABG Base Excess ABG Hemoglobin Oxyhemoglobin Sodium Potassium Chloride Carbon Dioxide BUN Creatinine Glucose POC Glucose 113 H Lactic Acid Calcium Ionized Calcium Phosphorus Magnesium Iron TIBC Ferritin Total Bilirubin Direct Bilirubin AST ALT Alkaline Phosphatase Total Creatine Kinase CK-MB (CK-2) Troponin T C-Reactive Protein Serum Total Protein Total Protein Albumin Nwsgy-9-Nhuftzhmq Owfzt-2-Cefwuipbu PEP Interpretation Triglycerides LDL Cholesterol Direct HDL Cholesterol Free T4 PTH Intact Urine WBC (Auto) Urine Creatinine Salicylates Acetaminophen Crossmatch 03/29/19 03/29/19 03/29/19 06:22 06:22 06:22 WBC 23.2 H RBC 2.91 L Hgb 8.6 L Hct 25.8 L MCV MCHC RDW Plt Count 91 L Lymph % (Auto) [place] % (Auto) Lymph # [place] # Eos # Seg Neutrophils % Seg Neuts % (Manual) Lymphocytes % (Manual) Monocytes % (Manual) Nucleated RBC % Seg Neutrophils # Seg Neutrophils # Man Lymphocytes # (Manual) Monocytes # (Manual) PT INR D-Dimer Heparin Anti-Xa Level POC ABG pH ABG pH POC ABG pCO2 POC ABG pO2 ABG pO2 ABG HCO3 ABG O2 Saturation ABG Base Excess ABG Hemoglobin Oxyhemoglobin Sodium 133 L Potassium Chloride 93.8 L Carbon Dioxide 18 L BUN 109 H Creatinine 7.4 H Glucose 124 H POC Glucose Lactic Acid Calcium 4.6 L* Ionized Calcium Phosphorus Magnesium Iron TIBC Ferritin Total Bilirubin Direct Bilirubin AST ALT Alkaline Phosphatase Total Creatine Kinase 3401 H CK-MB (CK-2) Troponin T C-Reactive Protein Serum Total Protein Total Protein Albumin Nkuui-2-Orcyyaqom Ophzp-6-Lxnveqifc PEP Interpretation Triglycerides 309 H LDL Cholesterol Direct HDL Cholesterol Free T4 PTH Intact Urine WBC (Auto) Urine Creatinine Salicylates Acetaminophen Crossmatch 03/29/19 03/29/19 03/29/19 11:48 11:48 18:24 WBC RBC Hgb 7.8 L Hct 23.2 L MCV MCHC RDW Plt Count Lymph % (Auto) [place] % (Auto) Lymph # [place] # Eos # Seg Neutrophils % Seg Neuts % (Manual) Lymphocytes % (Manual) Monocytes % (Manual) Nucleated RBC % Seg Neutrophils # Seg Neutrophils # Man Lymphocytes # (Manual) Monocytes # (Manual) PT 15.3 H INR 1.24 H D-Dimer Heparin Anti-Xa Level POC ABG pH ABG pH POC ABG pCO2 POC ABG pO2 ABG pO2 ABG HCO3 ABG O2 Saturation ABG Base Excess ABG Hemoglobin Oxyhemoglobin Sodium Potassium Chloride Carbon Dioxide BUN Creatinine Glucose POC Glucose 122 H Lactic Acid Calcium Ionized Calcium Phosphorus Magnesium Iron TIBC Ferritin Total Bilirubin Direct Bilirubin AST ALT Alkaline Phosphatase Total Creatine Kinase CK-MB (CK-2) Troponin T C-Reactive Protein Serum Total Protein Total Protein Albumin Qbxip-0-Axzdjttil Uelqq-7-Kmndcfbpr PEP Interpretation Triglycerides LDL Cholesterol Direct HDL Cholesterol Free T4 PTH Intact Urine WBC (Auto) Urine Creatinine Salicylates Acetaminophen Crossmatch 03/30/19 03/30/19 03/30/19 00:40 04:31 05:04 WBC RBC Hgb 7.6 L Hct 23.0 L MCV MCHC RDW Plt Count Lymph % (Auto) [place] % (Auto) Lymph # [place] # Eos # Seg Neutrophils % Seg Neuts % (Manual) Lymphocytes % (Manual) Monocytes % (Manual) Nucleated RBC % Seg Neutrophils # Seg Neutrophils # Man Lymphocytes # (Manual) Monocytes # (Manual) PT INR D-Dimer Heparin Anti-Xa Level POC ABG pH 7.346 L ABG pH POC ABG pCO2 POC ABG pO2 62 L ABG pO2 ABG HCO3 ABG O2 Saturation ABG Base Excess ABG Hemoglobin Oxyhemoglobin Sodium Potassium Chloride Carbon Dioxide BUN 79 H Creatinine 6.4 H Glucose POC Glucose Lactic Acid Calcium 6.1 L D Ionized Calcium Phosphorus Magnesium Iron TIBC Ferritin Total Bilirubin Direct Bilirubin AST ALT Alkaline Phosphatase Total Creatine Kinase CK-MB (CK-2) Troponin T C-Reactive Protein Serum Total Protein Total Protein Albumin Wqsou-6-Bhxygdayg Statt-4-Ewxjauoph PEP Interpretation Triglycerides LDL Cholesterol Direct HDL Cholesterol Free T4 PTH Intact Urine WBC (Auto) Urine Creatinine Salicylates Acetaminophen Crossmatch 03/30/19 03/30/19 03/30/19 08:45 12:09 22:43 WBC 14.3 H RBC 2.33 L Hgb 7.0 L 7.4 L Hct 21.0 L 22.3 L MCV MCHC RDW 15.6 H Plt Count 135 L Lymph % (Auto) [place] % (Auto) Lymph # [place] # Eos # Seg Neutrophils % Seg Neuts % (Manual) Lymphocytes % (Manual) Monocytes % (Manual) Nucleated RBC % Seg Neutrophils # Seg Neutrophils # Man Lymphocytes # (Manual) Monocytes # (Manual) PT INR D-Dimer Heparin Anti-Xa Level POC ABG pH ABG pH POC ABG pCO2 POC ABG pO2 ABG pO2 ABG HCO3 ABG O2 Saturation ABG Base Excess ABG Hemoglobin Oxyhemoglobin Sodium Potassium Chloride Carbon Dioxide BUN Creatinine Glucose POC Glucose Lactic Acid Calcium Ionized Calcium 3.7 L Phosphorus Magnesium Iron TIBC Ferritin Total Bilirubin Direct Bilirubin AST ALT Alkaline Phosphatase Total Creatine Kinase CK-MB (CK-2) Troponin T C-Reactive Protein Serum Total Protein Total Protein Albumin Xqqku-7-Kgmojuhps Adjuk-1-Wyjuamlzw PEP Interpretation Triglycerides LDL Cholesterol Direct HDL Cholesterol Free T4 PTH Intact Urine WBC (Auto) Urine Creatinine Salicylates Acetaminophen Crossmatch 03/30/19 03/30/19 03/31/19 23:38 Unknown 04:44 WBC 11.5 H RBC 2.40 L Hgb 7.3 L Hct 21.9 L MCV MCHC RDW 15.4 H Plt Count Lymph % (Auto) 10.6 L [place] % (Auto) Lymph # [place] # Eos # Seg Neutrophils % 81.7 H Seg Neuts % (Manual) Lymphocytes % (Manual) Monocytes % (Manual) Nucleated RBC % Seg Neutrophils # 9.4 H Seg Neutrophils # Man Lymphocytes # (Manual) Monocytes # (Manual) PT INR D-Dimer Heparin Anti-Xa Level POC ABG pH ABG pH POC ABG pCO2 POC ABG pO2 ABG pO2 ABG HCO3 ABG O2 Saturation ABG Base Excess ABG Hemoglobin Oxyhemoglobin Sodium Potassium Chloride Carbon Dioxide BUN Creatinine Glucose POC Glucose 155 H Lactic Acid Calcium Ionized Calcium Phosphorus Magnesium Iron TIBC Ferritin Total Bilirubin Direct Bilirubin 0.4 H AST 63 H ALT Alkaline Phosphatase Total Creatine Kinase CK-MB (CK-2) Troponin T C-Reactive Protein Serum Total Protein Total Protein 4.9 L Albumin 2.2 L Bbusi-1-Cwvsotdkz Slbvs-2-Msghnzivh PEP Interpretation Triglycerides LDL Cholesterol Direct HDL Cholesterol Free T4 PTH Intact Urine WBC (Auto) Urine Creatinine Salicylates Acetaminophen Crossmatch 03/31/19 03/31/19 03/31/19 04:44 05:44 08:20 WBC RBC Hgb Hct MCV MCHC RDW Plt Count Lymph % (Auto) [place] % (Auto) Lymph # [place] # Eos # Seg Neutrophils % Seg Neuts % (Manual) Lymphocytes % (Manual) Monocytes % (Manual) Nucleated RBC % Seg Neutrophils # Seg Neutrophils # Man Lymphocytes # (Manual) Monocytes # (Manual) PT INR D-Dimer Heparin Anti-Xa Level POC ABG pH ABG pH POC ABG pCO2 53.5 H POC ABG pO2 62 L ABG pO2 ABG HCO3 ABG O2 Saturation ABG Base Excess ABG Hemoglobin Oxyhemoglobin Sodium 135 L Potassium Chloride 96.7 L Carbon Dioxide 19 L BUN 94 H Creatinine 7.8 H Glucose POC Glucose Lactic Acid Calcium 5.3 L* Ionized Calcium Phosphorus 8.20 H Magnesium Iron TIBC Ferritin Total Bilirubin Direct Bilirubin 0.4 H AST 60 H ALT Alkaline Phosphatase Total Creatine Kinase CK-MB (CK-2) Troponin T C-Reactive Protein Serum Total Protein Total Protein 4.8 L Albumin 2.1 L Ibnaj-7-Neuwymzwc Uahjp-0-Xjubtuorw PEP Interpretation Triglycerides LDL Cholesterol Direct HDL Cholesterol Free T4 PTH Intact Urine WBC (Auto) Urine Creatinine Salicylates Acetaminophen Crossmatch 03/31/19 04/01/19 04/01/19 22:14 04:27 04:27 WBC RBC 2.60 L Hgb 8.0 L Hct 24.1 L MCV MCHC RDW 15.7 H Plt Count Lymph % (Auto) 7.9 L [place] % (Auto) Lymph # 0.7 L [place] # Eos # Seg Neutrophils % 83.6 H Seg Neuts % (Manual) Lymphocytes % (Manual) Monocytes % (Manual) Nucleated RBC % Seg Neutrophils # Seg Neutrophils # Man Lymphocytes # (Manual) Monocytes # (Manual) PT INR D-Dimer Heparin Anti-Xa Level POC ABG pH 7.286 L ABG pH POC ABG pCO2 54.7 H POC ABG pO2 179 H ABG pO2 ABG HCO3 ABG O2 Saturation ABG Base Excess ABG Hemoglobin Oxyhemoglobin Sodium Potassium Chloride Carbon Dioxide BUN 68 H Creatinine 6.6 H Glucose POC Glucose Lactic Acid Calcium 6.5 L D Ionized Calcium Phosphorus 7.30 H Magnesium Iron TIBC Ferritin Total Bilirubin Direct Bilirubin AST ALT Alkaline Phosphatase Total Creatine Kinase 1652 H CK-MB (CK-2) Troponin T C-Reactive Protein Serum Total Protein Total Protein Albumin [place]-3-Cjhbvrvem Fxyfj-4-Jwjhoeidp PEP Interpretation Triglycerides LDL Cholesterol Direct HDL Cholesterol Free T4 PTH Intact Urine WBC (Auto) Urine Creatinine Salicylates Acetaminophen Crossmatch 04/01/19 04/01/19 04/01/19 05:14 05:37 18:37 WBC RBC Hgb Hct MCV MCHC RDW Plt Count Lymph % (Auto) [place] % (Auto) Lymph # [place] # Eos # Seg Neutrophils % Seg Neuts % (Manual) Lymphocytes % (Manual) Monocytes % (Manual) Nucleated RBC % Seg Neutrophils # Seg Neutrophils # Man Lymphocytes # (Manual) Monocytes # (Manual) PT INR D-Dimer Heparin Anti-Xa Level POC ABG pH 7.283 L ABG pH POC ABG pCO2 53.4 H POC ABG pO2 241 H ABG pO2 ABG HCO3 ABG O2 Saturation ABG Base Excess ABG Hemoglobin Oxyhemoglobin Sodium Potassium Chloride Carbon Dioxide BUN Creatinine Glucose POC Glucose 111 H 119 H Lactic Acid Calcium Ionized Calcium Phosphorus Magnesium Iron TIBC Ferritin Total Bilirubin Direct Bilirubin AST ALT Alkaline Phosphatase Total Creatine Kinase CK-MB (CK-2) Troponin T C-Reactive Protein Serum Total Protein Total Protein Albumin Yhlwc-1-Pcyegdhtg Froba-5-Hmbfngppt PEP Interpretation Triglycerides LDL Cholesterol Direct HDL Cholesterol Free T4 PTH Intact Urine WBC (Auto) Urine Creatinine Salicylates Acetaminophen Crossmatch 04/01/19 04/02/19 04/02/19 21:28 04:40 05:03 WBC RBC 2.36 L Hgb 7.2 L Hct 21.9 L MCV MCHC RDW 16.0 H Plt Count Lymph % (Auto) 10.8 L [place] % (Auto) Lymph # 0.8 L [place] # Eos # Seg Neutrophils % 80.3 H Seg Neuts % (Manual) Lymphocytes % (Manual) Monocytes % (Manual) Nucleated RBC % Seg Neutrophils # Seg Neutrophils # Man Lymphocytes # (Manual) Monocytes # (Manual) PT INR D-Dimer Heparin Anti-Xa Level POC ABG pH 7.299 L 7.300 L ABG pH POC ABG pCO2 48.2 H 45.2 H POC ABG pO2 133 H 107 H ABG pO2 ABG HCO3 ABG O2 Saturation ABG Base Excess ABG Hemoglobin Oxyhemoglobin Sodium Potassium Chloride Carbon Dioxide BUN Creatinine Glucose POC Glucose Lactic Acid Calcium Ionized Calcium Phosphorus Magnesium Iron TIBC Ferritin Total Bilirubin Direct Bilirubin AST ALT Alkaline Phosphatase Total Creatine Kinase CK-MB (CK-2) Troponin T C-Reactive Protein Serum Total Protein Total Protein Albumin Tozcm-7-Toxxiwqhv Fzmfx-5-Furanipef PEP Interpretation Triglycerides LDL Cholesterol Direct HDL Cholesterol Free T4 PTH Intact Urine WBC (Auto) Urine Creatinine Salicylates Acetaminophen Crossmatch 04/02/19 04/02/19 04/02/19 05:03 05:03 12:15 WBC RBC Hgb 7.4 L Hct 22.6 L MCV MCHC RDW Plt Count Lymph % (Auto) [place] % (Auto) Lymph # [place] # Eos # Seg Neutrophils % Seg Neuts % (Manual) Lymphocytes % (Manual) Monocytes % (Manual) Nucleated RBC % Seg Neutrophils # Seg Neutrophils # Man Lymphocytes # (Manual) Monocytes # (Manual) PT INR D-Dimer Heparin Anti-Xa Level POC ABG pH ABG pH POC ABG pCO2 POC ABG pO2 ABG pO2 ABG HCO3 ABG O2 Saturation ABG Base Excess ABG Hemoglobin Oxyhemoglobin Sodium 136 L Potassium Chloride 97.8 L Carbon Dioxide 18 L BUN 82 H Creatinine 8.2 H Glucose POC Glucose Lactic Acid Calcium 6.7 L Ionized Calcium Phosphorus 7.50 H Magnesium Iron 26 L TIBC 138 L Ferritin 607.0 H Total Bilirubin Direct Bilirubin AST ALT Alkaline Phosphatase Total Creatine Kinase CK-MB (CK-2) Troponin T C-Reactive Protein Serum Total Protein Total Protein Albumin Psdnt-9-Zlvzawjxr Zqkto-0-Vnepabkau PEP Interpretation Triglycerides LDL Cholesterol Direct HDL Cholesterol Free T4 PTH Intact Urine WBC (Auto) Urine Creatinine Salicylates Acetaminophen Crossmatch 04/02/19 04/02/19 04/03/19 16:34 17:14 04:18 WBC RBC Hgb Hct MCV MCHC RDW Plt Count Lymph % (Auto) [place] % (Auto) Lymph # [place] # Eos # Seg Neutrophils % Seg Neuts % (Manual) Lymphocytes % (Manual) Monocytes % (Manual) Nucleated RBC % Seg Neutrophils # Seg Neutrophils # Man Lymphocytes # (Manual) Monocytes # (Manual) PT INR D-Dimer Heparin Anti-Xa Level POC ABG pH ABG pH POC ABG pCO2 POC ABG pO2 146 H ABG pO2 ABG HCO3 ABG O2 Saturation ABG Base Excess ABG Hemoglobin Oxyhemoglobin Sodium Potassium Chloride Carbon Dioxide BUN Creatinine Glucose POC Glucose 108 H Lactic Acid Calcium Ionized Calcium Phosphorus Magnesium Iron TIBC Ferritin Total Bilirubin Direct Bilirubin AST ALT Alkaline Phosphatase Total Creatine Kinase CK-MB (CK-2) Troponin T C-Reactive Protein Serum Total Protein Total Protein Albumin Miuou-8-Hawqytnfy Wfyir-4-Idihrcani PEP Interpretation Triglycerides LDL Cholesterol Direct HDL Cholesterol Free T4 PTH Intact Urine WBC (Auto) Urine Creatinine Salicylates Acetaminophen Crossmatch See Detail 04/03/19 04/03/19 04/03/19 04:25 08:30 18:24 WBC RBC 2.40 L Hgb 7.3 L Hct 21.9 L MCV MCHC RDW Plt Count Lymph % (Auto) [place] % (Auto) 7.7 H Lymph # 0.9 L [place] # Eos # Seg Neutrophils % 74.6 H Seg Neuts % (Manual) Lymphocytes % (Manual) Monocytes % (Manual) Nucleated RBC % Seg Neutrophils # Seg Neutrophils # Man Lymphocytes # (Manual) Monocytes # (Manual) PT INR D-Dimer Heparin Anti-Xa Level POC ABG pH ABG pH POC ABG pCO2 POC ABG pO2 ABG pO2 ABG HCO3 ABG O2 Saturation ABG Base Excess ABG Hemoglobin Oxyhemoglobin Sodium 136 L Potassium Chloride 97.0 L Carbon Dioxide BUN 58 H Creatinine 7.3 H Glucose POC Glucose 106 H Lactic Acid Calcium 7.5 L Ionized Calcium Phosphorus 5.80 H D Magnesium Iron TIBC Ferritin Total Bilirubin Direct Bilirubin AST ALT Alkaline Phosphatase Total Creatine Kinase CK-MB (CK-2) Troponin T C-Reactive Protein Serum Total Protein Total Protein Albumin Qmpwo-7-Hpflzkuim Ggxkz-5-Ntzamvgrz PEP Interpretation Triglycerides LDL Cholesterol Direct HDL Cholesterol Free T4 PTH Intact Urine WBC (Auto) Urine Creatinine Salicylates Acetaminophen Crossmatch 04/03/19 04/04/19 04/04/19 23:43 04:47 04:47 WBC RBC 2.72 L Hgb 8.3 L Hct 24.7 L MCV MCHC RDW 15.6 H Plt Count Lymph % (Auto) [place] % (Auto) 10.1 H Lymph # 0.8 L [place] # Eos # Seg Neutrophils % 71.4 H Seg Neuts % (Manual) Lymphocytes % (Manual) Monocytes % (Manual) Nucleated RBC % Seg Neutrophils # Seg Neutrophils # Man Lymphocytes # (Manual) Monocytes # (Manual) PT INR D-Dimer Heparin Anti-Xa Level POC ABG pH ABG pH POC ABG pCO2 POC ABG pO2 ABG pO2 123.8 H ABG HCO3 ABG O2 Saturation ABG Base Excess -3.0 L ABG Hemoglobin 7.9 L Oxyhemoglobin Sodium 134 L Potassium Chloride 97.9 L Carbon Dioxide BUN 64 H Creatinine 8.1 H Glucose POC Glucose Lactic Acid Calcium 7.2 L Ionized Calcium Phosphorus Magnesium Iron TIBC Ferritin Total Bilirubin Direct Bilirubin AST ALT Alkaline Phosphatase Total Creatine Kinase CK-MB (CK-2) Troponin T C-Reactive Protein Serum Total Protein Total Protein Albumin Zsrhv-4-Zymhbhqsc Ignfj-2-Tlpfqpdaa PEP Interpretation Triglycerides LDL Cholesterol Direct HDL Cholesterol Free T4 PTH Intact Urine WBC (Auto) Urine Creatinine Salicylates Acetaminophen Crossmatch 04/04/19 04/04/1919 06:07 13:40 18:18 WBC RBC Hgb Hct MCV MCHC RDW Plt Count Lymph % (Auto) [place] % (Auto) Lymph # [place] # Eos # Seg Neutrophils % Seg Neuts % (Manual) Lymphocytes % (Manual) Monocytes % (Manual) Nucleated RBC % Seg Neutrophils # Seg Neutrophils # Man Lymphocytes # (Manual) Monocytes # (Manual) PT INR D-Dimer Heparin Anti-Xa Level POC ABG pH ABG pH POC ABG pCO2 POC ABG pO2 ABG pO2 95.9 H ABG HCO3 ABG O2 Saturation ABG Base Excess -3.0 L ABG Hemoglobin 8.5 L Oxyhemoglobin Sodium Potassium Chloride Carbon Dioxide BUN Creatinine Glucose POC Glucose 107 H 107 H Lactic Acid Calcium Ionized Calcium Phosphorus Magnesium Iron TIBC Ferritin Total Bilirubin Direct Bilirubin AST ALT Alkaline Phosphatase Total Creatine Kinase CK-MB (CK-2) Troponin T C-Reactive Protein Serum Total Protein Total Protein Albumin Pgyoq-8-Kdlcpzagb Vxgwb-5-Klvcbexcx PEP Interpretation Triglycerides LDL Cholesterol Direct HDL Cholesterol Free T4 PTH Intact Urine WBC (Auto) Urine Creatinine Salicylates Acetaminophen Crossmatch 04/04/19 04/05/19 04/05/19 21:22 04:09 04:09 WBC RBC 2.76 L Hgb 8.4 L Hct 25.4 L MCV MCHC RDW 15.8 H Plt Count 133 L Lymph % (Auto) [place] % (Auto) 9.6 H Lymph # 0.7 L [place] # Eos # Seg Neutrophils % 72.6 H Seg Neuts % (Manual) Lymphocytes % (Manual) Monocytes % (Manual) Nucleated RBC % Seg Neutrophils # Seg Neutrophils # Man Lymphocytes # (Manual) Monocytes # (Manual) PT INR D-Dimer Heparin Anti-Xa Level POC ABG pH ABG pH POC ABG pCO2 47.2 H POC ABG pO2 137 H ABG pO2 ABG HCO3 ABG O2 Saturation ABG Base Excess ABG Hemoglobin Oxyhemoglobin Sodium 136 L Potassium Chloride Carbon Dioxide BUN 46 H Creatinine 6.7 H Glucose POC Glucose Lactic Acid Calcium 7.7 L Ionized Calcium Phosphorus Magnesium Iron TIBC Ferritin Total Bilirubin Direct Bilirubin AST ALT Alkaline Phosphatase Total Creatine Kinase CK-MB (CK-2) Troponin T C-Reactive Protein Serum Total Protein Total Protein Albumin Cgwpa-4-Oyeoaudiu Khdbv-4-Lyixlbfab PEP Interpretation Triglycerides LDL Cholesterol Direct HDL Cholesterol Free T4 PTH Intact Urine WBC (Auto) Urine Creatinine Salicylates Acetaminophen Crossmatch 04/05/19 04/05/19 04/05/19 05:28 06:14 16:50 WBC RBC Hgb Hct MCV MCHC RDW Plt Count Lymph % (Auto) [place] % (Auto) Lymph # [place] # Eos # Seg Neutrophils % Seg Neuts % (Manual) Lymphocytes % (Manual) Monocytes % (Manual) Nucleated RBC % Seg Neutrophils # Seg Neutrophils # Man Lymphocytes # (Manual) Monocytes # (Manual) PT INR D-Dimer Heparin Anti-Xa Level POC ABG pH ABG pH POC ABG pCO2 POC ABG pO2 67 L ABG pO2 ABG HCO3 ABG O2 Saturation ABG Base Excess ABG Hemoglobin Oxyhemoglobin Sodium Potassium Chloride Carbon Dioxide BUN Creatinine Glucose POC Glucose 108 H Lactic Acid Calcium Ionized Calcium Phosphorus Magnesium Iron TIBC Ferritin Total Bilirubin Direct Bilirubin AST ALT Alkaline Phosphatase Total Creatine Kinase CK-MB (CK-2) Troponin T C-Reactive Protein Serum Total Protein Total Protein Albumin Xdyul-9-Nbrfwubjw Nhxne-8-Jgntknyvm PEP Interpretation Triglycerides LDL Cholesterol Direct HDL Cholesterol Free T4 PTH Intact Urine WBC (Auto) 40.0 H Urine Creatinine Salicylates Acetaminophen Crossmatch 04/05/19 04/06/19 04/06/19 17:22 00:13 04:44 WBC RBC 2.48 L Hgb 7.5 L Hct 22.9 L MCV MCHC RDW 16.0 H Plt Count 107 L Lymph % (Auto) [place] % (Auto) 10.7 H Lymph # 1.0 L [place] # Eos # Seg Neutrophils % Seg Neuts % (Manual) Lymphocytes % (Manual) Monocytes % (Manual) Nucleated RBC % Seg Neutrophils # Seg Neutrophils # Man Lymphocytes # (Manual) Monocytes # (Manual) PT INR D-Dimer Heparin Anti-Xa Level POC ABG pH ABG pH POC ABG pCO2 POC ABG pO2 ABG pO2 ABG HCO3 ABG O2 Saturation ABG Base Excess ABG Hemoglobin Oxyhemoglobin Sodium Potassium Chloride Carbon Dioxide BUN Creatinine Glucose POC Glucose 118 H 138 H Lactic Acid Calcium Ionized Calcium Phosphorus Magnesium Iron TIBC Ferritin Total Bilirubin Direct Bilirubin AST ALT Alkaline Phosphatase Total Creatine Kinase CK-MB (CK-2) Troponin T C-Reactive Protein Serum Total Protein Total Protein Albumin Glfty-6-Ibmbqakdb Vtcbl-4-Kzelerfay PEP Interpretation Triglycerides LDL Cholesterol Direct HDL Cholesterol Free T4 PTH Intact Urine WBC (Auto) Urine Creatinine Salicylates Acetaminophen Crossmatch 04/06/19 04/06/19 04/06/19 04:44 05:20 05:23 WBC RBC Hgb Hct MCV MCHC RDW Plt Count Lymph % (Auto) [place] % (Auto) Lymph # [place] # Eos # Seg Neutrophils % Seg Neuts % (Manual) Lymphocytes % (Manual) Monocytes % (Manual) Nucleated RBC % Seg Neutrophils # Seg Neutrophils # Man Lymphocytes # (Manual) Monocytes # (Manual) PT INR D-Dimer Heparin Anti-Xa Level POC ABG pH ABG pH POC ABG pCO2 POC ABG pO2 ABG pO2 104.0 H ABG HCO3 ABG O2 Saturation ABG Base Excess -2.1 L ABG Hemoglobin 7.3 L Oxyhemoglobin Sodium Potassium Chloride Carbon Dioxide BUN 64 H Creatinine 8.2 H Glucose 103 H POC Glucose 118 H Lactic Acid Calcium 7.3 L Ionized Calcium Phosphorus Magnesium Iron TIBC Ferritin Total Bilirubin Direct Bilirubin AST ALT Alkaline Phosphatase Total Creatine Kinase CK-MB (CK-2) Troponin T C-Reactive Protein Serum Total Protein Total Protein Albumin Pvnvh-6-Taakjwakr Iuwdn-0-Lbikhkjgz PEP Interpretation Triglycerides LDL Cholesterol Direct HDL Cholesterol Free T4 PTH Intact Urine WBC (Auto) Urine Creatinine Salicylates Acetaminophen Crossmatch 04/06/19 04/07/19 04/07/19 12:02 05:40 05:40 WBC RBC 2.59 L Hgb 7.9 L Hct 23.8 L MCV MCHC RDW 15.8 H Plt Count 89 L Lymph % (Auto) [place] % (Auto) 10.3 H Lymph # 1.1 L [place] # Eos # Seg Neutrophils % Seg Neuts % (Manual) Lymphocytes % (Manual) Monocytes % (Manual) Nucleated RBC % Seg Neutrophils # Seg Neutrophils # Man Lymphocytes # (Manual) Monocytes # (Manual) PT INR D-Dimer Heparin Anti-Xa Level POC ABG pH ABG pH POC ABG pCO2 POC ABG pO2 ABG pO2 ABG HCO3 ABG O2 Saturation ABG Base Excess ABG Hemoglobin Oxyhemoglobin Sodium 136 L Potassium 3.5 L Chloride Carbon Dioxide BUN 46 H Creatinine 6.2 H Glucose POC Glucose 108 H Lactic Acid Calcium 7.9 L Ionized Calcium Phosphorus Magnesium Iron TIBC Ferritin Total Bilirubin Direct Bilirubin AST ALT Alkaline Phosphatase Total Creatine Kinase CK-MB (CK-2) Troponin T C-Reactive Protein Serum Total Protein Total Protein Albumin Tytdv-6-Ibkmyujag Ibdqz-6-Kdfmybboh PEP Interpretation Triglycerides LDL Cholesterol Direct HDL Cholesterol Free T4 PTH Intact Urine WBC (Auto) Urine Creatinine Salicylates Acetaminophen Crossmatch 04/07/19 04/09/19 04/09/19 12:57 04:28 04:28 WBC RBC 2.85 L Hgb 8.7 L Hct 26.2 L MCV MCHC RDW 15.6 H Plt Count Lymph % (Auto) [place] % (Auto) 10.4 H Lymph # 1.0 L [place] # Eos # Seg Neutrophils % 73.3 H Seg Neuts % (Manual) Lymphocytes % (Manual) Monocytes % (Manual) Nucleated RBC % Seg Neutrophils # Seg Neutrophils # Man Lymphocytes # (Manual) Monocytes # (Manual) PT INR D-Dimer Heparin Anti-Xa Level POC ABG pH ABG pH POC ABG pCO2 POC ABG pO2 107 H ABG pO2 ABG HCO3 ABG O2 Saturation ABG Base Excess ABG Hemoglobin Oxyhemoglobin Sodium Potassium 3.5 L Chloride 97.8 L Carbon Dioxide BUN 62 H Creatinine 8.1 H Glucose POC Glucose Lactic Acid Calcium 8.2 L Ionized Calcium Phosphorus 5.10 H Magnesium Iron TIBC Ferritin Total Bilirubin Direct Bilirubin AST ALT Alkaline Phosphatase Total Creatine Kinase CK-MB (CK-2) Troponin T C-Reactive Protein Serum Total Protein Total Protein Albumin Nlkil-8-Cnscodrbr Xfmqg-7-Tzenlxtcv PEP Interpretation Triglycerides LDL Cholesterol Direct HDL Cholesterol Free T4 PTH Intact Urine WBC (Auto) Urine Creatinine Salicylates Acetaminophen Crossmatch 04/10/19 04/11/19 04/11/19 18:15 00:25 04:16 WBC 11.5 H RBC 2.91 L Hgb 8.9 L Hct 27.6 L MCV 95 H MCHC RDW 17.5 H Plt Count Lymph % (Auto) [place] % (Auto) Lymph # [place] # Eos # Seg Neutrophils % Seg Neuts % (Manual) 71.0 H Lymphocytes % (Manual) Monocytes % (Manual) 8.0 H Nucleated RBC % Seg Neutrophils # Seg Neutrophils # Man 8.2 H Lymphocytes # (Manual) Monocytes # (Manual) 0.9 H PT INR D-Dimer Heparin Anti-Xa Level POC ABG pH ABG pH POC ABG pCO2 POC ABG pO2 ABG pO2 ABG HCO3 ABG O2 Saturation ABG Base Excess ABG Hemoglobin Oxyhemoglobin Sodium Potassium Chloride Carbon Dioxide BUN Creatinine Glucose POC Glucose 109 H 114 H Lactic Acid Calcium Ionized Calcium Phosphorus Magnesium Iron TIBC Ferritin Total Bilirubin Direct Bilirubin AST ALT Alkaline Phosphatase Total Creatine Kinase CK-MB (CK-2) Troponin T C-Reactive Protein Serum Total Protein Total Protein Albumin Exntg-4-Oqaarljmx Ilkby-1-Fodopncgh PEP Interpretation Triglycerides LDL Cholesterol Direct HDL Cholesterol Free T4 PTH Intact Urine WBC (Auto) Urine Creatinine Salicylates Acetaminophen Crossmatch 04/11/19 04/11/19 04/11/19 06:47 09:21 12:15 WBC RBC Hgb Hct MCV MCHC RDW Plt Count Lymph % (Auto) [place] % (Auto) Lymph # [place] # Eos # Seg Neutrophils % Seg Neuts % (Manual) Lymphocytes % (Manual) Monocytes % (Manual) Nucleated RBC % Seg Neutrophils # Seg Neutrophils # Man Lymphocytes # (Manual) Monocytes # (Manual) PT INR D-Dimer Heparin Anti-Xa Level POC ABG pH ABG pH POC ABG pCO2 POC ABG pO2 ABG pO2 ABG HCO3 ABG O2 Saturation ABG Base Excess ABG Hemoglobin Oxyhemoglobin Sodium Potassium 3.5 L Chloride Carbon Dioxide BUN 45 H Creatinine 6.0 H Glucose 113 H POC Glucose 106 H 109 H Lactic Acid Calcium Ionized Calcium Phosphorus Magnesium Iron TIBC Ferritin Total Bilirubin Direct Bilirubin AST ALT Alkaline Phosphatase Total Creatine Kinase CK-MB (CK-2) Troponin T C-Reactive Protein Serum Total Protein Total Protein Albumin Cqbel-4-Ozocgvqcu Amdea-2-Gnyfslbqu PEP Interpretation Triglycerides LDL Cholesterol Direct HDL Cholesterol Free T4 PTH Intact Urine WBC (Auto) Urine Creatinine Salicylates Acetaminophen Crossmatch 04/11/19 04/12/19 04/12/19 18:42 12:13 23:52 WBC RBC Hgb Hct MCV MCHC RDW Plt Count Lymph % (Auto) [place] % (Auto) Lymph # [place] # Eos # Seg Neutrophils % Seg Neuts % (Manual) Lymphocytes % (Manual) Monocytes % (Manual) Nucleated RBC % Seg Neutrophils # Seg Neutrophils # Man Lymphocytes # (Manual) Monocytes # (Manual) PT INR D-Dimer Heparin Anti-Xa Level POC ABG pH ABG pH POC ABG pCO2 POC ABG pO2 ABG pO2 ABG HCO3 ABG O2 Saturation ABG Base Excess ABG Hemoglobin Oxyhemoglobin Sodium Potassium Chloride Carbon Dioxide BUN Creatinine Glucose POC Glucose 107 H 115 H 124 H Lactic Acid Calcium Ionized Calcium Phosphorus Magnesium Iron TIBC Ferritin Total Bilirubin Direct Bilirubin AST ALT Alkaline Phosphatase Total Creatine Kinase CK-MB (CK-2) Troponin T C-Reactive Protein Serum Total Protein Total Protein Albumin Ynyuh-8-Tmskmlwve Knltd-5-Zpcykplnw PEP Interpretation Triglycerides LDL Cholesterol Direct HDL Cholesterol Free T4 PTH Intact Urine WBC (Auto) Urine Creatinine Salicylates Acetaminophen Crossmatch 04/13/19 04/13/19 04/13/19 05:00 05:00 05:47 WBC 11.7 H RBC 2.97 L Hgb 8.8 L Hct 27.3 L MCV MCHC RDW 16.1 H Plt Count Lymph % (Auto) 9.5 L [place] % (Auto) 9.9 H Lymph # 1.1 L [place] # 1.2 H Eos # Seg Neutrophils % 78.6 H Seg Neuts % (Manual) Lymphocytes % (Manual) Monocytes % (Manual) Nucleated RBC % Seg Neutrophils # 9.2 H Seg Neutrophils # Man Lymphocytes # (Manual) Monocytes # (Manual) PT INR D-Dimer Heparin Anti-Xa Level POC ABG pH ABG pH POC ABG pCO2 POC ABG pO2 ABG pO2 ABG HCO3 ABG O2 Saturation ABG Base Excess ABG Hemoglobin Oxyhemoglobin Sodium Potassium 3.5 L Chloride Carbon Dioxide BUN 42 H Creatinine 4.6 H Glucose 106 H POC Glucose 107 H Lactic Acid Calcium 10.6 H D Ionized Calcium Phosphorus 5.90 H Magnesium Iron TIBC Ferritin Total Bilirubin Direct Bilirubin AST ALT Alkaline Phosphatase Total Creatine Kinase CK-MB (CK-2) Troponin T C-Reactive Protein Serum Total Protein Total Protein 5.8 L Albumin 2.5 L Kqgmv-6-Jnoihpcso Hbwve-2-Pbfjsamqz PEP Interpretation Triglycerides LDL Cholesterol Direct HDL Cholesterol Free T4 PTH Intact Urine WBC (Auto) Urine Creatinine Salicylates Acetaminophen Crossmatch 04/13/19 04/14/19 04/14/19 17:32 00:00 03:55 WBC RBC Hgb Hct MCV MCHC RDW Plt Count Lymph % (Auto) [place] % (Auto) Lymph # [place] # Eos # Seg Neutrophils % Seg Neuts % (Manual) Lymphocytes % (Manual) Monocytes % (Manual) Nucleated RBC % Seg Neutrophils # Seg Neutrophils # Man Lymphocytes # (Manual) Monocytes # (Manual) PT INR D-Dimer Heparin Anti-Xa Level POC ABG pH ABG pH POC ABG pCO2 POC ABG pO2 ABG pO2 ABG HCO3 ABG O2 Saturation ABG Base Excess ABG Hemoglobin Oxyhemoglobin Sodium Potassium 3.0 L Chloride Carbon Dioxide BUN 30 H Creatinine 3.1 H Glucose POC Glucose 112 H 120 H Lactic Acid Calcium 10.8 H Ionized Calcium Phosphorus Magnesium Iron TIBC Ferritin Total Bilirubin Direct Bilirubin AST ALT Alkaline Phosphatase Total Creatine Kinase CK-MB (CK-2) Troponin T C-Reactive Protein Serum Total Protein Total Protein Albumin Zsvdi-0-Uaqiemsyl Auxdr-3-Qivgelxud PEP Interpretation Triglycerides LDL Cholesterol Direct HDL Cholesterol Free T4 PTH Intact Urine WBC (Auto) Urine Creatinine Salicylates Acetaminophen Crossmatch 04/14/19 04/14/19 04/15/19 11:56 23:28 05:11 WBC 13.0 H RBC 2.93 L Hgb 8.6 L Hct 26.5 L MCV MCHC RDW 16.5 H Plt Count Lymph % (Auto) 12.2 L [place] % (Auto) 9.1 H Lymph # [place] # 1.2 H Eos # Seg Neutrophils % 77.6 H Seg Neuts % (Manual) Lymphocytes % (Manual) Monocytes % (Manual) Nucleated RBC % Seg Neutrophils # 10.1 H Seg Neutrophils # Man Lymphocytes # (Manual) Monocytes # (Manual) PT INR D-Dimer Heparin Anti-Xa Level POC ABG pH ABG pH POC ABG pCO2 POC ABG pO2 ABG pO2 ABG HCO3 ABG O2 Saturation ABG Base Excess ABG Hemoglobin Oxyhemoglobin Sodium Potassium Chloride Carbon Dioxide BUN Creatinine Glucose POC Glucose 109 H 112 H Lactic Acid Calcium Ionized Calcium Phosphorus Magnesium Iron TIBC Ferritin Total Bilirubin Direct Bilirubin AST ALT Alkaline Phosphatase Total Creatine Kinase CK-MB (CK-2) Troponin T C-Reactive Protein Serum Total Protein Total Protein Albumin Scauw-8-Kxatlthbe Cbaty-5-Wtgltyayv PEP Interpretation Triglycerides LDL Cholesterol Direct HDL Cholesterol Free T4 PTH Intact Urine WBC (Auto) Urine Creatinine Salicylates Acetaminophen Crossmatch 04/15/19 04/15/19 04/15/19 05:11 05:31 18:03 WBC RBC Hgb Hct MCV MCHC RDW Plt Count Lymph % (Auto) [place] % (Auto) Lymph # [place] # Eos # Seg Neutrophils % Seg Neuts % (Manual) Lymphocytes % (Manual) Monocytes % (Manual) Nucleated RBC % Seg Neutrophils # Seg Neutrophils # Man Lymphocytes # (Manual) Monocytes # (Manual) PT INR D-Dimer Heparin Anti-Xa Level POC ABG pH ABG pH POC ABG pCO2 POC ABG pO2 ABG pO2 ABG HCO3 ABG O2 Saturation ABG Base Excess ABG Hemoglobin Oxyhemoglobin Sodium Potassium 3.2 L Chloride Carbon Dioxide BUN 44 H Creatinine 3.6 H Glucose 106 H POC Glucose 110 H 121 H Lactic Acid Calcium 12.0 H Ionized Calcium Phosphorus 5.00 H Magnesium Iron TIBC Ferritin Total Bilirubin Direct Bilirubin AST ALT Alkaline Phosphatase Total Creatine Kinase CK-MB (CK-2) Troponin T C-Reactive Protein Serum Total Protein Total Protein Albumin Vobwx-5-Qljcaguhr Umfzn-2-Sbphbfziy PEP Interpretation Triglycerides LDL Cholesterol Direct HDL Cholesterol Free T4 PTH Intact Urine WBC (Auto) Urine Creatinine Salicylates Acetaminophen Crossmatch 04/16/19 04/16/19 04/17/19 05:07 05:07 04:15 WBC 12.6 H RBC 3.12 L Hgb 9.0 L Hct 28.2 L MCV MCHC RDW 16.6 H Plt Count Lymph % (Auto) 10.3 L [place] % (Auto) 9.8 H Lymph # [place] # 1.2 H Eos # Seg Neutrophils % 78.2 H Seg Neuts % (Manual) Lymphocytes % (Manual) Monocytes % (Manual) Nucleated RBC % Seg Neutrophils # 9.9 H Seg Neutrophils # Man Lymphocytes # (Manual) Monocytes # (Manual) PT INR D-Dimer Heparin Anti-Xa Level POC ABG pH ABG pH POC ABG pCO2 POC ABG pO2 ABG pO2 ABG HCO3 ABG O2 Saturation ABG Base Excess ABG Hemoglobin Oxyhemoglobin Sodium 147 H 150 H Potassium 3.5 L 3.1 L Chloride Carbon Dioxide 32 H BUN 54 H 65 H Creatinine 3.8 H 4.0 H Glucose 102 H 107 H POC Glucose Lactic Acid Calcium 11.7 H 12.0 H Ionized Calcium Phosphorus 5.40 H Magnesium Iron TIBC Ferritin Total Bilirubin Direct Bilirubin AST ALT Alkaline Phosphatase Total Creatine Kinase CK-MB (CK-2) Troponin T C-Reactive Protein 7.10 H Serum Total Protein Total Protein Albumin Bxywr-0-Qsoykwtmo Siusa-0-Beqxdcykm PEP Interpretation Triglycerides LDL Cholesterol Direct HDL Cholesterol Free T4 PTH Intact Urine WBC (Auto) Urine Creatinine Salicylates Acetaminophen Crossmatch 04/17/19 04/17/19 04/17/19 04:15 06:05 12:49 WBC 15.8 H RBC 3.32 L Hgb 9.5 L Hct 29.9 L MCV MCHC RDW 16.9 H Plt Count Lymph % (Auto) 12.6 L [place] % (Auto) 11.1 H Lymph # [place] # 1.7 H Eos # Seg Neutrophils % 74.7 H Seg Neuts % (Manual) Lymphocytes % (Manual) Monocytes % (Manual) Nucleated RBC % Seg Neutrophils # 11.8 H Seg Neutrophils # Man Lymphocytes # (Manual) Monocytes # (Manual) PT INR D-Dimer Heparin Anti-Xa Level POC ABG pH ABG pH POC ABG pCO2 POC ABG pO2 ABG pO2 ABG HCO3 ABG O2 Saturation ABG Base Excess ABG Hemoglobin Oxyhemoglobin Sodium Potassium Chloride Carbon Dioxide BUN Creatinine Glucose POC Glucose 111 H 108 H Lactic Acid Calcium Ionized Calcium Phosphorus Magnesium Iron TIBC Ferritin Total Bilirubin Direct Bilirubin AST ALT Alkaline Phosphatase Total Creatine Kinase CK-MB (CK-2) Troponin T C-Reactive Protein Serum Total Protein Total Protein Albumin Wtbdo-8-Gehurqfcj Gzxoo-3-Hxbnojyno PEP Interpretation Triglycerides LDL Cholesterol Direct HDL Cholesterol Free T4 PTH Intact Urine WBC (Auto) Urine Creatinine Salicylates Acetaminophen Crossmatch 04/18/19 04/18/19 04/18/19 00:23 04:41 04:41 WBC 19.4 H RBC 3.03 L Hgb 8.6 L Hct 27.5 L MCV MCHC 31 L RDW 16.9 H Plt Count Lymph % (Auto) [place] % (Auto) Lymph # [place] # Eos # Seg Neutrophils % Seg Neuts % (Manual) Lymphocytes % (Manual) Monocytes % (Manual) Nucleated RBC % Seg Neutrophils # Seg Neutrophils # Man Lymphocytes # (Manual) Monocytes # (Manual) PT INR D-Dimer Heparin Anti-Xa Level POC ABG pH ABG pH POC ABG pCO2 POC ABG pO2 ABG pO2 ABG HCO3 ABG O2 Saturation ABG Base Excess ABG Hemoglobin Oxyhemoglobin Sodium 152 H Potassium 3.0 L Chloride Carbon Dioxide BUN 80 H Creatinine 4.3 H Glucose 103 H POC Glucose 115 H Lactic Acid Calcium 11.4 H Ionized Calcium Phosphorus Magnesium Iron TIBC Ferritin Total Bilirubin Direct Bilirubin AST ALT Alkaline Phosphatase Total Creatine Kinase CK-MB (CK-2) Troponin T C-Reactive Protein Serum Total Protein Total Protein Albumin Wyrbr-1-Pyaznzwyr Pbxbv-7-Hxqidpfhb PEP Interpretation Triglycerides LDL Cholesterol Direct HDL Cholesterol Free T4 PTH Intact Urine WBC (Auto) Urine Creatinine Salicylates Acetaminophen Crossmatch 04/18/19 04/18/19 04/18/19 06:17 12:16 18:10 WBC RBC Hgb Hct MCV MCHC RDW Plt Count Lymph % (Auto) [place] % (Auto) Lymph # [place] # Eos # Seg Neutrophils % Seg Neuts % (Manual) Lymphocytes % (Manual) Monocytes % (Manual) Nucleated RBC % Seg Neutrophils # Seg Neutrophils # Man Lymphocytes # (Manual) Monocytes # (Manual) PT INR D-Dimer Heparin Anti-Xa Level POC ABG pH ABG pH POC ABG pCO2 POC ABG pO2 ABG pO2 ABG HCO3 ABG O2 Saturation ABG Base Excess ABG Hemoglobin Oxyhemoglobin Sodium Potassium Chloride Carbon Dioxide BUN Creatinine Glucose POC Glucose 124 H 119 H 111 H Lactic Acid Calcium Ionized Calcium Phosphorus Magnesium Iron TIBC Ferritin Total Bilirubin Direct Bilirubin AST ALT Alkaline Phosphatase Total Creatine Kinase CK-MB (CK-2) Troponin T C-Reactive Protein Serum Total Protein Total Protein Albumin Neonn-4-Mjhznugts Odhfs-2-Iowhlextf PEP Interpretation Triglycerides LDL Cholesterol Direct HDL Cholesterol Free T4 PTH Intact Urine WBC (Auto) Urine Creatinine Salicylates Acetaminophen Crossmatch 04/19/19 04/19/19 04/20/19 03:49 05:27 09:09 WBC RBC Hgb Hct MCV MCHC RDW Plt Count Lymph % (Auto) [place] % (Auto) Lymph # [place] # Eos # Seg Neutrophils % Seg Neuts % (Manual) Lymphocytes % (Manual) Monocytes % (Manual) Nucleated RBC % Seg Neutrophils # Seg Neutrophils # Man Lymphocytes # (Manual) Monocytes # (Manual) PT INR D-Dimer Heparin Anti-Xa Level POC ABG pH ABG pH POC ABG pCO2 POC ABG pO2 ABG pO2 ABG HCO3 ABG O2 Saturation ABG Base Excess ABG Hemoglobin Oxyhemoglobin Sodium 147 H 150 H Potassium 3.3 L Chloride 108.9 H Carbon Dioxide BUN 45 H 70 H Creatinine 2.9 H 4.1 H Glucose 105 H POC Glucose 124 H Lactic Acid Calcium 10.6 H 11.6 H Ionized Calcium Phosphorus Magnesium Iron TIBC Ferritin Total Bilirubin Direct Bilirubin AST ALT Alkaline Phosphatase Total Creatine Kinase CK-MB (CK-2) Troponin T C-Reactive Protein Serum Total Protein Total Protein Albumin Qdfix-9-Gfxpsirez Wahwy-5-Sbxlcpiff PEP Interpretation Triglycerides LDL Cholesterol Direct HDL Cholesterol Free T4 PTH Intact Urine WBC (Auto) Urine Creatinine Salicylates Acetaminophen Crossmatch 04/20/19 04/20/19 04/21/19 12:29 18:45 01:34 WBC RBC Hgb Hct MCV MCHC RDW Plt Count Lymph % (Auto) [place] % (Auto) Lymph # [place] # Eos # Seg Neutrophils % Seg Neuts % (Manual) Lymphocytes % (Manual) Monocytes % (Manual) Nucleated RBC % Seg Neutrophils # Seg Neutrophils # Man Lymphocytes # (Manual) Monocytes # (Manual) PT INR D-Dimer Heparin Anti-Xa Level POC ABG pH ABG pH POC ABG pCO2 POC ABG pO2 ABG pO2 ABG HCO3 ABG O2 Saturation ABG Base Excess ABG Hemoglobin Oxyhemoglobin Sodium Potassium Chloride Carbon Dioxide BUN 40 H Creatinine 2.6 H Glucose 104 H POC Glucose 131 H 134 H Lactic Acid Calcium 11.0 H Ionized Calcium Phosphorus Magnesium Iron TIBC Ferritin Total Bilirubin Direct Bilirubin AST ALT Alkaline Phosphatase Total Creatine Kinase CK-MB (CK-2) Troponin T C-Reactive Protein Serum Total Protein Total Protein Albumin Xllvy-3-Aryrjgdch [place]-9-Lygkverrd PEP Interpretation Triglycerides LDL Cholesterol Direct HDL Cholesterol Free T4 PTH Intact Urine WBC (Auto) Urine Creatinine Salicylates Acetaminophen Crossmatch 04/21/19 04/21/19 04/22/19 04:22 04:22 04:24 WBC 14.2 H 14.3 H RBC 3.02 L 3.57 L Hgb 8.7 L 10.1 L Hct 27.2 L 32.1 L MCV MCHC RDW 16.7 H 17.2 H Plt Count Lymph % (Auto) [place] % (Auto) Lymph # [place] # Eos # Seg Neutrophils % Seg Neuts % (Manual) Lymphocytes % (Manual) Monocytes % (Manual) Nucleated RBC % Seg Neutrophils # Seg Neutrophils # Man Lymphocytes # (Manual) Monocytes # (Manual) PT INR D-Dimer Heparin Anti-Xa Level POC ABG pH ABG pH POC ABG pCO2 POC ABG pO2 ABG pO2 ABG HCO3 ABG O2 Saturation ABG Base Excess ABG Hemoglobin Oxyhemoglobin Sodium Potassium Chloride Carbon Dioxide BUN Creatinine Glucose POC Glucose Lactic Acid Calcium Ionized Calcium Phosphorus Magnesium Iron TIBC Ferritin Total Bilirubin Direct Bilirubin AST ALT Alkaline Phosphatase Total Creatine Kinase CK-MB (CK-2) Troponin T C-Reactive Protein Serum Total Protein 5.7 L Total Protein Albumin 2.3 L Jqicu-6-Yiysisubl 0.5 H Kcwda-4-Wtngystsj 1.0 H PEP Interpretation see below H Triglycerides LDL Cholesterol Direct HDL Cholesterol Free T4 PTH Intact Urine WBC (Auto) Urine Creatinine Salicylates Acetaminophen Crossmatch 04/22/19 04/22/19 04/22/19 04:24 06:37 11:57 WBC RBC Hgb Hct MCV MCHC RDW Plt Count Lymph % (Auto) [place] % (Auto) Lymph # [place] # Eos # Seg Neutrophils % Seg Neuts % (Manual) Lymphocytes % (Manual) Monocytes % (Manual) Nucleated RBC % Seg Neutrophils # Seg Neutrophils # Man Lymphocytes # (Manual) Monocytes # (Manual) PT INR D-Dimer Heparin Anti-Xa Level POC ABG pH ABG pH POC ABG pCO2 POC ABG pO2 ABG pO2 ABG HCO3 ABG O2 Saturation ABG Base Excess ABG Hemoglobin Oxyhemoglobin Sodium Potassium Chloride Carbon Dioxide BUN 54 H Creatinine 3.5 H Glucose POC Glucose 113 H 110 H Lactic Acid Calcium 11.4 H Ionized Calcium Phosphorus Magnesium Iron TIBC Ferritin Total Bilirubin Direct Bilirubin AST ALT Alkaline Phosphatase Total Creatine Kinase CK-MB (CK-2) Troponin T C-Reactive Protein Serum Total Protein Total Protein Albumin Ytygy-6-Ofzjncwqk Jmnxs-3-Yglwahipe PEP Interpretation Triglycerides LDL Cholesterol Direct HDL Cholesterol Free T4 PTH Intact Urine WBC (Auto) Urine Creatinine Salicylates Acetaminophen Crossmatch 04/22/19 04/23/19 04/23/19 18:33 04:06 04:06 WBC 16.1 H RBC 3.36 L Hgb 9.8 L Hct 30.8 L MCV MCHC RDW 17.7 H Plt Count Lymph % (Auto) 9.9 L [place] % (Auto) Lymph # [place] # Eos # Seg Neutrophils % 84.2 H Seg Neuts % (Manual) Lymphocytes % (Manual) Monocytes % (Manual) Nucleated RBC % Seg Neutrophils # 13.6 H Seg Neutrophils # Man Lymphocytes # (Manual) Monocytes # (Manual) PT INR D-Dimer Heparin Anti-Xa Level POC ABG pH ABG pH POC ABG pCO2 POC ABG pO2 ABG pO2 ABG HCO3 ABG O2 Saturation ABG Base Excess ABG Hemoglobin Oxyhemoglobin Sodium Potassium Chloride Carbon Dioxide BUN 59 H Creatinine 3.8 H Glucose POC Glucose 120 H Lactic Acid Calcium 12.3 H* Ionized Calcium Phosphorus 5.70 H Magnesium Iron TIBC Ferritin Total Bilirubin Direct Bilirubin AST ALT Alkaline Phosphatase Total Creatine Kinase CK-MB (CK-2) Troponin T C-Reactive Protein Serum Total Protein Total Protein Albumin 3.2 L Uzdak-9-Xshjjhzxh Takez-5-Bfogdtpux PEP Interpretation Triglycerides LDL Cholesterol Direct HDL Cholesterol Free T4 PTH Intact Urine WBC (Auto) Urine Creatinine Salicylates Acetaminophen Crossmatch 04/23/19 04/24/19 04/24/19 18:06 04:12 04:12 WBC 18.0 H RBC 3.46 L Hgb 9.8 L Hct 31.2 L MCV MCHC 31 L RDW 17.5 H Plt Count Lymph % (Auto) 11.1 L [place] % (Auto) Lymph # [place] # Eos # Seg Neutrophils % 81.9 H Seg Neuts % (Manual) Lymphocytes % (Manual) Monocytes % (Manual) Nucleated RBC % Seg Neutrophils # 14.7 H Seg Neutrophils # Man Lymphocytes # (Manual) Monocytes # (Manual) PT INR D-Dimer Heparin Anti-Xa Level POC ABG pH ABG pH POC ABG pCO2 POC ABG pO2 ABG pO2 ABG HCO3 ABG O2 Saturation ABG Base Excess ABG Hemoglobin Oxyhemoglobin Sodium Potassium Chloride Carbon Dioxide BUN 56 H Creatinine 3.6 H Glucose POC Glucose 124 H Lactic Acid Calcium 12.6 H* Ionized Calcium Phosphorus Magnesium Iron TIBC Ferritin Total Bilirubin Direct Bilirubin AST ALT Alkaline Phosphatase Total Creatine Kinase CK-MB (CK-2) Troponin T C-Reactive Protein Serum Total Protein Total Protein Albumin 3.2 L Mdrkh-4-Dazlhbmea Lpqvt-7-Plsnowvur PEP Interpretation Triglycerides LDL Cholesterol Direct HDL Cholesterol Free T4 PTH Intact Urine WBC (Auto) Urine Creatinine Salicylates Acetaminophen Crossmatch 04/24/19 04/24/19 04/25/19 06:21 11:47 05:58 WBC 18.0 H RBC 2.98 L Hgb 8.3 L Hct 26.5 L MCV MCHC 31 L RDW 17.9 H Plt Count Lymph % (Auto) 10.1 L [place] % (Auto) Lymph # [place] # 0.9 H Eos # Seg Neutrophils % 82.8 H Seg Neuts % (Manual) Lymphocytes % (Manual) Monocytes % (Manual) Nucleated RBC % Seg Neutrophils # 15.0 H Seg Neutrophils # Man Lymphocytes # (Manual) Monocytes # (Manual) PT INR D-Dimer Heparin Anti-Xa Level POC ABG pH ABG pH POC ABG pCO2 POC ABG pO2 ABG pO2 ABG HCO3 ABG O2 Saturation ABG Base Excess ABG Hemoglobin Oxyhemoglobin Sodium Potassium Chloride Carbon Dioxide BUN Creatinine Glucose POC Glucose 132 H 106 H Lactic Acid Calcium Ionized Calcium Phosphorus Magnesium Iron TIBC Ferritin Total Bilirubin Direct Bilirubin AST ALT Alkaline Phosphatase Total Creatine Kinase CK-MB (CK-2) Troponin T C-Reactive Protein Serum Total Protein Total Protein Albumin Ioqbb-6-Jbyokbrvz Bmwbc-3-Izukoosxp PEP Interpretation Triglycerides LDL Cholesterol Direct HDL Cholesterol Free T4 PTH Intact Urine WBC (Auto) Urine Creatinine Salicylates Acetaminophen Crossmatch 04/25/19 04/26/19 04/26/19 05:58 05:57 06:08 WBC RBC Hgb Hct MCV MCHC RDW Plt Count Lymph % (Auto) [place] % (Auto) Lymph # [place] # Eos # Seg Neutrophils % Seg Neuts % (Manual) Lymphocytes % (Manual) Monocytes % (Manual) Nucleated RBC % Seg Neutrophils # Seg Neutrophils # Man Lymphocytes # (Manual) Monocytes # (Manual) PT INR D-Dimer Heparin Anti-Xa Level POC ABG pH ABG pH POC ABG pCO2 POC ABG pO2 ABG pO2 ABG HCO3 ABG O2 Saturation ABG Base Excess ABG Hemoglobin Oxyhemoglobin Sodium Potassium 3.2 L Chloride Carbon Dioxide BUN 52 H 48 H Creatinine 3.2 H 2.9 H Glucose 108 H 112 H POC Glucose 109 H Lactic Acid Calcium 11.4 H 12.5 H* Ionized Calcium Phosphorus 5.90 H Magnesium Iron TIBC Ferritin Total Bilirubin Direct Bilirubin AST ALT Alkaline Phosphatase Total Creatine Kinase CK-MB (CK-2) Troponin T C-Reactive Protein Serum Total Protein Total Protein Albumin 3.0 L Vpmnu-9-Coixlmiet Ngntv-0-Ieztiedid PEP Interpretation Triglycerides LDL Cholesterol Direct HDL Cholesterol Free T4 PTH Intact Urine WBC (Auto) Urine Creatinine Salicylates Acetaminophen Crossmatch 04/26/19 04/26/19 04/27/19 07:22 13:39 05:05 WBC 11.9 H RBC 3.01 L Hgb 8.6 L Hct 26.3 L MCV MCHC RDW 17.6 H Plt Count Lymph % (Auto) 11.9 L [place] % (Auto) Lymph # [place] # Eos # Seg Neutrophils % 78.3 H Seg Neuts % (Manual) Lymphocytes % (Manual) Monocytes % (Manual) Nucleated RBC % Seg Neutrophils # 9.4 H Seg Neutrophils # Man Lymphocytes # (Manual) Monocytes # (Manual) PT INR D-Dimer Heparin Anti-Xa Level POC ABG pH ABG pH POC ABG pCO2 POC ABG pO2 ABG pO2 ABG HCO3 ABG O2 Saturation ABG Base Excess ABG Hemoglobin Oxyhemoglobin Sodium Potassium Chloride Carbon Dioxide BUN 46 H Creatinine 2.8 H Glucose POC Glucose Lactic Acid Calcium > 13.0 H* 12.2 H* Ionized Calcium Phosphorus Magnesium Iron TIBC Ferritin Total Bilirubin Direct Bilirubin AST ALT Alkaline Phosphatase Total Creatine Kinase CK-MB (CK-2) Troponin T C-Reactive Protein Serum Total Protein Total Protein Albumin Gwsoa-0-Vvmzeewbu Tmbxi-9-Vrnmktyio PEP Interpretation Triglycerides LDL Cholesterol Direct HDL Cholesterol Free T4 PTH Intact Urine WBC (Auto) Urine Creatinine Salicylates Acetaminophen Crossmatch 04/27/19 04/28/19 04/29/19 05:05 05:17 14:14 WBC RBC Hgb Hct MCV MCHC RDW Plt Count Lymph % (Auto) [place] % (Auto) Lymph # [place] # Eos # Seg Neutrophils % Seg Neuts % (Manual) Lymphocytes % (Manual) Monocytes % (Manual) Nucleated RBC % Seg Neutrophils # Seg Neutrophils # Man Lymphocytes # (Manual) Monocytes # (Manual) PT INR D-Dimer Heparin Anti-Xa Level POC ABG pH ABG pH POC ABG pCO2 POC ABG pO2 ABG pO2 ABG HCO3 ABG O2 Saturation ABG Base Excess ABG Hemoglobin Oxyhemoglobin Sodium 136 L Potassium 3.2 L 3.4 L Chloride Carbon Dioxide BUN 40 H 34 H 33 H Creatinine 2.5 H 2.0 H 1.9 H Glucose 113 H 107 H POC Glucose Lactic Acid Calcium 12.3 H* 12.1 H* 11.5 H Ionized Calcium Phosphorus Magnesium Iron TIBC Ferritin Total Bilirubin Direct Bilirubin AST ALT Alkaline Phosphatase Total Creatine Kinase CK-MB (CK-2) Troponin T C-Reactive Protein Serum Total Protein Total Protein 6.2 L Albumin 2.8 L Rdxdf-8-Fkdgmegib Mejyq-4-Ehglehgog PEP Interpretation Triglycerides LDL Cholesterol Direct HDL Cholesterol Free T4 PTH Intact Urine WBC (Auto) Urine Creatinine Salicylates Acetaminophen Crossmatch 04/29/19 04/29/19 04/30/19 14:14 14:14 06:47 WBC RBC Hgb Hct MCV MCHC RDW Plt Count Lymph % (Auto) [place] % (Auto) Lymph # [place] # Eos # Seg Neutrophils % Seg Neuts % (Manual) Lymphocytes % (Manual) Monocytes % (Manual) Nucleated RBC % Seg Neutrophils # Seg Neutrophils # Man Lymphocytes # (Manual) Monocytes # (Manual) PT INR D-Dimer Heparin Anti-Xa Level POC ABG pH ABG pH POC ABG pCO2 POC ABG pO2 ABG pO2 ABG HCO3 ABG O2 Saturation ABG Base Excess ABG Hemoglobin Oxyhemoglobin Sodium Potassium 3.2 L Chloride Carbon Dioxide 21 L BUN 26 H Creatinine 1.8 H Glucose POC Glucose Lactic Acid Calcium 10.8 H Ionized Calcium 7.2 H* Phosphorus Magnesium Iron TIBC Ferritin Total Bilirubin Direct Bilirubin AST ALT Alkaline Phosphatase Total Creatine Kinase CK-MB (CK-2) Troponin T C-Reactive Protein Serum Total Protein Total Protein Albumin Xrekg-8-Vdjtkarxu Rdfep-0-Ibnkyssjs PEP Interpretation Triglycerides LDL Cholesterol Direct HDL Cholesterol Free T4 PTH Intact 8.83 L Urine WBC (Auto) Urine Creatinine Salicylates Acetaminophen Crossmatch 04/30/19 05/01/19 05/01/19 12:17 06:52 06:52 WBC 15.4 H RBC 3.01 L Hgb 8.4 L Hct 26.2 L MCV MCHC RDW 17.0 H Plt Count Lymph % (Auto) 8.4 L [place] % (Auto) 8.9 H Lymph # [place] # 1.4 H Eos # 0.5 H Seg Neutrophils % 78.7 H Seg Neuts % (Manual) Lymphocytes % (Manual) Monocytes % (Manual) Nucleated RBC % Seg Neutrophils # 12.1 H Seg Neutrophils # Man Lymphocytes # (Manual) Monocytes # (Manual) PT INR D-Dimer Heparin Anti-Xa Level POC ABG pH ABG pH POC ABG pCO2 POC ABG pO2 ABG pO2 ABG HCO3 ABG O2 Saturation ABG Base Excess ABG Hemoglobin Oxyhemoglobin Sodium Potassium 3.0 L Chloride Carbon Dioxide BUN 22 H Creatinine Glucose POC Glucose 106 H Lactic Acid Calcium 11.2 H Ionized Calcium Phosphorus Magnesium Iron TIBC Ferritin Total Bilirubin Direct Bilirubin AST ALT Alkaline Phosphatase Total Creatine Kinase CK-MB (CK-2) Troponin T C-Reactive Protein Serum Total Protein Total Protein Albumin 3.0 L Miawq-8-Gxbufitgm Igwew-6-Iohxxkuns PEP Interpretation Triglycerides LDL Cholesterol Direct HDL Cholesterol Free T4 PTH Intact Urine WBC (Auto) Urine Creatinine Salicylates Acetaminophen Crossmatch 05/01/19 05/01/19 05/02/19 06:52 18:40 05:32 WBC RBC Hgb Hct MCV MCHC RDW Plt Count Lymph % (Auto) [place] % (Auto) Lymph # [place] # Eos # Seg Neutrophils % Seg Neuts % (Manual) Lymphocytes % (Manual) Monocytes % (Manual) Nucleated RBC % Seg Neutrophils # Seg Neutrophils # Man Lymphocytes # (Manual) Monocytes # (Manual) PT INR D-Dimer Heparin Anti-Xa Level POC ABG pH ABG pH POC ABG pCO2 POC ABG pO2 ABG pO2 ABG HCO3 ABG O2 Saturation ABG Base Excess ABG Hemoglobin Oxyhemoglobin Sodium Potassium Chloride Carbon Dioxide BUN Creatinine Glucose POC Glucose 169 H 109 H Lactic Acid Calcium Ionized Calcium Phosphorus Magnesium Iron TIBC Ferritin Total Bilirubin Direct Bilirubin AST ALT Alkaline Phosphatase Total Creatine Kinase CK-MB (CK-2) Troponin T C-Reactive Protein Serum Total Protein 5.7 L Total Protein Albumin 2.5 L Fpvze-8-Yrjrbqnoh 0.5 H Zchjv-3-Ircaawlwb PEP Interpretation see below H Triglycerides LDL Cholesterol Direct HDL Cholesterol Free T4 PTH Intact Urine WBC (Auto) Urine Creatinine Salicylates Acetaminophen Crossmatch 05/02/19 05/02/19 05/02/19 05:57 05:57 11:43 WBC 14.2 H RBC 2.96 L Hgb 8.3 L Hct 26.0 L MCV MCHC RDW 16.8 H Plt Count Lymph % (Auto) [place] % (Auto) Lymph # [place] # Eos # Seg Neutrophils % Seg Neuts % (Manual) Lymphocytes % (Manual) Monocytes % (Manual) Nucleated RBC % Seg Neutrophils # Seg Neutrophils # Man Lymphocytes # (Manual) Monocytes # (Manual) PT INR D-Dimer Heparin Anti-Xa Level POC ABG pH ABG pH POC ABG pCO2 POC ABG pO2 ABG pO2 ABG HCO3 ABG O2 Saturation ABG Base Excess ABG Hemoglobin Oxyhemoglobin Sodium 136 L Potassium 3.5 L Chloride Carbon Dioxide BUN 21 H Creatinine Glucose POC Glucose 108 H Lactic Acid Calcium 11.1 H Ionized Calcium Phosphorus Magnesium Iron TIBC Ferritin Total Bilirubin Direct Bilirubin AST ALT Alkaline Phosphatase Total Creatine Kinase CK-MB (CK-2) Troponin T C-Reactive Protein Serum Total Protein Total Protein Albumin Rwsdk-2-Jbrmxiyzp Zcvev-5-Zfhzjoojb PEP Interpretation Triglycerides LDL Cholesterol Direct HDL Cholesterol Free T4 PTH Intact Urine WBC (Auto) Urine Creatinine Salicylates Acetaminophen Crossmatch 05/03/19 05/03/19 05:37 05:37 WBC 12.7 H RBC 3.01 L Hgb 8.3 L Hct 26.1 L MCV MCHC RDW 16.9 H Plt Count Lymph % (Auto) [place] % (Auto) Lymph # [place] # Eos # Seg Neutrophils % Seg Neuts % (Manual) Lymphocytes % (Manual) Monocytes % (Manual) Nucleated RBC % Seg Neutrophils # Seg Neutrophils # Man Lymphocytes # (Manual) Monocytes # (Manual) PT INR D-Dimer Heparin Anti-Xa Level POC ABG pH ABG pH POC ABG pCO2 POC ABG pO2 ABG pO2 ABG HCO3 ABG O2 Saturation ABG Base Excess ABG Hemoglobin Oxyhemoglobin Sodium 135 L Potassium 3.3 L Chloride Carbon Dioxide BUN Creatinine Glucose POC Glucose Lactic Acid Calcium 10.9 H Ionized Calcium Phosphorus Magnesium 1.50 L Iron TIBC Ferritin Total Bilirubin Direct Bilirubin AST ALT Alkaline Phosphatase Total Creatine Kinase CK-MB (CK-2) Troponin T C-Reactive Protein Serum Total Protein Total Protein Albumin Jfmtr-6-Rumvwoefj Kxmek-5-Ndvggdgob PEP Interpretation Triglycerides LDL Cholesterol Direct HDL Cholesterol Free T4 PTH Intact Urine WBC (Auto) Urine Creatinine Salicylates Acetaminophen Crossmatch Allied health notes reviewed: nursing
--- NOTE | 2019-05-03 18:44 | Treadmill Report ---
NUCLEAR CARDIAC IMAGING INDICATION FOR PROCEDURE: Status post cardiac arrest, congestive heart failure. Informed consent was obtained. Vasodilator stress was achieved with the intravenous administration of 0.4 mg of Lexiscan per protocol. Rest and stress nuclear cardiac imaging was performed following the intravenous administration of technetium-99m Myoview per protocol. Gated SPECT imaging demonstrates a left ventricular ejection fraction post-stress of 44%. The left ventricle is diffusely hypokinetic. Myocardial perfusion imaging demonstrates no significant cavity change between stress and rest. There is a small mild to moderately intense reversible anterior perfusion defect as well as a small moderately intense reversible lateral wall perfusion abnormality. Nuclear cardiac imaging demonstrates mild left ventricular systolic dysfunction with evidence of ischemia in the distribution of the left anterior descending coronary artery and in the circumflex coronary artery as well. No evidence of prior myocardial necrosis. [facility]# [id number] SANDRA/DEREK
[2019-05-03] MEDS: MELATONIN 5 MG TAB PO PRN (22:27)
[2019-05-04] MEDS: SODIUM CHLORIDE 0.9% 1000 ML 1,000 ML IV SCH ×3 (02:03→22:50)
[2019-05-04 07:49] LABS: Basophils # (Auto) 0.1 K/mm3 (0.0-0.1); Basophils % (Auto) 1.3 % (0.0-1.8); Eosinophils # (Auto) 0.5 K/mm3 (0.0-0.4); Eosinophils % (Auto) 4.9 % (0.0-4.3); Hematocrit 26.6 % (35.5-45.6); Hemoglobin 8.6 gm/dl (11.8-15.2); Lymphocytes # (Auto) 1.7 K/mm3 (1.2-5.4); Lymphocytes % (Auto) 14.9 % (13.4-35.0); Mean Corpuscular HGB Conc 32 % (32-34); Mean Corpuscular Volume 87 fl (84-94); Platelet Count 354 K/mm3 (140-440); Red Blood Count 3.07 M/mm3 (3.65-5.03); Red Cell Distribution Width 17.3 % (13.2-15.2)
[2019-05-04 07:50] LABS: INR 1.24 (0.87-1.13)
[2019-05-04] MEDS ORDERED: SODIUM CHLORIDE 0.9% 1000 ML 1,000 ML ONE (07:57)
[2019-05-04] MEDS ORDERED: VERAPAMIL 5 MG/2 ML INJ ONE (08:43)
[2019-05-04] MEDS ORDERED: HEPARIN 10,000 UNITS/10 ML VIAL ONE (08:43)
[2019-05-04] MEDS ORDERED: LIDOCAINE (2%) 20 MG/1 ML VIAL 20 ML MDV INFILTRATI ONE (08:43)
[2019-05-04] MEDS ORDERED: HEPARIN/NS 5000 UNIT/500ML 500 ML IR ONE (08:43)
[2019-05-04] MEDS ORDERED: SODIUM CHLORIDE 0.9% 500 ML 0 ML ONE (08:45)
[2019-05-04] MEDS ORDERED: NITROGLYCERIN SYRINGE 0 ML ONE (08:45)
[2019-05-04 08:49] LABS: Calcium 10.7 mg/dL (8.4-10.2)
--- NOTE | 2019-05-04 09:54 | Progress Note ---
Assessment and Plan 1. Acute kidney injury: Vasomotor RUBEN in the setting of shock / volume depletion / Rhabdo. Baseline renal function is unknown. CT abdomen was negative for obstructive nephropathy. Patient was started on hemodialysis on 03/18/19 due to worsening metabolic acidosis and hyperkalemia. Hemodialysis: 03/18, 03/19, 03/20, 03/22, 03/23, 03/24, 03/26, 03/28, 03/29, 03/31, 04/02, 04/04, 04/06, 04/09, 04/11, 04/13, 04/18, 04/20. Monitor for [employer] needs. Renal function is better. Monitor renal function. Avoid nephrotoxic agents. Meds dosage based on GFR. 2. FEN: Hypercalcemia, multifactorial etiology. Contributing factor includes immobilization. Patient previously received high dose Vitamin D and activated Vit.D for hypocalcemia. Ionized Calcium was high. PTH and 25-OH Vit.D level was low. S/p Pamidronate on 04/26 and Calcitonin. Calcium level is improving. Monitor lytes. 3. Septic shock: Currently off pressors. Fever resolved. Per ID recommendation the dialysis catheter was removed on 04/20. 4. Suspected CAD: Lexiscan MPI stress test done 05/03 showed small mild to moderate reversible anterior and lateral perfusion defect, EF 44%. Coronary angiography planned for definitive diagnosis. On IV fluids. 5. A.fib with RVR: On Amiodarone and Metoprolol. 6. Respiratory failure: Extubated. 7. Severe anemia: S/p PRBC and Epogen. 8. Elevated transaminases: Improved. 9. Encephalopathy: Improved. Examination: General appearance: well-developed, appears stated age, obese, not in distress HEENT: Atraumatic EYES: Pupils reacting to light Neck: supple Respiratory: ctab Cardiology: regular, S1S2 heard, no murmur Gastrointestinal: obese, BS heard, not tender Integumentary: no rash noted Neurologic: alert, follows command, conversing, oriented Ext: L UE edema is better Skin: L elbow area wound Hemodialysis access: None Subjective Date of service: 05/04/19 Principal diagnosis: anemia - DVT rt IJ Interval history: Patient was seen and examined at the bedside. Doing ok. Objective - Vital Signs Vital signs: Vital Signs - 12hr 05/03/19 05/03/19 05/04/19 22:27 23:27 00:57 Temperature 98.7 F Pulse Rate 75 Respiratory 18 18 18 Rate Blood Pressure 123/74 O2 Sat by Pulse 94 Oximetry 05/04/19 05:45 Temperature 98.6 F Pulse Rate 80 Respiratory 20 Rate Blood Pressure 131/86 O2 Sat by Pulse 94 Oximetry - Lab 05/04/19 06:49 05/04/19 06:49 Most recent lab results ABG pH 7.388 pH Units (7.350-7.450) 04/06/19 05:20 ABG pCO2 38.5 mm Hg 04/06/19 05:20 ABG pO2 104.0 mm Hg (80.0-90.0) H 04/06/19 05:20 ABG HCO3 22.6 mmol/L (20.0-26.0) 04/06/19 05:20 ABG O2 Saturation 97.8 % (95.0-99.0) 04/06/19 05:20 Calcium 10.7 mg/dL (8.4-10.2) H 05/04/19 06:49 Phosphorus 2.80 mg/dL (2.5-4.5) 05/03/19 05:37 Magnesium 2.20 mg/dL (1.7-2.3) 05/04/19 06:49 Urine Creatinine 106.6 mg/dL (0.1-20.0) H 03/17/19 16:05 Urine Sodium 95 mmol/L 03/17/19 16:05 Medications & Allergies - Medications Allergies/Adverse Reactions: Allergies No Known Allergies Allergy (Unverified 03/16/19 17:17) Home Medications: Home Medications Medication Instructions Recorded Confirmed Last Taken Type No Known Home Medications [No 04/28/19 04/28/19 Unknown History Reported Home Medications] Active Medications: Generic Name Dose Route Start Last Admin Trade Name Freq PRN Reason Stop Dose Admin Acetaminophen 650 mg 04/02/19 23:26 04/30/19 11:16 Tylenol PO 650 mg Q4H PRN Administration Pain, Mild (1-3),temp>100.5 Acetaminophen/Hydrocodone Bitart 1 each 05/02/19 11:50 05/03/19 22:27 [place] 5/325 PO 1 each Q6H PRN Administration Pain, Moderate (4-6) Al Hydrox/Mg Hydrox/Simethicone 15 ml 04/30/19 15:15 04/30/19 15:53 Alum-Mag Hydrox-Simeth 863-065-21cs/5ml PO 15 ml Q4H PRN Administration Indigestion Albuterol 2.5 mg 03/29/19 13:08 Proventil IH Q4HRT PRN Shortness Of Breath Amiodarone HCl 200 mg 05/04/19 10:00 Cordarone PO DAILY PAOLO Lipase/Protease/Amylase 1 each 04/20/19 13:17 Pancrekarly [place] 10,500 Unit FEEDTUBE PRN PRN For Clogged Feeding Tube Bacitracin 1 applic 04/17/19 08:00 Antibiotic Oint TP Q4H PRN upper lip sore/open Dextrose 50 gm 04/17/19 08:00 D50w (25gm) Vial IV Q1H PRN Hypoglycemia Hydralazine HCl 20 mg 04/14/19 03:00 04/14/19 03:11 Apresoline IV 20 mg Q4H PRN Administration hypertemsion Hydrophilic Ointment 1 applic 03/16/19 15:50 04/19/19 18:24 Vaseline Lip Therapy TP 1 applic Q2HR PRN Administration Dry Lips Sodium Chloride 100 mls @ 999 mls/hr 04/20/19 08:41 Nacl 0.9% IV NEYMAR PRN Hypotension Sodium Chloride 1,000 mls @ 70 mls/hr 05/04/19 00:00 05/04/19 08:02 Nacl 0.9% 1000 Ml IV 70 mls/hr DIRECT PAOLO Administration Lansoprazole 30 mg 04/11/19 10:00 05/03/19 21:00 Prevacid Solutab FEEDTUBE 30 mg BID PAOLO Administration Melatonin 5 mg 04/26/19 21:00 05/03/19 22:27 Melatonin PO 5 mg QHS PRN Administration Sleep Metoprolol Tartrate 25 mg 04/17/19 20:00 05/03/19 20:15 Lopressor PO 25 mg TID PAOLO Administration Multi-Ingred Cream/Lotion/Oil/Oint 1 applic 03/16/19 15:50 03/19/19 20:10 Artificial Tears Ophth Oint OU 1 applic Q4HR PRN Administration Dry Eye(s) Simple Syrup 15 ml 04/20/19 13:17 Simple Syrup FEEDTUBE PRN PRN Hypoglycemia Simple Syrup 30 ml 04/20/19 13:29 05/01/19 17:57 Simple Syrup FEEDTUBE 30 ml PRN PRN Administration Hypoglycemia Sodium Bicarbonate 325 mg 04/20/19 13:17 04/27/19 11:03 Sodium Bicarbonate FEEDTUBE 325 mg PRN PRN Administration For Clogged Feeding Tube Sodium Hypochlorite 1 applic 04/18/19 11:00 05/03/19 21:00 Dakin's Half Strength TP 1 applicatio BID PAOLO Administration
[2019-05-04] MEDS: HYDROcodone/ACETAMINOPHEN 5-325 MG TAB PO PRN ×3 (10:40→23:58)
[2019-05-04] MEDS: AMIODARONE 200 MG TAB PO SCH (10:41)
[2019-05-04] MEDS: LANSOPRAZOLE 30 MG SOLUTAB FEEDTUBE SCH ×2 (10:41→22:29)
[2019-05-04] MEDS: METOPROLOL TARTRATE 25 MG TAB PO SCH ×3 (10:42→22:30)
--- NOTE | 2019-05-04 14:19 | Progress Note ---
Assessment and Plan S/p lexiscan MPI stress test yesterday which was abnormal - showed small mild to moderate reversible anterior and lateral perfusion defect, EF 44%. Pt was brought down for LHC today but has declined LHC at this time. Per Dr. Moreno, LHC today would be for diagnostic purposes only as recent GI bleed and current anemia precludes usage of DAPT. Pt states he would rather avoid multiple LHC's and would be agreeable for LHC in the future if intervention at the same time was also possible. In order to consider intervention and initiation of DAPT or systemic AC, we would require GI recommendations regarding resumption of these agents. D/w Dr. Fox who will speak with GI team and request these recommendations from GI team. Additionally, pt was noted to have monomorphic and polymorphic VT shortly after admission. Will consult EP for possible AICD implantation. We have d/w Dr. Rubalcava. The patient has been seen in conjunction with Dr. Echavarria who agrees with the assessment and plan of care. - Patient Problems (1) Cardiopulmonary arrest Current Visit: Yes Status: Acute (2) Acute respiratory failure Current Visit: Yes Status: Acute Qualifiers: Respiratory failure complication: hypoxia Qualified Code(s): J96.01 - Acute respiratory failure with hypoxia (3) Paroxysmal atrial fibrillation with RVR Current Visit: Yes Status: Acute (4) SVT (supraventricular tachycardia) Current Visit: Yes Status: Acute (5) Torsades de pointes Current Visit: Yes Status: Acute (6) Ventricular tachycardia Current Visit: Yes Status: Acute (7) Encephalopathy Current Visit: Yes Status: Acute (8) Septic shock Current Visit: Yes Status: Acute (9) Aspiration pneumonia Current Visit: Yes Status: Acute Qualifiers: Aspiration pneumonia type: unspecified (10) Meningitis Current Visit: Yes Status: Suspected (11) Cellulitis Current Visit: Yes Status: Acute (12) Acute renal failure Current Visit: Yes Status: Acute Qualifiers: Acute renal failure type: with acute tubular necrosis Qualified Code(s): N17.0 - Acute kidney failure with tubular necrosis (13) GI bleed Current Visit: Yes Status: Acute (14) Anemia Current Visit: Yes Status: Acute (15) Thrombocytopenia Current Visit: Yes Status: Resolved (16) DVT (deep venous thrombosis) Current Visit: Yes Status: Acute Subjective Date of service: 05/04/19 Principal diagnosis: anemia - DVT rt IJ Interval history: no current complaints. in SR. Objective Last Vital Signs Temp 97.1 F L 05/04/19 11:47 Pulse 82 05/04/19 11:47 Resp 20 05/04/19 11:47 BP 118/74 05/04/19 11:47 Pulse Ox 94 05/04/19 11:47 - Physical Examination General: No Apparent Distress HEENT: Positive: PERRL, EOMI, Normocephaly, Mucus Membranes Moist Neck: Positive: neck supple, trachea midline Cardiac: Positive: Reg Rate and Rhythm, S1/S2 Lungs: Positive: Decreased Breath Sounds Neuro: Positive: Grossly Intact, Other Abdomen: Positive: Soft, Active Bowel Sounds. Negative: Tender /Rectal: Other (deferred) Skin: Positive: Clear. Negative: Rash Musculoskeletal: Normal Range of Motion, other (LUE swollen ) Extremities: Present: +3 Edema (LUE). Absent: edema - Labs and Meds Coagulation 05/04/19 Range/Units 06:49 PT 15.5 H (12.2-14.9) Sec. INR 1.24 H (0.87-1.13) CBC 05/04/19 Range/Units 06:49 WBC 11.1 H (4.5-11.0) K/mm3 RBC 3.07 L (3.65-5.03) M/mm3 Hgb 8.6 L (11.8-15.2) gm/dl Hct 26.6 L (35.5-45.6) % Plt Count 354 (140-440) K/mm3 Lymph # 1.7 (1.2-5.4) K/mm3 [place] # 1.0 H (0.0-0.8) K/mm3 Eos # 0.5 H (0.0-0.4) K/mm3 Baso # 0.1 (0.0-0.1) K/mm3 Comprehensive Metabolic Panel 05/04/19 Range/Units 06:49 Sodium 137 (137-145) mmol/L Potassium 4.0 D (3.6-5.0) mmol/L Chloride 103.2 (98-107) mmol/L Carbon Dioxide 19 L (22-30) mmol/L BUN 19 (9-20) mg/dL Creatinine 1.3 (0.8-1.5) mg/dL Glucose 87 (75-100) mg/dL Calcium 10.7 H (8.4-10.2) mg/dL - Imaging and Cardiology Echo: report reviewed ( EF 40-45%, impaired relaxation. ) - EKG Sinus rhythms and dysrhythmias: sinus rhythm - Allied health notes Allied health notes reviewed: nursing
--- NOTE | 2019-05-04 14:24 | Progress Note ---
Assessment and Plan Assessment and plan: Patient is a 43-year-old man with history of GERD, obesity and mental illness, who presented to [facility] ED on 03/16/2019 with altered mental status. He is visiting from [place] and was brought in by his friend. As per records per family he has been homeless [address] [place]. When he came to the ER, he was unable to speak or follow commands, in the ER he was found to have SVT with heart rate in the 250s. The patient was shocked and medicated. Also was confused, and had trouble protecting his airway; therefore, he was then intubated. He has had a prolonged hospital course. During this hospital course, he was found to have sepsis with septic shock, acute resp failure, rhabdomyolysis, RUBEN, and multisystem organ failure, toxic metabolic encephalopathy. He was started on hemodialysis, now off since 04/20/19. He is much improved. Stress test done 05/03/19 was abnormal. cardiac cath was planned for today, 05/04 but he declined. Acute hypoxic respiratory failure. Was intubated, now extubated. Now on Room air. Continue BiPAP as clinically indicated. Right upper ext DVT: Unfortunately patient with clot adherent ulcer on EGD, Unable to irrigate out. H/H relatively stable and plt improved. Will recommend elevating upper ext. SVT with Polymorphic Vtach/Atrial fibrillation. Continue Metoprolol. Cardiology following. No systemic AC regarding AFib in setting of anemia, thrombocytopenia, GI bleed. Stress test 05/03/19 was abnormal Was for cardiac cath today but declined Acute blood loss anemia. Patient with GI bleed secondary to peptic ulcer disease. EGD completed per GI. Continue PRBCs as needed. GI bleed/peptic ulcer disease. Continue PPI. Transfuse PRBCs as needed. Sepsis/septic shock. Completed Antoibiotics Right Axillary cellulitis/Suspect Aspiration pneumonia/Acute Cystitis: Antibiotics stopped. Fever, recurrent- Improved ID following Severe Metabolic Acidosis- Resolved Hypercalcemia: Slight improvement. Continue to monitor- give fluids and lasix, recalled Log Deck Tender Multi-Organ failure/ Ischemic hepatitis/shock liver. Elevated LFTs improved. Viral hepatitis panel negative Acute Kidney Failure secondary to ATN ANURIC. Patient off hemodialysis. Patient was started on hemodialysis on 03/18/19 due to worsening metabolic acidosis and hyperkalemia. Last dialysis on 04/20. Baseline renal function is unknown. CT abdomen was negative for obstructive nephropathy. Avoid nephrotoxic agents. Continue hemodialysis per nephrology. Toxic metabolic encephalopathy. Brain MRI showed no acute intracranial ab normality, mild nonspecific chronic white matter changes, fluid throughout the sinuses and mastoid air cells. Swelling both upper ext L>R Doppler US : no DVT LUE Repeat doppler Continue wound care Patient recieved fluids, will give calcium Left AC wound- Dressing in place, wound care following and proscribing management Hypokalemia. Corrected. Replete potassium as needed. Hypernatremia. Follow-up BMP, Nephrology following Now resolved Thrombocytopenia, Presume DIC. Etiology likely secondary to sepsis. Resolved. Rhabdomyolysis. CK normalized. Full code status Continue aggressive PT. Pysch input is noted Awaiting placement History Interval history: Feels better Had stress test yesterday 05/03, abnormal Went down for cardiac cath today but declined Hospitalist Physical - Physical exam Narrative exam: Gen: Not in acute distress, lying in bed, morbidly obese HEENT: Normocephalic, atraumatic, NG tube Neck: supple, no JVD Heart: S1 and S2 irreg, no murmurs, rubs or gallop Lungs: Clear to auscultation, no rhonchi, no wheeze Abd: soft, non tender, non distended, normal BS, Ext: bilateral upper ext edema, L>R, no clubbing, no cyanosis, dressing over left elbow,eschar anterior left elbow Neuro: Awake, alert,oriented, moves all ext - Constitutional Vitals: Temp Pulse Resp BP Pulse Ox 97.1 F L 82 20 118/74 94 05/04/19 11:47 05/04/19 11:47 05/04/19 11:47 05/04/19 11:47 05/04/19 11:47 General appearance: Present: obese Results - Labs CBC & Chem 7: 05/04/19 06:49 05/04/19 06:49 Labs: Laboratory Last Values WBC 11.1 K/mm3 (4.5-11.0) H 05/04/19 06:49 RBC 3.07 M/mm3 (3.65-5.03) L 05/04/19 06:49 Hgb 8.6 gm/dl (11.8-15.2) L 05/04/19 06:49 Hct 26.6 % (35.5-45.6) L 05/04/19 06:49 MCV 87 fl (84-94) 05/04/19 06:49 MCH 28 pg (28-32) 05/04/19 06:49 MCHC 32 % (32-34) 05/04/19 06:49 RDW 17.3 % (13.2-15.2) H 05/04/19 06:49 Plt Count 354 K/mm3 (140-440) 05/04/19 06:49 Lymph % (Auto) 14.9 % (13.4-35.0) 05/04/19 06:49 Blanco % (Auto) 9.0 % (0.0-7.3) H 05/04/19 06:49 Eos % (Auto) 4.9 % (0.0-4.3) H 05/04/19 06:49 Baso % (Auto) 1.3 % (0.0-1.8) 05/04/19 06:49 Lymph # 1.7 K/mm3 (1.2-5.4) 05/04/19 06:49 Blanco # 1.0 K/mm3 (0.0-0.8) H 05/04/19 06:49 Eos # 0.5 K/mm3 (0.0-0.4) H 05/04/19 06:49 Baso # 0.1 K/mm3 (0.0-0.1) 05/04/19 06:49 Add Manual Diff Complete 04/11/19 04:16 Total Counted 100 04/11/19 04:16 Seg Neutrophils % 69.9 % (40.0-70.0) 05/04/19 06:49 Seg Neuts % (Manual) 71.0 % (40.0-70.0) H 04/11/19 04:16 Band Neutrophils % 1.0 % 04/11/19 04:16 Lymphocytes % (Manual) 17.0 % (13.4-35.0) 04/11/19 04:16 Reactive Lymphs % (Man) 0 % 04/11/19 04:16 Monocytes % (Manual) 8.0 % (0.0-7.3) H 04/11/19 04:16 Eosinophils % (Manual) 2.0 % (0.0-4.3) 04/11/19 04:16 Basophils % (Manual) 1.0 % (0.0-1.8) 04/11/19 04:16 Metamyelocytes % 0 % 04/11/19 04:16 Myelocytes % 0 % 04/11/19 04:16 Promyelocytes % 0 % 04/11/19 04:16 Blast Cells % 0 % 04/11/19 04:16 Nucleated RBC % Not Reportable 04/11/19 04:16 Seg Neutrophils # 7.8 K/mm3 (1.8-7.7) H 05/04/19 06:49 Seg Neutrophils # Man 8.2 K/mm3 (1.8-7.7) H 04/11/19 04:16 Band Neutrophils # 0.1 K/mm3 04/11/19 04:16 Lymphocytes # (Manual) 2.0 K/mm3 (1.2-5.4) 04/11/19 04:16 Abs React Lymphs (Man) 0.0 K/mm3 04/11/19 04:16 Monocytes # (Manual) 0.9 K/mm3 (0.0-0.8) H 04/11/19 04:16 Eosinophils # (Manual) 0.2 K/mm3 (0.0-0.4) 04/11/19 04:16 Basophils # (Manual) 0.1 K/mm3 (0.0-0.1) 04/11/19 04:16 Metamyelocytes # 0.0 K/mm3 04/11/19 04:16 Myelocytes # 0.0 K/mm3 04/11/19 04:16 Promyelocytes # 0.0 K/mm3 04/11/19 04:16 Blast Cells # 0.0 K/mm3 04/11/19 04:16 WBC Morphology Not Reportable 04/11/19 04:16 Hypersegmented Neuts Not Reportable 04/11/19 04:16 Hyposegmented Neuts Not Reportable 04/11/19 04:16 Hypogranular Neuts Not Reportable 04/11/19 04:16 Smudge Cells Not Reportable 04/11/19 04:16 Toxic Granulation Not Reportable 04/11/19 04:16 Toxic Vacuolation Not Reportable 04/11/19 04:16 Dohle Bodies Not Reportable 04/11/19 04:16 Pelger-Huet Anomaly Not Reportable 04/11/19 04:16 Joyce Rods Not Reportable 04/11/19 04:16 Platelet Estimate Consistent w auto 04/11/19 04:16 Clumped Platelets Not Reportable 04/11/19 04:16 Plt Clumps, EDTA Not Reportable 04/11/19 04:16 Large Platelets Not Reportable 04/11/19 04:16 Giant Platelets Not Reportable 04/11/19 04:16 Platelet Satelliting Not Reportable 04/11/19 04:16 Plt Morphology Comment Not Reportable 04/11/19 04:16 RBC Morphology Not Reportable 04/11/19 04:16 Dimorphic RBCs Not Reportable 04/11/19 04:16 Polychromasia Not Reportable 04/11/19 04:16 Hypochromasia Not Reportable 04/11/19 04:16 Poikilocytosis Not Reportable 04/11/19 04:16 Anisocytosis Rare 04/11/19 04:16 Microcytosis Rare 04/11/19 04:16 Macrocytosis Not Reportable 04/11/19 04:16 Spherocytes Not Reportable 04/11/19 04:16 Pappenheimer Bodies Not Reportable 04/11/19 04:16 Sickle Cells Not Reportable 04/11/19 04:16 Target Cells Not Reportable 04/11/19 04:16 Tear Drop Cells Not Reportable 04/11/19 04:16 Ovalocytes Not Reportable 04/11/19 04:16 Stomatocytes Few 03/26/19 Unknown Helmet Cells Not Reportable 04/11/19 04:16 Hsrestha-Riggins Bodies Not Reportable 04/11/19 04:16 Vantage Rings Not Reportable 04/11/19 04:16 Samantha Cells Not Reportable 04/11/19 04:16 Bite Cells Not Reportable 04/11/19 04:16 Crenated Cell Not Reportable 04/11/19 04:16 Elliptocytes Not Reportable 04/11/19 04:16 Acanthocytes (Spur) Not Reportable 04/11/19 04:16 Rouleaux Not Reportable 04/11/19 04:16 Hemoglobin C Crystals Not Reportable 04/11/19 04:16 Schistocytes Not Reportable 04/11/19 04:16 Malaria parasites Not Reportable 04/11/19 04:16 Phil Bodies Not Reportable 04/11/19 04:16 Hem Pathologist Commnt No 04/11/19 04:16 PT 15.5 Sec. (12.2-14.9) H 05/04/19 06:49 INR 1.24 (0.87-1.13) H 05/04/19 06:49 APTT 26.6 Sec. (24.2-36.6) 03/28/19 12:00 Fibrinogen 226 mg/dl (211-480) 03/28/19 12:00 D-Dimer 4845.98 ng/mlDDU (0-234) H 03/28/19 12:00 Heparin Anti-Xa Level 0.23 U.I./ml (0.3-0.7) L 03/28/19 05:13 POC ABG pH 7.401 (7.35-7.45) 04/07/19 12:57 ABG pH 7.388 pH Units (7.350-7.450) 04/06/19 05:20 POC ABG pCO2 41.5 (35-45) 04/07/19 12:57 ABG pCO2 38.5 mm Hg 04/06/19 05:20 POC ABG pO2 107 (80-105) H 04/07/19 12:57 ABG pO2 104.0 mm Hg (80.0-90.0) H 04/06/19 05:20 POC ABG HCO3 25.7 (22-26 mml/L) 04/07/19 12:57 ABG HCO3 22.6 mmol/L (20.0-26.0) 04/06/19 05:20 POC ABG Total CO2 27 (23-27mmol/L) 04/07/19 12:57 POC ABG O2 Sat 98 04/07/19 12:57 ABG O2 Saturation 97.8 % (95.0-99.0) 04/06/19 05:20 ABG O2 Content 10.0 (0.0-44) 04/06/19 05:20 POC ABG Base Excess 1 ((-2) - (+3)mmol/L) 04/07/19 12:57 ABG Base Excess -2.1 mmol/L (-2.0-3.0) L 04/06/19 05:20 ABG Hemoglobin 7.3 gm/dl (14.0-18.0) L 04/06/19 05:20 ABG Carboxyhemoglobin 1.7 % (0.0-5.0) 04/06/19 05:20 ABG Methemoglobin 0.6 % (0.0-1.5) 04/06/19 05:20 Oxyhemoglobin 95.5 % (95.0-99.0) 04/06/19 05:20 FiO2 30 % 04/07/19 12:57 Sodium 137 mmol/L (137-145) 05/04/19 06:49 Potassium 4.0 mmol/L (3.6-5.0) D 05/04/19 06:49 Chloride 103.2 mmol/L (98-107) 05/04/19 06:49 Carbon Dioxide 19 mmol/L (22-30) L 05/04/19 06:49 Anion Gap 19 mmol/L 05/04/19 06:49 BUN 19 mg/dL (9-20) 05/04/19 06:49 Creatinine 1.3 mg/dL (0.8-1.5) 05/04/19 06:49 Estimated GFR 60 ml/min 05/04/19 06:49 BUN/Creatinine Ratio 15 % 05/04/19 06:49 Glucose 87 mg/dL (75-100) 05/04/19 06:49 POC Glucose 111 (70-105) H 05/04/19 11:58 Lactic Acid 1.90 mmol/L (0.7-2.0) 03/21/19 21:31 Calcium 10.7 mg/dL (8.4-10.2) H 05/04/19 06:49 Ionized Calcium 7.2 mg/dL (4.8-5.6) H* 04/29/19 14:14 Phosphorus 2.80 mg/dL (2.5-4.5) 05/03/19 05:37 Magnesium 2.20 mg/dL (1.7-2.3) 05/04/19 06:49 Iron 26 ug/dL (49-181) L 04/02/19 05:03 TIBC 138 mcg/dL (250-450) L 04/02/19 05:03 Ferritin 607.0 ng/mL (13.0-400.0) H 04/02/19 05:03 Total Bilirubin 0.50 mg/dL (0.1-1.2) 05/01/19 06:52 Direct Bilirubin 0.4 mg/dL (0-0.2) H 03/31/19 08:20 Indirect Bilirubin 0.1 mg/dL 03/31/19 08:20 AST 11 units/L (5-40) 05/01/19 06:52 ALT 7 units/L (7-56) 05/01/19 06:52 Alkaline Phosphatase 54 units/L (35-129) 05/01/19 06:52 Total Creatine Kinase 62 units/L (55-170) 04/07/19 05:40 CK-MB (CK-2) 54.3 ng/mL (0.0-4.0) H 03/17/19 07:16 CK-MB (CK-2) Rel Index 0.0 (0-4) 03/17/19 07:16 Troponin T 0.058 ng/mL (0.00-0.029) H 03/17/19 07:16 C-Reactive Protein 7.10 mg/dL (0.00-1.30) H 04/17/19 04:15 Serum Total Protein 5.7 g/dL (6.1-8.1) L 05/01/19 06:52 Total Protein 6.3 g/dL (6.3-8.2) 05/01/19 06:52 Albumin 2.5 g/dL (3.8-4.8) L 05/01/19 06:52 Albumin 3.0 g/dL (3.9-5) L 05/01/19 06:52 Albumin/Globulin Ratio 0.9 % 05/01/19 06:52 Aprcy-8-Wcyxkqrxy 0.5 g/dL (0.2-0.3) H 05/01/19 06:52 Dbxpy-9-Wqqtancpy 0.9 g/dL (0.5-0.9) 05/01/19 06:52 Beta Globulins 0.4 g/dL (0.2-0.5) 05/01/19 06:52 Gamma Globulins 1.0 g/dL (0.8-1.7) 05/01/19 06:52 Abnorm Protein Band 1 see below 05/01/19 06:52 PEP Interpretation see below H 05/01/19 06:52 Triglycerides 309 mg/dL (2-149) H 03/29/19 06:22 Cholesterol 88 mg/dL (50-199) 03/16/19 22:32 LDL Cholesterol Direct 10 mg/dL (50-130) L 03/16/19 22:32 HDL Cholesterol 7 mg/dL (40-59) L 03/16/19 22:32 Cholesterol/HDL Ratio 12.57 % 03/16/19 22:32 Vitamin B12 903.0 pg/mL (211-911) 04/02/19 05:03 25-Hydroxy Vitamin D2 <4 ng/mL 04/29/19 14:14 1,25 Dihydroxy Vit D2 <8 pg/mL 04/29/19 14:14 25-Hydroxy Vitamin D3 11 ng/mL 04/29/19 14:14 1,25 Dihydroxy Vit D3 <8 pg/mL 04/29/19 14:14 Folate 8.05 ng/mL (7.3-26.0) 04/02/19 05:03 Procalcitonin 25.42 ng/mL (<0.15) 03/27/19 19:21 TSH 2.200 mlU/mL (0.270-4.200) 03/16/19 17:05 Free T4 0.72 ng/dL (0.76-1.46) L 03/16/19 17:05 PTH Intact 8.83 pg/mL (15-65) L 04/29/19 14:14 Urine Color Yellow (Yellow) 04/15/19 22:11 Urine Turbidity Clear (Clear) 04/15/19 22:11 Urine pH 6.0 (5.0-7.0) 04/15/19 22:11 Ur Specific Dawson 1.010 (1.003-1.030) 04/15/19 22:11 Urine Protein 30 mg/dl mg/dL (Negative) 04/15/19 22:11 Urine Glucose (UA) Neg mg/dL (Negative) 04/15/19 22:11 Urine Ketones Neg mg/dL (Negative) 04/15/19 22:11 Urine Blood Mod (Negative) 04/15/19 22:11 Urine Nitrite Neg (Negative) 04/15/19 22:11 Urine Bilirubin Neg (Negative) 04/15/19 22:11 Urine Urobilinogen < 2.0 mg/dL (<2.0) 04/15/19 22:11 Ur Leukocyte Esterase Neg (Negative) 04/15/19 22:11 Urine WBC (Auto) 4.0 /HPF (0.0-6.0) 04/15/19 22:11 Urine RBC (Auto) 2.0 /HPF (0.0-6.0) 04/15/19 22:11 U Epithel Cells (Auto) < 1.0 /HPF (0-13.0) 04/15/19 22:11 Amorphous Crystals 1+ 04/05/19 16:50 Urine Mucus Few /HPF 03/17/19 16:05 Urine Sperm 2+ /HPF (ELECTRICAL FOREMAN) 03/17/19 16:05 Urine Eosinophils None seen (None Seen) 03/17/19 16:05 Urine Creatinine 106.6 mg/dL (0.1-20.0) H 03/17/19 16:05 Urine Sodium 95 mmol/L 03/17/19 16:05 Vancomycin Trough 11.5 ug/mL (5.0-20.0) 03/18/19 13:19 Random Vancomycin 10.8 ug/mL (0-40.0) 04/14/19 03:55 Salicylates < 0.3 mg/dL (2.8-20.0) L 03/16/19 17:05 Urine Opiates Screen Presumptive negative 03/17/19 16:05 Urine Methadone Screen Presumptive negative 03/17/19 16:05 Acetaminophen < 5.0 ug/mL (10.0-30.0) L 03/16/19 17:05 Ur Barbiturates Screen Presumptive negative 03/17/19 16:05 Ur Phencyclidine Scrn Presumptive negative 03/17/19 16:05 Ur Amphetamines Screen Presumptive negative 03/17/19 16:05 U Benzodiazepines Scrn Presumptive positive 03/17/19 16:05 Urine Cocaine Screen Presumptive negative 03/17/19 16:05 U Marijuana (THC) Screen Presumptive negative 03/17/19 16:05 Drugs of Abuse Note Disclamer 03/17/19 16:05 Plasma/Serum Alcohol < 0.01 % (0-0.07) 03/16/19 17:05 LANDY Screen Negative (Negative) 04/17/19 04:15 Proteinase 3 (PR3) Ab <1.0 AI (<1.0) 04/21/19 04:22 Myeloperoxidase Ab <1.0 AI (<1.0) 04/21/19 04:22 Complement C3 150 mg/dL (82-185) 04/17/19 04:15 Complement C4 37 mg/dL (15-53) 04/17/19 04:15 Hepatitis A IgM Ab Non-reactive (NonReactive) 04/18/19 10:02 Hep Bs Antigen Non-reactive (Negative) 04/18/19 10:02 Hep B Core IgM Ab Non-reactive (NonReactive) 04/18/19 10:02 Hepatitis C Antibody Non-reactive (NonReactive) 04/18/19 10:02 HIV 1&2 Antibody Rapid Non react (Non React) 03/17/19 11:52 HIV P24 Antigen Non react (Non React) 03/17/19 11:52 Influenza A (Rapid) Negative (Negative) 03/17/19 17:00 Influenza B (Rapid) Negative (Negative) 03/17/19 17:00 Group A Strep Rapid Negative (Negative) 03/17/19 17:00 Miscellaneous Test Flexitest 1 03/21/19 12:00 Blood Type A POSITIVE 04/02/19 16:34 Antibody Screen Negative 04/02/19 16:34 Crossmatch See Detail 04/02/19 16:34 Active Medications - Current Medications Current Medications: Generic Name Dose Route Start Last Admin Trade Name Freq PRN Reason Stop Dose Admin Acetaminophen 650 mg 04/02/19 23:26 04/30/19 11:16 Tylenol PO 650 mg Q4H PRN Administration Pain, Mild (1-3),temp>100.5 Acetaminophen/Hydrocodone Bitart 1 each 05/02/19 11:50 05/04/19 10:40 [place] 5/325 PO 1 each Q6H PRN Administration Pain, Moderate (4-6) Al Hydrox/Mg Hydrox/Simethicone 15 ml 04/30/19 15:15 04/30/19 15:53 Alum-Mag Hydrox-Simeth 068-236-22mh/5ml PO 15 ml Q4H PRN Administration Indigestion Albuterol 2.5 mg 03/29/19 13:08 Proventil IH Q4HRT PRN Shortness Of Breath Amiodarone HCl 200 mg 05/04/19 10:00 05/04/19 10:41 Cordarone PO 200 mg DAILY PAOLO Administration Lipase/Protease/Amylase 1 each 04/20/19 13:17 Sanjay Purcell 10,500 Unit FEEDTUBE PRN PRN For Clogged Feeding Tube Bacitracin 1 applic 04/17/19 08:00 Antibiotic Oint TP Q4H PRN upper lip sore/open Dextrose 50 gm 04/17/19 08:00 D50w (25gm) Vial IV Q1H PRN Hypoglycemia Hydralazine HCl 20 mg 04/14/19 03:00 04/14/19 03:11 Apresoline IV 20 mg Q4H PRN Administration hypertemsion Hydrophilic Ointment 1 applic 03/16/19 15:50 04/19/19 18:24 Vaseline Lip Therapy TP 1 applic Q2HR PRN Administration Dry Lips Sodium Chloride 100 mls @ 999 mls/hr 04/20/19 08:41 Nacl 0.9% IV NEYMAR PRN Hypotension Sodium Chloride 1,000 mls @ 70 mls/hr 05/04/19 00:00 05/04/19 08:02 Nacl 0.9% 1000 Ml IV 70 mls/hr DIRECT PAOLO Administration Lansoprazole 30 mg 04/11/19 10:00 05/04/19 10:41 Prevacid Solutab FEEDTUBE 30 mg BID PAOLO Administration Melatonin 5 mg 04/26/19 21:00 05/03/19 22:27 Melatonin PO 5 mg QHS PRN Administration Sleep Metoprolol Tartrate 25 mg 04/17/19 20:00 05/04/19 10:42 Lopressor PO 25 mg TID PAOLO Administration Multi-Ingred Cream/Lotion/Oil/Oint 1 applic 03/16/19 15:50 03/19/19 20:10 Artificial Tears Ophth Oint OU 1 applic Q4HR PRN Administration Dry Eye(s) Simple Syrup 15 ml 04/20/19 13:17 Simple Syrup FEEDTUBE PRN PRN Hypoglycemia Simple Syrup 30 ml 04/20/19 13:29 05/01/19 17:57 Simple Syrup FEEDTUBE 30 ml PRN PRN Administration Hypoglycemia Sodium Bicarbonate 325 mg 04/20/19 13:17 04/27/19 11:03 Sodium Bicarbonate FEEDTUBE 325 mg PRN PRN Administration For Clogged Feeding Tube Nutrition/Malnutrition Assess - Dietary Evaluation Nutrition/Malnutrition Findings: Nutrition Notes Start: 03/17/19 14:22 Freq: Status: Active Protocol: Document 05/04/19 14:00 RM (Rec: 05/04/19 14:12 RM [email or web address]) Nutrition Notes Initial or Follow up Reassessment Current Diagnosis Acute Kidney Injury,Heart Failure Other Pertinent Diagnosis GI bleed, on HD,Multiple organ failure, encephalopathy, Aspiration pneu Current Diet Regular Labs/Tests BUN 19 Cr 1.3 K 4 Pertinent Medications Reviewed Height 6 ft Weight 146.8 kg [place] Body Weight (kg) 80.90 BMI 43.9 Subjective/Other Information NPO after midnight in place earlier today. Prior to NPO pt continued not eating the meals and stated that he does not like the consistency of the food. Stated that he drinks the Ensure Clear and would like 2 with each meal. Project Financial Analyst recommended ST re evaluation to MD and MD agreed . ST evaluated pt and recommended Regular diet. MD ordered Regular diet. Percent of energy/protein needs met: 23%/14% Burn Absent Trauma Absent Minimum of two criteria No #1 Nutrition Diagnosis Inadequate oral intake Diagnosis Progress(for reassessment Worsened documentation) Is patient on ventilator? No Is Patient Ambulatory and/or Out of Bed No REE-([facility]-confined to bed) 2871.756 Kcal/Kg value to use for calculation 14 Approximate Energy Requirements Using 5 kcal/Kg Calculation Used for Recommendations Kcal/kg Additional Notes Protein: 116-145g (1.2-1.5g/kg , AjdBW 97 kg) Fluids:1 ml/kcal or per MD Nutrition Intervention Change Diet Order: Continue Current Diet Add Supplement/Snack (indicate name/kcal Ensure Clear TID /protein ) Provides kCal: 720 Provides Protein (gm) 24 Goal #1 Meet atleast 75% of kcal/PRO needs via PO and ONS intakes Anticipated Discharge Needs: Regular diet Follow-Up By: 05/07/19 Additional Comments Follow for PO and ONS intake
--- NOTE | 2019-05-04 14:54 | Event Note ---
Date: 05/04/[address] veronica. she will see and advise re rhythm mgt.
[2019-05-04] MEDS: SODIUM HYPOCHLORITE, DAKIN'S 1/2 STRENGTH (0.25%) 473 ML TOPICAL SOLN TP SCH (15:32)
--- NOTE | 2019-05-04 16:44 | Event Note ---
Date: 05/04/19 Electrophysiology progress note 43-year-old male with a prolonged hospitalization that I was asked to evaluate for arrhythmia management. The patient was initially admitted on 03/16/2019 and at this time had multiple metabolic derangements including multisystem organ failure, shock, rhabdomyolysis, acute kidney injury (intermittent hemodialysis), toxic metabolic encephalopathy, recurrent fevers Tmax 105.0, and arrhythmias on presentation. In the emergency department the patient was noted to have an SVT of greater than 200 bpm. He was cardioverted and subsequently developed polymorphic VT requiring defibrillation to normal sinus rhythm. The patient also developed episodes atrial fibrillation with rapid ventricular response. Currently A 12-lead EKG from today reveals sinus rhythm with a ventricular rate of 79 bpm. A complete right bundle branch block and a prolonged corrected QT interval of 545 ms. On admission the patient was noted to have a leukocytosis of 27,000, Thrombocytopenia 75, Sodium of 127, bicarbonate 17, Creatinine 5.8, AST 800/ALT 120, CK 70,000, CK-MB 83.1, and troponin of 0.023. Prior to the records the patient has a known history of obesity, psychiatric illness, GERD, and homelessness. Currently I'm not recommending a cardiac defibrillator. Since admission the patient has not had any reoccurrence of any ventricular arrhythmias. The episode of polymorphic VT was noted when the patient had severe metabolic derangements on admission. Recommend avoiding QT prolonging medications. It appears the patient has not had any atrial fibrillation in several weeks. The patient's metabolic derangements are pretty much resolved. Recommend discontinuing the amiodarone for now. Titrate beta adela as tolerated.
--- NOTE | 2019-05-04 18:52 | Progress Note ---
Assessment and Plan Patient awake and more oriented. patient counselled on using O2. O2 saturation is 94%. No acute respiratory distress. Patient afebrile and has leukocytosis. Patients heart rate and blood pressure running good. Patients calcium still h igh, 10.7. Patient receiving normal saline. According to the patient patient cardiac cath postponed.. . - Patient Problems (1) Acute respiratory failure Current Visit: Yes Status: Acute Qualifiers: Respiratory failure complication: hypoxia Qualified Code(s): J96.01 - Acute respiratory failure with hypoxia Plan to address problem: O2 2L as needed for shortness of breath or desaturation. Albuterol/atrovent aerosol treatments q 6 hours. Continue Prevacid. Recommend DVT prophylaxis. SCDs (2) Altered mental status Current Visit: Yes Status: Acute Qualifiers: Altered mental status type: unspecified Qualified Code(s): R41.82 - Altered mental status, unspecified Plan to address problem: Management as per primary care and neurology. (3) Atrial fibrillation with RVR Current Visit: Yes Status: Acute Plan to address problem: Management as per cardiology. (4) Cardiopulmonary arrest Current Visit: Yes Status: Acute Plan to address problem: Patient resuscitated. Presently resting on 2 litres o2. (5) Acute renal failure Current Visit: Yes Status: Acute Qualifiers: Acute renal failure type: with acute tubular necrosis Qualified Code(s): N17.0 - Acute kidney failure with tubular necrosis Plan to address problem: Management as per nephrology. (6) Aspiration pneumonia Current Visit: Yes Status: Acute Qualifiers: Aspiration pneumonia type: unspecified Plan to address problem: Patient treated with Azactam and zyvox. (7) GI bleed Current Visit: Yes Status: Acute Plan to address problem: Management as per gastroenterology. Subjective Date of service: 05/04/19 Principal diagnosis: anemia - DVT rt IJ Interval history: Patient awake and more oriented. patient counselled on using O2. O2 saturation is 94%. No acute respiratory distress. Patient afebrile and has leukocytosis. Patients heart rate and blood pressure running good. Patients calcium still high, 10.7. Patient receiving normal saline. According to the patient patient cardiac cath postponed.. Objective Vital Signs - 12hr 05/04/19 11:47 Temperature 97.1 F L Pulse Rate 82 Respiratory 20 Rate Blood Pressure 118/74 O2 Sat by Pulse 94 Oximetry Constitutional: no acute distress, alert Eyes: icteric ENT: oropharynx moist, other (extubated) Neck: supple, no lymphadenopathy, no JVD, other (large neck circumference) Effort: mildly labored Ascultation: Bilateral: diminished breath sounds, rales, rhonchi (scant) Percussion: Bilateral: not dull Cardiovascular: irregular rhythm, other ( S1,S2) Gastrointestinal: normoactive bowel sounds, soft, non-tender Integumentary: normal Extremities: no cyanosis, pink and warm, pulses normal, no ischemia or petechiae Neurologic: normal mental status, non-focal exam (grossly), pupils equal and round, CN II-XII normal, other (very weak) Psychiatric: mood appropriate, affect normal CBC and BMP: 05/04/19 06:49 05/04/19 06:49 ABG, PT/INR, D-dimer: ABG POC ABG pH 7.401 (7.35-7.45) 04/07/19 12:57 ABG pH 7.388 pH Units (7.350-7.450) 04/06/19 05:20 POC ABG pCO2 41.5 (35-45) 04/07/19 12:57 ABG pCO2 38.5 mm Hg 04/06/19 05:20 POC ABG pO2 107 (80-105) H 04/07/19 12:57 ABG pO2 104.0 mm Hg (80.0-90.0) H 04/06/19 05:20 POC ABG HCO3 25.7 (22-26 mml/L) 04/07/19 12:57 POC ABG Total CO2 27 (23-27mmol/L) 04/07/19 12:57 POC ABG O2 Sat 98 04/07/19 12:57 ABG O2 Saturation 97.8 % (95.0-99.0) 04/06/19 05:20 PT/INR, D-dimer PT 15.5 Sec. (12.2-14.9) H 05/04/19 06:49 INR 1.24 (0.87-1.13) H 05/04/19 06:49 D-Dimer 4845.98 ng/mlDDU (0-234) H 03/28/19 12:00 Abnormal lab findings: Abnormal Labs 03/16/19 03/16/1919 15:32 16:03 16:05 WBC 27.0 H RBC 5.55 H Hgb 15.7 H Hct 47.1 H MCV MCHC RDW Plt Count 75 L Lymph % (Auto) Davis % (Auto) Eos % (Auto) Lymph # Davis # Eos # Seg Neutrophils % Seg Neuts % (Manual) 85.0 H Lymphocytes % (Manual) 2.0 L Monocytes % (Manual) Nucleated RBC % Seg Neutrophils # Seg Neutrophils # Man 23.0 H Lymphocytes # (Manual) 0.5 L Monocytes # (Manual) PT INR D-Dimer Heparin Anti-Xa Level POC ABG pH ABG pH POC ABG pCO2 POC ABG pO2 ABG pO2 ABG HCO3 ABG O2 Saturation ABG Base Excess ABG Hemoglobin Oxyhemoglobin Sodium 127 L Potassium Chloride 87.8 L Carbon Dioxide 17 L BUN 49 H Creatinine 5.8 H Glucose 150 H POC Glucose 118 H Lactic Acid Calcium 6.6 L Ionized Calcium Phosphorus Magnesium 1.10 L Iron TIBC Ferritin Total Bilirubin Direct Bilirubin AST ALT Alkaline Phosphatase Total Creatine Kinase 38743 H CK-MB (CK-2) Troponin T C-Reactive Protein Serum Total Protein Total Protein Albumin Ywtbe-2-Xhpyficbf Zmjot-0-Uaoiudwif PEP Interpretation Triglycerides LDL Cholesterol Direct HDL Cholesterol Free T4 PTH Intact Urine WBC (Auto) Urine Creatinine Salicylates Acetaminophen Crossmatch 03/16/19 03/16/19 03/16/19 16:59 17:05 17:05 WBC RBC Hgb Hct MCV MCHC RDW Plt Count Lymph % (Auto) Davis % (Auto) Eos % (Auto) Lymph # Davis # Eos # Seg Neutrophils % Seg Neuts % (Manual) Lymphocytes % (Manual) Monocytes % (Manual) Nucleated RBC % Seg Neutrophils # Seg Neutrophils # Man Lymphocytes # (Manual) Monocytes # (Manual) PT INR D-Dimer Heparin Anti-Xa Level POC ABG pH 7.297 L ABG pH POC ABG pCO2 33.0 L POC ABG pO2 ABG pO2 ABG HCO3 ABG O2 Saturation ABG Base Excess ABG Hemoglobin Oxyhemoglobin Sodium Potassium Chloride Carbon Dioxide BUN Creatinine Glucose POC Glucose Lactic Acid Calcium Ionized Calcium Phosphorus Magnesium Iron TIBC Ferritin Total Bilirubin Direct Bilirubin AST ALT Alkaline Phosphatase Total Creatine Kinase 64830 H CK-MB (CK-2) 83.1 H Troponin T C-Reactive Protein Serum Total Protein Total Protein Albumin Ufqna-4-Pscungvwl Filxs-4-Ecdtgnwja PEP Interpretation Triglycerides LDL Cholesterol Direct HDL Cholesterol Free T4 0.72 L PTH Intact Urine WBC (Auto) Urine Creatinine Salicylates Acetaminophen Crossmatch 03/16/19 03/16/19 03/16/19 17:05 17:05 17:05 WBC RBC Hgb Hct MCV MCHC RDW Plt Count Lymph % (Auto) Davis % (Auto) Eos % (Auto) Lymph # Davis # Eos # Seg Neutrophils % Seg Neuts % (Manual) Lymphocytes % (Manual) Monocytes % (Manual) Nucleated RBC % Seg Neutrophils # Seg Neutrophils # Man Lymphocytes # (Manual) Monocytes # (Manual) PT INR D-Dimer Heparin Anti-Xa Level POC ABG pH ABG pH POC ABG pCO2 POC ABG pO2 ABG pO2 ABG HCO3 ABG O2 Saturation ABG Base Excess ABG Hemoglobin Oxyhemoglobin Sodium Potassium Chloride Carbon Dioxide BUN Creatinine Glucose POC Glucose Lactic Acid 5.10 H* Calcium Ionized Calcium Phosphorus Magnesium Iron TIBC Ferritin Total Bilirubin Direct Bilirubin AST ALT Alkaline Phosphatase Total Creatine Kinase CK-MB (CK-2) Troponin T C-Reactive Protein Serum Total Protein Total Protein Albumin Znnaa-2-Zfmkdwjfy Hokfj-7-Secrnvkuf PEP Interpretation Triglycerides LDL Cholesterol Direct HDL Cholesterol Free T4 PTH Intact Urine WBC (Auto) Urine Creatinine Salicylates < 0.3 L Acetaminophen < 5.0 L Crossmatch 03/16/19 03/16/19 03/16/19 17:05 17:05 20:35 WBC RBC Hgb Hct MCV MCHC RDW Plt Count Lymph % (Auto) Davis % (Auto) Eos % (Auto) Lymph # Davis # Eos # Seg Neutrophils % Seg Neuts % (Manual) Lymphocytes % (Manual) Monocytes % (Manual) Nucleated RBC % Seg Neutrophils # Seg Neutrophils # Man Lymphocytes # (Manual) Monocytes # (Manual) PT 15.9 H INR 1.30 H D-Dimer Heparin Anti-Xa Level POC ABG pH ABG pH POC ABG pCO2 POC ABG pO2 ABG pO2 ABG HCO3 ABG O2 Saturation ABG Base Excess ABG Hemoglobin Oxyhemoglobin Sodium Potassium Chloride Carbon Dioxide BUN Creatinine Glucose POC Glucose Lactic Acid 3.30 H* Calcium Ionized Calcium Phosphorus Magnesium Iron TIBC Ferritin Total Bilirubin 6.20 H Direct Bilirubin 5.9 H AST 800 H ALT 120 H Alkaline Phosphatase Total Creatine Kinase CK-MB (CK-2) Troponin T C-Reactive Protein Serum Total Protein Total Protein 4.4 L Albumin 2.4 L Xrglo-1-Fosuuybpq Rclus-9-Aoibbgvka PEP Interpretation Triglycerides LDL Cholesterol Direct HDL Cholesterol Free T4 PTH Intact Urine WBC (Auto) Urine Creatinine Salicylates Acetaminophen Crossmatch 03/16/19 03/16/19 03/16/19 21:45 22:32 Unknown WBC RBC Hgb Hct MCV MCHC RDW Plt Count Lymph % (Auto) Davis % (Auto) Eos % (Auto) Lymph # Davis # Eos # Seg Neutrophils % Seg Neuts % (Manual) Lymphocytes % (Manual) Monocytes % (Manual) Nucleated RBC % Seg Neutrophils # Seg Neutrophils # Man Lymphocytes # (Manual) Monocytes # (Manual) PT INR D-Dimer Heparin Anti-Xa Level POC ABG pH ABG pH POC ABG pCO2 POC ABG pO2 ABG pO2 ABG HCO3 ABG O2 Saturation ABG Base Excess ABG Hemoglobin Oxyhemoglobin Sodium Potassium Chloride Carbon Dioxide BUN Creatinine Glucose POC Glucose Lactic Acid 3.30 H* 3.00 H* Calcium Ionized Calcium Phosphorus Magnesium Iron TIBC Ferritin Total Bilirubin Direct Bilirubin AST ALT Alkaline Phosphatase Total Creatine Kinase CK-MB (CK-2) Troponin T 0.047 H D C-Reactive Protein Serum Total Protein Total Protein Albumin Esvdp-4-Kauyglokv Pudbq-4-Linjirrgh PEP Interpretation Triglycerides 395 H LDL Cholesterol Direct 10 L HDL Cholesterol 7 L Free T4 PTH Intact Urine WBC (Auto) Urine Creatinine Salicylates Acetaminophen Crossmatch 03/17/19 03/17/19 03/17/19 03:45 03:45 03:45 WBC RBC Hgb Hct MCV MCHC RDW Plt Count Lymph % (Auto) Davis % (Auto) Eos % (Auto) Lymph # Davis # Eos # Seg Neutrophils % Seg Neuts % (Manual) Lymphocytes % (Manual) Monocytes % (Manual) Nucleated RBC % Seg Neutrophils # Seg Neutrophils # Man Lymphocytes # (Manual) Monocytes # (Manual) PT INR D-Dimer Heparin Anti-Xa Level POC ABG pH ABG pH POC ABG pCO2 POC ABG pO2 ABG pO2 ABG HCO3 ABG O2 Saturation ABG Base Excess ABG Hemoglobin Oxyhemoglobin Sodium 131 L Potassium Chloride 88.9 L Carbon Dioxide BUN 53 H Creatinine 7.1 H Glucose POC Glucose Lactic Acid 4.10 H* Calcium 5.4 L* D Ionized Calcium Phosphorus 7.30 H Magnesium 1.60 L Iron TIBC Ferritin Total Bilirubin 5.90 H Direct Bilirubin AST 801 H ALT 109 H Alkaline Phosphatase Total Creatine Kinase 79729 H 96914 H CK-MB (CK-2) 41.5 H Troponin T 0.054 H C-Reactive Protein Serum Total Protein Total Protein 4.5 L Albumin 2.0 L Kcxgv-8-Moubbribs Rbnkh-2-Ordnebvco PEP Interpretation Triglycerides LDL Cholesterol Direct HDL Cholesterol Free T4 PTH Intact Urine WBC (Auto) Urine Creatinine Salicylates Acetaminophen Crossmatch 03/17/19 03/17/19 03/17/19 05:47 07:16 07:16 WBC RBC Hgb Hct MCV MCHC RDW Plt Count Lymph % (Auto) Davis % (Auto) Eos % (Auto) Lymph # Davis # Eos # Seg Neutrophils % Seg Neuts % (Manual) Lymphocytes % (Manual) Monocytes % (Manual) Nucleated RBC % Seg Neutrophils # Seg Neutrophils # Man Lymphocytes # (Manual) Monocytes # (Manual) PT INR D-Dimer Heparin Anti-Xa Level POC ABG pH 7.193 L ABG pH POC ABG pCO2 45.2 H POC ABG pO2 65 L ABG pO2 ABG HCO3 ABG O2 Saturation ABG Base Excess ABG Hemoglobin Oxyhemoglobin Sodium Potassium Chloride Carbon Dioxide BUN Creatinine Glucose POC Glucose Lactic Acid 5.50 H* Calcium Ionized Calcium Phosphorus Magnesium Iron TIBC Ferritin Total Bilirubin Direct Bilirubin AST ALT Alkaline Phosphatase Total Creatine Kinase 90514 H CK-MB (CK-2) 54.3 H Troponin T 0.058 H C-Reactive Protein Serum Total Protein Total Protein Albumin Ctfok-8-Jckongwji Qfcmt-8-Yrsnmnguc PEP Interpretation Triglycerides LDL Cholesterol Direct HDL Cholesterol Free T4 PTH Intact Urine WBC (Auto) Urine Creatinine Salicylates Acetaminophen Crossmatch 03/17/19 03/17/19 03/17/19 11:52 12:51 13:01 WBC RBC Hgb Hct MCV MCHC RDW Plt Count Lymph % (Auto) Davis % (Auto) Eos % (Auto) Lymph # Davis # Eos # Seg Neutrophils % Seg Neuts % (Manual) Lymphocytes % (Manual) Monocytes % (Manual) Nucleated RBC % Seg Neutrophils # Seg Neutrophils # Man Lymphocytes # (Manual) Monocytes # (Manual) PT INR D-Dimer Heparin Anti-Xa Level POC ABG pH 7.154 L ABG pH POC ABG pCO2 34.3 L POC ABG pO2 73 L ABG pO2 ABG HCO3 ABG O2 Saturation ABG Base Excess ABG Hemoglobin Oxyhemoglobin Sodium Potassium Chloride Carbon Dioxide BUN Creatinine Glucose POC Glucose 60 L Lactic Acid 8.20 H* Calcium Ionized Calcium Phosphorus Magnesium Iron TIBC Ferritin Total Bilirubin Direct Bilirubin AST ALT Alkaline Phosphatase Total Creatine Kinase CK-MB (CK-2) Troponin T C-Reactive Protein Serum Total Protein Total Protein Albumin Higni-2-Aktccbvol Muwca-7-Mdplepfsq PEP Interpretation Triglycerides LDL Cholesterol Direct HDL Cholesterol Free T4 PTH Intact Urine WBC (Auto) Urine Creatinine Salicylates Acetaminophen Crossmatch 03/17/19 03/17/19 03/17/19 14:37 14:37 14:37 WBC 29.3 H RBC Hgb Hct MCV MCHC RDW 15.8 H Plt Count 45 L Lymph % (Auto) Davis % (Auto) Eos % (Auto) Lymph # Davis # Eos # Seg Neutrophils % Seg Neuts % (Manual) 81.0 H Lymphocytes % (Manual) 1.0 L Monocytes % (Manual) 15.0 H Nucleated RBC % Seg Neutrophils # Seg Neutrophils # Man 23.7 H Lymphocytes # (Manual) 0.3 L Monocytes # (Manual) 4.4 H PT INR D-Dimer Heparin Anti-Xa Level POC ABG pH ABG pH POC ABG pCO2 POC ABG pO2 ABG pO2 ABG HCO3 ABG O2 Saturation ABG Base Excess ABG Hemoglobin Oxyhemoglobin Sodium Potassium Chloride Carbon Dioxide BUN Creatinine Glucose POC Glucose Lactic Acid 4.90 H* Calcium Ionized Calcium Phosphorus Magnesium Iron TIBC Ferritin Total Bilirubin Direct Bilirubin AST ALT Alkaline Phosphatase Total Creatine Kinase CK-MB (CK-2) Troponin T C-Reactive Protein 24.90 H Serum Total Protein Total Protein Albumin Ssvso-4-Hnbbqhwou Jasng-2-Ouuutkvfp PEP Interpretation Triglycerides LDL Cholesterol Direct HDL Cholesterol Free T4 PTH Intact Urine WBC (Auto) Urine Creatinine Salicylates Acetaminophen Crossmatch 03/17/19 03/17/19 03/17/19 16:05 16:05 17:02 WBC RBC Hgb Hct MCV MCHC RDW Plt Count Lymph % (Auto) Davis % (Auto) Eos % (Auto) Lymph # Davis # Eos # Seg Neutrophils % Seg Neuts % (Manual) Lymphocytes % (Manual) Monocytes % (Manual) Nucleated RBC % Seg Neutrophils # Seg Neutrophils # Man Lymphocytes # (Manual) Monocytes # (Manual) PT INR D-Dimer Heparin Anti-Xa Level POC ABG pH 7.183 L ABG pH POC ABG pCO2 POC ABG pO2 65 L ABG pO2 ABG HCO3 ABG O2 Saturation ABG Base Excess ABG Hemoglobin Oxyhemoglobin Sodium Potassium Chloride Carbon Dioxide BUN Creatinine Glucose POC Glucose Lactic Acid Calcium Ionized Calcium Phosphorus Magnesium Iron TIBC Ferritin Total Bilirubin Direct Bilirubin AST ALT Alkaline Phosphatase Total Creatine Kinase CK-MB (CK-2) Troponin T C-Reactive Protein Serum Total Protein Total Protein Albumin Vkpgk-7-Oecnioktv Okeet-1-Fzqktbvvs PEP Interpretation Triglycerides LDL Cholesterol Direct HDL Cholesterol Free T4 PTH Intact Urine WBC (Auto) 30.0 H Urine Creatinine 106.6 H Salicylates Acetaminophen Crossmatch 03/18/19 03/18/19 03/18/19 05:12 05:16 05:53 WBC RBC Hgb Hct MCV MCHC RDW Plt Count Lymph % (Auto) Davis % (Auto) Eos % (Auto) Lymph # Davis # Eos # Seg Neutrophils % Seg Neuts % (Manual) Lymphocytes % (Manual) Monocytes % (Manual) Nucleated RBC % Seg Neutrophils # Seg Neutrophils # Man Lymphocytes # (Manual) Monocytes # (Manual) PT INR D-Dimer Heparin Anti-Xa Level POC ABG pH 7.257 L ABG pH POC ABG pCO2 31.6 L POC ABG pO2 69 L ABG pO2 ABG HCO3 ABG O2 Saturation ABG Base Excess ABG Hemoglobin Oxyhemoglobin Sodium Potassium Chloride Carbon Dioxide BUN Creatinine Glucose POC Glucose 141 H Lactic Acid 5.00 H* Calcium Ionized Calcium Phosphorus Magnesium Iron TIBC Ferritin Total Bilirubin Direct Bilirubin AST ALT Alkaline Phosphatase Total Creatine Kinase CK-MB (CK-2) Troponin T C-Reactive Protein Serum Total Protein Total Protein Albumin Nzfng-8-Vtvfnfjzy Aaadg-9-Kqwxflbfc PEP Interpretation Triglycerides LDL Cholesterol Direct HDL Cholesterol Free T4 PTH Intact Urine WBC (Auto) Urine Creatinine Salicylates Acetaminophen Crossmatch 03/18/19 03/18/19 03/18/19 06:57 08:40 08:40 WBC 31.7 H RBC Hgb Hct MCV MCHC RDW 15.5 H Plt Count 35 L Lymph % (Auto) Davis % (Auto) Eos % (Auto) Lymph # Davis # Eos # Seg Neutrophils % Seg Neuts % (Manual) Lymphocytes % (Manual) Monocytes % (Manual) Nucleated RBC % Seg Neutrophils # Seg Neutrophils # Man Lymphocytes # (Manual) Monocytes # (Manual) PT INR D-Dimer Heparin Anti-Xa Level POC ABG pH ABG pH POC ABG pCO2 POC ABG pO2 ABG pO2 ABG HCO3 ABG O2 Saturation ABG Base Excess ABG Hemoglobin Oxyhemoglobin Sodium 132 L Potassium 5.5 H D Chloride 88.5 L Carbon Dioxide 18 L BUN 71 H Creatinine 8.1 H Glucose 205 H POC Glucose Lactic Acid 5.00 H* Calcium 4.1 L* D Ionized Calcium Phosphorus Magnesium 2.40 H Iron TIBC Ferritin Total Bilirubin 7.50 H Direct Bilirubin AST 1088 H ALT 159 H Alkaline Phosphatase 190 H Total Creatine Kinase 455952 H CK-MB (CK-2) Troponin T C-Reactive Protein Serum Total Protein Total Protein 4.7 L Albumin 1.8 L Faqrj-6-Udfthwkml Humkm-5-Hzjuljfar PEP Interpretation Triglycerides LDL Cholesterol Direct HDL Cholesterol Free T4 PTH Intact Urine WBC (Auto) Urine Creatinine Salicylates Acetaminophen Crossmatch 03/18/19 03/18/19 03/18/19 12:33 12:50 13:19 WBC RBC Hgb Hct MCV MCHC RDW Plt Count Lymph % (Auto) Davis % (Auto) Eos % (Auto) Lymph # Davis # Eos # Seg Neutrophils % Seg Neuts % (Manual) Lymphocytes % (Manual) Monocytes % (Manual) Nucleated RBC % Seg Neutrophils # Seg Neutrophils # Man Lymphocytes # (Manual) Monocytes # (Manual) PT INR D-Dimer Heparin Anti-Xa Level POC ABG pH 7.282 L ABG pH POC ABG pCO2 POC ABG pO2 67 L ABG pO2 ABG HCO3 ABG O2 Saturation ABG Base Excess ABG Hemoglobin Oxyhemoglobin Sodium Potassium Chloride Carbon Dioxide BUN Creatinine Glucose POC Glucose 129 H Lactic Acid 3.30 H* Calcium Ionized Calcium Phosphorus Magnesium Iron TIBC Ferritin Total Bilirubin Direct Bilirubin AST ALT Alkaline Phosphatase Total Creatine Kinase CK-MB (CK-2) Troponin T C-Reactive Protein Serum Total Protein Total Protein Albumin Fnxsk-3-Hutwsdogm Dbawh-5-Egrlgtyau PEP Interpretation Triglycerides LDL Cholesterol Direct HDL Cholesterol Free T4 PTH Intact Urine WBC (Auto) Urine Creatinine Salicylates Acetaminophen Crossmatch 03/18/19 03/18/19 03/18/19 13:19 16:50 18:11 WBC RBC Hgb Hct MCV MCHC RDW Plt Count Lymph % (Auto) Davis % (Auto) Eos % (Auto) Lymph # Davis # Eos # Seg Neutrophils % Seg Neuts % (Manual) Lymphocytes % (Manual) Monocytes % (Manual) Nucleated RBC % Seg Neutrophils # Seg Neutrophils # Man Lymphocytes # (Manual) Monocytes # (Manual) PT INR D-Dimer Heparin Anti-Xa Level POC ABG pH ABG pH POC ABG pCO2 POC ABG pO2 59 L ABG pO2 ABG HCO3 ABG O2 Saturation ABG Base Excess ABG Hemoglobin Oxyhemoglobin Sodium Potassium Chloride Carbon Dioxide BUN Creatinine Glucose POC Glucose 151 H Lactic Acid Calcium 4.2 L* Ionized Calcium Phosphorus Magnesium Iron TIBC Ferritin Total Bilirubin Direct Bilirubin AST ALT Alkaline Phosphatase Total Creatine Kinase 948454 H CK-MB (CK-2) Troponin T C-Reactive Protein Serum Total Protein Total Protein Albumin Qbbbg-6-Nhhaoqxyt Xdyzn-4-Xghoezweh PEP Interpretation Triglycerides LDL Cholesterol Direct HDL Cholesterol Free T4 PTH Intact Urine WBC (Auto) Urine Creatinine Salicylates Acetaminophen Crossmatch 03/18/19 03/18/19 03/19/19 18:20 23:39 01:42 WBC RBC Hgb Hct MCV MCHC RDW Plt Count Lymph % (Auto) Davis % (Auto) Eos % (Auto) Lymph # Davis # Eos # Seg Neutrophils % Seg Neuts % (Manual) Lymphocytes % (Manual) Monocytes % (Manual) Nucleated RBC % Seg Neutrophils # Seg Neutrophils # Man Lymphocytes # (Manual) Monocytes # (Manual) PT INR D-Dimer Heparin Anti-Xa Level POC ABG pH 7.345 L ABG pH 7.285 L POC ABG pCO2 POC ABG pO2 59 L ABG pO2 44.0 L ABG HCO3 ABG O2 Saturation 70.9 L ABG Base Excess -5.7 L ABG Hemoglobin 11.9 L Oxyhemoglobin 69.6 L Sodium Potassium Chloride Carbon Dioxide BUN Creatinine Glucose POC Glucose 152 H Lactic Acid Calcium Ionized Calcium Phosphorus Magnesium Iron TIBC Ferritin Total Bilirubin Direct Bilirubin AST ALT Alkaline Phosphatase Total Creatine Kinase CK-MB (CK-2) Troponin T C-Reactive Protein Serum Total Protein Total Protein Albumin Ejvaj-4-Nhrcbfrvj Iagjo-4-Zrvhjhplz PEP Interpretation Triglycerides LDL Cholesterol Direct HDL Cholesterol Free T4 PTH Intact Urine WBC (Auto) Urine Creatinine Salicylates Acetaminophen Crossmatch 03/19/19 03/19/19 03/19/19 04:00 04:00 05:35 WBC 36.5 H RBC Hgb Hct MCV MCHC RDW 15.8 H Plt Count 35 L Lymph % (Auto) Davis % (Auto) Eos % (Auto) Lymph # Davis # Eos # Seg Neutrophils % Seg Neuts % (Manual) Lymphocytes % (Manual) Monocytes % (Manual) Nucleated RBC % Seg Neutrophils # Seg Neutrophils # Man Lymphocytes # (Manual) Monocytes # (Manual) PT INR D-Dimer Heparin Anti-Xa Level POC ABG pH ABG pH 7.265 L POC ABG pCO2 POC ABG pO2 ABG pO2 35.4 L* ABG HCO3 ABG O2 Saturation 54.4 L ABG Base Excess -6.7 L ABG Hemoglobin 12.9 L Oxyhemoglobin 53.4 L Sodium 132 L Potassium 5.7 H Chloride 89.8 L Carbon Dioxide 19 L BUN 62 H Creatinine 6.4 H Glucose 151 H POC Glucose Lactic Acid Calcium 5.2 L* D Ionized Calcium Phosphorus Magnesium Iron TIBC Ferritin Total Bilirubin 7.80 H Direct Bilirubin AST 682 H ALT 130 H Alkaline Phosphatase 167 H Total Creatine Kinase CK-MB (CK-2) Troponin T C-Reactive Protein Serum Total Protein Total Protein 4.8 L Albumin 2.3 L Bihfr-7-Ciucshowv Laajq-8-Xwbyjhvxp PEP Interpretation Triglycerides LDL Cholesterol Direct HDL Cholesterol Free T4 PTH Intact Urine WBC (Auto) Urine Creatinine Salicylates Acetaminophen Crossmatch 03/19/19 03/19/19 03/19/19 05:49 09:16 09:50 WBC RBC Hgb Hct MCV MCHC RDW Plt Count Lymph % (Auto) Davis % (Auto) Eos % (Auto) Lymph # Davis # Eos # Seg Neutrophils % Seg Neuts % (Manual) Lymphocytes % (Manual) Monocytes % (Manual) Nucleated RBC % Seg Neutrophils # Seg Neutrophils # Man Lymphocytes # (Manual) Monocytes # (Manual) PT INR D-Dimer Heparin Anti-Xa Level POC ABG pH 7.222 L ABG pH POC ABG pCO2 56.6 H POC ABG pO2 ABG pO2 ABG HCO3 ABG O2 Saturation ABG Base Excess ABG Hemoglobin Oxyhemoglobin Sodium Potassium Chloride Carbon Dioxide BUN Creatinine Glucose POC Glucose 154 H Lactic Acid 2.70 H* Calcium Ionized Calcium Phosphorus Magnesium Iron TIBC Ferritin Total Bilirubin Direct Bilirubin AST ALT Alkaline Phosphatase Total Creatine Kinase CK-MB (CK-2) Troponin T C-Reactive Protein Serum Total Protein Total Protein Albumin Alufo-6-Qzqnknguo Wlwye-4-Jeayogdta PEP Interpretation Triglycerides LDL Cholesterol Direct HDL Cholesterol Free T4 PTH Intact Urine WBC (Auto) Urine Creatinine Salicylates Acetaminophen Crossmatch 03/19/19 03/19/19 03/19/19 09:50 11:28 17:58 WBC RBC Hgb Hct MCV MCHC RDW Plt Count Lymph % (Auto) Davis % (Auto) Eos % (Auto) Lymph # Davis # Eos # Seg Neutrophils % Seg Neuts % (Manual) Lymphocytes % (Manual) Monocytes % (Manual) Nucleated RBC % Seg Neutrophils # Seg Neutrophils # Man Lymphocytes # (Manual) Monocytes # (Manual) PT INR D-Dimer Heparin Anti-Xa Level POC ABG pH 7.250 L ABG pH POC ABG pCO2 52.6 H POC ABG pO2 ABG pO2 ABG HCO3 ABG O2 Saturation ABG Base Excess ABG Hemoglobin Oxyhemoglobin Sodium Potassium Chloride Carbon Dioxide BUN Creatinine Glucose POC Glucose 160 H Lactic Acid Calcium Ionized Calcium Phosphorus Magnesium Iron TIBC Ferritin Total Bilirubin Direct Bilirubin AST ALT Alkaline Phosphatase Total Creatine Kinase 33474 H CK-MB (CK-2) Troponin T C-Reactive Protein Serum Total Protein Total Protein Albumin Xfikf-0-Pdtriagey Pdppb-6-Eqxvgzjra PEP Interpretation Triglycerides LDL Cholesterol Direct HDL Cholesterol Free T4 PTH Intact Urine WBC (Auto) Urine Creatinine Salicylates Acetaminophen Crossmatch 03/19/19 03/19/19 03/20/19 19:48 21:03 02:16 WBC RBC Hgb Hct MCV MCHC RDW Plt Count Lymph % (Auto) Davis % (Auto) Eos % (Auto) Lymph # Davis # Eos # Seg Neutrophils % Seg Neuts % (Manual) Lymphocytes % (Manual) Monocytes % (Manual) Nucleated RBC % Seg Neutrophils # Seg Neutrophils # Man Lymphocytes # (Manual) Monocytes # (Manual) PT INR D-Dimer Heparin Anti-Xa Level POC ABG pH 7.279 L ABG pH POC ABG pCO2 50.3 H POC ABG pO2 129 H ABG pO2 ABG HCO3 ABG O2 Saturation ABG Base Excess ABG Hemoglobin Oxyhemoglobin Sodium Potassium Chloride Carbon Dioxide BUN Creatinine Glucose POC Glucose 119 H 119 H Lactic Acid Calcium Ionized Calcium Phosphorus Magnesium Iron TIBC Ferritin Total Bilirubin Direct Bilirubin AST ALT Alkaline Phosphatase Total Creatine Kinase CK-MB (CK-2) Troponin T C-Reactive Protein Serum Total Protein Total Protein Albumin Owuum-5-Hjvbkzgwv Tahbg-0-Qtxwqcyva PEP Interpretation Triglycerides LDL Cholesterol Direct HDL Cholesterol Free T4 PTH Intact Urine WBC (Auto) Urine Creatinine Salicylates Acetaminophen Crossmatch 03/20/19 03/20/19 03/20/19 04:23 05:05 09:30 WBC 36.3 H RBC Hgb Hct MCV MCHC RDW 15.5 H Plt Count 29 L Lymph % (Auto) Davis % (Auto) Eos % (Auto) Lymph # Davis # Eos # Seg Neutrophils % Seg Neuts % (Manual) Lymphocytes % (Manual) Monocytes % (Manual) Nucleated RBC % Seg Neutrophils # Seg Neutrophils # Man Lymphocytes # (Manual) Monocytes # (Manual) PT INR D-Dimer Heparin Anti-Xa Level POC ABG pH ABG pH POC ABG pCO2 POC ABG pO2 280 H ABG pO2 ABG HCO3 ABG O2 Saturation ABG Base Excess ABG Hemoglobin Oxyhemoglobin Sodium Potassium Chloride Carbon Dioxide BUN Creatinine Glucose POC Glucose 115 H Lactic Acid Calcium Ionized Calcium Phosphorus Magnesium Iron TIBC Ferritin Total Bilirubin Direct Bilirubin AST ALT Alkaline Phosphatase Total Creatine Kinase CK-MB (CK-2) Troponin T C-Reactive Protein Serum Total Protein Total Protein Albumin Lnqar-8-Vclzjyflx Dnvtx-6-Jzprrbosx PEP Interpretation Triglycerides LDL Cholesterol Direct HDL Cholesterol Free T4 PTH Intact Urine WBC (Auto) Urine Creatinine Salicylates Acetaminophen Crossmatch 03/20/19 03/20/19 03/20/19 09:30 09:30 11:34 WBC RBC Hgb Hct MCV MCHC RDW Plt Count Lymph % (Auto) Davis % (Auto) Eos % (Auto) Lymph # Davis # Eos # Seg Neutrophils % Seg Neuts % (Manual) Lymphocytes % (Manual) Monocytes % (Manual) Nucleated RBC % Seg Neutrophils # Seg Neutrophils # Man Lymphocytes # (Manual) Monocytes # (Manual) PT INR D-Dimer Heparin Anti-Xa Level POC ABG pH ABG pH POC ABG pCO2 POC ABG pO2 ABG pO2 ABG HCO3 ABG O2 Saturation ABG Base Excess ABG Hemoglobin Oxyhemoglobin Sodium 131 L Potassium Chloride 92.3 L Carbon Dioxide 20 L BUN 68 H Creatinine 6.1 H Glucose 164 H POC Glucose 141 H Lactic Acid Calcium 5.3 L* Ionized Calcium Phosphorus Magnesium Iron TIBC Ferritin Total Bilirubin 9.50 H Direct Bilirubin AST 381 H ALT 116 H Alkaline Phosphatase 255 H Total Creatine Kinase 93665 H CK-MB (CK-2) Troponin T C-Reactive Protein Serum Total Protein Total Protein 5.1 L Albumin 2.3 L Uwdsg-1-Kbowipxed Yfava-3-Qsvixjzdq PEP Interpretation Triglycerides LDL Cholesterol Direct HDL Cholesterol Free T4 PTH Intact Urine WBC (Auto) Urine Creatinine Salicylates Acetaminophen Crossmatch 03/20/19 03/20/19 03/20/19 14:41 14:45 18:50 WBC RBC Hgb Hct MCV MCHC RDW Plt Count Lymph % (Auto) Davis % (Auto) Eos % (Auto) Lymph # Davis # Eos # Seg Neutrophils % Seg Neuts % (Manual) Lymphocytes % (Manual) Monocytes % (Manual) Nucleated RBC % Seg Neutrophils # Seg Neutrophils # Man Lymphocytes # (Manual) Monocytes # (Manual) PT INR D-Dimer Heparin Anti-Xa Level POC ABG pH ABG pH POC ABG pCO2 POC ABG pO2 ABG pO2 ABG HCO3 ABG O2 Saturation ABG Base Excess ABG Hemoglobin Oxyhemoglobin Sodium Potassium Chloride Carbon Dioxide BUN Creatinine Glucose POC Glucose 117 H Lactic Acid 2.90 H* Calcium Ionized Calcium Phosphorus Magnesium Iron TIBC Ferritin Total Bilirubin Direct Bilirubin AST ALT Alkaline Phosphatase Total Creatine Kinase CK-MB (CK-2) Troponin T C-Reactive Protein 13.30 H Serum Total Protein Total Protein Albumin Amgle-7-Owlxmtrqm Giafb-8-Mgswnljwy PEP Interpretation Triglycerides LDL Cholesterol Direct HDL Cholesterol Free T4 PTH Intact Urine WBC (Auto) Urine Creatinine Salicylates Acetaminophen Crossmatch 03/20/19 03/21/19 03/21/19 21:55 04:26 04:26 WBC 37.8 H RBC Hgb Hct MCV MCHC RDW 15.4 H Plt Count 36 L Lymph % (Auto) Davis % (Auto) Eos % (Auto) Lymph # Davis # Eos # Seg Neutrophils % Seg Neuts % (Manual) 93.0 H Lymphocytes % (Manual) 3.0 L Monocytes % (Manual) Nucleated RBC % 1.0 H Seg Neutrophils # 34.6 H Seg Neutrophils # Man 35.2 H Lymphocytes # (Manual) 1.1 L Monocytes # (Manual) PT INR D-Dimer Heparin Anti-Xa Level POC ABG pH ABG pH POC ABG pCO2 POC ABG pO2 ABG pO2 ABG HCO3 ABG O2 Saturation ABG Base Excess ABG Hemoglobin Oxyhemoglobin Sodium 131 L Potassium Chloride 90.7 L Carbon Dioxide 21 L BUN 69 H Creatinine 5.7 H Glucose 170 H POC Glucose 128 H Lactic Acid Calcium 6.1 L D Ionized Calcium Phosphorus Magnesium Iron TIBC Ferritin Total Bilirubin 9.50 H Direct Bilirubin AST 308 H ALT 124 H Alkaline Phosphatase 327 H Total Creatine Kinase 53109 H CK-MB (CK-2) Troponin T C-Reactive Protein Serum Total Protein Total Protein 5.7 L Albumin 2.6 L Lwjzy-1-Kcbzjuydb Kvuzr-5-Zmmpuqqqy PEP Interpretation Triglycerides LDL Cholesterol Direct HDL Cholesterol Free T4 PTH Intact Urine WBC (Auto) Urine Creatinine Salicylates Acetaminophen Crossmatch 03/21/19 03/21/19 03/21/19 05:17 05:39 08:29 WBC RBC Hgb Hct MCV MCHC RDW Plt Count Lymph % (Auto) Davis % (Auto) Eos % (Auto) Lymph # Davis # Eos # Seg Neutrophils % Seg Neuts % (Manual) Lymphocytes % (Manual) Monocytes % (Manual) Nucleated RBC % Seg Neutrophils # Seg Neutrophils # Man Lymphocytes # (Manual) Monocytes # (Manual) PT INR D-Dimer Heparin Anti-Xa Level POC ABG pH ABG pH POC ABG pCO2 POC ABG pO2 209 H ABG pO2 ABG HCO3 ABG O2 Saturation ABG Base Excess ABG Hemoglobin Oxyhemoglobin Sodium Potassium Chloride Carbon Dioxide BUN Creatinine Glucose POC Glucose 145 H Lactic Acid Calcium Ionized Calcium Phosphorus Magnesium Iron TIBC Ferritin Total Bilirubin Direct Bilirubin AST ALT Alkaline Phosphatase Total Creatine Kinase 76918 H CK-MB (CK-2) Troponin T C-Reactive Protein Serum Total Protein Total Protein Albumin Dvcqq-6-Lxkzyxctr Lwhqm-7-Wpcjyebap PEP Interpretation Triglycerides LDL Cholesterol Direct HDL Cholesterol Free T4 PTH Intact Urine WBC (Auto) Urine Creatinine Salicylates Acetaminophen Crossmatch 03/21/19 03/21/19 03/21/19 08:29 11:43 12:00 WBC RBC Hgb Hct MCV MCHC RDW Plt Count Lymph % (Auto) Davis % (Auto) Eos % (Auto) Lymph # Davis # Eos # Seg Neutrophils % Seg Neuts % (Manual) Lymphocytes % (Manual) Monocytes % (Manual) Nucleated RBC % Seg Neutrophils # Seg Neutrophils # Man Lymphocytes # (Manual) Monocytes # (Manual) PT INR D-Dimer Heparin Anti-Xa Level POC ABG pH ABG pH POC ABG pCO2 POC ABG pO2 ABG pO2 ABG HCO3 ABG O2 Saturation ABG Base Excess ABG Hemoglobin Oxyhemoglobin Sodium Potassium Chloride Carbon Dioxide BUN Creatinine Glucose POC Glucose 123 H Lactic Acid 2.60 H* 2.20 H* Calcium Ionized Calcium Phosphorus Magnesium Iron TIBC Ferritin Total Bilirubin Direct Bilirubin AST ALT Alkaline Phosphatase Total Creatine Kinase CK-MB (CK-2) Troponin T C-Reactive Protein Serum Total Protein Total Protein Albumin Vhevm-9-Uekksqkrd Nkenx-0-Ilvwkiwcf PEP Interpretation Triglycerides LDL Cholesterol Direct HDL Cholesterol Free T4 PTH Intact Urine WBC (Auto) Urine Creatinine Salicylates Acetaminophen Crossmatch 03/21/19 03/21/19 03/21/19 14:11 18:28 19:32 WBC RBC Hgb Hct MCV MCHC RDW Plt Count Lymph % (Auto) Davis % (Auto) Eos % (Auto) Lymph # Davis # Eos # Seg Neutrophils % Seg Neuts % (Manual) Lymphocytes % (Manual) Monocytes % (Manual) Nucleated RBC % Seg Neutrophils # Seg Neutrophils # Man Lymphocytes # (Manual) Monocytes # (Manual) PT INR D-Dimer Heparin Anti-Xa Level POC ABG pH 7.293 L ABG pH POC ABG pCO2 POC ABG pO2 ABG pO2 ABG HCO3 ABG O2 Saturation ABG Base Excess ABG Hemoglobin Oxyhemoglobin Sodium Potassium Chloride Carbon Dioxide BUN Creatinine Glucose POC Glucose 153 H Lactic Acid 2.10 H* Calcium Ionized Calcium Phosphorus Magnesium Iron TIBC Ferritin Total Bilirubin Direct Bilirubin AST ALT Alkaline Phosphatase Total Creatine Kinase CK-MB (CK-2) Troponin T C-Reactive Protein Serum Total Protein Total Protein Albumin Czyjw-5-Lffwyuaha Jurle-2-Rbojzubio PEP Interpretation Triglycerides LDL Cholesterol Direct HDL Cholesterol Free T4 PTH Intact Urine WBC (Auto) Urine Creatinine Salicylates Acetaminophen Crossmatch 03/21/19 03/22/19 03/22/19 23:38 05:08 05:51 WBC RBC Hgb Hct MCV MCHC RDW Plt Count Lymph % (Auto) Davis % (Auto) Eos % (Auto) Lymph # Davis # Eos # Seg Neutrophils % Seg Neuts % (Manual) Lymphocytes % (Manual) Monocytes % (Manual) Nucleated RBC % Seg Neutrophils # Seg Neutrophils # Man Lymphocytes # (Manual) Monocytes # (Manual) PT INR D-Dimer Heparin Anti-Xa Level POC ABG pH 7.283 L ABG pH POC ABG pCO2 POC ABG pO2 53 L ABG pO2 ABG HCO3 ABG O2 Saturation ABG Base Excess ABG Hemoglobin Oxyhemoglobin Sodium Potassium Chloride Carbon Dioxide BUN Creatinine Glucose POC Glucose 149 H 131 H Lactic Acid Calcium Ionized Calcium Phosphorus Magnesium Iron TIBC Ferritin Total Bilirubin Direct Bilirubin AST ALT Alkaline Phosphatase Total Creatine Kinase CK-MB (CK-2) Troponin T C-Reactive Protein Serum Total Protein Total Protein Albumin Cviiv-8-Nahagkvrm Jiqzf-5-Sqdydfxju PEP Interpretation Triglycerides LDL Cholesterol Direct HDL Cholesterol Free T4 PTH Intact Urine WBC (Auto) Urine Creatinine Salicylates Acetaminophen Crossmatch 03/22/19 03/22/19 03/22/19 08:00 08:00 18:19 WBC 36.7 H RBC Hgb 11.0 L Hct 33.5 L MCV MCHC RDW 15.5 H Plt Count 43 L Lymph % (Auto) Davis % (Auto) Eos % (Auto) Lymph # Davis # Eos # Seg Neutrophils % Seg Neuts % (Manual) 87.0 H Lymphocytes % (Manual) 7.0 L Monocytes % (Manual) Nucleated RBC % Seg Neutrophils # Seg Neutrophils # Man 31.9 H Lymphocytes # (Manual) Monocytes # (Manual) PT INR D-Dimer Heparin Anti-Xa Level POC ABG pH ABG pH POC ABG pCO2 46.4 H POC ABG pO2 108 H ABG pO2 ABG HCO3 ABG O2 Saturation ABG Base Excess ABG Hemoglobin Oxyhemoglobin Sodium 132 L Potassium 5.6 H Chloride 89.6 L Carbon Dioxide 20 L BUN 101 H Creatinine 7.4 H Glucose 124 H POC Glucose Lactic Acid Calcium 5.2 L* Ionized Calcium Phosphorus Magnesium Iron TIBC Ferritin Total Bilirubin 2.80 H Direct Bilirubin AST 119 H ALT 86 H Alkaline Phosphatase 245 H Total Creatine Kinase CK-MB (CK-2) Troponin T C-Reactive Protein Serum Total Protein Total Protein 5.6 L Albumin 2.5 L Xhvbs-2-Lrmbtrnic Scyuq-4-Qkichzuxl PEP Interpretation Triglycerides LDL Cholesterol Direct HDL Cholesterol Free T4 PTH Intact Urine WBC (Auto) Urine Creatinine Salicylates Acetaminophen Crossmatch 03/22/19 03/23/19 03/23/19 20:37 04:49 05:28 WBC 35.9 H RBC Hgb 10.8 L Hct 33.2 L MCV MCHC RDW 15.5 H Plt Count 49 L Lymph % (Auto) Davis % (Auto) Eos % (Auto) Lymph # Davis # Eos # Seg Neutrophils % Seg Neuts % (Manual) 81.0 H Lymphocytes % (Manual) 3.5 L Monocytes % (Manual) Nucleated RBC % Seg Neutrophils # Seg Neutrophils # Man 29.1 H Lymphocytes # (Manual) Monocytes # (Manual) 1.4 H PT INR D-Dimer Heparin Anti-Xa Level POC ABG pH 7.296 L ABG pH POC ABG pCO2 46.2 H POC ABG pO2 ABG pO2 ABG HCO3 ABG O2 Saturation ABG Base Excess ABG Hemoglobin Oxyhemoglobin Sodium 129 L Potassium 5.2 H Chloride 91.1 L Carbon Dioxide BUN 91 H Creatinine 6.6 H Glucose 190 H POC Glucose Lactic Acid Calcium 5.3 L* Ionized Calcium Phosphorus Magnesium Iron TIBC Ferritin Total Bilirubin 1.80 H Direct Bilirubin AST 80 H ALT 62 H Alkaline Phosphatase 209 H Total Creatine Kinase 9758 H CK-MB (CK-2) Troponin T C-Reactive Protein Serum Total Protein Total Protein 5.2 L Albumin 2.2 L Bpnju-7-Dyzqabfch Ojawt-8-Hmrdnqvtk PEP Interpretation Triglycerides LDL Cholesterol Direct HDL Cholesterol Free T4 PTH Intact Urine WBC (Auto) Urine Creatinine Salicylates Acetaminophen Crossmatch 03/23/19 03/23/19 03/23/19 05:28 05:31 11:33 WBC 29.7 H RBC 3.59 L Hgb 10.1 L Hct 31.1 L MCV MCHC RDW 15.4 H Plt Count 47 L Lymph % (Auto) Davis % (Auto) Eos % (Auto) Lymph # Davis # Eos # Seg Neutrophils % Seg Neuts % (Manual) 89.0 H Lymphocytes % (Manual) 6.0 L Monocytes % (Manual) Nucleated RBC % 1.0 H Seg Neutrophils # Seg Neutrophils # Man 26.4 H Lymphocytes # (Manual) Monocytes # (Manual) PT INR D-Dimer Heparin Anti-Xa Level POC ABG pH ABG pH POC ABG pCO2 POC ABG pO2 ABG pO2 ABG HCO3 ABG O2 Saturation ABG Base Excess ABG Hemoglobin Oxyhemoglobin Sodium Potassium Chloride Carbon Dioxide BUN Creatinine Glucose POC Glucose 122 H 113 H Lactic Acid Calcium Ionized Calcium Phosphorus Magnesium Iron TIBC Ferritin Total Bilirubin Direct Bilirubin AST ALT Alkaline Phosphatase Total Creatine Kinase CK-MB (CK-2) Troponin T C-Reactive Protein Serum Total Protein Total Protein Albumin Mbhdo-4-Qbkkbgwej Taycr-9-Lmmozieji PEP Interpretation Triglycerides LDL Cholesterol Direct HDL Cholesterol Free T4 PTH Intact Urine WBC (Auto) Urine Creatinine Salicylates Acetaminophen Crossmatch 03/23/19 03/24/19 03/24/19 17:47 00:00 04:50 WBC 35.0 H RBC Hgb 10.4 L Hct 32.4 L MCV MCHC RDW Plt Count 60 L Lymph % (Auto) Davis % (Auto) Eos % (Auto) Lymph # Davis # Eos # Seg Neutrophils % Seg Neuts % (Manual) 93.0 H Lymphocytes % (Manual) 5.0 L Monocytes % (Manual) Nucleated RBC % 7.0 H Seg Neutrophils # Seg Neutrophils # Man 32.6 H Lymphocytes # (Manual) Monocytes # (Manual) PT INR D-Dimer Heparin Anti-Xa Level POC ABG pH ABG pH POC ABG pCO2 POC ABG pO2 ABG pO2 ABG HCO3 ABG O2 Saturation ABG Base Excess ABG Hemoglobin Oxyhemoglobin Sodium Potassium Chloride Carbon Dioxide BUN Creatinine Glucose POC Glucose 111 H 108 H Lactic Acid Calcium Ionized Calcium Phosphorus Magnesium Iron TIBC Ferritin Total Bilirubin Direct Bilirubin AST ALT Alkaline Phosphatase Total Creatine Kinase CK-MB (CK-2) Troponin T C-Reactive Protein Serum Total Protein Total Protein Albumin Rmakc-2-Bcbpafgav Vbcjy-2-Wyzzjoppg PEP Interpretation Triglycerides LDL Cholesterol Direct HDL Cholesterol Free T4 PTH Intact Urine WBC (Auto) Urine Creatinine Salicylates Acetaminophen Crossmatch 03/24/19 03/24/19 03/24/19 04:50 05:06 12:55 WBC RBC Hgb Hct MCV MCHC RDW Plt Count Lymph % (Auto) Davis % (Auto) Eos % (Auto) Lymph # Davis # Eos # Seg Neutrophils % Seg Neuts % (Manual) Lymphocytes % (Manual) Monocytes % (Manual) Nucleated RBC % Seg Neutrophils # Seg Neutrophils # Man Lymphocytes # (Manual) Monocytes # (Manual) PT INR D-Dimer Heparin Anti-Xa Level POC ABG pH ABG pH POC ABG pCO2 POC ABG pO2 ABG pO2 ABG HCO3 ABG O2 Saturation ABG Base Excess ABG Hemoglobin Oxyhemoglobin Sodium 134 L Potassium 5.1 H Chloride 95.3 L Carbon Dioxide 21 L BUN 85 H Creatinine 6.4 H Glucose 109 H POC Glucose 112 H 110 H Lactic Acid Calcium 5.8 L* Ionized Calcium Phosphorus Magnesium Iron TIBC Ferritin Total Bilirubin Direct Bilirubin AST ALT Alkaline Phosphatase Total Creatine Kinase 5747 H CK-MB (CK-2) Troponin T C-Reactive Protein Serum Total Protein Total Protein Albumin Qjgda-7-Jwrksjdpe Aqodt-1-Kxemniqsw PEP Interpretation Triglycerides LDL Cholesterol Direct HDL Cholesterol Free T4 PTH Intact Urine WBC (Auto) Urine Creatinine Salicylates Acetaminophen Crossmatch 03/24/19 03/25/19 03/25/19 23:29 05:00 05:00 WBC RBC Hgb Hct MCV MCHC RDW Plt Count Lymph % (Auto) Davis % (Auto) Eos % (Auto) Lymph # Davis # Eos # Seg Neutrophils % Seg Neuts % (Manual) Lymphocytes % (Manual) Monocytes % (Manual) Nucleated RBC % Seg Neutrophils # Seg Neutrophils # Man Lymphocytes # (Manual) Monocytes # (Manual) PT INR D-Dimer Heparin Anti-Xa Level POC ABG pH ABG pH POC ABG pCO2 POC ABG pO2 ABG pO2 ABG HCO3 ABG O2 Saturation ABG Base Excess ABG Hemoglobin Oxyhemoglobin Sodium 133 L Potassium Chloride 94.0 L Carbon Dioxide 21 L BUN 81 H Creatinine 6.4 H Glucose POC Glucose 109 H Lactic Acid Calcium 5.5 L* Ionized Calcium Phosphorus Magnesium Iron TIBC Ferritin Total Bilirubin Direct Bilirubin AST 80 H ALT Alkaline Phosphatase 202 H Total Creatine Kinase 3589 H CK-MB (CK-2) Troponin T C-Reactive Protein Serum Total Protein Total Protein 5.3 L Albumin 2.4 L Jspdl-7-Bftsnttye Fcllw-6-Uxokubfpa PEP Interpretation Triglycerides LDL Cholesterol Direct HDL Cholesterol Free T4 PTH Intact 329.9 H Urine WBC (Auto) Urine Creatinine Salicylates Acetaminophen Crossmatch 03/25/19 03/25/19 03/26/19 05:00 06:30 04:30 WBC 23.3 H RBC 3.61 L Hgb 10.2 L Hct 31.2 L MCV MCHC RDW Plt Count 57 L Lymph % (Auto) Davis % (Auto) Eos % (Auto) Lymph # Davis # Eos # Seg Neutrophils % Seg Neuts % (Manual) 92.0 H Lymphocytes % (Manual) 6.0 L Monocytes % (Manual) Nucleated RBC % Seg Neutrophils # Seg Neutrophils # Man 21.4 H Lymphocytes # (Manual) Monocytes # (Manual) PT INR D-Dimer Heparin Anti-Xa Level POC ABG pH ABG pH 7.326 L POC ABG pCO2 POC ABG pO2 ABG pO2 109.5 H 137.4 H ABG HCO3 18.8 L 18.6 L ABG O2 Saturation ABG Base Excess -4.4 L -6.8 L ABG Hemoglobin 10.1 L 9.9 L Oxyhemoglobin Sodium Potassium Chloride Carbon Dioxide BUN Creatinine Glucose POC Glucose Lactic Acid Calcium Ionized Calcium Phosphorus Magnesium Iron TIBC Ferritin Total Bilirubin Direct Bilirubin AST ALT Alkaline Phosphatase Total Creatine Kinase CK-MB (CK-2) Troponin T C-Reactive Protein Serum Total Protein Total Protein Albumin Kyqfd-0-Wqzifglvp Gzweh-9-Ezivuboyp PEP Interpretation Triglycerides LDL Cholesterol Direct HDL Cholesterol Free T4 PTH Intact Urine WBC (Auto) Urine Creatinine Salicylates Acetaminophen Crossmatch 03/26/19 03/26/19 03/26/19 23:22 Unknown Unknown WBC 19.5 H RBC 3.44 L Hgb 9.8 L Hct 29.9 L MCV MCHC RDW Plt Count 85 L Lymph % (Auto) Davis % (Auto) Eos % (Auto) Lymph # Davis # Eos # Seg Neutrophils % Seg Neuts % (Manual) 95.0 H Lymphocytes % (Manual) 3.0 L Monocytes % (Manual) Nucleated RBC % Seg Neutrophils # Seg Neutrophils # Man 18.5 H Lymphocytes # (Manual) 0.6 L Monocytes # (Manual) PT INR D-Dimer Heparin Anti-Xa Level POC ABG pH ABG pH POC ABG pCO2 POC ABG pO2 ABG pO2 ABG HCO3 ABG O2 Saturation ABG Base Excess ABG Hemoglobin Oxyhemoglobin Sodium 135 L Potassium 5.2 H D Chloride 92.2 L Carbon Dioxide 18 L BUN 109 H Creatinine 8.5 H Glucose 117 H POC Glucose 69 L Lactic Acid Calcium 4.5 L* D Ionized Calcium Phosphorus Magnesium Iron TIBC Ferritin Total Bilirubin Direct Bilirubin AST ALT Alkaline Phosphatase Total Creatine Kinase 4527 H CK-MB (CK-2) Troponin T C-Reactive Protein Serum Total Protein Total Protein Albumin Zpsms-7-Qoctiluxb Huxtq-6-Ggstkfviq PEP Interpretation Triglycerides LDL Cholesterol Direct HDL Cholesterol Free T4 PTH Intact Urine WBC (Auto) Urine Creatinine Salicylates Acetaminophen Crossmatch 03/27/19 03/27/19 03/27/19 04:30 04:30 09:00 WBC 19.2 H RBC 3.42 L Hgb 9.9 L Hct 30.0 L MCV MCHC RDW Plt Count 84 L Lymph % (Auto) Davis % (Auto) Eos % (Auto) Lymph # Davis # Eos # Seg Neutrophils % Seg Neuts % (Manual) Lymphocytes % (Manual) Monocytes % (Manual) Nucleated RBC % Seg Neutrophils # Seg Neutrophils # Man Lymphocytes # (Manual) Monocytes # (Manual) PT INR D-Dimer Heparin Anti-Xa Level POC ABG pH ABG pH POC ABG pCO2 POC ABG pO2 ABG pO2 ABG HCO3 ABG O2 Saturation ABG Base Excess ABG Hemoglobin Oxyhemoglobin Sodium 135 L Potassium Chloride 93.5 L Carbon Dioxide BUN 84 H Creatinine 7.1 H Glucose POC Glucose Lactic Acid Calcium 5.0 L* Ionized Calcium Phosphorus Magnesium Iron TIBC Ferritin Total Bilirubin Direct Bilirubin AST 78 H ALT Alkaline Phosphatase 135 H Total Creatine Kinase 4677 H CK-MB (CK-2) Troponin T C-Reactive Protein Serum Total Protein Total Protein 4.8 L Albumin 2.3 L Ffrhn-2-Diewvpcco Dqskm-1-Asjplpjnv PEP Interpretation Triglycerides 409 H LDL Cholesterol Direct HDL Cholesterol Free T4 PTH Intact Urine WBC (Auto) Urine Creatinine Salicylates Acetaminophen Crossmatch 03/27/19 03/27/19 03/27/19 12:37 14:15 14:15 WBC RBC Hgb 9.7 L Hct 29.5 L MCV MCHC RDW Plt Count 87 L Lymph % (Auto) Davis % (Auto) Eos % (Auto) Lymph # Davis # Eos # Seg Neutrophils % Seg Neuts % (Manual) Lymphocytes % (Manual) Monocytes % (Manual) Nucleated RBC % Seg Neutrophils # Seg Neutrophils # Man Lymphocytes # (Manual) Monocytes # (Manual) PT 15.9 H INR 1.30 H D-Dimer Heparin Anti-Xa Level POC ABG pH ABG pH POC ABG pCO2 POC ABG pO2 ABG pO2 ABG HCO3 ABG O2 Saturation ABG Base Excess ABG Hemoglobin Oxyhemoglobin Sodium Potassium Chloride Carbon Dioxide BUN Creatinine Glucose POC Glucose 129 H Lactic Acid Calcium Ionized Calcium Phosphorus Magnesium Iron TIBC Ferritin Total Bilirubin Direct Bilirubin AST ALT Alkaline Phosphatase Total Creatine Kinase CK-MB (CK-2) Troponin T C-Reactive Protein Serum Total Protein Total Protein Albumin Ulszn-2-Nblmymdko Sqjuv-5-Xsiftyosc PEP Interpretation Triglycerides LDL Cholesterol Direct HDL Cholesterol Free T4 PTH Intact Urine WBC (Auto) Urine Creatinine Salicylates Acetaminophen Crossmatch 03/27/19 03/27/19 03/27/19 18:00 19:22 19:23 WBC RBC Hgb Hct MCV MCHC RDW Plt Count Lymph % (Auto) Davis % (Auto) Eos % (Auto) Lymph # Davis # Eos # Seg Neutrophils % Seg Neuts % (Manual) Lymphocytes % (Manual) Monocytes % (Manual) Nucleated RBC % Seg Neutrophils # Seg Neutrophils # Man Lymphocytes # (Manual) Monocytes # (Manual) PT INR D-Dimer Heparin Anti-Xa Level < 0.10 L POC ABG pH ABG pH POC ABG pCO2 POC ABG pO2 ABG pO2 ABG HCO3 ABG O2 Saturation ABG Base Excess ABG Hemoglobin Oxyhemoglobin Sodium Potassium Chloride Carbon Dioxide BUN Creatinine Glucose POC Glucose 121 H Lactic Acid Calcium Ionized Calcium Phosphorus Magnesium Iron TIBC Ferritin Total Bilirubin Direct Bilirubin AST ALT Alkaline Phosphatase Total Creatine Kinase 4517 H CK-MB (CK-2) Troponin T C-Reactive Protein Serum Total Protein Total Protein Albumin Kflof-7-Ddakukcdp Fbwla-6-Lzceuxvvy PEP Interpretation Triglycerides LDL Cholesterol Direct HDL Cholesterol Free T4 PTH Intact Urine WBC (Auto) Urine Creatinine Salicylates Acetaminophen Crossmatch 03/27/19 03/27/19 03/28/19 22:10 23:52 03:49 WBC RBC Hgb Hct MCV MCHC RDW Plt Count Lymph % (Auto) Davis % (Auto) Eos % (Auto) Lymph # Davis # Eos # Seg Neutrophils % Seg Neuts % (Manual) Lymphocytes % (Manual) Monocytes % (Manual) Nucleated RBC % Seg Neutrophils # Seg Neutrophils # Man Lymphocytes # (Manual) Monocytes # (Manual) PT INR D-Dimer Heparin Anti-Xa Level POC ABG pH 7.338 L ABG pH POC ABG pCO2 33.1 L POC ABG pO2 ABG pO2 ABG HCO3 ABG O2 Saturation ABG Base Excess ABG Hemoglobin Oxyhemoglobin Sodium Potassium Chloride Carbon Dioxide BUN Creatinine Glucose POC Glucose 113 H 117 H Lactic Acid Calcium Ionized Calcium Phosphorus Magnesium Iron TIBC Ferritin Total Bilirubin Direct Bilirubin AST ALT Alkaline Phosphatase Total Creatine Kinase CK-MB (CK-2) Troponin T C-Reactive Protein Serum Total Protein Total Protein Albumin Jdztf-4-Iqdojgvbf Cvfql-1-Sdhfxtbnq PEP Interpretation Triglycerides LDL Cholesterol Direct HDL Cholesterol Free T4 PTH Intact Urine WBC (Auto) Urine Creatinine Salicylates Acetaminophen Crossmatch 03/28/19 03/28/19 03/28/19 05:13 05:13 06:18 WBC RBC Hgb Hct MCV MCHC RDW Plt Count Lymph % (Auto) Davis % (Auto) Eos % (Auto) Lymph # Davis # Eos # Seg Neutrophils % Seg Neuts % (Manual) Lymphocytes % (Manual) Monocytes % (Manual) Nucleated RBC % Seg Neutrophils # Seg Neutrophils # Man Lymphocytes # (Manual) Monocytes # (Manual) PT INR D-Dimer Heparin Anti-Xa Level 0.23 L POC ABG pH ABG pH POC ABG pCO2 POC ABG pO2 ABG pO2 ABG HCO3 ABG O2 Saturation ABG Base Excess ABG Hemoglobin Oxyhemoglobin Sodium 135 L Potassium 5.5 H D Chloride 95.1 L Carbon Dioxide 16 L D BUN 129 H Creatinine 9.3 H Glucose 158 H POC Glucose 202 H Lactic Acid Calcium 4.0 L* D Ionized Calcium Phosphorus 12.40 H Magnesium Iron TIBC Ferritin Total Bilirubin Direct Bilirubin AST ALT Alkaline Phosphatase Total Creatine Kinase 4266 H CK-MB (CK-2) Troponin T C-Reactive Protein Serum Total Protein Total Protein Albumin Asqwx-4-Lpoggqbzk Vohqb-5-Rqumusswc PEP Interpretation Triglycerides LDL Cholesterol Direct HDL Cholesterol Free T4 PTH Intact Urine WBC (Auto) Urine Creatinine Salicylates Acetaminophen Crossmatch 03/28/19 03/28/19 03/28/19 08:25 10:00 12:00 WBC RBC Hgb 4.9 L* D Hct 15.4 L* D MCV MCHC RDW Plt Count Lymph % (Auto) Davis % (Auto) Eos % (Auto) Lymph # Davis # Eos # Seg Neutrophils % Seg Neuts % (Manual) Lymphocytes % (Manual) Monocytes % (Manual) Nucleated RBC % Seg Neutrophils # Seg Neutrophils # Man Lymphocytes # (Manual) Monocytes # (Manual) PT 17.9 H INR 1.52 H D-Dimer 4845.98 H Heparin Anti-Xa Level POC ABG pH ABG pH POC ABG pCO2 POC ABG pO2 ABG pO2 ABG HCO3 ABG O2 Saturation ABG Base Excess ABG Hemoglobin Oxyhemoglobin Sodium Potassium Chloride Carbon Dioxide BUN Creatinine Glucose POC Glucose Lactic Acid Calcium Ionized Calcium Phosphorus Magnesium Iron TIBC Ferritin Total Bilirubin Direct Bilirubin AST ALT Alkaline Phosphatase Total Creatine Kinase CK-MB (CK-2) Troponin T C-Reactive Protein Serum Total Protein Total Protein Albumin [id number] Fdgzg-1-Kxqpzhwti PEP Interpretation Triglycerides LDL Cholesterol Direct HDL Cholesterol Free T4 PTH Intact Urine WBC (Auto) Urine Creatinine Salicylates Acetaminophen Crossmatch See Detail 03/28/19 03/28/19 03/28/19 12:28 14:10 17:43 WBC RBC Hgb 5.9 L* Hct 18.3 L* MCV MCHC RDW Plt Count Lymph % (Auto) Davis % (Auto) Eos % (Auto) Lymph # Davis # Eos # Seg Neutrophils % Seg Neuts % (Manual) Lymphocytes % (Manual) Monocytes % (Manual) Nucleated RBC % Seg Neutrophils # Seg Neutrophils # Man Lymphocytes # (Manual) Monocytes # (Manual) PT INR D-Dimer Heparin Anti-Xa Level POC ABG pH ABG pH POC ABG pCO2 POC ABG pO2 ABG pO2 ABG HCO3 ABG O2 Saturation ABG Base Excess ABG Hemoglobin Oxyhemoglobin Sodium Potassium Chloride Carbon Dioxide BUN Creatinine Glucose POC Glucose 153 H 159 H Lactic Acid Calcium Ionized Calcium Phosphorus Magnesium Iron TIBC Ferritin Total Bilirubin Direct Bilirubin AST ALT Alkaline Phosphatase Total Creatine Kinase CK-MB (CK-2) Troponin T C-Reactive Protein Serum Total Protein Total Protein Albumin Bwsey-3-Ysqzurtfl Tnsgd-4-Iwmftjtlq PEP Interpretation Triglycerides LDL Cholesterol Direct HDL Cholesterol Free T4 PTH Intact Urine WBC (Auto) Urine Creatinine Salicylates Acetaminophen Crossmatch 03/28/19 03/28/19 03/28/19 18:10 Unknown 23:59 WBC 24.8 H RBC 3.42 L Hgb 10.2 L D Hct 31.1 L D MCV MCHC RDW 15.4 H Plt Count 54 L Lymph % (Auto) Davis % (Auto) Eos % (Auto) Lymph # Davis # Eos # Seg Neutrophils % Seg Neuts % (Manual) 91.0 H Lymphocytes % (Manual) 8.0 L Monocytes % (Manual) Nucleated RBC % Seg Neutrophils # Seg Neutrophils # Man 22.6 H Lymphocytes # (Manual) Monocytes # (Manual) PT INR D-Dimer Heparin Anti-Xa Level POC ABG pH ABG pH POC ABG pCO2 POC ABG pO2 ABG pO2 ABG HCO3 ABG O2 Saturation ABG Base Excess ABG Hemoglobin Oxyhemoglobin Sodium Potassium 5.7 H Chloride Carbon Dioxide BUN Creatinine Glucose POC Glucose 107 H Lactic Acid Calcium Ionized Calcium Phosphorus Magnesium Iron TIBC Ferritin Total Bilirubin Direct Bilirubin AST ALT Alkaline Phosphatase Total Creatine Kinase CK-MB (CK-2) Troponin T C-Reactive Protein Serum Total Protein Total Protein Albumin Rdmme-3-Sjhgrbegk Whnfj-7-Umwdqfqgs PEP Interpretation Triglycerides LDL Cholesterol Direct HDL Cholesterol Free T4 PTH Intact Urine WBC (Auto) Urine Creatinine Salicylates Acetaminophen Crossmatch 03/29/19 03/29/19 03/29/19 04:29 05:46 06:22 WBC RBC Hgb 8.6 L Hct 25.7 L MCV MCHC RDW Plt Count 93 L Lymph % (Auto) Davis % (Auto) Eos % (Auto) Lymph # Davis # Eos # Seg Neutrophils % Seg Neuts % (Manual) Lymphocytes % (Manual) Monocytes % (Manual) Nucleated RBC % Seg Neutrophils # Seg Neutrophils # Man Lymphocytes # (Manual) Monocytes # (Manual) PT INR D-Dimer Heparin Anti-Xa Level POC ABG pH ABG pH POC ABG pCO2 32.2 L POC ABG pO2 ABG pO2 ABG HCO3 ABG O2 Saturation ABG Base Excess ABG Hemoglobin Oxyhemoglobin Sodium Potassium Chloride Carbon Dioxide BUN Creatinine Glucose POC Glucose 113 H Lactic Acid Calcium Ionized Calcium Phosphorus Magnesium Iron TIBC Ferritin Total Bilirubin Direct Bilirubin AST ALT Alkaline Phosphatase Total Creatine Kinase CK-MB (CK-2) Troponin T C-Reactive Protein Serum Total Protein Total Protein Albumin Itybs-1-Qqfvvmgsb Tddfe-1-Qlrijyxem PEP Interpretation Triglycerides LDL Cholesterol Direct HDL Cholesterol Free T4 PTH Intact Urine WBC (Auto) Urine Creatinine Salicylates Acetaminophen Crossmatch 03/29/19 03/29/19 03/29/19 06:22 06:22 06:22 WBC 23.2 H RBC 2.91 L Hgb 8.6 L Hct 25.8 L MCV MCHC RDW Plt Count 91 L Lymph % (Auto) Davis % (Auto) Eos % (Auto) Lymph # Davis # Eos # Seg Neutrophils % Seg Neuts % (Manual) Lymphocytes % (Manual) Monocytes % (Manual) Nucleated RBC % Seg Neutrophils # Seg Neutrophils # Man Lymphocytes # (Manual) Monocytes # (Manual) PT INR D-Dimer Heparin Anti-Xa Level POC ABG pH ABG pH POC ABG pCO2 POC ABG pO2 ABG pO2 ABG HCO3 ABG O2 Saturation ABG Base Excess ABG Hemoglobin Oxyhemoglobin Sodium 133 L Potassium Chloride 93.8 L Carbon Dioxide 18 L BUN 109 H Creatinine 7.4 H Glucose 124 H POC Glucose Lactic Acid Calcium 4.6 L* Ionized Calcium Phosphorus Magnesium Iron TIBC Ferritin Total Bilirubin Direct Bilirubin AST ALT Alkaline Phosphatase Total Creatine Kinase 3401 H CK-MB (CK-2) Troponin T C-Reactive Protein Serum Total Protein Total Protein Albumin Xzrnq-1-Uxqeacune Mcsfo-8-Olzvzwvgz PEP Interpretation Triglycerides 309 H LDL Cholesterol Direct HDL Cholesterol Free T4 PTH Intact Urine WBC (Auto) Urine Creatinine Salicylates Acetaminophen Crossmatch 03/29/19 03/29/19 03/29/19 11:48 11:48 18:24 WBC RBC Hgb 7.8 L Hct 23.2 L MCV MCHC RDW Plt Count Lymph % (Auto) Davis % (Auto) Eos % (Auto) Lymph # Davis # Eos # Seg Neutrophils % Seg Neuts % (Manual) Lymphocytes % (Manual) Monocytes % (Manual) Nucleated RBC % Seg Neutrophils # Seg Neutrophils # Man Lymphocytes # (Manual) Monocytes # (Manual) PT 15.3 H INR 1.24 H D-Dimer Heparin Anti-Xa Level POC ABG pH ABG pH POC ABG pCO2 POC ABG pO2 ABG pO2 ABG HCO3 ABG O2 Saturation ABG Base Excess ABG Hemoglobin Oxyhemoglobin Sodium Potassium Chloride Carbon Dioxide BUN Creatinine Glucose POC Glucose 122 H Lactic Acid Calcium Ionized Calcium Phosphorus Magnesium Iron TIBC Ferritin Total Bilirubin Direct Bilirubin AST ALT Alkaline Phosphatase Total Creatine Kinase CK-MB (CK-2) Troponin T C-Reactive Protein Serum Total Protein Total Protein Albumin Ystok-2-Wdnqihsbj Fkrje-1-Jjmshahua PEP Interpretation Triglycerides LDL Cholesterol Direct HDL Cholesterol Free T4 PTH Intact Urine WBC (Auto) Urine Creatinine Salicylates Acetaminophen Crossmatch 03/30/19 03/30/19 03/30/19 00:40 04:31 05:04 WBC RBC Hgb 7.6 L Hct 23.0 L MCV MCHC RDW Plt Count Lymph % (Auto) Davis % (Auto) Eos % (Auto) Lymph # Davis # Eos # Seg Neutrophils % Seg Neuts % (Manual) Lymphocytes % (Manual) Monocytes % (Manual) Nucleated RBC % Seg Neutrophils # Seg Neutrophils # Man Lymphocytes # (Manual) Monocytes # (Manual) PT INR D-Dimer Heparin Anti-Xa Level POC ABG pH 7.346 L ABG pH POC ABG pCO2 POC ABG pO2 62 L ABG pO2 ABG HCO3 ABG O2 Saturation ABG Base Excess ABG Hemoglobin Oxyhemoglobin Sodium Potassium Chloride Carbon Dioxide BUN 79 H Creatinine 6.4 H Glucose POC Glucose Lactic Acid Calcium 6.1 L D Ionized Calcium Phosphorus Magnesium Iron TIBC Ferritin Total Bilirubin Direct Bilirubin AST ALT Alkaline Phosphatase Total Creatine Kinase CK-MB (CK-2) Troponin T C-Reactive Protein Serum Total Protein Total Protein Albumin Vjhcp-2-Mudillhou Qzpxz-1-Rfmpjtkdj PEP Interpretation Triglycerides LDL Cholesterol Direct HDL Cholesterol Free T4 PTH Intact Urine WBC (Auto) Urine Creatinine Salicylates Acetaminophen Crossmatch 03/30/19 03/30/19 03/30/19 08:45 12:09 22:43 WBC 14.3 H RBC 2.33 L Hgb 7.0 L 7.4 L Hct 21.0 L 22.3 L MCV MCHC RDW 15.6 H Plt Count 135 L Lymph % (Auto) Davis % (Auto) Eos % (Auto) Lymph # Davis # Eos # Seg Neutrophils % Seg Neuts % (Manual) Lymphocytes % (Manual) Monocytes % (Manual) Nucleated RBC % Seg Neutrophils # Seg Neutrophils # Man Lymphocytes # (Manual) Monocytes # (Manual) PT INR D-Dimer Heparin Anti-Xa Level POC ABG pH ABG pH POC ABG pCO2 POC ABG pO2 ABG pO2 ABG HCO3 ABG O2 Saturation ABG Base Excess ABG Hemoglobin Oxyhemoglobin Sodium Potassium Chloride Carbon Dioxide BUN Creatinine Glucose POC Glucose Lactic Acid Calcium Ionized Calcium 3.7 L Phosphorus Magnesium Iron TIBC Ferritin Total Bilirubin Direct Bilirubin AST ALT Alkaline Phosphatase Total Creatine Kinase CK-MB (CK-2) Troponin T C-Reactive Protein Serum Total Protein Total Protein Albumin Pirea-6-Ufcmfyons Ggemy-7-Wvxyiclzh PEP Interpretation Triglycerides LDL Cholesterol Direct HDL Cholesterol Free T4 PTH Intact Urine WBC (Auto) Urine Creatinine Salicylates Acetaminophen Crossmatch 03/30/19 03/30/19 03/31/19 23:38 Unknown 04:44 WBC 11.5 H RBC 2.40 L Hgb 7.3 L Hct 21.9 L MCV MCHC RDW 15.4 H Plt Count Lymph % (Auto) 10.6 L Davis % (Auto) Eos % (Auto) Lymph # Davis # Eos # Seg Neutrophils % 81.7 H Seg Neuts % (Manual) Lymphocytes % (Manual) Monocytes % (Manual) Nucleated RBC % Seg Neutrophils # 9.4 H Seg Neutrophils # Man Lymphocytes # (Manual) Monocytes # (Manual) PT INR D-Dimer Heparin Anti-Xa Level POC ABG pH ABG pH POC ABG pCO2 POC ABG pO2 ABG pO2 ABG HCO3 ABG O2 Saturation ABG Base Excess ABG Hemoglobin Oxyhemoglobin Sodium Potassium Chloride Carbon Dioxide BUN Creatinine Glucose POC Glucose 155 H Lactic Acid Calcium Ionized Calcium Phosphorus Magnesium Iron TIBC Ferritin Total Bilirubin Direct Bilirubin 0.4 H AST 63 H ALT Alkaline Phosphatase Total Creatine Kinase CK-MB (CK-2) Troponin T C-Reactive Protein Serum Total Protein Total Protein 4.9 L Albumin 2.2 L Agubs-1-Wrivpmwxm Ukoeu-8-Wkvlnvsmf PEP Interpretation Triglycerides LDL Cholesterol Direct HDL Cholesterol Free T4 PTH Intact Urine WBC (Auto) Urine Creatinine Salicylates Acetaminophen Crossmatch 03/31/19 03/31/19 03/31/19 04:44 05:44 08:20 WBC RBC Hgb Hct MCV MCHC RDW Plt Count Lymph % (Auto) Davis % (Auto) Eos % (Auto) Lymph # Davis # Eos # Seg Neutrophils % Seg Neuts % (Manual) Lymphocytes % (Manual) Monocytes % (Manual) Nucleated RBC % Seg Neutrophils # Seg Neutrophils # Man Lymphocytes # (Manual) Monocytes # (Manual) PT INR D-Dimer Heparin Anti-Xa Level POC ABG pH ABG pH POC ABG pCO2 53.5 H POC ABG pO2 62 L ABG pO2 ABG HCO3 ABG O2 Saturation ABG Base Excess ABG Hemoglobin Oxyhemoglobin Sodium 135 L Potassium Chloride 96.7 L Carbon Dioxide 19 L BUN 94 H Creatinine 7.8 H Glucose POC Glucose Lactic Acid Calcium 5.3 L* Ionized Calcium Phosphorus 8.20 H Magnesium Iron TIBC Ferritin Total Bilirubin Direct Bilirubin 0.4 H AST 60 H ALT Alkaline Phosphatase Total Creatine Kinase CK-MB (CK-2) Troponin T C-Reactive Protein Serum Total Protein Total Protein 4.8 L Albumin 2.1 L Yxbnj-6-Zyztbqycd Mhbax-7-Oiplhrvac PEP Interpretation Triglycerides LDL Cholesterol Direct HDL Cholesterol Free T4 PTH Intact Urine WBC (Auto) Urine Creatinine Salicylates Acetaminophen Crossmatch 03/31/19 04/01/19 04/01/19 22:14 04:27 04:27 WBC RBC 2.60 L Hgb 8.0 L Hct 24.1 L MCV MCHC RDW 15.7 H Plt Count Lymph % (Auto) 7.9 L Davis % (Auto) Eos % (Auto) Lymph # 0.7 L Davis # Eos # Seg Neutrophils % 83.6 H Seg Neuts % (Manual) Lymphocytes % (Manual) Monocytes % (Manual) Nucleated RBC % Seg Neutrophils # Seg Neutrophils # Man Lymphocytes # (Manual) Monocytes # (Manual) PT INR D-Dimer Heparin Anti-Xa Level POC ABG pH 7.286 L ABG pH POC ABG pCO2 54.7 H POC ABG pO2 179 H ABG pO2 ABG HCO3 ABG O2 Saturation ABG Base Excess ABG Hemoglobin Oxyhemoglobin Sodium Potassium Chloride Carbon Dioxide BUN 68 H Creatinine 6.6 H Glucose POC Glucose Lactic Acid Calcium 6.5 L D Ionized Calcium Phosphorus 7.30 H Magnesium Iron TIBC Ferritin Total Bilirubin Direct Bilirubin AST ALT Alkaline Phosphatase Total Creatine Kinase 1652 H CK-MB (CK-2) Troponin T C-Reactive Protein Serum Total Protein Total Protein Albumin Vkttz-7-Firadsvhx Itghi-4-Nahpvlkiy PEP Interpretation Triglycerides LDL Cholesterol Direct HDL Cholesterol Free T4 PTH Intact Urine WBC (Auto) Urine Creatinine Salicylates Acetaminophen Crossmatch 04/01/19 04/01/19 04/01/19 05:14 05:37 18:37 WBC RBC Hgb Hct MCV MCHC RDW Plt Count Lymph % (Auto) Davis % (Auto) Eos % (Auto) Lymph # Davis # Eos # Seg Neutrophils % Seg Neuts % (Manual) Lymphocytes % (Manual) Monocytes % (Manual) Nucleated RBC % Seg Neutrophils # Seg Neutrophils # Man Lymphocytes # (Manual) Monocytes # (Manual) PT INR D-Dimer Heparin Anti-Xa Level POC ABG pH 7.283 L ABG pH POC ABG pCO2 53.4 H POC ABG pO2 241 H ABG pO2 ABG HCO3 ABG O2 Saturation ABG Base Excess ABG Hemoglobin Oxyhemoglobin Sodium Potassium Chloride Carbon Dioxide BUN Creatinine Glucose POC Glucose 111 H 119 H Lactic Acid Calcium Ionized Calcium Phosphorus Magnesium Iron TIBC Ferritin Total Bilirubin Direct Bilirubin AST ALT Alkaline Phosphatase Total Creatine Kinase CK-MB (CK-2) Troponin T C-Reactive Protein Serum Total Protein Total Protein Albumin Npvje-6-Iadbbchid Jrhgj-0-Iliuwiine PEP Interpretation Triglycerides LDL Cholesterol Direct HDL Cholesterol Free T4 PTH Intact Urine WBC (Auto) Urine Creatinine Salicylates Acetaminophen Crossmatch 04/01/19 04/02/19 04/02/19 21:28 04:40 05:03 WBC RBC 2.36 L Hgb 7.2 L Hct 21.9 L MCV MCHC RDW 16.0 H Plt Count Lymph % (Auto) 10.8 L Davis % (Auto) Eos % (Auto) Lymph # 0.8 L Davis # Eos # Seg Neutrophils % 80.3 H Seg Neuts % (Manual) Lymphocytes % (Manual) Monocytes % (Manual) Nucleated RBC % Seg Neutrophils # Seg Neutrophils # Man Lymphocytes # (Manual) Monocytes # (Manual) PT INR D-Dimer Heparin Anti-Xa Level POC ABG pH 7.299 L 7.300 L ABG pH POC ABG pCO2 48.2 H 45.2 H POC ABG pO2 133 H 107 H ABG pO2 ABG HCO3 ABG O2 Saturation ABG Base Excess ABG Hemoglobin Oxyhemoglobin Sodium Potassium Chloride Carbon Dioxide BUN Creatinine Glucose POC Glucose Lactic Acid Calcium Ionized Calcium Phosphorus Magnesium Iron TIBC Ferritin Total Bilirubin Direct Bilirubin AST ALT Alkaline Phosphatase Total Creatine Kinase CK-MB (CK-2) Troponin T C-Reactive Protein Serum Total Protein Total Protein Albumin Eifnd-5-Qxgrpbrzd Ugufo-5-Ursgkmbun PEP Interpretation Triglycerides LDL Cholesterol Direct HDL Cholesterol Free T4 PTH Intact Urine WBC (Auto) Urine Creatinine Salicylates Acetaminophen Crossmatch 04/02/19 04/02/19 04/02/19 05:03 05:03 12:15 WBC RBC Hgb 7.4 L Hct 22.6 L MCV MCHC RDW Plt Count Lymph % (Auto) Davis % (Auto) Eos % (Auto) Lymph # Davis # Eos # Seg Neutrophils % Seg Neuts % (Manual) Lymphocytes % (Manual) Monocytes % (Manual) Nucleated RBC % Seg Neutrophils # Seg Neutrophils # Man Lymphocytes # (Manual) Monocytes # (Manual) PT INR D-Dimer Heparin Anti-Xa Level POC ABG pH ABG pH POC ABG pCO2 POC ABG pO2 ABG pO2 ABG HCO3 ABG O2 Saturation ABG Base Excess ABG Hemoglobin Oxyhemoglobin Sodium 136 L Potassium Chloride 97.8 L Carbon Dioxide 18 L BUN 82 H Creatinine 8.2 H Glucose POC Glucose Lactic Acid Calcium 6.7 L Ionized Calcium Phosphorus 7.50 H Magnesium Iron 26 L TIBC 138 L Ferritin 607.0 H Total Bilirubin Direct Bilirubin AST ALT Alkaline Phosphatase Total Creatine Kinase CK-MB (CK-2) Troponin T C-Reactive Protein Serum Total Protein Total Protein Albumin Mupsi-3-Pzrehoqko Yrcob-6-Tqzppszyw PEP Interpretation Triglycerides LDL Cholesterol Direct HDL Cholesterol Free T4 PTH Intact Urine WBC (Auto) Urine Creatinine Salicylates Acetaminophen Crossmatch 04/02/19 04/02/19 04/03/19 16:34 17:14 04:18 WBC RBC Hgb Hct MCV MCHC RDW Plt Count Lymph % (Auto) Davis % (Auto) Eos % (Auto) Lymph # Davis # Eos # Seg Neutrophils % Seg Neuts % (Manual) Lymphocytes % (Manual) Monocytes % (Manual) Nucleated RBC % Seg Neutrophils # Seg Neutrophils # Man Lymphocytes # (Manual) Monocytes # (Manual) PT INR D-Dimer Heparin Anti-Xa Level POC ABG pH ABG pH POC ABG pCO2 POC ABG pO2 146 H ABG pO2 ABG HCO3 ABG O2 Saturation ABG Base Excess ABG Hemoglobin Oxyhemoglobin Sodium Potassium Chloride Carbon Dioxide BUN Creatinine Glucose POC Glucose 108 H Lactic Acid Calcium Ionized Calcium Phosphorus Magnesium Iron TIBC Ferritin Total Bilirubin Direct Bilirubin AST ALT Alkaline Phosphatase Total Creatine Kinase CK-MB (CK-2) Troponin T C-Reactive Protein Serum Total Protein Total Protein Albumin Isuky-6-Eomalrecq Ulqmp-8-Ywfurfdsq PEP Interpretation Triglycerides LDL Cholesterol Direct HDL Cholesterol Free T4 PTH Intact Urine WBC (Auto) Urine Creatinine Salicylates Acetaminophen Crossmatch See Detail 04/03/19 04/03/19 04/03/19 04:25 08:30 18:24 WBC RBC 2.40 L Hgb 7.3 L Hct 21.9 L MCV MCHC RDW Plt Count Lymph % (Auto) Davis % (Auto) 7.7 H Eos % (Auto) Lymph # 0.9 L Davis # Eos # Seg Neutrophils % 74.6 H Seg Neuts % (Manual) Lymphocytes % (Manual) Monocytes % (Manual) Nucleated RBC % Seg Neutrophils # Seg Neutrophils # Man Lymphocytes # (Manual) Monocytes # (Manual) PT INR D-Dimer Heparin Anti-Xa Level POC ABG pH ABG pH POC ABG pCO2 POC ABG pO2 ABG pO2 ABG HCO3 ABG O2 Saturation ABG Base Excess ABG Hemoglobin Oxyhemoglobin Sodium 136 L Potassium Chloride 97.0 L Carbon Dioxide BUN 58 H Creatinine 7.3 H Glucose POC Glucose 106 H Lactic Acid Calcium 7.5 L Ionized Calcium Phosphorus 5.80 H D Magnesium Iron TIBC Ferritin Total Bilirubin Direct Bilirubin AST ALT Alkaline Phosphatase Total Creatine Kinase CK-MB (CK-2) Troponin T C-Reactive Protein Serum Total Protein Total Protein Albumin Gbrea-6-Bgwdlnphu Xvnqr-5-Pksbkqlua PEP Interpretation Triglycerides LDL Cholesterol Direct HDL Cholesterol Free T4 PTH Intact Urine WBC (Auto) Urine Creatinine Salicylates Acetaminophen Crossmatch 04/03/19 04/04/19 04/04/19 23:43 04:47 04:47 WBC RBC 2.72 L Hgb 8.3 L Hct 24.7 L MCV MCHC RDW 15.6 H Plt Count Lymph % (Auto) Davis % (Auto) 10.1 H Eos % (Auto) Lymph # 0.8 L Davis # Eos # Seg Neutrophils % 71.4 H Seg Neuts % (Manual) Lymphocytes % (Manual) Monocytes % (Manual) Nucleated RBC % Seg Neutrophils # Seg Neutrophils # Man Lymphocytes # (Manual) Monocytes # (Manual) PT INR D-Dimer Heparin Anti-Xa Level POC ABG pH ABG pH POC ABG pCO2 POC ABG pO2 ABG pO2 123.8 H ABG HCO3 ABG O2 Saturation ABG Base Excess -3.0 L ABG Hemoglobin 7.9 L Oxyhemoglobin Sodium 134 L Potassium Chloride 97.9 L Carbon Dioxide BUN 64 H Creatinine 8.1 H Glucose POC Glucose Lactic Acid Calcium 7.2 L Ionized Calcium Phosphorus Magnesium Iron TIBC Ferritin Total Bilirubin Direct Bilirubin AST ALT Alkaline Phosphatase Total Creatine Kinase CK-MB (CK-2) Troponin T C-Reactive Protein Serum Total Protein Total Protein Albumin Xeadt-7-Trcufysmq Rgpjz-3-Jxtoarbkx PEP Interpretation Triglycerides LDL Cholesterol Direct HDL Cholesterol Free T4 PTH Intact Urine WBC (Auto) Urine Creatinine Salicylates Acetaminophen Crossmatch 04/04/19 04/04/19 04/04/19 06:07 13:40 18:18 WBC RBC Hgb Hct MCV MCHC RDW Plt Count Lymph % (Auto) Davis % (Auto) Eos % (Auto) Lymph # Davis # Eos # Seg Neutrophils % Seg Neuts % (Manual) Lymphocytes % (Manual) Monocytes % (Manual) Nucleated RBC % Seg Neutrophils # Seg Neutrophils # Man Lymphocytes # (Manual) Monocytes # (Manual) PT INR D-Dimer Heparin Anti-Xa Level POC ABG pH ABG pH POC ABG pCO2 POC ABG pO2 ABG pO2 95.9 H ABG HCO3 ABG O2 Saturation ABG Base Excess -3.0 L ABG Hemoglobin 8.5 L Oxyhemoglobin Sodium Potassium Chloride Carbon Dioxide BUN Creatinine Glucose POC Glucose 107 H 107 H Lactic Acid Calcium Ionized Calcium Phosphorus Magnesium Iron TIBC Ferritin Total Bilirubin Direct Bilirubin AST ALT Alkaline Phosphatase Total Creatine Kinase CK-MB (CK-2) Troponin T C-Reactive Protein Serum Total Protein Total Protein Albumin Pqgxn-4-Cmxbgkljs Phjgw-6-Ycfyjjvky PEP Interpretation Triglycerides LDL Cholesterol Direct HDL Cholesterol Free T4 PTH Intact Urine WBC (Auto) Urine Creatinine Salicylates Acetaminophen Crossmatch 04/04/19 04/05/19 04/05/19 21:22 04:09 04:09 WBC RBC 2.76 L Hgb 8.4 L Hct 25.4 L MCV MCHC RDW 15.8 H Plt Count 133 L Lymph % (Auto) Davis % (Auto) 9.6 H Eos % (Auto) Lymph # 0.7 L Davis # Eos # Seg Neutrophils % 72.6 H Seg Neuts % (Manual) Lymphocytes % (Manual) Monocytes % (Manual) Nucleated RBC % Seg Neutrophils # Seg Neutrophils # Man Lymphocytes # (Manual) Monocytes # (Manual) PT INR D-Dimer Heparin Anti-Xa Level POC ABG pH ABG pH POC ABG pCO2 47.2 H POC ABG pO2 137 H ABG pO2 ABG HCO3 ABG O2 Saturation ABG Base Excess ABG Hemoglobin Oxyhemoglobin Sodium 136 L Potassium Chloride Carbon Dioxide BUN 46 H Creatinine 6.7 H Glucose POC Glucose Lactic Acid Calcium 7.7 L Ionized Calcium Phosphorus Magnesium Iron TIBC Ferritin Total Bilirubin Direct Bilirubin AST ALT Alkaline Phosphatase Total Creatine Kinase CK-MB (CK-2) Troponin T C-Reactive Protein Serum Total Protein Total Protein Albumin Rzoja-8-Pjfcurqlc Sozjv-8-Vaexvwbxm PEP Interpretation Triglycerides LDL Cholesterol Direct HDL Cholesterol Free T4 PTH Intact Urine WBC (Auto) Urine Creatinine Salicylates Acetaminophen Crossmatch 04/05/19 04/05/19 04/05/19 05:28 06:14 16:50 WBC RBC Hgb Hct MCV MCHC RDW Plt Count Lymph % (Auto) Davis % (Auto) Eos % (Auto) Lymph # Davis # Eos # Seg Neutrophils % Seg Neuts % (Manual) Lymphocytes % (Manual) Monocytes % (Manual) Nucleated RBC % Seg Neutrophils # Seg Neutrophils # Man Lymphocytes # (Manual) Monocytes # (Manual) PT INR D-Dimer Heparin Anti-Xa Level POC ABG pH ABG pH POC ABG pCO2 POC ABG pO2 67 L ABG pO2 ABG HCO3 ABG O2 Saturation ABG Base Excess ABG Hemoglobin Oxyhemoglobin Sodium Potassium Chloride Carbon Dioxide BUN Creatinine Glucose POC Glucose 108 H Lactic Acid Calcium Ionized Calcium Phosphorus Magnesium Iron TIBC Ferritin Total Bilirubin Direct Bilirubin AST ALT Alkaline Phosphatase Total Creatine Kinase CK-MB (CK-2) Troponin T C-Reactive Protein Serum Total Protein Total Protein Albumin Niomy-0-Ewdgdqntq Bpubl-7-Qiogdqonj PEP Interpretation Triglycerides LDL Cholesterol Direct HDL Cholesterol Free T4 PTH Intact Urine WBC (Auto) 40.0 H Urine Creatinine Salicylates Acetaminophen Crossmatch 04/05/19 04/06/19 04/06/19 17:22 00:13 04:44 WBC RBC 2.48 L Hgb 7.5 L Hct 22.9 L MCV MCHC RDW 16.0 H Plt Count 107 L Lymph % (Auto) Davis % (Auto) 10.7 H Eos % (Auto) Lymph # 1.0 L Davis # Eos # Seg Neutrophils % Seg Neuts % (Manual) Lymphocytes % (Manual) Monocytes % (Manual) Nucleated RBC % Seg Neutrophils # Seg Neutrophils # Man Lymphocytes # (Manual) Monocytes # (Manual) PT INR D-Dimer Heparin Anti-Xa Level POC ABG pH ABG pH POC ABG pCO2 POC ABG pO2 ABG pO2 ABG HCO3 ABG O2 Saturation ABG Base Excess ABG Hemoglobin Oxyhemoglobin Sodium Potassium Chloride Carbon Dioxide BUN Creatinine Glucose POC Glucose 118 H 138 H Lactic Acid Calcium Ionized Calcium Phosphorus Magnesium Iron TIBC Ferritin Total Bilirubin Direct Bilirubin AST ALT Alkaline Phosphatase Total Creatine Kinase CK-MB (CK-2) Troponin T C-Reactive Protein Serum Total Protein Total Protein Albumin Aocfl-0-Oiofdxyzp Hbxor-4-Jtorbuzwi PEP Interpretation Triglycerides LDL Cholesterol Direct HDL Cholesterol Free T4 PTH Intact Urine WBC (Auto) Urine Creatinine Salicylates Acetaminophen Crossmatch 04/06/19 04/06/19 04/06/19 04:44 05:20 05:23 WBC RBC Hgb Hct MCV MCHC RDW Plt Count Lymph % (Auto) Davis % (Auto) Eos % (Auto) Lymph # Davis # Eos # Seg Neutrophils % Seg Neuts % (Manual) Lymphocytes % (Manual) Monocytes % (Manual) Nucleated RBC % Seg Neutrophils # Seg Neutrophils # Man Lymphocytes # (Manual) Monocytes # (Manual) PT INR D-Dimer Heparin Anti-Xa Level POC ABG pH ABG pH POC ABG pCO2 POC ABG pO2 ABG pO2 104.0 H ABG HCO3 ABG O2 Saturation ABG Base Excess -2.1 L ABG Hemoglobin 7.3 L Oxyhemoglobin Sodium Potassium Chloride Carbon Dioxide BUN 64 H Creatinine 8.2 H Glucose 103 H POC Glucose 118 H Lactic Acid Calcium 7.3 L Ionized Calcium Phosphorus Magnesium Iron TIBC Ferritin Total Bilirubin Direct Bilirubin AST ALT Alkaline Phosphatase Total Creatine Kinase CK-MB (CK-2) Troponin T C-Reactive Protein Serum Total Protein Total Protein Albumin Rirrk-6-Mzpjdoecx Tsyvn-6-Bmmhmvtst PEP Interpretation Triglycerides LDL Cholesterol Direct HDL Cholesterol Free T4 PTH Intact Urine WBC (Auto) Urine Creatinine Salicylates Acetaminophen Crossmatch 04/06/19 04/07/19 04/07/19 12:02 05:40 05:40 WBC RBC 2.59 L Hgb 7.9 L Hct 23.8 L MCV MCHC RDW 15.8 H Plt Count 89 L Lymph % (Auto) Davis % (Auto) 10.3 H Eos % (Auto) Lymph # 1.1 L Davis # Eos # Seg Neutrophils % Seg Neuts % (Manual) Lymphocytes % (Manual) Monocytes % (Manual) Nucleated RBC % Seg Neutrophils # Seg Neutrophils # Man Lymphocytes # (Manual) Monocytes # (Manual) PT INR D-Dimer Heparin Anti-Xa Level POC ABG pH ABG pH POC ABG pCO2 POC ABG pO2 ABG pO2 ABG HCO3 ABG O2 Saturation ABG Base Excess ABG Hemoglobin Oxyhemoglobin Sodium 136 L Potassium 3.5 L Chloride Carbon Dioxide BUN 46 H Creatinine 6.2 H Glucose POC Glucose 108 H Lactic Acid Calcium 7.9 L Ionized Calcium Phosphorus Magnesium Iron TIBC Ferritin Total Bilirubin Direct Bilirubin AST ALT Alkaline Phosphatase Total Creatine Kinase CK-MB (CK-2) Troponin T C-Reactive Protein Serum Total Protein Total Protein Albumin Lbmam-7-Ikxfkzikj Ccwfo-7-Kcmzhlaiv PEP Interpretation Triglycerides LDL Cholesterol Direct HDL Cholesterol Free T4 PTH Intact Urine WBC (Auto) Urine Creatinine Salicylates Acetaminophen Crossmatch 04/07/19 04/09/19 04/09/19 12:57 04:28 04:28 WBC RBC 2.85 L Hgb 8.7 L Hct 26.2 L MCV MCHC RDW 15.6 H Plt Count Lymph % (Auto) Davis % (Auto) 10.4 H Eos % (Auto) Lymph # 1.0 L Davis # Eos # Seg Neutrophils % 73.3 H Seg Neuts % (Manual) Lymphocytes % (Manual) Monocytes % (Manual) Nucleated RBC % Seg Neutrophils # Seg Neutrophils # Man Lymphocytes # (Manual) Monocytes # (Manual) PT INR D-Dimer Heparin Anti-Xa Level POC ABG pH ABG pH POC ABG pCO2 POC ABG pO2 107 H ABG pO2 ABG HCO3 ABG O2 Saturation ABG Base Excess ABG Hemoglobin Oxyhemoglobin Sodium Potassium 3.5 L Chloride 97.8 L Carbon Dioxide BUN 62 H Creatinine 8.1 H Glucose POC Glucose Lactic Acid Calcium 8.2 L Ionized Calcium Phosphorus 5.10 H Magnesium Iron TIBC Ferritin Total Bilirubin Direct Bilirubin AST ALT Alkaline Phosphatase Total Creatine Kinase CK-MB (CK-2) Troponin T C-Reactive Protein Serum Total Protein Total Protein Albumin Ufkkn-9-Cyfnkmlqz Trjhm-4-Ifgihefvn PEP Interpretation Triglycerides LDL Cholesterol Direct HDL Cholesterol Free T4 PTH Intact Urine WBC (Auto) Urine Creatinine Salicylates Acetaminophen Crossmatch 04/10/19 04/11/19 04/11/19 18:15 00:25 04:16 WBC 11.5 H RBC 2.91 L Hgb 8.9 L Hct 27.6 L MCV 95 H MCHC RDW 17.5 H Plt Count Lymph % (Auto) Davis % (Auto) Eos % (Auto) Lymph # Davis # Eos # Seg Neutrophils % Seg Neuts % (Manual) 71.0 H Lymphocytes % (Manual) Monocytes % (Manual) 8.0 H Nucleated RBC % Seg Neutrophils # Seg Neutrophils # Man 8.2 H Lymphocytes # (Manual) Monocytes # (Manual) 0.9 H PT INR D-Dimer Heparin Anti-Xa Level POC ABG pH ABG pH POC ABG pCO2 POC ABG pO2 ABG pO2 ABG HCO3 ABG O2 Saturation ABG Base Excess ABG Hemoglobin Oxyhemoglobin Sodium Potassium Chloride Carbon Dioxide BUN Creatinine Glucose POC Glucose 109 H 114 H Lactic Acid Calcium Ionized Calcium Phosphorus Magnesium Iron TIBC Ferritin Total Bilirubin Direct Bilirubin AST ALT Alkaline Phosphatase Total Creatine Kinase CK-MB (CK-2) Troponin T C-Reactive Protein Serum Total Protein Total Protein Albumin Vnxsb-8-Ulhxkchmg Zwhij-4-Ugnrrkcsv PEP Interpretation Triglycerides LDL Cholesterol Direct HDL Cholesterol Free T4 PTH Intact Urine WBC (Auto) Urine Creatinine Salicylates Acetaminophen Crossmatch 04/11/19 04/11/19 04/11/19 06:47 09:21 12:15 WBC RBC Hgb Hct MCV MCHC RDW Plt Count Lymph % (Auto) Davis % (Auto) Eos % (Auto) Lymph # Davis # Eos # Seg Neutrophils % Seg Neuts % (Manual) Lymphocytes % (Manual) Monocytes % (Manual) Nucleated RBC % Seg Neutrophils # Seg Neutrophils # Man Lymphocytes # (Manual) Monocytes # (Manual) PT INR D-Dimer Heparin Anti-Xa Level POC ABG pH ABG pH POC ABG pCO2 POC ABG pO2 ABG pO2 ABG HCO3 ABG O2 Saturation ABG Base Excess ABG Hemoglobin Oxyhemoglobin Sodium Potassium 3.5 L Chloride Carbon Dioxide BUN 45 H Creatinine 6.0 H Glucose 113 H POC Glucose 106 H 109 H Lactic Acid Calcium Ionized Calcium Phosphorus Magnesium Iron TIBC Ferritin Total Bilirubin Direct Bilirubin AST ALT Alkaline Phosphatase Total Creatine Kinase CK-MB (CK-2) Troponin T C-Reactive Protein Serum Total Protein Total Protein Albumin Ldejm-1-Vwjlrteyy Hnzfy-9-Wfmevoeik PEP Interpretation Triglycerides LDL Cholesterol Direct HDL Cholesterol Free T4 PTH Intact Urine WBC (Auto) Urine Creatinine Salicylates Acetaminophen Crossmatch 04/11/19 04/12/19 04/12/19 18:42 12:13 23:52 WBC RBC Hgb Hct MCV MCHC RDW Plt Count Lymph % (Auto) Davis % (Auto) Eos % (Auto) Lymph # Davis # Eos # Seg Neutrophils % Seg Neuts % (Manual) Lymphocytes % (Manual) Monocytes % (Manual) Nucleated RBC % Seg Neutrophils # Seg Neutrophils # Man Lymphocytes # (Manual) Monocytes # (Manual) PT INR D-Dimer Heparin Anti-Xa Level POC ABG pH ABG pH POC ABG pCO2 POC ABG pO2 ABG pO2 ABG HCO3 ABG O2 Saturation ABG Base Excess ABG Hemoglobin Oxyhemoglobin Sodium Potassium Chloride Carbon Dioxide BUN Creatinine Glucose POC Glucose 107 H 115 H 124 H Lactic Acid Calcium Ionized Calcium Phosphorus Magnesium Iron TIBC Ferritin Total Bilirubin Direct Bilirubin AST ALT Alkaline Phosphatase Total Creatine Kinase CK-MB (CK-2) Troponin T C-Reactive Protein Serum Total Protein Total Protein Albumin Rvbzv-2-Nfyrbbnlk Gybmt-0-Khdyrfmes PEP Interpretation Triglycerides LDL Cholesterol Direct HDL Cholesterol Free T4 PTH Intact Urine WBC (Auto) Urine Creatinine Salicylates Acetaminophen Crossmatch 04/13/19 04/13/19 04/13/19 05:00 05:00 05:47 WBC 11.7 H RBC 2.97 L Hgb 8.8 L Hct 27.3 L MCV MCHC RDW 16.1 H Plt Count Lymph % (Auto) 9.5 L Davis % (Auto) 9.9 H Eos % (Auto) Lymph # 1.1 L Davis # 1.2 H Eos # Seg Neutrophils % 78.6 H Seg Neuts % (Manual) Lymphocytes % (Manual) Monocytes % (Manual) Nucleated RBC % Seg Neutrophils # 9.2 H Seg Neutrophils # Man Lymphocytes # (Manual) Monocytes # (Manual) PT INR D-Dimer Heparin Anti-Xa Level POC ABG pH ABG pH POC ABG pCO2 POC ABG pO2 ABG pO2 ABG HCO3 ABG O2 Saturation ABG Base Excess ABG Hemoglobin Oxyhemoglobin Sodium Potassium 3.5 L Chloride Carbon Dioxide BUN 42 H Creatinine 4.6 H Glucose 106 H POC Glucose 107 H Lactic Acid Calcium 10.6 H D Ionized Calcium Phosphorus 5.90 H Magnesium Iron TIBC Ferritin Total Bilirubin Direct Bilirubin AST ALT Alkaline Phosphatase Total Creatine Kinase CK-MB (CK-2) Troponin T C-Reactive Protein Serum Total Protein Total Protein 5.8 L Albumin 2.5 L Duihn-5-Unmzolxku Rodol-2-Vlrepgbtr PEP Interpretation Triglycerides LDL Cholesterol Direct HDL Cholesterol Free T4 PTH Intact Urine WBC (Auto) Urine Creatinine Salicylates Acetaminophen Crossmatch 04/13/19 04/14/19 04/14/19 17:32 00:00 03:55 WBC RBC Hgb Hct MCV MCHC RDW Plt Count Lymph % (Auto) Davis % (Auto) Eos % (Auto) Lymph # Davis # Eos # Seg Neutrophils % Seg Neuts % (Manual) Lymphocytes % (Manual) Monocytes % (Manual) Nucleated RBC % Seg Neutrophils # Seg Neutrophils # Man Lymphocytes # (Manual) Monocytes # (Manual) PT INR D-Dimer Heparin Anti-Xa Level POC ABG pH ABG pH POC ABG pCO2 POC ABG pO2 ABG pO2 ABG HCO3 ABG O2 Saturation ABG Base Excess ABG Hemoglobin Oxyhemoglobin Sodium Potassium 3.0 L Chloride Carbon Dioxide BUN 30 H Creatinine 3.1 H Glucose POC Glucose 112 H 120 H Lactic Acid Calcium 10.8 H Ionized Calcium Phosphorus Magnesium Iron TIBC Ferritin Total Bilirubin Direct Bilirubin AST ALT Alkaline Phosphatase Total Creatine Kinase CK-MB (CK-2) Troponin T C-Reactive Protein Serum Total Protein Total Protein Albumin Nkwrj-0-Dvqxahdoj Aanlr-2-Vrsvuejck PEP Interpretation Triglycerides LDL Cholesterol Direct HDL Cholesterol Free T4 PTH Intact Urine WBC (Auto) Urine Creatinine Salicylates Acetaminophen Crossmatch 04/14/19 04/14/19 04/15/19 11:56 23:28 05:11 WBC 13.0 H RBC 2.93 L Hgb 8.6 L Hct 26.5 L MCV MCHC RDW 16.5 H Plt Count Lymph % (Auto) 12.2 L Davis % (Auto) 9.1 H Eos % (Auto) Lymph # Davis # 1.2 H Eos # Seg Neutrophils % 77.6 H Seg Neuts % (Manual) Lymphocytes % (Manual) Monocytes % (Manual) Nucleated RBC % Seg Neutrophils # 10.1 H Seg Neutrophils # Man Lymphocytes # (Manual) Monocytes # (Manual) PT INR D-Dimer Heparin Anti-Xa Level POC ABG pH ABG pH POC ABG pCO2 POC ABG pO2 ABG pO2 ABG HCO3 ABG O2 Saturation ABG Base Excess ABG Hemoglobin Oxyhemoglobin Sodium Potassium Chloride Carbon Dioxide BUN Creatinine Glucose POC Glucose 109 H 112 H Lactic Acid Calcium Ionized Calcium Phosphorus Magnesium Iron TIBC Ferritin Total Bilirubin Direct Bilirubin AST ALT Alkaline Phosphatase Total Creatine Kinase CK-MB (CK-2) Troponin T C-Reactive Protein Serum Total Protein Total Protein Albumin Uyhlb-3-Obyjpgwul Cneno-5-Xtgwjdzuf PEP Interpretation Triglycerides LDL Cholesterol Direct HDL Cholesterol Free T4 PTH Intact Urine WBC (Auto) Urine Creatinine Salicylates Acetaminophen Crossmatch 04/15/19 04/15/19 04/15/19 05:11 05:31 18:03 WBC RBC Hgb Hct MCV MCHC RDW Plt Count Lymph % (Auto) Davis % (Auto) Eos % (Auto) Lymph # Davis # Eos # Seg Neutrophils % Seg Neuts % (Manual) Lymphocytes % (Manual) Monocytes % (Manual) Nucleated RBC % Seg Neutrophils # Seg Neutrophils # Man Lymphocytes # (Manual) Monocytes # (Manual) PT INR D-Dimer Heparin Anti-Xa Level POC ABG pH ABG pH POC ABG pCO2 POC ABG pO2 ABG pO2 ABG HCO3 ABG O2 Saturation ABG Base Excess ABG Hemoglobin Oxyhemoglobin Sodium Potassium 3.2 L Chloride Carbon Dioxide BUN 44 H Creatinine 3.6 H Glucose 106 H POC Glucose 110 H 121 H Lactic Acid Calcium 12.0 H Ionized Calcium Phosphorus 5.00 H Magnesium Iron TIBC Ferritin Total Bilirubin Direct Bilirubin AST ALT Alkaline Phosphatase Total Creatine Kinase CK-MB (CK-2) Troponin T C-Reactive Protein Serum Total Protein Total Protein Albumin Mmuvh-9-Eqnylsdig Sqiqj-9-Unxiooucu PEP Interpretation Triglycerides LDL Cholesterol Direct HDL Cholesterol Free T4 PTH Intact Urine WBC (Auto) Urine Creatinine Salicylates Acetaminophen Crossmatch 04/16/19 04/16/19 04/17/19 05:07 05:07 04:15 WBC 12.6 H RBC 3.12 L Hgb 9.0 L Hct 28.2 L MCV MCHC RDW 16.6 H Plt Count Lymph % (Auto) 10.3 L Davis % (Auto) 9.8 H Eos % (Auto) Lymph # Davis # 1.2 H Eos # Seg Neutrophils % 78.2 H Seg Neuts % (Manual) Lymphocytes % (Manual) Monocytes % (Manual) Nucleated RBC % Seg Neutrophils # 9.9 H Seg Neutrophils # Man Lymphocytes # (Manual) Monocytes # (Manual) PT INR D-Dimer Heparin Anti-Xa Level POC ABG pH ABG pH POC ABG pCO2 POC ABG pO2 ABG pO2 ABG HCO3 ABG O2 Saturation ABG Base Excess ABG Hemoglobin Oxyhemoglobin Sodium 147 H 150 H Potassium 3.5 L 3.1 L Chloride Carbon Dioxide 32 H BUN 54 H 65 H Creatinine 3.8 H 4.0 H Glucose 102 H 107 H POC Glucose Lactic Acid Calcium 11.7 H 12.0 H Ionized Calcium Phosphorus 5.40 H Magnesium Iron TIBC Ferritin Total Bilirubin Direct Bilirubin AST ALT Alkaline Phosphatase Total Creatine Kinase CK-MB (CK-2) Troponin T C-Reactive Protein 7.10 H Serum Total Protein Total Protein Albumin Iskng-4-Qrbrganwh Hhmlm-5-Rnododixs PEP Interpretation Triglycerides LDL Cholesterol Direct HDL Cholesterol Free T4 PTH Intact Urine WBC (Auto) Urine Creatinine Salicylates Acetaminophen Crossmatch 04/17/19 04/17/19 04/17/19 04:15 06:05 12:49 WBC 15.8 H RBC 3.32 L Hgb 9.5 L Hct 29.9 L MCV MCHC RDW 16.9 H Plt Count Lymph % (Auto) 12.6 L Davis % (Auto) 11.1 H Eos % (Auto) Lymph # Davis # 1.7 H Eos # Seg Neutrophils % 74.7 H Seg Neuts % (Manual) Lymphocytes % (Manual) Monocytes % (Manual) Nucleated RBC % Seg Neutrophils # 11.8 H Seg Neutrophils # Man Lymphocytes # (Manual) Monocytes # (Manual) PT INR D-Dimer Heparin Anti-Xa Level POC ABG pH ABG pH POC ABG pCO2 POC ABG pO2 ABG pO2 ABG HCO3 ABG O2 Saturation ABG Base Excess ABG Hemoglobin Oxyhemoglobin Sodium Potassium Chloride Carbon Dioxide BUN Creatinine Glucose POC Glucose 111 H 108 H Lactic Acid Calcium Ionized Calcium Phosphorus Magnesium Iron TIBC Ferritin Total Bilirubin Direct Bilirubin AST ALT Alkaline Phosphatase Total Creatine Kinase CK-MB (CK-2) Troponin T C-Reactive Protein Serum Total Protein Total Protein Albumin Uqoea-6-Xhsfmrigr Urguj-6-Bzklrlloz PEP Interpretation Triglycerides LDL Cholesterol Direct HDL Cholesterol Free T4 PTH Intact Urine WBC (Auto) Urine Creatinine Salicylates Acetaminophen Crossmatch 04/18/19 04/18/19 04/18/19 00:23 04:41 04:41 WBC 19.4 H RBC 3.03 L Hgb 8.6 L Hct 27.5 L MCV MCHC 31 L RDW 16.9 H Plt Count Lymph % (Auto) Davis % (Auto) Eos % (Auto) Lymph # Davis # Eos # Seg Neutrophils % Seg Neuts % (Manual) Lymphocytes % (Manual) Monocytes % (Manual) Nucleated RBC % Seg Neutrophils # Seg Neutrophils # Man Lymphocytes # (Manual) Monocytes # (Manual) PT INR D-Dimer Heparin Anti-Xa Level POC ABG pH ABG pH POC ABG pCO2 POC ABG pO2 ABG pO2 ABG HCO3 ABG O2 Saturation ABG Base Excess ABG Hemoglobin Oxyhemoglobin Sodium 152 H Potassium 3.0 L Chloride Carbon Dioxide BUN 80 H Creatinine 4.3 H Glucose 103 H POC Glucose 115 H Lactic Acid Calcium 11.4 H Ionized Calcium Phosphorus Magnesium Iron TIBC Ferritin Total Bilirubin Direct Bilirubin AST ALT Alkaline Phosphatase Total Creatine Kinase CK-MB (CK-2) Troponin T C-Reactive Protein Serum Total Protein Total Protein Albumin Wccif-6-Pipfccach Kozbm-8-Gtfplyard PEP Interpretation Triglycerides LDL Cholesterol Direct HDL Cholesterol Free T4 PTH Intact Urine WBC (Auto) Urine Creatinine Salicylates Acetaminophen Crossmatch 04/18/19 04/18/19 04/18/19 06:17 12:16 18:10 WBC RBC Hgb Hct MCV MCHC RDW Plt Count Lymph % (Auto) Davis % (Auto) Eos % (Auto) Lymph # Davis # Eos # Seg Neutrophils % Seg Neuts % (Manual) Lymphocytes % (Manual) Monocytes % (Manual) Nucleated RBC % Seg Neutrophils # Seg Neutrophils # Man Lymphocytes # (Manual) Monocytes # (Manual) PT INR D-Dimer Heparin Anti-Xa Level POC ABG pH ABG pH POC ABG pCO2 POC ABG pO2 ABG pO2 ABG HCO3 ABG O2 Saturation ABG Base Excess ABG Hemoglobin Oxyhemoglobin Sodium Potassium Chloride Carbon Dioxide BUN Creatinine Glucose POC Glucose 124 H 119 H 111 H Lactic Acid Calcium Ionized Calcium Phosphorus Magnesium Iron TIBC Ferritin Total Bilirubin Direct Bilirubin AST ALT Alkaline Phosphatase Total Creatine Kinase CK-MB (CK-2) Troponin T C-Reactive Protein Serum Total Protein Total Protein Albumin Xducl-8-Murkxpkdf Xswnp-0-Rgakavfec PEP Interpretation Triglycerides LDL Cholesterol Direct HDL Cholesterol Free T4 PTH Intact Urine WBC (Auto) Urine Creatinine Salicylates Acetaminophen Crossmatch 04/19/19 04/19/19 04/20/19 03:49 05:27 09:09 WBC RBC Hgb Hct MCV MCHC RDW Plt Count Lymph % (Auto) Davis % (Auto) Eos % (Auto) Lymph # Davis # Eos # Seg Neutrophils % Seg Neuts % (Manual) Lymphocytes % (Manual) Monocytes % (Manual) Nucleated RBC % Seg Neutrophils # Seg Neutrophils # Man Lymphocytes # (Manual) Monocytes # (Manual) PT INR D-Dimer Heparin Anti-Xa Level POC ABG pH ABG pH POC ABG pCO2 POC ABG pO2 ABG pO2 ABG HCO3 ABG O2 Saturation ABG Base Excess ABG Hemoglobin Oxyhemoglobin Sodium 147 H 150 H Potassium 3.3 L Chloride 108.9 H Carbon Dioxide BUN 45 H 70 H Creatinine 2.9 H 4.1 H Glucose 105 H POC Glucose 124 H Lactic Acid Calcium 10.6 H 11.6 H Ionized Calcium Phosphorus Magnesium Iron TIBC Ferritin Total Bilirubin Direct Bilirubin AST ALT Alkaline Phosphatase Total Creatine Kinase CK-MB (CK-2) Troponin T C-Reactive Protein Serum Total Protein Total Protein Albumin Vnkyc-3-Cbbhmyzhp Wenxr-0-Xpbpoewup PEP Interpretation Triglycerides LDL Cholesterol Direct HDL Cholesterol Free T4 PTH Intact Urine WBC (Auto) Urine Creatinine Salicylates Acetaminophen Crossmatch 04/20/19 04/20/19 04/21/19 12:29 18:45 01:34 WBC RBC Hgb Hct MCV MCHC RDW Plt Count Lymph % (Auto) Davis % (Auto) Eos % (Auto) Lymph # Davis # Eos # Seg Neutrophils % Seg Neuts % (Manual) Lymphocytes % (Manual) Monocytes % (Manual) Nucleated RBC % Seg Neutrophils # Seg Neutrophils # Man Lymphocytes # (Manual) Monocytes # (Manual) PT INR D-Dimer Heparin Anti-Xa Level POC ABG pH ABG pH POC ABG pCO2 POC ABG pO2 ABG pO2 ABG HCO3 ABG O2 Saturation ABG Base Excess ABG Hemoglobin Oxyhemoglobin Sodium Potassium Chloride Carbon Dioxide BUN 40 H Creatinine 2.6 H Glucose 104 H POC Glucose 131 H 134 H Lactic Acid Calcium 11.0 H Ionized Calcium Phosphorus Magnesium Iron TIBC Ferritin Total Bilirubin Direct Bilirubin AST ALT Alkaline Phosphatase Total Creatine Kinase CK-MB (CK-2) Troponin T C-Reactive Protein Serum Total Protein Total Protein Albumin Btwrh-1-Ijwngxmeb Lgyeq-3-Wjfszqmku PEP Interpretation Triglycerides LDL Cholesterol Direct HDL Cholesterol Free T4 PTH Intact Urine WBC (Auto) Urine Creatinine Salicylates Acetaminophen Crossmatch 04/21/19 04/21/19 04/22/19 04:22 04:22 04:24 WBC 14.2 H 14.3 H RBC 3.02 L 3.57 L Hgb 8.7 L 10.1 L Hct 27.2 L 32.1 L MCV MCHC RDW 16.7 H 17.2 H Plt Count Lymph % (Auto) Davis % (Auto) Eos % (Auto) Lymph # Davis # Eos # Seg Neutrophils % Seg Neuts % (Manual) Lymphocytes % (Manual) Monocytes % (Manual) Nucleated RBC % Seg Neutrophils # Seg Neutrophils # Man Lymphocytes # (Manual) Monocytes # (Manual) PT INR D-Dimer Heparin Anti-Xa Level POC ABG pH ABG pH POC ABG pCO2 POC ABG pO2 ABG pO2 ABG HCO3 ABG O2 Saturation ABG Base Excess ABG Hemoglobin Oxyhemoglobin Sodium Potassium Chloride Carbon Dioxide BUN Creatinine Glucose POC Glucose Lactic Acid Calcium Ionized Calcium Phosphorus Magnesium Iron TIBC Ferritin Total Bilirubin Direct Bilirubin AST ALT Alkaline Phosphatase Total Creatine Kinase CK-MB (CK-2) Troponin T C-Reactive Protein Serum Total Protein 5.7 L Total Protein Albumin 2.3 L Gvmcb-6-Pzldlagcc 0.5 H Ocoed-8-Voisfolhk 1.0 H PEP Interpretation see below H Triglycerides LDL Cholesterol Direct HDL Cholesterol Free T4 PTH Intact Urine WBC (Auto) Urine Creatinine Salicylates Acetaminophen Crossmatch 04/22/19 04/22/19 04/22/19 04:24 06:37 11:57 WBC RBC Hgb Hct MCV MCHC RDW Plt Count Lymph % (Auto) Davis % (Auto) Eos % (Auto) Lymph # Davis # Eos # Seg Neutrophils % Seg Neuts % (Manual) Lymphocytes % (Manual) Monocytes % (Manual) Nucleated RBC % Seg Neutrophils # Seg Neutrophils # Man Lymphocytes # (Manual) Monocytes # (Manual) PT INR D-Dimer Heparin Anti-Xa Level POC ABG pH ABG pH POC ABG pCO2 POC ABG pO2 ABG pO2 ABG HCO3 ABG O2 Saturation ABG Base Excess ABG Hemoglobin Oxyhemoglobin Sodium Potassium Chloride Carbon Dioxide BUN 54 H Creatinine 3.5 H Glucose POC Glucose 113 H 110 H Lactic Acid Calcium 11.4 H Ionized Calcium Phosphorus Magnesium Iron TIBC Ferritin Total Bilirubin Direct Bilirubin AST ALT Alkaline Phosphatase Total Creatine Kinase CK-MB (CK-2) Troponin T C-Reactive Protein Serum Total Protein Total Protein Albumin Fufpj-6-Kdglrgzum Vlrqn-0-Hdeewljkr PEP Interpretation Triglycerides LDL Cholesterol Direct HDL Cholesterol Free T4 PTH Intact Urine WBC (Auto) Urine Creatinine Salicylates Acetaminophen Crossmatch 04/22/19 04/23/19 04/23/19 18:33 04:06 04:06 WBC 16.1 H RBC 3.36 L Hgb 9.8 L Hct 30.8 L MCV MCHC RDW 17.7 H Plt Count Lymph % (Auto) 9.9 L Davis % (Auto) Eos % (Auto) Lymph # Davis # Eos # Seg Neutrophils % 84.2 H Seg Neuts % (Manual) Lymphocytes % (Manual) Monocytes % (Manual) Nucleated RBC % Seg Neutrophils # 13.6 H Seg Neutrophils # Man Lymphocytes # (Manual) Monocytes # (Manual) PT INR D-Dimer Heparin Anti-Xa Level POC ABG pH ABG pH POC ABG pCO2 POC ABG pO2 ABG pO2 ABG HCO3 ABG O2 Saturation ABG Base Excess ABG Hemoglobin Oxyhemoglobin Sodium Potassium Chloride Carbon Dioxide BUN 59 H Creatinine 3.8 H Glucose POC Glucose 120 H Lactic Acid Calcium 12.3 H* Ionized Calcium Phosphorus 5.70 H Magnesium Iron TIBC Ferritin Total Bilirubin Direct Bilirubin AST ALT Alkaline Phosphatase Total Creatine Kinase CK-MB (CK-2) Troponin T C-Reactive Protein Serum Total Protein Total Protein Albumin 3.2 L Psbal-4-Lzuqigogj Liqut-5-Scdsvlrnp PEP Interpretation Triglycerides LDL Cholesterol Direct HDL Cholesterol Free T4 PTH Intact Urine WBC (Auto) Urine Creatinine Salicylates Acetaminophen Crossmatch 04/23/19 04/24/19 04/24/19 18:06 04:12 04:12 WBC 18.0 H RBC 3.46 L Hgb 9.8 L Hct 31.2 L MCV MCHC 31 L RDW 17.5 H Plt Count Lymph % (Auto) 11.1 L Davis % (Auto) Eos % (Auto) Lymph # Davis # Eos # Seg Neutrophils % 81.9 H Seg Neuts % (Manual) Lymphocytes % (Manual) Monocytes % (Manual) Nucleated RBC % Seg Neutrophils # 14.7 H Seg Neutrophils # Man Lymphocytes # (Manual) Monocytes # (Manual) PT INR D-Dimer Heparin Anti-Xa Level POC ABG pH ABG pH POC ABG pCO2 POC ABG pO2 ABG pO2 ABG HCO3 ABG O2 Saturation ABG Base Excess ABG Hemoglobin Oxyhemoglobin Sodium Potassium Chloride Carbon Dioxide BUN 56 H Creatinine 3.6 H Glucose POC Glucose 124 H Lactic Acid Calcium 12.6 H* Ionized Calcium Phosphorus Magnesium Iron TIBC Ferritin Total Bilirubin Direct Bilirubin AST ALT Alkaline Phosphatase Total Creatine Kinase CK-MB (CK-2) Troponin T C-Reactive Protein Serum Total Protein Total Protein Albumin 3.2 L Iptmf-4-Oudgfdkbv Rlcis-8-Mxlvmhofw PEP Interpretation Triglycerides LDL Cholesterol Direct HDL Cholesterol Free T4 PTH Intact Urine WBC (Auto) Urine Creatinine Salicylates Acetaminophen Crossmatch 04/24/19 04/24/19 04/25/19 06:21 11:47 05:58 WBC 18.0 H RBC 2.98 L Hgb 8.3 L Hct 26.5 L MCV MCHC 31 L RDW 17.9 H Plt Count Lymph % (Auto) 10.1 L Davis % (Auto) Eos % (Auto) Lymph # Davis # 0.9 H Eos # Seg Neutrophils % 82.8 H Seg Neuts % (Manual) Lymphocytes % (Manual) Monocytes % (Manual) Nucleated RBC % Seg Neutrophils # 15.0 H Seg Neutrophils # Man Lymphocytes # (Manual) Monocytes # (Manual) PT INR D-Dimer Heparin Anti-Xa Level POC ABG pH ABG pH POC ABG pCO2 POC ABG pO2 ABG pO2 ABG HCO3 ABG O2 Saturation ABG Base Excess ABG Hemoglobin Oxyhemoglobin Sodium Potassium Chloride Carbon Dioxide BUN Creatinine Glucose POC Glucose 132 H 106 H Lactic Acid Calcium Ionized Calcium Phosphorus Magnesium Iron TIBC Ferritin Total Bilirubin Direct Bilirubin AST ALT Alkaline Phosphatase Total Creatine Kinase CK-MB (CK-2) Troponin T C-Reactive Protein Serum Total Protein Total Protein Albumin Mejbw-2-Vtxjmscaq Fsmdq-1-Izpeufuor PEP Interpretation Triglycerides LDL Cholesterol Direct HDL Cholesterol Free T4 PTH Intact Urine WBC (Auto) Urine Creatinine Salicylates Acetaminophen Crossmatch 04/25/19 04/26/19 04/26/19 05:58 05:57 06:08 WBC RBC Hgb Hct MCV MCHC RDW Plt Count Lymph % (Auto) Davis % (Auto) Eos % (Auto) Lymph # Davis # Eos # Seg Neutrophils % Seg Neuts % (Manual) Lymphocytes % (Manual) Monocytes % (Manual) Nucleated RBC % Seg Neutrophils # Seg Neutrophils # Man Lymphocytes # (Manual) Monocytes # (Manual) PT INR D-Dimer Heparin Anti-Xa Level POC ABG pH ABG pH POC ABG pCO2 POC ABG pO2 ABG pO2 ABG HCO3 ABG O2 Saturation ABG Base Excess ABG Hemoglobin Oxyhemoglobin Sodium Potassium 3.2 L Chloride Carbon Dioxide BUN 52 H 48 H Creatinine 3.2 H 2.9 H Glucose 108 H 112 H POC Glucose 109 H Lactic Acid Calcium 11.4 H 12.5 H* Ionized Calcium Phosphorus 5.90 H Magnesium Iron TIBC Ferritin Total Bilirubin Direct Bilirubin AST ALT Alkaline Phosphatase Total Creatine Kinase CK-MB (CK-2) Troponin T C-Reactive Protein Serum Total Protein Total Protein Albumin 3.0 L Cocjx-5-Wtfeeqghk Curzb-7-Qrnanvstd PEP Interpretation Triglycerides LDL Cholesterol Direct HDL Cholesterol Free T4 PTH Intact Urine WBC (Auto) Urine Creatinine Salicylates Acetaminophen Crossmatch 04/26/19 04/26/19 04/27/19 07:22 13:39 05:05 WBC 11.9 H RBC 3.01 L Hgb 8.6 L Hct 26.3 L MCV MCHC RDW 17.6 H Plt Count Lymph % (Auto) 11.9 L Davis % (Auto) Eos % (Auto) Lymph # Davis # Eos # Seg Neutrophils % 78.3 H Seg Neuts % (Manual) Lymphocytes % (Manual) Monocytes % (Manual) Nucleated RBC % Seg Neutrophils # 9.4 H Seg Neutrophils # Man Lymphocytes # (Manual) Monocytes # (Manual) PT INR D-Dimer Heparin Anti-Xa Level POC ABG pH ABG pH POC ABG pCO2 POC ABG pO2 ABG pO2 ABG HCO3 ABG O2 Saturation ABG Base Excess ABG Hemoglobin Oxyhemoglobin Sodium Potassium Chloride Carbon Dioxide BUN 46 H Creatinine 2.8 H Glucose POC Glucose Lactic Acid Calcium > 13.0 H* 12.2 H* Ionized Calcium Phosphorus Magnesium Iron TIBC Ferritin Total Bilirubin Direct Bilirubin AST ALT Alkaline Phosphatase Total Creatine Kinase CK-MB (CK-2) Troponin T C-Reactive Protein Serum Total Protein Total Protein Albumin Pkmvu-2-Zoiuycfpn Zgtsu-4-Yfvtmmzjn PEP Interpretation Triglycerides LDL Cholesterol Direct HDL Cholesterol Free T4 PTH Intact Urine WBC (Auto) Urine Creatinine Salicylates Acetaminophen Crossmatch 04/27/19 04/28/19 04/29/19 05:05 05:17 14:14 WBC RBC Hgb Hct MCV MCHC RDW Plt Count Lymph % (Auto) Davis % (Auto) Eos % (Auto) Lymph # Davis # Eos # Seg Neutrophils % Seg Neuts % (Manual) Lymphocytes % (Manual) Monocytes % (Manual) Nucleated RBC % Seg Neutrophils # Seg Neutrophils # Man Lymphocytes # (Manual) Monocytes # (Manual) PT INR D-Dimer Heparin Anti-Xa Level POC ABG pH ABG pH POC ABG pCO2 POC ABG pO2 ABG pO2 ABG HCO3 ABG O2 Saturation ABG Base Excess ABG Hemoglobin Oxyhemoglobin Sodium 136 L Potassium 3.2 L 3.4 L Chloride Carbon Dioxide BUN 40 H 34 H 33 H Creatinine 2.5 H 2.0 H 1.9 H Glucose 113 H 107 H POC Glucose Lactic Acid Calcium 12.3 H* 12.1 H* 11.5 H Ionized Calcium Phosphorus Magnesium Iron TIBC Ferritin Total Bilirubin Direct Bilirubin AST ALT Alkaline Phosphatase Total Creatine Kinase CK-MB (CK-2) Troponin T C-Reactive Protein Serum Total Protein Total Protein 6.2 L Albumin 2.8 L Houbm-7-Fkvnjgspg [place]-7-Mudmfmuwh PEP Interpretation Triglycerides LDL Cholesterol Direct HDL Cholesterol Free T4 PTH Intact Urine WBC (Auto) Urine Creatinine Salicylates Acetaminophen Crossmatch 04/29/19 04/29/19 04/30/19 14:14 14:14 06:47 WBC RBC Hgb Hct MCV MCHC RDW Plt Count Lymph % (Auto) Davis % (Auto) Eos % (Auto) Lymph # Davis # Eos # Seg Neutrophils % Seg Neuts % (Manual) Lymphocytes % (Manual) Monocytes % (Manual) Nucleated RBC % Seg Neutrophils # Seg Neutrophils # Man Lymphocytes # (Manual) Monocytes # (Manual) PT INR D-Dimer Heparin Anti-Xa Level POC ABG pH ABG pH POC ABG pCO2 POC ABG pO2 ABG pO2 ABG HCO3 ABG O2 Saturation ABG Base Excess ABG Hemoglobin Oxyhemoglobin Sodium Potassium 3.2 L Chloride Carbon Dioxide 21 L BUN 26 H Creatinine 1.8 H Glucose POC Glucose Lactic Acid Calcium 10.8 H Ionized Calcium 7.2 H* Phosphorus Magnesium Iron TIBC Ferritin Total Bilirubin Direct Bilirubin AST ALT Alkaline Phosphatase Total Creatine Kinase CK-MB (CK-2) Troponin T C-Reactive Protein Serum Total Protein Total Protein Albumin Mzkvk-0-Bdzvzjfxp Oqxfy-1-Igvzoxhoq PEP Interpretation Triglycerides LDL Cholesterol Direct HDL Cholesterol Free T4 PTH Intact 8.83 L Urine WBC (Auto) Urine Creatinine Salicylates Acetaminophen Crossmatch 04/30/19 05/01/19 05/01/19 12:17 06:52 06:52 WBC 15.4 H RBC 3.01 L Hgb 8.4 L Hct 26.2 L MCV MCHC RDW 17.0 H Plt Count Lymph % (Auto) 8.4 L Davis % (Auto) 8.9 H Eos % (Auto) Lymph # Davis # 1.4 H Eos # 0.5 H Seg Neutrophils % 78.7 H Seg Neuts % (Manual) Lymphocytes % (Manual) Monocytes % (Manual) Nucleated RBC % Seg Neutrophils # 12.1 H Seg Neutrophils # Man Lymphocytes # (Manual) Monocytes # (Manual) PT INR D-Dimer Heparin Anti-Xa Level POC ABG pH ABG pH POC ABG pCO2 POC ABG pO2 ABG pO2 ABG HCO3 ABG O2 Saturation ABG Base Excess ABG Hemoglobin Oxyhemoglobin Sodium Potassium 3.0 L Chloride Carbon Dioxide BUN 22 H Creatinine Glucose POC Glucose 106 H Lactic Acid Calcium 11.2 H Ionized Calcium Phosphorus Magnesium Iron TIBC Ferritin Total Bilirubin Direct Bilirubin AST ALT Alkaline Phosphatase Total Creatine Kinase CK-MB (CK-2) Troponin T C-Reactive Protein Serum Total Protein Total Protein Albumin 3.0 L Gbiwl-1-Ntcxewvub Qkglc-3-Ehwvnyqem PEP Interpretation Triglycerides LDL Cholesterol Direct HDL Cholesterol Free T4 PTH Intact Urine WBC (Auto) Urine Creatinine Salicylates Acetaminophen Crossmatch 05/01/19 05/01/19 05/02/19 06:52 18:40 05:32 WBC RBC Hgb Hct MCV MCHC RDW Plt Count Lymph % (Auto) Davis % (Auto) Eos % (Auto) Lymph # Davis # Eos # Seg Neutrophils % Seg Neuts % (Manual) Lymphocytes % (Manual) Monocytes % (Manual) Nucleated RBC % Seg Neutrophils # Seg Neutrophils # Man Lymphocytes # (Manual) Monocytes # (Manual) PT INR D-Dimer Heparin Anti-Xa Level POC ABG pH ABG pH POC ABG pCO2 POC ABG pO2 ABG pO2 ABG HCO3 ABG O2 Saturation ABG Base Excess ABG Hemoglobin Oxyhemoglobin Sodium Potassium Chloride Carbon Dioxide BUN Creatinine Glucose POC Glucose 169 H 109 H Lactic Acid Calcium Ionized Calcium Phosphorus Magnesium Iron TIBC Ferritin Total Bilirubin Direct Bilirubin AST ALT Alkaline Phosphatase Total Creatine Kinase CK-MB (CK-2) Troponin T C-Reactive Protein Serum Total Protein 5.7 L Total Protein Albumin 2.5 L Pifit-8-Iwiwntkzj 0.5 H Xgtnq-0-Uovwspuvd PEP Interpretation see below H Triglycerides LDL Cholesterol Direct HDL Cholesterol Free T4 PTH Intact Urine WBC (Auto) Urine Creatinine Salicylates Acetaminophen Crossmatch 05/02/19 05/02/19 05/02/19 05:57 05:57 11:43 WBC 14.2 H RBC 2.96 L Hgb 8.3 L Hct 26.0 L MCV MCHC RDW 16.8 H Plt Count Lymph % (Auto) Davis % (Auto) Eos % (Auto) Lymph # Davis # Eos # Seg Neutrophils % Seg Neuts % (Manual) Lymphocytes % (Manual) Monocytes % (Manual) Nucleated RBC % Seg Neutrophils # Seg Neutrophils # Man Lymphocytes # (Manual) Monocytes # (Manual) PT INR D-Dimer Heparin Anti-Xa Level POC ABG pH ABG pH POC ABG pCO2 POC ABG pO2 ABG pO2 ABG HCO3 ABG O2 Saturation ABG Base Excess ABG Hemoglobin Oxyhemoglobin Sodium 136 L Potassium 3.5 L Chloride Carbon Dioxide BUN 21 H Creatinine Glucose POC Glucose 108 H Lactic Acid Calcium 11.1 H Ionized Calcium Phosphorus Magnesium Iron TIBC Ferritin Total Bilirubin Direct Bilirubin AST ALT Alkaline Phosphatase Total Creatine Kinase CK-MB (CK-2) Troponin T C-Reactive Protein Serum Total Protein Total Protein Albumin Wnhyq-6-Ifozioidx Plbcl-6-Fxroiuzgr PEP Interpretation Triglycerides LDL Cholesterol Direct HDL Cholesterol Free T4 PTH Intact Urine WBC (Auto) Urine Creatinine Salicylates Acetaminophen Crossmatch 05/03/19 05/03/19 05/04/19 05:37 05:37 06:49 WBC 12.7 H 11.1 H RBC 3.01 L 3.07 L Hgb 8.3 L 8.6 L Hct 26.1 L 26.6 L MCV MCHC RDW 16.9 H 17.3 H Plt Count Lymph % (Auto) Davis % (Auto) 9.0 H Eos % (Auto) 4.9 H Lymph # Davis # 1.0 H Eos # 0.5 H Seg Neutrophils % Seg Neuts % (Manual) Lymphocytes % (Manual) Monocytes % (Manual) Nucleated RBC % Seg Neutrophils # 7.8 H Seg Neutrophils # Man Lymphocytes # (Manual) Monocytes # (Manual) PT INR D-Dimer Heparin Anti-Xa Level POC ABG pH ABG pH POC ABG pCO2 POC ABG pO2 ABG pO2 ABG HCO3 ABG O2 Saturation ABG Base Excess ABG Hemoglobin Oxyhemoglobin Sodium 135 L Potassium 3.3 L Chloride Carbon Dioxide BUN Creatinine Glucose POC Glucose Lactic Acid Calcium 10.9 H Ionized Calcium Phosphorus Magnesium 1.50 L Iron TIBC Ferritin Total Bilirubin Direct Bilirubin AST ALT Alkaline Phosphatase Total Creatine Kinase CK-MB (CK-2) Troponin T C-Reactive Protein Serum Total Protein Total Protein Albumin Pryyz-5-Cqsmlwsmk Kmenp-3-Tfdfmtxyk PEP Interpretation Triglycerides LDL Cholesterol Direct HDL Cholesterol Free T4 PTH Intact Urine WBC (Auto) Urine Creatinine Salicylates Acetaminophen Crossmatch 05/04/19 05/04/19 05/04/19 06:49 06:49 11:58 WBC RBC Hgb Hct MCV MCHC RDW Plt Count Lymph % (Auto) Davis % (Auto) Eos % (Auto) Lymph # Davis # Eos # Seg Neutrophils % Seg Neuts % (Manual) Lymphocytes % (Manual) Monocytes % (Manual) Nucleated RBC % Seg Neutrophils # Seg Neutrophils # Man Lymphocytes # (Manual) Monocytes # (Manual) PT 15.5 H INR 1.24 H D-Dimer Heparin Anti-Xa Level POC ABG pH ABG pH POC ABG pCO2 POC ABG pO2 ABG pO2 ABG HCO3 ABG O2 Saturation ABG Base Excess ABG Hemoglobin Oxyhemoglobin Sodium Potassium Chloride Carbon Dioxide 19 L BUN Creatinine Glucose POC Glucose 111 H Lactic Acid Calcium 10.7 H Ionized Calcium Phosphorus Magnesium Iron TIBC Ferritin Total Bilirubin Direct Bilirubin AST ALT Alkaline Phosphatase Total Creatine Kinase CK-MB (CK-2) Troponin T C-Reactive Protein Serum Total Protein Total Protein Albumin Ntshh-9-Cvgvxzvga Dxcwv-9-Sxtgjyuni PEP Interpretation Triglycerides LDL Cholesterol Direct HDL Cholesterol Free T4 PTH Intact Urine WBC (Auto) Urine Creatinine Salicylates Acetaminophen Crossmatch Allied health notes reviewed: nursing
[2019-05-05 06:45] LABS: Hematocrit 26.5 % (35.5-45.6); Hemoglobin 8.5 gm/dl (11.8-15.2); Mean Corpuscular HGB Conc 32 % (32-34); Mean Corpuscular Volume 86 fl (84-94); Platelet Count 344 K/mm3 (140-440); Red Blood Count 3.08 M/mm3 (3.65-5.03); Red Cell Distribution Width 17.1 % (13.2-15.2)
[2019-05-05 07:10] LABS: BUN/Creatinine Ratio 14; Blood Urea Nitrogen 17 mg/dL (9-20); Calcium 10.3 mg/dL (8.4-10.2); Hemolysis Index 2
[2019-05-05] MEDS: AMIODARONE 200 MG TAB PO SCH (09:39)
[2019-05-05] MEDS: METOPROLOL TARTRATE 25 MG TAB PO SCH ×3 (09:39→21:28)
[2019-05-05] MEDS: LANSOPRAZOLE 30 MG SOLUTAB FEEDTUBE SCH ×2 (09:39→21:28)
[2019-05-05] MEDS: HYDROcodone/ACETAMINOPHEN 5-325 MG TAB PO PRN ×2 (09:44→21:28)
--- NOTE | 2019-05-05 10:07 | Progress Note ---
Assessment and Plan 1. Acute kidney injury: Vasomotor RUBEN in the setting of shock / volume depletion / Rhabdo. Baseline renal function is unknown. CT abdomen was negative for obstructive nephropathy. Patient was started on hemodialysis on 03/18/19 due to worsening metabolic acidosis and hyperkalemia. Hemodialysis: 03/18, 03/19, 03/20, 03/22, 03/23, 03/24, 03/26, 03/28, 03/29, 03/31, 04/02, 04/04, 04/06, 04/09, 04/11, 04/13, 04/18, 04/20. Monitor for [employer] needs. Renal function is better. Monitor renal function. Avoid nephrotoxic agents. Meds dosage based on GFR. 2. FEN: Hypercalcemia, multifactorial etiology. Contributing factor includes immobilization. Patient previously received high dose Vitamin D and activated Vit.D for hypocalcemia. Ionized Calcium was high. PTH and 25-OH Vit.D level was low. S/p Pamidronate on 04/26 and Calcitonin. Calcium level is better. Monitor lytes. 3. Septic shock: Currently off pressors. Fever resolved. Per ID recommendation the dialysis catheter was removed on 04/20. 4. Suspected CAD: Lexiscan MPI stress test done 05/03 showed small mild to moderate reversible anterior and lateral perfusion defect, EF 44%. Followed by Cards. 5. A.fib with RVR: On Amiodarone and Metoprolol. 6. Respiratory failure: Extubated. 7. Severe anemia: S/p PRBC and Epogen. 8. Elevated transaminases: Improved. 9. Encephalopathy: Improved. Will see patient intermittently as needed. Examination: General appearance: well-developed, appears stated age, obese, not in distress HEENT: Atraumatic EYES: Pupils reacting to light Neck: supple Respiratory: ctab Cardiology: regular, S1S2 heard, no murmur Gastrointestinal: obese, BS heard, not tender Integumentary: no rash noted Neurologic: alert, follows command, conversing, oriented Ext: L UE edema is better Skin: L elbow area wound Hemodialysis access: None Subjective Date of service: 05/05/19 Principal diagnosis: anemia - DVT rt IJ Interval history: Patient was seen and examined at the bedside. Doing ok. Eating well. Objective - Vital Signs Vital signs: Vital Signs - 12hr 11/02/1205/04/19 05/05/19 22:26 22:31 00:58 Temperature 98.4 F Pulse Rate 82 Respiratory 18 18 Rate Blood Pressure 132/86 O2 Sat by Pulse 95 Oximetry 05/05/19 05/05/19 05:39 09:39 Temperature 97.6 F Pulse Rate 79 Respiratory 16 Rate Blood Pressure 121/77 133/84 O2 Sat by Pulse 96 Oximetry - Lab 05/05/19 06:14 05/05/19 06:14 Most recent lab results ABG pH 7.388 pH Units (7.350-7.450) 04/06/19 05:20 ABG pCO2 38.5 mm Hg 04/06/19 05:20 ABG pO2 104.0 mm Hg (80.0-90.0) H 04/06/19 05:20 ABG HCO3 22.6 mmol/L (20.0-26.0) 04/06/19 05:20 ABG O2 Saturation 97.8 % (95.0-99.0) 04/06/19 05:20 Calcium 10.3 mg/dL (8.4-10.2) H 05/05/19 06:14 Phosphorus 2.80 mg/dL (2.5-4.5) 05/03/19 05:37 Magnesium 2.20 mg/dL (1.7-2.3) 05/04/19 06:49 Urine Creatinine 106.6 mg/dL (0.1-20.0) H 03/17/19 16:05 Urine Sodium 95 mmol/L 03/17/19 16:05 Medications & Allergies - Medications Allergies/Adverse Reactions: Allergies No Known Allergies Allergy (Unverified 03/16/19 17:17) Home Medications: Home Medications Medication Instructions Recorded Confirmed Last Taken Type No Known Home Medications [No 04/28/19 04/28/19 Unknown History Reported Home Medications] Active Medications: Generic Name Dose Route Start Last Admin Trade Name Freq PRN Reason Stop Dose Admin Acetaminophen 650 mg 04/02/19 23:26 04/30/19 11:16 Tylenol PO 650 mg Q4H PRN Administration Pain, Mild (1-3),temp>100.5 Acetaminophen/Hydrocodone Bitart 1 each 05/02/19 11:50 05/05/19 09:44 [place] 5/325 PO 1 each Q6H PRN Administration Pain, Moderate (4-6) Al Hydrox/Mg Hydrox/Simethicone 15 ml 04/30/19 15:15 04/30/19 15:53 Alum-Mag Hydrox-Simeth 729-438-59qh/5ml PO 15 ml Q4H PRN Administration Indigestion Albuterol 2.5 mg 03/29/19 13:08 Proventil IH Q4HRT PRN Shortness Of Breath Amiodarone HCl 200 mg 05/04/19 10:00 05/05/19 09:39 Cordarone PO 200 mg DAILY PAOLO Administration Lipase/Protease/Amylase 1 each 04/20/19 13:17 Pancreaze 10,500 Unit FEEDTUBE PRN PRN For Clogged Feeding Tube Bacitracin 1 applic 04/17/19 08:00 Antibiotic Oint TP Q4H PRN upper lip sore/open Dextrose 50 gm 04/17/19 08:00 D50w (25gm) Vial IV Q1H PRN Hypoglycemia Hydralazine HCl 20 mg 04/14/19 03:00 04/14/19 03:11 Apresoline IV 20 mg Q4H PRN Administration hypertemsion Hydrophilic Ointment 1 applic 03/16/19 15:50 04/19/19 18:24 Vaseline Lip Therapy TP 1 applic Q2HR PRN Administration Dry Lips Sodium Chloride 100 mls @ 999 mls/hr 04/20/19 08:41 Nacl 0.9% IV NEYMAR PRN Hypotension Sodium Chloride 1,000 mls @ 70 mls/hr 05/04/19 00:00 05/04/19 22:50 Nacl 0.9% 1000 Ml IV 70 mls/hr DIRECT PAOLO Administration Lansoprazole 30 mg 04/11/19 10:00 05/05/19 09:39 Prevacid Solutab FEEDTUBE 30 mg BID PAOLO Administration Melatonin 5 mg 04/26/19 21:00 05/03/19 22:27 Melatonin PO 5 mg QHS PRN Administration Sleep Metoprolol Tartrate 25 mg 04/17/19 20:00 05/05/19 09:39 Lopressor PO 25 mg TID PAOLO Administration Multi-Ingred Cream/Lotion/Oil/Oint 1 applic 03/16/19 15:50 03/19/19 20:10 Artificial Tears Ophth Oint OU 1 applic Q4HR PRN Administration Dry Eye(s) Simple Syrup 15 ml 04/20/19 13:17 Simple Syrup FEEDTUBE PRN PRN Hypoglycemia Simple Syrup 30 ml 04/20/19 13:29 05/01/19 17:57 Simple Syrup FEEDTUBE 30 ml PRN PRN Administration Hypoglycemia Sodium Bicarbonate 325 mg 04/20/19 13:17 04/27/19 11:03 Sodium Bicarbonate FEEDTUBE 325 mg PRN PRN Administration For Clogged Feeding Tube
--- NOTE | 2019-05-05 11:49 | Progress Note ---
Assessment and Plan The patient will ultimately be considered for C with possible intervention after he is cleared for DAPT by the GI team. EP recommendations noted. Cardiac status is otherwise stable. Continue current management. The patient has been seen in conjunction with Dr. Christian, who agrees with the assessment and plan. - Patient Problems (1) Septic shock Current Visit: Yes Status: Resolved (2) Acute respiratory failure Current Visit: Yes Status: Resolved Qualifiers: Respiratory failure complication: hypoxia Qualified Code(s): J96.01 - Acute respiratory failure with hypoxia (3) Ventricular tachycardia Current Visit: Yes Status: Resolved (4) Metabolic encephalopathy Current Visit: Yes Status: Resolved (5) Elevated LFTs Current Visit: Yes Status: Acute (6) Enteritis Current Visit: Yes Status: Suspected (7) Acute renal failure Current Visit: Yes Status: Acute Qualifiers: Acute renal failure type: with acute tubular necrosis Qualified Code(s): N17.0 - Acute kidney failure with tubular necrosis (8) Aspiration pneumonia Current Visit: Yes Status: Acute Qualifiers: Aspiration pneumonia type: unspecified (9) Hypomagnesemia Current Visit: Yes Status: Resolved (10) Multi-organ system dysfunction Current Visit: Yes Status: Resolved (11) Rhabdomyolysis Current Visit: Yes Status: Acute (12) SVT (supraventricular tachycardia) Current Visit: Yes Status: Resolved (13) Thrombocytopenia Current Visit: Yes Status: Resolved Subjective Date of service: 05/05/19 Principal diagnosis: anemia - DVT rt IJ Interval history: The patient is lying in bed in NAD. No cardiac complaints. He is awaiting surgical removal of arm wound next week. Telemetry reviewed - SR in 70s. Objective Last Vital Signs Temp 97.6 F 05/05/19 05:39 Pulse 79 05/05/19 05:39 Resp 16 05/05/19 05:39 BP 133/84 05/05/19 09:39 Pulse Ox 96 05/05/19 05:39 - Physical Examination General: No Apparent Distress HEENT: Positive: PERRL, EOMI, Normocephaly, Mucus Membranes Moist Neck: Positive: neck supple, trachea midline Cardiac: Positive: Reg Rate and Rhythm Lungs: Positive: Normal Exam Neuro: Positive: Grossly Intact, Other Abdomen: Positive: Soft, Active Bowel Sounds. Negative: Tender /Rectal: Other (deferred) Skin: Positive: Clear, Wound (left arm ). Negative: Rash Musculoskeletal: Normal Range of Motion, other (LUE swollen ) Extremities: Present: normal, +3 Edema (LUE). Absent: edema - Labs and Meds CBC 05/05/19 Range/Units 06:14 WBC 11.5 H (4.5-11.0) K/mm3 RBC 3.08 L (3.65-5.03) M/mm3 Hgb 8.5 L (11.8-15.2) gm/dl Hct 26.5 L (35.5-45.6) % Plt Count 344 (140-440) K/mm3 Comprehensive Metabolic Panel 05/05/19 Range/Units 06:14 Sodium 136 L (137-145) mmol/L Potassium 3.7 (3.6-5.0) mmol/L Chloride 102.9 (98-107) mmol/L Carbon Dioxide 21 L (22-30) mmol/L BUN 17 (9-20) mg/dL Creatinine 1.2 (0.8-1.5) mg/dL Glucose 86 (75-100) mg/dL Calcium 10.3 H (8.4-10.2) mg/dL - Imaging and Cardiology Nuclear stress test: report reviewed (05/03/19: mild LV dysfunction w/evidence of ischemia in area of LAD and in RCA.) Echo: report reviewed ( EF 40-45%, impaired relaxation. ) - EKG Sinus rhythms and dysrhythmias: sinus rhythm - Allied health notes Allied health notes reviewed: nursing
--- NOTE | 2019-05-05 12:42 | Progress Note ---
Assessment and Plan Patient is a 43-year-old man with history of GERD, obesity and mental illness, who presented to [facility] ED on 03/16/2019 with altered mental status. He is visiting from [place] and was brought in by his friend. As per records per family he has been homeless [address] [place]. When he came to the ER, he was unable to speak or follow commands, in the ER he was found to have SVT with heart rate in the 250s. The patient was shocked and medicated. Also was confused, and had trouble protecting his airway; therefore, he was then intubated. He has had a prolonged hospital course. During this hospital course, he was found to have sepsis with septic shock, acute resp failure, rhabdomyolysis, RBUEN, and multisystem organ failure, toxic metabolic encephalopathy. He was started on hemodialysis-still getting dialysis. patient is much improved. Still has recurrent fever, followed by ID Physician. Patient now on Azactam, Zyvox. He passed his swallow test started on mechanical soft diet today 04/21/19. Acute hypoxic respiratory failure. Was intubated, now extubated. Now on Room air. Continue BiPAP as clinically indicated. Atrial fibrillation. Continue Metoprolol. Cardiology following. No systemic AC regarding AFib in setting of anemia, thrombocytopenia, GI bleed. Acute blood loss anemia. Patient with GI bleed secondary to peptic ulcer disease. EGD completed per GI. Continue PRBCs as needed. GI bleed/peptic ulcer disease. Continue PPI. Transfuse PRBCs as needed. Sepsis/septic shock. Continue antibiotics per ID. Now on Zyvox and Azactam Fever, recurrent ID following Ischemic hepatitis/shock liver. Elevated LFTs improved. Viral hepatitis panel negative. Acute kidney injury. Patient still on hemodialysis. Patient was started on hemodialysis on 03/18/19 due to worsening metabolic acidosis and hyperkalemia. Baseline renal function is unknown. CT abdomen was negative for obstructive nephropathy. Avoid nephrotoxic agents. Continue hemodialysis per nephrology. Toxic metabolic encephalopathy. Brain MRI showed no acute intracranial abnormality, mild nonspecific chronic white matter changes, fluid throughout the sinuses and mastoid air cells. Swelling both upper ext L>R Doppler US : no DVT LUE Hypokalemia. Correted Replete potassium as needed. Hypernatremia. Bumex was stopped. Follow-up BMP Nephrology following Now resolved Na 141 today Thrombocytopenia. Etiology likely secondary to sepsis. Resolved. Rhabdomyolysis. CK normalized. Full code status Subjective Date of service: 05/05/19 Principal diagnosis: anemia - DVT rt IJ Interval history: Pt seen and examine. No new complaint, Lying quietly in bed. Still Leukocytic Objective - Exam Narrative Exam: Constitutional: Well-nourished well-developed. In no distress Head: Normocephalic atraumatic Eyes: Pupils are equal round and reactive to light Nose: No enlarged turbinates, no septal deviation. Mouth: Moist mucous membranes. Neck: Supple no thyromegaly. No bruit. No JVD Heart: Irregularly irregular. No rubs murmurs or gallop Lungs: Clear to auscultation bilaterally. no rales or rhonchi Abdomen: Soft, nontender. Bowel sound are present. Extremities: No edema, no cyanosis, no clubbing. Neuro: Alert oriented Oriented x3. No focal sensory or motor deficit. Skin: No rashes or hyperpigmented spots Musculoskeletal system: No joint pain or swelling Hematological: No petechia or subcutanous hemorrhages. Immunological: No multiple septic spots on the skin Lymphatic: No generalized lymphadenopathy Psychiatry: mildy confusd. Euthymic. Calm. - Constitutional Vitals: Vital Signs - 12hr 05/05/19 05/05/19 05/05/19 00:58 05:39 09:39 Temperature 97.6 F Pulse Rate 79 Respiratory 18 16 Rate Blood Pressure 121/77 133/84 O2 Sat by Pulse 96 Oximetry - Labs CBC & Chem 7: 05/05/19 06:14 05/05/19 06:14 Labs: Abnormal lab results 04/29/19 05/05/19 05/05/19 Range/Units 14:14 06:14 06:14 WBC 11.5 H (4.5-11.0) K/mm3 RBC 3.08 L (3.65-5.03) M/mm3 Hgb 8.5 L (11.8-15.2) gm/dl Hct 26.5 L (35.5-45.6) % RDW 17.1 H (13.2-15.2) % Sodium 136 L (137-145) mmol/L Carbon Dioxide 21 L (22-30) mmol/L Calcium 10.3 H (8.4-10.2) mg/dL Ionized Calcium 7.2 H* (4.8-5.6) mg/dL
--- NOTE | 2019-05-05 20:07 | Progress Note ---
Assessment and Plan Severe sepsis with shock. Right axilla abscess versus localized pannus/fatty collection. Acute hypoxemic respiratory failure, on mechanical ventilator support. Likely aspiration pneumonia, bilateral. Morbid obesity. Rhabdomyolysis. Acute kidney injury. Leukocytosis. Morbid obesity. Metabolic acidosis. Lactic acidosis. Hypomagnesemia. Elevated serum transaminases/possible shock liver. Acute encephalopathy, toxic metabolic versus anoxic - prn BIPAP for increased work of breathing - continue cardiac work-up - will need outpatient PSG - continue aggressive PT/OT as tolerated - continue ST evaluation and advance diet as tolerated - continue prn albuterol treatments - prn oxygen to keep O2 sats > 90% - azotemia per nephrology (non-oliguric) - prn supportive blood transfusions to keep serum Hb > 7.0 - Monitor hemodynamics closely - Transfuse PRBC's to keep HgB > 7g/dL - continue mobility protocols and off loading as tolerated for pressure ulcer prophylaxis - continue to avoid nephrotoxins, adjust all medications for GFR and CRCL - continue GI & VTE prophylaxis with - accuchecks with glycemic control per SSI for target BG of 140-180 mg/dl acutely - continue other care per attending / other consultants ... re-evaluate in am & prn Subjective Date of service: 05/05/19 Principal diagnosis: Septic Shock; Ac. hypoxemic resp failure; Renzo. PNA; Rhabdomyolysis; RUBEN Interval history: Patient is seen today for: Severe sepsis with shock; Acute hypoxemic respiratory failure; Aspiration pneumonia; Morbid obesity; Rhabdomyolysis; Acute kidney injury; Morbid obesity; Elevated serum transaminases/possible shock liver; Acute encephalopathy (Toxic/Met) Seen and examined at bedside; 24hour events reviewed; nursing and respiratory care staff consulted; no adverse overnight events reported to me; resting peacefully in bed; weaned off oxygen; now off amiodarone; [facility] evaluation ongoing; non-oliguric Objective Vital Signs - 12hr 05/05/19 05/05/19 05/05/19 09:38 09:39 12:53 Temperature 98.5 F 97.9 F Pulse Rate 73 Respiratory 17 14 Rate Blood Pressure 133/84 133/84 142/83 O2 Sat by Pulse 96 Oximetry 05/05/19 05/05/19 14:10 16:55 Temperature 98.0 F Pulse Rate Respiratory 16 Rate Blood Pressure 142/83 123/79 O2 Sat by Pulse Oximetry Constitutional: no acute distress, other (middle aged morbidly obese CM, normocephalic with mildly incresed respiratory effort at rest) Eyes: non-icteric ENT: oropharynx moist, other (extubated) Neck: supple, no lymphadenopathy, no JVD, other (large neck circumference) Effort: mildly labored Ascultation: Bilateral: diminished breath sounds, rhonchi (scant) Percussion: Bilateral: not dull Cardiovascular: regular rate and rhythm, other ( S1,S2) Gastrointestinal: normoactive bowel sounds, soft, non-tender, non-distended, other (obese) Integumentary: normal Extremities: no cyanosis, pink and warm, pulses normal, no ischemia or petechiae Neurologic: normal mental status, non-focal exam (grossly), pupils equal and round, CN II-XII normal, other (very weak) Psychiatric: mood appropriate, affect normal CBC and BMP: 05/05/19 06:14 05/05/19 06:14 ABG, PT/INR, D-dimer: ABG POC ABG pH 7.401 (7.35-7.45) 04/07/19 12:57 ABG pH 7.388 pH Units (7.350-7.450) 04/06/19 05:20 POC ABG pCO2 41.5 (35-45) 04/07/19 12:57 ABG pCO2 38.5 mm Hg 04/06/19 05:20 POC ABG pO2 107 (80-105) H 04/07/19 12:57 ABG pO2 104.0 mm Hg (80.0-90.0) H 04/06/19 05:20 POC ABG HCO3 25.7 (22-26 mml/L) 04/07/19 12:57 POC ABG Total CO2 27 (23-27mmol/L) 04/07/19 12:57 POC ABG O2 Sat 98 04/07/19 12:57 ABG O2 Saturation 97.8 % (95.0-99.0) 04/06/19 05:20 PT/INR, D-dimer PT 15.5 Sec. (12.2-14.9) H 05/04/19 06:49 INR 1.24 (0.87-1.13) H 05/04/19 06:49 D-Dimer 4845.98 ng/mlDDU (0-234) H 03/28/19 12:00 Abnormal lab findings: Abnormal Labs 03/16/19 03/16/19 03/16/19 15:32 16:03 16:05 WBC 27.0 H RBC 5.55 H Hgb 15.7 H Hct 47.1 H MCV MCHC RDW Plt Count 75 L Lymph % (Auto) [place] % (Auto) Eos % (Auto) Lymph # [place] # Eos # Seg Neutrophils % Seg Neuts % (Manual) 85.0 H Lymphocytes % (Manual) 2.0 L Monocytes % (Manual) Nucleated RBC % Seg Neutrophils # Seg Neutrophils # Man 23.0 H Lymphocytes # (Manual) 0.5 L Monocytes # (Manual) PT INR D-Dimer Heparin Anti-Xa Level POC ABG pH ABG pH POC ABG pCO2 POC ABG pO2 ABG pO2 ABG HCO3 ABG O2 Saturation ABG Base Excess ABG Hemoglobin Oxyhemoglobin Sodium 127 L Potassium Chloride 87.8 L Carbon Dioxide 17 L BUN 49 H Creatinine 5.8 H Glucose 150 H POC Glucose 118 H Lactic Acid Calcium 6.6 L Ionized Calcium Phosphorus Magnesium 1.10 L Iron TIBC Ferritin Total Bilirubin Direct Bilirubin AST ALT Alkaline Phosphatase Total Creatine Kinase 89006 H CK-MB (CK-2) Troponin T C-Reactive Protein Serum Total Protein Total Protein Albumin Svozr-7-Dupljwpym Vxrfw-8-Nbkyacnkx PEP Interpretation Triglycerides LDL Cholesterol Direct HDL Cholesterol Free T4 PTH Intact Urine WBC (Auto) Urine Creatinine Salicylates Acetaminophen Crossmatch 03/16/19 03/16/19 03/16/19 16:59 17:05 17:05 WBC RBC Hgb Hct MCV MCHC RDW Plt Count Lymph % (Auto) [place] % (Auto) Eos % (Auto) Lymph # [place] # Eos # Seg Neutrophils % Seg Neuts % (Manual) Lymphocytes % (Manual) Monocytes % (Manual) Nucleated RBC % Seg Neutrophils # Seg Neutrophils # Man Lymphocytes # (Manual) Monocytes # (Manual) PT INR D-Dimer Heparin Anti-Xa Level POC ABG pH 7.297 L ABG pH POC ABG pCO2 33.0 L POC ABG pO2 ABG pO2 ABG HCO3 ABG O2 Saturation ABG Base Excess ABG Hemoglobin Oxyhemoglobin Sodium Potassium Chloride Carbon Dioxide BUN Creatinine Glucose POC Glucose Lactic Acid Calcium Ionized Calcium Phosphorus Magnesium Iron TIBC Ferritin Total Bilirubin Direct Bilirubin AST ALT Alkaline Phosphatase Total Creatine Kinase 18020 H CK-MB (CK-2) 83.1 H Troponin T C-Reactive Protein Serum Total Protein Total Protein Albumin Hbcrt-7-Gbkfckyve Sandi-6-Iyiaiaixg PEP Interpretation Triglycerides LDL Cholesterol Direct HDL Cholesterol Free T4 0.72 L PTH Intact Urine WBC (Auto) Urine Creatinine Salicylates Acetaminophen Crossmatch 03/16/19 03/16/19 03/16/19 17:05 17:05 17:05 WBC RBC Hgb Hct MCV MCHC RDW Plt Count Lymph % (Auto) [place] % (Auto) Eos % (Auto) Lymph # [place] # Eos # Seg Neutrophils % Seg Neuts % (Manual) Lymphocytes % (Manual) Monocytes % (Manual) Nucleated RBC % Seg Neutrophils # Seg Neutrophils # Man Lymphocytes # (Manual) Monocytes # (Manual) PT INR D-Dimer Heparin Anti-Xa Level POC ABG pH ABG pH POC ABG pCO2 POC ABG pO2 ABG pO2 ABG HCO3 ABG O2 Saturation ABG Base Excess ABG Hemoglobin Oxyhemoglobin Sodium Potassium Chloride Carbon Dioxide BUN Creatinine Glucose POC Glucose Lactic Acid 5.10 H* Calcium Ionized Calcium Phosphorus Magnesium Iron TIBC Ferritin Total Bilirubin Direct Bilirubin AST ALT Alkaline Phosphatase Total Creatine Kinase CK-MB (CK-2) Troponin T C-Reactive Protein Serum Total Protein Total Protein Albumin Xzpwk-7-Assfhcujs Nnuhf-1-Oyqackzdh PEP Interpretation Triglycerides LDL Cholesterol Direct HDL Cholesterol Free T4 PTH Intact Urine WBC (Auto) Urine Creatinine Salicylates < 0.3 L Acetaminophen < 5.0 L Crossmatch 03/16/19 03/16/19 03/16/19 17:05 17:05 20:35 WBC RBC Hgb Hct MCV MCHC RDW Plt Count Lymph % (Auto) [place] % (Auto) Eos % (Auto) Lymph # [place] # Eos # Seg Neutrophils % Seg Neuts % (Manual) Lymphocytes % (Manual) Monocytes % (Manual) Nucleated RBC % Seg Neutrophils # Seg Neutrophils # Man Lymphocytes # (Manual) Monocytes # (Manual) PT 15.9 H INR 1.30 H D-Dimer Heparin Anti-Xa Level POC ABG pH ABG pH POC ABG pCO2 POC ABG pO2 ABG pO2 ABG HCO3 ABG O2 Saturation ABG Base Excess ABG Hemoglobin Oxyhemoglobin Sodium Potassium Chloride Carbon Dioxide BUN Creatinine Glucose POC Glucose Lactic Acid 3.30 H* Calcium Ionized Calcium Phosphorus Magnesium Iron TIBC Ferritin Total Bilirubin 6.20 H Direct Bilirubin 5.9 H AST 800 H ALT 120 H Alkaline Phosphatase Total Creatine Kinase CK-MB (CK-2) Troponin T C-Reactive Protein Serum Total Protein Total Protein 4.4 L Albumin 2.4 L Uccjc-9-Qtanzlgvj Hroqk-1-Mvvvmpmjr PEP Interpretation Triglycerides LDL Cholesterol Direct HDL Cholesterol Free T4 PTH Intact Urine WBC (Auto) Urine Creatinine Salicylates Acetaminophen Crossmatch 03/16/19 03/16/19 03/16/19 21:45 22:32 Unknown WBC RBC Hgb Hct MCV MCHC RDW Plt Count Lymph % (Auto) [place] % (Auto) Eos % (Auto) Lymph # [place] # Eos # Seg Neutrophils % Seg Neuts % (Manual) Lymphocytes % (Manual) Monocytes % (Manual) Nucleated RBC % Seg Neutrophils # Seg Neutrophils # Man Lymphocytes # (Manual) Monocytes # (Manual) PT INR D-Dimer Heparin Anti-Xa Level POC ABG pH ABG pH POC ABG pCO2 POC ABG pO2 ABG pO2 ABG HCO3 ABG O2 Saturation ABG Base Excess ABG Hemoglobin Oxyhemoglobin Sodium Potassium Chloride Carbon Dioxide BUN Creatinine Glucose POC Glucose Lactic Acid 3.30 H* 3.00 H* Calcium Ionized Calcium Phosphorus Magnesium Iron TIBC Ferritin Total Bilirubin Direct Bilirubin AST ALT Alkaline Phosphatase Total Creatine Kinase CK-MB (CK-2) Troponin T 0.047 H D C-Reactive Protein Serum Total Protein Total Protein Albumin Gzuql-2-Zgyosixch Yxhhx-5-Rsfpfgylw PEP Interpretation Triglycerides 395 H LDL Cholesterol Direct 10 L HDL Cholesterol 7 L Free T4 PTH Intact Urine WBC (Auto) Urine Creatinine Salicylates Acetaminophen Crossmatch 03/17/19 03/17/19 03/17/19 03:45 03:45 03:45 WBC RBC Hgb Hct MCV MCHC RDW Plt Count Lymph % (Auto) [place] % (Auto) Eos % (Auto) Lymph # [place] # Eos # Seg Neutrophils % Seg Neuts % (Manual) Lymphocytes % (Manual) Monocytes % (Manual) Nucleated RBC % Seg Neutrophils # Seg Neutrophils # Man Lymphocytes # (Manual) Monocytes # (Manual) PT INR D-Dimer Heparin Anti-Xa Level POC ABG pH ABG pH POC ABG pCO2 POC ABG pO2 ABG pO2 ABG HCO3 ABG O2 Saturation ABG Base Excess ABG Hemoglobin Oxyhemoglobin Sodium 131 L Potassium Chloride 88.9 L Carbon Dioxide BUN 53 H Creatinine 7.1 H Glucose POC Glucose Lactic Acid 4.10 H* Calcium 5.4 L* D Ionized Calcium Phosphorus 7.30 H Magnesium 1.60 L Iron TIBC Ferritin Total Bilirubin 5.90 H Direct Bilirubin AST 801 H ALT 109 H Alkaline Phosphatase Total Creatine Kinase 12955 H 23705 H CK-MB (CK-2) 41.5 H Troponin T 0.054 H C-Reactive Protein Serum Total Protein Total Protein 4.5 L Albumin 2.0 L Jhsle-9-Rennkcofl Qzlwe-7-Npfddxlsv PEP Interpretation Triglycerides LDL Cholesterol Direct HDL Cholesterol Free T4 PTH Intact Urine WBC (Auto) Urine Creatinine Salicylates Acetaminophen Crossmatch 03/17/19 03/17/19 03/17/19 05:47 07:16 07:16 WBC RBC Hgb Hct MCV MCHC RDW Plt Count Lymph % (Auto) [place] % (Auto) Eos % (Auto) Lymph # [place] # Eos # Seg Neutrophils % Seg Neuts % (Manual) Lymphocytes % (Manual) Monocytes % (Manual) Nucleated RBC % Seg Neutrophils # Seg Neutrophils # Man Lymphocytes # (Manual) Monocytes # (Manual) PT INR D-Dimer Heparin Anti-Xa Level POC ABG pH 7.193 L ABG pH POC ABG pCO2 45.2 H POC ABG pO2 65 L ABG pO2 ABG HCO3 ABG O2 Saturation ABG Base Excess ABG Hemoglobin Oxyhemoglobin Sodium Potassium Chloride Carbon Dioxide BUN Creatinine Glucose POC Glucose Lactic Acid 5.50 H* Calcium Ionized Calcium Phosphorus Magnesium Iron TIBC Ferritin Total Bilirubin Direct Bilirubin AST ALT Alkaline Phosphatase Total Creatine Kinase 81389 H CK-MB (CK-2) 54.3 H Troponin T 0.058 H C-Reactive Protein Serum Total Protein Total Protein Albumin Zykiw-6-Vkikoptzb Ddzai-4-Dlngavuuu PEP Interpretation Triglycerides LDL Cholesterol Direct HDL Cholesterol Free T4 PTH Intact Urine WBC (Auto) Urine Creatinine Salicylates Acetaminophen Crossmatch 03/17/19 03/17/19 03/17/19 11:52 12:51 13:01 WBC RBC Hgb Hct MCV MCHC RDW Plt Count Lymph % (Auto) [place] % (Auto) Eos % (Auto) Lymph # [place] # Eos # Seg Neutrophils % Seg Neuts % (Manual) Lymphocytes % (Manual) Monocytes % (Manual) Nucleated RBC % Seg Neutrophils # Seg Neutrophils # Man Lymphocytes # (Manual) Monocytes # (Manual) PT INR D-Dimer Heparin Anti-Xa Level POC ABG pH 7.154 L ABG pH POC ABG pCO2 34.3 L POC ABG pO2 73 L ABG pO2 ABG HCO3 ABG O2 Saturation ABG Base Excess ABG Hemoglobin Oxyhemoglobin Sodium Potassium Chloride Carbon Dioxide BUN Creatinine Glucose POC Glucose 60 L Lactic Acid 8.20 H* Calcium Ionized Calcium Phosphorus Magnesium Iron TIBC Ferritin Total Bilirubin Direct Bilirubin AST ALT Alkaline Phosphatase Total Creatine Kinase CK-MB (CK-2) Troponin T C-Reactive Protein Serum Total Protein Total Protein Albumin Hwxxc-7-Ydplxnaqy Klrhf-6-Sptawoarx PEP Interpretation Triglycerides LDL Cholesterol Direct HDL Cholesterol Free T4 PTH Intact Urine WBC (Auto) Urine Creatinine Salicylates Acetaminophen Crossmatch 03/17/19 03/17/19 03/17/19 14:37 14:37 14:37 WBC 29.3 H RBC Hgb Hct MCV MCHC RDW 15.8 H Plt Count 45 L Lymph % (Auto) [place] % (Auto) Eos % (Auto) Lymph # [place] # Eos # Seg Neutrophils % Seg Neuts % (Manual) 81.0 H Lymphocytes % (Manual) 1.0 L Monocytes % (Manual) 15.0 H Nucleated RBC % Seg Neutrophils # Seg Neutrophils # Man 23.7 H Lymphocytes # (Manual) 0.3 L Monocytes # (Manual) 4.4 H PT INR D-Dimer Heparin Anti-Xa Level POC ABG pH ABG pH POC ABG pCO2 POC ABG pO2 ABG pO2 ABG HCO3 ABG O2 Saturation ABG Base Excess ABG Hemoglobin Oxyhemoglobin Sodium Potassium Chloride Carbon Dioxide BUN Creatinine Glucose POC Glucose Lactic Acid 4.90 H* Calcium Ionized Calcium Phosphorus Magnesium Iron TIBC Ferritin Total Bilirubin Direct Bilirubin AST ALT Alkaline Phosphatase Total Creatine Kinase CK-MB (CK-2) Troponin T C-Reactive Protein 24.90 H Serum Total Protein Total Protein Albumin Xmfku-1-Cwtcacplj Tlyhc-4-Wwsaptxyk PEP Interpretation Triglycerides LDL Cholesterol Direct HDL Cholesterol Free T4 PTH Intact Urine WBC (Auto) Urine Creatinine Salicylates Acetaminophen Crossmatch 03/17/19 03/17/19 03/17/19 16:05 16:05 17:02 WBC RBC Hgb Hct MCV MCHC RDW Plt Count Lymph % (Auto) [place] % (Auto) Eos % (Auto) Lymph # [place] # Eos # Seg Neutrophils % Seg Neuts % (Manual) Lymphocytes % (Manual) Monocytes % (Manual) Nucleated RBC % Seg Neutrophils # Seg Neutrophils # Man Lymphocytes # (Manual) Monocytes # (Manual) PT INR D-Dimer Heparin Anti-Xa Level POC ABG pH 7.183 L ABG pH POC ABG pCO2 POC ABG pO2 65 L ABG pO2 ABG HCO3 ABG O2 Saturation ABG Base Excess ABG Hemoglobin Oxyhemoglobin Sodium Potassium Chloride Carbon Dioxide BUN Creatinine Glucose POC Glucose Lactic Acid Calcium Ionized Calcium Phosphorus Magnesium Iron TIBC Ferritin Total Bilirubin Direct Bilirubin AST ALT Alkaline Phosphatase Total Creatine Kinase CK-MB (CK-2) Troponin T C-Reactive Protein Serum Total Protein Total Protein Albumin Kstyr-7-Mgrkyacft Zdbjn-0-Bdtswohvi PEP Interpretation Triglycerides LDL Cholesterol Direct HDL Cholesterol Free T4 PTH Intact Urine WBC (Auto) 30.0 H Urine Creatinine 106.6 H Salicylates Acetaminophen Crossmatch 03/18/19 03/18/19 03/18/19 05:12 05:16 05:53 WBC RBC Hgb Hct MCV MCHC RDW Plt Count Lymph % (Auto) [place] % (Auto) Eos % (Auto) Lymph # [place] # Eos # Seg Neutrophils % Seg Neuts % (Manual) Lymphocytes % (Manual) Monocytes % (Manual) Nucleated RBC % Seg Neutrophils # Seg Neutrophils # Man Lymphocytes # (Manual) Monocytes # (Manual) PT INR D-Dimer Heparin Anti-Xa Level POC ABG pH 7.257 L ABG pH POC ABG pCO2 31.6 L POC ABG pO2 69 L ABG pO2 ABG HCO3 ABG O2 Saturation ABG Base Excess ABG Hemoglobin Oxyhemoglobin Sodium Potassium Chloride Carbon Dioxide BUN Creatinine Glucose POC Glucose 141 H Lactic Acid 5.00 H* Calcium Ionized Calcium Phosphorus Magnesium Iron TIBC Ferritin Total Bilirubin Direct Bilirubin AST ALT Alkaline Phosphatase Total Creatine Kinase CK-MB (CK-2) Troponin T C-Reactive Protein Serum Total Protein Total Protein Albumin Uamjy-0-Gbgzhbqnf Dxpli-1-Einwrkxbo PEP Interpretation Triglycerides LDL Cholesterol Direct HDL Cholesterol Free T4 PTH Intact Urine WBC (Auto) Urine Creatinine Salicylates Acetaminophen Crossmatch 03/18/19 03/18/19 03/18/19 06:57 08:40 08:40 WBC 31.7 H RBC Hgb Hct MCV MCHC RDW 15.5 H Plt Count 35 L Lymph % (Auto) [place] % (Auto) Eos % (Auto) Lymph # [place] # Eos # Seg Neutrophils % Seg Neuts % (Manual) Lymphocytes % (Manual) Monocytes % (Manual) Nucleated RBC % Seg Neutrophils # Seg Neutrophils # Man Lymphocytes # (Manual) Monocytes # (Manual) PT INR D-Dimer Heparin Anti-Xa Level POC ABG pH ABG pH POC ABG pCO2 POC ABG pO2 ABG pO2 ABG HCO3 ABG O2 Saturation ABG Base Excess ABG Hemoglobin Oxyhemoglobin Sodium 132 L Potassium 5.5 H D Chloride 88.5 L Carbon Dioxide 18 L BUN 71 H Creatinine 8.1 H Glucose 205 H POC Glucose Lactic Acid 5.00 H* Calcium 4.1 L* D Ionized Calcium Phosphorus Magnesium 2.40 H Iron TIBC Ferritin Total Bilirubin 7.50 H Direct Bilirubin AST 1088 H ALT 159 H Alkaline Phosphatase 190 H Total Creatine Kinase 695803 H CK-MB (CK-2) Troponin T C-Reactive Protein Serum Total Protein Total Protein 4.7 L Albumin 1.8 L Jlnnf-5-Tnaqmxaob Vjdmq-1-Uesakbbly PEP Interpretation Triglycerides LDL Cholesterol Direct HDL Cholesterol Free T4 PTH Intact Urine WBC (Auto) Urine Creatinine Salicylates Acetaminophen Crossmatch 03/18/19 03/18/19 03/18/19 12:33 12:50 13:19 WBC RBC Hgb Hct MCV MCHC RDW Plt Count Lymph % (Auto) [place] % (Auto) Eos % (Auto) Lymph # [place] # Eos # Seg Neutrophils % Seg Neuts % (Manual) Lymphocytes % (Manual) Monocytes % (Manual) Nucleated RBC % Seg Neutrophils # Seg Neutrophils # Man Lymphocytes # (Manual) Monocytes # (Manual) PT INR D-Dimer Heparin Anti-Xa Level POC ABG pH 7.282 L ABG pH POC ABG pCO2 POC ABG pO2 67 L ABG pO2 ABG HCO3 ABG O2 Saturation ABG Base Excess ABG Hemoglobin Oxyhemoglobin Sodium Potassium Chloride Carbon Dioxide BUN Creatinine Glucose POC Glucose 129 H Lactic Acid 3.30 H* Calcium Ionized Calcium Phosphorus Magnesium Iron TIBC Ferritin Total Bilirubin Direct Bilirubin AST ALT Alkaline Phosphatase Total Creatine Kinase CK-MB (CK-2) Troponin T C-Reactive Protein Serum Total Protein Total Protein Albumin Duqdy-8-Qmofspoyo Duqkt-5-Xierpmdsp PEP Interpretation Triglycerides LDL Cholesterol Direct HDL Cholesterol Free T4 PTH Intact Urine WBC (Auto) Urine Creatinine Salicylates Acetaminophen Crossmatch 03/18/19 03/18/19 03/18/19 13:19 16:50 18:11 WBC RBC Hgb Hct MCV MCHC RDW Plt Count Lymph % (Auto) [place] % (Auto) Eos % (Auto) Lymph # [place] # Eos # Seg Neutrophils % Seg Neuts % (Manual) Lymphocytes % (Manual) Monocytes % (Manual) Nucleated RBC % Seg Neutrophils # Seg Neutrophils # Man Lymphocytes # (Manual) Monocytes # (Manual) PT INR D-Dimer Heparin Anti-Xa Level POC ABG pH ABG pH POC ABG pCO2 POC ABG pO2 59 L ABG pO2 ABG HCO3 ABG O2 Saturation ABG Base Excess ABG Hemoglobin Oxyhemoglobin Sodium Potassium Chloride Carbon Dioxide BUN Creatinine Glucose POC Glucose 151 H Lactic Acid Calcium 4.2 L* Ionized Calcium Phosphorus Magnesium Iron TIBC Ferritin Total Bilirubin Direct Bilirubin AST ALT Alkaline Phosphatase Total Creatine Kinase 244911 H CK-MB (CK-2) Troponin T C-Reactive Protein Serum Total Protein Total Protein Albumin Hcmeu-9-Fatozgaln Pkbce-1-Pulueclbk PEP Interpretation Triglycerides LDL Cholesterol Direct HDL Cholesterol Free T4 PTH Intact Urine WBC (Auto) Urine Creatinine Salicylates Acetaminophen Crossmatch 03/18/19 03/18/19 03/19/19 18:20 23:39 01:42 WBC RBC Hgb Hct MCV MCHC RDW Plt Count Lymph % (Auto) [place] % (Auto) Eos % (Auto) Lymph # [place] # Eos # Seg Neutrophils % Seg Neuts % (Manual) Lymphocytes % (Manual) Monocytes % (Manual) Nucleated RBC % Seg Neutrophils # Seg Neutrophils # Man Lymphocytes # (Manual) Monocytes # (Manual) PT INR D-Dimer Heparin Anti-Xa Level POC ABG pH 7.345 L ABG pH 7.285 L POC ABG pCO2 POC ABG pO2 59 L ABG pO2 44.0 L ABG HCO3 ABG O2 Saturation 70.9 L ABG Base Excess -5.7 L ABG Hemoglobin 11.9 L Oxyhemoglobin 69.6 L Sodium Potassium Chloride Carbon Dioxide BUN Creatinine Glucose POC Glucose 152 H Lactic Acid Calcium Ionized Calcium Phosphorus Magnesium Iron TIBC Ferritin Total Bilirubin Direct Bilirubin AST ALT Alkaline Phosphatase Total Creatine Kinase CK-MB (CK-2) Troponin T C-Reactive Protein Serum Total Protein Total Protein Albumin Irohz-2-Yhmslfxka Qfmeq-1-Eulbmfrpo PEP Interpretation Triglycerides LDL Cholesterol Direct HDL Cholesterol Free T4 PTH Intact Urine WBC (Auto) Urine Creatinine Salicylates Acetaminophen Crossmatch 03/19/19 03/19/19 03/19/19 04:00 04:00 05:35 WBC 36.5 H RBC Hgb Hct MCV MCHC RDW 15.8 H Plt Count 35 L Lymph % (Auto) [place] % (Auto) Eos % (Auto) Lymph # [place] # Eos # Seg Neutrophils % Seg Neuts % (Manual) Lymphocytes % (Manual) Monocytes % (Manual) Nucleated RBC % Seg Neutrophils # Seg Neutrophils # Man Lymphocytes # (Manual) Monocytes # (Manual) PT INR D-Dimer Heparin Anti-Xa Level POC ABG pH ABG pH 7.265 L POC ABG pCO2 POC ABG pO2 ABG pO2 35.4 L* ABG HCO3 ABG O2 Saturation 54.4 L ABG Base Excess -6.7 L ABG Hemoglobin 12.9 L Oxyhemoglobin 53.4 L Sodium 132 L Potassium 5.7 H Chloride 89.8 L Carbon Dioxide 19 L BUN 62 H Creatinine 6.4 H Glucose 151 H POC Glucose Lactic Acid Calcium 5.2 L* D Ionized Calcium Phosphorus Magnesium Iron TIBC Ferritin Total Bilirubin 7.80 H Direct Bilirubin AST 682 H ALT 130 H Alkaline Phosphatase 167 H Total Creatine Kinase CK-MB (CK-2) Troponin T C-Reactive Protein Serum Total Protein Total Protein 4.8 L Albumin 2.3 L Sxmth-4-Oymzrwlzt Hcdka-1-Uxcilvdaj PEP Interpretation Triglycerides LDL Cholesterol Direct HDL Cholesterol Free T4 PTH Intact Urine WBC (Auto) Urine Creatinine Salicylates Acetaminophen Crossmatch 03/19/19 03/19/19 03/19/19 05:49 09:16 09:50 WBC RBC Hgb Hct MCV MCHC RDW Plt Count Lymph % (Auto) [place] % (Auto) Eos % (Auto) Lymph # [place] # Eos # Seg Neutrophils % Seg Neuts % (Manual) Lymphocytes % (Manual) Monocytes % (Manual) Nucleated RBC % Seg Neutrophils # Seg Neutrophils # Man Lymphocytes # (Manual) Monocytes # (Manual) PT INR D-Dimer Heparin Anti-Xa Level POC ABG pH 7.222 L ABG pH POC ABG pCO2 56.6 H POC ABG pO2 ABG pO2 ABG HCO3 ABG O2 Saturation ABG Base Excess ABG Hemoglobin Oxyhemoglobin Sodium Potassium Chloride Carbon Dioxide BUN Creatinine Glucose POC Glucose 154 H Lactic Acid 2.70 H* Calcium Ionized Calcium Phosphorus Magnesium Iron TIBC Ferritin Total Bilirubin Direct Bilirubin AST ALT Alkaline Phosphatase Total Creatine Kinase CK-MB (CK-2) Troponin T C-Reactive Protein Serum Total Protein Total Protein Albumin Vepik-8-Yhevfopss Hzeiq-4-Gsnjdpvbo PEP Interpretation Triglycerides LDL Cholesterol Direct HDL Cholesterol Free T4 PTH Intact Urine WBC (Auto) Urine Creatinine Salicylates Acetaminophen Crossmatch 03/19/19 03/19/19 03/19/19 09:50 11:28 17:58 WBC RBC Hgb Hct MCV MCHC RDW Plt Count Lymph % (Auto) [place] % (Auto) Eos % (Auto) Lymph # [place] # Eos # Seg Neutrophils % Seg Neuts % (Manual) Lymphocytes % (Manual) Monocytes % (Manual) Nucleated RBC % Seg Neutrophils # Seg Neutrophils # Man Lymphocytes # (Manual) Monocytes # (Manual) PT INR D-Dimer Heparin Anti-Xa Level POC ABG pH 7.250 L ABG pH POC ABG pCO2 52.6 H POC ABG pO2 ABG pO2 ABG HCO3 ABG O2 Saturation ABG Base Excess ABG Hemoglobin Oxyhemoglobin Sodium Potassium Chloride Carbon Dioxide BUN Creatinine Glucose POC Glucose 160 H Lactic Acid Calcium Ionized Calcium Phosphorus Magnesium Iron TIBC Ferritin Total Bilirubin Direct Bilirubin AST ALT Alkaline Phosphatase Total Creatine Kinase 01266 H CK-MB (CK-2) Troponin T C-Reactive Protein Serum Total Protein Total Protein Albumin Hrwzp-2-Qbittuuzl Dkiao-0-Dpomchnea PEP Interpretation Triglycerides LDL Cholesterol Direct HDL Cholesterol Free T4 PTH Intact Urine WBC (Auto) Urine Creatinine Salicylates Acetaminophen Crossmatch 03/19/19 03/19/19 03/20/19 19:48 21:03 02:16 WBC RBC Hgb Hct MCV MCHC RDW Plt Count Lymph % (Auto) [place] % (Auto) Eos % (Auto) Lymph # [place] # Eos # Seg Neutrophils % Seg Neuts % (Manual) Lymphocytes % (Manual) Monocytes % (Manual) Nucleated RBC % Seg Neutrophils # Seg Neutrophils # Man Lymphocytes # (Manual) Monocytes # (Manual) PT INR D-Dimer Heparin Anti-Xa Level POC ABG pH 7.279 L ABG pH POC ABG pCO2 50.3 H POC ABG pO2 129 H ABG pO2 ABG HCO3 ABG O2 Saturation ABG Base Excess ABG Hemoglobin Oxyhemoglobin Sodium Potassium Chloride Carbon Dioxide BUN Creatinine Glucose POC Glucose 119 H 119 H Lactic Acid Calcium Ionized Calcium Phosphorus Magnesium Iron TIBC Ferritin Total Bilirubin Direct Bilirubin AST ALT Alkaline Phosphatase Total Creatine Kinase CK-MB (CK-2) Troponin T C-Reactive Protein Serum Total Protein Total Protein Albumin Munmi-3-Wkumpsjtf Mjybr-1-Qdgsqsosb PEP Interpretation Triglycerides LDL Cholesterol Direct HDL Cholesterol Free T4 PTH Intact Urine WBC (Auto) Urine Creatinine Salicylates Acetaminophen Crossmatch 03/20/19 03/20/19 03/20/19 04:23 05:05 09:30 WBC 36.3 H RBC Hgb Hct MCV MCHC RDW 15.5 H Plt Count 29 L Lymph % (Auto) [place] % (Auto) Eos % (Auto) Lymph # [place] # Eos # Seg Neutrophils % Seg Neuts % (Manual) Lymphocytes % (Manual) Monocytes % (Manual) Nucleated RBC % Seg Neutrophils # Seg Neutrophils # Man Lymphocytes # (Manual) Monocytes # (Manual) PT INR D-Dimer Heparin Anti-Xa Level POC ABG pH ABG pH POC ABG pCO2 POC ABG pO2 280 H ABG pO2 ABG HCO3 ABG O2 Saturation ABG Base Excess ABG Hemoglobin Oxyhemoglobin Sodium Potassium Chloride Carbon Dioxide BUN Creatinine Glucose POC Glucose 115 H Lactic Acid Calcium Ionized Calcium Phosphorus Magnesium Iron TIBC Ferritin Total Bilirubin Direct Bilirubin AST ALT Alkaline Phosphatase Total Creatine Kinase CK-MB (CK-2) Troponin T C-Reactive Protein Serum Total Protein Total Protein Albumin Kkikr-8-Xqwbgwfza Qhwym-4-Jclztunml PEP Interpretation Triglycerides LDL Cholesterol Direct HDL Cholesterol Free T4 PTH Intact Urine WBC (Auto) Urine Creatinine Salicylates Acetaminophen Crossmatch 03/20/19 03/20/19 03/20/19 09:30 09:30 11:34 WBC RBC Hgb Hct MCV MCHC RDW Plt Count Lymph % (Auto) [place] % (Auto) Eos % (Auto) Lymph # [place] # Eos # Seg Neutrophils % Seg Neuts % (Manual) Lymphocytes % (Manual) Monocytes % (Manual) Nucleated RBC % Seg Neutrophils # Seg Neutrophils # Man Lymphocytes # (Manual) Monocytes # (Manual) PT INR D-Dimer Heparin Anti-Xa Level POC ABG pH ABG pH POC ABG pCO2 POC ABG pO2 ABG pO2 ABG HCO3 ABG O2 Saturation ABG Base Excess ABG Hemoglobin Oxyhemoglobin Sodium 131 L Potassium Chloride 92.3 L Carbon Dioxide 20 L BUN 68 H Creatinine 6.1 H Glucose 164 H POC Glucose 141 H Lactic Acid Calcium 5.3 L* Ionized Calcium Phosphorus Magnesium Iron TIBC Ferritin Total Bilirubin 9.50 H Direct Bilirubin AST 381 H ALT 116 H Alkaline Phosphatase 255 H Total Creatine Kinase 68622 H CK-MB (CK-2) Troponin T C-Reactive Protein Serum Total Protein Total Protein 5.1 L Albumin 2.3 L Bxlbh-4-Flrwehloe Srolp-5-Mgltwlnnc PEP Interpretation Triglycerides LDL Cholesterol Direct HDL Cholesterol Free T4 PTH Intact Urine WBC (Auto) Urine Creatinine Salicylates Acetaminophen Crossmatch 03/20/19 03/20/19 03/20/19 14:41 14:45 18:50 WBC RBC Hgb Hct MCV MCHC RDW Plt Count Lymph % (Auto) [place] % (Auto) Eos % (Auto) Lymph # [place] # Eos # Seg Neutrophils % Seg Neuts % (Manual) Lymphocytes % (Manual) Monocytes % (Manual) Nucleated RBC % Seg Neutrophils # Seg Neutrophils # Man Lymphocytes # (Manual) Monocytes # (Manual) PT INR D-Dimer Heparin Anti-Xa Level POC ABG pH ABG pH POC ABG pCO2 POC ABG pO2 ABG pO2 ABG HCO3 ABG O2 Saturation ABG Base Excess ABG Hemoglobin Oxyhemoglobin Sodium Potassium Chloride Carbon Dioxide BUN Creatinine Glucose POC Glucose 117 H Lactic Acid 2.90 H* Calcium Ionized Calcium Phosphorus Magnesium Iron TIBC Ferritin Total Bilirubin Direct Bilirubin AST ALT Alkaline Phosphatase Total Creatine Kinase CK-MB (CK-2) Troponin T C-Reactive Protein 13.30 H Serum Total Protein Total Protein Albumin Tpdse-1-Munrrhhry Gflyy-1-Vxfejreag PEP Interpretation Triglycerides LDL Cholesterol Direct HDL Cholesterol Free T4 PTH Intact Urine WBC (Auto) Urine Creatinine Salicylates Acetaminophen Crossmatch 03/20/19 03/21/19 03/21/19 21:55 04:26 04:26 WBC 37.8 H RBC Hgb Hct MCV MCHC RDW 15.4 H Plt Count 36 L Lymph % (Auto) [place] % (Auto) Eos % (Auto) Lymph # [place] # Eos # Seg Neutrophils % Seg Neuts % (Manual) 93.0 H Lymphocytes % (Manual) 3.0 L Monocytes % (Manual) Nucleated RBC % 1.0 H Seg Neutrophils # 34.6 H Seg Neutrophils # Man 35.2 H Lymphocytes # (Manual) 1.1 L Monocytes # (Manual) PT INR D-Dimer Heparin Anti-Xa Level POC ABG pH ABG pH POC ABG pCO2 POC ABG pO2 ABG pO2 ABG HCO3 ABG O2 Saturation ABG Base Excess ABG Hemoglobin Oxyhemoglobin Sodium 131 L Potassium Chloride 90.7 L Carbon Dioxide 21 L BUN 69 H Creatinine 5.7 H Glucose 170 H POC Glucose 128 H Lactic Acid Calcium 6.1 L D Ionized Calcium Phosphorus Magnesium Iron TIBC Ferritin Total Bilirubin 9.50 H Direct Bilirubin AST 308 H ALT 124 H Alkaline Phosphatase 327 H Total Creatine Kinase 02949 H CK-MB (CK-2) Troponin T C-Reactive Protein Serum Total Protein Total Protein 5.7 L Albumin 2.6 L Ethij-5-Hgkrzftde Hlwgn-2-Vndknjlkz PEP Interpretation Triglycerides LDL Cholesterol Direct HDL Cholesterol Free T4 PTH Intact Urine WBC (Auto) Urine Creatinine Salicylates Acetaminophen Crossmatch 03/21/19 03/21/19 03/21/19 05:17 05:39 08:29 WBC RBC Hgb Hct MCV MCHC RDW Plt Count Lymph % (Auto) [place] % (Auto) Eos % (Auto) Lymph # [place] # Eos # Seg Neutrophils % Seg Neuts % (Manual) Lymphocytes % (Manual) Monocytes % (Manual) Nucleated RBC % Seg Neutrophils # Seg Neutrophils # Man Lymphocytes # (Manual) Monocytes # (Manual) PT INR D-Dimer Heparin Anti-Xa Level POC ABG pH ABG pH POC ABG pCO2 POC ABG pO2 209 H ABG pO2 ABG HCO3 ABG O2 Saturation ABG Base Excess ABG Hemoglobin Oxyhemoglobin Sodium Potassium Chloride Carbon Dioxide BUN Creatinine Glucose POC Glucose 145 H Lactic Acid Calcium Ionized Calcium Phosphorus Magnesium Iron TIBC Ferritin Total Bilirubin Direct Bilirubin AST ALT Alkaline Phosphatase Total Creatine Kinase 90795 H CK-MB (CK-2) Troponin T C-Reactive Protein Serum Total Protein Total Protein Albumin Qddgo-5-Kikhdevaz Zxmbc-0-Zwaqqkzit PEP Interpretation Triglycerides LDL Cholesterol Direct HDL Cholesterol Free T4 PTH Intact Urine WBC (Auto) Urine Creatinine Salicylates Acetaminophen Crossmatch 03/21/19 03/21/19 03/21/19 08:29 11:43 12:00 WBC RBC Hgb Hct MCV MCHC RDW Plt Count Lymph % (Auto) [place] % (Auto) Eos % (Auto) Lymph # [place] # Eos # Seg Neutrophils % Seg Neuts % (Manual) Lymphocytes % (Manual) Monocytes % (Manual) Nucleated RBC % Seg Neutrophils # Seg Neutrophils # Man Lymphocytes # (Manual) Monocytes # (Manual) PT INR D-Dimer Heparin Anti-Xa Level POC ABG pH ABG pH POC ABG pCO2 POC ABG pO2 ABG pO2 ABG HCO3 ABG O2 Saturation ABG Base Excess ABG Hemoglobin Oxyhemoglobin Sodium Potassium Chloride Carbon Dioxide BUN Creatinine Glucose POC Glucose 123 H Lactic Acid 2.60 H* 2.20 H* Calcium Ionized Calcium Phosphorus Magnesium Iron TIBC Ferritin Total Bilirubin Direct Bilirubin AST ALT Alkaline Phosphatase Total Creatine Kinase CK-MB (CK-2) Troponin T C-Reactive Protein Serum Total Protein Total Protein Albumin Pubxn-7-Xogxqocqv Ujjdx-3-Jcytcikro PEP Interpretation Triglycerides LDL Cholesterol Direct HDL Cholesterol Free T4 PTH Intact Urine WBC (Auto) Urine Creatinine Salicylates Acetaminophen Crossmatch 03/21/19 03/21/19 03/21/19 14:11 18:28 19:32 WBC RBC Hgb Hct MCV MCHC RDW Plt Count Lymph % (Auto) [place] % (Auto) Eos % (Auto) Lymph # [place] # Eos # Seg Neutrophils % Seg Neuts % (Manual) Lymphocytes % (Manual) Monocytes % (Manual) Nucleated RBC % Seg Neutrophils # Seg Neutrophils # Man Lymphocytes # (Manual) Monocytes # (Manual) PT INR D-Dimer Heparin Anti-Xa Level POC ABG pH 7.293 L ABG pH POC ABG pCO2 POC ABG pO2 ABG pO2 ABG HCO3 ABG O2 Saturation ABG Base Excess ABG Hemoglobin Oxyhemoglobin Sodium Potassium Chloride Carbon Dioxide BUN Creatinine Glucose POC Glucose 153 H Lactic Acid 2.10 H* Calcium Ionized Calcium Phosphorus Magnesium Iron TIBC Ferritin Total Bilirubin Direct Bilirubin AST ALT Alkaline Phosphatase Total Creatine Kinase CK-MB (CK-2) Troponin T C-Reactive Protein Serum Total Protein Total Protein Albumin Kjuff-4-Wrtpqyhzy Gqrzz-5-Nndgxzwtd PEP Interpretation Triglycerides LDL Cholesterol Direct HDL Cholesterol Free T4 PTH Intact Urine WBC (Auto) Urine Creatinine Salicylates Acetaminophen Crossmatch 03/21/19 03/22/19 03/22/19 23:38 05:08 05:51 WBC RBC Hgb Hct MCV MCHC RDW Plt Count Lymph % (Auto) [place] % (Auto) Eos % (Auto) Lymph # [place] # Eos # Seg Neutrophils % Seg Neuts % (Manual) Lymphocytes % (Manual) Monocytes % (Manual) Nucleated RBC % Seg Neutrophils # Seg Neutrophils # Man Lymphocytes # (Manual) Monocytes # (Manual) PT INR D-Dimer Heparin Anti-Xa Level POC ABG pH 7.283 L ABG pH POC ABG pCO2 POC ABG pO2 53 L ABG pO2 ABG HCO3 ABG O2 Saturation ABG Base Excess ABG Hemoglobin Oxyhemoglobin Sodium Potassium Chloride Carbon Dioxide BUN Creatinine Glucose POC Glucose 149 H 131 H Lactic Acid Calcium Ionized Calcium Phosphorus Magnesium Iron TIBC Ferritin Total Bilirubin Direct Bilirubin AST ALT Alkaline Phosphatase Total Creatine Kinase CK-MB (CK-2) Troponin T C-Reactive Protein Serum Total Protein Total Protein Albumin Jwfyf-7-Zfxjywhtj Fywyo-8-Nvveixqkw PEP Interpretation Triglycerides LDL Cholesterol Direct HDL Cholesterol Free T4 PTH Intact Urine WBC (Auto) Urine Creatinine Salicylates Acetaminophen Crossmatch 03/22/19 03/22/19 03/22/19 08:00 08:00 18:19 WBC 36.7 H RBC Hgb 11.0 L Hct 33.5 L MCV MCHC RDW 15.5 H Plt Count 43 L Lymph % (Auto) [place] % (Auto) Eos % (Auto) Lymph # [place] # Eos # Seg Neutrophils % Seg Neuts % (Manual) 87.0 H Lymphocytes % (Manual) 7.0 L Monocytes % (Manual) Nucleated RBC % Seg Neutrophils # Seg Neutrophils # Man 31.9 H Lymphocytes # (Manual) Monocytes # (Manual) PT INR D-Dimer Heparin Anti-Xa Level POC ABG pH ABG pH POC ABG pCO2 46.4 H POC ABG pO2 108 H ABG pO2 ABG HCO3 ABG O2 Saturation ABG Base Excess ABG Hemoglobin Oxyhemoglobin Sodium 132 L Potassium 5.6 H Chloride 89.6 L Carbon Dioxide 20 L BUN 101 H Creatinine 7.4 H Glucose 124 H POC Glucose Lactic Acid Calcium 5.2 L* Ionized Calcium Phosphorus Magnesium Iron TIBC Ferritin Total Bilirubin 2.80 H Direct Bilirubin AST 119 H ALT 86 H Alkaline Phosphatase 245 H Total Creatine Kinase CK-MB (CK-2) Troponin T C-Reactive Protein Serum Total Protein Total Protein 5.6 L Albumin 2.5 L Wxpqv-1-Euswxrrfv Hryhk-5-Pnrpivvgx PEP Interpretation Triglycerides LDL Cholesterol Direct HDL Cholesterol Free T4 PTH Intact Urine WBC (Auto) Urine Creatinine Salicylates Acetaminophen Crossmatch 03/22/19 03/23/19 03/23/19 20:37 04:49 05:28 WBC 35.9 H RBC Hgb 10.8 L Hct 33.2 L MCV MCHC RDW 15.5 H Plt Count 49 L Lymph % (Auto) [place] % (Auto) Eos % (Auto) Lymph # [place] # Eos # Seg Neutrophils % Seg Neuts % (Manual) 81.0 H Lymphocytes % (Manual) 3.5 L Monocytes % (Manual) Nucleated RBC % Seg Neutrophils # Seg Neutrophils # Man 29.1 H Lymphocytes # (Manual) Monocytes # (Manual) 1.4 H PT INR D-Dimer Heparin Anti-Xa Level POC ABG pH 7.296 L ABG pH POC ABG pCO2 46.2 H POC ABG pO2 ABG pO2 ABG HCO3 ABG O2 Saturation ABG Base Excess ABG Hemoglobin Oxyhemoglobin Sodium 129 L Potassium 5.2 H Chloride 91.1 L Carbon Dioxide BUN 91 H Creatinine 6.6 H Glucose 190 H POC Glucose Lactic Acid Calcium 5.3 L* Ionized Calcium Phosphorus Magnesium Iron TIBC Ferritin Total Bilirubin 1.80 H Direct Bilirubin AST 80 H ALT 62 H Alkaline Phosphatase 209 H Total Creatine Kinase 9758 H CK-MB (CK-2) Troponin T C-Reactive Protein Serum Total Protein Total Protein 5.2 L Albumin 2.2 L Tftbv-6-Feispvugl Gertz-0-Wotbzoutg PEP Interpretation Triglycerides LDL Cholesterol Direct HDL Cholesterol Free T4 PTH Intact Urine WBC (Auto) Urine Creatinine Salicylates Acetaminophen Crossmatch 03/23/19 03/23/19 03/23/19 05:28 05:31 11:33 WBC 29.7 H RBC 3.59 L Hgb 10.1 L Hct 31.1 L MCV MCHC RDW 15.4 H Plt Count 47 L Lymph % (Auto) [place] % (Auto) Eos % (Auto) Lymph # [place] # Eos # Seg Neutrophils % Seg Neuts % (Manual) 89.0 H Lymphocytes % (Manual) 6.0 L Monocytes % (Manual) Nucleated RBC % 1.0 H Seg Neutrophils # Seg Neutrophils # Man 26.4 H Lymphocytes # (Manual) Monocytes # (Manual) PT INR D-Dimer Heparin Anti-Xa Level POC ABG pH ABG pH POC ABG pCO2 POC ABG pO2 ABG pO2 ABG HCO3 ABG O2 Saturation ABG Base Excess ABG Hemoglobin Oxyhemoglobin Sodium Potassium Chloride Carbon Dioxide BUN Creatinine Glucose POC Glucose 122 H 113 H Lactic Acid Calcium Ionized Calcium Phosphorus Magnesium Iron TIBC Ferritin Total Bilirubin Direct Bilirubin AST ALT Alkaline Phosphatase Total Creatine Kinase CK-MB (CK-2) Troponin T C-Reactive Protein Serum Total Protein Total Protein Albumin Mlidh-0-Vxnuxuxgy Apync-2-Vvejnwhfs PEP Interpretation Triglycerides LDL Cholesterol Direct HDL Cholesterol Free T4 PTH Intact Urine WBC (Auto) Urine Creatinine Salicylates Acetaminophen Crossmatch 03/23/19 03/24/19 03/24/19 17:47 00:00 04:50 WBC 35.0 H RBC Hgb 10.4 L Hct 32.4 L MCV MCHC RDW Plt Count 60 L Lymph % (Auto) [place] % (Auto) Eos % (Auto) Lymph # [place] # Eos # Seg Neutrophils % Seg Neuts % (Manual) 93.0 H Lymphocytes % (Manual) 5.0 L Monocytes % (Manual) Nucleated RBC % 7.0 H Seg Neutrophils # Seg Neutrophils # Man 32.6 H Lymphocytes # (Manual) Monocytes # (Manual) PT INR D-Dimer Heparin Anti-Xa Level POC ABG pH ABG pH POC ABG pCO2 POC ABG pO2 ABG pO2 ABG HCO3 ABG O2 Saturation ABG Base Excess ABG Hemoglobin Oxyhemoglobin Sodium Potassium Chloride Carbon Dioxide BUN Creatinine Glucose POC Glucose 111 H 108 H Lactic Acid Calcium Ionized Calcium Phosphorus Magnesium Iron TIBC Ferritin Total Bilirubin Direct Bilirubin AST ALT Alkaline Phosphatase Total Creatine Kinase CK-MB (CK-2) Troponin T C-Reactive Protein Serum Total Protein Total Protein Albumin Fvodi-4-Ovpkckavg Sbyai-9-Coksmzevf PEP Interpretation Triglycerides LDL Cholesterol Direct HDL Cholesterol Free T4 PTH Intact Urine WBC (Auto) Urine Creatinine Salicylates Acetaminophen Crossmatch 03/24/19 03/24/19 03/24/19 04:50 05:06 12:55 WBC RBC Hgb Hct MCV MCHC RDW Plt Count Lymph % (Auto) [place] % (Auto) Eos % (Auto) Lymph # [place] # Eos # Seg Neutrophils % Seg Neuts % (Manual) Lymphocytes % (Manual) Monocytes % (Manual) Nucleated RBC % Seg Neutrophils # Seg Neutrophils # Man Lymphocytes # (Manual) Monocytes # (Manual) PT INR D-Dimer Heparin Anti-Xa Level POC ABG pH ABG pH POC ABG pCO2 POC ABG pO2 ABG pO2 ABG HCO3 ABG O2 Saturation ABG Base Excess ABG Hemoglobin Oxyhemoglobin Sodium 134 L Potassium 5.1 H Chloride 95.3 L Carbon Dioxide 21 L BUN 85 H Creatinine 6.4 H Glucose 109 H POC Glucose 112 H 110 H Lactic Acid Calcium 5.8 L* Ionized Calcium Phosphorus Magnesium Iron TIBC Ferritin Total Bilirubin Direct Bilirubin AST ALT Alkaline Phosphatase Total Creatine Kinase 5747 H CK-MB (CK-2) Troponin T C-Reactive Protein Serum Total Protein Total Protein Albumin Pfxxa-5-Ybpsrgvzd Ygkli-1-Hhlhwhhjp PEP Interpretation Triglycerides LDL Cholesterol Direct HDL Cholesterol Free T4 PTH Intact Urine WBC (Auto) Urine Creatinine Salicylates Acetaminophen Crossmatch 0903/25/19 03/25/19 23:29 05:00 05:00 WBC RBC Hgb Hct MCV MCHC RDW Plt Count Lymph % (Auto) [place] % (Auto) Eos % (Auto) Lymph # [place] # Eos # Seg Neutrophils % Seg Neuts % (Manual) Lymphocytes % (Manual) Monocytes % (Manual) Nucleated RBC % Seg Neutrophils # Seg Neutrophils # Man Lymphocytes # (Manual) Monocytes # (Manual) PT INR D-Dimer Heparin Anti-Xa Level POC ABG pH ABG pH POC ABG pCO2 POC ABG pO2 ABG pO2 ABG HCO3 ABG O2 Saturation ABG Base Excess ABG Hemoglobin Oxyhemoglobin Sodium 133 L Potassium Chloride 94.0 L Carbon Dioxide 21 L BUN 81 H Creatinine 6.4 H Glucose POC Glucose 109 H Lactic Acid Calcium 5.5 L* Ionized Calcium Phosphorus Magnesium Iron TIBC Ferritin Total Bilirubin Direct Bilirubin AST 80 H ALT Alkaline Phosphatase 202 H Total Creatine Kinase 3589 H CK-MB (CK-2) Troponin T C-Reactive Protein Serum Total Protein Total Protein 5.3 L Albumin 2.4 L Lbisa-6-Cjppymqep Turtd-2-Qgwjloesm PEP Interpretation Triglycerides LDL Cholesterol Direct HDL Cholesterol Free T4 PTH Intact 329.9 H Urine WBC (Auto) Urine Creatinine Salicylates Acetaminophen Crossmatch 03/25/19 03/25/19 03/26/19 05:00 06:30 04:30 WBC 23.3 H RBC 3.61 L Hgb 10.2 L Hct 31.2 L MCV MCHC RDW Plt Count 57 L Lymph % (Auto) [place] % (Auto) Eos % (Auto) Lymph # [place] # Eos # Seg Neutrophils % Seg Neuts % (Manual) 92.0 H Lymphocytes % (Manual) 6.0 L Monocytes % (Manual) Nucleated RBC % Seg Neutrophils # Seg Neutrophils # Man 21.4 H Lymphocytes # (Manual) Monocytes # (Manual) PT INR D-Dimer Heparin Anti-Xa Level POC ABG pH ABG pH 7.326 L POC ABG pCO2 POC ABG pO2 ABG pO2 109.5 H 137.4 H ABG HCO3 18.8 L 18.6 L ABG O2 Saturation ABG Base Excess -4.4 L -6.8 L ABG Hemoglobin 10.1 L 9.9 L Oxyhemoglobin Sodium Potassium Chloride Carbon Dioxide BUN Creatinine Glucose POC Glucose Lactic Acid Calcium Ionized Calcium Phosphorus Magnesium Iron TIBC Ferritin Total Bilirubin Direct Bilirubin AST ALT Alkaline Phosphatase Total Creatine Kinase CK-MB (CK-2) Troponin T C-Reactive Protein Serum Total Protein Total Protein Albumin Iofiv-0-Dtthubfbg Pegxt-3-Refvawnyw PEP Interpretation Triglycerides LDL Cholesterol Direct HDL Cholesterol Free T4 PTH Intact Urine WBC (Auto) Urine Creatinine Salicylates Acetaminophen Crossmatch 03/26/19 03/26/19 03/26/19 23:22 Unknown Unknown WBC 19.5 H RBC 3.44 L Hgb 9.8 L Hct 29.9 L MCV MCHC RDW Plt Count 85 L Lymph % (Auto) [place] % (Auto) Eos % (Auto) Lymph # [place] # Eos # Seg Neutrophils % Seg Neuts % (Manual) 95.0 H Lymphocytes % (Manual) 3.0 L Monocytes % (Manual) Nucleated RBC % Seg Neutrophils # Seg Neutrophils # Man 18.5 H Lymphocytes # (Manual) 0.6 L Monocytes # (Manual) PT INR D-Dimer Heparin Anti-Xa Level POC ABG pH ABG pH POC ABG pCO2 POC ABG pO2 ABG pO2 ABG HCO3 ABG O2 Saturation ABG Base Excess ABG Hemoglobin Oxyhemoglobin Sodium 135 L Potassium 5.2 H D Chloride 92.2 L Carbon Dioxide 18 L BUN 109 H Creatinine 8.5 H Glucose 117 H POC Glucose 69 L Lactic Acid Calcium 4.5 L* D Ionized Calcium Phosphorus Magnesium Iron TIBC Ferritin Total Bilirubin Direct Bilirubin AST ALT Alkaline Phosphatase Total Creatine Kinase 4527 H CK-MB (CK-2) Troponin T C-Reactive Protein Serum Total Protein Total Protein Albumin Exhia-0-Cmjbqyylq Azgqp-6-Rqdecniql PEP Interpretation Triglycerides LDL Cholesterol Direct HDL Cholesterol Free T4 PTH Intact Urine WBC (Auto) Urine Creatinine Salicylates Acetaminophen Crossmatch 03/27/19 03/27/19 03/27/19 04:30 04:30 09:00 WBC 19.2 H RBC 3.42 L Hgb 9.9 L Hct 30.0 L MCV MCHC RDW Plt Count 84 L Lymph % (Auto) [place] % (Auto) Eos % (Auto) Lymph # [place] # Eos # Seg Neutrophils % Seg Neuts % (Manual) Lymphocytes % (Manual) Monocytes % (Manual) Nucleated RBC % Seg Neutrophils # Seg Neutrophils # Man Lymphocytes # (Manual) Monocytes # (Manual) PT INR D-Dimer Heparin Anti-Xa Level POC ABG pH ABG pH POC ABG pCO2 POC ABG pO2 ABG pO2 ABG HCO3 ABG O2 Saturation ABG Base Excess ABG Hemoglobin Oxyhemoglobin Sodium 135 L Potassium Chloride 93.5 L Carbon Dioxide BUN 84 H Creatinine 7.1 H Glucose POC Glucose Lactic Acid Calcium 5.0 L* Ionized Calcium Phosphorus Magnesium Iron TIBC Ferritin Total Bilirubin Direct Bilirubin AST 78 H ALT Alkaline Phosphatase 135 H Total Creatine Kinase 4677 H CK-MB (CK-2) Troponin T C-Reactive Protein Serum Total Protein Total Protein 4.8 L Albumin 2.3 L Zrgxs-8-Fckllnuyj Zplfq-4-Fyxwisnmx PEP Interpretation Triglycerides 409 H LDL Cholesterol Direct HDL Cholesterol Free T4 PTH Intact Urine WBC (Auto) Urine Creatinine Salicylates Acetaminophen Crossmatch 03/27/19 03/27/19 03/27/19 12:37 14:15 14:15 WBC RBC Hgb 9.7 L Hct 29.5 L MCV MCHC RDW Plt Count 87 L Lymph % (Auto) [place] % (Auto) Eos % (Auto) Lymph # [place] # Eos # Seg Neutrophils % Seg Neuts % (Manual) Lymphocytes % (Manual) Monocytes % (Manual) Nucleated RBC % Seg Neutrophils # Seg Neutrophils # Man Lymphocytes # (Manual) Monocytes # (Manual) PT 15.9 H INR 1.30 H D-Dimer Heparin Anti-Xa Level POC ABG pH ABG pH POC ABG pCO2 POC ABG pO2 ABG pO2 ABG HCO3 ABG O2 Saturation ABG Base Excess ABG Hemoglobin Oxyhemoglobin Sodium Potassium Chloride Carbon Dioxide BUN Creatinine Glucose POC Glucose 129 H Lactic Acid Calcium Ionized Calcium Phosphorus Magnesium Iron TIBC Ferritin Total Bilirubin Direct Bilirubin AST ALT Alkaline Phosphatase Total Creatine Kinase CK-MB (CK-2) Troponin T C-Reactive Protein Serum Total Protein Total Protein Albumin Nwrpb-2-Pagmxfzta Zbmcx-8-Qkiiruhvf PEP Interpretation Triglycerides LDL Cholesterol Direct HDL Cholesterol Free T4 PTH Intact Urine WBC (Auto) Urine Creatinine Salicylates Acetaminophen Crossmatch 03/27/19 03/27/19 03/27/19 18:00 19:22 19:23 WBC RBC Hgb Hct MCV MCHC RDW Plt Count Lymph % (Auto) [place] % (Auto) Eos % (Auto) Lymph # [place] # Eos # Seg Neutrophils % Seg Neuts % (Manual) Lymphocytes % (Manual) Monocytes % (Manual) Nucleated RBC % Seg Neutrophils # Seg Neutrophils # Man Lymphocytes # (Manual) Monocytes # (Manual) PT INR D-Dimer Heparin Anti-Xa Level < 0.10 L POC ABG pH ABG pH POC ABG pCO2 POC ABG pO2 ABG pO2 ABG HCO3 ABG O2 Saturation ABG Base Excess ABG Hemoglobin Oxyhemoglobin Sodium Potassium Chloride Carbon Dioxide BUN Creatinine Glucose POC Glucose 121 H Lactic Acid Calcium Ionized Calcium Phosphorus Magnesium Iron TIBC Ferritin Total Bilirubin Direct Bilirubin AST ALT Alkaline Phosphatase Total Creatine Kinase 4517 H CK-MB (CK-2) Troponin T C-Reactive Protein Serum Total Protein Total Protein Albumin Uzdpg-7-Zwdcrsevi Zqcqk-5-Vuoljgdfo PEP Interpretation Triglycerides LDL Cholesterol Direct HDL Cholesterol Free T4 PTH Intact Urine WBC (Auto) Urine Creatinine Salicylates Acetaminophen Crossmatch 03/27/19 03/27/19 03/28/19 22:10 23:52 03:49 WBC RBC Hgb Hct MCV MCHC RDW Plt Count Lymph % (Auto) [place] % (Auto) Eos % (Auto) Lymph # [place] # Eos # Seg Neutrophils % Seg Neuts % (Manual) Lymphocytes % (Manual) Monocytes % (Manual) Nucleated RBC % Seg Neutrophils # Seg Neutrophils # Man Lymphocytes # (Manual) Monocytes # (Manual) PT INR D-Dimer Heparin Anti-Xa Level POC ABG pH 7.338 L ABG pH POC ABG pCO2 33.1 L POC ABG pO2 ABG pO2 ABG HCO3 ABG O2 Saturation ABG Base Excess ABG Hemoglobin Oxyhemoglobin Sodium Potassium Chloride Carbon Dioxide BUN Creatinine Glucose POC Glucose 113 H 117 H Lactic Acid Calcium Ionized Calcium Phosphorus Magnesium Iron TIBC Ferritin Total Bilirubin Direct Bilirubin AST ALT Alkaline Phosphatase Total Creatine Kinase CK-MB (CK-2) Troponin T C-Reactive Protein Serum Total Protein Total Protein Albumin Oltuy-1-Qjphrcjjj Mdikb-7-Tzdeargdn PEP Interpretation Triglycerides LDL Cholesterol Direct HDL Cholesterol Free T4 PTH Intact Urine WBC (Auto) Urine Creatinine Salicylates Acetaminophen Crossmatch 03/28/19 03/28/19 03/28/19 05:13 05:13 06:18 WBC RBC Hgb Hct MCV MCHC RDW Plt Count Lymph % (Auto) [place] % (Auto) Eos % (Auto) Lymph # [place] # Eos # Seg Neutrophils % Seg Neuts % (Manual) Lymphocytes % (Manual) Monocytes % (Manual) Nucleated RBC % Seg Neutrophils # Seg Neutrophils # Man Lymphocytes # (Manual) Monocytes # (Manual) PT INR D-Dimer Heparin Anti-Xa Level 0.23 L POC ABG pH ABG pH POC ABG pCO2 POC ABG pO2 ABG pO2 ABG HCO3 ABG O2 Saturation ABG Base Excess ABG Hemoglobin Oxyhemoglobin Sodium 135 L Potassium 5.5 H D Chloride 95.1 L Carbon Dioxide 16 L D BUN 129 H Creatinine 9.3 H Glucose 158 H POC Glucose 202 H Lactic Acid Calcium 4.0 L* D Ionized Calcium Phosphorus 12.40 H Magnesium Iron TIBC Ferritin Total Bilirubin Direct Bilirubin AST ALT Alkaline Phosphatase Total Creatine Kinase 4266 H CK-MB (CK-2) Troponin T C-Reactive Protein Serum Total Protein Total Protein Albumin Jaoxk-9-Mqntvmskf Sgasg-3-Jduzqvmuq PEP Interpretation Triglycerides LDL Cholesterol Direct HDL Cholesterol Free T4 PTH Intact Urine WBC (Auto) Urine Creatinine Salicylates Acetaminophen Crossmatch 03/28/19 03/28/19 03/28/19 08:25 10:00 12:00 WBC RBC Hgb 4.9 L* D Hct 15.4 L* D MCV MCHC RDW Plt Count Lymph % (Auto) [place] % (Auto) Eos % (Auto) Lymph # [place] # Eos # Seg Neutrophils % Seg Neuts % (Manual) Lymphocytes % (Manual) Monocytes % (Manual) Nucleated RBC % Seg Neutrophils # Seg Neutrophils # Man Lymphocytes # (Manual) Monocytes # (Manual) PT 17.9 H INR 1.52 H D-Dimer 4845.98 H Heparin Anti-Xa Level POC ABG pH ABG pH POC ABG pCO2 POC ABG pO2 ABG pO2 ABG HCO3 ABG O2 Saturation ABG Base Excess ABG Hemoglobin Oxyhemoglobin Sodium Potassium Chloride Carbon Dioxide BUN Creatinine Glucose POC Glucose Lactic Acid Calcium Ionized Calcium Phosphorus Magnesium Iron TIBC Ferritin Total Bilirubin Direct Bilirubin AST ALT Alkaline Phosphatase Total Creatine Kinase CK-MB (CK-2) Troponin T C-Reactive Protein Serum Total Protein Total Protein Albumin Depsp-9-Lipiwzoer Pfvbh-8-Uyfftogbe PEP Interpretation Triglycerides LDL Cholesterol Direct HDL Cholesterol Free T4 PTH Intact Urine WBC (Auto) Urine Creatinine Salicylates Acetaminophen Crossmatch See Detail 03/28/19 03/28/19 03/28/19 12:28 14:10 17:43 WBC RBC Hgb 5.9 L* Hct 18.3 L* MCV MCHC RDW Plt Count Lymph % (Auto) [place] % (Auto) Eos % (Auto) Lymph # [place] # Eos # Seg Neutrophils % Seg Neuts % (Manual) Lymphocytes % (Manual) Monocytes % (Manual) Nucleated RBC % Seg Neutrophils # Seg Neutrophils # Man Lymphocytes # (Manual) Monocytes # (Manual) PT INR D-Dimer Heparin Anti-Xa Level POC ABG pH ABG pH POC ABG pCO2 POC ABG pO2 ABG pO2 ABG HCO3 ABG O2 Saturation ABG Base Excess ABG Hemoglobin Oxyhemoglobin Sodium Potassium Chloride Carbon Dioxide BUN Creatinine Glucose POC Glucose 153 H 159 H Lactic Acid Calcium Ionized Calcium Phosphorus Magnesium Iron TIBC Ferritin Total Bilirubin Direct Bilirubin AST ALT Alkaline Phosphatase Total Creatine Kinase CK-MB (CK-2) Troponin T C-Reactive Protein Serum Total Protein Total Protein Albumin Ggrbq-5-Uoqbbrfej Vcwyr-7-Yzvyparec PEP Interpretation Triglycerides LDL Cholesterol Direct HDL Cholesterol Free T4 PTH Intact Urine WBC (Auto) Urine Creatinine Salicylates Acetaminophen Crossmatch 03/28/19 03/28/19 03/28/19 18:10 Unknown 23:59 WBC 24.8 H RBC 3.42 L Hgb 10.2 L D Hct 31.1 L D MCV MCHC RDW 15.4 H Plt Count 54 L Lymph % (Auto) [place] % (Auto) Eos % (Auto) Lymph # [place] # Eos # Seg Neutrophils % Seg Neuts % (Manual) 91.0 H Lymphocytes % (Manual) 8.0 L Monocytes % (Manual) Nucleated RBC % Seg Neutrophils # Seg Neutrophils # Man 22.6 H Lymphocytes # (Manual) Monocytes # (Manual) PT INR D-Dimer Heparin Anti-Xa Level POC ABG pH ABG pH POC ABG pCO2 POC ABG pO2 ABG pO2 ABG HCO3 ABG O2 Saturation ABG Base Excess ABG Hemoglobin Oxyhemoglobin Sodium Potassium 5.7 H Chloride Carbon Dioxide BUN Creatinine Glucose POC Glucose 107 H Lactic Acid Calcium Ionized Calcium Phosphorus Magnesium Iron TIBC Ferritin Total Bilirubin Direct Bilirubin AST ALT Alkaline Phosphatase Total Creatine Kinase CK-MB (CK-2) Troponin T C-Reactive Protein Serum Total Protein Total Protein Albumin Iewui-0-Ctbqjzwfy Zkdhj-0-Luptbcpdl PEP Interpretation Triglycerides LDL Cholesterol Direct HDL Cholesterol Free T4 PTH Intact Urine WBC (Auto) Urine Creatinine Salicylates Acetaminophen Crossmatch 03/29/19 03/29/19 03/29/19 04:29 05:46 06:22 WBC RBC Hgb 8.6 L Hct 25.7 L MCV MCHC RDW Plt Count 93 L Lymph % (Auto) [place] % (Auto) Eos % (Auto) Lymph # [place] # Eos # Seg Neutrophils % Seg Neuts % (Manual) Lymphocytes % (Manual) Monocytes % (Manual) Nucleated RBC % Seg Neutrophils # Seg Neutrophils # Man Lymphocytes # (Manual) Monocytes # (Manual) PT INR D-Dimer Heparin Anti-Xa Level POC ABG pH ABG pH POC ABG pCO2 32.2 L POC ABG pO2 ABG pO2 ABG HCO3 ABG O2 Saturation ABG Base Excess ABG Hemoglobin Oxyhemoglobin Sodium Potassium Chloride Carbon Dioxide BUN Creatinine Glucose POC Glucose 113 H Lactic Acid Calcium Ionized Calcium Phosphorus Magnesium Iron TIBC Ferritin Total Bilirubin Direct Bilirubin AST ALT Alkaline Phosphatase Total Creatine Kinase CK-MB (CK-2) Troponin T C-Reactive Protein Serum Total Protein Total Protein Albumin Dndgi-3-Keshlfodm Ludgk-5-Codbtbqqy PEP Interpretation Triglycerides LDL Cholesterol Direct HDL Cholesterol Free T4 PTH Intact Urine WBC (Auto) Urine Creatinine Salicylates Acetaminophen Crossmatch 03/29/19 03/29/19 03/29/19 06:22 06:22 06:22 WBC 23.2 H RBC 2.91 L Hgb 8.6 L Hct 25.8 L MCV MCHC RDW Plt Count 91 L Lymph % (Auto) [place] % (Auto) Eos % (Auto) Lymph # [place] # Eos # Seg Neutrophils % Seg Neuts % (Manual) Lymphocytes % (Manual) Monocytes % (Manual) Nucleated RBC % Seg Neutrophils # Seg Neutrophils # Man Lymphocytes # (Manual) Monocytes # (Manual) PT INR D-Dimer Heparin Anti-Xa Level POC ABG pH ABG pH POC ABG pCO2 POC ABG pO2 ABG pO2 ABG HCO3 ABG O2 Saturation ABG Base Excess ABG Hemoglobin Oxyhemoglobin Sodium 133 L Potassium Chloride 93.8 L Carbon Dioxide 18 L BUN 109 H Creatinine 7.4 H Glucose 124 H POC Glucose Lactic Acid Calcium 4.6 L* Ionized Calcium Phosphorus Magnesium Iron TIBC Ferritin Total Bilirubin Direct Bilirubin AST ALT Alkaline Phosphatase Total Creatine Kinase 3401 H CK-MB (CK-2) Troponin T C-Reactive Protein Serum Total Protein Total Protein Albumin Gdeyn-0-Cclorgjew Cngmo-8-Wcbcesaci PEP Interpretation Triglycerides 309 H LDL Cholesterol Direct HDL Cholesterol Free T4 PTH Intact Urine WBC (Auto) Urine Creatinine Salicylates Acetaminophen Crossmatch 03/29/19 03/29/19 03/29/19 11:48 11:48 18:24 WBC RBC Hgb 7.8 L Hct 23.2 L MCV MCHC RDW Plt Count Lymph % (Auto) [place] % (Auto) Eos % (Auto) Lymph # [place] # Eos # Seg Neutrophils % Seg Neuts % (Manual) Lymphocytes % (Manual) Monocytes % (Manual) Nucleated RBC % Seg Neutrophils # Seg Neutrophils # Man Lymphocytes # (Manual) Monocytes # (Manual) PT 15.3 H INR 1.24 H D-Dimer Heparin Anti-Xa Level POC ABG pH ABG pH POC ABG pCO2 POC ABG pO2 ABG pO2 ABG HCO3 ABG O2 Saturation ABG Base Excess ABG Hemoglobin Oxyhemoglobin Sodium Potassium Chloride Carbon Dioxide BUN Creatinine Glucose POC Glucose 122 H Lactic Acid Calcium Ionized Calcium Phosphorus Magnesium Iron TIBC Ferritin Total Bilirubin Direct Bilirubin AST ALT Alkaline Phosphatase Total Creatine Kinase CK-MB (CK-2) Troponin T C-Reactive Protein Serum Total Protein Total Protein Albumin Svjox-9-Wevxbxkoy Spwht-4-Nnzwjfkbf PEP Interpretation Triglycerides LDL Cholesterol Direct HDL Cholesterol Free T4 PTH Intact Urine WBC (Auto) Urine Creatinine Salicylates Acetaminophen Crossmatch 03/30/19 03/30/19 03/30/19 00:40 04:31 05:04 WBC RBC Hgb 7.6 L Hct 23.0 L MCV MCHC RDW Plt Count Lymph % (Auto) [place] % (Auto) Eos % (Auto) Lymph # [place] # Eos # Seg Neutrophils % Seg Neuts % (Manual) Lymphocytes % (Manual) Monocytes % (Manual) Nucleated RBC % Seg Neutrophils # Seg Neutrophils # Man Lymphocytes # (Manual) Monocytes # (Manual) PT INR D-Dimer Heparin Anti-Xa Level POC ABG pH 7.346 L ABG pH POC ABG pCO2 POC ABG pO2 62 L ABG pO2 ABG HCO3 ABG O2 Saturation ABG Base Excess ABG Hemoglobin Oxyhemoglobin Sodium Potassium Chloride Carbon Dioxide BUN 79 H Creatinine 6.4 H Glucose POC Glucose Lactic Acid Calcium 6.1 L D Ionized Calcium Phosphorus Magnesium Iron TIBC Ferritin Total Bilirubin Direct Bilirubin AST ALT Alkaline Phosphatase Total Creatine Kinase CK-MB (CK-2) Troponin T C-Reactive Protein Serum Total Protein Total Protein Albumin Knpmd-1-Twkpyksyn Krjbw-4-Yusxacofs PEP Interpretation Triglycerides LDL Cholesterol Direct HDL Cholesterol Free T4 PTH Intact Urine WBC (Auto) Urine Creatinine Salicylates Acetaminophen Crossmatch 03/30/19 03/30/19 03/30/19 08:45 12:09 22:43 WBC 14.3 H RBC 2.33 L Hgb 7.0 L 7.4 L Hct 21.0 L 22.3 L MCV MCHC RDW 15.6 H Plt Count 135 L Lymph % (Auto) [place] % (Auto) Eos % (Auto) Lymph # [place] # Eos # Seg Neutrophils % Seg Neuts % (Manual) Lymphocytes % (Manual) Monocytes % (Manual) Nucleated RBC % Seg Neutrophils # Seg Neutrophils # Man Lymphocytes # (Manual) Monocytes # (Manual) PT INR D-Dimer Heparin Anti-Xa Level POC ABG pH ABG pH POC ABG pCO2 POC ABG pO2 ABG pO2 ABG HCO3 ABG O2 Saturation ABG Base Excess ABG Hemoglobin Oxyhemoglobin Sodium Potassium Chloride Carbon Dioxide BUN Creatinine Glucose POC Glucose Lactic Acid Calcium Ionized Calcium 3.7 L Phosphorus Magnesium Iron TIBC Ferritin Total Bilirubin Direct Bilirubin AST ALT Alkaline Phosphatase Total Creatine Kinase CK-MB (CK-2) Troponin T C-Reactive Protein Serum Total Protein Total Protein Albumin Fvwze-1-Dyfdudqqj Sojgv-1-Xlonmznrp PEP Interpretation Triglycerides LDL Cholesterol Direct HDL Cholesterol Free T4 PTH Intact Urine WBC (Auto) Urine Creatinine Salicylates Acetaminophen Crossmatch 03/30/19 03/30/19 03/31/19 23:38 Unknown 04:44 WBC 11.5 H RBC 2.40 L Hgb 7.3 L Hct 21.9 L MCV MCHC RDW 15.4 H Plt Count Lymph % (Auto) 10.6 L [place] % (Auto) Eos % (Auto) Lymph # [place] # Eos # Seg Neutrophils % 81.7 H Seg Neuts % (Manual) Lymphocytes % (Manual) Monocytes % (Manual) Nucleated RBC % Seg Neutrophils # 9.4 H Seg Neutrophils # Man Lymphocytes # (Manual) Monocytes # (Manual) PT INR D-Dimer Heparin Anti-Xa Level POC ABG pH ABG pH POC ABG pCO2 POC ABG pO2 ABG pO2 ABG HCO3 ABG O2 Saturation ABG Base Excess ABG Hemoglobin Oxyhemoglobin Sodium Potassium Chloride Carbon Dioxide BUN Creatinine Glucose POC Glucose 155 H Lactic Acid Calcium Ionized Calcium Phosphorus Magnesium Iron TIBC Ferritin Total Bilirubin Direct Bilirubin 0.4 H AST 63 H ALT Alkaline Phosphatase Total Creatine Kinase CK-MB (CK-2) Troponin T C-Reactive Protein Serum Total Protein Total Protein 4.9 L Albumin 2.2 L Jbxqi-4-Djsrijede Npjuj-8-Dmvmgztcu PEP Interpretation Triglycerides LDL Cholesterol Direct HDL Cholesterol Free T4 PTH Intact Urine WBC (Auto) Urine Creatinine Salicylates Acetaminophen Crossmatch 03/31/19 03/31/19 03/31/19 04:44 05:44 08:20 WBC RBC Hgb Hct MCV MCHC RDW Plt Count Lymph % (Auto) [place] % (Auto) Eos % (Auto) Lymph # [place] # Eos # Seg Neutrophils % Seg Neuts % (Manual) Lymphocytes % (Manual) Monocytes % (Manual) Nucleated RBC % Seg Neutrophils # Seg Neutrophils # Man Lymphocytes # (Manual) Monocytes # (Manual) PT INR D-Dimer Heparin Anti-Xa Level POC ABG pH ABG pH POC ABG pCO2 53.5 H POC ABG pO2 62 L ABG pO2 ABG HCO3 ABG O2 Saturation ABG Base Excess ABG Hemoglobin Oxyhemoglobin Sodium 135 L Potassium Chloride 96.7 L Carbon Dioxide 19 L BUN 94 H Creatinine 7.8 H Glucose POC Glucose Lactic Acid Calcium 5.3 L* Ionized Calcium Phosphorus 8.20 H Magnesium Iron TIBC Ferritin Total Bilirubin Direct Bilirubin 0.4 H AST 60 H ALT Alkaline Phosphatase Total Creatine Kinase CK-MB (CK-2) Troponin T C-Reactive Protein Serum Total Protein Total Protein 4.8 L Albumin 2.1 L Aojvm-6-Fcgoqpnhh Eycbz-3-Onwssjqhj PEP Interpretation Triglycerides LDL Cholesterol Direct HDL Cholesterol Free T4 PTH Intact Urine WBC (Auto) Urine Creatinine Salicylates Acetaminophen Crossmatch 03/31/19 04/01/19 04/01/19 22:14 04:27 04:27 WBC RBC 2.60 L Hgb 8.0 L Hct 24.1 L MCV MCHC RDW 15.7 H Plt Count Lymph % (Auto) 7.9 L [place] % (Auto) Eos % (Auto) Lymph # 0.7 L [place] # Eos # Seg Neutrophils % 83.6 H Seg Neuts % (Manual) Lymphocytes % (Manual) Monocytes % (Manual) Nucleated RBC % Seg Neutrophils # Seg Neutrophils # Man Lymphocytes # (Manual) Monocytes # (Manual) PT INR D-Dimer Heparin Anti-Xa Level POC ABG pH 7.286 L ABG pH POC ABG pCO2 54.7 H POC ABG pO2 179 H ABG pO2 ABG HCO3 ABG O2 Saturation ABG Base Excess ABG Hemoglobin Oxyhemoglobin Sodium Potassium Chloride Carbon Dioxide BUN 68 H Creatinine 6.6 H Glucose POC Glucose Lactic Acid Calcium 6.5 L D Ionized Calcium Phosphorus 7.30 H Magnesium Iron TIBC Ferritin Total Bilirubin Direct Bilirubin AST ALT Alkaline Phosphatase Total Creatine Kinase 1652 H CK-MB (CK-2) Troponin T C-Reactive Protein Serum Total Protein Total Protein Albumin Afwpk-0-Njwqqowjz Lhzoa-5-Cfesgrqij PEP Interpretation Triglycerides LDL Cholesterol Direct HDL Cholesterol Free T4 PTH Intact Urine WBC (Auto) Urine Creatinine Salicylates Acetaminophen Crossmatch 04/01/19 04/01/19 04/01/19 05:14 05:37 18:37 WBC RBC Hgb Hct MCV MCHC RDW Plt Count Lymph % (Auto) [place] % (Auto) Eos % (Auto) Lymph # [place] # Eos # Seg Neutrophils % Seg Neuts % (Manual) Lymphocytes % (Manual) Monocytes % (Manual) Nucleated RBC % Seg Neutrophils # Seg Neutrophils # Man Lymphocytes # (Manual) Monocytes # (Manual) PT INR D-Dimer Heparin Anti-Xa Level POC ABG pH 7.283 L ABG pH POC ABG pCO2 53.4 H POC ABG pO2 241 H ABG pO2 ABG HCO3 ABG O2 Saturation ABG Base Excess ABG Hemoglobin Oxyhemoglobin Sodium Potassium Chloride Carbon Dioxide BUN Creatinine Glucose POC Glucose 111 H 119 H Lactic Acid Calcium Ionized Calcium Phosphorus Magnesium Iron TIBC Ferritin Total Bilirubin Direct Bilirubin AST ALT Alkaline Phosphatase Total Creatine Kinase CK-MB (CK-2) Troponin T C-Reactive Protein Serum Total Protein Total Protein Albumin Fxtcc-3-Bnyybmevt Gctoq-4-Lxsdgxcys PEP Interpretation Triglycerides LDL Cholesterol Direct HDL Cholesterol Free T4 PTH Intact Urine WBC (Auto) Urine Creatinine Salicylates Acetaminophen Crossmatch 04/01/19 04/02/19 04/02/19 21:28 04:40 05:03 WBC RBC 2.36 L Hgb 7.2 L Hct 21.9 L MCV MCHC RDW 16.0 H Plt Count Lymph % (Auto) 10.8 L [place] % (Auto) Eos % (Auto) Lymph # 0.8 L [place] # Eos # Seg Neutrophils % 80.3 H Seg Neuts % (Manual) Lymphocytes % (Manual) Monocytes % (Manual) Nucleated RBC % Seg Neutrophils # Seg Neutrophils # Man Lymphocytes # (Manual) Monocytes # (Manual) PT INR D-Dimer Heparin Anti-Xa Level POC ABG pH 7.299 L 7.300 L ABG pH POC ABG pCO2 48.2 H 45.2 H POC ABG pO2 133 H 107 H ABG pO2 ABG HCO3 ABG O2 Saturation ABG Base Excess ABG Hemoglobin Oxyhemoglobin Sodium Potassium Chloride Carbon Dioxide BUN Creatinine Glucose POC Glucose Lactic Acid Calcium Ionized Calcium Phosphorus Magnesium Iron TIBC Ferritin Total Bilirubin Direct Bilirubin AST ALT Alkaline Phosphatase Total Creatine Kinase CK-MB (CK-2) Troponin T C-Reactive Protein Serum Total Protein Total Protein Albumin Zlaaa-9-Xlwqfldmi Zstog-2-Ttlzrhaio PEP Interpretation Triglycerides LDL Cholesterol Direct HDL Cholesterol Free T4 PTH Intact Urine WBC (Auto) Urine Creatinine Salicylates Acetaminophen Crossmatch 04/02/19 04/02/19 04/02/19 05:03 05:03 12:15 WBC RBC Hgb 7.4 L Hct 22.6 L MCV MCHC RDW Plt Count Lymph % (Auto) [place] % (Auto) Eos % (Auto) Lymph # [place] # Eos # Seg Neutrophils % Seg Neuts % (Manual) Lymphocytes % (Manual) Monocytes % (Manual) Nucleated RBC % Seg Neutrophils # Seg Neutrophils # Man Lymphocytes # (Manual) Monocytes # (Manual) PT INR D-Dimer Heparin Anti-Xa Level POC ABG pH ABG pH POC ABG pCO2 POC ABG pO2 ABG pO2 ABG HCO3 ABG O2 Saturation ABG Base Excess ABG Hemoglobin Oxyhemoglobin Sodium 136 L Potassium Chloride 97.8 L Carbon Dioxide 18 L BUN 82 H Creatinine 8.2 H Glucose POC Glucose Lactic Acid Calcium 6.7 L Ionized Calcium Phosphorus 7.50 H Magnesium Iron 26 L TIBC 138 L Ferritin 607.0 H Total Bilirubin Direct Bilirubin AST ALT Alkaline Phosphatase Total Creatine Kinase CK-MB (CK-2) Troponin T C-Reactive Protein Serum Total Protein Total Protein Albumin Lxhzd-3-Cpzyownas Vbjiy-2-Xggphhxxx PEP Interpretation Triglycerides LDL Cholesterol Direct HDL Cholesterol Free T4 PTH Intact Urine WBC (Auto) Urine Creatinine Salicylates Acetaminophen Crossmatch 04/02/19 04/02/19 04/03/19 16:34 17:14 04:18 WBC RBC Hgb Hct MCV MCHC RDW Plt Count Lymph % (Auto) [place] % (Auto) Eos % (Auto) Lymph # [place] # Eos # Seg Neutrophils % Seg Neuts % (Manual) Lymphocytes % (Manual) Monocytes % (Manual) Nucleated RBC % Seg Neutrophils # Seg Neutrophils # Man Lymphocytes # (Manual) Monocytes # (Manual) PT INR D-Dimer Heparin Anti-Xa Level POC ABG pH ABG pH POC ABG pCO2 POC ABG pO2 146 H ABG pO2 ABG HCO3 ABG O2 Saturation ABG Base Excess ABG Hemoglobin Oxyhemoglobin Sodium Potassium Chloride Carbon Dioxide BUN Creatinine Glucose POC Glucose 108 H Lactic Acid Calcium Ionized Calcium Phosphorus Magnesium Iron TIBC Ferritin Total Bilirubin Direct Bilirubin AST ALT Alkaline Phosphatase Total Creatine Kinase CK-MB (CK-2) Troponin T C-Reactive Protein Serum Total Protein Total Protein Albumin Sytab-8-Yblgpbnjt Watic-5-Qiptlqjti PEP Interpretation Triglycerides LDL Cholesterol Direct HDL Cholesterol Free T4 PTH Intact Urine WBC (Auto) Urine Creatinine Salicylates Acetaminophen Crossmatch See Detail 04/03/19 04/03/19 04/03/19 04:25 08:30 18:24 WBC RBC 2.40 L Hgb 7.3 L Hct 21.9 L MCV MCHC RDW Plt Count Lymph % (Auto) [place] % (Auto) 7.7 H Eos % (Auto) Lymph # 0.9 L [place] # Eos # Seg Neutrophils % 74.6 H Seg Neuts % (Manual) Lymphocytes % (Manual) Monocytes % (Manual) Nucleated RBC % Seg Neutrophils # Seg Neutrophils # Man Lymphocytes # (Manual) Monocytes # (Manual) PT INR D-Dimer Heparin Anti-Xa Level POC ABG pH ABG pH POC ABG pCO2 POC ABG pO2 ABG pO2 ABG HCO3 ABG O2 Saturation ABG Base Excess ABG Hemoglobin Oxyhemoglobin Sodium 136 L Potassium Chloride 97.0 L Carbon Dioxide BUN 58 H Creatinine 7.3 H Glucose POC Glucose 106 H Lactic Acid Calcium 7.5 L Ionized Calcium Phosphorus 5.80 H D Magnesium Iron TIBC Ferritin Total Bilirubin Direct Bilirubin AST ALT Alkaline Phosphatase Total Creatine Kinase CK-MB (CK-2) Troponin T C-Reactive Protein Serum Total Protein Total Protein Albumin Bocvd-3-Qnzavdegz Awxon-2-Xoosucmwt PEP Interpretation Triglycerides LDL Cholesterol Direct HDL Cholesterol Free T4 PTH Intact Urine WBC (Auto) Urine Creatinine Salicylates Acetaminophen Crossmatch 04/03/19 04/04/19 04/04/19 23:43 04:47 04:47 WBC RBC 2.72 L Hgb 8.3 L Hct 24.7 L MCV MCHC RDW 15.6 H Plt Count Lymph % (Auto) [place] % (Auto) 10.1 H Eos % (Auto) Lymph # 0.8 L [place] # Eos # Seg Neutrophils % 71.4 H Seg Neuts % (Manual) Lymphocytes % (Manual) Monocytes % (Manual) Nucleated RBC % Seg Neutrophils # Seg Neutrophils # Man Lymphocytes # (Manual) Monocytes # (Manual) PT INR D-Dimer Heparin Anti-Xa Level POC ABG pH ABG pH POC ABG pCO2 POC ABG pO2 ABG pO2 123.8 H ABG HCO3 ABG O2 Saturation ABG Base Excess -3.0 L ABG Hemoglobin 7.9 L Oxyhemoglobin Sodium 134 L Potassium Chloride 97.9 L Carbon Dioxide BUN 64 H Creatinine 8.1 H Glucose POC Glucose Lactic Acid Calcium 7.2 L Ionized Calcium Phosphorus Magnesium Iron TIBC Ferritin Total Bilirubin Direct Bilirubin AST ALT Alkaline Phosphatase Total Creatine Kinase CK-MB (CK-2) Troponin T C-Reactive Protein Serum Total Protein Total Protein Albumin Wfpjr-5-Wvtvdtvnb Xizuh-8-Ueyiuftin PEP Interpretation Triglycerides LDL Cholesterol Direct HDL Cholesterol Free T4 PTH Intact Urine WBC (Auto) Urine Creatinine Salicylates Acetaminophen Crossmatch 04/04/19 04/04/19 04/04/19 06:07 13:40 18:18 WBC RBC Hgb Hct MCV MCHC RDW Plt Count Lymph % (Auto) [place] % (Auto) Eos % (Auto) Lymph # [place] # Eos # Seg Neutrophils % Seg Neuts % (Manual) Lymphocytes % (Manual) Monocytes % (Manual) Nucleated RBC % Seg Neutrophils # Seg Neutrophils # Man Lymphocytes # (Manual) Monocytes # (Manual) PT INR D-Dimer Heparin Anti-Xa Level POC ABG pH ABG pH POC ABG pCO2 POC ABG pO2 ABG pO2 95.9 H ABG HCO3 ABG O2 Saturation ABG Base Excess -3.0 L ABG Hemoglobin 8.5 L Oxyhemoglobin Sodium Potassium Chloride Carbon Dioxide BUN Creatinine Glucose POC Glucose 107 H 107 H Lactic Acid Calcium Ionized Calcium Phosphorus Magnesium Iron TIBC Ferritin Total Bilirubin Direct Bilirubin AST ALT Alkaline Phosphatase Total Creatine Kinase CK-MB (CK-2) Troponin T C-Reactive Protein Serum Total Protein Total Protein Albumin Baynj-9-Ylybmkfmh Balit-8-Oasasiknl PEP Interpretation Triglycerides LDL Cholesterol Direct HDL Cholesterol Free T4 PTH Intact Urine WBC (Auto) Urine Creatinine Salicylates Acetaminophen Crossmatch 04/04/19 04/05/19 04/05/19 21:22 04:09 04:09 WBC RBC 2.76 L Hgb 8.4 L Hct 25.4 L MCV MCHC RDW 15.8 H Plt Count 133 L Lymph % (Auto) [place] % (Auto) 9.6 H Eos % (Auto) Lymph # 0.7 L [place] # Eos # Seg Neutrophils % 72.6 H Seg Neuts % (Manual) Lymphocytes % (Manual) Monocytes % (Manual) Nucleated RBC % Seg Neutrophils # Seg Neutrophils # Man Lymphocytes # (Manual) Monocytes # (Manual) PT INR D-Dimer Heparin Anti-Xa Level POC ABG pH ABG pH POC ABG pCO2 47.2 H POC ABG pO2 137 H ABG pO2 ABG HCO3 ABG O2 Saturation ABG Base Excess ABG Hemoglobin Oxyhemoglobin Sodium 136 L Potassium Chloride Carbon Dioxide BUN 46 H Creatinine 6.7 H Glucose POC Glucose Lactic Acid Calcium 7.7 L Ionized Calcium Phosphorus Magnesium Iron TIBC Ferritin Total Bilirubin Direct Bilirubin AST ALT Alkaline Phosphatase Total Creatine Kinase CK-MB (CK-2) Troponin T C-Reactive Protein Serum Total Protein Total Protein Albumin Kqtly-2-Srgjjeshr Hncis-2-Ruqcrbnpi PEP Interpretation Triglycerides LDL Cholesterol Direct HDL Cholesterol Free T4 PTH Intact Urine WBC (Auto) Urine Creatinine Salicylates Acetaminophen Crossmatch 04/05/19 04/05/19 04/05/19 05:28 06:14 16:50 WBC RBC Hgb Hct MCV MCHC RDW Plt Count Lymph % (Auto) [place] % (Auto) Eos % (Auto) Lymph # [place] # Eos # Seg Neutrophils % Seg Neuts % (Manual) Lymphocytes % (Manual) Monocytes % (Manual) Nucleated RBC % Seg Neutrophils # Seg Neutrophils # Man Lymphocytes # (Manual) Monocytes # (Manual) PT INR D-Dimer Heparin Anti-Xa Level POC ABG pH ABG pH POC ABG pCO2 POC ABG pO2 67 L ABG pO2 ABG HCO3 ABG O2 Saturation ABG Base Excess ABG Hemoglobin Oxyhemoglobin Sodium Potassium Chloride Carbon Dioxide BUN Creatinine Glucose POC Glucose 108 H Lactic Acid Calcium Ionized Calcium Phosphorus Magnesium Iron TIBC Ferritin Total Bilirubin Direct Bilirubin AST ALT Alkaline Phosphatase Total Creatine Kinase CK-MB (CK-2) Troponin T C-Reactive Protein Serum Total Protein Total Protein Albumin Dpalr-5-Wzdwzrgak Myezv-2-Luvomhanx PEP Interpretation Triglycerides LDL Cholesterol Direct HDL Cholesterol Free T4 PTH Intact Urine WBC (Auto) 40.0 H Urine Creatinine Salicylates Acetaminophen Crossmatch 04/05/19 04/06/19 04/06/19 17:22 00:13 04:44 WBC RBC 2.48 L Hgb 7.5 L Hct 22.9 L MCV MCHC RDW 16.0 H Plt Count 107 L Lymph % (Auto) [place] % (Auto) 10.7 H Eos % (Auto) Lymph # 1.0 L [place] # Eos # Seg Neutrophils % Seg Neuts % (Manual) Lymphocytes % (Manual) Monocytes % (Manual) Nucleated RBC % Seg Neutrophils # Seg Neutrophils # Man Lymphocytes # (Manual) Monocytes # (Manual) PT INR D-Dimer Heparin Anti-Xa Level POC ABG pH ABG pH POC ABG pCO2 POC ABG pO2 ABG pO2 ABG HCO3 ABG O2 Saturation ABG Base Excess ABG Hemoglobin Oxyhemoglobin Sodium Potassium Chloride Carbon Dioxide BUN Creatinine Glucose POC Glucose 118 H 138 H Lactic Acid Calcium Ionized Calcium Phosphorus Magnesium Iron TIBC Ferritin Total Bilirubin Direct Bilirubin AST ALT Alkaline Phosphatase Total Creatine Kinase CK-MB (CK-2) Troponin T C-Reactive Protein Serum Total Protein Total Protein Albumin Cfxqe-7-Skcsvwtzv Ngblo-0-Dsinfnjpb PEP Interpretation Triglycerides LDL Cholesterol Direct HDL Cholesterol Free T4 PTH Intact Urine WBC (Auto) Urine Creatinine Salicylates Acetaminophen Crossmatch 04/06/19 04/06/19 04/06/19 04:44 05:20 05:23 WBC RBC Hgb Hct MCV MCHC RDW Plt Count Lymph % (Auto) [place] % (Auto) Eos % (Auto) Lymph # [place] # Eos # Seg Neutrophils % Seg Neuts % (Manual) Lymphocytes % (Manual) Monocytes % (Manual) Nucleated RBC % Seg Neutrophils # Seg Neutrophils # Man Lymphocytes # (Manual) Monocytes # (Manual) PT INR D-Dimer Heparin Anti-Xa Level POC ABG pH ABG pH POC ABG pCO2 POC ABG pO2 ABG pO2 104.0 H ABG HCO3 ABG O2 Saturation ABG Base Excess -2.1 L ABG Hemoglobin 7.3 L Oxyhemoglobin Sodium Potassium Chloride Carbon Dioxide BUN 64 H Creatinine 8.2 H Glucose 103 H POC Glucose 118 H Lactic Acid Calcium 7.3 L Ionized Calcium Phosphorus Magnesium Iron TIBC Ferritin Total Bilirubin Direct Bilirubin AST ALT Alkaline Phosphatase Total Creatine Kinase CK-MB (CK-2) Troponin T C-Reactive Protein Serum Total Protein Total Protein Albumin Lzqgq-1-Bnwlmvakf Dunui-4-Qpsycqffw PEP Interpretation Triglycerides LDL Cholesterol Direct HDL Cholesterol Free T4 PTH Intact Urine WBC (Auto) Urine Creatinine Salicylates Acetaminophen Crossmatch 04/06/19 04/07/19 04/07/19 12:02 05:40 05:40 WBC RBC 2.59 L Hgb 7.9 L Hct 23.8 L MCV MCHC RDW 15.8 H Plt Count 89 L Lymph % (Auto) [place] % (Auto) 10.3 H Eos % (Auto) Lymph # 1.1 L [place] # Eos # Seg Neutrophils % Seg Neuts % (Manual) Lymphocytes % (Manual) Monocytes % (Manual) Nucleated RBC % Seg Neutrophils # Seg Neutrophils # Man Lymphocytes # (Manual) Monocytes # (Manual) PT INR D-Dimer Heparin Anti-Xa Level POC ABG pH ABG pH POC ABG pCO2 POC ABG pO2 ABG pO2 ABG HCO3 ABG O2 Saturation ABG Base Excess ABG Hemoglobin Oxyhemoglobin Sodium 136 L Potassium 3.5 L Chloride Carbon Dioxide BUN 46 H Creatinine 6.2 H Glucose POC Glucose 108 H Lactic Acid Calcium 7.9 L Ionized Calcium Phosphorus Magnesium Iron TIBC Ferritin Total Bilirubin Direct Bilirubin AST ALT Alkaline Phosphatase Total Creatine Kinase CK-MB (CK-2) Troponin T C-Reactive Protein Serum Total Protein Total Protein Albumin Xabvd-3-Kkazjaakt Fudjw-3-[id number] PEP Interpretation Triglycerides LDL Cholesterol Direct HDL Cholesterol Free T4 PTH Intact Urine WBC (Auto) Urine Creatinine Salicylates Acetaminophen Crossmatch 04/07/19 04/09/19 04/09/19 12:57 04:28 04:28 WBC RBC 2.85 L Hgb 8.7 L Hct 26.2 L MCV MCHC RDW 15.6 H Plt Count Lymph % (Auto) [place] % (Auto) 10.4 H Eos % (Auto) Lymph # 1.0 L [place] # Eos # Seg Neutrophils % 73.3 H Seg Neuts % (Manual) Lymphocytes % (Manual) Monocytes % (Manual) Nucleated RBC % Seg Neutrophils # Seg Neutrophils # Man Lymphocytes # (Manual) Monocytes # (Manual) PT INR D-Dimer Heparin Anti-Xa Level POC ABG pH ABG pH POC ABG pCO2 POC ABG pO2 107 H ABG pO2 ABG HCO3 ABG O2 Saturation ABG Base Excess ABG Hemoglobin Oxyhemoglobin Sodium Potassium 3.5 L Chloride 97.8 L Carbon Dioxide BUN 62 H Creatinine 8.1 H Glucose POC Glucose Lactic Acid Calcium 8.2 L Ionized Calcium Phosphorus 5.10 H Magnesium Iron TIBC Ferritin Total Bilirubin Direct Bilirubin AST ALT Alkaline Phosphatase Total Creatine Kinase CK-MB (CK-2) Troponin T C-Reactive Protein Serum Total Protein Total Protein Albumin Asosv-2-Zxuorooym Xpahs-0-Okwcnyrjd PEP Interpretation Triglycerides LDL Cholesterol Direct HDL Cholesterol Free T4 PTH Intact Urine WBC (Auto) Urine Creatinine Salicylates Acetaminophen Crossmatch 04/10/19 04/11/19 04/11/19 18:15 00:25 04:16 WBC 11.5 H RBC 2.91 L Hgb 8.9 L Hct 27.6 L MCV 95 H MCHC RDW 17.5 H Plt Count Lymph % (Auto) [place] % (Auto) Eos % (Auto) Lymph # [place] # Eos # Seg Neutrophils % Seg Neuts % (Manual) 71.0 H Lymphocytes % (Manual) Monocytes % (Manual) 8.0 H Nucleated RBC % Seg Neutrophils # Seg Neutrophils # Man 8.2 H Lymphocytes # (Manual) Monocytes # (Manual) 0.9 H PT INR D-Dimer Heparin Anti-Xa Level POC ABG pH ABG pH POC ABG pCO2 POC ABG pO2 ABG pO2 ABG HCO3 ABG O2 Saturation ABG Base Excess ABG Hemoglobin Oxyhemoglobin Sodium Potassium Chloride Carbon Dioxide BUN Creatinine Glucose POC Glucose 109 H 114 H Lactic Acid Calcium Ionized Calcium Phosphorus Magnesium Iron TIBC Ferritin Total Bilirubin Direct Bilirubin AST ALT Alkaline Phosphatase Total Creatine Kinase CK-MB (CK-2) Troponin T C-Reactive Protein Serum Total Protein Total Protein Albumin Pvzsv-0-Afxyhpvow Ngddh-3-Zhzelchvt PEP Interpretation Triglycerides LDL Cholesterol Direct HDL Cholesterol Free T4 PTH Intact Urine WBC (Auto) Urine Creatinine Salicylates Acetaminophen Crossmatch 04/11/19 04/11/19 04/11/19 06:47 09:21 12:15 WBC RBC Hgb Hct MCV MCHC RDW Plt Count Lymph % (Auto) [place] % (Auto) Eos % (Auto) Lymph # [place] # Eos # Seg Neutrophils % Seg Neuts % (Manual) Lymphocytes % (Manual) Monocytes % (Manual) Nucleated RBC % Seg Neutrophils # Seg Neutrophils # Man Lymphocytes # (Manual) Monocytes # (Manual) PT INR D-Dimer Heparin Anti-Xa Level POC ABG pH ABG pH POC ABG pCO2 POC ABG pO2 ABG pO2 ABG HCO3 ABG O2 Saturation ABG Base Excess ABG Hemoglobin Oxyhemoglobin Sodium Potassium 3.5 L Chloride Carbon Dioxide BUN 45 H Creatinine 6.0 H Glucose 113 H POC Glucose 106 H 109 H Lactic Acid Calcium Ionized Calcium Phosphorus Magnesium Iron TIBC Ferritin Total Bilirubin Direct Bilirubin AST ALT Alkaline Phosphatase Total Creatine Kinase CK-MB (CK-2) Troponin T C-Reactive Protein Serum Total Protein Total Protein Albumin Sqqau-7-Sfqvtbjvi Vgcmm-7-Mhmnrlvac PEP Interpretation Triglycerides LDL Cholesterol Direct HDL Cholesterol Free T4 PTH Intact Urine WBC (Auto) Urine Creatinine Salicylates Acetaminophen Crossmatch 04/11/19 04/12/19 04/12/19 18:42 12:13 23:52 WBC RBC Hgb Hct MCV MCHC RDW Plt Count Lymph % (Auto) [place] % (Auto) Eos % (Auto) Lymph # [place] # Eos # Seg Neutrophils % Seg Neuts % (Manual) Lymphocytes % (Manual) Monocytes % (Manual) Nucleated RBC % Seg Neutrophils # Seg Neutrophils # Man Lymphocytes # (Manual) Monocytes # (Manual) PT INR D-Dimer Heparin Anti-Xa Level POC ABG pH ABG pH POC ABG pCO2 POC ABG pO2 ABG pO2 ABG HCO3 ABG O2 Saturation ABG Base Excess ABG Hemoglobin Oxyhemoglobin Sodium Potassium Chloride Carbon Dioxide BUN Creatinine Glucose POC Glucose 107 H 115 H 124 H Lactic Acid Calcium Ionized Calcium Phosphorus Magnesium Iron TIBC Ferritin Total Bilirubin Direct Bilirubin AST ALT Alkaline Phosphatase Total Creatine Kinase CK-MB (CK-2) Troponin T C-Reactive Protein Serum Total Protein Total Protein Albumin Ffmys-0-Lbiwswrsf Qdkuk-9-Ywvtizayy PEP Interpretation Triglycerides LDL Cholesterol Direct HDL Cholesterol Free T4 PTH Intact Urine WBC (Auto) Urine Creatinine Salicylates Acetaminophen Crossmatch 04/13/19 04/13/19 04/13/19 05:00 05:00 05:47 WBC 11.7 H RBC 2.97 L Hgb 8.8 L Hct 27.3 L MCV MCHC RDW 16.1 H Plt Count Lymph % (Auto) 9.5 L [place] % (Auto) 9.9 H Eos % (Auto) Lymph # 1.1 L [place] # 1.2 H Eos # Seg Neutrophils % 78.6 H Seg Neuts % (Manual) Lymphocytes % (Manual) Monocytes % (Manual) Nucleated RBC % Seg Neutrophils # 9.2 H Seg Neutrophils # Man Lymphocytes # (Manual) Monocytes # (Manual) PT INR D-Dimer Heparin Anti-Xa Level POC ABG pH ABG pH POC ABG pCO2 POC ABG pO2 ABG pO2 ABG HCO3 ABG O2 Saturation ABG Base Excess ABG Hemoglobin Oxyhemoglobin Sodium Potassium 3.5 L Chloride Carbon Dioxide BUN 42 H Creatinine 4.6 H Glucose 106 H POC Glucose 107 H Lactic Acid Calcium 10.6 H D Ionized Calcium Phosphorus 5.90 H Magnesium Iron TIBC Ferritin Total Bilirubin Direct Bilirubin AST ALT Alkaline Phosphatase Total Creatine Kinase CK-MB (CK-2) Troponin T C-Reactive Protein Serum Total Protein Total Protein 5.8 L Albumin 2.5 L Yjkih-8-Huapqvfwa Duoow-8-Alcapbxft PEP Interpretation Triglycerides LDL Cholesterol Direct HDL Cholesterol Free T4 PTH Intact Urine WBC (Auto) Urine Creatinine Salicylates Acetaminophen Crossmatch 04/13/19 04/14/19 04/14/19 17:32 00:00 03:55 WBC RBC Hgb Hct MCV MCHC RDW Plt Count Lymph % (Auto) [place] % (Auto) Eos % (Auto) Lymph # [place] # Eos # Seg Neutrophils % Seg Neuts % (Manual) Lymphocytes % (Manual) Monocytes % (Manual) Nucleated RBC % Seg Neutrophils # Seg Neutrophils # Man Lymphocytes # (Manual) Monocytes # (Manual) PT INR D-Dimer Heparin Anti-Xa Level POC ABG pH ABG pH POC ABG pCO2 POC ABG pO2 ABG pO2 ABG HCO3 ABG O2 Saturation ABG Base Excess ABG Hemoglobin Oxyhemoglobin Sodium Potassium 3.0 L Chloride Carbon Dioxide BUN 30 H Creatinine 3.1 H Glucose POC Glucose 112 H 120 H Lactic Acid Calcium 10.8 H Ionized Calcium Phosphorus Magnesium Iron TIBC Ferritin Total Bilirubin Direct Bilirubin AST ALT Alkaline Phosphatase Total Creatine Kinase CK-MB (CK-2) Troponin T C-Reactive Protein Serum Total Protein Total Protein Albumin Wvuxu-0-Lhewedwyh Uxbvy-9-Ktrqkiehf PEP Interpretation Triglycerides LDL Cholesterol Direct HDL Cholesterol Free T4 PTH Intact Urine WBC (Auto) Urine Creatinine Salicylates Acetaminophen Crossmatch 04/14/19 04/14/19 04/15/19 11:56 23:28 05:11 WBC 13.0 H RBC 2.93 L Hgb 8.6 L Hct 26.5 L MCV MCHC RDW 16.5 H Plt Count Lymph % (Auto) 12.2 L [place] % (Auto) 9.1 H Eos % (Auto) Lymph # [place] # 1.2 H Eos # Seg Neutrophils % 77.6 H Seg Neuts % (Manual) Lymphocytes % (Manual) Monocytes % (Manual) Nucleated RBC % Seg Neutrophils # 10.1 H Seg Neutrophils # Man Lymphocytes # (Manual) Monocytes # (Manual) PT INR D-Dimer Heparin Anti-Xa Level POC ABG pH ABG pH POC ABG pCO2 POC ABG pO2 ABG pO2 ABG HCO3 ABG O2 Saturation ABG Base Excess ABG Hemoglobin Oxyhemoglobin Sodium Potassium Chloride Carbon Dioxide BUN Creatinine Glucose POC Glucose 109 H 112 H Lactic Acid Calcium Ionized Calcium Phosphorus Magnesium Iron TIBC Ferritin Total Bilirubin Direct Bilirubin AST ALT Alkaline Phosphatase Total Creatine Kinase CK-MB (CK-2) Troponin T C-Reactive Protein Serum Total Protein Total Protein Albumin Vuxcs-5-Ggipqqzpy Wlfqe-1-Otmhpcuku PEP Interpretation Triglycerides LDL Cholesterol Direct HDL Cholesterol Free T4 PTH Intact Urine WBC (Auto) Urine Creatinine Salicylates Acetaminophen Crossmatch 04/15/19 04/15/19 04/15/19 05:11 05:31 18:03 WBC RBC Hgb Hct MCV MCHC RDW Plt Count Lymph % (Auto) [place] % (Auto) Eos % (Auto) Lymph # [place] # Eos # Seg Neutrophils % Seg Neuts % (Manual) Lymphocytes % (Manual) Monocytes % (Manual) Nucleated RBC % Seg Neutrophils # Seg Neutrophils # Man Lymphocytes # (Manual) Monocytes # (Manual) PT INR D-Dimer Heparin Anti-Xa Level POC ABG pH ABG pH POC ABG pCO2 POC ABG pO2 ABG pO2 ABG HCO3 ABG O2 Saturation ABG Base Excess ABG Hemoglobin Oxyhemoglobin Sodium Potassium 3.2 L Chloride Carbon Dioxide BUN 44 H Creatinine 3.6 H Glucose 106 H POC Glucose 110 H 121 H Lactic Acid Calcium 12.0 H Ionized Calcium Phosphorus 5.00 H Magnesium Iron TIBC Ferritin Total Bilirubin Direct Bilirubin AST ALT Alkaline Phosphatase Total Creatine Kinase CK-MB (CK-2) Troponin T C-Reactive Protein Serum Total Protein Total Protein Albumin Tmgfd-1-Mtmcoytnr Wssqo-9-Kmudtouvu PEP Interpretation Triglycerides LDL Cholesterol Direct HDL Cholesterol Free T4 PTH Intact Urine WBC (Auto) Urine Creatinine Salicylates Acetaminophen Crossmatch 04/16/19 04/16/19 04/17/19 05:07 05:07 04:15 WBC 12.6 H RBC 3.12 L Hgb 9.0 L Hct 28.2 L MCV MCHC RDW 16.6 H Plt Count Lymph % (Auto) 10.3 L [place] % (Auto) 9.8 H Eos % (Auto) Lymph # [place] # 1.2 H Eos # Seg Neutrophils % 78.2 H Seg Neuts % (Manual) Lymphocytes % (Manual) Monocytes % (Manual) Nucleated RBC % Seg Neutrophils # 9.9 H Seg Neutrophils # Man Lymphocytes # (Manual) Monocytes # (Manual) PT INR D-Dimer Heparin Anti-Xa Level POC ABG pH ABG pH POC ABG pCO2 POC ABG pO2 ABG pO2 ABG HCO3 ABG O2 Saturation ABG Base Excess ABG Hemoglobin Oxyhemoglobin Sodium 147 H 150 H Potassium 3.5 L 3.1 L Chloride Carbon Dioxide 32 H BUN 54 H 65 H Creatinine 3.8 H 4.0 H Glucose 102 H 107 H POC Glucose Lactic Acid Calcium 11.7 H 12.0 H Ionized Calcium Phosphorus 5.40 H Magnesium Iron TIBC Ferritin Total Bilirubin Direct Bilirubin AST ALT Alkaline Phosphatase Total Creatine Kinase CK-MB (CK-2) Troponin T C-Reactive Protein 7.10 H Serum Total Protein Total Protein Albumin Smblz-6-Ukcdpyauw Zdhmy-9-Tariaukyr PEP Interpretation Triglycerides LDL Cholesterol Direct HDL Cholesterol Free T4 PTH Intact Urine WBC (Auto) Urine Creatinine Salicylates Acetaminophen Crossmatch 04/17/19 04/17/19 04/17/19 04:15 06:05 12:49 WBC 15.8 H RBC 3.32 L Hgb 9.5 L Hct 29.9 L MCV MCHC RDW 16.9 H Plt Count Lymph % (Auto) 12.6 L [place] % (Auto) 11.1 H Eos % (Auto) Lymph # [place] # 1.7 H Eos # Seg Neutrophils % 74.7 H Seg Neuts % (Manual) Lymphocytes % (Manual) Monocytes % (Manual) Nucleated RBC % Seg Neutrophils # 11.8 H Seg Neutrophils # Man Lymphocytes # (Manual) Monocytes # (Manual) PT INR D-Dimer Heparin Anti-Xa Level POC ABG pH ABG pH POC ABG pCO2 POC ABG pO2 ABG pO2 ABG HCO3 ABG O2 Saturation ABG Base Excess ABG Hemoglobin Oxyhemoglobin Sodium Potassium Chloride Carbon Dioxide BUN Creatinine Glucose POC Glucose 111 H 108 H Lactic Acid Calcium Ionized Calcium Phosphorus Magnesium Iron TIBC Ferritin Total Bilirubin Direct Bilirubin AST ALT Alkaline Phosphatase Total Creatine Kinase CK-MB (CK-2) Troponin T C-Reactive Protein Serum Total Protein Total Protein Albumin Ustyk-2-Hojbanpkp Dbqck-8-Xetrwyvyk PEP Interpretation Triglycerides LDL Cholesterol Direct HDL Cholesterol Free T4 PTH Intact Urine WBC (Auto) Urine Creatinine Salicylates Acetaminophen Crossmatch 04/18/19 04/18/19 04/18/19 00:23 04:41 04:41 WBC 19.4 H RBC 3.03 L Hgb 8.6 L Hct 27.5 L MCV MCHC 31 L RDW 16.9 H Plt Count Lymph % (Auto) [place] % (Auto) Eos % (Auto) Lymph # [place] # Eos # Seg Neutrophils % Seg Neuts % (Manual) Lymphocytes % (Manual) Monocytes % (Manual) Nucleated RBC % Seg Neutrophils # Seg Neutrophils # Man Lymphocytes # (Manual) Monocytes # (Manual) PT INR D-Dimer Heparin Anti-Xa Level POC ABG pH ABG pH POC ABG pCO2 POC ABG pO2 ABG pO2 ABG HCO3 ABG O2 Saturation ABG Base Excess ABG Hemoglobin Oxyhemoglobin Sodium 152 H Potassium 3.0 L Chloride Carbon Dioxide BUN 80 H Creatinine 4.3 H Glucose 103 H POC Glucose 115 H Lactic Acid Calcium 11.4 H Ionized Calcium Phosphorus Magnesium Iron TIBC Ferritin Total Bilirubin Direct Bilirubin AST ALT Alkaline Phosphatase Total Creatine Kinase CK-MB (CK-2) Troponin T C-Reactive Protein Serum Total Protein Total Protein Albumin Esuna-5-Mjjojfvtx Ruvtp-6-Mzwoaqndi PEP Interpretation Triglycerides LDL Cholesterol Direct HDL Cholesterol Free T4 PTH Intact Urine WBC (Auto) Urine Creatinine Salicylates Acetaminophen Crossmatch 04/18/19 04/18/19 04/18/19 06:17 12:16 18:10 WBC RBC Hgb Hct MCV MCHC RDW Plt Count Lymph % (Auto) [place] % (Auto) Eos % (Auto) Lymph # [place] # Eos # Seg Neutrophils % Seg Neuts % (Manual) Lymphocytes % (Manual) Monocytes % (Manual) Nucleated RBC % Seg Neutrophils # Seg Neutrophils # Man Lymphocytes # (Manual) Monocytes # (Manual) PT INR D-Dimer Heparin Anti-Xa Level POC ABG pH ABG pH POC ABG pCO2 POC ABG pO2 ABG pO2 ABG HCO3 ABG O2 Saturation ABG Base Excess ABG Hemoglobin Oxyhemoglobin Sodium Potassium Chloride Carbon Dioxide BUN Creatinine Glucose POC Glucose 124 H 119 H 111 H Lactic Acid Calcium Ionized Calcium Phosphorus Magnesium Iron TIBC Ferritin Total Bilirubin Direct Bilirubin AST ALT Alkaline Phosphatase Total Creatine Kinase CK-MB (CK-2) Troponin T C-Reactive Protein Serum Total Protein Total Protein Albumin Bgiye-3-Nlngmacti Xvadp-6-Fkwnjweii PEP Interpretation Triglycerides LDL Cholesterol Direct HDL Cholesterol Free T4 PTH Intact Urine WBC (Auto) Urine Creatinine Salicylates Acetaminophen Crossmatch 04/19/19 04/19/19 04/20/19 03:49 05:27 09:09 WBC RBC Hgb Hct MCV MCHC RDW Plt Count Lymph % (Auto) [place] % (Auto) Eos % (Auto) Lymph # [place] # Eos # Seg Neutrophils % Seg Neuts % (Manual) Lymphocytes % (Manual) Monocytes % (Manual) Nucleated RBC % Seg Neutrophils # Seg Neutrophils # Man Lymphocytes # (Manual) Monocytes # (Manual) PT INR D-Dimer Heparin Anti-Xa Level POC ABG pH ABG pH POC ABG pCO2 POC ABG pO2 ABG pO2 ABG HCO3 ABG O2 Saturation ABG Base Excess ABG Hemoglobin Oxyhemoglobin Sodium 147 H 150 H Potassium 3.3 L Chloride 108.9 H Carbon Dioxide BUN 45 H 70 H Creatinine 2.9 H 4.1 H Glucose 105 H POC Glucose 124 H Lactic Acid Calcium 10.6 H 11.6 H Ionized Calcium Phosphorus Magnesium Iron TIBC Ferritin Total Bilirubin Direct Bilirubin AST ALT Alkaline Phosphatase Total Creatine Kinase CK-MB (CK-2) Troponin T C-Reactive Protein Serum Total Protein Total Protein Albumin Vsteb-2-Uslxflkkd Gquih-0-Fzwugakow PEP Interpretation Triglycerides LDL Cholesterol Direct HDL Cholesterol Free T4 PTH Intact Urine WBC (Auto) Urine Creatinine Salicylates Acetaminophen Crossmatch 04/20/19 04/20/19 04/21/19 12:29 18:45 01:34 WBC RBC Hgb Hct MCV MCHC RDW Plt Count Lymph % (Auto) [place] % (Auto) Eos % (Auto) Lymph # [place] # Eos # Seg Neutrophils % Seg Neuts % (Manual) Lymphocytes % (Manual) Monocytes % (Manual) Nucleated RBC % Seg Neutrophils # Seg Neutrophils # Man Lymphocytes # (Manual) Monocytes # (Manual) PT INR D-Dimer Heparin Anti-Xa Level POC ABG pH ABG pH POC ABG pCO2 POC ABG pO2 ABG pO2 ABG HCO3 ABG O2 Saturation ABG Base Excess ABG Hemoglobin Oxyhemoglobin Sodium Potassium Chloride Carbon Dioxide BUN 40 H Creatinine 2.6 H Glucose 104 H POC Glucose 131 H 134 H Lactic Acid Calcium 11.0 H Ionized Calcium Phosphorus Magnesium Iron TIBC Ferritin Total Bilirubin Direct Bilirubin AST ALT Alkaline Phosphatase Total Creatine Kinase CK-MB (CK-2) Troponin T C-Reactive Protein Serum Total Protein Total Protein Albumin Mjxns-5-Kcwdeyumq Jhqtq-9-Lyupjjtky PEP Interpretation Triglycerides LDL Cholesterol Direct HDL Cholesterol Free T4 PTH Intact Urine WBC (Auto) Urine Creatinine Salicylates Acetaminophen Crossmatch 1004/21/19 04/22/19 04:22 04:22 04:24 WBC 14.2 H 14.3 H RBC 3.02 L 3.57 L Hgb 8.7 L 10.1 L Hct 27.2 L 32.1 L MCV MCHC RDW 16.7 H 17.2 H Plt Count Lymph % (Auto) [place] % (Auto) Eos % (Auto) Lymph # [place] # Eos # Seg Neutrophils % Seg Neuts % (Manual) Lymphocytes % (Manual) Monocytes % (Manual) Nucleated RBC % Seg Neutrophils # Seg Neutrophils # Man Lymphocytes # (Manual) Monocytes # (Manual) PT INR D-Dimer Heparin Anti-Xa Level POC ABG pH ABG pH POC ABG pCO2 POC ABG pO2 ABG pO2 ABG HCO3 ABG O2 Saturation ABG Base Excess ABG Hemoglobin Oxyhemoglobin Sodium Potassium Chloride Carbon Dioxide BUN Creatinine Glucose POC Glucose Lactic Acid Calcium Ionized Calcium Phosphorus Magnesium Iron TIBC Ferritin Total Bilirubin Direct Bilirubin AST ALT Alkaline Phosphatase Total Creatine Kinase CK-MB (CK-2) Troponin T C-Reactive Protein Serum Total Protein 5.7 L Total Protein Albumin 2.3 L Ajeuu-4-Orapkxqna 0.5 H Lmdpi-1-Bmhlifxog 1.0 H PEP Interpretation see below H Triglycerides LDL Cholesterol Direct HDL Cholesterol Free T4 PTH Intact Urine WBC (Auto) Urine Creatinine Salicylates Acetaminophen Crossmatch 04/22/19 04/22/19 04/22/19 04:24 06:37 11:57 WBC RBC Hgb Hct MCV MCHC RDW Plt Count Lymph % (Auto) [place] % (Auto) Eos % (Auto) Lymph # [place] # Eos # Seg Neutrophils % Seg Neuts % (Manual) Lymphocytes % (Manual) Monocytes % (Manual) Nucleated RBC % Seg Neutrophils # Seg Neutrophils # Man Lymphocytes # (Manual) Monocytes # (Manual) PT INR D-Dimer Heparin Anti-Xa Level POC ABG pH ABG pH POC ABG pCO2 POC ABG pO2 ABG pO2 ABG HCO3 ABG O2 Saturation ABG Base Excess ABG Hemoglobin Oxyhemoglobin Sodium Potassium Chloride Carbon Dioxide BUN 54 H Creatinine 3.5 H Glucose POC Glucose 113 H 110 H Lactic Acid Calcium 11.4 H Ionized Calcium Phosphorus Magnesium Iron TIBC Ferritin Total Bilirubin Direct Bilirubin AST ALT Alkaline Phosphatase Total Creatine Kinase CK-MB (CK-2) Troponin T C-Reactive Protein Serum Total Protein Total Protein Albumin Vporh-2-Vjrtidjdh Rbyln-0-Hgngibpar PEP Interpretation Triglycerides LDL Cholesterol Direct HDL Cholesterol Free T4 PTH Intact Urine WBC (Auto) Urine Creatinine Salicylates Acetaminophen Crossmatch 04/22/19 04/23/19 04/23/19 18:33 04:06 04:06 WBC 16.1 H RBC 3.36 L Hgb 9.8 L Hct 30.8 L MCV MCHC RDW 17.7 H Plt Count Lymph % (Auto) 9.9 L [place] % (Auto) Eos % (Auto) Lymph # [place] # Eos # Seg Neutrophils % 84.2 H Seg Neuts % (Manual) Lymphocytes % (Manual) Monocytes % (Manual) Nucleated RBC % Seg Neutrophils # 13.6 H Seg Neutrophils # Man Lymphocytes # (Manual) Monocytes # (Manual) PT INR D-Dimer Heparin Anti-Xa Level POC ABG pH ABG pH POC ABG pCO2 POC ABG pO2 ABG pO2 ABG HCO3 ABG O2 Saturation ABG Base Excess ABG Hemoglobin Oxyhemoglobin Sodium Potassium Chloride Carbon Dioxide BUN 59 H Creatinine 3.8 H Glucose POC Glucose 120 H Lactic Acid Calcium 12.3 H* Ionized Calcium Phosphorus 5.70 H Magnesium Iron TIBC Ferritin Total Bilirubin Direct Bilirubin AST ALT Alkaline Phosphatase Total Creatine Kinase CK-MB (CK-2) Troponin T C-Reactive Protein Serum Total Protein Total Protein Albumin 3.2 L Nktvj-0-Pqhtjftwm Ybcrd-8-Zmvtvswad PEP Interpretation Triglycerides LDL Cholesterol Direct HDL Cholesterol Free T4 PTH Intact Urine WBC (Auto) Urine Creatinine Salicylates Acetaminophen Crossmatch 04/23/19 04/24/19 04/24/19 18:06 04:12 04:12 WBC 18.0 H RBC 3.46 L Hgb 9.8 L Hct 31.2 L MCV MCHC 31 L RDW 17.5 H Plt Count Lymph % (Auto) 11.1 L [place] % (Auto) Eos % (Auto) Lymph # [place] # Eos # Seg Neutrophils % 81.9 H Seg Neuts % (Manual) Lymphocytes % (Manual) Monocytes % (Manual) Nucleated RBC % Seg Neutrophils # 14.7 H Seg Neutrophils # Man Lymphocytes # (Manual) Monocytes # (Manual) PT INR D-Dimer Heparin Anti-Xa Level POC ABG pH ABG pH POC ABG pCO2 POC ABG pO2 ABG pO2 ABG HCO3 ABG O2 Saturation ABG Base Excess ABG Hemoglobin Oxyhemoglobin Sodium Potassium Chloride Carbon Dioxide BUN 56 H Creatinine 3.6 H Glucose POC Glucose 124 H Lactic Acid Calcium 12.6 H* Ionized Calcium Phosphorus Magnesium Iron TIBC Ferritin Total Bilirubin Direct Bilirubin AST ALT Alkaline Phosphatase Total Creatine Kinase CK-MB (CK-2) Troponin T C-Reactive Protein Serum Total Protein Total Protein Albumin 3.2 L Qlish-9-Ocdegndez Grdys-1-Azpvlkwms PEP Interpretation Triglycerides LDL Cholesterol Direct HDL Cholesterol Free T4 PTH Intact Urine WBC (Auto) Urine Creatinine Salicylates Acetaminophen Crossmatch 04/24/19 04/24/19 04/25/19 06:21 11:47 05:58 WBC 18.0 H RBC 2.98 L Hgb 8.3 L Hct 26.5 L MCV MCHC 31 L RDW 17.9 H Plt Count Lymph % (Auto) 10.1 L [place] % (Auto) Eos % (Auto) Lymph # [place] # 0.9 H Eos # Seg Neutrophils % 82.8 H Seg Neuts % (Manual) Lymphocytes % (Manual) Monocytes % (Manual) Nucleated RBC % Seg Neutrophils # 15.0 H Seg Neutrophils # Man Lymphocytes # (Manual) Monocytes # (Manual) PT INR D-Dimer Heparin Anti-Xa Level POC ABG pH ABG pH POC ABG pCO2 POC ABG pO2 ABG pO2 ABG HCO3 ABG O2 Saturation ABG Base Excess ABG Hemoglobin Oxyhemoglobin Sodium Potassium Chloride Carbon Dioxide BUN Creatinine Glucose POC Glucose 132 H 106 H Lactic Acid Calcium Ionized Calcium Phosphorus Magnesium Iron TIBC Ferritin Total Bilirubin Direct Bilirubin AST ALT Alkaline Phosphatase Total Creatine Kinase CK-MB (CK-2) Troponin T C-Reactive Protein Serum Total Protein Total Protein Albumin Wtzou-3-Obxboekzw Epsqy-2-Diezrkhaf PEP Interpretation Triglycerides LDL Cholesterol Direct HDL Cholesterol Free T4 PTH Intact Urine WBC (Auto) Urine Creatinine Salicylates Acetaminophen Crossmatch 04/25/19 04/26/19 04/26/19 05:58 05:57 06:08 WBC RBC Hgb Hct MCV MCHC RDW Plt Count Lymph % (Auto) [place] % (Auto) Eos % (Auto) Lymph # [place] # Eos # Seg Neutrophils % Seg Neuts % (Manual) Lymphocytes % (Manual) Monocytes % (Manual) Nucleated RBC % Seg Neutrophils # Seg Neutrophils # Man Lymphocytes # (Manual) Monocytes # (Manual) PT INR D-Dimer Heparin Anti-Xa Level POC ABG pH ABG pH POC ABG pCO2 POC ABG pO2 ABG pO2 ABG HCO3 ABG O2 Saturation ABG Base Excess ABG Hemoglobin Oxyhemoglobin Sodium Potassium 3.2 L Chloride Carbon Dioxide BUN 52 H 48 H Creatinine 3.2 H 2.9 H Glucose 108 H 112 H POC Glucose 109 H Lactic Acid Calcium 11.4 H 12.5 H* Ionized Calcium Phosphorus 5.90 H Magnesium Iron TIBC Ferritin Total Bilirubin Direct Bilirubin AST ALT Alkaline Phosphatase Total Creatine Kinase CK-MB (CK-2) Troponin T C-Reactive Protein Serum Total Protein Total Protein Albumin 3.0 L Ielez-2-Komyhifss Qvsly-2-Yfsphcuqt PEP Interpretation Triglycerides LDL Cholesterol Direct HDL Cholesterol Free T4 PTH Intact Urine WBC (Auto) Urine Creatinine Salicylates Acetaminophen Crossmatch 04/26/19 04/26/19 04/27/19 07:22 13:39 05:05 WBC 11.9 H RBC 3.01 L Hgb 8.6 L Hct 26.3 L MCV MCHC RDW 17.6 H Plt Count Lymph % (Auto) 11.9 L [place] % (Auto) Eos % (Auto) Lymph # [place] # Eos # Seg Neutrophils % 78.3 H Seg Neuts % (Manual) Lymphocytes % (Manual) Monocytes % (Manual) Nucleated RBC % Seg Neutrophils # 9.4 H Seg Neutrophils # Man Lymphocytes # (Manual) Monocytes # (Manual) PT INR D-Dimer Heparin Anti-Xa Level POC ABG pH ABG pH POC ABG pCO2 POC ABG pO2 ABG pO2 ABG HCO3 ABG O2 Saturation ABG Base Excess ABG Hemoglobin Oxyhemoglobin Sodium Potassium Chloride Carbon Dioxide BUN 46 H Creatinine 2.8 H Glucose POC Glucose Lactic Acid Calcium > 13.0 H* 12.2 H* Ionized Calcium Phosphorus Magnesium Iron TIBC Ferritin Total Bilirubin Direct Bilirubin AST ALT Alkaline Phosphatase Total Creatine Kinase CK-MB (CK-2) Troponin T C-Reactive Protein Serum Total Protein Total Protein Albumin Bqfau-6-Zyirijaci Aafno-8-Ndnukuroc PEP Interpretation Triglycerides LDL Cholesterol Direct HDL Cholesterol Free T4 PTH Intact Urine WBC (Auto) Urine Creatinine Salicylates Acetaminophen Crossmatch 04/27/19 04/28/19 04/29/19 05:05 05:17 14:14 WBC RBC Hgb Hct MCV MCHC RDW Plt Count Lymph % (Auto) [place] % (Auto) Eos % (Auto) Lymph # [place] # Eos # Seg Neutrophils % Seg Neuts % (Manual) Lymphocytes % (Manual) Monocytes % (Manual) Nucleated RBC % Seg Neutrophils # Seg Neutrophils # Man Lymphocytes # (Manual) Monocytes # (Manual) PT INR D-Dimer Heparin Anti-Xa Level POC ABG pH ABG pH POC ABG pCO2 POC ABG pO2 ABG pO2 ABG HCO3 ABG O2 Saturation ABG Base Excess ABG Hemoglobin Oxyhemoglobin Sodium 136 L Potassium 3.2 L 3.4 L Chloride Carbon Dioxide BUN 40 H 34 H 33 H Creatinine 2.5 H 2.0 H 1.9 H Glucose 113 H 107 H POC Glucose Lactic Acid Calcium 12.3 H* 12.1 H* 11.5 H Ionized Calcium Phosphorus Magnesium Iron TIBC Ferritin Total Bilirubin Direct Bilirubin AST ALT Alkaline Phosphatase Total Creatine Kinase CK-MB (CK-2) Troponin T C-Reactive Protein Serum Total Protein Total Protein 6.2 L Albumin 2.8 L Ajapi-7-Rcznyvpgt Mkhbx-7-Wubdqlhvs PEP Interpretation Triglycerides LDL Cholesterol Direct HDL Cholesterol Free T4 PTH Intact Urine WBC (Auto) Urine Creatinine Salicylates Acetaminophen Crossmatch 04/29/19 04/29/19 04/30/19 14:14 14:14 06:47 WBC RBC Hgb Hct MCV MCHC RDW Plt Count Lymph % (Auto) [place] % (Auto) Eos % (Auto) Lymph # [place] # Eos # Seg Neutrophils % Seg Neuts % (Manual) Lymphocytes % (Manual) Monocytes % (Manual) Nucleated RBC % Seg Neutrophils # Seg Neutrophils # Man Lymphocytes # (Manual) Monocytes # (Manual) PT INR D-Dimer Heparin Anti-Xa Level POC ABG pH ABG pH POC ABG pCO2 POC ABG pO2 ABG pO2 ABG HCO3 ABG O2 Saturation ABG Base Excess ABG Hemoglobin Oxyhemoglobin Sodium Potassium 3.2 L Chloride Carbon Dioxide 21 L BUN 26 H Creatinine 1.8 H Glucose POC Glucose Lactic Acid Calcium 10.8 H Ionized Calcium 7.2 H* Phosphorus Magnesium Iron TIBC Ferritin Total Bilirubin Direct Bilirubin AST ALT Alkaline Phosphatase Total Creatine Kinase CK-MB (CK-2) Troponin T C-Reactive Protein Serum Total Protein Total Protein Albumin Wggge-7-Rohmpqvsy Dooyk-6-Croavpnsk PEP Interpretation Triglycerides LDL Cholesterol Direct HDL Cholesterol Free T4 PTH Intact 8.83 L Urine WBC (Auto) Urine Creatinine Salicylates Acetaminophen Crossmatch 04/30/19 05/01/19 05/01/19 12:17 06:52 06:52 WBC 15.4 H RBC 3.01 L Hgb 8.4 L Hct 26.2 L MCV MCHC RDW 17.0 H Plt Count Lymph % (Auto) 8.4 L Gentry % (Auto) 8.9 H Eos % (Auto) Lymph # Gentry # 1.4 H Eos # 0.5 H Seg Neutrophils % 78.7 H Seg Neuts % (Manual) Lymphocytes % (Manual) Monocytes % (Manual) Nucleated RBC % Seg Neutrophils # 12.1 H Seg Neutrophils # Man Lymphocytes # (Manual) Monocytes # (Manual) PT INR D-Dimer Heparin Anti-Xa Level POC ABG pH ABG pH POC ABG pCO2 POC ABG pO2 ABG pO2 ABG HCO3 ABG O2 Saturation ABG Base Excess ABG Hemoglobin Oxyhemoglobin Sodium Potassium 3.0 L Chloride Carbon Dioxide BUN 22 H Creatinine Glucose POC Glucose 106 H Lactic Acid Calcium 11.2 H Ionized Calcium Phosphorus Magnesium Iron TIBC Ferritin Total Bilirubin Direct Bilirubin AST ALT Alkaline Phosphatase Total Creatine Kinase CK-MB (CK-2) Troponin T C-Reactive Protein Serum Total Protein Total Protein Albumin 3.0 L Aavxq-6-Bztiwnlam Offfl-9-Wxcsfdeff PEP Interpretation Triglycerides LDL Cholesterol Direct HDL Cholesterol Free T4 PTH Intact Urine WBC (Auto) Urine Creatinine Salicylates Acetaminophen Crossmatch 05/01/19 05/01/19 05/02/19 06:52 18:40 05:32 WBC RBC Hgb Hct MCV MCHC RDW Plt Count Lymph % (Auto) Gentry % (Auto) Eos % (Auto) Lymph # Gentry # Eos # Seg Neutrophils % Seg Neuts % (Manual) Lymphocytes % (Manual) Monocytes % (Manual) Nucleated RBC % Seg Neutrophils # Seg Neutrophils # Man Lymphocytes # (Manual) Monocytes # (Manual) PT INR D-Dimer Heparin Anti-Xa Level POC ABG pH ABG pH POC ABG pCO2 POC ABG pO2 ABG pO2 ABG HCO3 ABG O2 Saturation ABG Base Excess ABG Hemoglobin Oxyhemoglobin Sodium Potassium Chloride Carbon Dioxide BUN Creatinine Glucose POC Glucose 169 H 109 H Lactic Acid Calcium Ionized Calcium Phosphorus Magnesium Iron TIBC Ferritin Total Bilirubin Direct Bilirubin AST ALT Alkaline Phosphatase Total Creatine Kinase CK-MB (CK-2) Troponin T C-Reactive Protein Serum Total Protein 5.7 L Total Protein Albumin 2.5 L Sjpcm-0-Yovjmjfrh 0.5 H Rtxif-8-Mugkanavr PEP Interpretation see below H Triglycerides LDL Cholesterol Direct HDL Cholesterol Free T4 PTH Intact Urine WBC (Auto) Urine Creatinine Salicylates Acetaminophen Crossmatch 05/02/19 05/02/19 05/02/19 05:57 05:57 11:43 WBC 14.2 H RBC 2.96 L Hgb 8.3 L Hct 26.0 L MCV MCHC RDW 16.8 H Plt Count Lymph % (Auto) Gentry % (Auto) Eos % (Auto) Lymph # Gentry # Eos # Seg Neutrophils % Seg Neuts % (Manual) Lymphocytes % (Manual) Monocytes % (Manual) Nucleated RBC % Seg Neutrophils # Seg Neutrophils # Man Lymphocytes # (Manual) Monocytes # (Manual) PT INR D-Dimer Heparin Anti-Xa Level POC ABG pH ABG pH POC ABG pCO2 POC ABG pO2 ABG pO2 ABG HCO3 ABG O2 Saturation ABG Base Excess ABG Hemoglobin Oxyhemoglobin Sodium 136 L Potassium 3.5 L Chloride Carbon Dioxide BUN 21 H Creatinine Glucose POC Glucose 108 H Lactic Acid Calcium 11.1 H Ionized Calcium Phosphorus Magnesium Iron TIBC Ferritin Total Bilirubin Direct Bilirubin AST ALT Alkaline Phosphatase Total Creatine Kinase CK-MB (CK-2) Troponin T C-Reactive Protein Serum Total Protein Total Protein Albumin Khcue-8-Rcppkjxuh Lurli-1-Nrxjglpjf PEP Interpretation Triglycerides LDL Cholesterol Direct HDL Cholesterol Free T4 PTH Intact Urine WBC (Auto) Urine Creatinine Salicylates Acetaminophen Crossmatch 05/03/19 05/03/19 05/04/19 05:37 05:37 06:49 WBC 12.7 H 11.1 H RBC 3.01 L 3.07 L Hgb 8.3 L 8.6 L Hct 26.1 L 26.6 L MCV MCHC RDW 16.9 H 17.3 H Plt Count Lymph % (Auto) Gentry % (Auto) 9.0 H Eos % (Auto) 4.9 H Lymph # Gentry # 1.0 H Eos # 0.5 H Seg Neutrophils % Seg Neuts % (Manual) Lymphocytes % (Manual) Monocytes % (Manual) Nucleated RBC % Seg Neutrophils # 7.8 H Seg Neutrophils # Man Lymphocytes # (Manual) Monocytes # (Manual) PT INR D-Dimer Heparin Anti-Xa Level POC ABG pH ABG pH POC ABG pCO2 POC ABG pO2 ABG pO2 ABG HCO3 ABG O2 Saturation ABG Base Excess ABG Hemoglobin Oxyhemoglobin Sodium 135 L Potassium 3.3 L Chloride Carbon Dioxide BUN Creatinine Glucose POC Glucose Lactic Acid Calcium 10.9 H Ionized Calcium Phosphorus Magnesium 1.50 L Iron TIBC Ferritin Total Bilirubin Direct Bilirubin AST ALT Alkaline Phosphatase Total Creatine Kinase CK-MB (CK-2) Troponin T C-Reactive Protein Serum Total Protein Total Protein Albumin Rdhqf-5-Fjkxibaod Ezbch-8-Rjtvdrukr PEP Interpretation Triglycerides LDL Cholesterol Direct HDL Cholesterol Free T4 PTH Intact Urine WBC (Auto) Urine Creatinine Salicylates Acetaminophen Crossmatch 05/04/19 05/04/19 05/04/19 06:49 06:49 11:58 WBC RBC Hgb Hct MCV MCHC RDW Plt Count Lymph % (Auto) Gentry % (Auto) Eos % (Auto) Lymph # Gentry # Eos # Seg Neutrophils % Seg Neuts % (Manual) Lymphocytes % (Manual) Monocytes % (Manual) Nucleated RBC % Seg Neutrophils # Seg Neutrophils # Man Lymphocytes # (Manual) Monocytes # (Manual) PT 15.5 H INR 1.24 H D-Dimer Heparin Anti-Xa Level POC ABG pH ABG pH POC ABG pCO2 POC ABG pO2 ABG pO2 ABG HCO3 ABG O2 Saturation ABG Base Excess ABG Hemoglobin Oxyhemoglobin Sodium Potassium Chloride Carbon Dioxide 19 L BUN Creatinine Glucose POC Glucose 111 H Lactic Acid Calcium 10.7 H Ionized Calcium Phosphorus Magnesium Iron TIBC Ferritin Total Bilirubin Direct Bilirubin AST ALT Alkaline Phosphatase Total Creatine Kinase CK-MB (CK-2) Troponin T C-Reactive Protein Serum Total Protein Total Protein Albumin Xbrwi-4-Xnpngnaqq Tuprt-1-Fshifqnsa PEP Interpretation Triglycerides LDL Cholesterol Direct HDL Cholesterol Free T4 PTH Intact Urine WBC (Auto) Urine Creatinine Salicylates Acetaminophen Crossmatch 05/05/19 05/05/19 06:14 06:14 WBC 11.5 H RBC 3.08 L Hgb 8.5 L Hct 26.5 L MCV MCHC RDW 17.1 H Plt Count Lymph % (Auto) Gentry % (Auto) Eos % (Auto) Lymph # Gentry # Eos # Seg Neutrophils % Seg Neuts % (Manual) Lymphocytes % (Manual) Monocytes % (Manual) Nucleated RBC % Seg Neutrophils # Seg Neutrophils # Man Lymphocytes # (Manual) Monocytes # (Manual) PT INR D-Dimer Heparin Anti-Xa Level POC ABG pH ABG pH POC ABG pCO2 POC ABG pO2 ABG pO2 ABG HCO3 ABG O2 Saturation ABG Base Excess ABG Hemoglobin Oxyhemoglobin Sodium 136 L Potassium Chloride Carbon Dioxide 21 L BUN Creatinine Glucose POC Glucose Lactic Acid Calcium 10.3 H Ionized Calcium Phosphorus Magnesium Iron TIBC Ferritin Total Bilirubin Direct Bilirubin AST ALT Alkaline Phosphatase Total Creatine Kinase CK-MB (CK-2) Troponin T C-Reactive Protein Serum Total Protein Total Protein Albumin Gbwyc-2-Qablbdqrq Nkimq-5-Fkysxrcwz PEP Interpretation Triglycerides LDL Cholesterol Direct HDL Cholesterol Free T4 PTH Intact Urine WBC (Auto) Urine Creatinine Salicylates Acetaminophen Crossmatch Allied health notes reviewed: nursing
[2019-05-06] MEDS: LANSOPRAZOLE 30 MG SOLUTAB FEEDTUBE SCH ×3 (09:34→21:18)
[2019-05-06] MEDS: METOPROLOL TARTRATE 25 MG TAB PO SCH ×3 (09:34→20:23)
[2019-05-06] MEDS: AMIODARONE 200 MG TAB PO SCH (09:34)
--- NOTE | 2019-05-06 10:14 | Progress Note ---
Assessment and Plan The patient will ultimately be considered for [facility] with possible intervention after he is cleared for DAPT by the GI team. Cardiac status is otherwise stable. Continue current management. The patient has been seen in conjunction with Dr. Christian, who agrees with the assessment and plan. - Patient Problems (1) Septic shock Current Visit: Yes Status: Resolved (2) Acute respiratory failure Current Visit: Yes Status: Resolved Qualifiers: Respiratory failure complication: hypoxia Qualified Code(s): J96.01 - Acute respiratory failure with hypoxia (3) Ventricular tachycardia Current Visit: Yes Status: Resolved (4) Metabolic encephalopathy Current Visit: Yes Status: Resolved (5) Elevated LFTs Current Visit: Yes Status: Acute (6) Enteritis Current Visit: Yes Status: Suspected (7) Acute renal failure Current Visit: Yes Status: Acute Qualifiers: Acute renal failure type: with acute tubular necrosis Qualified Code(s): N17.0 - Acute kidney failure with tubular necrosis (8) Aspiration pneumonia Current Visit: Yes Status: Acute Qualifiers: Aspiration pneumonia type: unspecified (9) Hypomagnesemia Current Visit: Yes Status: Resolved (10) Multi-organ system dysfunction Current Visit: Yes Status: Resolved (11) Rhabdomyolysis Current Visit: Yes Status: Acute (12) SVT (supraventricular tachycardia) Current Visit: Yes Status: Resolved (13) Thrombocytopenia Current Visit: Yes Status: Resolved Subjective Date of service: 05/06/19 Principal diagnosis: anemia - DVT rt IJ Interval history: Patient is lying in bed in NAD. He awaits surgical management of left arm wound. Telemetry reviewed - SR in 70s. Objective Last Vital Signs Temp 97.6 F 05/06/19 06:09 Pulse 79 05/06/19 06:09 Resp 18 05/06/19 06:09 BP 142/93 05/06/19 09:34 Pulse Ox 96 05/06/19 06:09 - Physical Examination General: No Apparent Distress HEENT: Positive: PERRL, EOMI, Normocephaly, Mucus Membranes Moist Neck: Positive: neck supple, trachea midline Cardiac: Positive: Reg Rate and Rhythm Lungs: Positive: Normal Exam Neuro: Positive: Grossly Intact, Other Abdomen: Positive: Soft, Active Bowel Sounds. Negative: Tender /Rectal: Other (deferred) Skin: Positive: Clear, Wound (left arm ). Negative: Rash Musculoskeletal: Normal Range of Motion, other (LUE swollen ) Extremities: Present: normal. Absent: edema - Imaging and Cardiology Nuclear stress test: report reviewed (04/2019: Evidence of ischemia in distribution of LAD and circ) Echo: report reviewed ( EF 40-45%, impaired relaxation. ) - EKG Sinus rhythms and dysrhythmias: sinus rhythm - Allied health notes Allied health notes reviewed: nursing
[2019-05-06] MEDS: HYDROcodone/ACETAMINOPHEN 5-325 MG TAB PO PRN ×3 (11:04→23:09)
--- NOTE | 2019-05-06 16:11 | Progress Note ---
Assessment and Plan Patient is a 43-year-old man with history of GERD, obesity and mental illness, who presented to [facility] ED on 03/16/2019 with altered mental status. He is visiting from [place] and was brought in by his friend. As per records per family he has been homeless [address]. When he came to the ER, he was unable to speak or follow commands, in the ER he was found to have SVT with heart rate in the 250s. The patient was shocked and medicated. Also was confused, and had trouble protecting his airway; therefore, he was then intubated. He has had a prolonged hospital course. During this hospital course, he was found to have sepsis with septic shock, acute resp failure, rhabdomyolysis, RUBEN, and multisystem organ failure, toxic metabolic encephalopathy. He was started on hemodialysis-still getting dialysis. patient is much improved. Still has recurrent fever, followed by ID Physician. Patient now on Azactam, Zyvox. He passed his swallow test started on mechanical soft diet today 04/21/19. Acute hypoxic respiratory failure. Was intubated, now extubated. Now on Room air. Continue BiPAP as clinically indicated. Atrial fibrillation. Continue Metoprolol. Cardiology following. No systemic AC regarding AFib in setting of anemia, thrombocytopenia, GI bleed. Acute blood loss anemia. Patient with GI bleed secondary to peptic ulcer disease. EGD completed per GI. Continue PRBCs as needed. GI bleed/peptic ulcer disease. Continue PPI. Transfuse PRBCs as needed. Sepsis/septic shock. Continue antibiotics per ID. Now on Zyvox and Azactam Fever, recurrent ID following Ischemic hepatitis/shock liver. Elevated LFTs improved. Viral hepatitis panel negative. Acute kidney injury. Patient still on hemodialysis. Patient was started on hemodialysis on 03/18/19 due to worsening metabolic acidosis and hyperkalemia. Baseline renal function is unknown. CT abdomen was negative for obstructive nephropathy. Avoid nephrotoxic agents. Continue hemodialysis per nephrology. Toxic metabolic encephalopathy. Brain MRI showed no acute intracranial abnormality, mild nonspecific chronic white matter changes, fluid throughout the sinuses and mastoid air cells. Swelling both upper ext L>R Doppler US : no DVT LUE Hypokalemia. Correted Replete potassium as needed. Hypernatremia. Bumex was stopped. Follow-up BMP Nephrology following Now resolved Na 141 today Thrombocytopenia. Etiology likely secondary to sepsis. Resolved. Rhabdomyolysis. CK normalized. Full code status Subjective Date of service: 05/06/19 Principal diagnosis: anemia - DVT rt IJ Interval history: Pt seen and examine. No new complaint, Lying quietly in bed.Still Leukocytic Objective - Exam Narrative Exam: Constitutional: Well-nourished well-developed. In no distress Head: Normocephalic atraumatic Eyes: Pupils are equal round and reactive to light Nose: No enlarged turbinates, no septal deviation. Mouth: Moist mucous membranes. Neck: Supple no thyromegaly. No bruit. No JVD Heart: Irregularly irregular. No rubs murmurs or gallop Lungs: Clear to auscultation bilaterally. no rales or rhonchi Abdomen: Soft, nontender. Bowel sound are present. Extremities: No edema, no cyanosis, no clubbing. Neuro: Alert oriented Oriented x3. No focal sensory or motor deficit. Skin: No rashes or hyperpigmented spots Musculoskeletal system: No joint pain or swelling Hematological: No petechia or subcutanous hemorrhages. Immunological: No multiple septic spots on the skin Lymphatic: No generalized lymphadenopathy Psychiatry: mildy confusd. Euthymic. Calm. - Constitutional Vitals: Vital Signs - 12hr 05/06/19 05/06/19 05/06/19 06:09 09:32 09:34 Temperature 97.6 F Pulse Rate 79 Respiratory 18 Rate Blood Pressure 136/85 142/93 142/93 O2 Sat by Pulse 96 Oximetry 05/06/19 05/06/19 11:31 13:40 Temperature 97.5 F L Pulse Rate 83 Respiratory 20 Rate Blood Pressure 139/89 139/89 O2 Sat by Pulse 97 Oximetry - Labs CBC & Chem 7: 05/05/19 06:14 05/05/19 06:14
--- NOTE | 2019-05-06 16:25 | Gastroenterology Progress Note ---
Assessment and Plan 1.GI bleed during this admission. - patient with prolonged hospital stay initially for shock and complicated with cardiac arrest and GI bleeding. - s/p EGD on 03/28/2019 with blood in the stomach but incomplete visualization and unable to find a clear source of bleeding. - s/p repeat EGD on 03/30/2019 showing gastric body ulcer 1 cm with overlying blood clot treated with epi and gold prob. - No overt signs of recurrent active bleeding and H/H stable. - now planned for LHC with possible cardiac stent placement for abnormal stress test. Rec - cont with PPI. currently on lansoprazole. can switch to pill form of pantoprazole. - recommend repeat EGD to assess gastric ulcer to better bleeding risk assessment with DAPT. discussed with patient. Patient would like to do it either Tuesday or Tuesday as he is planned wound surgery tomorrow. - will plan for EGD on Tuesday. would appreciate cardiac risk assessment for sedation. Subjective Date of service: 05/06/19 Principal diagnosis: anemia - DVT rt IJ Interval history: GI called back for assessment for bleeding risk given planned LHC and possible stent placement dual antiplatelet therapy for 1 year. Patient denies any abdominal pain, nausea/vomiting, blood in the stool, or m anthony. Objective - Constitutional Vitals: Temp Pulse Resp BP Pulse Ox 97.5 F L 83 20 139/89 97 05/06/19 11:31 05/06/19 11:31 05/06/19 11:31 05/06/19 13:40 05/06/19 11:31 General appearance: no acute distress - EENT Eyes: EOM intact ENT: hearing intact - Neck Neck: supple - Respiratory Respiratory effort: normal - Cardiovascular Rhythm: regular Heart Sounds: Present: S1 & S2 - Gastrointestinal General gastrointestinal: Present: soft, non-tender, non-distended - Neurologic Neurological: alert and oriented x3 - Labs CBC & Chem 7: 05/05/19 06:14 05/05/19 06:14 Labs: Laboratory Results - last 24 hr 05/01/19 05/06/19 06:52 11:38 POC Glucose 88 Immunofix Electrophor see below
--- NOTE | 2019-05-06 17:07 | Progress Note ---
Assessment and Plan Severe sepsis with shock. Right axilla abscess versus localized pannus/fatty collection. Acute hypoxemic respiratory failure, on mechanical ventilator support. Likely aspiration pneumonia, bilateral. Morbid obesity. Rhabdomyolysis. Acute kidney injury. Leukocytosis. Morbid obesity. Metabolic acidosis. Lactic acidosis. Hypomagnesemia. Elevated serum transaminases/possible shock liver. Acute encephalopathy, toxic metabolic versus anoxic - continue prn BIPAP for increased work of breathing - continue cardiac work-up - will need outpatient PSG - continue aggressive PT/OT as tolerated - continue ST evaluation and advance diet as tolerated - continue prn albuterol treatments - prn oxygen to keep O2 sats > 90% - azotemia per nephrology (non-oliguric) - prn supportive blood transfusions to keep serum Hb > 7.0 - Monitor hemodynamics closely - Transfuse PRBC's to keep HgB > 7g/dL - continue mobility protocols and off loading as tolerated for pressure ulcer prophylaxis - continue to avoid nephrotoxins, adjust all medications for GFR and CRCL - continue GI & VTE prophylaxis with - accuchecks with glycemic control per SSI for target BG of 140-180 mg/dl acutely - continue other care per attending / other consultants ... re-evaluate in am & prn Subjective Date of service: 05/06/19 Principal diagnosis: Septic Shock; Ac. hypoxemic resp failure; Renzo. PNA; Rhabdomyolysis; RUBEN Interval history: Patient is seen today for: Severe sepsis with shock; Acute hypoxemic respiratory failure; Aspiration pneumonia; Morbid obesity; Rhabdomyolysis; Acute kidney injury; Morbid obesity; Elevated serum transaminases/possible shock liver; Acute encephalopathy (Toxic/Met) Seen and examined at bedside; 24hour events reviewed; nursing and respiratory care staff consulted; no adverse overnight events reported to me; resting peacefully in bed; ACS work-up ongoing; denies acute chst pains or palpitations; No N/V/F/C Objective Vital Signs - 12hr 05/06/19 05/06/19 05/06/19 06:09 09:32 09:34 Temperature 97.6 F Pulse Rate 79 Respiratory 18 Rate Blood Pressure 136/85 142/93 142/93 O2 Sat by Pulse 96 Oximetry 05/06/19 05/06/19 11:31 13:40 Temperature 97.5 F L Pulse Rate 83 Respiratory 20 Rate Blood Pressure 139/89 139/89 O2 Sat by Pulse 97 Oximetry Constitutional: no acute distress, other (middle aged morbidly obese CM, normocephalic with mildly incresed respiratory effort at rest) Eyes: non-icteric ENT: oropharynx moist, other (extubated) Neck: supple, no lymphadenopathy, no JVD, other (large neck circumference) Effort: mildly labored Ascultation: Bilateral: diminished breath sounds, rhonchi (scant) Percussion: Bilateral: not dull Cardiovascular: regular rate and rhythm, other ( S1,S2) Gastrointestinal: normoactive bowel sounds, soft, non-tender, non-distended, other (obese) Integumentary: normal Extremities: no cyanosis, pink and warm, pulses normal, no ischemia or petechiae Neurologic: normal mental status, non-focal exam (grossly), pupils equal and round, CN II-XII normal, other (very weak) Psychiatric: mood appropriate, affect normal CBC and BMP: 05/13/19 08:32 05/13/19 08:32 ABG, PT/INR, D-dimer: ABG POC ABG pH 7.401 (7.35-7.45) 04/07/19 12:57 ABG pH 7.388 pH Units (7.350-7.450) 04/06/19 05:20 POC ABG pCO2 41.5 (35-45) 04/07/19 12:57 ABG pCO2 38.5 mm Hg 04/06/19 05:20 POC ABG pO2 107 (80-105) H 04/07/19 12:57 ABG pO2 104.0 mm Hg (80.0-90.0) H 04/06/19 05:20 POC ABG HCO3 25.7 (22-26 mml/L) 04/07/19 12:57 POC ABG Total CO2 27 (23-27mmol/L) 04/07/19 12:57 POC ABG O2 Sat 98 04/07/19 12:57 ABG O2 Saturation 97.8 % (95.0-99.0) 04/06/19 05:20 PT/INR, D-dimer PT 15.5 Sec. (12.2-14.9) H 05/04/19 06:49 INR 1.24 (0.87-1.13) H 05/04/19 06:49 D-Dimer 4845.98 ng/mlDDU (0-234) H 03/28/19 12:00 Abnormal lab findings: Abnormal Labs 03/16/19 03/16/19 03/16/19 15:32 16:03 16:05 WBC 27.0 H RBC 5.55 H Hgb 15.7 H Hct 47.1 H MCV MCHC RDW Plt Count 75 L Lymph % (Auto) Andrew % (Auto) Eos % (Auto) Lymph # Andrew # Eos # Seg Neutrophils % Seg Neuts % (Manual) 85.0 H Lymphocytes % (Manual) 2.0 L Monocytes % (Manual) Nucleated RBC % Seg Neutrophils # Seg Neutrophils # Man 23.0 H Lymphocytes # (Manual) 0.5 L Monocytes # (Manual) PT INR D-Dimer Heparin Anti-Xa Level POC ABG pH ABG pH POC ABG pCO2 POC ABG pO2 ABG pO2 ABG HCO3 ABG O2 Saturation ABG Base Excess ABG Hemoglobin Oxyhemoglobin Sodium 127 L Potassium Chloride 87.8 L Carbon Dioxide 17 L BUN 49 H Creatinine 5.8 H Glucose 150 H POC Glucose 118 H Lactic Acid Calcium 6.6 L Ionized Calcium Phosphorus Magnesium 1.10 L Iron TIBC Ferritin Total Bilirubin Direct Bilirubin AST ALT Alkaline Phosphatase Total Creatine Kinase 24146 H CK-MB (CK-2) Troponin T C-Reactive Protein Serum Total Protein Total Protein Albumin Jjrll-2-Ydbyzronq Dtmyn-0-Omjrgtexh PEP Interpretation Triglycerides LDL Cholesterol Direct HDL Cholesterol Free T4 PTH Intact Urine WBC (Auto) Urine Creatinine Salicylates Acetaminophen Crossmatch 03/16/19 03/16/19 03/16/19 16:59 17:05 17:05 WBC RBC Hgb Hct MCV MCHC RDW Plt Count Lymph % (Auto) Andrew % (Auto) Eos % (Auto) Lymph # Andrew # Eos # Seg Neutrophils % Seg Neuts % (Manual) Lymphocytes % (Manual) Monocytes % (Manual) Nucleated RBC % Seg Neutrophils # Seg Neutrophils # Man Lymphocytes # (Manual) Monocytes # (Manual) PT INR D-Dimer Heparin Anti-Xa Level POC ABG pH 7.297 L ABG pH POC ABG pCO2 33.0 L POC ABG pO2 ABG pO2 ABG HCO3 ABG O2 Saturation ABG Base Excess ABG Hemoglobin Oxyhemoglobin Sodium Potassium Chloride Carbon Dioxide BUN Creatinine Glucose POC Glucose Lactic Acid Calcium Ionized Calcium Phosphorus Magnesium Iron TIBC Ferritin Total Bilirubin Direct Bilirubin AST ALT Alkaline Phosphatase Total Creatine Kinase 72062 H CK-MB (CK-2) 83.1 H Troponin T C-Reactive Protein Serum Total Protein Total Protein Albumin Jsrjv-9-Xntynhnsr Pamon-4-Xfukwoqew PEP Interpretation Triglycerides LDL Cholesterol Direct HDL Cholesterol Free T4 0.72 L PTH Intact Urine WBC (Auto) Urine Creatinine Salicylates Acetaminophen Crossmatch 03/16/19 03/16/19 03/16/19 17:05 17:05 17:05 WBC RBC Hgb Hct MCV MCHC RDW Plt Count Lymph % (Auto) Andrew % (Auto) Eos % (Auto) Lymph # Andrew # Eos # Seg Neutrophils % Seg Neuts % (Manual) Lymphocytes % (Manual) Monocytes % (Manual) Nucleated RBC % Seg Neutrophils # Seg Neutrophils # Man Lymphocytes # (Manual) Monocytes # (Manual) PT INR D-Dimer Heparin Anti-Xa Level POC ABG pH ABG pH POC ABG pCO2 POC ABG pO2 ABG pO2 ABG HCO3 ABG O2 Saturation ABG Base Excess ABG Hemoglobin Oxyhemoglobin Sodium Potassium Chloride Carbon Dioxide BUN Creatinine Glucose POC Glucose Lactic Acid 5.10 H* Calcium Ionized Calcium Phosphorus Magnesium Iron TIBC Ferritin Total Bilirubin Direct Bilirubin AST ALT Alkaline Phosphatase Total Creatine Kinase CK-MB (CK-2) Troponin T C-Reactive Protein Serum Total Protein Total Protein Albumin Xwips-4-Cgykorspd Wyydq-0-Pjbbklpdz PEP Interpretation Triglycerides LDL Cholesterol Direct HDL Cholesterol Free T4 PTH Intact Urine WBC (Auto) Urine Creatinine Salicylates < 0.3 L Acetaminophen < 5.0 L Crossmatch 03/16/19 03/16/19 03/16/19 17:05 17:05 20:35 WBC RBC Hgb Hct MCV MCHC RDW Plt Count Lymph % (Auto) Andrew % (Auto) Eos % (Auto) Lymph # Andrew # Eos # Seg Neutrophils % Seg Neuts % (Manual) Lymphocytes % (Manual) Monocytes % (Manual) Nucleated RBC % Seg Neutrophils # Seg Neutrophils # Man Lymphocytes # (Manual) Monocytes # (Manual) PT 15.9 H INR 1.30 H D-Dimer Heparin Anti-Xa Level POC ABG pH ABG pH POC ABG pCO2 POC ABG pO2 ABG pO2 ABG HCO3 ABG O2 Saturation ABG Base Excess ABG Hemoglobin Oxyhemoglobin Sodium Potassium Chloride Carbon Dioxide BUN Creatinine Glucose POC Glucose Lactic Acid 3.30 H* Calcium Ionized Calcium Phosphorus Magnesium Iron TIBC Ferritin Total Bilirubin 6.20 H Direct Bilirubin 5.9 H AST 800 H ALT 120 H Alkaline Phosphatase Total Creatine Kinase CK-MB (CK-2) Troponin T C-Reactive Protein Serum Total Protein Total Protein 4.4 L Albumin 2.4 L Gntxd-3-Rcbntnbow Rkypq-9-Maijigigf PEP Interpretation Triglycerides LDL Cholesterol Direct HDL Cholesterol Free T4 PTH Intact Urine WBC (Auto) Urine Creatinine Salicylates Acetaminophen Crossmatch 03/16/19 03/16/19 03/16/19 21:45 22:32 Unknown WBC RBC Hgb Hct MCV MCHC RDW Plt Count Lymph % (Auto) Andrew % (Auto) Eos % (Auto) Lymph # Andrew # Eos # Seg Neutrophils % Seg Neuts % (Manual) Lymphocytes % (Manual) Monocytes % (Manual) Nucleated RBC % Seg Neutrophils # Seg Neutrophils # Man Lymphocytes # (Manual) Monocytes # (Manual) PT INR D-Dimer Heparin Anti-Xa Level POC ABG pH ABG pH POC ABG pCO2 POC ABG pO2 ABG pO2 ABG HCO3 ABG O2 Saturation ABG Base Excess ABG Hemoglobin Oxyhemoglobin Sodium Potassium Chloride Carbon Dioxide BUN Creatinine Glucose POC Glucose Lactic Acid 3.30 H* 3.00 H* Calcium Ionized Calcium Phosphorus Magnesium Iron TIBC Ferritin Total Bilirubin Direct Bilirubin AST ALT Alkaline Phosphatase Total Creatine Kinase CK-MB (CK-2) Troponin T 0.047 H D C-Reactive Protein Serum Total Protein Total Protein Albumin Fmnui-5-Hqluclqob Abjlu-0-Zomfbfxlb PEP Interpretation Triglycerides 395 H LDL Cholesterol Direct 10 L HDL Cholesterol 7 L Free T4 PTH Intact Urine WBC (Auto) Urine Creatinine Salicylates Acetaminophen Crossmatch 03/17/19 03/17/19 03/17/19 03:45 03:45 03:45 WBC RBC Hgb Hct MCV MCHC RDW Plt Count Lymph % (Auto) Andrew % (Auto) Eos % (Auto) Lymph # Andrew # Eos # Seg Neutrophils % Seg Neuts % (Manual) Lymphocytes % (Manual) Monocytes % (Manual) Nucleated RBC % Seg Neutrophils # Seg Neutrophils # Man Lymphocytes # (Manual) Monocytes # (Manual) PT INR D-Dimer Heparin Anti-Xa Level POC ABG pH ABG pH POC ABG pCO2 POC ABG pO2 ABG pO2 ABG HCO3 ABG O2 Saturation ABG Base Excess ABG Hemoglobin Oxyhemoglobin Sodium 131 L Potassium Chloride 88.9 L Carbon Dioxide BUN 53 H Creatinine 7.1 H Glucose POC Glucose Lactic Acid 4.10 H* Calcium 5.4 L* D Ionized Calcium Phosphorus 7.30 H Magnesium 1.60 L Iron TIBC Ferritin Total Bilirubin 5.90 H Direct Bilirubin AST 801 H ALT 109 H Alkaline Phosphatase Total Creatine Kinase 85629 H 84605 H CK-MB (CK-2) 41.5 H Troponin T 0.054 H C-Reactive Protein Serum Total Protein Total Protein 4.5 L Albumin 2.0 L Inwcy-2-Kbcmjpxxn Hptnv-3-Yevnidbri PEP Interpretation Triglycerides LDL Cholesterol Direct HDL Cholesterol Free T4 PTH Intact Urine WBC (Auto) Urine Creatinine Salicylates Acetaminophen Crossmatch 03/17/19 03/17/19 03/17/19 05:47 07:16 07:16 WBC RBC Hgb Hct MCV MCHC RDW Plt Count Lymph % (Auto) Andrew % (Auto) Eos % (Auto) Lymph # Andrew # Eos # Seg Neutrophils % Seg Neuts % (Manual) Lymphocytes % (Manual) Monocytes % (Manual) Nucleated RBC % Seg Neutrophils # Seg Neutrophils # Man Lymphocytes # (Manual) Monocytes # (Manual) PT INR D-Dimer Heparin Anti-Xa Level POC ABG pH 7.193 L ABG pH POC ABG pCO2 45.2 H POC ABG pO2 65 L ABG pO2 ABG HCO3 ABG O2 Saturation ABG Base Excess ABG Hemoglobin Oxyhemoglobin Sodium Potassium Chloride Carbon Dioxide BUN Creatinine Glucose POC Glucose Lactic Acid 5.50 H* Calcium Ionized Calcium Phosphorus Magnesium Iron TIBC Ferritin Total Bilirubin Direct Bilirubin AST ALT Alkaline Phosphatase Total Creatine Kinase 27649 H CK-MB (CK-2) 54.3 H Troponin T 0.058 H C-Reactive Protein Serum Total Protein Total Protein Albumin Jquam-8-Zsdxudijr Sjhjo-7-Awwilpuwa PEP Interpretation Triglycerides LDL Cholesterol Direct HDL Cholesterol Free T4 PTH Intact Urine WBC (Auto) Urine Creatinine Salicylates Acetaminophen Crossmatch 03/17/19 03/17/19 03/17/19 11:52 12:51 13:01 WBC RBC Hgb Hct MCV MCHC RDW Plt Count Lymph % (Auto) Andrew % (Auto) Eos % (Auto) Lymph # Andrew # Eos # Seg Neutrophils % Seg Neuts % (Manual) Lymphocytes % (Manual) Monocytes % (Manual) Nucleated RBC % Seg Neutrophils # Seg Neutrophils # Man Lymphocytes # (Manual) Monocytes # (Manual) PT INR D-Dimer Heparin Anti-Xa Level POC ABG pH 7.154 L ABG pH POC ABG pCO2 34.3 L POC ABG pO2 73 L ABG pO2 ABG HCO3 ABG O2 Saturation ABG Base Excess ABG Hemoglobin Oxyhemoglobin Sodium Potassium Chloride Carbon Dioxide BUN Creatinine Glucose POC Glucose 60 L Lactic Acid 8.20 H* Calcium Ionized Calcium Phosphorus Magnesium Iron TIBC Ferritin Total Bilirubin Direct Bilirubin AST ALT Alkaline Phosphatase Total Creatine Kinase CK-MB (CK-2) Troponin T C-Reactive Protein Serum Total Protein Total Protein Albumin Inuib-2-Lmlvvpwqw Xnlnu-1-Jiovpeuzn PEP Interpretation Triglycerides LDL Cholesterol Direct HDL Cholesterol Free T4 PTH Intact Urine WBC (Auto) Urine Creatinine Salicylates Acetaminophen Crossmatch 03/17/19 03/17/19 03/17/19 14:37 14:37 14:37 WBC 29.3 H RBC Hgb Hct MCV MCHC RDW 15.8 H Plt Count 45 L Lymph % (Auto) Andrew % (Auto) Eos % (Auto) Lymph # Andrew # Eos # Seg Neutrophils % Seg Neuts % (Manual) 81.0 H Lymphocytes % (Manual) 1.0 L Monocytes % (Manual) 15.0 H Nucleated RBC % Seg Neutrophils # Seg Neutrophils # Man 23.7 H Lymphocytes # (Manual) 0.3 L Monocytes # (Manual) 4.4 H PT INR D-Dimer Heparin Anti-Xa Level POC ABG pH ABG pH POC ABG pCO2 POC ABG pO2 ABG pO2 ABG HCO3 ABG O2 Saturation ABG Base Excess ABG Hemoglobin Oxyhemoglobin Sodium Potassium Chloride Carbon Dioxide BUN Creatinine Glucose POC Glucose Lactic Acid 4.90 H* Calcium Ionized Calcium Phosphorus Magnesium Iron TIBC Ferritin Total Bilirubin Direct Bilirubin AST ALT Alkaline Phosphatase Total Creatine Kinase CK-MB (CK-2) Troponin T C-Reactive Protein 24.90 H Serum Total Protein Total Protein Albumin Mejqr-3-Uhhcsbphp Ifebw-0-Kafsuaqqu PEP Interpretation Triglycerides LDL Cholesterol Direct HDL Cholesterol Free T4 PTH Intact Urine WBC (Auto) Urine Creatinine Salicylates Acetaminophen Crossmatch 03/17/19 03/17/19 03/17/19 16:05 16:05 17:02 WBC RBC Hgb Hct MCV MCHC RDW Plt Count Lymph % (Auto) Andrew % (Auto) Eos % (Auto) Lymph # Andrew # Eos # Seg Neutrophils % Seg Neuts % (Manual) Lymphocytes % (Manual) Monocytes % (Manual) Nucleated RBC % Seg Neutrophils # Seg Neutrophils # Man Lymphocytes # (Manual) Monocytes # (Manual) PT INR D-Dimer Heparin Anti-Xa Level POC ABG pH 7.183 L ABG pH POC ABG pCO2 POC ABG pO2 65 L ABG pO2 ABG HCO3 ABG O2 Saturation ABG Base Excess ABG Hemoglobin Oxyhemoglobin Sodium Potassium Chloride Carbon Dioxide BUN Creatinine Glucose POC Glucose Lactic Acid Calcium Ionized Calcium Phosphorus Magnesium Iron TIBC Ferritin Total Bilirubin Direct Bilirubin AST ALT Alkaline Phosphatase Total Creatine Kinase CK-MB (CK-2) Troponin T C-Reactive Protein Serum Total Protein Total Protein Albumin Gjhnb-8-Liwbbdgqe Llbkf-8-Oazvsivhv PEP Interpretation Triglycerides LDL Cholesterol Direct HDL Cholesterol Free T4 PTH Intact Urine WBC (Auto) 30.0 H Urine Creatinine 106.6 H Salicylates Acetaminophen Crossmatch 03/18/19 03/18/19 03/18/19 05:12 05:16 05:53 WBC RBC Hgb Hct MCV MCHC RDW Plt Count Lymph % (Auto) Andrew % (Auto) Eos % (Auto) Lymph # Andrew # Eos # Seg Neutrophils % Seg Neuts % (Manual) Lymphocytes % (Manual) Monocytes % (Manual) Nucleated RBC % Seg Neutrophils # Seg Neutrophils # Man Lymphocytes # (Manual) Monocytes # (Manual) PT INR D-Dimer Heparin Anti-Xa Level POC ABG pH 7.257 L ABG pH POC ABG pCO2 31.6 L POC ABG pO2 69 L ABG pO2 ABG HCO3 ABG O2 Saturation ABG Base Excess ABG Hemoglobin Oxyhemoglobin Sodium Potassium Chloride Carbon Dioxide BUN Creatinine Glucose POC Glucose 141 H Lactic Acid 5.00 H* Calcium Ionized Calcium Phosphorus Magnesium Iron TIBC Ferritin Total Bilirubin Direct Bilirubin AST ALT Alkaline Phosphatase Total Creatine Kinase CK-MB (CK-2) Troponin T C-Reactive Protein Serum Total Protein Total Protein Albumin Vebfj-1-Jtqssbwga Rtrtb-5-Jrxmlncob PEP Interpretation Triglycerides LDL Cholesterol Direct HDL Cholesterol Free T4 PTH Intact Urine WBC (Auto) Urine Creatinine Salicylates Acetaminophen Crossmatch 03/18/19 03/18/19 03/18/19 06:57 08:40 08:40 WBC 31.7 H RBC Hgb Hct MCV MCHC RDW 15.5 H Plt Count 35 L Lymph % (Auto) Andrew % (Auto) Eos % (Auto) Lymph # Andrew # Eos # Seg Neutrophils % Seg Neuts % (Manual) Lymphocytes % (Manual) Monocytes % (Manual) Nucleated RBC % Seg Neutrophils # Seg Neutrophils # Man Lymphocytes # (Manual) Monocytes # (Manual) PT INR D-Dimer Heparin Anti-Xa Level POC ABG pH ABG pH POC ABG pCO2 POC ABG pO2 ABG pO2 ABG HCO3 ABG O2 Saturation ABG Base Excess ABG Hemoglobin Oxyhemoglobin Sodium 132 L Potassium 5.5 H D Chloride 88.5 L Carbon Dioxide 18 L BUN 71 H Creatinine 8.1 H Glucose 205 H POC Glucose Lactic Acid 5.00 H* Calcium 4.1 L* D Ionized Calcium Phosphorus Magnesium 2.40 H Iron TIBC Ferritin Total Bilirubin 7.50 H Direct Bilirubin AST 1088 H ALT 159 H Alkaline Phosphatase 190 H Total Creatine Kinase 252423 H CK-MB (CK-2) Troponin T C-Reactive Protein Serum Total Protein Total Protein 4.7 L Albumin 1.8 L Akiif-9-Jhmxocmrl Nqxgy-7-Wpyvfaqgm PEP Interpretation Triglycerides LDL Cholesterol Direct HDL Cholesterol Free T4 PTH Intact Urine WBC (Auto) Urine Creatinine Salicylates Acetaminophen Crossmatch 03/18/19 03/18/19 03/18/19 12:33 12:50 13:19 WBC RBC Hgb Hct MCV MCHC RDW Plt Count Lymph % (Auto) Andrew % (Auto) Eos % (Auto) Lymph # Andrew # Eos # Seg Neutrophils % Seg Neuts % (Manual) Lymphocytes % (Manual) Monocytes % (Manual) Nucleated RBC % Seg Neutrophils # Seg Neutrophils # Man Lymphocytes # (Manual) Monocytes # (Manual) PT INR D-Dimer Heparin Anti-Xa Level POC ABG pH 7.282 L ABG pH POC ABG pCO2 POC ABG pO2 67 L ABG pO2 ABG HCO3 ABG O2 Saturation ABG Base Excess ABG Hemoglobin Oxyhemoglobin Sodium Potassium Chloride Carbon Dioxide BUN Creatinine Glucose POC Glucose 129 H Lactic Acid 3.30 H* Calcium Ionized Calcium Phosphorus Magnesium Iron TIBC Ferritin Total Bilirubin Direct Bilirubin AST ALT Alkaline Phosphatase Total Creatine Kinase CK-MB (CK-2) Troponin T C-Reactive Protein Serum Total Protein Total Protein Albumin Qsive-5-Fvcvdvlnf Qstwa-3-Hxozpfwkr PEP Interpretation Triglycerides LDL Cholesterol Direct HDL Cholesterol Free T4 PTH Intact Urine WBC (Auto) Urine Creatinine Salicylates Acetaminophen Crossmatch 03/18/19 03/18/19 03/18/19 13:19 16:50 18:11 WBC RBC Hgb Hct MCV MCHC RDW Plt Count Lymph % (Auto) Andrew % (Auto) Eos % (Auto) Lymph # Andrew # Eos # Seg Neutrophils % Seg Neuts % (Manual) Lymphocytes % (Manual) Monocytes % (Manual) Nucleated RBC % Seg Neutrophils # Seg Neutrophils # Man Lymphocytes # (Manual) Monocytes # (Manual) PT INR D-Dimer Heparin Anti-Xa Level POC ABG pH ABG pH POC ABG pCO2 POC ABG pO2 59 L ABG pO2 ABG HCO3 ABG O2 Saturation ABG Base Excess ABG Hemoglobin Oxyhemoglobin Sodium Potassium Chloride Carbon Dioxide BUN Creatinine Glucose POC Glucose 151 H Lactic Acid Calcium 4.2 L* Ionized Calcium Phosphorus Magnesium Iron TIBC Ferritin Total Bilirubin Direct Bilirubin AST ALT Alkaline Phosphatase Total Creatine Kinase 854580 H CK-MB (CK-2) Troponin T C-Reactive Protein Serum Total Protein Total Protein Albumin Mjclu-5-Cwzajcklz Zrmvg-2-Niltxycdp PEP Interpretation Triglycerides LDL Cholesterol Direct HDL Cholesterol Free T4 PTH Intact Urine WBC (Auto) Urine Creatinine Salicylates Acetaminophen Crossmatch 03/18/19 03/18/19 03/19/19 18:20 23:39 01:42 WBC RBC Hgb Hct MCV MCHC RDW Plt Count Lymph % (Auto) Andrew % (Auto) Eos % (Auto) Lymph # Andrew # Eos # Seg Neutrophils % Seg Neuts % (Manual) Lymphocytes % (Manual) Monocytes % (Manual) Nucleated RBC % Seg Neutrophils # Seg Neutrophils # Man Lymphocytes # (Manual) Monocytes # (Manual) PT INR D-Dimer Heparin Anti-Xa Level POC ABG pH 7.345 L ABG pH 7.285 L POC ABG pCO2 POC ABG pO2 59 L ABG pO2 44.0 L ABG HCO3 ABG O2 Saturation 70.9 L ABG Base Excess -5.7 L ABG Hemoglobin 11.9 L Oxyhemoglobin 69.6 L Sodium Potassium Chloride Carbon Dioxide BUN Creatinine Glucose POC Glucose 152 H Lactic Acid Calcium Ionized Calcium Phosphorus Magnesium Iron TIBC Ferritin Total Bilirubin Direct Bilirubin AST ALT Alkaline Phosphatase Total Creatine Kinase CK-MB (CK-2) Troponin T C-Reactive Protein Serum Total Protein Total Protein Albumin Tieql-4-Xynfcnzqd Totyf-2-Dxaslsadp PEP Interpretation Triglycerides LDL Cholesterol Direct HDL Cholesterol Free T4 PTH Intact Urine WBC (Auto) Urine Creatinine Salicylates Acetaminophen Crossmatch 03/19/19 03/19/19 03/19/19 04:00 04:00 05:35 WBC 36.5 H RBC Hgb Hct MCV MCHC RDW 15.8 H Plt Count 35 L Lymph % (Auto) Andrew % (Auto) Eos % (Auto) Lymph # Andrew # Eos # Seg Neutrophils % Seg Neuts % (Manual) Lymphocytes % (Manual) Monocytes % (Manual) Nucleated RBC % Seg Neutrophils # Seg Neutrophils # Man Lymphocytes # (Manual) Monocytes # (Manual) PT INR D-Dimer Heparin Anti-Xa Level POC ABG pH ABG pH 7.265 L POC ABG pCO2 POC ABG pO2 ABG pO2 35.4 L* ABG HCO3 ABG O2 Saturation 54.4 L ABG Base Excess -6.7 L ABG Hemoglobin 12.9 L Oxyhemoglobin 53.4 L Sodium 132 L Potassium 5.7 H Chloride 89.8 L Carbon Dioxide 19 L BUN 62 H Creatinine 6.4 H Glucose 151 H POC Glucose Lactic Acid Calcium 5.2 L* D Ionized Calcium Phosphorus Magnesium Iron TIBC Ferritin Total Bilirubin 7.80 H Direct Bilirubin AST 682 H ALT 130 H Alkaline Phosphatase 167 H Total Creatine Kinase CK-MB (CK-2) Troponin T C-Reactive Protein Serum Total Protein Total Protein 4.8 L Albumin 2.3 L Dfcop-8-Mxeqterpp Pixxs-1-Wcdykxwcr PEP Interpretation Triglycerides LDL Cholesterol Direct HDL Cholesterol Free T4 PTH Intact Urine WBC (Auto) Urine Creatinine Salicylates Acetaminophen Crossmatch 03/19/19 03/19/19 03/19/19 05:49 09:16 09:50 WBC RBC Hgb Hct MCV MCHC RDW Plt Count Lymph % (Auto) Andrew % (Auto) Eos % (Auto) Lymph # Andrew # Eos # Seg Neutrophils % Seg Neuts % (Manual) Lymphocytes % (Manual) Monocytes % (Manual) Nucleated RBC % Seg Neutrophils # Seg Neutrophils # Man Lymphocytes # (Manual) Monocytes # (Manual) PT INR D-Dimer Heparin Anti-Xa Level POC ABG pH 7.222 L ABG pH POC ABG pCO2 56.6 H POC ABG pO2 ABG pO2 ABG HCO3 ABG O2 Saturation ABG Base Excess ABG Hemoglobin Oxyhemoglobin Sodium Potassium Chloride Carbon Dioxide BUN Creatinine Glucose POC Glucose 154 H Lactic Acid 2.70 H* Calcium Ionized Calcium Phosphorus Magnesium Iron TIBC Ferritin Total Bilirubin Direct Bilirubin AST ALT Alkaline Phosphatase Total Creatine Kinase CK-MB (CK-2) Troponin T C-Reactive Protein Serum Total Protein Total Protein Albumin Odghh-0-Iubjoxuqd Stkgu-7-Wbwtcqzva PEP Interpretation Triglycerides LDL Cholesterol Direct HDL Cholesterol Free T4 PTH Intact Urine WBC (Auto) Urine Creatinine Salicylates Acetaminophen Crossmatch 03/19/19 03/19/19 03/19/19 09:50 11:28 17:58 WBC RBC Hgb Hct MCV MCHC RDW Plt Count Lymph % (Auto) Andrew % (Auto) Eos % (Auto) Lymph # Andrew # Eos # Seg Neutrophils % Seg Neuts % (Manual) Lymphocytes % (Manual) Monocytes % (Manual) Nucleated RBC % Seg Neutrophils # Seg Neutrophils # Man Lymphocytes # (Manual) Monocytes # (Manual) PT INR D-Dimer Heparin Anti-Xa Level POC ABG pH 7.250 L ABG pH POC ABG pCO2 52.6 H POC ABG pO2 ABG pO2 ABG HCO3 ABG O2 Saturation ABG Base Excess ABG Hemoglobin Oxyhemoglobin Sodium Potassium Chloride Carbon Dioxide BUN Creatinine Glucose POC Glucose 160 H Lactic Acid Calcium Ionized Calcium Phosphorus Magnesium Iron TIBC Ferritin Total Bilirubin Direct Bilirubin AST ALT Alkaline Phosphatase Total Creatine Kinase 69167 H CK-MB (CK-2) Troponin T C-Reactive Protein Serum Total Protein Total Protein Albumin Xxkbm-7-Magyipcqj Rasug-8-Ncouwykjy PEP Interpretation Triglycerides LDL Cholesterol Direct HDL Cholesterol Free T4 PTH Intact Urine WBC (Auto) Urine Creatinine Salicylates Acetaminophen Crossmatch 03/19/19 03/19/19 03/20/19 19:48 21:03 02:16 WBC RBC Hgb Hct MCV MCHC RDW Plt Count Lymph % (Auto) Andrew % (Auto) Eos % (Auto) Lymph # Andrew # Eos # Seg Neutrophils % Seg Neuts % (Manual) Lymphocytes % (Manual) Monocytes % (Manual) Nucleated RBC % Seg Neutrophils # Seg Neutrophils # Man Lymphocytes # (Manual) Monocytes # (Manual) PT INR D-Dimer Heparin Anti-Xa Level POC ABG pH 7.279 L ABG pH POC ABG pCO2 50.3 H POC ABG pO2 129 H ABG pO2 ABG HCO3 ABG O2 Saturation ABG Base Excess ABG Hemoglobin Oxyhemoglobin Sodium Potassium Chloride Carbon Dioxide BUN Creatinine Glucose POC Glucose 119 H 119 H Lactic Acid Calcium Ionized Calcium Phosphorus Magnesium Iron TIBC Ferritin Total Bilirubin Direct Bilirubin AST ALT Alkaline Phosphatase Total Creatine Kinase CK-MB (CK-2) Troponin T C-Reactive Protein Serum Total Protein Total Protein Albumin Mctyg-4-Zfyhwjmxa Rlxlt-2-Qvnagjpek PEP Interpretation Triglycerides LDL Cholesterol Direct HDL Cholesterol Free T4 PTH Intact Urine WBC (Auto) Urine Creatinine Salicylates Acetaminophen Crossmatch 03/20/19 03/20/19 03/20/19 04:23 05:05 09:30 WBC 36.3 H RBC Hgb Hct MCV MCHC RDW 15.5 H Plt Count 29 L Lymph % (Auto) Andrew % (Auto) Eos % (Auto) Lymph # Andrew # Eos # Seg Neutrophils % Seg Neuts % (Manual) Lymphocytes % (Manual) Monocytes % (Manual) Nucleated RBC % Seg Neutrophils # Seg Neutrophils # Man Lymphocytes # (Manual) Monocytes # (Manual) PT INR D-Dimer Heparin Anti-Xa Level POC ABG pH ABG pH POC ABG pCO2 POC ABG pO2 280 H ABG pO2 ABG HCO3 ABG O2 Saturation ABG Base Excess ABG Hemoglobin Oxyhemoglobin Sodium Potassium Chloride Carbon Dioxide BUN Creatinine Glucose POC Glucose 115 H Lactic Acid Calcium Ionized Calcium Phosphorus Magnesium Iron TIBC Ferritin Total Bilirubin Direct Bilirubin AST ALT Alkaline Phosphatase Total Creatine Kinase CK-MB (CK-2) Troponin T C-Reactive Protein Serum Total Protein Total Protein Albumin Heveb-4-Tntmjyspb Zbqye-4-Wjsxiluzh PEP Interpretation Triglycerides LDL Cholesterol Direct HDL Cholesterol Free T4 PTH Intact Urine WBC (Auto) Urine Creatinine Salicylates Acetaminophen Crossmatch 03/20/19 03/20/19 03/20/19 09:30 09:30 11:34 WBC RBC Hgb Hct MCV MCHC RDW Plt Count Lymph % (Auto) Andrew % (Auto) Eos % (Auto) Lymph # Andrew # Eos # Seg Neutrophils % Seg Neuts % (Manual) Lymphocytes % (Manual) Monocytes % (Manual) Nucleated RBC % Seg Neutrophils # Seg Neutrophils # Man Lymphocytes # (Manual) Monocytes # (Manual) PT INR D-Dimer Heparin Anti-Xa Level POC ABG pH ABG pH POC ABG pCO2 POC ABG pO2 ABG pO2 ABG HCO3 ABG O2 Saturation ABG Base Excess ABG Hemoglobin Oxyhemoglobin Sodium 131 L Potassium Chloride 92.3 L Carbon Dioxide 20 L BUN 68 H Creatinine 6.1 H Glucose 164 H POC Glucose 141 H Lactic Acid Calcium 5.3 L* Ionized Calcium Phosphorus Magnesium Iron TIBC Ferritin Total Bilirubin 9.50 H Direct Bilirubin AST 381 H ALT 116 H Alkaline Phosphatase 255 H Total Creatine Kinase 82886 H CK-MB (CK-2) Troponin T C-Reactive Protein Serum Total Protein Total Protein 5.1 L Albumin 2.3 L Pston-1-Ztwhwcxvv Vkmao-6-Timjyysyr PEP Interpretation Triglycerides LDL Cholesterol Direct HDL Cholesterol Free T4 PTH Intact Urine WBC (Auto) Urine Creatinine Salicylates Acetaminophen Crossmatch 03/20/19 03/20/19 03/20/19 14:41 14:45 18:50 WBC RBC Hgb Hct MCV MCHC RDW Plt Count Lymph % (Auto) Andrew % (Auto) Eos % (Auto) Lymph # Andrew # Eos # Seg Neutrophils % Seg Neuts % (Manual) Lymphocytes % (Manual) Monocytes % (Manual) Nucleated RBC % Seg Neutrophils # Seg Neutrophils # Man Lymphocytes # (Manual) Monocytes # (Manual) PT INR D-Dimer Heparin Anti-Xa Level POC ABG pH ABG pH POC ABG pCO2 POC ABG pO2 ABG pO2 ABG HCO3 ABG O2 Saturation ABG Base Excess ABG Hemoglobin Oxyhemoglobin Sodium Potassium Chloride Carbon Dioxide BUN Creatinine Glucose POC Glucose 117 H Lactic Acid 2.90 H* Calcium Ionized Calcium Phosphorus Magnesium Iron TIBC Ferritin Total Bilirubin Direct Bilirubin AST ALT Alkaline Phosphatase Total Creatine Kinase CK-MB (CK-2) Troponin T C-Reactive Protein 13.30 H Serum Total Protein Total Protein Albumin Rthzn-6-Axtjockto Udxol-7-Ynlwakmkn PEP Interpretation Triglycerides LDL Cholesterol Direct HDL Cholesterol Free T4 PTH Intact Urine WBC (Auto) Urine Creatinine Salicylates Acetaminophen Crossmatch 03/20/19 03/21/19 03/21/19 21:55 04:26 04:26 WBC 37.8 H RBC Hgb Hct MCV MCHC RDW 15.4 H Plt Count 36 L Lymph % (Auto) Andrew % (Auto) Eos % (Auto) Lymph # Andrew # Eos # Seg Neutrophils % Seg Neuts % (Manual) 93.0 H Lymphocytes % (Manual) 3.0 L Monocytes % (Manual) Nucleated RBC % 1.0 H Seg Neutrophils # 34.6 H Seg Neutrophils # Man 35.2 H Lymphocytes # (Manual) 1.1 L Monocytes # (Manual) PT INR D-Dimer Heparin Anti-Xa Level POC ABG pH ABG pH POC ABG pCO2 POC ABG pO2 ABG pO2 ABG HCO3 ABG O2 Saturation ABG Base Excess ABG Hemoglobin Oxyhemoglobin Sodium 131 L Potassium Chloride 90.7 L Carbon Dioxide 21 L BUN 69 H Creatinine 5.7 H Glucose 170 H POC Glucose 128 H Lactic Acid Calcium 6.1 L D Ionized Calcium Phosphorus Magnesium Iron TIBC Ferritin Total Bilirubin 9.50 H Direct Bilirubin AST 308 H ALT 124 H Alkaline Phosphatase 327 H Total Creatine Kinase 37363 H CK-MB (CK-2) Troponin T C-Reactive Protein Serum Total Protein Total Protein 5.7 L Albumin 2.6 L Rhrpf-4-Gbprdqeca Juxan-2-Guosisopt PEP Interpretation Triglycerides LDL Cholesterol Direct HDL Cholesterol Free T4 PTH Intact Urine WBC (Auto) Urine Creatinine Salicylates Acetaminophen Crossmatch 03/21/19 03/21/19 03/21/19 05:17 05:39 08:29 WBC RBC Hgb Hct MCV MCHC RDW Plt Count Lymph % (Auto) Andrew % (Auto) Eos % (Auto) Lymph # Andrew # Eos # Seg Neutrophils % Seg Neuts % (Manual) Lymphocytes % (Manual) Monocytes % (Manual) Nucleated RBC % Seg Neutrophils # Seg Neutrophils # Man Lymphocytes # (Manual) Monocytes # (Manual) PT INR D-Dimer Heparin Anti-Xa Level POC ABG pH ABG pH POC ABG pCO2 POC ABG pO2 209 H ABG pO2 ABG HCO3 ABG O2 Saturation ABG Base Excess ABG Hemoglobin Oxyhemoglobin Sodium Potassium Chloride Carbon Dioxide BUN Creatinine Glucose POC Glucose 145 H Lactic Acid Calcium Ionized Calcium Phosphorus Magnesium Iron TIBC Ferritin Total Bilirubin Direct Bilirubin AST ALT Alkaline Phosphatase Total Creatine Kinase 91023 H CK-MB (CK-2) Troponin T C-Reactive Protein Serum Total Protein Total Protein Albumin Ufdci-0-Odyqoxzwj Iuner-4-Tdxjwmkxb PEP Interpretation Triglycerides LDL Cholesterol Direct HDL Cholesterol Free T4 PTH Intact Urine WBC (Auto) Urine Creatinine Salicylates Acetaminophen Crossmatch 03/21/19 03/21/19 03/21/19 08:29 11:43 12:00 WBC RBC Hgb Hct MCV MCHC RDW Plt Count Lymph % (Auto) Andrew % (Auto) Eos % (Auto) Lymph # Andrew # Eos # Seg Neutrophils % Seg Neuts % (Manual) Lymphocytes % (Manual) Monocytes % (Manual) Nucleated RBC % Seg Neutrophils # Seg Neutrophils # Man Lymphocytes # (Manual) Monocytes # (Manual) PT INR D-Dimer Heparin Anti-Xa Level POC ABG pH ABG pH POC ABG pCO2 POC ABG pO2 ABG pO2 ABG HCO3 ABG O2 Saturation ABG Base Excess ABG Hemoglobin Oxyhemoglobin Sodium Potassium Chloride Carbon Dioxide BUN Creatinine Glucose POC Glucose 123 H Lactic Acid 2.60 H* 2.20 H* Calcium Ionized Calcium Phosphorus Magnesium Iron TIBC Ferritin Total Bilirubin Direct Bilirubin AST ALT Alkaline Phosphatase Total Creatine Kinase CK-MB (CK-2) Troponin T C-Reactive Protein Serum Total Protein Total Protein Albumin Hciur-4-Qgdkhlakh Wlqkg-6-Spwzqlesi PEP Interpretation Triglycerides LDL Cholesterol Direct HDL Cholesterol Free T4 PTH Intact Urine WBC (Auto) Urine Creatinine Salicylates Acetaminophen Crossmatch 03/21/19 03/21/19 03/21/19 14:11 18:28 19:32 WBC RBC Hgb Hct MCV MCHC RDW Plt Count Lymph % (Auto) Andrew % (Auto) Eos % (Auto) Lymph # Andrew # Eos # Seg Neutrophils % Seg Neuts % (Manual) Lymphocytes % (Manual) Monocytes % (Manual) Nucleated RBC % Seg Neutrophils # Seg Neutrophils # Man Lymphocytes # (Manual) Monocytes # (Manual) PT INR D-Dimer Heparin Anti-Xa Level POC ABG pH 7.293 L ABG pH POC ABG pCO2 POC ABG pO2 ABG pO2 ABG HCO3 ABG O2 Saturation ABG Base Excess ABG Hemoglobin Oxyhemoglobin Sodium Potassium Chloride Carbon Dioxide BUN Creatinine Glucose POC Glucose 153 H Lactic Acid 2.10 H* Calcium Ionized Calcium Phosphorus Magnesium Iron TIBC Ferritin Total Bilirubin Direct Bilirubin AST ALT Alkaline Phosphatase Total Creatine Kinase CK-MB (CK-2) Troponin T C-Reactive Protein Serum Total Protein Total Protein Albumin Yluxi-3-Xfpsavxad Gunxc-9-Ukxmgazow PEP Interpretation Triglycerides LDL Cholesterol Direct HDL Cholesterol Free T4 PTH Intact Urine WBC (Auto) Urine Creatinine Salicylates Acetaminophen Crossmatch 03/21/19 03/22/19 03/22/19 23:38 05:08 05:51 WBC RBC Hgb Hct MCV MCHC RDW Plt Count Lymph % (Auto) Andrew % (Auto) Eos % (Auto) Lymph # Andrew # Eos # Seg Neutrophils % Seg Neuts % (Manual) Lymphocytes % (Manual) Monocytes % (Manual) Nucleated RBC % Seg Neutrophils # Seg Neutrophils # Man Lymphocytes # (Manual) Monocytes # (Manual) PT INR D-Dimer Heparin Anti-Xa Level POC ABG pH 7.283 L ABG pH POC ABG pCO2 POC ABG pO2 53 L ABG pO2 ABG HCO3 ABG O2 Saturation ABG Base Excess ABG Hemoglobin Oxyhemoglobin Sodium Potassium Chloride Carbon Dioxide BUN Creatinine Glucose POC Glucose 149 H 131 H Lactic Acid Calcium Ionized Calcium Phosphorus Magnesium Iron TIBC Ferritin Total Bilirubin Direct Bilirubin AST ALT Alkaline Phosphatase Total Creatine Kinase CK-MB (CK-2) Troponin T C-Reactive Protein Serum Total Protein Total Protein Albumin Bbjwr-6-Cyugcredl Ibliw-9-Hfoczkyup PEP Interpretation Triglycerides LDL Cholesterol Direct HDL Cholesterol Free T4 PTH Intact Urine WBC (Auto) Urine Creatinine Salicylates Acetaminophen Crossmatch 03/22/19 03/22/19 03/22/19 08:00 08:00 18:19 WBC 36.7 H RBC Hgb 11.0 L Hct 33.5 L MCV MCHC RDW 15.5 H Plt Count 43 L Lymph % (Auto) Andrew % (Auto) Eos % (Auto) Lymph # Andrew # Eos # Seg Neutrophils % Seg Neuts % (Manual) 87.0 H Lymphocytes % (Manual) 7.0 L Monocytes % (Manual) Nucleated RBC % Seg Neutrophils # Seg Neutrophils # Man 31.9 H Lymphocytes # (Manual) Monocytes # (Manual) PT INR D-Dimer Heparin Anti-Xa Level POC ABG pH ABG pH POC ABG pCO2 46.4 H POC ABG pO2 108 H ABG pO2 ABG HCO3 ABG O2 Saturation ABG Base Excess ABG Hemoglobin Oxyhemoglobin Sodium 132 L Potassium 5.6 H Chloride 89.6 L Carbon Dioxide 20 L BUN 101 H Creatinine 7.4 H Glucose 124 H POC Glucose Lactic Acid Calcium 5.2 L* Ionized Calcium Phosphorus Magnesium Iron TIBC Ferritin Total Bilirubin 2.80 H Direct Bilirubin AST 119 H ALT 86 H Alkaline Phosphatase 245 H Total Creatine Kinase CK-MB (CK-2) Troponin T C-Reactive Protein Serum Total Protein Total Protein 5.6 L Albumin 2.5 L Iawbt-7-Nzkooazqk Ctogh-9-Kzyabizaq PEP Interpretation Triglycerides LDL Cholesterol Direct HDL Cholesterol Free T4 PTH Intact Urine WBC (Auto) Urine Creatinine Salicylates Acetaminophen Crossmatch 03/22/19 03/23/19 03/23/19 20:37 04:49 05:28 WBC 35.9 H RBC Hgb 10.8 L Hct 33.2 L MCV MCHC RDW 15.5 H Plt Count 49 L Lymph % (Auto) Andrew % (Auto) Eos % (Auto) Lymph # Andrew # Eos # Seg Neutrophils % Seg Neuts % (Manual) 81.0 H Lymphocytes % (Manual) 3.5 L Monocytes % (Manual) Nucleated RBC % Seg Neutrophils # Seg Neutrophils # Man 29.1 H Lymphocytes # (Manual) Monocytes # (Manual) 1.4 H PT INR D-Dimer Heparin Anti-Xa Level POC ABG pH 7.296 L ABG pH POC ABG pCO2 46.2 H POC ABG pO2 ABG pO2 ABG HCO3 ABG O2 Saturation ABG Base Excess ABG Hemoglobin Oxyhemoglobin Sodium 129 L Potassium 5.2 H Chloride 91.1 L Carbon Dioxide BUN 91 H Creatinine 6.6 H Glucose 190 H POC Glucose Lactic Acid Calcium 5.3 L* Ionized Calcium Phosphorus Magnesium Iron TIBC Ferritin Total Bilirubin 1.80 H Direct Bilirubin AST 80 H ALT 62 H Alkaline Phosphatase 209 H Total Creatine Kinase 9758 H CK-MB (CK-2) Troponin T C-Reactive Protein Serum Total Protein Total Protein 5.2 L Albumin 2.2 L Nvmqf-8-Jjisixstn Eunkd-9-Hjjzovtue PEP Interpretation Triglycerides LDL Cholesterol Direct HDL Cholesterol Free T4 PTH Intact Urine WBC (Auto) Urine Creatinine Salicylates Acetaminophen Crossmatch 03/23/19 03/23/19 03/23/19 05:28 05:31 11:33 WBC 29.7 H RBC 3.59 L Hgb 10.1 L Hct 31.1 L MCV MCHC RDW 15.4 H Plt Count 47 L Lymph % (Auto) Andrew % (Auto) Eos % (Auto) Lymph # Andrew # Eos # Seg Neutrophils % Seg Neuts % (Manual) 89.0 H Lymphocytes % (Manual) 6.0 L Monocytes % (Manual) Nucleated RBC % 1.0 H Seg Neutrophils # Seg Neutrophils # Man 26.4 H Lymphocytes # (Manual) Monocytes # (Manual) PT INR D-Dimer Heparin Anti-Xa Level POC ABG pH ABG pH POC ABG pCO2 POC ABG pO2 ABG pO2 ABG HCO3 ABG O2 Saturation ABG Base Excess ABG Hemoglobin Oxyhemoglobin Sodium Potassium Chloride Carbon Dioxide BUN Creatinine Glucose POC Glucose 122 H 113 H Lactic Acid Calcium Ionized Calcium Phosphorus Magnesium Iron TIBC Ferritin Total Bilirubin Direct Bilirubin AST ALT Alkaline Phosphatase Total Creatine Kinase CK-MB (CK-2) Troponin T C-Reactive Protein Serum Total Protein Total Protein Albumin Yutfc-4-Bjffcagye Xlbre-0-Zmiyymvrz PEP Interpretation Triglycerides LDL Cholesterol Direct HDL Cholesterol Free T4 PTH Intact Urine WBC (Auto) Urine Creatinine Salicylates Acetaminophen Crossmatch 03/23/19 03/24/19 03/24/19 17:47 00:00 04:50 WBC 35.0 H RBC Hgb 10.4 L Hct 32.4 L MCV MCHC RDW Plt Count 60 L Lymph % (Auto) Andrew % (Auto) Eos % (Auto) Lymph # Andrew # Eos # Seg Neutrophils % Seg Neuts % (Manual) 93.0 H Lymphocytes % (Manual) 5.0 L Monocytes % (Manual) Nucleated RBC % 7.0 H Seg Neutrophils # Seg Neutrophils # Man 32.6 H Lymphocytes # (Manual) Monocytes # (Manual) PT INR D-Dimer Heparin Anti-Xa Level POC ABG pH ABG pH POC ABG pCO2 POC ABG pO2 ABG pO2 ABG HCO3 ABG O2 Saturation ABG Base Excess ABG Hemoglobin Oxyhemoglobin Sodium Potassium Chloride Carbon Dioxide BUN Creatinine Glucose POC Glucose 111 H 108 H Lactic Acid Calcium Ionized Calcium Phosphorus Magnesium Iron TIBC Ferritin Total Bilirubin Direct Bilirubin AST ALT Alkaline Phosphatase Total Creatine Kinase CK-MB (CK-2) Troponin T C-Reactive Protein Serum Total Protein Total Protein Albumin Dvxus-6-Mxgxffppm Nhmne-8-Zqkhhaoee PEP Interpretation Triglycerides LDL Cholesterol Direct HDL Cholesterol Free T4 PTH Intact Urine WBC (Auto) Urine Creatinine Salicylates Acetaminophen Crossmatch 03/24/19 03/24/19 03/24/19 04:50 05:06 12:55 WBC RBC Hgb Hct MCV MCHC RDW Plt Count Lymph % (Auto) Andrew % (Auto) Eos % (Auto) Lymph # Andrew # Eos # Seg Neutrophils % Seg Neuts % (Manual) Lymphocytes % (Manual) Monocytes % (Manual) Nucleated RBC % Seg Neutrophils # Seg Neutrophils # Man Lymphocytes # (Manual) Monocytes # (Manual) PT INR D-Dimer Heparin Anti-Xa Level POC ABG pH ABG pH POC ABG pCO2 POC ABG pO2 ABG pO2 ABG HCO3 ABG O2 Saturation ABG Base Excess ABG Hemoglobin Oxyhemoglobin Sodium 134 L Potassium 5.1 H Chloride 95.3 L Carbon Dioxide 21 L BUN 85 H Creatinine 6.4 H Glucose 109 H POC Glucose 112 H 110 H Lactic Acid Calcium 5.8 L* Ionized Calcium Phosphorus Magnesium Iron TIBC Ferritin Total Bilirubin Direct Bilirubin AST ALT Alkaline Phosphatase Total Creatine Kinase 5747 H CK-MB (CK-2) Troponin T C-Reactive Protein Serum Total Protein Total Protein Albumin Luono-8-Aoapubacj Emwdo-6-Xdmhpqtce PEP Interpretation Triglycerides LDL Cholesterol Direct HDL Cholesterol Free T4 PTH Intact Urine WBC (Auto) Urine Creatinine Salicylates Acetaminophen Crossmatch 03/24/19 03/25/19 03/25/19 23:29 05:00 05:00 WBC RBC Hgb Hct MCV MCHC RDW Plt Count Lymph % (Auto) Andrew % (Auto) Eos % (Auto) Lymph # Andrew # Eos # Seg Neutrophils % Seg Neuts % (Manual) Lymphocytes % (Manual) Monocytes % (Manual) Nucleated RBC % Seg Neutrophils # Seg Neutrophils # Man Lymphocytes # (Manual) Monocytes # (Manual) PT INR D-Dimer Heparin Anti-Xa Level POC ABG pH ABG pH POC ABG pCO2 POC ABG pO2 ABG pO2 ABG HCO3 ABG O2 Saturation ABG Base Excess ABG Hemoglobin Oxyhemoglobin Sodium 133 L Potassium Chloride 94.0 L Carbon Dioxide 21 L BUN 81 H Creatinine 6.4 H Glucose POC Glucose 109 H Lactic Acid Calcium 5.5 L* Ionized Calcium Phosphorus Magnesium Iron TIBC Ferritin Total Bilirubin Direct Bilirubin AST 80 H ALT Alkaline Phosphatase 202 H Total Creatine Kinase 3589 H CK-MB (CK-2) Troponin T C-Reactive Protein Serum Total Protein Total Protein 5.3 L Albumin 2.4 L Zlvru-5-Jgkvzlqou Zqcga-1-Ezohyynxx PEP Interpretation Triglycerides LDL Cholesterol Direct HDL Cholesterol Free T4 PTH Intact 329.9 H Urine WBC (Auto) Urine Creatinine Salicylates Acetaminophen Crossmatch 03/25/19 03/25/19 03/26/19 05:00 06:30 04:30 WBC 23.3 H RBC 3.61 L Hgb 10.2 L Hct 31.2 L MCV MCHC RDW Plt Count 57 L Lymph % (Auto) Andrew % (Auto) Eos % (Auto) Lymph # Andrew # Eos # Seg Neutrophils % Seg Neuts % (Manual) 92.0 H Lymphocytes % (Manual) 6.0 L Monocytes % (Manual) Nucleated RBC % Seg Neutrophils # Seg Neutrophils # Man 21.4 H Lymphocytes # (Manual) Monocytes # (Manual) PT INR D-Dimer Heparin Anti-Xa Level POC ABG pH ABG pH 7.326 L POC ABG pCO2 POC ABG pO2 ABG pO2 109.5 H 137.4 H ABG HCO3 18.8 L 18.6 L ABG O2 Saturation ABG Base Excess -4.4 L -6.8 L ABG Hemoglobin 10.1 L 9.9 L Oxyhemoglobin Sodium Potassium Chloride Carbon Dioxide BUN Creatinine Glucose POC Glucose Lactic Acid Calcium Ionized Calcium Phosphorus Magnesium Iron TIBC Ferritin Total Bilirubin Direct Bilirubin AST ALT Alkaline Phosphatase Total Creatine Kinase CK-MB (CK-2) Troponin T C-Reactive Protein Serum Total Protein Total Protein Albumin Uanfh-3-Oqbszwqqa Rqfle-2-Igbdngexg PEP Interpretation Triglycerides LDL Cholesterol Direct HDL Cholesterol Free T4 PTH Intact Urine WBC (Auto) Urine Creatinine Salicylates Acetaminophen Crossmatch 03/26/19 03/26/19 03/26/19 23:22 Unknown Unknown WBC 19.5 H RBC 3.44 L Hgb 9.8 L Hct 29.9 L MCV MCHC RDW Plt Count 85 L Lymph % (Auto) Andrew % (Auto) Eos % (Auto) Lymph # Andrew # Eos # Seg Neutrophils % Seg Neuts % (Manual) 95.0 H Lymphocytes % (Manual) 3.0 L Monocytes % (Manual) Nucleated RBC % Seg Neutrophils # Seg Neutrophils # Man 18.5 H Lymphocytes # (Manual) 0.6 L Monocytes # (Manual) PT INR D-Dimer Heparin Anti-Xa Level POC ABG pH ABG pH POC ABG pCO2 POC ABG pO2 ABG pO2 ABG HCO3 ABG O2 Saturation ABG Base Excess ABG Hemoglobin Oxyhemoglobin Sodium 135 L Potassium 5.2 H D Chloride 92.2 L Carbon Dioxide 18 L BUN 109 H Creatinine 8.5 H Glucose 117 H POC Glucose 69 L Lactic Acid Calcium 4.5 L* D Ionized Calcium Phosphorus Magnesium Iron TIBC Ferritin Total Bilirubin Direct Bilirubin AST ALT Alkaline Phosphatase Total Creatine Kinase 4527 H CK-MB (CK-2) Troponin T C-Reactive Protein Serum Total Protein Total Protein Albumin Sbavs-5-Nmjfwnbem Sqshl-2-Hhthnttwb PEP Interpretation Triglycerides LDL Cholesterol Direct HDL Cholesterol Free T4 PTH Intact Urine WBC (Auto) Urine Creatinine Salicylates Acetaminophen Crossmatch 03/27/19 03/27/19 03/27/19 04:30 04:30 09:00 WBC 19.2 H RBC 3.42 L Hgb 9.9 L Hct 30.0 L MCV MCHC RDW Plt Count 84 L Lymph % (Auto) Andrew % (Auto) Eos % (Auto) Lymph # Andrew # Eos # Seg Neutrophils % Seg Neuts % (Manual) Lymphocytes % (Manual) Monocytes % (Manual) Nucleated RBC % Seg Neutrophils # Seg Neutrophils # Man Lymphocytes # (Manual) Monocytes # (Manual) PT INR D-Dimer Heparin Anti-Xa Level POC ABG pH ABG pH POC ABG pCO2 POC ABG pO2 ABG pO2 ABG HCO3 ABG O2 Saturation ABG Base Excess ABG Hemoglobin Oxyhemoglobin Sodium 135 L Potassium Chloride 93.5 L Carbon Dioxide BUN 84 H Creatinine 7.1 H Glucose POC Glucose Lactic Acid Calcium 5.0 L* Ionized Calcium Phosphorus Magnesium Iron TIBC Ferritin Total Bilirubin Direct Bilirubin AST 78 H ALT Alkaline Phosphatase 135 H Total Creatine Kinase 4677 H CK-MB (CK-2) Troponin T C-Reactive Protein Serum Total Protein Total Protein 4.8 L Albumin 2.3 L Rakvs-4-Vymrrflmx Moqyj-4-Njmqbnkny PEP Interpretation Triglycerides 409 H LDL Cholesterol Direct HDL Cholesterol Free T4 PTH Intact Urine WBC (Auto) Urine Creatinine Salicylates Acetaminophen Crossmatch 03/27/19 03/27/19 03/27/19 12:37 14:15 14:15 WBC RBC Hgb 9.7 L Hct 29.5 L MCV MCHC RDW Plt Count 87 L Lymph % (Auto) Andrew % (Auto) Eos % (Auto) Lymph # Andrew # Eos # Seg Neutrophils % Seg Neuts % (Manual) Lymphocytes % (Manual) Monocytes % (Manual) Nucleated RBC % Seg Neutrophils # Seg Neutrophils # Man Lymphocytes # (Manual) Monocytes # (Manual) PT 15.9 H INR 1.30 H D-Dimer Heparin Anti-Xa Level POC ABG pH ABG pH POC ABG pCO2 POC ABG pO2 ABG pO2 ABG HCO3 ABG O2 Saturation ABG Base Excess ABG Hemoglobin Oxyhemoglobin Sodium Potassium Chloride Carbon Dioxide BUN Creatinine Glucose POC Glucose 129 H Lactic Acid Calcium Ionized Calcium Phosphorus Magnesium Iron TIBC Ferritin Total Bilirubin Direct Bilirubin AST ALT Alkaline Phosphatase Total Creatine Kinase CK-MB (CK-2) Troponin T C-Reactive Protein Serum Total Protein Total Protein Albumin Eubrl-7-Dwyraqyea Zmlpm-5-Vxlyfbupi PEP Interpretation Triglycerides LDL Cholesterol Direct HDL Cholesterol Free T4 PTH Intact Urine WBC (Auto) Urine Creatinine Salicylates Acetaminophen Crossmatch 03/27/19 03/27/19 03/27/19 18:00 19:22 19:23 WBC RBC Hgb Hct MCV MCHC RDW Plt Count Lymph % (Auto) Andrew % (Auto) Eos % (Auto) Lymph # Andrew # Eos # Seg Neutrophils % Seg Neuts % (Manual) Lymphocytes % (Manual) Monocytes % (Manual) Nucleated RBC % Seg Neutrophils # Seg Neutrophils # Man Lymphocytes # (Manual) Monocytes # (Manual) PT INR D-Dimer Heparin Anti-Xa Level < 0.10 L POC ABG pH ABG pH POC ABG pCO2 POC ABG pO2 ABG pO2 ABG HCO3 ABG O2 Saturation ABG Base Excess ABG Hemoglobin Oxyhemoglobin Sodium Potassium Chloride Carbon Dioxide BUN Creatinine Glucose POC Glucose 121 H Lactic Acid Calcium Ionized Calcium Phosphorus Magnesium Iron TIBC Ferritin Total Bilirubin Direct Bilirubin AST ALT Alkaline Phosphatase Total Creatine Kinase 4517 H CK-MB (CK-2) Troponin T C-Reactive Protein Serum Total Protein Total Protein Albumin Fcmpg-9-Jwrjlubhp Ytbef-7-Xqmomewra PEP Interpretation Triglycerides LDL Cholesterol Direct HDL Cholesterol Free T4 PTH Intact Urine WBC (Auto) Urine Creatinine Salicylates Acetaminophen Crossmatch 03/27/19 03/27/19 03/28/19 22:10 23:52 03:49 WBC RBC Hgb Hct MCV MCHC RDW Plt Count Lymph % (Auto) Andrew % (Auto) Eos % (Auto) Lymph # Andrew # Eos # Seg Neutrophils % Seg Neuts % (Manual) Lymphocytes % (Manual) Monocytes % (Manual) Nucleated RBC % Seg Neutrophils # Seg Neutrophils # Man Lymphocytes # (Manual) Monocytes # (Manual) PT INR D-Dimer Heparin Anti-Xa Level POC ABG pH 7.338 L ABG pH POC ABG pCO2 33.1 L POC ABG pO2 ABG pO2 ABG HCO3 ABG O2 Saturation ABG Base Excess ABG Hemoglobin Oxyhemoglobin Sodium Potassium Chloride Carbon Dioxide BUN Creatinine Glucose POC Glucose 113 H 117 H Lactic Acid Calcium Ionized Calcium Phosphorus Magnesium Iron TIBC Ferritin Total Bilirubin Direct Bilirubin AST ALT Alkaline Phosphatase Total Creatine Kinase CK-MB (CK-2) Troponin T C-Reactive Protein Serum Total Protein Total Protein Albumin Hlykb-3-Qmxopgdmf Eluby-0-Kaksrzbdl PEP Interpretation Triglycerides LDL Cholesterol Direct HDL Cholesterol Free T4 PTH Intact Urine WBC (Auto) Urine Creatinine Salicylates Acetaminophen Crossmatch 03/28/19 03/28/19 03/28/19 05:13 05:13 06:18 WBC RBC Hgb Hct MCV MCHC RDW Plt Count Lymph % (Auto) Andrew % (Auto) Eos % (Auto) Lymph # Andrew # Eos # Seg Neutrophils % Seg Neuts % (Manual) Lymphocytes % (Manual) Monocytes % (Manual) Nucleated RBC % Seg Neutrophils # Seg Neutrophils # Man Lymphocytes # (Manual) Monocytes # (Manual) PT INR D-Dimer Heparin Anti-Xa Level 0.23 L POC ABG pH ABG pH POC ABG pCO2 POC ABG pO2 ABG pO2 ABG HCO3 ABG O2 Saturation ABG Base Excess ABG Hemoglobin Oxyhemoglobin Sodium 135 L Potassium 5.5 H D Chloride 95.1 L Carbon Dioxide 16 L D BUN 129 H Creatinine 9.3 H Glucose 158 H POC Glucose 202 H Lactic Acid Calcium 4.0 L* D Ionized Calcium Phosphorus 12.40 H Magnesium Iron TIBC Ferritin Total Bilirubin Direct Bilirubin AST ALT Alkaline Phosphatase Total Creatine Kinase 4266 H CK-MB (CK-2) Troponin T C-Reactive Protein Serum Total Protein Total Protein Albumin Vwawc-2-Gosmuevac Egjak-1-Pyncqazap PEP Interpretation Triglycerides LDL Cholesterol Direct HDL Cholesterol Free T4 PTH Intact Urine WBC (Auto) Urine Creatinine Salicylates Acetaminophen Crossmatch 03/28/19 03/28/19 03/28/19 08:25 10:00 12:00 WBC RBC Hgb 4.9 L* D Hct 15.4 L* D MCV MCHC RDW Plt Count Lymph % (Auto) Andrew % (Auto) Eos % (Auto) Lymph # Andrew # Eos # Seg Neutrophils % Seg Neuts % (Manual) Lymphocytes % (Manual) Monocytes % (Manual) Nucleated RBC % Seg Neutrophils # Seg Neutrophils # Man Lymphocytes # (Manual) Monocytes # (Manual) PT 17.9 H INR 1.52 H D-Dimer 4845.98 H Heparin Anti-Xa Level POC ABG pH ABG pH POC ABG pCO2 POC ABG pO2 ABG pO2 ABG HCO3 ABG O2 Saturation ABG Base Excess ABG Hemoglobin Oxyhemoglobin Sodium Potassium Chloride Carbon Dioxide BUN Creatinine Glucose POC Glucose Lactic Acid Calcium Ionized Calcium Phosphorus Magnesium Iron TIBC Ferritin Total Bilirubin Direct Bilirubin AST ALT Alkaline Phosphatase Total Creatine Kinase CK-MB (CK-2) Troponin T C-Reactive Protein Serum Total Protein Total Protein Albumin Zhqqg-6-Hvketxyof Mhwpv-3-Rztyobzhm PEP Interpretation Triglycerides LDL Cholesterol Direct HDL Cholesterol Free T4 PTH Intact Urine WBC (Auto) Urine Creatinine Salicylates Acetaminophen Crossmatch See Detail 03/28/19 03/28/19 03/28/19 12:28 14:10 17:43 WBC RBC Hgb 5.9 L* Hct 18.3 L* MCV MCHC RDW Plt Count Lymph % (Auto) Andrew % (Auto) Eos % (Auto) Lymph # Andrew # Eos # Seg Neutrophils % Seg Neuts % (Manual) Lymphocytes % (Manual) Monocytes % (Manual) Nucleated RBC % Seg Neutrophils # Seg Neutrophils # Man Lymphocytes # (Manual) Monocytes # (Manual) PT INR D-Dimer Heparin Anti-Xa Level POC ABG pH ABG pH POC ABG pCO2 POC ABG pO2 ABG pO2 ABG HCO3 ABG O2 Saturation ABG Base Excess ABG Hemoglobin Oxyhemoglobin Sodium Potassium Chloride Carbon Dioxide BUN Creatinine Glucose POC Glucose 153 H 159 H Lactic Acid Calcium Ionized Calcium Phosphorus Magnesium Iron TIBC Ferritin Total Bilirubin Direct Bilirubin AST ALT Alkaline Phosphatase Total Creatine Kinase CK-MB (CK-2) Troponin T C-Reactive Protein Serum Total Protein Total Protein Albumin Kivwe-3-Hhuwlvdgl Mxonh-8-Ceswkicdw PEP Interpretation Triglycerides LDL Cholesterol Direct HDL Cholesterol Free T4 PTH Intact Urine WBC (Auto) Urine Creatinine Salicylates Acetaminophen Crossmatch 03/28/19 03/28/19 03/28/19 18:10 Unknown 23:59 WBC 24.8 H RBC 3.42 L Hgb 10.2 L D Hct 31.1 L D MCV MCHC RDW 15.4 H Plt Count 54 L Lymph % (Auto) Andrew % (Auto) Eos % (Auto) Lymph # Andrew # Eos # Seg Neutrophils % Seg Neuts % (Manual) 91.0 H Lymphocytes % (Manual) 8.0 L Monocytes % (Manual) Nucleated RBC % Seg Neutrophils # Seg Neutrophils # Man 22.6 H Lymphocytes # (Manual) Monocytes # (Manual) PT INR D-Dimer Heparin Anti-Xa Level POC ABG pH ABG pH POC ABG pCO2 POC ABG pO2 ABG pO2 ABG HCO3 ABG O2 Saturation ABG Base Excess ABG Hemoglobin Oxyhemoglobin Sodium Potassium 5.7 H Chloride Carbon Dioxide BUN Creatinine Glucose POC Glucose 107 H Lactic Acid Calcium Ionized Calcium Phosphorus Magnesium Iron TIBC Ferritin Total Bilirubin Direct Bilirubin AST ALT Alkaline Phosphatase Total Creatine Kinase CK-MB (CK-2) Troponin T C-Reactive Protein Serum Total Protein Total Protein Albumin Iheme-7-Pwzoblqmr Qxlbv-3-Shsjbfnwz PEP Interpretation Triglycerides LDL Cholesterol Direct HDL Cholesterol Free T4 PTH Intact Urine WBC (Auto) Urine Creatinine Salicylates Acetaminophen Crossmatch 03/29/19 03/29/19 03/29/19 04:29 05:46 06:22 WBC RBC Hgb 8.6 L Hct 25.7 L MCV MCHC RDW Plt Count 93 L Lymph % (Auto) Andrew % (Auto) Eos % (Auto) Lymph # Andrew # Eos # Seg Neutrophils % Seg Neuts % (Manual) Lymphocytes % (Manual) Monocytes % (Manual) Nucleated RBC % Seg Neutrophils # Seg Neutrophils # Man Lymphocytes # (Manual) Monocytes # (Manual) PT INR D-Dimer Heparin Anti-Xa Level POC ABG pH ABG pH POC ABG pCO2 32.2 L POC ABG pO2 ABG pO2 ABG HCO3 ABG O2 Saturation ABG Base Excess ABG Hemoglobin Oxyhemoglobin Sodium Potassium Chloride Carbon Dioxide BUN Creatinine Glucose POC Glucose 113 H Lactic Acid Calcium Ionized Calcium Phosphorus Magnesium Iron TIBC Ferritin Total Bilirubin Direct Bilirubin AST ALT Alkaline Phosphatase Total Creatine Kinase CK-MB (CK-2) Troponin T C-Reactive Protein Serum Total Protein Total Protein Albumin Thhfi-5-Gfgnlyeon Lnljr-4-Jsigfnoem PEP Interpretation Triglycerides LDL Cholesterol Direct HDL Cholesterol Free T4 PTH Intact Urine WBC (Auto) Urine Creatinine Salicylates Acetaminophen Crossmatch 03/29/19 03/29/19 03/29/19 06:22 06:22 06:22 WBC 23.2 H RBC 2.91 L Hgb 8.6 L Hct 25.8 L MCV MCHC RDW Plt Count 91 L Lymph % (Auto) Andrew % (Auto) Eos % (Auto) Lymph # Andrew # Eos # Seg Neutrophils % Seg Neuts % (Manual) Lymphocytes % (Manual) Monocytes % (Manual) Nucleated RBC % Seg Neutrophils # Seg Neutrophils # Man Lymphocytes # (Manual) Monocytes # (Manual) PT INR D-Dimer Heparin Anti-Xa Level POC ABG pH ABG pH POC ABG pCO2 POC ABG pO2 ABG pO2 ABG HCO3 ABG O2 Saturation ABG Base Excess ABG Hemoglobin Oxyhemoglobin Sodium 133 L Potassium Chloride 93.8 L Carbon Dioxide 18 L BUN 109 H Creatinine 7.4 H Glucose 124 H POC Glucose Lactic Acid Calcium 4.6 L* Ionized Calcium Phosphorus Magnesium Iron TIBC Ferritin Total Bilirubin Direct Bilirubin AST ALT Alkaline Phosphatase Total Creatine Kinase 3401 H CK-MB (CK-2) Troponin T C-Reactive Protein Serum Total Protein Total Protein Albumin Filya-4-Kzyzqmaza Wxztx-1-Spstsuskb PEP Interpretation Triglycerides 309 H LDL Cholesterol Direct HDL Cholesterol Free T4 PTH Intact Urine WBC (Auto) Urine Creatinine Salicylates Acetaminophen Crossmatch 03/29/19 03/29/19 03/29/19 11:48 11:48 18:24 WBC RBC Hgb 7.8 L Hct 23.2 L MCV MCHC RDW Plt Count Lymph % (Auto) Andrew % (Auto) Eos % (Auto) Lymph # Andrew # Eos # Seg Neutrophils % Seg Neuts % (Manual) Lymphocytes % (Manual) Monocytes % (Manual) Nucleated RBC % Seg Neutrophils # Seg Neutrophils # Man Lymphocytes # (Manual) Monocytes # (Manual) PT 15.3 H INR 1.24 H D-Dimer Heparin Anti-Xa Level POC ABG pH ABG pH POC ABG pCO2 POC ABG pO2 ABG pO2 ABG HCO3 ABG O2 Saturation ABG Base Excess ABG Hemoglobin Oxyhemoglobin Sodium Potassium Chloride Carbon Dioxide BUN Creatinine Glucose POC Glucose 122 H Lactic Acid Calcium Ionized Calcium Phosphorus Magnesium Iron TIBC Ferritin Total Bilirubin Direct Bilirubin AST ALT Alkaline Phosphatase Total Creatine Kinase CK-MB (CK-2) Troponin T C-Reactive Protein Serum Total Protein Total Protein Albumin Skpqf-7-Haorahats Vfnzx-3-Icggegcqo PEP Interpretation Triglycerides LDL Cholesterol Direct HDL Cholesterol Free T4 PTH Intact Urine WBC (Auto) Urine Creatinine Salicylates Acetaminophen Crossmatch 03/30/19 03/30/19 03/30/19 00:40 04:31 05:04 WBC RBC Hgb 7.6 L Hct 23.0 L MCV MCHC RDW Plt Count Lymph % (Auto) Andrew % (Auto) Eos % (Auto) Lymph # Andrew # Eos # Seg Neutrophils % Seg Neuts % (Manual) Lymphocytes % (Manual) Monocytes % (Manual) Nucleated RBC % Seg Neutrophils # Seg Neutrophils # Man Lymphocytes # (Manual) Monocytes # (Manual) PT INR D-Dimer Heparin Anti-Xa Level POC ABG pH 7.346 L ABG pH POC ABG pCO2 POC ABG pO2 62 L ABG pO2 ABG HCO3 ABG O2 Saturation ABG Base Excess ABG Hemoglobin Oxyhemoglobin Sodium Potassium Chloride Carbon Dioxide BUN 79 H Creatinine 6.4 H Glucose POC Glucose Lactic Acid Calcium 6.1 L D Ionized Calcium Phosphorus Magnesium Iron TIBC Ferritin Total Bilirubin Direct Bilirubin AST ALT Alkaline Phosphatase Total Creatine Kinase CK-MB (CK-2) Troponin T C-Reactive Protein Serum Total Protein Total Protein Albumin Bgbjk-8-Qtatxbkxi Wpcvj-4-Aytnvfnmu PEP Interpretation Triglycerides LDL Cholesterol Direct HDL Cholesterol Free T4 PTH Intact Urine WBC (Auto) Urine Creatinine Salicylates Acetaminophen Crossmatch 03/30/19 03/30/19 03/30/19 08:45 12:09 22:43 WBC 14.3 H RBC 2.33 L Hgb 7.0 L 7.4 L Hct 21.0 L 22.3 L MCV MCHC RDW 15.6 H Plt Count 135 L Lymph % (Auto) Andrew % (Auto) Eos % (Auto) Lymph # Andrew # Eos # Seg Neutrophils % Seg Neuts % (Manual) Lymphocytes % (Manual) Monocytes % (Manual) Nucleated RBC % Seg Neutrophils # Seg Neutrophils # Man Lymphocytes # (Manual) Monocytes # (Manual) PT INR D-Dimer Heparin Anti-Xa Level POC ABG pH ABG pH POC ABG pCO2 POC ABG pO2 ABG pO2 ABG HCO3 ABG O2 Saturation ABG Base Excess ABG Hemoglobin Oxyhemoglobin Sodium Potassium Chloride Carbon Dioxide BUN Creatinine Glucose POC Glucose Lactic Acid Calcium Ionized Calcium 3.7 L Phosphorus Magnesium Iron TIBC Ferritin Total Bilirubin Direct Bilirubin AST ALT Alkaline Phosphatase Total Creatine Kinase CK-MB (CK-2) Troponin T C-Reactive Protein Serum Total Protein Total Protein Albumin Wjosy-0-Dhieflmav Ggedc-5-Afyvkommw PEP Interpretation Triglycerides LDL Cholesterol Direct HDL Cholesterol Free T4 PTH Intact Urine WBC (Auto) Urine Creatinine Salicylates Acetaminophen Crossmatch 03/30/19 03/30/19 03/31/19 23:38 Unknown 04:44 WBC 11.5 H RBC 2.40 L Hgb 7.3 L Hct 21.9 L MCV MCHC RDW 15.4 H Plt Count Lymph % (Auto) 10.6 L Andrew % (Auto) Eos % (Auto) Lymph # Andrew # Eos # Seg Neutrophils % 81.7 H Seg Neuts % (Manual) Lymphocytes % (Manual) Monocytes % (Manual) Nucleated RBC % Seg Neutrophils # 9.4 H Seg Neutrophils # Man Lymphocytes # (Manual) Monocytes # (Manual) PT INR D-Dimer Heparin Anti-Xa Level POC ABG pH ABG pH POC ABG pCO2 POC ABG pO2 ABG pO2 ABG HCO3 ABG O2 Saturation ABG Base Excess ABG Hemoglobin Oxyhemoglobin Sodium Potassium Chloride Carbon Dioxide BUN Creatinine Glucose POC Glucose 155 H Lactic Acid Calcium Ionized Calcium Phosphorus Magnesium Iron TIBC Ferritin Total Bilirubin Direct Bilirubin 0.4 H AST 63 H ALT Alkaline Phosphatase Total Creatine Kinase CK-MB (CK-2) Troponin T C-Reactive Protein Serum Total Protein Total Protein 4.9 L Albumin 2.2 L Egjkq-0-Xanorlhhu Hqbzq-5-Slvqpxdqg PEP Interpretation Triglycerides LDL Cholesterol Direct HDL Cholesterol Free T4 PTH Intact Urine WBC (Auto) Urine Creatinine Salicylates Acetaminophen Crossmatch 03/31/19 03/31/19 03/31/19 04:44 05:44 08:20 WBC RBC Hgb Hct MCV MCHC RDW Plt Count Lymph % (Auto) Andrew % (Auto) Eos % (Auto) Lymph # Andrew # Eos # Seg Neutrophils % Seg Neuts % (Manual) Lymphocytes % (Manual) Monocytes % (Manual) Nucleated RBC % Seg Neutrophils # Seg Neutrophils # Man Lymphocytes # (Manual) Monocytes # (Manual) PT INR D-Dimer Heparin Anti-Xa Level POC ABG pH ABG pH POC ABG pCO2 53.5 H POC ABG pO2 62 L ABG pO2 ABG HCO3 ABG O2 Saturation ABG Base Excess ABG Hemoglobin Oxyhemoglobin Sodium 135 L Potassium Chloride 96.7 L Carbon Dioxide 19 L BUN 94 H Creatinine 7.8 H Glucose POC Glucose Lactic Acid Calcium 5.3 L* Ionized Calcium Phosphorus 8.20 H Magnesium Iron TIBC Ferritin Total Bilirubin Direct Bilirubin 0.4 H AST 60 H ALT Alkaline Phosphatase Total Creatine Kinase CK-MB (CK-2) Troponin T C-Reactive Protein Serum Total Protein Total Protein 4.8 L Albumin 2.1 L Mxkbo-2-Nmgjztvvq Isxgp-2-Eiqmgioaz PEP Interpretation Triglycerides LDL Cholesterol Direct HDL Cholesterol Free T4 PTH Intact Urine WBC (Auto) Urine Creatinine Salicylates Acetaminophen Crossmatch 03/31/19 04/01/19 04/01/19 22:14 04:27 04:27 WBC RBC 2.60 L Hgb 8.0 L Hct 24.1 L MCV MCHC RDW 15.7 H Plt Count Lymph % (Auto) 7.9 L Andrew % (Auto) Eos % (Auto) Lymph # 0.7 L Andrew # Eos # Seg Neutrophils % 83.6 H Seg Neuts % (Manual) Lymphocytes % (Manual) Monocytes % (Manual) Nucleated RBC % Seg Neutrophils # Seg Neutrophils # Man Lymphocytes # (Manual) Monocytes # (Manual) PT INR D-Dimer Heparin Anti-Xa Level POC ABG pH 7.286 L ABG pH POC ABG pCO2 54.7 H POC ABG pO2 179 H ABG pO2 ABG HCO3 ABG O2 Saturation ABG Base Excess ABG Hemoglobin Oxyhemoglobin Sodium Potassium Chloride Carbon Dioxide BUN 68 H Creatinine 6.6 H Glucose POC Glucose Lactic Acid Calcium 6.5 L D Ionized Calcium Phosphorus 7.30 H Magnesium Iron TIBC Ferritin Total Bilirubin Direct Bilirubin AST ALT Alkaline Phosphatase Total Creatine Kinase 1652 H CK-MB (CK-2) Troponin T C-Reactive Protein Serum Total Protein Total Protein Albumin Abomb-5-Zbaaldttf Xuvjk-1-Zzkydtpvr PEP Interpretation Triglycerides LDL Cholesterol Direct HDL Cholesterol Free T4 PTH Intact Urine WBC (Auto) Urine Creatinine Salicylates Acetaminophen Crossmatch 04/01/19 04/01/19 04/01/19 05:14 05:37 18:37 WBC RBC Hgb Hct MCV MCHC RDW Plt Count Lymph % (Auto) Andrew % (Auto) Eos % (Auto) Lymph # Andrew # Eos # Seg Neutrophils % Seg Neuts % (Manual) Lymphocytes % (Manual) Monocytes % (Manual) Nucleated RBC % Seg Neutrophils # Seg Neutrophils # Man Lymphocytes # (Manual) Monocytes # (Manual) PT INR D-Dimer Heparin Anti-Xa Level POC ABG pH 7.283 L ABG pH POC ABG pCO2 53.4 H POC ABG pO2 241 H ABG pO2 ABG HCO3 ABG O2 Saturation ABG Base Excess ABG Hemoglobin Oxyhemoglobin Sodium Potassium Chloride Carbon Dioxide BUN Creatinine Glucose POC Glucose 111 H 119 H Lactic Acid Calcium Ionized Calcium Phosphorus Magnesium Iron TIBC Ferritin Total Bilirubin Direct Bilirubin AST ALT Alkaline Phosphatase Total Creatine Kinase CK-MB (CK-2) Troponin T C-Reactive Protein Serum Total Protein Total Protein Albumin Ovhvq-8-Gzeldnrxg Dezke-7-Hjyowveak PEP Interpretation Triglycerides LDL Cholesterol Direct HDL Cholesterol Free T4 PTH Intact Urine WBC (Auto) Urine Creatinine Salicylates Acetaminophen Crossmatch 04/01/19 04/02/19 04/02/19 21:28 04:40 05:03 WBC RBC 2.36 L Hgb 7.2 L Hct 21.9 L MCV MCHC RDW 16.0 H Plt Count Lymph % (Auto) 10.8 L Andrew % (Auto) Eos % (Auto) Lymph # 0.8 L Andrew # Eos # Seg Neutrophils % 80.3 H Seg Neuts % (Manual) Lymphocytes % (Manual) Monocytes % (Manual) Nucleated RBC % Seg Neutrophils # Seg Neutrophils # Man Lymphocytes # (Manual) Monocytes # (Manual) PT INR D-Dimer Heparin Anti-Xa Level POC ABG pH 7.299 L 7.300 L ABG pH POC ABG pCO2 48.2 H 45.2 H POC ABG pO2 133 H 107 H ABG pO2 ABG HCO3 ABG O2 Saturation ABG Base Excess ABG Hemoglobin Oxyhemoglobin Sodium Potassium Chloride Carbon Dioxide BUN Creatinine Glucose POC Glucose Lactic Acid Calcium Ionized Calcium Phosphorus Magnesium Iron TIBC Ferritin Total Bilirubin Direct Bilirubin AST ALT Alkaline Phosphatase Total Creatine Kinase CK-MB (CK-2) Troponin T C-Reactive Protein Serum Total Protein Total Protein Albumin Wfjjo-2-Aippyuymb Gcpfw-3-Utgqxifwy PEP Interpretation Triglycerides LDL Cholesterol Direct HDL Cholesterol Free T4 PTH Intact Urine WBC (Auto) Urine Creatinine Salicylates Acetaminophen Crossmatch 04/02/19 04/02/19 04/02/19 05:03 05:03 12:15 WBC RBC Hgb 7.4 L Hct 22.6 L MCV MCHC RDW Plt Count Lymph % (Auto) Andrew % (Auto) Eos % (Auto) Lymph # Andrew # Eos # Seg Neutrophils % Seg Neuts % (Manual) Lymphocytes % (Manual) Monocytes % (Manual) Nucleated RBC % Seg Neutrophils # Seg Neutrophils # Man Lymphocytes # (Manual) Monocytes # (Manual) PT INR D-Dimer Heparin Anti-Xa Level POC ABG pH ABG pH POC ABG pCO2 POC ABG pO2 ABG pO2 ABG HCO3 ABG O2 Saturation ABG Base Excess ABG Hemoglobin Oxyhemoglobin Sodium 136 L Potassium Chloride 97.8 L Carbon Dioxide 18 L BUN 82 H Creatinine 8.2 H Glucose POC Glucose Lactic Acid Calcium 6.7 L Ionized Calcium Phosphorus 7.50 H Magnesium Iron 26 L TIBC 138 L Ferritin 607.0 H Total Bilirubin Direct Bilirubin AST ALT Alkaline Phosphatase Total Creatine Kinase CK-MB (CK-2) Troponin T C-Reactive Protein Serum Total Protein Total Protein Albumin Rstzi-9-Htivbiniw Fzzgi-9-Rfcdmcqwz PEP Interpretation Triglycerides LDL Cholesterol Direct HDL Cholesterol Free T4 PTH Intact Urine WBC (Auto) Urine Creatinine Salicylates Acetaminophen Crossmatch 04/02/19 04/02/19 04/03/19 16:34 17:14 04:18 WBC RBC Hgb Hct MCV MCHC RDW Plt Count Lymph % (Auto) Andrew % (Auto) Eos % (Auto) Lymph # Andrew # Eos # Seg Neutrophils % Seg Neuts % (Manual) Lymphocytes % (Manual) Monocytes % (Manual) Nucleated RBC % Seg Neutrophils # Seg Neutrophils # Man Lymphocytes # (Manual) Monocytes # (Manual) PT INR D-Dimer Heparin Anti-Xa Level POC ABG pH ABG pH POC ABG pCO2 POC ABG pO2 146 H ABG pO2 ABG HCO3 ABG O2 Saturation ABG Base Excess ABG Hemoglobin Oxyhemoglobin Sodium Potassium Chloride Carbon Dioxide BUN Creatinine Glucose POC Glucose 108 H Lactic Acid Calcium Ionized Calcium Phosphorus Magnesium Iron TIBC Ferritin Total Bilirubin Direct Bilirubin AST ALT Alkaline Phosphatase Total Creatine Kinase CK-MB (CK-2) Troponin T C-Reactive Protein Serum Total Protein Total Protein Albumin Lppxo-3-Zdfygarua Iyyxp-1-Mapiddqpi PEP Interpretation Triglycerides LDL Cholesterol Direct HDL Cholesterol Free T4 PTH Intact Urine WBC (Auto) Urine Creatinine Salicylates Acetaminophen Crossmatch See Detail 04/03/19 04/03/19 04/03/19 04:25 08:30 18:24 WBC RBC 2.40 L Hgb 7.3 L Hct 21.9 L MCV MCHC RDW Plt Count Lymph % (Auto) Andrew % (Auto) 7.7 H Eos % (Auto) Lymph # 0.9 L Andrew # Eos # Seg Neutrophils % 74.6 H Seg Neuts % (Manual) Lymphocytes % (Manual) Monocytes % (Manual) Nucleated RBC % Seg Neutrophils # Seg Neutrophils # Man Lymphocytes # (Manual) Monocytes # (Manual) PT INR D-Dimer Heparin Anti-Xa Level POC ABG pH ABG pH POC ABG pCO2 POC ABG pO2 ABG pO2 ABG HCO3 ABG O2 Saturation ABG Base Excess ABG Hemoglobin Oxyhemoglobin Sodium 136 L Potassium Chloride 97.0 L Carbon Dioxide BUN 58 H Creatinine 7.3 H Glucose POC Glucose 106 H Lactic Acid Calcium 7.5 L Ionized Calcium Phosphorus 5.80 H D Magnesium Iron TIBC Ferritin Total Bilirubin Direct Bilirubin AST ALT Alkaline Phosphatase Total Creatine Kinase CK-MB (CK-2) Troponin T C-Reactive Protein Serum Total Protein Total Protein Albumin Xygsb-0-Fawxbsfoi Mdqre-8-Pcbpzzsse PEP Interpretation Triglycerides LDL Cholesterol Direct HDL Cholesterol Free T4 PTH Intact Urine WBC (Auto) Urine Creatinine Salicylates Acetaminophen Crossmatch 04/03/19 04/04/19 04/04/19 23:43 04:47 04:47 WBC RBC 2.72 L Hgb 8.3 L Hct 24.7 L MCV MCHC RDW 15.6 H Plt Count Lymph % (Auto) Andrew % (Auto) 10.1 H Eos % (Auto) Lymph # 0.8 L Andrew # Eos # Seg Neutrophils % 71.4 H Seg Neuts % (Manual) Lymphocytes % (Manual) Monocytes % (Manual) Nucleated RBC % Seg Neutrophils # Seg Neutrophils # Man Lymphocytes # (Manual) Monocytes # (Manual) PT INR D-Dimer Heparin Anti-Xa Level POC ABG pH ABG pH POC ABG pCO2 POC ABG pO2 ABG pO2 123.8 H ABG HCO3 ABG O2 Saturation ABG Base Excess -3.0 L ABG Hemoglobin 7.9 L Oxyhemoglobin Sodium 134 L Potassium Chloride 97.9 L Carbon Dioxide BUN 64 H Creatinine 8.1 H Glucose POC Glucose Lactic Acid Calcium 7.2 L Ionized Calcium Phosphorus Magnesium Iron TIBC Ferritin Total Bilirubin Direct Bilirubin AST ALT Alkaline Phosphatase Total Creatine Kinase CK-MB (CK-2) Troponin T C-Reactive Protein Serum Total Protein Total Protein Albumin Kkxfj-5-Lyhrzakfc Flpvi-6-Alkdktcoo PEP Interpretation Triglycerides LDL Cholesterol Direct HDL Cholesterol Free T4 PTH Intact Urine WBC (Auto) Urine Creatinine Salicylates Acetaminophen Crossmatch 04/04/19 04/04/19 04/04/19 06:07 13:40 18:18 WBC RBC Hgb Hct MCV MCHC RDW Plt Count Lymph % (Auto) Andrew % (Auto) Eos % (Auto) Lymph # Andrew # Eos # Seg Neutrophils % Seg Neuts % (Manual) Lymphocytes % (Manual) Monocytes % (Manual) Nucleated RBC % Seg Neutrophils # Seg Neutrophils # Man Lymphocytes # (Manual) Monocytes # (Manual) PT INR D-Dimer Heparin Anti-Xa Level POC ABG pH ABG pH POC ABG pCO2 POC ABG pO2 ABG pO2 95.9 H ABG HCO3 ABG O2 Saturation ABG Base Excess -3.0 L ABG Hemoglobin 8.5 L Oxyhemoglobin Sodium Potassium Chloride Carbon Dioxide BUN Creatinine Glucose POC Glucose 107 H 107 H Lactic Acid Calcium Ionized Calcium Phosphorus Magnesium Iron TIBC Ferritin Total Bilirubin Direct Bilirubin AST ALT Alkaline Phosphatase Total Creatine Kinase CK-MB (CK-2) Troponin T C-Reactive Protein Serum Total Protein Total Protein Albumin Dwesy-4-Ouplctthb Puzqd-3-Xhhhrcngy PEP Interpretation Triglycerides LDL Cholesterol Direct HDL Cholesterol Free T4 PTH Intact Urine WBC (Auto) Urine Creatinine Salicylates Acetaminophen Crossmatch 04/04/19 04/05/19 04/05/19 21:22 04:09 04:09 WBC RBC 2.76 L Hgb 8.4 L Hct 25.4 L MCV MCHC RDW 15.8 H Plt Count 133 L Lymph % (Auto) Andrew % (Auto) 9.6 H Eos % (Auto) Lymph # 0.7 L Andrew # Eos # Seg Neutrophils % 72.6 H Seg Neuts % (Manual) Lymphocytes % (Manual) Monocytes % (Manual) Nucleated RBC % Seg Neutrophils # Seg Neutrophils # Man Lymphocytes # (Manual) Monocytes # (Manual) PT INR D-Dimer Heparin Anti-Xa Level POC ABG pH ABG pH POC ABG pCO2 47.2 H POC ABG pO2 137 H ABG pO2 ABG HCO3 ABG O2 Saturation ABG Base Excess ABG Hemoglobin Oxyhemoglobin Sodium 136 L Potassium Chloride Carbon Dioxide BUN 46 H Creatinine 6.7 H Glucose POC Glucose Lactic Acid Calcium 7.7 L Ionized Calcium Phosphorus Magnesium Iron TIBC Ferritin Total Bilirubin Direct Bilirubin AST ALT Alkaline Phosphatase Total Creatine Kinase CK-MB (CK-2) Troponin T C-Reactive Protein Serum Total Protein Total Protein Albumin Txfeu-1-Uvceuvptm Foxyw-9-Abbtriker PEP Interpretation Triglycerides LDL Cholesterol Direct HDL Cholesterol Free T4 PTH Intact Urine WBC (Auto) Urine Creatinine Salicylates Acetaminophen Crossmatch 04/05/19 04/05/19 04/05/19 05:28 06:14 16:50 WBC RBC Hgb Hct MCV MCHC RDW Plt Count Lymph % (Auto) Andrew % (Auto) Eos % (Auto) Lymph # Andrew # Eos # Seg Neutrophils % Seg Neuts % (Manual) Lymphocytes % (Manual) Monocytes % (Manual) Nucleated RBC % Seg Neutrophils # Seg Neutrophils # Man Lymphocytes # (Manual) Monocytes # (Manual) PT INR D-Dimer Heparin Anti-Xa Level POC ABG pH ABG pH POC ABG pCO2 POC ABG pO2 67 L ABG pO2 ABG HCO3 ABG O2 Saturation ABG Base Excess ABG Hemoglobin Oxyhemoglobin Sodium Potassium Chloride Carbon Dioxide BUN Creatinine Glucose POC Glucose 108 H Lactic Acid Calcium Ionized Calcium Phosphorus Magnesium Iron TIBC Ferritin Total Bilirubin Direct Bilirubin AST ALT Alkaline Phosphatase Total Creatine Kinase CK-MB (CK-2) Troponin T C-Reactive Protein Serum Total Protein Total Protein Albumin Decgx-9-Gboyuzzns Gpdqp-9-Nxowwruso PEP Interpretation Triglycerides LDL Cholesterol Direct HDL Cholesterol Free T4 PTH Intact Urine WBC (Auto) 40.0 H Urine Creatinine Salicylates Acetaminophen Crossmatch 04/05/19 04/06/19 04/06/19 17:22 00:13 04:44 WBC RBC 2.48 L Hgb 7.5 L Hct 22.9 L MCV MCHC RDW 16.0 H Plt Count 107 L Lymph % (Auto) Andrew % (Auto) 10.7 H Eos % (Auto) Lymph # 1.0 L Andrew # Eos # Seg Neutrophils % Seg Neuts % (Manual) Lymphocytes % (Manual) Monocytes % (Manual) Nucleated RBC % Seg Neutrophils # Seg Neutrophils # Man Lymphocytes # (Manual) Monocytes # (Manual) PT INR D-Dimer Heparin Anti-Xa Level POC ABG pH ABG pH POC ABG pCO2 POC ABG pO2 ABG pO2 ABG HCO3 ABG O2 Saturation ABG Base Excess ABG Hemoglobin Oxyhemoglobin Sodium Potassium Chloride Carbon Dioxide BUN Creatinine Glucose POC Glucose 118 H 138 H Lactic Acid Calcium Ionized Calcium Phosphorus Magnesium Iron TIBC Ferritin Total Bilirubin Direct Bilirubin AST ALT Alkaline Phosphatase Total Creatine Kinase CK-MB (CK-2) Troponin T C-Reactive Protein Serum Total Protein Total Protein Albumin Vrfuv-3-Yymfzjhhh Hgxuu-8-Uaacnwmaj PEP Interpretation Triglycerides LDL Cholesterol Direct HDL Cholesterol Free T4 PTH Intact Urine WBC (Auto) Urine Creatinine Salicylates Acetaminophen Crossmatch 04/06/19 04/06/19 04/06/19 04:44 05:20 05:23 WBC RBC Hgb Hct MCV MCHC RDW Plt Count Lymph % (Auto) Andrew % (Auto) Eos % (Auto) Lymph # Andrew # Eos # Seg Neutrophils % Seg Neuts % (Manual) Lymphocytes % (Manual) Monocytes % (Manual) Nucleated RBC % Seg Neutrophils # Seg Neutrophils # Man Lymphocytes # (Manual) Monocytes # (Manual) PT INR D-Dimer Heparin Anti-Xa Level POC ABG pH ABG pH POC ABG pCO2 POC ABG pO2 ABG pO2 104.0 H ABG HCO3 ABG O2 Saturation ABG Base Excess -2.1 L ABG Hemoglobin 7.3 L Oxyhemoglobin Sodium Potassium Chloride Carbon Dioxide BUN 64 H Creatinine 8.2 H Glucose 103 H POC Glucose 118 H Lactic Acid Calcium 7.3 L Ionized Calcium Phosphorus Magnesium Iron TIBC Ferritin Total Bilirubin Direct Bilirubin AST ALT Alkaline Phosphatase Total Creatine Kinase CK-MB (CK-2) Troponin T C-Reactive Protein Serum Total Protein Total Protein Albumin Exugn-0-Yswnpmzoi Pzrvr-0-Rllejugrr PEP Interpretation Triglycerides LDL Cholesterol Direct HDL Cholesterol Free T4 PTH Intact Urine WBC (Auto) Urine Creatinine Salicylates Acetaminophen Crossmatch 04/06/19 04/07/19 04/07/19 12:02 05:40 05:40 WBC RBC 2.59 L Hgb 7.9 L Hct 23.8 L MCV MCHC RDW 15.8 H Plt Count 89 L Lymph % (Auto) Andrew % (Auto) 10.3 H Eos % (Auto) Lymph # 1.1 L Andrew # Eos # Seg Neutrophils % Seg Neuts % (Manual) Lymphocytes % (Manual) Monocytes % (Manual) Nucleated RBC % Seg Neutrophils # Seg Neutrophils # Man Lymphocytes # (Manual) Monocytes # (Manual) PT INR D-Dimer Heparin Anti-Xa Level POC ABG pH ABG pH POC ABG pCO2 POC ABG pO2 ABG pO2 ABG HCO3 ABG O2 Saturation ABG Base Excess ABG Hemoglobin Oxyhemoglobin Sodium 136 L Potassium 3.5 L Chloride Carbon Dioxide BUN 46 H Creatinine 6.2 H Glucose POC Glucose 108 H Lactic Acid Calcium 7.9 L Ionized Calcium Phosphorus Magnesium Iron TIBC Ferritin Total Bilirubin Direct Bilirubin AST ALT Alkaline Phosphatase Total Creatine Kinase CK-MB (CK-2) Troponin T C-Reactive Protein Serum Total Protein Total Protein Albumin Ldmem-7-Eirnugtpy Cizrv-4-Fwyhkafhx PEP Interpretation Triglycerides LDL Cholesterol Direct HDL Cholesterol Free T4 PTH Intact Urine WBC (Auto) Urine Creatinine Salicylates Acetaminophen Crossmatch 04/07/19 04/09/19 04/09/19 12:57 04:28 04:28 WBC RBC 2.85 L Hgb 8.7 L Hct 26.2 L MCV MCHC RDW 15.6 H Plt Count Lymph % (Auto) Andrew % (Auto) 10.4 H Eos % (Auto) Lymph # 1.0 L Andrew # Eos # Seg Neutrophils % 73.3 H Seg Neuts % (Manual) Lymphocytes % (Manual) Monocytes % (Manual) Nucleated RBC % Seg Neutrophils # Seg Neutrophils # Man Lymphocytes # (Manual) Monocytes # (Manual) PT INR D-Dimer Heparin Anti-Xa Level POC ABG pH ABG pH POC ABG pCO2 POC ABG pO2 107 H ABG pO2 ABG HCO3 ABG O2 Saturation ABG Base Excess ABG Hemoglobin Oxyhemoglobin Sodium Potassium 3.5 L Chloride 97.8 L Carbon Dioxide BUN 62 H Creatinine 8.1 H Glucose POC Glucose Lactic Acid Calcium 8.2 L Ionized Calcium Phosphorus 5.10 H Magnesium Iron TIBC Ferritin Total Bilirubin Direct Bilirubin AST ALT Alkaline Phosphatase Total Creatine Kinase CK-MB (CK-2) Troponin T C-Reactive Protein Serum Total Protein Total Protein Albumin Aauxr-9-Epmuonjqz Rdejv-1-Wafcqnuet PEP Interpretation Triglycerides LDL Cholesterol Direct HDL Cholesterol Free T4 PTH Intact Urine WBC (Auto) Urine Creatinine Salicylates Acetaminophen Crossmatch 04/10/19 04/11/19 04/11/19 18:15 00:25 04:16 WBC 11.5 H RBC 2.91 L Hgb 8.9 L Hct 27.6 L MCV 95 H MCHC RDW 17.5 H Plt Count Lymph % (Auto) Andrew % (Auto) Eos % (Auto) Lymph # Andrew # Eos # Seg Neutrophils % Seg Neuts % (Manual) 71.0 H Lymphocytes % (Manual) Monocytes % (Manual) 8.0 H Nucleated RBC % Seg Neutrophils # Seg Neutrophils # Man 8.2 H Lymphocytes # (Manual) Monocytes # (Manual) 0.9 H PT INR D-Dimer Heparin Anti-Xa Level POC ABG pH ABG pH POC ABG pCO2 POC ABG pO2 ABG pO2 ABG HCO3 ABG O2 Saturation ABG Base Excess ABG Hemoglobin Oxyhemoglobin Sodium Potassium Chloride Carbon Dioxide BUN Creatinine Glucose POC Glucose 109 H 114 H Lactic Acid Calcium Ionized Calcium Phosphorus Magnesium Iron TIBC Ferritin Total Bilirubin Direct Bilirubin AST ALT Alkaline Phosphatase Total Creatine Kinase CK-MB (CK-2) Troponin T C-Reactive Protein Serum Total Protein Total Protein Albumin Codup-4-Sfapgijii Ninkq-4-Fvhmsyfcw PEP Interpretation Triglycerides LDL Cholesterol Direct HDL Cholesterol Free T4 PTH Intact Urine WBC (Auto) Urine Creatinine Salicylates Acetaminophen Crossmatch 04/11/19 04/11/19 04/11/19 06:47 09:21 12:15 WBC RBC Hgb Hct MCV MCHC RDW Plt Count Lymph % (Auto) Andrew % (Auto) Eos % (Auto) Lymph # Andrew # Eos # Seg Neutrophils % Seg Neuts % (Manual) Lymphocytes % (Manual) Monocytes % (Manual) Nucleated RBC % Seg Neutrophils # Seg Neutrophils # Man Lymphocytes # (Manual) Monocytes # (Manual) PT INR D-Dimer Heparin Anti-Xa Level POC ABG pH ABG pH POC ABG pCO2 POC ABG pO2 ABG pO2 ABG HCO3 ABG O2 Saturation ABG Base Excess ABG Hemoglobin Oxyhemoglobin Sodium Potassium 3.5 L Chloride Carbon Dioxide BUN 45 H Creatinine 6.0 H Glucose 113 H POC Glucose 106 H 109 H Lactic Acid Calcium Ionized Calcium Phosphorus Magnesium Iron TIBC Ferritin Total Bilirubin Direct Bilirubin AST ALT Alkaline Phosphatase Total Creatine Kinase CK-MB (CK-2) Troponin T C-Reactive Protein Serum Total Protein Total Protein Albumin Nwajk-2-Oqwhevjbd Lpxgi-4-Bihmgmvcx PEP Interpretation Triglycerides LDL Cholesterol Direct HDL Cholesterol Free T4 PTH Intact Urine WBC (Auto) Urine Creatinine Salicylates Acetaminophen Crossmatch 04/11/19 04/12/19 04/12/19 18:42 12:13 23:52 WBC RBC Hgb Hct MCV MCHC RDW Plt Count Lymph % (Auto) Andrew % (Auto) Eos % (Auto) Lymph # Andrew # Eos # Seg Neutrophils % Seg Neuts % (Manual) Lymphocytes % (Manual) Monocytes % (Manual) Nucleated RBC % Seg Neutrophils # Seg Neutrophils # Man Lymphocytes # (Manual) Monocytes # (Manual) PT INR D-Dimer Heparin Anti-Xa Level POC ABG pH ABG pH POC ABG pCO2 POC ABG pO2 ABG pO2 ABG HCO3 ABG O2 Saturation ABG Base Excess ABG Hemoglobin Oxyhemoglobin Sodium Potassium Chloride Carbon Dioxide BUN Creatinine Glucose POC Glucose 107 H 115 H 124 H Lactic Acid Calcium Ionized Calcium Phosphorus Magnesium Iron TIBC Ferritin Total Bilirubin Direct Bilirubin AST ALT Alkaline Phosphatase Total Creatine Kinase CK-MB (CK-2) Troponin T C-Reactive Protein Serum Total Protein Total Protein Albumin Jhnvh-1-Tpfcfdkao Wsxcn-8-Gemscipzj PEP Interpretation Triglycerides LDL Cholesterol Direct HDL Cholesterol Free T4 PTH Intact Urine WBC (Auto) Urine Creatinine Salicylates Acetaminophen Crossmatch 04/13/19 04/13/19 04/13/19 05:00 05:00 05:47 WBC 11.7 H RBC 2.97 L Hgb 8.8 L Hct 27.3 L MCV MCHC RDW 16.1 H Plt Count Lymph % (Auto) 9.5 L Andrew % (Auto) 9.9 H Eos % (Auto) Lymph # 1.1 L Andrew # 1.2 H Eos # Seg Neutrophils % 78.6 H Seg Neuts % (Manual) Lymphocytes % (Manual) Monocytes % (Manual) Nucleated RBC % Seg Neutrophils # 9.2 H Seg Neutrophils # Man Lymphocytes # (Manual) Monocytes # (Manual) PT INR D-Dimer Heparin Anti-Xa Level POC ABG pH ABG pH POC ABG pCO2 POC ABG pO2 ABG pO2 ABG HCO3 ABG O2 Saturation ABG Base Excess ABG Hemoglobin Oxyhemoglobin Sodium Potassium 3.5 L Chloride Carbon Dioxide BUN 42 H Creatinine 4.6 H Glucose 106 H POC Glucose 107 H Lactic Acid Calcium 10.6 H D Ionized Calcium Phosphorus 5.90 H Magnesium Iron TIBC Ferritin Total Bilirubin Direct Bilirubin AST ALT Alkaline Phosphatase Total Creatine Kinase CK-MB (CK-2) Troponin T C-Reactive Protein Serum Total Protein Total Protein 5.8 L Albumin 2.5 L Gqsvr-7-Wmmyfyyam Ydics-4-Evmtyndbr PEP Interpretation Triglycerides LDL Cholesterol Direct HDL Cholesterol Free T4 PTH Intact Urine WBC (Auto) Urine Creatinine Salicylates Acetaminophen Crossmatch 04/13/19 04/14/19 04/14/19 17:32 00:00 03:55 WBC RBC Hgb Hct MCV MCHC RDW Plt Count Lymph % (Auto) Andrew % (Auto) Eos % (Auto) Lymph # Andrew # Eos # Seg Neutrophils % Seg Neuts % (Manual) Lymphocytes % (Manual) Monocytes % (Manual) Nucleated RBC % Seg Neutrophils # Seg Neutrophils # Man Lymphocytes # (Manual) Monocytes # (Manual) PT INR D-Dimer Heparin Anti-Xa Level POC ABG pH ABG pH POC ABG pCO2 POC ABG pO2 ABG pO2 ABG HCO3 ABG O2 Saturation ABG Base Excess ABG Hemoglobin Oxyhemoglobin Sodium Potassium 3.0 L Chloride Carbon Dioxide BUN 30 H Creatinine 3.1 H Glucose POC Glucose 112 H 120 H Lactic Acid Calcium 10.8 H Ionized Calcium Phosphorus Magnesium Iron TIBC Ferritin Total Bilirubin Direct Bilirubin AST ALT Alkaline Phosphatase Total Creatine Kinase CK-MB (CK-2) Troponin T C-Reactive Protein Serum Total Protein Total Protein Albumin Yybxg-5-Chejpbpcc Fdlpk-0-Siftxvssn PEP Interpretation Triglycerides LDL Cholesterol Direct HDL Cholesterol Free T4 PTH Intact Urine WBC (Auto) Urine Creatinine Salicylates Acetaminophen Crossmatch 04/14/19 04/14/19 04/15/19 11:56 23:28 05:11 WBC 13.0 H RBC 2.93 L Hgb 8.6 L Hct 26.5 L MCV MCHC RDW 16.5 H Plt Count Lymph % (Auto) 12.2 L Andrew % (Auto) 9.1 H Eos % (Auto) Lymph # Andrew # 1.2 H Eos # Seg Neutrophils % 77.6 H Seg Neuts % (Manual) Lymphocytes % (Manual) Monocytes % (Manual) Nucleated RBC % Seg Neutrophils # 10.1 H Seg Neutrophils # Man Lymphocytes # (Manual) Monocytes # (Manual) PT INR D-Dimer Heparin Anti-Xa Level POC ABG pH ABG pH POC ABG pCO2 POC ABG pO2 ABG pO2 ABG HCO3 ABG O2 Saturation ABG Base Excess ABG Hemoglobin Oxyhemoglobin Sodium Potassium Chloride Carbon Dioxide BUN Creatinine Glucose POC Glucose 109 H 112 H Lactic Acid Calcium Ionized Calcium Phosphorus Magnesium Iron TIBC Ferritin Total Bilirubin Direct Bilirubin AST ALT Alkaline Phosphatase Total Creatine Kinase CK-MB (CK-2) Troponin T C-Reactive Protein Serum Total Protein Total Protein Albumin Vzotg-3-Jwbwlzgzh Usrqi-3-Npbixahpu PEP Interpretation Triglycerides LDL Cholesterol Direct HDL Cholesterol Free T4 PTH Intact Urine WBC (Auto) Urine Creatinine Salicylates Acetaminophen Crossmatch 04/15/19 04/15/19 04/15/19 05:11 05:31 18:03 WBC RBC Hgb Hct MCV MCHC RDW Plt Count Lymph % (Auto) Andrew % (Auto) Eos % (Auto) Lymph # Andrew # Eos # Seg Neutrophils % Seg Neuts % (Manual) Lymphocytes % (Manual) Monocytes % (Manual) Nucleated RBC % Seg Neutrophils # Seg Neutrophils # Man Lymphocytes # (Manual) Monocytes # (Manual) PT INR D-Dimer Heparin Anti-Xa Level POC ABG pH ABG pH POC ABG pCO2 POC ABG pO2 ABG pO2 ABG HCO3 ABG O2 Saturation ABG Base Excess ABG Hemoglobin Oxyhemoglobin Sodium Potassium 3.2 L Chloride Carbon Dioxide BUN 44 H Creatinine 3.6 H Glucose 106 H POC Glucose 110 H 121 H Lactic Acid Calcium 12.0 H Ionized Calcium Phosphorus 5.00 H Magnesium Iron TIBC Ferritin Total Bilirubin Direct Bilirubin AST ALT Alkaline Phosphatase Total Creatine Kinase CK-MB (CK-2) Troponin T C-Reactive Protein Serum Total Protein Total Protein Albumin Myuxz-9-Ybzwvhfbj Ivhtc-6-Pegkxlmcx PEP Interpretation Triglycerides LDL Cholesterol Direct HDL Cholesterol Free T4 PTH Intact Urine WBC (Auto) Urine Creatinine Salicylates Acetaminophen Crossmatch 04/16/19 04/16/19 04/17/19 05:07 05:07 04:15 WBC 12.6 H RBC 3.12 L Hgb 9.0 L Hct 28.2 L MCV MCHC RDW 16.6 H Plt Count Lymph % (Auto) 10.3 L Andrew % (Auto) 9.8 H Eos % (Auto) Lymph # Andrew # 1.2 H Eos # Seg Neutrophils % 78.2 H Seg Neuts % (Manual) Lymphocytes % (Manual) Monocytes % (Manual) Nucleated RBC % Seg Neutrophils # 9.9 H Seg Neutrophils # Man Lymphocytes # (Manual) Monocytes # (Manual) PT INR D-Dimer Heparin Anti-Xa Level POC ABG pH ABG pH POC ABG pCO2 POC ABG pO2 ABG pO2 ABG HCO3 ABG O2 Saturation ABG Base Excess ABG Hemoglobin Oxyhemoglobin Sodium 147 H 150 H Potassium 3.5 L 3.1 L Chloride Carbon Dioxide 32 H BUN 54 H 65 H Creatinine 3.8 H 4.0 H Glucose 102 H 107 H POC Glucose Lactic Acid Calcium 11.7 H 12.0 H Ionized Calcium Phosphorus 5.40 H Magnesium Iron TIBC Ferritin Total Bilirubin Direct Bilirubin AST ALT Alkaline Phosphatase Total Creatine Kinase CK-MB (CK-2) Troponin T C-Reactive Protein 7.10 H Serum Total Protein Total Protein Albumin Ysefk-1-Ggedktmxb Srcxf-3-Qmirylwtb PEP Interpretation Triglycerides LDL Cholesterol Direct HDL Cholesterol Free T4 PTH Intact Urine WBC (Auto) Urine Creatinine Salicylates Acetaminophen Crossmatch 04/17/19 04/17/19 04/17/19 04:15 06:05 12:49 WBC 15.8 H RBC 3.32 L Hgb 9.5 L Hct 29.9 L MCV MCHC RDW 16.9 H Plt Count Lymph % (Auto) 12.6 L Andrew % (Auto) 11.1 H Eos % (Auto) Lymph # Andrew # 1.7 H Eos # Seg Neutrophils % 74.7 H Seg Neuts % (Manual) Lymphocytes % (Manual) Monocytes % (Manual) Nucleated RBC % Seg Neutrophils # 11.8 H Seg Neutrophils # Man Lymphocytes # (Manual) Monocytes # (Manual) PT INR D-Dimer Heparin Anti-Xa Level POC ABG pH ABG pH POC ABG pCO2 POC ABG pO2 ABG pO2 ABG HCO3 ABG O2 Saturation ABG Base Excess ABG Hemoglobin Oxyhemoglobin Sodium Potassium Chloride Carbon Dioxide BUN Creatinine Glucose POC Glucose 111 H 108 H Lactic Acid Calcium Ionized Calcium Phosphorus Magnesium Iron TIBC Ferritin Total Bilirubin Direct Bilirubin AST ALT Alkaline Phosphatase Total Creatine Kinase CK-MB (CK-2) Troponin T C-Reactive Protein Serum Total Protein Total Protein Albumin Ytkig-0-Zdosbpaio Zenkx-3-Gfhcihftg PEP Interpretation Triglycerides LDL Cholesterol Direct HDL Cholesterol Free T4 PTH Intact Urine WBC (Auto) Urine Creatinine Salicylates Acetaminophen Crossmatch 04/18/19 04/18/19 04/18/19 00:23 04:41 04:41 WBC 19.4 H RBC 3.03 L Hgb 8.6 L Hct 27.5 L MCV MCHC 31 L RDW 16.9 H Plt Count Lymph % (Auto) Andrew % (Auto) Eos % (Auto) Lymph # Andrew # Eos # Seg Neutrophils % Seg Neuts % (Manual) Lymphocytes % (Manual) Monocytes % (Manual) Nucleated RBC % Seg Neutrophils # Seg Neutrophils # Man Lymphocytes # (Manual) Monocytes # (Manual) PT INR D-Dimer Heparin Anti-Xa Level POC ABG pH ABG pH POC ABG pCO2 POC ABG pO2 ABG pO2 ABG HCO3 ABG O2 Saturation ABG Base Excess ABG Hemoglobin Oxyhemoglobin Sodium 152 H Potassium 3.0 L Chloride Carbon Dioxide BUN 80 H Creatinine 4.3 H Glucose 103 H POC Glucose 115 H Lactic Acid Calcium 11.4 H Ionized Calcium Phosphorus Magnesium Iron TIBC Ferritin Total Bilirubin Direct Bilirubin AST ALT Alkaline Phosphatase Total Creatine Kinase CK-MB (CK-2) Troponin T C-Reactive Protein Serum Total Protein Total Protein Albumin Xccka-6-Vpqvkvvoz Awnwr-5-Vgkjrsucx PEP Interpretation Triglycerides LDL Cholesterol Direct HDL Cholesterol Free T4 PTH Intact Urine WBC (Auto) Urine Creatinine Salicylates Acetaminophen Crossmatch 04/18/19 04/18/19 04/18/19 06:17 12:16 18:10 WBC RBC Hgb Hct MCV MCHC RDW Plt Count Lymph % (Auto) Andrew % (Auto) Eos % (Auto) Lymph # Andrew # Eos # Seg Neutrophils % Seg Neuts % (Manual) Lymphocytes % (Manual) Monocytes % (Manual) Nucleated RBC % Seg Neutrophils # Seg Neutrophils # Man Lymphocytes # (Manual) Monocytes # (Manual) PT INR D-Dimer Heparin Anti-Xa Level POC ABG pH ABG pH POC ABG pCO2 POC ABG pO2 ABG pO2 ABG HCO3 ABG O2 Saturation ABG Base Excess ABG Hemoglobin Oxyhemoglobin Sodium Potassium Chloride Carbon Dioxide BUN Creatinine Glucose POC Glucose 124 H 119 H 111 H Lactic Acid Calcium Ionized Calcium Phosphorus Magnesium Iron TIBC Ferritin Total Bilirubin Direct Bilirubin AST ALT Alkaline Phosphatase Total Creatine Kinase CK-MB (CK-2) Troponin T C-Reactive Protein Serum Total Protein Total Protein Albumin Nutug-6-Nkjlkdewj Amwiv-4-Ezpfuryiw PEP Interpretation Triglycerides LDL Cholesterol Direct HDL Cholesterol Free T4 PTH Intact Urine WBC (Auto) Urine Creatinine Salicylates Acetaminophen Crossmatch 10/24/19 10/24/19 10/25/19 03:49 05:27 09:09 WBC RBC Hgb Hct MCV MCHC RDW Plt Count Lymph % (Auto) Andrew % (Auto) Eos % (Auto) Lymph # Andrew # Eos # Seg Neutrophils % Seg Neuts % (Manual) Lymphocytes % (Manual) Monocytes % (Manual) Nucleated RBC % Seg Neutrophils # Seg Neutrophils # Man Lymphocytes # (Manual) Monocytes # (Manual) PT INR D-Dimer Heparin Anti-Xa Level POC ABG pH ABG pH POC ABG pCO2 POC ABG pO2 ABG pO2 ABG HCO3 ABG O2 Saturation ABG Base Excess ABG Hemoglobin Oxyhemoglobin Sodium 147 H 150 H Potassium 3.3 L Chloride 108.9 H Carbon Dioxide BUN 45 H 70 H Creatinine 2.9 H 4.1 H Glucose 105 H POC Glucose 124 H Lactic Acid Calcium 10.6 H 11.6 H Ionized Calcium Phosphorus Magnesium Iron TIBC Ferritin Total Bilirubin Direct Bilirubin AST ALT Alkaline Phosphatase Total Creatine Kinase CK-MB (CK-2) Troponin T C-Reactive Protein Serum Total Protein Total Protein Albumin Zpibo-3-Dfpimevvy Sxhxc-1-Oepucqjyi PEP Interpretation Triglycerides LDL Cholesterol Direct HDL Cholesterol Free T4 PTH Intact Urine WBC (Auto) Urine Creatinine Salicylates Acetaminophen Crossmatch 04/20/19 04/20/19 04/21/19 12:29 18:45 01:34 WBC RBC Hgb Hct MCV MCHC RDW Plt Count Lymph % (Auto) Andrew % (Auto) Eos % (Auto) Lymph # Andrew # Eos # Seg Neutrophils % Seg Neuts % (Manual) Lymphocytes % (Manual) Monocytes % (Manual) Nucleated RBC % Seg Neutrophils # Seg Neutrophils # Man Lymphocytes # (Manual) Monocytes # (Manual) PT INR D-Dimer Heparin Anti-Xa Level POC ABG pH ABG pH POC ABG pCO2 POC ABG pO2 ABG pO2 ABG HCO3 ABG O2 Saturation ABG Base Excess ABG Hemoglobin Oxyhemoglobin Sodium Potassium Chloride Carbon Dioxide BUN 40 H Creatinine 2.6 H Glucose 104 H POC Glucose 131 H 134 H Lactic Acid Calcium 11.0 H Ionized Calcium Phosphorus Magnesium Iron TIBC Ferritin Total Bilirubin Direct Bilirubin AST ALT Alkaline Phosphatase Total Creatine Kinase CK-MB (CK-2) Troponin T C-Reactive Protein Serum Total Protein Total Protein Albumin Szcvn-0-Hlsadujgb Dznpu-8-Axvdxkrja PEP Interpretation Triglycerides LDL Cholesterol Direct HDL Cholesterol Free T4 PTH Intact Urine WBC (Auto) Urine Creatinine Salicylates Acetaminophen Crossmatch 04/21/19 04/21/19 04/22/19 04:22 04:22 04:24 WBC 14.2 H 14.3 H RBC 3.02 L 3.57 L Hgb 8.7 L 10.1 L Hct 27.2 L 32.1 L MCV MCHC RDW 16.7 H 17.2 H Plt Count Lymph % (Auto) Andrew % (Auto) Eos % (Auto) Lymph # Andrew # Eos # Seg Neutrophils % Seg Neuts % (Manual) Lymphocytes % (Manual) Monocytes % (Manual) Nucleated RBC % Seg Neutrophils # Seg Neutrophils # Man Lymphocytes # (Manual) Monocytes # (Manual) PT INR D-Dimer Heparin Anti-Xa Level POC ABG pH ABG pH POC ABG pCO2 POC ABG pO2 ABG pO2 ABG HCO3 ABG O2 Saturation ABG Base Excess ABG Hemoglobin Oxyhemoglobin Sodium Potassium Chloride Carbon Dioxide BUN Creatinine Glucose POC Glucose Lactic Acid Calcium Ionized Calcium Phosphorus Magnesium Iron TIBC Ferritin Total Bilirubin Direct Bilirubin AST ALT Alkaline Phosphatase Total Creatine Kinase CK-MB (CK-2) Troponin T C-Reactive Protein Serum Total Protein 5.7 L Total Protein Albumin 2.3 L Seyur-1-Dizbbkzgb 0.5 H Nitlw-6-Eqruizxza 1.0 H PEP Interpretation see below H Triglycerides LDL Cholesterol Direct HDL Cholesterol Free T4 PTH Intact Urine WBC (Auto) Urine Creatinine Salicylates Acetaminophen Crossmatch 04/22/19 04/22/19 04/22/19 04:24 06:37 11:57 WBC RBC Hgb Hct MCV MCHC RDW Plt Count Lymph % (Auto) Andrew % (Auto) Eos % (Auto) Lymph # Andrew # Eos # Seg Neutrophils % Seg Neuts % (Manual) Lymphocytes % (Manual) Monocytes % (Manual) Nucleated RBC % Seg Neutrophils # Seg Neutrophils # Man Lymphocytes # (Manual) Monocytes # (Manual) PT INR D-Dimer Heparin Anti-Xa Level POC ABG pH ABG pH POC ABG pCO2 POC ABG pO2 ABG pO2 ABG HCO3 ABG O2 Saturation ABG Base Excess ABG Hemoglobin Oxyhemoglobin Sodium Potassium Chloride Carbon Dioxide BUN 54 H Creatinine 3.5 H Glucose POC Glucose 113 H 110 H Lactic Acid Calcium 11.4 H Ionized Calcium Phosphorus Magnesium Iron TIBC Ferritin Total Bilirubin Direct Bilirubin AST ALT Alkaline Phosphatase Total Creatine Kinase CK-MB (CK-2) Troponin T C-Reactive Protein Serum Total Protein Total Protein Albumin Dwrkp-9-Xxfcjbzzx Ffmwa-3-Bwqdkaqhq PEP Interpretation Triglycerides LDL Cholesterol Direct HDL Cholesterol Free T4 PTH Intact Urine WBC (Auto) Urine Creatinine Salicylates Acetaminophen Crossmatch 04/22/19 04/23/19 04/23/19 18:33 04:06 04:06 WBC 16.1 H RBC 3.36 L Hgb 9.8 L Hct 30.8 L MCV MCHC RDW 17.7 H Plt Count Lymph % (Auto) 9.9 L Andrew % (Auto) Eos % (Auto) Lymph # Andrew # Eos # Seg Neutrophils % 84.2 H Seg Neuts % (Manual) Lymphocytes % (Manual) Monocytes % (Manual) Nucleated RBC % Seg Neutrophils # 13.6 H Seg Neutrophils # Man Lymphocytes # (Manual) Monocytes # (Manual) PT INR D-Dimer Heparin Anti-Xa Level POC ABG pH ABG pH POC ABG pCO2 POC ABG pO2 ABG pO2 ABG HCO3 ABG O2 Saturation ABG Base Excess ABG Hemoglobin Oxyhemoglobin Sodium Potassium Chloride Carbon Dioxide BUN 59 H Creatinine 3.8 H Glucose POC Glucose 120 H Lactic Acid Calcium 12.3 H* Ionized Calcium Phosphorus 5.70 H Magnesium Iron TIBC Ferritin Total Bilirubin Direct Bilirubin AST ALT Alkaline Phosphatase Total Creatine Kinase CK-MB (CK-2) Troponin T C-Reactive Protein Serum Total Protein Total Protein Albumin 3.2 L Skznz-0-Nfymepknl Susza-4-Smlorawoc PEP Interpretation Triglycerides LDL Cholesterol Direct HDL Cholesterol Free T4 PTH Intact Urine WBC (Auto) Urine Creatinine Salicylates Acetaminophen Crossmatch 04/23/19 04/24/19 04/24/19 18:06 04:12 04:12 WBC 18.0 H RBC 3.46 L Hgb 9.8 L Hct 31.2 L MCV MCHC 31 L RDW 17.5 H Plt Count Lymph % (Auto) 11.1 L Andrew % (Auto) Eos % (Auto) Lymph # Andrew # Eos # Seg Neutrophils % 81.9 H Seg Neuts % (Manual) Lymphocytes % (Manual) Monocytes % (Manual) Nucleated RBC % Seg Neutrophils # 14.7 H Seg Neutrophils # Man Lymphocytes # (Manual) Monocytes # (Manual) PT INR D-Dimer Heparin Anti-Xa Level POC ABG pH ABG pH POC ABG pCO2 POC ABG pO2 ABG pO2 ABG HCO3 ABG O2 Saturation ABG Base Excess ABG Hemoglobin Oxyhemoglobin Sodium Potassium Chloride Carbon Dioxide BUN 56 H Creatinine 3.6 H Glucose POC Glucose 124 H Lactic Acid Calcium 12.6 H* Ionized Calcium Phosphorus Magnesium Iron TIBC Ferritin Total Bilirubin Direct Bilirubin AST ALT Alkaline Phosphatase Total Creatine Kinase CK-MB (CK-2) Troponin T C-Reactive Protein Serum Total Protein Total Protein Albumin 3.2 L Jaink-9-Airrbqunc Ernea-1-Hcscpsiud PEP Interpretation Triglycerides LDL Cholesterol Direct HDL Cholesterol Free T4 PTH Intact Urine WBC (Auto) Urine Creatinine Salicylates Acetaminophen Crossmatch 04/24/19 04/24/19 04/25/19 06:21 11:47 05:58 WBC 18.0 H RBC 2.98 L Hgb 8.3 L Hct 26.5 L MCV MCHC 31 L RDW 17.9 H Plt Count Lymph % (Auto) 10.1 L Andrew % (Auto) Eos % (Auto) Lymph # Andrew # 0.9 H Eos # Seg Neutrophils % 82.8 H Seg Neuts % (Manual) Lymphocytes % (Manual) Monocytes % (Manual) Nucleated RBC % Seg Neutrophils # 15.0 H Seg Neutrophils # Man Lymphocytes # (Manual) Monocytes # (Manual) PT INR D-Dimer Heparin Anti-Xa Level POC ABG pH ABG pH POC ABG pCO2 POC ABG pO2 ABG pO2 ABG HCO3 ABG O2 Saturation ABG Base Excess ABG Hemoglobin Oxyhemoglobin Sodium Potassium Chloride Carbon Dioxide BUN Creatinine Glucose POC Glucose 132 H 106 H Lactic Acid Calcium Ionized Calcium Phosphorus Magnesium Iron TIBC Ferritin Total Bilirubin Direct Bilirubin AST ALT Alkaline Phosphatase Total Creatine Kinase CK-MB (CK-2) Troponin T C-Reactive Protein Serum Total Protein Total Protein Albumin Oxrmf-1-Fqzotghwv Rytas-8-Sgcjlvlry PEP Interpretation Triglycerides LDL Cholesterol Direct HDL Cholesterol Free T4 PTH Intact Urine WBC (Auto) Urine Creatinine Salicylates Acetaminophen Crossmatch 04/25/19 04/26/19 04/26/19 05:58 05:57 06:08 WBC RBC Hgb Hct MCV MCHC RDW Plt Count Lymph % (Auto) Andrew % (Auto) Eos % (Auto) Lymph # Andrew # Eos # Seg Neutrophils % Seg Neuts % (Manual) Lymphocytes % (Manual) Monocytes % (Manual) Nucleated RBC % Seg Neutrophils # Seg Neutrophils # Man Lymphocytes # (Manual) Monocytes # (Manual) PT INR D-Dimer Heparin Anti-Xa Level POC ABG pH ABG pH POC ABG pCO2 POC ABG pO2 ABG pO2 ABG HCO3 ABG O2 Saturation ABG Base Excess ABG Hemoglobin Oxyhemoglobin Sodium Potassium 3.2 L Chloride Carbon Dioxide BUN 52 H 48 H Creatinine 3.2 H 2.9 H Glucose 108 H 112 H POC Glucose 109 H Lactic Acid Calcium 11.4 H 12.5 H* Ionized Calcium Phosphorus 5.90 H Magnesium Iron TIBC Ferritin Total Bilirubin Direct Bilirubin AST ALT Alkaline Phosphatase Total Creatine Kinase CK-MB (CK-2) Troponin T C-Reactive Protein Serum Total Protein Total Protein Albumin 3.0 L Qoaot-9-Zsubyzxaf Zzddx-5-Kzrzzowih PEP Interpretation Triglycerides LDL Cholesterol Direct HDL Cholesterol Free T4 PTH Intact Urine WBC (Auto) Urine Creatinine Salicylates Acetaminophen Crossmatch 04/26/19 04/26/19 04/27/19 07:22 13:39 05:05 WBC 11.9 H RBC 3.01 L Hgb 8.6 L Hct 26.3 L MCV MCHC RDW 17.6 H Plt Count Lymph % (Auto) 11.9 L Andrew % (Auto) Eos % (Auto) Lymph # Andrew # Eos # Seg Neutrophils % 78.3 H Seg Neuts % (Manual) Lymphocytes % (Manual) Monocytes % (Manual) Nucleated RBC % Seg Neutrophils # 9.4 H Seg Neutrophils # Man Lymphocytes # (Manual) Monocytes # (Manual) PT INR D-Dimer Heparin Anti-Xa Level POC ABG pH ABG pH POC ABG pCO2 POC ABG pO2 ABG pO2 ABG HCO3 ABG O2 Saturation ABG Base Excess ABG Hemoglobin Oxyhemoglobin Sodium Potassium Chloride Carbon Dioxide BUN 46 H Creatinine 2.8 H Glucose POC Glucose Lactic Acid Calcium > 13.0 H* 12.2 H* Ionized Calcium Phosphorus Magnesium Iron TIBC Ferritin Total Bilirubin Direct Bilirubin AST ALT Alkaline Phosphatase Total Creatine Kinase CK-MB (CK-2) Troponin T C-Reactive Protein Serum Total Protein Total Protein Albumin Fvamh-2-Sibusdqmy Ajbxm-7-Mmolvjmjs PEP Interpretation Triglycerides LDL Cholesterol Direct HDL Cholesterol Free T4 PTH Intact Urine WBC (Auto) Urine Creatinine Salicylates Acetaminophen Crossmatch 04/27/19 04/28/19 04/29/19 05:05 05:17 14:14 WBC RBC Hgb Hct MCV MCHC RDW Plt Count Lymph % (Auto) Andrew % (Auto) Eos % (Auto) Lymph # Andrew # Eos # Seg Neutrophils % Seg Neuts % (Manual) Lymphocytes % (Manual) Monocytes % (Manual) Nucleated RBC % Seg Neutrophils # Seg Neutrophils # Man Lymphocytes # (Manual) Monocytes # (Manual) PT INR D-Dimer Heparin Anti-Xa Level POC ABG pH ABG pH POC ABG pCO2 POC ABG pO2 ABG pO2 ABG HCO3 ABG O2 Saturation ABG Base Excess ABG Hemoglobin Oxyhemoglobin Sodium 136 L Potassium 3.2 L 3.4 L Chloride Carbon Dioxide BUN 40 H 34 H 33 H Creatinine 2.5 H 2.0 H 1.9 H Glucose 113 H 107 H POC Glucose Lactic Acid Calcium 12.3 H* 12.1 H* 11.5 H Ionized Calcium Phosphorus Magnesium Iron TIBC Ferritin Total Bilirubin Direct Bilirubin AST ALT Alkaline Phosphatase Total Creatine Kinase CK-MB (CK-2) Troponin T C-Reactive Protein Serum Total Protein Total Protein 6.2 L Albumin 2.8 L Aanje-9-Hhqddwsvk Jogdy-5-Kklomggqb PEP Interpretation Triglycerides LDL Cholesterol Direct HDL Cholesterol Free T4 PTH Intact Urine WBC (Auto) Urine Creatinine Salicylates Acetaminophen Crossmatch 04/29/19 04/29/19 04/30/19 14:14 14:14 06:47 WBC RBC Hgb Hct MCV MCHC RDW Plt Count Lymph % (Auto) Andrew % (Auto) Eos % (Auto) Lymph # Andrew # Eos # Seg Neutrophils % Seg Neuts % (Manual) Lymphocytes % (Manual) Monocytes % (Manual) Nucleated RBC % Seg Neutrophils # Seg Neutrophils # Man Lymphocytes # (Manual) Monocytes # (Manual) PT INR D-Dimer Heparin Anti-Xa Level POC ABG pH ABG pH POC ABG pCO2 POC ABG pO2 ABG pO2 ABG HCO3 ABG O2 Saturation ABG Base Excess ABG Hemoglobin Oxyhemoglobin Sodium Potassium 3.2 L Chloride Carbon Dioxide 21 L BUN 26 H Creatinine 1.8 H Glucose POC Glucose Lactic Acid Calcium 10.8 H Ionized Calcium 7.2 H* Phosphorus Magnesium Iron TIBC Ferritin Total Bilirubin Direct Bilirubin AST ALT Alkaline Phosphatase Total Creatine Kinase CK-MB (CK-2) Troponin T C-Reactive Protein Serum Total Protein Total Protein Albumin Szykx-9-Yelskenuy Tazht-3-Zwpvnxjee PEP Interpretation Triglycerides LDL Cholesterol Direct HDL Cholesterol Free T4 PTH Intact 8.83 L Urine WBC (Auto) Urine Creatinine Salicylates Acetaminophen Crossmatch 04/30/19 05/01/19 05/01/19 12:17 06:52 06:52 WBC 15.4 H RBC 3.01 L Hgb 8.4 L Hct 26.2 L MCV MCHC RDW 17.0 H Plt Count Lymph % (Auto) 8.4 L Andrew % (Auto) 8.9 H Eos % (Auto) Lymph # Andrew # 1.4 H Eos # 0.5 H Seg Neutrophils % 78.7 H Seg Neuts % (Manual) Lymphocytes % (Manual) Monocytes % (Manual) Nucleated RBC % Seg Neutrophils # 12.1 H Seg Neutrophils # Man Lymphocytes # (Manual) Monocytes # (Manual) PT INR D-Dimer Heparin Anti-Xa Level POC ABG pH ABG pH POC ABG pCO2 POC ABG pO2 ABG pO2 ABG HCO3 ABG O2 Saturation ABG Base Excess ABG Hemoglobin Oxyhemoglobin Sodium Potassium 3.0 L Chloride Carbon Dioxide BUN 22 H Creatinine Glucose POC Glucose 106 H Lactic Acid Calcium 11.2 H Ionized Calcium Phosphorus Magnesium Iron TIBC Ferritin Total Bilirubin Direct Bilirubin AST ALT Alkaline Phosphatase Total Creatine Kinase CK-MB (CK-2) Troponin T C-Reactive Protein Serum Total Protein Total Protein Albumin 3.0 L Dqrku-9-Yjndlsait Pyicx-3-Yaxvhyryt PEP Interpretation Triglycerides LDL Cholesterol Direct HDL Cholesterol Free T4 PTH Intact Urine WBC (Auto) Urine Creatinine Salicylates Acetaminophen Crossmatch 05/01/19 05/01/19 05/02/19 06:52 18:40 05:32 WBC RBC Hgb Hct MCV MCHC RDW Plt Count Lymph % (Auto) Andrew % (Auto) Eos % (Auto) Lymph # Andrew # Eos # Seg Neutrophils % Seg Neuts % (Manual) Lymphocytes % (Manual) Monocytes % (Manual) Nucleated RBC % Seg Neutrophils # Seg Neutrophils # Man Lymphocytes # (Manual) Monocytes # (Manual) PT INR D-Dimer Heparin Anti-Xa Level POC ABG pH ABG pH POC ABG pCO2 POC ABG pO2 ABG pO2 ABG HCO3 ABG O2 Saturation ABG Base Excess ABG Hemoglobin Oxyhemoglobin Sodium Potassium Chloride Carbon Dioxide BUN Creatinine Glucose POC Glucose 169 H 109 H Lactic Acid Calcium Ionized Calcium Phosphorus Magnesium Iron TIBC Ferritin Total Bilirubin Direct Bilirubin AST ALT Alkaline Phosphatase Total Creatine Kinase CK-MB (CK-2) Troponin T C-Reactive Protein Serum Total Protein 5.7 L Total Protein Albumin 2.5 L Ksjmj-1-Bpkoojopt 0.5 H Nbjfv-2-Fjebigzup PEP Interpretation see below H Triglycerides LDL Cholesterol Direct HDL Cholesterol Free T4 PTH Intact Urine WBC (Auto) Urine Creatinine Salicylates Acetaminophen Crossmatch 05/02/19 05/02/19 05/02/19 05:57 05:57 11:43 WBC 14.2 H RBC 2.96 L Hgb 8.3 L Hct 26.0 L MCV MCHC RDW 16.8 H Plt Count Lymph % (Auto) Andrew % (Auto) Eos % (Auto) Lymph # Andrew # Eos # Seg Neutrophils % Seg Neuts % (Manual) Lymphocytes % (Manual) Monocytes % (Manual) Nucleated RBC % Seg Neutrophils # Seg Neutrophils # Man Lymphocytes # (Manual) Monocytes # (Manual) PT INR D-Dimer Heparin Anti-Xa Level POC ABG pH ABG pH POC ABG pCO2 POC ABG pO2 ABG pO2 ABG HCO3 ABG O2 Saturation ABG Base Excess ABG Hemoglobin Oxyhemoglobin Sodium 136 L Potassium 3.5 L Chloride Carbon Dioxide BUN 21 H Creatinine Glucose POC Glucose 108 H Lactic Acid Calcium 11.1 H Ionized Calcium Phosphorus Magnesium Iron TIBC Ferritin Total Bilirubin Direct Bilirubin AST ALT Alkaline Phosphatase Total Creatine Kinase CK-MB (CK-2) Troponin T C-Reactive Protein Serum Total Protein Total Protein Albumin Idctu-4-Lazmhktzd Ntine-9-Llolvwkbt PEP Interpretation Triglycerides LDL Cholesterol Direct HDL Cholesterol Free T4 PTH Intact Urine WBC (Auto) Urine Creatinine Salicylates Acetaminophen Crossmatch 05/03/19 05/03/19 05/04/19 05:37 05:37 06:49 WBC 12.7 H 11.1 H RBC 3.01 L 3.07 L Hgb 8.3 L 8.6 L Hct 26.1 L 26.6 L MCV MCHC RDW 16.9 H 17.3 H Plt Count Lymph % (Auto) Andrew % (Auto) 9.0 H Eos % (Auto) 4.9 H Lymph # Andrew # 1.0 H Eos # 0.5 H Seg Neutrophils % Seg Neuts % (Manual) Lymphocytes % (Manual) Monocytes % (Manual) Nucleated RBC % Seg Neutrophils # 7.8 H Seg Neutrophils # Man Lymphocytes # (Manual) Monocytes # (Manual) PT INR D-Dimer Heparin Anti-Xa Level POC ABG pH ABG pH POC ABG pCO2 POC ABG pO2 ABG pO2 ABG HCO3 ABG O2 Saturation ABG Base Excess ABG Hemoglobin Oxyhemoglobin Sodium 135 L Potassium 3.3 L Chloride Carbon Dioxide BUN Creatinine Glucose POC Glucose Lactic Acid Calcium 10.9 H Ionized Calcium Phosphorus Magnesium 1.50 L Iron TIBC Ferritin Total Bilirubin Direct Bilirubin AST ALT Alkaline Phosphatase Total Creatine Kinase CK-MB (CK-2) Troponin T C-Reactive Protein Serum Total Protein Total Protein Albumin Ushqo-9-Lfplzbtxg Tskpq-7-Owuivetcn PEP Interpretation Triglycerides LDL Cholesterol Direct HDL Cholesterol Free T4 PTH Intact Urine WBC (Auto) Urine Creatinine Salicylates Acetaminophen Crossmatch 05/04/19 05/04/19 05/04/19 06:49 06:49 11:58 WBC RBC Hgb Hct MCV MCHC RDW Plt Count Lymph % (Auto) Andrew % (Auto) Eos % (Auto) Lymph # Andrew # Eos # Seg Neutrophils % Seg Neuts % (Manual) Lymphocytes % (Manual) Monocytes % (Manual) Nucleated RBC % Seg Neutrophils # Seg Neutrophils # Man Lymphocytes # (Manual) Monocytes # (Manual) PT 15.5 H INR 1.24 H D-Dimer Heparin Anti-Xa Level POC ABG pH ABG pH POC ABG pCO2 POC ABG pO2 ABG pO2 ABG HCO3 ABG O2 Saturation ABG Base Excess ABG Hemoglobin Oxyhemoglobin Sodium Potassium Chloride Carbon Dioxide 19 L BUN Creatinine Glucose POC Glucose 111 H Lactic Acid Calcium 10.7 H Ionized Calcium Phosphorus Magnesium Iron TIBC Ferritin Total Bilirubin Direct Bilirubin AST ALT Alkaline Phosphatase Total Creatine Kinase CK-MB (CK-2) Troponin T C-Reactive Protein Serum Total Protein Total Protein Albumin Vaevp-4-Dlahymbxa Entze-2-Jkmhirqcn PEP Interpretation Triglycerides LDL Cholesterol Direct HDL Cholesterol Free T4 PTH Intact Urine WBC (Auto) Urine Creatinine Salicylates Acetaminophen Crossmatch 05/05/19 05/05/19 06:14 06:14 WBC 11.5 H RBC 3.08 L Hgb 8.5 L Hct 26.5 L MCV MCHC RDW 17.1 H Plt Count Lymph % (Auto) Andrew % (Auto) Eos % (Auto) Lymph # Andrew # Eos # Seg Neutrophils % Seg Neuts % (Manual) Lymphocytes % (Manual) Monocytes % (Manual) Nucleated RBC % Seg Neutrophils # Seg Neutrophils # Man Lymphocytes # (Manual) Monocytes # (Manual) PT INR D-Dimer Heparin Anti-Xa Level POC ABG pH ABG pH POC ABG pCO2 POC ABG pO2 ABG pO2 ABG HCO3 ABG O2 Saturation ABG Base Excess ABG Hemoglobin Oxyhemoglobin Sodium 136 L Potassium Chloride Carbon Dioxide 21 L BUN Creatinine Glucose POC Glucose Lactic Acid Calcium 10.3 H Ionized Calcium Phosphorus Magnesium Iron TIBC Ferritin Total Bilirubin Direct Bilirubin AST ALT Alkaline Phosphatase Total Creatine Kinase CK-MB (CK-2) Troponin T C-Reactive Protein Serum Total Protein Total Protein Albumin Qvjzu-7-Pjewtqcou Gizyd-7-Ygopexhaa PEP Interpretation Triglycerides LDL Cholesterol Direct HDL Cholesterol Free T4 PTH Intact Urine WBC (Auto) Urine Creatinine Salicylates Acetaminophen Crossmatch Allied health notes reviewed: nursing
--- NOTE | 2019-05-06 19:05 | Progress Note ---
Assessment and Plan Patient is a 43-year-old man with history of GERD, obesity and mental illness, who presented to [facility] ED on 03/16/2019 with altered mental status. He is visiting from [place] and was brought in by his friend. As per records per family he has been homeless [place] [address] [place]. When he came to the ER, he was unable to speak or follow commands, in the ER he was found to have SVT with heart rate in the 250s. The patient was shocked and medicated. Also was confused, and had trouble protecting his airway; therefore, he was then intubated. He has had a prolonged hospital course. During this hospital course, he was found to have sepsis with septic shock, acute resp failure, rhabdomyolysis, RUBEN, and multisystem organ failure, toxic metabolic encephalopathy. He was started on hemodialysis-still getting dialysis. patient is much improved. Still has recurrent fever, followed by ID Physician. Patient now on Azactam, Zyvox. He passed his swallow test started on mechanical soft diet 04/21/19. Now tolerated regular diet Acute hypoxic respiratory failure. Was intubated, but now extubated. Now on Room air. Continue BiPAP as clinically indicated. Atrial fibrillation. Continue Metoprolol. Cardiology following. No systemic AC regarding AFib in setting of anemia, thrombocytopenia, GI bleed. Abnormal Lexiscan stress with ejection fraction of 45% [facility] recommended. However givenrercent history of GI bleding from duodenal ulcer GI consult was obtained to further patient for suitability of antiplatelet following cardiac catheterization. Discussed with Dr. Rojas, GI who and recommended a follow-up EGD to evaluate status of pt's duodenal ulcer before making a recommendation on antiplatelets therapy following [facility]. Acute blood loss anemia. Patient with GI bleed secondary to peptic ulcer disease. EGD completed per GI. Continue PRBCs as needed. GI bleed/peptic ulcer disease. Continue PPI. Transfuse PRBCs as needed. Sepsis/septic shock. Continue antibiotics per ID. Now on Zyvox and Azactam Fever, recurrent ID following Ischemic hepatitis/shock liver. Elevated LFTs improved. Viral hepatitis panel negative. Acute kidney injury. Patient still on hemodialysis. Patient was started on hemodialysis on 03/18/19 due to worsening metabolic acidosis and hyperkalemia. Baseline renal function is unknown. CT abdomen was negative for obstructive nephropathy. Avoid nephrotoxic agents. Continue hemodialysis per nephrology. Toxic metabolic encephalopathy. Brain MRI showed no acute intracranial abnor mality, mild nonspecific chronic white matter changes, fluid throughout the sinuses and mastoid air cells. Swelling both upper ext L>R Doppler US : no DVT LUE Hypokalemia. Correted Replete potassium as needed. Hypernatremia. Bumex was stopped. Follow-up [facility] Nephrology following Now resolved Na 141 today Thrombocytopenia. Etiology likely secondary to sepsis. Resolved. Rhabdomyolysis. CK normalized. Full code status Subjective Date of service: 05/06/19 Principal diagnosis: Anemia - DVT rt IJ Interval history: Pt seen and examine. No new complaint, Lying quietly in bed. Still Leukocytic. No fever. Objective - Exam Narrative Exam: Constitutional: Well-nourished well-developed. In no distress Head: Normocephalic atraumatic Eyes: Pupils are equal round and reactive to light Nose: No enlarged turbinates, no septal deviation. Mouth: Moist mucous membranes. Neck: Supple no thyromegaly. No bruit. No JVD Heart: Irregularly irregular. No rubs murmurs or gallop Lungs: Clear to auscultation bilaterally. no rales or rhonchi Abdomen: Soft, nontender. Bowel sound are present. Extremities: No edema, no cyanosis, no clubbing. Neuro: Alert oriented Oriented x3. No focal sensory or motor deficit. Skin: No rashes or hyperpigmented spots Musculoskeletal system: No joint pain or swelling Hematological: No petechia or subcutanous hemorrhages. Immunological: No multiple septic spots on the skin Lymphatic: No generalized lymphadenopathy Psychiatry: mildy confusd. Euthymic. Calm. - Constitutional Vitals: Vital Signs - 12hr 05/06/19 05/06/19 05/06/19 09:32 09:34 11:31 Temperature 97.5 F L Pulse Rate 83 Respiratory 20 Rate Blood Pressure 142/93 142/93 139/89 O2 Sat by Pulse 97 Oximetry 05/06/19 05/06/19 13:40 17:31 Temperature 97.9 F Pulse Rate 70 Respiratory 18 Rate Blood Pressure 139/89 130/86 O2 Sat by Pulse 97 Oximetry - Labs CBC & Chem 7: 05/05/19 06:14 05/05/19 06:14
[2019-05-06] MEDS: MELATONIN 5 MG TAB PO PRN (20:23)
[2019-05-07] MEDS: HYDROcodone/ACETAMINOPHEN 5-325 MG TAB PO PRN ×3 (06:10→20:51)
[2019-05-07 06:38] LABS: Basophils # (Auto) 0.1 K/mm3 (0.0-0.1); Basophils % (Auto) 0.7 % (0.0-1.8); Eosinophils % (Auto) 8.2 % (0.0-4.3); Hematocrit 28.5 % (35.5-45.6); Hemoglobin 9.2 gm/dl (11.8-15.2); Lymphocytes # (Auto) 2.1 K/mm3 (1.2-5.4); Lymphocytes % (Auto) 17.2 % (13.4-35.0); Mean Corpuscular HGB Conc 32 % (32-34); Mean Corpuscular Volume 86 fl (84-94); Monocytes # (Auto) 0.7 K/mm3 (0.0-0.8); Monocytes % (Auto) 5.7 % (0.0-7.3); Platelet Count 356 K/mm3 (140-440); Red Blood Count 3.33 M/mm3 (3.65-5.03); Red Cell Distribution Width 17.6 % (13.2-15.2)
[2019-05-07 06:48] LABS: INR 1.11 (0.87-1.13)
[2019-05-07 07:01] LABS: Alanine Aminotransferase 16 units/L (7-56); Albumin 3.2 g/dL (3.9-5); BUN/Creatinine Ratio 13; Blood Urea Nitrogen 15 mg/dL (9-20); Calcium 10.7 mg/dL (8.4-10.2); Hemolysis Index 0
[2019-05-07] MEDS: METOPROLOL TARTRATE 25 MG TAB PO SCH ×3 (10:32→21:01)
[2019-05-07] MEDS: LANSOPRAZOLE 30 MG SOLUTAB FEEDTUBE SCH (11:31)
[2019-05-07] MEDS: AMIODARONE 200 MG TAB PO SCH (11:32)
--- NOTE | 2019-05-07 12:58 | Progress Note ---
Assessment and Plan Patient is a 43-year-old man with history of GERD, obesity and mental illness, who presented to [facility] ED on 03/16/2019 with altered mental status. He is visiting from [place] and was brought in by his friend. As per records per family he has been homeless living [address] [place]. When he came to the ER, he was unable to speak or follow commands, in the ER he was found to have SVT with heart rate in the 250s. The patient was shocked and medicated. Also was confused, and had trouble protecting his airway; therefore, he was then intubated. He has had a prolonged hospital course. During this hospital course, he was found to have sepsis with septic shock, acute resp failure, rhabdomyolysis, RUBEN, and multisystem organ failure, toxic metabolic encephalopathy. He was started on hemodialysis-still getting dialysis. patient is much improved. Still has recurrent fever, followed by ID Physician. Patient now on Azactam, Zyvox. He passed his swallow test started on mechanical soft diet 04/21/19. Now tolerated regular diet - Acute hypoxic respiratory failure. Was intubated, but now extubated. Now on Room air. Continue BiPAP as clinically indicated. - Atrial fibrillation. Continue Metoprolol. Cardiology following. No systemic AC regarding AFib in setting of anemia, thrombocytopenia, GI bleed. - Abnormal Lexiscan stress with ejection fraction of 45% [facility] recommended. However givenrercent history of GI bleding from duodenal ulcer GI consult was obtained to further patient for suitability of antiplatelet following cardiac catheterization. Discussed with JEFF Finch who planned follow-up EGD to evaluate status of pt's duodenal ulcer before making a recommendation on antiplatelets therapy following [facility]. - Acute blood loss anemia. Patient with GI bleed secondary to peptic ulcer disease. EGD completed per GI. Continue PRBCs as needed. - GI bleed/peptic ulcer disease. Continue PPI. Transfuse PRBCs as needed. - Sepsis/septic shock. Continue antibiotics per ID. Now on Zyvox and Azactam - Fever, recurrent ID following - Ischemic hepatitis/shock liver. Elevated LFTs improved. Viral hepatitis pa zoila negative. - Acute kidney injury. Patient still on hemodialysis. Patient was started on hemodialysis on 03/18/19 due to worsening metabolic acidosis and hyperkalemia. Baseline renal function is unknown. CT abdomen was negative for obstructive nephropathy. Avoid nephrotoxic agents. Continue hemodialysis per nephrology. - Toxic metabolic encephalopathy. Brain MRI showed no acute intracranial abnormality, mild nonspecific chronic white matter changes, fluid throughout the sinuses and mastoid air cells. - Swelling both upper ext L>R Doppler US : no DVT LUE - Hypokalemia. Correted Replete potassium as needed. Hypernatremia. Bumex was stopped. Follow-up [facility] Nephrology following Now resolved Na 141 today Thrombocytopenia. Etiology likely secondary to sepsis. Resolved. Rhabdomyolysis. CK normalized. Full code status Subjective Date of service: 05/07/19 Principal diagnosis: Anemia - DVT rt IJ, GI bleeding Interval history: Pt seen and examine. No new complaint, Lying quietly in bed. Still Leukocytic. No fever. Objective - Exam Narrative Exam: Constitutional: Well-nourished well-developed. In no distress Head: Normocephalic atraumatic Eyes: Pupils are equal round and reactive to light Nose: No enlarged turbinates, no septal deviation. Mouth: Moist mucous membranes. Neck: Supple no thyromegaly. No bruit. No JVD Heart: Irregularly irregular. No rubs murmurs or gallop Lungs: Clear to auscultation bilaterally. no rales or rhonchi Abdomen: Soft, nontender. Bowel sound are present. Extremities: No edema, no cyanosis, no clubbing. Neuro: Alert oriented Oriented x3. No focal sensory or motor deficit. Skin: No rashes or hyperpigmented spots Musculoskeletal system: No joint pain or swelling Hematological: No petechia or subcutanous hemorrhages. Immunological: No multiple septic spots on the skin Lymphatic: No generalized lymphadenopathy Psychiatry: mildy confusd. Euthymic. Calm. - Constitutional Vitals: Vital Signs - 12hr 05/07/19 05/07/19 05/07/19 06:10 06:51 11:39 Temperature 97.5 F L 97.3 F L Pulse Rate 79 85 Respiratory 18 20 20 Rate Blood Pressure 152/98 123/75 O2 Sat by Pulse 96 97 Oximetry - Labs CBC & Chem 7: 05/07/19 05:55 05/07/19 05:55 Labs: Abnormal lab results 05/07/19 05/07/19 Range/Units 05:55 05:55 WBC 12.0 H (4.5-11.0) K/mm3 RBC 3.33 L (3.65-5.03) M/mm3 Hgb 9.2 L (11.8-15.2) gm/dl Hct 28.5 L (35.5-45.6) % RDW 17.6 H (13.2-15.2) % Eos % (Auto) 8.2 H (0.0-4.3) % Eos # 1.0 H (0.0-0.4) K/mm3 Seg Neutrophils # 8.2 H (1.8-7.7) K/mm3 Potassium 3.5 L (3.6-5.0) mmol/L Carbon Dioxide 20 L (22-30) mmol/L Calcium 10.7 H (8.4-10.2) mg/dL Albumin 3.2 L (3.9-5) g/dL
--- NOTE | 2019-05-07 18:43 | Progress Note ---
Assessment and Plan Patient awake and more oriented. patient counselled on using O2. O2 saturation is 95% on room air. No acute respiratory distress. Patient afebrile and has leukocytosis. Patients heart rate and blood pressure running good. Patients calcium still high, 10.7. Patient receiving normal saline. According to the patient he is going for upper GI endoscopy tomorrow. . - Patient Problems (1) Acute respiratory failure Current Visit: Yes Status: Resolved Qualifiers: Respiratory failure complication: hypoxia Qualified Code(s): J96.01 - Acute respiratory failure with hypoxia Plan to address problem: O2 2L as needed for shortness of breath or desaturation. Albuterol/atrovent aerosol treatments q 6 hours. Continue Prevacid. Recommend DVT prophylaxis. SCDs (2) Altered mental status Current Visit: Yes Status: Acute Qualifiers: Altered mental status type: unspecified Qualified Code(s): R41.82 - Altered mental status, unspecified Plan to address problem: Management as per primary care and neurology. (3) Atrial fibrillation with RVR Current Visit: Yes Status: Acute Plan to address problem: Management as per cardiology. (4) Cardiopulmonary arrest Current Visit: Yes Status: Acute Plan to address problem: Patient resuscitated. Presently resting on room air. O2 saturation 95%.. (5) Acute renal failure Current Visit: Yes Status: Acute Qualifiers: Acute renal failure type: with acute tubular necrosis Qualified Code(s): N17.0 - Acute kidney failure with tubular necrosis Plan to address problem: Management as per nephrology. (6) Aspiration pneumonia Current Visit: Yes Status: Acute Qualifiers: Aspiration pneumonia type: unspecified Plan to address problem: Patient treated with Azactam and zyvox. (7) GI bleed Current Visit: Yes Status: Acute Plan to address problem: Management as per gastroenterology. Subjective Date of service: 05/07/19 Principal diagnosis: Anemia - DVT rt IJ Interval history: Patient awake and more oriented. patient counselled on using O2. O2 saturation is 95% on room air. No acute respiratory distress. Patient afebrile and has leukocytosis. Patients heart rate and blood pressure running good. Patients calcium still high, 10.7. Patient receiving normal saline. According to the patient he is going for upper GI endoscopy tomorrow. Objective Vital Signs - 12hr 05/07/19 05/07/19 05/07/19 06:51 10:00 11:39 Temperature 97.5 F L 97.3 F L Pulse Rate 79 85 Pulse Rate [ 76 From Monitor] Respiratory 20 20 Rate Blood Pressure 152/98 123/75 O2 Sat by Pulse 96 97 Oximetry 05/07/19 16:53 Temperature 97.3 F L Pulse Rate 69 Pulse Rate [ From Monitor] Respiratory 20 Rate Blood Pressure 134/90 O2 Sat by Pulse 95 Oximetry Constitutional: no acute distress, alert, other (middle aged morbidly obese CM, normocephalic with mildly incresed respiratory effort at rest) Eyes: non-icteric ENT: oropharynx moist, other (extubated) Neck: supple, no lymphadenopathy, no JVD, other (large neck circumference) Effort: mildly labored Ascultation: Bilateral: diminished breath sounds, rales, rhonchi (scant) Percussion: Bilateral: not dull Cardiovascular: regular rate and rhythm, other ( S1,S2) Gastrointestinal: normoactive bowel sounds, soft, non-tender, non-distended, other (obese) Integumentary: normal Extremities: no cyanosis, pink and warm, pulses normal, no ischemia or petechiae Neurologic: normal mental status, non-focal exam (grossly), pupils equal and round, CN II-XII normal, other (very weak) Psychiatric: mood appropriate, affect normal CBC and BMP: 05/07/19 05:55 05/07/19 05:55 ABG, PT/INR, D-dimer: ABG POC ABG pH 7.401 (7.35-7.45) 04/07/19 12:57 ABG pH 7.388 pH Units (7.350-7.450) 04/06/19 05:20 POC ABG pCO2 41.5 (35-45) 04/07/19 12:57 ABG pCO2 38.5 mm Hg 04/06/19 05:20 POC ABG pO2 107 (80-105) H 04/07/19 12:57 ABG pO2 104.0 mm Hg (80.0-90.0) H 04/06/19 05:20 POC ABG HCO3 25.7 (22-26 mml/L) 04/07/19 12:57 POC ABG Total CO2 27 (23-27mmol/L) 04/07/19 12:57 POC ABG O2 Sat 98 04/07/19 12:57 ABG O2 Saturation 97.8 % (95.0-99.0) 04/06/19 05:20 PT/INR, D-dimer PT 14.2 Sec. (12.2-14.9) 05/07/19 05:55 INR 1.11 (0.87-1.13) 05/07/19 05:55 D-Dimer 4845.98 ng/mlDDU (0-234) H 03/28/19 12:00 Abnormal lab findings: Abnormal Labs 03/16/19 03/16/19 03/16/19 15:32 16:03 16:05 WBC 27.0 H RBC 5.55 H Hgb 15.7 H Hct 47.1 H MCV MCHC RDW Plt Count 75 L Lymph % (Auto) [place] % (Auto) Eos % (Auto) Lymph # [place] # Eos # Seg Neutrophils % Seg Neuts % (Manual) 85.0 H Lymphocytes % (Manual) 2.0 L Monocytes % (Manual) Nucleated RBC % Seg Neutrophils # Seg Neutrophils # Man 23.0 H Lymphocytes # (Manual) 0.5 L Monocytes # (Manual) PT INR D-Dimer Heparin Anti-Xa Level POC ABG pH ABG pH POC ABG pCO2 POC ABG pO2 ABG pO2 ABG HCO3 ABG O2 Saturation ABG Base Excess ABG Hemoglobin Oxyhemoglobin Sodium 127 L Potassium Chloride 87.8 L Carbon Dioxide 17 L BUN 49 H Creatinine 5.8 H Glucose 150 H POC Glucose 118 H Lactic Acid Calcium 6.6 L Ionized Calcium Phosphorus Magnesium 1.10 L Iron TIBC Ferritin Total Bilirubin Direct Bilirubin AST ALT Alkaline Phosphatase Total Creatine Kinase 92164 H CK-MB (CK-2) Troponin T C-Reactive Protein Serum Total Protein Total Protein Albumin Uutmf-7-Qthrnugoa Xufzu-2-Ekptmlpfm PEP Interpretation Triglycerides LDL Cholesterol Direct HDL Cholesterol Free T4 PTH Intact Urine WBC (Auto) Urine Creatinine Salicylates Acetaminophen Crossmatch 03/16/19 03/16/19 03/16/19 16:59 17:05 17:05 WBC RBC Hgb Hct MCV MCHC RDW Plt Count Lymph % (Auto) [place] % (Auto) Eos % (Auto) Lymph # [place] # Eos # Seg Neutrophils % Seg Neuts % (Manual) Lymphocytes % (Manual) Monocytes % (Manual) Nucleated RBC % Seg Neutrophils # Seg Neutrophils # Man Lymphocytes # (Manual) Monocytes # (Manual) PT INR D-Dimer Heparin Anti-Xa Level POC ABG pH 7.297 L ABG pH POC ABG pCO2 33.0 L POC ABG pO2 ABG pO2 ABG HCO3 ABG O2 Saturation ABG Base Excess ABG Hemoglobin Oxyhemoglobin Sodium Potassium Chloride Carbon Dioxide BUN Creatinine Glucose POC Glucose Lactic Acid Calcium Ionized Calcium Phosphorus Magnesium Iron TIBC Ferritin Total Bilirubin Direct Bilirubin AST ALT Alkaline Phosphatase Total Creatine Kinase 77912 H CK-MB (CK-2) 83.1 H Troponin T C-Reactive Protein Serum Total Protein Total Protein Albumin Xbzys-3-Jvvmfspli Gerto-4-Amsbgtpfm PEP Interpretation Triglycerides LDL Cholesterol Direct HDL Cholesterol Free T4 0.72 L PTH Intact Urine WBC (Auto) Urine Creatinine Salicylates Acetaminophen Crossmatch 03/16/19 03/16/19 03/16/19 17:05 17:05 17:05 WBC RBC Hgb Hct MCV MCHC RDW Plt Count Lymph % (Auto) [place] % (Auto) Eos % (Auto) Lymph # [place] # Eos # Seg Neutrophils % Seg Neuts % (Manual) Lymphocytes % (Manual) Monocytes % (Manual) Nucleated RBC % Seg Neutrophils # Seg Neutrophils # Man Lymphocytes # (Manual) Monocytes # (Manual) PT INR D-Dimer Heparin Anti-Xa Level POC ABG pH ABG pH POC ABG pCO2 POC ABG pO2 ABG pO2 ABG HCO3 ABG O2 Saturation ABG Base Excess ABG Hemoglobin Oxyhemoglobin Sodium Potassium Chloride Carbon Dioxide BUN Creatinine Glucose POC Glucose Lactic Acid 5.10 H* Calcium Ionized Calcium Phosphorus Magnesium Iron TIBC Ferritin Total Bilirubin Direct Bilirubin AST ALT Alkaline Phosphatase Total Creatine Kinase CK-MB (CK-2) Troponin T C-Reactive Protein Serum Total Protein Total Protein Albumin Ifaoq-2-Zgfuzdnih Ebyuw-5-Tzquxrort PEP Interpretation Triglycerides LDL Cholesterol Direct HDL Cholesterol Free T4 PTH Intact Urine WBC (Auto) Urine Creatinine Salicylates < 0.3 L Acetaminophen < 5.0 L Crossmatch 03/16/19 03/16/19 03/16/19 17:05 17:05 20:35 WBC RBC Hgb Hct MCV MCHC RDW Plt Count Lymph % (Auto) [place] % (Auto) Eos % (Auto) Lymph # [place] # Eos # Seg Neutrophils % Seg Neuts % (Manual) Lymphocytes % (Manual) Monocytes % (Manual) Nucleated RBC % Seg Neutrophils # Seg Neutrophils # Man Lymphocytes # (Manual) Monocytes # (Manual) PT 15.9 H INR 1.30 H D-Dimer Heparin Anti-Xa Level POC ABG pH ABG pH POC ABG pCO2 POC ABG pO2 ABG pO2 ABG HCO3 ABG O2 Saturation ABG Base Excess ABG Hemoglobin Oxyhemoglobin Sodium Potassium Chloride Carbon Dioxide BUN Creatinine Glucose POC Glucose Lactic Acid 3.30 H* Calcium Ionized Calcium Phosphorus Magnesium Iron TIBC Ferritin Total Bilirubin 6.20 H Direct Bilirubin 5.9 H AST 800 H ALT 120 H Alkaline Phosphatase Total Creatine Kinase CK-MB (CK-2) Troponin T C-Reactive Protein Serum Total Protein Total Protein 4.4 L Albumin 2.4 L Wqnai-5-Mijdcakwf Fxpsa-6-Niwfuwubv PEP Interpretation Triglycerides LDL Cholesterol Direct HDL Cholesterol Free T4 PTH Intact Urine WBC (Auto) Urine Creatinine Salicylates Acetaminophen Crossmatch 03/16/19 03/16/19 03/16/19 21:45 22:32 Unknown WBC RBC Hgb Hct MCV MCHC RDW Plt Count Lymph % (Auto) [place] % (Auto) Eos % (Auto) Lymph # [place] # Eos # Seg Neutrophils % Seg Neuts % (Manual) Lymphocytes % (Manual) Monocytes % (Manual) Nucleated RBC % Seg Neutrophils # Seg Neutrophils # Man Lymphocytes # (Manual) Monocytes # (Manual) PT INR D-Dimer Heparin Anti-Xa Level POC ABG pH ABG pH POC ABG pCO2 POC ABG pO2 ABG pO2 ABG HCO3 ABG O2 Saturation ABG Base Excess ABG Hemoglobin Oxyhemoglobin Sodium Potassium Chloride Carbon Dioxide BUN Creatinine Glucose POC Glucose Lactic Acid 3.30 H* 3.00 H* Calcium Ionized Calcium Phosphorus Magnesium Iron TIBC Ferritin Total Bilirubin Direct Bilirubin AST ALT Alkaline Phosphatase Total Creatine Kinase CK-MB (CK-2) Troponin T 0.047 H D C-Reactive Protein Serum Total Protein Total Protein Albumin Svwaf-2-Pgppkzltw Jncpn-6-Lxxzffhwg PEP Interpretation Triglycerides 395 H LDL Cholesterol Direct 10 L HDL Cholesterol 7 L Free T4 PTH Intact Urine WBC (Auto) Urine Creatinine Salicylates Acetaminophen Crossmatch 03/17/19 03/17/19 03/17/19 03:45 03:45 03:45 WBC RBC Hgb Hct MCV MCHC RDW Plt Count Lymph % (Auto) [place] % (Auto) Eos % (Auto) Lymph # [place] # Eos # Seg Neutrophils % Seg Neuts % (Manual) Lymphocytes % (Manual) Monocytes % (Manual) Nucleated RBC % Seg Neutrophils # Seg Neutrophils # Man Lymphocytes # (Manual) Monocytes # (Manual) PT INR D-Dimer Heparin Anti-Xa Level POC ABG pH ABG pH POC ABG pCO2 POC ABG pO2 ABG pO2 ABG HCO3 ABG O2 Saturation ABG Base Excess ABG Hemoglobin Oxyhemoglobin Sodium 131 L Potassium Chloride 88.9 L Carbon Dioxide BUN 53 H Creatinine 7.1 H Glucose POC Glucose Lactic Acid 4.10 H* Calcium 5.4 L* D Ionized Calcium Phosphorus 7.30 H Magnesium 1.60 L Iron TIBC Ferritin Total Bilirubin 5.90 H Direct Bilirubin AST 801 H ALT 109 H Alkaline Phosphatase Total Creatine Kinase 12242 H 07000 H CK-MB (CK-2) 41.5 H Troponin T 0.054 H C-Reactive Protein Serum Total Protein Total Protein 4.5 L Albumin 2.0 L Huczg-4-Spoyvpvtk Nhfib-7-Hocadhfff PEP Interpretation Triglycerides LDL Cholesterol Direct HDL Cholesterol Free T4 PTH Intact Urine WBC (Auto) Urine Creatinine Salicylates Acetaminophen Crossmatch 03/17/19 03/17/19 03/17/19 05:47 07:16 07:16 WBC RBC Hgb Hct MCV MCHC RDW Plt Count Lymph % (Auto) [place] % (Auto) Eos % (Auto) Lymph # [place] # Eos # Seg Neutrophils % Seg Neuts % (Manual) Lymphocytes % (Manual) Monocytes % (Manual) Nucleated RBC % Seg Neutrophils # Seg Neutrophils # Man Lymphocytes # (Manual) Monocytes # (Manual) PT INR D-Dimer Heparin Anti-Xa Level POC ABG pH 7.193 L ABG pH POC ABG pCO2 45.2 H POC ABG pO2 65 L ABG pO2 ABG HCO3 ABG O2 Saturation ABG Base Excess ABG Hemoglobin Oxyhemoglobin Sodium Potassium Chloride Carbon Dioxide BUN Creatinine Glucose POC Glucose Lactic Acid 5.50 H* Calcium Ionized Calcium Phosphorus Magnesium Iron TIBC Ferritin Total Bilirubin Direct Bilirubin AST ALT Alkaline Phosphatase Total Creatine Kinase 67164 H CK-MB (CK-2) 54.3 H Troponin T 0.058 H C-Reactive Protein Serum Total Protein Total Protein Albumin Niewv-7-Ixsixqilu Vxmzt-5-Azrjmuqzl PEP Interpretation Triglycerides LDL Cholesterol Direct HDL Cholesterol Free T4 PTH Intact Urine WBC (Auto) Urine Creatinine Salicylates Acetaminophen Crossmatch 03/17/19 03/17/19 03/17/19 11:52 12:51 13:01 WBC RBC Hgb Hct MCV MCHC RDW Plt Count Lymph % (Auto) [place] % (Auto) Eos % (Auto) Lymph # [place] # Eos # Seg Neutrophils % Seg Neuts % (Manual) Lymphocytes % (Manual) Monocytes % (Manual) Nucleated RBC % Seg Neutrophils # Seg Neutrophils # Man Lymphocytes # (Manual) Monocytes # (Manual) PT INR D-Dimer Heparin Anti-Xa Level POC ABG pH 7.154 L ABG pH POC ABG pCO2 34.3 L POC ABG pO2 73 L ABG pO2 ABG HCO3 ABG O2 Saturation ABG Base Excess ABG Hemoglobin Oxyhemoglobin Sodium Potassium Chloride Carbon Dioxide BUN Creatinine Glucose POC Glucose 60 L Lactic Acid 8.20 H* Calcium Ionized Calcium Phosphorus Magnesium Iron TIBC Ferritin Total Bilirubin Direct Bilirubin AST ALT Alkaline Phosphatase Total Creatine Kinase CK-MB (CK-2) Troponin T C-Reactive Protein Serum Total Protein Total Protein Albumin Ryzou-0-Yhisbpmnb Qhgmf-7-Pefvkupon PEP Interpretation Triglycerides LDL Cholesterol Direct HDL Cholesterol Free T4 PTH Intact Urine WBC (Auto) Urine Creatinine Salicylates Acetaminophen Crossmatch 03/17/19 03/17/19 03/17/19 14:37 14:37 14:37 WBC 29.3 H RBC Hgb Hct MCV MCHC RDW 15.8 H Plt Count 45 L Lymph % (Auto) [place] % (Auto) Eos % (Auto) Lymph # [place] # Eos # Seg Neutrophils % Seg Neuts % (Manual) 81.0 H Lymphocytes % (Manual) 1.0 L Monocytes % (Manual) 15.0 H Nucleated RBC % Seg Neutrophils # Seg Neutrophils # Man 23.7 H Lymphocytes # (Manual) 0.3 L Monocytes # (Manual) 4.4 H PT INR D-Dimer Heparin Anti-Xa Level POC ABG pH ABG pH POC ABG pCO2 POC ABG pO2 ABG pO2 ABG HCO3 ABG O2 Saturation ABG Base Excess ABG Hemoglobin Oxyhemoglobin Sodium Potassium Chloride Carbon Dioxide BUN Creatinine Glucose POC Glucose Lactic Acid 4.90 H* Calcium Ionized Calcium Phosphorus Magnesium Iron TIBC Ferritin Total Bilirubin Direct Bilirubin AST ALT Alkaline Phosphatase Total Creatine Kinase CK-MB (CK-2) Troponin T C-Reactive Protein 24.90 H Serum Total Protein Total Protein Albumin Zbkqm-8-Sgadfhfjz Yymzi-7-Tgttgsylz PEP Interpretation Triglycerides LDL Cholesterol Direct HDL Cholesterol Free T4 PTH Intact Urine WBC (Auto) Urine Creatinine Salicylates Acetaminophen Crossmatch 03/17/19 03/17/19 03/17/19 16:05 16:05 17:02 WBC RBC Hgb Hct MCV MCHC RDW Plt Count Lymph % (Auto) [place] % (Auto) Eos % (Auto) Lymph # [place] # Eos # Seg Neutrophils % Seg Neuts % (Manual) Lymphocytes % (Manual) Monocytes % (Manual) Nucleated RBC % Seg Neutrophils # Seg Neutrophils # Man Lymphocytes # (Manual) Monocytes # (Manual) PT INR D-Dimer Heparin Anti-Xa Level POC ABG pH 7.183 L ABG pH POC ABG pCO2 POC ABG pO2 65 L ABG pO2 ABG HCO3 ABG O2 Saturation ABG Base Excess ABG Hemoglobin Oxyhemoglobin Sodium Potassium Chloride Carbon Dioxide BUN Creatinine Glucose POC Glucose Lactic Acid Calcium Ionized Calcium Phosphorus Magnesium Iron TIBC Ferritin Total Bilirubin Direct Bilirubin AST ALT Alkaline Phosphatase Total Creatine Kinase CK-MB (CK-2) Troponin T C-Reactive Protein Serum Total Protein Total Protein Albumin Lvpzp-9-Zdlyiqamc Tdurw-5-Typarklci PEP Interpretation Triglycerides LDL Cholesterol Direct HDL Cholesterol Free T4 PTH Intact Urine WBC (Auto) 30.0 H Urine Creatinine 106.6 H Salicylates Acetaminophen Crossmatch 03/18/19 03/18/19 03/18/19 05:12 05:16 05:53 WBC RBC Hgb Hct MCV MCHC RDW Plt Count Lymph % (Auto) [place] % (Auto) Eos % (Auto) Lymph # [place] # Eos # Seg Neutrophils % Seg Neuts % (Manual) Lymphocytes % (Manual) Monocytes % (Manual) Nucleated RBC % Seg Neutrophils # Seg Neutrophils # Man Lymphocytes # (Manual) Monocytes # (Manual) PT INR D-Dimer Heparin Anti-Xa Level POC ABG pH 7.257 L ABG pH POC ABG pCO2 31.6 L POC ABG pO2 69 L ABG pO2 ABG HCO3 ABG O2 Saturation ABG Base Excess ABG Hemoglobin Oxyhemoglobin Sodium Potassium Chloride Carbon Dioxide BUN Creatinine Glucose POC Glucose 141 H Lactic Acid 5.00 H* Calcium Ionized Calcium Phosphorus Magnesium Iron TIBC Ferritin Total Bilirubin Direct Bilirubin AST ALT Alkaline Phosphatase Total Creatine Kinase CK-MB (CK-2) Troponin T C-Reactive Protein Serum Total Protein Total Protein Albumin Dvgwg-4-Stlkcjosi Beuqm-6-Ftuaobozd PEP Interpretation Triglycerides LDL Cholesterol Direct HDL Cholesterol Free T4 PTH Intact Urine WBC (Auto) Urine Creatinine Salicylates Acetaminophen Crossmatch 03/18/19 03/18/19 03/18/19 06:57 08:40 08:40 WBC 31.7 H RBC Hgb Hct MCV MCHC RDW 15.5 H Plt Count 35 L Lymph % (Auto) [place] % (Auto) Eos % (Auto) Lymph # [place] # Eos # Seg Neutrophils % Seg Neuts % (Manual) Lymphocytes % (Manual) Monocytes % (Manual) Nucleated RBC % Seg Neutrophils # Seg Neutrophils # Man Lymphocytes # (Manual) Monocytes # (Manual) PT INR D-Dimer Heparin Anti-Xa Level POC ABG pH ABG pH POC ABG pCO2 POC ABG pO2 ABG pO2 ABG HCO3 ABG O2 Saturation ABG Base Excess ABG Hemoglobin Oxyhemoglobin Sodium 132 L Potassium 5.5 H D Chloride 88.5 L Carbon Dioxide 18 L BUN 71 H Creatinine 8.1 H Glucose 205 H POC Glucose Lactic Acid 5.00 H* Calcium 4.1 L* D Ionized Calcium Phosphorus Magnesium 2.40 H Iron TIBC Ferritin Total Bilirubin 7.50 H Direct Bilirubin AST 1088 H ALT 159 H Alkaline Phosphatase 190 H Total Creatine Kinase 086454 H CK-MB (CK-2) Troponin T C-Reactive Protein Serum Total Protein Total Protein 4.7 L Albumin 1.8 L Jserd-5-Zueqyurar Eumpj-9-Ibqgqrhur PEP Interpretation Triglycerides LDL Cholesterol Direct HDL Cholesterol Free T4 PTH Intact Urine WBC (Auto) Urine Creatinine Salicylates Acetaminophen Crossmatch 03/18/19 03/18/19 03/18/19 12:33 12:50 13:19 WBC RBC Hgb Hct MCV MCHC RDW Plt Count Lymph % (Auto) [place] % (Auto) Eos % (Auto) Lymph # [place] # Eos # Seg Neutrophils % Seg Neuts % (Manual) Lymphocytes % (Manual) Monocytes % (Manual) Nucleated RBC % Seg Neutrophils # Seg Neutrophils # Man Lymphocytes # (Manual) Monocytes # (Manual) PT INR D-Dimer Heparin Anti-Xa Level POC ABG pH 7.282 L ABG pH POC ABG pCO2 POC ABG pO2 67 L ABG pO2 ABG HCO3 ABG O2 Saturation ABG Base Excess ABG Hemoglobin Oxyhemoglobin Sodium Potassium Chloride Carbon Dioxide BUN Creatinine Glucose POC Glucose 129 H Lactic Acid 3.30 H* Calcium Ionized Calcium Phosphorus Magnesium Iron TIBC Ferritin Total Bilirubin Direct Bilirubin AST ALT Alkaline Phosphatase Total Creatine Kinase CK-MB (CK-2) Troponin T C-Reactive Protein Serum Total Protein Total Protein Albumin Orzyx-3-Qgnslzphq Begui-6-Jujfbyswk PEP Interpretation Triglycerides LDL Cholesterol Direct HDL Cholesterol Free T4 PTH Intact Urine WBC (Auto) Urine Creatinine Salicylates Acetaminophen Crossmatch 03/18/19 03/18/19 03/18/19 13:19 16:50 18:11 WBC RBC Hgb Hct MCV MCHC RDW Plt Count Lymph % (Auto) [place] % (Auto) Eos % (Auto) Lymph # [place] # Eos # Seg Neutrophils % Seg Neuts % (Manual) Lymphocytes % (Manual) Monocytes % (Manual) Nucleated RBC % Seg Neutrophils # Seg Neutrophils # Man Lymphocytes # (Manual) Monocytes # (Manual) PT INR D-Dimer Heparin Anti-Xa Level POC ABG pH ABG pH POC ABG pCO2 POC ABG pO2 59 L ABG pO2 ABG HCO3 ABG O2 Saturation ABG Base Excess ABG Hemoglobin Oxyhemoglobin Sodium Potassium Chloride Carbon Dioxide BUN Creatinine Glucose POC Glucose 151 H Lactic Acid Calcium 4.2 L* Ionized Calcium Phosphorus Magnesium Iron TIBC Ferritin Total Bilirubin Direct Bilirubin AST ALT Alkaline Phosphatase Total Creatine Kinase 163350 H CK-MB (CK-2) Troponin T C-Reactive Protein Serum Total Protein Total Protein Albumin Mdged-1-Paolwvyld Suzrz-4-Aywqhphwc PEP Interpretation Triglycerides LDL Cholesterol Direct HDL Cholesterol Free T4 PTH Intact Urine WBC (Auto) Urine Creatinine Salicylates Acetaminophen Crossmatch 03/18/19 03/18/19 03/19/19 18:20 23:39 01:42 WBC RBC Hgb Hct MCV MCHC RDW Plt Count Lymph % (Auto) [place] % (Auto) Eos % (Auto) Lymph # [place] # Eos # Seg Neutrophils % Seg Neuts % (Manual) Lymphocytes % (Manual) Monocytes % (Manual) Nucleated RBC % Seg Neutrophils # Seg Neutrophils # Man Lymphocytes # (Manual) Monocytes # (Manual) PT INR D-Dimer Heparin Anti-Xa Level POC ABG pH 7.345 L ABG pH 7.285 L POC ABG pCO2 POC ABG pO2 59 L ABG pO2 44.0 L ABG HCO3 ABG O2 Saturation 70.9 L ABG Base Excess -5.7 L ABG Hemoglobin 11.9 L Oxyhemoglobin 69.6 L Sodium Potassium Chloride Carbon Dioxide BUN Creatinine Glucose POC Glucose 152 H Lactic Acid Calcium Ionized Calcium Phosphorus Magnesium Iron TIBC Ferritin Total Bilirubin Direct Bilirubin AST ALT Alkaline Phosphatase Total Creatine Kinase CK-MB (CK-2) Troponin T C-Reactive Protein Serum Total Protein Total Protein Albumin Qzchk-4-Rlgjzuprf Vhvsg-3-Xtznhnnpl PEP Interpretation Triglycerides LDL Cholesterol Direct HDL Cholesterol Free T4 PTH Intact Urine WBC (Auto) Urine Creatinine Salicylates Acetaminophen Crossmatch 03/19/19 03/19/19 03/19/19 04:00 04:00 05:35 WBC 36.5 H RBC Hgb Hct MCV MCHC RDW 15.8 H Plt Count 35 L Lymph % (Auto) [place] % (Auto) Eos % (Auto) Lymph # [place] # Eos # Seg Neutrophils % Seg Neuts % (Manual) Lymphocytes % (Manual) Monocytes % (Manual) Nucleated RBC % Seg Neutrophils # Seg Neutrophils # Man Lymphocytes # (Manual) Monocytes # (Manual) PT INR D-Dimer Heparin Anti-Xa Level POC ABG pH ABG pH 7.265 L POC ABG pCO2 POC ABG pO2 ABG pO2 35.4 L* ABG HCO3 ABG O2 Saturation 54.4 L ABG Base Excess -6.7 L ABG Hemoglobin 12.9 L Oxyhemoglobin 53.4 L Sodium 132 L Potassium 5.7 H Chloride 89.8 L Carbon Dioxide 19 L BUN 62 H Creatinine 6.4 H Glucose 151 H POC Glucose Lactic Acid Calcium 5.2 L* D Ionized Calcium Phosphorus Magnesium Iron TIBC Ferritin Total Bilirubin 7.80 H Direct Bilirubin AST 682 H ALT 130 H Alkaline Phosphatase 167 H Total Creatine Kinase CK-MB (CK-2) Troponin T C-Reactive Protein Serum Total Protein Total Protein 4.8 L Albumin 2.3 L Umosi-5-Jaoctqmgm Diofm-5-Nlcouytzr PEP Interpretation Triglycerides LDL Cholesterol Direct HDL Cholesterol Free T4 PTH Intact Urine WBC (Auto) Urine Creatinine Salicylates Acetaminophen Crossmatch 03/19/19 03/19/19 03/19/19 05:49 09:16 09:50 WBC RBC Hgb Hct MCV MCHC RDW Plt Count Lymph % (Auto) [place] % (Auto) Eos % (Auto) Lymph # [place] # Eos # Seg Neutrophils % Seg Neuts % (Manual) Lymphocytes % (Manual) Monocytes % (Manual) Nucleated RBC % Seg Neutrophils # Seg Neutrophils # Man Lymphocytes # (Manual) Monocytes # (Manual) PT INR D-Dimer Heparin Anti-Xa Level POC ABG pH 7.222 L ABG pH POC ABG pCO2 56.6 H POC ABG pO2 ABG pO2 ABG HCO3 ABG O2 Saturation ABG Base Excess ABG Hemoglobin Oxyhemoglobin Sodium Potassium Chloride Carbon Dioxide BUN Creatinine Glucose POC Glucose 154 H Lactic Acid 2.70 H* Calcium Ionized Calcium Phosphorus Magnesium Iron TIBC Ferritin Total Bilirubin Direct Bilirubin AST ALT Alkaline Phosphatase Total Creatine Kinase CK-MB (CK-2) Troponin T C-Reactive Protein Serum Total Protein Total Protein Albumin Vogsg-1-Tpylegcpl Busyg-6-Kjjaktzsz PEP Interpretation Triglycerides LDL Cholesterol Direct HDL Cholesterol Free T4 PTH Intact Urine WBC (Auto) Urine Creatinine Salicylates Acetaminophen Crossmatch 03/19/19 03/19/19 03/19/19 09:50 11:28 17:58 WBC RBC Hgb Hct MCV MCHC RDW Plt Count Lymph % (Auto) [place] % (Auto) Eos % (Auto) Lymph # [place] # Eos # Seg Neutrophils % Seg Neuts % (Manual) Lymphocytes % (Manual) Monocytes % (Manual) Nucleated RBC % Seg Neutrophils # Seg Neutrophils # Man Lymphocytes # (Manual) Monocytes # (Manual) PT INR D-Dimer Heparin Anti-Xa Level POC ABG pH 7.250 L ABG pH POC ABG pCO2 52.6 H POC ABG pO2 ABG pO2 ABG HCO3 ABG O2 Saturation ABG Base Excess ABG Hemoglobin Oxyhemoglobin Sodium Potassium Chloride Carbon Dioxide BUN Creatinine Glucose POC Glucose 160 H Lactic Acid Calcium Ionized Calcium Phosphorus Magnesium Iron TIBC Ferritin Total Bilirubin Direct Bilirubin AST ALT Alkaline Phosphatase Total Creatine Kinase 96658 H CK-MB (CK-2) Troponin T C-Reactive Protein Serum Total Protein Total Protein Albumin Arkao-0-Ctwafqlop Lkuxi-9-Imyhzvmyl PEP Interpretation Triglycerides LDL Cholesterol Direct HDL Cholesterol Free T4 PTH Intact Urine WBC (Auto) Urine Creatinine Salicylates Acetaminophen Crossmatch 03/19/19 03/19/19 03/20/19 19:48 21:03 02:16 WBC RBC Hgb Hct MCV MCHC RDW Plt Count Lymph % (Auto) [place] % (Auto) Eos % (Auto) Lymph # [place] # Eos # Seg Neutrophils % Seg Neuts % (Manual) Lymphocytes % (Manual) Monocytes % (Manual) Nucleated RBC % Seg Neutrophils # Seg Neutrophils # Man Lymphocytes # (Manual) Monocytes # (Manual) PT INR D-Dimer Heparin Anti-Xa Level POC ABG pH 7.279 L ABG pH POC ABG pCO2 50.3 H POC ABG pO2 129 H ABG pO2 ABG HCO3 ABG O2 Saturation ABG Base Excess ABG Hemoglobin Oxyhemoglobin Sodium Potassium Chloride Carbon Dioxide BUN Creatinine Glucose POC Glucose 119 H 119 H Lactic Acid Calcium Ionized Calcium Phosphorus Magnesium Iron TIBC Ferritin Total Bilirubin Direct Bilirubin AST ALT Alkaline Phosphatase Total Creatine Kinase CK-MB (CK-2) Troponin T C-Reactive Protein Serum Total Protein Total Protein Albumin Sviog-4-Jkjggdumu Emask-6-Lcimckphe PEP Interpretation Triglycerides LDL Cholesterol Direct HDL Cholesterol Free T4 PTH Intact Urine WBC (Auto) Urine Creatinine Salicylates Acetaminophen Crossmatch 03/20/19 03/20/19 03/20/19 04:23 05:05 09:30 WBC 36.3 H RBC Hgb Hct MCV MCHC RDW 15.5 H Plt Count 29 L Lymph % (Auto) [place] % (Auto) Eos % (Auto) Lymph # [place] # Eos # Seg Neutrophils % Seg Neuts % (Manual) Lymphocytes % (Manual) Monocytes % (Manual) Nucleated RBC % Seg Neutrophils # Seg Neutrophils # Man Lymphocytes # (Manual) Monocytes # (Manual) PT INR D-Dimer Heparin Anti-Xa Level POC ABG pH ABG pH POC ABG pCO2 POC ABG pO2 280 H ABG pO2 ABG HCO3 ABG O2 Saturation ABG Base Excess ABG Hemoglobin Oxyhemoglobin Sodium Potassium Chloride Carbon Dioxide BUN Creatinine Glucose POC Glucose 115 H Lactic Acid Calcium Ionized Calcium Phosphorus Magnesium Iron TIBC Ferritin Total Bilirubin Direct Bilirubin AST ALT Alkaline Phosphatase Total Creatine Kinase CK-MB (CK-2) Troponin T C-Reactive Protein Serum Total Protein Total Protein Albumin Sppth-2-Idxtnrngx Wanvh-3-Mimpinabf PEP Interpretation Triglycerides LDL Cholesterol Direct HDL Cholesterol Free T4 PTH Intact Urine WBC (Auto) Urine Creatinine Salicylates Acetaminophen Crossmatch 03/20/19 03/20/19 03/20/19 09:30 09:30 11:34 WBC RBC Hgb Hct MCV MCHC RDW Plt Count Lymph % (Auto) [place] % (Auto) Eos % (Auto) Lymph # [place] # Eos # Seg Neutrophils % Seg Neuts % (Manual) Lymphocytes % (Manual) Monocytes % (Manual) Nucleated RBC % Seg Neutrophils # Seg Neutrophils # Man Lymphocytes # (Manual) Monocytes # (Manual) PT INR D-Dimer Heparin Anti-Xa Level POC ABG pH ABG pH POC ABG pCO2 POC ABG pO2 ABG pO2 ABG HCO3 ABG O2 Saturation ABG Base Excess ABG Hemoglobin Oxyhemoglobin Sodium 131 L Potassium Chloride 92.3 L Carbon Dioxide 20 L BUN 68 H Creatinine 6.1 H Glucose 164 H POC Glucose 141 H Lactic Acid Calcium 5.3 L* Ionized Calcium Phosphorus Magnesium Iron TIBC Ferritin Total Bilirubin 9.50 H Direct Bilirubin AST 381 H ALT 116 H Alkaline Phosphatase 255 H Total Creatine Kinase 09517 H CK-MB (CK-2) Troponin T C-Reactive Protein Serum Total Protein Total Protein 5.1 L Albumin 2.3 L Xqgni-2-Ijsruazao Ocpok-3-Uxarpoktp PEP Interpretation Triglycerides LDL Cholesterol Direct HDL Cholesterol Free T4 PTH Intact Urine WBC (Auto) Urine Creatinine Salicylates Acetaminophen Crossmatch 03/20/19 03/20/19 03/20/19 14:41 14:45 18:50 WBC RBC Hgb Hct MCV MCHC RDW Plt Count Lymph % (Auto) [place] % (Auto) Eos % (Auto) Lymph # [place] # Eos # Seg Neutrophils % Seg Neuts % (Manual) Lymphocytes % (Manual) Monocytes % (Manual) Nucleated RBC % Seg Neutrophils # Seg Neutrophils # Man Lymphocytes # (Manual) Monocytes # (Manual) PT INR D-Dimer Heparin Anti-Xa Level POC ABG pH ABG pH POC ABG pCO2 POC ABG pO2 ABG pO2 ABG HCO3 ABG O2 Saturation ABG Base Excess ABG Hemoglobin Oxyhemoglobin Sodium Potassium Chloride Carbon Dioxide BUN Creatinine Glucose POC Glucose 117 H Lactic Acid 2.90 H* Calcium Ionized Calcium Phosphorus Magnesium Iron TIBC Ferritin Total Bilirubin Direct Bilirubin AST ALT Alkaline Phosphatase Total Creatine Kinase CK-MB (CK-2) Troponin T C-Reactive Protein 13.30 H Serum Total Protein Total Protein Albumin Nbalx-4-Abozalehw Jtzad-9-Zbbnsrlxx PEP Interpretation Triglycerides LDL Cholesterol Direct HDL Cholesterol Free T4 PTH Intact Urine WBC (Auto) Urine Creatinine Salicylates Acetaminophen Crossmatch 03/20/19 03/21/19 03/21/19 21:55 04:26 04:26 WBC 37.8 H RBC Hgb Hct MCV MCHC RDW 15.4 H Plt Count 36 L Lymph % (Auto) [place] % (Auto) Eos % (Auto) Lymph # [place] # Eos # Seg Neutrophils % Seg Neuts % (Manual) 93.0 H Lymphocytes % (Manual) 3.0 L Monocytes % (Manual) Nucleated RBC % 1.0 H Seg Neutrophils # 34.6 H Seg Neutrophils # Man 35.2 H Lymphocytes # (Manual) 1.1 L Monocytes # (Manual) PT INR D-Dimer Heparin Anti-Xa Level POC ABG pH ABG pH POC ABG pCO2 POC ABG pO2 ABG pO2 ABG HCO3 ABG O2 Saturation ABG Base Excess ABG Hemoglobin Oxyhemoglobin Sodium 131 L Potassium Chloride 90.7 L Carbon Dioxide 21 L BUN 69 H Creatinine 5.7 H Glucose 170 H POC Glucose 128 H Lactic Acid Calcium 6.1 L D Ionized Calcium Phosphorus Magnesium Iron TIBC Ferritin Total Bilirubin 9.50 H Direct Bilirubin AST 308 H ALT 124 H Alkaline Phosphatase 327 H Total Creatine Kinase 41619 H CK-MB (CK-2) Troponin T C-Reactive Protein Serum Total Protein Total Protein 5.7 L Albumin 2.6 L Conzg-0-Zhsoysdlj Edpyg-8-Ugsolfsyq PEP Interpretation Triglycerides LDL Cholesterol Direct HDL Cholesterol Free T4 PTH Intact Urine WBC (Auto) Urine Creatinine Salicylates Acetaminophen Crossmatch 03/21/19 03/21/19 03/21/19 05:17 05:39 08:29 WBC RBC Hgb Hct MCV MCHC RDW Plt Count Lymph % (Auto) [place] % (Auto) Eos % (Auto) Lymph # [place] # Eos # Seg Neutrophils % Seg Neuts % (Manual) Lymphocytes % (Manual) Monocytes % (Manual) Nucleated RBC % Seg Neutrophils # Seg Neutrophils # Man Lymphocytes # (Manual) Monocytes # (Manual) PT INR D-Dimer Heparin Anti-Xa Level POC ABG pH ABG pH POC ABG pCO2 POC ABG pO2 209 H ABG pO2 ABG HCO3 ABG O2 Saturation ABG Base Excess ABG Hemoglobin Oxyhemoglobin Sodium Potassium Chloride Carbon Dioxide BUN Creatinine Glucose POC Glucose 145 H Lactic Acid Calcium Ionized Calcium Phosphorus Magnesium Iron TIBC Ferritin Total Bilirubin Direct Bilirubin AST ALT Alkaline Phosphatase Total Creatine Kinase 95219 H CK-MB (CK-2) Troponin T C-Reactive Protein Serum Total Protein Total Protein Albumin Dzcbq-5-Nouryddhj Dhymj-0-Hsanztzkh PEP Interpretation Triglycerides LDL Cholesterol Direct HDL Cholesterol Free T4 PTH Intact Urine WBC (Auto) Urine Creatinine Salicylates Acetaminophen Crossmatch 03/21/19 03/21/19 03/21/19 08:29 11:43 12:00 WBC RBC Hgb Hct MCV MCHC RDW Plt Count Lymph % (Auto) [place] % (Auto) Eos % (Auto) Lymph # [place] # Eos # Seg Neutrophils % Seg Neuts % (Manual) Lymphocytes % (Manual) Monocytes % (Manual) Nucleated RBC % Seg Neutrophils # Seg Neutrophils # Man Lymphocytes # (Manual) Monocytes # (Manual) PT INR D-Dimer Heparin Anti-Xa Level POC ABG pH ABG pH POC ABG pCO2 POC ABG pO2 ABG pO2 ABG HCO3 ABG O2 Saturation ABG Base Excess ABG Hemoglobin Oxyhemoglobin Sodium Potassium Chloride Carbon Dioxide BUN Creatinine Glucose POC Glucose 123 H Lactic Acid 2.60 H* 2.20 H* Calcium Ionized Calcium Phosphorus Magnesium Iron TIBC Ferritin Total Bilirubin Direct Bilirubin AST ALT Alkaline Phosphatase Total Creatine Kinase CK-MB (CK-2) Troponin T C-Reactive Protein Serum Total Protein Total Protein Albumin Saagq-6-Mgvpwuvnj Wnxyw-5-Nvqojeaaw PEP Interpretation Triglycerides LDL Cholesterol Direct HDL Cholesterol Free T4 PTH Intact Urine WBC (Auto) Urine Creatinine Salicylates Acetaminophen Crossmatch 03/21/19 03/21/19 03/21/19 14:11 18:28 19:32 WBC RBC Hgb Hct MCV MCHC RDW Plt Count Lymph % (Auto) [place] % (Auto) Eos % (Auto) Lymph # [place] # Eos # Seg Neutrophils % Seg Neuts % (Manual) Lymphocytes % (Manual) Monocytes % (Manual) Nucleated RBC % Seg Neutrophils # Seg Neutrophils # Man Lymphocytes # (Manual) Monocytes # (Manual) PT INR D-Dimer Heparin Anti-Xa Level POC ABG pH 7.293 L ABG pH POC ABG pCO2 POC ABG pO2 ABG pO2 ABG HCO3 ABG O2 Saturation ABG Base Excess ABG Hemoglobin Oxyhemoglobin Sodium Potassium Chloride Carbon Dioxide BUN Creatinine Glucose POC Glucose 153 H Lactic Acid 2.10 H* Calcium Ionized Calcium Phosphorus Magnesium Iron TIBC Ferritin Total Bilirubin Direct Bilirubin AST ALT Alkaline Phosphatase Total Creatine Kinase CK-MB (CK-2) Troponin T C-Reactive Protein Serum Total Protein Total Protein Albumin Ejlqd-0-Sfzzqzunq Aqozt-6-Hhvbrmyku PEP Interpretation Triglycerides LDL Cholesterol Direct HDL Cholesterol Free T4 PTH Intact Urine WBC (Auto) Urine Creatinine Salicylates Acetaminophen Crossmatch 03/21/19 03/22/19 03/22/19 23:38 05:08 05:51 WBC RBC Hgb Hct MCV MCHC RDW Plt Count Lymph % (Auto) [place] % (Auto) Eos % (Auto) Lymph # [place] # Eos # Seg Neutrophils % Seg Neuts % (Manual) Lymphocytes % (Manual) Monocytes % (Manual) Nucleated RBC % Seg Neutrophils # Seg Neutrophils # Man Lymphocytes # (Manual) Monocytes # (Manual) PT INR D-Dimer Heparin Anti-Xa Level POC ABG pH 7.283 L ABG pH POC ABG pCO2 POC ABG pO2 53 L ABG pO2 ABG HCO3 ABG O2 Saturation ABG Base Excess ABG Hemoglobin Oxyhemoglobin Sodium Potassium Chloride Carbon Dioxide BUN Creatinine Glucose POC Glucose 149 H 131 H Lactic Acid Calcium Ionized Calcium Phosphorus Magnesium Iron TIBC Ferritin Total Bilirubin Direct Bilirubin AST ALT Alkaline Phosphatase Total Creatine Kinase CK-MB (CK-2) Troponin T C-Reactive Protein Serum Total Protein Total Protein Albumin Eiyty-3-Qjgbdrjpj Qhzcm-8-Qzckpdmkr PEP Interpretation Triglycerides LDL Cholesterol Direct HDL Cholesterol Free T4 PTH Intact Urine WBC (Auto) Urine Creatinine Salicylates Acetaminophen Crossmatch 03/22/19 03/22/19 03/22/19 08:00 08:00 18:19 WBC 36.7 H RBC Hgb 11.0 L Hct 33.5 L MCV MCHC RDW 15.5 H Plt Count 43 L Lymph % (Auto) [place] % (Auto) Eos % (Auto) Lymph # [place] # Eos # Seg Neutrophils % Seg Neuts % (Manual) 87.0 H Lymphocytes % (Manual) 7.0 L Monocytes % (Manual) Nucleated RBC % Seg Neutrophils # Seg Neutrophils # Man 31.9 H Lymphocytes # (Manual) Monocytes # (Manual) PT INR D-Dimer Heparin Anti-Xa Level POC ABG pH ABG pH POC ABG pCO2 46.4 H POC ABG pO2 108 H ABG pO2 ABG HCO3 ABG O2 Saturation ABG Base Excess ABG Hemoglobin Oxyhemoglobin Sodium 132 L Potassium 5.6 H Chloride 89.6 L Carbon Dioxide 20 L BUN 101 H Creatinine 7.4 H Glucose 124 H POC Glucose Lactic Acid Calcium 5.2 L* Ionized Calcium Phosphorus Magnesium Iron TIBC Ferritin Total Bilirubin 2.80 H Direct Bilirubin AST 119 H ALT 86 H Alkaline Phosphatase 245 H Total Creatine Kinase CK-MB (CK-2) Troponin T C-Reactive Protein Serum Total Protein Total Protein 5.6 L Albumin 2.5 L Vyhwd-1-Jorqzujkx Tcqfk-0-Imkvzcdxd PEP Interpretation Triglycerides LDL Cholesterol Direct HDL Cholesterol Free T4 PTH Intact Urine WBC (Auto) Urine Creatinine Salicylates Acetaminophen Crossmatch 03/22/19 03/23/19 03/23/19 20:37 04:49 05:28 WBC 35.9 H RBC Hgb 10.8 L Hct 33.2 L MCV MCHC RDW 15.5 H Plt Count 49 L Lymph % (Auto) [place] % (Auto) Eos % (Auto) Lymph # [place] # Eos # Seg Neutrophils % Seg Neuts % (Manual) 81.0 H Lymphocytes % (Manual) 3.5 L Monocytes % (Manual) Nucleated RBC % Seg Neutrophils # Seg Neutrophils # Man 29.1 H Lymphocytes # (Manual) Monocytes # (Manual) 1.4 H PT INR D-Dimer Heparin Anti-Xa Level POC ABG pH 7.296 L ABG pH POC ABG pCO2 46.2 H POC ABG pO2 ABG pO2 ABG HCO3 ABG O2 Saturation ABG Base Excess ABG Hemoglobin Oxyhemoglobin Sodium 129 L Potassium 5.2 H Chloride 91.1 L Carbon Dioxide BUN 91 H Creatinine 6.6 H Glucose 190 H POC Glucose Lactic Acid Calcium 5.3 L* Ionized Calcium Phosphorus Magnesium Iron TIBC Ferritin Total Bilirubin 1.80 H Direct Bilirubin AST 80 H ALT 62 H Alkaline Phosphatase 209 H Total Creatine Kinase 9758 H CK-MB (CK-2) Troponin T C-Reactive Protein Serum Total Protein Total Protein 5.2 L Albumin 2.2 L Dgrzg-6-Bpoepvvus Xlczb-2-Mpxgbplak PEP Interpretation Triglycerides LDL Cholesterol Direct HDL Cholesterol Free T4 PTH Intact Urine WBC (Auto) Urine Creatinine Salicylates Acetaminophen Crossmatch 03/23/19 03/23/19 03/23/19 05:28 05:31 11:33 WBC 29.7 H RBC 3.59 L Hgb 10.1 L Hct 31.1 L MCV MCHC RDW 15.4 H Plt Count 47 L Lymph % (Auto) [place] % (Auto) Eos % (Auto) Lymph # [place] # Eos # Seg Neutrophils % Seg Neuts % (Manual) 89.0 H Lymphocytes % (Manual) 6.0 L Monocytes % (Manual) Nucleated RBC % 1.0 H Seg Neutrophils # Seg Neutrophils # Man 26.4 H Lymphocytes # (Manual) Monocytes # (Manual) PT INR D-Dimer Heparin Anti-Xa Level POC ABG pH ABG pH POC ABG pCO2 POC ABG pO2 ABG pO2 ABG HCO3 ABG O2 Saturation ABG Base Excess ABG Hemoglobin Oxyhemoglobin Sodium Potassium Chloride Carbon Dioxide BUN Creatinine Glucose POC Glucose 122 H 113 H Lactic Acid Calcium Ionized Calcium Phosphorus Magnesium Iron TIBC Ferritin Total Bilirubin Direct Bilirubin AST ALT Alkaline Phosphatase Total Creatine Kinase CK-MB (CK-2) Troponin T C-Reactive Protein Serum Total Protein Total Protein Albumin Ibhby-1-Birdkwveg Jmwkx-0-Fhavonwnr PEP Interpretation Triglycerides LDL Cholesterol Direct HDL Cholesterol Free T4 PTH Intact Urine WBC (Auto) Urine Creatinine Salicylates Acetaminophen Crossmatch 03/23/19 03/24/19 03/24/19 17:47 00:00 04:50 WBC 35.0 H RBC Hgb 10.4 L Hct 32.4 L MCV MCHC RDW Plt Count 60 L Lymph % (Auto) [place] % (Auto) Eos % (Auto) Lymph # [place] # Eos # Seg Neutrophils % Seg Neuts % (Manual) 93.0 H Lymphocytes % (Manual) 5.0 L Monocytes % (Manual) Nucleated RBC % 7.0 H Seg Neutrophils # Seg Neutrophils # Man 32.6 H Lymphocytes # (Manual) Monocytes # (Manual) PT INR D-Dimer Heparin Anti-Xa Level POC ABG pH ABG pH POC ABG pCO2 POC ABG pO2 ABG pO2 ABG HCO3 ABG O2 Saturation ABG Base Excess ABG Hemoglobin Oxyhemoglobin Sodium Potassium Chloride Carbon Dioxide BUN Creatinine Glucose POC Glucose 111 H 108 H Lactic Acid Calcium Ionized Calcium Phosphorus Magnesium Iron TIBC Ferritin Total Bilirubin Direct Bilirubin AST ALT Alkaline Phosphatase Total Creatine Kinase CK-MB (CK-2) Troponin T C-Reactive Protein Serum Total Protein Total Protein Albumin Dbpoc-7-Oduxzeidn Dqrls-5-Hkagjmess PEP Interpretation Triglycerides LDL Cholesterol Direct HDL Cholesterol Free T4 PTH Intact Urine WBC (Auto) Urine Creatinine Salicylates Acetaminophen Crossmatch 03/24/19 03/24/19 03/24/19 04:50 05:06 12:55 WBC RBC Hgb Hct MCV MCHC RDW Plt Count Lymph % (Auto) [place] % (Auto) Eos % (Auto) Lymph # [place] # Eos # Seg Neutrophils % Seg Neuts % (Manual) Lymphocytes % (Manual) Monocytes % (Manual) Nucleated RBC % Seg Neutrophils # Seg Neutrophils # Man Lymphocytes # (Manual) Monocytes # (Manual) PT INR D-Dimer Heparin Anti-Xa Level POC ABG pH ABG pH POC ABG pCO2 POC ABG pO2 ABG pO2 ABG HCO3 ABG O2 Saturation ABG Base Excess ABG Hemoglobin Oxyhemoglobin Sodium 134 L Potassium 5.1 H Chloride 95.3 L Carbon Dioxide 21 L BUN 85 H Creatinine 6.4 H Glucose 109 H POC Glucose 112 H 110 H Lactic Acid Calcium 5.8 L* Ionized Calcium Phosphorus Magnesium Iron TIBC Ferritin Total Bilirubin Direct Bilirubin AST ALT Alkaline Phosphatase Total Creatine Kinase 5747 H CK-MB (CK-2) Troponin T C-Reactive Protein Serum Total Protein Total Protein Albumin Srjav-9-Mybrlyqqe Thzoh-6-Tdhunjakm PEP Interpretation Triglycerides LDL Cholesterol Direct HDL Cholesterol Free T4 PTH Intact Urine WBC (Auto) Urine Creatinine Salicylates Acetaminophen Crossmatch 03/24/19 03/25/19 03/25/19 23:29 05:00 05:00 WBC RBC Hgb Hct MCV MCHC RDW Plt Count Lymph % (Auto) [place] % (Auto) Eos % (Auto) Lymph # [place] # Eos # Seg Neutrophils % Seg Neuts % (Manual) Lymphocytes % (Manual) Monocytes % (Manual) Nucleated RBC % Seg Neutrophils # Seg Neutrophils # Man Lymphocytes # (Manual) Monocytes # (Manual) PT INR D-Dimer Heparin Anti-Xa Level POC ABG pH ABG pH POC ABG pCO2 POC ABG pO2 ABG pO2 ABG HCO3 ABG O2 Saturation ABG Base Excess ABG Hemoglobin Oxyhemoglobin Sodium 133 L Potassium Chloride 94.0 L Carbon Dioxide 21 L BUN 81 H Creatinine 6.4 H Glucose POC Glucose 109 H Lactic Acid Calcium 5.5 L* Ionized Calcium Phosphorus Magnesium Iron TIBC Ferritin Total Bilirubin Direct Bilirubin AST 80 H ALT Alkaline Phosphatase 202 H Total Creatine Kinase 3589 H CK-MB (CK-2) Troponin T C-Reactive Protein Serum Total Protein Total Protein 5.3 L Albumin 2.4 L Ucoyq-6-Uejzgmiav Lpeyp-3-Xfbotzmmv PEP Interpretation Triglycerides LDL Cholesterol Direct HDL Cholesterol Free T4 PTH Intact 329.9 H Urine WBC (Auto) Urine Creatinine Salicylates Acetaminophen Crossmatch 03/25/19 03/25/19 03/26/19 05:00 06:30 04:30 WBC 23.3 H RBC 3.61 L Hgb 10.2 L Hct 31.2 L MCV MCHC RDW Plt Count 57 L Lymph % (Auto) [place] % (Auto) Eos % (Auto) Lymph # [place] # Eos # Seg Neutrophils % Seg Neuts % (Manual) 92.0 H Lymphocytes % (Manual) 6.0 L Monocytes % (Manual) Nucleated RBC % Seg Neutrophils # Seg Neutrophils # Man 21.4 H Lymphocytes # (Manual) Monocytes # (Manual) PT INR D-Dimer Heparin Anti-Xa Level POC ABG pH ABG pH 7.326 L POC ABG pCO2 POC ABG pO2 ABG pO2 109.5 H 137.4 H ABG HCO3 18.8 L 18.6 L ABG O2 Saturation ABG Base Excess -4.4 L -6.8 L ABG Hemoglobin 10.1 L 9.9 L Oxyhemoglobin Sodium Potassium Chloride Carbon Dioxide BUN Creatinine Glucose POC Glucose Lactic Acid Calcium Ionized Calcium Phosphorus Magnesium Iron TIBC Ferritin Total Bilirubin Direct Bilirubin AST ALT Alkaline Phosphatase Total Creatine Kinase CK-MB (CK-2) Troponin T C-Reactive Protein Serum Total Protein Total Protein Albumin Feylu-5-Rnvnfrrtx Yhzhg-7-Vmthzrmlv PEP Interpretation Triglycerides LDL Cholesterol Direct HDL Cholesterol Free T4 PTH Intact Urine WBC (Auto) Urine Creatinine Salicylates Acetaminophen Crossmatch 03/26/19 03/26/19 03/26/19 23:22 Unknown Unknown WBC 19.5 H RBC 3.44 L Hgb 9.8 L Hct 29.9 L MCV MCHC RDW Plt Count 85 L Lymph % (Auto) [place] % (Auto) Eos % (Auto) Lymph # [place] # Eos # Seg Neutrophils % Seg Neuts % (Manual) 95.0 H Lymphocytes % (Manual) 3.0 L Monocytes % (Manual) Nucleated RBC % Seg Neutrophils # Seg Neutrophils # Man 18.5 H Lymphocytes # (Manual) 0.6 L Monocytes # (Manual) PT INR D-Dimer Heparin Anti-Xa Level POC ABG pH ABG pH POC ABG pCO2 POC ABG pO2 ABG pO2 ABG HCO3 ABG O2 Saturation ABG Base Excess ABG Hemoglobin Oxyhemoglobin Sodium 135 L Potassium 5.2 H D Chloride 92.2 L Carbon Dioxide 18 L BUN 109 H Creatinine 8.5 H Glucose 117 H POC Glucose 69 L Lactic Acid Calcium 4.5 L* D Ionized Calcium Phosphorus Magnesium Iron TIBC Ferritin Total Bilirubin Direct Bilirubin AST ALT Alkaline Phosphatase Total Creatine Kinase 4527 H CK-MB (CK-2) Troponin T C-Reactive Protein Serum Total Protein Total Protein Albumin Luxiu-6-Hulzybirh Oatki-1-Lwvqqygih PEP Interpretation Triglycerides LDL Cholesterol Direct HDL Cholesterol Free T4 PTH Intact Urine WBC (Auto) Urine Creatinine Salicylates Acetaminophen Crossmatch 03/27/19 03/27/19 03/27/19 04:30 04:30 09:00 WBC 19.2 H RBC 3.42 L Hgb 9.9 L Hct 30.0 L MCV MCHC RDW Plt Count 84 L Lymph % (Auto) [place] % (Auto) Eos % (Auto) Lymph # [place] # Eos # Seg Neutrophils % Seg Neuts % (Manual) Lymphocytes % (Manual) Monocytes % (Manual) Nucleated RBC % Seg Neutrophils # Seg Neutrophils # Man Lymphocytes # (Manual) Monocytes # (Manual) PT INR D-Dimer Heparin Anti-Xa Level POC ABG pH ABG pH POC ABG pCO2 POC ABG pO2 ABG pO2 ABG HCO3 ABG O2 Saturation ABG Base Excess ABG Hemoglobin Oxyhemoglobin Sodium 135 L Potassium Chloride 93.5 L Carbon Dioxide BUN 84 H Creatinine 7.1 H Glucose POC Glucose Lactic Acid Calcium 5.0 L* Ionized Calcium Phosphorus Magnesium Iron TIBC Ferritin Total Bilirubin Direct Bilirubin AST 78 H ALT Alkaline Phosphatase 135 H Total Creatine Kinase 4677 H CK-MB (CK-2) Troponin T C-Reactive Protein Serum Total Protein Total Protein 4.8 L Albumin 2.3 L Njmnz-7-Zyhnlujkx Ukgbe-4-Igysiqdnx PEP Interpretation Triglycerides 409 H LDL Cholesterol Direct HDL Cholesterol Free T4 PTH Intact Urine WBC (Auto) Urine Creatinine Salicylates Acetaminophen Crossmatch 03/27/19 03/27/19 03/27/19 12:37 14:15 14:15 WBC RBC Hgb 9.7 L Hct 29.5 L MCV MCHC RDW Plt Count 87 L Lymph % (Auto) [place] % (Auto) Eos % (Auto) Lymph # [place] # Eos # Seg Neutrophils % Seg Neuts % (Manual) Lymphocytes % (Manual) Monocytes % (Manual) Nucleated RBC % Seg Neutrophils # Seg Neutrophils # Man Lymphocytes # (Manual) Monocytes # (Manual) PT 15.9 H INR 1.30 H D-Dimer Heparin Anti-Xa Level POC ABG pH ABG pH POC ABG pCO2 POC ABG pO2 ABG pO2 ABG HCO3 ABG O2 Saturation ABG Base Excess ABG Hemoglobin Oxyhemoglobin Sodium Potassium Chloride Carbon Dioxide BUN Creatinine Glucose POC Glucose 129 H Lactic Acid Calcium Ionized Calcium Phosphorus Magnesium Iron TIBC Ferritin Total Bilirubin Direct Bilirubin AST ALT Alkaline Phosphatase Total Creatine Kinase CK-MB (CK-2) Troponin T C-Reactive Protein Serum Total Protein Total Protein Albumin Wugvs-0-Gcnmiiesi Lwgjg-0-Mthuqezdg PEP Interpretation Triglycerides LDL Cholesterol Direct HDL Cholesterol Free T4 PTH Intact Urine WBC (Auto) Urine Creatinine Salicylates Acetaminophen Crossmatch 03/27/19 03/27/19 03/27/19 18:00 19:22 19:23 WBC RBC Hgb Hct MCV MCHC RDW Plt Count Lymph % (Auto) [place] % (Auto) Eos % (Auto) Lymph # [place] # Eos # Seg Neutrophils % Seg Neuts % (Manual) Lymphocytes % (Manual) Monocytes % (Manual) Nucleated RBC % Seg Neutrophils # Seg Neutrophils # Man Lymphocytes # (Manual) Monocytes # (Manual) PT INR D-Dimer Heparin Anti-Xa Level < 0.10 L POC ABG pH ABG pH POC ABG pCO2 POC ABG pO2 ABG pO2 ABG HCO3 ABG O2 Saturation ABG Base Excess ABG Hemoglobin Oxyhemoglobin Sodium Potassium Chloride Carbon Dioxide BUN Creatinine Glucose POC Glucose 121 H Lactic Acid Calcium Ionized Calcium Phosphorus Magnesium Iron TIBC Ferritin Total Bilirubin Direct Bilirubin AST ALT Alkaline Phosphatase Total Creatine Kinase 4517 H CK-MB (CK-2) Troponin T C-Reactive Protein Serum Total Protein Total Protein Albumin Nvytm-5-Ybbczpbgx Huwdt-4-Qoknjfxxm PEP Interpretation Triglycerides LDL Cholesterol Direct HDL Cholesterol Free T4 PTH Intact Urine WBC (Auto) Urine Creatinine Salicylates Acetaminophen Crossmatch 03/27/19 03/27/19 03/28/19 22:10 23:52 03:49 WBC RBC Hgb Hct MCV MCHC RDW Plt Count Lymph % (Auto) [place] % (Auto) Eos % (Auto) Lymph # [place] # Eos # Seg Neutrophils % Seg Neuts % (Manual) Lymphocytes % (Manual) Monocytes % (Manual) Nucleated RBC % Seg Neutrophils # Seg Neutrophils # Man Lymphocytes # (Manual) Monocytes # (Manual) PT INR D-Dimer Heparin Anti-Xa Level POC ABG pH 7.338 L ABG pH POC ABG pCO2 33.1 L POC ABG pO2 ABG pO2 ABG HCO3 ABG O2 Saturation ABG Base Excess ABG Hemoglobin Oxyhemoglobin Sodium Potassium Chloride Carbon Dioxide BUN Creatinine Glucose POC Glucose 113 H 117 H Lactic Acid Calcium Ionized Calcium Phosphorus Magnesium Iron TIBC Ferritin Total Bilirubin Direct Bilirubin AST ALT Alkaline Phosphatase Total Creatine Kinase CK-MB (CK-2) Troponin T C-Reactive Protein Serum Total Protein Total Protein Albumin Wvrbp-7-Xgsrbsfpj Ldkeu-6-Zarsmbkqe PEP Interpretation Triglycerides LDL Cholesterol Direct HDL Cholesterol Free T4 PTH Intact Urine WBC (Auto) Urine Creatinine Salicylates Acetaminophen Crossmatch 03/28/19 03/28/19 03/28/19 05:13 05:13 06:18 WBC RBC Hgb Hct MCV MCHC RDW Plt Count Lymph % (Auto) [place] % (Auto) Eos % (Auto) Lymph # [place] # Eos # Seg Neutrophils % Seg Neuts % (Manual) Lymphocytes % (Manual) Monocytes % (Manual) Nucleated RBC % Seg Neutrophils # Seg Neutrophils # Man Lymphocytes # (Manual) Monocytes # (Manual) PT INR D-Dimer Heparin Anti-Xa Level 0.23 L POC ABG pH ABG pH POC ABG pCO2 POC ABG pO2 ABG pO2 ABG HCO3 ABG O2 Saturation ABG Base Excess ABG Hemoglobin Oxyhemoglobin Sodium 135 L Potassium 5.5 H D Chloride 95.1 L Carbon Dioxide 16 L D BUN 129 H Creatinine 9.3 H Glucose 158 H POC Glucose 202 H Lactic Acid Calcium 4.0 L* D Ionized Calcium Phosphorus 12.40 H Magnesium Iron TIBC Ferritin Total Bilirubin Direct Bilirubin AST ALT Alkaline Phosphatase Total Creatine Kinase 4266 H CK-MB (CK-2) Troponin T C-Reactive Protein Serum Total Protein Total Protein Albumin Ctwss-4-Dbrsjddot Jbine-7-Jaevhnrhf PEP Interpretation Triglycerides LDL Cholesterol Direct HDL Cholesterol Free T4 PTH Intact Urine WBC (Auto) Urine Creatinine Salicylates Acetaminophen Crossmatch 03/28/19 03/28/19 03/28/19 08:25 10:00 12:00 WBC RBC Hgb 4.9 L* D Hct 15.4 L* D MCV MCHC RDW Plt Count Lymph % (Auto) Mcdowell % (Auto) Eos % (Auto) Lymph # Mcdowell # Eos # Seg Neutrophils % Seg Neuts % (Manual) Lymphocytes % (Manual) Monocytes % (Manual) Nucleated RBC % Seg Neutrophils # Seg Neutrophils # Man Lymphocytes # (Manual) Monocytes # (Manual) PT 17.9 H INR 1.52 H D-Dimer 4845.98 H Heparin Anti-Xa Level POC ABG pH ABG pH POC ABG pCO2 POC ABG pO2 ABG pO2 ABG HCO3 ABG O2 Saturation ABG Base Excess ABG Hemoglobin Oxyhemoglobin Sodium Potassium Chloride Carbon Dioxide BUN Creatinine Glucose POC Glucose Lactic Acid Calcium Ionized Calcium Phosphorus Magnesium Iron TIBC Ferritin Total Bilirubin Direct Bilirubin AST ALT Alkaline Phosphatase Total Creatine Kinase CK-MB (CK-2) Troponin T C-Reactive Protein Serum Total Protein Total Protein Albumin Yzewr-3-Ssktkkemd Egxeb-9-Vjthxjoth PEP Interpretation Triglycerides LDL Cholesterol Direct HDL Cholesterol Free T4 PTH Intact Urine WBC (Auto) Urine Creatinine Salicylates Acetaminophen Crossmatch See Detail 03/28/19 03/28/19 03/28/19 12:28 14:10 17:43 WBC RBC Hgb 5.9 L* Hct 18.3 L* MCV MCHC RDW Plt Count Lymph % (Auto) [place] % (Auto) Eos % (Auto) Lymph # [place] # Eos # Seg Neutrophils % Seg Neuts % (Manual) Lymphocytes % (Manual) Monocytes % (Manual) Nucleated RBC % Seg Neutrophils # Seg Neutrophils # Man Lymphocytes # (Manual) Monocytes # (Manual) PT INR D-Dimer Heparin Anti-Xa Level POC ABG pH ABG pH POC ABG pCO2 POC ABG pO2 ABG pO2 ABG HCO3 ABG O2 Saturation ABG Base Excess ABG Hemoglobin Oxyhemoglobin Sodium Potassium Chloride Carbon Dioxide BUN Creatinine Glucose POC Glucose 153 H 159 H Lactic Acid Calcium Ionized Calcium Phosphorus Magnesium Iron TIBC Ferritin Total Bilirubin Direct Bilirubin AST ALT Alkaline Phosphatase Total Creatine Kinase CK-MB (CK-2) Troponin T C-Reactive Protein Serum Total Protein Total Protein Albumin Javzu-0-Iovmaeusb Kdsco-7-Qribjwgae PEP Interpretation Triglycerides LDL Cholesterol Direct HDL Cholesterol Free T4 PTH Intact Urine WBC (Auto) Urine Creatinine Salicylates Acetaminophen Crossmatch 03/28/19 03/28/19 03/28/19 18:10 Unknown 23:59 WBC 24.8 H RBC 3.42 L Hgb 10.2 L D Hct 31.1 L D MCV MCHC RDW 15.4 H Plt Count 54 L Lymph % (Auto) [place] % (Auto) Eos % (Auto) Lymph # [place] # Eos # Seg Neutrophils % Seg Neuts % (Manual) 91.0 H Lymphocytes % (Manual) 8.0 L Monocytes % (Manual) Nucleated RBC % Seg Neutrophils # Seg Neutrophils # Man 22.6 H Lymphocytes # (Manual) Monocytes # (Manual) PT INR D-Dimer Heparin Anti-Xa Level POC ABG pH ABG pH POC ABG pCO2 POC ABG pO2 ABG pO2 ABG HCO3 ABG O2 Saturation ABG Base Excess ABG Hemoglobin Oxyhemoglobin Sodium Potassium 5.7 H Chloride Carbon Dioxide BUN Creatinine Glucose POC Glucose 107 H Lactic Acid Calcium Ionized Calcium Phosphorus Magnesium Iron TIBC Ferritin Total Bilirubin Direct Bilirubin AST ALT Alkaline Phosphatase Total Creatine Kinase CK-MB (CK-2) Troponin T C-Reactive Protein Serum Total Protein Total Protein Albumin Xhywf-0-Tcwhfkphd Yhzkg-1-Wcfbpodmo PEP Interpretation Triglycerides LDL Cholesterol Direct HDL Cholesterol Free T4 PTH Intact Urine WBC (Auto) Urine Creatinine Salicylates Acetaminophen Crossmatch 03/29/19 03/29/19 03/29/19 04:29 05:46 06:22 WBC RBC Hgb 8.6 L Hct 25.7 L MCV MCHC RDW Plt Count 93 L Lymph % (Auto) [place] % (Auto) Eos % (Auto) Lymph # [place] # Eos # Seg Neutrophils % Seg Neuts % (Manual) Lymphocytes % (Manual) Monocytes % (Manual) Nucleated RBC % Seg Neutrophils # Seg Neutrophils # Man Lymphocytes # (Manual) Monocytes # (Manual) PT INR D-Dimer Heparin Anti-Xa Level POC ABG pH ABG pH POC ABG pCO2 32.2 L POC ABG pO2 ABG pO2 ABG HCO3 ABG O2 Saturation ABG Base Excess ABG Hemoglobin Oxyhemoglobin Sodium Potassium Chloride Carbon Dioxide BUN Creatinine Glucose POC Glucose 113 H Lactic Acid Calcium Ionized Calcium Phosphorus Magnesium Iron TIBC Ferritin Total Bilirubin Direct Bilirubin AST ALT Alkaline Phosphatase Total Creatine Kinase CK-MB (CK-2) Troponin T C-Reactive Protein Serum Total Protein Total Protein Albumin Pbqgn-2-Mvovrmgvt Rdxty-2-Zdltoxoox PEP Interpretation Triglycerides LDL Cholesterol Direct HDL Cholesterol Free T4 PTH Intact Urine WBC (Auto) Urine Creatinine Salicylates Acetaminophen Crossmatch 03/29/19 03/29/19 03/29/19 06:22 06:22 06:22 WBC 23.2 H RBC 2.91 L Hgb 8.6 L Hct 25.8 L MCV MCHC RDW Plt Count 91 L Lymph % (Auto) [place] % (Auto) Eos % (Auto) Lymph # [place] # Eos # Seg Neutrophils % Seg Neuts % (Manual) Lymphocytes % (Manual) Monocytes % (Manual) Nucleated RBC % Seg Neutrophils # Seg Neutrophils # Man Lymphocytes # (Manual) Monocytes # (Manual) PT INR D-Dimer Heparin Anti-Xa Level POC ABG pH ABG pH POC ABG pCO2 POC ABG pO2 ABG pO2 ABG HCO3 ABG O2 Saturation ABG Base Excess ABG Hemoglobin Oxyhemoglobin Sodium 133 L Potassium Chloride 93.8 L Carbon Dioxide 18 L BUN 109 H Creatinine 7.4 H Glucose 124 H POC Glucose Lactic Acid Calcium 4.6 L* Ionized Calcium Phosphorus Magnesium Iron TIBC Ferritin Total Bilirubin Direct Bilirubin AST ALT Alkaline Phosphatase Total Creatine Kinase 3401 H CK-MB (CK-2) Troponin T C-Reactive Protein Serum Total Protein Total Protein Albumin Tsgae-3-Uxkkttixd Mwyxj-1-Gytdbbkue PEP Interpretation Triglycerides 309 H LDL Cholesterol Direct HDL Cholesterol Free T4 PTH Intact Urine WBC (Auto) Urine Creatinine Salicylates Acetaminophen Crossmatch 03/29/19 03/29/19 03/29/19 11:48 11:48 18:24 WBC RBC Hgb 7.8 L Hct 23.2 L MCV MCHC RDW Plt Count Lymph % (Auto) [place] % (Auto) Eos % (Auto) Lymph # [place] # Eos # Seg Neutrophils % Seg Neuts % (Manual) Lymphocytes % (Manual) Monocytes % (Manual) Nucleated RBC % Seg Neutrophils # Seg Neutrophils # Man Lymphocytes # (Manual) Monocytes # (Manual) PT 15.3 H INR 1.24 H D-Dimer Heparin Anti-Xa Level POC ABG pH ABG pH POC ABG pCO2 POC ABG pO2 ABG pO2 ABG HCO3 ABG O2 Saturation ABG Base Excess ABG Hemoglobin Oxyhemoglobin Sodium Potassium Chloride Carbon Dioxide BUN Creatinine Glucose POC Glucose 122 H Lactic Acid Calcium Ionized Calcium Phosphorus Magnesium Iron TIBC Ferritin Total Bilirubin Direct Bilirubin AST ALT Alkaline Phosphatase Total Creatine Kinase CK-MB (CK-2) Troponin T C-Reactive Protein Serum Total Protein Total Protein Albumin Fbsns-3-Yivopcafj Wnfbi-6-Athwfsjqs PEP Interpretation Triglycerides LDL Cholesterol Direct HDL Cholesterol Free T4 PTH Intact Urine WBC (Auto) Urine Creatinine Salicylates Acetaminophen Crossmatch 03/30/19 03/30/19 03/30/19 00:40 04:31 05:04 WBC RBC Hgb 7.6 L Hct 23.0 L MCV MCHC RDW Plt Count Lymph % (Auto) [place] % (Auto) Eos % (Auto) Lymph # [place] # Eos # Seg Neutrophils % Seg Neuts % (Manual) Lymphocytes % (Manual) Monocytes % (Manual) Nucleated RBC % Seg Neutrophils # Seg Neutrophils # Man Lymphocytes # (Manual) Monocytes # (Manual) PT INR D-Dimer Heparin Anti-Xa Level POC ABG pH 7.346 L ABG pH POC ABG pCO2 POC ABG pO2 62 L ABG pO2 ABG HCO3 ABG O2 Saturation ABG Base Excess ABG Hemoglobin Oxyhemoglobin Sodium Potassium Chloride Carbon Dioxide BUN 79 H Creatinine 6.4 H Glucose POC Glucose Lactic Acid Calcium 6.1 L D Ionized Calcium Phosphorus Magnesium Iron TIBC Ferritin Total Bilirubin Direct Bilirubin AST ALT Alkaline Phosphatase Total Creatine Kinase CK-MB (CK-2) Troponin T C-Reactive Protein Serum Total Protein Total Protein Albumin Qajzt-9-Oewtxczma Cilay-3-Sygprzsgh PEP Interpretation Triglycerides LDL Cholesterol Direct HDL Cholesterol Free T4 PTH Intact Urine WBC (Auto) Urine Creatinine Salicylates Acetaminophen Crossmatch 03/30/19 03/30/19 03/30/19 08:45 12:09 22:43 WBC 14.3 H RBC 2.33 L Hgb 7.0 L 7.4 L Hct 21.0 L 22.3 L MCV MCHC RDW 15.6 H Plt Count 135 L Lymph % (Auto) [place] % (Auto) Eos % (Auto) Lymph # [place] # Eos # Seg Neutrophils % Seg Neuts % (Manual) Lymphocytes % (Manual) Monocytes % (Manual) Nucleated RBC % Seg Neutrophils # Seg Neutrophils # Man Lymphocytes # (Manual) Monocytes # (Manual) PT INR D-Dimer Heparin Anti-Xa Level POC ABG pH ABG pH POC ABG pCO2 POC ABG pO2 ABG pO2 ABG HCO3 ABG O2 Saturation ABG Base Excess ABG Hemoglobin Oxyhemoglobin Sodium Potassium Chloride Carbon Dioxide BUN Creatinine Glucose POC Glucose Lactic Acid Calcium Ionized Calcium 3.7 L Phosphorus Magnesium Iron TIBC Ferritin Total Bilirubin Direct Bilirubin AST ALT Alkaline Phosphatase Total Creatine Kinase CK-MB (CK-2) Troponin T C-Reactive Protein Serum Total Protein Total Protein Albumin Sqvuy-6-Acqzqmhyl Xreio-0-Bdavfgsdq PEP Interpretation Triglycerides LDL Cholesterol Direct HDL Cholesterol Free T4 PTH Intact Urine WBC (Auto) Urine Creatinine Salicylates Acetaminophen Crossmatch 03/30/19 03/30/19 03/31/19 23:38 Unknown 04:44 WBC 11.5 H RBC 2.40 L Hgb 7.3 L Hct 21.9 L MCV MCHC RDW 15.4 H Plt Count Lymph % (Auto) 10.6 L [place] % (Auto) Eos % (Auto) Lymph # [place] # Eos # Seg Neutrophils % 81.7 H Seg Neuts % (Manual) Lymphocytes % (Manual) Monocytes % (Manual) Nucleated RBC % Seg Neutrophils # 9.4 H Seg Neutrophils # Man Lymphocytes # (Manual) Monocytes # (Manual) PT INR D-Dimer Heparin Anti-Xa Level POC ABG pH ABG pH POC ABG pCO2 POC ABG pO2 ABG pO2 ABG HCO3 ABG O2 Saturation ABG Base Excess ABG Hemoglobin Oxyhemoglobin Sodium Potassium Chloride Carbon Dioxide BUN Creatinine Glucose POC Glucose 155 H Lactic Acid Calcium Ionized Calcium Phosphorus Magnesium Iron TIBC Ferritin Total Bilirubin Direct Bilirubin 0.4 H AST 63 H ALT Alkaline Phosphatase Total Creatine Kinase CK-MB (CK-2) Troponin T C-Reactive Protein Serum Total Protein Total Protein 4.9 L Albumin 2.2 L Kwlly-4-Neqigjjcm Qaova-8-Tzsnavpeq PEP Interpretation Triglycerides LDL Cholesterol Direct HDL Cholesterol Free T4 PTH Intact Urine WBC (Auto) Urine Creatinine Salicylates Acetaminophen Crossmatch 03/31/19 03/31/19 03/31/19 04:44 05:44 08:20 WBC RBC Hgb Hct MCV MCHC RDW Plt Count Lymph % (Auto) [place] % (Auto) Eos % (Auto) Lymph # [place] # Eos # Seg Neutrophils % Seg Neuts % (Manual) Lymphocytes % (Manual) Monocytes % (Manual) Nucleated RBC % Seg Neutrophils # Seg Neutrophils # Man Lymphocytes # (Manual) Monocytes # (Manual) PT INR D-Dimer Heparin Anti-Xa Level POC ABG pH ABG pH POC ABG pCO2 53.5 H POC ABG pO2 62 L ABG pO2 ABG HCO3 ABG O2 Saturation ABG Base Excess ABG Hemoglobin Oxyhemoglobin Sodium 135 L Potassium Chloride 96.7 L Carbon Dioxide 19 L BUN 94 H Creatinine 7.8 H Glucose POC Glucose Lactic Acid Calcium 5.3 L* Ionized Calcium Phosphorus 8.20 H Magnesium Iron TIBC Ferritin Total Bilirubin Direct Bilirubin 0.4 H AST 60 H ALT Alkaline Phosphatase Total Creatine Kinase CK-MB (CK-2) Troponin T C-Reactive Protein Serum Total Protein Total Protein 4.8 L Albumin 2.1 L Qvgju-7-Mnfdyipjc Lyemt-3-Gqwbbsqun PEP Interpretation Triglycerides LDL Cholesterol Direct HDL Cholesterol Free T4 PTH Intact Urine WBC (Auto) Urine Creatinine Salicylates Acetaminophen Crossmatch 03/31/19 04/01/19 04/01/19 22:14 04:27 04:27 WBC RBC 2.60 L Hgb 8.0 L Hct 24.1 L MCV MCHC RDW 15.7 H Plt Count Lymph % (Auto) 7.9 L [place] % (Auto) Eos % (Auto) Lymph # 0.7 L [place] # Eos # Seg Neutrophils % 83.6 H Seg Neuts % (Manual) Lymphocytes % (Manual) Monocytes % (Manual) Nucleated RBC % Seg Neutrophils # Seg Neutrophils # Man Lymphocytes # (Manual) Monocytes # (Manual) PT INR D-Dimer Heparin Anti-Xa Level POC ABG pH 7.286 L ABG pH POC ABG pCO2 54.7 H POC ABG pO2 179 H ABG pO2 ABG HCO3 ABG O2 Saturation ABG Base Excess ABG Hemoglobin Oxyhemoglobin Sodium Potassium Chloride Carbon Dioxide BUN 68 H Creatinine 6.6 H Glucose POC Glucose Lactic Acid Calcium 6.5 L D Ionized Calcium Phosphorus 7.30 H Magnesium Iron TIBC Ferritin Total Bilirubin Direct Bilirubin AST ALT Alkaline Phosphatase Total Creatine Kinase 1652 H CK-MB (CK-2) Troponin T C-Reactive Protein Serum Total Protein Total Protein Albumin Ogihd-1-Djkxcmqwj Hujgn-6-Ixacxgjfh PEP Interpretation Triglycerides LDL Cholesterol Direct HDL Cholesterol Free T4 PTH Intact Urine WBC (Auto) Urine Creatinine Salicylates Acetaminophen Crossmatch 04/01/19 04/01/19 04/01/19 05:14 05:37 18:37 WBC RBC Hgb Hct MCV MCHC RDW Plt Count Lymph % (Auto) [place] % (Auto) Eos % (Auto) Lymph # [place] # Eos # Seg Neutrophils % Seg Neuts % (Manual) Lymphocytes % (Manual) Monocytes % (Manual) Nucleated RBC % Seg Neutrophils # Seg Neutrophils # Man Lymphocytes # (Manual) Monocytes # (Manual) PT INR D-Dimer Heparin Anti-Xa Level POC ABG pH 7.283 L ABG pH POC ABG pCO2 53.4 H POC ABG pO2 241 H ABG pO2 ABG HCO3 ABG O2 Saturation ABG Base Excess ABG Hemoglobin Oxyhemoglobin Sodium Potassium Chloride Carbon Dioxide BUN Creatinine Glucose POC Glucose 111 H 119 H Lactic Acid Calcium Ionized Calcium Phosphorus Magnesium Iron TIBC Ferritin Total Bilirubin Direct Bilirubin AST ALT Alkaline Phosphatase Total Creatine Kinase CK-MB (CK-2) Troponin T C-Reactive Protein Serum Total Protein Total Protein Albumin Aygub-0-Nnwakqykz Xlquz-5-Oxkiktaou PEP Interpretation Triglycerides LDL Cholesterol Direct HDL Cholesterol Free T4 PTH Intact Urine WBC (Auto) Urine Creatinine Salicylates Acetaminophen Crossmatch 04/01/19 04/02/19 04/02/19 21:28 04:40 05:03 WBC RBC 2.36 L Hgb 7.2 L Hct 21.9 L MCV MCHC RDW 16.0 H Plt Count Lymph % (Auto) 10.8 L [place] % (Auto) Eos % (Auto) Lymph # 0.8 L [place] # Eos # Seg Neutrophils % 80.3 H Seg Neuts % (Manual) Lymphocytes % (Manual) Monocytes % (Manual) Nucleated RBC % Seg Neutrophils # Seg Neutrophils # Man Lymphocytes # (Manual) Monocytes # (Manual) PT INR D-Dimer Heparin Anti-Xa Level POC ABG pH 7.299 L 7.300 L ABG pH POC ABG pCO2 48.2 H 45.2 H POC ABG pO2 133 H 107 H ABG pO2 ABG HCO3 ABG O2 Saturation ABG Base Excess ABG Hemoglobin Oxyhemoglobin Sodium Potassium Chloride Carbon Dioxide BUN Creatinine Glucose POC Glucose Lactic Acid Calcium Ionized Calcium Phosphorus Magnesium Iron TIBC Ferritin Total Bilirubin Direct Bilirubin AST ALT Alkaline Phosphatase Total Creatine Kinase CK-MB (CK-2) Troponin T C-Reactive Protein Serum Total Protein Total Protein Albumin Vkxjk-2-Qyrwhlzgz Geioo-1-Xjlocooyg PEP Interpretation Triglycerides LDL Cholesterol Direct HDL Cholesterol Free T4 PTH Intact Urine WBC (Auto) Urine Creatinine Salicylates Acetaminophen Crossmatch 04/02/19 04/02/19 04/02/19 05:03 05:03 12:15 WBC RBC Hgb 7.4 L Hct 22.6 L MCV MCHC RDW Plt Count Lymph % (Auto) [place] % (Auto) Eos % (Auto) Lymph # [place] # Eos # Seg Neutrophils % Seg Neuts % (Manual) Lymphocytes % (Manual) Monocytes % (Manual) Nucleated RBC % Seg Neutrophils # Seg Neutrophils # Man Lymphocytes # (Manual) Monocytes # (Manual) PT INR D-Dimer Heparin Anti-Xa Level POC ABG pH ABG pH POC ABG pCO2 POC ABG pO2 ABG pO2 ABG HCO3 ABG O2 Saturation ABG Base Excess ABG Hemoglobin Oxyhemoglobin Sodium 136 L Potassium Chloride 97.8 L Carbon Dioxide 18 L BUN 82 H Creatinine 8.2 H Glucose POC Glucose Lactic Acid Calcium 6.7 L Ionized Calcium Phosphorus 7.50 H Magnesium Iron 26 L TIBC 138 L Ferritin 607.0 H Total Bilirubin Direct Bilirubin AST ALT Alkaline Phosphatase Total Creatine Kinase CK-MB (CK-2) Troponin T C-Reactive Protein Serum Total Protein Total Protein Albumin Suvac-5-Ufznkaypv Pmnvd-6-Ysjamzfkt PEP Interpretation Triglycerides LDL Cholesterol Direct HDL Cholesterol Free T4 PTH Intact Urine WBC (Auto) Urine Creatinine Salicylates Acetaminophen Crossmatch 04/02/19 04/02/19 04/03/19 16:34 17:14 04:18 WBC RBC Hgb Hct MCV MCHC RDW Plt Count Lymph % (Auto) [place] % (Auto) Eos % (Auto) Lymph # [place] # Eos # Seg Neutrophils % Seg Neuts % (Manual) Lymphocytes % (Manual) Monocytes % (Manual) Nucleated RBC % Seg Neutrophils # Seg Neutrophils # Man Lymphocytes # (Manual) Monocytes # (Manual) PT INR D-Dimer Heparin Anti-Xa Level POC ABG pH ABG pH POC ABG pCO2 POC ABG pO2 146 H ABG pO2 ABG HCO3 ABG O2 Saturation ABG Base Excess ABG Hemoglobin Oxyhemoglobin Sodium Potassium Chloride Carbon Dioxide BUN Creatinine Glucose POC Glucose 108 H Lactic Acid Calcium Ionized Calcium Phosphorus Magnesium Iron TIBC Ferritin Total Bilirubin Direct Bilirubin AST ALT Alkaline Phosphatase Total Creatine Kinase CK-MB (CK-2) Troponin T C-Reactive Protein Serum Total Protein Total Protein Albumin Ezfev-8-Nqsqvbddz Efkwk-4-Iuoyoiauc PEP Interpretation Triglycerides LDL Cholesterol Direct HDL Cholesterol Free T4 PTH Intact Urine WBC (Auto) Urine Creatinine Salicylates Acetaminophen Crossmatch See Detail 04/03/19 04/03/19 04/03/19 04:25 08:30 18:24 WBC RBC 2.40 L Hgb 7.3 L Hct 21.9 L MCV MCHC RDW Plt Count Lymph % (Auto) [place] % (Auto) 7.7 H Eos % (Auto) Lymph # 0.9 L [place] # Eos # Seg Neutrophils % 74.6 H Seg Neuts % (Manual) Lymphocytes % (Manual) Monocytes % (Manual) Nucleated RBC % Seg Neutrophils # Seg Neutrophils # Man Lymphocytes # (Manual) Monocytes # (Manual) PT INR D-Dimer Heparin Anti-Xa Level POC ABG pH ABG pH POC ABG pCO2 POC ABG pO2 ABG pO2 ABG HCO3 ABG O2 Saturation ABG Base Excess ABG Hemoglobin Oxyhemoglobin Sodium 136 L Potassium Chloride 97.0 L Carbon Dioxide BUN 58 H Creatinine 7.3 H Glucose POC Glucose 106 H Lactic Acid Calcium 7.5 L Ionized Calcium Phosphorus 5.80 H D Magnesium Iron TIBC Ferritin Total Bilirubin Direct Bilirubin AST ALT Alkaline Phosphatase Total Creatine Kinase CK-MB (CK-2) Troponin T C-Reactive Protein Serum Total Protein Total Protein Albumin Cjijw-4-Wwwlsvhpm Yaiba-9-Mdrdqmnda PEP Interpretation Triglycerides LDL Cholesterol Direct HDL Cholesterol Free T4 PTH Intact Urine WBC (Auto) Urine Creatinine Salicylates Acetaminophen Crossmatch 04/03/19 04/04/19 04/04/19 23:43 04:47 04:47 WBC RBC 2.72 L Hgb 8.3 L Hct 24.7 L MCV MCHC RDW 15.6 H Plt Count Lymph % (Auto) [place] % (Auto) 10.1 H Eos % (Auto) Lymph # 0.8 L [place] # Eos # Seg Neutrophils % 71.4 H Seg Neuts % (Manual) Lymphocytes % (Manual) Monocytes % (Manual) Nucleated RBC % Seg Neutrophils # Seg Neutrophils # Man Lymphocytes # (Manual) Monocytes # (Manual) PT INR D-Dimer Heparin Anti-Xa Level POC ABG pH ABG pH POC ABG pCO2 POC ABG pO2 ABG pO2 123.8 H ABG HCO3 ABG O2 Saturation ABG Base Excess -3.0 L ABG Hemoglobin 7.9 L Oxyhemoglobin Sodium 134 L Potassium Chloride 97.9 L Carbon Dioxide BUN 64 H Creatinine 8.1 H Glucose POC Glucose Lactic Acid Calcium 7.2 L Ionized Calcium Phosphorus Magnesium Iron TIBC Ferritin Total Bilirubin Direct Bilirubin AST ALT Alkaline Phosphatase Total Creatine Kinase CK-MB (CK-2) Troponin T C-Reactive Protein Serum Total Protein Total Protein Albumin Doxie-5-Oqbybhmuq Wcihl-2-Znfsqhjuv PEP Interpretation Triglycerides LDL Cholesterol Direct HDL Cholesterol Free T4 PTH Intact Urine WBC (Auto) Urine Creatinine Salicylates Acetaminophen Crossmatch 04/04/19 04/04/19 04/04/19 06:07 13:40 18:18 WBC RBC Hgb Hct MCV MCHC RDW Plt Count Lymph % (Auto) [place] % (Auto) Eos % (Auto) Lymph # [place] # Eos # Seg Neutrophils % Seg Neuts % (Manual) Lymphocytes % (Manual) Monocytes % (Manual) Nucleated RBC % Seg Neutrophils # Seg Neutrophils # Man Lymphocytes # (Manual) Monocytes # (Manual) PT INR D-Dimer Heparin Anti-Xa Level POC ABG pH ABG pH POC ABG pCO2 POC ABG pO2 ABG pO2 95.9 H ABG HCO3 ABG O2 Saturation ABG Base Excess -3.0 L ABG Hemoglobin 8.5 L Oxyhemoglobin Sodium Potassium Chloride Carbon Dioxide BUN Creatinine Glucose POC Glucose 107 H 107 H Lactic Acid Calcium Ionized Calcium Phosphorus Magnesium Iron TIBC Ferritin Total Bilirubin Direct Bilirubin AST ALT Alkaline Phosphatase Total Creatine Kinase CK-MB (CK-2) Troponin T C-Reactive Protein Serum Total Protein Total Protein Albumin Utksf-6-Zfdpurgoc Gcnse-0-Qscpgycia PEP Interpretation Triglycerides LDL Cholesterol Direct HDL Cholesterol Free T4 PTH Intact Urine WBC (Auto) Urine Creatinine Salicylates Acetaminophen Crossmatch 04/04/19 04/05/19 04/05/19 21:22 04:09 04:09 WBC RBC 2.76 L Hgb 8.4 L Hct 25.4 L MCV MCHC RDW 15.8 H Plt Count 133 L Lymph % (Auto) [place] % (Auto) 9.6 H Eos % (Auto) Lymph # 0.7 L [place] # Eos # Seg Neutrophils % 72.6 H Seg Neuts % (Manual) Lymphocytes % (Manual) Monocytes % (Manual) Nucleated RBC % Seg Neutrophils # Seg Neutrophils # Man Lymphocytes # (Manual) Monocytes # (Manual) PT INR D-Dimer Heparin Anti-Xa Level POC ABG pH ABG pH POC ABG pCO2 47.2 H POC ABG pO2 137 H ABG pO2 ABG HCO3 ABG O2 Saturation ABG Base Excess ABG Hemoglobin Oxyhemoglobin Sodium 136 L Potassium Chloride Carbon Dioxide BUN 46 H Creatinine 6.7 H Glucose POC Glucose Lactic Acid Calcium 7.7 L Ionized Calcium Phosphorus Magnesium Iron TIBC Ferritin Total Bilirubin Direct Bilirubin AST ALT Alkaline Phosphatase Total Creatine Kinase CK-MB (CK-2) Troponin T C-Reactive Protein Serum Total Protein Total Protein Albumin Jgcvt-4-Rpxaftnpu Gvkll-6-Ceiribmso PEP Interpretation Triglycerides LDL Cholesterol Direct HDL Cholesterol Free T4 PTH Intact Urine WBC (Auto) Urine Creatinine Salicylates Acetaminophen Crossmatch 04/05/19 04/05/19 04/05/19 05:28 06:14 16:50 WBC RBC Hgb Hct MCV MCHC RDW Plt Count Lymph % (Auto) [place] % (Auto) Eos % (Auto) Lymph # [place] # Eos # Seg Neutrophils % Seg Neuts % (Manual) Lymphocytes % (Manual) Monocytes % (Manual) Nucleated RBC % Seg Neutrophils # Seg Neutrophils # Man Lymphocytes # (Manual) Monocytes # (Manual) PT INR D-Dimer Heparin Anti-Xa Level POC ABG pH ABG pH POC ABG pCO2 POC ABG pO2 67 L ABG pO2 ABG HCO3 ABG O2 Saturation ABG Base Excess ABG Hemoglobin Oxyhemoglobin Sodium Potassium Chloride Carbon Dioxide BUN Creatinine Glucose POC Glucose 108 H Lactic Acid Calcium Ionized Calcium Phosphorus Magnesium Iron TIBC Ferritin Total Bilirubin Direct Bilirubin AST ALT Alkaline Phosphatase Total Creatine Kinase CK-MB (CK-2) Troponin T C-Reactive Protein Serum Total Protein Total Protein Albumin Occwe-4-Jwkghvvua Sexfg-7-Vzieivwzx PEP Interpretation Triglycerides LDL Cholesterol Direct HDL Cholesterol Free T4 PTH Intact Urine WBC (Auto) 40.0 H Urine Creatinine Salicylates Acetaminophen Crossmatch 04/05/19 04/06/19 04/06/19 17:22 00:13 04:44 WBC RBC 2.48 L Hgb 7.5 L Hct 22.9 L MCV MCHC RDW 16.0 H Plt Count 107 L Lymph % (Auto) [place] % (Auto) 10.7 H Eos % (Auto) Lymph # 1.0 L [place] # Eos # Seg Neutrophils % Seg Neuts % (Manual) Lymphocytes % (Manual) Monocytes % (Manual) Nucleated RBC % Seg Neutrophils # Seg Neutrophils # Man Lymphocytes # (Manual) Monocytes # (Manual) PT INR D-Dimer Heparin Anti-Xa Level POC ABG pH ABG pH POC ABG pCO2 POC ABG pO2 ABG pO2 ABG HCO3 ABG O2 Saturation ABG Base Excess ABG Hemoglobin Oxyhemoglobin Sodium Potassium Chloride Carbon Dioxide BUN Creatinine Glucose POC Glucose 118 H 138 H Lactic Acid Calcium Ionized Calcium Phosphorus Magnesium Iron TIBC Ferritin Total Bilirubin Direct Bilirubin AST ALT Alkaline Phosphatase Total Creatine Kinase CK-MB (CK-2) Troponin T C-Reactive Protein Serum Total Protein Total Protein Albumin Ogeoa-8-Xkmhamnlp Hssfl-4-Xxezmniso PEP Interpretation Triglycerides LDL Cholesterol Direct HDL Cholesterol Free T4 PTH Intact Urine WBC (Auto) Urine Creatinine Salicylates Acetaminophen Crossmatch 04/06/19 04/06/19 04/06/19 04:44 05:20 05:23 WBC RBC Hgb Hct MCV MCHC RDW Plt Count Lymph % (Auto) [place] % (Auto) Eos % (Auto) Lymph # [place] # Eos # Seg Neutrophils % Seg Neuts % (Manual) Lymphocytes % (Manual) Monocytes % (Manual) Nucleated RBC % Seg Neutrophils # Seg Neutrophils # Man Lymphocytes # (Manual) Monocytes # (Manual) PT INR D-Dimer Heparin Anti-Xa Level POC ABG pH ABG pH POC ABG pCO2 POC ABG pO2 ABG pO2 104.0 H ABG HCO3 ABG O2 Saturation ABG Base Excess -2.1 L ABG Hemoglobin 7.3 L Oxyhemoglobin Sodium Potassium Chloride Carbon Dioxide BUN 64 H Creatinine 8.2 H Glucose 103 H POC Glucose 118 H Lactic Acid Calcium 7.3 L Ionized Calcium Phosphorus Magnesium Iron TIBC Ferritin Total Bilirubin Direct Bilirubin AST ALT Alkaline Phosphatase Total Creatine Kinase CK-MB (CK-2) Troponin T C-Reactive Protein Serum Total Protein Total Protein Albumin Hxtvn-2-Upxdyooip Csdxz-8-Htdxwivkb PEP Interpretation Triglycerides LDL Cholesterol Direct HDL Cholesterol Free T4 PTH Intact Urine WBC (Auto) Urine Creatinine Salicylates Acetaminophen Crossmatch 04/06/19 04/07/19 04/07/19 12:02 05:40 05:40 WBC RBC 2.59 L Hgb 7.9 L Hct 23.8 L MCV MCHC RDW 15.8 H Plt Count 89 L Lymph % (Auto) [place] % (Auto) 10.3 H Eos % (Auto) Lymph # 1.1 L [place] # Eos # Seg Neutrophils % Seg Neuts % (Manual) Lymphocytes % (Manual) Monocytes % (Manual) Nucleated RBC % Seg Neutrophils # Seg Neutrophils # Man Lymphocytes # (Manual) Monocytes # (Manual) PT INR D-Dimer Heparin Anti-Xa Level POC ABG pH ABG pH POC ABG pCO2 POC ABG pO2 ABG pO2 ABG HCO3 ABG O2 Saturation ABG Base Excess ABG Hemoglobin Oxyhemoglobin Sodium 136 L Potassium 3.5 L Chloride Carbon Dioxide BUN 46 H Creatinine 6.2 H Glucose POC Glucose 108 H Lactic Acid Calcium 7.9 L Ionized Calcium Phosphorus Magnesium Iron TIBC Ferritin Total Bilirubin Direct Bilirubin AST ALT Alkaline Phosphatase Total Creatine Kinase CK-MB (CK-2) Troponin T C-Reactive Protein Serum Total Protein Total Protein Albumin Jaibx-3-Ytdtalgfd Wakjx-9-Hczkpsdrq PEP Interpretation Triglycerides LDL Cholesterol Direct HDL Cholesterol Free T4 PTH Intact Urine WBC (Auto) Urine Creatinine Salicylates Acetaminophen Crossmatch 04/07/19 04/09/19 04/09/19 12:57 04:28 04:28 WBC RBC 2.85 L Hgb 8.7 L Hct 26.2 L MCV MCHC RDW 15.6 H Plt Count Lymph % (Auto) [place] % (Auto) 10.4 H Eos % (Auto) Lymph # 1.0 L [place] # Eos # Seg Neutrophils % 73.3 H Seg Neuts % (Manual) Lymphocytes % (Manual) Monocytes % (Manual) Nucleated RBC % Seg Neutrophils # Seg Neutrophils # Man Lymphocytes # (Manual) Monocytes # (Manual) PT INR D-Dimer Heparin Anti-Xa Level POC ABG pH ABG pH POC ABG pCO2 POC ABG pO2 107 H ABG pO2 ABG HCO3 ABG O2 Saturation ABG Base Excess ABG Hemoglobin Oxyhemoglobin Sodium Potassium 3.5 L Chloride 97.8 L Carbon Dioxide BUN 62 H Creatinine 8.1 H Glucose POC Glucose Lactic Acid Calcium 8.2 L Ionized Calcium Phosphorus 5.10 H Magnesium Iron TIBC Ferritin Total Bilirubin Direct Bilirubin AST ALT Alkaline Phosphatase Total Creatine Kinase CK-MB (CK-2) Troponin T C-Reactive Protein Serum Total Protein Total Protein Albumin Dahuy-8-Yqkxvqofn Yequm-8-Qzewsdlmf PEP Interpretation Triglycerides LDL Cholesterol Direct HDL Cholesterol Free T4 PTH Intact Urine WBC (Auto) Urine Creatinine Salicylates Acetaminophen Crossmatch 04/10/19 04/11/19 04/11/19 18:15 00:25 04:16 WBC 11.5 H RBC 2.91 L Hgb 8.9 L Hct 27.6 L MCV 95 H MCHC RDW 17.5 H Plt Count Lymph % (Auto) [place] % (Auto) Eos % (Auto) Lymph # [place] # Eos # Seg Neutrophils % Seg Neuts % (Manual) 71.0 H Lymphocytes % (Manual) Monocytes % (Manual) 8.0 H Nucleated RBC % Seg Neutrophils # Seg Neutrophils # Man 8.2 H Lymphocytes # (Manual) Monocytes # (Manual) 0.9 H PT INR D-Dimer Heparin Anti-Xa Level POC ABG pH ABG pH POC ABG pCO2 POC ABG pO2 ABG pO2 ABG HCO3 ABG O2 Saturation ABG Base Excess ABG Hemoglobin Oxyhemoglobin Sodium Potassium Chloride Carbon Dioxide BUN Creatinine Glucose POC Glucose 109 H 114 H Lactic Acid Calcium Ionized Calcium Phosphorus Magnesium Iron TIBC Ferritin Total Bilirubin Direct Bilirubin AST ALT Alkaline Phosphatase Total Creatine Kinase CK-MB (CK-2) Troponin T C-Reactive Protein Serum Total Protein Total Protein Albumin Jffwu-4-Lpirkreeq Bhekc-7-Xupcjkjtk PEP Interpretation Triglycerides LDL Cholesterol Direct HDL Cholesterol Free T4 PTH Intact Urine WBC (Auto) Urine Creatinine Salicylates Acetaminophen Crossmatch 04/11/19 04/11/19 04/11/19 06:47 09:21 12:15 WBC RBC Hgb Hct MCV MCHC RDW Plt Count Lymph % (Auto) [place] % (Auto) Eos % (Auto) Lymph # [place] # Eos # Seg Neutrophils % Seg Neuts % (Manual) Lymphocytes % (Manual) Monocytes % (Manual) Nucleated RBC % Seg Neutrophils # Seg Neutrophils # Man Lymphocytes # (Manual) Monocytes # (Manual) PT INR D-Dimer Heparin Anti-Xa Level POC ABG pH ABG pH POC ABG pCO2 POC ABG pO2 ABG pO2 ABG HCO3 ABG O2 Saturation ABG Base Excess ABG Hemoglobin Oxyhemoglobin Sodium Potassium 3.5 L Chloride Carbon Dioxide BUN 45 H Creatinine 6.0 H Glucose 113 H POC Glucose 106 H 109 H Lactic Acid Calcium Ionized Calcium Phosphorus Magnesium Iron TIBC Ferritin Total Bilirubin Direct Bilirubin AST ALT Alkaline Phosphatase Total Creatine Kinase CK-MB (CK-2) Troponin T C-Reactive Protein Serum Total Protein Total Protein Albumin Vnqaq-8-Vfknzvsij Mvdrs-1-Lrobakgzx PEP Interpretation Triglycerides LDL Cholesterol Direct HDL Cholesterol Free T4 PTH Intact Urine WBC (Auto) Urine Creatinine Salicylates Acetaminophen Crossmatch 04/11/19 04/12/19 04/12/19 18:42 12:13 23:52 WBC RBC Hgb Hct MCV MCHC RDW Plt Count Lymph % (Auto) [place] % (Auto) Eos % (Auto) Lymph # [place] # Eos # Seg Neutrophils % Seg Neuts % (Manual) Lymphocytes % (Manual) Monocytes % (Manual) Nucleated RBC % Seg Neutrophils # Seg Neutrophils # Man Lymphocytes # (Manual) Monocytes # (Manual) PT INR D-Dimer Heparin Anti-Xa Level POC ABG pH ABG pH POC ABG pCO2 POC ABG pO2 ABG pO2 ABG HCO3 ABG O2 Saturation ABG Base Excess ABG Hemoglobin Oxyhemoglobin Sodium Potassium Chloride Carbon Dioxide BUN Creatinine Glucose POC Glucose 107 H 115 H 124 H Lactic Acid Calcium Ionized Calcium Phosphorus Magnesium Iron TIBC Ferritin Total Bilirubin Direct Bilirubin AST ALT Alkaline Phosphatase Total Creatine Kinase CK-MB (CK-2) Troponin T C-Reactive Protein Serum Total Protein Total Protein Albumin Vqzvd-3-Wwfoqdtff Cynkt-0-Rtyxpglbz PEP Interpretation Triglycerides LDL Cholesterol Direct HDL Cholesterol Free T4 PTH Intact Urine WBC (Auto) Urine Creatinine Salicylates Acetaminophen Crossmatch 04/13/19 04/13/19 04/13/19 05:00 05:00 05:47 WBC 11.7 H RBC 2.97 L Hgb 8.8 L Hct 27.3 L MCV MCHC RDW 16.1 H Plt Count Lymph % (Auto) 9.5 L [place] % (Auto) 9.9 H Eos % (Auto) Lymph # 1.1 L [place] # 1.2 H Eos # Seg Neutrophils % 78.6 H Seg Neuts % (Manual) Lymphocytes % (Manual) Monocytes % (Manual) Nucleated RBC % Seg Neutrophils # 9.2 H Seg Neutrophils # Man Lymphocytes # (Manual) Monocytes # (Manual) PT INR D-Dimer Heparin Anti-Xa Level POC ABG pH ABG pH POC ABG pCO2 POC ABG pO2 ABG pO2 ABG HCO3 ABG O2 Saturation ABG Base Excess ABG Hemoglobin Oxyhemoglobin Sodium Potassium 3.5 L Chloride Carbon Dioxide BUN 42 H Creatinine 4.6 H Glucose 106 H POC Glucose 107 H Lactic Acid Calcium 10.6 H D Ionized Calcium Phosphorus 5.90 H Magnesium Iron TIBC Ferritin Total Bilirubin Direct Bilirubin AST ALT Alkaline Phosphatase Total Creatine Kinase CK-MB (CK-2) Troponin T C-Reactive Protein Serum Total Protein Total Protein 5.8 L Albumin 2.5 L Fmtol-5-Vjmmfhvam Dkfoo-7-Zyeitrfcu PEP Interpretation Triglycerides LDL Cholesterol Direct HDL Cholesterol Free T4 PTH Intact Urine WBC (Auto) Urine Creatinine Salicylates Acetaminophen Crossmatch 04/13/19 04/14/19 04/14/19 17:32 00:00 03:55 WBC RBC Hgb Hct MCV MCHC RDW Plt Count Lymph % (Auto) [place] % (Auto) Eos % (Auto) Lymph # [place] # Eos # Seg Neutrophils % Seg Neuts % (Manual) Lymphocytes % (Manual) Monocytes % (Manual) Nucleated RBC % Seg Neutrophils # Seg Neutrophils # Man Lymphocytes # (Manual) Monocytes # (Manual) PT INR D-Dimer Heparin Anti-Xa Level POC ABG pH ABG pH POC ABG pCO2 POC ABG pO2 ABG pO2 ABG HCO3 ABG O2 Saturation ABG Base Excess ABG Hemoglobin Oxyhemoglobin Sodium Potassium 3.0 L Chloride Carbon Dioxide BUN 30 H Creatinine 3.1 H Glucose POC Glucose 112 H 120 H Lactic Acid Calcium 10.8 H Ionized Calcium Phosphorus Magnesium Iron TIBC Ferritin Total Bilirubin Direct Bilirubin AST ALT Alkaline Phosphatase Total Creatine Kinase CK-MB (CK-2) Troponin T C-Reactive Protein Serum Total Protein Total Protein Albumin Rqvpa-8-Xabzwtxuy Hgbns-8-Adebcewxg PEP Interpretation Triglycerides LDL Cholesterol Direct HDL Cholesterol Free T4 PTH Intact Urine WBC (Auto) Urine Creatinine Salicylates Acetaminophen Crossmatch 04/14/19 04/14/19 04/15/19 11:56 23:28 05:11 WBC 13.0 H RBC 2.93 L Hgb 8.6 L Hct 26.5 L MCV MCHC RDW 16.5 H Plt Count Lymph % (Auto) 12.2 L [place] % (Auto) 9.1 H Eos % (Auto) Lymph # [place] # 1.2 H Eos # Seg Neutrophils % 77.6 H Seg Neuts % (Manual) Lymphocytes % (Manual) Monocytes % (Manual) Nucleated RBC % Seg Neutrophils # 10.1 H Seg Neutrophils # Man Lymphocytes # (Manual) Monocytes # (Manual) PT INR D-Dimer Heparin Anti-Xa Level POC ABG pH ABG pH POC ABG pCO2 POC ABG pO2 ABG pO2 ABG HCO3 ABG O2 Saturation ABG Base Excess ABG Hemoglobin Oxyhemoglobin Sodium Potassium Chloride Carbon Dioxide BUN Creatinine Glucose POC Glucose 109 H 112 H Lactic Acid Calcium Ionized Calcium Phosphorus Magnesium Iron TIBC Ferritin Total Bilirubin Direct Bilirubin AST ALT Alkaline Phosphatase Total Creatine Kinase CK-MB (CK-2) Troponin T C-Reactive Protein Serum Total Protein Total Protein Albumin Huzod-1-Jdjncbaac Mftvk-9-Svgfoufoj PEP Interpretation Triglycerides LDL Cholesterol Direct HDL Cholesterol Free T4 PTH Intact Urine WBC (Auto) Urine Creatinine Salicylates Acetaminophen Crossmatch 04/15/19 04/15/19 04/15/19 05:11 05:31 18:03 WBC RBC Hgb Hct MCV MCHC RDW Plt Count Lymph % (Auto) [place] % (Auto) Eos % (Auto) Lymph # [place] # Eos # Seg Neutrophils % Seg Neuts % (Manual) Lymphocytes % (Manual) Monocytes % (Manual) Nucleated RBC % Seg Neutrophils # Seg Neutrophils # Man Lymphocytes # (Manual) Monocytes # (Manual) PT INR D-Dimer Heparin Anti-Xa Level POC ABG pH ABG pH POC ABG pCO2 POC ABG pO2 ABG pO2 ABG HCO3 ABG O2 Saturation ABG Base Excess ABG Hemoglobin Oxyhemoglobin Sodium Potassium 3.2 L Chloride Carbon Dioxide BUN 44 H Creatinine 3.6 H Glucose 106 H POC Glucose 110 H 121 H Lactic Acid Calcium 12.0 H Ionized Calcium Phosphorus 5.00 H Magnesium Iron TIBC Ferritin Total Bilirubin Direct Bilirubin AST ALT Alkaline Phosphatase Total Creatine Kinase CK-MB (CK-2) Troponin T C-Reactive Protein Serum Total Protein Total Protein Albumin Uavzm-2-Ukyrmkmkp Wteqk-6-Qflfrxxvi PEP Interpretation Triglycerides LDL Cholesterol Direct HDL Cholesterol Free T4 PTH Intact Urine WBC (Auto) Urine Creatinine Salicylates Acetaminophen Crossmatch 04/16/19 04/16/19 04/17/19 05:07 05:07 04:15 WBC 12.6 H RBC 3.12 L Hgb 9.0 L Hct 28.2 L MCV MCHC RDW 16.6 H Plt Count Lymph % (Auto) 10.3 L [place] % (Auto) 9.8 H Eos % (Auto) Lymph # [place] # 1.2 H Eos # Seg Neutrophils % 78.2 H Seg Neuts % (Manual) Lymphocytes % (Manual) Monocytes % (Manual) Nucleated RBC % Seg Neutrophils # 9.9 H Seg Neutrophils # Man Lymphocytes # (Manual) Monocytes # (Manual) PT INR D-Dimer Heparin Anti-Xa Level POC ABG pH ABG pH POC ABG pCO2 POC ABG pO2 ABG pO2 ABG HCO3 ABG O2 Saturation ABG Base Excess ABG Hemoglobin Oxyhemoglobin Sodium 147 H 150 H Potassium 3.5 L 3.1 L Chloride Carbon Dioxide 32 H BUN 54 H 65 H Creatinine 3.8 H 4.0 H Glucose 102 H 107 H POC Glucose Lactic Acid Calcium 11.7 H 12.0 H Ionized Calcium Phosphorus 5.40 H Magnesium Iron TIBC Ferritin Total Bilirubin Direct Bilirubin AST ALT Alkaline Phosphatase Total Creatine Kinase CK-MB (CK-2) Troponin T C-Reactive Protein 7.10 H Serum Total Protein Total Protein Albumin Bepyy-1-Tpmckppdg Pjxje-7-Qbhwtqvwu PEP Interpretation Triglycerides LDL Cholesterol Direct HDL Cholesterol Free T4 PTH Intact Urine WBC (Auto) Urine Creatinine Salicylates Acetaminophen Crossmatch 04/17/19 04/17/19 04/17/19 04:15 06:05 12:49 WBC 15.8 H RBC 3.32 L Hgb 9.5 L Hct 29.9 L MCV MCHC RDW 16.9 H Plt Count Lymph % (Auto) 12.6 L [place] % (Auto) 11.1 H Eos % (Auto) Lymph # [place] # 1.7 H Eos # Seg Neutrophils % 74.7 H Seg Neuts % (Manual) Lymphocytes % (Manual) Monocytes % (Manual) Nucleated RBC % Seg Neutrophils # 11.8 H Seg Neutrophils # Man Lymphocytes # (Manual) Monocytes # (Manual) PT INR D-Dimer Heparin Anti-Xa Level POC ABG pH ABG pH POC ABG pCO2 POC ABG pO2 ABG pO2 ABG HCO3 ABG O2 Saturation ABG Base Excess ABG Hemoglobin Oxyhemoglobin Sodium Potassium Chloride Carbon Dioxide BUN Creatinine Glucose POC Glucose 111 H 108 H Lactic Acid Calcium Ionized Calcium Phosphorus Magnesium Iron TIBC Ferritin Total Bilirubin Direct Bilirubin AST ALT Alkaline Phosphatase Total Creatine Kinase CK-MB (CK-2) Troponin T C-Reactive Protein Serum Total Protein Total Protein Albumin Lgmif-0-Cwphmssli Viilo-1-Qyzzuevpt PEP Interpretation Triglycerides LDL Cholesterol Direct HDL Cholesterol Free T4 PTH Intact Urine WBC (Auto) Urine Creatinine Salicylates Acetaminophen Crossmatch 04/18/19 04/18/19 04/18/19 00:23 04:41 04:41 WBC 19.4 H RBC 3.03 L Hgb 8.6 L Hct 27.5 L MCV MCHC 31 L RDW 16.9 H Plt Count Lymph % (Auto) [place] % (Auto) Eos % (Auto) Lymph # [place] # Eos # Seg Neutrophils % Seg Neuts % (Manual) Lymphocytes % (Manual) Monocytes % (Manual) Nucleated RBC % Seg Neutrophils # Seg Neutrophils # Man Lymphocytes # (Manual) Monocytes # (Manual) PT INR D-Dimer Heparin Anti-Xa Level POC ABG pH ABG pH POC ABG pCO2 POC ABG pO2 ABG pO2 ABG HCO3 ABG O2 Saturation ABG Base Excess ABG Hemoglobin Oxyhemoglobin Sodium 152 H Potassium 3.0 L Chloride Carbon Dioxide BUN 80 H Creatinine 4.3 H Glucose 103 H POC Glucose 115 H Lactic Acid Calcium 11.4 H Ionized Calcium Phosphorus Magnesium Iron TIBC Ferritin Total Bilirubin Direct Bilirubin AST ALT Alkaline Phosphatase Total Creatine Kinase CK-MB (CK-2) Troponin T C-Reactive Protein Serum Total Protein Total Protein Albumin Vkunn-3-Bjpvzcobu Hplen-9-Hkearxaqx PEP Interpretation Triglycerides LDL Cholesterol Direct HDL Cholesterol Free T4 PTH Intact Urine WBC (Auto) Urine Creatinine Salicylates Acetaminophen Crossmatch 04/18/19 04/18/19 04/18/19 06:17 12:16 18:10 WBC RBC Hgb Hct MCV MCHC RDW Plt Count Lymph % (Auto) [place] % (Auto) Eos % (Auto) Lymph # [place] # Eos # Seg Neutrophils % Seg Neuts % (Manual) Lymphocytes % (Manual) Monocytes % (Manual) Nucleated RBC % Seg Neutrophils # Seg Neutrophils # Man Lymphocytes # (Manual) Monocytes # (Manual) PT INR D-Dimer Heparin Anti-Xa Level POC ABG pH ABG pH POC ABG pCO2 POC ABG pO2 ABG pO2 ABG HCO3 ABG O2 Saturation ABG Base Excess ABG Hemoglobin Oxyhemoglobin Sodium Potassium Chloride Carbon Dioxide BUN Creatinine Glucose POC Glucose 124 H 119 H 111 H Lactic Acid Calcium Ionized Calcium Phosphorus Magnesium Iron TIBC Ferritin Total Bilirubin Direct Bilirubin AST ALT Alkaline Phosphatase Total Creatine Kinase CK-MB (CK-2) Troponin T C-Reactive Protein Serum Total Protein Total Protein Albumin Vqyha-9-Pxwqbenwq Ljwou-8-Dzuycmqpf PEP Interpretation Triglycerides LDL Cholesterol Direct HDL Cholesterol Free T4 PTH Intact Urine WBC (Auto) Urine Creatinine Salicylates Acetaminophen Crossmatch 04/19/19 04/19/19 04/20/19 03:49 05:27 09:09 WBC RBC Hgb Hct MCV MCHC RDW Plt Count Lymph % (Auto) [place] % (Auto) Eos % (Auto) Lymph # [place] # Eos # Seg Neutrophils % Seg Neuts % (Manual) Lymphocytes % (Manual) Monocytes % (Manual) Nucleated RBC % Seg Neutrophils # Seg Neutrophils # Man Lymphocytes # (Manual) Monocytes # (Manual) PT INR D-Dimer Heparin Anti-Xa Level POC ABG pH ABG pH POC ABG pCO2 POC ABG pO2 ABG pO2 ABG HCO3 ABG O2 Saturation ABG Base Excess ABG Hemoglobin Oxyhemoglobin Sodium 147 H 150 H Potassium 3.3 L Chloride 108.9 H Carbon Dioxide BUN 45 H 70 H Creatinine 2.9 H 4.1 H Glucose 105 H POC Glucose 124 H Lactic Acid Calcium 10.6 H 11.6 H Ionized Calcium Phosphorus Magnesium Iron TIBC Ferritin Total Bilirubin Direct Bilirubin AST ALT Alkaline Phosphatase Total Creatine Kinase CK-MB (CK-2) Troponin T C-Reactive Protein Serum Total Protein Total Protein Albumin Hpdbr-1-Xtopxlopy Ybypd-2-Vjixlzjnx PEP Interpretation Triglycerides LDL Cholesterol Direct HDL Cholesterol Free T4 PTH Intact Urine WBC (Auto) Urine Creatinine Salicylates Acetaminophen Crossmatch 04/20/19 04/20/19 04/21/19 12:29 18:45 01:34 WBC RBC Hgb Hct MCV MCHC RDW Plt Count Lymph % (Auto) [place] % (Auto) Eos % (Auto) Lymph # [place] # Eos # Seg Neutrophils % Seg Neuts % (Manual) Lymphocytes % (Manual) Monocytes % (Manual) Nucleated RBC % Seg Neutrophils # Seg Neutrophils # Man Lymphocytes # (Manual) Monocytes # (Manual) PT INR D-Dimer Heparin Anti-Xa Level POC ABG pH ABG pH POC ABG pCO2 POC ABG pO2 ABG pO2 ABG HCO3 ABG O2 Saturation ABG Base Excess ABG Hemoglobin Oxyhemoglobin Sodium Potassium Chloride Carbon Dioxide BUN 40 H Creatinine 2.6 H Glucose 104 H POC Glucose 131 H 134 H Lactic Acid Calcium 11.0 H Ionized Calcium Phosphorus Magnesium Iron TIBC Ferritin Total Bilirubin Direct Bilirubin AST ALT Alkaline Phosphatase Total Creatine Kinase CK-MB (CK-2) Troponin T C-Reactive Protein Serum Total Protein Total Protein Albumin Jpcdd-7-Adcclkywz Abakj-9-Jqwuiskad PEP Interpretation Triglycerides LDL Cholesterol Direct HDL Cholesterol Free T4 PTH Intact Urine WBC (Auto) Urine Creatinine Salicylates Acetaminophen Crossmatch 04/21/19 04/21/19 04/22/19 04:22 04:22 04:24 WBC 14.2 H 14.3 H RBC 3.02 L 3.57 L Hgb 8.7 L 10.1 L Hct 27.2 L 32.1 L MCV MCHC RDW 16.7 H 17.2 H Plt Count Lymph % (Auto) [place] % (Auto) Eos % (Auto) Lymph # [place] # Eos # Seg Neutrophils % Seg Neuts % (Manual) Lymphocytes % (Manual) Monocytes % (Manual) Nucleated RBC % Seg Neutrophils # Seg Neutrophils # Man Lymphocytes # (Manual) Monocytes # (Manual) PT INR D-Dimer Heparin Anti-Xa Level POC ABG pH ABG pH POC ABG pCO2 POC ABG pO2 ABG pO2 ABG HCO3 ABG O2 Saturation ABG Base Excess ABG Hemoglobin Oxyhemoglobin Sodium Potassium Chloride Carbon Dioxide BUN Creatinine Glucose POC Glucose Lactic Acid Calcium Ionized Calcium Phosphorus Magnesium Iron TIBC Ferritin Total Bilirubin Direct Bilirubin AST ALT Alkaline Phosphatase Total Creatine Kinase CK-MB (CK-2) Troponin T C-Reactive Protein Serum Total Protein 5.7 L Total Protein Albumin 2.3 L Winaz-6-Oolxkznzm 0.5 H Unzkg-4-Mslxphfhz 1.0 H PEP Interpretation see below H Triglycerides LDL Cholesterol Direct HDL Cholesterol Free T4 PTH Intact Urine WBC (Auto) Urine Creatinine Salicylates Acetaminophen Crossmatch 04/22/19 04/22/19 04/22/19 04:24 06:37 11:57 WBC RBC Hgb Hct MCV MCHC RDW Plt Count Lymph % (Auto) [place] % (Auto) Eos % (Auto) Lymph # [place] # Eos # Seg Neutrophils % Seg Neuts % (Manual) Lymphocytes % (Manual) Monocytes % (Manual) Nucleated RBC % Seg Neutrophils # Seg Neutrophils # Man Lymphocytes # (Manual) Monocytes # (Manual) PT INR D-Dimer Heparin Anti-Xa Level POC ABG pH ABG pH POC ABG pCO2 POC ABG pO2 ABG pO2 ABG HCO3 ABG O2 Saturation ABG Base Excess ABG Hemoglobin Oxyhemoglobin Sodium Potassium Chloride Carbon Dioxide BUN 54 H Creatinine 3.5 H Glucose POC Glucose 113 H 110 H Lactic Acid Calcium 11.4 H Ionized Calcium Phosphorus Magnesium Iron TIBC Ferritin Total Bilirubin Direct Bilirubin AST ALT Alkaline Phosphatase Total Creatine Kinase CK-MB (CK-2) Troponin T C-Reactive Protein Serum Total Protein Total Protein Albumin Kfier-5-Lvispnuhc Slwxi-5-Hhgutxgdv PEP Interpretation Triglycerides LDL Cholesterol Direct HDL Cholesterol Free T4 PTH Intact Urine WBC (Auto) Urine Creatinine Salicylates Acetaminophen Crossmatch 04/22/19 04/23/19 04/23/19 18:33 04:06 04:06 WBC 16.1 H RBC 3.36 L Hgb 9.8 L Hct 30.8 L MCV MCHC RDW 17.7 H Plt Count Lymph % (Auto) 9.9 L [place] % (Auto) Eos % (Auto) Lymph # [place] # Eos # Seg Neutrophils % 84.2 H Seg Neuts % (Manual) Lymphocytes % (Manual) Monocytes % (Manual) Nucleated RBC % Seg Neutrophils # 13.6 H Seg Neutrophils # Man Lymphocytes # (Manual) Monocytes # (Manual) PT INR D-Dimer Heparin Anti-Xa Level POC ABG pH ABG pH POC ABG pCO2 POC ABG pO2 ABG pO2 ABG HCO3 ABG O2 Saturation ABG Base Excess ABG Hemoglobin Oxyhemoglobin Sodium Potassium Chloride Carbon Dioxide BUN 59 H Creatinine 3.8 H Glucose POC Glucose 120 H Lactic Acid Calcium 12.3 H* Ionized Calcium Phosphorus 5.70 H Magnesium Iron TIBC Ferritin Total Bilirubin Direct Bilirubin AST ALT Alkaline Phosphatase Total Creatine Kinase CK-MB (CK-2) Troponin T C-Reactive Protein Serum Total Protein Total Protein Albumin 3.2 L Urito-2-Hdljuaixj Zylnr-2-Kijoisdus PEP Interpretation Triglycerides LDL Cholesterol Direct HDL Cholesterol Free T4 PTH Intact Urine WBC (Auto) Urine Creatinine Salicylates Acetaminophen Crossmatch 04/23/19 04/24/19 04/24/19 18:06 04:12 04:12 WBC 18.0 H RBC 3.46 L Hgb 9.8 L Hct 31.2 L MCV MCHC 31 L RDW 17.5 H Plt Count Lymph % (Auto) 11.1 L [place] % (Auto) Eos % (Auto) Lymph # [place] # Eos # Seg Neutrophils % 81.9 H Seg Neuts % (Manual) Lymphocytes % (Manual) Monocytes % (Manual) Nucleated RBC % Seg Neutrophils # 14.7 H Seg Neutrophils # Man Lymphocytes # (Manual) Monocytes # (Manual) PT INR D-Dimer Heparin Anti-Xa Level POC ABG pH ABG pH POC ABG pCO2 POC ABG pO2 ABG pO2 ABG HCO3 ABG O2 Saturation ABG Base Excess ABG Hemoglobin Oxyhemoglobin Sodium Potassium Chloride Carbon Dioxide BUN 56 H Creatinine 3.6 H Glucose POC Glucose 124 H Lactic Acid Calcium 12.6 H* Ionized Calcium Phosphorus Magnesium Iron TIBC Ferritin Total Bilirubin Direct Bilirubin AST ALT Alkaline Phosphatase Total Creatine Kinase CK-MB (CK-2) Troponin T C-Reactive Protein Serum Total Protein Total Protein Albumin 3.2 L Hunln-1-Vifsgmaqt Rkytu-1-Tjjnqcpwf PEP Interpretation Triglycerides LDL Cholesterol Direct HDL Cholesterol Free T4 PTH Intact Urine WBC (Auto) Urine Creatinine Salicylates Acetaminophen Crossmatch 04/24/19 04/24/19 04/25/19 06:21 11:47 05:58 WBC 18.0 H RBC 2.98 L Hgb 8.3 L Hct 26.5 L MCV MCHC 31 L RDW 17.9 H Plt Count Lymph % (Auto) 10.1 L [place] % (Auto) Eos % (Auto) Lymph # [place] # 0.9 H Eos # Seg Neutrophils % 82.8 H Seg Neuts % (Manual) Lymphocytes % (Manual) Monocytes % (Manual) Nucleated RBC % Seg Neutrophils # 15.0 H Seg Neutrophils # Man Lymphocytes # (Manual) Monocytes # (Manual) PT INR D-Dimer Heparin Anti-Xa Level POC ABG pH ABG pH POC ABG pCO2 POC ABG pO2 ABG pO2 ABG HCO3 ABG O2 Saturation ABG Base Excess ABG Hemoglobin Oxyhemoglobin Sodium Potassium Chloride Carbon Dioxide BUN Creatinine Glucose POC Glucose 132 H 106 H Lactic Acid Calcium Ionized Calcium Phosphorus Magnesium Iron TIBC Ferritin Total Bilirubin Direct Bilirubin AST ALT Alkaline Phosphatase Total Creatine Kinase CK-MB (CK-2) Troponin T C-Reactive Protein Serum Total Protein Total Protein Albumin Eomkw-0-Sdayaadrb Tnshb-3-Eetpsdpuk PEP Interpretation Triglycerides LDL Cholesterol Direct HDL Cholesterol Free T4 PTH Intact Urine WBC (Auto) Urine Creatinine Salicylates Acetaminophen Crossmatch 04/25/19 04/26/19 04/26/19 05:58 05:57 06:08 WBC RBC Hgb Hct MCV MCHC RDW Plt Count Lymph % (Auto) [place] % (Auto) Eos % (Auto) Lymph # [place] # Eos # Seg Neutrophils % Seg Neuts % (Manual) Lymphocytes % (Manual) Monocytes % (Manual) Nucleated RBC % Seg Neutrophils # Seg Neutrophils # Man Lymphocytes # (Manual) Monocytes # (Manual) PT INR D-Dimer Heparin Anti-Xa Level POC ABG pH ABG pH POC ABG pCO2 POC ABG pO2 ABG pO2 ABG HCO3 ABG O2 Saturation ABG Base Excess ABG Hemoglobin Oxyhemoglobin Sodium Potassium 3.2 L Chloride Carbon Dioxide BUN 52 H 48 H Creatinine 3.2 H 2.9 H Glucose 108 H 112 H POC Glucose 109 H Lactic Acid Calcium 11.4 H 12.5 H* Ionized Calcium Phosphorus 5.90 H Magnesium Iron TIBC Ferritin Total Bilirubin Direct Bilirubin AST ALT Alkaline Phosphatase Total Creatine Kinase CK-MB (CK-2) Troponin T C-Reactive Protein Serum Total Protein Total Protein Albumin 3.0 L Bcxqo-6-Ohrekrsuc Npmgh-0-Zdqqjlzai PEP Interpretation Triglycerides LDL Cholesterol Direct HDL Cholesterol Free T4 PTH Intact Urine WBC (Auto) Urine Creatinine Salicylates Acetaminophen Crossmatch 04/26/19 04/26/19 04/27/19 07:22 13:39 05:05 WBC 11.9 H RBC 3.01 L Hgb 8.6 L Hct 26.3 L MCV MCHC RDW 17.6 H Plt Count Lymph % (Auto) 11.9 L [place] % (Auto) Eos % (Auto) Lymph # [place] # Eos # Seg Neutrophils % 78.3 H Seg Neuts % (Manual) Lymphocytes % (Manual) Monocytes % (Manual) Nucleated RBC % Seg Neutrophils # 9.4 H Seg Neutrophils # Man Lymphocytes # (Manual) Monocytes # (Manual) PT INR D-Dimer Heparin Anti-Xa Level POC ABG pH ABG pH POC ABG pCO2 POC ABG pO2 ABG pO2 ABG HCO3 ABG O2 Saturation ABG Base Excess ABG Hemoglobin Oxyhemoglobin Sodium Potassium Chloride Carbon Dioxide BUN 46 H Creatinine 2.8 H Glucose POC Glucose Lactic Acid Calcium > 13.0 H* 12.2 H* Ionized Calcium Phosphorus Magnesium Iron TIBC Ferritin Total Bilirubin Direct Bilirubin AST ALT Alkaline Phosphatase Total Creatine Kinase CK-MB (CK-2) Troponin T C-Reactive Protein Serum Total Protein Total Protein Albumin Evlfp-8-Ncxnlqfxj Yobip-2-Tyvwchwwh PEP Interpretation Triglycerides LDL Cholesterol Direct HDL Cholesterol Free T4 PTH Intact Urine WBC (Auto) Urine Creatinine Salicylates Acetaminophen Crossmatch 04/27/19 04/28/19 04/29/19 05:05 05:17 14:14 WBC RBC Hgb Hct MCV MCHC RDW Plt Count Lymph % (Auto) [place] % (Auto) Eos % (Auto) Lymph # Mcdowell # Eos # Seg Neutrophils % Seg Neuts % (Manual) Lymphocytes % (Manual) Monocytes % (Manual) Nucleated RBC % Seg Neutrophils # Seg Neutrophils # Man Lymphocytes # (Manual) Monocytes # (Manual) PT INR D-Dimer Heparin Anti-Xa Level POC ABG pH ABG pH POC ABG pCO2 POC ABG pO2 ABG pO2 ABG HCO3 ABG O2 Saturation ABG Base Excess ABG Hemoglobin Oxyhemoglobin Sodium 136 L Potassium 3.2 L 3.4 L Chloride Carbon Dioxide BUN 40 H 34 H 33 H Creatinine 2.5 H 2.0 H 1.9 H Glucose 113 H 107 H POC Glucose Lactic Acid Calcium 12.3 H* 12.1 H* 11.5 H Ionized Calcium Phosphorus Magnesium Iron TIBC Ferritin Total Bilirubin Direct Bilirubin AST ALT Alkaline Phosphatase Total Creatine Kinase CK-MB (CK-2) Troponin T C-Reactive Protein Serum Total Protein Total Protein 6.2 L Albumin 2.8 L Pukch-9-Bsyvicfjk Utwae-1-Xleyuvvhy PEP Interpretation Triglycerides LDL Cholesterol Direct HDL Cholesterol Free T4 PTH Intact Urine WBC (Auto) Urine Creatinine Salicylates Acetaminophen Crossmatch 04/29/19 04/29/19 04/30/19 14:14 14:14 06:47 WBC RBC Hgb Hct MCV MCHC RDW Plt Count Lymph % (Auto) Mcdowell % (Auto) Eos % (Auto) Lymph # Mcdowell # Eos # Seg Neutrophils % Seg Neuts % (Manual) Lymphocytes % (Manual) Monocytes % (Manual) Nucleated RBC % Seg Neutrophils # Seg Neutrophils # Man Lymphocytes # (Manual) Monocytes # (Manual) PT INR D-Dimer Heparin Anti-Xa Level POC ABG pH ABG pH POC ABG pCO2 POC ABG pO2 ABG pO2 ABG HCO3 ABG O2 Saturation ABG Base Excess ABG Hemoglobin Oxyhemoglobin Sodium Potassium 3.2 L Chloride Carbon Dioxide 21 L BUN 26 H Creatinine 1.8 H Glucose POC Glucose Lactic Acid Calcium 10.8 H Ionized Calcium 7.2 H* Phosphorus Magnesium Iron TIBC Ferritin Total Bilirubin Direct Bilirubin AST ALT Alkaline Phosphatase Total Creatine Kinase CK-MB (CK-2) Troponin T C-Reactive Protein Serum Total Protein Total Protein Albumin Syiui-7-Ghnazvxdn Caqrv-4-Dnzvkxxws PEP Interpretation Triglycerides LDL Cholesterol Direct HDL Cholesterol Free T4 PTH Intact 8.83 L Urine WBC (Auto) Urine Creatinine Salicylates Acetaminophen Crossmatch 04/30/19 05/01/19 05/01/19 12:17 06:52 06:52 WBC 15.4 H RBC 3.01 L Hgb 8.4 L Hct 26.2 L MCV MCHC RDW 17.0 H Plt Count Lymph % (Auto) 8.4 L Mcdowell % (Auto) 8.9 H Eos % (Auto) Lymph # Mcdowell # 1.4 H Eos # 0.5 H Seg Neutrophils % 78.7 H Seg Neuts % (Manual) Lymphocytes % (Manual) Monocytes % (Manual) Nucleated RBC % Seg Neutrophils # 12.1 H Seg Neutrophils # Man Lymphocytes # (Manual) Monocytes # (Manual) PT INR D-Dimer Heparin Anti-Xa Level POC ABG pH ABG pH POC ABG pCO2 POC ABG pO2 ABG pO2 ABG HCO3 ABG O2 Saturation ABG Base Excess ABG Hemoglobin Oxyhemoglobin Sodium Potassium 3.0 L Chloride Carbon Dioxide BUN 22 H Creatinine Glucose POC Glucose 106 H Lactic Acid Calcium 11.2 H Ionized Calcium Phosphorus Magnesium Iron TIBC Ferritin Total Bilirubin Direct Bilirubin AST ALT Alkaline Phosphatase Total Creatine Kinase CK-MB (CK-2) Troponin T C-Reactive Protein Serum Total Protein Total Protein Albumin 3.0 L Gphfx-5-Jtuqrqeyp Oabua-3-Qlpydsdra PEP Interpretation Triglycerides LDL Cholesterol Direct HDL Cholesterol Free T4 PTH Intact Urine WBC (Auto) Urine Creatinine Salicylates Acetaminophen Crossmatch 05/01/19 05/01/19 05/02/19 06:52 18:40 05:32 WBC RBC Hgb Hct MCV MCHC RDW Plt Count Lymph % (Auto) Mcdowell % (Auto) Eos % (Auto) Lymph # Mcdowell # Eos # Seg Neutrophils % Seg Neuts % (Manual) Lymphocytes % (Manual) Monocytes % (Manual) Nucleated RBC % Seg Neutrophils # Seg Neutrophils # Man Lymphocytes # (Manual) Monocytes # (Manual) PT INR D-Dimer Heparin Anti-Xa Level POC ABG pH ABG pH POC ABG pCO2 POC ABG pO2 ABG pO2 ABG HCO3 ABG O2 Saturation ABG Base Excess ABG Hemoglobin Oxyhemoglobin Sodium Potassium Chloride Carbon Dioxide BUN Creatinine Glucose POC Glucose 169 H 109 H Lactic Acid Calcium Ionized Calcium Phosphorus Magnesium Iron TIBC Ferritin Total Bilirubin Direct Bilirubin AST ALT Alkaline Phosphatase Total Creatine Kinase CK-MB (CK-2) Troponin T C-Reactive Protein Serum Total Protein 5.7 L Total Protein Albumin 2.5 L Qrcot-9-Soczthokh 0.5 H Xxjfh-7-Aztyqoevr PEP Interpretation see below H Triglycerides LDL Cholesterol Direct HDL Cholesterol Free T4 PTH Intact Urine WBC (Auto) Urine Creatinine Salicylates Acetaminophen Crossmatch 05/02/19 05/02/19 05/02/19 05:57 05:57 11:43 WBC 14.2 H RBC 2.96 L Hgb 8.3 L Hct 26.0 L MCV MCHC RDW 16.8 H Plt Count Lymph % (Auto) Mcdowell % (Auto) Eos % (Auto) Lymph # Mcdowell # Eos # Seg Neutrophils % Seg Neuts % (Manual) Lymphocytes % (Manual) Monocytes % (Manual) Nucleated RBC % Seg Neutrophils # Seg Neutrophils # Man Lymphocytes # (Manual) Monocytes # (Manual) PT INR D-Dimer Heparin Anti-Xa Level POC ABG pH ABG pH POC ABG pCO2 POC ABG pO2 ABG pO2 ABG HCO3 ABG O2 Saturation ABG Base Excess ABG Hemoglobin Oxyhemoglobin Sodium 136 L Potassium 3.5 L Chloride Carbon Dioxide BUN 21 H Creatinine Glucose POC Glucose 108 H Lactic Acid Calcium 11.1 H Ionized Calcium Phosphorus Magnesium Iron TIBC Ferritin Total Bilirubin Direct Bilirubin AST ALT Alkaline Phosphatase Total Creatine Kinase CK-MB (CK-2) Troponin T C-Reactive Protein Serum Total Protein Total Protein Albumin Yfqmj-3-Hgtfotntf Pwnmd-3-Tcppnvezc PEP Interpretation Triglycerides LDL Cholesterol Direct HDL Cholesterol Free T4 PTH Intact Urine WBC (Auto) Urine Creatinine Salicylates Acetaminophen Crossmatch 05/03/19 05/03/19 05/04/19 05:37 05:37 06:49 WBC 12.7 H 11.1 H RBC 3.01 L 3.07 L Hgb 8.3 L 8.6 L Hct 26.1 L 26.6 L MCV MCHC RDW 16.9 H 17.3 H Plt Count Lymph % (Auto) Mcdowell % (Auto) 9.0 H Eos % (Auto) 4.9 H Lymph # Mcdowell # 1.0 H Eos # 0.5 H Seg Neutrophils % Seg Neuts % (Manual) Lymphocytes % (Manual) Monocytes % (Manual) Nucleated RBC % Seg Neutrophils # 7.8 H Seg Neutrophils # Man Lymphocytes # (Manual) Monocytes # (Manual) PT INR D-Dimer Heparin Anti-Xa Level POC ABG pH ABG pH POC ABG pCO2 POC ABG pO2 ABG pO2 ABG HCO3 ABG O2 Saturation ABG Base Excess ABG Hemoglobin Oxyhemoglobin Sodium 135 L Potassium 3.3 L Chloride Carbon Dioxide BUN Creatinine Glucose POC Glucose Lactic Acid Calcium 10.9 H Ionized Calcium Phosphorus Magnesium 1.50 L Iron TIBC Ferritin Total Bilirubin Direct Bilirubin AST ALT Alkaline Phosphatase Total Creatine Kinase CK-MB (CK-2) Troponin T C-Reactive Protein Serum Total Protein Total Protein Albumin Xggub-4-Iwdevbqjt Mqeqw-5-Cxxhspfsy PEP Interpretation Triglycerides LDL Cholesterol Direct HDL Cholesterol Free T4 PTH Intact Urine WBC (Auto) Urine Creatinine Salicylates Acetaminophen Crossmatch 05/04/19 05/04/19 05/04/19 06:49 06:49 11:58 WBC RBC Hgb Hct MCV MCHC RDW Plt Count Lymph % (Auto) Mcdowell % (Auto) Eos % (Auto) Lymph # Mcdowell # Eos # Seg Neutrophils % Seg Neuts % (Manual) Lymphocytes % (Manual) Monocytes % (Manual) Nucleated RBC % Seg Neutrophils # Seg Neutrophils # Man Lymphocytes # (Manual) Monocytes # (Manual) PT 15.5 H INR 1.24 H D-Dimer Heparin Anti-Xa Level POC ABG pH ABG pH POC ABG pCO2 POC ABG pO2 ABG pO2 ABG HCO3 ABG O2 Saturation ABG Base Excess ABG Hemoglobin Oxyhemoglobin Sodium Potassium Chloride Carbon Dioxide 19 L BUN Creatinine Glucose POC Glucose 111 H Lactic Acid Calcium 10.7 H Ionized Calcium Phosphorus Magnesium Iron TIBC Ferritin Total Bilirubin Direct Bilirubin AST ALT Alkaline Phosphatase Total Creatine Kinase CK-MB (CK-2) Troponin T C-Reactive Protein Serum Total Protein Total Protein Albumin Blsjy-6-Bpgoookst Kfqpp-3-Ndvekbcwk PEP Interpretation Triglycerides LDL Cholesterol Direct HDL Cholesterol Free T4 PTH Intact Urine WBC (Auto) Urine Creatinine Salicylates Acetaminophen Crossmatch 05/05/19 05/05/19 05/07/19 06:14 06:14 05:55 WBC 11.5 H 12.0 H RBC 3.08 L 3.33 L Hgb 8.5 L 9.2 L Hct 26.5 L 28.5 L MCV MCHC RDW 17.1 H 17.6 H Plt Count Lymph % (Auto) Mcdowell % (Auto) Eos % (Auto) 8.2 H Lymph # Mcdowell # Eos # 1.0 H Seg Neutrophils % Seg Neuts % (Manual) Lymphocytes % (Manual) Monocytes % (Manual) Nucleated RBC % Seg Neutrophils # 8.2 H Seg Neutrophils # Man Lymphocytes # (Manual) Monocytes # (Manual) PT INR D-Dimer Heparin Anti-Xa Level POC ABG pH ABG pH POC ABG pCO2 POC ABG pO2 ABG pO2 ABG HCO3 ABG O2 Saturation ABG Base Excess ABG Hemoglobin Oxyhemoglobin Sodium 136 L Potassium Chloride Carbon Dioxide 21 L BUN Creatinine Glucose POC Glucose Lactic Acid Calcium 10.3 H Ionized Calcium Phosphorus Magnesium Iron TIBC Ferritin Total Bilirubin Direct Bilirubin AST ALT Alkaline Phosphatase Total Creatine Kinase CK-MB (CK-2) Troponin T C-Reactive Protein Serum Total Protein Total Protein Albumin Ppnmt-8-Uzwzryqiq Pbzsj-1-Tduqojxzy PEP Interpretation Triglycerides LDL Cholesterol Direct HDL Cholesterol Free T4 PTH Intact Urine WBC (Auto) Urine Creatinine Salicylates Acetaminophen Crossmatch 05/07/19 05:55 WBC RBC Hgb Hct MCV MCHC RDW Plt Count Lymph % (Auto) Mcdowell % (Auto) Eos % (Auto) Lymph # Mcdowell # Eos # Seg Neutrophils % Seg Neuts % (Manual) Lymphocytes % (Manual) Monocytes % (Manual) Nucleated RBC % Seg Neutrophils # Seg Neutrophils # Man Lymphocytes # (Manual) Monocytes # (Manual) PT INR D-Dimer Heparin Anti-Xa Level POC ABG pH ABG pH POC ABG pCO2 POC ABG pO2 ABG pO2 ABG HCO3 ABG O2 Saturation ABG Base Excess ABG Hemoglobin Oxyhemoglobin Sodium Potassium 3.5 L Chloride Carbon Dioxide 20 L BUN Creatinine Glucose POC Glucose Lactic Acid Calcium 10.7 H Ionized Calcium Phosphorus Magnesium Iron TIBC Ferritin Total Bilirubin Direct Bilirubin AST ALT Alkaline Phosphatase Total Creatine Kinase CK-MB (CK-2) Troponin T C-Reactive Protein Serum Total Protein Total Protein Albumin 3.2 L Dsvts-5-Sdtlbyxjp Enjvv-1-Bkvyhhvzg PEP Interpretation Triglycerides LDL Cholesterol Direct HDL Cholesterol Free T4 PTH Intact Urine WBC (Auto) Urine Creatinine Salicylates Acetaminophen Crossmatch Allied health notes reviewed: nursing
[2019-05-07] MEDS: MELATONIN 5 MG TAB PO PRN (20:51)
[2019-05-07] MEDS: PANTOPRAZOLE 40 MG TAB PO SCH (22:01)
[2019-05-08] MEDS: METOPROLOL TARTRATE 25 MG TAB PO SCH ×3 (08:00→21:02)
[2019-05-08 08:52] LABS: Basophils # (Auto) 0.1 K/mm3 (0.0-0.1); Basophils % (Auto) 0.5 % (0.0-1.8); Eosinophils # (Auto) 1.3 K/mm3 (0.0-0.4); Eosinophils % (Auto) 10.3 % (0.0-4.3); Hematocrit 30.4 % (35.5-45.6); Hemoglobin 9.4 gm/dl (11.8-15.2); Lymphocytes # (Auto) 1.9 K/mm3 (1.2-5.4); Lymphocytes % (Auto) 14.9 % (13.4-35.0); Mean Corpuscular HGB Conc 31 % (32-34); Mean Corpuscular Volume 87 fl (84-94); Monocytes # (Auto) 0.6 K/mm3 (0.0-0.8); Monocytes % (Auto) 5.1 % (0.0-7.3); Platelet Count 336 K/mm3 (140-440); Red Cell Distribution Width 17.2 % (13.2-15.2)
[2019-05-08 09:05] LABS: Alanine Aminotransferase 16 units/L (7-56); Albumin 3.4 g/dL (3.9-5); BUN/Creatinine Ratio 13; Blood Urea Nitrogen 16 mg/dL (9-20); Calcium 10.7 mg/dL (8.4-10.2); Hemolysis Index 5
--- NOTE | 2019-05-08 09:58 | Progress Note ---
Assessment and Plan Currently stable cardiac status. EP consultation noted - no recommendations for cardiac defibrillator at this time, d/c amiodarone. Pt for EGD today. He is at moderate cardiovascular risk for endoscopy. There are no immediate cardiac contraindications to proceeding with endoscopy. Pending EGD results, consider [facility] tomorrow. The patient has been seen in conjunction with Dr. Angel who agrees with the assessment and plan of care. - Patient Problems (1) Cardiopulmonary arrest Current Visit: Yes Status: Acute (2) Acute respiratory failure Current Visit: Yes Status: Resolved Qualifiers: Respiratory failure complication: hypoxia Qualified Code(s): J96.01 - Acute respiratory failure with hypoxia (3) Paroxysmal atrial fibrillation with RVR Current Visit: Yes Status: Acute (4) SVT (supraventricular tachycardia) Current Visit: Yes Status: Resolved (5) Torsades de pointes Current Visit: Yes Status: Acute (6) Ventricular tachycardia Current Visit: Yes Status: Resolved (7) Encephalopathy Current Visit: Yes Status: Acute (8) Septic shock Current Visit: Yes Status: Resolved (9) Aspiration pneumonia Current Visit: Yes Status: Acute Qualifiers: Aspiration pneumonia type: unspecified (10) Meningitis Current Visit: Yes Status: Suspected (11) Cellulitis Current Visit: Yes Status: Acute (12) Acute renal failure Current Visit: Yes Status: Acute Qualifiers: Acute renal failure type: with acute tubular necrosis Qualified Code(s): N17.0 - Acute kidney failure with tubular necrosis (13) GI bleed Current Visit: Yes Status: Acute (14) Anemia Current Visit: Yes Status: Acute (15) Thrombocytopenia Current Visit: Yes Status: Resolved (16) DVT (deep venous thrombosis) Current Visit: Yes Status: Acute Subjective Date of service: 05/08/19 Principal diagnosis: Anemia - DVT rt IJ, GI bleeding Interval history: no current complaints. in SR. Objective Last Vital Signs Temp 97.7 F 05/08/19 05:49 Pulse 79 05/08/19 05:49 Resp 20 05/08/19 05:49 BP 144/86 05/08/19 05:49 Pulse Ox 97 05/08/19 05:49 - Physical Examination General: No Apparent Distress HEENT: Positive: PERRL, EOMI, Normocephaly, Mucus Membranes Moist Neck: Positive: neck supple, trachea midline Cardiac: Positive: Reg Rate and Rhythm, S1/S2 Lungs: Positive: Decreased Breath Sounds Neuro: Positive: Grossly Intact, Other Abdomen: Positive: Soft, Active Bowel Sounds. Negative: Tender /Rectal: Other (deferred) Skin: Positive: Clear, Wound (left arm ). Negative: Rash Musculoskeletal: Normal Range of Motion, other (LUE swollen ) Extremities: Present: normal. Absent: edema - Labs and Meds Cardiac Enzymes 05/08/19 Range/Units 07:27 AST 13 (5-40) units/L CBC 05/08/19 Range/Units 07:27 WBC 12.5 H (4.5-11.0) K/mm3 RBC 3.50 L (3.65-5.03) M/mm3 Hgb 9.4 L (11.8-15.2) gm/dl Hct 30.4 L (35.5-45.6) % Plt Count 336 (140-440) K/mm3 Lymph # 1.9 (1.2-5.4) K/mm3 Jewell # 0.6 (0.0-0.8) K/mm3 Eos # 1.3 H (0.0-0.4) K/mm3 Baso # 0.1 (0.0-0.1) K/mm3 Comprehensive Metabolic Panel 05/08/19 Range/Units 07:27 Sodium 138 (137-145) mmol/L Potassium 3.6 (3.6-5.0) mmol/L Chloride 103.0 (98-107) mmol/L Carbon Dioxide 20 L (22-30) mmol/L BUN 16 (9-20) mg/dL Creatinine 1.2 (0.8-1.5) mg/dL Glucose 78 (75-100) mg/dL Calcium 10.7 H (8.4-10.2) mg/dL AST 13 (5-40) units/L ALT 16 (7-56) units/L Alkaline Phosphatase 71 (35-129) units/L Total Protein 7.3 (6.3-8.2) g/dL Albumin 3.4 L (3.9-5) g/dL - Imaging and Cardiology Echo: report reviewed ( EF 40-45%, impaired relaxation. ) - Telemetry EKG Rhythm: Sinus Rhythm - EKG Sinus rhythms and dysrhythmias: sinus rhythm - Allied health notes Allied health notes reviewed: nursing
[2019-05-08] MEDS: AMIODARONE 200 MG TAB PO SCH (10:00)
[2019-05-08] MEDS: PANTOPRAZOLE 40 MG TAB PO SCH ×2 (10:55→21:02)
--- NOTE | 2019-05-08 12:24 | Consultation ---
History of Present Illness Consult date: 05/08/19 - History of present illness History of present illness: 43 yo male admitted with AMS. Asked to see re left AC eschar. No h/o IVDA or DM. He is not aware of an IV being placed here. Past History Past Medical History: other (Unable to obtain ) Past Surgical History: Other (Unable to obtain ) Social history: other (Reside with a friend) Family history: other (unknown) Medications and Allergies Allergies Allergy/AdvReac Type Severity Reaction Status Date / Time No Known Allergies Allergy Unverified 03/16/19 17:17 Home Medications Medication Instructions Recorded Confirmed Last Taken Type No Known Home Medications [No 04/28/19 04/28/19 Unknown History Reported Home Medications] Active Meds: Active Medications Acetaminophen (Tylenol) 650 mg PO Q4H PRN PRN Reason: Pain, Mild (1-3),temp>100.5 Last Admin: 04/30/19 11:16 Dose: 650 mg Documented by: Acetaminophen/Hydrocodone Bitart ([place] 5/325) 1 each PO Q6H PRN PRN Reason: Pain, Moderate (4-6) Last Admin: 05/07/19 20:51 Dose: 1 each Documented by: Al Hydrox/Mg Hydrox/Simethicone (Alum-Mag Hydrox-Simeth [phone]/5ml) 15 ml PO Q4H PRN PRN Reason: Indigestion Last Admin: 04/30/19 15:53 Dose: 15 ml Documented by: Albuterol (Proventil) 2.5 mg IH Q4HRT PRN PRN Reason: Shortness Of Breath Lipase/Protease/Amylase (Sanjay Purcell 10,500 Unit) 1 each FEEDTUBE PRN PRN PRN Reason: For Clogged Feeding Tube Bacitracin (Antibiotic Oint) 1 applic TP Q4H PRN PRN Reason: upper lip sore/open Dextrose (D50w (25gm) Vial) 50 gm IV Q1H PRN PRN Reason: Hypoglycemia Hydralazine HCl (Apresoline) 20 mg IV Q4H PRN PRN Reason: hypertemsion Last Admin: 04/14/19 03:11 Dose: 20 mg Documented by: Hydrophilic Ointment (Vaseline Lip Therapy) 1 applic TP Q2HR PRN PRN Reason: Dry Lips Last Admin: 04/19/19 18:24 Dose: 1 applic Documented by: Sodium Chloride (Nacl 0.9%) 100 mls @ 999 mls/hr IV NEYMAR PRN PRN Reason: Hypotension Melatonin (Melatonin) 5 mg PO QHS PRN PRN Reason: Sleep Last Admin: 05/07/19 20:51 Dose: 5 mg Documented by: Metoprolol Tartrate (Lopressor) 25 mg PO TID [facility] Last Admin: 05/08/19 08:00 Dose: Not Given Documented by: Multi-Ingred Cream/Lotion/Oil/Oint (Artificial Tears Ophth Oint) 1 applic OU Q4HR PRN PRN Reason: Dry Eye(s) Last Admin: 03/19/19 20:10 Dose: 1 applic Documented by: Pantoprazole Sodium (Protonix) 40 mg PO BID [facility] Last Admin: 05/08/19 10:55 Dose: Not Given Documented by: Simple Syrup (Simple Syrup) 15 ml FEEDTUBE PRN PRN PRN Reason: Hypoglycemia Simple Syrup (Simple Syrup) 30 ml FEEDTUBE PRN PRN PRN Reason: Hypoglycemia Last Admin: 05/01/19 17:57 Dose: 30 ml Documented by: Sodium Bicarbonate (Sodium Bicarbonate) 325 mg FEEDTUBE PRN PRN PRN Reason: For Clogged Feeding Tube Last Admin: 04/27/19 11:03 Dose: 325 mg Documented by: Review of Systems All systems: negative (none) Exam Vital Signs Pulse Resp Pulse Ox 195 H 29 H 82 L 03/16/19 15:26 03/16/19 15:26 03/16/19 15:26 - General physical appearance Positive: well developed, well nourished, no distress - Eyes Positive: PERRL, normal occular movement - ENT Positive: normal pinna, normal nares, normal mucosa, no hearing loss, no congestion - Neck Positive: no masses, no bruits, trachea midline, no venous distension - Respiratory Positive: normal expansion, normal respiratory effort, clear to auscultation - Cardiovascular Rhythm: regular Heart Sounds: Present: S1 & S2. Absent: rub, click - Extremities Extremities: no ischemia, pulses symmetrical, No edema - Breasts Breasts: deferred - Abdomen Abdomen: Present: soft, bowel sounds normal. Absent: tender, distended Hernia: none - Genitourinary Male Genitourinary: deferred - Integumentary other (There is a 4 X 6 cm dry eschar over the left AC fossa without signs of infection.) - Neurologic Neurologic: alert and oriented to time, place and person, motor strength and sensation are grossly intact - Musculoskeletal normal gait, normal posture - Psychiatric Psychiatric: appropriate mood/affect, intact judgment & insight Results - Labs 05/08/19 07:27 05/08/19 07:27 Abnormal lab results 05/08/19 05/08/19 Range/Units 07:27 07:27 WBC 12.5 H (4.5-11.0) K/mm3 RBC 3.50 L (3.65-5.03) M/mm3 Hgb 9.4 L (11.8-15.2) gm/dl Hct 30.4 L (35.5-45.6) % MCH 27 L (28-32) pg MCHC 31 L (32-34) % RDW 17.2 H (13.2-15.2) % Eos % (Auto) 10.3 H (0.0-4.3) % Eos # 1.3 H (0.0-0.4) K/mm3 Seg Neutrophils # 8.7 H (1.8-7.7) K/mm3 Carbon Dioxide 20 L (22-30) mmol/L Calcium 10.7 H (8.4-10.2) mg/dL Albumin 3.4 L (3.9-5) g/dL Diabetes panel 05/08/19 Range/Units 07:27 Sodium 138 (137-145) mmol/L Potassium 3.6 (3.6-5.0) mmol/L Chloride 103.0 (98-107) mmol/L Carbon Dioxide 20 L (22-30) mmol/L BUN 16 (9-20) mg/dL Creatinine 1.2 (0.8-1.5) mg/dL Glucose 78 (75-100) mg/dL Calcium 10.7 H (8.4-10.2) mg/dL AST 13 (5-40) units/L ALT 16 (7-56) units/L Alkaline Phosphatase 71 (35-129) units/L Total Protein 7.3 (6.3-8.2) g/dL Albumin 3.4 L (3.9-5) g/dL Calcium panel 05/08/19 Range/Units 07:27 Calcium 10.7 H (8.4-10.2) mg/dL Albumin 3.4 L (3.9-5) g/dL Pituitary panel 05/08/19 Range/Units 07:27 Sodium 138 (137-145) mmol/L Potassium 3.6 (3.6-5.0) mmol/L Chloride 103.0 (98-107) mmol/L Carbon Dioxide 20 L (22-30) mmol/L BUN 16 (9-20) mg/dL Creatinine 1.2 (0.8-1.5) mg/dL Glucose 78 (75-100) mg/dL Calcium 10.7 H (8.4-10.2) mg/dL Adrenal panel 05/08/19 Range/Units 07:27 Sodium 138 (137-145) mmol/L Potassium 3.6 (3.6-5.0) mmol/L Chloride 103.0 (98-107) mmol/L Carbon Dioxide 20 L (22-30) mmol/L BUN 16 (9-20) mg/dL Creatinine 1.2 (0.8-1.5) mg/dL Glucose 78 (75-100) mg/dL Calcium 10.7 H (8.4-10.2) mg/dL Total Bilirubin 0.30 (0.1-1.2) mg/dL AST 13 (5-40) units/L ALT 16 (7-56) units/L Alkaline Phosphatase 71 (35-129) units/L Total Protein 7.3 (6.3-8.2) g/dL Albumin 3.4 L (3.9-5) g/dL Assessment and Plan - Patient Problems (1) Wound of left upper extremity Current Visit: Yes Status: Acute Plan to address problem: 1) Pt states he is about to go down for an endoscopy and he doesn't want his wound debrided now. I will come back tomorrow to debride wound.
--- NOTE | 2019-05-08 12:28 | Progress Note ---
Assessment and Plan Assessment and plan: - Acute hypoxic respiratory failure. Was intubated, but now extubated. Now on Room air. Continue BiPAP as clinically indicated. - Atrial fibrillation. Continue Metoprolol. Cardiology following. No systemic AC regarding AFib in setting of anemia, thrombocytopenia, GI bleed. - Abnormal Lexiscan stress with ejection fraction of 45% LHC recommended. However givenrercent history of GI bleding from duodenal ulcer GI consult was obtained to further patient for suitability of antiplatelet following cardiac catheterization. Discussed with Dr. Rojas GI who planned follow-up EGD to evaluate status of pt's duodenal ulcer before making a recommendation on antiplatelets therapy following [facility]. - Acute blood loss anemia. Patient with GI bleed secondary to peptic ulcer disease. EGD completed per GI. Continue PRBCs as needed. - GI bleed/peptic ulcer disease. Continue PPI. Transfuse PRBCs as needed. - Sepsis/septic shock. Continue antibiotics per ID. Now on Zyvox and Azactam - Fever, recurrent ID following - Ischemic hepatitis/shock liver. Elevated LFTs improved. Viral hepatitis pa zoila negative. - Acute kidney injury. Patient still on hemodialysis. Patient was started on hemodialysis on 03/18/19 due to worsening metabolic acidosis and hyperkalemia. Baseline renal function is unknown. CT abdomen was negative for obstructive nephropathy. Avoid nephrotoxic agents. Continue hemodialysis per nephrology. - Toxic metabolic encephalopathy. Brain MRI showed no acute intracranial abnormality, mild nonspecific chronic white matter changes, fluid throughout the sinuses and mastoid air cells. - Swelling both upper ext L>R Doppler US : no DVT LUE - Hypokalemia. Correted Replete potassium as needed. Hypernatremia. Bumex was stopped. Follow-up [facility] Nephrology following Now resolved Na 141 today Thrombocytopenia. Etiology likely secondary to sepsis. Resolved. Rhabdomyolysis. CK normalized. Full code status Disposition. Awaiting for arrangements for SNF in [place] History Interval history: Patient with persistent fevers. She somnolent and lethargic on BiPAP Hospitalist Physical - Constitutional Vitals: Temp Pulse Resp BP Pulse Ox 98.6 F 83 19 143/98 97 05/08/19 11:32 05/08/19 11:32 05/08/19 11:32 05/08/19 11:32 05/08/19 11:32 General appearance: Present: obese - EENT Eyes: Present: PERRL, EOM intact ENT: hearing intact, clear oral mucosa, dentition normal - Neck Neck: Present: supple, normal ROM - Respiratory Respiratory effort: normal Respiratory: bilateral: CTA - Cardiovascular Rhythm: regular Heart Sounds: Present: S1 & S2. Absent: gallop, rub - Extremities Extremities: no ischemia, No edema, Full ROM - Abdominal General gastrointestinal: soft, non-tender, non-distended, normal bowel sounds - Integumentary Integumentary: Present: clear, warm, dry - Neurologic Neurologic: CNII-XII intact, moves all extremities Results - Labs CBC & Chem 7: 05/08/19 07:27 05/08/19 07:27 Labs: Laboratory Last Values WBC 12.5 K/mm3 (4.5-11.0) H 05/08/19 07:27 RBC 3.50 M/mm3 (3.65-5.03) L 05/08/19 07:27 Hgb 9.4 gm/dl (11.8-15.2) L 05/08/19 07:27 Hct 30.4 % (35.5-45.6) L 05/08/19 07:27 MCV 87 fl (84-94) 05/08/19 07:27 MCH 27 pg (28-32) L 05/08/19 07:27 MCHC 31 % (32-34) L 05/08/19 07:27 RDW 17.2 % (13.2-15.2) H 05/08/19 07:27 Plt Count 336 K/mm3 (140-440) 05/08/19 07:27 Lymph % (Auto) 14.9 % (13.4-35.0) 05/08/19 07:27 [place] % (Auto) 5.1 % (0.0-7.3) 05/08/19 07:27 Eos % (Auto) 10.3 % (0.0-4.3) H 05/08/19 07:27 Baso % (Auto) 0.5 % (0.0-1.8) 05/08/19 07:27 Lymph # 1.9 K/mm3 (1.2-5.4) 05/08/19 07:27 [place] # 0.6 K/mm3 (0.0-0.8) 05/08/19 07:27 Eos # 1.3 K/mm3 (0.0-0.4) H 05/08/19 07:27 Baso # 0.1 K/mm3 (0.0-0.1) 05/08/19 07:27 Add Manual Diff Complete 04/11/19 04:16 Total Counted 100 04/11/19 04:16 Seg Neutrophils % 69.2 % (40.0-70.0) 05/08/19 07:27 Seg Neuts % (Manual) 71.0 % (40.0-70.0) H 04/11/19 04:16 Band Neutrophils % 1.0 % 04/11/19 04:16 Lymphocytes % (Manual) 17.0 % (13.4-35.0) 04/11/19 04:16 Reactive Lymphs % (Man) 0 % 04/11/19 04:16 Monocytes % (Manual) 8.0 % (0.0-7.3) H 04/11/19 04:16 Eosinophils % (Manual) 2.0 % (0.0-4.3) 04/11/19 04:16 Basophils % (Manual) 1.0 % (0.0-1.8) 04/11/19 04:16 Metamyelocytes % 0 % 04/11/19 04:16 Myelocytes % 0 % 04/11/19 04:16 Promyelocytes % 0 % 04/11/19 04:16 Blast Cells % 0 % 04/11/19 04:16 Nucleated RBC % Not Reportable 04/11/19 04:16 Seg Neutrophils # 8.7 K/mm3 (1.8-7.7) H 05/08/19 07:27 Seg Neutrophils # Man 8.2 K/mm3 (1.8-7.7) H 04/11/19 04:16 Band Neutrophils # 0.1 K/mm3 04/11/19 04:16 Lymphocytes # (Manual) 2.0 K/mm3 (1.2-5.4) 04/11/19 04:16 Abs React Lymphs (Man) 0.0 K/mm3 04/11/19 04:16 Monocytes # (Manual) 0.9 K/mm3 (0.0-0.8) H 04/11/19 04:16 Eosinophils # (Manual) 0.2 K/mm3 (0.0-0.4) 04/11/19 04:16 Basophils # (Manual) 0.1 K/mm3 (0.0-0.1) 04/11/19 04:16 Metamyelocytes # 0.0 K/mm3 04/11/19 04:16 Myelocytes # 0.0 K/mm3 04/11/19 04:16 Promyelocytes # 0.0 K/mm3 04/11/19 04:16 Blast Cells # 0.0 K/mm3 04/11/19 04:16 WBC Morphology Not Reportable 04/11/19 04:16 Hypersegmented Neuts Not Reportable 04/11/19 04:16 Hyposegmented Neuts Not Reportable 04/11/19 04:16 Hypogranular Neuts Not Reportable 04/11/19 04:16 Smudge Cells Not Reportable 04/11/19 04:16 Toxic Granulation Not Reportable 04/11/19 04:16 Toxic Vacuolation Not Reportable 04/11/19 04:16 Dohle Bodies Not Reportable 04/11/19 04:16 Pelger-Huet Anomaly Not Reportable 04/11/19 04:16 Joyce Rods Not Reportable 04/11/19 04:16 Platelet Estimate Consistent w auto 04/11/19 04:16 Clumped Platelets Not Reportable 04/11/19 04:16 Plt Clumps, EDTA Not Reportable 04/11/19 04:16 Large Platelets Not Reportable 04/11/19 04:16 Giant Platelets Not Reportable 04/11/19 04:16 Platelet Satelliting Not Reportable 04/11/19 04:16 Plt Morphology Comment Not Reportable 04/11/19 04:16 RBC Morphology Not Reportable 04/11/19 04:16 Dimorphic RBCs Not Reportable 04/11/19 04:16 Polychromasia Not Reportable 04/11/19 04:16 Hypochromasia Not Reportable 04/11/19 04:16 Poikilocytosis Not Reportable 04/11/19 04:16 Anisocytosis Rare 04/11/19 04:16 Microcytosis Rare 04/11/19 04:16 Macrocytosis Not Reportable 04/11/19 04:16 Spherocytes Not Reportable 04/11/19 04:16 Pappenheimer Bodies Not Reportable 04/11/19 04:16 Sickle Cells Not Reportable 04/11/19 04:16 Target Cells Not Reportable 04/11/19 04:16 Tear Drop Cells Not Reportable 04/11/19 04:16 Ovalocytes Not Reportable 04/11/19 04:16 Stomatocytes Few 03/26/19 Unknown Helmet Cells Not Reportable 04/11/19 04:16 Shrestha-Pearl Bodies Not Reportable 04/11/19 04:16 [place] Rings Not Reportable 04/11/19 04:16 Pilot Cells Not Reportable 04/11/19 04:16 Bite Cells Not Reportable 04/11/19 04:16 Crenated Cell Not Reportable 04/11/19 04:16 Elliptocytes Not Reportable 04/11/19 04:16 Acanthocytes (Spur) Not Reportable 04/11/19 04:16 Rouleaux Not Reportable 04/11/19 04:16 Hemoglobin C Crystals Not Reportable 04/11/19 04:16 Schistocytes Not Reportable 04/11/19 04:16 Malaria parasites Not Reportable 04/11/19 04:16 Phil Bodies Not Reportable 04/11/19 04:16 Hem Pathologist Commnt No 04/11/19 04:16 PT 14.2 Sec. (12.2-14.9) 05/07/19 05:55 INR 1.11 (0.87-1.13) 05/07/19 05:55 APTT 26.6 Sec. (24.2-36.6) 03/28/19 12:00 Fibrinogen 226 mg/dl (211-480) 03/28/19 12:00 D-Dimer 4845.98 ng/mlDDU (0-234) H 03/28/19 12:00 Heparin Anti-Xa Level 0.23 U.I./ml (0.3-0.7) L 03/28/19 05:13 POC ABG pH 7.401 (7.35-7.45) 04/07/19 12:57 ABG pH 7.388 pH Units (7.350-7.450) 04/06/19 05:20 POC ABG pCO2 41.5 (35-45) 04/07/19 12:57 ABG pCO2 38.5 mm Hg 04/06/19 05:20 POC ABG pO2 107 (80-105) H 04/07/19 12:57 ABG pO2 104.0 mm Hg (80.0-90.0) H 04/06/19 05:20 POC ABG HCO3 25.7 (22-26 mml/L) 04/07/19 12:57 ABG HCO3 22.6 mmol/L (20.0-26.0) 04/06/19 05:20 POC ABG Total CO2 27 (23-27mmol/L) 04/07/19 12:57 POC ABG O2 Sat 98 04/07/19 12:57 ABG O2 Saturation 97.8 % (95.0-99.0) 04/06/19 05:20 ABG O2 Content 10.0 (0.0-44) 04/06/19 05:20 POC ABG Base Excess 1 ((-2) - (+3)mmol/L) 04/07/19 12:57 ABG Base Excess -2.1 mmol/L (-2.0-3.0) L 04/06/19 05:20 ABG Hemoglobin 7.3 gm/dl (14.0-18.0) L 04/06/19 05:20 ABG Carboxyhemoglobin 1.7 % (0.0-5.0) 04/06/19 05:20 ABG Methemoglobin 0.6 % (0.0-1.5) 04/06/19 05:20 Oxyhemoglobin 95.5 % (95.0-99.0) 04/06/19 05:20 FiO2 30 % 04/07/19 12:57 Sodium 138 mmol/L (137-145) 05/08/19 07:27 Potassium 3.6 mmol/L (3.6-5.0) 05/08/19 07:27 Chloride 103.0 mmol/L (98-107) 05/08/19 07:27 Carbon Dioxide 20 mmol/L (22-30) L 05/08/19 07:27 Anion Gap 19 mmol/L 05/08/19 07:27 BUN 16 mg/dL (9-20) 05/08/19 07:27 Creatinine 1.2 mg/dL (0.8-1.5) 05/08/19 07:27 Estimated GFR > 60 ml/min 05/08/19 07:27 BUN/Creatinine Ratio 13 % 05/08/19 07:27 Glucose 78 mg/dL (75-100) 05/08/19 07:27 POC Glucose 88 (70-105) 05/06/19 11:38 Lactic Acid 1.90 mmol/L (0.7-2.0) 03/21/19 21:31 Calcium 10.7 mg/dL (8.4-10.2) H 05/08/19 07:27 Ionized Calcium 7.2 mg/dL (4.8-5.6) H* 04/29/19 14:14 Phosphorus 2.80 mg/dL (2.5-4.5) 05/03/19 05:37 Magnesium 2.20 mg/dL (1.7-2.3) 05/04/19 06:49 Iron 26 ug/dL (49-181) L 04/02/19 05:03 TIBC 138 mcg/dL (250-450) L 04/02/19 05:03 Ferritin 607.0 ng/mL (13.0-400.0) H 04/02/19 05:03 Total Bilirubin 0.30 mg/dL (0.1-1.2) 05/08/19 07:27 Direct Bilirubin 0.4 mg/dL (0-0.2) H 03/31/19 08:20 Indirect Bilirubin 0.1 mg/dL 03/31/19 08:20 AST 13 units/L (5-40) 05/08/19 07:27 ALT 16 units/L (7-56) 05/08/19 07:27 Alkaline Phosphatase 71 units/L (35-129) 05/08/19 07:27 Total Creatine Kinase 62 units/L (55-170) 04/07/19 05:40 CK-MB (CK-2) 54.3 ng/mL (0.0-4.0) H 03/17/19 07:16 CK-MB (CK-2) Rel Index 0.0 (0-4) 03/17/19 07:16 Troponin T 0.058 ng/mL (0.00-0.029) H 03/17/19 07:16 C-Reactive Protein 7.10 mg/dL (0.00-1.30) H 04/17/19 04:15 Serum Total Protein 5.7 g/dL (6.1-8.1) L 05/01/19 06:52 Total Protein 7.3 g/dL (6.3-8.2) 05/08/19 07:27 Albumin 3.4 g/dL (3.9-5) L 05/08/19 07:27 Albumin/Globulin Ratio 0.9 % 05/08/19 07:27 Qnbbb-1-Xmemetrod 0.5 g/dL (0.2-0.3) H 05/01/19 06:52 Tuzqr-2-Spqyfpqpq 0.9 g/dL (0.5-0.9) 05/01/19 06:52 Beta Globulins 0.4 g/dL (0.2-0.5) 05/01/19 06:52 Gamma Globulins 1.0 g/dL (0.8-1.7) 05/01/19 06:52 Abnorm Protein Band 1 see below 05/01/19 06:52 PEP Interpretation see below H 05/01/19 06:52 Triglycerides 309 mg/dL (2-149) H 03/29/19 06:22 Cholesterol 88 mg/dL (50-199) 03/16/19 22:32 LDL Cholesterol Direct 10 mg/dL (50-130) L 03/16/19 22:32 HDL Cholesterol 7 mg/dL (40-59) L 03/16/19 22:32 Cholesterol/HDL Ratio 12.57 % 03/16/19 22:32 Vitamin B12 903.0 pg/mL (211-911) 04/02/19 05:03 25-Hydroxy Vitamin D2 <4 ng/mL 04/29/19 14:14 1,25 Dihydroxy Vit D2 <8 pg/mL 04/29/19 14:14 25-Hydroxy Vitamin D3 11 ng/mL 04/29/19 14:14 1,25 Dihydroxy Vit D3 <8 pg/mL 04/29/19 14:14 Folate 8.05 ng/mL (7.3-26.0) 04/02/19 05:03 Procalcitonin 25.42 ng/mL (<0.15) 03/27/19 19:21 TSH 2.200 mlU/mL (0.270-4.200) 03/16/19 17:05 Free T4 0.72 ng/dL (0.76-1.46) L 03/16/19 17:05 PTH Intact 8.83 pg/mL (15-65) L 04/29/19 14:14 Urine Color Yellow (Yellow) 04/15/19 22:11 Urine Turbidity Clear (Clear) 04/15/19 22:11 Urine pH 6.0 (5.0-7.0) 04/15/19 22:11 Ur Specific [place] 1.010 (1.003-1.030) 04/15/19 22:11 Urine Protein 30 mg/dl mg/dL (Negative) 04/15/19 22:11 Urine Glucose (UA) Neg mg/dL (Negative) 04/15/19 22:11 Urine Ketones Neg mg/dL (Negative) 04/15/19 22:11 Urine Blood Mod (Negative) 04/15/19 22:11 Urine Nitrite Neg (Negative) 04/15/19 22:11 Urine Bilirubin Neg (Negative) 04/15/19 22:11 Urine Urobilinogen < 2.0 mg/dL (<2.0) 04/15/19 22:11 Ur Leukocyte Esterase Neg (Negative) 04/15/19 22:11 Urine WBC (Auto) 4.0 /HPF (0.0-6.0) 04/15/19 22:11 Urine RBC (Auto) 2.0 /HPF (0.0-6.0) 04/15/19 22:11 U Epithel Cells (Auto) < 1.0 /HPF (0-13.0) 04/15/19 22:11 Amorphous Crystals 1+ 04/05/19 16:50 Urine Mucus Few /HPF 03/17/19 16:05 Urine Sperm 2+ /HPF (POT ROOM TAPPER) 03/17/19 16:05 Urine Eosinophils None seen (None Seen) 03/17/19 16:05 Urine Creatinine 106.6 mg/dL (0.1-20.0) H 03/17/19 16:05 Urine Sodium 95 mmol/L 03/17/19 16:05 Vancomycin Trough 11.5 ug/mL (5.0-20.0) 03/18/19 13:19 Random Vancomycin 10.8 ug/mL (0-40.0) 04/14/19 03:55 Salicylates < 0.3 mg/dL (2.8-20.0) L 03/16/19 17:05 Urine Opiates Screen Presumptive negative 03/17/19 16:05 Urine Methadone Screen Presumptive negative 03/17/19 16:05 Acetaminophen < 5.0 ug/mL (10.0-30.0) L 03/16/19 17:05 Ur Barbiturates Screen Presumptive negative 03/17/19 16:05 Ur Phencyclidine Scrn Presumptive negative 03/17/19 16:05 Ur Amphetamines Screen Presumptive negative 03/17/19 16:05 U Benzodiazepines Scrn Presumptive positive 03/17/19 16:05 Urine Cocaine Screen Presumptive negative 03/17/19 16:05 U Marijuana (THC) Screen Presumptive negative 03/17/19 16:05 Drugs of Abuse Note Disclamer 03/17/19 16:05 Plasma/Serum Alcohol < 0.01 % (0-0.07) 03/16/19 17:05 Immunofix Electrophor see below 05/01/19 06:52 LANDY Screen Negative (Negative) 04/17/19 04:15 Proteinase 3 (PR3) Ab <1.0 AI (<1.0) 04/21/19 04:22 Myeloperoxidase Ab <1.0 AI (<1.0) 04/21/19 04:22 Glomerular Base Mem IgG See scanned result 04/21/19 04:22 Complement C3 150 mg/dL (82-185) 04/17/19 04:15 Complement C4 37 mg/dL (15-53) 04/17/19 04:15 Hepatitis A IgM Ab Non-reactive (NonReactive) 04/18/19 10:02 Hep Bs Antigen Non-reactive (Negative) 04/18/19 10:02 Hep B Core IgM Ab Non-reactive (NonReactive) 04/18/19 10:02 Hepatitis C Antibody Non-reactive (NonReactive) 04/18/19 10:02 HIV 1&2 Antibody Rapid Non react (Non React) 03/17/19 11:52 HIV P24 Antigen Non react (Non React) 03/17/19 11:52 Influenza A (Rapid) Negative (Negative) 03/17/19 17:00 Influenza B (Rapid) Negative (Negative) 03/17/19 17:00 Group A Strep Rapid Negative (Negative) 03/17/19 17:00 Miscellaneous Test Flexitest 1 03/21/19 12:00 Blood Type A POSITIVE 04/02/19 16:34 Antibody Screen Negative 04/02/19 16:34 Crossmatch See Detail 04/02/19 16:34 Active Medications - Current Medications Current Medications: Generic Name Dose Route Start Last Admin Trade Name Freq PRN Reason Stop Dose Admin Acetaminophen 650 mg 04/02/19 23:26 04/30/19 11:16 Tylenol PO 650 mg Q4H PRN Administration Pain, Mild (1-3),temp>100.5 Acetaminophen/Hydrocodone Bitart 1 each 05/02/19 11:50 05/07/19 20:51 [place] 5/325 PO 1 each Q6H PRN Administration Pain, Moderate (4-6) Al Hydrox/Mg Hydrox/Simethicone 15 ml 04/30/19 15:15 04/30/19 15:53 Alum-Mag Hydrox-Simeth 695-875-65rq/5ml PO 15 ml Q4H PRN Administration Indigestion Albuterol 2.5 mg 03/29/19 13:08 Proventil IH Q4HRT PRN Shortness Of Breath Lipase/Protease/Amylase 1 each 04/20/19 13:17 Pancreazapril [place] 10,500 Unit FEEDTUBE PRN PRN For Clogged Feeding Tube Bacitracin 1 applic 04/17/19 08:00 Antibiotic Oint TP Q4H PRN upper lip sore/open Dextrose 50 gm 04/17/19 08:00 D50w (25gm) Vial IV Q1H PRN Hypoglycemia Hydralazine HCl 20 mg 04/14/19 03:00 04/14/19 03:11 Apresoline IV 20 mg Q4H PRN Administration hypertemsion Hydrophilic Ointment 1 applic 03/16/19 15:50 04/19/19 18:24 Vaseline Lip Therapy TP 1 applic Q2HR PRN Administration Dry Lips Sodium Chloride 100 mls @ 999 mls/hr 04/20/19 08:41 Nacl 0.9% IV NEYMAR PRN Hypotension Sodium Chloride 1,000 mls @ 50 mls/hr 05/08/19 13:00 Nacl 0.9% 1000 Ml IV DIRECT PAOLO Melatonin 5 mg 04/26/19 21:00 05/07/19 20:51 Melatonin PO 5 mg QHS PRN Administration Sleep Metoprolol Tartrate 25 mg 04/17/19 20:00 05/08/19 08:00 Lopressor PO Not Given TID PAOLO Multi-Ingred Cream/Lotion/Oil/Oint 1 applic 03/16/19 15:50 03/19/19 20:10 Artificial Tears Ophth Oint OU 1 applic Q4HR PRN Administration Dry Eye(s) Pantoprazole Sodium 40 mg 05/07/19 22:00 05/08/19 10:55 Protonix PO Not Given BID PAOLO Simple Syrup 15 ml 04/20/19 13:17 Simple Syrup FEEDTUBE PRN PRN Hypoglycemia Simple Syrup 30 ml 04/20/19 13:29 05/01/19 17:57 Simple Syrup FEEDTUBE 30 ml PRN PRN Administration Hypoglycemia Sodium Bicarbonate 325 mg 04/20/19 13:17 04/27/19 11:03 Sodium Bicarbonate FEEDTUBE 325 mg PRN PRN Administration For Clogged Feeding Tube Nutrition/Malnutrition Assess - Dietary Evaluation Nutrition/Malnutrition Findings: Nutrition Notes Start: 03/17/19 14:22 Freq: Status: Active Protocol: Document 05/07/19 14:38 JOVANNI (Rec: 05/07/19 14:46 JOVANNI [email or web address]) Nutrition Notes Initial or Follow up Reassessment Current Diagnosis Acute Kidney Injury,Sepsis Other Pertinent Diagnosis GIB, on HD, afib Current Diet Regular + Ensure Clear daily Labs/Tests K 3.5 Ca 10.7 Pertinent Medications Reviewed Height 6 ft Weight 146.8 kg [place] Body Weight (kg) 80.90 BMI 43.9 Subjective/Other Information No meal intakes documented. Pt reports "pretty good" appetite. He is eating at least 50% of meals and drinks ONS. Burn Absent Trauma Absent #1 Nutrition Diagnosis Inadequate oral intake As Evidenced by Signs and Symptoms pt reports good appetite and is consuming at least 50% of meals Diagnosis Progress(for reassessment Improved documentation) Is patient on ventilator? No Is Patient Ambulatory and/or Out of Bed No REE-([facility]-confined to bed) 2871.756 Kcal/Kg value to use for calculation 14 Approximate Energy Requirements Using 5 kcal/Kg Calculation Used for Recommendations Kcal/kg Additional Notes Pro needs >1.2g/kg adjBW: > 137g/day Fluid needs 1ml/kcal Nutrition Intervention Change Diet Order: Continue current diet order Add Supplement/Snack (indicate name/kcal Ensure Clear once daily /protein ) Provides kCal: 240 Provides Protein (gm) 8 Goal #1 Meet at least 75% of kcal/PRO needs via PO and ONS intakes Follow-Up By: 05/14/19 Additional Comments F/U: stable intakes (meals/ONS ), wt
[2019-05-08] MEDS ORDERED: SODIUM CHLORIDE 0.9% 1000 ML 1,000 ML IV SCH (13:00)
[2019-05-08] MEDS ORDERED: PROPOFOL 200 MG/20 ML VIAL IV ONE (13:16)
[2019-05-08] MEDS ORDERED: SODIUM CHLORIDE 0.9% 1000 ML 1,000 ML ONE (13:44)
--- NOTE | 2019-05-08 13:49 | Anesthesia Day of Surgery ---
Anesthesia Day of Surgery - Day of Surgery Patient Examined: Yes Patient H&P Reviewed: Yes Patient is NPO: Yes Beta Blockers: Yes Cardiac Clearance: Yes Pulmonary Clearance: No (Under consult care of pulmonary service)
--- NOTE | 2019-05-08 13:53 | Anesthesia Consultation ---
Anesthesia Consult and Med Hx Date of service: 05/08/19 - Airway Anesthetic Teeth Evaluation: Good ROM Head & Neck: Adequate Mental/Hyoid Distance: Adequate Mallampati Class: Class III Intubation Access Assessment: Possibly Difficult - Pulmonary Exam CTA: Yes - Cardiac Exam Cardiac Exam: RRR - Pre-Operative Health Status ASA Pre-Surgery Classification: ASA3 Proposed Anesthetic Plan: MAC - Pulmonary Hx Asthma: No Hx Respiratory Symptoms: Yes (rare supplemental O2) COPD: No Hx Pneumonia: Yes (this admission; resolved) - Cardiovascular System Hx Hypertension: No Hx Heart Attack/AMI: No Hx Angina: No Hx Cardia Arrhythmia: Yes (cardiac arrest this admission) Hx Pacemaker: No Hx Internal Defibrillator: No - Central Nervous System Hx Neuromuscular Disorder: Yes (rhabdomyolysis this admission; resolved) CVA: No Hx Psychiatric Problems: Yes (altered mental status on admission; resolved) - Endocrine Hx Renal Disease: Yes (ARF; renal function improved) Hx Liver Disease: Yes (shock liver; resolved) Hx Insulin Dependent Diabetes: No Hx Non-Insulin Dependent Diabetes: No Hx Thyroid Disease: No - Hematic Hx Anemia: Yes - Other Systems Hx Obesity: Yes (BMI 43)
--- NOTE | 2019-05-08 14:40 | Operative Report ---
Operative Report Operative Report: DOS: 05/08/2019 Endoscopist: Keith Rojas MD EGD with biopsy REPORT PREOPERATIVE DIAGNOSIS and POSTOPERATIVE DIAGNOSIS: GI bleed ESTIMATED BLOOD LOSS: minimal DESCRIPTION OF PROCEDURE: A high-resolution EGD scope was passed through the oropharynx, esophagus, stomach, and second portion of duodenum. The scope was carefully withdrawn. Retroflexion was performed in the stomach. At the end of the procedure, the scope was cleaned using normal technique. Vital signs monitored continuously throughout. SEDATION: Provided by Anesthesiology Services. COMPLICATIONS: None. FINDINGS: Normal duodenum exam without any bleeding noted. The antrum revealed erythematous mucosa without any erosions or ulcers. Biopsies were obtained from the antrum and the body. The gastric body showed a healing ulcer about 4-5 mm in size with clean based and no high risk bleeding stigmata. Biopsies were obtained. The retroflexion in the stomach showed normal cardiac and fundus. The esophagus showed irregular z-line but otherwise normal findings. The rest of the esophagus was normal. RECOMMENDATIONS: 1. Continue with PPI oral. 2. Monitor H/H. 3. Per GI standpoint, ok to proceed with necessary cardiac work up and no high risk findings noted on exam for GI bleeding. 4. Will sign off. Family updated on the phone.
--- NOTE | 2019-05-08 15:15 | Event Note ---
Date: 05/08/19 S/p EGD today. GI recs noted. Will plan for [facility] on , 05/10/2019. Jose PRATT NP / DR. HAYDEN
--- NOTE | 2019-05-08 15:24 | Post Anesthesia Evaluation ---
- Post Anesthesia Evaluation Patient Participated: Yes Airway Patent: Yes Stable Respiratory Function: Yes Nausea/Vomiting: No Temp > 96.8F: Yes Pain Manageable: Yes Adequeate Hydration: Yes Anesthesia Complications: No
[2019-05-08] MEDS: HYDROcodone/ACETAMINOPHEN 5-325 MG TAB PO PRN ×2 (16:34→22:28)
--- NOTE | 2019-05-08 18:25 | Progress Note ---
Assessment and Plan Patient awake and more oriented. patient counselled on using O2. O2 saturation is 95% on room air. No acute respiratory distress. Patient afebrile and has leukocytosis. Patients heart rate and blood pressure running good. Patients calcium still high, 10.7. Patient receiving normal saline. . - Patient Problems (1) Acute respiratory failure Current Visit: Yes Status: Resolved Qualifiers: Respiratory failure complication: hypoxia Qualified Code(s): J96.01 - Acute respiratory failure with hypoxia Plan to address problem: O2 2L as needed for shortness of breath or desaturation. Albuterol/atrovent aerosol treatments q 6 hours. Continue Prevacid. Recommend DVT prophylaxis. SCDs (2) Altered mental status Current Visit: Yes Status: Acute Qualifiers: Altered mental status type: unspecified Qualified Code(s): R41.82 - Altered mental status, unspecified Plan to address problem: Management as per primary care and neurology. (3) Atrial fibrillation with RVR Current Visit: Yes Status: Acute Plan to address problem: Management as per cardiology. (4) Cardiopulmonary arrest Current Visit: Yes Status: Acute Plan to address problem: Patient resuscitated. Presently resting on room air. O2 saturation 95%.. (5) Acute renal failure Current Visit: Yes Status: Acute Qualifiers: Acute renal failure type: with acute tubular necrosis Qualified Code(s): N17.0 - Acute kidney failure with tubular necrosis Plan to address problem: Management as per nephrology. (6) Aspiration pneumonia Current Visit: Yes Status: Acute Qualifiers: Aspiration pneumonia type: unspecified Plan to address problem: Patient treated with Azactam and zyvox. (7) GI bleed Current Visit: Yes Status: Acute Plan to address problem: Management as per gastroenterology. Subjective Date of service: 05/08/19 Principal diagnosis: Anemia - DVT rt IJ, GI bleeding Interval history: Patient awake and more oriented. patient counselled on using O2. O2 saturation is 95% on room air. No acute respiratory distress. Patient afebrile and has leukocytosis. Patients heart rate and blood pressure running good. Patients calcium still high, 10.7. Patient receiving normal saline. Objective Vital Signs - 12hr 05/08/19 05/08/19 05/08/19 10:00 11:32 13:58 Temperature 98.6 F 98.3 F Pulse Rate 83 81 Pulse Rate [ 78 From Monitor] Respiratory 19 13 Rate Blood Pressure 143/98 128/89 O2 Sat by Pulse 97 99 Oximetry 05/08/19 05/08/19 05/08/19 14:38 14:50 15:01 Temperature 97.6 F Pulse Rate 81 76 80 Pulse Rate [ From Monitor] Respiratory 16 14 12 Rate Blood Pressure 93/61 125/77 132/86 O2 Sat by Pulse 98 100 99 Oximetry 05/08/19 17:02 Temperature 98.4 F Pulse Rate 85 Pulse Rate [ From Monitor] Respiratory 20 Rate Blood Pressure 160/92 O2 Sat by Pulse 98 Oximetry Constitutional: no acute distress, alert, other (middle aged morbidly obese CM, normocephalic with mildly incresed respiratory effort at rest) Eyes: non-icteric ENT: oropharynx moist, other (extubated) Neck: supple, no lymphadenopathy, no JVD, other (large neck circumference) Effort: mildly labored Ascultation: Bilateral: diminished breath sounds, rales, rhonchi (scant) Percussion: Bilateral: not dull Cardiovascular: regular rate and rhythm, other ( S1,S2) Gastrointestinal: normoactive bowel sounds, soft, non-tender, non-distended, other (obese) Integumentary: normal Extremities: no cyanosis, pink and warm, pulses normal, no ischemia or petechiae Neurologic: normal mental status, non-focal exam (grossly), pupils equal and round, CN II-XII normal, other (very weak) Psychiatric: mood appropriate, affect normal CBC and BMP: 05/08/19 07:27 05/08/19 07:27 ABG, PT/INR, D-dimer: ABG POC ABG pH 7.401 (7.35-7.45) 04/07/19 12:57 ABG pH 7.388 pH Units (7.350-7.450) 04/06/19 05:20 POC ABG pCO2 41.5 (35-45) 04/07/19 12:57 ABG pCO2 38.5 mm Hg 04/06/19 05:20 POC ABG pO2 107 (80-105) H 04/07/19 12:57 ABG pO2 104.0 mm Hg (80.0-90.0) H 04/06/19 05:20 POC ABG HCO3 25.7 (22-26 mml/L) 04/07/19 12:57 POC ABG Total CO2 27 (23-27mmol/L) 04/07/19 12:57 POC ABG O2 Sat 98 04/07/19 12:57 ABG O2 Saturation 97.8 % (95.0-99.0) 04/06/19 05:20 PT/INR, D-dimer PT 14.2 Sec. (12.2-14.9) 05/07/19 05:55 INR 1.11 (0.87-1.13) 05/07/19 05:55 D-Dimer 4845.98 ng/mlDDU (0-234) H 03/28/19 12:00 Abnormal lab findings: Abnormal Labs 03/16/19 03/16/19 03/16/19 15:32 16:03 16:05 WBC 27.0 H RBC 5.55 H Hgb 15.7 H Hct 47.1 H MCV MCH MCHC RDW Plt Count 75 L Lymph % (Auto) [place] % (Auto) Eos % (Auto) Lymph # [place] # Eos # Seg Neutrophils % Seg Neuts % (Manual) 85.0 H Lymphocytes % (Manual) 2.0 L Monocytes % (Manual) Nucleated RBC % Seg Neutrophils # Seg Neutrophils # Man 23.0 H Lymphocytes # (Manual) 0.5 L Monocytes # (Manual) PT INR D-Dimer Heparin Anti-Xa Level POC ABG pH ABG pH POC ABG pCO2 POC ABG pO2 ABG pO2 ABG HCO3 ABG O2 Saturation ABG Base Excess ABG Hemoglobin Oxyhemoglobin Sodium 127 L Potassium Chloride 87.8 L Carbon Dioxide 17 L BUN 49 H Creatinine 5.8 H Glucose 150 H POC Glucose 118 H Lactic Acid Calcium 6.6 L Ionized Calcium Phosphorus Magnesium 1.10 L Iron TIBC Ferritin Total Bilirubin Direct Bilirubin AST ALT Alkaline Phosphatase Total Creatine Kinase 05724 H CK-MB (CK-2) Troponin T C-Reactive Protein Serum Total Protein Total Protein Albumin Vxtbu-9-Yrtcutfjw Txzpx-1-Ezwsogvbg PEP Interpretation Triglycerides LDL Cholesterol Direct HDL Cholesterol Free T4 PTH Intact Urine WBC (Auto) Urine Creatinine Salicylates Acetaminophen Crossmatch 03/16/19 03/16/19 03/16/19 16:59 17:05 17:05 WBC RBC Hgb Hct MCV MCH MCHC RDW Plt Count Lymph % (Auto) [place] % (Auto) Eos % (Auto) Lymph # [place] # Eos # Seg Neutrophils % Seg Neuts % (Manual) Lymphocytes % (Manual) Monocytes % (Manual) Nucleated RBC % Seg Neutrophils # Seg Neutrophils # Man Lymphocytes # (Manual) Monocytes # (Manual) PT INR D-Dimer Heparin Anti-Xa Level POC ABG pH 7.297 L ABG pH POC ABG pCO2 33.0 L POC ABG pO2 ABG pO2 ABG HCO3 ABG O2 Saturation ABG Base Excess ABG Hemoglobin Oxyhemoglobin Sodium Potassium Chloride Carbon Dioxide BUN Creatinine Glucose POC Glucose Lactic Acid Calcium Ionized Calcium Phosphorus Magnesium Iron TIBC Ferritin Total Bilirubin Direct Bilirubin AST ALT Alkaline Phosphatase Total Creatine Kinase 93534 H CK-MB (CK-2) 83.1 H Troponin T C-Reactive Protein Serum Total Protein Total Protein Albumin Ozygg-2-Prtrcfplc Iinky-0-Erktkhwpe PEP Interpretation Triglycerides LDL Cholesterol Direct HDL Cholesterol Free T4 0.72 L PTH Intact Urine WBC (Auto) Urine Creatinine Salicylates Acetaminophen Crossmatch 03/16/19 03/16/19 03/16/19 17:05 17:05 17:05 WBC RBC Hgb Hct MCV MCH MCHC RDW Plt Count Lymph % (Auto) [place] % (Auto) Eos % (Auto) Lymph # [place] # Eos # Seg Neutrophils % Seg Neuts % (Manual) Lymphocytes % (Manual) Monocytes % (Manual) Nucleated RBC % Seg Neutrophils # Seg Neutrophils # Man Lymphocytes # (Manual) Monocytes # (Manual) PT INR D-Dimer Heparin Anti-Xa Level POC ABG pH ABG pH POC ABG pCO2 POC ABG pO2 ABG pO2 ABG HCO3 ABG O2 Saturation ABG Base Excess ABG Hemoglobin Oxyhemoglobin Sodium Potassium Chloride Carbon Dioxide BUN Creatinine Glucose POC Glucose Lactic Acid 5.10 H* Calcium Ionized Calcium Phosphorus Magnesium Iron TIBC Ferritin Total Bilirubin Direct Bilirubin AST ALT Alkaline Phosphatase Total Creatine Kinase CK-MB (CK-2) Troponin T C-Reactive Protein Serum Total Protein Total Protein Albumin Dbzfi-6-Nszwodcwl Xqkvo-3-Gdbgfcsvb PEP Interpretation Triglycerides LDL Cholesterol Direct HDL Cholesterol Free T4 PTH Intact Urine WBC (Auto) Urine Creatinine Salicylates < 0.3 L Acetaminophen < 5.0 L Crossmatch 03/16/19 03/16/19 03/16/19 17:05 17:05 20:35 WBC RBC Hgb Hct MCV MCH MCHC RDW Plt Count Lymph % (Auto) [place] % (Auto) Eos % (Auto) Lymph # [place] # Eos # Seg Neutrophils % Seg Neuts % (Manual) Lymphocytes % (Manual) Monocytes % (Manual) Nucleated RBC % Seg Neutrophils # Seg Neutrophils # Man Lymphocytes # (Manual) Monocytes # (Manual) PT 15.9 H INR 1.30 H D-Dimer Heparin Anti-Xa Level POC ABG pH ABG pH POC ABG pCO2 POC ABG pO2 ABG pO2 ABG HCO3 ABG O2 Saturation ABG Base Excess ABG Hemoglobin Oxyhemoglobin Sodium Potassium Chloride Carbon Dioxide BUN Creatinine Glucose POC Glucose Lactic Acid 3.30 H* Calcium Ionized Calcium Phosphorus Magnesium Iron TIBC Ferritin Total Bilirubin 6.20 H Direct Bilirubin 5.9 H AST 800 H ALT 120 H Alkaline Phosphatase Total Creatine Kinase CK-MB (CK-2) Troponin T C-Reactive Protein Serum Total Protein Total Protein 4.4 L Albumin 2.4 L Pvzrp-9-Nqxlhqyam Xhzbq-8-Wusgxadhr PEP Interpretation Triglycerides LDL Cholesterol Direct HDL Cholesterol Free T4 PTH Intact Urine WBC (Auto) Urine Creatinine Salicylates Acetaminophen Crossmatch 03/16/19 03/16/19 03/16/19 21:45 22:32 Unknown WBC RBC Hgb Hct MCV MCH MCHC RDW Plt Count Lymph % (Auto) [place] % (Auto) Eos % (Auto) Lymph # [place] # Eos # Seg Neutrophils % Seg Neuts % (Manual) Lymphocytes % (Manual) Monocytes % (Manual) Nucleated RBC % Seg Neutrophils # Seg Neutrophils # Man Lymphocytes # (Manual) Monocytes # (Manual) PT INR D-Dimer Heparin Anti-Xa Level POC ABG pH ABG pH POC ABG pCO2 POC ABG pO2 ABG pO2 ABG HCO3 ABG O2 Saturation ABG Base Excess ABG Hemoglobin Oxyhemoglobin Sodium Potassium Chloride Carbon Dioxide BUN Creatinine Glucose POC Glucose Lactic Acid 3.30 H* 3.00 H* Calcium Ionized Calcium Phosphorus Magnesium Iron TIBC Ferritin Total Bilirubin Direct Bilirubin AST ALT Alkaline Phosphatase Total Creatine Kinase CK-MB (CK-2) Troponin T 0.047 H D C-Reactive Protein Serum Total Protein Total Protein Albumin Macfb-2-Swwaunerh Uxobw-3-Ttwiizzwt PEP Interpretation Triglycerides 395 H LDL Cholesterol Direct 10 L HDL Cholesterol 7 L Free T4 PTH Intact Urine WBC (Auto) Urine Creatinine Salicylates Acetaminophen Crossmatch 03/17/19 03/17/19 03/17/19 03:45 03:45 03:45 WBC RBC Hgb Hct MCV MCH MCHC RDW Plt Count Lymph % (Auto) [place] % (Auto) Eos % (Auto) Lymph # [place] # Eos # Seg Neutrophils % Seg Neuts % (Manual) Lymphocytes % (Manual) Monocytes % (Manual) Nucleated RBC % Seg Neutrophils # Seg Neutrophils # Man Lymphocytes # (Manual) Monocytes # (Manual) PT INR D-Dimer Heparin Anti-Xa Level POC ABG pH ABG pH POC ABG pCO2 POC ABG pO2 ABG pO2 ABG HCO3 ABG O2 Saturation ABG Base Excess ABG Hemoglobin Oxyhemoglobin Sodium 131 L Potassium Chloride 88.9 L Carbon Dioxide BUN 53 H Creatinine 7.1 H Glucose POC Glucose Lactic Acid 4.10 H* Calcium 5.4 L* D Ionized Calcium Phosphorus 7.30 H Magnesium 1.60 L Iron TIBC Ferritin Total Bilirubin 5.90 H Direct Bilirubin AST 801 H ALT 109 H Alkaline Phosphatase Total Creatine Kinase 34550 H 92744 H CK-MB (CK-2) 41.5 H Troponin T 0.054 H C-Reactive Protein Serum Total Protein Total Protein 4.5 L Albumin 2.0 L Athgv-9-Inamhhdnl Wxgxq-8-Wznvmsqef PEP Interpretation Triglycerides LDL Cholesterol Direct HDL Cholesterol Free T4 PTH Intact Urine WBC (Auto) Urine Creatinine Salicylates Acetaminophen Crossmatch 03/17/19 03/17/19 03/17/19 05:47 07:16 07:16 WBC RBC Hgb Hct MCV MCH MCHC RDW Plt Count Lymph % (Auto) [place] % (Auto) Eos % (Auto) Lymph # [place] # Eos # Seg Neutrophils % Seg Neuts % (Manual) Lymphocytes % (Manual) Monocytes % (Manual) Nucleated RBC % Seg Neutrophils # Seg Neutrophils # Man Lymphocytes # (Manual) Monocytes # (Manual) PT INR D-Dimer Heparin Anti-Xa Level POC ABG pH 7.193 L ABG pH POC ABG pCO2 45.2 H POC ABG pO2 65 L ABG pO2 ABG HCO3 ABG O2 Saturation ABG Base Excess ABG Hemoglobin Oxyhemoglobin Sodium Potassium Chloride Carbon Dioxide BUN Creatinine Glucose POC Glucose Lactic Acid 5.50 H* Calcium Ionized Calcium Phosphorus Magnesium Iron TIBC Ferritin Total Bilirubin Direct Bilirubin AST ALT Alkaline Phosphatase Total Creatine Kinase 46185 H CK-MB (CK-2) 54.3 H Troponin T 0.058 H C-Reactive Protein Serum Total Protein Total Protein Albumin Xwjxk-0-Gfopwptrw Duicz-5-Drduseyir PEP Interpretation Triglycerides LDL Cholesterol Direct HDL Cholesterol Free T4 PTH Intact Urine WBC (Auto) Urine Creatinine Salicylates Acetaminophen Crossmatch 03/17/19 03/17/19 03/17/19 11:52 12:51 13:01 WBC RBC Hgb Hct MCV MCH MCHC RDW Plt Count Lymph % (Auto) [place] % (Auto) Eos % (Auto) Lymph # [place] # Eos # Seg Neutrophils % Seg Neuts % (Manual) Lymphocytes % (Manual) Monocytes % (Manual) Nucleated RBC % Seg Neutrophils # Seg Neutrophils # Man Lymphocytes # (Manual) Monocytes # (Manual) PT INR D-Dimer Heparin Anti-Xa Level POC ABG pH 7.154 L ABG pH POC ABG pCO2 34.3 L POC ABG pO2 73 L ABG pO2 ABG HCO3 ABG O2 Saturation ABG Base Excess ABG Hemoglobin Oxyhemoglobin Sodium Potassium Chloride Carbon Dioxide BUN Creatinine Glucose POC Glucose 60 L Lactic Acid 8.20 H* Calcium Ionized Calcium Phosphorus Magnesium Iron TIBC Ferritin Total Bilirubin Direct Bilirubin AST ALT Alkaline Phosphatase Total Creatine Kinase CK-MB (CK-2) Troponin T C-Reactive Protein Serum Total Protein Total Protein Albumin Tzmio-5-Fgvtfnucf Zbmby-8-Veqgfqhwl PEP Interpretation Triglycerides LDL Cholesterol Direct HDL Cholesterol Free T4 PTH Intact Urine WBC (Auto) Urine Creatinine Salicylates Acetaminophen Crossmatch 03/17/19 03/17/19 03/17/19 14:37 14:37 14:37 WBC 29.3 H RBC Hgb Hct MCV MCH MCHC RDW 15.8 H Plt Count 45 L Lymph % (Auto) [place] % (Auto) Eos % (Auto) Lymph # [place] # Eos # Seg Neutrophils % Seg Neuts % (Manual) 81.0 H Lymphocytes % (Manual) 1.0 L Monocytes % (Manual) 15.0 H Nucleated RBC % Seg Neutrophils # Seg Neutrophils # Man 23.7 H Lymphocytes # (Manual) 0.3 L Monocytes # (Manual) 4.4 H PT INR D-Dimer Heparin Anti-Xa Level POC ABG pH ABG pH POC ABG pCO2 POC ABG pO2 ABG pO2 ABG HCO3 ABG O2 Saturation ABG Base Excess ABG Hemoglobin Oxyhemoglobin Sodium Potassium Chloride Carbon Dioxide BUN Creatinine Glucose POC Glucose Lactic Acid 4.90 H* Calcium Ionized Calcium Phosphorus Magnesium Iron TIBC Ferritin Total Bilirubin Direct Bilirubin AST ALT Alkaline Phosphatase Total Creatine Kinase CK-MB (CK-2) Troponin T C-Reactive Protein 24.90 H Serum Total Protein Total Protein Albumin Zasqs-5-Fkdpadqov Lqeil-1-Crxlsowjt PEP Interpretation Triglycerides LDL Cholesterol Direct HDL Cholesterol Free T4 PTH Intact Urine WBC (Auto) Urine Creatinine Salicylates Acetaminophen Crossmatch 03/17/19 03/17/19 03/17/19 16:05 16:05 17:02 WBC RBC Hgb Hct MCV MCH MCHC RDW Plt Count Lymph % (Auto) [place] % (Auto) Eos % (Auto) Lymph # [place] # Eos # Seg Neutrophils % Seg Neuts % (Manual) Lymphocytes % (Manual) Monocytes % (Manual) Nucleated RBC % Seg Neutrophils # Seg Neutrophils # Man Lymphocytes # (Manual) Monocytes # (Manual) PT INR D-Dimer Heparin Anti-Xa Level POC ABG pH 7.183 L ABG pH POC ABG pCO2 POC ABG pO2 65 L ABG pO2 ABG HCO3 ABG O2 Saturation ABG Base Excess ABG Hemoglobin Oxyhemoglobin Sodium Potassium Chloride Carbon Dioxide BUN Creatinine Glucose POC Glucose Lactic Acid Calcium Ionized Calcium Phosphorus Magnesium Iron TIBC Ferritin Total Bilirubin Direct Bilirubin AST ALT Alkaline Phosphatase Total Creatine Kinase CK-MB (CK-2) Troponin T C-Reactive Protein Serum Total Protein Total Protein Albumin Xrebo-5-Kutftjgnv Mlsqi-6-Hkdhdnwyz PEP Interpretation Triglycerides LDL Cholesterol Direct HDL Cholesterol Free T4 PTH Intact Urine WBC (Auto) 30.0 H Urine Creatinine 106.6 H Salicylates Acetaminophen Crossmatch 03/18/19 03/18/19 03/18/19 05:12 05:16 05:53 WBC RBC Hgb Hct MCV MCH MCHC RDW Plt Count Lymph % (Auto) [place] % (Auto) Eos % (Auto) Lymph # [place] # Eos # Seg Neutrophils % Seg Neuts % (Manual) Lymphocytes % (Manual) Monocytes % (Manual) Nucleated RBC % Seg Neutrophils # Seg Neutrophils # Man Lymphocytes # (Manual) Monocytes # (Manual) PT INR D-Dimer Heparin Anti-Xa Level POC ABG pH 7.257 L ABG pH POC ABG pCO2 31.6 L POC ABG pO2 69 L ABG pO2 ABG HCO3 ABG O2 Saturation ABG Base Excess ABG Hemoglobin Oxyhemoglobin Sodium Potassium Chloride Carbon Dioxide BUN Creatinine Glucose POC Glucose 141 H Lactic Acid 5.00 H* Calcium Ionized Calcium Phosphorus Magnesium Iron TIBC Ferritin Total Bilirubin Direct Bilirubin AST ALT Alkaline Phosphatase Total Creatine Kinase CK-MB (CK-2) Troponin T C-Reactive Protein Serum Total Protein Total Protein Albumin Mzlzv-3-Gscwimrkv Dntbd-8-Oablumdzx PEP Interpretation Triglycerides LDL Cholesterol Direct HDL Cholesterol Free T4 PTH Intact Urine WBC (Auto) Urine Creatinine Salicylates Acetaminophen Crossmatch 03/18/19 03/18/19 03/18/19 06:57 08:40 08:40 WBC 31.7 H RBC Hgb Hct MCV MCH MCHC RDW 15.5 H Plt Count 35 L Lymph % (Auto) [place] % (Auto) Eos % (Auto) Lymph # [place] # Eos # Seg Neutrophils % Seg Neuts % (Manual) Lymphocytes % (Manual) Monocytes % (Manual) Nucleated RBC % Seg Neutrophils # Seg Neutrophils # Man Lymphocytes # (Manual) Monocytes # (Manual) PT INR D-Dimer Heparin Anti-Xa Level POC ABG pH ABG pH POC ABG pCO2 POC ABG pO2 ABG pO2 ABG HCO3 ABG O2 Saturation ABG Base Excess ABG Hemoglobin Oxyhemoglobin Sodium 132 L Potassium 5.5 H D Chloride 88.5 L Carbon Dioxide 18 L BUN 71 H Creatinine 8.1 H Glucose 205 H POC Glucose Lactic Acid 5.00 H* Calcium 4.1 L* D Ionized Calcium Phosphorus Magnesium 2.40 H Iron TIBC Ferritin Total Bilirubin 7.50 H Direct Bilirubin AST 1088 H ALT 159 H Alkaline Phosphatase 190 H Total Creatine Kinase 183086 H CK-MB (CK-2) Troponin T C-Reactive Protein Serum Total Protein Total Protein 4.7 L Albumin 1.8 L Oensj-2-Kieqfrqzm Iwumh-9-Gcatgoqyj PEP Interpretation Triglycerides LDL Cholesterol Direct HDL Cholesterol Free T4 PTH Intact Urine WBC (Auto) Urine Creatinine Salicylates Acetaminophen Crossmatch 03/18/19 03/18/19 03/18/19 12:33 12:50 13:19 WBC RBC Hgb Hct MCV MCH MCHC RDW Plt Count Lymph % (Auto) [place] % (Auto) Eos % (Auto) Lymph # [place] # Eos # Seg Neutrophils % Seg Neuts % (Manual) Lymphocytes % (Manual) Monocytes % (Manual) Nucleated RBC % Seg Neutrophils # Seg Neutrophils # Man Lymphocytes # (Manual) Monocytes # (Manual) PT INR D-Dimer Heparin Anti-Xa Level POC ABG pH 7.282 L ABG pH POC ABG pCO2 POC ABG pO2 67 L ABG pO2 ABG HCO3 ABG O2 Saturation ABG Base Excess ABG Hemoglobin Oxyhemoglobin Sodium Potassium Chloride Carbon Dioxide BUN Creatinine Glucose POC Glucose 129 H Lactic Acid 3.30 H* Calcium Ionized Calcium Phosphorus Magnesium Iron TIBC Ferritin Total Bilirubin Direct Bilirubin AST ALT Alkaline Phosphatase Total Creatine Kinase CK-MB (CK-2) Troponin T C-Reactive Protein Serum Total Protein Total Protein Albumin [place]-6-Amdlopeub Rlilf-0-Kneqbbtts PEP Interpretation Triglycerides LDL Cholesterol Direct HDL Cholesterol Free T4 PTH Intact Urine WBC (Auto) Urine Creatinine Salicylates Acetaminophen Crossmatch 03/18/19 03/18/19 03/18/19 13:19 16:50 18:11 WBC RBC Hgb Hct MCV MCH MCHC RDW Plt Count Lymph % (Auto) [place] % (Auto) Eos % (Auto) Lymph # [place] # Eos # Seg Neutrophils % Seg Neuts % (Manual) Lymphocytes % (Manual) Monocytes % (Manual) Nucleated RBC % Seg Neutrophils # Seg Neutrophils # Man Lymphocytes # (Manual) Monocytes # (Manual) PT INR D-Dimer Heparin Anti-Xa Level POC ABG pH ABG pH POC ABG pCO2 POC ABG pO2 59 L ABG pO2 ABG HCO3 ABG O2 Saturation ABG Base Excess ABG Hemoglobin Oxyhemoglobin Sodium Potassium Chloride Carbon Dioxide BUN Creatinine Glucose POC Glucose 151 H Lactic Acid Calcium 4.2 L* Ionized Calcium Phosphorus Magnesium Iron TIBC Ferritin Total Bilirubin Direct Bilirubin AST ALT Alkaline Phosphatase Total Creatine Kinase 705769 H CK-MB (CK-2) Troponin T C-Reactive Protein Serum Total Protein Total Protein Albumin Ogigz-3-Awxbxovsk Oavwk-0-Knafkoicf PEP Interpretation Triglycerides LDL Cholesterol Direct HDL Cholesterol Free T4 PTH Intact Urine WBC (Auto) Urine Creatinine Salicylates Acetaminophen Crossmatch 03/18/19 03/18/19 03/19/19 18:20 23:39 01:42 WBC RBC Hgb Hct MCV MCH MCHC RDW Plt Count Lymph % (Auto) [place] % (Auto) Eos % (Auto) Lymph # [place] # Eos # Seg Neutrophils % Seg Neuts % (Manual) Lymphocytes % (Manual) Monocytes % (Manual) Nucleated RBC % Seg Neutrophils # Seg Neutrophils # Man Lymphocytes # (Manual) Monocytes # (Manual) PT INR D-Dimer Heparin Anti-Xa Level POC ABG pH 7.345 L ABG pH 7.285 L POC ABG pCO2 POC ABG pO2 59 L ABG pO2 44.0 L ABG HCO3 ABG O2 Saturation 70.9 L ABG Base Excess -5.7 L ABG Hemoglobin 11.9 L Oxyhemoglobin 69.6 L Sodium Potassium Chloride Carbon Dioxide BUN Creatinine Glucose POC Glucose 152 H Lactic Acid Calcium Ionized Calcium Phosphorus Magnesium Iron TIBC Ferritin Total Bilirubin Direct Bilirubin AST ALT Alkaline Phosphatase Total Creatine Kinase CK-MB (CK-2) Troponin T C-Reactive Protein Serum Total Protein Total Protein Albumin Bsief-6-Tnnifgzrs Bkdes-7-Ubyemzqdf PEP Interpretation Triglycerides LDL Cholesterol Direct HDL Cholesterol Free T4 PTH Intact Urine WBC (Auto) Urine Creatinine Salicylates Acetaminophen Crossmatch 03/19/19 03/19/19 03/19/19 04:00 04:00 05:35 WBC 36.5 H RBC Hgb Hct MCV MCH MCHC RDW 15.8 H Plt Count 35 L Lymph % (Auto) [place] % (Auto) Eos % (Auto) Lymph # [place] # Eos # Seg Neutrophils % Seg Neuts % (Manual) Lymphocytes % (Manual) Monocytes % (Manual) Nucleated RBC % Seg Neutrophils # Seg Neutrophils # Man Lymphocytes # (Manual) Monocytes # (Manual) PT INR D-Dimer Heparin Anti-Xa Level POC ABG pH ABG pH 7.265 L POC ABG pCO2 POC ABG pO2 ABG pO2 35.4 L* ABG HCO3 ABG O2 Saturation 54.4 L ABG Base Excess -6.7 L ABG Hemoglobin 12.9 L Oxyhemoglobin 53.4 L Sodium 132 L Potassium 5.7 H Chloride 89.8 L Carbon Dioxide 19 L BUN 62 H Creatinine 6.4 H Glucose 151 H POC Glucose Lactic Acid Calcium 5.2 L* D Ionized Calcium Phosphorus Magnesium Iron TIBC Ferritin Total Bilirubin 7.80 H Direct Bilirubin AST 682 H ALT 130 H Alkaline Phosphatase 167 H Total Creatine Kinase CK-MB (CK-2) Troponin T C-Reactive Protein Serum Total Protein Total Protein 4.8 L Albumin 2.3 L Rxdyg-1-Mvfacroxs Bpjfe-4-Kaecfymcc PEP Interpretation Triglycerides LDL Cholesterol Direct HDL Cholesterol Free T4 PTH Intact Urine WBC (Auto) Urine Creatinine Salicylates Acetaminophen Crossmatch 03/19/19 03/19/19 03/19/19 05:49 09:16 09:50 WBC RBC Hgb Hct MCV MCH MCHC RDW Plt Count Lymph % (Auto) [place] % (Auto) Eos % (Auto) Lymph # [place] # Eos # Seg Neutrophils % Seg Neuts % (Manual) Lymphocytes % (Manual) Monocytes % (Manual) Nucleated RBC % Seg Neutrophils # Seg Neutrophils # Man Lymphocytes # (Manual) Monocytes # (Manual) PT INR D-Dimer Heparin Anti-Xa Level POC ABG pH 7.222 L ABG pH POC ABG pCO2 56.6 H POC ABG pO2 ABG pO2 ABG HCO3 ABG O2 Saturation ABG Base Excess ABG Hemoglobin Oxyhemoglobin Sodium Potassium Chloride Carbon Dioxide BUN Creatinine Glucose POC Glucose 154 H Lactic Acid 2.70 H* Calcium Ionized Calcium Phosphorus Magnesium Iron TIBC Ferritin Total Bilirubin Direct Bilirubin AST ALT Alkaline Phosphatase Total Creatine Kinase CK-MB (CK-2) Troponin T C-Reactive Protein Serum Total Protein Total Protein Albumin Zkmcr-5-Pcbkvbexh Dtwjv-4-Cdismombf PEP Interpretation Triglycerides LDL Cholesterol Direct HDL Cholesterol Free T4 PTH Intact Urine WBC (Auto) Urine Creatinine Salicylates Acetaminophen Crossmatch 03/19/19 03/19/19 03/19/19 09:50 11:28 17:58 WBC RBC Hgb Hct MCV MCH MCHC RDW Plt Count Lymph % (Auto) [place] % (Auto) Eos % (Auto) Lymph # [place] # Eos # Seg Neutrophils % Seg Neuts % (Manual) Lymphocytes % (Manual) Monocytes % (Manual) Nucleated RBC % Seg Neutrophils # Seg Neutrophils # Man Lymphocytes # (Manual) Monocytes # (Manual) PT INR D-Dimer Heparin Anti-Xa Level POC ABG pH 7.250 L ABG pH POC ABG pCO2 52.6 H POC ABG pO2 ABG pO2 ABG HCO3 ABG O2 Saturation ABG Base Excess ABG Hemoglobin Oxyhemoglobin Sodium Potassium Chloride Carbon Dioxide BUN Creatinine Glucose POC Glucose 160 H Lactic Acid Calcium Ionized Calcium Phosphorus Magnesium Iron TIBC Ferritin Total Bilirubin Direct Bilirubin AST ALT Alkaline Phosphatase Total Creatine Kinase 00827 H CK-MB (CK-2) Troponin T C-Reactive Protein Serum Total Protein Total Protein Albumin Ftdlo-4-Ounndmmse Gflkz-0-Uboqbyckz PEP Interpretation Triglycerides LDL Cholesterol Direct HDL Cholesterol Free T4 PTH Intact Urine WBC (Auto) Urine Creatinine Salicylates Acetaminophen Crossmatch 03/19/19 03/19/19 03/20/19 19:48 21:03 02:16 WBC RBC Hgb Hct MCV MCH MCHC RDW Plt Count Lymph % (Auto) [place] % (Auto) Eos % (Auto) Lymph # [place] # Eos # Seg Neutrophils % Seg Neuts % (Manual) Lymphocytes % (Manual) Monocytes % (Manual) Nucleated RBC % Seg Neutrophils # Seg Neutrophils # Man Lymphocytes # (Manual) Monocytes # (Manual) PT INR D-Dimer Heparin Anti-Xa Level POC ABG pH 7.279 L ABG pH POC ABG pCO2 50.3 H POC ABG pO2 129 H ABG pO2 ABG HCO3 ABG O2 Saturation ABG Base Excess ABG Hemoglobin Oxyhemoglobin Sodium Potassium Chloride Carbon Dioxide BUN Creatinine Glucose POC Glucose 119 H 119 H Lactic Acid Calcium Ionized Calcium Phosphorus Magnesium Iron TIBC Ferritin Total Bilirubin Direct Bilirubin AST ALT Alkaline Phosphatase Total Creatine Kinase CK-MB (CK-2) Troponin T C-Reactive Protein Serum Total Protein Total Protein Albumin Vbwmu-3-Dpeaoeiqq Hezya-6-Vfvzaojwq PEP Interpretation Triglycerides LDL Cholesterol Direct HDL Cholesterol Free T4 PTH Intact Urine WBC (Auto) Urine Creatinine Salicylates Acetaminophen Crossmatch 03/20/19 03/20/19 03/20/19 04:23 05:05 09:30 WBC 36.3 H RBC Hgb Hct MCV MCH MCHC RDW 15.5 H Plt Count 29 L Lymph % (Auto) [place] % (Auto) Eos % (Auto) Lymph # [place] # Eos # Seg Neutrophils % Seg Neuts % (Manual) Lymphocytes % (Manual) Monocytes % (Manual) Nucleated RBC % Seg Neutrophils # Seg Neutrophils # Man Lymphocytes # (Manual) Monocytes # (Manual) PT INR D-Dimer Heparin Anti-Xa Level POC ABG pH ABG pH POC ABG pCO2 POC ABG pO2 280 H ABG pO2 ABG HCO3 ABG O2 Saturation ABG Base Excess ABG Hemoglobin Oxyhemoglobin Sodium Potassium Chloride Carbon Dioxide BUN Creatinine Glucose POC Glucose 115 H Lactic Acid Calcium Ionized Calcium Phosphorus Magnesium Iron TIBC Ferritin Total Bilirubin Direct Bilirubin AST ALT Alkaline Phosphatase Total Creatine Kinase CK-MB (CK-2) Troponin T C-Reactive Protein Serum Total Protein Total Protein Albumin Sascm-3-Lythokvxg Nywpv-9-Beiwzaiua PEP Interpretation Triglycerides LDL Cholesterol Direct HDL Cholesterol Free T4 PTH Intact Urine WBC (Auto) Urine Creatinine Salicylates Acetaminophen Crossmatch 03/20/19 03/20/19 03/20/19 09:30 09:30 11:34 WBC RBC Hgb Hct MCV MCH MCHC RDW Plt Count Lymph % (Auto) [place] % (Auto) Eos % (Auto) Lymph # [place] # Eos # Seg Neutrophils % Seg Neuts % (Manual) Lymphocytes % (Manual) Monocytes % (Manual) Nucleated RBC % Seg Neutrophils # Seg Neutrophils # Man Lymphocytes # (Manual) Monocytes # (Manual) PT INR D-Dimer Heparin Anti-Xa Level POC ABG pH ABG pH POC ABG pCO2 POC ABG pO2 ABG pO2 ABG HCO3 ABG O2 Saturation ABG Base Excess ABG Hemoglobin Oxyhemoglobin Sodium 131 L Potassium Chloride 92.3 L Carbon Dioxide 20 L BUN 68 H Creatinine 6.1 H Glucose 164 H POC Glucose 141 H Lactic Acid Calcium 5.3 L* Ionized Calcium Phosphorus Magnesium Iron TIBC Ferritin Total Bilirubin 9.50 H Direct Bilirubin AST 381 H ALT 116 H Alkaline Phosphatase 255 H Total Creatine Kinase 00532 H CK-MB (CK-2) Troponin T C-Reactive Protein Serum Total Protein Total Protein 5.1 L Albumin 2.3 L Wtvtj-3-Pjqpesmfu Ayram-7-Lxsvimpfv PEP Interpretation Triglycerides LDL Cholesterol Direct HDL Cholesterol Free T4 PTH Intact Urine WBC (Auto) Urine Creatinine Salicylates Acetaminophen Crossmatch 03/20/19 03/20/19 03/20/19 14:41 14:45 18:50 WBC RBC Hgb Hct MCV MCH MCHC RDW Plt Count Lymph % (Auto) [place] % (Auto) Eos % (Auto) Lymph # [place] # Eos # Seg Neutrophils % Seg Neuts % (Manual) Lymphocytes % (Manual) Monocytes % (Manual) Nucleated RBC % Seg Neutrophils # Seg Neutrophils # Man Lymphocytes # (Manual) Monocytes # (Manual) PT INR D-Dimer Heparin Anti-Xa Level POC ABG pH ABG pH POC ABG pCO2 POC ABG pO2 ABG pO2 ABG HCO3 ABG O2 Saturation ABG Base Excess ABG Hemoglobin Oxyhemoglobin Sodium Potassium Chloride Carbon Dioxide BUN Creatinine Glucose POC Glucose 117 H Lactic Acid 2.90 H* Calcium Ionized Calcium Phosphorus Magnesium Iron TIBC Ferritin Total Bilirubin Direct Bilirubin AST ALT Alkaline Phosphatase Total Creatine Kinase CK-MB (CK-2) Troponin T C-Reactive Protein 13.30 H Serum Total Protein Total Protein Albumin Cujgh-0-Snjpouayu Cmxcv-2-Zwkdqomyf PEP Interpretation Triglycerides LDL Cholesterol Direct HDL Cholesterol Free T4 PTH Intact Urine WBC (Auto) Urine Creatinine Salicylates Acetaminophen Crossmatch 03/20/19 03/21/19 03/21/19 21:55 04:26 04:26 WBC 37.8 H RBC Hgb Hct MCV MCH MCHC RDW 15.4 H Plt Count 36 L Lymph % (Auto) [place] % (Auto) Eos % (Auto) Lymph # [place] # Eos # Seg Neutrophils % Seg Neuts % (Manual) 93.0 H Lymphocytes % (Manual) 3.0 L Monocytes % (Manual) Nucleated RBC % 1.0 H Seg Neutrophils # 34.6 H Seg Neutrophils # Man 35.2 H Lymphocytes # (Manual) 1.1 L Monocytes # (Manual) PT INR D-Dimer Heparin Anti-Xa Level POC ABG pH ABG pH POC ABG pCO2 POC ABG pO2 ABG pO2 ABG HCO3 ABG O2 Saturation ABG Base Excess ABG Hemoglobin Oxyhemoglobin Sodium 131 L Potassium Chloride 90.7 L Carbon Dioxide 21 L BUN 69 H Creatinine 5.7 H Glucose 170 H POC Glucose 128 H Lactic Acid Calcium 6.1 L D Ionized Calcium Phosphorus Magnesium Iron TIBC Ferritin Total Bilirubin 9.50 H Direct Bilirubin AST 308 H ALT 124 H Alkaline Phosphatase 327 H Total Creatine Kinase 47490 H CK-MB (CK-2) Troponin T C-Reactive Protein Serum Total Protein Total Protein 5.7 L Albumin 2.6 L Cleed-2-Ykwjpgduo Bparo-6-Ohbchryzg PEP Interpretation Triglycerides LDL Cholesterol Direct HDL Cholesterol Free T4 PTH Intact Urine WBC (Auto) Urine Creatinine Salicylates Acetaminophen Crossmatch 03/21/19 03/21/19 03/21/19 05:17 05:39 08:29 WBC RBC Hgb Hct MCV MCH MCHC RDW Plt Count Lymph % (Auto) [place] % (Auto) Eos % (Auto) Lymph # [place] # Eos # Seg Neutrophils % Seg Neuts % (Manual) Lymphocytes % (Manual) Monocytes % (Manual) Nucleated RBC % Seg Neutrophils # Seg Neutrophils # Man Lymphocytes # (Manual) Monocytes # (Manual) PT INR D-Dimer Heparin Anti-Xa Level POC ABG pH ABG pH POC ABG pCO2 POC ABG pO2 209 H ABG pO2 ABG HCO3 ABG O2 Saturation ABG Base Excess ABG Hemoglobin Oxyhemoglobin Sodium Potassium Chloride Carbon Dioxide BUN Creatinine Glucose POC Glucose 145 H Lactic Acid Calcium Ionized Calcium Phosphorus Magnesium Iron TIBC Ferritin Total Bilirubin Direct Bilirubin AST ALT Alkaline Phosphatase Total Creatine Kinase 22977 H CK-MB (CK-2) Troponin T C-Reactive Protein Serum Total Protein Total Protein Albumin Enslz-9-Zfjltaesp Ucyva-4-Odqdunmbu PEP Interpretation Triglycerides LDL Cholesterol Direct HDL Cholesterol Free T4 PTH Intact Urine WBC (Auto) Urine Creatinine Salicylates Acetaminophen Crossmatch 09/25/19 09/25/19 09/25/19 08:29 11:43 12:00 WBC RBC Hgb Hct MCV MCH MCHC RDW Plt Count Lymph % (Auto) [place] % (Auto) Eos % (Auto) Lymph # [place] # Eos # Seg Neutrophils % Seg Neuts % (Manual) Lymphocytes % (Manual) Monocytes % (Manual) Nucleated RBC % Seg Neutrophils # Seg Neutrophils # Man Lymphocytes # (Manual) Monocytes # (Manual) PT INR D-Dimer Heparin Anti-Xa Level POC ABG pH ABG pH POC ABG pCO2 POC ABG pO2 ABG pO2 ABG HCO3 ABG O2 Saturation ABG Base Excess ABG Hemoglobin Oxyhemoglobin Sodium Potassium Chloride Carbon Dioxide BUN Creatinine Glucose POC Glucose 123 H Lactic Acid 2.60 H* 2.20 H* Calcium Ionized Calcium Phosphorus Magnesium Iron TIBC Ferritin Total Bilirubin Direct Bilirubin AST ALT Alkaline Phosphatase Total Creatine Kinase CK-MB (CK-2) Troponin T C-Reactive Protein Serum Total Protein Total Protein Albumin Ovqlc-6-Vnkbgbhkv Hjfld-0-Rdstlalnp PEP Interpretation Triglycerides LDL Cholesterol Direct HDL Cholesterol Free T4 PTH Intact Urine WBC (Auto) Urine Creatinine Salicylates Acetaminophen Crossmatch 03/21/19 03/21/19 03/21/19 14:11 18:28 19:32 WBC RBC Hgb Hct MCV MCH MCHC RDW Plt Count Lymph % (Auto) [place] % (Auto) Eos % (Auto) Lymph # [place] # Eos # Seg Neutrophils % Seg Neuts % (Manual) Lymphocytes % (Manual) Monocytes % (Manual) Nucleated RBC % Seg Neutrophils # Seg Neutrophils # Man Lymphocytes # (Manual) Monocytes # (Manual) PT INR D-Dimer Heparin Anti-Xa Level POC ABG pH 7.293 L ABG pH POC ABG pCO2 POC ABG pO2 ABG pO2 ABG HCO3 ABG O2 Saturation ABG Base Excess ABG Hemoglobin Oxyhemoglobin Sodium Potassium Chloride Carbon Dioxide BUN Creatinine Glucose POC Glucose 153 H Lactic Acid 2.10 H* Calcium Ionized Calcium Phosphorus Magnesium Iron TIBC Ferritin Total Bilirubin Direct Bilirubin AST ALT Alkaline Phosphatase Total Creatine Kinase CK-MB (CK-2) Troponin T C-Reactive Protein Serum Total Protein Total Protein Albumin Bvqiq-7-Yfueuioxu Rfpnn-7-Zfrctobvi PEP Interpretation Triglycerides LDL Cholesterol Direct HDL Cholesterol Free T4 PTH Intact Urine WBC (Auto) Urine Creatinine Salicylates Acetaminophen Crossmatch 03/21/19 03/22/19 03/22/19 23:38 05:08 05:51 WBC RBC Hgb Hct MCV MCH MCHC RDW Plt Count Lymph % (Auto) [place] % (Auto) Eos % (Auto) Lymph # [place] # Eos # Seg Neutrophils % Seg Neuts % (Manual) Lymphocytes % (Manual) Monocytes % (Manual) Nucleated RBC % Seg Neutrophils # Seg Neutrophils # Man Lymphocytes # (Manual) Monocytes # (Manual) PT INR D-Dimer Heparin Anti-Xa Level POC ABG pH 7.283 L ABG pH POC ABG pCO2 POC ABG pO2 53 L ABG pO2 ABG HCO3 ABG O2 Saturation ABG Base Excess ABG Hemoglobin Oxyhemoglobin Sodium Potassium Chloride Carbon Dioxide BUN Creatinine Glucose POC Glucose 149 H 131 H Lactic Acid Calcium Ionized Calcium Phosphorus Magnesium Iron TIBC Ferritin Total Bilirubin Direct Bilirubin AST ALT Alkaline Phosphatase Total Creatine Kinase CK-MB (CK-2) Troponin T C-Reactive Protein Serum Total Protein Total Protein Albumin Qnnzm-1-Mudecgrgu Wqodc-0-Fjuqovrbx PEP Interpretation Triglycerides LDL Cholesterol Direct HDL Cholesterol Free T4 PTH Intact Urine WBC (Auto) Urine Creatinine Salicylates Acetaminophen Crossmatch 03/22/19 03/22/19 03/22/19 08:00 08:00 18:19 WBC 36.7 H RBC Hgb 11.0 L Hct 33.5 L MCV MCH MCHC RDW 15.5 H Plt Count 43 L Lymph % (Auto) [place] % (Auto) Eos % (Auto) Lymph # [place] # Eos # Seg Neutrophils % Seg Neuts % (Manual) 87.0 H Lymphocytes % (Manual) 7.0 L Monocytes % (Manual) Nucleated RBC % Seg Neutrophils # Seg Neutrophils # Man 31.9 H Lymphocytes # (Manual) Monocytes # (Manual) PT INR D-Dimer Heparin Anti-Xa Level POC ABG pH ABG pH POC ABG pCO2 46.4 H POC ABG pO2 108 H ABG pO2 ABG HCO3 ABG O2 Saturation ABG Base Excess ABG Hemoglobin Oxyhemoglobin Sodium 132 L Potassium 5.6 H Chloride 89.6 L Carbon Dioxide 20 L BUN 101 H Creatinine 7.4 H Glucose 124 H POC Glucose Lactic Acid Calcium 5.2 L* Ionized Calcium Phosphorus Magnesium Iron TIBC Ferritin Total Bilirubin 2.80 H Direct Bilirubin AST 119 H ALT 86 H Alkaline Phosphatase 245 H Total Creatine Kinase CK-MB (CK-2) Troponin T C-Reactive Protein Serum Total Protein Total Protein 5.6 L Albumin 2.5 L Vwpkw-1-Xxbpmfflm Weqmf-3-Alzfhrydl PEP Interpretation Triglycerides LDL Cholesterol Direct HDL Cholesterol Free T4 PTH Intact Urine WBC (Auto) Urine Creatinine Salicylates Acetaminophen Crossmatch 03/22/19 03/23/19 03/23/19 20:37 04:49 05:28 WBC 35.9 H RBC Hgb 10.8 L Hct 33.2 L MCV MCH MCHC RDW 15.5 H Plt Count 49 L Lymph % (Auto) [place] % (Auto) Eos % (Auto) Lymph # [place] # Eos # Seg Neutrophils % Seg Neuts % (Manual) 81.0 H Lymphocytes % (Manual) 3.5 L Monocytes % (Manual) Nucleated RBC % Seg Neutrophils # Seg Neutrophils # Man 29.1 H Lymphocytes # (Manual) Monocytes # (Manual) 1.4 H PT INR D-Dimer Heparin Anti-Xa Level POC ABG pH 7.296 L ABG pH POC ABG pCO2 46.2 H POC ABG pO2 ABG pO2 ABG HCO3 ABG O2 Saturation ABG Base Excess ABG Hemoglobin Oxyhemoglobin Sodium 129 L Potassium 5.2 H Chloride 91.1 L Carbon Dioxide BUN 91 H Creatinine 6.6 H Glucose 190 H POC Glucose Lactic Acid Calcium 5.3 L* Ionized Calcium Phosphorus Magnesium Iron TIBC Ferritin Total Bilirubin 1.80 H Direct Bilirubin AST 80 H ALT 62 H Alkaline Phosphatase 209 H Total Creatine Kinase 9758 H CK-MB (CK-2) Troponin T C-Reactive Protein Serum Total Protein Total Protein 5.2 L Albumin 2.2 L Qwjyp-5-Unzdgxmcw Hhwar-6-Kraifcney PEP Interpretation Triglycerides LDL Cholesterol Direct HDL Cholesterol Free T4 PTH Intact Urine WBC (Auto) Urine Creatinine Salicylates Acetaminophen Crossmatch 03/23/19 03/23/19 03/23/19 05:28 05:31 11:33 WBC 29.7 H RBC 3.59 L Hgb 10.1 L Hct 31.1 L MCV MCH MCHC RDW 15.4 H Plt Count 47 L Lymph % (Auto) [place] % (Auto) Eos % (Auto) Lymph # [place] # Eos # Seg Neutrophils % Seg Neuts % (Manual) 89.0 H Lymphocytes % (Manual) 6.0 L Monocytes % (Manual) Nucleated RBC % 1.0 H Seg Neutrophils # Seg Neutrophils # Man 26.4 H Lymphocytes # (Manual) Monocytes # (Manual) PT INR D-Dimer Heparin Anti-Xa Level POC ABG pH ABG pH POC ABG pCO2 POC ABG pO2 ABG pO2 ABG HCO3 ABG O2 Saturation ABG Base Excess ABG Hemoglobin Oxyhemoglobin Sodium Potassium Chloride Carbon Dioxide BUN Creatinine Glucose POC Glucose 122 H 113 H Lactic Acid Calcium Ionized Calcium Phosphorus Magnesium Iron TIBC Ferritin Total Bilirubin Direct Bilirubin AST ALT Alkaline Phosphatase Total Creatine Kinase CK-MB (CK-2) Troponin T C-Reactive Protein Serum Total Protein Total Protein Albumin Llqfn-5-Hsyhsemel Meypq-5-Agjvwyceg PEP Interpretation Triglycerides LDL Cholesterol Direct HDL Cholesterol Free T4 PTH Intact Urine WBC (Auto) Urine Creatinine Salicylates Acetaminophen Crossmatch 03/23/19 03/24/19 03/24/19 17:47 00:00 04:50 WBC 35.0 H RBC Hgb 10.4 L Hct 32.4 L MCV MCH MCHC RDW Plt Count 60 L Lymph % (Auto) [place] % (Auto) Eos % (Auto) Lymph # [place] # Eos # Seg Neutrophils % Seg Neuts % (Manual) 93.0 H Lymphocytes % (Manual) 5.0 L Monocytes % (Manual) Nucleated RBC % 7.0 H Seg Neutrophils # Seg Neutrophils # Man 32.6 H Lymphocytes # (Manual) Monocytes # (Manual) PT INR D-Dimer Heparin Anti-Xa Level POC ABG pH ABG pH POC ABG pCO2 POC ABG pO2 ABG pO2 ABG HCO3 ABG O2 Saturation ABG Base Excess ABG Hemoglobin Oxyhemoglobin Sodium Potassium Chloride Carbon Dioxide BUN Creatinine Glucose POC Glucose 111 H 108 H Lactic Acid Calcium Ionized Calcium Phosphorus Magnesium Iron TIBC Ferritin Total Bilirubin Direct Bilirubin AST ALT Alkaline Phosphatase Total Creatine Kinase CK-MB (CK-2) Troponin T C-Reactive Protein Serum Total Protein Total Protein Albumin Xamqk-5-Nvrugsbvy Cxyzy-7-Hheeoqqjg PEP Interpretation Triglycerides LDL Cholesterol Direct HDL Cholesterol Free T4 PTH Intact Urine WBC (Auto) Urine Creatinine Salicylates Acetaminophen Crossmatch 03/24/19 03/24/19 03/24/19 04:50 05:06 12:55 WBC RBC Hgb Hct MCV MCH MCHC RDW Plt Count Lymph % (Auto) [place] % (Auto) Eos % (Auto) Lymph # [place] # Eos # Seg Neutrophils % Seg Neuts % (Manual) Lymphocytes % (Manual) Monocytes % (Manual) Nucleated RBC % Seg Neutrophils # Seg Neutrophils # Man Lymphocytes # (Manual) Monocytes # (Manual) PT INR D-Dimer Heparin Anti-Xa Level POC ABG pH ABG pH POC ABG pCO2 POC ABG pO2 ABG pO2 ABG HCO3 ABG O2 Saturation ABG Base Excess ABG Hemoglobin Oxyhemoglobin Sodium 134 L Potassium 5.1 H Chloride 95.3 L Carbon Dioxide 21 L BUN 85 H Creatinine 6.4 H Glucose 109 H POC Glucose 112 H 110 H Lactic Acid Calcium 5.8 L* Ionized Calcium Phosphorus Magnesium Iron TIBC Ferritin Total Bilirubin Direct Bilirubin AST ALT Alkaline Phosphatase Total Creatine Kinase 5747 H CK-MB (CK-2) Troponin T C-Reactive Protein Serum Total Protein Total Protein Albumin Kechp-3-Vukkxazuw Whxnj-7-Fqsyxmfez PEP Interpretation Triglycerides LDL Cholesterol Direct HDL Cholesterol Free T4 PTH Intact Urine WBC (Auto) Urine Creatinine Salicylates Acetaminophen Crossmatch 03/24/19 03/25/19 03/25/19 23:29 05:00 05:00 WBC RBC Hgb Hct MCV MCH MCHC RDW Plt Count Lymph % (Auto) [place] % (Auto) Eos % (Auto) Lymph # [place] # Eos # Seg Neutrophils % Seg Neuts % (Manual) Lymphocytes % (Manual) Monocytes % (Manual) Nucleated RBC % Seg Neutrophils # Seg Neutrophils # Man Lymphocytes # (Manual) Monocytes # (Manual) PT INR D-Dimer Heparin Anti-Xa Level POC ABG pH ABG pH POC ABG pCO2 POC ABG pO2 ABG pO2 ABG HCO3 ABG O2 Saturation ABG Base Excess ABG Hemoglobin Oxyhemoglobin Sodium 133 L Potassium Chloride 94.0 L Carbon Dioxide 21 L BUN 81 H Creatinine 6.4 H Glucose POC Glucose 109 H Lactic Acid Calcium 5.5 L* Ionized Calcium Phosphorus Magnesium Iron TIBC Ferritin Total Bilirubin Direct Bilirubin AST 80 H ALT Alkaline Phosphatase 202 H Total Creatine Kinase 3589 H CK-MB (CK-2) Troponin T C-Reactive Protein Serum Total Protein Total Protein 5.3 L Albumin 2.4 L Tvsgx-6-Tllhctnev Rtdkn-5-Gacdgxgzc PEP Interpretation Triglycerides LDL Cholesterol Direct HDL Cholesterol Free T4 PTH Intact 329.9 H Urine WBC (Auto) Urine Creatinine Salicylates Acetaminophen Crossmatch 03/25/19 03/25/19 03/26/19 05:00 06:30 04:30 WBC 23.3 H RBC 3.61 L Hgb 10.2 L Hct 31.2 L MCV MCH MCHC RDW Plt Count 57 L Lymph % (Auto) [place] % (Auto) Eos % (Auto) Lymph # [place] # Eos # Seg Neutrophils % Seg Neuts % (Manual) 92.0 H Lymphocytes % (Manual) 6.0 L Monocytes % (Manual) Nucleated RBC % Seg Neutrophils # Seg Neutrophils # Man 21.4 H Lymphocytes # (Manual) Monocytes # (Manual) PT INR D-Dimer Heparin Anti-Xa Level POC ABG pH ABG pH 7.326 L POC ABG pCO2 POC ABG pO2 ABG pO2 109.5 H 137.4 H ABG HCO3 18.8 L 18.6 L ABG O2 Saturation ABG Base Excess -4.4 L -6.8 L ABG Hemoglobin 10.1 L 9.9 L Oxyhemoglobin Sodium Potassium Chloride Carbon Dioxide BUN Creatinine Glucose POC Glucose Lactic Acid Calcium Ionized Calcium Phosphorus Magnesium Iron TIBC Ferritin Total Bilirubin Direct Bilirubin AST ALT Alkaline Phosphatase Total Creatine Kinase CK-MB (CK-2) Troponin T C-Reactive Protein Serum Total Protein Total Protein Albumin Rckcr-0-Bdwizqzdl Orary-4-Mlzfqisji PEP Interpretation Triglycerides LDL Cholesterol Direct HDL Cholesterol Free T4 PTH Intact Urine WBC (Auto) Urine Creatinine Salicylates Acetaminophen Crossmatch 03/26/19 03/26/19 03/26/19 23:22 Unknown Unknown WBC 19.5 H RBC 3.44 L Hgb 9.8 L Hct 29.9 L MCV MCH MCHC RDW Plt Count 85 L Lymph % (Auto) [place] % (Auto) Eos % (Auto) Lymph # [place] # Eos # Seg Neutrophils % Seg Neuts % (Manual) 95.0 H Lymphocytes % (Manual) 3.0 L Monocytes % (Manual) Nucleated RBC % Seg Neutrophils # Seg Neutrophils # Man 18.5 H Lymphocytes # (Manual) 0.6 L Monocytes # (Manual) PT INR D-Dimer Heparin Anti-Xa Level POC ABG pH ABG pH POC ABG pCO2 POC ABG pO2 ABG pO2 ABG HCO3 ABG O2 Saturation ABG Base Excess ABG Hemoglobin Oxyhemoglobin Sodium 135 L Potassium 5.2 H D Chloride 92.2 L Carbon Dioxide 18 L BUN 109 H Creatinine 8.5 H Glucose 117 H POC Glucose 69 L Lactic Acid Calcium 4.5 L* D Ionized Calcium Phosphorus Magnesium Iron TIBC Ferritin Total Bilirubin Direct Bilirubin AST ALT Alkaline Phosphatase Total Creatine Kinase 4527 H CK-MB (CK-2) Troponin T C-Reactive Protein Serum Total Protein Total Protein Albumin Ntxdw-2-Xfpnrjsll Xiywg-1-Gfivbzzds PEP Interpretation Triglycerides LDL Cholesterol Direct HDL Cholesterol Free T4 PTH Intact Urine WBC (Auto) Urine Creatinine Salicylates Acetaminophen Crossmatch 03/27/19 03/27/19 03/27/19 04:30 04:30 09:00 WBC 19.2 H RBC 3.42 L Hgb 9.9 L Hct 30.0 L MCV MCH MCHC RDW Plt Count 84 L Lymph % (Auto) [place] % (Auto) Eos % (Auto) Lymph # [place] # Eos # Seg Neutrophils % Seg Neuts % (Manual) Lymphocytes % (Manual) Monocytes % (Manual) Nucleated RBC % Seg Neutrophils # Seg Neutrophils # Man Lymphocytes # (Manual) Monocytes # (Manual) PT INR D-Dimer Heparin Anti-Xa Level POC ABG pH ABG pH POC ABG pCO2 POC ABG pO2 ABG pO2 ABG HCO3 ABG O2 Saturation ABG Base Excess ABG Hemoglobin Oxyhemoglobin Sodium 135 L Potassium Chloride 93.5 L Carbon Dioxide BUN 84 H Creatinine 7.1 H Glucose POC Glucose Lactic Acid Calcium 5.0 L* Ionized Calcium Phosphorus Magnesium Iron TIBC Ferritin Total Bilirubin Direct Bilirubin AST 78 H ALT Alkaline Phosphatase 135 H Total Creatine Kinase 4677 H CK-MB (CK-2) Troponin T C-Reactive Protein Serum Total Protein Total Protein 4.8 L Albumin 2.3 L Yspbh-2-Tghxeanhm Jayvs-4-Kameewvme PEP Interpretation Triglycerides 409 H LDL Cholesterol Direct HDL Cholesterol Free T4 PTH Intact Urine WBC (Auto) Urine Creatinine Salicylates Acetaminophen Crossmatch 03/27/19 03/27/19 03/27/19 12:37 14:15 14:15 WBC RBC Hgb 9.7 L Hct 29.5 L MCV MCH MCHC RDW Plt Count 87 L Lymph % (Auto) [place] % (Auto) Eos % (Auto) Lymph # [place] # Eos # Seg Neutrophils % Seg Neuts % (Manual) Lymphocytes % (Manual) Monocytes % (Manual) Nucleated RBC % Seg Neutrophils # Seg Neutrophils # Man Lymphocytes # (Manual) Monocytes # (Manual) PT 15.9 H INR 1.30 H D-Dimer Heparin Anti-Xa Level POC ABG pH ABG pH POC ABG pCO2 POC ABG pO2 ABG pO2 ABG HCO3 ABG O2 Saturation ABG Base Excess ABG Hemoglobin Oxyhemoglobin Sodium Potassium Chloride Carbon Dioxide BUN Creatinine Glucose POC Glucose 129 H Lactic Acid Calcium Ionized Calcium Phosphorus Magnesium Iron TIBC Ferritin Total Bilirubin Direct Bilirubin AST ALT Alkaline Phosphatase Total Creatine Kinase CK-MB (CK-2) Troponin T C-Reactive Protein Serum Total Protein Total Protein Albumin Iuceb-3-Rpqxwhifp Hdsaa-8-Blfgqbqes PEP Interpretation Triglycerides LDL Cholesterol Direct HDL Cholesterol Free T4 PTH Intact Urine WBC (Auto) Urine Creatinine Salicylates Acetaminophen Crossmatch 03/27/19 03/27/19 03/27/19 18:00 19:22 19:23 WBC RBC Hgb Hct MCV MCH MCHC RDW Plt Count Lymph % (Auto) [place] % (Auto) Eos % (Auto) Lymph # [place] # Eos # Seg Neutrophils % Seg Neuts % (Manual) Lymphocytes % (Manual) Monocytes % (Manual) Nucleated RBC % Seg Neutrophils # Seg Neutrophils # Man Lymphocytes # (Manual) Monocytes # (Manual) PT INR D-Dimer Heparin Anti-Xa Level < 0.10 L POC ABG pH ABG pH POC ABG pCO2 POC ABG pO2 ABG pO2 ABG HCO3 ABG O2 Saturation ABG Base Excess ABG Hemoglobin Oxyhemoglobin Sodium Potassium Chloride Carbon Dioxide BUN Creatinine Glucose POC Glucose 121 H Lactic Acid Calcium Ionized Calcium Phosphorus Magnesium Iron TIBC Ferritin Total Bilirubin Direct Bilirubin AST ALT Alkaline Phosphatase Total Creatine Kinase 4517 H CK-MB (CK-2) Troponin T C-Reactive Protein Serum Total Protein Total Protein Albumin Uvjtf-5-Qjcmyxolu Piemw-3-Pshxtovys PEP Interpretation Triglycerides LDL Cholesterol Direct HDL Cholesterol Free T4 PTH Intact Urine WBC (Auto) Urine Creatinine Salicylates Acetaminophen Crossmatch 03/27/19 03/27/19 03/28/19 22:10 23:52 03:49 WBC RBC Hgb Hct MCV MCH MCHC RDW Plt Count Lymph % (Auto) [place] % (Auto) Eos % (Auto) Lymph # [place] # Eos # Seg Neutrophils % Seg Neuts % (Manual) Lymphocytes % (Manual) Monocytes % (Manual) Nucleated RBC % Seg Neutrophils # Seg Neutrophils # Man Lymphocytes # (Manual) Monocytes # (Manual) PT INR D-Dimer Heparin Anti-Xa Level POC ABG pH 7.338 L ABG pH POC ABG pCO2 33.1 L POC ABG pO2 ABG pO2 ABG HCO3 ABG O2 Saturation ABG Base Excess ABG Hemoglobin Oxyhemoglobin Sodium Potassium Chloride Carbon Dioxide BUN Creatinine Glucose POC Glucose 113 H 117 H Lactic Acid Calcium Ionized Calcium Phosphorus Magnesium Iron TIBC Ferritin Total Bilirubin Direct Bilirubin AST ALT Alkaline Phosphatase Total Creatine Kinase CK-MB (CK-2) Troponin T C-Reactive Protein Serum Total Protein Total Protein Albumin Fxmng-2-Erdilafde Psxef-9-Babphyvrs PEP Interpretation Triglycerides LDL Cholesterol Direct HDL Cholesterol Free T4 PTH Intact Urine WBC (Auto) Urine Creatinine Salicylates Acetaminophen Crossmatch 03/28/19 03/28/19 03/28/19 05:13 05:13 06:18 WBC RBC Hgb Hct MCV MCH MCHC RDW Plt Count Lymph % (Auto) [place] % (Auto) Eos % (Auto) Lymph # [place] # Eos # Seg Neutrophils % Seg Neuts % (Manual) Lymphocytes % (Manual) Monocytes % (Manual) Nucleated RBC % Seg Neutrophils # Seg Neutrophils # Man Lymphocytes # (Manual) Monocytes # (Manual) PT INR D-Dimer Heparin Anti-Xa Level 0.23 L POC ABG pH ABG pH POC ABG pCO2 POC ABG pO2 ABG pO2 ABG HCO3 ABG O2 Saturation ABG Base Excess ABG Hemoglobin Oxyhemoglobin Sodium 135 L Potassium 5.5 H D Chloride 95.1 L Carbon Dioxide 16 L D BUN 129 H Creatinine 9.3 H Glucose 158 H POC Glucose 202 H Lactic Acid Calcium 4.0 L* D Ionized Calcium Phosphorus 12.40 H Magnesium Iron TIBC Ferritin Total Bilirubin Direct Bilirubin AST ALT Alkaline Phosphatase Total Creatine Kinase 4266 H CK-MB (CK-2) Troponin T C-Reactive Protein Serum Total Protein Total Protein Albumin Priqt-9-Dzmuscjld Ixtzq-2-Jxpfdsumf PEP Interpretation Triglycerides LDL Cholesterol Direct HDL Cholesterol Free T4 PTH Intact Urine WBC (Auto) Urine Creatinine Salicylates Acetaminophen Crossmatch 03/28/19 03/28/19 03/28/19 08:25 10:00 12:00 WBC RBC Hgb 4.9 L* D Hct 15.4 L* D MCV MCH MCHC RDW Plt Count Lymph % (Auto) [place] % (Auto) Eos % (Auto) Lymph # [place] # Eos # Seg Neutrophils % Seg Neuts % (Manual) Lymphocytes % (Manual) Monocytes % (Manual) Nucleated RBC % Seg Neutrophils # Seg Neutrophils # Man Lymphocytes # (Manual) Monocytes # (Manual) PT 17.9 H INR 1.52 H D-Dimer 4845.98 H Heparin Anti-Xa Level POC ABG pH ABG pH POC ABG pCO2 POC ABG pO2 ABG pO2 ABG HCO3 ABG O2 Saturation ABG Base Excess ABG Hemoglobin Oxyhemoglobin Sodium Potassium Chloride Carbon Dioxide BUN Creatinine Glucose POC Glucose Lactic Acid Calcium Ionized Calcium Phosphorus Magnesium Iron TIBC Ferritin Total Bilirubin Direct Bilirubin AST ALT Alkaline Phosphatase Total Creatine Kinase CK-MB (CK-2) Troponin T C-Reactive Protein Serum Total Protein Total Protein Albumin Ictro-4-Uczlnqifi Ovnjn-7-Nutkumurq PEP Interpretation Triglycerides LDL Cholesterol Direct HDL Cholesterol Free T4 PTH Intact Urine WBC (Auto) Urine Creatinine Salicylates Acetaminophen Crossmatch See Detail 03/28/19 03/28/19 03/28/19 12:28 14:10 17:43 WBC RBC Hgb 5.9 L* Hct 18.3 L* MCV MCH MCHC RDW Plt Count Lymph % (Auto) [place] % (Auto) Eos % (Auto) Lymph # [place] # Eos # Seg Neutrophils % Seg Neuts % (Manual) Lymphocytes % (Manual) Monocytes % (Manual) Nucleated RBC % Seg Neutrophils # Seg Neutrophils # Man Lymphocytes # (Manual) Monocytes # (Manual) PT INR D-Dimer Heparin Anti-Xa Level POC ABG pH ABG pH POC ABG pCO2 POC ABG pO2 ABG pO2 ABG HCO3 ABG O2 Saturation ABG Base Excess ABG Hemoglobin Oxyhemoglobin Sodium Potassium Chloride Carbon Dioxide BUN Creatinine Glucose POC Glucose 153 H 159 H Lactic Acid Calcium Ionized Calcium Phosphorus Magnesium Iron TIBC Ferritin Total Bilirubin Direct Bilirubin AST ALT Alkaline Phosphatase Total Creatine Kinase CK-MB (CK-2) Troponin T C-Reactive Protein Serum Total Protein Total Protein Albumin Lqdhf-2-Akxtxfwzn Wnswz-8-Zpkwthqwl PEP Interpretation Triglycerides LDL Cholesterol Direct HDL Cholesterol Free T4 PTH Intact Urine WBC (Auto) Urine Creatinine Salicylates Acetaminophen Crossmatch 03/28/19 03/28/19 03/28/19 18:10 Unknown 23:59 WBC 24.8 H RBC 3.42 L Hgb 10.2 L D Hct 31.1 L D MCV MCH MCHC RDW 15.4 H Plt Count 54 L Lymph % (Auto) [place] % (Auto) Eos % (Auto) Lymph # [place] # Eos # Seg Neutrophils % Seg Neuts % (Manual) 91.0 H Lymphocytes % (Manual) 8.0 L Monocytes % (Manual) Nucleated RBC % Seg Neutrophils # Seg Neutrophils # Man 22.6 H Lymphocytes # (Manual) Monocytes # (Manual) PT INR D-Dimer Heparin Anti-Xa Level POC ABG pH ABG pH POC ABG pCO2 POC ABG pO2 ABG pO2 ABG HCO3 ABG O2 Saturation ABG Base Excess ABG Hemoglobin Oxyhemoglobin Sodium Potassium 5.7 H Chloride Carbon Dioxide BUN Creatinine Glucose POC Glucose 107 H Lactic Acid Calcium Ionized Calcium Phosphorus Magnesium Iron TIBC Ferritin Total Bilirubin Direct Bilirubin AST ALT Alkaline Phosphatase Total Creatine Kinase CK-MB (CK-2) Troponin T C-Reactive Protein Serum Total Protein Total Protein Albumin Olojx-8-Fcytjdpcn Qhapa-2-Jvbgtftug PEP Interpretation Triglycerides LDL Cholesterol Direct HDL Cholesterol Free T4 PTH Intact Urine WBC (Auto) Urine Creatinine Salicylates Acetaminophen Crossmatch 03/29/19 03/29/19 03/29/19 04:29 05:46 06:22 WBC RBC Hgb 8.6 L Hct 25.7 L MCV MCH MCHC RDW Plt Count 93 L Lymph % (Auto) [place] % (Auto) Eos % (Auto) Lymph # [place] # Eos # Seg Neutrophils % Seg Neuts % (Manual) Lymphocytes % (Manual) Monocytes % (Manual) Nucleated RBC % Seg Neutrophils # Seg Neutrophils # Man Lymphocytes # (Manual) Monocytes # (Manual) PT INR D-Dimer Heparin Anti-Xa Level POC ABG pH ABG pH POC ABG pCO2 32.2 L POC ABG pO2 ABG pO2 ABG HCO3 ABG O2 Saturation ABG Base Excess ABG Hemoglobin Oxyhemoglobin Sodium Potassium Chloride Carbon Dioxide BUN Creatinine Glucose POC Glucose 113 H Lactic Acid Calcium Ionized Calcium Phosphorus Magnesium Iron TIBC Ferritin Total Bilirubin Direct Bilirubin AST ALT Alkaline Phosphatase Total Creatine Kinase CK-MB (CK-2) Troponin T C-Reactive Protein Serum Total Protein Total Protein Albumin Xcweo-3-Dmfdufywj Ybflk-6-Jgcdlpxqp PEP Interpretation Triglycerides LDL Cholesterol Direct HDL Cholesterol Free T4 PTH Intact Urine WBC (Auto) Urine Creatinine Salicylates Acetaminophen Crossmatch 03/29/19 03/29/19 03/29/19 06:22 06:22 06:22 WBC 23.2 H RBC 2.91 L Hgb 8.6 L Hct 25.8 L MCV MCH MCHC RDW Plt Count 91 L Lymph % (Auto) [place] % (Auto) Eos % (Auto) Lymph # [place] # Eos # Seg Neutrophils % Seg Neuts % (Manual) Lymphocytes % (Manual) Monocytes % (Manual) Nucleated RBC % Seg Neutrophils # Seg Neutrophils # Man Lymphocytes # (Manual) Monocytes # (Manual) PT INR D-Dimer Heparin Anti-Xa Level POC ABG pH ABG pH POC ABG pCO2 POC ABG pO2 ABG pO2 ABG HCO3 ABG O2 Saturation ABG Base Excess ABG Hemoglobin Oxyhemoglobin Sodium 133 L Potassium Chloride 93.8 L Carbon Dioxide 18 L BUN 109 H Creatinine 7.4 H Glucose 124 H POC Glucose Lactic Acid Calcium 4.6 L* Ionized Calcium Phosphorus Magnesium Iron TIBC Ferritin Total Bilirubin Direct Bilirubin AST ALT Alkaline Phosphatase Total Creatine Kinase 3401 H CK-MB (CK-2) Troponin T C-Reactive Protein Serum Total Protein Total Protein Albumin Kfmol-0-Xmccjqfgf Mlaib-3-Msmofkbuj PEP Interpretation Triglycerides 309 H LDL Cholesterol Direct HDL Cholesterol Free T4 PTH Intact Urine WBC (Auto) Urine Creatinine Salicylates Acetaminophen Crossmatch 03/29/19 03/29/19 03/29/19 11:48 11:48 18:24 WBC RBC Hgb 7.8 L Hct 23.2 L MCV MCH MCHC RDW Plt Count Lymph % (Auto) [place] % (Auto) Eos % (Auto) Lymph # [place] # Eos # Seg Neutrophils % Seg Neuts % (Manual) Lymphocytes % (Manual) Monocytes % (Manual) Nucleated RBC % Seg Neutrophils # Seg Neutrophils # Man Lymphocytes # (Manual) Monocytes # (Manual) PT 15.3 H INR 1.24 H D-Dimer Heparin Anti-Xa Level POC ABG pH ABG pH POC ABG pCO2 POC ABG pO2 ABG pO2 ABG HCO3 ABG O2 Saturation ABG Base Excess ABG Hemoglobin Oxyhemoglobin Sodium Potassium Chloride Carbon Dioxide BUN Creatinine Glucose POC Glucose 122 H Lactic Acid Calcium Ionized Calcium Phosphorus Magnesium Iron TIBC Ferritin Total Bilirubin Direct Bilirubin AST ALT Alkaline Phosphatase Total Creatine Kinase CK-MB (CK-2) Troponin T C-Reactive Protein Serum Total Protein Total Protein Albumin Esood-7-Uiizhdhpq Pbetw-0-Wyzldvbck PEP Interpretation Triglycerides LDL Cholesterol Direct HDL Cholesterol Free T4 PTH Intact Urine WBC (Auto) Urine Creatinine Salicylates Acetaminophen Crossmatch 03/30/19 03/30/19 03/30/19 00:40 04:31 05:04 WBC RBC Hgb 7.6 L Hct 23.0 L MCV MCH MCHC RDW Plt Count Lymph % (Auto) [place] % (Auto) Eos % (Auto) Lymph # [place] # Eos # Seg Neutrophils % Seg Neuts % (Manual) Lymphocytes % (Manual) Monocytes % (Manual) Nucleated RBC % Seg Neutrophils # Seg Neutrophils # Man Lymphocytes # (Manual) Monocytes # (Manual) PT INR D-Dimer Heparin Anti-Xa Level POC ABG pH 7.346 L ABG pH POC ABG pCO2 POC ABG pO2 62 L ABG pO2 ABG HCO3 ABG O2 Saturation ABG Base Excess ABG Hemoglobin Oxyhemoglobin Sodium Potassium Chloride Carbon Dioxide BUN 79 H Creatinine 6.4 H Glucose POC Glucose Lactic Acid Calcium 6.1 L D Ionized Calcium Phosphorus Magnesium Iron TIBC Ferritin Total Bilirubin Direct Bilirubin AST ALT Alkaline Phosphatase Total Creatine Kinase CK-MB (CK-2) Troponin T C-Reactive Protein Serum Total Protein Total Protein Albumin [place]rhn-7-Jbfgcuign Jpayq-1-Xicsjtsvv PEP Interpretation Triglycerides LDL Cholesterol Direct HDL Cholesterol Free T4 PTH Intact Urine WBC (Auto) Urine Creatinine Salicylates Acetaminophen Crossmatch 03/30/19 03/30/19 03/30/19 08:45 12:09 22:43 WBC 14.3 H RBC 2.33 L Hgb 7.0 L 7.4 L Hct 21.0 L 22.3 L MCV MCH MCHC RDW 15.6 H Plt Count 135 L Lymph % (Auto) [place] % (Auto) Eos % (Auto) Lymph # [place] # Eos # Seg Neutrophils % Seg Neuts % (Manual) Lymphocytes % (Manual) Monocytes % (Manual) Nucleated RBC % Seg Neutrophils # Seg Neutrophils # Man Lymphocytes # (Manual) Monocytes # (Manual) PT INR D-Dimer Heparin Anti-Xa Level POC ABG pH ABG pH POC ABG pCO2 POC ABG pO2 ABG pO2 ABG HCO3 ABG O2 Saturation ABG Base Excess ABG Hemoglobin Oxyhemoglobin Sodium Potassium Chloride Carbon Dioxide BUN Creatinine Glucose POC Glucose Lactic Acid Calcium Ionized Calcium 3.7 L Phosphorus Magnesium Iron TIBC Ferritin Total Bilirubin Direct Bilirubin AST ALT Alkaline Phosphatase Total Creatine Kinase CK-MB (CK-2) Troponin T C-Reactive Protein Serum Total Protein Total Protein Albumin Jxwsn-0-Xcjifiorn Ovjjr-3-Msuzmyvde PEP Interpretation Triglycerides LDL Cholesterol Direct HDL Cholesterol Free T4 PTH Intact Urine WBC (Auto) Urine Creatinine Salicylates Acetaminophen Crossmatch 03/30/19 03/30/19 03/31/19 23:38 Unknown 04:44 WBC 11.5 H RBC 2.40 L Hgb 7.3 L Hct 21.9 L MCV MCH MCHC RDW 15.4 H Plt Count Lymph % (Auto) 10.6 L [place] % (Auto) Eos % (Auto) Lymph # [place] # Eos # Seg Neutrophils % 81.7 H Seg Neuts % (Manual) Lymphocytes % (Manual) Monocytes % (Manual) Nucleated RBC % Seg Neutrophils # 9.4 H Seg Neutrophils # Man Lymphocytes # (Manual) Monocytes # (Manual) PT INR D-Dimer Heparin Anti-Xa Level POC ABG pH ABG pH POC ABG pCO2 POC ABG pO2 ABG pO2 ABG HCO3 ABG O2 Saturation ABG Base Excess ABG Hemoglobin Oxyhemoglobin Sodium Potassium Chloride Carbon Dioxide BUN Creatinine Glucose POC Glucose 155 H Lactic Acid Calcium Ionized Calcium Phosphorus Magnesium Iron TIBC Ferritin Total Bilirubin Direct Bilirubin 0.4 H AST 63 H ALT Alkaline Phosphatase Total Creatine Kinase CK-MB (CK-2) Troponin T C-Reactive Protein Serum Total Protein Total Protein 4.9 L Albumin 2.2 L Fjpvm-1-Pxlwnsbbm Qqqyd-2-Lxorovgxt PEP Interpretation Triglycerides LDL Cholesterol Direct HDL Cholesterol Free T4 PTH Intact Urine WBC (Auto) Urine Creatinine Salicylates Acetaminophen Crossmatch 03/31/19 03/31/19 03/31/19 04:44 05:44 08:20 WBC RBC Hgb Hct MCV MCH MCHC RDW Plt Count Lymph % (Auto) [place] % (Auto) Eos % (Auto) Lymph # [place] # Eos # Seg Neutrophils % Seg Neuts % (Manual) Lymphocytes % (Manual) Monocytes % (Manual) Nucleated RBC % Seg Neutrophils # Seg Neutrophils # Man Lymphocytes # (Manual) Monocytes # (Manual) PT INR D-Dimer Heparin Anti-Xa Level POC ABG pH ABG pH POC ABG pCO2 53.5 H POC ABG pO2 62 L ABG pO2 ABG HCO3 ABG O2 Saturation ABG Base Excess ABG Hemoglobin Oxyhemoglobin Sodium 135 L Potassium Chloride 96.7 L Carbon Dioxide 19 L BUN 94 H Creatinine 7.8 H Glucose POC Glucose Lactic Acid Calcium 5.3 L* Ionized Calcium Phosphorus 8.20 H Magnesium Iron TIBC Ferritin Total Bilirubin Direct Bilirubin 0.4 H AST 60 H ALT Alkaline Phosphatase Total Creatine Kinase CK-MB (CK-2) Troponin T C-Reactive Protein Serum Total Protein Total Protein 4.8 L Albumin 2.1 L Bapjh-9-Mhjlebiyu Qedrp-1-Gkrnnirqp PEP Interpretation Triglycerides LDL Cholesterol Direct HDL Cholesterol Free T4 PTH Intact Urine WBC (Auto) Urine Creatinine Salicylates Acetaminophen Crossmatch 03/31/19 04/01/19 04/01/19 22:14 04:27 04:27 WBC RBC 2.60 L Hgb 8.0 L Hct 24.1 L MCV MCH MCHC RDW 15.7 H Plt Count Lymph % (Auto) 7.9 L [place] % (Auto) Eos % (Auto) Lymph # 0.7 L [place] # Eos # Seg Neutrophils % 83.6 H Seg Neuts % (Manual) Lymphocytes % (Manual) Monocytes % (Manual) Nucleated RBC % Seg Neutrophils # Seg Neutrophils # Man Lymphocytes # (Manual) Monocytes # (Manual) PT INR D-Dimer Heparin Anti-Xa Level POC ABG pH 7.286 L ABG pH POC ABG pCO2 54.7 H POC ABG pO2 179 H ABG pO2 ABG HCO3 ABG O2 Saturation ABG Base Excess ABG Hemoglobin Oxyhemoglobin Sodium Potassium Chloride Carbon Dioxide BUN 68 H Creatinine 6.6 H Glucose POC Glucose Lactic Acid Calcium 6.5 L D Ionized Calcium Phosphorus 7.30 H Magnesium Iron TIBC Ferritin Total Bilirubin Direct Bilirubin AST ALT Alkaline Phosphatase Total Creatine Kinase 1652 H CK-MB (CK-2) Troponin T C-Reactive Protein Serum Total Protein Total Protein Albumin Tmzyq-1-Xthalgphr Sihra-1-Iovdscrxl PEP Interpretation Triglycerides LDL Cholesterol Direct HDL Cholesterol Free T4 PTH Intact Urine WBC (Auto) Urine Creatinine Salicylates Acetaminophen Crossmatch 04/01/19 04/01/19 04/01/19 05:14 05:37 18:37 WBC RBC Hgb Hct MCV MCH MCHC RDW Plt Count Lymph % (Auto) [place] % (Auto) Eos % (Auto) Lymph # [place] # Eos # Seg Neutrophils % Seg Neuts % (Manual) Lymphocytes % (Manual) Monocytes % (Manual) Nucleated RBC % Seg Neutrophils # Seg Neutrophils # Man Lymphocytes # (Manual) Monocytes # (Manual) PT INR D-Dimer Heparin Anti-Xa Level POC ABG pH 7.283 L ABG pH POC ABG pCO2 53.4 H POC ABG pO2 241 H ABG pO2 ABG HCO3 ABG O2 Saturation ABG Base Excess ABG Hemoglobin Oxyhemoglobin Sodium Potassium Chloride Carbon Dioxide BUN Creatinine Glucose POC Glucose 111 H 119 H Lactic Acid Calcium Ionized Calcium Phosphorus Magnesium Iron TIBC Ferritin Total Bilirubin Direct Bilirubin AST ALT Alkaline Phosphatase Total Creatine Kinase CK-MB (CK-2) Troponin T C-Reactive Protein Serum Total Protein Total Protein Albumin Ybvbj-3-Ijtjcrpzj Qkjnh-0-Memyqiglw PEP Interpretation Triglycerides LDL Cholesterol Direct HDL Cholesterol Free T4 PTH Intact Urine WBC (Auto) Urine Creatinine Salicylates Acetaminophen Crossmatch 10/12/1304/02/19 04/02/19 21:28 04:40 05:03 WBC RBC 2.36 L Hgb 7.2 L Hct 21.9 L MCV MCH MCHC RDW 16.0 H Plt Count Lymph % (Auto) 10.8 L [place] % (Auto) Eos % (Auto) Lymph # 0.8 L [place] # Eos # Seg Neutrophils % 80.3 H Seg Neuts % (Manual) Lymphocytes % (Manual) Monocytes % (Manual) Nucleated RBC % Seg Neutrophils # Seg Neutrophils # Man Lymphocytes # (Manual) Monocytes # (Manual) PT INR D-Dimer Heparin Anti-Xa Level POC ABG pH 7.299 L 7.300 L ABG pH POC ABG pCO2 48.2 H 45.2 H POC ABG pO2 133 H 107 H ABG pO2 ABG HCO3 ABG O2 Saturation ABG Base Excess ABG Hemoglobin Oxyhemoglobin Sodium Potassium Chloride Carbon Dioxide BUN Creatinine Glucose POC Glucose Lactic Acid Calcium Ionized Calcium Phosphorus Magnesium Iron TIBC Ferritin Total Bilirubin Direct Bilirubin AST ALT Alkaline Phosphatase Total Creatine Kinase CK-MB (CK-2) Troponin T C-Reactive Protein Serum Total Protein Total Protein Albumin Qxydc-7-Eegajdqej Bihlr-8-Gxbkpecmp PEP Interpretation Triglycerides LDL Cholesterol Direct HDL Cholesterol Free T4 PTH Intact Urine WBC (Auto) Urine Creatinine Salicylates Acetaminophen Crossmatch 04/02/19 04/02/19 04/02/19 05:03 05:03 12:15 WBC RBC Hgb 7.4 L Hct 22.6 L MCV MCH MCHC RDW Plt Count Lymph % (Auto) [place] % (Auto) Eos % (Auto) Lymph # [place] # Eos # Seg Neutrophils % Seg Neuts % (Manual) Lymphocytes % (Manual) Monocytes % (Manual) Nucleated RBC % Seg Neutrophils # Seg Neutrophils # Man Lymphocytes # (Manual) Monocytes # (Manual) PT INR D-Dimer Heparin Anti-Xa Level POC ABG pH ABG pH POC ABG pCO2 POC ABG pO2 ABG pO2 ABG HCO3 ABG O2 Saturation ABG Base Excess ABG Hemoglobin Oxyhemoglobin Sodium 136 L Potassium Chloride 97.8 L Carbon Dioxide 18 L BUN 82 H Creatinine 8.2 H Glucose POC Glucose Lactic Acid Calcium 6.7 L Ionized Calcium Phosphorus 7.50 H Magnesium Iron 26 L TIBC 138 L Ferritin 607.0 H Total Bilirubin Direct Bilirubin AST ALT Alkaline Phosphatase Total Creatine Kinase CK-MB (CK-2) Troponin T C-Reactive Protein Serum Total Protein Total Protein Albumin Yqhgh-4-Lknzkpbes Sdjxj-8-Kxogegufi PEP Interpretation Triglycerides LDL Cholesterol Direct HDL Cholesterol Free T4 PTH Intact Urine WBC (Auto) Urine Creatinine Salicylates Acetaminophen Crossmatch 04/02/19 04/02/19 04/03/19 16:34 17:14 04:18 WBC RBC Hgb Hct MCV MCH MCHC RDW Plt Count Lymph % (Auto) [place] % (Auto) Eos % (Auto) Lymph # [place] # Eos # Seg Neutrophils % Seg Neuts % (Manual) Lymphocytes % (Manual) Monocytes % (Manual) Nucleated RBC % Seg Neutrophils # Seg Neutrophils # Man Lymphocytes # (Manual) Monocytes # (Manual) PT INR D-Dimer Heparin Anti-Xa Level POC ABG pH ABG pH POC ABG pCO2 POC ABG pO2 146 H ABG pO2 ABG HCO3 ABG O2 Saturation ABG Base Excess ABG Hemoglobin Oxyhemoglobin Sodium Potassium Chloride Carbon Dioxide BUN Creatinine Glucose POC Glucose 108 H Lactic Acid Calcium Ionized Calcium Phosphorus Magnesium Iron TIBC Ferritin Total Bilirubin Direct Bilirubin AST ALT Alkaline Phosphatase Total Creatine Kinase CK-MB (CK-2) Troponin T C-Reactive Protein Serum Total Protein Total Protein Albumin Qtxlr-9-Rttjwkvyc Bzxbm-3-Sqthkkhap PEP Interpretation Triglycerides LDL Cholesterol Direct HDL Cholesterol Free T4 PTH Intact Urine WBC (Auto) Urine Creatinine Salicylates Acetaminophen Crossmatch See Detail 04/03/19 04/03/19 04/03/19 04:25 08:30 18:24 WBC RBC 2.40 L Hgb 7.3 L Hct 21.9 L MCV MCH MCHC RDW Plt Count Lymph % (Auto) [place] % (Auto) 7.7 H Eos % (Auto) Lymph # 0.9 L [place] # Eos # Seg Neutrophils % 74.6 H Seg Neuts % (Manual) Lymphocytes % (Manual) Monocytes % (Manual) Nucleated RBC % Seg Neutrophils # Seg Neutrophils # Man Lymphocytes # (Manual) Monocytes # (Manual) PT INR D-Dimer Heparin Anti-Xa Level POC ABG pH ABG pH POC ABG pCO2 POC ABG pO2 ABG pO2 ABG HCO3 ABG O2 Saturation ABG Base Excess ABG Hemoglobin Oxyhemoglobin Sodium 136 L Potassium Chloride 97.0 L Carbon Dioxide BUN 58 H Creatinine 7.3 H Glucose POC Glucose 106 H Lactic Acid Calcium 7.5 L Ionized Calcium Phosphorus 5.80 H D Magnesium Iron TIBC Ferritin Total Bilirubin Direct Bilirubin AST ALT Alkaline Phosphatase Total Creatine Kinase CK-MB (CK-2) Troponin T C-Reactive Protein Serum Total Protein Total Protein Albumin Ddmcf-0-Odnpbxteq Xybet-9-Kjdidwcvd PEP Interpretation Triglycerides LDL Cholesterol Direct HDL Cholesterol Free T4 PTH Intact Urine WBC (Auto) Urine Creatinine Salicylates Acetaminophen Crossmatch 04/03/19 04/04/19 04/04/19 23:43 04:47 04:47 WBC RBC 2.72 L Hgb 8.3 L Hct 24.7 L MCV MCH MCHC RDW 15.6 H Plt Count Lymph % (Auto) [place] % (Auto) 10.1 H Eos % (Auto) Lymph # 0.8 L [place] # Eos # Seg Neutrophils % 71.4 H Seg Neuts % (Manual) Lymphocytes % (Manual) Monocytes % (Manual) Nucleated RBC % Seg Neutrophils # Seg Neutrophils # Man Lymphocytes # (Manual) Monocytes # (Manual) PT INR D-Dimer Heparin Anti-Xa Level POC ABG pH ABG pH POC ABG pCO2 POC ABG pO2 ABG pO2 123.8 H ABG HCO3 ABG O2 Saturation ABG Base Excess -3.0 L ABG Hemoglobin 7.9 L Oxyhemoglobin Sodium 134 L Potassium Chloride 97.9 L Carbon Dioxide BUN 64 H Creatinine 8.1 H Glucose POC Glucose Lactic Acid Calcium 7.2 L Ionized Calcium Phosphorus Magnesium Iron TIBC Ferritin Total Bilirubin Direct Bilirubin AST ALT Alkaline Phosphatase Total Creatine Kinase CK-MB (CK-2) Troponin T C-Reactive Protein Serum Total Protein Total Protein Albumin Gwyqy-4-Vbgnvaxvv Lqxfi-5-Uurlafsqb PEP Interpretation Triglycerides LDL Cholesterol Direct HDL Cholesterol Free T4 PTH Intact Urine WBC (Auto) Urine Creatinine Salicylates Acetaminophen Crossmatch 04/04/19 04/04/19 04/04/19 06:07 13:40 18:18 WBC RBC Hgb Hct MCV MCH MCHC RDW Plt Count Lymph % (Auto) [place] % (Auto) Eos % (Auto) Lymph # [place] # Eos # Seg Neutrophils % Seg Neuts % (Manual) Lymphocytes % (Manual) Monocytes % (Manual) Nucleated RBC % Seg Neutrophils # Seg Neutrophils # Man Lymphocytes # (Manual) Monocytes # (Manual) PT INR D-Dimer Heparin Anti-Xa Level POC ABG pH ABG pH POC ABG pCO2 POC ABG pO2 ABG pO2 95.9 H ABG HCO3 ABG O2 Saturation ABG Base Excess -3.0 L ABG Hemoglobin 8.5 L Oxyhemoglobin Sodium Potassium Chloride Carbon Dioxide BUN Creatinine Glucose POC Glucose 107 H 107 H Lactic Acid Calcium Ionized Calcium Phosphorus Magnesium Iron TIBC Ferritin Total Bilirubin Direct Bilirubin AST ALT Alkaline Phosphatase Total Creatine Kinase CK-MB (CK-2) Troponin T C-Reactive Protein Serum Total Protein Total Protein Albumin Lbigq-7-Kxzdcishd Dnnxn-3-Dfvyjevti PEP Interpretation Triglycerides LDL Cholesterol Direct HDL Cholesterol Free T4 PTH Intact Urine WBC (Auto) Urine Creatinine Salicylates Acetaminophen Crossmatch 04/04/19 04/05/19 04/05/19 21:22 04:09 04:09 WBC RBC 2.76 L Hgb 8.4 L Hct 25.4 L MCV MCH MCHC RDW 15.8 H Plt Count 133 L Lymph % (Auto) [place] % (Auto) 9.6 H Eos % (Auto) Lymph # 0.7 L [place] # Eos # Seg Neutrophils % 72.6 H Seg Neuts % (Manual) Lymphocytes % (Manual) Monocytes % (Manual) Nucleated RBC % Seg Neutrophils # Seg Neutrophils # Man Lymphocytes # (Manual) Monocytes # (Manual) PT INR D-Dimer Heparin Anti-Xa Level POC ABG pH ABG pH POC ABG pCO2 47.2 H POC ABG pO2 137 H ABG pO2 ABG HCO3 ABG O2 Saturation ABG Base Excess ABG Hemoglobin Oxyhemoglobin Sodium 136 L Potassium Chloride Carbon Dioxide BUN 46 H Creatinine 6.7 H Glucose POC Glucose Lactic Acid Calcium 7.7 L Ionized Calcium Phosphorus Magnesium Iron TIBC Ferritin Total Bilirubin Direct Bilirubin AST ALT Alkaline Phosphatase Total Creatine Kinase CK-MB (CK-2) Troponin T C-Reactive Protein Serum Total Protein Total Protein Albumin Znxru-2-Uwczjydva Wjtlo-7-Atfcknmyo PEP Interpretation Triglycerides LDL Cholesterol Direct HDL Cholesterol Free T4 PTH Intact Urine WBC (Auto) Urine Creatinine Salicylates Acetaminophen Crossmatch 04/05/19 04/05/19 04/05/19 05:28 06:14 16:50 WBC RBC Hgb Hct MCV MCH MCHC RDW Plt Count Lymph % (Auto) [place] % (Auto) Eos % (Auto) Lymph # [place] # Eos # Seg Neutrophils % Seg Neuts % (Manual) Lymphocytes % (Manual) Monocytes % (Manual) Nucleated RBC % Seg Neutrophils # Seg Neutrophils # Man Lymphocytes # (Manual) Monocytes # (Manual) PT INR D-Dimer Heparin Anti-Xa Level POC ABG pH ABG pH POC ABG pCO2 POC ABG pO2 67 L ABG pO2 ABG HCO3 ABG O2 Saturation ABG Base Excess ABG Hemoglobin Oxyhemoglobin Sodium Potassium Chloride Carbon Dioxide BUN Creatinine Glucose POC Glucose 108 H Lactic Acid Calcium Ionized Calcium Phosphorus Magnesium Iron TIBC Ferritin Total Bilirubin Direct Bilirubin AST ALT Alkaline Phosphatase Total Creatine Kinase CK-MB (CK-2) Troponin T C-Reactive Protein Serum Total Protein Total Protein Albumin Sltlg-4-Zatyezuez Dvqps-8-Ctibjlucv PEP Interpretation Triglycerides LDL Cholesterol Direct HDL Cholesterol Free T4 PTH Intact Urine WBC (Auto) 40.0 H Urine Creatinine Salicylates Acetaminophen Crossmatch 04/05/19 04/06/19 04/06/19 17:22 00:13 04:44 WBC RBC 2.48 L Hgb 7.5 L Hct 22.9 L MCV MCH MCHC RDW 16.0 H Plt Count 107 L Lymph % (Auto) [place] % (Auto) 10.7 H Eos % (Auto) Lymph # 1.0 L [place] # Eos # Seg Neutrophils % Seg Neuts % (Manual) Lymphocytes % (Manual) Monocytes % (Manual) Nucleated RBC % Seg Neutrophils # Seg Neutrophils # Man Lymphocytes # (Manual) Monocytes # (Manual) PT INR D-Dimer Heparin Anti-Xa Level POC ABG pH ABG pH POC ABG pCO2 POC ABG pO2 ABG pO2 ABG HCO3 ABG O2 Saturation ABG Base Excess ABG Hemoglobin Oxyhemoglobin Sodium Potassium Chloride Carbon Dioxide BUN Creatinine Glucose POC Glucose 118 H 138 H Lactic Acid Calcium Ionized Calcium Phosphorus Magnesium Iron TIBC Ferritin Total Bilirubin Direct Bilirubin AST ALT Alkaline Phosphatase Total Creatine Kinase CK-MB (CK-2) Troponin T C-Reactive Protein Serum Total Protein Total Protein Albumin Vdmwz-2-Qeyrgtwym Utrfw-8-Gjflzwsuo PEP Interpretation Triglycerides LDL Cholesterol Direct HDL Cholesterol Free T4 PTH Intact Urine WBC (Auto) Urine Creatinine Salicylates Acetaminophen Crossmatch 04/06/19 04/06/19 04/06/19 04:44 05:20 05:23 WBC RBC Hgb Hct MCV MCH MCHC RDW Plt Count Lymph % (Auto) [place] % (Auto) Eos % (Auto) Lymph # [place] # Eos # Seg Neutrophils % Seg Neuts % (Manual) Lymphocytes % (Manual) Monocytes % (Manual) Nucleated RBC % Seg Neutrophils # Seg Neutrophils # Man Lymphocytes # (Manual) Monocytes # (Manual) PT INR D-Dimer Heparin Anti-Xa Level POC ABG pH ABG pH POC ABG pCO2 POC ABG pO2 ABG pO2 104.0 H ABG HCO3 ABG O2 Saturation ABG Base Excess -2.1 L ABG Hemoglobin 7.3 L Oxyhemoglobin Sodium Potassium Chloride Carbon Dioxide BUN 64 H Creatinine 8.2 H Glucose 103 H POC Glucose 118 H Lactic Acid Calcium 7.3 L Ionized Calcium Phosphorus Magnesium Iron TIBC Ferritin Total Bilirubin Direct Bilirubin AST ALT Alkaline Phosphatase Total Creatine Kinase CK-MB (CK-2) Troponin T C-Reactive Protein Serum Total Protein Total Protein Albumin Znhif-6-Zoyolchuz Hhdpg-3-Ysvxmbhot PEP Interpretation Triglycerides LDL Cholesterol Direct HDL Cholesterol Free T4 PTH Intact Urine WBC (Auto) Urine Creatinine Salicylates Acetaminophen Crossmatch 04/06/19 04/07/19 04/07/19 12:02 05:40 05:40 WBC RBC 2.59 L Hgb 7.9 L Hct 23.8 L MCV MCH MCHC RDW 15.8 H Plt Count 89 L Lymph % (Auto) [place] % (Auto) 10.3 H Eos % (Auto) Lymph # 1.1 L [place] # Eos # Seg Neutrophils % Seg Neuts % (Manual) Lymphocytes % (Manual) Monocytes % (Manual) Nucleated RBC % Seg Neutrophils # Seg Neutrophils # Man Lymphocytes # (Manual) Monocytes # (Manual) PT INR D-Dimer Heparin Anti-Xa Level POC ABG pH ABG pH POC ABG pCO2 POC ABG pO2 ABG pO2 ABG HCO3 ABG O2 Saturation ABG Base Excess ABG Hemoglobin Oxyhemoglobin Sodium 136 L Potassium 3.5 L Chloride Carbon Dioxide BUN 46 H Creatinine 6.2 H Glucose POC Glucose 108 H Lactic Acid Calcium 7.9 L Ionized Calcium Phosphorus Magnesium Iron TIBC Ferritin Total Bilirubin Direct Bilirubin AST ALT Alkaline Phosphatase Total Creatine Kinase CK-MB (CK-2) Troponin T C-Reactive Protein Serum Total Protein Total Protein Albumin Vrykx-8-Qyzbcbdnx Dqmvy-7-Fqbrpkrgt PEP Interpretation Triglycerides LDL Cholesterol Direct HDL Cholesterol Free T4 PTH Intact Urine WBC (Auto) Urine Creatinine Salicylates Acetaminophen Crossmatch 04/07/19 04/09/19 04/09/19 12:57 04:28 04:28 WBC RBC 2.85 L Hgb 8.7 L Hct 26.2 L MCV MCH MCHC RDW 15.6 H Plt Count Lymph % (Auto) [place] % (Auto) 10.4 H Eos % (Auto) Lymph # 1.0 L [place] # Eos # Seg Neutrophils % 73.3 H Seg Neuts % (Manual) Lymphocytes % (Manual) Monocytes % (Manual) Nucleated RBC % Seg Neutrophils # Seg Neutrophils # Man Lymphocytes # (Manual) Monocytes # (Manual) PT INR D-Dimer Heparin Anti-Xa Level POC ABG pH ABG pH POC ABG pCO2 POC ABG pO2 107 H ABG pO2 ABG HCO3 ABG O2 Saturation ABG Base Excess ABG Hemoglobin Oxyhemoglobin Sodium Potassium 3.5 L Chloride 97.8 L Carbon Dioxide BUN 62 H Creatinine 8.1 H Glucose POC Glucose Lactic Acid Calcium 8.2 L Ionized Calcium Phosphorus 5.10 H Magnesium Iron TIBC Ferritin Total Bilirubin Direct Bilirubin AST ALT Alkaline Phosphatase Total Creatine Kinase CK-MB (CK-2) Troponin T C-Reactive Protein Serum Total Protein Total Protein Albumin Vvjmr-6-Trsszdoiq Dbvgn-7-Pwpjszfdt PEP Interpretation Triglycerides LDL Cholesterol Direct HDL Cholesterol Free T4 PTH Intact Urine WBC (Auto) Urine Creatinine Salicylates Acetaminophen Crossmatch 04/10/19 04/11/19 04/11/19 18:15 00:25 04:16 WBC 11.5 H RBC 2.91 L Hgb 8.9 L Hct 27.6 L MCV 95 H MCH MCHC RDW 17.5 H Plt Count Lymph % (Auto) [place] % (Auto) Eos % (Auto) Lymph # [place] # Eos # Seg Neutrophils % Seg Neuts % (Manual) 71.0 H Lymphocytes % (Manual) Monocytes % (Manual) 8.0 H Nucleated RBC % Seg Neutrophils # Seg Neutrophils # Man 8.2 H Lymphocytes # (Manual) Monocytes # (Manual) 0.9 H PT INR D-Dimer Heparin Anti-Xa Level POC ABG pH ABG pH POC ABG pCO2 POC ABG pO2 ABG pO2 ABG HCO3 ABG O2 Saturation ABG Base Excess ABG Hemoglobin Oxyhemoglobin Sodium Potassium Chloride Carbon Dioxide BUN Creatinine Glucose POC Glucose 109 H 114 H Lactic Acid Calcium Ionized Calcium Phosphorus Magnesium Iron TIBC Ferritin Total Bilirubin Direct Bilirubin AST ALT Alkaline Phosphatase Total Creatine Kinase CK-MB (CK-2) Troponin T C-Reactive Protein Serum Total Protein Total Protein Albumin Jxzkm-6-Qdxoyxpbc Jxqri-5-Bxxwxqvll PEP Interpretation Triglycerides LDL Cholesterol Direct HDL Cholesterol Free T4 PTH Intact Urine WBC (Auto) Urine Creatinine Salicylates Acetaminophen Crossmatch 04/11/19 04/11/19 04/11/19 06:47 09:21 12:15 WBC RBC Hgb Hct MCV MCH MCHC RDW Plt Count Lymph % (Auto) [place] % (Auto) Eos % (Auto) Lymph # [place] # Eos # Seg Neutrophils % Seg Neuts % (Manual) Lymphocytes % (Manual) Monocytes % (Manual) Nucleated RBC % Seg Neutrophils # Seg Neutrophils # Man Lymphocytes # (Manual) Monocytes # (Manual) PT INR D-Dimer Heparin Anti-Xa Level POC ABG pH ABG pH POC ABG pCO2 POC ABG pO2 ABG pO2 ABG HCO3 ABG O2 Saturation ABG Base Excess ABG Hemoglobin Oxyhemoglobin Sodium Potassium 3.5 L Chloride Carbon Dioxide BUN 45 H Creatinine 6.0 H Glucose 113 H POC Glucose 106 H 109 H Lactic Acid Calcium Ionized Calcium Phosphorus Magnesium Iron TIBC Ferritin Total Bilirubin Direct Bilirubin AST ALT Alkaline Phosphatase Total Creatine Kinase CK-MB (CK-2) Troponin T C-Reactive Protein Serum Total Protein Total Protein Albumin Pnhac-0-Mmuiwcmhb Czqcn-2-Lbvzsmxfs PEP Interpretation Triglycerides LDL Cholesterol Direct HDL Cholesterol Free T4 PTH Intact Urine WBC (Auto) Urine Creatinine Salicylates Acetaminophen Crossmatch 04/11/19 04/12/19 04/12/19 18:42 12:13 23:52 WBC RBC Hgb Hct MCV MCH MCHC RDW Plt Count Lymph % (Auto) [place] % (Auto) Eos % (Auto) Lymph # [place] # Eos # Seg Neutrophils % Seg Neuts % (Manual) Lymphocytes % (Manual) Monocytes % (Manual) Nucleated RBC % Seg Neutrophils # Seg Neutrophils # Man Lymphocytes # (Manual) Monocytes # (Manual) PT INR D-Dimer Heparin Anti-Xa Level POC ABG pH ABG pH POC ABG pCO2 POC ABG pO2 ABG pO2 ABG HCO3 ABG O2 Saturation ABG Base Excess ABG Hemoglobin Oxyhemoglobin Sodium Potassium Chloride Carbon Dioxide BUN Creatinine Glucose POC Glucose 107 H 115 H 124 H Lactic Acid Calcium Ionized Calcium Phosphorus Magnesium Iron TIBC Ferritin Total Bilirubin Direct Bilirubin AST ALT Alkaline Phosphatase Total Creatine Kinase CK-MB (CK-2) Troponin T C-Reactive Protein Serum Total Protein Total Protein Albumin Wooqg-8-Pmftcsncd Oirdt-6-Uitnfolhn PEP Interpretation Triglycerides LDL Cholesterol Direct HDL Cholesterol Free T4 PTH Intact Urine WBC (Auto) Urine Creatinine Salicylates Acetaminophen Crossmatch 04/13/19 04/13/19 04/13/19 05:00 05:00 05:47 WBC 11.7 H RBC 2.97 L Hgb 8.8 L Hct 27.3 L MCV MCH MCHC RDW 16.1 H Plt Count Lymph % (Auto) 9.5 L [place] % (Auto) 9.9 H Eos % (Auto) Lymph # 1.1 L [place] # 1.2 H Eos # Seg Neutrophils % 78.6 H Seg Neuts % (Manual) Lymphocytes % (Manual) Monocytes % (Manual) Nucleated RBC % Seg Neutrophils # 9.2 H Seg Neutrophils # Man Lymphocytes # (Manual) Monocytes # (Manual) PT INR D-Dimer Heparin Anti-Xa Level POC ABG pH ABG pH POC ABG pCO2 POC ABG pO2 ABG pO2 ABG HCO3 ABG O2 Saturation ABG Base Excess ABG Hemoglobin Oxyhemoglobin Sodium Potassium 3.5 L Chloride Carbon Dioxide BUN 42 H Creatinine 4.6 H Glucose 106 H POC Glucose 107 H Lactic Acid Calcium 10.6 H D Ionized Calcium Phosphorus 5.90 H Magnesium Iron TIBC Ferritin Total Bilirubin Direct Bilirubin AST ALT Alkaline Phosphatase Total Creatine Kinase CK-MB (CK-2) Troponin T C-Reactive Protein Serum Total Protein Total Protein 5.8 L Albumin 2.5 L Wjuua-7-Swypgxoxz Jcdko-0-Jjyikybzh PEP Interpretation Triglycerides LDL Cholesterol Direct HDL Cholesterol Free T4 PTH Intact Urine WBC (Auto) Urine Creatinine Salicylates Acetaminophen Crossmatch 04/13/19 04/14/19 04/14/19 17:32 00:00 03:55 WBC RBC Hgb Hct MCV MCH MCHC RDW Plt Count Lymph % (Auto) [place] % (Auto) Eos % (Auto) Lymph # [place] # Eos # Seg Neutrophils % Seg Neuts % (Manual) Lymphocytes % (Manual) Monocytes % (Manual) Nucleated RBC % Seg Neutrophils # Seg Neutrophils # Man Lymphocytes # (Manual) Monocytes # (Manual) PT INR D-Dimer Heparin Anti-Xa Level POC ABG pH ABG pH POC ABG pCO2 POC ABG pO2 ABG pO2 ABG HCO3 ABG O2 Saturation ABG Base Excess ABG Hemoglobin Oxyhemoglobin Sodium Potassium 3.0 L Chloride Carbon Dioxide BUN 30 H Creatinine 3.1 H Glucose POC Glucose 112 H 120 H Lactic Acid Calcium 10.8 H Ionized Calcium Phosphorus Magnesium Iron TIBC Ferritin Total Bilirubin Direct Bilirubin AST ALT Alkaline Phosphatase Total Creatine Kinase CK-MB (CK-2) Troponin T C-Reactive Protein Serum Total Protein Total Protein Albumin Dtrcj-9-Rieiqxzsv Yvczb-2-Fcvwpuxrn PEP Interpretation Triglycerides LDL Cholesterol Direct HDL Cholesterol Free T4 PTH Intact Urine WBC (Auto) Urine Creatinine Salicylates Acetaminophen Crossmatch 04/14/19 04/14/19 04/15/19 11:56 23:28 05:11 WBC 13.0 H RBC 2.93 L Hgb 8.6 L Hct 26.5 L MCV MCH MCHC RDW 16.5 H Plt Count Lymph % (Auto) 12.2 L [place] % (Auto) 9.1 H Eos % (Auto) Lymph # [place] # 1.2 H Eos # Seg Neutrophils % 77.6 H Seg Neuts % (Manual) Lymphocytes % (Manual) Monocytes % (Manual) Nucleated RBC % Seg Neutrophils # 10.1 H Seg Neutrophils # Man Lymphocytes # (Manual) Monocytes # (Manual) PT INR D-Dimer Heparin Anti-Xa Level POC ABG pH ABG pH POC ABG pCO2 POC ABG pO2 ABG pO2 ABG HCO3 ABG O2 Saturation ABG Base Excess ABG Hemoglobin Oxyhemoglobin Sodium Potassium Chloride Carbon Dioxide BUN Creatinine Glucose POC Glucose 109 H 112 H Lactic Acid Calcium Ionized Calcium Phosphorus Magnesium Iron TIBC Ferritin Total Bilirubin Direct Bilirubin AST ALT Alkaline Phosphatase Total Creatine Kinase CK-MB (CK-2) Troponin T C-Reactive Protein Serum Total Protein Total Protein Albumin Cyhhb-7-Zzpsqveqs Hpsni-5-Cfkvsxqap PEP Interpretation Triglycerides LDL Cholesterol Direct HDL Cholesterol Free T4 PTH Intact Urine WBC (Auto) Urine Creatinine Salicylates Acetaminophen Crossmatch 04/15/19 04/15/19 04/15/19 05:11 05:31 18:03 WBC RBC Hgb Hct MCV MCH MCHC RDW Plt Count Lymph % (Auto) [place] % (Auto) Eos % (Auto) Lymph # [place] # Eos # Seg Neutrophils % Seg Neuts % (Manual) Lymphocytes % (Manual) Monocytes % (Manual) Nucleated RBC % Seg Neutrophils # Seg Neutrophils # Man Lymphocytes # (Manual) Monocytes # (Manual) PT INR D-Dimer Heparin Anti-Xa Level POC ABG pH ABG pH POC ABG pCO2 POC ABG pO2 ABG pO2 ABG HCO3 ABG O2 Saturation ABG Base Excess ABG Hemoglobin Oxyhemoglobin Sodium Potassium 3.2 L Chloride Carbon Dioxide BUN 44 H Creatinine 3.6 H Glucose 106 H POC Glucose 110 H 121 H Lactic Acid Calcium 12.0 H Ionized Calcium Phosphorus 5.00 H Magnesium Iron TIBC Ferritin Total Bilirubin Direct Bilirubin AST ALT Alkaline Phosphatase Total Creatine Kinase CK-MB (CK-2) Troponin T C-Reactive Protein Serum Total Protein Total Protein Albumin Ynwig-2-Kydhhtkjj Qgalm-1-Qddfmbevh PEP Interpretation Triglycerides LDL Cholesterol Direct HDL Cholesterol Free T4 PTH Intact Urine WBC (Auto) Urine Creatinine Salicylates Acetaminophen Crossmatch 04/16/19 04/16/19 04/17/19 05:07 05:07 04:15 WBC 12.6 H RBC 3.12 L Hgb 9.0 L Hct 28.2 L MCV MCH MCHC RDW 16.6 H Plt Count Lymph % (Auto) 10.3 L [place] % (Auto) 9.8 H Eos % (Auto) Lymph # [place] # 1.2 H Eos # Seg Neutrophils % 78.2 H Seg Neuts % (Manual) Lymphocytes % (Manual) Monocytes % (Manual) Nucleated RBC % Seg Neutrophils # 9.9 H Seg Neutrophils # Man Lymphocytes # (Manual) Monocytes # (Manual) PT INR D-Dimer Heparin Anti-Xa Level POC ABG pH ABG pH POC ABG pCO2 POC ABG pO2 ABG pO2 ABG HCO3 ABG O2 Saturation ABG Base Excess ABG Hemoglobin Oxyhemoglobin Sodium 147 H 150 H Potassium 3.5 L 3.1 L Chloride Carbon Dioxide 32 H BUN 54 H 65 H Creatinine 3.8 H 4.0 H Glucose 102 H 107 H POC Glucose Lactic Acid Calcium 11.7 H 12.0 H Ionized Calcium Phosphorus 5.40 H Magnesium Iron TIBC Ferritin Total Bilirubin Direct Bilirubin AST ALT Alkaline Phosphatase Total Creatine Kinase CK-MB (CK-2) Troponin T C-Reactive Protein 7.10 H Serum Total Protein Total Protein Albumin Uqbzx-6-Rtkjmjjgm Zexqg-3-Gjjhwvcfa PEP Interpretation Triglycerides LDL Cholesterol Direct HDL Cholesterol Free T4 PTH Intact Urine WBC (Auto) Urine Creatinine Salicylates Acetaminophen Crossmatch 04/17/19 04/17/19 04/17/19 04:15 06:05 12:49 WBC 15.8 H RBC 3.32 L Hgb 9.5 L Hct 29.9 L MCV MCH MCHC RDW 16.9 H Plt Count Lymph % (Auto) 12.6 L [place] % (Auto) 11.1 H Eos % (Auto) Lymph # [place] # 1.7 H Eos # Seg Neutrophils % 74.7 H Seg Neuts % (Manual) Lymphocytes % (Manual) Monocytes % (Manual) Nucleated RBC % Seg Neutrophils # 11.8 H Seg Neutrophils # Man Lymphocytes # (Manual) Monocytes # (Manual) PT INR D-Dimer Heparin Anti-Xa Level POC ABG pH ABG pH POC ABG pCO2 POC ABG pO2 ABG pO2 ABG HCO3 ABG O2 Saturation ABG Base Excess ABG Hemoglobin Oxyhemoglobin Sodium Potassium Chloride Carbon Dioxide BUN Creatinine Glucose POC Glucose 111 H 108 H Lactic Acid Calcium Ionized Calcium Phosphorus Magnesium Iron TIBC Ferritin Total Bilirubin Direct Bilirubin AST ALT Alkaline Phosphatase Total Creatine Kinase CK-MB (CK-2) Troponin T C-Reactive Protein Serum Total Protein Total Protein Albumin Tzsqg-5-Cqawjskuh Jygtd-3-Joxsjvuoj PEP Interpretation Triglycerides LDL Cholesterol Direct HDL Cholesterol Free T4 PTH Intact Urine WBC (Auto) Urine Creatinine Salicylates Acetaminophen Crossmatch 04/18/19 04/18/19 04/18/19 00:23 04:41 04:41 WBC 19.4 H RBC 3.03 L Hgb 8.6 L Hct 27.5 L MCV MCH MCHC 31 L RDW 16.9 H Plt Count Lymph % (Auto) [place] % (Auto) Eos % (Auto) Lymph # [place] # Eos # Seg Neutrophils % Seg Neuts % (Manual) Lymphocytes % (Manual) Monocytes % (Manual) Nucleated RBC % Seg Neutrophils # Seg Neutrophils # Man Lymphocytes # (Manual) Monocytes # (Manual) PT INR D-Dimer Heparin Anti-Xa Level POC ABG pH ABG pH POC ABG pCO2 POC ABG pO2 ABG pO2 ABG HCO3 ABG O2 Saturation ABG Base Excess ABG Hemoglobin Oxyhemoglobin Sodium 152 H Potassium 3.0 L Chloride Carbon Dioxide BUN 80 H Creatinine 4.3 H Glucose 103 H POC Glucose 115 H Lactic Acid Calcium 11.4 H Ionized Calcium Phosphorus Magnesium Iron TIBC Ferritin Total Bilirubin Direct Bilirubin AST ALT Alkaline Phosphatase Total Creatine Kinase CK-MB (CK-2) Troponin T C-Reactive Protein Serum Total Protein Total Protein Albumin Dphzc-3-Mqhvctabd Fgywo-5-Htlqmjxfl PEP Interpretation Triglycerides LDL Cholesterol Direct HDL Cholesterol Free T4 PTH Intact Urine WBC (Auto) Urine Creatinine Salicylates Acetaminophen Crossmatch 04/18/19 04/18/19 04/18/19 06:17 12:16 18:10 WBC RBC Hgb Hct MCV MCH MCHC RDW Plt Count Lymph % (Auto) [place] % (Auto) Eos % (Auto) Lymph # [place] # Eos # Seg Neutrophils % Seg Neuts % (Manual) Lymphocytes % (Manual) Monocytes % (Manual) Nucleated RBC % Seg Neutrophils # Seg Neutrophils # Man Lymphocytes # (Manual) Monocytes # (Manual) PT INR D-Dimer Heparin Anti-Xa Level POC ABG pH ABG pH POC ABG pCO2 POC ABG pO2 ABG pO2 ABG HCO3 ABG O2 Saturation ABG Base Excess ABG Hemoglobin Oxyhemoglobin Sodium Potassium Chloride Carbon Dioxide BUN Creatinine Glucose POC Glucose 124 H 119 H 111 H Lactic Acid Calcium Ionized Calcium Phosphorus Magnesium Iron TIBC Ferritin Total Bilirubin Direct Bilirubin AST ALT Alkaline Phosphatase Total Creatine Kinase CK-MB (CK-2) Troponin T C-Reactive Protein Serum Total Protein Total Protein Albumin Zwbjp-5-Musxyzhcb Httsw-3-Dilpraumn PEP Interpretation Triglycerides LDL Cholesterol Direct HDL Cholesterol Free T4 PTH Intact Urine WBC (Auto) Urine Creatinine Salicylates Acetaminophen Crossmatch 04/19/19 04/19/19 04/20/19 03:49 05:27 09:09 WBC RBC Hgb Hct MCV MCH MCHC RDW Plt Count Lymph % (Auto) [place] % (Auto) Eos % (Auto) Lymph # [place] # Eos # Seg Neutrophils % Seg Neuts % (Manual) Lymphocytes % (Manual) Monocytes % (Manual) Nucleated RBC % Seg Neutrophils # Seg Neutrophils # Man Lymphocytes # (Manual) Monocytes # (Manual) PT INR D-Dimer Heparin Anti-Xa Level POC ABG pH ABG pH POC ABG pCO2 POC ABG pO2 ABG pO2 ABG HCO3 ABG O2 Saturation ABG Base Excess ABG Hemoglobin Oxyhemoglobin Sodium 147 H 150 H Potassium 3.3 L Chloride 108.9 H Carbon Dioxide BUN 45 H 70 H Creatinine 2.9 H 4.1 H Glucose 105 H POC Glucose 124 H Lactic Acid Calcium 10.6 H 11.6 H Ionized Calcium Phosphorus Magnesium Iron TIBC Ferritin Total Bilirubin Direct Bilirubin AST ALT Alkaline Phosphatase Total Creatine Kinase CK-MB (CK-2) Troponin T C-Reactive Protein Serum Total Protein Total Protein Albumin Rrdhd-2-Cavwgjgqg Uauup-1-Jmbvnswkp PEP Interpretation Triglycerides LDL Cholesterol Direct HDL Cholesterol Free T4 PTH Intact Urine WBC (Auto) Urine Creatinine Salicylates Acetaminophen Crossmatch 04/20/19 04/20/19 04/21/19 12:29 18:45 01:34 WBC RBC Hgb Hct MCV MCH MCHC RDW Plt Count Lymph % (Auto) [place] % (Auto) Eos % (Auto) Lymph # [place] # Eos # Seg Neutrophils % Seg Neuts % (Manual) Lymphocytes % (Manual) Monocytes % (Manual) Nucleated RBC % Seg Neutrophils # Seg Neutrophils # Man Lymphocytes # (Manual) Monocytes # (Manual) PT INR D-Dimer Heparin Anti-Xa Level POC ABG pH ABG pH POC ABG pCO2 POC ABG pO2 ABG pO2 ABG HCO3 ABG O2 Saturation ABG Base Excess ABG Hemoglobin Oxyhemoglobin Sodium Potassium Chloride Carbon Dioxide BUN 40 H Creatinine 2.6 H Glucose 104 H POC Glucose 131 H 134 H Lactic Acid Calcium 11.0 H Ionized Calcium Phosphorus Magnesium Iron TIBC Ferritin Total Bilirubin Direct Bilirubin AST ALT Alkaline Phosphatase Total Creatine Kinase CK-MB (CK-2) Troponin T C-Reactive Protein Serum Total Protein Total Protein Albumin Umdqb-0-Ldbyenzfz Kgqgf-3-Gxkhroycv PEP Interpretation Triglycerides LDL Cholesterol Direct HDL Cholesterol Free T4 PTH Intact Urine WBC (Auto) Urine Creatinine Salicylates Acetaminophen Crossmatch 04/21/19 04/21/19 04/22/19 04:22 04:22 04:24 WBC 14.2 H 14.3 H RBC 3.02 L 3.57 L Hgb 8.7 L 10.1 L Hct 27.2 L 32.1 L MCV MCH MCHC RDW 16.7 H 17.2 H Plt Count Lymph % (Auto) [place] % (Auto) Eos % (Auto) Lymph # [place] # Eos # Seg Neutrophils % Seg Neuts % (Manual) Lymphocytes % (Manual) Monocytes % (Manual) Nucleated RBC % Seg Neutrophils # Seg Neutrophils # Man Lymphocytes # (Manual) Monocytes # (Manual) PT INR D-Dimer Heparin Anti-Xa Level POC ABG pH ABG pH POC ABG pCO2 POC ABG pO2 ABG pO2 ABG HCO3 ABG O2 Saturation ABG Base Excess ABG Hemoglobin Oxyhemoglobin Sodium Potassium Chloride Carbon Dioxide BUN Creatinine Glucose POC Glucose Lactic Acid Calcium Ionized Calcium Phosphorus Magnesium Iron TIBC Ferritin Total Bilirubin Direct Bilirubin AST ALT Alkaline Phosphatase Total Creatine Kinase CK-MB (CK-2) Troponin T C-Reactive Protein Serum Total Protein 5.7 L Total Protein Albumin 2.3 L Ekzcx-5-Etlhhrtzi 0.5 H Jntms-9-Ytkmdtyyg 1.0 H PEP Interpretation see below H Triglycerides LDL Cholesterol Direct HDL Cholesterol Free T4 PTH Intact Urine WBC (Auto) Urine Creatinine Salicylates Acetaminophen Crossmatch 04/22/19 04/22/19 04/22/19 04:24 06:37 11:57 WBC RBC Hgb Hct MCV MCH MCHC RDW Plt Count Lymph % (Auto) [place] % (Auto) Eos % (Auto) Lymph # [place] # Eos # Seg Neutrophils % Seg Neuts % (Manual) Lymphocytes % (Manual) Monocytes % (Manual) Nucleated RBC % Seg Neutrophils # Seg Neutrophils # Man Lymphocytes # (Manual) Monocytes # (Manual) PT INR D-Dimer Heparin Anti-Xa Level POC ABG pH ABG pH POC ABG pCO2 POC ABG pO2 ABG pO2 ABG HCO3 ABG O2 Saturation ABG Base Excess ABG Hemoglobin Oxyhemoglobin Sodium Potassium Chloride Carbon Dioxide BUN 54 H Creatinine 3.5 H Glucose POC Glucose 113 H 110 H Lactic Acid Calcium 11.4 H Ionized Calcium Phosphorus Magnesium Iron TIBC Ferritin Total Bilirubin Direct Bilirubin AST ALT Alkaline Phosphatase Total Creatine Kinase CK-MB (CK-2) Troponin T C-Reactive Protein Serum Total Protein Total Protein Albumin Mpxpc-7-Lzhfswyag Cupmo-8-Eraqkpmcw PEP Interpretation Triglycerides LDL Cholesterol Direct HDL Cholesterol Free T4 PTH Intact Urine WBC (Auto) Urine Creatinine Salicylates Acetaminophen Crossmatch 04/22/19 04/23/19 04/23/19 18:33 04:06 04:06 WBC 16.1 H RBC 3.36 L Hgb 9.8 L Hct 30.8 L MCV MCH MCHC RDW 17.7 H Plt Count Lymph % (Auto) 9.9 L [place] % (Auto) Eos % (Auto) Lymph # [place] # Eos # Seg Neutrophils % 84.2 H Seg Neuts % (Manual) Lymphocytes % (Manual) Monocytes % (Manual) Nucleated RBC % Seg Neutrophils # 13.6 H Seg Neutrophils # Man Lymphocytes # (Manual) Monocytes # (Manual) PT INR D-Dimer Heparin Anti-Xa Level POC ABG pH ABG pH POC ABG pCO2 POC ABG pO2 ABG pO2 ABG HCO3 ABG O2 Saturation ABG Base Excess ABG Hemoglobin Oxyhemoglobin Sodium Potassium Chloride Carbon Dioxide BUN 59 H Creatinine 3.8 H Glucose POC Glucose 120 H Lactic Acid Calcium 12.3 H* Ionized Calcium Phosphorus 5.70 H Magnesium Iron TIBC Ferritin Total Bilirubin Direct Bilirubin AST ALT Alkaline Phosphatase Total Creatine Kinase CK-MB (CK-2) Troponin T C-Reactive Protein Serum Total Protein Total Protein Albumin 3.2 L Ijwbe-6-Nfnrdgbna Jcwct-5-Vjzihovas PEP Interpretation Triglycerides LDL Cholesterol Direct HDL Cholesterol Free T4 PTH Intact Urine WBC (Auto) Urine Creatinine Salicylates Acetaminophen Crossmatch 04/23/19 04/24/19 04/24/19 18:06 04:12 04:12 WBC 18.0 H RBC 3.46 L Hgb 9.8 L Hct 31.2 L MCV MCH MCHC 31 L RDW 17.5 H Plt Count Lymph % (Auto) 11.1 L [place] % (Auto) Eos % (Auto) Lymph # [place] # Eos # Seg Neutrophils % 81.9 H Seg Neuts % (Manual) Lymphocytes % (Manual) Monocytes % (Manual) Nucleated RBC % Seg Neutrophils # 14.7 H Seg Neutrophils # Man Lymphocytes # (Manual) Monocytes # (Manual) PT INR D-Dimer Heparin Anti-Xa Level POC ABG pH ABG pH POC ABG pCO2 POC ABG pO2 ABG pO2 ABG HCO3 ABG O2 Saturation ABG Base Excess ABG Hemoglobin Oxyhemoglobin Sodium Potassium Chloride Carbon Dioxide BUN 56 H Creatinine 3.6 H Glucose POC Glucose 124 H Lactic Acid Calcium 12.6 H* Ionized Calcium Phosphorus Magnesium Iron TIBC Ferritin Total Bilirubin Direct Bilirubin AST ALT Alkaline Phosphatase Total Creatine Kinase CK-MB (CK-2) Troponin T C-Reactive Protein Serum Total Protein Total Protein Albumin 3.2 L Ealae-0-Xoifmstvf Gbjyn-2-Anqfpwjir PEP Interpretation Triglycerides LDL Cholesterol Direct HDL Cholesterol Free T4 PTH Intact Urine WBC (Auto) Urine Creatinine Salicylates Acetaminophen Crossmatch 04/24/19 04/24/19 04/25/19 06:21 11:47 05:58 WBC 18.0 H RBC 2.98 L Hgb 8.3 L Hct 26.5 L MCV MCH MCHC 31 L RDW 17.9 H Plt Count Lymph % (Auto) 10.1 L [place] % (Auto) Eos % (Auto) Lymph # [place] # 0.9 H Eos # Seg Neutrophils % 82.8 H Seg Neuts % (Manual) Lymphocytes % (Manual) Monocytes % (Manual) Nucleated RBC % Seg Neutrophils # 15.0 H Seg Neutrophils # Man Lymphocytes # (Manual) Monocytes # (Manual) PT INR D-Dimer Heparin Anti-Xa Level POC ABG pH ABG pH POC ABG pCO2 POC ABG pO2 ABG pO2 ABG HCO3 ABG O2 Saturation ABG Base Excess ABG Hemoglobin Oxyhemoglobin Sodium Potassium Chloride Carbon Dioxide BUN Creatinine Glucose POC Glucose 132 H 106 H Lactic Acid Calcium Ionized Calcium Phosphorus Magnesium Iron TIBC Ferritin Total Bilirubin Direct Bilirubin AST ALT Alkaline Phosphatase Total Creatine Kinase CK-MB (CK-2) Troponin T C-Reactive Protein Serum Total Protein Total Protein Albumin Gskxw-1-Qlsegdcpi Nndlk-0-Dtihlqcmc PEP Interpretation Triglycerides LDL Cholesterol Direct HDL Cholesterol Free T4 PTH Intact Urine WBC (Auto) Urine Creatinine Salicylates Acetaminophen Crossmatch 04/25/19 04/26/19 04/26/19 05:58 05:57 06:08 WBC RBC Hgb Hct MCV MCH MCHC RDW Plt Count Lymph % (Auto) [place] % (Auto) Eos % (Auto) Lymph # [place] # Eos # Seg Neutrophils % Seg Neuts % (Manual) Lymphocytes % (Manual) Monocytes % (Manual) Nucleated RBC % Seg Neutrophils # Seg Neutrophils # Man Lymphocytes # (Manual) Monocytes # (Manual) PT INR D-Dimer Heparin Anti-Xa Level POC ABG pH ABG pH POC ABG pCO2 POC ABG pO2 ABG pO2 ABG HCO3 ABG O2 Saturation ABG Base Excess ABG Hemoglobin Oxyhemoglobin Sodium Potassium 3.2 L Chloride Carbon Dioxide BUN 52 H 48 H Creatinine 3.2 H 2.9 H Glucose 108 H 112 H POC Glucose 109 H Lactic Acid Calcium 11.4 H 12.5 H* Ionized Calcium Phosphorus 5.90 H Magnesium Iron TIBC Ferritin Total Bilirubin Direct Bilirubin AST ALT Alkaline Phosphatase Total Creatine Kinase CK-MB (CK-2) Troponin T C-Reactive Protein Serum Total Protein Total Protein Albumin 3.0 L Ynptq-0-Ppcjjoman Gtofr-1-Ccfudnfxz PEP Interpretation Triglycerides LDL Cholesterol Direct HDL Cholesterol Free T4 PTH Intact Urine WBC (Auto) Urine Creatinine Salicylates Acetaminophen Crossmatch 04/26/19 04/26/19 04/27/19 07:22 13:39 05:05 WBC 11.9 H RBC 3.01 L Hgb 8.6 L Hct 26.3 L MCV MCH MCHC RDW 17.6 H Plt Count Lymph % (Auto) 11.9 L [place] % (Auto) Eos % (Auto) Lymph # [place] # Eos # Seg Neutrophils % 78.3 H Seg Neuts % (Manual) Lymphocytes % (Manual) Monocytes % (Manual) Nucleated RBC % Seg Neutrophils # 9.4 H Seg Neutrophils # Man Lymphocytes # (Manual) Monocytes # (Manual) PT INR D-Dimer Heparin Anti-Xa Level POC ABG pH ABG pH POC ABG pCO2 POC ABG pO2 ABG pO2 ABG HCO3 ABG O2 Saturation ABG Base Excess ABG Hemoglobin Oxyhemoglobin Sodium Potassium Chloride Carbon Dioxide BUN 46 H Creatinine 2.8 H Glucose POC Glucose Lactic Acid Calcium > 13.0 H* 12.2 H* Ionized Calcium Phosphorus Magnesium Iron TIBC Ferritin Total Bilirubin Direct Bilirubin AST ALT Alkaline Phosphatase Total Creatine Kinase CK-MB (CK-2) Troponin T C-Reactive Protein Serum Total Protein Total Protein Albumin Exayf-7-Smcafxtjy Oiuuu-1-Mbumqihbm PEP Interpretation Triglycerides LDL Cholesterol Direct HDL Cholesterol Free T4 PTH Intact Urine WBC (Auto) Urine Creatinine Salicylates Acetaminophen Crossmatch 04/27/19 04/28/19 04/29/19 05:05 05:17 14:14 WBC RBC Hgb Hct MCV MCH MCHC RDW Plt Count Lymph % (Auto) [place] % (Auto) Eos % (Auto) Lymph # [place] # Eos # Seg Neutrophils % Seg Neuts % (Manual) Lymphocytes % (Manual) Monocytes % (Manual) Nucleated RBC % Seg Neutrophils # Seg Neutrophils # Man Lymphocytes # (Manual) Monocytes # (Manual) PT INR D-Dimer Heparin Anti-Xa Level POC ABG pH ABG pH POC ABG pCO2 POC ABG pO2 ABG pO2 ABG HCO3 ABG O2 Saturation ABG Base Excess ABG Hemoglobin Oxyhemoglobin Sodium 136 L Potassium 3.2 L 3.4 L Chloride Carbon Dioxide BUN 40 H 34 H 33 H Creatinine 2.5 H 2.0 H 1.9 H Glucose 113 H 107 H POC Glucose Lactic Acid Calcium 12.3 H* 12.1 H* 11.5 H Ionized Calcium Phosphorus Magnesium Iron TIBC Ferritin Total Bilirubin Direct Bilirubin AST ALT Alkaline Phosphatase Total Creatine Kinase CK-MB (CK-2) Troponin T C-Reactive Protein Serum Total Protein Total Protein 6.2 L Albumin 2.8 L Fdaoc-5-Yeyastxeh Yansq-7-Csulqdbxm PEP Interpretation Triglycerides LDL Cholesterol Direct HDL Cholesterol Free T4 PTH Intact Urine WBC (Auto) Urine Creatinine Salicylates Acetaminophen Crossmatch 04/29/19 04/29/19 04/30/19 14:14 14:14 06:47 WBC RBC Hgb Hct MCV MCH MCHC RDW Plt Count Lymph % (Auto) [place] % (Auto) Eos % (Auto) Lymph # [place] # Eos # Seg Neutrophils % Seg Neuts % (Manual) Lymphocytes % (Manual) Monocytes % (Manual) Nucleated RBC % Seg Neutrophils # Seg Neutrophils # Man Lymphocytes # (Manual) Monocytes # (Manual) PT INR D-Dimer Heparin Anti-Xa Level POC ABG pH ABG pH POC ABG pCO2 POC ABG pO2 ABG pO2 ABG HCO3 ABG O2 Saturation ABG Base Excess ABG Hemoglobin Oxyhemoglobin Sodium Potassium 3.2 L Chloride Carbon Dioxide 21 L BUN 26 H Creatinine 1.8 H Glucose POC Glucose Lactic Acid Calcium 10.8 H Ionized Calcium 7.2 H* Phosphorus Magnesium Iron TIBC Ferritin Total Bilirubin Direct Bilirubin AST ALT Alkaline Phosphatase Total Creatine Kinase CK-MB (CK-2) Troponin T C-Reactive Protein Serum Total Protein Total Protein Albumin Ucleb-7-Aygyzlvew Ecfus-6-Sksdovtcj PEP Interpretation Triglycerides LDL Cholesterol Direct HDL Cholesterol Free T4 PTH Intact 8.83 L Urine WBC (Auto) Urine Creatinine Salicylates Acetaminophen Crossmatch 04/30/19 05/01/19 05/01/19 12:17 06:52 06:52 WBC 15.4 H RBC 3.01 L Hgb 8.4 L Hct 26.2 L MCV MCH MCHC RDW 17.0 H Plt Count Lymph % (Auto) 8.4 L [place] % (Auto) 8.9 H Eos % (Auto) Lymph # [place] # 1.4 H Eos # 0.5 H Seg Neutrophils % 78.7 H Seg Neuts % (Manual) Lymphocytes % (Manual) Monocytes % (Manual) Nucleated RBC % Seg Neutrophils # 12.1 H Seg Neutrophils # Man Lymphocytes # (Manual) Monocytes # (Manual) PT INR D-Dimer Heparin Anti-Xa Level POC ABG pH ABG pH POC ABG pCO2 POC ABG pO2 ABG pO2 ABG HCO3 ABG O2 Saturation ABG Base Excess ABG Hemoglobin Oxyhemoglobin Sodium Potassium 3.0 L Chloride Carbon Dioxide BUN 22 H Creatinine Glucose POC Glucose 106 H Lactic Acid Calcium 11.2 H Ionized Calcium Phosphorus Magnesium Iron TIBC Ferritin Total Bilirubin Direct Bilirubin AST ALT Alkaline Phosphatase Total Creatine Kinase CK-MB (CK-2) Troponin T C-Reactive Protein Serum Total Protein Total Protein Albumin 3.0 L Dxvjg-4-Blwdfusfi Aqeav-8-Kglhyduzi PEP Interpretation Triglycerides LDL Cholesterol Direct HDL Cholesterol Free T4 PTH Intact Urine WBC (Auto) Urine Creatinine Salicylates Acetaminophen Crossmatch 05/01/19 05/01/19 05/02/19 06:52 18:40 05:32 WBC RBC Hgb Hct MCV MCH MCHC RDW Plt Count Lymph % (Auto) [place] % (Auto) Eos % (Auto) Lymph # [place] # Eos # Seg Neutrophils % Seg Neuts % (Manual) Lymphocytes % (Manual) Monocytes % (Manual) Nucleated RBC % Seg Neutrophils # Seg Neutrophils # Man Lymphocytes # (Manual) Monocytes # (Manual) PT INR D-Dimer Heparin Anti-Xa Level POC ABG pH ABG pH POC ABG pCO2 POC ABG pO2 ABG pO2 ABG HCO3 ABG O2 Saturation ABG Base Excess ABG Hemoglobin Oxyhemoglobin Sodium Potassium Chloride Carbon Dioxide BUN Creatinine Glucose POC Glucose 169 H 109 H Lactic Acid Calcium Ionized Calcium Phosphorus Magnesium Iron TIBC Ferritin Total Bilirubin Direct Bilirubin AST ALT Alkaline Phosphatase Total Creatine Kinase CK-MB (CK-2) Troponin T C-Reactive Protein Serum Total Protein 5.7 L Total Protein Albumin 2.5 L Hftln-7-Elzpgqjeu 0.5 H Mjlgy-0-Yycubmdad PEP Interpretation see below H Triglycerides LDL Cholesterol Direct HDL Cholesterol Free T4 PTH Intact Urine WBC (Auto) Urine Creatinine Salicylates Acetaminophen Crossmatch 05/02/19 05/02/19 05/02/19 05:57 05:57 11:43 WBC 14.2 H RBC 2.96 L Hgb 8.3 L Hct 26.0 L MCV MCH MCHC RDW 16.8 H Plt Count Lymph % (Auto) [place] % (Auto) Eos % (Auto) Lymph # [place] # Eos # Seg Neutrophils % Seg Neuts % (Manual) Lymphocytes % (Manual) Monocytes % (Manual) Nucleated RBC % Seg Neutrophils # Seg Neutrophils # Man Lymphocytes # (Manual) Monocytes # (Manual) PT INR D-Dimer Heparin Anti-Xa Level POC ABG pH ABG pH POC ABG pCO2 POC ABG pO2 ABG pO2 ABG HCO3 ABG O2 Saturation ABG Base Excess ABG Hemoglobin Oxyhemoglobin Sodium 136 L Potassium 3.5 L Chloride Carbon Dioxide BUN 21 H Creatinine Glucose POC Glucose 108 H Lactic Acid Calcium 11.1 H Ionized Calcium Phosphorus Magnesium Iron TIBC Ferritin Total Bilirubin Direct Bilirubin AST ALT Alkaline Phosphatase Total Creatine Kinase CK-MB (CK-2) Troponin T C-Reactive Protein Serum Total Protein Total Protein Albumin Bsrxn-2-Xmzlpdkod Ihhmt-3-Bepljsumg PEP Interpretation Triglycerides LDL Cholesterol Direct HDL Cholesterol Free T4 PTH Intact Urine WBC (Auto) Urine Creatinine Salicylates Acetaminophen Crossmatch 05/03/19 05/03/1919 05:37 05:37 06:49 WBC 12.7 H 11.1 H RBC 3.01 L 3.07 L Hgb 8.3 L 8.6 L Hct 26.1 L 26.6 L MCV MCH MCHC RDW 16.9 H 17.3 H Plt Count Lymph % (Auto) [place] % (Auto) 9.0 H Eos % (Auto) 4.9 H Lymph # [place] # 1.0 H Eos # 0.5 H Seg Neutrophils % Seg Neuts % (Manual) Lymphocytes % (Manual) Monocytes % (Manual) Nucleated RBC % Seg Neutrophils # 7.8 H Seg Neutrophils # Man Lymphocytes # (Manual) Monocytes # (Manual) PT INR D-Dimer Heparin Anti-Xa Level POC ABG pH ABG pH POC ABG pCO2 POC ABG pO2 ABG pO2 ABG HCO3 ABG O2 Saturation ABG Base Excess ABG Hemoglobin Oxyhemoglobin Sodium 135 L Potassium 3.3 L Chloride Carbon Dioxide BUN Creatinine Glucose POC Glucose Lactic Acid Calcium 10.9 H Ionized Calcium Phosphorus Magnesium 1.50 L Iron TIBC Ferritin Total Bilirubin Direct Bilirubin AST ALT Alkaline Phosphatase Total Creatine Kinase CK-MB (CK-2) Troponin T C-Reactive Protein Serum Total Protein Total Protein Albumin Xfuhl-6-Ckwxtysgd Hdjcv-4-Dekpuszda PEP Interpretation Triglycerides LDL Cholesterol Direct HDL Cholesterol Free T4 PTH Intact Urine WBC (Auto) Urine Creatinine Salicylates Acetaminophen Crossmatch 05/04/19 05/04/19 05/04/19 06:49 06:49 11:58 WBC RBC Hgb Hct MCV MCH MCHC RDW Plt Count Lymph % (Auto) [place] % (Auto) Eos % (Auto) Lymph # [place] # Eos # Seg Neutrophils % Seg Neuts % (Manual) Lymphocytes % (Manual) Monocytes % (Manual) Nucleated RBC % Seg Neutrophils # Seg Neutrophils # Man Lymphocytes # (Manual) Monocytes # (Manual) PT 15.5 H INR 1.24 H D-Dimer Heparin Anti-Xa Level POC ABG pH ABG pH POC ABG pCO2 POC ABG pO2 ABG pO2 ABG HCO3 ABG O2 Saturation ABG Base Excess ABG Hemoglobin Oxyhemoglobin Sodium Potassium Chloride Carbon Dioxide 19 L BUN Creatinine Glucose POC Glucose 111 H Lactic Acid Calcium 10.7 H Ionized Calcium Phosphorus Magnesium Iron TIBC Ferritin Total Bilirubin Direct Bilirubin AST ALT Alkaline Phosphatase Total Creatine Kinase CK-MB (CK-2) Troponin T C-Reactive Protein Serum Total Protein Total Protein Albumin Wrbzn-5-Cujarjpck Tqeho-4-Emkvponqy PEP Interpretation Triglycerides LDL Cholesterol Direct HDL Cholesterol Free T4 PTH Intact Urine WBC (Auto) Urine Creatinine Salicylates Acetaminophen Crossmatch 05/05/19 05/05/19 05/07/19 06:14 06:14 05:55 WBC 11.5 H 12.0 H RBC 3.08 L 3.33 L Hgb 8.5 L 9.2 L Hct 26.5 L 28.5 L MCV MCH MCHC RDW 17.1 H 17.6 H Plt Count Lymph % (Auto) [place] % (Auto) Eos % (Auto) 8.2 H Lymph # [place] # Eos # 1.0 H Seg Neutrophils % Seg Neuts % (Manual) Lymphocytes % (Manual) Monocytes % (Manual) Nucleated RBC % Seg Neutrophils # 8.2 H Seg Neutrophils # Man Lymphocytes # (Manual) Monocytes # (Manual) PT INR D-Dimer Heparin Anti-Xa Level POC ABG pH ABG pH POC ABG pCO2 POC ABG pO2 ABG pO2 ABG HCO3 ABG O2 Saturation ABG Base Excess ABG Hemoglobin Oxyhemoglobin Sodium 136 L Potassium Chloride Carbon Dioxide 21 L BUN Creatinine Glucose POC Glucose Lactic Acid Calcium 10.3 H Ionized Calcium Phosphorus Magnesium Iron TIBC Ferritin Total Bilirubin Direct Bilirubin AST ALT Alkaline Phosphatase Total Creatine Kinase CK-MB (CK-2) Troponin T C-Reactive Protein Serum Total Protein Total Protein Albumin Gwljp-4-Llkjscmma Idyqp-6-Dailbyxuy PEP Interpretation Triglycerides LDL Cholesterol Direct HDL Cholesterol Free T4 PTH Intact Urine WBC (Auto) Urine Creatinine Salicylates Acetaminophen Crossmatch 05/07/19 05/08/19 05/08/19 05:55 07:27 07:27 WBC 12.5 H RBC 3.50 L Hgb 9.4 L Hct 30.4 L MCV MCH 27 L MCHC 31 L RDW 17.2 H Plt Count Lymph % (Auto) [place] % (Auto) Eos % (Auto) 10.3 H Lymph # [place] # Eos # 1.3 H Seg Neutrophils % Seg Neuts % (Manual) Lymphocytes % (Manual) Monocytes % (Manual) Nucleated RBC % Seg Neutrophils # 8.7 H Seg Neutrophils # Man Lymphocytes # (Manual) Monocytes # (Manual) PT INR D-Dimer Heparin Anti-Xa Level POC ABG pH ABG pH POC ABG pCO2 POC ABG pO2 ABG pO2 ABG HCO3 ABG O2 Saturation ABG Base Excess ABG Hemoglobin Oxyhemoglobin Sodium Potassium 3.5 L Chloride Carbon Dioxide 20 L 20 L BUN Creatinine Glucose POC Glucose Lactic Acid Calcium 10.7 H 10.7 H Ionized Calcium Phosphorus Magnesium Iron TIBC Ferritin Total Bilirubin Direct Bilirubin AST ALT Alkaline Phosphatase Total Creatine Kinase CK-MB (CK-2) Troponin T C-Reactive Protein Serum Total Protein Total Protein Albumin 3.2 L 3.4 L Czwid-0-Gtuzkvwfd Lhpif-2-Hjohtxssd PEP Interpretation Triglycerides LDL Cholesterol Direct HDL Cholesterol Free T4 PTH Intact Urine WBC (Auto) Urine Creatinine Salicylates Acetaminophen Crossmatch Allied health notes reviewed: nursing
[2019-05-08] MEDS: ACETAMINOPHEN 325 MG TAB PO PRN (21:01)
[2019-05-08] MEDS: MELATONIN 5 MG TAB PO PRN (22:29)
[2019-05-09 06:05] LABS: Basophils # (Auto) 0.1 K/mm3 (0.0-0.1); Basophils % (Auto) 0.7 % (0.0-1.8); Eosinophils # (Auto) 1.7 K/mm3 (0.0-0.4); Eosinophils % (Auto) 14.3 % (0.0-4.3); Hematocrit 27.9 % (35.5-45.6); Hemoglobin 9.2 gm/dl (11.8-15.2); Lymphocytes # (Auto) 2.1 K/mm3 (1.2-5.4); Lymphocytes % (Auto) 17.9 % (13.4-35.0); Mean Corpuscular HGB Conc 33 % (32-34); Mean Corpuscular Volume 86 fl (84-94); Monocytes # (Auto) 0.7 K/mm3 (0.0-0.8); Monocytes % (Auto) 5.6 % (0.0-7.3); Platelet Count 305 K/mm3 (140-440); Red Blood Count 3.27 M/mm3 (3.65-5.03); Red Cell Distribution Width 17.8 % (13.2-15.2)
[2019-05-09 06:55] LABS: Alanine Aminotransferase 14 units/L (7-56); Albumin 3.3 g/dL (3.9-5); BUN/Creatinine Ratio 13; Blood Urea Nitrogen 16 mg/dL (9-20); Calcium 10.6 mg/dL (8.4-10.2); Hemolysis Index 5
--- NOTE | 2019-05-09 10:16 | Progress Note ---
Assessment and Plan Currently stable cardiac status. S/p EGD yesterday. GI recs noted - ok to proceed with necessary cardiac work up and no high risk findings noted on exam for GI bleeding. Will plan for LHC in AM. NPO after MN. Assessment and plan reviewed with pt at bedside and he is agreeable. The patient has been seen in conjunction with Dr. Angel who agrees with the assessment and plan of care. - Patient Problems (1) Cardiopulmonary arrest Current Visit: Yes Status: Acute (2) Acute respiratory failure Current Visit: Yes Status: Resolved Qualifiers: Respiratory failure complication: hypoxia Qualified Code(s): J96.01 - Acute respiratory failure with hypoxia (3) Paroxysmal atrial fibrillation with RVR Current Visit: Yes Status: Acute (4) SVT (supraventricular tachycardia) Current Visit: Yes Status: Resolved (5) Torsades de pointes Current Visit: Yes Status: Acute (6) Ventricular tachycardia Current Visit: Yes Status: Resolved (7) Encephalopathy Current Visit: Yes Status: Acute (8) Septic shock Current Visit: Yes Status: Resolved (9) Aspiration pneumonia Current Visit: Yes Status: Acute Qualifiers: Aspiration pneumonia type: unspecified (10) Meningitis Current Visit: Yes Status: Suspected (11) Cellulitis Current Visit: Yes Status: Acute (12) Acute renal failure Current Visit: Yes Status: Acute Qualifiers: Acute renal failure type: with acute tubular necrosis Qualified Code(s): N17.0 - Acute kidney failure with tubular necrosis (13) GI bleed Current Visit: Yes Status: Acute (14) Anemia Current Visit: Yes Status: Acute (15) Thrombocytopenia Current Visit: Yes Status: Resolved (16) DVT (deep venous thrombosis) Current Visit: Yes Status: Acute Subjective Date of service: 05/09/19 Principal diagnosis: Anemia - DVT rt IJ, GI bleeding Interval history: no current complaints. in SR. Objective Last Vital Signs Temp 97.8 F 05/09/19 05:12 Pulse 70 05/09/19 05:12 Resp 20 05/09/19 05:12 BP 132/90 05/09/19 05:12 Pulse Ox 97 05/09/19 05:12 - Physical Examination General: No Apparent Distress HEENT: Positive: PERRL, EOMI, Normocephaly, Mucus Membranes Moist Neck: Positive: neck supple, trachea midline Cardiac: Positive: Reg Rate and Rhythm, S1/S2 Lungs: Positive: Decreased Breath Sounds Neuro: Positive: Grossly Intact, Other Abdomen: Positive: Soft, Active Bowel Sounds. Negative: Tender /Rectal: Other (deferred) Skin: Positive: Clear, Wound (left arm ). Negative: Rash Musculoskeletal: Normal Range of Motion, other (LUE swollen ) Extremities: Present: normal. Absent: edema - Labs and Meds Cardiac Enzymes 05/09/19 Range/Units 05:41 AST 13 (5-40) units/L CBC 05/09/19 Range/Units 05:41 WBC 11.7 H (4.5-11.0) K/mm3 RBC 3.27 L (3.65-5.03) M/mm3 Hgb 9.2 L (11.8-15.2) gm/dl Hct 27.9 L (35.5-45.6) % Plt Count 305 (140-440) K/mm3 Lymph # 2.1 (1.2-5.4) K/mm3 [place] # 0.7 (0.0-0.8) K/mm3 Eos # 1.7 H (0.0-0.4) K/mm3 Baso # 0.1 (0.0-0.1) K/mm3 Comprehensive Metabolic Panel 05/09/19 Range/Units 05:41 Sodium 136 L (137-145) mmol/L Potassium 3.7 (3.6-5.0) mmol/L Chloride 102.5 (98-107) mmol/L Carbon Dioxide 21 L (22-30) mmol/L BUN 16 (9-20) mg/dL Creatinine 1.2 (0.8-1.5) mg/dL Glucose 83 (75-100) mg/dL Calcium 10.6 H (8.4-10.2) mg/dL AST 13 (5-40) units/L ALT 14 (7-56) units/L Alkaline Phosphatase 70 (35-129) units/L Total Protein 6.8 (6.3-8.2) g/dL Albumin 3.3 L (3.9-5) g/dL - Imaging and Cardiology Echo: report reviewed ( EF 40-45%, impaired relaxation. ) - EKG Sinus rhythms and dysrhythmias: sinus rhythm - Allied health notes Allied health notes reviewed: nursing
--- NOTE | 2019-05-09 10:19 | Procedure Note ---
Date of procedure: 05/09/19 Pre-op diagnosis: Left antecubital wound Post-op diagnosis: same Procedure: Debridement of left antecubital wound Description of procedure: Pt was supine on his bed. Left AC area was prepped and draped. Necrotic skin and SQ tissue was surgically/excisionally debrided with a scalpel and forceps. Bleeding was minimal and was controlled with pressure. Pt tolerated the procedure well. Wound was dressed by his nurse. Final wound measurements: 4.5 X 8 X 1 cm Anesthesia: none Surgeon: BLAKE LIND Estimated blood loss: minimal Pathology: none Specimen disposition: discarded Condition: stable Disposition: no change
[2019-05-09] MEDS: PANTOPRAZOLE 40 MG TAB PO SCH ×2 (10:38→21:50)
[2019-05-09] MEDS: HYDROcodone/ACETAMINOPHEN 5-325 MG TAB PO PRN ×3 (10:39→23:05)
[2019-05-09] MEDS ORDERED: SODIUM CHLORIDE 0.9% 500 ML 500 ML IV SCH (11:00)
[2019-05-09] MEDS: METOPROLOL TARTRATE 25 MG TAB PO SCH ×3 (11:21→21:50)
--- NOTE | 2019-05-09 12:26 | Progress Note ---
Assessment and Plan Assessment and plan: ? PVD. Check arterial Dopplers. - Acute hypoxic respiratory failure. Was intubated, but now extubated. Now on Room air. Continue BiPAP as clinically indicated. - Atrial fibrillation. Continue Metoprolol. Cardiology following. No systemic AC regarding AFib in setting of anemia, thrombocytopenia, GI bleed. - Abnormal Lexiscan stress with ejection fraction of 45% LHC recommended. However givenrercent history of GI bleding from duodenal ulcer GI consult was obtained to further patient for suitability of antiplatelet following cardiac catheterization. Discussed with Dr. Rojas GI who planned follow-up EGD to evaluate status of pt's duodenal ulcer before making a recommendation on antiplatelets therapy following [facility]. - Acute blood loss anemia. Patient with GI bleed secondary to peptic ulcer disease. EGD completed per GI. Continue PRBCs as needed. - GI bleed/peptic ulcer disease. Continue PPI. Transfuse PRBCs as needed. - Sepsis/septic shock. Continue antibiotics per ID. Now on Zyvox and Azactam - Fever, recurrent ID following - Ischemic hepatitis/shock liver. Elevated LFTs improved. Viral hepatitis panel negative. - Acute kidney injury. Patient still on hemodialysis. Patient was started on hemodialysis on 03/18/19 due to worsening metabolic acidosis and hyperkalemia. Baseline renal function is unknown. CT abdomen was negative for obstructive nephropathy. Avoid nephrotoxic agents. Continue hemodialysis per nephrology. - Toxic metabolic encephalopathy. Brain MRI showed no acute intracranial abnormality, mild nonspecific chronic white matter changes, fluid throughout the sinuses and mastoid air cells. - Swelling both upper ext L>R Doppler US : no DVT LUE - Hypokalemia. Correted Replete potassium as needed. Hypernatremia. Bumex was stopped. Follow-up [facility] Nephrology following Now resolved Na 141 today Thrombocytopenia. Etiology likely secondary to sepsis. Resolved. Rhabdomyolysis. CK normalized. Full code status Disposition. Awaiting for arrangements for SNF in [place] History Interval history: Nurse reports patient describing little feeling in his feet bilaterally. Hospitalist Physical - Constitutional Vitals: Temp Pulse Resp BP Pulse Ox 97.8 F 79 20 134/81 97 05/09/19 05:12 05/09/19 11:21 05/09/19 05:12 05/09/19 11:21 05/09/19 05:12 General appearance: Present: obese - EENT Eyes: Present: PERRL, EOM intact ENT: hearing intact, clear oral mucosa, dentition normal - Neck Neck: Present: supple, normal ROM - Respiratory Respiratory effort: normal Respiratory: bilateral: CTA - Cardiovascular Rhythm: regular Heart Sounds: Present: S1 & S2. Absent: gallop, rub - Extremities Extremities: no ischemia (bilateral lower extremities with good pulses, warm to touch with no evidence of ischemia.), No edema, normal temperature, normal color, Full ROM - Abdominal General gastrointestinal: soft, non-tender, non-distended, normal bowel sounds - Integumentary Integumentary: Present: clear, warm, dry - Neurologic Neurologic: CNII-XII intact, moves all extremities Results - Labs CBC & Chem 7: 05/09/19 05:41 05/09/19 05:41 Labs: Laboratory Last Values WBC 11.7 K/mm3 (4.5-11.0) H 05/09/19 05:41 RBC 3.27 M/mm3 (3.65-5.03) L 05/09/19 05:41 Hgb 9.2 gm/dl (11.8-15.2) L 05/09/19 05:41 Hct 27.9 % (35.5-45.6) L 05/09/19 05:41 MCV 86 fl (84-94) 05/09/19 05:41 MCH 28 pg (28-32) 05/09/19 05:41 MCHC 33 % (32-34) 05/09/19 05:41 RDW 17.8 % (13.2-15.2) H 05/09/19 05:41 Plt Count 305 K/mm3 (140-440) 05/09/19 05:41 Lymph % (Auto) 17.9 % (13.4-35.0) 05/09/19 05:41 [place] % (Auto) 5.6 % (0.0-7.3) 05/09/19 05:41 Eos % (Auto) 14.3 % (0.0-4.3) H 05/09/19 05:41 Baso % (Auto) 0.7 % (0.0-1.8) 05/09/19 05:41 Lymph # 2.1 K/mm3 (1.2-5.4) 05/09/19 05:41 [place] # 0.7 K/mm3 (0.0-0.8) 05/09/19 05:41 Eos # 1.7 K/mm3 (0.0-0.4) H 05/09/19 05:41 Baso # 0.1 K/mm3 (0.0-0.1) 05/09/19 05:41 Add Manual Diff Complete 04/11/19 04:16 Total Counted 100 04/11/19 04:16 Seg Neutrophils % 61.5 % (40.0-70.0) 05/09/19 05:41 Seg Neuts % (Manual) 71.0 % (40.0-70.0) H 04/11/19 04:16 Band Neutrophils % 1.0 % 04/11/19 04:16 Lymphocytes % (Manual) 17.0 % (13.4-35.0) 04/11/19 04:16 Reactive Lymphs % (Man) 0 % 04/11/19 04:16 Monocytes % (Manual) 8.0 % (0.0-7.3) H 04/11/19 04:16 Eosinophils % (Manual) 2.0 % (0.0-4.3) 04/11/19 04:16 Basophils % (Manual) 1.0 % (0.0-1.8) 04/11/19 04:16 Metamyelocytes % 0 % 04/11/19 04:16 Myelocytes % 0 % 04/11/19 04:16 Promyelocytes % 0 % 04/11/19 04:16 Blast Cells % 0 % 04/11/19 04:16 Nucleated RBC % Not Reportable 04/11/19 04:16 Seg Neutrophils # 7.2 K/mm3 (1.8-7.7) 05/09/19 05:41 Seg Neutrophils # Man 8.2 K/mm3 (1.8-7.7) H 04/11/19 04:16 Band Neutrophils # 0.1 K/mm3 04/11/19 04:16 Lymphocytes # (Manual) 2.0 K/mm3 (1.2-5.4) 04/11/19 04:16 Abs React Lymphs (Man) 0.0 K/mm3 04/11/19 04:16 Monocytes # (Manual) 0.9 K/mm3 (0.0-0.8) H 04/11/19 04:16 Eosinophils # (Manual) 0.2 K/mm3 (0.0-0.4) 04/11/19 04:16 Basophils # (Manual) 0.1 K/mm3 (0.0-0.1) 04/11/19 04:16 Metamyelocytes # 0.0 K/mm3 04/11/19 04:16 Myelocytes # 0.0 K/mm3 04/11/19 04:16 Promyelocytes # 0.0 K/mm3 04/11/19 04:16 Blast Cells # 0.0 K/mm3 04/11/19 04:16 WBC Morphology Not Reportable 04/11/19 04:16 Hypersegmented Neuts Not Reportable 04/11/19 04:16 Hyposegmented Neuts Not Reportable 04/11/19 04:16 Hypogranular Neuts Not Reportable 04/11/19 04:16 Smudge Cells Not Reportable 04/11/19 04:16 Toxic Granulation Not Reportable 04/11/19 04:16 Toxic Vacuolation Not Reportable 04/11/19 04:16 Dohle Bodies Not Reportable 04/11/19 04:16 Pelger-Huet Anomaly Not Reportable 04/11/19 04:16 Joyce Rods Not Reportable 04/11/19 04:16 Platelet Estimate Consistent w auto 04/11/19 04:16 Clumped Platelets Not Reportable 04/11/19 04:16 Plt Clumps, EDTA Not Reportable 04/11/19 04:16 Large Platelets Not Reportable 04/11/19 04:16 Giant Platelets Not Reportable 04/11/19 04:16 Platelet Satelliting Not Reportable 04/11/19 04:16 Plt Morphology Comment Not Reportable 04/11/19 04:16 RBC Morphology Not Reportable 04/11/19 04:16 Dimorphic RBCs Not Reportable 04/11/19 04:16 Polychromasia Not Reportable 04/11/19 04:16 Hypochromasia Not Reportable 04/11/19 04:16 Poikilocytosis Not Reportable 04/11/19 04:16 Anisocytosis Rare 04/11/19 04:16 Microcytosis Rare 04/11/19 04:16 Macrocytosis Not Reportable 04/11/19 04:16 Spherocytes Not Reportable 04/11/19 04:16 Pappenheimer Bodies Not Reportable 04/11/19 04:16 Sickle Cells Not Reportable 04/11/19 04:16 Target Cells Not Reportable 04/11/19 04:16 Tear Drop Cells Not Reportable 04/11/19 04:16 Ovalocytes Not Reportable 04/11/19 04:16 Stomatocytes Few 03/26/19 Unknown Helmet Cells Not Reportable 04/11/19 04:16 [place] Bodies Not Reportable 04/11/19 04:16 [place] Rings Not Reportable 04/11/19 04:16 [place] Cells Not Reportable 04/11/19 04:16 Bite Cells Not Reportable 04/11/19 04:16 Crenated Cell Not Reportable 04/11/19 04:16 Elliptocytes Not Reportable 04/11/19 04:16 Acanthocytes (Spur) Not Reportable 04/11/19 04:16 Rouleaux Not Reportable 04/11/19 04:16 Hemoglobin C Crystals Not Reportable 04/11/19 04:16 Schistocytes Not Reportable 04/11/19 04:16 Malaria parasites Not Reportable 04/11/19 04:16 Phil Bodies Not Reportable 04/11/19 04:16 Hem Pathologist Commnt No 04/11/19 04:16 PT 14.2 Sec. (12.2-14.9) 05/07/19 05:55 INR 1.11 (0.87-1.13) 05/07/19 05:55 APTT 26.6 Sec. (24.2-36.6) 03/28/19 12:00 Fibrinogen 226 mg/dl (211-480) 03/28/19 12:00 D-Dimer 4845.98 ng/mlDDU (0-234) H 03/28/19 12:00 Heparin Anti-Xa Level 0.23 U.I./ml (0.3-0.7) L 03/28/19 05:13 POC ABG pH 7.401 (7.35-7.45) 04/07/19 12:57 ABG pH 7.388 pH Units (7.350-7.450) 04/06/19 05:20 POC ABG pCO2 41.5 (35-45) 04/07/19 12:57 ABG pCO2 38.5 mm Hg 04/06/19 05:20 POC ABG pO2 107 (80-105) H 04/07/19 12:57 ABG pO2 104.0 mm Hg (80.0-90.0) H 04/06/19 05:20 POC ABG HCO3 25.7 (22-26 mml/L) 04/07/19 12:57 ABG HCO3 22.6 mmol/L (20.0-26.0) 04/06/19 05:20 POC ABG Total CO2 27 (23-27mmol/L) 04/07/19 12:57 POC ABG O2 Sat 98 04/07/19 12:57 ABG O2 Saturation 97.8 % (95.0-99.0) 04/06/19 05:20 ABG O2 Content 10.0 (0.0-44) 04/06/19 05:20 POC ABG Base Excess 1 ((-2) - (+3)mmol/L) 04/07/19 12:57 ABG Base Excess -2.1 mmol/L (-2.0-3.0) L 04/06/19 05:20 ABG Hemoglobin 7.3 gm/dl (14.0-18.0) L 04/06/19 05:20 ABG Carboxyhemoglobin 1.7 % (0.0-5.0) 04/06/19 05:20 ABG Methemoglobin 0.6 % (0.0-1.5) 04/06/19 05:20 Oxyhemoglobin 95.5 % (95.0-99.0) 04/06/19 05:20 FiO2 30 % 04/07/19 12:57 Sodium 136 mmol/L (137-145) L 05/09/19 05:41 Potassium 3.7 mmol/L (3.6-5.0) 05/09/19 05:41 Chloride 102.5 mmol/L (98-107) 05/09/19 05:41 Carbon Dioxide 21 mmol/L (22-30) L 05/09/19 05:41 Anion Gap 16 mmol/L 05/09/19 05:41 BUN 16 mg/dL (9-20) 05/09/19 05:41 Creatinine 1.2 mg/dL (0.8-1.5) 05/09/19 05:41 Estimated GFR > 60 ml/min 05/09/19 05:41 BUN/Creatinine Ratio 13 % 05/09/19 05:41 Glucose 83 mg/dL (75-100) 05/09/19 05:41 POC Glucose 88 (70-105) 05/06/19 11:38 Lactic Acid 1.90 mmol/L (0.7-2.0) 03/21/19 21:31 Calcium 10.6 mg/dL (8.4-10.2) H 05/09/19 05:41 Ionized Calcium 7.2 mg/dL (4.8-5.6) H* 04/29/19 14:14 Phosphorus 2.80 mg/dL (2.5-4.5) 05/03/19 05:37 Magnesium 2.20 mg/dL (1.7-2.3) 05/04/19 06:49 Iron 26 ug/dL (49-181) L 04/02/19 05:03 TIBC 138 mcg/dL (250-450) L 04/02/19 05:03 Ferritin 607.0 ng/mL (13.0-400.0) H 04/02/19 05:03 Total Bilirubin 0.30 mg/dL (0.1-1.2) 05/09/19 05:41 Direct Bilirubin 0.4 mg/dL (0-0.2) H 03/31/19 08:20 Indirect Bilirubin 0.1 mg/dL 03/31/19 08:20 AST 13 units/L (5-40) 05/09/19 05:41 ALT 14 units/L (7-56) 05/09/19 05:41 Alkaline Phosphatase 70 units/L (35-129) 05/09/19 05:41 Total Creatine Kinase 62 units/L (55-170) 04/07/19 05:40 CK-MB (CK-2) 54.3 ng/mL (0.0-4.0) H 03/17/19 07:16 CK-MB (CK-2) Rel Index 0.0 (0-4) 03/17/19 07:16 Troponin T 0.058 ng/mL (0.00-0.029) H 03/17/19 07:16 C-Reactive Protein 7.10 mg/dL (0.00-1.30) H 04/17/19 04:15 Serum Total Protein 5.7 g/dL (6.1-8.1) L 05/01/19 06:52 Total Protein 6.8 g/dL (6.3-8.2) 05/09/19 05:41 Albumin 3.3 g/dL (3.9-5) L 05/09/19 05:41 Albumin/Globulin Ratio 0.9 % 05/09/19 05:41 Fimlz-4-Fattftzbu 0.5 g/dL (0.2-0.3) H 05/01/19 06:52 Vgydu-6-Qsokbqtpy 0.9 g/dL (0.5-0.9) 05/01/19 06:52 Beta Globulins 0.4 g/dL (0.2-0.5) 05/01/19 06:52 Gamma Globulins 1.0 g/dL (0.8-1.7) 05/01/19 06:52 Abnorm Protein Band 1 see below 05/01/19 06:52 PEP Interpretation see below H 05/01/19 06:52 Triglycerides 309 mg/dL (2-149) H 03/29/19 06:22 Cholesterol 88 mg/dL (50-199) 03/16/19 22:32 LDL Cholesterol Direct 10 mg/dL (50-130) L 03/16/19 22:32 HDL Cholesterol 7 mg/dL (40-59) L 03/16/19 22:32 Cholesterol/HDL Ratio 12.57 % 03/16/19 22:32 Vitamin B12 903.0 pg/mL (211-911) 04/02/19 05:03 25-Hydroxy Vitamin D2 <4 ng/mL 04/29/19 14:14 1,25 Dihydroxy Vit D2 <8 pg/mL 04/29/19 14:14 25-Hydroxy Vitamin D3 11 ng/mL 04/29/19 14:14 1,25 Dihydroxy Vit D3 <8 pg/mL 04/29/19 14:14 Folate 8.05 ng/mL (7.3-26.0) 04/02/19 05:03 Procalcitonin 25.42 ng/mL (<0.15) 03/27/19 19:21 TSH 2.200 mlU/mL (0.270-4.200) 03/16/19 17:05 Free T4 0.72 ng/dL (0.76-1.46) L 03/16/19 17:05 PTH Intact 8.83 pg/mL (15-65) L 04/29/19 14:14 Urine Color Yellow (Yellow) 04/15/19 22:11 Urine Turbidity Clear (Clear) 04/15/19 22:11 Urine pH 6.0 (5.0-7.0) 04/15/19 22:11 Ur Specific [place] 1.010 (1.003-1.030) 04/15/19 22:11 Urine Protein 30 mg/dl mg/dL (Negative) 04/15/19 22:11 Urine Glucose (UA) Neg mg/dL (Negative) 04/15/19 22:11 Urine Ketones Neg mg/dL (Negative) 04/15/19 22:11 Urine Blood Mod (Negative) 04/15/19 22:11 Urine Nitrite Neg (Negative) 04/15/19 22:11 Urine Bilirubin Neg (Negative) 04/15/19 22:11 Urine Urobilinogen < 2.0 mg/dL (<2.0) 04/15/19 22:11 Ur Leukocyte Esterase Neg (Negative) 04/15/19 22:11 Urine WBC (Auto) 4.0 /HPF (0.0-6.0) 04/15/19 22:11 Urine RBC (Auto) 2.0 /HPF (0.0-6.0) 04/15/19 22:11 U Epithel Cells (Auto) < 1.0 /HPF (0-13.0) 04/15/19 22:11 Amorphous Crystals 1+ 04/05/19 16:50 Urine Mucus Few /HPF 03/17/19 16:05 Urine Sperm 2+ /HPF (WIRE WALKER) 03/17/19 16:05 Urine Eosinophils None seen (None Seen) 03/17/19 16:05 Urine Creatinine 106.6 mg/dL (0.1-20.0) H 03/17/19 16:05 Urine Sodium 95 mmol/L 03/17/19 16:05 Vancomycin Trough 11.5 ug/mL (5.0-20.0) 03/18/19 13:19 Random Vancomycin 10.8 ug/mL (0-40.0) 04/14/19 03:55 Salicylates < 0.3 mg/dL (2.8-20.0) L 03/16/19 17:05 Urine Opiates Screen Presumptive negative 03/17/19 16:05 Urine Methadone Screen Presumptive negative 03/17/19 16:05 Acetaminophen < 5.0 ug/mL (10.0-30.0) L 03/16/19 17:05 Ur Barbiturates Screen Presumptive negative 03/17/19 16:05 Ur Phencyclidine Scrn Presumptive negative 03/17/19 16:05 Ur Amphetamines Screen Presumptive negative 03/17/19 16:05 U Benzodiazepines Scrn Presumptive positive 03/17/19 16:05 Urine Cocaine Screen Presumptive negative 03/17/19 16:05 U Marijuana (THC) Screen Presumptive negative 03/17/19 16:05 Drugs of Abuse Note Disclamer 03/17/19 16:05 Plasma/Serum Alcohol < 0.01 % (0-0.07) 03/16/19 17:05 Immunofix Electrophor see below 05/01/19 06:52 LANDY Screen Negative (Negative) 04/17/19 04:15 Proteinase 3 (PR3) Ab <1.0 AI (<1.0) 04/21/19 04:22 Myeloperoxidase Ab <1.0 AI (<1.0) 04/21/19 04:22 Glomerular Base Mem IgG See scanned result 04/21/19 04:22 Complement C3 150 mg/dL (82-185) 04/17/19 04:15 Complement C4 37 mg/dL (15-53) 04/17/19 04:15 Hepatitis A IgM Ab Non-reactive (NonReactive) 04/18/19 10:02 Hep Bs Antigen Non-reactive (Negative) 04/18/19 10:02 Hep B Core IgM Ab Non-reactive (NonReactive) 04/18/19 10:02 Hepatitis C Antibody Non-reactive (NonReactive) 04/18/19 10:02 HIV 1&2 Antibody Rapid Non react (Non React) 03/17/19 11:52 HIV P24 Antigen Non react (Non React) 03/17/19 11:52 Influenza A (Rapid) Negative (Negative) 03/17/19 17:00 Influenza B (Rapid) Negative (Negative) 03/17/19 17:00 Group A Strep Rapid Negative (Negative) 03/17/19 17:00 Miscellaneous Test Flexitest 1 03/21/19 12:00 Blood Type A POSITIVE 04/02/19 16:34 Antibody Screen Negative 04/02/19 16:34 Crossmatch See Detail 04/02/19 16:34 Active Medications - Current Medications Current Medications: Generic Name Dose Route Start Last Admin Trade Name Freq PRN Reason Stop Dose Admin Acetaminophen 650 mg 04/02/19 23:26 05/08/19 21:01 Tylenol PO 650 mg Q4H PRN Administration Pain, Mild (1-3),temp>100.5 Acetaminophen/Hydrocodone Bitart 1 each 05/02/19 11:50 05/09/19 10:39 [place] 5/325 PO 1 each Q6H PRN Administration Pain, Moderate (4-6) Al Hydrox/Mg Hydrox/Simethicone 15 ml 04/30/19 15:15 04/30/19 15:53 Alum-Mag Hydrox-Simeth 637-719-25xt/5ml PO 15 ml Q4H PRN Administration Indigestion Albuterol 2.5 mg 03/29/19 13:08 Proventil IH Q4HRT PRN Shortness Of Breath Lipase/Protease/Amylase 1 each 04/20/19 13:17 Pancreaze 10,500 Unit FEEDTUBE PRN PRN For Clogged Feeding Tube Bacitracin 1 applic 04/17/19 08:00 Antibiotic Oint TP Q4H PRN upper lip sore/open Dextrose 50 gm 04/17/19 08:00 D50w (25gm) Vial IV Q1H PRN Hypoglycemia Hydralazine HCl 20 mg 04/14/19 03:00 04/14/19 03:11 Apresoline IV 20 mg Q4H PRN Administration hypertemsion Hydrophilic Ointment 1 applic 03/16/19 15:50 04/19/19 18:24 Vaseline Lip Therapy TP 1 applic Q2HR PRN Administration Dry Lips Sodium Chloride 100 mls @ 999 mls/hr 04/20/19 08:41 Nacl 0.9% IV NEYMAR PRN Hypotension Sodium Chloride 1,000 mls @ 50 mls/hr 05/08/19 13:00 Nacl 0.9% 1000 Ml IV 05/09/19 12:59 DIRECT PAOLO Sodium Chloride 500 mls @ 50 mls/hr 05/09/19 11:00 Nacl 0.9% 500 Ml IV 05/09/19 20:59 DIRECT PAOLO Melatonin 5 mg 04/26/19 21:00 05/08/19 22:29 Melatonin PO 5 mg QHS PRN Administration Sleep Metoprolol Tartrate 25 mg 04/17/19 20:00 05/09/19 11:21 Lopressor PO 25 mg TID PAOLO Administration Multi-Ingred Cream/Lotion/Oil/Oint 1 applic 03/16/19 15:50 03/19/19 20:10 Artificial Tears Ophth Oint OU 1 applic Q4HR PRN Administration Dry Eye(s) Pantoprazole Sodium 40 mg 05/07/19 22:00 05/09/19 10:38 Protonix PO 40 mg BID PAOLO Administration Simple Syrup 15 ml 04/20/19 13:17 Simple Syrup FEEDTUBE PRN PRN Hypoglycemia Simple Syrup 30 ml 04/20/19 13:29 05/01/19 17:57 Simple Syrup FEEDTUBE 30 ml PRN PRN Administration Hypoglycemia Sodium Bicarbonate 325 mg 04/20/19 13:17 04/27/19 11:03 Sodium Bicarbonate FEEDTUBE 325 mg PRN PRN Administration For Clogged Feeding Tube Nutrition/Malnutrition Assess - Dietary Evaluation Nutrition/Malnutrition Findings: Nutrition Notes Start: 03/17/19 14:22 Freq: Status: Active Protocol: Document 05/07/19 14:38 JOVANNI (Rec: 05/07/19 14:46 JOVANNI [email or web address]) Nutrition Notes Initial or Follow up Reassessment Current Diagnosis Acute Kidney Injury,Sepsis Other Pertinent Diagnosis GIB, on HD, afib Current Diet Regular + Ensure Clear daily Labs/Tests K 3.5 Ca 10.7 Pertinent Medications Reviewed Height 6 ft Weight 146.8 kg [place] Body Weight (kg) 80.90 BMI 43.9 Subjective/Other Information No meal intakes documented. Pt reports "pretty good" appetite. He is eating at least 50% of meals and drinks ONS. Burn Absent Trauma Absent #1 Nutrition Diagnosis Inadequate oral intake As Evidenced by Signs and Symptoms pt reports good appetite and is consuming at least 50% of meals Diagnosis Progress(for reassessment Improved documentation) Is patient on ventilator? No Is Patient Ambulatory and/or Out of Bed No REE-([facility]-confined to bed) 2871.756 Kcal/Kg value to use for calculation 14 Approximate Energy Requirements Using 2055 kcal/Kg Calculation Used for Recommendations Kcal/kg Additional Notes Pro needs >1.2g/kg adjBW: > 137g/day Fluid needs 1ml/kcal Nutrition Intervention Change Diet Order: Continue current diet order Add Supplement/Snack (indicate name/kcal Ensure Clear once daily /protein ) Provides kCal: 240 Provides Protein (gm) 8 Goal #1 Meet at least 75% of kcal/PRO needs via PO and ONS intakes Follow-Up By: 05/14/19 Additional Comments F/U: stable intakes (meals/ONS ), wt
[2019-05-09 13:26] LABS: Abnormal Protein Band 1 SEE SCANNED RESULT; Abnormal Protein Band 2 SEE SCANNED RESULT; Albumin SEE SCANNED RESULT; Creatinine, Random Urine SEE SCANNED RESULT; Gamma Globulin SEE SCANNED RESULT; Interpretation SEE SCANNED RESULT; Protein/Creatinine Ratio SEE SCANNED RESULT
--- NOTE | 2019-05-09 15:55 | Vascular Lab Report ---
DUPLEX DOPPLER LOWER EXTREMITY VEINS, BILATERAL INDICATION: Bilateral lower extremity pain. Possible DVT. TECHNIQUE: Duplex doppler imaging was performed through the veins of both lower extremities using venous angie daysi and other maneuvers. COMPARISON: Bilateral lower extremity venous Doppler from 03/18/2019. FINDINGS: Right Common Femoral vein: Nonocclusive DVT is present. Right Superficial Femoral vein: Nonocclusive DVT is present. Right Popliteal vein: Negative. Right Calf veins: Negative. Left Common Femoral vein: Nonocclusive DVT is present. Left Superficial Femoral vein: Nonocclusive DVT is present. Left Popliteal vein: Negative. Left Calf veins: Negative. Additional findings: Nonocclusive DVT can also be seen along the external iliac veins. IMPRESSION: Bilateral lower extremity DVT as above. The production technologist informed the patient's nurse, Elvia, of these findings by telephone a t 14:26 Eastern standard time. Signer Name: Efrain Cazares MD Signed: 05/09/2019 3:50 PM Workstation Name: [id number]
--- NOTE | 2019-05-09 15:57 | Vascular Lab Report ---
DUPLEX DOPPLER LOWER EXTREMITY ARTERIAL, BILATERAL INDICATION: Decrease in sensation along the lower extremities, left greater than right. Evaluate for peripheral v ascular disease. TECHNIQUE: Arterial duplex examination of both lower extremities performed using B-mode, color flow and spectral Doppler assessment. FINDINGS: RIGHT: Common Femoral Artery: PSV 81 cm/sec. Triphasic waveform. Proximal SFA: PSV 84 cm/sec. Triphasic waveform. Mid SFA: PSV 98 cm/sec. Triphasic waveform. Distal SFA: PSV 80 cm/sec. Triphasic waveform. Popliteal artery: PSV 94 cm/sec. Triphasic waveform. Posterior tibial artery: PSV 83 cm/sec. Triphasic waveform. Dorsalis Pedis Artery: PSV 112 cm/sec. Triphasic waveform. LEFT: Common Femoral Artery: PSV 80 cm/sec. Triphasic waveform. Proximal SFA: PSV 87 cm/sec. Triphasic waveform. Mid SFA: PSV 95 cm/sec. Triphasic waveform. Distal SFA: PSV 90 cm/sec. Triphasic waveform. Popliteal artery: PSV 76 cm/sec. Triphasic waveform. Posterior tibial artery: PSV 73 cm/sec. Triphasic waveform. Dorsalis Pedis Artery: PSV 103 cm/sec. Triphasic waveform. IMPRESSION: No significant lower extremity peripheral artery disease. Signer Name: Efrain Cazares MD Signed: 05/09/2019 3:53 PM Workstation Name: [id number]
--- NOTE | 2019-05-09 18:24 | Progress Note ---
Assessment and Plan Patient awake and more oriented. patient counselled on using O2 as needed for shortness of breath.. O2 saturation is 99% on room air. No acute respiratory distress. Patient afebrile and has leukocytosis. Patients heart rate and blood pressure running good. Patients calcium still high, 10.6. Patient receiving normal saline. Patient has debridement odf wound on left hand. Patient has venous doppler studies of legs, reported DVT.Patient says he is going for cath tomorrow. Recommend to start anticoagulation as soon as he finished cath.. . - Patient Problems (1) Acute respiratory failure Current Visit: Yes Status: Resolved Qualifiers: Respiratory failure complication: hypoxia Qualified Code(s): J96.01 - Acute respiratory failure with hypoxia Plan to address problem: O2 2L as needed for shortness of breath or desaturation. Albuterol/atrovent aerosol treatments q 6 hours. Continue Prevacid. Recommend to start on anticoagulation as soon as he finished cath tomorrow. (2) Altered mental status Current Visit: Yes Status: Acute Qualifiers: Altered mental status type: unspecified Qualified Code(s): R41.82 - Altered mental status, unspecified Plan to address problem: Management as per primary care and neurology. (3) Atrial fibrillation with RVR Current Visit: Yes Status: Acute Plan to address problem: Management as per cardiology. (4) Cardiopulmonary arrest Current Visit: Yes Status: Acute Plan to address problem: Patient resuscitated. Presently resting on room air. O2 saturation 95%.. (5) Acute renal failure Current Visit: Yes Status: Acute Qualifiers: Acute renal failure type: with acute tubular necrosis Qualified Code(s): N17.0 - Acute kidney failure with tubular necrosis Plan to address problem: Management as per nephrology. (6) Aspiration pneumonia Current Visit: Yes Status: Acute Qualifiers: Aspiration pneumonia type: unspecified Plan to address problem: Patient treated with Azactam and zyvox. (7) GI bleed Current Visit: Yes Status: Acute Plan to address problem: Management as per gastroenterology. (8) DVT (deep venous thrombosis) Current Visit: Yes Status: Acute Plan to address problem: Venous doppler studies of legs reported DVT. Recommend to start on anticoagulation as soon as he finished cardiac cath t omorrow. Subjective Date of service: 05/09/19 Principal diagnosis: Anemia - DVT rt IJ, GI bleeding Interval history: Patient awake and more oriented. patient counselled on using O2 as needed for shortness of breath.. O2 saturation is 99% on room air. No acute respiratory distress. Patient afebrile and has leukocytosis. Patients heart rate and blood pressure running good. Patients calcium still high, 10.6. Patient receiving normal saline. Patient has debridement odf wound on left hand. Patient has venous doppler studies of legs, reported DVT.Patient says he is going for cath tomorrow. Recommend to start anticoagulation as soon as he finished cath. Objective Vital Signs - 12hr 05/09/19 05/09/19 05/09/19 11:21 11:35 16:49 Temperature 98.4 F 98.0 F Pulse Rate 79 81 70 Respiratory 20 18 Rate Blood Pressure 134/81 138/88 133/84 O2 Sat by Pulse 99 99 Oximetry 05/09/19 16:55 Temperature Pulse Rate 71 Respiratory Rate Blood Pressure 133/84 O2 Sat by Pulse Oximetry Constitutional: no acute distress, alert, other (middle aged morbidly obese CM, normocephalic with mildly incresed respiratory effort at rest) Eyes: non-icteric ENT: oropharynx moist, other (extubated) Neck: supple, no lymphadenopathy, no JVD, other (large neck circumference) Effort: mildly labored Ascultation: Bilateral: diminished breath sounds, rales, rhonchi (scant) Percussion: Bilateral: not dull Cardiovascular: regular rate and rhythm, other ( S1,S2) Gastrointestinal: normoactive bowel sounds, soft, non-tender, non-distended, other (obese) Integumentary: normal Extremities: no cyanosis, pink and warm, pulses normal, no ischemia or petechiae Neurologic: normal mental status, non-focal exam (grossly), pupils equal and round, CN II-XII normal, other (very weak) Psychiatric: mood appropriate, affect normal CBC and BMP: 05/09/19 05:41 05/09/19 05:41 ABG, PT/INR, D-dimer: ABG POC ABG pH 7.401 (7.35-7.45) 04/07/19 12:57 ABG pH 7.388 pH Units (7.350-7.450) 04/06/19 05:20 POC ABG pCO2 41.5 (35-45) 04/07/19 12:57 ABG pCO2 38.5 mm Hg 04/06/19 05:20 POC ABG pO2 107 (80-105) H 04/07/19 12:57 ABG pO2 104.0 mm Hg (80.0-90.0) H 04/06/19 05:20 POC ABG HCO3 25.7 (22-26 mml/L) 04/07/19 12:57 POC ABG Total CO2 27 (23-27mmol/L) 04/07/19 12:57 POC ABG O2 Sat 98 04/07/19 12:57 ABG O2 Saturation 97.8 % (95.0-99.0) 04/06/19 05:20 PT/INR, D-dimer PT 14.2 Sec. (12.2-14.9) 05/07/19 05:55 INR 1.11 (0.87-1.13) 05/07/19 05:55 D-Dimer 4845.98 ng/mlDDU (0-234) H 03/28/19 12:00 Abnormal lab findings: Abnormal Labs 03/16/19 03/16/19 03/16/19 15:32 16:03 16:05 WBC 27.0 H RBC 5.55 H Hgb 15.7 H Hct 47.1 H MCV MCH MCHC RDW Plt Count 75 L Lymph % (Auto) [place] % (Auto) Eos % (Auto) Lymph # [place] # Eos # Seg Neutrophils % Seg Neuts % (Manual) 85.0 H Lymphocytes % (Manual) 2.0 L Monocytes % (Manual) Nucleated RBC % Seg Neutrophils # Seg Neutrophils # Man 23.0 H Lymphocytes # (Manual) 0.5 L Monocytes # (Manual) PT INR D-Dimer Heparin Anti-Xa Level POC ABG pH ABG pH POC ABG pCO2 POC ABG pO2 ABG pO2 ABG HCO3 ABG O2 Saturation ABG Base Excess ABG Hemoglobin Oxyhemoglobin Sodium 127 L Potassium Chloride 87.8 L Carbon Dioxide 17 L BUN 49 H Creatinine 5.8 H Glucose 150 H POC Glucose 118 H Lactic Acid Calcium 6.6 L Ionized Calcium Phosphorus Magnesium 1.10 L Iron TIBC Ferritin Total Bilirubin Direct Bilirubin AST ALT Alkaline Phosphatase Total Creatine Kinase 25167 H CK-MB (CK-2) Troponin T C-Reactive Protein Serum Total Protein Total Protein Albumin Qikex-0-Bxqlmzaxg Nmxfm-6-Qoxeumakn PEP Interpretation Triglycerides LDL Cholesterol Direct HDL Cholesterol Free T4 PTH Intact Urine WBC (Auto) Urine Creatinine Salicylates Acetaminophen Crossmatch 03/16/19 03/16/19 03/16/19 16:59 17:05 17:05 WBC RBC Hgb Hct MCV MCH MCHC RDW Plt Count Lymph % (Auto) [place] % (Auto) Eos % (Auto) Lymph # [place] # Eos # Seg Neutrophils % Seg Neuts % (Manual) Lymphocytes % (Manual) Monocytes % (Manual) Nucleated RBC % Seg Neutrophils # Seg Neutrophils # Man Lymphocytes # (Manual) Monocytes # (Manual) PT INR D-Dimer Heparin Anti-Xa Level POC ABG pH 7.297 L ABG pH POC ABG pCO2 33.0 L POC ABG pO2 ABG pO2 ABG HCO3 ABG O2 Saturation ABG Base Excess ABG Hemoglobin Oxyhemoglobin Sodium Potassium Chloride Carbon Dioxide BUN Creatinine Glucose POC Glucose Lactic Acid Calcium Ionized Calcium Phosphorus Magnesium Iron TIBC Ferritin Total Bilirubin Direct Bilirubin AST ALT Alkaline Phosphatase Total Creatine Kinase 00227 H CK-MB (CK-2) 83.1 H Troponin T C-Reactive Protein Serum Total Protein Total Protein Albumin Ijzpi-5-Ufsemitvm Lfepf-0-Vlgzijtnd PEP Interpretation Triglycerides LDL Cholesterol Direct HDL Cholesterol Free T4 0.72 L PTH Intact Urine WBC (Auto) Urine Creatinine Salicylates Acetaminophen Crossmatch 03/16/19 03/16/19 03/16/19 17:05 17:05 17:05 WBC RBC Hgb Hct MCV MCH MCHC RDW Plt Count Lymph % (Auto) [place] % (Auto) Eos % (Auto) Lymph # [place] # Eos # Seg Neutrophils % Seg Neuts % (Manual) Lymphocytes % (Manual) Monocytes % (Manual) Nucleated RBC % Seg Neutrophils # Seg Neutrophils # Man Lymphocytes # (Manual) Monocytes # (Manual) PT INR D-Dimer Heparin Anti-Xa Level POC ABG pH ABG pH POC ABG pCO2 POC ABG pO2 ABG pO2 ABG HCO3 ABG O2 Saturation ABG Base Excess ABG Hemoglobin Oxyhemoglobin Sodium Potassium Chloride Carbon Dioxide BUN Creatinine Glucose POC Glucose Lactic Acid 5.10 H* Calcium Ionized Calcium Phosphorus Magnesium Iron TIBC Ferritin Total Bilirubin Direct Bilirubin AST ALT Alkaline Phosphatase Total Creatine Kinase CK-MB (CK-2) Troponin T C-Reactive Protein Serum Total Protein Total Protein Albumin Pawaz-7-Hcidnyqab Gtpbv-7-Yevsaykgp PEP Interpretation Triglycerides LDL Cholesterol Direct HDL Cholesterol Free T4 PTH Intact Urine WBC (Auto) Urine Creatinine Salicylates < 0.3 L Acetaminophen < 5.0 L Crossmatch 03/16/19 03/16/19 03/16/19 17:05 17:05 20:35 WBC RBC Hgb Hct MCV MCH MCHC RDW Plt Count Lymph % (Auto) [place] % (Auto) Eos % (Auto) Lymph # [place] # Eos # Seg Neutrophils % Seg Neuts % (Manual) Lymphocytes % (Manual) Monocytes % (Manual) Nucleated RBC % Seg Neutrophils # Seg Neutrophils # Man Lymphocytes # (Manual) Monocytes # (Manual) PT 15.9 H INR 1.30 H D-Dimer Heparin Anti-Xa Level POC ABG pH ABG pH POC ABG pCO2 POC ABG pO2 ABG pO2 ABG HCO3 ABG O2 Saturation ABG Base Excess ABG Hemoglobin Oxyhemoglobin Sodium Potassium Chloride Carbon Dioxide BUN Creatinine Glucose POC Glucose Lactic Acid 3.30 H* Calcium Ionized Calcium Phosphorus Magnesium Iron TIBC Ferritin Total Bilirubin 6.20 H Direct Bilirubin 5.9 H AST 800 H ALT 120 H Alkaline Phosphatase Total Creatine Kinase CK-MB (CK-2) Troponin T C-Reactive Protein Serum Total Protein Total Protein 4.4 L Albumin 2.4 L Ftcup-8-Wtxsdscpz Idkmo-4-Siekmkyyi PEP Interpretation Triglycerides LDL Cholesterol Direct HDL Cholesterol Free T4 PTH Intact Urine WBC (Auto) Urine Creatinine Salicylates Acetaminophen Crossmatch 03/16/19 03/16/19 03/16/19 21:45 22:32 Unknown WBC RBC Hgb Hct MCV MCH MCHC RDW Plt Count Lymph % (Auto) [place] % (Auto) Eos % (Auto) Lymph # [place] # Eos # Seg Neutrophils % Seg Neuts % (Manual) Lymphocytes % (Manual) Monocytes % (Manual) Nucleated RBC % Seg Neutrophils # Seg Neutrophils # Man Lymphocytes # (Manual) Monocytes # (Manual) PT INR D-Dimer Heparin Anti-Xa Level POC ABG pH ABG pH POC ABG pCO2 POC ABG pO2 ABG pO2 ABG HCO3 ABG O2 Saturation ABG Base Excess ABG Hemoglobin Oxyhemoglobin Sodium Potassium Chloride Carbon Dioxide BUN Creatinine Glucose POC Glucose Lactic Acid 3.30 H* 3.00 H* Calcium Ionized Calcium Phosphorus Magnesium Iron TIBC Ferritin Total Bilirubin Direct Bilirubin AST ALT Alkaline Phosphatase Total Creatine Kinase CK-MB (CK-2) Troponin T 0.047 H D C-Reactive Protein Serum Total Protein Total Protein Albumin Yckes-4-Vykuonnth Zhjpd-1-Cukedrnnp PEP Interpretation Triglycerides 395 H LDL Cholesterol Direct 10 L HDL Cholesterol 7 L Free T4 PTH Intact Urine WBC (Auto) Urine Creatinine Salicylates Acetaminophen Crossmatch 03/17/19 03/17/19 03/17/19 03:45 03:45 03:45 WBC RBC Hgb Hct MCV MCH MCHC RDW Plt Count Lymph % (Auto) [place] % (Auto) Eos % (Auto) Lymph # [place] # Eos # Seg Neutrophils % Seg Neuts % (Manual) Lymphocytes % (Manual) Monocytes % (Manual) Nucleated RBC % Seg Neutrophils # Seg Neutrophils # Man Lymphocytes # (Manual) Monocytes # (Manual) PT INR D-Dimer Heparin Anti-Xa Level POC ABG pH ABG pH POC ABG pCO2 POC ABG pO2 ABG pO2 ABG HCO3 ABG O2 Saturation ABG Base Excess ABG Hemoglobin Oxyhemoglobin Sodium 131 L Potassium Chloride 88.9 L Carbon Dioxide BUN 53 H Creatinine 7.1 H Glucose POC Glucose Lactic Acid 4.10 H* Calcium 5.4 L* D Ionized Calcium Phosphorus 7.30 H Magnesium 1.60 L Iron TIBC Ferritin Total Bilirubin 5.90 H Direct Bilirubin AST 801 H ALT 109 H Alkaline Phosphatase Total Creatine Kinase 42887 H 93646 H CK-MB (CK-2) 41.5 H Troponin T 0.054 H C-Reactive Protein Serum Total Protein Total Protein 4.5 L Albumin 2.0 L Krbzx-0-Hnmzaqnoy Qpurj-3-Lgkhqajrr PEP Interpretation Triglycerides LDL Cholesterol Direct HDL Cholesterol Free T4 PTH Intact Urine WBC (Auto) Urine Creatinine Salicylates Acetaminophen Crossmatch 03/17/19 03/17/19 03/17/19 05:47 07:16 07:16 WBC RBC Hgb Hct MCV MCH MCHC RDW Plt Count Lymph % (Auto) [place] % (Auto) Eos % (Auto) Lymph # [place] # Eos # Seg Neutrophils % Seg Neuts % (Manual) Lymphocytes % (Manual) Monocytes % (Manual) Nucleated RBC % Seg Neutrophils # Seg Neutrophils # Man Lymphocytes # (Manual) Monocytes # (Manual) PT INR D-Dimer Heparin Anti-Xa Level POC ABG pH 7.193 L ABG pH POC ABG pCO2 45.2 H POC ABG pO2 65 L ABG pO2 ABG HCO3 ABG O2 Saturation ABG Base Excess ABG Hemoglobin Oxyhemoglobin Sodium Potassium Chloride Carbon Dioxide BUN Creatinine Glucose POC Glucose Lactic Acid 5.50 H* Calcium Ionized Calcium Phosphorus Magnesium Iron TIBC Ferritin Total Bilirubin Direct Bilirubin AST ALT Alkaline Phosphatase Total Creatine Kinase 09382 H CK-MB (CK-2) 54.3 H Troponin T 0.058 H C-Reactive Protein Serum Total Protein Total Protein Albumin Txcbe-7-Qnlnswiqg Eaitp-2-Mqskpqljj PEP Interpretation Triglycerides LDL Cholesterol Direct HDL Cholesterol Free T4 PTH Intact Urine WBC (Auto) Urine Creatinine Salicylates Acetaminophen Crossmatch 03/17/19 03/17/19 03/17/19 11:52 12:51 13:01 WBC RBC Hgb Hct MCV MCH MCHC RDW Plt Count Lymph % (Auto) [place] % (Auto) Eos % (Auto) Lymph # [place] # Eos # Seg Neutrophils % Seg Neuts % (Manual) Lymphocytes % (Manual) Monocytes % (Manual) Nucleated RBC % Seg Neutrophils # Seg Neutrophils # Man Lymphocytes # (Manual) Monocytes # (Manual) PT INR D-Dimer Heparin Anti-Xa Level POC ABG pH 7.154 L ABG pH POC ABG pCO2 34.3 L POC ABG pO2 73 L ABG pO2 ABG HCO3 ABG O2 Saturation ABG Base Excess ABG Hemoglobin Oxyhemoglobin Sodium Potassium Chloride Carbon Dioxide BUN Creatinine Glucose POC Glucose 60 L Lactic Acid 8.20 H* Calcium Ionized Calcium Phosphorus Magnesium Iron TIBC Ferritin Total Bilirubin Direct Bilirubin AST ALT Alkaline Phosphatase Total Creatine Kinase CK-MB (CK-2) Troponin T C-Reactive Protein Serum Total Protein Total Protein Albumin Xuxew-7-Ajueirbek Catyt-1-Mopgwqdnk PEP Interpretation Triglycerides LDL Cholesterol Direct HDL Cholesterol Free T4 PTH Intact Urine WBC (Auto) Urine Creatinine Salicylates Acetaminophen Crossmatch 03/17/19 03/17/19 03/17/19 14:37 14:37 14:37 WBC 29.3 H RBC Hgb Hct MCV MCH MCHC RDW 15.8 H Plt Count 45 L Lymph % (Auto) [place] % (Auto) Eos % (Auto) Lymph # [place] # Eos # Seg Neutrophils % Seg Neuts % (Manual) 81.0 H Lymphocytes % (Manual) 1.0 L Monocytes % (Manual) 15.0 H Nucleated RBC % Seg Neutrophils # Seg Neutrophils # Man 23.7 H Lymphocytes # (Manual) 0.3 L Monocytes # (Manual) 4.4 H PT INR D-Dimer Heparin Anti-Xa Level POC ABG pH ABG pH POC ABG pCO2 POC ABG pO2 ABG pO2 ABG HCO3 ABG O2 Saturation ABG Base Excess ABG Hemoglobin Oxyhemoglobin Sodium Potassium Chloride Carbon Dioxide BUN Creatinine Glucose POC Glucose Lactic Acid 4.90 H* Calcium Ionized Calcium Phosphorus Magnesium Iron TIBC Ferritin Total Bilirubin Direct Bilirubin AST ALT Alkaline Phosphatase Total Creatine Kinase CK-MB (CK-2) Troponin T C-Reactive Protein 24.90 H Serum Total Protein Total Protein Albumin Kkafx-1-Jvevacode Zgsfl-8-Iygkvofhs PEP Interpretation Triglycerides LDL Cholesterol Direct HDL Cholesterol Free T4 PTH Intact Urine WBC (Auto) Urine Creatinine Salicylates Acetaminophen Crossmatch 03/17/19 03/17/19 03/17/19 16:05 16:05 17:02 WBC RBC Hgb Hct MCV MCH MCHC RDW Plt Count Lymph % (Auto) [place] % (Auto) Eos % (Auto) Lymph # [place] # Eos # Seg Neutrophils % Seg Neuts % (Manual) Lymphocytes % (Manual) Monocytes % (Manual) Nucleated RBC % Seg Neutrophils # Seg Neutrophils # Man Lymphocytes # (Manual) Monocytes # (Manual) PT INR D-Dimer Heparin Anti-Xa Level POC ABG pH 7.183 L ABG pH POC ABG pCO2 POC ABG pO2 65 L ABG pO2 ABG HCO3 ABG O2 Saturation ABG Base Excess ABG Hemoglobin Oxyhemoglobin Sodium Potassium Chloride Carbon Dioxide BUN Creatinine Glucose POC Glucose Lactic Acid Calcium Ionized Calcium Phosphorus Magnesium Iron TIBC Ferritin Total Bilirubin Direct Bilirubin AST ALT Alkaline Phosphatase Total Creatine Kinase CK-MB (CK-2) Troponin T C-Reactive Protein Serum Total Protein Total Protein Albumin Nwrco-3-Lhonppvav Toqan-9-Kgtlheqmo PEP Interpretation Triglycerides LDL Cholesterol Direct HDL Cholesterol Free T4 PTH Intact Urine WBC (Auto) 30.0 H Urine Creatinine 106.6 H Salicylates Acetaminophen Crossmatch 03/18/19 03/18/19 03/18/19 05:12 05:16 05:53 WBC RBC Hgb Hct MCV MCH MCHC RDW Plt Count Lymph % (Auto) [place] % (Auto) Eos % (Auto) Lymph # [place] # Eos # Seg Neutrophils % Seg Neuts % (Manual) Lymphocytes % (Manual) Monocytes % (Manual) Nucleated RBC % Seg Neutrophils # Seg Neutrophils # Man Lymphocytes # (Manual) Monocytes # (Manual) PT INR D-Dimer Heparin Anti-Xa Level POC ABG pH 7.257 L ABG pH POC ABG pCO2 31.6 L POC ABG pO2 69 L ABG pO2 ABG HCO3 ABG O2 Saturation ABG Base Excess ABG Hemoglobin Oxyhemoglobin Sodium Potassium Chloride Carbon Dioxide BUN Creatinine Glucose POC Glucose 141 H Lactic Acid 5.00 H* Calcium Ionized Calcium Phosphorus Magnesium Iron TIBC Ferritin Total Bilirubin Direct Bilirubin AST ALT Alkaline Phosphatase Total Creatine Kinase CK-MB (CK-2) Troponin T C-Reactive Protein Serum Total Protein Total Protein Albumin Ebnnh-3-Tganpuxuw Ubnpq-5-Gpuvlnisy PEP Interpretation Triglycerides LDL Cholesterol Direct HDL Cholesterol Free T4 PTH Intact Urine WBC (Auto) Urine Creatinine Salicylates Acetaminophen Crossmatch 03/18/19 03/18/19 03/18/19 06:57 08:40 08:40 WBC 31.7 H RBC Hgb Hct MCV MCH MCHC RDW 15.5 H Plt Count 35 L Lymph % (Auto) [place] % (Auto) Eos % (Auto) Lymph # [place] # Eos # Seg Neutrophils % Seg Neuts % (Manual) Lymphocytes % (Manual) Monocytes % (Manual) Nucleated RBC % Seg Neutrophils # Seg Neutrophils # Man Lymphocytes # (Manual) Monocytes # (Manual) PT INR D-Dimer Heparin Anti-Xa Level POC ABG pH ABG pH POC ABG pCO2 POC ABG pO2 ABG pO2 ABG HCO3 ABG O2 Saturation ABG Base Excess ABG Hemoglobin Oxyhemoglobin Sodium 132 L Potassium 5.5 H D Chloride 88.5 L Carbon Dioxide 18 L BUN 71 H Creatinine 8.1 H Glucose 205 H POC Glucose Lactic Acid 5.00 H* Calcium 4.1 L* D Ionized Calcium Phosphorus Magnesium 2.40 H Iron TIBC Ferritin Total Bilirubin 7.50 H Direct Bilirubin AST 1088 H ALT 159 H Alkaline Phosphatase 190 H Total Creatine Kinase 974134 H CK-MB (CK-2) Troponin T C-Reactive Protein Serum Total Protein Total Protein 4.7 L Albumin 1.8 L Pttmy-7-Khlubhgkt Xgale-9-Hltdvcmmv PEP Interpretation Triglycerides LDL Cholesterol Direct HDL Cholesterol Free T4 PTH Intact Urine WBC (Auto) Urine Creatinine Salicylates Acetaminophen Crossmatch 03/18/19 03/18/19 03/18/19 12:33 12:50 13:19 WBC RBC Hgb Hct MCV MCH MCHC RDW Plt Count Lymph % (Auto) [place] % (Auto) Eos % (Auto) Lymph # [place] # Eos # Seg Neutrophils % Seg Neuts % (Manual) Lymphocytes % (Manual) Monocytes % (Manual) Nucleated RBC % Seg Neutrophils # Seg Neutrophils # Man Lymphocytes # (Manual) Monocytes # (Manual) PT INR D-Dimer Heparin Anti-Xa Level POC ABG pH 7.282 L ABG pH POC ABG pCO2 POC ABG pO2 67 L ABG pO2 ABG HCO3 ABG O2 Saturation ABG Base Excess ABG Hemoglobin Oxyhemoglobin Sodium Potassium Chloride Carbon Dioxide BUN Creatinine Glucose POC Glucose 129 H Lactic Acid 3.30 H* Calcium Ionized Calcium Phosphorus Magnesium Iron TIBC Ferritin Total Bilirubin Direct Bilirubin AST ALT Alkaline Phosphatase Total Creatine Kinase CK-MB (CK-2) Troponin T C-Reactive Protein Serum Total Protein Total Protein Albumin Gezir-8-Gazzetikm Nfipc-9-Sejrdvonu PEP Interpretation Triglycerides LDL Cholesterol Direct HDL Cholesterol Free T4 PTH Intact Urine WBC (Auto) Urine Creatinine Salicylates Acetaminophen Crossmatch 03/18/19 03/18/19 03/18/19 13:19 16:50 18:11 WBC RBC Hgb Hct MCV MCH MCHC RDW Plt Count Lymph % (Auto) [place] % (Auto) Eos % (Auto) Lymph # [place] # Eos # Seg Neutrophils % Seg Neuts % (Manual) Lymphocytes % (Manual) Monocytes % (Manual) Nucleated RBC % Seg Neutrophils # Seg Neutrophils # Man Lymphocytes # (Manual) Monocytes # (Manual) PT INR D-Dimer Heparin Anti-Xa Level POC ABG pH ABG pH POC ABG pCO2 POC ABG pO2 59 L ABG pO2 ABG HCO3 ABG O2 Saturation ABG Base Excess ABG Hemoglobin Oxyhemoglobin Sodium Potassium Chloride Carbon Dioxide BUN Creatinine Glucose POC Glucose 151 H Lactic Acid Calcium 4.2 L* Ionized Calcium Phosphorus Magnesium Iron TIBC Ferritin Total Bilirubin Direct Bilirubin AST ALT Alkaline Phosphatase Total Creatine Kinase 160890 H CK-MB (CK-2) Troponin T C-Reactive Protein Serum Total Protein Total Protein Albumin Egjhk-0-Bbzmsueng Pfkpm-7-Aqyvdkrix PEP Interpretation Triglycerides LDL Cholesterol Direct HDL Cholesterol Free T4 PTH Intact Urine WBC (Auto) Urine Creatinine Salicylates Acetaminophen Crossmatch 03/18/19 03/18/19 03/19/19 18:20 23:39 01:42 WBC RBC Hgb Hct MCV MCH MCHC RDW Plt Count Lymph % (Auto) [place] % (Auto) Eos % (Auto) Lymph # [place] # Eos # Seg Neutrophils % Seg Neuts % (Manual) Lymphocytes % (Manual) Monocytes % (Manual) Nucleated RBC % Seg Neutrophils # Seg Neutrophils # Man Lymphocytes # (Manual) Monocytes # (Manual) PT INR D-Dimer Heparin Anti-Xa Level POC ABG pH 7.345 L ABG pH 7.285 L POC ABG pCO2 POC ABG pO2 59 L ABG pO2 44.0 L ABG HCO3 ABG O2 Saturation 70.9 L ABG Base Excess -5.7 L ABG Hemoglobin 11.9 L Oxyhemoglobin 69.6 L Sodium Potassium Chloride Carbon Dioxide BUN Creatinine Glucose POC Glucose 152 H Lactic Acid Calcium Ionized Calcium Phosphorus Magnesium Iron TIBC Ferritin Total Bilirubin Direct Bilirubin AST ALT Alkaline Phosphatase Total Creatine Kinase CK-MB (CK-2) Troponin T C-Reactive Protein Serum Total Protein Total Protein Albumin Rglsr-4-Doehheixd Vjnqc-7-Rsaetedvg PEP Interpretation Triglycerides LDL Cholesterol Direct HDL Cholesterol Free T4 PTH Intact Urine WBC (Auto) Urine Creatinine Salicylates Acetaminophen Crossmatch 03/19/19 03/19/19 03/19/19 04:00 04:00 05:35 WBC 36.5 H RBC Hgb Hct MCV MCH MCHC RDW 15.8 H Plt Count 35 L Lymph % (Auto) [place] % (Auto) Eos % (Auto) Lymph # [place] # Eos # Seg Neutrophils % Seg Neuts % (Manual) Lymphocytes % (Manual) Monocytes % (Manual) Nucleated RBC % Seg Neutrophils # Seg Neutrophils # Man Lymphocytes # (Manual) Monocytes # (Manual) PT INR D-Dimer Heparin Anti-Xa Level POC ABG pH ABG pH 7.265 L POC ABG pCO2 POC ABG pO2 ABG pO2 35.4 L* ABG HCO3 ABG O2 Saturation 54.4 L ABG Base Excess -6.7 L ABG Hemoglobin 12.9 L Oxyhemoglobin 53.4 L Sodium 132 L Potassium 5.7 H Chloride 89.8 L Carbon Dioxide 19 L BUN 62 H Creatinine 6.4 H Glucose 151 H POC Glucose Lactic Acid Calcium 5.2 L* D Ionized Calcium Phosphorus Magnesium Iron TIBC Ferritin Total Bilirubin 7.80 H Direct Bilirubin AST 682 H ALT 130 H Alkaline Phosphatase 167 H Total Creatine Kinase CK-MB (CK-2) Troponin T C-Reactive Protein Serum Total Protein Total Protein 4.8 L Albumin 2.3 L Yozkk-9-Uefhctmgb Acfta-2-Gnlovgkwd PEP Interpretation Triglycerides LDL Cholesterol Direct HDL Cholesterol Free T4 PTH Intact Urine WBC (Auto) Urine Creatinine Salicylates Acetaminophen Crossmatch 03/19/19 03/19/19 03/19/19 05:49 09:16 09:50 WBC RBC Hgb Hct MCV MCH MCHC RDW Plt Count Lymph % (Auto) [place] % (Auto) Eos % (Auto) Lymph # [place] # Eos # Seg Neutrophils % Seg Neuts % (Manual) Lymphocytes % (Manual) Monocytes % (Manual) Nucleated RBC % Seg Neutrophils # Seg Neutrophils # Man Lymphocytes # (Manual) Monocytes # (Manual) PT INR D-Dimer Heparin Anti-Xa Level POC ABG pH 7.222 L ABG pH POC ABG pCO2 56.6 H POC ABG pO2 ABG pO2 ABG HCO3 ABG O2 Saturation ABG Base Excess ABG Hemoglobin Oxyhemoglobin Sodium Potassium Chloride Carbon Dioxide BUN Creatinine Glucose POC Glucose 154 H Lactic Acid 2.70 H* Calcium Ionized Calcium Phosphorus Magnesium Iron TIBC Ferritin Total Bilirubin Direct Bilirubin AST ALT Alkaline Phosphatase Total Creatine Kinase CK-MB (CK-2) Troponin T C-Reactive Protein Serum Total Protein Total Protein Albumin Rdqzb-7-Dftrqrilq Hcpqk-6-Afdypudjr PEP Interpretation Triglycerides LDL Cholesterol Direct HDL Cholesterol Free T4 PTH Intact Urine WBC (Auto) Urine Creatinine Salicylates Acetaminophen Crossmatch 03/19/19 03/19/19 03/19/19 09:50 11:28 17:58 WBC RBC Hgb Hct MCV MCH MCHC RDW Plt Count Lymph % (Auto) [place] % (Auto) Eos % (Auto) Lymph # [place] # Eos # Seg Neutrophils % Seg Neuts % (Manual) Lymphocytes % (Manual) Monocytes % (Manual) Nucleated RBC % Seg Neutrophils # Seg Neutrophils # Man Lymphocytes # (Manual) Monocytes # (Manual) PT INR D-Dimer Heparin Anti-Xa Level POC ABG pH 7.250 L ABG pH POC ABG pCO2 52.6 H POC ABG pO2 ABG pO2 ABG HCO3 ABG O2 Saturation ABG Base Excess ABG Hemoglobin Oxyhemoglobin Sodium Potassium Chloride Carbon Dioxide BUN Creatinine Glucose POC Glucose 160 H Lactic Acid Calcium Ionized Calcium Phosphorus Magnesium Iron TIBC Ferritin Total Bilirubin Direct Bilirubin AST ALT Alkaline Phosphatase Total Creatine Kinase 44120 H CK-MB (CK-2) Troponin T C-Reactive Protein Serum Total Protein Total Protein Albumin Emqap-1-Yksgpajvw Mgdef-7-Fwsckchfu PEP Interpretation Triglycerides LDL Cholesterol Direct HDL Cholesterol Free T4 PTH Intact Urine WBC (Auto) Urine Creatinine Salicylates Acetaminophen Crossmatch 03/19/19 03/19/19 03/20/19 19:48 21:03 02:16 WBC RBC Hgb Hct MCV MCH MCHC RDW Plt Count Lymph % (Auto) [place] % (Auto) Eos % (Auto) Lymph # [place] # Eos # Seg Neutrophils % Seg Neuts % (Manual) Lymphocytes % (Manual) Monocytes % (Manual) Nucleated RBC % Seg Neutrophils # Seg Neutrophils # Man Lymphocytes # (Manual) Monocytes # (Manual) PT INR D-Dimer Heparin Anti-Xa Level POC ABG pH 7.279 L ABG pH POC ABG pCO2 50.3 H POC ABG pO2 129 H ABG pO2 ABG HCO3 ABG O2 Saturation ABG Base Excess ABG Hemoglobin Oxyhemoglobin Sodium Potassium Chloride Carbon Dioxide BUN Creatinine Glucose POC Glucose 119 H 119 H Lactic Acid Calcium Ionized Calcium Phosphorus Magnesium Iron TIBC Ferritin Total Bilirubin Direct Bilirubin AST ALT Alkaline Phosphatase Total Creatine Kinase CK-MB (CK-2) Troponin T C-Reactive Protein Serum Total Protein Total Protein Albumin Qgcck-6-Qmghznebb Smiaq-4-Opxlagpxa PEP Interpretation Triglycerides LDL Cholesterol Direct HDL Cholesterol Free T4 PTH Intact Urine WBC (Auto) Urine Creatinine Salicylates Acetaminophen Crossmatch 03/20/19 03/20/19 03/20/19 04:23 05:05 09:30 WBC 36.3 H RBC Hgb Hct MCV MCH MCHC RDW 15.5 H Plt Count 29 L Lymph % (Auto) [place] % (Auto) Eos % (Auto) Lymph # [place] # Eos # Seg Neutrophils % Seg Neuts % (Manual) Lymphocytes % (Manual) Monocytes % (Manual) Nucleated RBC % Seg Neutrophils # Seg Neutrophils # Man Lymphocytes # (Manual) Monocytes # (Manual) PT INR D-Dimer Heparin Anti-Xa Level POC ABG pH ABG pH POC ABG pCO2 POC ABG pO2 280 H ABG pO2 ABG HCO3 ABG O2 Saturation ABG Base Excess ABG Hemoglobin Oxyhemoglobin Sodium Potassium Chloride Carbon Dioxide BUN Creatinine Glucose POC Glucose 115 H Lactic Acid Calcium Ionized Calcium Phosphorus Magnesium Iron TIBC Ferritin Total Bilirubin Direct Bilirubin AST ALT Alkaline Phosphatase Total Creatine Kinase CK-MB (CK-2) Troponin T C-Reactive Protein Serum Total Protein Total Protein Albumin Bpfey-1-Opazhnoek Aisxr-3-Nutrztsok PEP Interpretation Triglycerides LDL Cholesterol Direct HDL Cholesterol Free T4 PTH Intact Urine WBC (Auto) Urine Creatinine Salicylates Acetaminophen Crossmatch 09/24/19 09/24/19 09/24/19 09:30 09:30 11:34 WBC RBC Hgb Hct MCV MCH MCHC RDW Plt Count Lymph % (Auto) [place] % (Auto) Eos % (Auto) Lymph # [place] # Eos # Seg Neutrophils % Seg Neuts % (Manual) Lymphocytes % (Manual) Monocytes % (Manual) Nucleated RBC % Seg Neutrophils # Seg Neutrophils # Man Lymphocytes # (Manual) Monocytes # (Manual) PT INR D-Dimer Heparin Anti-Xa Level POC ABG pH ABG pH POC ABG pCO2 POC ABG pO2 ABG pO2 ABG HCO3 ABG O2 Saturation ABG Base Excess ABG Hemoglobin Oxyhemoglobin Sodium 131 L Potassium Chloride 92.3 L Carbon Dioxide 20 L BUN 68 H Creatinine 6.1 H Glucose 164 H POC Glucose 141 H Lactic Acid Calcium 5.3 L* Ionized Calcium Phosphorus Magnesium Iron TIBC Ferritin Total Bilirubin 9.50 H Direct Bilirubin AST 381 H ALT 116 H Alkaline Phosphatase 255 H Total Creatine Kinase 79116 H CK-MB (CK-2) Troponin T C-Reactive Protein Serum Total Protein Total Protein 5.1 L Albumin 2.3 L Twzti-9-Yretstqjb Xnhik-4-Dofknecrd PEP Interpretation Triglycerides LDL Cholesterol Direct HDL Cholesterol Free T4 PTH Intact Urine WBC (Auto) Urine Creatinine Salicylates Acetaminophen Crossmatch 03/20/19 03/20/19 03/20/19 14:41 14:45 18:50 WBC RBC Hgb Hct MCV MCH MCHC RDW Plt Count Lymph % (Auto) [place] % (Auto) Eos % (Auto) Lymph # [place] # Eos # Seg Neutrophils % Seg Neuts % (Manual) Lymphocytes % (Manual) Monocytes % (Manual) Nucleated RBC % Seg Neutrophils # Seg Neutrophils # Man Lymphocytes # (Manual) Monocytes # (Manual) PT INR D-Dimer Heparin Anti-Xa Level POC ABG pH ABG pH POC ABG pCO2 POC ABG pO2 ABG pO2 ABG HCO3 ABG O2 Saturation ABG Base Excess ABG Hemoglobin Oxyhemoglobin Sodium Potassium Chloride Carbon Dioxide BUN Creatinine Glucose POC Glucose 117 H Lactic Acid 2.90 H* Calcium Ionized Calcium Phosphorus Magnesium Iron TIBC Ferritin Total Bilirubin Direct Bilirubin AST ALT Alkaline Phosphatase Total Creatine Kinase CK-MB (CK-2) Troponin T C-Reactive Protein 13.30 H Serum Total Protein Total Protein Albumin Zgbhg-4-Wnfrefoch Cuwqe-6-Qgnodafdj PEP Interpretation Triglycerides LDL Cholesterol Direct HDL Cholesterol Free T4 PTH Intact Urine WBC (Auto) Urine Creatinine Salicylates Acetaminophen Crossmatch 03/20/19 03/21/19 03/21/19 21:55 04:26 04:26 WBC 37.8 H RBC Hgb Hct MCV MCH MCHC RDW 15.4 H Plt Count 36 L Lymph % (Auto) [place] % (Auto) Eos % (Auto) Lymph # [place] # Eos # Seg Neutrophils % Seg Neuts % (Manual) 93.0 H Lymphocytes % (Manual) 3.0 L Monocytes % (Manual) Nucleated RBC % 1.0 H Seg Neutrophils # 34.6 H Seg Neutrophils # Man 35.2 H Lymphocytes # (Manual) 1.1 L Monocytes # (Manual) PT INR D-Dimer Heparin Anti-Xa Level POC ABG pH ABG pH POC ABG pCO2 POC ABG pO2 ABG pO2 ABG HCO3 ABG O2 Saturation ABG Base Excess ABG Hemoglobin Oxyhemoglobin Sodium 131 L Potassium Chloride 90.7 L Carbon Dioxide 21 L BUN 69 H Creatinine 5.7 H Glucose 170 H POC Glucose 128 H Lactic Acid Calcium 6.1 L D Ionized Calcium Phosphorus Magnesium Iron TIBC Ferritin Total Bilirubin 9.50 H Direct Bilirubin AST 308 H ALT 124 H Alkaline Phosphatase 327 H Total Creatine Kinase 72283 H CK-MB (CK-2) Troponin T C-Reactive Protein Serum Total Protein Total Protein 5.7 L Albumin 2.6 L Duzbl-0-Iialpkash Pdgvn-0-Cganahezy PEP Interpretation Triglycerides LDL Cholesterol Direct HDL Cholesterol Free T4 PTH Intact Urine WBC (Auto) Urine Creatinine Salicylates Acetaminophen Crossmatch 03/21/19 03/21/19 03/21/19 05:17 05:39 08:29 WBC RBC Hgb Hct MCV MCH MCHC RDW Plt Count Lymph % (Auto) [place] % (Auto) Eos % (Auto) Lymph # [place] # Eos # Seg Neutrophils % Seg Neuts % (Manual) Lymphocytes % (Manual) Monocytes % (Manual) Nucleated RBC % Seg Neutrophils # Seg Neutrophils # Man Lymphocytes # (Manual) Monocytes # (Manual) PT INR D-Dimer Heparin Anti-Xa Level POC ABG pH ABG pH POC ABG pCO2 POC ABG pO2 209 H ABG pO2 ABG HCO3 ABG O2 Saturation ABG Base Excess ABG Hemoglobin Oxyhemoglobin Sodium Potassium Chloride Carbon Dioxide BUN Creatinine Glucose POC Glucose 145 H Lactic Acid Calcium Ionized Calcium Phosphorus Magnesium Iron TIBC Ferritin Total Bilirubin Direct Bilirubin AST ALT Alkaline Phosphatase Total Creatine Kinase 41225 H CK-MB (CK-2) Troponin T C-Reactive Protein Serum Total Protein Total Protein Albumin Wbkam-5-Khnemnuwf Loazj-5-Sginurpic PEP Interpretation Triglycerides LDL Cholesterol Direct HDL Cholesterol Free T4 PTH Intact Urine WBC (Auto) Urine Creatinine Salicylates Acetaminophen Crossmatch 03/21/19 03/21/19 03/21/19 08:29 11:43 12:00 WBC RBC Hgb Hct MCV MCH MCHC RDW Plt Count Lymph % (Auto) [place] % (Auto) Eos % (Auto) Lymph # [place] # Eos # Seg Neutrophils % Seg Neuts % (Manual) Lymphocytes % (Manual) Monocytes % (Manual) Nucleated RBC % Seg Neutrophils # Seg Neutrophils # Man Lymphocytes # (Manual) Monocytes # (Manual) PT INR D-Dimer Heparin Anti-Xa Level POC ABG pH ABG pH POC ABG pCO2 POC ABG pO2 ABG pO2 ABG HCO3 ABG O2 Saturation ABG Base Excess ABG Hemoglobin Oxyhemoglobin Sodium Potassium Chloride Carbon Dioxide BUN Creatinine Glucose POC Glucose 123 H Lactic Acid 2.60 H* 2.20 H* Calcium Ionized Calcium Phosphorus Magnesium Iron TIBC Ferritin Total Bilirubin Direct Bilirubin AST ALT Alkaline Phosphatase Total Creatine Kinase CK-MB (CK-2) Troponin T C-Reactive Protein Serum Total Protein Total Protein Albumin Lilwv-2-Qnpkvutqm Hpdwi-5-Tzhomttrm PEP Interpretation Triglycerides LDL Cholesterol Direct HDL Cholesterol Free T4 PTH Intact Urine WBC (Auto) Urine Creatinine Salicylates Acetaminophen Crossmatch 03/21/19 03/21/19 03/21/19 14:11 18:28 19:32 WBC RBC Hgb Hct MCV MCH MCHC RDW Plt Count Lymph % (Auto) [place] % (Auto) Eos % (Auto) Lymph # [place] # Eos # Seg Neutrophils % Seg Neuts % (Manual) Lymphocytes % (Manual) Monocytes % (Manual) Nucleated RBC % Seg Neutrophils # Seg Neutrophils # Man Lymphocytes # (Manual) Monocytes # (Manual) PT INR D-Dimer Heparin Anti-Xa Level POC ABG pH 7.293 L ABG pH POC ABG pCO2 POC ABG pO2 ABG pO2 ABG HCO3 ABG O2 Saturation ABG Base Excess ABG Hemoglobin Oxyhemoglobin Sodium Potassium Chloride Carbon Dioxide BUN Creatinine Glucose POC Glucose 153 H Lactic Acid 2.10 H* Calcium Ionized Calcium Phosphorus Magnesium Iron TIBC Ferritin Total Bilirubin Direct Bilirubin AST ALT Alkaline Phosphatase Total Creatine Kinase CK-MB (CK-2) Troponin T C-Reactive Protein Serum Total Protein Total Protein Albumin Illmx-0-Cpwrepzdq Nyweu-3-Hjnahuvcj PEP Interpretation Triglycerides LDL Cholesterol Direct HDL Cholesterol Free T4 PTH Intact Urine WBC (Auto) Urine Creatinine Salicylates Acetaminophen Crossmatch 03/21/19 03/22/19 03/22/19 23:38 05:08 05:51 WBC RBC Hgb Hct MCV MCH MCHC RDW Plt Count Lymph % (Auto) [place] % (Auto) Eos % (Auto) Lymph # [place] # Eos # Seg Neutrophils % Seg Neuts % (Manual) Lymphocytes % (Manual) Monocytes % (Manual) Nucleated RBC % Seg Neutrophils # Seg Neutrophils # Man Lymphocytes # (Manual) Monocytes # (Manual) PT INR D-Dimer Heparin Anti-Xa Level POC ABG pH 7.283 L ABG pH POC ABG pCO2 POC ABG pO2 53 L ABG pO2 ABG HCO3 ABG O2 Saturation ABG Base Excess ABG Hemoglobin Oxyhemoglobin Sodium Potassium Chloride Carbon Dioxide BUN Creatinine Glucose POC Glucose 149 H 131 H Lactic Acid Calcium Ionized Calcium Phosphorus Magnesium Iron TIBC Ferritin Total Bilirubin Direct Bilirubin AST ALT Alkaline Phosphatase Total Creatine Kinase CK-MB (CK-2) Troponin T C-Reactive Protein Serum Total Protein Total Protein Albumin Wunam-0-Uqiiossep Ndwpg-8-Ibkftijko PEP Interpretation Triglycerides LDL Cholesterol Direct HDL Cholesterol Free T4 PTH Intact Urine WBC (Auto) Urine Creatinine Salicylates Acetaminophen Crossmatch 03/22/19 03/22/19 03/22/19 08:00 08:00 18:19 WBC 36.7 H RBC Hgb 11.0 L Hct 33.5 L MCV MCH MCHC RDW 15.5 H Plt Count 43 L Lymph % (Auto) [place] % (Auto) Eos % (Auto) Lymph # [place] # Eos # Seg Neutrophils % Seg Neuts % (Manual) 87.0 H Lymphocytes % (Manual) 7.0 L Monocytes % (Manual) Nucleated RBC % Seg Neutrophils # Seg Neutrophils # Man 31.9 H Lymphocytes # (Manual) Monocytes # (Manual) PT INR D-Dimer Heparin Anti-Xa Level POC ABG pH ABG pH POC ABG pCO2 46.4 H POC ABG pO2 108 H ABG pO2 ABG HCO3 ABG O2 Saturation ABG Base Excess ABG Hemoglobin Oxyhemoglobin Sodium 132 L Potassium 5.6 H Chloride 89.6 L Carbon Dioxide 20 L BUN 101 H Creatinine 7.4 H Glucose 124 H POC Glucose Lactic Acid Calcium 5.2 L* Ionized Calcium Phosphorus Magnesium Iron TIBC Ferritin Total Bilirubin 2.80 H Direct Bilirubin AST 119 H ALT 86 H Alkaline Phosphatase 245 H Total Creatine Kinase CK-MB (CK-2) Troponin T C-Reactive Protein Serum Total Protein Total Protein 5.6 L Albumin 2.5 L Ocawg-3-Eccdpfnsy Cgcdt-6-Corwtzfmd PEP Interpretation Triglycerides LDL Cholesterol Direct HDL Cholesterol Free T4 PTH Intact Urine WBC (Auto) Urine Creatinine Salicylates Acetaminophen Crossmatch 03/22/19 03/23/19 03/23/19 20:37 04:49 05:28 WBC 35.9 H RBC Hgb 10.8 L Hct 33.2 L MCV MCH MCHC RDW 15.5 H Plt Count 49 L Lymph % (Auto) [place] % (Auto) Eos % (Auto) Lymph # [place] # Eos # Seg Neutrophils % Seg Neuts % (Manual) 81.0 H Lymphocytes % (Manual) 3.5 L Monocytes % (Manual) Nucleated RBC % Seg Neutrophils # Seg Neutrophils # Man 29.1 H Lymphocytes # (Manual) Monocytes # (Manual) 1.4 H PT INR D-Dimer Heparin Anti-Xa Level POC ABG pH 7.296 L ABG pH POC ABG pCO2 46.2 H POC ABG pO2 ABG pO2 ABG HCO3 ABG O2 Saturation ABG Base Excess ABG Hemoglobin Oxyhemoglobin Sodium 129 L Potassium 5.2 H Chloride 91.1 L Carbon Dioxide BUN 91 H Creatinine 6.6 H Glucose 190 H POC Glucose Lactic Acid Calcium 5.3 L* Ionized Calcium Phosphorus Magnesium Iron TIBC Ferritin Total Bilirubin 1.80 H Direct Bilirubin AST 80 H ALT 62 H Alkaline Phosphatase 209 H Total Creatine Kinase 9758 H CK-MB (CK-2) Troponin T C-Reactive Protein Serum Total Protein Total Protein 5.2 L Albumin 2.2 L Pbnia-7-Orxdmkdos Dxvzu-0-Abekdvgfd PEP Interpretation Triglycerides LDL Cholesterol Direct HDL Cholesterol Free T4 PTH Intact Urine WBC (Auto) Urine Creatinine Salicylates Acetaminophen Crossmatch 03/23/19 03/23/19 03/23/19 05:28 05:31 11:33 WBC 29.7 H RBC 3.59 L Hgb 10.1 L Hct 31.1 L MCV MCH MCHC RDW 15.4 H Plt Count 47 L Lymph % (Auto) [place] % (Auto) Eos % (Auto) Lymph # [place] # Eos # Seg Neutrophils % Seg Neuts % (Manual) 89.0 H Lymphocytes % (Manual) 6.0 L Monocytes % (Manual) Nucleated RBC % 1.0 H Seg Neutrophils # Seg Neutrophils # Man 26.4 H Lymphocytes # (Manual) Monocytes # (Manual) PT INR D-Dimer Heparin Anti-Xa Level POC ABG pH ABG pH POC ABG pCO2 POC ABG pO2 ABG pO2 ABG HCO3 ABG O2 Saturation ABG Base Excess ABG Hemoglobin Oxyhemoglobin Sodium Potassium Chloride Carbon Dioxide BUN Creatinine Glucose POC Glucose 122 H 113 H Lactic Acid Calcium Ionized Calcium Phosphorus Magnesium Iron TIBC Ferritin Total Bilirubin Direct Bilirubin AST ALT Alkaline Phosphatase Total Creatine Kinase CK-MB (CK-2) Troponin T C-Reactive Protein Serum Total Protein Total Protein Albumin Syhim-9-Bfjnlzeim Nyudn-0-Hcnyygcti PEP Interpretation Triglycerides LDL Cholesterol Direct HDL Cholesterol Free T4 PTH Intact Urine WBC (Auto) Urine Creatinine Salicylates Acetaminophen Crossmatch 03/23/19 03/24/19 03/24/19 17:47 00:00 04:50 WBC 35.0 H RBC Hgb 10.4 L Hct 32.4 L MCV MCH MCHC RDW Plt Count 60 L Lymph % (Auto) [place] % (Auto) Eos % (Auto) Lymph # [place] # Eos # Seg Neutrophils % Seg Neuts % (Manual) 93.0 H Lymphocytes % (Manual) 5.0 L Monocytes % (Manual) Nucleated RBC % 7.0 H Seg Neutrophils # Seg Neutrophils # Man 32.6 H Lymphocytes # (Manual) Monocytes # (Manual) PT INR D-Dimer Heparin Anti-Xa Level POC ABG pH ABG pH POC ABG pCO2 POC ABG pO2 ABG pO2 ABG HCO3 ABG O2 Saturation ABG Base Excess ABG Hemoglobin Oxyhemoglobin Sodium Potassium Chloride Carbon Dioxide BUN Creatinine Glucose POC Glucose 111 H 108 H Lactic Acid Calcium Ionized Calcium Phosphorus Magnesium Iron TIBC Ferritin Total Bilirubin Direct Bilirubin AST ALT Alkaline Phosphatase Total Creatine Kinase CK-MB (CK-2) Troponin T C-Reactive Protein Serum Total Protein Total Protein Albumin Kufoi-2-Wnnzrelof Sbfjp-1-Bdwxixmzv PEP Interpretation Triglycerides LDL Cholesterol Direct HDL Cholesterol Free T4 PTH Intact Urine WBC (Auto) Urine Creatinine Salicylates Acetaminophen Crossmatch 03/24/19 03/24/19 03/24/19 04:50 05:06 12:55 WBC RBC Hgb Hct MCV MCH MCHC RDW Plt Count Lymph % (Auto) [place] % (Auto) Eos % (Auto) Lymph # [place] # Eos # Seg Neutrophils % Seg Neuts % (Manual) Lymphocytes % (Manual) Monocytes % (Manual) Nucleated RBC % Seg Neutrophils # Seg Neutrophils # Man Lymphocytes # (Manual) Monocytes # (Manual) PT INR D-Dimer Heparin Anti-Xa Level POC ABG pH ABG pH POC ABG pCO2 POC ABG pO2 ABG pO2 ABG HCO3 ABG O2 Saturation ABG Base Excess ABG Hemoglobin Oxyhemoglobin Sodium 134 L Potassium 5.1 H Chloride 95.3 L Carbon Dioxide 21 L BUN 85 H Creatinine 6.4 H Glucose 109 H POC Glucose 112 H 110 H Lactic Acid Calcium 5.8 L* Ionized Calcium Phosphorus Magnesium Iron TIBC Ferritin Total Bilirubin Direct Bilirubin AST ALT Alkaline Phosphatase Total Creatine Kinase 5747 H CK-MB (CK-2) Troponin T C-Reactive Protein Serum Total Protein Total Protein Albumin Rpgqt-0-Honzsyfom Wqmvp-1-Ijlbnltsk PEP Interpretation Triglycerides LDL Cholesterol Direct HDL Cholesterol Free T4 PTH Intact Urine WBC (Auto) Urine Creatinine Salicylates Acetaminophen Crossmatch 03/24/19 03/25/19 03/25/19 23:29 05:00 05:00 WBC RBC Hgb Hct MCV MCH MCHC RDW Plt Count Lymph % (Auto) [place] % (Auto) Eos % (Auto) Lymph # [place] # Eos # Seg Neutrophils % Seg Neuts % (Manual) Lymphocytes % (Manual) Monocytes % (Manual) Nucleated RBC % Seg Neutrophils # Seg Neutrophils # Man Lymphocytes # (Manual) Monocytes # (Manual) PT INR D-Dimer Heparin Anti-Xa Level POC ABG pH ABG pH POC ABG pCO2 POC ABG pO2 ABG pO2 ABG HCO3 ABG O2 Saturation ABG Base Excess ABG Hemoglobin Oxyhemoglobin Sodium 133 L Potassium Chloride 94.0 L Carbon Dioxide 21 L BUN 81 H Creatinine 6.4 H Glucose POC Glucose 109 H Lactic Acid Calcium 5.5 L* Ionized Calcium Phosphorus Magnesium Iron TIBC Ferritin Total Bilirubin Direct Bilirubin AST 80 H ALT Alkaline Phosphatase 202 H Total Creatine Kinase 3589 H CK-MB (CK-2) Troponin T C-Reactive Protein Serum Total Protein Total Protein 5.3 L Albumin 2.4 L Ppfbq-8-Mrtfczipa Rfcrq-2-Csklmfbnb PEP Interpretation Triglycerides LDL Cholesterol Direct HDL Cholesterol Free T4 PTH Intact 329.9 H Urine WBC (Auto) Urine Creatinine Salicylates Acetaminophen Crossmatch 03/25/19 03/25/19 03/26/19 05:00 06:30 04:30 WBC 23.3 H RBC 3.61 L Hgb 10.2 L Hct 31.2 L MCV MCH MCHC RDW Plt Count 57 L Lymph % (Auto) [place] % (Auto) Eos % (Auto) Lymph # [place] # Eos # Seg Neutrophils % Seg Neuts % (Manual) 92.0 H Lymphocytes % (Manual) 6.0 L Monocytes % (Manual) Nucleated RBC % Seg Neutrophils # Seg Neutrophils # Man 21.4 H Lymphocytes # (Manual) Monocytes # (Manual) PT INR D-Dimer Heparin Anti-Xa Level POC ABG pH ABG pH 7.326 L POC ABG pCO2 POC ABG pO2 ABG pO2 109.5 H 137.4 H ABG HCO3 18.8 L 18.6 L ABG O2 Saturation ABG Base Excess -4.4 L -6.8 L ABG Hemoglobin 10.1 L 9.9 L Oxyhemoglobin Sodium Potassium Chloride Carbon Dioxide BUN Creatinine Glucose POC Glucose Lactic Acid Calcium Ionized Calcium Phosphorus Magnesium Iron TIBC Ferritin Total Bilirubin Direct Bilirubin AST ALT Alkaline Phosphatase Total Creatine Kinase CK-MB (CK-2) Troponin T C-Reactive Protein Serum Total Protein Total Protein Albumin Oxyue-3-Dhscyqkec Ackie-6-Stuywnzwt PEP Interpretation Triglycerides LDL Cholesterol Direct HDL Cholesterol Free T4 PTH Intact Urine WBC (Auto) Urine Creatinine Salicylates Acetaminophen Crossmatch 03/26/19 03/26/19 03/26/19 23:22 Unknown Unknown WBC 19.5 H RBC 3.44 L Hgb 9.8 L Hct 29.9 L MCV MCH MCHC RDW Plt Count 85 L Lymph % (Auto) [place] % (Auto) Eos % (Auto) Lymph # [place] # Eos # Seg Neutrophils % Seg Neuts % (Manual) 95.0 H Lymphocytes % (Manual) 3.0 L Monocytes % (Manual) Nucleated RBC % Seg Neutrophils # Seg Neutrophils # Man 18.5 H Lymphocytes # (Manual) 0.6 L Monocytes # (Manual) PT INR D-Dimer Heparin Anti-Xa Level POC ABG pH ABG pH POC ABG pCO2 POC ABG pO2 ABG pO2 ABG HCO3 ABG O2 Saturation ABG Base Excess ABG Hemoglobin Oxyhemoglobin Sodium 135 L Potassium 5.2 H D Chloride 92.2 L Carbon Dioxide 18 L BUN 109 H Creatinine 8.5 H Glucose 117 H POC Glucose 69 L Lactic Acid Calcium 4.5 L* D Ionized Calcium Phosphorus Magnesium Iron TIBC Ferritin Total Bilirubin Direct Bilirubin AST ALT Alkaline Phosphatase Total Creatine Kinase 4527 H CK-MB (CK-2) Troponin T C-Reactive Protein Serum Total Protein Total Protein Albumin Kfaiv-4-Iocaoihvx Wbcfh-0-Qgodnjhpb PEP Interpretation Triglycerides LDL Cholesterol Direct HDL Cholesterol Free T4 PTH Intact Urine WBC (Auto) Urine Creatinine Salicylates Acetaminophen Crossmatch 03/27/19 03/27/19 03/27/19 04:30 04:30 09:00 WBC 19.2 H RBC 3.42 L Hgb 9.9 L Hct 30.0 L MCV MCH MCHC RDW Plt Count 84 L Lymph % (Auto) [place] % (Auto) Eos % (Auto) Lymph # [place] # Eos # Seg Neutrophils % Seg Neuts % (Manual) Lymphocytes % (Manual) Monocytes % (Manual) Nucleated RBC % Seg Neutrophils # Seg Neutrophils # Man Lymphocytes # (Manual) Monocytes # (Manual) PT INR D-Dimer Heparin Anti-Xa Level POC ABG pH ABG pH POC ABG pCO2 POC ABG pO2 ABG pO2 ABG HCO3 ABG O2 Saturation ABG Base Excess ABG Hemoglobin Oxyhemoglobin Sodium 135 L Potassium Chloride 93.5 L Carbon Dioxide BUN 84 H Creatinine 7.1 H Glucose POC Glucose Lactic Acid Calcium 5.0 L* Ionized Calcium Phosphorus Magnesium Iron TIBC Ferritin Total Bilirubin Direct Bilirubin AST 78 H ALT Alkaline Phosphatase 135 H Total Creatine Kinase 4677 H CK-MB (CK-2) Troponin T C-Reactive Protein Serum Total Protein Total Protein 4.8 L Albumin 2.3 L Otcoy-5-Vqndixjfn Ahooh-0-Mskyxzgdk PEP Interpretation Triglycerides 409 H LDL Cholesterol Direct HDL Cholesterol Free T4 PTH Intact Urine WBC (Auto) Urine Creatinine Salicylates Acetaminophen Crossmatch 03/27/19 03/27/19 03/27/19 12:37 14:15 14:15 WBC RBC Hgb 9.7 L Hct 29.5 L MCV MCH MCHC RDW Plt Count 87 L Lymph % (Auto) [place] % (Auto) Eos % (Auto) Lymph # [place] # Eos # Seg Neutrophils % Seg Neuts % (Manual) Lymphocytes % (Manual) Monocytes % (Manual) Nucleated RBC % Seg Neutrophils # Seg Neutrophils # Man Lymphocytes # (Manual) Monocytes # (Manual) PT 15.9 H INR 1.30 H D-Dimer Heparin Anti-Xa Level POC ABG pH ABG pH POC ABG pCO2 POC ABG pO2 ABG pO2 ABG HCO3 ABG O2 Saturation ABG Base Excess ABG Hemoglobin Oxyhemoglobin Sodium Potassium Chloride Carbon Dioxide BUN Creatinine Glucose POC Glucose 129 H Lactic Acid Calcium Ionized Calcium Phosphorus Magnesium Iron TIBC Ferritin Total Bilirubin Direct Bilirubin AST ALT Alkaline Phosphatase Total Creatine Kinase CK-MB (CK-2) Troponin T C-Reactive Protein Serum Total Protein Total Protein Albumin Bvttm-4-Gjknfnqfc Rbdiy-9-Nkislvlqk PEP Interpretation Triglycerides LDL Cholesterol Direct HDL Cholesterol Free T4 PTH Intact Urine WBC (Auto) Urine Creatinine Salicylates Acetaminophen Crossmatch 03/27/19 03/27/19 03/27/19 18:00 19:22 19:23 WBC RBC Hgb Hct MCV MCH MCHC RDW Plt Count Lymph % (Auto) [place] % (Auto) Eos % (Auto) Lymph # [place] # Eos # Seg Neutrophils % Seg Neuts % (Manual) Lymphocytes % (Manual) Monocytes % (Manual) Nucleated RBC % Seg Neutrophils # Seg Neutrophils # Man Lymphocytes # (Manual) Monocytes # (Manual) PT INR D-Dimer Heparin Anti-Xa Level < 0.10 L POC ABG pH ABG pH POC ABG pCO2 POC ABG pO2 ABG pO2 ABG HCO3 ABG O2 Saturation ABG Base Excess ABG Hemoglobin Oxyhemoglobin Sodium Potassium Chloride Carbon Dioxide BUN Creatinine Glucose POC Glucose 121 H Lactic Acid Calcium Ionized Calcium Phosphorus Magnesium Iron TIBC Ferritin Total Bilirubin Direct Bilirubin AST ALT Alkaline Phosphatase Total Creatine Kinase 4517 H CK-MB (CK-2) Troponin T C-Reactive Protein Serum Total Protein Total Protein Albumin Fwgvi-9-Tyevhipvd Nzuor-6-Vecplpvyp PEP Interpretation Triglycerides LDL Cholesterol Direct HDL Cholesterol Free T4 PTH Intact Urine WBC (Auto) Urine Creatinine Salicylates Acetaminophen Crossmatch 03/27/19 03/27/19 03/28/19 22:10 23:52 03:49 WBC RBC Hgb Hct MCV MCH MCHC RDW Plt Count Lymph % (Auto) [place] % (Auto) Eos % (Auto) Lymph # [place] # Eos # Seg Neutrophils % Seg Neuts % (Manual) Lymphocytes % (Manual) Monocytes % (Manual) Nucleated RBC % Seg Neutrophils # Seg Neutrophils # Man Lymphocytes # (Manual) Monocytes # (Manual) PT INR D-Dimer Heparin Anti-Xa Level POC ABG pH 7.338 L ABG pH POC ABG pCO2 33.1 L POC ABG pO2 ABG pO2 ABG HCO3 ABG O2 Saturation ABG Base Excess ABG Hemoglobin Oxyhemoglobin Sodium Potassium Chloride Carbon Dioxide BUN Creatinine Glucose POC Glucose 113 H 117 H Lactic Acid Calcium Ionized Calcium Phosphorus Magnesium Iron TIBC Ferritin Total Bilirubin Direct Bilirubin AST ALT Alkaline Phosphatase Total Creatine Kinase CK-MB (CK-2) Troponin T C-Reactive Protein Serum Total Protein Total Protein Albumin Boogb-1-Oywsxewcq Wsojb-7-Pfmlppjqy PEP Interpretation Triglycerides LDL Cholesterol Direct HDL Cholesterol Free T4 PTH Intact Urine WBC (Auto) Urine Creatinine Salicylates Acetaminophen Crossmatch 03/28/19 03/28/19 03/28/19 05:13 05:13 06:18 WBC RBC Hgb Hct MCV MCH MCHC RDW Plt Count Lymph % (Auto) [place] % (Auto) Eos % (Auto) Lymph # [place] # Eos # Seg Neutrophils % Seg Neuts % (Manual) Lymphocytes % (Manual) Monocytes % (Manual) Nucleated RBC % Seg Neutrophils # Seg Neutrophils # Man Lymphocytes # (Manual) Monocytes # (Manual) PT INR D-Dimer Heparin Anti-Xa Level 0.23 L POC ABG pH ABG pH POC ABG pCO2 POC ABG pO2 ABG pO2 ABG HCO3 ABG O2 Saturation ABG Base Excess ABG Hemoglobin Oxyhemoglobin Sodium 135 L Potassium 5.5 H D Chloride 95.1 L Carbon Dioxide 16 L D BUN 129 H Creatinine 9.3 H Glucose 158 H POC Glucose 202 H Lactic Acid Calcium 4.0 L* D Ionized Calcium Phosphorus 12.40 H Magnesium Iron TIBC Ferritin Total Bilirubin Direct Bilirubin AST ALT Alkaline Phosphatase Total Creatine Kinase 4266 H CK-MB (CK-2) Troponin T C-Reactive Protein Serum Total Protein Total Protein Albumin [id number] [id number]-1-[id number] PEP Interpretation Triglycerides LDL Cholesterol Direct HDL Cholesterol Free T4 PTH Intact Urine WBC (Auto) Urine Creatinine Salicylates Acetaminophen Crossmatch 03/28/19 03/28/19 03/28/19 08:25 10:00 12:00 WBC RBC Hgb 4.9 L* D Hct 15.4 L* D MCV MCH MCHC RDW Plt Count Lymph % (Auto) [place] % (Auto) Eos % (Auto) Lymph # [place] # Eos # Seg Neutrophils % Seg Neuts % (Manual) Lymphocytes % (Manual) Monocytes % (Manual) Nucleated RBC % Seg Neutrophils # Seg Neutrophils # Man Lymphocytes # (Manual) Monocytes # (Manual) PT 17.9 H INR 1.52 H D-Dimer 4845.98 H Heparin Anti-Xa Level POC ABG pH ABG pH POC ABG pCO2 POC ABG pO2 ABG pO2 ABG HCO3 ABG O2 Saturation ABG Base Excess ABG Hemoglobin Oxyhemoglobin Sodium Potassium Chloride Carbon Dioxide BUN Creatinine Glucose POC Glucose Lactic Acid Calcium Ionized Calcium Phosphorus Magnesium Iron TIBC Ferritin Total Bilirubin Direct Bilirubin AST ALT Alkaline Phosphatase Total Creatine Kinase CK-MB (CK-2) Troponin T C-Reactive Protein Serum Total Protein Total Protein Albumin Mapsl-4-Saoiroxmh Fmfvd-0-Mzcznczzy PEP Interpretation Triglycerides LDL Cholesterol Direct HDL Cholesterol Free T4 PTH Intact Urine WBC (Auto) Urine Creatinine Salicylates Acetaminophen Crossmatch See Detail 03/28/19 03/28/19 03/28/19 12:28 14:10 17:43 WBC RBC Hgb 5.9 L* Hct 18.3 L* MCV MCH MCHC RDW Plt Count Lymph % (Auto) [place] % (Auto) Eos % (Auto) Lymph # [place] # Eos # Seg Neutrophils % Seg Neuts % (Manual) Lymphocytes % (Manual) Monocytes % (Manual) Nucleated RBC % Seg Neutrophils # Seg Neutrophils # Man Lymphocytes # (Manual) Monocytes # (Manual) PT INR D-Dimer Heparin Anti-Xa Level POC ABG pH ABG pH POC ABG pCO2 POC ABG pO2 ABG pO2 ABG HCO3 ABG O2 Saturation ABG Base Excess ABG Hemoglobin Oxyhemoglobin Sodium Potassium Chloride Carbon Dioxide BUN Creatinine Glucose POC Glucose 153 H 159 H Lactic Acid Calcium Ionized Calcium Phosphorus Magnesium Iron TIBC Ferritin Total Bilirubin Direct Bilirubin AST ALT Alkaline Phosphatase Total Creatine Kinase CK-MB (CK-2) Troponin T C-Reactive Protein Serum Total Protein Total Protein Albumin Jrfiw-2-Ddiuxnasg Lggxr-1-Dtzgjdcxr PEP Interpretation Triglycerides LDL Cholesterol Direct HDL Cholesterol Free T4 PTH Intact Urine WBC (Auto) Urine Creatinine Salicylates Acetaminophen Crossmatch 03/28/19 03/28/19 03/28/19 18:10 Unknown 23:59 WBC 24.8 H RBC 3.42 L Hgb 10.2 L D Hct 31.1 L D MCV MCH MCHC RDW 15.4 H Plt Count 54 L Lymph % (Auto) [place] % (Auto) Eos % (Auto) Lymph # [place] # Eos # Seg Neutrophils % Seg Neuts % (Manual) 91.0 H Lymphocytes % (Manual) 8.0 L Monocytes % (Manual) Nucleated RBC % Seg Neutrophils # Seg Neutrophils # Man 22.6 H Lymphocytes # (Manual) Monocytes # (Manual) PT INR D-Dimer Heparin Anti-Xa Level POC ABG pH ABG pH POC ABG pCO2 POC ABG pO2 ABG pO2 ABG HCO3 ABG O2 Saturation ABG Base Excess ABG Hemoglobin Oxyhemoglobin Sodium Potassium 5.7 H Chloride Carbon Dioxide BUN Creatinine Glucose POC Glucose 107 H Lactic Acid Calcium Ionized Calcium Phosphorus Magnesium Iron TIBC Ferritin Total Bilirubin Direct Bilirubin AST ALT Alkaline Phosphatase Total Creatine Kinase CK-MB (CK-2) Troponin T C-Reactive Protein Serum Total Protein Total Protein Albumin Nvnkl-0-Nxlgumcan Sulyr-3-Regkauotg PEP Interpretation Triglycerides LDL Cholesterol Direct HDL Cholesterol Free T4 PTH Intact Urine WBC (Auto) Urine Creatinine Salicylates Acetaminophen Crossmatch 03/29/19 03/29/19 03/29/19 04:29 05:46 06:22 WBC RBC Hgb 8.6 L Hct 25.7 L MCV MCH MCHC RDW Plt Count 93 L Lymph % (Auto) [place] % (Auto) Eos % (Auto) Lymph # [place] # Eos # Seg Neutrophils % Seg Neuts % (Manual) Lymphocytes % (Manual) Monocytes % (Manual) Nucleated RBC % Seg Neutrophils # Seg Neutrophils # Man Lymphocytes # (Manual) Monocytes # (Manual) PT INR D-Dimer Heparin Anti-Xa Level POC ABG pH ABG pH POC ABG pCO2 32.2 L POC ABG pO2 ABG pO2 ABG HCO3 ABG O2 Saturation ABG Base Excess ABG Hemoglobin Oxyhemoglobin Sodium Potassium Chloride Carbon Dioxide BUN Creatinine Glucose POC Glucose 113 H Lactic Acid Calcium Ionized Calcium Phosphorus Magnesium Iron TIBC Ferritin Total Bilirubin Direct Bilirubin AST ALT Alkaline Phosphatase Total Creatine Kinase CK-MB (CK-2) Troponin T C-Reactive Protein Serum Total Protein Total Protein Albumin Jfedw-4-Mcmbsvwwg Qsuki-8-Dxswqslou PEP Interpretation Triglycerides LDL Cholesterol Direct HDL Cholesterol Free T4 PTH Intact Urine WBC (Auto) Urine Creatinine Salicylates Acetaminophen Crossmatch 03/29/19 03/29/19 03/29/19 06:22 06:22 06:22 WBC 23.2 H RBC 2.91 L Hgb 8.6 L Hct 25.8 L MCV MCH MCHC RDW Plt Count 91 L Lymph % (Auto) [place] % (Auto) Eos % (Auto) Lymph # [place] # Eos # Seg Neutrophils % Seg Neuts % (Manual) Lymphocytes % (Manual) Monocytes % (Manual) Nucleated RBC % Seg Neutrophils # Seg Neutrophils # Man Lymphocytes # (Manual) Monocytes # (Manual) PT INR D-Dimer Heparin Anti-Xa Level POC ABG pH ABG pH POC ABG pCO2 POC ABG pO2 ABG pO2 ABG HCO3 ABG O2 Saturation ABG Base Excess ABG Hemoglobin Oxyhemoglobin Sodium 133 L Potassium Chloride 93.8 L Carbon Dioxide 18 L BUN 109 H Creatinine 7.4 H Glucose 124 H POC Glucose Lactic Acid Calcium 4.6 L* Ionized Calcium Phosphorus Magnesium Iron TIBC Ferritin Total Bilirubin Direct Bilirubin AST ALT Alkaline Phosphatase Total Creatine Kinase 3401 H CK-MB (CK-2) Troponin T C-Reactive Protein Serum Total Protein Total Protein Albumin Mydfe-5-Mecdiklmb Bmzkr-7-Xvljrmwbi PEP Interpretation Triglycerides 309 H LDL Cholesterol Direct HDL Cholesterol Free T4 PTH Intact Urine WBC (Auto) Urine Creatinine Salicylates Acetaminophen Crossmatch 03/29/19 03/29/19 03/29/19 11:48 11:48 18:24 WBC RBC Hgb 7.8 L Hct 23.2 L MCV MCH MCHC RDW Plt Count Lymph % (Auto) [place] % (Auto) Eos % (Auto) Lymph # [place] # Eos # Seg Neutrophils % Seg Neuts % (Manual) Lymphocytes % (Manual) Monocytes % (Manual) Nucleated RBC % Seg Neutrophils # Seg Neutrophils # Man Lymphocytes # (Manual) Monocytes # (Manual) PT 15.3 H INR 1.24 H D-Dimer Heparin Anti-Xa Level POC ABG pH ABG pH POC ABG pCO2 POC ABG pO2 ABG pO2 ABG HCO3 ABG O2 Saturation ABG Base Excess ABG Hemoglobin Oxyhemoglobin Sodium Potassium Chloride Carbon Dioxide BUN Creatinine Glucose POC Glucose 122 H Lactic Acid Calcium Ionized Calcium Phosphorus Magnesium Iron TIBC Ferritin Total Bilirubin Direct Bilirubin AST ALT Alkaline Phosphatase Total Creatine Kinase CK-MB (CK-2) Troponin T C-Reactive Protein Serum Total Protein Total Protein Albumin Xaxcw-7-Wfngtcuay Rvjlk-3-Zpamkcrkv PEP Interpretation Triglycerides LDL Cholesterol Direct HDL Cholesterol Free T4 PTH Intact Urine WBC (Auto) Urine Creatinine Salicylates Acetaminophen Crossmatch 03/30/19 03/30/19 03/30/19 00:40 04:31 05:04 WBC RBC Hgb 7.6 L Hct 23.0 L MCV MCH MCHC RDW Plt Count Lymph % (Auto) [place] % (Auto) Eos % (Auto) Lymph # [place] # Eos # Seg Neutrophils % Seg Neuts % (Manual) Lymphocytes % (Manual) Monocytes % (Manual) Nucleated RBC % Seg Neutrophils # Seg Neutrophils # Man Lymphocytes # (Manual) Monocytes # (Manual) PT INR D-Dimer Heparin Anti-Xa Level POC ABG pH 7.346 L ABG pH POC ABG pCO2 POC ABG pO2 62 L ABG pO2 ABG HCO3 ABG O2 Saturation ABG Base Excess ABG Hemoglobin Oxyhemoglobin Sodium Potassium Chloride Carbon Dioxide BUN 79 H Creatinine 6.4 H Glucose POC Glucose Lactic Acid Calcium 6.1 L D Ionized Calcium Phosphorus Magnesium Iron TIBC Ferritin Total Bilirubin Direct Bilirubin AST ALT Alkaline Phosphatase Total Creatine Kinase CK-MB (CK-2) Troponin T C-Reactive Protein Serum Total Protein Total Protein Albumin Pahhb-2-Jvcxtpmol Psbqf-7-Qixeqhofd PEP Interpretation Triglycerides LDL Cholesterol Direct HDL Cholesterol Free T4 PTH Intact Urine WBC (Auto) Urine Creatinine Salicylates Acetaminophen Crossmatch 03/30/19 03/30/19 03/30/19 08:45 12:09 22:43 WBC 14.3 H RBC 2.33 L Hgb 7.0 L 7.4 L Hct 21.0 L 22.3 L MCV MCH MCHC RDW 15.6 H Plt Count 135 L Lymph % (Auto) [place] % (Auto) Eos % (Auto) Lymph # [place] # Eos # Seg Neutrophils % Seg Neuts % (Manual) Lymphocytes % (Manual) Monocytes % (Manual) Nucleated RBC % Seg Neutrophils # Seg Neutrophils # Man Lymphocytes # (Manual) Monocytes # (Manual) PT INR D-Dimer Heparin Anti-Xa Level POC ABG pH ABG pH POC ABG pCO2 POC ABG pO2 ABG pO2 ABG HCO3 ABG O2 Saturation ABG Base Excess ABG Hemoglobin Oxyhemoglobin Sodium Potassium Chloride Carbon Dioxide BUN Creatinine Glucose POC Glucose Lactic Acid Calcium Ionized Calcium 3.7 L Phosphorus Magnesium Iron TIBC Ferritin Total Bilirubin Direct Bilirubin AST ALT Alkaline Phosphatase Total Creatine Kinase CK-MB (CK-2) Troponin T C-Reactive Protein Serum Total Protein Total Protein Albumin Eaagh-3-Pzjjdwqyf Vrayk-0-Izvqlvzwj PEP Interpretation Triglycerides LDL Cholesterol Direct HDL Cholesterol Free T4 PTH Intact Urine WBC (Auto) Urine Creatinine Salicylates Acetaminophen Crossmatch 03/30/19 03/30/19 03/31/19 23:38 Unknown 04:44 WBC 11.5 H RBC 2.40 L Hgb 7.3 L Hct 21.9 L MCV MCH MCHC RDW 15.4 H Plt Count Lymph % (Auto) 10.6 L [place] % (Auto) Eos % (Auto) Lymph # [place] # Eos # Seg Neutrophils % 81.7 H Seg Neuts % (Manual) Lymphocytes % (Manual) Monocytes % (Manual) Nucleated RBC % Seg Neutrophils # 9.4 H Seg Neutrophils # Man Lymphocytes # (Manual) Monocytes # (Manual) PT INR D-Dimer Heparin Anti-Xa Level POC ABG pH ABG pH POC ABG pCO2 POC ABG pO2 ABG pO2 ABG HCO3 ABG O2 Saturation ABG Base Excess ABG Hemoglobin Oxyhemoglobin Sodium Potassium Chloride Carbon Dioxide BUN Creatinine Glucose POC Glucose 155 H Lactic Acid Calcium Ionized Calcium Phosphorus Magnesium Iron TIBC Ferritin Total Bilirubin Direct Bilirubin 0.4 H AST 63 H ALT Alkaline Phosphatase Total Creatine Kinase CK-MB (CK-2) Troponin T C-Reactive Protein Serum Total Protein Total Protein 4.9 L Albumin 2.2 L Jgulp-3-Avjvpbzpn Djfli-7-Epuvrxgqf PEP Interpretation Triglycerides LDL Cholesterol Direct HDL Cholesterol Free T4 PTH Intact Urine WBC (Auto) Urine Creatinine Salicylates Acetaminophen Crossmatch 03/31/19 03/31/19 03/31/19 04:44 05:44 08:20 WBC RBC Hgb Hct MCV MCH MCHC RDW Plt Count Lymph % (Auto) [place] % (Auto) Eos % (Auto) Lymph # [place] # Eos # Seg Neutrophils % Seg Neuts % (Manual) Lymphocytes % (Manual) Monocytes % (Manual) Nucleated RBC % Seg Neutrophils # Seg Neutrophils # Man Lymphocytes # (Manual) Monocytes # (Manual) PT INR D-Dimer Heparin Anti-Xa Level POC ABG pH ABG pH POC ABG pCO2 53.5 H POC ABG pO2 62 L ABG pO2 ABG HCO3 ABG O2 Saturation ABG Base Excess ABG Hemoglobin Oxyhemoglobin Sodium 135 L Potassium Chloride 96.7 L Carbon Dioxide 19 L BUN 94 H Creatinine 7.8 H Glucose POC Glucose Lactic Acid Calcium 5.3 L* Ionized Calcium Phosphorus 8.20 H Magnesium Iron TIBC Ferritin Total Bilirubin Direct Bilirubin 0.4 H AST 60 H ALT Alkaline Phosphatase Total Creatine Kinase CK-MB (CK-2) Troponin T C-Reactive Protein Serum Total Protein Total Protein 4.8 L Albumin 2.1 L Djveh-0-Zecwxrlwv Vwvfe-5-Xptuzfisr PEP Interpretation Triglycerides LDL Cholesterol Direct HDL Cholesterol Free T4 PTH Intact Urine WBC (Auto) Urine Creatinine Salicylates Acetaminophen Crossmatch 03/31/19 04/01/19 04/01/19 22:14 04:27 04:27 WBC RBC 2.60 L Hgb 8.0 L Hct 24.1 L MCV MCH MCHC RDW 15.7 H Plt Count Lymph % (Auto) 7.9 L [place] % (Auto) Eos % (Auto) Lymph # 0.7 L [place] # Eos # Seg Neutrophils % 83.6 H Seg Neuts % (Manual) Lymphocytes % (Manual) Monocytes % (Manual) Nucleated RBC % Seg Neutrophils # Seg Neutrophils # Man Lymphocytes # (Manual) Monocytes # (Manual) PT INR D-Dimer Heparin Anti-Xa Level POC ABG pH 7.286 L ABG pH POC ABG pCO2 54.7 H POC ABG pO2 179 H ABG pO2 ABG HCO3 ABG O2 Saturation ABG Base Excess ABG Hemoglobin Oxyhemoglobin Sodium Potassium Chloride Carbon Dioxide BUN 68 H Creatinine 6.6 H Glucose POC Glucose Lactic Acid Calcium 6.5 L D Ionized Calcium Phosphorus 7.30 H Magnesium Iron TIBC Ferritin Total Bilirubin Direct Bilirubin AST ALT Alkaline Phosphatase Total Creatine Kinase 1652 H CK-MB (CK-2) Troponin T C-Reactive Protein Serum Total Protein Total Protein Albumin Bqtsq-2-Ecqvvyhtb Sqzsc-0-Cqbobkltf PEP Interpretation Triglycerides LDL Cholesterol Direct HDL Cholesterol Free T4 PTH Intact Urine WBC (Auto) Urine Creatinine Salicylates Acetaminophen Crossmatch 04/01/19 04/01/19 04/01/19 05:14 05:37 18:37 WBC RBC Hgb Hct MCV MCH MCHC RDW Plt Count Lymph % (Auto) [place] % (Auto) Eos % (Auto) Lymph # [place] # Eos # Seg Neutrophils % Seg Neuts % (Manual) Lymphocytes % (Manual) Monocytes % (Manual) Nucleated RBC % Seg Neutrophils # Seg Neutrophils # Man Lymphocytes # (Manual) Monocytes # (Manual) PT INR D-Dimer Heparin Anti-Xa Level POC ABG pH 7.283 L ABG pH POC ABG pCO2 53.4 H POC ABG pO2 241 H ABG pO2 ABG HCO3 ABG O2 Saturation ABG Base Excess ABG Hemoglobin Oxyhemoglobin Sodium Potassium Chloride Carbon Dioxide BUN Creatinine Glucose POC Glucose 111 H 119 H Lactic Acid Calcium Ionized Calcium Phosphorus Magnesium Iron TIBC Ferritin Total Bilirubin Direct Bilirubin AST ALT Alkaline Phosphatase Total Creatine Kinase CK-MB (CK-2) Troponin T C-Reactive Protein Serum Total Protein Total Protein Albumin Fuqcd-4-Drovmopap Upyhj-2-Llurcqwru PEP Interpretation Triglycerides LDL Cholesterol Direct HDL Cholesterol Free T4 PTH Intact Urine WBC (Auto) Urine Creatinine Salicylates Acetaminophen Crossmatch 04/01/19 04/02/19 04/02/19 21:28 04:40 05:03 WBC RBC 2.36 L Hgb 7.2 L Hct 21.9 L MCV MCH MCHC RDW 16.0 H Plt Count Lymph % (Auto) 10.8 L [place] % (Auto) Eos % (Auto) Lymph # 0.8 L [place] # Eos # Seg Neutrophils % 80.3 H Seg Neuts % (Manual) Lymphocytes % (Manual) Monocytes % (Manual) Nucleated RBC % Seg Neutrophils # Seg Neutrophils # Man Lymphocytes # (Manual) Monocytes # (Manual) PT INR D-Dimer Heparin Anti-Xa Level POC ABG pH 7.299 L 7.300 L ABG pH POC ABG pCO2 48.2 H 45.2 H POC ABG pO2 133 H 107 H ABG pO2 ABG HCO3 ABG O2 Saturation ABG Base Excess ABG Hemoglobin Oxyhemoglobin Sodium Potassium Chloride Carbon Dioxide BUN Creatinine Glucose POC Glucose Lactic Acid Calcium Ionized Calcium Phosphorus Magnesium Iron TIBC Ferritin Total Bilirubin Direct Bilirubin AST ALT Alkaline Phosphatase Total Creatine Kinase CK-MB (CK-2) Troponin T C-Reactive Protein Serum Total Protein Total Protein Albumin Cdknk-2-Tgpqofmht Ysato-4-Uzoksotja PEP Interpretation Triglycerides LDL Cholesterol Direct HDL Cholesterol Free T4 PTH Intact Urine WBC (Auto) Urine Creatinine Salicylates Acetaminophen Crossmatch 04/02/19 04/02/19 04/02/19 05:03 05:03 12:15 WBC RBC Hgb 7.4 L Hct 22.6 L MCV MCH MCHC RDW Plt Count Lymph % (Auto) [place] % (Auto) Eos % (Auto) Lymph # [place] # Eos # Seg Neutrophils % Seg Neuts % (Manual) Lymphocytes % (Manual) Monocytes % (Manual) Nucleated RBC % Seg Neutrophils # Seg Neutrophils # Man Lymphocytes # (Manual) Monocytes # (Manual) PT INR D-Dimer Heparin Anti-Xa Level POC ABG pH ABG pH POC ABG pCO2 POC ABG pO2 ABG pO2 ABG HCO3 ABG O2 Saturation ABG Base Excess ABG Hemoglobin Oxyhemoglobin Sodium 136 L Potassium Chloride 97.8 L Carbon Dioxide 18 L BUN 82 H Creatinine 8.2 H Glucose POC Glucose Lactic Acid Calcium 6.7 L Ionized Calcium Phosphorus 7.50 H Magnesium Iron 26 L TIBC 138 L Ferritin 607.0 H Total Bilirubin Direct Bilirubin AST ALT Alkaline Phosphatase Total Creatine Kinase CK-MB (CK-2) Troponin T C-Reactive Protein Serum Total Protein Total Protein Albumin Ritge-1-Rhkgjirze Xhudg-1-Dbiodqtrw PEP Interpretation Triglycerides LDL Cholesterol Direct HDL Cholesterol Free T4 PTH Intact Urine WBC (Auto) Urine Creatinine Salicylates Acetaminophen Crossmatch 04/02/19 04/02/19 04/03/19 16:34 17:14 04:18 WBC RBC Hgb Hct MCV MCH MCHC RDW Plt Count Lymph % (Auto) [place] % (Auto) Eos % (Auto) Lymph # [place] # Eos # Seg Neutrophils % Seg Neuts % (Manual) Lymphocytes % (Manual) Monocytes % (Manual) Nucleated RBC % Seg Neutrophils # Seg Neutrophils # Man Lymphocytes # (Manual) Monocytes # (Manual) PT INR D-Dimer Heparin Anti-Xa Level POC ABG pH ABG pH POC ABG pCO2 POC ABG pO2 146 H ABG pO2 ABG HCO3 ABG O2 Saturation ABG Base Excess ABG Hemoglobin Oxyhemoglobin Sodium Potassium Chloride Carbon Dioxide BUN Creatinine Glucose POC Glucose 108 H Lactic Acid Calcium Ionized Calcium Phosphorus Magnesium Iron TIBC Ferritin Total Bilirubin Direct Bilirubin AST ALT Alkaline Phosphatase Total Creatine Kinase CK-MB (CK-2) Troponin T C-Reactive Protein Serum Total Protein Total Protein Albumin Hncgb-3-Xyyodxies Ijiac-0-Vsatoebkt PEP Interpretation Triglycerides LDL Cholesterol Direct HDL Cholesterol Free T4 PTH Intact Urine WBC (Auto) Urine Creatinine Salicylates Acetaminophen Crossmatch See Detail 04/03/19 04/03/19 04/03/19 04:25 08:30 18:24 WBC RBC 2.40 L Hgb 7.3 L Hct 21.9 L MCV MCH MCHC RDW Plt Count Lymph % (Auto) [place] % (Auto) 7.7 H Eos % (Auto) Lymph # 0.9 L [place] # Eos # Seg Neutrophils % 74.6 H Seg Neuts % (Manual) Lymphocytes % (Manual) Monocytes % (Manual) Nucleated RBC % Seg Neutrophils # Seg Neutrophils # Man Lymphocytes # (Manual) Monocytes # (Manual) PT INR D-Dimer Heparin Anti-Xa Level POC ABG pH ABG pH POC ABG pCO2 POC ABG pO2 ABG pO2 ABG HCO3 ABG O2 Saturation ABG Base Excess ABG Hemoglobin Oxyhemoglobin Sodium 136 L Potassium Chloride 97.0 L Carbon Dioxide BUN 58 H Creatinine 7.3 H Glucose POC Glucose 106 H Lactic Acid Calcium 7.5 L Ionized Calcium Phosphorus 5.80 H D Magnesium Iron TIBC Ferritin Total Bilirubin Direct Bilirubin AST ALT Alkaline Phosphatase Total Creatine Kinase CK-MB (CK-2) Troponin T C-Reactive Protein Serum Total Protein Total Protein Albumin Ntuao-8-Fvtkaiczw Wpwex-5-Eayujwnxy PEP Interpretation Triglycerides LDL Cholesterol Direct HDL Cholesterol Free T4 PTH Intact Urine WBC (Auto) Urine Creatinine Salicylates Acetaminophen Crossmatch 04/03/19 04/04/19 04/04/19 23:43 04:47 04:47 WBC RBC 2.72 L Hgb 8.3 L Hct 24.7 L MCV MCH MCHC RDW 15.6 H Plt Count Lymph % (Auto) [place] % (Auto) 10.1 H Eos % (Auto) Lymph # 0.8 L [place] # Eos # Seg Neutrophils % 71.4 H Seg Neuts % (Manual) Lymphocytes % (Manual) Monocytes % (Manual) Nucleated RBC % Seg Neutrophils # Seg Neutrophils # Man Lymphocytes # (Manual) Monocytes # (Manual) PT INR D-Dimer Heparin Anti-Xa Level POC ABG pH ABG pH POC ABG pCO2 POC ABG pO2 ABG pO2 123.8 H ABG HCO3 ABG O2 Saturation ABG Base Excess -3.0 L ABG Hemoglobin 7.9 L Oxyhemoglobin Sodium 134 L Potassium Chloride 97.9 L Carbon Dioxide BUN 64 H Creatinine 8.1 H Glucose POC Glucose Lactic Acid Calcium 7.2 L Ionized Calcium Phosphorus Magnesium Iron TIBC Ferritin Total Bilirubin Direct Bilirubin AST ALT Alkaline Phosphatase Total Creatine Kinase CK-MB (CK-2) Troponin T C-Reactive Protein Serum Total Protein Total Protein Albumin Ejyvz-7-Hyjjnbcut Njdua-0-Bjnyaxdiv PEP Interpretation Triglycerides LDL Cholesterol Direct HDL Cholesterol Free T4 PTH Intact Urine WBC (Auto) Urine Creatinine Salicylates Acetaminophen Crossmatch 04/04/19 04/04/19 04/04/19 06:07 13:40 18:18 WBC RBC Hgb Hct MCV MCH MCHC RDW Plt Count Lymph % (Auto) [place] % (Auto) Eos % (Auto) Lymph # [place] # Eos # Seg Neutrophils % Seg Neuts % (Manual) Lymphocytes % (Manual) Monocytes % (Manual) Nucleated RBC % Seg Neutrophils # Seg Neutrophils # Man Lymphocytes # (Manual) Monocytes # (Manual) PT INR D-Dimer Heparin Anti-Xa Level POC ABG pH ABG pH POC ABG pCO2 POC ABG pO2 ABG pO2 95.9 H ABG HCO3 ABG O2 Saturation ABG Base Excess -3.0 L ABG Hemoglobin 8.5 L Oxyhemoglobin Sodium Potassium Chloride Carbon Dioxide BUN Creatinine Glucose POC Glucose 107 H 107 H Lactic Acid Calcium Ionized Calcium Phosphorus Magnesium Iron TIBC Ferritin Total Bilirubin Direct Bilirubin AST ALT Alkaline Phosphatase Total Creatine Kinase CK-MB (CK-2) Troponin T C-Reactive Protein Serum Total Protein Total Protein Albumin Iooyf-0-Gfjlekacm Kuslr-3-Jcyuetpob PEP Interpretation Triglycerides LDL Cholesterol Direct HDL Cholesterol Free T4 PTH Intact Urine WBC (Auto) Urine Creatinine Salicylates Acetaminophen Crossmatch 04/04/19 04/05/19 04/05/19 21:22 04:09 04:09 WBC RBC 2.76 L Hgb 8.4 L Hct 25.4 L MCV MCH MCHC RDW 15.8 H Plt Count 133 L Lymph % (Auto) [place] % (Auto) 9.6 H Eos % (Auto) Lymph # 0.7 L [place] # Eos # Seg Neutrophils % 72.6 H Seg Neuts % (Manual) Lymphocytes % (Manual) Monocytes % (Manual) Nucleated RBC % Seg Neutrophils # Seg Neutrophils # Man Lymphocytes # (Manual) Monocytes # (Manual) PT INR D-Dimer Heparin Anti-Xa Level POC ABG pH ABG pH POC ABG pCO2 47.2 H POC ABG pO2 137 H ABG pO2 ABG HCO3 ABG O2 Saturation ABG Base Excess ABG Hemoglobin Oxyhemoglobin Sodium 136 L Potassium Chloride Carbon Dioxide BUN 46 H Creatinine 6.7 H Glucose POC Glucose Lactic Acid Calcium 7.7 L Ionized Calcium Phosphorus Magnesium Iron TIBC Ferritin Total Bilirubin Direct Bilirubin AST ALT Alkaline Phosphatase Total Creatine Kinase CK-MB (CK-2) Troponin T C-Reactive Protein Serum Total Protein Total Protein Albumin Soujf-9-Xkgxshhpn Hdfxi-7-Ljznmfwod PEP Interpretation Triglycerides LDL Cholesterol Direct HDL Cholesterol Free T4 PTH Intact Urine WBC (Auto) Urine Creatinine Salicylates Acetaminophen Crossmatch 04/05/19 04/05/19 04/05/19 05:28 06:14 16:50 WBC RBC Hgb Hct MCV MCH MCHC RDW Plt Count Lymph % (Auto) [place] % (Auto) Eos % (Auto) Lymph # [place] # Eos # Seg Neutrophils % Seg Neuts % (Manual) Lymphocytes % (Manual) Monocytes % (Manual) Nucleated RBC % Seg Neutrophils # Seg Neutrophils # Man Lymphocytes # (Manual) Monocytes # (Manual) PT INR D-Dimer Heparin Anti-Xa Level POC ABG pH ABG pH POC ABG pCO2 POC ABG pO2 67 L ABG pO2 ABG HCO3 ABG O2 Saturation ABG Base Excess ABG Hemoglobin Oxyhemoglobin Sodium Potassium Chloride Carbon Dioxide BUN Creatinine Glucose POC Glucose 108 H Lactic Acid Calcium Ionized Calcium Phosphorus Magnesium Iron TIBC Ferritin Total Bilirubin Direct Bilirubin AST ALT Alkaline Phosphatase Total Creatine Kinase CK-MB (CK-2) Troponin T C-Reactive Protein Serum Total Protein Total Protein Albumin Jhlmz-4-Unpvkdsqq Ccrls-7-Llejxtnnz PEP Interpretation Triglycerides LDL Cholesterol Direct HDL Cholesterol Free T4 PTH Intact Urine WBC (Auto) 40.0 H Urine Creatinine Salicylates Acetaminophen Crossmatch 04/05/19 04/06/19 04/06/19 17:22 00:13 04:44 WBC RBC 2.48 L Hgb 7.5 L Hct 22.9 L MCV MCH MCHC RDW 16.0 H Plt Count 107 L Lymph % (Auto) [place] % (Auto) 10.7 H Eos % (Auto) Lymph # 1.0 L [place] # Eos # Seg Neutrophils % Seg Neuts % (Manual) Lymphocytes % (Manual) Monocytes % (Manual) Nucleated RBC % Seg Neutrophils # Seg Neutrophils # Man Lymphocytes # (Manual) Monocytes # (Manual) PT INR D-Dimer Heparin Anti-Xa Level POC ABG pH ABG pH POC ABG pCO2 POC ABG pO2 ABG pO2 ABG HCO3 ABG O2 Saturation ABG Base Excess ABG Hemoglobin Oxyhemoglobin Sodium Potassium Chloride Carbon Dioxide BUN Creatinine Glucose POC Glucose 118 H 138 H Lactic Acid Calcium Ionized Calcium Phosphorus Magnesium Iron TIBC Ferritin Total Bilirubin Direct Bilirubin AST ALT Alkaline Phosphatase Total Creatine Kinase CK-MB (CK-2) Troponin T C-Reactive Protein Serum Total Protein Total Protein Albumin Jloov-6-Seurpcrmo Ffzux-9-Tnawwtbvj PEP Interpretation Triglycerides LDL Cholesterol Direct HDL Cholesterol Free T4 PTH Intact Urine WBC (Auto) Urine Creatinine Salicylates Acetaminophen Crossmatch 04/06/19 04/06/19 04/06/19 04:44 05:20 05:23 WBC RBC Hgb Hct MCV MCH MCHC RDW Plt Count Lymph % (Auto) [place] % (Auto) Eos % (Auto) Lymph # [place] # Eos # Seg Neutrophils % Seg Neuts % (Manual) Lymphocytes % (Manual) Monocytes % (Manual) Nucleated RBC % Seg Neutrophils # Seg Neutrophils # Man Lymphocytes # (Manual) Monocytes # (Manual) PT INR D-Dimer Heparin Anti-Xa Level POC ABG pH ABG pH POC ABG pCO2 POC ABG pO2 ABG pO2 104.0 H ABG HCO3 ABG O2 Saturation ABG Base Excess -2.1 L ABG Hemoglobin 7.3 L Oxyhemoglobin Sodium Potassium Chloride Carbon Dioxide BUN 64 H Creatinine 8.2 H Glucose 103 H POC Glucose 118 H Lactic Acid Calcium 7.3 L Ionized Calcium Phosphorus Magnesium Iron TIBC Ferritin Total Bilirubin Direct Bilirubin AST ALT Alkaline Phosphatase Total Creatine Kinase CK-MB (CK-2) Troponin T C-Reactive Protein Serum Total Protein Total Protein Albumin Fztyw-3-Ahttewblm Pihzx-3-Byildbnjq PEP Interpretation Triglycerides LDL Cholesterol Direct HDL Cholesterol Free T4 PTH Intact Urine WBC (Auto) Urine Creatinine Salicylates Acetaminophen Crossmatch 04/06/19 04/07/19 04/07/19 12:02 05:40 05:40 WBC RBC 2.59 L Hgb 7.9 L Hct 23.8 L MCV MCH MCHC RDW 15.8 H Plt Count 89 L Lymph % (Auto) Ransom % (Auto) 10.3 H Eos % (Auto) Lymph # 1.1 L Ransom # Eos # Seg Neutrophils % Seg Neuts % (Manual) Lymphocytes % (Manual) Monocytes % (Manual) Nucleated RBC % Seg Neutrophils # Seg Neutrophils # Man Lymphocytes # (Manual) Monocytes # (Manual) PT INR D-Dimer Heparin Anti-Xa Level POC ABG pH ABG pH POC ABG pCO2 POC ABG pO2 ABG pO2 ABG HCO3 ABG O2 Saturation ABG Base Excess ABG Hemoglobin Oxyhemoglobin Sodium 136 L Potassium 3.5 L Chloride Carbon Dioxide BUN 46 H Creatinine 6.2 H Glucose POC Glucose 108 H Lactic Acid Calcium 7.9 L Ionized Calcium Phosphorus Magnesium Iron TIBC Ferritin Total Bilirubin Direct Bilirubin AST ALT Alkaline Phosphatase Total Creatine Kinase CK-MB (CK-2) Troponin T C-Reactive Protein Serum Total Protein Total Protein Albumin Dzmjv-0-Hjooyrkat Sbolg-7-Jiglonwqk PEP Interpretation Triglycerides LDL Cholesterol Direct HDL Cholesterol Free T4 PTH Intact Urine WBC (Auto) Urine Creatinine Salicylates Acetaminophen Crossmatch 04/07/19 04/09/19 04/09/19 12:57 04:28 04:28 WBC RBC 2.85 L Hgb 8.7 L Hct 26.2 L MCV MCH MCHC RDW 15.6 H Plt Count Lymph % (Auto) [place] % (Auto) 10.4 H Eos % (Auto) Lymph # 1.0 L [place] # Eos # Seg Neutrophils % 73.3 H Seg Neuts % (Manual) Lymphocytes % (Manual) Monocytes % (Manual) Nucleated RBC % Seg Neutrophils # Seg Neutrophils # Man Lymphocytes # (Manual) Monocytes # (Manual) PT INR D-Dimer Heparin Anti-Xa Level POC ABG pH ABG pH POC ABG pCO2 POC ABG pO2 107 H ABG pO2 ABG HCO3 ABG O2 Saturation ABG Base Excess ABG Hemoglobin Oxyhemoglobin Sodium Potassium 3.5 L Chloride 97.8 L Carbon Dioxide BUN 62 H Creatinine 8.1 H Glucose POC Glucose Lactic Acid Calcium 8.2 L Ionized Calcium Phosphorus 5.10 H Magnesium Iron TIBC Ferritin Total Bilirubin Direct Bilirubin AST ALT Alkaline Phosphatase Total Creatine Kinase CK-MB (CK-2) Troponin T C-Reactive Protein Serum Total Protein Total Protein Albumin Owttn-5-Gckvldulb Thzrt-5-Xheqlmpnf PEP Interpretation Triglycerides LDL Cholesterol Direct HDL Cholesterol Free T4 PTH Intact Urine WBC (Auto) Urine Creatinine Salicylates Acetaminophen Crossmatch 04/10/19 04/11/19 04/11/19 18:15 00:25 04:16 WBC 11.5 H RBC 2.91 L Hgb 8.9 L Hct 27.6 L MCV 95 H MCH MCHC RDW 17.5 H Plt Count Lymph % (Auto) [place] % (Auto) Eos % (Auto) Lymph # [place] # Eos # Seg Neutrophils % Seg Neuts % (Manual) 71.0 H Lymphocytes % (Manual) Monocytes % (Manual) 8.0 H Nucleated RBC % Seg Neutrophils # Seg Neutrophils # Man 8.2 H Lymphocytes # (Manual) Monocytes # (Manual) 0.9 H PT INR D-Dimer Heparin Anti-Xa Level POC ABG pH ABG pH POC ABG pCO2 POC ABG pO2 ABG pO2 ABG HCO3 ABG O2 Saturation ABG Base Excess ABG Hemoglobin Oxyhemoglobin Sodium Potassium Chloride Carbon Dioxide BUN Creatinine Glucose POC Glucose 109 H 114 H Lactic Acid Calcium Ionized Calcium Phosphorus Magnesium Iron TIBC Ferritin Total Bilirubin Direct Bilirubin AST ALT Alkaline Phosphatase Total Creatine Kinase CK-MB (CK-2) Troponin T C-Reactive Protein Serum Total Protein Total Protein Albumin Cyhqa-6-Kqstjoeep Apkkg-9-Rmqpqvycd PEP Interpretation Triglycerides LDL Cholesterol Direct HDL Cholesterol Free T4 PTH Intact Urine WBC (Auto) Urine Creatinine Salicylates Acetaminophen Crossmatch 04/11/19 04/11/19 04/11/19 06:47 09:21 12:15 WBC RBC Hgb Hct MCV MCH MCHC RDW Plt Count Lymph % (Auto) [place] % (Auto) Eos % (Auto) Lymph # [place] # Eos # Seg Neutrophils % Seg Neuts % (Manual) Lymphocytes % (Manual) Monocytes % (Manual) Nucleated RBC % Seg Neutrophils # Seg Neutrophils # Man Lymphocytes # (Manual) Monocytes # (Manual) PT INR D-Dimer Heparin Anti-Xa Level POC ABG pH ABG pH POC ABG pCO2 POC ABG pO2 ABG pO2 ABG HCO3 ABG O2 Saturation ABG Base Excess ABG Hemoglobin Oxyhemoglobin Sodium Potassium 3.5 L Chloride Carbon Dioxide BUN 45 H Creatinine 6.0 H Glucose 113 H POC Glucose 106 H 109 H Lactic Acid Calcium Ionized Calcium Phosphorus Magnesium Iron TIBC Ferritin Total Bilirubin Direct Bilirubin AST ALT Alkaline Phosphatase Total Creatine Kinase CK-MB (CK-2) Troponin T C-Reactive Protein Serum Total Protein Total Protein Albumin Wsamm-2-Wfaokwntn Bciji-3-Hcqtujbag PEP Interpretation Triglycerides LDL Cholesterol Direct HDL Cholesterol Free T4 PTH Intact Urine WBC (Auto) Urine Creatinine Salicylates Acetaminophen Crossmatch 04/11/19 04/12/19 04/12/19 18:42 12:13 23:52 WBC RBC Hgb Hct MCV MCH MCHC RDW Plt Count Lymph % (Auto) [place] % (Auto) Eos % (Auto) Lymph # [place] # Eos # Seg Neutrophils % Seg Neuts % (Manual) Lymphocytes % (Manual) Monocytes % (Manual) Nucleated RBC % Seg Neutrophils # Seg Neutrophils # Man Lymphocytes # (Manual) Monocytes # (Manual) PT INR D-Dimer Heparin Anti-Xa Level POC ABG pH ABG pH POC ABG pCO2 POC ABG pO2 ABG pO2 ABG HCO3 ABG O2 Saturation ABG Base Excess ABG Hemoglobin Oxyhemoglobin Sodium Potassium Chloride Carbon Dioxide BUN Creatinine Glucose POC Glucose 107 H 115 H 124 H Lactic Acid Calcium Ionized Calcium Phosphorus Magnesium Iron TIBC Ferritin Total Bilirubin Direct Bilirubin AST ALT Alkaline Phosphatase Total Creatine Kinase CK-MB (CK-2) Troponin T C-Reactive Protein Serum Total Protein Total Protein Albumin Ghjme-8-Rpksxccdz Iswli-8-Pbnvrocuj PEP Interpretation Triglycerides LDL Cholesterol Direct HDL Cholesterol Free T4 PTH Intact Urine WBC (Auto) Urine Creatinine Salicylates Acetaminophen Crossmatch 04/13/19 04/13/19 04/13/19 05:00 05:00 05:47 WBC 11.7 H RBC 2.97 L Hgb 8.8 L Hct 27.3 L MCV MCH MCHC RDW 16.1 H Plt Count Lymph % (Auto) 9.5 L [place] % (Auto) 9.9 H Eos % (Auto) Lymph # 1.1 L [place] # 1.2 H Eos # Seg Neutrophils % 78.6 H Seg Neuts % (Manual) Lymphocytes % (Manual) Monocytes % (Manual) Nucleated RBC % Seg Neutrophils # 9.2 H Seg Neutrophils # Man Lymphocytes # (Manual) Monocytes # (Manual) PT INR D-Dimer Heparin Anti-Xa Level POC ABG pH ABG pH POC ABG pCO2 POC ABG pO2 ABG pO2 ABG HCO3 ABG O2 Saturation ABG Base Excess ABG Hemoglobin Oxyhemoglobin Sodium Potassium 3.5 L Chloride Carbon Dioxide BUN 42 H Creatinine 4.6 H Glucose 106 H POC Glucose 107 H Lactic Acid Calcium 10.6 H D Ionized Calcium Phosphorus 5.90 H Magnesium Iron TIBC Ferritin Total Bilirubin Direct Bilirubin AST ALT Alkaline Phosphatase Total Creatine Kinase CK-MB (CK-2) Troponin T C-Reactive Protein Serum Total Protein Total Protein 5.8 L Albumin 2.5 L Luisg-9-Maiqwlntz Mzoen-3-Etpydcswz PEP Interpretation Triglycerides LDL Cholesterol Direct HDL Cholesterol Free T4 PTH Intact Urine WBC (Auto) Urine Creatinine Salicylates Acetaminophen Crossmatch 04/13/19 04/14/19 04/14/19 17:32 00:00 03:55 WBC RBC Hgb Hct MCV MCH MCHC RDW Plt Count Lymph % (Auto) [place] % (Auto) Eos % (Auto) Lymph # [place] # Eos # Seg Neutrophils % Seg Neuts % (Manual) Lymphocytes % (Manual) Monocytes % (Manual) Nucleated RBC % Seg Neutrophils # Seg Neutrophils # Man Lymphocytes # (Manual) Monocytes # (Manual) PT INR D-Dimer Heparin Anti-Xa Level POC ABG pH ABG pH POC ABG pCO2 POC ABG pO2 ABG pO2 ABG HCO3 ABG O2 Saturation ABG Base Excess ABG Hemoglobin Oxyhemoglobin Sodium Potassium 3.0 L Chloride Carbon Dioxide BUN 30 H Creatinine 3.1 H Glucose POC Glucose 112 H 120 H Lactic Acid Calcium 10.8 H Ionized Calcium Phosphorus Magnesium Iron TIBC Ferritin Total Bilirubin Direct Bilirubin AST ALT Alkaline Phosphatase Total Creatine Kinase CK-MB (CK-2) Troponin T C-Reactive Protein Serum Total Protein Total Protein Albumin Fdunj-3-Qapaevivl Pbwfu-0-Jnryjjjvf PEP Interpretation Triglycerides LDL Cholesterol Direct HDL Cholesterol Free T4 PTH Intact Urine WBC (Auto) Urine Creatinine Salicylates Acetaminophen Crossmatch 04/14/19 04/14/19 04/15/19 11:56 23:28 05:11 WBC 13.0 H RBC 2.93 L Hgb 8.6 L Hct 26.5 L MCV MCH MCHC RDW 16.5 H Plt Count Lymph % (Auto) 12.2 L [place] % (Auto) 9.1 H Eos % (Auto) Lymph # [place] # 1.2 H Eos # Seg Neutrophils % 77.6 H Seg Neuts % (Manual) Lymphocytes % (Manual) Monocytes % (Manual) Nucleated RBC % Seg Neutrophils # 10.1 H Seg Neutrophils # Man Lymphocytes # (Manual) Monocytes # (Manual) PT INR D-Dimer Heparin Anti-Xa Level POC ABG pH ABG pH POC ABG pCO2 POC ABG pO2 ABG pO2 ABG HCO3 ABG O2 Saturation ABG Base Excess ABG Hemoglobin Oxyhemoglobin Sodium Potassium Chloride Carbon Dioxide BUN Creatinine Glucose POC Glucose 109 H 112 H Lactic Acid Calcium Ionized Calcium Phosphorus Magnesium Iron TIBC Ferritin Total Bilirubin Direct Bilirubin AST ALT Alkaline Phosphatase Total Creatine Kinase CK-MB (CK-2) Troponin T C-Reactive Protein Serum Total Protein Total Protein Albumin Rftqy-4-Ycjwbltdr Zybfs-4-Wjupjreju PEP Interpretation Triglycerides LDL Cholesterol Direct HDL Cholesterol Free T4 PTH Intact Urine WBC (Auto) Urine Creatinine Salicylates Acetaminophen Crossmatch 04/15/19 04/15/19 04/15/19 05:11 05:31 18:03 WBC RBC Hgb Hct MCV MCH MCHC RDW Plt Count Lymph % (Auto) [place] % (Auto) Eos % (Auto) Lymph # [place] # Eos # Seg Neutrophils % Seg Neuts % (Manual) Lymphocytes % (Manual) Monocytes % (Manual) Nucleated RBC % Seg Neutrophils # Seg Neutrophils # Man Lymphocytes # (Manual) Monocytes # (Manual) PT INR D-Dimer Heparin Anti-Xa Level POC ABG pH ABG pH POC ABG pCO2 POC ABG pO2 ABG pO2 ABG HCO3 ABG O2 Saturation ABG Base Excess ABG Hemoglobin Oxyhemoglobin Sodium Potassium 3.2 L Chloride Carbon Dioxide BUN 44 H Creatinine 3.6 H Glucose 106 H POC Glucose 110 H 121 H Lactic Acid Calcium 12.0 H Ionized Calcium Phosphorus 5.00 H Magnesium Iron TIBC Ferritin Total Bilirubin Direct Bilirubin AST ALT Alkaline Phosphatase Total Creatine Kinase CK-MB (CK-2) Troponin T C-Reactive Protein Serum Total Protein Total Protein Albumin Eivij-1-Lkbvxplzm Bdxcf-8-Crnvxzijy PEP Interpretation Triglycerides LDL Cholesterol Direct HDL Cholesterol Free T4 PTH Intact Urine WBC (Auto) Urine Creatinine Salicylates Acetaminophen Crossmatch 04/16/19 04/16/19 04/17/19 05:07 05:07 04:15 WBC 12.6 H RBC 3.12 L Hgb 9.0 L Hct 28.2 L MCV MCH MCHC RDW 16.6 H Plt Count Lymph % (Auto) 10.3 L [place] % (Auto) 9.8 H Eos % (Auto) Lymph # [place] # 1.2 H Eos # Seg Neutrophils % 78.2 H Seg Neuts % (Manual) Lymphocytes % (Manual) Monocytes % (Manual) Nucleated RBC % Seg Neutrophils # 9.9 H Seg Neutrophils # Man Lymphocytes # (Manual) Monocytes # (Manual) PT INR D-Dimer Heparin Anti-Xa Level POC ABG pH ABG pH POC ABG pCO2 POC ABG pO2 ABG pO2 ABG HCO3 ABG O2 Saturation ABG Base Excess ABG Hemoglobin Oxyhemoglobin Sodium 147 H 150 H Potassium 3.5 L 3.1 L Chloride Carbon Dioxide 32 H BUN 54 H 65 H Creatinine 3.8 H 4.0 H Glucose 102 H 107 H POC Glucose Lactic Acid Calcium 11.7 H 12.0 H Ionized Calcium Phosphorus 5.40 H Magnesium Iron TIBC Ferritin Total Bilirubin Direct Bilirubin AST ALT Alkaline Phosphatase Total Creatine Kinase CK-MB (CK-2) Troponin T C-Reactive Protein 7.10 H Serum Total Protein Total Protein Albumin Torvu-1-Myxvrtdgs Mtxyq-0-Fpjlbgkef PEP Interpretation Triglycerides LDL Cholesterol Direct HDL Cholesterol Free T4 PTH Intact Urine WBC (Auto) Urine Creatinine Salicylates Acetaminophen Crossmatch 04/17/19 04/17/19 04/17/19 04:15 06:05 12:49 WBC 15.8 H RBC 3.32 L Hgb 9.5 L Hct 29.9 L MCV MCH MCHC RDW 16.9 H Plt Count Lymph % (Auto) 12.6 L [place] % (Auto) 11.1 H Eos % (Auto) Lymph # [place] # 1.7 H Eos # Seg Neutrophils % 74.7 H Seg Neuts % (Manual) Lymphocytes % (Manual) Monocytes % (Manual) Nucleated RBC % Seg Neutrophils # 11.8 H Seg Neutrophils # Man Lymphocytes # (Manual) Monocytes # (Manual) PT INR D-Dimer Heparin Anti-Xa Level POC ABG pH ABG pH POC ABG pCO2 POC ABG pO2 ABG pO2 ABG HCO3 ABG O2 Saturation ABG Base Excess ABG Hemoglobin Oxyhemoglobin Sodium Potassium Chloride Carbon Dioxide BUN Creatinine Glucose POC Glucose 111 H 108 H Lactic Acid Calcium Ionized Calcium Phosphorus Magnesium Iron TIBC Ferritin Total Bilirubin Direct Bilirubin AST ALT Alkaline Phosphatase Total Creatine Kinase CK-MB (CK-2) Troponin T C-Reactive Protein Serum Total Protein Total Protein Albumin Bktko-9-Rmvremqbn Twkux-1-Erfgcymzq PEP Interpretation Triglycerides LDL Cholesterol Direct HDL Cholesterol Free T4 PTH Intact Urine WBC (Auto) Urine Creatinine Salicylates Acetaminophen Crossmatch 04/18/19 04/18/19 04/18/19 00:23 04:41 04:41 WBC 19.4 H RBC 3.03 L Hgb 8.6 L Hct 27.5 L MCV MCH MCHC 31 L RDW 16.9 H Plt Count Lymph % (Auto) [place] % (Auto) Eos % (Auto) Lymph # [place] # Eos # Seg Neutrophils % Seg Neuts % (Manual) Lymphocytes % (Manual) Monocytes % (Manual) Nucleated RBC % Seg Neutrophils # Seg Neutrophils # Man Lymphocytes # (Manual) Monocytes # (Manual) PT INR D-Dimer Heparin Anti-Xa Level POC ABG pH ABG pH POC ABG pCO2 POC ABG pO2 ABG pO2 ABG HCO3 ABG O2 Saturation ABG Base Excess ABG Hemoglobin Oxyhemoglobin Sodium 152 H Potassium 3.0 L Chloride Carbon Dioxide BUN 80 H Creatinine 4.3 H Glucose 103 H POC Glucose 115 H Lactic Acid Calcium 11.4 H Ionized Calcium Phosphorus Magnesium Iron TIBC Ferritin Total Bilirubin Direct Bilirubin AST ALT Alkaline Phosphatase Total Creatine Kinase CK-MB (CK-2) Troponin T C-Reactive Protein Serum Total Protein Total Protein Albumin Wwdpn-0-Pbuicbikv Vhfcc-8-Xmpasdrdk PEP Interpretation Triglycerides LDL Cholesterol Direct HDL Cholesterol Free T4 PTH Intact Urine WBC (Auto) Urine Creatinine Salicylates Acetaminophen Crossmatch 04/18/19 04/18/19 04/18/19 06:17 12:16 18:10 WBC RBC Hgb Hct MCV MCH MCHC RDW Plt Count Lymph % (Auto) [place] % (Auto) Eos % (Auto) Lymph # [place] # Eos # Seg Neutrophils % Seg Neuts % (Manual) Lymphocytes % (Manual) Monocytes % (Manual) Nucleated RBC % Seg Neutrophils # Seg Neutrophils # Man Lymphocytes # (Manual) Monocytes # (Manual) PT INR D-Dimer Heparin Anti-Xa Level POC ABG pH ABG pH POC ABG pCO2 POC ABG pO2 ABG pO2 ABG HCO3 ABG O2 Saturation ABG Base Excess ABG Hemoglobin Oxyhemoglobin Sodium Potassium Chloride Carbon Dioxide BUN Creatinine Glucose POC Glucose 124 H 119 H 111 H Lactic Acid Calcium Ionized Calcium Phosphorus Magnesium Iron TIBC Ferritin Total Bilirubin Direct Bilirubin AST ALT Alkaline Phosphatase Total Creatine Kinase CK-MB (CK-2) Troponin T C-Reactive Protein Serum Total Protein Total Protein Albumin Dtinz-3-Uisjlhngs Dicum-3-Fsrxtqtfi PEP Interpretation Triglycerides LDL Cholesterol Direct HDL Cholesterol Free T4 PTH Intact Urine WBC (Auto) Urine Creatinine Salicylates Acetaminophen Crossmatch 04/19/19 04/19/19 04/20/19 03:49 05:27 09:09 WBC RBC Hgb Hct MCV MCH MCHC RDW Plt Count Lymph % (Auto) [place] % (Auto) Eos % (Auto) Lymph # [place] # Eos # Seg Neutrophils % Seg Neuts % (Manual) Lymphocytes % (Manual) Monocytes % (Manual) Nucleated RBC % Seg Neutrophils # Seg Neutrophils # Man Lymphocytes # (Manual) Monocytes # (Manual) PT INR D-Dimer Heparin Anti-Xa Level POC ABG pH ABG pH POC ABG pCO2 POC ABG pO2 ABG pO2 ABG HCO3 ABG O2 Saturation ABG Base Excess ABG Hemoglobin Oxyhemoglobin Sodium 147 H 150 H Potassium 3.3 L Chloride 108.9 H Carbon Dioxide BUN 45 H 70 H Creatinine 2.9 H 4.1 H Glucose 105 H POC Glucose 124 H Lactic Acid Calcium 10.6 H 11.6 H Ionized Calcium Phosphorus Magnesium Iron TIBC Ferritin Total Bilirubin Direct Bilirubin AST ALT Alkaline Phosphatase Total Creatine Kinase CK-MB (CK-2) Troponin T C-Reactive Protein Serum Total Protein Total Protein Albumin Jndfr-6-Zlfkksmdf Tctri-5-Fdrcfxmao PEP Interpretation Triglycerides LDL Cholesterol Direct HDL Cholesterol Free T4 PTH Intact Urine WBC (Auto) Urine Creatinine Salicylates Acetaminophen Crossmatch 04/20/19 04/20/19 04/21/19 12:29 18:45 01:34 WBC RBC Hgb Hct MCV MCH MCHC RDW Plt Count Lymph % (Auto) [place] % (Auto) Eos % (Auto) Lymph # [place] # Eos # Seg Neutrophils % Seg Neuts % (Manual) Lymphocytes % (Manual) Monocytes % (Manual) Nucleated RBC % Seg Neutrophils # Seg Neutrophils # Man Lymphocytes # (Manual) Monocytes # (Manual) PT INR D-Dimer Heparin Anti-Xa Level POC ABG pH ABG pH POC ABG pCO2 POC ABG pO2 ABG pO2 ABG HCO3 ABG O2 Saturation ABG Base Excess ABG Hemoglobin Oxyhemoglobin Sodium Potassium Chloride Carbon Dioxide BUN 40 H Creatinine 2.6 H Glucose 104 H POC Glucose 131 H 134 H Lactic Acid Calcium 11.0 H Ionized Calcium Phosphorus Magnesium Iron TIBC Ferritin Total Bilirubin Direct Bilirubin AST ALT Alkaline Phosphatase Total Creatine Kinase CK-MB (CK-2) Troponin T C-Reactive Protein Serum Total Protein Total Protein Albumin Wcddo-6-Vniskqxts Arebn-1-Wwxdqteog PEP Interpretation Triglycerides LDL Cholesterol Direct HDL Cholesterol Free T4 PTH Intact Urine WBC (Auto) Urine Creatinine Salicylates Acetaminophen Crossmatch 04/21/19 04/21/19 04/22/19 04:22 04:22 04:24 WBC 14.2 H 14.3 H RBC 3.02 L 3.57 L Hgb 8.7 L 10.1 L Hct 27.2 L 32.1 L MCV MCH MCHC RDW 16.7 H 17.2 H Plt Count Lymph % (Auto) [place] % (Auto) Eos % (Auto) Lymph # [place] # Eos # Seg Neutrophils % Seg Neuts % (Manual) Lymphocytes % (Manual) Monocytes % (Manual) Nucleated RBC % Seg Neutrophils # Seg Neutrophils # Man Lymphocytes # (Manual) Monocytes # (Manual) PT INR D-Dimer Heparin Anti-Xa Level POC ABG pH ABG pH POC ABG pCO2 POC ABG pO2 ABG pO2 ABG HCO3 ABG O2 Saturation ABG Base Excess ABG Hemoglobin Oxyhemoglobin Sodium Potassium Chloride Carbon Dioxide BUN Creatinine Glucose POC Glucose Lactic Acid Calcium Ionized Calcium Phosphorus Magnesium Iron TIBC Ferritin Total Bilirubin Direct Bilirubin AST ALT Alkaline Phosphatase Total Creatine Kinase CK-MB (CK-2) Troponin T C-Reactive Protein Serum Total Protein 5.7 L Total Protein Albumin 2.3 L Hdijf-1-Bprijhvur 0.5 H Zjypm-1-Iaegjwxxu 1.0 H PEP Interpretation see below H Triglycerides LDL Cholesterol Direct HDL Cholesterol Free T4 PTH Intact Urine WBC (Auto) Urine Creatinine Salicylates Acetaminophen Crossmatch 04/22/19 04/22/19 04/22/19 04:24 06:37 11:57 WBC RBC Hgb Hct MCV MCH MCHC RDW Plt Count Lymph % (Auto) [place] % (Auto) Eos % (Auto) Lymph # [place] # Eos # Seg Neutrophils % Seg Neuts % (Manual) Lymphocytes % (Manual) Monocytes % (Manual) Nucleated RBC % Seg Neutrophils # Seg Neutrophils # Man Lymphocytes # (Manual) Monocytes # (Manual) PT INR D-Dimer Heparin Anti-Xa Level POC ABG pH ABG pH POC ABG pCO2 POC ABG pO2 ABG pO2 ABG HCO3 ABG O2 Saturation ABG Base Excess ABG Hemoglobin Oxyhemoglobin Sodium Potassium Chloride Carbon Dioxide BUN 54 H Creatinine 3.5 H Glucose POC Glucose 113 H 110 H Lactic Acid Calcium 11.4 H Ionized Calcium Phosphorus Magnesium Iron TIBC Ferritin Total Bilirubin Direct Bilirubin AST ALT Alkaline Phosphatase Total Creatine Kinase CK-MB (CK-2) Troponin T C-Reactive Protein Serum Total Protein Total Protein Albumin Kijko-8-Ovshcqpeo Aovct-5-Vmzgdvstw PEP Interpretation Triglycerides LDL Cholesterol Direct HDL Cholesterol Free T4 PTH Intact Urine WBC (Auto) Urine Creatinine Salicylates Acetaminophen Crossmatch 04/22/19 04/23/19 04/23/19 18:33 04:06 04:06 WBC 16.1 H RBC 3.36 L Hgb 9.8 L Hct 30.8 L MCV MCH MCHC RDW 17.7 H Plt Count Lymph % (Auto) 9.9 L [place] % (Auto) Eos % (Auto) Lymph # [place] # Eos # Seg Neutrophils % 84.2 H Seg Neuts % (Manual) Lymphocytes % (Manual) Monocytes % (Manual) Nucleated RBC % Seg Neutrophils # 13.6 H Seg Neutrophils # Man Lymphocytes # (Manual) Monocytes # (Manual) PT INR D-Dimer Heparin Anti-Xa Level POC ABG pH ABG pH POC ABG pCO2 POC ABG pO2 ABG pO2 ABG HCO3 ABG O2 Saturation ABG Base Excess ABG Hemoglobin Oxyhemoglobin Sodium Potassium Chloride Carbon Dioxide BUN 59 H Creatinine 3.8 H Glucose POC Glucose 120 H Lactic Acid Calcium 12.3 H* Ionized Calcium Phosphorus 5.70 H Magnesium Iron TIBC Ferritin Total Bilirubin Direct Bilirubin AST ALT Alkaline Phosphatase Total Creatine Kinase CK-MB (CK-2) Troponin T C-Reactive Protein Serum Total Protein Total Protein Albumin 3.2 L Fodrc-1-Kaqsgjmla Uosmm-7-Lwuepigiu PEP Interpretation Triglycerides LDL Cholesterol Direct HDL Cholesterol Free T4 PTH Intact Urine WBC (Auto) Urine Creatinine Salicylates Acetaminophen Crossmatch 04/23/19 04/24/19 04/24/19 18:06 04:12 04:12 WBC 18.0 H RBC 3.46 L Hgb 9.8 L Hct 31.2 L MCV MCH MCHC 31 L RDW 17.5 H Plt Count Lymph % (Auto) 11.1 L [place] % (Auto) Eos % (Auto) Lymph # [place] # Eos # Seg Neutrophils % 81.9 H Seg Neuts % (Manual) Lymphocytes % (Manual) Monocytes % (Manual) Nucleated RBC % Seg Neutrophils # 14.7 H Seg Neutrophils # Man Lymphocytes # (Manual) Monocytes # (Manual) PT INR D-Dimer Heparin Anti-Xa Level POC ABG pH ABG pH POC ABG pCO2 POC ABG pO2 ABG pO2 ABG HCO3 ABG O2 Saturation ABG Base Excess ABG Hemoglobin Oxyhemoglobin Sodium Potassium Chloride Carbon Dioxide BUN 56 H Creatinine 3.6 H Glucose POC Glucose 124 H Lactic Acid Calcium 12.6 H* Ionized Calcium Phosphorus Magnesium Iron TIBC Ferritin Total Bilirubin Direct Bilirubin AST ALT Alkaline Phosphatase Total Creatine Kinase CK-MB (CK-2) Troponin T C-Reactive Protein Serum Total Protein Total Protein Albumin 3.2 L Iyyut-4-Kcxqygsoi Fehuy-9-Qnfmqplwf PEP Interpretation Triglycerides LDL Cholesterol Direct HDL Cholesterol Free T4 PTH Intact Urine WBC (Auto) Urine Creatinine Salicylates Acetaminophen Crossmatch 04/24/19 04/24/19 04/25/19 06:21 11:47 05:58 WBC 18.0 H RBC 2.98 L Hgb 8.3 L Hct 26.5 L MCV MCH MCHC 31 L RDW 17.9 H Plt Count Lymph % (Auto) 10.1 L [place] % (Auto) Eos % (Auto) Lymph # [place] # 0.9 H Eos # Seg Neutrophils % 82.8 H Seg Neuts % (Manual) Lymphocytes % (Manual) Monocytes % (Manual) Nucleated RBC % Seg Neutrophils # 15.0 H Seg Neutrophils # Man Lymphocytes # (Manual) Monocytes # (Manual) PT INR D-Dimer Heparin Anti-Xa Level POC ABG pH ABG pH POC ABG pCO2 POC ABG pO2 ABG pO2 ABG HCO3 ABG O2 Saturation ABG Base Excess ABG Hemoglobin Oxyhemoglobin Sodium Potassium Chloride Carbon Dioxide BUN Creatinine Glucose POC Glucose 132 H 106 H Lactic Acid Calcium Ionized Calcium Phosphorus Magnesium Iron TIBC Ferritin Total Bilirubin Direct Bilirubin AST ALT Alkaline Phosphatase Total Creatine Kinase CK-MB (CK-2) Troponin T C-Reactive Protein Serum Total Protein Total Protein Albumin Hqlhb-8-Cpknqrutz Ymfdn-9-Dknpmwsru PEP Interpretation Triglycerides LDL Cholesterol Direct HDL Cholesterol Free T4 PTH Intact Urine WBC (Auto) Urine Creatinine Salicylates Acetaminophen Crossmatch 04/25/19 04/26/19 04/26/19 05:58 05:57 06:08 WBC RBC Hgb Hct MCV MCH MCHC RDW Plt Count Lymph % (Auto) [place] % (Auto) Eos % (Auto) Lymph # [place] # Eos # Seg Neutrophils % Seg Neuts % (Manual) Lymphocytes % (Manual) Monocytes % (Manual) Nucleated RBC % Seg Neutrophils # Seg Neutrophils # Man Lymphocytes # (Manual) Monocytes # (Manual) PT INR D-Dimer Heparin Anti-Xa Level POC ABG pH ABG pH POC ABG pCO2 POC ABG pO2 ABG pO2 ABG HCO3 ABG O2 Saturation ABG Base Excess ABG Hemoglobin Oxyhemoglobin Sodium Potassium 3.2 L Chloride Carbon Dioxide BUN 52 H 48 H Creatinine 3.2 H 2.9 H Glucose 108 H 112 H POC Glucose 109 H Lactic Acid Calcium 11.4 H 12.5 H* Ionized Calcium Phosphorus 5.90 H Magnesium Iron TIBC Ferritin Total Bilirubin Direct Bilirubin AST ALT Alkaline Phosphatase Total Creatine Kinase CK-MB (CK-2) Troponin T C-Reactive Protein Serum Total Protein Total Protein Albumin 3.0 L Hmhho-9-Wifsefzcw Nzjvw-8-Rosqwsufy PEP Interpretation Triglycerides LDL Cholesterol Direct HDL Cholesterol Free T4 PTH Intact Urine WBC (Auto) Urine Creatinine Salicylates Acetaminophen Crossmatch 04/26/19 04/26/19 04/27/19 07:22 13:39 05:05 WBC 11.9 H RBC 3.01 L Hgb 8.6 L Hct 26.3 L MCV MCH MCHC RDW 17.6 H Plt Count Lymph % (Auto) 11.9 L [place] % (Auto) Eos % (Auto) Lymph # [place] # Eos # Seg Neutrophils % 78.3 H Seg Neuts % (Manual) Lymphocytes % (Manual) Monocytes % (Manual) Nucleated RBC % Seg Neutrophils # 9.4 H Seg Neutrophils # Man Lymphocytes # (Manual) Monocytes # (Manual) PT INR D-Dimer Heparin Anti-Xa Level POC ABG pH ABG pH POC ABG pCO2 POC ABG pO2 ABG pO2 ABG HCO3 ABG O2 Saturation ABG Base Excess ABG Hemoglobin Oxyhemoglobin Sodium Potassium Chloride Carbon Dioxide BUN 46 H Creatinine 2.8 H Glucose POC Glucose Lactic Acid Calcium > 13.0 H* 12.2 H* Ionized Calcium Phosphorus Magnesium Iron TIBC Ferritin Total Bilirubin Direct Bilirubin AST ALT Alkaline Phosphatase Total Creatine Kinase CK-MB (CK-2) Troponin T C-Reactive Protein Serum Total Protein Total Protein Albumin [id number]-1-Djcsdbacd Fshds-1-Jlpsvginl PEP Interpretation Triglycerides LDL Cholesterol Direct HDL Cholesterol Free T4 PTH Intact Urine WBC (Auto) Urine Creatinine Salicylates Acetaminophen Crossmatch 04/27/19 04/28/19 04/29/19 05:05 05:17 14:14 WBC RBC Hgb Hct MCV MCH MCHC RDW Plt Count Lymph % (Auto) Ransom % (Auto) Eos % (Auto) Lymph # Ransom # Eos # Seg Neutrophils % Seg Neuts % (Manual) Lymphocytes % (Manual) Monocytes % (Manual) Nucleated RBC % Seg Neutrophils # Seg Neutrophils # Man Lymphocytes # (Manual) Monocytes # (Manual) PT INR D-Dimer Heparin Anti-Xa Level POC ABG pH ABG pH POC ABG pCO2 POC ABG pO2 ABG pO2 ABG HCO3 ABG O2 Saturation ABG Base Excess ABG Hemoglobin Oxyhemoglobin Sodium 136 L Potassium 3.2 L 3.4 L Chloride Carbon Dioxide BUN 40 H 34 H 33 H Creatinine 2.5 H 2.0 H 1.9 H Glucose 113 H 107 H POC Glucose Lactic Acid Calcium 12.3 H* 12.1 H* 11.5 H Ionized Calcium Phosphorus Magnesium Iron TIBC Ferritin Total Bilirubin Direct Bilirubin AST ALT Alkaline Phosphatase Total Creatine Kinase CK-MB (CK-2) Troponin T C-Reactive Protein Serum Total Protein Total Protein 6.2 L Albumin 2.8 L Hwfcq-0-Sotntsjnm Lblrx-7-Sswermlzo PEP Interpretation Triglycerides LDL Cholesterol Direct HDL Cholesterol Free T4 PTH Intact Urine WBC (Auto) Urine Creatinine Salicylates Acetaminophen Crossmatch 04/29/19 04/29/19 04/30/19 14:14 14:14 06:47 WBC RBC Hgb Hct MCV MCH MCHC RDW Plt Count Lymph % (Auto) [place] % (Auto) Eos % (Auto) Lymph # [place] # Eos # Seg Neutrophils % Seg Neuts % (Manual) Lymphocytes % (Manual) Monocytes % (Manual) Nucleated RBC % Seg Neutrophils # Seg Neutrophils # Man Lymphocytes # (Manual) Monocytes # (Manual) PT INR D-Dimer Heparin Anti-Xa Level POC ABG pH ABG pH POC ABG pCO2 POC ABG pO2 ABG pO2 ABG HCO3 ABG O2 Saturation ABG Base Excess ABG Hemoglobin Oxyhemoglobin Sodium Potassium 3.2 L Chloride Carbon Dioxide 21 L BUN 26 H Creatinine 1.8 H Glucose POC Glucose Lactic Acid Calcium 10.8 H Ionized Calcium 7.2 H* Phosphorus Magnesium Iron TIBC Ferritin Total Bilirubin Direct Bilirubin AST ALT Alkaline Phosphatase Total Creatine Kinase CK-MB (CK-2) Troponin T C-Reactive Protein Serum Total Protein Total Protein Albumin Jjxxq-8-Uekwxclfh Fgxrn-2-Xinpnyhzd PEP Interpretation Triglycerides LDL Cholesterol Direct HDL Cholesterol Free T4 PTH Intact 8.83 L Urine WBC (Auto) Urine Creatinine Salicylates Acetaminophen Crossmatch 04/30/19 05/01/19 05/01/19 12:17 06:52 06:52 WBC 15.4 H RBC 3.01 L Hgb 8.4 L Hct 26.2 L MCV MCH MCHC RDW 17.0 H Plt Count Lymph % (Auto) 8.4 L [place] % (Auto) 8.9 H Eos % (Auto) Lymph # [place]ansom # 1.4 H Eos # 0.5 H Seg Neutrophils % 78.7 H Seg Neuts % (Manual) Lymphocytes % (Manual) Monocytes % (Manual) Nucleated RBC % Seg Neutrophils # 12.1 H Seg Neutrophils # Man Lymphocytes # (Manual) Monocytes # (Manual) PT INR D-Dimer Heparin Anti-Xa Level POC ABG pH ABG pH POC ABG pCO2 POC ABG pO2 ABG pO2 ABG HCO3 ABG O2 Saturation ABG Base Excess ABG Hemoglobin Oxyhemoglobin Sodium Potassium 3.0 L Chloride Carbon Dioxide BUN 22 H Creatinine Glucose POC Glucose 106 H Lactic Acid Calcium 11.2 H Ionized Calcium Phosphorus Magnesium Iron TIBC Ferritin Total Bilirubin Direct Bilirubin AST ALT Alkaline Phosphatase Total Creatine Kinase CK-MB (CK-2) Troponin T C-Reactive Protein Serum Total Protein Total Protein Albumin 3.0 L Pcasd-2-Udsoucsgr Oqbon-3-Kqqcvysqt PEP Interpretation Triglycerides LDL Cholesterol Direct HDL Cholesterol Free T4 PTH Intact Urine WBC (Auto) Urine Creatinine Salicylates Acetaminophen Crossmatch 05/01/19 05/01/19 05/02/19 06:52 18:40 05:32 WBC RBC Hgb Hct MCV MCH MCHC RDW Plt Count Lymph % (Auto) [place] % (Auto) Eos % (Auto) Lymph # [place] # Eos # Seg Neutrophils % Seg Neuts % (Manual) Lymphocytes % (Manual) Monocytes % (Manual) Nucleated RBC % Seg Neutrophils # Seg Neutrophils # Man Lymphocytes # (Manual) Monocytes # (Manual) PT INR D-Dimer Heparin Anti-Xa Level POC ABG pH ABG pH POC ABG pCO2 POC ABG pO2 ABG pO2 ABG HCO3 ABG O2 Saturation ABG Base Excess ABG Hemoglobin Oxyhemoglobin Sodium Potassium Chloride Carbon Dioxide BUN Creatinine Glucose POC Glucose 169 H 109 H Lactic Acid Calcium Ionized Calcium Phosphorus Magnesium Iron TIBC Ferritin Total Bilirubin Direct Bilirubin AST ALT Alkaline Phosphatase Total Creatine Kinase CK-MB (CK-2) Troponin T C-Reactive Protein Serum Total Protein 5.7 L Total Protein Albumin 2.5 L Qdlci-7-Isldrotqr 0.5 H Zdisr-2-Zbvrmuggm PEP Interpretation see below H Triglycerides LDL Cholesterol Direct HDL Cholesterol Free T4 PTH Intact Urine WBC (Auto) Urine Creatinine Salicylates Acetaminophen Crossmatch 05/02/19 05/02/19 05/02/19 05:57 05:57 11:43 WBC 14.2 H RBC 2.96 L Hgb 8.3 L Hct 26.0 L MCV MCH MCHC RDW 16.8 H Plt Count Lymph % (Auto) [place] % (Auto) Eos % (Auto) Lymph # [place] # Eos # Seg Neutrophils % Seg Neuts % (Manual) Lymphocytes % (Manual) Monocytes % (Manual) Nucleated RBC % Seg Neutrophils # Seg Neutrophils # Man Lymphocytes # (Manual) Monocytes # (Manual) PT INR D-Dimer Heparin Anti-Xa Level POC ABG pH ABG pH POC ABG pCO2 POC ABG pO2 ABG pO2 ABG HCO3 ABG O2 Saturation ABG Base Excess ABG Hemoglobin Oxyhemoglobin Sodium 136 L Potassium 3.5 L Chloride Carbon Dioxide BUN 21 H Creatinine Glucose POC Glucose 108 H Lactic Acid Calcium 11.1 H Ionized Calcium Phosphorus Magnesium Iron TIBC Ferritin Total Bilirubin Direct Bilirubin AST ALT Alkaline Phosphatase Total Creatine Kinase CK-MB (CK-2) Troponin T C-Reactive Protein Serum Total Protein Total Protein Albumin Eadps-6-Ijhiyqlch Ymksb-7-Fuazvrvah PEP Interpretation Triglycerides LDL Cholesterol Direct HDL Cholesterol Free T4 PTH Intact Urine WBC (Auto) Urine Creatinine Salicylates Acetaminophen Crossmatch 05/03/19 05/03/19 05/04/19 05:37 05:37 06:49 WBC 12.7 H 11.1 H RBC 3.01 L 3.07 L Hgb 8.3 L 8.6 L Hct 26.1 L 26.6 L MCV MCH MCHC RDW 16.9 H 17.3 H Plt Count Lymph % (Auto) [place] % (Auto) 9.0 H Eos % (Auto) 4.9 H Lymph # [place]ansom # 1.0 H Eos # 0.5 H Seg Neutrophils % Seg Neuts % (Manual) Lymphocytes % (Manual) Monocytes % (Manual) Nucleated RBC % Seg Neutrophils # 7.8 H Seg Neutrophils # Man Lymphocytes # (Manual) Monocytes # (Manual) PT INR D-Dimer Heparin Anti-Xa Level POC ABG pH ABG pH POC ABG pCO2 POC ABG pO2 ABG pO2 ABG HCO3 ABG O2 Saturation ABG Base Excess ABG Hemoglobin Oxyhemoglobin Sodium 135 L Potassium 3.3 L Chloride Carbon Dioxide BUN Creatinine Glucose POC Glucose Lactic Acid Calcium 10.9 H Ionized Calcium Phosphorus Magnesium 1.50 L Iron TIBC Ferritin Total Bilirubin Direct Bilirubin AST ALT Alkaline Phosphatase Total Creatine Kinase CK-MB (CK-2) Troponin T C-Reactive Protein Serum Total Protein Total Protein Albumin Zlkfw-6-Pjaqaanzn Rhavi-8-Rxqoebcgj PEP Interpretation Triglycerides LDL Cholesterol Direct HDL Cholesterol Free T4 PTH Intact Urine WBC (Auto) Urine Creatinine Salicylates Acetaminophen Crossmatch 05/04/19 05/04/19 05/04/19 06:49 06:49 11:58 WBC RBC Hgb Hct MCV MCH MCHC RDW Plt Count Lymph % (Auto) [place] % (Auto) Eos % (Auto) Lymph # [place] # Eos # Seg Neutrophils % Seg Neuts % (Manual) Lymphocytes % (Manual) Monocytes % (Manual) Nucleated RBC % Seg Neutrophils # Seg Neutrophils # Man Lymphocytes # (Manual) Monocytes # (Manual) PT 15.5 H INR 1.24 H D-Dimer Heparin Anti-Xa Level POC ABG pH ABG pH POC ABG pCO2 POC ABG pO2 ABG pO2 ABG HCO3 ABG O2 Saturation ABG Base Excess ABG Hemoglobin Oxyhemoglobin Sodium Potassium Chloride Carbon Dioxide 19 L BUN Creatinine Glucose POC Glucose 111 H Lactic Acid Calcium 10.7 H Ionized Calcium Phosphorus Magnesium Iron TIBC Ferritin Total Bilirubin Direct Bilirubin AST ALT Alkaline Phosphatase Total Creatine Kinase CK-MB (CK-2) Troponin T C-Reactive Protein Serum Total Protein Total Protein Albumin Yfidr-9-Quhsfujle Cibsw-7-Uosmvveiq PEP Interpretation Triglycerides LDL Cholesterol Direct HDL Cholesterol Free T4 PTH Intact Urine WBC (Auto) Urine Creatinine Salicylates Acetaminophen Crossmatch 05/05/19 05/05/19 05/07/19 06:14 06:14 05:55 WBC 11.5 H 12.0 H RBC 3.08 L 3.33 L Hgb 8.5 L 9.2 L Hct 26.5 L 28.5 L MCV MCH MCHC RDW 17.1 H 17.6 H Plt Count Lymph % (Auto) [place] % (Auto) Eos % (Auto) 8.2 H Lymph # Ransom # Eos # 1.0 H Seg Neutrophils % Seg Neuts % (Manual) Lymphocytes % (Manual) Monocytes % (Manual) Nucleated RBC % Seg Neutrophils # 8.2 H Seg Neutrophils # Man Lymphocytes # (Manual) Monocytes # (Manual) PT INR D-Dimer Heparin Anti-Xa Level POC ABG pH ABG pH POC ABG pCO2 POC ABG pO2 ABG pO2 ABG HCO3 ABG O2 Saturation ABG Base Excess ABG Hemoglobin Oxyhemoglobin Sodium 136 L Potassium Chloride Carbon Dioxide 21 L BUN Creatinine Glucose POC Glucose Lactic Acid Calcium 10.3 H Ionized Calcium Phosphorus Magnesium Iron TIBC Ferritin Total Bilirubin Direct Bilirubin AST ALT Alkaline Phosphatase Total Creatine Kinase CK-MB (CK-2) Troponin T C-Reactive Protein Serum Total Protein Total Protein Albumin Eznwb-1-Btevvrwug Yuwnu-5-Wsiqflesf PEP Interpretation Triglycerides LDL Cholesterol Direct HDL Cholesterol Free T4 PTH Intact Urine WBC (Auto) Urine Creatinine Salicylates Acetaminophen Crossmatch 05/07/19 05/08/19 05/08/19 05:55 07:27 07:27 WBC 12.5 H RBC 3.50 L Hgb 9.4 L Hct 30.4 L MCV MCH 27 L MCHC 31 L RDW 17.2 H Plt Count Lymph % (Auto) [place] % (Auto) Eos % (Auto) 10.3 H Lymph # [place] # Eos # 1.3 H Seg Neutrophils % Seg Neuts % (Manual) Lymphocytes % (Manual) Monocytes % (Manual) Nucleated RBC % Seg Neutrophils # 8.7 H Seg Neutrophils # Man Lymphocytes # (Manual) Monocytes # (Manual) PT INR D-Dimer Heparin Anti-Xa Level POC ABG pH ABG pH POC ABG pCO2 POC ABG pO2 ABG pO2 ABG HCO3 ABG O2 Saturation ABG Base Excess ABG Hemoglobin Oxyhemoglobin Sodium Potassium 3.5 L Chloride Carbon Dioxide 20 L 20 L BUN Creatinine Glucose POC Glucose Lactic Acid Calcium 10.7 H 10.7 H Ionized Calcium Phosphorus Magnesium Iron TIBC Ferritin Total Bilirubin Direct Bilirubin AST ALT Alkaline Phosphatase Total Creatine Kinase CK-MB (CK-2) Troponin T C-Reactive Protein Serum Total Protein Total Protein Albumin 3.2 L 3.4 L Vivdr-4-Xxodeduzh Khsfn-6-Atppfuqum PEP Interpretation Triglycerides LDL Cholesterol Direct HDL Cholesterol Free T4 PTH Intact Urine WBC (Auto) Urine Creatinine Salicylates Acetaminophen Crossmatch 05/09/19 05/09/19 05:41 05:41 WBC 11.7 H RBC 3.27 L Hgb 9.2 L Hct 27.9 L MCV MCH MCHC RDW 17.8 H Plt Count Lymph % (Auto) [place] % (Auto) Eos % (Auto) 14.3 H Lymph # [place] # Eos # 1.7 H Seg Neutrophils % Seg Neuts % (Manual) Lymphocytes % (Manual) Monocytes % (Manual) Nucleated RBC % Seg Neutrophils # Seg Neutrophils # Man Lymphocytes # (Manual) Monocytes # (Manual) PT INR D-Dimer Heparin Anti-Xa Level POC ABG pH ABG pH POC ABG pCO2 POC ABG pO2 ABG pO2 ABG HCO3 ABG O2 Saturation ABG Base Excess ABG Hemoglobin Oxyhemoglobin Sodium 136 L Potassium Chloride Carbon Dioxide 21 L BUN Creatinine Glucose POC Glucose Lactic Acid Calcium 10.6 H Ionized Calcium Phosphorus Magnesium Iron TIBC Ferritin Total Bilirubin Direct Bilirubin AST ALT Alkaline Phosphatase Total Creatine Kinase CK-MB (CK-2) Troponin T C-Reactive Protein Serum Total Protein Total Protein Albumin 3.3 L Rujwg-9-Aoejhvuca Jccoa-4-Httwxuvak PEP Interpretation Triglycerides LDL Cholesterol Direct HDL Cholesterol Free T4 PTH Intact Urine WBC (Auto) Urine Creatinine Salicylates Acetaminophen Crossmatch Prior PFT's, U/S of legs: report reviewed Additional Studies: DUPLEX DOPPLER LOWER EXTREMITY VEINS, BILATERAL 05/09/19 INDICATION: Bilateral lower extremity pain. Possible DVT. TECHNIQUE: Duplex doppler imaging was performed through the veins of both lower extremities using venous compression and other maneuvers. COMPARISON: Bilateral lower extremity venous Doppler from 03/18/2019. FINDINGS: Right Common Femoral vein: Nonocclusive DVT is present. Right Superficial Femoral vein: Nonocclusive DVT is present. Right Popliteal vein: Negative. Right Calf veins: Negative. Left Common Femoral vein: Nonocclusive DVT is present. Left Superficial Femoral vein: Nonocclusive DVT is present. Left Popliteal vein: Negative. Left Calf veins: Negative. Additional findings: Nonocclusive DVT can also be seen along the external iliac veins. IMPRESSION: Bilateral lower extremity DVT as above. Allied health notes reviewed: nursing
[2019-05-09] MEDS: MELATONIN 5 MG TAB PO PRN (23:41)
[2019-05-10 07:48] LABS: INR 1.17 (0.87-1.13)
[2019-05-10 07:49] LABS: Partial Thromboplastin Time 27.9 Sec. (24.2-36.6)
[2019-05-10 07:57] LABS: BUN/Creatinine Ratio 13; Blood Urea Nitrogen 15 mg/dL (9-20); Calcium 10.2 mg/dL (8.4-10.2); Hemolysis Index 0
[2019-05-10] MEDS: METOPROLOL TARTRATE 25 MG TAB PO SCH (08:00)
[2019-05-10] MEDS: SODIUM CHLORIDE 0.9% 500 ML 500 ML IV SCH ×2 (08:05→18:36)
[2019-05-10] MEDS ORDERED: HEPARIN/NS 5000 UNIT/500ML 1,000 ML IR ONE (08:10)
[2019-05-10] MEDS ORDERED: HEPARIN 10,000 UNITS/10 ML VIAL ONE (08:10)
[2019-05-10] MEDS ORDERED: NITROGLYCERIN SYRINGE 3 ML ONE (08:11)
[2019-05-10] MEDS ORDERED: VERAPAMIL 5 MG/2 ML INJ ONE (08:11)
[2019-05-10] MEDS ORDERED: LIDOCAINE (2%) 20 MG/1 ML VIAL 20 ML MDV INFILTRATI ONE ×2 (08:11→09:39)
[2019-05-10] MEDS: MIDAZOLAM 2 MG/2 ML INJ ONE ×2 (09:15→09:37)
[2019-05-10] MEDS: fentaNYL 100 MCG/2 ML INJ ONE ×2 (09:15→09:37)
--- NOTE | 2019-05-10 09:53 | Progress Note ---
Assessment and Plan S/p [facility] this AM which showed normal coronaries, normal EF. Currently stable cardiac status. Cont present cardiac management. No recurrence of AFib or VT noted for several weeks since resolution of multiple metabolic derangements and thus no plans for initiation of systemic AC or AICD implantation at this time. Nothing further to add from cardiac perspective at this time. Will sign off. Pt reports he plans to return to [place] following discharge. Recommend pt follow up in our office with Dr. Moreno or with lead recreation assistant in [place] within 1-2 weeks of hospital discharge ([phone]). The patient has been seen in conjunction with Dr. Angel who agrees with the assessment and plan of care. - Patient Problems (1) Cardiopulmonary arrest Current Visit: Yes Status: Acute (2) Acute respiratory failure Current Visit: Yes Status: Resolved Qualifiers: Respiratory failure complication: hypoxia Qualified Code(s): J96.01 - Acute respiratory failure with hypoxia (3) Paroxysmal atrial fibrillation with RVR Current Visit: Yes Status: Acute (4) SVT (supraventricular tachycardia) Current Visit: Yes Status: Resolved (5) Torsades de pointes Current Visit: Yes Status: Acute (6) Ventricular tachycardia Current Visit: Yes Status: Resolved (7) Encephalopathy Current Visit: Yes Status: Acute (8) Septic shock Current Visit: Yes Status: Resolved (9) Aspiration pneumonia Current Visit: Yes Status: Acute Qualifiers: Aspiration pneumonia type: unspecified (10) Meningitis Current Visit: Yes Status: Suspected (11) Cellulitis Current Visit: Yes Status: Acute (12) Acute renal failure Current Visit: Yes Status: Acute Qualifiers: Acute renal failure type: with acute tubular necrosis Qualified Code(s): N17.0 - Acute kidney failure with tubular necrosis (13) GI bleed Current Visit: Yes Status: Acute (14) Anemia Current Visit: Yes Status: Acute (15) Thrombocytopenia Current Visit: Yes Status: Resolved (16) DVT (deep venous thrombosis) Current Visit: Yes Status: Acute Subjective Date of service: 05/10/19 Principal diagnosis: Anemia - DVT rt IJ, GI bleeding Interval history: no current complaints. in SR. for [facility] today. Objective Last Vital Signs Temp 98.0 F 05/10/19 04:59 Pulse 72 05/10/19 04:59 Resp 18 05/10/19 04:59 BP 119/81 05/10/19 04:59 Pulse Ox 97 05/10/19 04:59 - Physical Examination General: No Apparent Distress HEENT: Positive: PERRL, EOMI, Normocephaly, Mucus Membranes Moist Neck: Positive: neck supple, trachea midline Cardiac: Positive: Reg Rate and Rhythm, S1/S2 Lungs: Positive: Decreased Breath Sounds Neuro: Positive: Grossly Intact, Other Abdomen: Positive: Soft, Active Bowel Sounds. Negative: Tender /Rectal: Other (deferred) Skin: Positive: Clear, Wound (left arm ). Negative: Rash Musculoskeletal: Normal Range of Motion, other (LUE swollen ) Extremities: Present: normal. Absent: edema - Labs and Meds Coagulation 05/10/19 Range/Units 06:42 PT 14.8 (12.2-14.9) Sec. INR 1.17 H (0.87-1.13) APTT 27.9 (24.2-36.6) Sec. Comprehensive Metabolic Panel 05/01/19 05/10/19 Range/Units 06:15 06:42 Sodium 138 (137-145) mmol/L Potassium 3.8 (3.6-5.0) mmol/L Chloride 102.9 (98-107) mmol/L Carbon Dioxide 21 L (22-30) mmol/L BUN 15 (9-20) mg/dL Creatinine 1.2 (0.8-1.5) mg/dL Glucose 80 (75-100) mg/dL Calcium 10.2 (8.4-10.2) mg/dL Albumin See scanned result - Imaging and Cardiology Echo: report reviewed ( EF 40-45%, impaired relaxation. ) - EKG Sinus rhythms and dysrhythmias: sinus rhythm - Allied health notes Allied health notes reviewed: nursing
--- NOTE | 2019-05-10 09:53 | Progress Note ---
Assessment and Plan Patient will be scheduled for placement of IVC filter. 3 months after discharge, the patient will need to be scheduled for IVC filter removal with repeat ultrasound at that time to evaluate the patient's bilateral lower extremity DVTs. Subjective Date of service: 05/10/19 Principal diagnosis: Anemia - DVT rt IJ, GI bleeding Interval history: Patient with a complex history including GI bleeding, bilateral lower extremity nonocclusive DVT and abnormal stress test. On examination, the patient is resting comfortably head with no significant complaints. Objective - Constitutional Vitals: Vital Signs - 12hr 05/09/19 05/10/19 23:19 04:59 Temperature 97.9 F 98.0 F Pulse Rate 61 72 Respiratory 18 18 Rate Blood Pressure 133/78 119/81 O2 Sat by Pulse 98 97 Oximetry General appearance: Present: no acute distress - EENT Eyes: EOM intact ENT: hearing intact - Neck Neck: supple, normal ROM - Respiratory Respiratory effort: normal - Breasts Breasts: deferred - Gastrointestinal General gastrointestinal: Present: deferred Rectal Exam: deferred - Genitourinary Male genitourinary: deferred - Psychiatric Psychiatric: appropriate mood/affect, cooperative - Labs CBC & Chem 7: 05/09/19 05:41 05/10/19 06:42 Labs: Abnormal lab results 05/10/19 05/10/19 Range/Units 06:42 06:42 INR 1.17 H (0.87-1.13) Carbon Dioxide 21 L (22-30) mmol/L Medications & Allergies - Medications Allergies/Adverse Reactions: Allergies No Known Allergies Allergy (Unverified 03/16/19 17:17) Home Medications: Home Medications Medication Instructions Recorded Confirmed Last Taken Type No Known Home Medications [No 04/28/19 04/28/19 Unknown History Reported Home Medications] Active Medications: Generic Name Dose Route Start Last Admin Trade Name Freq PRN Reason Stop Dose Admin Acetaminophen 650 mg 04/02/19 23:26 05/08/19 21:01 Tylenol PO 650 mg Q4H PRN Administration Pain, Mild (1-3),temp>100.5 Acetaminophen/Hydrocodone Bitart 1 each 05/02/19 11:50 05/09/19 23:05 [place] 5/325 PO 1 each Q6H PRN Administration Pain, Moderate (4-6) Al Hydrox/Mg Hydrox/Simethicone 15 ml 04/30/19 15:15 04/30/19 15:53 Alum-Mag Hydrox-Simeth 085-400-45zi/5ml PO 15 ml Q4H PRN Administration Indigestion Albuterol 2.5 mg 03/29/19 13:08 Proventil IH Q4HRT PRN Shortness Of Breath Lipase/Protease/Amylase 1 each 04/20/19 13:17 Pancrekarly Pur[place] 10,500 Unit FEEDTUBE PRN PRN For Clogged Feeding Tube Bacitracin 1 applic 04/17/19 08:00 Antibiotic Oint TP Q4H PRN upper lip sore/open Dextrose 50 gm 04/17/19 08:00 D50w (25gm) Vial IV Q1H PRN Hypoglycemia Hydralazine HCl 20 mg 04/14/19 03:00 04/14/19 03:11 Apresoline IV 20 mg Q4H PRN Administration hypertemsion Hydrophilic Ointment 1 applic 03/16/19 15:50 04/19/19 18:24 Vaseline Lip Therapy TP 1 applic Q2HR PRN Administration Dry Lips Sodium Chloride 100 mls @ 999 mls/hr 04/20/19 08:41 Nacl 0.9% IV NEYMAR PRN Hypotension Sodium Chloride 500 mls @ 50 mls/hr 05/10/19 08:00 05/10/19 08:05 Nacl 0.9% 500 Ml IV 50 mls/hr DIRECT PAOLO Administration Melatonin 5 mg 04/26/19 21:00 05/09/19 23:41 Melatonin PO 5 mg QHS PRN Administration Sleep Metoprolol Tartrate 25 mg 04/17/19 20:00 05/09/19 21:50 Lopressor PO 25 mg TID PAOLO Administration Multi-Ingred Cream/Lotion/Oil/Oint 1 applic 03/16/19 15:50 03/19/19 20:10 Artificial Tears Ophth Oint OU 1 applic Q4HR PRN Administration Dry Eye(s) Pantoprazole Sodium 40 mg 05/07/19 22:00 05/09/19 21:50 Protonix PO 40 mg BID PAOLO Administration Simple Syrup 15 ml 04/20/19 13:17 Simple Syrup FEEDTUBE PRN PRN Hypoglycemia Simple Syrup 30 ml 04/20/19 13:29 05/01/19 17:57 Simple Syrup FEEDTUBE 30 ml PRN PRN Administration Hypoglycemia Sodium Bicarbonate 325 mg 04/20/19 13:17 04/27/19 11:03 Sodium Bicarbonate FEEDTUBE 325 mg PRN PRN Administration For Clogged Feeding Tube
--- NOTE | 2019-05-10 09:56 | Operative Report ---
Operative Report Operative Report: Exam: Fluoroscopic guided placement of IVC filter Clinical indication: Patient with a history of nonocclusive bilateral iliofemoral DVTs, unable to anticoagulate secondary to GI bleed Date: 05/10/2019 Procedure: Following an excellent patient of the risks, benefits and alternatives; written informed consent was obtained. The patient was brought to the angiographic suite. This procedure was performed following the patient's cardiac catheterization. The patient's groin had previously been prepped and draped in the usual sterile fashion and a 6 Amharic sheath placed in the right common femoral vein. Additional lidocaine was utilized around the sheath. Contrast was injected through the sheath which demonstrates a widely patent IVC without intraluminal thrombus. Appropriate size criteria is met. The level of the lowest renal vein is identified. A 0.035 guidewire was then advanced through the sheath. The sheath was removed and the 11 Amharic IVC filter introducer sheath and trocar were then advanced over the guidewire under fluoroscopy to the infrarenal IVC. The trocar and guidewire were removed. A [place] IVC filter was then advanced through the sheath and deployed under fluoroscopy. Postplacement imaging demonstrates satisfactory positioning with no significant tilt. The sheath was removed and hemostasis achieved using manual compression. A sterile dressing was applied. Conscious sedation was administered under the guidance of radiologic nursing. Continuous cardiopulmonary monitoring was utilized. Impression: Fluoroscopic guided placement of infrarenal IVC filter.
--- NOTE | 2019-05-10 10:02 | Cardiac Catherization Report ---
HEART CATHETERIZATION REFERRING PHYSICIAN: Hospitalist service INDICATION FOR PROCEDURE: The patient presented approximately a month ago with cardiac arrest, had multisystem organ failure, has made a slow recovery. Renal function is improved, anemia is improved, had an EGD yesterday, which was normal. He is cleared for cardiac catheterization. Risks, benefits, alternatives discussed. He did have an abnormal stress test as well. Risks, benefits, alternatives discussed prior to obtaining informed consent. The patient was recently found to have bilateral lower extremity deep venous thrombosis and is scheduled to undergo IVC filter placement. He has debridement of his left arm and bilateral lower extremity DVTs. We decided to use the right arm for blood pressure and use a right femoral arterial access. PROCEDURE IN DETAIL: The patient was brought to the catheterization lab in a postabsorptive state, prepped and draped in sterile fashion, 8 mL of 2% lidocaine used to anesthetize the right groin. A standard 5-Bengali sheath used to cannulate the right common femoral artery via modified Seldinger technique. I obtained right femoral venous access as well via modified Seldinger technique and a 5-Bengali sheath was placed. A JL4 catheter used to engage the left main. No dampening or ventricularization. Cineagniography performed in multiple projections. JR4 catheter used to cross the aortic valve under fluoroscopic guidance. Left ventriculography performed in 30 TEAGUE and AMINATA projections via hand injections, catheter flushed. Manual pullback performed with continuous pressure monitoring. Catheter used to engage the right coronary. No dampening or ventricularization. Cineangiography performed in multiple projections. Next, catheter removed from the body of wire, sheath removed. The patient is scheduled to undergo IVC filter placement with Interventional Radiology at the same setting. There were no complications. The patient tolerated the procedure well. FINDINGS: The patient remained in normal sinus rhythm throughout the procedure. Aortic pressure is 140/80, LV pressure is 140. LVEDP of 10 mmHg. Left ventriculography reveals normal left ventricular systolic performance, estimated ejection fraction of 55-60%. No evidence of aortic stenosis. CORONARY ANATOMY: This is a right dominant system. Right coronary is a moderate sized vessel, courses AV groove, distally bifurcates in the posterior and posterolateral branches. Scattered luminal irregularities, but no significant disease noted. BURAK 3 flow. The left main was without significant disease, bifurcates left anterior descending and left circumflex. Left circumflex, moderate sized vessel, courses AV groove. Scattered luminal irregularities, but no significant disease. LAD is a moderate sized vessel, courses anterior intergroove, wraps around the apex, no significant disease noted. Scattered luminal irregularities with BURAK 3 flow throughout. No complications. I directly supervised the administration of moderate sedation from 9:00 a.m. to 9:35 a.m. No immediate complications were identified. CONCLUSIONS: 1. No angiographic evidence of significant epicardial coronary disease in this right dominant system. 2. Normal left ventricular systolic performance, estimated ejection fraction of 55-60%. 3. No evidence of aortic stenosis. 4. Successful right femoral venous access. Results of the procedure explained to the patient at length. All questions and concerns were addressed. The patient is scheduled to get an IVC filter as well. We will continue to follow along. Standard groin care post-procedure. JOB# [id number] SBM/NTS
[2019-05-10] MEDS: METOPROLOL SUCCINATE XL 50 MG TAB PO SCH (10:57)
[2019-05-10] MEDS: HYDROcodone/ACETAMINOPHEN 5-325 MG TAB PO PRN ×3 (10:57→23:27)
[2019-05-10] MEDS: PANTOPRAZOLE 40 MG TAB PO SCH ×2 (10:58→21:52)
--- NOTE | 2019-05-10 11:05 | Progress Note ---
Assessment and Plan Assessment and plan: Bilateral lower extremity DVTs. Patient will be scheduled for placement of IVC filter. 3 months after d ischarge, the patient will need to be scheduled for IVC filter removal with repeat ultrasound at that time to evaluate the patient's bilateral lower extremity DVTs. - Acute hypoxic respiratory failure. Was intubated, but now extubated. Now on Room air. Continue BiPAP as clinically indicated. - Atrial fibrillation. Resolved. Continue Metoprolol. Cardiology following. No recurrence of AFib or VT noted for several weeks since resolution of multiple metabolic derangements and thus no plans for initiation of systemic AC or AICD implantation at this time. - Abnormal Lexiscan stress with ejection fraction of 45% S/p LHC this AM which showed normal coronaries, normal EF. - Acute blood loss anemia. Patient with GI bleed secondary to peptic ulcer disease. EGD completed per GI. Continue PRBCs as needed. - GI bleed/peptic ulcer disease. Continue PPI. Transfuse PRBCs as needed. - Sepsis/septic shock. Resolved. Continue to monitor off antibiotics - Ischemic hepatitis/shock liver. Resolved. Viral hepatitis panel negative. - Acute kidney injury. Resolved. Patient's last hemodialysis 04/20/19. Continue to monitor BMP. Avoid nephrotoxic agents. - Toxic metabolic encephalopathy. Resolved. - Swelling both upper ext L>R Doppler US : no DVT LUE - Hypokalemia. Replete potassium as needed. - Thrombocytopenia. Etiology likely secondary to sepsis. Resolved. - Rhabdomyolysis. CK normalized. Full code status Disposition. Awaiting for arrangements for SNF in [place] History Interval history: Patient for IVC filter placement today Hospitalist Physical - Constitutional Vitals: Temp Pulse Resp BP Pulse Ox 98.0 F 72 18 119/81 97 05/10/19 04:59 05/10/19 04:59 05/10/19 04:59 05/10/19 04:59 05/10/19 04:59 General appearance: Present: no acute distress - EENT Eyes: Present: PERRL, EOM intact ENT: hearing intact, clear oral mucosa, dentition normal - Neck Neck: Present: supple, normal ROM - Respiratory Respiratory effort: normal Respiratory: bilateral: CTA - Cardiovascular Rhythm: regular Heart Sounds: Present: S1 & S2. Absent: gallop, rub - Extremities Extremities: no ischemia, No edema, Full ROM - Abdominal General gastrointestinal: soft, non-tender, non-distended, normal bowel sounds - Integumentary Integumentary: Present: clear, warm, dry - Neurologic Neurologic: CNII-XII intact, moves all extremities Results - Labs CBC & Chem 7: 05/09/19 05:41 05/10/19 06:42 Labs: Laboratory Last Values WBC 11.7 K/mm3 (4.5-11.0) H 05/09/19 05:41 RBC 3.27 M/mm3 (3.65-5.03) L 05/09/19 05:41 Hgb 9.2 gm/dl (11.8-15.2) L 05/09/19 05:41 Hct 27.9 % (35.5-45.6) L 05/09/19 05:41 MCV 86 fl (84-94) 05/09/19 05:41 MCH 28 pg (28-32) 05/09/19 05:41 MCHC 33 % (32-34) 05/09/19 05:41 RDW 17.8 % (13.2-15.2) H 05/09/19 05:41 Plt Count 305 K/mm3 (140-440) 05/09/19 05:41 Lymph % (Auto) 17.9 % (13.4-35.0) 05/09/19 05:41 [place] % (Auto) 5.6 % (0.0-7.3) 05/09/19 05:41 Eos % (Auto) 14.3 % (0.0-4.3) H 05/09/19 05:41 Baso % (Auto) 0.7 % (0.0-1.8) 05/09/19 05:41 Lymph # 2.1 K/mm3 (1.2-5.4) 05/09/19 05:41 [place] # 0.7 K/mm3 (0.0-0.8) 05/09/19 05:41 Eos # 1.7 K/mm3 (0.0-0.4) H 05/09/19 05:41 Baso # 0.1 K/mm3 (0.0-0.1) 05/09/19 05:41 Add Manual Diff Complete 04/11/19 04:16 Total Counted 100 04/11/19 04:16 Seg Neutrophils % 61.5 % (40.0-70.0) 05/09/19 05:41 Seg Neuts % (Manual) 71.0 % (40.0-70.0) H 04/11/19 04:16 Band Neutrophils % 1.0 % 04/11/19 04:16 Lymphocytes % (Manual) 17.0 % (13.4-35.0) 04/11/19 04:16 Reactive Lymphs % (Man) 0 % 04/11/19 04:16 Monocytes % (Manual) 8.0 % (0.0-7.3) H 04/11/19 04:16 Eosinophils % (Manual) 2.0 % (0.0-4.3) 04/11/19 04:16 Basophils % (Manual) 1.0 % (0.0-1.8) 04/11/19 04:16 Metamyelocytes % 0 % 04/11/19 04:16 Myelocytes % 0 % 04/11/19 04:16 Promyelocytes % 0 % 04/11/19 04:16 Blast Cells % 0 % 04/11/19 04:16 Nucleated RBC % Not Reportable 04/11/19 04:16 Seg Neutrophils # 7.2 K/mm3 (1.8-7.7) 05/09/19 05:41 Seg Neutrophils # Man 8.2 K/mm3 (1.8-7.7) H 04/11/19 04:16 Band Neutrophils # 0.1 K/mm3 04/11/19 04:16 Lymphocytes # (Manual) 2.0 K/mm3 (1.2-5.4) 04/11/19 04:16 Abs React Lymphs (Man) 0.0 K/mm3 04/11/19 04:16 Monocytes # (Manual) 0.9 K/mm3 (0.0-0.8) H 04/11/19 04:16 Eosinophils # (Manual) 0.2 K/mm3 (0.0-0.4) 04/11/19 04:16 Basophils # (Manual) 0.1 K/mm3 (0.0-0.1) 04/11/19 04:16 Metamyelocytes # 0.0 K/mm3 04/11/19 04:16 Myelocytes # 0.0 K/mm3 04/11/19 04:16 Promyelocytes # 0.0 K/mm3 04/11/19 04:16 Blast Cells # 0.0 K/mm3 04/11/19 04:16 WBC Morphology Not Reportable 04/11/19 04:16 Hypersegmented Neuts Not Reportable 04/11/19 04:16 Hyposegmented Neuts Not Reportable 04/11/19 04:16 Hypogranular Neuts Not Reportable 04/11/19 04:16 Smudge Cells Not Reportable 04/11/19 04:16 Toxic Granulation Not Reportable 04/11/19 04:16 Toxic Vacuolation Not Reportable 04/11/19 04:16 Dohle Bodies Not Reportable 04/11/19 04:16 Pelger-Huet Anomaly Not Reportable 04/11/19 04:16 Joyce Rods Not Reportable 04/11/19 04:16 Platelet Estimate Consistent w auto 04/11/19 04:16 Clumped Platelets Not Reportable 04/11/19 04:16 Plt Clumps, EDTA Not Reportable 04/11/19 04:16 Large Platelets Not Reportable 04/11/19 04:16 Giant Platelets Not Reportable 04/11/19 04:16 Platelet Satelliting Not Reportable 04/11/19 04:16 Plt Morphology Comment Not Reportable 04/11/19 04:16 RBC Morphology Not Reportable 04/11/19 04:16 Dimorphic RBCs Not Reportable 04/11/19 04:16 Polychromasia Not Reportable 04/11/19 04:16 Hypochromasia Not Reportable 04/11/19 04:16 Poikilocytosis Not Reportable 04/11/19 04:16 Anisocytosis Rare 04/11/19 04:16 Microcytosis Rare 04/11/19 04:16 Macrocytosis Not Reportable 04/11/19 04:16 Spherocytes Not Reportable 04/11/19 04:16 Pappenheimer Bodies Not Reportable 04/11/19 04:16 Sickle Cells Not Reportable 04/11/19 04:16 Target Cells Not Reportable 04/11/19 04:16 Tear Drop Cells Not Reportable 04/11/19 04:16 Ovalocytes Not Reportable 04/11/19 04:16 Stomatocytes Few 03/26/19 Unknown Helmet Cells Not Reportable 04/11/19 04:16 [place] Bodies Not Reportable 04/11/19 04:16 [place] Rings Not Reportable 04/11/19 04:16 [place] Cells Not Reportable 04/11/19 04:16 Bite Cells Not Reportable 04/11/19 04:16 Crenated Cell Not Reportable 04/11/19 04:16 Elliptocytes Not Reportable 04/11/19 04:16 Acanthocytes (Spur) Not Reportable 04/11/19 04:16 Rouleaux Not Reportable 04/11/19 04:16 Hemoglobin C Crystals Not Reportable 04/11/19 04:16 Schistocytes Not Reportable 04/11/19 04:16 Malaria parasites Not Reportable 04/11/19 04:16 Phil Bodies Not Reportable 04/11/19 04:16 Hem Pathologist Commnt No 04/11/19 04:16 PT 14.8 Sec. (12.2-14.9) 05/10/19 06:42 INR 1.17 (0.87-1.13) H 05/10/19 06:42 APTT 27.9 Sec. (24.2-36.6) 05/10/19 06:42 Fibrinogen 226 mg/dl (211-480) 03/28/19 12:00 D-Dimer 4845.98 ng/mlDDU (0-234) H 03/28/19 12:00 Heparin Anti-Xa Level 0.23 U.I./ml (0.3-0.7) L 03/28/19 05:13 POC ABG pH 7.401 (7.35-7.45) 04/07/19 12:57 ABG pH 7.388 pH Units (7.350-7.450) 04/06/19 05:20 POC ABG pCO2 41.5 (35-45) 04/07/19 12:57 ABG pCO2 38.5 mm Hg 04/06/19 05:20 POC ABG pO2 107 (80-105) H 04/07/19 12:57 ABG pO2 104.0 mm Hg (80.0-90.0) H 04/06/19 05:20 POC ABG HCO3 25.7 (22-26 mml/L) 04/07/19 12:57 ABG HCO3 22.6 mmol/L (20.0-26.0) 04/06/19 05:20 POC ABG Total CO2 27 (23-27mmol/L) 04/07/19 12:57 POC ABG O2 Sat 98 04/07/19 12:57 ABG O2 Saturation 97.8 % (95.0-99.0) 04/06/19 05:20 ABG O2 Content 10.0 (0.0-44) 04/06/19 05:20 POC ABG Base Excess 1 ((-2) - (+3)mmol/L) 04/07/19 12:57 ABG Base Excess -2.1 mmol/L (-2.0-3.0) L 04/06/19 05:20 ABG Hemoglobin 7.3 gm/dl (14.0-18.0) L 04/06/19 05:20 ABG Carboxyhemoglobin 1.7 % (0.0-5.0) 04/06/19 05:20 ABG Methemoglobin 0.6 % (0.0-1.5) 04/06/19 05:20 Oxyhemoglobin 95.5 % (95.0-99.0) 04/06/19 05:20 FiO2 30 % 04/07/19 12:57 Sodium 138 mmol/L (137-145) 05/10/19 06:42 Potassium 3.8 mmol/L (3.6-5.0) 05/10/19 06:42 Chloride 102.9 mmol/L (98-107) 05/10/19 06:42 Carbon Dioxide 21 mmol/L (22-30) L 05/10/19 06:42 Anion Gap 18 mmol/L 05/10/19 06:42 BUN 15 mg/dL (9-20) 05/10/19 06:42 Creatinine 1.2 mg/dL (0.8-1.5) 05/10/19 06:42 Estimated GFR > 60 ml/min 05/10/19 06:42 BUN/Creatinine Ratio 13 % 05/10/19 06:42 Glucose 80 mg/dL (75-100) 05/10/19 06:42 POC Glucose 82 (70-105) 05/10/19 06:39 Lactic Acid 1.90 mmol/L (0.7-2.0) 03/21/19 21:31 Calcium 10.2 mg/dL (8.4-10.2) 05/10/19 06:42 Ionized Calcium 7.2 mg/dL (4.8-5.6) H* 04/29/19 14:14 Phosphorus 2.80 mg/dL (2.5-4.5) 05/03/19 05:37 Magnesium 2.20 mg/dL (1.7-2.3) 05/04/19 06:49 Iron 26 ug/dL (49-181) L 04/02/19 05:03 TIBC 138 mcg/dL (250-450) L 04/02/19 05:03 Ferritin 607.0 ng/mL (13.0-400.0) H 04/02/19 05:03 Total Bilirubin 0.30 mg/dL (0.1-1.2) 05/09/19 05:41 Direct Bilirubin 0.4 mg/dL (0-0.2) H 03/31/19 08:20 Indirect Bilirubin 0.1 mg/dL 03/31/19 08:20 AST 13 units/L (5-40) 05/09/19 05:41 ALT 14 units/L (7-56) 05/09/19 05:41 Alkaline Phosphatase 70 units/L (35-129) 05/09/19 05:41 Total Creatine Kinase 62 units/L (55-170) 04/07/19 05:40 CK-MB (CK-2) 54.3 ng/mL (0.0-4.0) H 03/17/19 07:16 CK-MB (CK-2) Rel Index 0.0 (0-4) 03/17/19 07:16 Troponin T 0.058 ng/mL (0.00-0.029) H 03/17/19 07:16 C-Reactive Protein 7.10 mg/dL (0.00-1.30) H 04/17/19 04:15 Serum Total Protein 5.7 g/dL (6.1-8.1) L 05/01/19 06:52 Total Protein 6.8 g/dL (6.3-8.2) 05/09/19 05:41 Albumin 3.3 g/dL (3.9-5) L 05/09/19 05:41 Albumin/Globulin Ratio 0.9 % 05/09/19 05:41 Ymgdh-9-[id number] 0.5 g/dL (0.2-0.3) H 05/01/19 06:52 Jzkua-2-Ynbwsvmmf 0.9 g/dL (0.5-0.9) 05/01/19 06:52 Beta Globulins 0.4 g/dL (0.2-0.5) 05/01/19 06:52 Gamma Globulins 1.0 g/dL (0.8-1.7) 05/01/19 06:52 Abnorm Protein Band 1 see below 05/01/19 06:52 PEP Interpretation see below H 05/01/19 06:52 Triglycerides 309 mg/dL (2-149) H 03/29/19 06:22 Cholesterol 88 mg/dL (50-199) 03/16/19 22:32 LDL Cholesterol Direct 10 mg/dL (50-130) L 03/16/19 22:32 HDL Cholesterol 7 mg/dL (40-59) L 03/16/19 22:32 Cholesterol/HDL Ratio 12.57 % 03/16/19 22:32 Vitamin B12 903.0 pg/mL (211-911) 04/02/19 05:03 25-OH Vitamin D Total See scanned result 04/29/19 14:14 25-Hydroxy Vitamin D2 <4 ng/mL 04/29/19 14:14 1,25 Dihydroxy Vit D2 <8 pg/mL 04/29/19 14:14 25-Hydroxy Vitamin D3 11 ng/mL 04/29/19 14:14 1,25 Dihydroxy Vit D3 <8 pg/mL 04/29/19 14:14 Folate 8.05 ng/mL (7.3-26.0) 04/02/19 05:03 Procalcitonin 25.42 ng/mL (<0.15) 03/27/19 19:21 TSH 2.200 mlU/mL (0.270-4.200) 03/16/19 17:05 Free T4 0.72 ng/dL (0.76-1.46) L 03/16/19 17:05 PTH Intact 8.83 pg/mL (15-65) L 04/29/19 14:14 Urine Color Yellow (Yellow) 04/15/19 22:11 Urine Turbidity Clear (Clear) 04/15/19 22:11 Urine pH 6.0 (5.0-7.0) 04/15/19 22:11 Ur Specific [place] 1.010 (1.003-1.030) 04/15/19 22:11 Urine Protein 30 mg/dl mg/dL (Negative) 04/15/19 22:11 Urine Glucose (UA) Neg mg/dL (Negative) 04/15/19 22:11 Urine Ketones Neg mg/dL (Negative) 04/15/19 22:11 Urine Blood Mod (Negative) 04/15/19 22:11 Urine Nitrite Neg (Negative) 04/15/19 22:11 Urine Bilirubin Neg (Negative) 04/15/19 22:11 Urine Urobilinogen < 2.0 mg/dL (<2.0) 04/15/19 22:11 Ur Leukocyte Esterase Neg (Negative) 04/15/19 22:11 Urine WBC (Auto) 4.0 /HPF (0.0-6.0) 04/15/19 22:11 Urine RBC (Auto) 2.0 /HPF (0.0-6.0) 04/15/19 22:11 U Epithel Cells (Auto) < 1.0 /HPF (0-13.0) 04/15/19 22:11 Amorphous Crystals 1+ 04/05/19 16:50 Urine Mucus Few /HPF 03/17/19 16:05 Urine Sperm 2+ /HPF (HOST HOSTESS) 03/17/19 16:05 Urine Eosinophils None seen (None Seen) 03/17/19 16:05 Ur Random Creatinine See scanned result 05/01/19 06:15 U Random Total Protein See scanned result 05/01/19 06:15 Urine Creatinine 106.6 mg/dL (0.1-20.0) H 03/17/19 16:05 Protein/Creatinin Ratio See scanned result 05/01/19 06:15 Urine Sodium 95 mmol/L 03/17/19 16:05 U Abnormal Prot Band 1 See scanned result 05/01/19 06:15 U Abnormal Prot Band 2 See scanned result 05/01/19 06:15 U Abnormal Prot Band 3 See scanned result 05/01/19 06:15 Vancomycin Trough 11.5 ug/mL (5.0-20.0) 03/18/19 13:19 Random Vancomycin 10.8 ug/mL (0-40.0) 04/14/19 03:55 Salicylates < 0.3 mg/dL (2.8-20.0) L 03/16/19 17:05 Urine Opiates Screen Presumptive negative 03/17/19 16:05 Urine Methadone Screen Presumptive negative 03/17/19 16:05 Acetaminophen < 5.0 ug/mL (10.0-30.0) L 03/16/19 17:05 Ur Barbiturates Screen Presumptive negative 03/17/19 16:05 Ur Phencyclidine Scrn Presumptive negative 03/17/19 16:05 Ur Amphetamines Screen Presumptive negative 03/17/19 16:05 U Benzodiazepines Scrn Presumptive positive 03/17/19 16:05 Urine Cocaine Screen Presumptive negative 03/17/19 16:05 U Marijuana (THC) Screen Presumptive negative 03/17/19 16:05 Drugs of Abuse Note Disclamer 03/17/19 16:05 Plasma/Serum Alcohol < 0.01 % (0-0.07) 03/16/19 17:05 Immunofix Electrophor see below 05/01/19 06:52 LANDY Screen Negative (Negative) 04/17/19 04:15 Proteinase 3 (PR3) Ab <1.0 AI (<1.0) 04/21/19 04:22 Myeloperoxidase Ab <1.0 AI (<1.0) 04/21/19 04:22 Glomerular Base Mem IgG See scanned result 04/21/19 04:22 Complement C3 150 mg/dL (82-185) 04/17/19 04:15 Complement C4 37 mg/dL (15-53) 04/17/19 04:15 Hepatitis A IgM Ab Non-reactive (NonReactive) 04/18/19 10:02 Hep Bs Antigen Non-reactive (Negative) 04/18/19 10:02 Hep B Core IgM Ab Non-reactive (NonReactive) 04/18/19 10:02 Hepatitis C Antibody Non-reactive (NonReactive) 04/18/19 10:02 HIV 1&2 Antibody Rapid Non react (Non React) 03/17/19 11:52 HIV P24 Antigen Non react (Non React) 03/17/19 11:52 Influenza A (Rapid) Negative (Negative) 03/17/19 17:00 Influenza B (Rapid) Negative (Negative) 03/17/19 17:00 Group A Strep Rapid Negative (Negative) 03/17/19 17:00 Miscellaneous Test Flexitest 1 03/21/19 12:00 Blood Type A POSITIVE 04/02/19 16:34 Antibody Screen Negative 04/02/19 16:34 Crossmatch See Detail 04/02/19 16:34 Active Medications - Current Medications Current Medications: Generic Name Dose Route Start Last Admin Trade Name Kirkq PRN Reason Stop Dose Admin Acetaminophen 650 mg 04/02/19 23:26 05/08/19 21:01 Tylenol PO 650 mg Q4H PRN Administration Pain, Mild (1-3),temp>100.5 Acetaminophen/Hydrocodone Bitart 1 each 05/02/19 11:50 05/09/19 23:05 [place] 5/325 PO 1 each Q6H PRN Administration Pain, Moderate (4-6) Al Hydrox/Mg Hydrox/Simethicone 15 ml 04/30/19 15:15 04/30/19 15:53 Alum-Mag Hydrox-Simeth 158-331-44fs/5ml PO 15 ml Q4H PRN Administration Indigestion Albuterol 2.5 mg 03/29/19 13:08 Proventil IH Q4HRT PRN Shortness Of Breath Lipase/Protease/Amylase 1 each 04/20/19 13:[address] 10,500 Unit FEEDTUBE PRN PRN For Clogged Feeding Tube Bacitracin 1 applic 04/17/19 08:00 Antibiotic Oint TP Q4H PRN upper lip sore/open Dextrose 50 gm 04/17/19 08:00 D50w (25gm) Vial IV Q1H PRN Hypoglycemia Hydralazine HCl 20 mg 04/14/19 03:00 04/14/19 03:11 Apresoline IV 20 mg Q4H PRN Administration hypertemsion Hydrophilic Ointment 1 applic 03/16/19 15:50 04/19/19 18:24 Vaseline Lip Therapy TP 1 applic Q2HR PRN Administration Dry Lips Sodium Chloride 100 mls @ 999 mls/hr 04/20/19 08:41 Nacl 0.9% IV NEYMAR PRN Hypotension Sodium Chloride 500 mls @ 50 mls/hr 05/10/19 08:00 05/10/19 08:05 Nacl 0.9% 500 Ml IV 50 mls/hr DIRECT PAOLO Administration Melatonin 5 mg 04/26/19 21:00 05/09/19 23:41 Melatonin PO 5 mg QHS PRN Administration Sleep Metoprolol Succinate 50 mg 05/10/19 10:00 Metoprolol Xl PO QDAY PAOLO Multi-Ingred Cream/Lotion/Oil/Oint 1 applic 03/16/19 15:50 03/19/19 20:10 Artificial Tears Ophth Oint OU 1 applic Q4HR PRN Administration Dry Eye(s) Pantoprazole Sodium 40 mg 05/07/19 22:00 05/09/19 21:50 Protonix PO 40 mg BID PAOLO Administration Simple Syrup 15 ml 04/20/19 13:17 Simple Syrup FEEDTUBE PRN PRN Hypoglycemia Simple Syrup 30 ml 04/20/19 13:29 05/01/19 17:57 Simple Syrup FEEDTUBE 30 ml PRN PRN Administration Hypoglycemia Sodium Bicarbonate 325 mg 04/20/19 13:17 04/27/19 11:03 Sodium Bicarbonate FEEDTUBE 325 mg PRN PRN Administration For Clogged Feeding Tube Nutrition/Malnutrition Assess - Dietary Evaluation Nutrition/Malnutrition Findings: Nutrition Notes Start: 03/17/19 14:22 Freq: Status: Active Protocol: Document 05/07/19 14:38 JOVANNI (Rec: 05/07/19 14:46 [facility] SRW- [id number]) Nutrition Notes Initial or Follow up Reassessment Current Diagnosis Acute Kidney Injury,Sepsis Other Pertinent Diagnosis GIB, on HD, afib Current Diet Regular + Ensure Clear daily Labs/Tests K 3.5 Ca 10.7 Pertinent Medications Reviewed Height 6 ft Weight 146.8 kg [place] Body Weight (kg) 80.90 BMI 43.9 Subjective/Other Information No meal intakes documented. Pt reports "pretty good" appetite. He is eating at least 50% of meals and drinks ONS. Burn Absent Trauma Absent #1 Nutrition Diagnosis Inadequate oral intake As Evidenced by Signs and Symptoms pt reports good appetite and is consuming at least 50% of meals Diagnosis Progress(for reassessment Improved documentation) Is patient on ventilator? No Is Patient Ambulatory and/or Out of Bed No REE-([facility]-confined to bed) 2871.756 Kcal/Kg value to use for calculation 14 Approximate Energy Requirements Using 5 kcal/Kg Calculation Used for Recommendations Kcal/kg Additional Notes Pro needs >1.2g/kg adjBW: > 137g/day Fluid needs 1ml/kcal Nutrition Intervention Change Diet Order: Continue current diet order Add Supplement/Snack (indicate name/kcal Ensure Clear once daily /protein ) Provides kCal: 240 Provides Protein (gm) 8 Goal #1 Meet at least 75% of kcal/PRO needs via PO and ONS intakes Follow-Up By: 05/14/19 Additional Comments F/U: stable intakes (meals/ONS ), wt
--- NOTE | 2019-05-10 20:30 | Progress Note ---
Assessment and Plan Patient awake and oriented. patient counselled on using O2 as needed for shortness of breath.. O2 saturation is 97% on room air. No acute respiratory distress. Patient afebrile and has leukocytosis. Patients heart rate and blood pressure running good. Patients calcium to day 10.2 in the normal range. Patient has debridement of wound on left hand. Patient has venous doppler studies of legs, reported DVT.Patient undergone IVC filter placement to day.. . - Patient Problems (1) Acute respiratory failure Current Visit: Yes Status: Resolved Qualifiers: Respiratory failure complication: hypoxia Qualified Code(s): J96.01 - Acute respiratory failure with hypoxia Plan to address problem: O2 2L as needed for shortness of breath or desaturation. Albuterol/atrovent aerosol treatments q 6 hours. Continue Prevacid. Patient has IVC filter placement to day. (2) Altered mental status Current Visit: Yes Status: Acute Qualifiers: Altered mental status type: unspecified Qualified Code(s): R41.82 - Altered mental status, unspecified Plan to address problem: Management as per primary care and neurology. (3) Atrial fibrillation with RVR Current Visit: Yes Status: Acute Plan to address problem: Management as per cardiology. (4) Cardiopulmonary arrest Current Visit: Yes Status: Acute Plan to address problem: Patient resuscitated. Presently resting on room air. O2 saturation 95%.. (5) Acute renal failure Current Visit: Yes Status: Acute Qualifiers: Acute renal failure type: with acute tubular necrosis Qualified Code(s): N17.0 - Acute kidney failure with tubular necrosis Plan to address problem: Management as per nephrology. (6) Aspiration pneumonia Current Visit: Yes Status: Acute Qualifiers: Aspiration pneumonia type: unspecified Plan to address problem: Patient treated with Azactam and zyvox. (7) GI bleed Current Visit: Yes Status: Acute Plan to address problem: Management as per gastroenterology. (8) DVT (deep venous thrombosis) Current Visit: Yes Status: Acute Plan to address problem: Venous doppler studies of legs reported DVT. Patient has IVC filter placement to day. Subjective Date of service: 05/10/19 Principal diagnosis: Anemia - DVT rt IJ, GI bleeding Interval history: Patient awake and oriented. patient counselled on using O2 as needed for shortness of breath.. O2 saturation is 97% on room air. No acute respiratory distress. Patient afebrile and has leukocytosis. Patients heart rate and blood pressure running good. Patients calcium to day 10.2 in the normal range. Patient has debridement of wound on left hand. Patient has venous doppler studies of legs, reported DVT.Patient undergone IVC filter placement to day. Objective Vital Signs - 12hr 05/10/19 05/10/19 12:09 16:40 Temperature 97.8 F 98.3 F Pulse Rate 84 88 Respiratory 16 14 Rate Blood Pressure 137/86 132/83 O2 Sat by Pulse 98 97 Oximetry Constitutional: no acute distress, alert, other (middle aged morbidly obese CM, normocephalic with mildly incresed respiratory effort at rest) Eyes: non-icteric ENT: oropharynx moist, other (extubated) Neck: supple, no lymphadenopathy, no JVD, other (large neck circumference) Effort: mildly labored Ascultation: Bilateral: diminished breath sounds, rales, rhonchi (scant) Percussion: Bilateral: not dull Cardiovascular: regular rate and rhythm, other ( S1,S2) Gastrointestinal: normoactive bowel sounds, soft, non-tender, non-distended, other (obese) Integumentary: normal Extremities: no cyanosis, pink and warm, pulses normal, no ischemia or petechiae Neurologic: normal mental status, non-focal exam (grossly), pupils equal and round, CN II-XII normal, other (very weak) Psychiatric: mood appropriate, affect normal CBC and BMP: 05/09/19 05:41 05/10/19 06:42 ABG, PT/INR, D-dimer: ABG POC ABG pH 7.401 (7.35-7.45) 04/07/19 12:57 ABG pH 7.388 pH Units (7.350-7.450) 04/06/19 05:20 POC ABG pCO2 41.5 (35-45) 04/07/19 12:57 ABG pCO2 38.5 mm Hg 04/06/19 05:20 POC ABG pO2 107 (80-105) H 04/07/19 12:57 ABG pO2 104.0 mm Hg (80.0-90.0) H 04/06/19 05:20 POC ABG HCO3 25.7 (22-26 mml/L) 04/07/19 12:57 POC ABG Total CO2 27 (23-27mmol/L) 04/07/19 12:57 POC ABG O2 Sat 98 04/07/19 12:57 ABG O2 Saturation 97.8 % (95.0-99.0) 04/06/19 05:20 PT/INR, D-dimer PT 14.8 Sec. (12.2-14.9) 05/10/19 06:42 INR 1.17 (0.87-1.13) H 05/10/19 06:42 D-Dimer 4845.98 ng/mlDDU (0-234) H 03/28/19 12:00 Abnormal lab findings: Abnormal Labs 03/16/19 03/16/19 03/16/19 15:32 16:03 16:05 WBC 27.0 H RBC 5.55 H Hgb 15.7 H Hct 47.1 H MCV MCH MCHC RDW Plt Count 75 L Lymph % (Auto) Clarke % (Auto) Eos % (Auto) Lymph # Clarke # Eos # Seg Neutrophils % Seg Neuts % (Manual) 85.0 H Lymphocytes % (Manual) 2.0 L Monocytes % (Manual) Nucleated RBC % Seg Neutrophils # Seg Neutrophils # Man 23.0 H Lymphocytes # (Manual) 0.5 L Monocytes # (Manual) PT INR D-Dimer Heparin Anti-Xa Level POC ABG pH ABG pH POC ABG pCO2 POC ABG pO2 ABG pO2 ABG HCO3 ABG O2 Saturation ABG Base Excess ABG Hemoglobin Oxyhemoglobin Sodium 127 L Potassium Chloride 87.8 L Carbon Dioxide 17 L BUN 49 H Creatinine 5.8 H Glucose 150 H POC Glucose 118 H Lactic Acid Calcium 6.6 L Ionized Calcium Phosphorus Magnesium 1.10 L Iron TIBC Ferritin Total Bilirubin Direct Bilirubin AST ALT Alkaline Phosphatase Total Creatine Kinase 26110 H CK-MB (CK-2) Troponin T C-Reactive Protein Serum Total Protein Total Protein Albumin Wklcq-6-Duuyhdsqd Yxndd-8-Wmowpoekt PEP Interpretation Triglycerides LDL Cholesterol Direct HDL Cholesterol Free T4 PTH Intact Urine WBC (Auto) Urine Creatinine Salicylates Acetaminophen Crossmatch 03/16/19 03/16/19 03/16/19 16:59 17:05 17:05 WBC RBC Hgb Hct MCV MCH MCHC RDW Plt Count Lymph % (Auto) Clarke % (Auto) Eos % (Auto) Lymph # Clarke # Eos # Seg Neutrophils % Seg Neuts % (Manual) Lymphocytes % (Manual) Monocytes % (Manual) Nucleated RBC % Seg Neutrophils # Seg Neutrophils # Man Lymphocytes # (Manual) Monocytes # (Manual) PT INR D-Dimer Heparin Anti-Xa Level POC ABG pH 7.297 L ABG pH POC ABG pCO2 33.0 L POC ABG pO2 ABG pO2 ABG HCO3 ABG O2 Saturation ABG Base Excess ABG Hemoglobin Oxyhemoglobin Sodium Potassium Chloride Carbon Dioxide BUN Creatinine Glucose POC Glucose Lactic Acid Calcium Ionized Calcium Phosphorus Magnesium Iron TIBC Ferritin Total Bilirubin Direct Bilirubin AST ALT Alkaline Phosphatase Total Creatine Kinase 45414 H CK-MB (CK-2) 83.1 H Troponin T C-Reactive Protein Serum Total Protein Total Protein Albumin Lzntg-1-Jczkxagzh Aowmu-3-Jrxuvttwo PEP Interpretation Triglycerides LDL Cholesterol Direct HDL Cholesterol Free T4 0.72 L PTH Intact Urine WBC (Auto) Urine Creatinine Salicylates Acetaminophen Crossmatch 03/16/19 03/16/19 03/16/19 17:05 17:05 17:05 WBC RBC Hgb Hct MCV MCH MCHC RDW Plt Count Lymph % (Auto) Clarke % (Auto) Eos % (Auto) Lymph # Clarke # Eos # Seg Neutrophils % Seg Neuts % (Manual) Lymphocytes % (Manual) Monocytes % (Manual) Nucleated RBC % Seg Neutrophils # Seg Neutrophils # Man Lymphocytes # (Manual) Monocytes # (Manual) PT INR D-Dimer Heparin Anti-Xa Level POC ABG pH ABG pH POC ABG pCO2 POC ABG pO2 ABG pO2 ABG HCO3 ABG O2 Saturation ABG Base Excess ABG Hemoglobin Oxyhemoglobin Sodium Potassium Chloride Carbon Dioxide BUN Creatinine Glucose POC Glucose Lactic Acid 5.10 H* Calcium Ionized Calcium Phosphorus Magnesium Iron TIBC Ferritin Total Bilirubin Direct Bilirubin AST ALT Alkaline Phosphatase Total Creatine Kinase CK-MB (CK-2) Troponin T C-Reactive Protein Serum Total Protein Total Protein Albumin Wwnqr-8-Knqyxisdt Nhiyu-9-Vllczzjic PEP Interpretation Triglycerides LDL Cholesterol Direct HDL Cholesterol Free T4 PTH Intact Urine WBC (Auto) Urine Creatinine Salicylates < 0.3 L Acetaminophen < 5.0 L Crossmatch 03/16/19 03/16/19 03/16/19 17:05 17:05 20:35 WBC RBC Hgb Hct MCV MCH MCHC RDW Plt Count Lymph % (Auto) Clarke % (Auto) Eos % (Auto) Lymph # Clarke # Eos # Seg Neutrophils % Seg Neuts % (Manual) Lymphocytes % (Manual) Monocytes % (Manual) Nucleated RBC % Seg Neutrophils # Seg Neutrophils # Man Lymphocytes # (Manual) Monocytes # (Manual) PT 15.9 H INR 1.30 H D-Dimer Heparin Anti-Xa Level POC ABG pH ABG pH POC ABG pCO2 POC ABG pO2 ABG pO2 ABG HCO3 ABG O2 Saturation ABG Base Excess ABG Hemoglobin Oxyhemoglobin Sodium Potassium Chloride Carbon Dioxide BUN Creatinine Glucose POC Glucose Lactic Acid 3.30 H* Calcium Ionized Calcium Phosphorus Magnesium Iron TIBC Ferritin Total Bilirubin 6.20 H Direct Bilirubin 5.9 H AST 800 H ALT 120 H Alkaline Phosphatase Total Creatine Kinase CK-MB (CK-2) Troponin T C-Reactive Protein Serum Total Protein Total Protein 4.4 L Albumin 2.4 L Yvlip-6-Qqewrfppk Lvjam-3-Hqriehley PEP Interpretation Triglycerides LDL Cholesterol Direct HDL Cholesterol Free T4 PTH Intact Urine WBC (Auto) Urine Creatinine Salicylates Acetaminophen Crossmatch 03/16/19 03/16/19 03/16/19 21:45 22:32 Unknown WBC RBC Hgb Hct MCV MCH MCHC RDW Plt Count Lymph % (Auto) Clarke % (Auto) Eos % (Auto) Lymph # Clarke # Eos # Seg Neutrophils % Seg Neuts % (Manual) Lymphocytes % (Manual) Monocytes % (Manual) Nucleated RBC % Seg Neutrophils # Seg Neutrophils # Man Lymphocytes # (Manual) Monocytes # (Manual) PT INR D-Dimer Heparin Anti-Xa Level POC ABG pH ABG pH POC ABG pCO2 POC ABG pO2 ABG pO2 ABG HCO3 ABG O2 Saturation ABG Base Excess ABG Hemoglobin Oxyhemoglobin Sodium Potassium Chloride Carbon Dioxide BUN Creatinine Glucose POC Glucose Lactic Acid 3.30 H* 3.00 H* Calcium Ionized Calcium Phosphorus Magnesium Iron TIBC Ferritin Total Bilirubin Direct Bilirubin AST ALT Alkaline Phosphatase Total Creatine Kinase CK-MB (CK-2) Troponin T 0.047 H D C-Reactive Protein Serum Total Protein Total Protein Albumin Hgjbt-5-Jylhjoedu Axsfp-2-Tbgbvpkde PEP Interpretation Triglycerides 395 H LDL Cholesterol Direct 10 L HDL Cholesterol 7 L Free T4 PTH Intact Urine WBC (Auto) Urine Creatinine Salicylates Acetaminophen Crossmatch 03/17/19 03/17/19 03/17/19 03:45 03:45 03:45 WBC RBC Hgb Hct MCV MCH MCHC RDW Plt Count Lymph % (Auto) Clarke % (Auto) Eos % (Auto) Lymph # Clarke # Eos # Seg Neutrophils % Seg Neuts % (Manual) Lymphocytes % (Manual) Monocytes % (Manual) Nucleated RBC % Seg Neutrophils # Seg Neutrophils # Man Lymphocytes # (Manual) Monocytes # (Manual) PT INR D-Dimer Heparin Anti-Xa Level POC ABG pH ABG pH POC ABG pCO2 POC ABG pO2 ABG pO2 ABG HCO3 ABG O2 Saturation ABG Base Excess ABG Hemoglobin Oxyhemoglobin Sodium 131 L Potassium Chloride 88.9 L Carbon Dioxide BUN 53 H Creatinine 7.1 H Glucose POC Glucose Lactic Acid 4.10 H* Calcium 5.4 L* D Ionized Calcium Phosphorus 7.30 H Magnesium 1.60 L Iron TIBC Ferritin Total Bilirubin 5.90 H Direct Bilirubin AST 801 H ALT 109 H Alkaline Phosphatase Total Creatine Kinase 39231 H 48802 H CK-MB (CK-2) 41.5 H Troponin T 0.054 H C-Reactive Protein Serum Total Protein Total Protein 4.5 L Albumin 2.0 L Zonbt-4-Qhurdnqwl Chasz-9-Huecbnyos PEP Interpretation Triglycerides LDL Cholesterol Direct HDL Cholesterol Free T4 PTH Intact Urine WBC (Auto) Urine Creatinine Salicylates Acetaminophen Crossmatch 03/17/19 03/17/19 03/17/19 05:47 07:16 07:16 WBC RBC Hgb Hct MCV MCH MCHC RDW Plt Count Lymph % (Auto) Clarke % (Auto) Eos % (Auto) Lymph # Clarke # Eos # Seg Neutrophils % Seg Neuts % (Manual) Lymphocytes % (Manual) Monocytes % (Manual) Nucleated RBC % Seg Neutrophils # Seg Neutrophils # Man Lymphocytes # (Manual) Monocytes # (Manual) PT INR D-Dimer Heparin Anti-Xa Level POC ABG pH 7.193 L ABG pH POC ABG pCO2 45.2 H POC ABG pO2 65 L ABG pO2 ABG HCO3 ABG O2 Saturation ABG Base Excess ABG Hemoglobin Oxyhemoglobin Sodium Potassium Chloride Carbon Dioxide BUN Creatinine Glucose POC Glucose Lactic Acid 5.50 H* Calcium Ionized Calcium Phosphorus Magnesium Iron TIBC Ferritin Total Bilirubin Direct Bilirubin AST ALT Alkaline Phosphatase Total Creatine Kinase 01955 H CK-MB (CK-2) 54.3 H Troponin T 0.058 H C-Reactive Protein Serum Total Protein Total Protein Albumin Xsmni-4-Fqumkuagx Iqrvf-6-Tevzewuvn PEP Interpretation Triglycerides LDL Cholesterol Direct HDL Cholesterol Free T4 PTH Intact Urine WBC (Auto) Urine Creatinine Salicylates Acetaminophen Crossmatch 03/17/19 03/17/19 03/17/19 11:52 12:51 13:01 WBC RBC Hgb Hct MCV MCH MCHC RDW Plt Count Lymph % (Auto) Clarke % (Auto) Eos % (Auto) Lymph # Clarke # Eos # Seg Neutrophils % Seg Neuts % (Manual) Lymphocytes % (Manual) Monocytes % (Manual) Nucleated RBC % Seg Neutrophils # Seg Neutrophils # Man Lymphocytes # (Manual) Monocytes # (Manual) PT INR D-Dimer Heparin Anti-Xa Level POC ABG pH 7.154 L ABG pH POC ABG pCO2 34.3 L POC ABG pO2 73 L ABG pO2 ABG HCO3 ABG O2 Saturation ABG Base Excess ABG Hemoglobin Oxyhemoglobin Sodium Potassium Chloride Carbon Dioxide BUN Creatinine Glucose POC Glucose 60 L Lactic Acid 8.20 H* Calcium Ionized Calcium Phosphorus Magnesium Iron TIBC Ferritin Total Bilirubin Direct Bilirubin AST ALT Alkaline Phosphatase Total Creatine Kinase CK-MB (CK-2) Troponin T C-Reactive Protein Serum Total Protein Total Protein Albumin Jcxxd-3-Xlppmyawa Mydmp-1-Wahhminje PEP Interpretation Triglycerides LDL Cholesterol Direct HDL Cholesterol Free T4 PTH Intact Urine WBC (Auto) Urine Creatinine Salicylates Acetaminophen Crossmatch 03/17/19 03/17/19 03/17/19 14:37 14:37 14:37 WBC 29.3 H RBC Hgb Hct MCV MCH MCHC RDW 15.8 H Plt Count 45 L Lymph % (Auto) Clarke % (Auto) Eos % (Auto) Lymph # Clarke # Eos # Seg Neutrophils % Seg Neuts % (Manual) 81.0 H Lymphocytes % (Manual) 1.0 L Monocytes % (Manual) 15.0 H Nucleated RBC % Seg Neutrophils # Seg Neutrophils # Man 23.7 H Lymphocytes # (Manual) 0.3 L Monocytes # (Manual) 4.4 H PT INR D-Dimer Heparin Anti-Xa Level POC ABG pH ABG pH POC ABG pCO2 POC ABG pO2 ABG pO2 ABG HCO3 ABG O2 Saturation ABG Base Excess ABG Hemoglobin Oxyhemoglobin Sodium Potassium Chloride Carbon Dioxide BUN Creatinine Glucose POC Glucose Lactic Acid 4.90 H* Calcium Ionized Calcium Phosphorus Magnesium Iron TIBC Ferritin Total Bilirubin Direct Bilirubin AST ALT Alkaline Phosphatase Total Creatine Kinase CK-MB (CK-2) Troponin T C-Reactive Protein 24.90 H Serum Total Protein Total Protein Albumin Mkjvy-2-Bwgebcawd Qcfye-2-Phdafsiwn PEP Interpretation Triglycerides LDL Cholesterol Direct HDL Cholesterol Free T4 PTH Intact Urine WBC (Auto) Urine Creatinine Salicylates Acetaminophen Crossmatch 03/17/19 03/17/19 03/17/19 16:05 16:05 17:02 WBC RBC Hgb Hct MCV MCH MCHC RDW Plt Count Lymph % (Auto) Clarke % (Auto) Eos % (Auto) Lymph # Clarke # Eos # Seg Neutrophils % Seg Neuts % (Manual) Lymphocytes % (Manual) Monocytes % (Manual) Nucleated RBC % Seg Neutrophils # Seg Neutrophils # Man Lymphocytes # (Manual) Monocytes # (Manual) PT INR D-Dimer Heparin Anti-Xa Level POC ABG pH 7.183 L ABG pH POC ABG pCO2 POC ABG pO2 65 L ABG pO2 ABG HCO3 ABG O2 Saturation ABG Base Excess ABG Hemoglobin Oxyhemoglobin Sodium Potassium Chloride Carbon Dioxide BUN Creatinine Glucose POC Glucose Lactic Acid Calcium Ionized Calcium Phosphorus Magnesium Iron TIBC Ferritin Total Bilirubin Direct Bilirubin AST ALT Alkaline Phosphatase Total Creatine Kinase CK-MB (CK-2) Troponin T C-Reactive Protein Serum Total Protein Total Protein Albumin Fqhnw-6-Wmfyzopiu Knhgt-2-Udhvadqkj PEP Interpretation Triglycerides LDL Cholesterol Direct HDL Cholesterol Free T4 PTH Intact Urine WBC (Auto) 30.0 H Urine Creatinine 106.6 H Salicylates Acetaminophen Crossmatch 03/18/19 03/18/19 03/18/19 05:12 05:16 05:53 WBC RBC Hgb Hct MCV MCH MCHC RDW Plt Count Lymph % (Auto) Clarke % (Auto) Eos % (Auto) Lymph # Clarke # Eos # Seg Neutrophils % Seg Neuts % (Manual) Lymphocytes % (Manual) Monocytes % (Manual) Nucleated RBC % Seg Neutrophils # Seg Neutrophils # Man Lymphocytes # (Manual) Monocytes # (Manual) PT INR D-Dimer Heparin Anti-Xa Level POC ABG pH 7.257 L ABG pH POC ABG pCO2 31.6 L POC ABG pO2 69 L ABG pO2 ABG HCO3 ABG O2 Saturation ABG Base Excess ABG Hemoglobin Oxyhemoglobin Sodium Potassium Chloride Carbon Dioxide BUN Creatinine Glucose POC Glucose 141 H Lactic Acid 5.00 H* Calcium Ionized Calcium Phosphorus Magnesium Iron TIBC Ferritin Total Bilirubin Direct Bilirubin AST ALT Alkaline Phosphatase Total Creatine Kinase CK-MB (CK-2) Troponin T C-Reactive Protein Serum Total Protein Total Protein Albumin Xynyq-7-Ftlpovcos Tuxtt-5-Mjahvtrpi PEP Interpretation Triglycerides LDL Cholesterol Direct HDL Cholesterol Free T4 PTH Intact Urine WBC (Auto) Urine Creatinine Salicylates Acetaminophen Crossmatch 03/18/19 03/18/19 03/18/19 06:57 08:40 08:40 WBC 31.7 H RBC Hgb Hct MCV MCH MCHC RDW 15.5 H Plt Count 35 L Lymph % (Auto) Clarke % (Auto) Eos % (Auto) Lymph # Clarke # Eos # Seg Neutrophils % Seg Neuts % (Manual) Lymphocytes % (Manual) Monocytes % (Manual) Nucleated RBC % Seg Neutrophils # Seg Neutrophils # Man Lymphocytes # (Manual) Monocytes # (Manual) PT INR D-Dimer Heparin Anti-Xa Level POC ABG pH ABG pH POC ABG pCO2 POC ABG pO2 ABG pO2 ABG HCO3 ABG O2 Saturation ABG Base Excess ABG Hemoglobin Oxyhemoglobin Sodium 132 L Potassium 5.5 H D Chloride 88.5 L Carbon Dioxide 18 L BUN 71 H Creatinine 8.1 H Glucose 205 H POC Glucose Lactic Acid 5.00 H* Calcium 4.1 L* D Ionized Calcium Phosphorus Magnesium 2.40 H Iron TIBC Ferritin Total Bilirubin 7.50 H Direct Bilirubin AST 1088 H ALT 159 H Alkaline Phosphatase 190 H Total Creatine Kinase 878826 H CK-MB (CK-2) Troponin T C-Reactive Protein Serum Total Protein Total Protein 4.7 L Albumin 1.8 L Kiiqh-0-Ucqsprabl Byzcy-2-Vlvgbkrln PEP Interpretation Triglycerides LDL Cholesterol Direct HDL Cholesterol Free T4 PTH Intact Urine WBC (Auto) Urine Creatinine Salicylates Acetaminophen Crossmatch 03/18/19 03/18/19 03/18/19 12:33 12:50 13:19 WBC RBC Hgb Hct MCV MCH MCHC RDW Plt Count Lymph % (Auto) Clarke % (Auto) Eos % (Auto) Lymph # Clarke # Eos # Seg Neutrophils % Seg Neuts % (Manual) Lymphocytes % (Manual) Monocytes % (Manual) Nucleated RBC % Seg Neutrophils # Seg Neutrophils # Man Lymphocytes # (Manual) Monocytes # (Manual) PT INR D-Dimer Heparin Anti-Xa Level POC ABG pH 7.282 L ABG pH POC ABG pCO2 POC ABG pO2 67 L ABG pO2 ABG HCO3 ABG O2 Saturation ABG Base Excess ABG Hemoglobin Oxyhemoglobin Sodium Potassium Chloride Carbon Dioxide BUN Creatinine Glucose POC Glucose 129 H Lactic Acid 3.30 H* Calcium Ionized Calcium Phosphorus Magnesium Iron TIBC Ferritin Total Bilirubin Direct Bilirubin AST ALT Alkaline Phosphatase Total Creatine Kinase CK-MB (CK-2) Troponin T C-Reactive Protein Serum Total Protein Total Protein Albumin Mtnzm-1-Eclfrcoya Aqubo-1-Lwouhllgg PEP Interpretation Triglycerides LDL Cholesterol Direct HDL Cholesterol Free T4 PTH Intact Urine WBC (Auto) Urine Creatinine Salicylates Acetaminophen Crossmatch 03/18/19 03/18/19 03/18/19 13:19 16:50 18:11 WBC RBC Hgb Hct MCV MCH MCHC RDW Plt Count Lymph % (Auto) [place] % (Auto) Eos % (Auto) Lymph # Clarke # Eos # Seg Neutrophils % Seg Neuts % (Manual) Lymphocytes % (Manual) Monocytes % (Manual) Nucleated RBC % Seg Neutrophils # Seg Neutrophils # Man Lymphocytes # (Manual) Monocytes # (Manual) PT INR D-Dimer Heparin Anti-Xa Level POC ABG pH ABG pH POC ABG pCO2 POC ABG pO2 59 L ABG pO2 ABG HCO3 ABG O2 Saturation ABG Base Excess ABG Hemoglobin Oxyhemoglobin Sodium Potassium Chloride Carbon Dioxide BUN Creatinine Glucose POC Glucose 151 H Lactic Acid Calcium 4.2 L* Ionized Calcium Phosphorus Magnesium Iron TIBC Ferritin Total Bilirubin Direct Bilirubin AST ALT Alkaline Phosphatase Total Creatine Kinase 437592 H CK-MB (CK-2) Troponin T C-Reactive Protein Serum Total Protein Total Protein Albumin Ibdty-2-Geelbjdyy Zmouw-2-Gbtjhjjut PEP Interpretation Triglycerides LDL Cholesterol Direct HDL Cholesterol Free T4 PTH Intact Urine WBC (Auto) Urine Creatinine Salicylates Acetaminophen Crossmatch 03/18/19 03/18/19 03/19/19 18:20 23:39 01:42 WBC RBC Hgb Hct MCV MCH MCHC RDW Plt Count Lymph % (Auto) [place] % (Auto) Eos % (Auto) Lymph # Clarke # Eos # Seg Neutrophils % Seg Neuts % (Manual) Lymphocytes % (Manual) Monocytes % (Manual) Nucleated RBC % Seg Neutrophils # Seg Neutrophils # Man Lymphocytes # (Manual) Monocytes # (Manual) PT INR D-Dimer Heparin Anti-Xa Level POC ABG pH 7.345 L ABG pH 7.285 L POC ABG pCO2 POC ABG pO2 59 L ABG pO2 44.0 L ABG HCO3 ABG O2 Saturation 70.9 L ABG Base Excess -5.7 L ABG Hemoglobin 11.9 L Oxyhemoglobin 69.6 L Sodium Potassium Chloride Carbon Dioxide BUN Creatinine Glucose POC Glucose 152 H Lactic Acid Calcium Ionized Calcium Phosphorus Magnesium Iron TIBC Ferritin Total Bilirubin Direct Bilirubin AST ALT Alkaline Phosphatase Total Creatine Kinase CK-MB (CK-2) Troponin T C-Reactive Protein Serum Total Protein Total Protein Albumin Ddrby-4-Kismeckrk Kdznp-6-Ajsdqxkne PEP Interpretation Triglycerides LDL Cholesterol Direct HDL Cholesterol Free T4 PTH Intact Urine WBC (Auto) Urine Creatinine Salicylates Acetaminophen Crossmatch 03/19/19 03/19/19 03/19/19 04:00 04:00 05:35 WBC 36.5 H RBC Hgb Hct MCV MCH MCHC RDW 15.8 H Plt Count 35 L Lymph % (Auto) [place] % (Auto) Eos % (Auto) Lymph # Clarke # Eos # Seg Neutrophils % Seg Neuts % (Manual) Lymphocytes % (Manual) Monocytes % (Manual) Nucleated RBC % Seg Neutrophils # Seg Neutrophils # Man Lymphocytes # (Manual) Monocytes # (Manual) PT INR D-Dimer Heparin Anti-Xa Level POC ABG pH ABG pH 7.265 L POC ABG pCO2 POC ABG pO2 ABG pO2 35.4 L* ABG HCO3 ABG O2 Saturation 54.4 L ABG Base Excess -6.7 L ABG Hemoglobin 12.9 L Oxyhemoglobin 53.4 L Sodium 132 L Potassium 5.7 H Chloride 89.8 L Carbon Dioxide 19 L BUN 62 H Creatinine 6.4 H Glucose 151 H POC Glucose Lactic Acid Calcium 5.2 L* D Ionized Calcium Phosphorus Magnesium Iron TIBC Ferritin Total Bilirubin 7.80 H Direct Bilirubin AST 682 H ALT 130 H Alkaline Phosphatase 167 H Total Creatine Kinase CK-MB (CK-2) Troponin T C-Reactive Protein Serum Total Protein Total Protein 4.8 L Albumin 2.3 L Lvybo-4-Wkskrqocy Xkvjm-5-Ekdonijbm PEP Interpretation Triglycerides LDL Cholesterol Direct HDL Cholesterol Free T4 PTH Intact Urine WBC (Auto) Urine Creatinine Salicylates Acetaminophen Crossmatch 03/19/19 03/19/19 03/19/19 05:49 09:16 09:50 WBC RBC Hgb Hct MCV MCH MCHC RDW Plt Count Lymph % (Auto) [place] % (Auto) Eos % (Auto) Lymph # Clarke # Eos # Seg Neutrophils % Seg Neuts % (Manual) Lymphocytes % (Manual) Monocytes % (Manual) Nucleated RBC % Seg Neutrophils # Seg Neutrophils # Man Lymphocytes # (Manual) Monocytes # (Manual) PT INR D-Dimer Heparin Anti-Xa Level POC ABG pH 7.222 L ABG pH POC ABG pCO2 56.6 H POC ABG pO2 ABG pO2 ABG HCO3 ABG O2 Saturation ABG Base Excess ABG Hemoglobin Oxyhemoglobin Sodium Potassium Chloride Carbon Dioxide BUN Creatinine Glucose POC Glucose 154 H Lactic Acid 2.70 H* Calcium Ionized Calcium Phosphorus Magnesium Iron TIBC Ferritin Total Bilirubin Direct Bilirubin AST ALT Alkaline Phosphatase Total Creatine Kinase CK-MB (CK-2) Troponin T C-Reactive Protein Serum Total Protein Total Protein Albumin Ynjrf-2-Skqkelujz Snexy-7-Udoxxktnv PEP Interpretation Triglycerides LDL Cholesterol Direct HDL Cholesterol Free T4 PTH Intact Urine WBC (Auto) Urine Creatinine Salicylates Acetaminophen Crossmatch 03/19/19 03/19/19 03/19/19 09:50 11:28 17:58 WBC RBC Hgb Hct MCV MCH MCHC RDW Plt Count Lymph % (Auto) [place] % (Auto) Eos % (Auto) Lymph # Clarke # Eos # Seg Neutrophils % Seg Neuts % (Manual) Lymphocytes % (Manual) Monocytes % (Manual) Nucleated RBC % Seg Neutrophils # Seg Neutrophils # Man Lymphocytes # (Manual) Monocytes # (Manual) PT INR D-Dimer Heparin Anti-Xa Level POC ABG pH 7.250 L ABG pH POC ABG pCO2 52.6 H POC ABG pO2 ABG pO2 ABG HCO3 ABG O2 Saturation ABG Base Excess ABG Hemoglobin Oxyhemoglobin Sodium Potassium Chloride Carbon Dioxide BUN Creatinine Glucose POC Glucose 160 H Lactic Acid Calcium Ionized Calcium Phosphorus Magnesium Iron TIBC Ferritin Total Bilirubin Direct Bilirubin AST ALT Alkaline Phosphatase Total Creatine Kinase 44666 H CK-MB (CK-2) Troponin T C-Reactive Protein Serum Total Protein Total Protein Albumin Jsehr-5-Fdujatmyk Ufamn-1-Txilkjvnm PEP Interpretation Triglycerides LDL Cholesterol Direct HDL Cholesterol Free T4 PTH Intact Urine WBC (Auto) Urine Creatinine Salicylates Acetaminophen Crossmatch 03/19/19 03/19/19 03/20/19 19:48 21:03 02:16 WBC RBC Hgb Hct MCV MCH MCHC RDW Plt Count Lymph % (Auto) [place] % (Auto) Eos % (Auto) Lymph # Clarke # Eos # Seg Neutrophils % Seg Neuts % (Manual) Lymphocytes % (Manual) Monocytes % (Manual) Nucleated RBC % Seg Neutrophils # Seg Neutrophils # Man Lymphocytes # (Manual) Monocytes # (Manual) PT INR D-Dimer Heparin Anti-Xa Level POC ABG pH 7.279 L ABG pH POC ABG pCO2 50.3 H POC ABG pO2 129 H ABG pO2 ABG HCO3 ABG O2 Saturation ABG Base Excess ABG Hemoglobin Oxyhemoglobin Sodium Potassium Chloride Carbon Dioxide BUN Creatinine Glucose POC Glucose 119 H 119 H Lactic Acid Calcium Ionized Calcium Phosphorus Magnesium Iron TIBC Ferritin Total Bilirubin Direct Bilirubin AST ALT Alkaline Phosphatase Total Creatine Kinase CK-MB (CK-2) Troponin T C-Reactive Protein Serum Total Protein Total Protein Albumin Gsfen-5-Laqmosexa Pydxm-8-Hfdbjizua PEP Interpretation Triglycerides LDL Cholesterol Direct HDL Cholesterol Free T4 PTH Intact Urine WBC (Auto) Urine Creatinine Salicylates Acetaminophen Crossmatch 03/20/19 03/20/19 03/20/19 04:23 05:05 09:30 WBC 36.3 H RBC Hgb Hct MCV MCH MCHC RDW 15.5 H Plt Count 29 L Lymph % (Auto) [place] % (Auto) Eos % (Auto) Lymph # Clarke # Eos # Seg Neutrophils % Seg Neuts % (Manual) Lymphocytes % (Manual) Monocytes % (Manual) Nucleated RBC % Seg Neutrophils # Seg Neutrophils # Man Lymphocytes # (Manual) Monocytes # (Manual) PT INR D-Dimer Heparin Anti-Xa Level POC ABG pH ABG pH POC ABG pCO2 POC ABG pO2 280 H ABG pO2 ABG HCO3 ABG O2 Saturation ABG Base Excess ABG Hemoglobin Oxyhemoglobin Sodium Potassium Chloride Carbon Dioxide BUN Creatinine Glucose POC Glucose 115 H Lactic Acid Calcium Ionized Calcium Phosphorus Magnesium Iron TIBC Ferritin Total Bilirubin Direct Bilirubin AST ALT Alkaline Phosphatase Total Creatine Kinase CK-MB (CK-2) Troponin T C-Reactive Protein Serum Total Protein Total Protein Albumin Tjodg-9-Dltspaqcf Dzwfd-6-Xiqlypqud PEP Interpretation Triglycerides LDL Cholesterol Direct HDL Cholesterol Free T4 PTH Intact Urine WBC (Auto) Urine Creatinine Salicylates Acetaminophen Crossmatch 03/20/19 03/20/19 03/20/19 09:30 09:30 11:34 WBC RBC Hgb Hct MCV MCH MCHC RDW Plt Count Lymph % (Auto) [place] % (Auto) Eos % (Auto) Lymph # [place] # Eos # Seg Neutrophils % Seg Neuts % (Manual) Lymphocytes % (Manual) Monocytes % (Manual) Nucleated RBC % Seg Neutrophils # Seg Neutrophils # Man Lymphocytes # (Manual) Monocytes # (Manual) PT INR D-Dimer Heparin Anti-Xa Level POC ABG pH ABG pH POC ABG pCO2 POC ABG pO2 ABG pO2 ABG HCO3 ABG O2 Saturation ABG Base Excess ABG Hemoglobin Oxyhemoglobin Sodium 131 L Potassium Chloride 92.3 L Carbon Dioxide 20 L BUN 68 H Creatinine 6.1 H Glucose 164 H POC Glucose 141 H Lactic Acid Calcium 5.3 L* Ionized Calcium Phosphorus Magnesium Iron TIBC Ferritin Total Bilirubin 9.50 H Direct Bilirubin AST 381 H ALT 116 H Alkaline Phosphatase 255 H Total Creatine Kinase 55918 H CK-MB (CK-2) Troponin T C-Reactive Protein Serum Total Protein Total Protein 5.1 L Albumin 2.3 L Qbfwy-2-Dugvgjnon Cigtd-4-Hhsdnccld PEP Interpretation Triglycerides LDL Cholesterol Direct HDL Cholesterol Free T4 PTH Intact Urine WBC (Auto) Urine Creatinine Salicylates Acetaminophen Crossmatch 03/20/19 03/20/19 03/20/19 14:41 14:45 18:50 WBC RBC Hgb Hct MCV MCH MCHC RDW Plt Count Lymph % (Auto) [place] % (Auto) Eos % (Auto) Lymph # [place] # Eos # Seg Neutrophils % Seg Neuts % (Manual) Lymphocytes % (Manual) Monocytes % (Manual) Nucleated RBC % Seg Neutrophils # Seg Neutrophils # Man Lymphocytes # (Manual) Monocytes # (Manual) PT INR D-Dimer Heparin Anti-Xa Level POC ABG pH ABG pH POC ABG pCO2 POC ABG pO2 ABG pO2 ABG HCO3 ABG O2 Saturation ABG Base Excess ABG Hemoglobin Oxyhemoglobin Sodium Potassium Chloride Carbon Dioxide BUN Creatinine Glucose POC Glucose 117 H Lactic Acid 2.90 H* Calcium Ionized Calcium Phosphorus Magnesium Iron TIBC Ferritin Total Bilirubin Direct Bilirubin AST ALT Alkaline Phosphatase Total Creatine Kinase CK-MB (CK-2) Troponin T C-Reactive Protein 13.30 H Serum Total Protein Total Protein Albumin Whrud-4-Ekdwudmrg Qubbu-6-Wqmqyqfqx PEP Interpretation Triglycerides LDL Cholesterol Direct HDL Cholesterol Free T4 PTH Intact Urine WBC (Auto) Urine Creatinine Salicylates Acetaminophen Crossmatch 03/20/19 03/21/19 03/21/19 21:55 04:26 04:26 WBC 37.8 H RBC Hgb Hct MCV MCH MCHC RDW 15.4 H Plt Count 36 L Lymph % (Auto) [place] % (Auto) Eos % (Auto) Lymph # [place] # Eos # Seg Neutrophils % Seg Neuts % (Manual) 93.0 H Lymphocytes % (Manual) 3.0 L Monocytes % (Manual) Nucleated RBC % 1.0 H Seg Neutrophils # 34.6 H Seg Neutrophils # Man 35.2 H Lymphocytes # (Manual) 1.1 L Monocytes # (Manual) PT INR D-Dimer Heparin Anti-Xa Level POC ABG pH ABG pH POC ABG pCO2 POC ABG pO2 ABG pO2 ABG HCO3 ABG O2 Saturation ABG Base Excess ABG Hemoglobin Oxyhemoglobin Sodium 131 L Potassium Chloride 90.7 L Carbon Dioxide 21 L BUN 69 H Creatinine 5.7 H Glucose 170 H POC Glucose 128 H Lactic Acid Calcium 6.1 L D Ionized Calcium Phosphorus Magnesium Iron TIBC Ferritin Total Bilirubin 9.50 H Direct Bilirubin AST 308 H ALT 124 H Alkaline Phosphatase 327 H Total Creatine Kinase 15157 H CK-MB (CK-2) Troponin T C-Reactive Protein Serum Total Protein Total Protein 5.7 L Albumin 2.6 L Iogtu-3-Qlknszfym Bumql-2-Niiveusxa PEP Interpretation Triglycerides LDL Cholesterol Direct HDL Cholesterol Free T4 PTH Intact Urine WBC (Auto) Urine Creatinine Salicylates Acetaminophen Crossmatch 03/21/19 03/21/19 03/21/19 05:17 05:39 08:29 WBC RBC Hgb Hct MCV MCH MCHC RDW Plt Count Lymph % (Auto) [place] % (Auto) Eos % (Auto) Lymph # [place] # Eos # Seg Neutrophils % Seg Neuts % (Manual) Lymphocytes % (Manual) Monocytes % (Manual) Nucleated RBC % Seg Neutrophils # Seg Neutrophils # Man Lymphocytes # (Manual) Monocytes # (Manual) PT INR D-Dimer Heparin Anti-Xa Level POC ABG pH ABG pH POC ABG pCO2 POC ABG pO2 209 H ABG pO2 ABG HCO3 ABG O2 Saturation ABG Base Excess ABG Hemoglobin Oxyhemoglobin Sodium Potassium Chloride Carbon Dioxide BUN Creatinine Glucose POC Glucose 145 H Lactic Acid Calcium Ionized Calcium Phosphorus Magnesium Iron TIBC Ferritin Total Bilirubin Direct Bilirubin AST ALT Alkaline Phosphatase Total Creatine Kinase 63359 H CK-MB (CK-2) Troponin T C-Reactive Protein Serum Total Protein Total Protein Albumin Ursbl-6-Kacolrmpm Wkdxf-9-Fsdvtfeux PEP Interpretation Triglycerides LDL Cholesterol Direct HDL Cholesterol Free T4 PTH Intact Urine WBC (Auto) Urine Creatinine Salicylates Acetaminophen Crossmatch 03/21/19 03/21/19 03/21/19 08:29 11:43 12:00 WBC RBC Hgb Hct MCV MCH MCHC RDW Plt Count Lymph % (Auto) [place] % (Auto) Eos % (Auto) Lymph # [place] # Eos # Seg Neutrophils % Seg Neuts % (Manual) Lymphocytes % (Manual) Monocytes % (Manual) Nucleated RBC % Seg Neutrophils # Seg Neutrophils # Man Lymphocytes # (Manual) Monocytes # (Manual) PT INR D-Dimer Heparin Anti-Xa Level POC ABG pH ABG pH POC ABG pCO2 POC ABG pO2 ABG pO2 ABG HCO3 ABG O2 Saturation ABG Base Excess ABG Hemoglobin Oxyhemoglobin Sodium Potassium Chloride Carbon Dioxide BUN Creatinine Glucose POC Glucose 123 H Lactic Acid 2.60 H* 2.20 H* Calcium Ionized Calcium Phosphorus Magnesium Iron TIBC Ferritin Total Bilirubin Direct Bilirubin AST ALT Alkaline Phosphatase Total Creatine Kinase CK-MB (CK-2) Troponin T C-Reactive Protein Serum Total Protein Total Protein Albumin Xjjje-9-Vwywwjidn Tbioq-4-Jyyqrzhuw PEP Interpretation Triglycerides LDL Cholesterol Direct HDL Cholesterol Free T4 PTH Intact Urine WBC (Auto) Urine Creatinine Salicylates Acetaminophen Crossmatch 03/21/19 03/21/19 03/21/19 14:11 18:28 19:32 WBC RBC Hgb Hct MCV MCH MCHC RDW Plt Count Lymph % (Auto) [place] % (Auto) Eos % (Auto) Lymph # [place] # Eos # Seg Neutrophils % Seg Neuts % (Manual) Lymphocytes % (Manual) Monocytes % (Manual) Nucleated RBC % Seg Neutrophils # Seg Neutrophils # Man Lymphocytes # (Manual) Monocytes # (Manual) PT INR D-Dimer Heparin Anti-Xa Level POC ABG pH 7.293 L ABG pH POC ABG pCO2 POC ABG pO2 ABG pO2 ABG HCO3 ABG O2 Saturation ABG Base Excess ABG Hemoglobin Oxyhemoglobin Sodium Potassium Chloride Carbon Dioxide BUN Creatinine Glucose POC Glucose 153 H Lactic Acid 2.10 H* Calcium Ionized Calcium Phosphorus Magnesium Iron TIBC Ferritin Total Bilirubin Direct Bilirubin AST ALT Alkaline Phosphatase Total Creatine Kinase CK-MB (CK-2) Troponin T C-Reactive Protein Serum Total Protein Total Protein Albumin Ecbrz-9-Pmxwteqpz Mohde-3-Istwqcqyj PEP Interpretation Triglycerides LDL Cholesterol Direct HDL Cholesterol Free T4 PTH Intact Urine WBC (Auto) Urine Creatinine Salicylates Acetaminophen Crossmatch 03/21/19 03/22/19 03/22/19 23:38 05:08 05:51 WBC RBC Hgb Hct MCV MCH MCHC RDW Plt Count Lymph % (Auto) [place] % (Auto) Eos % (Auto) Lymph # [place] # Eos # Seg Neutrophils % Seg Neuts % (Manual) Lymphocytes % (Manual) Monocytes % (Manual) Nucleated RBC % Seg Neutrophils # Seg Neutrophils # Man Lymphocytes # (Manual) Monocytes # (Manual) PT INR D-Dimer Heparin Anti-Xa Level POC ABG pH 7.283 L ABG pH POC ABG pCO2 POC ABG pO2 53 L ABG pO2 ABG HCO3 ABG O2 Saturation ABG Base Excess ABG Hemoglobin Oxyhemoglobin Sodium Potassium Chloride Carbon Dioxide BUN Creatinine Glucose POC Glucose 149 H 131 H Lactic Acid Calcium Ionized Calcium Phosphorus Magnesium Iron TIBC Ferritin Total Bilirubin Direct Bilirubin AST ALT Alkaline Phosphatase Total Creatine Kinase CK-MB (CK-2) Troponin T C-Reactive Protein Serum Total Protein Total Protein Albumin Bxplc-6-Bjzdhrqdi Amdcc-7-Bgrtjfkcl PEP Interpretation Triglycerides LDL Cholesterol Direct HDL Cholesterol Free T4 PTH Intact Urine WBC (Auto) Urine Creatinine Salicylates Acetaminophen Crossmatch 03/22/19 03/22/19 03/22/19 08:00 08:00 18:19 WBC 36.7 H RBC Hgb 11.0 L Hct 33.5 L MCV MCH MCHC RDW 15.5 H Plt Count 43 L Lymph % (Auto) [place] % (Auto) Eos % (Auto) Lymph # [place] # Eos # Seg Neutrophils % Seg Neuts % (Manual) 87.0 H Lymphocytes % (Manual) 7.0 L Monocytes % (Manual) Nucleated RBC % Seg Neutrophils # Seg Neutrophils # Man 31.9 H Lymphocytes # (Manual) Monocytes # (Manual) PT INR D-Dimer Heparin Anti-Xa Level POC ABG pH ABG pH POC ABG pCO2 46.4 H POC ABG pO2 108 H ABG pO2 ABG HCO3 ABG O2 Saturation ABG Base Excess ABG Hemoglobin Oxyhemoglobin Sodium 132 L Potassium 5.6 H Chloride 89.6 L Carbon Dioxide 20 L BUN 101 H Creatinine 7.4 H Glucose 124 H POC Glucose Lactic Acid Calcium 5.2 L* Ionized Calcium Phosphorus Magnesium Iron TIBC Ferritin Total Bilirubin 2.80 H Direct Bilirubin AST 119 H ALT 86 H Alkaline Phosphatase 245 H Total Creatine Kinase CK-MB (CK-2) Troponin T C-Reactive Protein Serum Total Protein Total Protein 5.6 L Albumin 2.5 L Uewot-6-Bdgcbpvnd Fcpor-7-Aerzwdytz PEP Interpretation Triglycerides LDL Cholesterol Direct HDL Cholesterol Free T4 PTH Intact Urine WBC (Auto) Urine Creatinine Salicylates Acetaminophen Crossmatch 03/22/19 03/23/19 03/23/19 20:37 04:49 05:28 WBC 35.9 H RBC Hgb 10.8 L Hct 33.2 L MCV MCH MCHC RDW 15.5 H Plt Count 49 L Lymph % (Auto) [place] % (Auto) Eos % (Auto) Lymph # [place] # Eos # Seg Neutrophils % Seg Neuts % (Manual) 81.0 H Lymphocytes % (Manual) 3.5 L Monocytes % (Manual) Nucleated RBC % Seg Neutrophils # Seg Neutrophils # Man 29.1 H Lymphocytes # (Manual) Monocytes # (Manual) 1.4 H PT INR D-Dimer Heparin Anti-Xa Level POC ABG pH 7.296 L ABG pH POC ABG pCO2 46.2 H POC ABG pO2 ABG pO2 ABG HCO3 ABG O2 Saturation ABG Base Excess ABG Hemoglobin Oxyhemoglobin Sodium 129 L Potassium 5.2 H Chloride 91.1 L Carbon Dioxide BUN 91 H Creatinine 6.6 H Glucose 190 H POC Glucose Lactic Acid Calcium 5.3 L* Ionized Calcium Phosphorus Magnesium Iron TIBC Ferritin Total Bilirubin 1.80 H Direct Bilirubin AST 80 H ALT 62 H Alkaline Phosphatase 209 H Total Creatine Kinase 9758 H CK-MB (CK-2) Troponin T C-Reactive Protein Serum Total Protein Total Protein 5.2 L Albumin 2.2 L Lwhto-3-[place] Txbfm-4-Vsvebdzdo PEP Interpretation Triglycerides LDL Cholesterol Direct HDL Cholesterol Free T4 PTH Intact Urine WBC (Auto) Urine Creatinine Salicylates Acetaminophen Crossmatch 03/23/19 03/23/19 03/23/19 05:28 05:31 11:33 WBC 29.7 H RBC 3.59 L Hgb 10.1 L Hct 31.1 L MCV MCH MCHC RDW 15.4 H Plt Count 47 L Lymph % (Auto) [place] % (Auto) Eos % (Auto) Lymph # [place] # Eos # Seg Neutrophils % Seg Neuts % (Manual) 89.0 H Lymphocytes % (Manual) 6.0 L Monocytes % (Manual) Nucleated RBC % 1.0 H Seg Neutrophils # Seg Neutrophils # Man 26.4 H Lymphocytes # (Manual) Monocytes # (Manual) PT INR D-Dimer Heparin Anti-Xa Level POC ABG pH ABG pH POC ABG pCO2 POC ABG pO2 ABG pO2 ABG HCO3 ABG O2 Saturation ABG Base Excess ABG Hemoglobin Oxyhemoglobin Sodium Potassium Chloride Carbon Dioxide BUN Creatinine Glucose POC Glucose 122 H 113 H Lactic Acid Calcium Ionized Calcium Phosphorus Magnesium Iron TIBC Ferritin Total Bilirubin Direct Bilirubin AST ALT Alkaline Phosphatase Total Creatine Kinase CK-MB (CK-2) Troponin T C-Reactive Protein Serum Total Protein Total Protein Albumin Vezue-7-Juqlxdnde Yueiw-6-Dlszntkle PEP Interpretation Triglycerides LDL Cholesterol Direct HDL Cholesterol Free T4 PTH Intact Urine WBC (Auto) Urine Creatinine Salicylates Acetaminophen Crossmatch 03/23/19 03/24/19 03/24/19 17:47 00:00 04:50 WBC 35.0 H RBC Hgb 10.4 L Hct 32.4 L MCV MCH MCHC RDW Plt Count 60 L Lymph % (Auto) [place] % (Auto) Eos % (Auto) Lymph # [place] # Eos # Seg Neutrophils % Seg Neuts % (Manual) 93.0 H Lymphocytes % (Manual) 5.0 L Monocytes % (Manual) Nucleated RBC % 7.0 H Seg Neutrophils # Seg Neutrophils # Man 32.6 H Lymphocytes # (Manual) Monocytes # (Manual) PT INR D-Dimer Heparin Anti-Xa Level POC ABG pH ABG pH POC ABG pCO2 POC ABG pO2 ABG pO2 ABG HCO3 ABG O2 Saturation ABG Base Excess ABG Hemoglobin Oxyhemoglobin Sodium Potassium Chloride Carbon Dioxide BUN Creatinine Glucose POC Glucose 111 H 108 H Lactic Acid Calcium Ionized Calcium Phosphorus Magnesium Iron TIBC Ferritin Total Bilirubin Direct Bilirubin AST ALT Alkaline Phosphatase Total Creatine Kinase CK-MB (CK-2) Troponin T C-Reactive Protein Serum Total Protein Total Protein Albumin Qrhqt-5-Bwaghdxvq Aoznf-7-Esnufysml PEP Interpretation Triglycerides LDL Cholesterol Direct HDL Cholesterol Free T4 PTH Intact Urine WBC (Auto) Urine Creatinine Salicylates Acetaminophen Crossmatch 03/24/19 03/24/19 03/24/19 04:50 05:06 12:55 WBC RBC Hgb Hct MCV MCH MCHC RDW Plt Count Lymph % (Auto) [place] % (Auto) Eos % (Auto) Lymph # [place] # Eos # Seg Neutrophils % Seg Neuts % (Manual) Lymphocytes % (Manual) Monocytes % (Manual) Nucleated RBC % Seg Neutrophils # Seg Neutrophils # Man Lymphocytes # (Manual) Monocytes # (Manual) PT INR D-Dimer Heparin Anti-Xa Level POC ABG pH ABG pH POC ABG pCO2 POC ABG pO2 ABG pO2 ABG HCO3 ABG O2 Saturation ABG Base Excess ABG Hemoglobin Oxyhemoglobin Sodium 134 L Potassium 5.1 H Chloride 95.3 L Carbon Dioxide 21 L BUN 85 H Creatinine 6.4 H Glucose 109 H POC Glucose 112 H 110 H Lactic Acid Calcium 5.8 L* Ionized Calcium Phosphorus Magnesium Iron TIBC Ferritin Total Bilirubin Direct Bilirubin AST ALT Alkaline Phosphatase Total Creatine Kinase 5747 H CK-MB (CK-2) Troponin T C-Reactive Protein Serum Total Protein Total Protein Albumin Ffejl-1-Vxyqxohqw Vcycx-1-Sqrbfmmdw PEP Interpretation Triglycerides LDL Cholesterol Direct HDL Cholesterol Free T4 PTH Intact Urine WBC (Auto) Urine Creatinine Salicylates Acetaminophen Crossmatch 03/24/19 03/25/19 03/25/19 23:29 05:00 05:00 WBC RBC Hgb Hct MCV MCH MCHC RDW Plt Count Lymph % (Auto) [place] % (Auto) Eos % (Auto) Lymph # [place] # Eos # Seg Neutrophils % Seg Neuts % (Manual) Lymphocytes % (Manual) Monocytes % (Manual) Nucleated RBC % Seg Neutrophils # Seg Neutrophils # Man Lymphocytes # (Manual) Monocytes # (Manual) PT INR D-Dimer Heparin Anti-Xa Level POC ABG pH ABG pH POC ABG pCO2 POC ABG pO2 ABG pO2 ABG HCO3 ABG O2 Saturation ABG Base Excess ABG Hemoglobin Oxyhemoglobin Sodium 133 L Potassium Chloride 94.0 L Carbon Dioxide 21 L BUN 81 H Creatinine 6.4 H Glucose POC Glucose 109 H Lactic Acid Calcium 5.5 L* Ionized Calcium Phosphorus Magnesium Iron TIBC Ferritin Total Bilirubin Direct Bilirubin AST 80 H ALT Alkaline Phosphatase 202 H Total Creatine Kinase 3589 H CK-MB (CK-2) Troponin T C-Reactive Protein Serum Total Protein Total Protein 5.3 L Albumin 2.4 L Riahr-2-Wjlpwpvvb Trbgd-1-Qkbdpfaiv PEP Interpretation Triglycerides LDL Cholesterol Direct HDL Cholesterol Free T4 PTH Intact 329.9 H Urine WBC (Auto) Urine Creatinine Salicylates Acetaminophen Crossmatch 03/25/19 03/25/19 03/26/19 05:00 06:30 04:30 WBC 23.3 H RBC 3.61 L Hgb 10.2 L Hct 31.2 L MCV MCH MCHC RDW Plt Count 57 L Lymph % (Auto) [place] % (Auto) Eos % (Auto) Lymph # [place] # Eos # Seg Neutrophils % Seg Neuts % (Manual) 92.0 H Lymphocytes % (Manual) 6.0 L Monocytes % (Manual) Nucleated RBC % Seg Neutrophils # Seg Neutrophils # Man 21.4 H Lymphocytes # (Manual) Monocytes # (Manual) PT INR D-Dimer Heparin Anti-Xa Level POC ABG pH ABG pH 7.326 L POC ABG pCO2 POC ABG pO2 ABG pO2 109.5 H 137.4 H ABG HCO3 18.8 L 18.6 L ABG O2 Saturation ABG Base Excess -4.4 L -6.8 L ABG Hemoglobin 10.1 L 9.9 L Oxyhemoglobin Sodium Potassium Chloride Carbon Dioxide BUN Creatinine Glucose POC Glucose Lactic Acid Calcium Ionized Calcium Phosphorus Magnesium Iron TIBC Ferritin Total Bilirubin Direct Bilirubin AST ALT Alkaline Phosphatase Total Creatine Kinase CK-MB (CK-2) Troponin T C-Reactive Protein Serum Total Protein Total Protein Albumin Nhbdy-2-Nrzpfbfbv Bkhyc-7-Guwpqkccm PEP Interpretation Triglycerides LDL Cholesterol Direct HDL Cholesterol Free T4 PTH Intact Urine WBC (Auto) Urine Creatinine Salicylates Acetaminophen Crossmatch 03/26/19 03/26/19 03/26/19 23:22 Unknown Unknown WBC 19.5 H RBC 3.44 L Hgb 9.8 L Hct 29.9 L MCV MCH MCHC RDW Plt Count 85 L Lymph % (Auto) [place] % (Auto) Eos % (Auto) Lymph # [place] # Eos # Seg Neutrophils % Seg Neuts % (Manual) 95.0 H Lymphocytes % (Manual) 3.0 L Monocytes % (Manual) Nucleated RBC % Seg Neutrophils # Seg Neutrophils # Man 18.5 H Lymphocytes # (Manual) 0.6 L Monocytes # (Manual) PT INR D-Dimer Heparin Anti-Xa Level POC ABG pH ABG pH POC ABG pCO2 POC ABG pO2 ABG pO2 ABG HCO3 ABG O2 Saturation ABG Base Excess ABG Hemoglobin Oxyhemoglobin Sodium 135 L Potassium 5.2 H D Chloride 92.2 L Carbon Dioxide 18 L BUN 109 H Creatinine 8.5 H Glucose 117 H POC Glucose 69 L Lactic Acid Calcium 4.5 L* D Ionized Calcium Phosphorus Magnesium Iron TIBC Ferritin Total Bilirubin Direct Bilirubin AST ALT Alkaline Phosphatase Total Creatine Kinase 4527 H CK-MB (CK-2) Troponin T C-Reactive Protein Serum Total Protein Total Protein Albumin Zbhel-3-Ekiaeuehr Devcr-3-Psykmeajz PEP Interpretation Triglycerides LDL Cholesterol Direct HDL Cholesterol Free T4 PTH Intact Urine WBC (Auto) Urine Creatinine Salicylates Acetaminophen Crossmatch 03/27/19 03/27/19 03/27/19 04:30 04:30 09:00 WBC 19.2 H RBC 3.42 L Hgb 9.9 L Hct 30.0 L MCV MCH MCHC RDW Plt Count 84 L Lymph % (Auto) [place] % (Auto) Eos % (Auto) Lymph # [place] # Eos # Seg Neutrophils % Seg Neuts % (Manual) Lymphocytes % (Manual) Monocytes % (Manual) Nucleated RBC % Seg Neutrophils # Seg Neutrophils # Man Lymphocytes # (Manual) Monocytes # (Manual) PT INR D-Dimer Heparin Anti-Xa Level POC ABG pH ABG pH POC ABG pCO2 POC ABG pO2 ABG pO2 ABG HCO3 ABG O2 Saturation ABG Base Excess ABG Hemoglobin Oxyhemoglobin Sodium 135 L Potassium Chloride 93.5 L Carbon Dioxide BUN 84 H Creatinine 7.1 H Glucose POC Glucose Lactic Acid Calcium 5.0 L* Ionized Calcium Phosphorus Magnesium Iron TIBC Ferritin Total Bilirubin Direct Bilirubin AST 78 H ALT Alkaline Phosphatase 135 H Total Creatine Kinase 4677 H CK-MB (CK-2) Troponin T C-Reactive Protein Serum Total Protein Total Protein 4.8 L Albumin 2.3 L Mqvst-0-Bzvmcuubi Zvtge-8-Xvwjoloci PEP Interpretation Triglycerides 409 H LDL Cholesterol Direct HDL Cholesterol Free T4 PTH Intact Urine WBC (Auto) Urine Creatinine Salicylates Acetaminophen Crossmatch 03/27/19 03/27/19 03/27/19 12:37 14:15 14:15 WBC RBC Hgb 9.7 L Hct 29.5 L MCV MCH MCHC RDW Plt Count 87 L Lymph % (Auto) [place] % (Auto) Eos % (Auto) Lymph # [place] # Eos # Seg Neutrophils % Seg Neuts % (Manual) Lymphocytes % (Manual) Monocytes % (Manual) Nucleated RBC % Seg Neutrophils # Seg Neutrophils # Man Lymphocytes # (Manual) Monocytes # (Manual) PT 15.9 H INR 1.30 H D-Dimer Heparin Anti-Xa Level POC ABG pH ABG pH POC ABG pCO2 POC ABG pO2 ABG pO2 ABG HCO3 ABG O2 Saturation ABG Base Excess ABG Hemoglobin Oxyhemoglobin Sodium Potassium Chloride Carbon Dioxide BUN Creatinine Glucose POC Glucose 129 H Lactic Acid Calcium Ionized Calcium Phosphorus Magnesium Iron TIBC Ferritin Total Bilirubin Direct Bilirubin AST ALT Alkaline Phosphatase Total Creatine Kinase CK-MB (CK-2) Troponin T C-Reactive Protein Serum Total Protein Total Protein Albumin Mxcju-8-Pslhfrxvt Jsjkf-5-Loggasmqe PEP Interpretation Triglycerides LDL Cholesterol Direct HDL Cholesterol Free T4 PTH Intact Urine WBC (Auto) Urine Creatinine Salicylates Acetaminophen Crossmatch 03/27/19 03/27/19 03/27/19 18:00 19:22 19:23 WBC RBC Hgb Hct MCV MCH MCHC RDW Plt Count Lymph % (Auto) [place] % (Auto) Eos % (Auto) Lymph # [place] # Eos # Seg Neutrophils % Seg Neuts % (Manual) Lymphocytes % (Manual) Monocytes % (Manual) Nucleated RBC % Seg Neutrophils # Seg Neutrophils # Man Lymphocytes # (Manual) Monocytes # (Manual) PT INR D-Dimer Heparin Anti-Xa Level < 0.10 L POC ABG pH ABG pH POC ABG pCO2 POC ABG pO2 ABG pO2 ABG HCO3 ABG O2 Saturation ABG Base Excess ABG Hemoglobin Oxyhemoglobin Sodium Potassium Chloride Carbon Dioxide BUN Creatinine Glucose POC Glucose 121 H Lactic Acid Calcium Ionized Calcium Phosphorus Magnesium Iron TIBC Ferritin Total Bilirubin Direct Bilirubin AST ALT Alkaline Phosphatase Total Creatine Kinase 4517 H CK-MB (CK-2) Troponin T C-Reactive Protein Serum Total Protein Total Protein Albumin Qfibq-0-Bldemcaqf Lffhr-4-Tgvxuhryc PEP Interpretation Triglycerides LDL Cholesterol Direct HDL Cholesterol Free T4 PTH Intact Urine WBC (Auto) Urine Creatinine Salicylates Acetaminophen Crossmatch 03/27/19 03/27/19 03/28/19 22:10 23:52 03:49 WBC RBC Hgb Hct MCV MCH MCHC RDW Plt Count Lymph % (Auto) [place] % (Auto) Eos % (Auto) Lymph # [place] # Eos # Seg Neutrophils % Seg Neuts % (Manual) Lymphocytes % (Manual) Monocytes % (Manual) Nucleated RBC % Seg Neutrophils # Seg Neutrophils # Man Lymphocytes # (Manual) Monocytes # (Manual) PT INR D-Dimer Heparin Anti-Xa Level POC ABG pH 7.338 L ABG pH POC ABG pCO2 33.1 L POC ABG pO2 ABG pO2 ABG HCO3 ABG O2 Saturation ABG Base Excess ABG Hemoglobin Oxyhemoglobin Sodium Potassium Chloride Carbon Dioxide BUN Creatinine Glucose POC Glucose 113 H 117 H Lactic Acid Calcium Ionized Calcium Phosphorus Magnesium Iron TIBC Ferritin Total Bilirubin Direct Bilirubin AST ALT Alkaline Phosphatase Total Creatine Kinase CK-MB (CK-2) Troponin T C-Reactive Protein Serum Total Protein Total Protein Albumin Sxvue-1-Nmsnblaua Opyys-7-Ubmfdmvnh PEP Interpretation Triglycerides LDL Cholesterol Direct HDL Cholesterol Free T4 PTH Intact Urine WBC (Auto) Urine Creatinine Salicylates Acetaminophen Crossmatch 03/28/19 03/28/19 03/28/19 05:13 05:13 06:18 WBC RBC Hgb Hct MCV MCH MCHC RDW Plt Count Lymph % (Auto) [place] % (Auto) Eos % (Auto) Lymph # [place] # Eos # Seg Neutrophils % Seg Neuts % (Manual) Lymphocytes % (Manual) Monocytes % (Manual) Nucleated RBC % Seg Neutrophils # Seg Neutrophils # Man Lymphocytes # (Manual) Monocytes # (Manual) PT INR D-Dimer Heparin Anti-Xa Level 0.23 L POC ABG pH ABG pH POC ABG pCO2 POC ABG pO2 ABG pO2 ABG HCO3 ABG O2 Saturation ABG Base Excess ABG Hemoglobin Oxyhemoglobin Sodium 135 L Potassium 5.5 H D Chloride 95.1 L Carbon Dioxide 16 L D BUN 129 H Creatinine 9.3 H Glucose 158 H POC Glucose 202 H Lactic Acid Calcium 4.0 L* D Ionized Calcium Phosphorus 12.40 H Magnesium Iron TIBC Ferritin Total Bilirubin Direct Bilirubin AST ALT Alkaline Phosphatase Total Creatine Kinase 4266 H CK-MB (CK-2) Troponin T C-Reactive Protein Serum Total Protein Total Protein Albumin Skdrg-2-Irlbqnkbp Rnyeo-7-Zjswuntlp PEP Interpretation Triglycerides LDL Cholesterol Direct HDL Cholesterol Free T4 PTH Intact Urine WBC (Auto) Urine Creatinine Salicylates Acetaminophen Crossmatch 03/28/19 03/28/19 03/28/19 08:25 10:00 12:00 WBC RBC Hgb 4.9 L* D Hct 15.4 L* D MCV MCH MCHC RDW Plt Count Lymph % (Auto) [place] % (Auto) Eos % (Auto) Lymph # [place] # Eos # Seg Neutrophils % Seg Neuts % (Manual) Lymphocytes % (Manual) Monocytes % (Manual) Nucleated RBC % Seg Neutrophils # Seg Neutrophils # Man Lymphocytes # (Manual) Monocytes # (Manual) PT 17.9 H INR 1.52 H D-Dimer 4845.98 H Heparin Anti-Xa Level POC ABG pH ABG pH POC ABG pCO2 POC ABG pO2 ABG pO2 ABG HCO3 ABG O2 Saturation ABG Base Excess ABG Hemoglobin Oxyhemoglobin Sodium Potassium Chloride Carbon Dioxide BUN Creatinine Glucose POC Glucose Lactic Acid Calcium Ionized Calcium Phosphorus Magnesium Iron TIBC Ferritin Total Bilirubin Direct Bilirubin AST ALT Alkaline Phosphatase Total Creatine Kinase CK-MB (CK-2) Troponin T C-Reactive Protein Serum Total Protein Total Protein Albumin Rygdf-3-Wlurqadng Jxfeu-3-Nfzpevxmm PEP Interpretation Triglycerides LDL Cholesterol Direct HDL Cholesterol Free T4 PTH Intact Urine WBC (Auto) Urine Creatinine Salicylates Acetaminophen Crossmatch See Detail 03/28/19 03/28/19 03/28/19 12:28 14:10 17:43 WBC RBC Hgb 5.9 L* Hct 18.3 L* MCV MCH MCHC RDW Plt Count Lymph % (Auto) Clarke % (Auto) Eos % (Auto) Lymph # Clarke # Eos # Seg Neutrophils % Seg Neuts % (Manual) Lymphocytes % (Manual) Monocytes % (Manual) Nucleated RBC % Seg Neutrophils # Seg Neutrophils # Man Lymphocytes # (Manual) Monocytes # (Manual) PT INR D-Dimer Heparin Anti-Xa Level POC ABG pH ABG pH POC ABG pCO2 POC ABG pO2 ABG pO2 ABG HCO3 ABG O2 Saturation ABG Base Excess ABG Hemoglobin Oxyhemoglobin Sodium Potassium Chloride Carbon Dioxide BUN Creatinine Glucose POC Glucose 153 H 159 H Lactic Acid Calcium Ionized Calcium Phosphorus Magnesium Iron TIBC Ferritin Total Bilirubin Direct Bilirubin AST ALT Alkaline Phosphatase Total Creatine Kinase CK-MB (CK-2) Troponin T C-Reactive Protein Serum Total Protein Total Protein Albumin Qiemh-9-Vttmugoux Jjobi-0-Heqpezmko PEP Interpretation Triglycerides LDL Cholesterol Direct HDL Cholesterol Free T4 PTH Intact Urine WBC (Auto) Urine Creatinine Salicylates Acetaminophen Crossmatch 03/28/19 03/28/19 03/28/19 18:10 Unknown 23:59 WBC 24.8 H RBC 3.42 L Hgb 10.2 L D Hct 31.1 L D MCV MCH MCHC RDW 15.4 H Plt Count 54 L Lymph % (Auto) [place] % (Auto) Eos % (Auto) Lymph # Clarke # Eos # Seg Neutrophils % Seg Neuts % (Manual) 91.0 H Lymphocytes % (Manual) 8.0 L Monocytes % (Manual) Nucleated RBC % Seg Neutrophils # Seg Neutrophils # Man 22.6 H Lymphocytes # (Manual) Monocytes # (Manual) PT INR D-Dimer Heparin Anti-Xa Level POC ABG pH ABG pH POC ABG pCO2 POC ABG pO2 ABG pO2 ABG HCO3 ABG O2 Saturation ABG Base Excess ABG Hemoglobin Oxyhemoglobin Sodium Potassium 5.7 H Chloride Carbon Dioxide BUN Creatinine Glucose POC Glucose 107 H Lactic Acid Calcium Ionized Calcium Phosphorus Magnesium Iron TIBC Ferritin Total Bilirubin Direct Bilirubin AST ALT Alkaline Phosphatase Total Creatine Kinase CK-MB (CK-2) Troponin T C-Reactive Protein Serum Total Protein Total Protein Albumin Jnxcd-0-Awhjxdomn Svrvl-5-Dalupvgrr PEP Interpretation Triglycerides LDL Cholesterol Direct HDL Cholesterol Free T4 PTH Intact Urine WBC (Auto) Urine Creatinine Salicylates Acetaminophen Crossmatch 03/29/19 03/29/19 03/29/19 04:29 05:46 06:22 WBC RBC Hgb 8.6 L Hct 25.7 L MCV MCH MCHC RDW Plt Count 93 L Lymph % (Auto) [place] % (Auto) Eos % (Auto) Lymph # Clarke # Eos # Seg Neutrophils % Seg Neuts % (Manual) Lymphocytes % (Manual) Monocytes % (Manual) Nucleated RBC % Seg Neutrophils # Seg Neutrophils # Man Lymphocytes # (Manual) Monocytes # (Manual) PT INR D-Dimer Heparin Anti-Xa Level POC ABG pH ABG pH POC ABG pCO2 32.2 L POC ABG pO2 ABG pO2 ABG HCO3 ABG O2 Saturation ABG Base Excess ABG Hemoglobin Oxyhemoglobin Sodium Potassium Chloride Carbon Dioxide BUN Creatinine Glucose POC Glucose 113 H Lactic Acid Calcium Ionized Calcium Phosphorus Magnesium Iron TIBC Ferritin Total Bilirubin Direct Bilirubin AST ALT Alkaline Phosphatase Total Creatine Kinase CK-MB (CK-2) Troponin T C-Reactive Protein Serum Total Protein Total Protein Albumin Npedl-4-Eornogvuc Ehmww-8-Ctzclcgne PEP Interpretation Triglycerides LDL Cholesterol Direct HDL Cholesterol Free T4 PTH Intact Urine WBC (Auto) Urine Creatinine Salicylates Acetaminophen Crossmatch 03/29/19 03/29/19 03/29/19 06:22 06:22 06:22 WBC 23.2 H RBC 2.91 L Hgb 8.6 L Hct 25.8 L MCV MCH MCHC RDW Plt Count 91 L Lymph % (Auto) [place] % (Auto) Eos % (Auto) Lymph # Clarke # Eos # Seg Neutrophils % Seg Neuts % (Manual) Lymphocytes % (Manual) Monocytes % (Manual) Nucleated RBC % Seg Neutrophils # Seg Neutrophils # Man Lymphocytes # (Manual) Monocytes # (Manual) PT INR D-Dimer Heparin Anti-Xa Level POC ABG pH ABG pH POC ABG pCO2 POC ABG pO2 ABG pO2 ABG HCO3 ABG O2 Saturation ABG Base Excess ABG Hemoglobin Oxyhemoglobin Sodium 133 L Potassium Chloride 93.8 L Carbon Dioxide 18 L BUN 109 H Creatinine 7.4 H Glucose 124 H POC Glucose Lactic Acid Calcium 4.6 L* Ionized Calcium Phosphorus Magnesium Iron TIBC Ferritin Total Bilirubin Direct Bilirubin AST ALT Alkaline Phosphatase Total Creatine Kinase 3401 H CK-MB (CK-2) Troponin T C-Reactive Protein Serum Total Protein Total Protein Albumin Jklxn-6-Kzxdnscsn Mjfaf-1-Azbrieihi PEP Interpretation Triglycerides 309 H LDL Cholesterol Direct HDL Cholesterol Free T4 PTH Intact Urine WBC (Auto) Urine Creatinine Salicylates Acetaminophen Crossmatch 03/29/19 03/29/19 03/29/19 11:48 11:48 18:24 WBC RBC Hgb 7.8 L Hct 23.2 L MCV MCH MCHC RDW Plt Count Lymph % (Auto) [place] % (Auto) Eos % (Auto) Lymph # Clarke # Eos # Seg Neutrophils % Seg Neuts % (Manual) Lymphocytes % (Manual) Monocytes % (Manual) Nucleated RBC % Seg Neutrophils # Seg Neutrophils # Man Lymphocytes # (Manual) Monocytes # (Manual) PT 15.3 H INR 1.24 H D-Dimer Heparin Anti-Xa Level POC ABG pH ABG pH POC ABG pCO2 POC ABG pO2 ABG pO2 ABG HCO3 ABG O2 Saturation ABG Base Excess ABG Hemoglobin Oxyhemoglobin Sodium Potassium Chloride Carbon Dioxide BUN Creatinine Glucose POC Glucose 122 H Lactic Acid Calcium Ionized Calcium Phosphorus Magnesium Iron TIBC Ferritin Total Bilirubin Direct Bilirubin AST ALT Alkaline Phosphatase Total Creatine Kinase CK-MB (CK-2) Troponin T C-Reactive Protein Serum Total Protein Total Protein Albumin Tedtn-3-Aceccajka Ldvge-5-Sqrtwqfcs PEP Interpretation Triglycerides LDL Cholesterol Direct HDL Cholesterol Free T4 PTH Intact Urine WBC (Auto) Urine Creatinine Salicylates Acetaminophen Crossmatch 03/30/19 03/30/19 03/30/19 00:40 04:31 05:04 WBC RBC Hgb 7.6 L Hct 23.0 L MCV MCH MCHC RDW Plt Count Lymph % (Auto) [place] % (Auto) Eos % (Auto) Lymph # Clarke # Eos # Seg Neutrophils % Seg Neuts % (Manual) Lymphocytes % (Manual) Monocytes % (Manual) Nucleated RBC % Seg Neutrophils # Seg Neutrophils # Man Lymphocytes # (Manual) Monocytes # (Manual) PT INR D-Dimer Heparin Anti-Xa Level POC ABG pH 7.346 L ABG pH POC ABG pCO2 POC ABG pO2 62 L ABG pO2 ABG HCO3 ABG O2 Saturation ABG Base Excess ABG Hemoglobin Oxyhemoglobin Sodium Potassium Chloride Carbon Dioxide BUN 79 H Creatinine 6.4 H Glucose POC Glucose Lactic Acid Calcium 6.1 L D Ionized Calcium Phosphorus Magnesium Iron TIBC Ferritin Total Bilirubin Direct Bilirubin AST ALT Alkaline Phosphatase Total Creatine Kinase CK-MB (CK-2) Troponin T C-Reactive Protein Serum Total Protein Total Protein Albumin Ngifc-8-Rovlhdokd Sybnt-0-Ewrkaveoc PEP Interpretation Triglycerides LDL Cholesterol Direct HDL Cholesterol Free T4 PTH Intact Urine WBC (Auto) Urine Creatinine Salicylates Acetaminophen Crossmatch 03/30/19 03/30/19 03/30/19 08:45 12:09 22:43 WBC 14.3 H RBC 2.33 L Hgb 7.0 L 7.4 L Hct 21.0 L 22.3 L MCV MCH MCHC RDW 15.6 H Plt Count 135 L Lymph % (Auto) [place] % (Auto) Eos % (Auto) Lymph # Clarke # Eos # Seg Neutrophils % Seg Neuts % (Manual) Lymphocytes % (Manual) Monocytes % (Manual) Nucleated RBC % Seg Neutrophils # Seg Neutrophils # Man Lymphocytes # (Manual) Monocytes # (Manual) PT INR D-Dimer Heparin Anti-Xa Level POC ABG pH ABG pH POC ABG pCO2 POC ABG pO2 ABG pO2 ABG HCO3 ABG O2 Saturation ABG Base Excess ABG Hemoglobin Oxyhemoglobin Sodium Potassium Chloride Carbon Dioxide BUN Creatinine Glucose POC Glucose Lactic Acid Calcium Ionized Calcium 3.7 L Phosphorus Magnesium Iron TIBC Ferritin Total Bilirubin Direct Bilirubin AST ALT Alkaline Phosphatase Total Creatine Kinase CK-MB (CK-2) Troponin T C-Reactive Protein Serum Total Protein Total Protein Albumin Gdidi-0-Prvtyjiwx Kyfnd-8-Cropucxyj PEP Interpretation Triglycerides LDL Cholesterol Direct HDL Cholesterol Free T4 PTH Intact Urine WBC (Auto) Urine Creatinine Salicylates Acetaminophen Crossmatch 03/30/19 03/30/19 03/31/19 23:38 Unknown 04:44 WBC 11.5 H RBC 2.40 L Hgb 7.3 L Hct 21.9 L MCV MCH MCHC RDW 15.4 H Plt Count Lymph % (Auto) 10.6 L [place] % (Auto) Eos % (Auto) Lymph # Clarke # Eos # Seg Neutrophils % 81.7 H Seg Neuts % (Manual) Lymphocytes % (Manual) Monocytes % (Manual) Nucleated RBC % Seg Neutrophils # 9.4 H Seg Neutrophils # Man Lymphocytes # (Manual) Monocytes # (Manual) PT INR D-Dimer Heparin Anti-Xa Level POC ABG pH ABG pH POC ABG pCO2 POC ABG pO2 ABG pO2 ABG HCO3 ABG O2 Saturation ABG Base Excess ABG Hemoglobin Oxyhemoglobin Sodium Potassium Chloride Carbon Dioxide BUN Creatinine Glucose POC Glucose 155 H Lactic Acid Calcium Ionized Calcium Phosphorus Magnesium Iron TIBC Ferritin Total Bilirubin Direct Bilirubin 0.4 H AST 63 H ALT Alkaline Phosphatase Total Creatine Kinase CK-MB (CK-2) Troponin T C-Reactive Protein Serum Total Protein Total Protein 4.9 L Albumin 2.2 L Xiouz-5-Fedjhdzym Auxtv-1-Jkbawdyzc PEP Interpretation Triglycerides LDL Cholesterol Direct HDL Cholesterol Free T4 PTH Intact Urine WBC (Auto) Urine Creatinine Salicylates Acetaminophen Crossmatch 03/31/19 03/31/19 03/31/19 04:44 05:44 08:20 WBC RBC Hgb Hct MCV MCH MCHC RDW Plt Count Lymph % (Auto) [place] % (Auto) Eos % (Auto) Lymph # [place] # Eos # Seg Neutrophils % Seg Neuts % (Manual) Lymphocytes % (Manual) Monocytes % (Manual) Nucleated RBC % Seg Neutrophils # Seg Neutrophils # Man Lymphocytes # (Manual) Monocytes # (Manual) PT INR D-Dimer Heparin Anti-Xa Level POC ABG pH ABG pH POC ABG pCO2 53.5 H POC ABG pO2 62 L ABG pO2 ABG HCO3 ABG O2 Saturation ABG Base Excess ABG Hemoglobin Oxyhemoglobin Sodium 135 L Potassium Chloride 96.7 L Carbon Dioxide 19 L BUN 94 H Creatinine 7.8 H Glucose POC Glucose Lactic Acid Calcium 5.3 L* Ionized Calcium Phosphorus 8.20 H Magnesium Iron TIBC Ferritin Total Bilirubin Direct Bilirubin 0.4 H AST 60 H ALT Alkaline Phosphatase Total Creatine Kinase CK-MB (CK-2) Troponin T C-Reactive Protein Serum Total Protein Total Protein 4.8 L Albumin 2.1 L Aknvu-5-Jpgzypook Fmtqc-4-Rxxflfncr PEP Interpretation Triglycerides LDL Cholesterol Direct HDL Cholesterol Free T4 PTH Intact Urine WBC (Auto) Urine Creatinine Salicylates Acetaminophen Crossmatch 03/31/19 04/01/19 04/01/19 22:14 04:27 04:27 WBC RBC 2.60 L Hgb 8.0 L Hct 24.1 L MCV MCH MCHC RDW 15.7 H Plt Count Lymph % (Auto) 7.9 L [place] % (Auto) Eos % (Auto) Lymph # 0.7 L [place] # Eos # Seg Neutrophils % 83.6 H Seg Neuts % (Manual) Lymphocytes % (Manual) Monocytes % (Manual) Nucleated RBC % Seg Neutrophils # Seg Neutrophils # Man Lymphocytes # (Manual) Monocytes # (Manual) PT INR D-Dimer Heparin Anti-Xa Level POC ABG pH 7.286 L ABG pH POC ABG pCO2 54.7 H POC ABG pO2 179 H ABG pO2 ABG HCO3 ABG O2 Saturation ABG Base Excess ABG Hemoglobin Oxyhemoglobin Sodium Potassium Chloride Carbon Dioxide BUN 68 H Creatinine 6.6 H Glucose POC Glucose Lactic Acid Calcium 6.5 L D Ionized Calcium Phosphorus 7.30 H Magnesium Iron TIBC Ferritin Total Bilirubin Direct Bilirubin AST ALT Alkaline Phosphatase Total Creatine Kinase 1652 H CK-MB (CK-2) Troponin T C-Reactive Protein Serum Total Protein Total Protein Albumin Rskfp-8-Kzhsblroh Pnlcq-7-Bxlitawjt PEP Interpretation Triglycerides LDL Cholesterol Direct HDL Cholesterol Free T4 PTH Intact Urine WBC (Auto) Urine Creatinine Salicylates Acetaminophen Crossmatch 04/01/19 04/01/19 04/01/19 05:14 05:37 18:37 WBC RBC Hgb Hct MCV MCH MCHC RDW Plt Count Lymph % (Auto) [place] % (Auto) Eos % (Auto) Lymph # [place] # Eos # Seg Neutrophils % Seg Neuts % (Manual) Lymphocytes % (Manual) Monocytes % (Manual) Nucleated RBC % Seg Neutrophils # Seg Neutrophils # Man Lymphocytes # (Manual) Monocytes # (Manual) PT INR D-Dimer Heparin Anti-Xa Level POC ABG pH 7.283 L ABG pH POC ABG pCO2 53.4 H POC ABG pO2 241 H ABG pO2 ABG HCO3 ABG O2 Saturation ABG Base Excess ABG Hemoglobin Oxyhemoglobin Sodium Potassium Chloride Carbon Dioxide BUN Creatinine Glucose POC Glucose 111 H 119 H Lactic Acid Calcium Ionized Calcium Phosphorus Magnesium Iron TIBC Ferritin Total Bilirubin Direct Bilirubin AST ALT Alkaline Phosphatase Total Creatine Kinase CK-MB (CK-2) Troponin T C-Reactive Protein Serum Total Protein Total Protein Albumin Vvyus-5-Rjtgxzipj Pnisn-7-Ebxfloddp PEP Interpretation Triglycerides LDL Cholesterol Direct HDL Cholesterol Free T4 PTH Intact Urine WBC (Auto) Urine Creatinine Salicylates Acetaminophen Crossmatch 04/01/19 04/02/19 04/02/19 21:28 04:40 05:03 WBC RBC 2.36 L Hgb 7.2 L Hct 21.9 L MCV MCH MCHC RDW 16.0 H Plt Count Lymph % (Auto) 10.8 L [place] % (Auto) Eos % (Auto) Lymph # 0.8 L [place] # Eos # Seg Neutrophils % 80.3 H Seg Neuts % (Manual) Lymphocytes % (Manual) Monocytes % (Manual) Nucleated RBC % Seg Neutrophils # Seg Neutrophils # Man Lymphocytes # (Manual) Monocytes # (Manual) PT INR D-Dimer Heparin Anti-Xa Level POC ABG pH 7.299 L 7.300 L ABG pH POC ABG pCO2 48.2 H 45.2 H POC ABG pO2 133 H 107 H ABG pO2 ABG HCO3 ABG O2 Saturation ABG Base Excess ABG Hemoglobin Oxyhemoglobin Sodium Potassium Chloride Carbon Dioxide BUN Creatinine Glucose POC Glucose Lactic Acid Calcium Ionized Calcium Phosphorus Magnesium Iron TIBC Ferritin Total Bilirubin Direct Bilirubin AST ALT Alkaline Phosphatase Total Creatine Kinase CK-MB (CK-2) Troponin T C-Reactive Protein Serum Total Protein Total Protein Albumin Mjhlv-0-Tsmdupirp Oktoj-7-Esmgfjmec PEP Interpretation Triglycerides LDL Cholesterol Direct HDL Cholesterol Free T4 PTH Intact Urine WBC (Auto) Urine Creatinine Salicylates Acetaminophen Crossmatch 04/02/19 04/02/19 04/02/19 05:03 05:03 12:15 WBC RBC Hgb 7.4 L Hct 22.6 L MCV MCH MCHC RDW Plt Count Lymph % (Auto) [place] % (Auto) Eos % (Auto) Lymph # [place] # Eos # Seg Neutrophils % Seg Neuts % (Manual) Lymphocytes % (Manual) Monocytes % (Manual) Nucleated RBC % Seg Neutrophils # Seg Neutrophils # Man Lymphocytes # (Manual) Monocytes # (Manual) PT INR D-Dimer Heparin Anti-Xa Level POC ABG pH ABG pH POC ABG pCO2 POC ABG pO2 ABG pO2 ABG HCO3 ABG O2 Saturation ABG Base Excess ABG Hemoglobin Oxyhemoglobin Sodium 136 L Potassium Chloride 97.8 L Carbon Dioxide 18 L BUN 82 H Creatinine 8.2 H Glucose POC Glucose Lactic Acid Calcium 6.7 L Ionized Calcium Phosphorus 7.50 H Magnesium Iron 26 L TIBC 138 L Ferritin 607.0 H Total Bilirubin Direct Bilirubin AST ALT Alkaline Phosphatase Total Creatine Kinase CK-MB (CK-2) Troponin T C-Reactive Protein Serum Total Protein Total Protein Albumin Fsdif-9-Ltfwtofio Dzjvy-1-Wqcnrpizj PEP Interpretation Triglycerides LDL Cholesterol Direct HDL Cholesterol Free T4 PTH Intact Urine WBC (Auto) Urine Creatinine Salicylates Acetaminophen Crossmatch 04/02/19 04/02/19 04/03/19 16:34 17:14 04:18 WBC RBC Hgb Hct MCV MCH MCHC RDW Plt Count Lymph % (Auto) [place] % (Auto) Eos % (Auto) Lymph # [place] # Eos # Seg Neutrophils % Seg Neuts % (Manual) Lymphocytes % (Manual) Monocytes % (Manual) Nucleated RBC % Seg Neutrophils # Seg Neutrophils # Man Lymphocytes # (Manual) Monocytes # (Manual) PT INR D-Dimer Heparin Anti-Xa Level POC ABG pH ABG pH POC ABG pCO2 POC ABG pO2 146 H ABG pO2 ABG HCO3 ABG O2 Saturation ABG Base Excess ABG Hemoglobin Oxyhemoglobin Sodium Potassium Chloride Carbon Dioxide BUN Creatinine Glucose POC Glucose 108 H Lactic Acid Calcium Ionized Calcium Phosphorus Magnesium Iron TIBC Ferritin Total Bilirubin Direct Bilirubin AST ALT Alkaline Phosphatase Total Creatine Kinase CK-MB (CK-2) Troponin T C-Reactive Protein Serum Total Protein Total Protein Albumin Afaqz-4-Gazreerku Kowyq-6-Yxjuhwzra PEP Interpretation Triglycerides LDL Cholesterol Direct HDL Cholesterol Free T4 PTH Intact Urine WBC (Auto) Urine Creatinine Salicylates Acetaminophen Crossmatch See Detail 04/03/19 04/03/19 04/03/19 04:25 08:30 18:24 WBC RBC 2.40 L Hgb 7.3 L Hct 21.9 L MCV MCH MCHC RDW Plt Count Lymph % (Auto) [place] % (Auto) 7.7 H Eos % (Auto) Lymph # 0.9 L [place] # Eos # Seg Neutrophils % 74.6 H Seg Neuts % (Manual) Lymphocytes % (Manual) Monocytes % (Manual) Nucleated RBC % Seg Neutrophils # Seg Neutrophils # Man Lymphocytes # (Manual) Monocytes # (Manual) PT INR D-Dimer Heparin Anti-Xa Level POC ABG pH ABG pH POC ABG pCO2 POC ABG pO2 ABG pO2 ABG HCO3 ABG O2 Saturation ABG Base Excess ABG Hemoglobin Oxyhemoglobin Sodium 136 L Potassium Chloride 97.0 L Carbon Dioxide BUN 58 H Creatinine 7.3 H Glucose POC Glucose 106 H Lactic Acid Calcium 7.5 L Ionized Calcium Phosphorus 5.80 H D Magnesium Iron TIBC Ferritin Total Bilirubin Direct Bilirubin AST ALT Alkaline Phosphatase Total Creatine Kinase CK-MB (CK-2) Troponin T C-Reactive Protein Serum Total Protein Total Protein Albumin Tfxzi-0-Hkpcpvqod Qcitw-1-Anelujfxw PEP Interpretation Triglycerides LDL Cholesterol Direct HDL Cholesterol Free T4 PTH Intact Urine WBC (Auto) Urine Creatinine Salicylates Acetaminophen Crossmatch 04/03/19 04/04/19 04/04/19 23:43 04:47 04:47 WBC RBC 2.72 L Hgb 8.3 L Hct 24.7 L MCV MCH MCHC RDW 15.6 H Plt Count Lymph % (Auto) [place] % (Auto) 10.1 H Eos % (Auto) Lymph # 0.8 L [place] # Eos # Seg Neutrophils % 71.4 H Seg Neuts % (Manual) Lymphocytes % (Manual) Monocytes % (Manual) Nucleated RBC % Seg Neutrophils # Seg Neutrophils # Man Lymphocytes # (Manual) Monocytes # (Manual) PT INR D-Dimer Heparin Anti-Xa Level POC ABG pH ABG pH POC ABG pCO2 POC ABG pO2 ABG pO2 123.8 H ABG HCO3 ABG O2 Saturation ABG Base Excess -3.0 L ABG Hemoglobin 7.9 L Oxyhemoglobin Sodium 134 L Potassium Chloride 97.9 L Carbon Dioxide BUN 64 H Creatinine 8.1 H Glucose POC Glucose Lactic Acid Calcium 7.2 L Ionized Calcium Phosphorus Magnesium Iron TIBC Ferritin Total Bilirubin Direct Bilirubin AST ALT Alkaline Phosphatase Total Creatine Kinase CK-MB (CK-2) Troponin T C-Reactive Protein Serum Total Protein Total Protein Albumin Ivlkv-1-Ovkdjagzz Bgjcu-6-Xakhmfadi PEP Interpretation Triglycerides LDL Cholesterol Direct HDL Cholesterol Free T4 PTH Intact Urine WBC (Auto) Urine Creatinine Salicylates Acetaminophen Crossmatch 04/04/19 04/04/19 04/04/19 06:07 13:40 18:18 WBC RBC Hgb Hct MCV MCH MCHC RDW Plt Count Lymph % (Auto) [place] % (Auto) Eos % (Auto) Lymph # [place] # Eos # Seg Neutrophils % Seg Neuts % (Manual) Lymphocytes % (Manual) Monocytes % (Manual) Nucleated RBC % Seg Neutrophils # Seg Neutrophils # Man Lymphocytes # (Manual) Monocytes # (Manual) PT INR D-Dimer Heparin Anti-Xa Level POC ABG pH ABG pH POC ABG pCO2 POC ABG pO2 ABG pO2 95.9 H ABG HCO3 ABG O2 Saturation ABG Base Excess -3.0 L ABG Hemoglobin 8.5 L Oxyhemoglobin Sodium Potassium Chloride Carbon Dioxide BUN Creatinine Glucose POC Glucose 107 H 107 H Lactic Acid Calcium Ionized Calcium Phosphorus Magnesium Iron TIBC Ferritin Total Bilirubin Direct Bilirubin AST ALT Alkaline Phosphatase Total Creatine Kinase CK-MB (CK-2) Troponin T C-Reactive Protein Serum Total Protein Total Protein Albumin Shtjc-4-Vdvruzqta Htmpr-1-Impbuqaip PEP Interpretation Triglycerides LDL Cholesterol Direct HDL Cholesterol Free T4 PTH Intact Urine WBC (Auto) Urine Creatinine Salicylates Acetaminophen Crossmatch 04/04/19 04/05/19 04/05/19 21:22 04:09 04:09 WBC RBC 2.76 L Hgb 8.4 L Hct 25.4 L MCV MCH MCHC RDW 15.8 H Plt Count 133 L Lymph % (Auto) [place] % (Auto) 9.6 H Eos % (Auto) Lymph # 0.7 L [place] # Eos # Seg Neutrophils % 72.6 H Seg Neuts % (Manual) Lymphocytes % (Manual) Monocytes % (Manual) Nucleated RBC % Seg Neutrophils # Seg Neutrophils # Man Lymphocytes # (Manual) Monocytes # (Manual) PT INR D-Dimer Heparin Anti-Xa Level POC ABG pH ABG pH POC ABG pCO2 47.2 H POC ABG pO2 137 H ABG pO2 ABG HCO3 ABG O2 Saturation ABG Base Excess ABG Hemoglobin Oxyhemoglobin Sodium 136 L Potassium Chloride Carbon Dioxide BUN 46 H Creatinine 6.7 H Glucose POC Glucose Lactic Acid Calcium 7.7 L Ionized Calcium Phosphorus Magnesium Iron TIBC Ferritin Total Bilirubin Direct Bilirubin AST ALT Alkaline Phosphatase Total Creatine Kinase CK-MB (CK-2) Troponin T C-Reactive Protein Serum Total Protein Total Protein Albumin Kknih-0-Ypxlbzomu Clwel-9-Kwhyrvpik PEP Interpretation Triglycerides LDL Cholesterol Direct HDL Cholesterol Free T4 PTH Intact Urine WBC (Auto) Urine Creatinine Salicylates Acetaminophen Crossmatch 04/05/19 04/05/19 04/05/19 05:28 06:14 16:50 WBC RBC Hgb Hct MCV MCH MCHC RDW Plt Count Lymph % (Auto) [place] % (Auto) Eos % (Auto) Lymph # [place] # Eos # Seg Neutrophils % Seg Neuts % (Manual) Lymphocytes % (Manual) Monocytes % (Manual) Nucleated RBC % Seg Neutrophils # Seg Neutrophils # Man Lymphocytes # (Manual) Monocytes # (Manual) PT INR D-Dimer Heparin Anti-Xa Level POC ABG pH ABG pH POC ABG pCO2 POC ABG pO2 67 L ABG pO2 ABG HCO3 ABG O2 Saturation ABG Base Excess ABG Hemoglobin Oxyhemoglobin Sodium Potassium Chloride Carbon Dioxide BUN Creatinine Glucose POC Glucose 108 H Lactic Acid Calcium Ionized Calcium Phosphorus Magnesium Iron TIBC Ferritin Total Bilirubin Direct Bilirubin AST ALT Alkaline Phosphatase Total Creatine Kinase CK-MB (CK-2) Troponin T C-Reactive Protein Serum Total Protein Total Protein Albumin Aoirn-4-Fuxybjwwm Izniv-9-Dgwjtiaky PEP Interpretation Triglycerides LDL Cholesterol Direct HDL Cholesterol Free T4 PTH Intact Urine WBC (Auto) 40.0 H Urine Creatinine Salicylates Acetaminophen Crossmatch 04/05/19 04/06/19 04/06/19 17:22 00:13 04:44 WBC RBC 2.48 L Hgb 7.5 L Hct 22.9 L MCV MCH MCHC RDW 16.0 H Plt Count 107 L Lymph % (Auto) [place] % (Auto) 10.7 H Eos % (Auto) Lymph # 1.0 L [place] # Eos # Seg Neutrophils % Seg Neuts % (Manual) Lymphocytes % (Manual) Monocytes % (Manual) Nucleated RBC % Seg Neutrophils # Seg Neutrophils # Man Lymphocytes # (Manual) Monocytes # (Manual) PT INR D-Dimer Heparin Anti-Xa Level POC ABG pH ABG pH POC ABG pCO2 POC ABG pO2 ABG pO2 ABG HCO3 ABG O2 Saturation ABG Base Excess ABG Hemoglobin Oxyhemoglobin Sodium Potassium Chloride Carbon Dioxide BUN Creatinine Glucose POC Glucose 118 H 138 H Lactic Acid Calcium Ionized Calcium Phosphorus Magnesium Iron TIBC Ferritin Total Bilirubin Direct Bilirubin AST ALT Alkaline Phosphatase Total Creatine Kinase CK-MB (CK-2) Troponin T C-Reactive Protein Serum Total Protein Total Protein Albumin Vqyzg-6-Vikmqvbuh Gyqja-0-Acgcclwon PEP Interpretation Triglycerides LDL Cholesterol Direct HDL Cholesterol Free T4 PTH Intact Urine WBC (Auto) Urine Creatinine Salicylates Acetaminophen Crossmatch 04/06/19 04/06/19 04/06/19 04:44 05:20 05:23 WBC RBC Hgb Hct MCV MCH MCHC RDW Plt Count Lymph % (Auto) [place] % (Auto) Eos % (Auto) Lymph # [place] # Eos # Seg Neutrophils % Seg Neuts % (Manual) Lymphocytes % (Manual) Monocytes % (Manual) Nucleated RBC % Seg Neutrophils # Seg Neutrophils # Man Lymphocytes # (Manual) Monocytes # (Manual) PT INR D-Dimer Heparin Anti-Xa Level POC ABG pH ABG pH POC ABG pCO2 POC ABG pO2 ABG pO2 104.0 H ABG HCO3 ABG O2 Saturation ABG Base Excess -2.1 L ABG Hemoglobin 7.3 L Oxyhemoglobin Sodium Potassium Chloride Carbon Dioxide BUN 64 H Creatinine 8.2 H Glucose 103 H POC Glucose 118 H Lactic Acid Calcium 7.3 L Ionized Calcium Phosphorus Magnesium Iron TIBC Ferritin Total Bilirubin Direct Bilirubin AST ALT Alkaline Phosphatase Total Creatine Kinase CK-MB (CK-2) Troponin T C-Reactive Protein Serum Total Protein Total Protein Albumin Qhnjn-3-Fwbsrgwkw Yacmv-6-Wamypcidz PEP Interpretation Triglycerides LDL Cholesterol Direct HDL Cholesterol Free T4 PTH Intact Urine WBC (Auto) Urine Creatinine Salicylates Acetaminophen Crossmatch 04/06/19 04/07/19 04/07/19 12:02 05:40 05:40 WBC RBC 2.59 L Hgb 7.9 L Hct 23.8 L MCV MCH MCHC RDW 15.8 H Plt Count 89 L Lymph % (Auto) [place] % (Auto) 10.3 H Eos % (Auto) Lymph # 1.1 L [place] # Eos # Seg Neutrophils % Seg Neuts % (Manual) Lymphocytes % (Manual) Monocytes % (Manual) Nucleated RBC % Seg Neutrophils # Seg Neutrophils # Man Lymphocytes # (Manual) Monocytes # (Manual) PT INR D-Dimer Heparin Anti-Xa Level POC ABG pH ABG pH POC ABG pCO2 POC ABG pO2 ABG pO2 ABG HCO3 ABG O2 Saturation ABG Base Excess ABG Hemoglobin Oxyhemoglobin Sodium 136 L Potassium 3.5 L Chloride Carbon Dioxide BUN 46 H Creatinine 6.2 H Glucose POC Glucose 108 H Lactic Acid Calcium 7.9 L Ionized Calcium Phosphorus Magnesium Iron TIBC Ferritin Total Bilirubin Direct Bilirubin AST ALT Alkaline Phosphatase Total Creatine Kinase CK-MB (CK-2) Troponin T C-Reactive Protein Serum Total Protein Total Protein Albumin Eummm-9-Nskhrnplm Xjwha-4-Djbmkrvpz PEP Interpretation Triglycerides LDL Cholesterol Direct HDL Cholesterol Free T4 PTH Intact Urine WBC (Auto) Urine Creatinine Salicylates Acetaminophen Crossmatch 04/07/19 04/09/19 04/09/19 12:57 04:28 04:28 WBC RBC 2.85 L Hgb 8.7 L Hct 26.2 L MCV MCH MCHC RDW 15.6 H Plt Count Lymph % (Auto) Clarke % (Auto) 10.4 H Eos % (Auto) Lymph # 1.0 L Clarke # Eos # Seg Neutrophils % 73.3 H Seg Neuts % (Manual) Lymphocytes % (Manual) Monocytes % (Manual) Nucleated RBC % Seg Neutrophils # Seg Neutrophils # Man Lymphocytes # (Manual) Monocytes # (Manual) PT INR D-Dimer Heparin Anti-Xa Level POC ABG pH ABG pH POC ABG pCO2 POC ABG pO2 107 H ABG pO2 ABG HCO3 ABG O2 Saturation ABG Base Excess ABG Hemoglobin Oxyhemoglobin Sodium Potassium 3.5 L Chloride 97.8 L Carbon Dioxide BUN 62 H Creatinine 8.1 H Glucose POC Glucose Lactic Acid Calcium 8.2 L Ionized Calcium Phosphorus 5.10 H Magnesium Iron TIBC Ferritin Total Bilirubin Direct Bilirubin AST ALT Alkaline Phosphatase Total Creatine Kinase CK-MB (CK-2) Troponin T C-Reactive Protein Serum Total Protein Total Protein Albumin Cqerq-8-Vgznilyjb Qhtom-2-Ssmbdvcyr PEP Interpretation Triglycerides LDL Cholesterol Direct HDL Cholesterol Free T4 PTH Intact Urine WBC (Auto) Urine Creatinine Salicylates Acetaminophen Crossmatch 04/10/19 04/11/19 04/11/19 18:15 00:25 04:16 WBC 11.5 H RBC 2.91 L Hgb 8.9 L Hct 27.6 L MCV 95 H MCH MCHC RDW 17.5 H Plt Count Lymph % (Auto) Clarke % (Auto) Eos % (Auto) Lymph # Clarke # Eos # Seg Neutrophils % Seg Neuts % (Manual) 71.0 H Lymphocytes % (Manual) Monocytes % (Manual) 8.0 H Nucleated RBC % Seg Neutrophils # Seg Neutrophils # Man 8.2 H Lymphocytes # (Manual) Monocytes # (Manual) 0.9 H PT INR D-Dimer Heparin Anti-Xa Level POC ABG pH ABG pH POC ABG pCO2 POC ABG pO2 ABG pO2 ABG HCO3 ABG O2 Saturation ABG Base Excess ABG Hemoglobin Oxyhemoglobin Sodium Potassium Chloride Carbon Dioxide BUN Creatinine Glucose POC Glucose 109 H 114 H Lactic Acid Calcium Ionized Calcium Phosphorus Magnesium Iron TIBC Ferritin Total Bilirubin Direct Bilirubin AST ALT Alkaline Phosphatase Total Creatine Kinase CK-MB (CK-2) Troponin T C-Reactive Protein Serum Total Protein Total Protein Albumin Zxruj-1-Nrvapslxl Zuptb-7-Gjxhlcotr PEP Interpretation Triglycerides LDL Cholesterol Direct HDL Cholesterol Free T4 PTH Intact Urine WBC (Auto) Urine Creatinine Salicylates Acetaminophen Crossmatch 04/11/19 04/11/19 04/11/19 06:47 09:21 12:15 WBC RBC Hgb Hct MCV MCH MCHC RDW Plt Count Lymph % (Auto) Clarke % (Auto) Eos % (Auto) Lymph # Clarke # Eos # Seg Neutrophils % Seg Neuts % (Manual) Lymphocytes % (Manual) Monocytes % (Manual) Nucleated RBC % Seg Neutrophils # Seg Neutrophils # Man Lymphocytes # (Manual) Monocytes # (Manual) PT INR D-Dimer Heparin Anti-Xa Level POC ABG pH ABG pH POC ABG pCO2 POC ABG pO2 ABG pO2 ABG HCO3 ABG O2 Saturation ABG Base Excess ABG Hemoglobin Oxyhemoglobin Sodium Potassium 3.5 L Chloride Carbon Dioxide BUN 45 H Creatinine 6.0 H Glucose 113 H POC Glucose 106 H 109 H Lactic Acid Calcium Ionized Calcium Phosphorus Magnesium Iron TIBC Ferritin Total Bilirubin Direct Bilirubin AST ALT Alkaline Phosphatase Total Creatine Kinase CK-MB (CK-2) Troponin T C-Reactive Protein Serum Total Protein Total Protein Albumin Jbohk-0-Ymlgavozu Legpi-3-Hxjgwpfns PEP Interpretation Triglycerides LDL Cholesterol Direct HDL Cholesterol Free T4 PTH Intact Urine WBC (Auto) Urine Creatinine Salicylates Acetaminophen Crossmatch 04/11/19 04/12/19 04/12/19 18:42 12:13 23:52 WBC RBC Hgb Hct MCV MCH MCHC RDW Plt Count Lymph % (Auto) [place] % (Auto) Eos % (Auto) Lymph # Clarke # Eos # Seg Neutrophils % Seg Neuts % (Manual) Lymphocytes % (Manual) Monocytes % (Manual) Nucleated RBC % Seg Neutrophils # Seg Neutrophils # Man Lymphocytes # (Manual) Monocytes # (Manual) PT INR D-Dimer Heparin Anti-Xa Level POC ABG pH ABG pH POC ABG pCO2 POC ABG pO2 ABG pO2 ABG HCO3 ABG O2 Saturation ABG Base Excess ABG Hemoglobin Oxyhemoglobin Sodium Potassium Chloride Carbon Dioxide BUN Creatinine Glucose POC Glucose 107 H 115 H 124 H Lactic Acid Calcium Ionized Calcium Phosphorus Magnesium Iron TIBC Ferritin Total Bilirubin Direct Bilirubin AST ALT Alkaline Phosphatase Total Creatine Kinase CK-MB (CK-2) Troponin T C-Reactive Protein Serum Total Protein Total Protein Albumin Kmmhk-3-Qdythdfca Cbmxx-8-Uzvllhcws PEP Interpretation Triglycerides LDL Cholesterol Direct HDL Cholesterol Free T4 PTH Intact Urine WBC (Auto) Urine Creatinine Salicylates Acetaminophen Crossmatch 04/13/19 04/13/19 04/13/19 05:00 05:00 05:47 WBC 11.7 H RBC 2.97 L Hgb 8.8 L Hct 27.3 L MCV MCH MCHC RDW 16.1 H Plt Count Lymph % (Auto) 9.5 L [place] % (Auto) 9.9 H Eos % (Auto) Lymph # 1.1 L Clarke # 1.2 H Eos # Seg Neutrophils % 78.6 H Seg Neuts % (Manual) Lymphocytes % (Manual) Monocytes % (Manual) Nucleated RBC % Seg Neutrophils # 9.2 H Seg Neutrophils # Man Lymphocytes # (Manual) Monocytes # (Manual) PT INR D-Dimer Heparin Anti-Xa Level POC ABG pH ABG pH POC ABG pCO2 POC ABG pO2 ABG pO2 ABG HCO3 ABG O2 Saturation ABG Base Excess ABG Hemoglobin Oxyhemoglobin Sodium Potassium 3.5 L Chloride Carbon Dioxide BUN 42 H Creatinine 4.6 H Glucose 106 H POC Glucose 107 H Lactic Acid Calcium 10.6 H D Ionized Calcium Phosphorus 5.90 H Magnesium Iron TIBC Ferritin Total Bilirubin Direct Bilirubin AST ALT Alkaline Phosphatase Total Creatine Kinase CK-MB (CK-2) Troponin T C-Reactive Protein Serum Total Protein Total Protein 5.8 L Albumin 2.5 L Jzmnh-1-Vqlgunwwj Dwsnr-5-Lvvqtvjrz PEP Interpretation Triglycerides LDL Cholesterol Direct HDL Cholesterol Free T4 PTH Intact Urine WBC (Auto) Urine Creatinine Salicylates Acetaminophen Crossmatch 04/13/19 04/14/19 04/14/19 17:32 00:00 03:55 WBC RBC Hgb Hct MCV MCH MCHC RDW Plt Count Lymph % (Auto) [place] % (Auto) Eos % (Auto) Lymph # Clarke # Eos # Seg Neutrophils % Seg Neuts % (Manual) Lymphocytes % (Manual) Monocytes % (Manual) Nucleated RBC % Seg Neutrophils # Seg Neutrophils # Man Lymphocytes # (Manual) Monocytes # (Manual) PT INR D-Dimer Heparin Anti-Xa Level POC ABG pH ABG pH POC ABG pCO2 POC ABG pO2 ABG pO2 ABG HCO3 ABG O2 Saturation ABG Base Excess ABG Hemoglobin Oxyhemoglobin Sodium Potassium 3.0 L Chloride Carbon Dioxide BUN 30 H Creatinine 3.1 H Glucose POC Glucose 112 H 120 H Lactic Acid Calcium 10.8 H Ionized Calcium Phosphorus Magnesium Iron TIBC Ferritin Total Bilirubin Direct Bilirubin AST ALT Alkaline Phosphatase Total Creatine Kinase CK-MB (CK-2) Troponin T C-Reactive Protein Serum Total Protein Total Protein Albumin Hftmr-2-Pdtbpvhlv Dcbwu-0-Xqszrxoiu PEP Interpretation Triglycerides LDL Cholesterol Direct HDL Cholesterol Free T4 PTH Intact Urine WBC (Auto) Urine Creatinine Salicylates Acetaminophen Crossmatch 04/14/19 04/14/19 04/15/19 11:56 23:28 05:11 WBC 13.0 H RBC 2.93 L Hgb 8.6 L Hct 26.5 L MCV MCH MCHC RDW 16.5 H Plt Count Lymph % (Auto) 12.2 L [place] % (Auto) 9.1 H Eos % (Auto) Lymph # Clarke # 1.2 H Eos # Seg Neutrophils % 77.6 H Seg Neuts % (Manual) Lymphocytes % (Manual) Monocytes % (Manual) Nucleated RBC % Seg Neutrophils # 10.1 H Seg Neutrophils # Man Lymphocytes # (Manual) Monocytes # (Manual) PT INR D-Dimer Heparin Anti-Xa Level POC ABG pH ABG pH POC ABG pCO2 POC ABG pO2 ABG pO2 ABG HCO3 ABG O2 Saturation ABG Base Excess ABG Hemoglobin Oxyhemoglobin Sodium Potassium Chloride Carbon Dioxide BUN Creatinine Glucose POC Glucose 109 H 112 H Lactic Acid Calcium Ionized Calcium Phosphorus Magnesium Iron TIBC Ferritin Total Bilirubin Direct Bilirubin AST ALT Alkaline Phosphatase Total Creatine Kinase CK-MB (CK-2) Troponin T C-Reactive Protein Serum Total Protein Total Protein Albumin Cnnad-8-Cfpsrfgsk Chqtd-2-Wurpwbwnb PEP Interpretation Triglycerides LDL Cholesterol Direct HDL Cholesterol Free T4 PTH Intact Urine WBC (Auto) Urine Creatinine Salicylates Acetaminophen Crossmatch 04/15/19 04/15/19 04/15/19 05:11 05:31 18:03 WBC RBC Hgb Hct MCV MCH MCHC RDW Plt Count Lymph % (Auto) [place] % (Auto) Eos % (Auto) Lymph # Clarke # Eos # Seg Neutrophils % Seg Neuts % (Manual) Lymphocytes % (Manual) Monocytes % (Manual) Nucleated RBC % Seg Neutrophils # Seg Neutrophils # Man Lymphocytes # (Manual) Monocytes # (Manual) PT INR D-Dimer Heparin Anti-Xa Level POC ABG pH ABG pH POC ABG pCO2 POC ABG pO2 ABG pO2 ABG HCO3 ABG O2 Saturation ABG Base Excess ABG Hemoglobin Oxyhemoglobin Sodium Potassium 3.2 L Chloride Carbon Dioxide BUN 44 H Creatinine 3.6 H Glucose 106 H POC Glucose 110 H 121 H Lactic Acid Calcium 12.0 H Ionized Calcium Phosphorus 5.00 H Magnesium Iron TIBC Ferritin Total Bilirubin Direct Bilirubin AST ALT Alkaline Phosphatase Total Creatine Kinase CK-MB (CK-2) Troponin T C-Reactive Protein Serum Total Protein Total Protein Albumin Wwyiu-9-Vcbxplepx Vrkam-4-Gdsugvxdf PEP Interpretation Triglycerides LDL Cholesterol Direct HDL Cholesterol Free T4 PTH Intact Urine WBC (Auto) Urine Creatinine Salicylates Acetaminophen Crossmatch 04/16/19 04/16/19 04/17/19 05:07 05:07 04:15 WBC 12.6 H RBC 3.12 L Hgb 9.0 L Hct 28.2 L MCV MCH MCHC RDW 16.6 H Plt Count Lymph % (Auto) 10.3 L [place] % (Auto) 9.8 H Eos % (Auto) Lymph # Clarke # 1.2 H Eos # Seg Neutrophils % 78.2 H Seg Neuts % (Manual) Lymphocytes % (Manual) Monocytes % (Manual) Nucleated RBC % Seg Neutrophils # 9.9 H Seg Neutrophils # Man Lymphocytes # (Manual) Monocytes # (Manual) PT INR D-Dimer Heparin Anti-Xa Level POC ABG pH ABG pH POC ABG pCO2 POC ABG pO2 ABG pO2 ABG HCO3 ABG O2 Saturation ABG Base Excess ABG Hemoglobin Oxyhemoglobin Sodium 147 H 150 H Potassium 3.5 L 3.1 L Chloride Carbon Dioxide 32 H BUN 54 H 65 H Creatinine 3.8 H 4.0 H Glucose 102 H 107 H POC Glucose Lactic Acid Calcium 11.7 H 12.0 H Ionized Calcium Phosphorus 5.40 H Magnesium Iron TIBC Ferritin Total Bilirubin Direct Bilirubin AST ALT Alkaline Phosphatase Total Creatine Kinase CK-MB (CK-2) Troponin T C-Reactive Protein 7.10 H Serum Total Protein Total Protein Albumin Rivwi-9-Qgmrbymmd Nunbr-4-Sbdymchfx PEP Interpretation Triglycerides LDL Cholesterol Direct HDL Cholesterol Free T4 PTH Intact Urine WBC (Auto) Urine Creatinine Salicylates Acetaminophen Crossmatch 04/17/19 04/17/19 04/17/19 04:15 06:05 12:49 WBC 15.8 H RBC 3.32 L Hgb 9.5 L Hct 29.9 L MCV MCH MCHC RDW 16.9 H Plt Count Lymph % (Auto) 12.6 L [place] % (Auto) 11.1 H Eos % (Auto) Lymph # Clarke # 1.7 H Eos # Seg Neutrophils % 74.7 H Seg Neuts % (Manual) Lymphocytes % (Manual) Monocytes % (Manual) Nucleated RBC % Seg Neutrophils # 11.8 H Seg Neutrophils # Man Lymphocytes # (Manual) Monocytes # (Manual) PT INR D-Dimer Heparin Anti-Xa Level POC ABG pH ABG pH POC ABG pCO2 POC ABG pO2 ABG pO2 ABG HCO3 ABG O2 Saturation ABG Base Excess ABG Hemoglobin Oxyhemoglobin Sodium Potassium Chloride Carbon Dioxide BUN Creatinine Glucose POC Glucose 111 H 108 H Lactic Acid Calcium Ionized Calcium Phosphorus Magnesium Iron TIBC Ferritin Total Bilirubin Direct Bilirubin AST ALT Alkaline Phosphatase Total Creatine Kinase CK-MB (CK-2) Troponin T C-Reactive Protein Serum Total Protein Total Protein Albumin Vggbg-9-Zimltyfcg Sdlsn-7-Dsfszmnmh PEP Interpretation Triglycerides LDL Cholesterol Direct HDL Cholesterol Free T4 PTH Intact Urine WBC (Auto) Urine Creatinine Salicylates Acetaminophen Crossmatch 04/18/19 04/18/19 04/18/19 00:23 04:41 04:41 WBC 19.4 H RBC 3.03 L Hgb 8.6 L Hct 27.5 L MCV MCH MCHC 31 L RDW 16.9 H Plt Count Lymph % (Auto) [place] % (Auto) Eos % (Auto) Lymph # Clarke # Eos # Seg Neutrophils % Seg Neuts % (Manual) Lymphocytes % (Manual) Monocytes % (Manual) Nucleated RBC % Seg Neutrophils # Seg Neutrophils # Man Lymphocytes # (Manual) Monocytes # (Manual) PT INR D-Dimer Heparin Anti-Xa Level POC ABG pH ABG pH POC ABG pCO2 POC ABG pO2 ABG pO2 ABG HCO3 ABG O2 Saturation ABG Base Excess ABG Hemoglobin Oxyhemoglobin Sodium 152 H Potassium 3.0 L Chloride Carbon Dioxide BUN 80 H Creatinine 4.3 H Glucose 103 H POC Glucose 115 H Lactic Acid Calcium 11.4 H Ionized Calcium Phosphorus Magnesium Iron TIBC Ferritin Total Bilirubin Direct Bilirubin AST ALT Alkaline Phosphatase Total Creatine Kinase CK-MB (CK-2) Troponin T C-Reactive Protein Serum Total Protein Total Protein Albumin Fsyok-4-Qpcqpabio Pgnea-2-Ivunboinh PEP Interpretation Triglycerides LDL Cholesterol Direct HDL Cholesterol Free T4 PTH Intact Urine WBC (Auto) Urine Creatinine Salicylates Acetaminophen Crossmatch 04/18/19 04/18/19 04/18/19 06:17 12:16 18:10 WBC RBC Hgb Hct MCV MCH MCHC RDW Plt Count Lymph % (Auto) [place] % (Auto) Eos % (Auto) Lymph # Clarke # Eos # Seg Neutrophils % Seg Neuts % (Manual) Lymphocytes % (Manual) Monocytes % (Manual) Nucleated RBC % Seg Neutrophils # Seg Neutrophils # Man Lymphocytes # (Manual) Monocytes # (Manual) PT INR D-Dimer Heparin Anti-Xa Level POC ABG pH ABG pH POC ABG pCO2 POC ABG pO2 ABG pO2 ABG HCO3 ABG O2 Saturation ABG Base Excess ABG Hemoglobin Oxyhemoglobin Sodium Potassium Chloride Carbon Dioxide BUN Creatinine Glucose POC Glucose 124 H 119 H 111 H Lactic Acid Calcium Ionized Calcium Phosphorus Magnesium Iron TIBC Ferritin Total Bilirubin Direct Bilirubin AST ALT Alkaline Phosphatase Total Creatine Kinase CK-MB (CK-2) Troponin T C-Reactive Protein Serum Total Protein Total Protein Albumin Gllvx-6-Vwcktvkpw Ijbgg-3-Tajgvhqjh PEP Interpretation Triglycerides LDL Cholesterol Direct HDL Cholesterol Free T4 PTH Intact Urine WBC (Auto) Urine Creatinine Salicylates Acetaminophen Crossmatch 04/19/19 04/19/19 04/20/19 03:49 05:27 09:09 WBC RBC Hgb Hct MCV MCH MCHC RDW Plt Count Lymph % (Auto) [place] % (Auto) Eos % (Auto) Lymph # Clarke # Eos # Seg Neutrophils % Seg Neuts % (Manual) Lymphocytes % (Manual) Monocytes % (Manual) Nucleated RBC % Seg Neutrophils # Seg Neutrophils # Man Lymphocytes # (Manual) Monocytes # (Manual) PT INR D-Dimer Heparin Anti-Xa Level POC ABG pH ABG pH POC ABG pCO2 POC ABG pO2 ABG pO2 ABG HCO3 ABG O2 Saturation ABG Base Excess ABG Hemoglobin Oxyhemoglobin Sodium 147 H 150 H Potassium 3.3 L Chloride 108.9 H Carbon Dioxide BUN 45 H 70 H Creatinine 2.9 H 4.1 H Glucose 105 H POC Glucose 124 H Lactic Acid Calcium 10.6 H 11.6 H Ionized Calcium Phosphorus Magnesium Iron TIBC Ferritin Total Bilirubin Direct Bilirubin AST ALT Alkaline Phosphatase Total Creatine Kinase CK-MB (CK-2) Troponin T C-Reactive Protein Serum Total Protein Total Protein Albumin Geeqp-7-Dwwsafgnw Owthk-3-Pavqvzoof PEP Interpretation Triglycerides LDL Cholesterol Direct HDL Cholesterol Free T4 PTH Intact Urine WBC (Auto) Urine Creatinine Salicylates Acetaminophen Crossmatch 04/20/19 04/20/19 04/21/19 12:29 18:45 01:34 WBC RBC Hgb Hct MCV MCH MCHC RDW Plt Count Lymph % (Auto) [place] % (Auto) Eos % (Auto) Lymph # Clarke # Eos # Seg Neutrophils % Seg Neuts % (Manual) Lymphocytes % (Manual) Monocytes % (Manual) Nucleated RBC % Seg Neutrophils # Seg Neutrophils # Man Lymphocytes # (Manual) Monocytes # (Manual) PT INR D-Dimer Heparin Anti-Xa Level POC ABG pH ABG pH POC ABG pCO2 POC ABG pO2 ABG pO2 ABG HCO3 ABG O2 Saturation ABG Base Excess ABG Hemoglobin Oxyhemoglobin Sodium Potassium Chloride Carbon Dioxide BUN 40 H Creatinine 2.6 H Glucose 104 H POC Glucose 131 H 134 H Lactic Acid Calcium 11.0 H Ionized Calcium Phosphorus Magnesium Iron TIBC Ferritin Total Bilirubin Direct Bilirubin AST ALT Alkaline Phosphatase Total Creatine Kinase CK-MB (CK-2) Troponin T C-Reactive Protein Serum Total Protein Total Protein Albumin Ktvif-5-Urmoevhxt Usnvs-5-Hxtomadcc PEP Interpretation Triglycerides LDL Cholesterol Direct HDL Cholesterol Free T4 PTH Intact Urine WBC (Auto) Urine Creatinine Salicylates Acetaminophen Crossmatch 04/21/19 04/21/19 04/22/19 04:22 04:22 04:24 WBC 14.2 H 14.3 H RBC 3.02 L 3.57 L Hgb 8.7 L 10.1 L Hct 27.2 L 32.1 L MCV MCH MCHC RDW 16.7 H 17.2 H Plt Count Lymph % (Auto) [place] % (Auto) Eos % (Auto) Lymph # Clarke # Eos # Seg Neutrophils % Seg Neuts % (Manual) Lymphocytes % (Manual) Monocytes % (Manual) Nucleated RBC % Seg Neutrophils # Seg Neutrophils # Man Lymphocytes # (Manual) Monocytes # (Manual) PT INR D-Dimer Heparin Anti-Xa Level POC ABG pH ABG pH POC ABG pCO2 POC ABG pO2 ABG pO2 ABG HCO3 ABG O2 Saturation ABG Base Excess ABG Hemoglobin Oxyhemoglobin Sodium Potassium Chloride Carbon Dioxide BUN Creatinine Glucose POC Glucose Lactic Acid Calcium Ionized Calcium Phosphorus Magnesium Iron TIBC Ferritin Total Bilirubin Direct Bilirubin AST ALT Alkaline Phosphatase Total Creatine Kinase CK-MB (CK-2) Troponin T C-Reactive Protein Serum Total Protein 5.7 L Total Protein Albumin 2.3 L Uieto-1-Bkcstowep 0.5 H Ppfik-3-Kizueoykg 1.0 H PEP Interpretation see below H Triglycerides LDL Cholesterol Direct HDL Cholesterol Free T4 PTH Intact Urine WBC (Auto) Urine Creatinine Salicylates Acetaminophen Crossmatch 04/22/19 04/22/19 04/22/19 04:24 06:37 11:57 WBC RBC Hgb Hct MCV MCH MCHC RDW Plt Count Lymph % (Auto) [place] % (Auto) Eos % (Auto) Lymph # [place] # Eos # Seg Neutrophils % Seg Neuts % (Manual) Lymphocytes % (Manual) Monocytes % (Manual) Nucleated RBC % Seg Neutrophils # Seg Neutrophils # Man Lymphocytes # (Manual) Monocytes # (Manual) PT INR D-Dimer Heparin Anti-Xa Level POC ABG pH ABG pH POC ABG pCO2 POC ABG pO2 ABG pO2 ABG HCO3 ABG O2 Saturation ABG Base Excess ABG Hemoglobin Oxyhemoglobin Sodium Potassium Chloride Carbon Dioxide BUN 54 H Creatinine 3.5 H Glucose POC Glucose 113 H 110 H Lactic Acid Calcium 11.4 H Ionized Calcium Phosphorus Magnesium Iron TIBC Ferritin Total Bilirubin Direct Bilirubin AST ALT Alkaline Phosphatase Total Creatine Kinase CK-MB (CK-2) Troponin T C-Reactive Protein Serum Total Protein Total Protein Albumin Ojmmp-6-Qsftlvshx Eoojh-0-Umojnnauu PEP Interpretation Triglycerides LDL Cholesterol Direct HDL Cholesterol Free T4 PTH Intact Urine WBC (Auto) Urine Creatinine Salicylates Acetaminophen Crossmatch 04/22/19 04/23/19 04/23/19 18:33 04:06 04:06 WBC 16.1 H RBC 3.36 L Hgb 9.8 L Hct 30.8 L MCV MCH MCHC RDW 17.7 H Plt Count Lymph % (Auto) 9.9 L [place] % (Auto) Eos % (Auto) Lymph # Clarke # Eos # Seg Neutrophils % 84.2 H Seg Neuts % (Manual) Lymphocytes % (Manual) Monocytes % (Manual) Nucleated RBC % Seg Neutrophils # 13.6 H Seg Neutrophils # Man Lymphocytes # (Manual) Monocytes # (Manual) PT INR D-Dimer Heparin Anti-Xa Level POC ABG pH ABG pH POC ABG pCO2 POC ABG pO2 ABG pO2 ABG HCO3 ABG O2 Saturation ABG Base Excess ABG Hemoglobin Oxyhemoglobin Sodium Potassium Chloride Carbon Dioxide BUN 59 H Creatinine 3.8 H Glucose POC Glucose 120 H Lactic Acid Calcium 12.3 H* Ionized Calcium Phosphorus 5.70 H Magnesium Iron TIBC Ferritin Total Bilirubin Direct Bilirubin AST ALT Alkaline Phosphatase Total Creatine Kinase CK-MB (CK-2) Troponin T C-Reactive Protein Serum Total Protein Total Protein Albumin 3.2 L Nbfae-6-Qqxxsikdt Fmpmx-5-Nepixnrmx PEP Interpretation Triglycerides LDL Cholesterol Direct HDL Cholesterol Free T4 PTH Intact Urine WBC (Auto) Urine Creatinine Salicylates Acetaminophen Crossmatch 04/23/19 04/24/19 04/24/19 18:06 04:12 04:12 WBC 18.0 H RBC 3.46 L Hgb 9.8 L Hct 31.2 L MCV MCH MCHC 31 L RDW 17.5 H Plt Count Lymph % (Auto) 11.1 L [place] % (Auto) Eos % (Auto) Lymph # Clarke # Eos # Seg Neutrophils % 81.9 H Seg Neuts % (Manual) Lymphocytes % (Manual) Monocytes % (Manual) Nucleated RBC % Seg Neutrophils # 14.7 H Seg Neutrophils # Man Lymphocytes # (Manual) Monocytes # (Manual) PT INR D-Dimer Heparin Anti-Xa Level POC ABG pH ABG pH POC ABG pCO2 POC ABG pO2 ABG pO2 ABG HCO3 ABG O2 Saturation ABG Base Excess ABG Hemoglobin Oxyhemoglobin Sodium Potassium Chloride Carbon Dioxide BUN 56 H Creatinine 3.6 H Glucose POC Glucose 124 H Lactic Acid Calcium 12.6 H* Ionized Calcium Phosphorus Magnesium Iron TIBC Ferritin Total Bilirubin Direct Bilirubin AST ALT Alkaline Phosphatase Total Creatine Kinase CK-MB (CK-2) Troponin T C-Reactive Protein Serum Total Protein Total Protein Albumin 3.2 L Yfmsc-9-Thaakqvas Rppkg-1-Luhaqlnjs PEP Interpretation Triglycerides LDL Cholesterol Direct HDL Cholesterol Free T4 PTH Intact Urine WBC (Auto) Urine Creatinine Salicylates Acetaminophen Crossmatch 04/24/19 04/24/19 04/25/19 06:21 11:47 05:58 WBC 18.0 H RBC 2.98 L Hgb 8.3 L Hct 26.5 L MCV MCH MCHC 31 L RDW 17.9 H Plt Count Lymph % (Auto) 10.1 L [place] % (Auto) Eos % (Auto) Lymph # Clarke # 0.9 H Eos # Seg Neutrophils % 82.8 H Seg Neuts % (Manual) Lymphocytes % (Manual) Monocytes % (Manual) Nucleated RBC % Seg Neutrophils # 15.0 H Seg Neutrophils # Man Lymphocytes # (Manual) Monocytes # (Manual) PT INR D-Dimer Heparin Anti-Xa Level POC ABG pH ABG pH POC ABG pCO2 POC ABG pO2 ABG pO2 ABG HCO3 ABG O2 Saturation ABG Base Excess ABG Hemoglobin Oxyhemoglobin Sodium Potassium Chloride Carbon Dioxide BUN Creatinine Glucose POC Glucose 132 H 106 H Lactic Acid Calcium Ionized Calcium Phosphorus Magnesium Iron TIBC Ferritin Total Bilirubin Direct Bilirubin AST ALT Alkaline Phosphatase Total Creatine Kinase CK-MB (CK-2) Troponin T C-Reactive Protein Serum Total Protein Total Protein Albumin Cpkki-5-Xynugxdbs Guduv-4-Cujsvzxgg PEP Interpretation Triglycerides LDL Cholesterol Direct HDL Cholesterol Free T4 PTH Intact Urine WBC (Auto) Urine Creatinine Salicylates Acetaminophen Crossmatch 04/25/19 04/26/19 04/26/19 05:58 05:57 06:08 WBC RBC Hgb Hct MCV MCH MCHC RDW Plt Count Lymph % (Auto) [place] % (Auto) Eos % (Auto) Lymph # [place] # Eos # Seg Neutrophils % Seg Neuts % (Manual) Lymphocytes % (Manual) Monocytes % (Manual) Nucleated RBC % Seg Neutrophils # Seg Neutrophils # Man Lymphocytes # (Manual) Monocytes # (Manual) PT INR D-Dimer Heparin Anti-Xa Level POC ABG pH ABG pH POC ABG pCO2 POC ABG pO2 ABG pO2 ABG HCO3 ABG O2 Saturation ABG Base Excess ABG Hemoglobin Oxyhemoglobin Sodium Potassium 3.2 L Chloride Carbon Dioxide BUN 52 H 48 H Creatinine 3.2 H 2.9 H Glucose 108 H 112 H POC Glucose 109 H Lactic Acid Calcium 11.4 H 12.5 H* Ionized Calcium Phosphorus 5.90 H Magnesium Iron TIBC Ferritin Total Bilirubin Direct Bilirubin AST ALT Alkaline Phosphatase Total Creatine Kinase CK-MB (CK-2) Troponin T C-Reactive Protein Serum Total Protein Total Protein Albumin 3.0 L Otmtm-6-Zhkstisoo Wrdog-0-Fkkpjuhoj PEP Interpretation Triglycerides LDL Cholesterol Direct HDL Cholesterol Free T4 PTH Intact Urine WBC (Auto) Urine Creatinine Salicylates Acetaminophen Crossmatch 04/26/19 04/26/19 04/27/19 07:22 13:39 05:05 WBC 11.9 H RBC 3.01 L Hgb 8.6 L Hct 26.3 L MCV MCH MCHC RDW 17.6 H Plt Count Lymph % (Auto) 11.9 L [place] % (Auto) Eos % (Auto) Lymph # Clarke # Eos # Seg Neutrophils % 78.3 H Seg Neuts % (Manual) Lymphocytes % (Manual) Monocytes % (Manual) Nucleated RBC % Seg Neutrophils # 9.4 H Seg Neutrophils # Man Lymphocytes # (Manual) Monocytes # (Manual) PT INR D-Dimer Heparin Anti-Xa Level POC ABG pH ABG pH POC ABG pCO2 POC ABG pO2 ABG pO2 ABG HCO3 ABG O2 Saturation ABG Base Excess ABG Hemoglobin Oxyhemoglobin Sodium Potassium Chloride Carbon Dioxide BUN 46 H Creatinine 2.8 H Glucose POC Glucose Lactic Acid Calcium > 13.0 H* 12.2 H* Ionized Calcium Phosphorus Magnesium Iron TIBC Ferritin Total Bilirubin Direct Bilirubin AST ALT Alkaline Phosphatase Total Creatine Kinase CK-MB (CK-2) Troponin T C-Reactive Protein Serum Total Protein Total Protein Albumin Gmvtt-5-Jbobyfmrb Wjcmi-0-Qkwykworx PEP Interpretation Triglycerides LDL Cholesterol Direct HDL Cholesterol Free T4 PTH Intact Urine WBC (Auto) Urine Creatinine Salicylates Acetaminophen Crossmatch 04/27/19 04/28/19 04/29/19 05:05 05:17 14:14 WBC RBC Hgb Hct MCV MCH MCHC RDW Plt Count Lymph % (Auto) Clarke % (Auto) Eos % (Auto) Lymph # Clarke # Eos # Seg Neutrophils % Seg Neuts % (Manual) Lymphocytes % (Manual) Monocytes % (Manual) Nucleated RBC % Seg Neutrophils # Seg Neutrophils # Man Lymphocytes # (Manual) Monocytes # (Manual) PT INR D-Dimer Heparin Anti-Xa Level POC ABG pH ABG pH POC ABG pCO2 POC ABG pO2 ABG pO2 ABG HCO3 ABG O2 Saturation ABG Base Excess ABG Hemoglobin Oxyhemoglobin Sodium 136 L Potassium 3.2 L 3.4 L Chloride Carbon Dioxide BUN 40 H 34 H 33 H Creatinine 2.5 H 2.0 H 1.9 H Glucose 113 H 107 H POC Glucose Lactic Acid Calcium 12.3 H* 12.1 H* 11.5 H Ionized Calcium Phosphorus Magnesium Iron TIBC Ferritin Total Bilirubin Direct Bilirubin AST ALT Alkaline Phosphatase Total Creatine Kinase CK-MB (CK-2) Troponin T C-Reactive Protein Serum Total Protein Total Protein 6.2 L Albumin 2.8 L Kusok-9-Hnnftaxvp Tjppz-5-Abqlrvter PEP Interpretation Triglycerides LDL Cholesterol Direct HDL Cholesterol Free T4 PTH Intact Urine WBC (Auto) Urine Creatinine Salicylates Acetaminophen Crossmatch 04/29/19 04/29/19 04/30/19 14:14 14:14 06:47 WBC RBC Hgb Hct MCV MCH MCHC RDW Plt Count Lymph % (Auto) Clarke % (Auto) Eos % (Auto) Lymph # Clarke # Eos # Seg Neutrophils % Seg Neuts % (Manual) Lymphocytes % (Manual) Monocytes % (Manual) Nucleated RBC % Seg Neutrophils # Seg Neutrophils # Man Lymphocytes # (Manual) Monocytes # (Manual) PT INR D-Dimer Heparin Anti-Xa Level POC ABG pH ABG pH POC ABG pCO2 POC ABG pO2 ABG pO2 ABG HCO3 ABG O2 Saturation ABG Base Excess ABG Hemoglobin Oxyhemoglobin Sodium Potassium 3.2 L Chloride Carbon Dioxide 21 L BUN 26 H Creatinine 1.8 H Glucose POC Glucose Lactic Acid Calcium 10.8 H Ionized Calcium 7.2 H* Phosphorus Magnesium Iron TIBC Ferritin Total Bilirubin Direct Bilirubin AST ALT Alkaline Phosphatase Total Creatine Kinase CK-MB (CK-2) Troponin T C-Reactive Protein Serum Total Protein Total Protein Albumin Osvct-9-Prhdubwci Mojyw-4-Coggudecj PEP Interpretation Triglycerides LDL Cholesterol Direct HDL Cholesterol Free T4 PTH Intact 8.83 L Urine WBC (Auto) Urine Creatinine Salicylates Acetaminophen Crossmatch 04/30/19 05/01/19 05/01/19 12:17 06:52 06:52 WBC 15.4 H RBC 3.01 L Hgb 8.4 L Hct 26.2 L MCV MCH MCHC RDW 17.0 H Plt Count Lymph % (Auto) 8.4 L Clarke % (Auto) 8.9 H Eos % (Auto) Lymph # Clarke # 1.4 H Eos # 0.5 H Seg Neutrophils % 78.7 H Seg Neuts % (Manual) Lymphocytes % (Manual) Monocytes % (Manual) Nucleated RBC % Seg Neutrophils # 12.1 H Seg Neutrophils # Man Lymphocytes # (Manual) Monocytes # (Manual) PT INR D-Dimer Heparin Anti-Xa Level POC ABG pH ABG pH POC ABG pCO2 POC ABG pO2 ABG pO2 ABG HCO3 ABG O2 Saturation ABG Base Excess ABG Hemoglobin Oxyhemoglobin Sodium Potassium 3.0 L Chloride Carbon Dioxide BUN 22 H Creatinine Glucose POC Glucose 106 H Lactic Acid Calcium 11.2 H Ionized Calcium Phosphorus Magnesium Iron TIBC Ferritin Total Bilirubin Direct Bilirubin AST ALT Alkaline Phosphatase Total Creatine Kinase CK-MB (CK-2) Troponin T C-Reactive Protein Serum Total Protein Total Protein Albumin 3.0 L Tbwno-1-Nzrvobmvm Fbzqx-4-Dhjturkpg PEP Interpretation Triglycerides LDL Cholesterol Direct HDL Cholesterol Free T4 PTH Intact Urine WBC (Auto) Urine Creatinine Salicylates Acetaminophen Crossmatch 05/01/19 05/01/19 05/02/19 06:52 18:40 05:32 WBC RBC Hgb Hct MCV MCH MCHC RDW Plt Count Lymph % (Auto) Clarke % (Auto) Eos % (Auto) Lymph # Clarke # Eos # Seg Neutrophils % Seg Neuts % (Manual) Lymphocytes % (Manual) Monocytes % (Manual) Nucleated RBC % Seg Neutrophils # Seg Neutrophils # Man Lymphocytes # (Manual) Monocytes # (Manual) PT INR D-Dimer Heparin Anti-Xa Level POC ABG pH ABG pH POC ABG pCO2 POC ABG pO2 ABG pO2 ABG HCO3 ABG O2 Saturation ABG Base Excess ABG Hemoglobin Oxyhemoglobin Sodium Potassium Chloride Carbon Dioxide BUN Creatinine Glucose POC Glucose 169 H 109 H Lactic Acid Calcium Ionized Calcium Phosphorus Magnesium Iron TIBC Ferritin Total Bilirubin Direct Bilirubin AST ALT Alkaline Phosphatase Total Creatine Kinase CK-MB (CK-2) Troponin T C-Reactive Protein Serum Total Protein 5.7 L Total Protein Albumin 2.5 L Cjqnn-3-Jyrdnvznc 0.5 H Rfxcs-8-Qtokhnccw PEP Interpretation see below H Triglycerides LDL Cholesterol Direct HDL Cholesterol Free T4 PTH Intact Urine WBC (Auto) Urine Creatinine Salicylates Acetaminophen Crossmatch 05/02/19 05/02/19 05/02/19 05:57 05:57 11:43 WBC 14.2 H RBC 2.96 L Hgb 8.3 L Hct 26.0 L MCV MCH MCHC RDW 16.8 H Plt Count Lymph % (Auto) Clarke % (Auto) Eos % (Auto) Lymph # Clarke # Eos # Seg Neutrophils % Seg Neuts % (Manual) Lymphocytes % (Manual) Monocytes % (Manual) Nucleated RBC % Seg Neutrophils # Seg Neutrophils # Man Lymphocytes # (Manual) Monocytes # (Manual) PT INR D-Dimer Heparin Anti-Xa Level POC ABG pH ABG pH POC ABG pCO2 POC ABG pO2 ABG pO2 ABG HCO3 ABG O2 Saturation ABG Base Excess ABG Hemoglobin Oxyhemoglobin Sodium 136 L Potassium 3.5 L Chloride Carbon Dioxide BUN 21 H Creatinine Glucose POC Glucose 108 H Lactic Acid Calcium 11.1 H Ionized Calcium Phosphorus Magnesium Iron TIBC Ferritin Total Bilirubin Direct Bilirubin AST ALT Alkaline Phosphatase Total Creatine Kinase CK-MB (CK-2) Troponin T C-Reactive Protein Serum Total Protein Total Protein Albumin Xlsti-5-Idadpdhop Chvjz-0-Rshpyblmm PEP Interpretation Triglycerides LDL Cholesterol Direct HDL Cholesterol Free T4 PTH Intact Urine WBC (Auto) Urine Creatinine Salicylates Acetaminophen Crossmatch 11/07/19 11/07/19 11/08/19 05:37 05:37 06:49 WBC 12.7 H 11.1 H RBC 3.01 L 3.07 L Hgb 8.3 L 8.6 L Hct 26.1 L 26.6 L MCV MCH MCHC RDW 16.9 H 17.3 H Plt Count Lymph % (Auto) Clarke % (Auto) 9.0 H Eos % (Auto) 4.9 H Lymph # Clarke # 1.0 H Eos # 0.5 H Seg Neutrophils % Seg Neuts % (Manual) Lymphocytes % (Manual) Monocytes % (Manual) Nucleated RBC % Seg Neutrophils # 7.8 H Seg Neutrophils # Man Lymphocytes # (Manual) Monocytes # (Manual) PT INR D-Dimer Heparin Anti-Xa Level POC ABG pH ABG pH POC ABG pCO2 POC ABG pO2 ABG pO2 ABG HCO3 ABG O2 Saturation ABG Base Excess ABG Hemoglobin Oxyhemoglobin Sodium 135 L Potassium 3.3 L Chloride Carbon Dioxide BUN Creatinine Glucose POC Glucose Lactic Acid Calcium 10.9 H Ionized Calcium Phosphorus Magnesium 1.50 L Iron TIBC Ferritin Total Bilirubin Direct Bilirubin AST ALT Alkaline Phosphatase Total Creatine Kinase CK-MB (CK-2) Troponin T C-Reactive Protein Serum Total Protein Total Protein Albumin Qsizk-9-Bmuygoxcl Yccyl-2-Bnrvvseti PEP Interpretation Triglycerides LDL Cholesterol Direct HDL Cholesterol Free T4 PTH Intact Urine WBC (Auto) Urine Creatinine Salicylates Acetaminophen Crossmatch 05/04/19 05/04/19 05/04/19 06:49 06:49 11:58 WBC RBC Hgb Hct MCV MCH MCHC RDW Plt Count Lymph % (Auto) Clarke % (Auto) Eos % (Auto) Lymph # Clarke # Eos # Seg Neutrophils % Seg Neuts % (Manual) Lymphocytes % (Manual) Monocytes % (Manual) Nucleated RBC % Seg Neutrophils # Seg Neutrophils # Man Lymphocytes # (Manual) Monocytes # (Manual) PT 15.5 H INR 1.24 H D-Dimer Heparin Anti-Xa Level POC ABG pH ABG pH POC ABG pCO2 POC ABG pO2 ABG pO2 ABG HCO3 ABG O2 Saturation ABG Base Excess ABG Hemoglobin Oxyhemoglobin Sodium Potassium Chloride Carbon Dioxide 19 L BUN Creatinine Glucose POC Glucose 111 H Lactic Acid Calcium 10.7 H Ionized Calcium Phosphorus Magnesium Iron TIBC Ferritin Total Bilirubin Direct Bilirubin AST ALT Alkaline Phosphatase Total Creatine Kinase CK-MB (CK-2) Troponin T C-Reactive Protein Serum Total Protein Total Protein Albumin Kncmy-7-Nmfddyjrm Qykrz-0-Ywxlpczdc PEP Interpretation Triglycerides LDL Cholesterol Direct HDL Cholesterol Free T4 PTH Intact Urine WBC (Auto) Urine Creatinine Salicylates Acetaminophen Crossmatch 05/05/19 05/05/19 05/07/19 06:14 06:14 05:55 WBC 11.5 H 12.0 H RBC 3.08 L 3.33 L Hgb 8.5 L 9.2 L Hct 26.5 L 28.5 L MCV MCH MCHC RDW 17.1 H 17.6 H Plt Count Lymph % (Auto) Clarke % (Auto) Eos % (Auto) 8.2 H Lymph # Clarke # Eos # 1.0 H Seg Neutrophils % Seg Neuts % (Manual) Lymphocytes % (Manual) Monocytes % (Manual) Nucleated RBC % Seg Neutrophils # 8.2 H Seg Neutrophils # Man Lymphocytes # (Manual) Monocytes # (Manual) PT INR D-Dimer Heparin Anti-Xa Level POC ABG pH ABG pH POC ABG pCO2 POC ABG pO2 ABG pO2 ABG HCO3 ABG O2 Saturation ABG Base Excess ABG Hemoglobin Oxyhemoglobin Sodium 136 L Potassium Chloride Carbon Dioxide 21 L BUN Creatinine Glucose POC Glucose Lactic Acid Calcium 10.3 H Ionized Calcium Phosphorus Magnesium Iron TIBC Ferritin Total Bilirubin Direct Bilirubin AST ALT Alkaline Phosphatase Total Creatine Kinase CK-MB (CK-2) Troponin T C-Reactive Protein Serum Total Protein Total Protein Albumin Prsvv-7-Brzdhqldg Wdxrw-8-Yxxzkttni PEP Interpretation Triglycerides LDL Cholesterol Direct HDL Cholesterol Free T4 PTH Intact Urine WBC (Auto) Urine Creatinine Salicylates Acetaminophen Crossmatch 05/07/19 05/08/19 05/08/19 05:55 07:27 07:27 WBC 12.5 H RBC 3.50 L Hgb 9.4 L Hct 30.4 L MCV MCH 27 L MCHC 31 L RDW 17.2 H Plt Count Lymph % (Auto) Clarke % (Auto) Eos % (Auto) 10.3 H Lymph # Clarke # Eos # 1.3 H Seg Neutrophils % Seg Neuts % (Manual) Lymphocytes % (Manual) Monocytes % (Manual) Nucleated RBC % Seg Neutrophils # 8.7 H Seg Neutrophils # Man Lymphocytes # (Manual) Monocytes # (Manual) PT INR D-Dimer Heparin Anti-Xa Level POC ABG pH ABG pH POC ABG pCO2 POC ABG pO2 ABG pO2 ABG HCO3 ABG O2 Saturation ABG Base Excess ABG Hemoglobin Oxyhemoglobin Sodium Potassium 3.5 L Chloride Carbon Dioxide 20 L 20 L BUN Creatinine Glucose POC Glucose Lactic Acid Calcium 10.7 H 10.7 H Ionized Calcium Phosphorus Magnesium Iron TIBC Ferritin Total Bilirubin Direct Bilirubin AST ALT Alkaline Phosphatase Total Creatine Kinase CK-MB (CK-2) Troponin T C-Reactive Protein Serum Total Protein Total Protein Albumin 3.2 L 3.4 L Mqczs-9-Taxaycrlq Ulugy-3-Xqzjkwmrt PEP Interpretation Triglycerides LDL Cholesterol Direct HDL Cholesterol Free T4 PTH Intact Urine WBC (Auto) Urine Creatinine Salicylates Acetaminophen Crossmatch 05/09/19 05/09/19 05/10/19 05:41 05:41 06:42 WBC 11.7 H RBC 3.27 L Hgb 9.2 L Hct 27.9 L MCV MCH MCHC RDW 17.8 H Plt Count Lymph % (Auto) Clarke % (Auto) Eos % (Auto) 14.3 H Lymph # Clarke # Eos # 1.7 H Seg Neutrophils % Seg Neuts % (Manual) Lymphocytes % (Manual) Monocytes % (Manual) Nucleated RBC % Seg Neutrophils # Seg Neutrophils # Man Lymphocytes # (Manual) Monocytes # (Manual) PT INR 1.17 H D-Dimer Heparin Anti-Xa Level POC ABG pH ABG pH POC ABG pCO2 POC ABG pO2 ABG pO2 ABG HCO3 ABG O2 Saturation ABG Base Excess ABG Hemoglobin Oxyhemoglobin Sodium 136 L Potassium Chloride Carbon Dioxide 21 L BUN Creatinine Glucose POC Glucose Lactic Acid Calcium 10.6 H Ionized Calcium Phosphorus Magnesium Iron TIBC Ferritin Total Bilirubin Direct Bilirubin AST ALT Alkaline Phosphatase Total Creatine Kinase CK-MB (CK-2) Troponin T C-Reactive Protein Serum Total Protein Total Protein Albumin 3.3 L Bggds-7-Uvxjjdvar Xvoyy-1-Srrjuupfq PEP Interpretation Triglycerides LDL Cholesterol Direct HDL Cholesterol Free T4 PTH Intact Urine WBC (Auto) Urine Creatinine Salicylates Acetaminophen Crossmatch 05/10/19 06:42 WBC RBC Hgb Hct MCV MCH MCHC RDW Plt Count Lymph % (Auto) Clarke % (Auto) Eos % (Auto) Lymph # Clarke # Eos # Seg Neutrophils % Seg Neuts % (Manual) Lymphocytes % (Manual) Monocytes % (Manual) Nucleated RBC % Seg Neutrophils # Seg Neutrophils # Man Lymphocytes # (Manual) Monocytes # (Manual) PT INR D-Dimer Heparin Anti-Xa Level POC ABG pH ABG pH POC ABG pCO2 POC ABG pO2 ABG pO2 ABG HCO3 ABG O2 Saturation ABG Base Excess ABG Hemoglobin Oxyhemoglobin Sodium Potassium Chloride Carbon Dioxide 21 L BUN Creatinine Glucose POC Glucose Lactic Acid Calcium Ionized Calcium Phosphorus Magnesium Iron TIBC Ferritin Total Bilirubin Direct Bilirubin AST ALT Alkaline Phosphatase Total Creatine Kinase CK-MB (CK-2) Troponin T C-Reactive Protein Serum Total Protein Total Protein Albumin Fwbwz-6-Tpyvvnsjs Wryyu-0-Qjvlzrvud PEP Interpretation Triglycerides LDL Cholesterol Direct HDL Cholesterol Free T4 PTH Intact Urine WBC (Auto) Urine Creatinine Salicylates Acetaminophen Crossmatch Allied health notes reviewed: nursing
[2019-05-11 05:17] LABS: Calcium 9.9 mg/dL (8.4-10.2)
[2019-05-11] MEDS: SODIUM CHLORIDE 0.9% 500 ML 500 ML IV SCH (06:55)
[2019-05-11] MEDS: HYDROcodone/ACETAMINOPHEN 5-325 MG TAB PO PRN ×3 (08:02→21:14)
[2019-05-11] MEDS: METOPROLOL SUCCINATE XL 50 MG TAB PO SCH (09:48)
[2019-05-11] MEDS: PANTOPRAZOLE 40 MG TAB PO SCH ×2 (09:49→21:10)
--- NOTE | 2019-05-11 12:26 | Progress Note ---
Assessment and Plan Assessment and plan: ? Peripheral neuropathy. Patient requesting neurology evaluation. Start gabapentin. Bilateral lower extremity DVTs. Patient will be scheduled for placement of IVC filter. 3 months after discharge, the patient will need to be scheduled for IVC filter removal with repeat ultrasound at that time to evaluate the patient's bilateral lower extremity DVTs. - Acute hypoxic respiratory failure. Was intubated, but now extubated. Now on Room air. Continue BiPAP as clinically indicated. - Atrial fibrillation. Resolved. Continue Metoprolol. Cardiology following. No recurrence of AFib or VT noted for several weeks since resolution of multiple metabolic derangements and thus no plans for initiation of systemic AC or AICD implantation at this time. - Abnormal Lexiscan stress with ejection fraction of 45% S/p LHC this AM which showed normal coronaries, normal EF. - Acute blood loss anemia. Patient with GI bleed secondary to peptic ulcer disease. EGD completed per GI. Continue PRBCs as needed. - GI bleed/peptic ulcer disease. Continue PPI. Transfuse PRBCs as needed. - Sepsis/septic shock. Resolved. Continue to monitor off antibiotics - Ischemic hepatitis/shock liver. Resolved. Viral hepatitis panel negative. - Acute kidney injury. Resolved. Patient's last hemodialysis 04/20/19. Continue to monitor BMP. Avoid nephrotoxic agents. - Toxic metabolic encephalopathy. Resolved. - Swelling both upper ext L>R Doppler US : no DVT LUE - Hypokalemia. Replete potassium as needed. - Thrombocytopenia. Etiology likely secondary to sepsis. Resolved. - Rhabdomyolysis. CK normalized. Full code status Disposition. Awaiting for arrangements for SNF in [place] History Interval history: Patient complaining of bilateral lower extremity numbness. Hospitalist Physical - Constitutional Vitals: Temp Pulse Resp BP Pulse Ox 98.5 F 87 18 105/59 95 05/11/19 11:24 05/11/19 11:24 05/11/19 11:24 05/11/19 11:24 05/11/19 11:24 General appearance: Present: no acute distress - EENT Eyes: Present: PERRL, EOM intact ENT: hearing intact, clear oral mucosa, dentition normal - Neck Neck: Present: supple, normal ROM - Respiratory Respiratory effort: normal Respiratory: bilateral: CTA - Cardiovascular Rhythm: regular Heart Sounds: Present: S1 & S2. Absent: gallop, rub - Extremities Extremities: no ischemia, No edema, Full ROM - Abdominal General gastrointestinal: soft, non-tender, non-distended, normal bowel sounds - Integumentary Integumentary: Present: clear, warm, dry - Neurologic Neurologic: CNII-XII intact, moves all extremities Results - Labs CBC & Chem 7: 05/09/19 05:41 05/11/19 04:40 Labs: Laboratory Last Values WBC 11.7 K/mm3 (4.5-11.0) H 05/09/19 05:41 RBC 3.27 M/mm3 (3.65-5.03) L 05/09/19 05:41 Hgb 9.2 gm/dl (11.8-15.2) L 05/09/19 05:41 Hct 27.9 % (35.5-45.6) L 05/09/19 05:41 MCV 86 fl (84-94) 05/09/19 05:41 MCH 28 pg (28-32) 05/09/19 05:41 MCHC 33 % (32-34) 05/09/19 05:41 RDW 17.8 % (13.2-15.2) H 05/09/19 05:41 Plt Count 305 K/mm3 (140-440) 05/09/19 05:41 Lymph % (Auto) 17.9 % (13.4-35.0) 05/09/19 05:41 Dougherty % (Auto) 5.6 % (0.0-7.3) 05/09/19 05:41 Eos % (Auto) 14.3 % (0.0-4.3) H 05/09/19 05:41 Baso % (Auto) 0.7 % (0.0-1.8) 05/09/19 05:41 Lymph # 2.1 K/mm3 (1.2-5.4) 05/09/19 05:41 Dougherty # 0.7 K/mm3 (0.0-0.8) 05/09/19 05:41 Eos # 1.7 K/mm3 (0.0-0.4) H 05/09/19 05:41 Baso # 0.1 K/mm3 (0.0-0.1) 05/09/19 05:41 Add Manual Diff Complete 04/11/19 04:16 Total Counted 100 04/11/19 04:16 Seg Neutrophils % 61.5 % (40.0-70.0) 05/09/19 05:41 Seg Neuts % (Manual) 71.0 % (40.0-70.0) H 04/11/19 04:16 Band Neutrophils % 1.0 % 04/11/19 04:16 Lymphocytes % (Manual) 17.0 % (13.4-35.0) 04/11/19 04:16 Reactive Lymphs % (Man) 0 % 04/11/19 04:16 Monocytes % (Manual) 8.0 % (0.0-7.3) H 04/11/19 04:16 Eosinophils % (Manual) 2.0 % (0.0-4.3) 04/11/19 04:16 Basophils % (Manual) 1.0 % (0.0-1.8) 04/11/19 04:16 Metamyelocytes % 0 % 04/11/19 04:16 Myelocytes % 0 % 04/11/19 04:16 Promyelocytes % 0 % 04/11/19 04:16 Blast Cells % 0 % 04/11/19 04:16 Nucleated RBC % Not Reportable 04/11/19 04:16 Seg Neutrophils # 7.2 K/mm3 (1.8-7.7) 05/09/19 05:41 Seg Neutrophils # Man 8.2 K/mm3 (1.8-7.7) H 04/11/19 04:16 Band Neutrophils # 0.1 K/mm3 04/11/19 04:16 Lymphocytes # (Manual) 2.0 K/mm3 (1.2-5.4) 04/11/19 04:16 Abs React Lymphs (Man) 0.0 K/mm3 04/11/19 04:16 Monocytes # (Manual) 0.9 K/mm3 (0.0-0.8) H 04/11/19 04:16 Eosinophils # (Manual) 0.2 K/mm3 (0.0-0.4) 04/11/19 04:16 Basophils # (Manual) 0.1 K/mm3 (0.0-0.1) 04/11/19 04:16 Metamyelocytes # 0.0 K/mm3 04/11/19 04:16 Myelocytes # 0.0 K/mm3 04/11/19 04:16 Promyelocytes # 0.0 K/mm3 04/11/19 04:16 Blast Cells # 0.0 K/mm3 04/11/19 04:16 WBC Morphology Not Reportable 04/11/19 04:16 Hypersegmented Neuts Not Reportable 04/11/19 04:16 Hyposegmented Neuts Not Reportable 04/11/19 04:16 Hypogranular Neuts Not Reportable 04/11/19 04:16 Smudge Cells Not Reportable 04/11/19 04:16 Toxic Granulation Not Reportable 04/11/19 04:16 Toxic Vacuolation Not Reportable 04/11/19 04:16 Dohle Bodies Not Reportable 04/11/19 04:16 Pelger-Huet Anomaly Not Reportable 04/11/19 04:16 Joyce Rods Not Reportable 04/11/19 04:16 Platelet Estimate Consistent w auto 04/11/19 04:16 Clumped Platelets Not Reportable 04/11/19 04:16 Plt Clumps, EDTA Not Reportable 04/11/19 04:16 Large Platelets Not Reportable 04/11/19 04:16 Giant Platelets Not Reportable 04/11/19 04:16 Platelet Satelliting Not Reportable 04/11/19 04:16 Plt Morphology Comment Not Reportable 04/11/19 04:16 RBC Morphology Not Reportable 04/11/19 04:16 Dimorphic RBCs Not Reportable 04/11/19 04:16 Polychromasia Not Reportable 04/11/19 04:16 Hypochromasia Not Reportable 04/11/19 04:16 Poikilocytosis Not Reportable 04/11/19 04:16 Anisocytosis Rare 04/11/19 04:16 Microcytosis Rare 04/11/19 04:16 Macrocytosis Not Reportable 04/11/19 04:16 Spherocytes Not Reportable 04/11/19 04:16 Pappenheimer Bodies Not Reportable 04/11/19 04:16 Sickle Cells Not Reportable 04/11/19 04:16 Target Cells Not Reportable 04/11/19 04:16 Tear Drop Cells Not Reportable 04/11/19 04:16 Ovalocytes Not Reportable 04/11/19 04:16 Stomatocytes Few 03/26/19 Unknown Helmet Cells Not Reportable 04/11/19 04:16 Shrestha-Elcho Bodies Not Reportable 04/11/19 04:16 Cory Rings Not Reportable 04/11/19 04:16 Samantha Cells Not Reportable 04/11/19 04:16 Bite Cells Not Reportable 04/11/19 04:16 Crenated Cell Not Reportable 04/11/19 04:16 Elliptocytes Not Reportable 04/11/19 04:16 Acanthocytes (Spur) Not Reportable 04/11/19 04:16 Rouleaux Not Reportable 04/11/19 04:16 Hemoglobin C Crystals Not Reportable 04/11/19 04:16 Schistocytes Not Reportable 04/11/19 04:16 Malaria parasites Not Reportable 04/11/19 04:16 Phil Bodies Not Reportable 04/11/19 04:16 Hem Pathologist Commnt No 04/11/19 04:16 PT 14.8 Sec. (12.2-14.9) 05/10/19 06:42 INR 1.17 (0.87-1.13) H 05/10/19 06:42 APTT 27.9 Sec. (24.2-36.6) 05/10/19 06:42 Fibrinogen 226 mg/dl (211-480) 03/28/19 12:00 D-Dimer 4845.98 ng/mlDDU (0-234) H 03/28/19 12:00 Heparin Anti-Xa Level 0.23 U.I./ml (0.3-0.7) L 03/28/19 05:13 POC ABG pH 7.401 (7.35-7.45) 04/07/19 12:57 ABG pH 7.388 pH Units (7.350-7.450) 04/06/19 05:20 POC ABG pCO2 41.5 (35-45) 04/07/19 12:57 ABG pCO2 38.5 mm Hg 04/06/19 05:20 POC ABG pO2 107 (80-105) H 04/07/19 12:57 ABG pO2 104.0 mm Hg (80.0-90.0) H 04/06/19 05:20 POC ABG HCO3 25.7 (22-26 mml/L) 04/07/19 12:57 ABG HCO3 22.6 mmol/L (20.0-26.0) 04/06/19 05:20 POC ABG Total CO2 27 (23-27mmol/L) 04/07/19 12:57 POC ABG O2 Sat 98 04/07/19 12:57 ABG O2 Saturation 97.8 % (95.0-99.0) 04/06/19 05:20 ABG O2 Content 10.0 (0.0-44) 04/06/19 05:20 POC ABG Base Excess 1 ((-2) - (+3)mmol/L) 04/07/19 12:57 ABG Base Excess -2.1 mmol/L (-2.0-3.0) L 04/06/19 05:20 ABG Hemoglobin 7.3 gm/dl (14.0-18.0) L 04/06/19 05:20 ABG Carboxyhemoglobin 1.7 % (0.0-5.0) 04/06/19 05:20 ABG Methemoglobin 0.6 % (0.0-1.5) 04/06/19 05:20 Oxyhemoglobin 95.5 % (95.0-99.0) 04/06/19 05:20 FiO2 30 % 04/07/19 12:57 Sodium 137 mmol/L (137-145) 05/11/19 04:40 Potassium 3.7 mmol/L (3.6-5.0) 05/11/19 04:40 Chloride 103.4 mmol/L (98-107) 05/11/19 04:40 Carbon Dioxide 20 mmol/L (22-30) L 05/11/19 04:40 Anion Gap 17 mmol/L 05/11/19 04:40 BUN 15 mg/dL (9-20) 05/11/19 04:40 Creatinine 1.4 mg/dL (0.8-1.5) 05/11/19 04:40 Estimated GFR 55 ml/min 05/11/19 04:40 BUN/Creatinine Ratio 11 % 05/11/19 04:40 Glucose 88 mg/dL (75-100) 05/11/19 04:40 POC Glucose 86 (70-105) 05/11/19 02:24 Lactic Acid 1.90 mmol/L (0.7-2.0) 03/21/19 21:31 Calcium 9.9 mg/dL (8.4-10.2) 05/11/19 04:40 Ionized Calcium 7.2 mg/dL (4.8-5.6) H* 04/29/19 14:14 Phosphorus 2.80 mg/dL (2.5-4.5) 05/03/19 05:37 Magnesium 2.20 mg/dL (1.7-2.3) 05/04/19 06:49 Iron 26 ug/dL (49-181) L 04/02/19 05:03 TIBC 138 mcg/dL (250-450) L 04/02/19 05:03 Ferritin 607.0 ng/mL (13.0-400.0) H 04/02/19 05:03 Total Bilirubin 0.30 mg/dL (0.1-1.2) 05/09/19 05:41 Direct Bilirubin 0.4 mg/dL (0-0.2) H 03/31/19 08:20 Indirect Bilirubin 0.1 mg/dL 03/31/19 08:20 AST 13 units/L (5-40) 05/09/19 05:41 ALT 14 units/L (7-56) 05/09/19 05:41 Alkaline Phosphatase 70 units/L (35-129) 05/09/19 05:41 Total Creatine Kinase 62 units/L (55-170) 04/07/19 05:40 CK-MB (CK-2) 54.3 ng/mL (0.0-4.0) H 03/17/19 07:16 CK-MB (CK-2) Rel Index 0.0 (0-4) 03/17/19 07:16 Troponin T 0.058 ng/mL (0.00-0.029) H 03/17/19 07:16 C-Reactive Protein 7.10 mg/dL (0.00-1.30) H 04/17/19 04:15 Serum Total Protein 5.7 g/dL (6.1-8.1) L 05/01/19 06:52 Total Protein 6.8 g/dL (6.3-8.2) 05/09/19 05:41 Albumin 3.3 g/dL (3.9-5) L 05/09/19 05:41 Albumin/Globulin Ratio 0.9 % 05/09/19 05:41 Ftrpt-8-Vwmghlecz 0.5 g/dL (0.2-0.3) H 05/01/19 06:52 Okujs-7-Tennfuvqx 0.9 g/dL (0.5-0.9) 05/01/19 06:52 Beta Globulins 0.4 g/dL (0.2-0.5) 05/01/19 06:52 Gamma Globulins 1.0 g/dL (0.8-1.7) 05/01/19 06:52 Abnorm Protein Band 1 see below 05/01/19 06:52 PEP Interpretation see below H 05/01/19 06:52 Triglycerides 309 mg/dL (2-149) H 03/29/19 06:22 Cholesterol 88 mg/dL (50-199) 03/16/19 22:32 LDL Cholesterol Direct 10 mg/dL (50-130) L 03/16/19 22:32 HDL Cholesterol 7 mg/dL (40-59) L 03/16/19 22:32 Cholesterol/HDL Ratio 12.57 % 03/16/19 22:32 Vitamin B12 903.0 pg/mL (211-911) 04/02/19 05:03 25-OH Vitamin D Total See scanned result 04/29/19 14:14 25-Hydroxy Vitamin D2 <4 ng/mL 04/29/19 14:14 1,25 Dihydroxy Vit D2 <8 pg/mL 04/29/19 14:14 25-Hydroxy Vitamin D3 11 ng/mL 04/29/19 14:14 1,25 Dihydroxy Vit D3 <8 pg/mL 04/29/19 14:14 Folate 8.05 ng/mL (7.3-26.0) 04/02/19 05:03 Procalcitonin 25.42 ng/mL (<0.15) 03/27/19 19:21 TSH 2.200 mlU/mL (0.270-4.200) 03/16/19 17:05 Free T4 0.72 ng/dL (0.76-1.46) L 03/16/19 17:05 PTH Intact 8.83 pg/mL (15-65) L 04/29/19 14:14 Urine Color Yellow (Yellow) 04/15/19 22:11 Urine Turbidity Clear (Clear) 04/15/19 22:11 Urine pH 6.0 (5.0-7.0) 04/15/19 22:11 Ur Specific [place] 1.010 (1.003-1.030) 04/15/19 22:11 Urine Protein 30 mg/dl mg/dL (Negative) 04/15/19 22:11 Urine Glucose (UA) Neg mg/dL (Negative) 04/15/19 22:11 Urine Ketones Neg mg/dL (Negative) 04/15/19 22:11 Urine Blood Mod (Negative) 04/15/19 22:11 Urine Nitrite Neg (Negative) 04/15/19 22:11 Urine Bilirubin Neg (Negative) 04/15/19 22:11 Urine Urobilinogen < 2.0 mg/dL (<2.0) 04/15/19 22:11 Ur Leukocyte Esterase Neg (Negative) 04/15/19 22:11 Urine WBC (Auto) 4.0 /HPF (0.0-6.0) 04/15/19 22:11 Urine RBC (Auto) 2.0 /HPF (0.0-6.0) 04/15/19 22:11 U Epithel Cells (Auto) < 1.0 /HPF (0-13.0) 04/15/19 22:11 Amorphous Crystals 1+ 04/05/19 16:50 Urine Mucus Few /HPF 03/17/19 16:05 Urine Sperm 2+ /HPF (PURCHASING [employer]ING CLERK) 03/17/19 16:05 Urine Eosinophils None seen (None Seen) 03/17/19 16:05 Ur Random Creatinine See scanned result 05/01/19 06:15 U Random Total Protein See scanned result 05/01/19 06:15 Urine Creatinine 106.6 mg/dL (0.1-20.0) H 03/17/19 16:05 Protein/Creatinin Ratio See scanned result 05/01/19 06:15 Urine Sodium 95 mmol/L 03/17/19 16:05 U Abnormal Prot Band 1 See scanned result 05/01/19 06:15 U Abnormal Prot Band 2 See scanned result 05/01/19 06:15 U Abnormal Prot Band 3 See scanned result 05/01/19 06:15 Vancomycin Trough 11.5 ug/mL (5.0-20.0) 03/18/19 13:19 Random Vancomycin 10.8 ug/mL (0-40.0) 04/14/19 03:55 Salicylates < 0.3 mg/dL (2.8-20.0) L 03/16/19 17:05 Urine Opiates Screen Presumptive negative 03/17/19 16:05 Urine Methadone Screen Presumptive negative 03/17/19 16:05 Acetaminophen < 5.0 ug/mL (10.0-30.0) L 03/16/19 17:05 Ur Barbiturates Screen Presumptive negative 03/17/19 16:05 Ur Phencyclidine Scrn Presumptive negative 03/17/19 16:05 Ur Amphetamines Screen Presumptive negative 03/17/19 16:05 U Benzodiazepines Scrn Presumptive positive 03/17/19 16:05 Urine Cocaine Screen Presumptive negative 03/17/19 16:05 U Marijuana (THC) Screen Presumptive negative 03/17/19 16:05 Drugs of Abuse Note Disclamer 03/17/19 16:05 Plasma/Serum Alcohol < 0.01 % (0-0.07) 03/16/19 17:05 Immunofix Electrophor see below 05/01/19 06:52 LANDY Screen Negative (Negative) 04/17/19 04:15 Proteinase 3 (PR3) Ab <1.0 AI (<1.0) 04/21/19 04:22 Myeloperoxidase Ab <1.0 AI (<1.0) 04/21/19 04:22 Glomerular Base Mem IgG See scanned result 04/21/19 04:22 Complement C3 150 mg/dL (82-185) 04/17/19 04:15 Complement C4 37 mg/dL (15-53) 04/17/19 04:15 Hepatitis A IgM Ab Non-reactive (NonReactive) 04/18/19 10:02 Hep Bs Antigen Non-reactive (Negative) 04/18/19 10:02 Hep B Core IgM Ab Non-reactive (NonReactive) 04/18/19 10:02 Hepatitis C Antibody Non-reactive (NonReactive) 04/18/19 10:02 HIV 1&2 Antibody Rapid Non react (Non React) 03/17/19 11:52 HIV P24 Antigen Non react (Non React) 03/17/19 11:52 Influenza A (Rapid) Negative (Negative) 03/17/19 17:00 Influenza B (Rapid) Negative (Negative) 03/17/19 17:00 Group A Strep Rapid Negative (Negative) 03/17/19 17:00 Miscellaneous Test Flexitest 1 03/21/19 12:00 Blood Type A POSITIVE 04/02/19 16:34 Antibody Screen Negative 04/02/19 16:34 Crossmatch See Detail 04/02/19 16:34 Active Medications - Current Medications Current Medications: Generic Name Dose Route Start Last Admin Trade Name Freq PRN Reason Stop Dose Admin Acetaminophen 650 mg 04/02/19 23:26 05/08/19 21:01 Tylenol PO 650 mg Q4H PRN Administration Pain, Mild (1-3),temp>100.5 Acetaminophen/Hydrocodone Bitart 1 each 05/02/19 11:50 05/11/19 08:02 [place] 5/325 PO 1 each Q6H PRN Administration Pain, Moderate (4-6) Al Hydrox/Mg Hydrox/Simethicone 15 ml 04/30/19 15:15 04/30/19 15:53 Alum-Mag Hydrox-Simeth 800-642-42kz/5ml PO 15 ml Q4H PRN Administration Indigestion Albuterol 2.5 mg 03/29/19 13:08 Proventil IH Q4HRT PRN Shortness Of Breath Lipase/Protease/Amylase 1 each 04/20/19 13:17 Pancreaze 10,500 Unit FEEDTUBE PRN PRN For Clogged Feeding Tube Bacitracin 1 applic 04/17/19 08:00 Antibiotic Oint TP Q4H PRN upper lip sore/open Dextrose 50 gm 04/17/19 08:00 D50w (25gm) Vial IV Q1H PRN Hypoglycemia Hydralazine HCl 20 mg 04/14/19 03:00 04/14/19 03:11 Apresoline IV 20 mg Q4H PRN Administration hypertemsion Hydrophilic Ointment 1 applic 03/16/19 15:50 04/19/19 18:24 Vaseline Lip Therapy TP 1 applic Q2HR PRN Administration Dry Lips Sodium Chloride 100 mls @ 999 mls/hr 04/20/19 08:41 Nacl 0.9% IV NEYMAR PRN Hypotension Sodium Chloride 500 mls @ 50 mls/hr 05/10/19 08:00 05/11/19 06:55 Nacl 0.9% 500 Ml IV 50 mls/hr DIRECT PAOLO Administration Melatonin 5 mg 04/26/19 21:00 05/09/19 23:41 Melatonin PO 5 mg QHS PRN Administration Sleep Metoprolol Succinate 50 mg 05/10/19 10:00 05/11/19 09:48 Metoprolol Xl PO 50 mg QDAY PAOLO Administration Multi-Ingred Cream/Lotion/Oil/Oint 1 applic 03/16/19 15:50 03/19/19 20:10 Artificial Tears Ophth Oint OU 1 applic Q4HR PRN Administration Dry Eye(s) Pantoprazole Sodium 40 mg 05/07/19 22:00 05/11/19 09:49 Protonix PO 40 mg BID PAOLO Administration Simple Syrup 15 ml 04/20/19 13:17 Simple Syrup FEEDTUBE PRN PRN Hypoglycemia Simple Syrup 30 ml 04/20/19 13:29 05/01/19 17:57 Simple Syrup FEEDTUBE 30 ml PRN PRN Administration Hypoglycemia Sodium Bicarbonate 325 mg 04/20/19 13:17 04/27/19 11:03 Sodium Bicarbonate FEEDTUBE 325 mg PRN PRN Administration For Clogged Feeding Tube Nutrition/Malnutrition Assess - Dietary Evaluation Nutrition/Malnutrition Findings: Nutrition Notes Start: 03/17/19 14:22 Freq: Status: Active Protocol: Document 05/07/19 14:38 JOVANNI (Rec: 05/07/19 14:46 JOVANNI [facility]- [email or web address]) Nutrition Notes Initial or Follow up Reassessment Current Diagnosis Acute Kidney Injury,Sepsis Other Pertinent Diagnosis GIB, on HD, afib Current Diet Regular + Ensure Clear daily Labs/Tests K 3.5 Ca 10.7 Pertinent Medications Reviewed Height 6 ft Weight 146.8 kg [place] Body Weight (kg) 80.90 BMI 43.9 Subjective/Other Information No meal intakes documented. Pt reports "pretty good" appetite. He is eating at least 50% of meals and drinks ONS. Burn Absent Trauma Absent #1 Nutrition Diagnosis Inadequate oral intake As Evidenced by Signs and Symptoms pt reports good appetite and is consuming at least 50% of meals Diagnosis Progress(for reassessment Improved documentation) Is patient on ventilator? No Is Patient Ambulatory and/or Out of Bed No REE-([facility]-confined to bed) 2871.756 Kcal/Kg value to use for calculation 14 Approximate Energy Requirements Using 2054 kcal/Kg Calculation Used for Recommendations Kcal/kg Additional Notes Pro needs >1.2g/kg adjBW: > 137g/day Fluid needs 1ml/kcal Nutrition Intervention Change Diet Order: Continue current diet order Add Supplement/Snack (indicate name/kcal Ensure Clear once daily /protein ) Provides kCal: 240 Provides Protein (gm) 8 Goal #1 Meet at least 75% of kcal/PRO needs via PO and ONS intakes Follow-Up By: 05/14/19 Additional Comments F/U: stable intakes (meals/ONS ), wt
[2019-05-11] MEDS: GABAPENTIN 100 MG CAP PO SCH ×2 (14:05→21:10)
--- NOTE | 2019-05-11 17:50 | Progress Note ---
Assessment and Plan Patient awake and oriented. patient counselled on using O2 as needed for shortness of breath.. O2 saturation is 98% on room air. No acute respiratory distress. Patient afebrile and has leukocytosis. Patients heart rate and blood pressure running good. Patients calcium to day 9.9, in the normal range. Patient has debridement of wound on left hand. Patient has venous doppler studies of legs, reported DVT.Patient undergone IVC filter placement ... . - Patient Problems (1) Acute respiratory failure Current Visit: Yes Status: Resolved Qualifiers: Respiratory failure complication: hypoxia Qualified Code(s): J96.01 - Acute respiratory failure with hypoxia Plan to address problem: O2 2L as needed for shortness of breath or desaturation. Albuterol/atrovent aerosol treatments q 6 hours. Continue Prevacid. Patient has IVC filter placement for DVT.. (2) Altered mental status Current Visit: Yes Status: Acute Qualifiers: Altered mental status type: unspecified Qualified Code(s): R41.82 - Altered mental status, unspecified Plan to address problem: Management as per primary care and neurology. (3) Atrial fibrillation with RVR Current Visit: Yes Status: Acute Plan to address problem: Management as per cardiology. (4) Cardiopulmonary arrest Current Visit: Yes Status: Acute Plan to address problem: Patient resuscitated. Presently resting on room air. O2 saturation 98%.. (5) Acute renal failure Current Visit: Yes Status: Acute Qualifiers: Acute renal failure type: with acute tubular necrosis Qualified Code(s): N17.0 - Acute kidney failure with tubular necrosis Plan to address problem: Management as per nephrology. (6) Aspiration pneumonia Current Visit: Yes Status: Acute Qualifiers: Aspiration pneumonia type: unspecified Plan to address problem: Patient treated with Azactam and zyvox. (7) GI bleed Current Visit: Yes Status: Acute Plan to address problem: Management as per gastroenterology. (8) DVT (deep venous thrombosis) Current Visit: Yes Status: Acute Plan to address problem: Venous doppler studies of legs reported DVT. Patient has IVC filter placement for DVT.. Subjective Date of service: 05/11/19 Principal diagnosis: Anemia - DVT rt IJ, GI bleeding Interval history: Patient awake and oriented. patient counselled on using O2 as needed for shortness of breath.. O2 saturation is 98% on room air. No acute respiratory distress. Patient afebrile and has leukocytosis. Patients heart rate and blood pressure running good. Patients calcium to day 9.9, in the normal range. Patient has debridement of wound on left hand. Patient has venous doppler studies of legs, reported DVT.Patient undergone IVC filter placement . Objective Vital Signs - 12hr 05/11/19 05/11/19 05:59 11:24 Temperature 97.7 F 98.5 F Pulse Rate 77 87 Respiratory 16 18 Rate Blood Pressure 117/76 105/59 O2 Sat by Pulse 96 95 Oximetry Constitutional: no acute distress, alert, other (middle aged morbidly obese CM, normocephalic with mildly incresed respiratory effort at rest) Eyes: non-icteric ENT: oropharynx moist, other (extubated) Neck: supple, no lymphadenopathy, no JVD, other (large neck circumference) Effort: mildly labored Ascultation: Bilateral: diminished breath sounds, rales, rhonchi (scant) Percussion: Bilateral: not dull Cardiovascular: regular rate and rhythm, other ( S1,S2) Gastrointestinal: normoactive bowel sounds, soft, non-tender, non-distended, other (obese) Integumentary: normal Extremities: no cyanosis, pink and warm, pulses normal, no ischemia or petechiae Neurologic: normal mental status, non-focal exam (grossly), pupils equal and round, CN II-XII normal, other (very weak) Psychiatric: mood appropriate, affect normal CBC and BMP: 05/09/19 05:41 05/11/19 04:40 ABG, PT/INR, D-dimer: ABG POC ABG pH 7.401 (7.35-7.45) 04/07/19 12:57 ABG pH 7.388 pH Units (7.350-7.450) 04/06/19 05:20 POC ABG pCO2 41.5 (35-45) 04/07/19 12:57 ABG pCO2 38.5 mm Hg 04/06/19 05:20 POC ABG pO2 107 (80-105) H 04/07/19 12:57 ABG pO2 104.0 mm Hg (80.0-90.0) H 04/06/19 05:20 POC ABG HCO3 25.7 (22-26 mml/L) 04/07/19 12:57 POC ABG Total CO2 27 (23-27mmol/L) 04/07/19 12:57 POC ABG O2 Sat 98 04/07/19 12:57 ABG O2 Saturation 97.8 % (95.0-99.0) 04/06/19 05:20 PT/INR, D-dimer PT 14.8 Sec. (12.2-14.9) 05/10/19 06:42 INR 1.17 (0.87-1.13) H 05/10/19 06:42 D-Dimer 4845.98 ng/mlDDU (0-234) H 03/28/19 12:00 Abnormal lab findings: Abnormal Labs 03/16/19 03/16/19 03/16/19 15:32 16:03 16:05 WBC 27.0 H RBC 5.55 H Hgb 15.7 H Hct 47.1 H MCV MCH MCHC RDW Plt Count 75 L Lymph % (Auto) [place] % (Auto) Eos % (Auto) Lymph # [place] # Eos # Seg Neutrophils % Seg Neuts % (Manual) 85.0 H Lymphocytes % (Manual) 2.0 L Monocytes % (Manual) Nucleated RBC % Seg Neutrophils # Seg Neutrophils # Man 23.0 H Lymphocytes # (Manual) 0.5 L Monocytes # (Manual) PT INR D-Dimer Heparin Anti-Xa Level POC ABG pH ABG pH POC ABG pCO2 POC ABG pO2 ABG pO2 ABG HCO3 ABG O2 Saturation ABG Base Excess ABG Hemoglobin Oxyhemoglobin Sodium 127 L Potassium Chloride 87.8 L Carbon Dioxide 17 L BUN 49 H Creatinine 5.8 H Glucose 150 H POC Glucose 118 H Lactic Acid Calcium 6.6 L Ionized Calcium Phosphorus Magnesium 1.10 L Iron TIBC Ferritin Total Bilirubin Direct Bilirubin AST ALT Alkaline Phosphatase Total Creatine Kinase 45732 H CK-MB (CK-2) Troponin T C-Reactive Protein Serum Total Protein Total Protein Albumin Lgzrk-2-Gzshlcfgt Ldemf-8-Vjpoczeaj PEP Interpretation Triglycerides LDL Cholesterol Direct HDL Cholesterol Free T4 PTH Intact Urine WBC (Auto) Urine Creatinine Salicylates Acetaminophen Crossmatch 03/16/19 03/16/19 03/16/19 16:59 17:05 17:05 WBC RBC Hgb Hct MCV MCH MCHC RDW Plt Count Lymph % (Auto) [place] % (Auto) Eos % (Auto) Lymph # [place] # Eos # Seg Neutrophils % Seg Neuts % (Manual) Lymphocytes % (Manual) Monocytes % (Manual) Nucleated RBC % Seg Neutrophils # Seg Neutrophils # Man Lymphocytes # (Manual) Monocytes # (Manual) PT INR D-Dimer Heparin Anti-Xa Level POC ABG pH 7.297 L ABG pH POC ABG pCO2 33.0 L POC ABG pO2 ABG pO2 ABG HCO3 ABG O2 Saturation ABG Base Excess ABG Hemoglobin Oxyhemoglobin Sodium Potassium Chloride Carbon Dioxide BUN Creatinine Glucose POC Glucose Lactic Acid Calcium Ionized Calcium Phosphorus Magnesium Iron TIBC Ferritin Total Bilirubin Direct Bilirubin AST ALT Alkaline Phosphatase Total Creatine Kinase 95282 H CK-MB (CK-2) 83.1 H Troponin T C-Reactive Protein Serum Total Protein Total Protein Albumin Iaazf-2-Olsltsiuj Mxcti-8-Sxrcuqhrv PEP Interpretation Triglycerides LDL Cholesterol Direct HDL Cholesterol Free T4 0.72 L PTH Intact Urine WBC (Auto) Urine Creatinine Salicylates Acetaminophen Crossmatch 03/16/19 03/16/19 03/16/19 17:05 17:05 17:05 WBC RBC Hgb Hct MCV MCH MCHC RDW Plt Count Lymph % (Auto) [place] % (Auto) Eos % (Auto) Lymph # [place] # Eos # Seg Neutrophils % Seg Neuts % (Manual) Lymphocytes % (Manual) Monocytes % (Manual) Nucleated RBC % Seg Neutrophils # Seg Neutrophils # Man Lymphocytes # (Manual) Monocytes # (Manual) PT INR D-Dimer Heparin Anti-Xa Level POC ABG pH ABG pH POC ABG pCO2 POC ABG pO2 ABG pO2 ABG HCO3 ABG O2 Saturation ABG Base Excess ABG Hemoglobin Oxyhemoglobin Sodium Potassium Chloride Carbon Dioxide BUN Creatinine Glucose POC Glucose Lactic Acid 5.10 H* Calcium Ionized Calcium Phosphorus Magnesium Iron TIBC Ferritin Total Bilirubin Direct Bilirubin AST ALT Alkaline Phosphatase Total Creatine Kinase CK-MB (CK-2) Troponin T C-Reactive Protein Serum Total Protein Total Protein Albumin Skmwf-7-Txjqslxil Umuwf-5-Ypjjvlgkl PEP Interpretation Triglycerides LDL Cholesterol Direct HDL Cholesterol Free T4 PTH Intact Urine WBC (Auto) Urine Creatinine Salicylates < 0.3 L Acetaminophen < 5.0 L Crossmatch 03/16/19 03/16/19 03/16/19 17:05 17:05 20:35 WBC RBC Hgb Hct MCV MCH MCHC RDW Plt Count Lymph % (Auto) [place] % (Auto) Eos % (Auto) Lymph # [place] # Eos # Seg Neutrophils % Seg Neuts % (Manual) Lymphocytes % (Manual) Monocytes % (Manual) Nucleated RBC % Seg Neutrophils # Seg Neutrophils # Man Lymphocytes # (Manual) Monocytes # (Manual) PT 15.9 H INR 1.30 H D-Dimer Heparin Anti-Xa Level POC ABG pH ABG pH POC ABG pCO2 POC ABG pO2 ABG pO2 ABG HCO3 ABG O2 Saturation ABG Base Excess ABG Hemoglobin Oxyhemoglobin Sodium Potassium Chloride Carbon Dioxide BUN Creatinine Glucose POC Glucose Lactic Acid 3.30 H* Calcium Ionized Calcium Phosphorus Magnesium Iron TIBC Ferritin Total Bilirubin 6.20 H Direct Bilirubin 5.9 H AST 800 H ALT 120 H Alkaline Phosphatase Total Creatine Kinase CK-MB (CK-2) Troponin T C-Reactive Protein Serum Total Protein Total Protein 4.4 L Albumin 2.4 L Kjfkg-6-Udoekmdxf Lmyon-7-Xomycyzct PEP Interpretation Triglycerides LDL Cholesterol Direct HDL Cholesterol Free T4 PTH Intact Urine WBC (Auto) Urine Creatinine Salicylates Acetaminophen Crossmatch 03/16/19 03/16/19 03/16/19 21:45 22:32 Unknown WBC RBC Hgb Hct MCV MCH MCHC RDW Plt Count Lymph % (Auto) [place] % (Auto) Eos % (Auto) Lymph # [place] # Eos # Seg Neutrophils % Seg Neuts % (Manual) Lymphocytes % (Manual) Monocytes % (Manual) Nucleated RBC % Seg Neutrophils # Seg Neutrophils # Man Lymphocytes # (Manual) Monocytes # (Manual) PT INR D-Dimer Heparin Anti-Xa Level POC ABG pH ABG pH POC ABG pCO2 POC ABG pO2 ABG pO2 ABG HCO3 ABG O2 Saturation ABG Base Excess ABG Hemoglobin Oxyhemoglobin Sodium Potassium Chloride Carbon Dioxide BUN Creatinine Glucose POC Glucose Lactic Acid 3.30 H* 3.00 H* Calcium Ionized Calcium Phosphorus Magnesium Iron TIBC Ferritin Total Bilirubin Direct Bilirubin AST ALT Alkaline Phosphatase Total Creatine Kinase CK-MB (CK-2) Troponin T 0.047 H D C-Reactive Protein Serum Total Protein Total Protein Albumin Gugqy-3-Otczjpdku Gtpfp-6-Nqzxqdlux PEP Interpretation Triglycerides 395 H LDL Cholesterol Direct 10 L HDL Cholesterol 7 L Free T4 PTH Intact Urine WBC (Auto) Urine Creatinine Salicylates Acetaminophen Crossmatch 03/17/19 03/17/19 03/17/19 03:45 03:45 03:45 WBC RBC Hgb Hct MCV MCH MCHC RDW Plt Count Lymph % (Auto) [place] % (Auto) Eos % (Auto) Lymph # [place] # Eos # Seg Neutrophils % Seg Neuts % (Manual) Lymphocytes % (Manual) Monocytes % (Manual) Nucleated RBC % Seg Neutrophils # Seg Neutrophils # Man Lymphocytes # (Manual) Monocytes # (Manual) PT INR D-Dimer Heparin Anti-Xa Level POC ABG pH ABG pH POC ABG pCO2 POC ABG pO2 ABG pO2 ABG HCO3 ABG O2 Saturation ABG Base Excess ABG Hemoglobin Oxyhemoglobin Sodium 131 L Potassium Chloride 88.9 L Carbon Dioxide BUN 53 H Creatinine 7.1 H Glucose POC Glucose Lactic Acid 4.10 H* Calcium 5.4 L* D Ionized Calcium Phosphorus 7.30 H Magnesium 1.60 L Iron TIBC Ferritin Total Bilirubin 5.90 H Direct Bilirubin AST 801 H ALT 109 H Alkaline Phosphatase Total Creatine Kinase 76924 H 26674 H CK-MB (CK-2) 41.5 H Troponin T 0.054 H C-Reactive Protein Serum Total Protein Total Protein 4.5 L Albumin 2.0 L Edcai-7-Hvzyibqcq Gmhvp-9-Nbbcdkngp PEP Interpretation Triglycerides LDL Cholesterol Direct HDL Cholesterol Free T4 PTH Intact Urine WBC (Auto) Urine Creatinine Salicylates Acetaminophen Crossmatch 03/17/19 03/17/19 03/17/19 05:47 07:16 07:16 WBC RBC Hgb Hct MCV MCH MCHC RDW Plt Count Lymph % (Auto) [place] % (Auto) Eos % (Auto) Lymph # [place] # Eos # Seg Neutrophils % Seg Neuts % (Manual) Lymphocytes % (Manual) Monocytes % (Manual) Nucleated RBC % Seg Neutrophils # Seg Neutrophils # Man Lymphocytes # (Manual) Monocytes # (Manual) PT INR D-Dimer Heparin Anti-Xa Level POC ABG pH 7.193 L ABG pH POC ABG pCO2 45.2 H POC ABG pO2 65 L ABG pO2 ABG HCO3 ABG O2 Saturation ABG Base Excess ABG Hemoglobin Oxyhemoglobin Sodium Potassium Chloride Carbon Dioxide BUN Creatinine Glucose POC Glucose Lactic Acid 5.50 H* Calcium Ionized Calcium Phosphorus Magnesium Iron TIBC Ferritin Total Bilirubin Direct Bilirubin AST ALT Alkaline Phosphatase Total Creatine Kinase 24360 H CK-MB (CK-2) 54.3 H Troponin T 0.058 H C-Reactive Protein Serum Total Protein Total Protein Albumin Ucrah-8-Iudcdyjcj Lhufp-4-Ykkyqghhc PEP Interpretation Triglycerides LDL Cholesterol Direct HDL Cholesterol Free T4 PTH Intact Urine WBC (Auto) Urine Creatinine Salicylates Acetaminophen Crossmatch 03/17/19 03/17/19 03/17/19 11:52 12:51 13:01 WBC RBC Hgb Hct MCV MCH MCHC RDW Plt Count Lymph % (Auto) [place] % (Auto) Eos % (Auto) Lymph # [place] # Eos # Seg Neutrophils % Seg Neuts % (Manual) Lymphocytes % (Manual) Monocytes % (Manual) Nucleated RBC % Seg Neutrophils # Seg Neutrophils # Man Lymphocytes # (Manual) Monocytes # (Manual) PT INR D-Dimer Heparin Anti-Xa Level POC ABG pH 7.154 L ABG pH POC ABG pCO2 34.3 L POC ABG pO2 73 L ABG pO2 ABG HCO3 ABG O2 Saturation ABG Base Excess ABG Hemoglobin Oxyhemoglobin Sodium Potassium Chloride Carbon Dioxide BUN Creatinine Glucose POC Glucose 60 L Lactic Acid 8.20 H* Calcium Ionized Calcium Phosphorus Magnesium Iron TIBC Ferritin Total Bilirubin Direct Bilirubin AST ALT Alkaline Phosphatase Total Creatine Kinase CK-MB (CK-2) Troponin T C-Reactive Protein Serum Total Protein Total Protein Albumin Ssfnw-6-Gtolobtwq Ppmnf-1-Nibmaofkb PEP Interpretation Triglycerides LDL Cholesterol Direct HDL Cholesterol Free T4 PTH Intact Urine WBC (Auto) Urine Creatinine Salicylates Acetaminophen Crossmatch 03/17/19 03/17/19 03/17/19 14:37 14:37 14:37 WBC 29.3 H RBC Hgb Hct MCV MCH MCHC RDW 15.8 H Plt Count 45 L Lymph % (Auto) [place] % (Auto) Eos % (Auto) Lymph # [place] # Eos # Seg Neutrophils % Seg Neuts % (Manual) 81.0 H Lymphocytes % (Manual) 1.0 L Monocytes % (Manual) 15.0 H Nucleated RBC % Seg Neutrophils # Seg Neutrophils # Man 23.7 H Lymphocytes # (Manual) 0.3 L Monocytes # (Manual) 4.4 H PT INR D-Dimer Heparin Anti-Xa Level POC ABG pH ABG pH POC ABG pCO2 POC ABG pO2 ABG pO2 ABG HCO3 ABG O2 Saturation ABG Base Excess ABG Hemoglobin Oxyhemoglobin Sodium Potassium Chloride Carbon Dioxide BUN Creatinine Glucose POC Glucose Lactic Acid 4.90 H* Calcium Ionized Calcium Phosphorus Magnesium Iron TIBC Ferritin Total Bilirubin Direct Bilirubin AST ALT Alkaline Phosphatase Total Creatine Kinase CK-MB (CK-2) Troponin T C-Reactive Protein 24.90 H Serum Total Protein Total Protein Albumin Ncqvg-8-Ijjtizbea Gmvfh-4-Yavdfmomp PEP Interpretation Triglycerides LDL Cholesterol Direct HDL Cholesterol Free T4 PTH Intact Urine WBC (Auto) Urine Creatinine Salicylates Acetaminophen Crossmatch 03/17/19 03/17/19 03/17/19 16:05 16:05 17:02 WBC RBC Hgb Hct MCV MCH MCHC RDW Plt Count Lymph % (Auto) [place] % (Auto) Eos % (Auto) Lymph # [place] # Eos # Seg Neutrophils % Seg Neuts % (Manual) Lymphocytes % (Manual) Monocytes % (Manual) Nucleated RBC % Seg Neutrophils # Seg Neutrophils # Man Lymphocytes # (Manual) Monocytes # (Manual) PT INR D-Dimer Heparin Anti-Xa Level POC ABG pH 7.183 L ABG pH POC ABG pCO2 POC ABG pO2 65 L ABG pO2 ABG HCO3 ABG O2 Saturation ABG Base Excess ABG Hemoglobin Oxyhemoglobin Sodium Potassium Chloride Carbon Dioxide BUN Creatinine Glucose POC Glucose Lactic Acid Calcium Ionized Calcium Phosphorus Magnesium Iron TIBC Ferritin Total Bilirubin Direct Bilirubin AST ALT Alkaline Phosphatase Total Creatine Kinase CK-MB (CK-2) Troponin T C-Reactive Protein Serum Total Protein Total Protein Albumin Fkfrx-5-Afbustnym Zjfzi-5-Clfkqcubq PEP Interpretation Triglycerides LDL Cholesterol Direct HDL Cholesterol Free T4 PTH Intact Urine WBC (Auto) 30.0 H Urine Creatinine 106.6 H Salicylates Acetaminophen Crossmatch 03/18/19 03/18/19 03/18/19 05:12 05:16 05:53 WBC RBC Hgb Hct MCV MCH MCHC RDW Plt Count Lymph % (Auto) [place] % (Auto) Eos % (Auto) Lymph # [place] # Eos # Seg Neutrophils % Seg Neuts % (Manual) Lymphocytes % (Manual) Monocytes % (Manual) Nucleated RBC % Seg Neutrophils # Seg Neutrophils # Man Lymphocytes # (Manual) Monocytes # (Manual) PT INR D-Dimer Heparin Anti-Xa Level POC ABG pH 7.257 L ABG pH POC ABG pCO2 31.6 L POC ABG pO2 69 L ABG pO2 ABG HCO3 ABG O2 Saturation ABG Base Excess ABG Hemoglobin Oxyhemoglobin Sodium Potassium Chloride Carbon Dioxide BUN Creatinine Glucose POC Glucose 141 H Lactic Acid 5.00 H* Calcium Ionized Calcium Phosphorus Magnesium Iron TIBC Ferritin Total Bilirubin Direct Bilirubin AST ALT Alkaline Phosphatase Total Creatine Kinase CK-MB (CK-2) Troponin T C-Reactive Protein Serum Total Protein Total Protein Albumin Zgbym-7-Bwdtrdqmd Vfsxe-3-Nyyjwdoho PEP Interpretation Triglycerides LDL Cholesterol Direct HDL Cholesterol Free T4 PTH Intact Urine WBC (Auto) Urine Creatinine Salicylates Acetaminophen Crossmatch 03/18/19 03/18/19 03/18/19 06:57 08:40 08:40 WBC 31.7 H RBC Hgb Hct MCV MCH MCHC RDW 15.5 H Plt Count 35 L Lymph % (Auto) [place] % (Auto) Eos % (Auto) Lymph # [place] # Eos # Seg Neutrophils % Seg Neuts % (Manual) Lymphocytes % (Manual) Monocytes % (Manual) Nucleated RBC % Seg Neutrophils # Seg Neutrophils # Man Lymphocytes # (Manual) Monocytes # (Manual) PT INR D-Dimer Heparin Anti-Xa Level POC ABG pH ABG pH POC ABG pCO2 POC ABG pO2 ABG pO2 ABG HCO3 ABG O2 Saturation ABG Base Excess ABG Hemoglobin Oxyhemoglobin Sodium 132 L Potassium 5.5 H D Chloride 88.5 L Carbon Dioxide 18 L BUN 71 H Creatinine 8.1 H Glucose 205 H POC Glucose Lactic Acid 5.00 H* Calcium 4.1 L* D Ionized Calcium Phosphorus Magnesium 2.40 H Iron TIBC Ferritin Total Bilirubin 7.50 H Direct Bilirubin AST 1088 H ALT 159 H Alkaline Phosphatase 190 H Total Creatine Kinase 923591 H CK-MB (CK-2) Troponin T C-Reactive Protein Serum Total Protein Total Protein 4.7 L Albumin 1.8 L Rqjmp-8-Xqgwlzcmk Jctgo-3-Gxykouwux PEP Interpretation Triglycerides LDL Cholesterol Direct HDL Cholesterol Free T4 PTH Intact Urine WBC (Auto) Urine Creatinine Salicylates Acetaminophen Crossmatch 03/18/19 03/18/19 03/18/19 12:33 12:50 13:19 WBC RBC Hgb Hct MCV MCH MCHC RDW Plt Count Lymph % (Auto) [place] % (Auto) Eos % (Auto) Lymph # [place] # Eos # Seg Neutrophils % Seg Neuts % (Manual) Lymphocytes % (Manual) Monocytes % (Manual) Nucleated RBC % Seg Neutrophils # Seg Neutrophils # Man Lymphocytes # (Manual) Monocytes # (Manual) PT INR D-Dimer Heparin Anti-Xa Level POC ABG pH 7.282 L ABG pH POC ABG pCO2 POC ABG pO2 67 L ABG pO2 ABG HCO3 ABG O2 Saturation ABG Base Excess ABG Hemoglobin Oxyhemoglobin Sodium Potassium Chloride Carbon Dioxide BUN Creatinine Glucose POC Glucose 129 H Lactic Acid 3.30 H* Calcium Ionized Calcium Phosphorus Magnesium Iron TIBC Ferritin Total Bilirubin Direct Bilirubin AST ALT Alkaline Phosphatase Total Creatine Kinase CK-MB (CK-2) Troponin T C-Reactive Protein Serum Total Protein Total Protein Albumin Tzzks-7-[place] Aihnc-4-Kfgzoivmx PEP Interpretation Triglycerides LDL Cholesterol Direct HDL Cholesterol Free T4 PTH Intact Urine WBC (Auto) Urine Creatinine Salicylates Acetaminophen Crossmatch 03/18/19 03/18/19 03/18/19 13:19 16:50 18:11 WBC RBC Hgb Hct MCV MCH MCHC RDW Plt Count Lymph % (Auto) [place] % (Auto) Eos % (Auto) Lymph # [place] # Eos # Seg Neutrophils % Seg Neuts % (Manual) Lymphocytes % (Manual) Monocytes % (Manual) Nucleated RBC % Seg Neutrophils # Seg Neutrophils # Man Lymphocytes # (Manual) Monocytes # (Manual) PT INR D-Dimer Heparin Anti-Xa Level POC ABG pH ABG pH POC ABG pCO2 POC ABG pO2 59 L ABG pO2 ABG HCO3 ABG O2 Saturation ABG Base Excess ABG Hemoglobin Oxyhemoglobin Sodium Potassium Chloride Carbon Dioxide BUN Creatinine Glucose POC Glucose 151 H Lactic Acid Calcium 4.2 L* Ionized Calcium Phosphorus Magnesium Iron TIBC Ferritin Total Bilirubin Direct Bilirubin AST ALT Alkaline Phosphatase Total Creatine Kinase 783080 H CK-MB (CK-2) Troponin T C-Reactive Protein Serum Total Protein Total Protein Albumin Tpbft-4-Khfqoakcm Biuvm-7-Siwcrvccp PEP Interpretation Triglycerides LDL Cholesterol Direct HDL Cholesterol Free T4 PTH Intact Urine WBC (Auto) Urine Creatinine Salicylates Acetaminophen Crossmatch 03/18/19 03/18/19 03/19/19 18:20 23:39 01:42 WBC RBC Hgb Hct MCV MCH MCHC RDW Plt Count Lymph % (Auto) [place] % (Auto) Eos % (Auto) Lymph # [place] # Eos # Seg Neutrophils % Seg Neuts % (Manual) Lymphocytes % (Manual) Monocytes % (Manual) Nucleated RBC % Seg Neutrophils # Seg Neutrophils # Man Lymphocytes # (Manual) Monocytes # (Manual) PT INR D-Dimer Heparin Anti-Xa Level POC ABG pH 7.345 L ABG pH 7.285 L POC ABG pCO2 POC ABG pO2 59 L ABG pO2 44.0 L ABG HCO3 ABG O2 Saturation 70.9 L ABG Base Excess -5.7 L ABG Hemoglobin 11.9 L Oxyhemoglobin 69.6 L Sodium Potassium Chloride Carbon Dioxide BUN Creatinine Glucose POC Glucose 152 H Lactic Acid Calcium Ionized Calcium Phosphorus Magnesium Iron TIBC Ferritin Total Bilirubin Direct Bilirubin AST ALT Alkaline Phosphatase Total Creatine Kinase CK-MB (CK-2) Troponin T C-Reactive Protein Serum Total Protein Total Protein Albumin [place]-7-Xwsflkbln Qyhwg-8-Kqrcefjgj PEP Interpretation Triglycerides LDL Cholesterol Direct HDL Cholesterol Free T4 PTH Intact Urine WBC (Auto) Urine Creatinine Salicylates Acetaminophen Crossmatch 03/19/19 03/19/19 03/19/19 04:00 04:00 05:35 WBC 36.5 H RBC Hgb Hct MCV MCH MCHC RDW 15.8 H Plt Count 35 L Lymph % (Auto) [place] % (Auto) Eos % (Auto) Lymph # [place] # Eos # Seg Neutrophils % Seg Neuts % (Manual) Lymphocytes % (Manual) Monocytes % (Manual) Nucleated RBC % Seg Neutrophils # Seg Neutrophils # Man Lymphocytes # (Manual) Monocytes # (Manual) PT INR D-Dimer Heparin Anti-Xa Level POC ABG pH ABG pH 7.265 L POC ABG pCO2 POC ABG pO2 ABG pO2 35.4 L* ABG HCO3 ABG O2 Saturation 54.4 L ABG Base Excess -6.7 L ABG Hemoglobin 12.9 L Oxyhemoglobin 53.4 L Sodium 132 L Potassium 5.7 H Chloride 89.8 L Carbon Dioxide 19 L BUN 62 H Creatinine 6.4 H Glucose 151 H POC Glucose Lactic Acid Calcium 5.2 L* D Ionized Calcium Phosphorus Magnesium Iron TIBC Ferritin Total Bilirubin 7.80 H Direct Bilirubin AST 682 H ALT 130 H Alkaline Phosphatase 167 H Total Creatine Kinase CK-MB (CK-2) Troponin T C-Reactive Protein Serum Total Protein Total Protein 4.8 L Albumin 2.3 L Mryit-1-Akxqphjfb Lsynl-9-Hiarnulgs PEP Interpretation Triglycerides LDL Cholesterol Direct HDL Cholesterol Free T4 PTH Intact Urine WBC (Auto) Urine Creatinine Salicylates Acetaminophen Crossmatch 03/19/19 03/19/19 03/19/19 05:49 09:16 09:50 WBC RBC Hgb Hct MCV MCH MCHC RDW Plt Count Lymph % (Auto) [place] % (Auto) Eos % (Auto) Lymph # [place] # Eos # Seg Neutrophils % Seg Neuts % (Manual) Lymphocytes % (Manual) Monocytes % (Manual) Nucleated RBC % Seg Neutrophils # Seg Neutrophils # Man Lymphocytes # (Manual) Monocytes # (Manual) PT INR D-Dimer Heparin Anti-Xa Level POC ABG pH 7.222 L ABG pH POC ABG pCO2 56.6 H POC ABG pO2 ABG pO2 ABG HCO3 ABG O2 Saturation ABG Base Excess ABG Hemoglobin Oxyhemoglobin Sodium Potassium Chloride Carbon Dioxide BUN Creatinine Glucose POC Glucose 154 H Lactic Acid 2.70 H* Calcium Ionized Calcium Phosphorus Magnesium Iron TIBC Ferritin Total Bilirubin Direct Bilirubin AST ALT Alkaline Phosphatase Total Creatine Kinase CK-MB (CK-2) Troponin T C-Reactive Protein Serum Total Protein Total Protein Albumin Hclzz-3-Vgzcvzmbv Wncyv-5-Ldcomyeoj PEP Interpretation Triglycerides LDL Cholesterol Direct HDL Cholesterol Free T4 PTH Intact Urine WBC (Auto) Urine Creatinine Salicylates Acetaminophen Crossmatch 03/19/19 03/19/19 03/19/19 09:50 11:28 17:58 WBC RBC Hgb Hct MCV MCH MCHC RDW Plt Count Lymph % (Auto) [place] % (Auto) Eos % (Auto) Lymph # [place] # Eos # Seg Neutrophils % Seg Neuts % (Manual) Lymphocytes % (Manual) Monocytes % (Manual) Nucleated RBC % Seg Neutrophils # Seg Neutrophils # Man Lymphocytes # (Manual) Monocytes # (Manual) PT INR D-Dimer Heparin Anti-Xa Level POC ABG pH 7.250 L ABG pH POC ABG pCO2 52.6 H POC ABG pO2 ABG pO2 ABG HCO3 ABG O2 Saturation ABG Base Excess ABG Hemoglobin Oxyhemoglobin Sodium Potassium Chloride Carbon Dioxide BUN Creatinine Glucose POC Glucose 160 H Lactic Acid Calcium Ionized Calcium Phosphorus Magnesium Iron TIBC Ferritin Total Bilirubin Direct Bilirubin AST ALT Alkaline Phosphatase Total Creatine Kinase 98428 H CK-MB (CK-2) Troponin T C-Reactive Protein Serum Total Protein Total Protein Albumin Eqwwc-0-Qxytyqfxe Sgaqa-1-Ekqaqaokg PEP Interpretation Triglycerides LDL Cholesterol Direct HDL Cholesterol Free T4 PTH Intact Urine WBC (Auto) Urine Creatinine Salicylates Acetaminophen Crossmatch 03/19/19 03/19/19 03/20/19 19:48 21:03 02:16 WBC RBC Hgb Hct MCV MCH MCHC RDW Plt Count Lymph % (Auto) [place] % (Auto) Eos % (Auto) Lymph # [place] # Eos # Seg Neutrophils % Seg Neuts % (Manual) Lymphocytes % (Manual) Monocytes % (Manual) Nucleated RBC % Seg Neutrophils # Seg Neutrophils # Man Lymphocytes # (Manual) Monocytes # (Manual) PT INR D-Dimer Heparin Anti-Xa Level POC ABG pH 7.279 L ABG pH POC ABG pCO2 50.3 H POC ABG pO2 129 H ABG pO2 ABG HCO3 ABG O2 Saturation ABG Base Excess ABG Hemoglobin Oxyhemoglobin Sodium Potassium Chloride Carbon Dioxide BUN Creatinine Glucose POC Glucose 119 H 119 H Lactic Acid Calcium Ionized Calcium Phosphorus Magnesium Iron TIBC Ferritin Total Bilirubin Direct Bilirubin AST ALT Alkaline Phosphatase Total Creatine Kinase CK-MB (CK-2) Troponin T C-Reactive Protein Serum Total Protein Total Protein Albumin Votde-5-Gmtpeennb Fqbqn-4-Yzzkaywra PEP Interpretation Triglycerides LDL Cholesterol Direct HDL Cholesterol Free T4 PTH Intact Urine WBC (Auto) Urine Creatinine Salicylates Acetaminophen Crossmatch 03/20/19 03/20/19 03/20/19 04:23 05:05 09:30 WBC 36.3 H RBC Hgb Hct MCV MCH MCHC RDW 15.5 H Plt Count 29 L Lymph % (Auto) [place] % (Auto) Eos % (Auto) Lymph # [place] # Eos # Seg Neutrophils % Seg Neuts % (Manual) Lymphocytes % (Manual) Monocytes % (Manual) Nucleated RBC % Seg Neutrophils # Seg Neutrophils # Man Lymphocytes # (Manual) Monocytes # (Manual) PT INR D-Dimer Heparin Anti-Xa Level POC ABG pH ABG pH POC ABG pCO2 POC ABG pO2 280 H ABG pO2 ABG HCO3 ABG O2 Saturation ABG Base Excess ABG Hemoglobin Oxyhemoglobin Sodium Potassium Chloride Carbon Dioxide BUN Creatinine Glucose POC Glucose 115 H Lactic Acid Calcium Ionized Calcium Phosphorus Magnesium Iron TIBC Ferritin Total Bilirubin Direct Bilirubin AST ALT Alkaline Phosphatase Total Creatine Kinase CK-MB (CK-2) Troponin T C-Reactive Protein Serum Total Protein Total Protein Albumin Bmxab-5-Rigaptxfv Bdciq-0-Ymshmsabh PEP Interpretation Triglycerides LDL Cholesterol Direct HDL Cholesterol Free T4 PTH Intact Urine WBC (Auto) Urine Creatinine Salicylates Acetaminophen Crossmatch 03/20/19 03/20/19 03/20/19 09:30 09:30 11:34 WBC RBC Hgb Hct MCV MCH MCHC RDW Plt Count Lymph % (Auto) [place] % (Auto) Eos % (Auto) Lymph # [place] # Eos # Seg Neutrophils % Seg Neuts % (Manual) Lymphocytes % (Manual) Monocytes % (Manual) Nucleated RBC % Seg Neutrophils # Seg Neutrophils # Man Lymphocytes # (Manual) Monocytes # (Manual) PT INR D-Dimer Heparin Anti-Xa Level POC ABG pH ABG pH POC ABG pCO2 POC ABG pO2 ABG pO2 ABG HCO3 ABG O2 Saturation ABG Base Excess ABG Hemoglobin Oxyhemoglobin Sodium 131 L Potassium Chloride 92.3 L Carbon Dioxide 20 L BUN 68 H Creatinine 6.1 H Glucose 164 H POC Glucose 141 H Lactic Acid Calcium 5.3 L* Ionized Calcium Phosphorus Magnesium Iron TIBC Ferritin Total Bilirubin 9.50 H Direct Bilirubin AST 381 H ALT 116 H Alkaline Phosphatase 255 H Total Creatine Kinase 51804 H CK-MB (CK-2) Troponin T C-Reactive Protein Serum Total Protein Total Protein 5.1 L Albumin 2.3 L Zqtiz-3-Cuuhsmiur Aohci-9-Vaxzinyhf PEP Interpretation Triglycerides LDL Cholesterol Direct HDL Cholesterol Free T4 PTH Intact Urine WBC (Auto) Urine Creatinine Salicylates Acetaminophen Crossmatch 03/20/19 03/20/19 03/20/19 14:41 14:45 18:50 WBC RBC Hgb Hct MCV MCH MCHC RDW Plt Count Lymph % (Auto) [place] % (Auto) Eos % (Auto) Lymph # [place] # Eos # Seg Neutrophils % Seg Neuts % (Manual) Lymphocytes % (Manual) Monocytes % (Manual) Nucleated RBC % Seg Neutrophils # Seg Neutrophils # Man Lymphocytes # (Manual) Monocytes # (Manual) PT INR D-Dimer Heparin Anti-Xa Level POC ABG pH ABG pH POC ABG pCO2 POC ABG pO2 ABG pO2 ABG HCO3 ABG O2 Saturation ABG Base Excess ABG Hemoglobin Oxyhemoglobin Sodium Potassium Chloride Carbon Dioxide BUN Creatinine Glucose POC Glucose 117 H Lactic Acid 2.90 H* Calcium Ionized Calcium Phosphorus Magnesium Iron TIBC Ferritin Total Bilirubin Direct Bilirubin AST ALT Alkaline Phosphatase Total Creatine Kinase CK-MB (CK-2) Troponin T C-Reactive Protein 13.30 H Serum Total Protein Total Protein Albumin Vzynr-3-Unctufleh Nxyok-0-Pionjrcaj PEP Interpretation Triglycerides LDL Cholesterol Direct HDL Cholesterol Free T4 PTH Intact Urine WBC (Auto) Urine Creatinine Salicylates Acetaminophen Crossmatch 03/20/19 03/21/19 03/21/19 21:55 04:26 04:26 WBC 37.8 H RBC Hgb Hct MCV MCH MCHC RDW 15.4 H Plt Count 36 L Lymph % (Auto) [place] % (Auto) Eos % (Auto) Lymph # [place] # Eos # Seg Neutrophils % Seg Neuts % (Manual) 93.0 H Lymphocytes % (Manual) 3.0 L Monocytes % (Manual) Nucleated RBC % 1.0 H Seg Neutrophils # 34.6 H Seg Neutrophils # Man 35.2 H Lymphocytes # (Manual) 1.1 L Monocytes # (Manual) PT INR D-Dimer Heparin Anti-Xa Level POC ABG pH ABG pH POC ABG pCO2 POC ABG pO2 ABG pO2 ABG HCO3 ABG O2 Saturation ABG Base Excess ABG Hemoglobin Oxyhemoglobin Sodium 131 L Potassium Chloride 90.7 L Carbon Dioxide 21 L BUN 69 H Creatinine 5.7 H Glucose 170 H POC Glucose 128 H Lactic Acid Calcium 6.1 L D Ionized Calcium Phosphorus Magnesium Iron TIBC Ferritin Total Bilirubin 9.50 H Direct Bilirubin AST 308 H ALT 124 H Alkaline Phosphatase 327 H Total Creatine Kinase 10076 H CK-MB (CK-2) Troponin T C-Reactive Protein Serum Total Protein Total Protein 5.7 L Albumin 2.6 L Nwoww-4-Sqecjggpy Nlocv-8-Gkxjwsemz PEP Interpretation Triglycerides LDL Cholesterol Direct HDL Cholesterol Free T4 PTH Intact Urine WBC (Auto) Urine Creatinine Salicylates Acetaminophen Crossmatch 03/21/19 03/21/19 03/21/19 05:17 05:39 08:29 WBC RBC Hgb Hct MCV MCH MCHC RDW Plt Count Lymph % (Auto) [place] % (Auto) Eos % (Auto) Lymph # [place] # Eos # Seg Neutrophils % Seg Neuts % (Manual) Lymphocytes % (Manual) Monocytes % (Manual) Nucleated RBC % Seg Neutrophils # Seg Neutrophils # Man Lymphocytes # (Manual) Monocytes # (Manual) PT INR D-Dimer Heparin Anti-Xa Level POC ABG pH ABG pH POC ABG pCO2 POC ABG pO2 209 H ABG pO2 ABG HCO3 ABG O2 Saturation ABG Base Excess ABG Hemoglobin Oxyhemoglobin Sodium Potassium Chloride Carbon Dioxide BUN Creatinine Glucose POC Glucose 145 H Lactic Acid Calcium Ionized Calcium Phosphorus Magnesium Iron TIBC Ferritin Total Bilirubin Direct Bilirubin AST ALT Alkaline Phosphatase Total Creatine Kinase 36174 H CK-MB (CK-2) Troponin T C-Reactive Protein Serum Total Protein Total Protein Albumin Qlrmp-4-Eknjyjxxl Qgxrc-2-Jluqnprpz PEP Interpretation Triglycerides LDL Cholesterol Direct HDL Cholesterol Free T4 PTH Intact Urine WBC (Auto) Urine Creatinine Salicylates Acetaminophen Crossmatch 03/21/19 03/21/19 03/21/19 08:29 11:43 12:00 WBC RBC Hgb Hct MCV MCH MCHC RDW Plt Count Lymph % (Auto) [place] % (Auto) Eos % (Auto) Lymph # [place] # Eos # Seg Neutrophils % Seg Neuts % (Manual) Lymphocytes % (Manual) Monocytes % (Manual) Nucleated RBC % Seg Neutrophils # Seg Neutrophils # Man Lymphocytes # (Manual) Monocytes # (Manual) PT INR D-Dimer Heparin Anti-Xa Level POC ABG pH ABG pH POC ABG pCO2 POC ABG pO2 ABG pO2 ABG HCO3 ABG O2 Saturation ABG Base Excess ABG Hemoglobin Oxyhemoglobin Sodium Potassium Chloride Carbon Dioxide BUN Creatinine Glucose POC Glucose 123 H Lactic Acid 2.60 H* 2.20 H* Calcium Ionized Calcium Phosphorus Magnesium Iron TIBC Ferritin Total Bilirubin Direct Bilirubin AST ALT Alkaline Phosphatase Total Creatine Kinase CK-MB (CK-2) Troponin T C-Reactive Protein Serum Total Protein Total Protein Albumin Uszos-3-Yhdnjlzmx Poink-1-Jskqqphsn PEP Interpretation Triglycerides LDL Cholesterol Direct HDL Cholesterol Free T4 PTH Intact Urine WBC (Auto) Urine Creatinine Salicylates Acetaminophen Crossmatch 03/21/19 03/21/19 03/21/19 14:11 18:28 19:32 WBC RBC Hgb Hct MCV MCH MCHC RDW Plt Count Lymph % (Auto) [place] % (Auto) Eos % (Auto) Lymph # [place] # Eos # Seg Neutrophils % Seg Neuts % (Manual) Lymphocytes % (Manual) Monocytes % (Manual) Nucleated RBC % Seg Neutrophils # Seg Neutrophils # Man Lymphocytes # (Manual) Monocytes # (Manual) PT INR D-Dimer Heparin Anti-Xa Level POC ABG pH 7.293 L ABG pH POC ABG pCO2 POC ABG pO2 ABG pO2 ABG HCO3 ABG O2 Saturation ABG Base Excess ABG Hemoglobin Oxyhemoglobin Sodium Potassium Chloride Carbon Dioxide BUN Creatinine Glucose POC Glucose 153 H Lactic Acid 2.10 H* Calcium Ionized Calcium Phosphorus Magnesium Iron TIBC Ferritin Total Bilirubin Direct Bilirubin AST ALT Alkaline Phosphatase Total Creatine Kinase CK-MB (CK-2) Troponin T C-Reactive Protein Serum Total Protein Total Protein Albumin Mmgut-5-Cqtylhuch Gdjfq-4-Nmvfjrtgp PEP Interpretation Triglycerides LDL Cholesterol Direct HDL Cholesterol Free T4 PTH Intact Urine WBC (Auto) Urine Creatinine Salicylates Acetaminophen Crossmatch 03/21/19 03/22/19 03/22/19 23:38 05:08 05:51 WBC RBC Hgb Hct MCV MCH MCHC RDW Plt Count Lymph % (Auto) [place] % (Auto) Eos % (Auto) Lymph # [place] # Eos # Seg Neutrophils % Seg Neuts % (Manual) Lymphocytes % (Manual) Monocytes % (Manual) Nucleated RBC % Seg Neutrophils # Seg Neutrophils # Man Lymphocytes # (Manual) Monocytes # (Manual) PT INR D-Dimer Heparin Anti-Xa Level POC ABG pH 7.283 L ABG pH POC ABG pCO2 POC ABG pO2 53 L ABG pO2 ABG HCO3 ABG O2 Saturation ABG Base Excess ABG Hemoglobin Oxyhemoglobin Sodium Potassium Chloride Carbon Dioxide BUN Creatinine Glucose POC Glucose 149 H 131 H Lactic Acid Calcium Ionized Calcium Phosphorus Magnesium Iron TIBC Ferritin Total Bilirubin Direct Bilirubin AST ALT Alkaline Phosphatase Total Creatine Kinase CK-MB (CK-2) Troponin T C-Reactive Protein Serum Total Protein Total Protein Albumin Abxqc-4-Sxhxentof Nboyb-8-Xwizdvybz PEP Interpretation Triglycerides LDL Cholesterol Direct HDL Cholesterol Free T4 PTH Intact Urine WBC (Auto) Urine Creatinine Salicylates Acetaminophen Crossmatch 03/22/19 03/22/19 03/22/19 08:00 08:00 18:19 WBC 36.7 H RBC Hgb 11.0 L Hct 33.5 L MCV MCH MCHC RDW 15.5 H Plt Count 43 L Lymph % (Auto) [place] % (Auto) Eos % (Auto) Lymph # [place] # Eos # Seg Neutrophils % Seg Neuts % (Manual) 87.0 H Lymphocytes % (Manual) 7.0 L Monocytes % (Manual) Nucleated RBC % Seg Neutrophils # Seg Neutrophils # Man 31.9 H Lymphocytes # (Manual) Monocytes # (Manual) PT INR D-Dimer Heparin Anti-Xa Level POC ABG pH ABG pH POC ABG pCO2 46.4 H POC ABG pO2 108 H ABG pO2 ABG HCO3 ABG O2 Saturation ABG Base Excess ABG Hemoglobin Oxyhemoglobin Sodium 132 L Potassium 5.6 H Chloride 89.6 L Carbon Dioxide 20 L BUN 101 H Creatinine 7.4 H Glucose 124 H POC Glucose Lactic Acid Calcium 5.2 L* Ionized Calcium Phosphorus Magnesium Iron TIBC Ferritin Total Bilirubin 2.80 H Direct Bilirubin AST 119 H ALT 86 H Alkaline Phosphatase 245 H Total Creatine Kinase CK-MB (CK-2) Troponin T C-Reactive Protein Serum Total Protein Total Protein 5.6 L Albumin 2.5 L Aztbp-6-Ptgsllhxz Swntl-5-Pyyklfisn PEP Interpretation Triglycerides LDL Cholesterol Direct HDL Cholesterol Free T4 PTH Intact Urine WBC (Auto) Urine Creatinine Salicylates Acetaminophen Crossmatch 03/22/19 03/23/19 03/23/19 20:37 04:49 05:28 WBC 35.9 H RBC Hgb 10.8 L Hct 33.2 L MCV MCH MCHC RDW 15.5 H Plt Count 49 L Lymph % (Auto) [place] % (Auto) Eos % (Auto) Lymph # [place] # Eos # Seg Neutrophils % Seg Neuts % (Manual) 81.0 H Lymphocytes % (Manual) 3.5 L Monocytes % (Manual) Nucleated RBC % Seg Neutrophils # Seg Neutrophils # Man 29.1 H Lymphocytes # (Manual) Monocytes # (Manual) 1.4 H PT INR D-Dimer Heparin Anti-Xa Level POC ABG pH 7.296 L ABG pH POC ABG pCO2 46.2 H POC ABG pO2 ABG pO2 ABG HCO3 ABG O2 Saturation ABG Base Excess ABG Hemoglobin Oxyhemoglobin Sodium 129 L Potassium 5.2 H Chloride 91.1 L Carbon Dioxide BUN 91 H Creatinine 6.6 H Glucose 190 H POC Glucose Lactic Acid Calcium 5.3 L* Ionized Calcium Phosphorus Magnesium Iron TIBC Ferritin Total Bilirubin 1.80 H Direct Bilirubin AST 80 H ALT 62 H Alkaline Phosphatase 209 H Total Creatine Kinase 9758 H CK-MB (CK-2) Troponin T C-Reactive Protein Serum Total Protein Total Protein 5.2 L Albumin 2.2 L Gsrit-1-Mislqzfcy Bwpvv-7-Kspthvewg PEP Interpretation Triglycerides LDL Cholesterol Direct HDL Cholesterol Free T4 PTH Intact Urine WBC (Auto) Urine Creatinine Salicylates Acetaminophen Crossmatch 03/23/19 03/23/19 03/23/19 05:28 05:31 11:33 WBC 29.7 H RBC 3.59 L Hgb 10.1 L Hct 31.1 L MCV MCH MCHC RDW 15.4 H Plt Count 47 L Lymph % (Auto) [place] % (Auto) Eos % (Auto) Lymph # [place] # Eos # Seg Neutrophils % Seg Neuts % (Manual) 89.0 H Lymphocytes % (Manual) 6.0 L Monocytes % (Manual) Nucleated RBC % 1.0 H Seg Neutrophils # Seg Neutrophils # Man 26.4 H Lymphocytes # (Manual) Monocytes # (Manual) PT INR D-Dimer Heparin Anti-Xa Level POC ABG pH ABG pH POC ABG pCO2 POC ABG pO2 ABG pO2 ABG HCO3 ABG O2 Saturation ABG Base Excess ABG Hemoglobin Oxyhemoglobin Sodium Potassium Chloride Carbon Dioxide BUN Creatinine Glucose POC Glucose 122 H 113 H Lactic Acid Calcium Ionized Calcium Phosphorus Magnesium Iron TIBC Ferritin Total Bilirubin Direct Bilirubin AST ALT Alkaline Phosphatase Total Creatine Kinase CK-MB (CK-2) Troponin T C-Reactive Protein Serum Total Protein Total Protein Albumin Vlupm-4-Oladcakcf Eovhf-8-Ychlspbvk PEP Interpretation Triglycerides LDL Cholesterol Direct HDL Cholesterol Free T4 PTH Intact Urine WBC (Auto) Urine Creatinine Salicylates Acetaminophen Crossmatch 03/23/19 03/24/19 03/24/19 17:47 00:00 04:50 WBC 35.0 H RBC Hgb 10.4 L Hct 32.4 L MCV MCH MCHC RDW Plt Count 60 L Lymph % (Auto) [place] % (Auto) Eos % (Auto) Lymph # [place] # Eos # Seg Neutrophils % Seg Neuts % (Manual) 93.0 H Lymphocytes % (Manual) 5.0 L Monocytes % (Manual) Nucleated RBC % 7.0 H Seg Neutrophils # Seg Neutrophils # Man 32.6 H Lymphocytes # (Manual) Monocytes # (Manual) PT INR D-Dimer Heparin Anti-Xa Level POC ABG pH ABG pH POC ABG pCO2 POC ABG pO2 ABG pO2 ABG HCO3 ABG O2 Saturation ABG Base Excess ABG Hemoglobin Oxyhemoglobin Sodium Potassium Chloride Carbon Dioxide BUN Creatinine Glucose POC Glucose 111 H 108 H Lactic Acid Calcium Ionized Calcium Phosphorus Magnesium Iron TIBC Ferritin Total Bilirubin Direct Bilirubin AST ALT Alkaline Phosphatase Total Creatine Kinase CK-MB (CK-2) Troponin T C-Reactive Protein Serum Total Protein Total Protein Albumin Nihao-1-Fquohoqpq Udrls-5-Mfbldctch PEP Interpretation Triglycerides LDL Cholesterol Direct HDL Cholesterol Free T4 PTH Intact Urine WBC (Auto) Urine Creatinine Salicylates Acetaminophen Crossmatch 03/24/19 03/24/19 03/24/19 04:50 05:06 12:55 WBC RBC Hgb Hct MCV MCH MCHC RDW Plt Count Lymph % (Auto) [place] % (Auto) Eos % (Auto) Lymph # [place] # Eos # Seg Neutrophils % Seg Neuts % (Manual) Lymphocytes % (Manual) Monocytes % (Manual) Nucleated RBC % Seg Neutrophils # Seg Neutrophils # Man Lymphocytes # (Manual) Monocytes # (Manual) PT INR D-Dimer Heparin Anti-Xa Level POC ABG pH ABG pH POC ABG pCO2 POC ABG pO2 ABG pO2 ABG HCO3 ABG O2 Saturation ABG Base Excess ABG Hemoglobin Oxyhemoglobin Sodium 134 L Potassium 5.1 H Chloride 95.3 L Carbon Dioxide 21 L BUN 85 H Creatinine 6.4 H Glucose 109 H POC Glucose 112 H 110 H Lactic Acid Calcium 5.8 L* Ionized Calcium Phosphorus Magnesium Iron TIBC Ferritin Total Bilirubin Direct Bilirubin AST ALT Alkaline Phosphatase Total Creatine Kinase 5747 H CK-MB (CK-2) Troponin T C-Reactive Protein Serum Total Protein Total Protein Albumin Quswy-2-Bvllhyyyk Tayti-2-Mtvimxcyq PEP Interpretation Triglycerides LDL Cholesterol Direct HDL Cholesterol Free T4 PTH Intact Urine WBC (Auto) Urine Creatinine Salicylates Acetaminophen Crossmatch 03/24/19 03/25/19 03/25/19 23:29 05:00 05:00 WBC RBC Hgb Hct MCV MCH MCHC RDW Plt Count Lymph % (Auto) [place] % (Auto) Eos % (Auto) Lymph # [place] # Eos # Seg Neutrophils % Seg Neuts % (Manual) Lymphocytes % (Manual) Monocytes % (Manual) Nucleated RBC % Seg Neutrophils # Seg Neutrophils # Man Lymphocytes # (Manual) Monocytes # (Manual) PT INR D-Dimer Heparin Anti-Xa Level POC ABG pH ABG pH POC ABG pCO2 POC ABG pO2 ABG pO2 ABG HCO3 ABG O2 Saturation ABG Base Excess ABG Hemoglobin Oxyhemoglobin Sodium 133 L Potassium Chloride 94.0 L Carbon Dioxide 21 L BUN 81 H Creatinine 6.4 H Glucose POC Glucose 109 H Lactic Acid Calcium 5.5 L* Ionized Calcium Phosphorus Magnesium Iron TIBC Ferritin Total Bilirubin Direct Bilirubin AST 80 H ALT Alkaline Phosphatase 202 H Total Creatine Kinase 3589 H CK-MB (CK-2) Troponin T C-Reactive Protein Serum Total Protein Total Protein 5.3 L Albumin 2.4 L Gkhib-6-Yymuqjorb Qzgfx-8-Idxmiryar PEP Interpretation Triglycerides LDL Cholesterol Direct HDL Cholesterol Free T4 PTH Intact 329.9 H Urine WBC (Auto) Urine Creatinine Salicylates Acetaminophen Crossmatch 03/25/19 03/25/19 03/26/19 05:00 06:30 04:30 WBC 23.3 H RBC 3.61 L Hgb 10.2 L Hct 31.2 L MCV MCH MCHC RDW Plt Count 57 L Lymph % (Auto) [place] % (Auto) Eos % (Auto) Lymph # [place] # Eos # Seg Neutrophils % Seg Neuts % (Manual) 92.0 H Lymphocytes % (Manual) 6.0 L Monocytes % (Manual) Nucleated RBC % Seg Neutrophils # Seg Neutrophils # Man 21.4 H Lymphocytes # (Manual) Monocytes # (Manual) PT INR D-Dimer Heparin Anti-Xa Level POC ABG pH ABG pH 7.326 L POC ABG pCO2 POC ABG pO2 ABG pO2 109.5 H 137.4 H ABG HCO3 18.8 L 18.6 L ABG O2 Saturation ABG Base Excess -4.4 L -6.8 L ABG Hemoglobin 10.1 L 9.9 L Oxyhemoglobin Sodium Potassium Chloride Carbon Dioxide BUN Creatinine Glucose POC Glucose Lactic Acid Calcium Ionized Calcium Phosphorus Magnesium Iron TIBC Ferritin Total Bilirubin Direct Bilirubin AST ALT Alkaline Phosphatase Total Creatine Kinase CK-MB (CK-2) Troponin T C-Reactive Protein Serum Total Protein Total Protein Albumin Pzyaa-7-Vdezidxqa Bvckp-8-Npjvsrrwf PEP Interpretation Triglycerides LDL Cholesterol Direct HDL Cholesterol Free T4 PTH Intact Urine WBC (Auto) Urine Creatinine Salicylates Acetaminophen Crossmatch 03/26/19 03/26/19 03/26/19 23:22 Unknown Unknown WBC 19.5 H RBC 3.44 L Hgb 9.8 L Hct 29.9 L MCV MCH MCHC RDW Plt Count 85 L Lymph % (Auto) [place] % (Auto) Eos % (Auto) Lymph # [place] # Eos # Seg Neutrophils % Seg Neuts % (Manual) 95.0 H Lymphocytes % (Manual) 3.0 L Monocytes % (Manual) Nucleated RBC % Seg Neutrophils # Seg Neutrophils # Man 18.5 H Lymphocytes # (Manual) 0.6 L Monocytes # (Manual) PT INR D-Dimer Heparin Anti-Xa Level POC ABG pH ABG pH POC ABG pCO2 POC ABG pO2 ABG pO2 ABG HCO3 ABG O2 Saturation ABG Base Excess ABG Hemoglobin Oxyhemoglobin Sodium 135 L Potassium 5.2 H D Chloride 92.2 L Carbon Dioxide 18 L BUN 109 H Creatinine 8.5 H Glucose 117 H POC Glucose 69 L Lactic Acid Calcium 4.5 L* D Ionized Calcium Phosphorus Magnesium Iron TIBC Ferritin Total Bilirubin Direct Bilirubin AST ALT Alkaline Phosphatase Total Creatine Kinase 4527 H CK-MB (CK-2) Troponin T C-Reactive Protein Serum Total Protein Total Protein Albumin Meaos-7-Xincbiwhy Kthxf-6-Tpprtbbrw PEP Interpretation Triglycerides LDL Cholesterol Direct HDL Cholesterol Free T4 PTH Intact Urine WBC (Auto) Urine Creatinine Salicylates Acetaminophen Crossmatch 03/27/19 03/27/19 03/27/19 04:30 04:30 09:00 WBC 19.2 H RBC 3.42 L Hgb 9.9 L Hct 30.0 L MCV MCH MCHC RDW Plt Count 84 L Lymph % (Auto) [place] % (Auto) Eos % (Auto) Lymph # [place] # Eos # Seg Neutrophils % Seg Neuts % (Manual) Lymphocytes % (Manual) Monocytes % (Manual) Nucleated RBC % Seg Neutrophils # Seg Neutrophils # Man Lymphocytes # (Manual) Monocytes # (Manual) PT INR D-Dimer Heparin Anti-Xa Level POC ABG pH ABG pH POC ABG pCO2 POC ABG pO2 ABG pO2 ABG HCO3 ABG O2 Saturation ABG Base Excess ABG Hemoglobin Oxyhemoglobin Sodium 135 L Potassium Chloride 93.5 L Carbon Dioxide BUN 84 H Creatinine 7.1 H Glucose POC Glucose Lactic Acid Calcium 5.0 L* Ionized Calcium Phosphorus Magnesium Iron TIBC Ferritin Total Bilirubin Direct Bilirubin AST 78 H ALT Alkaline Phosphatase 135 H Total Creatine Kinase 4677 H CK-MB (CK-2) Troponin T C-Reactive Protein Serum Total Protein Total Protein 4.8 L Albumin 2.3 L Mnccn-7-Ojtocpxdq Voauc-3-Cvkghncum PEP Interpretation Triglycerides 409 H LDL Cholesterol Direct HDL Cholesterol Free T4 PTH Intact Urine WBC (Auto) Urine Creatinine Salicylates Acetaminophen Crossmatch 03/27/19 03/27/19 03/27/19 12:37 14:15 14:15 WBC RBC Hgb 9.7 L Hct 29.5 L MCV MCH MCHC RDW Plt Count 87 L Lymph % (Auto) [place] % (Auto) Eos % (Auto) Lymph # [place] # Eos # Seg Neutrophils % Seg Neuts % (Manual) Lymphocytes % (Manual) Monocytes % (Manual) Nucleated RBC % Seg Neutrophils # Seg Neutrophils # Man Lymphocytes # (Manual) Monocytes # (Manual) PT 15.9 H INR 1.30 H D-Dimer Heparin Anti-Xa Level POC ABG pH ABG pH POC ABG pCO2 POC ABG pO2 ABG pO2 ABG HCO3 ABG O2 Saturation ABG Base Excess ABG Hemoglobin Oxyhemoglobin Sodium Potassium Chloride Carbon Dioxide BUN Creatinine Glucose POC Glucose 129 H Lactic Acid Calcium Ionized Calcium Phosphorus Magnesium Iron TIBC Ferritin Total Bilirubin Direct Bilirubin AST ALT Alkaline Phosphatase Total Creatine Kinase CK-MB (CK-2) Troponin T C-Reactive Protein Serum Total Protein Total Protein Albumin Tndfi-1-Ncqmaykmg Jzanu-0-Ogzudplme PEP Interpretation Triglycerides LDL Cholesterol Direct HDL Cholesterol Free T4 PTH Intact Urine WBC (Auto) Urine Creatinine Salicylates Acetaminophen Crossmatch 03/27/19 03/27/19 03/27/19 18:00 19:22 19:23 WBC RBC Hgb Hct MCV MCH MCHC RDW Plt Count Lymph % (Auto) [place] % (Auto) Eos % (Auto) Lymph # [place] # Eos # Seg Neutrophils % Seg Neuts % (Manual) Lymphocytes % (Manual) Monocytes % (Manual) Nucleated RBC % Seg Neutrophils # Seg Neutrophils # Man Lymphocytes # (Manual) Monocytes # (Manual) PT INR D-Dimer Heparin Anti-Xa Level < 0.10 L POC ABG pH ABG pH POC ABG pCO2 POC ABG pO2 ABG pO2 ABG HCO3 ABG O2 Saturation ABG Base Excess ABG Hemoglobin Oxyhemoglobin Sodium Potassium Chloride Carbon Dioxide BUN Creatinine Glucose POC Glucose 121 H Lactic Acid Calcium Ionized Calcium Phosphorus Magnesium Iron TIBC Ferritin Total Bilirubin Direct Bilirubin AST ALT Alkaline Phosphatase Total Creatine Kinase 4517 H CK-MB (CK-2) Troponin T C-Reactive Protein Serum Total Protein Total Protein Albumin Ehwfz-6-Nvhqhfhrh Axlxw-7-Oznuhjdjw PEP Interpretation Triglycerides LDL Cholesterol Direct HDL Cholesterol Free T4 PTH Intact Urine WBC (Auto) Urine Creatinine Salicylates Acetaminophen Crossmatch 03/27/19 03/27/19 03/28/19 22:10 23:52 03:49 WBC RBC Hgb Hct MCV MCH MCHC RDW Plt Count Lymph % (Auto) [place] % (Auto) Eos % (Auto) Lymph # [place] # Eos # Seg Neutrophils % Seg Neuts % (Manual) Lymphocytes % (Manual) Monocytes % (Manual) Nucleated RBC % Seg Neutrophils # Seg Neutrophils # Man Lymphocytes # (Manual) Monocytes # (Manual) PT INR D-Dimer Heparin Anti-Xa Level POC ABG pH 7.338 L ABG pH POC ABG pCO2 33.1 L POC ABG pO2 ABG pO2 ABG HCO3 ABG O2 Saturation ABG Base Excess ABG Hemoglobin Oxyhemoglobin Sodium Potassium Chloride Carbon Dioxide BUN Creatinine Glucose POC Glucose 113 H 117 H Lactic Acid Calcium Ionized Calcium Phosphorus Magnesium Iron TIBC Ferritin Total Bilirubin Direct Bilirubin AST ALT Alkaline Phosphatase Total Creatine Kinase CK-MB (CK-2) Troponin T C-Reactive Protein Serum Total Protein Total Protein Albumin Xgylu-4-Sknejnwng Mbftw-5-Oafovcmov PEP Interpretation Triglycerides LDL Cholesterol Direct HDL Cholesterol Free T4 PTH Intact Urine WBC (Auto) Urine Creatinine Salicylates Acetaminophen Crossmatch 03/28/19 03/28/19 03/28/19 05:13 05:13 06:18 WBC RBC Hgb Hct MCV MCH MCHC RDW Plt Count Lymph % (Auto) [place] % (Auto) Eos % (Auto) Lymph # [place] # Eos # Seg Neutrophils % Seg Neuts % (Manual) Lymphocytes % (Manual) Monocytes % (Manual) Nucleated RBC % Seg Neutrophils # Seg Neutrophils # Man Lymphocytes # (Manual) Monocytes # (Manual) PT INR D-Dimer Heparin Anti-Xa Level 0.23 L POC ABG pH ABG pH POC ABG pCO2 POC ABG pO2 ABG pO2 ABG HCO3 ABG O2 Saturation ABG Base Excess ABG Hemoglobin Oxyhemoglobin Sodium 135 L Potassium 5.5 H D Chloride 95.1 L Carbon Dioxide 16 L D BUN 129 H Creatinine 9.3 H Glucose 158 H POC Glucose 202 H Lactic Acid Calcium 4.0 L* D Ionized Calcium Phosphorus 12.40 H Magnesium Iron TIBC Ferritin Total Bilirubin Direct Bilirubin AST ALT Alkaline Phosphatase Total Creatine Kinase 4266 H CK-MB (CK-2) Troponin T C-Reactive Protein Serum Total Protein Total Protein Albumin Noqat-8-Nyziyyhrh Lgkqg-1-Ljkjihxfl PEP Interpretation Triglycerides LDL Cholesterol Direct HDL Cholesterol Free T4 PTH Intact Urine WBC (Auto) Urine Creatinine Salicylates Acetaminophen Crossmatch 03/28/19 03/28/19 03/28/19 08:25 10:00 12:00 WBC RBC Hgb 4.9 L* D Hct 15.4 L* D MCV MCH MCHC RDW Plt Count Lymph % (Auto) [place] % (Auto) Eos % (Auto) Lymph # [place] # Eos # Seg Neutrophils % Seg Neuts % (Manual) Lymphocytes % (Manual) Monocytes % (Manual) Nucleated RBC % Seg Neutrophils # Seg Neutrophils # Man Lymphocytes # (Manual) Monocytes # (Manual) PT 17.9 H INR 1.52 H D-Dimer 4845.98 H Heparin Anti-Xa Level POC ABG pH ABG pH POC ABG pCO2 POC ABG pO2 ABG pO2 ABG HCO3 ABG O2 Saturation ABG Base Excess ABG Hemoglobin Oxyhemoglobin Sodium Potassium Chloride Carbon Dioxide BUN Creatinine Glucose POC Glucose Lactic Acid Calcium Ionized Calcium Phosphorus Magnesium Iron TIBC Ferritin Total Bilirubin Direct Bilirubin AST ALT Alkaline Phosphatase Total Creatine Kinase CK-MB (CK-2) Troponin T C-Reactive Protein Serum Total Protein Total Protein Albumin Ncbew-1-Nyllxzvmf Djykc-4-Eywihttjr PEP Interpretation Triglycerides LDL Cholesterol Direct HDL Cholesterol Free T4 PTH Intact Urine WBC (Auto) Urine Creatinine Salicylates Acetaminophen Crossmatch See Detail 03/28/19 03/28/19 03/28/19 12:28 14:10 17:43 WBC RBC Hgb 5.9 L* Hct 18.3 L* MCV MCH MCHC RDW Plt Count Lymph % (Auto) [place] % (Auto) Eos % (Auto) Lymph # [place] # Eos # Seg Neutrophils % Seg Neuts % (Manual) Lymphocytes % (Manual) Monocytes % (Manual) Nucleated RBC % Seg Neutrophils # Seg Neutrophils # Man Lymphocytes # (Manual) Monocytes # (Manual) PT INR D-Dimer Heparin Anti-Xa Level POC ABG pH ABG pH POC ABG pCO2 POC ABG pO2 ABG pO2 ABG HCO3 ABG O2 Saturation ABG Base Excess ABG Hemoglobin Oxyhemoglobin Sodium Potassium Chloride Carbon Dioxide BUN Creatinine Glucose POC Glucose 153 H 159 H Lactic Acid Calcium Ionized Calcium Phosphorus Magnesium Iron TIBC Ferritin Total Bilirubin Direct Bilirubin AST ALT Alkaline Phosphatase Total Creatine Kinase CK-MB (CK-2) Troponin T C-Reactive Protein Serum Total Protein Total Protein Albumin Nbaub-2-Abefobhrq Qjzjz-4-Kgwsnxmrh PEP Interpretation Triglycerides LDL Cholesterol Direct HDL Cholesterol Free T4 PTH Intact Urine WBC (Auto) Urine Creatinine Salicylates Acetaminophen Crossmatch 03/28/19 03/28/19 03/28/19 18:10 Unknown 23:59 WBC 24.8 H RBC 3.42 L Hgb 10.2 L D Hct 31.1 L D MCV MCH MCHC RDW 15.4 H Plt Count 54 L Lymph % (Auto) [place] % (Auto) Eos % (Auto) Lymph # [place] # Eos # Seg Neutrophils % Seg Neuts % (Manual) 91.0 H Lymphocytes % (Manual) 8.0 L Monocytes % (Manual) Nucleated RBC % Seg Neutrophils # Seg Neutrophils # Man 22.6 H Lymphocytes # (Manual) Monocytes # (Manual) PT INR D-Dimer Heparin Anti-Xa Level POC ABG pH ABG pH POC ABG pCO2 POC ABG pO2 ABG pO2 ABG HCO3 ABG O2 Saturation ABG Base Excess ABG Hemoglobin Oxyhemoglobin Sodium Potassium 5.7 H Chloride Carbon Dioxide BUN Creatinine Glucose POC Glucose 107 H Lactic Acid Calcium Ionized Calcium Phosphorus Magnesium Iron TIBC Ferritin Total Bilirubin Direct Bilirubin AST ALT Alkaline Phosphatase Total Creatine Kinase CK-MB (CK-2) Troponin T C-Reactive Protein Serum Total Protein Total Protein Albumin Szzxs-1-Ipymgsswn Jwyim-1-Attenxnvx PEP Interpretation Triglycerides LDL Cholesterol Direct HDL Cholesterol Free T4 PTH Intact Urine WBC (Auto) Urine Creatinine Salicylates Acetaminophen Crossmatch 03/29/19 03/29/19 03/29/19 04:29 05:46 06:22 WBC RBC Hgb 8.6 L Hct 25.7 L MCV MCH MCHC RDW Plt Count 93 L Lymph % (Auto) [place] % (Auto) Eos % (Auto) Lymph # [place] # Eos # Seg Neutrophils % Seg Neuts % (Manual) Lymphocytes % (Manual) Monocytes % (Manual) Nucleated RBC % Seg Neutrophils # Seg Neutrophils # Man Lymphocytes # (Manual) Monocytes # (Manual) PT INR D-Dimer Heparin Anti-Xa Level POC ABG pH ABG pH POC ABG pCO2 32.2 L POC ABG pO2 ABG pO2 ABG HCO3 ABG O2 Saturation ABG Base Excess ABG Hemoglobin Oxyhemoglobin Sodium Potassium Chloride Carbon Dioxide BUN Creatinine Glucose POC Glucose 113 H Lactic Acid Calcium Ionized Calcium Phosphorus Magnesium Iron TIBC Ferritin Total Bilirubin Direct Bilirubin AST ALT Alkaline Phosphatase Total Creatine Kinase CK-MB (CK-2) Troponin T C-Reactive Protein Serum Total Protein Total Protein Albumin Qmwti-9-Knniedmhy Uxfvv-7-Ujnlpsvqv PEP Interpretation Triglycerides LDL Cholesterol Direct HDL Cholesterol Free T4 PTH Intact Urine WBC (Auto) Urine Creatinine Salicylates Acetaminophen Crossmatch 03/29/19 03/29/19 03/29/19 06:22 06:22 06:22 WBC 23.2 H RBC 2.91 L Hgb 8.6 L Hct 25.8 L MCV MCH MCHC RDW Plt Count 91 L Lymph % (Auto) [place] % (Auto) Eos % (Auto) Lymph # [place] # Eos # Seg Neutrophils % Seg Neuts % (Manual) Lymphocytes % (Manual) Monocytes % (Manual) Nucleated RBC % Seg Neutrophils # Seg Neutrophils # Man Lymphocytes # (Manual) Monocytes # (Manual) PT INR D-Dimer Heparin Anti-Xa Level POC ABG pH ABG pH POC ABG pCO2 POC ABG pO2 ABG pO2 ABG HCO3 ABG O2 Saturation ABG Base Excess ABG Hemoglobin Oxyhemoglobin Sodium 133 L Potassium Chloride 93.8 L Carbon Dioxide 18 L BUN 109 H Creatinine 7.4 H Glucose 124 H POC Glucose Lactic Acid Calcium 4.6 L* Ionized Calcium Phosphorus Magnesium Iron TIBC Ferritin Total Bilirubin Direct Bilirubin AST ALT Alkaline Phosphatase Total Creatine Kinase 3401 H CK-MB (CK-2) Troponin T C-Reactive Protein Serum Total Protein Total Protein Albumin Hutzn-2-Fzvgiiexp Moymr-6-Pktynjkej PEP Interpretation Triglycerides 309 H LDL Cholesterol Direct HDL Cholesterol Free T4 PTH Intact Urine WBC (Auto) Urine Creatinine Salicylates Acetaminophen Crossmatch 03/29/19 03/29/19 03/29/19 11:48 11:48 18:24 WBC RBC Hgb 7.8 L Hct 23.2 L MCV MCH MCHC RDW Plt Count Lymph % (Auto) [place] % (Auto) Eos % (Auto) Lymph # [place] # Eos # Seg Neutrophils % Seg Neuts % (Manual) Lymphocytes % (Manual) Monocytes % (Manual) Nucleated RBC % Seg Neutrophils # Seg Neutrophils # Man Lymphocytes # (Manual) Monocytes # (Manual) PT 15.3 H INR 1.24 H D-Dimer Heparin Anti-Xa Level POC ABG pH ABG pH POC ABG pCO2 POC ABG pO2 ABG pO2 ABG HCO3 ABG O2 Saturation ABG Base Excess ABG Hemoglobin Oxyhemoglobin Sodium Potassium Chloride Carbon Dioxide BUN Creatinine Glucose POC Glucose 122 H Lactic Acid Calcium Ionized Calcium Phosphorus Magnesium Iron TIBC Ferritin Total Bilirubin Direct Bilirubin AST ALT Alkaline Phosphatase Total Creatine Kinase CK-MB (CK-2) Troponin T C-Reactive Protein Serum Total Protein Total Protein Albumin Nhkfi-1-Wonvrrquz Fceak-1-Qlurzjomv PEP Interpretation Triglycerides LDL Cholesterol Direct HDL Cholesterol Free T4 PTH Intact Urine WBC (Auto) Urine Creatinine Salicylates Acetaminophen Crossmatch 03/30/19 03/30/19 03/30/19 00:40 04:31 05:04 WBC RBC Hgb 7.6 L Hct 23.0 L MCV MCH MCHC RDW Plt Count Lymph % (Auto) [place] % (Auto) Eos % (Auto) Lymph # [place] # Eos # Seg Neutrophils % Seg Neuts % (Manual) Lymphocytes % (Manual) Monocytes % (Manual) Nucleated RBC % Seg Neutrophils # Seg Neutrophils # Man Lymphocytes # (Manual) Monocytes # (Manual) PT INR D-Dimer Heparin Anti-Xa Level POC ABG pH 7.346 L ABG pH POC ABG pCO2 POC ABG pO2 62 L ABG pO2 ABG HCO3 ABG O2 Saturation ABG Base Excess ABG Hemoglobin Oxyhemoglobin Sodium Potassium Chloride Carbon Dioxide BUN 79 H Creatinine 6.4 H Glucose POC Glucose Lactic Acid Calcium 6.1 L D Ionized Calcium Phosphorus Magnesium Iron TIBC Ferritin Total Bilirubin Direct Bilirubin AST ALT Alkaline Phosphatase Total Creatine Kinase CK-MB (CK-2) Troponin T C-Reactive Protein Serum Total Protein Total Protein Albumin Tosiy-3-Ybsxzntdy Zbppb-8-Vjlxbazdc PEP Interpretation Triglycerides LDL Cholesterol Direct HDL Cholesterol Free T4 PTH Intact Urine WBC (Auto) Urine Creatinine Salicylates Acetaminophen Crossmatch 03/30/19 03/30/19 03/30/19 08:45 12:09 22:43 WBC 14.3 H RBC 2.33 L Hgb 7.0 L 7.4 L Hct 21.0 L 22.3 L MCV MCH MCHC RDW 15.6 H Plt Count 135 L Lymph % (Auto) [place] % (Auto) Eos % (Auto) Lymph # [place] # Eos # Seg Neutrophils % Seg Neuts % (Manual) Lymphocytes % (Manual) Monocytes % (Manual) Nucleated RBC % Seg Neutrophils # Seg Neutrophils # Man Lymphocytes # (Manual) Monocytes # (Manual) PT INR D-Dimer Heparin Anti-Xa Level POC ABG pH ABG pH POC ABG pCO2 POC ABG pO2 ABG pO2 ABG HCO3 ABG O2 Saturation ABG Base Excess ABG Hemoglobin Oxyhemoglobin Sodium Potassium Chloride Carbon Dioxide BUN Creatinine Glucose POC Glucose Lactic Acid Calcium Ionized Calcium 3.7 L Phosphorus Magnesium Iron TIBC Ferritin Total Bilirubin Direct Bilirubin AST ALT Alkaline Phosphatase Total Creatine Kinase CK-MB (CK-2) Troponin T C-Reactive Protein Serum Total Protein Total Protein Albumin Dqgdy-8-Vtqehwdnq Hcpnm-1-Fruzlqhob PEP Interpretation Triglycerides LDL Cholesterol Direct HDL Cholesterol Free T4 PTH Intact Urine WBC (Auto) Urine Creatinine Salicylates Acetaminophen Crossmatch 03/30/19 03/30/19 03/31/19 23:38 Unknown 04:44 WBC 11.5 H RBC 2.40 L Hgb 7.3 L Hct 21.9 L MCV MCH MCHC RDW 15.4 H Plt Count Lymph % (Auto) 10.6 L [place] % (Auto) Eos % (Auto) Lymph # [place] # Eos # Seg Neutrophils % 81.7 H Seg Neuts % (Manual) Lymphocytes % (Manual) Monocytes % (Manual) Nucleated RBC % Seg Neutrophils # 9.4 H Seg Neutrophils # Man Lymphocytes # (Manual) Monocytes # (Manual) PT INR D-Dimer Heparin Anti-Xa Level POC ABG pH ABG pH POC ABG pCO2 POC ABG pO2 ABG pO2 ABG HCO3 ABG O2 Saturation ABG Base Excess ABG Hemoglobin Oxyhemoglobin Sodium Potassium Chloride Carbon Dioxide BUN Creatinine Glucose POC Glucose 155 H Lactic Acid Calcium Ionized Calcium Phosphorus Magnesium Iron TIBC Ferritin Total Bilirubin Direct Bilirubin 0.4 H AST 63 H ALT Alkaline Phosphatase Total Creatine Kinase CK-MB (CK-2) Troponin T C-Reactive Protein Serum Total Protein Total Protein 4.9 L Albumin 2.2 L Hqwll-6-Rfdwzumnk Rphyw-1-Ekggtujnd PEP Interpretation Triglycerides LDL Cholesterol Direct HDL Cholesterol Free T4 PTH Intact Urine WBC (Auto) Urine Creatinine Salicylates Acetaminophen Crossmatch 03/31/19 03/31/19 03/31/19 04:44 05:44 08:20 WBC RBC Hgb Hct MCV MCH MCHC RDW Plt Count Lymph % (Auto) [place] % (Auto) Eos % (Auto) Lymph # [place] # Eos # Seg Neutrophils % Seg Neuts % (Manual) Lymphocytes % (Manual) Monocytes % (Manual) Nucleated RBC % Seg Neutrophils # Seg Neutrophils # Man Lymphocytes # (Manual) Monocytes # (Manual) PT INR D-Dimer Heparin Anti-Xa Level POC ABG pH ABG pH POC ABG pCO2 53.5 H POC ABG pO2 62 L ABG pO2 ABG HCO3 ABG O2 Saturation ABG Base Excess ABG Hemoglobin Oxyhemoglobin Sodium 135 L Potassium Chloride 96.7 L Carbon Dioxide 19 L BUN 94 H Creatinine 7.8 H Glucose POC Glucose Lactic Acid Calcium 5.3 L* Ionized Calcium Phosphorus 8.20 H Magnesium Iron TIBC Ferritin Total Bilirubin Direct Bilirubin 0.4 H AST 60 H ALT Alkaline Phosphatase Total Creatine Kinase CK-MB (CK-2) Troponin T C-Reactive Protein Serum Total Protein Total Protein 4.8 L Albumin 2.1 L Hpdty-4-Smbpqydgm Yfyrr-5-Ltwgkaykz PEP Interpretation Triglycerides LDL Cholesterol Direct HDL Cholesterol Free T4 PTH Intact Urine WBC (Auto) Urine Creatinine Salicylates Acetaminophen Crossmatch 03/31/19 04/01/19 04/01/19 22:14 04:27 04:27 WBC RBC 2.60 L Hgb 8.0 L Hct 24.1 L MCV MCH MCHC RDW 15.7 H Plt Count Lymph % (Auto) 7.9 L [place] % (Auto) Eos % (Auto) Lymph # 0.7 L [place] # Eos # Seg Neutrophils % 83.6 H Seg Neuts % (Manual) Lymphocytes % (Manual) Monocytes % (Manual) Nucleated RBC % Seg Neutrophils # Seg Neutrophils # Man Lymphocytes # (Manual) Monocytes # (Manual) PT INR D-Dimer Heparin Anti-Xa Level POC ABG pH 7.286 L ABG pH POC ABG pCO2 54.7 H POC ABG pO2 179 H ABG pO2 ABG HCO3 ABG O2 Saturation ABG Base Excess ABG Hemoglobin Oxyhemoglobin Sodium Potassium Chloride Carbon Dioxide BUN 68 H Creatinine 6.6 H Glucose POC Glucose Lactic Acid Calcium 6.5 L D Ionized Calcium Phosphorus 7.30 H Magnesium Iron TIBC Ferritin Total Bilirubin Direct Bilirubin AST ALT Alkaline Phosphatase Total Creatine Kinase 1652 H CK-MB (CK-2) Troponin T C-Reactive Protein Serum Total Protein Total Protein Albumin Rjlbn-8-Irzvlywji Orwbp-0-Tmkhvortr PEP Interpretation Triglycerides LDL Cholesterol Direct HDL Cholesterol Free T4 PTH Intact Urine WBC (Auto) Urine Creatinine Salicylates Acetaminophen Crossmatch 04/01/19 04/01/19 04/01/19 05:14 05:37 18:37 WBC RBC Hgb Hct MCV MCH MCHC RDW Plt Count Lymph % (Auto) [place] % (Auto) Eos % (Auto) Lymph # [place] # Eos # Seg Neutrophils % Seg Neuts % (Manual) Lymphocytes % (Manual) Monocytes % (Manual) Nucleated RBC % Seg Neutrophils # Seg Neutrophils # Man Lymphocytes # (Manual) Monocytes # (Manual) PT INR D-Dimer Heparin Anti-Xa Level POC ABG pH 7.283 L ABG pH POC ABG pCO2 53.4 H POC ABG pO2 241 H ABG pO2 ABG HCO3 ABG O2 Saturation ABG Base Excess ABG Hemoglobin Oxyhemoglobin Sodium Potassium Chloride Carbon Dioxide BUN Creatinine Glucose POC Glucose 111 H 119 H Lactic Acid Calcium Ionized Calcium Phosphorus Magnesium Iron TIBC Ferritin Total Bilirubin Direct Bilirubin AST ALT Alkaline Phosphatase Total Creatine Kinase CK-MB (CK-2) Troponin T C-Reactive Protein Serum Total Protein Total Protein Albumin Cxwea-1-Muzgiamyq Scfog-1-Wzlkysawx PEP Interpretation Triglycerides LDL Cholesterol Direct HDL Cholesterol Free T4 PTH Intact Urine WBC (Auto) Urine Creatinine Salicylates Acetaminophen Crossmatch 04/01/19 04/02/19 04/02/19 21:28 04:40 05:03 WBC RBC 2.36 L Hgb 7.2 L Hct 21.9 L MCV MCH MCHC RDW 16.0 H Plt Count Lymph % (Auto) 10.8 L [place] % (Auto) Eos % (Auto) Lymph # 0.8 L [place] # Eos # Seg Neutrophils % 80.3 H Seg Neuts % (Manual) Lymphocytes % (Manual) Monocytes % (Manual) Nucleated RBC % Seg Neutrophils # Seg Neutrophils # Man Lymphocytes # (Manual) Monocytes # (Manual) PT INR D-Dimer Heparin Anti-Xa Level POC ABG pH 7.299 L 7.300 L ABG pH POC ABG pCO2 48.2 H 45.2 H POC ABG pO2 133 H 107 H ABG pO2 ABG HCO3 ABG O2 Saturation ABG Base Excess ABG Hemoglobin Oxyhemoglobin Sodium Potassium Chloride Carbon Dioxide BUN Creatinine Glucose POC Glucose Lactic Acid Calcium Ionized Calcium Phosphorus Magnesium Iron TIBC Ferritin Total Bilirubin Direct Bilirubin AST ALT Alkaline Phosphatase Total Creatine Kinase CK-MB (CK-2) Troponin T C-Reactive Protein Serum Total Protein Total Protein Albumin Nvzqe-0-Iaofuaxsa Odtae-5-Kgbhwrjmq PEP Interpretation Triglycerides LDL Cholesterol Direct HDL Cholesterol Free T4 PTH Intact Urine WBC (Auto) Urine Creatinine Salicylates Acetaminophen Crossmatch 04/02/19 04/02/19 04/02/19 05:03 05:03 12:15 WBC RBC Hgb 7.4 L Hct 22.6 L MCV MCH MCHC RDW Plt Count Lymph % (Auto) [place] % (Auto) Eos % (Auto) Lymph # [place] # Eos # Seg Neutrophils % Seg Neuts % (Manual) Lymphocytes % (Manual) Monocytes % (Manual) Nucleated RBC % Seg Neutrophils # Seg Neutrophils # Man Lymphocytes # (Manual) Monocytes # (Manual) PT INR D-Dimer Heparin Anti-Xa Level POC ABG pH ABG pH POC ABG pCO2 POC ABG pO2 ABG pO2 ABG HCO3 ABG O2 Saturation ABG Base Excess ABG Hemoglobin Oxyhemoglobin Sodium 136 L Potassium Chloride 97.8 L Carbon Dioxide 18 L BUN 82 H Creatinine 8.2 H Glucose POC Glucose Lactic Acid Calcium 6.7 L Ionized Calcium Phosphorus 7.50 H Magnesium Iron 26 L TIBC 138 L Ferritin 607.0 H Total Bilirubin Direct Bilirubin AST ALT Alkaline Phosphatase Total Creatine Kinase CK-MB (CK-2) Troponin T C-Reactive Protein Serum Total Protein Total Protein Albumin Eelji-6-Xyztfcloe Fypal-3-Qthswqdio PEP Interpretation Triglycerides LDL Cholesterol Direct HDL Cholesterol Free T4 PTH Intact Urine WBC (Auto) Urine Creatinine Salicylates Acetaminophen Crossmatch 04/02/19 04/02/19 04/03/19 16:34 17:14 04:18 WBC RBC Hgb Hct MCV MCH MCHC RDW Plt Count Lymph % (Auto) [place] % (Auto) Eos % (Auto) Lymph # [place] # Eos # Seg Neutrophils % Seg Neuts % (Manual) Lymphocytes % (Manual) Monocytes % (Manual) Nucleated RBC % Seg Neutrophils # Seg Neutrophils # Man Lymphocytes # (Manual) Monocytes # (Manual) PT INR D-Dimer Heparin Anti-Xa Level POC ABG pH ABG pH POC ABG pCO2 POC ABG pO2 146 H ABG pO2 ABG HCO3 ABG O2 Saturation ABG Base Excess ABG Hemoglobin Oxyhemoglobin Sodium Potassium Chloride Carbon Dioxide BUN Creatinine Glucose POC Glucose 108 H Lactic Acid Calcium Ionized Calcium Phosphorus Magnesium Iron TIBC Ferritin Total Bilirubin Direct Bilirubin AST ALT Alkaline Phosphatase Total Creatine Kinase CK-MB (CK-2) Troponin T C-Reactive Protein Serum Total Protein Total Protein Albumin Rwnxr-3-Koexcgwjs Yvkmq-0-Tgkfkmpbx PEP Interpretation Triglycerides LDL Cholesterol Direct HDL Cholesterol Free T4 PTH Intact Urine WBC (Auto) Urine Creatinine Salicylates Acetaminophen Crossmatch See Detail 04/03/19 04/03/19 04/03/19 04:25 08:30 18:24 WBC RBC 2.40 L Hgb 7.3 L Hct 21.9 L MCV MCH MCHC RDW Plt Count Lymph % (Auto) [place] % (Auto) 7.7 H Eos % (Auto) Lymph # 0.9 L [place] # Eos # Seg Neutrophils % 74.6 H Seg Neuts % (Manual) Lymphocytes % (Manual) Monocytes % (Manual) Nucleated RBC % Seg Neutrophils # Seg Neutrophils # Man Lymphocytes # (Manual) Monocytes # (Manual) PT INR D-Dimer Heparin Anti-Xa Level POC ABG pH ABG pH POC ABG pCO2 POC ABG pO2 ABG pO2 ABG HCO3 ABG O2 Saturation ABG Base Excess ABG Hemoglobin Oxyhemoglobin Sodium 136 L Potassium Chloride 97.0 L Carbon Dioxide BUN 58 H Creatinine 7.3 H Glucose POC Glucose 106 H Lactic Acid Calcium 7.5 L Ionized Calcium Phosphorus 5.80 H D Magnesium Iron TIBC Ferritin Total Bilirubin Direct Bilirubin AST ALT Alkaline Phosphatase Total Creatine Kinase CK-MB (CK-2) Troponin T C-Reactive Protein Serum Total Protein Total Protein Albumin Rwlca-8-Wxeykslnd Hqqlh-5-Jiegrixmz PEP Interpretation Triglycerides LDL Cholesterol Direct HDL Cholesterol Free T4 PTH Intact Urine WBC (Auto) Urine Creatinine Salicylates Acetaminophen Crossmatch 04/03/19 04/04/19 04/04/19 23:43 04:47 04:47 WBC RBC 2.72 L Hgb 8.3 L Hct 24.7 L MCV MCH MCHC RDW 15.6 H Plt Count Lymph % (Auto) [place] % (Auto) 10.1 H Eos % (Auto) Lymph # 0.8 L [place] # Eos # Seg Neutrophils % 71.4 H Seg Neuts % (Manual) Lymphocytes % (Manual) Monocytes % (Manual) Nucleated RBC % Seg Neutrophils # Seg Neutrophils # Man Lymphocytes # (Manual) Monocytes # (Manual) PT INR D-Dimer Heparin Anti-Xa Level POC ABG pH ABG pH POC ABG pCO2 POC ABG pO2 ABG pO2 123.8 H ABG HCO3 ABG O2 Saturation ABG Base Excess -3.0 L ABG Hemoglobin 7.9 L Oxyhemoglobin Sodium 134 L Potassium Chloride 97.9 L Carbon Dioxide BUN 64 H Creatinine 8.1 H Glucose POC Glucose Lactic Acid Calcium 7.2 L Ionized Calcium Phosphorus Magnesium Iron TIBC Ferritin Total Bilirubin Direct Bilirubin AST ALT Alkaline Phosphatase Total Creatine Kinase CK-MB (CK-2) Troponin T C-Reactive Protein Serum Total Protein Total Protein Albumin Ltjhf-3-Vymbwyqwh Duxbp-9-Hxefoprbp PEP Interpretation Triglycerides LDL Cholesterol Direct HDL Cholesterol Free T4 PTH Intact Urine WBC (Auto) Urine Creatinine Salicylates Acetaminophen Crossmatch 04/04/19 04/04/19 04/04/19 06:07 13:40 18:18 WBC RBC Hgb Hct MCV MCH MCHC RDW Plt Count Lymph % (Auto) [place] % (Auto) Eos % (Auto) Lymph # [place] # Eos # Seg Neutrophils % Seg Neuts % (Manual) Lymphocytes % (Manual) Monocytes % (Manual) Nucleated RBC % Seg Neutrophils # Seg Neutrophils # Man Lymphocytes # (Manual) Monocytes # (Manual) PT INR D-Dimer Heparin Anti-Xa Level POC ABG pH ABG pH POC ABG pCO2 POC ABG pO2 ABG pO2 95.9 H ABG HCO3 ABG O2 Saturation ABG Base Excess -3.0 L ABG Hemoglobin 8.5 L Oxyhemoglobin Sodium Potassium Chloride Carbon Dioxide BUN Creatinine Glucose POC Glucose 107 H 107 H Lactic Acid Calcium Ionized Calcium Phosphorus Magnesium Iron TIBC Ferritin Total Bilirubin Direct Bilirubin AST ALT Alkaline Phosphatase Total Creatine Kinase CK-MB (CK-2) Troponin T C-Reactive Protein Serum Total Protein Total Protein Albumin Sshkv-7-Qeybvajca Wexbp-4-Haldqmyvh PEP Interpretation Triglycerides LDL Cholesterol Direct HDL Cholesterol Free T4 PTH Intact Urine WBC (Auto) Urine Creatinine Salicylates Acetaminophen Crossmatch 04/04/19 04/05/19 04/05/19 21:22 04:09 04:09 WBC RBC 2.76 L Hgb 8.4 L Hct 25.4 L MCV MCH MCHC RDW 15.8 H Plt Count 133 L Lymph % (Auto) [place] % (Auto) 9.6 H Eos % (Auto) Lymph # 0.7 L [place] # Eos # Seg Neutrophils % 72.6 H Seg Neuts % (Manual) Lymphocytes % (Manual) Monocytes % (Manual) Nucleated RBC % Seg Neutrophils # Seg Neutrophils # Man Lymphocytes # (Manual) Monocytes # (Manual) PT INR D-Dimer Heparin Anti-Xa Level POC ABG pH ABG pH POC ABG pCO2 47.2 H POC ABG pO2 137 H ABG pO2 ABG HCO3 ABG O2 Saturation ABG Base Excess ABG Hemoglobin Oxyhemoglobin Sodium 136 L Potassium Chloride Carbon Dioxide BUN 46 H Creatinine 6.7 H Glucose POC Glucose Lactic Acid Calcium 7.7 L Ionized Calcium Phosphorus Magnesium Iron TIBC Ferritin Total Bilirubin Direct Bilirubin AST ALT Alkaline Phosphatase Total Creatine Kinase CK-MB (CK-2) Troponin T C-Reactive Protein Serum Total Protein Total Protein Albumin Xhtba-5-Joyxkhbaq Ydxdb-5-Ztavsgunu PEP Interpretation Triglycerides LDL Cholesterol Direct HDL Cholesterol Free T4 PTH Intact Urine WBC (Auto) Urine Creatinine Salicylates Acetaminophen Crossmatch 04/05/19 04/05/19 04/05/19 05:28 06:14 16:50 WBC RBC Hgb Hct MCV MCH MCHC RDW Plt Count Lymph % (Auto) [place] % (Auto) Eos % (Auto) Lymph # [place] # Eos # Seg Neutrophils % Seg Neuts % (Manual) Lymphocytes % (Manual) Monocytes % (Manual) Nucleated RBC % Seg Neutrophils # Seg Neutrophils # Man Lymphocytes # (Manual) Monocytes # (Manual) PT INR D-Dimer Heparin Anti-Xa Level POC ABG pH ABG pH POC ABG pCO2 POC ABG pO2 67 L ABG pO2 ABG HCO3 ABG O2 Saturation ABG Base Excess ABG Hemoglobin Oxyhemoglobin Sodium Potassium Chloride Carbon Dioxide BUN Creatinine Glucose POC Glucose 108 H Lactic Acid Calcium Ionized Calcium Phosphorus Magnesium Iron TIBC Ferritin Total Bilirubin Direct Bilirubin AST ALT Alkaline Phosphatase Total Creatine Kinase CK-MB (CK-2) Troponin T C-Reactive Protein Serum Total Protein Total Protein Albumin Rxsnz-5-Ieqdlbieg Chvgq-5-Wldatsyuv PEP Interpretation Triglycerides LDL Cholesterol Direct HDL Cholesterol Free T4 PTH Intact Urine WBC (Auto) 40.0 H Urine Creatinine Salicylates Acetaminophen Crossmatch 04/05/19 04/06/19 04/06/19 17:22 00:13 04:44 WBC RBC 2.48 L Hgb 7.5 L Hct 22.9 L MCV MCH MCHC RDW 16.0 H Plt Count 107 L Lymph % (Auto) [place] % (Auto) 10.7 H Eos % (Auto) Lymph # 1.0 L [place] # Eos # Seg Neutrophils % Seg Neuts % (Manual) Lymphocytes % (Manual) Monocytes % (Manual) Nucleated RBC % Seg Neutrophils # Seg Neutrophils # Man Lymphocytes # (Manual) Monocytes # (Manual) PT INR D-Dimer Heparin Anti-Xa Level POC ABG pH ABG pH POC ABG pCO2 POC ABG pO2 ABG pO2 ABG HCO3 ABG O2 Saturation ABG Base Excess ABG Hemoglobin Oxyhemoglobin Sodium Potassium Chloride Carbon Dioxide BUN Creatinine Glucose POC Glucose 118 H 138 H Lactic Acid Calcium Ionized Calcium Phosphorus Magnesium Iron TIBC Ferritin Total Bilirubin Direct Bilirubin AST ALT Alkaline Phosphatase Total Creatine Kinase CK-MB (CK-2) Troponin T C-Reactive Protein Serum Total Protein Total Protein Albumin Mzzbj-4-Qdgcpklxj Zmaao-2-Hrnwnjzqs PEP Interpretation Triglycerides LDL Cholesterol Direct HDL Cholesterol Free T4 PTH Intact Urine WBC (Auto) Urine Creatinine Salicylates Acetaminophen Crossmatch 04/06/19 04/06/19 04/06/19 04:44 05:20 05:23 WBC RBC Hgb Hct MCV MCH MCHC RDW Plt Count Lymph % (Auto) [place] % (Auto) Eos % (Auto) Lymph # [place] # Eos # Seg Neutrophils % Seg Neuts % (Manual) Lymphocytes % (Manual) Monocytes % (Manual) Nucleated RBC % Seg Neutrophils # Seg Neutrophils # Man Lymphocytes # (Manual) Monocytes # (Manual) PT INR D-Dimer Heparin Anti-Xa Level POC ABG pH ABG pH POC ABG pCO2 POC ABG pO2 ABG pO2 104.0 H ABG HCO3 ABG O2 Saturation ABG Base Excess -2.1 L ABG Hemoglobin 7.3 L Oxyhemoglobin Sodium Potassium Chloride Carbon Dioxide BUN 64 H Creatinine 8.2 H Glucose 103 H POC Glucose 118 H Lactic Acid Calcium 7.3 L Ionized Calcium Phosphorus Magnesium Iron TIBC Ferritin Total Bilirubin Direct Bilirubin AST ALT Alkaline Phosphatase Total Creatine Kinase CK-MB (CK-2) Troponin T C-Reactive Protein Serum Total Protein Total Protein Albumin Gvncg-[id number]-Vriqskhbh Iwnzv-5-[place]af PEP Interpretation Triglycerides LDL Cholesterol Direct HDL Cholesterol Free T4 PTH Intact Urine WBC (Auto) Urine Creatinine Salicylates Acetaminophen Crossmatch 04/06/19 04/07/19 04/07/19 12:02 05:40 05:40 WBC RBC 2.59 L Hgb 7.9 L Hct 23.8 L MCV MCH MCHC RDW 15.8 H Plt Count 89 L Lymph % (Auto) [place] % (Auto) 10.3 H Eos % (Auto) Lymph # 1.1 L [place] # Eos # Seg Neutrophils % Seg Neuts % (Manual) Lymphocytes % (Manual) Monocytes % (Manual) Nucleated RBC % Seg Neutrophils # Seg Neutrophils # Man Lymphocytes # (Manual) Monocytes # (Manual) PT INR D-Dimer Heparin Anti-Xa Level POC ABG pH ABG pH POC ABG pCO2 POC ABG pO2 ABG pO2 ABG HCO3 ABG O2 Saturation ABG Base Excess ABG Hemoglobin Oxyhemoglobin Sodium 136 L Potassium 3.5 L Chloride Carbon Dioxide BUN 46 H Creatinine 6.2 H Glucose POC Glucose 108 H Lactic Acid Calcium 7.9 L Ionized Calcium Phosphorus Magnesium Iron TIBC Ferritin Total Bilirubin Direct Bilirubin AST ALT Alkaline Phosphatase Total Creatine Kinase CK-MB (CK-2) Troponin T C-Reactive Protein Serum Total Protein Total Protein Albumin Ogofa-4-Qefjmfsmk Bieiv-3-Roojkfbnt PEP Interpretation Triglycerides LDL Cholesterol Direct HDL Cholesterol Free T4 PTH Intact Urine WBC (Auto) Urine Creatinine Salicylates Acetaminophen Crossmatch 04/07/19 04/09/19 04/09/19 12:57 04:28 04:28 WBC RBC 2.85 L Hgb 8.7 L Hct 26.2 L MCV MCH MCHC RDW 15.6 H Plt Count Lymph % (Auto) [place] % (Auto) 10.4 H Eos % (Auto) Lymph # 1.0 L [place] # Eos # Seg Neutrophils % 73.3 H Seg Neuts % (Manual) Lymphocytes % (Manual) Monocytes % (Manual) Nucleated RBC % Seg Neutrophils # Seg Neutrophils # Man Lymphocytes # (Manual) Monocytes # (Manual) PT INR D-Dimer Heparin Anti-Xa Level POC ABG pH ABG pH POC ABG pCO2 POC ABG pO2 107 H ABG pO2 ABG HCO3 ABG O2 Saturation ABG Base Excess ABG Hemoglobin Oxyhemoglobin Sodium Potassium 3.5 L Chloride 97.8 L Carbon Dioxide BUN 62 H Creatinine 8.1 H Glucose POC Glucose Lactic Acid Calcium 8.2 L Ionized Calcium Phosphorus 5.10 H Magnesium Iron TIBC Ferritin Total Bilirubin Direct Bilirubin AST ALT Alkaline Phosphatase Total Creatine Kinase CK-MB (CK-2) Troponin T C-Reactive Protein Serum Total Protein Total Protein Albumin Aevgg-4-Pvchjwvor Szjjg-9-Iylybiwni PEP Interpretation Triglycerides LDL Cholesterol Direct HDL Cholesterol Free T4 PTH Intact Urine WBC (Auto) Urine Creatinine Salicylates Acetaminophen Crossmatch 04/10/19 04/11/19 04/11/19 18:15 00:25 04:16 WBC 11.5 H RBC 2.91 L Hgb 8.9 L Hct 27.6 L MCV 95 H MCH MCHC RDW 17.5 H Plt Count Lymph % (Auto) [place] % (Auto) Eos % (Auto) Lymph # [place] # Eos # Seg Neutrophils % Seg Neuts % (Manual) 71.0 H Lymphocytes % (Manual) Monocytes % (Manual) 8.0 H Nucleated RBC % Seg Neutrophils # Seg Neutrophils # Man 8.2 H Lymphocytes # (Manual) Monocytes # (Manual) 0.9 H PT INR D-Dimer Heparin Anti-Xa Level POC ABG pH ABG pH POC ABG pCO2 POC ABG pO2 ABG pO2 ABG HCO3 ABG O2 Saturation ABG Base Excess ABG Hemoglobin Oxyhemoglobin Sodium Potassium Chloride Carbon Dioxide BUN Creatinine Glucose POC Glucose 109 H 114 H Lactic Acid Calcium Ionized Calcium Phosphorus Magnesium Iron TIBC Ferritin Total Bilirubin Direct Bilirubin AST ALT Alkaline Phosphatase Total Creatine Kinase CK-MB (CK-2) Troponin T C-Reactive Protein Serum Total Protein Total Protein Albumin Fgmqv-4-Dkwzrkivg Punpn-7-Vzrjddyeg PEP Interpretation Triglycerides LDL Cholesterol Direct HDL Cholesterol Free T4 PTH Intact Urine WBC (Auto) Urine Creatinine Salicylates Acetaminophen Crossmatch 04/11/19 04/11/19 04/11/19 06:47 09:21 12:15 WBC RBC Hgb Hct MCV MCH MCHC RDW Plt Count Lymph % (Auto) [place] % (Auto) Eos % (Auto) Lymph # [place] # Eos # Seg Neutrophils % Seg Neuts % (Manual) Lymphocytes % (Manual) Monocytes % (Manual) Nucleated RBC % Seg Neutrophils # Seg Neutrophils # Man Lymphocytes # (Manual) Monocytes # (Manual) PT INR D-Dimer Heparin Anti-Xa Level POC ABG pH ABG pH POC ABG pCO2 POC ABG pO2 ABG pO2 ABG HCO3 ABG O2 Saturation ABG Base Excess ABG Hemoglobin Oxyhemoglobin Sodium Potassium 3.5 L Chloride Carbon Dioxide BUN 45 H Creatinine 6.0 H Glucose 113 H POC Glucose 106 H 109 H Lactic Acid Calcium Ionized Calcium Phosphorus Magnesium Iron TIBC Ferritin Total Bilirubin Direct Bilirubin AST ALT Alkaline Phosphatase Total Creatine Kinase CK-MB (CK-2) Troponin T C-Reactive Protein Serum Total Protein Total Protein Albumin Gotwa-9-Ucwbrdons Onjqy-5-Fvzufxoti PEP Interpretation Triglycerides LDL Cholesterol Direct HDL Cholesterol Free T4 PTH Intact Urine WBC (Auto) Urine Creatinine Salicylates Acetaminophen Crossmatch 04/11/19 04/12/19 04/12/19 18:42 12:13 23:52 WBC RBC Hgb Hct MCV MCH MCHC RDW Plt Count Lymph % (Auto) [place] % (Auto) Eos % (Auto) Lymph # [place] # Eos # Seg Neutrophils % Seg Neuts % (Manual) Lymphocytes % (Manual) Monocytes % (Manual) Nucleated RBC % Seg Neutrophils # Seg Neutrophils # Man Lymphocytes # (Manual) Monocytes # (Manual) PT INR D-Dimer Heparin Anti-Xa Level POC ABG pH ABG pH POC ABG pCO2 POC ABG pO2 ABG pO2 ABG HCO3 ABG O2 Saturation ABG Base Excess ABG Hemoglobin Oxyhemoglobin Sodium Potassium Chloride Carbon Dioxide BUN Creatinine Glucose POC Glucose 107 H 115 H 124 H Lactic Acid Calcium Ionized Calcium Phosphorus Magnesium Iron TIBC Ferritin Total Bilirubin Direct Bilirubin AST ALT Alkaline Phosphatase Total Creatine Kinase CK-MB (CK-2) Troponin T C-Reactive Protein Serum Total Protein Total Protein Albumin Miuga-0-Pthsriseb Izxuj-8-Lfmxzvodc PEP Interpretation Triglycerides LDL Cholesterol Direct HDL Cholesterol Free T4 PTH Intact Urine WBC (Auto) Urine Creatinine Salicylates Acetaminophen Crossmatch 04/13/19 04/13/19 04/13/19 05:00 05:00 05:47 WBC 11.7 H RBC 2.97 L Hgb 8.8 L Hct 27.3 L MCV MCH MCHC RDW 16.1 H Plt Count Lymph % (Auto) 9.5 L [place] % (Auto) 9.9 H Eos % (Auto) Lymph # 1.1 L [place] # 1.2 H Eos # Seg Neutrophils % 78.6 H Seg Neuts % (Manual) Lymphocytes % (Manual) Monocytes % (Manual) Nucleated RBC % Seg Neutrophils # 9.2 H Seg Neutrophils # Man Lymphocytes # (Manual) Monocytes # (Manual) PT INR D-Dimer Heparin Anti-Xa Level POC ABG pH ABG pH POC ABG pCO2 POC ABG pO2 ABG pO2 ABG HCO3 ABG O2 Saturation ABG Base Excess ABG Hemoglobin Oxyhemoglobin Sodium Potassium 3.5 L Chloride Carbon Dioxide BUN 42 H Creatinine 4.6 H Glucose 106 H POC Glucose 107 H Lactic Acid Calcium 10.6 H D Ionized Calcium Phosphorus 5.90 H Magnesium Iron TIBC Ferritin Total Bilirubin Direct Bilirubin AST ALT Alkaline Phosphatase Total Creatine Kinase CK-MB (CK-2) Troponin T C-Reactive Protein Serum Total Protein Total Protein 5.8 L Albumin 2.5 L Xhxac-5-Zqlllcdsh Tbkwq-7-Uuuzmihvb PEP Interpretation Triglycerides LDL Cholesterol Direct HDL Cholesterol Free T4 PTH Intact Urine WBC (Auto) Urine Creatinine Salicylates Acetaminophen Crossmatch 04/13/19 04/14/19 04/14/19 17:32 00:00 03:55 WBC RBC Hgb Hct MCV MCH MCHC RDW Plt Count Lymph % (Auto) [place] % (Auto) Eos % (Auto) Lymph # [place] # Eos # Seg Neutrophils % Seg Neuts % (Manual) Lymphocytes % (Manual) Monocytes % (Manual) Nucleated RBC % Seg Neutrophils # Seg Neutrophils # Man Lymphocytes # (Manual) Monocytes # (Manual) PT INR D-Dimer Heparin Anti-Xa Level POC ABG pH ABG pH POC ABG pCO2 POC ABG pO2 ABG pO2 ABG HCO3 ABG O2 Saturation ABG Base Excess ABG Hemoglobin Oxyhemoglobin Sodium Potassium 3.0 L Chloride Carbon Dioxide BUN 30 H Creatinine 3.1 H Glucose POC Glucose 112 H 120 H Lactic Acid Calcium 10.8 H Ionized Calcium Phosphorus Magnesium Iron TIBC Ferritin Total Bilirubin Direct Bilirubin AST ALT Alkaline Phosphatase Total Creatine Kinase CK-MB (CK-2) Troponin T C-Reactive Protein Serum Total Protein Total Protein Albumin Aiomq-7-Qrnkkbids Aivpq-9-Velsfnnkc PEP Interpretation Triglycerides LDL Cholesterol Direct HDL Cholesterol Free T4 PTH Intact Urine WBC (Auto) Urine Creatinine Salicylates Acetaminophen Crossmatch 04/14/19 04/14/19 04/15/19 11:56 23:28 05:11 WBC 13.0 H RBC 2.93 L Hgb 8.6 L Hct 26.5 L MCV MCH MCHC RDW 16.5 H Plt Count Lymph % (Auto) 12.2 L [place] % (Auto) 9.1 H Eos % (Auto) Lymph # [place] # 1.2 H Eos # Seg Neutrophils % 77.6 H Seg Neuts % (Manual) Lymphocytes % (Manual) Monocytes % (Manual) Nucleated RBC % Seg Neutrophils # 10.1 H Seg Neutrophils # Man Lymphocytes # (Manual) Monocytes # (Manual) PT INR D-Dimer Heparin Anti-Xa Level POC ABG pH ABG pH POC ABG pCO2 POC ABG pO2 ABG pO2 ABG HCO3 ABG O2 Saturation ABG Base Excess ABG Hemoglobin Oxyhemoglobin Sodium Potassium Chloride Carbon Dioxide BUN Creatinine Glucose POC Glucose 109 H 112 H Lactic Acid Calcium Ionized Calcium Phosphorus Magnesium Iron TIBC Ferritin Total Bilirubin Direct Bilirubin AST ALT Alkaline Phosphatase Total Creatine Kinase CK-MB (CK-2) Troponin T C-Reactive Protein Serum Total Protein Total Protein Albumin Dqssd-9-Xtsfrhquh Mnszd-8-Fmvdxmptg PEP Interpretation Triglycerides LDL Cholesterol Direct HDL Cholesterol Free T4 PTH Intact Urine WBC (Auto) Urine Creatinine Salicylates Acetaminophen Crossmatch 04/15/19 04/15/19 04/15/19 05:11 05:31 18:03 WBC RBC Hgb Hct MCV MCH MCHC RDW Plt Count Lymph % (Auto) [place] % (Auto) Eos % (Auto) Lymph # [place] # Eos # Seg Neutrophils % Seg Neuts % (Manual) Lymphocytes % (Manual) Monocytes % (Manual) Nucleated RBC % Seg Neutrophils # Seg Neutrophils # Man Lymphocytes # (Manual) Monocytes # (Manual) PT INR D-Dimer Heparin Anti-Xa Level POC ABG pH ABG pH POC ABG pCO2 POC ABG pO2 ABG pO2 ABG HCO3 ABG O2 Saturation ABG Base Excess ABG Hemoglobin Oxyhemoglobin Sodium Potassium 3.2 L Chloride Carbon Dioxide BUN 44 H Creatinine 3.6 H Glucose 106 H POC Glucose 110 H 121 H Lactic Acid Calcium 12.0 H Ionized Calcium Phosphorus 5.00 H Magnesium Iron TIBC Ferritin Total Bilirubin Direct Bilirubin AST ALT Alkaline Phosphatase Total Creatine Kinase CK-MB (CK-2) Troponin T C-Reactive Protein Serum Total Protein Total Protein Albumin Xnqts-4-Xojrctyoh Hxmvr-4-Luprgskil PEP Interpretation Triglycerides LDL Cholesterol Direct HDL Cholesterol Free T4 PTH Intact Urine WBC (Auto) Urine Creatinine Salicylates Acetaminophen Crossmatch 04/16/19 04/16/19 04/17/19 05:07 05:07 04:15 WBC 12.6 H RBC 3.12 L Hgb 9.0 L Hct 28.2 L MCV MCH MCHC RDW 16.6 H Plt Count Lymph % (Auto) 10.3 L [place] % (Auto) 9.8 H Eos % (Auto) Lymph # [place] # 1.2 H Eos # Seg Neutrophils % 78.2 H Seg Neuts % (Manual) Lymphocytes % (Manual) Monocytes % (Manual) Nucleated RBC % Seg Neutrophils # 9.9 H Seg Neutrophils # Man Lymphocytes # (Manual) Monocytes # (Manual) PT INR D-Dimer Heparin Anti-Xa Level POC ABG pH ABG pH POC ABG pCO2 POC ABG pO2 ABG pO2 ABG HCO3 ABG O2 Saturation ABG Base Excess ABG Hemoglobin Oxyhemoglobin Sodium 147 H 150 H Potassium 3.5 L 3.1 L Chloride Carbon Dioxide 32 H BUN 54 H 65 H Creatinine 3.8 H 4.0 H Glucose 102 H 107 H POC Glucose Lactic Acid Calcium 11.7 H 12.0 H Ionized Calcium Phosphorus 5.40 H Magnesium Iron TIBC Ferritin Total Bilirubin Direct Bilirubin AST ALT Alkaline Phosphatase Total Creatine Kinase CK-MB (CK-2) Troponin T C-Reactive Protein 7.10 H Serum Total Protein Total Protein Albumin Vrflb-5-Dotqamcix Xboye-9-Wzxacnkjg PEP Interpretation Triglycerides LDL Cholesterol Direct HDL Cholesterol Free T4 PTH Intact Urine WBC (Auto) Urine Creatinine Salicylates Acetaminophen Crossmatch 04/17/19 04/17/19 04/17/19 04:15 06:05 12:49 WBC 15.8 H RBC 3.32 L Hgb 9.5 L Hct 29.9 L MCV MCH MCHC RDW 16.9 H Plt Count Lymph % (Auto) 12.6 L [place] % (Auto) 11.1 H Eos % (Auto) Lymph # [place] # 1.7 H Eos # Seg Neutrophils % 74.7 H Seg Neuts % (Manual) Lymphocytes % (Manual) Monocytes % (Manual) Nucleated RBC % Seg Neutrophils # 11.8 H Seg Neutrophils # Man Lymphocytes # (Manual) Monocytes # (Manual) PT INR D-Dimer Heparin Anti-Xa Level POC ABG pH ABG pH POC ABG pCO2 POC ABG pO2 ABG pO2 ABG HCO3 ABG O2 Saturation ABG Base Excess ABG Hemoglobin Oxyhemoglobin Sodium Potassium Chloride Carbon Dioxide BUN Creatinine Glucose POC Glucose 111 H 108 H Lactic Acid Calcium Ionized Calcium Phosphorus Magnesium Iron TIBC Ferritin Total Bilirubin Direct Bilirubin AST ALT Alkaline Phosphatase Total Creatine Kinase CK-MB (CK-2) Troponin T C-Reactive Protein Serum Total Protein Total Protein Albumin Flcez-5-Wyxpdskhp Tkbmx-5-Gwmipdvmi PEP Interpretation Triglycerides LDL Cholesterol Direct HDL Cholesterol Free T4 PTH Intact Urine WBC (Auto) Urine Creatinine Salicylates Acetaminophen Crossmatch 04/18/19 04/18/19 04/18/19 00:23 04:41 04:41 WBC 19.4 H RBC 3.03 L Hgb 8.6 L Hct 27.5 L MCV MCH MCHC 31 L RDW 16.9 H Plt Count Lymph % (Auto) [place] % (Auto) Eos % (Auto) Lymph # [place] # Eos # Seg Neutrophils % Seg Neuts % (Manual) Lymphocytes % (Manual) Monocytes % (Manual) Nucleated RBC % Seg Neutrophils # Seg Neutrophils # Man Lymphocytes # (Manual) Monocytes # (Manual) PT INR D-Dimer Heparin Anti-Xa Level POC ABG pH ABG pH POC ABG pCO2 POC ABG pO2 ABG pO2 ABG HCO3 ABG O2 Saturation ABG Base Excess ABG Hemoglobin Oxyhemoglobin Sodium 152 H Potassium 3.0 L Chloride Carbon Dioxide BUN 80 H Creatinine 4.3 H Glucose 103 H POC Glucose 115 H Lactic Acid Calcium 11.4 H Ionized Calcium Phosphorus Magnesium Iron TIBC Ferritin Total Bilirubin Direct Bilirubin AST ALT Alkaline Phosphatase Total Creatine Kinase CK-MB (CK-2) Troponin T C-Reactive Protein Serum Total Protein Total Protein Albumin Ekirx-3-Aubeewggs Mnzgw-9-Xlpxngugo PEP Interpretation Triglycerides LDL Cholesterol Direct HDL Cholesterol Free T4 PTH Intact Urine WBC (Auto) Urine Creatinine Salicylates Acetaminophen Crossmatch 04/18/19 04/18/19 04/18/19 06:17 12:16 18:10 WBC RBC Hgb Hct MCV MCH MCHC RDW Plt Count Lymph % (Auto) [place] % (Auto) Eos % (Auto) Lymph # [place] # Eos # Seg Neutrophils % Seg Neuts % (Manual) Lymphocytes % (Manual) Monocytes % (Manual) Nucleated RBC % Seg Neutrophils # Seg Neutrophils # Man Lymphocytes # (Manual) Monocytes # (Manual) PT INR D-Dimer Heparin Anti-Xa Level POC ABG pH ABG pH POC ABG pCO2 POC ABG pO2 ABG pO2 ABG HCO3 ABG O2 Saturation ABG Base Excess ABG Hemoglobin Oxyhemoglobin Sodium Potassium Chloride Carbon Dioxide BUN Creatinine Glucose POC Glucose 124 H 119 H 111 H Lactic Acid Calcium Ionized Calcium Phosphorus Magnesium Iron TIBC Ferritin Total Bilirubin Direct Bilirubin AST ALT Alkaline Phosphatase Total Creatine Kinase CK-MB (CK-2) Troponin T C-Reactive Protein Serum Total Protein Total Protein Albumin Ndwuo-8-Zwjjednaa Lzzty-4-Qxrmdvzpw PEP Interpretation Triglycerides LDL Cholesterol Direct HDL Cholesterol Free T4 PTH Intact Urine WBC (Auto) Urine Creatinine Salicylates Acetaminophen Crossmatch 04/19/19 04/19/19 04/20/19 03:49 05:27 09:09 WBC RBC Hgb Hct MCV MCH MCHC RDW Plt Count Lymph % (Auto) [place] % (Auto) Eos % (Auto) Lymph # [place] # Eos # Seg Neutrophils % Seg Neuts % (Manual) Lymphocytes % (Manual) Monocytes % (Manual) Nucleated RBC % Seg Neutrophils # Seg Neutrophils # Man Lymphocytes # (Manual) Monocytes # (Manual) PT INR D-Dimer Heparin Anti-Xa Level POC ABG pH ABG pH POC ABG pCO2 POC ABG pO2 ABG pO2 ABG HCO3 ABG O2 Saturation ABG Base Excess ABG Hemoglobin Oxyhemoglobin Sodium 147 H 150 H Potassium 3.3 L Chloride 108.9 H Carbon Dioxide BUN 45 H 70 H Creatinine 2.9 H 4.1 H Glucose 105 H POC Glucose 124 H Lactic Acid Calcium 10.6 H 11.6 H Ionized Calcium Phosphorus Magnesium Iron TIBC Ferritin Total Bilirubin Direct Bilirubin AST ALT Alkaline Phosphatase Total Creatine Kinase CK-MB (CK-2) Troponin T C-Reactive Protein Serum Total Protein Total Protein Albumin Rakgt-2-Pqvvgzixw Xrevw-7-Ofzvnvxkh PEP Interpretation Triglycerides LDL Cholesterol Direct HDL Cholesterol Free T4 PTH Intact Urine WBC (Auto) Urine Creatinine Salicylates Acetaminophen Crossmatch 04/20/19 04/20/19 04/21/19 12:29 18:45 01:34 WBC RBC Hgb Hct MCV MCH MCHC RDW Plt Count Lymph % (Auto) [place] % (Auto) Eos % (Auto) Lymph # [place] # Eos # Seg Neutrophils % Seg Neuts % (Manual) Lymphocytes % (Manual) Monocytes % (Manual) Nucleated RBC % Seg Neutrophils # Seg Neutrophils # Man Lymphocytes # (Manual) Monocytes # (Manual) PT INR D-Dimer Heparin Anti-Xa Level POC ABG pH ABG pH POC ABG pCO2 POC ABG pO2 ABG pO2 ABG HCO3 ABG O2 Saturation ABG Base Excess ABG Hemoglobin Oxyhemoglobin Sodium Potassium Chloride Carbon Dioxide BUN 40 H Creatinine 2.6 H Glucose 104 H POC Glucose 131 H 134 H Lactic Acid Calcium 11.0 H Ionized Calcium Phosphorus Magnesium Iron TIBC Ferritin Total Bilirubin Direct Bilirubin AST ALT Alkaline Phosphatase Total Creatine Kinase CK-MB (CK-2) Troponin T C-Reactive Protein Serum Total Protein Total Protein Albumin Dfokt-3-Byfavdidq Hfpqc-5-Kgqtkgieo PEP Interpretation Triglycerides LDL Cholesterol Direct HDL Cholesterol Free T4 PTH Intact Urine WBC (Auto) Urine Creatinine Salicylates Acetaminophen Crossmatch 04/21/19 04/21/19 04/22/19 04:22 04:22 04:24 WBC 14.2 H 14.3 H RBC 3.02 L 3.57 L Hgb 8.7 L 10.1 L Hct 27.2 L 32.1 L MCV MCH MCHC RDW 16.7 H 17.2 H Plt Count Lymph % (Auto) [place] % (Auto) Eos % (Auto) Lymph # [place] # Eos # Seg Neutrophils % Seg Neuts % (Manual) Lymphocytes % (Manual) Monocytes % (Manual) Nucleated RBC % Seg Neutrophils # Seg Neutrophils # Man Lymphocytes # (Manual) Monocytes # (Manual) PT INR D-Dimer Heparin Anti-Xa Level POC ABG pH ABG pH POC ABG pCO2 POC ABG pO2 ABG pO2 ABG HCO3 ABG O2 Saturation ABG Base Excess ABG Hemoglobin Oxyhemoglobin Sodium Potassium Chloride Carbon Dioxide BUN Creatinine Glucose POC Glucose Lactic Acid Calcium Ionized Calcium Phosphorus Magnesium Iron TIBC Ferritin Total Bilirubin Direct Bilirubin AST ALT Alkaline Phosphatase Total Creatine Kinase CK-MB (CK-2) Troponin T C-Reactive Protein Serum Total Protein 5.7 L Total Protein Albumin 2.3 L Zqzyc-1-Lcfeejira 0.5 H Woiso-1-Mzgdxerxj 1.0 H PEP Interpretation see below H Triglycerides LDL Cholesterol Direct HDL Cholesterol Free T4 PTH Intact Urine WBC (Auto) Urine Creatinine Salicylates Acetaminophen Crossmatch 04/22/19 04/22/19 04/22/19 04:24 06:37 11:57 WBC RBC Hgb Hct MCV MCH MCHC RDW Plt Count Lymph % (Auto) [place] % (Auto) Eos % (Auto) Lymph # [place] # Eos # Seg Neutrophils % Seg Neuts % (Manual) Lymphocytes % (Manual) Monocytes % (Manual) Nucleated RBC % Seg Neutrophils # Seg Neutrophils # Man Lymphocytes # (Manual) Monocytes # (Manual) PT INR D-Dimer Heparin Anti-Xa Level POC ABG pH ABG pH POC ABG pCO2 POC ABG pO2 ABG pO2 ABG HCO3 ABG O2 Saturation ABG Base Excess ABG Hemoglobin Oxyhemoglobin Sodium Potassium Chloride Carbon Dioxide BUN 54 H Creatinine 3.5 H Glucose POC Glucose 113 H 110 H Lactic Acid Calcium 11.4 H Ionized Calcium Phosphorus Magnesium Iron TIBC Ferritin Total Bilirubin Direct Bilirubin AST ALT Alkaline Phosphatase Total Creatine Kinase CK-MB (CK-2) Troponin T C-Reactive Protein Serum Total Protein Total Protein Albumin [place]-7-Oaqtwvcen Qmjoo-3-Kacsenqnd PEP Interpretation Triglycerides LDL Cholesterol Direct HDL Cholesterol Free T4 PTH Intact Urine WBC (Auto) Urine Creatinine Salicylates Acetaminophen Crossmatch 04/22/19 04/23/19 04/23/19 18:33 04:06 04:06 WBC 16.1 H RBC 3.36 L Hgb 9.8 L Hct 30.8 L MCV MCH MCHC RDW 17.7 H Plt Count Lymph % (Auto) 9.9 L [place] % (Auto) Eos % (Auto) Lymph # [place] # Eos # Seg Neutrophils % 84.2 H Seg Neuts % (Manual) Lymphocytes % (Manual) Monocytes % (Manual) Nucleated RBC % Seg Neutrophils # 13.6 H Seg Neutrophils # Man Lymphocytes # (Manual) Monocytes # (Manual) PT INR D-Dimer Heparin Anti-Xa Level POC ABG pH ABG pH POC ABG pCO2 POC ABG pO2 ABG pO2 ABG HCO3 ABG O2 Saturation ABG Base Excess ABG Hemoglobin Oxyhemoglobin Sodium Potassium Chloride Carbon Dioxide BUN 59 H Creatinine 3.8 H Glucose POC Glucose 120 H Lactic Acid Calcium 12.3 H* Ionized Calcium Phosphorus 5.70 H Magnesium Iron TIBC Ferritin Total Bilirubin Direct Bilirubin AST ALT Alkaline Phosphatase Total Creatine Kinase CK-MB (CK-2) Troponin T C-Reactive Protein Serum Total Protein Total Protein Albumin 3.2 L Wntnb-0-Hwgyshcwr Qhmoy-4-Fsonotqou PEP Interpretation Triglycerides LDL Cholesterol Direct HDL Cholesterol Free T4 PTH Intact Urine WBC (Auto) Urine Creatinine Salicylates Acetaminophen Crossmatch 04/23/19 04/24/19 04/24/19 18:06 04:12 04:12 WBC 18.0 H RBC 3.46 L Hgb 9.8 L Hct 31.2 L MCV MCH MCHC 31 L RDW 17.5 H Plt Count Lymph % (Auto) 11.1 L [place] % (Auto) Eos % (Auto) Lymph # [place] # Eos # Seg Neutrophils % 81.9 H Seg Neuts % (Manual) Lymphocytes % (Manual) Monocytes % (Manual) Nucleated RBC % Seg Neutrophils # 14.7 H Seg Neutrophils # Man Lymphocytes # (Manual) Monocytes # (Manual) PT INR D-Dimer Heparin Anti-Xa Level POC ABG pH ABG pH POC ABG pCO2 POC ABG pO2 ABG pO2 ABG HCO3 ABG O2 Saturation ABG Base Excess ABG Hemoglobin Oxyhemoglobin Sodium Potassium Chloride Carbon Dioxide BUN 56 H Creatinine 3.6 H Glucose POC Glucose 124 H Lactic Acid Calcium 12.6 H* Ionized Calcium Phosphorus Magnesium Iron TIBC Ferritin Total Bilirubin Direct Bilirubin AST ALT Alkaline Phosphatase Total Creatine Kinase CK-MB (CK-2) Troponin T C-Reactive Protein Serum Total Protein Total Protein Albumin 3.2 L Suppo-7-Vneyrzqhn Jbapx-8-Skjsdafva PEP Interpretation Triglycerides LDL Cholesterol Direct HDL Cholesterol Free T4 PTH Intact Urine WBC (Auto) Urine Creatinine Salicylates Acetaminophen Crossmatch 04/24/19 04/24/19 04/25/19 06:21 11:47 05:58 WBC 18.0 H RBC 2.98 L Hgb 8.3 L Hct 26.5 L MCV MCH MCHC 31 L RDW 17.9 H Plt Count Lymph % (Auto) 10.1 L [place] % (Auto) Eos % (Auto) Lymph # [place] # 0.9 H Eos # Seg Neutrophils % 82.8 H Seg Neuts % (Manual) Lymphocytes % (Manual) Monocytes % (Manual) Nucleated RBC % Seg Neutrophils # 15.0 H Seg Neutrophils # Man Lymphocytes # (Manual) Monocytes # (Manual) PT INR D-Dimer Heparin Anti-Xa Level POC ABG pH ABG pH POC ABG pCO2 POC ABG pO2 ABG pO2 ABG HCO3 ABG O2 Saturation ABG Base Excess ABG Hemoglobin Oxyhemoglobin Sodium Potassium Chloride Carbon Dioxide BUN Creatinine Glucose POC Glucose 132 H 106 H Lactic Acid Calcium Ionized Calcium Phosphorus Magnesium Iron TIBC Ferritin Total Bilirubin Direct Bilirubin AST ALT Alkaline Phosphatase Total Creatine Kinase CK-MB (CK-2) Troponin T C-Reactive Protein Serum Total Protein Total Protein Albumin Kqkod-4-Crymfwvtj Xixvl-7-Tzjthfcpr PEP Interpretation Triglycerides LDL Cholesterol Direct HDL Cholesterol Free T4 PTH Intact Urine WBC (Auto) Urine Creatinine Salicylates Acetaminophen Crossmatch 04/25/19 04/26/19 04/26/19 05:58 05:57 06:08 WBC RBC Hgb Hct MCV MCH MCHC RDW Plt Count Lymph % (Auto) [place] % (Auto) Eos % (Auto) Lymph # [place] # Eos # Seg Neutrophils % Seg Neuts % (Manual) Lymphocytes % (Manual) Monocytes % (Manual) Nucleated RBC % Seg Neutrophils # Seg Neutrophils # Man Lymphocytes # (Manual) Monocytes # (Manual) PT INR D-Dimer Heparin Anti-Xa Level POC ABG pH ABG pH POC ABG pCO2 POC ABG pO2 ABG pO2 ABG HCO3 ABG O2 Saturation ABG Base Excess ABG Hemoglobin Oxyhemoglobin Sodium Potassium 3.2 L Chloride Carbon Dioxide BUN 52 H 48 H Creatinine 3.2 H 2.9 H Glucose 108 H 112 H POC Glucose 109 H Lactic Acid Calcium 11.4 H 12.5 H* Ionized Calcium Phosphorus 5.90 H Magnesium Iron TIBC Ferritin Total Bilirubin Direct Bilirubin AST ALT Alkaline Phosphatase Total Creatine Kinase CK-MB (CK-2) Troponin T C-Reactive Protein Serum Total Protein Total Protein Albumin 3.0 L Btbrg-0-Wukdbgwwa Jvlav-5-Xgjyqejss PEP Interpretation Triglycerides LDL Cholesterol Direct HDL Cholesterol Free T4 PTH Intact Urine WBC (Auto) Urine Creatinine Salicylates Acetaminophen Crossmatch 04/26/19 04/26/19 04/27/19 07:22 13:39 05:05 WBC 11.9 H RBC 3.01 L Hgb 8.6 L Hct 26.3 L MCV MCH MCHC RDW 17.6 H Plt Count Lymph % (Auto) 11.9 L [place] % (Auto) Eos % (Auto) Lymph # [place] # Eos # Seg Neutrophils % 78.3 H Seg Neuts % (Manual) Lymphocytes % (Manual) Monocytes % (Manual) Nucleated RBC % Seg Neutrophils # 9.4 H Seg Neutrophils # Man Lymphocytes # (Manual) Monocytes # (Manual) PT INR D-Dimer Heparin Anti-Xa Level POC ABG pH ABG pH POC ABG pCO2 POC ABG pO2 ABG pO2 ABG HCO3 ABG O2 Saturation ABG Base Excess ABG Hemoglobin Oxyhemoglobin Sodium Potassium Chloride Carbon Dioxide BUN 46 H Creatinine 2.8 H Glucose POC Glucose Lactic Acid Calcium > 13.0 H* 12.2 H* Ionized Calcium Phosphorus Magnesium Iron TIBC Ferritin Total Bilirubin Direct Bilirubin AST ALT Alkaline Phosphatase Total Creatine Kinase CK-MB (CK-2) Troponin T C-Reactive Protein Serum Total Protein Total Protein Albumin Cxdil-5-Xpskexhfs Oatsz-0-Mtgcbamjp PEP Interpretation Triglycerides LDL Cholesterol Direct HDL Cholesterol Free T4 PTH Intact Urine WBC (Auto) Urine Creatinine Salicylates Acetaminophen Crossmatch 04/27/19 04/28/19 04/29/19 05:05 05:17 14:14 WBC RBC Hgb Hct MCV MCH MCHC RDW Plt Count Lymph % (Auto) [place] % (Auto) Eos % (Auto) Lymph # [place] # Eos # Seg Neutrophils % Seg Neuts % (Manual) Lymphocytes % (Manual) Monocytes % (Manual) Nucleated RBC % Seg Neutrophils # Seg Neutrophils # Man Lymphocytes # (Manual) Monocytes # (Manual) PT INR D-Dimer Heparin Anti-Xa Level POC ABG pH ABG pH POC ABG pCO2 POC ABG pO2 ABG pO2 ABG HCO3 ABG O2 Saturation ABG Base Excess ABG Hemoglobin Oxyhemoglobin Sodium 136 L Potassium 3.2 L 3.4 L Chloride Carbon Dioxide BUN 40 H 34 H 33 H Creatinine 2.5 H 2.0 H 1.9 H Glucose 113 H 107 H POC Glucose Lactic Acid Calcium 12.3 H* 12.1 H* 11.5 H Ionized Calcium Phosphorus Magnesium Iron TIBC Ferritin Total Bilirubin Direct Bilirubin AST ALT Alkaline Phosphatase Total Creatine Kinase CK-MB (CK-2) Troponin T C-Reactive Protein Serum Total Protein Total Protein 6.2 L Albumin 2.8 L Bwidb-0-Hqfvncpgn Krcyt-6-Avddhkqis PEP Interpretation Triglycerides LDL Cholesterol Direct HDL Cholesterol Free T4 PTH Intact Urine WBC (Auto) Urine Creatinine Salicylates Acetaminophen Crossmatch 04/29/19 04/29/19 04/30/19 14:14 14:14 06:47 WBC RBC Hgb Hct MCV MCH MCHC RDW Plt Count Lymph % (Auto) [place] % (Auto) Eos % (Auto) Lymph # [place] # Eos # Seg Neutrophils % Seg Neuts % (Manual) Lymphocytes % (Manual) Monocytes % (Manual) Nucleated RBC % Seg Neutrophils # Seg Neutrophils # Man Lymphocytes # (Manual) Monocytes # (Manual) PT INR D-Dimer Heparin Anti-Xa Level POC ABG pH ABG pH POC ABG pCO2 POC ABG pO2 ABG pO2 ABG HCO3 ABG O2 Saturation ABG Base Excess ABG Hemoglobin Oxyhemoglobin Sodium Potassium 3.2 L Chloride Carbon Dioxide 21 L BUN 26 H Creatinine 1.8 H Glucose POC Glucose Lactic Acid Calcium 10.8 H Ionized Calcium 7.2 H* Phosphorus Magnesium Iron TIBC Ferritin Total Bilirubin Direct Bilirubin AST ALT Alkaline Phosphatase Total Creatine Kinase CK-MB (CK-2) Troponin T C-Reactive Protein Serum Total Protein Total Protein Albumin Uznqb-4-Phsfldylb Cxrvm-5-Hdseuabux PEP Interpretation Triglycerides LDL Cholesterol Direct HDL Cholesterol Free T4 PTH Intact 8.83 L Urine WBC (Auto) Urine Creatinine Salicylates Acetaminophen Crossmatch 04/30/19 05/01/19 05/01/19 12:17 06:52 06:52 WBC 15.4 H RBC 3.01 L Hgb 8.4 L Hct 26.2 L MCV MCH MCHC RDW 17.0 H Plt Count Lymph % (Auto) 8.4 L [place] % (Auto) 8.9 H Eos % (Auto) Lymph # [place] # 1.4 H Eos # 0.5 H Seg Neutrophils % 78.7 H Seg Neuts % (Manual) Lymphocytes % (Manual) Monocytes % (Manual) Nucleated RBC % Seg Neutrophils # 12.1 H Seg Neutrophils # Man Lymphocytes # (Manual) Monocytes # (Manual) PT INR D-Dimer Heparin Anti-Xa Level POC ABG pH ABG pH POC ABG pCO2 POC ABG pO2 ABG pO2 ABG HCO3 ABG O2 Saturation ABG Base Excess ABG Hemoglobin Oxyhemoglobin Sodium Potassium 3.0 L Chloride Carbon Dioxide BUN 22 H Creatinine Glucose POC Glucose 106 H Lactic Acid Calcium 11.2 H Ionized Calcium Phosphorus Magnesium Iron TIBC Ferritin Total Bilirubin Direct Bilirubin AST ALT Alkaline Phosphatase Total Creatine Kinase CK-MB (CK-2) Troponin T C-Reactive Protein Serum Total Protein Total Protein Albumin 3.0 L Ttqox-1-Yonfebgfm Iplse-4-Kozbtnzfb PEP Interpretation Triglycerides LDL Cholesterol Direct HDL Cholesterol Free T4 PTH Intact Urine WBC (Auto) Urine Creatinine Salicylates Acetaminophen Crossmatch 05/01/19 05/01/19 05/02/19 06:52 18:40 05:32 WBC RBC Hgb Hct MCV MCH MCHC RDW Plt Count Lymph % (Auto) [place] % (Auto) Eos % (Auto) Lymph # [place] # Eos # Seg Neutrophils % Seg Neuts % (Manual) Lymphocytes % (Manual) Monocytes % (Manual) Nucleated RBC % Seg Neutrophils # Seg Neutrophils # Man Lymphocytes # (Manual) Monocytes # (Manual) PT INR D-Dimer Heparin Anti-Xa Level POC ABG pH ABG pH POC ABG pCO2 POC ABG pO2 ABG pO2 ABG HCO3 ABG O2 Saturation ABG Base Excess ABG Hemoglobin Oxyhemoglobin Sodium Potassium Chloride Carbon Dioxide BUN Creatinine Glucose POC Glucose 169 H 109 H Lactic Acid Calcium Ionized Calcium Phosphorus Magnesium Iron TIBC Ferritin Total Bilirubin Direct Bilirubin AST ALT Alkaline Phosphatase Total Creatine Kinase CK-MB (CK-2) Troponin T C-Reactive Protein Serum Total Protein 5.7 L Total Protein Albumin 2.5 L Dhgjt-0-Tqcjswmiv 0.5 H Jhzqp-4-Nbhvmgeyk PEP Interpretation see below H Triglycerides LDL Cholesterol Direct HDL Cholesterol Free T4 PTH Intact Urine WBC (Auto) Urine Creatinine Salicylates Acetaminophen Crossmatch 05/02/19 05/02/19 05/02/19 05:57 05:57 11:43 WBC 14.2 H RBC 2.96 L Hgb 8.3 L Hct 26.0 L MCV MCH MCHC RDW 16.8 H Plt Count Lymph % (Auto) [place] % (Auto) Eos % (Auto) Lymph # [place] # Eos # Seg Neutrophils % Seg Neuts % (Manual) Lymphocytes % (Manual) Monocytes % (Manual) Nucleated RBC % Seg Neutrophils # Seg Neutrophils # Man Lymphocytes # (Manual) Monocytes # (Manual) PT INR D-Dimer Heparin Anti-Xa Level POC ABG pH ABG pH POC ABG pCO2 POC ABG pO2 ABG pO2 ABG HCO3 ABG O2 Saturation ABG Base Excess ABG Hemoglobin Oxyhemoglobin Sodium 136 L Potassium 3.5 L Chloride Carbon Dioxide BUN 21 H Creatinine Glucose POC Glucose 108 H Lactic Acid Calcium 11.1 H Ionized Calcium Phosphorus Magnesium Iron TIBC Ferritin Total Bilirubin Direct Bilirubin AST ALT Alkaline Phosphatase Total Creatine Kinase CK-MB (CK-2) Troponin T C-Reactive Protein Serum Total Protein Total Protein Albumin Zkvit-7-Jjrxobxcd Akgen-8-Llphwejiq PEP Interpretation Triglycerides LDL Cholesterol Direct HDL Cholesterol Free T4 PTH Intact Urine WBC (Auto) Urine Creatinine Salicylates Acetaminophen Crossmatch 05/03/19 05/03/19 05/04/19 05:37 05:37 06:49 WBC 12.7 H 11.1 H RBC 3.01 L 3.07 L Hgb 8.3 L 8.6 L Hct 26.1 L 26.6 L MCV MCH MCHC RDW 16.9 H 17.3 H Plt Count Lymph % (Auto) [place] % (Auto) 9.0 H Eos % (Auto) 4.9 H Lymph # [place] # 1.0 H Eos # 0.5 H Seg Neutrophils % Seg Neuts % (Manual) Lymphocytes % (Manual) Monocytes % (Manual) Nucleated RBC % Seg Neutrophils # 7.8 H Seg Neutrophils # Man Lymphocytes # (Manual) Monocytes # (Manual) PT INR D-Dimer Heparin Anti-Xa Level POC ABG pH ABG pH POC ABG pCO2 POC ABG pO2 ABG pO2 ABG HCO3 ABG O2 Saturation ABG Base Excess ABG Hemoglobin Oxyhemoglobin Sodium 135 L Potassium 3.3 L Chloride Carbon Dioxide BUN Creatinine Glucose POC Glucose Lactic Acid Calcium 10.9 H Ionized Calcium Phosphorus Magnesium 1.50 L Iron TIBC Ferritin Total Bilirubin Direct Bilirubin AST ALT Alkaline Phosphatase Total Creatine Kinase CK-MB (CK-2) Troponin T C-Reactive Protein Serum Total Protein Total Protein Albumin Izzpf-4-Hbzfalwdj Ryrnf-7-Itzvcwdme PEP Interpretation Triglycerides LDL Cholesterol Direct HDL Cholesterol Free T4 PTH Intact Urine WBC (Auto) Urine Creatinine Salicylates Acetaminophen Crossmatch 05/04/19 05/04/19 05/04/19 06:49 06:49 11:58 WBC RBC Hgb Hct MCV MCH MCHC RDW Plt Count Lymph % (Auto) [place] % (Auto) Eos % (Auto) Lymph # [place] # Eos # Seg Neutrophils % Seg Neuts % (Manual) Lymphocytes % (Manual) Monocytes % (Manual) Nucleated RBC % Seg Neutrophils # Seg Neutrophils # Man Lymphocytes # (Manual) Monocytes # (Manual) PT 15.5 H INR 1.24 H D-Dimer Heparin Anti-Xa Level POC ABG pH ABG pH POC ABG pCO2 POC ABG pO2 ABG pO2 ABG HCO3 ABG O2 Saturation ABG Base Excess ABG Hemoglobin Oxyhemoglobin Sodium Potassium Chloride Carbon Dioxide 19 L BUN Creatinine Glucose POC Glucose 111 H Lactic Acid Calcium 10.7 H Ionized Calcium Phosphorus Magnesium Iron TIBC Ferritin Total Bilirubin Direct Bilirubin AST ALT Alkaline Phosphatase Total Creatine Kinase CK-MB (CK-2) Troponin T C-Reactive Protein Serum Total Protein Total Protein Albumin Iekth-0-Qldedoncp Alyne-0-Veojvkeyt PEP Interpretation Triglycerides LDL Cholesterol Direct HDL Cholesterol Free T4 PTH Intact Urine WBC (Auto) Urine Creatinine Salicylates Acetaminophen Crossmatch 05/05/19 05/05/19 05/07/19 06:14 06:14 05:55 WBC 11.5 H 12.0 H RBC 3.08 L 3.33 L Hgb 8.5 L 9.2 L Hct 26.5 L 28.5 L MCV MCH MCHC RDW 17.1 H 17.6 H Plt Count Lymph % (Auto) [place] % (Auto) Eos % (Auto) 8.2 H Lymph # [place] # Eos # 1.0 H Seg Neutrophils % Seg Neuts % (Manual) Lymphocytes % (Manual) Monocytes % (Manual) Nucleated RBC % Seg Neutrophils # 8.2 H Seg Neutrophils # Man Lymphocytes # (Manual) Monocytes # (Manual) PT INR D-Dimer Heparin Anti-Xa Level POC ABG pH ABG pH POC ABG pCO2 POC ABG pO2 ABG pO2 ABG HCO3 ABG O2 Saturation ABG Base Excess ABG Hemoglobin Oxyhemoglobin Sodium 136 L Potassium Chloride Carbon Dioxide 21 L BUN Creatinine Glucose POC Glucose Lactic Acid Calcium 10.3 H Ionized Calcium Phosphorus Magnesium Iron TIBC Ferritin Total Bilirubin Direct Bilirubin AST ALT Alkaline Phosphatase Total Creatine Kinase CK-MB (CK-2) Troponin T C-Reactive Protein Serum Total Protein Total Protein Albumin Irpnd-2-Pmsteypyz Ljajw-7-Hzuxbyocs PEP Interpretation Triglycerides LDL Cholesterol Direct HDL Cholesterol Free T4 PTH Intact Urine WBC (Auto) Urine Creatinine Salicylates Acetaminophen Crossmatch 05/07/19 05/08/19 05/08/19 05:55 07:27 07:27 WBC 12.5 H RBC 3.50 L Hgb 9.4 L Hct 30.4 L MCV MCH 27 L MCHC 31 L RDW 17.2 H Plt Count Lymph % (Auto) [place] % (Auto) Eos % (Auto) 10.3 H Lymph # [place] # Eos # 1.3 H Seg Neutrophils % Seg Neuts % (Manual) Lymphocytes % (Manual) Monocytes % (Manual) Nucleated RBC % Seg Neutrophils # 8.7 H Seg Neutrophils # Man Lymphocytes # (Manual) Monocytes # (Manual) PT INR D-Dimer Heparin Anti-Xa Level POC ABG pH ABG pH POC ABG pCO2 POC ABG pO2 ABG pO2 ABG HCO3 ABG O2 Saturation ABG Base Excess ABG Hemoglobin Oxyhemoglobin Sodium Potassium 3.5 L Chloride Carbon Dioxide 20 L 20 L BUN Creatinine Glucose POC Glucose Lactic Acid Calcium 10.7 H 10.7 H Ionized Calcium Phosphorus Magnesium Iron TIBC Ferritin Total Bilirubin Direct Bilirubin AST ALT Alkaline Phosphatase Total Creatine Kinase CK-MB (CK-2) Troponin T C-Reactive Protein Serum Total Protein Total Protein Albumin 3.2 L 3.4 L Qkrpd-3-Idxprimeo Mxuxn-5-Jkejmsfvg PEP Interpretation Triglycerides LDL Cholesterol Direct HDL Cholesterol Free T4 PTH Intact Urine WBC (Auto) Urine Creatinine Salicylates Acetaminophen Crossmatch 05/09/19 05/09/19 05/10/19 05:41 05:41 06:42 WBC 11.7 H RBC 3.27 L Hgb 9.2 L Hct 27.9 L MCV MCH MCHC RDW 17.8 H Plt Count Lymph % (Auto) [place] % (Auto) Eos % (Auto) 14.3 H Lymph # [place] # Eos # 1.7 H Seg Neutrophils % Seg Neuts % (Manual) Lymphocytes % (Manual) Monocytes % (Manual) Nucleated RBC % Seg Neutrophils # Seg Neutrophils # Man Lymphocytes # (Manual) Monocytes # (Manual) PT INR 1.17 H D-Dimer Heparin Anti-Xa Level POC ABG pH ABG pH POC ABG pCO2 POC ABG pO2 ABG pO2 ABG HCO3 ABG O2 Saturation ABG Base Excess ABG Hemoglobin Oxyhemoglobin Sodium 136 L Potassium Chloride Carbon Dioxide 21 L BUN Creatinine Glucose POC Glucose Lactic Acid Calcium 10.6 H Ionized Calcium Phosphorus Magnesium Iron TIBC Ferritin Total Bilirubin Direct Bilirubin AST ALT Alkaline Phosphatase Total Creatine Kinase CK-MB (CK-2) Troponin T C-Reactive Protein Serum Total Protein Total Protein Albumin 3.3 L Oqeqv-3-Ebxcvyrni Agfrq-9-Sxwrwptde PEP Interpretation Triglycerides LDL Cholesterol Direct HDL Cholesterol Free T4 PTH Intact Urine WBC (Auto) Urine Creatinine Salicylates Acetaminophen Crossmatch 05/10/19 05/11/19 06:42 04:40 WBC RBC Hgb Hct MCV MCH MCHC RDW Plt Count Lymph % (Auto) [place] % (Auto) Eos % (Auto) Lymph # [place] # Eos # Seg Neutrophils % Seg Neuts % (Manual) Lymphocytes % (Manual) Monocytes % (Manual) Nucleated RBC % Seg Neutrophils # Seg Neutrophils # Man Lymphocytes # (Manual) Monocytes # (Manual) PT INR D-Dimer Heparin Anti-Xa Level POC ABG pH ABG pH POC ABG pCO2 POC ABG pO2 ABG pO2 ABG HCO3 ABG O2 Saturation ABG Base Excess ABG Hemoglobin Oxyhemoglobin Sodium Potassium Chloride Carbon Dioxide 21 L 20 L BUN Creatinine Glucose POC Glucose Lactic Acid Calcium Ionized Calcium Phosphorus Magnesium Iron TIBC Ferritin Total Bilirubin Direct Bilirubin AST ALT Alkaline Phosphatase Total Creatine Kinase CK-MB (CK-2) Troponin T C-Reactive Protein Serum Total Protein Total Protein Albumin Gswkf-1-Spxgnacfz Gcble-0-Racstdojy PEP Interpretation Triglycerides LDL Cholesterol Direct HDL Cholesterol Free T4 PTH Intact Urine WBC (Auto) Urine Creatinine Salicylates Acetaminophen Crossmatch Allied health notes reviewed: nursing
--- NOTE | 2019-05-11 20:29 | Consultation ---
Past History Past Medical History: other (Unable to obtain ) Past Surgical History: Other (Unable to obtain ) Social history: other (Reside with a friend) Family history: other (unknown) Medications and Allergies Allergies Allergy/AdvReac Type Severity Reaction Status Date / Time No Known Allergies Allergy Unverified 03/16/19 17:17 Home Medications Medication Instructions Recorded Confirmed Last Taken Type No Known Home Medications [No 04/28/19 04/28/19 Unknown History Reported Home Medications] Active Meds: Active Medications Acetaminophen (Tylenol) 650 mg PO Q4H PRN PRN Reason: Pain, Mild (1-3),temp>100.5 Last Admin: 05/08/19 21:01 Dose: 650 mg Documented by: Acetaminophen/Hydrocodone Bitart ([place] 5/325) 1 each PO Q6H PRN PRN Reason: Pain, Moderate (4-6) Last Admin: 05/11/19 14:08 Dose: 1 each Documented by: Al Hydrox/Mg Hydrox/Simethicone (Alum-Mag Hydrox-Simeth [phone]/5ml) 15 ml PO Q4H PRN PRN Reason: Indigestion Last Admin: 04/30/19 15:53 Dose: 15 ml Documented by: Albuterol (Proventil) 2.5 mg IH Q4HRT PRN PRN Reason: Shortness Of Breath Lipase/Protease/Amylase (Pancreazapril Dr 10,500 Unit) 1 each FEEDTUBE PRN PRN PRN Reason: For Clogged Feeding Tube Bacitracin (Antibiotic Oint) 1 applic TP Q4H PRN PRN Reason: upper lip sore/open Dextrose (D50w (25gm) Vial) 50 gm IV Q1H PRN PRN Reason: Hypoglycemia Gabapentin (Gabapentin) 100 mg PO Q8HR PAOLO Last Admin: 05/11/19 14:05 Dose: 100 mg Documented by: Hydralazine HCl (Apresoline) 20 mg IV Q4H PRN PRN Reason: hypertemsion Last Admin: 04/14/19 03:11 Dose: 20 mg Documented by: Hydrophilic Ointment (Vaseline Lip Therapy) 1 applic TP Q2HR PRN PRN Reason: Dry Lips Last Admin: 04/19/19 18:24 Dose: 1 applic Documented by: Sodium Chloride (Nacl 0.9%) 100 mls @ 999 mls/hr IV NEYMAR PRN PRN Reason: Hypotension Sodium Chloride (Nacl 0.9% 500 Ml) 500 mls @ 50 mls/hr IV DIRECT [facility] Last Admin: 05/11/19 06:55 Dose: 50 mls/hr Documented by: Melatonin (Melatonin) 5 mg PO QHS PRN PRN Reason: Sleep Last Admin: 05/09/19 23:41 Dose: 5 mg Documented by: Metoprolol Succinate (Metoprolol Xl) 50 mg PO QDAY [facility] Last Admin: 05/11/19 09:48 Dose: 50 mg Documented by: Multi-Ingred Cream/Lotion/Oil/Oint (Artificial Tears Ophth Oint) 1 applic OU Q4HR PRN PRN Reason: Dry Eye(s) Last Admin: 03/19/19 20:10 Dose: 1 applic Documented by: Pantoprazole Sodium (Protonix) 40 mg PO BID [facility] Last Admin: 05/11/19 09:49 Dose: 40 mg Documented by: Simple Syrup (Simple Syrup) 15 ml FEEDTUBE PRN PRN PRN Reason: Hypoglycemia Simple Syrup (Simple Syrup) 30 ml FEEDTUBE PRN PRN PRN Reason: Hypoglycemia Last Admin: 05/01/19 17:57 Dose: 30 ml Documented by: Sodium Bicarbonate (Sodium Bicarbonate) 325 mg FEEDTUBE PRN PRN PRN Reason: For Clogged Feeding Tube Last Admin: 04/27/19 11:03 Dose: 325 mg Documented by: Physical Examination - Vital Signs Vital Signs: Vital Signs Pulse Resp Pulse Ox 195 H 29 H 82 L 03/16/19 15:26 03/16/19 15:26 03/16/19 15:26 Results - Laboratory Findings CBC and BMP: 05/09/19 05:41 05/11/19 04:40 Abnormal Lab Findings: Abnormal Labs 03/16/19 03/16/19 03/16/19 15:32 16:03 16:05 WBC 27.0 H RBC 5.55 H Hgb 15.7 H Hct 47.1 H MCV MCH MCHC RDW Plt Count 75 L Lymph % (Auto) [place] % (Auto) Eos % (Auto) Lymph # [place] # Eos # Seg Neutrophils % Seg Neuts % (Manual) 85.0 H Lymphocytes % (Manual) 2.0 L Monocytes % (Manual) Nucleated RBC % Seg Neutrophils # Seg Neutrophils # Man 23.0 H Lymphocytes # (Manual) 0.5 L Monocytes # (Manual) PT INR D-Dimer Heparin Anti-Xa Level POC ABG pH ABG pH POC ABG pCO2 POC ABG pO2 ABG pO2 ABG HCO3 ABG O2 Saturation ABG Base Excess ABG Hemoglobin Oxyhemoglobin Sodium 127 L Potassium Chloride 87.8 L Carbon Dioxide 17 L BUN 49 H Creatinine 5.8 H Glucose 150 H POC Glucose 118 H Lactic Acid Calcium 6.6 L Ionized Calcium Phosphorus Magnesium 1.10 L Iron TIBC Ferritin Total Bilirubin Direct Bilirubin AST ALT Alkaline Phosphatase Total Creatine Kinase 56485 H CK-MB (CK-2) Troponin T C-Reactive Protein Serum Total Protein Total Protein Albumin Zddit-3-Tjwjfcmja Zzxyq-6-Xexwrxexb PEP Interpretation Triglycerides LDL Cholesterol Direct HDL Cholesterol Free T4 PTH Intact Urine WBC (Auto) Urine Creatinine Salicylates Acetaminophen Crossmatch 03/16/19 03/16/19 03/16/19 16:59 17:05 17:05 WBC RBC Hgb Hct MCV MCH MCHC RDW Plt Count Lymph % (Auto) [place] % (Auto) Eos % (Auto) Lymph # [place] # Eos # Seg Neutrophils % Seg Neuts % (Manual) Lymphocytes % (Manual) Monocytes % (Manual) Nucleated RBC % Seg Neutrophils # Seg Neutrophils # Man Lymphocytes # (Manual) Monocytes # (Manual) PT INR D-Dimer Heparin Anti-Xa Level POC ABG pH 7.297 L ABG pH POC ABG pCO2 33.0 L POC ABG pO2 ABG pO2 ABG HCO3 ABG O2 Saturation ABG Base Excess ABG Hemoglobin Oxyhemoglobin Sodium Potassium Chloride Carbon Dioxide BUN Creatinine Glucose POC Glucose Lactic Acid Calcium Ionized Calcium Phosphorus Magnesium Iron TIBC Ferritin Total Bilirubin Direct Bilirubin AST ALT Alkaline Phosphatase Total Creatine Kinase 69405 H CK-MB (CK-2) 83.1 H Troponin T C-Reactive Protein Serum Total Protein Total Protein Albumin Twsvb-3-Aqyntjvwu Ubrba-7-Syhmjfkpn PEP Interpretation Triglycerides LDL Cholesterol Direct HDL Cholesterol Free T4 0.72 L PTH Intact Urine WBC (Auto) Urine Creatinine Salicylates Acetaminophen Crossmatch 03/16/19 03/16/19 03/16/19 17:05 17:05 17:05 WBC RBC Hgb Hct MCV MCH MCHC RDW Plt Count Lymph % (Auto) [place] % (Auto) Eos % (Auto) Lymph # [place] # Eos # Seg Neutrophils % Seg Neuts % (Manual) Lymphocytes % (Manual) Monocytes % (Manual) Nucleated RBC % Seg Neutrophils # Seg Neutrophils # Man Lymphocytes # (Manual) Monocytes # (Manual) PT INR D-Dimer Heparin Anti-Xa Level POC ABG pH ABG pH POC ABG pCO2 POC ABG pO2 ABG pO2 ABG HCO3 ABG O2 Saturation ABG Base Excess ABG Hemoglobin Oxyhemoglobin Sodium Potassium Chloride Carbon Dioxide BUN Creatinine Glucose POC Glucose Lactic Acid 5.10 H* Calcium Ionized Calcium Phosphorus Magnesium Iron TIBC Ferritin Total Bilirubin Direct Bilirubin AST ALT Alkaline Phosphatase Total Creatine Kinase CK-MB (CK-2) Troponin T C-Reactive Protein Serum Total Protein Total Protein Albumin Enxoy-1-Tamolpwza Omvxj-6-Teodmexbg PEP Interpretation Triglycerides LDL Cholesterol Direct HDL Cholesterol Free T4 PTH Intact Urine WBC (Auto) Urine Creatinine Salicylates < 0.3 L Acetaminophen < 5.0 L Crossmatch 03/16/19 03/16/19 03/16/19 17:05 17:05 20:35 WBC RBC Hgb Hct MCV MCH MCHC RDW Plt Count Lymph % (Auto) [place] % (Auto) Eos % (Auto) Lymph # [place] # Eos # Seg Neutrophils % Seg Neuts % (Manual) Lymphocytes % (Manual) Monocytes % (Manual) Nucleated RBC % Seg Neutrophils # Seg Neutrophils # Man Lymphocytes # (Manual) Monocytes # (Manual) PT 15.9 H INR 1.30 H D-Dimer Heparin Anti-Xa Level POC ABG pH ABG pH POC ABG pCO2 POC ABG pO2 ABG pO2 ABG HCO3 ABG O2 Saturation ABG Base Excess ABG Hemoglobin Oxyhemoglobin Sodium Potassium Chloride Carbon Dioxide BUN Creatinine Glucose POC Glucose Lactic Acid 3.30 H* Calcium Ionized Calcium Phosphorus Magnesium Iron TIBC Ferritin Total Bilirubin 6.20 H Direct Bilirubin 5.9 H AST 800 H ALT 120 H Alkaline Phosphatase Total Creatine Kinase CK-MB (CK-2) Troponin T C-Reactive Protein Serum Total Protein Total Protein 4.4 L Albumin 2.4 L Waiva-2-Dbmcvskvp Knneq-4-Xndkqklhi PEP Interpretation Triglycerides LDL Cholesterol Direct HDL Cholesterol Free T4 PTH Intact Urine WBC (Auto) Urine Creatinine Salicylates Acetaminophen Crossmatch 03/16/19 03/16/19 03/16/19 21:45 22:32 Unknown WBC RBC Hgb Hct MCV MCH MCHC RDW Plt Count Lymph % (Auto) [place] % (Auto) Eos % (Auto) Lymph # [place] # Eos # Seg Neutrophils % Seg Neuts % (Manual) Lymphocytes % (Manual) Monocytes % (Manual) Nucleated RBC % Seg Neutrophils # Seg Neutrophils # Man Lymphocytes # (Manual) Monocytes # (Manual) PT INR D-Dimer Heparin Anti-Xa Level POC ABG pH ABG pH POC ABG pCO2 POC ABG pO2 ABG pO2 ABG HCO3 ABG O2 Saturation ABG Base Excess ABG Hemoglobin Oxyhemoglobin Sodium Potassium Chloride Carbon Dioxide BUN Creatinine Glucose POC Glucose Lactic Acid 3.30 H* 3.00 H* Calcium Ionized Calcium Phosphorus Magnesium Iron TIBC Ferritin Total Bilirubin Direct Bilirubin AST ALT Alkaline Phosphatase Total Creatine Kinase CK-MB (CK-2) Troponin T 0.047 H D C-Reactive Protein Serum Total Protein Total Protein Albumin Mcpho-9-Zqsftdlge Ahrsx-9-Wrdmwjhuc PEP Interpretation Triglycerides 395 H LDL Cholesterol Direct 10 L HDL Cholesterol 7 L Free T4 PTH Intact Urine WBC (Auto) Urine Creatinine Salicylates Acetaminophen Crossmatch 03/17/19 03/17/19 03/17/19 03:45 03:45 03:45 WBC RBC Hgb Hct MCV MCH MCHC RDW Plt Count Lymph % (Auto) [place] % (Auto) Eos % (Auto) Lymph # [place] # Eos # Seg Neutrophils % Seg Neuts % (Manual) Lymphocytes % (Manual) Monocytes % (Manual) Nucleated RBC % Seg Neutrophils # Seg Neutrophils # Man Lymphocytes # (Manual) Monocytes # (Manual) PT INR D-Dimer Heparin Anti-Xa Level POC ABG pH ABG pH POC ABG pCO2 POC ABG pO2 ABG pO2 ABG HCO3 ABG O2 Saturation ABG Base Excess ABG Hemoglobin Oxyhemoglobin Sodium 131 L Potassium Chloride 88.9 L Carbon Dioxide BUN 53 H Creatinine 7.1 H Glucose POC Glucose Lactic Acid 4.10 H* Calcium 5.4 L* D Ionized Calcium Phosphorus 7.30 H Magnesium 1.60 L Iron TIBC Ferritin Total Bilirubin 5.90 H Direct Bilirubin AST 801 H ALT 109 H Alkaline Phosphatase Total Creatine Kinase 37512 H 59657 H CK-MB (CK-2) 41.5 H Troponin T 0.054 H C-Reactive Protein Serum Total Protein Total Protein 4.5 L Albumin 2.0 L Ounsm-7-Ixvyclhxh Nmmsd-9-Xogpcjzwy PEP Interpretation Triglycerides LDL Cholesterol Direct HDL Cholesterol Free T4 PTH Intact Urine WBC (Auto) Urine Creatinine Salicylates Acetaminophen Crossmatch 03/17/19 03/17/19 03/17/19 05:47 07:16 07:16 WBC RBC Hgb Hct MCV MCH MCHC RDW Plt Count Lymph % (Auto) [place] % (Auto) Eos % (Auto) Lymph # [place] # Eos # Seg Neutrophils % Seg Neuts % (Manual) Lymphocytes % (Manual) Monocytes % (Manual) Nucleated RBC % Seg Neutrophils # Seg Neutrophils # Man Lymphocytes # (Manual) Monocytes # (Manual) PT INR D-Dimer Heparin Anti-Xa Level POC ABG pH 7.193 L ABG pH POC ABG pCO2 45.2 H POC ABG pO2 65 L ABG pO2 ABG HCO3 ABG O2 Saturation ABG Base Excess ABG Hemoglobin Oxyhemoglobin Sodium Potassium Chloride Carbon Dioxide BUN Creatinine Glucose POC Glucose Lactic Acid 5.50 H* Calcium Ionized Calcium Phosphorus Magnesium Iron TIBC Ferritin Total Bilirubin Direct Bilirubin AST ALT Alkaline Phosphatase Total Creatine Kinase 34934 H CK-MB (CK-2) 54.3 H Troponin T 0.058 H C-Reactive Protein Serum Total Protein Total Protein Albumin Wwspw-0-Zrimkzqfh Wbptk-6-Fkkvfdflo PEP Interpretation Triglycerides LDL Cholesterol Direct HDL Cholesterol Free T4 PTH Intact Urine WBC (Auto) Urine Creatinine Salicylates Acetaminophen Crossmatch 03/17/19 03/17/19 03/17/19 11:52 12:51 13:01 WBC RBC Hgb Hct MCV MCH MCHC RDW Plt Count Lymph % (Auto) [place] % (Auto) Eos % (Auto) Lymph # [place] # Eos # Seg Neutrophils % Seg Neuts % (Manual) Lymphocytes % (Manual) Monocytes % (Manual) Nucleated RBC % Seg Neutrophils # Seg Neutrophils # Man Lymphocytes # (Manual) Monocytes # (Manual) PT INR D-Dimer Heparin Anti-Xa Level POC ABG pH 7.154 L ABG pH POC ABG pCO2 34.3 L POC ABG pO2 73 L ABG pO2 ABG HCO3 ABG O2 Saturation ABG Base Excess ABG Hemoglobin Oxyhemoglobin Sodium Potassium Chloride Carbon Dioxide BUN Creatinine Glucose POC Glucose 60 L Lactic Acid 8.20 H* Calcium Ionized Calcium Phosphorus Magnesium Iron TIBC Ferritin Total Bilirubin Direct Bilirubin AST ALT Alkaline Phosphatase Total Creatine Kinase CK-MB (CK-2) Troponin T C-Reactive Protein Serum Total Protein Total Protein Albumin Mfvre-5-Mltggzzvg Fubku-5-Uyoxjlnno PEP Interpretation Triglycerides LDL Cholesterol Direct HDL Cholesterol Free T4 PTH Intact Urine WBC (Auto) Urine Creatinine Salicylates Acetaminophen Crossmatch 03/17/19 03/17/19 03/17/19 14:37 14:37 14:37 WBC 29.3 H RBC Hgb Hct MCV MCH MCHC RDW 15.8 H Plt Count 45 L Lymph % (Auto) [place] % (Auto) Eos % (Auto) Lymph # [place] # Eos # Seg Neutrophils % Seg Neuts % (Manual) 81.0 H Lymphocytes % (Manual) 1.0 L Monocytes % (Manual) 15.0 H Nucleated RBC % Seg Neutrophils # Seg Neutrophils # Man 23.7 H Lymphocytes # (Manual) 0.3 L Monocytes # (Manual) 4.4 H PT INR D-Dimer Heparin Anti-Xa Level POC ABG pH ABG pH POC ABG pCO2 POC ABG pO2 ABG pO2 ABG HCO3 ABG O2 Saturation ABG Base Excess ABG Hemoglobin Oxyhemoglobin Sodium Potassium Chloride Carbon Dioxide BUN Creatinine Glucose POC Glucose Lactic Acid 4.90 H* Calcium Ionized Calcium Phosphorus Magnesium Iron TIBC Ferritin Total Bilirubin Direct Bilirubin AST ALT Alkaline Phosphatase Total Creatine Kinase CK-MB (CK-2) Troponin T C-Reactive Protein 24.90 H Serum Total Protein Total Protein Albumin Zyliz-4-Ycboxehpy Fdxtr-4-Xvcipwjou PEP Interpretation Triglycerides LDL Cholesterol Direct HDL Cholesterol Free T4 PTH Intact Urine WBC (Auto) Urine Creatinine Salicylates Acetaminophen Crossmatch 03/17/19 03/17/19 03/17/19 16:05 16:05 17:02 WBC RBC Hgb Hct MCV MCH MCHC RDW Plt Count Lymph % (Auto) [place] % (Auto) Eos % (Auto) Lymph # [place] # Eos # Seg Neutrophils % Seg Neuts % (Manual) Lymphocytes % (Manual) Monocytes % (Manual) Nucleated RBC % Seg Neutrophils # Seg Neutrophils # Man Lymphocytes # (Manual) Monocytes # (Manual) PT INR D-Dimer Heparin Anti-Xa Level POC ABG pH 7.183 L ABG pH POC ABG pCO2 POC ABG pO2 65 L ABG pO2 ABG HCO3 ABG O2 Saturation ABG Base Excess ABG Hemoglobin Oxyhemoglobin Sodium Potassium Chloride Carbon Dioxide BUN Creatinine Glucose POC Glucose Lactic Acid Calcium Ionized Calcium Phosphorus Magnesium Iron TIBC Ferritin Total Bilirubin Direct Bilirubin AST ALT Alkaline Phosphatase Total Creatine Kinase CK-MB (CK-2) Troponin T C-Reactive Protein Serum Total Protein Total Protein Albumin Hbaho-6-Wkbkmbolk Ctvlv-8-Ovbixvgcn PEP Interpretation Triglycerides LDL Cholesterol Direct HDL Cholesterol Free T4 PTH Intact Urine WBC (Auto) 30.0 H Urine Creatinine 106.6 H Salicylates Acetaminophen Crossmatch 03/18/19 03/18/19 03/18/19 05:12 05:16 05:53 WBC RBC Hgb Hct MCV MCH MCHC RDW Plt Count Lymph % (Auto) [place] % (Auto) Eos % (Auto) Lymph # [place] # Eos # Seg Neutrophils % Seg Neuts % (Manual) Lymphocytes % (Manual) Monocytes % (Manual) Nucleated RBC % Seg Neutrophils # Seg Neutrophils # Man Lymphocytes # (Manual) Monocytes # (Manual) PT INR D-Dimer Heparin Anti-Xa Level POC ABG pH 7.257 L ABG pH POC ABG pCO2 31.6 L POC ABG pO2 69 L ABG pO2 ABG HCO3 ABG O2 Saturation ABG Base Excess ABG Hemoglobin Oxyhemoglobin Sodium Potassium Chloride Carbon Dioxide BUN Creatinine Glucose POC Glucose 141 H Lactic Acid 5.00 H* Calcium Ionized Calcium Phosphorus Magnesium Iron TIBC Ferritin Total Bilirubin Direct Bilirubin AST ALT Alkaline Phosphatase Total Creatine Kinase CK-MB (CK-2) Troponin T C-Reactive Protein Serum Total Protein Total Protein Albumin Iuozm-9-Qehlxeaky Njhed-7-Ocajtyynj PEP Interpretation Triglycerides LDL Cholesterol Direct HDL Cholesterol Free T4 PTH Intact Urine WBC (Auto) Urine Creatinine Salicylates Acetaminophen Crossmatch 03/18/19 03/18/19 03/18/19 06:57 08:40 08:40 WBC 31.7 H RBC Hgb Hct MCV MCH MCHC RDW 15.5 H Plt Count 35 L Lymph % (Auto) [place] % (Auto) Eos % (Auto) Lymph # [place] # Eos # Seg Neutrophils % Seg Neuts % (Manual) Lymphocytes % (Manual) Monocytes % (Manual) Nucleated RBC % Seg Neutrophils # Seg Neutrophils # Man Lymphocytes # (Manual) Monocytes # (Manual) PT INR D-Dimer Heparin Anti-Xa Level POC ABG pH ABG pH POC ABG pCO2 POC ABG pO2 ABG pO2 ABG HCO3 ABG O2 Saturation ABG Base Excess ABG Hemoglobin Oxyhemoglobin Sodium 132 L Potassium 5.5 H D Chloride 88.5 L Carbon Dioxide 18 L BUN 71 H Creatinine 8.1 H Glucose 205 H POC Glucose Lactic Acid 5.00 H* Calcium 4.1 L* D Ionized Calcium Phosphorus Magnesium 2.40 H Iron TIBC Ferritin Total Bilirubin 7.50 H Direct Bilirubin AST 1088 H ALT 159 H Alkaline Phosphatase 190 H Total Creatine Kinase 546336 H CK-MB (CK-2) Troponin T C-Reactive Protein Serum Total Protein Total Protein 4.7 L Albumin 1.8 L Sqdze-6-Xpmbwuvsi Gkbvt-1-Tgajzvwlw PEP Interpretation Triglycerides LDL Cholesterol Direct HDL Cholesterol Free T4 PTH Intact Urine WBC (Auto) Urine Creatinine Salicylates Acetaminophen Crossmatch 03/18/19 03/18/19 03/18/19 12:33 12:50 13:19 WBC RBC Hgb Hct MCV MCH MCHC RDW Plt Count Lymph % (Auto) [place] % (Auto) Eos % (Auto) Lymph # [place] # Eos # Seg Neutrophils % Seg Neuts % (Manual) Lymphocytes % (Manual) Monocytes % (Manual) Nucleated RBC % Seg Neutrophils # Seg Neutrophils # Man Lymphocytes # (Manual) Monocytes # (Manual) PT INR D-Dimer Heparin Anti-Xa Level POC ABG pH 7.282 L ABG pH POC ABG pCO2 POC ABG pO2 67 L ABG pO2 ABG HCO3 ABG O2 Saturation ABG Base Excess ABG Hemoglobin Oxyhemoglobin Sodium Potassium Chloride Carbon Dioxide BUN Creatinine Glucose POC Glucose 129 H Lactic Acid 3.30 H* Calcium Ionized Calcium Phosphorus Magnesium Iron TIBC Ferritin Total Bilirubin Direct Bilirubin AST ALT Alkaline Phosphatase Total Creatine Kinase CK-MB (CK-2) Troponin T C-Reactive Protein Serum Total Protein Total Protein Albumin Wocsf-8-Yxiwbacyi Jygjz-0-Gcdmmgulx PEP Interpretation Triglycerides LDL Cholesterol Direct HDL Cholesterol Free T4 PTH Intact Urine WBC (Auto) Urine Creatinine Salicylates Acetaminophen Crossmatch 03/18/19 03/18/19 03/18/19 13:19 16:50 18:11 WBC RBC Hgb Hct MCV MCH MCHC RDW Plt Count Lymph % (Auto) [place] % (Auto) Eos % (Auto) Lymph # [place] # Eos # Seg Neutrophils % Seg Neuts % (Manual) Lymphocytes % (Manual) Monocytes % (Manual) Nucleated RBC % Seg Neutrophils # Seg Neutrophils # Man Lymphocytes # (Manual) Monocytes # (Manual) PT INR D-Dimer Heparin Anti-Xa Level POC ABG pH ABG pH POC ABG pCO2 POC ABG pO2 59 L ABG pO2 ABG HCO3 ABG O2 Saturation ABG Base Excess ABG Hemoglobin Oxyhemoglobin Sodium Potassium Chloride Carbon Dioxide BUN Creatinine Glucose POC Glucose 151 H Lactic Acid Calcium 4.2 L* Ionized Calcium Phosphorus Magnesium Iron TIBC Ferritin Total Bilirubin Direct Bilirubin AST ALT Alkaline Phosphatase Total Creatine Kinase 047993 H CK-MB (CK-2) Troponin T C-Reactive Protein Serum Total Protein Total Protein Albumin Ujxqc-1-Dslnubujw Vzcgp-1-Mnnrwurqu PEP Interpretation Triglycerides LDL Cholesterol Direct HDL Cholesterol Free T4 PTH Intact Urine WBC (Auto) Urine Creatinine Salicylates Acetaminophen Crossmatch 03/18/19 03/18/19 03/19/19 18:20 23:39 01:42 WBC RBC Hgb Hct MCV MCH MCHC RDW Plt Count Lymph % (Auto) [place] % (Auto) Eos % (Auto) Lymph # [place] # Eos # Seg Neutrophils % Seg Neuts % (Manual) Lymphocytes % (Manual) Monocytes % (Manual) Nucleated RBC % Seg Neutrophils # Seg Neutrophils # Man Lymphocytes # (Manual) Monocytes # (Manual) PT INR D-Dimer Heparin Anti-Xa Level POC ABG pH 7.345 L ABG pH 7.285 L POC ABG pCO2 POC ABG pO2 59 L ABG pO2 44.0 L ABG HCO3 ABG O2 Saturation 70.9 L ABG Base Excess -5.7 L ABG Hemoglobin 11.9 L Oxyhemoglobin 69.6 L Sodium Potassium Chloride Carbon Dioxide BUN Creatinine Glucose POC Glucose 152 H Lactic Acid Calcium Ionized Calcium Phosphorus Magnesium Iron TIBC Ferritin Total Bilirubin Direct Bilirubin AST ALT Alkaline Phosphatase Total Creatine Kinase CK-MB (CK-2) Troponin T C-Reactive Protein Serum Total Protein Total Protein Albumin Clsvo-5-Dodquvesn Xnppv-6-Xjxkuwtul PEP Interpretation Triglycerides LDL Cholesterol Direct HDL Cholesterol Free T4 PTH Intact Urine WBC (Auto) Urine Creatinine Salicylates Acetaminophen Crossmatch 03/19/19 03/19/19 03/19/19 04:00 04:00 05:35 WBC 36.5 H RBC Hgb Hct MCV MCH MCHC RDW 15.8 H Plt Count 35 L Lymph % (Auto) [place] % (Auto) Eos % (Auto) Lymph # [place] # Eos # Seg Neutrophils % Seg Neuts % (Manual) Lymphocytes % (Manual) Monocytes % (Manual) Nucleated RBC % Seg Neutrophils # Seg Neutrophils # Man Lymphocytes # (Manual) Monocytes # (Manual) PT INR D-Dimer Heparin Anti-Xa Level POC ABG pH ABG pH 7.265 L POC ABG pCO2 POC ABG pO2 ABG pO2 35.4 L* ABG HCO3 ABG O2 Saturation 54.4 L ABG Base Excess -6.7 L ABG Hemoglobin 12.9 L Oxyhemoglobin 53.4 L Sodium 132 L Potassium 5.7 H Chloride 89.8 L Carbon Dioxide 19 L BUN 62 H Creatinine 6.4 H Glucose 151 H POC Glucose Lactic Acid Calcium 5.2 L* D Ionized Calcium Phosphorus Magnesium Iron TIBC Ferritin Total Bilirubin 7.80 H Direct Bilirubin AST 682 H ALT 130 H Alkaline Phosphatase 167 H Total Creatine Kinase CK-MB (CK-2) Troponin T C-Reactive Protein Serum Total Protein Total Protein 4.8 L Albumin 2.3 L Ertlh-4-Fhacmlhip Kuojg-4-Vgyzjasku PEP Interpretation Triglycerides LDL Cholesterol Direct HDL Cholesterol Free T4 PTH Intact Urine WBC (Auto) Urine Creatinine Salicylates Acetaminophen Crossmatch 03/19/19 03/19/19 03/19/19 05:49 09:16 09:50 WBC RBC Hgb Hct MCV MCH MCHC RDW Plt Count Lymph % (Auto) [place] % (Auto) Eos % (Auto) Lymph # [place] # Eos # Seg Neutrophils % Seg Neuts % (Manual) Lymphocytes % (Manual) Monocytes % (Manual) Nucleated RBC % Seg Neutrophils # Seg Neutrophils # Man Lymphocytes # (Manual) Monocytes # (Manual) PT INR D-Dimer Heparin Anti-Xa Level POC ABG pH 7.222 L ABG pH POC ABG pCO2 56.6 H POC ABG pO2 ABG pO2 ABG HCO3 ABG O2 Saturation ABG Base Excess ABG Hemoglobin Oxyhemoglobin Sodium Potassium Chloride Carbon Dioxide BUN Creatinine Glucose POC Glucose 154 H Lactic Acid 2.70 H* Calcium Ionized Calcium Phosphorus Magnesium Iron TIBC Ferritin Total Bilirubin Direct Bilirubin AST ALT Alkaline Phosphatase Total Creatine Kinase CK-MB (CK-2) Troponin T C-Reactive Protein Serum Total Protein Total Protein Albumin Nvgow-9-Wvqloqzyw Zlpvu-8-Ntyqhigof PEP Interpretation Triglycerides LDL Cholesterol Direct HDL Cholesterol Free T4 PTH Intact Urine WBC (Auto) Urine Creatinine Salicylates Acetaminophen Crossmatch 03/19/19 03/19/19 03/19/19 09:50 11:28 17:58 WBC RBC Hgb Hct MCV MCH MCHC RDW Plt Count Lymph % (Auto) [place] % (Auto) Eos % (Auto) Lymph # [place] # Eos # Seg Neutrophils % Seg Neuts % (Manual) Lymphocytes % (Manual) Monocytes % (Manual) Nucleated RBC % Seg Neutrophils # Seg Neutrophils # Man Lymphocytes # (Manual) Monocytes # (Manual) PT INR D-Dimer Heparin Anti-Xa Level POC ABG pH 7.250 L ABG pH POC ABG pCO2 52.6 H POC ABG pO2 ABG pO2 ABG HCO3 ABG O2 Saturation ABG Base Excess ABG Hemoglobin Oxyhemoglobin Sodium Potassium Chloride Carbon Dioxide BUN Creatinine Glucose POC Glucose 160 H Lactic Acid Calcium Ionized Calcium Phosphorus Magnesium Iron TIBC Ferritin Total Bilirubin Direct Bilirubin AST ALT Alkaline Phosphatase Total Creatine Kinase 43465 H CK-MB (CK-2) Troponin T C-Reactive Protein Serum Total Protein Total Protein Albumin Pfnsn-4-Atzuvqgrs Ihggj-1-Iiezpsnmm PEP Interpretation Triglycerides LDL Cholesterol Direct HDL Cholesterol Free T4 PTH Intact Urine WBC (Auto) Urine Creatinine Salicylates Acetaminophen Crossmatch 03/19/19 03/19/19 03/20/19 19:48 21:03 02:16 WBC RBC Hgb Hct MCV MCH MCHC RDW Plt Count Lymph % (Auto) [place] % (Auto) Eos % (Auto) Lymph # [place] # Eos # Seg Neutrophils % Seg Neuts % (Manual) Lymphocytes % (Manual) Monocytes % (Manual) Nucleated RBC % Seg Neutrophils # Seg Neutrophils # Man Lymphocytes # (Manual) Monocytes # (Manual) PT INR D-Dimer Heparin Anti-Xa Level POC ABG pH 7.279 L ABG pH POC ABG pCO2 50.3 H POC ABG pO2 129 H ABG pO2 ABG HCO3 ABG O2 Saturation ABG Base Excess ABG Hemoglobin Oxyhemoglobin Sodium Potassium Chloride Carbon Dioxide BUN Creatinine Glucose POC Glucose 119 H 119 H Lactic Acid Calcium Ionized Calcium Phosphorus Magnesium Iron TIBC Ferritin Total Bilirubin Direct Bilirubin AST ALT Alkaline Phosphatase Total Creatine Kinase CK-MB (CK-2) Troponin T C-Reactive Protein Serum Total Protein Total Protein Albumin Ygavu-[id number] PEP Interpretation Triglycerides LDL Cholesterol Direct HDL Cholesterol Free T4 PTH Intact Urine WBC (Auto) Urine Creatinine Salicylates Acetaminophen Crossmatch 03/20/19 03/20/19 03/20/19 04:23 05:05 09:30 WBC 36.3 H RBC Hgb Hct MCV MCH MCHC RDW 15.5 H Plt Count 29 L Lymph % (Auto) [place] % (Auto) Eos % (Auto) Lymph # [place] # Eos # Seg Neutrophils % Seg Neuts % (Manual) Lymphocytes % (Manual) Monocytes % (Manual) Nucleated RBC % Seg Neutrophils # Seg Neutrophils # Man Lymphocytes # (Manual) Monocytes # (Manual) PT INR D-Dimer Heparin Anti-Xa Level POC ABG pH ABG pH POC ABG pCO2 POC ABG pO2 280 H ABG pO2 ABG HCO3 ABG O2 Saturation ABG Base Excess ABG Hemoglobin Oxyhemoglobin Sodium Potassium Chloride Carbon Dioxide BUN Creatinine Glucose POC Glucose 115 H Lactic Acid Calcium Ionized Calcium Phosphorus Magnesium Iron TIBC Ferritin Total Bilirubin Direct Bilirubin AST ALT Alkaline Phosphatase Total Creatine Kinase CK-MB (CK-2) Troponin T C-Reactive Protein Serum Total Protein Total Protein Albumin Vrlqy-5-Kffwslhzm Amnms-3-Ewasrunjv PEP Interpretation Triglycerides LDL Cholesterol Direct HDL Cholesterol Free T4 PTH Intact Urine WBC (Auto) Urine Creatinine Salicylates Acetaminophen Crossmatch 03/20/19 03/20/19 03/20/19 09:30 09:30 11:34 WBC RBC Hgb Hct MCV MCH MCHC RDW Plt Count Lymph % (Auto) [place] % (Auto) Eos % (Auto) Lymph # [place] # Eos # Seg Neutrophils % Seg Neuts % (Manual) Lymphocytes % (Manual) Monocytes % (Manual) Nucleated RBC % Seg Neutrophils # Seg Neutrophils # Man Lymphocytes # (Manual) Monocytes # (Manual) PT INR D-Dimer Heparin Anti-Xa Level POC ABG pH ABG pH POC ABG pCO2 POC ABG pO2 ABG pO2 ABG HCO3 ABG O2 Saturation ABG Base Excess ABG Hemoglobin Oxyhemoglobin Sodium 131 L Potassium Chloride 92.3 L Carbon Dioxide 20 L BUN 68 H Creatinine 6.1 H Glucose 164 H POC Glucose 141 H Lactic Acid Calcium 5.3 L* Ionized Calcium Phosphorus Magnesium Iron TIBC Ferritin Total Bilirubin 9.50 H Direct Bilirubin AST 381 H ALT 116 H Alkaline Phosphatase 255 H Total Creatine Kinase 09229 H CK-MB (CK-2) Troponin T C-Reactive Protein Serum Total Protein Total Protein 5.1 L Albumin 2.3 L Tnsmu-5-Nmldmgbgf Xiwqf-7-Qfhlitvgm PEP Interpretation Triglycerides LDL Cholesterol Direct HDL Cholesterol Free T4 PTH Intact Urine WBC (Auto) Urine Creatinine Salicylates Acetaminophen Crossmatch 03/20/19 03/20/19 03/20/19 14:41 14:45 18:50 WBC RBC Hgb Hct MCV MCH MCHC RDW Plt Count Lymph % (Auto) [place] % (Auto) Eos % (Auto) Lymph # [place] # Eos # Seg Neutrophils % Seg Neuts % (Manual) Lymphocytes % (Manual) Monocytes % (Manual) Nucleated RBC % Seg Neutrophils # Seg Neutrophils # Man Lymphocytes # (Manual) Monocytes # (Manual) PT INR D-Dimer Heparin Anti-Xa Level POC ABG pH ABG pH POC ABG pCO2 POC ABG pO2 ABG pO2 ABG HCO3 ABG O2 Saturation ABG Base Excess ABG Hemoglobin Oxyhemoglobin Sodium Potassium Chloride Carbon Dioxide BUN Creatinine Glucose POC Glucose 117 H Lactic Acid 2.90 H* Calcium Ionized Calcium Phosphorus Magnesium Iron TIBC Ferritin Total Bilirubin Direct Bilirubin AST ALT Alkaline Phosphatase Total Creatine Kinase CK-MB (CK-2) Troponin T C-Reactive Protein 13.30 H Serum Total Protein Total Protein Albumin Klmaw-5-Zsotrgmyd Laxyu-1-Eoytyewwe PEP Interpretation Triglycerides LDL Cholesterol Direct HDL Cholesterol Free T4 PTH Intact Urine WBC (Auto) Urine Creatinine Salicylates Acetaminophen Crossmatch 03/20/19 03/21/19 03/21/19 21:55 04:26 04:26 WBC 37.8 H RBC Hgb Hct MCV MCH MCHC RDW 15.4 H Plt Count 36 L Lymph % (Auto) [place] % (Auto) Eos % (Auto) Lymph # [place] # Eos # Seg Neutrophils % Seg Neuts % (Manual) 93.0 H Lymphocytes % (Manual) 3.0 L Monocytes % (Manual) Nucleated RBC % 1.0 H Seg Neutrophils # 34.6 H Seg Neutrophils # Man 35.2 H Lymphocytes # (Manual) 1.1 L Monocytes # (Manual) PT INR D-Dimer Heparin Anti-Xa Level POC ABG pH ABG pH POC ABG pCO2 POC ABG pO2 ABG pO2 ABG HCO3 ABG O2 Saturation ABG Base Excess ABG Hemoglobin Oxyhemoglobin Sodium 131 L Potassium Chloride 90.7 L Carbon Dioxide 21 L BUN 69 H Creatinine 5.7 H Glucose 170 H POC Glucose 128 H Lactic Acid Calcium 6.1 L D Ionized Calcium Phosphorus Magnesium Iron TIBC Ferritin Total Bilirubin 9.50 H Direct Bilirubin AST 308 H ALT 124 H Alkaline Phosphatase 327 H Total Creatine Kinase 55045 H CK-MB (CK-2) Troponin T C-Reactive Protein Serum Total Protein Total Protein 5.7 L Albumin 2.6 L Ipopz-6-Tanryjdam Acqkg-8-Cuidstfmw PEP Interpretation Triglycerides LDL Cholesterol Direct HDL Cholesterol Free T4 PTH Intact Urine WBC (Auto) Urine Creatinine Salicylates Acetaminophen Crossmatch 03/21/19 03/21/19 03/21/19 05:17 05:39 08:29 WBC RBC Hgb Hct MCV MCH MCHC RDW Plt Count Lymph % (Auto) [place] % (Auto) Eos % (Auto) Lymph # [place] # Eos # Seg Neutrophils % Seg Neuts % (Manual) Lymphocytes % (Manual) Monocytes % (Manual) Nucleated RBC % Seg Neutrophils # Seg Neutrophils # Man Lymphocytes # (Manual) Monocytes # (Manual) PT INR D-Dimer Heparin Anti-Xa Level POC ABG pH ABG pH POC ABG pCO2 POC ABG pO2 209 H ABG pO2 ABG HCO3 ABG O2 Saturation ABG Base Excess ABG Hemoglobin Oxyhemoglobin Sodium Potassium Chloride Carbon Dioxide BUN Creatinine Glucose POC Glucose 145 H Lactic Acid Calcium Ionized Calcium Phosphorus Magnesium Iron TIBC Ferritin Total Bilirubin Direct Bilirubin AST ALT Alkaline Phosphatase Total Creatine Kinase 09552 H CK-MB (CK-2) Troponin T C-Reactive Protein Serum Total Protein Total Protein Albumin Glycl-0-Dtrobweuy Xxshw-8-Stiiggrcq PEP Interpretation Triglycerides LDL Cholesterol Direct HDL Cholesterol Free T4 PTH Intact Urine WBC (Auto) Urine Creatinine Salicylates Acetaminophen Crossmatch 03/21/19 03/21/19 03/21/19 08:29 11:43 12:00 WBC RBC Hgb Hct MCV MCH MCHC RDW Plt Count Lymph % (Auto) [place] % (Auto) Eos % (Auto) Lymph # [place] # Eos # Seg Neutrophils % Seg Neuts % (Manual) Lymphocytes % (Manual) Monocytes % (Manual) Nucleated RBC % Seg Neutrophils # Seg Neutrophils # Man Lymphocytes # (Manual) Monocytes # (Manual) PT INR D-Dimer Heparin Anti-Xa Level POC ABG pH ABG pH POC ABG pCO2 POC ABG pO2 ABG pO2 ABG HCO3 ABG O2 Saturation ABG Base Excess ABG Hemoglobin Oxyhemoglobin Sodium Potassium Chloride Carbon Dioxide BUN Creatinine Glucose POC Glucose 123 H Lactic Acid 2.60 H* 2.20 H* Calcium Ionized Calcium Phosphorus Magnesium Iron TIBC Ferritin Total Bilirubin Direct Bilirubin AST ALT Alkaline Phosphatase Total Creatine Kinase CK-MB (CK-2) Troponin T C-Reactive Protein Serum Total Protein Total Protein Albumin Tuwex-3-Bpzhzljoh Tegli-7-Mqaergiep PEP Interpretation Triglycerides LDL Cholesterol Direct HDL Cholesterol Free T4 PTH Intact Urine WBC (Auto) Urine Creatinine Salicylates Acetaminophen Crossmatch 03/21/19 03/21/19 03/21/19 14:11 18:28 19:32 WBC RBC Hgb Hct MCV MCH MCHC RDW Plt Count Lymph % (Auto) [place] % (Auto) Eos % (Auto) Lymph # [place] # Eos # Seg Neutrophils % Seg Neuts % (Manual) Lymphocytes % (Manual) Monocytes % (Manual) Nucleated RBC % Seg Neutrophils # Seg Neutrophils # Man Lymphocytes # (Manual) Monocytes # (Manual) PT INR D-Dimer Heparin Anti-Xa Level POC ABG pH 7.293 L ABG pH POC ABG pCO2 POC ABG pO2 ABG pO2 ABG HCO3 ABG O2 Saturation ABG Base Excess ABG Hemoglobin Oxyhemoglobin Sodium Potassium Chloride Carbon Dioxide BUN Creatinine Glucose POC Glucose 153 H Lactic Acid 2.10 H* Calcium Ionized Calcium Phosphorus Magnesium Iron TIBC Ferritin Total Bilirubin Direct Bilirubin AST ALT Alkaline Phosphatase Total Creatine Kinase CK-MB (CK-2) Troponin T C-Reactive Protein Serum Total Protein Total Protein Albumin Xzkhn-4-Kckikenud Mdfpl-9-Ylpazwajb PEP Interpretation Triglycerides LDL Cholesterol Direct HDL Cholesterol Free T4 PTH Intact Urine WBC (Auto) Urine Creatinine Salicylates Acetaminophen Crossmatch 03/21/19 03/22/19 03/22/19 23:38 05:08 05:51 WBC RBC Hgb Hct MCV MCH MCHC RDW Plt Count Lymph % (Auto) [place] % (Auto) Eos % (Auto) Lymph # [place] # Eos # Seg Neutrophils % Seg Neuts % (Manual) Lymphocytes % (Manual) Monocytes % (Manual) Nucleated RBC % Seg Neutrophils # Seg Neutrophils # Man Lymphocytes # (Manual) Monocytes # (Manual) PT INR D-Dimer Heparin Anti-Xa Level POC ABG pH 7.283 L ABG pH POC ABG pCO2 POC ABG pO2 53 L ABG pO2 ABG HCO3 ABG O2 Saturation ABG Base Excess ABG Hemoglobin Oxyhemoglobin Sodium Potassium Chloride Carbon Dioxide BUN Creatinine Glucose POC Glucose 149 H 131 H Lactic Acid Calcium Ionized Calcium Phosphorus Magnesium Iron TIBC Ferritin Total Bilirubin Direct Bilirubin AST ALT Alkaline Phosphatase Total Creatine Kinase CK-MB (CK-2) Troponin T C-Reactive Protein Serum Total Protein Total Protein Albumin Rmnmw-3-Stmdpjbji Kunaa-8-Bbpdanfhl PEP Interpretation Triglycerides LDL Cholesterol Direct HDL Cholesterol Free T4 PTH Intact Urine WBC (Auto) Urine Creatinine Salicylates Acetaminophen Crossmatch 03/22/19 03/22/19 03/22/19 08:00 08:00 18:19 WBC 36.7 H RBC Hgb 11.0 L Hct 33.5 L MCV MCH MCHC RDW 15.5 H Plt Count 43 L Lymph % (Auto) [place] % (Auto) Eos % (Auto) Lymph # [place] # Eos # Seg Neutrophils % Seg Neuts % (Manual) 87.0 H Lymphocytes % (Manual) 7.0 L Monocytes % (Manual) Nucleated RBC % Seg Neutrophils # Seg Neutrophils # Man 31.9 H Lymphocytes # (Manual) Monocytes # (Manual) PT INR D-Dimer Heparin Anti-Xa Level POC ABG pH ABG pH POC ABG pCO2 46.4 H POC ABG pO2 108 H ABG pO2 ABG HCO3 ABG O2 Saturation ABG Base Excess ABG Hemoglobin Oxyhemoglobin Sodium 132 L Potassium 5.6 H Chloride 89.6 L Carbon Dioxide 20 L BUN 101 H Creatinine 7.4 H Glucose 124 H POC Glucose Lactic Acid Calcium 5.2 L* Ionized Calcium Phosphorus Magnesium Iron TIBC Ferritin Total Bilirubin 2.80 H Direct Bilirubin AST 119 H ALT 86 H Alkaline Phosphatase 245 H Total Creatine Kinase CK-MB (CK-2) Troponin T C-Reactive Protein Serum Total Protein Total Protein 5.6 L Albumin 2.5 L Tzwbq-6-Kxwahluje Fdmrw-7-Gbbggwwoi PEP Interpretation Triglycerides LDL Cholesterol Direct HDL Cholesterol Free T4 PTH Intact Urine WBC (Auto) Urine Creatinine Salicylates Acetaminophen Crossmatch 03/22/19 03/23/19 03/23/19 20:37 04:49 05:28 WBC 35.9 H RBC Hgb 10.8 L Hct 33.2 L MCV MCH MCHC RDW 15.5 H Plt Count 49 L Lymph % (Auto) [place] % (Auto) Eos % (Auto) Lymph # [place] # Eos # Seg Neutrophils % Seg Neuts % (Manual) 81.0 H Lymphocytes % (Manual) 3.5 L Monocytes % (Manual) Nucleated RBC % Seg Neutrophils # Seg Neutrophils # Man 29.1 H Lymphocytes # (Manual) Monocytes # (Manual) 1.4 H PT INR D-Dimer Heparin Anti-Xa Level POC ABG pH 7.296 L ABG pH POC ABG pCO2 46.2 H POC ABG pO2 ABG pO2 ABG HCO3 ABG O2 Saturation ABG Base Excess ABG Hemoglobin Oxyhemoglobin Sodium 129 L Potassium 5.2 H Chloride 91.1 L Carbon Dioxide BUN 91 H Creatinine 6.6 H Glucose 190 H POC Glucose Lactic Acid Calcium 5.3 L* Ionized Calcium Phosphorus Magnesium Iron TIBC Ferritin Total Bilirubin 1.80 H Direct Bilirubin AST 80 H ALT 62 H Alkaline Phosphatase 209 H Total Creatine Kinase 9758 H CK-MB (CK-2) Troponin T C-Reactive Protein Serum Total Protein Total Protein 5.2 L Albumin 2.2 L Vqmnb-9-Lfygjgfge Jhcar-0-Zyzgspodm PEP Interpretation Triglycerides LDL Cholesterol Direct HDL Cholesterol Free T4 PTH Intact Urine WBC (Auto) Urine Creatinine Salicylates Acetaminophen Crossmatch 03/23/19 03/23/19 03/23/19 05:28 05:31 11:33 WBC 29.7 H RBC 3.59 L Hgb 10.1 L Hct 31.1 L MCV MCH MCHC RDW 15.4 H Plt Count 47 L Lymph % (Auto) [place] % (Auto) Eos % (Auto) Lymph # [place] # Eos # Seg Neutrophils % Seg Neuts % (Manual) 89.0 H Lymphocytes % (Manual) 6.0 L Monocytes % (Manual) Nucleated RBC % 1.0 H Seg Neutrophils # Seg Neutrophils # Man 26.4 H Lymphocytes # (Manual) Monocytes # (Manual) PT INR D-Dimer Heparin Anti-Xa Level POC ABG pH ABG pH POC ABG pCO2 POC ABG pO2 ABG pO2 ABG HCO3 ABG O2 Saturation ABG Base Excess ABG Hemoglobin Oxyhemoglobin Sodium Potassium Chloride Carbon Dioxide BUN Creatinine Glucose POC Glucose 122 H 113 H Lactic Acid Calcium Ionized Calcium Phosphorus Magnesium Iron TIBC Ferritin Total Bilirubin Direct Bilirubin AST ALT Alkaline Phosphatase Total Creatine Kinase CK-MB (CK-2) Troponin T C-Reactive Protein Serum Total Protein Total Protein Albumin Jpgjv-8-Lyphsetnf Fsvqb-3-Lgpithpuu PEP Interpretation Triglycerides LDL Cholesterol Direct HDL Cholesterol Free T4 PTH Intact Urine WBC (Auto) Urine Creatinine Salicylates Acetaminophen Crossmatch 03/23/19 03/24/19 03/24/19 17:47 00:00 04:50 WBC 35.0 H RBC Hgb 10.4 L Hct 32.4 L MCV MCH MCHC RDW Plt Count 60 L Lymph % (Auto) [place] % (Auto) Eos % (Auto) Lymph # [place] # Eos # Seg Neutrophils % Seg Neuts % (Manual) 93.0 H Lymphocytes % (Manual) 5.0 L Monocytes % (Manual) Nucleated RBC % 7.0 H Seg Neutrophils # Seg Neutrophils # Man 32.6 H Lymphocytes # (Manual) Monocytes # (Manual) PT INR D-Dimer Heparin Anti-Xa Level POC ABG pH ABG pH POC ABG pCO2 POC ABG pO2 ABG pO2 ABG HCO3 ABG O2 Saturation ABG Base Excess ABG Hemoglobin Oxyhemoglobin Sodium Potassium Chloride Carbon Dioxide BUN Creatinine Glucose POC Glucose 111 H 108 H Lactic Acid Calcium Ionized Calcium Phosphorus Magnesium Iron TIBC Ferritin Total Bilirubin Direct Bilirubin AST ALT Alkaline Phosphatase Total Creatine Kinase CK-MB (CK-2) Troponin T C-Reactive Protein Serum Total Protein Total Protein Albumin Xoxwn-6-Wmowisuoy Rjkyf-1-Xgifilarx PEP Interpretation Triglycerides LDL Cholesterol Direct HDL Cholesterol Free T4 PTH Intact Urine WBC (Auto) Urine Creatinine Salicylates Acetaminophen Crossmatch 03/24/19 03/24/19 03/24/19 04:50 05:06 12:55 WBC RBC Hgb Hct MCV MCH MCHC RDW Plt Count Lymph % (Auto) [place] % (Auto) Eos % (Auto) Lymph # [place] # Eos # Seg Neutrophils % Seg Neuts % (Manual) Lymphocytes % (Manual) Monocytes % (Manual) Nucleated RBC % Seg Neutrophils # Seg Neutrophils # Man Lymphocytes # (Manual) Monocytes # (Manual) PT INR D-Dimer Heparin Anti-Xa Level POC ABG pH ABG pH POC ABG pCO2 POC ABG pO2 ABG pO2 ABG HCO3 ABG O2 Saturation ABG Base Excess ABG Hemoglobin Oxyhemoglobin Sodium 134 L Potassium 5.1 H Chloride 95.3 L Carbon Dioxide 21 L BUN 85 H Creatinine 6.4 H Glucose 109 H POC Glucose 112 H 110 H Lactic Acid Calcium 5.8 L* Ionized Calcium Phosphorus Magnesium Iron TIBC Ferritin Total Bilirubin Direct Bilirubin AST ALT Alkaline Phosphatase Total Creatine Kinase 5747 H CK-MB (CK-2) Troponin T C-Reactive Protein Serum Total Protein Total Protein Albumin Qtrvw-9-Mklmmvcke Wdbxs-9-Gwagkdelp PEP Interpretation Triglycerides LDL Cholesterol Direct HDL Cholesterol Free T4 PTH Intact Urine WBC (Auto) Urine Creatinine Salicylates Acetaminophen Crossmatch 03/24/19 03/25/19 03/25/19 23:29 05:00 05:00 WBC RBC Hgb Hct MCV MCH MCHC RDW Plt Count Lymph % (Auto) [place] % (Auto) Eos % (Auto) Lymph # [place] # Eos # Seg Neutrophils % Seg Neuts % (Manual) Lymphocytes % (Manual) Monocytes % (Manual) Nucleated RBC % Seg Neutrophils # Seg Neutrophils # Man Lymphocytes # (Manual) Monocytes # (Manual) PT INR D-Dimer Heparin Anti-Xa Level POC ABG pH ABG pH POC ABG pCO2 POC ABG pO2 ABG pO2 ABG HCO3 ABG O2 Saturation ABG Base Excess ABG Hemoglobin Oxyhemoglobin Sodium 133 L Potassium Chloride 94.0 L Carbon Dioxide 21 L BUN 81 H Creatinine 6.4 H Glucose POC Glucose 109 H Lactic Acid Calcium 5.5 L* Ionized Calcium Phosphorus Magnesium Iron TIBC Ferritin Total Bilirubin Direct Bilirubin AST 80 H ALT Alkaline Phosphatase 202 H Total Creatine Kinase 3589 H CK-MB (CK-2) Troponin T C-Reactive Protein Serum Total Protein Total Protein 5.3 L Albumin 2.4 L Umszr-2-Zbiadvsgn Osfvw-0-Fpcycedqm PEP Interpretation Triglycerides LDL Cholesterol Direct HDL Cholesterol Free T4 PTH Intact 329.9 H Urine WBC (Auto) Urine Creatinine Salicylates Acetaminophen Crossmatch 03/25/19 03/25/19 03/26/19 05:00 06:30 04:30 WBC 23.3 H RBC 3.61 L Hgb 10.2 L Hct 31.2 L MCV MCH MCHC RDW Plt Count 57 L Lymph % (Auto) [place] % (Auto) Eos % (Auto) Lymph # [place] # Eos # Seg Neutrophils % Seg Neuts % (Manual) 92.0 H Lymphocytes % (Manual) 6.0 L Monocytes % (Manual) Nucleated RBC % Seg Neutrophils # Seg Neutrophils # Man 21.4 H Lymphocytes # (Manual) Monocytes # (Manual) PT INR D-Dimer Heparin Anti-Xa Level POC ABG pH ABG pH 7.326 L POC ABG pCO2 POC ABG pO2 ABG pO2 109.5 H 137.4 H ABG HCO3 18.8 L 18.6 L ABG O2 Saturation ABG Base Excess -4.4 L -6.8 L ABG Hemoglobin 10.1 L 9.9 L Oxyhemoglobin Sodium Potassium Chloride Carbon Dioxide BUN Creatinine Glucose POC Glucose Lactic Acid Calcium Ionized Calcium Phosphorus Magnesium Iron TIBC Ferritin Total Bilirubin Direct Bilirubin AST ALT Alkaline Phosphatase Total Creatine Kinase CK-MB (CK-2) Troponin T C-Reactive Protein Serum Total Protein Total Protein Albumin Obfge-9-Olxupahkk Mdrvb-0-Kxqtugnsk PEP Interpretation Triglycerides LDL Cholesterol Direct HDL Cholesterol Free T4 PTH Intact Urine WBC (Auto) Urine Creatinine Salicylates Acetaminophen Crossmatch 03/26/19 03/26/19 03/26/19 23:22 Unknown Unknown WBC 19.5 H RBC 3.44 L Hgb 9.8 L Hct 29.9 L MCV MCH MCHC RDW Plt Count 85 L Lymph % (Auto) [place] % (Auto) Eos % (Auto) Lymph # [place] # Eos # Seg Neutrophils % Seg Neuts % (Manual) 95.0 H Lymphocytes % (Manual) 3.0 L Monocytes % (Manual) Nucleated RBC % Seg Neutrophils # Seg Neutrophils # Man 18.5 H Lymphocytes # (Manual) 0.6 L Monocytes # (Manual) PT INR D-Dimer Heparin Anti-Xa Level POC ABG pH ABG pH POC ABG pCO2 POC ABG pO2 ABG pO2 ABG HCO3 ABG O2 Saturation ABG Base Excess ABG Hemoglobin Oxyhemoglobin Sodium 135 L Potassium 5.2 H D Chloride 92.2 L Carbon Dioxide 18 L BUN 109 H Creatinine 8.5 H Glucose 117 H POC Glucose 69 L Lactic Acid Calcium 4.5 L* D Ionized Calcium Phosphorus Magnesium Iron TIBC Ferritin Total Bilirubin Direct Bilirubin AST ALT Alkaline Phosphatase Total Creatine Kinase 4527 H CK-MB (CK-2) Troponin T C-Reactive Protein Serum Total Protein Total Protein Albumin Ijtps-1-Xadwmedtj Zqlty-7-Rtbyqqepc PEP Interpretation Triglycerides LDL Cholesterol Direct HDL Cholesterol Free T4 PTH Intact Urine WBC (Auto) Urine Creatinine Salicylates Acetaminophen Crossmatch 03/27/19 03/27/19 03/27/19 04:30 04:30 09:00 WBC 19.2 H RBC 3.42 L Hgb 9.9 L Hct 30.0 L MCV MCH MCHC RDW Plt Count 84 L Lymph % (Auto) [place] % (Auto) Eos % (Auto) Lymph # [place] # Eos # Seg Neutrophils % Seg Neuts % (Manual) Lymphocytes % (Manual) Monocytes % (Manual) Nucleated RBC % Seg Neutrophils # Seg Neutrophils # Man Lymphocytes # (Manual) Monocytes # (Manual) PT INR D-Dimer Heparin Anti-Xa Level POC ABG pH ABG pH POC ABG pCO2 POC ABG pO2 ABG pO2 ABG HCO3 ABG O2 Saturation ABG Base Excess ABG Hemoglobin Oxyhemoglobin Sodium 135 L Potassium Chloride 93.5 L Carbon Dioxide BUN 84 H Creatinine 7.1 H Glucose POC Glucose Lactic Acid Calcium 5.0 L* Ionized Calcium Phosphorus Magnesium Iron TIBC Ferritin Total Bilirubin Direct Bilirubin AST 78 H ALT Alkaline Phosphatase 135 H Total Creatine Kinase 4677 H CK-MB (CK-2) Troponin T C-Reactive Protein Serum Total Protein Total Protein 4.8 L Albumin 2.3 L Ydurm-5-Xupgveykw Ifefo-7-Sjgycplwq PEP Interpretation Triglycerides 409 H LDL Cholesterol Direct HDL Cholesterol Free T4 PTH Intact Urine WBC (Auto) Urine Creatinine Salicylates Acetaminophen Crossmatch 03/27/19 03/27/19 03/27/19 12:37 14:15 14:15 WBC RBC Hgb 9.7 L Hct 29.5 L MCV MCH MCHC RDW Plt Count 87 L Lymph % (Auto) [place] % (Auto) Eos % (Auto) Lymph # [place] # Eos # Seg Neutrophils % Seg Neuts % (Manual) Lymphocytes % (Manual) Monocytes % (Manual) Nucleated RBC % Seg Neutrophils # Seg Neutrophils # Man Lymphocytes # (Manual) Monocytes # (Manual) PT 15.9 H INR 1.30 H D-Dimer Heparin Anti-Xa Level POC ABG pH ABG pH POC ABG pCO2 POC ABG pO2 ABG pO2 ABG HCO3 ABG O2 Saturation ABG Base Excess ABG Hemoglobin Oxyhemoglobin Sodium Potassium Chloride Carbon Dioxide BUN Creatinine Glucose POC Glucose 129 H Lactic Acid Calcium Ionized Calcium Phosphorus Magnesium Iron TIBC Ferritin Total Bilirubin Direct Bilirubin AST ALT Alkaline Phosphatase Total Creatine Kinase CK-MB (CK-2) Troponin T C-Reactive Protein Serum Total Protein Total Protein Albumin Hqbrc-1-Obvtkinoe Nseoa-8-Ruljnfbay PEP Interpretation Triglycerides LDL Cholesterol Direct HDL Cholesterol Free T4 PTH Intact Urine WBC (Auto) Urine Creatinine Salicylates Acetaminophen Crossmatch 03/27/19 03/27/19 03/27/19 18:00 19:22 19:23 WBC RBC Hgb Hct MCV MCH MCHC RDW Plt Count Lymph % (Auto) [place] % (Auto) Eos % (Auto) Lymph # [place] # Eos # Seg Neutrophils % Seg Neuts % (Manual) Lymphocytes % (Manual) Monocytes % (Manual) Nucleated RBC % Seg Neutrophils # Seg Neutrophils # Man Lymphocytes # (Manual) Monocytes # (Manual) PT INR D-Dimer Heparin Anti-Xa Level < 0.10 L POC ABG pH ABG pH POC ABG pCO2 POC ABG pO2 ABG pO2 ABG HCO3 ABG O2 Saturation ABG Base Excess ABG Hemoglobin Oxyhemoglobin Sodium Potassium Chloride Carbon Dioxide BUN Creatinine Glucose POC Glucose 121 H Lactic Acid Calcium Ionized Calcium Phosphorus Magnesium Iron TIBC Ferritin Total Bilirubin Direct Bilirubin AST ALT Alkaline Phosphatase Total Creatine Kinase 4517 H CK-MB (CK-2) Troponin T C-Reactive Protein Serum Total Protein Total Protein Albumin Dxfaq-1-Yxsjjdttj Hekdi-2-Pwstcjefx PEP Interpretation Triglycerides LDL Cholesterol Direct HDL Cholesterol Free T4 PTH Intact Urine WBC (Auto) Urine Creatinine Salicylates Acetaminophen Crossmatch 03/27/19 03/27/19 03/28/19 22:10 23:52 03:49 WBC RBC Hgb Hct MCV MCH MCHC RDW Plt Count Lymph % (Auto) [place] % (Auto) Eos % (Auto) Lymph # [place] # Eos # Seg Neutrophils % Seg Neuts % (Manual) Lymphocytes % (Manual) Monocytes % (Manual) Nucleated RBC % Seg Neutrophils # Seg Neutrophils # Man Lymphocytes # (Manual) Monocytes # (Manual) PT INR D-Dimer Heparin Anti-Xa Level POC ABG pH 7.338 L ABG pH POC ABG pCO2 33.1 L POC ABG pO2 ABG pO2 ABG HCO3 ABG O2 Saturation ABG Base Excess ABG Hemoglobin Oxyhemoglobin Sodium Potassium Chloride Carbon Dioxide BUN Creatinine Glucose POC Glucose 113 H 117 H Lactic Acid Calcium Ionized Calcium Phosphorus Magnesium Iron TIBC Ferritin Total Bilirubin Direct Bilirubin AST ALT Alkaline Phosphatase Total Creatine Kinase CK-MB (CK-2) Troponin T C-Reactive Protein Serum Total Protein Total Protein Albumin Oaxvn-9-Kftjflhzl Exjup-7-Pqobcecba PEP Interpretation Triglycerides LDL Cholesterol Direct HDL Cholesterol Free T4 PTH Intact Urine WBC (Auto) Urine Creatinine Salicylates Acetaminophen Crossmatch 03/28/19 03/28/19 03/28/19 05:13 05:13 06:18 WBC RBC Hgb Hct MCV MCH MCHC RDW Plt Count Lymph % (Auto) [place] % (Auto) Eos % (Auto) Lymph # [place] # Eos # Seg Neutrophils % Seg Neuts % (Manual) Lymphocytes % (Manual) Monocytes % (Manual) Nucleated RBC % Seg Neutrophils # Seg Neutrophils # Man Lymphocytes # (Manual) Monocytes # (Manual) PT INR D-Dimer Heparin Anti-Xa Level 0.23 L POC ABG pH ABG pH POC ABG pCO2 POC ABG pO2 ABG pO2 ABG HCO3 ABG O2 Saturation ABG Base Excess ABG Hemoglobin Oxyhemoglobin Sodium 135 L Potassium 5.5 H D Chloride 95.1 L Carbon Dioxide 16 L D BUN 129 H Creatinine 9.3 H Glucose 158 H POC Glucose 202 H Lactic Acid Calcium 4.0 L* D Ionized Calcium Phosphorus 12.40 H Magnesium Iron TIBC Ferritin Total Bilirubin Direct Bilirubin AST ALT Alkaline Phosphatase Total Creatine Kinase 4266 H CK-MB (CK-2) Troponin T C-Reactive Protein Serum Total Protein Total Protein Albumin Aslqr-4-Ednjjxqvr Lsldh-6-Vuaulowjz PEP Interpretation Triglycerides LDL Cholesterol Direct HDL Cholesterol Free T4 PTH Intact Urine WBC (Auto) Urine Creatinine Salicylates Acetaminophen Crossmatch 03/28/19 03/28/19 03/28/19 08:25 10:00 12:00 WBC RBC Hgb 4.9 L* D Hct 15.4 L* D MCV MCH MCHC RDW Plt Count Lymph % (Auto) [place] % (Auto) Eos % (Auto) Lymph # [place] # Eos # Seg Neutrophils % Seg Neuts % (Manual) Lymphocytes % (Manual) Monocytes % (Manual) Nucleated RBC % Seg Neutrophils # Seg Neutrophils # Man Lymphocytes # (Manual) Monocytes # (Manual) PT 17.9 H INR 1.52 H D-Dimer 4845.98 H Heparin Anti-Xa Level POC ABG pH ABG pH POC ABG pCO2 POC ABG pO2 ABG pO2 ABG HCO3 ABG O2 Saturation ABG Base Excess ABG Hemoglobin Oxyhemoglobin Sodium Potassium Chloride Carbon Dioxide BUN Creatinine Glucose POC Glucose Lactic Acid Calcium Ionized Calcium Phosphorus Magnesium Iron TIBC Ferritin Total Bilirubin Direct Bilirubin AST ALT Alkaline Phosphatase Total Creatine Kinase CK-MB (CK-2) Troponin T C-Reactive Protein Serum Total Protein Total Protein Albumin Lulzb-6-Wljrzgknr Umtme-7-[id number] PEP Interpretation Triglycerides LDL Cholesterol Direct HDL Cholesterol Free T4 PTH Intact Urine WBC (Auto) Urine Creatinine Salicylates Acetaminophen Crossmatch See Detail 03/28/19 03/28/19 03/28/19 12:28 14:10 17:43 WBC RBC Hgb 5.9 L* Hct 18.3 L* MCV MCH MCHC RDW Plt Count Lymph % (Auto) [place] % (Auto) Eos % (Auto) Lymph # [place] # Eos # Seg Neutrophils % Seg Neuts % (Manual) Lymphocytes % (Manual) Monocytes % (Manual) Nucleated RBC % Seg Neutrophils # Seg Neutrophils # Man Lymphocytes # (Manual) Monocytes # (Manual) PT INR D-Dimer Heparin Anti-Xa Level POC ABG pH ABG pH POC ABG pCO2 POC ABG pO2 ABG pO2 ABG HCO3 ABG O2 Saturation ABG Base Excess ABG Hemoglobin Oxyhemoglobin Sodium Potassium Chloride Carbon Dioxide BUN Creatinine Glucose POC Glucose 153 H 159 H Lactic Acid Calcium Ionized Calcium Phosphorus Magnesium Iron TIBC Ferritin Total Bilirubin Direct Bilirubin AST ALT Alkaline Phosphatase Total Creatine Kinase CK-MB (CK-2) Troponin T C-Reactive Protein Serum Total Protein Total Protein Albumin Qjpfp-0-Mzkshdfeh Nvnlv-9-Wbovkirrr PEP Interpretation Triglycerides LDL Cholesterol Direct HDL Cholesterol Free T4 PTH Intact Urine WBC (Auto) Urine Creatinine Salicylates Acetaminophen Crossmatch 03/28/19 03/28/19 03/28/19 18:10 Unknown 23:59 WBC 24.8 H RBC 3.42 L Hgb 10.2 L D Hct 31.1 L D MCV MCH MCHC RDW 15.4 H Plt Count 54 L Lymph % (Auto) [place] % (Auto) Eos % (Auto) Lymph # [place] # Eos # Seg Neutrophils % Seg Neuts % (Manual) 91.0 H Lymphocytes % (Manual) 8.0 L Monocytes % (Manual) Nucleated RBC % Seg Neutrophils # Seg Neutrophils # Man 22.6 H Lymphocytes # (Manual) Monocytes # (Manual) PT INR D-Dimer Heparin Anti-Xa Level POC ABG pH ABG pH POC ABG pCO2 POC ABG pO2 ABG pO2 ABG HCO3 ABG O2 Saturation ABG Base Excess ABG Hemoglobin Oxyhemoglobin Sodium Potassium 5.7 H Chloride Carbon Dioxide BUN Creatinine Glucose POC Glucose 107 H Lactic Acid Calcium Ionized Calcium Phosphorus Magnesium Iron TIBC Ferritin Total Bilirubin Direct Bilirubin AST ALT Alkaline Phosphatase Total Creatine Kinase CK-MB (CK-2) Troponin T C-Reactive Protein Serum Total Protein Total Protein Albumin Dlcvc-4-Vcfpumxyj Dnisg-3-Ahhujljzf PEP Interpretation Triglycerides LDL Cholesterol Direct HDL Cholesterol Free T4 PTH Intact Urine WBC (Auto) Urine Creatinine Salicylates Acetaminophen Crossmatch 03/29/19 03/29/19 03/29/19 04:29 05:46 06:22 WBC RBC Hgb 8.6 L Hct 25.7 L MCV MCH MCHC RDW Plt Count 93 L Lymph % (Auto) [place] % (Auto) Eos % (Auto) Lymph # [place] # Eos # Seg Neutrophils % Seg Neuts % (Manual) Lymphocytes % (Manual) Monocytes % (Manual) Nucleated RBC % Seg Neutrophils # Seg Neutrophils # Man Lymphocytes # (Manual) Monocytes # (Manual) PT INR D-Dimer Heparin Anti-Xa Level POC ABG pH ABG pH POC ABG pCO2 32.2 L POC ABG pO2 ABG pO2 ABG HCO3 ABG O2 Saturation ABG Base Excess ABG Hemoglobin Oxyhemoglobin Sodium Potassium Chloride Carbon Dioxide BUN Creatinine Glucose POC Glucose 113 H Lactic Acid Calcium Ionized Calcium Phosphorus Magnesium Iron TIBC Ferritin Total Bilirubin Direct Bilirubin AST ALT Alkaline Phosphatase Total Creatine Kinase CK-MB (CK-2) Troponin T C-Reactive Protein Serum Total Protein Total Protein Albumin Hjjzf-8-Xyfdgkztb Orrtg-7-Qwmytolij PEP Interpretation Triglycerides LDL Cholesterol Direct HDL Cholesterol Free T4 PTH Intact Urine WBC (Auto) Urine Creatinine Salicylates Acetaminophen Crossmatch 03/29/19 03/29/19 03/29/19 06:22 06:22 06:22 WBC 23.2 H RBC 2.91 L Hgb 8.6 L Hct 25.8 L MCV MCH MCHC RDW Plt Count 91 L Lymph % (Auto) [place] % (Auto) Eos % (Auto) Lymph # [place] # Eos # Seg Neutrophils % Seg Neuts % (Manual) Lymphocytes % (Manual) Monocytes % (Manual) Nucleated RBC % Seg Neutrophils # Seg Neutrophils # Man Lymphocytes # (Manual) Monocytes # (Manual) PT INR D-Dimer Heparin Anti-Xa Level POC ABG pH ABG pH POC ABG pCO2 POC ABG pO2 ABG pO2 ABG HCO3 ABG O2 Saturation ABG Base Excess ABG Hemoglobin Oxyhemoglobin Sodium 133 L Potassium Chloride 93.8 L Carbon Dioxide 18 L BUN 109 H Creatinine 7.4 H Glucose 124 H POC Glucose Lactic Acid Calcium 4.6 L* Ionized Calcium Phosphorus Magnesium Iron TIBC Ferritin Total Bilirubin Direct Bilirubin AST ALT Alkaline Phosphatase Total Creatine Kinase 3401 H CK-MB (CK-2) Troponin T C-Reactive Protein Serum Total Protein Total Protein Albumin Etdlx-5-Zdqhjvdbp Luizq-4-Tzgvgbjih PEP Interpretation Triglycerides 309 H LDL Cholesterol Direct HDL Cholesterol Free T4 PTH Intact Urine WBC (Auto) Urine Creatinine Salicylates Acetaminophen Crossmatch 03/29/19 03/29/19 03/29/19 11:48 11:48 18:24 WBC RBC Hgb 7.8 L Hct 23.2 L MCV MCH MCHC RDW Plt Count Lymph % (Auto) [place] % (Auto) Eos % (Auto) Lymph # [place] # Eos # Seg Neutrophils % Seg Neuts % (Manual) Lymphocytes % (Manual) Monocytes % (Manual) Nucleated RBC % Seg Neutrophils # Seg Neutrophils # Man Lymphocytes # (Manual) Monocytes # (Manual) PT 15.3 H INR 1.24 H D-Dimer Heparin Anti-Xa Level POC ABG pH ABG pH POC ABG pCO2 POC ABG pO2 ABG pO2 ABG HCO3 ABG O2 Saturation ABG Base Excess ABG Hemoglobin Oxyhemoglobin Sodium Potassium Chloride Carbon Dioxide BUN Creatinine Glucose POC Glucose 122 H Lactic Acid Calcium Ionized Calcium Phosphorus Magnesium Iron TIBC Ferritin Total Bilirubin Direct Bilirubin AST ALT Alkaline Phosphatase Total Creatine Kinase CK-MB (CK-2) Troponin T C-Reactive Protein Serum Total Protein Total Protein Albumin Npdfq-0-Tqushelkb Mqdlj-3-Nhiyjpssf PEP Interpretation Triglycerides LDL Cholesterol Direct HDL Cholesterol Free T4 PTH Intact Urine WBC (Auto) Urine Creatinine Salicylates Acetaminophen Crossmatch 03/30/19 03/30/19 03/30/19 00:40 04:31 05:04 WBC RBC Hgb 7.6 L Hct 23.0 L MCV MCH MCHC RDW Plt Count Lymph % (Auto) [place] % (Auto) Eos % (Auto) Lymph # [place] # Eos # Seg Neutrophils % Seg Neuts % (Manual) Lymphocytes % (Manual) Monocytes % (Manual) Nucleated RBC % Seg Neutrophils # Seg Neutrophils # Man Lymphocytes # (Manual) Monocytes # (Manual) PT INR D-Dimer Heparin Anti-Xa Level POC ABG pH 7.346 L ABG pH POC ABG pCO2 POC ABG pO2 62 L ABG pO2 ABG HCO3 ABG O2 Saturation ABG Base Excess ABG Hemoglobin Oxyhemoglobin Sodium Potassium Chloride Carbon Dioxide BUN 79 H Creatinine 6.4 H Glucose POC Glucose Lactic Acid Calcium 6.1 L D Ionized Calcium Phosphorus Magnesium Iron TIBC Ferritin Total Bilirubin Direct Bilirubin AST ALT Alkaline Phosphatase Total Creatine Kinase CK-MB (CK-2) Troponin T C-Reactive Protein Serum Total Protein Total Protein Albumin Urphz-1-Inwmqsoil Zbgkc-4-Fqncvzzjp PEP Interpretation Triglycerides LDL Cholesterol Direct HDL Cholesterol Free T4 PTH Intact Urine WBC (Auto) Urine Creatinine Salicylates Acetaminophen Crossmatch 03/30/19 03/30/19 03/30/19 08:45 12:09 22:43 WBC 14.3 H RBC 2.33 L Hgb 7.0 L 7.4 L Hct 21.0 L 22.3 L MCV MCH MCHC RDW 15.6 H Plt Count 135 L Lymph % (Auto) [place] % (Auto) Eos % (Auto) Lymph # [place] # Eos # Seg Neutrophils % Seg Neuts % (Manual) Lymphocytes % (Manual) Monocytes % (Manual) Nucleated RBC % Seg Neutrophils # Seg Neutrophils # Man Lymphocytes # (Manual) Monocytes # (Manual) PT INR D-Dimer Heparin Anti-Xa Level POC ABG pH ABG pH POC ABG pCO2 POC ABG pO2 ABG pO2 ABG HCO3 ABG O2 Saturation ABG Base Excess ABG Hemoglobin Oxyhemoglobin Sodium Potassium Chloride Carbon Dioxide BUN Creatinine Glucose POC Glucose Lactic Acid Calcium Ionized Calcium 3.7 L Phosphorus Magnesium Iron TIBC Ferritin Total Bilirubin Direct Bilirubin AST ALT Alkaline Phosphatase Total Creatine Kinase CK-MB (CK-2) Troponin T C-Reactive Protein Serum Total Protein Total Protein Albumin Tftfx-7-Xvuwwmrqt Tlcez-6-Mvdcxkals PEP Interpretation Triglycerides LDL Cholesterol Direct HDL Cholesterol Free T4 PTH Intact Urine WBC (Auto) Urine Creatinine Salicylates Acetaminophen Crossmatch 03/30/19 03/30/19 03/31/19 23:38 Unknown 04:44 WBC 11.5 H RBC 2.40 L Hgb 7.3 L Hct 21.9 L MCV MCH MCHC RDW 15.4 H Plt Count Lymph % (Auto) 10.6 L [place] % (Auto) Eos % (Auto) Lymph # [place] # Eos # Seg Neutrophils % 81.7 H Seg Neuts % (Manual) Lymphocytes % (Manual) Monocytes % (Manual) Nucleated RBC % Seg Neutrophils # 9.4 H Seg Neutrophils # Man Lymphocytes # (Manual) Monocytes # (Manual) PT INR D-Dimer Heparin Anti-Xa Level POC ABG pH ABG pH POC ABG pCO2 POC ABG pO2 ABG pO2 ABG HCO3 ABG O2 Saturation ABG Base Excess ABG Hemoglobin Oxyhemoglobin Sodium Potassium Chloride Carbon Dioxide BUN Creatinine Glucose POC Glucose 155 H Lactic Acid Calcium Ionized Calcium Phosphorus Magnesium Iron TIBC Ferritin Total Bilirubin Direct Bilirubin 0.4 H AST 63 H ALT Alkaline Phosphatase Total Creatine Kinase CK-MB (CK-2) Troponin T C-Reactive Protein Serum Total Protein Total Protein 4.9 L Albumin 2.2 L Typcc-5-Rhbkokkac Aczth-8-Azcmaueux PEP Interpretation Triglycerides LDL Cholesterol Direct HDL Cholesterol Free T4 PTH Intact Urine WBC (Auto) Urine Creatinine Salicylates Acetaminophen Crossmatch 03/31/19 03/31/19 03/31/19 04:44 05:44 08:20 WBC RBC Hgb Hct MCV MCH MCHC RDW Plt Count Lymph % (Auto) [place] % (Auto) Eos % (Auto) Lymph # [place] # Eos # Seg Neutrophils % Seg Neuts % (Manual) Lymphocytes % (Manual) Monocytes % (Manual) Nucleated RBC % Seg Neutrophils # Seg Neutrophils # Man Lymphocytes # (Manual) Monocytes # (Manual) PT INR D-Dimer Heparin Anti-Xa Level POC ABG pH ABG pH POC ABG pCO2 53.5 H POC ABG pO2 62 L ABG pO2 ABG HCO3 ABG O2 Saturation ABG Base Excess ABG Hemoglobin Oxyhemoglobin Sodium 135 L Potassium Chloride 96.7 L Carbon Dioxide 19 L BUN 94 H Creatinine 7.8 H Glucose POC Glucose Lactic Acid Calcium 5.3 L* Ionized Calcium Phosphorus 8.20 H Magnesium Iron TIBC Ferritin Total Bilirubin Direct Bilirubin 0.4 H AST 60 H ALT Alkaline Phosphatase Total Creatine Kinase CK-MB (CK-2) Troponin T C-Reactive Protein Serum Total Protein Total Protein 4.8 L Albumin 2.1 L Hnqci-1-Earrehqdf Udpxn-5-Ejvrpaprp PEP Interpretation Triglycerides LDL Cholesterol Direct HDL Cholesterol Free T4 PTH Intact Urine WBC (Auto) Urine Creatinine Salicylates Acetaminophen Crossmatch 03/31/19 04/01/19 04/01/19 22:14 04:27 04:27 WBC RBC 2.60 L Hgb 8.0 L Hct 24.1 L MCV MCH MCHC RDW 15.7 H Plt Count Lymph % (Auto) 7.9 L [place] % (Auto) Eos % (Auto) Lymph # 0.7 L [place] # Eos # Seg Neutrophils % 83.6 H Seg Neuts % (Manual) Lymphocytes % (Manual) Monocytes % (Manual) Nucleated RBC % Seg Neutrophils # Seg Neutrophils # Man Lymphocytes # (Manual) Monocytes # (Manual) PT INR D-Dimer Heparin Anti-Xa Level POC ABG pH 7.286 L ABG pH POC ABG pCO2 54.7 H POC ABG pO2 179 H ABG pO2 ABG HCO3 ABG O2 Saturation ABG Base Excess ABG Hemoglobin Oxyhemoglobin Sodium Potassium Chloride Carbon Dioxide BUN 68 H Creatinine 6.6 H Glucose POC Glucose Lactic Acid Calcium 6.5 L D Ionized Calcium Phosphorus 7.30 H Magnesium Iron TIBC Ferritin Total Bilirubin Direct Bilirubin AST ALT Alkaline Phosphatase Total Creatine Kinase 1652 H CK-MB (CK-2) Troponin T C-Reactive Protein Serum Total Protein Total Protein Albumin Azipm-4-Ojtdunnsp Twftk-7-Rxigdhfxa PEP Interpretation Triglycerides LDL Cholesterol Direct HDL Cholesterol Free T4 PTH Intact Urine WBC (Auto) Urine Creatinine Salicylates Acetaminophen Crossmatch 04/01/19 04/01/19 04/01/19 05:14 05:37 18:37 WBC RBC Hgb Hct MCV MCH MCHC RDW Plt Count Lymph % (Auto) [place] % (Auto) Eos % (Auto) Lymph # [place] # Eos # Seg Neutrophils % Seg Neuts % (Manual) Lymphocytes % (Manual) Monocytes % (Manual) Nucleated RBC % Seg Neutrophils # Seg Neutrophils # Man Lymphocytes # (Manual) Monocytes # (Manual) PT INR D-Dimer Heparin Anti-Xa Level POC ABG pH 7.283 L ABG pH POC ABG pCO2 53.4 H POC ABG pO2 241 H ABG pO2 ABG HCO3 ABG O2 Saturation ABG Base Excess ABG Hemoglobin Oxyhemoglobin Sodium Potassium Chloride Carbon Dioxide BUN Creatinine Glucose POC Glucose 111 H 119 H Lactic Acid Calcium Ionized Calcium Phosphorus Magnesium Iron TIBC Ferritin Total Bilirubin Direct Bilirubin AST ALT Alkaline Phosphatase Total Creatine Kinase CK-MB (CK-2) Troponin T C-Reactive Protein Serum Total Protein Total Protein Albumin Jxiqu-5-Exiklidlc Xwzni-2-Dfgqaccgk PEP Interpretation Triglycerides LDL Cholesterol Direct HDL Cholesterol Free T4 PTH Intact Urine WBC (Auto) Urine Creatinine Salicylates Acetaminophen Crossmatch 04/01/19 04/02/19 04/02/19 21:28 04:40 05:03 WBC RBC 2.36 L Hgb 7.2 L Hct 21.9 L MCV MCH MCHC RDW 16.0 H Plt Count Lymph % (Auto) 10.8 L [place] % (Auto) Eos % (Auto) Lymph # 0.8 L [place] # Eos # Seg Neutrophils % 80.3 H Seg Neuts % (Manual) Lymphocytes % (Manual) Monocytes % (Manual) Nucleated RBC % Seg Neutrophils # Seg Neutrophils # Man Lymphocytes # (Manual) Monocytes # (Manual) PT INR D-Dimer Heparin Anti-Xa Level POC ABG pH 7.299 L 7.300 L ABG pH POC ABG pCO2 48.2 H 45.2 H POC ABG pO2 133 H 107 H ABG pO2 ABG HCO3 ABG O2 Saturation ABG Base Excess ABG Hemoglobin Oxyhemoglobin Sodium Potassium Chloride Carbon Dioxide BUN Creatinine Glucose POC Glucose Lactic Acid Calcium Ionized Calcium Phosphorus Magnesium Iron TIBC Ferritin Total Bilirubin Direct Bilirubin AST ALT Alkaline Phosphatase Total Creatine Kinase CK-MB (CK-2) Troponin T C-Reactive Protein Serum Total Protein Total Protein Albumin Vujio-9-Flciauljf Lswfm-6-Cvgwwmlod PEP Interpretation Triglycerides LDL Cholesterol Direct HDL Cholesterol Free T4 PTH Intact Urine WBC (Auto) Urine Creatinine Salicylates Acetaminophen Crossmatch 04/02/19 04/02/19 04/02/19 05:03 05:03 12:15 WBC RBC Hgb 7.4 L Hct 22.6 L MCV MCH MCHC RDW Plt Count Lymph % (Auto) [place] % (Auto) Eos % (Auto) Lymph # [place] # Eos # Seg Neutrophils % Seg Neuts % (Manual) Lymphocytes % (Manual) Monocytes % (Manual) Nucleated RBC % Seg Neutrophils # Seg Neutrophils # Man Lymphocytes # (Manual) Monocytes # (Manual) PT INR D-Dimer Heparin Anti-Xa Level POC ABG pH ABG pH POC ABG pCO2 POC ABG pO2 ABG pO2 ABG HCO3 ABG O2 Saturation ABG Base Excess ABG Hemoglobin Oxyhemoglobin Sodium 136 L Potassium Chloride 97.8 L Carbon Dioxide 18 L BUN 82 H Creatinine 8.2 H Glucose POC Glucose Lactic Acid Calcium 6.7 L Ionized Calcium Phosphorus 7.50 H Magnesium Iron 26 L TIBC 138 L Ferritin 607.0 H Total Bilirubin Direct Bilirubin AST ALT Alkaline Phosphatase Total Creatine Kinase CK-MB (CK-2) Troponin T C-Reactive Protein Serum Total Protein Total Protein Albumin Tnbnf-9-Uudjfsuox Exdph-6-Beutyiunz PEP Interpretation Triglycerides LDL Cholesterol Direct HDL Cholesterol Free T4 PTH Intact Urine WBC (Auto) Urine Creatinine Salicylates Acetaminophen Crossmatch 04/02/19 04/02/19 04/03/19 16:34 17:14 04:18 WBC RBC Hgb Hct MCV MCH MCHC RDW Plt Count Lymph % (Auto) [place] % (Auto) Eos % (Auto) Lymph # [place] # Eos # Seg Neutrophils % Seg Neuts % (Manual) Lymphocytes % (Manual) Monocytes % (Manual) Nucleated RBC % Seg Neutrophils # Seg Neutrophils # Man Lymphocytes # (Manual) Monocytes # (Manual) PT INR D-Dimer Heparin Anti-Xa Level POC ABG pH ABG pH POC ABG pCO2 POC ABG pO2 146 H ABG pO2 ABG HCO3 ABG O2 Saturation ABG Base Excess ABG Hemoglobin Oxyhemoglobin Sodium Potassium Chloride Carbon Dioxide BUN Creatinine Glucose POC Glucose 108 H Lactic Acid Calcium Ionized Calcium Phosphorus Magnesium Iron TIBC Ferritin Total Bilirubin Direct Bilirubin AST ALT Alkaline Phosphatase Total Creatine Kinase CK-MB (CK-2) Troponin T C-Reactive Protein Serum Total Protein Total Protein Albumin Kfaro-9-Nuocagbwn Protw-9-Mctxuqlzm PEP Interpretation Triglycerides LDL Cholesterol Direct HDL Cholesterol Free T4 PTH Intact Urine WBC (Auto) Urine Creatinine Salicylates Acetaminophen Crossmatch See Detail 04/03/19 04/03/19 04/03/19 04:25 08:30 18:24 WBC RBC 2.40 L Hgb 7.3 L Hct 21.9 L MCV MCH MCHC RDW Plt Count Lymph % (Auto) [place] % (Auto) 7.7 H Eos % (Auto) Lymph # 0.9 L [place] # Eos # Seg Neutrophils % 74.6 H Seg Neuts % (Manual) Lymphocytes % (Manual) Monocytes % (Manual) Nucleated RBC % Seg Neutrophils # Seg Neutrophils # Man Lymphocytes # (Manual) Monocytes # (Manual) PT INR D-Dimer Heparin Anti-Xa Level POC ABG pH ABG pH POC ABG pCO2 POC ABG pO2 ABG pO2 ABG HCO3 ABG O2 Saturation ABG Base Excess ABG Hemoglobin Oxyhemoglobin Sodium 136 L Potassium Chloride 97.0 L Carbon Dioxide BUN 58 H Creatinine 7.3 H Glucose POC Glucose 106 H Lactic Acid Calcium 7.5 L Ionized Calcium Phosphorus 5.80 H D Magnesium Iron TIBC Ferritin Total Bilirubin Direct Bilirubin AST ALT Alkaline Phosphatase Total Creatine Kinase CK-MB (CK-2) Troponin T C-Reactive Protein Serum Total Protein Total Protein Albumin Eaxgn-8-Uwiaelcpr Vomku-7-Iahsvhnyu PEP Interpretation Triglycerides LDL Cholesterol Direct HDL Cholesterol Free T4 PTH Intact Urine WBC (Auto) Urine Creatinine Salicylates Acetaminophen Crossmatch 04/03/19 04/04/19 04/04/19 23:43 04:47 04:47 WBC RBC 2.72 L Hgb 8.3 L Hct 24.7 L MCV MCH MCHC RDW 15.6 H Plt Count Lymph % (Auto) [place] % (Auto) 10.1 H Eos % (Auto) Lymph # 0.8 L [place] # Eos # Seg Neutrophils % 71.4 H Seg Neuts % (Manual) Lymphocytes % (Manual) Monocytes % (Manual) Nucleated RBC % Seg Neutrophils # Seg Neutrophils # Man Lymphocytes # (Manual) Monocytes # (Manual) PT INR D-Dimer Heparin Anti-Xa Level POC ABG pH ABG pH POC ABG pCO2 POC ABG pO2 ABG pO2 123.8 H ABG HCO3 ABG O2 Saturation ABG Base Excess -3.0 L ABG Hemoglobin 7.9 L Oxyhemoglobin Sodium 134 L Potassium Chloride 97.9 L Carbon Dioxide BUN 64 H Creatinine 8.1 H Glucose POC Glucose Lactic Acid Calcium 7.2 L Ionized Calcium Phosphorus Magnesium Iron TIBC Ferritin Total Bilirubin Direct Bilirubin AST ALT Alkaline Phosphatase Total Creatine Kinase CK-MB (CK-2) Troponin T C-Reactive Protein Serum Total Protein Total Protein Albumin Xtbjr-3-Ktrqepopq Yihjm-1-Tacbfmbfe PEP Interpretation Triglycerides LDL Cholesterol Direct HDL Cholesterol Free T4 PTH Intact Urine WBC (Auto) Urine Creatinine Salicylates Acetaminophen Crossmatch 04/04/19 04/04/19 04/04/19 06:07 13:40 18:18 WBC RBC Hgb Hct MCV MCH MCHC RDW Plt Count Lymph % (Auto) [place] % (Auto) Eos % (Auto) Lymph # [place] # Eos # Seg Neutrophils % Seg Neuts % (Manual) Lymphocytes % (Manual) Monocytes % (Manual) Nucleated RBC % Seg Neutrophils # Seg Neutrophils # Man Lymphocytes # (Manual) Monocytes # (Manual) PT INR D-Dimer Heparin Anti-Xa Level POC ABG pH ABG pH POC ABG pCO2 POC ABG pO2 ABG pO2 95.9 H ABG HCO3 ABG O2 Saturation ABG Base Excess -3.0 L ABG Hemoglobin 8.5 L Oxyhemoglobin Sodium Potassium Chloride Carbon Dioxide BUN Creatinine Glucose POC Glucose 107 H 107 H Lactic Acid Calcium Ionized Calcium Phosphorus Magnesium Iron TIBC Ferritin Total Bilirubin Direct Bilirubin AST ALT Alkaline Phosphatase Total Creatine Kinase CK-MB (CK-2) Troponin T C-Reactive Protein Serum Total Protein Total Protein Albumin Osggz-8-Szawptpzz Krxwv-1-Fimmwmtuh PEP Interpretation Triglycerides LDL Cholesterol Direct HDL Cholesterol Free T4 PTH Intact Urine WBC (Auto) Urine Creatinine Salicylates Acetaminophen Crossmatch 04/04/19 04/05/19 04/05/19 21:22 04:09 04:09 WBC RBC 2.76 L Hgb 8.4 L Hct 25.4 L MCV MCH MCHC RDW 15.8 H Plt Count 133 L Lymph % (Auto) [place] % (Auto) 9.6 H Eos % (Auto) Lymph # 0.7 L [place] # Eos # Seg Neutrophils % 72.6 H Seg Neuts % (Manual) Lymphocytes % (Manual) Monocytes % (Manual) Nucleated RBC % Seg Neutrophils # Seg Neutrophils # Man Lymphocytes # (Manual) Monocytes # (Manual) PT INR D-Dimer Heparin Anti-Xa Level POC ABG pH ABG pH POC ABG pCO2 47.2 H POC ABG pO2 137 H ABG pO2 ABG HCO3 ABG O2 Saturation ABG Base Excess ABG Hemoglobin Oxyhemoglobin Sodium 136 L Potassium Chloride Carbon Dioxide BUN 46 H Creatinine 6.7 H Glucose POC Glucose Lactic Acid Calcium 7.7 L Ionized Calcium Phosphorus Magnesium Iron TIBC Ferritin Total Bilirubin Direct Bilirubin AST ALT Alkaline Phosphatase Total Creatine Kinase CK-MB (CK-2) Troponin T C-Reactive Protein Serum Total Protein Total Protein Albumin Iqakj-4-Mzynavtzl Ixmog-1-Hdkxjihji PEP Interpretation Triglycerides LDL Cholesterol Direct HDL Cholesterol Free T4 PTH Intact Urine WBC (Auto) Urine Creatinine Salicylates Acetaminophen Crossmatch 04/05/19 04/05/19 04/05/19 05:28 06:14 16:50 WBC RBC Hgb Hct MCV MCH MCHC RDW Plt Count Lymph % (Auto) [place] % (Auto) Eos % (Auto) Lymph # [place] # Eos # Seg Neutrophils % Seg Neuts % (Manual) Lymphocytes % (Manual) Monocytes % (Manual) Nucleated RBC % Seg Neutrophils # Seg Neutrophils # Man Lymphocytes # (Manual) Monocytes # (Manual) PT INR D-Dimer Heparin Anti-Xa Level POC ABG pH ABG pH POC ABG pCO2 POC ABG pO2 67 L ABG pO2 ABG HCO3 ABG O2 Saturation ABG Base Excess ABG Hemoglobin Oxyhemoglobin Sodium Potassium Chloride Carbon Dioxide BUN Creatinine Glucose POC Glucose 108 H Lactic Acid Calcium Ionized Calcium Phosphorus Magnesium Iron TIBC Ferritin Total Bilirubin Direct Bilirubin AST ALT Alkaline Phosphatase Total Creatine Kinase CK-MB (CK-2) Troponin T C-Reactive Protein Serum Total Protein Total Protein Albumin Qwjxw-1-Qtpmdtcbu Aplzn-0-Eeqoseakg PEP Interpretation Triglycerides LDL Cholesterol Direct HDL Cholesterol Free T4 PTH Intact Urine WBC (Auto) 40.0 H Urine Creatinine Salicylates Acetaminophen Crossmatch 04/05/19 04/06/19 04/06/19 17:22 00:13 04:44 WBC RBC 2.48 L Hgb 7.5 L Hct 22.9 L MCV MCH MCHC RDW 16.0 H Plt Count 107 L Lymph % (Auto) [place] % (Auto) 10.7 H Eos % (Auto) Lymph # 1.0 L [place] # Eos # Seg Neutrophils % Seg Neuts % (Manual) Lymphocytes % (Manual) Monocytes % (Manual) Nucleated RBC % Seg Neutrophils # Seg Neutrophils # Man Lymphocytes # (Manual) Monocytes # (Manual) PT INR D-Dimer Heparin Anti-Xa Level POC ABG pH ABG pH POC ABG pCO2 POC ABG pO2 ABG pO2 ABG HCO3 ABG O2 Saturation ABG Base Excess ABG Hemoglobin Oxyhemoglobin Sodium Potassium Chloride Carbon Dioxide BUN Creatinine Glucose POC Glucose 118 H 138 H Lactic Acid Calcium Ionized Calcium Phosphorus Magnesium Iron TIBC Ferritin Total Bilirubin Direct Bilirubin AST ALT Alkaline Phosphatase Total Creatine Kinase CK-MB (CK-2) Troponin T C-Reactive Protein Serum Total Protein Total Protein Albumin Idkdw-1-Qwbppdeju Gkzds-6-Mtwtkshiz PEP Interpretation Triglycerides LDL Cholesterol Direct HDL Cholesterol Free T4 PTH Intact Urine WBC (Auto) Urine Creatinine Salicylates Acetaminophen Crossmatch 04/06/19 04/06/19 04/06/19 04:44 05:20 05:23 WBC RBC Hgb Hct MCV MCH MCHC RDW Plt Count Lymph % (Auto) [place] % (Auto) Eos % (Auto) Lymph # [place] # Eos # Seg Neutrophils % Seg Neuts % (Manual) Lymphocytes % (Manual) Monocytes % (Manual) Nucleated RBC % Seg Neutrophils # Seg Neutrophils # Man Lymphocytes # (Manual) Monocytes # (Manual) PT INR D-Dimer Heparin Anti-Xa Level POC ABG pH ABG pH POC ABG pCO2 POC ABG pO2 ABG pO2 104.0 H ABG HCO3 ABG O2 Saturation ABG Base Excess -2.1 L ABG Hemoglobin 7.3 L Oxyhemoglobin Sodium Potassium Chloride Carbon Dioxide BUN 64 H Creatinine 8.2 H Glucose 103 H POC Glucose 118 H Lactic Acid Calcium 7.3 L Ionized Calcium Phosphorus Magnesium Iron TIBC Ferritin Total Bilirubin Direct Bilirubin AST ALT Alkaline Phosphatase Total Creatine Kinase CK-MB (CK-2) Troponin T C-Reactive Protein Serum Total Protein Total Protein Albumin Iezgd-8-Ntynbxndv Utkte-2-Nqbyouicd PEP Interpretation Triglycerides LDL Cholesterol Direct HDL Cholesterol Free T4 PTH Intact Urine WBC (Auto) Urine Creatinine Salicylates Acetaminophen Crossmatch 04/06/19 04/07/19 04/07/19 12:02 05:40 05:40 WBC RBC 2.59 L Hgb 7.9 L Hct 23.8 L MCV MCH MCHC RDW 15.8 H Plt Count 89 L Lymph % (Auto) [place] % (Auto) 10.3 H Eos % (Auto) Lymph # 1.1 L [place] # Eos # Seg Neutrophils % Seg Neuts % (Manual) Lymphocytes % (Manual) Monocytes % (Manual) Nucleated RBC % Seg Neutrophils # Seg Neutrophils # Man Lymphocytes # (Manual) Monocytes # (Manual) PT INR D-Dimer Heparin Anti-Xa Level POC ABG pH ABG pH POC ABG pCO2 POC ABG pO2 ABG pO2 ABG HCO3 ABG O2 Saturation ABG Base Excess ABG Hemoglobin Oxyhemoglobin Sodium 136 L Potassium 3.5 L Chloride Carbon Dioxide BUN 46 H Creatinine 6.2 H Glucose POC Glucose 108 H Lactic Acid Calcium 7.9 L Ionized Calcium Phosphorus Magnesium Iron TIBC Ferritin Total Bilirubin Direct Bilirubin AST ALT Alkaline Phosphatase Total Creatine Kinase CK-MB (CK-2) Troponin T C-Reactive Protein Serum Total Protein Total Protein Albumin Opjag-0-Xujclcwkf Bnfod-1-Hposkzztn PEP Interpretation Triglycerides LDL Cholesterol Direct HDL Cholesterol Free T4 PTH Intact Urine WBC (Auto) Urine Creatinine Salicylates Acetaminophen Crossmatch 04/07/19 04/09/19 04/09/19 12:57 04:28 04:28 WBC RBC 2.85 L Hgb 8.7 L Hct 26.2 L MCV MCH MCHC RDW 15.6 H Plt Count Lymph % (Auto) [place] % (Auto) 10.4 H Eos % (Auto) Lymph # 1.0 L [place] # Eos # Seg Neutrophils % 73.3 H Seg Neuts % (Manual) Lymphocytes % (Manual) Monocytes % (Manual) Nucleated RBC % Seg Neutrophils # Seg Neutrophils # Man Lymphocytes # (Manual) Monocytes # (Manual) PT INR D-Dimer Heparin Anti-Xa Level POC ABG pH ABG pH POC ABG pCO2 POC ABG pO2 107 H ABG pO2 ABG HCO3 ABG O2 Saturation ABG Base Excess ABG Hemoglobin Oxyhemoglobin Sodium Potassium 3.5 L Chloride 97.8 L Carbon Dioxide BUN 62 H Creatinine 8.1 H Glucose POC Glucose Lactic Acid Calcium 8.2 L Ionized Calcium Phosphorus 5.10 H Magnesium Iron TIBC Ferritin Total Bilirubin Direct Bilirubin AST ALT Alkaline Phosphatase Total Creatine Kinase CK-MB (CK-2) Troponin T C-Reactive Protein Serum Total Protein Total Protein Albumin Kaddq-9-Qmbsqwrel Axwsk-8-Bjdkvsgfp PEP Interpretation Triglycerides LDL Cholesterol Direct HDL Cholesterol Free T4 PTH Intact Urine WBC (Auto) Urine Creatinine Salicylates Acetaminophen Crossmatch 04/10/19 04/11/19 04/11/19 18:15 00:25 04:16 WBC 11.5 H RBC 2.91 L Hgb 8.9 L Hct 27.6 L MCV 95 H MCH MCHC RDW 17.5 H Plt Count Lymph % (Auto) [place] % (Auto) Eos % (Auto) Lymph # [place] # Eos # Seg Neutrophils % Seg Neuts % (Manual) 71.0 H Lymphocytes % (Manual) Monocytes % (Manual) 8.0 H Nucleated RBC % Seg Neutrophils # Seg Neutrophils # Man 8.2 H Lymphocytes # (Manual) Monocytes # (Manual) 0.9 H PT INR D-Dimer Heparin Anti-Xa Level POC ABG pH ABG pH POC ABG pCO2 POC ABG pO2 ABG pO2 ABG HCO3 ABG O2 Saturation ABG Base Excess ABG Hemoglobin Oxyhemoglobin Sodium Potassium Chloride Carbon Dioxide BUN Creatinine Glucose POC Glucose 109 H 114 H Lactic Acid Calcium Ionized Calcium Phosphorus Magnesium Iron TIBC Ferritin Total Bilirubin Direct Bilirubin AST ALT Alkaline Phosphatase Total Creatine Kinase CK-MB (CK-2) Troponin T C-Reactive Protein Serum Total Protein Total Protein Albumin Nirvm-3-Ddxqhbbpk Vwqgo-1-Snzglremb PEP Interpretation Triglycerides LDL Cholesterol Direct HDL Cholesterol Free T4 PTH Intact Urine WBC (Auto) Urine Creatinine Salicylates Acetaminophen Crossmatch 04/11/19 04/11/19 04/11/19 06:47 09:21 12:15 WBC RBC Hgb Hct MCV MCH MCHC RDW Plt Count Lymph % (Auto) [place] % (Auto) Eos % (Auto) Lymph # [place] # Eos # Seg Neutrophils % Seg Neuts % (Manual) Lymphocytes % (Manual) Monocytes % (Manual) Nucleated RBC % Seg Neutrophils # Seg Neutrophils # Man Lymphocytes # (Manual) Monocytes # (Manual) PT INR D-Dimer Heparin Anti-Xa Level POC ABG pH ABG pH POC ABG pCO2 POC ABG pO2 ABG pO2 ABG HCO3 ABG O2 Saturation ABG Base Excess ABG Hemoglobin Oxyhemoglobin Sodium Potassium 3.5 L Chloride Carbon Dioxide BUN 45 H Creatinine 6.0 H Glucose 113 H POC Glucose 106 H 109 H Lactic Acid Calcium Ionized Calcium Phosphorus Magnesium Iron TIBC Ferritin Total Bilirubin Direct Bilirubin AST ALT Alkaline Phosphatase Total Creatine Kinase CK-MB (CK-2) Troponin T C-Reactive Protein Serum Total Protein Total Protein Albumin Lellw-4-Viekghodd Rnquy-0-Hcspmxalr PEP Interpretation Triglycerides LDL Cholesterol Direct HDL Cholesterol Free T4 PTH Intact Urine WBC (Auto) Urine Creatinine Salicylates Acetaminophen Crossmatch 04/11/19 04/12/19 04/12/19 18:42 12:13 23:52 WBC RBC Hgb Hct MCV MCH MCHC RDW Plt Count Lymph % (Auto) [place] % (Auto) Eos % (Auto) Lymph # [place] # Eos # Seg Neutrophils % Seg Neuts % (Manual) Lymphocytes % (Manual) Monocytes % (Manual) Nucleated RBC % Seg Neutrophils # Seg Neutrophils # Man Lymphocytes # (Manual) Monocytes # (Manual) PT INR D-Dimer Heparin Anti-Xa Level POC ABG pH ABG pH POC ABG pCO2 POC ABG pO2 ABG pO2 ABG HCO3 ABG O2 Saturation ABG Base Excess ABG Hemoglobin Oxyhemoglobin Sodium Potassium Chloride Carbon Dioxide BUN Creatinine Glucose POC Glucose 107 H 115 H 124 H Lactic Acid Calcium Ionized Calcium Phosphorus Magnesium Iron TIBC Ferritin Total Bilirubin Direct Bilirubin AST ALT Alkaline Phosphatase Total Creatine Kinase CK-MB (CK-2) Troponin T C-Reactive Protein Serum Total Protein Total Protein Albumin Yeeww-7-Grsqhgsvd Wnydz-8-Kxxaevggq PEP Interpretation Triglycerides LDL Cholesterol Direct HDL Cholesterol Free T4 PTH Intact Urine WBC (Auto) Urine Creatinine Salicylates Acetaminophen Crossmatch 04/13/19 04/13/19 04/13/19 05:00 05:00 05:47 WBC 11.7 H RBC 2.97 L Hgb 8.8 L Hct 27.3 L MCV MCH MCHC RDW 16.1 H Plt Count Lymph % (Auto) 9.5 L [place] % (Auto) 9.9 H Eos % (Auto) Lymph # 1.1 L [place] # 1.2 H Eos # Seg Neutrophils % 78.6 H Seg Neuts % (Manual) Lymphocytes % (Manual) Monocytes % (Manual) Nucleated RBC % Seg Neutrophils # 9.2 H Seg Neutrophils # Man Lymphocytes # (Manual) Monocytes # (Manual) PT INR D-Dimer Heparin Anti-Xa Level POC ABG pH ABG pH POC ABG pCO2 POC ABG pO2 ABG pO2 ABG HCO3 ABG O2 Saturation ABG Base Excess ABG Hemoglobin Oxyhemoglobin Sodium Potassium 3.5 L Chloride Carbon Dioxide BUN 42 H Creatinine 4.6 H Glucose 106 H POC Glucose 107 H Lactic Acid Calcium 10.6 H D Ionized Calcium Phosphorus 5.90 H Magnesium Iron TIBC Ferritin Total Bilirubin Direct Bilirubin AST ALT Alkaline Phosphatase Total Creatine Kinase CK-MB (CK-2) Troponin T C-Reactive Protein Serum Total Protein Total Protein 5.8 L Albumin 2.5 L Sruuh-7-Vjdgwfymk Pfgcw-7-Whegvyowc PEP Interpretation Triglycerides LDL Cholesterol Direct HDL Cholesterol Free T4 PTH Intact Urine WBC (Auto) Urine Creatinine Salicylates Acetaminophen Crossmatch 04/13/19 04/14/19 04/14/19 17:32 00:00 03:55 WBC RBC Hgb Hct MCV MCH MCHC RDW Plt Count Lymph % (Auto) [place] % (Auto) Eos % (Auto) Lymph # [place] # Eos # Seg Neutrophils % Seg Neuts % (Manual) Lymphocytes % (Manual) Monocytes % (Manual) Nucleated RBC % Seg Neutrophils # Seg Neutrophils # Man Lymphocytes # (Manual) Monocytes # (Manual) PT INR D-Dimer Heparin Anti-Xa Level POC ABG pH ABG pH POC ABG pCO2 POC ABG pO2 ABG pO2 ABG HCO3 ABG O2 Saturation ABG Base Excess ABG Hemoglobin Oxyhemoglobin Sodium Potassium 3.0 L Chloride Carbon Dioxide BUN 30 H Creatinine 3.1 H Glucose POC Glucose 112 H 120 H Lactic Acid Calcium 10.8 H Ionized Calcium Phosphorus Magnesium Iron TIBC Ferritin Total Bilirubin Direct Bilirubin AST ALT Alkaline Phosphatase Total Creatine Kinase CK-MB (CK-2) Troponin T C-Reactive Protein Serum Total Protein Total Protein Albumin Bgqfb-6-Yhhosoqpw Gnpzu-0-Olhsqzvjz PEP Interpretation Triglycerides LDL Cholesterol Direct HDL Cholesterol Free T4 PTH Intact Urine WBC (Auto) Urine Creatinine Salicylates Acetaminophen Crossmatch 04/14/19 04/14/19 04/15/19 11:56 23:28 05:11 WBC 13.0 H RBC 2.93 L Hgb 8.6 L Hct 26.5 L MCV MCH MCHC RDW 16.5 H Plt Count Lymph % (Auto) 12.2 L [place] % (Auto) 9.1 H Eos % (Auto) Lymph # [place] # 1.2 H Eos # Seg Neutrophils % 77.6 H Seg Neuts % (Manual) Lymphocytes % (Manual) Monocytes % (Manual) Nucleated RBC % Seg Neutrophils # 10.1 H Seg Neutrophils # Man Lymphocytes # (Manual) Monocytes # (Manual) PT INR D-Dimer Heparin Anti-Xa Level POC ABG pH ABG pH POC ABG pCO2 POC ABG pO2 ABG pO2 ABG HCO3 ABG O2 Saturation ABG Base Excess ABG Hemoglobin Oxyhemoglobin Sodium Potassium Chloride Carbon Dioxide BUN Creatinine Glucose POC Glucose 109 H 112 H Lactic Acid Calcium Ionized Calcium Phosphorus Magnesium Iron TIBC Ferritin Total Bilirubin Direct Bilirubin AST ALT Alkaline Phosphatase Total Creatine Kinase CK-MB (CK-2) Troponin T C-Reactive Protein Serum Total Protein Total Protein Albumin Hqdxz-3-Lvdsjpkjr Zyiph-4-Hdhieqqid PEP Interpretation Triglycerides LDL Cholesterol Direct HDL Cholesterol Free T4 PTH Intact Urine WBC (Auto) Urine Creatinine Salicylates Acetaminophen Crossmatch 04/15/19 04/15/19 04/15/19 05:11 05:31 18:03 WBC RBC Hgb Hct MCV MCH MCHC RDW Plt Count Lymph % (Auto) [place] % (Auto) Eos % (Auto) Lymph # [place] # Eos # Seg Neutrophils % Seg Neuts % (Manual) Lymphocytes % (Manual) Monocytes % (Manual) Nucleated RBC % Seg Neutrophils # Seg Neutrophils # Man Lymphocytes # (Manual) Monocytes # (Manual) PT INR D-Dimer Heparin Anti-Xa Level POC ABG pH ABG pH POC ABG pCO2 POC ABG pO2 ABG pO2 ABG HCO3 ABG O2 Saturation ABG Base Excess ABG Hemoglobin Oxyhemoglobin Sodium Potassium 3.2 L Chloride Carbon Dioxide BUN 44 H Creatinine 3.6 H Glucose 106 H POC Glucose 110 H 121 H Lactic Acid Calcium 12.0 H Ionized Calcium Phosphorus 5.00 H Magnesium Iron TIBC Ferritin Total Bilirubin Direct Bilirubin AST ALT Alkaline Phosphatase Total Creatine Kinase CK-MB (CK-2) Troponin T C-Reactive Protein Serum Total Protein Total Protein Albumin Ewrfh-5-Oonjcwqkp Aofhp-2-Wtujurqvp PEP Interpretation Triglycerides LDL Cholesterol Direct HDL Cholesterol Free T4 PTH Intact Urine WBC (Auto) Urine Creatinine Salicylates Acetaminophen Crossmatch 04/16/19 04/16/19 04/17/19 05:07 05:07 04:15 WBC 12.6 H RBC 3.12 L Hgb 9.0 L Hct 28.2 L MCV MCH MCHC RDW 16.6 H Plt Count Lymph % (Auto) 10.3 L [place] % (Auto) 9.8 H Eos % (Auto) Lymph # [place] # 1.2 H Eos # Seg Neutrophils % 78.2 H Seg Neuts % (Manual) Lymphocytes % (Manual) Monocytes % (Manual) Nucleated RBC % Seg Neutrophils # 9.9 H Seg Neutrophils # Man Lymphocytes # (Manual) Monocytes # (Manual) PT INR D-Dimer Heparin Anti-Xa Level POC ABG pH ABG pH POC ABG pCO2 POC ABG pO2 ABG pO2 ABG HCO3 ABG O2 Saturation ABG Base Excess ABG Hemoglobin Oxyhemoglobin Sodium 147 H 150 H Potassium 3.5 L 3.1 L Chloride Carbon Dioxide 32 H BUN 54 H 65 H Creatinine 3.8 H 4.0 H Glucose 102 H 107 H POC Glucose Lactic Acid Calcium 11.7 H 12.0 H Ionized Calcium Phosphorus 5.40 H Magnesium Iron TIBC Ferritin Total Bilirubin Direct Bilirubin AST ALT Alkaline Phosphatase Total Creatine Kinase CK-MB (CK-2) Troponin T C-Reactive Protein 7.10 H Serum Total Protein Total Protein Albumin Orxyt-7-Emtnqaiqj Ijtrh-8-Qymyzsqyl PEP Interpretation Triglycerides LDL Cholesterol Direct HDL Cholesterol Free T4 PTH Intact Urine WBC (Auto) Urine Creatinine Salicylates Acetaminophen Crossmatch 04/17/19 04/17/19 04/17/19 04:15 06:05 12:49 WBC 15.8 H RBC 3.32 L Hgb 9.5 L Hct 29.9 L MCV MCH MCHC RDW 16.9 H Plt Count Lymph % (Auto) 12.6 L [place] % (Auto) 11.1 H Eos % (Auto) Lymph # [place] # 1.7 H Eos # Seg Neutrophils % 74.7 H Seg Neuts % (Manual) Lymphocytes % (Manual) Monocytes % (Manual) Nucleated RBC % Seg Neutrophils # 11.8 H Seg Neutrophils # Man Lymphocytes # (Manual) Monocytes # (Manual) PT INR D-Dimer Heparin Anti-Xa Level POC ABG pH ABG pH POC ABG pCO2 POC ABG pO2 ABG pO2 ABG HCO3 ABG O2 Saturation ABG Base Excess ABG Hemoglobin Oxyhemoglobin Sodium Potassium Chloride Carbon Dioxide BUN Creatinine Glucose POC Glucose 111 H 108 H Lactic Acid Calcium Ionized Calcium Phosphorus Magnesium Iron TIBC Ferritin Total Bilirubin Direct Bilirubin AST ALT Alkaline Phosphatase Total Creatine Kinase CK-MB (CK-2) Troponin T C-Reactive Protein Serum Total Protein Total Protein Albumin Tfrae-3-Vtgyejuxu Atogx-5-Iyqpsiula PEP Interpretation Triglycerides LDL Cholesterol Direct HDL Cholesterol Free T4 PTH Intact Urine WBC (Auto) Urine Creatinine Salicylates Acetaminophen Crossmatch 04/18/19 04/18/19 04/18/19 00:23 04:41 04:41 WBC 19.4 H RBC 3.03 L Hgb 8.6 L Hct 27.5 L MCV MCH MCHC 31 L RDW 16.9 H Plt Count Lymph % (Auto) [place] % (Auto) Eos % (Auto) Lymph # [place] # Eos # Seg Neutrophils % Seg Neuts % (Manual) Lymphocytes % (Manual) Monocytes % (Manual) Nucleated RBC % Seg Neutrophils # Seg Neutrophils # Man Lymphocytes # (Manual) Monocytes # (Manual) PT INR D-Dimer Heparin Anti-Xa Level POC ABG pH ABG pH POC ABG pCO2 POC ABG pO2 ABG pO2 ABG HCO3 ABG O2 Saturation ABG Base Excess ABG Hemoglobin Oxyhemoglobin Sodium 152 H Potassium 3.0 L Chloride Carbon Dioxide BUN 80 H Creatinine 4.3 H Glucose 103 H POC Glucose 115 H Lactic Acid Calcium 11.4 H Ionized Calcium Phosphorus Magnesium Iron TIBC Ferritin Total Bilirubin Direct Bilirubin AST ALT Alkaline Phosphatase Total Creatine Kinase CK-MB (CK-2) Troponin T C-Reactive Protein Serum Total Protein Total Protein Albumin Ohmqf-9-Kqiublswt Znvyd-8-Utyincghf PEP Interpretation Triglycerides LDL Cholesterol Direct HDL Cholesterol Free T4 PTH Intact Urine WBC (Auto) Urine Creatinine Salicylates Acetaminophen Crossmatch 04/18/19 04/18/19 04/18/19 06:17 12:16 18:10 WBC RBC Hgb Hct MCV MCH MCHC RDW Plt Count Lymph % (Auto) [place] % (Auto) Eos % (Auto) Lymph # [place] # Eos # Seg Neutrophils % Seg Neuts % (Manual) Lymphocytes % (Manual) Monocytes % (Manual) Nucleated RBC % Seg Neutrophils # Seg Neutrophils # Man Lymphocytes # (Manual) Monocytes # (Manual) PT INR D-Dimer Heparin Anti-Xa Level POC ABG pH ABG pH POC ABG pCO2 POC ABG pO2 ABG pO2 ABG HCO3 ABG O2 Saturation ABG Base Excess ABG Hemoglobin Oxyhemoglobin Sodium Potassium Chloride Carbon Dioxide BUN Creatinine Glucose POC Glucose 124 H 119 H 111 H Lactic Acid Calcium Ionized Calcium Phosphorus Magnesium Iron TIBC Ferritin Total Bilirubin Direct Bilirubin AST ALT Alkaline Phosphatase Total Creatine Kinase CK-MB (CK-2) Troponin T C-Reactive Protein Serum Total Protein Total Protein Albumin Iqfbl-8-Lrbwnwwsn Xjejv-5-Agnexsjon PEP Interpretation Triglycerides LDL Cholesterol Direct HDL Cholesterol Free T4 PTH Intact Urine WBC (Auto) Urine Creatinine Salicylates Acetaminophen Crossmatch 04/19/19 04/19/19 04/20/19 03:49 05:27 09:09 WBC RBC Hgb Hct MCV MCH MCHC RDW Plt Count Lymph % (Auto) [place] % (Auto) Eos % (Auto) Lymph # [place] # Eos # Seg Neutrophils % Seg Neuts % (Manual) Lymphocytes % (Manual) Monocytes % (Manual) Nucleated RBC % Seg Neutrophils # Seg Neutrophils # Man Lymphocytes # (Manual) Monocytes # (Manual) PT INR D-Dimer Heparin Anti-Xa Level POC ABG pH ABG pH POC ABG pCO2 POC ABG pO2 ABG pO2 ABG HCO3 ABG O2 Saturation ABG Base Excess ABG Hemoglobin Oxyhemoglobin Sodium 147 H 150 H Potassium 3.3 L Chloride 108.9 H Carbon Dioxide BUN 45 H 70 H Creatinine 2.9 H 4.1 H Glucose 105 H POC Glucose 124 H Lactic Acid Calcium 10.6 H 11.6 H Ionized Calcium Phosphorus Magnesium Iron TIBC Ferritin Total Bilirubin Direct Bilirubin AST ALT Alkaline Phosphatase Total Creatine Kinase CK-MB (CK-2) Troponin T C-Reactive Protein Serum Total Protein Total Protein Albumin Obfaz-2-Haczydkxt Tjsqi-6-Ektewhokj PEP Interpretation Triglycerides LDL Cholesterol Direct HDL Cholesterol Free T4 PTH Intact Urine WBC (Auto) Urine Creatinine Salicylates Acetaminophen Crossmatch 04/20/19 04/20/19 04/21/19 12:29 18:45 01:34 WBC RBC Hgb Hct MCV MCH MCHC RDW Plt Count Lymph % (Auto) [place] % (Auto) Eos % (Auto) Lymph # [place] # Eos # Seg Neutrophils % Seg Neuts % (Manual) Lymphocytes % (Manual) Monocytes % (Manual) Nucleated RBC % Seg Neutrophils # Seg Neutrophils # Man Lymphocytes # (Manual) Monocytes # (Manual) PT INR D-Dimer Heparin Anti-Xa Level POC ABG pH ABG pH POC ABG pCO2 POC ABG pO2 ABG pO2 ABG HCO3 ABG O2 Saturation ABG Base Excess ABG Hemoglobin Oxyhemoglobin Sodium Potassium Chloride Carbon Dioxide BUN 40 H Creatinine 2.6 H Glucose 104 H POC Glucose 131 H 134 H Lactic Acid Calcium 11.0 H Ionized Calcium Phosphorus Magnesium Iron TIBC Ferritin Total Bilirubin Direct Bilirubin AST ALT Alkaline Phosphatase Total Creatine Kinase CK-MB (CK-2) Troponin T C-Reactive Protein Serum Total Protein Total Protein Albumin Ejxjk-2-Vatairmwe Qdejq-6-Yuahvwvby PEP Interpretation Triglycerides LDL Cholesterol Direct HDL Cholesterol Free T4 PTH Intact Urine WBC (Auto) Urine Creatinine Salicylates Acetaminophen Crossmatch 04/21/19 04/21/19 04/22/19 04:22 04:22 04:24 WBC 14.2 H 14.3 H RBC 3.02 L 3.57 L Hgb 8.7 L 10.1 L Hct 27.2 L 32.1 L MCV MCH MCHC RDW 16.7 H 17.2 H Plt Count Lymph % (Auto) [place] % (Auto) Eos % (Auto) Lymph # [place] # Eos # Seg Neutrophils % Seg Neuts % (Manual) Lymphocytes % (Manual) Monocytes % (Manual) Nucleated RBC % Seg Neutrophils # Seg Neutrophils # Man Lymphocytes # (Manual) Monocytes # (Manual) PT INR D-Dimer Heparin Anti-Xa Level POC ABG pH ABG pH POC ABG pCO2 POC ABG pO2 ABG pO2 ABG HCO3 ABG O2 Saturation ABG Base Excess ABG Hemoglobin Oxyhemoglobin Sodium Potassium Chloride Carbon Dioxide BUN Creatinine Glucose POC Glucose Lactic Acid Calcium Ionized Calcium Phosphorus Magnesium Iron TIBC Ferritin Total Bilirubin Direct Bilirubin AST ALT Alkaline Phosphatase Total Creatine Kinase CK-MB (CK-2) Troponin T C-Reactive Protein Serum Total Protein 5.7 L Total Protein Albumin 2.3 L Ocgje-0-Jzyjmcnnb 0.5 H Xmujl-4-Iemblgbkw 1.0 H PEP Interpretation see below H Triglycerides LDL Cholesterol Direct HDL Cholesterol Free T4 PTH Intact Urine WBC (Auto) Urine Creatinine Salicylates Acetaminophen Crossmatch 04/22/19 04/22/19 04/22/19 04:24 06:37 11:57 WBC RBC Hgb Hct MCV MCH MCHC RDW Plt Count Lymph % (Auto) [place] % (Auto) Eos % (Auto) Lymph # [place] # Eos # Seg Neutrophils % Seg Neuts % (Manual) Lymphocytes % (Manual) Monocytes % (Manual) Nucleated RBC % Seg Neutrophils # Seg Neutrophils # Man Lymphocytes # (Manual) Monocytes # (Manual) PT INR D-Dimer Heparin Anti-Xa Level POC ABG pH ABG pH POC ABG pCO2 POC ABG pO2 ABG pO2 ABG HCO3 ABG O2 Saturation ABG Base Excess ABG Hemoglobin Oxyhemoglobin Sodium Potassium Chloride Carbon Dioxide BUN 54 H Creatinine 3.5 H Glucose POC Glucose 113 H 110 H Lactic Acid Calcium 11.4 H Ionized Calcium Phosphorus Magnesium Iron TIBC Ferritin Total Bilirubin Direct Bilirubin AST ALT Alkaline Phosphatase Total Creatine Kinase CK-MB (CK-2) Troponin T C-Reactive Protein Serum Total Protein Total Protein Albumin Tgjtu-2-Bwtijeyco Bkouj-9-Tyifnttca PEP Interpretation Triglycerides LDL Cholesterol Direct HDL Cholesterol Free T4 PTH Intact Urine WBC (Auto) Urine Creatinine Salicylates Acetaminophen Crossmatch 04/22/19 04/23/19 04/23/19 18:33 04:06 04:06 WBC 16.1 H RBC 3.36 L Hgb 9.8 L Hct 30.8 L MCV MCH MCHC RDW 17.7 H Plt Count Lymph % (Auto) 9.9 L [place] % (Auto) Eos % (Auto) Lymph # [place] # Eos # Seg Neutrophils % 84.2 H Seg Neuts % (Manual) Lymphocytes % (Manual) Monocytes % (Manual) Nucleated RBC % Seg Neutrophils # 13.6 H Seg Neutrophils # Man Lymphocytes # (Manual) Monocytes # (Manual) PT INR D-Dimer Heparin Anti-Xa Level POC ABG pH ABG pH POC ABG pCO2 POC ABG pO2 ABG pO2 ABG HCO3 ABG O2 Saturation ABG Base Excess ABG Hemoglobin Oxyhemoglobin Sodium Potassium Chloride Carbon Dioxide BUN 59 H Creatinine 3.8 H Glucose POC Glucose 120 H Lactic Acid Calcium 12.3 H* Ionized Calcium Phosphorus 5.70 H Magnesium Iron TIBC Ferritin Total Bilirubin Direct Bilirubin AST ALT Alkaline Phosphatase Total Creatine Kinase CK-MB (CK-2) Troponin T C-Reactive Protein Serum Total Protein Total Protein Albumin 3.2 L Czrrz-4-Xdpyqtejc Trojh-8-Sionfyaik PEP Interpretation Triglycerides LDL Cholesterol Direct HDL Cholesterol Free T4 PTH Intact Urine WBC (Auto) Urine Creatinine Salicylates Acetaminophen Crossmatch 04/23/19 04/24/19 04/24/19 18:06 04:12 04:12 WBC 18.0 H RBC 3.46 L Hgb 9.8 L Hct 31.2 L MCV MCH MCHC 31 L RDW 17.5 H Plt Count Lymph % (Auto) 11.1 L [place] % (Auto) Eos % (Auto) Lymph # [place] # Eos # Seg Neutrophils % 81.9 H Seg Neuts % (Manual) Lymphocytes % (Manual) Monocytes % (Manual) Nucleated RBC % Seg Neutrophils # 14.7 H Seg Neutrophils # Man Lymphocytes # (Manual) Monocytes # (Manual) PT INR D-Dimer Heparin Anti-Xa Level POC ABG pH ABG pH POC ABG pCO2 POC ABG pO2 ABG pO2 ABG HCO3 ABG O2 Saturation ABG Base Excess ABG Hemoglobin Oxyhemoglobin Sodium Potassium Chloride Carbon Dioxide BUN 56 H Creatinine 3.6 H Glucose POC Glucose 124 H Lactic Acid Calcium 12.6 H* Ionized Calcium Phosphorus Magnesium Iron TIBC Ferritin Total Bilirubin Direct Bilirubin AST ALT Alkaline Phosphatase Total Creatine Kinase CK-MB (CK-2) Troponin T C-Reactive Protein Serum Total Protein Total Protein Albumin 3.2 L Zzovq-7-Lkrycdlkm Xgowb-0-Digfdgxmo PEP Interpretation Triglycerides LDL Cholesterol Direct HDL Cholesterol Free T4 PTH Intact Urine WBC (Auto) Urine Creatinine Salicylates Acetaminophen Crossmatch 04/24/19 04/24/19 04/25/19 06:21 11:47 05:58 WBC 18.0 H RBC 2.98 L Hgb 8.3 L Hct 26.5 L MCV MCH MCHC 31 L RDW 17.9 H Plt Count Lymph % (Auto) 10.1 L [place] % (Auto) Eos % (Auto) Lymph # [place] # 0.9 H Eos # Seg Neutrophils % 82.8 H Seg Neuts % (Manual) Lymphocytes % (Manual) Monocytes % (Manual) Nucleated RBC % Seg Neutrophils # 15.0 H Seg Neutrophils # Man Lymphocytes # (Manual) Monocytes # (Manual) PT INR D-Dimer Heparin Anti-Xa Level POC ABG pH ABG pH POC ABG pCO2 POC ABG pO2 ABG pO2 ABG HCO3 ABG O2 Saturation ABG Base Excess ABG Hemoglobin Oxyhemoglobin Sodium Potassium Chloride Carbon Dioxide BUN Creatinine Glucose POC Glucose 132 H 106 H Lactic Acid Calcium Ionized Calcium Phosphorus Magnesium Iron TIBC Ferritin Total Bilirubin Direct Bilirubin AST ALT Alkaline Phosphatase Total Creatine Kinase CK-MB (CK-2) Troponin T C-Reactive Protein Serum Total Protein Total Protein Albumin Urked-0-Bflqfgbri Dxjcb-6-Slvxzehbb PEP Interpretation Triglycerides LDL Cholesterol Direct HDL Cholesterol Free T4 PTH Intact Urine WBC (Auto) Urine Creatinine Salicylates Acetaminophen Crossmatch 04/25/19 04/26/19 04/26/19 05:58 05:57 06:08 WBC RBC Hgb Hct MCV MCH MCHC RDW Plt Count Lymph % (Auto) [place] % (Auto) Eos % (Auto) Lymph # [place] # Eos # Seg Neutrophils % Seg Neuts % (Manual) Lymphocytes % (Manual) Monocytes % (Manual) Nucleated RBC % Seg Neutrophils # Seg Neutrophils # Man Lymphocytes # (Manual) Monocytes # (Manual) PT INR D-Dimer Heparin Anti-Xa Level POC ABG pH ABG pH POC ABG pCO2 POC ABG pO2 ABG pO2 ABG HCO3 ABG O2 Saturation ABG Base Excess ABG Hemoglobin Oxyhemoglobin Sodium Potassium 3.2 L Chloride Carbon Dioxide BUN 52 H 48 H Creatinine 3.2 H 2.9 H Glucose 108 H 112 H POC Glucose 109 H Lactic Acid Calcium 11.4 H 12.5 H* Ionized Calcium Phosphorus 5.90 H Magnesium Iron TIBC Ferritin Total Bilirubin Direct Bilirubin AST ALT Alkaline Phosphatase Total Creatine Kinase CK-MB (CK-2) Troponin T C-Reactive Protein Serum Total Protein Total Protein Albumin 3.0 L Dmvos-5-Gqnnspmcd Oexcn-1-Psbbzfkil PEP Interpretation Triglycerides LDL Cholesterol Direct HDL Cholesterol Free T4 PTH Intact Urine WBC (Auto) Urine Creatinine Salicylates Acetaminophen Crossmatch 04/26/19 04/26/19 04/27/19 07:22 13:39 05:05 WBC 11.9 H RBC 3.01 L Hgb 8.6 L Hct 26.3 L MCV MCH MCHC RDW 17.6 H Plt Count Lymph % (Auto) 11.9 L [place] % (Auto) Eos % (Auto) Lymph # [place] # Eos # Seg Neutrophils % 78.3 H Seg Neuts % (Manual) Lymphocytes % (Manual) Monocytes % (Manual) Nucleated RBC % Seg Neutrophils # 9.4 H Seg Neutrophils # Man Lymphocytes # (Manual) Monocytes # (Manual) PT INR D-Dimer Heparin Anti-Xa Level POC ABG pH ABG pH POC ABG pCO2 POC ABG pO2 ABG pO2 ABG HCO3 ABG O2 Saturation ABG Base Excess ABG Hemoglobin Oxyhemoglobin Sodium Potassium Chloride Carbon Dioxide BUN 46 H Creatinine 2.8 H Glucose POC Glucose Lactic Acid Calcium > 13.0 H* 12.2 H* Ionized Calcium Phosphorus Magnesium Iron TIBC Ferritin Total Bilirubin Direct Bilirubin AST ALT Alkaline Phosphatase Total Creatine Kinase CK-MB (CK-2) Troponin T C-Reactive Protein Serum Total Protein Total Protein Albumin Dvruz-8-Joqppwqfi Nbkks-3-Aqfndbfza PEP Interpretation Triglycerides LDL Cholesterol Direct HDL Cholesterol Free T4 PTH Intact Urine WBC (Auto) Urine Creatinine Salicylates Acetaminophen Crossmatch 04/27/19 04/28/19 04/29/19 05:05 05:17 14:14 WBC RBC Hgb Hct MCV MCH MCHC RDW Plt Count Lymph % (Auto) [place] % (Auto) Eos % (Auto) Lymph # [place] # Eos # Seg Neutrophils % Seg Neuts % (Manual) Lymphocytes % (Manual) Monocytes % (Manual) Nucleated RBC % Seg Neutrophils # Seg Neutrophils # Man Lymphocytes # (Manual) Monocytes # (Manual) PT INR D-Dimer Heparin Anti-Xa Level POC ABG pH ABG pH POC ABG pCO2 POC ABG pO2 ABG pO2 ABG HCO3 ABG O2 Saturation ABG Base Excess ABG Hemoglobin Oxyhemoglobin Sodium 136 L Potassium 3.2 L 3.4 L Chloride Carbon Dioxide BUN 40 H 34 H 33 H Creatinine 2.5 H 2.0 H 1.9 H Glucose 113 H 107 H POC Glucose Lactic Acid Calcium 12.3 H* 12.1 H* 11.5 H Ionized Calcium Phosphorus Magnesium Iron TIBC Ferritin Total Bilirubin Direct Bilirubin AST ALT Alkaline Phosphatase Total Creatine Kinase CK-MB (CK-2) Troponin T C-Reactive Protein Serum Total Protein Total Protein 6.2 L Albumin 2.8 L Gavem-0-Hnetngogf Mpboh-0-Gbqantryi PEP Interpretation Triglycerides LDL Cholesterol Direct HDL Cholesterol Free T4 PTH Intact Urine WBC (Auto) Urine Creatinine Salicylates Acetaminophen Crossmatch 04/29/19 04/29/19 04/30/19 14:14 14:14 06:47 WBC RBC Hgb Hct MCV MCH MCHC RDW Plt Count Lymph % (Auto) [place] % (Auto) Eos % (Auto) Lymph # [place] # Eos # Seg Neutrophils % Seg Neuts % (Manual) Lymphocytes % (Manual) Monocytes % (Manual) Nucleated RBC % Seg Neutrophils # Seg Neutrophils # Man Lymphocytes # (Manual) Monocytes # (Manual) PT INR D-Dimer Heparin Anti-Xa Level POC ABG pH ABG pH POC ABG pCO2 POC ABG pO2 ABG pO2 ABG HCO3 ABG O2 Saturation ABG Base Excess ABG Hemoglobin Oxyhemoglobin Sodium Potassium 3.2 L Chloride Carbon Dioxide 21 L BUN 26 H Creatinine 1.8 H Glucose POC Glucose Lactic Acid Calcium 10.8 H Ionized Calcium 7.2 H* Phosphorus Magnesium Iron TIBC Ferritin Total Bilirubin Direct Bilirubin AST ALT Alkaline Phosphatase Total Creatine Kinase CK-MB (CK-2) Troponin T C-Reactive Protein Serum Total Protein Total Protein Albumin Gckar-9-Kkpahamlr Fynik-4-Vrvmhxbdx PEP Interpretation Triglycerides LDL Cholesterol Direct HDL Cholesterol Free T4 PTH Intact 8.83 L Urine WBC (Auto) Urine Creatinine Salicylates Acetaminophen Crossmatch 04/30/19 05/01/19 05/01/19 12:17 06:52 06:52 WBC 15.4 H RBC 3.01 L Hgb 8.4 L Hct 26.2 L MCV MCH MCHC RDW 17.0 H Plt Count Lymph % (Auto) 8.4 L [place] % (Auto) 8.9 H Eos % (Auto) Lymph # [place] # 1.4 H Eos # 0.5 H Seg Neutrophils % 78.7 H Seg Neuts % (Manual) Lymphocytes % (Manual) Monocytes % (Manual) Nucleated RBC % Seg Neutrophils # 12.1 H Seg Neutrophils # Man Lymphocytes # (Manual) Monocytes # (Manual) PT INR D-Dimer Heparin Anti-Xa Level POC ABG pH ABG pH POC ABG pCO2 POC ABG pO2 ABG pO2 ABG HCO3 ABG O2 Saturation ABG Base Excess ABG Hemoglobin Oxyhemoglobin Sodium Potassium 3.0 L Chloride Carbon Dioxide BUN 22 H Creatinine Glucose POC Glucose 106 H Lactic Acid Calcium 11.2 H Ionized Calcium Phosphorus Magnesium Iron TIBC Ferritin Total Bilirubin Direct Bilirubin AST ALT Alkaline Phosphatase Total Creatine Kinase CK-MB (CK-2) Troponin T C-Reactive Protein Serum Total Protein Total Protein Albumin 3.0 L Zcvev-3-Lqadbpvfl Reocw-2-Htutggqct PEP Interpretation Triglycerides LDL Cholesterol Direct HDL Cholesterol Free T4 PTH Intact Urine WBC (Auto) Urine Creatinine Salicylates Acetaminophen Crossmatch 05/01/19 05/01/19 05/02/19 06:52 18:40 05:32 WBC RBC Hgb Hct MCV MCH MCHC RDW Plt Count Lymph % (Auto) [place] % (Auto) Eos % (Auto) Lymph # [place] # Eos # Seg Neutrophils % Seg Neuts % (Manual) Lymphocytes % (Manual) Monocytes % (Manual) Nucleated RBC % Seg Neutrophils # Seg Neutrophils # Man Lymphocytes # (Manual) Monocytes # (Manual) PT INR D-Dimer Heparin Anti-Xa Level POC ABG pH ABG pH POC ABG pCO2 POC ABG pO2 ABG pO2 ABG HCO3 ABG O2 Saturation ABG Base Excess ABG Hemoglobin Oxyhemoglobin Sodium Potassium Chloride Carbon Dioxide BUN Creatinine Glucose POC Glucose 169 H 109 H Lactic Acid Calcium Ionized Calcium Phosphorus Magnesium Iron TIBC Ferritin Total Bilirubin Direct Bilirubin AST ALT Alkaline Phosphatase Total Creatine Kinase CK-MB (CK-2) Troponin T C-Reactive Protein Serum Total Protein 5.7 L Total Protein Albumin 2.5 L Tmakw-1-Xrwvgdacq 0.5 H Gjsfv-1-Xrjhjcpmb PEP Interpretation see below H Triglycerides LDL Cholesterol Direct HDL Cholesterol Free T4 PTH Intact Urine WBC (Auto) Urine Creatinine Salicylates Acetaminophen Crossmatch 05/02/19 05/02/19 05/02/19 05:57 05:57 11:43 WBC 14.2 H RBC 2.96 L Hgb 8.3 L Hct 26.0 L MCV MCH MCHC RDW 16.8 H Plt Count Lymph % (Auto) [place] % (Auto) Eos % (Auto) Lymph # [place] # Eos # Seg Neutrophils % Seg Neuts % (Manual) Lymphocytes % (Manual) Monocytes % (Manual) Nucleated RBC % Seg Neutrophils # Seg Neutrophils # Man Lymphocytes # (Manual) Monocytes # (Manual) PT INR D-Dimer Heparin Anti-Xa Level POC ABG pH ABG pH POC ABG pCO2 POC ABG pO2 ABG pO2 ABG HCO3 ABG O2 Saturation ABG Base Excess ABG Hemoglobin Oxyhemoglobin Sodium 136 L Potassium 3.5 L Chloride Carbon Dioxide BUN 21 H Creatinine Glucose POC Glucose 108 H Lactic Acid Calcium 11.1 H Ionized Calcium Phosphorus Magnesium Iron TIBC Ferritin Total Bilirubin Direct Bilirubin AST ALT Alkaline Phosphatase Total Creatine Kinase CK-MB (CK-2) Troponin T C-Reactive Protein Serum Total Protein Total Protein Albumin Bkgbf-9-Ykkhvbbka Idrrj-0-Kmacbusdf PEP Interpretation Triglycerides LDL Cholesterol Direct HDL Cholesterol Free T4 PTH Intact Urine WBC (Auto) Urine Creatinine Salicylates Acetaminophen Crossmatch 05/03/19 05/03/19 05/04/19 05:37 05:37 06:49 WBC 12.7 H 11.1 H RBC 3.01 L 3.07 L Hgb 8.3 L 8.6 L Hct 26.1 L 26.6 L MCV MCH MCHC RDW 16.9 H 17.3 H Plt Count Lymph % (Auto) [place] % (Auto) 9.0 H Eos % (Auto) 4.9 H Lymph # [place] # 1.0 H Eos # 0.5 H Seg Neutrophils % Seg Neuts % (Manual) Lymphocytes % (Manual) Monocytes % (Manual) Nucleated RBC % Seg Neutrophils # 7.8 H Seg Neutrophils # Man Lymphocytes # (Manual) Monocytes # (Manual) PT INR D-Dimer Heparin Anti-Xa Level POC ABG pH ABG pH POC ABG pCO2 POC ABG pO2 ABG pO2 ABG HCO3 ABG O2 Saturation ABG Base Excess ABG Hemoglobin Oxyhemoglobin Sodium 135 L Potassium 3.3 L Chloride Carbon Dioxide BUN Creatinine Glucose POC Glucose Lactic Acid Calcium 10.9 H Ionized Calcium Phosphorus Magnesium 1.50 L Iron TIBC Ferritin Total Bilirubin Direct Bilirubin AST ALT Alkaline Phosphatase Total Creatine Kinase CK-MB (CK-2) Troponin T C-Reactive Protein Serum Total Protein Total Protein Albumin Uvzlp-5-Jwjedower Akmcf-6-Whyjupzzb PEP Interpretation Triglycerides LDL Cholesterol Direct HDL Cholesterol Free T4 PTH Intact Urine WBC (Auto) Urine Creatinine Salicylates Acetaminophen Crossmatch 05/04/19 05/04/19 05/04/19 06:49 06:49 11:58 WBC RBC Hgb Hct MCV MCH MCHC RDW Plt Count Lymph % (Auto) [place] % (Auto) Eos % (Auto) Lymph # [place] # Eos # Seg Neutrophils % Seg Neuts % (Manual) Lymphocytes % (Manual) Monocytes % (Manual) Nucleated RBC % Seg Neutrophils # Seg Neutrophils # Man Lymphocytes # (Manual) Monocytes # (Manual) PT 15.5 H INR 1.24 H D-Dimer Heparin Anti-Xa Level POC ABG pH ABG pH POC ABG pCO2 POC ABG pO2 ABG pO2 ABG HCO3 ABG O2 Saturation ABG Base Excess ABG Hemoglobin Oxyhemoglobin Sodium Potassium Chloride Carbon Dioxide 19 L BUN Creatinine Glucose POC Glucose 111 H Lactic Acid Calcium 10.7 H Ionized Calcium Phosphorus Magnesium Iron TIBC Ferritin Total Bilirubin Direct Bilirubin AST ALT Alkaline Phosphatase Total Creatine Kinase CK-MB (CK-2) Troponin T C-Reactive Protein Serum Total Protein Total Protein Albumin Wdonp-8-Izvaalrko Nkjuu-7-Lyelgetki PEP Interpretation Triglycerides LDL Cholesterol Direct HDL Cholesterol Free T4 PTH Intact Urine WBC (Auto) Urine Creatinine Salicylates Acetaminophen Crossmatch 05/05/19 05/05/19 05/07/19 06:14 06:14 05:55 WBC 11.5 H 12.0 H RBC 3.08 L 3.33 L Hgb 8.5 L 9.2 L Hct 26.5 L 28.5 L MCV MCH MCHC RDW 17.1 H 17.6 H Plt Count Lymph % (Auto) [place] % (Auto) Eos % (Auto) 8.2 H Lymph # [place] # Eos # 1.0 H Seg Neutrophils % Seg Neuts % (Manual) Lymphocytes % (Manual) Monocytes % (Manual) Nucleated RBC % Seg Neutrophils # 8.2 H Seg Neutrophils # Man Lymphocytes # (Manual) Monocytes # (Manual) PT INR D-Dimer Heparin Anti-Xa Level POC ABG pH ABG pH POC ABG pCO2 POC ABG pO2 ABG pO2 ABG HCO3 ABG O2 Saturation ABG Base Excess ABG Hemoglobin Oxyhemoglobin Sodium 136 L Potassium Chloride Carbon Dioxide 21 L BUN Creatinine Glucose POC Glucose Lactic Acid Calcium 10.3 H Ionized Calcium Phosphorus Magnesium Iron TIBC Ferritin Total Bilirubin Direct Bilirubin AST ALT Alkaline Phosphatase Total Creatine Kinase CK-MB (CK-2) Troponin T C-Reactive Protein Serum Total Protein Total Protein Albumin Hakee-2-Wflhhbonr Mgebh-5-Bizuhxqgd PEP Interpretation Triglycerides LDL Cholesterol Direct HDL Cholesterol Free T4 PTH Intact Urine WBC (Auto) Urine Creatinine Salicylates Acetaminophen Crossmatch 05/07/19 05/08/19 05/08/19 05:55 07:27 07:27 WBC 12.5 H RBC 3.50 L Hgb 9.4 L Hct 30.4 L MCV MCH 27 L MCHC 31 L RDW 17.2 H Plt Count Lymph % (Auto) [place] % (Auto) Eos % (Auto) 10.3 H Lymph # [place] # Eos # 1.3 H Seg Neutrophils % Seg Neuts % (Manual) Lymphocytes % (Manual) Monocytes % (Manual) Nucleated RBC % Seg Neutrophils # 8.7 H Seg Neutrophils # Man Lymphocytes # (Manual) Monocytes # (Manual) PT INR D-Dimer Heparin Anti-Xa Level POC ABG pH ABG pH POC ABG pCO2 POC ABG pO2 ABG pO2 ABG HCO3 ABG O2 Saturation ABG Base Excess ABG Hemoglobin Oxyhemoglobin Sodium Potassium 3.5 L Chloride Carbon Dioxide 20 L 20 L BUN Creatinine Glucose POC Glucose Lactic Acid Calcium 10.7 H 10.7 H Ionized Calcium Phosphorus Magnesium Iron TIBC Ferritin Total Bilirubin Direct Bilirubin AST ALT Alkaline Phosphatase Total Creatine Kinase CK-MB (CK-2) Troponin T C-Reactive Protein Serum Total Protein Total Protein Albumin 3.2 L 3.4 L Stgqe-4-Adupslnay Zmnqg-8-Llhiyovyh PEP Interpretation Triglycerides LDL Cholesterol Direct HDL Cholesterol Free T4 PTH Intact Urine WBC (Auto) Urine Creatinine Salicylates Acetaminophen Crossmatch 05/09/19 05/09/19 05/10/19 05:41 05:41 06:42 WBC 11.7 H RBC 3.27 L Hgb 9.2 L Hct 27.9 L MCV MCH MCHC RDW 17.8 H Plt Count Lymph % (Auto) [place] % (Auto) Eos % (Auto) 14.3 H Lymph # [place] # Eos # 1.7 H Seg Neutrophils % Seg Neuts % (Manual) Lymphocytes % (Manual) Monocytes % (Manual) Nucleated RBC % Seg Neutrophils # Seg Neutrophils # Man Lymphocytes # (Manual) Monocytes # (Manual) PT INR 1.17 H D-Dimer Heparin Anti-Xa Level POC ABG pH ABG pH POC ABG pCO2 POC ABG pO2 ABG pO2 ABG HCO3 ABG O2 Saturation ABG Base Excess ABG Hemoglobin Oxyhemoglobin Sodium 136 L Potassium Chloride Carbon Dioxide 21 L BUN Creatinine Glucose POC Glucose Lactic Acid Calcium 10.6 H Ionized Calcium Phosphorus Magnesium Iron TIBC Ferritin Total Bilirubin Direct Bilirubin AST ALT Alkaline Phosphatase Total Creatine Kinase CK-MB (CK-2) Troponin T C-Reactive Protein Serum Total Protein Total Protein Albumin 3.3 L Ucazk-4-Btapinliu Knfxq-0-Gqgogmund PEP Interpretation Triglycerides LDL Cholesterol Direct HDL Cholesterol Free T4 PTH Intact Urine WBC (Auto) Urine Creatinine Salicylates Acetaminophen Crossmatch 05/10/19 05/11/19 06:42 04:40 WBC RBC Hgb Hct MCV MCH MCHC RDW Plt Count Lymph % (Auto) [place] % (Auto) Eos % (Auto) Lymph # [place] # Eos # Seg Neutrophils % Seg Neuts % (Manual) Lymphocytes % (Manual) Monocytes % (Manual) Nucleated RBC % Seg Neutrophils # Seg Neutrophils # Man Lymphocytes # (Manual) Monocytes # (Manual) PT INR D-Dimer Heparin Anti-Xa Level POC ABG pH ABG pH POC ABG pCO2 POC ABG pO2 ABG pO2 ABG HCO3 ABG O2 Saturation ABG Base Excess ABG Hemoglobin Oxyhemoglobin Sodium Potassium Chloride Carbon Dioxide 21 L 20 L BUN Creatinine Glucose POC Glucose Lactic Acid Calcium Ionized Calcium Phosphorus Magnesium Iron TIBC Ferritin Total Bilirubin Direct Bilirubin AST ALT Alkaline Phosphatase Total Creatine Kinase CK-MB (CK-2) Troponin T C-Reactive Protein Serum Total Protein Total Protein Albumin Txacr-9-Gpquvjxwj Odofx-4-Ajfagqwtm PEP Interpretation Triglycerides LDL Cholesterol Direct HDL Cholesterol Free T4 PTH Intact Urine WBC (Auto) Urine Creatinine Salicylates Acetaminophen Crossmatch Assessment and Plan 43 YEAR OLD MALE WITH HISTORY OF SEPSIS AND MULTI ORGAN FAILURE,HYPOXIC RESPIRATORY FAILURE ,DVT WHO HAD IVC FILTER TODAY. PATIENT DEVELOPED TINGLING AND NUMBNESS IN THE FEET FEW DAYS AGO FOR WHICH HE WANTED NEUROLOGY EVALUATION. DVT PROBLEM RUNS IN HIS FAMILY,HIS GRAND FATHER AND HIS FATHER BOTH THEM HAD DVT.PATIENT HAD KIDNEY FAILURE WITH ELEVATED BUN AND CREATININE, WHICH HAS NOW COME BACK TO NORMAL ,ALSO HAS NORMAL MCV SUGGESTIVE OF NORMAL B12 LEVEL. PHYSICAL EXAMINATION GENEAL IN NO ACUTE DISTRESS, HEART-NORMAL RATE AND RHYTHM, CAROTIDS-BOTH PALPABLE CRANIAL NERVES -ALL WITH IN NORMAL LIMIT MOTOR : NO ASYMMETRY OF STRENGTH BETWEEN RTA ND LEFT LOWER OR UPPER EXTREMITIES. EXCEPT FOR BOTH FEET WEAK,BOTH DORSI FLEXION AND PLANTAR FLEXION. COORDINATION-NORMAL REFLEXES- BOTH ANKLE REFLEXES ARE SIGNIFICANTLY DECREASED SENSORY- DECREASED SENSATION TO PIN PRICK AND LIGHT TOUCH IN BOTH FEET UPTO ANKLES MILD DECREASED IN VIBRATORY SENSATION IN BOTH BIG TOE,NORMAL IN THE ANKLES. MILD IMPAIRMENT OF PROPRIOCEPTIVE SENSATION IN BOTH BIG TOES. IMPRESSION. 1. 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 RECOMMEND. 1.REVALUATION AGAIN AFTER FEW DAYS WITH WHEN CIRCULATION IMPROVES AND IF AT THAT POINT HE IS FOUND TO HAVE PERIPHERAL NEUROPATHY ON NEURO EXAMINATION HE WILL NEED EMG/NCV TO FIND OUT AXONAL VS DEMYELINATING AND WORK UP CAN BE INITIATED AT THAT POINT.
[2019-05-12] MEDS: GABAPENTIN 100 MG CAP PO SCH ×3 (05:48→22:59)
[2019-05-12] MEDS: METOPROLOL SUCCINATE XL 50 MG TAB PO SCH (11:09)
[2019-05-12] MEDS: PANTOPRAZOLE 40 MG TAB PO SCH ×2 (11:10→22:59)
[2019-05-12] MEDS: HYDROcodone/ACETAMINOPHEN 5-325 MG TAB PO PRN ×2 (11:13→18:07)
--- NOTE | 2019-05-12 11:35 | Progress Note ---
Assessment and Plan Assessment and plan: Peripheral neuropathy. Neurology following. Patient will need EMG/MCV to rule out axonal versus demyelinating disease. Workup can be done as an outpatient. Bilateral lower extremity DVTs. Patient will be scheduled for placement of IVC filter. 3 months after discharge, the patient will need to be scheduled for IVC filter removal with repeat ultrasound at that time to evaluate the patient's bilateral lower extremity DVTs. - Acute hypoxic respiratory failure. Was intubated, but now extubated. Now on Room air. Continue BiPAP as clinically indicated. - Atrial fibrillation. Resolved. Continue Metoprolol. Cardiology following. No recurrence of AFib or VT noted for several weeks since resolution of multiple metabolic derangements and thus no plans for initiation of systemic AC or AICD implantation at this time. - Abnormal Lexiscan stress with ejection fraction of 45% S/p LHC this AM which showed normal coronaries, normal EF. - Acute blood loss anemia. Patient with GI bleed secondary to peptic ulcer disease. EGD completed per GI. Continue PRBCs as needed. - GI bleed/peptic ulcer disease. Continue PPI. Transfuse PRBCs as needed. - Sepsis/septic shock. Resolved. Continue to monitor off antibiotics - Ischemic hepatitis/shock liver. Resolved. Viral hepatitis panel negative. - Acute kidney injury. Resolved. Patient's last hemodialysis 04/20/19. Continue to monitor BMP. Avoid nephrotoxic agents. - Toxic metabolic encephalopathy. Resolved. - Swelling both upper ext L>R Doppler US : no DVT LUE - Hypokalemia. Replete potassium as needed. - Thrombocytopenia. Etiology likely secondary to sepsis. Resolved. - Rhabdomyolysis. CK normalized. Full code status Disposition. Awaiting for arrangements for SNF in [place] History Interval history: Patient complaining of bilateral lower extremity numbness. Hospitalist Physical - Constitutional Vitals: Temp Pulse Resp BP Pulse Ox 98.0 F 89 16 127/78 98 05/12/19 10:53 05/12/19 11:09 05/12/19 10:53 05/12/19 11:09 05/12/19 10:53 General appearance: Present: no acute distress - EENT Eyes: Present: PERRL, EOM intact ENT: hearing intact, clear oral mucosa, dentition normal - Neck Neck: Present: supple, normal ROM - Respiratory Respiratory effort: normal Respiratory: bilateral: CTA - Cardiovascular Rhythm: regular Heart Sounds: Present: S1 & S2. Absent: gallop, rub - Extremities Extremities: no ischemia, No edema, Full ROM - Abdominal General gastrointestinal: soft, non-tender, non-distended, normal bowel sounds - Integumentary Integumentary: Present: clear, warm, dry - Neurologic Neurologic: CNII-XII intact, moves all extremities Results - Labs CBC & Chem 7: 05/09/19 05:41 05/11/19 04:40 Labs: Laboratory Last Values WBC 11.7 K/mm3 (4.5-11.0) H 05/09/19 05:41 RBC 3.27 M/mm3 (3.65-5.03) L 05/09/19 05:41 Hgb 9.2 gm/dl (11.8-15.2) L 05/09/19 05:41 Hct 27.9 % (35.5-45.6) L 05/09/19 05:41 MCV 86 fl (84-94) 05/09/19 05:41 MCH 28 pg (28-32) 05/09/19 05:41 MCHC 33 % (32-34) 05/09/19 05:41 RDW 17.8 % (13.2-15.2) H 05/09/19 05:41 Plt Count 305 K/mm3 (140-440) 05/09/19 05:41 Lymph % (Auto) 17.9 % (13.4-35.0) 05/09/19 05:41 [place] % (Auto) 5.6 % (0.0-7.3) 05/09/19 05:41 Eos % (Auto) 14.3 % (0.0-4.3) H 05/09/19 05:41 Baso % (Auto) 0.7 % (0.0-1.8) 05/09/19 05:41 Lymph # 2.1 K/mm3 (1.2-5.4) 05/09/19 05:41 [place] # 0.7 K/mm3 (0.0-0.8) 05/09/19 05:41 Eos # 1.7 K/mm3 (0.0-0.4) H 05/09/19 05:41 Baso # 0.1 K/mm3 (0.0-0.1) 05/09/19 05:41 Add Manual Diff Complete 04/11/19 04:16 Total Counted 100 04/11/19 04:16 Seg Neutrophils % 61.5 % (40.0-70.0) 05/09/19 05:41 Seg Neuts % (Manual) 71.0 % (40.0-70.0) H 04/11/19 04:16 Band Neutrophils % 1.0 % 04/11/19 04:16 Lymphocytes % (Manual) 17.0 % (13.4-35.0) 04/11/19 04:16 Reactive Lymphs % (Man) 0 % 04/11/19 04:16 Monocytes % (Manual) 8.0 % (0.0-7.3) H 04/11/19 04:16 Eosinophils % (Manual) 2.0 % (0.0-4.3) 04/11/19 04:16 Basophils % (Manual) 1.0 % (0.0-1.8) 04/11/19 04:16 Metamyelocytes % 0 % 04/11/19 04:16 Myelocytes % 0 % 04/11/19 04:16 Promyelocytes % 0 % 04/11/19 04:16 Blast Cells % 0 % 04/11/19 04:16 Nucleated RBC % Not Reportable 04/11/19 04:16 Seg Neutrophils # 7.2 K/mm3 (1.8-7.7) 05/09/19 05:41 Seg Neutrophils # Man 8.2 K/mm3 (1.8-7.7) H 04/11/19 04:16 Band Neutrophils # 0.1 K/mm3 04/11/19 04:16 Lymphocytes # (Manual) 2.0 K/mm3 (1.2-5.4) 04/11/19 04:16 Abs React Lymphs (Man) 0.0 K/mm3 04/11/19 04:16 Monocytes # (Manual) 0.9 K/mm3 (0.0-0.8) H 04/11/19 04:16 Eosinophils # (Manual) 0.2 K/mm3 (0.0-0.4) 04/11/19 04:16 Basophils # (Manual) 0.1 K/mm3 (0.0-0.1) 04/11/19 04:16 Metamyelocytes # 0.0 K/mm3 04/11/19 04:16 Myelocytes # 0.0 K/mm3 04/11/19 04:16 Promyelocytes # 0.0 K/mm3 04/11/19 04:16 Blast Cells # 0.0 K/mm3 04/11/19 04:16 WBC Morphology Not Reportable 04/11/19 04:16 Hypersegmented Neuts Not Reportable 04/11/19 04:16 Hyposegmented Neuts Not Reportable 04/11/19 04:16 Hypogranular Neuts Not Reportable 04/11/19 04:16 Smudge Cells Not Reportable 04/11/19 04:16 Toxic Granulation Not Reportable 04/11/19 04:16 Toxic Vacuolation Not Reportable 04/11/19 04:16 Dohle Bodies Not Reportable 04/11/19 04:16 Pelger-Huet Anomaly Not Reportable 04/11/19 04:16 Joyce Rods Not Reportable 04/11/19 04:16 Platelet Estimate Consistent w auto 04/11/19 04:16 Clumped Platelets Not Reportable 04/11/19 04:16 Plt Clumps, EDTA Not Reportable 04/11/19 04:16 Large Platelets Not Reportable 04/11/19 04:16 Giant Platelets Not Reportable 04/11/19 04:16 Platelet Satelliting Not Reportable 04/11/19 04:16 Plt Morphology Comment Not Reportable 04/11/19 04:16 RBC Morphology Not Reportable 04/11/19 04:16 Dimorphic RBCs Not Reportable 04/11/19 04:16 Polychromasia Not Reportable 04/11/19 04:16 Hypochromasia Not Reportable 04/11/19 04:16 Poikilocytosis Not Reportable 04/11/19 04:16 Anisocytosis Rare 04/11/19 04:16 Microcytosis Rare 04/11/19 04:16 Macrocytosis Not Reportable 04/11/19 04:16 Spherocytes Not Reportable 04/11/19 04:16 Pappenheimer Bodies Not Reportable 04/11/19 04:16 Sickle Cells Not Reportable 04/11/19 04:16 Target Cells Not Reportable 04/11/19 04:16 Tear Drop Cells Not Reportable 04/11/19 04:16 Ovalocytes Not Reportable 04/11/19 04:16 Stomatocytes Few 03/26/19 Unknown Helmet Cells Not Reportable 04/11/19 04:16 Shrestha-Mcrae Bodies Not Reportable 04/11/19 04:16 [place] Rings Not Reportable 04/11/19 04:16 [place] Cells Not Reportable 04/11/19 04:16 Bite Cells Not Reportable 04/11/19 04:16 Crenated Cell Not Reportable 04/11/19 04:16 Elliptocytes Not Reportable 04/11/19 04:16 Acanthocytes (Spur) Not Reportable 04/11/19 04:16 Rouleaux Not Reportable 04/11/19 04:16 Hemoglobin C Crystals Not Reportable 04/11/19 04:16 Schistocytes Not Reportable 04/11/19 04:16 Malaria parasites Not Reportable 04/11/19 04:16 Phil Bodies Not Reportable 04/11/19 04:16 Hem Pathologist Commnt No 04/11/19 04:16 PT 14.8 Sec. (12.2-14.9) 05/10/19 06:42 INR 1.17 (0.87-1.13) H 05/10/19 06:42 APTT 27.9 Sec. (24.2-36.6) 05/10/19 06:42 Fibrinogen 226 mg/dl (211-480) 03/28/19 12:00 D-Dimer 4845.98 ng/mlDDU (0-234) H 03/28/19 12:00 Heparin Anti-Xa Level 0.23 U.I./ml (0.3-0.7) L 03/28/19 05:13 POC ABG pH 7.401 (7.35-7.45) 04/07/19 12:57 ABG pH 7.388 pH Units (7.350-7.450) 04/06/19 05:20 POC ABG pCO2 41.5 (35-45) 04/07/19 12:57 ABG pCO2 38.5 mm Hg 04/06/19 05:20 POC ABG pO2 107 (80-105) H 04/07/19 12:57 ABG pO2 104.0 mm Hg (80.0-90.0) H 04/06/19 05:20 POC ABG HCO3 25.7 (22-26 mml/L) 04/07/19 12:57 ABG HCO3 22.6 mmol/L (20.0-26.0) 04/06/19 05:20 POC ABG Total CO2 27 (23-27mmol/L) 04/07/19 12:57 POC ABG O2 Sat 98 04/07/19 12:57 ABG O2 Saturation 97.8 % (95.0-99.0) 04/06/19 05:20 ABG O2 Content 10.0 (0.0-44) 04/06/19 05:20 POC ABG Base Excess 1 ((-2) - (+3)mmol/L) 04/07/19 12:57 ABG Base Excess -2.1 mmol/L (-2.0-3.0) L 04/06/19 05:20 ABG Hemoglobin 7.3 gm/dl (14.0-18.0) L 04/06/19 05:20 ABG Carboxyhemoglobin 1.7 % (0.0-5.0) 04/06/19 05:20 ABG Methemoglobin 0.6 % (0.0-1.5) 04/06/19 05:20 Oxyhemoglobin 95.5 % (95.0-99.0) 04/06/19 05:20 FiO2 30 % 04/07/19 12:57 Sodium 137 mmol/L (137-145) 05/11/19 04:40 Potassium 3.7 mmol/L (3.6-5.0) 05/11/19 04:40 Chloride 103.4 mmol/L (98-107) 05/11/19 04:40 Carbon Dioxide 20 mmol/L (22-30) L 05/11/19 04:40 Anion Gap 17 mmol/L 05/11/19 04:40 BUN 15 mg/dL (9-20) 05/11/19 04:40 Creatinine 1.4 mg/dL (0.8-1.5) 05/11/19 04:40 Estimated GFR 55 ml/min 05/11/19 04:40 BUN/Creatinine Ratio 11 % 05/11/19 04:40 Glucose 88 mg/dL (75-100) 05/11/19 04:40 POC Glucose 86 (70-105) 05/11/19 02:24 Lactic Acid 1.90 mmol/L (0.7-2.0) 03/21/19 21:31 Calcium 9.9 mg/dL (8.4-10.2) 05/11/19 04:40 Ionized Calcium 7.2 mg/dL (4.8-5.6) H* 04/29/19 14:14 Phosphorus 2.80 mg/dL (2.5-4.5) 05/03/19 05:37 Magnesium 2.20 mg/dL (1.7-2.3) 05/04/19 06:49 Iron 26 ug/dL (49-181) L 04/02/19 05:03 TIBC 138 mcg/dL (250-450) L 04/02/19 05:03 Ferritin 607.0 ng/mL (13.0-400.0) H 04/02/19 05:03 Total Bilirubin 0.30 mg/dL (0.1-1.2) 05/09/19 05:41 Direct Bilirubin 0.4 mg/dL (0-0.2) H 03/31/19 08:20 Indirect Bilirubin 0.1 mg/dL 03/31/19 08:20 AST 13 units/L (5-40) 05/09/19 05:41 ALT 14 units/L (7-56) 05/09/19 05:41 Alkaline Phosphatase 70 units/L (35-129) 05/09/19 05:41 Total Creatine Kinase 62 units/L (55-170) 04/07/19 05:40 CK-MB (CK-2) 54.3 ng/mL (0.0-4.0) H 03/17/19 07:16 CK-MB (CK-2) Rel Index 0.0 (0-4) 03/17/19 07:16 Troponin T 0.058 ng/mL (0.00-0.029) H 03/17/19 07:16 C-Reactive Protein 7.10 mg/dL (0.00-1.30) H 04/17/19 04:15 Serum Total Protein 5.7 g/dL (6.1-8.1) L 05/01/19 06:52 Total Protein 6.8 g/dL (6.3-8.2) 05/09/19 05:41 Albumin 3.3 g/dL (3.9-5) L 05/09/19 05:41 Albumin/Globulin Ratio 0.9 % 05/09/19 05:41 [id number]-[id number] 0.5 g/dL (0.2-0.3) H 05/01/19 06:52 Ifgxa-9-Axrgbnqho 0.9 g/dL (0.5-0.9) 05/01/19 06:52 Beta Globulins 0.4 g/dL (0.2-0.5) 05/01/19 06:52 Gamma Globulins 1.0 g/dL (0.8-1.7) 05/01/19 06:52 Abnorm Protein Band 1 see below 05/01/19 06:52 PEP Interpretation see below H 05/01/19 06:52 Triglycerides 309 mg/dL (2-149) H 03/29/19 06:22 Cholesterol 88 mg/dL (50-199) 03/16/19 22:32 LDL Cholesterol Direct 10 mg/dL (50-130) L 03/16/19 22:32 HDL Cholesterol 7 mg/dL (40-59) L 03/16/19 22:32 Cholesterol/HDL Ratio 12.57 % 03/16/19 22:32 Vitamin B12 903.0 pg/mL (211-911) 04/02/19 05:03 25-OH Vitamin D Total See scanned result 04/29/19 14:14 25-Hydroxy Vitamin D2 <4 ng/mL 04/29/19 14:14 1,25 Dihydroxy Vit D2 <8 pg/mL 04/29/19 14:14 25-Hydroxy Vitamin D3 11 ng/mL 04/29/19 14:14 1,25 Dihydroxy Vit D3 <8 pg/mL 04/29/19 14:14 Folate 8.05 ng/mL (7.3-26.0) 04/02/19 05:03 Procalcitonin 25.42 ng/mL (<0.15) 03/27/19 19:21 TSH 2.200 mlU/mL (0.270-4.200) 03/16/19 17:05 Free T4 0.72 ng/dL (0.76-1.46) L 03/16/19 17:05 PTH Intact 8.83 pg/mL (15-65) L 04/29/19 14:14 Urine Color Yellow (Yellow) 04/15/19 22:11 Urine Turbidity Clear (Clear) 04/15/19 22:11 Urine pH 6.0 (5.0-7.0) 04/15/19 22:11 Ur Specific [place] 1.010 (1.003-1.030) 04/15/19 22:11 Urine Protein 30 mg/dl mg/dL (Negative) 04/15/19 22:11 Urine Glucose (UA) Neg mg/dL (Negative) 04/15/19 22:11 Urine Ketones Neg mg/dL (Negative) 04/15/19 22:11 Urine Blood Mod (Negative) 04/15/19 22:11 Urine Nitrite Neg (Negative) 04/15/19 22:11 Urine Bilirubin Neg (Negative) 04/15/19 22:11 Urine Urobilinogen < 2.0 mg/dL (<2.0) 04/15/19 22:11 Ur Leukocyte Esterase Neg (Negative) 04/15/19 22:11 Urine WBC (Auto) 4.0 /HPF (0.0-6.0) 04/15/19 22:11 Urine RBC (Auto) 2.0 /HPF (0.0-6.0) 04/15/19 22:11 U Epithel Cells (Auto) < 1.0 /HPF (0-13.0) 04/15/19 22:11 Amorphous Crystals 1+ 04/05/19 16:50 Urine Mucus Few /HPF 03/17/19 16:05 Urine Sperm 2+ /HPF (SPINE NURSE) 03/17/19 16:05 Urine Eosinophils None seen (None Seen) 03/17/19 16:05 Ur Random Creatinine See scanned result 05/01/19 06:15 U Random Total Protein See scanned result 05/01/19 06:15 Urine Creatinine 106.6 mg/dL (0.1-20.0) H 03/17/19 16:05 Protein/Creatinin Ratio See scanned result 05/01/19 06:15 Urine Sodium 95 mmol/L 03/17/19 16:05 U Abnormal Prot Band 1 See scanned result 05/01/19 06:15 U Abnormal Prot Band 2 See scanned result 05/01/19 06:15 U Abnormal Prot Band 3 See scanned result 05/01/19 06:15 Vancomycin Trough 11.5 ug/mL (5.0-20.0) 03/18/19 13:19 Random Vancomycin 10.8 ug/mL (0-40.0) 04/14/19 03:55 Salicylates < 0.3 mg/dL (2.8-20.0) L 03/16/19 17:05 Urine Opiates Screen Presumptive negative 03/17/19 16:05 Urine Methadone Screen Presumptive negative 03/17/19 16:05 Acetaminophen < 5.0 ug/mL (10.0-30.0) L 03/16/19 17:05 Ur Barbiturates Screen Presumptive negative 03/17/19 16:05 Ur Phencyclidine Scrn Presumptive negative 03/17/19 16:05 Ur Amphetamines Screen Presumptive negative 03/17/19 16:05 U Benzodiazepines Scrn Presumptive positive 03/17/19 16:05 Urine Cocaine Screen Presumptive negative 03/17/19 16:05 U Marijuana (THC) Screen Presumptive negative 03/17/19 16:05 Drugs of Abuse Note Disclamer 03/17/19 16:05 Plasma/Serum Alcohol < 0.01 % (0-0.07) 03/16/19 17:05 Immunofix Electrophor see below 05/01/19 06:52 LANDY Screen Negative (Negative) 04/17/19 04:15 Proteinase 3 (PR3) Ab <1.0 AI (<1.0) 04/21/19 04:22 Myeloperoxidase Ab <1.0 AI (<1.0) 04/21/19 04:22 Glomerular Base Mem IgG See scanned result 04/21/19 04:22 Complement C3 150 mg/dL (82-185) 04/17/19 04:15 Complement C4 37 mg/dL (15-53) 04/17/19 04:15 Hepatitis A IgM Ab Non-reactive (NonReactive) 04/18/19 10:02 Hep Bs Antigen Non-reactive (Negative) 04/18/19 10:02 Hep B Core IgM Ab Non-reactive (NonReactive) 04/18/19 10:02 Hepatitis C Antibody Non-reactive (NonReactive) 04/18/19 10:02 HIV 1&2 Antibody Rapid Non react (Non React) 03/17/19 11:52 HIV P24 Antigen Non react (Non React) 03/17/19 11:52 Influenza A (Rapid) Negative (Negative) 03/17/19 17:00 Influenza B (Rapid) Negative (Negative) 03/17/19 17:00 Group A Strep Rapid Negative (Negative) 03/17/19 17:00 Miscellaneous Test Flexitest 1 03/21/19 12:00 Blood Type A POSITIVE 04/02/19 16:34 Antibody Screen Negative 04/02/19 16:34 Crossmatch See Detail 04/02/19 16:34 Active Medications - Current Medications Current Medications: Generic Name Dose Route Start Last Admin Trade Name Freq PRN Reason Stop Dose Admin Acetaminophen 650 mg 04/02/19 23:26 05/08/19 21:01 Tylenol PO 650 mg Q4H PRN Administration Pain, Mild (1-3),temp>100.5 Acetaminophen/Hydrocodone Bitart 1 each 05/02/19 11:50 05/12/19 11:13 [place] 5/325 PO 1 each Q6H PRN Administration Pain, Moderate (4-6) Al Hydrox/Mg Hydrox/Simethicone 15 ml 04/30/19 15:15 04/30/19 15:53 Alum-Mag Hydrox-Simeth 362-434-56ox/5ml PO 15 ml Q4H PRN Administration Indigestion Albuterol 2.5 mg 03/29/19 13:08 Proventil IH Q4HRT PRN Shortness Of Breath Lipase/Protease/Amylase 1 each 04/20/19 13:17 Pancreaze 10,500 Unit FEEDTUBE PRN PRN For Clogged Feeding Tube Bacitracin 1 applic 04/17/19 08:00 Antibiotic Oint TP Q4H PRN upper lip sore/open Dextrose 50 gm 04/17/19 08:00 D50w (25gm) Vial IV Q1H PRN Hypoglycemia Gabapentin 100 mg 05/11/19 14:00 05/12/19 05:48 Gabapentin PO 100 mg Q8HR PAOLO Administration Hydralazine HCl 20 mg 04/14/19 03:00 04/14/19 03:11 Apresoline IV 20 mg Q4H PRN Administration hypertemsion Hydrophilic Ointment 1 applic 03/16/19 15:50 04/19/19 18:24 Vaseline Lip Therapy TP 1 applic Q2HR PRN Administration Dry Lips Sodium Chloride 100 mls @ 999 mls/hr 04/20/19 08:41 Nacl 0.9% IV NEYMAR PRN Hypotension Sodium Chloride 500 mls @ 50 mls/hr 05/10/19 08:00 05/11/19 06:55 Nacl 0.9% 500 Ml IV 50 mls/hr DIRECT PAOLO Administration Melatonin 5 mg 04/26/19 21:00 05/09/19 23:41 Melatonin PO 5 mg QHS PRN Administration Sleep Metoprolol Succinate 50 mg 05/10/19 10:00 05/12/19 11:09 Metoprolol Xl PO 50 mg QDAY PAOLO Administration Multi-Ingred Cream/Lotion/Oil/Oint 1 applic 03/16/19 15:50 03/19/19 20:10 Artificial Tears Ophth Oint OU 1 applic Q4HR PRN Administration Dry Eye(s) Pantoprazole Sodium 40 mg 05/07/19 22:00 05/12/19 11:10 Protonix PO 40 mg BID PAOLO Administration Simple Syrup 15 ml 04/20/19 13:17 Simple Syrup FEEDTUBE PRN PRN Hypoglycemia Simple Syrup 30 ml 04/20/19 13:29 05/01/19 17:57 Simple Syrup FEEDTUBE 30 ml PRN PRN Administration Hypoglycemia Sodium Bicarbonate 325 mg 04/20/19 13:17 04/27/19 11:03 Sodium Bicarbonate FEEDTUBE 325 mg PRN PRN Administration For Clogged Feeding Tube Nutrition/Malnutrition Assess - Dietary Evaluation Nutrition/Malnutrition Findings: Nutrition Notes Start: 03/17/19 14:22 Freq: Status: Active Protocol: Document 05/07/19 14:38 JOVANNI (Rec: 05/07/19 14:46 JOVANNI [id number]) Nutrition Notes Initial or Follow up Reassessment Current Diagnosis Acute Kidney Injury,Sepsis Other Pertinent Diagnosis GIB, on HD, afib Current Diet Regular + Ensure Clear daily Labs/Tests K 3.5 Ca 10.7 Pertinent Medications Reviewed Height 6 ft Weight 146.8 kg [place] Body Weight (kg) 80.90 BMI 43.9 Subjective/Other Information No meal intakes documented. Pt reports "pretty good" appetite. He is eating at least 50% of meals and drinks ONS. Burn Absent Trauma Absent #1 Nutrition Diagnosis Inadequate oral intake As Evidenced by Signs and Symptoms pt reports good appetite and is consuming at least 50% of meals Diagnosis Progress(for reassessment Improved documentation) Is patient on ventilator? No Is Patient Ambulatory and/or Out of Bed No REE-([place]-St. Jeor-confined to bed) 2871.756 Kcal/Kg value to use for calculation 14 Approximate Energy Requirements Using 2054 kcal/Kg Calculation Used for Recommendations Kcal/kg Additional Notes Pro needs >1.2g/kg adjBW: > 137g/day Fluid needs 1ml/kcal Nutrition Intervention Change Diet Order: Continue current diet order Add Supplement/Snack (indicate name/kcal Ensure Clear once daily /protein ) Provides kCal: 240 Provides Protein (gm) 8 Goal #1 Meet at least 75% of kcal/PRO needs via PO and ONS intakes Follow-Up By: 05/14/19 Additional Comments F/U: stable intakes (meals/ONS ), wt
--- NOTE | 2019-05-12 11:54 | Progress Note ---
Assessment and Plan Severe sepsis with shock, resolved. Right axilla abscess versus localized pannus/fatty collection. Acute hypoxemic respiratory failure, s/p mechanical ventilator support. Likely aspiration pneumonia, bilateral. Morbid obesity. Acute kidney injury secondary to ATN s/p HD. Leukocytosis-resolved Elevated serum transaminases/possible shock liver-- Resolved. Acute encephalopathy, toxic metabolic- resolved Thrombocytopenia- etiology, multifactorial- resolved RIJ non-occlusive thrombus Oropharyngeal dysphagia Acute blood loss anemia with hemorrhagic shock- resolved Critical illness myopathy Hypernatremia-resolved Continue all supportive care -wean FiO2 for O2 sats>92% -prn ABG and CXR - Continue to monitor off antibiotics per ID. s/p empiric antibiotics - prn analgesia - prn supportive blood transfusions to keep HgB > 7.0 - continue to avoid nephrotoxins - continue VTE prophylaxis ( SCDs and therapeutic pantoprazole, dosed for renal function) - accuchecks with glycemic control per SSI for target BG of 140-180 mg/dl - avoid hypoglycemia - Continue PT/OT/[employer]IES -Discharge planning CONDITION: IMPROVING PROGNOSIS: FAIR CODE STATUS: FULL Subjective Date of service: 05/12/19 Principal diagnosis: Anemia - DVT rt IJ, GI bleeding Interval history: Patient is seen today for: Severe sepsis with shock; Acute hypoxemic respiratory failure; Aspiration pneumonia; Morbid obesity; Rhabdomyolysis; Acute kidney injury; Morbid obesity; Elevated serum transaminases/possible shock liver; Acute encephalopathy (Toxic/Met) Seen and examined at bedside; 24hour events reviewed; nursing and respiratory care staff consulted; no adverse overnight events reported to me; resting peacefully in bed; denies any chest pain, no shortness of breath. Just tired and weak Vitals, labs, medications, chart and imaging reviewed. Objective Vital Signs - 12hr 05/12/19 05/12/19 05/12/19 05:27 10:53 11:09 Temperature 97.4 F L 98.0 F Pulse Rate 83 89 89 Respiratory 18 16 Rate Blood Pressure 130/86 127/78 127/78 O2 Sat by Pulse 98 98 Oximetry Constitutional: no acute distress, alert, other (middle aged morbidly obese CM, normocephalic, in no distress) Eyes: non-icteric ENT: oropharynx moist Neck: supple, no lymphadenopathy, no JVD, other (large neck circumference) Effort: normal Ascultation: Bilateral: diminished breath sounds Cardiovascular: regular rate and rhythm, other ( S1,S2) Gastrointestinal: normoactive bowel sounds, soft, non-tender, non-distended, other (obese) Integumentary: normal Extremities: no cyanosis, pink and warm, pulses normal, no ischemia or petechiae Neurologic: normal mental status, non-focal exam (grossly), pupils equal and round, CN II-XII normal, other (very weak in the lower extremities) Psychiatric: mood appropriate, affect normal CBC and BMP: 05/13/19 08:32 05/13/19 08:32 ABG, PT/INR, D-dimer: ABG POC ABG pH 7.401 (7.35-7.45) 04/07/19 12:57 ABG pH 7.388 pH Units (7.350-7.450) 04/06/19 05:20 POC ABG pCO2 41.5 (35-45) 04/07/19 12:57 ABG pCO2 38.5 mm Hg 04/06/19 05:20 POC ABG pO2 107 (80-105) H 04/07/19 12:57 ABG pO2 104.0 mm Hg (80.0-90.0) H 04/06/19 05:20 POC ABG HCO3 25.7 (22-26 mml/L) 04/07/19 12:57 POC ABG Total CO2 27 (23-27mmol/L) 04/07/19 12:57 POC ABG O2 Sat 98 04/07/19 12:57 ABG O2 Saturation 97.8 % (95.0-99.0) 04/06/19 05:20 PT/INR, D-dimer PT 14.8 Sec. (12.2-14.9) 05/10/19 06:42 INR 1.17 (0.87-1.13) H 05/10/19 06:42 D-Dimer 4845.98 ng/mlDDU (0-234) H 03/28/19 12:00 Abnormal lab findings: Abnormal Labs 03/16/19 03/16/19 03/16/19 15:32 16:03 16:05 WBC 27.0 H RBC 5.55 H Hgb 15.7 H Hct 47.1 H MCV MCH MCHC RDW Plt Count 75 L Lymph % (Auto) Armstrong % (Auto) Eos % (Auto) Lymph # Armstrong # Eos # Seg Neutrophils % Seg Neuts % (Manual) 85.0 H Lymphocytes % (Manual) 2.0 L Monocytes % (Manual) Nucleated RBC % Seg Neutrophils # Seg Neutrophils # Man 23.0 H Lymphocytes # (Manual) 0.5 L Monocytes # (Manual) PT INR D-Dimer Heparin Anti-Xa Level POC ABG pH ABG pH POC ABG pCO2 POC ABG pO2 ABG pO2 ABG HCO3 ABG O2 Saturation ABG Base Excess ABG Hemoglobin Oxyhemoglobin Sodium 127 L Potassium Chloride 87.8 L Carbon Dioxide 17 L BUN 49 H Creatinine 5.8 H Glucose 150 H POC Glucose 118 H Lactic Acid Calcium 6.6 L Ionized Calcium Phosphorus Magnesium 1.10 L Iron TIBC Ferritin Total Bilirubin Direct Bilirubin AST ALT Alkaline Phosphatase Total Creatine Kinase 69610 H CK-MB (CK-2) Troponin T C-Reactive Protein Serum Total Protein Total Protein Albumin Hyemt-7-Mmmwhjqat Brlbd-9-Ptpcbbuqo PEP Interpretation Triglycerides LDL Cholesterol Direct HDL Cholesterol Free T4 PTH Intact Urine WBC (Auto) Urine Creatinine Salicylates Acetaminophen Crossmatch 03/16/19 03/16/19 03/16/19 16:59 17:05 17:05 WBC RBC Hgb Hct MCV MCH MCHC RDW Plt Count Lymph % (Auto) Armstrong % (Auto) Eos % (Auto) Lymph # Armstrong # Eos # Seg Neutrophils % Seg Neuts % (Manual) Lymphocytes % (Manual) Monocytes % (Manual) Nucleated RBC % Seg Neutrophils # Seg Neutrophils # Man Lymphocytes # (Manual) Monocytes # (Manual) PT INR D-Dimer Heparin Anti-Xa Level POC ABG pH 7.297 L ABG pH POC ABG pCO2 33.0 L POC ABG pO2 ABG pO2 ABG HCO3 ABG O2 Saturation ABG Base Excess ABG Hemoglobin Oxyhemoglobin Sodium Potassium Chloride Carbon Dioxide BUN Creatinine Glucose POC Glucose Lactic Acid Calcium Ionized Calcium Phosphorus Magnesium Iron TIBC Ferritin Total Bilirubin Direct Bilirubin AST ALT Alkaline Phosphatase Total Creatine Kinase 18312 H CK-MB (CK-2) 83.1 H Troponin T C-Reactive Protein Serum Total Protein Total Protein Albumin Kncza-6-Ntamrcoyk Qmhrd-9-Wxpodxytn PEP Interpretation Triglycerides LDL Cholesterol Direct HDL Cholesterol Free T4 0.72 L PTH Intact Urine WBC (Auto) Urine Creatinine Salicylates Acetaminophen Crossmatch 03/16/19 03/16/19 03/16/19 17:05 17:05 17:05 WBC RBC Hgb Hct MCV MCH MCHC RDW Plt Count Lymph % (Auto) Armstrong % (Auto) Eos % (Auto) Lymph # Armstrong # Eos # Seg Neutrophils % Seg Neuts % (Manual) Lymphocytes % (Manual) Monocytes % (Manual) Nucleated RBC % Seg Neutrophils # Seg Neutrophils # Man Lymphocytes # (Manual) Monocytes # (Manual) PT INR D-Dimer Heparin Anti-Xa Level POC ABG pH ABG pH POC ABG pCO2 POC ABG pO2 ABG pO2 ABG HCO3 ABG O2 Saturation ABG Base Excess ABG Hemoglobin Oxyhemoglobin Sodium Potassium Chloride Carbon Dioxide BUN Creatinine Glucose POC Glucose Lactic Acid 5.10 H* Calcium Ionized Calcium Phosphorus Magnesium Iron TIBC Ferritin Total Bilirubin Direct Bilirubin AST ALT Alkaline Phosphatase Total Creatine Kinase CK-MB (CK-2) Troponin T C-Reactive Protein Serum Total Protein Total Protein Albumin Mwkic-3-Rlrkyjofx Brenp-7-Fscdbzufu PEP Interpretation Triglycerides LDL Cholesterol Direct HDL Cholesterol Free T4 PTH Intact Urine WBC (Auto) Urine Creatinine Salicylates < 0.3 L Acetaminophen < 5.0 L Crossmatch 03/16/19 03/16/19 03/16/19 17:05 17:05 20:35 WBC RBC Hgb Hct MCV MCH MCHC RDW Plt Count Lymph % (Auto) Armstrong % (Auto) Eos % (Auto) Lymph # Armstrong # Eos # Seg Neutrophils % Seg Neuts % (Manual) Lymphocytes % (Manual) Monocytes % (Manual) Nucleated RBC % Seg Neutrophils # Seg Neutrophils # Man Lymphocytes # (Manual) Monocytes # (Manual) PT 15.9 H INR 1.30 H D-Dimer Heparin Anti-Xa Level POC ABG pH ABG pH POC ABG pCO2 POC ABG pO2 ABG pO2 ABG HCO3 ABG O2 Saturation ABG Base Excess ABG Hemoglobin Oxyhemoglobin Sodium Potassium Chloride Carbon Dioxide BUN Creatinine Glucose POC Glucose Lactic Acid 3.30 H* Calcium Ionized Calcium Phosphorus Magnesium Iron TIBC Ferritin Total Bilirubin 6.20 H Direct Bilirubin 5.9 H AST 800 H ALT 120 H Alkaline Phosphatase Total Creatine Kinase CK-MB (CK-2) Troponin T C-Reactive Protein Serum Total Protein Total Protein 4.4 L Albumin 2.4 L Opulj-4-Wkrwhrchw Drkyq-0-Gvokziftm PEP Interpretation Triglycerides LDL Cholesterol Direct HDL Cholesterol Free T4 PTH Intact Urine WBC (Auto) Urine Creatinine Salicylates Acetaminophen Crossmatch 03/16/19 03/16/19 03/16/19 21:45 22:32 Unknown WBC RBC Hgb Hct MCV MCH MCHC RDW Plt Count Lymph % (Auto) Armstrong % (Auto) Eos % (Auto) Lymph # Armstrong # Eos # Seg Neutrophils % Seg Neuts % (Manual) Lymphocytes % (Manual) Monocytes % (Manual) Nucleated RBC % Seg Neutrophils # Seg Neutrophils # Man Lymphocytes # (Manual) Monocytes # (Manual) PT INR D-Dimer Heparin Anti-Xa Level POC ABG pH ABG pH POC ABG pCO2 POC ABG pO2 ABG pO2 ABG HCO3 ABG O2 Saturation ABG Base Excess ABG Hemoglobin Oxyhemoglobin Sodium Potassium Chloride Carbon Dioxide BUN Creatinine Glucose POC Glucose Lactic Acid 3.30 H* 3.00 H* Calcium Ionized Calcium Phosphorus Magnesium Iron TIBC Ferritin Total Bilirubin Direct Bilirubin AST ALT Alkaline Phosphatase Total Creatine Kinase CK-MB (CK-2) Troponin T 0.047 H D C-Reactive Protein Serum Total Protein Total Protein Albumin Xcenq-6-Dauojtgin Cfndw-9-Fwgcbruku PEP Interpretation Triglycerides 395 H LDL Cholesterol Direct 10 L HDL Cholesterol 7 L Free T4 PTH Intact Urine WBC (Auto) Urine Creatinine Salicylates Acetaminophen Crossmatch 03/17/19 03/17/19 03/17/19 03:45 03:45 03:45 WBC RBC Hgb Hct MCV MCH MCHC RDW Plt Count Lymph % (Auto) Armstrong % (Auto) Eos % (Auto) Lymph # Armstrong # Eos # Seg Neutrophils % Seg Neuts % (Manual) Lymphocytes % (Manual) Monocytes % (Manual) Nucleated RBC % Seg Neutrophils # Seg Neutrophils # Man Lymphocytes # (Manual) Monocytes # (Manual) PT INR D-Dimer Heparin Anti-Xa Level POC ABG pH ABG pH POC ABG pCO2 POC ABG pO2 ABG pO2 ABG HCO3 ABG O2 Saturation ABG Base Excess ABG Hemoglobin Oxyhemoglobin Sodium 131 L Potassium Chloride 88.9 L Carbon Dioxide BUN 53 H Creatinine 7.1 H Glucose POC Glucose Lactic Acid 4.10 H* Calcium 5.4 L* D Ionized Calcium Phosphorus 7.30 H Magnesium 1.60 L Iron TIBC Ferritin Total Bilirubin 5.90 H Direct Bilirubin AST 801 H ALT 109 H Alkaline Phosphatase Total Creatine Kinase 10604 H 54588 H CK-MB (CK-2) 41.5 H Troponin T 0.054 H C-Reactive Protein Serum Total Protein Total Protein 4.5 L Albumin 2.0 L Czkgm-5-Zfwframcv Sxbqq-8-Vwualaexj PEP Interpretation Triglycerides LDL Cholesterol Direct HDL Cholesterol Free T4 PTH Intact Urine WBC (Auto) Urine Creatinine Salicylates Acetaminophen Crossmatch 03/17/19 03/17/19 03/17/19 05:47 07:16 07:16 WBC RBC Hgb Hct MCV MCH MCHC RDW Plt Count Lymph % (Auto) Armstrong % (Auto) Eos % (Auto) Lymph # Armstrong # Eos # Seg Neutrophils % Seg Neuts % (Manual) Lymphocytes % (Manual) Monocytes % (Manual) Nucleated RBC % Seg Neutrophils # Seg Neutrophils # Man Lymphocytes # (Manual) Monocytes # (Manual) PT INR D-Dimer Heparin Anti-Xa Level POC ABG pH 7.193 L ABG pH POC ABG pCO2 45.2 H POC ABG pO2 65 L ABG pO2 ABG HCO3 ABG O2 Saturation ABG Base Excess ABG Hemoglobin Oxyhemoglobin Sodium Potassium Chloride Carbon Dioxide BUN Creatinine Glucose POC Glucose Lactic Acid 5.50 H* Calcium Ionized Calcium Phosphorus Magnesium Iron TIBC Ferritin Total Bilirubin Direct Bilirubin AST ALT Alkaline Phosphatase Total Creatine Kinase 42448 H CK-MB (CK-2) 54.3 H Troponin T 0.058 H C-Reactive Protein Serum Total Protein Total Protein Albumin Lrmmv-0-Ovogymkio Mtoxj-6-Mxwggtpqp PEP Interpretation Triglycerides LDL Cholesterol Direct HDL Cholesterol Free T4 PTH Intact Urine WBC (Auto) Urine Creatinine Salicylates Acetaminophen Crossmatch 03/17/19 03/17/19 03/17/19 11:52 12:51 13:01 WBC RBC Hgb Hct MCV MCH MCHC RDW Plt Count Lymph % (Auto) Armstrong % (Auto) Eos % (Auto) Lymph # Armstrong # Eos # Seg Neutrophils % Seg Neuts % (Manual) Lymphocytes % (Manual) Monocytes % (Manual) Nucleated RBC % Seg Neutrophils # Seg Neutrophils # Man Lymphocytes # (Manual) Monocytes # (Manual) PT INR D-Dimer Heparin Anti-Xa Level POC ABG pH 7.154 L ABG pH POC ABG pCO2 34.3 L POC ABG pO2 73 L ABG pO2 ABG HCO3 ABG O2 Saturation ABG Base Excess ABG Hemoglobin Oxyhemoglobin Sodium Potassium Chloride Carbon Dioxide BUN Creatinine Glucose POC Glucose 60 L Lactic Acid 8.20 H* Calcium Ionized Calcium Phosphorus Magnesium Iron TIBC Ferritin Total Bilirubin Direct Bilirubin AST ALT Alkaline Phosphatase Total Creatine Kinase CK-MB (CK-2) Troponin T C-Reactive Protein Serum Total Protein Total Protein Albumin Jjuyi-5-Pskemuyem Zrgda-9-Kiwnbfvnu PEP Interpretation Triglycerides LDL Cholesterol Direct HDL Cholesterol Free T4 PTH Intact Urine WBC (Auto) Urine Creatinine Salicylates Acetaminophen Crossmatch 03/17/19 03/17/19 03/17/19 14:37 14:37 14:37 WBC 29.3 H RBC Hgb Hct MCV MCH MCHC RDW 15.8 H Plt Count 45 L Lymph % (Auto) Armstrong % (Auto) Eos % (Auto) Lymph # Armstrong # Eos # Seg Neutrophils % Seg Neuts % (Manual) 81.0 H Lymphocytes % (Manual) 1.0 L Monocytes % (Manual) 15.0 H Nucleated RBC % Seg Neutrophils # Seg Neutrophils # Man 23.7 H Lymphocytes # (Manual) 0.3 L Monocytes # (Manual) 4.4 H PT INR D-Dimer Heparin Anti-Xa Level POC ABG pH ABG pH POC ABG pCO2 POC ABG pO2 ABG pO2 ABG HCO3 ABG O2 Saturation ABG Base Excess ABG Hemoglobin Oxyhemoglobin Sodium Potassium Chloride Carbon Dioxide BUN Creatinine Glucose POC Glucose Lactic Acid 4.90 H* Calcium Ionized Calcium Phosphorus Magnesium Iron TIBC Ferritin Total Bilirubin Direct Bilirubin AST ALT Alkaline Phosphatase Total Creatine Kinase CK-MB (CK-2) Troponin T C-Reactive Protein 24.90 H Serum Total Protein Total Protein Albumin Uzsox-0-Hsxmkqyyx Eaynb-2-Wlcxlnpky PEP Interpretation Triglycerides LDL Cholesterol Direct HDL Cholesterol Free T4 PTH Intact Urine WBC (Auto) Urine Creatinine Salicylates Acetaminophen Crossmatch 03/17/19 03/17/19 03/17/19 16:05 16:05 17:02 WBC RBC Hgb Hct MCV MCH MCHC RDW Plt Count Lymph % (Auto) Armstrong % (Auto) Eos % (Auto) Lymph # Armstrong # Eos # Seg Neutrophils % Seg Neuts % (Manual) Lymphocytes % (Manual) Monocytes % (Manual) Nucleated RBC % Seg Neutrophils # Seg Neutrophils # Man Lymphocytes # (Manual) Monocytes # (Manual) PT INR D-Dimer Heparin Anti-Xa Level POC ABG pH 7.183 L ABG pH POC ABG pCO2 POC ABG pO2 65 L ABG pO2 ABG HCO3 ABG O2 Saturation ABG Base Excess ABG Hemoglobin Oxyhemoglobin Sodium Potassium Chloride Carbon Dioxide BUN Creatinine Glucose POC Glucose Lactic Acid Calcium Ionized Calcium Phosphorus Magnesium Iron TIBC Ferritin Total Bilirubin Direct Bilirubin AST ALT Alkaline Phosphatase Total Creatine Kinase CK-MB (CK-2) Troponin T C-Reactive Protein Serum Total Protein Total Protein Albumin Zukvm-9-Tgkbrwplb Bzrho-9-Wtyupydmq PEP Interpretation Triglycerides LDL Cholesterol Direct HDL Cholesterol Free T4 PTH Intact Urine WBC (Auto) 30.0 H Urine Creatinine 106.6 H Salicylates Acetaminophen Crossmatch 03/18/19 03/18/19 03/18/19 05:12 05:16 05:53 WBC RBC Hgb Hct MCV MCH MCHC RDW Plt Count Lymph % (Auto) Armstrong % (Auto) Eos % (Auto) Lymph # Armstrong # Eos # Seg Neutrophils % Seg Neuts % (Manual) Lymphocytes % (Manual) Monocytes % (Manual) Nucleated RBC % Seg Neutrophils # Seg Neutrophils # Man Lymphocytes # (Manual) Monocytes # (Manual) PT INR D-Dimer Heparin Anti-Xa Level POC ABG pH 7.257 L ABG pH POC ABG pCO2 31.6 L POC ABG pO2 69 L ABG pO2 ABG HCO3 ABG O2 Saturation ABG Base Excess ABG Hemoglobin Oxyhemoglobin Sodium Potassium Chloride Carbon Dioxide BUN Creatinine Glucose POC Glucose 141 H Lactic Acid 5.00 H* Calcium Ionized Calcium Phosphorus Magnesium Iron TIBC Ferritin Total Bilirubin Direct Bilirubin AST ALT Alkaline Phosphatase Total Creatine Kinase CK-MB (CK-2) Troponin T C-Reactive Protein Serum Total Protein Total Protein Albumin Gwwwf-1-Atkkgaofc Eldgx-6-Gmaptshjp PEP Interpretation Triglycerides LDL Cholesterol Direct HDL Cholesterol Free T4 PTH Intact Urine WBC (Auto) Urine Creatinine Salicylates Acetaminophen Crossmatch 03/18/19 03/18/19 03/18/19 06:57 08:40 08:40 WBC 31.7 H RBC Hgb Hct MCV MCH MCHC RDW 15.5 H Plt Count 35 L Lymph % (Auto) Armstrong % (Auto) Eos % (Auto) Lymph # Armstrong # Eos # Seg Neutrophils % Seg Neuts % (Manual) Lymphocytes % (Manual) Monocytes % (Manual) Nucleated RBC % Seg Neutrophils # Seg Neutrophils # Man Lymphocytes # (Manual) Monocytes # (Manual) PT INR D-Dimer Heparin Anti-Xa Level POC ABG pH ABG pH POC ABG pCO2 POC ABG pO2 ABG pO2 ABG HCO3 ABG O2 Saturation ABG Base Excess ABG Hemoglobin Oxyhemoglobin Sodium 132 L Potassium 5.5 H D Chloride 88.5 L Carbon Dioxide 18 L BUN 71 H Creatinine 8.1 H Glucose 205 H POC Glucose Lactic Acid 5.00 H* Calcium 4.1 L* D Ionized Calcium Phosphorus Magnesium 2.40 H Iron TIBC Ferritin Total Bilirubin 7.50 H Direct Bilirubin AST 1088 H ALT 159 H Alkaline Phosphatase 190 H Total Creatine Kinase 084547 H CK-MB (CK-2) Troponin T C-Reactive Protein Serum Total Protein Total Protein 4.7 L Albumin 1.8 L Ovxtz-2-Fzqrlzvzj Sdevq-7-Ykatddpjb PEP Interpretation Triglycerides LDL Cholesterol Direct HDL Cholesterol Free T4 PTH Intact Urine WBC (Auto) Urine Creatinine Salicylates Acetaminophen Crossmatch 03/18/19 03/18/19 03/18/19 12:33 12:50 13:19 WBC RBC Hgb Hct MCV MCH MCHC RDW Plt Count Lymph % (Auto) Armstrong % (Auto) Eos % (Auto) Lymph # Armstrong # Eos # Seg Neutrophils % Seg Neuts % (Manual) Lymphocytes % (Manual) Monocytes % (Manual) Nucleated RBC % Seg Neutrophils # Seg Neutrophils # Man Lymphocytes # (Manual) Monocytes # (Manual) PT INR D-Dimer Heparin Anti-Xa Level POC ABG pH 7.282 L ABG pH POC ABG pCO2 POC ABG pO2 67 L ABG pO2 ABG HCO3 ABG O2 Saturation ABG Base Excess ABG Hemoglobin Oxyhemoglobin Sodium Potassium Chloride Carbon Dioxide BUN Creatinine Glucose POC Glucose 129 H Lactic Acid 3.30 H* Calcium Ionized Calcium Phosphorus Magnesium Iron TIBC Ferritin Total Bilirubin Direct Bilirubin AST ALT Alkaline Phosphatase Total Creatine Kinase CK-MB (CK-2) Troponin T C-Reactive Protein Serum Total Protein Total Protein Albumin Cbrma-1-Viowntcoy Njjij-0-Qdmpbdhfo PEP Interpretation Triglycerides LDL Cholesterol Direct HDL Cholesterol Free T4 PTH Intact Urine WBC (Auto) Urine Creatinine Salicylates Acetaminophen Crossmatch 03/18/19 03/18/19 03/18/19 13:19 16:50 18:11 WBC RBC Hgb Hct MCV MCH MCHC RDW Plt Count Lymph % (Auto) Armstrong % (Auto) Eos % (Auto) Lymph # Armstrong # Eos # Seg Neutrophils % Seg Neuts % (Manual) Lymphocytes % (Manual) Monocytes % (Manual) Nucleated RBC % Seg Neutrophils # Seg Neutrophils # Man Lymphocytes # (Manual) Monocytes # (Manual) PT INR D-Dimer Heparin Anti-Xa Level POC ABG pH ABG pH POC ABG pCO2 POC ABG pO2 59 L ABG pO2 ABG HCO3 ABG O2 Saturation ABG Base Excess ABG Hemoglobin Oxyhemoglobin Sodium Potassium Chloride Carbon Dioxide BUN Creatinine Glucose POC Glucose 151 H Lactic Acid Calcium 4.2 L* Ionized Calcium Phosphorus Magnesium Iron TIBC Ferritin Total Bilirubin Direct Bilirubin AST ALT Alkaline Phosphatase Total Creatine Kinase 502016 H CK-MB (CK-2) Troponin T C-Reactive Protein Serum Total Protein Total Protein Albumin Bdham-0-Mrtgcaqvv Wyotu-0-Dgqhgmrjz PEP Interpretation Triglycerides LDL Cholesterol Direct HDL Cholesterol Free T4 PTH Intact Urine WBC (Auto) Urine Creatinine Salicylates Acetaminophen Crossmatch 03/18/19 03/18/19 03/19/19 18:20 23:39 01:42 WBC RBC Hgb Hct MCV MCH MCHC RDW Plt Count Lymph % (Auto) Armstrong % (Auto) Eos % (Auto) Lymph # Armstrong # Eos # Seg Neutrophils % Seg Neuts % (Manual) Lymphocytes % (Manual) Monocytes % (Manual) Nucleated RBC % Seg Neutrophils # Seg Neutrophils # Man Lymphocytes # (Manual) Monocytes # (Manual) PT INR D-Dimer Heparin Anti-Xa Level POC ABG pH 7.345 L ABG pH 7.285 L POC ABG pCO2 POC ABG pO2 59 L ABG pO2 44.0 L ABG HCO3 ABG O2 Saturation 70.9 L ABG Base Excess -5.7 L ABG Hemoglobin 11.9 L Oxyhemoglobin 69.6 L Sodium Potassium Chloride Carbon Dioxide BUN Creatinine Glucose POC Glucose 152 H Lactic Acid Calcium Ionized Calcium Phosphorus Magnesium Iron TIBC Ferritin Total Bilirubin Direct Bilirubin AST ALT Alkaline Phosphatase Total Creatine Kinase CK-MB (CK-2) Troponin T C-Reactive Protein Serum Total Protein Total Protein Albumin Hjboe-7-Rzeksgqtm Vjbhv-0-Iwxsdpjqy PEP Interpretation Triglycerides LDL Cholesterol Direct HDL Cholesterol Free T4 PTH Intact Urine WBC (Auto) Urine Creatinine Salicylates Acetaminophen Crossmatch 03/19/19 03/19/19 03/19/19 04:00 04:00 05:35 WBC 36.5 H RBC Hgb Hct MCV MCH MCHC RDW 15.8 H Plt Count 35 L Lymph % (Auto) Armstrong % (Auto) Eos % (Auto) Lymph # Armstrong # Eos # Seg Neutrophils % Seg Neuts % (Manual) Lymphocytes % (Manual) Monocytes % (Manual) Nucleated RBC % Seg Neutrophils # Seg Neutrophils # Man Lymphocytes # (Manual) Monocytes # (Manual) PT INR D-Dimer Heparin Anti-Xa Level POC ABG pH ABG pH 7.265 L POC ABG pCO2 POC ABG pO2 ABG pO2 35.4 L* ABG HCO3 ABG O2 Saturation 54.4 L ABG Base Excess -6.7 L ABG Hemoglobin 12.9 L Oxyhemoglobin 53.4 L Sodium 132 L Potassium 5.7 H Chloride 89.8 L Carbon Dioxide 19 L BUN 62 H Creatinine 6.4 H Glucose 151 H POC Glucose Lactic Acid Calcium 5.2 L* D Ionized Calcium Phosphorus Magnesium Iron TIBC Ferritin Total Bilirubin 7.80 H Direct Bilirubin AST 682 H ALT 130 H Alkaline Phosphatase 167 H Total Creatine Kinase CK-MB (CK-2) Troponin T C-Reactive Protein Serum Total Protein Total Protein 4.8 L Albumin 2.3 L Olqit-4-Meccckwsc Qqjuc-9-Igpmxspqg PEP Interpretation Triglycerides LDL Cholesterol Direct HDL Cholesterol Free T4 PTH Intact Urine WBC (Auto) Urine Creatinine Salicylates Acetaminophen Crossmatch 03/19/19 03/19/19 03/19/19 05:49 09:16 09:50 WBC RBC Hgb Hct MCV MCH MCHC RDW Plt Count Lymph % (Auto) Armstrong % (Auto) Eos % (Auto) Lymph # Armstrong # Eos # Seg Neutrophils % Seg Neuts % (Manual) Lymphocytes % (Manual) Monocytes % (Manual) Nucleated RBC % Seg Neutrophils # Seg Neutrophils # Man Lymphocytes # (Manual) Monocytes # (Manual) PT INR D-Dimer Heparin Anti-Xa Level POC ABG pH 7.222 L ABG pH POC ABG pCO2 56.6 H POC ABG pO2 ABG pO2 ABG HCO3 ABG O2 Saturation ABG Base Excess ABG Hemoglobin Oxyhemoglobin Sodium Potassium Chloride Carbon Dioxide BUN Creatinine Glucose POC Glucose 154 H Lactic Acid 2.70 H* Calcium Ionized Calcium Phosphorus Magnesium Iron TIBC Ferritin Total Bilirubin Direct Bilirubin AST ALT Alkaline Phosphatase Total Creatine Kinase CK-MB (CK-2) Troponin T C-Reactive Protein Serum Total Protein Total Protein Albumin Vdewn-6-Bcchresxr Wlkbo-8-Oogglgiwu PEP Interpretation Triglycerides LDL Cholesterol Direct HDL Cholesterol Free T4 PTH Intact Urine WBC (Auto) Urine Creatinine Salicylates Acetaminophen Crossmatch 03/19/19 03/19/19 03/19/19 09:50 11:28 17:58 WBC RBC Hgb Hct MCV MCH MCHC RDW Plt Count Lymph % (Auto) Armstrong % (Auto) Eos % (Auto) Lymph # Armstrong # Eos # Seg Neutrophils % Seg Neuts % (Manual) Lymphocytes % (Manual) Monocytes % (Manual) Nucleated RBC % Seg Neutrophils # Seg Neutrophils # Man Lymphocytes # (Manual) Monocytes # (Manual) PT INR D-Dimer Heparin Anti-Xa Level POC ABG pH 7.250 L ABG pH POC ABG pCO2 52.6 H POC ABG pO2 ABG pO2 ABG HCO3 ABG O2 Saturation ABG Base Excess ABG Hemoglobin Oxyhemoglobin Sodium Potassium Chloride Carbon Dioxide BUN Creatinine Glucose POC Glucose 160 H Lactic Acid Calcium Ionized Calcium Phosphorus Magnesium Iron TIBC Ferritin Total Bilirubin Direct Bilirubin AST ALT Alkaline Phosphatase Total Creatine Kinase 93587 H CK-MB (CK-2) Troponin T C-Reactive Protein Serum Total Protein Total Protein Albumin Vnvfj-9-Dkwphjdbl Jvjbf-6-Vcwrfewxi PEP Interpretation Triglycerides LDL Cholesterol Direct HDL Cholesterol Free T4 PTH Intact Urine WBC (Auto) Urine Creatinine Salicylates Acetaminophen Crossmatch 03/19/19 03/19/19 03/20/19 19:48 21:03 02:16 WBC RBC Hgb Hct MCV MCH MCHC RDW Plt Count Lymph % (Auto) Armstrong % (Auto) Eos % (Auto) Lymph # Armstrong # Eos # Seg Neutrophils % Seg Neuts % (Manual) Lymphocytes % (Manual) Monocytes % (Manual) Nucleated RBC % Seg Neutrophils # Seg Neutrophils # Man Lymphocytes # (Manual) Monocytes # (Manual) PT INR D-Dimer Heparin Anti-Xa Level POC ABG pH 7.279 L ABG pH POC ABG pCO2 50.3 H POC ABG pO2 129 H ABG pO2 ABG HCO3 ABG O2 Saturation ABG Base Excess ABG Hemoglobin Oxyhemoglobin Sodium Potassium Chloride Carbon Dioxide BUN Creatinine Glucose POC Glucose 119 H 119 H Lactic Acid Calcium Ionized Calcium Phosphorus Magnesium Iron TIBC Ferritin Total Bilirubin Direct Bilirubin AST ALT Alkaline Phosphatase Total Creatine Kinase CK-MB (CK-2) Troponin T C-Reactive Protein Serum Total Protein Total Protein Albumin Ftzqa-8-Gdvafjugf Ydxhg-8-Kilgrzmne PEP Interpretation Triglycerides LDL Cholesterol Direct HDL Cholesterol Free T4 PTH Intact Urine WBC (Auto) Urine Creatinine Salicylates Acetaminophen Crossmatch 03/20/19 03/20/19 03/20/19 04:23 05:05 09:30 WBC 36.3 H RBC Hgb Hct MCV MCH MCHC RDW 15.5 H Plt Count 29 L Lymph % (Auto) Armstrong % (Auto) Eos % (Auto) Lymph # Armstrong # Eos # Seg Neutrophils % Seg Neuts % (Manual) Lymphocytes % (Manual) Monocytes % (Manual) Nucleated RBC % Seg Neutrophils # Seg Neutrophils # Man Lymphocytes # (Manual) Monocytes # (Manual) PT INR D-Dimer Heparin Anti-Xa Level POC ABG pH ABG pH POC ABG pCO2 POC ABG pO2 280 H ABG pO2 ABG HCO3 ABG O2 Saturation ABG Base Excess ABG Hemoglobin Oxyhemoglobin Sodium Potassium Chloride Carbon Dioxide BUN Creatinine Glucose POC Glucose 115 H Lactic Acid Calcium Ionized Calcium Phosphorus Magnesium Iron TIBC Ferritin Total Bilirubin Direct Bilirubin AST ALT Alkaline Phosphatase Total Creatine Kinase CK-MB (CK-2) Troponin T C-Reactive Protein Serum Total Protein Total Protein Albumin Ntiox-0-Lxkwglokm Kthla-9-Gvgceuidg PEP Interpretation Triglycerides LDL Cholesterol Direct HDL Cholesterol Free T4 PTH Intact Urine WBC (Auto) Urine Creatinine Salicylates Acetaminophen Crossmatch 03/20/19 03/20/19 03/20/19 09:30 09:30 11:34 WBC RBC Hgb Hct MCV MCH MCHC RDW Plt Count Lymph % (Auto) Armstrong % (Auto) Eos % (Auto) Lymph # Armstrong # Eos # Seg Neutrophils % Seg Neuts % (Manual) Lymphocytes % (Manual) Monocytes % (Manual) Nucleated RBC % Seg Neutrophils # Seg Neutrophils # Man Lymphocytes # (Manual) Monocytes # (Manual) PT INR D-Dimer Heparin Anti-Xa Level POC ABG pH ABG pH POC ABG pCO2 POC ABG pO2 ABG pO2 ABG HCO3 ABG O2 Saturation ABG Base Excess ABG Hemoglobin Oxyhemoglobin Sodium 131 L Potassium Chloride 92.3 L Carbon Dioxide 20 L BUN 68 H Creatinine 6.1 H Glucose 164 H POC Glucose 141 H Lactic Acid Calcium 5.3 L* Ionized Calcium Phosphorus Magnesium Iron TIBC Ferritin Total Bilirubin 9.50 H Direct Bilirubin AST 381 H ALT 116 H Alkaline Phosphatase 255 H Total Creatine Kinase 19743 H CK-MB (CK-2) Troponin T C-Reactive Protein Serum Total Protein Total Protein 5.1 L Albumin 2.3 L Kvtyh-8-Ppcxkxtja Zmxmk-4-Spkliymul PEP Interpretation Triglycerides LDL Cholesterol Direct HDL Cholesterol Free T4 PTH Intact Urine WBC (Auto) Urine Creatinine Salicylates Acetaminophen Crossmatch 03/20/19 03/20/19 03/20/19 14:41 14:45 18:50 WBC RBC Hgb Hct MCV MCH MCHC RDW Plt Count Lymph % (Auto) Armstrong % (Auto) Eos % (Auto) Lymph # Armstrong # Eos # Seg Neutrophils % Seg Neuts % (Manual) Lymphocytes % (Manual) Monocytes % (Manual) Nucleated RBC % Seg Neutrophils # Seg Neutrophils # Man Lymphocytes # (Manual) Monocytes # (Manual) PT INR D-Dimer Heparin Anti-Xa Level POC ABG pH ABG pH POC ABG pCO2 POC ABG pO2 ABG pO2 ABG HCO3 ABG O2 Saturation ABG Base Excess ABG Hemoglobin Oxyhemoglobin Sodium Potassium Chloride Carbon Dioxide BUN Creatinine Glucose POC Glucose 117 H Lactic Acid 2.90 H* Calcium Ionized Calcium Phosphorus Magnesium Iron TIBC Ferritin Total Bilirubin Direct Bilirubin AST ALT Alkaline Phosphatase Total Creatine Kinase CK-MB (CK-2) Troponin T C-Reactive Protein 13.30 H Serum Total Protein Total Protein Albumin Qmyhx-4-Lcmlbhhlx Qexal-5-Jpghmizwm PEP Interpretation Triglycerides LDL Cholesterol Direct HDL Cholesterol Free T4 PTH Intact Urine WBC (Auto) Urine Creatinine Salicylates Acetaminophen Crossmatch 03/20/19 03/21/19 03/21/19 21:55 04:26 04:26 WBC 37.8 H RBC Hgb Hct MCV MCH MCHC RDW 15.4 H Plt Count 36 L Lymph % (Auto) Armstrong % (Auto) Eos % (Auto) Lymph # Armstrong # Eos # Seg Neutrophils % Seg Neuts % (Manual) 93.0 H Lymphocytes % (Manual) 3.0 L Monocytes % (Manual) Nucleated RBC % 1.0 H Seg Neutrophils # 34.6 H Seg Neutrophils # Man 35.2 H Lymphocytes # (Manual) 1.1 L Monocytes # (Manual) PT INR D-Dimer Heparin Anti-Xa Level POC ABG pH ABG pH POC ABG pCO2 POC ABG pO2 ABG pO2 ABG HCO3 ABG O2 Saturation ABG Base Excess ABG Hemoglobin Oxyhemoglobin Sodium 131 L Potassium Chloride 90.7 L Carbon Dioxide 21 L BUN 69 H Creatinine 5.7 H Glucose 170 H POC Glucose 128 H Lactic Acid Calcium 6.1 L D Ionized Calcium Phosphorus Magnesium Iron TIBC Ferritin Total Bilirubin 9.50 H Direct Bilirubin AST 308 H ALT 124 H Alkaline Phosphatase 327 H Total Creatine Kinase 37270 H CK-MB (CK-2) Troponin T C-Reactive Protein Serum Total Protein Total Protein 5.7 L Albumin 2.6 L Eiaqu-7-Ppoiaqaah Vaice-8-Xwumprorp PEP Interpretation Triglycerides LDL Cholesterol Direct HDL Cholesterol Free T4 PTH Intact Urine WBC (Auto) Urine Creatinine Salicylates Acetaminophen Crossmatch 03/21/19 03/21/19 03/21/19 05:17 05:39 08:29 WBC RBC Hgb Hct MCV MCH MCHC RDW Plt Count Lymph % (Auto) Armstrong % (Auto) Eos % (Auto) Lymph # Armstrong # Eos # Seg Neutrophils % Seg Neuts % (Manual) Lymphocytes % (Manual) Monocytes % (Manual) Nucleated RBC % Seg Neutrophils # Seg Neutrophils # Man Lymphocytes # (Manual) Monocytes # (Manual) PT INR D-Dimer Heparin Anti-Xa Level POC ABG pH ABG pH POC ABG pCO2 POC ABG pO2 209 H ABG pO2 ABG HCO3 ABG O2 Saturation ABG Base Excess ABG Hemoglobin Oxyhemoglobin Sodium Potassium Chloride Carbon Dioxide BUN Creatinine Glucose POC Glucose 145 H Lactic Acid Calcium Ionized Calcium Phosphorus Magnesium Iron TIBC Ferritin Total Bilirubin Direct Bilirubin AST ALT Alkaline Phosphatase Total Creatine Kinase 15766 H CK-MB (CK-2) Troponin T C-Reactive Protein Serum Total Protein Total Protein Albumin Hftfx-1-Afqjzxhyi Zfhyl-4-Vwtqlexmf PEP Interpretation Triglycerides LDL Cholesterol Direct HDL Cholesterol Free T4 PTH Intact Urine WBC (Auto) Urine Creatinine Salicylates Acetaminophen Crossmatch 03/21/19 03/21/19 03/21/19 08:29 11:43 12:00 WBC RBC Hgb Hct MCV MCH MCHC RDW Plt Count Lymph % (Auto) Armstrong % (Auto) Eos % (Auto) Lymph # Armstrong # Eos # Seg Neutrophils % Seg Neuts % (Manual) Lymphocytes % (Manual) Monocytes % (Manual) Nucleated RBC % Seg Neutrophils # Seg Neutrophils # Man Lymphocytes # (Manual) Monocytes # (Manual) PT INR D-Dimer Heparin Anti-Xa Level POC ABG pH ABG pH POC ABG pCO2 POC ABG pO2 ABG pO2 ABG HCO3 ABG O2 Saturation ABG Base Excess ABG Hemoglobin Oxyhemoglobin Sodium Potassium Chloride Carbon Dioxide BUN Creatinine Glucose POC Glucose 123 H Lactic Acid 2.60 H* 2.20 H* Calcium Ionized Calcium Phosphorus Magnesium Iron TIBC Ferritin Total Bilirubin Direct Bilirubin AST ALT Alkaline Phosphatase Total Creatine Kinase CK-MB (CK-2) Troponin T C-Reactive Protein Serum Total Protein Total Protein Albumin Fboho-9-Crrcbjhep Nntfm-1-Sqrehxgvh PEP Interpretation Triglycerides LDL Cholesterol Direct HDL Cholesterol Free T4 PTH Intact Urine WBC (Auto) Urine Creatinine Salicylates Acetaminophen Crossmatch 03/21/19 03/21/19 03/21/19 14:11 18:28 19:32 WBC RBC Hgb Hct MCV MCH MCHC RDW Plt Count Lymph % (Auto) Armstrong % (Auto) Eos % (Auto) Lymph # Armstrong # Eos # Seg Neutrophils % Seg Neuts % (Manual) Lymphocytes % (Manual) Monocytes % (Manual) Nucleated RBC % Seg Neutrophils # Seg Neutrophils # Man Lymphocytes # (Manual) Monocytes # (Manual) PT INR D-Dimer Heparin Anti-Xa Level POC ABG pH 7.293 L ABG pH POC ABG pCO2 POC ABG pO2 ABG pO2 ABG HCO3 ABG O2 Saturation ABG Base Excess ABG Hemoglobin Oxyhemoglobin Sodium Potassium Chloride Carbon Dioxide BUN Creatinine Glucose POC Glucose 153 H Lactic Acid 2.10 H* Calcium Ionized Calcium Phosphorus Magnesium Iron TIBC Ferritin Total Bilirubin Direct Bilirubin AST ALT Alkaline Phosphatase Total Creatine Kinase CK-MB (CK-2) Troponin T C-Reactive Protein Serum Total Protein Total Protein Albumin Qvxel-6-Qsbepmnrt Djiot-3-Hayxrfvzj PEP Interpretation Triglycerides LDL Cholesterol Direct HDL Cholesterol Free T4 PTH Intact Urine WBC (Auto) Urine Creatinine Salicylates Acetaminophen Crossmatch 03/21/19 03/22/19 03/22/19 23:38 05:08 05:51 WBC RBC Hgb Hct MCV MCH MCHC RDW Plt Count Lymph % (Auto) Armstrong % (Auto) Eos % (Auto) Lymph # Armstrong # Eos # Seg Neutrophils % Seg Neuts % (Manual) Lymphocytes % (Manual) Monocytes % (Manual) Nucleated RBC % Seg Neutrophils # Seg Neutrophils # Man Lymphocytes # (Manual) Monocytes # (Manual) PT INR D-Dimer Heparin Anti-Xa Level POC ABG pH 7.283 L ABG pH POC ABG pCO2 POC ABG pO2 53 L ABG pO2 ABG HCO3 ABG O2 Saturation ABG Base Excess ABG Hemoglobin Oxyhemoglobin Sodium Potassium Chloride Carbon Dioxide BUN Creatinine Glucose POC Glucose 149 H 131 H Lactic Acid Calcium Ionized Calcium Phosphorus Magnesium Iron TIBC Ferritin Total Bilirubin Direct Bilirubin AST ALT Alkaline Phosphatase Total Creatine Kinase CK-MB (CK-2) Troponin T C-Reactive Protein Serum Total Protein Total Protein Albumin Rsexm-3-Luzwqnoph Znebz-5-Otzsrride PEP Interpretation Triglycerides LDL Cholesterol Direct HDL Cholesterol Free T4 PTH Intact Urine WBC (Auto) Urine Creatinine Salicylates Acetaminophen Crossmatch 03/22/19 03/22/19 03/22/19 08:00 08:00 18:19 WBC 36.7 H RBC Hgb 11.0 L Hct 33.5 L MCV MCH MCHC RDW 15.5 H Plt Count 43 L Lymph % (Auto) Armstrong % (Auto) Eos % (Auto) Lymph # Armstrong # Eos # Seg Neutrophils % Seg Neuts % (Manual) 87.0 H Lymphocytes % (Manual) 7.0 L Monocytes % (Manual) Nucleated RBC % Seg Neutrophils # Seg Neutrophils # Man 31.9 H Lymphocytes # (Manual) Monocytes # (Manual) PT INR D-Dimer Heparin Anti-Xa Level POC ABG pH ABG pH POC ABG pCO2 46.4 H POC ABG pO2 108 H ABG pO2 ABG HCO3 ABG O2 Saturation ABG Base Excess ABG Hemoglobin Oxyhemoglobin Sodium 132 L Potassium 5.6 H Chloride 89.6 L Carbon Dioxide 20 L BUN 101 H Creatinine 7.4 H Glucose 124 H POC Glucose Lactic Acid Calcium 5.2 L* Ionized Calcium Phosphorus Magnesium Iron TIBC Ferritin Total Bilirubin 2.80 H Direct Bilirubin AST 119 H ALT 86 H Alkaline Phosphatase 245 H Total Creatine Kinase CK-MB (CK-2) Troponin T C-Reactive Protein Serum Total Protein Total Protein 5.6 L Albumin 2.5 L Xptlb-8-Ejfedcavf Zlece-4-Zvzuzdtix PEP Interpretation Triglycerides LDL Cholesterol Direct HDL Cholesterol Free T4 PTH Intact Urine WBC (Auto) Urine Creatinine Salicylates Acetaminophen Crossmatch 03/22/19 03/23/19 03/23/19 20:37 04:49 05:28 WBC 35.9 H RBC Hgb 10.8 L Hct 33.2 L MCV MCH MCHC RDW 15.5 H Plt Count 49 L Lymph % (Auto) Armstrong % (Auto) Eos % (Auto) Lymph # Armstrong # Eos # Seg Neutrophils % Seg Neuts % (Manual) 81.0 H Lymphocytes % (Manual) 3.5 L Monocytes % (Manual) Nucleated RBC % Seg Neutrophils # Seg Neutrophils # Man 29.1 H Lymphocytes # (Manual) Monocytes # (Manual) 1.4 H PT INR D-Dimer Heparin Anti-Xa Level POC ABG pH 7.296 L ABG pH POC ABG pCO2 46.2 H POC ABG pO2 ABG pO2 ABG HCO3 ABG O2 Saturation ABG Base Excess ABG Hemoglobin Oxyhemoglobin Sodium 129 L Potassium 5.2 H Chloride 91.1 L Carbon Dioxide BUN 91 H Creatinine 6.6 H Glucose 190 H POC Glucose Lactic Acid Calcium 5.3 L* Ionized Calcium Phosphorus Magnesium Iron TIBC Ferritin Total Bilirubin 1.80 H Direct Bilirubin AST 80 H ALT 62 H Alkaline Phosphatase 209 H Total Creatine Kinase 9758 H CK-MB (CK-2) Troponin T C-Reactive Protein Serum Total Protein Total Protein 5.2 L Albumin 2.2 L Metld-9-Enzwhajvy Olcqx-7-Xuhicvatz PEP Interpretation Triglycerides LDL Cholesterol Direct HDL Cholesterol Free T4 PTH Intact Urine WBC (Auto) Urine Creatinine Salicylates Acetaminophen Crossmatch 03/23/19 03/23/19 03/23/19 05:28 05:31 11:33 WBC 29.7 H RBC 3.59 L Hgb 10.1 L Hct 31.1 L MCV MCH MCHC RDW 15.4 H Plt Count 47 L Lymph % (Auto) Armstrong % (Auto) Eos % (Auto) Lymph # Armstrong # Eos # Seg Neutrophils % Seg Neuts % (Manual) 89.0 H Lymphocytes % (Manual) 6.0 L Monocytes % (Manual) Nucleated RBC % 1.0 H Seg Neutrophils # Seg Neutrophils # Man 26.4 H Lymphocytes # (Manual) Monocytes # (Manual) PT INR D-Dimer Heparin Anti-Xa Level POC ABG pH ABG pH POC ABG pCO2 POC ABG pO2 ABG pO2 ABG HCO3 ABG O2 Saturation ABG Base Excess ABG Hemoglobin Oxyhemoglobin Sodium Potassium Chloride Carbon Dioxide BUN Creatinine Glucose POC Glucose 122 H 113 H Lactic Acid Calcium Ionized Calcium Phosphorus Magnesium Iron TIBC Ferritin Total Bilirubin Direct Bilirubin AST ALT Alkaline Phosphatase Total Creatine Kinase CK-MB (CK-2) Troponin T C-Reactive Protein Serum Total Protein Total Protein Albumin Bjgvj-4-Zlhbcistu Yqqek-8-Nnzaphxgj PEP Interpretation Triglycerides LDL Cholesterol Direct HDL Cholesterol Free T4 PTH Intact Urine WBC (Auto) Urine Creatinine Salicylates Acetaminophen Crossmatch 03/23/19 03/24/19 03/24/19 17:47 00:00 04:50 WBC 35.0 H RBC Hgb 10.4 L Hct 32.4 L MCV MCH MCHC RDW Plt Count 60 L Lymph % (Auto) Armstrong % (Auto) Eos % (Auto) Lymph # Armstrong # Eos # Seg Neutrophils % Seg Neuts % (Manual) 93.0 H Lymphocytes % (Manual) 5.0 L Monocytes % (Manual) Nucleated RBC % 7.0 H Seg Neutrophils # Seg Neutrophils # Man 32.6 H Lymphocytes # (Manual) Monocytes # (Manual) PT INR D-Dimer Heparin Anti-Xa Level POC ABG pH ABG pH POC ABG pCO2 POC ABG pO2 ABG pO2 ABG HCO3 ABG O2 Saturation ABG Base Excess ABG Hemoglobin Oxyhemoglobin Sodium Potassium Chloride Carbon Dioxide BUN Creatinine Glucose POC Glucose 111 H 108 H Lactic Acid Calcium Ionized Calcium Phosphorus Magnesium Iron TIBC Ferritin Total Bilirubin Direct Bilirubin AST ALT Alkaline Phosphatase Total Creatine Kinase CK-MB (CK-2) Troponin T C-Reactive Protein Serum Total Protein Total Protein Albumin Wllzd-7-Fvfgbbwlt Sbzez-4-Qibiogmfw PEP Interpretation Triglycerides LDL Cholesterol Direct HDL Cholesterol Free T4 PTH Intact Urine WBC (Auto) Urine Creatinine Salicylates Acetaminophen Crossmatch 03/24/19 03/24/19 03/24/19 04:50 05:06 12:55 WBC RBC Hgb Hct MCV MCH MCHC RDW Plt Count Lymph % (Auto) Armstrong % (Auto) Eos % (Auto) Lymph # Armstrong # Eos # Seg Neutrophils % Seg Neuts % (Manual) Lymphocytes % (Manual) Monocytes % (Manual) Nucleated RBC % Seg Neutrophils # Seg Neutrophils # Man Lymphocytes # (Manual) Monocytes # (Manual) PT INR D-Dimer Heparin Anti-Xa Level POC ABG pH ABG pH POC ABG pCO2 POC ABG pO2 ABG pO2 ABG HCO3 ABG O2 Saturation ABG Base Excess ABG Hemoglobin Oxyhemoglobin Sodium 134 L Potassium 5.1 H Chloride 95.3 L Carbon Dioxide 21 L BUN 85 H Creatinine 6.4 H Glucose 109 H POC Glucose 112 H 110 H Lactic Acid Calcium 5.8 L* Ionized Calcium Phosphorus Magnesium Iron TIBC Ferritin Total Bilirubin Direct Bilirubin AST ALT Alkaline Phosphatase Total Creatine Kinase 5747 H CK-MB (CK-2) Troponin T C-Reactive Protein Serum Total Protein Total Protein Albumin Uopjf-2-Zyczqyvmw Cgjoo-4-Zcgkbircy PEP Interpretation Triglycerides LDL Cholesterol Direct HDL Cholesterol Free T4 PTH Intact Urine WBC (Auto) Urine Creatinine Salicylates Acetaminophen Crossmatch 03/24/19 03/25/19 03/25/19 23:29 05:00 05:00 WBC RBC Hgb Hct MCV MCH MCHC RDW Plt Count Lymph % (Auto) Armstrong % (Auto) Eos % (Auto) Lymph # Armstrong # Eos # Seg Neutrophils % Seg Neuts % (Manual) Lymphocytes % (Manual) Monocytes % (Manual) Nucleated RBC % Seg Neutrophils # Seg Neutrophils # Man Lymphocytes # (Manual) Monocytes # (Manual) PT INR D-Dimer Heparin Anti-Xa Level POC ABG pH ABG pH POC ABG pCO2 POC ABG pO2 ABG pO2 ABG HCO3 ABG O2 Saturation ABG Base Excess ABG Hemoglobin Oxyhemoglobin Sodium 133 L Potassium Chloride 94.0 L Carbon Dioxide 21 L BUN 81 H Creatinine 6.4 H Glucose POC Glucose 109 H Lactic Acid Calcium 5.5 L* Ionized Calcium Phosphorus Magnesium Iron TIBC Ferritin Total Bilirubin Direct Bilirubin AST 80 H ALT Alkaline Phosphatase 202 H Total Creatine Kinase 3589 H CK-MB (CK-2) Troponin T C-Reactive Protein Serum Total Protein Total Protein 5.3 L Albumin 2.4 L Agqkm-8-Ojxzmgtrz Odelu-0-Pvqyeprlz PEP Interpretation Triglycerides LDL Cholesterol Direct HDL Cholesterol Free T4 PTH Intact 329.9 H Urine WBC (Auto) Urine Creatinine Salicylates Acetaminophen Crossmatch 03/25/19 03/25/19 03/26/19 05:00 06:30 04:30 WBC 23.3 H RBC 3.61 L Hgb 10.2 L Hct 31.2 L MCV MCH MCHC RDW Plt Count 57 L Lymph % (Auto) Armstrong % (Auto) Eos % (Auto) Lymph # Armstrong # Eos # Seg Neutrophils % Seg Neuts % (Manual) 92.0 H Lymphocytes % (Manual) 6.0 L Monocytes % (Manual) Nucleated RBC % Seg Neutrophils # Seg Neutrophils # Man 21.4 H Lymphocytes # (Manual) Monocytes # (Manual) PT INR D-Dimer Heparin Anti-Xa Level POC ABG pH ABG pH 7.326 L POC ABG pCO2 POC ABG pO2 ABG pO2 109.5 H 137.4 H ABG HCO3 18.8 L 18.6 L ABG O2 Saturation ABG Base Excess -4.4 L -6.8 L ABG Hemoglobin 10.1 L 9.9 L Oxyhemoglobin Sodium Potassium Chloride Carbon Dioxide BUN Creatinine Glucose POC Glucose Lactic Acid Calcium Ionized Calcium Phosphorus Magnesium Iron TIBC Ferritin Total Bilirubin Direct Bilirubin AST ALT Alkaline Phosphatase Total Creatine Kinase CK-MB (CK-2) Troponin T C-Reactive Protein Serum Total Protein Total Protein Albumin Uiuin-7-Gaylvjipt Bfhkr-7-Vrxowbrrr PEP Interpretation Triglycerides LDL Cholesterol Direct HDL Cholesterol Free T4 PTH Intact Urine WBC (Auto) Urine Creatinine Salicylates Acetaminophen Crossmatch 03/26/19 03/26/19 03/26/19 23:22 Unknown Unknown WBC 19.5 H RBC 3.44 L Hgb 9.8 L Hct 29.9 L MCV MCH MCHC RDW Plt Count 85 L Lymph % (Auto) Armstrong % (Auto) Eos % (Auto) Lymph # Armstrong # Eos # Seg Neutrophils % Seg Neuts % (Manual) 95.0 H Lymphocytes % (Manual) 3.0 L Monocytes % (Manual) Nucleated RBC % Seg Neutrophils # Seg Neutrophils # Man 18.5 H Lymphocytes # (Manual) 0.6 L Monocytes # (Manual) PT INR D-Dimer Heparin Anti-Xa Level POC ABG pH ABG pH POC ABG pCO2 POC ABG pO2 ABG pO2 ABG HCO3 ABG O2 Saturation ABG Base Excess ABG Hemoglobin Oxyhemoglobin Sodium 135 L Potassium 5.2 H D Chloride 92.2 L Carbon Dioxide 18 L BUN 109 H Creatinine 8.5 H Glucose 117 H POC Glucose 69 L Lactic Acid Calcium 4.5 L* D Ionized Calcium Phosphorus Magnesium Iron TIBC Ferritin Total Bilirubin Direct Bilirubin AST ALT Alkaline Phosphatase Total Creatine Kinase 4527 H CK-MB (CK-2) Troponin T C-Reactive Protein Serum Total Protein Total Protein Albumin Rpmzq-7-Wjuexuqpk Fafxk-3-Zomkrqble PEP Interpretation Triglycerides LDL Cholesterol Direct HDL Cholesterol Free T4 PTH Intact Urine WBC (Auto) Urine Creatinine Salicylates Acetaminophen Crossmatch 03/27/19 03/27/19 03/27/19 04:30 04:30 09:00 WBC 19.2 H RBC 3.42 L Hgb 9.9 L Hct 30.0 L MCV MCH MCHC RDW Plt Count 84 L Lymph % (Auto) Armstrong % (Auto) Eos % (Auto) Lymph # Armstrong # Eos # Seg Neutrophils % Seg Neuts % (Manual) Lymphocytes % (Manual) Monocytes % (Manual) Nucleated RBC % Seg Neutrophils # Seg Neutrophils # Man Lymphocytes # (Manual) Monocytes # (Manual) PT INR D-Dimer Heparin Anti-Xa Level POC ABG pH ABG pH POC ABG pCO2 POC ABG pO2 ABG pO2 ABG HCO3 ABG O2 Saturation ABG Base Excess ABG Hemoglobin Oxyhemoglobin Sodium 135 L Potassium Chloride 93.5 L Carbon Dioxide BUN 84 H Creatinine 7.1 H Glucose POC Glucose Lactic Acid Calcium 5.0 L* Ionized Calcium Phosphorus Magnesium Iron TIBC Ferritin Total Bilirubin Direct Bilirubin AST 78 H ALT Alkaline Phosphatase 135 H Total Creatine Kinase 4677 H CK-MB (CK-2) Troponin T C-Reactive Protein Serum Total Protein Total Protein 4.8 L Albumin 2.3 L Ptxtu-2-Gpwmoywyp Hoomk-3-Cxaewhqjr PEP Interpretation Triglycerides 409 H LDL Cholesterol Direct HDL Cholesterol Free T4 PTH Intact Urine WBC (Auto) Urine Creatinine Salicylates Acetaminophen Crossmatch 03/27/19 03/27/19 03/27/19 12:37 14:15 14:15 WBC RBC Hgb 9.7 L Hct 29.5 L MCV MCH MCHC RDW Plt Count 87 L Lymph % (Auto) Armstrong % (Auto) Eos % (Auto) Lymph # Armstrong # Eos # Seg Neutrophils % Seg Neuts % (Manual) Lymphocytes % (Manual) Monocytes % (Manual) Nucleated RBC % Seg Neutrophils # Seg Neutrophils # Man Lymphocytes # (Manual) Monocytes # (Manual) PT 15.9 H INR 1.30 H D-Dimer Heparin Anti-Xa Level POC ABG pH ABG pH POC ABG pCO2 POC ABG pO2 ABG pO2 ABG HCO3 ABG O2 Saturation ABG Base Excess ABG Hemoglobin Oxyhemoglobin Sodium Potassium Chloride Carbon Dioxide BUN Creatinine Glucose POC Glucose 129 H Lactic Acid Calcium Ionized Calcium Phosphorus Magnesium Iron TIBC Ferritin Total Bilirubin Direct Bilirubin AST ALT Alkaline Phosphatase Total Creatine Kinase CK-MB (CK-2) Troponin T C-Reactive Protein Serum Total Protein Total Protein Albumin Mtvzj-4-Fswmnwveb Dqhog-2-Wxajrnktd PEP Interpretation Triglycerides LDL Cholesterol Direct HDL Cholesterol Free T4 PTH Intact Urine WBC (Auto) Urine Creatinine Salicylates Acetaminophen Crossmatch 03/27/19 03/27/19 03/27/19 18:00 19:22 19:23 WBC RBC Hgb Hct MCV MCH MCHC RDW Plt Count Lymph % (Auto) Armstrong % (Auto) Eos % (Auto) Lymph # Armstrong # Eos # Seg Neutrophils % Seg Neuts % (Manual) Lymphocytes % (Manual) Monocytes % (Manual) Nucleated RBC % Seg Neutrophils # Seg Neutrophils # Man Lymphocytes # (Manual) Monocytes # (Manual) PT INR D-Dimer Heparin Anti-Xa Level < 0.10 L POC ABG pH ABG pH POC ABG pCO2 POC ABG pO2 ABG pO2 ABG HCO3 ABG O2 Saturation ABG Base Excess ABG Hemoglobin Oxyhemoglobin Sodium Potassium Chloride Carbon Dioxide BUN Creatinine Glucose POC Glucose 121 H Lactic Acid Calcium Ionized Calcium Phosphorus Magnesium Iron TIBC Ferritin Total Bilirubin Direct Bilirubin AST ALT Alkaline Phosphatase Total Creatine Kinase 4517 H CK-MB (CK-2) Troponin T C-Reactive Protein Serum Total Protein Total Protein Albumin Cdavh-1-Uwsbnmjnv Bjgdp-0-Ifdkaktak PEP Interpretation Triglycerides LDL Cholesterol Direct HDL Cholesterol Free T4 PTH Intact Urine WBC (Auto) Urine Creatinine Salicylates Acetaminophen Crossmatch 03/27/19 03/27/19 03/28/19 22:10 23:52 03:49 WBC RBC Hgb Hct MCV MCH MCHC RDW Plt Count Lymph % (Auto) Armstrong % (Auto) Eos % (Auto) Lymph # Armstrong # Eos # Seg Neutrophils % Seg Neuts % (Manual) Lymphocytes % (Manual) Monocytes % (Manual) Nucleated RBC % Seg Neutrophils # Seg Neutrophils # Man Lymphocytes # (Manual) Monocytes # (Manual) PT INR D-Dimer Heparin Anti-Xa Level POC ABG pH 7.338 L ABG pH POC ABG pCO2 33.1 L POC ABG pO2 ABG pO2 ABG HCO3 ABG O2 Saturation ABG Base Excess ABG Hemoglobin Oxyhemoglobin Sodium Potassium Chloride Carbon Dioxide BUN Creatinine Glucose POC Glucose 113 H 117 H Lactic Acid Calcium Ionized Calcium Phosphorus Magnesium Iron TIBC Ferritin Total Bilirubin Direct Bilirubin AST ALT Alkaline Phosphatase Total Creatine Kinase CK-MB (CK-2) Troponin T C-Reactive Protein Serum Total Protein Total Protein Albumin Ywhko-9-Eiruqoybx Uccsd-9-Abhjhqjca PEP Interpretation Triglycerides LDL Cholesterol Direct HDL Cholesterol Free T4 PTH Intact Urine WBC (Auto) Urine Creatinine Salicylates Acetaminophen Crossmatch 03/28/19 03/28/19 03/28/19 05:13 05:13 06:18 WBC RBC Hgb Hct MCV MCH MCHC RDW Plt Count Lymph % (Auto) Armstrong % (Auto) Eos % (Auto) Lymph # Armstrong # Eos # Seg Neutrophils % Seg Neuts % (Manual) Lymphocytes % (Manual) Monocytes % (Manual) Nucleated RBC % Seg Neutrophils # Seg Neutrophils # Man Lymphocytes # (Manual) Monocytes # (Manual) PT INR D-Dimer Heparin Anti-Xa Level 0.23 L POC ABG pH ABG pH POC ABG pCO2 POC ABG pO2 ABG pO2 ABG HCO3 ABG O2 Saturation ABG Base Excess ABG Hemoglobin Oxyhemoglobin Sodium 135 L Potassium 5.5 H D Chloride 95.1 L Carbon Dioxide 16 L D BUN 129 H Creatinine 9.3 H Glucose 158 H POC Glucose 202 H Lactic Acid Calcium 4.0 L* D Ionized Calcium Phosphorus 12.40 H Magnesium Iron TIBC Ferritin Total Bilirubin Direct Bilirubin AST ALT Alkaline Phosphatase Total Creatine Kinase 4266 H CK-MB (CK-2) Troponin T C-Reactive Protein Serum Total Protein Total Protein Albumin Kayhh-2-Lrgtmvhcq Hndzl-8-Slvjfttpd PEP Interpretation Triglycerides LDL Cholesterol Direct HDL Cholesterol Free T4 PTH Intact Urine WBC (Auto) Urine Creatinine Salicylates Acetaminophen Crossmatch 03/28/19 03/28/19 03/28/19 08:25 10:00 12:00 WBC RBC Hgb 4.9 L* D Hct 15.4 L* D MCV MCH MCHC RDW Plt Count Lymph % (Auto) [place] % (Auto) Eos % (Auto) Lymph # Armstrong # Eos # Seg Neutrophils % Seg Neuts % (Manual) Lymphocytes % (Manual) Monocytes % (Manual) Nucleated RBC % Seg Neutrophils # Seg Neutrophils # Man Lymphocytes # (Manual) Monocytes # (Manual) PT 17.9 H INR 1.52 H D-Dimer 4845.98 H Heparin Anti-Xa Level POC ABG pH ABG pH POC ABG pCO2 POC ABG pO2 ABG pO2 ABG HCO3 ABG O2 Saturation ABG Base Excess ABG Hemoglobin Oxyhemoglobin Sodium Potassium Chloride Carbon Dioxide BUN Creatinine Glucose POC Glucose Lactic Acid Calcium Ionized Calcium Phosphorus Magnesium Iron TIBC Ferritin Total Bilirubin Direct Bilirubin AST ALT Alkaline Phosphatase Total Creatine Kinase CK-MB (CK-2) Troponin T C-Reactive Protein Serum Total Protein Total Protein Albumin Tzoey-6-Knppvmjqt Fulpd-6-Vefppenvg PEP Interpretation Triglycerides LDL Cholesterol Direct HDL Cholesterol Free T4 PTH Intact Urine WBC (Auto) Urine Creatinine Salicylates Acetaminophen Crossmatch See Detail 03/28/19 03/28/19 03/28/19 12:28 14:10 17:43 WBC RBC Hgb 5.9 L* Hct 18.3 L* MCV MCH MCHC RDW Plt Count Lymph % (Auto) Armstrong % (Auto) Eos % (Auto) Lymph # Armstrong # Eos # Seg Neutrophils % Seg Neuts % (Manual) Lymphocytes % (Manual) Monocytes % (Manual) Nucleated RBC % Seg Neutrophils # Seg Neutrophils # Man Lymphocytes # (Manual) Monocytes # (Manual) PT INR D-Dimer Heparin Anti-Xa Level POC ABG pH ABG pH POC ABG pCO2 POC ABG pO2 ABG pO2 ABG HCO3 ABG O2 Saturation ABG Base Excess ABG Hemoglobin Oxyhemoglobin Sodium Potassium Chloride Carbon Dioxide BUN Creatinine Glucose POC Glucose 153 H 159 H Lactic Acid Calcium Ionized Calcium Phosphorus Magnesium Iron TIBC Ferritin Total Bilirubin Direct Bilirubin AST ALT Alkaline Phosphatase Total Creatine Kinase CK-MB (CK-2) Troponin T C-Reactive Protein Serum Total Protein Total Protein Albumin Bviyx-0-Rschafwzl Musqp-3-Uujzmrwbp PEP Interpretation Triglycerides LDL Cholesterol Direct HDL Cholesterol Free T4 PTH Intact Urine WBC (Auto) Urine Creatinine Salicylates Acetaminophen Crossmatch 03/28/19 03/28/19 03/28/19 18:10 Unknown 23:59 WBC 24.8 H RBC 3.42 L Hgb 10.2 L D Hct 31.1 L D MCV MCH MCHC RDW 15.4 H Plt Count 54 L Lymph % (Auto) Armstrong % (Auto) Eos % (Auto) Lymph # Armstrong # Eos # Seg Neutrophils % Seg Neuts % (Manual) 91.0 H Lymphocytes % (Manual) 8.0 L Monocytes % (Manual) Nucleated RBC % Seg Neutrophils # Seg Neutrophils # Man 22.6 H Lymphocytes # (Manual) Monocytes # (Manual) PT INR D-Dimer Heparin Anti-Xa Level POC ABG pH ABG pH POC ABG pCO2 POC ABG pO2 ABG pO2 ABG HCO3 ABG O2 Saturation ABG Base Excess ABG Hemoglobin Oxyhemoglobin Sodium Potassium 5.7 H Chloride Carbon Dioxide BUN Creatinine Glucose POC Glucose 107 H Lactic Acid Calcium Ionized Calcium Phosphorus Magnesium Iron TIBC Ferritin Total Bilirubin Direct Bilirubin AST ALT Alkaline Phosphatase Total Creatine Kinase CK-MB (CK-2) Troponin T C-Reactive Protein Serum Total Protein Total Protein Albumin Mrusv-5-Aftridtae Dgwsk-0-Jurbarijh PEP Interpretation Triglycerides LDL Cholesterol Direct HDL Cholesterol Free T4 PTH Intact Urine WBC (Auto) Urine Creatinine Salicylates Acetaminophen Crossmatch 03/29/19 03/29/19 03/29/19 04:29 05:46 06:22 WBC RBC Hgb 8.6 L Hct 25.7 L MCV MCH MCHC RDW Plt Count 93 L Lymph % (Auto) Armstrong % (Auto) Eos % (Auto) Lymph # Armstrong # Eos # Seg Neutrophils % Seg Neuts % (Manual) Lymphocytes % (Manual) Monocytes % (Manual) Nucleated RBC % Seg Neutrophils # Seg Neutrophils # Man Lymphocytes # (Manual) Monocytes # (Manual) PT INR D-Dimer Heparin Anti-Xa Level POC ABG pH ABG pH POC ABG pCO2 32.2 L POC ABG pO2 ABG pO2 ABG HCO3 ABG O2 Saturation ABG Base Excess ABG Hemoglobin Oxyhemoglobin Sodium Potassium Chloride Carbon Dioxide BUN Creatinine Glucose POC Glucose 113 H Lactic Acid Calcium Ionized Calcium Phosphorus Magnesium Iron TIBC Ferritin Total Bilirubin Direct Bilirubin AST ALT Alkaline Phosphatase Total Creatine Kinase CK-MB (CK-2) Troponin T C-Reactive Protein Serum Total Protein Total Protein Albumin Ztzmh-8-Hbaoyarik Gwtci-7-Ufozscovk PEP Interpretation Triglycerides LDL Cholesterol Direct HDL Cholesterol Free T4 PTH Intact Urine WBC (Auto) Urine Creatinine Salicylates Acetaminophen Crossmatch 03/29/19 03/29/19 03/29/19 06:22 06:22 06:22 WBC 23.2 H RBC 2.91 L Hgb 8.6 L Hct 25.8 L MCV MCH MCHC RDW Plt Count 91 L Lymph % (Auto) Armstrong % (Auto) Eos % (Auto) Lymph # Armstrong # Eos # Seg Neutrophils % Seg Neuts % (Manual) Lymphocytes % (Manual) Monocytes % (Manual) Nucleated RBC % Seg Neutrophils # Seg Neutrophils # Man Lymphocytes # (Manual) Monocytes # (Manual) PT INR D-Dimer Heparin Anti-Xa Level POC ABG pH ABG pH POC ABG pCO2 POC ABG pO2 ABG pO2 ABG HCO3 ABG O2 Saturation ABG Base Excess ABG Hemoglobin Oxyhemoglobin Sodium 133 L Potassium Chloride 93.8 L Carbon Dioxide 18 L BUN 109 H Creatinine 7.4 H Glucose 124 H POC Glucose Lactic Acid Calcium 4.6 L* Ionized Calcium Phosphorus Magnesium Iron TIBC Ferritin Total Bilirubin Direct Bilirubin AST ALT Alkaline Phosphatase Total Creatine Kinase 3401 H CK-MB (CK-2) Troponin T C-Reactive Protein Serum Total Protein Total Protein Albumin Lmrvy-2-Veqitdwfp Npqka-7-Kavtbdddt PEP Interpretation Triglycerides 309 H LDL Cholesterol Direct HDL Cholesterol Free T4 PTH Intact Urine WBC (Auto) Urine Creatinine Salicylates Acetaminophen Crossmatch 03/29/19 03/29/19 03/29/19 11:48 11:48 18:24 WBC RBC Hgb 7.8 L Hct 23.2 L MCV MCH MCHC RDW Plt Count Lymph % (Auto) Armstrong % (Auto) Eos % (Auto) Lymph # Armstrong # Eos # Seg Neutrophils % Seg Neuts % (Manual) Lymphocytes % (Manual) Monocytes % (Manual) Nucleated RBC % Seg Neutrophils # Seg Neutrophils # Man Lymphocytes # (Manual) Monocytes # (Manual) PT 15.3 H INR 1.24 H D-Dimer Heparin Anti-Xa Level POC ABG pH ABG pH POC ABG pCO2 POC ABG pO2 ABG pO2 ABG HCO3 ABG O2 Saturation ABG Base Excess ABG Hemoglobin Oxyhemoglobin Sodium Potassium Chloride Carbon Dioxide BUN Creatinine Glucose POC Glucose 122 H Lactic Acid Calcium Ionized Calcium Phosphorus Magnesium Iron TIBC Ferritin Total Bilirubin Direct Bilirubin AST ALT Alkaline Phosphatase Total Creatine Kinase CK-MB (CK-2) Troponin T C-Reactive Protein Serum Total Protein Total Protein Albumin Zdpgj-5-Vatlfonfg Lovwf-9-Tglhqbudr PEP Interpretation Triglycerides LDL Cholesterol Direct HDL Cholesterol Free T4 PTH Intact Urine WBC (Auto) Urine Creatinine Salicylates Acetaminophen Crossmatch 03/30/19 03/30/19 03/30/19 00:40 04:31 05:04 WBC RBC Hgb 7.6 L Hct 23.0 L MCV MCH MCHC RDW Plt Count Lymph % (Auto) Armstrong % (Auto) Eos % (Auto) Lymph # Armstrong # Eos # Seg Neutrophils % Seg Neuts % (Manual) Lymphocytes % (Manual) Monocytes % (Manual) Nucleated RBC % Seg Neutrophils # Seg Neutrophils # Man Lymphocytes # (Manual) Monocytes # (Manual) PT INR D-Dimer Heparin Anti-Xa Level POC ABG pH 7.346 L ABG pH POC ABG pCO2 POC ABG pO2 62 L ABG pO2 ABG HCO3 ABG O2 Saturation ABG Base Excess ABG Hemoglobin Oxyhemoglobin Sodium Potassium Chloride Carbon Dioxide BUN 79 H Creatinine 6.4 H Glucose POC Glucose Lactic Acid Calcium 6.1 L D Ionized Calcium Phosphorus Magnesium Iron TIBC Ferritin Total Bilirubin Direct Bilirubin AST ALT Alkaline Phosphatase Total Creatine Kinase CK-MB (CK-2) Troponin T C-Reactive Protein Serum Total Protein Total Protein Albumin Zjaxj-5-Pfnldliat Fmdnk-0-Zldakpgcf PEP Interpretation Triglycerides LDL Cholesterol Direct HDL Cholesterol Free T4 PTH Intact Urine WBC (Auto) Urine Creatinine Salicylates Acetaminophen Crossmatch 03/30/19 03/30/19 03/30/19 08:45 12:09 22:43 WBC 14.3 H RBC 2.33 L Hgb 7.0 L 7.4 L Hct 21.0 L 22.3 L MCV MCH MCHC RDW 15.6 H Plt Count 135 L Lymph % (Auto) Armstrong % (Auto) Eos % (Auto) Lymph # Armstrong # Eos # Seg Neutrophils % Seg Neuts % (Manual) Lymphocytes % (Manual) Monocytes % (Manual) Nucleated RBC % Seg Neutrophils # Seg Neutrophils # Man Lymphocytes # (Manual) Monocytes # (Manual) PT INR D-Dimer Heparin Anti-Xa Level POC ABG pH ABG pH POC ABG pCO2 POC ABG pO2 ABG pO2 ABG HCO3 ABG O2 Saturation ABG Base Excess ABG Hemoglobin Oxyhemoglobin Sodium Potassium Chloride Carbon Dioxide BUN Creatinine Glucose POC Glucose Lactic Acid Calcium Ionized Calcium 3.7 L Phosphorus Magnesium Iron TIBC Ferritin Total Bilirubin Direct Bilirubin AST ALT Alkaline Phosphatase Total Creatine Kinase CK-MB (CK-2) Troponin T C-Reactive Protein Serum Total Protein Total Protein Albumin Guuwy-4-Tjpjtjimf Cqayh-1-Lsnwbtbyy PEP Interpretation Triglycerides LDL Cholesterol Direct HDL Cholesterol Free T4 PTH Intact Urine WBC (Auto) Urine Creatinine Salicylates Acetaminophen Crossmatch 03/30/19 03/30/19 03/31/19 23:38 Unknown 04:44 WBC 11.5 H RBC 2.40 L Hgb 7.3 L Hct 21.9 L MCV MCH MCHC RDW 15.4 H Plt Count Lymph % (Auto) 10.6 L Armstrong % (Auto) Eos % (Auto) Lymph # Armstrong # Eos # Seg Neutrophils % 81.7 H Seg Neuts % (Manual) Lymphocytes % (Manual) Monocytes % (Manual) Nucleated RBC % Seg Neutrophils # 9.4 H Seg Neutrophils # Man Lymphocytes # (Manual) Monocytes # (Manual) PT INR D-Dimer Heparin Anti-Xa Level POC ABG pH ABG pH POC ABG pCO2 POC ABG pO2 ABG pO2 ABG HCO3 ABG O2 Saturation ABG Base Excess ABG Hemoglobin Oxyhemoglobin Sodium Potassium Chloride Carbon Dioxide BUN Creatinine Glucose POC Glucose 155 H Lactic Acid Calcium Ionized Calcium Phosphorus Magnesium Iron TIBC Ferritin Total Bilirubin Direct Bilirubin 0.4 H AST 63 H ALT Alkaline Phosphatase Total Creatine Kinase CK-MB (CK-2) Troponin T C-Reactive Protein Serum Total Protein Total Protein 4.9 L Albumin 2.2 L Nizmx-6-Vxyhgzlge Tlezj-3-Phkbcderb PEP Interpretation Triglycerides LDL Cholesterol Direct HDL Cholesterol Free T4 PTH Intact Urine WBC (Auto) Urine Creatinine Salicylates Acetaminophen Crossmatch 03/31/19 03/31/19 03/31/19 04:44 05:44 08:20 WBC RBC Hgb Hct MCV MCH MCHC RDW Plt Count Lymph % (Auto) Armstrong % (Auto) Eos % (Auto) Lymph # Armstrong # Eos # Seg Neutrophils % Seg Neuts % (Manual) Lymphocytes % (Manual) Monocytes % (Manual) Nucleated RBC % Seg Neutrophils # Seg Neutrophils # Man Lymphocytes # (Manual) Monocytes # (Manual) PT INR D-Dimer Heparin Anti-Xa Level POC ABG pH ABG pH POC ABG pCO2 53.5 H POC ABG pO2 62 L ABG pO2 ABG HCO3 ABG O2 Saturation ABG Base Excess ABG Hemoglobin Oxyhemoglobin Sodium 135 L Potassium Chloride 96.7 L Carbon Dioxide 19 L BUN 94 H Creatinine 7.8 H Glucose POC Glucose Lactic Acid Calcium 5.3 L* Ionized Calcium Phosphorus 8.20 H Magnesium Iron TIBC Ferritin Total Bilirubin Direct Bilirubin 0.4 H AST 60 H ALT Alkaline Phosphatase Total Creatine Kinase CK-MB (CK-2) Troponin T C-Reactive Protein Serum Total Protein Total Protein 4.8 L Albumin 2.1 L Yqvty-0-Vrcabtlfj Yutpf-0-Siysobvkx PEP Interpretation Triglycerides LDL Cholesterol Direct HDL Cholesterol Free T4 PTH Intact Urine WBC (Auto) Urine Creatinine Salicylates Acetaminophen Crossmatch 03/31/19 04/01/19 04/01/19 22:14 04:27 04:27 WBC RBC 2.60 L Hgb 8.0 L Hct 24.1 L MCV MCH MCHC RDW 15.7 H Plt Count Lymph % (Auto) 7.9 L Armstrong % (Auto) Eos % (Auto) Lymph # 0.7 L Armstrong # Eos # Seg Neutrophils % 83.6 H Seg Neuts % (Manual) Lymphocytes % (Manual) Monocytes % (Manual) Nucleated RBC % Seg Neutrophils # Seg Neutrophils # Man Lymphocytes # (Manual) Monocytes # (Manual) PT INR D-Dimer Heparin Anti-Xa Level POC ABG pH 7.286 L ABG pH POC ABG pCO2 54.7 H POC ABG pO2 179 H ABG pO2 ABG HCO3 ABG O2 Saturation ABG Base Excess ABG Hemoglobin Oxyhemoglobin Sodium Potassium Chloride Carbon Dioxide BUN 68 H Creatinine 6.6 H Glucose POC Glucose Lactic Acid Calcium 6.5 L D Ionized Calcium Phosphorus 7.30 H Magnesium Iron TIBC Ferritin Total Bilirubin Direct Bilirubin AST ALT Alkaline Phosphatase Total Creatine Kinase 1652 H CK-MB (CK-2) Troponin T C-Reactive Protein Serum Total Protein Total Protein Albumin Ifqsb-5-Frpjpkoqf Sdioz-3-Kkypygkdy PEP Interpretation Triglycerides LDL Cholesterol Direct HDL Cholesterol Free T4 PTH Intact Urine WBC (Auto) Urine Creatinine Salicylates Acetaminophen Crossmatch 04/01/19 04/01/19 04/01/19 05:14 05:37 18:37 WBC RBC Hgb Hct MCV MCH MCHC RDW Plt Count Lymph % (Auto) Armstrong % (Auto) Eos % (Auto) Lymph # Armstrong # Eos # Seg Neutrophils % Seg Neuts % (Manual) Lymphocytes % (Manual) Monocytes % (Manual) Nucleated RBC % Seg Neutrophils # Seg Neutrophils # Man Lymphocytes # (Manual) Monocytes # (Manual) PT INR D-Dimer Heparin Anti-Xa Level POC ABG pH 7.283 L ABG pH POC ABG pCO2 53.4 H POC ABG pO2 241 H ABG pO2 ABG HCO3 ABG O2 Saturation ABG Base Excess ABG Hemoglobin Oxyhemoglobin Sodium Potassium Chloride Carbon Dioxide BUN Creatinine Glucose POC Glucose 111 H 119 H Lactic Acid Calcium Ionized Calcium Phosphorus Magnesium Iron TIBC Ferritin Total Bilirubin Direct Bilirubin AST ALT Alkaline Phosphatase Total Creatine Kinase CK-MB (CK-2) Troponin T C-Reactive Protein Serum Total Protein Total Protein Albumin Irlpd-1-Bvyrnqoml Risvy-0-Dhjfseaqq PEP Interpretation Triglycerides LDL Cholesterol Direct HDL Cholesterol Free T4 PTH Intact Urine WBC (Auto) Urine Creatinine Salicylates Acetaminophen Crossmatch 04/01/19 04/02/19 04/02/19 21:28 04:40 05:03 WBC RBC 2.36 L Hgb 7.2 L Hct 21.9 L MCV MCH MCHC RDW 16.0 H Plt Count Lymph % (Auto) 10.8 L Armstrong % (Auto) Eos % (Auto) Lymph # 0.8 L Armstrong # Eos # Seg Neutrophils % 80.3 H Seg Neuts % (Manual) Lymphocytes % (Manual) Monocytes % (Manual) Nucleated RBC % Seg Neutrophils # Seg Neutrophils # Man Lymphocytes # (Manual) Monocytes # (Manual) PT INR D-Dimer Heparin Anti-Xa Level POC ABG pH 7.299 L 7.300 L ABG pH POC ABG pCO2 48.2 H 45.2 H POC ABG pO2 133 H 107 H ABG pO2 ABG HCO3 ABG O2 Saturation ABG Base Excess ABG Hemoglobin Oxyhemoglobin Sodium Potassium Chloride Carbon Dioxide BUN Creatinine Glucose POC Glucose Lactic Acid Calcium Ionized Calcium Phosphorus Magnesium Iron TIBC Ferritin Total Bilirubin Direct Bilirubin AST ALT Alkaline Phosphatase Total Creatine Kinase CK-MB (CK-2) Troponin T C-Reactive Protein Serum Total Protein Total Protein Albumin Rpcjm-9-Dcekazuul Jvvzm-2-Qwqafxrhs PEP Interpretation Triglycerides LDL Cholesterol Direct HDL Cholesterol Free T4 PTH Intact Urine WBC (Auto) Urine Creatinine Salicylates Acetaminophen Crossmatch 04/02/19 04/02/19 04/02/19 05:03 05:03 12:15 WBC RBC Hgb 7.4 L Hct 22.6 L MCV MCH MCHC RDW Plt Count Lymph % (Auto) Armstrong % (Auto) Eos % (Auto) Lymph # Armstrong # Eos # Seg Neutrophils % Seg Neuts % (Manual) Lymphocytes % (Manual) Monocytes % (Manual) Nucleated RBC % Seg Neutrophils # Seg Neutrophils # Man Lymphocytes # (Manual) Monocytes # (Manual) PT INR D-Dimer Heparin Anti-Xa Level POC ABG pH ABG pH POC ABG pCO2 POC ABG pO2 ABG pO2 ABG HCO3 ABG O2 Saturation ABG Base Excess ABG Hemoglobin Oxyhemoglobin Sodium 136 L Potassium Chloride 97.8 L Carbon Dioxide 18 L BUN 82 H Creatinine 8.2 H Glucose POC Glucose Lactic Acid Calcium 6.7 L Ionized Calcium Phosphorus 7.50 H Magnesium Iron 26 L TIBC 138 L Ferritin 607.0 H Total Bilirubin Direct Bilirubin AST ALT Alkaline Phosphatase Total Creatine Kinase CK-MB (CK-2) Troponin T C-Reactive Protein Serum Total Protein Total Protein Albumin Whefy-4-Sywfebuab Zdbkm-2-Hvjwnxwzy PEP Interpretation Triglycerides LDL Cholesterol Direct HDL Cholesterol Free T4 PTH Intact Urine WBC (Auto) Urine Creatinine Salicylates Acetaminophen Crossmatch 04/02/19 04/02/19 04/03/19 16:34 17:14 04:18 WBC RBC Hgb Hct MCV MCH MCHC RDW Plt Count Lymph % (Auto) Armstrong % (Auto) Eos % (Auto) Lymph # Armstrong # Eos # Seg Neutrophils % Seg Neuts % (Manual) Lymphocytes % (Manual) Monocytes % (Manual) Nucleated RBC % Seg Neutrophils # Seg Neutrophils # Man Lymphocytes # (Manual) Monocytes # (Manual) PT INR D-Dimer Heparin Anti-Xa Level POC ABG pH ABG pH POC ABG pCO2 POC ABG pO2 146 H ABG pO2 ABG HCO3 ABG O2 Saturation ABG Base Excess ABG Hemoglobin Oxyhemoglobin Sodium Potassium Chloride Carbon Dioxide BUN Creatinine Glucose POC Glucose 108 H Lactic Acid Calcium Ionized Calcium Phosphorus Magnesium Iron TIBC Ferritin Total Bilirubin Direct Bilirubin AST ALT Alkaline Phosphatase Total Creatine Kinase CK-MB (CK-2) Troponin T C-Reactive Protein Serum Total Protein Total Protein Albumin Qxdqp-6-Dywfgphch Urpxn-4-Oqyhtfvrb PEP Interpretation Triglycerides LDL Cholesterol Direct HDL Cholesterol Free T4 PTH Intact Urine WBC (Auto) Urine Creatinine Salicylates Acetaminophen Crossmatch See Detail 04/03/19 04/03/19 04/03/19 04:25 08:30 18:24 WBC RBC 2.40 L Hgb 7.3 L Hct 21.9 L MCV MCH MCHC RDW Plt Count Lymph % (Auto) Armstrong % (Auto) 7.7 H Eos % (Auto) Lymph # 0.9 L Armstrong # Eos # Seg Neutrophils % 74.6 H Seg Neuts % (Manual) Lymphocytes % (Manual) Monocytes % (Manual) Nucleated RBC % Seg Neutrophils # Seg Neutrophils # Man Lymphocytes # (Manual) Monocytes # (Manual) PT INR D-Dimer Heparin Anti-Xa Level POC ABG pH ABG pH POC ABG pCO2 POC ABG pO2 ABG pO2 ABG HCO3 ABG O2 Saturation ABG Base Excess ABG Hemoglobin Oxyhemoglobin Sodium 136 L Potassium Chloride 97.0 L Carbon Dioxide BUN 58 H Creatinine 7.3 H Glucose POC Glucose 106 H Lactic Acid Calcium 7.5 L Ionized Calcium Phosphorus 5.80 H D Magnesium Iron TIBC Ferritin Total Bilirubin Direct Bilirubin AST ALT Alkaline Phosphatase Total Creatine Kinase CK-MB (CK-2) Troponin T C-Reactive Protein Serum Total Protein Total Protein Albumin Rdezr-3-Aykivxrzu Umadn-0-Nmwuosnct PEP Interpretation Triglycerides LDL Cholesterol Direct HDL Cholesterol Free T4 PTH Intact Urine WBC (Auto) Urine Creatinine Salicylates Acetaminophen Crossmatch 04/03/19 04/04/19 04/04/19 23:43 04:47 04:47 WBC RBC 2.72 L Hgb 8.3 L Hct 24.7 L MCV MCH MCHC RDW 15.6 H Plt Count Lymph % (Auto) Armstrong % (Auto) 10.1 H Eos % (Auto) Lymph # 0.8 L Armstrong # Eos # Seg Neutrophils % 71.4 H Seg Neuts % (Manual) Lymphocytes % (Manual) Monocytes % (Manual) Nucleated RBC % Seg Neutrophils # Seg Neutrophils # Man Lymphocytes # (Manual) Monocytes # (Manual) PT INR D-Dimer Heparin Anti-Xa Level POC ABG pH ABG pH POC ABG pCO2 POC ABG pO2 ABG pO2 123.8 H ABG HCO3 ABG O2 Saturation ABG Base Excess -3.0 L ABG Hemoglobin 7.9 L Oxyhemoglobin Sodium 134 L Potassium Chloride 97.9 L Carbon Dioxide BUN 64 H Creatinine 8.1 H Glucose POC Glucose Lactic Acid Calcium 7.2 L Ionized Calcium Phosphorus Magnesium Iron TIBC Ferritin Total Bilirubin Direct Bilirubin AST ALT Alkaline Phosphatase Total Creatine Kinase CK-MB (CK-2) Troponin T C-Reactive Protein Serum Total Protein Total Protein Albumin Wciuv-1-Eqqxnbojl Hbpls-4-Islzxzfzp PEP Interpretation Triglycerides LDL Cholesterol Direct HDL Cholesterol Free T4 PTH Intact Urine WBC (Auto) Urine Creatinine Salicylates Acetaminophen Crossmatch 04/04/19 04/04/19 04/04/19 06:07 13:40 18:18 WBC RBC Hgb Hct MCV MCH MCHC RDW Plt Count Lymph % (Auto) Armstrong % (Auto) Eos % (Auto) Lymph # Armstrong # Eos # Seg Neutrophils % Seg Neuts % (Manual) Lymphocytes % (Manual) Monocytes % (Manual) Nucleated RBC % Seg Neutrophils # Seg Neutrophils # Man Lymphocytes # (Manual) Monocytes # (Manual) PT INR D-Dimer Heparin Anti-Xa Level POC ABG pH ABG pH POC ABG pCO2 POC ABG pO2 ABG pO2 95.9 H ABG HCO3 ABG O2 Saturation ABG Base Excess -3.0 L ABG Hemoglobin 8.5 L Oxyhemoglobin Sodium Potassium Chloride Carbon Dioxide BUN Creatinine Glucose POC Glucose 107 H 107 H Lactic Acid Calcium Ionized Calcium Phosphorus Magnesium Iron TIBC Ferritin Total Bilirubin Direct Bilirubin AST ALT Alkaline Phosphatase Total Creatine Kinase CK-MB (CK-2) Troponin T C-Reactive Protein Serum Total Protein Total Protein Albumin Ajzjs-0-Zmtitrvhj Gjktx-5-Pmerwjtcl PEP Interpretation Triglycerides LDL Cholesterol Direct HDL Cholesterol Free T4 PTH Intact Urine WBC (Auto) Urine Creatinine Salicylates Acetaminophen Crossmatch 04/04/19 04/05/19 04/05/19 21:22 04:09 04:09 WBC RBC 2.76 L Hgb 8.4 L Hct 25.4 L MCV MCH MCHC RDW 15.8 H Plt Count 133 L Lymph % (Auto) Armstrong % (Auto) 9.6 H Eos % (Auto) Lymph # 0.7 L Armstrong # Eos # Seg Neutrophils % 72.6 H Seg Neuts % (Manual) Lymphocytes % (Manual) Monocytes % (Manual) Nucleated RBC % Seg Neutrophils # Seg Neutrophils # Man Lymphocytes # (Manual) Monocytes # (Manual) PT INR D-Dimer Heparin Anti-Xa Level POC ABG pH ABG pH POC ABG pCO2 47.2 H POC ABG pO2 137 H ABG pO2 ABG HCO3 ABG O2 Saturation ABG Base Excess ABG Hemoglobin Oxyhemoglobin Sodium 136 L Potassium Chloride Carbon Dioxide BUN 46 H Creatinine 6.7 H Glucose POC Glucose Lactic Acid Calcium 7.7 L Ionized Calcium Phosphorus Magnesium Iron TIBC Ferritin Total Bilirubin Direct Bilirubin AST ALT Alkaline Phosphatase Total Creatine Kinase CK-MB (CK-2) Troponin T C-Reactive Protein Serum Total Protein Total Protein Albumin Mvgwb-3-Auvdxrlvo Xlssv-2-Wdofaugeb PEP Interpretation Triglycerides LDL Cholesterol Direct HDL Cholesterol Free T4 PTH Intact Urine WBC (Auto) Urine Creatinine Salicylates Acetaminophen Crossmatch 04/05/19 04/05/19 04/05/19 05:28 06:14 16:50 WBC RBC Hgb Hct MCV MCH MCHC RDW Plt Count Lymph % (Auto) Armstrong % (Auto) Eos % (Auto) Lymph # Armstrong # Eos # Seg Neutrophils % Seg Neuts % (Manual) Lymphocytes % (Manual) Monocytes % (Manual) Nucleated RBC % Seg Neutrophils # Seg Neutrophils # Man Lymphocytes # (Manual) Monocytes # (Manual) PT INR D-Dimer Heparin Anti-Xa Level POC ABG pH ABG pH POC ABG pCO2 POC ABG pO2 67 L ABG pO2 ABG HCO3 ABG O2 Saturation ABG Base Excess ABG Hemoglobin Oxyhemoglobin Sodium Potassium Chloride Carbon Dioxide BUN Creatinine Glucose POC Glucose 108 H Lactic Acid Calcium Ionized Calcium Phosphorus Magnesium Iron TIBC Ferritin Total Bilirubin Direct Bilirubin AST ALT Alkaline Phosphatase Total Creatine Kinase CK-MB (CK-2) Troponin T C-Reactive Protein Serum Total Protein Total Protein Albumin Fjftj-0-Ohtlmlqim Ydhqv-6-Wfbhkuwkz PEP Interpretation Triglycerides LDL Cholesterol Direct HDL Cholesterol Free T4 PTH Intact Urine WBC (Auto) 40.0 H Urine Creatinine Salicylates Acetaminophen Crossmatch 04/05/19 04/06/19 04/06/19 17:22 00:13 04:44 WBC RBC 2.48 L Hgb 7.5 L Hct 22.9 L MCV MCH MCHC RDW 16.0 H Plt Count 107 L Lymph % (Auto) Armstrong % (Auto) 10.7 H Eos % (Auto) Lymph # 1.0 L Armstrong # Eos # Seg Neutrophils % Seg Neuts % (Manual) Lymphocytes % (Manual) Monocytes % (Manual) Nucleated RBC % Seg Neutrophils # Seg Neutrophils # Man Lymphocytes # (Manual) Monocytes # (Manual) PT INR D-Dimer Heparin Anti-Xa Level POC ABG pH ABG pH POC ABG pCO2 POC ABG pO2 ABG pO2 ABG HCO3 ABG O2 Saturation ABG Base Excess ABG Hemoglobin Oxyhemoglobin Sodium Potassium Chloride Carbon Dioxide BUN Creatinine Glucose POC Glucose 118 H 138 H Lactic Acid Calcium Ionized Calcium Phosphorus Magnesium Iron TIBC Ferritin Total Bilirubin Direct Bilirubin AST ALT Alkaline Phosphatase Total Creatine Kinase CK-MB (CK-2) Troponin T C-Reactive Protein Serum Total Protein Total Protein Albumin Luzwy-9-Ffuqxeaqy Ckzvu-7-Lzxdfkwyd PEP Interpretation Triglycerides LDL Cholesterol Direct HDL Cholesterol Free T4 PTH Intact Urine WBC (Auto) Urine Creatinine Salicylates Acetaminophen Crossmatch 04/06/19 04/06/19 04/06/19 04:44 05:20 05:23 WBC RBC Hgb Hct MCV MCH MCHC RDW Plt Count Lymph % (Auto) Armstrong % (Auto) Eos % (Auto) Lymph # Armstrong # Eos # Seg Neutrophils % Seg Neuts % (Manual) Lymphocytes % (Manual) Monocytes % (Manual) Nucleated RBC % Seg Neutrophils # Seg Neutrophils # Man Lymphocytes # (Manual) Monocytes # (Manual) PT INR D-Dimer Heparin Anti-Xa Level POC ABG pH ABG pH POC ABG pCO2 POC ABG pO2 ABG pO2 104.0 H ABG HCO3 ABG O2 Saturation ABG Base Excess -2.1 L ABG Hemoglobin 7.3 L Oxyhemoglobin Sodium Potassium Chloride Carbon Dioxide BUN 64 H Creatinine 8.2 H Glucose 103 H POC Glucose 118 H Lactic Acid Calcium 7.3 L Ionized Calcium Phosphorus Magnesium Iron TIBC Ferritin Total Bilirubin Direct Bilirubin AST ALT Alkaline Phosphatase Total Creatine Kinase CK-MB (CK-2) Troponin T C-Reactive Protein Serum Total Protein Total Protein Albumin Symmo-4-Uydkbqrpb Zocpu-8-Dcajqnwax PEP Interpretation Triglycerides LDL Cholesterol Direct HDL Cholesterol Free T4 PTH Intact Urine WBC (Auto) Urine Creatinine Salicylates Acetaminophen Crossmatch 04/06/19 04/07/19 04/07/19 12:02 05:40 05:40 WBC RBC 2.59 L Hgb 7.9 L Hct 23.8 L MCV MCH MCHC RDW 15.8 H Plt Count 89 L Lymph % (Auto) Armstrong % (Auto) 10.3 H Eos % (Auto) Lymph # 1.1 L Armstrong # Eos # Seg Neutrophils % Seg Neuts % (Manual) Lymphocytes % (Manual) Monocytes % (Manual) Nucleated RBC % Seg Neutrophils # Seg Neutrophils # Man Lymphocytes # (Manual) Monocytes # (Manual) PT INR D-Dimer Heparin Anti-Xa Level POC ABG pH ABG pH POC ABG pCO2 POC ABG pO2 ABG pO2 ABG HCO3 ABG O2 Saturation ABG Base Excess ABG Hemoglobin Oxyhemoglobin Sodium 136 L Potassium 3.5 L Chloride Carbon Dioxide BUN 46 H Creatinine 6.2 H Glucose POC Glucose 108 H Lactic Acid Calcium 7.9 L Ionized Calcium Phosphorus Magnesium Iron TIBC Ferritin Total Bilirubin Direct Bilirubin AST ALT Alkaline Phosphatase Total Creatine Kinase CK-MB (CK-2) Troponin T C-Reactive Protein Serum Total Protein Total Protein Albumin Ejppb-0-Ldgdetlds Keslz-5-Tdqvwrpym PEP Interpretation Triglycerides LDL Cholesterol Direct HDL Cholesterol Free T4 PTH Intact Urine WBC (Auto) Urine Creatinine Salicylates Acetaminophen Crossmatch 04/07/19 04/09/19 04/09/19 12:57 04:28 04:28 WBC RBC 2.85 L Hgb 8.7 L Hct 26.2 L MCV MCH MCHC RDW 15.6 H Plt Count Lymph % (Auto) Armstrong % (Auto) 10.4 H Eos % (Auto) Lymph # 1.0 L Armstrong # Eos # Seg Neutrophils % 73.3 H Seg Neuts % (Manual) Lymphocytes % (Manual) Monocytes % (Manual) Nucleated RBC % Seg Neutrophils # Seg Neutrophils # Man Lymphocytes # (Manual) Monocytes # (Manual) PT INR D-Dimer Heparin Anti-Xa Level POC ABG pH ABG pH POC ABG pCO2 POC ABG pO2 107 H ABG pO2 ABG HCO3 ABG O2 Saturation ABG Base Excess ABG Hemoglobin Oxyhemoglobin Sodium Potassium 3.5 L Chloride 97.8 L Carbon Dioxide BUN 62 H Creatinine 8.1 H Glucose POC Glucose Lactic Acid Calcium 8.2 L Ionized Calcium Phosphorus 5.10 H Magnesium Iron TIBC Ferritin Total Bilirubin Direct Bilirubin AST ALT Alkaline Phosphatase Total Creatine Kinase CK-MB (CK-2) Troponin T C-Reactive Protein Serum Total Protein Total Protein Albumin Eksul-3-Evlxvpcxm Pfnwv-6-Ddsgrhknc PEP Interpretation Triglycerides LDL Cholesterol Direct HDL Cholesterol Free T4 PTH Intact Urine WBC (Auto) Urine Creatinine Salicylates Acetaminophen Crossmatch 04/10/19 04/11/19 04/11/19 18:15 00:25 04:16 WBC 11.5 H RBC 2.91 L Hgb 8.9 L Hct 27.6 L MCV 95 H MCH MCHC RDW 17.5 H Plt Count Lymph % (Auto) Armstrong % (Auto) Eos % (Auto) Lymph # Armstrong # Eos # Seg Neutrophils % Seg Neuts % (Manual) 71.0 H Lymphocytes % (Manual) Monocytes % (Manual) 8.0 H Nucleated RBC % Seg Neutrophils # Seg Neutrophils # Man 8.2 H Lymphocytes # (Manual) Monocytes # (Manual) 0.9 H PT INR D-Dimer Heparin Anti-Xa Level POC ABG pH ABG pH POC ABG pCO2 POC ABG pO2 ABG pO2 ABG HCO3 ABG O2 Saturation ABG Base Excess ABG Hemoglobin Oxyhemoglobin Sodium Potassium Chloride Carbon Dioxide BUN Creatinine Glucose POC Glucose 109 H 114 H Lactic Acid Calcium Ionized Calcium Phosphorus Magnesium Iron TIBC Ferritin Total Bilirubin Direct Bilirubin AST ALT Alkaline Phosphatase Total Creatine Kinase CK-MB (CK-2) Troponin T C-Reactive Protein Serum Total Protein Total Protein Albumin Yzrjv-6-Pmufbtqwz Zquaq-0-Uzskqpvzd PEP Interpretation Triglycerides LDL Cholesterol Direct HDL Cholesterol Free T4 PTH Intact Urine WBC (Auto) Urine Creatinine Salicylates Acetaminophen Crossmatch 04/11/19 04/11/19 04/11/19 06:47 09:21 12:15 WBC RBC Hgb Hct MCV MCH MCHC RDW Plt Count Lymph % (Auto) Armstrong % (Auto) Eos % (Auto) Lymph # Armstrong # Eos # Seg Neutrophils % Seg Neuts % (Manual) Lymphocytes % (Manual) Monocytes % (Manual) Nucleated RBC % Seg Neutrophils # Seg Neutrophils # Man Lymphocytes # (Manual) Monocytes # (Manual) PT INR D-Dimer Heparin Anti-Xa Level POC ABG pH ABG pH POC ABG pCO2 POC ABG pO2 ABG pO2 ABG HCO3 ABG O2 Saturation ABG Base Excess ABG Hemoglobin Oxyhemoglobin Sodium Potassium 3.5 L Chloride Carbon Dioxide BUN 45 H Creatinine 6.0 H Glucose 113 H POC Glucose 106 H 109 H Lactic Acid Calcium Ionized Calcium Phosphorus Magnesium Iron TIBC Ferritin Total Bilirubin Direct Bilirubin AST ALT Alkaline Phosphatase Total Creatine Kinase CK-MB (CK-2) Troponin T C-Reactive Protein Serum Total Protein Total Protein Albumin Oojje-5-Yefxabzwq Hmnpq-0-Wvbybwprm PEP Interpretation Triglycerides LDL Cholesterol Direct HDL Cholesterol Free T4 PTH Intact Urine WBC (Auto) Urine Creatinine Salicylates Acetaminophen Crossmatch 04/11/19 04/12/19 04/12/19 18:42 12:13 23:52 WBC RBC Hgb Hct MCV MCH MCHC RDW Plt Count Lymph % (Auto) Armstrong % (Auto) Eos % (Auto) Lymph # Armstrong # Eos # Seg Neutrophils % Seg Neuts % (Manual) Lymphocytes % (Manual) Monocytes % (Manual) Nucleated RBC % Seg Neutrophils # Seg Neutrophils # Man Lymphocytes # (Manual) Monocytes # (Manual) PT INR D-Dimer Heparin Anti-Xa Level POC ABG pH ABG pH POC ABG pCO2 POC ABG pO2 ABG pO2 ABG HCO3 ABG O2 Saturation ABG Base Excess ABG Hemoglobin Oxyhemoglobin Sodium Potassium Chloride Carbon Dioxide BUN Creatinine Glucose POC Glucose 107 H 115 H 124 H Lactic Acid Calcium Ionized Calcium Phosphorus Magnesium Iron TIBC Ferritin Total Bilirubin Direct Bilirubin AST ALT Alkaline Phosphatase Total Creatine Kinase CK-MB (CK-2) Troponin T C-Reactive Protein Serum Total Protein Total Protein Albumin Ozdoa-9-Ebxblofwl Hgxjz-4-Jkcmxhrsw PEP Interpretation Triglycerides LDL Cholesterol Direct HDL Cholesterol Free T4 PTH Intact Urine WBC (Auto) Urine Creatinine Salicylates Acetaminophen Crossmatch 04/13/19 04/13/19 04/13/19 05:00 05:00 05:47 WBC 11.7 H RBC 2.97 L Hgb 8.8 L Hct 27.3 L MCV MCH MCHC RDW 16.1 H Plt Count Lymph % (Auto) 9.5 L Armstrong % (Auto) 9.9 H Eos % (Auto) Lymph # 1.1 L Armstrong # 1.2 H Eos # Seg Neutrophils % 78.6 H Seg Neuts % (Manual) Lymphocytes % (Manual) Monocytes % (Manual) Nucleated RBC % Seg Neutrophils # 9.2 H Seg Neutrophils # Man Lymphocytes # (Manual) Monocytes # (Manual) PT INR D-Dimer Heparin Anti-Xa Level POC ABG pH ABG pH POC ABG pCO2 POC ABG pO2 ABG pO2 ABG HCO3 ABG O2 Saturation ABG Base Excess ABG Hemoglobin Oxyhemoglobin Sodium Potassium 3.5 L Chloride Carbon Dioxide BUN 42 H Creatinine 4.6 H Glucose 106 H POC Glucose 107 H Lactic Acid Calcium 10.6 H D Ionized Calcium Phosphorus 5.90 H Magnesium Iron TIBC Ferritin Total Bilirubin Direct Bilirubin AST ALT Alkaline Phosphatase Total Creatine Kinase CK-MB (CK-2) Troponin T C-Reactive Protein Serum Total Protein Total Protein 5.8 L Albumin 2.5 L Nstfo-2-Wjlwkultd Dodvr-6-Gvlhunzmg PEP Interpretation Triglycerides LDL Cholesterol Direct HDL Cholesterol Free T4 PTH Intact Urine WBC (Auto) Urine Creatinine Salicylates Acetaminophen Crossmatch 04/13/19 04/14/19 04/14/19 17:32 00:00 03:55 WBC RBC Hgb Hct MCV MCH MCHC RDW Plt Count Lymph % (Auto) Armstrong % (Auto) Eos % (Auto) Lymph # Armstrong # Eos # Seg Neutrophils % Seg Neuts % (Manual) Lymphocytes % (Manual) Monocytes % (Manual) Nucleated RBC % Seg Neutrophils # Seg Neutrophils # Man Lymphocytes # (Manual) Monocytes # (Manual) PT INR D-Dimer Heparin Anti-Xa Level POC ABG pH ABG pH POC ABG pCO2 POC ABG pO2 ABG pO2 ABG HCO3 ABG O2 Saturation ABG Base Excess ABG Hemoglobin Oxyhemoglobin Sodium Potassium 3.0 L Chloride Carbon Dioxide BUN 30 H Creatinine 3.1 H Glucose POC Glucose 112 H 120 H Lactic Acid Calcium 10.8 H Ionized Calcium Phosphorus Magnesium Iron TIBC Ferritin Total Bilirubin Direct Bilirubin AST ALT Alkaline Phosphatase Total Creatine Kinase CK-MB (CK-2) Troponin T C-Reactive Protein Serum Total Protein Total Protein Albumin Msewb-6-Bhvesglre Uoyof-1-Veodscnls PEP Interpretation Triglycerides LDL Cholesterol Direct HDL Cholesterol Free T4 PTH Intact Urine WBC (Auto) Urine Creatinine Salicylates Acetaminophen Crossmatch 04/14/19 04/14/19 04/15/19 11:56 23:28 05:11 WBC 13.0 H RBC 2.93 L Hgb 8.6 L Hct 26.5 L MCV MCH MCHC RDW 16.5 H Plt Count Lymph % (Auto) 12.2 L Armstrong % (Auto) 9.1 H Eos % (Auto) Lymph # Armstrong # 1.2 H Eos # Seg Neutrophils % 77.6 H Seg Neuts % (Manual) Lymphocytes % (Manual) Monocytes % (Manual) Nucleated RBC % Seg Neutrophils # 10.1 H Seg Neutrophils # Man Lymphocytes # (Manual) Monocytes # (Manual) PT INR D-Dimer Heparin Anti-Xa Level POC ABG pH ABG pH POC ABG pCO2 POC ABG pO2 ABG pO2 ABG HCO3 ABG O2 Saturation ABG Base Excess ABG Hemoglobin Oxyhemoglobin Sodium Potassium Chloride Carbon Dioxide BUN Creatinine Glucose POC Glucose 109 H 112 H Lactic Acid Calcium Ionized Calcium Phosphorus Magnesium Iron TIBC Ferritin Total Bilirubin Direct Bilirubin AST ALT Alkaline Phosphatase Total Creatine Kinase CK-MB (CK-2) Troponin T C-Reactive Protein Serum Total Protein Total Protein Albumin Urvdx-0-Raksvfajv Sjdxe-6-Lnhbuecac PEP Interpretation Triglycerides LDL Cholesterol Direct HDL Cholesterol Free T4 PTH Intact Urine WBC (Auto) Urine Creatinine Salicylates Acetaminophen Crossmatch 04/15/19 04/15/19 04/15/19 05:11 05:31 18:03 WBC RBC Hgb Hct MCV MCH MCHC RDW Plt Count Lymph % (Auto) Armstrong % (Auto) Eos % (Auto) Lymph # Armstrong # Eos # Seg Neutrophils % Seg Neuts % (Manual) Lymphocytes % (Manual) Monocytes % (Manual) Nucleated RBC % Seg Neutrophils # Seg Neutrophils # Man Lymphocytes # (Manual) Monocytes # (Manual) PT INR D-Dimer Heparin Anti-Xa Level POC ABG pH ABG pH POC ABG pCO2 POC ABG pO2 ABG pO2 ABG HCO3 ABG O2 Saturation ABG Base Excess ABG Hemoglobin Oxyhemoglobin Sodium Potassium 3.2 L Chloride Carbon Dioxide BUN 44 H Creatinine 3.6 H Glucose 106 H POC Glucose 110 H 121 H Lactic Acid Calcium 12.0 H Ionized Calcium Phosphorus 5.00 H Magnesium Iron TIBC Ferritin Total Bilirubin Direct Bilirubin AST ALT Alkaline Phosphatase Total Creatine Kinase CK-MB (CK-2) Troponin T C-Reactive Protein Serum Total Protein Total Protein Albumin Riegb-3-Jehafiiir Ligex-0-Hxzvgvnyk PEP Interpretation Triglycerides LDL Cholesterol Direct HDL Cholesterol Free T4 PTH Intact Urine WBC (Auto) Urine Creatinine Salicylates Acetaminophen Crossmatch 04/16/19 04/16/19 04/17/19 05:07 05:07 04:15 WBC 12.6 H RBC 3.12 L Hgb 9.0 L Hct 28.2 L MCV MCH MCHC RDW 16.6 H Plt Count Lymph % (Auto) 10.3 L Armstrong % (Auto) 9.8 H Eos % (Auto) Lymph # Armstrong # 1.2 H Eos # Seg Neutrophils % 78.2 H Seg Neuts % (Manual) Lymphocytes % (Manual) Monocytes % (Manual) Nucleated RBC % Seg Neutrophils # 9.9 H Seg Neutrophils # Man Lymphocytes # (Manual) Monocytes # (Manual) PT INR D-Dimer Heparin Anti-Xa Level POC ABG pH ABG pH POC ABG pCO2 POC ABG pO2 ABG pO2 ABG HCO3 ABG O2 Saturation ABG Base Excess ABG Hemoglobin Oxyhemoglobin Sodium 147 H 150 H Potassium 3.5 L 3.1 L Chloride Carbon Dioxide 32 H BUN 54 H 65 H Creatinine 3.8 H 4.0 H Glucose 102 H 107 H POC Glucose Lactic Acid Calcium 11.7 H 12.0 H Ionized Calcium Phosphorus 5.40 H Magnesium Iron TIBC Ferritin Total Bilirubin Direct Bilirubin AST ALT Alkaline Phosphatase Total Creatine Kinase CK-MB (CK-2) Troponin T C-Reactive Protein 7.10 H Serum Total Protein Total Protein Albumin Aosqw-0-Ztwrysdsb Dzhsq-9-Ouiabrlrt PEP Interpretation Triglycerides LDL Cholesterol Direct HDL Cholesterol Free T4 PTH Intact Urine WBC (Auto) Urine Creatinine Salicylates Acetaminophen Crossmatch 04/17/19 04/17/19 04/17/19 04:15 06:05 12:49 WBC 15.8 H RBC 3.32 L Hgb 9.5 L Hct 29.9 L MCV MCH MCHC RDW 16.9 H Plt Count Lymph % (Auto) 12.6 L Armstrong % (Auto) 11.1 H Eos % (Auto) Lymph # Armstrong # 1.7 H Eos # Seg Neutrophils % 74.7 H Seg Neuts % (Manual) Lymphocytes % (Manual) Monocytes % (Manual) Nucleated RBC % Seg Neutrophils # 11.8 H Seg Neutrophils # Man Lymphocytes # (Manual) Monocytes # (Manual) PT INR D-Dimer Heparin Anti-Xa Level POC ABG pH ABG pH POC ABG pCO2 POC ABG pO2 ABG pO2 ABG HCO3 ABG O2 Saturation ABG Base Excess ABG Hemoglobin Oxyhemoglobin Sodium Potassium Chloride Carbon Dioxide BUN Creatinine Glucose POC Glucose 111 H 108 H Lactic Acid Calcium Ionized Calcium Phosphorus Magnesium Iron TIBC Ferritin Total Bilirubin Direct Bilirubin AST ALT Alkaline Phosphatase Total Creatine Kinase CK-MB (CK-2) Troponin T C-Reactive Protein Serum Total Protein Total Protein Albumin Peqbj-3-Hzwqujatx Fytor-2-Wywmduzke PEP Interpretation Triglycerides LDL Cholesterol Direct HDL Cholesterol Free T4 PTH Intact Urine WBC (Auto) Urine Creatinine Salicylates Acetaminophen Crossmatch 04/18/19 04/18/19 04/18/19 00:23 04:41 04:41 WBC 19.4 H RBC 3.03 L Hgb 8.6 L Hct 27.5 L MCV MCH MCHC 31 L RDW 16.9 H Plt Count Lymph % (Auto) Armstrong % (Auto) Eos % (Auto) Lymph # Armstrong # Eos # Seg Neutrophils % Seg Neuts % (Manual) Lymphocytes % (Manual) Monocytes % (Manual) Nucleated RBC % Seg Neutrophils # Seg Neutrophils # Man Lymphocytes # (Manual) Monocytes # (Manual) PT INR D-Dimer Heparin Anti-Xa Level POC ABG pH ABG pH POC ABG pCO2 POC ABG pO2 ABG pO2 ABG HCO3 ABG O2 Saturation ABG Base Excess ABG Hemoglobin Oxyhemoglobin Sodium 152 H Potassium 3.0 L Chloride Carbon Dioxide BUN 80 H Creatinine 4.3 H Glucose 103 H POC Glucose 115 H Lactic Acid Calcium 11.4 H Ionized Calcium Phosphorus Magnesium Iron TIBC Ferritin Total Bilirubin Direct Bilirubin AST ALT Alkaline Phosphatase Total Creatine Kinase CK-MB (CK-2) Troponin T C-Reactive Protein Serum Total Protein Total Protein Albumin Uuwfn-8-Wfnablljy Sydjr-4-Dmgfegkin PEP Interpretation Triglycerides LDL Cholesterol Direct HDL Cholesterol Free T4 PTH Intact Urine WBC (Auto) Urine Creatinine Salicylates Acetaminophen Crossmatch 04/18/19 04/18/19 04/18/19 06:17 12:16 18:10 WBC RBC Hgb Hct MCV MCH MCHC RDW Plt Count Lymph % (Auto) Armstrong % (Auto) Eos % (Auto) Lymph # Armstrong # Eos # Seg Neutrophils % Seg Neuts % (Manual) Lymphocytes % (Manual) Monocytes % (Manual) Nucleated RBC % Seg Neutrophils # Seg Neutrophils # Man Lymphocytes # (Manual) Monocytes # (Manual) PT INR D-Dimer Heparin Anti-Xa Level POC ABG pH ABG pH POC ABG pCO2 POC ABG pO2 ABG pO2 ABG HCO3 ABG O2 Saturation ABG Base Excess ABG Hemoglobin Oxyhemoglobin Sodium Potassium Chloride Carbon Dioxide BUN Creatinine Glucose POC Glucose 124 H 119 H 111 H Lactic Acid Calcium Ionized Calcium Phosphorus Magnesium Iron TIBC Ferritin Total Bilirubin Direct Bilirubin AST ALT Alkaline Phosphatase Total Creatine Kinase CK-MB (CK-2) Troponin T C-Reactive Protein Serum Total Protein Total Protein Albumin Wdtmh-5-Dzaxknhwa Sawoz-5-Clquaydhx PEP Interpretation Triglycerides LDL Cholesterol Direct HDL Cholesterol Free T4 PTH Intact Urine WBC (Auto) Urine Creatinine Salicylates Acetaminophen Crossmatch 04/19/19 04/19/19 04/20/19 03:49 05:27 09:09 WBC RBC Hgb Hct MCV MCH MCHC RDW Plt Count Lymph % (Auto) Armstrong % (Auto) Eos % (Auto) Lymph # Armstrong # Eos # Seg Neutrophils % Seg Neuts % (Manual) Lymphocytes % (Manual) Monocytes % (Manual) Nucleated RBC % Seg Neutrophils # Seg Neutrophils # Man Lymphocytes # (Manual) Monocytes # (Manual) PT INR D-Dimer Heparin Anti-Xa Level POC ABG pH ABG pH POC ABG pCO2 POC ABG pO2 ABG pO2 ABG HCO3 ABG O2 Saturation ABG Base Excess ABG Hemoglobin Oxyhemoglobin Sodium 147 H 150 H Potassium 3.3 L Chloride 108.9 H Carbon Dioxide BUN 45 H 70 H Creatinine 2.9 H 4.1 H Glucose 105 H POC Glucose 124 H Lactic Acid Calcium 10.6 H 11.6 H Ionized Calcium Phosphorus Magnesium Iron TIBC Ferritin Total Bilirubin Direct Bilirubin AST ALT Alkaline Phosphatase Total Creatine Kinase CK-MB (CK-2) Troponin T C-Reactive Protein Serum Total Protein Total Protein Albumin Cdhxw-9-Hthiqvvwa Qjsju-1-Mbxoswtsm PEP Interpretation Triglycerides LDL Cholesterol Direct HDL Cholesterol Free T4 PTH Intact Urine WBC (Auto) Urine Creatinine Salicylates Acetaminophen Crossmatch 04/20/19 04/20/19 04/21/19 12:29 18:45 01:34 WBC RBC Hgb Hct MCV MCH MCHC RDW Plt Count Lymph % (Auto) Armstrong % (Auto) Eos % (Auto) Lymph # Armstrong # Eos # Seg Neutrophils % Seg Neuts % (Manual) Lymphocytes % (Manual) Monocytes % (Manual) Nucleated RBC % Seg Neutrophils # Seg Neutrophils # Man Lymphocytes # (Manual) Monocytes # (Manual) PT INR D-Dimer Heparin Anti-Xa Level POC ABG pH ABG pH POC ABG pCO2 POC ABG pO2 ABG pO2 ABG HCO3 ABG O2 Saturation ABG Base Excess ABG Hemoglobin Oxyhemoglobin Sodium Potassium Chloride Carbon Dioxide BUN 40 H Creatinine 2.6 H Glucose 104 H POC Glucose 131 H 134 H Lactic Acid Calcium 11.0 H Ionized Calcium Phosphorus Magnesium Iron TIBC Ferritin Total Bilirubin Direct Bilirubin AST ALT Alkaline Phosphatase Total Creatine Kinase CK-MB (CK-2) Troponin T C-Reactive Protein Serum Total Protein Total Protein Albumin Luzpw-2-Ntsoveefj Labnv-2-Prsfhqphv PEP Interpretation Triglycerides LDL Cholesterol Direct HDL Cholesterol Free T4 PTH Intact Urine WBC (Auto) Urine Creatinine Salicylates Acetaminophen Crossmatch 04/21/19 04/21/19 04/22/19 04:22 04:22 04:24 WBC 14.2 H 14.3 H RBC 3.02 L 3.57 L Hgb 8.7 L 10.1 L Hct 27.2 L 32.1 L MCV MCH MCHC RDW 16.7 H 17.2 H Plt Count Lymph % (Auto) Armstrong % (Auto) Eos % (Auto) Lymph # Armstrong # Eos # Seg Neutrophils % Seg Neuts % (Manual) Lymphocytes % (Manual) Monocytes % (Manual) Nucleated RBC % Seg Neutrophils # Seg Neutrophils # Man Lymphocytes # (Manual) Monocytes # (Manual) PT INR D-Dimer Heparin Anti-Xa Level POC ABG pH ABG pH POC ABG pCO2 POC ABG pO2 ABG pO2 ABG HCO3 ABG O2 Saturation ABG Base Excess ABG Hemoglobin Oxyhemoglobin Sodium Potassium Chloride Carbon Dioxide BUN Creatinine Glucose POC Glucose Lactic Acid Calcium Ionized Calcium Phosphorus Magnesium Iron TIBC Ferritin Total Bilirubin Direct Bilirubin AST ALT Alkaline Phosphatase Total Creatine Kinase CK-MB (CK-2) Troponin T C-Reactive Protein Serum Total Protein 5.7 L Total Protein Albumin 2.3 L Dhksp-7-Ahbyfqkyn 0.5 H Xhiqk-5-Zrfvcyyqj 1.0 H PEP Interpretation see below H Triglycerides LDL Cholesterol Direct HDL Cholesterol Free T4 PTH Intact Urine WBC (Auto) Urine Creatinine Salicylates Acetaminophen Crossmatch 04/22/19 04/22/19 04/22/19 04:24 06:37 11:57 WBC RBC Hgb Hct MCV MCH MCHC RDW Plt Count Lymph % (Auto) Armstrong % (Auto) Eos % (Auto) Lymph # Armstrong # Eos # Seg Neutrophils % Seg Neuts % (Manual) Lymphocytes % (Manual) Monocytes % (Manual) Nucleated RBC % Seg Neutrophils # Seg Neutrophils # Man Lymphocytes # (Manual) Monocytes # (Manual) PT INR D-Dimer Heparin Anti-Xa Level POC ABG pH ABG pH POC ABG pCO2 POC ABG pO2 ABG pO2 ABG HCO3 ABG O2 Saturation ABG Base Excess ABG Hemoglobin Oxyhemoglobin Sodium Potassium Chloride Carbon Dioxide BUN 54 H Creatinine 3.5 H Glucose POC Glucose 113 H 110 H Lactic Acid Calcium 11.4 H Ionized Calcium Phosphorus Magnesium Iron TIBC Ferritin Total Bilirubin Direct Bilirubin AST ALT Alkaline Phosphatase Total Creatine Kinase CK-MB (CK-2) Troponin T C-Reactive Protein Serum Total Protein Total Protein Albumin Gnyad-2-Tccxfzpac Yntpc-9-Nhmpumprj PEP Interpretation Triglycerides LDL Cholesterol Direct HDL Cholesterol Free T4 PTH Intact Urine WBC (Auto) Urine Creatinine Salicylates Acetaminophen Crossmatch 04/22/19 04/23/19 04/23/19 18:33 04:06 04:06 WBC 16.1 H RBC 3.36 L Hgb 9.8 L Hct 30.8 L MCV MCH MCHC RDW 17.7 H Plt Count Lymph % (Auto) 9.9 L Armstrong % (Auto) Eos % (Auto) Lymph # Armstrong # Eos # Seg Neutrophils % 84.2 H Seg Neuts % (Manual) Lymphocytes % (Manual) Monocytes % (Manual) Nucleated RBC % Seg Neutrophils # 13.6 H Seg Neutrophils # Man Lymphocytes # (Manual) Monocytes # (Manual) PT INR D-Dimer Heparin Anti-Xa Level POC ABG pH ABG pH POC ABG pCO2 POC ABG pO2 ABG pO2 ABG HCO3 ABG O2 Saturation ABG Base Excess ABG Hemoglobin Oxyhemoglobin Sodium Potassium Chloride Carbon Dioxide BUN 59 H Creatinine 3.8 H Glucose POC Glucose 120 H Lactic Acid Calcium 12.3 H* Ionized Calcium Phosphorus 5.70 H Magnesium Iron TIBC Ferritin Total Bilirubin Direct Bilirubin AST ALT Alkaline Phosphatase Total Creatine Kinase CK-MB (CK-2) Troponin T C-Reactive Protein Serum Total Protein Total Protein Albumin 3.2 L Dkjdv-1-Ujjegjysb Vbiox-0-Wdiypzzuf PEP Interpretation Triglycerides LDL Cholesterol Direct HDL Cholesterol Free T4 PTH Intact Urine WBC (Auto) Urine Creatinine Salicylates Acetaminophen Crossmatch 04/23/19 04/24/19 04/24/19 18:06 04:12 04:12 WBC 18.0 H RBC 3.46 L Hgb 9.8 L Hct 31.2 L MCV MCH MCHC 31 L RDW 17.5 H Plt Count Lymph % (Auto) 11.1 L Armstrong % (Auto) Eos % (Auto) Lymph # Armstrong # Eos # Seg Neutrophils % 81.9 H Seg Neuts % (Manual) Lymphocytes % (Manual) Monocytes % (Manual) Nucleated RBC % Seg Neutrophils # 14.7 H Seg Neutrophils # Man Lymphocytes # (Manual) Monocytes # (Manual) PT INR D-Dimer Heparin Anti-Xa Level POC ABG pH ABG pH POC ABG pCO2 POC ABG pO2 ABG pO2 ABG HCO3 ABG O2 Saturation ABG Base Excess ABG Hemoglobin Oxyhemoglobin Sodium Potassium Chloride Carbon Dioxide BUN 56 H Creatinine 3.6 H Glucose POC Glucose 124 H Lactic Acid Calcium 12.6 H* Ionized Calcium Phosphorus Magnesium Iron TIBC Ferritin Total Bilirubin Direct Bilirubin AST ALT Alkaline Phosphatase Total Creatine Kinase CK-MB (CK-2) Troponin T C-Reactive Protein Serum Total Protein Total Protein Albumin 3.2 L Ksfqf-8-Axyyhslnv Jkoqr-7-Pftiihyha PEP Interpretation Triglycerides LDL Cholesterol Direct HDL Cholesterol Free T4 PTH Intact Urine WBC (Auto) Urine Creatinine Salicylates Acetaminophen Crossmatch 04/24/19 04/24/19 04/25/19 06:21 11:47 05:58 WBC 18.0 H RBC 2.98 L Hgb 8.3 L Hct 26.5 L MCV MCH MCHC 31 L RDW 17.9 H Plt Count Lymph % (Auto) 10.1 L Armstrong % (Auto) Eos % (Auto) Lymph # Armstrong # 0.9 H Eos # Seg Neutrophils % 82.8 H Seg Neuts % (Manual) Lymphocytes % (Manual) Monocytes % (Manual) Nucleated RBC % Seg Neutrophils # 15.0 H Seg Neutrophils # Man Lymphocytes # (Manual) Monocytes # (Manual) PT INR D-Dimer Heparin Anti-Xa Level POC ABG pH ABG pH POC ABG pCO2 POC ABG pO2 ABG pO2 ABG HCO3 ABG O2 Saturation ABG Base Excess ABG Hemoglobin Oxyhemoglobin Sodium Potassium Chloride Carbon Dioxide BUN Creatinine Glucose POC Glucose 132 H 106 H Lactic Acid Calcium Ionized Calcium Phosphorus Magnesium Iron TIBC Ferritin Total Bilirubin Direct Bilirubin AST ALT Alkaline Phosphatase Total Creatine Kinase CK-MB (CK-2) Troponin T C-Reactive Protein Serum Total Protein Total Protein Albumin Qgrgj-8-Lgrsuuicj Ibnsh-1-Wzobiwiyu PEP Interpretation Triglycerides LDL Cholesterol Direct HDL Cholesterol Free T4 PTH Intact Urine WBC (Auto) Urine Creatinine Salicylates Acetaminophen Crossmatch 04/25/19 04/26/19 04/26/19 05:58 05:57 06:08 WBC RBC Hgb Hct MCV MCH MCHC RDW Plt Count Lymph % (Auto) Armstrong % (Auto) Eos % (Auto) Lymph # Armstrong # Eos # Seg Neutrophils % Seg Neuts % (Manual) Lymphocytes % (Manual) Monocytes % (Manual) Nucleated RBC % Seg Neutrophils # Seg Neutrophils # Man Lymphocytes # (Manual) Monocytes # (Manual) PT INR D-Dimer Heparin Anti-Xa Level POC ABG pH ABG pH POC ABG pCO2 POC ABG pO2 ABG pO2 ABG HCO3 ABG O2 Saturation ABG Base Excess ABG Hemoglobin Oxyhemoglobin Sodium Potassium 3.2 L Chloride Carbon Dioxide BUN 52 H 48 H Creatinine 3.2 H 2.9 H Glucose 108 H 112 H POC Glucose 109 H Lactic Acid Calcium 11.4 H 12.5 H* Ionized Calcium Phosphorus 5.90 H Magnesium Iron TIBC Ferritin Total Bilirubin Direct Bilirubin AST ALT Alkaline Phosphatase Total Creatine Kinase CK-MB (CK-2) Troponin T C-Reactive Protein Serum Total Protein Total Protein Albumin 3.0 L Cafpv-6-Qztzjsbli Tsqfy-0-Phlcfujvv PEP Interpretation Triglycerides LDL Cholesterol Direct HDL Cholesterol Free T4 PTH Intact Urine WBC (Auto) Urine Creatinine Salicylates Acetaminophen Crossmatch 04/26/19 04/26/19 04/27/19 07:22 13:39 05:05 WBC 11.9 H RBC 3.01 L Hgb 8.6 L Hct 26.3 L MCV MCH MCHC RDW 17.6 H Plt Count Lymph % (Auto) 11.9 L Armstrong % (Auto) Eos % (Auto) Lymph # Armstrong # Eos # Seg Neutrophils % 78.3 H Seg Neuts % (Manual) Lymphocytes % (Manual) Monocytes % (Manual) Nucleated RBC % Seg Neutrophils # 9.4 H Seg Neutrophils # Man Lymphocytes # (Manual) Monocytes # (Manual) PT INR D-Dimer Heparin Anti-Xa Level POC ABG pH ABG pH POC ABG pCO2 POC ABG pO2 ABG pO2 ABG HCO3 ABG O2 Saturation ABG Base Excess ABG Hemoglobin Oxyhemoglobin Sodium Potassium Chloride Carbon Dioxide BUN 46 H Creatinine 2.8 H Glucose POC Glucose Lactic Acid Calcium > 13.0 H* 12.2 H* Ionized Calcium Phosphorus Magnesium Iron TIBC Ferritin Total Bilirubin Direct Bilirubin AST ALT Alkaline Phosphatase Total Creatine Kinase CK-MB (CK-2) Troponin T C-Reactive Protein Serum Total Protein Total Protein Albumin Svsfu-8-Qmrgjnhbv Fieou-2-Unbelptym PEP Interpretation Triglycerides LDL Cholesterol Direct HDL Cholesterol Free T4 PTH Intact Urine WBC (Auto) Urine Creatinine Salicylates Acetaminophen Crossmatch 04/27/19 04/28/19 04/29/19 05:05 05:17 14:14 WBC RBC Hgb Hct MCV MCH MCHC RDW Plt Count Lymph % (Auto) Armstrong % (Auto) Eos % (Auto) Lymph # Armstrong # Eos # Seg Neutrophils % Seg Neuts % (Manual) Lymphocytes % (Manual) Monocytes % (Manual) Nucleated RBC % Seg Neutrophils # Seg Neutrophils # Man Lymphocytes # (Manual) Monocytes # (Manual) PT INR D-Dimer Heparin Anti-Xa Level POC ABG pH ABG pH POC ABG pCO2 POC ABG pO2 ABG pO2 ABG HCO3 ABG O2 Saturation ABG Base Excess ABG Hemoglobin Oxyhemoglobin Sodium 136 L Potassium 3.2 L 3.4 L Chloride Carbon Dioxide BUN 40 H 34 H 33 H Creatinine 2.5 H 2.0 H 1.9 H Glucose 113 H 107 H POC Glucose Lactic Acid Calcium 12.3 H* 12.1 H* 11.5 H Ionized Calcium Phosphorus Magnesium Iron TIBC Ferritin Total Bilirubin Direct Bilirubin AST ALT Alkaline Phosphatase Total Creatine Kinase CK-MB (CK-2) Troponin T C-Reactive Protein Serum Total Protein Total Protein 6.2 L Albumin 2.8 L Nrcux-0-Alflqbphy Ltmlg-1-Mznmnaxrw PEP Interpretation Triglycerides LDL Cholesterol Direct HDL Cholesterol Free T4 PTH Intact Urine WBC (Auto) Urine Creatinine Salicylates Acetaminophen Crossmatch 04/29/19 04/29/19 04/30/19 14:14 14:14 06:47 WBC RBC Hgb Hct MCV MCH MCHC RDW Plt Count Lymph % (Auto) Armstrong % (Auto) Eos % (Auto) Lymph # Armstrong # Eos # Seg Neutrophils % Seg Neuts % (Manual) Lymphocytes % (Manual) Monocytes % (Manual) Nucleated RBC % Seg Neutrophils # Seg Neutrophils # Man Lymphocytes # (Manual) Monocytes # (Manual) PT INR D-Dimer Heparin Anti-Xa Level POC ABG pH ABG pH POC ABG pCO2 POC ABG pO2 ABG pO2 ABG HCO3 ABG O2 Saturation ABG Base Excess ABG Hemoglobin Oxyhemoglobin Sodium Potassium 3.2 L Chloride Carbon Dioxide 21 L BUN 26 H Creatinine 1.8 H Glucose POC Glucose Lactic Acid Calcium 10.8 H Ionized Calcium 7.2 H* Phosphorus Magnesium Iron TIBC Ferritin Total Bilirubin Direct Bilirubin AST ALT Alkaline Phosphatase Total Creatine Kinase CK-MB (CK-2) Troponin T C-Reactive Protein Serum Total Protein Total Protein Albumin Iekdv-8-Lpjpjpats Qclss-5-Bcoecoloa PEP Interpretation Triglycerides LDL Cholesterol Direct HDL Cholesterol Free T4 PTH Intact 8.83 L Urine WBC (Auto) Urine Creatinine Salicylates Acetaminophen Crossmatch 04/30/19 05/01/19 05/01/19 12:17 06:52 06:52 WBC 15.4 H RBC 3.01 L Hgb 8.4 L Hct 26.2 L MCV MCH MCHC RDW 17.0 H Plt Count Lymph % (Auto) 8.4 L Armstrong % (Auto) 8.9 H Eos % (Auto) Lymph # Armstrong # 1.4 H Eos # 0.5 H Seg Neutrophils % 78.7 H Seg Neuts % (Manual) Lymphocytes % (Manual) Monocytes % (Manual) Nucleated RBC % Seg Neutrophils # 12.1 H Seg Neutrophils # Man Lymphocytes # (Manual) Monocytes # (Manual) PT INR D-Dimer Heparin Anti-Xa Level POC ABG pH ABG pH POC ABG pCO2 POC ABG pO2 ABG pO2 ABG HCO3 ABG O2 Saturation ABG Base Excess ABG Hemoglobin Oxyhemoglobin Sodium Potassium 3.0 L Chloride Carbon Dioxide BUN 22 H Creatinine Glucose POC Glucose 106 H Lactic Acid Calcium 11.2 H Ionized Calcium Phosphorus Magnesium Iron TIBC Ferritin Total Bilirubin Direct Bilirubin AST ALT Alkaline Phosphatase Total Creatine Kinase CK-MB (CK-2) Troponin T C-Reactive Protein Serum Total Protein Total Protein Albumin 3.0 L Gpgqx-2-Hzsoeukfl Myqht-6-Yqpkdokwn PEP Interpretation Triglycerides LDL Cholesterol Direct HDL Cholesterol Free T4 PTH Intact Urine WBC (Auto) Urine Creatinine Salicylates Acetaminophen Crossmatch 05/01/19 05/01/19 05/02/19 06:52 18:40 05:32 WBC RBC Hgb Hct MCV MCH MCHC RDW Plt Count Lymph % (Auto) Armstrong % (Auto) Eos % (Auto) Lymph # Armstrong # Eos # Seg Neutrophils % Seg Neuts % (Manual) Lymphocytes % (Manual) Monocytes % (Manual) Nucleated RBC % Seg Neutrophils # Seg Neutrophils # Man Lymphocytes # (Manual) Monocytes # (Manual) PT INR D-Dimer Heparin Anti-Xa Level POC ABG pH ABG pH POC ABG pCO2 POC ABG pO2 ABG pO2 ABG HCO3 ABG O2 Saturation ABG Base Excess ABG Hemoglobin Oxyhemoglobin Sodium Potassium Chloride Carbon Dioxide BUN Creatinine Glucose POC Glucose 169 H 109 H Lactic Acid Calcium Ionized Calcium Phosphorus Magnesium Iron TIBC Ferritin Total Bilirubin Direct Bilirubin AST ALT Alkaline Phosphatase Total Creatine Kinase CK-MB (CK-2) Troponin T C-Reactive Protein Serum Total Protein 5.7 L Total Protein Albumin 2.5 L Dcrir-1-Rzxchafnk 0.5 H Etvdv-2-Ieocesblu PEP Interpretation see below H Triglycerides LDL Cholesterol Direct HDL Cholesterol Free T4 PTH Intact Urine WBC (Auto) Urine Creatinine Salicylates Acetaminophen Crossmatch 05/02/19 05/02/19 05/02/19 05:57 05:57 11:43 WBC 14.2 H RBC 2.96 L Hgb 8.3 L Hct 26.0 L MCV MCH MCHC RDW 16.8 H Plt Count Lymph % (Auto) Armstrong % (Auto) Eos % (Auto) Lymph # Armstrong # Eos # Seg Neutrophils % Seg Neuts % (Manual) Lymphocytes % (Manual) Monocytes % (Manual) Nucleated RBC % Seg Neutrophils # Seg Neutrophils # Man Lymphocytes # (Manual) Monocytes # (Manual) PT INR D-Dimer Heparin Anti-Xa Level POC ABG pH ABG pH POC ABG pCO2 POC ABG pO2 ABG pO2 ABG HCO3 ABG O2 Saturation ABG Base Excess ABG Hemoglobin Oxyhemoglobin Sodium 136 L Potassium 3.5 L Chloride Carbon Dioxide BUN 21 H Creatinine Glucose POC Glucose 108 H Lactic Acid Calcium 11.1 H Ionized Calcium Phosphorus Magnesium Iron TIBC Ferritin Total Bilirubin Direct Bilirubin AST ALT Alkaline Phosphatase Total Creatine Kinase CK-MB (CK-2) Troponin T C-Reactive Protein Serum Total Protein Total Protein Albumin Mfrdt-9-Lkgmfsvor Erhdf-1-Pyryuszaa PEP Interpretation Triglycerides LDL Cholesterol Direct HDL Cholesterol Free T4 PTH Intact Urine WBC (Auto) Urine Creatinine Salicylates Acetaminophen Crossmatch 05/03/19 05/03/19 05/04/19 05:37 05:37 06:49 WBC 12.7 H 11.1 H RBC 3.01 L 3.07 L Hgb 8.3 L 8.6 L Hct 26.1 L 26.6 L MCV MCH MCHC RDW 16.9 H 17.3 H Plt Count Lymph % (Auto) Armstrong % (Auto) 9.0 H Eos % (Auto) 4.9 H Lymph # Armstrong # 1.0 H Eos # 0.5 H Seg Neutrophils % Seg Neuts % (Manual) Lymphocytes % (Manual) Monocytes % (Manual) Nucleated RBC % Seg Neutrophils # 7.8 H Seg Neutrophils # Man Lymphocytes # (Manual) Monocytes # (Manual) PT INR D-Dimer Heparin Anti-Xa Level POC ABG pH ABG pH POC ABG pCO2 POC ABG pO2 ABG pO2 ABG HCO3 ABG O2 Saturation ABG Base Excess ABG Hemoglobin Oxyhemoglobin Sodium 135 L Potassium 3.3 L Chloride Carbon Dioxide BUN Creatinine Glucose POC Glucose Lactic Acid Calcium 10.9 H Ionized Calcium Phosphorus Magnesium 1.50 L Iron TIBC Ferritin Total Bilirubin Direct Bilirubin AST ALT Alkaline Phosphatase Total Creatine Kinase CK-MB (CK-2) Troponin T C-Reactive Protein Serum Total Protein Total Protein Albumin Jnjgc-4-Ugkgcojlj Oqxom-4-Vrfirfhip PEP Interpretation Triglycerides LDL Cholesterol Direct HDL Cholesterol Free T4 PTH Intact Urine WBC (Auto) Urine Creatinine Salicylates Acetaminophen Crossmatch 05/04/19 05/04/19 05/04/19 06:49 06:49 11:58 WBC RBC Hgb Hct MCV MCH MCHC RDW Plt Count Lymph % (Auto) Armstrong % (Auto) Eos % (Auto) Lymph # Armstrong # Eos # Seg Neutrophils % Seg Neuts % (Manual) Lymphocytes % (Manual) Monocytes % (Manual) Nucleated RBC % Seg Neutrophils # Seg Neutrophils # Man Lymphocytes # (Manual) Monocytes # (Manual) PT 15.5 H INR 1.24 H D-Dimer Heparin Anti-Xa Level POC ABG pH ABG pH POC ABG pCO2 POC ABG pO2 ABG pO2 ABG HCO3 ABG O2 Saturation ABG Base Excess ABG Hemoglobin Oxyhemoglobin Sodium Potassium Chloride Carbon Dioxide 19 L BUN Creatinine Glucose POC Glucose 111 H Lactic Acid Calcium 10.7 H Ionized Calcium Phosphorus Magnesium Iron TIBC Ferritin Total Bilirubin Direct Bilirubin AST ALT Alkaline Phosphatase Total Creatine Kinase CK-MB (CK-2) Troponin T C-Reactive Protein Serum Total Protein Total Protein Albumin Swscu-7-Owjiwftnn Llupx-6-Htkbuxbdx PEP Interpretation Triglycerides LDL Cholesterol Direct HDL Cholesterol Free T4 PTH Intact Urine WBC (Auto) Urine Creatinine Salicylates Acetaminophen Crossmatch 05/05/19 05/05/19 05/07/19 06:14 06:14 05:55 WBC 11.5 H 12.0 H RBC 3.08 L 3.33 L Hgb 8.5 L 9.2 L Hct 26.5 L 28.5 L MCV MCH MCHC RDW 17.1 H 17.6 H Plt Count Lymph % (Auto) Armstrong % (Auto) Eos % (Auto) 8.2 H Lymph # Armstrong # Eos # 1.0 H Seg Neutrophils % Seg Neuts % (Manual) Lymphocytes % (Manual) Monocytes % (Manual) Nucleated RBC % Seg Neutrophils # 8.2 H Seg Neutrophils # Man Lymphocytes # (Manual) Monocytes # (Manual) PT INR D-Dimer Heparin Anti-Xa Level POC ABG pH ABG pH POC ABG pCO2 POC ABG pO2 ABG pO2 ABG HCO3 ABG O2 Saturation ABG Base Excess ABG Hemoglobin Oxyhemoglobin Sodium 136 L Potassium Chloride Carbon Dioxide 21 L BUN Creatinine Glucose POC Glucose Lactic Acid Calcium 10.3 H Ionized Calcium Phosphorus Magnesium Iron TIBC Ferritin Total Bilirubin Direct Bilirubin AST ALT Alkaline Phosphatase Total Creatine Kinase CK-MB (CK-2) Troponin T C-Reactive Protein Serum Total Protein Total Protein Albumin Ouqad-3-Ckeiltqzy Pzxmk-6-Xqgllrwbp PEP Interpretation Triglycerides LDL Cholesterol Direct HDL Cholesterol Free T4 PTH Intact Urine WBC (Auto) Urine Creatinine Salicylates Acetaminophen Crossmatch 05/07/19 05/08/19 05/08/19 05:55 07:27 07:27 WBC 12.5 H RBC 3.50 L Hgb 9.4 L Hct 30.4 L MCV MCH 27 L MCHC 31 L RDW 17.2 H Plt Count Lymph % (Auto) Armstrong % (Auto) Eos % (Auto) 10.3 H Lymph # Armstrong # Eos # 1.3 H Seg Neutrophils % Seg Neuts % (Manual) Lymphocytes % (Manual) Monocytes % (Manual) Nucleated RBC % Seg Neutrophils # 8.7 H Seg Neutrophils # Man Lymphocytes # (Manual) Monocytes # (Manual) PT INR D-Dimer Heparin Anti-Xa Level POC ABG pH ABG pH POC ABG pCO2 POC ABG pO2 ABG pO2 ABG HCO3 ABG O2 Saturation ABG Base Excess ABG Hemoglobin Oxyhemoglobin Sodium Potassium 3.5 L Chloride Carbon Dioxide 20 L 20 L BUN Creatinine Glucose POC Glucose Lactic Acid Calcium 10.7 H 10.7 H Ionized Calcium Phosphorus Magnesium Iron TIBC Ferritin Total Bilirubin Direct Bilirubin AST ALT Alkaline Phosphatase Total Creatine Kinase CK-MB (CK-2) Troponin T C-Reactive Protein Serum Total Protein Total Protein Albumin 3.2 L 3.4 L Ntzvy-2-Hwkclnfgd Unuiu-4-Jumuzsxos PEP Interpretation Triglycerides LDL Cholesterol Direct HDL Cholesterol Free T4 PTH Intact Urine WBC (Auto) Urine Creatinine Salicylates Acetaminophen Crossmatch 05/09/19 05/09/19 05/10/19 05:41 05:41 06:42 WBC 11.7 H RBC 3.27 L Hgb 9.2 L Hct 27.9 L MCV MCH MCHC RDW 17.8 H Plt Count Lymph % (Auto) Armstrong % (Auto) Eos % (Auto) 14.3 H Lymph # Armstrong # Eos # 1.7 H Seg Neutrophils % Seg Neuts % (Manual) Lymphocytes % (Manual) Monocytes % (Manual) Nucleated RBC % Seg Neutrophils # Seg Neutrophils # Man Lymphocytes # (Manual) Monocytes # (Manual) PT INR 1.17 H D-Dimer Heparin Anti-Xa Level POC ABG pH ABG pH POC ABG pCO2 POC ABG pO2 ABG pO2 ABG HCO3 ABG O2 Saturation ABG Base Excess ABG Hemoglobin Oxyhemoglobin Sodium 136 L Potassium Chloride Carbon Dioxide 21 L BUN Creatinine Glucose POC Glucose Lactic Acid Calcium 10.6 H Ionized Calcium Phosphorus Magnesium Iron TIBC Ferritin Total Bilirubin Direct Bilirubin AST ALT Alkaline Phosphatase Total Creatine Kinase CK-MB (CK-2) Troponin T C-Reactive Protein Serum Total Protein Total Protein Albumin 3.3 L Yjrnu-6-Owhxpjibf Nzpzm-5-Ipxyeyvjt PEP Interpretation Triglycerides LDL Cholesterol Direct HDL Cholesterol Free T4 PTH Intact Urine WBC (Auto) Urine Creatinine Salicylates Acetaminophen Crossmatch 05/10/19 05/11/19 06:42 04:40 WBC RBC Hgb Hct MCV MCH MCHC RDW Plt Count Lymph % (Auto) Armstrong % (Auto) Eos % (Auto) Lymph # Armstrong # Eos # Seg Neutrophils % Seg Neuts % (Manual) Lymphocytes % (Manual) Monocytes % (Manual) Nucleated RBC % Seg Neutrophils # Seg Neutrophils # Man Lymphocytes # (Manual) Monocytes # (Manual) PT INR D-Dimer Heparin Anti-Xa Level POC ABG pH ABG pH POC ABG pCO2 POC ABG pO2 ABG pO2 ABG HCO3 ABG O2 Saturation ABG Base Excess ABG Hemoglobin Oxyhemoglobin Sodium Potassium Chloride Carbon Dioxide 21 L 20 L BUN Creatinine Glucose POC Glucose Lactic Acid Calcium Ionized Calcium Phosphorus Magnesium Iron TIBC Ferritin Total Bilirubin Direct Bilirubin AST ALT Alkaline Phosphatase Total Creatine Kinase CK-MB (CK-2) Troponin T C-Reactive Protein Serum Total Protein Total Protein Albumin Seudj-3-Fiwudtzfe Klezf-2-Njyljhmlm PEP Interpretation Triglycerides LDL Cholesterol Direct HDL Cholesterol Free T4 PTH Intact Urine WBC (Auto) Urine Creatinine Salicylates Acetaminophen Crossmatch Allied health notes reviewed: nursing
--- NOTE | 2019-05-12 12:10 | Progress Note ---
Assessment and Plan RUBEN - Resolved & stable fxn s/p transient HD, last HD 04/20/19 Lytes - Stable LUE Ulcer - Dressing per woundcare team A Fib - F/u per cardiology Renzo LE DVT - Anticoag per Med team Subjective Date of service: 05/12/19 Principal diagnosis: Anemia - DVT rt IJ, GI bleeding Interval history: Doing fine, No complaint Objective - Vital Signs Vital signs: Vital Signs - 12hr 05/12/19 05/12/19 05/12/19 05:27 10:53 11:09 Temperature 97.4 F L 98.0 F Pulse Rate 83 89 89 Respiratory 18 16 Rate Blood Pressure 130/86 127/78 127/78 O2 Sat by Pulse 98 98 Oximetry - General Appearance General appearance: other (Awake & comfortable) Neck: no JVD Respiratory: Present: Clear to Ascultation Cardiology: regular, S1S2 Gastrointestinal: normal Integumentary: other (Dressing LUE ulcer) Neurologic: no focal deficit Psychiatric: mood/affect appropriate - Lab 05/09/19 05:41 05/11/19 04:40 Most recent lab results ABG pH 7.388 pH Units (7.350-7.450) 04/06/19 05:20 ABG pCO2 38.5 mm Hg 04/06/19 05:20 ABG pO2 104.0 mm Hg (80.0-90.0) H 04/06/19 05:20 ABG HCO3 22.6 mmol/L (20.0-26.0) 04/06/19 05:20 ABG O2 Saturation 97.8 % (95.0-99.0) 04/06/19 05:20 Calcium 9.9 mg/dL (8.4-10.2) 05/11/19 04:40 Phosphorus 2.80 mg/dL (2.5-4.5) 05/03/19 05:37 Magnesium 2.20 mg/dL (1.7-2.3) 05/04/19 06:49 Urine Creatinine 106.6 mg/dL (0.1-20.0) H 03/17/19 16:05 Urine Sodium 95 mmol/L 03/17/19 16:05 Medications & Allergies - Medications Allergies/Adverse Reactions: Allergies No Known Allergies Allergy (Unverified 03/16/19 17:17) Home Medications: Home Medications Medication Instructions Recorded Confirmed Last Taken Type No Known Home Medications [No 04/28/19 04/28/19 Unknown History Reported Home Medications] Active Medications: Generic Name Dose Route Start Last Admin Trade Name Vicenta PRN Reason Stop Dose Admin Acetaminophen 650 mg 04/02/19 23:26 05/08/19 21:01 Tylenol PO 650 mg Q4H PRN Administration Pain, Mild (1-3),temp>100.5 Acetaminophen/Hydrocodone Bitart 1 each 05/02/19 11:50 05/12/19 11:13 [place] 5/325 PO 1 each Q6H PRN Administration Pain, Moderate (4-6) Al Hydrox/Mg Hydrox/Simethicone 15 ml 04/30/19 15:15 04/30/19 15:53 Alum-Mag Hydrox-Simeth 238-809-34vx/5ml PO 15 ml Q4H PRN Administration Indigestion Albuterol 2.5 mg 03/29/19 13:08 Proventil IH Q4HRT PRN Shortness Of Breath Lipase/Protease/Amylase 1 each 04/20/19 13:17 Pancreaze 10,500 Unit FEEDTUBE PRN PRN For Clogged Feeding Tube Bacitracin 1 applic 04/17/19 08:00 Antibiotic Oint TP Q4H PRN upper lip sore/open Dextrose 50 gm 04/17/19 08:00 D50w (25gm) Vial IV Q1H PRN Hypoglycemia Gabapentin 100 mg 05/11/19 14:00 05/12/19 05:48 Gabapentin PO 100 mg Q8HR PAOLO Administration Hydralazine HCl 20 mg 04/14/19 03:00 04/14/19 03:11 Apresoline IV 20 mg Q4H PRN Administration hypertemsion Hydrophilic Ointment 1 applic 03/16/19 15:50 04/19/19 18:24 Vaseline Lip Therapy TP 1 applic Q2HR PRN Administration Dry Lips Sodium Chloride 100 mls @ 999 mls/hr 04/20/19 08:41 Nacl 0.9% IV NEYMAR PRN Hypotension Sodium Chloride 500 mls @ 50 mls/hr 05/10/19 08:00 05/11/19 06:55 Nacl 0.9% 500 Ml IV 50 mls/hr DIRECT PAOLO Administration Melatonin 5 mg 04/26/19 21:00 05/09/19 23:41 Melatonin PO 5 mg QHS PRN Administration Sleep Metoprolol Succinate 50 mg 05/10/19 10:00 05/12/19 11:09 Metoprolol Xl PO 50 mg QDAY PAOLO Administration Multi-Ingred Cream/Lotion/Oil/Oint 1 applic 03/16/19 15:50 03/19/19 20:10 Artificial Tears Ophth Oint OU 1 applic Q4HR PRN Administration Dry Eye(s) Pantoprazole Sodium 40 mg 05/07/19 22:00 05/12/19 11:10 Protonix PO 40 mg BID PAOLO Administration Simple Syrup 15 ml 04/20/19 13:17 Simple Syrup FEEDTUBE PRN PRN Hypoglycemia Simple Syrup 30 ml 04/20/19 13:29 05/01/19 17:57 Simple Syrup FEEDTUBE 30 ml PRN PRN Administration Hypoglycemia Sodium Bicarbonate 325 mg 04/20/19 13:17 04/27/19 11:03 Sodium Bicarbonate FEEDTUBE 325 mg PRN PRN Administration For Clogged Feeding Tube
[2019-05-13] MEDS: HYDROcodone/ACETAMINOPHEN 5-325 MG TAB PO PRN ×4 (00:13→23:03)
[2019-05-13] MEDS: MELATONIN 5 MG TAB PO PRN ×2 (00:17→23:03)
[2019-05-13] MEDS: GABAPENTIN 100 MG CAP PO SCH ×3 (05:38→21:37)
[2019-05-13 09:22] LABS: Hemoglobin 9.5 gm/dl (11.8-15.2); Mean Corpuscular HGB Conc 32 % (32-34); Mean Corpuscular Volume 86 fl (84-94); Platelet Count 227 K/mm3 (140-440); Red Blood Count 3.48 M/mm3 (3.65-5.03)
[2019-05-13 09:41] LABS: Alanine Aminotransferase 12 units/L (7-56); Albumin 3.3 g/dL (3.9-5); BUN/Creatinine Ratio 14; Blood Urea Nitrogen 15 mg/dL (9-20); Calcium 9.9 mg/dL (8.4-10.2); Hemolysis Index 3
[2019-05-13] MEDS: METOPROLOL SUCCINATE XL 50 MG TAB PO SCH (10:07)
[2019-05-13] MEDS: PANTOPRAZOLE 40 MG TAB PO SCH ×2 (10:07→21:37)
--- NOTE | 2019-05-13 10:07 | Progress Note ---
Assessment and Plan RUBEN - Resolved with stable BUN/Cr Lytes - F/u mild acidosis on IVF LUE Ulcer - Dressing per woundcare team A Fib - F/u per cardiology Renzo LE DVT - Anticoag per Med team Subjective Date of service: 05/13/19 Principal diagnosis: Anemia - DVT rt IJ, GI bleeding Interval history: No change Objective - Vital Signs Vital signs: Vital Signs - 12hr 05/12/19 05/13/19 05/13/19 23:22 00:13 05:21 Temperature 98.3 F 97.5 F L Pulse Rate 81 78 Respiratory 18 16 18 Rate Blood Pressure 128/86 124/83 O2 Sat by Pulse 97 97 Oximetry - General Appearance General appearance: other (Awake & responsive) Neck: no JVD Respiratory: Present: Clear to Ascultation Cardiology: regular, S1S2 Gastrointestinal: normal Integumentary: other (Ulcer LUE) Neurologic: no focal deficit - Lab 05/13/19 08:32 05/13/19 08:32 Most recent lab results ABG pH 7.388 pH Units (7.350-7.450) 04/06/19 05:20 ABG pCO2 38.5 mm Hg 04/06/19 05:20 ABG pO2 104.0 mm Hg (80.0-90.0) H 04/06/19 05:20 ABG HCO3 22.6 mmol/L (20.0-26.0) 04/06/19 05:20 ABG O2 Saturation 97.8 % (95.0-99.0) 04/06/19 05:20 Calcium 9.9 mg/dL (8.4-10.2) 05/13/19 08:32 Phosphorus 3.00 mg/dL (2.5-4.5) 05/13/19 08:32 Magnesium 1.60 mg/dL (1.7-2.3) L 05/13/19 08:32 Urine Creatinine 106.6 mg/dL (0.1-20.0) H 03/17/19 16:05 Urine Sodium 95 mmol/L 03/17/19 16:05 Medications & Allergies - Medications Allergies/Adverse Reactions: Allergies No Known Allergies Allergy (Unverified 03/16/19 17:17) Home Medications: Home Medications Medication Instructions Recorded Confirmed Last Taken Type No Known Home Medications [No 04/28/19 04/28/19 Unknown History Reported Home Medications] Active Medications: Generic Name Dose Route Start Last Admin Trade Name Freq PRN Reason Stop Dose Admin Acetaminophen 650 mg 04/02/19 23:26 05/08/19 21:01 Tylenol PO 650 mg Q4H PRN Administration Pain, Mild (1-3),temp>100.5 Acetaminophen/Hydrocodone Bitart 1 each 05/02/19 11:50 05/13/19 00:13 [place] 5/325 PO 1 each Q6H PRN Administration Pain, Moderate (4-6) Al Hydrox/Mg Hydrox/Simethicone 15 ml 04/30/19 15:15 04/30/19 15:53 Alum-Mag Hydrox-Simeth 800-622-91rv/5ml PO 15 ml Q4H PRN Administration Indigestion Albuterol 2.5 mg 03/29/19 13:08 Proventil IH Q4HRT PRN Shortness Of Breath Lipase/Protease/Amylase 1 each 04/20/19 13:17 Pancreazapril [place] 10,500 Unit FEEDTUBE PRN PRN For Clogged Feeding Tube Bacitracin 1 applic 04/17/19 08:00 Antibiotic Oint TP Q4H PRN upper lip sore/open Dextrose 50 gm 04/17/19 08:00 D50w (25gm) Vial IV Q1H PRN Hypoglycemia Gabapentin 100 mg 05/11/19 14:00 05/13/19 05:38 Gabapentin PO 100 mg Q8HR PAOLO Administration Hydralazine HCl 20 mg 04/14/19 03:00 04/14/19 03:11 Apresoline IV 20 mg Q4H PRN Administration hypertemsion Hydrophilic Ointment 1 applic 03/16/19 15:50 04/19/19 18:24 Vaseline Lip Therapy TP 1 applic Q2HR PRN Administration Dry Lips Sodium Chloride 100 mls @ 999 mls/hr 04/20/19 08:41 Nacl 0.9% IV NEYMAR PRN Hypotension Sodium Chloride 500 mls @ 50 mls/hr 05/10/19 08:00 05/11/19 06:55 Nacl 0.9% 500 Ml IV 50 mls/hr DIRECT PAOLO Administration Melatonin 5 mg 04/26/19 21:00 05/13/19 00:17 Melatonin PO 5 mg QHS PRN Administration Sleep Metoprolol Succinate 50 mg 05/10/19 10:00 05/12/19 11:09 Metoprolol Xl PO 50 mg QDAY PAOLO Administration Multi-Ingred Cream/Lotion/Oil/Oint 1 applic 03/16/19 15:50 03/19/19 20:10 Artificial Tears Ophth Oint OU 1 applic Q4HR PRN Administration Dry Eye(s) Pantoprazole Sodium 40 mg 05/07/19 22:00 05/12/19 22:59 Protonix PO 40 mg BID PAOLO Administration Simple Syrup 15 ml 04/20/19 13:17 Simple Syrup FEEDTUBE PRN PRN Hypoglycemia Simple Syrup 30 ml 04/20/19 13:29 05/01/19 17:57 Simple Syrup FEEDTUBE 30 ml PRN PRN Administration Hypoglycemia Sodium Bicarbonate 325 mg 04/20/19 13:17 04/27/19 11:03 Sodium Bicarbonate FEEDTUBE 325 mg PRN PRN Administration For Clogged Feeding Tube
[2019-05-13 10:29] LABS: Band Neutrophils # (Manual) 0.1 K/mm3; Total Cells Counted 100
[2019-05-13 10:32] LABS: Large Platelets Few; Platelet Estimate Consistent w Auto; Tear Drop Cells Few
--- NOTE | 2019-05-13 11:49 | Progress Note ---
Assessment and Plan Assessment and plan: Peripheral neuropathy. Neurology following. Patient will need EMG/MCV to rule out axonal versus demyelinating disease. Workup can be done as an outpatient. Bilateral lower extremity DVTs. Patient will be scheduled for placement of IVC filter. 3 months after discharge, the patient will need to be scheduled for IVC filter removal with repeat ultrasound at that time to evaluate the patient's bilateral lower extremity DVTs. - Acute hypoxic respiratory failure. Was intubated, but now extubated. Now on Room air. Continue BiPAP as clinically indicated. - Atrial fibrillation. Resolved. Continue Metoprolol. Cardiology following. No recurrence of AFib or VT noted for several weeks since resolution of multiple metabolic derangements and thus no plans for initiation of systemic AC or AICD implantation at this time. - Abnormal Lexiscan stress with ejection fraction of 45% S/p LHC this AM which showed normal coronaries, normal EF. - Acute blood loss anemia. Patient with GI bleed secondary to peptic ulcer disease. EGD completed per GI. Continue PRBCs as needed. - GI bleed/peptic ulcer disease. Continue PPI. Transfuse PRBCs as needed. - Sepsis/septic shock. Resolved. Continue to monitor off antibiotics - Ischemic hepatitis/shock liver. Resolved. Viral hepatitis panel negative. - Acute kidney injury. Resolved. Patient's last hemodialysis 04/20/19. Continue to monitor BMP. Avoid nephrotoxic agents. - Toxic metabolic encephalopathy. Resolved. - Swelling both upper ext L>R Doppler US : no DVT LUE - Hypokalemia. Replete potassium as needed. - Thrombocytopenia. Etiology likely secondary to sepsis. Resolved. - Rhabdomyolysis. CK normalized. Full code status Disposition. Awaiting for arrangements for SNF in [place] History Interval history: Patient complaining of bilateral lower extremity numbness. Hospitalist Physical - Constitutional Vitals: Temp Pulse Resp BP Pulse Ox 97.5 F L 84 18 117/77 97 05/13/19 05:21 05/13/19 10:07 05/13/19 05:21 05/13/19 10:07 05/13/19 05:21 General appearance: Present: no acute distress - EENT Eyes: Present: PERRL, EOM intact ENT: hearing intact, clear oral mucosa, dentition normal - Neck Neck: Present: supple, normal ROM - Respiratory Respiratory effort: normal Respiratory: bilateral: CTA - Cardiovascular Rhythm: regular Heart Sounds: Present: S1 & S2. Absent: gallop, rub - Extremities Extremities: no ischemia, No edema, Full ROM - Abdominal General gastrointestinal: soft, non-tender, non-distended, normal bowel sounds - Integumentary Integumentary: Present: clear, warm, dry - Neurologic Neurologic: CNII-XII intact, moves all extremities Results - Labs CBC & Chem 7: 05/13/19 08:32 05/13/19 08:32 Labs: Laboratory Last Values WBC 11.8 K/mm3 (4.5-11.0) H 05/13/19 08:32 RBC 3.48 M/mm3 (3.65-5.03) L 05/13/19 08:32 Hgb 9.5 gm/dl (11.8-15.2) L 05/13/19 08:32 Hct 30.0 % (35.5-45.6) L 05/13/19 08:32 MCV 86 fl (84-94) 05/13/19 08:32 MCH 27 pg (28-32) L 05/13/19 08:32 MCHC 32 % (32-34) 05/13/19 08:32 RDW 18.0 % (13.2-15.2) H 05/13/19 08:32 Plt Count 227 K/mm3 (140-440) 05/13/19 08:32 Lymph % (Auto) 17.9 % (13.4-35.0) 05/09/19 05:41 [place] % (Auto) 5.6 % (0.0-7.3) 05/09/19 05:41 Eos % (Auto) [employer] 05/13/19 08:32 Baso % (Auto) 0.7 % (0.0-1.8) 05/09/19 05:41 Lymph # 2.1 K/mm3 (1.2-5.4) 05/09/19 05:41 [place] # 0.7 K/mm3 (0.0-0.8) 05/09/19 05:41 Eos # 1.7 K/mm3 (0.0-0.4) H 05/09/19 05:41 Baso # 0.1 K/mm3 (0.0-0.1) 05/09/19 05:41 Add Manual Diff Complete 05/13/19 08:32 Total Counted 100 05/13/19 08:32 Seg Neutrophils % 61.5 % (40.0-70.0) 05/09/19 05:41 Seg Neuts % (Manual) 73.0 % (40.0-70.0) H 05/13/19 08:32 Band Neutrophils % 1.0 % 05/13/19 08:32 Lymphocytes % (Manual) 11.0 % (13.4-35.0) L 05/13/19 08:32 Reactive Lymphs % (Man) 0 % 05/13/19 08:32 Monocytes % (Manual) 1.0 % (0.0-7.3) 05/13/19 08:32 Eosinophils % (Manual) 12.0 % (0.0-4.3) H 05/13/19 08:32 Basophils % (Manual) 1.0 % (0.0-1.8) 05/13/19 08:32 Metamyelocytes % 1.0 % 05/13/19 08:32 Myelocytes % 0 % 05/13/19 08:32 Promyelocytes % 0 % 05/13/19 08:32 Blast Cells % 0 % 05/13/19 08:32 Nucleated RBC % Not Reportable 05/13/19 08:32 Seg Neutrophils # 7.2 K/mm3 (1.8-7.7) 05/09/19 05:41 Seg Neutrophils # Man 8.6 K/mm3 (1.8-7.7) H 05/13/19 08:32 Band Neutrophils # 0.1 K/mm3 05/13/19 08:32 Lymphocytes # (Manual) 1.3 K/mm3 (1.2-5.4) 05/13/19 08:32 Abs React Lymphs (Man) 0.0 K/mm3 05/13/19 08:32 Monocytes # (Manual) 0.1 K/mm3 (0.0-0.8) 05/13/19 08:32 Eosinophils # (Manual) 1.4 K/mm3 (0.0-0.4) H 05/13/19 08:32 Basophils # (Manual) 0.1 K/mm3 (0.0-0.1) 05/13/19 08:32 Metamyelocytes # 0.1 K/mm3 05/13/19 08:32 Myelocytes # 0.0 K/mm3 05/13/19 08:32 Promyelocytes # 0.0 K/mm3 05/13/19 08:32 Blast Cells # 0.0 K/mm3 05/13/19 08:32 WBC Morphology Not Reportable 05/13/19 08:32 Hypersegmented Neuts Not Reportable 05/13/19 08:32 Hyposegmented Neuts Not Reportable 05/13/19 08:32 Hypogranular Neuts Not Reportable 05/13/19 08:32 Smudge Cells Not Reportable 05/13/19 08:32 Toxic Granulation Not Reportable 05/13/19 08:32 Toxic Vacuolation Not Reportable 05/13/19 08:32 Dohle Bodies Not Reportable 05/13/19 08:32 Pelger-Huet Anomaly Not Reportable 05/13/19 08:32 Joyce Rods Not Reportable 05/13/19 08:32 Platelet Estimate Consistent w auto 05/13/19 08:32 Clumped Platelets Not Reportable 05/13/19 08:32 Plt Clumps, EDTA Not Reportable 05/13/19 08:32 Large Platelets Few 05/13/19 08:32 Giant Platelets Not Reportable 05/13/19 08:32 Platelet Satelliting Not Reportable 05/13/19 08:32 Plt Morphology Comment Not Reportable 05/13/19 08:32 RBC Morphology Not Reportable 05/13/19 08:32 Dimorphic RBCs Not Reportable 05/13/19 08:32 Polychromasia Not Reportable 05/13/19 08:32 Hypochromasia Not Reportable 05/13/19 08:32 Poikilocytosis Not Reportable 05/13/19 08:32 Anisocytosis Not Reportable 05/13/19 08:32 Microcytosis Not Reportable 05/13/19 08:32 Macrocytosis Not Reportable 05/13/19 08:32 Spherocytes Not Reportable 05/13/19 08:32 Pappenheimer Bodies Not Reportable 05/13/19 08:32 Sickle Cells Not Reportable 05/13/19 08:32 Target Cells Not Reportable 05/13/19 08:32 Tear Drop Cells Few 05/13/19 08:32 Ovalocytes Not Reportable 05/13/19 08:32 Stomatocytes Few 03/26/19 Unknown Helmet Cells Not Reportable 05/13/19 08:32 [place] Bodies Not Reportable 05/13/19 08:32 [place] Rings Not Reportable 05/13/19 08:32 [place] Cells Not Reportable 05/13/19 08:32 Bite Cells Not Reportable 05/13/19 08:32 Crenated Cell Not Reportable 05/13/19 08:32 Elliptocytes Few 05/13/19 08:32 Acanthocytes (Spur) Not Reportable 05/13/19 08:32 Rouleaux Not Reportable 05/13/19 08:32 Hemoglobin C Crystals Not Reportable 05/13/19 08:32 Schistocytes Not Reportable 05/13/19 08:32 Malaria parasites Not Reportable 05/13/19 08:32 Phil Bodies Not Reportable 05/13/19 08:32 Hem Pathologist Commnt No 05/13/19 08:32 PT 14.8 Sec. (12.2-14.9) 05/10/19 06:42 INR 1.17 (0.87-1.13) H 05/10/19 06:42 APTT 27.9 Sec. (24.2-36.6) 05/10/19 06:42 Fibrinogen 226 mg/dl (211-480) 03/28/19 12:00 D-Dimer 4845.98 ng/mlDDU (0-234) H 03/28/19 12:00 Heparin Anti-Xa Level 0.23 U.I./ml (0.3-0.7) L 03/28/19 05:13 POC ABG pH 7.401 (7.35-7.45) 04/07/19 12:57 ABG pH 7.388 pH Units (7.350-7.450) 04/06/19 05:20 POC ABG pCO2 41.5 (35-45) 04/07/19 12:57 ABG pCO2 38.5 mm Hg 04/06/19 05:20 POC ABG pO2 107 (80-105) H 04/07/19 12:57 ABG pO2 104.0 mm Hg (80.0-90.0) H 04/06/19 05:20 POC ABG HCO3 25.7 (22-26 mml/L) 04/07/19 12:57 ABG HCO3 22.6 mmol/L (20.0-26.0) 04/06/19 05:20 POC ABG Total CO2 27 (23-27mmol/L) 04/07/19 12:57 POC ABG O2 Sat 98 04/07/19 12:57 ABG O2 Saturation 97.8 % (95.0-99.0) 04/06/19 05:20 ABG O2 Content 10.0 (0.0-44) 04/06/19 05:20 POC ABG Base Excess 1 ((-2) - (+3)mmol/L) 04/07/19 12:57 ABG Base Excess -2.1 mmol/L (-2.0-3.0) L 04/06/19 05:20 ABG Hemoglobin 7.3 gm/dl (14.0-18.0) L 04/06/19 05:20 ABG Carboxyhemoglobin 1.7 % (0.0-5.0) 04/06/19 05:20 ABG Methemoglobin 0.6 % (0.0-1.5) 04/06/19 05:20 Oxyhemoglobin 95.5 % (95.0-99.0) 04/06/19 05:20 FiO2 30 % 04/07/19 12:57 Sodium 139 mmol/L (137-145) 05/13/19 08:32 Potassium 4.0 mmol/L (3.6-5.0) 05/13/19 08:32 Chloride 106.5 mmol/L (98-107) 05/13/19 08:32 Carbon Dioxide 17 mmol/L (22-30) L 05/13/19 08:32 Anion Gap 20 mmol/L 05/13/19 08:32 BUN 15 mg/dL (9-20) 05/13/19 08:32 Creatinine 1.1 mg/dL (0.8-1.5) 05/13/19 08:32 Estimated GFR > 60 ml/min 05/13/19 08:32 BUN/Creatinine Ratio 14 % 05/13/19 08:32 Glucose 81 mg/dL (75-100) 05/13/19 08:32 POC Glucose 86 (70-105) 05/11/19 02:24 Lactic Acid 1.90 mmol/L (0.7-2.0) 03/21/19 21:31 Calcium 9.9 mg/dL (8.4-10.2) 05/13/19 08:32 Ionized Calcium 7.2 mg/dL (4.8-5.6) H* 04/29/19 14:14 Phosphorus 3.00 mg/dL (2.5-4.5) 05/13/19 08:32 Magnesium 1.60 mg/dL (1.7-2.3) L 05/13/19 08:32 Iron 26 ug/dL (49-181) L 04/02/19 05:03 TIBC 138 mcg/dL (250-450) L 04/02/19 05:03 Ferritin 607.0 ng/mL (13.0-400.0) H 04/02/19 05:03 Total Bilirubin 0.30 mg/dL (0.1-1.2) 05/13/19 08:32 Direct Bilirubin 0.4 mg/dL (0-0.2) H 03/31/19 08:20 Indirect Bilirubin 0.1 mg/dL 03/31/19 08:20 AST 11 units/L (5-40) 05/13/19 08:32 ALT 12 units/L (7-56) 05/13/19 08:32 Alkaline Phosphatase 77 units/L (35-129) 05/13/19 08:32 Total Creatine Kinase 62 units/L (55-170) 04/07/19 05:40 CK-MB (CK-2) 54.3 ng/mL (0.0-4.0) H 03/17/19 07:16 CK-MB (CK-2) Rel Index 0.0 (0-4) 03/17/19 07:16 Troponin T 0.058 ng/mL (0.00-0.029) H 03/17/19 07:16 C-Reactive Protein 7.10 mg/dL (0.00-1.30) H 04/17/19 04:15 Serum Total Protein 5.7 g/dL (6.1-8.1) L 05/01/19 06:52 Total Protein 6.9 g/dL (6.3-8.2) 05/13/19 08:32 Albumin 3.3 g/dL (3.9-5) L 05/13/19 08:32 Albumin/Globulin Ratio 0.9 % 05/13/19 08:32 Wqqzr-3-Dkqurvmnm 0.5 g/dL (0.2-0.3) H 05/01/19 06:52 Nigux-6-Tdthhbkgg 0.9 g/dL (0.5-0.9) 05/01/19 06:52 Beta Globulins 0.4 g/dL (0.2-0.5) 05/01/19 06:52 Gamma Globulins 1.0 g/dL (0.8-1.7) 05/01/19 06:52 Abnorm Protein Band 1 see below 05/01/19 06:52 PEP Interpretation see below H 05/01/19 06:52 Triglycerides 309 mg/dL (2-149) H 03/29/19 06:22 Cholesterol 88 mg/dL (50-199) 03/16/19 22:32 LDL Cholesterol Direct 10 mg/dL (50-130) L 03/16/19 22:32 HDL Cholesterol 7 mg/dL (40-59) L 03/16/19 22:32 Cholesterol/HDL Ratio 12.57 % 03/16/19 22:32 Vitamin B12 903.0 pg/mL (211-911) 04/02/19 05:03 25-OH Vitamin D Total See scanned result 04/29/19 14:14 25-Hydroxy Vitamin D2 <4 ng/mL 04/29/19 14:14 1,25 Dihydroxy Vit D2 <8 pg/mL 04/29/19 14:14 25-Hydroxy Vitamin D3 11 ng/mL 04/29/19 14:14 1,25 Dihydroxy Vit D3 <8 pg/mL 04/29/19 14:14 Folate 8.05 ng/mL (7.3-26.0) 04/02/19 05:03 Procalcitonin 25.42 ng/mL (<0.15) 03/27/19 19:21 TSH 2.200 mlU/mL (0.270-4.200) 03/16/19 17:05 Free T4 0.72 ng/dL (0.76-1.46) L 03/16/19 17:05 PTH Intact 8.83 pg/mL (15-65) L 04/29/19 14:14 Urine Color Yellow (Yellow) 04/15/19 22:11 Urine Turbidity Clear (Clear) 04/15/19 22:11 Urine pH 6.0 (5.0-7.0) 04/15/19 22:11 Ur Specific [place] 1.010 (1.003-1.030) 04/15/19 22:11 Urine Protein 30 mg/dl mg/dL (Negative) 04/15/19 22:11 Urine Glucose (UA) Neg mg/dL (Negative) 04/15/19 22:11 Urine Ketones Neg mg/dL (Negative) 04/15/19 22:11 Urine Blood Mod (Negative) 04/15/19 22:11 Urine Nitrite Neg (Negative) 04/15/19 22:11 Urine Bilirubin Neg (Negative) 04/15/19 22:11 Urine Urobilinogen < 2.0 mg/dL (<2.0) 04/15/19 22:11 Ur Leukocyte Esterase Neg (Negative) 04/15/19 22:11 Urine WBC (Auto) 4.0 /HPF (0.0-6.0) 04/15/19 22:11 Urine RBC (Auto) 2.0 /HPF (0.0-6.0) 04/15/19 22:11 U Epithel Cells (Auto) < 1.0 /HPF (0-13.0) 04/15/19 22:11 Amorphous Crystals 1+ 04/05/19 16:50 Urine Mucus Few /HPF 03/17/19 16:05 Urine Sperm 2+ /HPF ([employer] SUPER[employer]OR) 03/17/19 16:05 Urine Eosinophils None seen (None Seen) 03/17/19 16:05 Ur Random Creatinine See scanned result 05/01/19 06:15 U Random Total Protein See scanned result 05/01/19 06:15 Urine Creatinine 106.6 mg/dL (0.1-20.0) H 03/17/19 16:05 Protein/Creatinin Ratio See scanned result 05/01/19 06:15 Urine Sodium 95 mmol/L 03/17/19 16:05 U Abnormal Prot Band 1 See scanned result 05/01/19 06:15 U Abnormal Prot Band 2 See scanned result 05/01/19 06:15 U Abnormal Prot Band 3 See scanned result 05/01/19 06:15 Vancomycin Trough 11.5 ug/mL (5.0-20.0) 03/18/19 13:19 Random Vancomycin 10.8 ug/mL (0-40.0) 04/14/19 03:55 Salicylates < 0.3 mg/dL (2.8-20.0) L 03/16/19 17:05 Urine Opiates Screen Presumptive negative 03/17/19 16:05 Urine Methadone Screen Presumptive negative 03/17/19 16:05 Acetaminophen < 5.0 ug/mL (10.0-30.0) L 03/16/19 17:05 Ur Barbiturates Screen Presumptive negative 03/17/19 16:05 Ur Phencyclidine Scrn Presumptive negative 03/17/19 16:05 Ur Amphetamines Screen Presumptive negative 03/17/19 16:05 U Benzodiazepines Scrn Presumptive positive 03/17/19 16:05 Urine Cocaine Screen Presumptive negative 03/17/19 16:05 U Marijuana (THC) Screen Presumptive negative 03/17/19 16:05 Drugs of Abuse Note Disclamer 03/17/19 16:05 Plasma/Serum Alcohol < 0.01 % (0-0.07) 03/16/19 17:05 Immunofix Electrophor see below 05/01/19 06:52 LANDY Screen Negative (Negative) 04/17/19 04:15 Proteinase 3 (PR3) Ab <1.0 AI (<1.0) 04/21/19 04:22 Myeloperoxidase Ab <1.0 AI (<1.0) 04/21/19 04:22 Glomerular Base Mem IgG See scanned result 04/21/19 04:22 Complement C3 150 mg/dL (82-185) 04/17/19 04:15 Complement C4 37 mg/dL (15-53) 04/17/19 04:15 Hepatitis A IgM Ab Non-reactive (NonReactive) 04/18/19 10:02 Hep Bs Antigen Non-reactive (Negative) 04/18/19 10:02 Hep B Core IgM Ab Non-reactive (NonReactive) 04/18/19 10:02 Hepatitis C Antibody Non-reactive (NonReactive) 04/18/19 10:02 HIV 1&2 Antibody Rapid Non react (Non React) 03/17/19 11:52 HIV P24 Antigen Non react (Non React) 03/17/19 11:52 Influenza A (Rapid) Negative (Negative) 03/17/19 17:00 Influenza B (Rapid) Negative (Negative) 03/17/19 17:00 Group A Strep Rapid Negative (Negative) 03/17/19 17:00 Miscellaneous Test Flexitest 1 03/21/19 12:00 Blood Type A POSITIVE 04/02/19 16:34 Antibody Screen Negative 04/02/19 16:34 Crossmatch See Detail 04/02/19 16:34 Active Medications - Current Medications Current Medications: Generic Name Dose Route Start Last Admin Trade Name Freq PRN Reason Stop Dose Admin Acetaminophen 650 mg 04/02/19 23:26 05/08/19 21:01 Tylenol PO 650 mg Q4H PRN Administration Pain, Mild (1-3),temp>100.5 Acetaminophen/Hydrocodone Bitart 1 each 05/02/19 11:50 05/13/19 10:11 [place] 5/325 PO 1 each Q6H PRN Administration Pain, Moderate (4-6) Al Hydrox/Mg Hydrox/Simethicone 15 ml 04/30/19 15:15 04/30/19 15:53 Alum-Mag Hydrox-Simeth 163-149-10ag/5ml PO 15 ml Q4H PRN Administration Indigestion Albuterol 2.5 mg 03/29/19 13:08 Proventil IH Q4HRT PRN Shortness Of Breath Lipase/Protease/Amylase 1 each 04/20/19 13:[address] 10,500 Unit FEEDTUBE PRN PRN For Clogged Feeding Tube Bacitracin 1 applic 04/17/19 08:00 Antibiotic Oint TP Q4H PRN upper lip sore/open Dextrose 50 gm 04/17/19 08:00 D50w (25gm) Vial IV Q1H PRN Hypoglycemia Gabapentin 100 mg 05/11/19 14:00 05/13/19 05:38 Gabapentin PO 100 mg Q8HR PAOLO Administration Hydralazine HCl 20 mg 04/14/19 03:00 04/14/19 03:11 Apresoline IV 20 mg Q4H PRN Administration hypertemsion Hydrophilic Ointment 1 applic 03/16/19 15:50 04/19/19 18:24 Vaseline Lip Therapy TP 1 applic Q2HR PRN Administration Dry Lips Sodium Chloride 100 mls @ 999 mls/hr 04/20/19 08:41 Nacl 0.9% IV NEYMAR PRN Hypotension Sodium Chloride 500 mls @ 50 mls/hr 05/10/19 08:00 05/11/19 06:55 Nacl 0.9% 500 Ml IV 50 mls/hr DIRECT PAOLO Administration Melatonin 5 mg 04/26/19 21:00 05/13/19 00:17 Melatonin PO 5 mg QHS PRN Administration Sleep Metoprolol Succinate 50 mg 05/10/19 10:00 05/13/19 10:07 Metoprolol Xl PO 50 mg QDAY PAOLO Administration Multi-Ingred Cream/Lotion/Oil/Oint 1 applic 03/16/19 15:50 03/19/19 20:10 Artificial Tears Ophth Oint OU 1 applic Q4HR PRN Administration Dry Eye(s) Pantoprazole Sodium 40 mg 05/07/19 22:00 05/13/19 10:07 Protonix PO 40 mg BID PAOLO Administration Simple Syrup 15 ml 04/20/19 13:17 Simple Syrup FEEDTUBE PRN PRN Hypoglycemia Simple Syrup 30 ml 04/20/19 13:29 05/01/19 17:57 Simple Syrup FEEDTUBE 30 ml PRN PRN Administration Hypoglycemia Sodium Bicarbonate 325 mg 04/20/19 13:17 04/27/19 11:03 Sodium Bicarbonate FEEDTUBE 325 mg PRN PRN Administration For Clogged Feeding Tube Nutrition/Malnutrition Assess - Dietary Evaluation Nutrition/Malnutrition Findings: Nutrition Notes Start: 03/17/19 14:22 Freq: Status: Active Protocol: Document 05/07/19 14:38 JOVANNI (Rec: 05/07/19 14:46 JOVANNI [email or web address]) Nutrition Notes Initial or Follow up Reassessment Current Diagnosis Acute Kidney Injury,Sepsis Other Pertinent Diagnosis GIB, on HD, afib Current Diet Regular + Ensure Clear daily Labs/Tests K 3.5 Ca 10.7 Pertinent Medications Reviewed Height 6 ft Weight 146.8 kg [place] Body Weight (kg) 80.90 BMI 43.9 Subjective/Other Information No meal intakes documented. Pt reports "pretty good" appetite. He is eating at least 50% of meals and drinks ONS. Burn Absent Trauma Absent #1 Nutrition Diagnosis Inadequate oral intake As Evidenced by Signs and Symptoms pt reports good appetite and is consuming at least 50% of meals Diagnosis Progress(for reassessment Improved documentation) Is patient on ventilator? No Is Patient Ambulatory and/or Out of Bed No REE-(Cool[place]-St. Jeor-confined to bed) 2871.756 Kcal/Kg value to use for calculation 14 Approximate Energy Requirements Using 5 kcal/Kg Calculation Used for Recommendations Kcal/kg Additional Notes Pro needs >1.2g/kg adjBW: > 137g/day Fluid needs 1ml/kcal Nutrition Intervention Change Diet Order: Continue current diet order Add Supplement/Snack (indicate name/kcal Ensure Clear once daily /protein ) Provides kCal: 240 Provides Protein (gm) 8 Goal #1 Meet at least 75% of kcal/PRO needs via PO and ONS intakes Follow-Up By: 05/14/19 Additional Comments F/U: stable intakes (meals/ONS ), wt
[2019-05-14] MEDS: GABAPENTIN 100 MG CAP PO SCH ×3 (06:31→21:50)
--- NOTE | 2019-05-14 08:22 | Progress Note ---
Assessment and Plan Severe sepsis with shock. Right axilla abscess versus localized pannus/fatty collection. Acute hypoxemic respiratory failure, on mechanical ventilator support. Likely aspiration pneumonia, bilateral. Morbid obesity. Rhabdomyolysis. Acute kidney injury. Leukocytosis. Morbid obesity. Metabolic acidosis. Lactic acidosis. Hypomagnesemia. Elevated serum transaminases/possible shock liver. Acute encephalopathy, toxic metabolic versus anoxic - continue prn BIPAP for increased work of breathing - continue cardiac work-up - will need outpatient PSG - continue aggressive PT/OT as tolerated - continue ST evaluation and advance diet as tolerated - continue prn albuterol treatments - prn oxygen to keep O2 sats > 90% - azotemia per nephrology (non-oliguric) - prn supportive blood transfusions to keep serum Hb > 7.0 - Monitor hemodynamics closely - Transfuse PRBC's to keep HgB > 7g/dL - continue mobility protocols and off loading as tolerated for pressure ulcer prophylaxis - continue to avoid nephrotoxins, adjust all medications for GFR and CRCL - continue GI & VTE prophylaxis with - accuchecks with glycemic control per SSI for target BG of 140-180 mg/dl acutely - continue other care per attending / other consultants ... re-evaluate in am & prn Subjective Date of service: 05/14/19 Principal diagnosis: Septic Shock; Ac. hypoxemic resp failure; Renzo. PNA; Rhabdomyolysis; RUBEN Interval history: Patient is seen today for: Severe sepsis with shock; Acute hypoxemic respiratory failure; Aspiration pneumonia; Morbid obesity; Rhabdomyolysis; Acute kidney injury; Morbid obesity; Elevated serum transaminases/possible shock liver; Acute encephalopathy (Toxic/Met) Seen and examined at bedside; 24hour events reviewed; nursing and respiratory care staff consulted; no adverse overnight events reported to me; resting peacefully in bed; Objective Vital Signs - 12hr 05/13/19 05/13/19 05/14/19 22:00 23:34 04:50 Temperature 98.7 F 97.6 F Pulse Rate 79 77 Respiratory 18 17 20 Rate Blood Pressure 115/74 126/86 O2 Sat by Pulse 95 96 Oximetry Constitutional: no acute distress, other (middle aged morbidly obese CM, normocephalic with mildly incresed respiratory effort at rest) Eyes: non-icteric ENT: oropharynx moist, other (extubated) Neck: supple, no lymphadenopathy, no JVD, other (large neck circumference) Effort: mildly labored Ascultation: Bilateral: diminished breath sounds, rales, rhonchi (scant) Percussion: Bilateral: not dull Cardiovascular: regular rate and rhythm, other ( S1,S2) Gastrointestinal: normoactive bowel sounds, soft, non-tender, non-distended, other (obese) Integumentary: normal Extremities: no cyanosis, pink and warm, pulses normal, no ischemia or petechiae Neurologic: normal mental status, non-focal exam (grossly), pupils equal and r ound, CN II-XII normal, other (very weak) Psychiatric: mood appropriate, affect normal CBC and BMP: 05/13/19 08:32 05/13/19 08:32 ABG, PT/INR, D-dimer: ABG POC ABG pH 7.401 (7.35-7.45) 04/07/19 12:57 ABG pH 7.388 pH Units (7.350-7.450) 04/06/19 05:20 POC ABG pCO2 41.5 (35-45) 04/07/19 12:57 ABG pCO2 38.5 mm Hg 04/06/19 05:20 POC ABG pO2 107 (80-105) H 04/07/19 12:57 ABG pO2 104.0 mm Hg (80.0-90.0) H 04/06/19 05:20 POC ABG HCO3 25.7 (22-26 mml/L) 04/07/19 12:57 POC ABG Total CO2 27 (23-27mmol/L) 04/07/19 12:57 POC ABG O2 Sat 98 04/07/19 12:57 ABG O2 Saturation 97.8 % (95.0-99.0) 04/06/19 05:20 PT/INR, D-dimer PT 14.8 Sec. (12.2-14.9) 05/10/19 06:42 INR 1.17 (0.87-1.13) H 05/10/19 06:42 D-Dimer 4845.98 ng/mlDDU (0-234) H 03/28/19 12:00 Abnormal lab findings: Abnormal Labs 03/16/19 03/16/19 03/16/19 15:32 16:03 16:05 WBC 27.0 H RBC 5.55 H Hgb 15.7 H Hct 47.1 H MCV MCH MCHC RDW Plt Count 75 L Lymph % (Auto) [place] % (Auto) Eos % (Auto) Lymph # [place] # Eos # Seg Neutrophils % Seg Neuts % (Manual) 85.0 H Lymphocytes % (Manual) 2.0 L Monocytes % (Manual) Eosinophils % (Manual) Nucleated RBC % Seg Neutrophils # Seg Neutrophils # Man 23.0 H Lymphocytes # (Manual) 0.5 L Monocytes # (Manual) Eosinophils # (Manual) PT INR D-Dimer Heparin Anti-Xa Level POC ABG pH ABG pH POC ABG pCO2 POC ABG pO2 ABG pO2 ABG HCO3 ABG O2 Saturation ABG Base Excess ABG Hemoglobin Oxyhemoglobin Sodium 127 L Potassium Chloride 87.8 L Carbon Dioxide 17 L BUN 49 H Creatinine 5.8 H Glucose 150 H POC Glucose 118 H Lactic Acid Calcium 6.6 L Ionized Calcium Phosphorus Magnesium 1.10 L Iron TIBC Ferritin Total Bilirubin Direct Bilirubin AST ALT Alkaline Phosphatase Total Creatine Kinase 10835 H CK-MB (CK-2) Troponin T C-Reactive Protein Serum Total Protein Total Protein Albumin Ewoxd-9-Vosnaujsl Qzqit-9-Meaerlmbe PEP Interpretation Triglycerides LDL Cholesterol Direct HDL Cholesterol Free T4 PTH Intact Urine WBC (Auto) Urine Creatinine Salicylates Acetaminophen Crossmatch 03/16/19 03/16/19 03/16/19 16:59 17:05 17:05 WBC RBC Hgb Hct MCV MCH MCHC RDW Plt Count Lymph % (Auto) [place] % (Auto) Eos % (Auto) Lymph # [place] # Eos # Seg Neutrophils % Seg Neuts % (Manual) Lymphocytes % (Manual) Monocytes % (Manual) Eosinophils % (Manual) Nucleated RBC % Seg Neutrophils # Seg Neutrophils # Man Lymphocytes # (Manual) Monocytes # (Manual) Eosinophils # (Manual) PT INR D-Dimer Heparin Anti-Xa Level POC ABG pH 7.297 L ABG pH POC ABG pCO2 33.0 L POC ABG pO2 ABG pO2 ABG HCO3 ABG O2 Saturation ABG Base Excess ABG Hemoglobin Oxyhemoglobin Sodium Potassium Chloride Carbon Dioxide BUN Creatinine Glucose POC Glucose Lactic Acid Calcium Ionized Calcium Phosphorus Magnesium Iron TIBC Ferritin Total Bilirubin Direct Bilirubin AST ALT Alkaline Phosphatase Total Creatine Kinase 15260 H CK-MB (CK-2) 83.1 H Troponin T C-Reactive Protein Serum Total Protein Total Protein Albumin Yjrfa-9-Nnyxnfdpa Ezpck-3-Hbblavvux PEP Interpretation Triglycerides LDL Cholesterol Direct HDL Cholesterol Free T4 0.72 L PTH Intact Urine WBC (Auto) Urine Creatinine Salicylates Acetaminophen Crossmatch 03/16/19 03/16/19 03/16/19 17:05 17:05 17:05 WBC RBC Hgb Hct MCV MCH MCHC RDW Plt Count Lymph % (Auto) [place] % (Auto) Eos % (Auto) Lymph # [place] # Eos # Seg Neutrophils % Seg Neuts % (Manual) Lymphocytes % (Manual) Monocytes % (Manual) Eosinophils % (Manual) Nucleated RBC % Seg Neutrophils # Seg Neutrophils # Man Lymphocytes # (Manual) Monocytes # (Manual) Eosinophils # (Manual) PT INR D-Dimer Heparin Anti-Xa Level POC ABG pH ABG pH POC ABG pCO2 POC ABG pO2 ABG pO2 ABG HCO3 ABG O2 Saturation ABG Base Excess ABG Hemoglobin Oxyhemoglobin Sodium Potassium Chloride Carbon Dioxide BUN Creatinine Glucose POC Glucose Lactic Acid 5.10 H* Calcium Ionized Calcium Phosphorus Magnesium Iron TIBC Ferritin Total Bilirubin Direct Bilirubin AST ALT Alkaline Phosphatase Total Creatine Kinase CK-MB (CK-2) Troponin T C-Reactive Protein Serum Total Protein Total Protein Albumin Dxkdb-5-Exoxkyvqe Ygdsw-5-Zunjpsbda PEP Interpretation Triglycerides LDL Cholesterol Direct HDL Cholesterol Free T4 PTH Intact Urine WBC (Auto) Urine Creatinine Salicylates < 0.3 L Acetaminophen < 5.0 L Crossmatch 03/16/19 03/16/19 03/16/19 17:05 17:05 20:35 WBC RBC Hgb Hct MCV MCH MCHC RDW Plt Count Lymph % (Auto) [place] % (Auto) Eos % (Auto) Lymph # [place] # Eos # Seg Neutrophils % Seg Neuts % (Manual) Lymphocytes % (Manual) Monocytes % (Manual) Eosinophils % (Manual) Nucleated RBC % Seg Neutrophils # Seg Neutrophils # Man Lymphocytes # (Manual) Monocytes # (Manual) Eosinophils # (Manual) PT 15.9 H INR 1.30 H D-Dimer Heparin Anti-Xa Level POC ABG pH ABG pH POC ABG pCO2 POC ABG pO2 ABG pO2 ABG HCO3 ABG O2 Saturation ABG Base Excess ABG Hemoglobin Oxyhemoglobin Sodium Potassium Chloride Carbon Dioxide BUN Creatinine Glucose POC Glucose Lactic Acid 3.30 H* Calcium Ionized Calcium Phosphorus Magnesium Iron TIBC Ferritin Total Bilirubin 6.20 H Direct Bilirubin 5.9 H AST 800 H ALT 120 H Alkaline Phosphatase Total Creatine Kinase CK-MB (CK-2) Troponin T C-Reactive Protein Serum Total Protein Total Protein 4.4 L Albumin 2.4 L Ssmlb-0-Aynqnedjo Uorue-7-Txbpzblyj PEP Interpretation Triglycerides LDL Cholesterol Direct HDL Cholesterol Free T4 PTH Intact Urine WBC (Auto) Urine Creatinine Salicylates Acetaminophen Crossmatch 03/16/19 03/16/19 03/16/19 21:45 22:32 Unknown WBC RBC Hgb Hct MCV MCH MCHC RDW Plt Count Lymph % (Auto) [place] % (Auto) Eos % (Auto) Lymph # [place] # Eos # Seg Neutrophils % Seg Neuts % (Manual) Lymphocytes % (Manual) Monocytes % (Manual) Eosinophils % (Manual) Nucleated RBC % Seg Neutrophils # Seg Neutrophils # Man Lymphocytes # (Manual) Monocytes # (Manual) Eosinophils # (Manual) PT INR D-Dimer Heparin Anti-Xa Level POC ABG pH ABG pH POC ABG pCO2 POC ABG pO2 ABG pO2 ABG HCO3 ABG O2 Saturation ABG Base Excess ABG Hemoglobin Oxyhemoglobin Sodium Potassium Chloride Carbon Dioxide BUN Creatinine Glucose POC Glucose Lactic Acid 3.30 H* 3.00 H* Calcium Ionized Calcium Phosphorus Magnesium Iron TIBC Ferritin Total Bilirubin Direct Bilirubin AST ALT Alkaline Phosphatase Total Creatine Kinase CK-MB (CK-2) Troponin T 0.047 H D C-Reactive Protein Serum Total Protein Total Protein Albumin Cecnv-3-Gslhwxgmj Iynmf-8-Hocmoenci PEP Interpretation Triglycerides 395 H LDL Cholesterol Direct 10 L HDL Cholesterol 7 L Free T4 PTH Intact Urine WBC (Auto) Urine Creatinine Salicylates Acetaminophen Crossmatch 03/17/19 03/17/19 03/17/19 03:45 03:45 03:45 WBC RBC Hgb Hct MCV MCH MCHC RDW Plt Count Lymph % (Auto) [place] % (Auto) Eos % (Auto) Lymph # [place] # Eos # Seg Neutrophils % Seg Neuts % (Manual) Lymphocytes % (Manual) Monocytes % (Manual) Eosinophils % (Manual) Nucleated RBC % Seg Neutrophils # Seg Neutrophils # Man Lymphocytes # (Manual) Monocytes # (Manual) Eosinophils # (Manual) PT INR D-Dimer Heparin Anti-Xa Level POC ABG pH ABG pH POC ABG pCO2 POC ABG pO2 ABG pO2 ABG HCO3 ABG O2 Saturation ABG Base Excess ABG Hemoglobin Oxyhemoglobin Sodium 131 L Potassium Chloride 88.9 L Carbon Dioxide BUN 53 H Creatinine 7.1 H Glucose POC Glucose Lactic Acid 4.10 H* Calcium 5.4 L* D Ionized Calcium Phosphorus 7.30 H Magnesium 1.60 L Iron TIBC Ferritin Total Bilirubin 5.90 H Direct Bilirubin AST 801 H ALT 109 H Alkaline Phosphatase Total Creatine Kinase 10850 H 87896 H CK-MB (CK-2) 41.5 H Troponin T 0.054 H C-Reactive Protein Serum Total Protein Total Protein 4.5 L Albumin 2.0 L Dkeij-7-Mlqltucns Uqumv-8-Qbiiycniq PEP Interpretation Triglycerides LDL Cholesterol Direct HDL Cholesterol Free T4 PTH Intact Urine WBC (Auto) Urine Creatinine Salicylates Acetaminophen Crossmatch 03/17/19 03/17/19 03/17/19 05:47 07:16 07:16 WBC RBC Hgb Hct MCV MCH MCHC RDW Plt Count Lymph % (Auto) [place] % (Auto) Eos % (Auto) Lymph # [place] # Eos # Seg Neutrophils % Seg Neuts % (Manual) Lymphocytes % (Manual) Monocytes % (Manual) Eosinophils % (Manual) Nucleated RBC % Seg Neutrophils # Seg Neutrophils # Man Lymphocytes # (Manual) Monocytes # (Manual) Eosinophils # (Manual) PT INR D-Dimer Heparin Anti-Xa Level POC ABG pH 7.193 L ABG pH POC ABG pCO2 45.2 H POC ABG pO2 65 L ABG pO2 ABG HCO3 ABG O2 Saturation ABG Base Excess ABG Hemoglobin Oxyhemoglobin Sodium Potassium Chloride Carbon Dioxide BUN Creatinine Glucose POC Glucose Lactic Acid 5.50 H* Calcium Ionized Calcium Phosphorus Magnesium Iron TIBC Ferritin Total Bilirubin Direct Bilirubin AST ALT Alkaline Phosphatase Total Creatine Kinase 78130 H CK-MB (CK-2) 54.3 H Troponin T 0.058 H C-Reactive Protein Serum Total Protein Total Protein Albumin Jdaiy-5-Buwtecqub Eqpaf-6-Oumcdnxfl PEP Interpretation Triglycerides LDL Cholesterol Direct HDL Cholesterol Free T4 PTH Intact Urine WBC (Auto) Urine Creatinine Salicylates Acetaminophen Crossmatch 03/17/19 03/17/19 03/17/19 11:52 12:51 13:01 WBC RBC Hgb Hct MCV MCH MCHC RDW Plt Count Lymph % (Auto) [place] % (Auto) Eos % (Auto) Lymph # [place] # Eos # Seg Neutrophils % Seg Neuts % (Manual) Lymphocytes % (Manual) Monocytes % (Manual) Eosinophils % (Manual) Nucleated RBC % Seg Neutrophils # Seg Neutrophils # Man Lymphocytes # (Manual) Monocytes # (Manual) Eosinophils # (Manual) PT INR D-Dimer Heparin Anti-Xa Level POC ABG pH 7.154 L ABG pH POC ABG pCO2 34.3 L POC ABG pO2 73 L ABG pO2 ABG HCO3 ABG O2 Saturation ABG Base Excess ABG Hemoglobin Oxyhemoglobin Sodium Potassium Chloride Carbon Dioxide BUN Creatinine Glucose POC Glucose 60 L Lactic Acid 8.20 H* Calcium Ionized Calcium Phosphorus Magnesium Iron TIBC Ferritin Total Bilirubin Direct Bilirubin AST ALT Alkaline Phosphatase Total Creatine Kinase CK-MB (CK-2) Troponin T C-Reactive Protein Serum Total Protein Total Protein Albumin Sujtg-4-Fefuxomzx Vagdo-6-Tfafjdzjw PEP Interpretation Triglycerides LDL Cholesterol Direct HDL Cholesterol Free T4 PTH Intact Urine WBC (Auto) Urine Creatinine Salicylates Acetaminophen Crossmatch 03/17/19 03/17/19 03/17/19 14:37 14:37 14:37 WBC 29.3 H RBC Hgb Hct MCV MCH MCHC RDW 15.8 H Plt Count 45 L Lymph % (Auto) [place] % (Auto) Eos % (Auto) Lymph # [place] # Eos # Seg Neutrophils % Seg Neuts % (Manual) 81.0 H Lymphocytes % (Manual) 1.0 L Monocytes % (Manual) 15.0 H Eosinophils % (Manual) Nucleated RBC % Seg Neutrophils # Seg Neutrophils # Man 23.7 H Lymphocytes # (Manual) 0.3 L Monocytes # (Manual) 4.4 H Eosinophils # (Manual) PT INR D-Dimer Heparin Anti-Xa Level POC ABG pH ABG pH POC ABG pCO2 POC ABG pO2 ABG pO2 ABG HCO3 ABG O2 Saturation ABG Base Excess ABG Hemoglobin Oxyhemoglobin Sodium Potassium Chloride Carbon Dioxide BUN Creatinine Glucose POC Glucose Lactic Acid 4.90 H* Calcium Ionized Calcium Phosphorus Magnesium Iron TIBC Ferritin Total Bilirubin Direct Bilirubin AST ALT Alkaline Phosphatase Total Creatine Kinase CK-MB (CK-2) Troponin T C-Reactive Protein 24.90 H Serum Total Protein Total Protein Albumin Dghkx-4-Hrtccqirv Smvib-6-Abwqezfem PEP Interpretation Triglycerides LDL Cholesterol Direct HDL Cholesterol Free T4 PTH Intact Urine WBC (Auto) Urine Creatinine Salicylates Acetaminophen Crossmatch 03/17/19 03/17/19 03/17/19 16:05 16:05 17:02 WBC RBC Hgb Hct MCV MCH MCHC RDW Plt Count Lymph % (Auto) [place] % (Auto) Eos % (Auto) Lymph # [place] # Eos # Seg Neutrophils % Seg Neuts % (Manual) Lymphocytes % (Manual) Monocytes % (Manual) Eosinophils % (Manual) Nucleated RBC % Seg Neutrophils # Seg Neutrophils # Man Lymphocytes # (Manual) Monocytes # (Manual) Eosinophils # (Manual) PT INR D-Dimer Heparin Anti-Xa Level POC ABG pH 7.183 L ABG pH POC ABG pCO2 POC ABG pO2 65 L ABG pO2 ABG HCO3 ABG O2 Saturation ABG Base Excess ABG Hemoglobin Oxyhemoglobin Sodium Potassium Chloride Carbon Dioxide BUN Creatinine Glucose POC Glucose Lactic Acid Calcium Ionized Calcium Phosphorus Magnesium Iron TIBC Ferritin Total Bilirubin Direct Bilirubin AST ALT Alkaline Phosphatase Total Creatine Kinase CK-MB (CK-2) Troponin T C-Reactive Protein Serum Total Protein Total Protein Albumin Vkovt-1-Hilrlvssb Dikmr-0-Ybomtgoco PEP Interpretation Triglycerides LDL Cholesterol Direct HDL Cholesterol Free T4 PTH Intact Urine WBC (Auto) 30.0 H Urine Creatinine 106.6 H Salicylates Acetaminophen Crossmatch 03/18/19 03/18/19 03/18/19 05:12 05:16 05:53 WBC RBC Hgb Hct MCV MCH MCHC RDW Plt Count Lymph % (Auto) [place] % (Auto) Eos % (Auto) Lymph # [place] # Eos # Seg Neutrophils % Seg Neuts % (Manual) Lymphocytes % (Manual) Monocytes % (Manual) Eosinophils % (Manual) Nucleated RBC % Seg Neutrophils # Seg Neutrophils # Man Lymphocytes # (Manual) Monocytes # (Manual) Eosinophils # (Manual) PT INR D-Dimer Heparin Anti-Xa Level POC ABG pH 7.257 L ABG pH POC ABG pCO2 31.6 L POC ABG pO2 69 L ABG pO2 ABG HCO3 ABG O2 Saturation ABG Base Excess ABG Hemoglobin Oxyhemoglobin Sodium Potassium Chloride Carbon Dioxide BUN Creatinine Glucose POC Glucose 141 H Lactic Acid 5.00 H* Calcium Ionized Calcium Phosphorus Magnesium Iron TIBC Ferritin Total Bilirubin Direct Bilirubin AST ALT Alkaline Phosphatase Total Creatine Kinase CK-MB (CK-2) Troponin T C-Reactive Protein Serum Total Protein Total Protein Albumin Mgced-7-Iwkghnqia Btgsx-2-Xjkxiewwv PEP Interpretation Triglycerides LDL Cholesterol Direct HDL Cholesterol Free T4 PTH Intact Urine WBC (Auto) Urine Creatinine Salicylates Acetaminophen Crossmatch 03/18/19 03/18/19 03/18/19 06:57 08:40 08:40 WBC 31.7 H RBC Hgb Hct MCV MCH MCHC RDW 15.5 H Plt Count 35 L Lymph % (Auto) [place] % (Auto) Eos % (Auto) Lymph # [place] # Eos # Seg Neutrophils % Seg Neuts % (Manual) Lymphocytes % (Manual) Monocytes % (Manual) Eosinophils % (Manual) Nucleated RBC % Seg Neutrophils # Seg Neutrophils # Man Lymphocytes # (Manual) Monocytes # (Manual) Eosinophils # (Manual) PT INR D-Dimer Heparin Anti-Xa Level POC ABG pH ABG pH POC ABG pCO2 POC ABG pO2 ABG pO2 ABG HCO3 ABG O2 Saturation ABG Base Excess ABG Hemoglobin Oxyhemoglobin Sodium 132 L Potassium 5.5 H D Chloride 88.5 L Carbon Dioxide 18 L BUN 71 H Creatinine 8.1 H Glucose 205 H POC Glucose Lactic Acid 5.00 H* Calcium 4.1 L* D Ionized Calcium Phosphorus Magnesium 2.40 H Iron TIBC Ferritin Total Bilirubin 7.50 H Direct Bilirubin AST 1088 H ALT 159 H Alkaline Phosphatase 190 H Total Creatine Kinase 039379 H CK-MB (CK-2) Troponin T C-Reactive Protein Serum Total Protein Total Protein 4.7 L Albumin 1.8 L Yzanw-0-Vraecfppm Gstid-7-Xtunncsqs PEP Interpretation Triglycerides LDL Cholesterol Direct HDL Cholesterol Free T4 PTH Intact Urine WBC (Auto) Urine Creatinine Salicylates Acetaminophen Crossmatch 03/18/19 03/18/19 03/18/19 12:33 12:50 13:19 WBC RBC Hgb Hct MCV MCH MCHC RDW Plt Count Lymph % (Auto) [place] % (Auto) Eos % (Auto) Lymph # [place] # Eos # Seg Neutrophils % Seg Neuts % (Manual) Lymphocytes % (Manual) Monocytes % (Manual) Eosinophils % (Manual) Nucleated RBC % Seg Neutrophils # Seg Neutrophils # Man Lymphocytes # (Manual) Monocytes # (Manual) Eosinophils # (Manual) PT INR D-Dimer Heparin Anti-Xa Level POC ABG pH 7.282 L ABG pH POC ABG pCO2 POC ABG pO2 67 L ABG pO2 ABG HCO3 ABG O2 Saturation ABG Base Excess ABG Hemoglobin Oxyhemoglobin Sodium Potassium Chloride Carbon Dioxide BUN Creatinine Glucose POC Glucose 129 H Lactic Acid 3.30 H* Calcium Ionized Calcium Phosphorus Magnesium Iron TIBC Ferritin Total Bilirubin Direct Bilirubin AST ALT Alkaline Phosphatase Total Creatine Kinase CK-MB (CK-2) Troponin T C-Reactive Protein Serum Total Protein Total Protein Albumin Xsspu-3-Hopwqkohr Paqpy-7-Gvbffudbn PEP Interpretation Triglycerides LDL Cholesterol Direct HDL Cholesterol Free T4 PTH Intact Urine WBC (Auto) Urine Creatinine Salicylates Acetaminophen Crossmatch 03/18/19 03/18/19 03/18/19 13:19 16:50 18:11 WBC RBC Hgb Hct MCV MCH MCHC RDW Plt Count Lymph % (Auto) [place] % (Auto) Eos % (Auto) Lymph # [place] # Eos # Seg Neutrophils % Seg Neuts % (Manual) Lymphocytes % (Manual) Monocytes % (Manual) Eosinophils % (Manual) Nucleated RBC % Seg Neutrophils # Seg Neutrophils # Man Lymphocytes # (Manual) Monocytes # (Manual) Eosinophils # (Manual) PT INR D-Dimer Heparin Anti-Xa Level POC ABG pH ABG pH POC ABG pCO2 POC ABG pO2 59 L ABG pO2 ABG HCO3 ABG O2 Saturation ABG Base Excess ABG Hemoglobin Oxyhemoglobin Sodium Potassium Chloride Carbon Dioxide BUN Creatinine Glucose POC Glucose 151 H Lactic Acid Calcium 4.2 L* Ionized Calcium Phosphorus Magnesium Iron TIBC Ferritin Total Bilirubin Direct Bilirubin AST ALT Alkaline Phosphatase Total Creatine Kinase 030803 H CK-MB (CK-2) Troponin T C-Reactive Protein Serum Total Protein Total Protein Albumin Guljd-0-Zhxgptfqv Xlsay-8-Iomyytlwq PEP Interpretation Triglycerides LDL Cholesterol Direct HDL Cholesterol Free T4 PTH Intact Urine WBC (Auto) Urine Creatinine Salicylates Acetaminophen Crossmatch 03/18/19 03/18/19 03/19/19 18:20 23:39 01:42 WBC RBC Hgb Hct MCV MCH MCHC RDW Plt Count Lymph % (Auto) [place] % (Auto) Eos % (Auto) Lymph # [place] # Eos # Seg Neutrophils % Seg Neuts % (Manual) Lymphocytes % (Manual) Monocytes % (Manual) Eosinophils % (Manual) Nucleated RBC % Seg Neutrophils # Seg Neutrophils # Man Lymphocytes # (Manual) Monocytes # (Manual) Eosinophils # (Manual) PT INR D-Dimer Heparin Anti-Xa Level POC ABG pH 7.345 L ABG pH 7.285 L POC ABG pCO2 POC ABG pO2 59 L ABG pO2 44.0 L ABG HCO3 ABG O2 Saturation 70.9 L ABG Base Excess -5.7 L ABG Hemoglobin 11.9 L Oxyhemoglobin 69.6 L Sodium Potassium Chloride Carbon Dioxide BUN Creatinine Glucose POC Glucose 152 H Lactic Acid Calcium Ionized Calcium Phosphorus Magnesium Iron TIBC Ferritin Total Bilirubin Direct Bilirubin AST ALT Alkaline Phosphatase Total Creatine Kinase CK-MB (CK-2) Troponin T C-Reactive Protein Serum Total Protein Total Protein Albumin Nmccz-8-Mrpftfkrl Vykkg-8-Sbwrkppkv PEP Interpretation Triglycerides LDL Cholesterol Direct HDL Cholesterol Free T4 PTH Intact Urine WBC (Auto) Urine Creatinine Salicylates Acetaminophen Crossmatch 03/19/19 03/19/19 03/19/19 04:00 04:00 05:35 WBC 36.5 H RBC Hgb Hct MCV MCH MCHC RDW 15.8 H Plt Count 35 L Lymph % (Auto) [place] % (Auto) Eos % (Auto) Lymph # [place] # Eos # Seg Neutrophils % Seg Neuts % (Manual) Lymphocytes % (Manual) Monocytes % (Manual) Eosinophils % (Manual) Nucleated RBC % Seg Neutrophils # Seg Neutrophils # Man Lymphocytes # (Manual) Monocytes # (Manual) Eosinophils # (Manual) PT INR D-Dimer Heparin Anti-Xa Level POC ABG pH ABG pH 7.265 L POC ABG pCO2 POC ABG pO2 ABG pO2 35.4 L* ABG HCO3 ABG O2 Saturation 54.4 L ABG Base Excess -6.7 L ABG Hemoglobin 12.9 L Oxyhemoglobin 53.4 L Sodium 132 L Potassium 5.7 H Chloride 89.8 L Carbon Dioxide 19 L BUN 62 H Creatinine 6.4 H Glucose 151 H POC Glucose Lactic Acid Calcium 5.2 L* D Ionized Calcium Phosphorus Magnesium Iron TIBC Ferritin Total Bilirubin 7.80 H Direct Bilirubin AST 682 H ALT 130 H Alkaline Phosphatase 167 H Total Creatine Kinase CK-MB (CK-2) Troponin T C-Reactive Protein Serum Total Protein Total Protein 4.8 L Albumin 2.3 L Uwidz-1-Nqegidnuz Lppnu-6-Hvdgtgipd PEP Interpretation Triglycerides LDL Cholesterol Direct HDL Cholesterol Free T4 PTH Intact Urine WBC (Auto) Urine Creatinine Salicylates Acetaminophen Crossmatch 03/19/19 03/19/19 03/19/19 05:49 09:16 09:50 WBC RBC Hgb Hct MCV MCH MCHC RDW Plt Count Lymph % (Auto) [place] % (Auto) Eos % (Auto) Lymph # [place] # Eos # Seg Neutrophils % Seg Neuts % (Manual) Lymphocytes % (Manual) Monocytes % (Manual) Eosinophils % (Manual) Nucleated RBC % Seg Neutrophils # Seg Neutrophils # Man Lymphocytes # (Manual) Monocytes # (Manual) Eosinophils # (Manual) PT INR D-Dimer Heparin Anti-Xa Level POC ABG pH 7.222 L ABG pH POC ABG pCO2 56.6 H POC ABG pO2 ABG pO2 ABG HCO3 ABG O2 Saturation ABG Base Excess ABG Hemoglobin Oxyhemoglobin Sodium Potassium Chloride Carbon Dioxide BUN Creatinine Glucose POC Glucose 154 H Lactic Acid 2.70 H* Calcium Ionized Calcium Phosphorus Magnesium Iron TIBC Ferritin Total Bilirubin Direct Bilirubin AST ALT Alkaline Phosphatase Total Creatine Kinase CK-MB (CK-2) Troponin T C-Reactive Protein Serum Total Protein Total Protein Albumin Ihtgb-5-Lazooeqyw Lvuyg-8-Pybvexdqv PEP Interpretation Triglycerides LDL Cholesterol Direct HDL Cholesterol Free T4 PTH Intact Urine WBC (Auto) Urine Creatinine Salicylates Acetaminophen Crossmatch 03/19/19 03/19/19 03/19/19 09:50 11:28 17:58 WBC RBC Hgb Hct MCV MCH MCHC RDW Plt Count Lymph % (Auto) [place] % (Auto) Eos % (Auto) Lymph # [place] # Eos # Seg Neutrophils % Seg Neuts % (Manual) Lymphocytes % (Manual) Monocytes % (Manual) Eosinophils % (Manual) Nucleated RBC % Seg Neutrophils # Seg Neutrophils # Man Lymphocytes # (Manual) Monocytes # (Manual) Eosinophils # (Manual) PT INR D-Dimer Heparin Anti-Xa Level POC ABG pH 7.250 L ABG pH POC ABG pCO2 52.6 H POC ABG pO2 ABG pO2 ABG HCO3 ABG O2 Saturation ABG Base Excess ABG Hemoglobin Oxyhemoglobin Sodium Potassium Chloride Carbon Dioxide BUN Creatinine Glucose POC Glucose 160 H Lactic Acid Calcium Ionized Calcium Phosphorus Magnesium Iron TIBC Ferritin Total Bilirubin Direct Bilirubin AST ALT Alkaline Phosphatase Total Creatine Kinase 15009 H CK-MB (CK-2) Troponin T C-Reactive Protein Serum Total Protein Total Protein Albumin Lzaxz-9-Ogwxtsnam Ymqse-1-Ncebyqrql PEP Interpretation Triglycerides LDL Cholesterol Direct HDL Cholesterol Free T4 PTH Intact Urine WBC (Auto) Urine Creatinine Salicylates Acetaminophen Crossmatch 03/19/19 03/19/19 03/20/19 19:48 21:03 02:16 WBC RBC Hgb Hct MCV MCH MCHC RDW Plt Count Lymph % (Auto) [place] % (Auto) Eos % (Auto) Lymph # [place] # Eos # Seg Neutrophils % Seg Neuts % (Manual) Lymphocytes % (Manual) Monocytes % (Manual) Eosinophils % (Manual) Nucleated RBC % Seg Neutrophils # Seg Neutrophils # Man Lymphocytes # (Manual) Monocytes # (Manual) Eosinophils # (Manual) PT INR D-Dimer Heparin Anti-Xa Level POC ABG pH 7.279 L ABG pH POC ABG pCO2 50.3 H POC ABG pO2 129 H ABG pO2 ABG HCO3 ABG O2 Saturation ABG Base Excess ABG Hemoglobin Oxyhemoglobin Sodium Potassium Chloride Carbon Dioxide BUN Creatinine Glucose POC Glucose 119 H 119 H Lactic Acid Calcium Ionized Calcium Phosphorus Magnesium Iron TIBC Ferritin Total Bilirubin Direct Bilirubin AST ALT Alkaline Phosphatase Total Creatine Kinase CK-MB (CK-2) Troponin T C-Reactive Protein Serum Total Protein Total Protein Albumin Oxwdo-5-Gnanfuvgy Okkdp-7-Kkdewvnve PEP Interpretation Triglycerides LDL Cholesterol Direct HDL Cholesterol Free T4 PTH Intact Urine WBC (Auto) Urine Creatinine Salicylates Acetaminophen Crossmatch 03/20/19 03/20/19 03/20/19 04:23 05:05 09:30 WBC 36.3 H RBC Hgb Hct MCV MCH MCHC RDW 15.5 H Plt Count 29 L Lymph % (Auto) [place] % (Auto) Eos % (Auto) Lymph # [place] # Eos # Seg Neutrophils % Seg Neuts % (Manual) Lymphocytes % (Manual) Monocytes % (Manual) Eosinophils % (Manual) Nucleated RBC % Seg Neutrophils # Seg Neutrophils # Man Lymphocytes # (Manual) Monocytes # (Manual) Eosinophils # (Manual) PT INR D-Dimer Heparin Anti-Xa Level POC ABG pH ABG pH POC ABG pCO2 POC ABG pO2 280 H ABG pO2 ABG HCO3 ABG O2 Saturation ABG Base Excess ABG Hemoglobin Oxyhemoglobin Sodium Potassium Chloride Carbon Dioxide BUN Creatinine Glucose POC Glucose 115 H Lactic Acid Calcium Ionized Calcium Phosphorus Magnesium Iron TIBC Ferritin Total Bilirubin Direct Bilirubin AST ALT Alkaline Phosphatase Total Creatine Kinase CK-MB (CK-2) Troponin T C-Reactive Protein Serum Total Protein Total Protein Albumin Oadgn-5-Dnvrjptnh Bblvc-2-Xqalykupl PEP Interpretation Triglycerides LDL Cholesterol Direct HDL Cholesterol Free T4 PTH Intact Urine WBC (Auto) Urine Creatinine Salicylates Acetaminophen Crossmatch 03/20/19 03/20/19 03/20/19 09:30 09:30 11:34 WBC RBC Hgb Hct MCV MCH MCHC RDW Plt Count Lymph % (Auto) [place] % (Auto) Eos % (Auto) Lymph # [place] # Eos # Seg Neutrophils % Seg Neuts % (Manual) Lymphocytes % (Manual) Monocytes % (Manual) Eosinophils % (Manual) Nucleated RBC % Seg Neutrophils # Seg Neutrophils # Man Lymphocytes # (Manual) Monocytes # (Manual) Eosinophils # (Manual) PT INR D-Dimer Heparin Anti-Xa Level POC ABG pH ABG pH POC ABG pCO2 POC ABG pO2 ABG pO2 ABG HCO3 ABG O2 Saturation ABG Base Excess ABG Hemoglobin Oxyhemoglobin Sodium 131 L Potassium Chloride 92.3 L Carbon Dioxide 20 L BUN 68 H Creatinine 6.1 H Glucose 164 H POC Glucose 141 H Lactic Acid Calcium 5.3 L* Ionized Calcium Phosphorus Magnesium Iron TIBC Ferritin Total Bilirubin 9.50 H Direct Bilirubin AST 381 H ALT 116 H Alkaline Phosphatase 255 H Total Creatine Kinase 52499 H CK-MB (CK-2) Troponin T C-Reactive Protein Serum Total Protein Total Protein 5.1 L Albumin 2.3 L Lknbg-4-Wdhtqtdwu Zbmqg-0-Ivwrmbvpi PEP Interpretation Triglycerides LDL Cholesterol Direct HDL Cholesterol Free T4 PTH Intact Urine WBC (Auto) Urine Creatinine Salicylates Acetaminophen Crossmatch 03/20/19 03/20/19 03/20/19 14:41 14:45 18:50 WBC RBC Hgb Hct MCV MCH MCHC RDW Plt Count Lymph % (Auto) [place] % (Auto) Eos % (Auto) Lymph # [place] # Eos # Seg Neutrophils % Seg Neuts % (Manual) Lymphocytes % (Manual) Monocytes % (Manual) Eosinophils % (Manual) Nucleated RBC % Seg Neutrophils # Seg Neutrophils # Man Lymphocytes # (Manual) Monocytes # (Manual) Eosinophils # (Manual) PT INR D-Dimer Heparin Anti-Xa Level POC ABG pH ABG pH POC ABG pCO2 POC ABG pO2 ABG pO2 ABG HCO3 ABG O2 Saturation ABG Base Excess ABG Hemoglobin Oxyhemoglobin Sodium Potassium Chloride Carbon Dioxide BUN Creatinine Glucose POC Glucose 117 H Lactic Acid 2.90 H* Calcium Ionized Calcium Phosphorus Magnesium Iron TIBC Ferritin Total Bilirubin Direct Bilirubin AST ALT Alkaline Phosphatase Total Creatine Kinase CK-MB (CK-2) Troponin T C-Reactive Protein 13.30 H Serum Total Protein Total Protein Albumin Mgecz-4-Akhfublma Nhatq-8-Tfipcmevv PEP Interpretation Triglycerides LDL Cholesterol Direct HDL Cholesterol Free T4 PTH Intact Urine WBC (Auto) Urine Creatinine Salicylates Acetaminophen Crossmatch 03/20/19 03/21/19 03/21/19 21:55 04:26 04:26 WBC 37.8 H RBC Hgb Hct MCV MCH MCHC RDW 15.4 H Plt Count 36 L Lymph % (Auto) [place] % (Auto) Eos % (Auto) Lymph # [place] # Eos # Seg Neutrophils % Seg Neuts % (Manual) 93.0 H Lymphocytes % (Manual) 3.0 L Monocytes % (Manual) Eosinophils % (Manual) Nucleated RBC % 1.0 H Seg Neutrophils # 34.6 H Seg Neutrophils # Man 35.2 H Lymphocytes # (Manual) 1.1 L Monocytes # (Manual) Eosinophils # (Manual) PT INR D-Dimer Heparin Anti-Xa Level POC ABG pH ABG pH POC ABG pCO2 POC ABG pO2 ABG pO2 ABG HCO3 ABG O2 Saturation ABG Base Excess ABG Hemoglobin Oxyhemoglobin Sodium 131 L Potassium Chloride 90.7 L Carbon Dioxide 21 L BUN 69 H Creatinine 5.7 H Glucose 170 H POC Glucose 128 H Lactic Acid Calcium 6.1 L D Ionized Calcium Phosphorus Magnesium Iron TIBC Ferritin Total Bilirubin 9.50 H Direct Bilirubin AST 308 H ALT 124 H Alkaline Phosphatase 327 H Total Creatine Kinase 65345 H CK-MB (CK-2) Troponin T C-Reactive Protein Serum Total Protein Total Protein 5.7 L Albumin 2.6 L Wdzkz-4-Xtzbukvez Elazw-7-Aguhbnfsv PEP Interpretation Triglycerides LDL Cholesterol Direct HDL Cholesterol Free T4 PTH Intact Urine WBC (Auto) Urine Creatinine Salicylates Acetaminophen Crossmatch 03/21/19 03/21/19 03/21/19 05:17 05:39 08:29 WBC RBC Hgb Hct MCV MCH MCHC RDW Plt Count Lymph % (Auto) [place] % (Auto) Eos % (Auto) Lymph # [place] # Eos # Seg Neutrophils % Seg Neuts % (Manual) Lymphocytes % (Manual) Monocytes % (Manual) Eosinophils % (Manual) Nucleated RBC % Seg Neutrophils # Seg Neutrophils # Man Lymphocytes # (Manual) Monocytes # (Manual) Eosinophils # (Manual) PT INR D-Dimer Heparin Anti-Xa Level POC ABG pH ABG pH POC ABG pCO2 POC ABG pO2 209 H ABG pO2 ABG HCO3 ABG O2 Saturation ABG Base Excess ABG Hemoglobin Oxyhemoglobin Sodium Potassium Chloride Carbon Dioxide BUN Creatinine Glucose POC Glucose 145 H Lactic Acid Calcium Ionized Calcium Phosphorus Magnesium Iron TIBC Ferritin Total Bilirubin Direct Bilirubin AST ALT Alkaline Phosphatase Total Creatine Kinase 39254 H CK-MB (CK-2) Troponin T C-Reactive Protein Serum Total Protein Total Protein Albumin Kpoqk-1-Olpzaprww Ddczd-2-Utkpevtzj PEP Interpretation Triglycerides LDL Cholesterol Direct HDL Cholesterol Free T4 PTH Intact Urine WBC (Auto) Urine Creatinine Salicylates Acetaminophen Crossmatch 03/21/19 03/21/19 03/21/19 08:29 11:43 12:00 WBC RBC Hgb Hct MCV MCH MCHC RDW Plt Count Lymph % (Auto) [place] % (Auto) Eos % (Auto) Lymph # [place] # Eos # Seg Neutrophils % Seg Neuts % (Manual) Lymphocytes % (Manual) Monocytes % (Manual) Eosinophils % (Manual) Nucleated RBC % Seg Neutrophils # Seg Neutrophils # Man Lymphocytes # (Manual) Monocytes # (Manual) Eosinophils # (Manual) PT INR D-Dimer Heparin Anti-Xa Level POC ABG pH ABG pH POC ABG pCO2 POC ABG pO2 ABG pO2 ABG HCO3 ABG O2 Saturation ABG Base Excess ABG Hemoglobin Oxyhemoglobin Sodium Potassium Chloride Carbon Dioxide BUN Creatinine Glucose POC Glucose 123 H Lactic Acid 2.60 H* 2.20 H* Calcium Ionized Calcium Phosphorus Magnesium Iron TIBC Ferritin Total Bilirubin Direct Bilirubin AST ALT Alkaline Phosphatase Total Creatine Kinase CK-MB (CK-2) Troponin T C-Reactive Protein Serum Total Protein Total Protein Albumin Iznzl-5-Akywwwnrk Yehir-1-Dkdycbzky PEP Interpretation Triglycerides LDL Cholesterol Direct HDL Cholesterol Free T4 PTH Intact Urine WBC (Auto) Urine Creatinine Salicylates Acetaminophen Crossmatch 03/21/19 03/21/19 03/21/19 14:11 18:28 19:32 WBC RBC Hgb Hct MCV MCH MCHC RDW Plt Count Lymph % (Auto) [place] % (Auto) Eos % (Auto) Lymph # [place] # Eos # Seg Neutrophils % Seg Neuts % (Manual) Lymphocytes % (Manual) Monocytes % (Manual) Eosinophils % (Manual) Nucleated RBC % Seg Neutrophils # Seg Neutrophils # Man Lymphocytes # (Manual) Monocytes # (Manual) Eosinophils # (Manual) PT INR D-Dimer Heparin Anti-Xa Level POC ABG pH 7.293 L ABG pH POC ABG pCO2 POC ABG pO2 ABG pO2 ABG HCO3 ABG O2 Saturation ABG Base Excess ABG Hemoglobin Oxyhemoglobin Sodium Potassium Chloride Carbon Dioxide BUN Creatinine Glucose POC Glucose 153 H Lactic Acid 2.10 H* Calcium Ionized Calcium Phosphorus Magnesium Iron TIBC Ferritin Total Bilirubin Direct Bilirubin AST ALT Alkaline Phosphatase Total Creatine Kinase CK-MB (CK-2) Troponin T C-Reactive Protein Serum Total Protein Total Protein Albumin Dteki-9-Mivfredtv Hexfc-7-Wjaratgns PEP Interpretation Triglycerides LDL Cholesterol Direct HDL Cholesterol Free T4 PTH Intact Urine WBC (Auto) Urine Creatinine Salicylates Acetaminophen Crossmatch 03/21/19 03/22/19 03/22/19 23:38 05:08 05:51 WBC RBC Hgb Hct MCV MCH MCHC RDW Plt Count Lymph % (Auto) [place] % (Auto) Eos % (Auto) Lymph # [place] # Eos # Seg Neutrophils % Seg Neuts % (Manual) Lymphocytes % (Manual) Monocytes % (Manual) Eosinophils % (Manual) Nucleated RBC % Seg Neutrophils # Seg Neutrophils # Man Lymphocytes # (Manual) Monocytes # (Manual) Eosinophils # (Manual) PT INR D-Dimer Heparin Anti-Xa Level POC ABG pH 7.283 L ABG pH POC ABG pCO2 POC ABG pO2 53 L ABG pO2 ABG HCO3 ABG O2 Saturation ABG Base Excess ABG Hemoglobin Oxyhemoglobin Sodium Potassium Chloride Carbon Dioxide BUN Creatinine Glucose POC Glucose 149 H 131 H Lactic Acid Calcium Ionized Calcium Phosphorus Magnesium Iron TIBC Ferritin Total Bilirubin Direct Bilirubin AST ALT Alkaline Phosphatase Total Creatine Kinase CK-MB (CK-2) Troponin T C-Reactive Protein Serum Total Protein Total Protein Albumin Twkeh-1-Nqolxfdyy Yqagi-9-Afjpozdzd PEP Interpretation Triglycerides LDL Cholesterol Direct HDL Cholesterol Free T4 PTH Intact Urine WBC (Auto) Urine Creatinine Salicylates Acetaminophen Crossmatch 03/22/19 03/22/19 03/22/19 08:00 08:00 18:19 WBC 36.7 H RBC Hgb 11.0 L Hct 33.5 L MCV MCH MCHC RDW 15.5 H Plt Count 43 L Lymph % (Auto) [place] % (Auto) Eos % (Auto) Lymph # [place] # Eos # Seg Neutrophils % Seg Neuts % (Manual) 87.0 H Lymphocytes % (Manual) 7.0 L Monocytes % (Manual) Eosinophils % (Manual) Nucleated RBC % Seg Neutrophils # Seg Neutrophils # Man 31.9 H Lymphocytes # (Manual) Monocytes # (Manual) Eosinophils # (Manual) PT INR D-Dimer Heparin Anti-Xa Level POC ABG pH ABG pH POC ABG pCO2 46.4 H POC ABG pO2 108 H ABG pO2 ABG HCO3 ABG O2 Saturation ABG Base Excess ABG Hemoglobin Oxyhemoglobin Sodium 132 L Potassium 5.6 H Chloride 89.6 L Carbon Dioxide 20 L BUN 101 H Creatinine 7.4 H Glucose 124 H POC Glucose Lactic Acid Calcium 5.2 L* Ionized Calcium Phosphorus Magnesium Iron TIBC Ferritin Total Bilirubin 2.80 H Direct Bilirubin AST 119 H ALT 86 H Alkaline Phosphatase 245 H Total Creatine Kinase CK-MB (CK-2) Troponin T C-Reactive Protein Serum Total Protein Total Protein 5.6 L Albumin 2.5 L Zhrhn-2-Docokcocu Djciy-9-Oyhpehfmh PEP Interpretation Triglycerides LDL Cholesterol Direct HDL Cholesterol Free T4 PTH Intact Urine WBC (Auto) Urine Creatinine Salicylates Acetaminophen Crossmatch 03/22/19 03/23/19 03/23/19 20:37 04:49 05:28 WBC 35.9 H RBC Hgb 10.8 L Hct 33.2 L MCV MCH MCHC RDW 15.5 H Plt Count 49 L Lymph % (Auto) [place] % (Auto) Eos % (Auto) Lymph # [place] # Eos # Seg Neutrophils % Seg Neuts % (Manual) 81.0 H Lymphocytes % (Manual) 3.5 L Monocytes % (Manual) Eosinophils % (Manual) Nucleated RBC % Seg Neutrophils # Seg Neutrophils # Man 29.1 H Lymphocytes # (Manual) Monocytes # (Manual) 1.4 H Eosinophils # (Manual) PT INR D-Dimer Heparin Anti-Xa Level POC ABG pH 7.296 L ABG pH POC ABG pCO2 46.2 H POC ABG pO2 ABG pO2 ABG HCO3 ABG O2 Saturation ABG Base Excess ABG Hemoglobin Oxyhemoglobin Sodium 129 L Potassium 5.2 H Chloride 91.1 L Carbon Dioxide BUN 91 H Creatinine 6.6 H Glucose 190 H POC Glucose Lactic Acid Calcium 5.3 L* Ionized Calcium Phosphorus Magnesium Iron TIBC Ferritin Total Bilirubin 1.80 H Direct Bilirubin AST 80 H ALT 62 H Alkaline Phosphatase 209 H Total Creatine Kinase 9758 H CK-MB (CK-2) Troponin T C-Reactive Protein Serum Total Protein Total Protein 5.2 L Albumin 2.2 L Lccae-4-Sqkoxazup Nvouv-6-Elnsghtbx PEP Interpretation Triglycerides LDL Cholesterol Direct HDL Cholesterol Free T4 PTH Intact Urine WBC (Auto) Urine Creatinine Salicylates Acetaminophen Crossmatch 03/23/19 03/23/19 03/23/19 05:28 05:31 11:33 WBC 29.7 H RBC 3.59 L Hgb 10.1 L Hct 31.1 L MCV MCH MCHC RDW 15.4 H Plt Count 47 L Lymph % (Auto) [place] % (Auto) Eos % (Auto) Lymph # [place] # Eos # Seg Neutrophils % Seg Neuts % (Manual) 89.0 H Lymphocytes % (Manual) 6.0 L Monocytes % (Manual) Eosinophils % (Manual) Nucleated RBC % 1.0 H Seg Neutrophils # Seg Neutrophils # Man 26.4 H Lymphocytes # (Manual) Monocytes # (Manual) Eosinophils # (Manual) PT INR D-Dimer Heparin Anti-Xa Level POC ABG pH ABG pH POC ABG pCO2 POC ABG pO2 ABG pO2 ABG HCO3 ABG O2 Saturation ABG Base Excess ABG Hemoglobin Oxyhemoglobin Sodium Potassium Chloride Carbon Dioxide BUN Creatinine Glucose POC Glucose 122 H 113 H Lactic Acid Calcium Ionized Calcium Phosphorus Magnesium Iron TIBC Ferritin Total Bilirubin Direct Bilirubin AST ALT Alkaline Phosphatase Total Creatine Kinase CK-MB (CK-2) Troponin T C-Reactive Protein Serum Total Protein Total Protein Albumin Guwdv-6-Zivhwkiig Dodhh-4-Lfhqpszcj PEP Interpretation Triglycerides LDL Cholesterol Direct HDL Cholesterol Free T4 PTH Intact Urine WBC (Auto) Urine Creatinine Salicylates Acetaminophen Crossmatch 03/23/19 03/24/19 03/24/19 17:47 00:00 04:50 WBC 35.0 H RBC Hgb 10.4 L Hct 32.4 L MCV MCH MCHC RDW Plt Count 60 L Lymph % (Auto) [place] % (Auto) Eos % (Auto) Lymph # [place] # Eos # Seg Neutrophils % Seg Neuts % (Manual) 93.0 H Lymphocytes % (Manual) 5.0 L Monocytes % (Manual) Eosinophils % (Manual) Nucleated RBC % 7.0 H Seg Neutrophils # Seg Neutrophils # Man 32.6 H Lymphocytes # (Manual) Monocytes # (Manual) Eosinophils # (Manual) PT INR D-Dimer Heparin Anti-Xa Level POC ABG pH ABG pH POC ABG pCO2 POC ABG pO2 ABG pO2 ABG HCO3 ABG O2 Saturation ABG Base Excess ABG Hemoglobin Oxyhemoglobin Sodium Potassium Chloride Carbon Dioxide BUN Creatinine Glucose POC Glucose 111 H 108 H Lactic Acid Calcium Ionized Calcium Phosphorus Magnesium Iron TIBC Ferritin Total Bilirubin Direct Bilirubin AST ALT Alkaline Phosphatase Total Creatine Kinase CK-MB (CK-2) Troponin T C-Reactive Protein Serum Total Protein Total Protein Albumin Idppq-1-Avflrwqed Wosvm-9-Ghtwwmmit PEP Interpretation Triglycerides LDL Cholesterol Direct HDL Cholesterol Free T4 PTH Intact Urine WBC (Auto) Urine Creatinine Salicylates Acetaminophen Crossmatch 03/24/19 03/24/19 03/24/19 04:50 05:06 12:55 WBC RBC Hgb Hct MCV MCH MCHC RDW Plt Count Lymph % (Auto) [place] % (Auto) Eos % (Auto) Lymph # [place] # Eos # Seg Neutrophils % Seg Neuts % (Manual) Lymphocytes % (Manual) Monocytes % (Manual) Eosinophils % (Manual) Nucleated RBC % Seg Neutrophils # Seg Neutrophils # Man Lymphocytes # (Manual) Monocytes # (Manual) Eosinophils # (Manual) PT INR D-Dimer Heparin Anti-Xa Level POC ABG pH ABG pH POC ABG pCO2 POC ABG pO2 ABG pO2 ABG HCO3 ABG O2 Saturation ABG Base Excess ABG Hemoglobin Oxyhemoglobin Sodium 134 L Potassium 5.1 H Chloride 95.3 L Carbon Dioxide 21 L BUN 85 H Creatinine 6.4 H Glucose 109 H POC Glucose 112 H 110 H Lactic Acid Calcium 5.8 L* Ionized Calcium Phosphorus Magnesium Iron TIBC Ferritin Total Bilirubin Direct Bilirubin AST ALT Alkaline Phosphatase Total Creatine Kinase 5747 H CK-MB (CK-2) Troponin T C-Reactive Protein Serum Total Protein Total Protein Albumin Iuvqq-7-Jrlocfhti Akmxe-8-Jvbopvday PEP Interpretation Triglycerides LDL Cholesterol Direct HDL Cholesterol Free T4 PTH Intact Urine WBC (Auto) Urine Creatinine Salicylates Acetaminophen Crossmatch 03/24/19 03/25/19 03/25/19 23:29 05:00 05:00 WBC RBC Hgb Hct MCV MCH MCHC RDW Plt Count Lymph % (Auto) [place] % (Auto) Eos % (Auto) Lymph # [place] # Eos # Seg Neutrophils % Seg Neuts % (Manual) Lymphocytes % (Manual) Monocytes % (Manual) Eosinophils % (Manual) Nucleated RBC % Seg Neutrophils # Seg Neutrophils # Man Lymphocytes # (Manual) Monocytes # (Manual) Eosinophils # (Manual) PT INR D-Dimer Heparin Anti-Xa Level POC ABG pH ABG pH POC ABG pCO2 POC ABG pO2 ABG pO2 ABG HCO3 ABG O2 Saturation ABG Base Excess ABG Hemoglobin Oxyhemoglobin Sodium 133 L Potassium Chloride 94.0 L Carbon Dioxide 21 L BUN 81 H Creatinine 6.4 H Glucose POC Glucose 109 H Lactic Acid Calcium 5.5 L* Ionized Calcium Phosphorus Magnesium Iron TIBC Ferritin Total Bilirubin Direct Bilirubin AST 80 H ALT Alkaline Phosphatase 202 H Total Creatine Kinase 3589 H CK-MB (CK-2) Troponin T C-Reactive Protein Serum Total Protein Total Protein 5.3 L Albumin 2.4 L Hlkgr-7-Jiwptpkfd Zhqrt-8-Ztflqfoah PEP Interpretation Triglycerides LDL Cholesterol Direct HDL Cholesterol Free T4 PTH Intact 329.9 H Urine WBC (Auto) Urine Creatinine Salicylates Acetaminophen Crossmatch 03/25/19 03/25/19 03/26/19 05:00 06:30 04:30 WBC 23.3 H RBC 3.61 L Hgb 10.2 L Hct 31.2 L MCV MCH MCHC RDW Plt Count 57 L Lymph % (Auto) [place] % (Auto) Eos % (Auto) Lymph # [place] # Eos # Seg Neutrophils % Seg Neuts % (Manual) 92.0 H Lymphocytes % (Manual) 6.0 L Monocytes % (Manual) Eosinophils % (Manual) Nucleated RBC % Seg Neutrophils # Seg Neutrophils # Man 21.4 H Lymphocytes # (Manual) Monocytes # (Manual) Eosinophils # (Manual) PT INR D-Dimer Heparin Anti-Xa Level POC ABG pH ABG pH 7.326 L POC ABG pCO2 POC ABG pO2 ABG pO2 109.5 H 137.4 H ABG HCO3 18.8 L 18.6 L ABG O2 Saturation ABG Base Excess -4.4 L -6.8 L ABG Hemoglobin 10.1 L 9.9 L Oxyhemoglobin Sodium Potassium Chloride Carbon Dioxide BUN Creatinine Glucose POC Glucose Lactic Acid Calcium Ionized Calcium Phosphorus Magnesium Iron TIBC Ferritin Total Bilirubin Direct Bilirubin AST ALT Alkaline Phosphatase Total Creatine Kinase CK-MB (CK-2) Troponin T C-Reactive Protein Serum Total Protein Total Protein Albumin Qwuzr-6-Vbfzjybgk Meknc-4-Mqstshlsc PEP Interpretation Triglycerides LDL Cholesterol Direct HDL Cholesterol Free T4 PTH Intact Urine WBC (Auto) Urine Creatinine Salicylates Acetaminophen Crossmatch 03/26/19 03/26/19 03/26/19 23:22 Unknown Unknown WBC 19.5 H RBC 3.44 L Hgb 9.8 L Hct 29.9 L MCV MCH MCHC RDW Plt Count 85 L Lymph % (Auto) [place] % (Auto) Eos % (Auto) Lymph # [place] # Eos # Seg Neutrophils % Seg Neuts % (Manual) 95.0 H Lymphocytes % (Manual) 3.0 L Monocytes % (Manual) Eosinophils % (Manual) Nucleated RBC % Seg Neutrophils # Seg Neutrophils # Man 18.5 H Lymphocytes # (Manual) 0.6 L Monocytes # (Manual) Eosinophils # (Manual) PT INR D-Dimer Heparin Anti-Xa Level POC ABG pH ABG pH POC ABG pCO2 POC ABG pO2 ABG pO2 ABG HCO3 ABG O2 Saturation ABG Base Excess ABG Hemoglobin Oxyhemoglobin Sodium 135 L Potassium 5.2 H D Chloride 92.2 L Carbon Dioxide 18 L BUN 109 H Creatinine 8.5 H Glucose 117 H POC Glucose 69 L Lactic Acid Calcium 4.5 L* D Ionized Calcium Phosphorus Magnesium Iron TIBC Ferritin Total Bilirubin Direct Bilirubin AST ALT Alkaline Phosphatase Total Creatine Kinase 4527 H CK-MB (CK-2) Troponin T C-Reactive Protein Serum Total Protein Total Protein Albumin Dawll-6-Oewkrjbry Dyrxu-9-Grfajxxkx PEP Interpretation Triglycerides LDL Cholesterol Direct HDL Cholesterol Free T4 PTH Intact Urine WBC (Auto) Urine Creatinine Salicylates Acetaminophen Crossmatch 03/27/19 03/27/19 03/27/19 04:30 04:30 09:00 WBC 19.2 H RBC 3.42 L Hgb 9.9 L Hct 30.0 L MCV MCH MCHC RDW Plt Count 84 L Lymph % (Auto) [place] % (Auto) Eos % (Auto) Lymph # [place] # Eos # Seg Neutrophils % Seg Neuts % (Manual) Lymphocytes % (Manual) Monocytes % (Manual) Eosinophils % (Manual) Nucleated RBC % Seg Neutrophils # Seg Neutrophils # Man Lymphocytes # (Manual) Monocytes # (Manual) Eosinophils # (Manual) PT INR D-Dimer Heparin Anti-Xa Level POC ABG pH ABG pH POC ABG pCO2 POC ABG pO2 ABG pO2 ABG HCO3 ABG O2 Saturation ABG Base Excess ABG Hemoglobin Oxyhemoglobin Sodium 135 L Potassium Chloride 93.5 L Carbon Dioxide BUN 84 H Creatinine 7.1 H Glucose POC Glucose Lactic Acid Calcium 5.0 L* Ionized Calcium Phosphorus Magnesium Iron TIBC Ferritin Total Bilirubin Direct Bilirubin AST 78 H ALT Alkaline Phosphatase 135 H Total Creatine Kinase 4677 H CK-MB (CK-2) Troponin T C-Reactive Protein Serum Total Protein Total Protein 4.8 L Albumin 2.3 L Fevyw-5-Eismjjoyx Jgbcy-9-Qyuvrdopg PEP Interpretation Triglycerides 409 H LDL Cholesterol Direct HDL Cholesterol Free T4 PTH Intact Urine WBC (Auto) Urine Creatinine Salicylates Acetaminophen Crossmatch 03/27/19 03/27/19 03/27/19 12:37 14:15 14:15 WBC RBC Hgb 9.7 L Hct 29.5 L MCV MCH MCHC RDW Plt Count 87 L Lymph % (Auto) [place] % (Auto) Eos % (Auto) Lymph # [place] # Eos # Seg Neutrophils % Seg Neuts % (Manual) Lymphocytes % (Manual) Monocytes % (Manual) Eosinophils % (Manual) Nucleated RBC % Seg Neutrophils # Seg Neutrophils # Man Lymphocytes # (Manual) Monocytes # (Manual) Eosinophils # (Manual) PT 15.9 H INR 1.30 H D-Dimer Heparin Anti-Xa Level POC ABG pH ABG pH POC ABG pCO2 POC ABG pO2 ABG pO2 ABG HCO3 ABG O2 Saturation ABG Base Excess ABG Hemoglobin Oxyhemoglobin Sodium Potassium Chloride Carbon Dioxide BUN Creatinine Glucose POC Glucose 129 H Lactic Acid Calcium Ionized Calcium Phosphorus Magnesium Iron TIBC Ferritin Total Bilirubin Direct Bilirubin AST ALT Alkaline Phosphatase Total Creatine Kinase CK-MB (CK-2) Troponin T C-Reactive Protein Serum Total Protein Total Protein Albumin Wkziz-4-Orjcvdaha Rcadk-9-Tkdbaivzc PEP Interpretation Triglycerides LDL Cholesterol Direct HDL Cholesterol Free T4 PTH Intact Urine WBC (Auto) Urine Creatinine Salicylates Acetaminophen Crossmatch 03/27/19 03/27/19 03/27/19 18:00 19:22 19:23 WBC RBC Hgb Hct MCV MCH MCHC RDW Plt Count Lymph % (Auto) [place] % (Auto) Eos % (Auto) Lymph # [place] # Eos # Seg Neutrophils % Seg Neuts % (Manual) Lymphocytes % (Manual) Monocytes % (Manual) Eosinophils % (Manual) Nucleated RBC % Seg Neutrophils # Seg Neutrophils # Man Lymphocytes # (Manual) Monocytes # (Manual) Eosinophils # (Manual) PT INR D-Dimer Heparin Anti-Xa Level < 0.10 L POC ABG pH ABG pH POC ABG pCO2 POC ABG pO2 ABG pO2 ABG HCO3 ABG O2 Saturation ABG Base Excess ABG Hemoglobin Oxyhemoglobin Sodium Potassium Chloride Carbon Dioxide BUN Creatinine Glucose POC Glucose 121 H Lactic Acid Calcium Ionized Calcium Phosphorus Magnesium Iron TIBC Ferritin Total Bilirubin Direct Bilirubin AST ALT Alkaline Phosphatase Total Creatine Kinase 4517 H CK-MB (CK-2) Troponin T C-Reactive Protein Serum Total Protein Total Protein Albumin Rcqal-7-Cxvovnppz Kpxei-3-Kewwuqfyr PEP Interpretation Triglycerides LDL Cholesterol Direct HDL Cholesterol Free T4 PTH Intact Urine WBC (Auto) Urine Creatinine Salicylates Acetaminophen Crossmatch 03/27/19 03/27/19 03/28/19 22:10 23:52 03:49 WBC RBC Hgb Hct MCV MCH MCHC RDW Plt Count Lymph % (Auto) [place] % (Auto) Eos % (Auto) Lymph # [place] # Eos # Seg Neutrophils % Seg Neuts % (Manual) Lymphocytes % (Manual) Monocytes % (Manual) Eosinophils % (Manual) Nucleated RBC % Seg Neutrophils # Seg Neutrophils # Man Lymphocytes # (Manual) Monocytes # (Manual) Eosinophils # (Manual) PT INR D-Dimer Heparin Anti-Xa Level POC ABG pH 7.338 L ABG pH POC ABG pCO2 33.1 L POC ABG pO2 ABG pO2 ABG HCO3 ABG O2 Saturation ABG Base Excess ABG Hemoglobin Oxyhemoglobin Sodium Potassium Chloride Carbon Dioxide BUN Creatinine Glucose POC Glucose 113 H 117 H Lactic Acid Calcium Ionized Calcium Phosphorus Magnesium Iron TIBC Ferritin Total Bilirubin Direct Bilirubin AST ALT Alkaline Phosphatase Total Creatine Kinase CK-MB (CK-2) Troponin T C-Reactive Protein Serum Total Protein Total Protein Albumin Ggpvx-5-Gqgppneeh Gmbjw-8-Agpqpgvxe PEP Interpretation Triglycerides LDL Cholesterol Direct HDL Cholesterol Free T4 PTH Intact Urine WBC (Auto) Urine Creatinine Salicylates Acetaminophen Crossmatch 03/28/19 03/28/19 03/28/19 05:13 05:13 06:18 WBC RBC Hgb Hct MCV MCH MCHC RDW Plt Count Lymph % (Auto) [place] % (Auto) Eos % (Auto) Lymph # [place] # Eos # Seg Neutrophils % Seg Neuts % (Manual) Lymphocytes % (Manual) Monocytes % (Manual) Eosinophils % (Manual) Nucleated RBC % Seg Neutrophils # Seg Neutrophils # Man Lymphocytes # (Manual) Monocytes # (Manual) Eosinophils # (Manual) PT INR D-Dimer Heparin Anti-Xa Level 0.23 L POC ABG pH ABG pH POC ABG pCO2 POC ABG pO2 ABG pO2 ABG HCO3 ABG O2 Saturation ABG Base Excess ABG Hemoglobin Oxyhemoglobin Sodium 135 L Potassium 5.5 H D Chloride 95.1 L Carbon Dioxide 16 L D BUN 129 H Creatinine 9.3 H Glucose 158 H POC Glucose 202 H Lactic Acid Calcium 4.0 L* D Ionized Calcium Phosphorus 12.40 H Magnesium Iron TIBC Ferritin Total Bilirubin Direct Bilirubin AST ALT Alkaline Phosphatase Total Creatine Kinase 4266 H CK-MB (CK-2) Troponin T C-Reactive Protein Serum Total Protein Total Protein Albumin Prheu-5-Psgbrmbyj Fpgny-4-Uxkdgwiiw PEP Interpretation Triglycerides LDL Cholesterol Direct HDL Cholesterol Free T4 PTH Intact Urine WBC (Auto) Urine Creatinine Salicylates Acetaminophen Crossmatch 03/28/19 03/28/19 03/28/19 08:25 10:00 12:00 WBC RBC Hgb 4.9 L* D Hct 15.4 L* D MCV MCH MCHC RDW Plt Count Lymph % (Auto) [place] % (Auto) Eos % (Auto) Lymph # [place] # Eos # Seg Neutrophils % Seg Neuts % (Manual) Lymphocytes % (Manual) Monocytes % (Manual) Eosinophils % (Manual) Nucleated RBC % Seg Neutrophils # Seg Neutrophils # Man Lymphocytes # (Manual) Monocytes # (Manual) Eosinophils # (Manual) PT 17.9 H INR 1.52 H D-Dimer 4845.98 H Heparin Anti-Xa Level POC ABG pH ABG pH POC ABG pCO2 POC ABG pO2 ABG pO2 ABG HCO3 ABG O2 Saturation ABG Base Excess ABG Hemoglobin Oxyhemoglobin Sodium Potassium Chloride Carbon Dioxide BUN Creatinine Glucose POC Glucose Lactic Acid Calcium Ionized Calcium Phosphorus Magnesium Iron TIBC Ferritin Total Bilirubin Direct Bilirubin AST ALT Alkaline Phosphatase Total Creatine Kinase CK-MB (CK-2) Troponin T C-Reactive Protein Serum Total Protein Total Protein Albumin Lvlwb-4-Zylufkxop Xuitm-6-Mcubuwnnl PEP Interpretation Triglycerides LDL Cholesterol Direct HDL Cholesterol Free T4 PTH Intact Urine WBC (Auto) Urine Creatinine Salicylates Acetaminophen Crossmatch See Detail 03/28/19 03/28/19 03/28/19 12:28 14:10 17:43 WBC RBC Hgb 5.9 L* Hct 18.3 L* MCV MCH MCHC RDW Plt Count Lymph % (Auto) [place] % (Auto) Eos % (Auto) Lymph # [place] # Eos # Seg Neutrophils % Seg Neuts % (Manual) Lymphocytes % (Manual) Monocytes % (Manual) Eosinophils % (Manual) Nucleated RBC % Seg Neutrophils # Seg Neutrophils # Man Lymphocytes # (Manual) Monocytes # (Manual) Eosinophils # (Manual) PT INR D-Dimer Heparin Anti-Xa Level POC ABG pH ABG pH POC ABG pCO2 POC ABG pO2 ABG pO2 ABG HCO3 ABG O2 Saturation ABG Base Excess ABG Hemoglobin Oxyhemoglobin Sodium Potassium Chloride Carbon Dioxide BUN Creatinine Glucose POC Glucose 153 H 159 H Lactic Acid Calcium Ionized Calcium Phosphorus Magnesium Iron TIBC Ferritin Total Bilirubin Direct Bilirubin AST ALT Alkaline Phosphatase Total Creatine Kinase CK-MB (CK-2) Troponin T C-Reactive Protein Serum Total Protein Total Protein Albumin Ptdxa-4-Rsrftvshp Hjowh-4-Wxkvhspcv PEP Interpretation Triglycerides LDL Cholesterol Direct HDL Cholesterol Free T4 PTH Intact Urine WBC (Auto) Urine Creatinine Salicylates Acetaminophen Crossmatch 03/28/19 03/28/19 03/28/19 18:10 Unknown 23:59 WBC 24.8 H RBC 3.42 L Hgb 10.2 L D Hct 31.1 L D MCV MCH MCHC RDW 15.4 H Plt Count 54 L Lymph % (Auto) [place] % (Auto) Eos % (Auto) Lymph # [place] # Eos # Seg Neutrophils % Seg Neuts % (Manual) 91.0 H Lymphocytes % (Manual) 8.0 L Monocytes % (Manual) Eosinophils % (Manual) Nucleated RBC % Seg Neutrophils # Seg Neutrophils # Man 22.6 H Lymphocytes # (Manual) Monocytes # (Manual) Eosinophils # (Manual) PT INR D-Dimer Heparin Anti-Xa Level POC ABG pH ABG pH POC ABG pCO2 POC ABG pO2 ABG pO2 ABG HCO3 ABG O2 Saturation ABG Base Excess ABG Hemoglobin Oxyhemoglobin Sodium Potassium 5.7 H Chloride Carbon Dioxide BUN Creatinine Glucose POC Glucose 107 H Lactic Acid Calcium Ionized Calcium Phosphorus Magnesium Iron TIBC Ferritin Total Bilirubin Direct Bilirubin AST ALT Alkaline Phosphatase Total Creatine Kinase CK-MB (CK-2) Troponin T C-Reactive Protein Serum Total Protein Total Protein Albumin Hbkyx-7-Jcnozfeab Afwtc-6-Tuanrtwhh PEP Interpretation Triglycerides LDL Cholesterol Direct HDL Cholesterol Free T4 PTH Intact Urine WBC (Auto) Urine Creatinine Salicylates Acetaminophen Crossmatch 03/29/19 03/29/19 03/29/19 04:29 05:46 06:22 WBC RBC Hgb 8.6 L Hct 25.7 L MCV MCH MCHC RDW Plt Count 93 L Lymph % (Auto) [place] % (Auto) Eos % (Auto) Lymph # [place] # Eos # Seg Neutrophils % Seg Neuts % (Manual) Lymphocytes % (Manual) Monocytes % (Manual) Eosinophils % (Manual) Nucleated RBC % Seg Neutrophils # Seg Neutrophils # Man Lymphocytes # (Manual) Monocytes # (Manual) Eosinophils # (Manual) PT INR D-Dimer Heparin Anti-Xa Level POC ABG pH ABG pH POC ABG pCO2 32.2 L POC ABG pO2 ABG pO2 ABG HCO3 ABG O2 Saturation ABG Base Excess ABG Hemoglobin Oxyhemoglobin Sodium Potassium Chloride Carbon Dioxide BUN Creatinine Glucose POC Glucose 113 H Lactic Acid Calcium Ionized Calcium Phosphorus Magnesium Iron TIBC Ferritin Total Bilirubin Direct Bilirubin AST ALT Alkaline Phosphatase Total Creatine Kinase CK-MB (CK-2) Troponin T C-Reactive Protein Serum Total Protein Total Protein Albumin Irnmv-3-Rhhhyrdwi Ydfjt-4-Ebyfciuts PEP Interpretation Triglycerides LDL Cholesterol Direct HDL Cholesterol Free T4 PTH Intact Urine WBC (Auto) Urine Creatinine Salicylates Acetaminophen Crossmatch 03/29/19 03/29/19 03/29/19 06:22 06:22 06:22 WBC 23.2 H RBC 2.91 L Hgb 8.6 L Hct 25.8 L MCV MCH MCHC RDW Plt Count 91 L Lymph % (Auto) [place] % (Auto) Eos % (Auto) Lymph # [place] # Eos # Seg Neutrophils % Seg Neuts % (Manual) Lymphocytes % (Manual) Monocytes % (Manual) Eosinophils % (Manual) Nucleated RBC % Seg Neutrophils # Seg Neutrophils # Man Lymphocytes # (Manual) Monocytes # (Manual) Eosinophils # (Manual) PT INR D-Dimer Heparin Anti-Xa Level POC ABG pH ABG pH POC ABG pCO2 POC ABG pO2 ABG pO2 ABG HCO3 ABG O2 Saturation ABG Base Excess ABG Hemoglobin Oxyhemoglobin Sodium 133 L Potassium Chloride 93.8 L Carbon Dioxide 18 L BUN 109 H Creatinine 7.4 H Glucose 124 H POC Glucose Lactic Acid Calcium 4.6 L* Ionized Calcium Phosphorus Magnesium Iron TIBC Ferritin Total Bilirubin Direct Bilirubin AST ALT Alkaline Phosphatase Total Creatine Kinase 3401 H CK-MB (CK-2) Troponin T C-Reactive Protein Serum Total Protein Total Protein Albumin Sjolz-1-Jfrqzujib Rwras-3-Jyabeoxqw PEP Interpretation Triglycerides 309 H LDL Cholesterol Direct HDL Cholesterol Free T4 PTH Intact Urine WBC (Auto) Urine Creatinine Salicylates Acetaminophen Crossmatch 03/29/19 03/29/19 03/29/19 11:48 11:48 18:24 WBC RBC Hgb 7.8 L Hct 23.2 L MCV MCH MCHC RDW Plt Count Lymph % (Auto) [place] % (Auto) Eos % (Auto) Lymph # [place] # Eos # Seg Neutrophils % Seg Neuts % (Manual) Lymphocytes % (Manual) Monocytes % (Manual) Eosinophils % (Manual) Nucleated RBC % Seg Neutrophils # Seg Neutrophils # Man Lymphocytes # (Manual) Monocytes # (Manual) Eosinophils # (Manual) PT 15.3 H INR 1.24 H D-Dimer Heparin Anti-Xa Level POC ABG pH ABG pH POC ABG pCO2 POC ABG pO2 ABG pO2 ABG HCO3 ABG O2 Saturation ABG Base Excess ABG Hemoglobin Oxyhemoglobin Sodium Potassium Chloride Carbon Dioxide BUN Creatinine Glucose POC Glucose 122 H Lactic Acid Calcium Ionized Calcium Phosphorus Magnesium Iron TIBC Ferritin Total Bilirubin Direct Bilirubin AST ALT Alkaline Phosphatase Total Creatine Kinase CK-MB (CK-2) Troponin T C-Reactive Protein Serum Total Protein Total Protein Albumin Xtqkh-1-Nuptxgupq Oikbi-9-Nbgfsfgyc PEP Interpretation Triglycerides LDL Cholesterol Direct HDL Cholesterol Free T4 PTH Intact Urine WBC (Auto) Urine Creatinine Salicylates Acetaminophen Crossmatch 03/30/19 03/30/19 03/30/19 00:40 04:31 05:04 WBC RBC Hgb 7.6 L Hct 23.0 L MCV MCH MCHC RDW Plt Count Lymph % (Auto) [place] % (Auto) Eos % (Auto) Lymph # [place] # Eos # Seg Neutrophils % Seg Neuts % (Manual) Lymphocytes % (Manual) Monocytes % (Manual) Eosinophils % (Manual) Nucleated RBC % Seg Neutrophils # Seg Neutrophils # Man Lymphocytes # (Manual) Monocytes # (Manual) Eosinophils # (Manual) PT INR D-Dimer Heparin Anti-Xa Level POC ABG pH 7.346 L ABG pH POC ABG pCO2 POC ABG pO2 62 L ABG pO2 ABG HCO3 ABG O2 Saturation ABG Base Excess ABG Hemoglobin Oxyhemoglobin Sodium Potassium Chloride Carbon Dioxide BUN 79 H Creatinine 6.4 H Glucose POC Glucose Lactic Acid Calcium 6.1 L D Ionized Calcium Phosphorus Magnesium Iron TIBC Ferritin Total Bilirubin Direct Bilirubin AST ALT Alkaline Phosphatase Total Creatine Kinase CK-MB (CK-2) Troponin T C-Reactive Protein Serum Total Protein Total Protein Albumin Neyay-5-Zgkzlzxkt Eipbj-8-Dlzrseilx PEP Interpretation Triglycerides LDL Cholesterol Direct HDL Cholesterol Free T4 PTH Intact Urine WBC (Auto) Urine Creatinine Salicylates Acetaminophen Crossmatch 03/30/19 03/30/19 03/30/19 08:45 12:09 22:43 WBC 14.3 H RBC 2.33 L Hgb 7.0 L 7.4 L Hct 21.0 L 22.3 L MCV MCH MCHC RDW 15.6 H Plt Count 135 L Lymph % (Auto) [place] % (Auto) Eos % (Auto) Lymph # [place] # Eos # Seg Neutrophils % Seg Neuts % (Manual) Lymphocytes % (Manual) Monocytes % (Manual) Eosinophils % (Manual) Nucleated RBC % Seg Neutrophils # Seg Neutrophils # Man Lymphocytes # (Manual) Monocytes # (Manual) Eosinophils # (Manual) PT INR D-Dimer Heparin Anti-Xa Level POC ABG pH ABG pH POC ABG pCO2 POC ABG pO2 ABG pO2 ABG HCO3 ABG O2 Saturation ABG Base Excess ABG Hemoglobin Oxyhemoglobin Sodium Potassium Chloride Carbon Dioxide BUN Creatinine Glucose POC Glucose Lactic Acid Calcium Ionized Calcium 3.7 L Phosphorus Magnesium Iron TIBC Ferritin Total Bilirubin Direct Bilirubin AST ALT Alkaline Phosphatase Total Creatine Kinase CK-MB (CK-2) Troponin T C-Reactive Protein Serum Total Protein Total Protein Albumin Exdez-3-Kogmtqold Pbivt-4-Mqzugflyq PEP Interpretation Triglycerides LDL Cholesterol Direct HDL Cholesterol Free T4 PTH Intact Urine WBC (Auto) Urine Creatinine Salicylates Acetaminophen Crossmatch 03/30/19 03/30/19 03/31/19 23:38 Unknown 04:44 WBC 11.5 H RBC 2.40 L Hgb 7.3 L Hct 21.9 L MCV MCH MCHC RDW 15.4 H Plt Count Lymph % (Auto) 10.6 L [place] % (Auto) Eos % (Auto) Lymph # [place] # Eos # Seg Neutrophils % 81.7 H Seg Neuts % (Manual) Lymphocytes % (Manual) Monocytes % (Manual) Eosinophils % (Manual) Nucleated RBC % Seg Neutrophils # 9.4 H Seg Neutrophils # Man Lymphocytes # (Manual) Monocytes # (Manual) Eosinophils # (Manual) PT INR D-Dimer Heparin Anti-Xa Level POC ABG pH ABG pH POC ABG pCO2 POC ABG pO2 ABG pO2 ABG HCO3 ABG O2 Saturation ABG Base Excess ABG Hemoglobin Oxyhemoglobin Sodium Potassium Chloride Carbon Dioxide BUN Creatinine Glucose POC Glucose 155 H Lactic Acid Calcium Ionized Calcium Phosphorus Magnesium Iron TIBC Ferritin Total Bilirubin Direct Bilirubin 0.4 H AST 63 H ALT Alkaline Phosphatase Total Creatine Kinase CK-MB (CK-2) Troponin T C-Reactive Protein Serum Total Protein Total Protein 4.9 L Albumin 2.2 L Oiakp-6-Dlhldijwk Ipzej-2-Xlxrjgwnw PEP Interpretation Triglycerides LDL Cholesterol Direct HDL Cholesterol Free T4 PTH Intact Urine WBC (Auto) Urine Creatinine Salicylates Acetaminophen Crossmatch 03/31/19 03/31/19 03/31/19 04:44 05:44 08:20 WBC RBC Hgb Hct MCV MCH MCHC RDW Plt Count Lymph % (Auto) [place] % (Auto) Eos % (Auto) Lymph # [place] # Eos # Seg Neutrophils % Seg Neuts % (Manual) Lymphocytes % (Manual) Monocytes % (Manual) Eosinophils % (Manual) Nucleated RBC % Seg Neutrophils # Seg Neutrophils # Man Lymphocytes # (Manual) Monocytes # (Manual) Eosinophils # (Manual) PT INR D-Dimer Heparin Anti-Xa Level POC ABG pH ABG pH POC ABG pCO2 53.5 H POC ABG pO2 62 L ABG pO2 ABG HCO3 ABG O2 Saturation ABG Base Excess ABG Hemoglobin Oxyhemoglobin Sodium 135 L Potassium Chloride 96.7 L Carbon Dioxide 19 L BUN 94 H Creatinine 7.8 H Glucose POC Glucose Lactic Acid Calcium 5.3 L* Ionized Calcium Phosphorus 8.20 H Magnesium Iron TIBC Ferritin Total Bilirubin Direct Bilirubin 0.4 H AST 60 H ALT Alkaline Phosphatase Total Creatine Kinase CK-MB (CK-2) Troponin T C-Reactive Protein Serum Total Protein Total Protein 4.8 L Albumin 2.1 L Ggkhz-6-Amkrbaamf Qnmir-2-Calsajnpv PEP Interpretation Triglycerides LDL Cholesterol Direct HDL Cholesterol Free T4 PTH Intact Urine WBC (Auto) Urine Creatinine Salicylates Acetaminophen Crossmatch 03/31/19 04/01/19 04/01/19 22:14 04:27 04:27 WBC RBC 2.60 L Hgb 8.0 L Hct 24.1 L MCV MCH MCHC RDW 15.7 H Plt Count Lymph % (Auto) 7.9 L [place] % (Auto) Eos % (Auto) Lymph # 0.7 L [place] # Eos # Seg Neutrophils % 83.6 H Seg Neuts % (Manual) Lymphocytes % (Manual) Monocytes % (Manual) Eosinophils % (Manual) Nucleated RBC % Seg Neutrophils # Seg Neutrophils # Man Lymphocytes # (Manual) Monocytes # (Manual) Eosinophils # (Manual) PT INR D-Dimer Heparin Anti-Xa Level POC ABG pH 7.286 L ABG pH POC ABG pCO2 54.7 H POC ABG pO2 179 H ABG pO2 ABG HCO3 ABG O2 Saturation ABG Base Excess ABG Hemoglobin Oxyhemoglobin Sodium Potassium Chloride Carbon Dioxide BUN 68 H Creatinine 6.6 H Glucose POC Glucose Lactic Acid Calcium 6.5 L D Ionized Calcium Phosphorus 7.30 H Magnesium Iron TIBC Ferritin Total Bilirubin Direct Bilirubin AST ALT Alkaline Phosphatase Total Creatine Kinase 1652 H CK-MB (CK-2) Troponin T C-Reactive Protein Serum Total Protein Total Protein Albumin Txagb-0-Btvwwzbkj Bbpcl-1-Fmobuhsmh PEP Interpretation Triglycerides LDL Cholesterol Direct HDL Cholesterol Free T4 PTH Intact Urine WBC (Auto) Urine Creatinine Salicylates Acetaminophen Crossmatch 04/01/19 04/01/19 04/01/19 05:14 05:37 18:37 WBC RBC Hgb Hct MCV MCH MCHC RDW Plt Count Lymph % (Auto) [place] % (Auto) Eos % (Auto) Lymph # [place] # Eos # Seg Neutrophils % Seg Neuts % (Manual) Lymphocytes % (Manual) Monocytes % (Manual) Eosinophils % (Manual) Nucleated RBC % Seg Neutrophils # Seg Neutrophils # Man Lymphocytes # (Manual) Monocytes # (Manual) Eosinophils # (Manual) PT INR D-Dimer Heparin Anti-Xa Level POC ABG pH 7.283 L ABG pH POC ABG pCO2 53.4 H POC ABG pO2 241 H ABG pO2 ABG HCO3 ABG O2 Saturation ABG Base Excess ABG Hemoglobin Oxyhemoglobin Sodium Potassium Chloride Carbon Dioxide BUN Creatinine Glucose POC Glucose 111 H 119 H Lactic Acid Calcium Ionized Calcium Phosphorus Magnesium Iron TIBC Ferritin Total Bilirubin Direct Bilirubin AST ALT Alkaline Phosphatase Total Creatine Kinase CK-MB (CK-2) Troponin T C-Reactive Protein Serum Total Protein Total Protein Albumin Oyqug-9-Hiuqdceku Kiclt-0-Ckmebdbur PEP Interpretation Triglycerides LDL Cholesterol Direct HDL Cholesterol Free T4 PTH Intact Urine WBC (Auto) Urine Creatinine Salicylates Acetaminophen Crossmatch 04/01/19 04/02/19 04/02/19 21:28 04:40 05:03 WBC RBC 2.36 L Hgb 7.2 L Hct 21.9 L MCV MCH MCHC RDW 16.0 H Plt Count Lymph % (Auto) 10.8 L [place] % (Auto) Eos % (Auto) Lymph # 0.8 L [place] # Eos # Seg Neutrophils % 80.3 H Seg Neuts % (Manual) Lymphocytes % (Manual) Monocytes % (Manual) Eosinophils % (Manual) Nucleated RBC % Seg Neutrophils # Seg Neutrophils # Man Lymphocytes # (Manual) Monocytes # (Manual) Eosinophils # (Manual) PT INR D-Dimer Heparin Anti-Xa Level POC ABG pH 7.299 L 7.300 L ABG pH POC ABG pCO2 48.2 H 45.2 H POC ABG pO2 133 H 107 H ABG pO2 ABG HCO3 ABG O2 Saturation ABG Base Excess ABG Hemoglobin Oxyhemoglobin Sodium Potassium Chloride Carbon Dioxide BUN Creatinine Glucose POC Glucose Lactic Acid Calcium Ionized Calcium Phosphorus Magnesium Iron TIBC Ferritin Total Bilirubin Direct Bilirubin AST ALT Alkaline Phosphatase Total Creatine Kinase CK-MB (CK-2) Troponin T C-Reactive Protein Serum Total Protein Total Protein Albumin Gosps-0-Iadnxclnh Aelwi-2-Qpknuvqch PEP Interpretation Triglycerides LDL Cholesterol Direct HDL Cholesterol Free T4 PTH Intact Urine WBC (Auto) Urine Creatinine Salicylates Acetaminophen Crossmatch 04/02/19 04/02/19 04/02/19 05:03 05:03 12:15 WBC RBC Hgb 7.4 L Hct 22.6 L MCV MCH MCHC RDW Plt Count Lymph % (Auto) [place] % (Auto) Eos % (Auto) Lymph # [place] # Eos # Seg Neutrophils % Seg Neuts % (Manual) Lymphocytes % (Manual) Monocytes % (Manual) Eosinophils % (Manual) Nucleated RBC % Seg Neutrophils # Seg Neutrophils # Man Lymphocytes # (Manual) Monocytes # (Manual) Eosinophils # (Manual) PT INR D-Dimer Heparin Anti-Xa Level POC ABG pH ABG pH POC ABG pCO2 POC ABG pO2 ABG pO2 ABG HCO3 ABG O2 Saturation ABG Base Excess ABG Hemoglobin Oxyhemoglobin Sodium 136 L Potassium Chloride 97.8 L Carbon Dioxide 18 L BUN 82 H Creatinine 8.2 H Glucose POC Glucose Lactic Acid Calcium 6.7 L Ionized Calcium Phosphorus 7.50 H Magnesium Iron 26 L TIBC 138 L Ferritin 607.0 H Total Bilirubin Direct Bilirubin AST ALT Alkaline Phosphatase Total Creatine Kinase CK-MB (CK-2) Troponin T C-Reactive Protein Serum Total Protein Total Protein Albumin Dxbun-7-Wflvizcyi Ddkgy-6-Ubvnfrksg PEP Interpretation Triglycerides LDL Cholesterol Direct HDL Cholesterol Free T4 PTH Intact Urine WBC (Auto) Urine Creatinine Salicylates Acetaminophen Crossmatch 04/02/19 04/02/19 04/03/19 16:34 17:14 04:18 WBC RBC Hgb Hct MCV MCH MCHC RDW Plt Count Lymph % (Auto) [place] % (Auto) Eos % (Auto) Lymph # [place] # Eos # Seg Neutrophils % Seg Neuts % (Manual) Lymphocytes % (Manual) Monocytes % (Manual) Eosinophils % (Manual) Nucleated RBC % Seg Neutrophils # Seg Neutrophils # Man Lymphocytes # (Manual) Monocytes # (Manual) Eosinophils # (Manual) PT INR D-Dimer Heparin Anti-Xa Level POC ABG pH ABG pH POC ABG pCO2 POC ABG pO2 146 H ABG pO2 ABG HCO3 ABG O2 Saturation ABG Base Excess ABG Hemoglobin Oxyhemoglobin Sodium Potassium Chloride Carbon Dioxide BUN Creatinine Glucose POC Glucose 108 H Lactic Acid Calcium Ionized Calcium Phosphorus Magnesium Iron TIBC Ferritin Total Bilirubin Direct Bilirubin AST ALT Alkaline Phosphatase Total Creatine Kinase CK-MB (CK-2) Troponin T C-Reactive Protein Serum Total Protein Total Protein Albumin Phyqu-1-Oukxdezly Renoi-2-Gbmaeuckw PEP Interpretation Triglycerides LDL Cholesterol Direct HDL Cholesterol Free T4 PTH Intact Urine WBC (Auto) Urine Creatinine Salicylates Acetaminophen Crossmatch See Detail 04/03/19 04/03/19 04/03/19 04:25 08:30 18:24 WBC RBC 2.40 L Hgb 7.3 L Hct 21.9 L MCV MCH MCHC RDW Plt Count Lymph % (Auto) [place] % (Auto) 7.7 H Eos % (Auto) Lymph # 0.9 L [place] # Eos # Seg Neutrophils % 74.6 H Seg Neuts % (Manual) Lymphocytes % (Manual) Monocytes % (Manual) Eosinophils % (Manual) Nucleated RBC % Seg Neutrophils # Seg Neutrophils # Man Lymphocytes # (Manual) Monocytes # (Manual) Eosinophils # (Manual) PT INR D-Dimer Heparin Anti-Xa Level POC ABG pH ABG pH POC ABG pCO2 POC ABG pO2 ABG pO2 ABG HCO3 ABG O2 Saturation ABG Base Excess ABG Hemoglobin Oxyhemoglobin Sodium 136 L Potassium Chloride 97.0 L Carbon Dioxide BUN 58 H Creatinine 7.3 H Glucose POC Glucose 106 H Lactic Acid Calcium 7.5 L Ionized Calcium Phosphorus 5.80 H D Magnesium Iron TIBC Ferritin Total Bilirubin Direct Bilirubin AST ALT Alkaline Phosphatase Total Creatine Kinase CK-MB (CK-2) Troponin T C-Reactive Protein Serum Total Protein Total Protein Albumin Tbcrv-1-Pozmthkei Atdmg-4-Zskeqqxbn PEP Interpretation Triglycerides LDL Cholesterol Direct HDL Cholesterol Free T4 PTH Intact Urine WBC (Auto) Urine Creatinine Salicylates Acetaminophen Crossmatch 04/03/19 04/04/19 04/04/19 23:43 04:47 04:47 WBC RBC 2.72 L Hgb 8.3 L Hct 24.7 L MCV MCH MCHC RDW 15.6 H Plt Count Lymph % (Auto) [place] % (Auto) 10.1 H Eos % (Auto) Lymph # 0.8 L [place] # Eos # Seg Neutrophils % 71.4 H Seg Neuts % (Manual) Lymphocytes % (Manual) Monocytes % (Manual) Eosinophils % (Manual) Nucleated RBC % Seg Neutrophils # Seg Neutrophils # Man Lymphocytes # (Manual) Monocytes # (Manual) Eosinophils # (Manual) PT INR D-Dimer Heparin Anti-Xa Level POC ABG pH ABG pH POC ABG pCO2 POC ABG pO2 ABG pO2 123.8 H ABG HCO3 ABG O2 Saturation ABG Base Excess -3.0 L ABG Hemoglobin 7.9 L Oxyhemoglobin Sodium 134 L Potassium Chloride 97.9 L Carbon Dioxide BUN 64 H Creatinine 8.1 H Glucose POC Glucose Lactic Acid Calcium 7.2 L Ionized Calcium Phosphorus Magnesium Iron TIBC Ferritin Total Bilirubin Direct Bilirubin AST ALT Alkaline Phosphatase Total Creatine Kinase CK-MB (CK-2) Troponin T C-Reactive Protein Serum Total Protein Total Protein Albumin Kdbij-9-Yblfetdby Orlfv-7-Zfakexdst PEP Interpretation Triglycerides LDL Cholesterol Direct HDL Cholesterol Free T4 PTH Intact Urine WBC (Auto) Urine Creatinine Salicylates Acetaminophen Crossmatch 04/04/19 04/04/19 04/04/19 06:07 13:40 18:18 WBC RBC Hgb Hct MCV MCH MCHC RDW Plt Count Lymph % (Auto) [place] % (Auto) Eos % (Auto) Lymph # [place] # Eos # Seg Neutrophils % Seg Neuts % (Manual) Lymphocytes % (Manual) Monocytes % (Manual) Eosinophils % (Manual) Nucleated RBC % Seg Neutrophils # Seg Neutrophils # Man Lymphocytes # (Manual) Monocytes # (Manual) Eosinophils # (Manual) PT INR D-Dimer Heparin Anti-Xa Level POC ABG pH ABG pH POC ABG pCO2 POC ABG pO2 ABG pO2 95.9 H ABG HCO3 ABG O2 Saturation ABG Base Excess -3.0 L ABG Hemoglobin 8.5 L Oxyhemoglobin Sodium Potassium Chloride Carbon Dioxide BUN Creatinine Glucose POC Glucose 107 H 107 H Lactic Acid Calcium Ionized Calcium Phosphorus Magnesium Iron TIBC Ferritin Total Bilirubin Direct Bilirubin AST ALT Alkaline Phosphatase Total Creatine Kinase CK-MB (CK-2) Troponin T C-Reactive Protein Serum Total Protein Total Protein Albumin Rdzas-7-Ayysjbsex Jfjff-7-Udazksadr PEP Interpretation Triglycerides LDL Cholesterol Direct HDL Cholesterol Free T4 PTH Intact Urine WBC (Auto) Urine Creatinine Salicylates Acetaminophen Crossmatch 04/04/19 04/05/19 04/05/19 21:22 04:09 04:09 WBC RBC 2.76 L Hgb 8.4 L Hct 25.4 L MCV MCH MCHC RDW 15.8 H Plt Count 133 L Lymph % (Auto) [place] % (Auto) 9.6 H Eos % (Auto) Lymph # 0.7 L [place] # Eos # Seg Neutrophils % 72.6 H Seg Neuts % (Manual) Lymphocytes % (Manual) Monocytes % (Manual) Eosinophils % (Manual) Nucleated RBC % Seg Neutrophils # Seg Neutrophils # Man Lymphocytes # (Manual) Monocytes # (Manual) Eosinophils # (Manual) PT INR D-Dimer Heparin Anti-Xa Level POC ABG pH ABG pH POC ABG pCO2 47.2 H POC ABG pO2 137 H ABG pO2 ABG HCO3 ABG O2 Saturation ABG Base Excess ABG Hemoglobin Oxyhemoglobin Sodium 136 L Potassium Chloride Carbon Dioxide BUN 46 H Creatinine 6.7 H Glucose POC Glucose Lactic Acid Calcium 7.7 L Ionized Calcium Phosphorus Magnesium Iron TIBC Ferritin Total Bilirubin Direct Bilirubin AST ALT Alkaline Phosphatase Total Creatine Kinase CK-MB (CK-2) Troponin T C-Reactive Protein Serum Total Protein Total Protein Albumin Wmklm-2-Iohflipug Rzhjx-3-Kckkduqeh PEP Interpretation Triglycerides LDL Cholesterol Direct HDL Cholesterol Free T4 PTH Intact Urine WBC (Auto) Urine Creatinine Salicylates Acetaminophen Crossmatch 04/05/19 04/05/19 04/05/19 05:28 06:14 16:50 WBC RBC Hgb Hct MCV MCH MCHC RDW Plt Count Lymph % (Auto) [place] % (Auto) Eos % (Auto) Lymph # [place] # Eos # Seg Neutrophils % Seg Neuts % (Manual) Lymphocytes % (Manual) Monocytes % (Manual) Eosinophils % (Manual) Nucleated RBC % Seg Neutrophils # Seg Neutrophils # Man Lymphocytes # (Manual) Monocytes # (Manual) Eosinophils # (Manual) PT INR D-Dimer Heparin Anti-Xa Level POC ABG pH ABG pH POC ABG pCO2 POC ABG pO2 67 L ABG pO2 ABG HCO3 ABG O2 Saturation ABG Base Excess ABG Hemoglobin Oxyhemoglobin Sodium Potassium Chloride Carbon Dioxide BUN Creatinine Glucose POC Glucose 108 H Lactic Acid Calcium Ionized Calcium Phosphorus Magnesium Iron TIBC Ferritin Total Bilirubin Direct Bilirubin AST ALT Alkaline Phosphatase Total Creatine Kinase CK-MB (CK-2) Troponin T C-Reactive Protein Serum Total Protein Total Protein Albumin Finlo-1-Leafemwpv Mnvcj-8-Ungchojqv PEP Interpretation Triglycerides LDL Cholesterol Direct HDL Cholesterol Free T4 PTH Intact Urine WBC (Auto) 40.0 H Urine Creatinine Salicylates Acetaminophen Crossmatch 04/05/19 04/06/19 04/06/19 17:22 00:13 04:44 WBC RBC 2.48 L Hgb 7.5 L Hct 22.9 L MCV MCH MCHC RDW 16.0 H Plt Count 107 L Lymph % (Auto) [place] % (Auto) 10.7 H Eos % (Auto) Lymph # 1.0 L [place] # Eos # Seg Neutrophils % Seg Neuts % (Manual) Lymphocytes % (Manual) Monocytes % (Manual) Eosinophils % (Manual) Nucleated RBC % Seg Neutrophils # Seg Neutrophils # Man Lymphocytes # (Manual) Monocytes # (Manual) Eosinophils # (Manual) PT INR D-Dimer Heparin Anti-Xa Level POC ABG pH ABG pH POC ABG pCO2 POC ABG pO2 ABG pO2 ABG HCO3 ABG O2 Saturation ABG Base Excess ABG Hemoglobin Oxyhemoglobin Sodium Potassium Chloride Carbon Dioxide BUN Creatinine Glucose POC Glucose 118 H 138 H Lactic Acid Calcium Ionized Calcium Phosphorus Magnesium Iron TIBC Ferritin Total Bilirubin Direct Bilirubin AST ALT Alkaline Phosphatase Total Creatine Kinase CK-MB (CK-2) Troponin T C-Reactive Protein Serum Total Protein Total Protein Albumin Kkwzb-8-Nfaeqsjqu Uzvbg-4-Wcpyyipun PEP Interpretation Triglycerides LDL Cholesterol Direct HDL Cholesterol Free T4 PTH Intact Urine WBC (Auto) Urine Creatinine Salicylates Acetaminophen Crossmatch 04/06/19 04/06/19 04/06/19 04:44 05:20 05:23 WBC RBC Hgb Hct MCV MCH MCHC RDW Plt Count Lymph % (Auto) [place] % (Auto) Eos % (Auto) Lymph # [place] # Eos # Seg Neutrophils % Seg Neuts % (Manual) Lymphocytes % (Manual) Monocytes % (Manual) Eosinophils % (Manual) Nucleated RBC % Seg Neutrophils # Seg Neutrophils # Man Lymphocytes # (Manual) Monocytes # (Manual) Eosinophils # (Manual) PT INR D-Dimer Heparin Anti-Xa Level POC ABG pH ABG pH POC ABG pCO2 POC ABG pO2 ABG pO2 104.0 H ABG HCO3 ABG O2 Saturation ABG Base Excess -2.1 L ABG Hemoglobin 7.3 L Oxyhemoglobin Sodium Potassium Chloride Carbon Dioxide BUN 64 H Creatinine 8.2 H Glucose 103 H POC Glucose 118 H Lactic Acid Calcium 7.3 L Ionized Calcium Phosphorus Magnesium Iron TIBC Ferritin Total Bilirubin Direct Bilirubin AST ALT Alkaline Phosphatase Total Creatine Kinase CK-MB (CK-2) Troponin T C-Reactive Protein Serum Total Protein Total Protein Albumin Whehg-0-Nrewdtszu Akieq-8-Sbgyzjdjz PEP Interpretation Triglycerides LDL Cholesterol Direct HDL Cholesterol Free T4 PTH Intact Urine WBC (Auto) Urine Creatinine Salicylates Acetaminophen Crossmatch 04/06/19 04/07/19 04/07/19 12:02 05:40 05:40 WBC RBC 2.59 L Hgb 7.9 L Hct 23.8 L MCV MCH MCHC RDW 15.8 H Plt Count 89 L Lymph % (Auto) [place] % (Auto) 10.3 H Eos % (Auto) Lymph # 1.1 L [place] # Eos # Seg Neutrophils % Seg Neuts % (Manual) Lymphocytes % (Manual) Monocytes % (Manual) Eosinophils % (Manual) Nucleated RBC % Seg Neutrophils # Seg Neutrophils # Man Lymphocytes # (Manual) Monocytes # (Manual) Eosinophils # (Manual) PT INR D-Dimer Heparin Anti-Xa Level POC ABG pH ABG pH POC ABG pCO2 POC ABG pO2 ABG pO2 ABG HCO3 ABG O2 Saturation ABG Base Excess ABG Hemoglobin Oxyhemoglobin Sodium 136 L Potassium 3.5 L Chloride Carbon Dioxide BUN 46 H Creatinine 6.2 H Glucose POC Glucose 108 H Lactic Acid Calcium 7.9 L Ionized Calcium Phosphorus Magnesium Iron TIBC Ferritin Total Bilirubin Direct Bilirubin AST ALT Alkaline Phosphatase Total Creatine Kinase CK-MB (CK-2) Troponin T C-Reactive Protein Serum Total Protein Total Protein Albumin Exdom-8-Vzzmlhgvi Byspd-5-Zdzcozped PEP Interpretation Triglycerides LDL Cholesterol Direct HDL Cholesterol Free T4 PTH Intact Urine WBC (Auto) Urine Creatinine Salicylates Acetaminophen Crossmatch 04/07/19 04/09/19 04/09/19 12:57 04:28 04:28 WBC RBC 2.85 L Hgb 8.7 L Hct 26.2 L MCV MCH MCHC RDW 15.6 H Plt Count Lymph % (Auto) [place] % (Auto) 10.4 H Eos % (Auto) Lymph # 1.0 L [place] # Eos # Seg Neutrophils % 73.3 H Seg Neuts % (Manual) Lymphocytes % (Manual) Monocytes % (Manual) Eosinophils % (Manual) Nucleated RBC % Seg Neutrophils # Seg Neutrophils # Man Lymphocytes # (Manual) Monocytes # (Manual) Eosinophils # (Manual) PT INR D-Dimer Heparin Anti-Xa Level POC ABG pH ABG pH POC ABG pCO2 POC ABG pO2 107 H ABG pO2 ABG HCO3 ABG O2 Saturation ABG Base Excess ABG Hemoglobin Oxyhemoglobin Sodium Potassium 3.5 L Chloride 97.8 L Carbon Dioxide BUN 62 H Creatinine 8.1 H Glucose POC Glucose Lactic Acid Calcium 8.2 L Ionized Calcium Phosphorus 5.10 H Magnesium Iron TIBC Ferritin Total Bilirubin Direct Bilirubin AST ALT Alkaline Phosphatase Total Creatine Kinase CK-MB (CK-2) Troponin T C-Reactive Protein Serum Total Protein Total Protein Albumin Nzwie-0-Izodrtoqm Mvwtk-1-Lhwotzsko PEP Interpretation Triglycerides LDL Cholesterol Direct HDL Cholesterol Free T4 PTH Intact Urine WBC (Auto) Urine Creatinine Salicylates Acetaminophen Crossmatch 04/10/19 04/11/19 04/11/19 18:15 00:25 04:16 WBC 11.5 H RBC 2.91 L Hgb 8.9 L Hct 27.6 L MCV 95 H MCH MCHC RDW 17.5 H Plt Count Lymph % (Auto) [place] % (Auto) Eos % (Auto) Lymph # [place] # Eos # Seg Neutrophils % Seg Neuts % (Manual) 71.0 H Lymphocytes % (Manual) Monocytes % (Manual) 8.0 H Eosinophils % (Manual) Nucleated RBC % Seg Neutrophils # Seg Neutrophils # Man 8.2 H Lymphocytes # (Manual) Monocytes # (Manual) 0.9 H Eosinophils # (Manual) PT INR D-Dimer Heparin Anti-Xa Level POC ABG pH ABG pH POC ABG pCO2 POC ABG pO2 ABG pO2 ABG HCO3 ABG O2 Saturation ABG Base Excess ABG Hemoglobin Oxyhemoglobin Sodium Potassium Chloride Carbon Dioxide BUN Creatinine Glucose POC Glucose 109 H 114 H Lactic Acid Calcium Ionized Calcium Phosphorus Magnesium Iron TIBC Ferritin Total Bilirubin Direct Bilirubin AST ALT Alkaline Phosphatase Total Creatine Kinase CK-MB (CK-2) Troponin T C-Reactive Protein Serum Total Protein Total Protein Albumin Qattv-2-Lhcvnzhgp Sgwtz-4-Wxblngcfz PEP Interpretation Triglycerides LDL Cholesterol Direct HDL Cholesterol Free T4 PTH Intact Urine WBC (Auto) Urine Creatinine Salicylates Acetaminophen Crossmatch 04/11/19 04/11/19 04/11/19 06:47 09:21 12:15 WBC RBC Hgb Hct MCV MCH MCHC RDW Plt Count Lymph % (Auto) [place] % (Auto) Eos % (Auto) Lymph # [place] # Eos # Seg Neutrophils % Seg Neuts % (Manual) Lymphocytes % (Manual) Monocytes % (Manual) Eosinophils % (Manual) Nucleated RBC % Seg Neutrophils # Seg Neutrophils # Man Lymphocytes # (Manual) Monocytes # (Manual) Eosinophils # (Manual) PT INR D-Dimer Heparin Anti-Xa Level POC ABG pH ABG pH POC ABG pCO2 POC ABG pO2 ABG pO2 ABG HCO3 ABG O2 Saturation ABG Base Excess ABG Hemoglobin Oxyhemoglobin Sodium Potassium 3.5 L Chloride Carbon Dioxide BUN 45 H Creatinine 6.0 H Glucose 113 H POC Glucose 106 H 109 H Lactic Acid Calcium Ionized Calcium Phosphorus Magnesium Iron TIBC Ferritin Total Bilirubin Direct Bilirubin AST ALT Alkaline Phosphatase Total Creatine Kinase CK-MB (CK-2) Troponin T C-Reactive Protein Serum Total Protein Total Protein Albumin Wlmag-3-Trzkvgsnw Qpiie-3-Yvehczkio PEP Interpretation Triglycerides LDL Cholesterol Direct HDL Cholesterol Free T4 PTH Intact Urine WBC (Auto) Urine Creatinine Salicylates Acetaminophen Crossmatch 04/11/19 04/12/19 04/12/19 18:42 12:13 23:52 WBC RBC Hgb Hct MCV MCH MCHC RDW Plt Count Lymph % (Auto) [place] % (Auto) Eos % (Auto) Lymph # [place] # Eos # Seg Neutrophils % Seg Neuts % (Manual) Lymphocytes % (Manual) Monocytes % (Manual) Eosinophils % (Manual) Nucleated RBC % Seg Neutrophils # Seg Neutrophils # Man Lymphocytes # (Manual) Monocytes # (Manual) Eosinophils # (Manual) PT INR D-Dimer Heparin Anti-Xa Level POC ABG pH ABG pH POC ABG pCO2 POC ABG pO2 ABG pO2 ABG HCO3 ABG O2 Saturation ABG Base Excess ABG Hemoglobin Oxyhemoglobin Sodium Potassium Chloride Carbon Dioxide BUN Creatinine Glucose POC Glucose 107 H 115 H 124 H Lactic Acid Calcium Ionized Calcium Phosphorus Magnesium Iron TIBC Ferritin Total Bilirubin Direct Bilirubin AST ALT Alkaline Phosphatase Total Creatine Kinase CK-MB (CK-2) Troponin T C-Reactive Protein Serum Total Protein Total Protein Albumin Yhfcw-8-Tqxbixwcj Elxxs-2-Ibnmiegco PEP Interpretation Triglycerides LDL Cholesterol Direct HDL Cholesterol Free T4 PTH Intact Urine WBC (Auto) Urine Creatinine Salicylates Acetaminophen Crossmatch 04/13/19 04/13/19 04/13/19 05:00 05:00 05:47 WBC 11.7 H RBC 2.97 L Hgb 8.8 L Hct 27.3 L MCV MCH MCHC RDW 16.1 H Plt Count Lymph % (Auto) 9.5 L [place] % (Auto) 9.9 H Eos % (Auto) Lymph # 1.1 L [place] # 1.2 H Eos # Seg Neutrophils % 78.6 H Seg Neuts % (Manual) Lymphocytes % (Manual) Monocytes % (Manual) Eosinophils % (Manual) Nucleated RBC % Seg Neutrophils # 9.2 H Seg Neutrophils # Man Lymphocytes # (Manual) Monocytes # (Manual) Eosinophils # (Manual) PT INR D-Dimer Heparin Anti-Xa Level POC ABG pH ABG pH POC ABG pCO2 POC ABG pO2 ABG pO2 ABG HCO3 ABG O2 Saturation ABG Base Excess ABG Hemoglobin Oxyhemoglobin Sodium Potassium 3.5 L Chloride Carbon Dioxide BUN 42 H Creatinine 4.6 H Glucose 106 H POC Glucose 107 H Lactic Acid Calcium 10.6 H D Ionized Calcium Phosphorus 5.90 H Magnesium Iron TIBC Ferritin Total Bilirubin Direct Bilirubin AST ALT Alkaline Phosphatase Total Creatine Kinase CK-MB (CK-2) Troponin T C-Reactive Protein Serum Total Protein Total Protein 5.8 L Albumin 2.5 L Uyanx-4-Hvucimmdn Sohlh-0-Kvoojaakh PEP Interpretation Triglycerides LDL Cholesterol Direct HDL Cholesterol Free T4 PTH Intact Urine WBC (Auto) Urine Creatinine Salicylates Acetaminophen Crossmatch 04/13/19 04/14/19 04/14/19 17:32 00:00 03:55 WBC RBC Hgb Hct MCV MCH MCHC RDW Plt Count Lymph % (Auto) [place] % (Auto) Eos % (Auto) Lymph # [place] # Eos # Seg Neutrophils % Seg Neuts % (Manual) Lymphocytes % (Manual) Monocytes % (Manual) Eosinophils % (Manual) Nucleated RBC % Seg Neutrophils # Seg Neutrophils # Man Lymphocytes # (Manual) Monocytes # (Manual) Eosinophils # (Manual) PT INR D-Dimer Heparin Anti-Xa Level POC ABG pH ABG pH POC ABG pCO2 POC ABG pO2 ABG pO2 ABG HCO3 ABG O2 Saturation ABG Base Excess ABG Hemoglobin Oxyhemoglobin Sodium Potassium 3.0 L Chloride Carbon Dioxide BUN 30 H Creatinine 3.1 H Glucose POC Glucose 112 H 120 H Lactic Acid Calcium 10.8 H Ionized Calcium Phosphorus Magnesium Iron TIBC Ferritin Total Bilirubin Direct Bilirubin AST ALT Alkaline Phosphatase Total Creatine Kinase CK-MB (CK-2) Troponin T C-Reactive Protein Serum Total Protein Total Protein Albumin Zallw-0-Fujgamhtj Srsms-9-Xrdcmwfhw PEP Interpretation Triglycerides LDL Cholesterol Direct HDL Cholesterol Free T4 PTH Intact Urine WBC (Auto) Urine Creatinine Salicylates Acetaminophen Crossmatch 04/14/19 04/14/19 04/15/19 11:56 23:28 05:11 WBC 13.0 H RBC 2.93 L Hgb 8.6 L Hct 26.5 L MCV MCH MCHC RDW 16.5 H Plt Count Lymph % (Auto) 12.2 L [place] % (Auto) 9.1 H Eos % (Auto) Lymph # [place] # 1.2 H Eos # Seg Neutrophils % 77.6 H Seg Neuts % (Manual) Lymphocytes % (Manual) Monocytes % (Manual) Eosinophils % (Manual) Nucleated RBC % Seg Neutrophils # 10.1 H Seg Neutrophils # Man Lymphocytes # (Manual) Monocytes # (Manual) Eosinophils # (Manual) PT INR D-Dimer Heparin Anti-Xa Level POC ABG pH ABG pH POC ABG pCO2 POC ABG pO2 ABG pO2 ABG HCO3 ABG O2 Saturation ABG Base Excess ABG Hemoglobin Oxyhemoglobin Sodium Potassium Chloride Carbon Dioxide BUN Creatinine Glucose POC Glucose 109 H 112 H Lactic Acid Calcium Ionized Calcium Phosphorus Magnesium Iron TIBC Ferritin Total Bilirubin Direct Bilirubin AST ALT Alkaline Phosphatase Total Creatine Kinase CK-MB (CK-2) Troponin T C-Reactive Protein Serum Total Protein Total Protein Albumin Eqvjj-1-Vitgyzfxj Fdeir-9-Auvsokkii PEP Interpretation Triglycerides LDL Cholesterol Direct HDL Cholesterol Free T4 PTH Intact Urine WBC (Auto) Urine Creatinine Salicylates Acetaminophen Crossmatch 04/15/19 04/15/19 04/15/19 05:11 05:31 18:03 WBC RBC Hgb Hct MCV MCH MCHC RDW Plt Count Lymph % (Auto) [place] % (Auto) Eos % (Auto) Lymph # [place] # Eos # Seg Neutrophils % Seg Neuts % (Manual) Lymphocytes % (Manual) Monocytes % (Manual) Eosinophils % (Manual) Nucleated RBC % Seg Neutrophils # Seg Neutrophils # Man Lymphocytes # (Manual) Monocytes # (Manual) Eosinophils # (Manual) PT INR D-Dimer Heparin Anti-Xa Level POC ABG pH ABG pH POC ABG pCO2 POC ABG pO2 ABG pO2 ABG HCO3 ABG O2 Saturation ABG Base Excess ABG Hemoglobin Oxyhemoglobin Sodium Potassium 3.2 L Chloride Carbon Dioxide BUN 44 H Creatinine 3.6 H Glucose 106 H POC Glucose 110 H 121 H Lactic Acid Calcium 12.0 H Ionized Calcium Phosphorus 5.00 H Magnesium Iron TIBC Ferritin Total Bilirubin Direct Bilirubin AST ALT Alkaline Phosphatase Total Creatine Kinase CK-MB (CK-2) Troponin T C-Reactive Protein Serum Total Protein Total Protein Albumin Sifsc-0-Kimjwwquf Bpvtw-7-Nhwrajrrh PEP Interpretation Triglycerides LDL Cholesterol Direct HDL Cholesterol Free T4 PTH Intact Urine WBC (Auto) Urine Creatinine Salicylates Acetaminophen Crossmatch 04/16/19 04/16/19 04/17/19 05:07 05:07 04:15 WBC 12.6 H RBC 3.12 L Hgb 9.0 L Hct 28.2 L MCV MCH MCHC RDW 16.6 H Plt Count Lymph % (Auto) 10.3 L [place] % (Auto) 9.8 H Eos % (Auto) Lymph # [place] # 1.2 H Eos # Seg Neutrophils % 78.2 H Seg Neuts % (Manual) Lymphocytes % (Manual) Monocytes % (Manual) Eosinophils % (Manual) Nucleated RBC % Seg Neutrophils # 9.9 H Seg Neutrophils # Man Lymphocytes # (Manual) Monocytes # (Manual) Eosinophils # (Manual) PT INR D-Dimer Heparin Anti-Xa Level POC ABG pH ABG pH POC ABG pCO2 POC ABG pO2 ABG pO2 ABG HCO3 ABG O2 Saturation ABG Base Excess ABG Hemoglobin Oxyhemoglobin Sodium 147 H 150 H Potassium 3.5 L 3.1 L Chloride Carbon Dioxide 32 H BUN 54 H 65 H Creatinine 3.8 H 4.0 H Glucose 102 H 107 H POC Glucose Lactic Acid Calcium 11.7 H 12.0 H Ionized Calcium Phosphorus 5.40 H Magnesium Iron TIBC Ferritin Total Bilirubin Direct Bilirubin AST ALT Alkaline Phosphatase Total Creatine Kinase CK-MB (CK-2) Troponin T C-Reactive Protein 7.10 H Serum Total Protein Total Protein Albumin Ymqjb-3-Rvztkxlbd Oekck-8-Klpbuodht PEP Interpretation Triglycerides LDL Cholesterol Direct HDL Cholesterol Free T4 PTH Intact Urine WBC (Auto) Urine Creatinine Salicylates Acetaminophen Crossmatch 04/17/19 04/17/19 04/17/19 04:15 06:05 12:49 WBC 15.8 H RBC 3.32 L Hgb 9.5 L Hct 29.9 L MCV MCH MCHC RDW 16.9 H Plt Count Lymph % (Auto) 12.6 L [place] % (Auto) 11.1 H Eos % (Auto) Lymph # [place] # 1.7 H Eos # Seg Neutrophils % 74.7 H Seg Neuts % (Manual) Lymphocytes % (Manual) Monocytes % (Manual) Eosinophils % (Manual) Nucleated RBC % Seg Neutrophils # 11.8 H Seg Neutrophils # Man Lymphocytes # (Manual) Monocytes # (Manual) Eosinophils # (Manual) PT INR D-Dimer Heparin Anti-Xa Level POC ABG pH ABG pH POC ABG pCO2 POC ABG pO2 ABG pO2 ABG HCO3 ABG O2 Saturation ABG Base Excess ABG Hemoglobin Oxyhemoglobin Sodium Potassium Chloride Carbon Dioxide BUN Creatinine Glucose POC Glucose 111 H 108 H Lactic Acid Calcium Ionized Calcium Phosphorus Magnesium Iron TIBC Ferritin Total Bilirubin Direct Bilirubin AST ALT Alkaline Phosphatase Total Creatine Kinase CK-MB (CK-2) Troponin T C-Reactive Protein Serum Total Protein Total Protein Albumin Wzwsl-6-Rafzitplc Bushv-7-Pmstyqzws PEP Interpretation Triglycerides LDL Cholesterol Direct HDL Cholesterol Free T4 PTH Intact Urine WBC (Auto) Urine Creatinine Salicylates Acetaminophen Crossmatch 04/18/19 04/18/19 04/18/19 00:23 04:41 04:41 WBC 19.4 H RBC 3.03 L Hgb 8.6 L Hct 27.5 L MCV MCH MCHC 31 L RDW 16.9 H Plt Count Lymph % (Auto) [place] % (Auto) Eos % (Auto) Lymph # [place] # Eos # Seg Neutrophils % Seg Neuts % (Manual) Lymphocytes % (Manual) Monocytes % (Manual) Eosinophils % (Manual) Nucleated RBC % Seg Neutrophils # Seg Neutrophils # Man Lymphocytes # (Manual) Monocytes # (Manual) Eosinophils # (Manual) PT INR D-Dimer Heparin Anti-Xa Level POC ABG pH ABG pH POC ABG pCO2 POC ABG pO2 ABG pO2 ABG HCO3 ABG O2 Saturation ABG Base Excess ABG Hemoglobin Oxyhemoglobin Sodium 152 H Potassium 3.0 L Chloride Carbon Dioxide BUN 80 H Creatinine 4.3 H Glucose 103 H POC Glucose 115 H Lactic Acid Calcium 11.4 H Ionized Calcium Phosphorus Magnesium Iron TIBC Ferritin Total Bilirubin Direct Bilirubin AST ALT Alkaline Phosphatase Total Creatine Kinase CK-MB (CK-2) Troponin T C-Reactive Protein Serum Total Protein Total Protein Albumin Cdshq-3-Gazmrdwlo Yfkly-9-Nzlyqqmdu PEP Interpretation Triglycerides LDL Cholesterol Direct HDL Cholesterol Free T4 PTH Intact Urine WBC (Auto) Urine Creatinine Salicylates Acetaminophen Crossmatch 04/18/19 04/18/19 04/18/19 06:17 12:16 18:10 WBC RBC Hgb Hct MCV MCH MCHC RDW Plt Count Lymph % (Auto) [place] % (Auto) Eos % (Auto) Lymph # [place] # Eos # Seg Neutrophils % Seg Neuts % (Manual) Lymphocytes % (Manual) Monocytes % (Manual) Eosinophils % (Manual) Nucleated RBC % Seg Neutrophils # Seg Neutrophils # Man Lymphocytes # (Manual) Monocytes # (Manual) Eosinophils # (Manual) PT INR D-Dimer Heparin Anti-Xa Level POC ABG pH ABG pH POC ABG pCO2 POC ABG pO2 ABG pO2 ABG HCO3 ABG O2 Saturation ABG Base Excess ABG Hemoglobin Oxyhemoglobin Sodium Potassium Chloride Carbon Dioxide BUN Creatinine Glucose POC Glucose 124 H 119 H 111 H Lactic Acid Calcium Ionized Calcium Phosphorus Magnesium Iron TIBC Ferritin Total Bilirubin Direct Bilirubin AST ALT Alkaline Phosphatase Total Creatine Kinase CK-MB (CK-2) Troponin T C-Reactive Protein Serum Total Protein Total Protein Albumin Hhwzk-8-Jcxjlhttu Xjuma-5-Pwxpgxbdi PEP Interpretation Triglycerides LDL Cholesterol Direct HDL Cholesterol Free T4 PTH Intact Urine WBC (Auto) Urine Creatinine Salicylates Acetaminophen Crossmatch 04/19/19 04/19/19 04/20/19 03:49 05:27 09:09 WBC RBC Hgb Hct MCV MCH MCHC RDW Plt Count Lymph % (Auto) [place] % (Auto) Eos % (Auto) Lymph # [place] # Eos # Seg Neutrophils % Seg Neuts % (Manual) Lymphocytes % (Manual) Monocytes % (Manual) Eosinophils % (Manual) Nucleated RBC % Seg Neutrophils # Seg Neutrophils # Man Lymphocytes # (Manual) Monocytes # (Manual) Eosinophils # (Manual) PT INR D-Dimer Heparin Anti-Xa Level POC ABG pH ABG pH POC ABG pCO2 POC ABG pO2 ABG pO2 ABG HCO3 ABG O2 Saturation ABG Base Excess ABG Hemoglobin Oxyhemoglobin Sodium 147 H 150 H Potassium 3.3 L Chloride 108.9 H Carbon Dioxide BUN 45 H 70 H Creatinine 2.9 H 4.1 H Glucose 105 H POC Glucose 124 H Lactic Acid Calcium 10.6 H 11.6 H Ionized Calcium Phosphorus Magnesium Iron TIBC Ferritin Total Bilirubin Direct Bilirubin AST ALT Alkaline Phosphatase Total Creatine Kinase CK-MB (CK-2) Troponin T C-Reactive Protein Serum Total Protein Total Protein Albumin Apliu-7-Wavwiwmav Rnbzz-9-Fysssfxnb PEP Interpretation Triglycerides LDL Cholesterol Direct HDL Cholesterol Free T4 PTH Intact Urine WBC (Auto) Urine Creatinine Salicylates Acetaminophen Crossmatch 04/20/19 04/20/19 04/21/19 12:29 18:45 01:34 WBC RBC Hgb Hct MCV MCH MCHC RDW Plt Count Lymph % (Auto) [place] % (Auto) Eos % (Auto) Lymph # [place] # Eos # Seg Neutrophils % Seg Neuts % (Manual) Lymphocytes % (Manual) Monocytes % (Manual) Eosinophils % (Manual) Nucleated RBC % Seg Neutrophils # Seg Neutrophils # Man Lymphocytes # (Manual) Monocytes # (Manual) Eosinophils # (Manual) PT INR D-Dimer Heparin Anti-Xa Level POC ABG pH ABG pH POC ABG pCO2 POC ABG pO2 ABG pO2 ABG HCO3 ABG O2 Saturation ABG Base Excess ABG Hemoglobin Oxyhemoglobin Sodium Potassium Chloride Carbon Dioxide BUN 40 H Creatinine 2.6 H Glucose 104 H POC Glucose 131 H 134 H Lactic Acid Calcium 11.0 H Ionized Calcium Phosphorus Magnesium Iron TIBC Ferritin Total Bilirubin Direct Bilirubin AST ALT Alkaline Phosphatase Total Creatine Kinase CK-MB (CK-2) Troponin T C-Reactive Protein Serum Total Protein Total Protein Albumin Mraqm-7-Bmggvgkhw Otsxi-0-Qarxnflyx PEP Interpretation Triglycerides LDL Cholesterol Direct HDL Cholesterol Free T4 PTH Intact Urine WBC (Auto) Urine Creatinine Salicylates Acetaminophen Crossmatch 04/21/19 04/21/19 04/22/19 04:22 04:22 04:24 WBC 14.2 H 14.3 H RBC 3.02 L 3.57 L Hgb 8.7 L 10.1 L Hct 27.2 L 32.1 L MCV MCH MCHC RDW 16.7 H 17.2 H Plt Count Lymph % (Auto) [place] % (Auto) Eos % (Auto) Lymph # [place] # Eos # Seg Neutrophils % Seg Neuts % (Manual) Lymphocytes % (Manual) Monocytes % (Manual) Eosinophils % (Manual) Nucleated RBC % Seg Neutrophils # Seg Neutrophils # Man Lymphocytes # (Manual) Monocytes # (Manual) Eosinophils # (Manual) PT INR D-Dimer Heparin Anti-Xa Level POC ABG pH ABG pH POC ABG pCO2 POC ABG pO2 ABG pO2 ABG HCO3 ABG O2 Saturation ABG Base Excess ABG Hemoglobin Oxyhemoglobin Sodium Potassium Chloride Carbon Dioxide BUN Creatinine Glucose POC Glucose Lactic Acid Calcium Ionized Calcium Phosphorus Magnesium Iron TIBC Ferritin Total Bilirubin Direct Bilirubin AST ALT Alkaline Phosphatase Total Creatine Kinase CK-MB (CK-2) Troponin T C-Reactive Protein Serum Total Protein 5.7 L Total Protein Albumin 2.3 L Rxyrv-6-Attrrztrh 0.5 H Kjxwr-4-Pfijtlydo 1.0 H PEP Interpretation see below H Triglycerides LDL Cholesterol Direct HDL Cholesterol Free T4 PTH Intact Urine WBC (Auto) Urine Creatinine Salicylates Acetaminophen Crossmatch 04/22/19 04/22/19 04/22/19 04:24 06:37 11:57 WBC RBC Hgb Hct MCV MCH MCHC RDW Plt Count Lymph % (Auto) [place] % (Auto) Eos % (Auto) Lymph # [place] # Eos # Seg Neutrophils % Seg Neuts % (Manual) Lymphocytes % (Manual) Monocytes % (Manual) Eosinophils % (Manual) Nucleated RBC % Seg Neutrophils # Seg Neutrophils # Man Lymphocytes # (Manual) Monocytes # (Manual) Eosinophils # (Manual) PT INR D-Dimer Heparin Anti-Xa Level POC ABG pH ABG pH POC ABG pCO2 POC ABG pO2 ABG pO2 ABG HCO3 ABG O2 Saturation ABG Base Excess ABG Hemoglobin Oxyhemoglobin Sodium Potassium Chloride Carbon Dioxide BUN 54 H Creatinine 3.5 H Glucose POC Glucose 113 H 110 H Lactic Acid Calcium 11.4 H Ionized Calcium Phosphorus Magnesium Iron TIBC Ferritin Total Bilirubin Direct Bilirubin AST ALT Alkaline Phosphatase Total Creatine Kinase CK-MB (CK-2) Troponin T C-Reactive Protein Serum Total Protein Total Protein Albumin Hgfnb-8-Pvwrzhfes Oigrq-7-Lwvhwxqjr PEP Interpretation Triglycerides LDL Cholesterol Direct HDL Cholesterol Free T4 PTH Intact Urine WBC (Auto) Urine Creatinine Salicylates Acetaminophen Crossmatch 04/22/19 04/23/19 04/23/19 18:33 04:06 04:06 WBC 16.1 H RBC 3.36 L Hgb 9.8 L Hct 30.8 L MCV MCH MCHC RDW 17.7 H Plt Count Lymph % (Auto) 9.9 L [place] % (Auto) Eos % (Auto) Lymph # [place] # Eos # Seg Neutrophils % 84.2 H Seg Neuts % (Manual) Lymphocytes % (Manual) Monocytes % (Manual) Eosinophils % (Manual) Nucleated RBC % Seg Neutrophils # 13.6 H Seg Neutrophils # Man Lymphocytes # (Manual) Monocytes # (Manual) Eosinophils # (Manual) PT INR D-Dimer Heparin Anti-Xa Level POC ABG pH ABG pH POC ABG pCO2 POC ABG pO2 ABG pO2 ABG HCO3 ABG O2 Saturation ABG Base Excess ABG Hemoglobin Oxyhemoglobin Sodium Potassium Chloride Carbon Dioxide BUN 59 H Creatinine 3.8 H Glucose POC Glucose 120 H Lactic Acid Calcium 12.3 H* Ionized Calcium Phosphorus 5.70 H Magnesium Iron TIBC Ferritin Total Bilirubin Direct Bilirubin AST ALT Alkaline Phosphatase Total Creatine Kinase CK-MB (CK-2) Troponin T C-Reactive Protein Serum Total Protein Total Protein Albumin 3.2 L Bebpp-9-Uoqjhukcp Jsfxi-6-Dstecvtkn PEP Interpretation Triglycerides LDL Cholesterol Direct HDL Cholesterol Free T4 PTH Intact Urine WBC (Auto) Urine Creatinine Salicylates Acetaminophen Crossmatch 04/23/19 04/24/19 04/24/19 18:06 04:12 04:12 WBC 18.0 H RBC 3.46 L Hgb 9.8 L Hct 31.2 L MCV MCH MCHC 31 L RDW 17.5 H Plt Count Lymph % (Auto) 11.1 L [place] % (Auto) Eos % (Auto) Lymph # [place] # Eos # Seg Neutrophils % 81.9 H Seg Neuts % (Manual) Lymphocytes % (Manual) Monocytes % (Manual) Eosinophils % (Manual) Nucleated RBC % Seg Neutrophils # 14.7 H Seg Neutrophils # Man Lymphocytes # (Manual) Monocytes # (Manual) Eosinophils # (Manual) PT INR D-Dimer Heparin Anti-Xa Level POC ABG pH ABG pH POC ABG pCO2 POC ABG pO2 ABG pO2 ABG HCO3 ABG O2 Saturation ABG Base Excess ABG Hemoglobin Oxyhemoglobin Sodium Potassium Chloride Carbon Dioxide BUN 56 H Creatinine 3.6 H Glucose POC Glucose 124 H Lactic Acid Calcium 12.6 H* Ionized Calcium Phosphorus Magnesium Iron TIBC Ferritin Total Bilirubin Direct Bilirubin AST ALT Alkaline Phosphatase Total Creatine Kinase CK-MB (CK-2) Troponin T C-Reactive Protein Serum Total Protein Total Protein Albumin 3.2 L Gends-7-Gesjvprjs Ulhct-0-Egqlpvgzn PEP Interpretation Triglycerides LDL Cholesterol Direct HDL Cholesterol Free T4 PTH Intact Urine WBC (Auto) Urine Creatinine Salicylates Acetaminophen Crossmatch 04/24/19 04/24/19 04/25/19 06:21 11:47 05:58 WBC 18.0 H RBC 2.98 L Hgb 8.3 L Hct 26.5 L MCV MCH MCHC 31 L RDW 17.9 H Plt Count Lymph % (Auto) 10.1 L [place] % (Auto) Eos % (Auto) Lymph # [place] # 0.9 H Eos # Seg Neutrophils % 82.8 H Seg Neuts % (Manual) Lymphocytes % (Manual) Monocytes % (Manual) Eosinophils % (Manual) Nucleated RBC % Seg Neutrophils # 15.0 H Seg Neutrophils # Man Lymphocytes # (Manual) Monocytes # (Manual) Eosinophils # (Manual) PT INR D-Dimer Heparin Anti-Xa Level POC ABG pH ABG pH POC ABG pCO2 POC ABG pO2 ABG pO2 ABG HCO3 ABG O2 Saturation ABG Base Excess ABG Hemoglobin Oxyhemoglobin Sodium Potassium Chloride Carbon Dioxide BUN Creatinine Glucose POC Glucose 132 H 106 H Lactic Acid Calcium Ionized Calcium Phosphorus Magnesium Iron TIBC Ferritin Total Bilirubin Direct Bilirubin AST ALT Alkaline Phosphatase Total Creatine Kinase CK-MB (CK-2) Troponin T C-Reactive Protein Serum Total Protein Total Protein Albumin Ijbqy-5-Hxqykgaqk Rofcm-5-Aoxseogua PEP Interpretation Triglycerides LDL Cholesterol Direct HDL Cholesterol Free T4 PTH Intact Urine WBC (Auto) Urine Creatinine Salicylates Acetaminophen Crossmatch 04/25/19 04/26/19 04/26/19 05:58 05:57 06:08 WBC RBC Hgb Hct MCV MCH MCHC RDW Plt Count Lymph % (Auto) [place] % (Auto) Eos % (Auto) Lymph # [place] # Eos # Seg Neutrophils % Seg Neuts % (Manual) Lymphocytes % (Manual) Monocytes % (Manual) Eosinophils % (Manual) Nucleated RBC % Seg Neutrophils # Seg Neutrophils # Man Lymphocytes # (Manual) Monocytes # (Manual) Eosinophils # (Manual) PT INR D-Dimer Heparin Anti-Xa Level POC ABG pH ABG pH POC ABG pCO2 POC ABG pO2 ABG pO2 ABG HCO3 ABG O2 Saturation ABG Base Excess ABG Hemoglobin Oxyhemoglobin Sodium Potassium 3.2 L Chloride Carbon Dioxide BUN 52 H 48 H Creatinine 3.2 H 2.9 H Glucose 108 H 112 H POC Glucose 109 H Lactic Acid Calcium 11.4 H 12.5 H* Ionized Calcium Phosphorus 5.90 H Magnesium Iron TIBC Ferritin Total Bilirubin Direct Bilirubin AST ALT Alkaline Phosphatase Total Creatine Kinase CK-MB (CK-2) Troponin T C-Reactive Protein Serum Total Protein Total Protein Albumin 3.0 L Rluma-9-Wdbcueuaz Dntjg-7-Lzlbvamiq PEP Interpretation Triglycerides LDL Cholesterol Direct HDL Cholesterol Free T4 PTH Intact Urine WBC (Auto) Urine Creatinine Salicylates Acetaminophen Crossmatch 04/26/19 04/26/19 04/27/19 07:22 13:39 05:05 WBC 11.9 H RBC 3.01 L Hgb 8.6 L Hct 26.3 L MCV MCH MCHC RDW 17.6 H Plt Count Lymph % (Auto) 11.9 L [place] % (Auto) Eos % (Auto) Lymph # [place] # Eos # Seg Neutrophils % 78.3 H Seg Neuts % (Manual) Lymphocytes % (Manual) Monocytes % (Manual) Eosinophils % (Manual) Nucleated RBC % Seg Neutrophils # 9.4 H Seg Neutrophils # Man Lymphocytes # (Manual) Monocytes # (Manual) Eosinophils # (Manual) PT INR D-Dimer Heparin Anti-Xa Level POC ABG pH ABG pH POC ABG pCO2 POC ABG pO2 ABG pO2 ABG HCO3 ABG O2 Saturation ABG Base Excess ABG Hemoglobin Oxyhemoglobin Sodium Potassium Chloride Carbon Dioxide BUN 46 H Creatinine 2.8 H Glucose POC Glucose Lactic Acid Calcium > 13.0 H* 12.2 H* Ionized Calcium Phosphorus Magnesium Iron TIBC Ferritin Total Bilirubin Direct Bilirubin AST ALT Alkaline Phosphatase Total Creatine Kinase CK-MB (CK-2) Troponin T C-Reactive Protein Serum Total Protein Total Protein Albumin Xiwtf-4-Vswhgdgda Goesp-3-Uoiqittee PEP Interpretation Triglycerides LDL Cholesterol Direct HDL Cholesterol Free T4 PTH Intact Urine WBC (Auto) Urine Creatinine Salicylates Acetaminophen Crossmatch 04/27/19 04/28/19 04/29/19 05:05 05:17 14:14 WBC RBC Hgb Hct MCV MCH MCHC RDW Plt Count Lymph % (Auto) [place] % (Auto) Eos % (Auto) Lymph # [place] # Eos # Seg Neutrophils % Seg Neuts % (Manual) Lymphocytes % (Manual) Monocytes % (Manual) Eosinophils % (Manual) Nucleated RBC % Seg Neutrophils # Seg Neutrophils # Man Lymphocytes # (Manual) Monocytes # (Manual) Eosinophils # (Manual) PT INR D-Dimer Heparin Anti-Xa Level POC ABG pH ABG pH POC ABG pCO2 POC ABG pO2 ABG pO2 ABG HCO3 ABG O2 Saturation ABG Base Excess ABG Hemoglobin Oxyhemoglobin Sodium 136 L Potassium 3.2 L 3.4 L Chloride Carbon Dioxide BUN 40 H 34 H 33 H Creatinine 2.5 H 2.0 H 1.9 H Glucose 113 H 107 H POC Glucose Lactic Acid Calcium 12.3 H* 12.1 H* 11.5 H Ionized Calcium Phosphorus Magnesium Iron TIBC Ferritin Total Bilirubin Direct Bilirubin AST ALT Alkaline Phosphatase Total Creatine Kinase CK-MB (CK-2) Troponin T C-Reactive Protein Serum Total Protein Total Protein 6.2 L Albumin 2.8 L Kcksw-6-Vkjlcokni Pnlls-2-Goalbtqsl PEP Interpretation Triglycerides LDL Cholesterol Direct HDL Cholesterol Free T4 PTH Intact Urine WBC (Auto) Urine Creatinine Salicylates Acetaminophen Crossmatch 04/29/19 04/29/19 04/30/19 14:14 14:14 06:47 WBC RBC Hgb Hct MCV MCH MCHC RDW Plt Count Lymph % (Auto) [place] % (Auto) Eos % (Auto) Lymph # [place] # Eos # Seg Neutrophils % Seg Neuts % (Manual) Lymphocytes % (Manual) Monocytes % (Manual) Eosinophils % (Manual) Nucleated RBC % Seg Neutrophils # Seg Neutrophils # Man Lymphocytes # (Manual) Monocytes # (Manual) Eosinophils # (Manual) PT INR D-Dimer Heparin Anti-Xa Level POC ABG pH ABG pH POC ABG pCO2 POC ABG pO2 ABG pO2 ABG HCO3 ABG O2 Saturation ABG Base Excess ABG Hemoglobin Oxyhemoglobin Sodium Potassium 3.2 L Chloride Carbon Dioxide 21 L BUN 26 H Creatinine 1.8 H Glucose POC Glucose Lactic Acid Calcium 10.8 H Ionized Calcium 7.2 H* Phosphorus Magnesium Iron TIBC Ferritin Total Bilirubin Direct Bilirubin AST ALT Alkaline Phosphatase Total Creatine Kinase CK-MB (CK-2) Troponin T C-Reactive Protein Serum Total Protein Total Protein Albumin Rddgt-9-Rylojbhnv Izvme-0-Fwcphvacc PEP Interpretation Triglycerides LDL Cholesterol Direct HDL Cholesterol Free T4 PTH Intact 8.83 L Urine WBC (Auto) Urine Creatinine Salicylates Acetaminophen Crossmatch 04/30/19 05/01/19 05/01/19 12:17 06:52 06:52 WBC 15.4 H RBC 3.01 L Hgb 8.4 L Hct 26.2 L MCV MCH MCHC RDW 17.0 H Plt Count Lymph % (Auto) 8.4 L [place] % (Auto) 8.9 H Eos % (Auto) Lymph # [place] # 1.4 H Eos # 0.5 H Seg Neutrophils % 78.7 H Seg Neuts % (Manual) Lymphocytes % (Manual) Monocytes % (Manual) Eosinophils % (Manual) Nucleated RBC % Seg Neutrophils # 12.1 H Seg Neutrophils # Man Lymphocytes # (Manual) Monocytes # (Manual) Eosinophils # (Manual) PT INR D-Dimer Heparin Anti-Xa Level POC ABG pH ABG pH POC ABG pCO2 POC ABG pO2 ABG pO2 ABG HCO3 ABG O2 Saturation ABG Base Excess ABG Hemoglobin Oxyhemoglobin Sodium Potassium 3.0 L Chloride Carbon Dioxide BUN 22 H Creatinine Glucose POC Glucose 106 H Lactic Acid Calcium 11.2 H Ionized Calcium Phosphorus Magnesium Iron TIBC Ferritin Total Bilirubin Direct Bilirubin AST ALT Alkaline Phosphatase Total Creatine Kinase CK-MB (CK-2) Troponin T C-Reactive Protein Serum Total Protein Total Protein Albumin 3.0 L Kbupo-2-Yvjjkraxv Xrcsw-4-Nicdgagxg PEP Interpretation Triglycerides LDL Cholesterol Direct HDL Cholesterol Free T4 PTH Intact Urine WBC (Auto) Urine Creatinine Salicylates Acetaminophen Crossmatch 05/01/19 05/01/19 05/02/19 06:52 18:40 05:32 WBC RBC Hgb Hct MCV MCH MCHC RDW Plt Count Lymph % (Auto) [place] % (Auto) Eos % (Auto) Lymph # [place] # Eos # Seg Neutrophils % Seg Neuts % (Manual) Lymphocytes % (Manual) Monocytes % (Manual) Eosinophils % (Manual) Nucleated RBC % Seg Neutrophils # Seg Neutrophils # Man Lymphocytes # (Manual) Monocytes # (Manual) Eosinophils # (Manual) PT INR D-Dimer Heparin Anti-Xa Level POC ABG pH ABG pH POC ABG pCO2 POC ABG pO2 ABG pO2 ABG HCO3 ABG O2 Saturation ABG Base Excess ABG Hemoglobin Oxyhemoglobin Sodium Potassium Chloride Carbon Dioxide BUN Creatinine Glucose POC Glucose 169 H 109 H Lactic Acid Calcium Ionized Calcium Phosphorus Magnesium Iron TIBC Ferritin Total Bilirubin Direct Bilirubin AST ALT Alkaline Phosphatase Total Creatine Kinase CK-MB (CK-2) Troponin T C-Reactive Protein Serum Total Protein 5.7 L Total Protein Albumin 2.5 L Plxcv-6-Cgraqpdtg 0.5 H Ezyay-2-Akafonyip PEP Interpretation see below H Triglycerides LDL Cholesterol Direct HDL Cholesterol Free T4 PTH Intact Urine WBC (Auto) Urine Creatinine Salicylates Acetaminophen Crossmatch 05/02/19 05/02/19 05/02/19 05:57 05:57 11:43 WBC 14.2 H RBC 2.96 L Hgb 8.3 L Hct 26.0 L MCV MCH MCHC RDW 16.8 H Plt Count Lymph % (Auto) [place] % (Auto) Eos % (Auto) Lymph # [place] # Eos # Seg Neutrophils % Seg Neuts % (Manual) Lymphocytes % (Manual) Monocytes % (Manual) Eosinophils % (Manual) Nucleated RBC % Seg Neutrophils # Seg Neutrophils # Man Lymphocytes # (Manual) Monocytes # (Manual) Eosinophils # (Manual) PT INR D-Dimer Heparin Anti-Xa Level POC ABG pH ABG pH POC ABG pCO2 POC ABG pO2 ABG pO2 ABG HCO3 ABG O2 Saturation ABG Base Excess ABG Hemoglobin Oxyhemoglobin Sodium 136 L Potassium 3.5 L Chloride Carbon Dioxide BUN 21 H Creatinine Glucose POC Glucose 108 H Lactic Acid Calcium 11.1 H Ionized Calcium Phosphorus Magnesium Iron TIBC Ferritin Total Bilirubin Direct Bilirubin AST ALT Alkaline Phosphatase Total Creatine Kinase CK-MB (CK-2) Troponin T C-Reactive Protein Serum Total Protein Total Protein Albumin Jnywz-7-Tyfkenatl Ugfkx-5-Yboockmwj PEP Interpretation Triglycerides LDL Cholesterol Direct HDL Cholesterol Free T4 PTH Intact Urine WBC (Auto) Urine Creatinine Salicylates Acetaminophen Crossmatch 05/03/19 05/03/19 05/04/19 05:37 05:37 06:49 WBC 12.7 H 11.1 H RBC 3.01 L 3.07 L Hgb 8.3 L 8.6 L Hct 26.1 L 26.6 L MCV MCH MCHC RDW 16.9 H 17.3 H Plt Count Lymph % (Auto) [place] % (Auto) 9.0 H Eos % (Auto) 4.9 H Lymph # [place] # 1.0 H Eos # 0.5 H Seg Neutrophils % Seg Neuts % (Manual) Lymphocytes % (Manual) Monocytes % (Manual) Eosinophils % (Manual) Nucleated RBC % Seg Neutrophils # 7.8 H Seg Neutrophils # Man Lymphocytes # (Manual) Monocytes # (Manual) Eosinophils # (Manual) PT INR D-Dimer Heparin Anti-Xa Level POC ABG pH ABG pH POC ABG pCO2 POC ABG pO2 ABG pO2 ABG HCO3 ABG O2 Saturation ABG Base Excess ABG Hemoglobin Oxyhemoglobin Sodium 135 L Potassium 3.3 L Chloride Carbon Dioxide BUN Creatinine Glucose POC Glucose Lactic Acid Calcium 10.9 H Ionized Calcium Phosphorus Magnesium 1.50 L Iron TIBC Ferritin Total Bilirubin Direct Bilirubin AST ALT Alkaline Phosphatase Total Creatine Kinase CK-MB (CK-2) Troponin T C-Reactive Protein Serum Total Protein Total Protein Albumin Jotdk-7-Xicljqkzb Ktdwn-5-Xcyisdlnc PEP Interpretation Triglycerides LDL Cholesterol Direct HDL Cholesterol Free T4 PTH Intact Urine WBC (Auto) Urine Creatinine Salicylates Acetaminophen Crossmatch 05/04/19 05/04/19 05/04/19 06:49 06:49 11:58 WBC RBC Hgb Hct MCV MCH MCHC RDW Plt Count Lymph % (Auto) [place] % (Auto) Eos % (Auto) Lymph # [place] # Eos # Seg Neutrophils % Seg Neuts % (Manual) Lymphocytes % (Manual) Monocytes % (Manual) Eosinophils % (Manual) Nucleated RBC % Seg Neutrophils # Seg Neutrophils # Man Lymphocytes # (Manual) Monocytes # (Manual) Eosinophils # (Manual) PT 15.5 H INR 1.24 H D-Dimer Heparin Anti-Xa Level POC ABG pH ABG pH POC ABG pCO2 POC ABG pO2 ABG pO2 ABG HCO3 ABG O2 Saturation ABG Base Excess ABG Hemoglobin Oxyhemoglobin Sodium Potassium Chloride Carbon Dioxide 19 L BUN Creatinine Glucose POC Glucose 111 H Lactic Acid Calcium 10.7 H Ionized Calcium Phosphorus Magnesium Iron TIBC Ferritin Total Bilirubin Direct Bilirubin AST ALT Alkaline Phosphatase Total Creatine Kinase CK-MB (CK-2) Troponin T C-Reactive Protein Serum Total Protein Total Protein Albumin Qiemk-2-Udktgopqz Kcgws-2-Jelsckysj PEP Interpretation Triglycerides LDL Cholesterol Direct HDL Cholesterol Free T4 PTH Intact Urine WBC (Auto) Urine Creatinine Salicylates Acetaminophen Crossmatch 05/05/19 05/05/19 05/07/19 06:14 06:14 05:55 WBC 11.5 H 12.0 H RBC 3.08 L 3.33 L Hgb 8.5 L 9.2 L Hct 26.5 L 28.5 L MCV MCH MCHC RDW 17.1 H 17.6 H Plt Count Lymph % (Auto) [place] % (Auto) Eos % (Auto) 8.2 H Lymph # [place] # Eos # 1.0 H Seg Neutrophils % Seg Neuts % (Manual) Lymphocytes % (Manual) Monocytes % (Manual) Eosinophils % (Manual) Nucleated RBC % Seg Neutrophils # 8.2 H Seg Neutrophils # Man Lymphocytes # (Manual) Monocytes # (Manual) Eosinophils # (Manual) PT INR D-Dimer Heparin Anti-Xa Level POC ABG pH ABG pH POC ABG pCO2 POC ABG pO2 ABG pO2 ABG HCO3 ABG O2 Saturation ABG Base Excess ABG Hemoglobin Oxyhemoglobin Sodium 136 L Potassium Chloride Carbon Dioxide 21 L BUN Creatinine Glucose POC Glucose Lactic Acid Calcium 10.3 H Ionized Calcium Phosphorus Magnesium Iron TIBC Ferritin Total Bilirubin Direct Bilirubin AST ALT Alkaline Phosphatase Total Creatine Kinase CK-MB (CK-2) Troponin T C-Reactive Protein Serum Total Protein Total Protein Albumin Ceocp-2-Cglykxojq Otysa-1-Mtqbvlvwh PEP Interpretation Triglycerides LDL Cholesterol Direct HDL Cholesterol Free T4 PTH Intact Urine WBC (Auto) Urine Creatinine Salicylates Acetaminophen Crossmatch 05/07/19 05/08/19 05/08/19 05:55 07:27 07:27 WBC 12.5 H RBC 3.50 L Hgb 9.4 L Hct 30.4 L MCV MCH 27 L MCHC 31 L RDW 17.2 H Plt Count Lymph % (Auto) [place] % (Auto) Eos % (Auto) 10.3 H Lymph # [place] # Eos # 1.3 H Seg Neutrophils % Seg Neuts % (Manual) Lymphocytes % (Manual) Monocytes % (Manual) Eosinophils % (Manual) Nucleated RBC % Seg Neutrophils # 8.7 H Seg Neutrophils # Man Lymphocytes # (Manual) Monocytes # (Manual) Eosinophils # (Manual) PT INR D-Dimer Heparin Anti-Xa Level POC ABG pH ABG pH POC ABG pCO2 POC ABG pO2 ABG pO2 ABG HCO3 ABG O2 Saturation ABG Base Excess ABG Hemoglobin Oxyhemoglobin Sodium Potassium 3.5 L Chloride Carbon Dioxide 20 L 20 L BUN Creatinine Glucose POC Glucose Lactic Acid Calcium 10.7 H 10.7 H Ionized Calcium Phosphorus Magnesium Iron TIBC Ferritin Total Bilirubin Direct Bilirubin AST ALT Alkaline Phosphatase Total Creatine Kinase CK-MB (CK-2) Troponin T C-Reactive Protein Serum Total Protein Total Protein Albumin 3.2 L 3.4 L Vcswj-5-Ilvbqsbhh Zswrn-6-Jqcfioqub PEP Interpretation Triglycerides LDL Cholesterol Direct HDL Cholesterol Free T4 PTH Intact Urine WBC (Auto) Urine Creatinine Salicylates Acetaminophen Crossmatch 05/09/19 05/09/19 05/10/19 05:41 05:41 06:42 WBC 11.7 H RBC 3.27 L Hgb 9.2 L Hct 27.9 L MCV MCH MCHC RDW 17.8 H Plt Count Lymph % (Auto) [place] % (Auto) Eos % (Auto) 14.3 H Lymph # [place] # Eos # 1.7 H Seg Neutrophils % Seg Neuts % (Manual) Lymphocytes % (Manual) Monocytes % (Manual) Eosinophils % (Manual) Nucleated RBC % Seg Neutrophils # Seg Neutrophils # Man Lymphocytes # (Manual) Monocytes # (Manual) Eosinophils # (Manual) PT INR 1.17 H D-Dimer Heparin Anti-Xa Level POC ABG pH ABG pH POC ABG pCO2 POC ABG pO2 ABG pO2 ABG HCO3 ABG O2 Saturation ABG Base Excess ABG Hemoglobin Oxyhemoglobin Sodium 136 L Potassium Chloride Carbon Dioxide 21 L BUN Creatinine Glucose POC Glucose Lactic Acid Calcium 10.6 H Ionized Calcium Phosphorus Magnesium Iron TIBC Ferritin Total Bilirubin Direct Bilirubin AST ALT Alkaline Phosphatase Total Creatine Kinase CK-MB (CK-2) Troponin T C-Reactive Protein Serum Total Protein Total Protein Albumin 3.3 L Mlntp-1-Diebbvkni Twnfp-7-Bzyvhcdbk PEP Interpretation Triglycerides LDL Cholesterol Direct HDL Cholesterol Free T4 PTH Intact Urine WBC (Auto) Urine Creatinine Salicylates Acetaminophen Crossmatch 05/10/19 05/11/19 05/13/19 06:42 04:40 08:32 WBC 11.8 H RBC 3.48 L Hgb 9.5 L Hct 30.0 L MCV MCH 27 L MCHC RDW 18.0 H Plt Count Lymph % (Auto) [place] % (Auto) Eos % (Auto) Lymph # [place] # Eos # Seg Neutrophils % Seg Neuts % (Manual) 73.0 H Lymphocytes % (Manual) 11.0 L Monocytes % (Manual) Eosinophils % (Manual) 12.0 H Nucleated RBC % Seg Neutrophils # Seg Neutrophils # Man 8.6 H Lymphocytes # (Manual) Monocytes # (Manual) Eosinophils # (Manual) 1.4 H PT INR D-Dimer Heparin Anti-Xa Level POC ABG pH ABG pH POC ABG pCO2 POC ABG pO2 ABG pO2 ABG HCO3 ABG O2 Saturation ABG Base Excess ABG Hemoglobin Oxyhemoglobin Sodium Potassium Chloride Carbon Dioxide 21 L 20 L BUN Creatinine Glucose POC Glucose Lactic Acid Calcium Ionized Calcium Phosphorus Magnesium Iron TIBC Ferritin Total Bilirubin Direct Bilirubin AST ALT Alkaline Phosphatase Total Creatine Kinase CK-MB (CK-2) Troponin T C-Reactive Protein Serum Total Protein Total Protein Albumin Xpshh-6-Qmmjyjyny Mmzjx-7-Foflkoguf PEP Interpretation Triglycerides LDL Cholesterol Direct HDL Cholesterol Free T4 PTH Intact Urine WBC (Auto) Urine Creatinine Salicylates Acetaminophen Crossmatch 05/13/19 08:32 WBC RBC Hgb Hct MCV MCH MCHC RDW Plt Count Lymph % (Auto) [place] % (Auto) Eos % (Auto) Lymph # [place] # Eos # Seg Neutrophils % Seg Neuts % (Manual) Lymphocytes % (Manual) Monocytes % (Manual) Eosinophils % (Manual) Nucleated RBC % Seg Neutrophils # Seg Neutrophils # Man Lymphocytes # (Manual) Monocytes # (Manual) Eosinophils # (Manual) PT INR D-Dimer Heparin Anti-Xa Level POC ABG pH ABG pH POC ABG pCO2 POC ABG pO2 ABG pO2 ABG HCO3 ABG O2 Saturation ABG Base Excess ABG Hemoglobin Oxyhemoglobin Sodium Potassium Chloride Carbon Dioxide 17 L BUN Creatinine Glucose POC Glucose Lactic Acid Calcium Ionized Calcium Phosphorus Magnesium 1.60 L Iron TIBC Ferritin Total Bilirubin Direct Bilirubin AST ALT Alkaline Phosphatase Total Creatine Kinase CK-MB (CK-2) Troponin T C-Reactive Protein Serum Total Protein Total Protein Albumin 3.3 L Ohorn-8-Diinsizse Iacrb-1-Beyucjljh PEP Interpretation Triglycerides LDL Cholesterol Direct HDL Cholesterol Free T4 PTH Intact Urine WBC (Auto) Urine Creatinine Salicylates Acetaminophen Crossmatch Allied health notes reviewed: nursing
[2019-05-14] MEDS: HYDROcodone/ACETAMINOPHEN 5-325 MG TAB PO PRN ×2 (09:26→18:27)
[2019-05-14] MEDS: METOPROLOL SUCCINATE XL 50 MG TAB PO SCH (09:27)
[2019-05-14] MEDS: PANTOPRAZOLE 40 MG TAB PO SCH ×2 (09:27→21:50)
[2019-05-14 09:36] LABS: BUN/Creatinine Ratio 15; Blood Urea Nitrogen 16 mg/dL (9-20); Calcium 9.8 mg/dL (8.4-10.2); Hemolysis Index 2
--- NOTE | 2019-05-14 14:07 | Progress Note ---
Assessment and Plan Severe sepsis with shock, resolved. Right axilla abscess versus localized pannus/fatty collection. Acute hypoxemic respiratory failure, s/p mechanical ventilator support. Likely aspiration pneumonia, bilateral. Morbid obesity. Acute kidney injury secondary to ATN s/p HD. Leukocytosis-resolved Elevated serum transaminases/possible shock liver-- Resolved. Acute encephalopathy, toxic metabolic- resolved Thrombocytopenia- etiology, multifactorial- resolved RIJ non-occlusive thrombus Oropharyngeal dysphagia Acute blood loss anemia with hemorrhagic shock- resolved Critical illness myopathy Hypernatremia-resolved Continue all supportive care -wean FiO2 for O2 sats>92% -prn ABG and CXR - Continue to monitor off antibiotics per [place]. 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 hypoxemic resp failure; Renzo. PNA; Rhabdomyolysis; RUBEN Interval history: Patient is seen today for: Severe sepsis with shock; Acute hypoxemic respiratory failure; Aspiration pneumonia; Morbid obesity; Rhabdomyolysis; Acute kidney injury; Morbid obesity; Elevated serum transaminases/possible shock liver; Acute encephalopathy (Toxic/Met) Seen and examined at bedside; 24hour events reviewed; nursing and respiratory care staff consulted; no adverse overnight events reported to me; resting peacefully in bed; denies any chest pain, no shortness of breath. Just tired and weak, has bilateral foot drop. Is working with PT/OT Vitals, labs, medications, chart and imaging reviewed. Objective Vital Signs - 12hr 05/14/19 05/14/19 04:50 11:41 Temperature 97.6 F 97.4 F L Pulse Rate 77 95 H Respiratory 20 20 Rate Blood Pressure 126/86 104/71 O2 Sat by Pulse 96 97 Oximetry Constitutional: alert Eyes: non-icteric ENT: oropharynx moist, other Neck: supple, no lymphadenopathy, no JVD, other (large neck circumference) Effort: normal Ascultation: Bilateral: diminished breath sounds, rales, rhonchi (scant) Percussion: Bilateral: not dull Cardiovascular: regular rate and rhythm, other ( S1,S2) Gastrointestinal: normoactive bowel sounds, soft, non-tender, non-distended, other (obese) Integumentary: normal Extremities: no cyanosis, pink and warm, pulses normal, no ischemia or petechiae Neurologic: normal mental status, non-focal exam (grossly), pupils equal and round, CN II-XII normal, other (very weak, bilateral foot drop) Psychiatric: mood appropriate, affect normal CBC and BMP: 05/13/19 08:32 05/14/19 08:12 ABG, PT/INR, D-dimer: ABG POC ABG pH 7.401 (7.35-7.45) 04/07/19 12:57 ABG pH 7.388 pH Units (7.350-7.450) 04/06/19 05:20 POC ABG pCO2 41.5 (35-45) 04/07/19 12:57 ABG pCO2 38.5 mm Hg 04/06/19 05:20 POC ABG pO2 107 (80-105) H 04/07/19 12:57 ABG pO2 104.0 mm Hg (80.0-90.0) H 04/06/19 05:20 POC ABG HCO3 25.7 (22-26 mml/L) 04/07/19 12:57 POC ABG Total CO2 27 (23-27mmol/L) 04/07/19 12:57 POC ABG O2 Sat 98 04/07/19 12:57 ABG O2 Saturation 97.8 % (95.0-99.0) 04/06/19 05:20 PT/INR, D-dimer PT 14.8 Sec. (12.2-14.9) 05/10/19 06:42 INR 1.17 (0.87-1.13) H 05/10/19 06:42 D-Dimer 4845.98 ng/mlDDU (0-234) H 03/28/19 12:00 Abnormal lab findings: Abnormal Labs 03/16/19 03/16/19 03/16/19 15:32 16:03 16:05 WBC 27.0 H RBC 5.55 H Hgb 15.7 H Hct 47.1 H MCV MCH MCHC RDW Plt Count 75 L Lymph % (Auto) [place] % (Auto) Eos % (Auto) Lymph # [place] # Eos # Seg Neutrophils % Seg Neuts % (Manual) 85.0 H Lymphocytes % (Manual) 2.0 L Monocytes % (Manual) Eosinophils % (Manual) Nucleated RBC % Seg Neutrophils # Seg Neutrophils # Man 23.0 H Lymphocytes # (Manual) 0.5 L Monocytes # (Manual) Eosinophils # (Manual) PT INR D-Dimer Heparin Anti-Xa Level POC ABG pH ABG pH POC ABG pCO2 POC ABG pO2 ABG pO2 ABG HCO3 ABG O2 Saturation ABG Base Excess ABG Hemoglobin Oxyhemoglobin Sodium 127 L Potassium Chloride 87.8 L Carbon Dioxide 17 L BUN 49 H Creatinine 5.8 H Glucose 150 H POC Glucose 118 H Lactic Acid Calcium 6.6 L Ionized Calcium Phosphorus Magnesium 1.10 L Iron TIBC Ferritin Total Bilirubin Direct Bilirubin AST ALT Alkaline Phosphatase Total Creatine Kinase 46060 H CK-MB (CK-2) Troponin T C-Reactive Protein Serum Total Protein Total Protein Albumin Vkalg-0-Xvsoiroff Zwaqq-8-Zlsemgogr PEP Interpretation Triglycerides LDL Cholesterol Direct HDL Cholesterol Free T4 PTH Intact Urine WBC (Auto) Urine Creatinine Salicylates Acetaminophen Crossmatch 03/16/19 03/16/19 03/16/19 16:59 17:05 17:05 WBC RBC Hgb Hct MCV MCH MCHC RDW Plt Count Lymph % (Auto) [place] % (Auto) Eos % (Auto) Lymph # [place] # Eos # Seg Neutrophils % Seg Neuts % (Manual) Lymphocytes % (Manual) Monocytes % (Manual) Eosinophils % (Manual) Nucleated RBC % Seg Neutrophils # Seg Neutrophils # Man Lymphocytes # (Manual) Monocytes # (Manual) Eosinophils # (Manual) PT INR D-Dimer Heparin Anti-Xa Level POC ABG pH 7.297 L ABG pH POC ABG pCO2 33.0 L POC ABG pO2 ABG pO2 ABG HCO3 ABG O2 Saturation ABG Base Excess ABG Hemoglobin Oxyhemoglobin Sodium Potassium Chloride Carbon Dioxide BUN Creatinine Glucose POC Glucose Lactic Acid Calcium Ionized Calcium Phosphorus Magnesium Iron TIBC Ferritin Total Bilirubin Direct Bilirubin AST ALT Alkaline Phosphatase Total Creatine Kinase 73426 H CK-MB (CK-2) 83.1 H Troponin T C-Reactive Protein Serum Total Protein Total Protein Albumin Grhic-7-Yxocxbyta Trjrz-2-Vmuoftwan PEP Interpretation Triglycerides LDL Cholesterol Direct HDL Cholesterol Free T4 0.72 L PTH Intact Urine WBC (Auto) Urine Creatinine Salicylates Acetaminophen Crossmatch 03/16/19 03/16/19 03/16/19 17:05 17:05 17:05 WBC RBC Hgb Hct MCV MCH MCHC RDW Plt Count Lymph % (Auto) [place] % (Auto) Eos % (Auto) Lymph # [place] # Eos # Seg Neutrophils % Seg Neuts % (Manual) Lymphocytes % (Manual) Monocytes % (Manual) Eosinophils % (Manual) Nucleated RBC % Seg Neutrophils # Seg Neutrophils # Man Lymphocytes # (Manual) Monocytes # (Manual) Eosinophils # (Manual) PT INR D-Dimer Heparin Anti-Xa Level POC ABG pH ABG pH POC ABG pCO2 POC ABG pO2 ABG pO2 ABG HCO3 ABG O2 Saturation ABG Base Excess ABG Hemoglobin Oxyhemoglobin Sodium Potassium Chloride Carbon Dioxide BUN Creatinine Glucose POC Glucose Lactic Acid 5.10 H* Calcium Ionized Calcium Phosphorus Magnesium Iron TIBC Ferritin Total Bilirubin Direct Bilirubin AST ALT Alkaline Phosphatase Total Creatine Kinase CK-MB (CK-2) Troponin T C-Reactive Protein Serum Total Protein Total Protein Albumin Hmfjk-5-Aplpmycqj Vzybl-5-Mjokzdeqj PEP Interpretation Triglycerides LDL Cholesterol Direct HDL Cholesterol Free T4 PTH Intact Urine WBC (Auto) Urine Creatinine Salicylates < 0.3 L Acetaminophen < 5.0 L Crossmatch 03/16/19 03/16/19 03/16/19 17:05 17:05 20:35 WBC RBC Hgb Hct MCV MCH MCHC RDW Plt Count Lymph % (Auto) [place] % (Auto) Eos % (Auto) Lymph # [place] # Eos # Seg Neutrophils % Seg Neuts % (Manual) Lymphocytes % (Manual) Monocytes % (Manual) Eosinophils % (Manual) Nucleated RBC % Seg Neutrophils # Seg Neutrophils # Man Lymphocytes # (Manual) Monocytes # (Manual) Eosinophils # (Manual) PT 15.9 H INR 1.30 H D-Dimer Heparin Anti-Xa Level POC ABG pH ABG pH POC ABG pCO2 POC ABG pO2 ABG pO2 ABG HCO3 ABG O2 Saturation ABG Base Excess ABG Hemoglobin Oxyhemoglobin Sodium Potassium Chloride Carbon Dioxide BUN Creatinine Glucose POC Glucose Lactic Acid 3.30 H* Calcium Ionized Calcium Phosphorus Magnesium Iron TIBC Ferritin Total Bilirubin 6.20 H Direct Bilirubin 5.9 H AST 800 H ALT 120 H Alkaline Phosphatase Total Creatine Kinase CK-MB (CK-2) Troponin T C-Reactive Protein Serum Total Protein Total Protein 4.4 L Albumin 2.4 L Kkzes-2-Duutptsig Nzxtm-2-Xsmpoxjjj PEP Interpretation Triglycerides LDL Cholesterol Direct HDL Cholesterol Free T4 PTH Intact Urine WBC (Auto) Urine Creatinine Salicylates Acetaminophen Crossmatch 03/16/19 03/16/19 03/16/19 21:45 22:32 Unknown WBC RBC Hgb Hct MCV MCH MCHC RDW Plt Count Lymph % (Auto) [place] % (Auto) Eos % (Auto) Lymph # [place] # Eos # Seg Neutrophils % Seg Neuts % (Manual) Lymphocytes % (Manual) Monocytes % (Manual) Eosinophils % (Manual) Nucleated RBC % Seg Neutrophils # Seg Neutrophils # Man Lymphocytes # (Manual) Monocytes # (Manual) Eosinophils # (Manual) PT INR D-Dimer Heparin Anti-Xa Level POC ABG pH ABG pH POC ABG pCO2 POC ABG pO2 ABG pO2 ABG HCO3 ABG O2 Saturation ABG Base Excess ABG Hemoglobin Oxyhemoglobin Sodium Potassium Chloride Carbon Dioxide BUN Creatinine Glucose POC Glucose Lactic Acid 3.30 H* 3.00 H* Calcium Ionized Calcium Phosphorus Magnesium Iron TIBC Ferritin Total Bilirubin Direct Bilirubin AST ALT Alkaline Phosphatase Total Creatine Kinase CK-MB (CK-2) Troponin T 0.047 H D C-Reactive Protein Serum Total Protein Total Protein Albumin Yduno-9-Dmacshsfy Omsmh-5-Bynfaeeet PEP Interpretation Triglycerides 395 H LDL Cholesterol Direct 10 L HDL Cholesterol 7 L Free T4 PTH Intact Urine WBC (Auto) Urine Creatinine Salicylates Acetaminophen Crossmatch 03/17/19 03/17/19 03/17/19 03:45 03:45 03:45 WBC RBC Hgb Hct MCV MCH MCHC RDW Plt Count Lymph % (Auto) [place] % (Auto) Eos % (Auto) Lymph # [place] # Eos # Seg Neutrophils % Seg Neuts % (Manual) Lymphocytes % (Manual) Monocytes % (Manual) Eosinophils % (Manual) Nucleated RBC % Seg Neutrophils # Seg Neutrophils # Man Lymphocytes # (Manual) Monocytes # (Manual) Eosinophils # (Manual) PT INR D-Dimer Heparin Anti-Xa Level POC ABG pH ABG pH POC ABG pCO2 POC ABG pO2 ABG pO2 ABG HCO3 ABG O2 Saturation ABG Base Excess ABG Hemoglobin Oxyhemoglobin Sodium 131 L Potassium Chloride 88.9 L Carbon Dioxide BUN 53 H Creatinine 7.1 H Glucose POC Glucose Lactic Acid 4.10 H* Calcium 5.4 L* D Ionized Calcium Phosphorus 7.30 H Magnesium 1.60 L Iron TIBC Ferritin Total Bilirubin 5.90 H Direct Bilirubin AST 801 H ALT 109 H Alkaline Phosphatase Total Creatine Kinase 29592 H 78279 H CK-MB (CK-2) 41.5 H Troponin T 0.054 H C-Reactive Protein Serum Total Protein Total Protein 4.5 L Albumin 2.0 L Cnlwf-6-Yhnzqipsv Ettkd-6-Tqlvbxawt PEP Interpretation Triglycerides LDL Cholesterol Direct HDL Cholesterol Free T4 PTH Intact Urine WBC (Auto) Urine Creatinine Salicylates Acetaminophen Crossmatch 03/17/19 03/17/19 03/17/19 05:47 07:16 07:16 WBC RBC Hgb Hct MCV MCH MCHC RDW Plt Count Lymph % (Auto) [place] % (Auto) Eos % (Auto) Lymph # [place] # Eos # Seg Neutrophils % Seg Neuts % (Manual) Lymphocytes % (Manual) Monocytes % (Manual) Eosinophils % (Manual) Nucleated RBC % Seg Neutrophils # Seg Neutrophils # Man Lymphocytes # (Manual) Monocytes # (Manual) Eosinophils # (Manual) PT INR D-Dimer Heparin Anti-Xa Level POC ABG pH 7.193 L ABG pH POC ABG pCO2 45.2 H POC ABG pO2 65 L ABG pO2 ABG HCO3 ABG O2 Saturation ABG Base Excess ABG Hemoglobin Oxyhemoglobin Sodium Potassium Chloride Carbon Dioxide BUN Creatinine Glucose POC Glucose Lactic Acid 5.50 H* Calcium Ionized Calcium Phosphorus Magnesium Iron TIBC Ferritin Total Bilirubin Direct Bilirubin AST ALT Alkaline Phosphatase Total Creatine Kinase 20387 H CK-MB (CK-2) 54.3 H Troponin T 0.058 H C-Reactive Protein Serum Total Protein Total Protein Albumin Cgvyx-3-Wnlviyukl Rehor-5-Uxtzyzdmr PEP Interpretation Triglycerides LDL Cholesterol Direct HDL Cholesterol Free T4 PTH Intact Urine WBC (Auto) Urine Creatinine Salicylates Acetaminophen Crossmatch 03/17/19 03/17/19 03/17/19 11:52 12:51 13:01 WBC RBC Hgb Hct MCV MCH MCHC RDW Plt Count Lymph % (Auto) [place] % (Auto) Eos % (Auto) Lymph # [place] # Eos # Seg Neutrophils % Seg Neuts % (Manual) Lymphocytes % (Manual) Monocytes % (Manual) Eosinophils % (Manual) Nucleated RBC % Seg Neutrophils # Seg Neutrophils # Man Lymphocytes # (Manual) Monocytes # (Manual) Eosinophils # (Manual) PT INR D-Dimer Heparin Anti-Xa Level POC ABG pH 7.154 L ABG pH POC ABG pCO2 34.3 L POC ABG pO2 73 L ABG pO2 ABG HCO3 ABG O2 Saturation ABG Base Excess ABG Hemoglobin Oxyhemoglobin Sodium Potassium Chloride Carbon Dioxide BUN Creatinine Glucose POC Glucose 60 L Lactic Acid 8.20 H* Calcium Ionized Calcium Phosphorus Magnesium Iron TIBC Ferritin Total Bilirubin Direct Bilirubin AST ALT Alkaline Phosphatase Total Creatine Kinase CK-MB (CK-2) Troponin T C-Reactive Protein Serum Total Protein Total Protein Albumin Culmo-4-Fyeoxuimp Gbxsn-3-Mlvyuxmlg PEP Interpretation Triglycerides LDL Cholesterol Direct HDL Cholesterol Free T4 PTH Intact Urine WBC (Auto) Urine Creatinine Salicylates Acetaminophen Crossmatch 03/17/19 03/17/19 03/17/19 14:37 14:37 14:37 WBC 29.3 H RBC Hgb Hct MCV MCH MCHC RDW 15.8 H Plt Count 45 L Lymph % (Auto) [place] % (Auto) Eos % (Auto) Lymph # [place] # Eos # Seg Neutrophils % Seg Neuts % (Manual) 81.0 H Lymphocytes % (Manual) 1.0 L Monocytes % (Manual) 15.0 H Eosinophils % (Manual) Nucleated RBC % Seg Neutrophils # Seg Neutrophils # Man 23.7 H Lymphocytes # (Manual) 0.3 L Monocytes # (Manual) 4.4 H Eosinophils # (Manual) PT INR D-Dimer Heparin Anti-Xa Level POC ABG pH ABG pH POC ABG pCO2 POC ABG pO2 ABG pO2 ABG HCO3 ABG O2 Saturation ABG Base Excess ABG Hemoglobin Oxyhemoglobin Sodium Potassium Chloride Carbon Dioxide BUN Creatinine Glucose POC Glucose Lactic Acid 4.90 H* Calcium Ionized Calcium Phosphorus Magnesium Iron TIBC Ferritin Total Bilirubin Direct Bilirubin AST ALT Alkaline Phosphatase Total Creatine Kinase CK-MB (CK-2) Troponin T C-Reactive Protein 24.90 H Serum Total Protein Total Protein Albumin Gzjcq-1-Jqqwdlboi Kfror-3-Kxzhjsgvs PEP Interpretation Triglycerides LDL Cholesterol Direct HDL Cholesterol Free T4 PTH Intact Urine WBC (Auto) Urine Creatinine Salicylates Acetaminophen Crossmatch 03/17/19 03/17/19 03/17/19 16:05 16:05 17:02 WBC RBC Hgb Hct MCV MCH MCHC RDW Plt Count Lymph % (Auto) [place] % (Auto) Eos % (Auto) Lymph # [place] # Eos # Seg Neutrophils % Seg Neuts % (Manual) Lymphocytes % (Manual) Monocytes % (Manual) Eosinophils % (Manual) Nucleated RBC % Seg Neutrophils # Seg Neutrophils # Man Lymphocytes # (Manual) Monocytes # (Manual) Eosinophils # (Manual) PT INR D-Dimer Heparin Anti-Xa Level POC ABG pH 7.183 L ABG pH POC ABG pCO2 POC ABG pO2 65 L ABG pO2 ABG HCO3 ABG O2 Saturation ABG Base Excess ABG Hemoglobin Oxyhemoglobin Sodium Potassium Chloride Carbon Dioxide BUN Creatinine Glucose POC Glucose Lactic Acid Calcium Ionized Calcium Phosphorus Magnesium Iron TIBC Ferritin Total Bilirubin Direct Bilirubin AST ALT Alkaline Phosphatase Total Creatine Kinase CK-MB (CK-2) Troponin T C-Reactive Protein Serum Total Protein Total Protein Albumin Gpbbf-1-Dpzrhqwsb Tbbjy-9-Mrwlkeais PEP Interpretation Triglycerides LDL Cholesterol Direct HDL Cholesterol Free T4 PTH Intact Urine WBC (Auto) 30.0 H Urine Creatinine 106.6 H Salicylates Acetaminophen Crossmatch 03/18/19 03/18/19 03/18/19 05:12 05:16 05:53 WBC RBC Hgb Hct MCV MCH MCHC RDW Plt Count Lymph % (Auto) [place] % (Auto) Eos % (Auto) Lymph # [place] # Eos # Seg Neutrophils % Seg Neuts % (Manual) Lymphocytes % (Manual) Monocytes % (Manual) Eosinophils % (Manual) Nucleated RBC % Seg Neutrophils # Seg Neutrophils # Man Lymphocytes # (Manual) Monocytes # (Manual) Eosinophils # (Manual) PT INR D-Dimer Heparin Anti-Xa Level POC ABG pH 7.257 L ABG pH POC ABG pCO2 31.6 L POC ABG pO2 69 L ABG pO2 ABG HCO3 ABG O2 Saturation ABG Base Excess ABG Hemoglobin Oxyhemoglobin Sodium Potassium Chloride Carbon Dioxide BUN Creatinine Glucose POC Glucose 141 H Lactic Acid 5.00 H* Calcium Ionized Calcium Phosphorus Magnesium Iron TIBC Ferritin Total Bilirubin Direct Bilirubin AST ALT Alkaline Phosphatase Total Creatine Kinase CK-MB (CK-2) Troponin T C-Reactive Protein Serum Total Protein Total Protein Albumin Qgwzo-0-Nvfbzyfcn Fdgdk-0-Fonqvpuhc PEP Interpretation Triglycerides LDL Cholesterol Direct HDL Cholesterol Free T4 PTH Intact Urine WBC (Auto) Urine Creatinine Salicylates Acetaminophen Crossmatch 03/18/19 03/18/19 03/18/19 06:57 08:40 08:40 WBC 31.7 H RBC Hgb Hct MCV MCH MCHC RDW 15.5 H Plt Count 35 L Lymph % (Auto) [place] % (Auto) Eos % (Auto) Lymph # [place] # Eos # Seg Neutrophils % Seg Neuts % (Manual) Lymphocytes % (Manual) Monocytes % (Manual) Eosinophils % (Manual) Nucleated RBC % Seg Neutrophils # Seg Neutrophils # Man Lymphocytes # (Manual) Monocytes # (Manual) Eosinophils # (Manual) PT INR D-Dimer Heparin Anti-Xa Level POC ABG pH ABG pH POC ABG pCO2 POC ABG pO2 ABG pO2 ABG HCO3 ABG O2 Saturation ABG Base Excess ABG Hemoglobin Oxyhemoglobin Sodium 132 L Potassium 5.5 H D Chloride 88.5 L Carbon Dioxide 18 L BUN 71 H Creatinine 8.1 H Glucose 205 H POC Glucose Lactic Acid 5.00 H* Calcium 4.1 L* D Ionized Calcium Phosphorus Magnesium 2.40 H Iron TIBC Ferritin Total Bilirubin 7.50 H Direct Bilirubin AST 1088 H ALT 159 H Alkaline Phosphatase 190 H Total Creatine Kinase 592789 H CK-MB (CK-2) Troponin T C-Reactive Protein Serum Total Protein Total Protein 4.7 L Albumin 1.8 L Sqluf-8-Kmhgmqwdn Ptivw-0-Xmogmnhvg PEP Interpretation Triglycerides LDL Cholesterol Direct HDL Cholesterol Free T4 PTH Intact Urine WBC (Auto) Urine Creatinine Salicylates Acetaminophen Crossmatch 03/18/19 03/18/19 03/18/19 12:33 12:50 13:19 WBC RBC Hgb Hct MCV MCH MCHC RDW Plt Count Lymph % (Auto) [place] % (Auto) Eos % (Auto) Lymph # [place] # Eos # Seg Neutrophils % Seg Neuts % (Manual) Lymphocytes % (Manual) Monocytes % (Manual) Eosinophils % (Manual) Nucleated RBC % Seg Neutrophils # Seg Neutrophils # Man Lymphocytes # (Manual) Monocytes # (Manual) Eosinophils # (Manual) PT INR D-Dimer Heparin Anti-Xa Level POC ABG pH 7.282 L ABG pH POC ABG pCO2 POC ABG pO2 67 L ABG pO2 ABG HCO3 ABG O2 Saturation ABG Base Excess ABG Hemoglobin Oxyhemoglobin Sodium Potassium Chloride Carbon Dioxide BUN Creatinine Glucose POC Glucose 129 H Lactic Acid 3.30 H* Calcium Ionized Calcium Phosphorus Magnesium Iron TIBC Ferritin Total Bilirubin Direct Bilirubin AST ALT Alkaline Phosphatase Total Creatine Kinase CK-MB (CK-2) Troponin T C-Reactive Protein Serum Total Protein Total Protein Albumin Jhpwj-2-Jguneaugy Zhnvr-3-Bjopspekz PEP Interpretation Triglycerides LDL Cholesterol Direct HDL Cholesterol Free T4 PTH Intact Urine WBC (Auto) Urine Creatinine Salicylates Acetaminophen Crossmatch 03/18/19 03/18/19 03/18/19 13:19 16:50 18:11 WBC RBC Hgb Hct MCV MCH MCHC RDW Plt Count Lymph % (Auto) [place] % (Auto) Eos % (Auto) Lymph # [place] # Eos # Seg Neutrophils % Seg Neuts % (Manual) Lymphocytes % (Manual) Monocytes % (Manual) Eosinophils % (Manual) Nucleated RBC % Seg Neutrophils # Seg Neutrophils # Man Lymphocytes # (Manual) Monocytes # (Manual) Eosinophils # (Manual) PT INR D-Dimer Heparin Anti-Xa Level POC ABG pH ABG pH POC ABG pCO2 POC ABG pO2 59 L ABG pO2 ABG HCO3 ABG O2 Saturation ABG Base Excess ABG Hemoglobin Oxyhemoglobin Sodium Potassium Chloride Carbon Dioxide BUN Creatinine Glucose POC Glucose 151 H Lactic Acid Calcium 4.2 L* Ionized Calcium Phosphorus Magnesium Iron TIBC Ferritin Total Bilirubin Direct Bilirubin AST ALT Alkaline Phosphatase Total Creatine Kinase 808146 H CK-MB (CK-2) Troponin T C-Reactive Protein Serum Total Protein Total Protein Albumin Pvqyj-2-Pyumgsypf Hyqtx-7-Jmsuejpco PEP Interpretation Triglycerides LDL Cholesterol Direct HDL Cholesterol Free T4 PTH Intact Urine WBC (Auto) Urine Creatinine Salicylates Acetaminophen Crossmatch 03/18/19 03/18/19 03/19/19 18:20 23:39 01:42 WBC RBC Hgb Hct MCV MCH MCHC RDW Plt Count Lymph % (Auto) [place] % (Auto) Eos % (Auto) Lymph # [place] # Eos # Seg Neutrophils % Seg Neuts % (Manual) Lymphocytes % (Manual) Monocytes % (Manual) Eosinophils % (Manual) Nucleated RBC % Seg Neutrophils # Seg Neutrophils # Man Lymphocytes # (Manual) Monocytes # (Manual) Eosinophils # (Manual) PT INR D-Dimer Heparin Anti-Xa Level POC ABG pH 7.345 L ABG pH 7.285 L POC ABG pCO2 POC ABG pO2 59 L ABG pO2 44.0 L ABG HCO3 ABG O2 Saturation 70.9 L ABG Base Excess -5.7 L ABG Hemoglobin 11.9 L Oxyhemoglobin 69.6 L Sodium Potassium Chloride Carbon Dioxide BUN Creatinine Glucose POC Glucose 152 H Lactic Acid Calcium Ionized Calcium Phosphorus Magnesium Iron TIBC Ferritin Total Bilirubin Direct Bilirubin AST ALT Alkaline Phosphatase Total Creatine Kinase CK-MB (CK-2) Troponin T C-Reactive Protein Serum Total Protein Total Protein Albumin Ievsx-3-Llzzwlhwa Krjse-1-Wvqhhhsme PEP Interpretation Triglycerides LDL Cholesterol Direct HDL Cholesterol Free T4 PTH Intact Urine WBC (Auto) Urine Creatinine Salicylates Acetaminophen Crossmatch 03/19/19 03/19/19 03/19/19 04:00 04:00 05:35 WBC 36.5 H RBC Hgb Hct MCV MCH MCHC RDW 15.8 H Plt Count 35 L Lymph % (Auto) [place] % (Auto) Eos % (Auto) Lymph # [place] # Eos # Seg Neutrophils % Seg Neuts % (Manual) Lymphocytes % (Manual) Monocytes % (Manual) Eosinophils % (Manual) Nucleated RBC % Seg Neutrophils # Seg Neutrophils # Man Lymphocytes # (Manual) Monocytes # (Manual) Eosinophils # (Manual) PT INR D-Dimer Heparin Anti-Xa Level POC ABG pH ABG pH 7.265 L POC ABG pCO2 POC ABG pO2 ABG pO2 35.4 L* ABG HCO3 ABG O2 Saturation 54.4 L ABG Base Excess -6.7 L ABG Hemoglobin 12.9 L Oxyhemoglobin 53.4 L Sodium 132 L Potassium 5.7 H Chloride 89.8 L Carbon Dioxide 19 L BUN 62 H Creatinine 6.4 H Glucose 151 H POC Glucose Lactic Acid Calcium 5.2 L* D Ionized Calcium Phosphorus Magnesium Iron TIBC Ferritin Total Bilirubin 7.80 H Direct Bilirubin AST 682 H ALT 130 H Alkaline Phosphatase 167 H Total Creatine Kinase CK-MB (CK-2) Troponin T C-Reactive Protein Serum Total Protein Total Protein 4.8 L Albumin 2.3 L Pdhim-7-Jxombdqjn Tkagh-9-Tihvsfpxs PEP Interpretation Triglycerides LDL Cholesterol Direct HDL Cholesterol Free T4 PTH Intact Urine WBC (Auto) Urine Creatinine Salicylates Acetaminophen Crossmatch 03/19/19 03/19/19 03/19/19 05:49 09:16 09:50 WBC RBC Hgb Hct MCV MCH MCHC RDW Plt Count Lymph % (Auto) [place] % (Auto) Eos % (Auto) Lymph # [place] # Eos # Seg Neutrophils % Seg Neuts % (Manual) Lymphocytes % (Manual) Monocytes % (Manual) Eosinophils % (Manual) Nucleated RBC % Seg Neutrophils # Seg Neutrophils # Man Lymphocytes # (Manual) Monocytes # (Manual) Eosinophils # (Manual) PT INR D-Dimer Heparin Anti-Xa Level POC ABG pH 7.222 L ABG pH POC ABG pCO2 56.6 H POC ABG pO2 ABG pO2 ABG HCO3 ABG O2 Saturation ABG Base Excess ABG Hemoglobin Oxyhemoglobin Sodium Potassium Chloride Carbon Dioxide BUN Creatinine Glucose POC Glucose 154 H Lactic Acid 2.70 H* Calcium Ionized Calcium Phosphorus Magnesium Iron TIBC Ferritin Total Bilirubin Direct Bilirubin AST ALT Alkaline Phosphatase Total Creatine Kinase CK-MB (CK-2) Troponin T C-Reactive Protein Serum Total Protein Total Protein Albumin Iejez-5-Ouwyrsutt Gjcol-0-Najwmcbel PEP Interpretation Triglycerides LDL Cholesterol Direct HDL Cholesterol Free T4 PTH Intact Urine WBC (Auto) Urine Creatinine Salicylates Acetaminophen Crossmatch 03/19/19 03/19/19 03/19/19 09:50 11:28 17:58 WBC RBC Hgb Hct MCV MCH MCHC RDW Plt Count Lymph % (Auto) [place] % (Auto) Eos % (Auto) Lymph # [place] # Eos # Seg Neutrophils % Seg Neuts % (Manual) Lymphocytes % (Manual) Monocytes % (Manual) Eosinophils % (Manual) Nucleated RBC % Seg Neutrophils # Seg Neutrophils # Man Lymphocytes # (Manual) Monocytes # (Manual) Eosinophils # (Manual) PT INR D-Dimer Heparin Anti-Xa Level POC ABG pH 7.250 L ABG pH POC ABG pCO2 52.6 H POC ABG pO2 ABG pO2 ABG HCO3 ABG O2 Saturation ABG Base Excess ABG Hemoglobin Oxyhemoglobin Sodium Potassium Chloride Carbon Dioxide BUN Creatinine Glucose POC Glucose 160 H Lactic Acid Calcium Ionized Calcium Phosphorus Magnesium Iron TIBC Ferritin Total Bilirubin Direct Bilirubin AST ALT Alkaline Phosphatase Total Creatine Kinase 60417 H CK-MB (CK-2) Troponin T C-Reactive Protein Serum Total Protein Total Protein Albumin Bmqdm-2-Gepmydegh Yuugy-5-Ipydktqpk PEP Interpretation Triglycerides LDL Cholesterol Direct HDL Cholesterol Free T4 PTH Intact Urine WBC (Auto) Urine Creatinine Salicylates Acetaminophen Crossmatch 03/19/19 03/19/19 03/20/19 19:48 21:03 02:16 WBC RBC Hgb Hct MCV MCH MCHC RDW Plt Count Lymph % (Auto) [place] % (Auto) Eos % (Auto) Lymph # [place] # Eos # Seg Neutrophils % Seg Neuts % (Manual) Lymphocytes % (Manual) Monocytes % (Manual) Eosinophils % (Manual) Nucleated RBC % Seg Neutrophils # Seg Neutrophils # Man Lymphocytes # (Manual) Monocytes # (Manual) Eosinophils # (Manual) PT INR D-Dimer Heparin Anti-Xa Level POC ABG pH 7.279 L ABG pH POC ABG pCO2 50.3 H POC ABG pO2 129 H ABG pO2 ABG HCO3 ABG O2 Saturation ABG Base Excess ABG Hemoglobin Oxyhemoglobin Sodium Potassium Chloride Carbon Dioxide BUN Creatinine Glucose POC Glucose 119 H 119 H Lactic Acid Calcium Ionized Calcium Phosphorus Magnesium Iron TIBC Ferritin Total Bilirubin Direct Bilirubin AST ALT Alkaline Phosphatase Total Creatine Kinase CK-MB (CK-2) Troponin T C-Reactive Protein Serum Total Protein Total Protein Albumin Zurdq-9-Yrwbbsxly Igoec-2-Aufyjtums PEP Interpretation Triglycerides LDL Cholesterol Direct HDL Cholesterol Free T4 PTH Intact Urine WBC (Auto) Urine Creatinine Salicylates Acetaminophen Crossmatch 03/20/19 03/20/19 03/20/19 04:23 05:05 09:30 WBC 36.3 H RBC Hgb Hct MCV MCH MCHC RDW 15.5 H Plt Count 29 L Lymph % (Auto) [place] % (Auto) Eos % (Auto) Lymph # [place] # Eos # Seg Neutrophils % Seg Neuts % (Manual) Lymphocytes % (Manual) Monocytes % (Manual) Eosinophils % (Manual) Nucleated RBC % Seg Neutrophils # Seg Neutrophils # Man Lymphocytes # (Manual) Monocytes # (Manual) Eosinophils # (Manual) PT INR D-Dimer Heparin Anti-Xa Level POC ABG pH ABG pH POC ABG pCO2 POC ABG pO2 280 H ABG pO2 ABG HCO3 ABG O2 Saturation ABG Base Excess ABG Hemoglobin Oxyhemoglobin Sodium Potassium Chloride Carbon Dioxide BUN Creatinine Glucose POC Glucose 115 H Lactic Acid Calcium Ionized Calcium Phosphorus Magnesium Iron TIBC Ferritin Total Bilirubin Direct Bilirubin AST ALT Alkaline Phosphatase Total Creatine Kinase CK-MB (CK-2) Troponin T C-Reactive Protein Serum Total Protein Total Protein Albumin Oiani-7-Uqfoaveki Vbpgq-4-Vwssdvmlj PEP Interpretation Triglycerides LDL Cholesterol Direct HDL Cholesterol Free T4 PTH Intact Urine WBC (Auto) Urine Creatinine Salicylates Acetaminophen Crossmatch 03/20/19 03/20/19 03/20/19 09:30 09:30 11:34 WBC RBC Hgb Hct MCV MCH MCHC RDW Plt Count Lymph % (Auto) [place] % (Auto) Eos % (Auto) Lymph # [place] # Eos # Seg Neutrophils % Seg Neuts % (Manual) Lymphocytes % (Manual) Monocytes % (Manual) Eosinophils % (Manual) Nucleated RBC % Seg Neutrophils # Seg Neutrophils # Man Lymphocytes # (Manual) Monocytes # (Manual) Eosinophils # (Manual) PT INR D-Dimer Heparin Anti-Xa Level POC ABG pH ABG pH POC ABG pCO2 POC ABG pO2 ABG pO2 ABG HCO3 ABG O2 Saturation ABG Base Excess ABG Hemoglobin Oxyhemoglobin Sodium 131 L Potassium Chloride 92.3 L Carbon Dioxide 20 L BUN 68 H Creatinine 6.1 H Glucose 164 H POC Glucose 141 H Lactic Acid Calcium 5.3 L* Ionized Calcium Phosphorus Magnesium Iron TIBC Ferritin Total Bilirubin 9.50 H Direct Bilirubin AST 381 H ALT 116 H Alkaline Phosphatase 255 H Total Creatine Kinase 16261 H CK-MB (CK-2) Troponin T C-Reactive Protein Serum Total Protein Total Protein 5.1 L Albumin 2.3 L Nheiw-6-Eymapluhf Waywr-7-Cejcwgpfg PEP Interpretation Triglycerides LDL Cholesterol Direct HDL Cholesterol Free T4 PTH Intact Urine WBC (Auto) Urine Creatinine Salicylates Acetaminophen Crossmatch 03/20/19 03/20/19 03/20/19 14:41 14:45 18:50 WBC RBC Hgb Hct MCV MCH MCHC RDW Plt Count Lymph % (Auto) [place] % (Auto) Eos % (Auto) Lymph # [place] # Eos # Seg Neutrophils % Seg Neuts % (Manual) Lymphocytes % (Manual) Monocytes % (Manual) Eosinophils % (Manual) Nucleated RBC % Seg Neutrophils # Seg Neutrophils # Man Lymphocytes # (Manual) Monocytes # (Manual) Eosinophils # (Manual) PT INR D-Dimer Heparin Anti-Xa Level POC ABG pH ABG pH POC ABG pCO2 POC ABG pO2 ABG pO2 ABG HCO3 ABG O2 Saturation ABG Base Excess ABG Hemoglobin Oxyhemoglobin Sodium Potassium Chloride Carbon Dioxide BUN Creatinine Glucose POC Glucose 117 H Lactic Acid 2.90 H* Calcium Ionized Calcium Phosphorus Magnesium Iron TIBC Ferritin Total Bilirubin Direct Bilirubin AST ALT Alkaline Phosphatase Total Creatine Kinase CK-MB (CK-2) Troponin T C-Reactive Protein 13.30 H Serum Total Protein Total Protein Albumin Tdtng-1-Exkxdbbva Nlauo-7-Tqauzuzes PEP Interpretation Triglycerides LDL Cholesterol Direct HDL Cholesterol Free T4 PTH Intact Urine WBC (Auto) Urine Creatinine Salicylates Acetaminophen Crossmatch 03/20/19 03/21/19 03/21/19 21:55 04:26 04:26 WBC 37.8 H RBC Hgb Hct MCV MCH MCHC RDW 15.4 H Plt Count 36 L Lymph % (Auto) [place] % (Auto) Eos % (Auto) Lymph # [place] # Eos # Seg Neutrophils % Seg Neuts % (Manual) 93.0 H Lymphocytes % (Manual) 3.0 L Monocytes % (Manual) Eosinophils % (Manual) Nucleated RBC % 1.0 H Seg Neutrophils # 34.6 H Seg Neutrophils # Man 35.2 H Lymphocytes # (Manual) 1.1 L Monocytes # (Manual) Eosinophils # (Manual) PT INR D-Dimer Heparin Anti-Xa Level POC ABG pH ABG pH POC ABG pCO2 POC ABG pO2 ABG pO2 ABG HCO3 ABG O2 Saturation ABG Base Excess ABG Hemoglobin Oxyhemoglobin Sodium 131 L Potassium Chloride 90.7 L Carbon Dioxide 21 L BUN 69 H Creatinine 5.7 H Glucose 170 H POC Glucose 128 H Lactic Acid Calcium 6.1 L D Ionized Calcium Phosphorus Magnesium Iron TIBC Ferritin Total Bilirubin 9.50 H Direct Bilirubin AST 308 H ALT 124 H Alkaline Phosphatase 327 H Total Creatine Kinase 28849 H CK-MB (CK-2) Troponin T C-Reactive Protein Serum Total Protein Total Protein 5.7 L Albumin 2.6 L Umnyd-8-Itgotiimn Plgut-4-Tyavmebmt PEP Interpretation Triglycerides LDL Cholesterol Direct HDL Cholesterol Free T4 PTH Intact Urine WBC (Auto) Urine Creatinine Salicylates Acetaminophen Crossmatch 03/21/19 03/21/19 03/21/19 05:17 05:39 08:29 WBC RBC Hgb Hct MCV MCH MCHC RDW Plt Count Lymph % (Auto) [place] % (Auto) Eos % (Auto) Lymph # [place] # Eos # Seg Neutrophils % Seg Neuts % (Manual) Lymphocytes % (Manual) Monocytes % (Manual) Eosinophils % (Manual) Nucleated RBC % Seg Neutrophils # Seg Neutrophils # Man Lymphocytes # (Manual) Monocytes # (Manual) Eosinophils # (Manual) PT INR D-Dimer Heparin Anti-Xa Level POC ABG pH ABG pH POC ABG pCO2 POC ABG pO2 209 H ABG pO2 ABG HCO3 ABG O2 Saturation ABG Base Excess ABG Hemoglobin Oxyhemoglobin Sodium Potassium Chloride Carbon Dioxide BUN Creatinine Glucose POC Glucose 145 H Lactic Acid Calcium Ionized Calcium Phosphorus Magnesium Iron TIBC Ferritin Total Bilirubin Direct Bilirubin AST ALT Alkaline Phosphatase Total Creatine Kinase 58274 H CK-MB (CK-2) Troponin T C-Reactive Protein Serum Total Protein Total Protein Albumin Flwdp-3-Nuwjmqelz Ksrmf-1-Ztbavtpuw PEP Interpretation Triglycerides LDL Cholesterol Direct HDL Cholesterol Free T4 PTH Intact Urine WBC (Auto) Urine Creatinine Salicylates Acetaminophen Crossmatch 03/21/19 03/21/19 03/21/19 08:29 11:43 12:00 WBC RBC Hgb Hct MCV MCH MCHC RDW Plt Count Lymph % (Auto) [place] % (Auto) Eos % (Auto) Lymph # [place] # Eos # Seg Neutrophils % Seg Neuts % (Manual) Lymphocytes % (Manual) Monocytes % (Manual) Eosinophils % (Manual) Nucleated RBC % Seg Neutrophils # Seg Neutrophils # Man Lymphocytes # (Manual) Monocytes # (Manual) Eosinophils # (Manual) PT INR D-Dimer Heparin Anti-Xa Level POC ABG pH ABG pH POC ABG pCO2 POC ABG pO2 ABG pO2 ABG HCO3 ABG O2 Saturation ABG Base Excess ABG Hemoglobin Oxyhemoglobin Sodium Potassium Chloride Carbon Dioxide BUN Creatinine Glucose POC Glucose 123 H Lactic Acid 2.60 H* 2.20 H* Calcium Ionized Calcium Phosphorus Magnesium Iron TIBC Ferritin Total Bilirubin Direct Bilirubin AST ALT Alkaline Phosphatase Total Creatine Kinase CK-MB (CK-2) Troponin T C-Reactive Protein Serum Total Protein Total Protein Albumin Qpmlh-1-Ioaikbuoa Euewh-9-Xuyfyqwwm PEP Interpretation Triglycerides LDL Cholesterol Direct HDL Cholesterol Free T4 PTH Intact Urine WBC (Auto) Urine Creatinine Salicylates Acetaminophen Crossmatch 03/21/19 03/21/19 03/21/19 14:11 18:28 19:32 WBC RBC Hgb Hct MCV MCH MCHC RDW Plt Count Lymph % (Auto) [place] % (Auto) Eos % (Auto) Lymph # [place] # Eos # Seg Neutrophils % Seg Neuts % (Manual) Lymphocytes % (Manual) Monocytes % (Manual) Eosinophils % (Manual) Nucleated RBC % Seg Neutrophils # Seg Neutrophils # Man Lymphocytes # (Manual) Monocytes # (Manual) Eosinophils # (Manual) PT INR D-Dimer Heparin Anti-Xa Level POC ABG pH 7.293 L ABG pH POC ABG pCO2 POC ABG pO2 ABG pO2 ABG HCO3 ABG O2 Saturation ABG Base Excess ABG Hemoglobin Oxyhemoglobin Sodium Potassium Chloride Carbon Dioxide BUN Creatinine Glucose POC Glucose 153 H Lactic Acid 2.10 H* Calcium Ionized Calcium Phosphorus Magnesium Iron TIBC Ferritin Total Bilirubin Direct Bilirubin AST ALT Alkaline Phosphatase Total Creatine Kinase CK-MB (CK-2) Troponin T C-Reactive Protein Serum Total Protein Total Protein Albumin Gvgvw-8-Gtlrbpslk Szcdw-0-Efpgazzpk PEP Interpretation Triglycerides LDL Cholesterol Direct HDL Cholesterol Free T4 PTH Intact Urine WBC (Auto) Urine Creatinine Salicylates Acetaminophen Crossmatch 03/21/19 03/22/19 03/22/19 23:38 05:08 05:51 WBC RBC Hgb Hct MCV MCH MCHC RDW Plt Count Lymph % (Auto) [place] % (Auto) Eos % (Auto) Lymph # [place] # Eos # Seg Neutrophils % Seg Neuts % (Manual) Lymphocytes % (Manual) Monocytes % (Manual) Eosinophils % (Manual) Nucleated RBC % Seg Neutrophils # Seg Neutrophils # Man Lymphocytes # (Manual) Monocytes # (Manual) Eosinophils # (Manual) PT INR D-Dimer Heparin Anti-Xa Level POC ABG pH 7.283 L ABG pH POC ABG pCO2 POC ABG pO2 53 L ABG pO2 ABG HCO3 ABG O2 Saturation ABG Base Excess ABG Hemoglobin Oxyhemoglobin Sodium Potassium Chloride Carbon Dioxide BUN Creatinine Glucose POC Glucose 149 H 131 H Lactic Acid Calcium Ionized Calcium Phosphorus Magnesium Iron TIBC Ferritin Total Bilirubin Direct Bilirubin AST ALT Alkaline Phosphatase Total Creatine Kinase CK-MB (CK-2) Troponin T C-Reactive Protein Serum Total Protein Total Protein Albumin Rhvop-7-Gcmudnayw Wqgyv-0-Oflwkauzo PEP Interpretation Triglycerides LDL Cholesterol Direct HDL Cholesterol Free T4 PTH Intact Urine WBC (Auto) Urine Creatinine Salicylates Acetaminophen Crossmatch 03/22/19 03/22/19 03/22/19 08:00 08:00 18:19 WBC 36.7 H RBC Hgb 11.0 L Hct 33.5 L MCV MCH MCHC RDW 15.5 H Plt Count 43 L Lymph % (Auto) [place] % (Auto) Eos % (Auto) Lymph # [place] # Eos # Seg Neutrophils % Seg Neuts % (Manual) 87.0 H Lymphocytes % (Manual) 7.0 L Monocytes % (Manual) Eosinophils % (Manual) Nucleated RBC % Seg Neutrophils # Seg Neutrophils # Man 31.9 H Lymphocytes # (Manual) Monocytes # (Manual) Eosinophils # (Manual) PT INR D-Dimer Heparin Anti-Xa Level POC ABG pH ABG pH POC ABG pCO2 46.4 H POC ABG pO2 108 H ABG pO2 ABG HCO3 ABG O2 Saturation ABG Base Excess ABG Hemoglobin Oxyhemoglobin Sodium 132 L Potassium 5.6 H Chloride 89.6 L Carbon Dioxide 20 L BUN 101 H Creatinine 7.4 H Glucose 124 H POC Glucose Lactic Acid Calcium 5.2 L* Ionized Calcium Phosphorus Magnesium Iron TIBC Ferritin Total Bilirubin 2.80 H Direct Bilirubin AST 119 H ALT 86 H Alkaline Phosphatase 245 H Total Creatine Kinase CK-MB (CK-2) Troponin T C-Reactive Protein Serum Total Protein Total Protein 5.6 L Albumin 2.5 L Hnhkz-4-Bfpggdutd Fvikg-8-Pnhrcfucv PEP Interpretation Triglycerides LDL Cholesterol Direct HDL Cholesterol Free T4 PTH Intact Urine WBC (Auto) Urine Creatinine Salicylates Acetaminophen Crossmatch 03/22/19 03/23/19 03/23/19 20:37 04:49 05:28 WBC 35.9 H RBC Hgb 10.8 L Hct 33.2 L MCV MCH MCHC RDW 15.5 H Plt Count 49 L Lymph % (Auto) [place] % (Auto) Eos % (Auto) Lymph # [place] # Eos # Seg Neutrophils % Seg Neuts % (Manual) 81.0 H Lymphocytes % (Manual) 3.5 L Monocytes % (Manual) Eosinophils % (Manual) Nucleated RBC % Seg Neutrophils # Seg Neutrophils # Man 29.1 H Lymphocytes # (Manual) Monocytes # (Manual) 1.4 H Eosinophils # (Manual) PT INR D-Dimer Heparin Anti-Xa Level POC ABG pH 7.296 L ABG pH POC ABG pCO2 46.2 H POC ABG pO2 ABG pO2 ABG HCO3 ABG O2 Saturation ABG Base Excess ABG Hemoglobin Oxyhemoglobin Sodium 129 L Potassium 5.2 H Chloride 91.1 L Carbon Dioxide BUN 91 H Creatinine 6.6 H Glucose 190 H POC Glucose Lactic Acid Calcium 5.3 L* Ionized Calcium Phosphorus Magnesium Iron TIBC Ferritin Total Bilirubin 1.80 H Direct Bilirubin AST 80 H ALT 62 H Alkaline Phosphatase 209 H Total Creatine Kinase 9758 H CK-MB (CK-2) Troponin T C-Reactive Protein Serum Total Protein Total Protein 5.2 L Albumin 2.2 L Rohro-2-Brodwmofp Lrwjn-9-Vdjykaslb PEP Interpretation Triglycerides LDL Cholesterol Direct HDL Cholesterol Free T4 PTH Intact Urine WBC (Auto) Urine Creatinine Salicylates Acetaminophen Crossmatch 03/23/19 03/23/19 03/23/19 05:28 05:31 11:33 WBC 29.7 H RBC 3.59 L Hgb 10.1 L Hct 31.1 L MCV MCH MCHC RDW 15.4 H Plt Count 47 L Lymph % (Auto) [place] % (Auto) Eos % (Auto) Lymph # [place] # Eos # Seg Neutrophils % Seg Neuts % (Manual) 89.0 H Lymphocytes % (Manual) 6.0 L Monocytes % (Manual) Eosinophils % (Manual) Nucleated RBC % 1.0 H Seg Neutrophils # Seg Neutrophils # Man 26.4 H Lymphocytes # (Manual) Monocytes # (Manual) Eosinophils # (Manual) PT INR D-Dimer Heparin Anti-Xa Level POC ABG pH ABG pH POC ABG pCO2 POC ABG pO2 ABG pO2 ABG HCO3 ABG O2 Saturation ABG Base Excess ABG Hemoglobin Oxyhemoglobin Sodium Potassium Chloride Carbon Dioxide BUN Creatinine Glucose POC Glucose 122 H 113 H Lactic Acid Calcium Ionized Calcium Phosphorus Magnesium Iron TIBC Ferritin Total Bilirubin Direct Bilirubin AST ALT Alkaline Phosphatase Total Creatine Kinase CK-MB (CK-2) Troponin T C-Reactive Protein Serum Total Protein Total Protein Albumin [place]-5-Fhdutnhyt Cpzyb-4-Yjzeaxeqj PEP Interpretation Triglycerides LDL Cholesterol Direct HDL Cholesterol Free T4 PTH Intact Urine WBC (Auto) Urine Creatinine Salicylates Acetaminophen Crossmatch 03/23/19 03/24/19 03/24/19 17:47 00:00 04:50 WBC 35.0 H RBC Hgb 10.4 L Hct 32.4 L MCV MCH MCHC RDW Plt Count 60 L Lymph % (Auto) [place] % (Auto) Eos % (Auto) Lymph # [place] # Eos # Seg Neutrophils % Seg Neuts % (Manual) 93.0 H Lymphocytes % (Manual) 5.0 L Monocytes % (Manual) Eosinophils % (Manual) Nucleated RBC % 7.0 H Seg Neutrophils # Seg Neutrophils # Man 32.6 H Lymphocytes # (Manual) Monocytes # (Manual) Eosinophils # (Manual) PT INR D-Dimer Heparin Anti-Xa Level POC ABG pH ABG pH POC ABG pCO2 POC ABG pO2 ABG pO2 ABG HCO3 ABG O2 Saturation ABG Base Excess ABG Hemoglobin Oxyhemoglobin Sodium Potassium Chloride Carbon Dioxide BUN Creatinine Glucose POC Glucose 111 H 108 H Lactic Acid Calcium Ionized Calcium Phosphorus Magnesium Iron TIBC Ferritin Total Bilirubin Direct Bilirubin AST ALT Alkaline Phosphatase Total Creatine Kinase CK-MB (CK-2) Troponin T C-Reactive Protein Serum Total Protein Total Protein Albumin [place]-4-Auhkbszxf Llyqd-1-Pqcolwkvl PEP Interpretation Triglycerides LDL Cholesterol Direct HDL Cholesterol Free T4 PTH Intact Urine WBC (Auto) Urine Creatinine Salicylates Acetaminophen Crossmatch 03/24/19 03/24/19 03/24/19 04:50 05:06 12:55 WBC RBC Hgb Hct MCV MCH MCHC RDW Plt Count Lymph % (Auto) [place] % (Auto) Eos % (Auto) Lymph # [place] # Eos # Seg Neutrophils % Seg Neuts % (Manual) Lymphocytes % (Manual) Monocytes % (Manual) Eosinophils % (Manual) Nucleated RBC % Seg Neutrophils # Seg Neutrophils # Man Lymphocytes # (Manual) Monocytes # (Manual) Eosinophils # (Manual) PT INR D-Dimer Heparin Anti-Xa Level POC ABG pH ABG pH POC ABG pCO2 POC ABG pO2 ABG pO2 ABG HCO3 ABG O2 Saturation ABG Base Excess ABG Hemoglobin Oxyhemoglobin Sodium 134 L Potassium 5.1 H Chloride 95.3 L Carbon Dioxide 21 L BUN 85 H Creatinine 6.4 H Glucose 109 H POC Glucose 112 H 110 H Lactic Acid Calcium 5.8 L* Ionized Calcium Phosphorus Magnesium Iron TIBC Ferritin Total Bilirubin Direct Bilirubin AST ALT Alkaline Phosphatase Total Creatine Kinase 5747 H CK-MB (CK-2) Troponin T C-Reactive Protein Serum Total Protein Total Protein Albumin [place]-8-Keewzfxvd Jrovx-5-Uelvdafwn PEP Interpretation Triglycerides LDL Cholesterol Direct HDL Cholesterol Free T4 PTH Intact Urine WBC (Auto) Urine Creatinine Salicylates Acetaminophen Crossmatch 03/24/19 03/25/19 03/25/19 23:29 05:00 05:00 WBC RBC Hgb Hct MCV MCH MCHC RDW Plt Count Lymph % (Auto) [place] % (Auto) Eos % (Auto) Lymph # [place] # Eos # Seg Neutrophils % Seg Neuts % (Manual) Lymphocytes % (Manual) Monocytes % (Manual) Eosinophils % (Manual) Nucleated RBC % Seg Neutrophils # Seg Neutrophils # Man Lymphocytes # (Manual) Monocytes # (Manual) Eosinophils # (Manual) PT INR D-Dimer Heparin Anti-Xa Level POC ABG pH ABG pH POC ABG pCO2 POC ABG pO2 ABG pO2 ABG HCO3 ABG O2 Saturation ABG Base Excess ABG Hemoglobin Oxyhemoglobin Sodium 133 L Potassium Chloride 94.0 L Carbon Dioxide 21 L BUN 81 H Creatinine 6.4 H Glucose POC Glucose 109 H Lactic Acid Calcium 5.5 L* Ionized Calcium Phosphorus Magnesium Iron TIBC Ferritin Total Bilirubin Direct Bilirubin AST 80 H ALT Alkaline Phosphatase 202 H Total Creatine Kinase 3589 H CK-MB (CK-2) Troponin T C-Reactive Protein Serum Total Protein Total Protein 5.3 L Albumin 2.4 L Ccqco-1-Eskuyhyon Neixs-6-Rgninxtsz PEP Interpretation Triglycerides LDL Cholesterol Direct HDL Cholesterol Free T4 PTH Intact 329.9 H Urine WBC (Auto) Urine Creatinine Salicylates Acetaminophen Crossmatch 03/25/19 03/25/19 03/26/19 05:00 06:30 04:30 WBC 23.3 H RBC 3.61 L Hgb 10.2 L Hct 31.2 L MCV MCH MCHC RDW Plt Count 57 L Lymph % (Auto) [place] % (Auto) Eos % (Auto) Lymph # [place] # Eos # Seg Neutrophils % Seg Neuts % (Manual) 92.0 H Lymphocytes % (Manual) 6.0 L Monocytes % (Manual) Eosinophils % (Manual) Nucleated RBC % Seg Neutrophils # Seg Neutrophils # Man 21.4 H Lymphocytes # (Manual) Monocytes # (Manual) Eosinophils # (Manual) PT INR D-Dimer Heparin Anti-Xa Level POC ABG pH ABG pH 7.326 L POC ABG pCO2 POC ABG pO2 ABG pO2 109.5 H 137.4 H ABG HCO3 18.8 L 18.6 L ABG O2 Saturation ABG Base Excess -4.4 L -6.8 L ABG Hemoglobin 10.1 L 9.9 L Oxyhemoglobin Sodium Potassium Chloride Carbon Dioxide BUN Creatinine Glucose POC Glucose Lactic Acid Calcium Ionized Calcium Phosphorus Magnesium Iron TIBC Ferritin Total Bilirubin Direct Bilirubin AST ALT Alkaline Phosphatase Total Creatine Kinase CK-MB (CK-2) Troponin T C-Reactive Protein Serum Total Protein Total Protein Albumin Ebpkm-4-Lkpmnzfkv Cygqt-6-Muicscros PEP Interpretation Triglycerides LDL Cholesterol Direct HDL Cholesterol Free T4 PTH Intact Urine WBC (Auto) Urine Creatinine Salicylates Acetaminophen Crossmatch 03/26/19 03/26/19 03/26/19 23:22 Unknown Unknown WBC 19.5 H RBC 3.44 L Hgb 9.8 L Hct 29.9 L MCV MCH MCHC RDW Plt Count 85 L Lymph % (Auto) [place] % (Auto) Eos % (Auto) Lymph # [place] # Eos # Seg Neutrophils % Seg Neuts % (Manual) 95.0 H Lymphocytes % (Manual) 3.0 L Monocytes % (Manual) Eosinophils % (Manual) Nucleated RBC % Seg Neutrophils # Seg Neutrophils # Man 18.5 H Lymphocytes # (Manual) 0.6 L Monocytes # (Manual) Eosinophils # (Manual) PT INR D-Dimer Heparin Anti-Xa Level POC ABG pH ABG pH POC ABG pCO2 POC ABG pO2 ABG pO2 ABG HCO3 ABG O2 Saturation ABG Base Excess ABG Hemoglobin Oxyhemoglobin Sodium 135 L Potassium 5.2 H D Chloride 92.2 L Carbon Dioxide 18 L BUN 109 H Creatinine 8.5 H Glucose 117 H POC Glucose 69 L Lactic Acid Calcium 4.5 L* D Ionized Calcium Phosphorus Magnesium Iron TIBC Ferritin Total Bilirubin Direct Bilirubin AST ALT Alkaline Phosphatase Total Creatine Kinase 4527 H CK-MB (CK-2) Troponin T C-Reactive Protein Serum Total Protein Total Protein Albumin Lqvpx-7-Uygprsgft Biihh-0-Fyywvtaio PEP Interpretation Triglycerides LDL Cholesterol Direct HDL Cholesterol Free T4 PTH Intact Urine WBC (Auto) Urine Creatinine Salicylates Acetaminophen Crossmatch 03/27/19 03/27/19 03/27/19 04:30 04:30 09:00 WBC 19.2 H RBC 3.42 L Hgb 9.9 L Hct 30.0 L MCV MCH MCHC RDW Plt Count 84 L Lymph % (Auto) [place] % (Auto) Eos % (Auto) Lymph # [place] # Eos # Seg Neutrophils % Seg Neuts % (Manual) Lymphocytes % (Manual) Monocytes % (Manual) Eosinophils % (Manual) Nucleated RBC % Seg Neutrophils # Seg Neutrophils # Man Lymphocytes # (Manual) Monocytes # (Manual) Eosinophils # (Manual) PT INR D-Dimer Heparin Anti-Xa Level POC ABG pH ABG pH POC ABG pCO2 POC ABG pO2 ABG pO2 ABG HCO3 ABG O2 Saturation ABG Base Excess ABG Hemoglobin Oxyhemoglobin Sodium 135 L Potassium Chloride 93.5 L Carbon Dioxide BUN 84 H Creatinine 7.1 H Glucose POC Glucose Lactic Acid Calcium 5.0 L* Ionized Calcium Phosphorus Magnesium Iron TIBC Ferritin Total Bilirubin Direct Bilirubin AST 78 H ALT Alkaline Phosphatase 135 H Total Creatine Kinase 4677 H CK-MB (CK-2) Troponin T C-Reactive Protein Serum Total Protein Total Protein 4.8 L Albumin 2.3 L Bbdon-4-Artecgmcy Gpdlv-5-Jgrdqgahb PEP Interpretation Triglycerides 409 H LDL Cholesterol Direct HDL Cholesterol Free T4 PTH Intact Urine WBC (Auto) Urine Creatinine Salicylates Acetaminophen Crossmatch 03/27/19 03/27/19 03/27/19 12:37 14:15 14:15 WBC RBC Hgb 9.7 L Hct 29.5 L MCV MCH MCHC RDW Plt Count 87 L Lymph % (Auto) [place] % (Auto) Eos % (Auto) Lymph # [place] # Eos # Seg Neutrophils % Seg Neuts % (Manual) Lymphocytes % (Manual) Monocytes % (Manual) Eosinophils % (Manual) Nucleated RBC % Seg Neutrophils # Seg Neutrophils # Man Lymphocytes # (Manual) Monocytes # (Manual) Eosinophils # (Manual) PT 15.9 H INR 1.30 H D-Dimer Heparin Anti-Xa Level POC ABG pH ABG pH POC ABG pCO2 POC ABG pO2 ABG pO2 ABG HCO3 ABG O2 Saturation ABG Base Excess ABG Hemoglobin Oxyhemoglobin Sodium Potassium Chloride Carbon Dioxide BUN Creatinine Glucose POC Glucose 129 H Lactic Acid Calcium Ionized Calcium Phosphorus Magnesium Iron TIBC Ferritin Total Bilirubin Direct Bilirubin AST ALT Alkaline Phosphatase Total Creatine Kinase CK-MB (CK-2) Troponin T C-Reactive Protein Serum Total Protein Total Protein Albumin Bpdwp-1-Rtrbohjwg Ukwop-9-Jxxcmdjxk PEP Interpretation Triglycerides LDL Cholesterol Direct HDL Cholesterol Free T4 PTH Intact Urine WBC (Auto) Urine Creatinine Salicylates Acetaminophen Crossmatch 03/27/19 03/27/19 03/27/19 18:00 19:22 19:23 WBC RBC Hgb Hct MCV MCH MCHC RDW Plt Count Lymph % (Auto) [place] % (Auto) Eos % (Auto) Lymph # [place] # Eos # Seg Neutrophils % Seg Neuts % (Manual) Lymphocytes % (Manual) Monocytes % (Manual) Eosinophils % (Manual) Nucleated RBC % Seg Neutrophils # Seg Neutrophils # Man Lymphocytes # (Manual) Monocytes # (Manual) Eosinophils # (Manual) PT INR D-Dimer Heparin Anti-Xa Level < 0.10 L POC ABG pH ABG pH POC ABG pCO2 POC ABG pO2 ABG pO2 ABG HCO3 ABG O2 Saturation ABG Base Excess ABG Hemoglobin Oxyhemoglobin Sodium Potassium Chloride Carbon Dioxide BUN Creatinine Glucose POC Glucose 121 H Lactic Acid Calcium Ionized Calcium Phosphorus Magnesium Iron TIBC Ferritin Total Bilirubin Direct Bilirubin AST ALT Alkaline Phosphatase Total Creatine Kinase 4517 H CK-MB (CK-2) Troponin T C-Reactive Protein Serum Total Protein Total Protein Albumin Itbjr-5-Qblgkwcss Ekgfq-8-Sqiyqbwtp PEP Interpretation Triglycerides LDL Cholesterol Direct HDL Cholesterol Free T4 PTH Intact Urine WBC (Auto) Urine Creatinine Salicylates Acetaminophen Crossmatch 03/27/19 03/27/19 03/28/19 22:10 23:52 03:49 WBC RBC Hgb Hct MCV MCH MCHC RDW Plt Count Lymph % (Auto) [place] % (Auto) Eos % (Auto) Lymph # [place] # Eos # Seg Neutrophils % Seg Neuts % (Manual) Lymphocytes % (Manual) Monocytes % (Manual) Eosinophils % (Manual) Nucleated RBC % Seg Neutrophils # Seg Neutrophils # Man Lymphocytes # (Manual) Monocytes # (Manual) Eosinophils # (Manual) PT INR D-Dimer Heparin Anti-Xa Level POC ABG pH 7.338 L ABG pH POC ABG pCO2 33.1 L POC ABG pO2 ABG pO2 ABG HCO3 ABG O2 Saturation ABG Base Excess ABG Hemoglobin Oxyhemoglobin Sodium Potassium Chloride Carbon Dioxide BUN Creatinine Glucose POC Glucose 113 H 117 H Lactic Acid Calcium Ionized Calcium Phosphorus Magnesium Iron TIBC Ferritin Total Bilirubin Direct Bilirubin AST ALT Alkaline Phosphatase Total Creatine Kinase CK-MB (CK-2) Troponin T C-Reactive Protein Serum Total Protein Total Protein Albumin Gaeum-1-Nofrhtevr Gzfki-6-Uuwitcbga PEP Interpretation Triglycerides LDL Cholesterol Direct HDL Cholesterol Free T4 PTH Intact Urine WBC (Auto) Urine Creatinine Salicylates Acetaminophen Crossmatch 03/28/19 03/28/19 03/28/19 05:13 05:13 06:18 WBC RBC Hgb Hct MCV MCH MCHC RDW Plt Count Lymph % (Auto) [place] % (Auto) Eos % (Auto) Lymph # [place] # Eos # Seg Neutrophils % Seg Neuts % (Manual) Lymphocytes % (Manual) Monocytes % (Manual) Eosinophils % (Manual) Nucleated RBC % Seg Neutrophils # Seg Neutrophils # Man Lymphocytes # (Manual) Monocytes # (Manual) Eosinophils # (Manual) PT INR D-Dimer Heparin Anti-Xa Level 0.23 L POC ABG pH ABG pH POC ABG pCO2 POC ABG pO2 ABG pO2 ABG HCO3 ABG O2 Saturation ABG Base Excess ABG Hemoglobin Oxyhemoglobin Sodium 135 L Potassium 5.5 H D Chloride 95.1 L Carbon Dioxide 16 L D BUN 129 H Creatinine 9.3 H Glucose 158 H POC Glucose 202 H Lactic Acid Calcium 4.0 L* D Ionized Calcium Phosphorus 12.40 H Magnesium Iron TIBC Ferritin Total Bilirubin Direct Bilirubin AST ALT Alkaline Phosphatase Total Creatine Kinase 4266 H CK-MB (CK-2) Troponin T C-Reactive Protein Serum Total Protein Total Protein Albumin [place]-7-Cnfrcujem Nurug-6-Nqgkwambl PEP Interpretation Triglycerides LDL Cholesterol Direct HDL Cholesterol Free T4 PTH Intact Urine WBC (Auto) Urine Creatinine Salicylates Acetaminophen Crossmatch 03/28/19 03/28/19 03/28/19 08:25 10:00 12:00 WBC RBC Hgb 4.9 L* D Hct 15.4 L* D MCV MCH MCHC RDW Plt Count Lymph % (Auto) [place] % (Auto) Eos % (Auto) Lymph # [place] # Eos # Seg Neutrophils % Seg Neuts % (Manual) Lymphocytes % (Manual) Monocytes % (Manual) Eosinophils % (Manual) Nucleated RBC % Seg Neutrophils # Seg Neutrophils # Man Lymphocytes # (Manual) Monocytes # (Manual) Eosinophils # (Manual) PT 17.9 H INR 1.52 H D-Dimer 4845.98 H Heparin Anti-Xa Level POC ABG pH ABG pH POC ABG pCO2 POC ABG pO2 ABG pO2 ABG HCO3 ABG O2 Saturation ABG Base Excess ABG Hemoglobin Oxyhemoglobin Sodium Potassium Chloride Carbon Dioxide BUN Creatinine Glucose POC Glucose Lactic Acid Calcium Ionized Calcium Phosphorus Magnesium Iron TIBC Ferritin Total Bilirubin Direct Bilirubin AST ALT Alkaline Phosphatase Total Creatine Kinase CK-MB (CK-2) Troponin T C-Reactive Protein Serum Total Protein Total Protein Albumin Jsxkr-7-Pdrjpmhak Tgyrz-1-Gbeyrjddq PEP Interpretation Triglycerides LDL Cholesterol Direct HDL Cholesterol Free T4 PTH Intact Urine WBC (Auto) Urine Creatinine Salicylates Acetaminophen Crossmatch See Detail 03/28/19 03/28/19 03/28/19 12:28 14:10 17:43 WBC RBC Hgb 5.9 L* Hct 18.3 L* MCV MCH MCHC RDW Plt Count Lymph % (Auto) [place] % (Auto) Eos % (Auto) Lymph # [place] # Eos # Seg Neutrophils % Seg Neuts % (Manual) Lymphocytes % (Manual) Monocytes % (Manual) Eosinophils % (Manual) Nucleated RBC % Seg Neutrophils # Seg Neutrophils # Man Lymphocytes # (Manual) Monocytes # (Manual) Eosinophils # (Manual) PT INR D-Dimer Heparin Anti-Xa Level POC ABG pH ABG pH POC ABG pCO2 POC ABG pO2 ABG pO2 ABG HCO3 ABG O2 Saturation ABG Base Excess ABG Hemoglobin Oxyhemoglobin Sodium Potassium Chloride Carbon Dioxide BUN Creatinine Glucose POC Glucose 153 H 159 H Lactic Acid Calcium Ionized Calcium Phosphorus Magnesium Iron TIBC Ferritin Total Bilirubin Direct Bilirubin AST ALT Alkaline Phosphatase Total Creatine Kinase CK-MB (CK-2) Troponin T C-Reactive Protein Serum Total Protein Total Protein Albumin Tjrhq-7-Zlvdqxgnl Glmlj-3-Lfxnxkwev PEP Interpretation Triglycerides LDL Cholesterol Direct HDL Cholesterol Free T4 PTH Intact Urine WBC (Auto) Urine Creatinine Salicylates Acetaminophen Crossmatch 03/28/19 03/28/19 03/28/19 18:10 Unknown 23:59 WBC 24.8 H RBC 3.42 L Hgb 10.2 L D Hct 31.1 L D MCV MCH MCHC RDW 15.4 H Plt Count 54 L Lymph % (Auto) [place] % (Auto) Eos % (Auto) Lymph # [place] # Eos # Seg Neutrophils % Seg Neuts % (Manual) 91.0 H Lymphocytes % (Manual) 8.0 L Monocytes % (Manual) Eosinophils % (Manual) Nucleated RBC % Seg Neutrophils # Seg Neutrophils # Man 22.6 H Lymphocytes # (Manual) Monocytes # (Manual) Eosinophils # (Manual) PT INR D-Dimer Heparin Anti-Xa Level POC ABG pH ABG pH POC ABG pCO2 POC ABG pO2 ABG pO2 ABG HCO3 ABG O2 Saturation ABG Base Excess ABG Hemoglobin Oxyhemoglobin Sodium Potassium 5.7 H Chloride Carbon Dioxide BUN Creatinine Glucose POC Glucose 107 H Lactic Acid Calcium Ionized Calcium Phosphorus Magnesium Iron TIBC Ferritin Total Bilirubin Direct Bilirubin AST ALT Alkaline Phosphatase Total Creatine Kinase CK-MB (CK-2) Troponin T C-Reactive Protein Serum Total Protein Total Protein Albumin [place]-3-Azjvyvrng Xaopg-9-Ylbifxhhz PEP Interpretation Triglycerides LDL Cholesterol Direct HDL Cholesterol Free T4 PTH Intact Urine WBC (Auto) Urine Creatinine Salicylates Acetaminophen Crossmatch 03/29/19 03/29/19 03/29/19 04:29 05:46 06:22 WBC RBC Hgb 8.6 L Hct 25.7 L MCV MCH MCHC RDW Plt Count 93 L Lymph % (Auto) [place] % (Auto) Eos % (Auto) Lymph # [place] # Eos # Seg Neutrophils % Seg Neuts % (Manual) Lymphocytes % (Manual) Monocytes % (Manual) Eosinophils % (Manual) Nucleated RBC % Seg Neutrophils # Seg Neutrophils # Man Lymphocytes # (Manual) Monocytes # (Manual) Eosinophils # (Manual) PT INR D-Dimer Heparin Anti-Xa Level POC ABG pH ABG pH POC ABG pCO2 32.2 L POC ABG pO2 ABG pO2 ABG HCO3 ABG O2 Saturation ABG Base Excess ABG Hemoglobin Oxyhemoglobin Sodium Potassium Chloride Carbon Dioxide BUN Creatinine Glucose POC Glucose 113 H Lactic Acid Calcium Ionized Calcium Phosphorus Magnesium Iron TIBC Ferritin Total Bilirubin Direct Bilirubin AST ALT Alkaline Phosphatase Total Creatine Kinase CK-MB (CK-2) Troponin T C-Reactive Protein Serum Total Protein Total Protein Albumin Xszay-3-Ptwaftynf Hzkul-6-Bcretrmqa PEP Interpretation Triglycerides LDL Cholesterol Direct HDL Cholesterol Free T4 PTH Intact Urine WBC (Auto) Urine Creatinine Salicylates Acetaminophen Crossmatch 03/29/19 03/29/19 03/29/19 06:22 06:22 06:22 WBC 23.2 H RBC 2.91 L Hgb 8.6 L Hct 25.8 L MCV MCH MCHC RDW Plt Count 91 L Lymph % (Auto) [place] % (Auto) Eos % (Auto) Lymph # [place] # Eos # Seg Neutrophils % Seg Neuts % (Manual) Lymphocytes % (Manual) Monocytes % (Manual) Eosinophils % (Manual) Nucleated RBC % Seg Neutrophils # Seg Neutrophils # Man Lymphocytes # (Manual) Monocytes # (Manual) Eosinophils # (Manual) PT INR D-Dimer Heparin Anti-Xa Level POC ABG pH ABG pH POC ABG pCO2 POC ABG pO2 ABG pO2 ABG HCO3 ABG O2 Saturation ABG Base Excess ABG Hemoglobin Oxyhemoglobin Sodium 133 L Potassium Chloride 93.8 L Carbon Dioxide 18 L BUN 109 H Creatinine 7.4 H Glucose 124 H POC Glucose Lactic Acid Calcium 4.6 L* Ionized Calcium Phosphorus Magnesium Iron TIBC Ferritin Total Bilirubin Direct Bilirubin AST ALT Alkaline Phosphatase Total Creatine Kinase 3401 H CK-MB (CK-2) Troponin T C-Reactive Protein Serum Total Protein Total Protein Albumin Svkwx-3-Vfsezpefs Jeepc-0-Lrdchopme PEP Interpretation Triglycerides 309 H LDL Cholesterol Direct HDL Cholesterol Free T4 PTH Intact Urine WBC (Auto) Urine Creatinine Salicylates Acetaminophen Crossmatch 03/29/19 03/29/19 03/29/19 11:48 11:48 18:24 WBC RBC Hgb 7.8 L Hct 23.2 L MCV MCH MCHC RDW Plt Count Lymph % (Auto) [place] % (Auto) Eos % (Auto) Lymph # [place] # Eos # Seg Neutrophils % Seg Neuts % (Manual) Lymphocytes % (Manual) Monocytes % (Manual) Eosinophils % (Manual) Nucleated RBC % Seg Neutrophils # Seg Neutrophils # Man Lymphocytes # (Manual) Monocytes # (Manual) Eosinophils # (Manual) PT 15.3 H INR 1.24 H D-Dimer Heparin Anti-Xa Level POC ABG pH ABG pH POC ABG pCO2 POC ABG pO2 ABG pO2 ABG HCO3 ABG O2 Saturation ABG Base Excess ABG Hemoglobin Oxyhemoglobin Sodium Potassium Chloride Carbon Dioxide BUN Creatinine Glucose POC Glucose 122 H Lactic Acid Calcium Ionized Calcium Phosphorus Magnesium Iron TIBC Ferritin Total Bilirubin Direct Bilirubin AST ALT Alkaline Phosphatase Total Creatine Kinase CK-MB (CK-2) Troponin T C-Reactive Protein Serum Total Protein Total Protein Albumin Yrvup-1-Goinixarr Qallr-2-Jyxouzonc PEP Interpretation Triglycerides LDL Cholesterol Direct HDL Cholesterol Free T4 PTH Intact Urine WBC (Auto) Urine Creatinine Salicylates Acetaminophen Crossmatch 03/30/19 03/30/19 03/30/19 00:40 04:31 05:04 WBC RBC Hgb 7.6 L Hct 23.0 L MCV MCH MCHC RDW Plt Count Lymph % (Auto) [place] % (Auto) Eos % (Auto) Lymph # [place] # Eos # Seg Neutrophils % Seg Neuts % (Manual) Lymphocytes % (Manual) Monocytes % (Manual) Eosinophils % (Manual) Nucleated RBC % Seg Neutrophils # Seg Neutrophils # Man Lymphocytes # (Manual) Monocytes # (Manual) Eosinophils # (Manual) PT INR D-Dimer Heparin Anti-Xa Level POC ABG pH 7.346 L ABG pH POC ABG pCO2 POC ABG pO2 62 L ABG pO2 ABG HCO3 ABG O2 Saturation ABG Base Excess ABG Hemoglobin Oxyhemoglobin Sodium Potassium Chloride Carbon Dioxide BUN 79 H Creatinine 6.4 H Glucose POC Glucose Lactic Acid Calcium 6.1 L D Ionized Calcium Phosphorus Magnesium Iron TIBC Ferritin Total Bilirubin Direct Bilirubin AST ALT Alkaline Phosphatase Total Creatine Kinase CK-MB (CK-2) Troponin T C-Reactive Protein Serum Total Protein Total Protein Albumin Iznem-1-Visoddjjm Mlnsq-6-Ryhowpoxv PEP Interpretation Triglycerides LDL Cholesterol Direct HDL Cholesterol Free T4 PTH Intact Urine WBC (Auto) Urine Creatinine Salicylates Acetaminophen Crossmatch 03/30/19 03/30/19 03/30/19 08:45 12:09 22:43 WBC 14.3 H RBC 2.33 L Hgb 7.0 L 7.4 L Hct 21.0 L 22.3 L MCV MCH MCHC RDW 15.6 H Plt Count 135 L Lymph % (Auto) [place] % (Auto) Eos % (Auto) Lymph # [place] # Eos # Seg Neutrophils % Seg Neuts % (Manual) Lymphocytes % (Manual) Monocytes % (Manual) Eosinophils % (Manual) Nucleated RBC % Seg Neutrophils # Seg Neutrophils # Man Lymphocytes # (Manual) Monocytes # (Manual) Eosinophils # (Manual) PT INR D-Dimer Heparin Anti-Xa Level POC ABG pH ABG pH POC ABG pCO2 POC ABG pO2 ABG pO2 ABG HCO3 ABG O2 Saturation ABG Base Excess ABG Hemoglobin Oxyhemoglobin Sodium Potassium Chloride Carbon Dioxide BUN Creatinine Glucose POC Glucose Lactic Acid Calcium Ionized Calcium 3.7 L Phosphorus Magnesium Iron TIBC Ferritin Total Bilirubin Direct Bilirubin AST ALT Alkaline Phosphatase Total Creatine Kinase CK-MB (CK-2) Troponin T C-Reactive Protein Serum Total Protein Total Protein Albumin Ybxlg-6-Ohfxjzojm Gyaqv-2-Eetugmjaj PEP Interpretation Triglycerides LDL Cholesterol Direct HDL Cholesterol Free T4 PTH Intact Urine WBC (Auto) Urine Creatinine Salicylates Acetaminophen Crossmatch 03/30/19 03/30/19 03/31/19 23:38 Unknown 04:44 WBC 11.5 H RBC 2.40 L Hgb 7.3 L Hct 21.9 L MCV MCH MCHC RDW 15.4 H Plt Count Lymph % (Auto) 10.6 L [place] % (Auto) Eos % (Auto) Lymph # [place] # Eos # Seg Neutrophils % 81.7 H Seg Neuts % (Manual) Lymphocytes % (Manual) Monocytes % (Manual) Eosinophils % (Manual) Nucleated RBC % Seg Neutrophils # 9.4 H Seg Neutrophils # Man Lymphocytes # (Manual) Monocytes # (Manual) Eosinophils # (Manual) PT INR D-Dimer Heparin Anti-Xa Level POC ABG pH ABG pH POC ABG pCO2 POC ABG pO2 ABG pO2 ABG HCO3 ABG O2 Saturation ABG Base Excess ABG Hemoglobin Oxyhemoglobin Sodium Potassium Chloride Carbon Dioxide BUN Creatinine Glucose POC Glucose 155 H Lactic Acid Calcium Ionized Calcium Phosphorus Magnesium Iron TIBC Ferritin Total Bilirubin Direct Bilirubin 0.4 H AST 63 H ALT Alkaline Phosphatase Total Creatine Kinase CK-MB (CK-2) Troponin T C-Reactive Protein Serum Total Protein Total Protein 4.9 L Albumin 2.2 L Fvbkx-8-Nuuewegid Osqde-4-Ngwyvmmlb PEP Interpretation Triglycerides LDL Cholesterol Direct HDL Cholesterol Free T4 PTH Intact Urine WBC (Auto) Urine Creatinine Salicylates Acetaminophen Crossmatch 03/31/19 03/31/19 03/31/19 04:44 05:44 08:20 WBC RBC Hgb Hct MCV MCH MCHC RDW Plt Count Lymph % (Auto) [place] % (Auto) Eos % (Auto) Lymph # [place] # Eos # Seg Neutrophils % Seg Neuts % (Manual) Lymphocytes % (Manual) Monocytes % (Manual) Eosinophils % (Manual) Nucleated RBC % Seg Neutrophils # Seg Neutrophils # Man Lymphocytes # (Manual) Monocytes # (Manual) Eosinophils # (Manual) PT INR D-Dimer Heparin Anti-Xa Level POC ABG pH ABG pH POC ABG pCO2 53.5 H POC ABG pO2 62 L ABG pO2 ABG HCO3 ABG O2 Saturation ABG Base Excess ABG Hemoglobin Oxyhemoglobin Sodium 135 L Potassium Chloride 96.7 L Carbon Dioxide 19 L BUN 94 H Creatinine 7.8 H Glucose POC Glucose Lactic Acid Calcium 5.3 L* Ionized Calcium Phosphorus 8.20 H Magnesium Iron TIBC Ferritin Total Bilirubin Direct Bilirubin 0.4 H AST 60 H ALT Alkaline Phosphatase Total Creatine Kinase CK-MB (CK-2) Troponin T C-Reactive Protein Serum Total Protein Total Protein 4.8 L Albumin 2.1 L Skugr-3-Mabnfhklz Ibaay-2-Jgaktljrl PEP Interpretation Triglycerides LDL Cholesterol Direct HDL Cholesterol Free T4 PTH Intact Urine WBC (Auto) Urine Creatinine Salicylates Acetaminophen Crossmatch 03/31/19 04/01/19 04/01/19 22:14 04:27 04:27 WBC RBC 2.60 L Hgb 8.0 L Hct 24.1 L MCV MCH MCHC RDW 15.7 H Plt Count Lymph % (Auto) 7.9 L [place] % (Auto) Eos % (Auto) Lymph # 0.7 L [place] # Eos # Seg Neutrophils % 83.6 H Seg Neuts % (Manual) Lymphocytes % (Manual) Monocytes % (Manual) Eosinophils % (Manual) Nucleated RBC % Seg Neutrophils # Seg Neutrophils # Man Lymphocytes # (Manual) Monocytes # (Manual) Eosinophils # (Manual) PT INR D-Dimer Heparin Anti-Xa Level POC ABG pH 7.286 L ABG pH POC ABG pCO2 54.7 H POC ABG pO2 179 H ABG pO2 ABG HCO3 ABG O2 Saturation ABG Base Excess ABG Hemoglobin Oxyhemoglobin Sodium Potassium Chloride Carbon Dioxide BUN 68 H Creatinine 6.6 H Glucose POC Glucose Lactic Acid Calcium 6.5 L D Ionized Calcium Phosphorus 7.30 H Magnesium Iron TIBC Ferritin Total Bilirubin Direct Bilirubin AST ALT Alkaline Phosphatase Total Creatine Kinase 1652 H CK-MB (CK-2) Troponin T C-Reactive Protein Serum Total Protein Total Protein Albumin Ifgef-8-Lbctbdctu Mmjsd-6-Pwlqfvdgh PEP Interpretation Triglycerides LDL Cholesterol Direct HDL Cholesterol Free T4 PTH Intact Urine WBC (Auto) Urine Creatinine Salicylates Acetaminophen Crossmatch 04/01/19 04/01/19 04/01/19 05:14 05:37 18:37 WBC RBC Hgb Hct MCV MCH MCHC RDW Plt Count Lymph % (Auto) [place] % (Auto) Eos % (Auto) Lymph # [place] # Eos # Seg Neutrophils % Seg Neuts % (Manual) Lymphocytes % (Manual) Monocytes % (Manual) Eosinophils % (Manual) Nucleated RBC % Seg Neutrophils # Seg Neutrophils # Man Lymphocytes # (Manual) Monocytes # (Manual) Eosinophils # (Manual) PT INR D-Dimer Heparin Anti-Xa Level POC ABG pH 7.283 L ABG pH POC ABG pCO2 53.4 H POC ABG pO2 241 H ABG pO2 ABG HCO3 ABG O2 Saturation ABG Base Excess ABG Hemoglobin Oxyhemoglobin Sodium Potassium Chloride Carbon Dioxide BUN Creatinine Glucose POC Glucose 111 H 119 H Lactic Acid Calcium Ionized Calcium Phosphorus Magnesium Iron TIBC Ferritin Total Bilirubin Direct Bilirubin AST ALT Alkaline Phosphatase Total Creatine Kinase CK-MB (CK-2) Troponin T C-Reactive Protein Serum Total Protein Total Protein Albumin Cjvmu-4-Zbrxspfge Bbpxc-7-Wmjgtxgeu PEP Interpretation Triglycerides LDL Cholesterol Direct HDL Cholesterol Free T4 PTH Intact Urine WBC (Auto) Urine Creatinine Salicylates Acetaminophen Crossmatch 04/01/19 04/02/19 04/02/19 21:28 04:40 05:03 WBC RBC 2.36 L Hgb 7.2 L Hct 21.9 L MCV MCH MCHC RDW 16.0 H Plt Count Lymph % (Auto) 10.8 L [place] % (Auto) Eos % (Auto) Lymph # 0.8 L [place] # Eos # Seg Neutrophils % 80.3 H Seg Neuts % (Manual) Lymphocytes % (Manual) Monocytes % (Manual) Eosinophils % (Manual) Nucleated RBC % Seg Neutrophils # Seg Neutrophils # Man Lymphocytes # (Manual) Monocytes # (Manual) Eosinophils # (Manual) PT INR D-Dimer Heparin Anti-Xa Level POC ABG pH 7.299 L 7.300 L ABG pH POC ABG pCO2 48.2 H 45.2 H POC ABG pO2 133 H 107 H ABG pO2 ABG HCO3 ABG O2 Saturation ABG Base Excess ABG Hemoglobin Oxyhemoglobin Sodium Potassium Chloride Carbon Dioxide BUN Creatinine Glucose POC Glucose Lactic Acid Calcium Ionized Calcium Phosphorus Magnesium Iron TIBC Ferritin Total Bilirubin Direct Bilirubin AST ALT Alkaline Phosphatase Total Creatine Kinase CK-MB (CK-2) Troponin T C-Reactive Protein Serum Total Protein Total Protein Albumin Faxwa-8-Bayxbaxlu Gpkml-4-Qbcferryj PEP Interpretation Triglycerides LDL Cholesterol Direct HDL Cholesterol Free T4 PTH Intact Urine WBC (Auto) Urine Creatinine Salicylates Acetaminophen Crossmatch 04/02/19 04/02/19 04/02/19 05:03 05:03 12:15 WBC RBC Hgb 7.4 L Hct 22.6 L MCV MCH MCHC RDW Plt Count Lymph % (Auto) [place] % (Auto) Eos % (Auto) Lymph # [place] # Eos # Seg Neutrophils % Seg Neuts % (Manual) Lymphocytes % (Manual) Monocytes % (Manual) Eosinophils % (Manual) Nucleated RBC % Seg Neutrophils # Seg Neutrophils # Man Lymphocytes # (Manual) Monocytes # (Manual) Eosinophils # (Manual) PT INR D-Dimer Heparin Anti-Xa Level POC ABG pH ABG pH POC ABG pCO2 POC ABG pO2 ABG pO2 ABG HCO3 ABG O2 Saturation ABG Base Excess ABG Hemoglobin Oxyhemoglobin Sodium 136 L Potassium Chloride 97.8 L Carbon Dioxide 18 L BUN 82 H Creatinine 8.2 H Glucose POC Glucose Lactic Acid Calcium 6.7 L Ionized Calcium Phosphorus 7.50 H Magnesium Iron 26 L TIBC 138 L Ferritin 607.0 H Total Bilirubin Direct Bilirubin AST ALT Alkaline Phosphatase Total Creatine Kinase CK-MB (CK-2) Troponin T C-Reactive Protein Serum Total Protein Total Protein Albumin Kfbvc-0-Bpnaqehrg Mvljm-1-Dczesruip PEP Interpretation Triglycerides LDL Cholesterol Direct HDL Cholesterol Free T4 PTH Intact Urine WBC (Auto) Urine Creatinine Salicylates Acetaminophen Crossmatch 04/02/19 04/02/19 04/03/19 16:34 17:14 04:18 WBC RBC Hgb Hct MCV MCH MCHC RDW Plt Count Lymph % (Auto) [place] % (Auto) Eos % (Auto) Lymph # [place] # Eos # Seg Neutrophils % Seg Neuts % (Manual) Lymphocytes % (Manual) Monocytes % (Manual) Eosinophils % (Manual) Nucleated RBC % Seg Neutrophils # Seg Neutrophils # Man Lymphocytes # (Manual) Monocytes # (Manual) Eosinophils # (Manual) PT INR D-Dimer Heparin Anti-Xa Level POC ABG pH ABG pH POC ABG pCO2 POC ABG pO2 146 H ABG pO2 ABG HCO3 ABG O2 Saturation ABG Base Excess ABG Hemoglobin Oxyhemoglobin Sodium Potassium Chloride Carbon Dioxide BUN Creatinine Glucose POC Glucose 108 H Lactic Acid Calcium Ionized Calcium Phosphorus Magnesium Iron TIBC Ferritin Total Bilirubin Direct Bilirubin AST ALT Alkaline Phosphatase Total Creatine Kinase CK-MB (CK-2) Troponin T C-Reactive Protein Serum Total Protein Total Protein Albumin Qodov-7-Fadzbache Gdmhd-4-Clcbiqjfk PEP Interpretation Triglycerides LDL Cholesterol Direct HDL Cholesterol Free T4 PTH Intact Urine WBC (Auto) Urine Creatinine Salicylates Acetaminophen Crossmatch See Detail 04/03/19 04/03/19 04/03/19 04:25 08:30 18:24 WBC RBC 2.40 L Hgb 7.3 L Hct 21.9 L MCV MCH MCHC RDW Plt Count Lymph % (Auto) [place] % (Auto) 7.7 H Eos % (Auto) Lymph # 0.9 L [place] # Eos # Seg Neutrophils % 74.6 H Seg Neuts % (Manual) Lymphocytes % (Manual) Monocytes % (Manual) Eosinophils % (Manual) Nucleated RBC % Seg Neutrophils # Seg Neutrophils # Man Lymphocytes # (Manual) Monocytes # (Manual) Eosinophils # (Manual) PT INR D-Dimer Heparin Anti-Xa Level POC ABG pH ABG pH POC ABG pCO2 POC ABG pO2 ABG pO2 ABG HCO3 ABG O2 Saturation ABG Base Excess ABG Hemoglobin Oxyhemoglobin Sodium 136 L Potassium Chloride 97.0 L Carbon Dioxide BUN 58 H Creatinine 7.3 H Glucose POC Glucose 106 H Lactic Acid Calcium 7.5 L Ionized Calcium Phosphorus 5.80 H D Magnesium Iron TIBC Ferritin Total Bilirubin Direct Bilirubin AST ALT Alkaline Phosphatase Total Creatine Kinase CK-MB (CK-2) Troponin T C-Reactive Protein Serum Total Protein Total Protein Albumin Mwwvf-6-Monljjgcf Kwjyb-2-Twbtbeyxu PEP Interpretation Triglycerides LDL Cholesterol Direct HDL Cholesterol Free T4 PTH Intact Urine WBC (Auto) Urine Creatinine Salicylates Acetaminophen Crossmatch 04/03/19 04/04/19 04/04/19 23:43 04:47 04:47 WBC RBC 2.72 L Hgb 8.3 L Hct 24.7 L MCV MCH MCHC RDW 15.6 H Plt Count Lymph % (Auto) [place] % (Auto) 10.1 H Eos % (Auto) Lymph # 0.8 L [place] # Eos # Seg Neutrophils % 71.4 H Seg Neuts % (Manual) Lymphocytes % (Manual) Monocytes % (Manual) Eosinophils % (Manual) Nucleated RBC % Seg Neutrophils # Seg Neutrophils # Man Lymphocytes # (Manual) Monocytes # (Manual) Eosinophils # (Manual) PT INR D-Dimer Heparin Anti-Xa Level POC ABG pH ABG pH POC ABG pCO2 POC ABG pO2 ABG pO2 123.8 H ABG HCO3 ABG O2 Saturation ABG Base Excess -3.0 L ABG Hemoglobin 7.9 L Oxyhemoglobin Sodium 134 L Potassium Chloride 97.9 L Carbon Dioxide BUN 64 H Creatinine 8.1 H Glucose POC Glucose Lactic Acid Calcium 7.2 L Ionized Calcium Phosphorus Magnesium Iron TIBC Ferritin Total Bilirubin Direct Bilirubin AST ALT Alkaline Phosphatase Total Creatine Kinase CK-MB (CK-2) Troponin T C-Reactive Protein Serum Total Protein Total Protein Albumin Kmett-5-Wxyuhzsmw Gvojb-4-Aphafeorr PEP Interpretation Triglycerides LDL Cholesterol Direct HDL Cholesterol Free T4 PTH Intact Urine WBC (Auto) Urine Creatinine Salicylates Acetaminophen Crossmatch 04/04/19 04/04/19 04/04/19 06:07 13:40 18:18 WBC RBC Hgb Hct MCV MCH MCHC RDW Plt Count Lymph % (Auto) [place] % (Auto) Eos % (Auto) Lymph # [place] # Eos # Seg Neutrophils % Seg Neuts % (Manual) Lymphocytes % (Manual) Monocytes % (Manual) Eosinophils % (Manual) Nucleated RBC % Seg Neutrophils # Seg Neutrophils # Man Lymphocytes # (Manual) Monocytes # (Manual) Eosinophils # (Manual) PT INR D-Dimer Heparin Anti-Xa Level POC ABG pH ABG pH POC ABG pCO2 POC ABG pO2 ABG pO2 95.9 H ABG HCO3 ABG O2 Saturation ABG Base Excess -3.0 L ABG Hemoglobin 8.5 L Oxyhemoglobin Sodium Potassium Chloride Carbon Dioxide BUN Creatinine Glucose POC Glucose 107 H 107 H Lactic Acid Calcium Ionized Calcium Phosphorus Magnesium Iron TIBC Ferritin Total Bilirubin Direct Bilirubin AST ALT Alkaline Phosphatase Total Creatine Kinase CK-MB (CK-2) Troponin T C-Reactive Protein Serum Total Protein Total Protein Albumin Nfnfe-7-Yxtochlia Pqfse-5-Okqlzgxvl PEP Interpretation Triglycerides LDL Cholesterol Direct HDL Cholesterol Free T4 PTH Intact Urine WBC (Auto) Urine Creatinine Salicylates Acetaminophen Crossmatch 04/04/19 04/05/19 04/05/19 21:22 04:09 04:09 WBC RBC 2.76 L Hgb 8.4 L Hct 25.4 L MCV MCH MCHC RDW 15.8 H Plt Count 133 L Lymph % (Auto) [place] % (Auto) 9.6 H Eos % (Auto) Lymph # 0.7 L [place] # Eos # Seg Neutrophils % 72.6 H Seg Neuts % (Manual) Lymphocytes % (Manual) Monocytes % (Manual) Eosinophils % (Manual) Nucleated RBC % Seg Neutrophils # Seg Neutrophils # Man Lymphocytes # (Manual) Monocytes # (Manual) Eosinophils # (Manual) PT INR D-Dimer Heparin Anti-Xa Level POC ABG pH ABG pH POC ABG pCO2 47.2 H POC ABG pO2 137 H ABG pO2 ABG HCO3 ABG O2 Saturation ABG Base Excess ABG Hemoglobin Oxyhemoglobin Sodium 136 L Potassium Chloride Carbon Dioxide BUN 46 H Creatinine 6.7 H Glucose POC Glucose Lactic Acid Calcium 7.7 L Ionized Calcium Phosphorus Magnesium Iron TIBC Ferritin Total Bilirubin Direct Bilirubin AST ALT Alkaline Phosphatase Total Creatine Kinase CK-MB (CK-2) Troponin T C-Reactive Protein Serum Total Protein Total Protein Albumin Wnvhd-4-Maqspfjai Ipmcn-0-Auedgihju PEP Interpretation Triglycerides LDL Cholesterol Direct HDL Cholesterol Free T4 PTH Intact Urine WBC (Auto) Urine Creatinine Salicylates Acetaminophen Crossmatch 04/05/19 04/05/19 04/05/19 05:28 06:14 16:50 WBC RBC Hgb Hct MCV MCH MCHC RDW Plt Count Lymph % (Auto) [place] % (Auto) Eos % (Auto) Lymph # [place] # Eos # Seg Neutrophils % Seg Neuts % (Manual) Lymphocytes % (Manual) Monocytes % (Manual) Eosinophils % (Manual) Nucleated RBC % Seg Neutrophils # Seg Neutrophils # Man Lymphocytes # (Manual) Monocytes # (Manual) Eosinophils # (Manual) PT INR D-Dimer Heparin Anti-Xa Level POC ABG pH ABG pH POC ABG pCO2 POC ABG pO2 67 L ABG pO2 ABG HCO3 ABG O2 Saturation ABG Base Excess ABG Hemoglobin Oxyhemoglobin Sodium Potassium Chloride Carbon Dioxide BUN Creatinine Glucose POC Glucose 108 H Lactic Acid Calcium Ionized Calcium Phosphorus Magnesium Iron TIBC Ferritin Total Bilirubin Direct Bilirubin AST ALT Alkaline Phosphatase Total Creatine Kinase CK-MB (CK-2) Troponin T C-Reactive Protein Serum Total Protein Total Protein Albumin Kmkyv-7-Vardsncri Gruuy-6-Ugpcxrceo PEP Interpretation Triglycerides LDL Cholesterol Direct HDL Cholesterol Free T4 PTH Intact Urine WBC (Auto) 40.0 H Urine Creatinine Salicylates Acetaminophen Crossmatch 04/05/19 04/06/19 04/06/19 17:22 00:13 04:44 WBC RBC 2.48 L Hgb 7.5 L Hct 22.9 L MCV MCH MCHC RDW 16.0 H Plt Count 107 L Lymph % (Auto) [place] % (Auto) 10.7 H Eos % (Auto) Lymph # 1.0 L [place] # Eos # Seg Neutrophils % Seg Neuts % (Manual) Lymphocytes % (Manual) Monocytes % (Manual) Eosinophils % (Manual) Nucleated RBC % Seg Neutrophils # Seg Neutrophils # Man Lymphocytes # (Manual) Monocytes # (Manual) Eosinophils # (Manual) PT INR D-Dimer Heparin Anti-Xa Level POC ABG pH ABG pH POC ABG pCO2 POC ABG pO2 ABG pO2 ABG HCO3 ABG O2 Saturation ABG Base Excess ABG Hemoglobin Oxyhemoglobin Sodium Potassium Chloride Carbon Dioxide BUN Creatinine Glucose POC Glucose 118 H 138 H Lactic Acid Calcium Ionized Calcium Phosphorus Magnesium Iron TIBC Ferritin Total Bilirubin Direct Bilirubin AST ALT Alkaline Phosphatase Total Creatine Kinase CK-MB (CK-2) Troponin T C-Reactive Protein Serum Total Protein Total Protein Albumin Sixkx-6-Inpkwnlfk Rvacr-3-Iqvkzqcnw PEP Interpretation Triglycerides LDL Cholesterol Direct HDL Cholesterol Free T4 PTH Intact Urine WBC (Auto) Urine Creatinine Salicylates Acetaminophen Crossmatch 04/06/19 04/06/19 04/06/19 04:44 05:20 05:23 WBC RBC Hgb Hct MCV MCH MCHC RDW Plt Count Lymph % (Auto) [place] % (Auto) Eos % (Auto) Lymph # [place] # Eos # Seg Neutrophils % Seg Neuts % (Manual) Lymphocytes % (Manual) Monocytes % (Manual) Eosinophils % (Manual) Nucleated RBC % Seg Neutrophils # Seg Neutrophils # Man Lymphocytes # (Manual) Monocytes # (Manual) Eosinophils # (Manual) PT INR D-Dimer Heparin Anti-Xa Level POC ABG pH ABG pH POC ABG pCO2 POC ABG pO2 ABG pO2 104.0 H ABG HCO3 ABG O2 Saturation ABG Base Excess -2.1 L ABG Hemoglobin 7.3 L Oxyhemoglobin Sodium Potassium Chloride Carbon Dioxide BUN 64 H Creatinine 8.2 H Glucose 103 H POC Glucose 118 H Lactic Acid Calcium 7.3 L Ionized Calcium Phosphorus Magnesium Iron TIBC Ferritin Total Bilirubin Direct Bilirubin AST ALT Alkaline Phosphatase Total Creatine Kinase CK-MB (CK-2) Troponin T C-Reactive Protein Serum Total Protein Total Protein Albumin Jagdl-3-Oalenbwlh Wnchx-9-Crvjjqytg PEP Interpretation Triglycerides LDL Cholesterol Direct HDL Cholesterol Free T4 PTH Intact Urine WBC (Auto) Urine Creatinine Salicylates Acetaminophen Crossmatch 04/06/19 04/07/19 04/07/19 12:02 05:40 05:40 WBC RBC 2.59 L Hgb 7.9 L Hct 23.8 L MCV MCH MCHC RDW 15.8 H Plt Count 89 L Lymph % (Auto) [place] % (Auto) 10.3 H Eos % (Auto) Lymph # 1.1 L [place] # Eos # Seg Neutrophils % Seg Neuts % (Manual) Lymphocytes % (Manual) Monocytes % (Manual) Eosinophils % (Manual) Nucleated RBC % Seg Neutrophils # Seg Neutrophils # Man Lymphocytes # (Manual) Monocytes # (Manual) Eosinophils # (Manual) PT INR D-Dimer Heparin Anti-Xa Level POC ABG pH ABG pH POC ABG pCO2 POC ABG pO2 ABG pO2 ABG HCO3 ABG O2 Saturation ABG Base Excess ABG Hemoglobin Oxyhemoglobin Sodium 136 L Potassium 3.5 L Chloride Carbon Dioxide BUN 46 H Creatinine 6.2 H Glucose POC Glucose 108 H Lactic Acid Calcium 7.9 L Ionized Calcium Phosphorus Magnesium Iron TIBC Ferritin Total Bilirubin Direct Bilirubin AST ALT Alkaline Phosphatase Total Creatine Kinase CK-MB (CK-2) Troponin T C-Reactive Protein Serum Total Protein Total Protein Albumin Oocmd-9-Ytaevtcvi Iyxqu-4-Gikszzqkj PEP Interpretation Triglycerides LDL Cholesterol Direct HDL Cholesterol Free T4 PTH Intact Urine WBC (Auto) Urine Creatinine Salicylates Acetaminophen Crossmatch 04/07/19 04/09/19 04/09/19 12:57 04:28 04:28 WBC RBC 2.85 L Hgb 8.7 L Hct 26.2 L MCV MCH MCHC RDW 15.6 H Plt Count Lymph % (Auto) [place] % (Auto) 10.4 H Eos % (Auto) Lymph # 1.0 L [place] # Eos # Seg Neutrophils % 73.3 H Seg Neuts % (Manual) Lymphocytes % (Manual) Monocytes % (Manual) Eosinophils % (Manual) Nucleated RBC % Seg Neutrophils # Seg Neutrophils # Man Lymphocytes # (Manual) Monocytes # (Manual) Eosinophils # (Manual) PT INR D-Dimer Heparin Anti-Xa Level POC ABG pH ABG pH POC ABG pCO2 POC ABG pO2 107 H ABG pO2 ABG HCO3 ABG O2 Saturation ABG Base Excess ABG Hemoglobin Oxyhemoglobin Sodium Potassium 3.5 L Chloride 97.8 L Carbon Dioxide BUN 62 H Creatinine 8.1 H Glucose POC Glucose Lactic Acid Calcium 8.2 L Ionized Calcium Phosphorus 5.10 H Magnesium Iron TIBC Ferritin Total Bilirubin Direct Bilirubin AST ALT Alkaline Phosphatase Total Creatine Kinase CK-MB (CK-2) Troponin T C-Reactive Protein Serum Total Protein Total Protein Albumin Qoptp-1-Iokfrmhax Phnhd-6-Zedypcnkj PEP Interpretation Triglycerides LDL Cholesterol Direct HDL Cholesterol Free T4 PTH Intact Urine WBC (Auto) Urine Creatinine Salicylates Acetaminophen Crossmatch 04/10/19 04/11/19 04/11/19 18:15 00:25 04:16 WBC 11.5 H RBC 2.91 L Hgb 8.9 L Hct 27.6 L MCV 95 H MCH MCHC RDW 17.5 H Plt Count Lymph % (Auto) [place] % (Auto) Eos % (Auto) Lymph # [place] # Eos # Seg Neutrophils % Seg Neuts % (Manual) 71.0 H Lymphocytes % (Manual) Monocytes % (Manual) 8.0 H Eosinophils % (Manual) Nucleated RBC % Seg Neutrophils # Seg Neutrophils # Man 8.2 H Lymphocytes # (Manual) Monocytes # (Manual) 0.9 H Eosinophils # (Manual) PT INR D-Dimer Heparin Anti-Xa Level POC ABG pH ABG pH POC ABG pCO2 POC ABG pO2 ABG pO2 ABG HCO3 ABG O2 Saturation ABG Base Excess ABG Hemoglobin Oxyhemoglobin Sodium Potassium Chloride Carbon Dioxide BUN Creatinine Glucose POC Glucose 109 H 114 H Lactic Acid Calcium Ionized Calcium Phosphorus Magnesium Iron TIBC Ferritin Total Bilirubin Direct Bilirubin AST ALT Alkaline Phosphatase Total Creatine Kinase CK-MB (CK-2) Troponin T C-Reactive Protein Serum Total Protein Total Protein Albumin Luxej-3-Jgbnhutpj Yzkmi-9-Uovmdukhr PEP Interpretation Triglycerides LDL Cholesterol Direct HDL Cholesterol Free T4 PTH Intact Urine WBC (Auto) Urine Creatinine Salicylates Acetaminophen Crossmatch 04/11/19 04/11/19 04/11/19 06:47 09:21 12:15 WBC RBC Hgb Hct MCV MCH MCHC RDW Plt Count Lymph % (Auto) [place] % (Auto) Eos % (Auto) Lymph # [place] # Eos # Seg Neutrophils % Seg Neuts % (Manual) Lymphocytes % (Manual) Monocytes % (Manual) Eosinophils % (Manual) Nucleated RBC % Seg Neutrophils # Seg Neutrophils # Man Lymphocytes # (Manual) Monocytes # (Manual) Eosinophils # (Manual) PT INR D-Dimer Heparin Anti-Xa Level POC ABG pH ABG pH POC ABG pCO2 POC ABG pO2 ABG pO2 ABG HCO3 ABG O2 Saturation ABG Base Excess ABG Hemoglobin Oxyhemoglobin Sodium Potassium 3.5 L Chloride Carbon Dioxide BUN 45 H Creatinine 6.0 H Glucose 113 H POC Glucose 106 H 109 H Lactic Acid Calcium Ionized Calcium Phosphorus Magnesium Iron TIBC Ferritin Total Bilirubin Direct Bilirubin AST ALT Alkaline Phosphatase Total Creatine Kinase CK-MB (CK-2) Troponin T C-Reactive Protein Serum Total Protein Total Protein Albumin Trkrm-1-Twuxfulcs Ecelg-7-Rfvnhknul PEP Interpretation Triglycerides LDL Cholesterol Direct HDL Cholesterol Free T4 PTH Intact Urine WBC (Auto) Urine Creatinine Salicylates Acetaminophen Crossmatch 04/11/19 04/12/19 04/12/19 18:42 12:13 23:52 WBC RBC Hgb Hct MCV MCH MCHC RDW Plt Count Lymph % (Auto) [place] % (Auto) Eos % (Auto) Lymph # [place] # Eos # Seg Neutrophils % Seg Neuts % (Manual) Lymphocytes % (Manual) Monocytes % (Manual) Eosinophils % (Manual) Nucleated RBC % Seg Neutrophils # Seg Neutrophils # Man Lymphocytes # (Manual) Monocytes # (Manual) Eosinophils # (Manual) PT INR D-Dimer Heparin Anti-Xa Level POC ABG pH ABG pH POC ABG pCO2 POC ABG pO2 ABG pO2 ABG HCO3 ABG O2 Saturation ABG Base Excess ABG Hemoglobin Oxyhemoglobin Sodium Potassium Chloride Carbon Dioxide BUN Creatinine Glucose POC Glucose 107 H 115 H 124 H Lactic Acid Calcium Ionized Calcium Phosphorus Magnesium Iron TIBC Ferritin Total Bilirubin Direct Bilirubin AST ALT Alkaline Phosphatase Total Creatine Kinase CK-MB (CK-2) Troponin T C-Reactive Protein Serum Total Protein Total Protein Albumin Ohjcb-0-Oeqgginme Ueguc-2-Eozzrdhos PEP Interpretation Triglycerides LDL Cholesterol Direct HDL Cholesterol Free T4 PTH Intact Urine WBC (Auto) Urine Creatinine Salicylates Acetaminophen Crossmatch 04/13/19 04/13/19 04/13/19 05:00 05:00 05:47 WBC 11.7 H RBC 2.97 L Hgb 8.8 L Hct 27.3 L MCV MCH MCHC RDW 16.1 H Plt Count Lymph % (Auto) 9.5 L [place] % (Auto) 9.9 H Eos % (Auto) Lymph # 1.1 L [place] # 1.2 H Eos # Seg Neutrophils % 78.6 H Seg Neuts % (Manual) Lymphocytes % (Manual) Monocytes % (Manual) Eosinophils % (Manual) Nucleated RBC % Seg Neutrophils # 9.2 H Seg Neutrophils # Man Lymphocytes # (Manual) Monocytes # (Manual) Eosinophils # (Manual) PT INR D-Dimer Heparin Anti-Xa Level POC ABG pH ABG pH POC ABG pCO2 POC ABG pO2 ABG pO2 ABG HCO3 ABG O2 Saturation ABG Base Excess ABG Hemoglobin Oxyhemoglobin Sodium Potassium 3.5 L Chloride Carbon Dioxide BUN 42 H Creatinine 4.6 H Glucose 106 H POC Glucose 107 H Lactic Acid Calcium 10.6 H D Ionized Calcium Phosphorus 5.90 H Magnesium Iron TIBC Ferritin Total Bilirubin Direct Bilirubin AST ALT Alkaline Phosphatase Total Creatine Kinase CK-MB (CK-2) Troponin T C-Reactive Protein Serum Total Protein Total Protein 5.8 L Albumin 2.5 L Mfmwn-7-Aeytqzqgp Ebvol-6-Lwoiuusbe PEP Interpretation Triglycerides LDL Cholesterol Direct HDL Cholesterol Free T4 PTH Intact Urine WBC (Auto) Urine Creatinine Salicylates Acetaminophen Crossmatch 04/13/19 04/14/19 04/14/19 17:32 00:00 03:55 WBC RBC Hgb Hct MCV MCH MCHC RDW Plt Count Lymph % (Auto) [place] % (Auto) Eos % (Auto) Lymph # [place] # Eos # Seg Neutrophils % Seg Neuts % (Manual) Lymphocytes % (Manual) Monocytes % (Manual) Eosinophils % (Manual) Nucleated RBC % Seg Neutrophils # Seg Neutrophils # Man Lymphocytes # (Manual) Monocytes # (Manual) Eosinophils # (Manual) PT INR D-Dimer Heparin Anti-Xa Level POC ABG pH ABG pH POC ABG pCO2 POC ABG pO2 ABG pO2 ABG HCO3 ABG O2 Saturation ABG Base Excess ABG Hemoglobin Oxyhemoglobin Sodium Potassium 3.0 L Chloride Carbon Dioxide BUN 30 H Creatinine 3.1 H Glucose POC Glucose 112 H 120 H Lactic Acid Calcium 10.8 H Ionized Calcium Phosphorus Magnesium Iron TIBC Ferritin Total Bilirubin Direct Bilirubin AST ALT Alkaline Phosphatase Total Creatine Kinase CK-MB (CK-2) Troponin T C-Reactive Protein Serum Total Protein Total Protein Albumin Nxyxc-5-Gtwbjtjle Dqtij-7-Jxflmfahh PEP Interpretation Triglycerides LDL Cholesterol Direct HDL Cholesterol Free T4 PTH Intact Urine WBC (Auto) Urine Creatinine Salicylates Acetaminophen Crossmatch 04/14/19 04/14/19 04/15/19 11:56 23:28 05:11 WBC 13.0 H RBC 2.93 L Hgb 8.6 L Hct 26.5 L MCV MCH MCHC RDW 16.5 H Plt Count Lymph % (Auto) 12.2 L [place] % (Auto) 9.1 H Eos % (Auto) Lymph # [place] # 1.2 H Eos # Seg Neutrophils % 77.6 H Seg Neuts % (Manual) Lymphocytes % (Manual) Monocytes % (Manual) Eosinophils % (Manual) Nucleated RBC % Seg Neutrophils # 10.1 H Seg Neutrophils # Man Lymphocytes # (Manual) Monocytes # (Manual) Eosinophils # (Manual) PT INR D-Dimer Heparin Anti-Xa Level POC ABG pH ABG pH POC ABG pCO2 POC ABG pO2 ABG pO2 ABG HCO3 ABG O2 Saturation ABG Base Excess ABG Hemoglobin Oxyhemoglobin Sodium Potassium Chloride Carbon Dioxide BUN Creatinine Glucose POC Glucose 109 H 112 H Lactic Acid Calcium Ionized Calcium Phosphorus Magnesium Iron TIBC Ferritin Total Bilirubin Direct Bilirubin AST ALT Alkaline Phosphatase Total Creatine Kinase CK-MB (CK-2) Troponin T C-Reactive Protein Serum Total Protein Total Protein Albumin Cvksk-5-Hoichprnz Hbmxn-7-Edcjardrz PEP Interpretation Triglycerides LDL Cholesterol Direct HDL Cholesterol Free T4 PTH Intact Urine WBC (Auto) Urine Creatinine Salicylates Acetaminophen Crossmatch 04/15/19 04/15/19 04/15/19 05:11 05:31 18:03 WBC RBC Hgb Hct MCV MCH MCHC RDW Plt Count Lymph % (Auto) [place] % (Auto) Eos % (Auto) Lymph # [place] # Eos # Seg Neutrophils % Seg Neuts % (Manual) Lymphocytes % (Manual) Monocytes % (Manual) Eosinophils % (Manual) Nucleated RBC % Seg Neutrophils # Seg Neutrophils # Man Lymphocytes # (Manual) Monocytes # (Manual) Eosinophils # (Manual) PT INR D-Dimer Heparin Anti-Xa Level POC ABG pH ABG pH POC ABG pCO2 POC ABG pO2 ABG pO2 ABG HCO3 ABG O2 Saturation ABG Base Excess ABG Hemoglobin Oxyhemoglobin Sodium Potassium 3.2 L Chloride Carbon Dioxide BUN 44 H Creatinine 3.6 H Glucose 106 H POC Glucose 110 H 121 H Lactic Acid Calcium 12.0 H Ionized Calcium Phosphorus 5.00 H Magnesium Iron TIBC Ferritin Total Bilirubin Direct Bilirubin AST ALT Alkaline Phosphatase Total Creatine Kinase CK-MB (CK-2) Troponin T C-Reactive Protein Serum Total Protein Total Protein Albumin Xzjal-3-Uvnncxwmj Dqzcf-8-Fxmcmbsei PEP Interpretation Triglycerides LDL Cholesterol Direct HDL Cholesterol Free T4 PTH Intact Urine WBC (Auto) Urine Creatinine Salicylates Acetaminophen Crossmatch 04/16/19 04/16/19 04/17/19 05:07 05:07 04:15 WBC 12.6 H RBC 3.12 L Hgb 9.0 L Hct 28.2 L MCV MCH MCHC RDW 16.6 H Plt Count Lymph % (Auto) 10.3 L [place] % (Auto) 9.8 H Eos % (Auto) Lymph # [place] # 1.2 H Eos # Seg Neutrophils % 78.2 H Seg Neuts % (Manual) Lymphocytes % (Manual) Monocytes % (Manual) Eosinophils % (Manual) Nucleated RBC % Seg Neutrophils # 9.9 H Seg Neutrophils # Man Lymphocytes # (Manual) Monocytes # (Manual) Eosinophils # (Manual) PT INR D-Dimer Heparin Anti-Xa Level POC ABG pH ABG pH POC ABG pCO2 POC ABG pO2 ABG pO2 ABG HCO3 ABG O2 Saturation ABG Base Excess ABG Hemoglobin Oxyhemoglobin Sodium 147 H 150 H Potassium 3.5 L 3.1 L Chloride Carbon Dioxide 32 H BUN 54 H 65 H Creatinine 3.8 H 4.0 H Glucose 102 H 107 H POC Glucose Lactic Acid Calcium 11.7 H 12.0 H Ionized Calcium Phosphorus 5.40 H Magnesium Iron TIBC Ferritin Total Bilirubin Direct Bilirubin AST ALT Alkaline Phosphatase Total Creatine Kinase CK-MB (CK-2) Troponin T C-Reactive Protein 7.10 H Serum Total Protein Total Protein Albumin Ttdwy-3-Cedraulqc Kzbji-1-Mhjgkyyum PEP Interpretation Triglycerides LDL Cholesterol Direct HDL Cholesterol Free T4 PTH Intact Urine WBC (Auto) Urine Creatinine Salicylates Acetaminophen Crossmatch 04/17/19 04/17/19 04/17/19 04:15 06:05 12:49 WBC 15.8 H RBC 3.32 L Hgb 9.5 L Hct 29.9 L MCV MCH MCHC RDW 16.9 H Plt Count Lymph % (Auto) 12.6 L [place] % (Auto) 11.1 H Eos % (Auto) Lymph # [place] # 1.7 H Eos # Seg Neutrophils % 74.7 H Seg Neuts % (Manual) Lymphocytes % (Manual) Monocytes % (Manual) Eosinophils % (Manual) Nucleated RBC % Seg Neutrophils # 11.8 H Seg Neutrophils # Man Lymphocytes # (Manual) Monocytes # (Manual) Eosinophils # (Manual) PT INR D-Dimer Heparin Anti-Xa Level POC ABG pH ABG pH POC ABG pCO2 POC ABG pO2 ABG pO2 ABG HCO3 ABG O2 Saturation ABG Base Excess ABG Hemoglobin Oxyhemoglobin Sodium Potassium Chloride Carbon Dioxide BUN Creatinine Glucose POC Glucose 111 H 108 H Lactic Acid Calcium Ionized Calcium Phosphorus Magnesium Iron TIBC Ferritin Total Bilirubin Direct Bilirubin AST ALT Alkaline Phosphatase Total Creatine Kinase CK-MB (CK-2) Troponin T C-Reactive Protein Serum Total Protein Total Protein Albumin Jduvy-4-Bkgpikoeb Mcdqo-7-Afvznjxxw PEP Interpretation Triglycerides LDL Cholesterol Direct HDL Cholesterol Free T4 PTH Intact Urine WBC (Auto) Urine Creatinine Salicylates Acetaminophen Crossmatch 04/18/19 04/18/19 04/18/19 00:23 04:41 04:41 WBC 19.4 H RBC 3.03 L Hgb 8.6 L Hct 27.5 L MCV MCH MCHC 31 L RDW 16.9 H Plt Count Lymph % (Auto) [place] % (Auto) Eos % (Auto) Lymph # [place] # Eos # Seg Neutrophils % Seg Neuts % (Manual) Lymphocytes % (Manual) Monocytes % (Manual) Eosinophils % (Manual) Nucleated RBC % Seg Neutrophils # Seg Neutrophils # Man Lymphocytes # (Manual) Monocytes # (Manual) Eosinophils # (Manual) PT INR D-Dimer Heparin Anti-Xa Level POC ABG pH ABG pH POC ABG pCO2 POC ABG pO2 ABG pO2 ABG HCO3 ABG O2 Saturation ABG Base Excess ABG Hemoglobin Oxyhemoglobin Sodium 152 H Potassium 3.0 L Chloride Carbon Dioxide BUN 80 H Creatinine 4.3 H Glucose 103 H POC Glucose 115 H Lactic Acid Calcium 11.4 H Ionized Calcium Phosphorus Magnesium Iron TIBC Ferritin Total Bilirubin Direct Bilirubin AST ALT Alkaline Phosphatase Total Creatine Kinase CK-MB (CK-2) Troponin T C-Reactive Protein Serum Total Protein Total Protein Albumin Zjiid-4-Qdkwtsutd Gwvao-2-Nzxwcjbwc PEP Interpretation Triglycerides LDL Cholesterol Direct HDL Cholesterol Free T4 PTH Intact Urine WBC (Auto) Urine Creatinine Salicylates Acetaminophen Crossmatch 04/18/19 04/18/19 04/18/19 06:17 12:16 18:10 WBC RBC Hgb Hct MCV MCH MCHC RDW Plt Count Lymph % (Auto) [place] % (Auto) Eos % (Auto) Lymph # [place] # Eos # Seg Neutrophils % Seg Neuts % (Manual) Lymphocytes % (Manual) Monocytes % (Manual) Eosinophils % (Manual) Nucleated RBC % Seg Neutrophils # Seg Neutrophils # Man Lymphocytes # (Manual) Monocytes # (Manual) Eosinophils # (Manual) PT INR D-Dimer Heparin Anti-Xa Level POC ABG pH ABG pH POC ABG pCO2 POC ABG pO2 ABG pO2 ABG HCO3 ABG O2 Saturation ABG Base Excess ABG Hemoglobin Oxyhemoglobin Sodium Potassium Chloride Carbon Dioxide BUN Creatinine Glucose POC Glucose 124 H 119 H 111 H Lactic Acid Calcium Ionized Calcium Phosphorus Magnesium Iron TIBC Ferritin Total Bilirubin Direct Bilirubin AST ALT Alkaline Phosphatase Total Creatine Kinase CK-MB (CK-2) Troponin T C-Reactive Protein Serum Total Protein Total Protein Albumin Syqwb-3-Cfuwngsfu Zzafy-9-Wzakbbeib PEP Interpretation Triglycerides LDL Cholesterol Direct HDL Cholesterol Free T4 PTH Intact Urine WBC (Auto) Urine Creatinine Salicylates Acetaminophen Crossmatch 04/19/19 04/19/19 04/20/19 03:49 05:27 09:09 WBC RBC Hgb Hct MCV MCH MCHC RDW Plt Count Lymph % (Auto) [place] % (Auto) Eos % (Auto) Lymph # [place] # Eos # Seg Neutrophils % Seg Neuts % (Manual) Lymphocytes % (Manual) Monocytes % (Manual) Eosinophils % (Manual) Nucleated RBC % Seg Neutrophils # Seg Neutrophils # Man Lymphocytes # (Manual) Monocytes # (Manual) Eosinophils # (Manual) PT INR D-Dimer Heparin Anti-Xa Level POC ABG pH ABG pH POC ABG pCO2 POC ABG pO2 ABG pO2 ABG HCO3 ABG O2 Saturation ABG Base Excess ABG Hemoglobin Oxyhemoglobin Sodium 147 H 150 H Potassium 3.3 L Chloride 108.9 H Carbon Dioxide BUN 45 H 70 H Creatinine 2.9 H 4.1 H Glucose 105 H POC Glucose 124 H Lactic Acid Calcium 10.6 H 11.6 H Ionized Calcium Phosphorus Magnesium Iron TIBC Ferritin Total Bilirubin Direct Bilirubin AST ALT Alkaline Phosphatase Total Creatine Kinase CK-MB (CK-2) Troponin T C-Reactive Protein Serum Total Protein Total Protein Albumin Zwuzf-6-Onbvelasn Xcsrx-7-Nusfvuovh PEP Interpretation Triglycerides LDL Cholesterol Direct HDL Cholesterol Free T4 PTH Intact Urine WBC (Auto) Urine Creatinine Salicylates Acetaminophen Crossmatch 04/20/19 04/20/19 04/21/19 12:29 18:45 01:34 WBC RBC Hgb Hct MCV MCH MCHC RDW Plt Count Lymph % (Auto) [place] % (Auto) Eos % (Auto) Lymph # [place] # Eos # Seg Neutrophils % Seg Neuts % (Manual) Lymphocytes % (Manual) Monocytes % (Manual) Eosinophils % (Manual) Nucleated RBC % Seg Neutrophils # Seg Neutrophils # Man Lymphocytes # (Manual) Monocytes # (Manual) Eosinophils # (Manual) PT INR D-Dimer Heparin Anti-Xa Level POC ABG pH ABG pH POC ABG pCO2 POC ABG pO2 ABG pO2 ABG HCO3 ABG O2 Saturation ABG Base Excess ABG Hemoglobin Oxyhemoglobin Sodium Potassium Chloride Carbon Dioxide BUN 40 H Creatinine 2.6 H Glucose 104 H POC Glucose 131 H 134 H Lactic Acid Calcium 11.0 H Ionized Calcium Phosphorus Magnesium Iron TIBC Ferritin Total Bilirubin Direct Bilirubin AST ALT Alkaline Phosphatase Total Creatine Kinase CK-MB (CK-2) Troponin T C-Reactive Protein Serum Total Protein Total Protein Albumin Nqmtg-3-Pxhwlzpqp Thqtv-2-Ddxyphjqe PEP Interpretation Triglycerides LDL Cholesterol Direct HDL Cholesterol Free T4 PTH Intact Urine WBC (Auto) Urine Creatinine Salicylates Acetaminophen Crossmatch 04/21/19 04/21/19 04/22/19 04:22 04:22 04:24 WBC 14.2 H 14.3 H RBC 3.02 L 3.57 L Hgb 8.7 L 10.1 L Hct 27.2 L 32.1 L MCV MCH MCHC RDW 16.7 H 17.2 H Plt Count Lymph % (Auto) [place] % (Auto) Eos % (Auto) Lymph # [place] # Eos # Seg Neutrophils % Seg Neuts % (Manual) Lymphocytes % (Manual) Monocytes % (Manual) Eosinophils % (Manual) Nucleated RBC % Seg Neutrophils # Seg Neutrophils # Man Lymphocytes # (Manual) Monocytes # (Manual) Eosinophils # (Manual) PT INR D-Dimer Heparin Anti-Xa Level POC ABG pH ABG pH POC ABG pCO2 POC ABG pO2 ABG pO2 ABG HCO3 ABG O2 Saturation ABG Base Excess ABG Hemoglobin Oxyhemoglobin Sodium Potassium Chloride Carbon Dioxide BUN Creatinine Glucose POC Glucose Lactic Acid Calcium Ionized Calcium Phosphorus Magnesium Iron TIBC Ferritin Total Bilirubin Direct Bilirubin AST ALT Alkaline Phosphatase Total Creatine Kinase CK-MB (CK-2) Troponin T C-Reactive Protein Serum Total Protein 5.7 L Total Protein Albumin 2.3 L Vhezc-9-Jarzufixk 0.5 H Koiwa-8-Wwapilspb 1.0 H PEP Interpretation see below H Triglycerides LDL Cholesterol Direct HDL Cholesterol Free T4 PTH Intact Urine WBC (Auto) Urine Creatinine Salicylates Acetaminophen Crossmatch 04/22/19 04/22/19 04/22/19 04:24 06:37 11:57 WBC RBC Hgb Hct MCV MCH MCHC RDW Plt Count Lymph % (Auto) [place] % (Auto) Eos % (Auto) Lymph # [place] # Eos # Seg Neutrophils % Seg Neuts % (Manual) Lymphocytes % (Manual) Monocytes % (Manual) Eosinophils % (Manual) Nucleated RBC % Seg Neutrophils # Seg Neutrophils # Man Lymphocytes # (Manual) Monocytes # (Manual) Eosinophils # (Manual) PT INR D-Dimer Heparin Anti-Xa Level POC ABG pH ABG pH POC ABG pCO2 POC ABG pO2 ABG pO2 ABG HCO3 ABG O2 Saturation ABG Base Excess ABG Hemoglobin Oxyhemoglobin Sodium Potassium Chloride Carbon Dioxide BUN 54 H Creatinine 3.5 H Glucose POC Glucose 113 H 110 H Lactic Acid Calcium 11.4 H Ionized Calcium Phosphorus Magnesium Iron TIBC Ferritin Total Bilirubin Direct Bilirubin AST ALT Alkaline Phosphatase Total Creatine Kinase CK-MB (CK-2) Troponin T C-Reactive Protein Serum Total Protein Total Protein Albumin Guobu-3-Rpzpxcoyb Bkhck-0-Hnaalgvlv PEP Interpretation Triglycerides LDL Cholesterol Direct HDL Cholesterol Free T4 PTH Intact Urine WBC (Auto) Urine Creatinine Salicylates Acetaminophen Crossmatch 04/22/19 04/23/19 04/23/19 18:33 04:06 04:06 WBC 16.1 H RBC 3.36 L Hgb 9.8 L Hct 30.8 L MCV MCH MCHC RDW 17.7 H Plt Count Lymph % (Auto) 9.9 L [place] % (Auto) Eos % (Auto) Lymph # [place] # Eos # Seg Neutrophils % 84.2 H Seg Neuts % (Manual) Lymphocytes % (Manual) Monocytes % (Manual) Eosinophils % (Manual) Nucleated RBC % Seg Neutrophils # 13.6 H Seg Neutrophils # Man Lymphocytes # (Manual) Monocytes # (Manual) Eosinophils # (Manual) PT INR D-Dimer Heparin Anti-Xa Level POC ABG pH ABG pH POC ABG pCO2 POC ABG pO2 ABG pO2 ABG HCO3 ABG O2 Saturation ABG Base Excess ABG Hemoglobin Oxyhemoglobin Sodium Potassium Chloride Carbon Dioxide BUN 59 H Creatinine 3.8 H Glucose POC Glucose 120 H Lactic Acid Calcium 12.3 H* Ionized Calcium Phosphorus 5.70 H Magnesium Iron TIBC Ferritin Total Bilirubin Direct Bilirubin AST ALT Alkaline Phosphatase Total Creatine Kinase CK-MB (CK-2) Troponin T C-Reactive Protein Serum Total Protein Total Protein Albumin 3.2 L Njfyt-0-Wexmjeyst Qlavs-2-Wpsoztbca PEP Interpretation Triglycerides LDL Cholesterol Direct HDL Cholesterol Free T4 PTH Intact Urine WBC (Auto) Urine Creatinine Salicylates Acetaminophen Crossmatch 04/23/19 04/24/19 04/24/19 18:06 04:12 04:12 WBC 18.0 H RBC 3.46 L Hgb 9.8 L Hct 31.2 L MCV MCH MCHC 31 L RDW 17.5 H Plt Count Lymph % (Auto) 11.1 L [place] % (Auto) Eos % (Auto) Lymph # [place] # Eos # Seg Neutrophils % 81.9 H Seg Neuts % (Manual) Lymphocytes % (Manual) Monocytes % (Manual) Eosinophils % (Manual) Nucleated RBC % Seg Neutrophils # 14.7 H Seg Neutrophils # Man Lymphocytes # (Manual) Monocytes # (Manual) Eosinophils # (Manual) PT INR D-Dimer Heparin Anti-Xa Level POC ABG pH ABG pH POC ABG pCO2 POC ABG pO2 ABG pO2 ABG HCO3 ABG O2 Saturation ABG Base Excess ABG Hemoglobin Oxyhemoglobin Sodium Potassium Chloride Carbon Dioxide BUN 56 H Creatinine 3.6 H Glucose POC Glucose 124 H Lactic Acid Calcium 12.6 H* Ionized Calcium Phosphorus Magnesium Iron TIBC Ferritin Total Bilirubin Direct Bilirubin AST ALT Alkaline Phosphatase Total Creatine Kinase CK-MB (CK-2) Troponin T C-Reactive Protein Serum Total Protein Total Protein Albumin 3.2 L [id number] PEP Interpretation Triglycerides LDL Cholesterol Direct HDL Cholesterol Free T4 PTH Intact Urine WBC (Auto) Urine Creatinine Salicylates Acetaminophen Crossmatch 04/24/19 04/24/19 04/25/19 06:21 11:47 05:58 WBC 18.0 H RBC 2.98 L Hgb 8.3 L Hct 26.5 L MCV MCH MCHC 31 L RDW 17.9 H Plt Count Lymph % (Auto) 10.1 L [place] % (Auto) Eos % (Auto) Lymph # [place] # 0.9 H Eos # Seg Neutrophils % 82.8 H Seg Neuts % (Manual) Lymphocytes % (Manual) Monocytes % (Manual) Eosinophils % (Manual) Nucleated RBC % Seg Neutrophils # 15.0 H Seg Neutrophils # Man Lymphocytes # (Manual) Monocytes # (Manual) Eosinophils # (Manual) PT INR D-Dimer Heparin Anti-Xa Level POC ABG pH ABG pH POC ABG pCO2 POC ABG pO2 ABG pO2 ABG HCO3 ABG O2 Saturation ABG Base Excess ABG Hemoglobin Oxyhemoglobin Sodium Potassium Chloride Carbon Dioxide BUN Creatinine Glucose POC Glucose 132 H 106 H Lactic Acid Calcium Ionized Calcium Phosphorus Magnesium Iron TIBC Ferritin Total Bilirubin Direct Bilirubin AST ALT Alkaline Phosphatase Total Creatine Kinase CK-MB (CK-2) Troponin T C-Reactive Protein Serum Total Protein Total Protein Albumin Guwmy-6-Kmawsixsb Jxpnp-1-Xipifhdlo PEP Interpretation Triglycerides LDL Cholesterol Direct HDL Cholesterol Free T4 PTH Intact Urine WBC (Auto) Urine Creatinine Salicylates Acetaminophen Crossmatch 04/25/19 04/26/19 04/26/19 05:58 05:57 06:08 WBC RBC Hgb Hct MCV MCH MCHC RDW Plt Count Lymph % (Auto) [place] % (Auto) Eos % (Auto) Lymph # [place] # Eos # Seg Neutrophils % Seg Neuts % (Manual) Lymphocytes % (Manual) Monocytes % (Manual) Eosinophils % (Manual) Nucleated RBC % Seg Neutrophils # Seg Neutrophils # Man Lymphocytes # (Manual) Monocytes # (Manual) Eosinophils # (Manual) PT INR D-Dimer Heparin Anti-Xa Level POC ABG pH ABG pH POC ABG pCO2 POC ABG pO2 ABG pO2 ABG HCO3 ABG O2 Saturation ABG Base Excess ABG Hemoglobin Oxyhemoglobin Sodium Potassium 3.2 L Chloride Carbon Dioxide BUN 52 H 48 H Creatinine 3.2 H 2.9 H Glucose 108 H 112 H POC Glucose 109 H Lactic Acid Calcium 11.4 H 12.5 H* Ionized Calcium Phosphorus 5.90 H Magnesium Iron TIBC Ferritin Total Bilirubin Direct Bilirubin AST ALT Alkaline Phosphatase Total Creatine Kinase CK-MB (CK-2) Troponin T C-Reactive Protein Serum Total Protein Total Protein Albumin 3.0 L Mfyzw-4-Wxzpmhpsl Lxrcl-3-Daphofcfq PEP Interpretation Triglycerides LDL Cholesterol Direct HDL Cholesterol Free T4 PTH Intact Urine WBC (Auto) Urine Creatinine Salicylates Acetaminophen Crossmatch 04/26/19 04/26/19 04/27/19 07:22 13:39 05:05 WBC 11.9 H RBC 3.01 L Hgb 8.6 L Hct 26.3 L MCV MCH MCHC RDW 17.6 H Plt Count Lymph % (Auto) 11.9 L [place] % (Auto) Eos % (Auto) Lymph # [place] # Eos # Seg Neutrophils % 78.3 H Seg Neuts % (Manual) Lymphocytes % (Manual) Monocytes % (Manual) Eosinophils % (Manual) Nucleated RBC % Seg Neutrophils # 9.4 H Seg Neutrophils # Man Lymphocytes # (Manual) Monocytes # (Manual) Eosinophils # (Manual) PT INR D-Dimer Heparin Anti-Xa Level POC ABG pH ABG pH POC ABG pCO2 POC ABG pO2 ABG pO2 ABG HCO3 ABG O2 Saturation ABG Base Excess ABG Hemoglobin Oxyhemoglobin Sodium Potassium Chloride Carbon Dioxide BUN 46 H Creatinine 2.8 H Glucose POC Glucose Lactic Acid Calcium > 13.0 H* 12.2 H* Ionized Calcium Phosphorus Magnesium Iron TIBC Ferritin Total Bilirubin Direct Bilirubin AST ALT Alkaline Phosphatase Total Creatine Kinase CK-MB (CK-2) Troponin T C-Reactive Protein Serum Total Protein Total Protein Albumin Hpepd-3-Vpkjadghz Qfwar-0-Cpfqlzmqb PEP Interpretation Triglycerides LDL Cholesterol Direct HDL Cholesterol Free T4 PTH Intact Urine WBC (Auto) Urine Creatinine Salicylates Acetaminophen Crossmatch 04/27/19 04/28/19 04/29/19 05:05 05:17 14:14 WBC RBC Hgb Hct MCV MCH MCHC RDW Plt Count Lymph % (Auto) [place] % (Auto) Eos % (Auto) Lymph # [place] # Eos # Seg Neutrophils % Seg Neuts % (Manual) Lymphocytes % (Manual) Monocytes % (Manual) Eosinophils % (Manual) Nucleated RBC % Seg Neutrophils # Seg Neutrophils # Man Lymphocytes # (Manual) Monocytes # (Manual) Eosinophils # (Manual) PT INR D-Dimer Heparin Anti-Xa Level POC ABG pH ABG pH POC ABG pCO2 POC ABG pO2 ABG pO2 ABG HCO3 ABG O2 Saturation ABG Base Excess ABG Hemoglobin Oxyhemoglobin Sodium 136 L Potassium 3.2 L 3.4 L Chloride Carbon Dioxide BUN 40 H 34 H 33 H Creatinine 2.5 H 2.0 H 1.9 H Glucose 113 H 107 H POC Glucose Lactic Acid Calcium 12.3 H* 12.1 H* 11.5 H Ionized Calcium Phosphorus Magnesium Iron TIBC Ferritin Total Bilirubin Direct Bilirubin AST ALT Alkaline Phosphatase Total Creatine Kinase CK-MB (CK-2) Troponin T C-Reactive Protein Serum Total Protein Total Protein 6.2 L Albumin 2.8 L Ldahy-7-Vhuoywhpb Gdhpw-5-Qesamkmla PEP Interpretation Triglycerides LDL Cholesterol Direct HDL Cholesterol Free T4 PTH Intact Urine WBC (Auto) Urine Creatinine Salicylates Acetaminophen Crossmatch 04/29/19 04/29/19 04/30/19 14:14 14:14 06:47 WBC RBC Hgb Hct MCV MCH MCHC RDW Plt Count Lymph % (Auto) [place] % (Auto) Eos % (Auto) Lymph # [place] # Eos # Seg Neutrophils % Seg Neuts % (Manual) Lymphocytes % (Manual) Monocytes % (Manual) Eosinophils % (Manual) Nucleated RBC % Seg Neutrophils # Seg Neutrophils # Man Lymphocytes # (Manual) Monocytes # (Manual) Eosinophils # (Manual) PT INR D-Dimer Heparin Anti-Xa Level POC ABG pH ABG pH POC ABG pCO2 POC ABG pO2 ABG pO2 ABG HCO3 ABG O2 Saturation ABG Base Excess ABG Hemoglobin Oxyhemoglobin Sodium Potassium 3.2 L Chloride Carbon Dioxide 21 L BUN 26 H Creatinine 1.8 H Glucose POC Glucose Lactic Acid Calcium 10.8 H Ionized Calcium 7.2 H* Phosphorus Magnesium Iron TIBC Ferritin Total Bilirubin Direct Bilirubin AST ALT Alkaline Phosphatase Total Creatine Kinase CK-MB (CK-2) Troponin T C-Reactive Protein Serum Total Protein Total Protein Albumin Ybnto-4-Eoazxewrd Wdgvn-1-Rpwhhujcu PEP Interpretation Triglycerides LDL Cholesterol Direct HDL Cholesterol Free T4 PTH Intact 8.83 L Urine WBC (Auto) Urine Creatinine Salicylates Acetaminophen Crossmatch 04/30/19 05/01/19 05/01/19 12:17 06:52 06:52 WBC 15.4 H RBC 3.01 L Hgb 8.4 L Hct 26.2 L MCV MCH MCHC RDW 17.0 H Plt Count Lymph % (Auto) 8.4 L [place] % (Auto) 8.9 H Eos % (Auto) Lymph # [place] # 1.4 H Eos # 0.5 H Seg Neutrophils % 78.7 H Seg Neuts % (Manual) Lymphocytes % (Manual) Monocytes % (Manual) Eosinophils % (Manual) Nucleated RBC % Seg Neutrophils # 12.1 H Seg Neutrophils # Man Lymphocytes # (Manual) Monocytes # (Manual) Eosinophils # (Manual) PT INR D-Dimer Heparin Anti-Xa Level POC ABG pH ABG pH POC ABG pCO2 POC ABG pO2 ABG pO2 ABG HCO3 ABG O2 Saturation ABG Base Excess ABG Hemoglobin Oxyhemoglobin Sodium Potassium 3.0 L Chloride Carbon Dioxide BUN 22 H Creatinine Glucose POC Glucose 106 H Lactic Acid Calcium 11.2 H Ionized Calcium Phosphorus Magnesium Iron TIBC Ferritin Total Bilirubin Direct Bilirubin AST ALT Alkaline Phosphatase Total Creatine Kinase CK-MB (CK-2) Troponin T C-Reactive Protein Serum Total Protein Total Protein Albumin 3.0 L Veags-9-Blhxjoglv Pyijp-3-Aewkdvbhw PEP Interpretation Triglycerides LDL Cholesterol Direct HDL Cholesterol Free T4 PTH Intact Urine WBC (Auto) Urine Creatinine Salicylates Acetaminophen Crossmatch 05/01/19 05/01/19 05/02/19 06:52 18:40 05:32 WBC RBC Hgb Hct MCV MCH MCHC RDW Plt Count Lymph % (Auto) [place] % (Auto) Eos % (Auto) Lymph # [place] # Eos # Seg Neutrophils % Seg Neuts % (Manual) Lymphocytes % (Manual) Monocytes % (Manual) Eosinophils % (Manual) Nucleated RBC % Seg Neutrophils # Seg Neutrophils # Man Lymphocytes # (Manual) Monocytes # (Manual) Eosinophils # (Manual) PT INR D-Dimer Heparin Anti-Xa Level POC ABG pH ABG pH POC ABG pCO2 POC ABG pO2 ABG pO2 ABG HCO3 ABG O2 Saturation ABG Base Excess ABG Hemoglobin Oxyhemoglobin Sodium Potassium Chloride Carbon Dioxide BUN Creatinine Glucose POC Glucose 169 H 109 H Lactic Acid Calcium Ionized Calcium Phosphorus Magnesium Iron TIBC Ferritin Total Bilirubin Direct Bilirubin AST ALT Alkaline Phosphatase Total Creatine Kinase CK-MB (CK-2) Troponin T C-Reactive Protein Serum Total Protein 5.7 L Total Protein Albumin 2.5 L Uudkd-8-Qhwpnpdqe 0.5 H Dpdyi-8-Gzdpsonde PEP Interpretation see below H Triglycerides LDL Cholesterol Direct HDL Cholesterol Free T4 PTH Intact Urine WBC (Auto) Urine Creatinine Salicylates Acetaminophen Crossmatch 05/02/19 05/02/19 05/02/19 05:57 05:57 11:43 WBC 14.2 H RBC 2.96 L Hgb 8.3 L Hct 26.0 L MCV MCH MCHC RDW 16.8 H Plt Count Lymph % (Auto) [place] % (Auto) Eos % (Auto) Lymph # [place] # Eos # Seg Neutrophils % Seg Neuts % (Manual) Lymphocytes % (Manual) Monocytes % (Manual) Eosinophils % (Manual) Nucleated RBC % Seg Neutrophils # Seg Neutrophils # Man Lymphocytes # (Manual) Monocytes # (Manual) Eosinophils # (Manual) PT INR D-Dimer Heparin Anti-Xa Level POC ABG pH ABG pH POC ABG pCO2 POC ABG pO2 ABG pO2 ABG HCO3 ABG O2 Saturation ABG Base Excess ABG Hemoglobin Oxyhemoglobin Sodium 136 L Potassium 3.5 L Chloride Carbon Dioxide BUN 21 H Creatinine Glucose POC Glucose 108 H Lactic Acid Calcium 11.1 H Ionized Calcium Phosphorus Magnesium Iron TIBC Ferritin Total Bilirubin Direct Bilirubin AST ALT Alkaline Phosphatase Total Creatine Kinase CK-MB (CK-2) Troponin T C-Reactive Protein Serum Total Protein Total Protein Albumin Mtpsk-9-Opwkvvqmf Wluke-9-Asdksdvuo PEP Interpretation Triglycerides LDL Cholesterol Direct HDL Cholesterol Free T4 PTH Intact Urine WBC (Auto) Urine Creatinine Salicylates Acetaminophen Crossmatch 05/03/19 05/03/19 05/04/19 05:37 05:37 06:49 WBC 12.7 H 11.1 H RBC 3.01 L 3.07 L Hgb 8.3 L 8.6 L Hct 26.1 L 26.6 L MCV MCH MCHC RDW 16.9 H 17.3 H Plt Count Lymph % (Auto) [place] % (Auto) 9.0 H Eos % (Auto) 4.9 H Lymph # [place] # 1.0 H Eos # 0.5 H Seg Neutrophils % Seg Neuts % (Manual) Lymphocytes % (Manual) Monocytes % (Manual) Eosinophils % (Manual) Nucleated RBC % Seg Neutrophils # 7.8 H Seg Neutrophils # Man Lymphocytes # (Manual) Monocytes # (Manual) Eosinophils # (Manual) PT INR D-Dimer Heparin Anti-Xa Level POC ABG pH ABG pH POC ABG pCO2 POC ABG pO2 ABG pO2 ABG HCO3 ABG O2 Saturation ABG Base Excess ABG Hemoglobin Oxyhemoglobin Sodium 135 L Potassium 3.3 L Chloride Carbon Dioxide BUN Creatinine Glucose POC Glucose Lactic Acid Calcium 10.9 H Ionized Calcium Phosphorus Magnesium 1.50 L Iron TIBC Ferritin Total Bilirubin Direct Bilirubin AST ALT Alkaline Phosphatase Total Creatine Kinase CK-MB (CK-2) Troponin T C-Reactive Protein Serum Total Protein Total Protein Albumin Cmwqx-1-Foedhierj Bfoac-9-Qmmnterjb PEP Interpretation Triglycerides LDL Cholesterol Direct HDL Cholesterol Free T4 PTH Intact Urine WBC (Auto) Urine Creatinine Salicylates Acetaminophen Crossmatch 05/04/19 05/04/19 05/04/19 06:49 06:49 11:58 WBC RBC Hgb Hct MCV MCH MCHC RDW Plt Count Lymph % (Auto) [place] % (Auto) Eos % (Auto) Lymph # [place] # Eos # Seg Neutrophils % Seg Neuts % (Manual) Lymphocytes % (Manual) Monocytes % (Manual) Eosinophils % (Manual) Nucleated RBC % Seg Neutrophils # Seg Neutrophils # Man Lymphocytes # (Manual) Monocytes # (Manual) Eosinophils # (Manual) PT 15.5 H INR 1.24 H D-Dimer Heparin Anti-Xa Level POC ABG pH ABG pH POC ABG pCO2 POC ABG pO2 ABG pO2 ABG HCO3 ABG O2 Saturation ABG Base Excess ABG Hemoglobin Oxyhemoglobin Sodium Potassium Chloride Carbon Dioxide 19 L BUN Creatinine Glucose POC Glucose 111 H Lactic Acid Calcium 10.7 H Ionized Calcium Phosphorus Magnesium Iron TIBC Ferritin Total Bilirubin Direct Bilirubin AST ALT Alkaline Phosphatase Total Creatine Kinase CK-MB (CK-2) Troponin T C-Reactive Protein Serum Total Protein Total Protein Albumin Lpshp-7-Cfwspbmta Ohipy-2-Lknkdjmuy PEP Interpretation Triglycerides LDL Cholesterol Direct HDL Cholesterol Free T4 PTH Intact Urine WBC (Auto) Urine Creatinine Salicylates Acetaminophen Crossmatch 05/05/19 05/05/19 05/07/19 06:14 06:14 05:55 WBC 11.5 H 12.0 H RBC 3.08 L 3.33 L Hgb 8.5 L 9.2 L Hct 26.5 L 28.5 L MCV MCH MCHC RDW 17.1 H 17.6 H Plt Count Lymph % (Auto) [place] % (Auto) Eos % (Auto) 8.2 H Lymph # [place] # Eos # 1.0 H Seg Neutrophils % Seg Neuts % (Manual) Lymphocytes % (Manual) Monocytes % (Manual) Eosinophils % (Manual) Nucleated RBC % Seg Neutrophils # 8.2 H Seg Neutrophils # Man Lymphocytes # (Manual) Monocytes # (Manual) Eosinophils # (Manual) PT INR D-Dimer Heparin Anti-Xa Level POC ABG pH ABG pH POC ABG pCO2 POC ABG pO2 ABG pO2 ABG HCO3 ABG O2 Saturation ABG Base Excess ABG Hemoglobin Oxyhemoglobin Sodium 136 L Potassium Chloride Carbon Dioxide 21 L BUN Creatinine Glucose POC Glucose Lactic Acid Calcium 10.3 H Ionized Calcium Phosphorus Magnesium Iron TIBC Ferritin Total Bilirubin Direct Bilirubin AST ALT Alkaline Phosphatase Total Creatine Kinase CK-MB (CK-2) Troponin T C-Reactive Protein Serum Total Protein Total Protein Albumin Abzxs-9-Zxyrzeujx Cfxww-1-Mqveldyua PEP Interpretation Triglycerides LDL Cholesterol Direct HDL Cholesterol Free T4 PTH Intact Urine WBC (Auto) Urine Creatinine Salicylates Acetaminophen Crossmatch 05/07/19 05/08/19 05/08/19 05:55 07:27 07:27 WBC 12.5 H RBC 3.50 L Hgb 9.4 L Hct 30.4 L MCV MCH 27 L MCHC 31 L RDW 17.2 H Plt Count Lymph % (Auto) [place] % (Auto) Eos % (Auto) 10.3 H Lymph # [place] # Eos # 1.3 H Seg Neutrophils % Seg Neuts % (Manual) Lymphocytes % (Manual) Monocytes % (Manual) Eosinophils % (Manual) Nucleated RBC % Seg Neutrophils # 8.7 H Seg Neutrophils # Man Lymphocytes # (Manual) Monocytes # (Manual) Eosinophils # (Manual) PT INR D-Dimer Heparin Anti-Xa Level POC ABG pH ABG pH POC ABG pCO2 POC ABG pO2 ABG pO2 ABG HCO3 ABG O2 Saturation ABG Base Excess ABG Hemoglobin Oxyhemoglobin Sodium Potassium 3.5 L Chloride Carbon Dioxide 20 L 20 L BUN Creatinine Glucose POC Glucose Lactic Acid Calcium 10.7 H 10.7 H Ionized Calcium Phosphorus Magnesium Iron TIBC Ferritin Total Bilirubin Direct Bilirubin AST ALT Alkaline Phosphatase Total Creatine Kinase CK-MB (CK-2) Troponin T C-Reactive Protein Serum Total Protein Total Protein Albumin 3.2 L 3.4 L Cncvp-8-Iipgianyi Bfffm-5-Gxsqfwrrd PEP Interpretation Triglycerides LDL Cholesterol Direct HDL Cholesterol Free T4 PTH Intact Urine WBC (Auto) Urine Creatinine Salicylates Acetaminophen Crossmatch 05/09/19 05/09/19 05/10/19 05:41 05:41 06:42 WBC 11.7 H RBC 3.27 L Hgb 9.2 L Hct 27.9 L MCV MCH MCHC RDW 17.8 H Plt Count Lymph % (Auto) [place] % (Auto) Eos % (Auto) 14.3 H Lymph # [place] # Eos # 1.7 H Seg Neutrophils % Seg Neuts % (Manual) Lymphocytes % (Manual) Monocytes % (Manual) Eosinophils % (Manual) Nucleated RBC % Seg Neutrophils # Seg Neutrophils # Man Lymphocytes # (Manual) Monocytes # (Manual) Eosinophils # (Manual) PT INR 1.17 H D-Dimer Heparin Anti-Xa Level POC ABG pH ABG pH POC ABG pCO2 POC ABG pO2 ABG pO2 ABG HCO3 ABG O2 Saturation ABG Base Excess ABG Hemoglobin Oxyhemoglobin Sodium 136 L Potassium Chloride Carbon Dioxide 21 L BUN Creatinine Glucose POC Glucose Lactic Acid Calcium 10.6 H Ionized Calcium Phosphorus Magnesium Iron TIBC Ferritin Total Bilirubin Direct Bilirubin AST ALT Alkaline Phosphatase Total Creatine Kinase CK-MB (CK-2) Troponin T C-Reactive Protein Serum Total Protein Total Protein Albumin 3.3 L Hjnwj-8-Tubrebecb Pbyxp-1-Ilffnryyh PEP Interpretation Triglycerides LDL Cholesterol Direct HDL Cholesterol Free T4 PTH Intact Urine WBC (Auto) Urine Creatinine Salicylates Acetaminophen Crossmatch 05/10/19 05/11/19 05/13/19 06:42 04:40 08:32 WBC 11.8 H RBC 3.48 L Hgb 9.5 L Hct 30.0 L MCV MCH 27 L MCHC RDW 18.0 H Plt Count Lymph % (Auto) [place] % (Auto) Eos % (Auto) Lymph # [place] # Eos # Seg Neutrophils % Seg Neuts % (Manual) 73.0 H Lymphocytes % (Manual) 11.0 L Monocytes % (Manual) Eosinophils % (Manual) 12.0 H Nucleated RBC % Seg Neutrophils # Seg Neutrophils # Man 8.6 H Lymphocytes # (Manual) Monocytes # (Manual) Eosinophils # (Manual) 1.4 H PT INR D-Dimer Heparin Anti-Xa Level POC ABG pH ABG pH POC ABG pCO2 POC ABG pO2 ABG pO2 ABG HCO3 ABG O2 Saturation ABG Base Excess ABG Hemoglobin Oxyhemoglobin Sodium Potassium Chloride Carbon Dioxide 21 L 20 L BUN Creatinine Glucose POC Glucose Lactic Acid Calcium Ionized Calcium Phosphorus Magnesium Iron TIBC Ferritin Total Bilirubin Direct Bilirubin AST ALT Alkaline Phosphatase Total Creatine Kinase CK-MB (CK-2) Troponin T C-Reactive Protein Serum Total Protein Total Protein Albumin Hiaxd-2-Wajdksppq Zwfyz-0-Mzxjvxrtn PEP Interpretation Triglycerides LDL Cholesterol Direct HDL Cholesterol Free T4 PTH Intact Urine WBC (Auto) Urine Creatinine Salicylates Acetaminophen Crossmatch 05/13/19 05/14/19 08:32 08:12 WBC RBC Hgb Hct MCV MCH MCHC RDW Plt Count Lymph % (Auto) [place] % (Auto) Eos % (Auto) Lymph # [place] # Eos # Seg Neutrophils % Seg Neuts % (Manual) Lymphocytes % (Manual) Monocytes % (Manual) Eosinophils % (Manual) Nucleated RBC % Seg Neutrophils # Seg Neutrophils # Man Lymphocytes # (Manual) Monocytes # (Manual) Eosinophils # (Manual) PT INR D-Dimer Heparin Anti-Xa Level POC ABG pH ABG pH POC ABG pCO2 POC ABG pO2 ABG pO2 ABG HCO3 ABG O2 Saturation ABG Base Excess ABG Hemoglobin Oxyhemoglobin Sodium Potassium Chloride Carbon Dioxide 17 L 18 L BUN Creatinine Glucose 73 L POC Glucose Lactic Acid Calcium Ionized Calcium Phosphorus Magnesium 1.60 L Iron TIBC Ferritin Total Bilirubin Direct Bilirubin AST ALT Alkaline Phosphatase Total Creatine Kinase CK-MB (CK-2) Troponin T C-Reactive Protein Serum Total Protein Total Protein Albumin 3.3 L Akxbv-6-Zgwvwhhfb Pnfct-7-Hblptfwtb PEP Interpretation Triglycerides LDL Cholesterol Direct HDL Cholesterol Free T4 PTH Intact Urine WBC (Auto) Urine Creatinine Salicylates Acetaminophen Crossmatch Allied health notes reviewed: nursing
[2019-05-15] MEDS: HYDROcodone/ACETAMINOPHEN 5-325 MG TAB PO PRN ×4 (00:37→21:08)
[2019-05-15] MEDS: MELATONIN 5 MG TAB PO PRN ×2 (00:43→21:09)
[2019-05-15] MEDS: GABAPENTIN 100 MG CAP PO SCH ×3 (05:27→21:08)
[2019-05-15] MEDS: PANTOPRAZOLE 40 MG TAB PO SCH ×2 (09:16→21:08)
[2019-05-15] MEDS: METOPROLOL SUCCINATE XL 50 MG TAB PO SCH (09:16)
--- NOTE | 2019-05-15 09:21 | Progress Note ---
Assessment and Plan Peripheral neuropathy. Neurology following. Patient will need EMG/MCV to rule out axonal versus demyelinating disease. Workup can be done as an outpatient. Bilateral lower extremity DVTs. Patient will be scheduled for placement of IVC filter. 3 months after discharge, the patient will need to be scheduled for IVC filter removal with repeat ultrasound at that time to evaluate the patient's bilateral lower extremity DVTs. - Acute hypoxic respiratory failure. Was intubated, but now extubated. Now on Room air. Continue BiPAP as clinically indicated. - Atrial fibrillation. Resolved. Continue Metoprolol. Cardiology following. No recurrence of AFib or VT noted for several weeks since resolution of multiple metabolic derangements and thus no plans for initiation of systemic AC or AICD implantation at this time. - Abnormal Lexiscan stress with ejection fraction of 45% S/p LHC this AM which showed normal coronaries, normal EF. - Acute blood loss anemia. Patient with GI bleed secondary to peptic ulcer disease. EGD completed per GI. Continue PRBCs as needed. - GI bleed/peptic ulcer disease. Continue PPI. Transfuse PRBCs as needed. - Sepsis/septic shock. Resolved. Continue to monitor off antibiotics - Ischemic hepatitis/shock liver. Resolved. Viral hepatitis panel negative. - Acute kidney injury. Resolved. Patient's last hemodialysis 04/20/19. Continue to monitor BMP. Avoid nephrotoxic agents. - Toxic metabolic encephalopathy. Resolved. - Swelling both upper ext L>R Doppler US : no DVT LUE - Hypokalemia. Replete potassium as needed. - Thrombocytopenia. Etiology likely secondary to sepsis. Resolved. - Rhabdomyolysis. CK normalized. Full code status Disposition. Awaiting for arrangements for SNF in [facility] Date of service: 05/14/19 Principal diagnosis: Septic Shock; Ac. hypoxemic resp failure; Renzo. PNA; Rhabdomyolysis; RUBEN Interval history: No interval change Not able to walk Objective - Constitutional Vitals: Vital Signs - 12hr 05/14/19 05/14/19 05/15/19 22:00 23:03 00:37 Temperature 98.4 F Pulse Rate 76 Respiratory 17 20 18 Rate Respiratory 18 Rate [ Generalized] Respiratory 18 Rate [Right Knee] Respiratory 18 Rate [Sacrum] Respiratory 19 Rate [Throat] Blood Pressure 119/78 Blood Pressure [Right] O2 Sat by Pulse 96 Oximetry 05/15/19 05/15/19 05/15/19 01:37 06:08 06:34 Temperature 97.2 F L Pulse Rate 73 Respiratory 17 19 18 Rate Respiratory Rate [ Generalized] Respiratory Rate [Right Knee] Respiratory Rate [Sacrum] Respiratory Rate [Throat] Blood Pressure Blood Pressure 110/69 [Right] O2 Sat by Pulse 96 Oximetry 05/15/19 07:13 Temperature Pulse Rate Respiratory 17 Rate Respiratory Rate [ Generalized] Respiratory Rate [Right Knee] Respiratory Rate [Sacrum] Respiratory Rate [Throat] Blood Pressure Blood Pressure [Right] O2 Sat by Pulse Oximetry General appearance: Present: no acute distress, well-nourished - EENT Eyes: PERRL, EOM intact ENT: hearing intact, clear oral mucosa Ears: bilateral: normal - Neck Neck: supple, normal ROM - Respiratory Respiratory effort: normal Respiratory: bilateral: CTA - Breasts Breasts: normal - Cardiovascular Heart rate: 78 Rhythm: regular Heart Sounds: Present: S1 & S2. Absent: gallop, rub Extremities: pulses intact, No edema, normal color, Full ROM - Gastrointestinal General gastrointestinal: Present: soft, non-tender, non-distended, normal bowel sounds - Genitourinary Male genitourinary: normal - Integumentary Integumentary: clear, warm, dry - Musculoskeletal Musculoskeletal: generalized weakness - Neurologic Neurologic: moves all extremities - Psychiatric Psychiatric: memory intact, appropriate mood/affect, intact judgment & insight - Allied health notes Allied health notes reviewed: nursing, case management - Labs CBC & Chem 7: 05/13/19 08:32 05/14/19 08:12 Labs: Abnormal lab results 05/14/19 Range/Units 08:12 Carbon Dioxide 18 L (22-30) mmol/L Glucose 73 L (75-100) mg/dL
--- NOTE | 2019-05-15 10:03 | Progress Note ---
Assessment and Plan Severe sepsis with shock, resolved. Acute hypoxemic respiratory failure, s/p mechanical ventilator support. Acute kidney injury secondary to ATN s/p HD- resolved. Leukocytosis-resolved Elevated serum transaminases/possible shock liver-- Resolved. Acute encephalopathy, toxic metabolic- resolved Thrombocytopenia- etiology, multifactorial- resolved RIJ non-occlusive thrombus Oropharyngeal dysphagia- resolved Acute blood loss anemia with hemorrhagic shock- resolved Critical illness myopathy Hypernatremia-resolved Continue all supportive care -prn ABG and CXR - Continue to monitor off antibiotics - prn analgesia - prn supportive blood transfusions to keep HgB > 7.0 - continue to avoid nephrotoxins - continue VTE prophylaxis - accuchecks with glycemic control per SSI for target BG of 140-180 mg/dl - avoid hypoglycemia - Continue PT/OT -Discharge planning CONDITION: IMPROVING PROGNOSIS: FAIR CODE STATUS: FULL Subjective Date of service: 05/15/19 Principal diagnosis: Septic Shock; Ac. hypoxemic resp failure; Renzo. PNA; Rh abdomyolysis; RUBEN Interval history: Patient is seen today for: Severe sepsis with shock; Acute hypoxemic respiratory failure; Aspiration pneumonia; Morbid obesity; Rhabdomyolysis; Acute kidney injury; Morbid obesity; Elevated serum transaminases/possible shock liver; Acute encephalopathy (Toxic/Met) Seen and examined at bedside; 24hour events reviewed; nursing and respiratory care staff consulted; no adverse overnight events reported to me; resting peacefully in bed; denies any chest pain, no shortness of breath. Just tired and weak, has bilateral foot drop. Continues to tolerate PT/OT. Off supplemental oxygen. Tolerating regular diet. Persistent foot drop bilaterally. On going fatigue Vitals, labs, medications, chart reviewed. Objective Vital Signs - 12hr 05/14/19 05/15/19 05/15/19 23:03 00:37 01:37 Temperature 98.4 F Pulse Rate 76 Respiratory 20 18 17 Rate Blood Pressure 119/78 Blood Pressure [Right] O2 Sat by Pulse 96 Oximetry 05/15/19 05/15/19 05/15/19 06:08 06:34 07:13 Temperature 97.2 F L Pulse Rate 73 Respiratory 19 18 17 Rate Blood Pressure Blood Pressure 110/69 [Right] O2 Sat by Pulse 96 Oximetry Constitutional: alert Eyes: non-icteric ENT: oropharynx moist, other Neck: supple, no lymphadenopathy, no JVD, other (large neck circumference) Effort: normal Ascultation: Bilateral: diminished breath sounds, rales, rhonchi (scant) Percussion: Bilateral: not dull Cardiovascular: regular rate and rhythm, other ( S1,S2) Gastrointestinal: normoactive bowel sounds, soft, non-tender, non-distended, other (obese) Integumentary: normal Extremities: no cyanosis, pink and warm, pulses normal, no ischemia or petechiae Neurologic: normal mental status, non-focal exam (grossly), pupils equal and round, CN II-XII normal, other (very weak, bilateral foot drop) Psychiatric: mood appropriate, affect normal CBC and BMP: 05/13/19 08:32 05/14/19 08:12 ABG, PT/INR, D-dimer: ABG POC ABG pH 7.401 (7.35-7.45) 04/07/19 12:57 ABG pH 7.388 pH Units (7.350-7.450) 04/06/19 05:20 POC ABG pCO2 41.5 (35-45) 04/07/19 12:57 ABG pCO2 38.5 mm Hg 04/06/19 05:20 POC ABG pO2 107 (80-105) H 04/07/19 12:57 ABG pO2 104.0 mm Hg (80.0-90.0) H 04/06/19 05:20 POC ABG HCO3 25.7 (22-26 mml/L) 04/07/19 12:57 POC ABG Total CO2 27 (23-27mmol/L) 04/07/19 12:57 POC ABG O2 Sat 98 04/07/19 12:57 ABG O2 Saturation 97.8 % (95.0-99.0) 04/06/19 05:20 PT/INR, D-dimer PT 14.8 Sec. (12.2-14.9) 05/10/19 06:42 INR 1.17 (0.87-1.13) H 05/10/19 06:42 D-Dimer 4845.98 ng/mlDDU (0-234) H 03/28/19 12:00 Abnormal lab findings: Abnormal Labs 03/16/19 03/16/19 03/16/19 15:32 16:03 16:05 WBC 27.0 H RBC 5.55 H Hgb 15.7 H Hct 47.1 H MCV MCH MCHC RDW Plt Count 75 L Lymph % (Auto) [place] % (Auto) Eos % (Auto) Lymph # [place] # Eos # Seg Neutrophils % Seg Neuts % (Manual) 85.0 H Lymphocytes % (Manual) 2.0 L Monocytes % (Manual) Eosinophils % (Manual) Nucleated RBC % Seg Neutrophils # Seg Neutrophils # Man 23.0 H Lymphocytes # (Manual) 0.5 L Monocytes # (Manual) Eosinophils # (Manual) PT INR D-Dimer Heparin Anti-Xa Level POC ABG pH ABG pH POC ABG pCO2 POC ABG pO2 ABG pO2 ABG HCO3 ABG O2 Saturation ABG Base Excess ABG Hemoglobin Oxyhemoglobin Sodium 127 L Potassium Chloride 87.8 L Carbon Dioxide 17 L BUN 49 H Creatinine 5.8 H Glucose 150 H POC Glucose 118 H Lactic Acid Calcium 6.6 L Ionized Calcium Phosphorus Magnesium 1.10 L Iron TIBC Ferritin Total Bilirubin Direct Bilirubin AST ALT Alkaline Phosphatase Total Creatine Kinase 61960 H CK-MB (CK-2) Troponin T C-Reactive Protein Serum Total Protein Total Protein Albumin Fkprb-5-Lusjsjpov Jcslk-5-Azzmwaysx PEP Interpretation Triglycerides LDL Cholesterol Direct HDL Cholesterol Free T4 PTH Intact Urine WBC (Auto) Urine Creatinine Salicylates Acetaminophen Crossmatch 03/16/19 03/16/19 03/16/19 16:59 17:05 17:05 WBC RBC Hgb Hct MCV MCH MCHC RDW Plt Count Lymph % (Auto) [place] % (Auto) Eos % (Auto) Lymph # [place] # Eos # Seg Neutrophils % Seg Neuts % (Manual) Lymphocytes % (Manual) Monocytes % (Manual) Eosinophils % (Manual) Nucleated RBC % Seg Neutrophils # Seg Neutrophils # Man Lymphocytes # (Manual) Monocytes # (Manual) Eosinophils # (Manual) PT INR D-Dimer Heparin Anti-Xa Level POC ABG pH 7.297 L ABG pH POC ABG pCO2 33.0 L POC ABG pO2 ABG pO2 ABG HCO3 ABG O2 Saturation ABG Base Excess ABG Hemoglobin Oxyhemoglobin Sodium Potassium Chloride Carbon Dioxide BUN Creatinine Glucose POC Glucose Lactic Acid Calcium Ionized Calcium Phosphorus Magnesium Iron TIBC Ferritin Total Bilirubin Direct Bilirubin AST ALT Alkaline Phosphatase Total Creatine Kinase 48008 H CK-MB (CK-2) 83.1 H Troponin T C-Reactive Protein Serum Total Protein Total Protein Albumin Ilkcy-7-Fkwjixish Hmdnh-0-Vnyzdkqxw PEP Interpretation Triglycerides LDL Cholesterol Direct HDL Cholesterol Free T4 0.72 L PTH Intact Urine WBC (Auto) Urine Creatinine Salicylates Acetaminophen Crossmatch 03/16/19 03/16/19 03/16/19 17:05 17:05 17:05 WBC RBC Hgb Hct MCV MCH MCHC RDW Plt Count Lymph % (Auto) [place] % (Auto) Eos % (Auto) Lymph # [place] # Eos # Seg Neutrophils % Seg Neuts % (Manual) Lymphocytes % (Manual) Monocytes % (Manual) Eosinophils % (Manual) Nucleated RBC % Seg Neutrophils # Seg Neutrophils # Man Lymphocytes # (Manual) Monocytes # (Manual) Eosinophils # (Manual) PT INR D-Dimer Heparin Anti-Xa Level POC ABG pH ABG pH POC ABG pCO2 POC ABG pO2 ABG pO2 ABG HCO3 ABG O2 Saturation ABG Base Excess ABG Hemoglobin Oxyhemoglobin Sodium Potassium Chloride Carbon Dioxide BUN Creatinine Glucose POC Glucose Lactic Acid 5.10 H* Calcium Ionized Calcium Phosphorus Magnesium Iron TIBC Ferritin Total Bilirubin Direct Bilirubin AST ALT Alkaline Phosphatase Total Creatine Kinase CK-MB (CK-2) Troponin T C-Reactive Protein Serum Total Protein Total Protein Albumin Ktgvc-6-Goturaudu Dcofr-3-Yqbtmpeee PEP Interpretation Triglycerides LDL Cholesterol Direct HDL Cholesterol Free T4 PTH Intact Urine WBC (Auto) Urine Creatinine Salicylates < 0.3 L Acetaminophen < 5.0 L Crossmatch 03/16/19 03/16/19 03/16/19 17:05 17:05 20:35 WBC RBC Hgb Hct MCV MCH MCHC RDW Plt Count Lymph % (Auto) [place] % (Auto) Eos % (Auto) Lymph # [place] # Eos # Seg Neutrophils % Seg Neuts % (Manual) Lymphocytes % (Manual) Monocytes % (Manual) Eosinophils % (Manual) Nucleated RBC % Seg Neutrophils # Seg Neutrophils # Man Lymphocytes # (Manual) Monocytes # (Manual) Eosinophils # (Manual) PT 15.9 H INR 1.30 H D-Dimer Heparin Anti-Xa Level POC ABG pH ABG pH POC ABG pCO2 POC ABG pO2 ABG pO2 ABG HCO3 ABG O2 Saturation ABG Base Excess ABG Hemoglobin Oxyhemoglobin Sodium Potassium Chloride Carbon Dioxide BUN Creatinine Glucose POC Glucose Lactic Acid 3.30 H* Calcium Ionized Calcium Phosphorus Magnesium Iron TIBC Ferritin Total Bilirubin 6.20 H Direct Bilirubin 5.9 H AST 800 H ALT 120 H Alkaline Phosphatase Total Creatine Kinase CK-MB (CK-2) Troponin T C-Reactive Protein Serum Total Protein Total Protein 4.4 L Albumin 2.4 L Zssqm-8-Vpeiwmlfk Uuody-3-Jcgvflhin PEP Interpretation Triglycerides LDL Cholesterol Direct HDL Cholesterol Free T4 PTH Intact Urine WBC (Auto) Urine Creatinine Salicylates Acetaminophen Crossmatch 03/16/19 03/16/19 03/16/19 21:45 22:32 Unknown WBC RBC Hgb Hct MCV MCH MCHC RDW Plt Count Lymph % (Auto) [place] % (Auto) Eos % (Auto) Lymph # [place] # Eos # Seg Neutrophils % Seg Neuts % (Manual) Lymphocytes % (Manual) Monocytes % (Manual) Eosinophils % (Manual) Nucleated RBC % Seg Neutrophils # Seg Neutrophils # Man Lymphocytes # (Manual) Monocytes # (Manual) Eosinophils # (Manual) PT INR D-Dimer Heparin Anti-Xa Level POC ABG pH ABG pH POC ABG pCO2 POC ABG pO2 ABG pO2 ABG HCO3 ABG O2 Saturation ABG Base Excess ABG Hemoglobin Oxyhemoglobin Sodium Potassium Chloride Carbon Dioxide BUN Creatinine Glucose POC Glucose Lactic Acid 3.30 H* 3.00 H* Calcium Ionized Calcium Phosphorus Magnesium Iron TIBC Ferritin Total Bilirubin Direct Bilirubin AST ALT Alkaline Phosphatase Total Creatine Kinase CK-MB (CK-2) Troponin T 0.047 H D C-Reactive Protein Serum Total Protein Total Protein Albumin Thiak-3-Miyhhetox Wefin-5-Qfhipcvem PEP Interpretation Triglycerides 395 H LDL Cholesterol Direct 10 L HDL Cholesterol 7 L Free T4 PTH Intact Urine WBC (Auto) Urine Creatinine Salicylates Acetaminophen Crossmatch 03/17/19 03/17/19 03/17/19 03:45 03:45 03:45 WBC RBC Hgb Hct MCV MCH MCHC RDW Plt Count Lymph % (Auto) [place] % (Auto) Eos % (Auto) Lymph # [place] # Eos # Seg Neutrophils % Seg Neuts % (Manual) Lymphocytes % (Manual) Monocytes % (Manual) Eosinophils % (Manual) Nucleated RBC % Seg Neutrophils # Seg Neutrophils # Man Lymphocytes # (Manual) Monocytes # (Manual) Eosinophils # (Manual) PT INR D-Dimer Heparin Anti-Xa Level POC ABG pH ABG pH POC ABG pCO2 POC ABG pO2 ABG pO2 ABG HCO3 ABG O2 Saturation ABG Base Excess ABG Hemoglobin Oxyhemoglobin Sodium 131 L Potassium Chloride 88.9 L Carbon Dioxide BUN 53 H Creatinine 7.1 H Glucose POC Glucose Lactic Acid 4.10 H* Calcium 5.4 L* D Ionized Calcium Phosphorus 7.30 H Magnesium 1.60 L Iron TIBC Ferritin Total Bilirubin 5.90 H Direct Bilirubin AST 801 H ALT 109 H Alkaline Phosphatase Total Creatine Kinase 84661 H 58001 H CK-MB (CK-2) 41.5 H Troponin T 0.054 H C-Reactive Protein Serum Total Protein Total Protein 4.5 L Albumin 2.0 L Dqglr-1-Bsndwztqr Rvfnt-0-Abpevpdqc PEP Interpretation Triglycerides LDL Cholesterol Direct HDL Cholesterol Free T4 PTH Intact Urine WBC (Auto) Urine Creatinine Salicylates Acetaminophen Crossmatch 03/17/19 03/17/19 03/17/19 05:47 07:16 07:16 WBC RBC Hgb Hct MCV MCH MCHC RDW Plt Count Lymph % (Auto) [place] % (Auto) Eos % (Auto) Lymph # [place] # Eos # Seg Neutrophils % Seg Neuts % (Manual) Lymphocytes % (Manual) Monocytes % (Manual) Eosinophils % (Manual) Nucleated RBC % Seg Neutrophils # Seg Neutrophils # Man Lymphocytes # (Manual) Monocytes # (Manual) Eosinophils # (Manual) PT INR D-Dimer Heparin Anti-Xa Level POC ABG pH 7.193 L ABG pH POC ABG pCO2 45.2 H POC ABG pO2 65 L ABG pO2 ABG HCO3 ABG O2 Saturation ABG Base Excess ABG Hemoglobin Oxyhemoglobin Sodium Potassium Chloride Carbon Dioxide BUN Creatinine Glucose POC Glucose Lactic Acid 5.50 H* Calcium Ionized Calcium Phosphorus Magnesium Iron TIBC Ferritin Total Bilirubin Direct Bilirubin AST ALT Alkaline Phosphatase Total Creatine Kinase 52182 H CK-MB (CK-2) 54.3 H Troponin T 0.058 H C-Reactive Protein Serum Total Protein Total Protein Albumin Cbabj-2-Hixbkjwil Kahbf-2-Vqzgpgdor PEP Interpretation Triglycerides LDL Cholesterol Direct HDL Cholesterol Free T4 PTH Intact Urine WBC (Auto) Urine Creatinine Salicylates Acetaminophen Crossmatch 03/17/19 03/17/19 03/17/19 11:52 12:51 13:01 WBC RBC Hgb Hct MCV MCH MCHC RDW Plt Count Lymph % (Auto) [place] % (Auto) Eos % (Auto) Lymph # [place] # Eos # Seg Neutrophils % Seg Neuts % (Manual) Lymphocytes % (Manual) Monocytes % (Manual) Eosinophils % (Manual) Nucleated RBC % Seg Neutrophils # Seg Neutrophils # Man Lymphocytes # (Manual) Monocytes # (Manual) Eosinophils # (Manual) PT INR D-Dimer Heparin Anti-Xa Level POC ABG pH 7.154 L ABG pH POC ABG pCO2 34.3 L POC ABG pO2 73 L ABG pO2 ABG HCO3 ABG O2 Saturation ABG Base Excess ABG Hemoglobin Oxyhemoglobin Sodium Potassium Chloride Carbon Dioxide BUN Creatinine Glucose POC Glucose 60 L Lactic Acid 8.20 H* Calcium Ionized Calcium Phosphorus Magnesium Iron TIBC Ferritin Total Bilirubin Direct Bilirubin AST ALT Alkaline Phosphatase Total Creatine Kinase CK-MB (CK-2) Troponin T C-Reactive Protein Serum Total Protein Total Protein Albumin Mxlqf-9-Lzmmfhvvj Rlvwk-8-Uvqvekrzw PEP Interpretation Triglycerides LDL Cholesterol Direct HDL Cholesterol Free T4 PTH Intact Urine WBC (Auto) Urine Creatinine Salicylates Acetaminophen Crossmatch 03/17/19 03/17/19 03/17/19 14:37 14:37 14:37 WBC 29.3 H RBC Hgb Hct MCV MCH MCHC RDW 15.8 H Plt Count 45 L Lymph % (Auto) [place] % (Auto) Eos % (Auto) Lymph # [place] # Eos # Seg Neutrophils % Seg Neuts % (Manual) 81.0 H Lymphocytes % (Manual) 1.0 L Monocytes % (Manual) 15.0 H Eosinophils % (Manual) Nucleated RBC % Seg Neutrophils # Seg Neutrophils # Man 23.7 H Lymphocytes # (Manual) 0.3 L Monocytes # (Manual) 4.4 H Eosinophils # (Manual) PT INR D-Dimer Heparin Anti-Xa Level POC ABG pH ABG pH POC ABG pCO2 POC ABG pO2 ABG pO2 ABG HCO3 ABG O2 Saturation ABG Base Excess ABG Hemoglobin Oxyhemoglobin Sodium Potassium Chloride Carbon Dioxide BUN Creatinine Glucose POC Glucose Lactic Acid 4.90 H* Calcium Ionized Calcium Phosphorus Magnesium Iron TIBC Ferritin Total Bilirubin Direct Bilirubin AST ALT Alkaline Phosphatase Total Creatine Kinase CK-MB (CK-2) Troponin T C-Reactive Protein 24.90 H Serum Total Protein Total Protein Albumin Vfzuu-1-Einxlhbds Plbax-6-Wtddzysxz PEP Interpretation Triglycerides LDL Cholesterol Direct HDL Cholesterol Free T4 PTH Intact Urine WBC (Auto) Urine Creatinine Salicylates Acetaminophen Crossmatch 03/17/19 03/17/19 03/17/19 16:05 16:05 17:02 WBC RBC Hgb Hct MCV MCH MCHC RDW Plt Count Lymph % (Auto) [place] % (Auto) Eos % (Auto) Lymph # [place] # Eos # Seg Neutrophils % Seg Neuts % (Manual) Lymphocytes % (Manual) Monocytes % (Manual) Eosinophils % (Manual) Nucleated RBC % Seg Neutrophils # Seg Neutrophils # Man Lymphocytes # (Manual) Monocytes # (Manual) Eosinophils # (Manual) PT INR D-Dimer Heparin Anti-Xa Level POC ABG pH 7.183 L ABG pH POC ABG pCO2 POC ABG pO2 65 L ABG pO2 ABG HCO3 ABG O2 Saturation ABG Base Excess ABG Hemoglobin Oxyhemoglobin Sodium Potassium Chloride Carbon Dioxide BUN Creatinine Glucose POC Glucose Lactic Acid Calcium Ionized Calcium Phosphorus Magnesium Iron TIBC Ferritin Total Bilirubin Direct Bilirubin AST ALT Alkaline Phosphatase Total Creatine Kinase CK-MB (CK-2) Troponin T C-Reactive Protein Serum Total Protein Total Protein Albumin Erpfj-9-Kiqqmlbna Hzzcs-6-Aiuhbuqtd PEP Interpretation Triglycerides LDL Cholesterol Direct HDL Cholesterol Free T4 PTH Intact Urine WBC (Auto) 30.0 H Urine Creatinine 106.6 H Salicylates Acetaminophen Crossmatch 03/18/19 03/18/19 03/18/19 05:12 05:16 05:53 WBC RBC Hgb Hct MCV MCH MCHC RDW Plt Count Lymph % (Auto) [place] % (Auto) Eos % (Auto) Lymph # [place] # Eos # Seg Neutrophils % Seg Neuts % (Manual) Lymphocytes % (Manual) Monocytes % (Manual) Eosinophils % (Manual) Nucleated RBC % Seg Neutrophils # Seg Neutrophils # Man Lymphocytes # (Manual) Monocytes # (Manual) Eosinophils # (Manual) PT INR D-Dimer Heparin Anti-Xa Level POC ABG pH 7.257 L ABG pH POC ABG pCO2 31.6 L POC ABG pO2 69 L ABG pO2 ABG HCO3 ABG O2 Saturation ABG Base Excess ABG Hemoglobin Oxyhemoglobin Sodium Potassium Chloride Carbon Dioxide BUN Creatinine Glucose POC Glucose 141 H Lactic Acid 5.00 H* Calcium Ionized Calcium Phosphorus Magnesium Iron TIBC Ferritin Total Bilirubin Direct Bilirubin AST ALT Alkaline Phosphatase Total Creatine Kinase CK-MB (CK-2) Troponin T C-Reactive Protein Serum Total Protein Total Protein Albumin Chiyi-0-Imwscyqed Rnuzk-6-Fbbplvjdp PEP Interpretation Triglycerides LDL Cholesterol Direct HDL Cholesterol Free T4 PTH Intact Urine WBC (Auto) Urine Creatinine Salicylates Acetaminophen Crossmatch 03/18/19 03/18/19 03/18/19 06:57 08:40 08:40 WBC 31.7 H RBC Hgb Hct MCV MCH MCHC RDW 15.5 H Plt Count 35 L Lymph % (Auto) [place] % (Auto) Eos % (Auto) Lymph # [place] # Eos # Seg Neutrophils % Seg Neuts % (Manual) Lymphocytes % (Manual) Monocytes % (Manual) Eosinophils % (Manual) Nucleated RBC % Seg Neutrophils # Seg Neutrophils # Man Lymphocytes # (Manual) Monocytes # (Manual) Eosinophils # (Manual) PT INR D-Dimer Heparin Anti-Xa Level POC ABG pH ABG pH POC ABG pCO2 POC ABG pO2 ABG pO2 ABG HCO3 ABG O2 Saturation ABG Base Excess ABG Hemoglobin Oxyhemoglobin Sodium 132 L Potassium 5.5 H D Chloride 88.5 L Carbon Dioxide 18 L BUN 71 H Creatinine 8.1 H Glucose 205 H POC Glucose Lactic Acid 5.00 H* Calcium 4.1 L* D Ionized Calcium Phosphorus Magnesium 2.40 H Iron TIBC Ferritin Total Bilirubin 7.50 H Direct Bilirubin AST 1088 H ALT 159 H Alkaline Phosphatase 190 H Total Creatine Kinase 183445 H CK-MB (CK-2) Troponin T C-Reactive Protein Serum Total Protein Total Protein 4.7 L Albumin 1.8 L Mtkbc-1-Hhcuwoixx Zbblu-8-Vmvcuopsn PEP Interpretation Triglycerides LDL Cholesterol Direct HDL Cholesterol Free T4 PTH Intact Urine WBC (Auto) Urine Creatinine Salicylates Acetaminophen Crossmatch 03/18/19 03/18/19 03/18/19 12:33 12:50 13:19 WBC RBC Hgb Hct MCV MCH MCHC RDW Plt Count Lymph % (Auto) [place] % (Auto) Eos % (Auto) Lymph # [place] # Eos # Seg Neutrophils % Seg Neuts % (Manual) Lymphocytes % (Manual) Monocytes % (Manual) Eosinophils % (Manual) Nucleated RBC % Seg Neutrophils # Seg Neutrophils # Man Lymphocytes # (Manual) Monocytes # (Manual) Eosinophils # (Manual) PT INR D-Dimer Heparin Anti-Xa Level POC ABG pH 7.282 L ABG pH POC ABG pCO2 POC ABG pO2 67 L ABG pO2 ABG HCO3 ABG O2 Saturation ABG Base Excess ABG Hemoglobin Oxyhemoglobin Sodium Potassium Chloride Carbon Dioxide BUN Creatinine Glucose POC Glucose 129 H Lactic Acid 3.30 H* Calcium Ionized Calcium Phosphorus Magnesium Iron TIBC Ferritin Total Bilirubin Direct Bilirubin AST ALT Alkaline Phosphatase Total Creatine Kinase CK-MB (CK-2) Troponin T C-Reactive Protein Serum Total Protein Total Protein Albumin Uvkpg-1-Xifzpczzj Ucafk-3-Pdqdazndn PEP Interpretation Triglycerides LDL Cholesterol Direct HDL Cholesterol Free T4 PTH Intact Urine WBC (Auto) Urine Creatinine Salicylates Acetaminophen Crossmatch 03/18/19 03/18/19 03/18/19 13:19 16:50 18:11 WBC RBC Hgb Hct MCV MCH MCHC RDW Plt Count Lymph % (Auto) [place] % (Auto) Eos % (Auto) Lymph # [place] # Eos # Seg Neutrophils % Seg Neuts % (Manual) Lymphocytes % (Manual) Monocytes % (Manual) Eosinophils % (Manual) Nucleated RBC % Seg Neutrophils # Seg Neutrophils # Man Lymphocytes # (Manual) Monocytes # (Manual) Eosinophils # (Manual) PT INR D-Dimer Heparin Anti-Xa Level POC ABG pH ABG pH POC ABG pCO2 POC ABG pO2 59 L ABG pO2 ABG HCO3 ABG O2 Saturation ABG Base Excess ABG Hemoglobin Oxyhemoglobin Sodium Potassium Chloride Carbon Dioxide BUN Creatinine Glucose POC Glucose 151 H Lactic Acid Calcium 4.2 L* Ionized Calcium Phosphorus Magnesium Iron TIBC Ferritin Total Bilirubin Direct Bilirubin AST ALT Alkaline Phosphatase Total Creatine Kinase 876284 H CK-MB (CK-2) Troponin T C-Reactive Protein Serum Total Protein Total Protein Albumin Pspin-7-Yhdmbkhnk Pqaqe-4-Caloyrxso PEP Interpretation Triglycerides LDL Cholesterol Direct HDL Cholesterol Free T4 PTH Intact Urine WBC (Auto) Urine Creatinine Salicylates Acetaminophen Crossmatch 03/18/19 03/18/19 03/19/19 18:20 23:39 01:42 WBC RBC Hgb Hct MCV MCH MCHC RDW Plt Count Lymph % (Auto) [place] % (Auto) Eos % (Auto) Lymph # [place] # Eos # Seg Neutrophils % Seg Neuts % (Manual) Lymphocytes % (Manual) Monocytes % (Manual) Eosinophils % (Manual) Nucleated RBC % Seg Neutrophils # Seg Neutrophils # Man Lymphocytes # (Manual) Monocytes # (Manual) Eosinophils # (Manual) PT INR D-Dimer Heparin Anti-Xa Level POC ABG pH 7.345 L ABG pH 7.285 L POC ABG pCO2 POC ABG pO2 59 L ABG pO2 44.0 L ABG HCO3 ABG O2 Saturation 70.9 L ABG Base Excess -5.7 L ABG Hemoglobin 11.9 L Oxyhemoglobin 69.6 L Sodium Potassium Chloride Carbon Dioxide BUN Creatinine Glucose POC Glucose 152 H Lactic Acid Calcium Ionized Calcium Phosphorus Magnesium Iron TIBC Ferritin Total Bilirubin Direct Bilirubin AST ALT Alkaline Phosphatase Total Creatine Kinase CK-MB (CK-2) Troponin T C-Reactive Protein Serum Total Protein Total Protein Albumin Lsylz-8-Frpruyxha Zudjx-4-Raofqzocd PEP Interpretation Triglycerides LDL Cholesterol Direct HDL Cholesterol Free T4 PTH Intact Urine WBC (Auto) Urine Creatinine Salicylates Acetaminophen Crossmatch 03/19/19 03/19/19 03/19/19 04:00 04:00 05:35 WBC 36.5 H RBC Hgb Hct MCV MCH MCHC RDW 15.8 H Plt Count 35 L Lymph % (Auto) [place] % (Auto) Eos % (Auto) Lymph # [place] # Eos # Seg Neutrophils % Seg Neuts % (Manual) Lymphocytes % (Manual) Monocytes % (Manual) Eosinophils % (Manual) Nucleated RBC % Seg Neutrophils # Seg Neutrophils # Man Lymphocytes # (Manual) Monocytes # (Manual) Eosinophils # (Manual) PT INR D-Dimer Heparin Anti-Xa Level POC ABG pH ABG pH 7.265 L POC ABG pCO2 POC ABG pO2 ABG pO2 35.4 L* ABG HCO3 ABG O2 Saturation 54.4 L ABG Base Excess -6.7 L ABG Hemoglobin 12.9 L Oxyhemoglobin 53.4 L Sodium 132 L Potassium 5.7 H Chloride 89.8 L Carbon Dioxide 19 L BUN 62 H Creatinine 6.4 H Glucose 151 H POC Glucose Lactic Acid Calcium 5.2 L* D Ionized Calcium Phosphorus Magnesium Iron TIBC Ferritin Total Bilirubin 7.80 H Direct Bilirubin AST 682 H ALT 130 H Alkaline Phosphatase 167 H Total Creatine Kinase CK-MB (CK-2) Troponin T C-Reactive Protein Serum Total Protein Total Protein 4.8 L Albumin 2.3 L Vldfh-7-Rlizbjmmy Sqngk-8-Avfnxvhgt PEP Interpretation Triglycerides LDL Cholesterol Direct HDL Cholesterol Free T4 PTH Intact Urine WBC (Auto) Urine Creatinine Salicylates Acetaminophen Crossmatch 03/19/19 03/19/19 03/19/19 05:49 09:16 09:50 WBC RBC Hgb Hct MCV MCH MCHC RDW Plt Count Lymph % (Auto) [place] % (Auto) Eos % (Auto) Lymph # [place] # Eos # Seg Neutrophils % Seg Neuts % (Manual) Lymphocytes % (Manual) Monocytes % (Manual) Eosinophils % (Manual) Nucleated RBC % Seg Neutrophils # Seg Neutrophils # Man Lymphocytes # (Manual) Monocytes # (Manual) Eosinophils # (Manual) PT INR D-Dimer Heparin Anti-Xa Level POC ABG pH 7.222 L ABG pH POC ABG pCO2 56.6 H POC ABG pO2 ABG pO2 ABG HCO3 ABG O2 Saturation ABG Base Excess ABG Hemoglobin Oxyhemoglobin Sodium Potassium Chloride Carbon Dioxide BUN Creatinine Glucose POC Glucose 154 H Lactic Acid 2.70 H* Calcium Ionized Calcium Phosphorus Magnesium Iron TIBC Ferritin Total Bilirubin Direct Bilirubin AST ALT Alkaline Phosphatase Total Creatine Kinase CK-MB (CK-2) Troponin T C-Reactive Protein Serum Total Protein Total Protein Albumin Sspaq-5-Dzyksjfat Gjkak-7-Xzwlqwybm PEP Interpretation Triglycerides LDL Cholesterol Direct HDL Cholesterol Free T4 PTH Intact Urine WBC (Auto) Urine Creatinine Salicylates Acetaminophen Crossmatch 03/19/19 03/19/19 03/19/19 09:50 11:28 17:58 WBC RBC Hgb Hct MCV MCH MCHC RDW Plt Count Lymph % (Auto) [place] % (Auto) Eos % (Auto) Lymph # [place] # Eos # Seg Neutrophils % Seg Neuts % (Manual) Lymphocytes % (Manual) Monocytes % (Manual) Eosinophils % (Manual) Nucleated RBC % Seg Neutrophils # Seg Neutrophils # Man Lymphocytes # (Manual) Monocytes # (Manual) Eosinophils # (Manual) PT INR D-Dimer Heparin Anti-Xa Level POC ABG pH 7.250 L ABG pH POC ABG pCO2 52.6 H POC ABG pO2 ABG pO2 ABG HCO3 ABG O2 Saturation ABG Base Excess ABG Hemoglobin Oxyhemoglobin Sodium Potassium Chloride Carbon Dioxide BUN Creatinine Glucose POC Glucose 160 H Lactic Acid Calcium Ionized Calcium Phosphorus Magnesium Iron TIBC Ferritin Total Bilirubin Direct Bilirubin AST ALT Alkaline Phosphatase Total Creatine Kinase 17006 H CK-MB (CK-2) Troponin T C-Reactive Protein Serum Total Protein Total Protein Albumin Yrnpi-8-Sjfgolefr Kfasz-6-Nbnadtbyv PEP Interpretation Triglycerides LDL Cholesterol Direct HDL Cholesterol Free T4 PTH Intact Urine WBC (Auto) Urine Creatinine Salicylates Acetaminophen Crossmatch 03/19/19 03/19/19 03/20/19 19:48 21:03 02:16 WBC RBC Hgb Hct MCV MCH MCHC RDW Plt Count Lymph % (Auto) [place] % (Auto) Eos % (Auto) Lymph # [place] # Eos # Seg Neutrophils % Seg Neuts % (Manual) Lymphocytes % (Manual) Monocytes % (Manual) Eosinophils % (Manual) Nucleated RBC % Seg Neutrophils # Seg Neutrophils # Man Lymphocytes # (Manual) Monocytes # (Manual) Eosinophils # (Manual) PT INR D-Dimer Heparin Anti-Xa Level POC ABG pH 7.279 L ABG pH POC ABG pCO2 50.3 H POC ABG pO2 129 H ABG pO2 ABG HCO3 ABG O2 Saturation ABG Base Excess ABG Hemoglobin Oxyhemoglobin Sodium Potassium Chloride Carbon Dioxide BUN Creatinine Glucose POC Glucose 119 H 119 H Lactic Acid Calcium Ionized Calcium Phosphorus Magnesium Iron TIBC Ferritin Total Bilirubin Direct Bilirubin AST ALT Alkaline Phosphatase Total Creatine Kinase CK-MB (CK-2) Troponin T C-Reactive Protein Serum Total Protein Total Protein Albumin Zyskd-0-Petbfakwt Qjuaf-3-Dinbbukbd PEP Interpretation Triglycerides LDL Cholesterol Direct HDL Cholesterol Free T4 PTH Intact Urine WBC (Auto) Urine Creatinine Salicylates Acetaminophen Crossmatch 03/20/19 03/20/19 03/20/19 04:23 05:05 09:30 WBC 36.3 H RBC Hgb Hct MCV MCH MCHC RDW 15.5 H Plt Count 29 L Lymph % (Auto) [place] % (Auto) Eos % (Auto) Lymph # [place] # Eos # Seg Neutrophils % Seg Neuts % (Manual) Lymphocytes % (Manual) Monocytes % (Manual) Eosinophils % (Manual) Nucleated RBC % Seg Neutrophils # Seg Neutrophils # Man Lymphocytes # (Manual) Monocytes # (Manual) Eosinophils # (Manual) PT INR D-Dimer Heparin Anti-Xa Level POC ABG pH ABG pH POC ABG pCO2 POC ABG pO2 280 H ABG pO2 ABG HCO3 ABG O2 Saturation ABG Base Excess ABG Hemoglobin Oxyhemoglobin Sodium Potassium Chloride Carbon Dioxide BUN Creatinine Glucose POC Glucose 115 H Lactic Acid Calcium Ionized Calcium Phosphorus Magnesium Iron TIBC Ferritin Total Bilirubin Direct Bilirubin AST ALT Alkaline Phosphatase Total Creatine Kinase CK-MB (CK-2) Troponin T C-Reactive Protein Serum Total Protein Total Protein Albumin Cgjff-6-Kufzuzjuu Qitjd-5-Fgshnejfg PEP Interpretation Triglycerides LDL Cholesterol Direct HDL Cholesterol Free T4 PTH Intact Urine WBC (Auto) Urine Creatinine Salicylates Acetaminophen Crossmatch 03/20/19 03/20/19 03/20/19 09:30 09:30 11:34 WBC RBC Hgb Hct MCV MCH MCHC RDW Plt Count Lymph % (Auto) [place] % (Auto) Eos % (Auto) Lymph # [place] # Eos # Seg Neutrophils % Seg Neuts % (Manual) Lymphocytes % (Manual) Monocytes % (Manual) Eosinophils % (Manual) Nucleated RBC % Seg Neutrophils # Seg Neutrophils # Man Lymphocytes # (Manual) Monocytes # (Manual) Eosinophils # (Manual) PT INR D-Dimer Heparin Anti-Xa Level POC ABG pH ABG pH POC ABG pCO2 POC ABG pO2 ABG pO2 ABG HCO3 ABG O2 Saturation ABG Base Excess ABG Hemoglobin Oxyhemoglobin Sodium 131 L Potassium Chloride 92.3 L Carbon Dioxide 20 L BUN 68 H Creatinine 6.1 H Glucose 164 H POC Glucose 141 H Lactic Acid Calcium 5.3 L* Ionized Calcium Phosphorus Magnesium Iron TIBC Ferritin Total Bilirubin 9.50 H Direct Bilirubin AST 381 H ALT 116 H Alkaline Phosphatase 255 H Total Creatine Kinase 92768 H CK-MB (CK-2) Troponin T C-Reactive Protein Serum Total Protein Total Protein 5.1 L Albumin 2.3 L Hdbzc-5-Fdzfkgfxb Kwxqm-0-Mivmygdir PEP Interpretation Triglycerides LDL Cholesterol Direct HDL Cholesterol Free T4 PTH Intact Urine WBC (Auto) Urine Creatinine Salicylates Acetaminophen Crossmatch 03/20/19 03/20/19 03/20/19 14:41 14:45 18:50 WBC RBC Hgb Hct MCV MCH MCHC RDW Plt Count Lymph % (Auto) [place] % (Auto) Eos % (Auto) Lymph # [place] # Eos # Seg Neutrophils % Seg Neuts % (Manual) Lymphocytes % (Manual) Monocytes % (Manual) Eosinophils % (Manual) Nucleated RBC % Seg Neutrophils # Seg Neutrophils # Man Lymphocytes # (Manual) Monocytes # (Manual) Eosinophils # (Manual) PT INR D-Dimer Heparin Anti-Xa Level POC ABG pH ABG pH POC ABG pCO2 POC ABG pO2 ABG pO2 ABG HCO3 ABG O2 Saturation ABG Base Excess ABG Hemoglobin Oxyhemoglobin Sodium Potassium Chloride Carbon Dioxide BUN Creatinine Glucose POC Glucose 117 H Lactic Acid 2.90 H* Calcium Ionized Calcium Phosphorus Magnesium Iron TIBC Ferritin Total Bilirubin Direct Bilirubin AST ALT Alkaline Phosphatase Total Creatine Kinase CK-MB (CK-2) Troponin T C-Reactive Protein 13.30 H Serum Total Protein Total Protein Albumin Nizet-7-Yqsfduytp Xialp-2-Ippumeknx PEP Interpretation Triglycerides LDL Cholesterol Direct HDL Cholesterol Free T4 PTH Intact Urine WBC (Auto) Urine Creatinine Salicylates Acetaminophen Crossmatch 03/20/19 03/21/19 03/21/19 21:55 04:26 04:26 WBC 37.8 H RBC Hgb Hct MCV MCH MCHC RDW 15.4 H Plt Count 36 L Lymph % (Auto) [place] % (Auto) Eos % (Auto) Lymph # [place] # Eos # Seg Neutrophils % Seg Neuts % (Manual) 93.0 H Lymphocytes % (Manual) 3.0 L Monocytes % (Manual) Eosinophils % (Manual) Nucleated RBC % 1.0 H Seg Neutrophils # 34.6 H Seg Neutrophils # Man 35.2 H Lymphocytes # (Manual) 1.1 L Monocytes # (Manual) Eosinophils # (Manual) PT INR D-Dimer Heparin Anti-Xa Level POC ABG pH ABG pH POC ABG pCO2 POC ABG pO2 ABG pO2 ABG HCO3 ABG O2 Saturation ABG Base Excess ABG Hemoglobin Oxyhemoglobin Sodium 131 L Potassium Chloride 90.7 L Carbon Dioxide 21 L BUN 69 H Creatinine 5.7 H Glucose 170 H POC Glucose 128 H Lactic Acid Calcium 6.1 L D Ionized Calcium Phosphorus Magnesium Iron TIBC Ferritin Total Bilirubin 9.50 H Direct Bilirubin AST 308 H ALT 124 H Alkaline Phosphatase 327 H Total Creatine Kinase 86668 H CK-MB (CK-2) Troponin T C-Reactive Protein Serum Total Protein Total Protein 5.7 L Albumin 2.6 L Gfzul-1-Elqvvrmsi Xrytf-0-Ytzhfqdco PEP Interpretation Triglycerides LDL Cholesterol Direct HDL Cholesterol Free T4 PTH Intact Urine WBC (Auto) Urine Creatinine Salicylates Acetaminophen Crossmatch 03/21/19 03/21/19 03/21/19 05:17 05:39 08:29 WBC RBC Hgb Hct MCV MCH MCHC RDW Plt Count Lymph % (Auto) [place] % (Auto) Eos % (Auto) Lymph # [place] # Eos # Seg Neutrophils % Seg Neuts % (Manual) Lymphocytes % (Manual) Monocytes % (Manual) Eosinophils % (Manual) Nucleated RBC % Seg Neutrophils # Seg Neutrophils # Man Lymphocytes # (Manual) Monocytes # (Manual) Eosinophils # (Manual) PT INR D-Dimer Heparin Anti-Xa Level POC ABG pH ABG pH POC ABG pCO2 POC ABG pO2 209 H ABG pO2 ABG HCO3 ABG O2 Saturation ABG Base Excess ABG Hemoglobin Oxyhemoglobin Sodium Potassium Chloride Carbon Dioxide BUN Creatinine Glucose POC Glucose 145 H Lactic Acid Calcium Ionized Calcium Phosphorus Magnesium Iron TIBC Ferritin Total Bilirubin Direct Bilirubin AST ALT Alkaline Phosphatase Total Creatine Kinase 22775 H CK-MB (CK-2) Troponin T C-Reactive Protein Serum Total Protein Total Protein Albumin Ylchg-3-Dlwnbqztl Fypol-1-Xbqrrnjkb PEP Interpretation Triglycerides LDL Cholesterol Direct HDL Cholesterol Free T4 PTH Intact Urine WBC (Auto) Urine Creatinine Salicylates Acetaminophen Crossmatch 03/21/19 03/21/19 03/21/19 08:29 11:43 12:00 WBC RBC Hgb Hct MCV MCH MCHC RDW Plt Count Lymph % (Auto) [place] % (Auto) Eos % (Auto) Lymph # [place] # Eos # Seg Neutrophils % Seg Neuts % (Manual) Lymphocytes % (Manual) Monocytes % (Manual) Eosinophils % (Manual) Nucleated RBC % Seg Neutrophils # Seg Neutrophils # Man Lymphocytes # (Manual) Monocytes # (Manual) Eosinophils # (Manual) PT INR D-Dimer Heparin Anti-Xa Level POC ABG pH ABG pH POC ABG pCO2 POC ABG pO2 ABG pO2 ABG HCO3 ABG O2 Saturation ABG Base Excess ABG Hemoglobin Oxyhemoglobin Sodium Potassium Chloride Carbon Dioxide BUN Creatinine Glucose POC Glucose 123 H Lactic Acid 2.60 H* 2.20 H* Calcium Ionized Calcium Phosphorus Magnesium Iron TIBC Ferritin Total Bilirubin Direct Bilirubin AST ALT Alkaline Phosphatase Total Creatine Kinase CK-MB (CK-2) Troponin T C-Reactive Protein Serum Total Protein Total Protein Albumin Bncoc-5-Rdczpvqob Ruzrx-2-Suwxvambm PEP Interpretation Triglycerides LDL Cholesterol Direct HDL Cholesterol Free T4 PTH Intact Urine WBC (Auto) Urine Creatinine Salicylates Acetaminophen Crossmatch 03/21/19 03/21/19 03/21/19 14:11 18:28 19:32 WBC RBC Hgb Hct MCV MCH MCHC RDW Plt Count Lymph % (Auto) [place] % (Auto) Eos % (Auto) Lymph # [place] # Eos # Seg Neutrophils % Seg Neuts % (Manual) Lymphocytes % (Manual) Monocytes % (Manual) Eosinophils % (Manual) Nucleated RBC % Seg Neutrophils # Seg Neutrophils # Man Lymphocytes # (Manual) Monocytes # (Manual) Eosinophils # (Manual) PT INR D-Dimer Heparin Anti-Xa Level POC ABG pH 7.293 L ABG pH POC ABG pCO2 POC ABG pO2 ABG pO2 ABG HCO3 ABG O2 Saturation ABG Base Excess ABG Hemoglobin Oxyhemoglobin Sodium Potassium Chloride Carbon Dioxide BUN Creatinine Glucose POC Glucose 153 H Lactic Acid 2.10 H* Calcium Ionized Calcium Phosphorus Magnesium Iron TIBC Ferritin Total Bilirubin Direct Bilirubin AST ALT Alkaline Phosphatase Total Creatine Kinase CK-MB (CK-2) Troponin T C-Reactive Protein Serum Total Protein Total Protein Albumin Epsov-4-Zedzvghmy Yjxgd-2-Bpgzmwovz PEP Interpretation Triglycerides LDL Cholesterol Direct HDL Cholesterol Free T4 PTH Intact Urine WBC (Auto) Urine Creatinine Salicylates Acetaminophen Crossmatch 03/21/19 03/22/19 03/22/19 23:38 05:08 05:51 WBC RBC Hgb Hct MCV MCH MCHC RDW Plt Count Lymph % (Auto) [place] % (Auto) Eos % (Auto) Lymph # [place] # Eos # Seg Neutrophils % Seg Neuts % (Manual) Lymphocytes % (Manual) Monocytes % (Manual) Eosinophils % (Manual) Nucleated RBC % Seg Neutrophils # Seg Neutrophils # Man Lymphocytes # (Manual) Monocytes # (Manual) Eosinophils # (Manual) PT INR D-Dimer Heparin Anti-Xa Level POC ABG pH 7.283 L ABG pH POC ABG pCO2 POC ABG pO2 53 L ABG pO2 ABG HCO3 ABG O2 Saturation ABG Base Excess ABG Hemoglobin Oxyhemoglobin Sodium Potassium Chloride Carbon Dioxide BUN Creatinine Glucose POC Glucose 149 H 131 H Lactic Acid Calcium Ionized Calcium Phosphorus Magnesium Iron TIBC Ferritin Total Bilirubin Direct Bilirubin AST ALT Alkaline Phosphatase Total Creatine Kinase CK-MB (CK-2) Troponin T C-Reactive Protein Serum Total Protein Total Protein Albumin Gwoff-6-Nqsgsnlnf Uacgt-8-Dntiqtdll PEP Interpretation Triglycerides LDL Cholesterol Direct HDL Cholesterol Free T4 PTH Intact Urine WBC (Auto) Urine Creatinine Salicylates Acetaminophen Crossmatch 03/22/19 03/22/19 03/22/19 08:00 08:00 18:19 WBC 36.7 H RBC Hgb 11.0 L Hct 33.5 L MCV MCH MCHC RDW 15.5 H Plt Count 43 L Lymph % (Auto) [place] % (Auto) Eos % (Auto) Lymph # [place] # Eos # Seg Neutrophils % Seg Neuts % (Manual) 87.0 H Lymphocytes % (Manual) 7.0 L Monocytes % (Manual) Eosinophils % (Manual) Nucleated RBC % Seg Neutrophils # Seg Neutrophils # Man 31.9 H Lymphocytes # (Manual) Monocytes # (Manual) Eosinophils # (Manual) PT INR D-Dimer Heparin Anti-Xa Level POC ABG pH ABG pH POC ABG pCO2 46.4 H POC ABG pO2 108 H ABG pO2 ABG HCO3 ABG O2 Saturation ABG Base Excess ABG Hemoglobin Oxyhemoglobin Sodium 132 L Potassium 5.6 H Chloride 89.6 L Carbon Dioxide 20 L BUN 101 H Creatinine 7.4 H Glucose 124 H POC Glucose Lactic Acid Calcium 5.2 L* Ionized Calcium Phosphorus Magnesium Iron TIBC Ferritin Total Bilirubin 2.80 H Direct Bilirubin AST 119 H ALT 86 H Alkaline Phosphatase 245 H Total Creatine Kinase CK-MB (CK-2) Troponin T C-Reactive Protein Serum Total Protein Total Protein 5.6 L Albumin 2.5 L Wowrx-2-Xpvnqdpbn Gpgtc-8-Hqkhkglmp PEP Interpretation Triglycerides LDL Cholesterol Direct HDL Cholesterol Free T4 PTH Intact Urine WBC (Auto) Urine Creatinine Salicylates Acetaminophen Crossmatch 03/22/19 03/23/19 03/23/19 20:37 04:49 05:28 WBC 35.9 H RBC Hgb 10.8 L Hct 33.2 L MCV MCH MCHC RDW 15.5 H Plt Count 49 L Lymph % (Auto) [place] % (Auto) Eos % (Auto) Lymph # [place] # Eos # Seg Neutrophils % Seg Neuts % (Manual) 81.0 H Lymphocytes % (Manual) 3.5 L Monocytes % (Manual) Eosinophils % (Manual) Nucleated RBC % Seg Neutrophils # Seg Neutrophils # Man 29.1 H Lymphocytes # (Manual) Monocytes # (Manual) 1.4 H Eosinophils # (Manual) PT INR D-Dimer Heparin Anti-Xa Level POC ABG pH 7.296 L ABG pH POC ABG pCO2 46.2 H POC ABG pO2 ABG pO2 ABG HCO3 ABG O2 Saturation ABG Base Excess ABG Hemoglobin Oxyhemoglobin Sodium 129 L Potassium 5.2 H Chloride 91.1 L Carbon Dioxide BUN 91 H Creatinine 6.6 H Glucose 190 H POC Glucose Lactic Acid Calcium 5.3 L* Ionized Calcium Phosphorus Magnesium Iron TIBC Ferritin Total Bilirubin 1.80 H Direct Bilirubin AST 80 H ALT 62 H Alkaline Phosphatase 209 H Total Creatine Kinase 9758 H CK-MB (CK-2) Troponin T C-Reactive Protein Serum Total Protein Total Protein 5.2 L Albumin 2.2 L Behfp-7-Lmcfuprfp Xvmwb-3-Huaxwwxkr PEP Interpretation Triglycerides LDL Cholesterol Direct HDL Cholesterol Free T4 PTH Intact Urine WBC (Auto) Urine Creatinine Salicylates Acetaminophen Crossmatch 03/23/19 03/23/19 03/23/19 05:28 05:31 11:33 WBC 29.7 H RBC 3.59 L Hgb 10.1 L Hct 31.1 L MCV MCH MCHC RDW 15.4 H Plt Count 47 L Lymph % (Auto) [place] % (Auto) Eos % (Auto) Lymph # [place] # Eos # Seg Neutrophils % Seg Neuts % (Manual) 89.0 H Lymphocytes % (Manual) 6.0 L Monocytes % (Manual) Eosinophils % (Manual) Nucleated RBC % 1.0 H Seg Neutrophils # Seg Neutrophils # Man 26.4 H Lymphocytes # (Manual) Monocytes # (Manual) Eosinophils # (Manual) PT INR D-Dimer Heparin Anti-Xa Level POC ABG pH ABG pH POC ABG pCO2 POC ABG pO2 ABG pO2 ABG HCO3 ABG O2 Saturation ABG Base Excess ABG Hemoglobin Oxyhemoglobin Sodium Potassium Chloride Carbon Dioxide BUN Creatinine Glucose POC Glucose 122 H 113 H Lactic Acid Calcium Ionized Calcium Phosphorus Magnesium Iron TIBC Ferritin Total Bilirubin Direct Bilirubin AST ALT Alkaline Phosphatase Total Creatine Kinase CK-MB (CK-2) Troponin T C-Reactive Protein Serum Total Protein Total Protein Albumin Btcsr-5-Cuwvqgfvm Dwluy-5-Tdrttbxuv PEP Interpretation Triglycerides LDL Cholesterol Direct HDL Cholesterol Free T4 PTH Intact Urine WBC (Auto) Urine Creatinine Salicylates Acetaminophen Crossmatch 03/23/19 03/24/19 03/24/19 17:47 00:00 04:50 WBC 35.0 H RBC Hgb 10.4 L Hct 32.4 L MCV MCH MCHC RDW Plt Count 60 L Lymph % (Auto) [place] % (Auto) Eos % (Auto) Lymph # [place] # Eos # Seg Neutrophils % Seg Neuts % (Manual) 93.0 H Lymphocytes % (Manual) 5.0 L Monocytes % (Manual) Eosinophils % (Manual) Nucleated RBC % 7.0 H Seg Neutrophils # Seg Neutrophils # Man 32.6 H Lymphocytes # (Manual) Monocytes # (Manual) Eosinophils # (Manual) PT INR D-Dimer Heparin Anti-Xa Level POC ABG pH ABG pH POC ABG pCO2 POC ABG pO2 ABG pO2 ABG HCO3 ABG O2 Saturation ABG Base Excess ABG Hemoglobin Oxyhemoglobin Sodium Potassium Chloride Carbon Dioxide BUN Creatinine Glucose POC Glucose 111 H 108 H Lactic Acid Calcium Ionized Calcium Phosphorus Magnesium Iron TIBC Ferritin Total Bilirubin Direct Bilirubin AST ALT Alkaline Phosphatase Total Creatine Kinase CK-MB (CK-2) Troponin T C-Reactive Protein Serum Total Protein Total Protein Albumin Ildsy-7-Wtwiumsma Hpmfq-0-Hjsotagux PEP Interpretation Triglycerides LDL Cholesterol Direct HDL Cholesterol Free T4 PTH Intact Urine WBC (Auto) Urine Creatinine Salicylates Acetaminophen Crossmatch 03/24/19 03/24/19 03/24/19 04:50 05:06 12:55 WBC RBC Hgb Hct MCV MCH MCHC RDW Plt Count Lymph % (Auto) [place] % (Auto) Eos % (Auto) Lymph # [place] # Eos # Seg Neutrophils % Seg Neuts % (Manual) Lymphocytes % (Manual) Monocytes % (Manual) Eosinophils % (Manual) Nucleated RBC % Seg Neutrophils # Seg Neutrophils # Man Lymphocytes # (Manual) Monocytes # (Manual) Eosinophils # (Manual) PT INR D-Dimer Heparin Anti-Xa Level POC ABG pH ABG pH POC ABG pCO2 POC ABG pO2 ABG pO2 ABG HCO3 ABG O2 Saturation ABG Base Excess ABG Hemoglobin Oxyhemoglobin Sodium 134 L Potassium 5.1 H Chloride 95.3 L Carbon Dioxide 21 L BUN 85 H Creatinine 6.4 H Glucose 109 H POC Glucose 112 H 110 H Lactic Acid Calcium 5.8 L* Ionized Calcium Phosphorus Magnesium Iron TIBC Ferritin Total Bilirubin Direct Bilirubin AST ALT Alkaline Phosphatase Total Creatine Kinase 5747 H CK-MB (CK-2) Troponin T C-Reactive Protein Serum Total Protein Total Protein Albumin Evqea-6-Htcgsepaa Klozn-2-Zevvtjdat PEP Interpretation Triglycerides LDL Cholesterol Direct HDL Cholesterol Free T4 PTH Intact Urine WBC (Auto) Urine Creatinine Salicylates Acetaminophen Crossmatch 03/24/19 03/25/19 03/25/19 23:29 05:00 05:00 WBC RBC Hgb Hct MCV MCH MCHC RDW Plt Count Lymph % (Auto) [place] % (Auto) Eos % (Auto) Lymph # [place] # Eos # Seg Neutrophils % Seg Neuts % (Manual) Lymphocytes % (Manual) Monocytes % (Manual) Eosinophils % (Manual) Nucleated RBC % Seg Neutrophils # Seg Neutrophils # Man Lymphocytes # (Manual) Monocytes # (Manual) Eosinophils # (Manual) PT INR D-Dimer Heparin Anti-Xa Level POC ABG pH ABG pH POC ABG pCO2 POC ABG pO2 ABG pO2 ABG HCO3 ABG O2 Saturation ABG Base Excess ABG Hemoglobin Oxyhemoglobin Sodium 133 L Potassium Chloride 94.0 L Carbon Dioxide 21 L BUN 81 H Creatinine 6.4 H Glucose POC Glucose 109 H Lactic Acid Calcium 5.5 L* Ionized Calcium Phosphorus Magnesium Iron TIBC Ferritin Total Bilirubin Direct Bilirubin AST 80 H ALT Alkaline Phosphatase 202 H Total Creatine Kinase 3589 H CK-MB (CK-2) Troponin T C-Reactive Protein Serum Total Protein Total Protein 5.3 L Albumin 2.4 L Ppyto-9-Zrgisvmgr Vbfqx-7-Pqceocpik PEP Interpretation Triglycerides LDL Cholesterol Direct HDL Cholesterol Free T4 PTH Intact 329.9 H Urine WBC (Auto) Urine Creatinine Salicylates Acetaminophen Crossmatch 03/25/19 03/25/19 03/26/19 05:00 06:30 04:30 WBC 23.3 H RBC 3.61 L Hgb 10.2 L Hct 31.2 L MCV MCH MCHC RDW Plt Count 57 L Lymph % (Auto) [place] % (Auto) Eos % (Auto) Lymph # [place] # Eos # Seg Neutrophils % Seg Neuts % (Manual) 92.0 H Lymphocytes % (Manual) 6.0 L Monocytes % (Manual) Eosinophils % (Manual) Nucleated RBC % Seg Neutrophils # Seg Neutrophils # Man 21.4 H Lymphocytes # (Manual) Monocytes # (Manual) Eosinophils # (Manual) PT INR D-Dimer Heparin Anti-Xa Level POC ABG pH ABG pH 7.326 L POC ABG pCO2 POC ABG pO2 ABG pO2 109.5 H 137.4 H ABG HCO3 18.8 L 18.6 L ABG O2 Saturation ABG Base Excess -4.4 L -6.8 L ABG Hemoglobin 10.1 L 9.9 L Oxyhemoglobin Sodium Potassium Chloride Carbon Dioxide BUN Creatinine Glucose POC Glucose Lactic Acid Calcium Ionized Calcium Phosphorus Magnesium Iron TIBC Ferritin Total Bilirubin Direct Bilirubin AST ALT Alkaline Phosphatase Total Creatine Kinase CK-MB (CK-2) Troponin T C-Reactive Protein Serum Total Protein Total Protein Albumin Shmei-4-Iqgbtuzje Psbqs-3-Anurmsece PEP Interpretation Triglycerides LDL Cholesterol Direct HDL Cholesterol Free T4 PTH Intact Urine WBC (Auto) Urine Creatinine Salicylates Acetaminophen Crossmatch 03/26/19 03/26/19 03/26/19 23:22 Unknown Unknown WBC 19.5 H RBC 3.44 L Hgb 9.8 L Hct 29.9 L MCV MCH MCHC RDW Plt Count 85 L Lymph % (Auto) [place] % (Auto) Eos % (Auto) Lymph # [place] # Eos # Seg Neutrophils % Seg Neuts % (Manual) 95.0 H Lymphocytes % (Manual) 3.0 L Monocytes % (Manual) Eosinophils % (Manual) Nucleated RBC % Seg Neutrophils # Seg Neutrophils # Man 18.5 H Lymphocytes # (Manual) 0.6 L Monocytes # (Manual) Eosinophils # (Manual) PT INR D-Dimer Heparin Anti-Xa Level POC ABG pH ABG pH POC ABG pCO2 POC ABG pO2 ABG pO2 ABG HCO3 ABG O2 Saturation ABG Base Excess ABG Hemoglobin Oxyhemoglobin Sodium 135 L Potassium 5.2 H D Chloride 92.2 L Carbon Dioxide 18 L BUN 109 H Creatinine 8.5 H Glucose 117 H POC Glucose 69 L Lactic Acid Calcium 4.5 L* D Ionized Calcium Phosphorus Magnesium Iron TIBC Ferritin Total Bilirubin Direct Bilirubin AST ALT Alkaline Phosphatase Total Creatine Kinase 4527 H CK-MB (CK-2) Troponin T C-Reactive Protein Serum Total Protein Total Protein Albumin Lyubb-0-Mavfmnhrc Gvdum-4-Rvwkvkldb PEP Interpretation Triglycerides LDL Cholesterol Direct HDL Cholesterol Free T4 PTH Intact Urine WBC (Auto) Urine Creatinine Salicylates Acetaminophen Crossmatch 03/27/19 03/27/19 03/27/19 04:30 04:30 09:00 WBC 19.2 H RBC 3.42 L Hgb 9.9 L Hct 30.0 L MCV MCH MCHC RDW Plt Count 84 L Lymph % (Auto) [place] % (Auto) Eos % (Auto) Lymph # [place] # Eos # Seg Neutrophils % Seg Neuts % (Manual) Lymphocytes % (Manual) Monocytes % (Manual) Eosinophils % (Manual) Nucleated RBC % Seg Neutrophils # Seg Neutrophils # Man Lymphocytes # (Manual) Monocytes # (Manual) Eosinophils # (Manual) PT INR D-Dimer Heparin Anti-Xa Level POC ABG pH ABG pH POC ABG pCO2 POC ABG pO2 ABG pO2 ABG HCO3 ABG O2 Saturation ABG Base Excess ABG Hemoglobin Oxyhemoglobin Sodium 135 L Potassium Chloride 93.5 L Carbon Dioxide BUN 84 H Creatinine 7.1 H Glucose POC Glucose Lactic Acid Calcium 5.0 L* Ionized Calcium Phosphorus Magnesium Iron TIBC Ferritin Total Bilirubin Direct Bilirubin AST 78 H ALT Alkaline Phosphatase 135 H Total Creatine Kinase 4677 H CK-MB (CK-2) Troponin T C-Reactive Protein Serum Total Protein Total Protein 4.8 L Albumin 2.3 L Tsawj-3-Ikywdkhki Jdgrf-2-Qywewmhiw PEP Interpretation Triglycerides 409 H LDL Cholesterol Direct HDL Cholesterol Free T4 PTH Intact Urine WBC (Auto) Urine Creatinine Salicylates Acetaminophen Crossmatch 10/01/19 10/01/19 10/01/19 12:37 14:15 14:15 WBC RBC Hgb 9.7 L Hct 29.5 L MCV MCH MCHC RDW Plt Count 87 L Lymph % (Auto) [place] % (Auto) Eos % (Auto) Lymph # [place] # Eos # Seg Neutrophils % Seg Neuts % (Manual) Lymphocytes % (Manual) Monocytes % (Manual) Eosinophils % (Manual) Nucleated RBC % Seg Neutrophils # Seg Neutrophils # Man Lymphocytes # (Manual) Monocytes # (Manual) Eosinophils # (Manual) PT 15.9 H INR 1.30 H D-Dimer Heparin Anti-Xa Level POC ABG pH ABG pH POC ABG pCO2 POC ABG pO2 ABG pO2 ABG HCO3 ABG O2 Saturation ABG Base Excess ABG Hemoglobin Oxyhemoglobin Sodium Potassium Chloride Carbon Dioxide BUN Creatinine Glucose POC Glucose 129 H Lactic Acid Calcium Ionized Calcium Phosphorus Magnesium Iron TIBC Ferritin Total Bilirubin Direct Bilirubin AST ALT Alkaline Phosphatase Total Creatine Kinase CK-MB (CK-2) Troponin T C-Reactive Protein Serum Total Protein Total Protein Albumin Jltww-3-Wgtoyruur Iptfq-4-Cofjisguz PEP Interpretation Triglycerides LDL Cholesterol Direct HDL Cholesterol Free T4 PTH Intact Urine WBC (Auto) Urine Creatinine Salicylates Acetaminophen Crossmatch 03/27/19 03/27/19 03/27/19 18:00 19:22 19:23 WBC RBC Hgb Hct MCV MCH MCHC RDW Plt Count Lymph % (Auto) [place] % (Auto) Eos % (Auto) Lymph # [place] # Eos # Seg Neutrophils % Seg Neuts % (Manual) Lymphocytes % (Manual) Monocytes % (Manual) Eosinophils % (Manual) Nucleated RBC % Seg Neutrophils # Seg Neutrophils # Man Lymphocytes # (Manual) Monocytes # (Manual) Eosinophils # (Manual) PT INR D-Dimer Heparin Anti-Xa Level < 0.10 L POC ABG pH ABG pH POC ABG pCO2 POC ABG pO2 ABG pO2 ABG HCO3 ABG O2 Saturation ABG Base Excess ABG Hemoglobin Oxyhemoglobin Sodium Potassium Chloride Carbon Dioxide BUN Creatinine Glucose POC Glucose 121 H Lactic Acid Calcium Ionized Calcium Phosphorus Magnesium Iron TIBC Ferritin Total Bilirubin Direct Bilirubin AST ALT Alkaline Phosphatase Total Creatine Kinase 4517 H CK-MB (CK-2) Troponin T C-Reactive Protein Serum Total Protein Total Protein Albumin Eyznj-7-Pxyrxziaq Yjgly-4-Czwwuxvnk PEP Interpretation Triglycerides LDL Cholesterol Direct HDL Cholesterol Free T4 PTH Intact Urine WBC (Auto) Urine Creatinine Salicylates Acetaminophen Crossmatch 03/27/19 03/27/19 03/28/19 22:10 23:52 03:49 WBC RBC Hgb Hct MCV MCH MCHC RDW Plt Count Lymph % (Auto) [place] % (Auto) Eos % (Auto) Lymph # [place] # Eos # Seg Neutrophils % Seg Neuts % (Manual) Lymphocytes % (Manual) Monocytes % (Manual) Eosinophils % (Manual) Nucleated RBC % Seg Neutrophils # Seg Neutrophils # Man Lymphocytes # (Manual) Monocytes # (Manual) Eosinophils # (Manual) PT INR D-Dimer Heparin Anti-Xa Level POC ABG pH 7.338 L ABG pH POC ABG pCO2 33.1 L POC ABG pO2 ABG pO2 ABG HCO3 ABG O2 Saturation ABG Base Excess ABG Hemoglobin Oxyhemoglobin Sodium Potassium Chloride Carbon Dioxide BUN Creatinine Glucose POC Glucose 113 H 117 H Lactic Acid Calcium Ionized Calcium Phosphorus Magnesium Iron TIBC Ferritin Total Bilirubin Direct Bilirubin AST ALT Alkaline Phosphatase Total Creatine Kinase CK-MB (CK-2) Troponin T C-Reactive Protein Serum Total Protein Total Protein Albumin [id number] Royah-[id number] PEP Interpretation Triglycerides LDL Cholesterol Direct HDL Cholesterol Free T4 PTH Intact Urine WBC (Auto) Urine Creatinine Salicylates Acetaminophen Crossmatch 03/28/19 03/28/19 03/28/19 05:13 05:13 06:18 WBC RBC Hgb Hct MCV MCH MCHC RDW Plt Count Lymph % (Auto) [place] % (Auto) Eos % (Auto) Lymph # [place] # Eos # Seg Neutrophils % Seg Neuts % (Manual) Lymphocytes % (Manual) Monocytes % (Manual) Eosinophils % (Manual) Nucleated RBC % Seg Neutrophils # Seg Neutrophils # Man Lymphocytes # (Manual) Monocytes # (Manual) Eosinophils # (Manual) PT INR D-Dimer Heparin Anti-Xa Level 0.23 L POC ABG pH ABG pH POC ABG pCO2 POC ABG pO2 ABG pO2 ABG HCO3 ABG O2 Saturation ABG Base Excess ABG Hemoglobin Oxyhemoglobin Sodium 135 L Potassium 5.5 H D Chloride 95.1 L Carbon Dioxide 16 L D BUN 129 H Creatinine 9.3 H Glucose 158 H POC Glucose 202 H Lactic Acid Calcium 4.0 L* D Ionized Calcium Phosphorus 12.40 H Magnesium Iron TIBC Ferritin Total Bilirubin Direct Bilirubin AST ALT Alkaline Phosphatase Total Creatine Kinase 4266 H CK-MB (CK-2) Troponin T C-Reactive Protein Serum Total Protein Total Protein Albumin Wjixt-2-Nqjenpnts Kthqs-1-Tathyhexx PEP Interpretation Triglycerides LDL Cholesterol Direct HDL Cholesterol Free T4 PTH Intact Urine WBC (Auto) Urine Creatinine Salicylates Acetaminophen Crossmatch 03/28/19 03/28/19 03/28/19 08:25 10:00 12:00 WBC RBC Hgb 4.9 L* D Hct 15.4 L* D MCV MCH MCHC RDW Plt Count Lymph % (Auto) [place] % (Auto) Eos % (Auto) Lymph # [place] # Eos # Seg Neutrophils % Seg Neuts % (Manual) Lymphocytes % (Manual) Monocytes % (Manual) Eosinophils % (Manual) Nucleated RBC % Seg Neutrophils # Seg Neutrophils # Man Lymphocytes # (Manual) Monocytes # (Manual) Eosinophils # (Manual) PT 17.9 H INR 1.52 H D-Dimer 4845.98 H Heparin Anti-Xa Level POC ABG pH ABG pH POC ABG pCO2 POC ABG pO2 ABG pO2 ABG HCO3 ABG O2 Saturation ABG Base Excess ABG Hemoglobin Oxyhemoglobin Sodium Potassium Chloride Carbon Dioxide BUN Creatinine Glucose POC Glucose Lactic Acid Calcium Ionized Calcium Phosphorus Magnesium Iron TIBC Ferritin Total Bilirubin Direct Bilirubin AST ALT Alkaline Phosphatase Total Creatine Kinase CK-MB (CK-2) Troponin T C-Reactive Protein Serum Total Protein Total Protein Albumin Rdimf-6-Vqhdqypap Xwrxs-8-Mkkaxrpuh PEP Interpretation Triglycerides LDL Cholesterol Direct HDL Cholesterol Free T4 PTH Intact Urine WBC (Auto) Urine Creatinine Salicylates Acetaminophen Crossmatch See Detail 03/28/19 03/28/19 03/28/19 12:28 14:10 17:43 WBC RBC Hgb 5.9 L* Hct 18.3 L* MCV MCH MCHC RDW Plt Count Lymph % (Auto) [place] % (Auto) Eos % (Auto) Lymph # [place] # Eos # Seg Neutrophils % Seg Neuts % (Manual) Lymphocytes % (Manual) Monocytes % (Manual) Eosinophils % (Manual) Nucleated RBC % Seg Neutrophils # Seg Neutrophils # Man Lymphocytes # (Manual) Monocytes # (Manual) Eosinophils # (Manual) PT INR D-Dimer Heparin Anti-Xa Level POC ABG pH ABG pH POC ABG pCO2 POC ABG pO2 ABG pO2 ABG HCO3 ABG O2 Saturation ABG Base Excess ABG Hemoglobin Oxyhemoglobin Sodium Potassium Chloride Carbon Dioxide BUN Creatinine Glucose POC Glucose 153 H 159 H Lactic Acid Calcium Ionized Calcium Phosphorus Magnesium Iron TIBC Ferritin Total Bilirubin Direct Bilirubin AST ALT Alkaline Phosphatase Total Creatine Kinase CK-MB (CK-2) Troponin T C-Reactive Protein Serum Total Protein Total Protein Albumin Cchjk-0-Fpqkvojqx Dqffy-2-Ewsexajkz PEP Interpretation Triglycerides LDL Cholesterol Direct HDL Cholesterol Free T4 PTH Intact Urine WBC (Auto) Urine Creatinine Salicylates Acetaminophen Crossmatch 03/28/19 03/28/19 03/28/19 18:10 Unknown 23:59 WBC 24.8 H RBC 3.42 L Hgb 10.2 L D Hct 31.1 L D MCV MCH MCHC RDW 15.4 H Plt Count 54 L Lymph % (Auto) [place] % (Auto) Eos % (Auto) Lymph # [place] # Eos # Seg Neutrophils % Seg Neuts % (Manual) 91.0 H Lymphocytes % (Manual) 8.0 L Monocytes % (Manual) Eosinophils % (Manual) Nucleated RBC % Seg Neutrophils # Seg Neutrophils # Man 22.6 H Lymphocytes # (Manual) Monocytes # (Manual) Eosinophils # (Manual) PT INR D-Dimer Heparin Anti-Xa Level POC ABG pH ABG pH POC ABG pCO2 POC ABG pO2 ABG pO2 ABG HCO3 ABG O2 Saturation ABG Base Excess ABG Hemoglobin Oxyhemoglobin Sodium Potassium 5.7 H Chloride Carbon Dioxide BUN Creatinine Glucose POC Glucose 107 H Lactic Acid Calcium Ionized Calcium Phosphorus Magnesium Iron TIBC Ferritin Total Bilirubin Direct Bilirubin AST ALT Alkaline Phosphatase Total Creatine Kinase CK-MB (CK-2) Troponin T C-Reactive Protein Serum Total Protein Total Protein Albumin Zvxrx-3-Mpherhlgn Leixg-9-Mvlomopnz PEP Interpretation Triglycerides LDL Cholesterol Direct HDL Cholesterol Free T4 PTH Intact Urine WBC (Auto) Urine Creatinine Salicylates Acetaminophen Crossmatch 03/29/19 03/29/19 03/29/19 04:29 05:46 06:22 WBC RBC Hgb 8.6 L Hct 25.7 L MCV MCH MCHC RDW Plt Count 93 L Lymph % (Auto) [place] % (Auto) Eos % (Auto) Lymph # [place] # Eos # Seg Neutrophils % Seg Neuts % (Manual) Lymphocytes % (Manual) Monocytes % (Manual) Eosinophils % (Manual) Nucleated RBC % Seg Neutrophils # Seg Neutrophils # Man Lymphocytes # (Manual) Monocytes # (Manual) Eosinophils # (Manual) PT INR D-Dimer Heparin Anti-Xa Level POC ABG pH ABG pH POC ABG pCO2 32.2 L POC ABG pO2 ABG pO2 ABG HCO3 ABG O2 Saturation ABG Base Excess ABG Hemoglobin Oxyhemoglobin Sodium Potassium Chloride Carbon Dioxide BUN Creatinine Glucose POC Glucose 113 H Lactic Acid Calcium Ionized Calcium Phosphorus Magnesium Iron TIBC Ferritin Total Bilirubin Direct Bilirubin AST ALT Alkaline Phosphatase Total Creatine Kinase CK-MB (CK-2) Troponin T C-Reactive Protein Serum Total Protein Total Protein Albumin Jgzdw-2-Cduddfhii Gfign-8-Qhlehirti PEP Interpretation Triglycerides LDL Cholesterol Direct HDL Cholesterol Free T4 PTH Intact Urine WBC (Auto) Urine Creatinine Salicylates Acetaminophen Crossmatch 03/29/19 03/29/19 03/29/19 06:22 06:22 06:22 WBC 23.2 H RBC 2.91 L Hgb 8.6 L Hct 25.8 L MCV MCH MCHC RDW Plt Count 91 L Lymph % (Auto) [place] % (Auto) Eos % (Auto) Lymph # [place] # Eos # Seg Neutrophils % Seg Neuts % (Manual) Lymphocytes % (Manual) Monocytes % (Manual) Eosinophils % (Manual) Nucleated RBC % Seg Neutrophils # Seg Neutrophils # Man Lymphocytes # (Manual) Monocytes # (Manual) Eosinophils # (Manual) PT INR D-Dimer Heparin Anti-Xa Level POC ABG pH ABG pH POC ABG pCO2 POC ABG pO2 ABG pO2 ABG HCO3 ABG O2 Saturation ABG Base Excess ABG Hemoglobin Oxyhemoglobin Sodium 133 L Potassium Chloride 93.8 L Carbon Dioxide 18 L BUN 109 H Creatinine 7.4 H Glucose 124 H POC Glucose Lactic Acid Calcium 4.6 L* Ionized Calcium Phosphorus Magnesium Iron TIBC Ferritin Total Bilirubin Direct Bilirubin AST ALT Alkaline Phosphatase Total Creatine Kinase 3401 H CK-MB (CK-2) Troponin T C-Reactive Protein Serum Total Protein Total Protein Albumin Itdxo-0-Rnfvbjojx Tftal-5-Hqmmvdegg PEP Interpretation Triglycerides 309 H LDL Cholesterol Direct HDL Cholesterol Free T4 PTH Intact Urine WBC (Auto) Urine Creatinine Salicylates Acetaminophen Crossmatch 03/29/19 03/29/19 03/29/19 11:48 11:48 18:24 WBC RBC Hgb 7.8 L Hct 23.2 L MCV MCH MCHC RDW Plt Count Lymph % (Auto) [place] % (Auto) Eos % (Auto) Lymph # [place] # Eos # Seg Neutrophils % Seg Neuts % (Manual) Lymphocytes % (Manual) Monocytes % (Manual) Eosinophils % (Manual) Nucleated RBC % Seg Neutrophils # Seg Neutrophils # Man Lymphocytes # (Manual) Monocytes # (Manual) Eosinophils # (Manual) PT 15.3 H INR 1.24 H D-Dimer Heparin Anti-Xa Level POC ABG pH ABG pH POC ABG pCO2 POC ABG pO2 ABG pO2 ABG HCO3 ABG O2 Saturation ABG Base Excess ABG Hemoglobin Oxyhemoglobin Sodium Potassium Chloride Carbon Dioxide BUN Creatinine Glucose POC Glucose 122 H Lactic Acid Calcium Ionized Calcium Phosphorus Magnesium Iron TIBC Ferritin Total Bilirubin Direct Bilirubin AST ALT Alkaline Phosphatase Total Creatine Kinase CK-MB (CK-2) Troponin T C-Reactive Protein Serum Total Protein Total Protein Albumin Pgrcw-8-Xoiixuxwa Bxorn-1-Ecrynxyib PEP Interpretation Triglycerides LDL Cholesterol Direct HDL Cholesterol Free T4 PTH Intact Urine WBC (Auto) Urine Creatinine Salicylates Acetaminophen Crossmatch 03/30/19 03/30/19 03/30/19 00:40 04:31 05:04 WBC RBC Hgb 7.6 L Hct 23.0 L MCV MCH MCHC RDW Plt Count Lymph % (Auto) [place] % (Auto) Eos % (Auto) Lymph # [place] # Eos # Seg Neutrophils % Seg Neuts % (Manual) Lymphocytes % (Manual) Monocytes % (Manual) Eosinophils % (Manual) Nucleated RBC % Seg Neutrophils # Seg Neutrophils # Man Lymphocytes # (Manual) Monocytes # (Manual) Eosinophils # (Manual) PT INR D-Dimer Heparin Anti-Xa Level POC ABG pH 7.346 L ABG pH POC ABG pCO2 POC ABG pO2 62 L ABG pO2 ABG HCO3 ABG O2 Saturation ABG Base Excess ABG Hemoglobin Oxyhemoglobin Sodium Potassium Chloride Carbon Dioxide BUN 79 H Creatinine 6.4 H Glucose POC Glucose Lactic Acid Calcium 6.1 L D Ionized Calcium Phosphorus Magnesium Iron TIBC Ferritin Total Bilirubin Direct Bilirubin AST ALT Alkaline Phosphatase Total Creatine Kinase CK-MB (CK-2) Troponin T C-Reactive Protein Serum Total Protein Total Protein Albumin Fboqh-1-Xljvxejjf Doyqs-3-Aseuwivdu PEP Interpretation Triglycerides LDL Cholesterol Direct HDL Cholesterol Free T4 PTH Intact Urine WBC (Auto) Urine Creatinine Salicylates Acetaminophen Crossmatch 03/30/19 03/30/19 03/30/19 08:45 12:09 22:43 WBC 14.3 H RBC 2.33 L Hgb 7.0 L 7.4 L Hct 21.0 L 22.3 L MCV MCH MCHC RDW 15.6 H Plt Count 135 L Lymph % (Auto) [place] % (Auto) Eos % (Auto) Lymph # [place] # Eos # Seg Neutrophils % Seg Neuts % (Manual) Lymphocytes % (Manual) Monocytes % (Manual) Eosinophils % (Manual) Nucleated RBC % Seg Neutrophils # Seg Neutrophils # Man Lymphocytes # (Manual) Monocytes # (Manual) Eosinophils # (Manual) PT INR D-Dimer Heparin Anti-Xa Level POC ABG pH ABG pH POC ABG pCO2 POC ABG pO2 ABG pO2 ABG HCO3 ABG O2 Saturation ABG Base Excess ABG Hemoglobin Oxyhemoglobin Sodium Potassium Chloride Carbon Dioxide BUN Creatinine Glucose POC Glucose Lactic Acid Calcium Ionized Calcium 3.7 L Phosphorus Magnesium Iron TIBC Ferritin Total Bilirubin Direct Bilirubin AST ALT Alkaline Phosphatase Total Creatine Kinase CK-MB (CK-2) Troponin T C-Reactive Protein Serum Total Protein Total Protein Albumin Fsnha-2-Xsyodqjyj Dwaom-1-Ywhzmhccp PEP Interpretation Triglycerides LDL Cholesterol Direct HDL Cholesterol Free T4 PTH Intact Urine WBC (Auto) Urine Creatinine Salicylates Acetaminophen Crossmatch 03/30/19 03/30/19 03/31/19 23:38 Unknown 04:44 WBC 11.5 H RBC 2.40 L Hgb 7.3 L Hct 21.9 L MCV MCH MCHC RDW 15.4 H Plt Count Lymph % (Auto) 10.6 L [place] % (Auto) Eos % (Auto) Lymph # [place] # Eos # Seg Neutrophils % 81.7 H Seg Neuts % (Manual) Lymphocytes % (Manual) Monocytes % (Manual) Eosinophils % (Manual) Nucleated RBC % Seg Neutrophils # 9.4 H Seg Neutrophils # Man Lymphocytes # (Manual) Monocytes # (Manual) Eosinophils # (Manual) PT INR D-Dimer Heparin Anti-Xa Level POC ABG pH ABG pH POC ABG pCO2 POC ABG pO2 ABG pO2 ABG HCO3 ABG O2 Saturation ABG Base Excess ABG Hemoglobin Oxyhemoglobin Sodium Potassium Chloride Carbon Dioxide BUN Creatinine Glucose POC Glucose 155 H Lactic Acid Calcium Ionized Calcium Phosphorus Magnesium Iron TIBC Ferritin Total Bilirubin Direct Bilirubin 0.4 H AST 63 H ALT Alkaline Phosphatase Total Creatine Kinase CK-MB (CK-2) Troponin T C-Reactive Protein Serum Total Protein Total Protein 4.9 L Albumin 2.2 L Gyvrk-2-Ikxesdnzt Dhwee-4-Nwlvxrvef PEP Interpretation Triglycerides LDL Cholesterol Direct HDL Cholesterol Free T4 PTH Intact Urine WBC (Auto) Urine Creatinine Salicylates Acetaminophen Crossmatch 03/31/19 03/31/19 03/31/19 04:44 05:44 08:20 WBC RBC Hgb Hct MCV MCH MCHC RDW Plt Count Lymph % (Auto) [place] % (Auto) Eos % (Auto) Lymph # [place] # Eos # Seg Neutrophils % Seg Neuts % (Manual) Lymphocytes % (Manual) Monocytes % (Manual) Eosinophils % (Manual) Nucleated RBC % Seg Neutrophils # Seg Neutrophils # Man Lymphocytes # (Manual) Monocytes # (Manual) Eosinophils # (Manual) PT INR D-Dimer Heparin Anti-Xa Level POC ABG pH ABG pH POC ABG pCO2 53.5 H POC ABG pO2 62 L ABG pO2 ABG HCO3 ABG O2 Saturation ABG Base Excess ABG Hemoglobin Oxyhemoglobin Sodium 135 L Potassium Chloride 96.7 L Carbon Dioxide 19 L BUN 94 H Creatinine 7.8 H Glucose POC Glucose Lactic Acid Calcium 5.3 L* Ionized Calcium Phosphorus 8.20 H Magnesium Iron TIBC Ferritin Total Bilirubin Direct Bilirubin 0.4 H AST 60 H ALT Alkaline Phosphatase Total Creatine Kinase CK-MB (CK-2) Troponin T C-Reactive Protein Serum Total Protein Total Protein 4.8 L Albumin 2.1 L Plpjl-6-Ofemnigpx Sneod-1-Akczywiws PEP Interpretation Triglycerides LDL Cholesterol Direct HDL Cholesterol Free T4 PTH Intact Urine WBC (Auto) Urine Creatinine Salicylates Acetaminophen Crossmatch 03/31/19 04/01/19 04/01/19 22:14 04:27 04:27 WBC RBC 2.60 L Hgb 8.0 L Hct 24.1 L MCV MCH MCHC RDW 15.7 H Plt Count Lymph % (Auto) 7.9 L [place] % (Auto) Eos % (Auto) Lymph # 0.7 L [place] # Eos # Seg Neutrophils % 83.6 H Seg Neuts % (Manual) Lymphocytes % (Manual) Monocytes % (Manual) Eosinophils % (Manual) Nucleated RBC % Seg Neutrophils # Seg Neutrophils # Man Lymphocytes # (Manual) Monocytes # (Manual) Eosinophils # (Manual) PT INR D-Dimer Heparin Anti-Xa Level POC ABG pH 7.286 L ABG pH POC ABG pCO2 54.7 H POC ABG pO2 179 H ABG pO2 ABG HCO3 ABG O2 Saturation ABG Base Excess ABG Hemoglobin Oxyhemoglobin Sodium Potassium Chloride Carbon Dioxide BUN 68 H Creatinine 6.6 H Glucose POC Glucose Lactic Acid Calcium 6.5 L D Ionized Calcium Phosphorus 7.30 H Magnesium Iron TIBC Ferritin Total Bilirubin Direct Bilirubin AST ALT Alkaline Phosphatase Total Creatine Kinase 1652 H CK-MB (CK-2) Troponin T C-Reactive Protein Serum Total Protein Total Protein Albumin Mfdij-6-Egfitymxc Frgvj-7-Kyggqtbzn PEP Interpretation Triglycerides LDL Cholesterol Direct HDL Cholesterol Free T4 PTH Intact Urine WBC (Auto) Urine Creatinine Salicylates Acetaminophen Crossmatch 04/01/19 04/01/19 04/01/19 05:14 05:37 18:37 WBC RBC Hgb Hct MCV MCH MCHC RDW Plt Count Lymph % (Auto) [place] % (Auto) Eos % (Auto) Lymph # [place] # Eos # Seg Neutrophils % Seg Neuts % (Manual) Lymphocytes % (Manual) Monocytes % (Manual) Eosinophils % (Manual) Nucleated RBC % Seg Neutrophils # Seg Neutrophils # Man Lymphocytes # (Manual) Monocytes # (Manual) Eosinophils # (Manual) PT INR D-Dimer Heparin Anti-Xa Level POC ABG pH 7.283 L ABG pH POC ABG pCO2 53.4 H POC ABG pO2 241 H ABG pO2 ABG HCO3 ABG O2 Saturation ABG Base Excess ABG Hemoglobin Oxyhemoglobin Sodium Potassium Chloride Carbon Dioxide BUN Creatinine Glucose POC Glucose 111 H 119 H Lactic Acid Calcium Ionized Calcium Phosphorus Magnesium Iron TIBC Ferritin Total Bilirubin Direct Bilirubin AST ALT Alkaline Phosphatase Total Creatine Kinase CK-MB (CK-2) Troponin T C-Reactive Protein Serum Total Protein Total Protein Albumin Vamkt-7-Gjinwqwkl Iswif-8-Fbymvzjfp PEP Interpretation Triglycerides LDL Cholesterol Direct HDL Cholesterol Free T4 PTH Intact Urine WBC (Auto) Urine Creatinine Salicylates Acetaminophen Crossmatch 04/01/19 04/02/19 04/02/19 21:28 04:40 05:03 WBC RBC 2.36 L Hgb 7.2 L Hct 21.9 L MCV MCH MCHC RDW 16.0 H Plt Count Lymph % (Auto) 10.8 L [place] % (Auto) Eos % (Auto) Lymph # 0.8 L [place] # Eos # Seg Neutrophils % 80.3 H Seg Neuts % (Manual) Lymphocytes % (Manual) Monocytes % (Manual) Eosinophils % (Manual) Nucleated RBC % Seg Neutrophils # Seg Neutrophils # Man Lymphocytes # (Manual) Monocytes # (Manual) Eosinophils # (Manual) PT INR D-Dimer Heparin Anti-Xa Level POC ABG pH 7.299 L 7.300 L ABG pH POC ABG pCO2 48.2 H 45.2 H POC ABG pO2 133 H 107 H ABG pO2 ABG HCO3 ABG O2 Saturation ABG Base Excess ABG Hemoglobin Oxyhemoglobin Sodium Potassium Chloride Carbon Dioxide BUN Creatinine Glucose POC Glucose Lactic Acid Calcium Ionized Calcium Phosphorus Magnesium Iron TIBC Ferritin Total Bilirubin Direct Bilirubin AST ALT Alkaline Phosphatase Total Creatine Kinase CK-MB (CK-2) Troponin T C-Reactive Protein Serum Total Protein Total Protein Albumin Ohpzy-7-Mahhomtpr Vicii-7-Kpumetiyp PEP Interpretation Triglycerides LDL Cholesterol Direct HDL Cholesterol Free T4 PTH Intact Urine WBC (Auto) Urine Creatinine Salicylates Acetaminophen Crossmatch 04/02/19 04/02/19 04/02/19 05:03 05:03 12:15 WBC RBC Hgb 7.4 L Hct 22.6 L MCV MCH MCHC RDW Plt Count Lymph % (Auto) [place] % (Auto) Eos % (Auto) Lymph # [place] # Eos # Seg Neutrophils % Seg Neuts % (Manual) Lymphocytes % (Manual) Monocytes % (Manual) Eosinophils % (Manual) Nucleated RBC % Seg Neutrophils # Seg Neutrophils # Man Lymphocytes # (Manual) Monocytes # (Manual) Eosinophils # (Manual) PT INR D-Dimer Heparin Anti-Xa Level POC ABG pH ABG pH POC ABG pCO2 POC ABG pO2 ABG pO2 ABG HCO3 ABG O2 Saturation ABG Base Excess ABG Hemoglobin Oxyhemoglobin Sodium 136 L Potassium Chloride 97.8 L Carbon Dioxide 18 L BUN 82 H Creatinine 8.2 H Glucose POC Glucose Lactic Acid Calcium 6.7 L Ionized Calcium Phosphorus 7.50 H Magnesium Iron 26 L TIBC 138 L Ferritin 607.0 H Total Bilirubin Direct Bilirubin AST ALT Alkaline Phosphatase Total Creatine Kinase CK-MB (CK-2) Troponin T C-Reactive Protein Serum Total Protein Total Protein Albumin Fvoli-5-Qjjruhiwt Tlyon-5-Yyupmitzb PEP Interpretation Triglycerides LDL Cholesterol Direct HDL Cholesterol Free T4 PTH Intact Urine WBC (Auto) Urine Creatinine Salicylates Acetaminophen Crossmatch 04/02/19 04/02/19 04/03/19 16:34 17:14 04:18 WBC RBC Hgb Hct MCV MCH MCHC RDW Plt Count Lymph % (Auto) [place] % (Auto) Eos % (Auto) Lymph # [place] # Eos # Seg Neutrophils % Seg Neuts % (Manual) Lymphocytes % (Manual) Monocytes % (Manual) Eosinophils % (Manual) Nucleated RBC % Seg Neutrophils # Seg Neutrophils # Man Lymphocytes # (Manual) Monocytes # (Manual) Eosinophils # (Manual) PT INR D-Dimer Heparin Anti-Xa Level POC ABG pH ABG pH POC ABG pCO2 POC ABG pO2 146 H ABG pO2 ABG HCO3 ABG O2 Saturation ABG Base Excess ABG Hemoglobin Oxyhemoglobin Sodium Potassium Chloride Carbon Dioxide BUN Creatinine Glucose POC Glucose 108 H Lactic Acid Calcium Ionized Calcium Phosphorus Magnesium Iron TIBC Ferritin Total Bilirubin Direct Bilirubin AST ALT Alkaline Phosphatase Total Creatine Kinase CK-MB (CK-2) Troponin T C-Reactive Protein Serum Total Protein Total Protein Albumin Uwcbg-1-Rhlajrsqz Mnmpj-5-Ykthehdvj PEP Interpretation Triglycerides LDL Cholesterol Direct HDL Cholesterol Free T4 PTH Intact Urine WBC (Auto) Urine Creatinine Salicylates Acetaminophen Crossmatch See Detail 04/03/19 04/03/19 04/03/19 04:25 08:30 18:24 WBC RBC 2.40 L Hgb 7.3 L Hct 21.9 L MCV MCH MCHC RDW Plt Count Lymph % (Auto) [place] % (Auto) 7.7 H Eos % (Auto) Lymph # 0.9 L [place] # Eos # Seg Neutrophils % 74.6 H Seg Neuts % (Manual) Lymphocytes % (Manual) Monocytes % (Manual) Eosinophils % (Manual) Nucleated RBC % Seg Neutrophils # Seg Neutrophils # Man Lymphocytes # (Manual) Monocytes # (Manual) Eosinophils # (Manual) PT INR D-Dimer Heparin Anti-Xa Level POC ABG pH ABG pH POC ABG pCO2 POC ABG pO2 ABG pO2 ABG HCO3 ABG O2 Saturation ABG Base Excess ABG Hemoglobin Oxyhemoglobin Sodium 136 L Potassium Chloride 97.0 L Carbon Dioxide BUN 58 H Creatinine 7.3 H Glucose POC Glucose 106 H Lactic Acid Calcium 7.5 L Ionized Calcium Phosphorus 5.80 H D Magnesium Iron TIBC Ferritin Total Bilirubin Direct Bilirubin AST ALT Alkaline Phosphatase Total Creatine Kinase CK-MB (CK-2) Troponin T C-Reactive Protein Serum Total Protein Total Protein Albumin Jkqjn-4-Zzxkrxoie Lhtvg-1-Kyikmvuff PEP Interpretation Triglycerides LDL Cholesterol Direct HDL Cholesterol Free T4 PTH Intact Urine WBC (Auto) Urine Creatinine Salicylates Acetaminophen Crossmatch 04/03/19 04/04/19 04/04/19 23:43 04:47 04:47 WBC RBC 2.72 L Hgb 8.3 L Hct 24.7 L MCV MCH MCHC RDW 15.6 H Plt Count Lymph % (Auto) [place] % (Auto) 10.1 H Eos % (Auto) Lymph # 0.8 L [place] # Eos # Seg Neutrophils % 71.4 H Seg Neuts % (Manual) Lymphocytes % (Manual) Monocytes % (Manual) Eosinophils % (Manual) Nucleated RBC % Seg Neutrophils # Seg Neutrophils # Man Lymphocytes # (Manual) Monocytes # (Manual) Eosinophils # (Manual) PT INR D-Dimer Heparin Anti-Xa Level POC ABG pH ABG pH POC ABG pCO2 POC ABG pO2 ABG pO2 123.8 H ABG HCO3 ABG O2 Saturation ABG Base Excess -3.0 L ABG Hemoglobin 7.9 L Oxyhemoglobin Sodium 134 L Potassium Chloride 97.9 L Carbon Dioxide BUN 64 H Creatinine 8.1 H Glucose POC Glucose Lactic Acid Calcium 7.2 L Ionized Calcium Phosphorus Magnesium Iron TIBC Ferritin Total Bilirubin Direct Bilirubin AST ALT Alkaline Phosphatase Total Creatine Kinase CK-MB (CK-2) Troponin T C-Reactive Protein Serum Total Protein Total Protein Albumin Quqmg-2-Kpbfekbwr Iqrqq-7-Oiledesex PEP Interpretation Triglycerides LDL Cholesterol Direct HDL Cholesterol Free T4 PTH Intact Urine WBC (Auto) Urine Creatinine Salicylates Acetaminophen Crossmatch 04/04/19 04/04/19 04/04/19 06:07 13:40 18:18 WBC RBC Hgb Hct MCV MCH MCHC RDW Plt Count Lymph % (Auto) [place] % (Auto) Eos % (Auto) Lymph # [place] # Eos # Seg Neutrophils % Seg Neuts % (Manual) Lymphocytes % (Manual) Monocytes % (Manual) Eosinophils % (Manual) Nucleated RBC % Seg Neutrophils # Seg Neutrophils # Man Lymphocytes # (Manual) Monocytes # (Manual) Eosinophils # (Manual) PT INR D-Dimer Heparin Anti-Xa Level POC ABG pH ABG pH POC ABG pCO2 POC ABG pO2 ABG pO2 95.9 H ABG HCO3 ABG O2 Saturation ABG Base Excess -3.0 L ABG Hemoglobin 8.5 L Oxyhemoglobin Sodium Potassium Chloride Carbon Dioxide BUN Creatinine Glucose POC Glucose 107 H 107 H Lactic Acid Calcium Ionized Calcium Phosphorus Magnesium Iron TIBC Ferritin Total Bilirubin Direct Bilirubin AST ALT Alkaline Phosphatase Total Creatine Kinase CK-MB (CK-2) Troponin T C-Reactive Protein Serum Total Protein Total Protein Albumin Buwja-1-Ymaglhxeo Dqfwe-2-Xiwvfwekk PEP Interpretation Triglycerides LDL Cholesterol Direct HDL Cholesterol Free T4 PTH Intact Urine WBC (Auto) Urine Creatinine Salicylates Acetaminophen Crossmatch 04/04/19 04/05/19 04/05/19 21:22 04:09 04:09 WBC RBC 2.76 L Hgb 8.4 L Hct 25.4 L MCV MCH MCHC RDW 15.8 H Plt Count 133 L Lymph % (Auto) [place] % (Auto) 9.6 H Eos % (Auto) Lymph # 0.7 L [place] # Eos # Seg Neutrophils % 72.6 H Seg Neuts % (Manual) Lymphocytes % (Manual) Monocytes % (Manual) Eosinophils % (Manual) Nucleated RBC % Seg Neutrophils # Seg Neutrophils # Man Lymphocytes # (Manual) Monocytes # (Manual) Eosinophils # (Manual) PT INR D-Dimer Heparin Anti-Xa Level POC ABG pH ABG pH POC ABG pCO2 47.2 H POC ABG pO2 137 H ABG pO2 ABG HCO3 ABG O2 Saturation ABG Base Excess ABG Hemoglobin Oxyhemoglobin Sodium 136 L Potassium Chloride Carbon Dioxide BUN 46 H Creatinine 6.7 H Glucose POC Glucose Lactic Acid Calcium 7.7 L Ionized Calcium Phosphorus Magnesium Iron TIBC Ferritin Total Bilirubin Direct Bilirubin AST ALT Alkaline Phosphatase Total Creatine Kinase CK-MB (CK-2) Troponin T C-Reactive Protein Serum Total Protein Total Protein Albumin Prvur-0-Lfihrqvzw [place]cai-2-Koseffdgh PEP Interpretation Triglycerides LDL Cholesterol Direct HDL Cholesterol Free T4 PTH Intact Urine WBC (Auto) Urine Creatinine Salicylates Acetaminophen Crossmatch 04/05/19 04/05/19 04/05/19 05:28 06:14 16:50 WBC RBC Hgb Hct MCV MCH MCHC RDW Plt Count Lymph % (Auto) [place] % (Auto) Eos % (Auto) Lymph # [place] # Eos # Seg Neutrophils % Seg Neuts % (Manual) Lymphocytes % (Manual) Monocytes % (Manual) Eosinophils % (Manual) Nucleated RBC % Seg Neutrophils # Seg Neutrophils # Man Lymphocytes # (Manual) Monocytes # (Manual) Eosinophils # (Manual) PT INR D-Dimer Heparin Anti-Xa Level POC ABG pH ABG pH POC ABG pCO2 POC ABG pO2 67 L ABG pO2 ABG HCO3 ABG O2 Saturation ABG Base Excess ABG Hemoglobin Oxyhemoglobin Sodium Potassium Chloride Carbon Dioxide BUN Creatinine Glucose POC Glucose 108 H Lactic Acid Calcium Ionized Calcium Phosphorus Magnesium Iron TIBC Ferritin Total Bilirubin Direct Bilirubin AST ALT Alkaline Phosphatase Total Creatine Kinase CK-MB (CK-2) Troponin T C-Reactive Protein Serum Total Protein Total Protein Albumin Rflje-5-Iaemcuwhz Dooqt-4-Xnwapzvjy PEP Interpretation Triglycerides LDL Cholesterol Direct HDL Cholesterol Free T4 PTH Intact Urine WBC (Auto) 40.0 H Urine Creatinine Salicylates Acetaminophen Crossmatch 04/05/19 04/06/19 04/06/19 17:22 00:13 04:44 WBC RBC 2.48 L Hgb 7.5 L Hct 22.9 L MCV MCH MCHC RDW 16.0 H Plt Count 107 L Lymph % (Auto) [place] % (Auto) 10.7 H Eos % (Auto) Lymph # 1.0 L [place] # Eos # Seg Neutrophils % Seg Neuts % (Manual) Lymphocytes % (Manual) Monocytes % (Manual) Eosinophils % (Manual) Nucleated RBC % Seg Neutrophils # Seg Neutrophils # Man Lymphocytes # (Manual) Monocytes # (Manual) Eosinophils # (Manual) PT INR D-Dimer Heparin Anti-Xa Level POC ABG pH ABG pH POC ABG pCO2 POC ABG pO2 ABG pO2 ABG HCO3 ABG O2 Saturation ABG Base Excess ABG Hemoglobin Oxyhemoglobin Sodium Potassium Chloride Carbon Dioxide BUN Creatinine Glucose POC Glucose 118 H 138 H Lactic Acid Calcium Ionized Calcium Phosphorus Magnesium Iron TIBC Ferritin Total Bilirubin Direct Bilirubin AST ALT Alkaline Phosphatase Total Creatine Kinase CK-MB (CK-2) Troponin T C-Reactive Protein Serum Total Protein Total Protein Albumin Qimzc-3-Cdtgowjhe Dosvk-6-Nzmtndcuo PEP Interpretation Triglycerides LDL Cholesterol Direct HDL Cholesterol Free T4 PTH Intact Urine WBC (Auto) Urine Creatinine Salicylates Acetaminophen Crossmatch 04/06/19 04/06/19 04/06/19 04:44 05:20 05:23 WBC RBC Hgb Hct MCV MCH MCHC RDW Plt Count Lymph % (Auto) [place] % (Auto) Eos % (Auto) Lymph # [place] # Eos # Seg Neutrophils % Seg Neuts % (Manual) Lymphocytes % (Manual) Monocytes % (Manual) Eosinophils % (Manual) Nucleated RBC % Seg Neutrophils # Seg Neutrophils # Man Lymphocytes # (Manual) Monocytes # (Manual) Eosinophils # (Manual) PT INR D-Dimer Heparin Anti-Xa Level POC ABG pH ABG pH POC ABG pCO2 POC ABG pO2 ABG pO2 104.0 H ABG HCO3 ABG O2 Saturation ABG Base Excess -2.1 L ABG Hemoglobin 7.3 L Oxyhemoglobin Sodium Potassium Chloride Carbon Dioxide BUN 64 H Creatinine 8.2 H Glucose 103 H POC Glucose 118 H Lactic Acid Calcium 7.3 L Ionized Calcium Phosphorus Magnesium Iron TIBC Ferritin Total Bilirubin Direct Bilirubin AST ALT Alkaline Phosphatase Total Creatine Kinase CK-MB (CK-2) Troponin T C-Reactive Protein Serum Total Protein Total Protein Albumin Dbsoz-2-Hyeupxwyf Okcpo-0-Pqenzwgve PEP Interpretation Triglycerides LDL Cholesterol Direct HDL Cholesterol Free T4 PTH Intact Urine WBC (Auto) Urine Creatinine Salicylates Acetaminophen Crossmatch 04/06/19 04/07/19 04/07/19 12:02 05:40 05:40 WBC RBC 2.59 L Hgb 7.9 L Hct 23.8 L MCV MCH MCHC RDW 15.8 H Plt Count 89 L Lymph % (Auto) [place] % (Auto) 10.3 H Eos % (Auto) Lymph # 1.1 L [place] # Eos # Seg Neutrophils % Seg Neuts % (Manual) Lymphocytes % (Manual) Monocytes % (Manual) Eosinophils % (Manual) Nucleated RBC % Seg Neutrophils # Seg Neutrophils # Man Lymphocytes # (Manual) Monocytes # (Manual) Eosinophils # (Manual) PT INR D-Dimer Heparin Anti-Xa Level POC ABG pH ABG pH POC ABG pCO2 POC ABG pO2 ABG pO2 ABG HCO3 ABG O2 Saturation ABG Base Excess ABG Hemoglobin Oxyhemoglobin Sodium 136 L Potassium 3.5 L Chloride Carbon Dioxide BUN 46 H Creatinine 6.2 H Glucose POC Glucose 108 H Lactic Acid Calcium 7.9 L Ionized Calcium Phosphorus Magnesium Iron TIBC Ferritin Total Bilirubin Direct Bilirubin AST ALT Alkaline Phosphatase Total Creatine Kinase CK-MB (CK-2) Troponin T C-Reactive Protein Serum Total Protein Total Protein Albumin Exqbc-6-Kfnukvgeg Pnqgh-3-Nfjcszqeh PEP Interpretation Triglycerides LDL Cholesterol Direct HDL Cholesterol Free T4 PTH Intact Urine WBC (Auto) Urine Creatinine Salicylates Acetaminophen Crossmatch 04/07/19 04/09/19 04/09/19 12:57 04:28 04:28 WBC RBC 2.85 L Hgb 8.7 L Hct 26.2 L MCV MCH MCHC RDW 15.6 H Plt Count Lymph % (Auto) [place] % (Auto) 10.4 H Eos % (Auto) Lymph # 1.0 L [place] # Eos # Seg Neutrophils % 73.3 H Seg Neuts % (Manual) Lymphocytes % (Manual) Monocytes % (Manual) Eosinophils % (Manual) Nucleated RBC % Seg Neutrophils # Seg Neutrophils # Man Lymphocytes # (Manual) Monocytes # (Manual) Eosinophils # (Manual) PT INR D-Dimer Heparin Anti-Xa Level POC ABG pH ABG pH POC ABG pCO2 POC ABG pO2 107 H ABG pO2 ABG HCO3 ABG O2 Saturation ABG Base Excess ABG Hemoglobin Oxyhemoglobin Sodium Potassium 3.5 L Chloride 97.8 L Carbon Dioxide BUN 62 H Creatinine 8.1 H Glucose POC Glucose Lactic Acid Calcium 8.2 L Ionized Calcium Phosphorus 5.10 H Magnesium Iron TIBC Ferritin Total Bilirubin Direct Bilirubin AST ALT Alkaline Phosphatase Total Creatine Kinase CK-MB (CK-2) Troponin T C-Reactive Protein Serum Total Protein Total Protein Albumin Uuzfr-3-Qyyuzkqnc Twxcn-6-Zjxzjowbf PEP Interpretation Triglycerides LDL Cholesterol Direct HDL Cholesterol Free T4 PTH Intact Urine WBC (Auto) Urine Creatinine Salicylates Acetaminophen Crossmatch 04/10/19 04/11/19 04/11/19 18:15 00:25 04:16 WBC 11.5 H RBC 2.91 L Hgb 8.9 L Hct 27.6 L MCV 95 H MCH MCHC RDW 17.5 H Plt Count Lymph % (Auto) [place] % (Auto) Eos % (Auto) Lymph # [place] # Eos # Seg Neutrophils % Seg Neuts % (Manual) 71.0 H Lymphocytes % (Manual) Monocytes % (Manual) 8.0 H Eosinophils % (Manual) Nucleated RBC % Seg Neutrophils # Seg Neutrophils # Man 8.2 H Lymphocytes # (Manual) Monocytes # (Manual) 0.9 H Eosinophils # (Manual) PT INR D-Dimer Heparin Anti-Xa Level POC ABG pH ABG pH POC ABG pCO2 POC ABG pO2 ABG pO2 ABG HCO3 ABG O2 Saturation ABG Base Excess ABG Hemoglobin Oxyhemoglobin Sodium Potassium Chloride Carbon Dioxide BUN Creatinine Glucose POC Glucose 109 H 114 H Lactic Acid Calcium Ionized Calcium Phosphorus Magnesium Iron TIBC Ferritin Total Bilirubin Direct Bilirubin AST ALT Alkaline Phosphatase Total Creatine Kinase CK-MB (CK-2) Troponin T C-Reactive Protein Serum Total Protein Total Protein Albumin Onhqw-4-Lkngqtjlk Ylems-4-Sreniufac PEP Interpretation Triglycerides LDL Cholesterol Direct HDL Cholesterol Free T4 PTH Intact Urine WBC (Auto) Urine Creatinine Salicylates Acetaminophen Crossmatch 04/11/19 04/11/19 04/11/19 06:47 09:21 12:15 WBC RBC Hgb Hct MCV MCH MCHC RDW Plt Count Lymph % (Auto) [place] % (Auto) Eos % (Auto) Lymph # [place] # Eos # Seg Neutrophils % Seg Neuts % (Manual) Lymphocytes % (Manual) Monocytes % (Manual) Eosinophils % (Manual) Nucleated RBC % Seg Neutrophils # Seg Neutrophils # Man Lymphocytes # (Manual) Monocytes # (Manual) Eosinophils # (Manual) PT INR D-Dimer Heparin Anti-Xa Level POC ABG pH ABG pH POC ABG pCO2 POC ABG pO2 ABG pO2 ABG HCO3 ABG O2 Saturation ABG Base Excess ABG Hemoglobin Oxyhemoglobin Sodium Potassium 3.5 L Chloride Carbon Dioxide BUN 45 H Creatinine 6.0 H Glucose 113 H POC Glucose 106 H 109 H Lactic Acid Calcium Ionized Calcium Phosphorus Magnesium Iron TIBC Ferritin Total Bilirubin Direct Bilirubin AST ALT Alkaline Phosphatase Total Creatine Kinase CK-MB (CK-2) Troponin T C-Reactive Protein Serum Total Protein Total Protein Albumin Phfpb-5-Jurdlcfwj Ngwuo-3-Movlmkicd PEP Interpretation Triglycerides LDL Cholesterol Direct HDL Cholesterol Free T4 PTH Intact Urine WBC (Auto) Urine Creatinine Salicylates Acetaminophen Crossmatch 04/11/19 04/12/19 04/12/19 18:42 12:13 23:52 WBC RBC Hgb Hct MCV MCH MCHC RDW Plt Count Lymph % (Auto) [place] % (Auto) Eos % (Auto) Lymph # [place] # Eos # Seg Neutrophils % Seg Neuts % (Manual) Lymphocytes % (Manual) Monocytes % (Manual) Eosinophils % (Manual) Nucleated RBC % Seg Neutrophils # Seg Neutrophils # Man Lymphocytes # (Manual) Monocytes # (Manual) Eosinophils # (Manual) PT INR D-Dimer Heparin Anti-Xa Level POC ABG pH ABG pH POC ABG pCO2 POC ABG pO2 ABG pO2 ABG HCO3 ABG O2 Saturation ABG Base Excess ABG Hemoglobin Oxyhemoglobin Sodium Potassium Chloride Carbon Dioxide BUN Creatinine Glucose POC Glucose 107 H 115 H 124 H Lactic Acid Calcium Ionized Calcium Phosphorus Magnesium Iron TIBC Ferritin Total Bilirubin Direct Bilirubin AST ALT Alkaline Phosphatase Total Creatine Kinase CK-MB (CK-2) Troponin T C-Reactive Protein Serum Total Protein Total Protein Albumin Bemlt-0-Vbbhihcrd Bnemw-5-Zmdkvcgye PEP Interpretation Triglycerides LDL Cholesterol Direct HDL Cholesterol Free T4 PTH Intact Urine WBC (Auto) Urine Creatinine Salicylates Acetaminophen Crossmatch 04/13/19 04/13/19 04/13/19 05:00 05:00 05:47 WBC 11.7 H RBC 2.97 L Hgb 8.8 L Hct 27.3 L MCV MCH MCHC RDW 16.1 H Plt Count Lymph % (Auto) 9.5 L [place] % (Auto) 9.9 H Eos % (Auto) Lymph # 1.1 L [place] # 1.2 H Eos # Seg Neutrophils % 78.6 H Seg Neuts % (Manual) Lymphocytes % (Manual) Monocytes % (Manual) Eosinophils % (Manual) Nucleated RBC % Seg Neutrophils # 9.2 H Seg Neutrophils # Man Lymphocytes # (Manual) Monocytes # (Manual) Eosinophils # (Manual) PT INR D-Dimer Heparin Anti-Xa Level POC ABG pH ABG pH POC ABG pCO2 POC ABG pO2 ABG pO2 ABG HCO3 ABG O2 Saturation ABG Base Excess ABG Hemoglobin Oxyhemoglobin Sodium Potassium 3.5 L Chloride Carbon Dioxide BUN 42 H Creatinine 4.6 H Glucose 106 H POC Glucose 107 H Lactic Acid Calcium 10.6 H D Ionized Calcium Phosphorus 5.90 H Magnesium Iron TIBC Ferritin Total Bilirubin Direct Bilirubin AST ALT Alkaline Phosphatase Total Creatine Kinase CK-MB (CK-2) Troponin T C-Reactive Protein Serum Total Protein Total Protein 5.8 L Albumin 2.5 L Zehdr-9-Kscdvmybr Qztbg-6-Jrefylagy PEP Interpretation Triglycerides LDL Cholesterol Direct HDL Cholesterol Free T4 PTH Intact Urine WBC (Auto) Urine Creatinine Salicylates Acetaminophen Crossmatch 04/13/19 04/14/19 04/14/19 17:32 00:00 03:55 WBC RBC Hgb Hct MCV MCH MCHC RDW Plt Count Lymph % (Auto) [place] % (Auto) Eos % (Auto) Lymph # [place] # Eos # Seg Neutrophils % Seg Neuts % (Manual) Lymphocytes % (Manual) Monocytes % (Manual) Eosinophils % (Manual) Nucleated RBC % Seg Neutrophils # Seg Neutrophils # Man Lymphocytes # (Manual) Monocytes # (Manual) Eosinophils # (Manual) PT INR D-Dimer Heparin Anti-Xa Level POC ABG pH ABG pH POC ABG pCO2 POC ABG pO2 ABG pO2 ABG HCO3 ABG O2 Saturation ABG Base Excess ABG Hemoglobin Oxyhemoglobin Sodium Potassium 3.0 L Chloride Carbon Dioxide BUN 30 H Creatinine 3.1 H Glucose POC Glucose 112 H 120 H Lactic Acid Calcium 10.8 H Ionized Calcium Phosphorus Magnesium Iron TIBC Ferritin Total Bilirubin Direct Bilirubin AST ALT Alkaline Phosphatase Total Creatine Kinase CK-MB (CK-2) Troponin T C-Reactive Protein Serum Total Protein Total Protein Albumin Sfwxc-2-Yiavwzsih Zbkdn-0-Qnitksnos PEP Interpretation Triglycerides LDL Cholesterol Direct HDL Cholesterol Free T4 PTH Intact Urine WBC (Auto) Urine Creatinine Salicylates Acetaminophen Crossmatch 04/14/19 04/14/19 04/15/19 11:56 23:28 05:11 WBC 13.0 H RBC 2.93 L Hgb 8.6 L Hct 26.5 L MCV MCH MCHC RDW 16.5 H Plt Count Lymph % (Auto) 12.2 L [place] % (Auto) 9.1 H Eos % (Auto) Lymph # [place] # 1.2 H Eos # Seg Neutrophils % 77.6 H Seg Neuts % (Manual) Lymphocytes % (Manual) Monocytes % (Manual) Eosinophils % (Manual) Nucleated RBC % Seg Neutrophils # 10.1 H Seg Neutrophils # Man Lymphocytes # (Manual) Monocytes # (Manual) Eosinophils # (Manual) PT INR D-Dimer Heparin Anti-Xa Level POC ABG pH ABG pH POC ABG pCO2 POC ABG pO2 ABG pO2 ABG HCO3 ABG O2 Saturation ABG Base Excess ABG Hemoglobin Oxyhemoglobin Sodium Potassium Chloride Carbon Dioxide BUN Creatinine Glucose POC Glucose 109 H 112 H Lactic Acid Calcium Ionized Calcium Phosphorus Magnesium Iron TIBC Ferritin Total Bilirubin Direct Bilirubin AST ALT Alkaline Phosphatase Total Creatine Kinase CK-MB (CK-2) Troponin T C-Reactive Protein Serum Total Protein Total Protein Albumin Udvhu-1-Vtkgidbjv Lldui-2-Orjjrwoub PEP Interpretation Triglycerides LDL Cholesterol Direct HDL Cholesterol Free T4 PTH Intact Urine WBC (Auto) Urine Creatinine Salicylates Acetaminophen Crossmatch 04/15/19 04/15/19 04/15/19 05:11 05:31 18:03 WBC RBC Hgb Hct MCV MCH MCHC RDW Plt Count Lymph % (Auto) [place] % (Auto) Eos % (Auto) Lymph # [place] # Eos # Seg Neutrophils % Seg Neuts % (Manual) Lymphocytes % (Manual) Monocytes % (Manual) Eosinophils % (Manual) Nucleated RBC % Seg Neutrophils # Seg Neutrophils # Man Lymphocytes # (Manual) Monocytes # (Manual) Eosinophils # (Manual) PT INR D-Dimer Heparin Anti-Xa Level POC ABG pH ABG pH POC ABG pCO2 POC ABG pO2 ABG pO2 ABG HCO3 ABG O2 Saturation ABG Base Excess ABG Hemoglobin Oxyhemoglobin Sodium Potassium 3.2 L Chloride Carbon Dioxide BUN 44 H Creatinine 3.6 H Glucose 106 H POC Glucose 110 H 121 H Lactic Acid Calcium 12.0 H Ionized Calcium Phosphorus 5.00 H Magnesium Iron TIBC Ferritin Total Bilirubin Direct Bilirubin AST ALT Alkaline Phosphatase Total Creatine Kinase CK-MB (CK-2) Troponin T C-Reactive Protein Serum Total Protein Total Protein Albumin Cekrv-9-Vmnywedsz Ayuzy-5-Gginiugcm PEP Interpretation Triglycerides LDL Cholesterol Direct HDL Cholesterol Free T4 PTH Intact Urine WBC (Auto) Urine Creatinine Salicylates Acetaminophen Crossmatch 04/16/19 04/16/19 04/17/19 05:07 05:07 04:15 WBC 12.6 H RBC 3.12 L Hgb 9.0 L Hct 28.2 L MCV MCH MCHC RDW 16.6 H Plt Count Lymph % (Auto) 10.3 L [place] % (Auto) 9.8 H Eos % (Auto) Lymph # [place] # 1.2 H Eos # Seg Neutrophils % 78.2 H Seg Neuts % (Manual) Lymphocytes % (Manual) Monocytes % (Manual) Eosinophils % (Manual) Nucleated RBC % Seg Neutrophils # 9.9 H Seg Neutrophils # Man Lymphocytes # (Manual) Monocytes # (Manual) Eosinophils # (Manual) PT INR D-Dimer Heparin Anti-Xa Level POC ABG pH ABG pH POC ABG pCO2 POC ABG pO2 ABG pO2 ABG HCO3 ABG O2 Saturation ABG Base Excess ABG Hemoglobin Oxyhemoglobin Sodium 147 H 150 H Potassium 3.5 L 3.1 L Chloride Carbon Dioxide 32 H BUN 54 H 65 H Creatinine 3.8 H 4.0 H Glucose 102 H 107 H POC Glucose Lactic Acid Calcium 11.7 H 12.0 H Ionized Calcium Phosphorus 5.40 H Magnesium Iron TIBC Ferritin Total Bilirubin Direct Bilirubin AST ALT Alkaline Phosphatase Total Creatine Kinase CK-MB (CK-2) Troponin T C-Reactive Protein 7.10 H Serum Total Protein Total Protein Albumin Kluxc-6-Yrpbcttjh Tbjxq-4-Sdregwwae PEP Interpretation Triglycerides LDL Cholesterol Direct HDL Cholesterol Free T4 PTH Intact Urine WBC (Auto) Urine Creatinine Salicylates Acetaminophen Crossmatch 04/17/19 04/17/19 04/17/19 04:15 06:05 12:49 WBC 15.8 H RBC 3.32 L Hgb 9.5 L Hct 29.9 L MCV MCH MCHC RDW 16.9 H Plt Count Lymph % (Auto) 12.6 L [place] % (Auto) 11.1 H Eos % (Auto) Lymph # [place] # 1.7 H Eos # Seg Neutrophils % 74.7 H Seg Neuts % (Manual) Lymphocytes % (Manual) Monocytes % (Manual) Eosinophils % (Manual) Nucleated RBC % Seg Neutrophils # 11.8 H Seg Neutrophils # Man Lymphocytes # (Manual) Monocytes # (Manual) Eosinophils # (Manual) PT INR D-Dimer Heparin Anti-Xa Level POC ABG pH ABG pH POC ABG pCO2 POC ABG pO2 ABG pO2 ABG HCO3 ABG O2 Saturation ABG Base Excess ABG Hemoglobin Oxyhemoglobin Sodium Potassium Chloride Carbon Dioxide BUN Creatinine Glucose POC Glucose 111 H 108 H Lactic Acid Calcium Ionized Calcium Phosphorus Magnesium Iron TIBC Ferritin Total Bilirubin Direct Bilirubin AST ALT Alkaline Phosphatase Total Creatine Kinase CK-MB (CK-2) Troponin T C-Reactive Protein Serum Total Protein Total Protein Albumin Vemel-5-Xijvwgsea Tjrpw-4-Xjbazpmzs PEP Interpretation Triglycerides LDL Cholesterol Direct HDL Cholesterol Free T4 PTH Intact Urine WBC (Auto) Urine Creatinine Salicylates Acetaminophen Crossmatch 04/18/19 04/18/19 04/18/19 00:23 04:41 04:41 WBC 19.4 H RBC 3.03 L Hgb 8.6 L Hct 27.5 L MCV MCH MCHC 31 L RDW 16.9 H Plt Count Lymph % (Auto) [place] % (Auto) Eos % (Auto) Lymph # [place] # Eos # Seg Neutrophils % Seg Neuts % (Manual) Lymphocytes % (Manual) Monocytes % (Manual) Eosinophils % (Manual) Nucleated RBC % Seg Neutrophils # Seg Neutrophils # Man Lymphocytes # (Manual) Monocytes # (Manual) Eosinophils # (Manual) PT INR D-Dimer Heparin Anti-Xa Level POC ABG pH ABG pH POC ABG pCO2 POC ABG pO2 ABG pO2 ABG HCO3 ABG O2 Saturation ABG Base Excess ABG Hemoglobin Oxyhemoglobin Sodium 152 H Potassium 3.0 L Chloride Carbon Dioxide BUN 80 H Creatinine 4.3 H Glucose 103 H POC Glucose 115 H Lactic Acid Calcium 11.4 H Ionized Calcium Phosphorus Magnesium Iron TIBC Ferritin Total Bilirubin Direct Bilirubin AST ALT Alkaline Phosphatase Total Creatine Kinase CK-MB (CK-2) Troponin T C-Reactive Protein Serum Total Protein Total Protein Albumin Cvhkk-2-Nimikxfwf Lqfrd-1-Gpfudhakp PEP Interpretation Triglycerides LDL Cholesterol Direct HDL Cholesterol Free T4 PTH Intact Urine WBC (Auto) Urine Creatinine Salicylates Acetaminophen Crossmatch 04/18/19 04/18/19 04/18/19 06:17 12:16 18:10 WBC RBC Hgb Hct MCV MCH MCHC RDW Plt Count Lymph % (Auto) [place] % (Auto) Eos % (Auto) Lymph # [place] # Eos # Seg Neutrophils % Seg Neuts % (Manual) Lymphocytes % (Manual) Monocytes % (Manual) Eosinophils % (Manual) Nucleated RBC % Seg Neutrophils # Seg Neutrophils # Man Lymphocytes # (Manual) Monocytes # (Manual) Eosinophils # (Manual) PT INR D-Dimer Heparin Anti-Xa Level POC ABG pH ABG pH POC ABG pCO2 POC ABG pO2 ABG pO2 ABG HCO3 ABG O2 Saturation ABG Base Excess ABG Hemoglobin Oxyhemoglobin Sodium Potassium Chloride Carbon Dioxide BUN Creatinine Glucose POC Glucose 124 H 119 H 111 H Lactic Acid Calcium Ionized Calcium Phosphorus Magnesium Iron TIBC Ferritin Total Bilirubin Direct Bilirubin AST ALT Alkaline Phosphatase Total Creatine Kinase CK-MB (CK-2) Troponin T C-Reactive Protein Serum Total Protein Total Protein Albumin Ssrax-5-Cdccdaxoy Lndkl-0-Qadabzelh PEP Interpretation Triglycerides LDL Cholesterol Direct HDL Cholesterol Free T4 PTH Intact Urine WBC (Auto) Urine Creatinine Salicylates Acetaminophen Crossmatch 04/19/19 04/19/19 04/20/19 03:49 05:27 09:09 WBC RBC Hgb Hct MCV MCH MCHC RDW Plt Count Lymph % (Auto) [place] % (Auto) Eos % (Auto) Lymph # [place] # Eos # Seg Neutrophils % Seg Neuts % (Manual) Lymphocytes % (Manual) Monocytes % (Manual) Eosinophils % (Manual) Nucleated RBC % Seg Neutrophils # Seg Neutrophils # Man Lymphocytes # (Manual) Monocytes # (Manual) Eosinophils # (Manual) PT INR D-Dimer Heparin Anti-Xa Level POC ABG pH ABG pH POC ABG pCO2 POC ABG pO2 ABG pO2 ABG HCO3 ABG O2 Saturation ABG Base Excess ABG Hemoglobin Oxyhemoglobin Sodium 147 H 150 H Potassium 3.3 L Chloride 108.9 H Carbon Dioxide BUN 45 H 70 H Creatinine 2.9 H 4.1 H Glucose 105 H POC Glucose 124 H Lactic Acid Calcium 10.6 H 11.6 H Ionized Calcium Phosphorus Magnesium Iron TIBC Ferritin Total Bilirubin Direct Bilirubin AST ALT Alkaline Phosphatase Total Creatine Kinase CK-MB (CK-2) Troponin T C-Reactive Protein Serum Total Protein Total Protein Albumin Zopol-9-Mouejapay Vycte-2-Shkxotwrz PEP Interpretation Triglycerides LDL Cholesterol Direct HDL Cholesterol Free T4 PTH Intact Urine WBC (Auto) Urine Creatinine Salicylates Acetaminophen Crossmatch 04/20/19 04/20/19 04/21/19 12:29 18:45 01:34 WBC RBC Hgb Hct MCV MCH MCHC RDW Plt Count Lymph % (Auto) [place] % (Auto) Eos % (Auto) Lymph # [place] # Eos # Seg Neutrophils % Seg Neuts % (Manual) Lymphocytes % (Manual) Monocytes % (Manual) Eosinophils % (Manual) Nucleated RBC % Seg Neutrophils # Seg Neutrophils # Man Lymphocytes # (Manual) Monocytes # (Manual) Eosinophils # (Manual) PT INR D-Dimer Heparin Anti-Xa Level POC ABG pH ABG pH POC ABG pCO2 POC ABG pO2 ABG pO2 ABG HCO3 ABG O2 Saturation ABG Base Excess ABG Hemoglobin Oxyhemoglobin Sodium Potassium Chloride Carbon Dioxide BUN 40 H Creatinine 2.6 H Glucose 104 H POC Glucose 131 H 134 H Lactic Acid Calcium 11.0 H Ionized Calcium Phosphorus Magnesium Iron TIBC Ferritin Total Bilirubin Direct Bilirubin AST ALT Alkaline Phosphatase Total Creatine Kinase CK-MB (CK-2) Troponin T C-Reactive Protein Serum Total Protein Total Protein Albumin Zkkmp-2-Lcmajngdl Iyvyn-8-Eoyzaahra PEP Interpretation Triglycerides LDL Cholesterol Direct HDL Cholesterol Free T4 PTH Intact Urine WBC (Auto) Urine Creatinine Salicylates Acetaminophen Crossmatch 04/21/19 04/21/19 04/22/19 04:22 04:22 04:24 WBC 14.2 H 14.3 H RBC 3.02 L 3.57 L Hgb 8.7 L 10.1 L Hct 27.2 L 32.1 L MCV MCH MCHC RDW 16.7 H 17.2 H Plt Count Lymph % (Auto) [place] % (Auto) Eos % (Auto) Lymph # [place] # Eos # Seg Neutrophils % Seg Neuts % (Manual) Lymphocytes % (Manual) Monocytes % (Manual) Eosinophils % (Manual) Nucleated RBC % Seg Neutrophils # Seg Neutrophils # Man Lymphocytes # (Manual) Monocytes # (Manual) Eosinophils # (Manual) PT INR D-Dimer Heparin Anti-Xa Level POC ABG pH ABG pH POC ABG pCO2 POC ABG pO2 ABG pO2 ABG HCO3 ABG O2 Saturation ABG Base Excess ABG Hemoglobin Oxyhemoglobin Sodium Potassium Chloride Carbon Dioxide BUN Creatinine Glucose POC Glucose Lactic Acid Calcium Ionized Calcium Phosphorus Magnesium Iron TIBC Ferritin Total Bilirubin Direct Bilirubin AST ALT Alkaline Phosphatase Total Creatine Kinase CK-MB (CK-2) Troponin T C-Reactive Protein Serum Total Protein 5.7 L Total Protein Albumin 2.3 L Hohng-9-Gcjcadffj 0.5 H Ymjtk-1-Qvbqrxhwi 1.0 H PEP Interpretation see below H Triglycerides LDL Cholesterol Direct HDL Cholesterol Free T4 PTH Intact Urine WBC (Auto) Urine Creatinine Salicylates Acetaminophen Crossmatch 04/22/19 04/22/19 04/22/19 04:24 06:37 11:57 WBC RBC Hgb Hct MCV MCH MCHC RDW Plt Count Lymph % (Auto) [place] % (Auto) Eos % (Auto) Lymph # [place] # Eos # Seg Neutrophils % Seg Neuts % (Manual) Lymphocytes % (Manual) Monocytes % (Manual) Eosinophils % (Manual) Nucleated RBC % Seg Neutrophils # Seg Neutrophils # Man Lymphocytes # (Manual) Monocytes # (Manual) Eosinophils # (Manual) PT INR D-Dimer Heparin Anti-Xa Level POC ABG pH ABG pH POC ABG pCO2 POC ABG pO2 ABG pO2 ABG HCO3 ABG O2 Saturation ABG Base Excess ABG Hemoglobin Oxyhemoglobin Sodium Potassium Chloride Carbon Dioxide BUN 54 H Creatinine 3.5 H Glucose POC Glucose 113 H 110 H Lactic Acid Calcium 11.4 H Ionized Calcium Phosphorus Magnesium Iron TIBC Ferritin Total Bilirubin Direct Bilirubin AST ALT Alkaline Phosphatase Total Creatine Kinase CK-MB (CK-2) Troponin T C-Reactive Protein Serum Total Protein Total Protein Albumin Fvmsa-8-Xawcxstty Rtjgl-1-Zmlvdbpyb PEP Interpretation Triglycerides LDL Cholesterol Direct HDL Cholesterol Free T4 PTH Intact Urine WBC (Auto) Urine Creatinine Salicylates Acetaminophen Crossmatch 04/22/19 04/23/19 04/23/19 18:33 04:06 04:06 WBC 16.1 H RBC 3.36 L Hgb 9.8 L Hct 30.8 L MCV MCH MCHC RDW 17.7 H Plt Count Lymph % (Auto) 9.9 L [place] % (Auto) Eos % (Auto) Lymph # [place] # Eos # Seg Neutrophils % 84.2 H Seg Neuts % (Manual) Lymphocytes % (Manual) Monocytes % (Manual) Eosinophils % (Manual) Nucleated RBC % Seg Neutrophils # 13.6 H Seg Neutrophils # Man Lymphocytes # (Manual) Monocytes # (Manual) Eosinophils # (Manual) PT INR D-Dimer Heparin Anti-Xa Level POC ABG pH ABG pH POC ABG pCO2 POC ABG pO2 ABG pO2 ABG HCO3 ABG O2 Saturation ABG Base Excess ABG Hemoglobin Oxyhemoglobin Sodium Potassium Chloride Carbon Dioxide BUN 59 H Creatinine 3.8 H Glucose POC Glucose 120 H Lactic Acid Calcium 12.3 H* Ionized Calcium Phosphorus 5.70 H Magnesium Iron TIBC Ferritin Total Bilirubin Direct Bilirubin AST ALT Alkaline Phosphatase Total Creatine Kinase CK-MB (CK-2) Troponin T C-Reactive Protein Serum Total Protein Total Protein Albumin 3.2 L Vbtai-3-Prqrepfco Xlrjq-0-Ekxqgejld PEP Interpretation Triglycerides LDL Cholesterol Direct HDL Cholesterol Free T4 PTH Intact Urine WBC (Auto) Urine Creatinine Salicylates Acetaminophen Crossmatch 04/23/19 04/24/19 04/24/19 18:06 04:12 04:12 WBC 18.0 H RBC 3.46 L Hgb 9.8 L Hct 31.2 L MCV MCH MCHC 31 L RDW 17.5 H Plt Count Lymph % (Auto) 11.1 L [place] % (Auto) Eos % (Auto) Lymph # [place] # Eos # Seg Neutrophils % 81.9 H Seg Neuts % (Manual) Lymphocytes % (Manual) Monocytes % (Manual) Eosinophils % (Manual) Nucleated RBC % Seg Neutrophils # 14.7 H Seg Neutrophils # Man Lymphocytes # (Manual) Monocytes # (Manual) Eosinophils # (Manual) PT INR D-Dimer Heparin Anti-Xa Level POC ABG pH ABG pH POC ABG pCO2 POC ABG pO2 ABG pO2 ABG HCO3 ABG O2 Saturation ABG Base Excess ABG Hemoglobin Oxyhemoglobin Sodium Potassium Chloride Carbon Dioxide BUN 56 H Creatinine 3.6 H Glucose POC Glucose 124 H Lactic Acid Calcium 12.6 H* Ionized Calcium Phosphorus Magnesium Iron TIBC Ferritin Total Bilirubin Direct Bilirubin AST ALT Alkaline Phosphatase Total Creatine Kinase CK-MB (CK-2) Troponin T C-Reactive Protein Serum Total Protein Total Protein Albumin 3.2 L Pqrqn-2-Rclvliydm Lppjh-9-Fpguvtkvy PEP Interpretation Triglycerides LDL Cholesterol Direct HDL Cholesterol Free T4 PTH Intact Urine WBC (Auto) Urine Creatinine Salicylates Acetaminophen Crossmatch 04/24/19 04/24/19 04/25/19 06:21 11:47 05:58 WBC 18.0 H RBC 2.98 L Hgb 8.3 L Hct 26.5 L MCV MCH MCHC 31 L RDW 17.9 H Plt Count Lymph % (Auto) 10.1 L [place] % (Auto) Eos % (Auto) Lymph # [place] # 0.9 H Eos # Seg Neutrophils % 82.8 H Seg Neuts % (Manual) Lymphocytes % (Manual) Monocytes % (Manual) Eosinophils % (Manual) Nucleated RBC % Seg Neutrophils # 15.0 H Seg Neutrophils # Man Lymphocytes # (Manual) Monocytes # (Manual) Eosinophils # (Manual) PT INR D-Dimer Heparin Anti-Xa Level POC ABG pH ABG pH POC ABG pCO2 POC ABG pO2 ABG pO2 ABG HCO3 ABG O2 Saturation ABG Base Excess ABG Hemoglobin Oxyhemoglobin Sodium Potassium Chloride Carbon Dioxide BUN Creatinine Glucose POC Glucose 132 H 106 H Lactic Acid Calcium Ionized Calcium Phosphorus Magnesium Iron TIBC Ferritin Total Bilirubin Direct Bilirubin AST ALT Alkaline Phosphatase Total Creatine Kinase CK-MB (CK-2) Troponin T C-Reactive Protein Serum Total Protein Total Protein Albumin Qxzcv-6-Qgwmknfmq Rgcpn-5-Blzeikrae PEP Interpretation Triglycerides LDL Cholesterol Direct HDL Cholesterol Free T4 PTH Intact Urine WBC (Auto) Urine Creatinine Salicylates Acetaminophen Crossmatch 04/25/19 04/26/19 04/26/19 05:58 05:57 06:08 WBC RBC Hgb Hct MCV MCH MCHC RDW Plt Count Lymph % (Auto) [place] % (Auto) Eos % (Auto) Lymph # [place] # Eos # Seg Neutrophils % Seg Neuts % (Manual) Lymphocytes % (Manual) Monocytes % (Manual) Eosinophils % (Manual) Nucleated RBC % Seg Neutrophils # Seg Neutrophils # Man Lymphocytes # (Manual) Monocytes # (Manual) Eosinophils # (Manual) PT INR D-Dimer Heparin Anti-Xa Level POC ABG pH ABG pH POC ABG pCO2 POC ABG pO2 ABG pO2 ABG HCO3 ABG O2 Saturation ABG Base Excess ABG Hemoglobin Oxyhemoglobin Sodium Potassium 3.2 L Chloride Carbon Dioxide BUN 52 H 48 H Creatinine 3.2 H 2.9 H Glucose 108 H 112 H POC Glucose 109 H Lactic Acid Calcium 11.4 H 12.5 H* Ionized Calcium Phosphorus 5.90 H Magnesium Iron TIBC Ferritin Total Bilirubin Direct Bilirubin AST ALT Alkaline Phosphatase Total Creatine Kinase CK-MB (CK-2) Troponin T C-Reactive Protein Serum Total Protein Total Protein Albumin 3.0 L Yzdmn-1-Ammnxcodr Gbcjj-3-Wavyccyrl PEP Interpretation Triglycerides LDL Cholesterol Direct HDL Cholesterol Free T4 PTH Intact Urine WBC (Auto) Urine Creatinine Salicylates Acetaminophen Crossmatch 04/26/19 04/26/19 04/27/19 07:22 13:39 05:05 WBC 11.9 H RBC 3.01 L Hgb 8.6 L Hct 26.3 L MCV MCH MCHC RDW 17.6 H Plt Count Lymph % (Auto) 11.9 L [place] % (Auto) Eos % (Auto) Lymph # [place] # Eos # Seg Neutrophils % 78.3 H Seg Neuts % (Manual) Lymphocytes % (Manual) Monocytes % (Manual) Eosinophils % (Manual) Nucleated RBC % Seg Neutrophils # 9.4 H Seg Neutrophils # Man Lymphocytes # (Manual) Monocytes # (Manual) Eosinophils # (Manual) PT INR D-Dimer Heparin Anti-Xa Level POC ABG pH ABG pH POC ABG pCO2 POC ABG pO2 ABG pO2 ABG HCO3 ABG O2 Saturation ABG Base Excess ABG Hemoglobin Oxyhemoglobin Sodium Potassium Chloride Carbon Dioxide BUN 46 H Creatinine 2.8 H Glucose POC Glucose Lactic Acid Calcium > 13.0 H* 12.2 H* Ionized Calcium Phosphorus Magnesium Iron TIBC Ferritin Total Bilirubin Direct Bilirubin AST ALT Alkaline Phosphatase Total Creatine Kinase CK-MB (CK-2) Troponin T C-Reactive Protein Serum Total Protein Total Protein Albumin Bwrzw-4-Jetsecmxy Iqwaq-8-Zfjbxkgvm PEP Interpretation Triglycerides LDL Cholesterol Direct HDL Cholesterol Free T4 PTH Intact Urine WBC (Auto) Urine Creatinine Salicylates Acetaminophen Crossmatch 04/27/19 04/28/19 04/29/19 05:05 05:17 14:14 WBC RBC Hgb Hct MCV MCH MCHC RDW Plt Count Lymph % (Auto) [place] % (Auto) Eos % (Auto) Lymph # [place] # Eos # Seg Neutrophils % Seg Neuts % (Manual) Lymphocytes % (Manual) Monocytes % (Manual) Eosinophils % (Manual) Nucleated RBC % Seg Neutrophils # Seg Neutrophils # Man Lymphocytes # (Manual) Monocytes # (Manual) Eosinophils # (Manual) PT INR D-Dimer Heparin Anti-Xa Level POC ABG pH ABG pH POC ABG pCO2 POC ABG pO2 ABG pO2 ABG HCO3 ABG O2 Saturation ABG Base Excess ABG Hemoglobin Oxyhemoglobin Sodium 136 L Potassium 3.2 L 3.4 L Chloride Carbon Dioxide BUN 40 H 34 H 33 H Creatinine 2.5 H 2.0 H 1.9 H Glucose 113 H 107 H POC Glucose Lactic Acid Calcium 12.3 H* 12.1 H* 11.5 H Ionized Calcium Phosphorus Magnesium Iron TIBC Ferritin Total Bilirubin Direct Bilirubin AST ALT Alkaline Phosphatase Total Creatine Kinase CK-MB (CK-2) Troponin T C-Reactive Protein Serum Total Protein Total Protein 6.2 L Albumin 2.8 L Mpzhb-0-Fqaueytov Bpvlk-0-Pdmhslrcn PEP Interpretation Triglycerides LDL Cholesterol Direct HDL Cholesterol Free T4 PTH Intact Urine WBC (Auto) Urine Creatinine Salicylates Acetaminophen Crossmatch 04/29/19 04/29/19 04/30/19 14:14 14:14 06:47 WBC RBC Hgb Hct MCV MCH MCHC RDW Plt Count Lymph % (Auto) [place] % (Auto) Eos % (Auto) Lymph # [place] # Eos # Seg Neutrophils % Seg Neuts % (Manual) Lymphocytes % (Manual) Monocytes % (Manual) Eosinophils % (Manual) Nucleated RBC % Seg Neutrophils # Seg Neutrophils # Man Lymphocytes # (Manual) Monocytes # (Manual) Eosinophils # (Manual) PT INR D-Dimer Heparin Anti-Xa Level POC ABG pH ABG pH POC ABG pCO2 POC ABG pO2 ABG pO2 ABG HCO3 ABG O2 Saturation ABG Base Excess ABG Hemoglobin Oxyhemoglobin Sodium Potassium 3.2 L Chloride Carbon Dioxide 21 L BUN 26 H Creatinine 1.8 H Glucose POC Glucose Lactic Acid Calcium 10.8 H Ionized Calcium 7.2 H* Phosphorus Magnesium Iron TIBC Ferritin Total Bilirubin Direct Bilirubin AST ALT Alkaline Phosphatase Total Creatine Kinase CK-MB (CK-2) Troponin T C-Reactive Protein Serum Total Protein Total Protein Albumin Jswxu-9-Jtfkeokgm Uvzud-1-Jyzsrkwhs PEP Interpretation Triglycerides LDL Cholesterol Direct HDL Cholesterol Free T4 PTH Intact 8.83 L Urine WBC (Auto) Urine Creatinine Salicylates Acetaminophen Crossmatch 04/30/19 05/01/19 05/01/19 12:17 06:52 06:52 WBC 15.4 H RBC 3.01 L Hgb 8.4 L Hct 26.2 L MCV MCH MCHC RDW 17.0 H Plt Count Lymph % (Auto) 8.4 L [place] % (Auto) 8.9 H Eos % (Auto) Lymph # [place] # 1.4 H Eos # 0.5 H Seg Neutrophils % 78.7 H Seg Neuts % (Manual) Lymphocytes % (Manual) Monocytes % (Manual) Eosinophils % (Manual) Nucleated RBC % Seg Neutrophils # 12.1 H Seg Neutrophils # Man Lymphocytes # (Manual) Monocytes # (Manual) Eosinophils # (Manual) PT INR D-Dimer Heparin Anti-Xa Level POC ABG pH ABG pH POC ABG pCO2 POC ABG pO2 ABG pO2 ABG HCO3 ABG O2 Saturation ABG Base Excess ABG Hemoglobin Oxyhemoglobin Sodium Potassium 3.0 L Chloride Carbon Dioxide BUN 22 H Creatinine Glucose POC Glucose 106 H Lactic Acid Calcium 11.2 H Ionized Calcium Phosphorus Magnesium Iron TIBC Ferritin Total Bilirubin Direct Bilirubin AST ALT Alkaline Phosphatase Total Creatine Kinase CK-MB (CK-2) Troponin T C-Reactive Protein Serum Total Protein Total Protein Albumin 3.0 L Jvfjq-2-Nuowusluf Dirbn-3-Nxqhenyfv PEP Interpretation Triglycerides LDL Cholesterol Direct HDL Cholesterol Free T4 PTH Intact Urine WBC (Auto) Urine Creatinine Salicylates Acetaminophen Crossmatch 05/01/19 05/01/19 05/02/19 06:52 18:40 05:32 WBC RBC Hgb Hct MCV MCH MCHC RDW Plt Count Lymph % (Auto) [place] % (Auto) Eos % (Auto) Lymph # [place] # Eos # Seg Neutrophils % Seg Neuts % (Manual) Lymphocytes % (Manual) Monocytes % (Manual) Eosinophils % (Manual) Nucleated RBC % Seg Neutrophils # Seg Neutrophils # Man Lymphocytes # (Manual) Monocytes # (Manual) Eosinophils # (Manual) PT INR D-Dimer Heparin Anti-Xa Level POC ABG pH ABG pH POC ABG pCO2 POC ABG pO2 ABG pO2 ABG HCO3 ABG O2 Saturation ABG Base Excess ABG Hemoglobin Oxyhemoglobin Sodium Potassium Chloride Carbon Dioxide BUN Creatinine Glucose POC Glucose 169 H 109 H Lactic Acid Calcium Ionized Calcium Phosphorus Magnesium Iron TIBC Ferritin Total Bilirubin Direct Bilirubin AST ALT Alkaline Phosphatase Total Creatine Kinase CK-MB (CK-2) Troponin T C-Reactive Protein Serum Total Protein 5.7 L Total Protein Albumin 2.5 L Kjtrr-7-Kusrmxesw 0.5 H Mexmb-2-Sblhafqmj PEP Interpretation see below H Triglycerides LDL Cholesterol Direct HDL Cholesterol Free T4 PTH Intact Urine WBC (Auto) Urine Creatinine Salicylates Acetaminophen Crossmatch 05/02/19 05/02/19 05/02/19 05:57 05:57 11:43 WBC 14.2 H RBC 2.96 L Hgb 8.3 L Hct 26.0 L MCV MCH MCHC RDW 16.8 H Plt Count Lymph % (Auto) [place] % (Auto) Eos % (Auto) Lymph # [place] # Eos # Seg Neutrophils % Seg Neuts % (Manual) Lymphocytes % (Manual) Monocytes % (Manual) Eosinophils % (Manual) Nucleated RBC % Seg Neutrophils # Seg Neutrophils # Man Lymphocytes # (Manual) Monocytes # (Manual) Eosinophils # (Manual) PT INR D-Dimer Heparin Anti-Xa Level POC ABG pH ABG pH POC ABG pCO2 POC ABG pO2 ABG pO2 ABG HCO3 ABG O2 Saturation ABG Base Excess ABG Hemoglobin Oxyhemoglobin Sodium 136 L Potassium 3.5 L Chloride Carbon Dioxide BUN 21 H Creatinine Glucose POC Glucose 108 H Lactic Acid Calcium 11.1 H Ionized Calcium Phosphorus Magnesium Iron TIBC Ferritin Total Bilirubin Direct Bilirubin AST ALT Alkaline Phosphatase Total Creatine Kinase CK-MB (CK-2) Troponin T C-Reactive Protein Serum Total Protein Total Protein Albumin Tudih-7-Cqietsaxi Aadln-8-Rbfwehdxc PEP Interpretation Triglycerides LDL Cholesterol Direct HDL Cholesterol Free T4 PTH Intact Urine WBC (Auto) Urine Creatinine Salicylates Acetaminophen Crossmatch 05/03/19 05/03/19 05/04/19 05:37 05:37 06:49 WBC 12.7 H 11.1 H RBC 3.01 L 3.07 L Hgb 8.3 L 8.6 L Hct 26.1 L 26.6 L MCV MCH MCHC RDW 16.9 H 17.3 H Plt Count Lymph % (Auto) [place] % (Auto) 9.0 H Eos % (Auto) 4.9 H Lymph # [place] # 1.0 H Eos # 0.5 H Seg Neutrophils % Seg Neuts % (Manual) Lymphocytes % (Manual) Monocytes % (Manual) Eosinophils % (Manual) Nucleated RBC % Seg Neutrophils # 7.8 H Seg Neutrophils # Man Lymphocytes # (Manual) Monocytes # (Manual) Eosinophils # (Manual) PT INR D-Dimer Heparin Anti-Xa Level POC ABG pH ABG pH POC ABG pCO2 POC ABG pO2 ABG pO2 ABG HCO3 ABG O2 Saturation ABG Base Excess ABG Hemoglobin Oxyhemoglobin Sodium 135 L Potassium 3.3 L Chloride Carbon Dioxide BUN Creatinine Glucose POC Glucose Lactic Acid Calcium 10.9 H Ionized Calcium Phosphorus Magnesium 1.50 L Iron TIBC Ferritin Total Bilirubin Direct Bilirubin AST ALT Alkaline Phosphatase Total Creatine Kinase CK-MB (CK-2) Troponin T C-Reactive Protein Serum Total Protein Total Protein Albumin Xuukg-1-Ofxqiburv Aigqp-3-Bvqztsjxo PEP Interpretation Triglycerides LDL Cholesterol Direct HDL Cholesterol Free T4 PTH Intact Urine WBC (Auto) Urine Creatinine Salicylates Acetaminophen Crossmatch 05/04/19 05/04/19 05/04/19 06:49 06:49 11:58 WBC RBC Hgb Hct MCV MCH MCHC RDW Plt Count Lymph % (Auto) [place] % (Auto) Eos % (Auto) Lymph # [place] # Eos # Seg Neutrophils % Seg Neuts % (Manual) Lymphocytes % (Manual) Monocytes % (Manual) Eosinophils % (Manual) Nucleated RBC % Seg Neutrophils # Seg Neutrophils # Man Lymphocytes # (Manual) Monocytes # (Manual) Eosinophils # (Manual) PT 15.5 H INR 1.24 H D-Dimer Heparin Anti-Xa Level POC ABG pH ABG pH POC ABG pCO2 POC ABG pO2 ABG pO2 ABG HCO3 ABG O2 Saturation ABG Base Excess ABG Hemoglobin Oxyhemoglobin Sodium Potassium Chloride Carbon Dioxide 19 L BUN Creatinine Glucose POC Glucose 111 H Lactic Acid Calcium 10.7 H Ionized Calcium Phosphorus Magnesium Iron TIBC Ferritin Total Bilirubin Direct Bilirubin AST ALT Alkaline Phosphatase Total Creatine Kinase CK-MB (CK-2) Troponin T C-Reactive Protein Serum Total Protein Total Protein Albumin Uxhlc-7-Sjryslxhc Yseqe-8-Yvcnqnwzq PEP Interpretation Triglycerides LDL Cholesterol Direct HDL Cholesterol Free T4 PTH Intact Urine WBC (Auto) Urine Creatinine Salicylates Acetaminophen Crossmatch 05/05/19 05/05/19 05/07/19 06:14 06:14 05:55 WBC 11.5 H 12.0 H RBC 3.08 L 3.33 L Hgb 8.5 L 9.2 L Hct 26.5 L 28.5 L MCV MCH MCHC RDW 17.1 H 17.6 H Plt Count Lymph % (Auto) [place] % (Auto) Eos % (Auto) 8.2 H Lymph # [place] # Eos # 1.0 H Seg Neutrophils % Seg Neuts % (Manual) Lymphocytes % (Manual) Monocytes % (Manual) Eosinophils % (Manual) Nucleated RBC % Seg Neutrophils # 8.2 H Seg Neutrophils # Man Lymphocytes # (Manual) Monocytes # (Manual) Eosinophils # (Manual) PT INR D-Dimer Heparin Anti-Xa Level POC ABG pH ABG pH POC ABG pCO2 POC ABG pO2 ABG pO2 ABG HCO3 ABG O2 Saturation ABG Base Excess ABG Hemoglobin Oxyhemoglobin Sodium 136 L Potassium Chloride Carbon Dioxide 21 L BUN Creatinine Glucose POC Glucose Lactic Acid Calcium 10.3 H Ionized Calcium Phosphorus Magnesium Iron TIBC Ferritin Total Bilirubin Direct Bilirubin AST ALT Alkaline Phosphatase Total Creatine Kinase CK-MB (CK-2) Troponin T C-Reactive Protein Serum Total Protein Total Protein Albumin Myjka-5-Eonovehws Sjxtf-1-Lekupsnlq PEP Interpretation Triglycerides LDL Cholesterol Direct HDL Cholesterol Free T4 PTH Intact Urine WBC (Auto) Urine Creatinine Salicylates Acetaminophen Crossmatch 05/07/19 05/08/19 05/08/19 05:55 07:27 07:27 WBC 12.5 H RBC 3.50 L Hgb 9.4 L Hct 30.4 L MCV MCH 27 L MCHC 31 L RDW 17.2 H Plt Count Lymph % (Auto) [place] % (Auto) Eos % (Auto) 10.3 H Lymph # [place] # Eos # 1.3 H Seg Neutrophils % Seg Neuts % (Manual) Lymphocytes % (Manual) Monocytes % (Manual) Eosinophils % (Manual) Nucleated RBC % Seg Neutrophils # 8.7 H Seg Neutrophils # Man Lymphocytes # (Manual) Monocytes # (Manual) Eosinophils # (Manual) PT INR D-Dimer Heparin Anti-Xa Level POC ABG pH ABG pH POC ABG pCO2 POC ABG pO2 ABG pO2 ABG HCO3 ABG O2 Saturation ABG Base Excess ABG Hemoglobin Oxyhemoglobin Sodium Potassium 3.5 L Chloride Carbon Dioxide 20 L 20 L BUN Creatinine Glucose POC Glucose Lactic Acid Calcium 10.7 H 10.7 H Ionized Calcium Phosphorus Magnesium Iron TIBC Ferritin Total Bilirubin Direct Bilirubin AST ALT Alkaline Phosphatase Total Creatine Kinase CK-MB (CK-2) Troponin T C-Reactive Protein Serum Total Protein Total Protein Albumin 3.2 L 3.4 L Huysu-2-Rsfiniuma Fpcag-1-Remxoacic PEP Interpretation Triglycerides LDL Cholesterol Direct HDL Cholesterol Free T4 PTH Intact Urine WBC (Auto) Urine Creatinine Salicylates Acetaminophen Crossmatch 05/09/19 05/09/19 05/10/19 05:41 05:41 06:42 WBC 11.7 H RBC 3.27 L Hgb 9.2 L Hct 27.9 L MCV MCH MCHC RDW 17.8 H Plt Count Lymph % (Auto) [place] % (Auto) Eos % (Auto) 14.3 H Lymph # [place] # Eos # 1.7 H Seg Neutrophils % Seg Neuts % (Manual) Lymphocytes % (Manual) Monocytes % (Manual) Eosinophils % (Manual) Nucleated RBC % Seg Neutrophils # Seg Neutrophils # Man Lymphocytes # (Manual) Monocytes # (Manual) Eosinophils # (Manual) PT INR 1.17 H D-Dimer Heparin Anti-Xa Level POC ABG pH ABG pH POC ABG pCO2 POC ABG pO2 ABG pO2 ABG HCO3 ABG O2 Saturation ABG Base Excess ABG Hemoglobin Oxyhemoglobin Sodium 136 L Potassium Chloride Carbon Dioxide 21 L BUN Creatinine Glucose POC Glucose Lactic Acid Calcium 10.6 H Ionized Calcium Phosphorus Magnesium Iron TIBC Ferritin Total Bilirubin Direct Bilirubin AST ALT Alkaline Phosphatase Total Creatine Kinase CK-MB (CK-2) Troponin T C-Reactive Protein Serum Total Protein Total Protein Albumin 3.3 L Tbbsx-4-Xgvydkzwz Bbubg-6-Mgvrhleag PEP Interpretation Triglycerides LDL Cholesterol Direct HDL Cholesterol Free T4 PTH Intact Urine WBC (Auto) Urine Creatinine Salicylates Acetaminophen Crossmatch 05/10/19 05/11/19 05/13/19 06:42 04:40 08:32 WBC 11.8 H RBC 3.48 L Hgb 9.5 L Hct 30.0 L MCV MCH 27 L MCHC RDW 18.0 H Plt Count Lymph % (Auto) [place] % (Auto) Eos % (Auto) Lymph # [place] # Eos # Seg Neutrophils % Seg Neuts % (Manual) 73.0 H Lymphocytes % (Manual) 11.0 L Monocytes % (Manual) Eosinophils % (Manual) 12.0 H Nucleated RBC % Seg Neutrophils # Seg Neutrophils # Man 8.6 H Lymphocytes # (Manual) Monocytes # (Manual) Eosinophils # (Manual) 1.4 H PT INR D-Dimer Heparin Anti-Xa Level POC ABG pH ABG pH POC ABG pCO2 POC ABG pO2 ABG pO2 ABG HCO3 ABG O2 Saturation ABG Base Excess ABG Hemoglobin Oxyhemoglobin Sodium Potassium Chloride Carbon Dioxide 21 L 20 L BUN Creatinine Glucose POC Glucose Lactic Acid Calcium Ionized Calcium Phosphorus Magnesium Iron TIBC Ferritin Total Bilirubin Direct Bilirubin AST ALT Alkaline Phosphatase Total Creatine Kinase CK-MB (CK-2) Troponin T C-Reactive Protein Serum Total Protein Total Protein Albumin Vepup-8-Vqvxjnlwf Cnebq-2-Ocvkirxtq PEP Interpretation Triglycerides LDL Cholesterol Direct HDL Cholesterol Free T4 PTH Intact Urine WBC (Auto) Urine Creatinine Salicylates Acetaminophen Crossmatch 05/13/19 05/14/19 08:32 08:12 WBC RBC Hgb Hct MCV MCH MCHC RDW Plt Count Lymph % (Auto) [place] % (Auto) Eos % (Auto) Lymph # [place] # Eos # Seg Neutrophils % Seg Neuts % (Manual) Lymphocytes % (Manual) Monocytes % (Manual) Eosinophils % (Manual) Nucleated RBC % Seg Neutrophils # Seg Neutrophils # Man Lymphocytes # (Manual) Monocytes # (Manual) Eosinophils # (Manual) PT INR D-Dimer Heparin Anti-Xa Level POC ABG pH ABG pH POC ABG pCO2 POC ABG pO2 ABG pO2 ABG HCO3 ABG O2 Saturation ABG Base Excess ABG Hemoglobin Oxyhemoglobin Sodium Potassium Chloride Carbon Dioxide 17 L 18 L BUN Creatinine Glucose 73 L POC Glucose Lactic Acid Calcium Ionized Calcium Phosphorus Magnesium 1.60 L Iron TIBC Ferritin Total Bilirubin Direct Bilirubin AST ALT Alkaline Phosphatase Total Creatine Kinase CK-MB (CK-2) Troponin T C-Reactive Protein Serum Total Protein Total Protein Albumin 3.3 L Rrvhs-8-Vlikjtegx Wnpax-2-Ovmmdfyhs PEP Interpretation Triglycerides LDL Cholesterol Direct HDL Cholesterol Free T4 PTH Intact Urine WBC (Auto) Urine Creatinine Salicylates Acetaminophen Crossmatch Allied health notes reviewed: nursing
--- NOTE | 2019-05-15 17:16 | Progress Note ---
Assessment and Plan Peripheral neuropathy. Neurology following. Patient will need EMG/MCV to rule out axonal versus demyelinating disease. Workup can be done as an outpatient. Bilateral lower extremity DVTs. Patient will be scheduled for placement of IVC filter. 3 months after discharge, the patient will need to be scheduled for IVC filter removal with repeat ultrasound at that time to evaluate the patient's bilateral lower extremity DVTs. - Acute hypoxic respiratory failure. Was intubated, but now extubated. Now on Room air. Continue BiPAP as clinically indicated. - Atrial fibrillation. Resolved. Continue Metoprolol. Cardiology following. No recurrence of AFib or VT noted for several weeks since resolution of multiple metabolic derangements and thus no plans for initiation of systemic AC or AICD implantation at this time. - Abnormal Lexiscan stress with ejection fraction of 45% S/p LHC this AM which showed normal coronaries, normal EF. - Acute blood loss anemia. Patient with GI bleed secondary to peptic ulcer disease. EGD completed per GI. Continue PRBCs as needed. - GI bleed/peptic ulcer disease. Continue PPI. Transfuse PRBCs as needed. - Sepsis/septic shock. Resolved. Continue to monitor off antibiotics - Ischemic hepatitis/shock liver. Resolved. Viral hepatitis panel negative. - Acute kidney injury. Resolved. Patient's last hemodialysis 04/20/19. Continue to monitor BMP. Avoid nephrotoxic agents. - Toxic metabolic encephalopathy. Resolved. - Swelling both upper ext L>R Doppler US : no DVT LUE - Hypokalemia. Replete potassium as needed. - Thrombocytopenia. Etiology likely secondary to sepsis. Resolved. - Rhabdomyolysis. CK normalized. Full code status Disposition. Awaiting for arrangements for SNF in [facility] Date of service: 05/15/19 Principal diagnosis: Septic Shock; Ac. hypoxemic resp failure; Renzo. PNA; Rhabdomyolysis; RUBEN Interval history: No interval change Not able to walk Able to transfer to wheelchair Objective - Constitutional Vitals: Vital Signs - 12hr 05/15/19 05/15/19 05/15/19 06:08 06:34 07:13 Temperature 97.2 F L Pulse Rate 73 Respiratory 19 18 17 Rate Blood Pressure Blood Pressure 110/69 [Right] O2 Sat by Pulse 96 Oximetry 05/15/19 12:32 Temperature 97.7 F Pulse Rate Respiratory 18 Rate Blood Pressure 114/71 Blood Pressure [Right] O2 Sat by Pulse Oximetry General appearance: Present: no acute distress, well-nourished - EENT Eyes: PERRL, EOM intact ENT: hearing intact, clear oral mucosa Ears: bilateral: normal - Neck Neck: supple, normal ROM - Respiratory Respiratory effort: normal Respiratory: bilateral: CTA - Breasts Breasts: normal - Cardiovascular Rhythm: regular Heart Sounds: Present: S1 & S2. Absent: gallop, rub Extremities: pulses intact, No edema, normal color, Full ROM - Gastrointestinal General gastrointestinal: Present: soft, non-tender, non-distended, normal bowel sounds - Genitourinary Male genitourinary: normal - Integumentary Integumentary: clear, warm, dry - Musculoskeletal Musculoskeletal: 1, strength equal bilaterally - Neurologic Neurologic: moves all extremities - Psychiatric Psychiatric: memory intact, appropriate mood/affect, intact judgment & insight - Labs CBC & Chem 7: 05/13/19 08:32 05/14/19 08:12
[2019-05-16] MEDS: GABAPENTIN 100 MG CAP PO SCH ×4 (05:33→21:30)
[2019-05-16] MEDS: HYDROcodone/ACETAMINOPHEN 5-325 MG TAB PO PRN ×4 (06:08→23:50)
--- NOTE | 2019-05-16 09:31 | Procedure Note ---
Date of procedure: 05/16/19 Pre-op diagnosis: Left antecubital wound Post-op diagnosis: same Procedure: Debridement of left AC wound Description of procedure: Pt was placed semi-recumbent in his bed. Left AC area was prepped and draped. A surgical excisional debridement of necrotic SQ tissue and fascia was performed with a curette. Bleeding was minimal and was controlled with pressure. Pt tolerated the procedure well. The wound was dressed by his nurse. Final wound measurements: 4.5 X 8 X 1.2 cm Anesthesia: none Surgeon: BLAKE LIND Estimated blood loss: minimal Pathology: none Specimen disposition: discarded Condition: stable Disposition: no change
[2019-05-16] MEDS: METOPROLOL SUCCINATE XL 50 MG TAB PO SCH (11:50)
[2019-05-16] MEDS: PANTOPRAZOLE 40 MG TAB PO SCH ×2 (11:50→21:30)
--- NOTE | 2019-05-16 12:48 | Progress Note ---
Assessment and Plan Severe sepsis with shock. Right axilla abscess versus localized pannus/fatty collection. Acute hypoxemic respiratory failure, on mechanical ventilator support. Likely aspiration pneumonia, bilateral. Morbid obesity. Rhabdomyolysis. Acute kidney injury. Leukocytosis. Morbid obesity. Metabolic acidosis. Lactic acidosis. Hypomagnesemia. Elevated serum transaminases/possible shock liver. Acute encephalopathy, toxic metabolic versus anoxic - continue prn BIPAP for increased work of breathing - continue cardiac work-up - will need outpatient PSG - continue aggressive PT/OT as tolerated - continue ST evaluation and advance diet as tolerated - continue prn albuterol treatments - prn oxygen to keep O2 sats > 90% - azotemia per nephrology (non-oliguric) - prn supportive blood transfusions to keep serum Hb > 7.0 - Monitor hemodynamics closely - Transfuse PRBC's to keep HgB > 7g/dL - continue mobility protocols and off loading as tolerated for pressure ulcer prophylaxis - continue to avoid nephrotoxins, adjust all medications for GFR and CRCL - continue GI & VTE prophylaxis with - accuchecks with glycemic control per SSI for target BG of 140-180 mg/dl acutely - continue other care per attending / other consultants ... re-evaluate in am & prn Subjective Date of service: 05/16/19 Principal diagnosis: Septic Shock; Ac. hypoxemic resp failure; Renzo. PNA; Rhabdomyolysis; RUBEN Interval history: Patient is seen today for: Severe sepsis with shock; Acute hypoxemic respiratory failure; Aspiration pneumonia; Morbid obesity; Rhabdomyolysis; Acute kidney injury; Morbid obesity; Elevated serum transaminases/possible shock liver; Acute encephalopathy (Toxic/Met) Seen and examined at bedside; 24hour events reviewed; nursing and respiratory care staff consulted; no adverse overnight events reported to me; resting peacefully in bed; Objective Vital Signs - 12hr 05/16/19 05/16/19 05/16/19 06:08 11:20 11:50 Temperature 97.8 F Pulse Rate 90 Respiratory 18 18 Rate Blood Pressure 122/82 122/68 O2 Sat by Pulse 99 Oximetry Constitutional: alert Eyes: non-icteric ENT: oropharynx moist, other Neck: supple, no lymphadenopathy, no JVD, other (large neck circumference) Effort: normal Ascultation: Bilateral: diminished breath sounds, rales, rhonchi (scant) Percussion: Bilateral: not dull Cardiovascular: regular rate and rhythm, other ( S1,S2) Gastrointestinal: normoactive bowel sounds, soft, non-tender, non-distended, other (obese) Integumentary: normal Extremities: no cyanosis, pink and warm, pulses normal, no ischemia or petechiae Neurologic: normal mental status, non-focal exam (grossly), pupils equal and round, CN II-XII normal, other (very weak, bilateral foot drop) Psychiatric: mood appropriate, affect normal CBC and BMP: 05/13/19 08:32 05/14/19 08:12 ABG, PT/INR, D-dimer: ABG POC ABG pH 7.401 (7.35-7.45) 04/07/19 12:57 ABG pH 7.388 pH Units (7.350-7.450) 04/06/19 05:20 POC ABG pCO2 41.5 (35-45) 04/07/19 12:57 ABG pCO2 38.5 mm Hg 04/06/19 05:20 POC ABG pO2 107 (80-105) H 04/07/19 12:57 ABG pO2 104.0 mm Hg (80.0-90.0) H 04/06/19 05:20 POC ABG HCO3 25.7 (22-26 mml/L) 04/07/19 12:57 POC ABG Total CO2 27 (23-27mmol/L) 04/07/19 12:57 POC ABG O2 Sat 98 04/07/19 12:57 ABG O2 Saturation 97.8 % (95.0-99.0) 04/06/19 05:20 PT/INR, D-dimer PT 14.8 Sec. (12.2-14.9) 05/10/19 06:42 INR 1.17 (0.87-1.13) H 05/10/19 06:42 D-Dimer 4845.98 ng/mlDDU (0-234) H 03/28/19 12:00 Abnormal lab findings: Abnormal Labs 03/16/19 03/16/19 03/16/19 15:32 16:03 16:05 WBC 27.0 H RBC 5.55 H Hgb 15.7 H Hct 47.1 H MCV MCH MCHC RDW Plt Count 75 L Lymph % (Auto) [place] % (Auto) Eos % (Auto) Lymph # [place] # Eos # Seg Neutrophils % Seg Neuts % (Manual) 85.0 H Lymphocytes % (Manual) 2.0 L Monocytes % (Manual) Eosinophils % (Manual) Nucleated RBC % Seg Neutrophils # Seg Neutrophils # Man 23.0 H Lymphocytes # (Manual) 0.5 L Monocytes # (Manual) Eosinophils # (Manual) PT INR D-Dimer Heparin Anti-Xa Level POC ABG pH ABG pH POC ABG pCO2 POC ABG pO2 ABG pO2 ABG HCO3 ABG O2 Saturation ABG Base Excess ABG Hemoglobin Oxyhemoglobin Sodium 127 L Potassium Chloride 87.8 L Carbon Dioxide 17 L BUN 49 H Creatinine 5.8 H Glucose 150 H POC Glucose 118 H Lactic Acid Calcium 6.6 L Ionized Calcium Phosphorus Magnesium 1.10 L Iron TIBC Ferritin Total Bilirubin Direct Bilirubin AST ALT Alkaline Phosphatase Total Creatine Kinase 51486 H CK-MB (CK-2) Troponin T C-Reactive Protein Serum Total Protein Total Protein Albumin Agdps-2-Gmhnhrbpk Trvxs-2-Ctybspktl PEP Interpretation Triglycerides LDL Cholesterol Direct HDL Cholesterol Free T4 PTH Intact Urine WBC (Auto) Urine Creatinine Salicylates Acetaminophen Crossmatch 03/16/19 03/16/19 03/16/19 16:59 17:05 17:05 WBC RBC Hgb Hct MCV MCH MCHC RDW Plt Count Lymph % (Auto) [place] % (Auto) Eos % (Auto) Lymph # [place] # Eos # Seg Neutrophils % Seg Neuts % (Manual) Lymphocytes % (Manual) Monocytes % (Manual) Eosinophils % (Manual) Nucleated RBC % Seg Neutrophils # Seg Neutrophils # Man Lymphocytes # (Manual) Monocytes # (Manual) Eosinophils # (Manual) PT INR D-Dimer Heparin Anti-Xa Level POC ABG pH 7.297 L ABG pH POC ABG pCO2 33.0 L POC ABG pO2 ABG pO2 ABG HCO3 ABG O2 Saturation ABG Base Excess ABG Hemoglobin Oxyhemoglobin Sodium Potassium Chloride Carbon Dioxide BUN Creatinine Glucose POC Glucose Lactic Acid Calcium Ionized Calcium Phosphorus Magnesium Iron TIBC Ferritin Total Bilirubin Direct Bilirubin AST ALT Alkaline Phosphatase Total Creatine Kinase 72257 H CK-MB (CK-2) 83.1 H Troponin T C-Reactive Protein Serum Total Protein Total Protein Albumin Zvuag-9-Iicsgbdoj Gsfgc-4-Prcoqavvo PEP Interpretation Triglycerides LDL Cholesterol Direct HDL Cholesterol Free T4 0.72 L PTH Intact Urine WBC (Auto) Urine Creatinine Salicylates Acetaminophen Crossmatch 03/16/19 03/16/19 03/16/19 17:05 17:05 17:05 WBC RBC Hgb Hct MCV MCH MCHC RDW Plt Count Lymph % (Auto) [place] % (Auto) Eos % (Auto) Lymph # [place] # Eos # Seg Neutrophils % Seg Neuts % (Manual) Lymphocytes % (Manual) Monocytes % (Manual) Eosinophils % (Manual) Nucleated RBC % Seg Neutrophils # Seg Neutrophils # Man Lymphocytes # (Manual) Monocytes # (Manual) Eosinophils # (Manual) PT INR D-Dimer Heparin Anti-Xa Level POC ABG pH ABG pH POC ABG pCO2 POC ABG pO2 ABG pO2 ABG HCO3 ABG O2 Saturation ABG Base Excess ABG Hemoglobin Oxyhemoglobin Sodium Potassium Chloride Carbon Dioxide BUN Creatinine Glucose POC Glucose Lactic Acid 5.10 H* Calcium Ionized Calcium Phosphorus Magnesium Iron TIBC Ferritin Total Bilirubin Direct Bilirubin AST ALT Alkaline Phosphatase Total Creatine Kinase CK-MB (CK-2) Troponin T C-Reactive Protein Serum Total Protein Total Protein Albumin Cpgoy-1-Tijwxstgv Pwsqd-2-Iyltvlapn PEP Interpretation Triglycerides LDL Cholesterol Direct HDL Cholesterol Free T4 PTH Intact Urine WBC (Auto) Urine Creatinine Salicylates < 0.3 L Acetaminophen < 5.0 L Crossmatch 03/16/19 03/16/19 03/16/19 17:05 17:05 20:35 WBC RBC Hgb Hct MCV MCH MCHC RDW Plt Count Lymph % (Auto) [place] % (Auto) Eos % (Auto) Lymph # [place] # Eos # Seg Neutrophils % Seg Neuts % (Manual) Lymphocytes % (Manual) Monocytes % (Manual) Eosinophils % (Manual) Nucleated RBC % Seg Neutrophils # Seg Neutrophils # Man Lymphocytes # (Manual) Monocytes # (Manual) Eosinophils # (Manual) PT 15.9 H INR 1.30 H D-Dimer Heparin Anti-Xa Level POC ABG pH ABG pH POC ABG pCO2 POC ABG pO2 ABG pO2 ABG HCO3 ABG O2 Saturation ABG Base Excess ABG Hemoglobin Oxyhemoglobin Sodium Potassium Chloride Carbon Dioxide BUN Creatinine Glucose POC Glucose Lactic Acid 3.30 H* Calcium Ionized Calcium Phosphorus Magnesium Iron TIBC Ferritin Total Bilirubin 6.20 H Direct Bilirubin 5.9 H AST 800 H ALT 120 H Alkaline Phosphatase Total Creatine Kinase CK-MB (CK-2) Troponin T C-Reactive Protein Serum Total Protein Total Protein 4.4 L Albumin 2.4 L Tmhca-8-Wfxdcamcv Eszea-3-Xjpglqdom PEP Interpretation Triglycerides LDL Cholesterol Direct HDL Cholesterol Free T4 PTH Intact Urine WBC (Auto) Urine Creatinine Salicylates Acetaminophen Crossmatch 03/16/19 03/16/19 03/16/19 21:45 22:32 Unknown WBC RBC Hgb Hct MCV MCH MCHC RDW Plt Count Lymph % (Auto) [place] % (Auto) Eos % (Auto) Lymph # [place] # Eos # Seg Neutrophils % Seg Neuts % (Manual) Lymphocytes % (Manual) Monocytes % (Manual) Eosinophils % (Manual) Nucleated RBC % Seg Neutrophils # Seg Neutrophils # Man Lymphocytes # (Manual) Monocytes # (Manual) Eosinophils # (Manual) PT INR D-Dimer Heparin Anti-Xa Level POC ABG pH ABG pH POC ABG pCO2 POC ABG pO2 ABG pO2 ABG HCO3 ABG O2 Saturation ABG Base Excess ABG Hemoglobin Oxyhemoglobin Sodium Potassium Chloride Carbon Dioxide BUN Creatinine Glucose POC Glucose Lactic Acid 3.30 H* 3.00 H* Calcium Ionized Calcium Phosphorus Magnesium Iron TIBC Ferritin Total Bilirubin Direct Bilirubin AST ALT Alkaline Phosphatase Total Creatine Kinase CK-MB (CK-2) Troponin T 0.047 H D C-Reactive Protein Serum Total Protein Total Protein Albumin Wnioe-7-Nftkalpxu Ewklk-0-Qagecdszr PEP Interpretation Triglycerides 395 H LDL Cholesterol Direct 10 L HDL Cholesterol 7 L Free T4 PTH Intact Urine WBC (Auto) Urine Creatinine Salicylates Acetaminophen Crossmatch 03/17/19 03/17/19 03/17/19 03:45 03:45 03:45 WBC RBC Hgb Hct MCV MCH MCHC RDW Plt Count Lymph % (Auto) [place] % (Auto) Eos % (Auto) Lymph # [place] # Eos # Seg Neutrophils % Seg Neuts % (Manual) Lymphocytes % (Manual) Monocytes % (Manual) Eosinophils % (Manual) Nucleated RBC % Seg Neutrophils # Seg Neutrophils # Man Lymphocytes # (Manual) Monocytes # (Manual) Eosinophils # (Manual) PT INR D-Dimer Heparin Anti-Xa Level POC ABG pH ABG pH POC ABG pCO2 POC ABG pO2 ABG pO2 ABG HCO3 ABG O2 Saturation ABG Base Excess ABG Hemoglobin Oxyhemoglobin Sodium 131 L Potassium Chloride 88.9 L Carbon Dioxide BUN 53 H Creatinine 7.1 H Glucose POC Glucose Lactic Acid 4.10 H* Calcium 5.4 L* D Ionized Calcium Phosphorus 7.30 H Magnesium 1.60 L Iron TIBC Ferritin Total Bilirubin 5.90 H Direct Bilirubin AST 801 H ALT 109 H Alkaline Phosphatase Total Creatine Kinase 10034 H 18135 H CK-MB (CK-2) 41.5 H Troponin T 0.054 H C-Reactive Protein Serum Total Protein Total Protein 4.5 L Albumin 2.0 L Eaxqt-2-Ytcarmjws Zfqdo-6-Uidycewpd PEP Interpretation Triglycerides LDL Cholesterol Direct HDL Cholesterol Free T4 PTH Intact Urine WBC (Auto) Urine Creatinine Salicylates Acetaminophen Crossmatch 03/17/19 03/17/19 03/17/19 05:47 07:16 07:16 WBC RBC Hgb Hct MCV MCH MCHC RDW Plt Count Lymph % (Auto) [place] % (Auto) Eos % (Auto) Lymph # [place] # Eos # Seg Neutrophils % Seg Neuts % (Manual) Lymphocytes % (Manual) Monocytes % (Manual) Eosinophils % (Manual) Nucleated RBC % Seg Neutrophils # Seg Neutrophils # Man Lymphocytes # (Manual) Monocytes # (Manual) Eosinophils # (Manual) PT INR D-Dimer Heparin Anti-Xa Level POC ABG pH 7.193 L ABG pH POC ABG pCO2 45.2 H POC ABG pO2 65 L ABG pO2 ABG HCO3 ABG O2 Saturation ABG Base Excess ABG Hemoglobin Oxyhemoglobin Sodium Potassium Chloride Carbon Dioxide BUN Creatinine Glucose POC Glucose Lactic Acid 5.50 H* Calcium Ionized Calcium Phosphorus Magnesium Iron TIBC Ferritin Total Bilirubin Direct Bilirubin AST ALT Alkaline Phosphatase Total Creatine Kinase 79733 H CK-MB (CK-2) 54.3 H Troponin T 0.058 H C-Reactive Protein Serum Total Protein Total Protein Albumin Feclu-5-Vflsvoqel Jbtgj-7-Ckcfwbbdv PEP Interpretation Triglycerides LDL Cholesterol Direct HDL Cholesterol Free T4 PTH Intact Urine WBC (Auto) Urine Creatinine Salicylates Acetaminophen Crossmatch 03/17/19 03/17/19 03/17/19 11:52 12:51 13:01 WBC RBC Hgb Hct MCV MCH MCHC RDW Plt Count Lymph % (Auto) [place] % (Auto) Eos % (Auto) Lymph # [place] # Eos # Seg Neutrophils % Seg Neuts % (Manual) Lymphocytes % (Manual) Monocytes % (Manual) Eosinophils % (Manual) Nucleated RBC % Seg Neutrophils # Seg Neutrophils # Man Lymphocytes # (Manual) Monocytes # (Manual) Eosinophils # (Manual) PT INR D-Dimer Heparin Anti-Xa Level POC ABG pH 7.154 L ABG pH POC ABG pCO2 34.3 L POC ABG pO2 73 L ABG pO2 ABG HCO3 ABG O2 Saturation ABG Base Excess ABG Hemoglobin Oxyhemoglobin Sodium Potassium Chloride Carbon Dioxide BUN Creatinine Glucose POC Glucose 60 L Lactic Acid 8.20 H* Calcium Ionized Calcium Phosphorus Magnesium Iron TIBC Ferritin Total Bilirubin Direct Bilirubin AST ALT Alkaline Phosphatase Total Creatine Kinase CK-MB (CK-2) Troponin T C-Reactive Protein Serum Total Protein Total Protein Albumin Mmgww-5-Dmaumxfoi Xsavj-3-Xldvzybgs PEP Interpretation Triglycerides LDL Cholesterol Direct HDL Cholesterol Free T4 PTH Intact Urine WBC (Auto) Urine Creatinine Salicylates Acetaminophen Crossmatch 03/17/19 03/17/19 03/17/19 14:37 14:37 14:37 WBC 29.3 H RBC Hgb Hct MCV MCH MCHC RDW 15.8 H Plt Count 45 L Lymph % (Auto) [place] % (Auto) Eos % (Auto) Lymph # [place] # Eos # Seg Neutrophils % Seg Neuts % (Manual) 81.0 H Lymphocytes % (Manual) 1.0 L Monocytes % (Manual) 15.0 H Eosinophils % (Manual) Nucleated RBC % Seg Neutrophils # Seg Neutrophils # Man 23.7 H Lymphocytes # (Manual) 0.3 L Monocytes # (Manual) 4.4 H Eosinophils # (Manual) PT INR D-Dimer Heparin Anti-Xa Level POC ABG pH ABG pH POC ABG pCO2 POC ABG pO2 ABG pO2 ABG HCO3 ABG O2 Saturation ABG Base Excess ABG Hemoglobin Oxyhemoglobin Sodium Potassium Chloride Carbon Dioxide BUN Creatinine Glucose POC Glucose Lactic Acid 4.90 H* Calcium Ionized Calcium Phosphorus Magnesium Iron TIBC Ferritin Total Bilirubin Direct Bilirubin AST ALT Alkaline Phosphatase Total Creatine Kinase CK-MB (CK-2) Troponin T C-Reactive Protein 24.90 H Serum Total Protein Total Protein Albumin Ylvxt-2-Ssikrbnne Bxogq-4-Sgilyoxge PEP Interpretation Triglycerides LDL Cholesterol Direct HDL Cholesterol Free T4 PTH Intact Urine WBC (Auto) Urine Creatinine Salicylates Acetaminophen Crossmatch 03/17/19 03/17/19 03/17/19 16:05 16:05 17:02 WBC RBC Hgb Hct MCV MCH MCHC RDW Plt Count Lymph % (Auto) [place] % (Auto) Eos % (Auto) Lymph # [place] # Eos # Seg Neutrophils % Seg Neuts % (Manual) Lymphocytes % (Manual) Monocytes % (Manual) Eosinophils % (Manual) Nucleated RBC % Seg Neutrophils # Seg Neutrophils # Man Lymphocytes # (Manual) Monocytes # (Manual) Eosinophils # (Manual) PT INR D-Dimer Heparin Anti-Xa Level POC ABG pH 7.183 L ABG pH POC ABG pCO2 POC ABG pO2 65 L ABG pO2 ABG HCO3 ABG O2 Saturation ABG Base Excess ABG Hemoglobin Oxyhemoglobin Sodium Potassium Chloride Carbon Dioxide BUN Creatinine Glucose POC Glucose Lactic Acid Calcium Ionized Calcium Phosphorus Magnesium Iron TIBC Ferritin Total Bilirubin Direct Bilirubin AST ALT Alkaline Phosphatase Total Creatine Kinase CK-MB (CK-2) Troponin T C-Reactive Protein Serum Total Protein Total Protein Albumin Fnlyi-1-Hrcgvijng Xsrtq-1-Gwtqioooe PEP Interpretation Triglycerides LDL Cholesterol Direct HDL Cholesterol Free T4 PTH Intact Urine WBC (Auto) 30.0 H Urine Creatinine 106.6 H Salicylates Acetaminophen Crossmatch 03/18/19 03/18/19 03/18/19 05:12 05:16 05:53 WBC RBC Hgb Hct MCV MCH MCHC RDW Plt Count Lymph % (Auto) [place] % (Auto) Eos % (Auto) Lymph # [place] # Eos # Seg Neutrophils % Seg Neuts % (Manual) Lymphocytes % (Manual) Monocytes % (Manual) Eosinophils % (Manual) Nucleated RBC % Seg Neutrophils # Seg Neutrophils # Man Lymphocytes # (Manual) Monocytes # (Manual) Eosinophils # (Manual) PT INR D-Dimer Heparin Anti-Xa Level POC ABG pH 7.257 L ABG pH POC ABG pCO2 31.6 L POC ABG pO2 69 L ABG pO2 ABG HCO3 ABG O2 Saturation ABG Base Excess ABG Hemoglobin Oxyhemoglobin Sodium Potassium Chloride Carbon Dioxide BUN Creatinine Glucose POC Glucose 141 H Lactic Acid 5.00 H* Calcium Ionized Calcium Phosphorus Magnesium Iron TIBC Ferritin Total Bilirubin Direct Bilirubin AST ALT Alkaline Phosphatase Total Creatine Kinase CK-MB (CK-2) Troponin T C-Reactive Protein Serum Total Protein Total Protein Albumin Hmvfm-9-Iuvufmlnc Zemrf-6-Awaqnzpzu PEP Interpretation Triglycerides LDL Cholesterol Direct HDL Cholesterol Free T4 PTH Intact Urine WBC (Auto) Urine Creatinine Salicylates Acetaminophen Crossmatch 03/18/19 03/18/19 03/18/19 06:57 08:40 08:40 WBC 31.7 H RBC Hgb Hct MCV MCH MCHC RDW 15.5 H Plt Count 35 L Lymph % (Auto) [place] % (Auto) Eos % (Auto) Lymph # [place] # Eos # Seg Neutrophils % Seg Neuts % (Manual) Lymphocytes % (Manual) Monocytes % (Manual) Eosinophils % (Manual) Nucleated RBC % Seg Neutrophils # Seg Neutrophils # Man Lymphocytes # (Manual) Monocytes # (Manual) Eosinophils # (Manual) PT INR D-Dimer Heparin Anti-Xa Level POC ABG pH ABG pH POC ABG pCO2 POC ABG pO2 ABG pO2 ABG HCO3 ABG O2 Saturation ABG Base Excess ABG Hemoglobin Oxyhemoglobin Sodium 132 L Potassium 5.5 H D Chloride 88.5 L Carbon Dioxide 18 L BUN 71 H Creatinine 8.1 H Glucose 205 H POC Glucose Lactic Acid 5.00 H* Calcium 4.1 L* D Ionized Calcium Phosphorus Magnesium 2.40 H Iron TIBC Ferritin Total Bilirubin 7.50 H Direct Bilirubin AST 1088 H ALT 159 H Alkaline Phosphatase 190 H Total Creatine Kinase 767690 H CK-MB (CK-2) Troponin T C-Reactive Protein Serum Total Protein Total Protein 4.7 L Albumin 1.8 L Fuqdy-7-Trnvjjnlr Khqjj-6-Bjrppduzr PEP Interpretation Triglycerides LDL Cholesterol Direct HDL Cholesterol Free T4 PTH Intact Urine WBC (Auto) Urine Creatinine Salicylates Acetaminophen Crossmatch 03/18/19 03/18/19 03/18/19 12:33 12:50 13:19 WBC RBC Hgb Hct MCV MCH MCHC RDW Plt Count Lymph % (Auto) [place] % (Auto) Eos % (Auto) Lymph # [place] # Eos # Seg Neutrophils % Seg Neuts % (Manual) Lymphocytes % (Manual) Monocytes % (Manual) Eosinophils % (Manual) Nucleated RBC % Seg Neutrophils # Seg Neutrophils # Man Lymphocytes # (Manual) Monocytes # (Manual) Eosinophils # (Manual) PT INR D-Dimer Heparin Anti-Xa Level POC ABG pH 7.282 L ABG pH POC ABG pCO2 POC ABG pO2 67 L ABG pO2 ABG HCO3 ABG O2 Saturation ABG Base Excess ABG Hemoglobin Oxyhemoglobin Sodium Potassium Chloride Carbon Dioxide BUN Creatinine Glucose POC Glucose 129 H Lactic Acid 3.30 H* Calcium Ionized Calcium Phosphorus Magnesium Iron TIBC Ferritin Total Bilirubin Direct Bilirubin AST ALT Alkaline Phosphatase Total Creatine Kinase CK-MB (CK-2) Troponin T C-Reactive Protein Serum Total Protein Total Protein Albumin Kvyqb-1-Oaeqmebei Onwxz-1-Jbjemewvm PEP Interpretation Triglycerides LDL Cholesterol Direct HDL Cholesterol Free T4 PTH Intact Urine WBC (Auto) Urine Creatinine Salicylates Acetaminophen Crossmatch 03/18/19 03/18/19 03/18/19 13:19 16:50 18:11 WBC RBC Hgb Hct MCV MCH MCHC RDW Plt Count Lymph % (Auto) [place] % (Auto) Eos % (Auto) Lymph # [place] # Eos # Seg Neutrophils % Seg Neuts % (Manual) Lymphocytes % (Manual) Monocytes % (Manual) Eosinophils % (Manual) Nucleated RBC % Seg Neutrophils # Seg Neutrophils # Man Lymphocytes # (Manual) Monocytes # (Manual) Eosinophils # (Manual) PT INR D-Dimer Heparin Anti-Xa Level POC ABG pH ABG pH POC ABG pCO2 POC ABG pO2 59 L ABG pO2 ABG HCO3 ABG O2 Saturation ABG Base Excess ABG Hemoglobin Oxyhemoglobin Sodium Potassium Chloride Carbon Dioxide BUN Creatinine Glucose POC Glucose 151 H Lactic Acid Calcium 4.2 L* Ionized Calcium Phosphorus Magnesium Iron TIBC Ferritin Total Bilirubin Direct Bilirubin AST ALT Alkaline Phosphatase Total Creatine Kinase 805461 H CK-MB (CK-2) Troponin T C-Reactive Protein Serum Total Protein Total Protein Albumin Jdhtb-0-Nkkkvluxw Cjwgl-0-Ooiusrfkg PEP Interpretation Triglycerides LDL Cholesterol Direct HDL Cholesterol Free T4 PTH Intact Urine WBC (Auto) Urine Creatinine Salicylates Acetaminophen Crossmatch 03/18/19 03/18/19 03/19/19 18:20 23:39 01:42 WBC RBC Hgb Hct MCV MCH MCHC RDW Plt Count Lymph % (Auto) [place] % (Auto) Eos % (Auto) Lymph # [place] # Eos # Seg Neutrophils % Seg Neuts % (Manual) Lymphocytes % (Manual) Monocytes % (Manual) Eosinophils % (Manual) Nucleated RBC % Seg Neutrophils # Seg Neutrophils # Man Lymphocytes # (Manual) Monocytes # (Manual) Eosinophils # (Manual) PT INR D-Dimer Heparin Anti-Xa Level POC ABG pH 7.345 L ABG pH 7.285 L POC ABG pCO2 POC ABG pO2 59 L ABG pO2 44.0 L ABG HCO3 ABG O2 Saturation 70.9 L ABG Base Excess -5.7 L ABG Hemoglobin 11.9 L Oxyhemoglobin 69.6 L Sodium Potassium Chloride Carbon Dioxide BUN Creatinine Glucose POC Glucose 152 H Lactic Acid Calcium Ionized Calcium Phosphorus Magnesium Iron TIBC Ferritin Total Bilirubin Direct Bilirubin AST ALT Alkaline Phosphatase Total Creatine Kinase CK-MB (CK-2) Troponin T C-Reactive Protein Serum Total Protein Total Protein Albumin Lgdto-0-Zbznlfodr Owsne-6-Fnqqvdyct PEP Interpretation Triglycerides LDL Cholesterol Direct HDL Cholesterol Free T4 PTH Intact Urine WBC (Auto) Urine Creatinine Salicylates Acetaminophen Crossmatch 03/19/19 03/19/19 03/19/19 04:00 04:00 05:35 WBC 36.5 H RBC Hgb Hct MCV MCH MCHC RDW 15.8 H Plt Count 35 L Lymph % (Auto) [place] % (Auto) Eos % (Auto) Lymph # [place] # Eos # Seg Neutrophils % Seg Neuts % (Manual) Lymphocytes % (Manual) Monocytes % (Manual) Eosinophils % (Manual) Nucleated RBC % Seg Neutrophils # Seg Neutrophils # Man Lymphocytes # (Manual) Monocytes # (Manual) Eosinophils # (Manual) PT INR D-Dimer Heparin Anti-Xa Level POC ABG pH ABG pH 7.265 L POC ABG pCO2 POC ABG pO2 ABG pO2 35.4 L* ABG HCO3 ABG O2 Saturation 54.4 L ABG Base Excess -6.7 L ABG Hemoglobin 12.9 L Oxyhemoglobin 53.4 L Sodium 132 L Potassium 5.7 H Chloride 89.8 L Carbon Dioxide 19 L BUN 62 H Creatinine 6.4 H Glucose 151 H POC Glucose Lactic Acid Calcium 5.2 L* D Ionized Calcium Phosphorus Magnesium Iron TIBC Ferritin Total Bilirubin 7.80 H Direct Bilirubin AST 682 H ALT 130 H Alkaline Phosphatase 167 H Total Creatine Kinase CK-MB (CK-2) Troponin T C-Reactive Protein Serum Total Protein Total Protein 4.8 L Albumin 2.3 L Sygav-8-Stnsndjxy Vgjsb-9-Zkvuickrl PEP Interpretation Triglycerides LDL Cholesterol Direct HDL Cholesterol Free T4 PTH Intact Urine WBC (Auto) Urine Creatinine Salicylates Acetaminophen Crossmatch 03/19/19 03/19/19 03/19/19 05:49 09:16 09:50 WBC RBC Hgb Hct MCV MCH MCHC RDW Plt Count Lymph % (Auto) [place] % (Auto) Eos % (Auto) Lymph # [place] # Eos # Seg Neutrophils % Seg Neuts % (Manual) Lymphocytes % (Manual) Monocytes % (Manual) Eosinophils % (Manual) Nucleated RBC % Seg Neutrophils # Seg Neutrophils # Man Lymphocytes # (Manual) Monocytes # (Manual) Eosinophils # (Manual) PT INR D-Dimer Heparin Anti-Xa Level POC ABG pH 7.222 L ABG pH POC ABG pCO2 56.6 H POC ABG pO2 ABG pO2 ABG HCO3 ABG O2 Saturation ABG Base Excess ABG Hemoglobin Oxyhemoglobin Sodium Potassium Chloride Carbon Dioxide BUN Creatinine Glucose POC Glucose 154 H Lactic Acid 2.70 H* Calcium Ionized Calcium Phosphorus Magnesium Iron TIBC Ferritin Total Bilirubin Direct Bilirubin AST ALT Alkaline Phosphatase Total Creatine Kinase CK-MB (CK-2) Troponin T C-Reactive Protein Serum Total Protein Total Protein Albumin Vguif-2-Ovywrcmdq Jomzf-5-Qkzecrluf PEP Interpretation Triglycerides LDL Cholesterol Direct HDL Cholesterol Free T4 PTH Intact Urine WBC (Auto) Urine Creatinine Salicylates Acetaminophen Crossmatch 03/19/19 03/19/19 03/19/19 09:50 11:28 17:58 WBC RBC Hgb Hct MCV MCH MCHC RDW Plt Count Lymph % (Auto) [place] % (Auto) Eos % (Auto) Lymph # [place] # Eos # Seg Neutrophils % Seg Neuts % (Manual) Lymphocytes % (Manual) Monocytes % (Manual) Eosinophils % (Manual) Nucleated RBC % Seg Neutrophils # Seg Neutrophils # Man Lymphocytes # (Manual) Monocytes # (Manual) Eosinophils # (Manual) PT INR D-Dimer Heparin Anti-Xa Level POC ABG pH 7.250 L ABG pH POC ABG pCO2 52.6 H POC ABG pO2 ABG pO2 ABG HCO3 ABG O2 Saturation ABG Base Excess ABG Hemoglobin Oxyhemoglobin Sodium Potassium Chloride Carbon Dioxide BUN Creatinine Glucose POC Glucose 160 H Lactic Acid Calcium Ionized Calcium Phosphorus Magnesium Iron TIBC Ferritin Total Bilirubin Direct Bilirubin AST ALT Alkaline Phosphatase Total Creatine Kinase 03816 H CK-MB (CK-2) Troponin T C-Reactive Protein Serum Total Protein Total Protein Albumin Hgofg-9-Bvrkjzpie Vhsin-4-Huzgnabzj PEP Interpretation Triglycerides LDL Cholesterol Direct HDL Cholesterol Free T4 PTH Intact Urine WBC (Auto) Urine Creatinine Salicylates Acetaminophen Crossmatch 03/19/19 03/19/19 03/20/19 19:48 21:03 02:16 WBC RBC Hgb Hct MCV MCH MCHC RDW Plt Count Lymph % (Auto) [place] % (Auto) Eos % (Auto) Lymph # [place] # Eos # Seg Neutrophils % Seg Neuts % (Manual) Lymphocytes % (Manual) Monocytes % (Manual) Eosinophils % (Manual) Nucleated RBC % Seg Neutrophils # Seg Neutrophils # Man Lymphocytes # (Manual) Monocytes # (Manual) Eosinophils # (Manual) PT INR D-Dimer Heparin Anti-Xa Level POC ABG pH 7.279 L ABG pH POC ABG pCO2 50.3 H POC ABG pO2 129 H ABG pO2 ABG HCO3 ABG O2 Saturation ABG Base Excess ABG Hemoglobin Oxyhemoglobin Sodium Potassium Chloride Carbon Dioxide BUN Creatinine Glucose POC Glucose 119 H 119 H Lactic Acid Calcium Ionized Calcium Phosphorus Magnesium Iron TIBC Ferritin Total Bilirubin Direct Bilirubin AST ALT Alkaline Phosphatase Total Creatine Kinase CK-MB (CK-2) Troponin T C-Reactive Protein Serum Total Protein Total Protein Albumin Whway-6-Muyfkyoia Czcwb-1-Vmujxcpnq PEP Interpretation Triglycerides LDL Cholesterol Direct HDL Cholesterol Free T4 PTH Intact Urine WBC (Auto) Urine Creatinine Salicylates Acetaminophen Crossmatch 03/20/19 03/20/19 03/20/19 04:23 05:05 09:30 WBC 36.3 H RBC Hgb Hct MCV MCH MCHC RDW 15.5 H Plt Count 29 L Lymph % (Auto) [place] % (Auto) Eos % (Auto) Lymph # [place] # Eos # Seg Neutrophils % Seg Neuts % (Manual) Lymphocytes % (Manual) Monocytes % (Manual) Eosinophils % (Manual) Nucleated RBC % Seg Neutrophils # Seg Neutrophils # Man Lymphocytes # (Manual) Monocytes # (Manual) Eosinophils # (Manual) PT INR D-Dimer Heparin Anti-Xa Level POC ABG pH ABG pH POC ABG pCO2 POC ABG pO2 280 H ABG pO2 ABG HCO3 ABG O2 Saturation ABG Base Excess ABG Hemoglobin Oxyhemoglobin Sodium Potassium Chloride Carbon Dioxide BUN Creatinine Glucose POC Glucose 115 H Lactic Acid Calcium Ionized Calcium Phosphorus Magnesium Iron TIBC Ferritin Total Bilirubin Direct Bilirubin AST ALT Alkaline Phosphatase Total Creatine Kinase CK-MB (CK-2) Troponin T C-Reactive Protein Serum Total Protein Total Protein Albumin Txfkw-3-Hdvkqbptf Miplg-6-Tvghlktvn PEP Interpretation Triglycerides LDL Cholesterol Direct HDL Cholesterol Free T4 PTH Intact Urine WBC (Auto) Urine Creatinine Salicylates Acetaminophen Crossmatch 03/20/19 03/20/19 03/20/19 09:30 09:30 11:34 WBC RBC Hgb Hct MCV MCH MCHC RDW Plt Count Lymph % (Auto) [place] % (Auto) Eos % (Auto) Lymph # [place] # Eos # Seg Neutrophils % Seg Neuts % (Manual) Lymphocytes % (Manual) Monocytes % (Manual) Eosinophils % (Manual) Nucleated RBC % Seg Neutrophils # Seg Neutrophils # Man Lymphocytes # (Manual) Monocytes # (Manual) Eosinophils # (Manual) PT INR D-Dimer Heparin Anti-Xa Level POC ABG pH ABG pH POC ABG pCO2 POC ABG pO2 ABG pO2 ABG HCO3 ABG O2 Saturation ABG Base Excess ABG Hemoglobin Oxyhemoglobin Sodium 131 L Potassium Chloride 92.3 L Carbon Dioxide 20 L BUN 68 H Creatinine 6.1 H Glucose 164 H POC Glucose 141 H Lactic Acid Calcium 5.3 L* Ionized Calcium Phosphorus Magnesium Iron TIBC Ferritin Total Bilirubin 9.50 H Direct Bilirubin AST 381 H ALT 116 H Alkaline Phosphatase 255 H Total Creatine Kinase 56594 H CK-MB (CK-2) Troponin T C-Reactive Protein Serum Total Protein Total Protein 5.1 L Albumin 2.3 L Ydfik-0-Xrjkzakmk Llapm-8-Xhpraxaya PEP Interpretation Triglycerides LDL Cholesterol Direct HDL Cholesterol Free T4 PTH Intact Urine WBC (Auto) Urine Creatinine Salicylates Acetaminophen Crossmatch 03/20/19 03/20/19 03/20/19 14:41 14:45 18:50 WBC RBC Hgb Hct MCV MCH MCHC RDW Plt Count Lymph % (Auto) [place] % (Auto) Eos % (Auto) Lymph # [place] # Eos # Seg Neutrophils % Seg Neuts % (Manual) Lymphocytes % (Manual) Monocytes % (Manual) Eosinophils % (Manual) Nucleated RBC % Seg Neutrophils # Seg Neutrophils # Man Lymphocytes # (Manual) Monocytes # (Manual) Eosinophils # (Manual) PT INR D-Dimer Heparin Anti-Xa Level POC ABG pH ABG pH POC ABG pCO2 POC ABG pO2 ABG pO2 ABG HCO3 ABG O2 Saturation ABG Base Excess ABG Hemoglobin Oxyhemoglobin Sodium Potassium Chloride Carbon Dioxide BUN Creatinine Glucose POC Glucose 117 H Lactic Acid 2.90 H* Calcium Ionized Calcium Phosphorus Magnesium Iron TIBC Ferritin Total Bilirubin Direct Bilirubin AST ALT Alkaline Phosphatase Total Creatine Kinase CK-MB (CK-2) Troponin T C-Reactive Protein 13.30 H Serum Total Protein Total Protein Albumin Xiupm-3-Hlobbcrog Dquvd-3-Wpgxcimlx PEP Interpretation Triglycerides LDL Cholesterol Direct HDL Cholesterol Free T4 PTH Intact Urine WBC (Auto) Urine Creatinine Salicylates Acetaminophen Crossmatch 03/20/19 03/21/19 03/21/19 21:55 04:26 04:26 WBC 37.8 H RBC Hgb Hct MCV MCH MCHC RDW 15.4 H Plt Count 36 L Lymph % (Auto) [place] % (Auto) Eos % (Auto) Lymph # [place] # Eos # Seg Neutrophils % Seg Neuts % (Manual) 93.0 H Lymphocytes % (Manual) 3.0 L Monocytes % (Manual) Eosinophils % (Manual) Nucleated RBC % 1.0 H Seg Neutrophils # 34.6 H Seg Neutrophils # Man 35.2 H Lymphocytes # (Manual) 1.1 L Monocytes # (Manual) Eosinophils # (Manual) PT INR D-Dimer Heparin Anti-Xa Level POC ABG pH ABG pH POC ABG pCO2 POC ABG pO2 ABG pO2 ABG HCO3 ABG O2 Saturation ABG Base Excess ABG Hemoglobin Oxyhemoglobin Sodium 131 L Potassium Chloride 90.7 L Carbon Dioxide 21 L BUN 69 H Creatinine 5.7 H Glucose 170 H POC Glucose 128 H Lactic Acid Calcium 6.1 L D Ionized Calcium Phosphorus Magnesium Iron TIBC Ferritin Total Bilirubin 9.50 H Direct Bilirubin AST 308 H ALT 124 H Alkaline Phosphatase 327 H Total Creatine Kinase 85250 H CK-MB (CK-2) Troponin T C-Reactive Protein Serum Total Protein Total Protein 5.7 L Albumin 2.6 L Wzknz-8-Qitzzikga Jopzd-4-Dnnafehkl PEP Interpretation Triglycerides LDL Cholesterol Direct HDL Cholesterol Free T4 PTH Intact Urine WBC (Auto) Urine Creatinine Salicylates Acetaminophen Crossmatch 03/21/19 03/21/19 03/21/19 05:17 05:39 08:29 WBC RBC Hgb Hct MCV MCH MCHC RDW Plt Count Lymph % (Auto) [place] % (Auto) Eos % (Auto) Lymph # [place] # Eos # Seg Neutrophils % Seg Neuts % (Manual) Lymphocytes % (Manual) Monocytes % (Manual) Eosinophils % (Manual) Nucleated RBC % Seg Neutrophils # Seg Neutrophils # Man Lymphocytes # (Manual) Monocytes # (Manual) Eosinophils # (Manual) PT INR D-Dimer Heparin Anti-Xa Level POC ABG pH ABG pH POC ABG pCO2 POC ABG pO2 209 H ABG pO2 ABG HCO3 ABG O2 Saturation ABG Base Excess ABG Hemoglobin Oxyhemoglobin Sodium Potassium Chloride Carbon Dioxide BUN Creatinine Glucose POC Glucose 145 H Lactic Acid Calcium Ionized Calcium Phosphorus Magnesium Iron TIBC Ferritin Total Bilirubin Direct Bilirubin AST ALT Alkaline Phosphatase Total Creatine Kinase 72096 H CK-MB (CK-2) Troponin T C-Reactive Protein Serum Total Protein Total Protein Albumin Mzfct-0-Apnffujqh Flwem-7-Hhdikvehg PEP Interpretation Triglycerides LDL Cholesterol Direct HDL Cholesterol Free T4 PTH Intact Urine WBC (Auto) Urine Creatinine Salicylates Acetaminophen Crossmatch 03/21/19 03/21/19 03/21/19 08:29 11:43 12:00 WBC RBC Hgb Hct MCV MCH MCHC RDW Plt Count Lymph % (Auto) [place] % (Auto) Eos % (Auto) Lymph # [place] # Eos # Seg Neutrophils % Seg Neuts % (Manual) Lymphocytes % (Manual) Monocytes % (Manual) Eosinophils % (Manual) Nucleated RBC % Seg Neutrophils # Seg Neutrophils # Man Lymphocytes # (Manual) Monocytes # (Manual) Eosinophils # (Manual) PT INR D-Dimer Heparin Anti-Xa Level POC ABG pH ABG pH POC ABG pCO2 POC ABG pO2 ABG pO2 ABG HCO3 ABG O2 Saturation ABG Base Excess ABG Hemoglobin Oxyhemoglobin Sodium Potassium Chloride Carbon Dioxide BUN Creatinine Glucose POC Glucose 123 H Lactic Acid 2.60 H* 2.20 H* Calcium Ionized Calcium Phosphorus Magnesium Iron TIBC Ferritin Total Bilirubin Direct Bilirubin AST ALT Alkaline Phosphatase Total Creatine Kinase CK-MB (CK-2) Troponin T C-Reactive Protein Serum Total Protein Total Protein Albumin Thxlc-1-Zlqlksgpm Duylp-3-Syyfyadda PEP Interpretation Triglycerides LDL Cholesterol Direct HDL Cholesterol Free T4 PTH Intact Urine WBC (Auto) Urine Creatinine Salicylates Acetaminophen Crossmatch 03/21/19 03/21/19 03/21/19 14:11 18:28 19:32 WBC RBC Hgb Hct MCV MCH MCHC RDW Plt Count Lymph % (Auto) [place] % (Auto) Eos % (Auto) Lymph # [place] # Eos # Seg Neutrophils % Seg Neuts % (Manual) Lymphocytes % (Manual) Monocytes % (Manual) Eosinophils % (Manual) Nucleated RBC % Seg Neutrophils # Seg Neutrophils # Man Lymphocytes # (Manual) Monocytes # (Manual) Eosinophils # (Manual) PT INR D-Dimer Heparin Anti-Xa Level POC ABG pH 7.293 L ABG pH POC ABG pCO2 POC ABG pO2 ABG pO2 ABG HCO3 ABG O2 Saturation ABG Base Excess ABG Hemoglobin Oxyhemoglobin Sodium Potassium Chloride Carbon Dioxide BUN Creatinine Glucose POC Glucose 153 H Lactic Acid 2.10 H* Calcium Ionized Calcium Phosphorus Magnesium Iron TIBC Ferritin Total Bilirubin Direct Bilirubin AST ALT Alkaline Phosphatase Total Creatine Kinase CK-MB (CK-2) Troponin T C-Reactive Protein Serum Total Protein Total Protein Albumin Hxlxy-1-Zpfysloex Rvzof-0-Dfakbjxja PEP Interpretation Triglycerides LDL Cholesterol Direct HDL Cholesterol Free T4 PTH Intact Urine WBC (Auto) Urine Creatinine Salicylates Acetaminophen Crossmatch 03/21/19 03/22/19 03/22/19 23:38 05:08 05:51 WBC RBC Hgb Hct MCV MCH MCHC RDW Plt Count Lymph % (Auto) [place] % (Auto) Eos % (Auto) Lymph # [place] # Eos # Seg Neutrophils % Seg Neuts % (Manual) Lymphocytes % (Manual) Monocytes % (Manual) Eosinophils % (Manual) Nucleated RBC % Seg Neutrophils # Seg Neutrophils # Man Lymphocytes # (Manual) Monocytes # (Manual) Eosinophils # (Manual) PT INR D-Dimer Heparin Anti-Xa Level POC ABG pH 7.283 L ABG pH POC ABG pCO2 POC ABG pO2 53 L ABG pO2 ABG HCO3 ABG O2 Saturation ABG Base Excess ABG Hemoglobin Oxyhemoglobin Sodium Potassium Chloride Carbon Dioxide BUN Creatinine Glucose POC Glucose 149 H 131 H Lactic Acid Calcium Ionized Calcium Phosphorus Magnesium Iron TIBC Ferritin Total Bilirubin Direct Bilirubin AST ALT Alkaline Phosphatase Total Creatine Kinase CK-MB (CK-2) Troponin T C-Reactive Protein Serum Total Protein Total Protein Albumin Fjqba-5-Qsbgfxdph Polrw-0-Cmgdkpprx PEP Interpretation Triglycerides LDL Cholesterol Direct HDL Cholesterol Free T4 PTH Intact Urine WBC (Auto) Urine Creatinine Salicylates Acetaminophen Crossmatch 03/22/19 03/22/19 03/22/19 08:00 08:00 18:19 WBC 36.7 H RBC Hgb 11.0 L Hct 33.5 L MCV MCH MCHC RDW 15.5 H Plt Count 43 L Lymph % (Auto) [place] % (Auto) Eos % (Auto) Lymph # [place] # Eos # Seg Neutrophils % Seg Neuts % (Manual) 87.0 H Lymphocytes % (Manual) 7.0 L Monocytes % (Manual) Eosinophils % (Manual) Nucleated RBC % Seg Neutrophils # Seg Neutrophils # Man 31.9 H Lymphocytes # (Manual) Monocytes # (Manual) Eosinophils # (Manual) PT INR D-Dimer Heparin Anti-Xa Level POC ABG pH ABG pH POC ABG pCO2 46.4 H POC ABG pO2 108 H ABG pO2 ABG HCO3 ABG O2 Saturation ABG Base Excess ABG Hemoglobin Oxyhemoglobin Sodium 132 L Potassium 5.6 H Chloride 89.6 L Carbon Dioxide 20 L BUN 101 H Creatinine 7.4 H Glucose 124 H POC Glucose Lactic Acid Calcium 5.2 L* Ionized Calcium Phosphorus Magnesium Iron TIBC Ferritin Total Bilirubin 2.80 H Direct Bilirubin AST 119 H ALT 86 H Alkaline Phosphatase 245 H Total Creatine Kinase CK-MB (CK-2) Troponin T C-Reactive Protein Serum Total Protein Total Protein 5.6 L Albumin 2.5 L Lqylq-1-Ceenfeopc Cvhlw-6-Cjdueledm PEP Interpretation Triglycerides LDL Cholesterol Direct HDL Cholesterol Free T4 PTH Intact Urine WBC (Auto) Urine Creatinine Salicylates Acetaminophen Crossmatch 03/22/19 03/23/19 03/23/19 20:37 04:49 05:28 WBC 35.9 H RBC Hgb 10.8 L Hct 33.2 L MCV MCH MCHC RDW 15.5 H Plt Count 49 L Lymph % (Auto) [place] % (Auto) Eos % (Auto) Lymph # [place] # Eos # Seg Neutrophils % Seg Neuts % (Manual) 81.0 H Lymphocytes % (Manual) 3.5 L Monocytes % (Manual) Eosinophils % (Manual) Nucleated RBC % Seg Neutrophils # Seg Neutrophils # Man 29.1 H Lymphocytes # (Manual) Monocytes # (Manual) 1.4 H Eosinophils # (Manual) PT INR D-Dimer Heparin Anti-Xa Level POC ABG pH 7.296 L ABG pH POC ABG pCO2 46.2 H POC ABG pO2 ABG pO2 ABG HCO3 ABG O2 Saturation ABG Base Excess ABG Hemoglobin Oxyhemoglobin Sodium 129 L Potassium 5.2 H Chloride 91.1 L Carbon Dioxide BUN 91 H Creatinine 6.6 H Glucose 190 H POC Glucose Lactic Acid Calcium 5.3 L* Ionized Calcium Phosphorus Magnesium Iron TIBC Ferritin Total Bilirubin 1.80 H Direct Bilirubin AST 80 H ALT 62 H Alkaline Phosphatase 209 H Total Creatine Kinase 9758 H CK-MB (CK-2) Troponin T C-Reactive Protein Serum Total Protein Total Protein 5.2 L Albumin 2.2 L Ldsnm-6-Mnzypvntp Vnidj-8-Gnwllkdot PEP Interpretation Triglycerides LDL Cholesterol Direct HDL Cholesterol Free T4 PTH Intact Urine WBC (Auto) Urine Creatinine Salicylates Acetaminophen Crossmatch 03/23/19 03/23/19 03/23/19 05:28 05:31 11:33 WBC 29.7 H RBC 3.59 L Hgb 10.1 L Hct 31.1 L MCV MCH MCHC RDW 15.4 H Plt Count 47 L Lymph % (Auto) [place] % (Auto) Eos % (Auto) Lymph # [place] # Eos # Seg Neutrophils % Seg Neuts % (Manual) 89.0 H Lymphocytes % (Manual) 6.0 L Monocytes % (Manual) Eosinophils % (Manual) Nucleated RBC % 1.0 H Seg Neutrophils # Seg Neutrophils # Man 26.4 H Lymphocytes # (Manual) Monocytes # (Manual) Eosinophils # (Manual) PT INR D-Dimer Heparin Anti-Xa Level POC ABG pH ABG pH POC ABG pCO2 POC ABG pO2 ABG pO2 ABG HCO3 ABG O2 Saturation ABG Base Excess ABG Hemoglobin Oxyhemoglobin Sodium Potassium Chloride Carbon Dioxide BUN Creatinine Glucose POC Glucose 122 H 113 H Lactic Acid Calcium Ionized Calcium Phosphorus Magnesium Iron TIBC Ferritin Total Bilirubin Direct Bilirubin AST ALT Alkaline Phosphatase Total Creatine Kinase CK-MB (CK-2) Troponin T C-Reactive Protein Serum Total Protein Total Protein Albumin Yxslp-2-Gvyjabkgj Sykoz-6-Rwarrzscn PEP Interpretation Triglycerides LDL Cholesterol Direct HDL Cholesterol Free T4 PTH Intact Urine WBC (Auto) Urine Creatinine Salicylates Acetaminophen Crossmatch 03/23/19 03/24/19 03/24/19 17:47 00:00 04:50 WBC 35.0 H RBC Hgb 10.4 L Hct 32.4 L MCV MCH MCHC RDW Plt Count 60 L Lymph % (Auto) [place] % (Auto) Eos % (Auto) Lymph # [place] # Eos # Seg Neutrophils % Seg Neuts % (Manual) 93.0 H Lymphocytes % (Manual) 5.0 L Monocytes % (Manual) Eosinophils % (Manual) Nucleated RBC % 7.0 H Seg Neutrophils # Seg Neutrophils # Man 32.6 H Lymphocytes # (Manual) Monocytes # (Manual) Eosinophils # (Manual) PT INR D-Dimer Heparin Anti-Xa Level POC ABG pH ABG pH POC ABG pCO2 POC ABG pO2 ABG pO2 ABG HCO3 ABG O2 Saturation ABG Base Excess ABG Hemoglobin Oxyhemoglobin Sodium Potassium Chloride Carbon Dioxide BUN Creatinine Glucose POC Glucose 111 H 108 H Lactic Acid Calcium Ionized Calcium Phosphorus Magnesium Iron TIBC Ferritin Total Bilirubin Direct Bilirubin AST ALT Alkaline Phosphatase Total Creatine Kinase CK-MB (CK-2) Troponin T C-Reactive Protein Serum Total Protein Total Protein Albumin Vaiez-9-Gjqsorzra Lbqgd-7-Ogckasies PEP Interpretation Triglycerides LDL Cholesterol Direct HDL Cholesterol Free T4 PTH Intact Urine WBC (Auto) Urine Creatinine Salicylates Acetaminophen Crossmatch 03/24/19 03/24/19 03/24/19 04:50 05:06 12:55 WBC RBC Hgb Hct MCV MCH MCHC RDW Plt Count Lymph % (Auto) [place] % (Auto) Eos % (Auto) Lymph # [place] # Eos # Seg Neutrophils % Seg Neuts % (Manual) Lymphocytes % (Manual) Monocytes % (Manual) Eosinophils % (Manual) Nucleated RBC % Seg Neutrophils # Seg Neutrophils # Man Lymphocytes # (Manual) Monocytes # (Manual) Eosinophils # (Manual) PT INR D-Dimer Heparin Anti-Xa Level POC ABG pH ABG pH POC ABG pCO2 POC ABG pO2 ABG pO2 ABG HCO3 ABG O2 Saturation ABG Base Excess ABG Hemoglobin Oxyhemoglobin Sodium 134 L Potassium 5.1 H Chloride 95.3 L Carbon Dioxide 21 L BUN 85 H Creatinine 6.4 H Glucose 109 H POC Glucose 112 H 110 H Lactic Acid Calcium 5.8 L* Ionized Calcium Phosphorus Magnesium Iron TIBC Ferritin Total Bilirubin Direct Bilirubin AST ALT Alkaline Phosphatase Total Creatine Kinase 5747 H CK-MB (CK-2) Troponin T C-Reactive Protein Serum Total Protein Total Protein Albumin Rihpa-5-Yzbtpvdse Tnvki-9-Feairedxx PEP Interpretation Triglycerides LDL Cholesterol Direct HDL Cholesterol Free T4 PTH Intact Urine WBC (Auto) Urine Creatinine Salicylates Acetaminophen Crossmatch 03/24/19 03/25/19 03/25/19 23:29 05:00 05:00 WBC RBC Hgb Hct MCV MCH MCHC RDW Plt Count Lymph % (Auto) [place] % (Auto) Eos % (Auto) Lymph # [place] # Eos # Seg Neutrophils % Seg Neuts % (Manual) Lymphocytes % (Manual) Monocytes % (Manual) Eosinophils % (Manual) Nucleated RBC % Seg Neutrophils # Seg Neutrophils # Man Lymphocytes # (Manual) Monocytes # (Manual) Eosinophils # (Manual) PT INR D-Dimer Heparin Anti-Xa Level POC ABG pH ABG pH POC ABG pCO2 POC ABG pO2 ABG pO2 ABG HCO3 ABG O2 Saturation ABG Base Excess ABG Hemoglobin Oxyhemoglobin Sodium 133 L Potassium Chloride 94.0 L Carbon Dioxide 21 L BUN 81 H Creatinine 6.4 H Glucose POC Glucose 109 H Lactic Acid Calcium 5.5 L* Ionized Calcium Phosphorus Magnesium Iron TIBC Ferritin Total Bilirubin Direct Bilirubin AST 80 H ALT Alkaline Phosphatase 202 H Total Creatine Kinase 3589 H CK-MB (CK-2) Troponin T C-Reactive Protein Serum Total Protein Total Protein 5.3 L Albumin 2.4 L Dtzyo-2-Yuekgvyli Akwcu-0-Ajiqxhexs PEP Interpretation Triglycerides LDL Cholesterol Direct HDL Cholesterol Free T4 PTH Intact 329.9 H Urine WBC (Auto) Urine Creatinine Salicylates Acetaminophen Crossmatch 03/25/19 03/25/19 03/26/19 05:00 06:30 04:30 WBC 23.3 H RBC 3.61 L Hgb 10.2 L Hct 31.2 L MCV MCH MCHC RDW Plt Count 57 L Lymph % (Auto) [place] % (Auto) Eos % (Auto) Lymph # [place] # Eos # Seg Neutrophils % Seg Neuts % (Manual) 92.0 H Lymphocytes % (Manual) 6.0 L Monocytes % (Manual) Eosinophils % (Manual) Nucleated RBC % Seg Neutrophils # Seg Neutrophils # Man 21.4 H Lymphocytes # (Manual) Monocytes # (Manual) Eosinophils # (Manual) PT INR D-Dimer Heparin Anti-Xa Level POC ABG pH ABG pH 7.326 L POC ABG pCO2 POC ABG pO2 ABG pO2 109.5 H 137.4 H ABG HCO3 18.8 L 18.6 L ABG O2 Saturation ABG Base Excess -4.4 L -6.8 L ABG Hemoglobin 10.1 L 9.9 L Oxyhemoglobin Sodium Potassium Chloride Carbon Dioxide BUN Creatinine Glucose POC Glucose Lactic Acid Calcium Ionized Calcium Phosphorus Magnesium Iron TIBC Ferritin Total Bilirubin Direct Bilirubin AST ALT Alkaline Phosphatase Total Creatine Kinase CK-MB (CK-2) Troponin T C-Reactive Protein Serum Total Protein Total Protein Albumin Trqcq-2-Gykvxkpcc Hfcpo-4-Qpmmdkrum PEP Interpretation Triglycerides LDL Cholesterol Direct HDL Cholesterol Free T4 PTH Intact Urine WBC (Auto) Urine Creatinine Salicylates Acetaminophen Crossmatch 03/26/19 03/26/19 03/26/19 23:22 Unknown Unknown WBC 19.5 H RBC 3.44 L Hgb 9.8 L Hct 29.9 L MCV MCH MCHC RDW Plt Count 85 L Lymph % (Auto) [place] % (Auto) Eos % (Auto) Lymph # [place] # Eos # Seg Neutrophils % Seg Neuts % (Manual) 95.0 H Lymphocytes % (Manual) 3.0 L Monocytes % (Manual) Eosinophils % (Manual) Nucleated RBC % Seg Neutrophils # Seg Neutrophils # Man 18.5 H Lymphocytes # (Manual) 0.6 L Monocytes # (Manual) Eosinophils # (Manual) PT INR D-Dimer Heparin Anti-Xa Level POC ABG pH ABG pH POC ABG pCO2 POC ABG pO2 ABG pO2 ABG HCO3 ABG O2 Saturation ABG Base Excess ABG Hemoglobin Oxyhemoglobin Sodium 135 L Potassium 5.2 H D Chloride 92.2 L Carbon Dioxide 18 L BUN 109 H Creatinine 8.5 H Glucose 117 H POC Glucose 69 L Lactic Acid Calcium 4.5 L* D Ionized Calcium Phosphorus Magnesium Iron TIBC Ferritin Total Bilirubin Direct Bilirubin AST ALT Alkaline Phosphatase Total Creatine Kinase 4527 H CK-MB (CK-2) Troponin T C-Reactive Protein Serum Total Protein Total Protein Albumin Xdcst-1-Tlmlznwfn Hpqyg-4-Zrzifikgy PEP Interpretation Triglycerides LDL Cholesterol Direct HDL Cholesterol Free T4 PTH Intact Urine WBC (Auto) Urine Creatinine Salicylates Acetaminophen Crossmatch 03/27/19 03/27/19 03/27/19 04:30 04:30 09:00 WBC 19.2 H RBC 3.42 L Hgb 9.9 L Hct 30.0 L MCV MCH MCHC RDW Plt Count 84 L Lymph % (Auto) [place] % (Auto) Eos % (Auto) Lymph # [place] # Eos # Seg Neutrophils % Seg Neuts % (Manual) Lymphocytes % (Manual) Monocytes % (Manual) Eosinophils % (Manual) Nucleated RBC % Seg Neutrophils # Seg Neutrophils # Man Lymphocytes # (Manual) Monocytes # (Manual) Eosinophils # (Manual) PT INR D-Dimer Heparin Anti-Xa Level POC ABG pH ABG pH POC ABG pCO2 POC ABG pO2 ABG pO2 ABG HCO3 ABG O2 Saturation ABG Base Excess ABG Hemoglobin Oxyhemoglobin Sodium 135 L Potassium Chloride 93.5 L Carbon Dioxide BUN 84 H Creatinine 7.1 H Glucose POC Glucose Lactic Acid Calcium 5.0 L* Ionized Calcium Phosphorus Magnesium Iron TIBC Ferritin Total Bilirubin Direct Bilirubin AST 78 H ALT Alkaline Phosphatase 135 H Total Creatine Kinase 4677 H CK-MB (CK-2) Troponin T C-Reactive Protein Serum Total Protein Total Protein 4.8 L Albumin 2.3 L Flwgp-5-Eaecejnrp Wvgrb-2-Urukyugcf PEP Interpretation Triglycerides 409 H LDL Cholesterol Direct HDL Cholesterol Free T4 PTH Intact Urine WBC (Auto) Urine Creatinine Salicylates Acetaminophen Crossmatch 03/27/19 03/27/19 03/27/19 12:37 14:15 14:15 WBC RBC Hgb 9.7 L Hct 29.5 L MCV MCH MCHC RDW Plt Count 87 L Lymph % (Auto) [place] % (Auto) Eos % (Auto) Lymph # [place] # Eos # Seg Neutrophils % Seg Neuts % (Manual) Lymphocytes % (Manual) Monocytes % (Manual) Eosinophils % (Manual) Nucleated RBC % Seg Neutrophils # Seg Neutrophils # Man Lymphocytes # (Manual) Monocytes # (Manual) Eosinophils # (Manual) PT 15.9 H INR 1.30 H D-Dimer Heparin Anti-Xa Level POC ABG pH ABG pH POC ABG pCO2 POC ABG pO2 ABG pO2 ABG HCO3 ABG O2 Saturation ABG Base Excess ABG Hemoglobin Oxyhemoglobin Sodium Potassium Chloride Carbon Dioxide BUN Creatinine Glucose POC Glucose 129 H Lactic Acid Calcium Ionized Calcium Phosphorus Magnesium Iron TIBC Ferritin Total Bilirubin Direct Bilirubin AST ALT Alkaline Phosphatase Total Creatine Kinase CK-MB (CK-2) Troponin T C-Reactive Protein Serum Total Protein Total Protein Albumin Oqmyc-2-Bzjzgfuvg Zxvfs-5-Hktcngihg PEP Interpretation Triglycerides LDL Cholesterol Direct HDL Cholesterol Free T4 PTH Intact Urine WBC (Auto) Urine Creatinine Salicylates Acetaminophen Crossmatch 03/27/19 03/27/19 03/27/19 18:00 19:22 19:23 WBC RBC Hgb Hct MCV MCH MCHC RDW Plt Count Lymph % (Auto) [place] % (Auto) Eos % (Auto) Lymph # [place] # Eos # Seg Neutrophils % Seg Neuts % (Manual) Lymphocytes % (Manual) Monocytes % (Manual) Eosinophils % (Manual) Nucleated RBC % Seg Neutrophils # Seg Neutrophils # Man Lymphocytes # (Manual) Monocytes # (Manual) Eosinophils # (Manual) PT INR D-Dimer Heparin Anti-Xa Level < 0.10 L POC ABG pH ABG pH POC ABG pCO2 POC ABG pO2 ABG pO2 ABG HCO3 ABG O2 Saturation ABG Base Excess ABG Hemoglobin Oxyhemoglobin Sodium Potassium Chloride Carbon Dioxide BUN Creatinine Glucose POC Glucose 121 H Lactic Acid Calcium Ionized Calcium Phosphorus Magnesium Iron TIBC Ferritin Total Bilirubin Direct Bilirubin AST ALT Alkaline Phosphatase Total Creatine Kinase 4517 H CK-MB (CK-2) Troponin T C-Reactive Protein Serum Total Protein Total Protein Albumin Cjqdp-8-Xeixjavcg Blmkf-2-Dcbytlqbn PEP Interpretation Triglycerides LDL Cholesterol Direct HDL Cholesterol Free T4 PTH Intact Urine WBC (Auto) Urine Creatinine Salicylates Acetaminophen Crossmatch 03/27/19 03/27/19 03/28/19 22:10 23:52 03:49 WBC RBC Hgb Hct MCV MCH MCHC RDW Plt Count Lymph % (Auto) [place] % (Auto) Eos % (Auto) Lymph # [place] # Eos # Seg Neutrophils % Seg Neuts % (Manual) Lymphocytes % (Manual) Monocytes % (Manual) Eosinophils % (Manual) Nucleated RBC % Seg Neutrophils # Seg Neutrophils # Man Lymphocytes # (Manual) Monocytes # (Manual) Eosinophils # (Manual) PT INR D-Dimer Heparin Anti-Xa Level POC ABG pH 7.338 L ABG pH POC ABG pCO2 33.1 L POC ABG pO2 ABG pO2 ABG HCO3 ABG O2 Saturation ABG Base Excess ABG Hemoglobin Oxyhemoglobin Sodium Potassium Chloride Carbon Dioxide BUN Creatinine Glucose POC Glucose 113 H 117 H Lactic Acid Calcium Ionized Calcium Phosphorus Magnesium Iron TIBC Ferritin Total Bilirubin Direct Bilirubin AST ALT Alkaline Phosphatase Total Creatine Kinase CK-MB (CK-2) Troponin T C-Reactive Protein Serum Total Protein Total Protein Albumin Imlmz-9-Xsdqkujun Pfogp-3-Tsuzrbtwx PEP Interpretation Triglycerides LDL Cholesterol Direct HDL Cholesterol Free T4 PTH Intact Urine WBC (Auto) Urine Creatinine Salicylates Acetaminophen Crossmatch 03/28/19 03/28/19 03/28/19 05:13 05:13 06:18 WBC RBC Hgb Hct MCV MCH MCHC RDW Plt Count Lymph % (Auto) [place] % (Auto) Eos % (Auto) Lymph # [place] # Eos # Seg Neutrophils % Seg Neuts % (Manual) Lymphocytes % (Manual) Monocytes % (Manual) Eosinophils % (Manual) Nucleated RBC % Seg Neutrophils # Seg Neutrophils # Man Lymphocytes # (Manual) Monocytes # (Manual) Eosinophils # (Manual) PT INR D-Dimer Heparin Anti-Xa Level 0.23 L POC ABG pH ABG pH POC ABG pCO2 POC ABG pO2 ABG pO2 ABG HCO3 ABG O2 Saturation ABG Base Excess ABG Hemoglobin Oxyhemoglobin Sodium 135 L Potassium 5.5 H D Chloride 95.1 L Carbon Dioxide 16 L D BUN 129 H Creatinine 9.3 H Glucose 158 H POC Glucose 202 H Lactic Acid Calcium 4.0 L* D Ionized Calcium Phosphorus 12.40 H Magnesium Iron TIBC Ferritin Total Bilirubin Direct Bilirubin AST ALT Alkaline Phosphatase Total Creatine Kinase 4266 H CK-MB (CK-2) Troponin T C-Reactive Protein Serum Total Protein Total Protein Albumin Kagzo-5-Pcscggnmf Kyvty-8-Shuisgyqw PEP Interpretation Triglycerides LDL Cholesterol Direct HDL Cholesterol Free T4 PTH Intact Urine WBC (Auto) Urine Creatinine Salicylates Acetaminophen Crossmatch 03/28/19 03/28/19 03/28/19 08:25 10:00 12:00 WBC RBC Hgb 4.9 L* D Hct 15.4 L* D MCV MCH MCHC RDW Plt Count Lymph % (Auto) [place] % (Auto) Eos % (Auto) Lymph # [place] # Eos # Seg Neutrophils % Seg Neuts % (Manual) Lymphocytes % (Manual) Monocytes % (Manual) Eosinophils % (Manual) Nucleated RBC % Seg Neutrophils # Seg Neutrophils # Man Lymphocytes # (Manual) Monocytes # (Manual) Eosinophils # (Manual) PT 17.9 H INR 1.52 H D-Dimer 4845.98 H Heparin Anti-Xa Level POC ABG pH ABG pH POC ABG pCO2 POC ABG pO2 ABG pO2 ABG HCO3 ABG O2 Saturation ABG Base Excess ABG Hemoglobin Oxyhemoglobin Sodium Potassium Chloride Carbon Dioxide BUN Creatinine Glucose POC Glucose Lactic Acid Calcium Ionized Calcium Phosphorus Magnesium Iron TIBC Ferritin Total Bilirubin Direct Bilirubin AST ALT Alkaline Phosphatase Total Creatine Kinase CK-MB (CK-2) Troponin T C-Reactive Protein Serum Total Protein Total Protein Albumin Gqrjq-0-Rmviigxcw Wnyuq-5-Plvbnkmez PEP Interpretation Triglycerides LDL Cholesterol Direct HDL Cholesterol Free T4 PTH Intact Urine WBC (Auto) Urine Creatinine Salicylates Acetaminophen Crossmatch See Detail 03/28/19 03/28/19 03/28/19 12:28 14:10 17:43 WBC RBC Hgb 5.9 L* Hct 18.3 L* MCV MCH MCHC RDW Plt Count Lymph % (Auto) [place] % (Auto) Eos % (Auto) Lymph # [place] # Eos # Seg Neutrophils % Seg Neuts % (Manual) Lymphocytes % (Manual) Monocytes % (Manual) Eosinophils % (Manual) Nucleated RBC % Seg Neutrophils # Seg Neutrophils # Man Lymphocytes # (Manual) Monocytes # (Manual) Eosinophils # (Manual) PT INR D-Dimer Heparin Anti-Xa Level POC ABG pH ABG pH POC ABG pCO2 POC ABG pO2 ABG pO2 ABG HCO3 ABG O2 Saturation ABG Base Excess ABG Hemoglobin Oxyhemoglobin Sodium Potassium Chloride Carbon Dioxide BUN Creatinine Glucose POC Glucose 153 H 159 H Lactic Acid Calcium Ionized Calcium Phosphorus Magnesium Iron TIBC Ferritin Total Bilirubin Direct Bilirubin AST ALT Alkaline Phosphatase Total Creatine Kinase CK-MB (CK-2) Troponin T C-Reactive Protein Serum Total Protein Total Protein Albumin Xqqtg-0-Thdypfiet Kdeyi-0-Neajjhbef PEP Interpretation Triglycerides LDL Cholesterol Direct HDL Cholesterol Free T4 PTH Intact Urine WBC (Auto) Urine Creatinine Salicylates Acetaminophen Crossmatch 03/28/19 03/28/19 03/28/19 18:10 Unknown 23:59 WBC 24.8 H RBC 3.42 L Hgb 10.2 L D Hct 31.1 L D MCV MCH MCHC RDW 15.4 H Plt Count 54 L Lymph % (Auto) [place] % (Auto) Eos % (Auto) Lymph # [place] # Eos # Seg Neutrophils % Seg Neuts % (Manual) 91.0 H Lymphocytes % (Manual) 8.0 L Monocytes % (Manual) Eosinophils % (Manual) Nucleated RBC % Seg Neutrophils # Seg Neutrophils # Man 22.6 H Lymphocytes # (Manual) Monocytes # (Manual) Eosinophils # (Manual) PT INR D-Dimer Heparin Anti-Xa Level POC ABG pH ABG pH POC ABG pCO2 POC ABG pO2 ABG pO2 ABG HCO3 ABG O2 Saturation ABG Base Excess ABG Hemoglobin Oxyhemoglobin Sodium Potassium 5.7 H Chloride Carbon Dioxide BUN Creatinine Glucose POC Glucose 107 H Lactic Acid Calcium Ionized Calcium Phosphorus Magnesium Iron TIBC Ferritin Total Bilirubin Direct Bilirubin AST ALT Alkaline Phosphatase Total Creatine Kinase CK-MB (CK-2) Troponin T C-Reactive Protein Serum Total Protein Total Protein Albumin Uybjc-7-Cfnyrhhvo Jxtru-5-Mwcracnly PEP Interpretation Triglycerides LDL Cholesterol Direct HDL Cholesterol Free T4 PTH Intact Urine WBC (Auto) Urine Creatinine Salicylates Acetaminophen Crossmatch 03/29/19 03/29/19 03/29/19 04:29 05:46 06:22 WBC RBC Hgb 8.6 L Hct 25.7 L MCV MCH MCHC RDW Plt Count 93 L Lymph % (Auto) [place] % (Auto) Eos % (Auto) Lymph # [place] # Eos # Seg Neutrophils % Seg Neuts % (Manual) Lymphocytes % (Manual) Monocytes % (Manual) Eosinophils % (Manual) Nucleated RBC % Seg Neutrophils # Seg Neutrophils # Man Lymphocytes # (Manual) Monocytes # (Manual) Eosinophils # (Manual) PT INR D-Dimer Heparin Anti-Xa Level POC ABG pH ABG pH POC ABG pCO2 32.2 L POC ABG pO2 ABG pO2 ABG HCO3 ABG O2 Saturation ABG Base Excess ABG Hemoglobin Oxyhemoglobin Sodium Potassium Chloride Carbon Dioxide BUN Creatinine Glucose POC Glucose 113 H Lactic Acid Calcium Ionized Calcium Phosphorus Magnesium Iron TIBC Ferritin Total Bilirubin Direct Bilirubin AST ALT Alkaline Phosphatase Total Creatine Kinase CK-MB (CK-2) Troponin T C-Reactive Protein Serum Total Protein Total Protein Albumin Fopdi-0-Cuczjmpww Xcjkg-2-Hmwldcmgs PEP Interpretation Triglycerides LDL Cholesterol Direct HDL Cholesterol Free T4 PTH Intact Urine WBC (Auto) Urine Creatinine Salicylates Acetaminophen Crossmatch 03/29/19 03/29/19 03/29/19 06:22 06:22 06:22 WBC 23.2 H RBC 2.91 L Hgb 8.6 L Hct 25.8 L MCV MCH MCHC RDW Plt Count 91 L Lymph % (Auto) [place] % (Auto) Eos % (Auto) Lymph # [place] # Eos # Seg Neutrophils % Seg Neuts % (Manual) Lymphocytes % (Manual) Monocytes % (Manual) Eosinophils % (Manual) Nucleated RBC % Seg Neutrophils # Seg Neutrophils # Man Lymphocytes # (Manual) Monocytes # (Manual) Eosinophils # (Manual) PT INR D-Dimer Heparin Anti-Xa Level POC ABG pH ABG pH POC ABG pCO2 POC ABG pO2 ABG pO2 ABG HCO3 ABG O2 Saturation ABG Base Excess ABG Hemoglobin Oxyhemoglobin Sodium 133 L Potassium Chloride 93.8 L Carbon Dioxide 18 L BUN 109 H Creatinine 7.4 H Glucose 124 H POC Glucose Lactic Acid Calcium 4.6 L* Ionized Calcium Phosphorus Magnesium Iron TIBC Ferritin Total Bilirubin Direct Bilirubin AST ALT Alkaline Phosphatase Total Creatine Kinase 3401 H CK-MB (CK-2) Troponin T C-Reactive Protein Serum Total Protein Total Protein Albumin Bpflf-5-Tfbcvirrv Yojcp-9-Qqnmhbpma PEP Interpretation Triglycerides 309 H LDL Cholesterol Direct HDL Cholesterol Free T4 PTH Intact Urine WBC (Auto) Urine Creatinine Salicylates Acetaminophen Crossmatch 03/29/19 03/29/19 03/29/19 11:48 11:48 18:24 WBC RBC Hgb 7.8 L Hct 23.2 L MCV MCH MCHC RDW Plt Count Lymph % (Auto) [place] % (Auto) Eos % (Auto) Lymph # [place] # Eos # Seg Neutrophils % Seg Neuts % (Manual) Lymphocytes % (Manual) Monocytes % (Manual) Eosinophils % (Manual) Nucleated RBC % Seg Neutrophils # Seg Neutrophils # Man Lymphocytes # (Manual) Monocytes # (Manual) Eosinophils # (Manual) PT 15.3 H INR 1.24 H D-Dimer Heparin Anti-Xa Level POC ABG pH ABG pH POC ABG pCO2 POC ABG pO2 ABG pO2 ABG HCO3 ABG O2 Saturation ABG Base Excess ABG Hemoglobin Oxyhemoglobin Sodium Potassium Chloride Carbon Dioxide BUN Creatinine Glucose POC Glucose 122 H Lactic Acid Calcium Ionized Calcium Phosphorus Magnesium Iron TIBC Ferritin Total Bilirubin Direct Bilirubin AST ALT Alkaline Phosphatase Total Creatine Kinase CK-MB (CK-2) Troponin T C-Reactive Protein Serum Total Protein Total Protein Albumin Qftqr-5-Bzqcfuegr Icftj-8-Yokqezgiw PEP Interpretation Triglycerides LDL Cholesterol Direct HDL Cholesterol Free T4 PTH Intact Urine WBC (Auto) Urine Creatinine Salicylates Acetaminophen Crossmatch 03/30/19 03/30/19 03/30/19 00:40 04:31 05:04 WBC RBC Hgb 7.6 L Hct 23.0 L MCV MCH MCHC RDW Plt Count Lymph % (Auto) [place] % (Auto) Eos % (Auto) Lymph # [place] # Eos # Seg Neutrophils % Seg Neuts % (Manual) Lymphocytes % (Manual) Monocytes % (Manual) Eosinophils % (Manual) Nucleated RBC % Seg Neutrophils # Seg Neutrophils # Man Lymphocytes # (Manual) Monocytes # (Manual) Eosinophils # (Manual) PT INR D-Dimer Heparin Anti-Xa Level POC ABG pH 7.346 L ABG pH POC ABG pCO2 POC ABG pO2 62 L ABG pO2 ABG HCO3 ABG O2 Saturation ABG Base Excess ABG Hemoglobin Oxyhemoglobin Sodium Potassium Chloride Carbon Dioxide BUN 79 H Creatinine 6.4 H Glucose POC Glucose Lactic Acid Calcium 6.1 L D Ionized Calcium Phosphorus Magnesium Iron TIBC Ferritin Total Bilirubin Direct Bilirubin AST ALT Alkaline Phosphatase Total Creatine Kinase CK-MB (CK-2) Troponin T C-Reactive Protein Serum Total Protein Total Protein Albumin Bckip-2-Dafnvnhiw Nzowy-8-Xqxtkgcye PEP Interpretation Triglycerides LDL Cholesterol Direct HDL Cholesterol Free T4 PTH Intact Urine WBC (Auto) Urine Creatinine Salicylates Acetaminophen Crossmatch 03/30/19 03/30/19 03/30/19 08:45 12:09 22:43 WBC 14.3 H RBC 2.33 L Hgb 7.0 L 7.4 L Hct 21.0 L 22.3 L MCV MCH MCHC RDW 15.6 H Plt Count 135 L Lymph % (Auto) [place] % (Auto) Eos % (Auto) Lymph # [place] # Eos # Seg Neutrophils % Seg Neuts % (Manual) Lymphocytes % (Manual) Monocytes % (Manual) Eosinophils % (Manual) Nucleated RBC % Seg Neutrophils # Seg Neutrophils # Man Lymphocytes # (Manual) Monocytes # (Manual) Eosinophils # (Manual) PT INR D-Dimer Heparin Anti-Xa Level POC ABG pH ABG pH POC ABG pCO2 POC ABG pO2 ABG pO2 ABG HCO3 ABG O2 Saturation ABG Base Excess ABG Hemoglobin Oxyhemoglobin Sodium Potassium Chloride Carbon Dioxide BUN Creatinine Glucose POC Glucose Lactic Acid Calcium Ionized Calcium 3.7 L Phosphorus Magnesium Iron TIBC Ferritin Total Bilirubin Direct Bilirubin AST ALT Alkaline Phosphatase Total Creatine Kinase CK-MB (CK-2) Troponin T C-Reactive Protein Serum Total Protein Total Protein Albumin Zrqoh-0-Ifxutlptg Lhhki-8-Yenwzeart PEP Interpretation Triglycerides LDL Cholesterol Direct HDL Cholesterol Free T4 PTH Intact Urine WBC (Auto) Urine Creatinine Salicylates Acetaminophen Crossmatch 03/30/19 03/30/19 03/31/19 23:38 Unknown 04:44 WBC 11.5 H RBC 2.40 L Hgb 7.3 L Hct 21.9 L MCV MCH MCHC RDW 15.4 H Plt Count Lymph % (Auto) 10.6 L [place] % (Auto) Eos % (Auto) Lymph # [place] # Eos # Seg Neutrophils % 81.7 H Seg Neuts % (Manual) Lymphocytes % (Manual) Monocytes % (Manual) Eosinophils % (Manual) Nucleated RBC % Seg Neutrophils # 9.4 H Seg Neutrophils # Man Lymphocytes # (Manual) Monocytes # (Manual) Eosinophils # (Manual) PT INR D-Dimer Heparin Anti-Xa Level POC ABG pH ABG pH POC ABG pCO2 POC ABG pO2 ABG pO2 ABG HCO3 ABG O2 Saturation ABG Base Excess ABG Hemoglobin Oxyhemoglobin Sodium Potassium Chloride Carbon Dioxide BUN Creatinine Glucose POC Glucose 155 H Lactic Acid Calcium Ionized Calcium Phosphorus Magnesium Iron TIBC Ferritin Total Bilirubin Direct Bilirubin 0.4 H AST 63 H ALT Alkaline Phosphatase Total Creatine Kinase CK-MB (CK-2) Troponin T C-Reactive Protein Serum Total Protein Total Protein 4.9 L Albumin 2.2 L Ofkmy-7-Ojrinavdh Eqynb-8-Tcxgceejh PEP Interpretation Triglycerides LDL Cholesterol Direct HDL Cholesterol Free T4 PTH Intact Urine WBC (Auto) Urine Creatinine Salicylates Acetaminophen Crossmatch 03/31/19 03/31/19 03/31/19 04:44 05:44 08:20 WBC RBC Hgb Hct MCV MCH MCHC RDW Plt Count Lymph % (Auto) [place] % (Auto) Eos % (Auto) Lymph # [place] # Eos # Seg Neutrophils % Seg Neuts % (Manual) Lymphocytes % (Manual) Monocytes % (Manual) Eosinophils % (Manual) Nucleated RBC % Seg Neutrophils # Seg Neutrophils # Man Lymphocytes # (Manual) Monocytes # (Manual) Eosinophils # (Manual) PT INR D-Dimer Heparin Anti-Xa Level POC ABG pH ABG pH POC ABG pCO2 53.5 H POC ABG pO2 62 L ABG pO2 ABG HCO3 ABG O2 Saturation ABG Base Excess ABG Hemoglobin Oxyhemoglobin Sodium 135 L Potassium Chloride 96.7 L Carbon Dioxide 19 L BUN 94 H Creatinine 7.8 H Glucose POC Glucose Lactic Acid Calcium 5.3 L* Ionized Calcium Phosphorus 8.20 H Magnesium Iron TIBC Ferritin Total Bilirubin Direct Bilirubin 0.4 H AST 60 H ALT Alkaline Phosphatase Total Creatine Kinase CK-MB (CK-2) Troponin T C-Reactive Protein Serum Total Protein Total Protein 4.8 L Albumin 2.1 L Guxhv-9-Himegebms Ftpto-6-Bqevcgixt PEP Interpretation Triglycerides LDL Cholesterol Direct HDL Cholesterol Free T4 PTH Intact Urine WBC (Auto) Urine Creatinine Salicylates Acetaminophen Crossmatch 03/31/19 04/01/19 04/01/19 22:14 04:27 04:27 WBC RBC 2.60 L Hgb 8.0 L Hct 24.1 L MCV MCH MCHC RDW 15.7 H Plt Count Lymph % (Auto) 7.9 L [place] % (Auto) Eos % (Auto) Lymph # 0.7 L [place] # Eos # Seg Neutrophils % 83.6 H Seg Neuts % (Manual) Lymphocytes % (Manual) Monocytes % (Manual) Eosinophils % (Manual) Nucleated RBC % Seg Neutrophils # Seg Neutrophils # Man Lymphocytes # (Manual) Monocytes # (Manual) Eosinophils # (Manual) PT INR D-Dimer Heparin Anti-Xa Level POC ABG pH 7.286 L ABG pH POC ABG pCO2 54.7 H POC ABG pO2 179 H ABG pO2 ABG HCO3 ABG O2 Saturation ABG Base Excess ABG Hemoglobin Oxyhemoglobin Sodium Potassium Chloride Carbon Dioxide BUN 68 H Creatinine 6.6 H Glucose POC Glucose Lactic Acid Calcium 6.5 L D Ionized Calcium Phosphorus 7.30 H Magnesium Iron TIBC Ferritin Total Bilirubin Direct Bilirubin AST ALT Alkaline Phosphatase Total Creatine Kinase 1652 H CK-MB (CK-2) Troponin T C-Reactive Protein Serum Total Protein Total Protein Albumin Zrsut-6-Ozbgunrwf Kyoko-9-Irbwmkjzg PEP Interpretation Triglycerides LDL Cholesterol Direct HDL Cholesterol Free T4 PTH Intact Urine WBC (Auto) Urine Creatinine Salicylates Acetaminophen Crossmatch 04/01/19 04/01/19 04/01/19 05:14 05:37 18:37 WBC RBC Hgb Hct MCV MCH MCHC RDW Plt Count Lymph % (Auto) [place] % (Auto) Eos % (Auto) Lymph # [place] # Eos # Seg Neutrophils % Seg Neuts % (Manual) Lymphocytes % (Manual) Monocytes % (Manual) Eosinophils % (Manual) Nucleated RBC % Seg Neutrophils # Seg Neutrophils # Man Lymphocytes # (Manual) Monocytes # (Manual) Eosinophils # (Manual) PT INR D-Dimer Heparin Anti-Xa Level POC ABG pH 7.283 L ABG pH POC ABG pCO2 53.4 H POC ABG pO2 241 H ABG pO2 ABG HCO3 ABG O2 Saturation ABG Base Excess ABG Hemoglobin Oxyhemoglobin Sodium Potassium Chloride Carbon Dioxide BUN Creatinine Glucose POC Glucose 111 H 119 H Lactic Acid Calcium Ionized Calcium Phosphorus Magnesium Iron TIBC Ferritin Total Bilirubin Direct Bilirubin AST ALT Alkaline Phosphatase Total Creatine Kinase CK-MB (CK-2) Troponin T C-Reactive Protein Serum Total Protein Total Protein Albumin Wterh-1-Ywmocwmbu Gdzbt-9-Gflewrgse PEP Interpretation Triglycerides LDL Cholesterol Direct HDL Cholesterol Free T4 PTH Intact Urine WBC (Auto) Urine Creatinine Salicylates Acetaminophen Crossmatch 04/01/19 04/02/19 04/02/19 21:28 04:40 05:03 WBC RBC 2.36 L Hgb 7.2 L Hct 21.9 L MCV MCH MCHC RDW 16.0 H Plt Count Lymph % (Auto) 10.8 L [place] % (Auto) Eos % (Auto) Lymph # 0.8 L [place] # Eos # Seg Neutrophils % 80.3 H Seg Neuts % (Manual) Lymphocytes % (Manual) Monocytes % (Manual) Eosinophils % (Manual) Nucleated RBC % Seg Neutrophils # Seg Neutrophils # Man Lymphocytes # (Manual) Monocytes # (Manual) Eosinophils # (Manual) PT INR D-Dimer Heparin Anti-Xa Level POC ABG pH 7.299 L 7.300 L ABG pH POC ABG pCO2 48.2 H 45.2 H POC ABG pO2 133 H 107 H ABG pO2 ABG HCO3 ABG O2 Saturation ABG Base Excess ABG Hemoglobin Oxyhemoglobin Sodium Potassium Chloride Carbon Dioxide BUN Creatinine Glucose POC Glucose Lactic Acid Calcium Ionized Calcium Phosphorus Magnesium Iron TIBC Ferritin Total Bilirubin Direct Bilirubin AST ALT Alkaline Phosphatase Total Creatine Kinase CK-MB (CK-2) Troponin T C-Reactive Protein Serum Total Protein Total Protein Albumin Cvecs-4-Qrlzrwqpj Cptuc-3-Uqymxydtz PEP Interpretation Triglycerides LDL Cholesterol Direct HDL Cholesterol Free T4 PTH Intact Urine WBC (Auto) Urine Creatinine Salicylates Acetaminophen Crossmatch 04/02/19 04/02/19 04/02/19 05:03 05:03 12:15 WBC RBC Hgb 7.4 L Hct 22.6 L MCV MCH MCHC RDW Plt Count Lymph % (Auto) [place] % (Auto) Eos % (Auto) Lymph # [place] # Eos # Seg Neutrophils % Seg Neuts % (Manual) Lymphocytes % (Manual) Monocytes % (Manual) Eosinophils % (Manual) Nucleated RBC % Seg Neutrophils # Seg Neutrophils # Man Lymphocytes # (Manual) Monocytes # (Manual) Eosinophils # (Manual) PT INR D-Dimer Heparin Anti-Xa Level POC ABG pH ABG pH POC ABG pCO2 POC ABG pO2 ABG pO2 ABG HCO3 ABG O2 Saturation ABG Base Excess ABG Hemoglobin Oxyhemoglobin Sodium 136 L Potassium Chloride 97.8 L Carbon Dioxide 18 L BUN 82 H Creatinine 8.2 H Glucose POC Glucose Lactic Acid Calcium 6.7 L Ionized Calcium Phosphorus 7.50 H Magnesium Iron 26 L TIBC 138 L Ferritin 607.0 H Total Bilirubin Direct Bilirubin AST ALT Alkaline Phosphatase Total Creatine Kinase CK-MB (CK-2) Troponin T C-Reactive Protein Serum Total Protein Total Protein Albumin Hcwnv-1-Qqyluxqsy Rstoa-6-Jwpwrtcua PEP Interpretation Triglycerides LDL Cholesterol Direct HDL Cholesterol Free T4 PTH Intact Urine WBC (Auto) Urine Creatinine Salicylates Acetaminophen Crossmatch 04/02/19 04/02/19 04/03/19 16:34 17:14 04:18 WBC RBC Hgb Hct MCV MCH MCHC RDW Plt Count Lymph % (Auto) [place] % (Auto) Eos % (Auto) Lymph # [place] # Eos # Seg Neutrophils % Seg Neuts % (Manual) Lymphocytes % (Manual) Monocytes % (Manual) Eosinophils % (Manual) Nucleated RBC % Seg Neutrophils # Seg Neutrophils # Man Lymphocytes # (Manual) Monocytes # (Manual) Eosinophils # (Manual) PT INR D-Dimer Heparin Anti-Xa Level POC ABG pH ABG pH POC ABG pCO2 POC ABG pO2 146 H ABG pO2 ABG HCO3 ABG O2 Saturation ABG Base Excess ABG Hemoglobin Oxyhemoglobin Sodium Potassium Chloride Carbon Dioxide BUN Creatinine Glucose POC Glucose 108 H Lactic Acid Calcium Ionized Calcium Phosphorus Magnesium Iron TIBC Ferritin Total Bilirubin Direct Bilirubin AST ALT Alkaline Phosphatase Total Creatine Kinase CK-MB (CK-2) Troponin T C-Reactive Protein Serum Total Protein Total Protein Albumin Jwonu-9-Tpmozbnjj Pagwt-2-Psdgvraam PEP Interpretation Triglycerides LDL Cholesterol Direct HDL Cholesterol Free T4 PTH Intact Urine WBC (Auto) Urine Creatinine Salicylates Acetaminophen Crossmatch See Detail 04/03/19 04/03/19 04/03/19 04:25 08:30 18:24 WBC RBC 2.40 L Hgb 7.3 L Hct 21.9 L MCV MCH MCHC RDW Plt Count Lymph % (Auto) [place] % (Auto) 7.7 H Eos % (Auto) Lymph # 0.9 L [place] # Eos # Seg Neutrophils % 74.6 H Seg Neuts % (Manual) Lymphocytes % (Manual) Monocytes % (Manual) Eosinophils % (Manual) Nucleated RBC % Seg Neutrophils # Seg Neutrophils # Man Lymphocytes # (Manual) Monocytes # (Manual) Eosinophils # (Manual) PT INR D-Dimer Heparin Anti-Xa Level POC ABG pH ABG pH POC ABG pCO2 POC ABG pO2 ABG pO2 ABG HCO3 ABG O2 Saturation ABG Base Excess ABG Hemoglobin Oxyhemoglobin Sodium 136 L Potassium Chloride 97.0 L Carbon Dioxide BUN 58 H Creatinine 7.3 H Glucose POC Glucose 106 H Lactic Acid Calcium 7.5 L Ionized Calcium Phosphorus 5.80 H D Magnesium Iron TIBC Ferritin Total Bilirubin Direct Bilirubin AST ALT Alkaline Phosphatase Total Creatine Kinase CK-MB (CK-2) Troponin T C-Reactive Protein Serum Total Protein Total Protein Albumin Wmpaf-4-Remjkudnt Byvcj-9-Ehohamqix PEP Interpretation Triglycerides LDL Cholesterol Direct HDL Cholesterol Free T4 PTH Intact Urine WBC (Auto) Urine Creatinine Salicylates Acetaminophen Crossmatch 04/03/19 04/04/19 04/04/19 23:43 04:47 04:47 WBC RBC 2.72 L Hgb 8.3 L Hct 24.7 L MCV MCH MCHC RDW 15.6 H Plt Count Lymph % (Auto) [place] % (Auto) 10.1 H Eos % (Auto) Lymph # 0.8 L [place] # Eos # Seg Neutrophils % 71.4 H Seg Neuts % (Manual) Lymphocytes % (Manual) Monocytes % (Manual) Eosinophils % (Manual) Nucleated RBC % Seg Neutrophils # Seg Neutrophils # Man Lymphocytes # (Manual) Monocytes # (Manual) Eosinophils # (Manual) PT INR D-Dimer Heparin Anti-Xa Level POC ABG pH ABG pH POC ABG pCO2 POC ABG pO2 ABG pO2 123.8 H ABG HCO3 ABG O2 Saturation ABG Base Excess -3.0 L ABG Hemoglobin 7.9 L Oxyhemoglobin Sodium 134 L Potassium Chloride 97.9 L Carbon Dioxide BUN 64 H Creatinine 8.1 H Glucose POC Glucose Lactic Acid Calcium 7.2 L Ionized Calcium Phosphorus Magnesium Iron TIBC Ferritin Total Bilirubin Direct Bilirubin AST ALT Alkaline Phosphatase Total Creatine Kinase CK-MB (CK-2) Troponin T C-Reactive Protein Serum Total Protein Total Protein Albumin Niujz-5-Satjwdaoq Lnddm-1-Kdlfhgrir PEP Interpretation Triglycerides LDL Cholesterol Direct HDL Cholesterol Free T4 PTH Intact Urine WBC (Auto) Urine Creatinine Salicylates Acetaminophen Crossmatch 04/04/19 04/04/19 04/04/19 06:07 13:40 18:18 WBC RBC Hgb Hct MCV MCH MCHC RDW Plt Count Lymph % (Auto) [place] % (Auto) Eos % (Auto) Lymph # [place] # Eos # Seg Neutrophils % Seg Neuts % (Manual) Lymphocytes % (Manual) Monocytes % (Manual) Eosinophils % (Manual) Nucleated RBC % Seg Neutrophils # Seg Neutrophils # Man Lymphocytes # (Manual) Monocytes # (Manual) Eosinophils # (Manual) PT INR D-Dimer Heparin Anti-Xa Level POC ABG pH ABG pH POC ABG pCO2 POC ABG pO2 ABG pO2 95.9 H ABG HCO3 ABG O2 Saturation ABG Base Excess -3.0 L ABG Hemoglobin 8.5 L Oxyhemoglobin Sodium Potassium Chloride Carbon Dioxide BUN Creatinine Glucose POC Glucose 107 H 107 H Lactic Acid Calcium Ionized Calcium Phosphorus Magnesium Iron TIBC Ferritin Total Bilirubin Direct Bilirubin AST ALT Alkaline Phosphatase Total Creatine Kinase CK-MB (CK-2) Troponin T C-Reactive Protein Serum Total Protein Total Protein Albumin Pmcof-9-Xcsvhszpc Ghtze-9-Riziczbzz PEP Interpretation Triglycerides LDL Cholesterol Direct HDL Cholesterol Free T4 PTH Intact Urine WBC (Auto) Urine Creatinine Salicylates Acetaminophen Crossmatch 04/04/19 04/05/19 04/05/19 21:22 04:09 04:09 WBC RBC 2.76 L Hgb 8.4 L Hct 25.4 L MCV MCH MCHC RDW 15.8 H Plt Count 133 L Lymph % (Auto) [place] % (Auto) 9.6 H Eos % (Auto) Lymph # 0.7 L [place] # Eos # Seg Neutrophils % 72.6 H Seg Neuts % (Manual) Lymphocytes % (Manual) Monocytes % (Manual) Eosinophils % (Manual) Nucleated RBC % Seg Neutrophils # Seg Neutrophils # Man Lymphocytes # (Manual) Monocytes # (Manual) Eosinophils # (Manual) PT INR D-Dimer Heparin Anti-Xa Level POC ABG pH ABG pH POC ABG pCO2 47.2 H POC ABG pO2 137 H ABG pO2 ABG HCO3 ABG O2 Saturation ABG Base Excess ABG Hemoglobin Oxyhemoglobin Sodium 136 L Potassium Chloride Carbon Dioxide BUN 46 H Creatinine 6.7 H Glucose POC Glucose Lactic Acid Calcium 7.7 L Ionized Calcium Phosphorus Magnesium Iron TIBC Ferritin Total Bilirubin Direct Bilirubin AST ALT Alkaline Phosphatase Total Creatine Kinase CK-MB (CK-2) Troponin T C-Reactive Protein Serum Total Protein Total Protein Albumin Ufoye-4-Xubzoovfr Kolmm-5-Lprjqfltc PEP Interpretation Triglycerides LDL Cholesterol Direct HDL Cholesterol Free T4 PTH Intact Urine WBC (Auto) Urine Creatinine Salicylates Acetaminophen Crossmatch 04/05/19 04/05/19 04/05/19 05:28 06:14 16:50 WBC RBC Hgb Hct MCV MCH MCHC RDW Plt Count Lymph % (Auto) [place] % (Auto) Eos % (Auto) Lymph # [place] # Eos # Seg Neutrophils % Seg Neuts % (Manual) Lymphocytes % (Manual) Monocytes % (Manual) Eosinophils % (Manual) Nucleated RBC % Seg Neutrophils # Seg Neutrophils # Man Lymphocytes # (Manual) Monocytes # (Manual) Eosinophils # (Manual) PT INR D-Dimer Heparin Anti-Xa Level POC ABG pH ABG pH POC ABG pCO2 POC ABG pO2 67 L ABG pO2 ABG HCO3 ABG O2 Saturation ABG Base Excess ABG Hemoglobin Oxyhemoglobin Sodium Potassium Chloride Carbon Dioxide BUN Creatinine Glucose POC Glucose 108 H Lactic Acid Calcium Ionized Calcium Phosphorus Magnesium Iron TIBC Ferritin Total Bilirubin Direct Bilirubin AST ALT Alkaline Phosphatase Total Creatine Kinase CK-MB (CK-2) Troponin T C-Reactive Protein Serum Total Protein Total Protein Albumin Cvwxn-4-Ucuaeumgf Nqait-0-Rbslmnzel PEP Interpretation Triglycerides LDL Cholesterol Direct HDL Cholesterol Free T4 PTH Intact Urine WBC (Auto) 40.0 H Urine Creatinine Salicylates Acetaminophen Crossmatch 04/05/19 04/06/19 04/06/19 17:22 00:13 04:44 WBC RBC 2.48 L Hgb 7.5 L Hct 22.9 L MCV MCH MCHC RDW 16.0 H Plt Count 107 L Lymph % (Auto) [place] % (Auto) 10.7 H Eos % (Auto) Lymph # 1.0 L [place] # Eos # Seg Neutrophils % Seg Neuts % (Manual) Lymphocytes % (Manual) Monocytes % (Manual) Eosinophils % (Manual) Nucleated RBC % Seg Neutrophils # Seg Neutrophils # Man Lymphocytes # (Manual) Monocytes # (Manual) Eosinophils # (Manual) PT INR D-Dimer Heparin Anti-Xa Level POC ABG pH ABG pH POC ABG pCO2 POC ABG pO2 ABG pO2 ABG HCO3 ABG O2 Saturation ABG Base Excess ABG Hemoglobin Oxyhemoglobin Sodium Potassium Chloride Carbon Dioxide BUN Creatinine Glucose POC Glucose 118 H 138 H Lactic Acid Calcium Ionized Calcium Phosphorus Magnesium Iron TIBC Ferritin Total Bilirubin Direct Bilirubin AST ALT Alkaline Phosphatase Total Creatine Kinase CK-MB (CK-2) Troponin T C-Reactive Protein Serum Total Protein Total Protein Albumin Jnhki-2-Ycdaocqmo Flxid-7-Pwxhxytct PEP Interpretation Triglycerides LDL Cholesterol Direct HDL Cholesterol Free T4 PTH Intact Urine WBC (Auto) Urine Creatinine Salicylates Acetaminophen Crossmatch 04/06/19 04/06/19 04/06/19 04:44 05:20 05:23 WBC RBC Hgb Hct MCV MCH MCHC RDW Plt Count Lymph % (Auto) [place] % (Auto) Eos % (Auto) Lymph # [place] # Eos # Seg Neutrophils % Seg Neuts % (Manual) Lymphocytes % (Manual) Monocytes % (Manual) Eosinophils % (Manual) Nucleated RBC % Seg Neutrophils # Seg Neutrophils # Man Lymphocytes # (Manual) Monocytes # (Manual) Eosinophils # (Manual) PT INR D-Dimer Heparin Anti-Xa Level POC ABG pH ABG pH POC ABG pCO2 POC ABG pO2 ABG pO2 104.0 H ABG HCO3 ABG O2 Saturation ABG Base Excess -2.1 L ABG Hemoglobin 7.3 L Oxyhemoglobin Sodium Potassium Chloride Carbon Dioxide BUN 64 H Creatinine 8.2 H Glucose 103 H POC Glucose 118 H Lactic Acid Calcium 7.3 L Ionized Calcium Phosphorus Magnesium Iron TIBC Ferritin Total Bilirubin Direct Bilirubin AST ALT Alkaline Phosphatase Total Creatine Kinase CK-MB (CK-2) Troponin T C-Reactive Protein Serum Total Protein Total Protein Albumin Qcgxn-6-Hjnxzuakc Coytm-1-Cbrbutsib PEP Interpretation Triglycerides LDL Cholesterol Direct HDL Cholesterol Free T4 PTH Intact Urine WBC (Auto) Urine Creatinine Salicylates Acetaminophen Crossmatch 04/06/19 04/07/19 04/07/19 12:02 05:40 05:40 WBC RBC 2.59 L Hgb 7.9 L Hct 23.8 L MCV MCH MCHC RDW 15.8 H Plt Count 89 L Lymph % (Auto) [place] % (Auto) 10.3 H Eos % (Auto) Lymph # 1.1 L [place] # Eos # Seg Neutrophils % Seg Neuts % (Manual) Lymphocytes % (Manual) Monocytes % (Manual) Eosinophils % (Manual) Nucleated RBC % Seg Neutrophils # Seg Neutrophils # Man Lymphocytes # (Manual) Monocytes # (Manual) Eosinophils # (Manual) PT INR D-Dimer Heparin Anti-Xa Level POC ABG pH ABG pH POC ABG pCO2 POC ABG pO2 ABG pO2 ABG HCO3 ABG O2 Saturation ABG Base Excess ABG Hemoglobin Oxyhemoglobin Sodium 136 L Potassium 3.5 L Chloride Carbon Dioxide BUN 46 H Creatinine 6.2 H Glucose POC Glucose 108 H Lactic Acid Calcium 7.9 L Ionized Calcium Phosphorus Magnesium Iron TIBC Ferritin Total Bilirubin Direct Bilirubin AST ALT Alkaline Phosphatase Total Creatine Kinase CK-MB (CK-2) Troponin T C-Reactive Protein Serum Total Protein Total Protein Albumin Lnzjr-2-Wxozasonp Lqlvn-4-Mmpvzmxsw PEP Interpretation Triglycerides LDL Cholesterol Direct HDL Cholesterol Free T4 PTH Intact Urine WBC (Auto) Urine Creatinine Salicylates Acetaminophen Crossmatch 04/07/19 04/09/19 04/09/19 12:57 04:28 04:28 WBC RBC 2.85 L Hgb 8.7 L Hct 26.2 L MCV MCH MCHC RDW 15.6 H Plt Count Lymph % (Auto) [place] % (Auto) 10.4 H Eos % (Auto) Lymph # 1.0 L [place] # Eos # Seg Neutrophils % 73.3 H Seg Neuts % (Manual) Lymphocytes % (Manual) Monocytes % (Manual) Eosinophils % (Manual) Nucleated RBC % Seg Neutrophils # Seg Neutrophils # Man Lymphocytes # (Manual) Monocytes # (Manual) Eosinophils # (Manual) PT INR D-Dimer Heparin Anti-Xa Level POC ABG pH ABG pH POC ABG pCO2 POC ABG pO2 107 H ABG pO2 ABG HCO3 ABG O2 Saturation ABG Base Excess ABG Hemoglobin Oxyhemoglobin Sodium Potassium 3.5 L Chloride 97.8 L Carbon Dioxide BUN 62 H Creatinine 8.1 H Glucose POC Glucose Lactic Acid Calcium 8.2 L Ionized Calcium Phosphorus 5.10 H Magnesium Iron TIBC Ferritin Total Bilirubin Direct Bilirubin AST ALT Alkaline Phosphatase Total Creatine Kinase CK-MB (CK-2) Troponin T C-Reactive Protein Serum Total Protein Total Protein Albumin Efjab-4-Tlvjwglvm Zckbc-0-Mbvslzcgq PEP Interpretation Triglycerides LDL Cholesterol Direct HDL Cholesterol Free T4 PTH Intact Urine WBC (Auto) Urine Creatinine Salicylates Acetaminophen Crossmatch 04/10/19 04/11/19 04/11/19 18:15 00:25 04:16 WBC 11.5 H RBC 2.91 L Hgb 8.9 L Hct 27.6 L MCV 95 H MCH MCHC RDW 17.5 H Plt Count Lymph % (Auto) [place] % (Auto) Eos % (Auto) Lymph # [place] # Eos # Seg Neutrophils % Seg Neuts % (Manual) 71.0 H Lymphocytes % (Manual) Monocytes % (Manual) 8.0 H Eosinophils % (Manual) Nucleated RBC % Seg Neutrophils # Seg Neutrophils # Man 8.2 H Lymphocytes # (Manual) Monocytes # (Manual) 0.9 H Eosinophils # (Manual) PT INR D-Dimer Heparin Anti-Xa Level POC ABG pH ABG pH POC ABG pCO2 POC ABG pO2 ABG pO2 ABG HCO3 ABG O2 Saturation ABG Base Excess ABG Hemoglobin Oxyhemoglobin Sodium Potassium Chloride Carbon Dioxide BUN Creatinine Glucose POC Glucose 109 H 114 H Lactic Acid Calcium Ionized Calcium Phosphorus Magnesium Iron TIBC Ferritin Total Bilirubin Direct Bilirubin AST ALT Alkaline Phosphatase Total Creatine Kinase CK-MB (CK-2) Troponin T C-Reactive Protein Serum Total Protein Total Protein Albumin Rbiuw-0-Vzggcbibw Gvppr-8-Ihztmilks PEP Interpretation Triglycerides LDL Cholesterol Direct HDL Cholesterol Free T4 PTH Intact Urine WBC (Auto) Urine Creatinine Salicylates Acetaminophen Crossmatch 04/11/19 04/11/19 04/11/19 06:47 09:21 12:15 WBC RBC Hgb Hct MCV MCH MCHC RDW Plt Count Lymph % (Auto) [place] % (Auto) Eos % (Auto) Lymph # [place] # Eos # Seg Neutrophils % Seg Neuts % (Manual) Lymphocytes % (Manual) Monocytes % (Manual) Eosinophils % (Manual) Nucleated RBC % Seg Neutrophils # Seg Neutrophils # Man Lymphocytes # (Manual) Monocytes # (Manual) Eosinophils # (Manual) PT INR D-Dimer Heparin Anti-Xa Level POC ABG pH ABG pH POC ABG pCO2 POC ABG pO2 ABG pO2 ABG HCO3 ABG O2 Saturation ABG Base Excess ABG Hemoglobin Oxyhemoglobin Sodium Potassium 3.5 L Chloride Carbon Dioxide BUN 45 H Creatinine 6.0 H Glucose 113 H POC Glucose 106 H 109 H Lactic Acid Calcium Ionized Calcium Phosphorus Magnesium Iron TIBC Ferritin Total Bilirubin Direct Bilirubin AST ALT Alkaline Phosphatase Total Creatine Kinase CK-MB (CK-2) Troponin T C-Reactive Protein Serum Total Protein Total Protein Albumin Fazup-7-Ibucaeifc Jdeaz-9-Xjowxboqt PEP Interpretation Triglycerides LDL Cholesterol Direct HDL Cholesterol Free T4 PTH Intact Urine WBC (Auto) Urine Creatinine Salicylates Acetaminophen Crossmatch 04/11/19 04/12/19 04/12/19 18:42 12:13 23:52 WBC RBC Hgb Hct MCV MCH MCHC RDW Plt Count Lymph % (Auto) [place] % (Auto) Eos % (Auto) Lymph # [place] # Eos # Seg Neutrophils % Seg Neuts % (Manual) Lymphocytes % (Manual) Monocytes % (Manual) Eosinophils % (Manual) Nucleated RBC % Seg Neutrophils # Seg Neutrophils # Man Lymphocytes # (Manual) Monocytes # (Manual) Eosinophils # (Manual) PT INR D-Dimer Heparin Anti-Xa Level POC ABG pH ABG pH POC ABG pCO2 POC ABG pO2 ABG pO2 ABG HCO3 ABG O2 Saturation ABG Base Excess ABG Hemoglobin Oxyhemoglobin Sodium Potassium Chloride Carbon Dioxide BUN Creatinine Glucose POC Glucose 107 H 115 H 124 H Lactic Acid Calcium Ionized Calcium Phosphorus Magnesium Iron TIBC Ferritin Total Bilirubin Direct Bilirubin AST ALT Alkaline Phosphatase Total Creatine Kinase CK-MB (CK-2) Troponin T C-Reactive Protein Serum Total Protein Total Protein Albumin Tocof-5-Blopfiaie Ktwbg-1-Cyaavdndl PEP Interpretation Triglycerides LDL Cholesterol Direct HDL Cholesterol Free T4 PTH Intact Urine WBC (Auto) Urine Creatinine Salicylates Acetaminophen Crossmatch 04/13/19 04/13/19 04/13/19 05:00 05:00 05:47 WBC 11.7 H RBC 2.97 L Hgb 8.8 L Hct 27.3 L MCV MCH MCHC RDW 16.1 H Plt Count Lymph % (Auto) 9.5 L [place] % (Auto) 9.9 H Eos % (Auto) Lymph # 1.1 L [place] # 1.2 H Eos # Seg Neutrophils % 78.6 H Seg Neuts % (Manual) Lymphocytes % (Manual) Monocytes % (Manual) Eosinophils % (Manual) Nucleated RBC % Seg Neutrophils # 9.2 H Seg Neutrophils # Man Lymphocytes # (Manual) Monocytes # (Manual) Eosinophils # (Manual) PT INR D-Dimer Heparin Anti-Xa Level POC ABG pH ABG pH POC ABG pCO2 POC ABG pO2 ABG pO2 ABG HCO3 ABG O2 Saturation ABG Base Excess ABG Hemoglobin Oxyhemoglobin Sodium Potassium 3.5 L Chloride Carbon Dioxide BUN 42 H Creatinine 4.6 H Glucose 106 H POC Glucose 107 H Lactic Acid Calcium 10.6 H D Ionized Calcium Phosphorus 5.90 H Magnesium Iron TIBC Ferritin Total Bilirubin Direct Bilirubin AST ALT Alkaline Phosphatase Total Creatine Kinase CK-MB (CK-2) Troponin T C-Reactive Protein Serum Total Protein Total Protein 5.8 L Albumin 2.5 L Odhen-4-Lrwqbnmvz Fqsbv-6-Etjmmsqwh PEP Interpretation Triglycerides LDL Cholesterol Direct HDL Cholesterol Free T4 PTH Intact Urine WBC (Auto) Urine Creatinine Salicylates Acetaminophen Crossmatch 04/13/19 04/14/19 04/14/19 17:32 00:00 03:55 WBC RBC Hgb Hct MCV MCH MCHC RDW Plt Count Lymph % (Auto) [place] % (Auto) Eos % (Auto) Lymph # [place] # Eos # Seg Neutrophils % Seg Neuts % (Manual) Lymphocytes % (Manual) Monocytes % (Manual) Eosinophils % (Manual) Nucleated RBC % Seg Neutrophils # Seg Neutrophils # Man Lymphocytes # (Manual) Monocytes # (Manual) Eosinophils # (Manual) PT INR D-Dimer Heparin Anti-Xa Level POC ABG pH ABG pH POC ABG pCO2 POC ABG pO2 ABG pO2 ABG HCO3 ABG O2 Saturation ABG Base Excess ABG Hemoglobin Oxyhemoglobin Sodium Potassium 3.0 L Chloride Carbon Dioxide BUN 30 H Creatinine 3.1 H Glucose POC Glucose 112 H 120 H Lactic Acid Calcium 10.8 H Ionized Calcium Phosphorus Magnesium Iron TIBC Ferritin Total Bilirubin Direct Bilirubin AST ALT Alkaline Phosphatase Total Creatine Kinase CK-MB (CK-2) Troponin T C-Reactive Protein Serum Total Protein Total Protein Albumin Aeiaa-0-Wlctsgglk Bkwaj-1-Uxuboymic PEP Interpretation Triglycerides LDL Cholesterol Direct HDL Cholesterol Free T4 PTH Intact Urine WBC (Auto) Urine Creatinine Salicylates Acetaminophen Crossmatch 04/14/19 04/14/19 04/15/19 11:56 23:28 05:11 WBC 13.0 H RBC 2.93 L Hgb 8.6 L Hct 26.5 L MCV MCH MCHC RDW 16.5 H Plt Count Lymph % (Auto) 12.2 L [place] % (Auto) 9.1 H Eos % (Auto) Lymph # [place] # 1.2 H Eos # Seg Neutrophils % 77.6 H Seg Neuts % (Manual) Lymphocytes % (Manual) Monocytes % (Manual) Eosinophils % (Manual) Nucleated RBC % Seg Neutrophils # 10.1 H Seg Neutrophils # Man Lymphocytes # (Manual) Monocytes # (Manual) Eosinophils # (Manual) PT INR D-Dimer Heparin Anti-Xa Level POC ABG pH ABG pH POC ABG pCO2 POC ABG pO2 ABG pO2 ABG HCO3 ABG O2 Saturation ABG Base Excess ABG Hemoglobin Oxyhemoglobin Sodium Potassium Chloride Carbon Dioxide BUN Creatinine Glucose POC Glucose 109 H 112 H Lactic Acid Calcium Ionized Calcium Phosphorus Magnesium Iron TIBC Ferritin Total Bilirubin Direct Bilirubin AST ALT Alkaline Phosphatase Total Creatine Kinase CK-MB (CK-2) Troponin T C-Reactive Protein Serum Total Protein Total Protein Albumin Lkzzo-5-Cuxmmuxwc Ynpff-9-Iijybylua PEP Interpretation Triglycerides LDL Cholesterol Direct HDL Cholesterol Free T4 PTH Intact Urine WBC (Auto) Urine Creatinine Salicylates Acetaminophen Crossmatch 04/15/19 04/15/19 04/15/19 05:11 05:31 18:03 WBC RBC Hgb Hct MCV MCH MCHC RDW Plt Count Lymph % (Auto) [place] % (Auto) Eos % (Auto) Lymph # [place] # Eos # Seg Neutrophils % Seg Neuts % (Manual) Lymphocytes % (Manual) Monocytes % (Manual) Eosinophils % (Manual) Nucleated RBC % Seg Neutrophils # Seg Neutrophils # Man Lymphocytes # (Manual) Monocytes # (Manual) Eosinophils # (Manual) PT INR D-Dimer Heparin Anti-Xa Level POC ABG pH ABG pH POC ABG pCO2 POC ABG pO2 ABG pO2 ABG HCO3 ABG O2 Saturation ABG Base Excess ABG Hemoglobin Oxyhemoglobin Sodium Potassium 3.2 L Chloride Carbon Dioxide BUN 44 H Creatinine 3.6 H Glucose 106 H POC Glucose 110 H 121 H Lactic Acid Calcium 12.0 H Ionized Calcium Phosphorus 5.00 H Magnesium Iron TIBC Ferritin Total Bilirubin Direct Bilirubin AST ALT Alkaline Phosphatase Total Creatine Kinase CK-MB (CK-2) Troponin T C-Reactive Protein Serum Total Protein Total Protein Albumin Yabvh-8-Fxvqrjncw Hsvdq-9-Eteyshvxv PEP Interpretation Triglycerides LDL Cholesterol Direct HDL Cholesterol Free T4 PTH Intact Urine WBC (Auto) Urine Creatinine Salicylates Acetaminophen Crossmatch 04/16/19 04/16/19 04/17/19 05:07 05:07 04:15 WBC 12.6 H RBC 3.12 L Hgb 9.0 L Hct 28.2 L MCV MCH MCHC RDW 16.6 H Plt Count Lymph % (Auto) 10.3 L [place] % (Auto) 9.8 H Eos % (Auto) Lymph # [place] # 1.2 H Eos # Seg Neutrophils % 78.2 H Seg Neuts % (Manual) Lymphocytes % (Manual) Monocytes % (Manual) Eosinophils % (Manual) Nucleated RBC % Seg Neutrophils # 9.9 H Seg Neutrophils # Man Lymphocytes # (Manual) Monocytes # (Manual) Eosinophils # (Manual) PT INR D-Dimer Heparin Anti-Xa Level POC ABG pH ABG pH POC ABG pCO2 POC ABG pO2 ABG pO2 ABG HCO3 ABG O2 Saturation ABG Base Excess ABG Hemoglobin Oxyhemoglobin Sodium 147 H 150 H Potassium 3.5 L 3.1 L Chloride Carbon Dioxide 32 H BUN 54 H 65 H Creatinine 3.8 H 4.0 H Glucose 102 H 107 H POC Glucose Lactic Acid Calcium 11.7 H 12.0 H Ionized Calcium Phosphorus 5.40 H Magnesium Iron TIBC Ferritin Total Bilirubin Direct Bilirubin AST ALT Alkaline Phosphatase Total Creatine Kinase CK-MB (CK-2) Troponin T C-Reactive Protein 7.10 H Serum Total Protein Total Protein Albumin Wzwvz-5-Bylqwsigy Kverf-3-Uwctbqmqq PEP Interpretation Triglycerides LDL Cholesterol Direct HDL Cholesterol Free T4 PTH Intact Urine WBC (Auto) Urine Creatinine Salicylates Acetaminophen Crossmatch 04/17/19 04/17/19 04/17/19 04:15 06:05 12:49 WBC 15.8 H RBC 3.32 L Hgb 9.5 L Hct 29.9 L MCV MCH MCHC RDW 16.9 H Plt Count Lymph % (Auto) 12.6 L [place] % (Auto) 11.1 H Eos % (Auto) Lymph # [place] # 1.7 H Eos # Seg Neutrophils % 74.7 H Seg Neuts % (Manual) Lymphocytes % (Manual) Monocytes % (Manual) Eosinophils % (Manual) Nucleated RBC % Seg Neutrophils # 11.8 H Seg Neutrophils # Man Lymphocytes # (Manual) Monocytes # (Manual) Eosinophils # (Manual) PT INR D-Dimer Heparin Anti-Xa Level POC ABG pH ABG pH POC ABG pCO2 POC ABG pO2 ABG pO2 ABG HCO3 ABG O2 Saturation ABG Base Excess ABG Hemoglobin Oxyhemoglobin Sodium Potassium Chloride Carbon Dioxide BUN Creatinine Glucose POC Glucose 111 H 108 H Lactic Acid Calcium Ionized Calcium Phosphorus Magnesium Iron TIBC Ferritin Total Bilirubin Direct Bilirubin AST ALT Alkaline Phosphatase Total Creatine Kinase CK-MB (CK-2) Troponin T C-Reactive Protein Serum Total Protein Total Protein Albumin Ookbt-8-Kvfxorxey Moeqp-0-Kzxfiqfiy PEP Interpretation Triglycerides LDL Cholesterol Direct HDL Cholesterol Free T4 PTH Intact Urine WBC (Auto) Urine Creatinine Salicylates Acetaminophen Crossmatch 04/18/19 04/18/19 04/18/19 00:23 04:41 04:41 WBC 19.4 H RBC 3.03 L Hgb 8.6 L Hct 27.5 L MCV MCH MCHC 31 L RDW 16.9 H Plt Count Lymph % (Auto) [place] % (Auto) Eos % (Auto) Lymph # [place] # Eos # Seg Neutrophils % Seg Neuts % (Manual) Lymphocytes % (Manual) Monocytes % (Manual) Eosinophils % (Manual) Nucleated RBC % Seg Neutrophils # Seg Neutrophils # Man Lymphocytes # (Manual) Monocytes # (Manual) Eosinophils # (Manual) PT INR D-Dimer Heparin Anti-Xa Level POC ABG pH ABG pH POC ABG pCO2 POC ABG pO2 ABG pO2 ABG HCO3 ABG O2 Saturation ABG Base Excess ABG Hemoglobin Oxyhemoglobin Sodium 152 H Potassium 3.0 L Chloride Carbon Dioxide BUN 80 H Creatinine 4.3 H Glucose 103 H POC Glucose 115 H Lactic Acid Calcium 11.4 H Ionized Calcium Phosphorus Magnesium Iron TIBC Ferritin Total Bilirubin Direct Bilirubin AST ALT Alkaline Phosphatase Total Creatine Kinase CK-MB (CK-2) Troponin T C-Reactive Protein Serum Total Protein Total Protein Albumin Hstyl-2-Pvknaduud Jlahf-0-Prdktjfap PEP Interpretation Triglycerides LDL Cholesterol Direct HDL Cholesterol Free T4 PTH Intact Urine WBC (Auto) Urine Creatinine Salicylates Acetaminophen Crossmatch 04/18/19 04/18/19 04/18/19 06:17 12:16 18:10 WBC RBC Hgb Hct MCV MCH MCHC RDW Plt Count Lymph % (Auto) [place] % (Auto) Eos % (Auto) Lymph # [place] # Eos # Seg Neutrophils % Seg Neuts % (Manual) Lymphocytes % (Manual) Monocytes % (Manual) Eosinophils % (Manual) Nucleated RBC % Seg Neutrophils # Seg Neutrophils # Man Lymphocytes # (Manual) Monocytes # (Manual) Eosinophils # (Manual) PT INR D-Dimer Heparin Anti-Xa Level POC ABG pH ABG pH POC ABG pCO2 POC ABG pO2 ABG pO2 ABG HCO3 ABG O2 Saturation ABG Base Excess ABG Hemoglobin Oxyhemoglobin Sodium Potassium Chloride Carbon Dioxide BUN Creatinine Glucose POC Glucose 124 H 119 H 111 H Lactic Acid Calcium Ionized Calcium Phosphorus Magnesium Iron TIBC Ferritin Total Bilirubin Direct Bilirubin AST ALT Alkaline Phosphatase Total Creatine Kinase CK-MB (CK-2) Troponin T C-Reactive Protein Serum Total Protein Total Protein Albumin Iiept-9-Ujdeitnxi Oneth-5-Bnjelesyh PEP Interpretation Triglycerides LDL Cholesterol Direct HDL Cholesterol Free T4 PTH Intact Urine WBC (Auto) Urine Creatinine Salicylates Acetaminophen Crossmatch 04/19/19 04/19/19 04/20/19 03:49 05:27 09:09 WBC RBC Hgb Hct MCV MCH MCHC RDW Plt Count Lymph % (Auto) [place] % (Auto) Eos % (Auto) Lymph # [place] # Eos # Seg Neutrophils % Seg Neuts % (Manual) Lymphocytes % (Manual) Monocytes % (Manual) Eosinophils % (Manual) Nucleated RBC % Seg Neutrophils # Seg Neutrophils # Man Lymphocytes # (Manual) Monocytes # (Manual) Eosinophils # (Manual) PT INR D-Dimer Heparin Anti-Xa Level POC ABG pH ABG pH POC ABG pCO2 POC ABG pO2 ABG pO2 ABG HCO3 ABG O2 Saturation ABG Base Excess ABG Hemoglobin Oxyhemoglobin Sodium 147 H 150 H Potassium 3.3 L Chloride 108.9 H Carbon Dioxide BUN 45 H 70 H Creatinine 2.9 H 4.1 H Glucose 105 H POC Glucose 124 H Lactic Acid Calcium 10.6 H 11.6 H Ionized Calcium Phosphorus Magnesium Iron TIBC Ferritin Total Bilirubin Direct Bilirubin AST ALT Alkaline Phosphatase Total Creatine Kinase CK-MB (CK-2) Troponin T C-Reactive Protein Serum Total Protein Total Protein Albumin Udaiy-2-Nujabdzcj Rgbay-2-Lobsukzdo PEP Interpretation Triglycerides LDL Cholesterol Direct HDL Cholesterol Free T4 PTH Intact Urine WBC (Auto) Urine Creatinine Salicylates Acetaminophen Crossmatch 04/20/19 04/20/19 04/21/19 12:29 18:45 01:34 WBC RBC Hgb Hct MCV MCH MCHC RDW Plt Count Lymph % (Auto) [place] % (Auto) Eos % (Auto) Lymph # [place] # Eos # Seg Neutrophils % Seg Neuts % (Manual) Lymphocytes % (Manual) Monocytes % (Manual) Eosinophils % (Manual) Nucleated RBC % Seg Neutrophils # Seg Neutrophils # Man Lymphocytes # (Manual) Monocytes # (Manual) Eosinophils # (Manual) PT INR D-Dimer Heparin Anti-Xa Level POC ABG pH ABG pH POC ABG pCO2 POC ABG pO2 ABG pO2 ABG HCO3 ABG O2 Saturation ABG Base Excess ABG Hemoglobin Oxyhemoglobin Sodium Potassium Chloride Carbon Dioxide BUN 40 H Creatinine 2.6 H Glucose 104 H POC Glucose 131 H 134 H Lactic Acid Calcium 11.0 H Ionized Calcium Phosphorus Magnesium Iron TIBC Ferritin Total Bilirubin Direct Bilirubin AST ALT Alkaline Phosphatase Total Creatine Kinase CK-MB (CK-2) Troponin T C-Reactive Protein Serum Total Protein Total Protein Albumin Kfamh-0-Wbjbzdwqw Scmmr-1-Eomvesoak PEP Interpretation Triglycerides LDL Cholesterol Direct HDL Cholesterol Free T4 PTH Intact Urine WBC (Auto) Urine Creatinine Salicylates Acetaminophen Crossmatch 04/21/19 04/21/19 04/22/19 04:22 04:22 04:24 WBC 14.2 H 14.3 H RBC 3.02 L 3.57 L Hgb 8.7 L 10.1 L Hct 27.2 L 32.1 L MCV MCH MCHC RDW 16.7 H 17.2 H Plt Count Lymph % (Auto) [place] % (Auto) Eos % (Auto) Lymph # [place] # Eos # Seg Neutrophils % Seg Neuts % (Manual) Lymphocytes % (Manual) Monocytes % (Manual) Eosinophils % (Manual) Nucleated RBC % Seg Neutrophils # Seg Neutrophils # Man Lymphocytes # (Manual) Monocytes # (Manual) Eosinophils # (Manual) PT INR D-Dimer Heparin Anti-Xa Level POC ABG pH ABG pH POC ABG pCO2 POC ABG pO2 ABG pO2 ABG HCO3 ABG O2 Saturation ABG Base Excess ABG Hemoglobin Oxyhemoglobin Sodium Potassium Chloride Carbon Dioxide BUN Creatinine Glucose POC Glucose Lactic Acid Calcium Ionized Calcium Phosphorus Magnesium Iron TIBC Ferritin Total Bilirubin Direct Bilirubin AST ALT Alkaline Phosphatase Total Creatine Kinase CK-MB (CK-2) Troponin T C-Reactive Protein Serum Total Protein 5.7 L Total Protein Albumin 2.3 L Igzre-3-Didvbdenl 0.5 H Iwphz-6-Mrlqnvugp 1.0 H PEP Interpretation see below H Triglycerides LDL Cholesterol Direct HDL Cholesterol Free T4 PTH Intact Urine WBC (Auto) Urine Creatinine Salicylates Acetaminophen Crossmatch 04/22/19 04/22/19 04/22/19 04:24 06:37 11:57 WBC RBC Hgb Hct MCV MCH MCHC RDW Plt Count Lymph % (Auto) [place] % (Auto) Eos % (Auto) Lymph # [place] # Eos # Seg Neutrophils % Seg Neuts % (Manual) Lymphocytes % (Manual) Monocytes % (Manual) Eosinophils % (Manual) Nucleated RBC % Seg Neutrophils # Seg Neutrophils # Man Lymphocytes # (Manual) Monocytes # (Manual) Eosinophils # (Manual) PT INR D-Dimer Heparin Anti-Xa Level POC ABG pH ABG pH POC ABG pCO2 POC ABG pO2 ABG pO2 ABG HCO3 ABG O2 Saturation ABG Base Excess ABG Hemoglobin Oxyhemoglobin Sodium Potassium Chloride Carbon Dioxide BUN 54 H Creatinine 3.5 H Glucose POC Glucose 113 H 110 H Lactic Acid Calcium 11.4 H Ionized Calcium Phosphorus Magnesium Iron TIBC Ferritin Total Bilirubin Direct Bilirubin AST ALT Alkaline Phosphatase Total Creatine Kinase CK-MB (CK-2) Troponin T C-Reactive Protein Serum Total Protein Total Protein Albumin Xzrzw-8-Cuavivxxg Sfsst-7-Fblhdyewc PEP Interpretation Triglycerides LDL Cholesterol Direct HDL Cholesterol Free T4 PTH Intact Urine WBC (Auto) Urine Creatinine Salicylates Acetaminophen Crossmatch 04/22/19 04/23/19 04/23/19 18:33 04:06 04:06 WBC 16.1 H RBC 3.36 L Hgb 9.8 L Hct 30.8 L MCV MCH MCHC RDW 17.7 H Plt Count Lymph % (Auto) 9.9 L [place] % (Auto) Eos % (Auto) Lymph # [place] # Eos # Seg Neutrophils % 84.2 H Seg Neuts % (Manual) Lymphocytes % (Manual) Monocytes % (Manual) Eosinophils % (Manual) Nucleated RBC % Seg Neutrophils # 13.6 H Seg Neutrophils # Man Lymphocytes # (Manual) Monocytes # (Manual) Eosinophils # (Manual) PT INR D-Dimer Heparin Anti-Xa Level POC ABG pH ABG pH POC ABG pCO2 POC ABG pO2 ABG pO2 ABG HCO3 ABG O2 Saturation ABG Base Excess ABG Hemoglobin Oxyhemoglobin Sodium Potassium Chloride Carbon Dioxide BUN 59 H Creatinine 3.8 H Glucose POC Glucose 120 H Lactic Acid Calcium 12.3 H* Ionized Calcium Phosphorus 5.70 H Magnesium Iron TIBC Ferritin Total Bilirubin Direct Bilirubin AST ALT Alkaline Phosphatase Total Creatine Kinase CK-MB (CK-2) Troponin T C-Reactive Protein Serum Total Protein Total Protein Albumin 3.2 L Vmgyl-4-Hutphfycz Ksgon-4-Jsrjqieob PEP Interpretation Triglycerides LDL Cholesterol Direct HDL Cholesterol Free T4 PTH Intact Urine WBC (Auto) Urine Creatinine Salicylates Acetaminophen Crossmatch 04/23/19 04/24/19 04/24/19 18:06 04:12 04:12 WBC 18.0 H RBC 3.46 L Hgb 9.8 L Hct 31.2 L MCV MCH MCHC 31 L RDW 17.5 H Plt Count Lymph % (Auto) 11.1 L [place] % (Auto) Eos % (Auto) Lymph # [place] # Eos # Seg Neutrophils % 81.9 H Seg Neuts % (Manual) Lymphocytes % (Manual) Monocytes % (Manual) Eosinophils % (Manual) Nucleated RBC % Seg Neutrophils # 14.7 H Seg Neutrophils # Man Lymphocytes # (Manual) Monocytes # (Manual) Eosinophils # (Manual) PT INR D-Dimer Heparin Anti-Xa Level POC ABG pH ABG pH POC ABG pCO2 POC ABG pO2 ABG pO2 ABG HCO3 ABG O2 Saturation ABG Base Excess ABG Hemoglobin Oxyhemoglobin Sodium Potassium Chloride Carbon Dioxide BUN 56 H Creatinine 3.6 H Glucose POC Glucose 124 H Lactic Acid Calcium 12.6 H* Ionized Calcium Phosphorus Magnesium Iron TIBC Ferritin Total Bilirubin Direct Bilirubin AST ALT Alkaline Phosphatase Total Creatine Kinase CK-MB (CK-2) Troponin T C-Reactive Protein Serum Total Protein Total Protein Albumin 3.2 L Aiibj-2-Wtvmtaaxc Izybo-2-Yekezkfyz PEP Interpretation Triglycerides LDL Cholesterol Direct HDL Cholesterol Free T4 PTH Intact Urine WBC (Auto) Urine Creatinine Salicylates Acetaminophen Crossmatch 04/24/19 04/24/19 04/25/19 06:21 11:47 05:58 WBC 18.0 H RBC 2.98 L Hgb 8.3 L Hct 26.5 L MCV MCH MCHC 31 L RDW 17.9 H Plt Count Lymph % (Auto) 10.1 L [place] % (Auto) Eos % (Auto) Lymph # [place] # 0.9 H Eos # Seg Neutrophils % 82.8 H Seg Neuts % (Manual) Lymphocytes % (Manual) Monocytes % (Manual) Eosinophils % (Manual) Nucleated RBC % Seg Neutrophils # 15.0 H Seg Neutrophils # Man Lymphocytes # (Manual) Monocytes # (Manual) Eosinophils # (Manual) PT INR D-Dimer Heparin Anti-Xa Level POC ABG pH ABG pH POC ABG pCO2 POC ABG pO2 ABG pO2 ABG HCO3 ABG O2 Saturation ABG Base Excess ABG Hemoglobin Oxyhemoglobin Sodium Potassium Chloride Carbon Dioxide BUN Creatinine Glucose POC Glucose 132 H 106 H Lactic Acid Calcium Ionized Calcium Phosphorus Magnesium Iron TIBC Ferritin Total Bilirubin Direct Bilirubin AST ALT Alkaline Phosphatase Total Creatine Kinase CK-MB (CK-2) Troponin T C-Reactive Protein Serum Total Protein Total Protein Albumin Vxecg-8-Kruupdzca Vfpze-3-Etxqbjoll PEP Interpretation Triglycerides LDL Cholesterol Direct HDL Cholesterol Free T4 PTH Intact Urine WBC (Auto) Urine Creatinine Salicylates Acetaminophen Crossmatch 04/25/19 04/26/19 04/26/19 05:58 05:57 06:08 WBC RBC Hgb Hct MCV MCH MCHC RDW Plt Count Lymph % (Auto) [place] % (Auto) Eos % (Auto) Lymph # [place] # Eos # Seg Neutrophils % Seg Neuts % (Manual) Lymphocytes % (Manual) Monocytes % (Manual) Eosinophils % (Manual) Nucleated RBC % Seg Neutrophils # Seg Neutrophils # Man Lymphocytes # (Manual) Monocytes # (Manual) Eosinophils # (Manual) PT INR D-Dimer Heparin Anti-Xa Level POC ABG pH ABG pH POC ABG pCO2 POC ABG pO2 ABG pO2 ABG HCO3 ABG O2 Saturation ABG Base Excess ABG Hemoglobin Oxyhemoglobin Sodium Potassium 3.2 L Chloride Carbon Dioxide BUN 52 H 48 H Creatinine 3.2 H 2.9 H Glucose 108 H 112 H POC Glucose 109 H Lactic Acid Calcium 11.4 H 12.5 H* Ionized Calcium Phosphorus 5.90 H Magnesium Iron TIBC Ferritin Total Bilirubin Direct Bilirubin AST ALT Alkaline Phosphatase Total Creatine Kinase CK-MB (CK-2) Troponin T C-Reactive Protein Serum Total Protein Total Protein Albumin 3.0 L Zwtnj-3-Qivmdaqyb Vsvkz-5-Rrkyoivun PEP Interpretation Triglycerides LDL Cholesterol Direct HDL Cholesterol Free T4 PTH Intact Urine WBC (Auto) Urine Creatinine Salicylates Acetaminophen Crossmatch 04/26/19 04/26/19 04/27/19 07:22 13:39 05:05 WBC 11.9 H RBC 3.01 L Hgb 8.6 L Hct 26.3 L MCV MCH MCHC RDW 17.6 H Plt Count Lymph % (Auto) 11.9 L [place] % (Auto) Eos % (Auto) Lymph # [place] # Eos # Seg Neutrophils % 78.3 H Seg Neuts % (Manual) Lymphocytes % (Manual) Monocytes % (Manual) Eosinophils % (Manual) Nucleated RBC % Seg Neutrophils # 9.4 H Seg Neutrophils # Man Lymphocytes # (Manual) Monocytes # (Manual) Eosinophils # (Manual) PT INR D-Dimer Heparin Anti-Xa Level POC ABG pH ABG pH POC ABG pCO2 POC ABG pO2 ABG pO2 ABG HCO3 ABG O2 Saturation ABG Base Excess ABG Hemoglobin Oxyhemoglobin Sodium Potassium Chloride Carbon Dioxide BUN 46 H Creatinine 2.8 H Glucose POC Glucose Lactic Acid Calcium > 13.0 H* 12.2 H* Ionized Calcium Phosphorus Magnesium Iron TIBC Ferritin Total Bilirubin Direct Bilirubin AST ALT Alkaline Phosphatase Total Creatine Kinase CK-MB (CK-2) Troponin T C-Reactive Protein Serum Total Protein Total Protein Albumin Wmqml-8-Nkbtkzhat Hvhxu-9-Yknqraqdw PEP Interpretation Triglycerides LDL Cholesterol Direct HDL Cholesterol Free T4 PTH Intact Urine WBC (Auto) Urine Creatinine Salicylates Acetaminophen Crossmatch 04/27/19 04/28/19 04/29/19 05:05 05:17 14:14 WBC RBC Hgb Hct MCV MCH MCHC RDW Plt Count Lymph % (Auto) [place] % (Auto) Eos % (Auto) Lymph # [place] # Eos # Seg Neutrophils % Seg Neuts % (Manual) Lymphocytes % (Manual) Monocytes % (Manual) Eosinophils % (Manual) Nucleated RBC % Seg Neutrophils # Seg Neutrophils # Man Lymphocytes # (Manual) Monocytes # (Manual) Eosinophils # (Manual) PT INR D-Dimer Heparin Anti-Xa Level POC ABG pH ABG pH POC ABG pCO2 POC ABG pO2 ABG pO2 ABG HCO3 ABG O2 Saturation ABG Base Excess ABG Hemoglobin Oxyhemoglobin Sodium 136 L Potassium 3.2 L 3.4 L Chloride Carbon Dioxide BUN 40 H 34 H 33 H Creatinine 2.5 H 2.0 H 1.9 H Glucose 113 H 107 H POC Glucose Lactic Acid Calcium 12.3 H* 12.1 H* 11.5 H Ionized Calcium Phosphorus Magnesium Iron TIBC Ferritin Total Bilirubin Direct Bilirubin AST ALT Alkaline Phosphatase Total Creatine Kinase CK-MB (CK-2) Troponin T C-Reactive Protein Serum Total Protein Total Protein 6.2 L Albumin 2.8 L Gwyrk-5-Jaemwzrzo Zddlj-0-Ejnmcelso PEP Interpretation Triglycerides LDL Cholesterol Direct HDL Cholesterol Free T4 PTH Intact Urine WBC (Auto) Urine Creatinine Salicylates Acetaminophen Crossmatch 04/29/19 04/29/19 04/30/19 14:14 14:14 06:47 WBC RBC Hgb Hct MCV MCH MCHC RDW Plt Count Lymph % (Auto) [place] % (Auto) Eos % (Auto) Lymph # [place] # Eos # Seg Neutrophils % Seg Neuts % (Manual) Lymphocytes % (Manual) Monocytes % (Manual) Eosinophils % (Manual) Nucleated RBC % Seg Neutrophils # Seg Neutrophils # Man Lymphocytes # (Manual) Monocytes # (Manual) Eosinophils # (Manual) PT INR D-Dimer Heparin Anti-Xa Level POC ABG pH ABG pH POC ABG pCO2 POC ABG pO2 ABG pO2 ABG HCO3 ABG O2 Saturation ABG Base Excess ABG Hemoglobin Oxyhemoglobin Sodium Potassium 3.2 L Chloride Carbon Dioxide 21 L BUN 26 H Creatinine 1.8 H Glucose POC Glucose Lactic Acid Calcium 10.8 H Ionized Calcium 7.2 H* Phosphorus Magnesium Iron TIBC Ferritin Total Bilirubin Direct Bilirubin AST ALT Alkaline Phosphatase Total Creatine Kinase CK-MB (CK-2) Troponin T C-Reactive Protein Serum Total Protein Total Protein Albumin Nambz-9-Ctwzfjvnd Qzkmt-7-Dwftkqgiw PEP Interpretation Triglycerides LDL Cholesterol Direct HDL Cholesterol Free T4 PTH Intact 8.83 L Urine WBC (Auto) Urine Creatinine Salicylates Acetaminophen Crossmatch 04/30/19 05/01/19 05/01/19 12:17 06:52 06:52 WBC 15.4 H RBC 3.01 L Hgb 8.4 L Hct 26.2 L MCV MCH MCHC RDW 17.0 H Plt Count Lymph % (Auto) 8.4 L [place] % (Auto) 8.9 H Eos % (Auto) Lymph # [place] # 1.4 H Eos # 0.5 H Seg Neutrophils % 78.7 H Seg Neuts % (Manual) Lymphocytes % (Manual) Monocytes % (Manual) Eosinophils % (Manual) Nucleated RBC % Seg Neutrophils # 12.1 H Seg Neutrophils # Man Lymphocytes # (Manual) Monocytes # (Manual) Eosinophils # (Manual) PT INR D-Dimer Heparin Anti-Xa Level POC ABG pH ABG pH POC ABG pCO2 POC ABG pO2 ABG pO2 ABG HCO3 ABG O2 Saturation ABG Base Excess ABG Hemoglobin Oxyhemoglobin Sodium Potassium 3.0 L Chloride Carbon Dioxide BUN 22 H Creatinine Glucose POC Glucose 106 H Lactic Acid Calcium 11.2 H Ionized Calcium Phosphorus Magnesium Iron TIBC Ferritin Total Bilirubin Direct Bilirubin AST ALT Alkaline Phosphatase Total Creatine Kinase CK-MB (CK-2) Troponin T C-Reactive Protein Serum Total Protein Total Protein Albumin 3.0 L Fizpe-2-Dmdusfquz Txvat-7-Dksisqspy PEP Interpretation Triglycerides LDL Cholesterol Direct HDL Cholesterol Free T4 PTH Intact Urine WBC (Auto) Urine Creatinine Salicylates Acetaminophen Crossmatch 05/01/19 05/01/19 05/02/19 06:52 18:40 05:32 WBC RBC Hgb Hct MCV MCH MCHC RDW Plt Count Lymph % (Auto) [place] % (Auto) Eos % (Auto) Lymph # [place] # Eos # Seg Neutrophils % Seg Neuts % (Manual) Lymphocytes % (Manual) Monocytes % (Manual) Eosinophils % (Manual) Nucleated RBC % Seg Neutrophils # Seg Neutrophils # Man Lymphocytes # (Manual) Monocytes # (Manual) Eosinophils # (Manual) PT INR D-Dimer Heparin Anti-Xa Level POC ABG pH ABG pH POC ABG pCO2 POC ABG pO2 ABG pO2 ABG HCO3 ABG O2 Saturation ABG Base Excess ABG Hemoglobin Oxyhemoglobin Sodium Potassium Chloride Carbon Dioxide BUN Creatinine Glucose POC Glucose 169 H 109 H Lactic Acid Calcium Ionized Calcium Phosphorus Magnesium Iron TIBC Ferritin Total Bilirubin Direct Bilirubin AST ALT Alkaline Phosphatase Total Creatine Kinase CK-MB (CK-2) Troponin T C-Reactive Protein Serum Total Protein 5.7 L Total Protein Albumin 2.5 L Tzbri-3-Vmjwvniix 0.5 H Olobj-7-Nuoulmttt PEP Interpretation see below H Triglycerides LDL Cholesterol Direct HDL Cholesterol Free T4 PTH Intact Urine WBC (Auto) Urine Creatinine Salicylates Acetaminophen Crossmatch 05/02/19 05/02/19 05/02/19 05:57 05:57 11:43 WBC 14.2 H RBC 2.96 L Hgb 8.3 L Hct 26.0 L MCV MCH MCHC RDW 16.8 H Plt Count Lymph % (Auto) [place] % (Auto) Eos % (Auto) Lymph # [place] # Eos # Seg Neutrophils % Seg Neuts % (Manual) Lymphocytes % (Manual) Monocytes % (Manual) Eosinophils % (Manual) Nucleated RBC % Seg Neutrophils # Seg Neutrophils # Man Lymphocytes # (Manual) Monocytes # (Manual) Eosinophils # (Manual) PT INR D-Dimer Heparin Anti-Xa Level POC ABG pH ABG pH POC ABG pCO2 POC ABG pO2 ABG pO2 ABG HCO3 ABG O2 Saturation ABG Base Excess ABG Hemoglobin Oxyhemoglobin Sodium 136 L Potassium 3.5 L Chloride Carbon Dioxide BUN 21 H Creatinine Glucose POC Glucose 108 H Lactic Acid Calcium 11.1 H Ionized Calcium Phosphorus Magnesium Iron TIBC Ferritin Total Bilirubin Direct Bilirubin AST ALT Alkaline Phosphatase Total Creatine Kinase CK-MB (CK-2) Troponin T C-Reactive Protein Serum Total Protein Total Protein Albumin Xtagb-8-Kfzpctmmi Ytxmu-6-Fnxdzyzxz PEP Interpretation Triglycerides LDL Cholesterol Direct HDL Cholesterol Free T4 PTH Intact Urine WBC (Auto) Urine Creatinine Salicylates Acetaminophen Crossmatch 05/03/19 05/03/19 05/04/19 05:37 05:37 06:49 WBC 12.7 H 11.1 H RBC 3.01 L 3.07 L Hgb 8.3 L 8.6 L Hct 26.1 L 26.6 L MCV MCH MCHC RDW 16.9 H 17.3 H Plt Count Lymph % (Auto) [place] % (Auto) 9.0 H Eos % (Auto) 4.9 H Lymph # [place] # 1.0 H Eos # 0.5 H Seg Neutrophils % Seg Neuts % (Manual) Lymphocytes % (Manual) Monocytes % (Manual) Eosinophils % (Manual) Nucleated RBC % Seg Neutrophils # 7.8 H Seg Neutrophils # Man Lymphocytes # (Manual) Monocytes # (Manual) Eosinophils # (Manual) PT INR D-Dimer Heparin Anti-Xa Level POC ABG pH ABG pH POC ABG pCO2 POC ABG pO2 ABG pO2 ABG HCO3 ABG O2 Saturation ABG Base Excess ABG Hemoglobin Oxyhemoglobin Sodium 135 L Potassium 3.3 L Chloride Carbon Dioxide BUN Creatinine Glucose POC Glucose Lactic Acid Calcium 10.9 H Ionized Calcium Phosphorus Magnesium 1.50 L Iron TIBC Ferritin Total Bilirubin Direct Bilirubin AST ALT Alkaline Phosphatase Total Creatine Kinase CK-MB (CK-2) Troponin T C-Reactive Protein Serum Total Protein Total Protein Albumin Ljmqu-4-Sgnnongwd Ovsdb-8-Frlnylnnt PEP Interpretation Triglycerides LDL Cholesterol Direct HDL Cholesterol Free T4 PTH Intact Urine WBC (Auto) Urine Creatinine Salicylates Acetaminophen Crossmatch 05/04/19 05/04/19 05/04/19 06:49 06:49 11:58 WBC RBC Hgb Hct MCV MCH MCHC RDW Plt Count Lymph % (Auto) [place] % (Auto) Eos % (Auto) Lymph # [place] # Eos # Seg Neutrophils % Seg Neuts % (Manual) Lymphocytes % (Manual) Monocytes % (Manual) Eosinophils % (Manual) Nucleated RBC % Seg Neutrophils # Seg Neutrophils # Man Lymphocytes # (Manual) Monocytes # (Manual) Eosinophils # (Manual) PT 15.5 H INR 1.24 H D-Dimer Heparin Anti-Xa Level POC ABG pH ABG pH POC ABG pCO2 POC ABG pO2 ABG pO2 ABG HCO3 ABG O2 Saturation ABG Base Excess ABG Hemoglobin Oxyhemoglobin Sodium Potassium Chloride Carbon Dioxide 19 L BUN Creatinine Glucose POC Glucose 111 H Lactic Acid Calcium 10.7 H Ionized Calcium Phosphorus Magnesium Iron TIBC Ferritin Total Bilirubin Direct Bilirubin AST ALT Alkaline Phosphatase Total Creatine Kinase CK-MB (CK-2) Troponin T C-Reactive Protein Serum Total Protein Total Protein Albumin Qtlxn-1-Zciohkiqh Fqjiy-6-Uxewmeiwj PEP Interpretation Triglycerides LDL Cholesterol Direct HDL Cholesterol Free T4 PTH Intact Urine WBC (Auto) Urine Creatinine Salicylates Acetaminophen Crossmatch 05/05/19 05/05/19 05/07/19 06:14 06:14 05:55 WBC 11.5 H 12.0 H RBC 3.08 L 3.33 L Hgb 8.5 L 9.2 L Hct 26.5 L 28.5 L MCV MCH MCHC RDW 17.1 H 17.6 H Plt Count Lymph % (Auto) [place] % (Auto) Eos % (Auto) 8.2 H Lymph # [place] # Eos # 1.0 H Seg Neutrophils % Seg Neuts % (Manual) Lymphocytes % (Manual) Monocytes % (Manual) Eosinophils % (Manual) Nucleated RBC % Seg Neutrophils # 8.2 H Seg Neutrophils # Man Lymphocytes # (Manual) Monocytes # (Manual) Eosinophils # (Manual) PT INR D-Dimer Heparin Anti-Xa Level POC ABG pH ABG pH POC ABG pCO2 POC ABG pO2 ABG pO2 ABG HCO3 ABG O2 Saturation ABG Base Excess ABG Hemoglobin Oxyhemoglobin Sodium 136 L Potassium Chloride Carbon Dioxide 21 L BUN Creatinine Glucose POC Glucose Lactic Acid Calcium 10.3 H Ionized Calcium Phosphorus Magnesium Iron TIBC Ferritin Total Bilirubin Direct Bilirubin AST ALT Alkaline Phosphatase Total Creatine Kinase CK-MB (CK-2) Troponin T C-Reactive Protein Serum Total Protein Total Protein Albumin Hhgvg-8-Fjtauayzj Ldqra-6-Xvdhexlxl PEP Interpretation Triglycerides LDL Cholesterol Direct HDL Cholesterol Free T4 PTH Intact Urine WBC (Auto) Urine Creatinine Salicylates Acetaminophen Crossmatch 05/07/19 05/08/19 05/08/19 05:55 07:27 07:27 WBC 12.5 H RBC 3.50 L Hgb 9.4 L Hct 30.4 L MCV MCH 27 L MCHC 31 L RDW 17.2 H Plt Count Lymph % (Auto) [place] % (Auto) Eos % (Auto) 10.3 H Lymph # [place] # Eos # 1.3 H Seg Neutrophils % Seg Neuts % (Manual) Lymphocytes % (Manual) Monocytes % (Manual) Eosinophils % (Manual) Nucleated RBC % Seg Neutrophils # 8.7 H Seg Neutrophils # Man Lymphocytes # (Manual) Monocytes # (Manual) Eosinophils # (Manual) PT INR D-Dimer Heparin Anti-Xa Level POC ABG pH ABG pH POC ABG pCO2 POC ABG pO2 ABG pO2 ABG HCO3 ABG O2 Saturation ABG Base Excess ABG Hemoglobin Oxyhemoglobin Sodium Potassium 3.5 L Chloride Carbon Dioxide 20 L 20 L BUN Creatinine Glucose POC Glucose Lactic Acid Calcium 10.7 H 10.7 H Ionized Calcium Phosphorus Magnesium Iron TIBC Ferritin Total Bilirubin Direct Bilirubin AST ALT Alkaline Phosphatase Total Creatine Kinase CK-MB (CK-2) Troponin T C-Reactive Protein Serum Total Protein Total Protein Albumin 3.2 L 3.4 L Mhyuh-0-Skwdogpbh Abynz-9-Amliafflv PEP Interpretation Triglycerides LDL Cholesterol Direct HDL Cholesterol Free T4 PTH Intact Urine WBC (Auto) Urine Creatinine Salicylates Acetaminophen Crossmatch 05/09/19 05/09/19 05/10/19 05:41 05:41 06:42 WBC 11.7 H RBC 3.27 L Hgb 9.2 L Hct 27.9 L MCV MCH MCHC RDW 17.8 H Plt Count Lymph % (Auto) [place] % (Auto) Eos % (Auto) 14.3 H Lymph # [place] # Eos # 1.7 H Seg Neutrophils % Seg Neuts % (Manual) Lymphocytes % (Manual) Monocytes % (Manual) Eosinophils % (Manual) Nucleated RBC % Seg Neutrophils # Seg Neutrophils # Man Lymphocytes # (Manual) Monocytes # (Manual) Eosinophils # (Manual) PT INR 1.17 H D-Dimer Heparin Anti-Xa Level POC ABG pH ABG pH POC ABG pCO2 POC ABG pO2 ABG pO2 ABG HCO3 ABG O2 Saturation ABG Base Excess ABG Hemoglobin Oxyhemoglobin Sodium 136 L Potassium Chloride Carbon Dioxide 21 L BUN Creatinine Glucose POC Glucose Lactic Acid Calcium 10.6 H Ionized Calcium Phosphorus Magnesium Iron TIBC Ferritin Total Bilirubin Direct Bilirubin AST ALT Alkaline Phosphatase Total Creatine Kinase CK-MB (CK-2) Troponin T C-Reactive Protein Serum Total Protein Total Protein Albumin 3.3 L Pzrwx-3-Psvdwnmpb Gwqpv-7-Meqzqeiso PEP Interpretation Triglycerides LDL Cholesterol Direct HDL Cholesterol Free T4 PTH Intact Urine WBC (Auto) Urine Creatinine Salicylates Acetaminophen Crossmatch 05/10/19 05/11/19 05/13/19 06:42 04:40 08:32 WBC 11.8 H RBC 3.48 L Hgb 9.5 L Hct 30.0 L MCV MCH 27 L MCHC RDW 18.0 H Plt Count Lymph % (Auto) [place] % (Auto) Eos % (Auto) Lymph # [place] # Eos # Seg Neutrophils % Seg Neuts % (Manual) 73.0 H Lymphocytes % (Manual) 11.0 L Monocytes % (Manual) Eosinophils % (Manual) 12.0 H Nucleated RBC % Seg Neutrophils # Seg Neutrophils # Man 8.6 H Lymphocytes # (Manual) Monocytes # (Manual) Eosinophils # (Manual) 1.4 H PT INR D-Dimer Heparin Anti-Xa Level POC ABG pH ABG pH POC ABG pCO2 POC ABG pO2 ABG pO2 ABG HCO3 ABG O2 Saturation ABG Base Excess ABG Hemoglobin Oxyhemoglobin Sodium Potassium Chloride Carbon Dioxide 21 L 20 L BUN Creatinine Glucose POC Glucose Lactic Acid Calcium Ionized Calcium Phosphorus Magnesium Iron TIBC Ferritin Total Bilirubin Direct Bilirubin AST ALT Alkaline Phosphatase Total Creatine Kinase CK-MB (CK-2) Troponin T C-Reactive Protein Serum Total Protein Total Protein Albumin Pqhve-5-Biuexjdgn Qewen-3-Hunqzlfoh PEP Interpretation Triglycerides LDL Cholesterol Direct HDL Cholesterol Free T4 PTH Intact Urine WBC (Auto) Urine Creatinine Salicylates Acetaminophen Crossmatch 05/13/19 05/14/19 08:32 08:12 WBC RBC Hgb Hct MCV MCH MCHC RDW Plt Count Lymph % (Auto) [place] % (Auto) Eos % (Auto) Lymph # [place] # Eos # Seg Neutrophils % Seg Neuts % (Manual) Lymphocytes % (Manual) Monocytes % (Manual) Eosinophils % (Manual) Nucleated RBC % Seg Neutrophils # Seg Neutrophils # Man Lymphocytes # (Manual) Monocytes # (Manual) Eosinophils # (Manual) PT INR D-Dimer Heparin Anti-Xa Level POC ABG pH ABG pH POC ABG pCO2 POC ABG pO2 ABG pO2 ABG HCO3 ABG O2 Saturation ABG Base Excess ABG Hemoglobin Oxyhemoglobin Sodium Potassium Chloride Carbon Dioxide 17 L 18 L BUN Creatinine Glucose 73 L POC Glucose Lactic Acid Calcium Ionized Calcium Phosphorus Magnesium 1.60 L Iron TIBC Ferritin Total Bilirubin Direct Bilirubin AST ALT Alkaline Phosphatase Total Creatine Kinase CK-MB (CK-2) Troponin T C-Reactive Protein Serum Total Protein Total Protein Albumin 3.3 L Bwxxj-3-Oqxilgxlt Bugks-3-Buwtddizt PEP Interpretation Triglycerides LDL Cholesterol Direct HDL Cholesterol Free T4 PTH Intact Urine WBC (Auto) Urine Creatinine Salicylates Acetaminophen Crossmatch Allied health notes reviewed: nursing
--- NOTE | 2019-05-16 16:45 | Progress Note ---
Assessment and Plan Peripheral neuropathy. Neurology following. Patient will need EMG/MCV to rule out axonal versus demyelinating disease. Workup can be done as an outpatient. Bilateral lower extremity DVTs. Patient will be scheduled for placement of IVC filter. 3 months after discharge, the patient will need to be scheduled for IVC filter removal with repeat ultrasound at that time to evaluate the patient's bilateral lower extremity DVTs. - Acute hypoxic respiratory failure. Was intubated, but now extubated. Now on Room air. Continue BiPAP as clinically indicated. - Atrial fibrillation. Resolved. Continue Metoprolol. Cardiology following. No recurrence of AFib or VT noted for several weeks since resolution of multiple metabolic derangements and thus no plans for initiation of systemic AC or AICD implantation at this time. - Abnormal Lexiscan stress with ejection fraction of 45% S/p LHC this AM which showed normal coronaries, normal EF. - Acute blood loss anemia. Patient with GI bleed secondary to peptic ulcer disease. EGD completed per GI. Continue PRBCs as needed. - GI bleed/peptic ulcer disease. Continue PPI. Transfuse PRBCs as needed. - Sepsis/septic shock. Resolved. Continue to monitor off antibiotics - Ischemic hepatitis/shock liver. Resolved. Viral hepatitis panel negative. - Acute kidney injury. Resolved. Patient's last hemodialysis 04/20/19. Continue to monitor BMP. Avoid nephrotoxic agents. - Toxic metabolic encephalopathy. Resolved. - Swelling both upper ext L>R Doppler US : no DVT LUE - Hypokalemia. Replete potassium as needed. - Thrombocytopenia. Etiology likely secondary to sepsis. Resolved. - Rhabdomyolysis. CK normalized. Full code status Disposition. Awaiting for arrangements for SNF in [place] Subjective Date of service: 05/16/19 Principal diagnosis: Septic Shock; Ac. hypoxemic resp failure; Renzo. PNA; Rhabdomyolysis; RUBEN Interval history: No interval change Not able to walk Objective - Constitutional Vitals: Vital Signs - 12hr 05/16/19 05/16/19 05/16/19 06:08 11:20 11:50 Temperature 97.8 F Pulse Rate 90 Respiratory 18 18 Rate Blood Pressure 122/82 122/68 O2 Sat by Pulse 99 Oximetry General appearance: Present: no acute distress, well-nourished - EENT Eyes: PERRL, EOM intact ENT: hearing intact, clear oral mucosa Ears: bilateral: normal - Neck Neck: supple, normal ROM - Respiratory Respiratory effort: normal Respiratory: bilateral: CTA - Breasts Breasts: normal - Cardiovascular Heart rate: 78 Rhythm: regular Heart Sounds: Present: S1 & S2. Absent: gallop, rub Extremities: pulses intact, No edema, normal color, Full ROM - Gastrointestinal General gastrointestinal: Present: soft, non-tender, non-distended, normal bowel sounds - Genitourinary Male genitourinary: normal - Integumentary Integumentary: clear, warm, dry - Musculoskeletal Musculoskeletal: generalized weakness - Neurologic Neurologic: moves all extremities, other (Cannot walk b/c of severe weakness in both lower extremities) - Psychiatric Psychiatric: memory intact, appropriate mood/affect, intact judgment & insight - Labs CBC & Chem 7: 05/13/19 08:32 05/14/19 08:12
[2019-05-17] MEDS: GABAPENTIN 100 MG CAP PO SCH ×2 (06:02→13:51)
[2019-05-17] MEDS: HYDROcodone/ACETAMINOPHEN 5-325 MG TAB PO PRN ×3 (06:02→21:16)
--- NOTE | 2019-05-17 07:36 | Progress Note ---
Assessment and Plan Severe sepsis with shock, resolved. Acute hypoxemic respiratory failure, s/p mechanical ventilator support. Acute kidney injury secondary to ATN s/p HD- resolved. Leukocytosis-resolved Elevated serum transaminases/possible shock liver-- Resolved. Acute encephalopathy, toxic metabolic- resolved Thrombocytopenia- etiology, multifactorial- resolved RIJ non-occlusive thrombus Oropharyngeal dysphagia- resolved Acute blood loss anemia with hemorrhagic shock- resolved Critical illness myopathy Hypernatremia-resolved Continue all supportive care -prn ABG and CXR - Continue to monitor off antibiotics - prn analgesia - prn supportive blood transfusions to keep HgB > 7.0 - continue to avoid nephrotoxins - continue VTE prophylaxis - accuchecks with glycemic control per SSI for target BG of 140-180 mg/dl - avoid hypoglycemia - Continue PT/OT -Discharge planning CONDITION: IMPROVING PROGNOSIS: FAIR CODE STATUS: FULL Subjective Date of service: 05/17/19 Principal diagnosis: Septic Shock; Ac. hypoxemic resp failure; Renzo. PNA; Rh abdomyolysis; RUBEN Interval history: Patient is seen today for: Severe sepsis with shock; Acute hypoxemic respiratory failure; Aspiration pneumonia; Morbid obesity; Rhabdomyolysis; Acute kidney injury; Morbid obesity; Elevated serum transaminases/possible shock liver; Acute encephalopathy (Toxic/Met) Seen and examined at bedside; 24hour events reviewed; nursing and respiratory care staff consulted; no adverse overnight events reported to me; resting peacefully in bed; denies any chest pain, no shortness of breath. Just tired and weak, has bilateral foot drop. Continues to tolerate PT/OT. Off supplemental oxygen. Tolerating regular diet. Persistent foot drop bilaterally. On going fatigue Vitals, labs, medications, chart reviewed. Objective Vital Signs - 12hr 05/16/19 05/16/19 05/17/19 23:00 23:41 05:50 Temperature 97.5 F L 97.5 F L 98.0 F Pulse Rate 77 Respiratory 20 20 16 Rate Blood Pressure 123/75 117/78 Blood Pressure 123/75 [Right] O2 Sat by Pulse 99 Oximetry 05/17/19 05:58 Temperature Pulse Rate 81 Respiratory 18 Rate Blood Pressure Blood Pressure [Right] O2 Sat by Pulse 99 Oximetry Constitutional: alert Eyes: non-icteric ENT: oropharynx moist, other Neck: supple, no lymphadenopathy, no JVD, other (large neck circumference) Effort: normal Ascultation: Bilateral: diminished breath sounds, rales, rhonchi (scant) Percussion: Bilateral: not dull Cardiovascular: regular rate and rhythm, other ( S1,S2) Gastrointestinal: normoactive bowel sounds, soft, non-tender, non-distended, other (obese) Integumentary: normal Extremities: no cyanosis, pink and warm, pulses normal, no ischemia or petechiae Neurologic: normal mental status, non-focal exam (grossly), pupils equal and round, CN II-XII normal, other (very weak, bilateral foot drop) Psychiatric: mood appropriate, affect normal CBC and BMP: 05/20/19 06:34 05/19/19 06:47 ABG, PT/INR, D-dimer: ABG POC ABG pH 7.401 (7.35-7.45) 04/07/19 12:57 ABG pH 7.388 pH Units (7.350-7.450) 04/06/19 05:20 POC ABG pCO2 41.5 (35-45) 04/07/19 12:57 ABG pCO2 38.5 mm Hg 04/06/19 05:20 POC ABG pO2 107 (80-105) H 04/07/19 12:57 ABG pO2 104.0 mm Hg (80.0-90.0) H 04/06/19 05:20 POC ABG HCO3 25.7 (22-26 mml/L) 04/07/19 12:57 POC ABG Total CO2 27 (23-27mmol/L) 04/07/19 12:57 POC ABG O2 Sat 98 04/07/19 12:57 ABG O2 Saturation 97.8 % (95.0-99.0) 04/06/19 05:20 PT/INR, D-dimer PT 14.8 Sec. (12.2-14.9) 05/10/19 06:42 INR 1.17 (0.87-1.13) H 05/10/19 06:42 D-Dimer 4845.98 ng/mlDDU (0-234) H 03/28/19 12:00 Abnormal lab findings: Abnormal Labs 03/16/19 03/16/19 03/16/19 15:32 16:03 16:05 WBC 27.0 H RBC 5.55 H Hgb 15.7 H Hct 47.1 H MCV MCH MCHC RDW Plt Count 75 L Lymph % (Auto) [place] % (Auto) Eos % (Auto) Lymph # [place] # Eos # Seg Neutrophils % Seg Neuts % (Manual) 85.0 H Lymphocytes % (Manual) 2.0 L Monocytes % (Manual) Eosinophils % (Manual) Nucleated RBC % Seg Neutrophils # Seg Neutrophils # Man 23.0 H Lymphocytes # (Manual) 0.5 L Monocytes # (Manual) Eosinophils # (Manual) PT INR D-Dimer Heparin Anti-Xa Level POC ABG pH ABG pH POC ABG pCO2 POC ABG pO2 ABG pO2 ABG HCO3 ABG O2 Saturation ABG Base Excess ABG Hemoglobin Oxyhemoglobin Sodium 127 L Potassium Chloride 87.8 L Carbon Dioxide 17 L BUN 49 H Creatinine 5.8 H Glucose 150 H POC Glucose 118 H Lactic Acid Calcium 6.6 L Ionized Calcium Phosphorus Magnesium 1.10 L Iron TIBC Ferritin Total Bilirubin Direct Bilirubin AST ALT Alkaline Phosphatase Total Creatine Kinase 22897 H CK-MB (CK-2) Troponin T C-Reactive Protein Serum Total Protein Total Protein Albumin Wqtkm-3-Ntpnzjtsa Bivvr-7-Fbzzeeahd PEP Interpretation Triglycerides LDL Cholesterol Direct HDL Cholesterol Free T4 PTH Intact Urine WBC (Auto) Urine Creatinine Salicylates Acetaminophen Crossmatch 03/16/19 03/16/19 03/16/19 16:59 17:05 17:05 WBC RBC Hgb Hct MCV MCH MCHC RDW Plt Count Lymph % (Auto) [place] % (Auto) Eos % (Auto) Lymph # [place] # Eos # Seg Neutrophils % Seg Neuts % (Manual) Lymphocytes % (Manual) Monocytes % (Manual) Eosinophils % (Manual) Nucleated RBC % Seg Neutrophils # Seg Neutrophils # Man Lymphocytes # (Manual) Monocytes # (Manual) Eosinophils # (Manual) PT INR D-Dimer Heparin Anti-Xa Level POC ABG pH 7.297 L ABG pH POC ABG pCO2 33.0 L POC ABG pO2 ABG pO2 ABG HCO3 ABG O2 Saturation ABG Base Excess ABG Hemoglobin Oxyhemoglobin Sodium Potassium Chloride Carbon Dioxide BUN Creatinine Glucose POC Glucose Lactic Acid Calcium Ionized Calcium Phosphorus Magnesium Iron TIBC Ferritin Total Bilirubin Direct Bilirubin AST ALT Alkaline Phosphatase Total Creatine Kinase 28180 H CK-MB (CK-2) 83.1 H Troponin T C-Reactive Protein Serum Total Protein Total Protein Albumin Ogwod-1-Uqplvpily Zqnyu-6-Rbsanuaqn PEP Interpretation Triglycerides LDL Cholesterol Direct HDL Cholesterol Free T4 0.72 L PTH Intact Urine WBC (Auto) Urine Creatinine Salicylates Acetaminophen Crossmatch 03/16/19 03/16/19 03/16/19 17:05 17:05 17:05 WBC RBC Hgb Hct MCV MCH MCHC RDW Plt Count Lymph % (Auto) [place] % (Auto) Eos % (Auto) Lymph # [place] # Eos # Seg Neutrophils % Seg Neuts % (Manual) Lymphocytes % (Manual) Monocytes % (Manual) Eosinophils % (Manual) Nucleated RBC % Seg Neutrophils # Seg Neutrophils # Man Lymphocytes # (Manual) Monocytes # (Manual) Eosinophils # (Manual) PT INR D-Dimer Heparin Anti-Xa Level POC ABG pH ABG pH POC ABG pCO2 POC ABG pO2 ABG pO2 ABG HCO3 ABG O2 Saturation ABG Base Excess ABG Hemoglobin Oxyhemoglobin Sodium Potassium Chloride Carbon Dioxide BUN Creatinine Glucose POC Glucose Lactic Acid 5.10 H* Calcium Ionized Calcium Phosphorus Magnesium Iron TIBC Ferritin Total Bilirubin Direct Bilirubin AST ALT Alkaline Phosphatase Total Creatine Kinase CK-MB (CK-2) Troponin T C-Reactive Protein Serum Total Protein Total Protein Albumin Lgxwx-3-Nhdafekja Vbrpp-3-Inyahuwoa PEP Interpretation Triglycerides LDL Cholesterol Direct HDL Cholesterol Free T4 PTH Intact Urine WBC (Auto) Urine Creatinine Salicylates < 0.3 L Acetaminophen < 5.0 L Crossmatch 03/16/19 03/16/19 03/16/19 17:05 17:05 20:35 WBC RBC Hgb Hct MCV MCH MCHC RDW Plt Count Lymph % (Auto) [place] % (Auto) Eos % (Auto) Lymph # [place] # Eos # Seg Neutrophils % Seg Neuts % (Manual) Lymphocytes % (Manual) Monocytes % (Manual) Eosinophils % (Manual) Nucleated RBC % Seg Neutrophils # Seg Neutrophils # Man Lymphocytes # (Manual) Monocytes # (Manual) Eosinophils # (Manual) PT 15.9 H INR 1.30 H D-Dimer Heparin Anti-Xa Level POC ABG pH ABG pH POC ABG pCO2 POC ABG pO2 ABG pO2 ABG HCO3 ABG O2 Saturation ABG Base Excess ABG Hemoglobin Oxyhemoglobin Sodium Potassium Chloride Carbon Dioxide BUN Creatinine Glucose POC Glucose Lactic Acid 3.30 H* Calcium Ionized Calcium Phosphorus Magnesium Iron TIBC Ferritin Total Bilirubin 6.20 H Direct Bilirubin 5.9 H AST 800 H ALT 120 H Alkaline Phosphatase Total Creatine Kinase CK-MB (CK-2) Troponin T C-Reactive Protein Serum Total Protein Total Protein 4.4 L Albumin 2.4 L Bpldv-1-Hkiefplym Kdoia-8-Vtljgttzh PEP Interpretation Triglycerides LDL Cholesterol Direct HDL Cholesterol Free T4 PTH Intact Urine WBC (Auto) Urine Creatinine Salicylates Acetaminophen Crossmatch 03/16/19 03/16/19 03/16/19 21:45 22:32 Unknown WBC RBC Hgb Hct MCV MCH MCHC RDW Plt Count Lymph % (Auto) [place] % (Auto) Eos % (Auto) Lymph # [place] # Eos # Seg Neutrophils % Seg Neuts % (Manual) Lymphocytes % (Manual) Monocytes % (Manual) Eosinophils % (Manual) Nucleated RBC % Seg Neutrophils # Seg Neutrophils # Man Lymphocytes # (Manual) Monocytes # (Manual) Eosinophils # (Manual) PT INR D-Dimer Heparin Anti-Xa Level POC ABG pH ABG pH POC ABG pCO2 POC ABG pO2 ABG pO2 ABG HCO3 ABG O2 Saturation ABG Base Excess ABG Hemoglobin Oxyhemoglobin Sodium Potassium Chloride Carbon Dioxide BUN Creatinine Glucose POC Glucose Lactic Acid 3.30 H* 3.00 H* Calcium Ionized Calcium Phosphorus Magnesium Iron TIBC Ferritin Total Bilirubin Direct Bilirubin AST ALT Alkaline Phosphatase Total Creatine Kinase CK-MB (CK-2) Troponin T 0.047 H D C-Reactive Protein Serum Total Protein Total Protein Albumin Nildg-0-Utoykfqvq Ldjjh-7-Vftkhxwjy PEP Interpretation Triglycerides 395 H LDL Cholesterol Direct 10 L HDL Cholesterol 7 L Free T4 PTH Intact Urine WBC (Auto) Urine Creatinine Salicylates Acetaminophen Crossmatch 03/17/19 03/17/19 03/17/19 03:45 03:45 03:45 WBC RBC Hgb Hct MCV MCH MCHC RDW Plt Count Lymph % (Auto) [place] % (Auto) Eos % (Auto) Lymph # [place] # Eos # Seg Neutrophils % Seg Neuts % (Manual) Lymphocytes % (Manual) Monocytes % (Manual) Eosinophils % (Manual) Nucleated RBC % Seg Neutrophils # Seg Neutrophils # Man Lymphocytes # (Manual) Monocytes # (Manual) Eosinophils # (Manual) PT INR D-Dimer Heparin Anti-Xa Level POC ABG pH ABG pH POC ABG pCO2 POC ABG pO2 ABG pO2 ABG HCO3 ABG O2 Saturation ABG Base Excess ABG Hemoglobin Oxyhemoglobin Sodium 131 L Potassium Chloride 88.9 L Carbon Dioxide BUN 53 H Creatinine 7.1 H Glucose POC Glucose Lactic Acid 4.10 H* Calcium 5.4 L* D Ionized Calcium Phosphorus 7.30 H Magnesium 1.60 L Iron TIBC Ferritin Total Bilirubin 5.90 H Direct Bilirubin AST 801 H ALT 109 H Alkaline Phosphatase Total Creatine Kinase 23015 H 35688 H CK-MB (CK-2) 41.5 H Troponin T 0.054 H C-Reactive Protein Serum Total Protein Total Protein 4.5 L Albumin 2.0 L Ibhoh-8-Xydojtgio Mnvtg-8-Hozlcwgul PEP Interpretation Triglycerides LDL Cholesterol Direct HDL Cholesterol Free T4 PTH Intact Urine WBC (Auto) Urine Creatinine Salicylates Acetaminophen Crossmatch 03/17/19 03/17/19 03/17/19 05:47 07:16 07:16 WBC RBC Hgb Hct MCV MCH MCHC RDW Plt Count Lymph % (Auto) [place] % (Auto) Eos % (Auto) Lymph # [place] # Eos # Seg Neutrophils % Seg Neuts % (Manual) Lymphocytes % (Manual) Monocytes % (Manual) Eosinophils % (Manual) Nucleated RBC % Seg Neutrophils # Seg Neutrophils # Man Lymphocytes # (Manual) Monocytes # (Manual) Eosinophils # (Manual) PT INR D-Dimer Heparin Anti-Xa Level POC ABG pH 7.193 L ABG pH POC ABG pCO2 45.2 H POC ABG pO2 65 L ABG pO2 ABG HCO3 ABG O2 Saturation ABG Base Excess ABG Hemoglobin Oxyhemoglobin Sodium Potassium Chloride Carbon Dioxide BUN Creatinine Glucose POC Glucose Lactic Acid 5.50 H* Calcium Ionized Calcium Phosphorus Magnesium Iron TIBC Ferritin Total Bilirubin Direct Bilirubin AST ALT Alkaline Phosphatase Total Creatine Kinase 86925 H CK-MB (CK-2) 54.3 H Troponin T 0.058 H C-Reactive Protein Serum Total Protein Total Protein Albumin Qrwso-2-Bhqkimlxo Bcdry-7-Anpzovrjy PEP Interpretation Triglycerides LDL Cholesterol Direct HDL Cholesterol Free T4 PTH Intact Urine WBC (Auto) Urine Creatinine Salicylates Acetaminophen Crossmatch 03/17/19 03/17/19 03/17/19 11:52 12:51 13:01 WBC RBC Hgb Hct MCV MCH MCHC RDW Plt Count Lymph % (Auto) [place] % (Auto) Eos % (Auto) Lymph # [place] # Eos # Seg Neutrophils % Seg Neuts % (Manual) Lymphocytes % (Manual) Monocytes % (Manual) Eosinophils % (Manual) Nucleated RBC % Seg Neutrophils # Seg Neutrophils # Man Lymphocytes # (Manual) Monocytes # (Manual) Eosinophils # (Manual) PT INR D-Dimer Heparin Anti-Xa Level POC ABG pH 7.154 L ABG pH POC ABG pCO2 34.3 L POC ABG pO2 73 L ABG pO2 ABG HCO3 ABG O2 Saturation ABG Base Excess ABG Hemoglobin Oxyhemoglobin Sodium Potassium Chloride Carbon Dioxide BUN Creatinine Glucose POC Glucose 60 L Lactic Acid 8.20 H* Calcium Ionized Calcium Phosphorus Magnesium Iron TIBC Ferritin Total Bilirubin Direct Bilirubin AST ALT Alkaline Phosphatase Total Creatine Kinase CK-MB (CK-2) Troponin T C-Reactive Protein Serum Total Protein Total Protein Albumin Xdczi-8-Gkrhjnhdu Btdvq-4-Zoqugntrp PEP Interpretation Triglycerides LDL Cholesterol Direct HDL Cholesterol Free T4 PTH Intact Urine WBC (Auto) Urine Creatinine Salicylates Acetaminophen Crossmatch 03/17/19 03/17/19 03/17/19 14:37 14:37 14:37 WBC 29.3 H RBC Hgb Hct MCV MCH MCHC RDW 15.8 H Plt Count 45 L Lymph % (Auto) [place] % (Auto) Eos % (Auto) Lymph # [place] # Eos # Seg Neutrophils % Seg Neuts % (Manual) 81.0 H Lymphocytes % (Manual) 1.0 L Monocytes % (Manual) 15.0 H Eosinophils % (Manual) Nucleated RBC % Seg Neutrophils # Seg Neutrophils # Man 23.7 H Lymphocytes # (Manual) 0.3 L Monocytes # (Manual) 4.4 H Eosinophils # (Manual) PT INR D-Dimer Heparin Anti-Xa Level POC ABG pH ABG pH POC ABG pCO2 POC ABG pO2 ABG pO2 ABG HCO3 ABG O2 Saturation ABG Base Excess ABG Hemoglobin Oxyhemoglobin Sodium Potassium Chloride Carbon Dioxide BUN Creatinine Glucose POC Glucose Lactic Acid 4.90 H* Calcium Ionized Calcium Phosphorus Magnesium Iron TIBC Ferritin Total Bilirubin Direct Bilirubin AST ALT Alkaline Phosphatase Total Creatine Kinase CK-MB (CK-2) Troponin T C-Reactive Protein 24.90 H Serum Total Protein Total Protein Albumin Cfdtq-1-Ewriimzny Hhfgk-8-Rubgbsvqq PEP Interpretation Triglycerides LDL Cholesterol Direct HDL Cholesterol Free T4 PTH Intact Urine WBC (Auto) Urine Creatinine Salicylates Acetaminophen Crossmatch 03/17/19 03/17/19 03/17/19 16:05 16:05 17:02 WBC RBC Hgb Hct MCV MCH MCHC RDW Plt Count Lymph % (Auto) [place] % (Auto) Eos % (Auto) Lymph # [place] # Eos # Seg Neutrophils % Seg Neuts % (Manual) Lymphocytes % (Manual) Monocytes % (Manual) Eosinophils % (Manual) Nucleated RBC % Seg Neutrophils # Seg Neutrophils # Man Lymphocytes # (Manual) Monocytes # (Manual) Eosinophils # (Manual) PT INR D-Dimer Heparin Anti-Xa Level POC ABG pH 7.183 L ABG pH POC ABG pCO2 POC ABG pO2 65 L ABG pO2 ABG HCO3 ABG O2 Saturation ABG Base Excess ABG Hemoglobin Oxyhemoglobin Sodium Potassium Chloride Carbon Dioxide BUN Creatinine Glucose POC Glucose Lactic Acid Calcium Ionized Calcium Phosphorus Magnesium Iron TIBC Ferritin Total Bilirubin Direct Bilirubin AST ALT Alkaline Phosphatase Total Creatine Kinase CK-MB (CK-2) Troponin T C-Reactive Protein Serum Total Protein Total Protein Albumin Knfiy-8-Rctibzymo Pxqww-7-Txbbsqzgi PEP Interpretation Triglycerides LDL Cholesterol Direct HDL Cholesterol Free T4 PTH Intact Urine WBC (Auto) 30.0 H Urine Creatinine 106.6 H Salicylates Acetaminophen Crossmatch 03/18/19 03/18/19 03/18/19 05:12 05:16 05:53 WBC RBC Hgb Hct MCV MCH MCHC RDW Plt Count Lymph % (Auto) [place] % (Auto) Eos % (Auto) Lymph # [place] # Eos # Seg Neutrophils % Seg Neuts % (Manual) Lymphocytes % (Manual) Monocytes % (Manual) Eosinophils % (Manual) Nucleated RBC % Seg Neutrophils # Seg Neutrophils # Man Lymphocytes # (Manual) Monocytes # (Manual) Eosinophils # (Manual) PT INR D-Dimer Heparin Anti-Xa Level POC ABG pH 7.257 L ABG pH POC ABG pCO2 31.6 L POC ABG pO2 69 L ABG pO2 ABG HCO3 ABG O2 Saturation ABG Base Excess ABG Hemoglobin Oxyhemoglobin Sodium Potassium Chloride Carbon Dioxide BUN Creatinine Glucose POC Glucose 141 H Lactic Acid 5.00 H* Calcium Ionized Calcium Phosphorus Magnesium Iron TIBC Ferritin Total Bilirubin Direct Bilirubin AST ALT Alkaline Phosphatase Total Creatine Kinase CK-MB (CK-2) Troponin T C-Reactive Protein Serum Total Protein Total Protein Albumin Dgzzl-1-Iermkiphy Wazbz-7-Lmejrpgfi PEP Interpretation Triglycerides LDL Cholesterol Direct HDL Cholesterol Free T4 PTH Intact Urine WBC (Auto) Urine Creatinine Salicylates Acetaminophen Crossmatch 03/18/19 03/18/19 03/18/19 06:57 08:40 08:40 WBC 31.7 H RBC Hgb Hct MCV MCH MCHC RDW 15.5 H Plt Count 35 L Lymph % (Auto) [place] % (Auto) Eos % (Auto) Lymph # [place] # Eos # Seg Neutrophils % Seg Neuts % (Manual) Lymphocytes % (Manual) Monocytes % (Manual) Eosinophils % (Manual) Nucleated RBC % Seg Neutrophils # Seg Neutrophils # Man Lymphocytes # (Manual) Monocytes # (Manual) Eosinophils # (Manual) PT INR D-Dimer Heparin Anti-Xa Level POC ABG pH ABG pH POC ABG pCO2 POC ABG pO2 ABG pO2 ABG HCO3 ABG O2 Saturation ABG Base Excess ABG Hemoglobin Oxyhemoglobin Sodium 132 L Potassium 5.5 H D Chloride 88.5 L Carbon Dioxide 18 L BUN 71 H Creatinine 8.1 H Glucose 205 H POC Glucose Lactic Acid 5.00 H* Calcium 4.1 L* D Ionized Calcium Phosphorus Magnesium 2.40 H Iron TIBC Ferritin Total Bilirubin 7.50 H Direct Bilirubin AST 1088 H ALT 159 H Alkaline Phosphatase 190 H Total Creatine Kinase 544809 H CK-MB (CK-2) Troponin T C-Reactive Protein Serum Total Protein Total Protein 4.7 L Albumin 1.8 L Sahym-2-Mogcdtosl Cohti-5-Ooqklyyvb PEP Interpretation Triglycerides LDL Cholesterol Direct HDL Cholesterol Free T4 PTH Intact Urine WBC (Auto) Urine Creatinine Salicylates Acetaminophen Crossmatch 03/18/19 03/18/19 03/18/19 12:33 12:50 13:19 WBC RBC Hgb Hct MCV MCH MCHC RDW Plt Count Lymph % (Auto) [place] % (Auto) Eos % (Auto) Lymph # [place] # Eos # Seg Neutrophils % Seg Neuts % (Manual) Lymphocytes % (Manual) Monocytes % (Manual) Eosinophils % (Manual) Nucleated RBC % Seg Neutrophils # Seg Neutrophils # Man Lymphocytes # (Manual) Monocytes # (Manual) Eosinophils # (Manual) PT INR D-Dimer Heparin Anti-Xa Level POC ABG pH 7.282 L ABG pH POC ABG pCO2 POC ABG pO2 67 L ABG pO2 ABG HCO3 ABG O2 Saturation ABG Base Excess ABG Hemoglobin Oxyhemoglobin Sodium Potassium Chloride Carbon Dioxide BUN Creatinine Glucose POC Glucose 129 H Lactic Acid 3.30 H* Calcium Ionized Calcium Phosphorus Magnesium Iron TIBC Ferritin Total Bilirubin Direct Bilirubin AST ALT Alkaline Phosphatase Total Creatine Kinase CK-MB (CK-2) Troponin T C-Reactive Protein Serum Total Protein Total Protein Albumin Ftbwv-2-Tedzzeewj Klrja-8-Nrhneqbnd PEP Interpretation Triglycerides LDL Cholesterol Direct HDL Cholesterol Free T4 PTH Intact Urine WBC (Auto) Urine Creatinine Salicylates Acetaminophen Crossmatch 03/18/19 03/18/19 03/18/19 13:19 16:50 18:11 WBC RBC Hgb Hct MCV MCH MCHC RDW Plt Count Lymph % (Auto) [place] % (Auto) Eos % (Auto) Lymph # [place] # Eos # Seg Neutrophils % Seg Neuts % (Manual) Lymphocytes % (Manual) Monocytes % (Manual) Eosinophils % (Manual) Nucleated RBC % Seg Neutrophils # Seg Neutrophils # Man Lymphocytes # (Manual) Monocytes # (Manual) Eosinophils # (Manual) PT INR D-Dimer Heparin Anti-Xa Level POC ABG pH ABG pH POC ABG pCO2 POC ABG pO2 59 L ABG pO2 ABG HCO3 ABG O2 Saturation ABG Base Excess ABG Hemoglobin Oxyhemoglobin Sodium Potassium Chloride Carbon Dioxide BUN Creatinine Glucose POC Glucose 151 H Lactic Acid Calcium 4.2 L* Ionized Calcium Phosphorus Magnesium Iron TIBC Ferritin Total Bilirubin Direct Bilirubin AST ALT Alkaline Phosphatase Total Creatine Kinase 033049 H CK-MB (CK-2) Troponin T C-Reactive Protein Serum Total Protein Total Protein Albumin [place]-9-Xehpxhcaz Kwcbf-8-Znbfbupty PEP Interpretation Triglycerides LDL Cholesterol Direct HDL Cholesterol Free T4 PTH Intact Urine WBC (Auto) Urine Creatinine Salicylates Acetaminophen Crossmatch 03/18/19 03/18/19 03/19/19 18:20 23:39 01:42 WBC RBC Hgb Hct MCV MCH MCHC RDW Plt Count Lymph % (Auto) [place] % (Auto) Eos % (Auto) Lymph # [place] # Eos # Seg Neutrophils % Seg Neuts % (Manual) Lymphocytes % (Manual) Monocytes % (Manual) Eosinophils % (Manual) Nucleated RBC % Seg Neutrophils # Seg Neutrophils # Man Lymphocytes # (Manual) Monocytes # (Manual) Eosinophils # (Manual) PT INR D-Dimer Heparin Anti-Xa Level POC ABG pH 7.345 L ABG pH 7.285 L POC ABG pCO2 POC ABG pO2 59 L ABG pO2 44.0 L ABG HCO3 ABG O2 Saturation 70.9 L ABG Base Excess -5.7 L ABG Hemoglobin 11.9 L Oxyhemoglobin 69.6 L Sodium Potassium Chloride Carbon Dioxide BUN Creatinine Glucose POC Glucose 152 H Lactic Acid Calcium Ionized Calcium Phosphorus Magnesium Iron TIBC Ferritin Total Bilirubin Direct Bilirubin AST ALT Alkaline Phosphatase Total Creatine Kinase CK-MB (CK-2) Troponin T C-Reactive Protein Serum Total Protein Total Protein Albumin Fxcir-5-Bnmvadukm Ekhzg-3-Ltuulqbkz PEP Interpretation Triglycerides LDL Cholesterol Direct HDL Cholesterol Free T4 PTH Intact Urine WBC (Auto) Urine Creatinine Salicylates Acetaminophen Crossmatch 03/19/19 03/19/19 03/19/19 04:00 04:00 05:35 WBC 36.5 H RBC Hgb Hct MCV MCH MCHC RDW 15.8 H Plt Count 35 L Lymph % (Auto) [place] % (Auto) Eos % (Auto) Lymph # [place] # Eos # Seg Neutrophils % Seg Neuts % (Manual) Lymphocytes % (Manual) Monocytes % (Manual) Eosinophils % (Manual) Nucleated RBC % Seg Neutrophils # Seg Neutrophils # Man Lymphocytes # (Manual) Monocytes # (Manual) Eosinophils # (Manual) PT INR D-Dimer Heparin Anti-Xa Level POC ABG pH ABG pH 7.265 L POC ABG pCO2 POC ABG pO2 ABG pO2 35.4 L* ABG HCO3 ABG O2 Saturation 54.4 L ABG Base Excess -6.7 L ABG Hemoglobin 12.9 L Oxyhemoglobin 53.4 L Sodium 132 L Potassium 5.7 H Chloride 89.8 L Carbon Dioxide 19 L BUN 62 H Creatinine 6.4 H Glucose 151 H POC Glucose Lactic Acid Calcium 5.2 L* D Ionized Calcium Phosphorus Magnesium Iron TIBC Ferritin Total Bilirubin 7.80 H Direct Bilirubin AST 682 H ALT 130 H Alkaline Phosphatase 167 H Total Creatine Kinase CK-MB (CK-2) Troponin T C-Reactive Protein Serum Total Protein Total Protein 4.8 L Albumin 2.3 L Yurcn-6-Cfldzypbo Gtyua-3-Wosiimqhi PEP Interpretation Triglycerides LDL Cholesterol Direct HDL Cholesterol Free T4 PTH Intact Urine WBC (Auto) Urine Creatinine Salicylates Acetaminophen Crossmatch 03/19/19 03/19/19 03/19/19 05:49 09:16 09:50 WBC RBC Hgb Hct MCV MCH MCHC RDW Plt Count Lymph % (Auto) [place] % (Auto) Eos % (Auto) Lymph # [place] # Eos # Seg Neutrophils % Seg Neuts % (Manual) Lymphocytes % (Manual) Monocytes % (Manual) Eosinophils % (Manual) Nucleated RBC % Seg Neutrophils # Seg Neutrophils # Man Lymphocytes # (Manual) Monocytes # (Manual) Eosinophils # (Manual) PT INR D-Dimer Heparin Anti-Xa Level POC ABG pH 7.222 L ABG pH POC ABG pCO2 56.6 H POC ABG pO2 ABG pO2 ABG HCO3 ABG O2 Saturation ABG Base Excess ABG Hemoglobin Oxyhemoglobin Sodium Potassium Chloride Carbon Dioxide BUN Creatinine Glucose POC Glucose 154 H Lactic Acid 2.70 H* Calcium Ionized Calcium Phosphorus Magnesium Iron TIBC Ferritin Total Bilirubin Direct Bilirubin AST ALT Alkaline Phosphatase Total Creatine Kinase CK-MB (CK-2) Troponin T C-Reactive Protein Serum Total Protein Total Protein Albumin Prjib-6-Hzmnwbtvn Mxbga-7-Lqebsyhak PEP Interpretation Triglycerides LDL Cholesterol Direct HDL Cholesterol Free T4 PTH Intact Urine WBC (Auto) Urine Creatinine Salicylates Acetaminophen Crossmatch 03/19/19 03/19/19 03/19/19 09:50 11:28 17:58 WBC RBC Hgb Hct MCV MCH MCHC RDW Plt Count Lymph % (Auto) [place] % (Auto) Eos % (Auto) Lymph # [place] # Eos # Seg Neutrophils % Seg Neuts % (Manual) Lymphocytes % (Manual) Monocytes % (Manual) Eosinophils % (Manual) Nucleated RBC % Seg Neutrophils # Seg Neutrophils # Man Lymphocytes # (Manual) Monocytes # (Manual) Eosinophils # (Manual) PT INR D-Dimer Heparin Anti-Xa Level POC ABG pH 7.250 L ABG pH POC ABG pCO2 52.6 H POC ABG pO2 ABG pO2 ABG HCO3 ABG O2 Saturation ABG Base Excess ABG Hemoglobin Oxyhemoglobin Sodium Potassium Chloride Carbon Dioxide BUN Creatinine Glucose POC Glucose 160 H Lactic Acid Calcium Ionized Calcium Phosphorus Magnesium Iron TIBC Ferritin Total Bilirubin Direct Bilirubin AST ALT Alkaline Phosphatase Total Creatine Kinase 54163 H CK-MB (CK-2) Troponin T C-Reactive Protein Serum Total Protein Total Protein Albumin Bisgl-2-Dtvwotybd Gxdtp-1-Cbnytmein PEP Interpretation Triglycerides LDL Cholesterol Direct HDL Cholesterol Free T4 PTH Intact Urine WBC (Auto) Urine Creatinine Salicylates Acetaminophen Crossmatch 03/19/19 03/19/19 03/20/19 19:48 21:03 02:16 WBC RBC Hgb Hct MCV MCH MCHC RDW Plt Count Lymph % (Auto) [place] % (Auto) Eos % (Auto) Lymph # [place] # Eos # Seg Neutrophils % Seg Neuts % (Manual) Lymphocytes % (Manual) Monocytes % (Manual) Eosinophils % (Manual) Nucleated RBC % Seg Neutrophils # Seg Neutrophils # Man Lymphocytes # (Manual) Monocytes # (Manual) Eosinophils # (Manual) PT INR D-Dimer Heparin Anti-Xa Level POC ABG pH 7.279 L ABG pH POC ABG pCO2 50.3 H POC ABG pO2 129 H ABG pO2 ABG HCO3 ABG O2 Saturation ABG Base Excess ABG Hemoglobin Oxyhemoglobin Sodium Potassium Chloride Carbon Dioxide BUN Creatinine Glucose POC Glucose 119 H 119 H Lactic Acid Calcium Ionized Calcium Phosphorus Magnesium Iron TIBC Ferritin Total Bilirubin Direct Bilirubin AST ALT Alkaline Phosphatase Total Creatine Kinase CK-MB (CK-2) Troponin T C-Reactive Protein Serum Total Protein Total Protein Albumin Guyan-4-Ogrkahaot Lavnq-9-Bjtgsqyoq PEP Interpretation Triglycerides LDL Cholesterol Direct HDL Cholesterol Free T4 PTH Intact Urine WBC (Auto) Urine Creatinine Salicylates Acetaminophen Crossmatch 03/20/19 03/20/19 03/20/19 04:23 05:05 09:30 WBC 36.3 H RBC Hgb Hct MCV MCH MCHC RDW 15.5 H Plt Count 29 L Lymph % (Auto) [place] % (Auto) Eos % (Auto) Lymph # [place] # Eos # Seg Neutrophils % Seg Neuts % (Manual) Lymphocytes % (Manual) Monocytes % (Manual) Eosinophils % (Manual) Nucleated RBC % Seg Neutrophils # Seg Neutrophils # Man Lymphocytes # (Manual) Monocytes # (Manual) Eosinophils # (Manual) PT INR D-Dimer Heparin Anti-Xa Level POC ABG pH ABG pH POC ABG pCO2 POC ABG pO2 280 H ABG pO2 ABG HCO3 ABG O2 Saturation ABG Base Excess ABG Hemoglobin Oxyhemoglobin Sodium Potassium Chloride Carbon Dioxide BUN Creatinine Glucose POC Glucose 115 H Lactic Acid Calcium Ionized Calcium Phosphorus Magnesium Iron TIBC Ferritin Total Bilirubin Direct Bilirubin AST ALT Alkaline Phosphatase Total Creatine Kinase CK-MB (CK-2) Troponin T C-Reactive Protein Serum Total Protein Total Protein Albumin Wqhvn-1-Ioagswzlg Rxsid-1-Coactomko PEP Interpretation Triglycerides LDL Cholesterol Direct HDL Cholesterol Free T4 PTH Intact Urine WBC (Auto) Urine Creatinine Salicylates Acetaminophen Crossmatch 03/20/19 03/20/19 03/20/19 09:30 09:30 11:34 WBC RBC Hgb Hct MCV MCH MCHC RDW Plt Count Lymph % (Auto) [place] % (Auto) Eos % (Auto) Lymph # [place] # Eos # Seg Neutrophils % Seg Neuts % (Manual) Lymphocytes % (Manual) Monocytes % (Manual) Eosinophils % (Manual) Nucleated RBC % Seg Neutrophils # Seg Neutrophils # Man Lymphocytes # (Manual) Monocytes # (Manual) Eosinophils # (Manual) PT INR D-Dimer Heparin Anti-Xa Level POC ABG pH ABG pH POC ABG pCO2 POC ABG pO2 ABG pO2 ABG HCO3 ABG O2 Saturation ABG Base Excess ABG Hemoglobin Oxyhemoglobin Sodium 131 L Potassium Chloride 92.3 L Carbon Dioxide 20 L BUN 68 H Creatinine 6.1 H Glucose 164 H POC Glucose 141 H Lactic Acid Calcium 5.3 L* Ionized Calcium Phosphorus Magnesium Iron TIBC Ferritin Total Bilirubin 9.50 H Direct Bilirubin AST 381 H ALT 116 H Alkaline Phosphatase 255 H Total Creatine Kinase 28166 H CK-MB (CK-2) Troponin T C-Reactive Protein Serum Total Protein Total Protein 5.1 L Albumin 2.3 L Aqnoq-8-Uuvrfgpvl Unppu-6-Sjffwpcqk PEP Interpretation Triglycerides LDL Cholesterol Direct HDL Cholesterol Free T4 PTH Intact Urine WBC (Auto) Urine Creatinine Salicylates Acetaminophen Crossmatch 03/20/19 03/20/19 03/20/19 14:41 14:45 18:50 WBC RBC Hgb Hct MCV MCH MCHC RDW Plt Count Lymph % (Auto) [place] % (Auto) Eos % (Auto) Lymph # [place] # Eos # Seg Neutrophils % Seg Neuts % (Manual) Lymphocytes % (Manual) Monocytes % (Manual) Eosinophils % (Manual) Nucleated RBC % Seg Neutrophils # Seg Neutrophils # Man Lymphocytes # (Manual) Monocytes # (Manual) Eosinophils # (Manual) PT INR D-Dimer Heparin Anti-Xa Level POC ABG pH ABG pH POC ABG pCO2 POC ABG pO2 ABG pO2 ABG HCO3 ABG O2 Saturation ABG Base Excess ABG Hemoglobin Oxyhemoglobin Sodium Potassium Chloride Carbon Dioxide BUN Creatinine Glucose POC Glucose 117 H Lactic Acid 2.90 H* Calcium Ionized Calcium Phosphorus Magnesium Iron TIBC Ferritin Total Bilirubin Direct Bilirubin AST ALT Alkaline Phosphatase Total Creatine Kinase CK-MB (CK-2) Troponin T C-Reactive Protein 13.30 H Serum Total Protein Total Protein Albumin Hnqfo-6-Cuqhnkeeq Iyxdl-3-Qfrdkfobm PEP Interpretation Triglycerides LDL Cholesterol Direct HDL Cholesterol Free T4 PTH Intact Urine WBC (Auto) Urine Creatinine Salicylates Acetaminophen Crossmatch 03/20/19 03/21/19 03/21/19 21:55 04:26 04:26 WBC 37.8 H RBC Hgb Hct MCV MCH MCHC RDW 15.4 H Plt Count 36 L Lymph % (Auto) [place] % (Auto) Eos % (Auto) Lymph # [place] # Eos # Seg Neutrophils % Seg Neuts % (Manual) 93.0 H Lymphocytes % (Manual) 3.0 L Monocytes % (Manual) Eosinophils % (Manual) Nucleated RBC % 1.0 H Seg Neutrophils # 34.6 H Seg Neutrophils # Man 35.2 H Lymphocytes # (Manual) 1.1 L Monocytes # (Manual) Eosinophils # (Manual) PT INR D-Dimer Heparin Anti-Xa Level POC ABG pH ABG pH POC ABG pCO2 POC ABG pO2 ABG pO2 ABG HCO3 ABG O2 Saturation ABG Base Excess ABG Hemoglobin Oxyhemoglobin Sodium 131 L Potassium Chloride 90.7 L Carbon Dioxide 21 L BUN 69 H Creatinine 5.7 H Glucose 170 H POC Glucose 128 H Lactic Acid Calcium 6.1 L D Ionized Calcium Phosphorus Magnesium Iron TIBC Ferritin Total Bilirubin 9.50 H Direct Bilirubin AST 308 H ALT 124 H Alkaline Phosphatase 327 H Total Creatine Kinase 80568 H CK-MB (CK-2) Troponin T C-Reactive Protein Serum Total Protein Total Protein 5.7 L Albumin 2.6 L [place]-0-Kcqsyasqd Apuvr-1-Pqkcpnfdl PEP Interpretation Triglycerides LDL Cholesterol Direct HDL Cholesterol Free T4 PTH Intact Urine WBC (Auto) Urine Creatinine Salicylates Acetaminophen Crossmatch 03/21/19 03/21/19 03/21/19 05:17 05:39 08:29 WBC RBC Hgb Hct MCV MCH MCHC RDW Plt Count Lymph % (Auto) [place] % (Auto) Eos % (Auto) Lymph # [place] # Eos # Seg Neutrophils % Seg Neuts % (Manual) Lymphocytes % (Manual) Monocytes % (Manual) Eosinophils % (Manual) Nucleated RBC % Seg Neutrophils # Seg Neutrophils # Man Lymphocytes # (Manual) Monocytes # (Manual) Eosinophils # (Manual) PT INR D-Dimer Heparin Anti-Xa Level POC ABG pH ABG pH POC ABG pCO2 POC ABG pO2 209 H ABG pO2 ABG HCO3 ABG O2 Saturation ABG Base Excess ABG Hemoglobin Oxyhemoglobin Sodium Potassium Chloride Carbon Dioxide BUN Creatinine Glucose POC Glucose 145 H Lactic Acid Calcium Ionized Calcium Phosphorus Magnesium Iron TIBC Ferritin Total Bilirubin Direct Bilirubin AST ALT Alkaline Phosphatase Total Creatine Kinase 80818 H CK-MB (CK-2) Troponin T C-Reactive Protein Serum Total Protein Total Protein Albumin Sehuc-2-Gsriiweif Bjpxr-6-Cbnaoxtwe PEP Interpretation Triglycerides LDL Cholesterol Direct HDL Cholesterol Free T4 PTH Intact Urine WBC (Auto) Urine Creatinine Salicylates Acetaminophen Crossmatch 03/21/19 03/21/19 03/21/19 08:29 11:43 12:00 WBC RBC Hgb Hct MCV MCH MCHC RDW Plt Count Lymph % (Auto) [place] % (Auto) Eos % (Auto) Lymph # [place] # Eos # Seg Neutrophils % Seg Neuts % (Manual) Lymphocytes % (Manual) Monocytes % (Manual) Eosinophils % (Manual) Nucleated RBC % Seg Neutrophils # Seg Neutrophils # Man Lymphocytes # (Manual) Monocytes # (Manual) Eosinophils # (Manual) PT INR D-Dimer Heparin Anti-Xa Level POC ABG pH ABG pH POC ABG pCO2 POC ABG pO2 ABG pO2 ABG HCO3 ABG O2 Saturation ABG Base Excess ABG Hemoglobin Oxyhemoglobin Sodium Potassium Chloride Carbon Dioxide BUN Creatinine Glucose POC Glucose 123 H Lactic Acid 2.60 H* 2.20 H* Calcium Ionized Calcium Phosphorus Magnesium Iron TIBC Ferritin Total Bilirubin Direct Bilirubin AST ALT Alkaline Phosphatase Total Creatine Kinase CK-MB (CK-2) Troponin T C-Reactive Protein Serum Total Protein Total Protein Albumin Dfbcx-7-Hqnssfurf Xzjtt-1-Vygubekuw PEP Interpretation Triglycerides LDL Cholesterol Direct HDL Cholesterol Free T4 PTH Intact Urine WBC (Auto) Urine Creatinine Salicylates Acetaminophen Crossmatch 03/21/19 03/21/19 03/21/19 14:11 18:28 19:32 WBC RBC Hgb Hct MCV MCH MCHC RDW Plt Count Lymph % (Auto) [place] % (Auto) Eos % (Auto) Lymph # [place] # Eos # Seg Neutrophils % Seg Neuts % (Manual) Lymphocytes % (Manual) Monocytes % (Manual) Eosinophils % (Manual) Nucleated RBC % Seg Neutrophils # Seg Neutrophils # Man Lymphocytes # (Manual) Monocytes # (Manual) Eosinophils # (Manual) PT INR D-Dimer Heparin Anti-Xa Level POC ABG pH 7.293 L ABG pH POC ABG pCO2 POC ABG pO2 ABG pO2 ABG HCO3 ABG O2 Saturation ABG Base Excess ABG Hemoglobin Oxyhemoglobin Sodium Potassium Chloride Carbon Dioxide BUN Creatinine Glucose POC Glucose 153 H Lactic Acid 2.10 H* Calcium Ionized Calcium Phosphorus Magnesium Iron TIBC Ferritin Total Bilirubin Direct Bilirubin AST ALT Alkaline Phosphatase Total Creatine Kinase CK-MB (CK-2) Troponin T C-Reactive Protein Serum Total Protein Total Protein Albumin Qgavz-6-Wimfwwgva Uxemb-1-Nuylrlgxd PEP Interpretation Triglycerides LDL Cholesterol Direct HDL Cholesterol Free T4 PTH Intact Urine WBC (Auto) Urine Creatinine Salicylates Acetaminophen Crossmatch 03/21/19 03/22/19 03/22/19 23:38 05:08 05:51 WBC RBC Hgb Hct MCV MCH MCHC RDW Plt Count Lymph % (Auto) [place] % (Auto) Eos % (Auto) Lymph # [place] # Eos # Seg Neutrophils % Seg Neuts % (Manual) Lymphocytes % (Manual) Monocytes % (Manual) Eosinophils % (Manual) Nucleated RBC % Seg Neutrophils # Seg Neutrophils # Man Lymphocytes # (Manual) Monocytes # (Manual) Eosinophils # (Manual) PT INR D-Dimer Heparin Anti-Xa Level POC ABG pH 7.283 L ABG pH POC ABG pCO2 POC ABG pO2 53 L ABG pO2 ABG HCO3 ABG O2 Saturation ABG Base Excess ABG Hemoglobin Oxyhemoglobin Sodium Potassium Chloride Carbon Dioxide BUN Creatinine Glucose POC Glucose 149 H 131 H Lactic Acid Calcium Ionized Calcium Phosphorus Magnesium Iron TIBC Ferritin Total Bilirubin Direct Bilirubin AST ALT Alkaline Phosphatase Total Creatine Kinase CK-MB (CK-2) Troponin T C-Reactive Protein Serum Total Protein Total Protein Albumin Drrzp-0-Mmhbooytz Xzvpu-8-Hsnwsskjs PEP Interpretation Triglycerides LDL Cholesterol Direct HDL Cholesterol Free T4 PTH Intact Urine WBC (Auto) Urine Creatinine Salicylates Acetaminophen Crossmatch 03/22/19 03/22/19 03/22/19 08:00 08:00 18:19 WBC 36.7 H RBC Hgb 11.0 L Hct 33.5 L MCV MCH MCHC RDW 15.5 H Plt Count 43 L Lymph % (Auto) [place] % (Auto) Eos % (Auto) Lymph # [place] # Eos # Seg Neutrophils % Seg Neuts % (Manual) 87.0 H Lymphocytes % (Manual) 7.0 L Monocytes % (Manual) Eosinophils % (Manual) Nucleated RBC % Seg Neutrophils # Seg Neutrophils # Man 31.9 H Lymphocytes # (Manual) Monocytes # (Manual) Eosinophils # (Manual) PT INR D-Dimer Heparin Anti-Xa Level POC ABG pH ABG pH POC ABG pCO2 46.4 H POC ABG pO2 108 H ABG pO2 ABG HCO3 ABG O2 Saturation ABG Base Excess ABG Hemoglobin Oxyhemoglobin Sodium 132 L Potassium 5.6 H Chloride 89.6 L Carbon Dioxide 20 L BUN 101 H Creatinine 7.4 H Glucose 124 H POC Glucose Lactic Acid Calcium 5.2 L* Ionized Calcium Phosphorus Magnesium Iron TIBC Ferritin Total Bilirubin 2.80 H Direct Bilirubin AST 119 H ALT 86 H Alkaline Phosphatase 245 H Total Creatine Kinase CK-MB (CK-2) Troponin T C-Reactive Protein Serum Total Protein Total Protein 5.6 L Albumin 2.5 L [place]-4-Wqomsnvae Qemen-9-Cwovvqapv PEP Interpretation Triglycerides LDL Cholesterol Direct HDL Cholesterol Free T4 PTH Intact Urine WBC (Auto) Urine Creatinine Salicylates Acetaminophen Crossmatch 03/22/19 03/23/19 03/23/19 20:37 04:49 05:28 WBC 35.9 H RBC Hgb 10.8 L Hct 33.2 L MCV MCH MCHC RDW 15.5 H Plt Count 49 L Lymph % (Auto) [place] % (Auto) Eos % (Auto) Lymph # [place] # Eos # Seg Neutrophils % Seg Neuts % (Manual) 81.0 H Lymphocytes % (Manual) 3.5 L Monocytes % (Manual) Eosinophils % (Manual) Nucleated RBC % Seg Neutrophils # Seg Neutrophils # Man 29.1 H Lymphocytes # (Manual) Monocytes # (Manual) 1.4 H Eosinophils # (Manual) PT INR D-Dimer Heparin Anti-Xa Level POC ABG pH 7.296 L ABG pH POC ABG pCO2 46.2 H POC ABG pO2 ABG pO2 ABG HCO3 ABG O2 Saturation ABG Base Excess ABG Hemoglobin Oxyhemoglobin Sodium 129 L Potassium 5.2 H Chloride 91.1 L Carbon Dioxide BUN 91 H Creatinine 6.6 H Glucose 190 H POC Glucose Lactic Acid Calcium 5.3 L* Ionized Calcium Phosphorus Magnesium Iron TIBC Ferritin Total Bilirubin 1.80 H Direct Bilirubin AST 80 H ALT 62 H Alkaline Phosphatase 209 H Total Creatine Kinase 9758 H CK-MB (CK-2) Troponin T C-Reactive Protein Serum Total Protein Total Protein 5.2 L Albumin 2.2 L Lukmv-5-Caubphkak Esddx-6-Obrpiattw PEP Interpretation Triglycerides LDL Cholesterol Direct HDL Cholesterol Free T4 PTH Intact Urine WBC (Auto) Urine Creatinine Salicylates Acetaminophen Crossmatch 03/23/19 03/23/19 03/23/19 05:28 05:31 11:33 WBC 29.7 H RBC 3.59 L Hgb 10.1 L Hct 31.1 L MCV MCH MCHC RDW 15.4 H Plt Count 47 L Lymph % (Auto) [place] % (Auto) Eos % (Auto) Lymph # [place] # Eos # Seg Neutrophils % Seg Neuts % (Manual) 89.0 H Lymphocytes % (Manual) 6.0 L Monocytes % (Manual) Eosinophils % (Manual) Nucleated RBC % 1.0 H Seg Neutrophils # Seg Neutrophils # Man 26.4 H Lymphocytes # (Manual) Monocytes # (Manual) Eosinophils # (Manual) PT INR D-Dimer Heparin Anti-Xa Level POC ABG pH ABG pH POC ABG pCO2 POC ABG pO2 ABG pO2 ABG HCO3 ABG O2 Saturation ABG Base Excess ABG Hemoglobin Oxyhemoglobin Sodium Potassium Chloride Carbon Dioxide BUN Creatinine Glucose POC Glucose 122 H 113 H Lactic Acid Calcium Ionized Calcium Phosphorus Magnesium Iron TIBC Ferritin Total Bilirubin Direct Bilirubin AST ALT Alkaline Phosphatase Total Creatine Kinase CK-MB (CK-2) Troponin T C-Reactive Protein Serum Total Protein Total Protein Albumin Dznbq-1-Mdtrmhfte Shaph-2-Tfnezwvxs PEP Interpretation Triglycerides LDL Cholesterol Direct HDL Cholesterol Free T4 PTH Intact Urine WBC (Auto) Urine Creatinine Salicylates Acetaminophen Crossmatch 03/23/19 03/24/19 03/24/19 17:47 00:00 04:50 WBC 35.0 H RBC Hgb 10.4 L Hct 32.4 L MCV MCH MCHC RDW Plt Count 60 L Lymph % (Auto) [place] % (Auto) Eos % (Auto) Lymph # [place] # Eos # Seg Neutrophils % Seg Neuts % (Manual) 93.0 H Lymphocytes % (Manual) 5.0 L Monocytes % (Manual) Eosinophils % (Manual) Nucleated RBC % 7.0 H Seg Neutrophils # Seg Neutrophils # Man 32.6 H Lymphocytes # (Manual) Monocytes # (Manual) Eosinophils # (Manual) PT INR D-Dimer Heparin Anti-Xa Level POC ABG pH ABG pH POC ABG pCO2 POC ABG pO2 ABG pO2 ABG HCO3 ABG O2 Saturation ABG Base Excess ABG Hemoglobin Oxyhemoglobin Sodium Potassium Chloride Carbon Dioxide BUN Creatinine Glucose POC Glucose 111 H 108 H Lactic Acid Calcium Ionized Calcium Phosphorus Magnesium Iron TIBC Ferritin Total Bilirubin Direct Bilirubin AST ALT Alkaline Phosphatase Total Creatine Kinase CK-MB (CK-2) Troponin T C-Reactive Protein Serum Total Protein Total Protein Albumin Sldgm-3-Jvojpjnnp Jncno-0-Ezbkamyom PEP Interpretation Triglycerides LDL Cholesterol Direct HDL Cholesterol Free T4 PTH Intact Urine WBC (Auto) Urine Creatinine Salicylates Acetaminophen Crossmatch 03/24/19 03/24/19 03/24/19 04:50 05:06 12:55 WBC RBC Hgb Hct MCV MCH MCHC RDW Plt Count Lymph % (Auto) [place] % (Auto) Eos % (Auto) Lymph # [place] # Eos # Seg Neutrophils % Seg Neuts % (Manual) Lymphocytes % (Manual) Monocytes % (Manual) Eosinophils % (Manual) Nucleated RBC % Seg Neutrophils # Seg Neutrophils # Man Lymphocytes # (Manual) Monocytes # (Manual) Eosinophils # (Manual) PT INR D-Dimer Heparin Anti-Xa Level POC ABG pH ABG pH POC ABG pCO2 POC ABG pO2 ABG pO2 ABG HCO3 ABG O2 Saturation ABG Base Excess ABG Hemoglobin Oxyhemoglobin Sodium 134 L Potassium 5.1 H Chloride 95.3 L Carbon Dioxide 21 L BUN 85 H Creatinine 6.4 H Glucose 109 H POC Glucose 112 H 110 H Lactic Acid Calcium 5.8 L* Ionized Calcium Phosphorus Magnesium Iron TIBC Ferritin Total Bilirubin Direct Bilirubin AST ALT Alkaline Phosphatase Total Creatine Kinase 5747 H CK-MB (CK-2) Troponin T C-Reactive Protein Serum Total Protein Total Protein Albumin Vwwlz-5-Roocysgic Ontaf-5-Avpxjhlmc PEP Interpretation Triglycerides LDL Cholesterol Direct HDL Cholesterol Free T4 PTH Intact Urine WBC (Auto) Urine Creatinine Salicylates Acetaminophen Crossmatch 03/24/19 03/25/19 03/25/19 23:29 05:00 05:00 WBC RBC Hgb Hct MCV MCH MCHC RDW Plt Count Lymph % (Auto) [place] % (Auto) Eos % (Auto) Lymph # [place] # Eos # Seg Neutrophils % Seg Neuts % (Manual) Lymphocytes % (Manual) Monocytes % (Manual) Eosinophils % (Manual) Nucleated RBC % Seg Neutrophils # Seg Neutrophils # Man Lymphocytes # (Manual) Monocytes # (Manual) Eosinophils # (Manual) PT INR D-Dimer Heparin Anti-Xa Level POC ABG pH ABG pH POC ABG pCO2 POC ABG pO2 ABG pO2 ABG HCO3 ABG O2 Saturation ABG Base Excess ABG Hemoglobin Oxyhemoglobin Sodium 133 L Potassium Chloride 94.0 L Carbon Dioxide 21 L BUN 81 H Creatinine 6.4 H Glucose POC Glucose 109 H Lactic Acid Calcium 5.5 L* Ionized Calcium Phosphorus Magnesium Iron TIBC Ferritin Total Bilirubin Direct Bilirubin AST 80 H ALT Alkaline Phosphatase 202 H Total Creatine Kinase 3589 H CK-MB (CK-2) Troponin T C-Reactive Protein Serum Total Protein Total Protein 5.3 L Albumin 2.4 L Nhiur-4-Cjilzweyp Iygxn-0-Jswzliojp PEP Interpretation Triglycerides LDL Cholesterol Direct HDL Cholesterol Free T4 PTH Intact 329.9 H Urine WBC (Auto) Urine Creatinine Salicylates Acetaminophen Crossmatch 03/25/19 03/25/19 03/26/19 05:00 06:30 04:30 WBC 23.3 H RBC 3.61 L Hgb 10.2 L Hct 31.2 L MCV MCH MCHC RDW Plt Count 57 L Lymph % (Auto) [place] % (Auto) Eos % (Auto) Lymph # [place] # Eos # Seg Neutrophils % Seg Neuts % (Manual) 92.0 H Lymphocytes % (Manual) 6.0 L Monocytes % (Manual) Eosinophils % (Manual) Nucleated RBC % Seg Neutrophils # Seg Neutrophils # Man 21.4 H Lymphocytes # (Manual) Monocytes # (Manual) Eosinophils # (Manual) PT INR D-Dimer Heparin Anti-Xa Level POC ABG pH ABG pH 7.326 L POC ABG pCO2 POC ABG pO2 ABG pO2 109.5 H 137.4 H ABG HCO3 18.8 L 18.6 L ABG O2 Saturation ABG Base Excess -4.4 L -6.8 L ABG Hemoglobin 10.1 L 9.9 L Oxyhemoglobin Sodium Potassium Chloride Carbon Dioxide BUN Creatinine Glucose POC Glucose Lactic Acid Calcium Ionized Calcium Phosphorus Magnesium Iron TIBC Ferritin Total Bilirubin Direct Bilirubin AST ALT Alkaline Phosphatase Total Creatine Kinase CK-MB (CK-2) Troponin T C-Reactive Protein Serum Total Protein Total Protein Albumin Zxshf-7-Fevwfbhgt Jrhaf-4-Ohfkpgoum PEP Interpretation Triglycerides LDL Cholesterol Direct HDL Cholesterol Free T4 PTH Intact Urine WBC (Auto) Urine Creatinine Salicylates Acetaminophen Crossmatch 03/26/19 03/26/19 03/26/19 23:22 Unknown Unknown WBC 19.5 H RBC 3.44 L Hgb 9.8 L Hct 29.9 L MCV MCH MCHC RDW Plt Count 85 L Lymph % (Auto) [place] % (Auto) Eos % (Auto) Lymph # [place] # Eos # Seg Neutrophils % Seg Neuts % (Manual) 95.0 H Lymphocytes % (Manual) 3.0 L Monocytes % (Manual) Eosinophils % (Manual) Nucleated RBC % Seg Neutrophils # Seg Neutrophils # Man 18.5 H Lymphocytes # (Manual) 0.6 L Monocytes # (Manual) Eosinophils # (Manual) PT INR D-Dimer Heparin Anti-Xa Level POC ABG pH ABG pH POC ABG pCO2 POC ABG pO2 ABG pO2 ABG HCO3 ABG O2 Saturation ABG Base Excess ABG Hemoglobin Oxyhemoglobin Sodium 135 L Potassium 5.2 H D Chloride 92.2 L Carbon Dioxide 18 L BUN 109 H Creatinine 8.5 H Glucose 117 H POC Glucose 69 L Lactic Acid Calcium 4.5 L* D Ionized Calcium Phosphorus Magnesium Iron TIBC Ferritin Total Bilirubin Direct Bilirubin AST ALT Alkaline Phosphatase Total Creatine Kinase 4527 H CK-MB (CK-2) Troponin T C-Reactive Protein Serum Total Protein Total Protein Albumin Rgjfd-4-Wanujumrm Tfdpf-4-Ecymgzsae PEP Interpretation Triglycerides LDL Cholesterol Direct HDL Cholesterol Free T4 PTH Intact Urine WBC (Auto) Urine Creatinine Salicylates Acetaminophen Crossmatch 03/27/19 03/27/19 03/27/19 04:30 04:30 09:00 WBC 19.2 H RBC 3.42 L Hgb 9.9 L Hct 30.0 L MCV MCH MCHC RDW Plt Count 84 L Lymph % (Auto) [place] % (Auto) Eos % (Auto) Lymph # [place] # Eos # Seg Neutrophils % Seg Neuts % (Manual) Lymphocytes % (Manual) Monocytes % (Manual) Eosinophils % (Manual) Nucleated RBC % Seg Neutrophils # Seg Neutrophils # Man Lymphocytes # (Manual) Monocytes # (Manual) Eosinophils # (Manual) PT INR D-Dimer Heparin Anti-Xa Level POC ABG pH ABG pH POC ABG pCO2 POC ABG pO2 ABG pO2 ABG HCO3 ABG O2 Saturation ABG Base Excess ABG Hemoglobin Oxyhemoglobin Sodium 135 L Potassium Chloride 93.5 L Carbon Dioxide BUN 84 H Creatinine 7.1 H Glucose POC Glucose Lactic Acid Calcium 5.0 L* Ionized Calcium Phosphorus Magnesium Iron TIBC Ferritin Total Bilirubin Direct Bilirubin AST 78 H ALT Alkaline Phosphatase 135 H Total Creatine Kinase 4677 H CK-MB (CK-2) Troponin T C-Reactive Protein Serum Total Protein Total Protein 4.8 L Albumin 2.3 L Gconp-3-Auupjsxdt Uqxpj-2-Mzqskgtof PEP Interpretation Triglycerides 409 H LDL Cholesterol Direct HDL Cholesterol Free T4 PTH Intact Urine WBC (Auto) Urine Creatinine Salicylates Acetaminophen Crossmatch 03/27/19 03/27/19 03/27/19 12:37 14:15 14:15 WBC RBC Hgb 9.7 L Hct 29.5 L MCV MCH MCHC RDW Plt Count 87 L Lymph % (Auto) [place] % (Auto) Eos % (Auto) Lymph # [place] # Eos # Seg Neutrophils % Seg Neuts % (Manual) Lymphocytes % (Manual) Monocytes % (Manual) Eosinophils % (Manual) Nucleated RBC % Seg Neutrophils # Seg Neutrophils # Man Lymphocytes # (Manual) Monocytes # (Manual) Eosinophils # (Manual) PT 15.9 H INR 1.30 H D-Dimer Heparin Anti-Xa Level POC ABG pH ABG pH POC ABG pCO2 POC ABG pO2 ABG pO2 ABG HCO3 ABG O2 Saturation ABG Base Excess ABG Hemoglobin Oxyhemoglobin Sodium Potassium Chloride Carbon Dioxide BUN Creatinine Glucose POC Glucose 129 H Lactic Acid Calcium Ionized Calcium Phosphorus Magnesium Iron TIBC Ferritin Total Bilirubin Direct Bilirubin AST ALT Alkaline Phosphatase Total Creatine Kinase CK-MB (CK-2) Troponin T C-Reactive Protein Serum Total Protein Total Protein Albumin Nneci-8-Ultbvvhfu Gmclg-5-Xgrdzulcc PEP Interpretation Triglycerides LDL Cholesterol Direct HDL Cholesterol Free T4 PTH Intact Urine WBC (Auto) Urine Creatinine Salicylates Acetaminophen Crossmatch 03/27/19 03/27/19 03/27/19 18:00 19:22 19:23 WBC RBC Hgb Hct MCV MCH MCHC RDW Plt Count Lymph % (Auto) [place] % (Auto) Eos % (Auto) Lymph # [place] # Eos # Seg Neutrophils % Seg Neuts % (Manual) Lymphocytes % (Manual) Monocytes % (Manual) Eosinophils % (Manual) Nucleated RBC % Seg Neutrophils # Seg Neutrophils # Man Lymphocytes # (Manual) Monocytes # (Manual) Eosinophils # (Manual) PT INR D-Dimer Heparin Anti-Xa Level < 0.10 L POC ABG pH ABG pH POC ABG pCO2 POC ABG pO2 ABG pO2 ABG HCO3 ABG O2 Saturation ABG Base Excess ABG Hemoglobin Oxyhemoglobin Sodium Potassium Chloride Carbon Dioxide BUN Creatinine Glucose POC Glucose 121 H Lactic Acid Calcium Ionized Calcium Phosphorus Magnesium Iron TIBC Ferritin Total Bilirubin Direct Bilirubin AST ALT Alkaline Phosphatase Total Creatine Kinase 4517 H CK-MB (CK-2) Troponin T C-Reactive Protein Serum Total Protein Total Protein Albumin Iwddd-6-Obwfdrykd Oxpyg-5-Eywzorhcs PEP Interpretation Triglycerides LDL Cholesterol Direct HDL Cholesterol Free T4 PTH Intact Urine WBC (Auto) Urine Creatinine Salicylates Acetaminophen Crossmatch 03/27/19 03/27/19 03/28/19 22:10 23:52 03:49 WBC RBC Hgb Hct MCV MCH MCHC RDW Plt Count Lymph % (Auto) [place] % (Auto) Eos % (Auto) Lymph # [place] # Eos # Seg Neutrophils % Seg Neuts % (Manual) Lymphocytes % (Manual) Monocytes % (Manual) Eosinophils % (Manual) Nucleated RBC % Seg Neutrophils # Seg Neutrophils # Man Lymphocytes # (Manual) Monocytes # (Manual) Eosinophils # (Manual) PT INR D-Dimer Heparin Anti-Xa Level POC ABG pH 7.338 L ABG pH POC ABG pCO2 33.1 L POC ABG pO2 ABG pO2 ABG HCO3 ABG O2 Saturation ABG Base Excess ABG Hemoglobin Oxyhemoglobin Sodium Potassium Chloride Carbon Dioxide BUN Creatinine Glucose POC Glucose 113 H 117 H Lactic Acid Calcium Ionized Calcium Phosphorus Magnesium Iron TIBC Ferritin Total Bilirubin Direct Bilirubin AST ALT Alkaline Phosphatase Total Creatine Kinase CK-MB (CK-2) Troponin T C-Reactive Protein Serum Total Protein Total Protein Albumin [id number] PEP Interpretation Triglycerides LDL Cholesterol Direct HDL Cholesterol Free T4 PTH Intact Urine WBC (Auto) Urine Creatinine Salicylates Acetaminophen Crossmatch 03/28/19 03/28/19 03/28/19 05:13 05:13 06:18 WBC RBC Hgb Hct MCV MCH MCHC RDW Plt Count Lymph % (Auto) [place] % (Auto) Eos % (Auto) Lymph # [place] # Eos # Seg Neutrophils % Seg Neuts % (Manual) Lymphocytes % (Manual) Monocytes % (Manual) Eosinophils % (Manual) Nucleated RBC % Seg Neutrophils # Seg Neutrophils # Man Lymphocytes # (Manual) Monocytes # (Manual) Eosinophils # (Manual) PT INR D-Dimer Heparin Anti-Xa Level 0.23 L POC ABG pH ABG pH POC ABG pCO2 POC ABG pO2 ABG pO2 ABG HCO3 ABG O2 Saturation ABG Base Excess ABG Hemoglobin Oxyhemoglobin Sodium 135 L Potassium 5.5 H D Chloride 95.1 L Carbon Dioxide 16 L D BUN 129 H Creatinine 9.3 H Glucose 158 H POC Glucose 202 H Lactic Acid Calcium 4.0 L* D Ionized Calcium Phosphorus 12.40 H Magnesium Iron TIBC Ferritin Total Bilirubin Direct Bilirubin AST ALT Alkaline Phosphatase Total Creatine Kinase 4266 H CK-MB (CK-2) Troponin T C-Reactive Protein Serum Total Protein Total Protein Albumin Tpbma-2-Bpgzdnuww Obpqn-9-Wtpfvbhvf PEP Interpretation Triglycerides LDL Cholesterol Direct HDL Cholesterol Free T4 PTH Intact Urine WBC (Auto) Urine Creatinine Salicylates Acetaminophen Crossmatch 03/28/19 03/28/19 03/28/19 08:25 10:00 12:00 WBC RBC Hgb 4.9 L* D Hct 15.4 L* D MCV MCH MCHC RDW Plt Count Lymph % (Auto) [place] % (Auto) Eos % (Auto) Lymph # [place] # Eos # Seg Neutrophils % Seg Neuts % (Manual) Lymphocytes % (Manual) Monocytes % (Manual) Eosinophils % (Manual) Nucleated RBC % Seg Neutrophils # Seg Neutrophils # Man Lymphocytes # (Manual) Monocytes # (Manual) Eosinophils # (Manual) PT 17.9 H INR 1.52 H D-Dimer 4845.98 H Heparin Anti-Xa Level POC ABG pH ABG pH POC ABG pCO2 POC ABG pO2 ABG pO2 ABG HCO3 ABG O2 Saturation ABG Base Excess ABG Hemoglobin Oxyhemoglobin Sodium Potassium Chloride Carbon Dioxide BUN Creatinine Glucose POC Glucose Lactic Acid Calcium Ionized Calcium Phosphorus Magnesium Iron TIBC Ferritin Total Bilirubin Direct Bilirubin AST ALT Alkaline Phosphatase Total Creatine Kinase CK-MB (CK-2) Troponin T C-Reactive Protein Serum Total Protein Total Protein Albumin Mmzna-8-Okqmunojl Rycpk-9-Gscsqfhjs PEP Interpretation Triglycerides LDL Cholesterol Direct HDL Cholesterol Free T4 PTH Intact Urine WBC (Auto) Urine Creatinine Salicylates Acetaminophen Crossmatch See Detail 03/28/19 03/28/19 03/28/19 12:28 14:10 17:43 WBC RBC Hgb 5.9 L* Hct 18.3 L* MCV MCH MCHC RDW Plt Count Lymph % (Auto) [place] % (Auto) Eos % (Auto) Lymph # [place] # Eos # Seg Neutrophils % Seg Neuts % (Manual) Lymphocytes % (Manual) Monocytes % (Manual) Eosinophils % (Manual) Nucleated RBC % Seg Neutrophils # Seg Neutrophils # Man Lymphocytes # (Manual) Monocytes # (Manual) Eosinophils # (Manual) PT INR D-Dimer Heparin Anti-Xa Level POC ABG pH ABG pH POC ABG pCO2 POC ABG pO2 ABG pO2 ABG HCO3 ABG O2 Saturation ABG Base Excess ABG Hemoglobin Oxyhemoglobin Sodium Potassium Chloride Carbon Dioxide BUN Creatinine Glucose POC Glucose 153 H 159 H Lactic Acid Calcium Ionized Calcium Phosphorus Magnesium Iron TIBC Ferritin Total Bilirubin Direct Bilirubin AST ALT Alkaline Phosphatase Total Creatine Kinase CK-MB (CK-2) Troponin T C-Reactive Protein Serum Total Protein Total Protein Albumin Ekpha-0-Jjctcbngt Jofxl-0-Danyzwasw PEP Interpretation Triglycerides LDL Cholesterol Direct HDL Cholesterol Free T4 PTH Intact Urine WBC (Auto) Urine Creatinine Salicylates Acetaminophen Crossmatch 03/28/19 03/28/19 03/28/19 18:10 Unknown 23:59 WBC 24.8 H RBC 3.42 L Hgb 10.2 L D Hct 31.1 L D MCV MCH MCHC RDW 15.4 H Plt Count 54 L Lymph % (Auto) [place] % (Auto) Eos % (Auto) Lymph # [place] # Eos # Seg Neutrophils % Seg Neuts % (Manual) 91.0 H Lymphocytes % (Manual) 8.0 L Monocytes % (Manual) Eosinophils % (Manual) Nucleated RBC % Seg Neutrophils # Seg Neutrophils # Man 22.6 H Lymphocytes # (Manual) Monocytes # (Manual) Eosinophils # (Manual) PT INR D-Dimer Heparin Anti-Xa Level POC ABG pH ABG pH POC ABG pCO2 POC ABG pO2 ABG pO2 ABG HCO3 ABG O2 Saturation ABG Base Excess ABG Hemoglobin Oxyhemoglobin Sodium Potassium 5.7 H Chloride Carbon Dioxide BUN Creatinine Glucose POC Glucose 107 H Lactic Acid Calcium Ionized Calcium Phosphorus Magnesium Iron TIBC Ferritin Total Bilirubin Direct Bilirubin AST ALT Alkaline Phosphatase Total Creatine Kinase CK-MB (CK-2) Troponin T C-Reactive Protein Serum Total Protein Total Protein Albumin Pwpwl-8-Dxorcxzor Usydt-4-Lzdlovaom PEP Interpretation Triglycerides LDL Cholesterol Direct HDL Cholesterol Free T4 PTH Intact Urine WBC (Auto) Urine Creatinine Salicylates Acetaminophen Crossmatch 03/29/19 03/29/19 03/29/19 04:29 05:46 06:22 WBC RBC Hgb 8.6 L Hct 25.7 L MCV MCH MCHC RDW Plt Count 93 L Lymph % (Auto) [place] % (Auto) Eos % (Auto) Lymph # [place] # Eos # Seg Neutrophils % Seg Neuts % (Manual) Lymphocytes % (Manual) Monocytes % (Manual) Eosinophils % (Manual) Nucleated RBC % Seg Neutrophils # Seg Neutrophils # Man Lymphocytes # (Manual) Monocytes # (Manual) Eosinophils # (Manual) PT INR D-Dimer Heparin Anti-Xa Level POC ABG pH ABG pH POC ABG pCO2 32.2 L POC ABG pO2 ABG pO2 ABG HCO3 ABG O2 Saturation ABG Base Excess ABG Hemoglobin Oxyhemoglobin Sodium Potassium Chloride Carbon Dioxide BUN Creatinine Glucose POC Glucose 113 H Lactic Acid Calcium Ionized Calcium Phosphorus Magnesium Iron TIBC Ferritin Total Bilirubin Direct Bilirubin AST ALT Alkaline Phosphatase Total Creatine Kinase CK-MB (CK-2) Troponin T C-Reactive Protein Serum Total Protein Total Protein Albumin Bmowm-7-Idywkemfa Aawqh-4-Cjvwkpwbb PEP Interpretation Triglycerides LDL Cholesterol Direct HDL Cholesterol Free T4 PTH Intact Urine WBC (Auto) Urine Creatinine Salicylates Acetaminophen Crossmatch 03/29/19 03/29/19 03/29/19 06:22 06:22 06:22 WBC 23.2 H RBC 2.91 L Hgb 8.6 L Hct 25.8 L MCV MCH MCHC RDW Plt Count 91 L Lymph % (Auto) [place] % (Auto) Eos % (Auto) Lymph # [place] # Eos # Seg Neutrophils % Seg Neuts % (Manual) Lymphocytes % (Manual) Monocytes % (Manual) Eosinophils % (Manual) Nucleated RBC % Seg Neutrophils # Seg Neutrophils # Man Lymphocytes # (Manual) Monocytes # (Manual) Eosinophils # (Manual) PT INR D-Dimer Heparin Anti-Xa Level POC ABG pH ABG pH POC ABG pCO2 POC ABG pO2 ABG pO2 ABG HCO3 ABG O2 Saturation ABG Base Excess ABG Hemoglobin Oxyhemoglobin Sodium 133 L Potassium Chloride 93.8 L Carbon Dioxide 18 L BUN 109 H Creatinine 7.4 H Glucose 124 H POC Glucose Lactic Acid Calcium 4.6 L* Ionized Calcium Phosphorus Magnesium Iron TIBC Ferritin Total Bilirubin Direct Bilirubin AST ALT Alkaline Phosphatase Total Creatine Kinase 3401 H CK-MB (CK-2) Troponin T C-Reactive Protein Serum Total Protein Total Protein Albumin Ghylt-4-Hmxttwqgr Bdxwk-3-Edrjfucev PEP Interpretation Triglycerides 309 H LDL Cholesterol Direct HDL Cholesterol Free T4 PTH Intact Urine WBC (Auto) Urine Creatinine Salicylates Acetaminophen Crossmatch 03/29/19 03/29/19 03/29/19 11:48 11:48 18:24 WBC RBC Hgb 7.8 L Hct 23.2 L MCV MCH MCHC RDW Plt Count Lymph % (Auto) [place] % (Auto) Eos % (Auto) Lymph # [place] # Eos # Seg Neutrophils % Seg Neuts % (Manual) Lymphocytes % (Manual) Monocytes % (Manual) Eosinophils % (Manual) Nucleated RBC % Seg Neutrophils # Seg Neutrophils # Man Lymphocytes # (Manual) Monocytes # (Manual) Eosinophils # (Manual) PT 15.3 H INR 1.24 H D-Dimer Heparin Anti-Xa Level POC ABG pH ABG pH POC ABG pCO2 POC ABG pO2 ABG pO2 ABG HCO3 ABG O2 Saturation ABG Base Excess ABG Hemoglobin Oxyhemoglobin Sodium Potassium Chloride Carbon Dioxide BUN Creatinine Glucose POC Glucose 122 H Lactic Acid Calcium Ionized Calcium Phosphorus Magnesium Iron TIBC Ferritin Total Bilirubin Direct Bilirubin AST ALT Alkaline Phosphatase Total Creatine Kinase CK-MB (CK-2) Troponin T C-Reactive Protein Serum Total Protein Total Protein Albumin Lxeea-6-Obrsfpfsf Xnxia-6-Ikygsropr PEP Interpretation Triglycerides LDL Cholesterol Direct HDL Cholesterol Free T4 PTH Intact Urine WBC (Auto) Urine Creatinine Salicylates Acetaminophen Crossmatch 03/30/19 03/30/19 03/30/19 00:40 04:31 05:04 WBC RBC Hgb 7.6 L Hct 23.0 L MCV MCH MCHC RDW Plt Count Lymph % (Auto) [place] % (Auto) Eos % (Auto) Lymph # [place] # Eos # Seg Neutrophils % Seg Neuts % (Manual) Lymphocytes % (Manual) Monocytes % (Manual) Eosinophils % (Manual) Nucleated RBC % Seg Neutrophils # Seg Neutrophils # Man Lymphocytes # (Manual) Monocytes # (Manual) Eosinophils # (Manual) PT INR D-Dimer Heparin Anti-Xa Level POC ABG pH 7.346 L ABG pH POC ABG pCO2 POC ABG pO2 62 L ABG pO2 ABG HCO3 ABG O2 Saturation ABG Base Excess ABG Hemoglobin Oxyhemoglobin Sodium Potassium Chloride Carbon Dioxide BUN 79 H Creatinine 6.4 H Glucose POC Glucose Lactic Acid Calcium 6.1 L D Ionized Calcium Phosphorus Magnesium Iron TIBC Ferritin Total Bilirubin Direct Bilirubin AST ALT Alkaline Phosphatase Total Creatine Kinase CK-MB (CK-2) Troponin T C-Reactive Protein Serum Total Protein Total Protein Albumin Jbrxd-5-Cefmfuenc Tuyla-8-Efrvjkapo PEP Interpretation Triglycerides LDL Cholesterol Direct HDL Cholesterol Free T4 PTH Intact Urine WBC (Auto) Urine Creatinine Salicylates Acetaminophen Crossmatch 03/30/19 03/30/19 03/30/19 08:45 12:09 22:43 WBC 14.3 H RBC 2.33 L Hgb 7.0 L 7.4 L Hct 21.0 L 22.3 L MCV MCH MCHC RDW 15.6 H Plt Count 135 L Lymph % (Auto) [place] % (Auto) Eos % (Auto) Lymph # [place] # Eos # Seg Neutrophils % Seg Neuts % (Manual) Lymphocytes % (Manual) Monocytes % (Manual) Eosinophils % (Manual) Nucleated RBC % Seg Neutrophils # Seg Neutrophils # Man Lymphocytes # (Manual) Monocytes # (Manual) Eosinophils # (Manual) PT INR D-Dimer Heparin Anti-Xa Level POC ABG pH ABG pH POC ABG pCO2 POC ABG pO2 ABG pO2 ABG HCO3 ABG O2 Saturation ABG Base Excess ABG Hemoglobin Oxyhemoglobin Sodium Potassium Chloride Carbon Dioxide BUN Creatinine Glucose POC Glucose Lactic Acid Calcium Ionized Calcium 3.7 L Phosphorus Magnesium Iron TIBC Ferritin Total Bilirubin Direct Bilirubin AST ALT Alkaline Phosphatase Total Creatine Kinase CK-MB (CK-2) Troponin T C-Reactive Protein Serum Total Protein Total Protein Albumin Hhfja-8-Ijirnefrq Sfebz-2-Jkzkajwqn PEP Interpretation Triglycerides LDL Cholesterol Direct HDL Cholesterol Free T4 PTH Intact Urine WBC (Auto) Urine Creatinine Salicylates Acetaminophen Crossmatch 03/30/19 03/30/19 03/31/19 23:38 Unknown 04:44 WBC 11.5 H RBC 2.40 L Hgb 7.3 L Hct 21.9 L MCV MCH MCHC RDW 15.4 H Plt Count Lymph % (Auto) 10.6 L [place] % (Auto) Eos % (Auto) Lymph # [place] # Eos # Seg Neutrophils % 81.7 H Seg Neuts % (Manual) Lymphocytes % (Manual) Monocytes % (Manual) Eosinophils % (Manual) Nucleated RBC % Seg Neutrophils # 9.4 H Seg Neutrophils # Man Lymphocytes # (Manual) Monocytes # (Manual) Eosinophils # (Manual) PT INR D-Dimer Heparin Anti-Xa Level POC ABG pH ABG pH POC ABG pCO2 POC ABG pO2 ABG pO2 ABG HCO3 ABG O2 Saturation ABG Base Excess ABG Hemoglobin Oxyhemoglobin Sodium Potassium Chloride Carbon Dioxide BUN Creatinine Glucose POC Glucose 155 H Lactic Acid Calcium Ionized Calcium Phosphorus Magnesium Iron TIBC Ferritin Total Bilirubin Direct Bilirubin 0.4 H AST 63 H ALT Alkaline Phosphatase Total Creatine Kinase CK-MB (CK-2) Troponin T C-Reactive Protein Serum Total Protein Total Protein 4.9 L Albumin 2.2 L Jriyq-6-Dhjxyowxq Hhhdn-6-Ywnzdpiuc PEP Interpretation Triglycerides LDL Cholesterol Direct HDL Cholesterol Free T4 PTH Intact Urine WBC (Auto) Urine Creatinine Salicylates Acetaminophen Crossmatch 03/31/19 03/31/19 03/31/19 04:44 05:44 08:20 WBC RBC Hgb Hct MCV MCH MCHC RDW Plt Count Lymph % (Auto) [place] % (Auto) Eos % (Auto) Lymph # [place] # Eos # Seg Neutrophils % Seg Neuts % (Manual) Lymphocytes % (Manual) Monocytes % (Manual) Eosinophils % (Manual) Nucleated RBC % Seg Neutrophils # Seg Neutrophils # Man Lymphocytes # (Manual) Monocytes # (Manual) Eosinophils # (Manual) PT INR D-Dimer Heparin Anti-Xa Level POC ABG pH ABG pH POC ABG pCO2 53.5 H POC ABG pO2 62 L ABG pO2 ABG HCO3 ABG O2 Saturation ABG Base Excess ABG Hemoglobin Oxyhemoglobin Sodium 135 L Potassium Chloride 96.7 L Carbon Dioxide 19 L BUN 94 H Creatinine 7.8 H Glucose POC Glucose Lactic Acid Calcium 5.3 L* Ionized Calcium Phosphorus 8.20 H Magnesium Iron TIBC Ferritin Total Bilirubin Direct Bilirubin 0.4 H AST 60 H ALT Alkaline Phosphatase Total Creatine Kinase CK-MB (CK-2) Troponin T C-Reactive Protein Serum Total Protein Total Protein 4.8 L Albumin 2.1 L Ahyse-7-Tcmqaytnt Qwwfh-6-Jgqjxmhbh PEP Interpretation Triglycerides LDL Cholesterol Direct HDL Cholesterol Free T4 PTH Intact Urine WBC (Auto) Urine Creatinine Salicylates Acetaminophen Crossmatch 03/31/19 04/01/19 04/01/19 22:14 04:27 04:27 WBC RBC 2.60 L Hgb 8.0 L Hct 24.1 L MCV MCH MCHC RDW 15.7 H Plt Count Lymph % (Auto) 7.9 L [place] % (Auto) Eos % (Auto) Lymph # 0.7 L [place] # Eos # Seg Neutrophils % 83.6 H Seg Neuts % (Manual) Lymphocytes % (Manual) Monocytes % (Manual) Eosinophils % (Manual) Nucleated RBC % Seg Neutrophils # Seg Neutrophils # Man Lymphocytes # (Manual) Monocytes # (Manual) Eosinophils # (Manual) PT INR D-Dimer Heparin Anti-Xa Level POC ABG pH 7.286 L ABG pH POC ABG pCO2 54.7 H POC ABG pO2 179 H ABG pO2 ABG HCO3 ABG O2 Saturation ABG Base Excess ABG Hemoglobin Oxyhemoglobin Sodium Potassium Chloride Carbon Dioxide BUN 68 H Creatinine 6.6 H Glucose POC Glucose Lactic Acid Calcium 6.5 L D Ionized Calcium Phosphorus 7.30 H Magnesium Iron TIBC Ferritin Total Bilirubin Direct Bilirubin AST ALT Alkaline Phosphatase Total Creatine Kinase 1652 H CK-MB (CK-2) Troponin T C-Reactive Protein Serum Total Protein Total Protein Albumin Gynsd-8-Wdopohqux Itedi-7-Qamugnogv PEP Interpretation Triglycerides LDL Cholesterol Direct HDL Cholesterol Free T4 PTH Intact Urine WBC (Auto) Urine Creatinine Salicylates Acetaminophen Crossmatch 04/01/19 04/01/19 04/01/19 05:14 05:37 18:37 WBC RBC Hgb Hct MCV MCH MCHC RDW Plt Count Lymph % (Auto) [place] % (Auto) Eos % (Auto) Lymph # [place] # Eos # Seg Neutrophils % Seg Neuts % (Manual) Lymphocytes % (Manual) Monocytes % (Manual) Eosinophils % (Manual) Nucleated RBC % Seg Neutrophils # Seg Neutrophils # Man Lymphocytes # (Manual) Monocytes # (Manual) Eosinophils # (Manual) PT INR D-Dimer Heparin Anti-Xa Level POC ABG pH 7.283 L ABG pH POC ABG pCO2 53.4 H POC ABG pO2 241 H ABG pO2 ABG HCO3 ABG O2 Saturation ABG Base Excess ABG Hemoglobin Oxyhemoglobin Sodium Potassium Chloride Carbon Dioxide BUN Creatinine Glucose POC Glucose 111 H 119 H Lactic Acid Calcium Ionized Calcium Phosphorus Magnesium Iron TIBC Ferritin Total Bilirubin Direct Bilirubin AST ALT Alkaline Phosphatase Total Creatine Kinase CK-MB (CK-2) Troponin T C-Reactive Protein Serum Total Protein Total Protein Albumin Ysvmp-2-Iiziwyyzm Yelin-5-Htyunbjav PEP Interpretation Triglycerides LDL Cholesterol Direct HDL Cholesterol Free T4 PTH Intact Urine WBC (Auto) Urine Creatinine Salicylates Acetaminophen Crossmatch 04/01/19 04/02/19 04/02/19 21:28 04:40 05:03 WBC RBC 2.36 L Hgb 7.2 L Hct 21.9 L MCV MCH MCHC RDW 16.0 H Plt Count Lymph % (Auto) 10.8 L [place] % (Auto) Eos % (Auto) Lymph # 0.8 L [place] # Eos # Seg Neutrophils % 80.3 H Seg Neuts % (Manual) Lymphocytes % (Manual) Monocytes % (Manual) Eosinophils % (Manual) Nucleated RBC % Seg Neutrophils # Seg Neutrophils # Man Lymphocytes # (Manual) Monocytes # (Manual) Eosinophils # (Manual) PT INR D-Dimer Heparin Anti-Xa Level POC ABG pH 7.299 L 7.300 L ABG pH POC ABG pCO2 48.2 H 45.2 H POC ABG pO2 133 H 107 H ABG pO2 ABG HCO3 ABG O2 Saturation ABG Base Excess ABG Hemoglobin Oxyhemoglobin Sodium Potassium Chloride Carbon Dioxide BUN Creatinine Glucose POC Glucose Lactic Acid Calcium Ionized Calcium Phosphorus Magnesium Iron TIBC Ferritin Total Bilirubin Direct Bilirubin AST ALT Alkaline Phosphatase Total Creatine Kinase CK-MB (CK-2) Troponin T C-Reactive Protein Serum Total Protein Total Protein Albumin Drwhx-6-Ikozwjiej Qbtlx-5-Lklnmijtz PEP Interpretation Triglycerides LDL Cholesterol Direct HDL Cholesterol Free T4 PTH Intact Urine WBC (Auto) Urine Creatinine Salicylates Acetaminophen Crossmatch 04/02/19 04/02/19 04/02/19 05:03 05:03 12:15 WBC RBC Hgb 7.4 L Hct 22.6 L MCV MCH MCHC RDW Plt Count Lymph % (Auto) [place] % (Auto) Eos % (Auto) Lymph # [place] # Eos # Seg Neutrophils % Seg Neuts % (Manual) Lymphocytes % (Manual) Monocytes % (Manual) Eosinophils % (Manual) Nucleated RBC % Seg Neutrophils # Seg Neutrophils # Man Lymphocytes # (Manual) Monocytes # (Manual) Eosinophils # (Manual) PT INR D-Dimer Heparin Anti-Xa Level POC ABG pH ABG pH POC ABG pCO2 POC ABG pO2 ABG pO2 ABG HCO3 ABG O2 Saturation ABG Base Excess ABG Hemoglobin Oxyhemoglobin Sodium 136 L Potassium Chloride 97.8 L Carbon Dioxide 18 L BUN 82 H Creatinine 8.2 H Glucose POC Glucose Lactic Acid Calcium 6.7 L Ionized Calcium Phosphorus 7.50 H Magnesium Iron 26 L TIBC 138 L Ferritin 607.0 H Total Bilirubin Direct Bilirubin AST ALT Alkaline Phosphatase Total Creatine Kinase CK-MB (CK-2) Troponin T C-Reactive Protein Serum Total Protein Total Protein Albumin Vctfk-8-Hedolqifl Iqtve-8-Kaduwfjqz PEP Interpretation Triglycerides LDL Cholesterol Direct HDL Cholesterol Free T4 PTH Intact Urine WBC (Auto) Urine Creatinine Salicylates Acetaminophen Crossmatch 04/02/19 04/02/19 04/03/19 16:34 17:14 04:18 WBC RBC Hgb Hct MCV MCH MCHC RDW Plt Count Lymph % (Auto) [place] % (Auto) Eos % (Auto) Lymph # [place] # Eos # Seg Neutrophils % Seg Neuts % (Manual) Lymphocytes % (Manual) Monocytes % (Manual) Eosinophils % (Manual) Nucleated RBC % Seg Neutrophils # Seg Neutrophils # Man Lymphocytes # (Manual) Monocytes # (Manual) Eosinophils # (Manual) PT INR D-Dimer Heparin Anti-Xa Level POC ABG pH ABG pH POC ABG pCO2 POC ABG pO2 146 H ABG pO2 ABG HCO3 ABG O2 Saturation ABG Base Excess ABG Hemoglobin Oxyhemoglobin Sodium Potassium Chloride Carbon Dioxide BUN Creatinine Glucose POC Glucose 108 H Lactic Acid Calcium Ionized Calcium Phosphorus Magnesium Iron TIBC Ferritin Total Bilirubin Direct Bilirubin AST ALT Alkaline Phosphatase Total Creatine Kinase CK-MB (CK-2) Troponin T C-Reactive Protein Serum Total Protein Total Protein Albumin Vdqjl-0-Wzwjidktt Kpnmx-4-Juwwdjxqu PEP Interpretation Triglycerides LDL Cholesterol Direct HDL Cholesterol Free T4 PTH Intact Urine WBC (Auto) Urine Creatinine Salicylates Acetaminophen Crossmatch See Detail 04/03/19 04/03/19 04/03/19 04:25 08:30 18:24 WBC RBC 2.40 L Hgb 7.3 L Hct 21.9 L MCV MCH MCHC RDW Plt Count Lymph % (Auto) [place] % (Auto) 7.7 H Eos % (Auto) Lymph # 0.9 L [place] # Eos # Seg Neutrophils % 74.6 H Seg Neuts % (Manual) Lymphocytes % (Manual) Monocytes % (Manual) Eosinophils % (Manual) Nucleated RBC % Seg Neutrophils # Seg Neutrophils # Man Lymphocytes # (Manual) Monocytes # (Manual) Eosinophils # (Manual) PT INR D-Dimer Heparin Anti-Xa Level POC ABG pH ABG pH POC ABG pCO2 POC ABG pO2 ABG pO2 ABG HCO3 ABG O2 Saturation ABG Base Excess ABG Hemoglobin Oxyhemoglobin Sodium 136 L Potassium Chloride 97.0 L Carbon Dioxide BUN 58 H Creatinine 7.3 H Glucose POC Glucose 106 H Lactic Acid Calcium 7.5 L Ionized Calcium Phosphorus 5.80 H D Magnesium Iron TIBC Ferritin Total Bilirubin Direct Bilirubin AST ALT Alkaline Phosphatase Total Creatine Kinase CK-MB (CK-2) Troponin T C-Reactive Protein Serum Total Protein Total Protein Albumin Bjznk-9-Rjjaqlivc Xqipu-7-Xqgiwandr PEP Interpretation Triglycerides LDL Cholesterol Direct HDL Cholesterol Free T4 PTH Intact Urine WBC (Auto) Urine Creatinine Salicylates Acetaminophen Crossmatch 04/03/19 04/04/19 04/04/19 23:43 04:47 04:47 WBC RBC 2.72 L Hgb 8.3 L Hct 24.7 L MCV MCH MCHC RDW 15.6 H Plt Count Lymph % (Auto) [place] % (Auto) 10.1 H Eos % (Auto) Lymph # 0.8 L [place] # Eos # Seg Neutrophils % 71.4 H Seg Neuts % (Manual) Lymphocytes % (Manual) Monocytes % (Manual) Eosinophils % (Manual) Nucleated RBC % Seg Neutrophils # Seg Neutrophils # Man Lymphocytes # (Manual) Monocytes # (Manual) Eosinophils # (Manual) PT INR D-Dimer Heparin Anti-Xa Level POC ABG pH ABG pH POC ABG pCO2 POC ABG pO2 ABG pO2 123.8 H ABG HCO3 ABG O2 Saturation ABG Base Excess -3.0 L ABG Hemoglobin 7.9 L Oxyhemoglobin Sodium 134 L Potassium Chloride 97.9 L Carbon Dioxide BUN 64 H Creatinine 8.1 H Glucose POC Glucose Lactic Acid Calcium 7.2 L Ionized Calcium Phosphorus Magnesium Iron TIBC Ferritin Total Bilirubin Direct Bilirubin AST ALT Alkaline Phosphatase Total Creatine Kinase CK-MB (CK-2) Troponin T C-Reactive Protein Serum Total Protein Total Protein Albumin Lblpi-1-Thrmkgkry Umdby-0-Lxyfukztb PEP Interpretation Triglycerides LDL Cholesterol Direct HDL Cholesterol Free T4 PTH Intact Urine WBC (Auto) Urine Creatinine Salicylates Acetaminophen Crossmatch 04/04/19 04/04/19 04/04/19 06:07 13:40 18:18 WBC RBC Hgb Hct MCV MCH MCHC RDW Plt Count Lymph % (Auto) [place] % (Auto) Eos % (Auto) Lymph # [place] # Eos # Seg Neutrophils % Seg Neuts % (Manual) Lymphocytes % (Manual) Monocytes % (Manual) Eosinophils % (Manual) Nucleated RBC % Seg Neutrophils # Seg Neutrophils # Man Lymphocytes # (Manual) Monocytes # (Manual) Eosinophils # (Manual) PT INR D-Dimer Heparin Anti-Xa Level POC ABG pH ABG pH POC ABG pCO2 POC ABG pO2 ABG pO2 95.9 H ABG HCO3 ABG O2 Saturation ABG Base Excess -3.0 L ABG Hemoglobin 8.5 L Oxyhemoglobin Sodium Potassium Chloride Carbon Dioxide BUN Creatinine Glucose POC Glucose 107 H 107 H Lactic Acid Calcium Ionized Calcium Phosphorus Magnesium Iron TIBC Ferritin Total Bilirubin Direct Bilirubin AST ALT Alkaline Phosphatase Total Creatine Kinase CK-MB (CK-2) Troponin T C-Reactive Protein Serum Total Protein Total Protein Albumin Cmtob-9-Eguqsfuey Wimsm-4-Awqxwjbws PEP Interpretation Triglycerides LDL Cholesterol Direct HDL Cholesterol Free T4 PTH Intact Urine WBC (Auto) Urine Creatinine Salicylates Acetaminophen Crossmatch 04/04/19 04/05/1919 21:22 04:09 04:09 WBC RBC 2.76 L Hgb 8.4 L Hct 25.4 L MCV MCH MCHC RDW 15.8 H Plt Count 133 L Lymph % (Auto) [place] % (Auto) 9.6 H Eos % (Auto) Lymph # 0.7 L [place] # Eos # Seg Neutrophils % 72.6 H Seg Neuts % (Manual) Lymphocytes % (Manual) Monocytes % (Manual) Eosinophils % (Manual) Nucleated RBC % Seg Neutrophils # Seg Neutrophils # Man Lymphocytes # (Manual) Monocytes # (Manual) Eosinophils # (Manual) PT INR D-Dimer Heparin Anti-Xa Level POC ABG pH ABG pH POC ABG pCO2 47.2 H POC ABG pO2 137 H ABG pO2 ABG HCO3 ABG O2 Saturation ABG Base Excess ABG Hemoglobin Oxyhemoglobin Sodium 136 L Potassium Chloride Carbon Dioxide BUN 46 H Creatinine 6.7 H Glucose POC Glucose Lactic Acid Calcium 7.7 L Ionized Calcium Phosphorus Magnesium Iron TIBC Ferritin Total Bilirubin Direct Bilirubin AST ALT Alkaline Phosphatase Total Creatine Kinase CK-MB (CK-2) Troponin T C-Reactive Protein Serum Total Protein Total Protein Albumin Hexob-3-Flhbyskjl Ovzxk-5-Blsuueuzc PEP Interpretation Triglycerides LDL Cholesterol Direct HDL Cholesterol Free T4 PTH Intact Urine WBC (Auto) Urine Creatinine Salicylates Acetaminophen Crossmatch 04/05/19 04/05/19 04/05/19 05:28 06:14 16:50 WBC RBC Hgb Hct MCV MCH MCHC RDW Plt Count Lymph % (Auto) [place] % (Auto) Eos % (Auto) Lymph # [place] # Eos # Seg Neutrophils % Seg Neuts % (Manual) Lymphocytes % (Manual) Monocytes % (Manual) Eosinophils % (Manual) Nucleated RBC % Seg Neutrophils # Seg Neutrophils # Man Lymphocytes # (Manual) Monocytes # (Manual) Eosinophils # (Manual) PT INR D-Dimer Heparin Anti-Xa Level POC ABG pH ABG pH POC ABG pCO2 POC ABG pO2 67 L ABG pO2 ABG HCO3 ABG O2 Saturation ABG Base Excess ABG Hemoglobin Oxyhemoglobin Sodium Potassium Chloride Carbon Dioxide BUN Creatinine Glucose POC Glucose 108 H Lactic Acid Calcium Ionized Calcium Phosphorus Magnesium Iron TIBC Ferritin Total Bilirubin Direct Bilirubin AST ALT Alkaline Phosphatase Total Creatine Kinase CK-MB (CK-2) Troponin T C-Reactive Protein Serum Total Protein Total Protein Albumin Oszwa-6-Knasmdmkg Qtfjs-3-Jhmijmflw PEP Interpretation Triglycerides LDL Cholesterol Direct HDL Cholesterol Free T4 PTH Intact Urine WBC (Auto) 40.0 H Urine Creatinine Salicylates Acetaminophen Crossmatch 04/05/19 04/06/19 04/06/19 17:22 00:13 04:44 WBC RBC 2.48 L Hgb 7.5 L Hct 22.9 L MCV MCH MCHC RDW 16.0 H Plt Count 107 L Lymph % (Auto) [place] % (Auto) 10.7 H Eos % (Auto) Lymph # 1.0 L [place] # Eos # Seg Neutrophils % Seg Neuts % (Manual) Lymphocytes % (Manual) Monocytes % (Manual) Eosinophils % (Manual) Nucleated RBC % Seg Neutrophils # Seg Neutrophils # Man Lymphocytes # (Manual) Monocytes # (Manual) Eosinophils # (Manual) PT INR D-Dimer Heparin Anti-Xa Level POC ABG pH ABG pH POC ABG pCO2 POC ABG pO2 ABG pO2 ABG HCO3 ABG O2 Saturation ABG Base Excess ABG Hemoglobin Oxyhemoglobin Sodium Potassium Chloride Carbon Dioxide BUN Creatinine Glucose POC Glucose 118 H 138 H Lactic Acid Calcium Ionized Calcium Phosphorus Magnesium Iron TIBC Ferritin Total Bilirubin Direct Bilirubin AST ALT Alkaline Phosphatase Total Creatine Kinase CK-MB (CK-2) Troponin T C-Reactive Protein Serum Total Protein Total Protein Albumin Wthvr-8-Cnxpdeikr Refax-6-[place] PEP Interpretation Triglycerides LDL Cholesterol Direct HDL Cholesterol Free T4 PTH Intact Urine WBC (Auto) Urine Creatinine Salicylates Acetaminophen Crossmatch 04/06/19 04/06/19 04/06/19 04:44 05:20 05:23 WBC RBC Hgb Hct MCV MCH MCHC RDW Plt Count Lymph % (Auto) [place] % (Auto) Eos % (Auto) Lymph # [place] # Eos # Seg Neutrophils % Seg Neuts % (Manual) Lymphocytes % (Manual) Monocytes % (Manual) Eosinophils % (Manual) Nucleated RBC % Seg Neutrophils # Seg Neutrophils # Man Lymphocytes # (Manual) Monocytes # (Manual) Eosinophils # (Manual) PT INR D-Dimer Heparin Anti-Xa Level POC ABG pH ABG pH POC ABG pCO2 POC ABG pO2 ABG pO2 104.0 H ABG HCO3 ABG O2 Saturation ABG Base Excess -2.1 L ABG Hemoglobin 7.3 L Oxyhemoglobin Sodium Potassium Chloride Carbon Dioxide BUN 64 H Creatinine 8.2 H Glucose 103 H POC Glucose 118 H Lactic Acid Calcium 7.3 L Ionized Calcium Phosphorus Magnesium Iron TIBC Ferritin Total Bilirubin Direct Bilirubin AST ALT Alkaline Phosphatase Total Creatine Kinase CK-MB (CK-2) Troponin T C-Reactive Protein Serum Total Protein Total Protein Albumin Exemm-0-Fnvinvbke Tlwir-0-Zhvtdjhct PEP Interpretation Triglycerides LDL Cholesterol Direct HDL Cholesterol Free T4 PTH Intact Urine WBC (Auto) Urine Creatinine Salicylates Acetaminophen Crossmatch 04/06/19 04/07/19 04/07/19 12:02 05:40 05:40 WBC RBC 2.59 L Hgb 7.9 L Hct 23.8 L MCV MCH MCHC RDW 15.8 H Plt Count 89 L Lymph % (Auto) [place] % (Auto) 10.3 H Eos % (Auto) Lymph # 1.1 L [place] # Eos # Seg Neutrophils % Seg Neuts % (Manual) Lymphocytes % (Manual) Monocytes % (Manual) Eosinophils % (Manual) Nucleated RBC % Seg Neutrophils # Seg Neutrophils # Man Lymphocytes # (Manual) Monocytes # (Manual) Eosinophils # (Manual) PT INR D-Dimer Heparin Anti-Xa Level POC ABG pH ABG pH POC ABG pCO2 POC ABG pO2 ABG pO2 ABG HCO3 ABG O2 Saturation ABG Base Excess ABG Hemoglobin Oxyhemoglobin Sodium 136 L Potassium 3.5 L Chloride Carbon Dioxide BUN 46 H Creatinine 6.2 H Glucose POC Glucose 108 H Lactic Acid Calcium 7.9 L Ionized Calcium Phosphorus Magnesium Iron TIBC Ferritin Total Bilirubin Direct Bilirubin AST ALT Alkaline Phosphatase Total Creatine Kinase CK-MB (CK-2) Troponin T C-Reactive Protein Serum Total Protein Total Protein Albumin Rhtsq-5-Mwbbhwtvv Wxppa-6-Jcrvbcspb PEP Interpretation Triglycerides LDL Cholesterol Direct HDL Cholesterol Free T4 PTH Intact Urine WBC (Auto) Urine Creatinine Salicylates Acetaminophen Crossmatch 04/07/19 04/09/19 04/09/19 12:57 04:28 04:28 WBC RBC 2.85 L Hgb 8.7 L Hct 26.2 L MCV MCH MCHC RDW 15.6 H Plt Count Lymph % (Auto) [place] % (Auto) 10.4 H Eos % (Auto) Lymph # 1.0 L [place] # Eos # Seg Neutrophils % 73.3 H Seg Neuts % (Manual) Lymphocytes % (Manual) Monocytes % (Manual) Eosinophils % (Manual) Nucleated RBC % Seg Neutrophils # Seg Neutrophils # Man Lymphocytes # (Manual) Monocytes # (Manual) Eosinophils # (Manual) PT INR D-Dimer Heparin Anti-Xa Level POC ABG pH ABG pH POC ABG pCO2 POC ABG pO2 107 H ABG pO2 ABG HCO3 ABG O2 Saturation ABG Base Excess ABG Hemoglobin Oxyhemoglobin Sodium Potassium 3.5 L Chloride 97.8 L Carbon Dioxide BUN 62 H Creatinine 8.1 H Glucose POC Glucose Lactic Acid Calcium 8.2 L Ionized Calcium Phosphorus 5.10 H Magnesium Iron TIBC Ferritin Total Bilirubin Direct Bilirubin AST ALT Alkaline Phosphatase Total Creatine Kinase CK-MB (CK-2) Troponin T C-Reactive Protein Serum Total Protein Total Protein Albumin Womrv-1-Exjzejmxv Bpeso-8-Akkmegymb PEP Interpretation Triglycerides LDL Cholesterol Direct HDL Cholesterol Free T4 PTH Intact Urine WBC (Auto) Urine Creatinine Salicylates Acetaminophen Crossmatch 04/10/19 04/11/19 04/11/19 18:15 00:25 04:16 WBC 11.5 H RBC 2.91 L Hgb 8.9 L Hct 27.6 L MCV 95 H MCH MCHC RDW 17.5 H Plt Count Lymph % (Auto) [place] % (Auto) Eos % (Auto) Lymph # [place] # Eos # Seg Neutrophils % Seg Neuts % (Manual) 71.0 H Lymphocytes % (Manual) Monocytes % (Manual) 8.0 H Eosinophils % (Manual) Nucleated RBC % Seg Neutrophils # Seg Neutrophils # Man 8.2 H Lymphocytes # (Manual) Monocytes # (Manual) 0.9 H Eosinophils # (Manual) PT INR D-Dimer Heparin Anti-Xa Level POC ABG pH ABG pH POC ABG pCO2 POC ABG pO2 ABG pO2 ABG HCO3 ABG O2 Saturation ABG Base Excess ABG Hemoglobin Oxyhemoglobin Sodium Potassium Chloride Carbon Dioxide BUN Creatinine Glucose POC Glucose 109 H 114 H Lactic Acid Calcium Ionized Calcium Phosphorus Magnesium Iron TIBC Ferritin Total Bilirubin Direct Bilirubin AST ALT Alkaline Phosphatase Total Creatine Kinase CK-MB (CK-2) Troponin T C-Reactive Protein Serum Total Protein Total Protein Albumin Uzrin-5-Ailfbvxdm Zvold-7-Fhsfdhymn PEP Interpretation Triglycerides LDL Cholesterol Direct HDL Cholesterol Free T4 PTH Intact Urine WBC (Auto) Urine Creatinine Salicylates Acetaminophen Crossmatch 04/11/19 04/11/19 04/11/19 06:47 09:21 12:15 WBC RBC Hgb Hct MCV MCH MCHC RDW Plt Count Lymph % (Auto) [place] % (Auto) Eos % (Auto) Lymph # [place] # Eos # Seg Neutrophils % Seg Neuts % (Manual) Lymphocytes % (Manual) Monocytes % (Manual) Eosinophils % (Manual) Nucleated RBC % Seg Neutrophils # Seg Neutrophils # Man Lymphocytes # (Manual) Monocytes # (Manual) Eosinophils # (Manual) PT INR D-Dimer Heparin Anti-Xa Level POC ABG pH ABG pH POC ABG pCO2 POC ABG pO2 ABG pO2 ABG HCO3 ABG O2 Saturation ABG Base Excess ABG Hemoglobin Oxyhemoglobin Sodium Potassium 3.5 L Chloride Carbon Dioxide BUN 45 H Creatinine 6.0 H Glucose 113 H POC Glucose 106 H 109 H Lactic Acid Calcium Ionized Calcium Phosphorus Magnesium Iron TIBC Ferritin Total Bilirubin Direct Bilirubin AST ALT Alkaline Phosphatase Total Creatine Kinase CK-MB (CK-2) Troponin T C-Reactive Protein Serum Total Protein Total Protein Albumin Avssk-6-Vmkmbhzlz Lvokr-6-Qpmwsdhhq PEP Interpretation Triglycerides LDL Cholesterol Direct HDL Cholesterol Free T4 PTH Intact Urine WBC (Auto) Urine Creatinine Salicylates Acetaminophen Crossmatch 04/11/19 04/12/19 04/12/19 18:42 12:13 23:52 WBC RBC Hgb Hct MCV MCH MCHC RDW Plt Count Lymph % (Auto) [place] % (Auto) Eos % (Auto) Lymph # [place] # Eos # Seg Neutrophils % Seg Neuts % (Manual) Lymphocytes % (Manual) Monocytes % (Manual) Eosinophils % (Manual) Nucleated RBC % Seg Neutrophils # Seg Neutrophils # Man Lymphocytes # (Manual) Monocytes # (Manual) Eosinophils # (Manual) PT INR D-Dimer Heparin Anti-Xa Level POC ABG pH ABG pH POC ABG pCO2 POC ABG pO2 ABG pO2 ABG HCO3 ABG O2 Saturation ABG Base Excess ABG Hemoglobin Oxyhemoglobin Sodium Potassium Chloride Carbon Dioxide BUN Creatinine Glucose POC Glucose 107 H 115 H 124 H Lactic Acid Calcium Ionized Calcium Phosphorus Magnesium Iron TIBC Ferritin Total Bilirubin Direct Bilirubin AST ALT Alkaline Phosphatase Total Creatine Kinase CK-MB (CK-2) Troponin T C-Reactive Protein Serum Total Protein Total Protein Albumin Sdnfe-1-Dwikcosjz Yuyhf-4-Nlykexiyk PEP Interpretation Triglycerides LDL Cholesterol Direct HDL Cholesterol Free T4 PTH Intact Urine WBC (Auto) Urine Creatinine Salicylates Acetaminophen Crossmatch 04/13/19 04/13/19 04/13/19 05:00 05:00 05:47 WBC 11.7 H RBC 2.97 L Hgb 8.8 L Hct 27.3 L MCV MCH MCHC RDW 16.1 H Plt Count Lymph % (Auto) 9.5 L [place] % (Auto) 9.9 H Eos % (Auto) Lymph # 1.1 L [place] # 1.2 H Eos # Seg Neutrophils % 78.6 H Seg Neuts % (Manual) Lymphocytes % (Manual) Monocytes % (Manual) Eosinophils % (Manual) Nucleated RBC % Seg Neutrophils # 9.2 H Seg Neutrophils # Man Lymphocytes # (Manual) Monocytes # (Manual) Eosinophils # (Manual) PT INR D-Dimer Heparin Anti-Xa Level POC ABG pH ABG pH POC ABG pCO2 POC ABG pO2 ABG pO2 ABG HCO3 ABG O2 Saturation ABG Base Excess ABG Hemoglobin Oxyhemoglobin Sodium Potassium 3.5 L Chloride Carbon Dioxide BUN 42 H Creatinine 4.6 H Glucose 106 H POC Glucose 107 H Lactic Acid Calcium 10.6 H D Ionized Calcium Phosphorus 5.90 H Magnesium Iron TIBC Ferritin Total Bilirubin Direct Bilirubin AST ALT Alkaline Phosphatase Total Creatine Kinase CK-MB (CK-2) Troponin T C-Reactive Protein Serum Total Protein Total Protein 5.8 L Albumin 2.5 L Nfpqw-4-Sprybgmli Ncxem-2-Czkyvpyou PEP Interpretation Triglycerides LDL Cholesterol Direct HDL Cholesterol Free T4 PTH Intact Urine WBC (Auto) Urine Creatinine Salicylates Acetaminophen Crossmatch 04/13/19 04/14/19 04/14/19 17:32 00:00 03:55 WBC RBC Hgb Hct MCV MCH MCHC RDW Plt Count Lymph % (Auto) [place] % (Auto) Eos % (Auto) Lymph # [place] # Eos # Seg Neutrophils % Seg Neuts % (Manual) Lymphocytes % (Manual) Monocytes % (Manual) Eosinophils % (Manual) Nucleated RBC % Seg Neutrophils # Seg Neutrophils # Man Lymphocytes # (Manual) Monocytes # (Manual) Eosinophils # (Manual) PT INR D-Dimer Heparin Anti-Xa Level POC ABG pH ABG pH POC ABG pCO2 POC ABG pO2 ABG pO2 ABG HCO3 ABG O2 Saturation ABG Base Excess ABG Hemoglobin Oxyhemoglobin Sodium Potassium 3.0 L Chloride Carbon Dioxide BUN 30 H Creatinine 3.1 H Glucose POC Glucose 112 H 120 H Lactic Acid Calcium 10.8 H Ionized Calcium Phosphorus Magnesium Iron TIBC Ferritin Total Bilirubin Direct Bilirubin AST ALT Alkaline Phosphatase Total Creatine Kinase CK-MB (CK-2) Troponin T C-Reactive Protein Serum Total Protein Total Protein Albumin Slkmh-5-Baymvuesb Awosk-6-Cmdjlheqq PEP Interpretation Triglycerides LDL Cholesterol Direct HDL Cholesterol Free T4 PTH Intact Urine WBC (Auto) Urine Creatinine Salicylates Acetaminophen Crossmatch 04/14/19 04/14/19 04/15/19 11:56 23:28 05:11 WBC 13.0 H RBC 2.93 L Hgb 8.6 L Hct 26.5 L MCV MCH MCHC RDW 16.5 H Plt Count Lymph % (Auto) 12.2 L [place] % (Auto) 9.1 H Eos % (Auto) Lymph # [place] # 1.2 H Eos # Seg Neutrophils % 77.6 H Seg Neuts % (Manual) Lymphocytes % (Manual) Monocytes % (Manual) Eosinophils % (Manual) Nucleated RBC % Seg Neutrophils # 10.1 H Seg Neutrophils # Man Lymphocytes # (Manual) Monocytes # (Manual) Eosinophils # (Manual) PT INR D-Dimer Heparin Anti-Xa Level POC ABG pH ABG pH POC ABG pCO2 POC ABG pO2 ABG pO2 ABG HCO3 ABG O2 Saturation ABG Base Excess ABG Hemoglobin Oxyhemoglobin Sodium Potassium Chloride Carbon Dioxide BUN Creatinine Glucose POC Glucose 109 H 112 H Lactic Acid Calcium Ionized Calcium Phosphorus Magnesium Iron TIBC Ferritin Total Bilirubin Direct Bilirubin AST ALT Alkaline Phosphatase Total Creatine Kinase CK-MB (CK-2) Troponin T C-Reactive Protein Serum Total Protein Total Protein Albumin Heeqs-3-Echlvdxnw Gmwtp-7-Hkrfpvluc PEP Interpretation Triglycerides LDL Cholesterol Direct HDL Cholesterol Free T4 PTH Intact Urine WBC (Auto) Urine Creatinine Salicylates Acetaminophen Crossmatch 04/15/19 04/15/19 04/15/19 05:11 05:31 18:03 WBC RBC Hgb Hct MCV MCH MCHC RDW Plt Count Lymph % (Auto) [place] % (Auto) Eos % (Auto) Lymph # [place] # Eos # Seg Neutrophils % Seg Neuts % (Manual) Lymphocytes % (Manual) Monocytes % (Manual) Eosinophils % (Manual) Nucleated RBC % Seg Neutrophils # Seg Neutrophils # Man Lymphocytes # (Manual) Monocytes # (Manual) Eosinophils # (Manual) PT INR D-Dimer Heparin Anti-Xa Level POC ABG pH ABG pH POC ABG pCO2 POC ABG pO2 ABG pO2 ABG HCO3 ABG O2 Saturation ABG Base Excess ABG Hemoglobin Oxyhemoglobin Sodium Potassium 3.2 L Chloride Carbon Dioxide BUN 44 H Creatinine 3.6 H Glucose 106 H POC Glucose 110 H 121 H Lactic Acid Calcium 12.0 H Ionized Calcium Phosphorus 5.00 H Magnesium Iron TIBC Ferritin Total Bilirubin Direct Bilirubin AST ALT Alkaline Phosphatase Total Creatine Kinase CK-MB (CK-2) Troponin T C-Reactive Protein Serum Total Protein Total Protein Albumin Klekv-4-Kycjdqrsw Mkhwx-9-Fiogncxcx PEP Interpretation Triglycerides LDL Cholesterol Direct HDL Cholesterol Free T4 PTH Intact Urine WBC (Auto) Urine Creatinine Salicylates Acetaminophen Crossmatch 04/16/19 04/16/19 04/17/19 05:07 05:07 04:15 WBC 12.6 H RBC 3.12 L Hgb 9.0 L Hct 28.2 L MCV MCH MCHC RDW 16.6 H Plt Count Lymph % (Auto) 10.3 L [place] % (Auto) 9.8 H Eos % (Auto) Lymph # [place] # 1.2 H Eos # Seg Neutrophils % 78.2 H Seg Neuts % (Manual) Lymphocytes % (Manual) Monocytes % (Manual) Eosinophils % (Manual) Nucleated RBC % Seg Neutrophils # 9.9 H Seg Neutrophils # Man Lymphocytes # (Manual) Monocytes # (Manual) Eosinophils # (Manual) PT INR D-Dimer Heparin Anti-Xa Level POC ABG pH ABG pH POC ABG pCO2 POC ABG pO2 ABG pO2 ABG HCO3 ABG O2 Saturation ABG Base Excess ABG Hemoglobin Oxyhemoglobin Sodium 147 H 150 H Potassium 3.5 L 3.1 L Chloride Carbon Dioxide 32 H BUN 54 H 65 H Creatinine 3.8 H 4.0 H Glucose 102 H 107 H POC Glucose Lactic Acid Calcium 11.7 H 12.0 H Ionized Calcium Phosphorus 5.40 H Magnesium Iron TIBC Ferritin Total Bilirubin Direct Bilirubin AST ALT Alkaline Phosphatase Total Creatine Kinase CK-MB (CK-2) Troponin T C-Reactive Protein 7.10 H Serum Total Protein Total Protein Albumin Gkmtt-4-Bccjiudfl Crfep-1-Kziqpgash PEP Interpretation Triglycerides LDL Cholesterol Direct HDL Cholesterol Free T4 PTH Intact Urine WBC (Auto) Urine Creatinine Salicylates Acetaminophen Crossmatch 04/17/19 04/17/19 04/17/19 04:15 06:05 12:49 WBC 15.8 H RBC 3.32 L Hgb 9.5 L Hct 29.9 L MCV MCH MCHC RDW 16.9 H Plt Count Lymph % (Auto) 12.6 L [place] % (Auto) 11.1 H Eos % (Auto) Lymph # [place] # 1.7 H Eos # Seg Neutrophils % 74.7 H Seg Neuts % (Manual) Lymphocytes % (Manual) Monocytes % (Manual) Eosinophils % (Manual) Nucleated RBC % Seg Neutrophils # 11.8 H Seg Neutrophils # Man Lymphocytes # (Manual) Monocytes # (Manual) Eosinophils # (Manual) PT INR D-Dimer Heparin Anti-Xa Level POC ABG pH ABG pH POC ABG pCO2 POC ABG pO2 ABG pO2 ABG HCO3 ABG O2 Saturation ABG Base Excess ABG Hemoglobin Oxyhemoglobin Sodium Potassium Chloride Carbon Dioxide BUN Creatinine Glucose POC Glucose 111 H 108 H Lactic Acid Calcium Ionized Calcium Phosphorus Magnesium Iron TIBC Ferritin Total Bilirubin Direct Bilirubin AST ALT Alkaline Phosphatase Total Creatine Kinase CK-MB (CK-2) Troponin T C-Reactive Protein Serum Total Protein Total Protein Albumin Wvozr-5-Vvqujhmxp Baylk-8-Rupuijqut PEP Interpretation Triglycerides LDL Cholesterol Direct HDL Cholesterol Free T4 PTH Intact Urine WBC (Auto) Urine Creatinine Salicylates Acetaminophen Crossmatch 04/18/19 04/18/19 04/18/19 00:23 04:41 04:41 WBC 19.4 H RBC 3.03 L Hgb 8.6 L Hct 27.5 L MCV MCH MCHC 31 L RDW 16.9 H Plt Count Lymph % (Auto) [place] % (Auto) Eos % (Auto) Lymph # [place] # Eos # Seg Neutrophils % Seg Neuts % (Manual) Lymphocytes % (Manual) Monocytes % (Manual) Eosinophils % (Manual) Nucleated RBC % Seg Neutrophils # Seg Neutrophils # Man Lymphocytes # (Manual) Monocytes # (Manual) Eosinophils # (Manual) PT INR D-Dimer Heparin Anti-Xa Level POC ABG pH ABG pH POC ABG pCO2 POC ABG pO2 ABG pO2 ABG HCO3 ABG O2 Saturation ABG Base Excess ABG Hemoglobin Oxyhemoglobin Sodium 152 H Potassium 3.0 L Chloride Carbon Dioxide BUN 80 H Creatinine 4.3 H Glucose 103 H POC Glucose 115 H Lactic Acid Calcium 11.4 H Ionized Calcium Phosphorus Magnesium Iron TIBC Ferritin Total Bilirubin Direct Bilirubin AST ALT Alkaline Phosphatase Total Creatine Kinase CK-MB (CK-2) Troponin T C-Reactive Protein Serum Total Protein Total Protein Albumin Fabab-6-Atywrnyxe Kjwqn-7-Lpufgrscj PEP Interpretation Triglycerides LDL Cholesterol Direct HDL Cholesterol Free T4 PTH Intact Urine WBC (Auto) Urine Creatinine Salicylates Acetaminophen Crossmatch 04/18/19 04/18/19 04/18/19 06:17 12:16 18:10 WBC RBC Hgb Hct MCV MCH MCHC RDW Plt Count Lymph % (Auto) [place] % (Auto) Eos % (Auto) Lymph # [place] # Eos # Seg Neutrophils % Seg Neuts % (Manual) Lymphocytes % (Manual) Monocytes % (Manual) Eosinophils % (Manual) Nucleated RBC % Seg Neutrophils # Seg Neutrophils # Man Lymphocytes # (Manual) Monocytes # (Manual) Eosinophils # (Manual) PT INR D-Dimer Heparin Anti-Xa Level POC ABG pH ABG pH POC ABG pCO2 POC ABG pO2 ABG pO2 ABG HCO3 ABG O2 Saturation ABG Base Excess ABG Hemoglobin Oxyhemoglobin Sodium Potassium Chloride Carbon Dioxide BUN Creatinine Glucose POC Glucose 124 H 119 H 111 H Lactic Acid Calcium Ionized Calcium Phosphorus Magnesium Iron TIBC Ferritin Total Bilirubin Direct Bilirubin AST ALT Alkaline Phosphatase Total Creatine Kinase CK-MB (CK-2) Troponin T C-Reactive Protein Serum Total Protein Total Protein Albumin Qzhpw-2-Mcanodprq Nsxal-1-Wqfnsqjgp PEP Interpretation Triglycerides LDL Cholesterol Direct HDL Cholesterol Free T4 PTH Intact Urine WBC (Auto) Urine Creatinine Salicylates Acetaminophen Crossmatch 04/19/19 04/19/19 04/20/19 03:49 05:27 09:09 WBC RBC Hgb Hct MCV MCH MCHC RDW Plt Count Lymph % (Auto) [place] % (Auto) Eos % (Auto) Lymph # [place] # Eos # Seg Neutrophils % Seg Neuts % (Manual) Lymphocytes % (Manual) Monocytes % (Manual) Eosinophils % (Manual) Nucleated RBC % Seg Neutrophils # Seg Neutrophils # Man Lymphocytes # (Manual) Monocytes # (Manual) Eosinophils # (Manual) PT INR D-Dimer Heparin Anti-Xa Level POC ABG pH ABG pH POC ABG pCO2 POC ABG pO2 ABG pO2 ABG HCO3 ABG O2 Saturation ABG Base Excess ABG Hemoglobin Oxyhemoglobin Sodium 147 H 150 H Potassium 3.3 L Chloride 108.9 H Carbon Dioxide BUN 45 H 70 H Creatinine 2.9 H 4.1 H Glucose 105 H POC Glucose 124 H Lactic Acid Calcium 10.6 H 11.6 H Ionized Calcium Phosphorus Magnesium Iron TIBC Ferritin Total Bilirubin Direct Bilirubin AST ALT Alkaline Phosphatase Total Creatine Kinase CK-MB (CK-2) Troponin T C-Reactive Protein Serum Total Protein Total Protein Albumin Ngwee-3-Chjpbxzpg Snxvi-0-Mikysugdk PEP Interpretation Triglycerides LDL Cholesterol Direct HDL Cholesterol Free T4 PTH Intact Urine WBC (Auto) Urine Creatinine Salicylates Acetaminophen Crossmatch 04/20/19 04/20/19 04/21/19 12:29 18:45 01:34 WBC RBC Hgb Hct MCV MCH MCHC RDW Plt Count Lymph % (Auto) [place] % (Auto) Eos % (Auto) Lymph # [place] # Eos # Seg Neutrophils % Seg Neuts % (Manual) Lymphocytes % (Manual) Monocytes % (Manual) Eosinophils % (Manual) Nucleated RBC % Seg Neutrophils # Seg Neutrophils # Man Lymphocytes # (Manual) Monocytes # (Manual) Eosinophils # (Manual) PT INR D-Dimer Heparin Anti-Xa Level POC ABG pH ABG pH POC ABG pCO2 POC ABG pO2 ABG pO2 ABG HCO3 ABG O2 Saturation ABG Base Excess ABG Hemoglobin Oxyhemoglobin Sodium Potassium Chloride Carbon Dioxide BUN 40 H Creatinine 2.6 H Glucose 104 H POC Glucose 131 H 134 H Lactic Acid Calcium 11.0 H Ionized Calcium Phosphorus Magnesium Iron TIBC Ferritin Total Bilirubin Direct Bilirubin AST ALT Alkaline Phosphatase Total Creatine Kinase CK-MB (CK-2) Troponin T C-Reactive Protein Serum Total Protein Total Protein Albumin Gtdqn-3-Obgxeeqgb Hgjlv-2-Dbfvpdsmj PEP Interpretation Triglycerides LDL Cholesterol Direct HDL Cholesterol Free T4 PTH Intact Urine WBC (Auto) Urine Creatinine Salicylates Acetaminophen Crossmatch 04/21/19 04/21/19 04/22/19 04:22 04:22 04:24 WBC 14.2 H 14.3 H RBC 3.02 L 3.57 L Hgb 8.7 L 10.1 L Hct 27.2 L 32.1 L MCV MCH MCHC RDW 16.7 H 17.2 H Plt Count Lymph % (Auto) [place] % (Auto) Eos % (Auto) Lymph # [place] # Eos # Seg Neutrophils % Seg Neuts % (Manual) Lymphocytes % (Manual) Monocytes % (Manual) Eosinophils % (Manual) Nucleated RBC % Seg Neutrophils # Seg Neutrophils # Man Lymphocytes # (Manual) Monocytes # (Manual) Eosinophils # (Manual) PT INR D-Dimer Heparin Anti-Xa Level POC ABG pH ABG pH POC ABG pCO2 POC ABG pO2 ABG pO2 ABG HCO3 ABG O2 Saturation ABG Base Excess ABG Hemoglobin Oxyhemoglobin Sodium Potassium Chloride Carbon Dioxide BUN Creatinine Glucose POC Glucose Lactic Acid Calcium Ionized Calcium Phosphorus Magnesium Iron TIBC Ferritin Total Bilirubin Direct Bilirubin AST ALT Alkaline Phosphatase Total Creatine Kinase CK-MB (CK-2) Troponin T C-Reactive Protein Serum Total Protein 5.7 L Total Protein Albumin 2.3 L Avgta-6-Xyslwdmxz 0.5 H Fkglp-4-Ghmoexvwt 1.0 H PEP Interpretation see below H Triglycerides LDL Cholesterol Direct HDL Cholesterol Free T4 PTH Intact Urine WBC (Auto) Urine Creatinine Salicylates Acetaminophen Crossmatch 04/22/19 04/22/19 04/22/19 04:24 06:37 11:57 WBC RBC Hgb Hct MCV MCH MCHC RDW Plt Count Lymph % (Auto) [place] % (Auto) Eos % (Auto) Lymph # [place] # Eos # Seg Neutrophils % Seg Neuts % (Manual) Lymphocytes % (Manual) Monocytes % (Manual) Eosinophils % (Manual) Nucleated RBC % Seg Neutrophils # Seg Neutrophils # Man Lymphocytes # (Manual) Monocytes # (Manual) Eosinophils # (Manual) PT INR D-Dimer Heparin Anti-Xa Level POC ABG pH ABG pH POC ABG pCO2 POC ABG pO2 ABG pO2 ABG HCO3 ABG O2 Saturation ABG Base Excess ABG Hemoglobin Oxyhemoglobin Sodium Potassium Chloride Carbon Dioxide BUN 54 H Creatinine 3.5 H Glucose POC Glucose 113 H 110 H Lactic Acid Calcium 11.4 H Ionized Calcium Phosphorus Magnesium Iron TIBC Ferritin Total Bilirubin Direct Bilirubin AST ALT Alkaline Phosphatase Total Creatine Kinase CK-MB (CK-2) Troponin T C-Reactive Protein Serum Total Protein Total Protein Albumin Bcuwt-2-Zebyemdce Fjyly-8-Kusmktwhn PEP Interpretation Triglycerides LDL Cholesterol Direct HDL Cholesterol Free T4 PTH Intact Urine WBC (Auto) Urine Creatinine Salicylates Acetaminophen Crossmatch 04/22/19 04/23/19 04/23/19 18:33 04:06 04:06 WBC 16.1 H RBC 3.36 L Hgb 9.8 L Hct 30.8 L MCV MCH MCHC RDW 17.7 H Plt Count Lymph % (Auto) 9.9 L [place] % (Auto) Eos % (Auto) Lymph # [place] # Eos # Seg Neutrophils % 84.2 H Seg Neuts % (Manual) Lymphocytes % (Manual) Monocytes % (Manual) Eosinophils % (Manual) Nucleated RBC % Seg Neutrophils # 13.6 H Seg Neutrophils # Man Lymphocytes # (Manual) Monocytes # (Manual) Eosinophils # (Manual) PT INR D-Dimer Heparin Anti-Xa Level POC ABG pH ABG pH POC ABG pCO2 POC ABG pO2 ABG pO2 ABG HCO3 ABG O2 Saturation ABG Base Excess ABG Hemoglobin Oxyhemoglobin Sodium Potassium Chloride Carbon Dioxide BUN 59 H Creatinine 3.8 H Glucose POC Glucose 120 H Lactic Acid Calcium 12.3 H* Ionized Calcium Phosphorus 5.70 H Magnesium Iron TIBC Ferritin Total Bilirubin Direct Bilirubin AST ALT Alkaline Phosphatase Total Creatine Kinase CK-MB (CK-2) Troponin T C-Reactive Protein Serum Total Protein Total Protein Albumin 3.2 L Hhrhm-0-Sfovwchgb Xhmpy-7-Ftuavzxsr PEP Interpretation Triglycerides LDL Cholesterol Direct HDL Cholesterol Free T4 PTH Intact Urine WBC (Auto) Urine Creatinine Salicylates Acetaminophen Crossmatch 04/23/19 04/24/19 04/24/19 18:06 04:12 04:12 WBC 18.0 H RBC 3.46 L Hgb 9.8 L Hct 31.2 L MCV MCH MCHC 31 L RDW 17.5 H Plt Count Lymph % (Auto) 11.1 L [place] % (Auto) Eos % (Auto) Lymph # [place] # Eos # Seg Neutrophils % 81.9 H Seg Neuts % (Manual) Lymphocytes % (Manual) Monocytes % (Manual) Eosinophils % (Manual) Nucleated RBC % Seg Neutrophils # 14.7 H Seg Neutrophils # Man Lymphocytes # (Manual) Monocytes # (Manual) Eosinophils # (Manual) PT INR D-Dimer Heparin Anti-Xa Level POC ABG pH ABG pH POC ABG pCO2 POC ABG pO2 ABG pO2 ABG HCO3 ABG O2 Saturation ABG Base Excess ABG Hemoglobin Oxyhemoglobin Sodium Potassium Chloride Carbon Dioxide BUN 56 H Creatinine 3.6 H Glucose POC Glucose 124 H Lactic Acid Calcium 12.6 H* Ionized Calcium Phosphorus Magnesium Iron TIBC Ferritin Total Bilirubin Direct Bilirubin AST ALT Alkaline Phosphatase Total Creatine Kinase CK-MB (CK-2) Troponin T C-Reactive Protein Serum Total Protein Total Protein Albumin 3.2 L Fpqsq-9-Xczbhhrlr Qruaz-4-Vbcyzgytx PEP Interpretation Triglycerides LDL Cholesterol Direct HDL Cholesterol Free T4 PTH Intact Urine WBC (Auto) Urine Creatinine Salicylates Acetaminophen Crossmatch 04/24/19 04/24/19 04/25/19 06:21 11:47 05:58 WBC 18.0 H RBC 2.98 L Hgb 8.3 L Hct 26.5 L MCV MCH MCHC 31 L RDW 17.9 H Plt Count Lymph % (Auto) 10.1 L [place] % (Auto) Eos % (Auto) Lymph # [place] # 0.9 H Eos # Seg Neutrophils % 82.8 H Seg Neuts % (Manual) Lymphocytes % (Manual) Monocytes % (Manual) Eosinophils % (Manual) Nucleated RBC % Seg Neutrophils # 15.0 H Seg Neutrophils # Man Lymphocytes # (Manual) Monocytes # (Manual) Eosinophils # (Manual) PT INR D-Dimer Heparin Anti-Xa Level POC ABG pH ABG pH POC ABG pCO2 POC ABG pO2 ABG pO2 ABG HCO3 ABG O2 Saturation ABG Base Excess ABG Hemoglobin Oxyhemoglobin Sodium Potassium Chloride Carbon Dioxide BUN Creatinine Glucose POC Glucose 132 H 106 H Lactic Acid Calcium Ionized Calcium Phosphorus Magnesium Iron TIBC Ferritin Total Bilirubin Direct Bilirubin AST ALT Alkaline Phosphatase Total Creatine Kinase CK-MB (CK-2) Troponin T C-Reactive Protein Serum Total Protein Total Protein Albumin Wvvvb-0-Rdfhlfcyr Uugao-7-Czmduizlv PEP Interpretation Triglycerides LDL Cholesterol Direct HDL Cholesterol Free T4 PTH Intact Urine WBC (Auto) Urine Creatinine Salicylates Acetaminophen Crossmatch 04/25/19 04/26/19 04/26/19 05:58 05:57 06:08 WBC RBC Hgb Hct MCV MCH MCHC RDW Plt Count Lymph % (Auto) [place] % (Auto) Eos % (Auto) Lymph # [place] # Eos # Seg Neutrophils % Seg Neuts % (Manual) Lymphocytes % (Manual) Monocytes % (Manual) Eosinophils % (Manual) Nucleated RBC % Seg Neutrophils # Seg Neutrophils # Man Lymphocytes # (Manual) Monocytes # (Manual) Eosinophils # (Manual) PT INR D-Dimer Heparin Anti-Xa Level POC ABG pH ABG pH POC ABG pCO2 POC ABG pO2 ABG pO2 ABG HCO3 ABG O2 Saturation ABG Base Excess ABG Hemoglobin Oxyhemoglobin Sodium Potassium 3.2 L Chloride Carbon Dioxide BUN 52 H 48 H Creatinine 3.2 H 2.9 H Glucose 108 H 112 H POC Glucose 109 H Lactic Acid Calcium 11.4 H 12.5 H* Ionized Calcium Phosphorus 5.90 H Magnesium Iron TIBC Ferritin Total Bilirubin Direct Bilirubin AST ALT Alkaline Phosphatase Total Creatine Kinase CK-MB (CK-2) Troponin T C-Reactive Protein Serum Total Protein Total Protein Albumin 3.0 L Mujcp-8-Vmbglhtiy Brass-6-Wiaayztnv PEP Interpretation Triglycerides LDL Cholesterol Direct HDL Cholesterol Free T4 PTH Intact Urine WBC (Auto) Urine Creatinine Salicylates Acetaminophen Crossmatch 04/26/19 04/26/19 04/27/19 07:22 13:39 05:05 WBC 11.9 H RBC 3.01 L Hgb 8.6 L Hct 26.3 L MCV MCH MCHC RDW 17.6 H Plt Count Lymph % (Auto) 11.9 L [place] % (Auto) Eos % (Auto) Lymph # [place] # Eos # Seg Neutrophils % 78.3 H Seg Neuts % (Manual) Lymphocytes % (Manual) Monocytes % (Manual) Eosinophils % (Manual) Nucleated RBC % Seg Neutrophils # 9.4 H Seg Neutrophils # Man Lymphocytes # (Manual) Monocytes # (Manual) Eosinophils # (Manual) PT INR D-Dimer Heparin Anti-Xa Level POC ABG pH ABG pH POC ABG pCO2 POC ABG pO2 ABG pO2 ABG HCO3 ABG O2 Saturation ABG Base Excess ABG Hemoglobin Oxyhemoglobin Sodium Potassium Chloride Carbon Dioxide BUN 46 H Creatinine 2.8 H Glucose POC Glucose Lactic Acid Calcium > 13.0 H* 12.2 H* Ionized Calcium Phosphorus Magnesium Iron TIBC Ferritin Total Bilirubin Direct Bilirubin AST ALT Alkaline Phosphatase Total Creatine Kinase CK-MB (CK-2) Troponin T C-Reactive Protein Serum Total Protein Total Protein Albumin Xffzw-4-Pnhwcglxt Lwrxm-7-Vcnmmfyvh PEP Interpretation Triglycerides LDL Cholesterol Direct HDL Cholesterol Free T4 PTH Intact Urine WBC (Auto) Urine Creatinine Salicylates Acetaminophen Crossmatch 04/27/19 04/28/19 04/29/19 05:05 05:17 14:14 WBC RBC Hgb Hct MCV MCH MCHC RDW Plt Count Lymph % (Auto) [place] % (Auto) Eos % (Auto) Lymph # [place] # Eos # Seg Neutrophils % Seg Neuts % (Manual) Lymphocytes % (Manual) Monocytes % (Manual) Eosinophils % (Manual) Nucleated RBC % Seg Neutrophils # Seg Neutrophils # Man Lymphocytes # (Manual) Monocytes # (Manual) Eosinophils # (Manual) PT INR D-Dimer Heparin Anti-Xa Level POC ABG pH ABG pH POC ABG pCO2 POC ABG pO2 ABG pO2 ABG HCO3 ABG O2 Saturation ABG Base Excess ABG Hemoglobin Oxyhemoglobin Sodium 136 L Potassium 3.2 L 3.4 L Chloride Carbon Dioxide BUN 40 H 34 H 33 H Creatinine 2.5 H 2.0 H 1.9 H Glucose 113 H 107 H POC Glucose Lactic Acid Calcium 12.3 H* 12.1 H* 11.5 H Ionized Calcium Phosphorus Magnesium Iron TIBC Ferritin Total Bilirubin Direct Bilirubin AST ALT Alkaline Phosphatase Total Creatine Kinase CK-MB (CK-2) Troponin T C-Reactive Protein Serum Total Protein Total Protein 6.2 L Albumin 2.8 L Gqfzp-9-Crxlytvrn Ncrev-3-Piktpppjz PEP Interpretation Triglycerides LDL Cholesterol Direct HDL Cholesterol Free T4 PTH Intact Urine WBC (Auto) Urine Creatinine Salicylates Acetaminophen Crossmatch 04/29/19 04/29/19 04/30/19 14:14 14:14 06:47 WBC RBC Hgb Hct MCV MCH MCHC RDW Plt Count Lymph % (Auto) [place] % (Auto) Eos % (Auto) Lymph # [place] # Eos # Seg Neutrophils % Seg Neuts % (Manual) Lymphocytes % (Manual) Monocytes % (Manual) Eosinophils % (Manual) Nucleated RBC % Seg Neutrophils # Seg Neutrophils # Man Lymphocytes # (Manual) Monocytes # (Manual) Eosinophils # (Manual) PT INR D-Dimer Heparin Anti-Xa Level POC ABG pH ABG pH POC ABG pCO2 POC ABG pO2 ABG pO2 ABG HCO3 ABG O2 Saturation ABG Base Excess ABG Hemoglobin Oxyhemoglobin Sodium Potassium 3.2 L Chloride Carbon Dioxide 21 L BUN 26 H Creatinine 1.8 H Glucose POC Glucose Lactic Acid Calcium 10.8 H Ionized Calcium 7.2 H* Phosphorus Magnesium Iron TIBC Ferritin Total Bilirubin Direct Bilirubin AST ALT Alkaline Phosphatase Total Creatine Kinase CK-MB (CK-2) Troponin T C-Reactive Protein Serum Total Protein Total Protein Albumin Kaubw-6-Kejirfwgh Rhicf-4-Fbgedydll PEP Interpretation Triglycerides LDL Cholesterol Direct HDL Cholesterol Free T4 PTH Intact 8.83 L Urine WBC (Auto) Urine Creatinine Salicylates Acetaminophen Crossmatch 04/30/19 05/01/19 05/01/19 12:17 06:52 06:52 WBC 15.4 H RBC 3.01 L Hgb 8.4 L Hct 26.2 L MCV MCH MCHC RDW 17.0 H Plt Count Lymph % (Auto) 8.4 L [place] % (Auto) 8.9 H Eos % (Auto) Lymph # [place] # 1.4 H Eos # 0.5 H Seg Neutrophils % 78.7 H Seg Neuts % (Manual) Lymphocytes % (Manual) Monocytes % (Manual) Eosinophils % (Manual) Nucleated RBC % Seg Neutrophils # 12.1 H Seg Neutrophils # Man Lymphocytes # (Manual) Monocytes # (Manual) Eosinophils # (Manual) PT INR D-Dimer Heparin Anti-Xa Level POC ABG pH ABG pH POC ABG pCO2 POC ABG pO2 ABG pO2 ABG HCO3 ABG O2 Saturation ABG Base Excess ABG Hemoglobin Oxyhemoglobin Sodium Potassium 3.0 L Chloride Carbon Dioxide BUN 22 H Creatinine Glucose POC Glucose 106 H Lactic Acid Calcium 11.2 H Ionized Calcium Phosphorus Magnesium Iron TIBC Ferritin Total Bilirubin Direct Bilirubin AST ALT Alkaline Phosphatase Total Creatine Kinase CK-MB (CK-2) Troponin T C-Reactive Protein Serum Total Protein Total Protein Albumin 3.0 L Etowl-4-Zrnzyypky Sutsz-4-Vmiibugax PEP Interpretation Triglycerides LDL Cholesterol Direct HDL Cholesterol Free T4 PTH Intact Urine WBC (Auto) Urine Creatinine Salicylates Acetaminophen Crossmatch 05/01/19 05/01/19 05/02/19 06:52 18:40 05:32 WBC RBC Hgb Hct MCV MCH MCHC RDW Plt Count Lymph % (Auto) [place] % (Auto) Eos % (Auto) Lymph # [place] # Eos # Seg Neutrophils % Seg Neuts % (Manual) Lymphocytes % (Manual) Monocytes % (Manual) Eosinophils % (Manual) Nucleated RBC % Seg Neutrophils # Seg Neutrophils # Man Lymphocytes # (Manual) Monocytes # (Manual) Eosinophils # (Manual) PT INR D-Dimer Heparin Anti-Xa Level POC ABG pH ABG pH POC ABG pCO2 POC ABG pO2 ABG pO2 ABG HCO3 ABG O2 Saturation ABG Base Excess ABG Hemoglobin Oxyhemoglobin Sodium Potassium Chloride Carbon Dioxide BUN Creatinine Glucose POC Glucose 169 H 109 H Lactic Acid Calcium Ionized Calcium Phosphorus Magnesium Iron TIBC Ferritin Total Bilirubin Direct Bilirubin AST ALT Alkaline Phosphatase Total Creatine Kinase CK-MB (CK-2) Troponin T C-Reactive Protein Serum Total Protein 5.7 L Total Protein Albumin 2.5 L Acfnz-6-Zoquaazoc 0.5 H Fgpts-7-Wuzdvpqam PEP Interpretation see below H Triglycerides LDL Cholesterol Direct HDL Cholesterol Free T4 PTH Intact Urine WBC (Auto) Urine Creatinine Salicylates Acetaminophen Crossmatch 05/02/19 05/02/19 05/02/19 05:57 05:57 11:43 WBC 14.2 H RBC 2.96 L Hgb 8.3 L Hct 26.0 L MCV MCH MCHC RDW 16.8 H Plt Count Lymph % (Auto) [place] % (Auto) Eos % (Auto) Lymph # [place] # Eos # Seg Neutrophils % Seg Neuts % (Manual) Lymphocytes % (Manual) Monocytes % (Manual) Eosinophils % (Manual) Nucleated RBC % Seg Neutrophils # Seg Neutrophils # Man Lymphocytes # (Manual) Monocytes # (Manual) Eosinophils # (Manual) PT INR D-Dimer Heparin Anti-Xa Level POC ABG pH ABG pH POC ABG pCO2 POC ABG pO2 ABG pO2 ABG HCO3 ABG O2 Saturation ABG Base Excess ABG Hemoglobin Oxyhemoglobin Sodium 136 L Potassium 3.5 L Chloride Carbon Dioxide BUN 21 H Creatinine Glucose POC Glucose 108 H Lactic Acid Calcium 11.1 H Ionized Calcium Phosphorus Magnesium Iron TIBC Ferritin Total Bilirubin Direct Bilirubin AST ALT Alkaline Phosphatase Total Creatine Kinase CK-MB (CK-2) Troponin T C-Reactive Protein Serum Total Protein Total Protein Albumin Pjwmk-4-Veomdehwi Usudf-4-Bfykicvqu PEP Interpretation Triglycerides LDL Cholesterol Direct HDL Cholesterol Free T4 PTH Intact Urine WBC (Auto) Urine Creatinine Salicylates Acetaminophen Crossmatch 05/03/19 05/03/19 05/04/19 05:37 05:37 06:49 WBC 12.7 H 11.1 H RBC 3.01 L 3.07 L Hgb 8.3 L 8.6 L Hct 26.1 L 26.6 L MCV MCH MCHC RDW 16.9 H 17.3 H Plt Count Lymph % (Auto) [place] % (Auto) 9.0 H Eos % (Auto) 4.9 H Lymph # [place] # 1.0 H Eos # 0.5 H Seg Neutrophils % Seg Neuts % (Manual) Lymphocytes % (Manual) Monocytes % (Manual) Eosinophils % (Manual) Nucleated RBC % Seg Neutrophils # 7.8 H Seg Neutrophils # Man Lymphocytes # (Manual) Monocytes # (Manual) Eosinophils # (Manual) PT INR D-Dimer Heparin Anti-Xa Level POC ABG pH ABG pH POC ABG pCO2 POC ABG pO2 ABG pO2 ABG HCO3 ABG O2 Saturation ABG Base Excess ABG Hemoglobin Oxyhemoglobin Sodium 135 L Potassium 3.3 L Chloride Carbon Dioxide BUN Creatinine Glucose POC Glucose Lactic Acid Calcium 10.9 H Ionized Calcium Phosphorus Magnesium 1.50 L Iron TIBC Ferritin Total Bilirubin Direct Bilirubin AST ALT Alkaline Phosphatase Total Creatine Kinase CK-MB (CK-2) Troponin T C-Reactive Protein Serum Total Protein Total Protein Albumin Mnrzk-8-Eirvxndci Nuzrh-0-Yiscedizw PEP Interpretation Triglycerides LDL Cholesterol Direct HDL Cholesterol Free T4 PTH Intact Urine WBC (Auto) Urine Creatinine Salicylates Acetaminophen Crossmatch 05/04/19 05/04/19 05/04/19 06:49 06:49 11:58 WBC RBC Hgb Hct MCV MCH MCHC RDW Plt Count Lymph % (Auto) [place] % (Auto) Eos % (Auto) Lymph # [place] # Eos # Seg Neutrophils % Seg Neuts % (Manual) Lymphocytes % (Manual) Monocytes % (Manual) Eosinophils % (Manual) Nucleated RBC % Seg Neutrophils # Seg Neutrophils # Man Lymphocytes # (Manual) Monocytes # (Manual) Eosinophils # (Manual) PT 15.5 H INR 1.24 H D-Dimer Heparin Anti-Xa Level POC ABG pH ABG pH POC ABG pCO2 POC ABG pO2 ABG pO2 ABG HCO3 ABG O2 Saturation ABG Base Excess ABG Hemoglobin Oxyhemoglobin Sodium Potassium Chloride Carbon Dioxide 19 L BUN Creatinine Glucose POC Glucose 111 H Lactic Acid Calcium 10.7 H Ionized Calcium Phosphorus Magnesium Iron TIBC Ferritin Total Bilirubin Direct Bilirubin AST ALT Alkaline Phosphatase Total Creatine Kinase CK-MB (CK-2) Troponin T C-Reactive Protein Serum Total Protein Total Protein Albumin Czasg-8-Zauaqizuk Oqvie-3-Rdzibkhdw PEP Interpretation Triglycerides LDL Cholesterol Direct HDL Cholesterol Free T4 PTH Intact Urine WBC (Auto) Urine Creatinine Salicylates Acetaminophen Crossmatch 05/05/19 05/05/19 05/07/19 06:14 06:14 05:55 WBC 11.5 H 12.0 H RBC 3.08 L 3.33 L Hgb 8.5 L 9.2 L Hct 26.5 L 28.5 L MCV MCH MCHC RDW 17.1 H 17.6 H Plt Count Lymph % (Auto) [place] % (Auto) Eos % (Auto) 8.2 H Lymph # [place] # Eos # 1.0 H Seg Neutrophils % Seg Neuts % (Manual) Lymphocytes % (Manual) Monocytes % (Manual) Eosinophils % (Manual) Nucleated RBC % Seg Neutrophils # 8.2 H Seg Neutrophils # Man Lymphocytes # (Manual) Monocytes # (Manual) Eosinophils # (Manual) PT INR D-Dimer Heparin Anti-Xa Level POC ABG pH ABG pH POC ABG pCO2 POC ABG pO2 ABG pO2 ABG HCO3 ABG O2 Saturation ABG Base Excess ABG Hemoglobin Oxyhemoglobin Sodium 136 L Potassium Chloride Carbon Dioxide 21 L BUN Creatinine Glucose POC Glucose Lactic Acid Calcium 10.3 H Ionized Calcium Phosphorus Magnesium Iron TIBC Ferritin Total Bilirubin Direct Bilirubin AST ALT Alkaline Phosphatase Total Creatine Kinase CK-MB (CK-2) Troponin T C-Reactive Protein Serum Total Protein Total Protein Albumin Zutbp-5-Pblfcrhja Klvgm-0-Jbjwosspy PEP Interpretation Triglycerides LDL Cholesterol Direct HDL Cholesterol Free T4 PTH Intact Urine WBC (Auto) Urine Creatinine Salicylates Acetaminophen Crossmatch 05/07/19 05/08/19 05/08/19 05:55 07:27 07:27 WBC 12.5 H RBC 3.50 L Hgb 9.4 L Hct 30.4 L MCV MCH 27 L MCHC 31 L RDW 17.2 H Plt Count Lymph % (Auto) [place] % (Auto) Eos % (Auto) 10.3 H Lymph # [place] # Eos # 1.3 H Seg Neutrophils % Seg Neuts % (Manual) Lymphocytes % (Manual) Monocytes % (Manual) Eosinophils % (Manual) Nucleated RBC % Seg Neutrophils # 8.7 H Seg Neutrophils # Man Lymphocytes # (Manual) Monocytes # (Manual) Eosinophils # (Manual) PT INR D-Dimer Heparin Anti-Xa Level POC ABG pH ABG pH POC ABG pCO2 POC ABG pO2 ABG pO2 ABG HCO3 ABG O2 Saturation ABG Base Excess ABG Hemoglobin Oxyhemoglobin Sodium Potassium 3.5 L Chloride Carbon Dioxide 20 L 20 L BUN Creatinine Glucose POC Glucose Lactic Acid Calcium 10.7 H 10.7 H Ionized Calcium Phosphorus Magnesium Iron TIBC Ferritin Total Bilirubin Direct Bilirubin AST ALT Alkaline Phosphatase Total Creatine Kinase CK-MB (CK-2) Troponin T C-Reactive Protein Serum Total Protein Total Protein Albumin 3.2 L 3.4 L Repgw-7-Ardkbdlue Cbuza-2-Ovburfnek PEP Interpretation Triglycerides LDL Cholesterol Direct HDL Cholesterol Free T4 PTH Intact Urine WBC (Auto) Urine Creatinine Salicylates Acetaminophen Crossmatch 05/09/19 05/09/19 05/10/19 05:41 05:41 06:42 WBC 11.7 H RBC 3.27 L Hgb 9.2 L Hct 27.9 L MCV MCH MCHC RDW 17.8 H Plt Count Lymph % (Auto) [place] % (Auto) Eos % (Auto) 14.3 H Lymph # [place] # Eos # 1.7 H Seg Neutrophils % Seg Neuts % (Manual) Lymphocytes % (Manual) Monocytes % (Manual) Eosinophils % (Manual) Nucleated RBC % Seg Neutrophils # Seg Neutrophils # Man Lymphocytes # (Manual) Monocytes # (Manual) Eosinophils # (Manual) PT INR 1.17 H D-Dimer Heparin Anti-Xa Level POC ABG pH ABG pH POC ABG pCO2 POC ABG pO2 ABG pO2 ABG HCO3 ABG O2 Saturation ABG Base Excess ABG Hemoglobin Oxyhemoglobin Sodium 136 L Potassium Chloride Carbon Dioxide 21 L BUN Creatinine Glucose POC Glucose Lactic Acid Calcium 10.6 H Ionized Calcium Phosphorus Magnesium Iron TIBC Ferritin Total Bilirubin Direct Bilirubin AST ALT Alkaline Phosphatase Total Creatine Kinase CK-MB (CK-2) Troponin T C-Reactive Protein Serum Total Protein Total Protein Albumin 3.3 L Epslq-6-Ahshpbllb Blvtw-6-Zmuqmzzds PEP Interpretation Triglycerides LDL Cholesterol Direct HDL Cholesterol Free T4 PTH Intact Urine WBC (Auto) Urine Creatinine Salicylates Acetaminophen Crossmatch 05/10/19 05/11/19 05/13/19 06:42 04:40 08:32 WBC 11.8 H RBC 3.48 L Hgb 9.5 L Hct 30.0 L MCV MCH 27 L MCHC RDW 18.0 H Plt Count Lymph % (Auto) [place] % (Auto) Eos % (Auto) Lymph # [place] # Eos # Seg Neutrophils % Seg Neuts % (Manual) 73.0 H Lymphocytes % (Manual) 11.0 L Monocytes % (Manual) Eosinophils % (Manual) 12.0 H Nucleated RBC % Seg Neutrophils # Seg Neutrophils # Man 8.6 H Lymphocytes # (Manual) Monocytes # (Manual) Eosinophils # (Manual) 1.4 H PT INR D-Dimer Heparin Anti-Xa Level POC ABG pH ABG pH POC ABG pCO2 POC ABG pO2 ABG pO2 ABG HCO3 ABG O2 Saturation ABG Base Excess ABG Hemoglobin Oxyhemoglobin Sodium Potassium Chloride Carbon Dioxide 21 L 20 L BUN Creatinine Glucose POC Glucose Lactic Acid Calcium Ionized Calcium Phosphorus Magnesium Iron TIBC Ferritin Total Bilirubin Direct Bilirubin AST ALT Alkaline Phosphatase Total Creatine Kinase CK-MB (CK-2) Troponin T C-Reactive Protein Serum Total Protein Total Protein Albumin Dugyn-4-Ncwkupqyk Yfpbc-9-Isaoeuqbz PEP Interpretation Triglycerides LDL Cholesterol Direct HDL Cholesterol Free T4 PTH Intact Urine WBC (Auto) Urine Creatinine Salicylates Acetaminophen Crossmatch 05/13/19 05/14/19 08:32 08:12 WBC RBC Hgb Hct MCV MCH MCHC RDW Plt Count Lymph % (Auto) [place] % (Auto) Eos % (Auto) Lymph # [place] # Eos # Seg Neutrophils % Seg Neuts % (Manual) Lymphocytes % (Manual) Monocytes % (Manual) Eosinophils % (Manual) Nucleated RBC % Seg Neutrophils # Seg Neutrophils # Man Lymphocytes # (Manual) Monocytes # (Manual) Eosinophils # (Manual) PT INR D-Dimer Heparin Anti-Xa Level POC ABG pH ABG pH POC ABG pCO2 POC ABG pO2 ABG pO2 ABG HCO3 ABG O2 Saturation ABG Base Excess ABG Hemoglobin Oxyhemoglobin Sodium Potassium Chloride Carbon Dioxide 17 L 18 L BUN Creatinine Glucose 73 L POC Glucose Lactic Acid Calcium Ionized Calcium Phosphorus Magnesium 1.60 L Iron TIBC Ferritin Total Bilirubin Direct Bilirubin AST ALT Alkaline Phosphatase Total Creatine Kinase CK-MB (CK-2) Troponin T C-Reactive Protein Serum Total Protein Total Protein Albumin 3.3 L Tmhfy-4-Vyelnmpbo Dphyb-9-Igfncfnvn PEP Interpretation Triglycerides LDL Cholesterol Direct HDL Cholesterol Free T4 PTH Intact Urine WBC (Auto) Urine Creatinine Salicylates Acetaminophen Crossmatch Allied health notes reviewed: nursing
[2019-05-17] MEDS: METOPROLOL SUCCINATE XL 50 MG TAB PO SCH (11:00)
[2019-05-17] MEDS: PANTOPRAZOLE 40 MG TAB PO SCH ×2 (11:00→21:17)
[2019-05-17] MEDS: GABAPENTIN 300 MG CAP PO SCH ×2 (15:41→21:17)
--- NOTE | 2019-05-17 17:54 | Progress Note ---
Assessment and Plan Peripheral neuropathy. Neurology following. Patient will need EMG/MCV to rule out axonal versus demyelinating disease. Workup can be done as an outpatient. Bilateral lower extremity DVTs. Patient will be scheduled for placement of IVC filter. 3 months after discharge, the patient will need to be scheduled for IVC filter removal with repeat ultrasound at that time to evaluate the patient's bilateral lower extremity DVTs. - Acute hypoxic respiratory failure. Was intubated, but now extubated. Now on Room air. Continue BiPAP as clinically indicated. - Atrial fibrillation. Resolved. Continue Metoprolol. Cardiology following. No recurrence of AFib or VT noted for several weeks since resolution of multiple metabolic derangements and thus no plans for initiation of systemic AC or AICD implantation at this time. - Abnormal Lexiscan stress with ejection fraction of 45% S/p LHC this AM which showed normal coronaries, normal EF. - Acute blood loss anemia. Patient with GI bleed secondary to peptic ulcer disease. EGD completed per GI. Continue PRBCs as needed. - GI bleed/peptic ulcer disease. Continue PPI. Transfuse PRBCs as needed. - Sepsis/septic shock. Resolved. Continue to monitor off antibiotics - Ischemic hepatitis/shock liver. Resolved. Viral hepatitis panel negative. - Acute kidney injury. Resolved. Patient's last hemodialysis 04/20/19. Continue to monitor BMP. Avoid nephrotoxic agents. - Toxic metabolic encephalopathy. Resolved. - Swelling both upper ext L>R Doppler US : no DVT LUE - Hypokalemia. Replete potassium as needed. - Thrombocytopenia. Etiology likely secondary to sepsis. Resolved. - Rhabdomyolysis. CK normalized. Full code status Disposition. Awaiting for arrangements for SNF in [place] Subjective Date of service: 05/17/19 Principal diagnosis: Septic Shock; Ac. hypoxemic resp failure; Renzo. PNA; Rhabdomyolysis; RUBEN Interval history: No interval change Not able to walk Objective - Constitutional Vitals: Vital Signs - 12hr 05/17/19 05/17/19 05/17/19 05:58 11:00 11:38 Temperature 97.9 F Pulse Rate 81 81 82 Respiratory 18 20 Rate Blood Pressure 120/76 118/81 O2 Sat by Pulse 99 100 Oximetry General appearance: Present: no acute distress, well-nourished - EENT Eyes: PERRL, EOM intact ENT: hearing intact, clear oral mucosa Ears: bilateral: normal - Neck Neck: supple, normal ROM - Respiratory Respiratory effort: normal Respiratory: bilateral: CTA - Breasts Breasts: normal - Cardiovascular Rhythm: regular Heart Sounds: Present: S1 & S2. Absent: gallop, rub Extremities: pulses intact, No edema, normal color, Full ROM - Gastrointestinal General gastrointestinal: Present: soft, non-tender, non-distended, normal bowel sounds - Genitourinary Male genitourinary: normal - Integumentary Integumentary: clear, warm, dry - Musculoskeletal Musculoskeletal: 1, strength equal bilaterally - Neurologic Neurologic: moves all extremities - Psychiatric Psychiatric: memory intact, appropriate mood/affect, intact judgment & insight - Labs CBC & Chem 7: 05/13/19 08:32 05/14/19 08:12
[2019-05-18] MEDS: GABAPENTIN 300 MG CAP PO SCH ×3 (05:50→21:04)
--- NOTE | 2019-05-18 08:42 | Progress Note ---
Assessment and Plan Assessment and plan: Peripheral neuropathy. Neurology following. Patient will need EMG/MCV to rule out axonal versus demyelinating disease. Workup can be done as an outpatient. Bilateral lower extremity DVTs. Patient will be scheduled for placement of IVC filter. 3 months after discharge, the patient will need to be scheduled for IVC filter removal with repeat ultrasound at that time to evaluate the patient's bilateral lower extremity DVTs. - Acute hypoxic respiratory failure. Was intubated, but now extubated. Now on Room air. Continue BiPAP as clinically indicated. - Atrial fibrillation. Resolved. Continue Metoprolol. Cardiology following. No recurrence of AFib or VT noted for several weeks since resolution of multiple metabolic derangements and thus no plans for initiation of systemic AC or AICD implantation at this time. - Abnormal Lexiscan stress with ejection fraction of 45% S/p LHC this AM which showed normal coronaries, normal EF. - Acute blood loss anemia. Patient with GI bleed secondary to peptic ulcer disease. EGD completed per GI. Continue PRBCs as needed. - GI bleed/peptic ulcer disease. Continue PPI. Transfuse PRBCs as needed. - Sepsis/septic shock. Resolved. Continue to monitor off antibiotics - Ischemic hepatitis/shock liver. Resolved. Viral hepatitis panel negative. - Acute kidney injury. Resolved. Patient's last hemodialysis 04/20/19. Continue to monitor BMP. Avoid nephrotoxic agents. - Toxic metabolic encephalopathy. Resolved. - Swelling both upper ext L>R Doppler US : no DVT LUE - Hypokalemia. Replete potassium as needed. - Thrombocytopenia. Etiology likely secondary to sepsis. Resolved. - Rhabdomyolysis. CK normalized. Full code status Disposition. Awaiting for arrangements for SNF in [place] History Interval history: Patient seen and examined medical records reviewed Patient complains of lower extremity weakness Patient is awaiting transfer to [place] Vital signs noted Hospitalist Physical - Constitutional Vitals: Temp Pulse Resp BP Pulse Ox 97.6 F 81 17 114/76 97 05/18/19 04:57 05/18/19 04:57 05/18/19 04:57 05/18/19 04:57 05/18/19 04:57 General appearance: Present: no acute distress, well-nourished - EENT Eyes: Present: PERRL, EOM intact - Neck Neck: Present: supple, normal ROM - Respiratory Respiratory effort: normal Respiratory: bilateral: diminished, negative: rales, rhonchi, wheezing - Cardiovascular Rhythm: regular Heart Sounds: Present: S1 & S2 - Extremities Extremities: abnormal (bilateral lower extremity weakness) - Abdominal General gastrointestinal: soft, non-tender, non-distended, normal bowel sounds - Integumentary Integumentary: Present: clear, warm - Psychiatric Psychiatric: appropriate mood/affect, cooperative - Neurologic Neurologic: other (residual weakness) Results - Labs CBC & Chem 7: 05/13/19 08:32 05/19/19 06:47 Labs: Laboratory Last Values WBC 11.8 K/mm3 (4.5-11.0) H 05/13/19 08:32 RBC 3.48 M/mm3 (3.65-5.03) L 05/13/19 08:32 Hgb 9.5 gm/dl (11.8-15.2) L 05/13/19 08:32 Hct 30.0 % (35.5-45.6) L 05/13/19 08:32 MCV 86 fl (84-94) 05/13/19 08:32 MCH 27 pg (28-32) L 05/13/19 08:32 MCHC 32 % (32-34) 05/13/19 08:32 RDW 18.0 % (13.2-15.2) H 05/13/19 08:32 Plt Count 227 K/mm3 (140-440) 05/13/19 08:32 Lymph % (Auto) 17.9 % (13.4-35.0) 05/09/19 05:41 [place] % (Auto) 5.6 % (0.0-7.3) 05/09/19 05:41 Eos % (Auto) Nurse'S Companion 05/13/19 08:32 Baso % (Auto) 0.7 % (0.0-1.8) 05/09/19 05:41 Lymph # 2.1 K/mm3 (1.2-5.4) 05/09/19 05:41 [place] # 0.7 K/mm3 (0.0-0.8) 05/09/19 05:41 Eos # 1.7 K/mm3 (0.0-0.4) H 05/09/19 05:41 Baso # 0.1 K/mm3 (0.0-0.1) 05/09/19 05:41 Add Manual Diff Complete 05/13/19 08:32 Total Counted 100 05/13/19 08:32 Seg Neutrophils % 61.5 % (40.0-70.0) 05/09/19 05:41 Seg Neuts % (Manual) 73.0 % (40.0-70.0) H 05/13/19 08:32 Band Neutrophils % 1.0 % 05/13/19 08:32 Lymphocytes % (Manual) 11.0 % (13.4-35.0) L 05/13/19 08:32 Reactive Lymphs % (Man) 0 % 05/13/19 08:32 Monocytes % (Manual) 1.0 % (0.0-7.3) 05/13/19 08:32 Eosinophils % (Manual) 12.0 % (0.0-4.3) H 05/13/19 08:32 Basophils % (Manual) 1.0 % (0.0-1.8) 05/13/19 08:32 Metamyelocytes % 1.0 % 05/13/19 08:32 Myelocytes % 0 % 05/13/19 08:32 Promyelocytes % 0 % 05/13/19 08:32 Blast Cells % 0 % 05/13/19 08:32 Nucleated RBC % Not Reportable 05/13/19 08:32 Seg Neutrophils # 7.2 K/mm3 (1.8-7.7) 05/09/19 05:41 Seg Neutrophils # Man 8.6 K/mm3 (1.8-7.7) H 05/13/19 08:32 Band Neutrophils # 0.1 K/mm3 05/13/19 08:32 Lymphocytes # (Manual) 1.3 K/mm3 (1.2-5.4) 05/13/19 08:32 Abs React Lymphs (Man) 0.0 K/mm3 05/13/19 08:32 Monocytes # (Manual) 0.1 K/mm3 (0.0-0.8) 05/13/19 08:32 Eosinophils # (Manual) 1.4 K/mm3 (0.0-0.4) H 05/13/19 08:32 Basophils # (Manual) 0.1 K/mm3 (0.0-0.1) 05/13/19 08:32 Metamyelocytes # 0.1 K/mm3 05/13/19 08:32 Myelocytes # 0.0 K/mm3 05/13/19 08:32 Promyelocytes # 0.0 K/mm3 05/13/19 08:32 Blast Cells # 0.0 K/mm3 05/13/19 08:32 WBC Morphology Not Reportable 05/13/19 08:32 Hypersegmented Neuts Not Reportable 05/13/19 08:32 Hyposegmented Neuts Not Reportable 05/13/19 08:32 Hypogranular Neuts Not Reportable 05/13/19 08:32 Smudge Cells Not Reportable 05/13/19 08:32 Toxic Granulation Not Reportable 05/13/19 08:32 Toxic Vacuolation Not Reportable 05/13/19 08:32 Dohle Bodies Not Reportable 05/13/19 08:32 [place]uet Anomaly Not Reportable 05/13/19 08:32 Joyce Rods Not Reportable 05/13/19 08:32 Platelet Estimate Consistent w auto 05/13/19 08:32 Clumped Platelets Not Reportable 05/13/19 08:32 Plt Clumps, EDTA Not Reportable 05/13/19 08:32 Large Platelets Few 05/13/19 08:32 Giant Platelets Not Reportable 05/13/19 08:32 Platelet Satelliting Not Reportable 05/13/19 08:32 Plt Morphology Comment Not Reportable 05/13/19 08:32 RBC Morphology Not Reportable 05/13/19 08:32 Dimorphic RBCs Not Reportable 05/13/19 08:32 Polychromasia Not Reportable 05/13/19 08:32 Hypochromasia Not Reportable 05/13/19 08:32 Poikilocytosis Not Reportable 05/13/19 08:32 Anisocytosis Not Reportable 05/13/19 08:32 Microcytosis Not Reportable 05/13/19 08:32 Macrocytosis Not Reportable 05/13/19 08:32 Spherocytes Not Reportable 05/13/19 08:32 Pappenheimer Bodies Not Reportable 05/13/19 08:32 Sickle Cells Not Reportable 05/13/19 08:32 Target Cells Not Reportable 05/13/19 08:32 Tear Drop Cells Few 05/13/19 08:32 Ovalocytes Not Reportable 05/13/19 08:32 Stomatocytes Few 03/26/19 Unknown Helmet Cells Not Reportable 05/13/19 08:32 [place] Bodies Not Reportable 05/13/19 08:32 [place] Rings Not Reportable 05/13/19 08:32 [place] Cells Not Reportable 05/13/19 08:32 Bite Cells Not Reportable 05/13/19 08:32 Crenated Cell Not Reportable 05/13/19 08:32 Elliptocytes Few 05/13/19 08:32 Acanthocytes (Spur) Not Reportable 05/13/19 08:32 Rouleaux Not Reportable 05/13/19 08:32 Hemoglobin C Crystals Not Reportable 05/13/19 08:32 Schistocytes Not Reportable 05/13/19 08:32 Malaria parasites Not Reportable 05/13/19 08:32 Phil Bodies Not Reportable 05/13/19 08:32 Hem Pathologist Commnt No 05/13/19 08:32 PT 14.8 Sec. (12.2-14.9) 05/10/19 06:42 INR 1.17 (0.87-1.13) H 05/10/19 06:42 APTT 27.9 Sec. (24.2-36.6) 05/10/19 06:42 Fibrinogen 226 mg/dl (211-480) 03/28/19 12:00 D-Dimer 4845.98 ng/mlDDU (0-234) H 03/28/19 12:00 Heparin Anti-Xa Level 0.23 U.I./ml (0.3-0.7) L 03/28/19 05:13 POC ABG pH 7.401 (7.35-7.45) 04/07/19 12:57 ABG pH 7.388 pH Units (7.350-7.450) 04/06/19 05:20 POC ABG pCO2 41.5 (35-45) 04/07/19 12:57 ABG pCO2 38.5 mm Hg 04/06/19 05:20 POC ABG pO2 107 (80-105) H 04/07/19 12:57 ABG pO2 104.0 mm Hg (80.0-90.0) H 04/06/19 05:20 POC ABG HCO3 25.7 (22-26 mml/L) 04/07/19 12:57 ABG HCO3 22.6 mmol/L (20.0-26.0) 04/06/19 05:20 POC ABG Total CO2 27 (23-27mmol/L) 04/07/19 12:57 POC ABG O2 Sat 98 04/07/19 12:57 ABG O2 Saturation 97.8 % (95.0-99.0) 04/06/19 05:20 ABG O2 Content 10.0 (0.0-44) 04/06/19 05:20 POC ABG Base Excess 1 ((-2) - (+3)mmol/L) 04/07/19 12:57 ABG Base Excess -2.1 mmol/L (-2.0-3.0) L 04/06/19 05:20 ABG Hemoglobin 7.3 gm/dl (14.0-18.0) L 04/06/19 05:20 ABG Carboxyhemoglobin 1.7 % (0.0-5.0) 04/06/19 05:20 ABG Methemoglobin 0.6 % (0.0-1.5) 04/06/19 05:20 Oxyhemoglobin 95.5 % (95.0-99.0) 04/06/19 05:20 FiO2 30 % 04/07/19 12:57 Sodium 138 mmol/L (137-145) 05/14/19 08:12 Potassium 4.2 mmol/L (3.6-5.0) 05/14/19 08:12 Chloride 105.0 mmol/L (98-107) 05/14/19 08:12 Carbon Dioxide 18 mmol/L (22-30) L 05/14/19 08:12 Anion Gap 19 mmol/L 05/14/19 08:12 BUN 16 mg/dL (9-20) 05/14/19 08:12 Creatinine 1.1 mg/dL (0.8-1.5) 05/14/19 08:12 Estimated GFR > 60 ml/min 05/14/19 08:12 BUN/Creatinine Ratio 15 % 05/14/19 08:12 Glucose 73 mg/dL (75-100) L 05/14/19 08:12 POC Glucose 86 (70-105) 05/11/19 02:24 Lactic Acid 1.90 mmol/L (0.7-2.0) 03/21/19 21:31 Calcium 9.8 mg/dL (8.4-10.2) 05/14/19 08:12 Ionized Calcium 7.2 mg/dL (4.8-5.6) H* 04/29/19 14:14 Phosphorus 3.00 mg/dL (2.5-4.5) 05/13/19 08:32 Magnesium 1.60 mg/dL (1.7-2.3) L 05/13/19 08:32 Iron 26 ug/dL (49-181) L 04/02/19 05:03 TIBC 138 mcg/dL (250-450) L 04/02/19 05:03 Ferritin 607.0 ng/mL (13.0-400.0) H 04/02/19 05:03 Total Bilirubin 0.30 mg/dL (0.1-1.2) 05/13/19 08:32 Direct Bilirubin 0.4 mg/dL (0-0.2) H 03/31/19 08:20 Indirect Bilirubin 0.1 mg/dL 03/31/19 08:20 AST 11 units/L (5-40) 05/13/19 08:32 ALT 12 units/L (7-56) 05/13/19 08:32 Alkaline Phosphatase 77 units/L (35-129) 05/13/19 08:32 Total Creatine Kinase 62 units/L (55-170) 04/07/19 05:40 CK-MB (CK-2) 54.3 ng/mL (0.0-4.0) H 03/17/19 07:16 CK-MB (CK-2) Rel Index 0.0 (0-4) 03/17/19 07:16 Troponin T 0.058 ng/mL (0.00-0.029) H 03/17/19 07:16 C-Reactive Protein 7.10 mg/dL (0.00-1.30) H 04/17/19 04:15 Serum Total Protein 5.7 g/dL (6.1-8.1) L 05/01/19 06:52 Total Protein 6.9 g/dL (6.3-8.2) 05/13/19 08:32 Albumin 3.3 g/dL (3.9-5) L 05/13/19 08:32 Albumin/Globulin Ratio 0.9 % 05/13/19 08:32 Ywkef-7-Ajmbvmlxd 0.5 g/dL (0.2-0.3) H 05/01/19 06:52 Dsfln-4-Yofjwptyb 0.9 g/dL (0.5-0.9) 05/01/19 06:52 Beta Globulins 0.4 g/dL (0.2-0.5) 05/01/19 06:52 Gamma Globulins 1.0 g/dL (0.8-1.7) 05/01/19 06:52 Abnorm Protein Band 1 see below 05/01/19 06:52 PEP Interpretation see below H 05/01/19 06:52 Triglycerides 309 mg/dL (2-149) H 03/29/19 06:22 Cholesterol 88 mg/dL (50-199) 03/16/19 22:32 LDL Cholesterol Direct 10 mg/dL (50-130) L 03/16/19 22:32 HDL Cholesterol 7 mg/dL (40-59) L 03/16/19 22:32 Cholesterol/HDL Ratio 12.57 % 03/16/19 22:32 Vitamin B12 903.0 pg/mL (211-911) 04/02/19 05:03 25-OH Vitamin D Total See scanned result 04/29/19 14:14 25-Hydroxy Vitamin D2 <4 ng/mL 04/29/19 14:14 1,25 Dihydroxy Vit D2 <8 pg/mL 04/29/19 14:14 25-Hydroxy Vitamin D3 11 ng/mL 04/29/19 14:14 1,25 Dihydroxy Vit D3 <8 pg/mL 04/29/19 14:14 Folate 8.05 ng/mL (7.3-26.0) 04/02/19 05:03 Procalcitonin 25.42 ng/mL (<0.15) 03/27/19 19:21 TSH 2.200 mlU/mL (0.270-4.200) 03/16/19 17:05 Free T4 0.72 ng/dL (0.76-1.46) L 03/16/19 17:05 PTH Intact 8.83 pg/mL (15-65) L 04/29/19 14:14 Urine Color Yellow (Yellow) 04/15/19 22:11 Urine Turbidity Clear (Clear) 04/15/19 22:11 Urine pH 6.0 (5.0-7.0) 04/15/19 22:11 Ur Specific [place] 1.010 (1.003-1.030) 04/15/19 22:11 Urine Protein 30 mg/dl mg/dL (Negative) 04/15/19 22:11 Urine Glucose (UA) Neg mg/dL (Negative) 04/15/19 22:11 Urine Ketones Neg mg/dL (Negative) 04/15/19 22:11 Urine Blood Mod (Negative) 04/15/19 22:11 Urine Nitrite Neg (Negative) 04/15/19 22:11 Urine Bilirubin Neg (Negative) 04/15/19 22:11 Urine Urobilinogen < 2.0 mg/dL (<2.0) 04/15/19 22:11 Ur Leukocyte Esterase Neg (Negative) 04/15/19 22:11 Urine WBC (Auto) 4.0 /HPF (0.0-6.0) 04/15/19 22:11 Urine RBC (Auto) 2.0 /HPF (0.0-6.0) 04/15/19 22:11 U Epithel Cells (Auto) < 1.0 /HPF (0-13.0) 04/15/19 22:11 Amorphous Crystals 1+ 04/05/19 16:50 Urine Mucus Few /HPF 03/17/19 16:05 Urine Sperm 2+ /HPF (PLANT CONTROL AIDE) 03/17/19 16:05 Urine Eosinophils None seen (None Seen) 03/17/19 16:05 Ur Random Creatinine See scanned result 05/01/19 06:15 U Random Total Protein See scanned result 05/01/19 06:15 Urine Creatinine 106.6 mg/dL (0.1-20.0) H 03/17/19 16:05 Protein/Creatinin Ratio See scanned result 05/01/19 06:15 Urine Sodium 95 mmol/L 03/17/19 16:05 U Abnormal Prot Band 1 See scanned result 05/01/19 06:15 U Abnormal Prot Band 2 See scanned result 05/01/19 06:15 U Abnormal Prot Band 3 See scanned result 05/01/19 06:15 Vancomycin Trough 11.5 ug/mL (5.0-20.0) 03/18/19 13:19 Random Vancomycin 10.8 ug/mL (0-40.0) 04/14/19 03:55 Salicylates < 0.3 mg/dL (2.8-20.0) L 03/16/19 17:05 Urine Opiates Screen Presumptive negative 03/17/19 16:05 Urine Methadone Screen Presumptive negative 03/17/19 16:05 Acetaminophen < 5.0 ug/mL (10.0-30.0) L 03/16/19 17:05 Ur Barbiturates Screen Presumptive negative 03/17/19 16:05 Ur Phencyclidine Scrn Presumptive negative 03/17/19 16:05 Ur Amphetamines Screen Presumptive negative 03/17/19 16:05 U Benzodiazepines Scrn Presumptive positive 03/17/19 16:05 Urine Cocaine Screen Presumptive negative 03/17/19 16:05 U Marijuana (THC) Screen Presumptive negative 03/17/19 16:05 Drugs of Abuse Note Disclamer 03/17/19 16:05 Plasma/Serum Alcohol < 0.01 % (0-0.07) 03/16/19 17:05 Immunofix Electrophor see below 05/01/19 06:52 LANDY Screen Negative (Negative) 04/17/19 04:15 Proteinase 3 (PR3) Ab <1.0 AI (<1.0) 04/21/19 04:22 Myeloperoxidase Ab <1.0 AI (<1.0) 04/21/19 04:22 Glomerular Base Mem IgG See scanned result 04/21/19 04:22 Complement C3 150 mg/dL (82-185) 04/17/19 04:15 Complement C4 37 mg/dL (15-53) 04/17/19 04:15 Hepatitis A IgM Ab Non-reactive (NonReactive) 04/18/19 10:02 Hep Bs Antigen Non-reactive (Negative) 04/18/19 10:02 Hep B Core IgM Ab Non-reactive (NonReactive) 04/18/19 10:02 Hepatitis C Antibody Non-reactive (NonReactive) 04/18/19 10:02 HIV 1&2 Antibody Rapid Non react (Non React) 03/17/19 11:52 HIV P24 Antigen Non react (Non React) 03/17/19 11:52 Influenza A (Rapid) Negative (Negative) 03/17/19 17:00 Influenza B (Rapid) Negative (Negative) 03/17/19 17:00 Group A Strep Rapid Negative (Negative) 03/17/19 17:00 Miscellaneous Test Flexitest 1 03/21/19 12:00 Blood Type A POSITIVE 04/02/19 16:34 Antibody Screen Negative 04/02/19 16:34 Crossmatch See Detail 04/02/19 16:34 Active Medications - Current Medications Current Medications: Generic Name Dose Route Start Last Admin Trade Name Freq PRN Reason Stop Dose Admin Acetaminophen 650 mg 04/02/19 23:26 05/08/19 21:01 Tylenol PO 650 mg Q4H PRN Administration Pain, Mild (1-3),temp>100.5 Acetaminophen/Hydrocodone Bitart 1 each 05/02/19 11:50 05/17/19 21:[address] 5/325 PO 1 each Q6H PRN Administration Pain, Moderate (4-6) Al Hydrox/Mg Hydrox/Simethicone 15 ml 04/30/19 15:15 04/30/19 15:53 Alum-Mag Hydrox-Simeth 898-523-32ol/5ml PO 15 ml Q4H PRN Administration Indigestion Albuterol 2.5 mg 03/29/19 13:08 Proventil IH Q4HRT PRN Shortness Of Breath Lipase/Protease/Amylase 1 each 04/20/19 13:17 Pancreaze 10,500 Unit FEEDTUBE PRN PRN For Clogged Feeding Tube Bacitracin 1 applic 04/17/19 08:00 Antibiotic Oint TP Q4H PRN upper lip sore/open Dextrose 50 gm 04/17/19 08:00 D50w (25gm) Vial IV Q1H PRN Hypoglycemia Gabapentin 300 mg 05/17/19 14:40 05/18/19 05:50 Gabapentin PO 300 mg Q8HR PAOLO Administration Hydrophilic Ointment 1 applic 03/16/19 15:50 04/19/19 18:24 Vaseline Lip Therapy TP 1 applic Q2HR PRN Administration Dry Lips Sodium Chloride 500 mls @ 50 mls/hr 05/10/19 08:00 05/11/19 06:55 Nacl 0.9% 500 Ml IV 50 mls/hr DIRECT PAOLO Administration Melatonin 5 mg 04/26/19 21:00 05/15/19 21:09 Melatonin PO 5 mg QHS PRN Administration Sleep Metoprolol Succinate 50 mg 05/10/19 10:00 05/17/19 11:00 Metoprolol Xl PO 50 mg QDAY PAOLO Administration Multi-Ingred Cream/Lotion/Oil/Oint 1 applic 03/16/19 15:50 03/19/19 20:10 Artificial Tears Ophth Oint OU 1 applic Q4HR PRN Administration Dry Eye(s) Pantoprazole Sodium 40 mg 05/07/19 22:00 05/17/19 21:17 Protonix PO 40 mg BID PAOLO Administration Simple Syrup 15 ml 04/20/19 13:17 Simple Syrup FEEDTUBE PRN PRN Hypoglycemia Simple Syrup 30 ml 04/20/19 13:29 05/01/19 17:57 Simple Syrup FEEDTUBE 30 ml PRN PRN Administration Hypoglycemia Sodium Bicarbonate 325 mg 04/20/19 13:17 04/27/19 11:03 Sodium Bicarbonate FEEDTUBE 325 mg PRN PRN Administration For Clogged Feeding Tube Nutrition/Malnutrition Assess - Dietary Evaluation Nutrition/Malnutrition Findings: Nutrition Notes Start: 03/17/19 14:22 Freq: Status: Active Protocol: Document 05/14/19 15:52 RM (Rec: 05/14/19 16:05 RM [id number]) Nutrition Notes Initial or Follow up Reassessment Current Diagnosis Sepsis Other Pertinent Diagnosis GIB, afib Current Diet Regular + Ensure Clear 4 times daily Labs/Tests Reviewed Pertinent Medications Reviewed Height 6 ft Weight 89.3 kg [place] Body Weight (kg) 80.90 BMI 26.6 Weight change and time frame Noted large wt decrease. Likely inaccurate. Requested nurse weigh pt when possible. Subjective/Other Information Pt sitting in chair next to bed at time of visit. Stated that his appetite is good and that he eats most of his meals . Stated that he is receiving Ensure Clear 4 times daily and drinks them all. Pt agreed to reduce number of Ensure Clear he receives to BID. Per nurse pt is no longer on HD. Percent of energy/protein needs met: 100%/100% Burn Absent Trauma Absent Minimum of two criteria No #1 Nutrition Diagnosis Inadequate oral intake As Evidenced by Signs and Symptoms pt meeting 100% of calorie and protein needs via PO and ONS intakes Diagnosis Progress(for reassessment Resolved documentation) Is patient on ventilator? No Is Patient Ambulatory and/or Out of Bed No [facility] [phone] Kcal/Kg value to use for calculation 23 Approximate Energy Requirements Using 4 kcal/Kg Calculation Used for Recommendations Kcal/kg Additional Notes Protein Needs: 91-114g (0.8-1g /kg 114kg adjBW) Fluid needs 1ml/kcal Calorie recommendation adjusted to meet needs for previously recorded wt. Nutrition Intervention Change Diet Order: Regular Add Supplement/Snack (indicate name/kcal Ensure Clear BID /protein ) Provides kCal: 480 Provides Protein (gm) 16 Goal #1 Continue to meet at least 75% of kcal/PRO needs via PO and ONS intakes Anticipated Discharge Needs: Regular diet Follow-Up By: 05/18/19 Additional Comments Follow for PO and ONS intakes, wt
[2019-05-18] MEDS: PANTOPRAZOLE 40 MG TAB PO SCH ×2 (09:40→21:04)
[2019-05-18] MEDS: METOPROLOL SUCCINATE XL 50 MG TAB PO SCH (09:40)
[2019-05-18] MEDS: HYDROcodone/ACETAMINOPHEN 5-325 MG TAB PO PRN (09:40)
--- NOTE | 2019-05-18 11:34 | Progress Note ---
Assessment and Plan Severe sepsis with shock, resolved. Acute hypoxemic respiratory failure, s/p mechanical ventilator support. Acute kidney injury secondary to ATN s/p HD- resolved. Leukocytosis-resolved Elevated serum transaminases/possible shock liver-- Resolved. Acute encephalopathy, toxic metabolic- resolved Thrombocytopenia- etiology, multifactorial- resolved RIJ non-occlusive thrombus Oropharyngeal dysphagia- resolved Acute blood loss anemia with hemorrhagic shock- resolved Critical illness myopathy Hypernatremia-resolved Continue all supportive care Continue aggressive PT/OT -prn ABG and CXR - Continue to monitor off antibiotics - prn analgesia - prn supportive blood transfusions to keep HgB > 7.0 - continue to avoid nephrotoxins - continue VTE prophylaxis - accuchecks with glycemic control per SSI for target BG of 140-180 mg/dl - avoid hypoglycemia -Discharge planning CONDITION: IMPROVING PROGNOSIS: FAIR CODE STATUS: FULL Subjective Date of service: 05/18/19 Principal diagnosis: Septic Shock; Ac. hypoxemic resp failure; Renzo. PNA; Rhabdomyolysis; RUBEN Interval history: Patient is seen today for: Severe sepsis with shock; Acute hypoxemic respiratory failure; Aspiration pneumonia; Morbid obesity; Rhabdomyolysis; Acute kidney injury; Morbid obesity; Elevated serum transaminases/possible shock liver; Acute encephalopathy (Toxic/Met) Seen and examined at bedside; 24hour events reviewed; nursing and respiratory care staff consulted; no adverse overnight events reported to me; resting peacefully in bed; denies any chest pain, no shortness of breath. Just tired and weak, has bilateral foot drop. Continues to tolerate PT/OT. Off supplemental oxygen. Tolerating regular diet. Persistent foot drop bilaterally. On going fatigue Was able to stand and put some weight on his feet today Upbeat Vitals, labs, medications, chart reviewed. Objective Vital Signs - 12hr 05/17/19 05/18/19 05/18/19 23:41 04:57 09:40 Temperature 97.7 F 97.6 F Pulse Rate 81 81 82 Respiratory 16 17 Rate Blood Pressure 113/76 114/76 120/78 O2 Sat by Pulse 97 97 Oximetry Constitutional: alert Eyes: non-icteric ENT: oropharynx moist, other Neck: supple, no lymphadenopathy, no JVD, other (large neck circumference) Effort: normal Ascultation: Bilateral: diminished breath sounds, rales, rhonchi (scant) Percussion: Bilateral: not dull Cardiovascular: regular rate and rhythm, other ( S1,S2) Gastrointestinal: normoactive bowel sounds, soft, non-tender, non-distended, other (obese) Integumentary: normal Extremities: no cyanosis, pink and warm, pulses normal, no ischemia or petechiae Neurologic: normal mental status, non-focal exam (grossly), pupils equal and round, CN II-XII normal, other (very weak, bilateral foot drop) Psychiatric: mood appropriate, affect normal CBC and BMP: 05/20/19 06:34 05/19/19 06:47 ABG, PT/INR, D-dimer: ABG POC ABG pH 7.401 (7.35-7.45) 04/07/19 12:57 ABG pH 7.388 pH Units (7.350-7.450) 04/06/19 05:20 POC ABG pCO2 41.5 (35-45) 04/07/19 12:57 ABG pCO2 38.5 mm Hg 04/06/19 05:20 POC ABG pO2 107 (80-105) H 04/07/19 12:57 ABG pO2 104.0 mm Hg (80.0-90.0) H 04/06/19 05:20 POC ABG HCO3 25.7 (22-26 mml/L) 04/07/19 12:57 POC ABG Total CO2 27 (23-27mmol/L) 04/07/19 12:57 POC ABG O2 Sat 98 04/07/19 12:57 ABG O2 Saturation 97.8 % (95.0-99.0) 04/06/19 05:20 PT/INR, D-dimer PT 14.8 Sec. (12.2-14.9) 05/10/19 06:42 INR 1.17 (0.87-1.13) H 05/10/19 06:42 D-Dimer 4845.98 ng/mlDDU (0-234) H 03/28/19 12:00 Abnormal lab findings: Abnormal Labs 03/16/19 03/16/19 03/16/19 15:32 16:03 16:05 WBC 27.0 H RBC 5.55 H Hgb 15.7 H Hct 47.1 H MCV MCH MCHC RDW Plt Count 75 L Lymph % (Auto) Craig % (Auto) Eos % (Auto) Lymph # Craig # Eos # Seg Neutrophils % Seg Neuts % (Manual) 85.0 H Lymphocytes % (Manual) 2.0 L Monocytes % (Manual) Eosinophils % (Manual) Nucleated RBC % Seg Neutrophils # Seg Neutrophils # Man 23.0 H Lymphocytes # (Manual) 0.5 L Monocytes # (Manual) Eosinophils # (Manual) PT INR D-Dimer Heparin Anti-Xa Level POC ABG pH ABG pH POC ABG pCO2 POC ABG pO2 ABG pO2 ABG HCO3 ABG O2 Saturation ABG Base Excess ABG Hemoglobin Oxyhemoglobin Sodium 127 L Potassium Chloride 87.8 L Carbon Dioxide 17 L BUN 49 H Creatinine 5.8 H Glucose 150 H POC Glucose 118 H Lactic Acid Calcium 6.6 L Ionized Calcium Phosphorus Magnesium 1.10 L Iron TIBC Ferritin Total Bilirubin Direct Bilirubin AST ALT Alkaline Phosphatase Total Creatine Kinase 50401 H CK-MB (CK-2) Troponin T C-Reactive Protein Serum Total Protein Total Protein Albumin Wevcw-0-Gmjoxhqxp Yauvq-1-Ymtrpqaow PEP Interpretation Triglycerides LDL Cholesterol Direct HDL Cholesterol Free T4 PTH Intact Urine WBC (Auto) Urine Creatinine Salicylates Acetaminophen Crossmatch 03/16/19 03/16/19 03/16/19 16:59 17:05 17:05 WBC RBC Hgb Hct MCV MCH MCHC RDW Plt Count Lymph % (Auto) Craig % (Auto) Eos % (Auto) Lymph # Craig # Eos # Seg Neutrophils % Seg Neuts % (Manual) Lymphocytes % (Manual) Monocytes % (Manual) Eosinophils % (Manual) Nucleated RBC % Seg Neutrophils # Seg Neutrophils # Man Lymphocytes # (Manual) Monocytes # (Manual) Eosinophils # (Manual) PT INR D-Dimer Heparin Anti-Xa Level POC ABG pH 7.297 L ABG pH POC ABG pCO2 33.0 L POC ABG pO2 ABG pO2 ABG HCO3 ABG O2 Saturation ABG Base Excess ABG Hemoglobin Oxyhemoglobin Sodium Potassium Chloride Carbon Dioxide BUN Creatinine Glucose POC Glucose Lactic Acid Calcium Ionized Calcium Phosphorus Magnesium Iron TIBC Ferritin Total Bilirubin Direct Bilirubin AST ALT Alkaline Phosphatase Total Creatine Kinase 51457 H CK-MB (CK-2) 83.1 H Troponin T C-Reactive Protein Serum Total Protein Total Protein Albumin Wmxfa-8-Wgvfnnpey Urksx-6-Zadgmlgvu PEP Interpretation Triglycerides LDL Cholesterol Direct HDL Cholesterol Free T4 0.72 L PTH Intact Urine WBC (Auto) Urine Creatinine Salicylates Acetaminophen Crossmatch 03/16/19 03/16/19 03/16/19 17:05 17:05 17:05 WBC RBC Hgb Hct MCV MCH MCHC RDW Plt Count Lymph % (Auto) Craig % (Auto) Eos % (Auto) Lymph # Craig # Eos # Seg Neutrophils % Seg Neuts % (Manual) Lymphocytes % (Manual) Monocytes % (Manual) Eosinophils % (Manual) Nucleated RBC % Seg Neutrophils # Seg Neutrophils # Man Lymphocytes # (Manual) Monocytes # (Manual) Eosinophils # (Manual) PT INR D-Dimer Heparin Anti-Xa Level POC ABG pH ABG pH POC ABG pCO2 POC ABG pO2 ABG pO2 ABG HCO3 ABG O2 Saturation ABG Base Excess ABG Hemoglobin Oxyhemoglobin Sodium Potassium Chloride Carbon Dioxide BUN Creatinine Glucose POC Glucose Lactic Acid 5.10 H* Calcium Ionized Calcium Phosphorus Magnesium Iron TIBC Ferritin Total Bilirubin Direct Bilirubin AST ALT Alkaline Phosphatase Total Creatine Kinase CK-MB (CK-2) Troponin T C-Reactive Protein Serum Total Protein Total Protein Albumin Pigfx-2-Qklvpvykz Ixswg-7-Ricshzamn PEP Interpretation Triglycerides LDL Cholesterol Direct HDL Cholesterol Free T4 PTH Intact Urine WBC (Auto) Urine Creatinine Salicylates < 0.3 L Acetaminophen < 5.0 L Crossmatch 03/16/19 03/16/19 03/16/19 17:05 17:05 20:35 WBC RBC Hgb Hct MCV MCH MCHC RDW Plt Count Lymph % (Auto) Craig % (Auto) Eos % (Auto) Lymph # Craig # Eos # Seg Neutrophils % Seg Neuts % (Manual) Lymphocytes % (Manual) Monocytes % (Manual) Eosinophils % (Manual) Nucleated RBC % Seg Neutrophils # Seg Neutrophils # Man Lymphocytes # (Manual) Monocytes # (Manual) Eosinophils # (Manual) PT 15.9 H INR 1.30 H D-Dimer Heparin Anti-Xa Level POC ABG pH ABG pH POC ABG pCO2 POC ABG pO2 ABG pO2 ABG HCO3 ABG O2 Saturation ABG Base Excess ABG Hemoglobin Oxyhemoglobin Sodium Potassium Chloride Carbon Dioxide BUN Creatinine Glucose POC Glucose Lactic Acid 3.30 H* Calcium Ionized Calcium Phosphorus Magnesium Iron TIBC Ferritin Total Bilirubin 6.20 H Direct Bilirubin 5.9 H AST 800 H ALT 120 H Alkaline Phosphatase Total Creatine Kinase CK-MB (CK-2) Troponin T C-Reactive Protein Serum Total Protein Total Protein 4.4 L Albumin 2.4 L Rjoxy-6-Mitiaadug Jjkzs-4-Epdrdvxax PEP Interpretation Triglycerides LDL Cholesterol Direct HDL Cholesterol Free T4 PTH Intact Urine WBC (Auto) Urine Creatinine Salicylates Acetaminophen Crossmatch 03/16/19 03/16/19 03/16/19 21:45 22:32 Unknown WBC RBC Hgb Hct MCV MCH MCHC RDW Plt Count Lymph % (Auto) Craig % (Auto) Eos % (Auto) Lymph # Craig # Eos # Seg Neutrophils % Seg Neuts % (Manual) Lymphocytes % (Manual) Monocytes % (Manual) Eosinophils % (Manual) Nucleated RBC % Seg Neutrophils # Seg Neutrophils # Man Lymphocytes # (Manual) Monocytes # (Manual) Eosinophils # (Manual) PT INR D-Dimer Heparin Anti-Xa Level POC ABG pH ABG pH POC ABG pCO2 POC ABG pO2 ABG pO2 ABG HCO3 ABG O2 Saturation ABG Base Excess ABG Hemoglobin Oxyhemoglobin Sodium Potassium Chloride Carbon Dioxide BUN Creatinine Glucose POC Glucose Lactic Acid 3.30 H* 3.00 H* Calcium Ionized Calcium Phosphorus Magnesium Iron TIBC Ferritin Total Bilirubin Direct Bilirubin AST ALT Alkaline Phosphatase Total Creatine Kinase CK-MB (CK-2) Troponin T 0.047 H D C-Reactive Protein Serum Total Protein Total Protein Albumin Pywnr-9-Vhaqjoilo Nlotb-6-Otlvfyrkt PEP Interpretation Triglycerides 395 H LDL Cholesterol Direct 10 L HDL Cholesterol 7 L Free T4 PTH Intact Urine WBC (Auto) Urine Creatinine Salicylates Acetaminophen Crossmatch 03/17/19 03/17/19 03/17/19 03:45 03:45 03:45 WBC RBC Hgb Hct MCV MCH MCHC RDW Plt Count Lymph % (Auto) Craig % (Auto) Eos % (Auto) Lymph # Craig # Eos # Seg Neutrophils % Seg Neuts % (Manual) Lymphocytes % (Manual) Monocytes % (Manual) Eosinophils % (Manual) Nucleated RBC % Seg Neutrophils # Seg Neutrophils # Man Lymphocytes # (Manual) Monocytes # (Manual) Eosinophils # (Manual) PT INR D-Dimer Heparin Anti-Xa Level POC ABG pH ABG pH POC ABG pCO2 POC ABG pO2 ABG pO2 ABG HCO3 ABG O2 Saturation ABG Base Excess ABG Hemoglobin Oxyhemoglobin Sodium 131 L Potassium Chloride 88.9 L Carbon Dioxide BUN 53 H Creatinine 7.1 H Glucose POC Glucose Lactic Acid 4.10 H* Calcium 5.4 L* D Ionized Calcium Phosphorus 7.30 H Magnesium 1.60 L Iron TIBC Ferritin Total Bilirubin 5.90 H Direct Bilirubin AST 801 H ALT 109 H Alkaline Phosphatase Total Creatine Kinase 82197 H 95058 H CK-MB (CK-2) 41.5 H Troponin T 0.054 H C-Reactive Protein Serum Total Protein Total Protein 4.5 L Albumin 2.0 L Xfnuy-0-Wehbphsim Yngpl-1-Cvdsuhtoi PEP Interpretation Triglycerides LDL Cholesterol Direct HDL Cholesterol Free T4 PTH Intact Urine WBC (Auto) Urine Creatinine Salicylates Acetaminophen Crossmatch 03/17/19 03/17/19 03/17/19 05:47 07:16 07:16 WBC RBC Hgb Hct MCV MCH MCHC RDW Plt Count Lymph % (Auto) Craig % (Auto) Eos % (Auto) Lymph # Craig # Eos # Seg Neutrophils % Seg Neuts % (Manual) Lymphocytes % (Manual) Monocytes % (Manual) Eosinophils % (Manual) Nucleated RBC % Seg Neutrophils # Seg Neutrophils # Man Lymphocytes # (Manual) Monocytes # (Manual) Eosinophils # (Manual) PT INR D-Dimer Heparin Anti-Xa Level POC ABG pH 7.193 L ABG pH POC ABG pCO2 45.2 H POC ABG pO2 65 L ABG pO2 ABG HCO3 ABG O2 Saturation ABG Base Excess ABG Hemoglobin Oxyhemoglobin Sodium Potassium Chloride Carbon Dioxide BUN Creatinine Glucose POC Glucose Lactic Acid 5.50 H* Calcium Ionized Calcium Phosphorus Magnesium Iron TIBC Ferritin Total Bilirubin Direct Bilirubin AST ALT Alkaline Phosphatase Total Creatine Kinase 61104 H CK-MB (CK-2) 54.3 H Troponin T 0.058 H C-Reactive Protein Serum Total Protein Total Protein Albumin Hovzy-4-Jmaswxlmw Krsge-8-Jfexaukec PEP Interpretation Triglycerides LDL Cholesterol Direct HDL Cholesterol Free T4 PTH Intact Urine WBC (Auto) Urine Creatinine Salicylates Acetaminophen Crossmatch 03/17/19 03/17/19 03/17/19 11:52 12:51 13:01 WBC RBC Hgb Hct MCV MCH MCHC RDW Plt Count Lymph % (Auto) Craig % (Auto) Eos % (Auto) Lymph # Craig # Eos # Seg Neutrophils % Seg Neuts % (Manual) Lymphocytes % (Manual) Monocytes % (Manual) Eosinophils % (Manual) Nucleated RBC % Seg Neutrophils # Seg Neutrophils # Man Lymphocytes # (Manual) Monocytes # (Manual) Eosinophils # (Manual) PT INR D-Dimer Heparin Anti-Xa Level POC ABG pH 7.154 L ABG pH POC ABG pCO2 34.3 L POC ABG pO2 73 L ABG pO2 ABG HCO3 ABG O2 Saturation ABG Base Excess ABG Hemoglobin Oxyhemoglobin Sodium Potassium Chloride Carbon Dioxide BUN Creatinine Glucose POC Glucose 60 L Lactic Acid 8.20 H* Calcium Ionized Calcium Phosphorus Magnesium Iron TIBC Ferritin Total Bilirubin Direct Bilirubin AST ALT Alkaline Phosphatase Total Creatine Kinase CK-MB (CK-2) Troponin T C-Reactive Protein Serum Total Protein Total Protein Albumin Eytuz-0-Allerifeu Shcua-1-Iydjbvwmm PEP Interpretation Triglycerides LDL Cholesterol Direct HDL Cholesterol Free T4 PTH Intact Urine WBC (Auto) Urine Creatinine Salicylates Acetaminophen Crossmatch 03/17/19 03/17/19 03/17/19 14:37 14:37 14:37 WBC 29.3 H RBC Hgb Hct MCV MCH MCHC RDW 15.8 H Plt Count 45 L Lymph % (Auto) Craig % (Auto) Eos % (Auto) Lymph # Craig # Eos # Seg Neutrophils % Seg Neuts % (Manual) 81.0 H Lymphocytes % (Manual) 1.0 L Monocytes % (Manual) 15.0 H Eosinophils % (Manual) Nucleated RBC % Seg Neutrophils # Seg Neutrophils # Man 23.7 H Lymphocytes # (Manual) 0.3 L Monocytes # (Manual) 4.4 H Eosinophils # (Manual) PT INR D-Dimer Heparin Anti-Xa Level POC ABG pH ABG pH POC ABG pCO2 POC ABG pO2 ABG pO2 ABG HCO3 ABG O2 Saturation ABG Base Excess ABG Hemoglobin Oxyhemoglobin Sodium Potassium Chloride Carbon Dioxide BUN Creatinine Glucose POC Glucose Lactic Acid 4.90 H* Calcium Ionized Calcium Phosphorus Magnesium Iron TIBC Ferritin Total Bilirubin Direct Bilirubin AST ALT Alkaline Phosphatase Total Creatine Kinase CK-MB (CK-2) Troponin T C-Reactive Protein 24.90 H Serum Total Protein Total Protein Albumin Bltia-1-Ztqsgaiui Gnrpi-7-Ncpiqyicd PEP Interpretation Triglycerides LDL Cholesterol Direct HDL Cholesterol Free T4 PTH Intact Urine WBC (Auto) Urine Creatinine Salicylates Acetaminophen Crossmatch 03/17/19 03/17/19 03/17/19 16:05 16:05 17:02 WBC RBC Hgb Hct MCV MCH MCHC RDW Plt Count Lymph % (Auto) Craig % (Auto) Eos % (Auto) Lymph # Craig # Eos # Seg Neutrophils % Seg Neuts % (Manual) Lymphocytes % (Manual) Monocytes % (Manual) Eosinophils % (Manual) Nucleated RBC % Seg Neutrophils # Seg Neutrophils # Man Lymphocytes # (Manual) Monocytes # (Manual) Eosinophils # (Manual) PT INR D-Dimer Heparin Anti-Xa Level POC ABG pH 7.183 L ABG pH POC ABG pCO2 POC ABG pO2 65 L ABG pO2 ABG HCO3 ABG O2 Saturation ABG Base Excess ABG Hemoglobin Oxyhemoglobin Sodium Potassium Chloride Carbon Dioxide BUN Creatinine Glucose POC Glucose Lactic Acid Calcium Ionized Calcium Phosphorus Magnesium Iron TIBC Ferritin Total Bilirubin Direct Bilirubin AST ALT Alkaline Phosphatase Total Creatine Kinase CK-MB (CK-2) Troponin T C-Reactive Protein Serum Total Protein Total Protein Albumin Rjgei-9-Jmytvouna Ivska-0-Czyltkjwj PEP Interpretation Triglycerides LDL Cholesterol Direct HDL Cholesterol Free T4 PTH Intact Urine WBC (Auto) 30.0 H Urine Creatinine 106.6 H Salicylates Acetaminophen Crossmatch 03/18/19 03/18/19 03/18/19 05:12 05:16 05:53 WBC RBC Hgb Hct MCV MCH MCHC RDW Plt Count Lymph % (Auto) Craig % (Auto) Eos % (Auto) Lymph # Craig # Eos # Seg Neutrophils % Seg Neuts % (Manual) Lymphocytes % (Manual) Monocytes % (Manual) Eosinophils % (Manual) Nucleated RBC % Seg Neutrophils # Seg Neutrophils # Man Lymphocytes # (Manual) Monocytes # (Manual) Eosinophils # (Manual) PT INR D-Dimer Heparin Anti-Xa Level POC ABG pH 7.257 L ABG pH POC ABG pCO2 31.6 L POC ABG pO2 69 L ABG pO2 ABG HCO3 ABG O2 Saturation ABG Base Excess ABG Hemoglobin Oxyhemoglobin Sodium Potassium Chloride Carbon Dioxide BUN Creatinine Glucose POC Glucose 141 H Lactic Acid 5.00 H* Calcium Ionized Calcium Phosphorus Magnesium Iron TIBC Ferritin Total Bilirubin Direct Bilirubin AST ALT Alkaline Phosphatase Total Creatine Kinase CK-MB (CK-2) Troponin T C-Reactive Protein Serum Total Protein Total Protein Albumin Dfrgf-0-Uzotvfifq Qlxrm-9-Wkobivqfa PEP Interpretation Triglycerides LDL Cholesterol Direct HDL Cholesterol Free T4 PTH Intact Urine WBC (Auto) Urine Creatinine Salicylates Acetaminophen Crossmatch 03/18/19 03/18/19 03/18/19 06:57 08:40 08:40 WBC 31.7 H RBC Hgb Hct MCV MCH MCHC RDW 15.5 H Plt Count 35 L Lymph % (Auto) Craig % (Auto) Eos % (Auto) Lymph # Craig # Eos # Seg Neutrophils % Seg Neuts % (Manual) Lymphocytes % (Manual) Monocytes % (Manual) Eosinophils % (Manual) Nucleated RBC % Seg Neutrophils # Seg Neutrophils # Man Lymphocytes # (Manual) Monocytes # (Manual) Eosinophils # (Manual) PT INR D-Dimer Heparin Anti-Xa Level POC ABG pH ABG pH POC ABG pCO2 POC ABG pO2 ABG pO2 ABG HCO3 ABG O2 Saturation ABG Base Excess ABG Hemoglobin Oxyhemoglobin Sodium 132 L Potassium 5.5 H D Chloride 88.5 L Carbon Dioxide 18 L BUN 71 H Creatinine 8.1 H Glucose 205 H POC Glucose Lactic Acid 5.00 H* Calcium 4.1 L* D Ionized Calcium Phosphorus Magnesium 2.40 H Iron TIBC Ferritin Total Bilirubin 7.50 H Direct Bilirubin AST 1088 H ALT 159 H Alkaline Phosphatase 190 H Total Creatine Kinase 994770 H CK-MB (CK-2) Troponin T C-Reactive Protein Serum Total Protein Total Protein 4.7 L Albumin 1.8 L Poltf-9-Hooslxwtd Fmzbh-7-Fftfsfppc PEP Interpretation Triglycerides LDL Cholesterol Direct HDL Cholesterol Free T4 PTH Intact Urine WBC (Auto) Urine Creatinine Salicylates Acetaminophen Crossmatch 03/18/19 03/18/19 03/18/19 12:33 12:50 13:19 WBC RBC Hgb Hct MCV MCH MCHC RDW Plt Count Lymph % (Auto) Craig % (Auto) Eos % (Auto) Lymph # Craig # Eos # Seg Neutrophils % Seg Neuts % (Manual) Lymphocytes % (Manual) Monocytes % (Manual) Eosinophils % (Manual) Nucleated RBC % Seg Neutrophils # Seg Neutrophils # Man Lymphocytes # (Manual) Monocytes # (Manual) Eosinophils # (Manual) PT INR D-Dimer Heparin Anti-Xa Level POC ABG pH 7.282 L ABG pH POC ABG pCO2 POC ABG pO2 67 L ABG pO2 ABG HCO3 ABG O2 Saturation ABG Base Excess ABG Hemoglobin Oxyhemoglobin Sodium Potassium Chloride Carbon Dioxide BUN Creatinine Glucose POC Glucose 129 H Lactic Acid 3.30 H* Calcium Ionized Calcium Phosphorus Magnesium Iron TIBC Ferritin Total Bilirubin Direct Bilirubin AST ALT Alkaline Phosphatase Total Creatine Kinase CK-MB (CK-2) Troponin T C-Reactive Protein Serum Total Protein Total Protein Albumin Kpwpq-0-Qbjwzqiyj Bhwjx-8-Vuwoponid PEP Interpretation Triglycerides LDL Cholesterol Direct HDL Cholesterol Free T4 PTH Intact Urine WBC (Auto) Urine Creatinine Salicylates Acetaminophen Crossmatch 03/18/19 03/18/19 03/18/19 13:19 16:50 18:11 WBC RBC Hgb Hct MCV MCH MCHC RDW Plt Count Lymph % (Auto) Craig % (Auto) Eos % (Auto) Lymph # Craig # Eos # Seg Neutrophils % Seg Neuts % (Manual) Lymphocytes % (Manual) Monocytes % (Manual) Eosinophils % (Manual) Nucleated RBC % Seg Neutrophils # Seg Neutrophils # Man Lymphocytes # (Manual) Monocytes # (Manual) Eosinophils # (Manual) PT INR D-Dimer Heparin Anti-Xa Level POC ABG pH ABG pH POC ABG pCO2 POC ABG pO2 59 L ABG pO2 ABG HCO3 ABG O2 Saturation ABG Base Excess ABG Hemoglobin Oxyhemoglobin Sodium Potassium Chloride Carbon Dioxide BUN Creatinine Glucose POC Glucose 151 H Lactic Acid Calcium 4.2 L* Ionized Calcium Phosphorus Magnesium Iron TIBC Ferritin Total Bilirubin Direct Bilirubin AST ALT Alkaline Phosphatase Total Creatine Kinase 802574 H CK-MB (CK-2) Troponin T C-Reactive Protein Serum Total Protein Total Protein Albumin Dfeoa-5-Rtinttgyg Kyhhj-6-Mqhlphhkb PEP Interpretation Triglycerides LDL Cholesterol Direct HDL Cholesterol Free T4 PTH Intact Urine WBC (Auto) Urine Creatinine Salicylates Acetaminophen Crossmatch 03/18/19 03/18/19 03/19/19 18:20 23:39 01:42 WBC RBC Hgb Hct MCV MCH MCHC RDW Plt Count Lymph % (Auto) Craig % (Auto) Eos % (Auto) Lymph # Craig # Eos # Seg Neutrophils % Seg Neuts % (Manual) Lymphocytes % (Manual) Monocytes % (Manual) Eosinophils % (Manual) Nucleated RBC % Seg Neutrophils # Seg Neutrophils # Man Lymphocytes # (Manual) Monocytes # (Manual) Eosinophils # (Manual) PT INR D-Dimer Heparin Anti-Xa Level POC ABG pH 7.345 L ABG pH 7.285 L POC ABG pCO2 POC ABG pO2 59 L ABG pO2 44.0 L ABG HCO3 ABG O2 Saturation 70.9 L ABG Base Excess -5.7 L ABG Hemoglobin 11.9 L Oxyhemoglobin 69.6 L Sodium Potassium Chloride Carbon Dioxide BUN Creatinine Glucose POC Glucose 152 H Lactic Acid Calcium Ionized Calcium Phosphorus Magnesium Iron TIBC Ferritin Total Bilirubin Direct Bilirubin AST ALT Alkaline Phosphatase Total Creatine Kinase CK-MB (CK-2) Troponin T C-Reactive Protein Serum Total Protein Total Protein Albumin Uymra-6-Fkmukqyha Vxlng-6-Ijrrwrhix PEP Interpretation Triglycerides LDL Cholesterol Direct HDL Cholesterol Free T4 PTH Intact Urine WBC (Auto) Urine Creatinine Salicylates Acetaminophen Crossmatch 03/19/19 03/19/19 03/19/19 04:00 04:00 05:35 WBC 36.5 H RBC Hgb Hct MCV MCH MCHC RDW 15.8 H Plt Count 35 L Lymph % (Auto) Craig % (Auto) Eos % (Auto) Lymph # Craig # Eos # Seg Neutrophils % Seg Neuts % (Manual) Lymphocytes % (Manual) Monocytes % (Manual) Eosinophils % (Manual) Nucleated RBC % Seg Neutrophils # Seg Neutrophils # Man Lymphocytes # (Manual) Monocytes # (Manual) Eosinophils # (Manual) PT INR D-Dimer Heparin Anti-Xa Level POC ABG pH ABG pH 7.265 L POC ABG pCO2 POC ABG pO2 ABG pO2 35.4 L* ABG HCO3 ABG O2 Saturation 54.4 L ABG Base Excess -6.7 L ABG Hemoglobin 12.9 L Oxyhemoglobin 53.4 L Sodium 132 L Potassium 5.7 H Chloride 89.8 L Carbon Dioxide 19 L BUN 62 H Creatinine 6.4 H Glucose 151 H POC Glucose Lactic Acid Calcium 5.2 L* D Ionized Calcium Phosphorus Magnesium Iron TIBC Ferritin Total Bilirubin 7.80 H Direct Bilirubin AST 682 H ALT 130 H Alkaline Phosphatase 167 H Total Creatine Kinase CK-MB (CK-2) Troponin T C-Reactive Protein Serum Total Protein Total Protein 4.8 L Albumin 2.3 L Oiuol-7-Dporyalhf Phlfp-9-Khicoyxvc PEP Interpretation Triglycerides LDL Cholesterol Direct HDL Cholesterol Free T4 PTH Intact Urine WBC (Auto) Urine Creatinine Salicylates Acetaminophen Crossmatch 03/19/19 03/19/19 03/19/19 05:49 09:16 09:50 WBC RBC Hgb Hct MCV MCH MCHC RDW Plt Count Lymph % (Auto) Craig % (Auto) Eos % (Auto) Lymph # Craig # Eos # Seg Neutrophils % Seg Neuts % (Manual) Lymphocytes % (Manual) Monocytes % (Manual) Eosinophils % (Manual) Nucleated RBC % Seg Neutrophils # Seg Neutrophils # Man Lymphocytes # (Manual) Monocytes # (Manual) Eosinophils # (Manual) PT INR D-Dimer Heparin Anti-Xa Level POC ABG pH 7.222 L ABG pH POC ABG pCO2 56.6 H POC ABG pO2 ABG pO2 ABG HCO3 ABG O2 Saturation ABG Base Excess ABG Hemoglobin Oxyhemoglobin Sodium Potassium Chloride Carbon Dioxide BUN Creatinine Glucose POC Glucose 154 H Lactic Acid 2.70 H* Calcium Ionized Calcium Phosphorus Magnesium Iron TIBC Ferritin Total Bilirubin Direct Bilirubin AST ALT Alkaline Phosphatase Total Creatine Kinase CK-MB (CK-2) Troponin T C-Reactive Protein Serum Total Protein Total Protein Albumin Phmzo-6-Jcxigwauo Lmjcy-2-Hjnyfkzfi PEP Interpretation Triglycerides LDL Cholesterol Direct HDL Cholesterol Free T4 PTH Intact Urine WBC (Auto) Urine Creatinine Salicylates Acetaminophen Crossmatch 03/19/19 03/19/19 03/19/19 09:50 11:28 17:58 WBC RBC Hgb Hct MCV MCH MCHC RDW Plt Count Lymph % (Auto) Craig % (Auto) Eos % (Auto) Lymph # Craig # Eos # Seg Neutrophils % Seg Neuts % (Manual) Lymphocytes % (Manual) Monocytes % (Manual) Eosinophils % (Manual) Nucleated RBC % Seg Neutrophils # Seg Neutrophils # Man Lymphocytes # (Manual) Monocytes # (Manual) Eosinophils # (Manual) PT INR D-Dimer Heparin Anti-Xa Level POC ABG pH 7.250 L ABG pH POC ABG pCO2 52.6 H POC ABG pO2 ABG pO2 ABG HCO3 ABG O2 Saturation ABG Base Excess ABG Hemoglobin Oxyhemoglobin Sodium Potassium Chloride Carbon Dioxide BUN Creatinine Glucose POC Glucose 160 H Lactic Acid Calcium Ionized Calcium Phosphorus Magnesium Iron TIBC Ferritin Total Bilirubin Direct Bilirubin AST ALT Alkaline Phosphatase Total Creatine Kinase 75251 H CK-MB (CK-2) Troponin T C-Reactive Protein Serum Total Protein Total Protein Albumin Koubq-6-Wfoajftol Vldqv-1-Yzaammtbu PEP Interpretation Triglycerides LDL Cholesterol Direct HDL Cholesterol Free T4 PTH Intact Urine WBC (Auto) Urine Creatinine Salicylates Acetaminophen Crossmatch 03/19/19 03/19/19 03/20/19 19:48 21:03 02:16 WBC RBC Hgb Hct MCV MCH MCHC RDW Plt Count Lymph % (Auto) Craig % (Auto) Eos % (Auto) Lymph # Craig # Eos # Seg Neutrophils % Seg Neuts % (Manual) Lymphocytes % (Manual) Monocytes % (Manual) Eosinophils % (Manual) Nucleated RBC % Seg Neutrophils # Seg Neutrophils # Man Lymphocytes # (Manual) Monocytes # (Manual) Eosinophils # (Manual) PT INR D-Dimer Heparin Anti-Xa Level POC ABG pH 7.279 L ABG pH POC ABG pCO2 50.3 H POC ABG pO2 129 H ABG pO2 ABG HCO3 ABG O2 Saturation ABG Base Excess ABG Hemoglobin Oxyhemoglobin Sodium Potassium Chloride Carbon Dioxide BUN Creatinine Glucose POC Glucose 119 H 119 H Lactic Acid Calcium Ionized Calcium Phosphorus Magnesium Iron TIBC Ferritin Total Bilirubin Direct Bilirubin AST ALT Alkaline Phosphatase Total Creatine Kinase CK-MB (CK-2) Troponin T C-Reactive Protein Serum Total Protein Total Protein Albumin Jeehc-1-Dgcmmmocx Xrhon-2-Nnawwporx PEP Interpretation Triglycerides LDL Cholesterol Direct HDL Cholesterol Free T4 PTH Intact Urine WBC (Auto) Urine Creatinine Salicylates Acetaminophen Crossmatch 03/20/19 03/20/19 03/20/19 04:23 05:05 09:30 WBC 36.3 H RBC Hgb Hct MCV MCH MCHC RDW 15.5 H Plt Count 29 L Lymph % (Auto) Craig % (Auto) Eos % (Auto) Lymph # Craig # Eos # Seg Neutrophils % Seg Neuts % (Manual) Lymphocytes % (Manual) Monocytes % (Manual) Eosinophils % (Manual) Nucleated RBC % Seg Neutrophils # Seg Neutrophils # Man Lymphocytes # (Manual) Monocytes # (Manual) Eosinophils # (Manual) PT INR D-Dimer Heparin Anti-Xa Level POC ABG pH ABG pH POC ABG pCO2 POC ABG pO2 280 H ABG pO2 ABG HCO3 ABG O2 Saturation ABG Base Excess ABG Hemoglobin Oxyhemoglobin Sodium Potassium Chloride Carbon Dioxide BUN Creatinine Glucose POC Glucose 115 H Lactic Acid Calcium Ionized Calcium Phosphorus Magnesium Iron TIBC Ferritin Total Bilirubin Direct Bilirubin AST ALT Alkaline Phosphatase Total Creatine Kinase CK-MB (CK-2) Troponin T C-Reactive Protein Serum Total Protein Total Protein Albumin Btuak-7-Mevpljujx Fmgfo-2-Utlpssvah PEP Interpretation Triglycerides LDL Cholesterol Direct HDL Cholesterol Free T4 PTH Intact Urine WBC (Auto) Urine Creatinine Salicylates Acetaminophen Crossmatch 03/20/19 03/20/19 03/20/19 09:30 09:30 11:34 WBC RBC Hgb Hct MCV MCH MCHC RDW Plt Count Lymph % (Auto) Craig % (Auto) Eos % (Auto) Lymph # Craig # Eos # Seg Neutrophils % Seg Neuts % (Manual) Lymphocytes % (Manual) Monocytes % (Manual) Eosinophils % (Manual) Nucleated RBC % Seg Neutrophils # Seg Neutrophils # Man Lymphocytes # (Manual) Monocytes # (Manual) Eosinophils # (Manual) PT INR D-Dimer Heparin Anti-Xa Level POC ABG pH ABG pH POC ABG pCO2 POC ABG pO2 ABG pO2 ABG HCO3 ABG O2 Saturation ABG Base Excess ABG Hemoglobin Oxyhemoglobin Sodium 131 L Potassium Chloride 92.3 L Carbon Dioxide 20 L BUN 68 H Creatinine 6.1 H Glucose 164 H POC Glucose 141 H Lactic Acid Calcium 5.3 L* Ionized Calcium Phosphorus Magnesium Iron TIBC Ferritin Total Bilirubin 9.50 H Direct Bilirubin AST 381 H ALT 116 H Alkaline Phosphatase 255 H Total Creatine Kinase 97503 H CK-MB (CK-2) Troponin T C-Reactive Protein Serum Total Protein Total Protein 5.1 L Albumin 2.3 L Nmrat-7-Hccymfcce Pgtba-1-Cbcsrgwvb PEP Interpretation Triglycerides LDL Cholesterol Direct HDL Cholesterol Free T4 PTH Intact Urine WBC (Auto) Urine Creatinine Salicylates Acetaminophen Crossmatch 03/20/19 03/20/19 03/20/19 14:41 14:45 18:50 WBC RBC Hgb Hct MCV MCH MCHC RDW Plt Count Lymph % (Auto) Craig % (Auto) Eos % (Auto) Lymph # Craig # Eos # Seg Neutrophils % Seg Neuts % (Manual) Lymphocytes % (Manual) Monocytes % (Manual) Eosinophils % (Manual) Nucleated RBC % Seg Neutrophils # Seg Neutrophils # Man Lymphocytes # (Manual) Monocytes # (Manual) Eosinophils # (Manual) PT INR D-Dimer Heparin Anti-Xa Level POC ABG pH ABG pH POC ABG pCO2 POC ABG pO2 ABG pO2 ABG HCO3 ABG O2 Saturation ABG Base Excess ABG Hemoglobin Oxyhemoglobin Sodium Potassium Chloride Carbon Dioxide BUN Creatinine Glucose POC Glucose 117 H Lactic Acid 2.90 H* Calcium Ionized Calcium Phosphorus Magnesium Iron TIBC Ferritin Total Bilirubin Direct Bilirubin AST ALT Alkaline Phosphatase Total Creatine Kinase CK-MB (CK-2) Troponin T C-Reactive Protein 13.30 H Serum Total Protein Total Protein Albumin Noieh-7-Acyjlxztn Zmdnb-1-Oxururlgw PEP Interpretation Triglycerides LDL Cholesterol Direct HDL Cholesterol Free T4 PTH Intact Urine WBC (Auto) Urine Creatinine Salicylates Acetaminophen Crossmatch 03/20/19 03/21/19 03/21/19 21:55 04:26 04:26 WBC 37.8 H RBC Hgb Hct MCV MCH MCHC RDW 15.4 H Plt Count 36 L Lymph % (Auto) Craig % (Auto) Eos % (Auto) Lymph # Craig # Eos # Seg Neutrophils % Seg Neuts % (Manual) 93.0 H Lymphocytes % (Manual) 3.0 L Monocytes % (Manual) Eosinophils % (Manual) Nucleated RBC % 1.0 H Seg Neutrophils # 34.6 H Seg Neutrophils # Man 35.2 H Lymphocytes # (Manual) 1.1 L Monocytes # (Manual) Eosinophils # (Manual) PT INR D-Dimer Heparin Anti-Xa Level POC ABG pH ABG pH POC ABG pCO2 POC ABG pO2 ABG pO2 ABG HCO3 ABG O2 Saturation ABG Base Excess ABG Hemoglobin Oxyhemoglobin Sodium 131 L Potassium Chloride 90.7 L Carbon Dioxide 21 L BUN 69 H Creatinine 5.7 H Glucose 170 H POC Glucose 128 H Lactic Acid Calcium 6.1 L D Ionized Calcium Phosphorus Magnesium Iron TIBC Ferritin Total Bilirubin 9.50 H Direct Bilirubin AST 308 H ALT 124 H Alkaline Phosphatase 327 H Total Creatine Kinase 85529 H CK-MB (CK-2) Troponin T C-Reactive Protein Serum Total Protein Total Protein 5.7 L Albumin 2.6 L Jasli-5-Zjwfakkjg Hlkyl-0-Xfnggdmww PEP Interpretation Triglycerides LDL Cholesterol Direct HDL Cholesterol Free T4 PTH Intact Urine WBC (Auto) Urine Creatinine Salicylates Acetaminophen Crossmatch 03/21/19 03/21/19 03/21/19 05:17 05:39 08:29 WBC RBC Hgb Hct MCV MCH MCHC RDW Plt Count Lymph % (Auto) Craig % (Auto) Eos % (Auto) Lymph # Craig # Eos # Seg Neutrophils % Seg Neuts % (Manual) Lymphocytes % (Manual) Monocytes % (Manual) Eosinophils % (Manual) Nucleated RBC % Seg Neutrophils # Seg Neutrophils # Man Lymphocytes # (Manual) Monocytes # (Manual) Eosinophils # (Manual) PT INR D-Dimer Heparin Anti-Xa Level POC ABG pH ABG pH POC ABG pCO2 POC ABG pO2 209 H ABG pO2 ABG HCO3 ABG O2 Saturation ABG Base Excess ABG Hemoglobin Oxyhemoglobin Sodium Potassium Chloride Carbon Dioxide BUN Creatinine Glucose POC Glucose 145 H Lactic Acid Calcium Ionized Calcium Phosphorus Magnesium Iron TIBC Ferritin Total Bilirubin Direct Bilirubin AST ALT Alkaline Phosphatase Total Creatine Kinase 21606 H CK-MB (CK-2) Troponin T C-Reactive Protein Serum Total Protein Total Protein Albumin Ycudw-8-Zrcexhqdp Mgdsc-6-Axdujqbmv PEP Interpretation Triglycerides LDL Cholesterol Direct HDL Cholesterol Free T4 PTH Intact Urine WBC (Auto) Urine Creatinine Salicylates Acetaminophen Crossmatch 03/21/19 03/21/19 03/21/19 08:29 11:43 12:00 WBC RBC Hgb Hct MCV MCH MCHC RDW Plt Count Lymph % (Auto) Craig % (Auto) Eos % (Auto) Lymph # Craig # Eos # Seg Neutrophils % Seg Neuts % (Manual) Lymphocytes % (Manual) Monocytes % (Manual) Eosinophils % (Manual) Nucleated RBC % Seg Neutrophils # Seg Neutrophils # Man Lymphocytes # (Manual) Monocytes # (Manual) Eosinophils # (Manual) PT INR D-Dimer Heparin Anti-Xa Level POC ABG pH ABG pH POC ABG pCO2 POC ABG pO2 ABG pO2 ABG HCO3 ABG O2 Saturation ABG Base Excess ABG Hemoglobin Oxyhemoglobin Sodium Potassium Chloride Carbon Dioxide BUN Creatinine Glucose POC Glucose 123 H Lactic Acid 2.60 H* 2.20 H* Calcium Ionized Calcium Phosphorus Magnesium Iron TIBC Ferritin Total Bilirubin Direct Bilirubin AST ALT Alkaline Phosphatase Total Creatine Kinase CK-MB (CK-2) Troponin T C-Reactive Protein Serum Total Protein Total Protein Albumin Pxhec-9-Crzpzcudh Qecnx-4-Wksbutkox PEP Interpretation Triglycerides LDL Cholesterol Direct HDL Cholesterol Free T4 PTH Intact Urine WBC (Auto) Urine Creatinine Salicylates Acetaminophen Crossmatch 03/21/19 03/21/19 03/21/19 14:11 18:28 19:32 WBC RBC Hgb Hct MCV MCH MCHC RDW Plt Count Lymph % (Auto) Craig % (Auto) Eos % (Auto) Lymph # Craig # Eos # Seg Neutrophils % Seg Neuts % (Manual) Lymphocytes % (Manual) Monocytes % (Manual) Eosinophils % (Manual) Nucleated RBC % Seg Neutrophils # Seg Neutrophils # Man Lymphocytes # (Manual) Monocytes # (Manual) Eosinophils # (Manual) PT INR D-Dimer Heparin Anti-Xa Level POC ABG pH 7.293 L ABG pH POC ABG pCO2 POC ABG pO2 ABG pO2 ABG HCO3 ABG O2 Saturation ABG Base Excess ABG Hemoglobin Oxyhemoglobin Sodium Potassium Chloride Carbon Dioxide BUN Creatinine Glucose POC Glucose 153 H Lactic Acid 2.10 H* Calcium Ionized Calcium Phosphorus Magnesium Iron TIBC Ferritin Total Bilirubin Direct Bilirubin AST ALT Alkaline Phosphatase Total Creatine Kinase CK-MB (CK-2) Troponin T C-Reactive Protein Serum Total Protein Total Protein Albumin Jrwkc-6-Korftotdz Mwcbd-4-Nyeccjjot PEP Interpretation Triglycerides LDL Cholesterol Direct HDL Cholesterol Free T4 PTH Intact Urine WBC (Auto) Urine Creatinine Salicylates Acetaminophen Crossmatch 03/21/19 03/22/19 03/22/19 23:38 05:08 05:51 WBC RBC Hgb Hct MCV MCH MCHC RDW Plt Count Lymph % (Auto) Craig % (Auto) Eos % (Auto) Lymph # Craig # Eos # Seg Neutrophils % Seg Neuts % (Manual) Lymphocytes % (Manual) Monocytes % (Manual) Eosinophils % (Manual) Nucleated RBC % Seg Neutrophils # Seg Neutrophils # Man Lymphocytes # (Manual) Monocytes # (Manual) Eosinophils # (Manual) PT INR D-Dimer Heparin Anti-Xa Level POC ABG pH 7.283 L ABG pH POC ABG pCO2 POC ABG pO2 53 L ABG pO2 ABG HCO3 ABG O2 Saturation ABG Base Excess ABG Hemoglobin Oxyhemoglobin Sodium Potassium Chloride Carbon Dioxide BUN Creatinine Glucose POC Glucose 149 H 131 H Lactic Acid Calcium Ionized Calcium Phosphorus Magnesium Iron TIBC Ferritin Total Bilirubin Direct Bilirubin AST ALT Alkaline Phosphatase Total Creatine Kinase CK-MB (CK-2) Troponin T C-Reactive Protein Serum Total Protein Total Protein Albumin Jdbcc-1-Dweuojwpk Jlrsy-7-Toezqfyzd PEP Interpretation Triglycerides LDL Cholesterol Direct HDL Cholesterol Free T4 PTH Intact Urine WBC (Auto) Urine Creatinine Salicylates Acetaminophen Crossmatch 03/22/19 03/22/19 03/22/19 08:00 08:00 18:19 WBC 36.7 H RBC Hgb 11.0 L Hct 33.5 L MCV MCH MCHC RDW 15.5 H Plt Count 43 L Lymph % (Auto) Craig % (Auto) Eos % (Auto) Lymph # Craig # Eos # Seg Neutrophils % Seg Neuts % (Manual) 87.0 H Lymphocytes % (Manual) 7.0 L Monocytes % (Manual) Eosinophils % (Manual) Nucleated RBC % Seg Neutrophils # Seg Neutrophils # Man 31.9 H Lymphocytes # (Manual) Monocytes # (Manual) Eosinophils # (Manual) PT INR D-Dimer Heparin Anti-Xa Level POC ABG pH ABG pH POC ABG pCO2 46.4 H POC ABG pO2 108 H ABG pO2 ABG HCO3 ABG O2 Saturation ABG Base Excess ABG Hemoglobin Oxyhemoglobin Sodium 132 L Potassium 5.6 H Chloride 89.6 L Carbon Dioxide 20 L BUN 101 H Creatinine 7.4 H Glucose 124 H POC Glucose Lactic Acid Calcium 5.2 L* Ionized Calcium Phosphorus Magnesium Iron TIBC Ferritin Total Bilirubin 2.80 H Direct Bilirubin AST 119 H ALT 86 H Alkaline Phosphatase 245 H Total Creatine Kinase CK-MB (CK-2) Troponin T C-Reactive Protein Serum Total Protein Total Protein 5.6 L Albumin 2.5 L Vtfue-1-Ynnmsqrbw Wtefa-0-Emotawfey PEP Interpretation Triglycerides LDL Cholesterol Direct HDL Cholesterol Free T4 PTH Intact Urine WBC (Auto) Urine Creatinine Salicylates Acetaminophen Crossmatch 03/22/19 03/23/19 03/23/19 20:37 04:49 05:28 WBC 35.9 H RBC Hgb 10.8 L Hct 33.2 L MCV MCH MCHC RDW 15.5 H Plt Count 49 L Lymph % (Auto) Craig % (Auto) Eos % (Auto) Lymph # Craig # Eos # Seg Neutrophils % Seg Neuts % (Manual) 81.0 H Lymphocytes % (Manual) 3.5 L Monocytes % (Manual) Eosinophils % (Manual) Nucleated RBC % Seg Neutrophils # Seg Neutrophils # Man 29.1 H Lymphocytes # (Manual) Monocytes # (Manual) 1.4 H Eosinophils # (Manual) PT INR D-Dimer Heparin Anti-Xa Level POC ABG pH 7.296 L ABG pH POC ABG pCO2 46.2 H POC ABG pO2 ABG pO2 ABG HCO3 ABG O2 Saturation ABG Base Excess ABG Hemoglobin Oxyhemoglobin Sodium 129 L Potassium 5.2 H Chloride 91.1 L Carbon Dioxide BUN 91 H Creatinine 6.6 H Glucose 190 H POC Glucose Lactic Acid Calcium 5.3 L* Ionized Calcium Phosphorus Magnesium Iron TIBC Ferritin Total Bilirubin 1.80 H Direct Bilirubin AST 80 H ALT 62 H Alkaline Phosphatase 209 H Total Creatine Kinase 9758 H CK-MB (CK-2) Troponin T C-Reactive Protein Serum Total Protein Total Protein 5.2 L Albumin 2.2 L Puoge-2-Rrgajpdgt Iumym-0-Smmdaiwdn PEP Interpretation Triglycerides LDL Cholesterol Direct HDL Cholesterol Free T4 PTH Intact Urine WBC (Auto) Urine Creatinine Salicylates Acetaminophen Crossmatch 03/23/19 03/23/19 03/23/19 05:28 05:31 11:33 WBC 29.7 H RBC 3.59 L Hgb 10.1 L Hct 31.1 L MCV MCH MCHC RDW 15.4 H Plt Count 47 L Lymph % (Auto) Craig % (Auto) Eos % (Auto) Lymph # Craig # Eos # Seg Neutrophils % Seg Neuts % (Manual) 89.0 H Lymphocytes % (Manual) 6.0 L Monocytes % (Manual) Eosinophils % (Manual) Nucleated RBC % 1.0 H Seg Neutrophils # Seg Neutrophils # Man 26.4 H Lymphocytes # (Manual) Monocytes # (Manual) Eosinophils # (Manual) PT INR D-Dimer Heparin Anti-Xa Level POC ABG pH ABG pH POC ABG pCO2 POC ABG pO2 ABG pO2 ABG HCO3 ABG O2 Saturation ABG Base Excess ABG Hemoglobin Oxyhemoglobin Sodium Potassium Chloride Carbon Dioxide BUN Creatinine Glucose POC Glucose 122 H 113 H Lactic Acid Calcium Ionized Calcium Phosphorus Magnesium Iron TIBC Ferritin Total Bilirubin Direct Bilirubin AST ALT Alkaline Phosphatase Total Creatine Kinase CK-MB (CK-2) Troponin T C-Reactive Protein Serum Total Protein Total Protein Albumin Xompf-4-Eogzoofod Uacxb-5-Zoyeboltp PEP Interpretation Triglycerides LDL Cholesterol Direct HDL Cholesterol Free T4 PTH Intact Urine WBC (Auto) Urine Creatinine Salicylates Acetaminophen Crossmatch 03/23/19 03/24/19 03/24/19 17:47 00:00 04:50 WBC 35.0 H RBC Hgb 10.4 L Hct 32.4 L MCV MCH MCHC RDW Plt Count 60 L Lymph % (Auto) Craig % (Auto) Eos % (Auto) Lymph # Craig # Eos # Seg Neutrophils % Seg Neuts % (Manual) 93.0 H Lymphocytes % (Manual) 5.0 L Monocytes % (Manual) Eosinophils % (Manual) Nucleated RBC % 7.0 H Seg Neutrophils # Seg Neutrophils # Man 32.6 H Lymphocytes # (Manual) Monocytes # (Manual) Eosinophils # (Manual) PT INR D-Dimer Heparin Anti-Xa Level POC ABG pH ABG pH POC ABG pCO2 POC ABG pO2 ABG pO2 ABG HCO3 ABG O2 Saturation ABG Base Excess ABG Hemoglobin Oxyhemoglobin Sodium Potassium Chloride Carbon Dioxide BUN Creatinine Glucose POC Glucose 111 H 108 H Lactic Acid Calcium Ionized Calcium Phosphorus Magnesium Iron TIBC Ferritin Total Bilirubin Direct Bilirubin AST ALT Alkaline Phosphatase Total Creatine Kinase CK-MB (CK-2) Troponin T C-Reactive Protein Serum Total Protein Total Protein Albumin Hnykq-6-Shlujryve Qmopu-1-Jixftgcrf PEP Interpretation Triglycerides LDL Cholesterol Direct HDL Cholesterol Free T4 PTH Intact Urine WBC (Auto) Urine Creatinine Salicylates Acetaminophen Crossmatch 03/24/19 03/24/19 03/24/19 04:50 05:06 12:55 WBC RBC Hgb Hct MCV MCH MCHC RDW Plt Count Lymph % (Auto) Craig % (Auto) Eos % (Auto) Lymph # Craig # Eos # Seg Neutrophils % Seg Neuts % (Manual) Lymphocytes % (Manual) Monocytes % (Manual) Eosinophils % (Manual) Nucleated RBC % Seg Neutrophils # Seg Neutrophils # Man Lymphocytes # (Manual) Monocytes # (Manual) Eosinophils # (Manual) PT INR D-Dimer Heparin Anti-Xa Level POC ABG pH ABG pH POC ABG pCO2 POC ABG pO2 ABG pO2 ABG HCO3 ABG O2 Saturation ABG Base Excess ABG Hemoglobin Oxyhemoglobin Sodium 134 L Potassium 5.1 H Chloride 95.3 L Carbon Dioxide 21 L BUN 85 H Creatinine 6.4 H Glucose 109 H POC Glucose 112 H 110 H Lactic Acid Calcium 5.8 L* Ionized Calcium Phosphorus Magnesium Iron TIBC Ferritin Total Bilirubin Direct Bilirubin AST ALT Alkaline Phosphatase Total Creatine Kinase 5747 H CK-MB (CK-2) Troponin T C-Reactive Protein Serum Total Protein Total Protein Albumin Ecrxn-2-Npuzxufni Kohji-2-Xoahqxptg PEP Interpretation Triglycerides LDL Cholesterol Direct HDL Cholesterol Free T4 PTH Intact Urine WBC (Auto) Urine Creatinine Salicylates Acetaminophen Crossmatch 03/24/19 03/25/19 03/25/19 23:29 05:00 05:00 WBC RBC Hgb Hct MCV MCH MCHC RDW Plt Count Lymph % (Auto) Craig % (Auto) Eos % (Auto) Lymph # Craig # Eos # Seg Neutrophils % Seg Neuts % (Manual) Lymphocytes % (Manual) Monocytes % (Manual) Eosinophils % (Manual) Nucleated RBC % Seg Neutrophils # Seg Neutrophils # Man Lymphocytes # (Manual) Monocytes # (Manual) Eosinophils # (Manual) PT INR D-Dimer Heparin Anti-Xa Level POC ABG pH ABG pH POC ABG pCO2 POC ABG pO2 ABG pO2 ABG HCO3 ABG O2 Saturation ABG Base Excess ABG Hemoglobin Oxyhemoglobin Sodium 133 L Potassium Chloride 94.0 L Carbon Dioxide 21 L BUN 81 H Creatinine 6.4 H Glucose POC Glucose 109 H Lactic Acid Calcium 5.5 L* Ionized Calcium Phosphorus Magnesium Iron TIBC Ferritin Total Bilirubin Direct Bilirubin AST 80 H ALT Alkaline Phosphatase 202 H Total Creatine Kinase 3589 H CK-MB (CK-2) Troponin T C-Reactive Protein Serum Total Protein Total Protein 5.3 L Albumin 2.4 L Spjdk-0-Tzmermler Yslig-0-Xtluytyla PEP Interpretation Triglycerides LDL Cholesterol Direct HDL Cholesterol Free T4 PTH Intact 329.9 H Urine WBC (Auto) Urine Creatinine Salicylates Acetaminophen Crossmatch 03/25/19 03/25/19 03/26/19 05:00 06:30 04:30 WBC 23.3 H RBC 3.61 L Hgb 10.2 L Hct 31.2 L MCV MCH MCHC RDW Plt Count 57 L Lymph % (Auto) Craig % (Auto) Eos % (Auto) Lymph # Craig # Eos # Seg Neutrophils % Seg Neuts % (Manual) 92.0 H Lymphocytes % (Manual) 6.0 L Monocytes % (Manual) Eosinophils % (Manual) Nucleated RBC % Seg Neutrophils # Seg Neutrophils # Man 21.4 H Lymphocytes # (Manual) Monocytes # (Manual) Eosinophils # (Manual) PT INR D-Dimer Heparin Anti-Xa Level POC ABG pH ABG pH 7.326 L POC ABG pCO2 POC ABG pO2 ABG pO2 109.5 H 137.4 H ABG HCO3 18.8 L 18.6 L ABG O2 Saturation ABG Base Excess -4.4 L -6.8 L ABG Hemoglobin 10.1 L 9.9 L Oxyhemoglobin Sodium Potassium Chloride Carbon Dioxide BUN Creatinine Glucose POC Glucose Lactic Acid Calcium Ionized Calcium Phosphorus Magnesium Iron TIBC Ferritin Total Bilirubin Direct Bilirubin AST ALT Alkaline Phosphatase Total Creatine Kinase CK-MB (CK-2) Troponin T C-Reactive Protein Serum Total Protein Total Protein Albumin Icpco-7-Wxuswkflz Mxono-6-Ksvyldbmv PEP Interpretation Triglycerides LDL Cholesterol Direct HDL Cholesterol Free T4 PTH Intact Urine WBC (Auto) Urine Creatinine Salicylates Acetaminophen Crossmatch 03/26/19 03/26/19 03/26/19 23:22 Unknown Unknown WBC 19.5 H RBC 3.44 L Hgb 9.8 L Hct 29.9 L MCV MCH MCHC RDW Plt Count 85 L Lymph % (Auto) Craig % (Auto) Eos % (Auto) Lymph # Craig # Eos # Seg Neutrophils % Seg Neuts % (Manual) 95.0 H Lymphocytes % (Manual) 3.0 L Monocytes % (Manual) Eosinophils % (Manual) Nucleated RBC % Seg Neutrophils # Seg Neutrophils # Man 18.5 H Lymphocytes # (Manual) 0.6 L Monocytes # (Manual) Eosinophils # (Manual) PT INR D-Dimer Heparin Anti-Xa Level POC ABG pH ABG pH POC ABG pCO2 POC ABG pO2 ABG pO2 ABG HCO3 ABG O2 Saturation ABG Base Excess ABG Hemoglobin Oxyhemoglobin Sodium 135 L Potassium 5.2 H D Chloride 92.2 L Carbon Dioxide 18 L BUN 109 H Creatinine 8.5 H Glucose 117 H POC Glucose 69 L Lactic Acid Calcium 4.5 L* D Ionized Calcium Phosphorus Magnesium Iron TIBC Ferritin Total Bilirubin Direct Bilirubin AST ALT Alkaline Phosphatase Total Creatine Kinase 4527 H CK-MB (CK-2) Troponin T C-Reactive Protein Serum Total Protein Total Protein Albumin Vhmkf-2-Wktexwuvc Cfmwa-5-Idelvfnvs PEP Interpretation Triglycerides LDL Cholesterol Direct HDL Cholesterol Free T4 PTH Intact Urine WBC (Auto) Urine Creatinine Salicylates Acetaminophen Crossmatch 03/27/19 03/27/19 03/27/19 04:30 04:30 09:00 WBC 19.2 H RBC 3.42 L Hgb 9.9 L Hct 30.0 L MCV MCH MCHC RDW Plt Count 84 L Lymph % (Auto) Craig % (Auto) Eos % (Auto) Lymph # Craig # Eos # Seg Neutrophils % Seg Neuts % (Manual) Lymphocytes % (Manual) Monocytes % (Manual) Eosinophils % (Manual) Nucleated RBC % Seg Neutrophils # Seg Neutrophils # Man Lymphocytes # (Manual) Monocytes # (Manual) Eosinophils # (Manual) PT INR D-Dimer Heparin Anti-Xa Level POC ABG pH ABG pH POC ABG pCO2 POC ABG pO2 ABG pO2 ABG HCO3 ABG O2 Saturation ABG Base Excess ABG Hemoglobin Oxyhemoglobin Sodium 135 L Potassium Chloride 93.5 L Carbon Dioxide BUN 84 H Creatinine 7.1 H Glucose POC Glucose Lactic Acid Calcium 5.0 L* Ionized Calcium Phosphorus Magnesium Iron TIBC Ferritin Total Bilirubin Direct Bilirubin AST 78 H ALT Alkaline Phosphatase 135 H Total Creatine Kinase 4677 H CK-MB (CK-2) Troponin T C-Reactive Protein Serum Total Protein Total Protein 4.8 L Albumin 2.3 L Bvygm-9-Fqxqisedb Hdhav-2-Elrqyxpjq PEP Interpretation Triglycerides 409 H LDL Cholesterol Direct HDL Cholesterol Free T4 PTH Intact Urine WBC (Auto) Urine Creatinine Salicylates Acetaminophen Crossmatch 03/27/19 03/27/19 03/27/19 12:37 14:15 14:15 WBC RBC Hgb 9.7 L Hct 29.5 L MCV MCH MCHC RDW Plt Count 87 L Lymph % (Auto) Craig % (Auto) Eos % (Auto) Lymph # Craig # Eos # Seg Neutrophils % Seg Neuts % (Manual) Lymphocytes % (Manual) Monocytes % (Manual) Eosinophils % (Manual) Nucleated RBC % Seg Neutrophils # Seg Neutrophils # Man Lymphocytes # (Manual) Monocytes # (Manual) Eosinophils # (Manual) PT 15.9 H INR 1.30 H D-Dimer Heparin Anti-Xa Level POC ABG pH ABG pH POC ABG pCO2 POC ABG pO2 ABG pO2 ABG HCO3 ABG O2 Saturation ABG Base Excess ABG Hemoglobin Oxyhemoglobin Sodium Potassium Chloride Carbon Dioxide BUN Creatinine Glucose POC Glucose 129 H Lactic Acid Calcium Ionized Calcium Phosphorus Magnesium Iron TIBC Ferritin Total Bilirubin Direct Bilirubin AST ALT Alkaline Phosphatase Total Creatine Kinase CK-MB (CK-2) Troponin T C-Reactive Protein Serum Total Protein Total Protein Albumin Twslk-9-Ocpmrlhfw Yagom-3-Wkzzpjxse PEP Interpretation Triglycerides LDL Cholesterol Direct HDL Cholesterol Free T4 PTH Intact Urine WBC (Auto) Urine Creatinine Salicylates Acetaminophen Crossmatch 03/27/19 03/27/19 03/27/19 18:00 19:22 19:23 WBC RBC Hgb Hct MCV MCH MCHC RDW Plt Count Lymph % (Auto) Craig % (Auto) Eos % (Auto) Lymph # Craig # Eos # Seg Neutrophils % Seg Neuts % (Manual) Lymphocytes % (Manual) Monocytes % (Manual) Eosinophils % (Manual) Nucleated RBC % Seg Neutrophils # Seg Neutrophils # Man Lymphocytes # (Manual) Monocytes # (Manual) Eosinophils # (Manual) PT INR D-Dimer Heparin Anti-Xa Level < 0.10 L POC ABG pH ABG pH POC ABG pCO2 POC ABG pO2 ABG pO2 ABG HCO3 ABG O2 Saturation ABG Base Excess ABG Hemoglobin Oxyhemoglobin Sodium Potassium Chloride Carbon Dioxide BUN Creatinine Glucose POC Glucose 121 H Lactic Acid Calcium Ionized Calcium Phosphorus Magnesium Iron TIBC Ferritin Total Bilirubin Direct Bilirubin AST ALT Alkaline Phosphatase Total Creatine Kinase 4517 H CK-MB (CK-2) Troponin T C-Reactive Protein Serum Total Protein Total Protein Albumin Aciyi-8-Fshdphgvs Cmhha-1-Smlbdjysy PEP Interpretation Triglycerides LDL Cholesterol Direct HDL Cholesterol Free T4 PTH Intact Urine WBC (Auto) Urine Creatinine Salicylates Acetaminophen Crossmatch 03/27/19 03/27/19 03/28/19 22:10 23:52 03:49 WBC RBC Hgb Hct MCV MCH MCHC RDW Plt Count Lymph % (Auto) Craig % (Auto) Eos % (Auto) Lymph # Craig # Eos # Seg Neutrophils % Seg Neuts % (Manual) Lymphocytes % (Manual) Monocytes % (Manual) Eosinophils % (Manual) Nucleated RBC % Seg Neutrophils # Seg Neutrophils # Man Lymphocytes # (Manual) Monocytes # (Manual) Eosinophils # (Manual) PT INR D-Dimer Heparin Anti-Xa Level POC ABG pH 7.338 L ABG pH POC ABG pCO2 33.1 L POC ABG pO2 ABG pO2 ABG HCO3 ABG O2 Saturation ABG Base Excess ABG Hemoglobin Oxyhemoglobin Sodium Potassium Chloride Carbon Dioxide BUN Creatinine Glucose POC Glucose 113 H 117 H Lactic Acid Calcium Ionized Calcium Phosphorus Magnesium Iron TIBC Ferritin Total Bilirubin Direct Bilirubin AST ALT Alkaline Phosphatase Total Creatine Kinase CK-MB (CK-2) Troponin T C-Reactive Protein Serum Total Protein Total Protein Albumin Mawmd-2-Znzaynxnw Dxqmu-1-Ogbkxkmzu PEP Interpretation Triglycerides LDL Cholesterol Direct HDL Cholesterol Free T4 PTH Intact Urine WBC (Auto) Urine Creatinine Salicylates Acetaminophen Crossmatch 03/28/19 03/28/19 03/28/19 05:13 05:13 06:18 WBC RBC Hgb Hct MCV MCH MCHC RDW Plt Count Lymph % (Auto) Craig % (Auto) Eos % (Auto) Lymph # Craig # Eos # Seg Neutrophils % Seg Neuts % (Manual) Lymphocytes % (Manual) Monocytes % (Manual) Eosinophils % (Manual) Nucleated RBC % Seg Neutrophils # Seg Neutrophils # Man Lymphocytes # (Manual) Monocytes # (Manual) Eosinophils # (Manual) PT INR D-Dimer Heparin Anti-Xa Level 0.23 L POC ABG pH ABG pH POC ABG pCO2 POC ABG pO2 ABG pO2 ABG HCO3 ABG O2 Saturation ABG Base Excess ABG Hemoglobin Oxyhemoglobin Sodium 135 L Potassium 5.5 H D Chloride 95.1 L Carbon Dioxide 16 L D BUN 129 H Creatinine 9.3 H Glucose 158 H POC Glucose 202 H Lactic Acid Calcium 4.0 L* D Ionized Calcium Phosphorus 12.40 H Magnesium Iron TIBC Ferritin Total Bilirubin Direct Bilirubin AST ALT Alkaline Phosphatase Total Creatine Kinase 4266 H CK-MB (CK-2) Troponin T C-Reactive Protein Serum Total Protein Total Protein Albumin Wqrry-7-Uzxuwmkgt Zrkeo-7-Igvszqktg PEP Interpretation Triglycerides LDL Cholesterol Direct HDL Cholesterol Free T4 PTH Intact Urine WBC (Auto) Urine Creatinine Salicylates Acetaminophen Crossmatch 03/28/19 03/28/19 03/28/19 08:25 10:00 12:00 WBC RBC Hgb 4.9 L* D Hct 15.4 L* D MCV MCH MCHC RDW Plt Count Lymph % (Auto) Craig % (Auto) Eos % (Auto) Lymph # Craig # Eos # Seg Neutrophils % Seg Neuts % (Manual) Lymphocytes % (Manual) Monocytes % (Manual) Eosinophils % (Manual) Nucleated RBC % Seg Neutrophils # Seg Neutrophils # Man Lymphocytes # (Manual) Monocytes # (Manual) Eosinophils # (Manual) PT 17.9 H INR 1.52 H D-Dimer 4845.98 H Heparin Anti-Xa Level POC ABG pH ABG pH POC ABG pCO2 POC ABG pO2 ABG pO2 ABG HCO3 ABG O2 Saturation ABG Base Excess ABG Hemoglobin Oxyhemoglobin Sodium Potassium Chloride Carbon Dioxide BUN Creatinine Glucose POC Glucose Lactic Acid Calcium Ionized Calcium Phosphorus Magnesium Iron TIBC Ferritin Total Bilirubin Direct Bilirubin AST ALT Alkaline Phosphatase Total Creatine Kinase CK-MB (CK-2) Troponin T C-Reactive Protein Serum Total Protein Total Protein Albumin Heqly-7-Eeiguoxfl Lnacq-2-Kblpysdlm PEP Interpretation Triglycerides LDL Cholesterol Direct HDL Cholesterol Free T4 PTH Intact Urine WBC (Auto) Urine Creatinine Salicylates Acetaminophen Crossmatch See Detail 03/28/19 03/28/19 03/28/19 12:28 14:10 17:43 WBC RBC Hgb 5.9 L* Hct 18.3 L* MCV MCH MCHC RDW Plt Count Lymph % (Auto) Craig % (Auto) Eos % (Auto) Lymph # Craig # Eos # Seg Neutrophils % Seg Neuts % (Manual) Lymphocytes % (Manual) Monocytes % (Manual) Eosinophils % (Manual) Nucleated RBC % Seg Neutrophils # Seg Neutrophils # Man Lymphocytes # (Manual) Monocytes # (Manual) Eosinophils # (Manual) PT INR D-Dimer Heparin Anti-Xa Level POC ABG pH ABG pH POC ABG pCO2 POC ABG pO2 ABG pO2 ABG HCO3 ABG O2 Saturation ABG Base Excess ABG Hemoglobin Oxyhemoglobin Sodium Potassium Chloride Carbon Dioxide BUN Creatinine Glucose POC Glucose 153 H 159 H Lactic Acid Calcium Ionized Calcium Phosphorus Magnesium Iron TIBC Ferritin Total Bilirubin Direct Bilirubin AST ALT Alkaline Phosphatase Total Creatine Kinase CK-MB (CK-2) Troponin T C-Reactive Protein Serum Total Protein Total Protein Albumin Uxzlw-3-Jlujyiwar Ueaag-9-Pjqpgieqj PEP Interpretation Triglycerides LDL Cholesterol Direct HDL Cholesterol Free T4 PTH Intact Urine WBC (Auto) Urine Creatinine Salicylates Acetaminophen Crossmatch 03/28/19 03/28/19 03/28/19 18:10 Unknown 23:59 WBC 24.8 H RBC 3.42 L Hgb 10.2 L D Hct 31.1 L D MCV MCH MCHC RDW 15.4 H Plt Count 54 L Lymph % (Auto) Craig % (Auto) Eos % (Auto) Lymph # Craig # Eos # Seg Neutrophils % Seg Neuts % (Manual) 91.0 H Lymphocytes % (Manual) 8.0 L Monocytes % (Manual) Eosinophils % (Manual) Nucleated RBC % Seg Neutrophils # Seg Neutrophils # Man 22.6 H Lymphocytes # (Manual) Monocytes # (Manual) Eosinophils # (Manual) PT INR D-Dimer Heparin Anti-Xa Level POC ABG pH ABG pH POC ABG pCO2 POC ABG pO2 ABG pO2 ABG HCO3 ABG O2 Saturation ABG Base Excess ABG Hemoglobin Oxyhemoglobin Sodium Potassium 5.7 H Chloride Carbon Dioxide BUN Creatinine Glucose POC Glucose 107 H Lactic Acid Calcium Ionized Calcium Phosphorus Magnesium Iron TIBC Ferritin Total Bilirubin Direct Bilirubin AST ALT Alkaline Phosphatase Total Creatine Kinase CK-MB (CK-2) Troponin T C-Reactive Protein Serum Total Protein Total Protein Albumin Ycadg-8-Duripqwvc Hosqw-2-Vyjevdtcv PEP Interpretation Triglycerides LDL Cholesterol Direct HDL Cholesterol Free T4 PTH Intact Urine WBC (Auto) Urine Creatinine Salicylates Acetaminophen Crossmatch 03/29/19 03/29/19 03/29/19 04:29 05:46 06:22 WBC RBC Hgb 8.6 L Hct 25.7 L MCV MCH MCHC RDW Plt Count 93 L Lymph % (Auto) Craig % (Auto) Eos % (Auto) Lymph # Craig # Eos # Seg Neutrophils % Seg Neuts % (Manual) Lymphocytes % (Manual) Monocytes % (Manual) Eosinophils % (Manual) Nucleated RBC % Seg Neutrophils # Seg Neutrophils # Man Lymphocytes # (Manual) Monocytes # (Manual) Eosinophils # (Manual) PT INR D-Dimer Heparin Anti-Xa Level POC ABG pH ABG pH POC ABG pCO2 32.2 L POC ABG pO2 ABG pO2 ABG HCO3 ABG O2 Saturation ABG Base Excess ABG Hemoglobin Oxyhemoglobin Sodium Potassium Chloride Carbon Dioxide BUN Creatinine Glucose POC Glucose 113 H Lactic Acid Calcium Ionized Calcium Phosphorus Magnesium Iron TIBC Ferritin Total Bilirubin Direct Bilirubin AST ALT Alkaline Phosphatase Total Creatine Kinase CK-MB (CK-2) Troponin T C-Reactive Protein Serum Total Protein Total Protein Albumin Uuqtr-0-Orqluqakf Dkiqr-4-Rfrpvimao PEP Interpretation Triglycerides LDL Cholesterol Direct HDL Cholesterol Free T4 PTH Intact Urine WBC (Auto) Urine Creatinine Salicylates Acetaminophen Crossmatch 03/29/19 03/29/19 03/29/19 06:22 06:22 06:22 WBC 23.2 H RBC 2.91 L Hgb 8.6 L Hct 25.8 L MCV MCH MCHC RDW Plt Count 91 L Lymph % (Auto) Craig % (Auto) Eos % (Auto) Lymph # Craig # Eos # Seg Neutrophils % Seg Neuts % (Manual) Lymphocytes % (Manual) Monocytes % (Manual) Eosinophils % (Manual) Nucleated RBC % Seg Neutrophils # Seg Neutrophils # Man Lymphocytes # (Manual) Monocytes # (Manual) Eosinophils # (Manual) PT INR D-Dimer Heparin Anti-Xa Level POC ABG pH ABG pH POC ABG pCO2 POC ABG pO2 ABG pO2 ABG HCO3 ABG O2 Saturation ABG Base Excess ABG Hemoglobin Oxyhemoglobin Sodium 133 L Potassium Chloride 93.8 L Carbon Dioxide 18 L BUN 109 H Creatinine 7.4 H Glucose 124 H POC Glucose Lactic Acid Calcium 4.6 L* Ionized Calcium Phosphorus Magnesium Iron TIBC Ferritin Total Bilirubin Direct Bilirubin AST ALT Alkaline Phosphatase Total Creatine Kinase 3401 H CK-MB (CK-2) Troponin T C-Reactive Protein Serum Total Protein Total Protein Albumin Ezpit-1-Fiqobbwiz Jrkfj-7-Bkkgtimym PEP Interpretation Triglycerides 309 H LDL Cholesterol Direct HDL Cholesterol Free T4 PTH Intact Urine WBC (Auto) Urine Creatinine Salicylates Acetaminophen Crossmatch 03/29/19 03/29/19 03/29/19 11:48 11:48 18:24 WBC RBC Hgb 7.8 L Hct 23.2 L MCV MCH MCHC RDW Plt Count Lymph % (Auto) Craig % (Auto) Eos % (Auto) Lymph # Craig # Eos # Seg Neutrophils % Seg Neuts % (Manual) Lymphocytes % (Manual) Monocytes % (Manual) Eosinophils % (Manual) Nucleated RBC % Seg Neutrophils # Seg Neutrophils # Man Lymphocytes # (Manual) Monocytes # (Manual) Eosinophils # (Manual) PT 15.3 H INR 1.24 H D-Dimer Heparin Anti-Xa Level POC ABG pH ABG pH POC ABG pCO2 POC ABG pO2 ABG pO2 ABG HCO3 ABG O2 Saturation ABG Base Excess ABG Hemoglobin Oxyhemoglobin Sodium Potassium Chloride Carbon Dioxide BUN Creatinine Glucose POC Glucose 122 H Lactic Acid Calcium Ionized Calcium Phosphorus Magnesium Iron TIBC Ferritin Total Bilirubin Direct Bilirubin AST ALT Alkaline Phosphatase Total Creatine Kinase CK-MB (CK-2) Troponin T C-Reactive Protein Serum Total Protein Total Protein Albumin Zytun-5-Zqomiqomz Ujjfh-3-Peabiqycy PEP Interpretation Triglycerides LDL Cholesterol Direct HDL Cholesterol Free T4 PTH Intact Urine WBC (Auto) Urine Creatinine Salicylates Acetaminophen Crossmatch 03/30/19 03/30/19 03/30/19 00:40 04:31 05:04 WBC RBC Hgb 7.6 L Hct 23.0 L MCV MCH MCHC RDW Plt Count Lymph % (Auto) Craig % (Auto) Eos % (Auto) Lymph # Craig # Eos # Seg Neutrophils % Seg Neuts % (Manual) Lymphocytes % (Manual) Monocytes % (Manual) Eosinophils % (Manual) Nucleated RBC % Seg Neutrophils # Seg Neutrophils # Man Lymphocytes # (Manual) Monocytes # (Manual) Eosinophils # (Manual) PT INR D-Dimer Heparin Anti-Xa Level POC ABG pH 7.346 L ABG pH POC ABG pCO2 POC ABG pO2 62 L ABG pO2 ABG HCO3 ABG O2 Saturation ABG Base Excess ABG Hemoglobin Oxyhemoglobin Sodium Potassium Chloride Carbon Dioxide BUN 79 H Creatinine 6.4 H Glucose POC Glucose Lactic Acid Calcium 6.1 L D Ionized Calcium Phosphorus Magnesium Iron TIBC Ferritin Total Bilirubin Direct Bilirubin AST ALT Alkaline Phosphatase Total Creatine Kinase CK-MB (CK-2) Troponin T C-Reactive Protein Serum Total Protein Total Protein Albumin Tuzry-1-Bwdyyxodi Lbjly-8-Txhbsbzrh PEP Interpretation Triglycerides LDL Cholesterol Direct HDL Cholesterol Free T4 PTH Intact Urine WBC (Auto) Urine Creatinine Salicylates Acetaminophen Crossmatch 03/30/19 03/30/19 03/30/19 08:45 12:09 22:43 WBC 14.3 H RBC 2.33 L Hgb 7.0 L 7.4 L Hct 21.0 L 22.3 L MCV MCH MCHC RDW 15.6 H Plt Count 135 L Lymph % (Auto) Craig % (Auto) Eos % (Auto) Lymph # Craig # Eos # Seg Neutrophils % Seg Neuts % (Manual) Lymphocytes % (Manual) Monocytes % (Manual) Eosinophils % (Manual) Nucleated RBC % Seg Neutrophils # Seg Neutrophils # Man Lymphocytes # (Manual) Monocytes # (Manual) Eosinophils # (Manual) PT INR D-Dimer Heparin Anti-Xa Level POC ABG pH ABG pH POC ABG pCO2 POC ABG pO2 ABG pO2 ABG HCO3 ABG O2 Saturation ABG Base Excess ABG Hemoglobin Oxyhemoglobin Sodium Potassium Chloride Carbon Dioxide BUN Creatinine Glucose POC Glucose Lactic Acid Calcium Ionized Calcium 3.7 L Phosphorus Magnesium Iron TIBC Ferritin Total Bilirubin Direct Bilirubin AST ALT Alkaline Phosphatase Total Creatine Kinase CK-MB (CK-2) Troponin T C-Reactive Protein Serum Total Protein Total Protein Albumin Yvxhm-7-Izgxzdoed Ibxyd-6-Lrsfusncg PEP Interpretation Triglycerides LDL Cholesterol Direct HDL Cholesterol Free T4 PTH Intact Urine WBC (Auto) Urine Creatinine Salicylates Acetaminophen Crossmatch 03/30/19 03/30/19 03/31/19 23:38 Unknown 04:44 WBC 11.5 H RBC 2.40 L Hgb 7.3 L Hct 21.9 L MCV MCH MCHC RDW 15.4 H Plt Count Lymph % (Auto) 10.6 L Craig % (Auto) Eos % (Auto) Lymph # Craig # Eos # Seg Neutrophils % 81.7 H Seg Neuts % (Manual) Lymphocytes % (Manual) Monocytes % (Manual) Eosinophils % (Manual) Nucleated RBC % Seg Neutrophils # 9.4 H Seg Neutrophils # Man Lymphocytes # (Manual) Monocytes # (Manual) Eosinophils # (Manual) PT INR D-Dimer Heparin Anti-Xa Level POC ABG pH ABG pH POC ABG pCO2 POC ABG pO2 ABG pO2 ABG HCO3 ABG O2 Saturation ABG Base Excess ABG Hemoglobin Oxyhemoglobin Sodium Potassium Chloride Carbon Dioxide BUN Creatinine Glucose POC Glucose 155 H Lactic Acid Calcium Ionized Calcium Phosphorus Magnesium Iron TIBC Ferritin Total Bilirubin Direct Bilirubin 0.4 H AST 63 H ALT Alkaline Phosphatase Total Creatine Kinase CK-MB (CK-2) Troponin T C-Reactive Protein Serum Total Protein Total Protein 4.9 L Albumin 2.2 L Gtmxc-8-Fsutxyjoc Dlcxz-9-Jczetfaxp PEP Interpretation Triglycerides LDL Cholesterol Direct HDL Cholesterol Free T4 PTH Intact Urine WBC (Auto) Urine Creatinine Salicylates Acetaminophen Crossmatch 03/31/19 03/31/19 03/31/19 04:44 05:44 08:20 WBC RBC Hgb Hct MCV MCH MCHC RDW Plt Count Lymph % (Auto) Craig % (Auto) Eos % (Auto) Lymph # Craig # Eos # Seg Neutrophils % Seg Neuts % (Manual) Lymphocytes % (Manual) Monocytes % (Manual) Eosinophils % (Manual) Nucleated RBC % Seg Neutrophils # Seg Neutrophils # Man Lymphocytes # (Manual) Monocytes # (Manual) Eosinophils # (Manual) PT INR D-Dimer Heparin Anti-Xa Level POC ABG pH ABG pH POC ABG pCO2 53.5 H POC ABG pO2 62 L ABG pO2 ABG HCO3 ABG O2 Saturation ABG Base Excess ABG Hemoglobin Oxyhemoglobin Sodium 135 L Potassium Chloride 96.7 L Carbon Dioxide 19 L BUN 94 H Creatinine 7.8 H Glucose POC Glucose Lactic Acid Calcium 5.3 L* Ionized Calcium Phosphorus 8.20 H Magnesium Iron TIBC Ferritin Total Bilirubin Direct Bilirubin 0.4 H AST 60 H ALT Alkaline Phosphatase Total Creatine Kinase CK-MB (CK-2) Troponin T C-Reactive Protein Serum Total Protein Total Protein 4.8 L Albumin 2.1 L Cmqsu-6-Bsvhcquhs Buxmf-1-Kbajaiqnf PEP Interpretation Triglycerides LDL Cholesterol Direct HDL Cholesterol Free T4 PTH Intact Urine WBC (Auto) Urine Creatinine Salicylates Acetaminophen Crossmatch 03/31/19 04/01/19 04/01/19 22:14 04:27 04:27 WBC RBC 2.60 L Hgb 8.0 L Hct 24.1 L MCV MCH MCHC RDW 15.7 H Plt Count Lymph % (Auto) 7.9 L Craig % (Auto) Eos % (Auto) Lymph # 0.7 L Craig # Eos # Seg Neutrophils % 83.6 H Seg Neuts % (Manual) Lymphocytes % (Manual) Monocytes % (Manual) Eosinophils % (Manual) Nucleated RBC % Seg Neutrophils # Seg Neutrophils # Man Lymphocytes # (Manual) Monocytes # (Manual) Eosinophils # (Manual) PT INR D-Dimer Heparin Anti-Xa Level POC ABG pH 7.286 L ABG pH POC ABG pCO2 54.7 H POC ABG pO2 179 H ABG pO2 ABG HCO3 ABG O2 Saturation ABG Base Excess ABG Hemoglobin Oxyhemoglobin Sodium Potassium Chloride Carbon Dioxide BUN 68 H Creatinine 6.6 H Glucose POC Glucose Lactic Acid Calcium 6.5 L D Ionized Calcium Phosphorus 7.30 H Magnesium Iron TIBC Ferritin Total Bilirubin Direct Bilirubin AST ALT Alkaline Phosphatase Total Creatine Kinase 1652 H CK-MB (CK-2) Troponin T C-Reactive Protein Serum Total Protein Total Protein Albumin Nmnar-7-Xfmuyirpf Sonvv-1-Bbkdadzcr PEP Interpretation Triglycerides LDL Cholesterol Direct HDL Cholesterol Free T4 PTH Intact Urine WBC (Auto) Urine Creatinine Salicylates Acetaminophen Crossmatch 04/01/19 04/01/19 04/01/19 05:14 05:37 18:37 WBC RBC Hgb Hct MCV MCH MCHC RDW Plt Count Lymph % (Auto) Craig % (Auto) Eos % (Auto) Lymph # Craig # Eos # Seg Neutrophils % Seg Neuts % (Manual) Lymphocytes % (Manual) Monocytes % (Manual) Eosinophils % (Manual) Nucleated RBC % Seg Neutrophils # Seg Neutrophils # Man Lymphocytes # (Manual) Monocytes # (Manual) Eosinophils # (Manual) PT INR D-Dimer Heparin Anti-Xa Level POC ABG pH 7.283 L ABG pH POC ABG pCO2 53.4 H POC ABG pO2 241 H ABG pO2 ABG HCO3 ABG O2 Saturation ABG Base Excess ABG Hemoglobin Oxyhemoglobin Sodium Potassium Chloride Carbon Dioxide BUN Creatinine Glucose POC Glucose 111 H 119 H Lactic Acid Calcium Ionized Calcium Phosphorus Magnesium Iron TIBC Ferritin Total Bilirubin Direct Bilirubin AST ALT Alkaline Phosphatase Total Creatine Kinase CK-MB (CK-2) Troponin T C-Reactive Protein Serum Total Protein Total Protein Albumin Pdptu-8-Ivykcmeii Fvzac-9-Iifkzcyus PEP Interpretation Triglycerides LDL Cholesterol Direct HDL Cholesterol Free T4 PTH Intact Urine WBC (Auto) Urine Creatinine Salicylates Acetaminophen Crossmatch 04/01/19 04/02/19 04/02/19 21:28 04:40 05:03 WBC RBC 2.36 L Hgb 7.2 L Hct 21.9 L MCV MCH MCHC RDW 16.0 H Plt Count Lymph % (Auto) 10.8 L Craig % (Auto) Eos % (Auto) Lymph # 0.8 L Craig # Eos # Seg Neutrophils % 80.3 H Seg Neuts % (Manual) Lymphocytes % (Manual) Monocytes % (Manual) Eosinophils % (Manual) Nucleated RBC % Seg Neutrophils # Seg Neutrophils # Man Lymphocytes # (Manual) Monocytes # (Manual) Eosinophils # (Manual) PT INR D-Dimer Heparin Anti-Xa Level POC ABG pH 7.299 L 7.300 L ABG pH POC ABG pCO2 48.2 H 45.2 H POC ABG pO2 133 H 107 H ABG pO2 ABG HCO3 ABG O2 Saturation ABG Base Excess ABG Hemoglobin Oxyhemoglobin Sodium Potassium Chloride Carbon Dioxide BUN Creatinine Glucose POC Glucose Lactic Acid Calcium Ionized Calcium Phosphorus Magnesium Iron TIBC Ferritin Total Bilirubin Direct Bilirubin AST ALT Alkaline Phosphatase Total Creatine Kinase CK-MB (CK-2) Troponin T C-Reactive Protein Serum Total Protein Total Protein Albumin Gaisk-7-Uxwjpkgvn Nuupm-4-Vbxloayhy PEP Interpretation Triglycerides LDL Cholesterol Direct HDL Cholesterol Free T4 PTH Intact Urine WBC (Auto) Urine Creatinine Salicylates Acetaminophen Crossmatch 04/02/19 04/02/19 04/02/19 05:03 05:03 12:15 WBC RBC Hgb 7.4 L Hct 22.6 L MCV MCH MCHC RDW Plt Count Lymph % (Auto) Craig % (Auto) Eos % (Auto) Lymph # Craig # Eos # Seg Neutrophils % Seg Neuts % (Manual) Lymphocytes % (Manual) Monocytes % (Manual) Eosinophils % (Manual) Nucleated RBC % Seg Neutrophils # Seg Neutrophils # Man Lymphocytes # (Manual) Monocytes # (Manual) Eosinophils # (Manual) PT INR D-Dimer Heparin Anti-Xa Level POC ABG pH ABG pH POC ABG pCO2 POC ABG pO2 ABG pO2 ABG HCO3 ABG O2 Saturation ABG Base Excess ABG Hemoglobin Oxyhemoglobin Sodium 136 L Potassium Chloride 97.8 L Carbon Dioxide 18 L BUN 82 H Creatinine 8.2 H Glucose POC Glucose Lactic Acid Calcium 6.7 L Ionized Calcium Phosphorus 7.50 H Magnesium Iron 26 L TIBC 138 L Ferritin 607.0 H Total Bilirubin Direct Bilirubin AST ALT Alkaline Phosphatase Total Creatine Kinase CK-MB (CK-2) Troponin T C-Reactive Protein Serum Total Protein Total Protein Albumin Vymxi-3-Wiecaeclk Bsunr-3-Stwroxuus PEP Interpretation Triglycerides LDL Cholesterol Direct HDL Cholesterol Free T4 PTH Intact Urine WBC (Auto) Urine Creatinine Salicylates Acetaminophen Crossmatch 04/02/19 04/02/19 04/03/19 16:34 17:14 04:18 WBC RBC Hgb Hct MCV MCH MCHC RDW Plt Count Lymph % (Auto) Craig % (Auto) Eos % (Auto) Lymph # Craig # Eos # Seg Neutrophils % Seg Neuts % (Manual) Lymphocytes % (Manual) Monocytes % (Manual) Eosinophils % (Manual) Nucleated RBC % Seg Neutrophils # Seg Neutrophils # Man Lymphocytes # (Manual) Monocytes # (Manual) Eosinophils # (Manual) PT INR D-Dimer Heparin Anti-Xa Level POC ABG pH ABG pH POC ABG pCO2 POC ABG pO2 146 H ABG pO2 ABG HCO3 ABG O2 Saturation ABG Base Excess ABG Hemoglobin Oxyhemoglobin Sodium Potassium Chloride Carbon Dioxide BUN Creatinine Glucose POC Glucose 108 H Lactic Acid Calcium Ionized Calcium Phosphorus Magnesium Iron TIBC Ferritin Total Bilirubin Direct Bilirubin AST ALT Alkaline Phosphatase Total Creatine Kinase CK-MB (CK-2) Troponin T C-Reactive Protein Serum Total Protein Total Protein Albumin Lsety-6-Mgobmqhue Hbwgy-0-Rcvzoprio PEP Interpretation Triglycerides LDL Cholesterol Direct HDL Cholesterol Free T4 PTH Intact Urine WBC (Auto) Urine Creatinine Salicylates Acetaminophen Crossmatch See Detail 04/03/19 04/03/19 04/03/19 04:25 08:30 18:24 WBC RBC 2.40 L Hgb 7.3 L Hct 21.9 L MCV MCH MCHC RDW Plt Count Lymph % (Auto) Craig % (Auto) 7.7 H Eos % (Auto) Lymph # 0.9 L Craig # Eos # Seg Neutrophils % 74.6 H Seg Neuts % (Manual) Lymphocytes % (Manual) Monocytes % (Manual) Eosinophils % (Manual) Nucleated RBC % Seg Neutrophils # Seg Neutrophils # Man Lymphocytes # (Manual) Monocytes # (Manual) Eosinophils # (Manual) PT INR D-Dimer Heparin Anti-Xa Level POC ABG pH ABG pH POC ABG pCO2 POC ABG pO2 ABG pO2 ABG HCO3 ABG O2 Saturation ABG Base Excess ABG Hemoglobin Oxyhemoglobin Sodium 136 L Potassium Chloride 97.0 L Carbon Dioxide BUN 58 H Creatinine 7.3 H Glucose POC Glucose 106 H Lactic Acid Calcium 7.5 L Ionized Calcium Phosphorus 5.80 H D Magnesium Iron TIBC Ferritin Total Bilirubin Direct Bilirubin AST ALT Alkaline Phosphatase Total Creatine Kinase CK-MB (CK-2) Troponin T C-Reactive Protein Serum Total Protein Total Protein Albumin Rktzc-7-Naaucbeag Mskfe-6-Xqzczceoz PEP Interpretation Triglycerides LDL Cholesterol Direct HDL Cholesterol Free T4 PTH Intact Urine WBC (Auto) Urine Creatinine Salicylates Acetaminophen Crossmatch 04/03/19 04/04/19 04/04/19 23:43 04:47 04:47 WBC RBC 2.72 L Hgb 8.3 L Hct 24.7 L MCV MCH MCHC RDW 15.6 H Plt Count Lymph % (Auto) Craig % (Auto) 10.1 H Eos % (Auto) Lymph # 0.8 L Craig # Eos # Seg Neutrophils % 71.4 H Seg Neuts % (Manual) Lymphocytes % (Manual) Monocytes % (Manual) Eosinophils % (Manual) Nucleated RBC % Seg Neutrophils # Seg Neutrophils # Man Lymphocytes # (Manual) Monocytes # (Manual) Eosinophils # (Manual) PT INR D-Dimer Heparin Anti-Xa Level POC ABG pH ABG pH POC ABG pCO2 POC ABG pO2 ABG pO2 123.8 H ABG HCO3 ABG O2 Saturation ABG Base Excess -3.0 L ABG Hemoglobin 7.9 L Oxyhemoglobin Sodium 134 L Potassium Chloride 97.9 L Carbon Dioxide BUN 64 H Creatinine 8.1 H Glucose POC Glucose Lactic Acid Calcium 7.2 L Ionized Calcium Phosphorus Magnesium Iron TIBC Ferritin Total Bilirubin Direct Bilirubin AST ALT Alkaline Phosphatase Total Creatine Kinase CK-MB (CK-2) Troponin T C-Reactive Protein Serum Total Protein Total Protein Albumin Rciim-3-Xgywaztsm Jentt-3-Kcmghfpxs PEP Interpretation Triglycerides LDL Cholesterol Direct HDL Cholesterol Free T4 PTH Intact Urine WBC (Auto) Urine Creatinine Salicylates Acetaminophen Crossmatch 04/04/19 04/04/19 04/04/19 06:07 13:40 18:18 WBC RBC Hgb Hct MCV MCH MCHC RDW Plt Count Lymph % (Auto) Craig % (Auto) Eos % (Auto) Lymph # Craig # Eos # Seg Neutrophils % Seg Neuts % (Manual) Lymphocytes % (Manual) Monocytes % (Manual) Eosinophils % (Manual) Nucleated RBC % Seg Neutrophils # Seg Neutrophils # Man Lymphocytes # (Manual) Monocytes # (Manual) Eosinophils # (Manual) PT INR D-Dimer Heparin Anti-Xa Level POC ABG pH ABG pH POC ABG pCO2 POC ABG pO2 ABG pO2 95.9 H ABG HCO3 ABG O2 Saturation ABG Base Excess -3.0 L ABG Hemoglobin 8.5 L Oxyhemoglobin Sodium Potassium Chloride Carbon Dioxide BUN Creatinine Glucose POC Glucose 107 H 107 H Lactic Acid Calcium Ionized Calcium Phosphorus Magnesium Iron TIBC Ferritin Total Bilirubin Direct Bilirubin AST ALT Alkaline Phosphatase Total Creatine Kinase CK-MB (CK-2) Troponin T C-Reactive Protein Serum Total Protein Total Protein Albumin Frqcu-9-Juuzznfvz Ncbdm-1-Mcmzpfuxo PEP Interpretation Triglycerides LDL Cholesterol Direct HDL Cholesterol Free T4 PTH Intact Urine WBC (Auto) Urine Creatinine Salicylates Acetaminophen Crossmatch 04/04/19 04/05/19 04/05/19 21:22 04:09 04:09 WBC RBC 2.76 L Hgb 8.4 L Hct 25.4 L MCV MCH MCHC RDW 15.8 H Plt Count 133 L Lymph % (Auto) Craig % (Auto) 9.6 H Eos % (Auto) Lymph # 0.7 L Craig # Eos # Seg Neutrophils % 72.6 H Seg Neuts % (Manual) Lymphocytes % (Manual) Monocytes % (Manual) Eosinophils % (Manual) Nucleated RBC % Seg Neutrophils # Seg Neutrophils # Man Lymphocytes # (Manual) Monocytes # (Manual) Eosinophils # (Manual) PT INR D-Dimer Heparin Anti-Xa Level POC ABG pH ABG pH POC ABG pCO2 47.2 H POC ABG pO2 137 H ABG pO2 ABG HCO3 ABG O2 Saturation ABG Base Excess ABG Hemoglobin Oxyhemoglobin Sodium 136 L Potassium Chloride Carbon Dioxide BUN 46 H Creatinine 6.7 H Glucose POC Glucose Lactic Acid Calcium 7.7 L Ionized Calcium Phosphorus Magnesium Iron TIBC Ferritin Total Bilirubin Direct Bilirubin AST ALT Alkaline Phosphatase Total Creatine Kinase CK-MB (CK-2) Troponin T C-Reactive Protein Serum Total Protein Total Protein Albumin Aatpj-1-Dpmvbdpfw Rqqni-1-Gdjkafrai PEP Interpretation Triglycerides LDL Cholesterol Direct HDL Cholesterol Free T4 PTH Intact Urine WBC (Auto) Urine Creatinine Salicylates Acetaminophen Crossmatch 04/05/19 04/05/19 04/05/19 05:28 06:14 16:50 WBC RBC Hgb Hct MCV MCH MCHC RDW Plt Count Lymph % (Auto) Craig % (Auto) Eos % (Auto) Lymph # Craig # Eos # Seg Neutrophils % Seg Neuts % (Manual) Lymphocytes % (Manual) Monocytes % (Manual) Eosinophils % (Manual) Nucleated RBC % Seg Neutrophils # Seg Neutrophils # Man Lymphocytes # (Manual) Monocytes # (Manual) Eosinophils # (Manual) PT INR D-Dimer Heparin Anti-Xa Level POC ABG pH ABG pH POC ABG pCO2 POC ABG pO2 67 L ABG pO2 ABG HCO3 ABG O2 Saturation ABG Base Excess ABG Hemoglobin Oxyhemoglobin Sodium Potassium Chloride Carbon Dioxide BUN Creatinine Glucose POC Glucose 108 H Lactic Acid Calcium Ionized Calcium Phosphorus Magnesium Iron TIBC Ferritin Total Bilirubin Direct Bilirubin AST ALT Alkaline Phosphatase Total Creatine Kinase CK-MB (CK-2) Troponin T C-Reactive Protein Serum Total Protein Total Protein Albumin Lgydg-8-Iwkfjhawa Mhfea-8-Dqbmvovui PEP Interpretation Triglycerides LDL Cholesterol Direct HDL Cholesterol Free T4 PTH Intact Urine WBC (Auto) 40.0 H Urine Creatinine Salicylates Acetaminophen Crossmatch 04/05/19 04/06/19 04/06/19 17:22 00:13 04:44 WBC RBC 2.48 L Hgb 7.5 L Hct 22.9 L MCV MCH MCHC RDW 16.0 H Plt Count 107 L Lymph % (Auto) Craig % (Auto) 10.7 H Eos % (Auto) Lymph # 1.0 L Craig # Eos # Seg Neutrophils % Seg Neuts % (Manual) Lymphocytes % (Manual) Monocytes % (Manual) Eosinophils % (Manual) Nucleated RBC % Seg Neutrophils # Seg Neutrophils # Man Lymphocytes # (Manual) Monocytes # (Manual) Eosinophils # (Manual) PT INR D-Dimer Heparin Anti-Xa Level POC ABG pH ABG pH POC ABG pCO2 POC ABG pO2 ABG pO2 ABG HCO3 ABG O2 Saturation ABG Base Excess ABG Hemoglobin Oxyhemoglobin Sodium Potassium Chloride Carbon Dioxide BUN Creatinine Glucose POC Glucose 118 H 138 H Lactic Acid Calcium Ionized Calcium Phosphorus Magnesium Iron TIBC Ferritin Total Bilirubin Direct Bilirubin AST ALT Alkaline Phosphatase Total Creatine Kinase CK-MB (CK-2) Troponin T C-Reactive Protein Serum Total Protein Total Protein Albumin [id number]-[id number] [id number]-8-[id number] PEP Interpretation Triglycerides LDL Cholesterol Direct HDL Cholesterol Free T4 PTH Intact Urine WBC (Auto) Urine Creatinine Salicylates Acetaminophen Crossmatch 04/06/19 04/06/19 04/06/19 04:44 05:20 05:23 WBC RBC Hgb Hct MCV MCH MCHC RDW Plt Count Lymph % (Auto) Craig % (Auto) Eos % (Auto) Lymph # Craig # Eos # Seg Neutrophils % Seg Neuts % (Manual) Lymphocytes % (Manual) Monocytes % (Manual) Eosinophils % (Manual) Nucleated RBC % Seg Neutrophils # Seg Neutrophils # Man Lymphocytes # (Manual) Monocytes # (Manual) Eosinophils # (Manual) PT INR D-Dimer Heparin Anti-Xa Level POC ABG pH ABG pH POC ABG pCO2 POC ABG pO2 ABG pO2 104.0 H ABG HCO3 ABG O2 Saturation ABG Base Excess -2.1 L ABG Hemoglobin 7.3 L Oxyhemoglobin Sodium Potassium Chloride Carbon Dioxide BUN 64 H Creatinine 8.2 H Glucose 103 H POC Glucose 118 H Lactic Acid Calcium 7.3 L Ionized Calcium Phosphorus Magnesium Iron TIBC Ferritin Total Bilirubin Direct Bilirubin AST ALT Alkaline Phosphatase Total Creatine Kinase CK-MB (CK-2) Troponin T C-Reactive Protein Serum Total Protein Total Protein Albumin Bzcoo-9-Hwatvvooi Vrkak-7-Pzxluaann PEP Interpretation Triglycerides LDL Cholesterol Direct HDL Cholesterol Free T4 PTH Intact Urine WBC (Auto) Urine Creatinine Salicylates Acetaminophen Crossmatch 04/06/19 04/07/19 04/07/19 12:02 05:40 05:40 WBC RBC 2.59 L Hgb 7.9 L Hct 23.8 L MCV MCH MCHC RDW 15.8 H Plt Count 89 L Lymph % (Auto) Craig % (Auto) 10.3 H Eos % (Auto) Lymph # 1.1 L Craig # Eos # Seg Neutrophils % Seg Neuts % (Manual) Lymphocytes % (Manual) Monocytes % (Manual) Eosinophils % (Manual) Nucleated RBC % Seg Neutrophils # Seg Neutrophils # Man Lymphocytes # (Manual) Monocytes # (Manual) Eosinophils # (Manual) PT INR D-Dimer Heparin Anti-Xa Level POC ABG pH ABG pH POC ABG pCO2 POC ABG pO2 ABG pO2 ABG HCO3 ABG O2 Saturation ABG Base Excess ABG Hemoglobin Oxyhemoglobin Sodium 136 L Potassium 3.5 L Chloride Carbon Dioxide BUN 46 H Creatinine 6.2 H Glucose POC Glucose 108 H Lactic Acid Calcium 7.9 L Ionized Calcium Phosphorus Magnesium Iron TIBC Ferritin Total Bilirubin Direct Bilirubin AST ALT Alkaline Phosphatase Total Creatine Kinase CK-MB (CK-2) Troponin T C-Reactive Protein Serum Total Protein Total Protein Albumin Tbeiw-1-Pqiecykoz Kppif-1-Mdehfgmji PEP Interpretation Triglycerides LDL Cholesterol Direct HDL Cholesterol Free T4 PTH Intact Urine WBC (Auto) Urine Creatinine Salicylates Acetaminophen Crossmatch 04/07/19 04/09/19 04/09/19 12:57 04:28 04:28 WBC RBC 2.85 L Hgb 8.7 L Hct 26.2 L MCV MCH MCHC RDW 15.6 H Plt Count Lymph % (Auto) Craig % (Auto) 10.4 H Eos % (Auto) Lymph # 1.0 L Craig # Eos # Seg Neutrophils % 73.3 H Seg Neuts % (Manual) Lymphocytes % (Manual) Monocytes % (Manual) Eosinophils % (Manual) Nucleated RBC % Seg Neutrophils # Seg Neutrophils # Man Lymphocytes # (Manual) Monocytes # (Manual) Eosinophils # (Manual) PT INR D-Dimer Heparin Anti-Xa Level POC ABG pH ABG pH POC ABG pCO2 POC ABG pO2 107 H ABG pO2 ABG HCO3 ABG O2 Saturation ABG Base Excess ABG Hemoglobin Oxyhemoglobin Sodium Potassium 3.5 L Chloride 97.8 L Carbon Dioxide BUN 62 H Creatinine 8.1 H Glucose POC Glucose Lactic Acid Calcium 8.2 L Ionized Calcium Phosphorus 5.10 H Magnesium Iron TIBC Ferritin Total Bilirubin Direct Bilirubin AST ALT Alkaline Phosphatase Total Creatine Kinase CK-MB (CK-2) Troponin T C-Reactive Protein Serum Total Protein Total Protein Albumin Nqzdz-9-Isilchpoe Omxft-4-Sssqdwvkd PEP Interpretation Triglycerides LDL Cholesterol Direct HDL Cholesterol Free T4 PTH Intact Urine WBC (Auto) Urine Creatinine Salicylates Acetaminophen Crossmatch 04/10/19 04/11/19 04/11/19 18:15 00:25 04:16 WBC 11.5 H RBC 2.91 L Hgb 8.9 L Hct 27.6 L MCV 95 H MCH MCHC RDW 17.5 H Plt Count Lymph % (Auto) Craig % (Auto) Eos % (Auto) Lymph # Craig # Eos # Seg Neutrophils % Seg Neuts % (Manual) 71.0 H Lymphocytes % (Manual) Monocytes % (Manual) 8.0 H Eosinophils % (Manual) Nucleated RBC % Seg Neutrophils # Seg Neutrophils # Man 8.2 H Lymphocytes # (Manual) Monocytes # (Manual) 0.9 H Eosinophils # (Manual) PT INR D-Dimer Heparin Anti-Xa Level POC ABG pH ABG pH POC ABG pCO2 POC ABG pO2 ABG pO2 ABG HCO3 ABG O2 Saturation ABG Base Excess ABG Hemoglobin Oxyhemoglobin Sodium Potassium Chloride Carbon Dioxide BUN Creatinine Glucose POC Glucose 109 H 114 H Lactic Acid Calcium Ionized Calcium Phosphorus Magnesium Iron TIBC Ferritin Total Bilirubin Direct Bilirubin AST ALT Alkaline Phosphatase Total Creatine Kinase CK-MB (CK-2) Troponin T C-Reactive Protein Serum Total Protein Total Protein Albumin Rmkgq-1-Qwdlgovnz Iknyp-0-Xcjajtmru PEP Interpretation Triglycerides LDL Cholesterol Direct HDL Cholesterol Free T4 PTH Intact Urine WBC (Auto) Urine Creatinine Salicylates Acetaminophen Crossmatch 04/11/19 04/11/19 04/11/19 06:47 09:21 12:15 WBC RBC Hgb Hct MCV MCH MCHC RDW Plt Count Lymph % (Auto) Craig % (Auto) Eos % (Auto) Lymph # Craig # Eos # Seg Neutrophils % Seg Neuts % (Manual) Lymphocytes % (Manual) Monocytes % (Manual) Eosinophils % (Manual) Nucleated RBC % Seg Neutrophils # Seg Neutrophils # Man Lymphocytes # (Manual) Monocytes # (Manual) Eosinophils # (Manual) PT INR D-Dimer Heparin Anti-Xa Level POC ABG pH ABG pH POC ABG pCO2 POC ABG pO2 ABG pO2 ABG HCO3 ABG O2 Saturation ABG Base Excess ABG Hemoglobin Oxyhemoglobin Sodium Potassium 3.5 L Chloride Carbon Dioxide BUN 45 H Creatinine 6.0 H Glucose 113 H POC Glucose 106 H 109 H Lactic Acid Calcium Ionized Calcium Phosphorus Magnesium Iron TIBC Ferritin Total Bilirubin Direct Bilirubin AST ALT Alkaline Phosphatase Total Creatine Kinase CK-MB (CK-2) Troponin T C-Reactive Protein Serum Total Protein Total Protein Albumin Vrtfg-1-Kxuqmadoy Hlnhl-9-Vvmuzwgpj PEP Interpretation Triglycerides LDL Cholesterol Direct HDL Cholesterol Free T4 PTH Intact Urine WBC (Auto) Urine Creatinine Salicylates Acetaminophen Crossmatch 04/11/19 04/12/19 04/12/19 18:42 12:13 23:52 WBC RBC Hgb Hct MCV MCH MCHC RDW Plt Count Lymph % (Auto) Craig % (Auto) Eos % (Auto) Lymph # Craig # Eos # Seg Neutrophils % Seg Neuts % (Manual) Lymphocytes % (Manual) Monocytes % (Manual) Eosinophils % (Manual) Nucleated RBC % Seg Neutrophils # Seg Neutrophils # Man Lymphocytes # (Manual) Monocytes # (Manual) Eosinophils # (Manual) PT INR D-Dimer Heparin Anti-Xa Level POC ABG pH ABG pH POC ABG pCO2 POC ABG pO2 ABG pO2 ABG HCO3 ABG O2 Saturation ABG Base Excess ABG Hemoglobin Oxyhemoglobin Sodium Potassium Chloride Carbon Dioxide BUN Creatinine Glucose POC Glucose 107 H 115 H 124 H Lactic Acid Calcium Ionized Calcium Phosphorus Magnesium Iron TIBC Ferritin Total Bilirubin Direct Bilirubin AST ALT Alkaline Phosphatase Total Creatine Kinase CK-MB (CK-2) Troponin T C-Reactive Protein Serum Total Protein Total Protein Albumin Osgwc-4-Cfpnhqzpx Peuyg-8-Xgvhyljqi PEP Interpretation Triglycerides LDL Cholesterol Direct HDL Cholesterol Free T4 PTH Intact Urine WBC (Auto) Urine Creatinine Salicylates Acetaminophen Crossmatch 04/13/19 04/13/19 04/13/19 05:00 05:00 05:47 WBC 11.7 H RBC 2.97 L Hgb 8.8 L Hct 27.3 L MCV MCH MCHC RDW 16.1 H Plt Count Lymph % (Auto) 9.5 L Craig % (Auto) 9.9 H Eos % (Auto) Lymph # 1.1 L Craig # 1.2 H Eos # Seg Neutrophils % 78.6 H Seg Neuts % (Manual) Lymphocytes % (Manual) Monocytes % (Manual) Eosinophils % (Manual) Nucleated RBC % Seg Neutrophils # 9.2 H Seg Neutrophils # Man Lymphocytes # (Manual) Monocytes # (Manual) Eosinophils # (Manual) PT INR D-Dimer Heparin Anti-Xa Level POC ABG pH ABG pH POC ABG pCO2 POC ABG pO2 ABG pO2 ABG HCO3 ABG O2 Saturation ABG Base Excess ABG Hemoglobin Oxyhemoglobin Sodium Potassium 3.5 L Chloride Carbon Dioxide BUN 42 H Creatinine 4.6 H Glucose 106 H POC Glucose 107 H Lactic Acid Calcium 10.6 H D Ionized Calcium Phosphorus 5.90 H Magnesium Iron TIBC Ferritin Total Bilirubin Direct Bilirubin AST ALT Alkaline Phosphatase Total Creatine Kinase CK-MB (CK-2) Troponin T C-Reactive Protein Serum Total Protein Total Protein 5.8 L Albumin 2.5 L Emwbf-8-Kxxemwrab Mthjz-9-Oaydphrfh PEP Interpretation Triglycerides LDL Cholesterol Direct HDL Cholesterol Free T4 PTH Intact Urine WBC (Auto) Urine Creatinine Salicylates Acetaminophen Crossmatch 04/13/19 04/14/19 04/14/19 17:32 00:00 03:55 WBC RBC Hgb Hct MCV MCH MCHC RDW Plt Count Lymph % (Auto) Craig % (Auto) Eos % (Auto) Lymph # Craig # Eos # Seg Neutrophils % Seg Neuts % (Manual) Lymphocytes % (Manual) Monocytes % (Manual) Eosinophils % (Manual) Nucleated RBC % Seg Neutrophils # Seg Neutrophils # Man Lymphocytes # (Manual) Monocytes # (Manual) Eosinophils # (Manual) PT INR D-Dimer Heparin Anti-Xa Level POC ABG pH ABG pH POC ABG pCO2 POC ABG pO2 ABG pO2 ABG HCO3 ABG O2 Saturation ABG Base Excess ABG Hemoglobin Oxyhemoglobin Sodium Potassium 3.0 L Chloride Carbon Dioxide BUN 30 H Creatinine 3.1 H Glucose POC Glucose 112 H 120 H Lactic Acid Calcium 10.8 H Ionized Calcium Phosphorus Magnesium Iron TIBC Ferritin Total Bilirubin Direct Bilirubin AST ALT Alkaline Phosphatase Total Creatine Kinase CK-MB (CK-2) Troponin T C-Reactive Protein Serum Total Protein Total Protein Albumin Rydrv-6-Hskblqewn Abzif-0-Rpplsxijj PEP Interpretation Triglycerides LDL Cholesterol Direct HDL Cholesterol Free T4 PTH Intact Urine WBC (Auto) Urine Creatinine Salicylates Acetaminophen Crossmatch 04/14/19 04/14/19 04/15/19 11:56 23:28 05:11 WBC 13.0 H RBC 2.93 L Hgb 8.6 L Hct 26.5 L MCV MCH MCHC RDW 16.5 H Plt Count Lymph % (Auto) 12.2 L Craig % (Auto) 9.1 H Eos % (Auto) Lymph # Craig # 1.2 H Eos # Seg Neutrophils % 77.6 H Seg Neuts % (Manual) Lymphocytes % (Manual) Monocytes % (Manual) Eosinophils % (Manual) Nucleated RBC % Seg Neutrophils # 10.1 H Seg Neutrophils # Man Lymphocytes # (Manual) Monocytes # (Manual) Eosinophils # (Manual) PT INR D-Dimer Heparin Anti-Xa Level POC ABG pH ABG pH POC ABG pCO2 POC ABG pO2 ABG pO2 ABG HCO3 ABG O2 Saturation ABG Base Excess ABG Hemoglobin Oxyhemoglobin Sodium Potassium Chloride Carbon Dioxide BUN Creatinine Glucose POC Glucose 109 H 112 H Lactic Acid Calcium Ionized Calcium Phosphorus Magnesium Iron TIBC Ferritin Total Bilirubin Direct Bilirubin AST ALT Alkaline Phosphatase Total Creatine Kinase CK-MB (CK-2) Troponin T C-Reactive Protein Serum Total Protein Total Protein Albumin Hkyzx-8-Exwacpvpd Nwrnq-1-Reewjrdxw PEP Interpretation Triglycerides LDL Cholesterol Direct HDL Cholesterol Free T4 PTH Intact Urine WBC (Auto) Urine Creatinine Salicylates Acetaminophen Crossmatch 04/15/19 04/15/19 04/15/19 05:11 05:31 18:03 WBC RBC Hgb Hct MCV MCH MCHC RDW Plt Count Lymph % (Auto) Craig % (Auto) Eos % (Auto) Lymph # Craig # Eos # Seg Neutrophils % Seg Neuts % (Manual) Lymphocytes % (Manual) Monocytes % (Manual) Eosinophils % (Manual) Nucleated RBC % Seg Neutrophils # Seg Neutrophils # Man Lymphocytes # (Manual) Monocytes # (Manual) Eosinophils # (Manual) PT INR D-Dimer Heparin Anti-Xa Level POC ABG pH ABG pH POC ABG pCO2 POC ABG pO2 ABG pO2 ABG HCO3 ABG O2 Saturation ABG Base Excess ABG Hemoglobin Oxyhemoglobin Sodium Potassium 3.2 L Chloride Carbon Dioxide BUN 44 H Creatinine 3.6 H Glucose 106 H POC Glucose 110 H 121 H Lactic Acid Calcium 12.0 H Ionized Calcium Phosphorus 5.00 H Magnesium Iron TIBC Ferritin Total Bilirubin Direct Bilirubin AST ALT Alkaline Phosphatase Total Creatine Kinase CK-MB (CK-2) Troponin T C-Reactive Protein Serum Total Protein Total Protein Albumin Uguyw-1-Ikbtvrbis Bwsxc-8-Cnpdqonqm PEP Interpretation Triglycerides LDL Cholesterol Direct HDL Cholesterol Free T4 PTH Intact Urine WBC (Auto) Urine Creatinine Salicylates Acetaminophen Crossmatch 04/16/19 04/16/19 04/17/19 05:07 05:07 04:15 WBC 12.6 H RBC 3.12 L Hgb 9.0 L Hct 28.2 L MCV MCH MCHC RDW 16.6 H Plt Count Lymph % (Auto) 10.3 L Craig % (Auto) 9.8 H Eos % (Auto) Lymph # Craig # 1.2 H Eos # Seg Neutrophils % 78.2 H Seg Neuts % (Manual) Lymphocytes % (Manual) Monocytes % (Manual) Eosinophils % (Manual) Nucleated RBC % Seg Neutrophils # 9.9 H Seg Neutrophils # Man Lymphocytes # (Manual) Monocytes # (Manual) Eosinophils # (Manual) PT INR D-Dimer Heparin Anti-Xa Level POC ABG pH ABG pH POC ABG pCO2 POC ABG pO2 ABG pO2 ABG HCO3 ABG O2 Saturation ABG Base Excess ABG Hemoglobin Oxyhemoglobin Sodium 147 H 150 H Potassium 3.5 L 3.1 L Chloride Carbon Dioxide 32 H BUN 54 H 65 H Creatinine 3.8 H 4.0 H Glucose 102 H 107 H POC Glucose Lactic Acid Calcium 11.7 H 12.0 H Ionized Calcium Phosphorus 5.40 H Magnesium Iron TIBC Ferritin Total Bilirubin Direct Bilirubin AST ALT Alkaline Phosphatase Total Creatine Kinase CK-MB (CK-2) Troponin T C-Reactive Protein 7.10 H Serum Total Protein Total Protein Albumin Qhezs-5-Grtvwytvd Cddnx-1-Ptqmfudmi PEP Interpretation Triglycerides LDL Cholesterol Direct HDL Cholesterol Free T4 PTH Intact Urine WBC (Auto) Urine Creatinine Salicylates Acetaminophen Crossmatch 04/17/19 04/17/19 04/17/19 04:15 06:05 12:49 WBC 15.8 H RBC 3.32 L Hgb 9.5 L Hct 29.9 L MCV MCH MCHC RDW 16.9 H Plt Count Lymph % (Auto) 12.6 L Craig % (Auto) 11.1 H Eos % (Auto) Lymph # Craig # 1.7 H Eos # Seg Neutrophils % 74.7 H Seg Neuts % (Manual) Lymphocytes % (Manual) Monocytes % (Manual) Eosinophils % (Manual) Nucleated RBC % Seg Neutrophils # 11.8 H Seg Neutrophils # Man Lymphocytes # (Manual) Monocytes # (Manual) Eosinophils # (Manual) PT INR D-Dimer Heparin Anti-Xa Level POC ABG pH ABG pH POC ABG pCO2 POC ABG pO2 ABG pO2 ABG HCO3 ABG O2 Saturation ABG Base Excess ABG Hemoglobin Oxyhemoglobin Sodium Potassium Chloride Carbon Dioxide BUN Creatinine Glucose POC Glucose 111 H 108 H Lactic Acid Calcium Ionized Calcium Phosphorus Magnesium Iron TIBC Ferritin Total Bilirubin Direct Bilirubin AST ALT Alkaline Phosphatase Total Creatine Kinase CK-MB (CK-2) Troponin T C-Reactive Protein Serum Total Protein Total Protein Albumin Bzmfz-7-Mzqhvsruy Crglg-5-Pwilyjzsk PEP Interpretation Triglycerides LDL Cholesterol Direct HDL Cholesterol Free T4 PTH Intact Urine WBC (Auto) Urine Creatinine Salicylates Acetaminophen Crossmatch 04/18/19 04/18/19 04/18/19 00:23 04:41 04:41 WBC 19.4 H RBC 3.03 L Hgb 8.6 L Hct 27.5 L MCV MCH MCHC 31 L RDW 16.9 H Plt Count Lymph % (Auto) Craig % (Auto) Eos % (Auto) Lymph # Craig # Eos # Seg Neutrophils % Seg Neuts % (Manual) Lymphocytes % (Manual) Monocytes % (Manual) Eosinophils % (Manual) Nucleated RBC % Seg Neutrophils # Seg Neutrophils # Man Lymphocytes # (Manual) Monocytes # (Manual) Eosinophils # (Manual) PT INR D-Dimer Heparin Anti-Xa Level POC ABG pH ABG pH POC ABG pCO2 POC ABG pO2 ABG pO2 ABG HCO3 ABG O2 Saturation ABG Base Excess ABG Hemoglobin Oxyhemoglobin Sodium 152 H Potassium 3.0 L Chloride Carbon Dioxide BUN 80 H Creatinine 4.3 H Glucose 103 H POC Glucose 115 H Lactic Acid Calcium 11.4 H Ionized Calcium Phosphorus Magnesium Iron TIBC Ferritin Total Bilirubin Direct Bilirubin AST ALT Alkaline Phosphatase Total Creatine Kinase CK-MB (CK-2) Troponin T C-Reactive Protein Serum Total Protein Total Protein Albumin Lysbb-6-Uwgyafsfb Lhbhr-4-Lzazwzizq PEP Interpretation Triglycerides LDL Cholesterol Direct HDL Cholesterol Free T4 PTH Intact Urine WBC (Auto) Urine Creatinine Salicylates Acetaminophen Crossmatch 04/18/19 04/18/19 04/18/19 06:17 12:16 18:10 WBC RBC Hgb Hct MCV MCH MCHC RDW Plt Count Lymph % (Auto) Craig % (Auto) Eos % (Auto) Lymph # Craig # Eos # Seg Neutrophils % Seg Neuts % (Manual) Lymphocytes % (Manual) Monocytes % (Manual) Eosinophils % (Manual) Nucleated RBC % Seg Neutrophils # Seg Neutrophils # Man Lymphocytes # (Manual) Monocytes # (Manual) Eosinophils # (Manual) PT INR D-Dimer Heparin Anti-Xa Level POC ABG pH ABG pH POC ABG pCO2 POC ABG pO2 ABG pO2 ABG HCO3 ABG O2 Saturation ABG Base Excess ABG Hemoglobin Oxyhemoglobin Sodium Potassium Chloride Carbon Dioxide BUN Creatinine Glucose POC Glucose 124 H 119 H 111 H Lactic Acid Calcium Ionized Calcium Phosphorus Magnesium Iron TIBC Ferritin Total Bilirubin Direct Bilirubin AST ALT Alkaline Phosphatase Total Creatine Kinase CK-MB (CK-2) Troponin T C-Reactive Protein Serum Total Protein Total Protein Albumin Qwmqx-6-Bqmbuoqbg Xwnhs-9-Zikoeecun PEP Interpretation Triglycerides LDL Cholesterol Direct HDL Cholesterol Free T4 PTH Intact Urine WBC (Auto) Urine Creatinine Salicylates Acetaminophen Crossmatch 04/19/19 04/19/19 04/20/19 03:49 05:27 09:09 WBC RBC Hgb Hct MCV MCH MCHC RDW Plt Count Lymph % (Auto) Craig % (Auto) Eos % (Auto) Lymph # Craig # Eos # Seg Neutrophils % Seg Neuts % (Manual) Lymphocytes % (Manual) Monocytes % (Manual) Eosinophils % (Manual) Nucleated RBC % Seg Neutrophils # Seg Neutrophils # Man Lymphocytes # (Manual) Monocytes # (Manual) Eosinophils # (Manual) PT INR D-Dimer Heparin Anti-Xa Level POC ABG pH ABG pH POC ABG pCO2 POC ABG pO2 ABG pO2 ABG HCO3 ABG O2 Saturation ABG Base Excess ABG Hemoglobin Oxyhemoglobin Sodium 147 H 150 H Potassium 3.3 L Chloride 108.9 H Carbon Dioxide BUN 45 H 70 H Creatinine 2.9 H 4.1 H Glucose 105 H POC Glucose 124 H Lactic Acid Calcium 10.6 H 11.6 H Ionized Calcium Phosphorus Magnesium Iron TIBC Ferritin Total Bilirubin Direct Bilirubin AST ALT Alkaline Phosphatase Total Creatine Kinase CK-MB (CK-2) Troponin T C-Reactive Protein Serum Total Protein Total Protein Albumin Wqjmu-7-Qqachzgbc Jnlnz-6-Rqfflpqfh PEP Interpretation Triglycerides LDL Cholesterol Direct HDL Cholesterol Free T4 PTH Intact Urine WBC (Auto) Urine Creatinine Salicylates Acetaminophen Crossmatch 04/20/19 04/20/19 04/21/19 12:29 18:45 01:34 WBC RBC Hgb Hct MCV MCH MCHC RDW Plt Count Lymph % (Auto) Craig % (Auto) Eos % (Auto) Lymph # Craig # Eos # Seg Neutrophils % Seg Neuts % (Manual) Lymphocytes % (Manual) Monocytes % (Manual) Eosinophils % (Manual) Nucleated RBC % Seg Neutrophils # Seg Neutrophils # Man Lymphocytes # (Manual) Monocytes # (Manual) Eosinophils # (Manual) PT INR D-Dimer Heparin Anti-Xa Level POC ABG pH ABG pH POC ABG pCO2 POC ABG pO2 ABG pO2 ABG HCO3 ABG O2 Saturation ABG Base Excess ABG Hemoglobin Oxyhemoglobin Sodium Potassium Chloride Carbon Dioxide BUN 40 H Creatinine 2.6 H Glucose 104 H POC Glucose 131 H 134 H Lactic Acid Calcium 11.0 H Ionized Calcium Phosphorus Magnesium Iron TIBC Ferritin Total Bilirubin Direct Bilirubin AST ALT Alkaline Phosphatase Total Creatine Kinase CK-MB (CK-2) Troponin T C-Reactive Protein Serum Total Protein Total Protein Albumin Nahor-1-Vjfghygwk Vxzun-3-Yvwalibnk PEP Interpretation Triglycerides LDL Cholesterol Direct HDL Cholesterol Free T4 PTH Intact Urine WBC (Auto) Urine Creatinine Salicylates Acetaminophen Crossmatch 04/21/19 04/21/19 04/22/19 04:22 04:22 04:24 WBC 14.2 H 14.3 H RBC 3.02 L 3.57 L Hgb 8.7 L 10.1 L Hct 27.2 L 32.1 L MCV MCH MCHC RDW 16.7 H 17.2 H Plt Count Lymph % (Auto) Craig % (Auto) Eos % (Auto) Lymph # Craig # Eos # Seg Neutrophils % Seg Neuts % (Manual) Lymphocytes % (Manual) Monocytes % (Manual) Eosinophils % (Manual) Nucleated RBC % Seg Neutrophils # Seg Neutrophils # Man Lymphocytes # (Manual) Monocytes # (Manual) Eosinophils # (Manual) PT INR D-Dimer Heparin Anti-Xa Level POC ABG pH ABG pH POC ABG pCO2 POC ABG pO2 ABG pO2 ABG HCO3 ABG O2 Saturation ABG Base Excess ABG Hemoglobin Oxyhemoglobin Sodium Potassium Chloride Carbon Dioxide BUN Creatinine Glucose POC Glucose Lactic Acid Calcium Ionized Calcium Phosphorus Magnesium Iron TIBC Ferritin Total Bilirubin Direct Bilirubin AST ALT Alkaline Phosphatase Total Creatine Kinase CK-MB (CK-2) Troponin T C-Reactive Protein Serum Total Protein 5.7 L Total Protein Albumin 2.3 L Ujagk-9-Uyhynwlgf 0.5 H Ablpg-4-Selegntgz 1.0 H PEP Interpretation see below H Triglycerides LDL Cholesterol Direct HDL Cholesterol Free T4 PTH Intact Urine WBC (Auto) Urine Creatinine Salicylates Acetaminophen Crossmatch 04/22/19 04/22/19 04/22/19 04:24 06:37 11:57 WBC RBC Hgb Hct MCV MCH MCHC RDW Plt Count Lymph % (Auto) Craig % (Auto) Eos % (Auto) Lymph # Craig # Eos # Seg Neutrophils % Seg Neuts % (Manual) Lymphocytes % (Manual) Monocytes % (Manual) Eosinophils % (Manual) Nucleated RBC % Seg Neutrophils # Seg Neutrophils # Man Lymphocytes # (Manual) Monocytes # (Manual) Eosinophils # (Manual) PT INR D-Dimer Heparin Anti-Xa Level POC ABG pH ABG pH POC ABG pCO2 POC ABG pO2 ABG pO2 ABG HCO3 ABG O2 Saturation ABG Base Excess ABG Hemoglobin Oxyhemoglobin Sodium Potassium Chloride Carbon Dioxide BUN 54 H Creatinine 3.5 H Glucose POC Glucose 113 H 110 H Lactic Acid Calcium 11.4 H Ionized Calcium Phosphorus Magnesium Iron TIBC Ferritin Total Bilirubin Direct Bilirubin AST ALT Alkaline Phosphatase Total Creatine Kinase CK-MB (CK-2) Troponin T C-Reactive Protein Serum Total Protein Total Protein Albumin Jxapy-0-Pwwrnwzeb Iular-1-Vsicaccme PEP Interpretation Triglycerides LDL Cholesterol Direct HDL Cholesterol Free T4 PTH Intact Urine WBC (Auto) Urine Creatinine Salicylates Acetaminophen Crossmatch 04/22/19 04/23/19 04/23/19 18:33 04:06 04:06 WBC 16.1 H RBC 3.36 L Hgb 9.8 L Hct 30.8 L MCV MCH MCHC RDW 17.7 H Plt Count Lymph % (Auto) 9.9 L Craig % (Auto) Eos % (Auto) Lymph # Craig # Eos # Seg Neutrophils % 84.2 H Seg Neuts % (Manual) Lymphocytes % (Manual) Monocytes % (Manual) Eosinophils % (Manual) Nucleated RBC % Seg Neutrophils # 13.6 H Seg Neutrophils # Man Lymphocytes # (Manual) Monocytes # (Manual) Eosinophils # (Manual) PT INR D-Dimer Heparin Anti-Xa Level POC ABG pH ABG pH POC ABG pCO2 POC ABG pO2 ABG pO2 ABG HCO3 ABG O2 Saturation ABG Base Excess ABG Hemoglobin Oxyhemoglobin Sodium Potassium Chloride Carbon Dioxide BUN 59 H Creatinine 3.8 H Glucose POC Glucose 120 H Lactic Acid Calcium 12.3 H* Ionized Calcium Phosphorus 5.70 H Magnesium Iron TIBC Ferritin Total Bilirubin Direct Bilirubin AST ALT Alkaline Phosphatase Total Creatine Kinase CK-MB (CK-2) Troponin T C-Reactive Protein Serum Total Protein Total Protein Albumin 3.2 L Nwape-5-Efsxfsjpx Xiaoz-3-Wwvitrhii PEP Interpretation Triglycerides LDL Cholesterol Direct HDL Cholesterol Free T4 PTH Intact Urine WBC (Auto) Urine Creatinine Salicylates Acetaminophen Crossmatch 04/23/19 04/24/19 04/24/19 18:06 04:12 04:12 WBC 18.0 H RBC 3.46 L Hgb 9.8 L Hct 31.2 L MCV MCH MCHC 31 L RDW 17.5 H Plt Count Lymph % (Auto) 11.1 L Craig % (Auto) Eos % (Auto) Lymph # Craig # Eos # Seg Neutrophils % 81.9 H Seg Neuts % (Manual) Lymphocytes % (Manual) Monocytes % (Manual) Eosinophils % (Manual) Nucleated RBC % Seg Neutrophils # 14.7 H Seg Neutrophils # Man Lymphocytes # (Manual) Monocytes # (Manual) Eosinophils # (Manual) PT INR D-Dimer Heparin Anti-Xa Level POC ABG pH ABG pH POC ABG pCO2 POC ABG pO2 ABG pO2 ABG HCO3 ABG O2 Saturation ABG Base Excess ABG Hemoglobin Oxyhemoglobin Sodium Potassium Chloride Carbon Dioxide BUN 56 H Creatinine 3.6 H Glucose POC Glucose 124 H Lactic Acid Calcium 12.6 H* Ionized Calcium Phosphorus Magnesium Iron TIBC Ferritin Total Bilirubin Direct Bilirubin AST ALT Alkaline Phosphatase Total Creatine Kinase CK-MB (CK-2) Troponin T C-Reactive Protein Serum Total Protein Total Protein Albumin 3.2 L Fnupf-7-Pekdlpzjz Xdqxm-4-Omhknoqcv PEP Interpretation Triglycerides LDL Cholesterol Direct HDL Cholesterol Free T4 PTH Intact Urine WBC (Auto) Urine Creatinine Salicylates Acetaminophen Crossmatch 04/24/19 04/24/19 04/25/19 06:21 11:47 05:58 WBC 18.0 H RBC 2.98 L Hgb 8.3 L Hct 26.5 L MCV MCH MCHC 31 L RDW 17.9 H Plt Count Lymph % (Auto) 10.1 L Craig % (Auto) Eos % (Auto) Lymph # Craig # 0.9 H Eos # Seg Neutrophils % 82.8 H Seg Neuts % (Manual) Lymphocytes % (Manual) Monocytes % (Manual) Eosinophils % (Manual) Nucleated RBC % Seg Neutrophils # 15.0 H Seg Neutrophils # Man Lymphocytes # (Manual) Monocytes # (Manual) Eosinophils # (Manual) PT INR D-Dimer Heparin Anti-Xa Level POC ABG pH ABG pH POC ABG pCO2 POC ABG pO2 ABG pO2 ABG HCO3 ABG O2 Saturation ABG Base Excess ABG Hemoglobin Oxyhemoglobin Sodium Potassium Chloride Carbon Dioxide BUN Creatinine Glucose POC Glucose 132 H 106 H Lactic Acid Calcium Ionized Calcium Phosphorus Magnesium Iron TIBC Ferritin Total Bilirubin Direct Bilirubin AST ALT Alkaline Phosphatase Total Creatine Kinase CK-MB (CK-2) Troponin T C-Reactive Protein Serum Total Protein Total Protein Albumin Cglba-[id number] Acoav-4-Glqwchjzg PEP Interpretation Triglycerides LDL Cholesterol Direct HDL Cholesterol Free T4 PTH Intact Urine WBC (Auto) Urine Creatinine Salicylates Acetaminophen Crossmatch 04/25/19 04/26/19 04/26/19 05:58 05:57 06:08 WBC RBC Hgb Hct MCV MCH MCHC RDW Plt Count Lymph % (Auto) Craig % (Auto) Eos % (Auto) Lymph # Craig # Eos # Seg Neutrophils % Seg Neuts % (Manual) Lymphocytes % (Manual) Monocytes % (Manual) Eosinophils % (Manual) Nucleated RBC % Seg Neutrophils # Seg Neutrophils # Man Lymphocytes # (Manual) Monocytes # (Manual) Eosinophils # (Manual) PT INR D-Dimer Heparin Anti-Xa Level POC ABG pH ABG pH POC ABG pCO2 POC ABG pO2 ABG pO2 ABG HCO3 ABG O2 Saturation ABG Base Excess ABG Hemoglobin Oxyhemoglobin Sodium Potassium 3.2 L Chloride Carbon Dioxide BUN 52 H 48 H Creatinine 3.2 H 2.9 H Glucose 108 H 112 H POC Glucose 109 H Lactic Acid Calcium 11.4 H 12.5 H* Ionized Calcium Phosphorus 5.90 H Magnesium Iron TIBC Ferritin Total Bilirubin Direct Bilirubin AST ALT Alkaline Phosphatase Total Creatine Kinase CK-MB (CK-2) Troponin T C-Reactive Protein Serum Total Protein Total Protein Albumin 3.0 L Iswyo-3-Kbsphttcm Wkxur-4-Rhtpmgddc PEP Interpretation Triglycerides LDL Cholesterol Direct HDL Cholesterol Free T4 PTH Intact Urine WBC (Auto) Urine Creatinine Salicylates Acetaminophen Crossmatch 04/26/19 04/26/19 04/27/19 07:22 13:39 05:05 WBC 11.9 H RBC 3.01 L Hgb 8.6 L Hct 26.3 L MCV MCH MCHC RDW 17.6 H Plt Count Lymph % (Auto) 11.9 L Craig % (Auto) Eos % (Auto) Lymph # Craig # Eos # Seg Neutrophils % 78.3 H Seg Neuts % (Manual) Lymphocytes % (Manual) Monocytes % (Manual) Eosinophils % (Manual) Nucleated RBC % Seg Neutrophils # 9.4 H Seg Neutrophils # Man Lymphocytes # (Manual) Monocytes # (Manual) Eosinophils # (Manual) PT INR D-Dimer Heparin Anti-Xa Level POC ABG pH ABG pH POC ABG pCO2 POC ABG pO2 ABG pO2 ABG HCO3 ABG O2 Saturation ABG Base Excess ABG Hemoglobin Oxyhemoglobin Sodium Potassium Chloride Carbon Dioxide BUN 46 H Creatinine 2.8 H Glucose POC Glucose Lactic Acid Calcium > 13.0 H* 12.2 H* Ionized Calcium Phosphorus Magnesium Iron TIBC Ferritin Total Bilirubin Direct Bilirubin AST ALT Alkaline Phosphatase Total Creatine Kinase CK-MB (CK-2) Troponin T C-Reactive Protein Serum Total Protein Total Protein Albumin Gysks-8-Weabbekbq Ohowg-2-Yaybajmug PEP Interpretation Triglycerides LDL Cholesterol Direct HDL Cholesterol Free T4 PTH Intact Urine WBC (Auto) Urine Creatinine Salicylates Acetaminophen Crossmatch 04/27/19 04/28/19 04/29/19 05:05 05:17 14:14 WBC RBC Hgb Hct MCV MCH MCHC RDW Plt Count Lymph % (Auto) Craig % (Auto) Eos % (Auto) Lymph # Craig # Eos # Seg Neutrophils % Seg Neuts % (Manual) Lymphocytes % (Manual) Monocytes % (Manual) Eosinophils % (Manual) Nucleated RBC % Seg Neutrophils # Seg Neutrophils # Man Lymphocytes # (Manual) Monocytes # (Manual) Eosinophils # (Manual) PT INR D-Dimer Heparin Anti-Xa Level POC ABG pH ABG pH POC ABG pCO2 POC ABG pO2 ABG pO2 ABG HCO3 ABG O2 Saturation ABG Base Excess ABG Hemoglobin Oxyhemoglobin Sodium 136 L Potassium 3.2 L 3.4 L Chloride Carbon Dioxide BUN 40 H 34 H 33 H Creatinine 2.5 H 2.0 H 1.9 H Glucose 113 H 107 H POC Glucose Lactic Acid Calcium 12.3 H* 12.1 H* 11.5 H Ionized Calcium Phosphorus Magnesium Iron TIBC Ferritin Total Bilirubin Direct Bilirubin AST ALT Alkaline Phosphatase Total Creatine Kinase CK-MB (CK-2) Troponin T C-Reactive Protein Serum Total Protein Total Protein 6.2 L Albumin 2.8 L Zxduo-2-Sthbzvpji Xnomv-8-Mkmjiwuek PEP Interpretation Triglycerides LDL Cholesterol Direct HDL Cholesterol Free T4 PTH Intact Urine WBC (Auto) Urine Creatinine Salicylates Acetaminophen Crossmatch 04/29/19 04/29/19 04/30/19 14:14 14:14 06:47 WBC RBC Hgb Hct MCV MCH MCHC RDW Plt Count Lymph % (Auto) Craig % (Auto) Eos % (Auto) Lymph # Craig # Eos # Seg Neutrophils % Seg Neuts % (Manual) Lymphocytes % (Manual) Monocytes % (Manual) Eosinophils % (Manual) Nucleated RBC % Seg Neutrophils # Seg Neutrophils # Man Lymphocytes # (Manual) Monocytes # (Manual) Eosinophils # (Manual) PT INR D-Dimer Heparin Anti-Xa Level POC ABG pH ABG pH POC ABG pCO2 POC ABG pO2 ABG pO2 ABG HCO3 ABG O2 Saturation ABG Base Excess ABG Hemoglobin Oxyhemoglobin Sodium Potassium 3.2 L Chloride Carbon Dioxide 21 L BUN 26 H Creatinine 1.8 H Glucose POC Glucose Lactic Acid Calcium 10.8 H Ionized Calcium 7.2 H* Phosphorus Magnesium Iron TIBC Ferritin Total Bilirubin Direct Bilirubin AST ALT Alkaline Phosphatase Total Creatine Kinase CK-MB (CK-2) Troponin T C-Reactive Protein Serum Total Protein Total Protein Albumin Scurh-5-Umrmootyc Jmwhh-5-Ybrnsiknx PEP Interpretation Triglycerides LDL Cholesterol Direct HDL Cholesterol Free T4 PTH Intact 8.83 L Urine WBC (Auto) Urine Creatinine Salicylates Acetaminophen Crossmatch 04/30/19 05/01/19 05/01/19 12:17 06:52 06:52 WBC 15.4 H RBC 3.01 L Hgb 8.4 L Hct 26.2 L MCV MCH MCHC RDW 17.0 H Plt Count Lymph % (Auto) 8.4 L Craig % (Auto) 8.9 H Eos % (Auto) Lymph # Craig # 1.4 H Eos # 0.5 H Seg Neutrophils % 78.7 H Seg Neuts % (Manual) Lymphocytes % (Manual) Monocytes % (Manual) Eosinophils % (Manual) Nucleated RBC % Seg Neutrophils # 12.1 H Seg Neutrophils # Man Lymphocytes # (Manual) Monocytes # (Manual) Eosinophils # (Manual) PT INR D-Dimer Heparin Anti-Xa Level POC ABG pH ABG pH POC ABG pCO2 POC ABG pO2 ABG pO2 ABG HCO3 ABG O2 Saturation ABG Base Excess ABG Hemoglobin Oxyhemoglobin Sodium Potassium 3.0 L Chloride Carbon Dioxide BUN 22 H Creatinine Glucose POC Glucose 106 H Lactic Acid Calcium 11.2 H Ionized Calcium Phosphorus Magnesium Iron TIBC Ferritin Total Bilirubin Direct Bilirubin AST ALT Alkaline Phosphatase Total Creatine Kinase CK-MB (CK-2) Troponin T C-Reactive Protein Serum Total Protein Total Protein Albumin 3.0 L Qdjcp-0-Gnzgfujld Dxofw-3-Votowmypg PEP Interpretation Triglycerides LDL Cholesterol Direct HDL Cholesterol Free T4 PTH Intact Urine WBC (Auto) Urine Creatinine Salicylates Acetaminophen Crossmatch 05/01/19 05/01/19 05/02/19 06:52 18:40 05:32 WBC RBC Hgb Hct MCV MCH MCHC RDW Plt Count Lymph % (Auto) Craig % (Auto) Eos % (Auto) Lymph # Craig # Eos # Seg Neutrophils % Seg Neuts % (Manual) Lymphocytes % (Manual) Monocytes % (Manual) Eosinophils % (Manual) Nucleated RBC % Seg Neutrophils # Seg Neutrophils # Man Lymphocytes # (Manual) Monocytes # (Manual) Eosinophils # (Manual) PT INR D-Dimer Heparin Anti-Xa Level POC ABG pH ABG pH POC ABG pCO2 POC ABG pO2 ABG pO2 ABG HCO3 ABG O2 Saturation ABG Base Excess ABG Hemoglobin Oxyhemoglobin Sodium Potassium Chloride Carbon Dioxide BUN Creatinine Glucose POC Glucose 169 H 109 H Lactic Acid Calcium Ionized Calcium Phosphorus Magnesium Iron TIBC Ferritin Total Bilirubin Direct Bilirubin AST ALT Alkaline Phosphatase Total Creatine Kinase CK-MB (CK-2) Troponin T C-Reactive Protein Serum Total Protein 5.7 L Total Protein Albumin 2.5 L Mfxmg-7-Ifejpwzge 0.5 H Fjoee-1-Wxeyuvgst PEP Interpretation see below H Triglycerides LDL Cholesterol Direct HDL Cholesterol Free T4 PTH Intact Urine WBC (Auto) Urine Creatinine Salicylates Acetaminophen Crossmatch 05/02/19 05/02/19 05/02/19 05:57 05:57 11:43 WBC 14.2 H RBC 2.96 L Hgb 8.3 L Hct 26.0 L MCV MCH MCHC RDW 16.8 H Plt Count Lymph % (Auto) Craig % (Auto) Eos % (Auto) Lymph # Craig # Eos # Seg Neutrophils % Seg Neuts % (Manual) Lymphocytes % (Manual) Monocytes % (Manual) Eosinophils % (Manual) Nucleated RBC % Seg Neutrophils # Seg Neutrophils # Man Lymphocytes # (Manual) Monocytes # (Manual) Eosinophils # (Manual) PT INR D-Dimer Heparin Anti-Xa Level POC ABG pH ABG pH POC ABG pCO2 POC ABG pO2 ABG pO2 ABG HCO3 ABG O2 Saturation ABG Base Excess ABG Hemoglobin Oxyhemoglobin Sodium 136 L Potassium 3.5 L Chloride Carbon Dioxide BUN 21 H Creatinine Glucose POC Glucose 108 H Lactic Acid Calcium 11.1 H Ionized Calcium Phosphorus Magnesium Iron TIBC Ferritin Total Bilirubin Direct Bilirubin AST ALT Alkaline Phosphatase Total Creatine Kinase CK-MB (CK-2) Troponin T C-Reactive Protein Serum Total Protein Total Protein Albumin Annvw-3-Mehjyqbau Vxvsb-8-Wntzcgvqb PEP Interpretation Triglycerides LDL Cholesterol Direct HDL Cholesterol Free T4 PTH Intact Urine WBC (Auto) Urine Creatinine Salicylates Acetaminophen Crossmatch 05/03/19 05/03/19 05/04/19 05:37 05:37 06:49 WBC 12.7 H 11.1 H RBC 3.01 L 3.07 L Hgb 8.3 L 8.6 L Hct 26.1 L 26.6 L MCV MCH MCHC RDW 16.9 H 17.3 H Plt Count Lymph % (Auto) Craig % (Auto) 9.0 H Eos % (Auto) 4.9 H Lymph # Craig # 1.0 H Eos # 0.5 H Seg Neutrophils % Seg Neuts % (Manual) Lymphocytes % (Manual) Monocytes % (Manual) Eosinophils % (Manual) Nucleated RBC % Seg Neutrophils # 7.8 H Seg Neutrophils # Man Lymphocytes # (Manual) Monocytes # (Manual) Eosinophils # (Manual) PT INR D-Dimer Heparin Anti-Xa Level POC ABG pH ABG pH POC ABG pCO2 POC ABG pO2 ABG pO2 ABG HCO3 ABG O2 Saturation ABG Base Excess ABG Hemoglobin Oxyhemoglobin Sodium 135 L Potassium 3.3 L Chloride Carbon Dioxide BUN Creatinine Glucose POC Glucose Lactic Acid Calcium 10.9 H Ionized Calcium Phosphorus Magnesium 1.50 L Iron TIBC Ferritin Total Bilirubin Direct Bilirubin AST ALT Alkaline Phosphatase Total Creatine Kinase CK-MB (CK-2) Troponin T C-Reactive Protein Serum Total Protein Total Protein Albumin Atrbw-5-Bhnlcwqsm Jfwnn-0-Vvaruxnsu PEP Interpretation Triglycerides LDL Cholesterol Direct HDL Cholesterol Free T4 PTH Intact Urine WBC (Auto) Urine Creatinine Salicylates Acetaminophen Crossmatch 05/04/19 05/04/19 05/04/19 06:49 06:49 11:58 WBC RBC Hgb Hct MCV MCH MCHC RDW Plt Count Lymph % (Auto) Craig % (Auto) Eos % (Auto) Lymph # Craig # Eos # Seg Neutrophils % Seg Neuts % (Manual) Lymphocytes % (Manual) Monocytes % (Manual) Eosinophils % (Manual) Nucleated RBC % Seg Neutrophils # Seg Neutrophils # Man Lymphocytes # (Manual) Monocytes # (Manual) Eosinophils # (Manual) PT 15.5 H INR 1.24 H D-Dimer Heparin Anti-Xa Level POC ABG pH ABG pH POC ABG pCO2 POC ABG pO2 ABG pO2 ABG HCO3 ABG O2 Saturation ABG Base Excess ABG Hemoglobin Oxyhemoglobin Sodium Potassium Chloride Carbon Dioxide 19 L BUN Creatinine Glucose POC Glucose 111 H Lactic Acid Calcium 10.7 H Ionized Calcium Phosphorus Magnesium Iron TIBC Ferritin Total Bilirubin Direct Bilirubin AST ALT Alkaline Phosphatase Total Creatine Kinase CK-MB (CK-2) Troponin T C-Reactive Protein Serum Total Protein Total Protein Albumin Ceern-7-Xlpqpkmom Tiacb-2-Byocayztt PEP Interpretation Triglycerides LDL Cholesterol Direct HDL Cholesterol Free T4 PTH Intact Urine WBC (Auto) Urine Creatinine Salicylates Acetaminophen Crossmatch 05/05/19 05/05/19 05/07/19 06:14 06:14 05:55 WBC 11.5 H 12.0 H RBC 3.08 L 3.33 L Hgb 8.5 L 9.2 L Hct 26.5 L 28.5 L MCV MCH MCHC RDW 17.1 H 17.6 H Plt Count Lymph % (Auto) Craig % (Auto) Eos % (Auto) 8.2 H Lymph # Craig # Eos # 1.0 H Seg Neutrophils % Seg Neuts % (Manual) Lymphocytes % (Manual) Monocytes % (Manual) Eosinophils % (Manual) Nucleated RBC % Seg Neutrophils # 8.2 H Seg Neutrophils # Man Lymphocytes # (Manual) Monocytes # (Manual) Eosinophils # (Manual) PT INR D-Dimer Heparin Anti-Xa Level POC ABG pH ABG pH POC ABG pCO2 POC ABG pO2 ABG pO2 ABG HCO3 ABG O2 Saturation ABG Base Excess ABG Hemoglobin Oxyhemoglobin Sodium 136 L Potassium Chloride Carbon Dioxide 21 L BUN Creatinine Glucose POC Glucose Lactic Acid Calcium 10.3 H Ionized Calcium Phosphorus Magnesium Iron TIBC Ferritin Total Bilirubin Direct Bilirubin AST ALT Alkaline Phosphatase Total Creatine Kinase CK-MB (CK-2) Troponin T C-Reactive Protein Serum Total Protein Total Protein Albumin Rtxby-8-Ygnnkajot Wamkr-5-Jbranonis PEP Interpretation Triglycerides LDL Cholesterol Direct HDL Cholesterol Free T4 PTH Intact Urine WBC (Auto) Urine Creatinine Salicylates Acetaminophen Crossmatch 05/07/19 05/08/19 05/08/19 05:55 07:27 07:27 WBC 12.5 H RBC 3.50 L Hgb 9.4 L Hct 30.4 L MCV MCH 27 L MCHC 31 L RDW 17.2 H Plt Count Lymph % (Auto) Craig % (Auto) Eos % (Auto) 10.3 H Lymph # Craig # Eos # 1.3 H Seg Neutrophils % Seg Neuts % (Manual) Lymphocytes % (Manual) Monocytes % (Manual) Eosinophils % (Manual) Nucleated RBC % Seg Neutrophils # 8.7 H Seg Neutrophils # Man Lymphocytes # (Manual) Monocytes # (Manual) Eosinophils # (Manual) PT INR D-Dimer Heparin Anti-Xa Level POC ABG pH ABG pH POC ABG pCO2 POC ABG pO2 ABG pO2 ABG HCO3 ABG O2 Saturation ABG Base Excess ABG Hemoglobin Oxyhemoglobin Sodium Potassium 3.5 L Chloride Carbon Dioxide 20 L 20 L BUN Creatinine Glucose POC Glucose Lactic Acid Calcium 10.7 H 10.7 H Ionized Calcium Phosphorus Magnesium Iron TIBC Ferritin Total Bilirubin Direct Bilirubin AST ALT Alkaline Phosphatase Total Creatine Kinase CK-MB (CK-2) Troponin T C-Reactive Protein Serum Total Protein Total Protein Albumin 3.2 L 3.4 L Wgrpf-6-Umwakqjon Adgmd-1-Ytqmvnrft PEP Interpretation Triglycerides LDL Cholesterol Direct HDL Cholesterol Free T4 PTH Intact Urine WBC (Auto) Urine Creatinine Salicylates Acetaminophen Crossmatch 05/09/19 05/09/19 05/10/19 05:41 05:41 06:42 WBC 11.7 H RBC 3.27 L Hgb 9.2 L Hct 27.9 L MCV MCH MCHC RDW 17.8 H Plt Count Lymph % (Auto) Craig % (Auto) Eos % (Auto) 14.3 H Lymph # Craig # Eos # 1.7 H Seg Neutrophils % Seg Neuts % (Manual) Lymphocytes % (Manual) Monocytes % (Manual) Eosinophils % (Manual) Nucleated RBC % Seg Neutrophils # Seg Neutrophils # Man Lymphocytes # (Manual) Monocytes # (Manual) Eosinophils # (Manual) PT INR 1.17 H D-Dimer Heparin Anti-Xa Level POC ABG pH ABG pH POC ABG pCO2 POC ABG pO2 ABG pO2 ABG HCO3 ABG O2 Saturation ABG Base Excess ABG Hemoglobin Oxyhemoglobin Sodium 136 L Potassium Chloride Carbon Dioxide 21 L BUN Creatinine Glucose POC Glucose Lactic Acid Calcium 10.6 H Ionized Calcium Phosphorus Magnesium Iron TIBC Ferritin Total Bilirubin Direct Bilirubin AST ALT Alkaline Phosphatase Total Creatine Kinase CK-MB (CK-2) Troponin T C-Reactive Protein Serum Total Protein Total Protein Albumin 3.3 L Lruxw-1-Brsjjcaug Rbpmn-8-Gayvcybhj PEP Interpretation Triglycerides LDL Cholesterol Direct HDL Cholesterol Free T4 PTH Intact Urine WBC (Auto) Urine Creatinine Salicylates Acetaminophen Crossmatch 05/10/19 05/11/19 05/13/19 06:42 04:40 08:32 WBC 11.8 H RBC 3.48 L Hgb 9.5 L Hct 30.0 L MCV MCH 27 L MCHC RDW 18.0 H Plt Count Lymph % (Auto) Craig % (Auto) Eos % (Auto) Lymph # Craig # Eos # Seg Neutrophils % Seg Neuts % (Manual) 73.0 H Lymphocytes % (Manual) 11.0 L Monocytes % (Manual) Eosinophils % (Manual) 12.0 H Nucleated RBC % Seg Neutrophils # Seg Neutrophils # Man 8.6 H Lymphocytes # (Manual) Monocytes # (Manual) Eosinophils # (Manual) 1.4 H PT INR D-Dimer Heparin Anti-Xa Level POC ABG pH ABG pH POC ABG pCO2 POC ABG pO2 ABG pO2 ABG HCO3 ABG O2 Saturation ABG Base Excess ABG Hemoglobin Oxyhemoglobin Sodium Potassium Chloride Carbon Dioxide 21 L 20 L BUN Creatinine Glucose POC Glucose Lactic Acid Calcium Ionized Calcium Phosphorus Magnesium Iron TIBC Ferritin Total Bilirubin Direct Bilirubin AST ALT Alkaline Phosphatase Total Creatine Kinase CK-MB (CK-2) Troponin T C-Reactive Protein Serum Total Protein Total Protein Albumin Lbfum-7-Eqstmunfr Uzdfv-4-Ixzocthdt PEP Interpretation Triglycerides LDL Cholesterol Direct HDL Cholesterol Free T4 PTH Intact Urine WBC (Auto) Urine Creatinine Salicylates Acetaminophen Crossmatch 05/13/19 05/14/19 08:32 08:12 WBC RBC Hgb Hct MCV MCH MCHC RDW Plt Count Lymph % (Auto) Craig % (Auto) Eos % (Auto) Lymph # Craig # Eos # Seg Neutrophils % Seg Neuts % (Manual) Lymphocytes % (Manual) Monocytes % (Manual) Eosinophils % (Manual) Nucleated RBC % Seg Neutrophils # Seg Neutrophils # Man Lymphocytes # (Manual) Monocytes # (Manual) Eosinophils # (Manual) PT INR D-Dimer Heparin Anti-Xa Level POC ABG pH ABG pH POC ABG pCO2 POC ABG pO2 ABG pO2 ABG HCO3 ABG O2 Saturation ABG Base Excess ABG Hemoglobin Oxyhemoglobin Sodium Potassium Chloride Carbon Dioxide 17 L 18 L BUN Creatinine Glucose 73 L POC Glucose Lactic Acid Calcium Ionized Calcium Phosphorus Magnesium 1.60 L Iron TIBC Ferritin Total Bilirubin Direct Bilirubin AST ALT Alkaline Phosphatase Total Creatine Kinase CK-MB (CK-2) Troponin T C-Reactive Protein Serum Total Protein Total Protein Albumin 3.3 L Quqjw-3-Pjukfnylb Hoijb-0-Zhzeltipj PEP Interpretation Triglycerides LDL Cholesterol Direct HDL Cholesterol Free T4 PTH Intact Urine WBC (Auto) Urine Creatinine Salicylates Acetaminophen Crossmatch Allied health notes reviewed: nursing
[2019-05-19] MEDS: HYDROcodone/ACETAMINOPHEN 5-325 MG TAB PO PRN ×3 (05:09→19:10)
[2019-05-19] MEDS: GABAPENTIN 300 MG CAP PO SCH ×3 (05:10→21:54)
[2019-05-19 07:52] LABS: BUN/Creatinine Ratio 13; Blood Urea Nitrogen 10 mg/dL (9-20); Calcium 8.8 mg/dL (8.4-10.2); Hemolysis Index 0
--- NOTE | 2019-05-19 09:18 | Progress Note ---
Assessment and Plan 1. Acute kidney injury: Vasomotor RUBEN in the setting of shock / volume depletion / Rhabdo. CT abdomen was negative for obstructive nephropathy. Patient was started on hemodialysis on 03/18/19 due to worsening metabolic acidosis and hyperkalemia. Hemodialysis: 03/18, 03/19, 03/20, 03/22, 03/23, 03/24, 03/26, 03/28, 03/29, 03/31, 04/02, 04/04, 04/06, 04/09, 04/11, 04/13, 04/18, 04/20. Renal function has improved. Monitor renal function. Avoid nephrotoxic agents. 2. FEN: Hypercalcemia, improved now. Multifactorial etiology. Contributing factor includes immobilization. Patient previously received high dose Vitamin D and activated Vit.D for hypocalcemia. S/p Pamidronate on 04/26 and Calcitonin. Monitor lytes. 3. Septic shock: Resolved. 4. Suspected CAD: Lexiscan MPI stress test done 05/03 showed small mild to moderate reversible anterior and lateral perfusion defect, EF 44%. Cardiac cath with normal coronaries. 5. A.fib with RVR: Remain in SR. 6. Respiratory failure: Improved. 7. Severe anemia: S/p PRBC and Epogen. 8. Elevated transaminases: Improved. 9. Encephalopathy: Improved. 10. Peripheral neuropathy: Seen by Neurology. 11. 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 Will sign off. Examination: General appearance: well-developed, appears stated age, not in distress HEENT: Atraumatic EYES: STIVEN Neck: supple Respiratory: ctab Cardiology: regular, S1S2 heard, no murmur Gastrointestinal: soft, BS heard, not tender Integumentary: L elbow area wound Neurologic: alert, follows command, conversing, oriented Ext: L UE edema is better Subjective Date of service: 05/19/19 Principal diagnosis: Septic Shock; Ac. hypoxemic resp failure; Renzo. PNA; Rhabdomyolysis; RUBEN Interval history: Patient was seen and examined at the bedside. Doing much better. Objective - Vital Signs Vital signs: Vital Signs - 12hr 05/18/19 05/19/19 05/19/19 23:16 05:08 05:09 Temperature 97.9 F 97.2 F L Pulse Rate 78 78 Respiratory 16 18 18 Rate Blood Pressure 114/72 120/78 O2 Sat by Pulse 97 100 Oximetry - Lab 05/13/19 08:32 05/19/19 06:47 Most recent lab results ABG pH 7.388 pH Units (7.350-7.450) 04/06/19 05:20 ABG pCO2 38.5 mm Hg 04/06/19 05:20 ABG pO2 104.0 mm Hg (80.0-90.0) H 04/06/19 05:20 ABG HCO3 22.6 mmol/L (20.0-26.0) 04/06/19 05:20 ABG O2 Saturation 97.8 % (95.0-99.0) 04/06/19 05:20 Calcium 8.8 mg/dL (8.4-10.2) 05/19/19 06:47 Phosphorus 3.00 mg/dL (2.5-4.5) 05/13/19 08:32 Magnesium 1.80 mg/dL (1.7-2.3) 05/19/19 06:47 Urine Creatinine 106.6 mg/dL (0.1-20.0) H 03/17/19 16:05 Urine Sodium 95 mmol/L 03/17/19 16:05 Medications & Allergies - Medications Allergies/Adverse Reactions: Allergies No Known Allergies Allergy (Unverified 03/16/19 17:17) Home Medications: Home Medications Medication Instructions Recorded Confirmed Last Taken Type No Known Home Medications [No 04/28/19 04/28/19 Unknown History Reported Home Medications] Active Medications: Generic Name Dose Route Start Last Admin Trade Name Kirkq PRN Reason Stop Dose Admin Acetaminophen 650 mg 04/02/19 23:26 05/08/19 21:01 Tylenol PO 650 mg Q4H PRN Administration Pain, Mild (1-3),temp>100.5 Acetaminophen/Hydrocodone Bitart 1 each 05/02/19 11:50 05/19/19 05:09 Petty 5/325 PO 1 each Q6H PRN Administration Pain, Moderate (4-6) Al Hydrox/Mg Hydrox/Simethicone 15 ml 04/30/19 15:15 04/30/19 15:53 Alum-Mag Hydrox-Simeth 728-888-25gw/5ml PO 15 ml Q4H PRN Administration Indigestion Albuterol 2.5 mg 03/29/19 13:08 Proventil IH Q4HRT PRN Shortness Of Breath Lipase/Protease/Amylase 1 each 04/20/19 13:17 Pancrekarly Purcell 10,500 Unit FEEDTUBE PRN PRN For Clogged Feeding Tube Bacitracin 1 applic 04/17/19 08:00 Antibiotic Oint TP Q4H PRN upper lip sore/open Dextrose 50 gm 04/17/19 08:00 D50w (25gm) Vial IV Q1H PRN Hypoglycemia Gabapentin 300 mg 05/17/19 14:40 05/19/19 05:10 Gabapentin PO 300 mg Q8HR PAOLO Administration Hydrophilic Ointment 1 applic 03/16/19 15:50 04/19/19 18:24 Vaseline Lip Therapy TP 1 applic Q2HR PRN Administration Dry Lips Sodium Chloride 500 mls @ 50 mls/hr 05/10/19 08:00 05/11/19 06:55 Nacl 0.9% 500 Ml IV 50 mls/hr DIRECT PAOLO Administration Melatonin 5 mg 04/26/19 21:00 05/15/19 21:09 Melatonin PO 5 mg QHS PRN Administration Sleep Metoprolol Succinate 50 mg 05/10/19 10:00 05/18/19 09:40 Metoprolol Xl PO 50 mg QDAY PAOLO Administration Multi-Ingred Cream/Lotion/Oil/Oint 1 applic 03/16/19 15:50 03/19/19 20:10 Artificial Tears Ophth Oint OU 1 applic Q4HR PRN Administration Dry Eye(s) Pantoprazole Sodium 40 mg 05/07/19 22:00 05/18/19 21:04 Protonix PO 40 mg BID PAOLO Administration Simple Syrup 15 ml 04/20/19 13:17 Simple Syrup FEEDTUBE PRN PRN Hypoglycemia Simple Syrup 30 ml 04/20/19 13:29 05/01/19 17:57 Simple Syrup FEEDTUBE 30 ml PRN PRN Administration Hypoglycemia Sodium Bicarbonate 325 mg 04/20/19 13:17 04/27/19 11:03 Sodium Bicarbonate FEEDTUBE 325 mg PRN PRN Administration For Clogged Feeding Tube
[2019-05-19] MEDS: PANTOPRAZOLE 40 MG TAB PO SCH ×2 (09:49→21:54)
[2019-05-19] MEDS: METOPROLOL SUCCINATE XL 50 MG TAB PO SCH (09:49)
--- NOTE | 2019-05-19 12:19 | Progress Note ---
Assessment and Plan Assessment and plan: Peripheral neuropathy. Neurology following. Patient will need EMG/MCV to rule out axonal versus demyelinating disease. Workup can be done as an outpatient. Bilateral lower extremity DVTs. Patient will be scheduled for placement of IVC filter. 3 months after discharge, the patient will need to be scheduled for IVC filter removal with repeat ultrasound at that time to evaluate the patient's bilateral lower extremity DVTs. - Acute hypoxic respiratory failure. Was intubated, but now extubated. Now on Room air. Continue BiPAP as clinically indicated. - Atrial fibrillation. Resolved. Continue Metoprolol. Cardiology following. No recurrence of AFib or VT noted for several weeks since resolution of multiple metabolic derangements and thus no plans for initiation of systemic AC or AICD implantation at this time. - Abnormal Lexiscan stress with ejection fraction of 45% S/p LHC this AM which showed normal coronaries, normal EF. - Acute blood loss anemia. Patient with GI bleed secondary to peptic ulcer disease. EGD completed per GI. Continue PRBCs as needed. - GI bleed/peptic ulcer disease. Continue PPI. Transfuse PRBCs as needed. - Sepsis/septic shock. Resolved. Continue to monitor off antibiotics - Ischemic hepatitis/shock liver. Resolved. Viral hepatitis panel negative. - Acute kidney injury. Resolved. Patient's last hemodialysis 04/20/19. Continue to monitor BMP. Avoid nephrotoxic agents. - Toxic metabolic encephalopathy. Resolved. - Swelling both upper ext L>R Doppler US : no DVT LUE - Hypokalemia. Replete potassium as needed. - Thrombocytopenia. Etiology likely secondary to sepsis. Resolved. - Rhabdomyolysis. CK normalized. Full code status Disposition. Awaiting for arrangements for SNF in [place] History Interval history: Patient seen and examined medical records reviewed Patient complains of generalized weakness, lower extremity pain Asking for more pain medications Vital signs noted Hospitalist Physical - Constitutional Vitals: Temp Pulse Resp BP Pulse Ox 98.0 F 78 18 114/80 99 05/19/19 11:30 05/19/19 11:30 05/19/19 11:30 05/19/19 11:30 05/19/19 11:30 General appearance: Present: no acute distress, well-nourished - EENT Eyes: Present: PERRL, EOM intact - Neck Neck: Present: supple, normal ROM - Respiratory Respiratory effort: normal Respiratory: bilateral: diminished, negative: rales, rhonchi, wheezing - Cardiovascular Rhythm: regular Heart Sounds: Present: S1 & S2 - Extremities Extremities: no ischemia, No edema - Abdominal General gastrointestinal: soft, non-tender, non-distended, normal bowel sounds - Integumentary Integumentary: Present: clear, warm - Psychiatric Psychiatric: appropriate mood/affect, cooperative - Neurologic Neurologic: other (lower extremity weakness) Results - Labs CBC & Chem 7: 05/13/19 08:32 05/19/19 06:47 Labs: Laboratory Last Values WBC 11.8 K/mm3 (4.5-11.0) H 05/13/19 08:32 RBC 3.48 M/mm3 (3.65-5.03) L 05/13/19 08:32 Hgb 9.5 gm/dl (11.8-15.2) L 05/13/19 08:32 Hct 30.0 % (35.5-45.6) L 05/13/19 08:32 MCV 86 fl (84-94) 05/13/19 08:32 MCH 27 pg (28-32) L 05/13/19 08:32 MCHC 32 % (32-34) 05/13/19 08:32 RDW 18.0 % (13.2-15.2) H 05/13/19 08:32 Plt Count 227 K/mm3 (140-440) 05/13/19 08:32 Lymph % (Auto) 17.9 % (13.4-35.0) 05/09/19 05:41 Floyd % (Auto) 5.6 % (0.0-7.3) 05/09/19 05:41 Eos % (Auto) Medical Insurance Clerk 05/13/19 08:32 Baso % (Auto) 0.7 % (0.0-1.8) 05/09/19 05:41 Lymph # 2.1 K/mm3 (1.2-5.4) 05/09/19 05:41 Floyd # 0.7 K/mm3 (0.0-0.8) 05/09/19 05:41 Eos # 1.7 K/mm3 (0.0-0.4) H 05/09/19 05:41 Baso # 0.1 K/mm3 (0.0-0.1) 05/09/19 05:41 Add Manual Diff Complete 05/13/19 08:32 Total Counted 100 05/13/19 08:32 Seg Neutrophils % 61.5 % (40.0-70.0) 05/09/19 05:41 Seg Neuts % (Manual) 73.0 % (40.0-70.0) H 05/13/19 08:32 Band Neutrophils % 1.0 % 05/13/19 08:32 Lymphocytes % (Manual) 11.0 % (13.4-35.0) L 05/13/19 08:32 Reactive Lymphs % (Man) 0 % 05/13/19 08:32 Monocytes % (Manual) 1.0 % (0.0-7.3) 05/13/19 08:32 Eosinophils % (Manual) 12.0 % (0.0-4.3) H 05/13/19 08:32 Basophils % (Manual) 1.0 % (0.0-1.8) 05/13/19 08:32 Metamyelocytes % 1.0 % 05/13/19 08:32 Myelocytes % 0 % 05/13/19 08:32 Promyelocytes % 0 % 05/13/19 08:32 Blast Cells % 0 % 05/13/19 08:32 Nucleated RBC % Not Reportable 05/13/19 08:32 Seg Neutrophils # 7.2 K/mm3 (1.8-7.7) 05/09/19 05:41 Seg Neutrophils # Man 8.6 K/mm3 (1.8-7.7) H 05/13/19 08:32 Band Neutrophils # 0.1 K/mm3 05/13/19 08:32 Lymphocytes # (Manual) 1.3 K/mm3 (1.2-5.4) 05/13/19 08:32 Abs React Lymphs (Man) 0.0 K/mm3 05/13/19 08:32 Monocytes # (Manual) 0.1 K/mm3 (0.0-0.8) 05/13/19 08:32 Eosinophils # (Manual) 1.4 K/mm3 (0.0-0.4) H 05/13/19 08:32 Basophils # (Manual) 0.1 K/mm3 (0.0-0.1) 05/13/19 08:32 Metamyelocytes # 0.1 K/mm3 05/13/19 08:32 Myelocytes # 0.0 K/mm3 05/13/19 08:32 Promyelocytes # 0.0 K/mm3 05/13/19 08:32 Blast Cells # 0.0 K/mm3 05/13/19 08:32 WBC Morphology Not Reportable 05/13/19 08:32 Hypersegmented Neuts Not Reportable 05/13/19 08:32 Hyposegmented Neuts Not Reportable 05/13/19 08:32 Hypogranular Neuts Not Reportable 05/13/19 08:32 Smudge Cells Not Reportable 05/13/19 08:32 Toxic Granulation Not Reportable 05/13/19 08:32 Toxic Vacuolation Not Reportable 05/13/19 08:32 Dohle Bodies Not Reportable 05/13/19 08:32 Pelger-Huet Anomaly Not Reportable 05/13/19 08:32 Joyce Rods Not Reportable 05/13/19 08:32 Platelet Estimate Consistent w auto 05/13/19 08:32 Clumped Platelets Not Reportable 05/13/19 08:32 Plt Clumps, EDTA Not Reportable 05/13/19 08:32 Large Platelets Few 05/13/19 08:32 Giant Platelets Not Reportable 05/13/19 08:32 Platelet Satelliting Not Reportable 05/13/19 08:32 Plt Morphology Comment Not Reportable 05/13/19 08:32 RBC Morphology Not Reportable 05/13/19 08:32 Dimorphic RBCs Not Reportable 05/13/19 08:32 Polychromasia Not Reportable 05/13/19 08:32 Hypochromasia Not Reportable 05/13/19 08:32 Poikilocytosis Not Reportable 05/13/19 08:32 Anisocytosis Not Reportable 05/13/19 08:32 Microcytosis Not Reportable 05/13/19 08:32 Macrocytosis Not Reportable 05/13/19 08:32 Spherocytes Not Reportable 05/13/19 08:32 Pappenheimer Bodies Not Reportable 05/13/19 08:32 Sickle Cells Not Reportable 05/13/19 08:32 Target Cells Not Reportable 05/13/19 08:32 Tear Drop Cells Few 05/13/19 08:32 Ovalocytes Not Reportable 05/13/19 08:32 Stomatocytes Few 09/30/19 Unknown Helmet Cells Not Reportable 05/13/19 08:32 Shrestha-[place] Bodies Not Reportable 05/13/19 08:32 [place] Rings Not Reportable 05/13/19 08:32 [place] Cells Not Reportable 05/13/19 08:32 Bite Cells Not Reportable 05/13/19 08:32 Crenated Cell Not Reportable 05/13/19 08:32 Elliptocytes Few 05/13/19 08:32 Acanthocytes (Spur) Not Reportable 05/13/19 08:32 Rouleaux Not Reportable 05/13/19 08:32 Hemoglobin C Crystals Not Reportable 05/13/19 08:32 Schistocytes Not Reportable 05/13/19 08:32 Malaria parasites Not Reportable 05/13/19 08:32 Phil Bodies Not Reportable 05/13/19 08:32 Hem Pathologist Commnt No 05/13/19 08:32 PT 14.8 Sec. (12.2-14.9) 05/10/19 06:42 INR 1.17 (0.87-1.13) H 05/10/19 06:42 APTT 27.9 Sec. (24.2-36.6) 05/10/19 06:42 Fibrinogen 226 mg/dl (211-480) 03/28/19 12:00 D-Dimer 4845.98 ng/mlDDU (0-234) H 03/28/19 12:00 Heparin Anti-Xa Level 0.23 U.I./ml (0.3-0.7) L 03/28/19 05:13 POC ABG pH 7.401 (7.35-7.45) 04/07/19 12:57 ABG pH 7.388 pH Units (7.350-7.450) 04/06/19 05:20 POC ABG pCO2 41.5 (35-45) 04/07/19 12:57 ABG pCO2 38.5 mm Hg 04/06/19 05:20 POC ABG pO2 107 (80-105) H 04/07/19 12:57 ABG pO2 104.0 mm Hg (80.0-90.0) H 04/06/19 05:20 POC ABG HCO3 25.7 (22-26 mml/L) 04/07/19 12:57 ABG HCO3 22.6 mmol/L (20.0-26.0) 04/06/19 05:20 POC ABG Total CO2 27 (23-27mmol/L) 04/07/19 12:57 POC ABG O2 Sat 98 04/07/19 12:57 ABG O2 Saturation 97.8 % (95.0-99.0) 04/06/19 05:20 ABG O2 Content 10.0 (0.0-44) 04/06/19 05:20 POC ABG Base Excess 1 ((-2) - (+3)mmol/L) 04/07/19 12:57 ABG Base Excess -2.1 mmol/L (-2.0-3.0) L 04/06/19 05:20 ABG Hemoglobin 7.3 gm/dl (14.0-18.0) L 04/06/19 05:20 ABG Carboxyhemoglobin 1.7 % (0.0-5.0) 04/06/19 05:20 ABG Methemoglobin 0.6 % (0.0-1.5) 04/06/19 05:20 Oxyhemoglobin 95.5 % (95.0-99.0) 04/06/19 05:20 FiO2 30 % 04/07/19 12:57 Sodium 139 mmol/L (137-145) 05/19/19 06:47 Potassium 4.1 mmol/L (3.6-5.0) 05/19/19 06:47 Chloride 106.8 mmol/L (98-107) 05/19/19 06:47 Carbon Dioxide 18 mmol/L (22-30) L 05/19/19 06:47 Anion Gap 18 mmol/L 05/19/19 06:47 BUN 10 mg/dL (9-20) 05/19/19 06:47 Creatinine 0.8 mg/dL (0.8-1.5) 05/19/19 06:47 Estimated GFR > 60 ml/min 05/19/19 06:47 BUN/Creatinine Ratio 13 % 05/19/19 06:47 Glucose 87 mg/dL (75-100) 05/19/19 06:47 POC Glucose 86 (70-105) 05/11/19 02:24 Lactic Acid 1.90 mmol/L (0.7-2.0) 03/21/19 21:31 Calcium 8.8 mg/dL (8.4-10.2) 05/19/19 06:47 Ionized Calcium 7.2 mg/dL (4.8-5.6) H* 04/29/19 14:14 Phosphorus 3.00 mg/dL (2.5-4.5) 05/13/19 08:32 Magnesium 1.80 mg/dL (1.7-2.3) 05/19/19 06:47 Iron 26 ug/dL (49-181) L 04/02/19 05:03 TIBC 138 mcg/dL (250-450) L 04/02/19 05:03 Ferritin 607.0 ng/mL (13.0-400.0) H 04/02/19 05:03 Total Bilirubin 0.30 mg/dL (0.1-1.2) 05/13/19 08:32 Direct Bilirubin 0.4 mg/dL (0-0.2) H 03/31/19 08:20 Indirect Bilirubin 0.1 mg/dL 03/31/19 08:20 AST 11 units/L (5-40) 05/13/19 08:32 ALT 12 units/L (7-56) 05/13/19 08:32 Alkaline Phosphatase 77 units/L (35-129) 05/13/19 08:32 Total Creatine Kinase 62 units/L (55-170) 04/07/19 05:40 CK-MB (CK-2) 54.3 ng/mL (0.0-4.0) H 03/17/19 07:16 CK-MB (CK-2) Rel Index 0.0 (0-4) 03/17/19 07:16 Troponin T 0.058 ng/mL (0.00-0.029) H 03/17/19 07:16 C-Reactive Protein 7.10 mg/dL (0.00-1.30) H 04/17/19 04:15 Serum Total Protein 5.7 g/dL (6.1-8.1) L 05/01/19 06:52 Total Protein 6.9 g/dL (6.3-8.2) 05/13/19 08:32 Albumin 3.3 g/dL (3.9-5) L 05/13/19 08:32 Albumin/Globulin Ratio 0.9 % 05/13/19 08:32 Fqdwc-1-Eqzjqfcyd 0.5 g/dL (0.2-0.3) H 05/01/19 06:52 Lfewy-2-Uemjeorsw 0.9 g/dL (0.5-0.9) 05/01/19 06:52 Beta Globulins 0.4 g/dL (0.2-0.5) 05/01/19 06:52 Gamma Globulins 1.0 g/dL (0.8-1.7) 05/01/19 06:52 Abnorm Protein Band 1 see below 05/01/19 06:52 PEP Interpretation see below H 05/01/19 06:52 Triglycerides 309 mg/dL (2-149) H 03/29/19 06:22 Cholesterol 88 mg/dL (50-199) 03/16/19 22:32 LDL Cholesterol Direct 10 mg/dL (50-130) L 03/16/19 22:32 HDL Cholesterol 7 mg/dL (40-59) L 03/16/19 22:32 Cholesterol/HDL Ratio 12.57 % 03/16/19 22:32 Vitamin B12 903.0 pg/mL (211-911) 04/02/19 05:03 25-OH Vitamin D Total See scanned result 04/29/19 14:14 25-Hydroxy Vitamin D2 <4 ng/mL 04/29/19 14:14 1,25 Dihydroxy Vit D2 <8 pg/mL 04/29/19 14:14 25-Hydroxy Vitamin D3 11 ng/mL 04/29/19 14:14 1,25 Dihydroxy Vit D3 <8 pg/mL 04/29/19 14:14 Folate 8.05 ng/mL (7.3-26.0) 04/02/19 05:03 Procalcitonin 25.42 ng/mL (<0.15) 03/27/19 19:21 TSH 2.200 mlU/mL (0.270-4.200) 03/16/19 17:05 Free T4 0.72 ng/dL (0.76-1.46) L 03/16/19 17:05 PTH Intact 8.83 pg/mL (15-65) L 04/29/19 14:14 Urine Color Yellow (Yellow) 04/15/19 22:11 Urine Turbidity Clear (Clear) 04/15/19 22:11 Urine pH 6.0 (5.0-7.0) 04/15/19 22:11 Ur Specific [place] 1.010 (1.003-1.030) 04/15/19 22:11 Urine Protein 30 mg/dl mg/dL (Negative) 04/15/19 22:11 Urine Glucose (UA) Neg mg/dL (Negative) 04/15/19 22:11 Urine Ketones Neg mg/dL (Negative) 04/15/19 22:11 Urine Blood Mod (Negative) 04/15/19 22:11 Urine Nitrite Neg (Negative) 04/15/19 22:11 Urine Bilirubin Neg (Negative) 04/15/19 22:11 Urine Urobilinogen < 2.0 mg/dL (<2.0) 04/15/19 22:11 Ur Leukocyte Esterase Neg (Negative) 04/15/19 22:11 Urine WBC (Auto) 4.0 /HPF (0.0-6.0) 04/15/19 22:11 Urine RBC (Auto) 2.0 /HPF (0.0-6.0) 04/15/19 22:11 U Epithel Cells (Auto) < 1.0 /HPF (0-13.0) 04/15/19 22:11 Amorphous Crystals 1+ 04/05/19 16:50 Urine Mucus Few /HPF 03/17/19 16:05 Urine Sperm 2+ /HPF (BLADE GRADER OPERATOR) 03/17/19 16:05 Urine Eosinophils None seen (None Seen) 03/17/19 16:05 Ur Random Creatinine See scanned result 05/01/19 06:15 U Random Total Protein See scanned result 05/01/19 06:15 Urine Creatinine 106.6 mg/dL (0.1-20.0) H 03/17/19 16:05 Protein/Creatinin Ratio See scanned result 05/01/19 06:15 Urine Sodium 95 mmol/L 03/17/19 16:05 U Abnormal Prot Band 1 See scanned result 05/01/19 06:15 U Abnormal Prot Band 2 See scanned result 05/01/19 06:15 U Abnormal Prot Band 3 See scanned result 05/01/19 06:15 Vancomycin Trough 11.5 ug/mL (5.0-20.0) 03/18/19 13:19 Random Vancomycin 10.8 ug/mL (0-40.0) 04/14/19 03:55 Salicylates < 0.3 mg/dL (2.8-20.0) L 03/16/19 17:05 Urine Opiates Screen Presumptive negative 03/17/19 16:05 Urine Methadone Screen Presumptive negative 03/17/19 16:05 Acetaminophen < 5.0 ug/mL (10.0-30.0) L 03/16/19 17:05 Ur Barbiturates Screen Presumptive negative 03/17/19 16:05 Ur Phencyclidine Scrn Presumptive negative 03/17/19 16:05 Ur Amphetamines Screen Presumptive negative 03/17/19 16:05 U Benzodiazepines Scrn Presumptive positive 03/17/19 16:05 Urine Cocaine Screen Presumptive negative 03/17/19 16:05 U Marijuana (THC) Screen Presumptive negative 03/17/19 16:05 Drugs of Abuse Note Disclamer 03/17/19 16:05 Plasma/Serum Alcohol < 0.01 % (0-0.07) 03/16/19 17:05 Immunofix Electrophor see below 05/01/19 06:52 LANDY Screen Negative (Negative) 04/17/19 04:15 Proteinase 3 (PR3) Ab <1.0 AI (<1.0) 04/21/19 04:22 Myeloperoxidase Ab <1.0 AI (<1.0) 04/21/19 04:22 Glomerular Base Mem IgG See scanned result 04/21/19 04:22 Complement C3 150 mg/dL (82-185) 04/17/19 04:15 Complement C4 37 mg/dL (15-53) 04/17/19 04:15 Hepatitis A IgM Ab Non-reactive (NonReactive) 04/18/19 10:02 Hep Bs Antigen Non-reactive (Negative) 04/18/19 10:02 Hep B Core IgM Ab Non-reactive (NonReactive) 04/18/19 10:02 Hepatitis C Antibody Non-reactive (NonReactive) 04/18/19 10:02 HIV 1&2 Antibody Rapid Non react (Non React) 03/17/19 11:52 HIV P24 Antigen Non react (Non React) 03/17/19 11:52 Influenza A (Rapid) Negative (Negative) 03/17/19 17:00 Influenza B (Rapid) Negative (Negative) 03/17/19 17:00 Group A Strep Rapid Negative (Negative) 03/17/19 17:00 Miscellaneous Test Flexitest 1 03/21/19 12:00 Blood Type A POSITIVE 04/02/19 16:34 Antibody Screen Negative 04/02/19 16:34 Crossmatch See Detail 04/02/19 16:34 Active Medications - Current Medications Current Medications: Generic Name Dose Route Start Last Admin Trade Name Freq PRN Reason Stop Dose Admin Acetaminophen 650 mg 04/02/19 23:26 05/08/19 21:01 Tylenol PO 650 mg Q4H PRN Administration Pain, Mild (1-3),temp>100.5 Acetaminophen/Hydrocodone Bitart 1 each 05/02/19 11:50 05/19/19 11:29 [place] 5/325 PO 1 each Q6H PRN Administration Pain, Moderate (4-6) Al Hydrox/Mg Hydrox/Simethicone 15 ml 04/30/19 15:15 04/30/19 15:53 Alum-Mag Hydrox-Simeth [id number]/5ml PO 15 ml Q4H PRN Administration Indigestion Albuterol 2.5 mg 03/29/19 13:08 Proventil IH Q4HRT PRN Shortness Of Breath Lipase/Protease/Amylase 1 each 04/20/19 13:17 Pancreaze 10,500 Unit FEEDTUBE PRN PRN For Clogged Feeding Tube Bacitracin 1 applic 04/17/19 08:00 Antibiotic Oint TP Q4H PRN upper lip sore/open Dextrose 50 gm 04/17/19 08:00 D50w (25gm) Vial IV Q1H PRN Hypoglycemia Gabapentin 300 mg 05/17/19 14:40 05/19/19 05:10 Gabapentin PO 300 mg Q8HR PAOLO Administration Hydrophilic Ointment 1 applic 03/16/19 15:50 04/19/19 18:24 Vaseline Lip Therapy TP 1 applic Q2HR PRN Administration Dry Lips Sodium Chloride 500 mls @ 50 mls/hr 05/10/19 08:00 05/11/19 06:55 Nacl 0.9% 500 Ml IV 50 mls/hr DIRECT PAOLO Administration Melatonin 5 mg 04/26/19 21:00 05/15/19 21:09 Melatonin PO 5 mg QHS PRN Administration Sleep Metoprolol Succinate 50 mg 05/10/19 10:00 05/19/19 09:49 Metoprolol Xl PO 50 mg QDAY PAOLO Administration Multi-Ingred Cream/Lotion/Oil/Oint 1 applic 03/16/19 15:50 03/19/19 20:10 Artificial Tears Ophth Oint OU 1 applic Q4HR PRN Administration Dry Eye(s) Pantoprazole Sodium 40 mg 05/07/19 22:00 05/19/19 09:49 Protonix PO 40 mg BID PAOLO Administration Simple Syrup 15 ml 04/20/19 13:17 Simple Syrup FEEDTUBE PRN PRN Hypoglycemia Simple Syrup 30 ml 04/20/19 13:29 05/01/19 17:57 Simple Syrup FEEDTUBE 30 ml PRN PRN Administration Hypoglycemia Sodium Bicarbonate 325 mg 04/20/19 13:17 04/27/19 11:03 Sodium Bicarbonate FEEDTUBE 325 mg PRN PRN Administration For Clogged Feeding Tube Nutrition/Malnutrition Assess - Dietary Evaluation Nutrition/Malnutrition Findings: Nutrition Notes Start: 03/17/19 14:22 Freq: Status: Active Protocol: Document 05/18/19 11:01 AIYANA (Rec: 05/18/19 11:46 AIYANA [id number]) Co-Sign 05/18/19 11:01 LP Nutrition Notes Initial or Follow up Reassessment Current Diagnosis Sepsis Other Pertinent Diagnosis GIB, afib Current Diet Regular + Ensure Clear 2 times daily Labs/Tests Reviewed Pertinent Medications Reviewed Height 6 ft Weight 89.2 kg [place] Body Weight (kg) 80.90 BMI 26.6 Weight change and time frame Re-weighed pt. Possible inaccurate bed scale. Subjective/Other Information F/U for ONS and PO intakes. Pt stated his appetite is good. Eating an average 50% of meals due to not liking some meals. Pt stated he hasn't been getting ensure clear because they are out of them, but when he gets them he drinks them. Percent of energy/protein needs met: 57%/48% Burn Absent Trauma Absent Minimum of two criteria No #1 Nutrition Diagnosis Inadequate oral intake As Evidenced by Signs and Symptoms Pt meeting 57%/48% of energy and protein needs. Diagnosis Progress(for reassessment Worsened documentation) Is patient on ventilator? No Is Patient Ambulatory and/or Out of Bed Yes [facility] [ 2359.500 [id number]] Kcal/Kg value to use for calculation 23 Approximate Energy Requirements Using 2051 kcal/Kg Calculation Used for Recommendations Kcal/kg Additional Notes Protein Needs: 91-114g (0.8-1g /kg 114kg adjBW) Fluid needs 1ml/kcal Calorie recommendation adjusted to meet needs for previously recorded wt. Nutrition Intervention Change Diet Order: Continue current Add Supplement/Snack (indicate name/kcal Ensure Clear BID /protein ) Provides kCal: 480 Provides Protein (gm) 16 Goal #1 Continue to meet at least 75% of kcal/PRO needs via PO and ONS intakes Anticipated Discharge Needs: Regular diet Follow-Up By: 05/23/19 Additional Comments Follow for PO and ONS intakes
--- NOTE | 2019-05-19 14:13 | Progress Note ---
Assessment and Plan Patient awake and oriented. patient counselled on using O2 as needed for shortness of breath.. O2 saturation is 98% on room air. No acute respiratory distress. Patient afebrile and has leukocytosis. Patients heart rate and blood pressure running good. Patients calcium to day 8.8, in the normal range. Patient has debridement of wound on left hand. Patient has venous doppler studies of legs, reported DVT.Patient has IVC filter placement ... . - Patient Problems (1) Acute respiratory failure Current Visit: Yes Status: Resolved Qualifiers: Respiratory failure complication: hypoxia Qualified Code(s): J96.01 - Acute respiratory failure with hypoxia Plan to address problem: O2 2L as needed for shortness of breath or desaturation. Albuterol/atrovent aerosol treatments q 6 hours. Continue Prevacid. Patient has IVC filter placement for DVT.. (2) Altered mental status Current Visit: Yes Status: Acute Qualifiers: Altered mental status type: unspecified Qualified Code(s): R41.82 - Altered mental status, unspecified Plan to address problem: Management as per primary care and neurology. (3) Atrial fibrillation with RVR Current Visit: Yes Status: Acute Plan to address problem: Management as per cardiology. (4) Cardiopulmonary arrest Current Visit: Yes Status: Acute Plan to address problem: Patient resuscitated. Presently resting on room air. O2 saturation 98%.. (5) Acute renal failure Current Visit: Yes Status: Acute Qualifiers: Acute renal failure type: with acute tubular necrosis Qualified Code(s): N17.0 - Acute kidney failure with tubular necrosis Plan to address problem: Management as per nephrology. (6) Aspiration pneumonia Current Visit: Yes Status: Acute Qualifiers: Aspiration pneumonia type: unspecified Plan to address problem: Patient treated with Azactam and zyvox. (7) GI bleed Current Visit: Yes Status: Acute Plan to address problem: Management as per gastroenterology. (8) DVT (deep venous thrombosis) Current Visit: Yes Status: Acute Plan to address problem: Venous doppler studies of legs reported DVT. Patient has IVC filter placement for DVT.. Subjective Date of service: 05/19/19 Principal diagnosis: Septic Shock; Ac. hypoxemic resp failure; Renzo. PNA; Rhabdomyolysis; RUBEN Interval history: Patient awake and oriented. patient counselled on using O2 as needed for shortness of breath.. O2 saturation is 98% on room air. No acute respiratory distress. Patient afebrile and has leukocytosis. Patients heart rate and blood pressure running good. Patients calcium to day 8.8, in the normal range. Patient has debridement of wound on left hand. Patient has venous doppler studies of legs, reported DVT.Patient has IVC filter placement . Objective Vital Signs - 12hr 05/19/19 05/19/19 05/19/19 05:08 05:09 09:43 Temperature 97.2 F L Pulse Rate 78 Respiratory 18 18 Rate Blood Pressure 120/78 126/82 O2 Sat by Pulse 100 Oximetry 05/19/19 05/19/19 09:49 11:30 Temperature 98.0 F Pulse Rate 80 78 Respiratory 18 Rate Blood Pressure 126/82 114/80 O2 Sat by Pulse 99 Oximetry Constitutional: no acute distress, alert Eyes: non-icteric ENT: oropharynx moist, other Neck: supple, no lymphadenopathy, no JVD, other (large neck circumference) Effort: normal Ascultation: Bilateral: diminished breath sounds Percussion: Bilateral: not dull Cardiovascular: regular rate and rhythm, other ( S1,S2) Gastrointestinal: normoactive bowel sounds, soft, non-tender, non-distended, other (obese) Integumentary: normal Extremities: no cyanosis, pink and warm, pulses normal, no ischemia or petechiae Neurologic: normal mental status, non-focal exam (grossly), pupils equal and round, CN II-XII normal, other (very weak, bilateral foot drop) Psychiatric: mood appropriate, affect normal CBC and BMP: 05/20/19 06:34 05/19/19 06:47 ABG, PT/INR, D-dimer: ABG POC ABG pH 7.401 (7.35-7.45) 04/07/19 12:57 ABG pH 7.388 pH Units (7.350-7.450) 04/06/19 05:20 POC ABG pCO2 41.5 (35-45) 04/07/19 12:57 ABG pCO2 38.5 mm Hg 04/06/19 05:20 POC ABG pO2 107 (80-105) H 04/07/19 12:57 ABG pO2 104.0 mm Hg (80.0-90.0) H 04/06/19 05:20 POC ABG HCO3 25.7 (22-26 mml/L) 04/07/19 12:57 POC ABG Total CO2 27 (23-27mmol/L) 04/07/19 12:57 POC ABG O2 Sat 98 04/07/19 12:57 ABG O2 Saturation 97.8 % (95.0-99.0) 04/06/19 05:20 PT/INR, D-dimer PT 14.8 Sec. (12.2-14.9) 05/10/19 06:42 INR 1.17 (0.87-1.13) H 05/10/19 06:42 D-Dimer 4845.98 ng/mlDDU (0-234) H 03/28/19 12:00 Abnormal lab findings: Abnormal Labs 03/16/19 03/16/19 03/16/19 15:32 16:03 16:05 WBC 27.0 H RBC 5.55 H Hgb 15.7 H Hct 47.1 H MCV MCH MCHC RDW Plt Count 75 L Lymph % (Auto) [place] % (Auto) Eos % (Auto) Lymph # [place] # Eos # Seg Neutrophils % Seg Neuts % (Manual) 85.0 H Lymphocytes % (Manual) 2.0 L Monocytes % (Manual) Eosinophils % (Manual) Nucleated RBC % Seg Neutrophils # Seg Neutrophils # Man 23.0 H Lymphocytes # (Manual) 0.5 L Monocytes # (Manual) Eosinophils # (Manual) PT INR D-Dimer Heparin Anti-Xa Level POC ABG pH ABG pH POC ABG pCO2 POC ABG pO2 ABG pO2 ABG HCO3 ABG O2 Saturation ABG Base Excess ABG Hemoglobin Oxyhemoglobin Sodium 127 L Potassium Chloride 87.8 L Carbon Dioxide 17 L BUN 49 H Creatinine 5.8 H Glucose 150 H POC Glucose 118 H Lactic Acid Calcium 6.6 L Ionized Calcium Phosphorus Magnesium 1.10 L Iron TIBC Ferritin Total Bilirubin Direct Bilirubin AST ALT Alkaline Phosphatase Total Creatine Kinase 40068 H CK-MB (CK-2) Troponin T C-Reactive Protein Serum Total Protein Total Protein Albumin Tsheg-4-Hfypqtkwt Ipmgx-6-Xazrwnyfr PEP Interpretation Triglycerides LDL Cholesterol Direct HDL Cholesterol Free T4 PTH Intact Urine WBC (Auto) Urine Creatinine Salicylates Acetaminophen Crossmatch 03/16/19 03/16/19 03/16/19 16:59 17:05 17:05 WBC RBC Hgb Hct MCV MCH MCHC RDW Plt Count Lymph % (Auto) [place] % (Auto) Eos % (Auto) Lymph # [place] # Eos # Seg Neutrophils % Seg Neuts % (Manual) Lymphocytes % (Manual) Monocytes % (Manual) Eosinophils % (Manual) Nucleated RBC % Seg Neutrophils # Seg Neutrophils # Man Lymphocytes # (Manual) Monocytes # (Manual) Eosinophils # (Manual) PT INR D-Dimer Heparin Anti-Xa Level POC ABG pH 7.297 L ABG pH POC ABG pCO2 33.0 L POC ABG pO2 ABG pO2 ABG HCO3 ABG O2 Saturation ABG Base Excess ABG Hemoglobin Oxyhemoglobin Sodium Potassium Chloride Carbon Dioxide BUN Creatinine Glucose POC Glucose Lactic Acid Calcium Ionized Calcium Phosphorus Magnesium Iron TIBC Ferritin Total Bilirubin Direct Bilirubin AST ALT Alkaline Phosphatase Total Creatine Kinase 89342 H CK-MB (CK-2) 83.1 H Troponin T C-Reactive Protein Serum Total Protein Total Protein Albumin Vdciy-2-Ngfmqxdsf Hjqzj-0-Prmtihyeg PEP Interpretation Triglycerides LDL Cholesterol Direct HDL Cholesterol Free T4 0.72 L PTH Intact Urine WBC (Auto) Urine Creatinine Salicylates Acetaminophen Crossmatch 03/16/19 03/16/19 03/16/19 17:05 17:05 17:05 WBC RBC Hgb Hct MCV MCH MCHC RDW Plt Count Lymph % (Auto) [place] % (Auto) Eos % (Auto) Lymph # [place] # Eos # Seg Neutrophils % Seg Neuts % (Manual) Lymphocytes % (Manual) Monocytes % (Manual) Eosinophils % (Manual) Nucleated RBC % Seg Neutrophils # Seg Neutrophils # Man Lymphocytes # (Manual) Monocytes # (Manual) Eosinophils # (Manual) PT INR D-Dimer Heparin Anti-Xa Level POC ABG pH ABG pH POC ABG pCO2 POC ABG pO2 ABG pO2 ABG HCO3 ABG O2 Saturation ABG Base Excess ABG Hemoglobin Oxyhemoglobin Sodium Potassium Chloride Carbon Dioxide BUN Creatinine Glucose POC Glucose Lactic Acid 5.10 H* Calcium Ionized Calcium Phosphorus Magnesium Iron TIBC Ferritin Total Bilirubin Direct Bilirubin AST ALT Alkaline Phosphatase Total Creatine Kinase CK-MB (CK-2) Troponin T C-Reactive Protein Serum Total Protein Total Protein Albumin Xyvtm-1-Rvriuzrtk Uqwnd-5-Nwsotdeok PEP Interpretation Triglycerides LDL Cholesterol Direct HDL Cholesterol Free T4 PTH Intact Urine WBC (Auto) Urine Creatinine Salicylates < 0.3 L Acetaminophen < 5.0 L Crossmatch 03/16/19 03/16/19 03/16/19 17:05 17:05 20:35 WBC RBC Hgb Hct MCV MCH MCHC RDW Plt Count Lymph % (Auto) [place] % (Auto) Eos % (Auto) Lymph # [place] # Eos # Seg Neutrophils % Seg Neuts % (Manual) Lymphocytes % (Manual) Monocytes % (Manual) Eosinophils % (Manual) Nucleated RBC % Seg Neutrophils # Seg Neutrophils # Man Lymphocytes # (Manual) Monocytes # (Manual) Eosinophils # (Manual) PT 15.9 H INR 1.30 H D-Dimer Heparin Anti-Xa Level POC ABG pH ABG pH POC ABG pCO2 POC ABG pO2 ABG pO2 ABG HCO3 ABG O2 Saturation ABG Base Excess ABG Hemoglobin Oxyhemoglobin Sodium Potassium Chloride Carbon Dioxide BUN Creatinine Glucose POC Glucose Lactic Acid 3.30 H* Calcium Ionized Calcium Phosphorus Magnesium Iron TIBC Ferritin Total Bilirubin 6.20 H Direct Bilirubin 5.9 H AST 800 H ALT 120 H Alkaline Phosphatase Total Creatine Kinase CK-MB (CK-2) Troponin T C-Reactive Protein Serum Total Protein Total Protein 4.4 L Albumin 2.4 L Tjvpo-9-Tgzjamice Rxzvi-7-Jkfxqyzww PEP Interpretation Triglycerides LDL Cholesterol Direct HDL Cholesterol Free T4 PTH Intact Urine WBC (Auto) Urine Creatinine Salicylates Acetaminophen Crossmatch 03/16/19 03/16/19 03/16/19 21:45 22:32 Unknown WBC RBC Hgb Hct MCV MCH MCHC RDW Plt Count Lymph % (Auto) [place] % (Auto) Eos % (Auto) Lymph # [place] # Eos # Seg Neutrophils % Seg Neuts % (Manual) Lymphocytes % (Manual) Monocytes % (Manual) Eosinophils % (Manual) Nucleated RBC % Seg Neutrophils # Seg Neutrophils # Man Lymphocytes # (Manual) Monocytes # (Manual) Eosinophils # (Manual) PT INR D-Dimer Heparin Anti-Xa Level POC ABG pH ABG pH POC ABG pCO2 POC ABG pO2 ABG pO2 ABG HCO3 ABG O2 Saturation ABG Base Excess ABG Hemoglobin Oxyhemoglobin Sodium Potassium Chloride Carbon Dioxide BUN Creatinine Glucose POC Glucose Lactic Acid 3.30 H* 3.00 H* Calcium Ionized Calcium Phosphorus Magnesium Iron TIBC Ferritin Total Bilirubin Direct Bilirubin AST ALT Alkaline Phosphatase Total Creatine Kinase CK-MB (CK-2) Troponin T 0.047 H D C-Reactive Protein Serum Total Protein Total Protein Albumin Xmdgt-7-Qcvafxckv Qippe-1-Qlzoezqci PEP Interpretation Triglycerides 395 H LDL Cholesterol Direct 10 L HDL Cholesterol 7 L Free T4 PTH Intact Urine WBC (Auto) Urine Creatinine Salicylates Acetaminophen Crossmatch 03/17/19 03/17/19 03/17/19 03:45 03:45 03:45 WBC RBC Hgb Hct MCV MCH MCHC RDW Plt Count Lymph % (Auto) [place] % (Auto) Eos % (Auto) Lymph # [place] # Eos # Seg Neutrophils % Seg Neuts % (Manual) Lymphocytes % (Manual) Monocytes % (Manual) Eosinophils % (Manual) Nucleated RBC % Seg Neutrophils # Seg Neutrophils # Man Lymphocytes # (Manual) Monocytes # (Manual) Eosinophils # (Manual) PT INR D-Dimer Heparin Anti-Xa Level POC ABG pH ABG pH POC ABG pCO2 POC ABG pO2 ABG pO2 ABG HCO3 ABG O2 Saturation ABG Base Excess ABG Hemoglobin Oxyhemoglobin Sodium 131 L Potassium Chloride 88.9 L Carbon Dioxide BUN 53 H Creatinine 7.1 H Glucose POC Glucose Lactic Acid 4.10 H* Calcium 5.4 L* D Ionized Calcium Phosphorus 7.30 H Magnesium 1.60 L Iron TIBC Ferritin Total Bilirubin 5.90 H Direct Bilirubin AST 801 H ALT 109 H Alkaline Phosphatase Total Creatine Kinase 99695 H 49115 H CK-MB (CK-2) 41.5 H Troponin T 0.054 H C-Reactive Protein Serum Total Protein Total Protein 4.5 L Albumin 2.0 L Brtsl-7-Akxbjezmp Qajmg-1-Leujzamui PEP Interpretation Triglycerides LDL Cholesterol Direct HDL Cholesterol Free T4 PTH Intact Urine WBC (Auto) Urine Creatinine Salicylates Acetaminophen Crossmatch 03/17/19 03/17/19 03/17/19 05:47 07:16 07:16 WBC RBC Hgb Hct MCV MCH MCHC RDW Plt Count Lymph % (Auto) [place] % (Auto) Eos % (Auto) Lymph # [place] # Eos # Seg Neutrophils % Seg Neuts % (Manual) Lymphocytes % (Manual) Monocytes % (Manual) Eosinophils % (Manual) Nucleated RBC % Seg Neutrophils # Seg Neutrophils # Man Lymphocytes # (Manual) Monocytes # (Manual) Eosinophils # (Manual) PT INR D-Dimer Heparin Anti-Xa Level POC ABG pH 7.193 L ABG pH POC ABG pCO2 45.2 H POC ABG pO2 65 L ABG pO2 ABG HCO3 ABG O2 Saturation ABG Base Excess ABG Hemoglobin Oxyhemoglobin Sodium Potassium Chloride Carbon Dioxide BUN Creatinine Glucose POC Glucose Lactic Acid 5.50 H* Calcium Ionized Calcium Phosphorus Magnesium Iron TIBC Ferritin Total Bilirubin Direct Bilirubin AST ALT Alkaline Phosphatase Total Creatine Kinase 00542 H CK-MB (CK-2) 54.3 H Troponin T 0.058 H C-Reactive Protein Serum Total Protein Total Protein Albumin Osgwu-2-Lbdytnvsh Jjrtp-7-Mglxmhrkh PEP Interpretation Triglycerides LDL Cholesterol Direct HDL Cholesterol Free T4 PTH Intact Urine WBC (Auto) Urine Creatinine Salicylates Acetaminophen Crossmatch 03/17/19 03/17/19 03/17/19 11:52 12:51 13:01 WBC RBC Hgb Hct MCV MCH MCHC RDW Plt Count Lymph % (Auto) [place] % (Auto) Eos % (Auto) Lymph # [place] # Eos # Seg Neutrophils % Seg Neuts % (Manual) Lymphocytes % (Manual) Monocytes % (Manual) Eosinophils % (Manual) Nucleated RBC % Seg Neutrophils # Seg Neutrophils # Man Lymphocytes # (Manual) Monocytes # (Manual) Eosinophils # (Manual) PT INR D-Dimer Heparin Anti-Xa Level POC ABG pH 7.154 L ABG pH POC ABG pCO2 34.3 L POC ABG pO2 73 L ABG pO2 ABG HCO3 ABG O2 Saturation ABG Base Excess ABG Hemoglobin Oxyhemoglobin Sodium Potassium Chloride Carbon Dioxide BUN Creatinine Glucose POC Glucose 60 L Lactic Acid 8.20 H* Calcium Ionized Calcium Phosphorus Magnesium Iron TIBC Ferritin Total Bilirubin Direct Bilirubin AST ALT Alkaline Phosphatase Total Creatine Kinase CK-MB (CK-2) Troponin T C-Reactive Protein Serum Total Protein Total Protein Albumin Ovuwl-1-Vptfyxdhk Lwsdy-9-Jqbrqapji PEP Interpretation Triglycerides LDL Cholesterol Direct HDL Cholesterol Free T4 PTH Intact Urine WBC (Auto) Urine Creatinine Salicylates Acetaminophen Crossmatch 03/17/19 03/17/19 03/17/19 14:37 14:37 14:37 WBC 29.3 H RBC Hgb Hct MCV MCH MCHC RDW 15.8 H Plt Count 45 L Lymph % (Auto) [place] % (Auto) Eos % (Auto) Lymph # [place] # Eos # Seg Neutrophils % Seg Neuts % (Manual) 81.0 H Lymphocytes % (Manual) 1.0 L Monocytes % (Manual) 15.0 H Eosinophils % (Manual) Nucleated RBC % Seg Neutrophils # Seg Neutrophils # Man 23.7 H Lymphocytes # (Manual) 0.3 L Monocytes # (Manual) 4.4 H Eosinophils # (Manual) PT INR D-Dimer Heparin Anti-Xa Level POC ABG pH ABG pH POC ABG pCO2 POC ABG pO2 ABG pO2 ABG HCO3 ABG O2 Saturation ABG Base Excess ABG Hemoglobin Oxyhemoglobin Sodium Potassium Chloride Carbon Dioxide BUN Creatinine Glucose POC Glucose Lactic Acid 4.90 H* Calcium Ionized Calcium Phosphorus Magnesium Iron TIBC Ferritin Total Bilirubin Direct Bilirubin AST ALT Alkaline Phosphatase Total Creatine Kinase CK-MB (CK-2) Troponin T C-Reactive Protein 24.90 H Serum Total Protein Total Protein Albumin Proag-1-Hbhqzbvgk Pmkig-9-Azknyoaix PEP Interpretation Triglycerides LDL Cholesterol Direct HDL Cholesterol Free T4 PTH Intact Urine WBC (Auto) Urine Creatinine Salicylates Acetaminophen Crossmatch 03/17/19 03/17/19 03/17/19 16:05 16:05 17:02 WBC RBC Hgb Hct MCV MCH MCHC RDW Plt Count Lymph % (Auto) [place] % (Auto) Eos % (Auto) Lymph # [place] # Eos # Seg Neutrophils % Seg Neuts % (Manual) Lymphocytes % (Manual) Monocytes % (Manual) Eosinophils % (Manual) Nucleated RBC % Seg Neutrophils # Seg Neutrophils # Man Lymphocytes # (Manual) Monocytes # (Manual) Eosinophils # (Manual) PT INR D-Dimer Heparin Anti-Xa Level POC ABG pH 7.183 L ABG pH POC ABG pCO2 POC ABG pO2 65 L ABG pO2 ABG HCO3 ABG O2 Saturation ABG Base Excess ABG Hemoglobin Oxyhemoglobin Sodium Potassium Chloride Carbon Dioxide BUN Creatinine Glucose POC Glucose Lactic Acid Calcium Ionized Calcium Phosphorus Magnesium Iron TIBC Ferritin Total Bilirubin Direct Bilirubin AST ALT Alkaline Phosphatase Total Creatine Kinase CK-MB (CK-2) Troponin T C-Reactive Protein Serum Total Protein Total Protein Albumin Oegjx-7-Nhzocgncy Gjkot-9-Mxvwzhnwc PEP Interpretation Triglycerides LDL Cholesterol Direct HDL Cholesterol Free T4 PTH Intact Urine WBC (Auto) 30.0 H Urine Creatinine 106.6 H Salicylates Acetaminophen Crossmatch 03/18/19 03/18/19 03/18/19 05:12 05:16 05:53 WBC RBC Hgb Hct MCV MCH MCHC RDW Plt Count Lymph % (Auto) [place] % (Auto) Eos % (Auto) Lymph # [place] # Eos # Seg Neutrophils % Seg Neuts % (Manual) Lymphocytes % (Manual) Monocytes % (Manual) Eosinophils % (Manual) Nucleated RBC % Seg Neutrophils # Seg Neutrophils # Man Lymphocytes # (Manual) Monocytes # (Manual) Eosinophils # (Manual) PT INR D-Dimer Heparin Anti-Xa Level POC ABG pH 7.257 L ABG pH POC ABG pCO2 31.6 L POC ABG pO2 69 L ABG pO2 ABG HCO3 ABG O2 Saturation ABG Base Excess ABG Hemoglobin Oxyhemoglobin Sodium Potassium Chloride Carbon Dioxide BUN Creatinine Glucose POC Glucose 141 H Lactic Acid 5.00 H* Calcium Ionized Calcium Phosphorus Magnesium Iron TIBC Ferritin Total Bilirubin Direct Bilirubin AST ALT Alkaline Phosphatase Total Creatine Kinase CK-MB (CK-2) Troponin T C-Reactive Protein Serum Total Protein Total Protein Albumin Vzskb-8-Wbpqbgmwq Umleq-1-Zyuyckntu PEP Interpretation Triglycerides LDL Cholesterol Direct HDL Cholesterol Free T4 PTH Intact Urine WBC (Auto) Urine Creatinine Salicylates Acetaminophen Crossmatch 03/18/19 03/18/19 03/18/19 06:57 08:40 08:40 WBC 31.7 H RBC Hgb Hct MCV MCH MCHC RDW 15.5 H Plt Count 35 L Lymph % (Auto) [place] % (Auto) Eos % (Auto) Lymph # [place] # Eos # Seg Neutrophils % Seg Neuts % (Manual) Lymphocytes % (Manual) Monocytes % (Manual) Eosinophils % (Manual) Nucleated RBC % Seg Neutrophils # Seg Neutrophils # Man Lymphocytes # (Manual) Monocytes # (Manual) Eosinophils # (Manual) PT INR D-Dimer Heparin Anti-Xa Level POC ABG pH ABG pH POC ABG pCO2 POC ABG pO2 ABG pO2 ABG HCO3 ABG O2 Saturation ABG Base Excess ABG Hemoglobin Oxyhemoglobin Sodium 132 L Potassium 5.5 H D Chloride 88.5 L Carbon Dioxide 18 L BUN 71 H Creatinine 8.1 H Glucose 205 H POC Glucose Lactic Acid 5.00 H* Calcium 4.1 L* D Ionized Calcium Phosphorus Magnesium 2.40 H Iron TIBC Ferritin Total Bilirubin 7.50 H Direct Bilirubin AST 1088 H ALT 159 H Alkaline Phosphatase 190 H Total Creatine Kinase 586241 H CK-MB (CK-2) Troponin T C-Reactive Protein Serum Total Protein Total Protein 4.7 L Albumin 1.8 L Kpptl-2-Dtbjvfssu Prvfh-3-Utqyhgmgf PEP Interpretation Triglycerides LDL Cholesterol Direct HDL Cholesterol Free T4 PTH Intact Urine WBC (Auto) Urine Creatinine Salicylates Acetaminophen Crossmatch 03/18/19 03/18/19 03/18/19 12:33 12:50 13:19 WBC RBC Hgb Hct MCV MCH MCHC RDW Plt Count Lymph % (Auto) [place] % (Auto) Eos % (Auto) Lymph # [place] # Eos # Seg Neutrophils % Seg Neuts % (Manual) Lymphocytes % (Manual) Monocytes % (Manual) Eosinophils % (Manual) Nucleated RBC % Seg Neutrophils # Seg Neutrophils # Man Lymphocytes # (Manual) Monocytes # (Manual) Eosinophils # (Manual) PT INR D-Dimer Heparin Anti-Xa Level POC ABG pH 7.282 L ABG pH POC ABG pCO2 POC ABG pO2 67 L ABG pO2 ABG HCO3 ABG O2 Saturation ABG Base Excess ABG Hemoglobin Oxyhemoglobin Sodium Potassium Chloride Carbon Dioxide BUN Creatinine Glucose POC Glucose 129 H Lactic Acid 3.30 H* Calcium Ionized Calcium Phosphorus Magnesium Iron TIBC Ferritin Total Bilirubin Direct Bilirubin AST ALT Alkaline Phosphatase Total Creatine Kinase CK-MB (CK-2) Troponin T C-Reactive Protein Serum Total Protein Total Protein Albumin Chpba-9-Kqjlpktmj Aljyv-4-Kvkbxgubz PEP Interpretation Triglycerides LDL Cholesterol Direct HDL Cholesterol Free T4 PTH Intact Urine WBC (Auto) Urine Creatinine Salicylates Acetaminophen Crossmatch 03/18/19 03/18/19 03/18/19 13:19 16:50 18:11 WBC RBC Hgb Hct MCV MCH MCHC RDW Plt Count Lymph % (Auto) [place] % (Auto) Eos % (Auto) Lymph # [place] # Eos # Seg Neutrophils % Seg Neuts % (Manual) Lymphocytes % (Manual) Monocytes % (Manual) Eosinophils % (Manual) Nucleated RBC % Seg Neutrophils # Seg Neutrophils # Man Lymphocytes # (Manual) Monocytes # (Manual) Eosinophils # (Manual) PT INR D-Dimer Heparin Anti-Xa Level POC ABG pH ABG pH POC ABG pCO2 POC ABG pO2 59 L ABG pO2 ABG HCO3 ABG O2 Saturation ABG Base Excess ABG Hemoglobin Oxyhemoglobin Sodium Potassium Chloride Carbon Dioxide BUN Creatinine Glucose POC Glucose 151 H Lactic Acid Calcium 4.2 L* Ionized Calcium Phosphorus Magnesium Iron TIBC Ferritin Total Bilirubin Direct Bilirubin AST ALT Alkaline Phosphatase Total Creatine Kinase 510745 H CK-MB (CK-2) Troponin T C-Reactive Protein Serum Total Protein Total Protein Albumin Vxsqh-8-Faomukbsx Bqjky-6-Sjxmnvshk PEP Interpretation Triglycerides LDL Cholesterol Direct HDL Cholesterol Free T4 PTH Intact Urine WBC (Auto) Urine Creatinine Salicylates Acetaminophen Crossmatch 03/18/19 03/18/19 03/19/19 18:20 23:39 01:42 WBC RBC Hgb Hct MCV MCH MCHC RDW Plt Count Lymph % (Auto) [place] % (Auto) Eos % (Auto) Lymph # [place] # Eos # Seg Neutrophils % Seg Neuts % (Manual) Lymphocytes % (Manual) Monocytes % (Manual) Eosinophils % (Manual) Nucleated RBC % Seg Neutrophils # Seg Neutrophils # Man Lymphocytes # (Manual) Monocytes # (Manual) Eosinophils # (Manual) PT INR D-Dimer Heparin Anti-Xa Level POC ABG pH 7.345 L ABG pH 7.285 L POC ABG pCO2 POC ABG pO2 59 L ABG pO2 44.0 L ABG HCO3 ABG O2 Saturation 70.9 L ABG Base Excess -5.7 L ABG Hemoglobin 11.9 L Oxyhemoglobin 69.6 L Sodium Potassium Chloride Carbon Dioxide BUN Creatinine Glucose POC Glucose 152 H Lactic Acid Calcium Ionized Calcium Phosphorus Magnesium Iron TIBC Ferritin Total Bilirubin Direct Bilirubin AST ALT Alkaline Phosphatase Total Creatine Kinase CK-MB (CK-2) Troponin T C-Reactive Protein Serum Total Protein Total Protein Albumin Gatkk-8-Tqmgzvngg Amsqk-2-Jkzaddohw PEP Interpretation Triglycerides LDL Cholesterol Direct HDL Cholesterol Free T4 PTH Intact Urine WBC (Auto) Urine Creatinine Salicylates Acetaminophen Crossmatch 03/19/19 03/19/19 03/19/19 04:00 04:00 05:35 WBC 36.5 H RBC Hgb Hct MCV MCH MCHC RDW 15.8 H Plt Count 35 L Lymph % (Auto) [place] % (Auto) Eos % (Auto) Lymph # [place] # Eos # Seg Neutrophils % Seg Neuts % (Manual) Lymphocytes % (Manual) Monocytes % (Manual) Eosinophils % (Manual) Nucleated RBC % Seg Neutrophils # Seg Neutrophils # Man Lymphocytes # (Manual) Monocytes # (Manual) Eosinophils # (Manual) PT INR D-Dimer Heparin Anti-Xa Level POC ABG pH ABG pH 7.265 L POC ABG pCO2 POC ABG pO2 ABG pO2 35.4 L* ABG HCO3 ABG O2 Saturation 54.4 L ABG Base Excess -6.7 L ABG Hemoglobin 12.9 L Oxyhemoglobin 53.4 L Sodium 132 L Potassium 5.7 H Chloride 89.8 L Carbon Dioxide 19 L BUN 62 H Creatinine 6.4 H Glucose 151 H POC Glucose Lactic Acid Calcium 5.2 L* D Ionized Calcium Phosphorus Magnesium Iron TIBC Ferritin Total Bilirubin 7.80 H Direct Bilirubin AST 682 H ALT 130 H Alkaline Phosphatase 167 H Total Creatine Kinase CK-MB (CK-2) Troponin T C-Reactive Protein Serum Total Protein Total Protein 4.8 L Albumin 2.3 L Bgqmu-4-Aogyoccqy Yblcr-5-Iqbggxphn PEP Interpretation Triglycerides LDL Cholesterol Direct HDL Cholesterol Free T4 PTH Intact Urine WBC (Auto) Urine Creatinine Salicylates Acetaminophen Crossmatch 03/19/19 03/19/19 03/19/19 05:49 09:16 09:50 WBC RBC Hgb Hct MCV MCH MCHC RDW Plt Count Lymph % (Auto) [place] % (Auto) Eos % (Auto) Lymph # [place] # Eos # Seg Neutrophils % Seg Neuts % (Manual) Lymphocytes % (Manual) Monocytes % (Manual) Eosinophils % (Manual) Nucleated RBC % Seg Neutrophils # Seg Neutrophils # Man Lymphocytes # (Manual) Monocytes # (Manual) Eosinophils # (Manual) PT INR D-Dimer Heparin Anti-Xa Level POC ABG pH 7.222 L ABG pH POC ABG pCO2 56.6 H POC ABG pO2 ABG pO2 ABG HCO3 ABG O2 Saturation ABG Base Excess ABG Hemoglobin Oxyhemoglobin Sodium Potassium Chloride Carbon Dioxide BUN Creatinine Glucose POC Glucose 154 H Lactic Acid 2.70 H* Calcium Ionized Calcium Phosphorus Magnesium Iron TIBC Ferritin Total Bilirubin Direct Bilirubin AST ALT Alkaline Phosphatase Total Creatine Kinase CK-MB (CK-2) Troponin T C-Reactive Protein Serum Total Protein Total Protein Albumin Xurle-6-Infkyuvzu Fssvh-9-Micutrgpt PEP Interpretation Triglycerides LDL Cholesterol Direct HDL Cholesterol Free T4 PTH Intact Urine WBC (Auto) Urine Creatinine Salicylates Acetaminophen Crossmatch 03/19/19 03/19/19 03/19/19 09:50 11:28 17:58 WBC RBC Hgb Hct MCV MCH MCHC RDW Plt Count Lymph % (Auto) [place] % (Auto) Eos % (Auto) Lymph # [place] # Eos # Seg Neutrophils % Seg Neuts % (Manual) Lymphocytes % (Manual) Monocytes % (Manual) Eosinophils % (Manual) Nucleated RBC % Seg Neutrophils # Seg Neutrophils # Man Lymphocytes # (Manual) Monocytes # (Manual) Eosinophils # (Manual) PT INR D-Dimer Heparin Anti-Xa Level POC ABG pH 7.250 L ABG pH POC ABG pCO2 52.6 H POC ABG pO2 ABG pO2 ABG HCO3 ABG O2 Saturation ABG Base Excess ABG Hemoglobin Oxyhemoglobin Sodium Potassium Chloride Carbon Dioxide BUN Creatinine Glucose POC Glucose 160 H Lactic Acid Calcium Ionized Calcium Phosphorus Magnesium Iron TIBC Ferritin Total Bilirubin Direct Bilirubin AST ALT Alkaline Phosphatase Total Creatine Kinase 36351 H CK-MB (CK-2) Troponin T C-Reactive Protein Serum Total Protein Total Protein Albumin Tzjbp-2-Yqrguzjgz Nmeze-8-Rwhwlfqqs PEP Interpretation Triglycerides LDL Cholesterol Direct HDL Cholesterol Free T4 PTH Intact Urine WBC (Auto) Urine Creatinine Salicylates Acetaminophen Crossmatch 03/19/19 03/19/19 03/20/19 19:48 21:03 02:16 WBC RBC Hgb Hct MCV MCH MCHC RDW Plt Count Lymph % (Auto) [place] % (Auto) Eos % (Auto) Lymph # [place] # Eos # Seg Neutrophils % Seg Neuts % (Manual) Lymphocytes % (Manual) Monocytes % (Manual) Eosinophils % (Manual) Nucleated RBC % Seg Neutrophils # Seg Neutrophils # Man Lymphocytes # (Manual) Monocytes # (Manual) Eosinophils # (Manual) PT INR D-Dimer Heparin Anti-Xa Level POC ABG pH 7.279 L ABG pH POC ABG pCO2 50.3 H POC ABG pO2 129 H ABG pO2 ABG HCO3 ABG O2 Saturation ABG Base Excess ABG Hemoglobin Oxyhemoglobin Sodium Potassium Chloride Carbon Dioxide BUN Creatinine Glucose POC Glucose 119 H 119 H Lactic Acid Calcium Ionized Calcium Phosphorus Magnesium Iron TIBC Ferritin Total Bilirubin Direct Bilirubin AST ALT Alkaline Phosphatase Total Creatine Kinase CK-MB (CK-2) Troponin T C-Reactive Protein Serum Total Protein Total Protein Albumin Wsxwx-7-Zzyulnjec Koqtc-5-Tvrryeyic PEP Interpretation Triglycerides LDL Cholesterol Direct HDL Cholesterol Free T4 PTH Intact Urine WBC (Auto) Urine Creatinine Salicylates Acetaminophen Crossmatch 03/20/19 03/20/19 03/20/19 04:23 05:05 09:30 WBC 36.3 H RBC Hgb Hct MCV MCH MCHC RDW 15.5 H Plt Count 29 L Lymph % (Auto) [place] % (Auto) Eos % (Auto) Lymph # [place] # Eos # Seg Neutrophils % Seg Neuts % (Manual) Lymphocytes % (Manual) Monocytes % (Manual) Eosinophils % (Manual) Nucleated RBC % Seg Neutrophils # Seg Neutrophils # Man Lymphocytes # (Manual) Monocytes # (Manual) Eosinophils # (Manual) PT INR D-Dimer Heparin Anti-Xa Level POC ABG pH ABG pH POC ABG pCO2 POC ABG pO2 280 H ABG pO2 ABG HCO3 ABG O2 Saturation ABG Base Excess ABG Hemoglobin Oxyhemoglobin Sodium Potassium Chloride Carbon Dioxide BUN Creatinine Glucose POC Glucose 115 H Lactic Acid Calcium Ionized Calcium Phosphorus Magnesium Iron TIBC Ferritin Total Bilirubin Direct Bilirubin AST ALT Alkaline Phosphatase Total Creatine Kinase CK-MB (CK-2) Troponin T C-Reactive Protein Serum Total Protein Total Protein Albumin Pzbgt-4-Jrlxjkrue Hyafi-4-Ulyfugsjl PEP Interpretation Triglycerides LDL Cholesterol Direct HDL Cholesterol Free T4 PTH Intact Urine WBC (Auto) Urine Creatinine Salicylates Acetaminophen Crossmatch 03/20/19 03/20/19 03/20/19 09:30 09:30 11:34 WBC RBC Hgb Hct MCV MCH MCHC RDW Plt Count Lymph % (Auto) [place] % (Auto) Eos % (Auto) Lymph # [place] # Eos # Seg Neutrophils % Seg Neuts % (Manual) Lymphocytes % (Manual) Monocytes % (Manual) Eosinophils % (Manual) Nucleated RBC % Seg Neutrophils # Seg Neutrophils # Man Lymphocytes # (Manual) Monocytes # (Manual) Eosinophils # (Manual) PT INR D-Dimer Heparin Anti-Xa Level POC ABG pH ABG pH POC ABG pCO2 POC ABG pO2 ABG pO2 ABG HCO3 ABG O2 Saturation ABG Base Excess ABG Hemoglobin Oxyhemoglobin Sodium 131 L Potassium Chloride 92.3 L Carbon Dioxide 20 L BUN 68 H Creatinine 6.1 H Glucose 164 H POC Glucose 141 H Lactic Acid Calcium 5.3 L* Ionized Calcium Phosphorus Magnesium Iron TIBC Ferritin Total Bilirubin 9.50 H Direct Bilirubin AST 381 H ALT 116 H Alkaline Phosphatase 255 H Total Creatine Kinase 42898 H CK-MB (CK-2) Troponin T C-Reactive Protein Serum Total Protein Total Protein 5.1 L Albumin 2.3 L Edpuw-9-Qbamftawb Gkxey-9-Lyoukkgbn PEP Interpretation Triglycerides LDL Cholesterol Direct HDL Cholesterol Free T4 PTH Intact Urine WBC (Auto) Urine Creatinine Salicylates Acetaminophen Crossmatch 03/20/19 03/20/19 03/20/19 14:41 14:45 18:50 WBC RBC Hgb Hct MCV MCH MCHC RDW Plt Count Lymph % (Auto) [place] % (Auto) Eos % (Auto) Lymph # [place] # Eos # Seg Neutrophils % Seg Neuts % (Manual) Lymphocytes % (Manual) Monocytes % (Manual) Eosinophils % (Manual) Nucleated RBC % Seg Neutrophils # Seg Neutrophils # Man Lymphocytes # (Manual) Monocytes # (Manual) Eosinophils # (Manual) PT INR D-Dimer Heparin Anti-Xa Level POC ABG pH ABG pH POC ABG pCO2 POC ABG pO2 ABG pO2 ABG HCO3 ABG O2 Saturation ABG Base Excess ABG Hemoglobin Oxyhemoglobin Sodium Potassium Chloride Carbon Dioxide BUN Creatinine Glucose POC Glucose 117 H Lactic Acid 2.90 H* Calcium Ionized Calcium Phosphorus Magnesium Iron TIBC Ferritin Total Bilirubin Direct Bilirubin AST ALT Alkaline Phosphatase Total Creatine Kinase CK-MB (CK-2) Troponin T C-Reactive Protein 13.30 H Serum Total Protein Total Protein Albumin Hzzux-5-Dhlnlxphj Vsrfu-1-Paclwmvlz PEP Interpretation Triglycerides LDL Cholesterol Direct HDL Cholesterol Free T4 PTH Intact Urine WBC (Auto) Urine Creatinine Salicylates Acetaminophen Crossmatch 03/20/19 03/21/19 03/21/19 21:55 04:26 04:26 WBC 37.8 H RBC Hgb Hct MCV MCH MCHC RDW 15.4 H Plt Count 36 L Lymph % (Auto) [place] % (Auto) Eos % (Auto) Lymph # [place] # Eos # Seg Neutrophils % Seg Neuts % (Manual) 93.0 H Lymphocytes % (Manual) 3.0 L Monocytes % (Manual) Eosinophils % (Manual) Nucleated RBC % 1.0 H Seg Neutrophils # 34.6 H Seg Neutrophils # Man 35.2 H Lymphocytes # (Manual) 1.1 L Monocytes # (Manual) Eosinophils # (Manual) PT INR D-Dimer Heparin Anti-Xa Level POC ABG pH ABG pH POC ABG pCO2 POC ABG pO2 ABG pO2 ABG HCO3 ABG O2 Saturation ABG Base Excess ABG Hemoglobin Oxyhemoglobin Sodium 131 L Potassium Chloride 90.7 L Carbon Dioxide 21 L BUN 69 H Creatinine 5.7 H Glucose 170 H POC Glucose 128 H Lactic Acid Calcium 6.1 L D Ionized Calcium Phosphorus Magnesium Iron TIBC Ferritin Total Bilirubin 9.50 H Direct Bilirubin AST 308 H ALT 124 H Alkaline Phosphatase 327 H Total Creatine Kinase 53626 H CK-MB (CK-2) Troponin T C-Reactive Protein Serum Total Protein Total Protein 5.7 L Albumin 2.6 L Tqhsg-4-Mvavmxuhe Shmhp-5-Iqjlxqzrt PEP Interpretation Triglycerides LDL Cholesterol Direct HDL Cholesterol Free T4 PTH Intact Urine WBC (Auto) Urine Creatinine Salicylates Acetaminophen Crossmatch 09/25/19 09/25/19 09/25/19 05:17 05:39 08:29 WBC RBC Hgb Hct MCV MCH MCHC RDW Plt Count Lymph % (Auto) [place] % (Auto) Eos % (Auto) Lymph # [place] # Eos # Seg Neutrophils % Seg Neuts % (Manual) Lymphocytes % (Manual) Monocytes % (Manual) Eosinophils % (Manual) Nucleated RBC % Seg Neutrophils # Seg Neutrophils # Man Lymphocytes # (Manual) Monocytes # (Manual) Eosinophils # (Manual) PT INR D-Dimer Heparin Anti-Xa Level POC ABG pH ABG pH POC ABG pCO2 POC ABG pO2 209 H ABG pO2 ABG HCO3 ABG O2 Saturation ABG Base Excess ABG Hemoglobin Oxyhemoglobin Sodium Potassium Chloride Carbon Dioxide BUN Creatinine Glucose POC Glucose 145 H Lactic Acid Calcium Ionized Calcium Phosphorus Magnesium Iron TIBC Ferritin Total Bilirubin Direct Bilirubin AST ALT Alkaline Phosphatase Total Creatine Kinase 89200 H CK-MB (CK-2) Troponin T C-Reactive Protein Serum Total Protein Total Protein Albumin Elojb-5-Ajubpjswb Dpcbe-2-Xyzvkytzo PEP Interpretation Triglycerides LDL Cholesterol Direct HDL Cholesterol Free T4 PTH Intact Urine WBC (Auto) Urine Creatinine Salicylates Acetaminophen Crossmatch 03/21/19 03/21/19 03/21/19 08:29 11:43 12:00 WBC RBC Hgb Hct MCV MCH MCHC RDW Plt Count Lymph % (Auto) [place] % (Auto) Eos % (Auto) Lymph # [place] # Eos # Seg Neutrophils % Seg Neuts % (Manual) Lymphocytes % (Manual) Monocytes % (Manual) Eosinophils % (Manual) Nucleated RBC % Seg Neutrophils # Seg Neutrophils # Man Lymphocytes # (Manual) Monocytes # (Manual) Eosinophils # (Manual) PT INR D-Dimer Heparin Anti-Xa Level POC ABG pH ABG pH POC ABG pCO2 POC ABG pO2 ABG pO2 ABG HCO3 ABG O2 Saturation ABG Base Excess ABG Hemoglobin Oxyhemoglobin Sodium Potassium Chloride Carbon Dioxide BUN Creatinine Glucose POC Glucose 123 H Lactic Acid 2.60 H* 2.20 H* Calcium Ionized Calcium Phosphorus Magnesium Iron TIBC Ferritin Total Bilirubin Direct Bilirubin AST ALT Alkaline Phosphatase Total Creatine Kinase CK-MB (CK-2) Troponin T C-Reactive Protein Serum Total Protein Total Protein Albumin Mrbbr-9-Jtzblgutk Jlvrv-0-Erttloedb PEP Interpretation Triglycerides LDL Cholesterol Direct HDL Cholesterol Free T4 PTH Intact Urine WBC (Auto) Urine Creatinine Salicylates Acetaminophen Crossmatch 03/21/19 03/21/19 03/21/19 14:11 18:28 19:32 WBC RBC Hgb Hct MCV MCH MCHC RDW Plt Count Lymph % (Auto) [place] % (Auto) Eos % (Auto) Lymph # [place] # Eos # Seg Neutrophils % Seg Neuts % (Manual) Lymphocytes % (Manual) Monocytes % (Manual) Eosinophils % (Manual) Nucleated RBC % Seg Neutrophils # Seg Neutrophils # Man Lymphocytes # (Manual) Monocytes # (Manual) Eosinophils # (Manual) PT INR D-Dimer Heparin Anti-Xa Level POC ABG pH 7.293 L ABG pH POC ABG pCO2 POC ABG pO2 ABG pO2 ABG HCO3 ABG O2 Saturation ABG Base Excess ABG Hemoglobin Oxyhemoglobin Sodium Potassium Chloride Carbon Dioxide BUN Creatinine Glucose POC Glucose 153 H Lactic Acid 2.10 H* Calcium Ionized Calcium Phosphorus Magnesium Iron TIBC Ferritin Total Bilirubin Direct Bilirubin AST ALT Alkaline Phosphatase Total Creatine Kinase CK-MB (CK-2) Troponin T C-Reactive Protein Serum Total Protein Total Protein Albumin Qxili-8-Vlppoxayb Wwcbg-7-Xrtjcsako PEP Interpretation Triglycerides LDL Cholesterol Direct HDL Cholesterol Free T4 PTH Intact Urine WBC (Auto) Urine Creatinine Salicylates Acetaminophen Crossmatch 03/21/19 03/22/19 03/22/19 23:38 05:08 05:51 WBC RBC Hgb Hct MCV MCH MCHC RDW Plt Count Lymph % (Auto) [place] % (Auto) Eos % (Auto) Lymph # [place] # Eos # Seg Neutrophils % Seg Neuts % (Manual) Lymphocytes % (Manual) Monocytes % (Manual) Eosinophils % (Manual) Nucleated RBC % Seg Neutrophils # Seg Neutrophils # Man Lymphocytes # (Manual) Monocytes # (Manual) Eosinophils # (Manual) PT INR D-Dimer Heparin Anti-Xa Level POC ABG pH 7.283 L ABG pH POC ABG pCO2 POC ABG pO2 53 L ABG pO2 ABG HCO3 ABG O2 Saturation ABG Base Excess ABG Hemoglobin Oxyhemoglobin Sodium Potassium Chloride Carbon Dioxide BUN Creatinine Glucose POC Glucose 149 H 131 H Lactic Acid Calcium Ionized Calcium Phosphorus Magnesium Iron TIBC Ferritin Total Bilirubin Direct Bilirubin AST ALT Alkaline Phosphatase Total Creatine Kinase CK-MB (CK-2) Troponin T C-Reactive Protein Serum Total Protein Total Protein Albumin Iuzmh-0-Kxyvguzcq Wbtdm-2-Bahrxyrsd PEP Interpretation Triglycerides LDL Cholesterol Direct HDL Cholesterol Free T4 PTH Intact Urine WBC (Auto) Urine Creatinine Salicylates Acetaminophen Crossmatch 09/03/22/19 03/22/19 08:00 08:00 18:19 WBC 36.7 H RBC Hgb 11.0 L Hct 33.5 L MCV MCH MCHC RDW 15.5 H Plt Count 43 L Lymph % (Auto) [place] % (Auto) Eos % (Auto) Lymph # [place] # Eos # Seg Neutrophils % Seg Neuts % (Manual) 87.0 H Lymphocytes % (Manual) 7.0 L Monocytes % (Manual) Eosinophils % (Manual) Nucleated RBC % Seg Neutrophils # Seg Neutrophils # Man 31.9 H Lymphocytes # (Manual) Monocytes # (Manual) Eosinophils # (Manual) PT INR D-Dimer Heparin Anti-Xa Level POC ABG pH ABG pH POC ABG pCO2 46.4 H POC ABG pO2 108 H ABG pO2 ABG HCO3 ABG O2 Saturation ABG Base Excess ABG Hemoglobin Oxyhemoglobin Sodium 132 L Potassium 5.6 H Chloride 89.6 L Carbon Dioxide 20 L BUN 101 H Creatinine 7.4 H Glucose 124 H POC Glucose Lactic Acid Calcium 5.2 L* Ionized Calcium Phosphorus Magnesium Iron TIBC Ferritin Total Bilirubin 2.80 H Direct Bilirubin AST 119 H ALT 86 H Alkaline Phosphatase 245 H Total Creatine Kinase CK-MB (CK-2) Troponin T C-Reactive Protein Serum Total Protein Total Protein 5.6 L Albumin 2.5 L Fqeyy-1-Kvkuvmzpx Tdtsk-5-Gawmbsvzc PEP Interpretation Triglycerides LDL Cholesterol Direct HDL Cholesterol Free T4 PTH Intact Urine WBC (Auto) Urine Creatinine Salicylates Acetaminophen Crossmatch 03/22/19 03/23/19 03/23/19 20:37 04:49 05:28 WBC 35.9 H RBC Hgb 10.8 L Hct 33.2 L MCV MCH MCHC RDW 15.5 H Plt Count 49 L Lymph % (Auto) [place] % (Auto) Eos % (Auto) Lymph # [place] # Eos # Seg Neutrophils % Seg Neuts % (Manual) 81.0 H Lymphocytes % (Manual) 3.5 L Monocytes % (Manual) Eosinophils % (Manual) Nucleated RBC % Seg Neutrophils # Seg Neutrophils # Man 29.1 H Lymphocytes # (Manual) Monocytes # (Manual) 1.4 H Eosinophils # (Manual) PT INR D-Dimer Heparin Anti-Xa Level POC ABG pH 7.296 L ABG pH POC ABG pCO2 46.2 H POC ABG pO2 ABG pO2 ABG HCO3 ABG O2 Saturation ABG Base Excess ABG Hemoglobin Oxyhemoglobin Sodium 129 L Potassium 5.2 H Chloride 91.1 L Carbon Dioxide BUN 91 H Creatinine 6.6 H Glucose 190 H POC Glucose Lactic Acid Calcium 5.3 L* Ionized Calcium Phosphorus Magnesium Iron TIBC Ferritin Total Bilirubin 1.80 H Direct Bilirubin AST 80 H ALT 62 H Alkaline Phosphatase 209 H Total Creatine Kinase 9758 H CK-MB (CK-2) Troponin T C-Reactive Protein Serum Total Protein Total Protein 5.2 L Albumin 2.2 L Srzvv-2-Uiuqruqmk Wnjjh-3-Xepwwxcvm PEP Interpretation Triglycerides LDL Cholesterol Direct HDL Cholesterol Free T4 PTH Intact Urine WBC (Auto) Urine Creatinine Salicylates Acetaminophen Crossmatch 03/23/19 03/23/19 03/23/19 05:28 05:31 11:33 WBC 29.7 H RBC 3.59 L Hgb 10.1 L Hct 31.1 L MCV MCH MCHC RDW 15.4 H Plt Count 47 L Lymph % (Auto) [place] % (Auto) Eos % (Auto) Lymph # [place] # Eos # Seg Neutrophils % Seg Neuts % (Manual) 89.0 H Lymphocytes % (Manual) 6.0 L Monocytes % (Manual) Eosinophils % (Manual) Nucleated RBC % 1.0 H Seg Neutrophils # Seg Neutrophils # Man 26.4 H Lymphocytes # (Manual) Monocytes # (Manual) Eosinophils # (Manual) PT INR D-Dimer Heparin Anti-Xa Level POC ABG pH ABG pH POC ABG pCO2 POC ABG pO2 ABG pO2 ABG HCO3 ABG O2 Saturation ABG Base Excess ABG Hemoglobin Oxyhemoglobin Sodium Potassium Chloride Carbon Dioxide BUN Creatinine Glucose POC Glucose 122 H 113 H Lactic Acid Calcium Ionized Calcium Phosphorus Magnesium Iron TIBC Ferritin Total Bilirubin Direct Bilirubin AST ALT Alkaline Phosphatase Total Creatine Kinase CK-MB (CK-2) Troponin T C-Reactive Protein Serum Total Protein Total Protein Albumin [place]-6-Gymjoougw Xtnyg-5-Ngrwcjjcy PEP Interpretation Triglycerides LDL Cholesterol Direct HDL Cholesterol Free T4 PTH Intact Urine WBC (Auto) Urine Creatinine Salicylates Acetaminophen Crossmatch 03/23/19 03/24/19 03/24/19 17:47 00:00 04:50 WBC 35.0 H RBC Hgb 10.4 L Hct 32.4 L MCV MCH MCHC RDW Plt Count 60 L Lymph % (Auto) [place] % (Auto) Eos % (Auto) Lymph # [place] # Eos # Seg Neutrophils % Seg Neuts % (Manual) 93.0 H Lymphocytes % (Manual) 5.0 L Monocytes % (Manual) Eosinophils % (Manual) Nucleated RBC % 7.0 H Seg Neutrophils # Seg Neutrophils # Man 32.6 H Lymphocytes # (Manual) Monocytes # (Manual) Eosinophils # (Manual) PT INR D-Dimer Heparin Anti-Xa Level POC ABG pH ABG pH POC ABG pCO2 POC ABG pO2 ABG pO2 ABG HCO3 ABG O2 Saturation ABG Base Excess ABG Hemoglobin Oxyhemoglobin Sodium Potassium Chloride Carbon Dioxide BUN Creatinine Glucose POC Glucose 111 H 108 H Lactic Acid Calcium Ionized Calcium Phosphorus Magnesium Iron TIBC Ferritin Total Bilirubin Direct Bilirubin AST ALT Alkaline Phosphatase Total Creatine Kinase CK-MB (CK-2) Troponin T C-Reactive Protein Serum Total Protein Total Protein Albumin Wrqby-7-Jypqekdyf Erjmq-7-Wralmmbid PEP Interpretation Triglycerides LDL Cholesterol Direct HDL Cholesterol Free T4 PTH Intact Urine WBC (Auto) Urine Creatinine Salicylates Acetaminophen Crossmatch 03/24/19 03/24/19 03/24/19 04:50 05:06 12:55 WBC RBC Hgb Hct MCV MCH MCHC RDW Plt Count Lymph % (Auto) [place] % (Auto) Eos % (Auto) Lymph # [place] # Eos # Seg Neutrophils % Seg Neuts % (Manual) Lymphocytes % (Manual) Monocytes % (Manual) Eosinophils % (Manual) Nucleated RBC % Seg Neutrophils # Seg Neutrophils # Man Lymphocytes # (Manual) Monocytes # (Manual) Eosinophils # (Manual) PT INR D-Dimer Heparin Anti-Xa Level POC ABG pH ABG pH POC ABG pCO2 POC ABG pO2 ABG pO2 ABG HCO3 ABG O2 Saturation ABG Base Excess ABG Hemoglobin Oxyhemoglobin Sodium 134 L Potassium 5.1 H Chloride 95.3 L Carbon Dioxide 21 L BUN 85 H Creatinine 6.4 H Glucose 109 H POC Glucose 112 H 110 H Lactic Acid Calcium 5.8 L* Ionized Calcium Phosphorus Magnesium Iron TIBC Ferritin Total Bilirubin Direct Bilirubin AST ALT Alkaline Phosphatase Total Creatine Kinase 5747 H CK-MB (CK-2) Troponin T C-Reactive Protein Serum Total Protein Total Protein Albumin Hxqmf-5-Qwkpqodhv Qzomi-4-Jgtokybow PEP Interpretation Triglycerides LDL Cholesterol Direct HDL Cholesterol Free T4 PTH Intact Urine WBC (Auto) Urine Creatinine Salicylates Acetaminophen Crossmatch 09/28/19 09/29/19 09/29/19 23:29 05:00 05:00 WBC RBC Hgb Hct MCV MCH MCHC RDW Plt Count Lymph % (Auto) [place] % (Auto) Eos % (Auto) Lymph # [place] # Eos # Seg Neutrophils % Seg Neuts % (Manual) Lymphocytes % (Manual) Monocytes % (Manual) Eosinophils % (Manual) Nucleated RBC % Seg Neutrophils # Seg Neutrophils # Man Lymphocytes # (Manual) Monocytes # (Manual) Eosinophils # (Manual) PT INR D-Dimer Heparin Anti-Xa Level POC ABG pH ABG pH POC ABG pCO2 POC ABG pO2 ABG pO2 ABG HCO3 ABG O2 Saturation ABG Base Excess ABG Hemoglobin Oxyhemoglobin Sodium 133 L Potassium Chloride 94.0 L Carbon Dioxide 21 L BUN 81 H Creatinine 6.4 H Glucose POC Glucose 109 H Lactic Acid Calcium 5.5 L* Ionized Calcium Phosphorus Magnesium Iron TIBC Ferritin Total Bilirubin Direct Bilirubin AST 80 H ALT Alkaline Phosphatase 202 H Total Creatine Kinase 3589 H CK-MB (CK-2) Troponin T C-Reactive Protein Serum Total Protein Total Protein 5.3 L Albumin 2.4 L Otexf-2-Vzkplgrui Inddk-8-Yjrdvghlv PEP Interpretation Triglycerides LDL Cholesterol Direct HDL Cholesterol Free T4 PTH Intact 329.9 H Urine WBC (Auto) Urine Creatinine Salicylates Acetaminophen Crossmatch 03/25/19 03/25/19 03/26/19 05:00 06:30 04:30 WBC 23.3 H RBC 3.61 L Hgb 10.2 L Hct 31.2 L MCV MCH MCHC RDW Plt Count 57 L Lymph % (Auto) [place] % (Auto) Eos % (Auto) Lymph # [place] # Eos # Seg Neutrophils % Seg Neuts % (Manual) 92.0 H Lymphocytes % (Manual) 6.0 L Monocytes % (Manual) Eosinophils % (Manual) Nucleated RBC % Seg Neutrophils # Seg Neutrophils # Man 21.4 H Lymphocytes # (Manual) Monocytes # (Manual) Eosinophils # (Manual) PT INR D-Dimer Heparin Anti-Xa Level POC ABG pH ABG pH 7.326 L POC ABG pCO2 POC ABG pO2 ABG pO2 109.5 H 137.4 H ABG HCO3 18.8 L 18.6 L ABG O2 Saturation ABG Base Excess -4.4 L -6.8 L ABG Hemoglobin 10.1 L 9.9 L Oxyhemoglobin Sodium Potassium Chloride Carbon Dioxide BUN Creatinine Glucose POC Glucose Lactic Acid Calcium Ionized Calcium Phosphorus Magnesium Iron TIBC Ferritin Total Bilirubin Direct Bilirubin AST ALT Alkaline Phosphatase Total Creatine Kinase CK-MB (CK-2) Troponin T C-Reactive Protein Serum Total Protein Total Protein Albumin Hsvgh-6-Epoibwprk Pyiyg-1-Dmmdrjxal PEP Interpretation Triglycerides LDL Cholesterol Direct HDL Cholesterol Free T4 PTH Intact Urine WBC (Auto) Urine Creatinine Salicylates Acetaminophen Crossmatch 03/26/19 03/26/19 03/26/19 23:22 Unknown Unknown WBC 19.5 H RBC 3.44 L Hgb 9.8 L Hct 29.9 L MCV MCH MCHC RDW Plt Count 85 L Lymph % (Auto) [place] % (Auto) Eos % (Auto) Lymph # [place] # Eos # Seg Neutrophils % Seg Neuts % (Manual) 95.0 H Lymphocytes % (Manual) 3.0 L Monocytes % (Manual) Eosinophils % (Manual) Nucleated RBC % Seg Neutrophils # Seg Neutrophils # Man 18.5 H Lymphocytes # (Manual) 0.6 L Monocytes # (Manual) Eosinophils # (Manual) PT INR D-Dimer Heparin Anti-Xa Level POC ABG pH ABG pH POC ABG pCO2 POC ABG pO2 ABG pO2 ABG HCO3 ABG O2 Saturation ABG Base Excess ABG Hemoglobin Oxyhemoglobin Sodium 135 L Potassium 5.2 H D Chloride 92.2 L Carbon Dioxide 18 L BUN 109 H Creatinine 8.5 H Glucose 117 H POC Glucose 69 L Lactic Acid Calcium 4.5 L* D Ionized Calcium Phosphorus Magnesium Iron TIBC Ferritin Total Bilirubin Direct Bilirubin AST ALT Alkaline Phosphatase Total Creatine Kinase 4527 H CK-MB (CK-2) Troponin T C-Reactive Protein Serum Total Protein Total Protein Albumin Rrvxj-9-Mjofcparb Ftdzk-8-Tpmikhiny PEP Interpretation Triglycerides LDL Cholesterol Direct HDL Cholesterol Free T4 PTH Intact Urine WBC (Auto) Urine Creatinine Salicylates Acetaminophen Crossmatch 03/27/19 03/27/19 03/27/19 04:30 04:30 09:00 WBC 19.2 H RBC 3.42 L Hgb 9.9 L Hct 30.0 L MCV MCH MCHC RDW Plt Count 84 L Lymph % (Auto) [place] % (Auto) Eos % (Auto) Lymph # [place] # Eos # Seg Neutrophils % Seg Neuts % (Manual) Lymphocytes % (Manual) Monocytes % (Manual) Eosinophils % (Manual) Nucleated RBC % Seg Neutrophils # Seg Neutrophils # Man Lymphocytes # (Manual) Monocytes # (Manual) Eosinophils # (Manual) PT INR D-Dimer Heparin Anti-Xa Level POC ABG pH ABG pH POC ABG pCO2 POC ABG pO2 ABG pO2 ABG HCO3 ABG O2 Saturation ABG Base Excess ABG Hemoglobin Oxyhemoglobin Sodium 135 L Potassium Chloride 93.5 L Carbon Dioxide BUN 84 H Creatinine 7.1 H Glucose POC Glucose Lactic Acid Calcium 5.0 L* Ionized Calcium Phosphorus Magnesium Iron TIBC Ferritin Total Bilirubin Direct Bilirubin AST 78 H ALT Alkaline Phosphatase 135 H Total Creatine Kinase 4677 H CK-MB (CK-2) Troponin T C-Reactive Protein Serum Total Protein Total Protein 4.8 L Albumin 2.3 L Vblhd-5-Uwdrapafs Utrzb-5-Ydbvkndre PEP Interpretation Triglycerides 409 H LDL Cholesterol Direct HDL Cholesterol Free T4 PTH Intact Urine WBC (Auto) Urine Creatinine Salicylates Acetaminophen Crossmatch 03/27/19 03/27/19 03/27/19 12:37 14:15 14:15 WBC RBC Hgb 9.7 L Hct 29.5 L MCV MCH MCHC RDW Plt Count 87 L Lymph % (Auto) [place] % (Auto) Eos % (Auto) Lymph # [place] # Eos # Seg Neutrophils % Seg Neuts % (Manual) Lymphocytes % (Manual) Monocytes % (Manual) Eosinophils % (Manual) Nucleated RBC % Seg Neutrophils # Seg Neutrophils # Man Lymphocytes # (Manual) Monocytes # (Manual) Eosinophils # (Manual) PT 15.9 H INR 1.30 H D-Dimer Heparin Anti-Xa Level POC ABG pH ABG pH POC ABG pCO2 POC ABG pO2 ABG pO2 ABG HCO3 ABG O2 Saturation ABG Base Excess ABG Hemoglobin Oxyhemoglobin Sodium Potassium Chloride Carbon Dioxide BUN Creatinine Glucose POC Glucose 129 H Lactic Acid Calcium Ionized Calcium Phosphorus Magnesium Iron TIBC Ferritin Total Bilirubin Direct Bilirubin AST ALT Alkaline Phosphatase Total Creatine Kinase CK-MB (CK-2) Troponin T C-Reactive Protein Serum Total Protein Total Protein Albumin Zalmj-3-Fndvzizxz Krcux-8-Dewexdsvf PEP Interpretation Triglycerides LDL Cholesterol Direct HDL Cholesterol Free T4 PTH Intact Urine WBC (Auto) Urine Creatinine Salicylates Acetaminophen Crossmatch 03/27/19 03/27/19 03/27/19 18:00 19:22 19:23 WBC RBC Hgb Hct MCV MCH MCHC RDW Plt Count Lymph % (Auto) [place] % (Auto) Eos % (Auto) Lymph # [place] # Eos # Seg Neutrophils % Seg Neuts % (Manual) Lymphocytes % (Manual) Monocytes % (Manual) Eosinophils % (Manual) Nucleated RBC % Seg Neutrophils # Seg Neutrophils # Man Lymphocytes # (Manual) Monocytes # (Manual) Eosinophils # (Manual) PT INR D-Dimer Heparin Anti-Xa Level < 0.10 L POC ABG pH ABG pH POC ABG pCO2 POC ABG pO2 ABG pO2 ABG HCO3 ABG O2 Saturation ABG Base Excess ABG Hemoglobin Oxyhemoglobin Sodium Potassium Chloride Carbon Dioxide BUN Creatinine Glucose POC Glucose 121 H Lactic Acid Calcium Ionized Calcium Phosphorus Magnesium Iron TIBC Ferritin Total Bilirubin Direct Bilirubin AST ALT Alkaline Phosphatase Total Creatine Kinase 4517 H CK-MB (CK-2) Troponin T C-Reactive Protein Serum Total Protein Total Protein Albumin Dvuyd-2-Faucotbso Leree-4-Zyqxeckez PEP Interpretation Triglycerides LDL Cholesterol Direct HDL Cholesterol Free T4 PTH Intact Urine WBC (Auto) Urine Creatinine Salicylates Acetaminophen Crossmatch 03/27/19 03/27/19 03/28/19 22:10 23:52 03:49 WBC RBC Hgb Hct MCV MCH MCHC RDW Plt Count Lymph % (Auto) [place] % (Auto) Eos % (Auto) Lymph # [place] # Eos # Seg Neutrophils % Seg Neuts % (Manual) Lymphocytes % (Manual) Monocytes % (Manual) Eosinophils % (Manual) Nucleated RBC % Seg Neutrophils # Seg Neutrophils # Man Lymphocytes # (Manual) Monocytes # (Manual) Eosinophils # (Manual) PT INR D-Dimer Heparin Anti-Xa Level POC ABG pH 7.338 L ABG pH POC ABG pCO2 33.1 L POC ABG pO2 ABG pO2 ABG HCO3 ABG O2 Saturation ABG Base Excess ABG Hemoglobin Oxyhemoglobin Sodium Potassium Chloride Carbon Dioxide BUN Creatinine Glucose POC Glucose 113 H 117 H Lactic Acid Calcium Ionized Calcium Phosphorus Magnesium Iron TIBC Ferritin Total Bilirubin Direct Bilirubin AST ALT Alkaline Phosphatase Total Creatine Kinase CK-MB (CK-2) Troponin T C-Reactive Protein Serum Total Protein Total Protein Albumin Vjsvv-6-Qdxysegto Skact-8-Pwvyhvkdg PEP Interpretation Triglycerides LDL Cholesterol Direct HDL Cholesterol Free T4 PTH Intact Urine WBC (Auto) Urine Creatinine Salicylates Acetaminophen Crossmatch 03/28/19 03/28/19 03/28/19 05:13 05:13 06:18 WBC RBC Hgb Hct MCV MCH MCHC RDW Plt Count Lymph % (Auto) [place] % (Auto) Eos % (Auto) Lymph # [place] # Eos # Seg Neutrophils % Seg Neuts % (Manual) Lymphocytes % (Manual) Monocytes % (Manual) Eosinophils % (Manual) Nucleated RBC % Seg Neutrophils # Seg Neutrophils # Man Lymphocytes # (Manual) Monocytes # (Manual) Eosinophils # (Manual) PT INR D-Dimer Heparin Anti-Xa Level 0.23 L POC ABG pH ABG pH POC ABG pCO2 POC ABG pO2 ABG pO2 ABG HCO3 ABG O2 Saturation ABG Base Excess ABG Hemoglobin Oxyhemoglobin Sodium 135 L Potassium 5.5 H D Chloride 95.1 L Carbon Dioxide 16 L D BUN 129 H Creatinine 9.3 H Glucose 158 H POC Glucose 202 H Lactic Acid Calcium 4.0 L* D Ionized Calcium Phosphorus 12.40 H Magnesium Iron TIBC Ferritin Total Bilirubin Direct Bilirubin AST ALT Alkaline Phosphatase Total Creatine Kinase 4266 H CK-MB (CK-2) Troponin T C-Reactive Protein Serum Total Protein Total Protein Albumin Cyvbv-5-Yrggcfmrq Vdcrf-4-Ssyitixyz PEP Interpretation Triglycerides LDL Cholesterol Direct HDL Cholesterol Free T4 PTH Intact Urine WBC (Auto) Urine Creatinine Salicylates Acetaminophen Crossmatch 03/28/19 03/28/19 03/28/19 08:25 10:00 12:00 WBC RBC Hgb 4.9 L* D Hct 15.4 L* D MCV MCH MCHC RDW Plt Count Lymph % (Auto) [place] % (Auto) Eos % (Auto) Lymph # [place] # Eos # Seg Neutrophils % Seg Neuts % (Manual) Lymphocytes % (Manual) Monocytes % (Manual) Eosinophils % (Manual) Nucleated RBC % Seg Neutrophils # Seg Neutrophils # Man Lymphocytes # (Manual) Monocytes # (Manual) Eosinophils # (Manual) PT 17.9 H INR 1.52 H D-Dimer 4845.98 H Heparin Anti-Xa Level POC ABG pH ABG pH POC ABG pCO2 POC ABG pO2 ABG pO2 ABG HCO3 ABG O2 Saturation ABG Base Excess ABG Hemoglobin Oxyhemoglobin Sodium Potassium Chloride Carbon Dioxide BUN Creatinine Glucose POC Glucose Lactic Acid Calcium Ionized Calcium Phosphorus Magnesium Iron TIBC Ferritin Total Bilirubin Direct Bilirubin AST ALT Alkaline Phosphatase Total Creatine Kinase CK-MB (CK-2) Troponin T C-Reactive Protein Serum Total Protein Total Protein Albumin Hmlkg-7-Eczzwxcwl Sbgbx-3-Bnxtbpekh PEP Interpretation Triglycerides LDL Cholesterol Direct HDL Cholesterol Free T4 PTH Intact Urine WBC (Auto) Urine Creatinine Salicylates Acetaminophen Crossmatch See Detail 03/28/19 03/28/19 03/28/19 12:28 14:10 17:43 WBC RBC Hgb 5.9 L* Hct 18.3 L* MCV MCH MCHC RDW Plt Count Lymph % (Auto) [place] % (Auto) Eos % (Auto) Lymph # [place] # Eos # Seg Neutrophils % Seg Neuts % (Manual) Lymphocytes % (Manual) Monocytes % (Manual) Eosinophils % (Manual) Nucleated RBC % Seg Neutrophils # Seg Neutrophils # Man Lymphocytes # (Manual) Monocytes # (Manual) Eosinophils # (Manual) PT INR D-Dimer Heparin Anti-Xa Level POC ABG pH ABG pH POC ABG pCO2 POC ABG pO2 ABG pO2 ABG HCO3 ABG O2 Saturation ABG Base Excess ABG Hemoglobin Oxyhemoglobin Sodium Potassium Chloride Carbon Dioxide BUN Creatinine Glucose POC Glucose 153 H 159 H Lactic Acid Calcium Ionized Calcium Phosphorus Magnesium Iron TIBC Ferritin Total Bilirubin Direct Bilirubin AST ALT Alkaline Phosphatase Total Creatine Kinase CK-MB (CK-2) Troponin T C-Reactive Protein Serum Total Protein Total Protein Albumin Gkmie-7-Gddrrllgd Xwvjv-9-Bvlxianfo PEP Interpretation Triglycerides LDL Cholesterol Direct HDL Cholesterol Free T4 PTH Intact Urine WBC (Auto) Urine Creatinine Salicylates Acetaminophen Crossmatch 03/28/19 03/28/19 03/28/19 18:10 Unknown 23:59 WBC 24.8 H RBC 3.42 L Hgb 10.2 L D Hct 31.1 L D MCV MCH MCHC RDW 15.4 H Plt Count 54 L Lymph % (Auto) [place] % (Auto) Eos % (Auto) Lymph # [place] # Eos # Seg Neutrophils % Seg Neuts % (Manual) 91.0 H Lymphocytes % (Manual) 8.0 L Monocytes % (Manual) Eosinophils % (Manual) Nucleated RBC % Seg Neutrophils # Seg Neutrophils # Man 22.6 H Lymphocytes # (Manual) Monocytes # (Manual) Eosinophils # (Manual) PT INR D-Dimer Heparin Anti-Xa Level POC ABG pH ABG pH POC ABG pCO2 POC ABG pO2 ABG pO2 ABG HCO3 ABG O2 Saturation ABG Base Excess ABG Hemoglobin Oxyhemoglobin Sodium Potassium 5.7 H Chloride Carbon Dioxide BUN Creatinine Glucose POC Glucose 107 H Lactic Acid Calcium Ionized Calcium Phosphorus Magnesium Iron TIBC Ferritin Total Bilirubin Direct Bilirubin AST ALT Alkaline Phosphatase Total Creatine Kinase CK-MB (CK-2) Troponin T C-Reactive Protein Serum Total Protein Total Protein Albumin Mzhen-6-Nxfdjulyw Eipxz-8-Lsidrqxdb PEP Interpretation Triglycerides LDL Cholesterol Direct HDL Cholesterol Free T4 PTH Intact Urine WBC (Auto) Urine Creatinine Salicylates Acetaminophen Crossmatch 03/29/19 03/29/19 03/29/19 04:29 05:46 06:22 WBC RBC Hgb 8.6 L Hct 25.7 L MCV MCH MCHC RDW Plt Count 93 L Lymph % (Auto) [place] % (Auto) Eos % (Auto) Lymph # [place] # Eos # Seg Neutrophils % Seg Neuts % (Manual) Lymphocytes % (Manual) Monocytes % (Manual) Eosinophils % (Manual) Nucleated RBC % Seg Neutrophils # Seg Neutrophils # Man Lymphocytes # (Manual) Monocytes # (Manual) Eosinophils # (Manual) PT INR D-Dimer Heparin Anti-Xa Level POC ABG pH ABG pH POC ABG pCO2 32.2 L POC ABG pO2 ABG pO2 ABG HCO3 ABG O2 Saturation ABG Base Excess ABG Hemoglobin Oxyhemoglobin Sodium Potassium Chloride Carbon Dioxide BUN Creatinine Glucose POC Glucose 113 H Lactic Acid Calcium Ionized Calcium Phosphorus Magnesium Iron TIBC Ferritin Total Bilirubin Direct Bilirubin AST ALT Alkaline Phosphatase Total Creatine Kinase CK-MB (CK-2) Troponin T C-Reactive Protein Serum Total Protein Total Protein Albumin Ylizv-1-Xrtvrnbia Nxflp-4-Equtqheug PEP Interpretation Triglycerides LDL Cholesterol Direct HDL Cholesterol Free T4 PTH Intact Urine WBC (Auto) Urine Creatinine Salicylates Acetaminophen Crossmatch 03/29/19 03/29/19 03/29/19 06:22 06:22 06:22 WBC 23.2 H RBC 2.91 L Hgb 8.6 L Hct 25.8 L MCV MCH MCHC RDW Plt Count 91 L Lymph % (Auto) [place] % (Auto) Eos % (Auto) Lymph # [place] # Eos # Seg Neutrophils % Seg Neuts % (Manual) Lymphocytes % (Manual) Monocytes % (Manual) Eosinophils % (Manual) Nucleated RBC % Seg Neutrophils # Seg Neutrophils # Man Lymphocytes # (Manual) Monocytes # (Manual) Eosinophils # (Manual) PT INR D-Dimer Heparin Anti-Xa Level POC ABG pH ABG pH POC ABG pCO2 POC ABG pO2 ABG pO2 ABG HCO3 ABG O2 Saturation ABG Base Excess ABG Hemoglobin Oxyhemoglobin Sodium 133 L Potassium Chloride 93.8 L Carbon Dioxide 18 L BUN 109 H Creatinine 7.4 H Glucose 124 H POC Glucose Lactic Acid Calcium 4.6 L* Ionized Calcium Phosphorus Magnesium Iron TIBC Ferritin Total Bilirubin Direct Bilirubin AST ALT Alkaline Phosphatase Total Creatine Kinase 3401 H CK-MB (CK-2) Troponin T C-Reactive Protein Serum Total Protein Total Protein Albumin Tqgoq-6-Wvnkebmxd Kjgxt-4-Sucbkvxwu PEP Interpretation Triglycerides 309 H LDL Cholesterol Direct HDL Cholesterol Free T4 PTH Intact Urine WBC (Auto) Urine Creatinine Salicylates Acetaminophen Crossmatch 03/29/19 03/29/19 03/29/19 11:48 11:48 18:24 WBC RBC Hgb 7.8 L Hct 23.2 L MCV MCH MCHC RDW Plt Count Lymph % (Auto) [place] % (Auto) Eos % (Auto) Lymph # [place] # Eos # Seg Neutrophils % Seg Neuts % (Manual) Lymphocytes % (Manual) Monocytes % (Manual) Eosinophils % (Manual) Nucleated RBC % Seg Neutrophils # Seg Neutrophils # Man Lymphocytes # (Manual) Monocytes # (Manual) Eosinophils # (Manual) PT 15.3 H INR 1.24 H D-Dimer Heparin Anti-Xa Level POC ABG pH ABG pH POC ABG pCO2 POC ABG pO2 ABG pO2 ABG HCO3 ABG O2 Saturation ABG Base Excess ABG Hemoglobin Oxyhemoglobin Sodium Potassium Chloride Carbon Dioxide BUN Creatinine Glucose POC Glucose 122 H Lactic Acid Calcium Ionized Calcium Phosphorus Magnesium Iron TIBC Ferritin Total Bilirubin Direct Bilirubin AST ALT Alkaline Phosphatase Total Creatine Kinase CK-MB (CK-2) Troponin T C-Reactive Protein Serum Total Protein Total Protein Albumin Gcjps-3-Xhvhlzxfk Fgdeq-6-Sfcqylbgl PEP Interpretation Triglycerides LDL Cholesterol Direct HDL Cholesterol Free T4 PTH Intact Urine WBC (Auto) Urine Creatinine Salicylates Acetaminophen Crossmatch 03/30/19 03/30/19 03/30/19 00:40 04:31 05:04 WBC RBC Hgb 7.6 L Hct 23.0 L MCV MCH MCHC RDW Plt Count Lymph % (Auto) [place] % (Auto) Eos % (Auto) Lymph # [place] # Eos # Seg Neutrophils % Seg Neuts % (Manual) Lymphocytes % (Manual) Monocytes % (Manual) Eosinophils % (Manual) Nucleated RBC % Seg Neutrophils # Seg Neutrophils # Man Lymphocytes # (Manual) Monocytes # (Manual) Eosinophils # (Manual) PT INR D-Dimer Heparin Anti-Xa Level POC ABG pH 7.346 L ABG pH POC ABG pCO2 POC ABG pO2 62 L ABG pO2 ABG HCO3 ABG O2 Saturation ABG Base Excess ABG Hemoglobin Oxyhemoglobin Sodium Potassium Chloride Carbon Dioxide BUN 79 H Creatinine 6.4 H Glucose POC Glucose Lactic Acid Calcium 6.1 L D Ionized Calcium Phosphorus Magnesium Iron TIBC Ferritin Total Bilirubin Direct Bilirubin AST ALT Alkaline Phosphatase Total Creatine Kinase CK-MB (CK-2) Troponin T C-Reactive Protein Serum Total Protein Total Protein Albumin Xthhm-8-Lmmqkwigc Lgrcj-2-Fffmsuyqk PEP Interpretation Triglycerides LDL Cholesterol Direct HDL Cholesterol Free T4 PTH Intact Urine WBC (Auto) Urine Creatinine Salicylates Acetaminophen Crossmatch 03/30/19 03/30/19 03/30/19 08:45 12:09 22:43 WBC 14.3 H RBC 2.33 L Hgb 7.0 L 7.4 L Hct 21.0 L 22.3 L MCV MCH MCHC RDW 15.6 H Plt Count 135 L Lymph % (Auto) [place] % (Auto) Eos % (Auto) Lymph # [place] # Eos # Seg Neutrophils % Seg Neuts % (Manual) Lymphocytes % (Manual) Monocytes % (Manual) Eosinophils % (Manual) Nucleated RBC % Seg Neutrophils # Seg Neutrophils # Man Lymphocytes # (Manual) Monocytes # (Manual) Eosinophils # (Manual) PT INR D-Dimer Heparin Anti-Xa Level POC ABG pH ABG pH POC ABG pCO2 POC ABG pO2 ABG pO2 ABG HCO3 ABG O2 Saturation ABG Base Excess ABG Hemoglobin Oxyhemoglobin Sodium Potassium Chloride Carbon Dioxide BUN Creatinine Glucose POC Glucose Lactic Acid Calcium Ionized Calcium 3.7 L Phosphorus Magnesium Iron TIBC Ferritin Total Bilirubin Direct Bilirubin AST ALT Alkaline Phosphatase Total Creatine Kinase CK-MB (CK-2) Troponin T C-Reactive Protein Serum Total Protein Total Protein Albumin Rlrdu-2-Qxpeulykl Wbhno-2-Pyuokccxt PEP Interpretation Triglycerides LDL Cholesterol Direct HDL Cholesterol Free T4 PTH Intact Urine WBC (Auto) Urine Creatinine Salicylates Acetaminophen Crossmatch 03/30/19 03/30/19 03/31/19 23:38 Unknown 04:44 WBC 11.5 H RBC 2.40 L Hgb 7.3 L Hct 21.9 L MCV MCH MCHC RDW 15.4 H Plt Count Lymph % (Auto) 10.6 L [place] % (Auto) Eos % (Auto) Lymph # [place] # Eos # Seg Neutrophils % 81.7 H Seg Neuts % (Manual) Lymphocytes % (Manual) Monocytes % (Manual) Eosinophils % (Manual) Nucleated RBC % Seg Neutrophils # 9.4 H Seg Neutrophils # Man Lymphocytes # (Manual) Monocytes # (Manual) Eosinophils # (Manual) PT INR D-Dimer Heparin Anti-Xa Level POC ABG pH ABG pH POC ABG pCO2 POC ABG pO2 ABG pO2 ABG HCO3 ABG O2 Saturation ABG Base Excess ABG Hemoglobin Oxyhemoglobin Sodium Potassium Chloride Carbon Dioxide BUN Creatinine Glucose POC Glucose 155 H Lactic Acid Calcium Ionized Calcium Phosphorus Magnesium Iron TIBC Ferritin Total Bilirubin Direct Bilirubin 0.4 H AST 63 H ALT Alkaline Phosphatase Total Creatine Kinase CK-MB (CK-2) Troponin T C-Reactive Protein Serum Total Protein Total Protein 4.9 L Albumin 2.2 L Gskxw-5-Hqwfubnqr Eovws-3-Jztgizrhk PEP Interpretation Triglycerides LDL Cholesterol Direct HDL Cholesterol Free T4 PTH Intact Urine WBC (Auto) Urine Creatinine Salicylates Acetaminophen Crossmatch 03/31/19 03/31/19 03/31/19 04:44 05:44 08:20 WBC RBC Hgb Hct MCV MCH MCHC RDW Plt Count Lymph % (Auto) [place] % (Auto) Eos % (Auto) Lymph # [place] # Eos # Seg Neutrophils % Seg Neuts % (Manual) Lymphocytes % (Manual) Monocytes % (Manual) Eosinophils % (Manual) Nucleated RBC % Seg Neutrophils # Seg Neutrophils # Man Lymphocytes # (Manual) Monocytes # (Manual) Eosinophils # (Manual) PT INR D-Dimer Heparin Anti-Xa Level POC ABG pH ABG pH POC ABG pCO2 53.5 H POC ABG pO2 62 L ABG pO2 ABG HCO3 ABG O2 Saturation ABG Base Excess ABG Hemoglobin Oxyhemoglobin Sodium 135 L Potassium Chloride 96.7 L Carbon Dioxide 19 L BUN 94 H Creatinine 7.8 H Glucose POC Glucose Lactic Acid Calcium 5.3 L* Ionized Calcium Phosphorus 8.20 H Magnesium Iron TIBC Ferritin Total Bilirubin Direct Bilirubin 0.4 H AST 60 H ALT Alkaline Phosphatase Total Creatine Kinase CK-MB (CK-2) Troponin T C-Reactive Protein Serum Total Protein Total Protein 4.8 L Albumin 2.1 L Pvfbt-2-Llcijrrgx Qqjsu-8-Cwxpytgym PEP Interpretation Triglycerides LDL Cholesterol Direct HDL Cholesterol Free T4 PTH Intact Urine WBC (Auto) Urine Creatinine Salicylates Acetaminophen Crossmatch 03/31/19 04/01/19 04/01/19 22:14 04:27 04:27 WBC RBC 2.60 L Hgb 8.0 L Hct 24.1 L MCV MCH MCHC RDW 15.7 H Plt Count Lymph % (Auto) 7.9 L [place] % (Auto) Eos % (Auto) Lymph # 0.7 L [place] # Eos # Seg Neutrophils % 83.6 H Seg Neuts % (Manual) Lymphocytes % (Manual) Monocytes % (Manual) Eosinophils % (Manual) Nucleated RBC % Seg Neutrophils # Seg Neutrophils # Man Lymphocytes # (Manual) Monocytes # (Manual) Eosinophils # (Manual) PT INR D-Dimer Heparin Anti-Xa Level POC ABG pH 7.286 L ABG pH POC ABG pCO2 54.7 H POC ABG pO2 179 H ABG pO2 ABG HCO3 ABG O2 Saturation ABG Base Excess ABG Hemoglobin Oxyhemoglobin Sodium Potassium Chloride Carbon Dioxide BUN 68 H Creatinine 6.6 H Glucose POC Glucose Lactic Acid Calcium 6.5 L D Ionized Calcium Phosphorus 7.30 H Magnesium Iron TIBC Ferritin Total Bilirubin Direct Bilirubin AST ALT Alkaline Phosphatase Total Creatine Kinase 1652 H CK-MB (CK-2) Troponin T C-Reactive Protein Serum Total Protein Total Protein Albumin Sclta-1-Wfickexgt Spars-6-Gdltfbupm PEP Interpretation Triglycerides LDL Cholesterol Direct HDL Cholesterol Free T4 PTH Intact Urine WBC (Auto) Urine Creatinine Salicylates Acetaminophen Crossmatch 04/01/19 04/01/19 04/01/19 05:14 05:37 18:37 WBC RBC Hgb Hct MCV MCH MCHC RDW Plt Count Lymph % (Auto) [place] % (Auto) Eos % (Auto) Lymph # [place] # Eos # Seg Neutrophils % Seg Neuts % (Manual) Lymphocytes % (Manual) Monocytes % (Manual) Eosinophils % (Manual) Nucleated RBC % Seg Neutrophils # Seg Neutrophils # Man Lymphocytes # (Manual) Monocytes # (Manual) Eosinophils # (Manual) PT INR D-Dimer Heparin Anti-Xa Level POC ABG pH 7.283 L ABG pH POC ABG pCO2 53.4 H POC ABG pO2 241 H ABG pO2 ABG HCO3 ABG O2 Saturation ABG Base Excess ABG Hemoglobin Oxyhemoglobin Sodium Potassium Chloride Carbon Dioxide BUN Creatinine Glucose POC Glucose 111 H 119 H Lactic Acid Calcium Ionized Calcium Phosphorus Magnesium Iron TIBC Ferritin Total Bilirubin Direct Bilirubin AST ALT Alkaline Phosphatase Total Creatine Kinase CK-MB (CK-2) Troponin T C-Reactive Protein Serum Total Protein Total Protein Albumin Kjjze-9-Tfggkhvhl Lbjrt-3-Fkqgaqvtg PEP Interpretation Triglycerides LDL Cholesterol Direct HDL Cholesterol Free T4 PTH Intact Urine WBC (Auto) Urine Creatinine Salicylates Acetaminophen Crossmatch 04/01/19 04/02/19 04/02/19 21:28 04:40 05:03 WBC RBC 2.36 L Hgb 7.2 L Hct 21.9 L MCV MCH MCHC RDW 16.0 H Plt Count Lymph % (Auto) 10.8 L [place] % (Auto) Eos % (Auto) Lymph # 0.8 L [place] # Eos # Seg Neutrophils % 80.3 H Seg Neuts % (Manual) Lymphocytes % (Manual) Monocytes % (Manual) Eosinophils % (Manual) Nucleated RBC % Seg Neutrophils # Seg Neutrophils # Man Lymphocytes # (Manual) Monocytes # (Manual) Eosinophils # (Manual) PT INR D-Dimer Heparin Anti-Xa Level POC ABG pH 7.299 L 7.300 L ABG pH POC ABG pCO2 48.2 H 45.2 H POC ABG pO2 133 H 107 H ABG pO2 ABG HCO3 ABG O2 Saturation ABG Base Excess ABG Hemoglobin Oxyhemoglobin Sodium Potassium Chloride Carbon Dioxide BUN Creatinine Glucose POC Glucose Lactic Acid Calcium Ionized Calcium Phosphorus Magnesium Iron TIBC Ferritin Total Bilirubin Direct Bilirubin AST ALT Alkaline Phosphatase Total Creatine Kinase CK-MB (CK-2) Troponin T C-Reactive Protein Serum Total Protein Total Protein Albumin Qqauu-3-Suwzosyzq Yinah-7-Xngjyefeo PEP Interpretation Triglycerides LDL Cholesterol Direct HDL Cholesterol Free T4 PTH Intact Urine WBC (Auto) Urine Creatinine Salicylates Acetaminophen Crossmatch 04/02/19 04/02/19 04/02/19 05:03 05:03 12:15 WBC RBC Hgb 7.4 L Hct 22.6 L MCV MCH MCHC RDW Plt Count Lymph % (Auto) [place] % (Auto) Eos % (Auto) Lymph # [place] # Eos # Seg Neutrophils % Seg Neuts % (Manual) Lymphocytes % (Manual) Monocytes % (Manual) Eosinophils % (Manual) Nucleated RBC % Seg Neutrophils # Seg Neutrophils # Man Lymphocytes # (Manual) Monocytes # (Manual) Eosinophils # (Manual) PT INR D-Dimer Heparin Anti-Xa Level POC ABG pH ABG pH POC ABG pCO2 POC ABG pO2 ABG pO2 ABG HCO3 ABG O2 Saturation ABG Base Excess ABG Hemoglobin Oxyhemoglobin Sodium 136 L Potassium Chloride 97.8 L Carbon Dioxide 18 L BUN 82 H Creatinine 8.2 H Glucose POC Glucose Lactic Acid Calcium 6.7 L Ionized Calcium Phosphorus 7.50 H Magnesium Iron 26 L TIBC 138 L Ferritin 607.0 H Total Bilirubin Direct Bilirubin AST ALT Alkaline Phosphatase Total Creatine Kinase CK-MB (CK-2) Troponin T C-Reactive Protein Serum Total Protein Total Protein Albumin Nzbll-1-Qfwboxbxb Itlnd-5-Ewrnppdnd PEP Interpretation Triglycerides LDL Cholesterol Direct HDL Cholesterol Free T4 PTH Intact Urine WBC (Auto) Urine Creatinine Salicylates Acetaminophen Crossmatch 04/02/19 04/02/19 04/03/19 16:34 17:14 04:18 WBC RBC Hgb Hct MCV MCH MCHC RDW Plt Count Lymph % (Auto) [place] % (Auto) Eos % (Auto) Lymph # [place] # Eos # Seg Neutrophils % Seg Neuts % (Manual) Lymphocytes % (Manual) Monocytes % (Manual) Eosinophils % (Manual) Nucleated RBC % Seg Neutrophils # Seg Neutrophils # Man Lymphocytes # (Manual) Monocytes # (Manual) Eosinophils # (Manual) PT INR D-Dimer Heparin Anti-Xa Level POC ABG pH ABG pH POC ABG pCO2 POC ABG pO2 146 H ABG pO2 ABG HCO3 ABG O2 Saturation ABG Base Excess ABG Hemoglobin Oxyhemoglobin Sodium Potassium Chloride Carbon Dioxide BUN Creatinine Glucose POC Glucose 108 H Lactic Acid Calcium Ionized Calcium Phosphorus Magnesium Iron TIBC Ferritin Total Bilirubin Direct Bilirubin AST ALT Alkaline Phosphatase Total Creatine Kinase CK-MB (CK-2) Troponin T C-Reactive Protein Serum Total Protein Total Protein Albumin Xfpde-2-Qaizeahjl Vxljb-0-Tugulkwjr PEP Interpretation Triglycerides LDL Cholesterol Direct HDL Cholesterol Free T4 PTH Intact Urine WBC (Auto) Urine Creatinine Salicylates Acetaminophen Crossmatch See Detail 04/03/19 04/03/19 04/03/19 04:25 08:30 18:24 WBC RBC 2.40 L Hgb 7.3 L Hct 21.9 L MCV MCH MCHC RDW Plt Count Lymph % (Auto) [place] % (Auto) 7.7 H Eos % (Auto) Lymph # 0.9 L [place] # Eos # Seg Neutrophils % 74.6 H Seg Neuts % (Manual) Lymphocytes % (Manual) Monocytes % (Manual) Eosinophils % (Manual) Nucleated RBC % Seg Neutrophils # Seg Neutrophils # Man Lymphocytes # (Manual) Monocytes # (Manual) Eosinophils # (Manual) PT INR D-Dimer Heparin Anti-Xa Level POC ABG pH ABG pH POC ABG pCO2 POC ABG pO2 ABG pO2 ABG HCO3 ABG O2 Saturation ABG Base Excess ABG Hemoglobin Oxyhemoglobin Sodium 136 L Potassium Chloride 97.0 L Carbon Dioxide BUN 58 H Creatinine 7.3 H Glucose POC Glucose 106 H Lactic Acid Calcium 7.5 L Ionized Calcium Phosphorus 5.80 H D Magnesium Iron TIBC Ferritin Total Bilirubin Direct Bilirubin AST ALT Alkaline Phosphatase Total Creatine Kinase CK-MB (CK-2) Troponin T C-Reactive Protein Serum Total Protein Total Protein Albumin Flhgf-8-Mlxgnpbpa Rrhov-4-Iapkcgowj PEP Interpretation Triglycerides LDL Cholesterol Direct HDL Cholesterol Free T4 PTH Intact Urine WBC (Auto) Urine Creatinine Salicylates Acetaminophen Crossmatch 04/03/19 04/04/19 04/04/19 23:43 04:47 04:47 WBC RBC 2.72 L Hgb 8.3 L Hct 24.7 L MCV MCH MCHC RDW 15.6 H Plt Count Lymph % (Auto) [place] % (Auto) 10.1 H Eos % (Auto) Lymph # 0.8 L [place] # Eos # Seg Neutrophils % 71.4 H Seg Neuts % (Manual) Lymphocytes % (Manual) Monocytes % (Manual) Eosinophils % (Manual) Nucleated RBC % Seg Neutrophils # Seg Neutrophils # Man Lymphocytes # (Manual) Monocytes # (Manual) Eosinophils # (Manual) PT INR D-Dimer Heparin Anti-Xa Level POC ABG pH ABG pH POC ABG pCO2 POC ABG pO2 ABG pO2 123.8 H ABG HCO3 ABG O2 Saturation ABG Base Excess -3.0 L ABG Hemoglobin 7.9 L Oxyhemoglobin Sodium 134 L Potassium Chloride 97.9 L Carbon Dioxide BUN 64 H Creatinine 8.1 H Glucose POC Glucose Lactic Acid Calcium 7.2 L Ionized Calcium Phosphorus Magnesium Iron TIBC Ferritin Total Bilirubin Direct Bilirubin AST ALT Alkaline Phosphatase Total Creatine Kinase CK-MB (CK-2) Troponin T C-Reactive Protein Serum Total Protein Total Protein Albumin Ynywl-3-Vhxpmzdwm Vketv-9-Pjvmuwnmv PEP Interpretation Triglycerides LDL Cholesterol Direct HDL Cholesterol Free T4 PTH Intact Urine WBC (Auto) Urine Creatinine Salicylates Acetaminophen Crossmatch 04/04/19 04/04/19 04/04/19 06:07 13:40 18:18 WBC RBC Hgb Hct MCV MCH MCHC RDW Plt Count Lymph % (Auto) [place] % (Auto) Eos % (Auto) Lymph # [place] # Eos # Seg Neutrophils % Seg Neuts % (Manual) Lymphocytes % (Manual) Monocytes % (Manual) Eosinophils % (Manual) Nucleated RBC % Seg Neutrophils # Seg Neutrophils # Man Lymphocytes # (Manual) Monocytes # (Manual) Eosinophils # (Manual) PT INR D-Dimer Heparin Anti-Xa Level POC ABG pH ABG pH POC ABG pCO2 POC ABG pO2 ABG pO2 95.9 H ABG HCO3 ABG O2 Saturation ABG Base Excess -3.0 L ABG Hemoglobin 8.5 L Oxyhemoglobin Sodium Potassium Chloride Carbon Dioxide BUN Creatinine Glucose POC Glucose 107 H 107 H Lactic Acid Calcium Ionized Calcium Phosphorus Magnesium Iron TIBC Ferritin Total Bilirubin Direct Bilirubin AST ALT Alkaline Phosphatase Total Creatine Kinase CK-MB (CK-2) Troponin T C-Reactive Protein Serum Total Protein Total Protein Albumin Gyntl-1-Hiudzeqnz Tgenn-5-Thfshlgsj PEP Interpretation Triglycerides LDL Cholesterol Direct HDL Cholesterol Free T4 PTH Intact Urine WBC (Auto) Urine Creatinine Salicylates Acetaminophen Crossmatch 04/04/19 04/05/19 04/05/19 21:22 04:09 04:09 WBC RBC 2.76 L Hgb 8.4 L Hct 25.4 L MCV MCH MCHC RDW 15.8 H Plt Count 133 L Lymph % (Auto) [place] % (Auto) 9.6 H Eos % (Auto) Lymph # 0.7 L [place] # Eos # Seg Neutrophils % 72.6 H Seg Neuts % (Manual) Lymphocytes % (Manual) Monocytes % (Manual) Eosinophils % (Manual) Nucleated RBC % Seg Neutrophils # Seg Neutrophils # Man Lymphocytes # (Manual) Monocytes # (Manual) Eosinophils # (Manual) PT INR D-Dimer Heparin Anti-Xa Level POC ABG pH ABG pH POC ABG pCO2 47.2 H POC ABG pO2 137 H ABG pO2 ABG HCO3 ABG O2 Saturation ABG Base Excess ABG Hemoglobin Oxyhemoglobin Sodium 136 L Potassium Chloride Carbon Dioxide BUN 46 H Creatinine 6.7 H Glucose POC Glucose Lactic Acid Calcium 7.7 L Ionized Calcium Phosphorus Magnesium Iron TIBC Ferritin Total Bilirubin Direct Bilirubin AST ALT Alkaline Phosphatase Total Creatine Kinase CK-MB (CK-2) Troponin T C-Reactive Protein Serum Total Protein Total Protein Albumin Kcxtv-5-Gktkduclw Awpdk-9-Smyrxbujl PEP Interpretation Triglycerides LDL Cholesterol Direct HDL Cholesterol Free T4 PTH Intact Urine WBC (Auto) Urine Creatinine Salicylates Acetaminophen Crossmatch 04/05/19 04/05/19 04/05/19 05:28 06:14 16:50 WBC RBC Hgb Hct MCV MCH MCHC RDW Plt Count Lymph % (Auto) [place] % (Auto) Eos % (Auto) Lymph # [place] # Eos # Seg Neutrophils % Seg Neuts % (Manual) Lymphocytes % (Manual) Monocytes % (Manual) Eosinophils % (Manual) Nucleated RBC % Seg Neutrophils # Seg Neutrophils # Man Lymphocytes # (Manual) Monocytes # (Manual) Eosinophils # (Manual) PT INR D-Dimer Heparin Anti-Xa Level POC ABG pH ABG pH POC ABG pCO2 POC ABG pO2 67 L ABG pO2 ABG HCO3 ABG O2 Saturation ABG Base Excess ABG Hemoglobin Oxyhemoglobin Sodium Potassium Chloride Carbon Dioxide BUN Creatinine Glucose POC Glucose 108 H Lactic Acid Calcium Ionized Calcium Phosphorus Magnesium Iron TIBC Ferritin Total Bilirubin Direct Bilirubin AST ALT Alkaline Phosphatase Total Creatine Kinase CK-MB (CK-2) Troponin T C-Reactive Protein Serum Total Protein Total Protein Albumin Enamk-5-Supmjsjko Rzjds-0-Noscvdbkb PEP Interpretation Triglycerides LDL Cholesterol Direct HDL Cholesterol Free T4 PTH Intact Urine WBC (Auto) 40.0 H Urine Creatinine Salicylates Acetaminophen Crossmatch 04/05/19 04/06/19 04/06/19 17:22 00:13 04:44 WBC RBC 2.48 L Hgb 7.5 L Hct 22.9 L MCV MCH MCHC RDW 16.0 H Plt Count 107 L Lymph % (Auto) [place] % (Auto) 10.7 H Eos % (Auto) Lymph # 1.0 L [place] # Eos # Seg Neutrophils % Seg Neuts % (Manual) Lymphocytes % (Manual) Monocytes % (Manual) Eosinophils % (Manual) Nucleated RBC % Seg Neutrophils # Seg Neutrophils # Man Lymphocytes # (Manual) Monocytes # (Manual) Eosinophils # (Manual) PT INR D-Dimer Heparin Anti-Xa Level POC ABG pH ABG pH POC ABG pCO2 POC ABG pO2 ABG pO2 ABG HCO3 ABG O2 Saturation ABG Base Excess ABG Hemoglobin Oxyhemoglobin Sodium Potassium Chloride Carbon Dioxide BUN Creatinine Glucose POC Glucose 118 H 138 H Lactic Acid Calcium Ionized Calcium Phosphorus Magnesium Iron TIBC Ferritin Total Bilirubin Direct Bilirubin AST ALT Alkaline Phosphatase Total Creatine Kinase CK-MB (CK-2) Troponin T C-Reactive Protein Serum Total Protein Total Protein Albumin Bmvnt-2-Qlkohpjig Xkmib-9-Rtlmzrhyo PEP Interpretation Triglycerides LDL Cholesterol Direct HDL Cholesterol Free T4 PTH Intact Urine WBC (Auto) Urine Creatinine Salicylates Acetaminophen Crossmatch 04/06/19 04/06/19 04/06/19 04:44 05:20 05:23 WBC RBC Hgb Hct MCV MCH MCHC RDW Plt Count Lymph % (Auto) [place] % (Auto) Eos % (Auto) Lymph # [place] # Eos # Seg Neutrophils % Seg Neuts % (Manual) Lymphocytes % (Manual) Monocytes % (Manual) Eosinophils % (Manual) Nucleated RBC % Seg Neutrophils # Seg Neutrophils # Man Lymphocytes # (Manual) Monocytes # (Manual) Eosinophils # (Manual) PT INR D-Dimer Heparin Anti-Xa Level POC ABG pH ABG pH POC ABG pCO2 POC ABG pO2 ABG pO2 104.0 H ABG HCO3 ABG O2 Saturation ABG Base Excess -2.1 L ABG Hemoglobin 7.3 L Oxyhemoglobin Sodium Potassium Chloride Carbon Dioxide BUN 64 H Creatinine 8.2 H Glucose 103 H POC Glucose 118 H Lactic Acid Calcium 7.3 L Ionized Calcium Phosphorus Magnesium Iron TIBC Ferritin Total Bilirubin Direct Bilirubin AST ALT Alkaline Phosphatase Total Creatine Kinase CK-MB (CK-2) Troponin T C-Reactive Protein Serum Total Protein Total Protein Albumin Phzeu-3-Vkwiymchk Ikzby-2-Dgnxvzwbw PEP Interpretation Triglycerides LDL Cholesterol Direct HDL Cholesterol Free T4 PTH Intact Urine WBC (Auto) Urine Creatinine Salicylates Acetaminophen Crossmatch 04/06/19 04/07/19 04/07/19 12:02 05:40 05:40 WBC RBC 2.59 L Hgb 7.9 L Hct 23.8 L MCV MCH MCHC RDW 15.8 H Plt Count 89 L Lymph % (Auto) [place] % (Auto) 10.3 H Eos % (Auto) Lymph # 1.1 L [place] # Eos # Seg Neutrophils % Seg Neuts % (Manual) Lymphocytes % (Manual) Monocytes % (Manual) Eosinophils % (Manual) Nucleated RBC % Seg Neutrophils # Seg Neutrophils # Man Lymphocytes # (Manual) Monocytes # (Manual) Eosinophils # (Manual) PT INR D-Dimer Heparin Anti-Xa Level POC ABG pH ABG pH POC ABG pCO2 POC ABG pO2 ABG pO2 ABG HCO3 ABG O2 Saturation ABG Base Excess ABG Hemoglobin Oxyhemoglobin Sodium 136 L Potassium 3.5 L Chloride Carbon Dioxide BUN 46 H Creatinine 6.2 H Glucose POC Glucose 108 H Lactic Acid Calcium 7.9 L Ionized Calcium Phosphorus Magnesium Iron TIBC Ferritin Total Bilirubin Direct Bilirubin AST ALT Alkaline Phosphatase Total Creatine Kinase CK-MB (CK-2) Troponin T C-Reactive Protein Serum Total Protein Total Protein Albumin Yhqme-5-Tzcquevtj Higga-4-Ulbnrsbog PEP Interpretation Triglycerides LDL Cholesterol Direct HDL Cholesterol Free T4 PTH Intact Urine WBC (Auto) Urine Creatinine Salicylates Acetaminophen Crossmatch 04/07/19 04/09/19 04/09/19 12:57 04:28 04:28 WBC RBC 2.85 L Hgb 8.7 L Hct 26.2 L MCV MCH MCHC RDW 15.6 H Plt Count Lymph % (Auto) [place] % (Auto) 10.4 H Eos % (Auto) Lymph # 1.0 L [place] # Eos # Seg Neutrophils % 73.3 H Seg Neuts % (Manual) Lymphocytes % (Manual) Monocytes % (Manual) Eosinophils % (Manual) Nucleated RBC % Seg Neutrophils # Seg Neutrophils # Man Lymphocytes # (Manual) Monocytes # (Manual) Eosinophils # (Manual) PT INR D-Dimer Heparin Anti-Xa Level POC ABG pH ABG pH POC ABG pCO2 POC ABG pO2 107 H ABG pO2 ABG HCO3 ABG O2 Saturation ABG Base Excess ABG Hemoglobin Oxyhemoglobin Sodium Potassium 3.5 L Chloride 97.8 L Carbon Dioxide BUN 62 H Creatinine 8.1 H Glucose POC Glucose Lactic Acid Calcium 8.2 L Ionized Calcium Phosphorus 5.10 H Magnesium Iron TIBC Ferritin Total Bilirubin Direct Bilirubin AST ALT Alkaline Phosphatase Total Creatine Kinase CK-MB (CK-2) Troponin T C-Reactive Protein Serum Total Protein Total Protein Albumin Cmqkw-8-Dwncmrsbf Sifba-6-Qqydmuyig PEP Interpretation Triglycerides LDL Cholesterol Direct HDL Cholesterol Free T4 PTH Intact Urine WBC (Auto) Urine Creatinine Salicylates Acetaminophen Crossmatch 04/10/19 04/11/19 04/11/19 18:15 00:25 04:16 WBC 11.5 H RBC 2.91 L Hgb 8.9 L Hct 27.6 L MCV 95 H MCH MCHC RDW 17.5 H Plt Count Lymph % (Auto) [place] % (Auto) Eos % (Auto) Lymph # [place] # Eos # Seg Neutrophils % Seg Neuts % (Manual) 71.0 H Lymphocytes % (Manual) Monocytes % (Manual) 8.0 H Eosinophils % (Manual) Nucleated RBC % Seg Neutrophils # Seg Neutrophils # Man 8.2 H Lymphocytes # (Manual) Monocytes # (Manual) 0.9 H Eosinophils # (Manual) PT INR D-Dimer Heparin Anti-Xa Level POC ABG pH ABG pH POC ABG pCO2 POC ABG pO2 ABG pO2 ABG HCO3 ABG O2 Saturation ABG Base Excess ABG Hemoglobin Oxyhemoglobin Sodium Potassium Chloride Carbon Dioxide BUN Creatinine Glucose POC Glucose 109 H 114 H Lactic Acid Calcium Ionized Calcium Phosphorus Magnesium Iron TIBC Ferritin Total Bilirubin Direct Bilirubin AST ALT Alkaline Phosphatase Total Creatine Kinase CK-MB (CK-2) Troponin T C-Reactive Protein Serum Total Protein Total Protein Albumin Voycn-5-Cugjlydmz Bxazp-6-Ooeqpsyle PEP Interpretation Triglycerides LDL Cholesterol Direct HDL Cholesterol Free T4 PTH Intact Urine WBC (Auto) Urine Creatinine Salicylates Acetaminophen Crossmatch 04/11/19 04/11/19 04/11/19 06:47 09:21 12:15 WBC RBC Hgb Hct MCV MCH MCHC RDW Plt Count Lymph % (Auto) [place] % (Auto) Eos % (Auto) Lymph # [place] # Eos # Seg Neutrophils % Seg Neuts % (Manual) Lymphocytes % (Manual) Monocytes % (Manual) Eosinophils % (Manual) Nucleated RBC % Seg Neutrophils # Seg Neutrophils # Man Lymphocytes # (Manual) Monocytes # (Manual) Eosinophils # (Manual) PT INR D-Dimer Heparin Anti-Xa Level POC ABG pH ABG pH POC ABG pCO2 POC ABG pO2 ABG pO2 ABG HCO3 ABG O2 Saturation ABG Base Excess ABG Hemoglobin Oxyhemoglobin Sodium Potassium 3.5 L Chloride Carbon Dioxide BUN 45 H Creatinine 6.0 H Glucose 113 H POC Glucose 106 H 109 H Lactic Acid Calcium Ionized Calcium Phosphorus Magnesium Iron TIBC Ferritin Total Bilirubin Direct Bilirubin AST ALT Alkaline Phosphatase Total Creatine Kinase CK-MB (CK-2) Troponin T C-Reactive Protein Serum Total Protein Total Protein Albumin Hzsfp-3-Pbtsslmsa Lhhli-0-Qvqllztsc PEP Interpretation Triglycerides LDL Cholesterol Direct HDL Cholesterol Free T4 PTH Intact Urine WBC (Auto) Urine Creatinine Salicylates Acetaminophen Crossmatch 04/11/19 04/12/19 04/12/19 18:42 12:13 23:52 WBC RBC Hgb Hct MCV MCH MCHC RDW Plt Count Lymph % (Auto) [place] % (Auto) Eos % (Auto) Lymph # [place] # Eos # Seg Neutrophils % Seg Neuts % (Manual) Lymphocytes % (Manual) Monocytes % (Manual) Eosinophils % (Manual) Nucleated RBC % Seg Neutrophils # Seg Neutrophils # Man Lymphocytes # (Manual) Monocytes # (Manual) Eosinophils # (Manual) PT INR D-Dimer Heparin Anti-Xa Level POC ABG pH ABG pH POC ABG pCO2 POC ABG pO2 ABG pO2 ABG HCO3 ABG O2 Saturation ABG Base Excess ABG Hemoglobin Oxyhemoglobin Sodium Potassium Chloride Carbon Dioxide BUN Creatinine Glucose POC Glucose 107 H 115 H 124 H Lactic Acid Calcium Ionized Calcium Phosphorus Magnesium Iron TIBC Ferritin Total Bilirubin Direct Bilirubin AST ALT Alkaline Phosphatase Total Creatine Kinase CK-MB (CK-2) Troponin T C-Reactive Protein Serum Total Protein Total Protein Albumin Qcofu-1-Oamgpqxrf Axnxw-0-Dfucaatye PEP Interpretation Triglycerides LDL Cholesterol Direct HDL Cholesterol Free T4 PTH Intact Urine WBC (Auto) Urine Creatinine Salicylates Acetaminophen Crossmatch 04/13/19 04/13/19 04/13/19 05:00 05:00 05:47 WBC 11.7 H RBC 2.97 L Hgb 8.8 L Hct 27.3 L MCV MCH MCHC RDW 16.1 H Plt Count Lymph % (Auto) 9.5 L [place] % (Auto) 9.9 H Eos % (Auto) Lymph # 1.1 L [place] # 1.2 H Eos # Seg Neutrophils % 78.6 H Seg Neuts % (Manual) Lymphocytes % (Manual) Monocytes % (Manual) Eosinophils % (Manual) Nucleated RBC % Seg Neutrophils # 9.2 H Seg Neutrophils # Man Lymphocytes # (Manual) Monocytes # (Manual) Eosinophils # (Manual) PT INR D-Dimer Heparin Anti-Xa Level POC ABG pH ABG pH POC ABG pCO2 POC ABG pO2 ABG pO2 ABG HCO3 ABG O2 Saturation ABG Base Excess ABG Hemoglobin Oxyhemoglobin Sodium Potassium 3.5 L Chloride Carbon Dioxide BUN 42 H Creatinine 4.6 H Glucose 106 H POC Glucose 107 H Lactic Acid Calcium 10.6 H D Ionized Calcium Phosphorus 5.90 H Magnesium Iron TIBC Ferritin Total Bilirubin Direct Bilirubin AST ALT Alkaline Phosphatase Total Creatine Kinase CK-MB (CK-2) Troponin T C-Reactive Protein Serum Total Protein Total Protein 5.8 L Albumin 2.5 L Vmrvb-3-Gnyxreeie Lxjkw-1-Ixaueszda PEP Interpretation Triglycerides LDL Cholesterol Direct HDL Cholesterol Free T4 PTH Intact Urine WBC (Auto) Urine Creatinine Salicylates Acetaminophen Crossmatch 04/13/19 04/14/19 04/14/19 17:32 00:00 03:55 WBC RBC Hgb Hct MCV MCH MCHC RDW Plt Count Lymph % (Auto) [place] % (Auto) Eos % (Auto) Lymph # [place] # Eos # Seg Neutrophils % Seg Neuts % (Manual) Lymphocytes % (Manual) Monocytes % (Manual) Eosinophils % (Manual) Nucleated RBC % Seg Neutrophils # Seg Neutrophils # Man Lymphocytes # (Manual) Monocytes # (Manual) Eosinophils # (Manual) PT INR D-Dimer Heparin Anti-Xa Level POC ABG pH ABG pH POC ABG pCO2 POC ABG pO2 ABG pO2 ABG HCO3 ABG O2 Saturation ABG Base Excess ABG Hemoglobin Oxyhemoglobin Sodium Potassium 3.0 L Chloride Carbon Dioxide BUN 30 H Creatinine 3.1 H Glucose POC Glucose 112 H 120 H Lactic Acid Calcium 10.8 H Ionized Calcium Phosphorus Magnesium Iron TIBC Ferritin Total Bilirubin Direct Bilirubin AST ALT Alkaline Phosphatase Total Creatine Kinase CK-MB (CK-2) Troponin T C-Reactive Protein Serum Total Protein Total Protein Albumin Kqpyf-5-Sqtqisoxp Imsud-1-Jwzyhmnot PEP Interpretation Triglycerides LDL Cholesterol Direct HDL Cholesterol Free T4 PTH Intact Urine WBC (Auto) Urine Creatinine Salicylates Acetaminophen Crossmatch 04/14/19 04/14/19 04/15/19 11:56 23:28 05:11 WBC 13.0 H RBC 2.93 L Hgb 8.6 L Hct 26.5 L MCV MCH MCHC RDW 16.5 H Plt Count Lymph % (Auto) 12.2 L [place] % (Auto) 9.1 H Eos % (Auto) Lymph # [place] # 1.2 H Eos # Seg Neutrophils % 77.6 H Seg Neuts % (Manual) Lymphocytes % (Manual) Monocytes % (Manual) Eosinophils % (Manual) Nucleated RBC % Seg Neutrophils # 10.1 H Seg Neutrophils # Man Lymphocytes # (Manual) Monocytes # (Manual) Eosinophils # (Manual) PT INR D-Dimer Heparin Anti-Xa Level POC ABG pH ABG pH POC ABG pCO2 POC ABG pO2 ABG pO2 ABG HCO3 ABG O2 Saturation ABG Base Excess ABG Hemoglobin Oxyhemoglobin Sodium Potassium Chloride Carbon Dioxide BUN Creatinine Glucose POC Glucose 109 H 112 H Lactic Acid Calcium Ionized Calcium Phosphorus Magnesium Iron TIBC Ferritin Total Bilirubin Direct Bilirubin AST ALT Alkaline Phosphatase Total Creatine Kinase CK-MB (CK-2) Troponin T C-Reactive Protein Serum Total Protein Total Protein Albumin Moxez-8-Xswbybrxt Jergo-0-Mrugytpgd PEP Interpretation Triglycerides LDL Cholesterol Direct HDL Cholesterol Free T4 PTH Intact Urine WBC (Auto) Urine Creatinine Salicylates Acetaminophen Crossmatch 04/15/19 04/15/19 04/15/19 05:11 05:31 18:03 WBC RBC Hgb Hct MCV MCH MCHC RDW Plt Count Lymph % (Auto) [place] % (Auto) Eos % (Auto) Lymph # [place] # Eos # Seg Neutrophils % Seg Neuts % (Manual) Lymphocytes % (Manual) Monocytes % (Manual) Eosinophils % (Manual) Nucleated RBC % Seg Neutrophils # Seg Neutrophils # Man Lymphocytes # (Manual) Monocytes # (Manual) Eosinophils # (Manual) PT INR D-Dimer Heparin Anti-Xa Level POC ABG pH ABG pH POC ABG pCO2 POC ABG pO2 ABG pO2 ABG HCO3 ABG O2 Saturation ABG Base Excess ABG Hemoglobin Oxyhemoglobin Sodium Potassium 3.2 L Chloride Carbon Dioxide BUN 44 H Creatinine 3.6 H Glucose 106 H POC Glucose 110 H 121 H Lactic Acid Calcium 12.0 H Ionized Calcium Phosphorus 5.00 H Magnesium Iron TIBC Ferritin Total Bilirubin Direct Bilirubin AST ALT Alkaline Phosphatase Total Creatine Kinase CK-MB (CK-2) Troponin T C-Reactive Protein Serum Total Protein Total Protein Albumin Pgmjg-6-Dnjtuviyu Jdgsf-9-Twqsvxugf PEP Interpretation Triglycerides LDL Cholesterol Direct HDL Cholesterol Free T4 PTH Intact Urine WBC (Auto) Urine Creatinine Salicylates Acetaminophen Crossmatch 04/16/19 04/16/19 04/17/19 05:07 05:07 04:15 WBC 12.6 H RBC 3.12 L Hgb 9.0 L Hct 28.2 L MCV MCH MCHC RDW 16.6 H Plt Count Lymph % (Auto) 10.3 L [place] % (Auto) 9.8 H Eos % (Auto) Lymph # [place] # 1.2 H Eos # Seg Neutrophils % 78.2 H Seg Neuts % (Manual) Lymphocytes % (Manual) Monocytes % (Manual) Eosinophils % (Manual) Nucleated RBC % Seg Neutrophils # 9.9 H Seg Neutrophils # Man Lymphocytes # (Manual) Monocytes # (Manual) Eosinophils # (Manual) PT INR D-Dimer Heparin Anti-Xa Level POC ABG pH ABG pH POC ABG pCO2 POC ABG pO2 ABG pO2 ABG HCO3 ABG O2 Saturation ABG Base Excess ABG Hemoglobin Oxyhemoglobin Sodium 147 H 150 H Potassium 3.5 L 3.1 L Chloride Carbon Dioxide 32 H BUN 54 H 65 H Creatinine 3.8 H 4.0 H Glucose 102 H 107 H POC Glucose Lactic Acid Calcium 11.7 H 12.0 H Ionized Calcium Phosphorus 5.40 H Magnesium Iron TIBC Ferritin Total Bilirubin Direct Bilirubin AST ALT Alkaline Phosphatase Total Creatine Kinase CK-MB (CK-2) Troponin T C-Reactive Protein 7.10 H Serum Total Protein Total Protein Albumin Faliy-8-Znhhvfplr Shugv-8-Szjbojbta PEP Interpretation Triglycerides LDL Cholesterol Direct HDL Cholesterol Free T4 PTH Intact Urine WBC (Auto) Urine Creatinine Salicylates Acetaminophen Crossmatch 04/17/19 04/17/19 04/17/19 04:15 06:05 12:49 WBC 15.8 H RBC 3.32 L Hgb 9.5 L Hct 29.9 L MCV MCH MCHC RDW 16.9 H Plt Count Lymph % (Auto) 12.6 L [place] % (Auto) 11.1 H Eos % (Auto) Lymph # [place] # 1.7 H Eos # Seg Neutrophils % 74.7 H Seg Neuts % (Manual) Lymphocytes % (Manual) Monocytes % (Manual) Eosinophils % (Manual) Nucleated RBC % Seg Neutrophils # 11.8 H Seg Neutrophils # Man Lymphocytes # (Manual) Monocytes # (Manual) Eosinophils # (Manual) PT INR D-Dimer Heparin Anti-Xa Level POC ABG pH ABG pH POC ABG pCO2 POC ABG pO2 ABG pO2 ABG HCO3 ABG O2 Saturation ABG Base Excess ABG Hemoglobin Oxyhemoglobin Sodium Potassium Chloride Carbon Dioxide BUN Creatinine Glucose POC Glucose 111 H 108 H Lactic Acid Calcium Ionized Calcium Phosphorus Magnesium Iron TIBC Ferritin Total Bilirubin Direct Bilirubin AST ALT Alkaline Phosphatase Total Creatine Kinase CK-MB (CK-2) Troponin T C-Reactive Protein Serum Total Protein Total Protein Albumin [place]-8-Dswemktwz Ucjar-0-Ftxsaljvn PEP Interpretation Triglycerides LDL Cholesterol Direct HDL Cholesterol Free T4 PTH Intact Urine WBC (Auto) Urine Creatinine Salicylates Acetaminophen Crossmatch 04/18/19 04/18/19 04/18/19 00:23 04:41 04:41 WBC 19.4 H RBC 3.03 L Hgb 8.6 L Hct 27.5 L MCV MCH MCHC 31 L RDW 16.9 H Plt Count Lymph % (Auto) [place] % (Auto) Eos % (Auto) Lymph # [place] # Eos # Seg Neutrophils % Seg Neuts % (Manual) Lymphocytes % (Manual) Monocytes % (Manual) Eosinophils % (Manual) Nucleated RBC % Seg Neutrophils # Seg Neutrophils # Man Lymphocytes # (Manual) Monocytes # (Manual) Eosinophils # (Manual) PT INR D-Dimer Heparin Anti-Xa Level POC ABG pH ABG pH POC ABG pCO2 POC ABG pO2 ABG pO2 ABG HCO3 ABG O2 Saturation ABG Base Excess ABG Hemoglobin Oxyhemoglobin Sodium 152 H Potassium 3.0 L Chloride Carbon Dioxide BUN 80 H Creatinine 4.3 H Glucose 103 H POC Glucose 115 H Lactic Acid Calcium 11.4 H Ionized Calcium Phosphorus Magnesium Iron TIBC Ferritin Total Bilirubin Direct Bilirubin AST ALT Alkaline Phosphatase Total Creatine Kinase CK-MB (CK-2) Troponin T C-Reactive Protein Serum Total Protein Total Protein Albumin Xghnl-5-Kshtcgfrv Fomij-5-Zwjkoycbv PEP Interpretation Triglycerides LDL Cholesterol Direct HDL Cholesterol Free T4 PTH Intact Urine WBC (Auto) Urine Creatinine Salicylates Acetaminophen Crossmatch 04/18/19 04/18/19 04/18/19 06:17 12:16 18:10 WBC RBC Hgb Hct MCV MCH MCHC RDW Plt Count Lymph % (Auto) [place] % (Auto) Eos % (Auto) Lymph # [place] # Eos # Seg Neutrophils % Seg Neuts % (Manual) Lymphocytes % (Manual) Monocytes % (Manual) Eosinophils % (Manual) Nucleated RBC % Seg Neutrophils # Seg Neutrophils # Man Lymphocytes # (Manual) Monocytes # (Manual) Eosinophils # (Manual) PT INR D-Dimer Heparin Anti-Xa Level POC ABG pH ABG pH POC ABG pCO2 POC ABG pO2 ABG pO2 ABG HCO3 ABG O2 Saturation ABG Base Excess ABG Hemoglobin Oxyhemoglobin Sodium Potassium Chloride Carbon Dioxide BUN Creatinine Glucose POC Glucose 124 H 119 H 111 H Lactic Acid Calcium Ionized Calcium Phosphorus Magnesium Iron TIBC Ferritin Total Bilirubin Direct Bilirubin AST ALT Alkaline Phosphatase Total Creatine Kinase CK-MB (CK-2) Troponin T C-Reactive Protein Serum Total Protein Total Protein Albumin Icleo-9-Lmgobndgm Djjql-1-Puzzkfezk PEP Interpretation Triglycerides LDL Cholesterol Direct HDL Cholesterol Free T4 PTH Intact Urine WBC (Auto) Urine Creatinine Salicylates Acetaminophen Crossmatch 04/19/19 04/19/19 04/20/19 03:49 05:27 09:09 WBC RBC Hgb Hct MCV MCH MCHC RDW Plt Count Lymph % (Auto) [place] % (Auto) Eos % (Auto) Lymph # [place] # Eos # Seg Neutrophils % Seg Neuts % (Manual) Lymphocytes % (Manual) Monocytes % (Manual) Eosinophils % (Manual) Nucleated RBC % Seg Neutrophils # Seg Neutrophils # Man Lymphocytes # (Manual) Monocytes # (Manual) Eosinophils # (Manual) PT INR D-Dimer Heparin Anti-Xa Level POC ABG pH ABG pH POC ABG pCO2 POC ABG pO2 ABG pO2 ABG HCO3 ABG O2 Saturation ABG Base Excess ABG Hemoglobin Oxyhemoglobin Sodium 147 H 150 H Potassium 3.3 L Chloride 108.9 H Carbon Dioxide BUN 45 H 70 H Creatinine 2.9 H 4.1 H Glucose 105 H POC Glucose 124 H Lactic Acid Calcium 10.6 H 11.6 H Ionized Calcium Phosphorus Magnesium Iron TIBC Ferritin Total Bilirubin Direct Bilirubin AST ALT Alkaline Phosphatase Total Creatine Kinase CK-MB (CK-2) Troponin T C-Reactive Protein Serum Total Protein Total Protein Albumin Rbnle-8-Hwybwzlpu Cfxmy-3-Eqafhaiqm PEP Interpretation Triglycerides LDL Cholesterol Direct HDL Cholesterol Free T4 PTH Intact Urine WBC (Auto) Urine Creatinine Salicylates Acetaminophen Crossmatch 04/20/19 04/20/19 04/21/19 12:29 18:45 01:34 WBC RBC Hgb Hct MCV MCH MCHC RDW Plt Count Lymph % (Auto) [place] % (Auto) Eos % (Auto) Lymph # [place] # Eos # Seg Neutrophils % Seg Neuts % (Manual) Lymphocytes % (Manual) Monocytes % (Manual) Eosinophils % (Manual) Nucleated RBC % Seg Neutrophils # Seg Neutrophils # Man Lymphocytes # (Manual) Monocytes # (Manual) Eosinophils # (Manual) PT INR D-Dimer Heparin Anti-Xa Level POC ABG pH ABG pH POC ABG pCO2 POC ABG pO2 ABG pO2 ABG HCO3 ABG O2 Saturation ABG Base Excess ABG Hemoglobin Oxyhemoglobin Sodium Potassium Chloride Carbon Dioxide BUN 40 H Creatinine 2.6 H Glucose 104 H POC Glucose 131 H 134 H Lactic Acid Calcium 11.0 H Ionized Calcium Phosphorus Magnesium Iron TIBC Ferritin Total Bilirubin Direct Bilirubin AST ALT Alkaline Phosphatase Total Creatine Kinase CK-MB (CK-2) Troponin T C-Reactive Protein Serum Total Protein Total Protein Albumin Vktpk-7-Bnuhrijkc Joapm-9-Apjtayroy PEP Interpretation Triglycerides LDL Cholesterol Direct HDL Cholesterol Free T4 PTH Intact Urine WBC (Auto) Urine Creatinine Salicylates Acetaminophen Crossmatch 04/21/19 04/21/19 04/22/19 04:22 04:22 04:24 WBC 14.2 H 14.3 H RBC 3.02 L 3.57 L Hgb 8.7 L 10.1 L Hct 27.2 L 32.1 L MCV MCH MCHC RDW 16.7 H 17.2 H Plt Count Lymph % (Auto) [place] % (Auto) Eos % (Auto) Lymph # [place] # Eos # Seg Neutrophils % Seg Neuts % (Manual) Lymphocytes % (Manual) Monocytes % (Manual) Eosinophils % (Manual) Nucleated RBC % Seg Neutrophils # Seg Neutrophils # Man Lymphocytes # (Manual) Monocytes # (Manual) Eosinophils # (Manual) PT INR D-Dimer Heparin Anti-Xa Level POC ABG pH ABG pH POC ABG pCO2 POC ABG pO2 ABG pO2 ABG HCO3 ABG O2 Saturation ABG Base Excess ABG Hemoglobin Oxyhemoglobin Sodium Potassium Chloride Carbon Dioxide BUN Creatinine Glucose POC Glucose Lactic Acid Calcium Ionized Calcium Phosphorus Magnesium Iron TIBC Ferritin Total Bilirubin Direct Bilirubin AST ALT Alkaline Phosphatase Total Creatine Kinase CK-MB (CK-2) Troponin T C-Reactive Protein Serum Total Protein 5.7 L Total Protein Albumin 2.3 L Fkahq-0-Hejrowazq 0.5 H Jqnsl-6-Xeaxlumuo 1.0 H PEP Interpretation see below H Triglycerides LDL Cholesterol Direct HDL Cholesterol Free T4 PTH Intact Urine WBC (Auto) Urine Creatinine Salicylates Acetaminophen Crossmatch 04/22/19 04/22/19 04/22/19 04:24 06:37 11:57 WBC RBC Hgb Hct MCV MCH MCHC RDW Plt Count Lymph % (Auto) [place] % (Auto) Eos % (Auto) Lymph # [place] # Eos # Seg Neutrophils % Seg Neuts % (Manual) Lymphocytes % (Manual) Monocytes % (Manual) Eosinophils % (Manual) Nucleated RBC % Seg Neutrophils # Seg Neutrophils # Man Lymphocytes # (Manual) Monocytes # (Manual) Eosinophils # (Manual) PT INR D-Dimer Heparin Anti-Xa Level POC ABG pH ABG pH POC ABG pCO2 POC ABG pO2 ABG pO2 ABG HCO3 ABG O2 Saturation ABG Base Excess ABG Hemoglobin Oxyhemoglobin Sodium Potassium Chloride Carbon Dioxide BUN 54 H Creatinine 3.5 H Glucose POC Glucose 113 H 110 H Lactic Acid Calcium 11.4 H Ionized Calcium Phosphorus Magnesium Iron TIBC Ferritin Total Bilirubin Direct Bilirubin AST ALT Alkaline Phosphatase Total Creatine Kinase CK-MB (CK-2) Troponin T C-Reactive Protein Serum Total Protein Total Protein Albumin Vtvcg-6-Pwjlyxonh Zospv-6-Gvxmotrpg PEP Interpretation Triglycerides LDL Cholesterol Direct HDL Cholesterol Free T4 PTH Intact Urine WBC (Auto) Urine Creatinine Salicylates Acetaminophen Crossmatch 04/22/19 04/23/19 04/23/19 18:33 04:06 04:06 WBC 16.1 H RBC 3.36 L Hgb 9.8 L Hct 30.8 L MCV MCH MCHC RDW 17.7 H Plt Count Lymph % (Auto) 9.9 L [place] % (Auto) Eos % (Auto) Lymph # [place] # Eos # Seg Neutrophils % 84.2 H Seg Neuts % (Manual) Lymphocytes % (Manual) Monocytes % (Manual) Eosinophils % (Manual) Nucleated RBC % Seg Neutrophils # 13.6 H Seg Neutrophils # Man Lymphocytes # (Manual) Monocytes # (Manual) Eosinophils # (Manual) PT INR D-Dimer Heparin Anti-Xa Level POC ABG pH ABG pH POC ABG pCO2 POC ABG pO2 ABG pO2 ABG HCO3 ABG O2 Saturation ABG Base Excess ABG Hemoglobin Oxyhemoglobin Sodium Potassium Chloride Carbon Dioxide BUN 59 H Creatinine 3.8 H Glucose POC Glucose 120 H Lactic Acid Calcium 12.3 H* Ionized Calcium Phosphorus 5.70 H Magnesium Iron TIBC Ferritin Total Bilirubin Direct Bilirubin AST ALT Alkaline Phosphatase Total Creatine Kinase CK-MB (CK-2) Troponin T C-Reactive Protein Serum Total Protein Total Protein Albumin 3.2 L Huuvc-0-Bbsnvzeyt Bzyny-6-Chkmqxkva PEP Interpretation Triglycerides LDL Cholesterol Direct HDL Cholesterol Free T4 PTH Intact Urine WBC (Auto) Urine Creatinine Salicylates Acetaminophen Crossmatch 04/23/19 04/24/19 04/24/19 18:06 04:12 04:12 WBC 18.0 H RBC 3.46 L Hgb 9.8 L Hct 31.2 L MCV MCH MCHC 31 L RDW 17.5 H Plt Count Lymph % (Auto) 11.1 L [place] % (Auto) Eos % (Auto) Lymph # [place] # Eos # Seg Neutrophils % 81.9 H Seg Neuts % (Manual) Lymphocytes % (Manual) Monocytes % (Manual) Eosinophils % (Manual) Nucleated RBC % Seg Neutrophils # 14.7 H Seg Neutrophils # Man Lymphocytes # (Manual) Monocytes # (Manual) Eosinophils # (Manual) PT INR D-Dimer Heparin Anti-Xa Level POC ABG pH ABG pH POC ABG pCO2 POC ABG pO2 ABG pO2 ABG HCO3 ABG O2 Saturation ABG Base Excess ABG Hemoglobin Oxyhemoglobin Sodium Potassium Chloride Carbon Dioxide BUN 56 H Creatinine 3.6 H Glucose POC Glucose 124 H Lactic Acid Calcium 12.6 H* Ionized Calcium Phosphorus Magnesium Iron TIBC Ferritin Total Bilirubin Direct Bilirubin AST ALT Alkaline Phosphatase Total Creatine Kinase CK-MB (CK-2) Troponin T C-Reactive Protein Serum Total Protein Total Protein Albumin 3.2 L Rvadw-8-Qdszeaapi Vbusw-7-Jbdyvlvgk PEP Interpretation Triglycerides LDL Cholesterol Direct HDL Cholesterol Free T4 PTH Intact Urine WBC (Auto) Urine Creatinine Salicylates Acetaminophen Crossmatch 04/24/19 04/24/19 04/25/19 06:21 11:47 05:58 WBC 18.0 H RBC 2.98 L Hgb 8.3 L Hct 26.5 L MCV MCH MCHC 31 L RDW 17.9 H Plt Count Lymph % (Auto) 10.1 L [place] % (Auto) Eos % (Auto) Lymph # [place] # 0.9 H Eos # Seg Neutrophils % 82.8 H Seg Neuts % (Manual) Lymphocytes % (Manual) Monocytes % (Manual) Eosinophils % (Manual) Nucleated RBC % Seg Neutrophils # 15.0 H Seg Neutrophils # Man Lymphocytes # (Manual) Monocytes # (Manual) Eosinophils # (Manual) PT INR D-Dimer Heparin Anti-Xa Level POC ABG pH ABG pH POC ABG pCO2 POC ABG pO2 ABG pO2 ABG HCO3 ABG O2 Saturation ABG Base Excess ABG Hemoglobin Oxyhemoglobin Sodium Potassium Chloride Carbon Dioxide BUN Creatinine Glucose POC Glucose 132 H 106 H Lactic Acid Calcium Ionized Calcium Phosphorus Magnesium Iron TIBC Ferritin Total Bilirubin Direct Bilirubin AST ALT Alkaline Phosphatase Total Creatine Kinase CK-MB (CK-2) Troponin T C-Reactive Protein Serum Total Protein Total Protein Albumin Spyhn-7-Oxioxmfsr Fwrfn-0-Ikenbusye PEP Interpretation Triglycerides LDL Cholesterol Direct HDL Cholesterol Free T4 PTH Intact Urine WBC (Auto) Urine Creatinine Salicylates Acetaminophen Crossmatch 04/25/19 04/26/19 04/26/19 05:58 05:57 06:08 WBC RBC Hgb Hct MCV MCH MCHC RDW Plt Count Lymph % (Auto) [place] % (Auto) Eos % (Auto) Lymph # [place] # Eos # Seg Neutrophils % Seg Neuts % (Manual) Lymphocytes % (Manual) Monocytes % (Manual) Eosinophils % (Manual) Nucleated RBC % Seg Neutrophils # Seg Neutrophils # Man Lymphocytes # (Manual) Monocytes # (Manual) Eosinophils # (Manual) PT INR D-Dimer Heparin Anti-Xa Level POC ABG pH ABG pH POC ABG pCO2 POC ABG pO2 ABG pO2 ABG HCO3 ABG O2 Saturation ABG Base Excess ABG Hemoglobin Oxyhemoglobin Sodium Potassium 3.2 L Chloride Carbon Dioxide BUN 52 H 48 H Creatinine 3.2 H 2.9 H Glucose 108 H 112 H POC Glucose 109 H Lactic Acid Calcium 11.4 H 12.5 H* Ionized Calcium Phosphorus 5.90 H Magnesium Iron TIBC Ferritin Total Bilirubin Direct Bilirubin AST ALT Alkaline Phosphatase Total Creatine Kinase CK-MB (CK-2) Troponin T C-Reactive Protein Serum Total Protein Total Protein Albumin 3.0 L Mdzhc-0-Wbntvafjv Taycg-5-Ckivvjdqy PEP Interpretation Triglycerides LDL Cholesterol Direct HDL Cholesterol Free T4 PTH Intact Urine WBC (Auto) Urine Creatinine Salicylates Acetaminophen Crossmatch 04/26/19 04/26/19 04/27/19 07:22 13:39 05:05 WBC 11.9 H RBC 3.01 L Hgb 8.6 L Hct 26.3 L MCV MCH MCHC RDW 17.6 H Plt Count Lymph % (Auto) 11.9 L [place] % (Auto) Eos % (Auto) Lymph # [place] # Eos # Seg Neutrophils % 78.3 H Seg Neuts % (Manual) Lymphocytes % (Manual) Monocytes % (Manual) Eosinophils % (Manual) Nucleated RBC % Seg Neutrophils # 9.4 H Seg Neutrophils # Man Lymphocytes # (Manual) Monocytes # (Manual) Eosinophils # (Manual) PT INR D-Dimer Heparin Anti-Xa Level POC ABG pH ABG pH POC ABG pCO2 POC ABG pO2 ABG pO2 ABG HCO3 ABG O2 Saturation ABG Base Excess ABG Hemoglobin Oxyhemoglobin Sodium Potassium Chloride Carbon Dioxide BUN 46 H Creatinine 2.8 H Glucose POC Glucose Lactic Acid Calcium > 13.0 H* 12.2 H* Ionized Calcium Phosphorus Magnesium Iron TIBC Ferritin Total Bilirubin Direct Bilirubin AST ALT Alkaline Phosphatase Total Creatine Kinase CK-MB (CK-2) Troponin T C-Reactive Protein Serum Total Protein Total Protein Albumin Srauj-0-Vglhlgylv Qolso-1-Vhenwijns PEP Interpretation Triglycerides LDL Cholesterol Direct HDL Cholesterol Free T4 PTH Intact Urine WBC (Auto) Urine Creatinine Salicylates Acetaminophen Crossmatch 04/27/19 04/28/19 04/29/19 05:05 05:17 14:14 WBC RBC Hgb Hct MCV MCH MCHC RDW Plt Count Lymph % (Auto) [place] % (Auto) Eos % (Auto) Lymph # [place] # Eos # Seg Neutrophils % Seg Neuts % (Manual) Lymphocytes % (Manual) Monocytes % (Manual) Eosinophils % (Manual) Nucleated RBC % Seg Neutrophils # Seg Neutrophils # Man Lymphocytes # (Manual) Monocytes # (Manual) Eosinophils # (Manual) PT INR D-Dimer Heparin Anti-Xa Level POC ABG pH ABG pH POC ABG pCO2 POC ABG pO2 ABG pO2 ABG HCO3 ABG O2 Saturation ABG Base Excess ABG Hemoglobin Oxyhemoglobin Sodium 136 L Potassium 3.2 L 3.4 L Chloride Carbon Dioxide BUN 40 H 34 H 33 H Creatinine 2.5 H 2.0 H 1.9 H Glucose 113 H 107 H POC Glucose Lactic Acid Calcium 12.3 H* 12.1 H* 11.5 H Ionized Calcium Phosphorus Magnesium Iron TIBC Ferritin Total Bilirubin Direct Bilirubin AST ALT Alkaline Phosphatase Total Creatine Kinase CK-MB (CK-2) Troponin T C-Reactive Protein Serum Total Protein Total Protein 6.2 L Albumin 2.8 L Jbzem-7-Zgymjzgxq Sgogc-7-Wdrzavtqh PEP Interpretation Triglycerides LDL Cholesterol Direct HDL Cholesterol Free T4 PTH Intact Urine WBC (Auto) Urine Creatinine Salicylates Acetaminophen Crossmatch 04/29/19 04/29/19 04/30/19 14:14 14:14 06:47 WBC RBC Hgb Hct MCV MCH MCHC RDW Plt Count Lymph % (Auto) [place] % (Auto) Eos % (Auto) Lymph # [place] # Eos # Seg Neutrophils % Seg Neuts % (Manual) Lymphocytes % (Manual) Monocytes % (Manual) Eosinophils % (Manual) Nucleated RBC % Seg Neutrophils # Seg Neutrophils # Man Lymphocytes # (Manual) Monocytes # (Manual) Eosinophils # (Manual) PT INR D-Dimer Heparin Anti-Xa Level POC ABG pH ABG pH POC ABG pCO2 POC ABG pO2 ABG pO2 ABG HCO3 ABG O2 Saturation ABG Base Excess ABG Hemoglobin Oxyhemoglobin Sodium Potassium 3.2 L Chloride Carbon Dioxide 21 L BUN 26 H Creatinine 1.8 H Glucose POC Glucose Lactic Acid Calcium 10.8 H Ionized Calcium 7.2 H* Phosphorus Magnesium Iron TIBC Ferritin Total Bilirubin Direct Bilirubin AST ALT Alkaline Phosphatase Total Creatine Kinase CK-MB (CK-2) Troponin T C-Reactive Protein Serum Total Protein Total Protein Albumin Ahgno-5-Rgfyzzjda Iewwj-0-Bzvdeyqia PEP Interpretation Triglycerides LDL Cholesterol Direct HDL Cholesterol Free T4 PTH Intact 8.83 L Urine WBC (Auto) Urine Creatinine Salicylates Acetaminophen Crossmatch 04/30/19 05/01/19 05/01/19 12:17 06:52 06:52 WBC 15.4 H RBC 3.01 L Hgb 8.4 L Hct 26.2 L MCV MCH MCHC RDW 17.0 H Plt Count Lymph % (Auto) 8.4 L [place] % (Auto) 8.9 H Eos % (Auto) Lymph # [place] # 1.4 H Eos # 0.5 H Seg Neutrophils % 78.7 H Seg Neuts % (Manual) Lymphocytes % (Manual) Monocytes % (Manual) Eosinophils % (Manual) Nucleated RBC % Seg Neutrophils # 12.1 H Seg Neutrophils # Man Lymphocytes # (Manual) Monocytes # (Manual) Eosinophils # (Manual) PT INR D-Dimer Heparin Anti-Xa Level POC ABG pH ABG pH POC ABG pCO2 POC ABG pO2 ABG pO2 ABG HCO3 ABG O2 Saturation ABG Base Excess ABG Hemoglobin Oxyhemoglobin Sodium Potassium 3.0 L Chloride Carbon Dioxide BUN 22 H Creatinine Glucose POC Glucose 106 H Lactic Acid Calcium 11.2 H Ionized Calcium Phosphorus Magnesium Iron TIBC Ferritin Total Bilirubin Direct Bilirubin AST ALT Alkaline Phosphatase Total Creatine Kinase CK-MB (CK-2) Troponin T C-Reactive Protein Serum Total Protein Total Protein Albumin 3.0 L Rurxr-6-Yubkngiqb Amhvn-4-Wuwfinzgc PEP Interpretation Triglycerides LDL Cholesterol Direct HDL Cholesterol Free T4 PTH Intact Urine WBC (Auto) Urine Creatinine Salicylates Acetaminophen Crossmatch 05/01/19 05/01/19 05/02/19 06:52 18:40 05:32 WBC RBC Hgb Hct MCV MCH MCHC RDW Plt Count Lymph % (Auto) [place] % (Auto) Eos % (Auto) Lymph # [place] # Eos # Seg Neutrophils % Seg Neuts % (Manual) Lymphocytes % (Manual) Monocytes % (Manual) Eosinophils % (Manual) Nucleated RBC % Seg Neutrophils # Seg Neutrophils # Man Lymphocytes # (Manual) Monocytes # (Manual) Eosinophils # (Manual) PT INR D-Dimer Heparin Anti-Xa Level POC ABG pH ABG pH POC ABG pCO2 POC ABG pO2 ABG pO2 ABG HCO3 ABG O2 Saturation ABG Base Excess ABG Hemoglobin Oxyhemoglobin Sodium Potassium Chloride Carbon Dioxide BUN Creatinine Glucose POC Glucose 169 H 109 H Lactic Acid Calcium Ionized Calcium Phosphorus Magnesium Iron TIBC Ferritin Total Bilirubin Direct Bilirubin AST ALT Alkaline Phosphatase Total Creatine Kinase CK-MB (CK-2) Troponin T C-Reactive Protein Serum Total Protein 5.7 L Total Protein Albumin 2.5 L Lzvep-5-Kjubjppvr 0.5 H Zpujb-5-Ugjgujruc PEP Interpretation see below H Triglycerides LDL Cholesterol Direct HDL Cholesterol Free T4 PTH Intact Urine WBC (Auto) Urine Creatinine Salicylates Acetaminophen Crossmatch 05/02/19 05/02/19 05/02/19 05:57 05:57 11:43 WBC 14.2 H RBC 2.96 L Hgb 8.3 L Hct 26.0 L MCV MCH MCHC RDW 16.8 H Plt Count Lymph % (Auto) [place] % (Auto) Eos % (Auto) Lymph # [place] # Eos # Seg Neutrophils % Seg Neuts % (Manual) Lymphocytes % (Manual) Monocytes % (Manual) Eosinophils % (Manual) Nucleated RBC % Seg Neutrophils # Seg Neutrophils # Man Lymphocytes # (Manual) Monocytes # (Manual) Eosinophils # (Manual) PT INR D-Dimer Heparin Anti-Xa Level POC ABG pH ABG pH POC ABG pCO2 POC ABG pO2 ABG pO2 ABG HCO3 ABG O2 Saturation ABG Base Excess ABG Hemoglobin Oxyhemoglobin Sodium 136 L Potassium 3.5 L Chloride Carbon Dioxide BUN 21 H Creatinine Glucose POC Glucose 108 H Lactic Acid Calcium 11.1 H Ionized Calcium Phosphorus Magnesium Iron TIBC Ferritin Total Bilirubin Direct Bilirubin AST ALT Alkaline Phosphatase Total Creatine Kinase CK-MB (CK-2) Troponin T C-Reactive Protein Serum Total Protein Total Protein Albumin Dtqxo-9-Yaecdfwos Cldhc-4-Banvhdeae PEP Interpretation Triglycerides LDL Cholesterol Direct HDL Cholesterol Free T4 PTH Intact Urine WBC (Auto) Urine Creatinine Salicylates Acetaminophen Crossmatch 05/03/19 05/03/19 05/04/19 05:37 05:37 06:49 WBC 12.7 H 11.1 H RBC 3.01 L 3.07 L Hgb 8.3 L 8.6 L Hct 26.1 L 26.6 L MCV MCH MCHC RDW 16.9 H 17.3 H Plt Count Lymph % (Auto) [place] % (Auto) 9.0 H Eos % (Auto) 4.9 H Lymph # [place] # 1.0 H Eos # 0.5 H Seg Neutrophils % Seg Neuts % (Manual) Lymphocytes % (Manual) Monocytes % (Manual) Eosinophils % (Manual) Nucleated RBC % Seg Neutrophils # 7.8 H Seg Neutrophils # Man Lymphocytes # (Manual) Monocytes # (Manual) Eosinophils # (Manual) PT INR D-Dimer Heparin Anti-Xa Level POC ABG pH ABG pH POC ABG pCO2 POC ABG pO2 ABG pO2 ABG HCO3 ABG O2 Saturation ABG Base Excess ABG Hemoglobin Oxyhemoglobin Sodium 135 L Potassium 3.3 L Chloride Carbon Dioxide BUN Creatinine Glucose POC Glucose Lactic Acid Calcium 10.9 H Ionized Calcium Phosphorus Magnesium 1.50 L Iron TIBC Ferritin Total Bilirubin Direct Bilirubin AST ALT Alkaline Phosphatase Total Creatine Kinase CK-MB (CK-2) Troponin T C-Reactive Protein Serum Total Protein Total Protein Albumin Xiznd-1-Ixixbdmys Jirmm-3-Yeskhhflq PEP Interpretation Triglycerides LDL Cholesterol Direct HDL Cholesterol Free T4 PTH Intact Urine WBC (Auto) Urine Creatinine Salicylates Acetaminophen Crossmatch 05/04/19 05/04/19 05/04/19 06:49 06:49 11:58 WBC RBC Hgb Hct MCV MCH MCHC RDW Plt Count Lymph % (Auto) [place] % (Auto) Eos % (Auto) Lymph # [place] # Eos # Seg Neutrophils % Seg Neuts % (Manual) Lymphocytes % (Manual) Monocytes % (Manual) Eosinophils % (Manual) Nucleated RBC % Seg Neutrophils # Seg Neutrophils # Man Lymphocytes # (Manual) Monocytes # (Manual) Eosinophils # (Manual) PT 15.5 H INR 1.24 H D-Dimer Heparin Anti-Xa Level POC ABG pH ABG pH POC ABG pCO2 POC ABG pO2 ABG pO2 ABG HCO3 ABG O2 Saturation ABG Base Excess ABG Hemoglobin Oxyhemoglobin Sodium Potassium Chloride Carbon Dioxide 19 L BUN Creatinine Glucose POC Glucose 111 H Lactic Acid Calcium 10.7 H Ionized Calcium Phosphorus Magnesium Iron TIBC Ferritin Total Bilirubin Direct Bilirubin AST ALT Alkaline Phosphatase Total Creatine Kinase CK-MB (CK-2) Troponin T C-Reactive Protein Serum Total Protein Total Protein Albumin Pchbd-1-Sarrfrrue Brrje-5-Uthvchumd PEP Interpretation Triglycerides LDL Cholesterol Direct HDL Cholesterol Free T4 PTH Intact Urine WBC (Auto) Urine Creatinine Salicylates Acetaminophen Crossmatch 05/05/19 05/05/19 05/07/19 06:14 06:14 05:55 WBC 11.5 H 12.0 H RBC 3.08 L 3.33 L Hgb 8.5 L 9.2 L Hct 26.5 L 28.5 L MCV MCH MCHC RDW 17.1 H 17.6 H Plt Count Lymph % (Auto) [place] % (Auto) Eos % (Auto) 8.2 H Lymph # [place] # Eos # 1.0 H Seg Neutrophils % Seg Neuts % (Manual) Lymphocytes % (Manual) Monocytes % (Manual) Eosinophils % (Manual) Nucleated RBC % Seg Neutrophils # 8.2 H Seg Neutrophils # Man Lymphocytes # (Manual) Monocytes # (Manual) Eosinophils # (Manual) PT INR D-Dimer Heparin Anti-Xa Level POC ABG pH ABG pH POC ABG pCO2 POC ABG pO2 ABG pO2 ABG HCO3 ABG O2 Saturation ABG Base Excess ABG Hemoglobin Oxyhemoglobin Sodium 136 L Potassium Chloride Carbon Dioxide 21 L BUN Creatinine Glucose POC Glucose Lactic Acid Calcium 10.3 H Ionized Calcium Phosphorus Magnesium Iron TIBC Ferritin Total Bilirubin Direct Bilirubin AST ALT Alkaline Phosphatase Total Creatine Kinase CK-MB (CK-2) Troponin T C-Reactive Protein Serum Total Protein Total Protein Albumin Riuqg-9-Zhkzujaoe Rdysh-8-Jzyjulvkv PEP Interpretation Triglycerides LDL Cholesterol Direct HDL Cholesterol Free T4 PTH Intact Urine WBC (Auto) Urine Creatinine Salicylates Acetaminophen Crossmatch 05/07/19 05/08/19 05/08/19 05:55 07:27 07:27 WBC 12.5 H RBC 3.50 L Hgb 9.4 L Hct 30.4 L MCV MCH 27 L MCHC 31 L RDW 17.2 H Plt Count Lymph % (Auto) [place] % (Auto) Eos % (Auto) 10.3 H Lymph # [place] # Eos # 1.3 H Seg Neutrophils % Seg Neuts % (Manual) Lymphocytes % (Manual) Monocytes % (Manual) Eosinophils % (Manual) Nucleated RBC % Seg Neutrophils # 8.7 H Seg Neutrophils # Man Lymphocytes # (Manual) Monocytes # (Manual) Eosinophils # (Manual) PT INR D-Dimer Heparin Anti-Xa Level POC ABG pH ABG pH POC ABG pCO2 POC ABG pO2 ABG pO2 ABG HCO3 ABG O2 Saturation ABG Base Excess ABG Hemoglobin Oxyhemoglobin Sodium Potassium 3.5 L Chloride Carbon Dioxide 20 L 20 L BUN Creatinine Glucose POC Glucose Lactic Acid Calcium 10.7 H 10.7 H Ionized Calcium Phosphorus Magnesium Iron TIBC Ferritin Total Bilirubin Direct Bilirubin AST ALT Alkaline Phosphatase Total Creatine Kinase CK-MB (CK-2) Troponin T C-Reactive Protein Serum Total Protein Total Protein Albumin 3.2 L 3.4 L Hixbv-8-Nvrdzzums Ppphp-5-Byeqylmuw PEP Interpretation Triglycerides LDL Cholesterol Direct HDL Cholesterol Free T4 PTH Intact Urine WBC (Auto) Urine Creatinine Salicylates Acetaminophen Crossmatch 05/09/19 05/09/19 05/10/19 05:41 05:41 06:42 WBC 11.7 H RBC 3.27 L Hgb 9.2 L Hct 27.9 L MCV MCH MCHC RDW 17.8 H Plt Count Lymph % (Auto) [place] % (Auto) Eos % (Auto) 14.3 H Lymph # [place] # Eos # 1.7 H Seg Neutrophils % Seg Neuts % (Manual) Lymphocytes % (Manual) Monocytes % (Manual) Eosinophils % (Manual) Nucleated RBC % Seg Neutrophils # Seg Neutrophils # Man Lymphocytes # (Manual) Monocytes # (Manual) Eosinophils # (Manual) PT INR 1.17 H D-Dimer Heparin Anti-Xa Level POC ABG pH ABG pH POC ABG pCO2 POC ABG pO2 ABG pO2 ABG HCO3 ABG O2 Saturation ABG Base Excess ABG Hemoglobin Oxyhemoglobin Sodium 136 L Potassium Chloride Carbon Dioxide 21 L BUN Creatinine Glucose POC Glucose Lactic Acid Calcium 10.6 H Ionized Calcium Phosphorus Magnesium Iron TIBC Ferritin Total Bilirubin Direct Bilirubin AST ALT Alkaline Phosphatase Total Creatine Kinase CK-MB (CK-2) Troponin T C-Reactive Protein Serum Total Protein Total Protein Albumin 3.3 L Ljkxf-7-Fxehfmamp Vhoje-1-Rsadilsok PEP Interpretation Triglycerides LDL Cholesterol Direct HDL Cholesterol Free T4 PTH Intact Urine WBC (Auto) Urine Creatinine Salicylates Acetaminophen Crossmatch 05/10/19 05/11/19 05/13/19 06:42 04:40 08:32 WBC 11.8 H RBC 3.48 L Hgb 9.5 L Hct 30.0 L MCV MCH 27 L MCHC RDW 18.0 H Plt Count Lymph % (Auto) [place] % (Auto) Eos % (Auto) Lymph # [place] # Eos # Seg Neutrophils % Seg Neuts % (Manual) 73.0 H Lymphocytes % (Manual) 11.0 L Monocytes % (Manual) Eosinophils % (Manual) 12.0 H Nucleated RBC % Seg Neutrophils # Seg Neutrophils # Man 8.6 H Lymphocytes # (Manual) Monocytes # (Manual) Eosinophils # (Manual) 1.4 H PT INR D-Dimer Heparin Anti-Xa Level POC ABG pH ABG pH POC ABG pCO2 POC ABG pO2 ABG pO2 ABG HCO3 ABG O2 Saturation ABG Base Excess ABG Hemoglobin Oxyhemoglobin Sodium Potassium Chloride Carbon Dioxide 21 L 20 L BUN Creatinine Glucose POC Glucose Lactic Acid Calcium Ionized Calcium Phosphorus Magnesium Iron TIBC Ferritin Total Bilirubin Direct Bilirubin AST ALT Alkaline Phosphatase Total Creatine Kinase CK-MB (CK-2) Troponin T C-Reactive Protein Serum Total Protein Total Protein Albumin Wbofc-9-Lgnfthidm Pnyuy-8-Qafdyszbl PEP Interpretation Triglycerides LDL Cholesterol Direct HDL Cholesterol Free T4 PTH Intact Urine WBC (Auto) Urine Creatinine Salicylates Acetaminophen Crossmatch 05/13/19 05/14/19 05/19/19 08:32 08:12 06:47 WBC RBC Hgb Hct MCV MCH MCHC RDW Plt Count Lymph % (Auto) [place] % (Auto) Eos % (Auto) Lymph # [place] # Eos # Seg Neutrophils % Seg Neuts % (Manual) Lymphocytes % (Manual) Monocytes % (Manual) Eosinophils % (Manual) Nucleated RBC % Seg Neutrophils # Seg Neutrophils # Man Lymphocytes # (Manual) Monocytes # (Manual) Eosinophils # (Manual) PT INR D-Dimer Heparin Anti-Xa Level POC ABG pH ABG pH POC ABG pCO2 POC ABG pO2 ABG pO2 ABG HCO3 ABG O2 Saturation ABG Base Excess ABG Hemoglobin Oxyhemoglobin Sodium Potassium Chloride Carbon Dioxide 17 L 18 L 18 L BUN Creatinine Glucose 73 L POC Glucose Lactic Acid Calcium Ionized Calcium Phosphorus Magnesium 1.60 L Iron TIBC Ferritin Total Bilirubin Direct Bilirubin AST ALT Alkaline Phosphatase Total Creatine Kinase CK-MB (CK-2) Troponin T C-Reactive Protein Serum Total Protein Total Protein Albumin 3.3 L Oqqbe-0-Hwsbsgmtx Klufb-6-Uuefyuapq PEP Interpretation Triglycerides LDL Cholesterol Direct HDL Cholesterol Free T4 PTH Intact Urine WBC (Auto) Urine Creatinine Salicylates Acetaminophen Crossmatch Allied health notes reviewed: nursing
[2019-05-19] MEDS: MELATONIN 5 MG TAB PO PRN (21:59)
[2019-05-20] MEDS: HYDROcodone/ACETAMINOPHEN 5-325 MG TAB PO PRN ×3 (01:04→18:03)
[2019-05-20] MEDS: GABAPENTIN 300 MG CAP PO SCH ×3 (05:47→22:06)
[2019-05-20 07:13] LABS: Hematocrit 27.9 % (35.5-45.6); Mean Corpuscular HGB Conc 32 % (32-34); Mean Corpuscular Volume 87 fl (84-94); Platelet Count 351 K/mm3 (140-440); Red Blood Count 3.22 M/mm3 (3.65-5.03)
[2019-05-20] MEDS: METOPROLOL SUCCINATE XL 50 MG TAB PO SCH (10:22)
[2019-05-20] MEDS: PANTOPRAZOLE 40 MG TAB PO SCH ×2 (10:23→22:07)
--- NOTE | 2019-05-20 11:51 | Progress Note ---
Assessment and Plan Assessment and plan: Hypophosphatemia; replace with sodium phosphate . monitor electrolytes Peripheral neuropathy. Neurology evaluated patient will need EMG/MCV to rule out axonal versus demyelinating disease. Workup can be done as an outpatient. Bilateral lower extremity DVTs. Patient will be scheduled for placement of IVC filter. 3 months after discharge, the patient will need to be scheduled for IVC filter removal with repeat ultrasound at that time to evaluate the patient's bilateral lower extremity DVTs. - Acute hypoxic respiratory failure. Was intubated, but now extubated. Now on Room air. Continue BiPAP as clinically indicated. - Atrial fibrillation. Resolved. Continue Metoprolol. Cardiology following. No recurrence of AFib or VT noted for several weeks since resolution of multiple metabolic derangements and thus no plans for initiation of systemic AC or AICD implantation at this time. - Abnormal Lexiscan stress with ejection fraction of 45% S/p LHC this AM which showed normal coronaries, normal EF. - Acute blood loss anemia. Patient with GI bleed secondary to peptic ulcer disease. EGD completed per GI. Continue PRBCs as needed. - GI bleed/peptic ulcer disease. Continue PPI. Transfuse PRBCs as needed. - Sepsis/septic shock. Resolved. Continue to monitor off antibiotics - Ischemic hepatitis/shock liver. Resolved. Viral hepatitis panel negative. - Acute kidney injury. Resolved. Patient's last hemodialysis 04/20/19. Continue to monitor BMP. Avoid nephrotoxic agents. - Toxic metabolic encephalopathy. Resolved. - Swelling both upper ext L>R Doppler US : no DVT LUE --Critical illness myopathy, bilateral foot drop Physical therapy and occupational therapy - Hypokalemia. Replete potassium as needed. - Thrombocytopenia. Etiology likely secondary to sepsis. Resolved. - Rhabdomyolysis. CK normalized. Full code status Disposition. Awaiting for arrangements for SNF in [place] History Interval history: Patient seen and examined medical records reviewed Patient complains of lower extremity pain Concerned about his discharge planning Alert awake oriented Vital signs noted Hospitalist Physical - Constitutional Vitals: Temp Pulse Resp BP Pulse Ox 97.4 F L 77 20 123/77 96 05/20/19 05:26 05/20/19 10:22 05/20/19 05:26 05/20/19 10:22 05/20/19 05:26 General appearance: Present: no acute distress, well-nourished - EENT Eyes: Present: PERRL, EOM intact - Neck Neck: Present: supple, normal ROM - Respiratory Respiratory effort: normal Respiratory: bilateral: diminished, negative: rales, rhonchi, wheezing - Cardiovascular Rhythm: regular Heart Sounds: Present: S1 & S2 - Extremities Extremities: no ischemia, No edema - Abdominal General gastrointestinal: soft, non-tender, non-distended, normal bowel sounds - Integumentary Integumentary: Present: clear, warm - Psychiatric Psychiatric: appropriate mood/affect, cooperative - Neurologic Neurologic: other (residual weakness lower extremities) Results - Labs CBC & Chem 7: 05/20/19 06:34 05/19/19 06:47 Labs: Laboratory Last Values WBC 9.1 K/mm3 (4.5-11.0) 05/20/19 06:34 RBC 3.22 M/mm3 (3.65-5.03) L 05/20/19 06:34 Hgb 9.0 gm/dl (11.8-15.2) L 05/20/19 06:34 Hct 27.9 % (35.5-45.6) L 05/20/19 06:34 MCV 87 fl (84-94) 05/20/19 06:34 MCH 28 pg (28-32) 05/20/19 06:34 MCHC 32 % (32-34) 05/20/19 06:34 RDW 18.0 % (13.2-15.2) H 05/20/19 06:34 Plt Count 351 K/mm3 (140-440) 05/20/19 06:34 Lymph % (Auto) 17.9 % (13.4-35.0) 05/09/19 05:41 Power % (Auto) 5.6 % (0.0-7.3) 05/09/19 05:41 Eos % (Auto) Composition Professor 05/20/19 06:34 Baso % (Auto) 0.7 % (0.0-1.8) 05/09/19 05:41 Lymph # 2.1 K/mm3 (1.2-5.4) 05/09/19 05:41 Power # 0.7 K/mm3 (0.0-0.8) 05/09/19 05:41 Eos # 1.7 K/mm3 (0.0-0.4) H 05/09/19 05:41 Baso # 0.1 K/mm3 (0.0-0.1) 05/09/19 05:41 Add Manual Diff Complete 05/13/19 08:32 Total Counted 100 05/13/19 08:32 Seg Neutrophils % 61.5 % (40.0-70.0) 05/09/19 05:41 Seg Neuts % (Manual) 73.0 % (40.0-70.0) H 05/13/19 08:32 Band Neutrophils % 1.0 % 05/13/19 08:32 Lymphocytes % (Manual) 11.0 % (13.4-35.0) L 05/13/19 08:32 Reactive Lymphs % (Man) 0 % 05/13/19 08:32 Monocytes % (Manual) 1.0 % (0.0-7.3) 05/13/19 08:32 Eosinophils % (Manual) 12.0 % (0.0-4.3) H 05/13/19 08:32 Basophils % (Manual) 1.0 % (0.0-1.8) 05/13/19 08:32 Metamyelocytes % 1.0 % 05/13/19 08:32 Myelocytes % 0 % 05/13/19 08:32 Promyelocytes % 0 % 05/13/19 08:32 Blast Cells % 0 % 05/13/19 08:32 Nucleated RBC % Not Reportable 05/13/19 08:32 Seg Neutrophils # 7.2 K/mm3 (1.8-7.7) 05/09/19 05:41 Seg Neutrophils # Man 8.6 K/mm3 (1.8-7.7) H 05/13/19 08:32 Band Neutrophils # 0.1 K/mm3 05/13/19 08:32 Lymphocytes # (Manual) 1.3 K/mm3 (1.2-5.4) 05/13/19 08:32 Abs React Lymphs (Man) 0.0 K/mm3 05/13/19 08:32 Monocytes # (Manual) 0.1 K/mm3 (0.0-0.8) 05/13/19 08:32 Eosinophils # (Manual) 1.4 K/mm3 (0.0-0.4) H 05/13/19 08:32 Basophils # (Manual) 0.1 K/mm3 (0.0-0.1) 05/13/19 08:32 Metamyelocytes # 0.1 K/mm3 05/13/19 08:32 Myelocytes # 0.0 K/mm3 05/13/19 08:32 Promyelocytes # 0.0 K/mm3 05/13/19 08:32 Blast Cells # 0.0 K/mm3 05/13/19 08:32 WBC Morphology Not Reportable 05/13/19 08:32 Hypersegmented Neuts Not Reportable 05/13/19 08:32 Hyposegmented Neuts Not Reportable 05/13/19 08:32 Hypogranular Neuts Not Reportable 05/13/19 08:32 Smudge Cells Not Reportable 05/13/19 08:32 Toxic Granulation Not Reportable 05/13/19 08:32 Toxic Vacuolation Not Reportable 05/13/19 08:32 Dohle Bodies Not Reportable 05/13/19 08:32 Pelger-Huet Anomaly Not Reportable 05/13/19 08:32 Joyce Rods Not Reportable 05/13/19 08:32 Platelet Estimate Consistent w auto 05/13/19 08:32 Clumped Platelets Not Reportable 05/13/19 08:32 Plt Clumps, EDTA Not Reportable 05/13/19 08:32 Large Platelets Few 05/13/19 08:32 Giant Platelets Not Reportable 05/13/19 08:32 Platelet Satelliting Not Reportable 05/13/19 08:32 Plt Morphology Comment Not Reportable 05/13/19 08:32 RBC Morphology Not Reportable 05/13/19 08:32 Dimorphic RBCs Not Reportable 05/13/19 08:32 Polychromasia Not Reportable 05/13/19 08:32 Hypochromasia Not Reportable 05/13/19 08:32 Poikilocytosis Not Reportable 05/13/19 08:32 Anisocytosis Not Reportable 05/13/19 08:32 Microcytosis Not Reportable 05/13/19 08:32 Macrocytosis Not Reportable 05/13/19 08:32 Spherocytes Not Reportable 05/13/19 08:32 Pappenheimer Bodies Not Reportable 05/13/19 08:32 Sickle Cells Not Reportable 05/13/19 08:32 Target Cells Not Reportable 05/13/19 08:32 Tear Drop Cells Few 05/13/19 08:32 Ovalocytes Not Reportable 05/13/19 08:32 Stomatocytes Few 03/26/19 Unknown Helmet Cells Not Reportable 05/13/19 08:32 Shrestha-Lyndon Bodies Not Reportable 05/13/19 08:32 [place] Rings Not Reportable 05/13/19 08:32 Samantha Cells Not Reportable 05/13/19 08:32 Bite Cells Not Reportable 05/13/19 08:32 Crenated Cell Not Reportable 05/13/19 08:32 Elliptocytes Few 05/13/19 08:32 Acanthocytes (Spur) Not Reportable 05/13/19 08:32 Rouleaux Not Reportable 05/13/19 08:32 Hemoglobin C Crystals Not Reportable 05/13/19 08:32 Schistocytes Not Reportable 05/13/19 08:32 Malaria parasites Not Reportable 05/13/19 08:32 Phil Bodies Not Reportable 05/13/19 08:32 Hem Pathologist Commnt No 05/13/19 08:32 PT 14.8 Sec. (12.2-14.9) 05/10/19 06:42 INR 1.17 (0.87-1.13) H 05/10/19 06:42 APTT 27.9 Sec. (24.2-36.6) 05/10/19 06:42 Fibrinogen 226 mg/dl (211-480) 03/28/19 12:00 D-Dimer 4845.98 ng/mlDDU (0-234) H 03/28/19 12:00 Heparin Anti-Xa Level 0.23 U.I./ml (0.3-0.7) L 03/28/19 05:13 POC ABG pH 7.401 (7.35-7.45) 04/07/19 12:57 ABG pH 7.388 pH Units (7.350-7.450) 04/06/19 05:20 POC ABG pCO2 41.5 (35-45) 04/07/19 12:57 ABG pCO2 38.5 mm Hg 04/06/19 05:20 POC ABG pO2 107 (80-105) H 04/07/19 12:57 ABG pO2 104.0 mm Hg (80.0-90.0) H 04/06/19 05:20 POC ABG HCO3 25.7 (22-26 mml/L) 04/07/19 12:57 ABG HCO3 22.6 mmol/L (20.0-26.0) 04/06/19 05:20 POC ABG Total CO2 27 (23-27mmol/L) 04/07/19 12:57 POC ABG O2 Sat 98 04/07/19 12:57 ABG O2 Saturation 97.8 % (95.0-99.0) 04/06/19 05:20 ABG O2 Content 10.0 (0.0-44) 04/06/19 05:20 POC ABG Base Excess 1 ((-2) - (+3)mmol/L) 04/07/19 12:57 ABG Base Excess -2.1 mmol/L (-2.0-3.0) L 04/06/19 05:20 ABG Hemoglobin 7.3 gm/dl (14.0-18.0) L 04/06/19 05:20 ABG Carboxyhemoglobin 1.7 % (0.0-5.0) 04/06/19 05:20 ABG Methemoglobin 0.6 % (0.0-1.5) 04/06/19 05:20 Oxyhemoglobin 95.5 % (95.0-99.0) 04/06/19 05:20 FiO2 30 % 04/07/19 12:57 Sodium 139 mmol/L (137-145) 05/19/19 06:47 Potassium 4.1 mmol/L (3.6-5.0) 05/19/19 06:47 Chloride 106.8 mmol/L (98-107) 05/19/19 06:47 Carbon Dioxide 18 mmol/L (22-30) L 05/19/19 06:47 Anion Gap 18 mmol/L 05/19/19 06:47 BUN 10 mg/dL (9-20) 05/19/19 06:47 Creatinine 0.8 mg/dL (0.8-1.5) 05/19/19 06:47 Estimated GFR > 60 ml/min 05/19/19 06:47 BUN/Creatinine Ratio 13 % 05/19/19 06:47 Glucose 87 mg/dL (75-100) 05/19/19 06:47 POC Glucose 86 (70-105) 05/11/19 02:24 Lactic Acid 1.90 mmol/L (0.7-2.0) 03/21/19 21:31 Calcium 8.8 mg/dL (8.4-10.2) 05/19/19 06:47 Ionized Calcium 7.2 mg/dL (4.8-5.6) H* 04/29/19 14:14 Phosphorus 2.20 mg/dL (2.5-4.5) L 05/20/19 06:34 Magnesium 1.70 mg/dL (1.7-2.3) 05/20/19 06:34 Iron 26 ug/dL (49-181) L 04/02/19 05:03 TIBC 138 mcg/dL (250-450) L 04/02/19 05:03 Ferritin 607.0 ng/mL (13.0-400.0) H 04/02/19 05:03 Total Bilirubin 0.30 mg/dL (0.1-1.2) 05/13/19 08:32 Direct Bilirubin 0.4 mg/dL (0-0.2) H 03/31/19 08:20 Indirect Bilirubin 0.1 mg/dL 03/31/19 08:20 AST 11 units/L (5-40) 05/13/19 08:32 ALT 12 units/L (7-56) 05/13/19 08:32 Alkaline Phosphatase 77 units/L (35-129) 05/13/19 08:32 Total Creatine Kinase 62 units/L (55-170) 04/07/19 05:40 CK-MB (CK-2) 54.3 ng/mL (0.0-4.0) H 03/17/19 07:16 CK-MB (CK-2) Rel Index 0.0 (0-4) 03/17/19 07:16 Troponin T 0.058 ng/mL (0.00-0.029) H 03/17/19 07:16 C-Reactive Protein 7.10 mg/dL (0.00-1.30) H 04/17/19 04:15 Serum Total Protein 5.7 g/dL (6.1-8.1) L 05/01/19 06:52 Total Protein 6.9 g/dL (6.3-8.2) 05/13/19 08:32 Albumin 3.3 g/dL (3.9-5) L 05/13/19 08:32 Albumin/Globulin Ratio 0.9 % 05/13/19 08:32 Jvsqv-8-Xhgclrveu 0.5 g/dL (0.2-0.3) H 05/01/19 06:52 Ivkgk-3-Adolvcsne 0.9 g/dL (0.5-0.9) 05/01/19 06:52 Beta Globulins 0.4 g/dL (0.2-0.5) 05/01/19 06:52 Gamma Globulins 1.0 g/dL (0.8-1.7) 05/01/19 06:52 Abnorm Protein Band 1 see below 05/01/19 06:52 PEP Interpretation see below H 05/01/19 06:52 Triglycerides 309 mg/dL (2-149) H 03/29/19 06:22 Cholesterol 88 mg/dL (50-199) 03/16/19 22:32 LDL Cholesterol Direct 10 mg/dL (50-130) L 03/16/19 22:32 HDL Cholesterol 7 mg/dL (40-59) L 03/16/19 22:32 Cholesterol/HDL Ratio 12.57 % 03/16/19 22:32 Vitamin B12 903.0 pg/mL (211-911) 04/02/19 05:03 25-OH Vitamin D Total See scanned result 04/29/19 14:14 25-Hydroxy Vitamin D2 <4 ng/mL 04/29/19 14:14 1,25 Dihydroxy Vit D2 <8 pg/mL 04/29/19 14:14 25-Hydroxy Vitamin D3 11 ng/mL 04/29/19 14:14 1,25 Dihydroxy Vit D3 <8 pg/mL 04/29/19 14:14 Folate 8.05 ng/mL (7.3-26.0) 04/02/19 05:03 Procalcitonin 25.42 ng/mL (<0.15) 03/27/19 19:21 TSH 2.200 mlU/mL (0.270-4.200) 03/16/19 17:05 Free T4 0.72 ng/dL (0.76-1.46) L 03/16/19 17:05 PTH Intact 8.83 pg/mL (15-65) L 04/29/19 14:14 Urine Color Yellow (Yellow) 04/15/19 22:11 Urine Turbidity Clear (Clear) 04/15/19 22:11 Urine pH 6.0 (5.0-7.0) 04/15/19 22:11 Ur Specific Petros 1.010 (1.003-1.030) 04/15/19 22:11 Urine Protein 30 mg/dl mg/dL (Negative) 04/15/19 22:11 Urine Glucose (UA) Neg mg/dL (Negative) 04/15/19 22:11 Urine Ketones Neg mg/dL (Negative) 04/15/19 22:11 Urine Blood Mod (Negative) 04/15/19 22:11 Urine Nitrite Neg (Negative) 04/15/19 22:11 Urine Bilirubin Neg (Negative) 04/15/19 22:11 Urine Urobilinogen < 2.0 mg/dL (<2.0) 04/15/19 22:11 Ur Leukocyte Esterase Neg (Negative) 04/15/19 22:11 Urine WBC (Auto) 4.0 /HPF (0.0-6.0) 04/15/19 22:11 Urine RBC (Auto) 2.0 /HPF (0.0-6.0) 04/15/19 22:11 U Epithel Cells (Auto) < 1.0 /HPF (0-13.0) 04/15/19 22:11 Amorphous Crystals 1+ 04/05/19 16:50 Urine Mucus Few /HPF 03/17/19 16:05 Urine Sperm 2+ /HPF (SECURITY AND COMPLIANCE ANALYST) 03/17/19 16:05 Urine Eosinophils None seen (None Seen) 03/17/19 16:05 Ur Random Creatinine See scanned result 05/01/19 06:15 U Random Total Protein See scanned result 05/01/19 06:15 Urine Creatinine 106.6 mg/dL (0.1-20.0) H 03/17/19 16:05 Protein/Creatinin Ratio See scanned result 05/01/19 06:15 Urine Sodium 95 mmol/L 03/17/19 16:05 U Abnormal Prot Band 1 See scanned result 05/01/19 06:15 U Abnormal Prot Band 2 See scanned result 05/01/19 06:15 U Abnormal Prot Band 3 See scanned result 05/01/19 06:15 Vancomycin Trough 11.5 ug/mL (5.0-20.0) 03/18/19 13:19 Random Vancomycin 10.8 ug/mL (0-40.0) 04/14/19 03:55 Salicylates < 0.3 mg/dL (2.8-20.0) L 03/16/19 17:05 Urine Opiates Screen Presumptive negative 03/17/19 16:05 Urine Methadone Screen Presumptive negative 03/17/19 16:05 Acetaminophen < 5.0 ug/mL (10.0-30.0) L 03/16/19 17:05 Ur Barbiturates Screen Presumptive negative 03/17/19 16:05 Ur Phencyclidine Scrn Presumptive negative 03/17/19 16:05 Ur Amphetamines Screen Presumptive negative 03/17/19 16:05 U Benzodiazepines Scrn Presumptive positive 03/17/19 16:05 Urine Cocaine Screen Presumptive negative 03/17/19 16:05 U Marijuana (THC) Screen Presumptive negative 03/17/19 16:05 Drugs of Abuse Note Disclamer 03/17/19 16:05 Plasma/Serum Alcohol < 0.01 % (0-0.07) 03/16/19 17:05 Immunofix Electrophor see below 05/01/19 06:52 LANDY Screen Negative (Negative) 04/17/19 04:15 Proteinase 3 (PR3) Ab <1.0 AI (<1.0) 04/21/19 04:22 Myeloperoxidase Ab <1.0 AI (<1.0) 04/21/19 04:22 Glomerular Base Mem IgG See scanned result 04/21/19 04:22 Complement C3 150 mg/dL (82-185) 04/17/19 04:15 Complement C4 37 mg/dL (15-53) 04/17/19 04:15 Hepatitis A IgM Ab Non-reactive (NonReactive) 04/18/19 10:02 Hep Bs Antigen Non-reactive (Negative) 04/18/19 10:02 Hep B Core IgM Ab Non-reactive (NonReactive) 04/18/19 10:02 Hepatitis C Antibody Non-reactive (NonReactive) 04/18/19 10:02 HIV 1&2 Antibody Rapid Non react (Non React) 03/17/19 11:52 HIV P24 Antigen Non react (Non React) 03/17/19 11:52 Influenza A (Rapid) Negative (Negative) 03/17/19 17:00 Influenza B (Rapid) Negative (Negative) 03/17/19 17:00 Group A Strep Rapid Negative (Negative) 03/17/19 17:00 Miscellaneous Test Flexitest 1 03/21/19 12:00 Blood Type A POSITIVE 04/02/19 16:34 Antibody Screen Negative 04/02/19 16:34 Crossmatch See Detail 04/02/19 16:34 Active Medications - Current Medications Current Medications: Generic Name Dose Route Start Last Admin Trade Name Freq PRN Reason Stop Dose Admin Acetaminophen 650 mg 04/02/19 23:26 05/08/19 21:01 Tylenol PO 650 mg Q4H PRN Administration Pain, Mild (1-3),temp>100.5 Acetaminophen/Hydrocodone Bitart 1 each 05/02/19 11:50 05/20/19 10:25 [place] 5/325 PO 1 each Q6H PRN Administration Pain, Moderate (4-6) Al Hydrox/Mg Hydrox/Simethicone 15 ml 04/30/19 15:15 04/30/19 15:53 Alum-Mag Hydrox-Simeth 875-350-49um/5ml PO 15 ml Q4H PRN Administration Indigestion Albuterol 2.5 mg 03/29/19 13:08 Proventil IH Q4HRT PRN Shortness Of Breath Lipase/Protease/Amylase 1 each 04/20/19 13:[address] 10,500 Unit FEEDTUBE PRN PRN For Clogged Feeding Tube Bacitracin 1 applic 04/17/19 08:00 Antibiotic Oint TP Q4H PRN upper lip sore/open Dextrose 50 gm 04/17/19 08:00 D50w (25gm) Vial IV Q1H PRN Hypoglycemia Gabapentin 300 mg 05/17/19 14:40 05/20/19 05:47 Gabapentin PO 300 mg Q8HR PAOLO Administration Hydrophilic Ointment 1 applic 03/16/19 15:50 04/19/19 18:24 Vaseline Lip Therapy TP 1 applic Q2HR PRN Administration Dry Lips Sodium Chloride 500 mls @ 50 mls/hr 05/10/19 08:00 05/11/19 06:55 Nacl 0.9% 500 Ml IV 50 mls/hr DIRECT PAOLO Administration Sodium Phosphate 30 mmol/ 510 mls @ 125 mls/hr 05/20/19 12:30 Sodium Chloride IV 05/20/19 16:34 ONCE ONE Melatonin 5 mg 04/26/19 21:00 05/19/19 21:59 Melatonin PO 5 mg QHS PRN Administration Sleep Metoprolol Succinate 50 mg 05/10/19 10:00 05/20/19 10:22 Metoprolol Xl PO 50 mg QDAY PAOLO Administration Multi-Ingred Cream/Lotion/Oil/Oint 1 applic 03/16/19 15:50 03/19/19 20:10 Artificial Tears Ophth Oint OU 1 applic Q4HR PRN Administration Dry Eye(s) Pantoprazole Sodium 40 mg 05/07/19 22:00 05/20/19 10:23 Protonix PO 40 mg BID PAOLO Administration Simple Syrup 15 ml 04/20/19 13:17 Simple Syrup FEEDTUBE PRN PRN Hypoglycemia Simple Syrup 30 ml 04/20/19 13:29 05/01/19 17:57 Simple Syrup FEEDTUBE 30 ml PRN PRN Administration Hypoglycemia Sodium Bicarbonate 325 mg 04/20/19 13:17 04/27/19 11:03 Sodium Bicarbonate FEEDTUBE 325 mg PRN PRN Administration For Clogged Feeding Tube Nutrition/Malnutrition Assess - Dietary Evaluation Nutrition/Malnutrition Findings: Nutrition Notes Start: 03/17/19 14:22 Freq: Status: Active Protocol: Document 05/18/19 11:01 AIYANA (Rec: 05/18/19 11:46 AIYANA [id number]) Co-Sign 05/18/19 11:01 LP Nutrition Notes Initial or Follow up Reassessment Current Diagnosis Sepsis Other Pertinent Diagnosis GIB, afib Current Diet Regular + Ensure Clear 2 times daily Labs/Tests Reviewed Pertinent Medications Reviewed Height 6 ft Weight 89.2 kg [place] Body Weight (kg) 80.90 BMI 26.6 Weight change and time frame Re-weighed pt. Possible inaccurate bed scale. Subjective/Other Information F/U for ONS and PO intakes. Pt stated his appetite is good. Eating an average 50% of meals due to not liking some meals. Pt stated he hasn't been getting ensure clear because they are out of them, but when he gets them he drinks them. Percent of energy/protein needs met: 57%/48% Burn Absent Trauma Absent Minimum of two criteria No #1 Nutrition Diagnosis Inadequate oral intake As Evidenced by Signs and Symptoms Pt meeting 57%/48% of energy and protein needs. Diagnosis Progress(for reassessment Worsened documentation) Is patient on ventilator? No Is Patient Ambulatory and/or Out of Bed Yes REE-(Cotter-St. Jeor-ambulatory/OOB) [ 2359.500 [id number]] Kcal/Kg value to use for calculation 23 Approximate Energy Requirements Using 2051 kcal/Kg Calculation Used for Recommendations Kcal/kg Additional Notes Protein Needs: 91-114g (0.8-1g /kg 114kg adjBW) Fluid needs 1ml/kcal Calorie recommendation adjusted to meet needs for previously recorded wt. Nutrition Intervention Change Diet Order: Continue current Add Supplement/Snack (indicate name/kcal Ensure Clear BID /protein ) Provides kCal: 480 Provides Protein (gm) 16 Goal #1 Continue to meet at least 75% of kcal/PRO needs via PO and ONS intakes Anticipated Discharge Needs: Regular diet Follow-Up By: 05/23/19 Additional Comments Follow for PO and ONS intakes
[2019-05-20 12:12] LABS: Anisocytosis 1+; Basophils % (Manual) 0 % (0.0-1.8); Total Cells Counted 100
[2019-05-20 12:13] LABS: Large Platelets Few; Platelet Estimate Consistent w Auto
[2019-05-20] MEDS ORDERED: SODIUM PHOSPHATE 30 MMOL in SODIUM CHLORIDE 0.9% 500 ML 500 ML IV ONE (12:30)
--- NOTE | 2019-05-20 21:17 | Progress Note ---
Assessment and Plan Patient awake and oriented. patient counselled on using O2 as needed for shortness of breath.. O2 saturation is 98% on room air. Patient complained coughed up slight sputum with traces of blood. Obtaining chest xray. No acute respiratory distress. Patient afebrile and has leukocytosis. Patients heart rate and blood pressure running good. Patients calcium to day 8.8, in the normal range. Patient has debridement of wound on left hand. Patient has venous doppler studies of legs, reported DVT.Patient has IVC filter placement . . - Patient Problems (1) Acute respiratory failure Current Visit: Yes Status: Resolved Qualifiers: Respiratory failure complication: hypoxia Qualified Code(s): J96.01 - Acute respiratory failure with hypoxia Plan to address problem: O2 2L as needed for shortness of breath or desaturation. Albuterol/atrovent aerosol treatments q 6 hours. Continue Prevacid. Patient has IVC filter placement for DVT.. (2) Altered mental status Current Visit: Yes Status: Acute Qualifiers: Altered mental status type: unspecified Qualified Code(s): R41.82 - Altered mental status, unspecified Plan to address problem: Management as per primary care and neurology. (3) Atrial fibrillation with RVR Current Visit: Yes Status: Acute Plan to address problem: Management as per cardiology. (4) Cardiopulmonary arrest Current Visit: Yes Status: Acute Plan to address problem: Patient resuscitated. Presently resting on room air. O2 saturation 98%.. (5) Acute renal failure Current Visit: Yes Status: Acute Qualifiers: Acute renal failure type: with acute tubular necrosis Qualified Code(s): N17.0 - Acute kidney failure with tubular necrosis Plan to address problem: Management as per nephrology. (6) Aspiration pneumonia Current Visit: Yes Status: Acute Qualifiers: Aspiration pneumonia type: unspecified Plan to address problem: Patient treated with Azactam and zyvox. (7) GI bleed Current Visit: Yes Status: Acute Plan to address problem: Management as per gastroenterology. (8) DVT (deep venous thrombosis) Current Visit: Yes Status: Acute Plan to address problem: Venous doppler studies of legs reported DVT. Patient has IVC filter placement for DVT.. Subjective Date of service: 05/20/19 Principal diagnosis: Septic Shock; Ac. hypoxemic resp failure; Renzo. PNA; Rhabdomyolysis; RUBEN Interval history: Patient awake and oriented. patient counselled on using O2 as needed for shortness of breath.. O2 saturation is 98% on room air. Patient complained coughed up slight sputum with traces of blood. Obtaining chest xray. No acute respiratory distress. Patient afebrile and has leukocytosis. Patients heart rate and blood pressure running good. Patients calcium to day 8.8, in the normal range. Patient has debridement of wound on left hand. Patient has venous doppler studies of legs, reported DVT.Patient has IVC filter placement . Objective Vital Signs - 12hr 05/20/19 05/20/19 05/20/19 10:21 10:22 11:14 Temperature 97.8 F Pulse Rate 77 84 Respiratory 16 Rate Blood Pressure 123/77 123/77 113/80 O2 Sat by Pulse 97 Oximetry 05/20/19 16:32 Temperature 98.5 F Pulse Rate 79 Respiratory 16 Rate Blood Pressure 119/78 O2 Sat by Pulse 97 Oximetry Constitutional: no acute distress, alert Eyes: non-icteric ENT: oropharynx moist, other Neck: supple, no lymphadenopathy, no JVD, other (large neck circumference) Effort: normal Ascultation: Bilateral: diminished breath sounds Percussion: Bilateral: not dull Cardiovascular: regular rate and rhythm, other ( S1,S2) Gastrointestinal: normoactive bowel sounds, soft, non-tender, non-distended, other (obese) Integumentary: normal Extremities: no cyanosis, pink and warm, pulses normal, no ischemia or petechiae Neurologic: normal mental status, non-focal exam (grossly), pupils equal and round, CN II-XII normal, other (very weak, bilateral foot drop) Psychiatric: mood appropriate, affect normal CBC and BMP: 05/20/19 06:34 05/19/19 06:47 ABG, PT/INR, D-dimer: ABG POC ABG pH 7.401 (7.35-7.45) 04/07/19 12:57 ABG pH 7.388 pH Units (7.350-7.450) 04/06/19 05:20 POC ABG pCO2 41.5 (35-45) 04/07/19 12:57 ABG pCO2 38.5 mm Hg 04/06/19 05:20 POC ABG pO2 107 (80-105) H 04/07/19 12:57 ABG pO2 104.0 mm Hg (80.0-90.0) H 04/06/19 05:20 POC ABG HCO3 25.7 (22-26 mml/L) 04/07/19 12:57 POC ABG Total CO2 27 (23-27mmol/L) 04/07/19 12:57 POC ABG O2 Sat 98 04/07/19 12:57 ABG O2 Saturation 97.8 % (95.0-99.0) 04/06/19 05:20 PT/INR, D-dimer PT 14.8 Sec. (12.2-14.9) 05/10/19 06:42 INR 1.17 (0.87-1.13) H 05/10/19 06:42 D-Dimer 4845.98 ng/mlDDU (0-234) H 03/28/19 12:00 Abnormal lab findings: Abnormal Labs 03/16/19 03/16/19 03/16/19 15:32 16:03 16:05 WBC 27.0 H RBC 5.55 H Hgb 15.7 H Hct 47.1 H MCV MCH MCHC RDW Plt Count 75 L Lymph % (Auto) [place] % (Auto) Eos % (Auto) Lymph # [place] # Eos # Seg Neutrophils % Seg Neuts % (Manual) 85.0 H Lymphocytes % (Manual) 2.0 L Monocytes % (Manual) Eosinophils % (Manual) Nucleated RBC % Seg Neutrophils # Seg Neutrophils # Man 23.0 H Lymphocytes # (Manual) 0.5 L Monocytes # (Manual) Eosinophils # (Manual) PT INR D-Dimer Heparin Anti-Xa Level POC ABG pH ABG pH POC ABG pCO2 POC ABG pO2 ABG pO2 ABG HCO3 ABG O2 Saturation ABG Base Excess ABG Hemoglobin Oxyhemoglobin Sodium 127 L Potassium Chloride 87.8 L Carbon Dioxide 17 L BUN 49 H Creatinine 5.8 H Glucose 150 H POC Glucose 118 H Lactic Acid Calcium 6.6 L Ionized Calcium Phosphorus Magnesium 1.10 L Iron TIBC Ferritin Total Bilirubin Direct Bilirubin AST ALT Alkaline Phosphatase Total Creatine Kinase 96260 H CK-MB (CK-2) Troponin T C-Reactive Protein Serum Total Protein Total Protein Albumin Jynqb-0-Rqtmkxrej Gmrxt-8-Dtynrnhwh PEP Interpretation Triglycerides LDL Cholesterol Direct HDL Cholesterol Free T4 PTH Intact Urine WBC (Auto) Urine Creatinine Salicylates Acetaminophen Crossmatch 03/16/19 03/16/19 03/16/19 16:59 17:05 17:05 WBC RBC Hgb Hct MCV MCH MCHC RDW Plt Count Lymph % (Auto) [place] % (Auto) Eos % (Auto) Lymph # [place] # Eos # Seg Neutrophils % Seg Neuts % (Manual) Lymphocytes % (Manual) Monocytes % (Manual) Eosinophils % (Manual) Nucleated RBC % Seg Neutrophils # Seg Neutrophils # Man Lymphocytes # (Manual) Monocytes # (Manual) Eosinophils # (Manual) PT INR D-Dimer Heparin Anti-Xa Level POC ABG pH 7.297 L ABG pH POC ABG pCO2 33.0 L POC ABG pO2 ABG pO2 ABG HCO3 ABG O2 Saturation ABG Base Excess ABG Hemoglobin Oxyhemoglobin Sodium Potassium Chloride Carbon Dioxide BUN Creatinine Glucose POC Glucose Lactic Acid Calcium Ionized Calcium Phosphorus Magnesium Iron TIBC Ferritin Total Bilirubin Direct Bilirubin AST ALT Alkaline Phosphatase Total Creatine Kinase 62702 H CK-MB (CK-2) 83.1 H Troponin T C-Reactive Protein Serum Total Protein Total Protein Albumin Tjwej-7-Qdjyrrrlq Ezdhd-2-Ucwnxmrgo PEP Interpretation Triglycerides LDL Cholesterol Direct HDL Cholesterol Free T4 0.72 L PTH Intact Urine WBC (Auto) Urine Creatinine Salicylates Acetaminophen Crossmatch 03/16/19 03/16/19 03/16/19 17:05 17:05 17:05 WBC RBC Hgb Hct MCV MCH MCHC RDW Plt Count Lymph % (Auto) [place] % (Auto) Eos % (Auto) Lymph # [place] # Eos # Seg Neutrophils % Seg Neuts % (Manual) Lymphocytes % (Manual) Monocytes % (Manual) Eosinophils % (Manual) Nucleated RBC % Seg Neutrophils # Seg Neutrophils # Man Lymphocytes # (Manual) Monocytes # (Manual) Eosinophils # (Manual) PT INR D-Dimer Heparin Anti-Xa Level POC ABG pH ABG pH POC ABG pCO2 POC ABG pO2 ABG pO2 ABG HCO3 ABG O2 Saturation ABG Base Excess ABG Hemoglobin Oxyhemoglobin Sodium Potassium Chloride Carbon Dioxide BUN Creatinine Glucose POC Glucose Lactic Acid 5.10 H* Calcium Ionized Calcium Phosphorus Magnesium Iron TIBC Ferritin Total Bilirubin Direct Bilirubin AST ALT Alkaline Phosphatase Total Creatine Kinase CK-MB (CK-2) Troponin T C-Reactive Protein Serum Total Protein Total Protein Albumin Tpzzx-9-Sxktxbdzs Flwkd-5-Ydvuotcam PEP Interpretation Triglycerides LDL Cholesterol Direct HDL Cholesterol Free T4 PTH Intact Urine WBC (Auto) Urine Creatinine Salicylates < 0.3 L Acetaminophen < 5.0 L Crossmatch 03/16/19 03/16/19 03/16/19 17:05 17:05 20:35 WBC RBC Hgb Hct MCV MCH MCHC RDW Plt Count Lymph % (Auto) [place] % (Auto) Eos % (Auto) Lymph # [place] # Eos # Seg Neutrophils % Seg Neuts % (Manual) Lymphocytes % (Manual) Monocytes % (Manual) Eosinophils % (Manual) Nucleated RBC % Seg Neutrophils # Seg Neutrophils # Man Lymphocytes # (Manual) Monocytes # (Manual) Eosinophils # (Manual) PT 15.9 H INR 1.30 H D-Dimer Heparin Anti-Xa Level POC ABG pH ABG pH POC ABG pCO2 POC ABG pO2 ABG pO2 ABG HCO3 ABG O2 Saturation ABG Base Excess ABG Hemoglobin Oxyhemoglobin Sodium Potassium Chloride Carbon Dioxide BUN Creatinine Glucose POC Glucose Lactic Acid 3.30 H* Calcium Ionized Calcium Phosphorus Magnesium Iron TIBC Ferritin Total Bilirubin 6.20 H Direct Bilirubin 5.9 H AST 800 H ALT 120 H Alkaline Phosphatase Total Creatine Kinase CK-MB (CK-2) Troponin T C-Reactive Protein Serum Total Protein Total Protein 4.4 L Albumin 2.4 L [place]-7-Xqdrdpwmm Qkpja-7-Qcowgbvrg PEP Interpretation Triglycerides LDL Cholesterol Direct HDL Cholesterol Free T4 PTH Intact Urine WBC (Auto) Urine Creatinine Salicylates Acetaminophen Crossmatch 03/16/19 03/16/19 03/16/19 21:45 22:32 Unknown WBC RBC Hgb Hct MCV MCH MCHC RDW Plt Count Lymph % (Auto) [place] % (Auto) Eos % (Auto) Lymph # [place] # Eos # Seg Neutrophils % Seg Neuts % (Manual) Lymphocytes % (Manual) Monocytes % (Manual) Eosinophils % (Manual) Nucleated RBC % Seg Neutrophils # Seg Neutrophils # Man Lymphocytes # (Manual) Monocytes # (Manual) Eosinophils # (Manual) PT INR D-Dimer Heparin Anti-Xa Level POC ABG pH ABG pH POC ABG pCO2 POC ABG pO2 ABG pO2 ABG HCO3 ABG O2 Saturation ABG Base Excess ABG Hemoglobin Oxyhemoglobin Sodium Potassium Chloride Carbon Dioxide BUN Creatinine Glucose POC Glucose Lactic Acid 3.30 H* 3.00 H* Calcium Ionized Calcium Phosphorus Magnesium Iron TIBC Ferritin Total Bilirubin Direct Bilirubin AST ALT Alkaline Phosphatase Total Creatine Kinase CK-MB (CK-2) Troponin T 0.047 H D C-Reactive Protein Serum Total Protein Total Protein Albumin Rtvsl-5-Emjsbkbxs Bmpii-8-Hltcygkpu PEP Interpretation Triglycerides 395 H LDL Cholesterol Direct 10 L HDL Cholesterol 7 L Free T4 PTH Intact Urine WBC (Auto) Urine Creatinine Salicylates Acetaminophen Crossmatch 03/17/19 03/17/19 03/17/19 03:45 03:45 03:45 WBC RBC Hgb Hct MCV MCH MCHC RDW Plt Count Lymph % (Auto) [place] % (Auto) Eos % (Auto) Lymph # [place] # Eos # Seg Neutrophils % Seg Neuts % (Manual) Lymphocytes % (Manual) Monocytes % (Manual) Eosinophils % (Manual) Nucleated RBC % Seg Neutrophils # Seg Neutrophils # Man Lymphocytes # (Manual) Monocytes # (Manual) Eosinophils # (Manual) PT INR D-Dimer Heparin Anti-Xa Level POC ABG pH ABG pH POC ABG pCO2 POC ABG pO2 ABG pO2 ABG HCO3 ABG O2 Saturation ABG Base Excess ABG Hemoglobin Oxyhemoglobin Sodium 131 L Potassium Chloride 88.9 L Carbon Dioxide BUN 53 H Creatinine 7.1 H Glucose POC Glucose Lactic Acid 4.10 H* Calcium 5.4 L* D Ionized Calcium Phosphorus 7.30 H Magnesium 1.60 L Iron TIBC Ferritin Total Bilirubin 5.90 H Direct Bilirubin AST 801 H ALT 109 H Alkaline Phosphatase Total Creatine Kinase 90480 H 88514 H CK-MB (CK-2) 41.5 H Troponin T 0.054 H C-Reactive Protein Serum Total Protein Total Protein 4.5 L Albumin 2.0 L Nbzdz-0-Avyqteitu Iyzuw-6-Qqeoltpxc PEP Interpretation Triglycerides LDL Cholesterol Direct HDL Cholesterol Free T4 PTH Intact Urine WBC (Auto) Urine Creatinine Salicylates Acetaminophen Crossmatch 03/17/19 03/17/19 03/17/19 05:47 07:16 07:16 WBC RBC Hgb Hct MCV MCH MCHC RDW Plt Count Lymph % (Auto) [place] % (Auto) Eos % (Auto) Lymph # [place] # Eos # Seg Neutrophils % Seg Neuts % (Manual) Lymphocytes % (Manual) Monocytes % (Manual) Eosinophils % (Manual) Nucleated RBC % Seg Neutrophils # Seg Neutrophils # Man Lymphocytes # (Manual) Monocytes # (Manual) Eosinophils # (Manual) PT INR D-Dimer Heparin Anti-Xa Level POC ABG pH 7.193 L ABG pH POC ABG pCO2 45.2 H POC ABG pO2 65 L ABG pO2 ABG HCO3 ABG O2 Saturation ABG Base Excess ABG Hemoglobin Oxyhemoglobin Sodium Potassium Chloride Carbon Dioxide BUN Creatinine Glucose POC Glucose Lactic Acid 5.50 H* Calcium Ionized Calcium Phosphorus Magnesium Iron TIBC Ferritin Total Bilirubin Direct Bilirubin AST ALT Alkaline Phosphatase Total Creatine Kinase 30941 H CK-MB (CK-2) 54.3 H Troponin T 0.058 H C-Reactive Protein Serum Total Protein Total Protein Albumin Owebe-4-Hgybgwtql Eeffk-0-Bmbvnaziv PEP Interpretation Triglycerides LDL Cholesterol Direct HDL Cholesterol Free T4 PTH Intact Urine WBC (Auto) Urine Creatinine Salicylates Acetaminophen Crossmatch 03/17/19 03/17/19 03/17/19 11:52 12:51 13:01 WBC RBC Hgb Hct MCV MCH MCHC RDW Plt Count Lymph % (Auto) [place] % (Auto) Eos % (Auto) Lymph # [place] # Eos # Seg Neutrophils % Seg Neuts % (Manual) Lymphocytes % (Manual) Monocytes % (Manual) Eosinophils % (Manual) Nucleated RBC % Seg Neutrophils # Seg Neutrophils # Man Lymphocytes # (Manual) Monocytes # (Manual) Eosinophils # (Manual) PT INR D-Dimer Heparin Anti-Xa Level POC ABG pH 7.154 L ABG pH POC ABG pCO2 34.3 L POC ABG pO2 73 L ABG pO2 ABG HCO3 ABG O2 Saturation ABG Base Excess ABG Hemoglobin Oxyhemoglobin Sodium Potassium Chloride Carbon Dioxide BUN Creatinine Glucose POC Glucose 60 L Lactic Acid 8.20 H* Calcium Ionized Calcium Phosphorus Magnesium Iron TIBC Ferritin Total Bilirubin Direct Bilirubin AST ALT Alkaline Phosphatase Total Creatine Kinase CK-MB (CK-2) Troponin T C-Reactive Protein Serum Total Protein Total Protein Albumin Orzkl-4-Cutwahhpu Imbav-9-Klixnejvy PEP Interpretation Triglycerides LDL Cholesterol Direct HDL Cholesterol Free T4 PTH Intact Urine WBC (Auto) Urine Creatinine Salicylates Acetaminophen Crossmatch 03/17/19 03/17/19 03/17/19 14:37 14:37 14:37 WBC 29.3 H RBC Hgb Hct MCV MCH MCHC RDW 15.8 H Plt Count 45 L Lymph % (Auto) [place] % (Auto) Eos % (Auto) Lymph # [place] # Eos # Seg Neutrophils % Seg Neuts % (Manual) 81.0 H Lymphocytes % (Manual) 1.0 L Monocytes % (Manual) 15.0 H Eosinophils % (Manual) Nucleated RBC % Seg Neutrophils # Seg Neutrophils # Man 23.7 H Lymphocytes # (Manual) 0.3 L Monocytes # (Manual) 4.4 H Eosinophils # (Manual) PT INR D-Dimer Heparin Anti-Xa Level POC ABG pH ABG pH POC ABG pCO2 POC ABG pO2 ABG pO2 ABG HCO3 ABG O2 Saturation ABG Base Excess ABG Hemoglobin Oxyhemoglobin Sodium Potassium Chloride Carbon Dioxide BUN Creatinine Glucose POC Glucose Lactic Acid 4.90 H* Calcium Ionized Calcium Phosphorus Magnesium Iron TIBC Ferritin Total Bilirubin Direct Bilirubin AST ALT Alkaline Phosphatase Total Creatine Kinase CK-MB (CK-2) Troponin T C-Reactive Protein 24.90 H Serum Total Protein Total Protein Albumin Jfyww-1-Kviulwgmv Gfeub-0-Ygclzmcwa PEP Interpretation Triglycerides LDL Cholesterol Direct HDL Cholesterol Free T4 PTH Intact Urine WBC (Auto) Urine Creatinine Salicylates Acetaminophen Crossmatch 03/17/19 03/17/19 03/17/19 16:05 16:05 17:02 WBC RBC Hgb Hct MCV MCH MCHC RDW Plt Count Lymph % (Auto) [place] % (Auto) Eos % (Auto) Lymph # [place] # Eos # Seg Neutrophils % Seg Neuts % (Manual) Lymphocytes % (Manual) Monocytes % (Manual) Eosinophils % (Manual) Nucleated RBC % Seg Neutrophils # Seg Neutrophils # Man Lymphocytes # (Manual) Monocytes # (Manual) Eosinophils # (Manual) PT INR D-Dimer Heparin Anti-Xa Level POC ABG pH 7.183 L ABG pH POC ABG pCO2 POC ABG pO2 65 L ABG pO2 ABG HCO3 ABG O2 Saturation ABG Base Excess ABG Hemoglobin Oxyhemoglobin Sodium Potassium Chloride Carbon Dioxide BUN Creatinine Glucose POC Glucose Lactic Acid Calcium Ionized Calcium Phosphorus Magnesium Iron TIBC Ferritin Total Bilirubin Direct Bilirubin AST ALT Alkaline Phosphatase Total Creatine Kinase CK-MB (CK-2) Troponin T C-Reactive Protein Serum Total Protein Total Protein Albumin Bcljz-8-Kswjzqpxr Gqoty-2-Juxhwczal PEP Interpretation Triglycerides LDL Cholesterol Direct HDL Cholesterol Free T4 PTH Intact Urine WBC (Auto) 30.0 H Urine Creatinine 106.6 H Salicylates Acetaminophen Crossmatch 03/18/19 03/18/19 03/18/19 05:12 05:16 05:53 WBC RBC Hgb Hct MCV MCH MCHC RDW Plt Count Lymph % (Auto) [place] % (Auto) Eos % (Auto) Lymph # [place] # Eos # Seg Neutrophils % Seg Neuts % (Manual) Lymphocytes % (Manual) Monocytes % (Manual) Eosinophils % (Manual) Nucleated RBC % Seg Neutrophils # Seg Neutrophils # Man Lymphocytes # (Manual) Monocytes # (Manual) Eosinophils # (Manual) PT INR D-Dimer Heparin Anti-Xa Level POC ABG pH 7.257 L ABG pH POC ABG pCO2 31.6 L POC ABG pO2 69 L ABG pO2 ABG HCO3 ABG O2 Saturation ABG Base Excess ABG Hemoglobin Oxyhemoglobin Sodium Potassium Chloride Carbon Dioxide BUN Creatinine Glucose POC Glucose 141 H Lactic Acid 5.00 H* Calcium Ionized Calcium Phosphorus Magnesium Iron TIBC Ferritin Total Bilirubin Direct Bilirubin AST ALT Alkaline Phosphatase Total Creatine Kinase CK-MB (CK-2) Troponin T C-Reactive Protein Serum Total Protein Total Protein Albumin Ltpbm-0-Ykwqmvqmv Ytpxj-6-Hdtipjkiu PEP Interpretation Triglycerides LDL Cholesterol Direct HDL Cholesterol Free T4 PTH Intact Urine WBC (Auto) Urine Creatinine Salicylates Acetaminophen Crossmatch 03/18/19 03/18/19 03/18/19 06:57 08:40 08:40 WBC 31.7 H RBC Hgb Hct MCV MCH MCHC RDW 15.5 H Plt Count 35 L Lymph % (Auto) [place] % (Auto) Eos % (Auto) Lymph # [place] # Eos # Seg Neutrophils % Seg Neuts % (Manual) Lymphocytes % (Manual) Monocytes % (Manual) Eosinophils % (Manual) Nucleated RBC % Seg Neutrophils # Seg Neutrophils # Man Lymphocytes # (Manual) Monocytes # (Manual) Eosinophils # (Manual) PT INR D-Dimer Heparin Anti-Xa Level POC ABG pH ABG pH POC ABG pCO2 POC ABG pO2 ABG pO2 ABG HCO3 ABG O2 Saturation ABG Base Excess ABG Hemoglobin Oxyhemoglobin Sodium 132 L Potassium 5.5 H D Chloride 88.5 L Carbon Dioxide 18 L BUN 71 H Creatinine 8.1 H Glucose 205 H POC Glucose Lactic Acid 5.00 H* Calcium 4.1 L* D Ionized Calcium Phosphorus Magnesium 2.40 H Iron TIBC Ferritin Total Bilirubin 7.50 H Direct Bilirubin AST 1088 H ALT 159 H Alkaline Phosphatase 190 H Total Creatine Kinase 250803 H CK-MB (CK-2) Troponin T C-Reactive Protein Serum Total Protein Total Protein 4.7 L Albumin 1.8 L Dwpfk-2-Vftfzxuoj Daklr-9-Mxmvjltbx PEP Interpretation Triglycerides LDL Cholesterol Direct HDL Cholesterol Free T4 PTH Intact Urine WBC (Auto) Urine Creatinine Salicylates Acetaminophen Crossmatch 03/18/19 03/18/19 03/18/19 12:33 12:50 13:19 WBC RBC Hgb Hct MCV MCH MCHC RDW Plt Count Lymph % (Auto) [place] % (Auto) Eos % (Auto) Lymph # [place] # Eos # Seg Neutrophils % Seg Neuts % (Manual) Lymphocytes % (Manual) Monocytes % (Manual) Eosinophils % (Manual) Nucleated RBC % Seg Neutrophils # Seg Neutrophils # Man Lymphocytes # (Manual) Monocytes # (Manual) Eosinophils # (Manual) PT INR D-Dimer Heparin Anti-Xa Level POC ABG pH 7.282 L ABG pH POC ABG pCO2 POC ABG pO2 67 L ABG pO2 ABG HCO3 ABG O2 Saturation ABG Base Excess ABG Hemoglobin Oxyhemoglobin Sodium Potassium Chloride Carbon Dioxide BUN Creatinine Glucose POC Glucose 129 H Lactic Acid 3.30 H* Calcium Ionized Calcium Phosphorus Magnesium Iron TIBC Ferritin Total Bilirubin Direct Bilirubin AST ALT Alkaline Phosphatase Total Creatine Kinase CK-MB (CK-2) Troponin T C-Reactive Protein Serum Total Protein Total Protein Albumin Kxzbf-4-Ktvmznyau Jnbwv-2-Fcyyxiuxk PEP Interpretation Triglycerides LDL Cholesterol Direct HDL Cholesterol Free T4 PTH Intact Urine WBC (Auto) Urine Creatinine Salicylates Acetaminophen Crossmatch 03/18/19 03/18/19 03/18/19 13:19 16:50 18:11 WBC RBC Hgb Hct MCV MCH MCHC RDW Plt Count Lymph % (Auto) [place] % (Auto) Eos % (Auto) Lymph # [place] # Eos # Seg Neutrophils % Seg Neuts % (Manual) Lymphocytes % (Manual) Monocytes % (Manual) Eosinophils % (Manual) Nucleated RBC % Seg Neutrophils # Seg Neutrophils # Man Lymphocytes # (Manual) Monocytes # (Manual) Eosinophils # (Manual) PT INR D-Dimer Heparin Anti-Xa Level POC ABG pH ABG pH POC ABG pCO2 POC ABG pO2 59 L ABG pO2 ABG HCO3 ABG O2 Saturation ABG Base Excess ABG Hemoglobin Oxyhemoglobin Sodium Potassium Chloride Carbon Dioxide BUN Creatinine Glucose POC Glucose 151 H Lactic Acid Calcium 4.2 L* Ionized Calcium Phosphorus Magnesium Iron TIBC Ferritin Total Bilirubin Direct Bilirubin AST ALT Alkaline Phosphatase Total Creatine Kinase 209056 H CK-MB (CK-2) Troponin T C-Reactive Protein Serum Total Protein Total Protein Albumin Baoae-1-Ybaspnsss Emndl-0-Ekgjvrwcw PEP Interpretation Triglycerides LDL Cholesterol Direct HDL Cholesterol Free T4 PTH Intact Urine WBC (Auto) Urine Creatinine Salicylates Acetaminophen Crossmatch 03/18/19 03/18/19 03/19/19 18:20 23:39 01:42 WBC RBC Hgb Hct MCV MCH MCHC RDW Plt Count Lymph % (Auto) [place] % (Auto) Eos % (Auto) Lymph # [place] # Eos # Seg Neutrophils % Seg Neuts % (Manual) Lymphocytes % (Manual) Monocytes % (Manual) Eosinophils % (Manual) Nucleated RBC % Seg Neutrophils # Seg Neutrophils # Man Lymphocytes # (Manual) Monocytes # (Manual) Eosinophils # (Manual) PT INR D-Dimer Heparin Anti-Xa Level POC ABG pH 7.345 L ABG pH 7.285 L POC ABG pCO2 POC ABG pO2 59 L ABG pO2 44.0 L ABG HCO3 ABG O2 Saturation 70.9 L ABG Base Excess -5.7 L ABG Hemoglobin 11.9 L Oxyhemoglobin 69.6 L Sodium Potassium Chloride Carbon Dioxide BUN Creatinine Glucose POC Glucose 152 H Lactic Acid Calcium Ionized Calcium Phosphorus Magnesium Iron TIBC Ferritin Total Bilirubin Direct Bilirubin AST ALT Alkaline Phosphatase Total Creatine Kinase CK-MB (CK-2) Troponin T C-Reactive Protein Serum Total Protein Total Protein Albumin [place]-3-Sbzhjbimu Ggcdz-6-Syakifnrx PEP Interpretation Triglycerides LDL Cholesterol Direct HDL Cholesterol Free T4 PTH Intact Urine WBC (Auto) Urine Creatinine Salicylates Acetaminophen Crossmatch 03/19/19 03/19/19 03/19/19 04:00 04:00 05:35 WBC 36.5 H RBC Hgb Hct MCV MCH MCHC RDW 15.8 H Plt Count 35 L Lymph % (Auto) [place] % (Auto) Eos % (Auto) Lymph # [place] # Eos # Seg Neutrophils % Seg Neuts % (Manual) Lymphocytes % (Manual) Monocytes % (Manual) Eosinophils % (Manual) Nucleated RBC % Seg Neutrophils # Seg Neutrophils # Man Lymphocytes # (Manual) Monocytes # (Manual) Eosinophils # (Manual) PT INR D-Dimer Heparin Anti-Xa Level POC ABG pH ABG pH 7.265 L POC ABG pCO2 POC ABG pO2 ABG pO2 35.4 L* ABG HCO3 ABG O2 Saturation 54.4 L ABG Base Excess -6.7 L ABG Hemoglobin 12.9 L Oxyhemoglobin 53.4 L Sodium 132 L Potassium 5.7 H Chloride 89.8 L Carbon Dioxide 19 L BUN 62 H Creatinine 6.4 H Glucose 151 H POC Glucose Lactic Acid Calcium 5.2 L* D Ionized Calcium Phosphorus Magnesium Iron TIBC Ferritin Total Bilirubin 7.80 H Direct Bilirubin AST 682 H ALT 130 H Alkaline Phosphatase 167 H Total Creatine Kinase CK-MB (CK-2) Troponin T C-Reactive Protein Serum Total Protein Total Protein 4.8 L Albumin 2.3 L Scfee-1-Flfdcrvfg Rulkx-0-Ycinsvrmp PEP Interpretation Triglycerides LDL Cholesterol Direct HDL Cholesterol Free T4 PTH Intact Urine WBC (Auto) Urine Creatinine Salicylates Acetaminophen Crossmatch 03/19/19 03/19/19 03/19/19 05:49 09:16 09:50 WBC RBC Hgb Hct MCV MCH MCHC RDW Plt Count Lymph % (Auto) [place] % (Auto) Eos % (Auto) Lymph # [place] # Eos # Seg Neutrophils % Seg Neuts % (Manual) Lymphocytes % (Manual) Monocytes % (Manual) Eosinophils % (Manual) Nucleated RBC % Seg Neutrophils # Seg Neutrophils # Man Lymphocytes # (Manual) Monocytes # (Manual) Eosinophils # (Manual) PT INR D-Dimer Heparin Anti-Xa Level POC ABG pH 7.222 L ABG pH POC ABG pCO2 56.6 H POC ABG pO2 ABG pO2 ABG HCO3 ABG O2 Saturation ABG Base Excess ABG Hemoglobin Oxyhemoglobin Sodium Potassium Chloride Carbon Dioxide BUN Creatinine Glucose POC Glucose 154 H Lactic Acid 2.70 H* Calcium Ionized Calcium Phosphorus Magnesium Iron TIBC Ferritin Total Bilirubin Direct Bilirubin AST ALT Alkaline Phosphatase Total Creatine Kinase CK-MB (CK-2) Troponin T C-Reactive Protein Serum Total Protein Total Protein Albumin Wavqn-1-Btthgqvbm Gzfeq-6-Hdjkjssxn PEP Interpretation Triglycerides LDL Cholesterol Direct HDL Cholesterol Free T4 PTH Intact Urine WBC (Auto) Urine Creatinine Salicylates Acetaminophen Crossmatch 03/19/19 03/19/19 03/19/19 09:50 11:28 17:58 WBC RBC Hgb Hct MCV MCH MCHC RDW Plt Count Lymph % (Auto) [place] % (Auto) Eos % (Auto) Lymph # [place] # Eos # Seg Neutrophils % Seg Neuts % (Manual) Lymphocytes % (Manual) Monocytes % (Manual) Eosinophils % (Manual) Nucleated RBC % Seg Neutrophils # Seg Neutrophils # Man Lymphocytes # (Manual) Monocytes # (Manual) Eosinophils # (Manual) PT INR D-Dimer Heparin Anti-Xa Level POC ABG pH 7.250 L ABG pH POC ABG pCO2 52.6 H POC ABG pO2 ABG pO2 ABG HCO3 ABG O2 Saturation ABG Base Excess ABG Hemoglobin Oxyhemoglobin Sodium Potassium Chloride Carbon Dioxide BUN Creatinine Glucose POC Glucose 160 H Lactic Acid Calcium Ionized Calcium Phosphorus Magnesium Iron TIBC Ferritin Total Bilirubin Direct Bilirubin AST ALT Alkaline Phosphatase Total Creatine Kinase 08462 H CK-MB (CK-2) Troponin T C-Reactive Protein Serum Total Protein Total Protein Albumin Ukihf-8-Rsmpunfkg Dvfyf-7-Zqcmbaljb PEP Interpretation Triglycerides LDL Cholesterol Direct HDL Cholesterol Free T4 PTH Intact Urine WBC (Auto) Urine Creatinine Salicylates Acetaminophen Crossmatch 03/19/19 03/19/19 03/20/19 19:48 21:03 02:16 WBC RBC Hgb Hct MCV MCH MCHC RDW Plt Count Lymph % (Auto) [place] % (Auto) Eos % (Auto) Lymph # [place] # Eos # Seg Neutrophils % Seg Neuts % (Manual) Lymphocytes % (Manual) Monocytes % (Manual) Eosinophils % (Manual) Nucleated RBC % Seg Neutrophils # Seg Neutrophils # Man Lymphocytes # (Manual) Monocytes # (Manual) Eosinophils # (Manual) PT INR D-Dimer Heparin Anti-Xa Level POC ABG pH 7.279 L ABG pH POC ABG pCO2 50.3 H POC ABG pO2 129 H ABG pO2 ABG HCO3 ABG O2 Saturation ABG Base Excess ABG Hemoglobin Oxyhemoglobin Sodium Potassium Chloride Carbon Dioxide BUN Creatinine Glucose POC Glucose 119 H 119 H Lactic Acid Calcium Ionized Calcium Phosphorus Magnesium Iron TIBC Ferritin Total Bilirubin Direct Bilirubin AST ALT Alkaline Phosphatase Total Creatine Kinase CK-MB (CK-2) Troponin T C-Reactive Protein Serum Total Protein Total Protein Albumin Ausyb-8-Reqpallcz Txtsk-1-Pgawoutrj PEP Interpretation Triglycerides LDL Cholesterol Direct HDL Cholesterol Free T4 PTH Intact Urine WBC (Auto) Urine Creatinine Salicylates Acetaminophen Crossmatch 03/20/19 03/20/19 03/20/19 04:23 05:05 09:30 WBC 36.3 H RBC Hgb Hct MCV MCH MCHC RDW 15.5 H Plt Count 29 L Lymph % (Auto) [place] % (Auto) Eos % (Auto) Lymph # [place] # Eos # Seg Neutrophils % Seg Neuts % (Manual) Lymphocytes % (Manual) Monocytes % (Manual) Eosinophils % (Manual) Nucleated RBC % Seg Neutrophils # Seg Neutrophils # Man Lymphocytes # (Manual) Monocytes # (Manual) Eosinophils # (Manual) PT INR D-Dimer Heparin Anti-Xa Level POC ABG pH ABG pH POC ABG pCO2 POC ABG pO2 280 H ABG pO2 ABG HCO3 ABG O2 Saturation ABG Base Excess ABG Hemoglobin Oxyhemoglobin Sodium Potassium Chloride Carbon Dioxide BUN Creatinine Glucose POC Glucose 115 H Lactic Acid Calcium Ionized Calcium Phosphorus Magnesium Iron TIBC Ferritin Total Bilirubin Direct Bilirubin AST ALT Alkaline Phosphatase Total Creatine Kinase CK-MB (CK-2) Troponin T C-Reactive Protein Serum Total Protein Total Protein Albumin Ejgex-5-Lfzbhthvt Rwtjl-4-Xcfzytpll PEP Interpretation Triglycerides LDL Cholesterol Direct HDL Cholesterol Free T4 PTH Intact Urine WBC (Auto) Urine Creatinine Salicylates Acetaminophen Crossmatch 03/20/19 03/20/19 03/20/19 09:30 09:30 11:34 WBC RBC Hgb Hct MCV MCH MCHC RDW Plt Count Lymph % (Auto) [place] % (Auto) Eos % (Auto) Lymph # [place] # Eos # Seg Neutrophils % Seg Neuts % (Manual) Lymphocytes % (Manual) Monocytes % (Manual) Eosinophils % (Manual) Nucleated RBC % Seg Neutrophils # Seg Neutrophils # Man Lymphocytes # (Manual) Monocytes # (Manual) Eosinophils # (Manual) PT INR D-Dimer Heparin Anti-Xa Level POC ABG pH ABG pH POC ABG pCO2 POC ABG pO2 ABG pO2 ABG HCO3 ABG O2 Saturation ABG Base Excess ABG Hemoglobin Oxyhemoglobin Sodium 131 L Potassium Chloride 92.3 L Carbon Dioxide 20 L BUN 68 H Creatinine 6.1 H Glucose 164 H POC Glucose 141 H Lactic Acid Calcium 5.3 L* Ionized Calcium Phosphorus Magnesium Iron TIBC Ferritin Total Bilirubin 9.50 H Direct Bilirubin AST 381 H ALT 116 H Alkaline Phosphatase 255 H Total Creatine Kinase 63552 H CK-MB (CK-2) Troponin T C-Reactive Protein Serum Total Protein Total Protein 5.1 L Albumin 2.3 L Rlwlu-1-Bgacfpizy Viqpw-5-Yrjbcxvhz PEP Interpretation Triglycerides LDL Cholesterol Direct HDL Cholesterol Free T4 PTH Intact Urine WBC (Auto) Urine Creatinine Salicylates Acetaminophen Crossmatch 03/20/19 03/20/19 03/20/19 14:41 14:45 18:50 WBC RBC Hgb Hct MCV MCH MCHC RDW Plt Count Lymph % (Auto) [place] % (Auto) Eos % (Auto) Lymph # [place] # Eos # Seg Neutrophils % Seg Neuts % (Manual) Lymphocytes % (Manual) Monocytes % (Manual) Eosinophils % (Manual) Nucleated RBC % Seg Neutrophils # Seg Neutrophils # Man Lymphocytes # (Manual) Monocytes # (Manual) Eosinophils # (Manual) PT INR D-Dimer Heparin Anti-Xa Level POC ABG pH ABG pH POC ABG pCO2 POC ABG pO2 ABG pO2 ABG HCO3 ABG O2 Saturation ABG Base Excess ABG Hemoglobin Oxyhemoglobin Sodium Potassium Chloride Carbon Dioxide BUN Creatinine Glucose POC Glucose 117 H Lactic Acid 2.90 H* Calcium Ionized Calcium Phosphorus Magnesium Iron TIBC Ferritin Total Bilirubin Direct Bilirubin AST ALT Alkaline Phosphatase Total Creatine Kinase CK-MB (CK-2) Troponin T C-Reactive Protein 13.30 H Serum Total Protein Total Protein Albumin Yrkzi-7-Xsslvrndw Mopho-0-Qywywxctb PEP Interpretation Triglycerides LDL Cholesterol Direct HDL Cholesterol Free T4 PTH Intact Urine WBC (Auto) Urine Creatinine Salicylates Acetaminophen Crossmatch 03/20/19 03/21/19 03/21/19 21:55 04:26 04:26 WBC 37.8 H RBC Hgb Hct MCV MCH MCHC RDW 15.4 H Plt Count 36 L Lymph % (Auto) [place] % (Auto) Eos % (Auto) Lymph # [place] # Eos # Seg Neutrophils % Seg Neuts % (Manual) 93.0 H Lymphocytes % (Manual) 3.0 L Monocytes % (Manual) Eosinophils % (Manual) Nucleated RBC % 1.0 H Seg Neutrophils # 34.6 H Seg Neutrophils # Man 35.2 H Lymphocytes # (Manual) 1.1 L Monocytes # (Manual) Eosinophils # (Manual) PT INR D-Dimer Heparin Anti-Xa Level POC ABG pH ABG pH POC ABG pCO2 POC ABG pO2 ABG pO2 ABG HCO3 ABG O2 Saturation ABG Base Excess ABG Hemoglobin Oxyhemoglobin Sodium 131 L Potassium Chloride 90.7 L Carbon Dioxide 21 L BUN 69 H Creatinine 5.7 H Glucose 170 H POC Glucose 128 H Lactic Acid Calcium 6.1 L D Ionized Calcium Phosphorus Magnesium Iron TIBC Ferritin Total Bilirubin 9.50 H Direct Bilirubin AST 308 H ALT 124 H Alkaline Phosphatase 327 H Total Creatine Kinase 61203 H CK-MB (CK-2) Troponin T C-Reactive Protein Serum Total Protein Total Protein 5.7 L Albumin 2.6 L Ookuo-9-Lvnleewfu Qzgne-1-Ypisqjpqu PEP Interpretation Triglycerides LDL Cholesterol Direct HDL Cholesterol Free T4 PTH Intact Urine WBC (Auto) Urine Creatinine Salicylates Acetaminophen Crossmatch 03/21/19 03/21/19 03/21/19 05:17 05:39 08:29 WBC RBC Hgb Hct MCV MCH MCHC RDW Plt Count Lymph % (Auto) [place] % (Auto) Eos % (Auto) Lymph # [place] # Eos # Seg Neutrophils % Seg Neuts % (Manual) Lymphocytes % (Manual) Monocytes % (Manual) Eosinophils % (Manual) Nucleated RBC % Seg Neutrophils # Seg Neutrophils # Man Lymphocytes # (Manual) Monocytes # (Manual) Eosinophils # (Manual) PT INR D-Dimer Heparin Anti-Xa Level POC ABG pH ABG pH POC ABG pCO2 POC ABG pO2 209 H ABG pO2 ABG HCO3 ABG O2 Saturation ABG Base Excess ABG Hemoglobin Oxyhemoglobin Sodium Potassium Chloride Carbon Dioxide BUN Creatinine Glucose POC Glucose 145 H Lactic Acid Calcium Ionized Calcium Phosphorus Magnesium Iron TIBC Ferritin Total Bilirubin Direct Bilirubin AST ALT Alkaline Phosphatase Total Creatine Kinase 68800 H CK-MB (CK-2) Troponin T C-Reactive Protein Serum Total Protein Total Protein Albumin Iselg-2-Qlijyqyrm Rhyln-5-Cacozvcnx PEP Interpretation Triglycerides LDL Cholesterol Direct HDL Cholesterol Free T4 PTH Intact Urine WBC (Auto) Urine Creatinine Salicylates Acetaminophen Crossmatch 03/21/19 03/21/19 03/21/19 08:29 11:43 12:00 WBC RBC Hgb Hct MCV MCH MCHC RDW Plt Count Lymph % (Auto) [place] % (Auto) Eos % (Auto) Lymph # [place] # Eos # Seg Neutrophils % Seg Neuts % (Manual) Lymphocytes % (Manual) Monocytes % (Manual) Eosinophils % (Manual) Nucleated RBC % Seg Neutrophils # Seg Neutrophils # Man Lymphocytes # (Manual) Monocytes # (Manual) Eosinophils # (Manual) PT INR D-Dimer Heparin Anti-Xa Level POC ABG pH ABG pH POC ABG pCO2 POC ABG pO2 ABG pO2 ABG HCO3 ABG O2 Saturation ABG Base Excess ABG Hemoglobin Oxyhemoglobin Sodium Potassium Chloride Carbon Dioxide BUN Creatinine Glucose POC Glucose 123 H Lactic Acid 2.60 H* 2.20 H* Calcium Ionized Calcium Phosphorus Magnesium Iron TIBC Ferritin Total Bilirubin Direct Bilirubin AST ALT Alkaline Phosphatase Total Creatine Kinase CK-MB (CK-2) Troponin T C-Reactive Protein Serum Total Protein Total Protein Albumin Wtwrx-2-Wtinzbprf Oeihr-7-Hulqdiyme PEP Interpretation Triglycerides LDL Cholesterol Direct HDL Cholesterol Free T4 PTH Intact Urine WBC (Auto) Urine Creatinine Salicylates Acetaminophen Crossmatch 03/21/19 03/21/19 03/21/19 14:11 18:28 19:32 WBC RBC Hgb Hct MCV MCH MCHC RDW Plt Count Lymph % (Auto) [place] % (Auto) Eos % (Auto) Lymph # [place] # Eos # Seg Neutrophils % Seg Neuts % (Manual) Lymphocytes % (Manual) Monocytes % (Manual) Eosinophils % (Manual) Nucleated RBC % Seg Neutrophils # Seg Neutrophils # Man Lymphocytes # (Manual) Monocytes # (Manual) Eosinophils # (Manual) PT INR D-Dimer Heparin Anti-Xa Level POC ABG pH 7.293 L ABG pH POC ABG pCO2 POC ABG pO2 ABG pO2 ABG HCO3 ABG O2 Saturation ABG Base Excess ABG Hemoglobin Oxyhemoglobin Sodium Potassium Chloride Carbon Dioxide BUN Creatinine Glucose POC Glucose 153 H Lactic Acid 2.10 H* Calcium Ionized Calcium Phosphorus Magnesium Iron TIBC Ferritin Total Bilirubin Direct Bilirubin AST ALT Alkaline Phosphatase Total Creatine Kinase CK-MB (CK-2) Troponin T C-Reactive Protein Serum Total Protein Total Protein Albumin Fatru-0-Ygngrsjvq Agvkm-5-Ngotexheb PEP Interpretation Triglycerides LDL Cholesterol Direct HDL Cholesterol Free T4 PTH Intact Urine WBC (Auto) Urine Creatinine Salicylates Acetaminophen Crossmatch 03/21/19 03/22/19 03/22/19 23:38 05:08 05:51 WBC RBC Hgb Hct MCV MCH MCHC RDW Plt Count Lymph % (Auto) [place] % (Auto) Eos % (Auto) Lymph # [place] # Eos # Seg Neutrophils % Seg Neuts % (Manual) Lymphocytes % (Manual) Monocytes % (Manual) Eosinophils % (Manual) Nucleated RBC % Seg Neutrophils # Seg Neutrophils # Man Lymphocytes # (Manual) Monocytes # (Manual) Eosinophils # (Manual) PT INR D-Dimer Heparin Anti-Xa Level POC ABG pH 7.283 L ABG pH POC ABG pCO2 POC ABG pO2 53 L ABG pO2 ABG HCO3 ABG O2 Saturation ABG Base Excess ABG Hemoglobin Oxyhemoglobin Sodium Potassium Chloride Carbon Dioxide BUN Creatinine Glucose POC Glucose 149 H 131 H Lactic Acid Calcium Ionized Calcium Phosphorus Magnesium Iron TIBC Ferritin Total Bilirubin Direct Bilirubin AST ALT Alkaline Phosphatase Total Creatine Kinase CK-MB (CK-2) Troponin T C-Reactive Protein Serum Total Protein Total Protein Albumin Isruc-9-Sjimpuecb Btdva-9-Dbguautcq PEP Interpretation Triglycerides LDL Cholesterol Direct HDL Cholesterol Free T4 PTH Intact Urine WBC (Auto) Urine Creatinine Salicylates Acetaminophen Crossmatch 03/22/19 03/22/19 03/22/19 08:00 08:00 18:19 WBC 36.7 H RBC Hgb 11.0 L Hct 33.5 L MCV MCH MCHC RDW 15.5 H Plt Count 43 L Lymph % (Auto) [place] % (Auto) Eos % (Auto) Lymph # [place] # Eos # Seg Neutrophils % Seg Neuts % (Manual) 87.0 H Lymphocytes % (Manual) 7.0 L Monocytes % (Manual) Eosinophils % (Manual) Nucleated RBC % Seg Neutrophils # Seg Neutrophils # Man 31.9 H Lymphocytes # (Manual) Monocytes # (Manual) Eosinophils # (Manual) PT INR D-Dimer Heparin Anti-Xa Level POC ABG pH ABG pH POC ABG pCO2 46.4 H POC ABG pO2 108 H ABG pO2 ABG HCO3 ABG O2 Saturation ABG Base Excess ABG Hemoglobin Oxyhemoglobin Sodium 132 L Potassium 5.6 H Chloride 89.6 L Carbon Dioxide 20 L BUN 101 H Creatinine 7.4 H Glucose 124 H POC Glucose Lactic Acid Calcium 5.2 L* Ionized Calcium Phosphorus Magnesium Iron TIBC Ferritin Total Bilirubin 2.80 H Direct Bilirubin AST 119 H ALT 86 H Alkaline Phosphatase 245 H Total Creatine Kinase CK-MB (CK-2) Troponin T C-Reactive Protein Serum Total Protein Total Protein 5.6 L Albumin 2.5 L Mnohw-4-Pnwhzcixr Eqzdl-0-Tizagrxbi PEP Interpretation Triglycerides LDL Cholesterol Direct HDL Cholesterol Free T4 PTH Intact Urine WBC (Auto) Urine Creatinine Salicylates Acetaminophen Crossmatch 03/22/19 03/23/19 03/23/19 20:37 04:49 05:28 WBC 35.9 H RBC Hgb 10.8 L Hct 33.2 L MCV MCH MCHC RDW 15.5 H Plt Count 49 L Lymph % (Auto) [place] % (Auto) Eos % (Auto) Lymph # [place] # Eos # Seg Neutrophils % Seg Neuts % (Manual) 81.0 H Lymphocytes % (Manual) 3.5 L Monocytes % (Manual) Eosinophils % (Manual) Nucleated RBC % Seg Neutrophils # Seg Neutrophils # Man 29.1 H Lymphocytes # (Manual) Monocytes # (Manual) 1.4 H Eosinophils # (Manual) PT INR D-Dimer Heparin Anti-Xa Level POC ABG pH 7.296 L ABG pH POC ABG pCO2 46.2 H POC ABG pO2 ABG pO2 ABG HCO3 ABG O2 Saturation ABG Base Excess ABG Hemoglobin Oxyhemoglobin Sodium 129 L Potassium 5.2 H Chloride 91.1 L Carbon Dioxide BUN 91 H Creatinine 6.6 H Glucose 190 H POC Glucose Lactic Acid Calcium 5.3 L* Ionized Calcium Phosphorus Magnesium Iron TIBC Ferritin Total Bilirubin 1.80 H Direct Bilirubin AST 80 H ALT 62 H Alkaline Phosphatase 209 H Total Creatine Kinase 9758 H CK-MB (CK-2) Troponin T C-Reactive Protein Serum Total Protein Total Protein 5.2 L Albumin 2.2 L Ldxlp-1-Tjrxpvfec Dltxn-0-Zcdejwpua PEP Interpretation Triglycerides LDL Cholesterol Direct HDL Cholesterol Free T4 PTH Intact Urine WBC (Auto) Urine Creatinine Salicylates Acetaminophen Crossmatch 03/23/19 03/23/19 03/23/19 05:28 05:31 11:33 WBC 29.7 H RBC 3.59 L Hgb 10.1 L Hct 31.1 L MCV MCH MCHC RDW 15.4 H Plt Count 47 L Lymph % (Auto) [place] % (Auto) Eos % (Auto) Lymph # [place] # Eos # Seg Neutrophils % Seg Neuts % (Manual) 89.0 H Lymphocytes % (Manual) 6.0 L Monocytes % (Manual) Eosinophils % (Manual) Nucleated RBC % 1.0 H Seg Neutrophils # Seg Neutrophils # Man 26.4 H Lymphocytes # (Manual) Monocytes # (Manual) Eosinophils # (Manual) PT INR D-Dimer Heparin Anti-Xa Level POC ABG pH ABG pH POC ABG pCO2 POC ABG pO2 ABG pO2 ABG HCO3 ABG O2 Saturation ABG Base Excess ABG Hemoglobin Oxyhemoglobin Sodium Potassium Chloride Carbon Dioxide BUN Creatinine Glucose POC Glucose 122 H 113 H Lactic Acid Calcium Ionized Calcium Phosphorus Magnesium Iron TIBC Ferritin Total Bilirubin Direct Bilirubin AST ALT Alkaline Phosphatase Total Creatine Kinase CK-MB (CK-2) Troponin T C-Reactive Protein Serum Total Protein Total Protein Albumin Eylwx-2-Urufggnnu Ydiym-4-Yuplacilu PEP Interpretation Triglycerides LDL Cholesterol Direct HDL Cholesterol Free T4 PTH Intact Urine WBC (Auto) Urine Creatinine Salicylates Acetaminophen Crossmatch 03/23/19 03/24/19 03/24/19 17:47 00:00 04:50 WBC 35.0 H RBC Hgb 10.4 L Hct 32.4 L MCV MCH MCHC RDW Plt Count 60 L Lymph % (Auto) [place] % (Auto) Eos % (Auto) Lymph # [place] # Eos # Seg Neutrophils % Seg Neuts % (Manual) 93.0 H Lymphocytes % (Manual) 5.0 L Monocytes % (Manual) Eosinophils % (Manual) Nucleated RBC % 7.0 H Seg Neutrophils # Seg Neutrophils # Man 32.6 H Lymphocytes # (Manual) Monocytes # (Manual) Eosinophils # (Manual) PT INR D-Dimer Heparin Anti-Xa Level POC ABG pH ABG pH POC ABG pCO2 POC ABG pO2 ABG pO2 ABG HCO3 ABG O2 Saturation ABG Base Excess ABG Hemoglobin Oxyhemoglobin Sodium Potassium Chloride Carbon Dioxide BUN Creatinine Glucose POC Glucose 111 H 108 H Lactic Acid Calcium Ionized Calcium Phosphorus Magnesium Iron TIBC Ferritin Total Bilirubin Direct Bilirubin AST ALT Alkaline Phosphatase Total Creatine Kinase CK-MB (CK-2) Troponin T C-Reactive Protein Serum Total Protein Total Protein Albumin Dbzfy-4-Nwlfnmnfq Stfrd-6-Jwhubdnmm PEP Interpretation Triglycerides LDL Cholesterol Direct HDL Cholesterol Free T4 PTH Intact Urine WBC (Auto) Urine Creatinine Salicylates Acetaminophen Crossmatch 03/24/19 03/24/19 03/24/19 04:50 05:06 12:55 WBC RBC Hgb Hct MCV MCH MCHC RDW Plt Count Lymph % (Auto) [place] % (Auto) Eos % (Auto) Lymph # [place] # Eos # Seg Neutrophils % Seg Neuts % (Manual) Lymphocytes % (Manual) Monocytes % (Manual) Eosinophils % (Manual) Nucleated RBC % Seg Neutrophils # Seg Neutrophils # Man Lymphocytes # (Manual) Monocytes # (Manual) Eosinophils # (Manual) PT INR D-Dimer Heparin Anti-Xa Level POC ABG pH ABG pH POC ABG pCO2 POC ABG pO2 ABG pO2 ABG HCO3 ABG O2 Saturation ABG Base Excess ABG Hemoglobin Oxyhemoglobin Sodium 134 L Potassium 5.1 H Chloride 95.3 L Carbon Dioxide 21 L BUN 85 H Creatinine 6.4 H Glucose 109 H POC Glucose 112 H 110 H Lactic Acid Calcium 5.8 L* Ionized Calcium Phosphorus Magnesium Iron TIBC Ferritin Total Bilirubin Direct Bilirubin AST ALT Alkaline Phosphatase Total Creatine Kinase 5747 H CK-MB (CK-2) Troponin T C-Reactive Protein Serum Total Protein Total Protein Albumin Etnxh-5-Prozfevwz Gtrmp-3-Epwmexzcc PEP Interpretation Triglycerides LDL Cholesterol Direct HDL Cholesterol Free T4 PTH Intact Urine WBC (Auto) Urine Creatinine Salicylates Acetaminophen Crossmatch 03/24/19 03/25/19 03/25/19 23:29 05:00 05:00 WBC RBC Hgb Hct MCV MCH MCHC RDW Plt Count Lymph % (Auto) [place] % (Auto) Eos % (Auto) Lymph # [place] # Eos # Seg Neutrophils % Seg Neuts % (Manual) Lymphocytes % (Manual) Monocytes % (Manual) Eosinophils % (Manual) Nucleated RBC % Seg Neutrophils # Seg Neutrophils # Man Lymphocytes # (Manual) Monocytes # (Manual) Eosinophils # (Manual) PT INR D-Dimer Heparin Anti-Xa Level POC ABG pH ABG pH POC ABG pCO2 POC ABG pO2 ABG pO2 ABG HCO3 ABG O2 Saturation ABG Base Excess ABG Hemoglobin Oxyhemoglobin Sodium 133 L Potassium Chloride 94.0 L Carbon Dioxide 21 L BUN 81 H Creatinine 6.4 H Glucose POC Glucose 109 H Lactic Acid Calcium 5.5 L* Ionized Calcium Phosphorus Magnesium Iron TIBC Ferritin Total Bilirubin Direct Bilirubin AST 80 H ALT Alkaline Phosphatase 202 H Total Creatine Kinase 3589 H CK-MB (CK-2) Troponin T C-Reactive Protein Serum Total Protein Total Protein 5.3 L Albumin 2.4 L Anfzm-9-Katvdlnyt Zokil-1-Yqzxwofta PEP Interpretation Triglycerides LDL Cholesterol Direct HDL Cholesterol Free T4 PTH Intact 329.9 H Urine WBC (Auto) Urine Creatinine Salicylates Acetaminophen Crossmatch 03/25/19 03/25/19 03/26/19 05:00 06:30 04:30 WBC 23.3 H RBC 3.61 L Hgb 10.2 L Hct 31.2 L MCV MCH MCHC RDW Plt Count 57 L Lymph % (Auto) [place] % (Auto) Eos % (Auto) Lymph # [place] # Eos # Seg Neutrophils % Seg Neuts % (Manual) 92.0 H Lymphocytes % (Manual) 6.0 L Monocytes % (Manual) Eosinophils % (Manual) Nucleated RBC % Seg Neutrophils # Seg Neutrophils # Man 21.4 H Lymphocytes # (Manual) Monocytes # (Manual) Eosinophils # (Manual) PT INR D-Dimer Heparin Anti-Xa Level POC ABG pH ABG pH 7.326 L POC ABG pCO2 POC ABG pO2 ABG pO2 109.5 H 137.4 H ABG HCO3 18.8 L 18.6 L ABG O2 Saturation ABG Base Excess -4.4 L -6.8 L ABG Hemoglobin 10.1 L 9.9 L Oxyhemoglobin Sodium Potassium Chloride Carbon Dioxide BUN Creatinine Glucose POC Glucose Lactic Acid Calcium Ionized Calcium Phosphorus Magnesium Iron TIBC Ferritin Total Bilirubin Direct Bilirubin AST ALT Alkaline Phosphatase Total Creatine Kinase CK-MB (CK-2) Troponin T C-Reactive Protein Serum Total Protein Total Protein Albumin Pjhut-0-Zyqysxurj Kwcub-5-Cegyaldfc PEP Interpretation Triglycerides LDL Cholesterol Direct HDL Cholesterol Free T4 PTH Intact Urine WBC (Auto) Urine Creatinine Salicylates Acetaminophen Crossmatch 03/26/19 03/26/19 03/26/19 23:22 Unknown Unknown WBC 19.5 H RBC 3.44 L Hgb 9.8 L Hct 29.9 L MCV MCH MCHC RDW Plt Count 85 L Lymph % (Auto) [place] % (Auto) Eos % (Auto) Lymph # [place] # Eos # Seg Neutrophils % Seg Neuts % (Manual) 95.0 H Lymphocytes % (Manual) 3.0 L Monocytes % (Manual) Eosinophils % (Manual) Nucleated RBC % Seg Neutrophils # Seg Neutrophils # Man 18.5 H Lymphocytes # (Manual) 0.6 L Monocytes # (Manual) Eosinophils # (Manual) PT INR D-Dimer Heparin Anti-Xa Level POC ABG pH ABG pH POC ABG pCO2 POC ABG pO2 ABG pO2 ABG HCO3 ABG O2 Saturation ABG Base Excess ABG Hemoglobin Oxyhemoglobin Sodium 135 L Potassium 5.2 H D Chloride 92.2 L Carbon Dioxide 18 L BUN 109 H Creatinine 8.5 H Glucose 117 H POC Glucose 69 L Lactic Acid Calcium 4.5 L* D Ionized Calcium Phosphorus Magnesium Iron TIBC Ferritin Total Bilirubin Direct Bilirubin AST ALT Alkaline Phosphatase Total Creatine Kinase 4527 H CK-MB (CK-2) Troponin T C-Reactive Protein Serum Total Protein Total Protein Albumin Oquoj-2-Tspwoirvz Smatf-5-Igjohtxdn PEP Interpretation Triglycerides LDL Cholesterol Direct HDL Cholesterol Free T4 PTH Intact Urine WBC (Auto) Urine Creatinine Salicylates Acetaminophen Crossmatch 03/27/19 03/27/19 03/27/19 04:30 04:30 09:00 WBC 19.2 H RBC 3.42 L Hgb 9.9 L Hct 30.0 L MCV MCH MCHC RDW Plt Count 84 L Lymph % (Auto) [place] % (Auto) Eos % (Auto) Lymph # [place] # Eos # Seg Neutrophils % Seg Neuts % (Manual) Lymphocytes % (Manual) Monocytes % (Manual) Eosinophils % (Manual) Nucleated RBC % Seg Neutrophils # Seg Neutrophils # Man Lymphocytes # (Manual) Monocytes # (Manual) Eosinophils # (Manual) PT INR D-Dimer Heparin Anti-Xa Level POC ABG pH ABG pH POC ABG pCO2 POC ABG pO2 ABG pO2 ABG HCO3 ABG O2 Saturation ABG Base Excess ABG Hemoglobin Oxyhemoglobin Sodium 135 L Potassium Chloride 93.5 L Carbon Dioxide BUN 84 H Creatinine 7.1 H Glucose POC Glucose Lactic Acid Calcium 5.0 L* Ionized Calcium Phosphorus Magnesium Iron TIBC Ferritin Total Bilirubin Direct Bilirubin AST 78 H ALT Alkaline Phosphatase 135 H Total Creatine Kinase 4677 H CK-MB (CK-2) Troponin T C-Reactive Protein Serum Total Protein Total Protein 4.8 L Albumin 2.3 L Jrltg-3-Mcinupbmk Zabgz-8-Leqwuhxhd PEP Interpretation Triglycerides 409 H LDL Cholesterol Direct HDL Cholesterol Free T4 PTH Intact Urine WBC (Auto) Urine Creatinine Salicylates Acetaminophen Crossmatch 03/27/19 03/27/19 03/27/19 12:37 14:15 14:15 WBC RBC Hgb 9.7 L Hct 29.5 L MCV MCH MCHC RDW Plt Count 87 L Lymph % (Auto) [place] % (Auto) Eos % (Auto) Lymph # [place] # Eos # Seg Neutrophils % Seg Neuts % (Manual) Lymphocytes % (Manual) Monocytes % (Manual) Eosinophils % (Manual) Nucleated RBC % Seg Neutrophils # Seg Neutrophils # Man Lymphocytes # (Manual) Monocytes # (Manual) Eosinophils # (Manual) PT 15.9 H INR 1.30 H D-Dimer Heparin Anti-Xa Level POC ABG pH ABG pH POC ABG pCO2 POC ABG pO2 ABG pO2 ABG HCO3 ABG O2 Saturation ABG Base Excess ABG Hemoglobin Oxyhemoglobin Sodium Potassium Chloride Carbon Dioxide BUN Creatinine Glucose POC Glucose 129 H Lactic Acid Calcium Ionized Calcium Phosphorus Magnesium Iron TIBC Ferritin Total Bilirubin Direct Bilirubin AST ALT Alkaline Phosphatase Total Creatine Kinase CK-MB (CK-2) Troponin T C-Reactive Protein Serum Total Protein Total Protein Albumin Ttlqb-0-Mqdmxlbnj Qzjul-5-Fpmaxkpuu PEP Interpretation Triglycerides LDL Cholesterol Direct HDL Cholesterol Free T4 PTH Intact Urine WBC (Auto) Urine Creatinine Salicylates Acetaminophen Crossmatch 03/27/19 03/27/19 03/27/19 18:00 19:22 19:23 WBC RBC Hgb Hct MCV MCH MCHC RDW Plt Count Lymph % (Auto) [place] % (Auto) Eos % (Auto) Lymph # [place] # Eos # Seg Neutrophils % Seg Neuts % (Manual) Lymphocytes % (Manual) Monocytes % (Manual) Eosinophils % (Manual) Nucleated RBC % Seg Neutrophils # Seg Neutrophils # Man Lymphocytes # (Manual) Monocytes # (Manual) Eosinophils # (Manual) PT INR D-Dimer Heparin Anti-Xa Level < 0.10 L POC ABG pH ABG pH POC ABG pCO2 POC ABG pO2 ABG pO2 ABG HCO3 ABG O2 Saturation ABG Base Excess ABG Hemoglobin Oxyhemoglobin Sodium Potassium Chloride Carbon Dioxide BUN Creatinine Glucose POC Glucose 121 H Lactic Acid Calcium Ionized Calcium Phosphorus Magnesium Iron TIBC Ferritin Total Bilirubin Direct Bilirubin AST ALT Alkaline Phosphatase Total Creatine Kinase 4517 H CK-MB (CK-2) Troponin T C-Reactive Protein Serum Total Protein Total Protein Albumin Hfwdy-3-Gflpcfvfw Ugjai-3-Upwhlbwyf PEP Interpretation Triglycerides LDL Cholesterol Direct HDL Cholesterol Free T4 PTH Intact Urine WBC (Auto) Urine Creatinine Salicylates Acetaminophen Crossmatch 03/27/19 03/27/19 03/28/19 22:10 23:52 03:49 WBC RBC Hgb Hct MCV MCH MCHC RDW Plt Count Lymph % (Auto) [place] % (Auto) Eos % (Auto) Lymph # [place] # Eos # Seg Neutrophils % Seg Neuts % (Manual) Lymphocytes % (Manual) Monocytes % (Manual) Eosinophils % (Manual) Nucleated RBC % Seg Neutrophils # Seg Neutrophils # Man Lymphocytes # (Manual) Monocytes # (Manual) Eosinophils # (Manual) PT INR D-Dimer Heparin Anti-Xa Level POC ABG pH 7.338 L ABG pH POC ABG pCO2 33.1 L POC ABG pO2 ABG pO2 ABG HCO3 ABG O2 Saturation ABG Base Excess ABG Hemoglobin Oxyhemoglobin Sodium Potassium Chloride Carbon Dioxide BUN Creatinine Glucose POC Glucose 113 H 117 H Lactic Acid Calcium Ionized Calcium Phosphorus Magnesium Iron TIBC Ferritin Total Bilirubin Direct Bilirubin AST ALT Alkaline Phosphatase Total Creatine Kinase CK-MB (CK-2) Troponin T C-Reactive Protein Serum Total Protein Total Protein Albumin Lesln-5-Abkbspsaf [place]-0-Xxijbzhsp PEP Interpretation Triglycerides LDL Cholesterol Direct HDL Cholesterol Free T4 PTH Intact Urine WBC (Auto) Urine Creatinine Salicylates Acetaminophen Crossmatch 03/28/19 03/28/19 03/28/19 05:13 05:13 06:18 WBC RBC Hgb Hct MCV MCH MCHC RDW Plt Count Lymph % (Auto) [place] % (Auto) Eos % (Auto) Lymph # [place] # Eos # Seg Neutrophils % Seg Neuts % (Manual) Lymphocytes % (Manual) Monocytes % (Manual) Eosinophils % (Manual) Nucleated RBC % Seg Neutrophils # Seg Neutrophils # Man Lymphocytes # (Manual) Monocytes # (Manual) Eosinophils # (Manual) PT INR D-Dimer Heparin Anti-Xa Level 0.23 L POC ABG pH ABG pH POC ABG pCO2 POC ABG pO2 ABG pO2 ABG HCO3 ABG O2 Saturation ABG Base Excess ABG Hemoglobin Oxyhemoglobin Sodium 135 L Potassium 5.5 H D Chloride 95.1 L Carbon Dioxide 16 L D BUN 129 H Creatinine 9.3 H Glucose 158 H POC Glucose 202 H Lactic Acid Calcium 4.0 L* D Ionized Calcium Phosphorus 12.40 H Magnesium Iron TIBC Ferritin Total Bilirubin Direct Bilirubin AST ALT Alkaline Phosphatase Total Creatine Kinase 4266 H CK-MB (CK-2) Troponin T C-Reactive Protein Serum Total Protein Total Protein Albumin Tvqtg-7-Flgsxlmrw Virwj-5-Gpswcmtuk PEP Interpretation Triglycerides LDL Cholesterol Direct HDL Cholesterol Free T4 PTH Intact Urine WBC (Auto) Urine Creatinine Salicylates Acetaminophen Crossmatch 03/28/19 03/28/19 03/28/19 08:25 10:00 12:00 WBC RBC Hgb 4.9 L* D Hct 15.4 L* D MCV MCH MCHC RDW Plt Count Lymph % (Auto) [place] % (Auto) Eos % (Auto) Lymph # [place] # Eos # Seg Neutrophils % Seg Neuts % (Manual) Lymphocytes % (Manual) Monocytes % (Manual) Eosinophils % (Manual) Nucleated RBC % Seg Neutrophils # Seg Neutrophils # Man Lymphocytes # (Manual) Monocytes # (Manual) Eosinophils # (Manual) PT 17.9 H INR 1.52 H D-Dimer 4845.98 H Heparin Anti-Xa Level POC ABG pH ABG pH POC ABG pCO2 POC ABG pO2 ABG pO2 ABG HCO3 ABG O2 Saturation ABG Base Excess ABG Hemoglobin Oxyhemoglobin Sodium Potassium Chloride Carbon Dioxide BUN Creatinine Glucose POC Glucose Lactic Acid Calcium Ionized Calcium Phosphorus Magnesium Iron TIBC Ferritin Total Bilirubin Direct Bilirubin AST ALT Alkaline Phosphatase Total Creatine Kinase CK-MB (CK-2) Troponin T C-Reactive Protein Serum Total Protein Total Protein Albumin Asifm-5-Ywkzpyomt Ammzh-9-Tljyspqhi PEP Interpretation Triglycerides LDL Cholesterol Direct HDL Cholesterol Free T4 PTH Intact Urine WBC (Auto) Urine Creatinine Salicylates Acetaminophen Crossmatch See Detail 03/28/19 03/28/19 03/28/19 12:28 14:10 17:43 WBC RBC Hgb 5.9 L* Hct 18.3 L* MCV MCH MCHC RDW Plt Count Lymph % (Auto) [place] % (Auto) Eos % (Auto) Lymph # [place] # Eos # Seg Neutrophils % Seg Neuts % (Manual) Lymphocytes % (Manual) Monocytes % (Manual) Eosinophils % (Manual) Nucleated RBC % Seg Neutrophils # Seg Neutrophils # Man Lymphocytes # (Manual) Monocytes # (Manual) Eosinophils # (Manual) PT INR D-Dimer Heparin Anti-Xa Level POC ABG pH ABG pH POC ABG pCO2 POC ABG pO2 ABG pO2 ABG HCO3 ABG O2 Saturation ABG Base Excess ABG Hemoglobin Oxyhemoglobin Sodium Potassium Chloride Carbon Dioxide BUN Creatinine Glucose POC Glucose 153 H 159 H Lactic Acid Calcium Ionized Calcium Phosphorus Magnesium Iron TIBC Ferritin Total Bilirubin Direct Bilirubin AST ALT Alkaline Phosphatase Total Creatine Kinase CK-MB (CK-2) Troponin T C-Reactive Protein Serum Total Protein Total Protein Albumin Ibaqw-5-Adneokqyy Vjvjx-8-Zmpdwzmvx PEP Interpretation Triglycerides LDL Cholesterol Direct HDL Cholesterol Free T4 PTH Intact Urine WBC (Auto) Urine Creatinine Salicylates Acetaminophen Crossmatch 03/28/19 03/28/19 03/28/19 18:10 Unknown 23:59 WBC 24.8 H RBC 3.42 L Hgb 10.2 L D Hct 31.1 L D MCV MCH MCHC RDW 15.4 H Plt Count 54 L Lymph % (Auto) [place] % (Auto) Eos % (Auto) Lymph # [place] # Eos # Seg Neutrophils % Seg Neuts % (Manual) 91.0 H Lymphocytes % (Manual) 8.0 L Monocytes % (Manual) Eosinophils % (Manual) Nucleated RBC % Seg Neutrophils # Seg Neutrophils # Man 22.6 H Lymphocytes # (Manual) Monocytes # (Manual) Eosinophils # (Manual) PT INR D-Dimer Heparin Anti-Xa Level POC ABG pH ABG pH POC ABG pCO2 POC ABG pO2 ABG pO2 ABG HCO3 ABG O2 Saturation ABG Base Excess ABG Hemoglobin Oxyhemoglobin Sodium Potassium 5.7 H Chloride Carbon Dioxide BUN Creatinine Glucose POC Glucose 107 H Lactic Acid Calcium Ionized Calcium Phosphorus Magnesium Iron TIBC Ferritin Total Bilirubin Direct Bilirubin AST ALT Alkaline Phosphatase Total Creatine Kinase CK-MB (CK-2) Troponin T C-Reactive Protein Serum Total Protein Total Protein Albumin Eueet-9-Xrvcwxbzh Qxwqg-5-Pplwbehcv PEP Interpretation Triglycerides LDL Cholesterol Direct HDL Cholesterol Free T4 PTH Intact Urine WBC (Auto) Urine Creatinine Salicylates Acetaminophen Crossmatch 03/29/19 03/29/19 03/29/19 04:29 05:46 06:22 WBC RBC Hgb 8.6 L Hct 25.7 L MCV MCH MCHC RDW Plt Count 93 L Lymph % (Auto) [place] % (Auto) Eos % (Auto) Lymph # [place] # Eos # Seg Neutrophils % Seg Neuts % (Manual) Lymphocytes % (Manual) Monocytes % (Manual) Eosinophils % (Manual) Nucleated RBC % Seg Neutrophils # Seg Neutrophils # Man Lymphocytes # (Manual) Monocytes # (Manual) Eosinophils # (Manual) PT INR D-Dimer Heparin Anti-Xa Level POC ABG pH ABG pH POC ABG pCO2 32.2 L POC ABG pO2 ABG pO2 ABG HCO3 ABG O2 Saturation ABG Base Excess ABG Hemoglobin Oxyhemoglobin Sodium Potassium Chloride Carbon Dioxide BUN Creatinine Glucose POC Glucose 113 H Lactic Acid Calcium Ionized Calcium Phosphorus Magnesium Iron TIBC Ferritin Total Bilirubin Direct Bilirubin AST ALT Alkaline Phosphatase Total Creatine Kinase CK-MB (CK-2) Troponin T C-Reactive Protein Serum Total Protein Total Protein Albumin Xzxwe-0-Ahnvvpzbt Ajzmu-4-Ixmnrrlwe PEP Interpretation Triglycerides LDL Cholesterol Direct HDL Cholesterol Free T4 PTH Intact Urine WBC (Auto) Urine Creatinine Salicylates Acetaminophen Crossmatch 03/29/19 03/29/19 03/29/19 06:22 06:22 06:22 WBC 23.2 H RBC 2.91 L Hgb 8.6 L Hct 25.8 L MCV MCH MCHC RDW Plt Count 91 L Lymph % (Auto) [place] % (Auto) Eos % (Auto) Lymph # [place] # Eos # Seg Neutrophils % Seg Neuts % (Manual) Lymphocytes % (Manual) Monocytes % (Manual) Eosinophils % (Manual) Nucleated RBC % Seg Neutrophils # Seg Neutrophils # Man Lymphocytes # (Manual) Monocytes # (Manual) Eosinophils # (Manual) PT INR D-Dimer Heparin Anti-Xa Level POC ABG pH ABG pH POC ABG pCO2 POC ABG pO2 ABG pO2 ABG HCO3 ABG O2 Saturation ABG Base Excess ABG Hemoglobin Oxyhemoglobin Sodium 133 L Potassium Chloride 93.8 L Carbon Dioxide 18 L BUN 109 H Creatinine 7.4 H Glucose 124 H POC Glucose Lactic Acid Calcium 4.6 L* Ionized Calcium Phosphorus Magnesium Iron TIBC Ferritin Total Bilirubin Direct Bilirubin AST ALT Alkaline Phosphatase Total Creatine Kinase 3401 H CK-MB (CK-2) Troponin T C-Reactive Protein Serum Total Protein Total Protein Albumin Ptpbb-8-Orvptdbfm Wzamw-0-Oiixqypqi PEP Interpretation Triglycerides 309 H LDL Cholesterol Direct HDL Cholesterol Free T4 PTH Intact Urine WBC (Auto) Urine Creatinine Salicylates Acetaminophen Crossmatch 03/29/19 03/29/19 03/29/19 11:48 11:48 18:24 WBC RBC Hgb 7.8 L Hct 23.2 L MCV MCH MCHC RDW Plt Count Lymph % (Auto) [place] % (Auto) Eos % (Auto) Lymph # [place] # Eos # Seg Neutrophils % Seg Neuts % (Manual) Lymphocytes % (Manual) Monocytes % (Manual) Eosinophils % (Manual) Nucleated RBC % Seg Neutrophils # Seg Neutrophils # Man Lymphocytes # (Manual) Monocytes # (Manual) Eosinophils # (Manual) PT 15.3 H INR 1.24 H D-Dimer Heparin Anti-Xa Level POC ABG pH ABG pH POC ABG pCO2 POC ABG pO2 ABG pO2 ABG HCO3 ABG O2 Saturation ABG Base Excess ABG Hemoglobin Oxyhemoglobin Sodium Potassium Chloride Carbon Dioxide BUN Creatinine Glucose POC Glucose 122 H Lactic Acid Calcium Ionized Calcium Phosphorus Magnesium Iron TIBC Ferritin Total Bilirubin Direct Bilirubin AST ALT Alkaline Phosphatase Total Creatine Kinase CK-MB (CK-2) Troponin T C-Reactive Protein Serum Total Protein Total Protein Albumin Inats-3-Cpwfcrduj Ukewg-5-Ucwqfkvfn PEP Interpretation Triglycerides LDL Cholesterol Direct HDL Cholesterol Free T4 PTH Intact Urine WBC (Auto) Urine Creatinine Salicylates Acetaminophen Crossmatch 03/30/19 03/30/19 03/30/19 00:40 04:31 05:04 WBC RBC Hgb 7.6 L Hct 23.0 L MCV MCH MCHC RDW Plt Count Lymph % (Auto) [place] % (Auto) Eos % (Auto) Lymph # [place] # Eos # Seg Neutrophils % Seg Neuts % (Manual) Lymphocytes % (Manual) Monocytes % (Manual) Eosinophils % (Manual) Nucleated RBC % Seg Neutrophils # Seg Neutrophils # Man Lymphocytes # (Manual) Monocytes # (Manual) Eosinophils # (Manual) PT INR D-Dimer Heparin Anti-Xa Level POC ABG pH 7.346 L ABG pH POC ABG pCO2 POC ABG pO2 62 L ABG pO2 ABG HCO3 ABG O2 Saturation ABG Base Excess ABG Hemoglobin Oxyhemoglobin Sodium Potassium Chloride Carbon Dioxide BUN 79 H Creatinine 6.4 H Glucose POC Glucose Lactic Acid Calcium 6.1 L D Ionized Calcium Phosphorus Magnesium Iron TIBC Ferritin Total Bilirubin Direct Bilirubin AST ALT Alkaline Phosphatase Total Creatine Kinase CK-MB (CK-2) Troponin T C-Reactive Protein Serum Total Protein Total Protein Albumin Eddts-9-Vqbhrcvcw Csxhe-8-Zqvbcnsbc PEP Interpretation Triglycerides LDL Cholesterol Direct HDL Cholesterol Free T4 PTH Intact Urine WBC (Auto) Urine Creatinine Salicylates Acetaminophen Crossmatch 03/30/19 03/30/19 03/30/19 08:45 12:09 22:43 WBC 14.3 H RBC 2.33 L Hgb 7.0 L 7.4 L Hct 21.0 L 22.3 L MCV MCH MCHC RDW 15.6 H Plt Count 135 L Lymph % (Auto) [place] % (Auto) Eos % (Auto) Lymph # [place] # Eos # Seg Neutrophils % Seg Neuts % (Manual) Lymphocytes % (Manual) Monocytes % (Manual) Eosinophils % (Manual) Nucleated RBC % Seg Neutrophils # Seg Neutrophils # Man Lymphocytes # (Manual) Monocytes # (Manual) Eosinophils # (Manual) PT INR D-Dimer Heparin Anti-Xa Level POC ABG pH ABG pH POC ABG pCO2 POC ABG pO2 ABG pO2 ABG HCO3 ABG O2 Saturation ABG Base Excess ABG Hemoglobin Oxyhemoglobin Sodium Potassium Chloride Carbon Dioxide BUN Creatinine Glucose POC Glucose Lactic Acid Calcium Ionized Calcium 3.7 L Phosphorus Magnesium Iron TIBC Ferritin Total Bilirubin Direct Bilirubin AST ALT Alkaline Phosphatase Total Creatine Kinase CK-MB (CK-2) Troponin T C-Reactive Protein Serum Total Protein Total Protein Albumin Pqkpf-8-Wighgjilv Tqztf-3-Mufdeincs PEP Interpretation Triglycerides LDL Cholesterol Direct HDL Cholesterol Free T4 PTH Intact Urine WBC (Auto) Urine Creatinine Salicylates Acetaminophen Crossmatch 03/30/19 03/30/19 03/31/19 23:38 Unknown 04:44 WBC 11.5 H RBC 2.40 L Hgb 7.3 L Hct 21.9 L MCV MCH MCHC RDW 15.4 H Plt Count Lymph % (Auto) 10.6 L [place] % (Auto) Eos % (Auto) Lymph # [place] # Eos # Seg Neutrophils % 81.7 H Seg Neuts % (Manual) Lymphocytes % (Manual) Monocytes % (Manual) Eosinophils % (Manual) Nucleated RBC % Seg Neutrophils # 9.4 H Seg Neutrophils # Man Lymphocytes # (Manual) Monocytes # (Manual) Eosinophils # (Manual) PT INR D-Dimer Heparin Anti-Xa Level POC ABG pH ABG pH POC ABG pCO2 POC ABG pO2 ABG pO2 ABG HCO3 ABG O2 Saturation ABG Base Excess ABG Hemoglobin Oxyhemoglobin Sodium Potassium Chloride Carbon Dioxide BUN Creatinine Glucose POC Glucose 155 H Lactic Acid Calcium Ionized Calcium Phosphorus Magnesium Iron TIBC Ferritin Total Bilirubin Direct Bilirubin 0.4 H AST 63 H ALT Alkaline Phosphatase Total Creatine Kinase CK-MB (CK-2) Troponin T C-Reactive Protein Serum Total Protein Total Protein 4.9 L Albumin 2.2 L Zxeoq-0-Tyhzrqial Rkmoa-1-Hfvtefoxm PEP Interpretation Triglycerides LDL Cholesterol Direct HDL Cholesterol Free T4 PTH Intact Urine WBC (Auto) Urine Creatinine Salicylates Acetaminophen Crossmatch 03/31/19 03/31/19 03/31/19 04:44 05:44 08:20 WBC RBC Hgb Hct MCV MCH MCHC RDW Plt Count Lymph % (Auto) [place] % (Auto) Eos % (Auto) Lymph # [place] # Eos # Seg Neutrophils % Seg Neuts % (Manual) Lymphocytes % (Manual) Monocytes % (Manual) Eosinophils % (Manual) Nucleated RBC % Seg Neutrophils # Seg Neutrophils # Man Lymphocytes # (Manual) Monocytes # (Manual) Eosinophils # (Manual) PT INR D-Dimer Heparin Anti-Xa Level POC ABG pH ABG pH POC ABG pCO2 53.5 H POC ABG pO2 62 L ABG pO2 ABG HCO3 ABG O2 Saturation ABG Base Excess ABG Hemoglobin Oxyhemoglobin Sodium 135 L Potassium Chloride 96.7 L Carbon Dioxide 19 L BUN 94 H Creatinine 7.8 H Glucose POC Glucose Lactic Acid Calcium 5.3 L* Ionized Calcium Phosphorus 8.20 H Magnesium Iron TIBC Ferritin Total Bilirubin Direct Bilirubin 0.4 H AST 60 H ALT Alkaline Phosphatase Total Creatine Kinase CK-MB (CK-2) Troponin T C-Reactive Protein Serum Total Protein Total Protein 4.8 L Albumin 2.1 L Vmciz-6-Zlqkqzjcw Mvcqi-3-Coxmyxrrf PEP Interpretation Triglycerides LDL Cholesterol Direct HDL Cholesterol Free T4 PTH Intact Urine WBC (Auto) Urine Creatinine Salicylates Acetaminophen Crossmatch 03/31/19 04/01/19 04/01/19 22:14 04:27 04:27 WBC RBC 2.60 L Hgb 8.0 L Hct 24.1 L MCV MCH MCHC RDW 15.7 H Plt Count Lymph % (Auto) 7.9 L [place] % (Auto) Eos % (Auto) Lymph # 0.7 L [place] # Eos # Seg Neutrophils % 83.6 H Seg Neuts % (Manual) Lymphocytes % (Manual) Monocytes % (Manual) Eosinophils % (Manual) Nucleated RBC % Seg Neutrophils # Seg Neutrophils # Man Lymphocytes # (Manual) Monocytes # (Manual) Eosinophils # (Manual) PT INR D-Dimer Heparin Anti-Xa Level POC ABG pH 7.286 L ABG pH POC ABG pCO2 54.7 H POC ABG pO2 179 H ABG pO2 ABG HCO3 ABG O2 Saturation ABG Base Excess ABG Hemoglobin Oxyhemoglobin Sodium Potassium Chloride Carbon Dioxide BUN 68 H Creatinine 6.6 H Glucose POC Glucose Lactic Acid Calcium 6.5 L D Ionized Calcium Phosphorus 7.30 H Magnesium Iron TIBC Ferritin Total Bilirubin Direct Bilirubin AST ALT Alkaline Phosphatase Total Creatine Kinase 1652 H CK-MB (CK-2) Troponin T C-Reactive Protein Serum Total Protein Total Protein Albumin Eykux-7-Nuerbvonf Cfezq-9-Lpibtmdqg PEP Interpretation Triglycerides LDL Cholesterol Direct HDL Cholesterol Free T4 PTH Intact Urine WBC (Auto) Urine Creatinine Salicylates Acetaminophen Crossmatch 04/01/19 04/01/19 04/01/19 05:14 05:37 18:37 WBC RBC Hgb Hct MCV MCH MCHC RDW Plt Count Lymph % (Auto) [place] % (Auto) Eos % (Auto) Lymph # [place] # Eos # Seg Neutrophils % Seg Neuts % (Manual) Lymphocytes % (Manual) Monocytes % (Manual) Eosinophils % (Manual) Nucleated RBC % Seg Neutrophils # Seg Neutrophils # Man Lymphocytes # (Manual) Monocytes # (Manual) Eosinophils # (Manual) PT INR D-Dimer Heparin Anti-Xa Level POC ABG pH 7.283 L ABG pH POC ABG pCO2 53.4 H POC ABG pO2 241 H ABG pO2 ABG HCO3 ABG O2 Saturation ABG Base Excess ABG Hemoglobin Oxyhemoglobin Sodium Potassium Chloride Carbon Dioxide BUN Creatinine Glucose POC Glucose 111 H 119 H Lactic Acid Calcium Ionized Calcium Phosphorus Magnesium Iron TIBC Ferritin Total Bilirubin Direct Bilirubin AST ALT Alkaline Phosphatase Total Creatine Kinase CK-MB (CK-2) Troponin T C-Reactive Protein Serum Total Protein Total Protein Albumin Plpzz-7-Brabhihfm Yjkzl-0-Tgofqlaxu PEP Interpretation Triglycerides LDL Cholesterol Direct HDL Cholesterol Free T4 PTH Intact Urine WBC (Auto) Urine Creatinine Salicylates Acetaminophen Crossmatch 04/01/19 04/02/19 04/02/19 21:28 04:40 05:03 WBC RBC 2.36 L Hgb 7.2 L Hct 21.9 L MCV MCH MCHC RDW 16.0 H Plt Count Lymph % (Auto) 10.8 L [place] % (Auto) Eos % (Auto) Lymph # 0.8 L [place] # Eos # Seg Neutrophils % 80.3 H Seg Neuts % (Manual) Lymphocytes % (Manual) Monocytes % (Manual) Eosinophils % (Manual) Nucleated RBC % Seg Neutrophils # Seg Neutrophils # Man Lymphocytes # (Manual) Monocytes # (Manual) Eosinophils # (Manual) PT INR D-Dimer Heparin Anti-Xa Level POC ABG pH 7.299 L 7.300 L ABG pH POC ABG pCO2 48.2 H 45.2 H POC ABG pO2 133 H 107 H ABG pO2 ABG HCO3 ABG O2 Saturation ABG Base Excess ABG Hemoglobin Oxyhemoglobin Sodium Potassium Chloride Carbon Dioxide BUN Creatinine Glucose POC Glucose Lactic Acid Calcium Ionized Calcium Phosphorus Magnesium Iron TIBC Ferritin Total Bilirubin Direct Bilirubin AST ALT Alkaline Phosphatase Total Creatine Kinase CK-MB (CK-2) Troponin T C-Reactive Protein Serum Total Protein Total Protein Albumin Lzmol-2-Jrzqrywud Vjpgu-0-Fmdaibysq PEP Interpretation Triglycerides LDL Cholesterol Direct HDL Cholesterol Free T4 PTH Intact Urine WBC (Auto) Urine Creatinine Salicylates Acetaminophen Crossmatch 04/02/19 04/02/19 04/02/19 05:03 05:03 12:15 WBC RBC Hgb 7.4 L Hct 22.6 L MCV MCH MCHC RDW Plt Count Lymph % (Auto) [place] % (Auto) Eos % (Auto) Lymph # [place] # Eos # Seg Neutrophils % Seg Neuts % (Manual) Lymphocytes % (Manual) Monocytes % (Manual) Eosinophils % (Manual) Nucleated RBC % Seg Neutrophils # Seg Neutrophils # Man Lymphocytes # (Manual) Monocytes # (Manual) Eosinophils # (Manual) PT INR D-Dimer Heparin Anti-Xa Level POC ABG pH ABG pH POC ABG pCO2 POC ABG pO2 ABG pO2 ABG HCO3 ABG O2 Saturation ABG Base Excess ABG Hemoglobin Oxyhemoglobin Sodium 136 L Potassium Chloride 97.8 L Carbon Dioxide 18 L BUN 82 H Creatinine 8.2 H Glucose POC Glucose Lactic Acid Calcium 6.7 L Ionized Calcium Phosphorus 7.50 H Magnesium Iron 26 L TIBC 138 L Ferritin 607.0 H Total Bilirubin Direct Bilirubin AST ALT Alkaline Phosphatase Total Creatine Kinase CK-MB (CK-2) Troponin T C-Reactive Protein Serum Total Protein Total Protein Albumin Mipoo-1-Fycbtbgas Izjay-4-Dbkacxsfn PEP Interpretation Triglycerides LDL Cholesterol Direct HDL Cholesterol Free T4 PTH Intact Urine WBC (Auto) Urine Creatinine Salicylates Acetaminophen Crossmatch 04/02/19 04/02/19 04/03/19 16:34 17:14 04:18 WBC RBC Hgb Hct MCV MCH MCHC RDW Plt Count Lymph % (Auto) [place] % (Auto) Eos % (Auto) Lymph # [place] # Eos # Seg Neutrophils % Seg Neuts % (Manual) Lymphocytes % (Manual) Monocytes % (Manual) Eosinophils % (Manual) Nucleated RBC % Seg Neutrophils # Seg Neutrophils # Man Lymphocytes # (Manual) Monocytes # (Manual) Eosinophils # (Manual) PT INR D-Dimer Heparin Anti-Xa Level POC ABG pH ABG pH POC ABG pCO2 POC ABG pO2 146 H ABG pO2 ABG HCO3 ABG O2 Saturation ABG Base Excess ABG Hemoglobin Oxyhemoglobin Sodium Potassium Chloride Carbon Dioxide BUN Creatinine Glucose POC Glucose 108 H Lactic Acid Calcium Ionized Calcium Phosphorus Magnesium Iron TIBC Ferritin Total Bilirubin Direct Bilirubin AST ALT Alkaline Phosphatase Total Creatine Kinase CK-MB (CK-2) Troponin T C-Reactive Protein Serum Total Protein Total Protein Albumin Ruhyg-0-Vxxuikliv Knvvz-4-Mabhbergp PEP Interpretation Triglycerides LDL Cholesterol Direct HDL Cholesterol Free T4 PTH Intact Urine WBC (Auto) Urine Creatinine Salicylates Acetaminophen Crossmatch See Detail 04/03/19 04/03/19 04/03/19 04:25 08:30 18:24 WBC RBC 2.40 L Hgb 7.3 L Hct 21.9 L MCV MCH MCHC RDW Plt Count Lymph % (Auto) [place] % (Auto) 7.7 H Eos % (Auto) Lymph # 0.9 L [place] # Eos # Seg Neutrophils % 74.6 H Seg Neuts % (Manual) Lymphocytes % (Manual) Monocytes % (Manual) Eosinophils % (Manual) Nucleated RBC % Seg Neutrophils # Seg Neutrophils # Man Lymphocytes # (Manual) Monocytes # (Manual) Eosinophils # (Manual) PT INR D-Dimer Heparin Anti-Xa Level POC ABG pH ABG pH POC ABG pCO2 POC ABG pO2 ABG pO2 ABG HCO3 ABG O2 Saturation ABG Base Excess ABG Hemoglobin Oxyhemoglobin Sodium 136 L Potassium Chloride 97.0 L Carbon Dioxide BUN 58 H Creatinine 7.3 H Glucose POC Glucose 106 H Lactic Acid Calcium 7.5 L Ionized Calcium Phosphorus 5.80 H D Magnesium Iron TIBC Ferritin Total Bilirubin Direct Bilirubin AST ALT Alkaline Phosphatase Total Creatine Kinase CK-MB (CK-2) Troponin T C-Reactive Protein Serum Total Protein Total Protein Albumin Iuqcr-6-Qesamgicv Sxkpa-9-Iwwacsptg PEP Interpretation Triglycerides LDL Cholesterol Direct HDL Cholesterol Free T4 PTH Intact Urine WBC (Auto) Urine Creatinine Salicylates Acetaminophen Crossmatch 04/03/19 04/04/19 04/04/19 23:43 04:47 04:47 WBC RBC 2.72 L Hgb 8.3 L Hct 24.7 L MCV MCH MCHC RDW 15.6 H Plt Count Lymph % (Auto) [place] % (Auto) 10.1 H Eos % (Auto) Lymph # 0.8 L [place] # Eos # Seg Neutrophils % 71.4 H Seg Neuts % (Manual) Lymphocytes % (Manual) Monocytes % (Manual) Eosinophils % (Manual) Nucleated RBC % Seg Neutrophils # Seg Neutrophils # Man Lymphocytes # (Manual) Monocytes # (Manual) Eosinophils # (Manual) PT INR D-Dimer Heparin Anti-Xa Level POC ABG pH ABG pH POC ABG pCO2 POC ABG pO2 ABG pO2 123.8 H ABG HCO3 ABG O2 Saturation ABG Base Excess -3.0 L ABG Hemoglobin 7.9 L Oxyhemoglobin Sodium 134 L Potassium Chloride 97.9 L Carbon Dioxide BUN 64 H Creatinine 8.1 H Glucose POC Glucose Lactic Acid Calcium 7.2 L Ionized Calcium Phosphorus Magnesium Iron TIBC Ferritin Total Bilirubin Direct Bilirubin AST ALT Alkaline Phosphatase Total Creatine Kinase CK-MB (CK-2) Troponin T C-Reactive Protein Serum Total Protein Total Protein Albumin Seuwb-0-Dgcfgnnqp Yrkrw-4-Pgivezzta PEP Interpretation Triglycerides LDL Cholesterol Direct HDL Cholesterol Free T4 PTH Intact Urine WBC (Auto) Urine Creatinine Salicylates Acetaminophen Crossmatch 04/04/19 04/04/19 04/04/19 06:07 13:40 18:18 WBC RBC Hgb Hct MCV MCH MCHC RDW Plt Count Lymph % (Auto) [place] % (Auto) Eos % (Auto) Lymph # [place] # Eos # Seg Neutrophils % Seg Neuts % (Manual) Lymphocytes % (Manual) Monocytes % (Manual) Eosinophils % (Manual) Nucleated RBC % Seg Neutrophils # Seg Neutrophils # Man Lymphocytes # (Manual) Monocytes # (Manual) Eosinophils # (Manual) PT INR D-Dimer Heparin Anti-Xa Level POC ABG pH ABG pH POC ABG pCO2 POC ABG pO2 ABG pO2 95.9 H ABG HCO3 ABG O2 Saturation ABG Base Excess -3.0 L ABG Hemoglobin 8.5 L Oxyhemoglobin Sodium Potassium Chloride Carbon Dioxide BUN Creatinine Glucose POC Glucose 107 H 107 H Lactic Acid Calcium Ionized Calcium Phosphorus Magnesium Iron TIBC Ferritin Total Bilirubin Direct Bilirubin AST ALT Alkaline Phosphatase Total Creatine Kinase CK-MB (CK-2) Troponin T C-Reactive Protein Serum Total Protein Total Protein Albumin Jgjox-4-Ktstsgfkz Ermvs-8-Dzzsjgwlg PEP Interpretation Triglycerides LDL Cholesterol Direct HDL Cholesterol Free T4 PTH Intact Urine WBC (Auto) Urine Creatinine Salicylates Acetaminophen Crossmatch 04/04/19 04/05/19 04/05/19 21:22 04:09 04:09 WBC RBC 2.76 L Hgb 8.4 L Hct 25.4 L MCV MCH MCHC RDW 15.8 H Plt Count 133 L Lymph % (Auto) [place] % (Auto) 9.6 H Eos % (Auto) Lymph # 0.7 L [place] # Eos # Seg Neutrophils % 72.6 H Seg Neuts % (Manual) Lymphocytes % (Manual) Monocytes % (Manual) Eosinophils % (Manual) Nucleated RBC % Seg Neutrophils # Seg Neutrophils # Man Lymphocytes # (Manual) Monocytes # (Manual) Eosinophils # (Manual) PT INR D-Dimer Heparin Anti-Xa Level POC ABG pH ABG pH POC ABG pCO2 47.2 H POC ABG pO2 137 H ABG pO2 ABG HCO3 ABG O2 Saturation ABG Base Excess ABG Hemoglobin Oxyhemoglobin Sodium 136 L Potassium Chloride Carbon Dioxide BUN 46 H Creatinine 6.7 H Glucose POC Glucose Lactic Acid Calcium 7.7 L Ionized Calcium Phosphorus Magnesium Iron TIBC Ferritin Total Bilirubin Direct Bilirubin AST ALT Alkaline Phosphatase Total Creatine Kinase CK-MB (CK-2) Troponin T C-Reactive Protein Serum Total Protein Total Protein Albumin Bvmwz-6-Nxarvfjak Hmthw-6-Lnphbyatc PEP Interpretation Triglycerides LDL Cholesterol Direct HDL Cholesterol Free T4 PTH Intact Urine WBC (Auto) Urine Creatinine Salicylates Acetaminophen Crossmatch 04/05/19 04/05/19 04/05/19 05:28 06:14 16:50 WBC RBC Hgb Hct MCV MCH MCHC RDW Plt Count Lymph % (Auto) [place] % (Auto) Eos % (Auto) Lymph # [place] # Eos # Seg Neutrophils % Seg Neuts % (Manual) Lymphocytes % (Manual) Monocytes % (Manual) Eosinophils % (Manual) Nucleated RBC % Seg Neutrophils # Seg Neutrophils # Man Lymphocytes # (Manual) Monocytes # (Manual) Eosinophils # (Manual) PT INR D-Dimer Heparin Anti-Xa Level POC ABG pH ABG pH POC ABG pCO2 POC ABG pO2 67 L ABG pO2 ABG HCO3 ABG O2 Saturation ABG Base Excess ABG Hemoglobin Oxyhemoglobin Sodium Potassium Chloride Carbon Dioxide BUN Creatinine Glucose POC Glucose 108 H Lactic Acid Calcium Ionized Calcium Phosphorus Magnesium Iron TIBC Ferritin Total Bilirubin Direct Bilirubin AST ALT Alkaline Phosphatase Total Creatine Kinase CK-MB (CK-2) Troponin T C-Reactive Protein Serum Total Protein Total Protein Albumin Qeeiu-9-Gvouxyamx Igiqd-6-Qcsidzviw PEP Interpretation Triglycerides LDL Cholesterol Direct HDL Cholesterol Free T4 PTH Intact Urine WBC (Auto) 40.0 H Urine Creatinine Salicylates Acetaminophen Crossmatch 04/05/19 04/06/19 04/06/19 17:22 00:13 04:44 WBC RBC 2.48 L Hgb 7.5 L Hct 22.9 L MCV MCH MCHC RDW 16.0 H Plt Count 107 L Lymph % (Auto) [place] % (Auto) 10.7 H Eos % (Auto) Lymph # 1.0 L [place] # Eos # Seg Neutrophils % Seg Neuts % (Manual) Lymphocytes % (Manual) Monocytes % (Manual) Eosinophils % (Manual) Nucleated RBC % Seg Neutrophils # Seg Neutrophils # Man Lymphocytes # (Manual) Monocytes # (Manual) Eosinophils # (Manual) PT INR D-Dimer Heparin Anti-Xa Level POC ABG pH ABG pH POC ABG pCO2 POC ABG pO2 ABG pO2 ABG HCO3 ABG O2 Saturation ABG Base Excess ABG Hemoglobin Oxyhemoglobin Sodium Potassium Chloride Carbon Dioxide BUN Creatinine Glucose POC Glucose 118 H 138 H Lactic Acid Calcium Ionized Calcium Phosphorus Magnesium Iron TIBC Ferritin Total Bilirubin Direct Bilirubin AST ALT Alkaline Phosphatase Total Creatine Kinase CK-MB (CK-2) Troponin T C-Reactive Protein Serum Total Protein Total Protein Albumin Qkbve-8-Jqclxueje Gejvv-8-Gcyildlwh PEP Interpretation Triglycerides LDL Cholesterol Direct HDL Cholesterol Free T4 PTH Intact Urine WBC (Auto) Urine Creatinine Salicylates Acetaminophen Crossmatch 04/06/19 04/06/19 04/06/19 04:44 05:20 05:23 WBC RBC Hgb Hct MCV MCH MCHC RDW Plt Count Lymph % (Auto) [place] % (Auto) Eos % (Auto) Lymph # [place] # Eos # Seg Neutrophils % Seg Neuts % (Manual) Lymphocytes % (Manual) Monocytes % (Manual) Eosinophils % (Manual) Nucleated RBC % Seg Neutrophils # Seg Neutrophils # Man Lymphocytes # (Manual) Monocytes # (Manual) Eosinophils # (Manual) PT INR D-Dimer Heparin Anti-Xa Level POC ABG pH ABG pH POC ABG pCO2 POC ABG pO2 ABG pO2 104.0 H ABG HCO3 ABG O2 Saturation ABG Base Excess -2.1 L ABG Hemoglobin 7.3 L Oxyhemoglobin Sodium Potassium Chloride Carbon Dioxide BUN 64 H Creatinine 8.2 H Glucose 103 H POC Glucose 118 H Lactic Acid Calcium 7.3 L Ionized Calcium Phosphorus Magnesium Iron TIBC Ferritin Total Bilirubin Direct Bilirubin AST ALT Alkaline Phosphatase Total Creatine Kinase CK-MB (CK-2) Troponin T C-Reactive Protein Serum Total Protein Total Protein Albumin Vpceg-6-Slcjhsmfr Ebadr-2-Fuypyzwjq PEP Interpretation Triglycerides LDL Cholesterol Direct HDL Cholesterol Free T4 PTH Intact Urine WBC (Auto) Urine Creatinine Salicylates Acetaminophen Crossmatch 04/06/19 04/07/19 04/07/19 12:02 05:40 05:40 WBC RBC 2.59 L Hgb 7.9 L Hct 23.8 L MCV MCH MCHC RDW 15.8 H Plt Count 89 L Lymph % (Auto) [place] % (Auto) 10.3 H Eos % (Auto) Lymph # 1.1 L [place] # Eos # Seg Neutrophils % Seg Neuts % (Manual) Lymphocytes % (Manual) Monocytes % (Manual) Eosinophils % (Manual) Nucleated RBC % Seg Neutrophils # Seg Neutrophils # Man Lymphocytes # (Manual) Monocytes # (Manual) Eosinophils # (Manual) PT INR D-Dimer Heparin Anti-Xa Level POC ABG pH ABG pH POC ABG pCO2 POC ABG pO2 ABG pO2 ABG HCO3 ABG O2 Saturation ABG Base Excess ABG Hemoglobin Oxyhemoglobin Sodium 136 L Potassium 3.5 L Chloride Carbon Dioxide BUN 46 H Creatinine 6.2 H Glucose POC Glucose 108 H Lactic Acid Calcium 7.9 L Ionized Calcium Phosphorus Magnesium Iron TIBC Ferritin Total Bilirubin Direct Bilirubin AST ALT Alkaline Phosphatase Total Creatine Kinase CK-MB (CK-2) Troponin T C-Reactive Protein Serum Total Protein Total Protein Albumin [place]-5-Mfuweuswp Jiytc-5-Cwpokhtsi PEP Interpretation Triglycerides LDL Cholesterol Direct HDL Cholesterol Free T4 PTH Intact Urine WBC (Auto) Urine Creatinine Salicylates Acetaminophen Crossmatch 04/07/19 04/09/19 04/09/19 12:57 04:28 04:28 WBC RBC 2.85 L Hgb 8.7 L Hct 26.2 L MCV MCH MCHC RDW 15.6 H Plt Count Lymph % (Auto) [place] % (Auto) 10.4 H Eos % (Auto) Lymph # 1.0 L [place] # Eos # Seg Neutrophils % 73.3 H Seg Neuts % (Manual) Lymphocytes % (Manual) Monocytes % (Manual) Eosinophils % (Manual) Nucleated RBC % Seg Neutrophils # Seg Neutrophils # Man Lymphocytes # (Manual) Monocytes # (Manual) Eosinophils # (Manual) PT INR D-Dimer Heparin Anti-Xa Level POC ABG pH ABG pH POC ABG pCO2 POC ABG pO2 107 H ABG pO2 ABG HCO3 ABG O2 Saturation ABG Base Excess ABG Hemoglobin Oxyhemoglobin Sodium Potassium 3.5 L Chloride 97.8 L Carbon Dioxide BUN 62 H Creatinine 8.1 H Glucose POC Glucose Lactic Acid Calcium 8.2 L Ionized Calcium Phosphorus 5.10 H Magnesium Iron TIBC Ferritin Total Bilirubin Direct Bilirubin AST ALT Alkaline Phosphatase Total Creatine Kinase CK-MB (CK-2) Troponin T C-Reactive Protein Serum Total Protein Total Protein Albumin [place]-3-Tukgkhags Ixtyh-7-Wocyfgmbo PEP Interpretation Triglycerides LDL Cholesterol Direct HDL Cholesterol Free T4 PTH Intact Urine WBC (Auto) Urine Creatinine Salicylates Acetaminophen Crossmatch 04/10/19 04/11/19 04/11/19 18:15 00:25 04:16 WBC 11.5 H RBC 2.91 L Hgb 8.9 L Hct 27.6 L MCV 95 H MCH MCHC RDW 17.5 H Plt Count Lymph % (Auto) [place] % (Auto) Eos % (Auto) Lymph # [place] # Eos # Seg Neutrophils % Seg Neuts % (Manual) 71.0 H Lymphocytes % (Manual) Monocytes % (Manual) 8.0 H Eosinophils % (Manual) Nucleated RBC % Seg Neutrophils # Seg Neutrophils # Man 8.2 H Lymphocytes # (Manual) Monocytes # (Manual) 0.9 H Eosinophils # (Manual) PT INR D-Dimer Heparin Anti-Xa Level POC ABG pH ABG pH POC ABG pCO2 POC ABG pO2 ABG pO2 ABG HCO3 ABG O2 Saturation ABG Base Excess ABG Hemoglobin Oxyhemoglobin Sodium Potassium Chloride Carbon Dioxide BUN Creatinine Glucose POC Glucose 109 H 114 H Lactic Acid Calcium Ionized Calcium Phosphorus Magnesium Iron TIBC Ferritin Total Bilirubin Direct Bilirubin AST ALT Alkaline Phosphatase Total Creatine Kinase CK-MB (CK-2) Troponin T C-Reactive Protein Serum Total Protein Total Protein Albumin Ynjrt-0-Cmysbhnsb Vapul-0-Rzywrtxfz PEP Interpretation Triglycerides LDL Cholesterol Direct HDL Cholesterol Free T4 PTH Intact Urine WBC (Auto) Urine Creatinine Salicylates Acetaminophen Crossmatch 04/11/19 04/11/19 04/11/19 06:47 09:21 12:15 WBC RBC Hgb Hct MCV MCH MCHC RDW Plt Count Lymph % (Auto) [place] % (Auto) Eos % (Auto) Lymph # [place] # Eos # Seg Neutrophils % Seg Neuts % (Manual) Lymphocytes % (Manual) Monocytes % (Manual) Eosinophils % (Manual) Nucleated RBC % Seg Neutrophils # Seg Neutrophils # Man Lymphocytes # (Manual) Monocytes # (Manual) Eosinophils # (Manual) PT INR D-Dimer Heparin Anti-Xa Level POC ABG pH ABG pH POC ABG pCO2 POC ABG pO2 ABG pO2 ABG HCO3 ABG O2 Saturation ABG Base Excess ABG Hemoglobin Oxyhemoglobin Sodium Potassium 3.5 L Chloride Carbon Dioxide BUN 45 H Creatinine 6.0 H Glucose 113 H POC Glucose 106 H 109 H Lactic Acid Calcium Ionized Calcium Phosphorus Magnesium Iron TIBC Ferritin Total Bilirubin Direct Bilirubin AST ALT Alkaline Phosphatase Total Creatine Kinase CK-MB (CK-2) Troponin T C-Reactive Protein Serum Total Protein Total Protein Albumin Huvtx-5-Xwnxszvyi Zadrb-8-Lyaqiaqxg PEP Interpretation Triglycerides LDL Cholesterol Direct HDL Cholesterol Free T4 PTH Intact Urine WBC (Auto) Urine Creatinine Salicylates Acetaminophen Crossmatch 04/11/19 04/12/19 04/12/19 18:42 12:13 23:52 WBC RBC Hgb Hct MCV MCH MCHC RDW Plt Count Lymph % (Auto) [place] % (Auto) Eos % (Auto) Lymph # [place] # Eos # Seg Neutrophils % Seg Neuts % (Manual) Lymphocytes % (Manual) Monocytes % (Manual) Eosinophils % (Manual) Nucleated RBC % Seg Neutrophils # Seg Neutrophils # Man Lymphocytes # (Manual) Monocytes # (Manual) Eosinophils # (Manual) PT INR D-Dimer Heparin Anti-Xa Level POC ABG pH ABG pH POC ABG pCO2 POC ABG pO2 ABG pO2 ABG HCO3 ABG O2 Saturation ABG Base Excess ABG Hemoglobin Oxyhemoglobin Sodium Potassium Chloride Carbon Dioxide BUN Creatinine Glucose POC Glucose 107 H 115 H 124 H Lactic Acid Calcium Ionized Calcium Phosphorus Magnesium Iron TIBC Ferritin Total Bilirubin Direct Bilirubin AST ALT Alkaline Phosphatase Total Creatine Kinase CK-MB (CK-2) Troponin T C-Reactive Protein Serum Total Protein Total Protein Albumin Lxnay-4-Jkucmwlpv Kupsj-9-Xwgqlfvuy PEP Interpretation Triglycerides LDL Cholesterol Direct HDL Cholesterol Free T4 PTH Intact Urine WBC (Auto) Urine Creatinine Salicylates Acetaminophen Crossmatch 04/13/19 04/13/19 04/13/19 05:00 05:00 05:47 WBC 11.7 H RBC 2.97 L Hgb 8.8 L Hct 27.3 L MCV MCH MCHC RDW 16.1 H Plt Count Lymph % (Auto) 9.5 L [place] % (Auto) 9.9 H Eos % (Auto) Lymph # 1.1 L [place] # 1.2 H Eos # Seg Neutrophils % 78.6 H Seg Neuts % (Manual) Lymphocytes % (Manual) Monocytes % (Manual) Eosinophils % (Manual) Nucleated RBC % Seg Neutrophils # 9.2 H Seg Neutrophils # Man Lymphocytes # (Manual) Monocytes # (Manual) Eosinophils # (Manual) PT INR D-Dimer Heparin Anti-Xa Level POC ABG pH ABG pH POC ABG pCO2 POC ABG pO2 ABG pO2 ABG HCO3 ABG O2 Saturation ABG Base Excess ABG Hemoglobin Oxyhemoglobin Sodium Potassium 3.5 L Chloride Carbon Dioxide BUN 42 H Creatinine 4.6 H Glucose 106 H POC Glucose 107 H Lactic Acid Calcium 10.6 H D Ionized Calcium Phosphorus 5.90 H Magnesium Iron TIBC Ferritin Total Bilirubin Direct Bilirubin AST ALT Alkaline Phosphatase Total Creatine Kinase CK-MB (CK-2) Troponin T C-Reactive Protein Serum Total Protein Total Protein 5.8 L Albumin 2.5 L Ffgaq-0-Zuntylhav Qapil-1-Iqyusjopb PEP Interpretation Triglycerides LDL Cholesterol Direct HDL Cholesterol Free T4 PTH Intact Urine WBC (Auto) Urine Creatinine Salicylates Acetaminophen Crossmatch 04/13/19 04/14/19 04/14/19 17:32 00:00 03:55 WBC RBC Hgb Hct MCV MCH MCHC RDW Plt Count Lymph % (Auto) [place] % (Auto) Eos % (Auto) Lymph # [place] # Eos # Seg Neutrophils % Seg Neuts % (Manual) Lymphocytes % (Manual) Monocytes % (Manual) Eosinophils % (Manual) Nucleated RBC % Seg Neutrophils # Seg Neutrophils # Man Lymphocytes # (Manual) Monocytes # (Manual) Eosinophils # (Manual) PT INR D-Dimer Heparin Anti-Xa Level POC ABG pH ABG pH POC ABG pCO2 POC ABG pO2 ABG pO2 ABG HCO3 ABG O2 Saturation ABG Base Excess ABG Hemoglobin Oxyhemoglobin Sodium Potassium 3.0 L Chloride Carbon Dioxide BUN 30 H Creatinine 3.1 H Glucose POC Glucose 112 H 120 H Lactic Acid Calcium 10.8 H Ionized Calcium Phosphorus Magnesium Iron TIBC Ferritin Total Bilirubin Direct Bilirubin AST ALT Alkaline Phosphatase Total Creatine Kinase CK-MB (CK-2) Troponin T C-Reactive Protein Serum Total Protein Total Protein Albumin Tqozc-6-Nynnewgcp Zwnil-3-Jwilntabg PEP Interpretation Triglycerides LDL Cholesterol Direct HDL Cholesterol Free T4 PTH Intact Urine WBC (Auto) Urine Creatinine Salicylates Acetaminophen Crossmatch 04/14/19 04/14/19 04/15/19 11:56 23:28 05:11 WBC 13.0 H RBC 2.93 L Hgb 8.6 L Hct 26.5 L MCV MCH MCHC RDW 16.5 H Plt Count Lymph % (Auto) 12.2 L [place] % (Auto) 9.1 H Eos % (Auto) Lymph # [place] # 1.2 H Eos # Seg Neutrophils % 77.6 H Seg Neuts % (Manual) Lymphocytes % (Manual) Monocytes % (Manual) Eosinophils % (Manual) Nucleated RBC % Seg Neutrophils # 10.1 H Seg Neutrophils # Man Lymphocytes # (Manual) Monocytes # (Manual) Eosinophils # (Manual) PT INR D-Dimer Heparin Anti-Xa Level POC ABG pH ABG pH POC ABG pCO2 POC ABG pO2 ABG pO2 ABG HCO3 ABG O2 Saturation ABG Base Excess ABG Hemoglobin Oxyhemoglobin Sodium Potassium Chloride Carbon Dioxide BUN Creatinine Glucose POC Glucose 109 H 112 H Lactic Acid Calcium Ionized Calcium Phosphorus Magnesium Iron TIBC Ferritin Total Bilirubin Direct Bilirubin AST ALT Alkaline Phosphatase Total Creatine Kinase CK-MB (CK-2) Troponin T C-Reactive Protein Serum Total Protein Total Protein Albumin Rveza-2-Slypvxnrm Ctnnb-4-Chtewcffl PEP Interpretation Triglycerides LDL Cholesterol Direct HDL Cholesterol Free T4 PTH Intact Urine WBC (Auto) Urine Creatinine Salicylates Acetaminophen Crossmatch 04/15/19 04/15/19 04/15/19 05:11 05:31 18:03 WBC RBC Hgb Hct MCV MCH MCHC RDW Plt Count Lymph % (Auto) [place] % (Auto) Eos % (Auto) Lymph # [place] # Eos # Seg Neutrophils % Seg Neuts % (Manual) Lymphocytes % (Manual) Monocytes % (Manual) Eosinophils % (Manual) Nucleated RBC % Seg Neutrophils # Seg Neutrophils # Man Lymphocytes # (Manual) Monocytes # (Manual) Eosinophils # (Manual) PT INR D-Dimer Heparin Anti-Xa Level POC ABG pH ABG pH POC ABG pCO2 POC ABG pO2 ABG pO2 ABG HCO3 ABG O2 Saturation ABG Base Excess ABG Hemoglobin Oxyhemoglobin Sodium Potassium 3.2 L Chloride Carbon Dioxide BUN 44 H Creatinine 3.6 H Glucose 106 H POC Glucose 110 H 121 H Lactic Acid Calcium 12.0 H Ionized Calcium Phosphorus 5.00 H Magnesium Iron TIBC Ferritin Total Bilirubin Direct Bilirubin AST ALT Alkaline Phosphatase Total Creatine Kinase CK-MB (CK-2) Troponin T C-Reactive Protein Serum Total Protein Total Protein Albumin Gljtd-9-Tvaeculpp Kyjmg-9-Vcslnqopb PEP Interpretation Triglycerides LDL Cholesterol Direct HDL Cholesterol Free T4 PTH Intact Urine WBC (Auto) Urine Creatinine Salicylates Acetaminophen Crossmatch 04/16/19 04/16/19 04/17/19 05:07 05:07 04:15 WBC 12.6 H RBC 3.12 L Hgb 9.0 L Hct 28.2 L MCV MCH MCHC RDW 16.6 H Plt Count Lymph % (Auto) 10.3 L [place] % (Auto) 9.8 H Eos % (Auto) Lymph # [place] # 1.2 H Eos # Seg Neutrophils % 78.2 H Seg Neuts % (Manual) Lymphocytes % (Manual) Monocytes % (Manual) Eosinophils % (Manual) Nucleated RBC % Seg Neutrophils # 9.9 H Seg Neutrophils # Man Lymphocytes # (Manual) Monocytes # (Manual) Eosinophils # (Manual) PT INR D-Dimer Heparin Anti-Xa Level POC ABG pH ABG pH POC ABG pCO2 POC ABG pO2 ABG pO2 ABG HCO3 ABG O2 Saturation ABG Base Excess ABG Hemoglobin Oxyhemoglobin Sodium 147 H 150 H Potassium 3.5 L 3.1 L Chloride Carbon Dioxide 32 H BUN 54 H 65 H Creatinine 3.8 H 4.0 H Glucose 102 H 107 H POC Glucose Lactic Acid Calcium 11.7 H 12.0 H Ionized Calcium Phosphorus 5.40 H Magnesium Iron TIBC Ferritin Total Bilirubin Direct Bilirubin AST ALT Alkaline Phosphatase Total Creatine Kinase CK-MB (CK-2) Troponin T C-Reactive Protein 7.10 H Serum Total Protein Total Protein Albumin Jgjys-4-Qdeudnnlf Kowqv-6-Ceoqrxequ PEP Interpretation Triglycerides LDL Cholesterol Direct HDL Cholesterol Free T4 PTH Intact Urine WBC (Auto) Urine Creatinine Salicylates Acetaminophen Crossmatch 04/17/19 04/17/19 04/17/19 04:15 06:05 12:49 WBC 15.8 H RBC 3.32 L Hgb 9.5 L Hct 29.9 L MCV MCH MCHC RDW 16.9 H Plt Count Lymph % (Auto) 12.6 L [place] % (Auto) 11.1 H Eos % (Auto) Lymph # [place] # 1.7 H Eos # Seg Neutrophils % 74.7 H Seg Neuts % (Manual) Lymphocytes % (Manual) Monocytes % (Manual) Eosinophils % (Manual) Nucleated RBC % Seg Neutrophils # 11.8 H Seg Neutrophils # Man Lymphocytes # (Manual) Monocytes # (Manual) Eosinophils # (Manual) PT INR D-Dimer Heparin Anti-Xa Level POC ABG pH ABG pH POC ABG pCO2 POC ABG pO2 ABG pO2 ABG HCO3 ABG O2 Saturation ABG Base Excess ABG Hemoglobin Oxyhemoglobin Sodium Potassium Chloride Carbon Dioxide BUN Creatinine Glucose POC Glucose 111 H 108 H Lactic Acid Calcium Ionized Calcium Phosphorus Magnesium Iron TIBC Ferritin Total Bilirubin Direct Bilirubin AST ALT Alkaline Phosphatase Total Creatine Kinase CK-MB (CK-2) Troponin T C-Reactive Protein Serum Total Protein Total Protein Albumin Xhvuy-0-Rkeiljaxt Ixwfc-0-Emedlsvec PEP Interpretation Triglycerides LDL Cholesterol Direct HDL Cholesterol Free T4 PTH Intact Urine WBC (Auto) Urine Creatinine Salicylates Acetaminophen Crossmatch 04/18/19 04/18/19 04/18/19 00:23 04:41 04:41 WBC 19.4 H RBC 3.03 L Hgb 8.6 L Hct 27.5 L MCV MCH MCHC 31 L RDW 16.9 H Plt Count Lymph % (Auto) [place] % (Auto) Eos % (Auto) Lymph # [place] # Eos # Seg Neutrophils % Seg Neuts % (Manual) Lymphocytes % (Manual) Monocytes % (Manual) Eosinophils % (Manual) Nucleated RBC % Seg Neutrophils # Seg Neutrophils # Man Lymphocytes # (Manual) Monocytes # (Manual) Eosinophils # (Manual) PT INR D-Dimer Heparin Anti-Xa Level POC ABG pH ABG pH POC ABG pCO2 POC ABG pO2 ABG pO2 ABG HCO3 ABG O2 Saturation ABG Base Excess ABG Hemoglobin Oxyhemoglobin Sodium 152 H Potassium 3.0 L Chloride Carbon Dioxide BUN 80 H Creatinine 4.3 H Glucose 103 H POC Glucose 115 H Lactic Acid Calcium 11.4 H Ionized Calcium Phosphorus Magnesium Iron TIBC Ferritin Total Bilirubin Direct Bilirubin AST ALT Alkaline Phosphatase Total Creatine Kinase CK-MB (CK-2) Troponin T C-Reactive Protein Serum Total Protein Total Protein Albumin Nntgj-5-Nxguqxsot Gkfbk-2-Pxosmjufp PEP Interpretation Triglycerides LDL Cholesterol Direct HDL Cholesterol Free T4 PTH Intact Urine WBC (Auto) Urine Creatinine Salicylates Acetaminophen Crossmatch 04/18/19 04/18/19 04/18/19 06:17 12:16 18:10 WBC RBC Hgb Hct MCV MCH MCHC RDW Plt Count Lymph % (Auto) [place] % (Auto) Eos % (Auto) Lymph # [place] # Eos # Seg Neutrophils % Seg Neuts % (Manual) Lymphocytes % (Manual) Monocytes % (Manual) Eosinophils % (Manual) Nucleated RBC % Seg Neutrophils # Seg Neutrophils # Man Lymphocytes # (Manual) Monocytes # (Manual) Eosinophils # (Manual) PT INR D-Dimer Heparin Anti-Xa Level POC ABG pH ABG pH POC ABG pCO2 POC ABG pO2 ABG pO2 ABG HCO3 ABG O2 Saturation ABG Base Excess ABG Hemoglobin Oxyhemoglobin Sodium Potassium Chloride Carbon Dioxide BUN Creatinine Glucose POC Glucose 124 H 119 H 111 H Lactic Acid Calcium Ionized Calcium Phosphorus Magnesium Iron TIBC Ferritin Total Bilirubin Direct Bilirubin AST ALT Alkaline Phosphatase Total Creatine Kinase CK-MB (CK-2) Troponin T C-Reactive Protein Serum Total Protein Total Protein Albumin Gaibr-6-Bjhseaiff Qcdcn-0-Ucttxwzem PEP Interpretation Triglycerides LDL Cholesterol Direct HDL Cholesterol Free T4 PTH Intact Urine WBC (Auto) Urine Creatinine Salicylates Acetaminophen Crossmatch 04/19/19 04/19/19 04/20/19 03:49 05:27 09:09 WBC RBC Hgb Hct MCV MCH MCHC RDW Plt Count Lymph % (Auto) [place] % (Auto) Eos % (Auto) Lymph # [place] # Eos # Seg Neutrophils % Seg Neuts % (Manual) Lymphocytes % (Manual) Monocytes % (Manual) Eosinophils % (Manual) Nucleated RBC % Seg Neutrophils # Seg Neutrophils # Man Lymphocytes # (Manual) Monocytes # (Manual) Eosinophils # (Manual) PT INR D-Dimer Heparin Anti-Xa Level POC ABG pH ABG pH POC ABG pCO2 POC ABG pO2 ABG pO2 ABG HCO3 ABG O2 Saturation ABG Base Excess ABG Hemoglobin Oxyhemoglobin Sodium 147 H 150 H Potassium 3.3 L Chloride 108.9 H Carbon Dioxide BUN 45 H 70 H Creatinine 2.9 H 4.1 H Glucose 105 H POC Glucose 124 H Lactic Acid Calcium 10.6 H 11.6 H Ionized Calcium Phosphorus Magnesium Iron TIBC Ferritin Total Bilirubin Direct Bilirubin AST ALT Alkaline Phosphatase Total Creatine Kinase CK-MB (CK-2) Troponin T C-Reactive Protein Serum Total Protein Total Protein Albumin Wuxzx-8-Wisiiieli Noodj-9-Uoiznmwps PEP Interpretation Triglycerides LDL Cholesterol Direct HDL Cholesterol Free T4 PTH Intact Urine WBC (Auto) Urine Creatinine Salicylates Acetaminophen Crossmatch 04/20/19 04/20/19 04/21/19 12:29 18:45 01:34 WBC RBC Hgb Hct MCV MCH MCHC RDW Plt Count Lymph % (Auto) [place] % (Auto) Eos % (Auto) Lymph # [place] # Eos # Seg Neutrophils % Seg Neuts % (Manual) Lymphocytes % (Manual) Monocytes % (Manual) Eosinophils % (Manual) Nucleated RBC % Seg Neutrophils # Seg Neutrophils # Man Lymphocytes # (Manual) Monocytes # (Manual) Eosinophils # (Manual) PT INR D-Dimer Heparin Anti-Xa Level POC ABG pH ABG pH POC ABG pCO2 POC ABG pO2 ABG pO2 ABG HCO3 ABG O2 Saturation ABG Base Excess ABG Hemoglobin Oxyhemoglobin Sodium Potassium Chloride Carbon Dioxide BUN 40 H Creatinine 2.6 H Glucose 104 H POC Glucose 131 H 134 H Lactic Acid Calcium 11.0 H Ionized Calcium Phosphorus Magnesium Iron TIBC Ferritin Total Bilirubin Direct Bilirubin AST ALT Alkaline Phosphatase Total Creatine Kinase CK-MB (CK-2) Troponin T C-Reactive Protein Serum Total Protein Total Protein Albumin Syjsu-2-Zlmcfjzei Xmekm-7-Uyhnzrkec PEP Interpretation Triglycerides LDL Cholesterol Direct HDL Cholesterol Free T4 PTH Intact Urine WBC (Auto) Urine Creatinine Salicylates Acetaminophen Crossmatch 04/21/19 04/21/19 04/22/19 04:22 04:22 04:24 WBC 14.2 H 14.3 H RBC 3.02 L 3.57 L Hgb 8.7 L 10.1 L Hct 27.2 L 32.1 L MCV MCH MCHC RDW 16.7 H 17.2 H Plt Count Lymph % (Auto) [place] % (Auto) Eos % (Auto) Lymph # [place] # Eos # Seg Neutrophils % Seg Neuts % (Manual) Lymphocytes % (Manual) Monocytes % (Manual) Eosinophils % (Manual) Nucleated RBC % Seg Neutrophils # Seg Neutrophils # Man Lymphocytes # (Manual) Monocytes # (Manual) Eosinophils # (Manual) PT INR D-Dimer Heparin Anti-Xa Level POC ABG pH ABG pH POC ABG pCO2 POC ABG pO2 ABG pO2 ABG HCO3 ABG O2 Saturation ABG Base Excess ABG Hemoglobin Oxyhemoglobin Sodium Potassium Chloride Carbon Dioxide BUN Creatinine Glucose POC Glucose Lactic Acid Calcium Ionized Calcium Phosphorus Magnesium Iron TIBC Ferritin Total Bilirubin Direct Bilirubin AST ALT Alkaline Phosphatase Total Creatine Kinase CK-MB (CK-2) Troponin T C-Reactive Protein Serum Total Protein 5.7 L Total Protein Albumin 2.3 L Tplny-2-Bmtuehdpd 0.5 H Mqqfy-1-Sfxxqjtcw 1.0 H PEP Interpretation see below H Triglycerides LDL Cholesterol Direct HDL Cholesterol Free T4 PTH Intact Urine WBC (Auto) Urine Creatinine Salicylates Acetaminophen Crossmatch 04/22/19 04/22/19 04/22/19 04:24 06:37 11:57 WBC RBC Hgb Hct MCV MCH MCHC RDW Plt Count Lymph % (Auto) [place] % (Auto) Eos % (Auto) Lymph # [place] # Eos # Seg Neutrophils % Seg Neuts % (Manual) Lymphocytes % (Manual) Monocytes % (Manual) Eosinophils % (Manual) Nucleated RBC % Seg Neutrophils # Seg Neutrophils # Man Lymphocytes # (Manual) Monocytes # (Manual) Eosinophils # (Manual) PT INR D-Dimer Heparin Anti-Xa Level POC ABG pH ABG pH POC ABG pCO2 POC ABG pO2 ABG pO2 ABG HCO3 ABG O2 Saturation ABG Base Excess ABG Hemoglobin Oxyhemoglobin Sodium Potassium Chloride Carbon Dioxide BUN 54 H Creatinine 3.5 H Glucose POC Glucose 113 H 110 H Lactic Acid Calcium 11.4 H Ionized Calcium Phosphorus Magnesium Iron TIBC Ferritin Total Bilirubin Direct Bilirubin AST ALT Alkaline Phosphatase Total Creatine Kinase CK-MB (CK-2) Troponin T C-Reactive Protein Serum Total Protein Total Protein Albumin Hokim-4-Uiewumsuc Rsvmx-5-Mlgczcjur PEP Interpretation Triglycerides LDL Cholesterol Direct HDL Cholesterol Free T4 PTH Intact Urine WBC (Auto) Urine Creatinine Salicylates Acetaminophen Crossmatch 04/22/19 04/23/19 04/23/19 18:33 04:06 04:06 WBC 16.1 H RBC 3.36 L Hgb 9.8 L Hct 30.8 L MCV MCH MCHC RDW 17.7 H Plt Count Lymph % (Auto) 9.9 L [place] % (Auto) Eos % (Auto) Lymph # [place] # Eos # Seg Neutrophils % 84.2 H Seg Neuts % (Manual) Lymphocytes % (Manual) Monocytes % (Manual) Eosinophils % (Manual) Nucleated RBC % Seg Neutrophils # 13.6 H Seg Neutrophils # Man Lymphocytes # (Manual) Monocytes # (Manual) Eosinophils # (Manual) PT INR D-Dimer Heparin Anti-Xa Level POC ABG pH ABG pH POC ABG pCO2 POC ABG pO2 ABG pO2 ABG HCO3 ABG O2 Saturation ABG Base Excess ABG Hemoglobin Oxyhemoglobin Sodium Potassium Chloride Carbon Dioxide BUN 59 H Creatinine 3.8 H Glucose POC Glucose 120 H Lactic Acid Calcium 12.3 H* Ionized Calcium Phosphorus 5.70 H Magnesium Iron TIBC Ferritin Total Bilirubin Direct Bilirubin AST ALT Alkaline Phosphatase Total Creatine Kinase CK-MB (CK-2) Troponin T C-Reactive Protein Serum Total Protein Total Protein Albumin 3.2 L Qoqvi-2-Gplyuhlyz Ankhl-3-Xdguyozkp PEP Interpretation Triglycerides LDL Cholesterol Direct HDL Cholesterol Free T4 PTH Intact Urine WBC (Auto) Urine Creatinine Salicylates Acetaminophen Crossmatch 04/23/19 04/24/19 04/24/19 18:06 04:12 04:12 WBC 18.0 H RBC 3.46 L Hgb 9.8 L Hct 31.2 L MCV MCH MCHC 31 L RDW 17.5 H Plt Count Lymph % (Auto) 11.1 L [place] % (Auto) Eos % (Auto) Lymph # [place] # Eos # Seg Neutrophils % 81.9 H Seg Neuts % (Manual) Lymphocytes % (Manual) Monocytes % (Manual) Eosinophils % (Manual) Nucleated RBC % Seg Neutrophils # 14.7 H Seg Neutrophils # Man Lymphocytes # (Manual) Monocytes # (Manual) Eosinophils # (Manual) PT INR D-Dimer Heparin Anti-Xa Level POC ABG pH ABG pH POC ABG pCO2 POC ABG pO2 ABG pO2 ABG HCO3 ABG O2 Saturation ABG Base Excess ABG Hemoglobin Oxyhemoglobin Sodium Potassium Chloride Carbon Dioxide BUN 56 H Creatinine 3.6 H Glucose POC Glucose 124 H Lactic Acid Calcium 12.6 H* Ionized Calcium Phosphorus Magnesium Iron TIBC Ferritin Total Bilirubin Direct Bilirubin AST ALT Alkaline Phosphatase Total Creatine Kinase CK-MB (CK-2) Troponin T C-Reactive Protein Serum Total Protein Total Protein Albumin 3.2 L Hqyux-2-Ikfozlcby Dduso-3-Bfihzfduj PEP Interpretation Triglycerides LDL Cholesterol Direct HDL Cholesterol Free T4 PTH Intact Urine WBC (Auto) Urine Creatinine Salicylates Acetaminophen Crossmatch 04/24/19 04/24/19 04/25/19 06:21 11:47 05:58 WBC 18.0 H RBC 2.98 L Hgb 8.3 L Hct 26.5 L MCV MCH MCHC 31 L RDW 17.9 H Plt Count Lymph % (Auto) 10.1 L [place] % (Auto) Eos % (Auto) Lymph # [place] # 0.9 H Eos # Seg Neutrophils % 82.8 H Seg Neuts % (Manual) Lymphocytes % (Manual) Monocytes % (Manual) Eosinophils % (Manual) Nucleated RBC % Seg Neutrophils # 15.0 H Seg Neutrophils # Man Lymphocytes # (Manual) Monocytes # (Manual) Eosinophils # (Manual) PT INR D-Dimer Heparin Anti-Xa Level POC ABG pH ABG pH POC ABG pCO2 POC ABG pO2 ABG pO2 ABG HCO3 ABG O2 Saturation ABG Base Excess ABG Hemoglobin Oxyhemoglobin Sodium Potassium Chloride Carbon Dioxide BUN Creatinine Glucose POC Glucose 132 H 106 H Lactic Acid Calcium Ionized Calcium Phosphorus Magnesium Iron TIBC Ferritin Total Bilirubin Direct Bilirubin AST ALT Alkaline Phosphatase Total Creatine Kinase CK-MB (CK-2) Troponin T C-Reactive Protein Serum Total Protein Total Protein Albumin Cnhrf-1-Uwfwxfveo Drdpw-6-Zecvtyehe PEP Interpretation Triglycerides LDL Cholesterol Direct HDL Cholesterol Free T4 PTH Intact Urine WBC (Auto) Urine Creatinine Salicylates Acetaminophen Crossmatch 04/25/19 04/26/19 04/26/19 05:58 05:57 06:08 WBC RBC Hgb Hct MCV MCH MCHC RDW Plt Count Lymph % (Auto) [place] % (Auto) Eos % (Auto) Lymph # [place] # Eos # Seg Neutrophils % Seg Neuts % (Manual) Lymphocytes % (Manual) Monocytes % (Manual) Eosinophils % (Manual) Nucleated RBC % Seg Neutrophils # Seg Neutrophils # Man Lymphocytes # (Manual) Monocytes # (Manual) Eosinophils # (Manual) PT INR D-Dimer Heparin Anti-Xa Level POC ABG pH ABG pH POC ABG pCO2 POC ABG pO2 ABG pO2 ABG HCO3 ABG O2 Saturation ABG Base Excess ABG Hemoglobin Oxyhemoglobin Sodium Potassium 3.2 L Chloride Carbon Dioxide BUN 52 H 48 H Creatinine 3.2 H 2.9 H Glucose 108 H 112 H POC Glucose 109 H Lactic Acid Calcium 11.4 H 12.5 H* Ionized Calcium Phosphorus 5.90 H Magnesium Iron TIBC Ferritin Total Bilirubin Direct Bilirubin AST ALT Alkaline Phosphatase Total Creatine Kinase CK-MB (CK-2) Troponin T C-Reactive Protein Serum Total Protein Total Protein Albumin 3.0 L Dydfu-1-Irwpoentf Spyos-6-Tervnmtdh PEP Interpretation Triglycerides LDL Cholesterol Direct HDL Cholesterol Free T4 PTH Intact Urine WBC (Auto) Urine Creatinine Salicylates Acetaminophen Crossmatch 04/26/19 04/26/19 04/27/19 07:22 13:39 05:05 WBC 11.9 H RBC 3.01 L Hgb 8.6 L Hct 26.3 L MCV MCH MCHC RDW 17.6 H Plt Count Lymph % (Auto) 11.9 L [place] % (Auto) Eos % (Auto) Lymph # [place] # Eos # Seg Neutrophils % 78.3 H Seg Neuts % (Manual) Lymphocytes % (Manual) Monocytes % (Manual) Eosinophils % (Manual) Nucleated RBC % Seg Neutrophils # 9.4 H Seg Neutrophils # Man Lymphocytes # (Manual) Monocytes # (Manual) Eosinophils # (Manual) PT INR D-Dimer Heparin Anti-Xa Level POC ABG pH ABG pH POC ABG pCO2 POC ABG pO2 ABG pO2 ABG HCO3 ABG O2 Saturation ABG Base Excess ABG Hemoglobin Oxyhemoglobin Sodium Potassium Chloride Carbon Dioxide BUN 46 H Creatinine 2.8 H Glucose POC Glucose Lactic Acid Calcium > 13.0 H* 12.2 H* Ionized Calcium Phosphorus Magnesium Iron TIBC Ferritin Total Bilirubin Direct Bilirubin AST ALT Alkaline Phosphatase Total Creatine Kinase CK-MB (CK-2) Troponin T C-Reactive Protein Serum Total Protein Total Protein Albumin Ykfpe-3-Qulherxcm Oliuf-1-Bufklqcbj PEP Interpretation Triglycerides LDL Cholesterol Direct HDL Cholesterol Free T4 PTH Intact Urine WBC (Auto) Urine Creatinine Salicylates Acetaminophen Crossmatch 04/27/19 04/28/19 04/29/19 05:05 05:17 14:14 WBC RBC Hgb Hct MCV MCH MCHC RDW Plt Count Lymph % (Auto) [place] % (Auto) Eos % (Auto) Lymph # [place] # Eos # Seg Neutrophils % Seg Neuts % (Manual) Lymphocytes % (Manual) Monocytes % (Manual) Eosinophils % (Manual) Nucleated RBC % Seg Neutrophils # Seg Neutrophils # Man Lymphocytes # (Manual) Monocytes # (Manual) Eosinophils # (Manual) PT INR D-Dimer Heparin Anti-Xa Level POC ABG pH ABG pH POC ABG pCO2 POC ABG pO2 ABG pO2 ABG HCO3 ABG O2 Saturation ABG Base Excess ABG Hemoglobin Oxyhemoglobin Sodium 136 L Potassium 3.2 L 3.4 L Chloride Carbon Dioxide BUN 40 H 34 H 33 H Creatinine 2.5 H 2.0 H 1.9 H Glucose 113 H 107 H POC Glucose Lactic Acid Calcium 12.3 H* 12.1 H* 11.5 H Ionized Calcium Phosphorus Magnesium Iron TIBC Ferritin Total Bilirubin Direct Bilirubin AST ALT Alkaline Phosphatase Total Creatine Kinase CK-MB (CK-2) Troponin T C-Reactive Protein Serum Total Protein Total Protein 6.2 L Albumin 2.8 L Kegyf-1-[place]ip Usiee-7-Etypwlbeo PEP Interpretation Triglycerides LDL Cholesterol Direct HDL Cholesterol Free T4 PTH Intact Urine WBC (Auto) Urine Creatinine Salicylates Acetaminophen Crossmatch 04/29/19 04/29/19 04/30/19 14:14 14:14 06:47 WBC RBC Hgb Hct MCV MCH MCHC RDW Plt Count Lymph % (Auto) [place] % (Auto) Eos % (Auto) Lymph # [place] # Eos # Seg Neutrophils % Seg Neuts % (Manual) Lymphocytes % (Manual) Monocytes % (Manual) Eosinophils % (Manual) Nucleated RBC % Seg Neutrophils # Seg Neutrophils # Man Lymphocytes # (Manual) Monocytes # (Manual) Eosinophils # (Manual) PT INR D-Dimer Heparin Anti-Xa Level POC ABG pH ABG pH POC ABG pCO2 POC ABG pO2 ABG pO2 ABG HCO3 ABG O2 Saturation ABG Base Excess ABG Hemoglobin Oxyhemoglobin Sodium Potassium 3.2 L Chloride Carbon Dioxide 21 L BUN 26 H Creatinine 1.8 H Glucose POC Glucose Lactic Acid Calcium 10.8 H Ionized Calcium 7.2 H* Phosphorus Magnesium Iron TIBC Ferritin Total Bilirubin Direct Bilirubin AST ALT Alkaline Phosphatase Total Creatine Kinase CK-MB (CK-2) Troponin T C-Reactive Protein Serum Total Protein Total Protein Albumin Undfy-2-Arytmaqoi Jrllp-5-Emjwnnrey PEP Interpretation Triglycerides LDL Cholesterol Direct HDL Cholesterol Free T4 PTH Intact 8.83 L Urine WBC (Auto) Urine Creatinine Salicylates Acetaminophen Crossmatch 04/30/19 05/01/19 05/01/19 12:17 06:52 06:52 WBC 15.4 H RBC 3.01 L Hgb 8.4 L Hct 26.2 L MCV MCH MCHC RDW 17.0 H Plt Count Lymph % (Auto) 8.4 L [place] % (Auto) 8.9 H Eos % (Auto) Lymph # [place] # 1.4 H Eos # 0.5 H Seg Neutrophils % 78.7 H Seg Neuts % (Manual) Lymphocytes % (Manual) Monocytes % (Manual) Eosinophils % (Manual) Nucleated RBC % Seg Neutrophils # 12.1 H Seg Neutrophils # Man Lymphocytes # (Manual) Monocytes # (Manual) Eosinophils # (Manual) PT INR D-Dimer Heparin Anti-Xa Level POC ABG pH ABG pH POC ABG pCO2 POC ABG pO2 ABG pO2 ABG HCO3 ABG O2 Saturation ABG Base Excess ABG Hemoglobin Oxyhemoglobin Sodium Potassium 3.0 L Chloride Carbon Dioxide BUN 22 H Creatinine Glucose POC Glucose 106 H Lactic Acid Calcium 11.2 H Ionized Calcium Phosphorus Magnesium Iron TIBC Ferritin Total Bilirubin Direct Bilirubin AST ALT Alkaline Phosphatase Total Creatine Kinase CK-MB (CK-2) Troponin T C-Reactive Protein Serum Total Protein Total Protein Albumin 3.0 L Lmewa-5-Zpfwfspif Sqodo-0-Hliyxlsdm PEP Interpretation Triglycerides LDL Cholesterol Direct HDL Cholesterol Free T4 PTH Intact Urine WBC (Auto) Urine Creatinine Salicylates Acetaminophen Crossmatch 05/01/19 05/01/19 05/02/19 06:52 18:40 05:32 WBC RBC Hgb Hct MCV MCH MCHC RDW Plt Count Lymph % (Auto) [place] % (Auto) Eos % (Auto) Lymph # [place] # Eos # Seg Neutrophils % Seg Neuts % (Manual) Lymphocytes % (Manual) Monocytes % (Manual) Eosinophils % (Manual) Nucleated RBC % Seg Neutrophils # Seg Neutrophils # Man Lymphocytes # (Manual) Monocytes # (Manual) Eosinophils # (Manual) PT INR D-Dimer Heparin Anti-Xa Level POC ABG pH ABG pH POC ABG pCO2 POC ABG pO2 ABG pO2 ABG HCO3 ABG O2 Saturation ABG Base Excess ABG Hemoglobin Oxyhemoglobin Sodium Potassium Chloride Carbon Dioxide BUN Creatinine Glucose POC Glucose 169 H 109 H Lactic Acid Calcium Ionized Calcium Phosphorus Magnesium Iron TIBC Ferritin Total Bilirubin Direct Bilirubin AST ALT Alkaline Phosphatase Total Creatine Kinase CK-MB (CK-2) Troponin T C-Reactive Protein Serum Total Protein 5.7 L Total Protein Albumin 2.5 L Hishq-0-Faqaxvxqi 0.5 H Ufqlh-9-Zhycoraqs PEP Interpretation see below H Triglycerides LDL Cholesterol Direct HDL Cholesterol Free T4 PTH Intact Urine WBC (Auto) Urine Creatinine Salicylates Acetaminophen Crossmatch 05/02/19 05/02/19 05/02/19 05:57 05:57 11:43 WBC 14.2 H RBC 2.96 L Hgb 8.3 L Hct 26.0 L MCV MCH MCHC RDW 16.8 H Plt Count Lymph % (Auto) [place] % (Auto) Eos % (Auto) Lymph # [place] # Eos # Seg Neutrophils % Seg Neuts % (Manual) Lymphocytes % (Manual) Monocytes % (Manual) Eosinophils % (Manual) Nucleated RBC % Seg Neutrophils # Seg Neutrophils # Man Lymphocytes # (Manual) Monocytes # (Manual) Eosinophils # (Manual) PT INR D-Dimer Heparin Anti-Xa Level POC ABG pH ABG pH POC ABG pCO2 POC ABG pO2 ABG pO2 ABG HCO3 ABG O2 Saturation ABG Base Excess ABG Hemoglobin Oxyhemoglobin Sodium 136 L Potassium 3.5 L Chloride Carbon Dioxide BUN 21 H Creatinine Glucose POC Glucose 108 H Lactic Acid Calcium 11.1 H Ionized Calcium Phosphorus Magnesium Iron TIBC Ferritin Total Bilirubin Direct Bilirubin AST ALT Alkaline Phosphatase Total Creatine Kinase CK-MB (CK-2) Troponin T C-Reactive Protein Serum Total Protein Total Protein Albumin Dmfwb-0-Nlqbznsvx Cvezu-5-Wksjkrrui PEP Interpretation Triglycerides LDL Cholesterol Direct HDL Cholesterol Free T4 PTH Intact Urine WBC (Auto) Urine Creatinine Salicylates Acetaminophen Crossmatch 05/03/19 05/03/19 05/04/19 05:37 05:37 06:49 WBC 12.7 H 11.1 H RBC 3.01 L 3.07 L Hgb 8.3 L 8.6 L Hct 26.1 L 26.6 L MCV MCH MCHC RDW 16.9 H 17.3 H Plt Count Lymph % (Auto) [place] % (Auto) 9.0 H Eos % (Auto) 4.9 H Lymph # [place] # 1.0 H Eos # 0.5 H Seg Neutrophils % Seg Neuts % (Manual) Lymphocytes % (Manual) Monocytes % (Manual) Eosinophils % (Manual) Nucleated RBC % Seg Neutrophils # 7.8 H Seg Neutrophils # Man Lymphocytes # (Manual) Monocytes # (Manual) Eosinophils # (Manual) PT INR D-Dimer Heparin Anti-Xa Level POC ABG pH ABG pH POC ABG pCO2 POC ABG pO2 ABG pO2 ABG HCO3 ABG O2 Saturation ABG Base Excess ABG Hemoglobin Oxyhemoglobin Sodium 135 L Potassium 3.3 L Chloride Carbon Dioxide BUN Creatinine Glucose POC Glucose Lactic Acid Calcium 10.9 H Ionized Calcium Phosphorus Magnesium 1.50 L Iron TIBC Ferritin Total Bilirubin Direct Bilirubin AST ALT Alkaline Phosphatase Total Creatine Kinase CK-MB (CK-2) Troponin T C-Reactive Protein Serum Total Protein Total Protein Albumin Mbswj-2-Umoafgobr Tngbp-9-Fpgneilcc PEP Interpretation Triglycerides LDL Cholesterol Direct HDL Cholesterol Free T4 PTH Intact Urine WBC (Auto) Urine Creatinine Salicylates Acetaminophen Crossmatch 05/04/19 05/04/19 05/04/19 06:49 06:49 11:58 WBC RBC Hgb Hct MCV MCH MCHC RDW Plt Count Lymph % (Auto) [place] % (Auto) Eos % (Auto) Lymph # [place] # Eos # Seg Neutrophils % Seg Neuts % (Manual) Lymphocytes % (Manual) Monocytes % (Manual) Eosinophils % (Manual) Nucleated RBC % Seg Neutrophils # Seg Neutrophils # Man Lymphocytes # (Manual) Monocytes # (Manual) Eosinophils # (Manual) PT 15.5 H INR 1.24 H D-Dimer Heparin Anti-Xa Level POC ABG pH ABG pH POC ABG pCO2 POC ABG pO2 ABG pO2 ABG HCO3 ABG O2 Saturation ABG Base Excess ABG Hemoglobin Oxyhemoglobin Sodium Potassium Chloride Carbon Dioxide 19 L BUN Creatinine Glucose POC Glucose 111 H Lactic Acid Calcium 10.7 H Ionized Calcium Phosphorus Magnesium Iron TIBC Ferritin Total Bilirubin Direct Bilirubin AST ALT Alkaline Phosphatase Total Creatine Kinase CK-MB (CK-2) Troponin T C-Reactive Protein Serum Total Protein Total Protein Albumin Eohyh-4-Fkumtixdd Ihyru-3-Dvkitsfsj PEP Interpretation Triglycerides LDL Cholesterol Direct HDL Cholesterol Free T4 PTH Intact Urine WBC (Auto) Urine Creatinine Salicylates Acetaminophen Crossmatch 05/05/19 05/05/19 05/07/19 06:14 06:14 05:55 WBC 11.5 H 12.0 H RBC 3.08 L 3.33 L Hgb 8.5 L 9.2 L Hct 26.5 L 28.5 L MCV MCH MCHC RDW 17.1 H 17.6 H Plt Count Lymph % (Auto) [place] % (Auto) Eos % (Auto) 8.2 H Lymph # [place] # Eos # 1.0 H Seg Neutrophils % Seg Neuts % (Manual) Lymphocytes % (Manual) Monocytes % (Manual) Eosinophils % (Manual) Nucleated RBC % Seg Neutrophils # 8.2 H Seg Neutrophils # Man Lymphocytes # (Manual) Monocytes # (Manual) Eosinophils # (Manual) PT INR D-Dimer Heparin Anti-Xa Level POC ABG pH ABG pH POC ABG pCO2 POC ABG pO2 ABG pO2 ABG HCO3 ABG O2 Saturation ABG Base Excess ABG Hemoglobin Oxyhemoglobin Sodium 136 L Potassium Chloride Carbon Dioxide 21 L BUN Creatinine Glucose POC Glucose Lactic Acid Calcium 10.3 H Ionized Calcium Phosphorus Magnesium Iron TIBC Ferritin Total Bilirubin Direct Bilirubin AST ALT Alkaline Phosphatase Total Creatine Kinase CK-MB (CK-2) Troponin T C-Reactive Protein Serum Total Protein Total Protein Albumin Kgovc-6-Qutewqsmp Igitv-4-Hodutvvfv PEP Interpretation Triglycerides LDL Cholesterol Direct HDL Cholesterol Free T4 PTH Intact Urine WBC (Auto) Urine Creatinine Salicylates Acetaminophen Crossmatch 05/07/19 05/08/19 05/08/19 05:55 07:27 07:27 WBC 12.5 H RBC 3.50 L Hgb 9.4 L Hct 30.4 L MCV MCH 27 L MCHC 31 L RDW 17.2 H Plt Count Lymph % (Auto) [place] % (Auto) Eos % (Auto) 10.3 H Lymph # [place] # Eos # 1.3 H Seg Neutrophils % Seg Neuts % (Manual) Lymphocytes % (Manual) Monocytes % (Manual) Eosinophils % (Manual) Nucleated RBC % Seg Neutrophils # 8.7 H Seg Neutrophils # Man Lymphocytes # (Manual) Monocytes # (Manual) Eosinophils # (Manual) PT INR D-Dimer Heparin Anti-Xa Level POC ABG pH ABG pH POC ABG pCO2 POC ABG pO2 ABG pO2 ABG HCO3 ABG O2 Saturation ABG Base Excess ABG Hemoglobin Oxyhemoglobin Sodium Potassium 3.5 L Chloride Carbon Dioxide 20 L 20 L BUN Creatinine Glucose POC Glucose Lactic Acid Calcium 10.7 H 10.7 H Ionized Calcium Phosphorus Magnesium Iron TIBC Ferritin Total Bilirubin Direct Bilirubin AST ALT Alkaline Phosphatase Total Creatine Kinase CK-MB (CK-2) Troponin T C-Reactive Protein Serum Total Protein Total Protein Albumin 3.2 L 3.4 L Kfhda-2-Qqypblmyy Litmc-9-Bhrcxfxjs PEP Interpretation Triglycerides LDL Cholesterol Direct HDL Cholesterol Free T4 PTH Intact Urine WBC (Auto) Urine Creatinine Salicylates Acetaminophen Crossmatch 05/09/19 05/09/19 05/10/19 05:41 05:41 06:42 WBC 11.7 H RBC 3.27 L Hgb 9.2 L Hct 27.9 L MCV MCH MCHC RDW 17.8 H Plt Count Lymph % (Auto) [place] % (Auto) Eos % (Auto) 14.3 H Lymph # [place] # Eos # 1.7 H Seg Neutrophils % Seg Neuts % (Manual) Lymphocytes % (Manual) Monocytes % (Manual) Eosinophils % (Manual) Nucleated RBC % Seg Neutrophils # Seg Neutrophils # Man Lymphocytes # (Manual) Monocytes # (Manual) Eosinophils # (Manual) PT INR 1.17 H D-Dimer Heparin Anti-Xa Level POC ABG pH ABG pH POC ABG pCO2 POC ABG pO2 ABG pO2 ABG HCO3 ABG O2 Saturation ABG Base Excess ABG Hemoglobin Oxyhemoglobin Sodium 136 L Potassium Chloride Carbon Dioxide 21 L BUN Creatinine Glucose POC Glucose Lactic Acid Calcium 10.6 H Ionized Calcium Phosphorus Magnesium Iron TIBC Ferritin Total Bilirubin Direct Bilirubin AST ALT Alkaline Phosphatase Total Creatine Kinase CK-MB (CK-2) Troponin T C-Reactive Protein Serum Total Protein Total Protein Albumin 3.3 L Alkzt-1-Qgfarqjtw Bvfks-6-Yyfitjitu PEP Interpretation Triglycerides LDL Cholesterol Direct HDL Cholesterol Free T4 PTH Intact Urine WBC (Auto) Urine Creatinine Salicylates Acetaminophen Crossmatch 05/10/19 05/11/19 05/13/19 06:42 04:40 08:32 WBC 11.8 H RBC 3.48 L Hgb 9.5 L Hct 30.0 L MCV MCH 27 L MCHC RDW 18.0 H Plt Count Lymph % (Auto) [place] % (Auto) Eos % (Auto) Lymph # [place] # Eos # Seg Neutrophils % Seg Neuts % (Manual) 73.0 H Lymphocytes % (Manual) 11.0 L Monocytes % (Manual) Eosinophils % (Manual) 12.0 H Nucleated RBC % Seg Neutrophils # Seg Neutrophils # Man 8.6 H Lymphocytes # (Manual) Monocytes # (Manual) Eosinophils # (Manual) 1.4 H PT INR D-Dimer Heparin Anti-Xa Level POC ABG pH ABG pH POC ABG pCO2 POC ABG pO2 ABG pO2 ABG HCO3 ABG O2 Saturation ABG Base Excess ABG Hemoglobin Oxyhemoglobin Sodium Potassium Chloride Carbon Dioxide 21 L 20 L BUN Creatinine Glucose POC Glucose Lactic Acid Calcium Ionized Calcium Phosphorus Magnesium Iron TIBC Ferritin Total Bilirubin Direct Bilirubin AST ALT Alkaline Phosphatase Total Creatine Kinase CK-MB (CK-2) Troponin T C-Reactive Protein Serum Total Protein Total Protein Albumin Nkwhf-7-Fspktgjqf Fedyw-5-Tlzqpclmy PEP Interpretation Triglycerides LDL Cholesterol Direct HDL Cholesterol Free T4 PTH Intact Urine WBC (Auto) Urine Creatinine Salicylates Acetaminophen Crossmatch 05/13/19 05/14/19 05/19/19 08:32 08:12 06:47 WBC RBC Hgb Hct MCV MCH MCHC RDW Plt Count Lymph % (Auto) [place] % (Auto) Eos % (Auto) Lymph # [place] # Eos # Seg Neutrophils % Seg Neuts % (Manual) Lymphocytes % (Manual) Monocytes % (Manual) Eosinophils % (Manual) Nucleated RBC % Seg Neutrophils # Seg Neutrophils # Man Lymphocytes # (Manual) Monocytes # (Manual) Eosinophils # (Manual) PT INR D-Dimer Heparin Anti-Xa Level POC ABG pH ABG pH POC ABG pCO2 POC ABG pO2 ABG pO2 ABG HCO3 ABG O2 Saturation ABG Base Excess ABG Hemoglobin Oxyhemoglobin Sodium Potassium Chloride Carbon Dioxide 17 L 18 L 18 L BUN Creatinine Glucose 73 L POC Glucose Lactic Acid Calcium Ionized Calcium Phosphorus Magnesium 1.60 L Iron TIBC Ferritin Total Bilirubin Direct Bilirubin AST ALT Alkaline Phosphatase Total Creatine Kinase CK-MB (CK-2) Troponin T C-Reactive Protein Serum Total Protein Total Protein Albumin 3.3 L Xoydp-1-Atnwhvuxz Bxqlq-3-Inyzwolja PEP Interpretation Triglycerides LDL Cholesterol Direct HDL Cholesterol Free T4 PTH Intact Urine WBC (Auto) Urine Creatinine Salicylates Acetaminophen Crossmatch 05/20/19 05/20/19 06:34 06:34 WBC RBC 3.22 L Hgb 9.0 L Hct 27.9 L MCV MCH MCHC RDW 18.0 H Plt Count Lymph % (Auto) [place] % (Auto) Eos % (Auto) Lymph # [place] # Eos # Seg Neutrophils % Seg Neuts % (Manual) Lymphocytes % (Manual) Monocytes % (Manual) Eosinophils % (Manual) 12.0 H Nucleated RBC % Seg Neutrophils # Seg Neutrophils # Man Lymphocytes # (Manual) Monocytes # (Manual) Eosinophils # (Manual) 1.1 H PT INR D-Dimer Heparin Anti-Xa Level POC ABG pH ABG pH POC ABG pCO2 POC ABG pO2 ABG pO2 ABG HCO3 ABG O2 Saturation ABG Base Excess ABG Hemoglobin Oxyhemoglobin Sodium Potassium Chloride Carbon Dioxide BUN Creatinine Glucose POC Glucose Lactic Acid Calcium Ionized Calcium Phosphorus 2.20 L Magnesium Iron TIBC Ferritin Total Bilirubin Direct Bilirubin AST ALT Alkaline Phosphatase Total Creatine Kinase CK-MB (CK-2) Troponin T C-Reactive Protein Serum Total Protein Total Protein Albumin Yhycj-1-[place]aa Hjcvt-8-Zqewlbpzp PEP Interpretation Triglycerides LDL Cholesterol Direct HDL Cholesterol Free T4 PTH Intact Urine WBC (Auto) Urine Creatinine Salicylates Acetaminophen Crossmatch Allied health notes reviewed: nursing
[2019-05-20] MEDS: MELATONIN 5 MG TAB PO PRN (22:10)
[2019-05-21] MEDS: HYDROcodone/ACETAMINOPHEN 5-325 MG TAB PO PRN ×4 (00:33→21:10)
[2019-05-21] MEDS: GABAPENTIN 300 MG CAP PO SCH ×3 (05:30→21:10)
[2019-05-21] MEDS: PHOS-NAK POWDER PACKET PO SCH ×2 (11:16→21:10)
[2019-05-21] MEDS: METOPROLOL SUCCINATE XL 50 MG TAB PO SCH (11:17)
[2019-05-21] MEDS: PANTOPRAZOLE 40 MG TAB PO SCH ×2 (11:17→21:10)
--- NOTE | 2019-05-21 13:42 | Progress Note ---
Assessment and Plan Patient awake and oriented. patient counselled on using O2 as needed for shortness of breath.. O2 saturation is 97% on room air. Patient complained coughed up slight sputum with traces of blood. Obtaining chest xray. No acute respiratory distress. Patient afebrile and has no leukocytosis. Patients heart rate and blood pressure running good. Patients calcium to day 8.8, in the normal range. Patient has debridement of wound on left hand. Patient has venous doppler studies of legs, reported DVT.Patient has IVC filter placement . Patient is undergoing rehab. - Patient Problems (1) Acute respiratory failure Current Visit: Yes Status: Resolved Qualifiers: Respiratory failure complication: hypoxia Qualified Code(s): J96.01 - Acute respiratory failure with hypoxia Plan to address problem: O2 2L as needed for shortness of breath or desaturation. Albuterol/atrovent aerosol treatments q 6 hours. Continue Prevacid. Patient has IVC filter placement for DVT.. (2) Altered mental status Current Visit: Yes Status: Acute Qualifiers: Altered mental status type: unspecified Qualified Code(s): R41.82 - Altered mental status, unspecified Plan to address problem: Management as per primary care and neurology. (3) Atrial fibrillation with RVR Current Visit: Yes Status: Acute Plan to address problem: Management as per cardiology. (4) Cardiopulmonary arrest Current Visit: Yes Status: Acute Plan to address problem: Patient resuscitated. Presently resting on room air. O2 saturation 97%.. (5) Acute renal failure Current Visit: Yes Status: Acute Qualifiers: Acute renal failure type: with acute tubular necrosis Qualified Code(s): N17.0 - Acute kidney failure with tubular necrosis Plan to address problem: Management as per nephrology. (6) Aspiration pneumonia Current Visit: Yes Status: Acute Qualifiers: Aspiration pneumonia type: unspecified Plan to address problem: Patient treated with Azactam and zyvox. (7) GI bleed Current Visit: Yes Status: Acute Plan to address problem: Management as per gastroenterology. (8) DVT (deep venous thrombosis) Current Visit: Yes Status: Acute Plan to address problem: Venous doppler studies of legs reported DVT. Patient has IVC filter placement for DVT.. Subjective Date of service: 05/21/19 Principal diagnosis: Septic Shock; Ac. hypoxemic resp failure; Renzo. PNA; Rhabdomyolysis; RUBEN Interval history: Patient awake and oriented. patient counselled on using O2 as needed for shortness of breath.. O2 saturation is 97% on room air. Patient complained coughed up slight sputum with traces of blood. Obtaining chest xray. No acute respiratory distress. Patient afebrile and has no leukocytosis. Patients heart rate and blood pressure running good. Patients calcium to day 8.8, in the normal range. Patient has debridement of wound on left hand. Patient has venous doppler studies of legs, reported DVT.Patient has IVC filter placement . Patient undergoing rehab. Objective Vital Signs - 12hr 05/21/19 05/21/19 05/21/19 04:39 11:14 11:17 Temperature 98.0 F 97.4 F L Pulse Rate 77 78 78 Respiratory 16 18 Rate Blood Pressure 107/61 122/83 122/83 O2 Sat by Pulse 96 97 Oximetry Constitutional: no acute distress, alert Eyes: non-icteric ENT: oropharynx moist, other Neck: supple, no lymphadenopathy, no JVD, other (large neck circumference) Effort: normal Ascultation: Bilateral: diminished breath sounds, rales, rhonchi (scant) Percussion: Bilateral: not dull Cardiovascular: regular rate and rhythm, other ( S1,S2) Gastrointestinal: normoactive bowel sounds, soft, non-tender, non-distended, other (obese) Integumentary: normal Extremities: no cyanosis, pink and warm, pulses normal, no ischemia or petechiae Neurologic: normal mental status, non-focal exam (grossly), pupils equal and round, CN II-XII normal, other (very weak, bilateral foot drop) Psychiatric: mood appropriate, affect normal CBC and BMP: 05/20/19 06:34 05/19/19 06:47 ABG, PT/INR, D-dimer: ABG POC ABG pH 7.401 (7.35-7.45) 04/07/19 12:57 ABG pH 7.388 pH Units (7.350-7.450) 04/06/19 05:20 POC ABG pCO2 41.5 (35-45) 04/07/19 12:57 ABG pCO2 38.5 mm Hg 04/06/19 05:20 POC ABG pO2 107 (80-105) H 04/07/19 12:57 ABG pO2 104.0 mm Hg (80.0-90.0) H 04/06/19 05:20 POC ABG HCO3 25.7 (22-26 mml/L) 04/07/19 12:57 POC ABG Total CO2 27 (23-27mmol/L) 04/07/19 12:57 POC ABG O2 Sat 98 04/07/19 12:57 ABG O2 Saturation 97.8 % (95.0-99.0) 04/06/19 05:20 PT/INR, D-dimer PT 14.8 Sec. (12.2-14.9) 05/10/19 06:42 INR 1.17 (0.87-1.13) H 05/10/19 06:42 D-Dimer 4845.98 ng/mlDDU (0-234) H 03/28/19 12:00 Abnormal lab findings: Abnormal Labs 03/16/19 03/16/19 03/16/19 15:32 16:03 16:05 WBC 27.0 H RBC 5.55 H Hgb 15.7 H Hct 47.1 H MCV MCH MCHC RDW Plt Count 75 L Lymph % (Auto) Rich % (Auto) Eos % (Auto) Lymph # Rich # Eos # Seg Neutrophils % Seg Neuts % (Manual) 85.0 H Lymphocytes % (Manual) 2.0 L Monocytes % (Manual) Eosinophils % (Manual) Nucleated RBC % Seg Neutrophils # Seg Neutrophils # Man 23.0 H Lymphocytes # (Manual) 0.5 L Monocytes # (Manual) Eosinophils # (Manual) PT INR D-Dimer Heparin Anti-Xa Level POC ABG pH ABG pH POC ABG pCO2 POC ABG pO2 ABG pO2 ABG HCO3 ABG O2 Saturation ABG Base Excess ABG Hemoglobin Oxyhemoglobin Sodium 127 L Potassium Chloride 87.8 L Carbon Dioxide 17 L BUN 49 H Creatinine 5.8 H Glucose 150 H POC Glucose 118 H Lactic Acid Calcium 6.6 L Ionized Calcium Phosphorus Magnesium 1.10 L Iron TIBC Ferritin Total Bilirubin Direct Bilirubin AST ALT Alkaline Phosphatase Total Creatine Kinase 47563 H CK-MB (CK-2) Troponin T C-Reactive Protein Serum Total Protein Total Protein Albumin Pmslv-3-Qquthxwpt Kgvvw-4-Vfxcoshhu PEP Interpretation Triglycerides LDL Cholesterol Direct HDL Cholesterol Free T4 PTH Intact Urine WBC (Auto) Urine Creatinine Salicylates Acetaminophen Crossmatch 03/16/19 03/16/19 03/16/19 16:59 17:05 17:05 WBC RBC Hgb Hct MCV MCH MCHC RDW Plt Count Lymph % (Auto) Rich % (Auto) Eos % (Auto) Lymph # Rich # Eos # Seg Neutrophils % Seg Neuts % (Manual) Lymphocytes % (Manual) Monocytes % (Manual) Eosinophils % (Manual) Nucleated RBC % Seg Neutrophils # Seg Neutrophils # Man Lymphocytes # (Manual) Monocytes # (Manual) Eosinophils # (Manual) PT INR D-Dimer Heparin Anti-Xa Level POC ABG pH 7.297 L ABG pH POC ABG pCO2 33.0 L POC ABG pO2 ABG pO2 ABG HCO3 ABG O2 Saturation ABG Base Excess ABG Hemoglobin Oxyhemoglobin Sodium Potassium Chloride Carbon Dioxide BUN Creatinine Glucose POC Glucose Lactic Acid Calcium Ionized Calcium Phosphorus Magnesium Iron TIBC Ferritin Total Bilirubin Direct Bilirubin AST ALT Alkaline Phosphatase Total Creatine Kinase 07081 H CK-MB (CK-2) 83.1 H Troponin T C-Reactive Protein Serum Total Protein Total Protein Albumin Fxbvu-1-Zrvltgvqu Wenrq-7-Npzmekoot PEP Interpretation Triglycerides LDL Cholesterol Direct HDL Cholesterol Free T4 0.72 L PTH Intact Urine WBC (Auto) Urine Creatinine Salicylates Acetaminophen Crossmatch 03/16/19 03/16/19 03/16/19 17:05 17:05 17:05 WBC RBC Hgb Hct MCV MCH MCHC RDW Plt Count Lymph % (Auto) Rich % (Auto) Eos % (Auto) Lymph # Rich # Eos # Seg Neutrophils % Seg Neuts % (Manual) Lymphocytes % (Manual) Monocytes % (Manual) Eosinophils % (Manual) Nucleated RBC % Seg Neutrophils # Seg Neutrophils # Man Lymphocytes # (Manual) Monocytes # (Manual) Eosinophils # (Manual) PT INR D-Dimer Heparin Anti-Xa Level POC ABG pH ABG pH POC ABG pCO2 POC ABG pO2 ABG pO2 ABG HCO3 ABG O2 Saturation ABG Base Excess ABG Hemoglobin Oxyhemoglobin Sodium Potassium Chloride Carbon Dioxide BUN Creatinine Glucose POC Glucose Lactic Acid 5.10 H* Calcium Ionized Calcium Phosphorus Magnesium Iron TIBC Ferritin Total Bilirubin Direct Bilirubin AST ALT Alkaline Phosphatase Total Creatine Kinase CK-MB (CK-2) Troponin T C-Reactive Protein Serum Total Protein Total Protein Albumin Fpsbl-2-Bvevrglyh Qrpny-5-Dfypumcrh PEP Interpretation Triglycerides LDL Cholesterol Direct HDL Cholesterol Free T4 PTH Intact Urine WBC (Auto) Urine Creatinine Salicylates < 0.3 L Acetaminophen < 5.0 L Crossmatch 03/16/19 03/16/19 03/16/19 17:05 17:05 20:35 WBC RBC Hgb Hct MCV MCH MCHC RDW Plt Count Lymph % (Auto) Rich % (Auto) Eos % (Auto) Lymph # Rich # Eos # Seg Neutrophils % Seg Neuts % (Manual) Lymphocytes % (Manual) Monocytes % (Manual) Eosinophils % (Manual) Nucleated RBC % Seg Neutrophils # Seg Neutrophils # Man Lymphocytes # (Manual) Monocytes # (Manual) Eosinophils # (Manual) PT 15.9 H INR 1.30 H D-Dimer Heparin Anti-Xa Level POC ABG pH ABG pH POC ABG pCO2 POC ABG pO2 ABG pO2 ABG HCO3 ABG O2 Saturation ABG Base Excess ABG Hemoglobin Oxyhemoglobin Sodium Potassium Chloride Carbon Dioxide BUN Creatinine Glucose POC Glucose Lactic Acid 3.30 H* Calcium Ionized Calcium Phosphorus Magnesium Iron TIBC Ferritin Total Bilirubin 6.20 H Direct Bilirubin 5.9 H AST 800 H ALT 120 H Alkaline Phosphatase Total Creatine Kinase CK-MB (CK-2) Troponin T C-Reactive Protein Serum Total Protein Total Protein 4.4 L Albumin 2.4 L Grcqu-8-Dxgjcnzio Edymx-5-Uqsdxbfua PEP Interpretation Triglycerides LDL Cholesterol Direct HDL Cholesterol Free T4 PTH Intact Urine WBC (Auto) Urine Creatinine Salicylates Acetaminophen Crossmatch 03/16/19 03/16/19 03/16/19 21:45 22:32 Unknown WBC RBC Hgb Hct MCV MCH MCHC RDW Plt Count Lymph % (Auto) Rich % (Auto) Eos % (Auto) Lymph # Rich # Eos # Seg Neutrophils % Seg Neuts % (Manual) Lymphocytes % (Manual) Monocytes % (Manual) Eosinophils % (Manual) Nucleated RBC % Seg Neutrophils # Seg Neutrophils # Man Lymphocytes # (Manual) Monocytes # (Manual) Eosinophils # (Manual) PT INR D-Dimer Heparin Anti-Xa Level POC ABG pH ABG pH POC ABG pCO2 POC ABG pO2 ABG pO2 ABG HCO3 ABG O2 Saturation ABG Base Excess ABG Hemoglobin Oxyhemoglobin Sodium Potassium Chloride Carbon Dioxide BUN Creatinine Glucose POC Glucose Lactic Acid 3.30 H* 3.00 H* Calcium Ionized Calcium Phosphorus Magnesium Iron TIBC Ferritin Total Bilirubin Direct Bilirubin AST ALT Alkaline Phosphatase Total Creatine Kinase CK-MB (CK-2) Troponin T 0.047 H D C-Reactive Protein Serum Total Protein Total Protein Albumin Usrhi-7-Tdqjvgcvw Saiym-0-Zmlhklwjj PEP Interpretation Triglycerides 395 H LDL Cholesterol Direct 10 L HDL Cholesterol 7 L Free T4 PTH Intact Urine WBC (Auto) Urine Creatinine Salicylates Acetaminophen Crossmatch 03/17/19 03/17/19 03/17/19 03:45 03:45 03:45 WBC RBC Hgb Hct MCV MCH MCHC RDW Plt Count Lymph % (Auto) Rich % (Auto) Eos % (Auto) Lymph # Rich # Eos # Seg Neutrophils % Seg Neuts % (Manual) Lymphocytes % (Manual) Monocytes % (Manual) Eosinophils % (Manual) Nucleated RBC % Seg Neutrophils # Seg Neutrophils # Man Lymphocytes # (Manual) Monocytes # (Manual) Eosinophils # (Manual) PT INR D-Dimer Heparin Anti-Xa Level POC ABG pH ABG pH POC ABG pCO2 POC ABG pO2 ABG pO2 ABG HCO3 ABG O2 Saturation ABG Base Excess ABG Hemoglobin Oxyhemoglobin Sodium 131 L Potassium Chloride 88.9 L Carbon Dioxide BUN 53 H Creatinine 7.1 H Glucose POC Glucose Lactic Acid 4.10 H* Calcium 5.4 L* D Ionized Calcium Phosphorus 7.30 H Magnesium 1.60 L Iron TIBC Ferritin Total Bilirubin 5.90 H Direct Bilirubin AST 801 H ALT 109 H Alkaline Phosphatase Total Creatine Kinase 95030 H 70309 H CK-MB (CK-2) 41.5 H Troponin T 0.054 H C-Reactive Protein Serum Total Protein Total Protein 4.5 L Albumin 2.0 L Eluvm-2-Rhbwijjts Atkjj-4-Xszmtvldm PEP Interpretation Triglycerides LDL Cholesterol Direct HDL Cholesterol Free T4 PTH Intact Urine WBC (Auto) Urine Creatinine Salicylates Acetaminophen Crossmatch 03/17/19 03/17/19 03/17/19 05:47 07:16 07:16 WBC RBC Hgb Hct MCV MCH MCHC RDW Plt Count Lymph % (Auto) Rich % (Auto) Eos % (Auto) Lymph # Rich # Eos # Seg Neutrophils % Seg Neuts % (Manual) Lymphocytes % (Manual) Monocytes % (Manual) Eosinophils % (Manual) Nucleated RBC % Seg Neutrophils # Seg Neutrophils # Man Lymphocytes # (Manual) Monocytes # (Manual) Eosinophils # (Manual) PT INR D-Dimer Heparin Anti-Xa Level POC ABG pH 7.193 L ABG pH POC ABG pCO2 45.2 H POC ABG pO2 65 L ABG pO2 ABG HCO3 ABG O2 Saturation ABG Base Excess ABG Hemoglobin Oxyhemoglobin Sodium Potassium Chloride Carbon Dioxide BUN Creatinine Glucose POC Glucose Lactic Acid 5.50 H* Calcium Ionized Calcium Phosphorus Magnesium Iron TIBC Ferritin Total Bilirubin Direct Bilirubin AST ALT Alkaline Phosphatase Total Creatine Kinase 91999 H CK-MB (CK-2) 54.3 H Troponin T 0.058 H C-Reactive Protein Serum Total Protein Total Protein Albumin Psmln-4-Legfvujdc Tcveo-1-Xuyeutzkh PEP Interpretation Triglycerides LDL Cholesterol Direct HDL Cholesterol Free T4 PTH Intact Urine WBC (Auto) Urine Creatinine Salicylates Acetaminophen Crossmatch 03/17/19 03/17/19 03/17/19 11:52 12:51 13:01 WBC RBC Hgb Hct MCV MCH MCHC RDW Plt Count Lymph % (Auto) Rich % (Auto) Eos % (Auto) Lymph # Rich # Eos # Seg Neutrophils % Seg Neuts % (Manual) Lymphocytes % (Manual) Monocytes % (Manual) Eosinophils % (Manual) Nucleated RBC % Seg Neutrophils # Seg Neutrophils # Man Lymphocytes # (Manual) Monocytes # (Manual) Eosinophils # (Manual) PT INR D-Dimer Heparin Anti-Xa Level POC ABG pH 7.154 L ABG pH POC ABG pCO2 34.3 L POC ABG pO2 73 L ABG pO2 ABG HCO3 ABG O2 Saturation ABG Base Excess ABG Hemoglobin Oxyhemoglobin Sodium Potassium Chloride Carbon Dioxide BUN Creatinine Glucose POC Glucose 60 L Lactic Acid 8.20 H* Calcium Ionized Calcium Phosphorus Magnesium Iron TIBC Ferritin Total Bilirubin Direct Bilirubin AST ALT Alkaline Phosphatase Total Creatine Kinase CK-MB (CK-2) Troponin T C-Reactive Protein Serum Total Protein Total Protein Albumin Mkejf-7-Mzyykyjqn Gdoky-8-Gahikwhhk PEP Interpretation Triglycerides LDL Cholesterol Direct HDL Cholesterol Free T4 PTH Intact Urine WBC (Auto) Urine Creatinine Salicylates Acetaminophen Crossmatch 03/17/19 03/17/19 03/17/19 14:37 14:37 14:37 WBC 29.3 H RBC Hgb Hct MCV MCH MCHC RDW 15.8 H Plt Count 45 L Lymph % (Auto) Rich % (Auto) Eos % (Auto) Lymph # Rich # Eos # Seg Neutrophils % Seg Neuts % (Manual) 81.0 H Lymphocytes % (Manual) 1.0 L Monocytes % (Manual) 15.0 H Eosinophils % (Manual) Nucleated RBC % Seg Neutrophils # Seg Neutrophils # Man 23.7 H Lymphocytes # (Manual) 0.3 L Monocytes # (Manual) 4.4 H Eosinophils # (Manual) PT INR D-Dimer Heparin Anti-Xa Level POC ABG pH ABG pH POC ABG pCO2 POC ABG pO2 ABG pO2 ABG HCO3 ABG O2 Saturation ABG Base Excess ABG Hemoglobin Oxyhemoglobin Sodium Potassium Chloride Carbon Dioxide BUN Creatinine Glucose POC Glucose Lactic Acid 4.90 H* Calcium Ionized Calcium Phosphorus Magnesium Iron TIBC Ferritin Total Bilirubin Direct Bilirubin AST ALT Alkaline Phosphatase Total Creatine Kinase CK-MB (CK-2) Troponin T C-Reactive Protein 24.90 H Serum Total Protein Total Protein Albumin Tubqa-1-Ptrskyalz Snsqa-3-Lcwpovtkw PEP Interpretation Triglycerides LDL Cholesterol Direct HDL Cholesterol Free T4 PTH Intact Urine WBC (Auto) Urine Creatinine Salicylates Acetaminophen Crossmatch 03/17/19 03/17/19 03/17/19 16:05 16:05 17:02 WBC RBC Hgb Hct MCV MCH MCHC RDW Plt Count Lymph % (Auto) Rich % (Auto) Eos % (Auto) Lymph # Rich # Eos # Seg Neutrophils % Seg Neuts % (Manual) Lymphocytes % (Manual) Monocytes % (Manual) Eosinophils % (Manual) Nucleated RBC % Seg Neutrophils # Seg Neutrophils # Man Lymphocytes # (Manual) Monocytes # (Manual) Eosinophils # (Manual) PT INR D-Dimer Heparin Anti-Xa Level POC ABG pH 7.183 L ABG pH POC ABG pCO2 POC ABG pO2 65 L ABG pO2 ABG HCO3 ABG O2 Saturation ABG Base Excess ABG Hemoglobin Oxyhemoglobin Sodium Potassium Chloride Carbon Dioxide BUN Creatinine Glucose POC Glucose Lactic Acid Calcium Ionized Calcium Phosphorus Magnesium Iron TIBC Ferritin Total Bilirubin Direct Bilirubin AST ALT Alkaline Phosphatase Total Creatine Kinase CK-MB (CK-2) Troponin T C-Reactive Protein Serum Total Protein Total Protein Albumin Tddvj-2-Dqmwihima Nwcmd-4-Ajiobffgs PEP Interpretation Triglycerides LDL Cholesterol Direct HDL Cholesterol Free T4 PTH Intact Urine WBC (Auto) 30.0 H Urine Creatinine 106.6 H Salicylates Acetaminophen Crossmatch 03/18/19 03/18/19 03/18/19 05:12 05:16 05:53 WBC RBC Hgb Hct MCV MCH MCHC RDW Plt Count Lymph % (Auto) Rich % (Auto) Eos % (Auto) Lymph # Rich # Eos # Seg Neutrophils % Seg Neuts % (Manual) Lymphocytes % (Manual) Monocytes % (Manual) Eosinophils % (Manual) Nucleated RBC % Seg Neutrophils # Seg Neutrophils # Man Lymphocytes # (Manual) Monocytes # (Manual) Eosinophils # (Manual) PT INR D-Dimer Heparin Anti-Xa Level POC ABG pH 7.257 L ABG pH POC ABG pCO2 31.6 L POC ABG pO2 69 L ABG pO2 ABG HCO3 ABG O2 Saturation ABG Base Excess ABG Hemoglobin Oxyhemoglobin Sodium Potassium Chloride Carbon Dioxide BUN Creatinine Glucose POC Glucose 141 H Lactic Acid 5.00 H* Calcium Ionized Calcium Phosphorus Magnesium Iron TIBC Ferritin Total Bilirubin Direct Bilirubin AST ALT Alkaline Phosphatase Total Creatine Kinase CK-MB (CK-2) Troponin T C-Reactive Protein Serum Total Protein Total Protein Albumin Ntdgc-9-Feygihedp Pyxwm-6-Bqkdvyygv PEP Interpretation Triglycerides LDL Cholesterol Direct HDL Cholesterol Free T4 PTH Intact Urine WBC (Auto) Urine Creatinine Salicylates Acetaminophen Crossmatch 03/18/19 03/18/19 03/18/19 06:57 08:40 08:40 WBC 31.7 H RBC Hgb Hct MCV MCH MCHC RDW 15.5 H Plt Count 35 L Lymph % (Auto) Rich % (Auto) Eos % (Auto) Lymph # Rich # Eos # Seg Neutrophils % Seg Neuts % (Manual) Lymphocytes % (Manual) Monocytes % (Manual) Eosinophils % (Manual) Nucleated RBC % Seg Neutrophils # Seg Neutrophils # Man Lymphocytes # (Manual) Monocytes # (Manual) Eosinophils # (Manual) PT INR D-Dimer Heparin Anti-Xa Level POC ABG pH ABG pH POC ABG pCO2 POC ABG pO2 ABG pO2 ABG HCO3 ABG O2 Saturation ABG Base Excess ABG Hemoglobin Oxyhemoglobin Sodium 132 L Potassium 5.5 H D Chloride 88.5 L Carbon Dioxide 18 L BUN 71 H Creatinine 8.1 H Glucose 205 H POC Glucose Lactic Acid 5.00 H* Calcium 4.1 L* D Ionized Calcium Phosphorus Magnesium 2.40 H Iron TIBC Ferritin Total Bilirubin 7.50 H Direct Bilirubin AST 1088 H ALT 159 H Alkaline Phosphatase 190 H Total Creatine Kinase 057665 H CK-MB (CK-2) Troponin T C-Reactive Protein Serum Total Protein Total Protein 4.7 L Albumin 1.8 L Cajhu-0-Hucacvpsj Iwjhk-8-Vmikdduwc PEP Interpretation Triglycerides LDL Cholesterol Direct HDL Cholesterol Free T4 PTH Intact Urine WBC (Auto) Urine Creatinine Salicylates Acetaminophen Crossmatch 03/18/19 03/18/19 03/18/19 12:33 12:50 13:19 WBC RBC Hgb Hct MCV MCH MCHC RDW Plt Count Lymph % (Auto) Rich % (Auto) Eos % (Auto) Lymph # Rich # Eos # Seg Neutrophils % Seg Neuts % (Manual) Lymphocytes % (Manual) Monocytes % (Manual) Eosinophils % (Manual) Nucleated RBC % Seg Neutrophils # Seg Neutrophils # Man Lymphocytes # (Manual) Monocytes # (Manual) Eosinophils # (Manual) PT INR D-Dimer Heparin Anti-Xa Level POC ABG pH 7.282 L ABG pH POC ABG pCO2 POC ABG pO2 67 L ABG pO2 ABG HCO3 ABG O2 Saturation ABG Base Excess ABG Hemoglobin Oxyhemoglobin Sodium Potassium Chloride Carbon Dioxide BUN Creatinine Glucose POC Glucose 129 H Lactic Acid 3.30 H* Calcium Ionized Calcium Phosphorus Magnesium Iron TIBC Ferritin Total Bilirubin Direct Bilirubin AST ALT Alkaline Phosphatase Total Creatine Kinase CK-MB (CK-2) Troponin T C-Reactive Protein Serum Total Protein Total Protein Albumin Svtwf-2-Uzuvvdieg Fxabk-0-Thkmgwtbg PEP Interpretation Triglycerides LDL Cholesterol Direct HDL Cholesterol Free T4 PTH Intact Urine WBC (Auto) Urine Creatinine Salicylates Acetaminophen Crossmatch 03/18/19 03/18/19 03/18/19 13:19 16:50 18:11 WBC RBC Hgb Hct MCV MCH MCHC RDW Plt Count Lymph % (Auto) Rich % (Auto) Eos % (Auto) Lymph # Rich # Eos # Seg Neutrophils % Seg Neuts % (Manual) Lymphocytes % (Manual) Monocytes % (Manual) Eosinophils % (Manual) Nucleated RBC % Seg Neutrophils # Seg Neutrophils # Man Lymphocytes # (Manual) Monocytes # (Manual) Eosinophils # (Manual) PT INR D-Dimer Heparin Anti-Xa Level POC ABG pH ABG pH POC ABG pCO2 POC ABG pO2 59 L ABG pO2 ABG HCO3 ABG O2 Saturation ABG Base Excess ABG Hemoglobin Oxyhemoglobin Sodium Potassium Chloride Carbon Dioxide BUN Creatinine Glucose POC Glucose 151 H Lactic Acid Calcium 4.2 L* Ionized Calcium Phosphorus Magnesium Iron TIBC Ferritin Total Bilirubin Direct Bilirubin AST ALT Alkaline Phosphatase Total Creatine Kinase 826314 H CK-MB (CK-2) Troponin T C-Reactive Protein Serum Total Protein Total Protein Albumin Psdib-2-Dxjkufvyr Gdwii-7-Qkkopplcu PEP Interpretation Triglycerides LDL Cholesterol Direct HDL Cholesterol Free T4 PTH Intact Urine WBC (Auto) Urine Creatinine Salicylates Acetaminophen Crossmatch 03/18/19 03/18/19 03/19/19 18:20 23:39 01:42 WBC RBC Hgb Hct MCV MCH MCHC RDW Plt Count Lymph % (Auto) Rich % (Auto) Eos % (Auto) Lymph # Rich # Eos # Seg Neutrophils % Seg Neuts % (Manual) Lymphocytes % (Manual) Monocytes % (Manual) Eosinophils % (Manual) Nucleated RBC % Seg Neutrophils # Seg Neutrophils # Man Lymphocytes # (Manual) Monocytes # (Manual) Eosinophils # (Manual) PT INR D-Dimer Heparin Anti-Xa Level POC ABG pH 7.345 L ABG pH 7.285 L POC ABG pCO2 POC ABG pO2 59 L ABG pO2 44.0 L ABG HCO3 ABG O2 Saturation 70.9 L ABG Base Excess -5.7 L ABG Hemoglobin 11.9 L Oxyhemoglobin 69.6 L Sodium Potassium Chloride Carbon Dioxide BUN Creatinine Glucose POC Glucose 152 H Lactic Acid Calcium Ionized Calcium Phosphorus Magnesium Iron TIBC Ferritin Total Bilirubin Direct Bilirubin AST ALT Alkaline Phosphatase Total Creatine Kinase CK-MB (CK-2) Troponin T C-Reactive Protein Serum Total Protein Total Protein Albumin Rfiyq-2-Kmkxppyxn Wnqcd-4-Ovlmijxyu PEP Interpretation Triglycerides LDL Cholesterol Direct HDL Cholesterol Free T4 PTH Intact Urine WBC (Auto) Urine Creatinine Salicylates Acetaminophen Crossmatch 03/19/19 03/19/19 03/19/19 04:00 04:00 05:35 WBC 36.5 H RBC Hgb Hct MCV MCH MCHC RDW 15.8 H Plt Count 35 L Lymph % (Auto) Rich % (Auto) Eos % (Auto) Lymph # Rich # Eos # Seg Neutrophils % Seg Neuts % (Manual) Lymphocytes % (Manual) Monocytes % (Manual) Eosinophils % (Manual) Nucleated RBC % Seg Neutrophils # Seg Neutrophils # Man Lymphocytes # (Manual) Monocytes # (Manual) Eosinophils # (Manual) PT INR D-Dimer Heparin Anti-Xa Level POC ABG pH ABG pH 7.265 L POC ABG pCO2 POC ABG pO2 ABG pO2 35.4 L* ABG HCO3 ABG O2 Saturation 54.4 L ABG Base Excess -6.7 L ABG Hemoglobin 12.9 L Oxyhemoglobin 53.4 L Sodium 132 L Potassium 5.7 H Chloride 89.8 L Carbon Dioxide 19 L BUN 62 H Creatinine 6.4 H Glucose 151 H POC Glucose Lactic Acid Calcium 5.2 L* D Ionized Calcium Phosphorus Magnesium Iron TIBC Ferritin Total Bilirubin 7.80 H Direct Bilirubin AST 682 H ALT 130 H Alkaline Phosphatase 167 H Total Creatine Kinase CK-MB (CK-2) Troponin T C-Reactive Protein Serum Total Protein Total Protein 4.8 L Albumin 2.3 L Geoyt-3-Xgalcedcr Zqwkl-3-Ntygxkrlw PEP Interpretation Triglycerides LDL Cholesterol Direct HDL Cholesterol Free T4 PTH Intact Urine WBC (Auto) Urine Creatinine Salicylates Acetaminophen Crossmatch 03/19/19 03/19/19 03/19/19 05:49 09:16 09:50 WBC RBC Hgb Hct MCV MCH MCHC RDW Plt Count Lymph % (Auto) Rich % (Auto) Eos % (Auto) Lymph # Rich # Eos # Seg Neutrophils % Seg Neuts % (Manual) Lymphocytes % (Manual) Monocytes % (Manual) Eosinophils % (Manual) Nucleated RBC % Seg Neutrophils # Seg Neutrophils # Man Lymphocytes # (Manual) Monocytes # (Manual) Eosinophils # (Manual) PT INR D-Dimer Heparin Anti-Xa Level POC ABG pH 7.222 L ABG pH POC ABG pCO2 56.6 H POC ABG pO2 ABG pO2 ABG HCO3 ABG O2 Saturation ABG Base Excess ABG Hemoglobin Oxyhemoglobin Sodium Potassium Chloride Carbon Dioxide BUN Creatinine Glucose POC Glucose 154 H Lactic Acid 2.70 H* Calcium Ionized Calcium Phosphorus Magnesium Iron TIBC Ferritin Total Bilirubin Direct Bilirubin AST ALT Alkaline Phosphatase Total Creatine Kinase CK-MB (CK-2) Troponin T C-Reactive Protein Serum Total Protein Total Protein Albumin Garsu-6-Oansxcqed Vqkie-2-Cmylpctxm PEP Interpretation Triglycerides LDL Cholesterol Direct HDL Cholesterol Free T4 PTH Intact Urine WBC (Auto) Urine Creatinine Salicylates Acetaminophen Crossmatch 03/19/19 03/19/19 03/19/19 09:50 11:28 17:58 WBC RBC Hgb Hct MCV MCH MCHC RDW Plt Count Lymph % (Auto) Rich % (Auto) Eos % (Auto) Lymph # Rich # Eos # Seg Neutrophils % Seg Neuts % (Manual) Lymphocytes % (Manual) Monocytes % (Manual) Eosinophils % (Manual) Nucleated RBC % Seg Neutrophils # Seg Neutrophils # Man Lymphocytes # (Manual) Monocytes # (Manual) Eosinophils # (Manual) PT INR D-Dimer Heparin Anti-Xa Level POC ABG pH 7.250 L ABG pH POC ABG pCO2 52.6 H POC ABG pO2 ABG pO2 ABG HCO3 ABG O2 Saturation ABG Base Excess ABG Hemoglobin Oxyhemoglobin Sodium Potassium Chloride Carbon Dioxide BUN Creatinine Glucose POC Glucose 160 H Lactic Acid Calcium Ionized Calcium Phosphorus Magnesium Iron TIBC Ferritin Total Bilirubin Direct Bilirubin AST ALT Alkaline Phosphatase Total Creatine Kinase 09365 H CK-MB (CK-2) Troponin T C-Reactive Protein Serum Total Protein Total Protein Albumin Asian-3-Jxcpdixhq Axolr-9-Pbfjlvild PEP Interpretation Triglycerides LDL Cholesterol Direct HDL Cholesterol Free T4 PTH Intact Urine WBC (Auto) Urine Creatinine Salicylates Acetaminophen Crossmatch 03/19/19 03/19/19 03/20/19 19:48 21:03 02:16 WBC RBC Hgb Hct MCV MCH MCHC RDW Plt Count Lymph % (Auto) Rich % (Auto) Eos % (Auto) Lymph # Rich # Eos # Seg Neutrophils % Seg Neuts % (Manual) Lymphocytes % (Manual) Monocytes % (Manual) Eosinophils % (Manual) Nucleated RBC % Seg Neutrophils # Seg Neutrophils # Man Lymphocytes # (Manual) Monocytes # (Manual) Eosinophils # (Manual) PT INR D-Dimer Heparin Anti-Xa Level POC ABG pH 7.279 L ABG pH POC ABG pCO2 50.3 H POC ABG pO2 129 H ABG pO2 ABG HCO3 ABG O2 Saturation ABG Base Excess ABG Hemoglobin Oxyhemoglobin Sodium Potassium Chloride Carbon Dioxide BUN Creatinine Glucose POC Glucose 119 H 119 H Lactic Acid Calcium Ionized Calcium Phosphorus Magnesium Iron TIBC Ferritin Total Bilirubin Direct Bilirubin AST ALT Alkaline Phosphatase Total Creatine Kinase CK-MB (CK-2) Troponin T C-Reactive Protein Serum Total Protein Total Protein Albumin Ppozg-0-Mjbqvavvc Tilcw-4-Xflxwlqso PEP Interpretation Triglycerides LDL Cholesterol Direct HDL Cholesterol Free T4 PTH Intact Urine WBC (Auto) Urine Creatinine Salicylates Acetaminophen Crossmatch 03/20/19 03/20/19 03/20/19 04:23 05:05 09:30 WBC 36.3 H RBC Hgb Hct MCV MCH MCHC RDW 15.5 H Plt Count 29 L Lymph % (Auto) Rich % (Auto) Eos % (Auto) Lymph # Rich # Eos # Seg Neutrophils % Seg Neuts % (Manual) Lymphocytes % (Manual) Monocytes % (Manual) Eosinophils % (Manual) Nucleated RBC % Seg Neutrophils # Seg Neutrophils # Man Lymphocytes # (Manual) Monocytes # (Manual) Eosinophils # (Manual) PT INR D-Dimer Heparin Anti-Xa Level POC ABG pH ABG pH POC ABG pCO2 POC ABG pO2 280 H ABG pO2 ABG HCO3 ABG O2 Saturation ABG Base Excess ABG Hemoglobin Oxyhemoglobin Sodium Potassium Chloride Carbon Dioxide BUN Creatinine Glucose POC Glucose 115 H Lactic Acid Calcium Ionized Calcium Phosphorus Magnesium Iron TIBC Ferritin Total Bilirubin Direct Bilirubin AST ALT Alkaline Phosphatase Total Creatine Kinase CK-MB (CK-2) Troponin T C-Reactive Protein Serum Total Protein Total Protein Albumin Psekt-8-Gdwcfxjxr Mbbda-2-Giwkfixme PEP Interpretation Triglycerides LDL Cholesterol Direct HDL Cholesterol Free T4 PTH Intact Urine WBC (Auto) Urine Creatinine Salicylates Acetaminophen Crossmatch 03/20/19 03/20/19 03/20/19 09:30 09:30 11:34 WBC RBC Hgb Hct MCV MCH MCHC RDW Plt Count Lymph % (Auto) Rich % (Auto) Eos % (Auto) Lymph # Rich # Eos # Seg Neutrophils % Seg Neuts % (Manual) Lymphocytes % (Manual) Monocytes % (Manual) Eosinophils % (Manual) Nucleated RBC % Seg Neutrophils # Seg Neutrophils # Man Lymphocytes # (Manual) Monocytes # (Manual) Eosinophils # (Manual) PT INR D-Dimer Heparin Anti-Xa Level POC ABG pH ABG pH POC ABG pCO2 POC ABG pO2 ABG pO2 ABG HCO3 ABG O2 Saturation ABG Base Excess ABG Hemoglobin Oxyhemoglobin Sodium 131 L Potassium Chloride 92.3 L Carbon Dioxide 20 L BUN 68 H Creatinine 6.1 H Glucose 164 H POC Glucose 141 H Lactic Acid Calcium 5.3 L* Ionized Calcium Phosphorus Magnesium Iron TIBC Ferritin Total Bilirubin 9.50 H Direct Bilirubin AST 381 H ALT 116 H Alkaline Phosphatase 255 H Total Creatine Kinase 72917 H CK-MB (CK-2) Troponin T C-Reactive Protein Serum Total Protein Total Protein 5.1 L Albumin 2.3 L Ipnun-3-Tsodjtmqi Qpnid-8-Hgkpdmiqf PEP Interpretation Triglycerides LDL Cholesterol Direct HDL Cholesterol Free T4 PTH Intact Urine WBC (Auto) Urine Creatinine Salicylates Acetaminophen Crossmatch 03/20/19 03/20/19 03/20/19 14:41 14:45 18:50 WBC RBC Hgb Hct MCV MCH MCHC RDW Plt Count Lymph % (Auto) Rich % (Auto) Eos % (Auto) Lymph # Rich # Eos # Seg Neutrophils % Seg Neuts % (Manual) Lymphocytes % (Manual) Monocytes % (Manual) Eosinophils % (Manual) Nucleated RBC % Seg Neutrophils # Seg Neutrophils # Man Lymphocytes # (Manual) Monocytes # (Manual) Eosinophils # (Manual) PT INR D-Dimer Heparin Anti-Xa Level POC ABG pH ABG pH POC ABG pCO2 POC ABG pO2 ABG pO2 ABG HCO3 ABG O2 Saturation ABG Base Excess ABG Hemoglobin Oxyhemoglobin Sodium Potassium Chloride Carbon Dioxide BUN Creatinine Glucose POC Glucose 117 H Lactic Acid 2.90 H* Calcium Ionized Calcium Phosphorus Magnesium Iron TIBC Ferritin Total Bilirubin Direct Bilirubin AST ALT Alkaline Phosphatase Total Creatine Kinase CK-MB (CK-2) Troponin T C-Reactive Protein 13.30 H Serum Total Protein Total Protein Albumin Gujev-4-Vvklizjjd Zdwoy-0-Wqorivrmu PEP Interpretation Triglycerides LDL Cholesterol Direct HDL Cholesterol Free T4 PTH Intact Urine WBC (Auto) Urine Creatinine Salicylates Acetaminophen Crossmatch 03/20/19 03/21/19 03/21/19 21:55 04:26 04:26 WBC 37.8 H RBC Hgb Hct MCV MCH MCHC RDW 15.4 H Plt Count 36 L Lymph % (Auto) Rich % (Auto) Eos % (Auto) Lymph # Rich # Eos # Seg Neutrophils % Seg Neuts % (Manual) 93.0 H Lymphocytes % (Manual) 3.0 L Monocytes % (Manual) Eosinophils % (Manual) Nucleated RBC % 1.0 H Seg Neutrophils # 34.6 H Seg Neutrophils # Man 35.2 H Lymphocytes # (Manual) 1.1 L Monocytes # (Manual) Eosinophils # (Manual) PT INR D-Dimer Heparin Anti-Xa Level POC ABG pH ABG pH POC ABG pCO2 POC ABG pO2 ABG pO2 ABG HCO3 ABG O2 Saturation ABG Base Excess ABG Hemoglobin Oxyhemoglobin Sodium 131 L Potassium Chloride 90.7 L Carbon Dioxide 21 L BUN 69 H Creatinine 5.7 H Glucose 170 H POC Glucose 128 H Lactic Acid Calcium 6.1 L D Ionized Calcium Phosphorus Magnesium Iron TIBC Ferritin Total Bilirubin 9.50 H Direct Bilirubin AST 308 H ALT 124 H Alkaline Phosphatase 327 H Total Creatine Kinase 44534 H CK-MB (CK-2) Troponin T C-Reactive Protein Serum Total Protein Total Protein 5.7 L Albumin 2.6 L Avkih-9-Iwfmqhzqf Abwap-1-Axthsdbfw PEP Interpretation Triglycerides LDL Cholesterol Direct HDL Cholesterol Free T4 PTH Intact Urine WBC (Auto) Urine Creatinine Salicylates Acetaminophen Crossmatch 03/21/19 03/21/19 03/21/19 05:17 05:39 08:29 WBC RBC Hgb Hct MCV MCH MCHC RDW Plt Count Lymph % (Auto) Rich % (Auto) Eos % (Auto) Lymph # Rich # Eos # Seg Neutrophils % Seg Neuts % (Manual) Lymphocytes % (Manual) Monocytes % (Manual) Eosinophils % (Manual) Nucleated RBC % Seg Neutrophils # Seg Neutrophils # Man Lymphocytes # (Manual) Monocytes # (Manual) Eosinophils # (Manual) PT INR D-Dimer Heparin Anti-Xa Level POC ABG pH ABG pH POC ABG pCO2 POC ABG pO2 209 H ABG pO2 ABG HCO3 ABG O2 Saturation ABG Base Excess ABG Hemoglobin Oxyhemoglobin Sodium Potassium Chloride Carbon Dioxide BUN Creatinine Glucose POC Glucose 145 H Lactic Acid Calcium Ionized Calcium Phosphorus Magnesium Iron TIBC Ferritin Total Bilirubin Direct Bilirubin AST ALT Alkaline Phosphatase Total Creatine Kinase 96795 H CK-MB (CK-2) Troponin T C-Reactive Protein Serum Total Protein Total Protein Albumin Eucpl-0-Zlwgxgqos Lulkj-9-Vupyakcok PEP Interpretation Triglycerides LDL Cholesterol Direct HDL Cholesterol Free T4 PTH Intact Urine WBC (Auto) Urine Creatinine Salicylates Acetaminophen Crossmatch 03/21/19 03/21/19 03/21/19 08:29 11:43 12:00 WBC RBC Hgb Hct MCV MCH MCHC RDW Plt Count Lymph % (Auto) Rich % (Auto) Eos % (Auto) Lymph # Rich # Eos # Seg Neutrophils % Seg Neuts % (Manual) Lymphocytes % (Manual) Monocytes % (Manual) Eosinophils % (Manual) Nucleated RBC % Seg Neutrophils # Seg Neutrophils # Man Lymphocytes # (Manual) Monocytes # (Manual) Eosinophils # (Manual) PT INR D-Dimer Heparin Anti-Xa Level POC ABG pH ABG pH POC ABG pCO2 POC ABG pO2 ABG pO2 ABG HCO3 ABG O2 Saturation ABG Base Excess ABG Hemoglobin Oxyhemoglobin Sodium Potassium Chloride Carbon Dioxide BUN Creatinine Glucose POC Glucose 123 H Lactic Acid 2.60 H* 2.20 H* Calcium Ionized Calcium Phosphorus Magnesium Iron TIBC Ferritin Total Bilirubin Direct Bilirubin AST ALT Alkaline Phosphatase Total Creatine Kinase CK-MB (CK-2) Troponin T C-Reactive Protein Serum Total Protein Total Protein Albumin Dxdko-5-Lmodnbcgd Qvcjk-4-Bmlnlohqt PEP Interpretation Triglycerides LDL Cholesterol Direct HDL Cholesterol Free T4 PTH Intact Urine WBC (Auto) Urine Creatinine Salicylates Acetaminophen Crossmatch 03/21/19 03/21/19 03/21/19 14:11 18:28 19:32 WBC RBC Hgb Hct MCV MCH MCHC RDW Plt Count Lymph % (Auto) Rich % (Auto) Eos % (Auto) Lymph # Rich # Eos # Seg Neutrophils % Seg Neuts % (Manual) Lymphocytes % (Manual) Monocytes % (Manual) Eosinophils % (Manual) Nucleated RBC % Seg Neutrophils # Seg Neutrophils # Man Lymphocytes # (Manual) Monocytes # (Manual) Eosinophils # (Manual) PT INR D-Dimer Heparin Anti-Xa Level POC ABG pH 7.293 L ABG pH POC ABG pCO2 POC ABG pO2 ABG pO2 ABG HCO3 ABG O2 Saturation ABG Base Excess ABG Hemoglobin Oxyhemoglobin Sodium Potassium Chloride Carbon Dioxide BUN Creatinine Glucose POC Glucose 153 H Lactic Acid 2.10 H* Calcium Ionized Calcium Phosphorus Magnesium Iron TIBC Ferritin Total Bilirubin Direct Bilirubin AST ALT Alkaline Phosphatase Total Creatine Kinase CK-MB (CK-2) Troponin T C-Reactive Protein Serum Total Protein Total Protein Albumin Fuued-2-Ughjvaptd Ssgwh-3-Mgafaqail PEP Interpretation Triglycerides LDL Cholesterol Direct HDL Cholesterol Free T4 PTH Intact Urine WBC (Auto) Urine Creatinine Salicylates Acetaminophen Crossmatch 03/21/19 03/22/19 03/22/19 23:38 05:08 05:51 WBC RBC Hgb Hct MCV MCH MCHC RDW Plt Count Lymph % (Auto) Rich % (Auto) Eos % (Auto) Lymph # Rich # Eos # Seg Neutrophils % Seg Neuts % (Manual) Lymphocytes % (Manual) Monocytes % (Manual) Eosinophils % (Manual) Nucleated RBC % Seg Neutrophils # Seg Neutrophils # Man Lymphocytes # (Manual) Monocytes # (Manual) Eosinophils # (Manual) PT INR D-Dimer Heparin Anti-Xa Level POC ABG pH 7.283 L ABG pH POC ABG pCO2 POC ABG pO2 53 L ABG pO2 ABG HCO3 ABG O2 Saturation ABG Base Excess ABG Hemoglobin Oxyhemoglobin Sodium Potassium Chloride Carbon Dioxide BUN Creatinine Glucose POC Glucose 149 H 131 H Lactic Acid Calcium Ionized Calcium Phosphorus Magnesium Iron TIBC Ferritin Total Bilirubin Direct Bilirubin AST ALT Alkaline Phosphatase Total Creatine Kinase CK-MB (CK-2) Troponin T C-Reactive Protein Serum Total Protein Total Protein Albumin Udriw-5-Andiuvxak Tfgfy-5-Yuncghbda PEP Interpretation Triglycerides LDL Cholesterol Direct HDL Cholesterol Free T4 PTH Intact Urine WBC (Auto) Urine Creatinine Salicylates Acetaminophen Crossmatch 03/22/19 03/22/19 03/22/19 08:00 08:00 18:19 WBC 36.7 H RBC Hgb 11.0 L Hct 33.5 L MCV MCH MCHC RDW 15.5 H Plt Count 43 L Lymph % (Auto) Rich % (Auto) Eos % (Auto) Lymph # Rich # Eos # Seg Neutrophils % Seg Neuts % (Manual) 87.0 H Lymphocytes % (Manual) 7.0 L Monocytes % (Manual) Eosinophils % (Manual) Nucleated RBC % Seg Neutrophils # Seg Neutrophils # Man 31.9 H Lymphocytes # (Manual) Monocytes # (Manual) Eosinophils # (Manual) PT INR D-Dimer Heparin Anti-Xa Level POC ABG pH ABG pH POC ABG pCO2 46.4 H POC ABG pO2 108 H ABG pO2 ABG HCO3 ABG O2 Saturation ABG Base Excess ABG Hemoglobin Oxyhemoglobin Sodium 132 L Potassium 5.6 H Chloride 89.6 L Carbon Dioxide 20 L BUN 101 H Creatinine 7.4 H Glucose 124 H POC Glucose Lactic Acid Calcium 5.2 L* Ionized Calcium Phosphorus Magnesium Iron TIBC Ferritin Total Bilirubin 2.80 H Direct Bilirubin AST 119 H ALT 86 H Alkaline Phosphatase 245 H Total Creatine Kinase CK-MB (CK-2) Troponin T C-Reactive Protein Serum Total Protein Total Protein 5.6 L Albumin 2.5 L Xoqzq-3-Zeylhkhxi Zsndc-9-Zsfqrfnds PEP Interpretation Triglycerides LDL Cholesterol Direct HDL Cholesterol Free T4 PTH Intact Urine WBC (Auto) Urine Creatinine Salicylates Acetaminophen Crossmatch 03/22/19 03/23/19 03/23/19 20:37 04:49 05:28 WBC 35.9 H RBC Hgb 10.8 L Hct 33.2 L MCV MCH MCHC RDW 15.5 H Plt Count 49 L Lymph % (Auto) Rich % (Auto) Eos % (Auto) Lymph # Rich # Eos # Seg Neutrophils % Seg Neuts % (Manual) 81.0 H Lymphocytes % (Manual) 3.5 L Monocytes % (Manual) Eosinophils % (Manual) Nucleated RBC % Seg Neutrophils # Seg Neutrophils # Man 29.1 H Lymphocytes # (Manual) Monocytes # (Manual) 1.4 H Eosinophils # (Manual) PT INR D-Dimer Heparin Anti-Xa Level POC ABG pH 7.296 L ABG pH POC ABG pCO2 46.2 H POC ABG pO2 ABG pO2 ABG HCO3 ABG O2 Saturation ABG Base Excess ABG Hemoglobin Oxyhemoglobin Sodium 129 L Potassium 5.2 H Chloride 91.1 L Carbon Dioxide BUN 91 H Creatinine 6.6 H Glucose 190 H POC Glucose Lactic Acid Calcium 5.3 L* Ionized Calcium Phosphorus Magnesium Iron TIBC Ferritin Total Bilirubin 1.80 H Direct Bilirubin AST 80 H ALT 62 H Alkaline Phosphatase 209 H Total Creatine Kinase 9758 H CK-MB (CK-2) Troponin T C-Reactive Protein Serum Total Protein Total Protein 5.2 L Albumin 2.2 L Jeclo-3-Fupanddxz Ckgjy-3-Ntekerlxd PEP Interpretation Triglycerides LDL Cholesterol Direct HDL Cholesterol Free T4 PTH Intact Urine WBC (Auto) Urine Creatinine Salicylates Acetaminophen Crossmatch 03/23/19 03/23/19 03/23/19 05:28 05:31 11:33 WBC 29.7 H RBC 3.59 L Hgb 10.1 L Hct 31.1 L MCV MCH MCHC RDW 15.4 H Plt Count 47 L Lymph % (Auto) Rich % (Auto) Eos % (Auto) Lymph # Rich # Eos # Seg Neutrophils % Seg Neuts % (Manual) 89.0 H Lymphocytes % (Manual) 6.0 L Monocytes % (Manual) Eosinophils % (Manual) Nucleated RBC % 1.0 H Seg Neutrophils # Seg Neutrophils # Man 26.4 H Lymphocytes # (Manual) Monocytes # (Manual) Eosinophils # (Manual) PT INR D-Dimer Heparin Anti-Xa Level POC ABG pH ABG pH POC ABG pCO2 POC ABG pO2 ABG pO2 ABG HCO3 ABG O2 Saturation ABG Base Excess ABG Hemoglobin Oxyhemoglobin Sodium Potassium Chloride Carbon Dioxide BUN Creatinine Glucose POC Glucose 122 H 113 H Lactic Acid Calcium Ionized Calcium Phosphorus Magnesium Iron TIBC Ferritin Total Bilirubin Direct Bilirubin AST ALT Alkaline Phosphatase Total Creatine Kinase CK-MB (CK-2) Troponin T C-Reactive Protein Serum Total Protein Total Protein Albumin Okyiq-0-Leuxdhgrn Jxubf-3-Isueswmlr PEP Interpretation Triglycerides LDL Cholesterol Direct HDL Cholesterol Free T4 PTH Intact Urine WBC (Auto) Urine Creatinine Salicylates Acetaminophen Crossmatch 03/23/19 03/24/19 03/24/19 17:47 00:00 04:50 WBC 35.0 H RBC Hgb 10.4 L Hct 32.4 L MCV MCH MCHC RDW Plt Count 60 L Lymph % (Auto) Rich % (Auto) Eos % (Auto) Lymph # Rich # Eos # Seg Neutrophils % Seg Neuts % (Manual) 93.0 H Lymphocytes % (Manual) 5.0 L Monocytes % (Manual) Eosinophils % (Manual) Nucleated RBC % 7.0 H Seg Neutrophils # Seg Neutrophils # Man 32.6 H Lymphocytes # (Manual) Monocytes # (Manual) Eosinophils # (Manual) PT INR D-Dimer Heparin Anti-Xa Level POC ABG pH ABG pH POC ABG pCO2 POC ABG pO2 ABG pO2 ABG HCO3 ABG O2 Saturation ABG Base Excess ABG Hemoglobin Oxyhemoglobin Sodium Potassium Chloride Carbon Dioxide BUN Creatinine Glucose POC Glucose 111 H 108 H Lactic Acid Calcium Ionized Calcium Phosphorus Magnesium Iron TIBC Ferritin Total Bilirubin Direct Bilirubin AST ALT Alkaline Phosphatase Total Creatine Kinase CK-MB (CK-2) Troponin T C-Reactive Protein Serum Total Protein Total Protein Albumin Dnvga-7-Qcrglcacp Fmdeh-5-Htjoktmaf PEP Interpretation Triglycerides LDL Cholesterol Direct HDL Cholesterol Free T4 PTH Intact Urine WBC (Auto) Urine Creatinine Salicylates Acetaminophen Crossmatch 03/24/19 03/24/19 03/24/19 04:50 05:06 12:55 WBC RBC Hgb Hct MCV MCH MCHC RDW Plt Count Lymph % (Auto) Rich % (Auto) Eos % (Auto) Lymph # Rich # Eos # Seg Neutrophils % Seg Neuts % (Manual) Lymphocytes % (Manual) Monocytes % (Manual) Eosinophils % (Manual) Nucleated RBC % Seg Neutrophils # Seg Neutrophils # Man Lymphocytes # (Manual) Monocytes # (Manual) Eosinophils # (Manual) PT INR D-Dimer Heparin Anti-Xa Level POC ABG pH ABG pH POC ABG pCO2 POC ABG pO2 ABG pO2 ABG HCO3 ABG O2 Saturation ABG Base Excess ABG Hemoglobin Oxyhemoglobin Sodium 134 L Potassium 5.1 H Chloride 95.3 L Carbon Dioxide 21 L BUN 85 H Creatinine 6.4 H Glucose 109 H POC Glucose 112 H 110 H Lactic Acid Calcium 5.8 L* Ionized Calcium Phosphorus Magnesium Iron TIBC Ferritin Total Bilirubin Direct Bilirubin AST ALT Alkaline Phosphatase Total Creatine Kinase 5747 H CK-MB (CK-2) Troponin T C-Reactive Protein Serum Total Protein Total Protein Albumin Fyksm-2-Ozhwrsmyz Sabvm-7-Hiwqobban PEP Interpretation Triglycerides LDL Cholesterol Direct HDL Cholesterol Free T4 PTH Intact Urine WBC (Auto) Urine Creatinine Salicylates Acetaminophen Crossmatch 03/24/19 03/25/19 03/25/19 23:29 05:00 05:00 WBC RBC Hgb Hct MCV MCH MCHC RDW Plt Count Lymph % (Auto) Rich % (Auto) Eos % (Auto) Lymph # Rich # Eos # Seg Neutrophils % Seg Neuts % (Manual) Lymphocytes % (Manual) Monocytes % (Manual) Eosinophils % (Manual) Nucleated RBC % Seg Neutrophils # Seg Neutrophils # Man Lymphocytes # (Manual) Monocytes # (Manual) Eosinophils # (Manual) PT INR D-Dimer Heparin Anti-Xa Level POC ABG pH ABG pH POC ABG pCO2 POC ABG pO2 ABG pO2 ABG HCO3 ABG O2 Saturation ABG Base Excess ABG Hemoglobin Oxyhemoglobin Sodium 133 L Potassium Chloride 94.0 L Carbon Dioxide 21 L BUN 81 H Creatinine 6.4 H Glucose POC Glucose 109 H Lactic Acid Calcium 5.5 L* Ionized Calcium Phosphorus Magnesium Iron TIBC Ferritin Total Bilirubin Direct Bilirubin AST 80 H ALT Alkaline Phosphatase 202 H Total Creatine Kinase 3589 H CK-MB (CK-2) Troponin T C-Reactive Protein Serum Total Protein Total Protein 5.3 L Albumin 2.4 L Sopaz-5-Rnsashpnk Jpprk-3-Sqmlynjtu PEP Interpretation Triglycerides LDL Cholesterol Direct HDL Cholesterol Free T4 PTH Intact 329.9 H Urine WBC (Auto) Urine Creatinine Salicylates Acetaminophen Crossmatch 03/25/19 03/25/19 03/26/19 05:00 06:30 04:30 WBC 23.3 H RBC 3.61 L Hgb 10.2 L Hct 31.2 L MCV MCH MCHC RDW Plt Count 57 L Lymph % (Auto) Rich % (Auto) Eos % (Auto) Lymph # Rich # Eos # Seg Neutrophils % Seg Neuts % (Manual) 92.0 H Lymphocytes % (Manual) 6.0 L Monocytes % (Manual) Eosinophils % (Manual) Nucleated RBC % Seg Neutrophils # Seg Neutrophils # Man 21.4 H Lymphocytes # (Manual) Monocytes # (Manual) Eosinophils # (Manual) PT INR D-Dimer Heparin Anti-Xa Level POC ABG pH ABG pH 7.326 L POC ABG pCO2 POC ABG pO2 ABG pO2 109.5 H 137.4 H ABG HCO3 18.8 L 18.6 L ABG O2 Saturation ABG Base Excess -4.4 L -6.8 L ABG Hemoglobin 10.1 L 9.9 L Oxyhemoglobin Sodium Potassium Chloride Carbon Dioxide BUN Creatinine Glucose POC Glucose Lactic Acid Calcium Ionized Calcium Phosphorus Magnesium Iron TIBC Ferritin Total Bilirubin Direct Bilirubin AST ALT Alkaline Phosphatase Total Creatine Kinase CK-MB (CK-2) Troponin T C-Reactive Protein Serum Total Protein Total Protein Albumin Zthik-0-Mpjtjgavq Gncfg-3-Auhwotmtr PEP Interpretation Triglycerides LDL Cholesterol Direct HDL Cholesterol Free T4 PTH Intact Urine WBC (Auto) Urine Creatinine Salicylates Acetaminophen Crossmatch 03/26/19 03/26/19 03/26/19 23:22 Unknown Unknown WBC 19.5 H RBC 3.44 L Hgb 9.8 L Hct 29.9 L MCV MCH MCHC RDW Plt Count 85 L Lymph % (Auto) Rich % (Auto) Eos % (Auto) Lymph # Rich # Eos # Seg Neutrophils % Seg Neuts % (Manual) 95.0 H Lymphocytes % (Manual) 3.0 L Monocytes % (Manual) Eosinophils % (Manual) Nucleated RBC % Seg Neutrophils # Seg Neutrophils # Man 18.5 H Lymphocytes # (Manual) 0.6 L Monocytes # (Manual) Eosinophils # (Manual) PT INR D-Dimer Heparin Anti-Xa Level POC ABG pH ABG pH POC ABG pCO2 POC ABG pO2 ABG pO2 ABG HCO3 ABG O2 Saturation ABG Base Excess ABG Hemoglobin Oxyhemoglobin Sodium 135 L Potassium 5.2 H D Chloride 92.2 L Carbon Dioxide 18 L BUN 109 H Creatinine 8.5 H Glucose 117 H POC Glucose 69 L Lactic Acid Calcium 4.5 L* D Ionized Calcium Phosphorus Magnesium Iron TIBC Ferritin Total Bilirubin Direct Bilirubin AST ALT Alkaline Phosphatase Total Creatine Kinase 4527 H CK-MB (CK-2) Troponin T C-Reactive Protein Serum Total Protein Total Protein Albumin Cbrey-5-Tiezzdbnm Icnpa-4-Nyqbnczth PEP Interpretation Triglycerides LDL Cholesterol Direct HDL Cholesterol Free T4 PTH Intact Urine WBC (Auto) Urine Creatinine Salicylates Acetaminophen Crossmatch 03/27/19 03/27/19 03/27/19 04:30 04:30 09:00 WBC 19.2 H RBC 3.42 L Hgb 9.9 L Hct 30.0 L MCV MCH MCHC RDW Plt Count 84 L Lymph % (Auto) Rich % (Auto) Eos % (Auto) Lymph # Rich # Eos # Seg Neutrophils % Seg Neuts % (Manual) Lymphocytes % (Manual) Monocytes % (Manual) Eosinophils % (Manual) Nucleated RBC % Seg Neutrophils # Seg Neutrophils # Man Lymphocytes # (Manual) Monocytes # (Manual) Eosinophils # (Manual) PT INR D-Dimer Heparin Anti-Xa Level POC ABG pH ABG pH POC ABG pCO2 POC ABG pO2 ABG pO2 ABG HCO3 ABG O2 Saturation ABG Base Excess ABG Hemoglobin Oxyhemoglobin Sodium 135 L Potassium Chloride 93.5 L Carbon Dioxide BUN 84 H Creatinine 7.1 H Glucose POC Glucose Lactic Acid Calcium 5.0 L* Ionized Calcium Phosphorus Magnesium Iron TIBC Ferritin Total Bilirubin Direct Bilirubin AST 78 H ALT Alkaline Phosphatase 135 H Total Creatine Kinase 4677 H CK-MB (CK-2) Troponin T C-Reactive Protein Serum Total Protein Total Protein 4.8 L Albumin 2.3 L Vbpwd-3-Hlkyrdpif Kyuxp-4-Hqjijwuaq PEP Interpretation Triglycerides 409 H LDL Cholesterol Direct HDL Cholesterol Free T4 PTH Intact Urine WBC (Auto) Urine Creatinine Salicylates Acetaminophen Crossmatch 03/27/19 03/27/19 03/27/19 12:37 14:15 14:15 WBC RBC Hgb 9.7 L Hct 29.5 L MCV MCH MCHC RDW Plt Count 87 L Lymph % (Auto) Rich % (Auto) Eos % (Auto) Lymph # Rich # Eos # Seg Neutrophils % Seg Neuts % (Manual) Lymphocytes % (Manual) Monocytes % (Manual) Eosinophils % (Manual) Nucleated RBC % Seg Neutrophils # Seg Neutrophils # Man Lymphocytes # (Manual) Monocytes # (Manual) Eosinophils # (Manual) PT 15.9 H INR 1.30 H D-Dimer Heparin Anti-Xa Level POC ABG pH ABG pH POC ABG pCO2 POC ABG pO2 ABG pO2 ABG HCO3 ABG O2 Saturation ABG Base Excess ABG Hemoglobin Oxyhemoglobin Sodium Potassium Chloride Carbon Dioxide BUN Creatinine Glucose POC Glucose 129 H Lactic Acid Calcium Ionized Calcium Phosphorus Magnesium Iron TIBC Ferritin Total Bilirubin Direct Bilirubin AST ALT Alkaline Phosphatase Total Creatine Kinase CK-MB (CK-2) Troponin T C-Reactive Protein Serum Total Protein Total Protein Albumin Emgcd-4-Zoafxwdjn Xxjqt-6-Fuynypney PEP Interpretation Triglycerides LDL Cholesterol Direct HDL Cholesterol Free T4 PTH Intact Urine WBC (Auto) Urine Creatinine Salicylates Acetaminophen Crossmatch 03/27/19 03/27/19 03/27/19 18:00 19:22 19:23 WBC RBC Hgb Hct MCV MCH MCHC RDW Plt Count Lymph % (Auto) Rich % (Auto) Eos % (Auto) Lymph # Rich # Eos # Seg Neutrophils % Seg Neuts % (Manual) Lymphocytes % (Manual) Monocytes % (Manual) Eosinophils % (Manual) Nucleated RBC % Seg Neutrophils # Seg Neutrophils # Man Lymphocytes # (Manual) Monocytes # (Manual) Eosinophils # (Manual) PT INR D-Dimer Heparin Anti-Xa Level < 0.10 L POC ABG pH ABG pH POC ABG pCO2 POC ABG pO2 ABG pO2 ABG HCO3 ABG O2 Saturation ABG Base Excess ABG Hemoglobin Oxyhemoglobin Sodium Potassium Chloride Carbon Dioxide BUN Creatinine Glucose POC Glucose 121 H Lactic Acid Calcium Ionized Calcium Phosphorus Magnesium Iron TIBC Ferritin Total Bilirubin Direct Bilirubin AST ALT Alkaline Phosphatase Total Creatine Kinase 4517 H CK-MB (CK-2) Troponin T C-Reactive Protein Serum Total Protein Total Protein Albumin Cqzaj-4-Khnjpzpck Pvpxd-2-Aizmrvmvc PEP Interpretation Triglycerides LDL Cholesterol Direct HDL Cholesterol Free T4 PTH Intact Urine WBC (Auto) Urine Creatinine Salicylates Acetaminophen Crossmatch 03/27/19 03/27/19 03/28/19 22:10 23:52 03:49 WBC RBC Hgb Hct MCV MCH MCHC RDW Plt Count Lymph % (Auto) Rich % (Auto) Eos % (Auto) Lymph # Rich # Eos # Seg Neutrophils % Seg Neuts % (Manual) Lymphocytes % (Manual) Monocytes % (Manual) Eosinophils % (Manual) Nucleated RBC % Seg Neutrophils # Seg Neutrophils # Man Lymphocytes # (Manual) Monocytes # (Manual) Eosinophils # (Manual) PT INR D-Dimer Heparin Anti-Xa Level POC ABG pH 7.338 L ABG pH POC ABG pCO2 33.1 L POC ABG pO2 ABG pO2 ABG HCO3 ABG O2 Saturation ABG Base Excess ABG Hemoglobin Oxyhemoglobin Sodium Potassium Chloride Carbon Dioxide BUN Creatinine Glucose POC Glucose 113 H 117 H Lactic Acid Calcium Ionized Calcium Phosphorus Magnesium Iron TIBC Ferritin Total Bilirubin Direct Bilirubin AST ALT Alkaline Phosphatase Total Creatine Kinase CK-MB (CK-2) Troponin T C-Reactive Protein Serum Total Protein Total Protein Albumin Bzovt-2-Orvwurlgj Udsok-3-Gmdbrkmwj PEP Interpretation Triglycerides LDL Cholesterol Direct HDL Cholesterol Free T4 PTH Intact Urine WBC (Auto) Urine Creatinine Salicylates Acetaminophen Crossmatch 03/28/19 03/28/19 03/28/19 05:13 05:13 06:18 WBC RBC Hgb Hct MCV MCH MCHC RDW Plt Count Lymph % (Auto) Rich % (Auto) Eos % (Auto) Lymph # Rich # Eos # Seg Neutrophils % Seg Neuts % (Manual) Lymphocytes % (Manual) Monocytes % (Manual) Eosinophils % (Manual) Nucleated RBC % Seg Neutrophils # Seg Neutrophils # Man Lymphocytes # (Manual) Monocytes # (Manual) Eosinophils # (Manual) PT INR D-Dimer Heparin Anti-Xa Level 0.23 L POC ABG pH ABG pH POC ABG pCO2 POC ABG pO2 ABG pO2 ABG HCO3 ABG O2 Saturation ABG Base Excess ABG Hemoglobin Oxyhemoglobin Sodium 135 L Potassium 5.5 H D Chloride 95.1 L Carbon Dioxide 16 L D BUN 129 H Creatinine 9.3 H Glucose 158 H POC Glucose 202 H Lactic Acid Calcium 4.0 L* D Ionized Calcium Phosphorus 12.40 H Magnesium Iron TIBC Ferritin Total Bilirubin Direct Bilirubin AST ALT Alkaline Phosphatase Total Creatine Kinase 4266 H CK-MB (CK-2) Troponin T C-Reactive Protein Serum Total Protein Total Protein Albumin Vwyfx-4-Vvrgmruql Lfxkl-7-Wnnibsrvo PEP Interpretation Triglycerides LDL Cholesterol Direct HDL Cholesterol Free T4 PTH Intact Urine WBC (Auto) Urine Creatinine Salicylates Acetaminophen Crossmatch 03/28/19 03/28/19 03/28/19 08:25 10:00 12:00 WBC RBC Hgb 4.9 L* D Hct 15.4 L* D MCV MCH MCHC RDW Plt Count Lymph % (Auto) Rich % (Auto) Eos % (Auto) Lymph # Rich # Eos # Seg Neutrophils % Seg Neuts % (Manual) Lymphocytes % (Manual) Monocytes % (Manual) Eosinophils % (Manual) Nucleated RBC % Seg Neutrophils # Seg Neutrophils # Man Lymphocytes # (Manual) Monocytes # (Manual) Eosinophils # (Manual) PT 17.9 H INR 1.52 H D-Dimer 4845.98 H Heparin Anti-Xa Level POC ABG pH ABG pH POC ABG pCO2 POC ABG pO2 ABG pO2 ABG HCO3 ABG O2 Saturation ABG Base Excess ABG Hemoglobin Oxyhemoglobin Sodium Potassium Chloride Carbon Dioxide BUN Creatinine Glucose POC Glucose Lactic Acid Calcium Ionized Calcium Phosphorus Magnesium Iron TIBC Ferritin Total Bilirubin Direct Bilirubin AST ALT Alkaline Phosphatase Total Creatine Kinase CK-MB (CK-2) Troponin T C-Reactive Protein Serum Total Protein Total Protein Albumin Egssr-4-Roifbcbub Pnkgg-3-Sstwmpokn PEP Interpretation Triglycerides LDL Cholesterol Direct HDL Cholesterol Free T4 PTH Intact Urine WBC (Auto) Urine Creatinine Salicylates Acetaminophen Crossmatch See Detail 03/28/19 03/28/19 03/28/19 12:28 14:10 17:43 WBC RBC Hgb 5.9 L* Hct 18.3 L* MCV MCH MCHC RDW Plt Count Lymph % (Auto) Rich % (Auto) Eos % (Auto) Lymph # Rich # Eos # Seg Neutrophils % Seg Neuts % (Manual) Lymphocytes % (Manual) Monocytes % (Manual) Eosinophils % (Manual) Nucleated RBC % Seg Neutrophils # Seg Neutrophils # Man Lymphocytes # (Manual) Monocytes # (Manual) Eosinophils # (Manual) PT INR D-Dimer Heparin Anti-Xa Level POC ABG pH ABG pH POC ABG pCO2 POC ABG pO2 ABG pO2 ABG HCO3 ABG O2 Saturation ABG Base Excess ABG Hemoglobin Oxyhemoglobin Sodium Potassium Chloride Carbon Dioxide BUN Creatinine Glucose POC Glucose 153 H 159 H Lactic Acid Calcium Ionized Calcium Phosphorus Magnesium Iron TIBC Ferritin Total Bilirubin Direct Bilirubin AST ALT Alkaline Phosphatase Total Creatine Kinase CK-MB (CK-2) Troponin T C-Reactive Protein Serum Total Protein Total Protein Albumin Sneyj-1-Vomwliqex Ypidf-0-Glydvkswn PEP Interpretation Triglycerides LDL Cholesterol Direct HDL Cholesterol Free T4 PTH Intact Urine WBC (Auto) Urine Creatinine Salicylates Acetaminophen Crossmatch 03/28/19 03/28/19 03/28/19 18:10 Unknown 23:59 WBC 24.8 H RBC 3.42 L Hgb 10.2 L D Hct 31.1 L D MCV MCH MCHC RDW 15.4 H Plt Count 54 L Lymph % (Auto) Rich % (Auto) Eos % (Auto) Lymph # Rich # Eos # Seg Neutrophils % Seg Neuts % (Manual) 91.0 H Lymphocytes % (Manual) 8.0 L Monocytes % (Manual) Eosinophils % (Manual) Nucleated RBC % Seg Neutrophils # Seg Neutrophils # Man 22.6 H Lymphocytes # (Manual) Monocytes # (Manual) Eosinophils # (Manual) PT INR D-Dimer Heparin Anti-Xa Level POC ABG pH ABG pH POC ABG pCO2 POC ABG pO2 ABG pO2 ABG HCO3 ABG O2 Saturation ABG Base Excess ABG Hemoglobin Oxyhemoglobin Sodium Potassium 5.7 H Chloride Carbon Dioxide BUN Creatinine Glucose POC Glucose 107 H Lactic Acid Calcium Ionized Calcium Phosphorus Magnesium Iron TIBC Ferritin Total Bilirubin Direct Bilirubin AST ALT Alkaline Phosphatase Total Creatine Kinase CK-MB (CK-2) Troponin T C-Reactive Protein Serum Total Protein Total Protein Albumin Dimxd-1-Zvawhqjsp Elbca-9-Ccdpfggrr PEP Interpretation Triglycerides LDL Cholesterol Direct HDL Cholesterol Free T4 PTH Intact Urine WBC (Auto) Urine Creatinine Salicylates Acetaminophen Crossmatch 03/29/19 03/29/19 03/29/19 04:29 05:46 06:22 WBC RBC Hgb 8.6 L Hct 25.7 L MCV MCH MCHC RDW Plt Count 93 L Lymph % (Auto) Rich % (Auto) Eos % (Auto) Lymph # Rich # Eos # Seg Neutrophils % Seg Neuts % (Manual) Lymphocytes % (Manual) Monocytes % (Manual) Eosinophils % (Manual) Nucleated RBC % Seg Neutrophils # Seg Neutrophils # Man Lymphocytes # (Manual) Monocytes # (Manual) Eosinophils # (Manual) PT INR D-Dimer Heparin Anti-Xa Level POC ABG pH ABG pH POC ABG pCO2 32.2 L POC ABG pO2 ABG pO2 ABG HCO3 ABG O2 Saturation ABG Base Excess ABG Hemoglobin Oxyhemoglobin Sodium Potassium Chloride Carbon Dioxide BUN Creatinine Glucose POC Glucose 113 H Lactic Acid Calcium Ionized Calcium Phosphorus Magnesium Iron TIBC Ferritin Total Bilirubin Direct Bilirubin AST ALT Alkaline Phosphatase Total Creatine Kinase CK-MB (CK-2) Troponin T C-Reactive Protein Serum Total Protein Total Protein Albumin Wgmjn-3-Gflelsaof Bddck-8-Ymarffttn PEP Interpretation Triglycerides LDL Cholesterol Direct HDL Cholesterol Free T4 PTH Intact Urine WBC (Auto) Urine Creatinine Salicylates Acetaminophen Crossmatch 03/29/19 03/29/19 03/29/19 06:22 06:22 06:22 WBC 23.2 H RBC 2.91 L Hgb 8.6 L Hct 25.8 L MCV MCH MCHC RDW Plt Count 91 L Lymph % (Auto) Rich % (Auto) Eos % (Auto) Lymph # Rich # Eos # Seg Neutrophils % Seg Neuts % (Manual) Lymphocytes % (Manual) Monocytes % (Manual) Eosinophils % (Manual) Nucleated RBC % Seg Neutrophils # Seg Neutrophils # Man Lymphocytes # (Manual) Monocytes # (Manual) Eosinophils # (Manual) PT INR D-Dimer Heparin Anti-Xa Level POC ABG pH ABG pH POC ABG pCO2 POC ABG pO2 ABG pO2 ABG HCO3 ABG O2 Saturation ABG Base Excess ABG Hemoglobin Oxyhemoglobin Sodium 133 L Potassium Chloride 93.8 L Carbon Dioxide 18 L BUN 109 H Creatinine 7.4 H Glucose 124 H POC Glucose Lactic Acid Calcium 4.6 L* Ionized Calcium Phosphorus Magnesium Iron TIBC Ferritin Total Bilirubin Direct Bilirubin AST ALT Alkaline Phosphatase Total Creatine Kinase 3401 H CK-MB (CK-2) Troponin T C-Reactive Protein Serum Total Protein Total Protein Albumin Gdxps-0-Gjpwhkmkj Bkrbz-2-Wyauhlqoy PEP Interpretation Triglycerides 309 H LDL Cholesterol Direct HDL Cholesterol Free T4 PTH Intact Urine WBC (Auto) Urine Creatinine Salicylates Acetaminophen Crossmatch 03/29/19 03/29/19 03/29/19 11:48 11:48 18:24 WBC RBC Hgb 7.8 L Hct 23.2 L MCV MCH MCHC RDW Plt Count Lymph % (Auto) Rich % (Auto) Eos % (Auto) Lymph # Rich # Eos # Seg Neutrophils % Seg Neuts % (Manual) Lymphocytes % (Manual) Monocytes % (Manual) Eosinophils % (Manual) Nucleated RBC % Seg Neutrophils # Seg Neutrophils # Man Lymphocytes # (Manual) Monocytes # (Manual) Eosinophils # (Manual) PT 15.3 H INR 1.24 H D-Dimer Heparin Anti-Xa Level POC ABG pH ABG pH POC ABG pCO2 POC ABG pO2 ABG pO2 ABG HCO3 ABG O2 Saturation ABG Base Excess ABG Hemoglobin Oxyhemoglobin Sodium Potassium Chloride Carbon Dioxide BUN Creatinine Glucose POC Glucose 122 H Lactic Acid Calcium Ionized Calcium Phosphorus Magnesium Iron TIBC Ferritin Total Bilirubin Direct Bilirubin AST ALT Alkaline Phosphatase Total Creatine Kinase CK-MB (CK-2) Troponin T C-Reactive Protein Serum Total Protein Total Protein Albumin Ivjcc-6-Cozoxmuhd Wsyqc-7-Xxacjdodh PEP Interpretation Triglycerides LDL Cholesterol Direct HDL Cholesterol Free T4 PTH Intact Urine WBC (Auto) Urine Creatinine Salicylates Acetaminophen Crossmatch 03/30/19 03/30/19 03/30/19 00:40 04:31 05:04 WBC RBC Hgb 7.6 L Hct 23.0 L MCV MCH MCHC RDW Plt Count Lymph % (Auto) Rich % (Auto) Eos % (Auto) Lymph # Rich # Eos # Seg Neutrophils % Seg Neuts % (Manual) Lymphocytes % (Manual) Monocytes % (Manual) Eosinophils % (Manual) Nucleated RBC % Seg Neutrophils # Seg Neutrophils # Man Lymphocytes # (Manual) Monocytes # (Manual) Eosinophils # (Manual) PT INR D-Dimer Heparin Anti-Xa Level POC ABG pH 7.346 L ABG pH POC ABG pCO2 POC ABG pO2 62 L ABG pO2 ABG HCO3 ABG O2 Saturation ABG Base Excess ABG Hemoglobin Oxyhemoglobin Sodium Potassium Chloride Carbon Dioxide BUN 79 H Creatinine 6.4 H Glucose POC Glucose Lactic Acid Calcium 6.1 L D Ionized Calcium Phosphorus Magnesium Iron TIBC Ferritin Total Bilirubin Direct Bilirubin AST ALT Alkaline Phosphatase Total Creatine Kinase CK-MB (CK-2) Troponin T C-Reactive Protein Serum Total Protein Total Protein Albumin Oimaf-0-Tzjgectog Nvehx-8-Gwpykhdyv PEP Interpretation Triglycerides LDL Cholesterol Direct HDL Cholesterol Free T4 PTH Intact Urine WBC (Auto) Urine Creatinine Salicylates Acetaminophen Crossmatch 03/30/19 03/30/19 03/30/19 08:45 12:09 22:43 WBC 14.3 H RBC 2.33 L Hgb 7.0 L 7.4 L Hct 21.0 L 22.3 L MCV MCH MCHC RDW 15.6 H Plt Count 135 L Lymph % (Auto) Rich % (Auto) Eos % (Auto) Lymph # Rich # Eos # Seg Neutrophils % Seg Neuts % (Manual) Lymphocytes % (Manual) Monocytes % (Manual) Eosinophils % (Manual) Nucleated RBC % Seg Neutrophils # Seg Neutrophils # Man Lymphocytes # (Manual) Monocytes # (Manual) Eosinophils # (Manual) PT INR D-Dimer Heparin Anti-Xa Level POC ABG pH ABG pH POC ABG pCO2 POC ABG pO2 ABG pO2 ABG HCO3 ABG O2 Saturation ABG Base Excess ABG Hemoglobin Oxyhemoglobin Sodium Potassium Chloride Carbon Dioxide BUN Creatinine Glucose POC Glucose Lactic Acid Calcium Ionized Calcium 3.7 L Phosphorus Magnesium Iron TIBC Ferritin Total Bilirubin Direct Bilirubin AST ALT Alkaline Phosphatase Total Creatine Kinase CK-MB (CK-2) Troponin T C-Reactive Protein Serum Total Protein Total Protein Albumin Mryua-0-Ixhytycgd Euilt-9-Aaqggudlz PEP Interpretation Triglycerides LDL Cholesterol Direct HDL Cholesterol Free T4 PTH Intact Urine WBC (Auto) Urine Creatinine Salicylates Acetaminophen Crossmatch 03/30/19 03/30/19 03/31/19 23:38 Unknown 04:44 WBC 11.5 H RBC 2.40 L Hgb 7.3 L Hct 21.9 L MCV MCH MCHC RDW 15.4 H Plt Count Lymph % (Auto) 10.6 L Rich % (Auto) Eos % (Auto) Lymph # Rich # Eos # Seg Neutrophils % 81.7 H Seg Neuts % (Manual) Lymphocytes % (Manual) Monocytes % (Manual) Eosinophils % (Manual) Nucleated RBC % Seg Neutrophils # 9.4 H Seg Neutrophils # Man Lymphocytes # (Manual) Monocytes # (Manual) Eosinophils # (Manual) PT INR D-Dimer Heparin Anti-Xa Level POC ABG pH ABG pH POC ABG pCO2 POC ABG pO2 ABG pO2 ABG HCO3 ABG O2 Saturation ABG Base Excess ABG Hemoglobin Oxyhemoglobin Sodium Potassium Chloride Carbon Dioxide BUN Creatinine Glucose POC Glucose 155 H Lactic Acid Calcium Ionized Calcium Phosphorus Magnesium Iron TIBC Ferritin Total Bilirubin Direct Bilirubin 0.4 H AST 63 H ALT Alkaline Phosphatase Total Creatine Kinase CK-MB (CK-2) Troponin T C-Reactive Protein Serum Total Protein Total Protein 4.9 L Albumin 2.2 L Ciact-7-Cizjgufzj Qwrfg-1-Fxyohpsvu PEP Interpretation Triglycerides LDL Cholesterol Direct HDL Cholesterol Free T4 PTH Intact Urine WBC (Auto) Urine Creatinine Salicylates Acetaminophen Crossmatch 03/31/19 03/31/19 03/31/19 04:44 05:44 08:20 WBC RBC Hgb Hct MCV MCH MCHC RDW Plt Count Lymph % (Auto) Rich % (Auto) Eos % (Auto) Lymph # Rich # Eos # Seg Neutrophils % Seg Neuts % (Manual) Lymphocytes % (Manual) Monocytes % (Manual) Eosinophils % (Manual) Nucleated RBC % Seg Neutrophils # Seg Neutrophils # Man Lymphocytes # (Manual) Monocytes # (Manual) Eosinophils # (Manual) PT INR D-Dimer Heparin Anti-Xa Level POC ABG pH ABG pH POC ABG pCO2 53.5 H POC ABG pO2 62 L ABG pO2 ABG HCO3 ABG O2 Saturation ABG Base Excess ABG Hemoglobin Oxyhemoglobin Sodium 135 L Potassium Chloride 96.7 L Carbon Dioxide 19 L BUN 94 H Creatinine 7.8 H Glucose POC Glucose Lactic Acid Calcium 5.3 L* Ionized Calcium Phosphorus 8.20 H Magnesium Iron TIBC Ferritin Total Bilirubin Direct Bilirubin 0.4 H AST 60 H ALT Alkaline Phosphatase Total Creatine Kinase CK-MB (CK-2) Troponin T C-Reactive Protein Serum Total Protein Total Protein 4.8 L Albumin 2.1 L Pqyfo-7-Vhscrvjrt Slmxl-0-Squoffvkg PEP Interpretation Triglycerides LDL Cholesterol Direct HDL Cholesterol Free T4 PTH Intact Urine WBC (Auto) Urine Creatinine Salicylates Acetaminophen Crossmatch 03/31/19 04/01/19 04/01/19 22:14 04:27 04:27 WBC RBC 2.60 L Hgb 8.0 L Hct 24.1 L MCV MCH MCHC RDW 15.7 H Plt Count Lymph % (Auto) 7.9 L Rich % (Auto) Eos % (Auto) Lymph # 0.7 L Rich # Eos # Seg Neutrophils % 83.6 H Seg Neuts % (Manual) Lymphocytes % (Manual) Monocytes % (Manual) Eosinophils % (Manual) Nucleated RBC % Seg Neutrophils # Seg Neutrophils # Man Lymphocytes # (Manual) Monocytes # (Manual) Eosinophils # (Manual) PT INR D-Dimer Heparin Anti-Xa Level POC ABG pH 7.286 L ABG pH POC ABG pCO2 54.7 H POC ABG pO2 179 H ABG pO2 ABG HCO3 ABG O2 Saturation ABG Base Excess ABG Hemoglobin Oxyhemoglobin Sodium Potassium Chloride Carbon Dioxide BUN 68 H Creatinine 6.6 H Glucose POC Glucose Lactic Acid Calcium 6.5 L D Ionized Calcium Phosphorus 7.30 H Magnesium Iron TIBC Ferritin Total Bilirubin Direct Bilirubin AST ALT Alkaline Phosphatase Total Creatine Kinase 1652 H CK-MB (CK-2) Troponin T C-Reactive Protein Serum Total Protein Total Protein Albumin Mssfw-0-Hqvutpxbu Okzcb-5-Pjievdqjc PEP Interpretation Triglycerides LDL Cholesterol Direct HDL Cholesterol Free T4 PTH Intact Urine WBC (Auto) Urine Creatinine Salicylates Acetaminophen Crossmatch 04/01/19 04/01/19 04/01/19 05:14 05:37 18:37 WBC RBC Hgb Hct MCV MCH MCHC RDW Plt Count Lymph % (Auto) Rich % (Auto) Eos % (Auto) Lymph # Rich # Eos # Seg Neutrophils % Seg Neuts % (Manual) Lymphocytes % (Manual) Monocytes % (Manual) Eosinophils % (Manual) Nucleated RBC % Seg Neutrophils # Seg Neutrophils # Man Lymphocytes # (Manual) Monocytes # (Manual) Eosinophils # (Manual) PT INR D-Dimer Heparin Anti-Xa Level POC ABG pH 7.283 L ABG pH POC ABG pCO2 53.4 H POC ABG pO2 241 H ABG pO2 ABG HCO3 ABG O2 Saturation ABG Base Excess ABG Hemoglobin Oxyhemoglobin Sodium Potassium Chloride Carbon Dioxide BUN Creatinine Glucose POC Glucose 111 H 119 H Lactic Acid Calcium Ionized Calcium Phosphorus Magnesium Iron TIBC Ferritin Total Bilirubin Direct Bilirubin AST ALT Alkaline Phosphatase Total Creatine Kinase CK-MB (CK-2) Troponin T C-Reactive Protein Serum Total Protein Total Protein Albumin Riiuf-9-Dunkovamw Tzirr-6-Baitycqjg PEP Interpretation Triglycerides LDL Cholesterol Direct HDL Cholesterol Free T4 PTH Intact Urine WBC (Auto) Urine Creatinine Salicylates Acetaminophen Crossmatch 04/01/19 04/02/19 04/02/19 21:28 04:40 05:03 WBC RBC 2.36 L Hgb 7.2 L Hct 21.9 L MCV MCH MCHC RDW 16.0 H Plt Count Lymph % (Auto) 10.8 L Rich % (Auto) Eos % (Auto) Lymph # 0.8 L Rich # Eos # Seg Neutrophils % 80.3 H Seg Neuts % (Manual) Lymphocytes % (Manual) Monocytes % (Manual) Eosinophils % (Manual) Nucleated RBC % Seg Neutrophils # Seg Neutrophils # Man Lymphocytes # (Manual) Monocytes # (Manual) Eosinophils # (Manual) PT INR D-Dimer Heparin Anti-Xa Level POC ABG pH 7.299 L 7.300 L ABG pH POC ABG pCO2 48.2 H 45.2 H POC ABG pO2 133 H 107 H ABG pO2 ABG HCO3 ABG O2 Saturation ABG Base Excess ABG Hemoglobin Oxyhemoglobin Sodium Potassium Chloride Carbon Dioxide BUN Creatinine Glucose POC Glucose Lactic Acid Calcium Ionized Calcium Phosphorus Magnesium Iron TIBC Ferritin Total Bilirubin Direct Bilirubin AST ALT Alkaline Phosphatase Total Creatine Kinase CK-MB (CK-2) Troponin T C-Reactive Protein Serum Total Protein Total Protein Albumin Orbsr-9-Swnloxnnz Qeady-2-Aykascsdh PEP Interpretation Triglycerides LDL Cholesterol Direct HDL Cholesterol Free T4 PTH Intact Urine WBC (Auto) Urine Creatinine Salicylates Acetaminophen Crossmatch 04/02/19 04/02/19 04/02/19 05:03 05:03 12:15 WBC RBC Hgb 7.4 L Hct 22.6 L MCV MCH MCHC RDW Plt Count Lymph % (Auto) Rich % (Auto) Eos % (Auto) Lymph # Rich # Eos # Seg Neutrophils % Seg Neuts % (Manual) Lymphocytes % (Manual) Monocytes % (Manual) Eosinophils % (Manual) Nucleated RBC % Seg Neutrophils # Seg Neutrophils # Man Lymphocytes # (Manual) Monocytes # (Manual) Eosinophils # (Manual) PT INR D-Dimer Heparin Anti-Xa Level POC ABG pH ABG pH POC ABG pCO2 POC ABG pO2 ABG pO2 ABG HCO3 ABG O2 Saturation ABG Base Excess ABG Hemoglobin Oxyhemoglobin Sodium 136 L Potassium Chloride 97.8 L Carbon Dioxide 18 L BUN 82 H Creatinine 8.2 H Glucose POC Glucose Lactic Acid Calcium 6.7 L Ionized Calcium Phosphorus 7.50 H Magnesium Iron 26 L TIBC 138 L Ferritin 607.0 H Total Bilirubin Direct Bilirubin AST ALT Alkaline Phosphatase Total Creatine Kinase CK-MB (CK-2) Troponin T C-Reactive Protein Serum Total Protein Total Protein Albumin Pxgpw-8-Baexnqsei Ddfjn-0-Vhkrnyvfi PEP Interpretation Triglycerides LDL Cholesterol Direct HDL Cholesterol Free T4 PTH Intact Urine WBC (Auto) Urine Creatinine Salicylates Acetaminophen Crossmatch 04/02/19 04/02/19 04/03/19 16:34 17:14 04:18 WBC RBC Hgb Hct MCV MCH MCHC RDW Plt Count Lymph % (Auto) Rich % (Auto) Eos % (Auto) Lymph # Rich # Eos # Seg Neutrophils % Seg Neuts % (Manual) Lymphocytes % (Manual) Monocytes % (Manual) Eosinophils % (Manual) Nucleated RBC % Seg Neutrophils # Seg Neutrophils # Man Lymphocytes # (Manual) Monocytes # (Manual) Eosinophils # (Manual) PT INR D-Dimer Heparin Anti-Xa Level POC ABG pH ABG pH POC ABG pCO2 POC ABG pO2 146 H ABG pO2 ABG HCO3 ABG O2 Saturation ABG Base Excess ABG Hemoglobin Oxyhemoglobin Sodium Potassium Chloride Carbon Dioxide BUN Creatinine Glucose POC Glucose 108 H Lactic Acid Calcium Ionized Calcium Phosphorus Magnesium Iron TIBC Ferritin Total Bilirubin Direct Bilirubin AST ALT Alkaline Phosphatase Total Creatine Kinase CK-MB (CK-2) Troponin T C-Reactive Protein Serum Total Protein Total Protein Albumin Nxhcm-3-Ejllmozpv Cdfnw-0-Ilgpvozdb PEP Interpretation Triglycerides LDL Cholesterol Direct HDL Cholesterol Free T4 PTH Intact Urine WBC (Auto) Urine Creatinine Salicylates Acetaminophen Crossmatch See Detail 04/03/19 04/03/19 04/03/19 04:25 08:30 18:24 WBC RBC 2.40 L Hgb 7.3 L Hct 21.9 L MCV MCH MCHC RDW Plt Count Lymph % (Auto) Rich % (Auto) 7.7 H Eos % (Auto) Lymph # 0.9 L Rich # Eos # Seg Neutrophils % 74.6 H Seg Neuts % (Manual) Lymphocytes % (Manual) Monocytes % (Manual) Eosinophils % (Manual) Nucleated RBC % Seg Neutrophils # Seg Neutrophils # Man Lymphocytes # (Manual) Monocytes # (Manual) Eosinophils # (Manual) PT INR D-Dimer Heparin Anti-Xa Level POC ABG pH ABG pH POC ABG pCO2 POC ABG pO2 ABG pO2 ABG HCO3 ABG O2 Saturation ABG Base Excess ABG Hemoglobin Oxyhemoglobin Sodium 136 L Potassium Chloride 97.0 L Carbon Dioxide BUN 58 H Creatinine 7.3 H Glucose POC Glucose 106 H Lactic Acid Calcium 7.5 L Ionized Calcium Phosphorus 5.80 H D Magnesium Iron TIBC Ferritin Total Bilirubin Direct Bilirubin AST ALT Alkaline Phosphatase Total Creatine Kinase CK-MB (CK-2) Troponin T C-Reactive Protein Serum Total Protein Total Protein Albumin Zbdbw-7-Icuqngsit Sonib-2-Ufygqrywe PEP Interpretation Triglycerides LDL Cholesterol Direct HDL Cholesterol Free T4 PTH Intact Urine WBC (Auto) Urine Creatinine Salicylates Acetaminophen Crossmatch 04/03/19 04/04/19 04/04/19 23:43 04:47 04:47 WBC RBC 2.72 L Hgb 8.3 L Hct 24.7 L MCV MCH MCHC RDW 15.6 H Plt Count Lymph % (Auto) Rich % (Auto) 10.1 H Eos % (Auto) Lymph # 0.8 L Rich # Eos # Seg Neutrophils % 71.4 H Seg Neuts % (Manual) Lymphocytes % (Manual) Monocytes % (Manual) Eosinophils % (Manual) Nucleated RBC % Seg Neutrophils # Seg Neutrophils # Man Lymphocytes # (Manual) Monocytes # (Manual) Eosinophils # (Manual) PT INR D-Dimer Heparin Anti-Xa Level POC ABG pH ABG pH POC ABG pCO2 POC ABG pO2 ABG pO2 123.8 H ABG HCO3 ABG O2 Saturation ABG Base Excess -3.0 L ABG Hemoglobin 7.9 L Oxyhemoglobin Sodium 134 L Potassium Chloride 97.9 L Carbon Dioxide BUN 64 H Creatinine 8.1 H Glucose POC Glucose Lactic Acid Calcium 7.2 L Ionized Calcium Phosphorus Magnesium Iron TIBC Ferritin Total Bilirubin Direct Bilirubin AST ALT Alkaline Phosphatase Total Creatine Kinase CK-MB (CK-2) Troponin T C-Reactive Protein Serum Total Protein Total Protein Albumin Qoibq-3-Spoyurimu Hvave-7-Odyktflnt PEP Interpretation Triglycerides LDL Cholesterol Direct HDL Cholesterol Free T4 PTH Intact Urine WBC (Auto) Urine Creatinine Salicylates Acetaminophen Crossmatch 04/04/19 04/04/19 04/04/19 06:07 13:40 18:18 WBC RBC Hgb Hct MCV MCH MCHC RDW Plt Count Lymph % (Auto) Rich % (Auto) Eos % (Auto) Lymph # Rich # Eos # Seg Neutrophils % Seg Neuts % (Manual) Lymphocytes % (Manual) Monocytes % (Manual) Eosinophils % (Manual) Nucleated RBC % Seg Neutrophils # Seg Neutrophils # Man Lymphocytes # (Manual) Monocytes # (Manual) Eosinophils # (Manual) PT INR D-Dimer Heparin Anti-Xa Level POC ABG pH ABG pH POC ABG pCO2 POC ABG pO2 ABG pO2 95.9 H ABG HCO3 ABG O2 Saturation ABG Base Excess -3.0 L ABG Hemoglobin 8.5 L Oxyhemoglobin Sodium Potassium Chloride Carbon Dioxide BUN Creatinine Glucose POC Glucose 107 H 107 H Lactic Acid Calcium Ionized Calcium Phosphorus Magnesium Iron TIBC Ferritin Total Bilirubin Direct Bilirubin AST ALT Alkaline Phosphatase Total Creatine Kinase CK-MB (CK-2) Troponin T C-Reactive Protein Serum Total Protein Total Protein Albumin Ldwlw-0-Wklcxbjon Kafyt-8-Ndxsipbsp PEP Interpretation Triglycerides LDL Cholesterol Direct HDL Cholesterol Free T4 PTH Intact Urine WBC (Auto) Urine Creatinine Salicylates Acetaminophen Crossmatch 04/04/19 04/05/19 04/05/19 21:22 04:09 04:09 WBC RBC 2.76 L Hgb 8.4 L Hct 25.4 L MCV MCH MCHC RDW 15.8 H Plt Count 133 L Lymph % (Auto) Rich % (Auto) 9.6 H Eos % (Auto) Lymph # 0.7 L Rich # Eos # Seg Neutrophils % 72.6 H Seg Neuts % (Manual) Lymphocytes % (Manual) Monocytes % (Manual) Eosinophils % (Manual) Nucleated RBC % Seg Neutrophils # Seg Neutrophils # Man Lymphocytes # (Manual) Monocytes # (Manual) Eosinophils # (Manual) PT INR D-Dimer Heparin Anti-Xa Level POC ABG pH ABG pH POC ABG pCO2 47.2 H POC ABG pO2 137 H ABG pO2 ABG HCO3 ABG O2 Saturation ABG Base Excess ABG Hemoglobin Oxyhemoglobin Sodium 136 L Potassium Chloride Carbon Dioxide BUN 46 H Creatinine 6.7 H Glucose POC Glucose Lactic Acid Calcium 7.7 L Ionized Calcium Phosphorus Magnesium Iron TIBC Ferritin Total Bilirubin Direct Bilirubin AST ALT Alkaline Phosphatase Total Creatine Kinase CK-MB (CK-2) Troponin T C-Reactive Protein Serum Total Protein Total Protein Albumin Njbce-0-Efduiikyj Fciic-2-Hwvxewauv PEP Interpretation Triglycerides LDL Cholesterol Direct HDL Cholesterol Free T4 PTH Intact Urine WBC (Auto) Urine Creatinine Salicylates Acetaminophen Crossmatch 04/05/19 04/05/19 04/05/19 05:28 06:14 16:50 WBC RBC Hgb Hct MCV MCH MCHC RDW Plt Count Lymph % (Auto) Rich % (Auto) Eos % (Auto) Lymph # Rich # Eos # Seg Neutrophils % Seg Neuts % (Manual) Lymphocytes % (Manual) Monocytes % (Manual) Eosinophils % (Manual) Nucleated RBC % Seg Neutrophils # Seg Neutrophils # Man Lymphocytes # (Manual) Monocytes # (Manual) Eosinophils # (Manual) PT INR D-Dimer Heparin Anti-Xa Level POC ABG pH ABG pH POC ABG pCO2 POC ABG pO2 67 L ABG pO2 ABG HCO3 ABG O2 Saturation ABG Base Excess ABG Hemoglobin Oxyhemoglobin Sodium Potassium Chloride Carbon Dioxide BUN Creatinine Glucose POC Glucose 108 H Lactic Acid Calcium Ionized Calcium Phosphorus Magnesium Iron TIBC Ferritin Total Bilirubin Direct Bilirubin AST ALT Alkaline Phosphatase Total Creatine Kinase CK-MB (CK-2) Troponin T C-Reactive Protein Serum Total Protein Total Protein Albumin Erjlz-[id number]-Ygskkgzzi Hvceu-8-Pygoslahn PEP Interpretation Triglycerides LDL Cholesterol Direct HDL Cholesterol Free T4 PTH Intact Urine WBC (Auto) 40.0 H Urine Creatinine Salicylates Acetaminophen Crossmatch 04/05/19 04/06/19 04/06/19 17:22 00:13 04:44 WBC RBC 2.48 L Hgb 7.5 L Hct 22.9 L MCV MCH MCHC RDW 16.0 H Plt Count 107 L Lymph % (Auto) Rich % (Auto) 10.7 H Eos % (Auto) Lymph # 1.0 L Rich # Eos # Seg Neutrophils % Seg Neuts % (Manual) Lymphocytes % (Manual) Monocytes % (Manual) Eosinophils % (Manual) Nucleated RBC % Seg Neutrophils # Seg Neutrophils # Man Lymphocytes # (Manual) Monocytes # (Manual) Eosinophils # (Manual) PT INR D-Dimer Heparin Anti-Xa Level POC ABG pH ABG pH POC ABG pCO2 POC ABG pO2 ABG pO2 ABG HCO3 ABG O2 Saturation ABG Base Excess ABG Hemoglobin Oxyhemoglobin Sodium Potassium Chloride Carbon Dioxide BUN Creatinine Glucose POC Glucose 118 H 138 H Lactic Acid Calcium Ionized Calcium Phosphorus Magnesium Iron TIBC Ferritin Total Bilirubin Direct Bilirubin AST ALT Alkaline Phosphatase Total Creatine Kinase CK-MB (CK-2) Troponin T C-Reactive Protein Serum Total Protein Total Protein Albumin Hebrx-0-Qwdzukfwe Ewexo-5-Kelftpxzy PEP Interpretation Triglycerides LDL Cholesterol Direct HDL Cholesterol Free T4 PTH Intact Urine WBC (Auto) Urine Creatinine Salicylates Acetaminophen Crossmatch 04/06/19 04/06/19 04/06/19 04:44 05:20 05:23 WBC RBC Hgb Hct MCV MCH MCHC RDW Plt Count Lymph % (Auto) Rich % (Auto) Eos % (Auto) Lymph # Rich # Eos # Seg Neutrophils % Seg Neuts % (Manual) Lymphocytes % (Manual) Monocytes % (Manual) Eosinophils % (Manual) Nucleated RBC % Seg Neutrophils # Seg Neutrophils # Man Lymphocytes # (Manual) Monocytes # (Manual) Eosinophils # (Manual) PT INR D-Dimer Heparin Anti-Xa Level POC ABG pH ABG pH POC ABG pCO2 POC ABG pO2 ABG pO2 104.0 H ABG HCO3 ABG O2 Saturation ABG Base Excess -2.1 L ABG Hemoglobin 7.3 L Oxyhemoglobin Sodium Potassium Chloride Carbon Dioxide BUN 64 H Creatinine 8.2 H Glucose 103 H POC Glucose 118 H Lactic Acid Calcium 7.3 L Ionized Calcium Phosphorus Magnesium Iron TIBC Ferritin Total Bilirubin Direct Bilirubin AST ALT Alkaline Phosphatase Total Creatine Kinase CK-MB (CK-2) Troponin T C-Reactive Protein Serum Total Protein Total Protein Albumin Sjsmv-7-Cflldtell Jctpi-7-Reaajowje PEP Interpretation Triglycerides LDL Cholesterol Direct HDL Cholesterol Free T4 PTH Intact Urine WBC (Auto) Urine Creatinine Salicylates Acetaminophen Crossmatch 04/06/19 04/07/19 04/07/19 12:02 05:40 05:40 WBC RBC 2.59 L Hgb 7.9 L Hct 23.8 L MCV MCH MCHC RDW 15.8 H Plt Count 89 L Lymph % (Auto) Rich % (Auto) 10.3 H Eos % (Auto) Lymph # 1.1 L Rich # Eos # Seg Neutrophils % Seg Neuts % (Manual) Lymphocytes % (Manual) Monocytes % (Manual) Eosinophils % (Manual) Nucleated RBC % Seg Neutrophils # Seg Neutrophils # Man Lymphocytes # (Manual) Monocytes # (Manual) Eosinophils # (Manual) PT INR D-Dimer Heparin Anti-Xa Level POC ABG pH ABG pH POC ABG pCO2 POC ABG pO2 ABG pO2 ABG HCO3 ABG O2 Saturation ABG Base Excess ABG Hemoglobin Oxyhemoglobin Sodium 136 L Potassium 3.5 L Chloride Carbon Dioxide BUN 46 H Creatinine 6.2 H Glucose POC Glucose 108 H Lactic Acid Calcium 7.9 L Ionized Calcium Phosphorus Magnesium Iron TIBC Ferritin Total Bilirubin Direct Bilirubin AST ALT Alkaline Phosphatase Total Creatine Kinase CK-MB (CK-2) Troponin T C-Reactive Protein Serum Total Protein Total Protein Albumin Ywgoa-0-Xnecsjfik Egvow-6-Naawhcduy PEP Interpretation Triglycerides LDL Cholesterol Direct HDL Cholesterol Free T4 PTH Intact Urine WBC (Auto) Urine Creatinine Salicylates Acetaminophen Crossmatch 04/07/19 04/09/19 04/09/19 12:57 04:28 04:28 WBC RBC 2.85 L Hgb 8.7 L Hct 26.2 L MCV MCH MCHC RDW 15.6 H Plt Count Lymph % (Auto) Rich % (Auto) 10.4 H Eos % (Auto) Lymph # 1.0 L Rich # Eos # Seg Neutrophils % 73.3 H Seg Neuts % (Manual) Lymphocytes % (Manual) Monocytes % (Manual) Eosinophils % (Manual) Nucleated RBC % Seg Neutrophils # Seg Neutrophils # Man Lymphocytes # (Manual) Monocytes # (Manual) Eosinophils # (Manual) PT INR D-Dimer Heparin Anti-Xa Level POC ABG pH ABG pH POC ABG pCO2 POC ABG pO2 107 H ABG pO2 ABG HCO3 ABG O2 Saturation ABG Base Excess ABG Hemoglobin Oxyhemoglobin Sodium Potassium 3.5 L Chloride 97.8 L Carbon Dioxide BUN 62 H Creatinine 8.1 H Glucose POC Glucose Lactic Acid Calcium 8.2 L Ionized Calcium Phosphorus 5.10 H Magnesium Iron TIBC Ferritin Total Bilirubin Direct Bilirubin AST ALT Alkaline Phosphatase Total Creatine Kinase CK-MB (CK-2) Troponin T C-Reactive Protein Serum Total Protein Total Protein Albumin Nsrjg-3-Asbqpgooq Eysor-1-Gsxuoiogl PEP Interpretation Triglycerides LDL Cholesterol Direct HDL Cholesterol Free T4 PTH Intact Urine WBC (Auto) Urine Creatinine Salicylates Acetaminophen Crossmatch 04/10/19 04/11/19 04/11/19 18:15 00:25 04:16 WBC 11.5 H RBC 2.91 L Hgb 8.9 L Hct 27.6 L MCV 95 H MCH MCHC RDW 17.5 H Plt Count Lymph % (Auto) Rich % (Auto) Eos % (Auto) Lymph # Rich # Eos # Seg Neutrophils % Seg Neuts % (Manual) 71.0 H Lymphocytes % (Manual) Monocytes % (Manual) 8.0 H Eosinophils % (Manual) Nucleated RBC % Seg Neutrophils # Seg Neutrophils # Man 8.2 H Lymphocytes # (Manual) Monocytes # (Manual) 0.9 H Eosinophils # (Manual) PT INR D-Dimer Heparin Anti-Xa Level POC ABG pH ABG pH POC ABG pCO2 POC ABG pO2 ABG pO2 ABG HCO3 ABG O2 Saturation ABG Base Excess ABG Hemoglobin Oxyhemoglobin Sodium Potassium Chloride Carbon Dioxide BUN Creatinine Glucose POC Glucose 109 H 114 H Lactic Acid Calcium Ionized Calcium Phosphorus Magnesium Iron TIBC Ferritin Total Bilirubin Direct Bilirubin AST ALT Alkaline Phosphatase Total Creatine Kinase CK-MB (CK-2) Troponin T C-Reactive Protein Serum Total Protein Total Protein Albumin Xzuva-0-Cxtyvhpmq Hhdhg-9-Cdbuyainx PEP Interpretation Triglycerides LDL Cholesterol Direct HDL Cholesterol Free T4 PTH Intact Urine WBC (Auto) Urine Creatinine Salicylates Acetaminophen Crossmatch 04/11/19 04/11/19 04/11/19 06:47 09:21 12:15 WBC RBC Hgb Hct MCV MCH MCHC RDW Plt Count Lymph % (Auto) Rich % (Auto) Eos % (Auto) Lymph # Rich # Eos # Seg Neutrophils % Seg Neuts % (Manual) Lymphocytes % (Manual) Monocytes % (Manual) Eosinophils % (Manual) Nucleated RBC % Seg Neutrophils # Seg Neutrophils # Man Lymphocytes # (Manual) Monocytes # (Manual) Eosinophils # (Manual) PT INR D-Dimer Heparin Anti-Xa Level POC ABG pH ABG pH POC ABG pCO2 POC ABG pO2 ABG pO2 ABG HCO3 ABG O2 Saturation ABG Base Excess ABG Hemoglobin Oxyhemoglobin Sodium Potassium 3.5 L Chloride Carbon Dioxide BUN 45 H Creatinine 6.0 H Glucose 113 H POC Glucose 106 H 109 H Lactic Acid Calcium Ionized Calcium Phosphorus Magnesium Iron TIBC Ferritin Total Bilirubin Direct Bilirubin AST ALT Alkaline Phosphatase Total Creatine Kinase CK-MB (CK-2) Troponin T C-Reactive Protein Serum Total Protein Total Protein Albumin Adwoa-4-Zzvmqdqzw Eaepo-1-Tuqmgyywe PEP Interpretation Triglycerides LDL Cholesterol Direct HDL Cholesterol Free T4 PTH Intact Urine WBC (Auto) Urine Creatinine Salicylates Acetaminophen Crossmatch 04/11/19 04/12/19 04/12/19 18:42 12:13 23:52 WBC RBC Hgb Hct MCV MCH MCHC RDW Plt Count Lymph % (Auto) Rich % (Auto) Eos % (Auto) Lymph # Rich # Eos # Seg Neutrophils % Seg Neuts % (Manual) Lymphocytes % (Manual) Monocytes % (Manual) Eosinophils % (Manual) Nucleated RBC % Seg Neutrophils # Seg Neutrophils # Man Lymphocytes # (Manual) Monocytes # (Manual) Eosinophils # (Manual) PT INR D-Dimer Heparin Anti-Xa Level POC ABG pH ABG pH POC ABG pCO2 POC ABG pO2 ABG pO2 ABG HCO3 ABG O2 Saturation ABG Base Excess ABG Hemoglobin Oxyhemoglobin Sodium Potassium Chloride Carbon Dioxide BUN Creatinine Glucose POC Glucose 107 H 115 H 124 H Lactic Acid Calcium Ionized Calcium Phosphorus Magnesium Iron TIBC Ferritin Total Bilirubin Direct Bilirubin AST ALT Alkaline Phosphatase Total Creatine Kinase CK-MB (CK-2) Troponin T C-Reactive Protein Serum Total Protein Total Protein Albumin Akiyi-5-Iruxbjofc Xgrso-4-Loxqtkhel PEP Interpretation Triglycerides LDL Cholesterol Direct HDL Cholesterol Free T4 PTH Intact Urine WBC (Auto) Urine Creatinine Salicylates Acetaminophen Crossmatch 04/13/19 04/13/19 04/13/19 05:00 05:00 05:47 WBC 11.7 H RBC 2.97 L Hgb 8.8 L Hct 27.3 L MCV MCH MCHC RDW 16.1 H Plt Count Lymph % (Auto) 9.5 L Rich % (Auto) 9.9 H Eos % (Auto) Lymph # 1.1 L Rich # 1.2 H Eos # Seg Neutrophils % 78.6 H Seg Neuts % (Manual) Lymphocytes % (Manual) Monocytes % (Manual) Eosinophils % (Manual) Nucleated RBC % Seg Neutrophils # 9.2 H Seg Neutrophils # Man Lymphocytes # (Manual) Monocytes # (Manual) Eosinophils # (Manual) PT INR D-Dimer Heparin Anti-Xa Level POC ABG pH ABG pH POC ABG pCO2 POC ABG pO2 ABG pO2 ABG HCO3 ABG O2 Saturation ABG Base Excess ABG Hemoglobin Oxyhemoglobin Sodium Potassium 3.5 L Chloride Carbon Dioxide BUN 42 H Creatinine 4.6 H Glucose 106 H POC Glucose 107 H Lactic Acid Calcium 10.6 H D Ionized Calcium Phosphorus 5.90 H Magnesium Iron TIBC Ferritin Total Bilirubin Direct Bilirubin AST ALT Alkaline Phosphatase Total Creatine Kinase CK-MB (CK-2) Troponin T C-Reactive Protein Serum Total Protein Total Protein 5.8 L Albumin 2.5 L Oyhvv-1-Ssryesnjh Knavx-0-Thdrveksn PEP Interpretation Triglycerides LDL Cholesterol Direct HDL Cholesterol Free T4 PTH Intact Urine WBC (Auto) Urine Creatinine Salicylates Acetaminophen Crossmatch 1004/14/19 04/14/19 17:32 00:00 03:55 WBC RBC Hgb Hct MCV MCH MCHC RDW Plt Count Lymph % (Auto) Rich % (Auto) Eos % (Auto) Lymph # Rich # Eos # Seg Neutrophils % Seg Neuts % (Manual) Lymphocytes % (Manual) Monocytes % (Manual) Eosinophils % (Manual) Nucleated RBC % Seg Neutrophils # Seg Neutrophils # Man Lymphocytes # (Manual) Monocytes # (Manual) Eosinophils # (Manual) PT INR D-Dimer Heparin Anti-Xa Level POC ABG pH ABG pH POC ABG pCO2 POC ABG pO2 ABG pO2 ABG HCO3 ABG O2 Saturation ABG Base Excess ABG Hemoglobin Oxyhemoglobin Sodium Potassium 3.0 L Chloride Carbon Dioxide BUN 30 H Creatinine 3.1 H Glucose POC Glucose 112 H 120 H Lactic Acid Calcium 10.8 H Ionized Calcium Phosphorus Magnesium Iron TIBC Ferritin Total Bilirubin Direct Bilirubin AST ALT Alkaline Phosphatase Total Creatine Kinase CK-MB (CK-2) Troponin T C-Reactive Protein Serum Total Protein Total Protein Albumin Ncouw-3-Twbxcdysc Kelpc-2-Ltahdkwsd PEP Interpretation Triglycerides LDL Cholesterol Direct HDL Cholesterol Free T4 PTH Intact Urine WBC (Auto) Urine Creatinine Salicylates Acetaminophen Crossmatch 04/14/19 04/14/19 04/15/19 11:56 23:28 05:11 WBC 13.0 H RBC 2.93 L Hgb 8.6 L Hct 26.5 L MCV MCH MCHC RDW 16.5 H Plt Count Lymph % (Auto) 12.2 L Rich % (Auto) 9.1 H Eos % (Auto) Lymph # Rich # 1.2 H Eos # Seg Neutrophils % 77.6 H Seg Neuts % (Manual) Lymphocytes % (Manual) Monocytes % (Manual) Eosinophils % (Manual) Nucleated RBC % Seg Neutrophils # 10.1 H Seg Neutrophils # Man Lymphocytes # (Manual) Monocytes # (Manual) Eosinophils # (Manual) PT INR D-Dimer Heparin Anti-Xa Level POC ABG pH ABG pH POC ABG pCO2 POC ABG pO2 ABG pO2 ABG HCO3 ABG O2 Saturation ABG Base Excess ABG Hemoglobin Oxyhemoglobin Sodium Potassium Chloride Carbon Dioxide BUN Creatinine Glucose POC Glucose 109 H 112 H Lactic Acid Calcium Ionized Calcium Phosphorus Magnesium Iron TIBC Ferritin Total Bilirubin Direct Bilirubin AST ALT Alkaline Phosphatase Total Creatine Kinase CK-MB (CK-2) Troponin T C-Reactive Protein Serum Total Protein Total Protein Albumin Trupt-0-Bglcqemrg Ootyr-1-Hlsjurkks PEP Interpretation Triglycerides LDL Cholesterol Direct HDL Cholesterol Free T4 PTH Intact Urine WBC (Auto) Urine Creatinine Salicylates Acetaminophen Crossmatch 04/15/19 04/15/19 04/15/19 05:11 05:31 18:03 WBC RBC Hgb Hct MCV MCH MCHC RDW Plt Count Lymph % (Auto) Rich % (Auto) Eos % (Auto) Lymph # Rich # Eos # Seg Neutrophils % Seg Neuts % (Manual) Lymphocytes % (Manual) Monocytes % (Manual) Eosinophils % (Manual) Nucleated RBC % Seg Neutrophils # Seg Neutrophils # Man Lymphocytes # (Manual) Monocytes # (Manual) Eosinophils # (Manual) PT INR D-Dimer Heparin Anti-Xa Level POC ABG pH ABG pH POC ABG pCO2 POC ABG pO2 ABG pO2 ABG HCO3 ABG O2 Saturation ABG Base Excess ABG Hemoglobin Oxyhemoglobin Sodium Potassium 3.2 L Chloride Carbon Dioxide BUN 44 H Creatinine 3.6 H Glucose 106 H POC Glucose 110 H 121 H Lactic Acid Calcium 12.0 H Ionized Calcium Phosphorus 5.00 H Magnesium Iron TIBC Ferritin Total Bilirubin Direct Bilirubin AST ALT Alkaline Phosphatase Total Creatine Kinase CK-MB (CK-2) Troponin T C-Reactive Protein Serum Total Protein Total Protein Albumin Guekr-7-Iyfrdkmta Vfyox-3-Hplbuduom PEP Interpretation Triglycerides LDL Cholesterol Direct HDL Cholesterol Free T4 PTH Intact Urine WBC (Auto) Urine Creatinine Salicylates Acetaminophen Crossmatch 04/16/19 04/16/19 04/17/19 05:07 05:07 04:15 WBC 12.6 H RBC 3.12 L Hgb 9.0 L Hct 28.2 L MCV MCH MCHC RDW 16.6 H Plt Count Lymph % (Auto) 10.3 L Rich % (Auto) 9.8 H Eos % (Auto) Lymph # Rich # 1.2 H Eos # Seg Neutrophils % 78.2 H Seg Neuts % (Manual) Lymphocytes % (Manual) Monocytes % (Manual) Eosinophils % (Manual) Nucleated RBC % Seg Neutrophils # 9.9 H Seg Neutrophils # Man Lymphocytes # (Manual) Monocytes # (Manual) Eosinophils # (Manual) PT INR D-Dimer Heparin Anti-Xa Level POC ABG pH ABG pH POC ABG pCO2 POC ABG pO2 ABG pO2 ABG HCO3 ABG O2 Saturation ABG Base Excess ABG Hemoglobin Oxyhemoglobin Sodium 147 H 150 H Potassium 3.5 L 3.1 L Chloride Carbon Dioxide 32 H BUN 54 H 65 H Creatinine 3.8 H 4.0 H Glucose 102 H 107 H POC Glucose Lactic Acid Calcium 11.7 H 12.0 H Ionized Calcium Phosphorus 5.40 H Magnesium Iron TIBC Ferritin Total Bilirubin Direct Bilirubin AST ALT Alkaline Phosphatase Total Creatine Kinase CK-MB (CK-2) Troponin T C-Reactive Protein 7.10 H Serum Total Protein Total Protein Albumin Tqoki-2-Kjqngkgkw Pryxf-0-Wvkcjoqke PEP Interpretation Triglycerides LDL Cholesterol Direct HDL Cholesterol Free T4 PTH Intact Urine WBC (Auto) Urine Creatinine Salicylates Acetaminophen Crossmatch 04/17/19 04/17/19 04/17/19 04:15 06:05 12:49 WBC 15.8 H RBC 3.32 L Hgb 9.5 L Hct 29.9 L MCV MCH MCHC RDW 16.9 H Plt Count Lymph % (Auto) 12.6 L Rich % (Auto) 11.1 H Eos % (Auto) Lymph # Rich # 1.7 H Eos # Seg Neutrophils % 74.7 H Seg Neuts % (Manual) Lymphocytes % (Manual) Monocytes % (Manual) Eosinophils % (Manual) Nucleated RBC % Seg Neutrophils # 11.8 H Seg Neutrophils # Man Lymphocytes # (Manual) Monocytes # (Manual) Eosinophils # (Manual) PT INR D-Dimer Heparin Anti-Xa Level POC ABG pH ABG pH POC ABG pCO2 POC ABG pO2 ABG pO2 ABG HCO3 ABG O2 Saturation ABG Base Excess ABG Hemoglobin Oxyhemoglobin Sodium Potassium Chloride Carbon Dioxide BUN Creatinine Glucose POC Glucose 111 H 108 H Lactic Acid Calcium Ionized Calcium Phosphorus Magnesium Iron TIBC Ferritin Total Bilirubin Direct Bilirubin AST ALT Alkaline Phosphatase Total Creatine Kinase CK-MB (CK-2) Troponin T C-Reactive Protein Serum Total Protein Total Protein Albumin Vkheg-4-Fctpkipnj Tirxi-6-Jcvixsojz PEP Interpretation Triglycerides LDL Cholesterol Direct HDL Cholesterol Free T4 PTH Intact Urine WBC (Auto) Urine Creatinine Salicylates Acetaminophen Crossmatch 04/18/19 04/18/19 04/18/19 00:23 04:41 04:41 WBC 19.4 H RBC 3.03 L Hgb 8.6 L Hct 27.5 L MCV MCH MCHC 31 L RDW 16.9 H Plt Count Lymph % (Auto) Rich % (Auto) Eos % (Auto) Lymph # Rich # Eos # Seg Neutrophils % Seg Neuts % (Manual) Lymphocytes % (Manual) Monocytes % (Manual) Eosinophils % (Manual) Nucleated RBC % Seg Neutrophils # Seg Neutrophils # Man Lymphocytes # (Manual) Monocytes # (Manual) Eosinophils # (Manual) PT INR D-Dimer Heparin Anti-Xa Level POC ABG pH ABG pH POC ABG pCO2 POC ABG pO2 ABG pO2 ABG HCO3 ABG O2 Saturation ABG Base Excess ABG Hemoglobin Oxyhemoglobin Sodium 152 H Potassium 3.0 L Chloride Carbon Dioxide BUN 80 H Creatinine 4.3 H Glucose 103 H POC Glucose 115 H Lactic Acid Calcium 11.4 H Ionized Calcium Phosphorus Magnesium Iron TIBC Ferritin Total Bilirubin Direct Bilirubin AST ALT Alkaline Phosphatase Total Creatine Kinase CK-MB (CK-2) Troponin T C-Reactive Protein Serum Total Protein Total Protein Albumin Infsw-9-Aexlgmpdv Ykapc-4-Ylcsbvtcc PEP Interpretation Triglycerides LDL Cholesterol Direct HDL Cholesterol Free T4 PTH Intact Urine WBC (Auto) Urine Creatinine Salicylates Acetaminophen Crossmatch 04/18/19 04/18/19 04/18/19 06:17 12:16 18:10 WBC RBC Hgb Hct MCV MCH MCHC RDW Plt Count Lymph % (Auto) Rich % (Auto) Eos % (Auto) Lymph # Rich # Eos # Seg Neutrophils % Seg Neuts % (Manual) Lymphocytes % (Manual) Monocytes % (Manual) Eosinophils % (Manual) Nucleated RBC % Seg Neutrophils # Seg Neutrophils # Man Lymphocytes # (Manual) Monocytes # (Manual) Eosinophils # (Manual) PT INR D-Dimer Heparin Anti-Xa Level POC ABG pH ABG pH POC ABG pCO2 POC ABG pO2 ABG pO2 ABG HCO3 ABG O2 Saturation ABG Base Excess ABG Hemoglobin Oxyhemoglobin Sodium Potassium Chloride Carbon Dioxide BUN Creatinine Glucose POC Glucose 124 H 119 H 111 H Lactic Acid Calcium Ionized Calcium Phosphorus Magnesium Iron TIBC Ferritin Total Bilirubin Direct Bilirubin AST ALT Alkaline Phosphatase Total Creatine Kinase CK-MB (CK-2) Troponin T C-Reactive Protein Serum Total Protein Total Protein Albumin Ybgjs-7-Ihijgpxvn Yecmc-2-Vqaregrmw PEP Interpretation Triglycerides LDL Cholesterol Direct HDL Cholesterol Free T4 PTH Intact Urine WBC (Auto) Urine Creatinine Salicylates Acetaminophen Crossmatch 04/19/19 04/19/19 04/20/19 03:49 05:27 09:09 WBC RBC Hgb Hct MCV MCH MCHC RDW Plt Count Lymph % (Auto) Rich % (Auto) Eos % (Auto) Lymph # Rich # Eos # Seg Neutrophils % Seg Neuts % (Manual) Lymphocytes % (Manual) Monocytes % (Manual) Eosinophils % (Manual) Nucleated RBC % Seg Neutrophils # Seg Neutrophils # Man Lymphocytes # (Manual) Monocytes # (Manual) Eosinophils # (Manual) PT INR D-Dimer Heparin Anti-Xa Level POC ABG pH ABG pH POC ABG pCO2 POC ABG pO2 ABG pO2 ABG HCO3 ABG O2 Saturation ABG Base Excess ABG Hemoglobin Oxyhemoglobin Sodium 147 H 150 H Potassium 3.3 L Chloride 108.9 H Carbon Dioxide BUN 45 H 70 H Creatinine 2.9 H 4.1 H Glucose 105 H POC Glucose 124 H Lactic Acid Calcium 10.6 H 11.6 H Ionized Calcium Phosphorus Magnesium Iron TIBC Ferritin Total Bilirubin Direct Bilirubin AST ALT Alkaline Phosphatase Total Creatine Kinase CK-MB (CK-2) Troponin T C-Reactive Protein Serum Total Protein Total Protein Albumin Qtsnv-7-Auqflukve Msyxy-7-Qualeqcet PEP Interpretation Triglycerides LDL Cholesterol Direct HDL Cholesterol Free T4 PTH Intact Urine WBC (Auto) Urine Creatinine Salicylates Acetaminophen Crossmatch 04/20/19 04/20/19 04/21/19 12:29 18:45 01:34 WBC RBC Hgb Hct MCV MCH MCHC RDW Plt Count Lymph % (Auto) Rich % (Auto) Eos % (Auto) Lymph # Rich # Eos # Seg Neutrophils % Seg Neuts % (Manual) Lymphocytes % (Manual) Monocytes % (Manual) Eosinophils % (Manual) Nucleated RBC % Seg Neutrophils # Seg Neutrophils # Man Lymphocytes # (Manual) Monocytes # (Manual) Eosinophils # (Manual) PT INR D-Dimer Heparin Anti-Xa Level POC ABG pH ABG pH POC ABG pCO2 POC ABG pO2 ABG pO2 ABG HCO3 ABG O2 Saturation ABG Base Excess ABG Hemoglobin Oxyhemoglobin Sodium Potassium Chloride Carbon Dioxide BUN 40 H Creatinine 2.6 H Glucose 104 H POC Glucose 131 H 134 H Lactic Acid Calcium 11.0 H Ionized Calcium Phosphorus Magnesium Iron TIBC Ferritin Total Bilirubin Direct Bilirubin AST ALT Alkaline Phosphatase Total Creatine Kinase CK-MB (CK-2) Troponin T C-Reactive Protein Serum Total Protein Total Protein Albumin Xrtwg-5-Xsbrdixmi Gtael-8-Tgneebkpy PEP Interpretation Triglycerides LDL Cholesterol Direct HDL Cholesterol Free T4 PTH Intact Urine WBC (Auto) Urine Creatinine Salicylates Acetaminophen Crossmatch 04/21/19 04/21/19 04/22/19 04:22 04:22 04:24 WBC 14.2 H 14.3 H RBC 3.02 L 3.57 L Hgb 8.7 L 10.1 L Hct 27.2 L 32.1 L MCV MCH MCHC RDW 16.7 H 17.2 H Plt Count Lymph % (Auto) Rich % (Auto) Eos % (Auto) Lymph # Rich # Eos # Seg Neutrophils % Seg Neuts % (Manual) Lymphocytes % (Manual) Monocytes % (Manual) Eosinophils % (Manual) Nucleated RBC % Seg Neutrophils # Seg Neutrophils # Man Lymphocytes # (Manual) Monocytes # (Manual) Eosinophils # (Manual) PT INR D-Dimer Heparin Anti-Xa Level POC ABG pH ABG pH POC ABG pCO2 POC ABG pO2 ABG pO2 ABG HCO3 ABG O2 Saturation ABG Base Excess ABG Hemoglobin Oxyhemoglobin Sodium Potassium Chloride Carbon Dioxide BUN Creatinine Glucose POC Glucose Lactic Acid Calcium Ionized Calcium Phosphorus Magnesium Iron TIBC Ferritin Total Bilirubin Direct Bilirubin AST ALT Alkaline Phosphatase Total Creatine Kinase CK-MB (CK-2) Troponin T C-Reactive Protein Serum Total Protein 5.7 L Total Protein Albumin 2.3 L Pqllw-0-Qvailgiiz 0.5 H Woxso-5-Dygcwrsph 1.0 H PEP Interpretation see below H Triglycerides LDL Cholesterol Direct HDL Cholesterol Free T4 PTH Intact Urine WBC (Auto) Urine Creatinine Salicylates Acetaminophen Crossmatch 04/22/19 04/22/19 04/22/19 04:24 06:37 11:57 WBC RBC Hgb Hct MCV MCH MCHC RDW Plt Count Lymph % (Auto) Rich % (Auto) Eos % (Auto) Lymph # Rich # Eos # Seg Neutrophils % Seg Neuts % (Manual) Lymphocytes % (Manual) Monocytes % (Manual) Eosinophils % (Manual) Nucleated RBC % Seg Neutrophils # Seg Neutrophils # Man Lymphocytes # (Manual) Monocytes # (Manual) Eosinophils # (Manual) PT INR D-Dimer Heparin Anti-Xa Level POC ABG pH ABG pH POC ABG pCO2 POC ABG pO2 ABG pO2 ABG HCO3 ABG O2 Saturation ABG Base Excess ABG Hemoglobin Oxyhemoglobin Sodium Potassium Chloride Carbon Dioxide BUN 54 H Creatinine 3.5 H Glucose POC Glucose 113 H 110 H Lactic Acid Calcium 11.4 H Ionized Calcium Phosphorus Magnesium Iron TIBC Ferritin Total Bilirubin Direct Bilirubin AST ALT Alkaline Phosphatase Total Creatine Kinase CK-MB (CK-2) Troponin T C-Reactive Protein Serum Total Protein Total Protein Albumin Kdbbd-9-Hubvfvqsl Wuhyc-4-Bptrsautw PEP Interpretation Triglycerides LDL Cholesterol Direct HDL Cholesterol Free T4 PTH Intact Urine WBC (Auto) Urine Creatinine Salicylates Acetaminophen Crossmatch 04/22/19 04/23/19 04/23/19 18:33 04:06 04:06 WBC 16.1 H RBC 3.36 L Hgb 9.8 L Hct 30.8 L MCV MCH MCHC RDW 17.7 H Plt Count Lymph % (Auto) 9.9 L Rich % (Auto) Eos % (Auto) Lymph # Rich # Eos # Seg Neutrophils % 84.2 H Seg Neuts % (Manual) Lymphocytes % (Manual) Monocytes % (Manual) Eosinophils % (Manual) Nucleated RBC % Seg Neutrophils # 13.6 H Seg Neutrophils # Man Lymphocytes # (Manual) Monocytes # (Manual) Eosinophils # (Manual) PT INR D-Dimer Heparin Anti-Xa Level POC ABG pH ABG pH POC ABG pCO2 POC ABG pO2 ABG pO2 ABG HCO3 ABG O2 Saturation ABG Base Excess ABG Hemoglobin Oxyhemoglobin Sodium Potassium Chloride Carbon Dioxide BUN 59 H Creatinine 3.8 H Glucose POC Glucose 120 H Lactic Acid Calcium 12.3 H* Ionized Calcium Phosphorus 5.70 H Magnesium Iron TIBC Ferritin Total Bilirubin Direct Bilirubin AST ALT Alkaline Phosphatase Total Creatine Kinase CK-MB (CK-2) Troponin T C-Reactive Protein Serum Total Protein Total Protein Albumin 3.2 L Inqbf-9-Rmpzzeniv Bwhht-4-Lhkqmyjpu PEP Interpretation Triglycerides LDL Cholesterol Direct HDL Cholesterol Free T4 PTH Intact Urine WBC (Auto) Urine Creatinine Salicylates Acetaminophen Crossmatch 04/23/19 04/24/19 04/24/19 18:06 04:12 04:12 WBC 18.0 H RBC 3.46 L Hgb 9.8 L Hct 31.2 L MCV MCH MCHC 31 L RDW 17.5 H Plt Count Lymph % (Auto) 11.1 L Rich % (Auto) Eos % (Auto) Lymph # Rich # Eos # Seg Neutrophils % 81.9 H Seg Neuts % (Manual) Lymphocytes % (Manual) Monocytes % (Manual) Eosinophils % (Manual) Nucleated RBC % Seg Neutrophils # 14.7 H Seg Neutrophils # Man Lymphocytes # (Manual) Monocytes # (Manual) Eosinophils # (Manual) PT INR D-Dimer Heparin Anti-Xa Level POC ABG pH ABG pH POC ABG pCO2 POC ABG pO2 ABG pO2 ABG HCO3 ABG O2 Saturation ABG Base Excess ABG Hemoglobin Oxyhemoglobin Sodium Potassium Chloride Carbon Dioxide BUN 56 H Creatinine 3.6 H Glucose POC Glucose 124 H Lactic Acid Calcium 12.6 H* Ionized Calcium Phosphorus Magnesium Iron TIBC Ferritin Total Bilirubin Direct Bilirubin AST ALT Alkaline Phosphatase Total Creatine Kinase CK-MB (CK-2) Troponin T C-Reactive Protein Serum Total Protein Total Protein Albumin 3.2 L Xjzpl-[id number] Yfdge-2-Dbjfzpppt PEP Interpretation Triglycerides LDL Cholesterol Direct HDL Cholesterol Free T4 PTH Intact Urine WBC (Auto) Urine Creatinine Salicylates Acetaminophen Crossmatch 04/24/19 04/24/19 04/25/19 06:21 11:47 05:58 WBC 18.0 H RBC 2.98 L Hgb 8.3 L Hct 26.5 L MCV MCH MCHC 31 L RDW 17.9 H Plt Count Lymph % (Auto) 10.1 L Rich % (Auto) Eos % (Auto) Lymph # Rich # 0.9 H Eos # Seg Neutrophils % 82.8 H Seg Neuts % (Manual) Lymphocytes % (Manual) Monocytes % (Manual) Eosinophils % (Manual) Nucleated RBC % Seg Neutrophils # 15.0 H Seg Neutrophils # Man Lymphocytes # (Manual) Monocytes # (Manual) Eosinophils # (Manual) PT INR D-Dimer Heparin Anti-Xa Level POC ABG pH ABG pH POC ABG pCO2 POC ABG pO2 ABG pO2 ABG HCO3 ABG O2 Saturation ABG Base Excess ABG Hemoglobin Oxyhemoglobin Sodium Potassium Chloride Carbon Dioxide BUN Creatinine Glucose POC Glucose 132 H 106 H Lactic Acid Calcium Ionized Calcium Phosphorus Magnesium Iron TIBC Ferritin Total Bilirubin Direct Bilirubin AST ALT Alkaline Phosphatase Total Creatine Kinase CK-MB (CK-2) Troponin T C-Reactive Protein Serum Total Protein Total Protein Albumin Cbcha-9-Fxfktcwnz Lxcpx-2-Irczbdbdt PEP Interpretation Triglycerides LDL Cholesterol Direct HDL Cholesterol Free T4 PTH Intact Urine WBC (Auto) Urine Creatinine Salicylates Acetaminophen Crossmatch 04/25/19 04/26/19 04/26/19 05:58 05:57 06:08 WBC RBC Hgb Hct MCV MCH MCHC RDW Plt Count Lymph % (Auto) Rich % (Auto) Eos % (Auto) Lymph # Rich # Eos # Seg Neutrophils % Seg Neuts % (Manual) Lymphocytes % (Manual) Monocytes % (Manual) Eosinophils % (Manual) Nucleated RBC % Seg Neutrophils # Seg Neutrophils # Man Lymphocytes # (Manual) Monocytes # (Manual) Eosinophils # (Manual) PT INR D-Dimer Heparin Anti-Xa Level POC ABG pH ABG pH POC ABG pCO2 POC ABG pO2 ABG pO2 ABG HCO3 ABG O2 Saturation ABG Base Excess ABG Hemoglobin Oxyhemoglobin Sodium Potassium 3.2 L Chloride Carbon Dioxide BUN 52 H 48 H Creatinine 3.2 H 2.9 H Glucose 108 H 112 H POC Glucose 109 H Lactic Acid Calcium 11.4 H 12.5 H* Ionized Calcium Phosphorus 5.90 H Magnesium Iron TIBC Ferritin Total Bilirubin Direct Bilirubin AST ALT Alkaline Phosphatase Total Creatine Kinase CK-MB (CK-2) Troponin T C-Reactive Protein Serum Total Protein Total Protein Albumin 3.0 L Ellna-1-Tkyrwjgbc Irvsl-7-Fessnjyqp PEP Interpretation Triglycerides LDL Cholesterol Direct HDL Cholesterol Free T4 PTH Intact Urine WBC (Auto) Urine Creatinine Salicylates Acetaminophen Crossmatch 04/26/19 04/26/19 04/27/19 07:22 13:39 05:05 WBC 11.9 H RBC 3.01 L Hgb 8.6 L Hct 26.3 L MCV MCH MCHC RDW 17.6 H Plt Count Lymph % (Auto) 11.9 L Rich % (Auto) Eos % (Auto) Lymph # Rich # Eos # Seg Neutrophils % 78.3 H Seg Neuts % (Manual) Lymphocytes % (Manual) Monocytes % (Manual) Eosinophils % (Manual) Nucleated RBC % Seg Neutrophils # 9.4 H Seg Neutrophils # Man Lymphocytes # (Manual) Monocytes # (Manual) Eosinophils # (Manual) PT INR D-Dimer Heparin Anti-Xa Level POC ABG pH ABG pH POC ABG pCO2 POC ABG pO2 ABG pO2 ABG HCO3 ABG O2 Saturation ABG Base Excess ABG Hemoglobin Oxyhemoglobin Sodium Potassium Chloride Carbon Dioxide BUN 46 H Creatinine 2.8 H Glucose POC Glucose Lactic Acid Calcium > 13.0 H* 12.2 H* Ionized Calcium Phosphorus Magnesium Iron TIBC Ferritin Total Bilirubin Direct Bilirubin AST ALT Alkaline Phosphatase Total Creatine Kinase CK-MB (CK-2) Troponin T C-Reactive Protein Serum Total Protein Total Protein Albumin Pbvjq-0-Vfycapckj Crgvx-4-Fpoemawoh PEP Interpretation Triglycerides LDL Cholesterol Direct HDL Cholesterol Free T4 PTH Intact Urine WBC (Auto) Urine Creatinine Salicylates Acetaminophen Crossmatch 04/27/19 04/28/19 04/29/19 05:05 05:17 14:14 WBC RBC Hgb Hct MCV MCH MCHC RDW Plt Count Lymph % (Auto) Rich % (Auto) Eos % (Auto) Lymph # Rich # Eos # Seg Neutrophils % Seg Neuts % (Manual) Lymphocytes % (Manual) Monocytes % (Manual) Eosinophils % (Manual) Nucleated RBC % Seg Neutrophils # Seg Neutrophils # Man Lymphocytes # (Manual) Monocytes # (Manual) Eosinophils # (Manual) PT INR D-Dimer Heparin Anti-Xa Level POC ABG pH ABG pH POC ABG pCO2 POC ABG pO2 ABG pO2 ABG HCO3 ABG O2 Saturation ABG Base Excess ABG Hemoglobin Oxyhemoglobin Sodium 136 L Potassium 3.2 L 3.4 L Chloride Carbon Dioxide BUN 40 H 34 H 33 H Creatinine 2.5 H 2.0 H 1.9 H Glucose 113 H 107 H POC Glucose Lactic Acid Calcium 12.3 H* 12.1 H* 11.5 H Ionized Calcium Phosphorus Magnesium Iron TIBC Ferritin Total Bilirubin Direct Bilirubin AST ALT Alkaline Phosphatase Total Creatine Kinase CK-MB (CK-2) Troponin T C-Reactive Protein Serum Total Protein Total Protein 6.2 L Albumin 2.8 L Koxjk-2-Wusbnsvwv Yrzxu-0-Gszlatkyy PEP Interpretation Triglycerides LDL Cholesterol Direct HDL Cholesterol Free T4 PTH Intact Urine WBC (Auto) Urine Creatinine Salicylates Acetaminophen Crossmatch 04/29/19 04/29/19 04/30/19 14:14 14:14 06:47 WBC RBC Hgb Hct MCV MCH MCHC RDW Plt Count Lymph % (Auto) Rich % (Auto) Eos % (Auto) Lymph # Rich # Eos # Seg Neutrophils % Seg Neuts % (Manual) Lymphocytes % (Manual) Monocytes % (Manual) Eosinophils % (Manual) Nucleated RBC % Seg Neutrophils # Seg Neutrophils # Man Lymphocytes # (Manual) Monocytes # (Manual) Eosinophils # (Manual) PT INR D-Dimer Heparin Anti-Xa Level POC ABG pH ABG pH POC ABG pCO2 POC ABG pO2 ABG pO2 ABG HCO3 ABG O2 Saturation ABG Base Excess ABG Hemoglobin Oxyhemoglobin Sodium Potassium 3.2 L Chloride Carbon Dioxide 21 L BUN 26 H Creatinine 1.8 H Glucose POC Glucose Lactic Acid Calcium 10.8 H Ionized Calcium 7.2 H* Phosphorus Magnesium Iron TIBC Ferritin Total Bilirubin Direct Bilirubin AST ALT Alkaline Phosphatase Total Creatine Kinase CK-MB (CK-2) Troponin T C-Reactive Protein Serum Total Protein Total Protein Albumin Jaswr-5-Jfrsfulym Azyim-6-Oazpkaenp PEP Interpretation Triglycerides LDL Cholesterol Direct HDL Cholesterol Free T4 PTH Intact 8.83 L Urine WBC (Auto) Urine Creatinine Salicylates Acetaminophen Crossmatch 04/30/19 05/01/19 05/01/19 12:17 06:52 06:52 WBC 15.4 H RBC 3.01 L Hgb 8.4 L Hct 26.2 L MCV MCH MCHC RDW 17.0 H Plt Count Lymph % (Auto) 8.4 L Rich % (Auto) 8.9 H Eos % (Auto) Lymph # Rich # 1.4 H Eos # 0.5 H Seg Neutrophils % 78.7 H Seg Neuts % (Manual) Lymphocytes % (Manual) Monocytes % (Manual) Eosinophils % (Manual) Nucleated RBC % Seg Neutrophils # 12.1 H Seg Neutrophils # Man Lymphocytes # (Manual) Monocytes # (Manual) Eosinophils # (Manual) PT INR D-Dimer Heparin Anti-Xa Level POC ABG pH ABG pH POC ABG pCO2 POC ABG pO2 ABG pO2 ABG HCO3 ABG O2 Saturation ABG Base Excess ABG Hemoglobin Oxyhemoglobin Sodium Potassium 3.0 L Chloride Carbon Dioxide BUN 22 H Creatinine Glucose POC Glucose 106 H Lactic Acid Calcium 11.2 H Ionized Calcium Phosphorus Magnesium Iron TIBC Ferritin Total Bilirubin Direct Bilirubin AST ALT Alkaline Phosphatase Total Creatine Kinase CK-MB (CK-2) Troponin T C-Reactive Protein Serum Total Protein Total Protein Albumin 3.0 L Ldadu-0-Itpkzvlfy Zvurp-9-Uxlfymarj PEP Interpretation Triglycerides LDL Cholesterol Direct HDL Cholesterol Free T4 PTH Intact Urine WBC (Auto) Urine Creatinine Salicylates Acetaminophen Crossmatch 05/01/19 05/01/19 05/02/19 06:52 18:40 05:32 WBC RBC Hgb Hct MCV MCH MCHC RDW Plt Count Lymph % (Auto) Rich % (Auto) Eos % (Auto) Lymph # Rich # Eos # Seg Neutrophils % Seg Neuts % (Manual) Lymphocytes % (Manual) Monocytes % (Manual) Eosinophils % (Manual) Nucleated RBC % Seg Neutrophils # Seg Neutrophils # Man Lymphocytes # (Manual) Monocytes # (Manual) Eosinophils # (Manual) PT INR D-Dimer Heparin Anti-Xa Level POC ABG pH ABG pH POC ABG pCO2 POC ABG pO2 ABG pO2 ABG HCO3 ABG O2 Saturation ABG Base Excess ABG Hemoglobin Oxyhemoglobin Sodium Potassium Chloride Carbon Dioxide BUN Creatinine Glucose POC Glucose 169 H 109 H Lactic Acid Calcium Ionized Calcium Phosphorus Magnesium Iron TIBC Ferritin Total Bilirubin Direct Bilirubin AST ALT Alkaline Phosphatase Total Creatine Kinase CK-MB (CK-2) Troponin T C-Reactive Protein Serum Total Protein 5.7 L Total Protein Albumin 2.5 L Ghxkn-2-Lhirhavns 0.5 H Djigq-5-Xiugjxkop PEP Interpretation see below H Triglycerides LDL Cholesterol Direct HDL Cholesterol Free T4 PTH Intact Urine WBC (Auto) Urine Creatinine Salicylates Acetaminophen Crossmatch 05/02/19 05/02/19 05/02/19 05:57 05:57 11:43 WBC 14.2 H RBC 2.96 L Hgb 8.3 L Hct 26.0 L MCV MCH MCHC RDW 16.8 H Plt Count Lymph % (Auto) Rich % (Auto) Eos % (Auto) Lymph # Rich # Eos # Seg Neutrophils % Seg Neuts % (Manual) Lymphocytes % (Manual) Monocytes % (Manual) Eosinophils % (Manual) Nucleated RBC % Seg Neutrophils # Seg Neutrophils # Man Lymphocytes # (Manual) Monocytes # (Manual) Eosinophils # (Manual) PT INR D-Dimer Heparin Anti-Xa Level POC ABG pH ABG pH POC ABG pCO2 POC ABG pO2 ABG pO2 ABG HCO3 ABG O2 Saturation ABG Base Excess ABG Hemoglobin Oxyhemoglobin Sodium 136 L Potassium 3.5 L Chloride Carbon Dioxide BUN 21 H Creatinine Glucose POC Glucose 108 H Lactic Acid Calcium 11.1 H Ionized Calcium Phosphorus Magnesium Iron TIBC Ferritin Total Bilirubin Direct Bilirubin AST ALT Alkaline Phosphatase Total Creatine Kinase CK-MB (CK-2) Troponin T C-Reactive Protein Serum Total Protein Total Protein Albumin Pqyxi-0-Ollsabusz Btbfj-0-Vmjxqzdik PEP Interpretation Triglycerides LDL Cholesterol Direct HDL Cholesterol Free T4 PTH Intact Urine WBC (Auto) Urine Creatinine Salicylates Acetaminophen Crossmatch 05/03/19 05/03/19 05/04/19 05:37 05:37 06:49 WBC 12.7 H 11.1 H RBC 3.01 L 3.07 L Hgb 8.3 L 8.6 L Hct 26.1 L 26.6 L MCV MCH MCHC RDW 16.9 H 17.3 H Plt Count Lymph % (Auto) Rich % (Auto) 9.0 H Eos % (Auto) 4.9 H Lymph # Rich # 1.0 H Eos # 0.5 H Seg Neutrophils % Seg Neuts % (Manual) Lymphocytes % (Manual) Monocytes % (Manual) Eosinophils % (Manual) Nucleated RBC % Seg Neutrophils # 7.8 H Seg Neutrophils # Man Lymphocytes # (Manual) Monocytes # (Manual) Eosinophils # (Manual) PT INR D-Dimer Heparin Anti-Xa Level POC ABG pH ABG pH POC ABG pCO2 POC ABG pO2 ABG pO2 ABG HCO3 ABG O2 Saturation ABG Base Excess ABG Hemoglobin Oxyhemoglobin Sodium 135 L Potassium 3.3 L Chloride Carbon Dioxide BUN Creatinine Glucose POC Glucose Lactic Acid Calcium 10.9 H Ionized Calcium Phosphorus Magnesium 1.50 L Iron TIBC Ferritin Total Bilirubin Direct Bilirubin AST ALT Alkaline Phosphatase Total Creatine Kinase CK-MB (CK-2) Troponin T C-Reactive Protein Serum Total Protein Total Protein Albumin Gqymo-7-Idoaonapn Towbd-8-Zrzkkpqyl PEP Interpretation Triglycerides LDL Cholesterol Direct HDL Cholesterol Free T4 PTH Intact Urine WBC (Auto) Urine Creatinine Salicylates Acetaminophen Crossmatch 05/04/19 05/04/19 05/04/19 06:49 06:49 11:58 WBC RBC Hgb Hct MCV MCH MCHC RDW Plt Count Lymph % (Auto) Rich % (Auto) Eos % (Auto) Lymph # Rich # Eos # Seg Neutrophils % Seg Neuts % (Manual) Lymphocytes % (Manual) Monocytes % (Manual) Eosinophils % (Manual) Nucleated RBC % Seg Neutrophils # Seg Neutrophils # Man Lymphocytes # (Manual) Monocytes # (Manual) Eosinophils # (Manual) PT 15.5 H INR 1.24 H D-Dimer Heparin Anti-Xa Level POC ABG pH ABG pH POC ABG pCO2 POC ABG pO2 ABG pO2 ABG HCO3 ABG O2 Saturation ABG Base Excess ABG Hemoglobin Oxyhemoglobin Sodium Potassium Chloride Carbon Dioxide 19 L BUN Creatinine Glucose POC Glucose 111 H Lactic Acid Calcium 10.7 H Ionized Calcium Phosphorus Magnesium Iron TIBC Ferritin Total Bilirubin Direct Bilirubin AST ALT Alkaline Phosphatase Total Creatine Kinase CK-MB (CK-2) Troponin T C-Reactive Protein Serum Total Protein Total Protein Albumin Lzraq-7-Ezoerahyk Nenjl-9-Jmblodpxf PEP Interpretation Triglycerides LDL Cholesterol Direct HDL Cholesterol Free T4 PTH Intact Urine WBC (Auto) Urine Creatinine Salicylates Acetaminophen Crossmatch 05/05/19 05/05/19 05/07/19 06:14 06:14 05:55 WBC 11.5 H 12.0 H RBC 3.08 L 3.33 L Hgb 8.5 L 9.2 L Hct 26.5 L 28.5 L MCV MCH MCHC RDW 17.1 H 17.6 H Plt Count Lymph % (Auto) Rich % (Auto) Eos % (Auto) 8.2 H Lymph # Rich # Eos # 1.0 H Seg Neutrophils % Seg Neuts % (Manual) Lymphocytes % (Manual) Monocytes % (Manual) Eosinophils % (Manual) Nucleated RBC % Seg Neutrophils # 8.2 H Seg Neutrophils # Man Lymphocytes # (Manual) Monocytes # (Manual) Eosinophils # (Manual) PT INR D-Dimer Heparin Anti-Xa Level POC ABG pH ABG pH POC ABG pCO2 POC ABG pO2 ABG pO2 ABG HCO3 ABG O2 Saturation ABG Base Excess ABG Hemoglobin Oxyhemoglobin Sodium 136 L Potassium Chloride Carbon Dioxide 21 L BUN Creatinine Glucose POC Glucose Lactic Acid Calcium 10.3 H Ionized Calcium Phosphorus Magnesium Iron TIBC Ferritin Total Bilirubin Direct Bilirubin AST ALT Alkaline Phosphatase Total Creatine Kinase CK-MB (CK-2) Troponin T C-Reactive Protein Serum Total Protein Total Protein Albumin Dcfso-7-Muxkqozcs Ggrmq-0-Gbtsbbabu PEP Interpretation Triglycerides LDL Cholesterol Direct HDL Cholesterol Free T4 PTH Intact Urine WBC (Auto) Urine Creatinine Salicylates Acetaminophen Crossmatch 05/07/19 05/08/19 05/08/19 05:55 07:27 07:27 WBC 12.5 H RBC 3.50 L Hgb 9.4 L Hct 30.4 L MCV MCH 27 L MCHC 31 L RDW 17.2 H Plt Count Lymph % (Auto) Rich % (Auto) Eos % (Auto) 10.3 H Lymph # Rich # Eos # 1.3 H Seg Neutrophils % Seg Neuts % (Manual) Lymphocytes % (Manual) Monocytes % (Manual) Eosinophils % (Manual) Nucleated RBC % Seg Neutrophils # 8.7 H Seg Neutrophils # Man Lymphocytes # (Manual) Monocytes # (Manual) Eosinophils # (Manual) PT INR D-Dimer Heparin Anti-Xa Level POC ABG pH ABG pH POC ABG pCO2 POC ABG pO2 ABG pO2 ABG HCO3 ABG O2 Saturation ABG Base Excess ABG Hemoglobin Oxyhemoglobin Sodium Potassium 3.5 L Chloride Carbon Dioxide 20 L 20 L BUN Creatinine Glucose POC Glucose Lactic Acid Calcium 10.7 H 10.7 H Ionized Calcium Phosphorus Magnesium Iron TIBC Ferritin Total Bilirubin Direct Bilirubin AST ALT Alkaline Phosphatase Total Creatine Kinase CK-MB (CK-2) Troponin T C-Reactive Protein Serum Total Protein Total Protein Albumin 3.2 L 3.4 L Riusd-1-Wnwwyrzbs Eriln-3-Nhgihkcmw PEP Interpretation Triglycerides LDL Cholesterol Direct HDL Cholesterol Free T4 PTH Intact Urine WBC (Auto) Urine Creatinine Salicylates Acetaminophen Crossmatch 05/09/19 05/09/19 05/10/19 05:41 05:41 06:42 WBC 11.7 H RBC 3.27 L Hgb 9.2 L Hct 27.9 L MCV MCH MCHC RDW 17.8 H Plt Count Lymph % (Auto) Rich % (Auto) Eos % (Auto) 14.3 H Lymph # Rich # Eos # 1.7 H Seg Neutrophils % Seg Neuts % (Manual) Lymphocytes % (Manual) Monocytes % (Manual) Eosinophils % (Manual) Nucleated RBC % Seg Neutrophils # Seg Neutrophils # Man Lymphocytes # (Manual) Monocytes # (Manual) Eosinophils # (Manual) PT INR 1.17 H D-Dimer Heparin Anti-Xa Level POC ABG pH ABG pH POC ABG pCO2 POC ABG pO2 ABG pO2 ABG HCO3 ABG O2 Saturation ABG Base Excess ABG Hemoglobin Oxyhemoglobin Sodium 136 L Potassium Chloride Carbon Dioxide 21 L BUN Creatinine Glucose POC Glucose Lactic Acid Calcium 10.6 H Ionized Calcium Phosphorus Magnesium Iron TIBC Ferritin Total Bilirubin Direct Bilirubin AST ALT Alkaline Phosphatase Total Creatine Kinase CK-MB (CK-2) Troponin T C-Reactive Protein Serum Total Protein Total Protein Albumin 3.3 L Dyckl-0-Ajrdhntrh Vwczy-1-Qxanknndc PEP Interpretation Triglycerides LDL Cholesterol Direct HDL Cholesterol Free T4 PTH Intact Urine WBC (Auto) Urine Creatinine Salicylates Acetaminophen Crossmatch 05/10/19 05/11/19 05/13/19 06:42 04:40 08:32 WBC 11.8 H RBC 3.48 L Hgb 9.5 L Hct 30.0 L MCV MCH 27 L MCHC RDW 18.0 H Plt Count Lymph % (Auto) Rich % (Auto) Eos % (Auto) Lymph # Rich # Eos # Seg Neutrophils % Seg Neuts % (Manual) 73.0 H Lymphocytes % (Manual) 11.0 L Monocytes % (Manual) Eosinophils % (Manual) 12.0 H Nucleated RBC % Seg Neutrophils # Seg Neutrophils # Man 8.6 H Lymphocytes # (Manual) Monocytes # (Manual) Eosinophils # (Manual) 1.4 H PT INR D-Dimer Heparin Anti-Xa Level POC ABG pH ABG pH POC ABG pCO2 POC ABG pO2 ABG pO2 ABG HCO3 ABG O2 Saturation ABG Base Excess ABG Hemoglobin Oxyhemoglobin Sodium Potassium Chloride Carbon Dioxide 21 L 20 L BUN Creatinine Glucose POC Glucose Lactic Acid Calcium Ionized Calcium Phosphorus Magnesium Iron TIBC Ferritin Total Bilirubin Direct Bilirubin AST ALT Alkaline Phosphatase Total Creatine Kinase CK-MB (CK-2) Troponin T C-Reactive Protein Serum Total Protein Total Protein Albumin Qptgl-3-Wppolqpai Sijkg-0-Eehvcnajg PEP Interpretation Triglycerides LDL Cholesterol Direct HDL Cholesterol Free T4 PTH Intact Urine WBC (Auto) Urine Creatinine Salicylates Acetaminophen Crossmatch 05/13/19 05/14/19 05/19/19 08:32 08:12 06:47 WBC RBC Hgb Hct MCV MCH MCHC RDW Plt Count Lymph % (Auto) Rich % (Auto) Eos % (Auto) Lymph # Rich # Eos # Seg Neutrophils % Seg Neuts % (Manual) Lymphocytes % (Manual) Monocytes % (Manual) Eosinophils % (Manual) Nucleated RBC % Seg Neutrophils # Seg Neutrophils # Man Lymphocytes # (Manual) Monocytes # (Manual) Eosinophils # (Manual) PT INR D-Dimer Heparin Anti-Xa Level POC ABG pH ABG pH POC ABG pCO2 POC ABG pO2 ABG pO2 ABG HCO3 ABG O2 Saturation ABG Base Excess ABG Hemoglobin Oxyhemoglobin Sodium Potassium Chloride Carbon Dioxide 17 L 18 L 18 L BUN Creatinine Glucose 73 L POC Glucose Lactic Acid Calcium Ionized Calcium Phosphorus Magnesium 1.60 L Iron TIBC Ferritin Total Bilirubin Direct Bilirubin AST ALT Alkaline Phosphatase Total Creatine Kinase CK-MB (CK-2) Troponin T C-Reactive Protein Serum Total Protein Total Protein Albumin 3.3 L Ffzkv-9-Ejwphgueo Noymj-7-Fjvhbsmde PEP Interpretation Triglycerides LDL Cholesterol Direct HDL Cholesterol Free T4 PTH Intact Urine WBC (Auto) Urine Creatinine Salicylates Acetaminophen Crossmatch 05/20/19 05/20/19 05/21/19 06:34 06:34 07:06 WBC RBC 3.22 L Hgb 9.0 L Hct 27.9 L MCV MCH MCHC RDW 18.0 H Plt Count Lymph % (Auto) Rich % (Auto) Eos % (Auto) Lymph # Rich # Eos # Seg Neutrophils % Seg Neuts % (Manual) Lymphocytes % (Manual) Monocytes % (Manual) Eosinophils % (Manual) 12.0 H Nucleated RBC % Seg Neutrophils # Seg Neutrophils # Man Lymphocytes # (Manual) Monocytes # (Manual) Eosinophils # (Manual) 1.1 H PT INR D-Dimer Heparin Anti-Xa Level POC ABG pH ABG pH POC ABG pCO2 POC ABG pO2 ABG pO2 ABG HCO3 ABG O2 Saturation ABG Base Excess ABG Hemoglobin Oxyhemoglobin Sodium Potassium Chloride Carbon Dioxide BUN Creatinine Glucose POC Glucose Lactic Acid Calcium Ionized Calcium Phosphorus 2.20 L 2.30 L Magnesium Iron TIBC Ferritin Total Bilirubin Direct Bilirubin AST ALT Alkaline Phosphatase Total Creatine Kinase CK-MB (CK-2) Troponin T C-Reactive Protein Serum Total Protein Total Protein Albumin Xpthm-6-Cjnuodjjc Jdivi-8-Pbzxuubya PEP Interpretation Triglycerides LDL Cholesterol Direct HDL Cholesterol Free T4 PTH Intact Urine WBC (Auto) Urine Creatinine Salicylates Acetaminophen Crossmatch Allied health notes reviewed: nursing
--- NOTE | 2019-05-21 16:13 | XRay Report ---
CHEST 2 VIEWS INDICATION: Hemoptysis.. COMPARISON: 04/29/2019 FINDINGS: Support devices: None. Heart: Within normal limits. Lungs/pleura: A new small to medium hazy opacity has developed at the right lung base since the previ ous exam. It is unclear if this represents a subpulmonic right pleural effusion or right lower lobe a telectasis. No pneumothorax. Additional findings: None. IMPRESSION: Right lower lobe opacity as described. Signer Name: Linus Cantu Jr, MD Signed: 05/21/2019 4:09 PM Workstation Name: [id number]
--- NOTE | 2019-05-21 18:46 | Progress Note ---
Assessment and Plan Assessment and plan: Hypophosphatemia; replace with sodium phosphate . monitor electrolytes Peripheral neuropathy. Neurology evaluated patient will need EMG/MCV to rule out axonal versus demyelinating disease. Workup can be done as an outpatient. Bilateral lower extremity DVTs. Patient will be scheduled for placement of IVC filter. 3 months after discharge, the patient will need to be scheduled for IVC filter removal with repeat ultrasound at that time to evaluate the patient's bilateral lower extremity DVTs. - Acute hypoxic respiratory failure. Was intubated, but now extubated. Now on Room air. Continue BiPAP as clinically indicated. - Atrial fibrillation. Resolved. Continue Metoprolol. Cardiology following. No recurrence of AFib or VT noted for several weeks since resolution of multiple metabolic derangements and thus no plans for initiation of systemic AC or AICD implantation at this time. - Abnormal Lexiscan stress with ejection fraction of 45% S/p LHC this AM which showed normal coronaries, normal EF. - Acute blood loss anemia. Patient with GI bleed secondary to peptic ulcer disease. EGD completed per GI. Continue PRBCs as needed. - GI bleed/peptic ulcer disease. Continue PPI. Transfuse PRBCs as needed. - Sepsis/septic shock. Resolved. Continue to monitor off antibiotics - Ischemic hepatitis/shock liver. Resolved. Viral hepatitis panel negative. - Acute kidney injury. Resolved. Patient's last hemodialysis 04/20/19. Continue to monitor BMP. Avoid nephrotoxic agents. - Toxic metabolic encephalopathy. Resolved. - Swelling both upper ext L>R Doppler US : no DVT LUE --Critical illness myopathy, bilateral foot drop Physical therapy and occupational therapy - Hypokalemia. Replete potassium as needed. - Thrombocytopenia. Etiology likely secondary to sepsis. Resolved. - Rhabdomyolysis. CK normalized. Full code status Disposition. Awaiting for arrangements for SNF in [place] History Interval history: Patient seen and examined medical records reviewed Since better no new complaints Concerned about lower extremity weakness and footdrop Vital signs noted Hospitalist Physical - Constitutional Vitals: Temp Pulse Resp BP Pulse Ox 97.9 F 86 20 129/76 98 05/21/19 17:21 05/21/19 17:21 05/21/19 17:21 05/21/19 17:21 05/21/19 17:21 General appearance: Present: no acute distress, well-nourished - EENT Eyes: Present: PERRL, EOM intact - Neck Neck: Present: supple, normal ROM - Respiratory Respiratory effort: normal Respiratory: bilateral: diminished, negative: rales, rhonchi, wheezing - Cardiovascular Rhythm: regular Heart Sounds: Present: S1 & S2 - Extremities Extremities: no ischemia, abnormal (foot drop, and weakness) - Abdominal General gastrointestinal: soft, non-tender, non-distended, normal bowel sounds - Integumentary Integumentary: Present: clear, warm - Psychiatric Psychiatric: appropriate mood/affect, cooperative - Neurologic Neurologic: other (residual weakness) Results - Labs CBC & Chem 7: 05/20/19 06:34 05/19/19 06:47 Labs: Laboratory Last Values WBC 9.1 K/mm3 (4.5-11.0) 05/20/19 06:34 RBC 3.22 M/mm3 (3.65-5.03) L 05/20/19 06:34 Hgb 9.0 gm/dl (11.8-15.2) L 05/20/19 06:34 Hct 27.9 % (35.5-45.6) L 05/20/19 06:34 MCV 87 fl (84-94) 05/20/19 06:34 MCH 28 pg (28-32) 05/20/19 06:34 MCHC 32 % (32-34) 05/20/19 06:34 RDW 18.0 % (13.2-15.2) H 05/20/19 06:34 Plt Count 351 K/mm3 (140-440) 05/20/19 06:34 Lymph % (Auto) 17.9 % (13.4-35.0) 05/09/19 05:41 [place] % (Auto) 5.6 % (0.0-7.3) 05/09/19 05:41 Eos % (Auto) Celery Cutter 05/20/19 06:34 Baso % (Auto) 0.7 % (0.0-1.8) 05/09/19 05:41 Lymph # 2.1 K/mm3 (1.2-5.4) 05/09/19 05:41 [place] # 0.7 K/mm3 (0.0-0.8) 05/09/19 05:41 Eos # 1.7 K/mm3 (0.0-0.4) H 05/09/19 05:41 Baso # 0.1 K/mm3 (0.0-0.1) 05/09/19 05:41 Add Manual Diff Complete 05/20/19 06:34 Total Counted 100 05/20/19 06:34 Seg Neutrophils % 61.5 % (40.0-70.0) 05/09/19 05:41 Seg Neuts % (Manual) 61.0 % (40.0-70.0) 05/20/19 06:34 Band Neutrophils % 0 % 05/20/19 06:34 Lymphocytes % (Manual) 25.0 % (13.4-35.0) 05/20/19 06:34 Reactive Lymphs % (Man) 0 % 05/20/19 06:34 Monocytes % (Manual) 2.0 % (0.0-7.3) 05/20/19 06:34 Eosinophils % (Manual) 12.0 % (0.0-4.3) H 05/20/19 06:34 Basophils % (Manual) 0 % (0.0-1.8) 05/20/19 06:34 Metamyelocytes % 0 % 05/20/19 06:34 Myelocytes % 0 % 05/20/19 06:34 Promyelocytes % 0 % 05/20/19 06:34 Blast Cells % 0 % 05/20/19 06:34 Nucleated RBC % Not Reportable 05/20/19 06:34 Seg Neutrophils # 7.2 K/mm3 (1.8-7.7) 05/09/19 05:41 Seg Neutrophils # Man 5.6 K/mm3 (1.8-7.7) 05/20/19 06:34 Band Neutrophils # 0.0 K/mm3 05/20/19 06:34 Lymphocytes # (Manual) 2.3 K/mm3 (1.2-5.4) 05/20/19 06:34 Abs React Lymphs (Man) 0.0 K/mm3 05/20/19 06:34 Monocytes # (Manual) 0.2 K/mm3 (0.0-0.8) 05/20/19 06:34 Eosinophils # (Manual) 1.1 K/mm3 (0.0-0.4) H 05/20/19 06:34 Basophils # (Manual) 0.0 K/mm3 (0.0-0.1) 05/20/19 06:34 Metamyelocytes # 0.0 K/mm3 05/20/19 06:34 Myelocytes # 0.0 K/mm3 05/20/19 06:34 Promyelocytes # 0.0 K/mm3 05/20/19 06:34 Blast Cells # 0.0 K/mm3 05/20/19 06:34 WBC Morphology Not Reportable 05/20/19 06:34 Hypersegmented Neuts Not Reportable 05/20/19 06:34 Hyposegmented Neuts Not Reportable 05/20/19 06:34 Hypogranular Neuts Not Reportable 05/20/19 06:34 Smudge Cells Not Reportable 05/20/19 06:34 Toxic Granulation Not Reportable 05/20/19 06:34 Toxic Vacuolation Not Reportable 05/20/19 06:34 Dohle Bodies Not Reportable 05/20/19 06:34 Pelger-Huet Anomaly Not Reportable 05/20/19 06:34 Joyce Rods Not Reportable 05/20/19 06:34 Platelet Estimate Consistent w auto 05/20/19 06:34 Clumped Platelets Not Reportable 05/20/19 06:34 Plt Clumps, EDTA Not Reportable 05/20/19 06:34 Large Platelets Few 05/20/19 06:34 Giant Platelets Not Reportable 05/20/19 06:34 Platelet Satelliting Not Reportable 05/20/19 06:34 Plt Morphology Comment Not Reportable 05/20/19 06:34 RBC Morphology Not Reportable 05/20/19 06:34 Dimorphic RBCs Not Reportable 05/20/19 06:34 Polychromasia Not Reportable 05/20/19 06:34 Hypochromasia Not Reportable 05/20/19 06:34 Poikilocytosis Not Reportable 05/20/19 06:34 Anisocytosis 1+ 05/20/19 06:34 Microcytosis Not Reportable 05/20/19 06:34 Macrocytosis Not Reportable 05/20/19 06:34 Spherocytes Not Reportable 05/20/19 06:34 Pappenheimer Bodies Not Reportable 05/20/19 06:34 Sickle Cells Not Reportable 05/20/19 06:34 Target Cells Not Reportable 05/20/19 06:34 Tear Drop Cells Not Reportable 05/20/19 06:34 Ovalocytes Not Reportable 05/20/19 06:34 Stomatocytes Few 03/26/19 Unknown Helmet Cells Not Reportable 05/20/19 06:34 Shrestha-Ship Bottom Bodies Not Reportable 05/20/19 06:34 [place] Rings Not Reportable 05/20/19 06:34 Samantha Cells Not Reportable 05/20/19 06:34 Bite Cells Not Reportable 05/20/19 06:34 Crenated Cell Not Reportable 05/20/19 06:34 Elliptocytes Few 05/20/19 06:34 Acanthocytes (Spur) Not Reportable 05/20/19 06:34 Rouleaux Not Reportable 05/20/19 06:34 Hemoglobin C Crystals Not Reportable 05/20/19 06:34 Schistocytes Not Reportable 05/20/19 06:34 Malaria parasites Not Reportable 05/20/19 06:34 Phil Bodies Not Reportable 05/20/19 06:34 Hem Pathologist Commnt No 05/20/19 06:34 PT 14.8 Sec. (12.2-14.9) 05/10/19 06:42 INR 1.17 (0.87-1.13) H 05/10/19 06:42 APTT 27.9 Sec. (24.2-36.6) 05/10/19 06:42 Fibrinogen 226 mg/dl (211-480) 03/28/19 12:00 D-Dimer 4845.98 ng/mlDDU (0-234) H 03/28/19 12:00 Heparin Anti-Xa Level 0.23 U.I./ml (0.3-0.7) L 03/28/19 05:13 POC ABG pH 7.401 (7.35-7.45) 04/07/19 12:57 ABG pH 7.388 pH Units (7.350-7.450) 04/06/19 05:20 POC ABG pCO2 41.5 (35-45) 04/07/19 12:57 ABG pCO2 38.5 mm Hg 04/06/19 05:20 POC ABG pO2 107 (80-105) H 04/07/19 12:57 ABG pO2 104.0 mm Hg (80.0-90.0) H 04/06/19 05:20 POC ABG HCO3 25.7 (22-26 mml/L) 04/07/19 12:57 ABG HCO3 22.6 mmol/L (20.0-26.0) 04/06/19 05:20 POC ABG Total CO2 27 (23-27mmol/L) 04/07/19 12:57 POC ABG O2 Sat 98 04/07/19 12:57 ABG O2 Saturation 97.8 % (95.0-99.0) 04/06/19 05:20 ABG O2 Content 10.0 (0.0-44) 04/06/19 05:20 POC ABG Base Excess 1 ((-2) - (+3)mmol/L) 04/07/19 12:57 ABG Base Excess -2.1 mmol/L (-2.0-3.0) L 04/06/19 05:20 ABG Hemoglobin 7.3 gm/dl (14.0-18.0) L 04/06/19 05:20 ABG Carboxyhemoglobin 1.7 % (0.0-5.0) 04/06/19 05:20 ABG Methemoglobin 0.6 % (0.0-1.5) 04/06/19 05:20 Oxyhemoglobin 95.5 % (95.0-99.0) 04/06/19 05:20 FiO2 30 % 04/07/19 12:57 Sodium 139 mmol/L (137-145) 05/19/19 06:47 Potassium 4.1 mmol/L (3.6-5.0) 05/19/19 06:47 Chloride 106.8 mmol/L (98-107) 05/19/19 06:47 Carbon Dioxide 18 mmol/L (22-30) L 05/19/19 06:47 Anion Gap 18 mmol/L 05/19/19 06:47 BUN 10 mg/dL (9-20) 05/19/19 06:47 Creatinine 0.8 mg/dL (0.8-1.5) 05/19/19 06:47 Estimated GFR > 60 ml/min 05/19/19 06:47 BUN/Creatinine Ratio 13 % 05/19/19 06:47 Glucose 87 mg/dL (75-100) 05/19/19 06:47 POC Glucose 86 (70-105) 05/11/19 02:24 Lactic Acid 1.90 mmol/L (0.7-2.0) 03/21/19 21:31 Calcium 8.8 mg/dL (8.4-10.2) 05/19/19 06:47 Ionized Calcium 7.2 mg/dL (4.8-5.6) H* 04/29/19 14:14 Phosphorus 2.30 mg/dL (2.5-4.5) L 05/21/19 07:06 Magnesium 1.70 mg/dL (1.7-2.3) 05/21/19 07:06 Iron 26 ug/dL (49-181) L 04/02/19 05:03 TIBC 138 mcg/dL (250-450) L 04/02/19 05:03 Ferritin 607.0 ng/mL (13.0-400.0) H 04/02/19 05:03 Total Bilirubin 0.30 mg/dL (0.1-1.2) 05/13/19 08:32 Direct Bilirubin 0.4 mg/dL (0-0.2) H 03/31/19 08:20 Indirect Bilirubin 0.1 mg/dL 03/31/19 08:20 AST 11 units/L (5-40) 05/13/19 08:32 ALT 12 units/L (7-56) 05/13/19 08:32 Alkaline Phosphatase 77 units/L (35-129) 05/13/19 08:32 Total Creatine Kinase 62 units/L (55-170) 04/07/19 05:40 CK-MB (CK-2) 54.3 ng/mL (0.0-4.0) H 03/17/19 07:16 CK-MB (CK-2) Rel Index 0.0 (0-4) 03/17/19 07:16 Troponin T 0.058 ng/mL (0.00-0.029) H 03/17/19 07:16 C-Reactive Protein 7.10 mg/dL (0.00-1.30) H 04/17/19 04:15 Serum Total Protein 5.7 g/dL (6.1-8.1) L 05/01/19 06:52 Total Protein 6.9 g/dL (6.3-8.2) 05/13/19 08:32 Albumin 3.3 g/dL (3.9-5) L 05/13/19 08:32 Albumin/Globulin Ratio 0.9 % 05/13/19 08:32 Voqyy-1-Fqmtelkem 0.5 g/dL (0.2-0.3) H 05/01/19 06:52 Dbbpi-4-Yltincqvz 0.9 g/dL (0.5-0.9) 05/01/19 06:52 Beta Globulins 0.4 g/dL (0.2-0.5) 05/01/19 06:52 Gamma Globulins 1.0 g/dL (0.8-1.7) 05/01/19 06:52 Abnorm Protein Band 1 see below 05/01/19 06:52 PEP Interpretation see below H 05/01/19 06:52 Triglycerides 309 mg/dL (2-149) H 03/29/19 06:22 Cholesterol 88 mg/dL (50-199) 03/16/19 22:32 LDL Cholesterol Direct 10 mg/dL (50-130) L 03/16/19 22:32 HDL Cholesterol 7 mg/dL (40-59) L 03/16/19 22:32 Cholesterol/HDL Ratio 12.57 % 03/16/19 22:32 Vitamin B12 903.0 pg/mL (211-911) 04/02/19 05:03 25-OH Vitamin D Total See scanned result 04/29/19 14:14 25-Hydroxy Vitamin D2 <4 ng/mL 04/29/19 14:14 1,25 Dihydroxy Vit D2 <8 pg/mL 04/29/19 14:14 25-Hydroxy Vitamin D3 11 ng/mL 04/29/19 14:14 1,25 Dihydroxy Vit D3 <8 pg/mL 04/29/19 14:14 Folate 8.05 ng/mL (7.3-26.0) 04/02/19 05:03 Procalcitonin 25.42 ng/mL (<0.15) 03/27/19 19:21 TSH 2.200 mlU/mL (0.270-4.200) 03/16/19 17:05 Free T4 0.72 ng/dL (0.76-1.46) L 03/16/19 17:05 PTH Intact 8.83 pg/mL (15-65) L 04/29/19 14:14 Urine Color Yellow (Yellow) 04/15/19 22:11 Urine Turbidity Clear (Clear) 04/15/19 22:11 Urine pH 6.0 (5.0-7.0) 04/15/19 22:11 Ur Specific [place] 1.010 (1.003-1.030) 04/15/19 22:11 Urine Protein 30 mg/dl mg/dL (Negative) 04/15/19 22:11 Urine Glucose (UA) Neg mg/dL (Negative) 04/15/19 22:11 Urine Ketones Neg mg/dL (Negative) 04/15/19 22:11 Urine Blood Mod (Negative) 04/15/19 22:11 Urine Nitrite Neg (Negative) 04/15/19 22:11 Urine Bilirubin Neg (Negative) 04/15/19 22:11 Urine Urobilinogen < 2.0 mg/dL (<2.0) 04/15/19 22:11 Ur Leukocyte Esterase Neg (Negative) 04/15/19 22:11 Urine WBC (Auto) 4.0 /HPF (0.0-6.0) 04/15/19 22:11 Urine RBC (Auto) 2.0 /HPF (0.0-6.0) 04/15/19 22:11 U Epithel Cells (Auto) < 1.0 /HPF (0-13.0) 04/15/19 22:11 Amorphous Crystals 1+ 04/05/19 16:50 Urine Mucus Few /HPF 03/17/19 16:05 Urine Sperm 2+ /HPF ([employer]) 03/17/19 16:05 Urine Eosinophils None seen (None Seen) 03/17/19 16:05 Ur Random Creatinine See scanned result 05/01/19 06:15 U Random Total Protein See scanned result 05/01/19 06:15 Urine Creatinine 106.6 mg/dL (0.1-20.0) H 03/17/19 16:05 Protein/Creatinin Ratio See scanned result 05/01/19 06:15 Urine Sodium 95 mmol/L 03/17/19 16:05 U Abnormal Prot Band 1 See scanned result 05/01/19 06:15 U Abnormal Prot Band 2 See scanned result 05/01/19 06:15 U Abnormal Prot Band 3 See scanned result 05/01/19 06:15 Vancomycin Trough 11.5 ug/mL (5.0-20.0) 03/18/19 13:19 Random Vancomycin 10.8 ug/mL (0-40.0) 04/14/19 03:55 Salicylates < 0.3 mg/dL (2.8-20.0) L 03/16/19 17:05 Urine Opiates Screen Presumptive negative 03/17/19 16:05 Urine Methadone Screen Presumptive negative 03/17/19 16:05 Acetaminophen < 5.0 ug/mL (10.0-30.0) L 03/16/19 17:05 Ur Barbiturates Screen Presumptive negative 03/17/19 16:05 Ur Phencyclidine Scrn Presumptive negative 03/17/19 16:05 Ur Amphetamines Screen Presumptive negative 03/17/19 16:05 U Benzodiazepines Scrn Presumptive positive 03/17/19 16:05 Urine Cocaine Screen Presumptive negative 03/17/19 16:05 U Marijuana (THC) Screen Presumptive negative 03/17/19 16:05 Drugs of Abuse Note Disclamer 03/17/19 16:05 Plasma/Serum Alcohol < 0.01 % (0-0.07) 03/16/19 17:05 Immunofix Electrophor see below 05/01/19 06:52 LANDY Screen Negative (Negative) 04/17/19 04:15 Proteinase 3 (PR3) Ab <1.0 AI (<1.0) 04/21/19 04:22 Myeloperoxidase Ab <1.0 AI (<1.0) 04/21/19 04:22 Glomerular Base Mem IgG See scanned result 04/21/19 04:22 Complement C3 150 mg/dL (82-185) 04/17/19 04:15 Complement C4 37 mg/dL (15-53) 04/17/19 04:15 Hepatitis A IgM Ab Non-reactive (NonReactive) 04/18/19 10:02 Hep Bs Antigen Non-reactive (Negative) 04/18/19 10:02 Hep B Core IgM Ab Non-reactive (NonReactive) 04/18/19 10:02 Hepatitis C Antibody Non-reactive (NonReactive) 04/18/19 10:02 HIV 1&2 Antibody Rapid Non react (Non React) 03/17/19 11:52 HIV P24 Antigen Non react (Non React) 03/17/19 11:52 Influenza A (Rapid) Negative (Negative) 03/17/19 17:00 Influenza B (Rapid) Negative (Negative) 03/17/19 17:00 Group A Strep Rapid Negative (Negative) 03/17/19 17:00 Miscellaneous Test Flexitest 1 03/21/19 12:00 Blood Type A POSITIVE 04/02/19 16:34 Antibody Screen Negative 04/02/19 16:34 Crossmatch See Detail 04/02/19 16:34 Active Medications - Current Medications Current Medications: Generic Name Dose Route Start Last Admin Trade Name Freq PRN Reason Stop Dose Admin Acetaminophen 650 mg 04/02/19 23:26 05/08/19 21:01 Tylenol PO 650 mg Q4H PRN Administration Pain, Mild (1-3),temp>100.5 Acetaminophen/Hydrocodone Bitart 1 each 05/02/19 11:50 05/21/19 14:59 [place] 5/325 PO 1 each Q6H PRN Administration Pain, Moderate (4-6) Al Hydrox/Mg Hydrox/Simethicone 15 ml 04/30/19 15:15 04/30/19 15:53 Alum-Mag Hydrox-Simeth 178-394-70bm/5ml PO 15 ml Q4H PRN Administration Indigestion Albuterol 2.5 mg 03/29/19 13:08 Proventil IH Q4HRT PRN Shortness Of Breath Lipase/Protease/Amylase 1 each 04/20/19 13:17 Pancreaze 10,500 Unit FEEDTUBE PRN PRN For Clogged Feeding Tube Bacitracin 1 applic 04/17/19 08:00 Antibiotic Oint TP Q4H PRN upper lip sore/open Dextrose 50 gm 04/17/19 08:00 D50w (25gm) Vial IV Q1H PRN Hypoglycemia Gabapentin 300 mg 05/17/19 14:40 05/21/19 14:59 Gabapentin PO 300 mg Q8HR PAOLO Administration Hydrophilic Ointment 1 applic 03/16/19 15:50 04/19/19 18:24 Vaseline Lip Therapy TP 1 applic Q2HR PRN Administration Dry Lips Sodium Chloride 500 mls @ 50 mls/hr 05/10/19 08:00 05/11/19 06:55 Nacl 0.9% 500 Ml IV 50 mls/hr DIRECT PAOLO Administration Melatonin 5 mg 04/26/19 21:00 05/20/19 22:10 Melatonin PO 5 mg QHS PRN Administration Sleep Metoprolol Succinate 50 mg 05/10/19 10:00 05/21/19 11:17 Metoprolol Xl PO 50 mg QDAY PAOLO Administration Multi-Ingred Cream/Lotion/Oil/Oint 1 applic 03/16/19 15:50 03/19/19 20:10 Artificial Tears Ophth Oint OU 1 applic Q4HR PRN Administration Dry Eye(s) Pantoprazole Sodium 40 mg 05/07/19 22:00 05/21/19 11:17 Protonix PO 40 mg BID PAOLO Administration Potassium Phos/Sodium Phos 1 each 05/21/19 10:00 05/21/19 11:16 Phos-Nak PO 1 each Q12HR PAOLO Administration Simple Syrup 15 ml 04/20/19 13:17 Simple Syrup FEEDTUBE PRN PRN Hypoglycemia Simple Syrup 30 ml 04/20/19 13:29 05/01/19 17:57 Simple Syrup FEEDTUBE 30 ml PRN PRN Administration Hypoglycemia Sodium Bicarbonate 325 mg 04/20/19 13:17 04/27/19 11:03 Sodium Bicarbonate FEEDTUBE 325 mg PRN PRN Administration For Clogged Feeding Tube Nutrition/Malnutrition Assess - Dietary Evaluation Nutrition/Malnutrition Findings: Nutrition Notes Start: 03/17/19 14:22 Freq: Status: Active Protocol: Document 05/18/19 11:01 AIYANA (Rec: 05/18/19 11:46 AIYANA [id number]) Co-Sign 05/18/19 11:01 LP Nutrition Notes Initial or Follow up Reassessment Current Diagnosis Sepsis Other Pertinent Diagnosis GIB, afib Current Diet Regular + Ensure Clear 2 times daily Labs/Tests Reviewed Pertinent Medications Reviewed Height 6 ft Weight 89.2 kg [place] Body Weight (kg) 80.90 BMI 26.6 Weight change and time frame Re-weighed pt. Possible inaccurate bed scale. Subjective/Other Information F/U for ONS and PO intakes. Pt stated his appetite is good. Eating an average 50% of meals due to not liking some meals. Pt stated he hasn't been getting ensure clear because they are out of them, but when he gets them he drinks them. Percent of energy/protein needs met: 57%/48% Burn Absent Trauma Absent Minimum of two criteria No #1 Nutrition Diagnosis Inadequate oral intake As Evidenced by Signs and Symptoms Pt meeting 57%/48% of energy and protein needs. Diagnosis Progress(for reassessment Worsened documentation) Is patient on ventilator? No Is Patient Ambulatory and/or Out of Bed Yes REE-([place]. Jeor-ambulatory/OOB) [ 0159.500 [id number]] Kcal/Kg value to use for calculation 23 Approximate Energy Requirements Using 2051 kcal/Kg Calculation Used for Recommendations Kcal/kg Additional Notes Protein Needs: 91-114g (0.8-1g /kg 114kg adjBW) Fluid needs 1ml/kcal Calorie recommendation adjusted to meet needs for previously recorded wt. Nutrition Intervention Change Diet Order: Continue current Add Supplement/Snack (indicate name/kcal Ensure Clear BID /protein ) Provides kCal: 480 Provides Protein (gm) 16 Goal #1 Continue to meet at least 75% of kcal/PRO needs via PO and ONS intakes Anticipated Discharge Needs: Regular diet Follow-Up By: 05/23/19 Additional Comments Follow for PO and ONS intakes
--- NOTE | 2019-05-22 05:37 | Hem/Onc Progress Note ---
Assessment and Plan 1. h/o Anemia. The patient has history of bleeding. 2. rt Internal jugular partial thrombosis. The patient was started on heparin. This has been held due to bleeding LATER LEG DVT - s/p IVC filter 3. h/o Gastrointestinal bleed. 4. h/o Elevated creatinine kinase. 5. h/o Low calcium. 6. h/o Thrombocytopenia. 7. h/o Renal failure. 8. h/o Intubation. 9. s/p Transfusion support. 10. Leukocytosis. At this time, supportive care may help the patient. The patient's platelet was low at admission. Urine toxicology was negative. awake h/o rt IJ dvt - off anticoagulation - due to bleeding platelet - > 100 s/p iv iron trial pt was on BIPAP - then o2 support h/o tachycardia - on meds - RT IJ line remvoed moving arms>legs left arm swelling -dvt study negative for left arm rt IJ dvt is better d/w pt reg DVT - bleed - anemia psych was consulted placement being looked into h/o hypercalcemia - likely sec to immobilization pt got pamidronate and hydration his calcium was low at admission s/p calcitonin calcium was high - later better. b/l leg DVT - s/p IVC filter - Patient Problems (1) DVT (deep venous thrombosis) Current Visit: Yes Status: Acute Subjective Date of service: 05/22/19 Principal diagnosis: DVT Interval history: getting therapy no bleeding Objective - Exam Narrative Exam: Pain - none now General appearance - awake Performance status limited self care Eyes - no icterus ENT - on o2 LNs cervical not palpable Neck - no LN Respiratory Normal Breath sounds - CTA anteriorly CVS S1 S2 + Extremities edema + better General GI Soft Rectal deferred male - deferred Skin warm Musculoskeletal moves arms>legs Neurologically awake - Constitutional Vitals: Last Vital Signs Temp 97.7 F 05/21/19 23:28 Pulse 76 05/21/19 23:28 Resp 18 05/21/19 23:28 BP 115/64 05/21/19 23:28 Pulse Ox 95 05/21/19 23:28 - Labs Lab Results: Laboratory Results - last 24 hr 05/21/19 07:06 Phosphorus 2.30 L Magnesium 1.70 Medications & Allergies - Medications Allergies/Adverse Reactions: Allergies No Known Allergies Allergy (Unverified 03/16/19 17:17) Home Medications: Home Medications Medication Instructions Recorded Confirmed Last Taken Type No Known Home Medications [No 04/28/19 04/28/19 Unknown History Reported Home Medications] Active Medications: Generic Name Dose Route Start Last Admin Trade Name [place] PRN Reason Stop Dose Admin Acetaminophen 650 mg 04/02/19 23:26 05/08/19 21:01 Tylenol PO 650 mg Q4H PRN Administration Pain, Mild (1-3),temp>100.5 Acetaminophen/Hydrocodone Bitart 1 each 05/02/19 11:50 05/21/19 21:10 [place] 5/325 PO 1 each Q6H PRN Administration Pain, Moderate (4-6) Al Hydrox/Mg Hydrox/Simethicone 15 ml 04/30/19 15:15 04/30/19 15:53 Alum-Mag Hydrox-Simeth 930-849-49wj/5ml PO 15 ml Q4H PRN Administration Indigestion Albuterol 2.5 mg 03/29/19 13:08 Proventil IH Q4HRT PRN Shortness Of Breath Lipase/Protease/Amylase 1 each 04/20/19 13:[address] 10,500 Unit FEEDTUBE PRN PRN For Clogged Feeding Tube Bacitracin 1 applic 04/17/19 08:00 Antibiotic Oint TP Q4H PRN upper lip sore/open Dextrose 50 gm 04/17/19 08:00 D50w (25gm) Vial IV Q1H PRN Hypoglycemia Gabapentin 300 mg 05/17/19 14:40 05/21/19 21:10 Gabapentin PO 300 mg Q8HR PAOLO Administration Hydrophilic Ointment 1 applic 03/16/19 15:50 04/19/19 18:24 Vaseline Lip Therapy TP 1 applic Q2HR PRN Administration Dry Lips Sodium Chloride 500 mls @ 50 mls/hr 05/10/19 08:00 05/11/19 06:55 Nacl 0.9% 500 Ml IV 50 mls/hr DIRECT PAOLO Administration Melatonin 5 mg 04/26/19 21:00 05/20/19 22:10 Melatonin PO 5 mg QHS PRN Administration Sleep Metoprolol Succinate 50 mg 05/10/19 10:00 05/21/19 11:17 Metoprolol Xl PO 50 mg QDAY PAOLO Administration Multi-Ingred Cream/Lotion/Oil/Oint 1 applic 03/16/19 15:50 03/19/19 20:10 Artificial Tears Ophth Oint OU 1 applic Q4HR PRN Administration Dry Eye(s) Pantoprazole Sodium 40 mg 05/07/19 22:00 05/21/19 21:10 Protonix PO 40 mg BID PAOLO Administration Potassium Phos/Sodium Phos 1 each 05/21/19 10:00 05/21/19 21:10 Phos-Nak PO 1 each Q12HR PAOLO Administration Simple Syrup 15 ml 04/20/19 13:17 Simple Syrup FEEDTUBE PRN PRN Hypoglycemia Simple Syrup 30 ml 04/20/19 13:29 05/01/19 17:57 Simple Syrup FEEDTUBE 30 ml PRN PRN Administration Hypoglycemia Sodium Bicarbonate 325 mg 04/20/19 13:17 04/27/19 11:03 Sodium Bicarbonate FEEDTUBE 325 mg PRN PRN Administration For Clogged Feeding Tube
[2019-05-22] MEDS: GABAPENTIN 300 MG CAP PO SCH ×3 (05:55→21:14)
[2019-05-22] MEDS: HYDROcodone/ACETAMINOPHEN 5-325 MG TAB PO PRN ×3 (05:56→19:42)
[2019-05-22] MEDS: METOPROLOL SUCCINATE XL 50 MG TAB PO SCH (11:02)
[2019-05-22] MEDS: PANTOPRAZOLE 40 MG TAB PO SCH ×2 (11:02→21:15)
[2019-05-22] MEDS: PHOS-NAK POWDER PACKET PO SCH ×2 (11:02→21:14)
--- NOTE | 2019-05-22 14:14 | Progress Note ---
Assessment and Plan Patient awake and oriented. patient counselled on using O2 as needed for shortness of breath.. O2 saturation is 97% on room air. Patient complained coughed up slight sputum with traces of blood. Obtaining chest xray. No acute respiratory distress. Patient afebrile and has no leukocytosis. Patients heart rate and blood pressure running good. Patients calcium to day 8.8, in the normal range. Patient has debridement of wound on left hand. Patient has venous doppler studies of legs, reported DVT.Patient has IVC filter placement . Patient is undergoing rehab. - Patient Problems (1) Acute respiratory failure Current Visit: Yes Status: Resolved Qualifiers: Respiratory failure complication: hypoxia Qualified Code(s): J96.01 - Acute respiratory failure with hypoxia Plan to address problem: O2 2L as needed for shortness of breath or desaturation. Albuterol/atrovent aerosol treatments q 6 hours. Continue Prevacid. Patient has IVC filter placement for DVT.. (2) Altered mental status Current Visit: Yes Status: Acute Qualifiers: Altered mental status type: unspecified Qualified Code(s): R41.82 - Altered mental status, unspecified Plan to address problem: Management as per primary care and neurology. (3) Atrial fibrillation with RVR Current Visit: Yes Status: Acute Plan to address problem: Management as per cardiology. (4) Cardiopulmonary arrest Current Visit: Yes Status: Acute Plan to address problem: Patient resuscitated. Presently resting on room air. O2 saturation 97%.. (5) Acute renal failure Current Visit: Yes Status: Acute Qualifiers: Acute renal failure type: with acute tubular necrosis Qualified Code(s): N17.0 - Acute kidney failure with tubular necrosis Plan to address problem: Management as per nephrology. (6) Aspiration pneumonia Current Visit: Yes Status: Acute Qualifiers: Aspiration pneumonia type: unspecified Plan to address problem: Patient treated with Azactam and zyvox. (7) GI bleed Current Visit: Yes Status: Acute Plan to address problem: Management as per gastroenterology. (8) DVT (deep venous thrombosis) Current Visit: Yes Status: Acute Plan to address problem: Venous doppler studies of legs reported DVT. Patient has IVC filter placement for DVT.. Subjective Date of service: 05/22/19 Principal diagnosis: DVT Interval history: Patient awake and oriented. patient counselled on using O2 as needed for shortness of breath.. O2 saturation is 97% on room air. Patient complained coughed up slight sputum with traces of blood. Obtaining chest xray. No acute respiratory distress. Patient afebrile and has no leukocytosis. Patients heart rate and blood pressure running good. Patients calcium to day 8.8, in the normal range. Patient has debridement of wound on left hand. Patient has venous doppler studies of legs, reported DVT.Patient has IVC filter placement . Patient undergoing rehab. Objective Vital Signs - 12hr 05/22/19 05/22/19 05/22/19 05:21 11:02 12:22 Temperature 97.8 F 98.0 F Pulse Rate 76 76 98 H Respiratory 20 16 Rate Blood Pressure 118/84 120/68 103/70 O2 Sat by Pulse 98 97 Oximetry Constitutional: alert Eyes: non-icteric ENT: oropharynx moist, other Neck: supple, no lymphadenopathy, no JVD, other (large neck circumference) Effort: normal Ascultation: Bilateral: diminished breath sounds, rales, rhonchi (scant) Percussion: Bilateral: not dull Cardiovascular: regular rate and rhythm, other ( S1,S2) Gastrointestinal: normoactive bowel sounds, soft, non-tender, non-distended, o ther (obese) Integumentary: normal Extremities: no cyanosis, pink and warm, pulses normal, no ischemia or petechiae Neurologic: normal mental status, non-focal exam (grossly), pupils equal and round, CN II-XII normal, other (very weak, bilateral foot drop) Psychiatric: mood appropriate, affect normal CBC and BMP: 05/20/19 06:34 05/19/19 06:47 ABG, PT/INR, D-dimer: ABG POC ABG pH 7.401 (7.35-7.45) 04/07/19 12:57 ABG pH 7.388 pH Units (7.350-7.450) 04/06/19 05:20 POC ABG pCO2 41.5 (35-45) 04/07/19 12:57 ABG pCO2 38.5 mm Hg 04/06/19 05:20 POC ABG pO2 107 (80-105) H 04/07/19 12:57 ABG pO2 104.0 mm Hg (80.0-90.0) H 04/06/19 05:20 POC ABG HCO3 25.7 (22-26 mml/L) 04/07/19 12:57 POC ABG Total CO2 27 (23-27mmol/L) 04/07/19 12:57 POC ABG O2 Sat 98 04/07/19 12:57 ABG O2 Saturation 97.8 % (95.0-99.0) 04/06/19 05:20 PT/INR, D-dimer PT 14.8 Sec. (12.2-14.9) 05/10/19 06:42 INR 1.17 (0.87-1.13) H 05/10/19 06:42 D-Dimer 4845.98 ng/mlDDU (0-234) H 03/28/19 12:00 Abnormal lab findings: Abnormal Labs 03/16/19 03/16/19 03/16/19 15:32 16:03 16:05 WBC 27.0 H RBC 5.55 H Hgb 15.7 H Hct 47.1 H MCV MCH MCHC RDW Plt Count 75 L Lymph % (Auto) [place] % (Auto) Eos % (Auto) Lymph # [place] # Eos # Seg Neutrophils % Seg Neuts % (Manual) 85.0 H Lymphocytes % (Manual) 2.0 L Monocytes % (Manual) Eosinophils % (Manual) Nucleated RBC % Seg Neutrophils # Seg Neutrophils # Man 23.0 H Lymphocytes # (Manual) 0.5 L Monocytes # (Manual) Eosinophils # (Manual) PT INR D-Dimer Heparin Anti-Xa Level POC ABG pH ABG pH POC ABG pCO2 POC ABG pO2 ABG pO2 ABG HCO3 ABG O2 Saturation ABG Base Excess ABG Hemoglobin Oxyhemoglobin Sodium 127 L Potassium Chloride 87.8 L Carbon Dioxide 17 L BUN 49 H Creatinine 5.8 H Glucose 150 H POC Glucose 118 H Lactic Acid Calcium 6.6 L Ionized Calcium Phosphorus Magnesium 1.10 L Iron TIBC Ferritin Total Bilirubin Direct Bilirubin AST ALT Alkaline Phosphatase Total Creatine Kinase 90915 H CK-MB (CK-2) Troponin T C-Reactive Protein Serum Total Protein Total Protein Albumin Ugvma-0-Byyajgvga Feudb-0-Nmrmmxmeg PEP Interpretation Triglycerides LDL Cholesterol Direct HDL Cholesterol Free T4 PTH Intact Urine WBC (Auto) Urine Creatinine Salicylates Acetaminophen Crossmatch 03/16/19 03/16/19 03/16/19 16:59 17:05 17:05 WBC RBC Hgb Hct MCV MCH MCHC RDW Plt Count Lymph % (Auto) [place] % (Auto) Eos % (Auto) Lymph # [place] # Eos # Seg Neutrophils % Seg Neuts % (Manual) Lymphocytes % (Manual) Monocytes % (Manual) Eosinophils % (Manual) Nucleated RBC % Seg Neutrophils # Seg Neutrophils # Man Lymphocytes # (Manual) Monocytes # (Manual) Eosinophils # (Manual) PT INR D-Dimer Heparin Anti-Xa Level POC ABG pH 7.297 L ABG pH POC ABG pCO2 33.0 L POC ABG pO2 ABG pO2 ABG HCO3 ABG O2 Saturation ABG Base Excess ABG Hemoglobin Oxyhemoglobin Sodium Potassium Chloride Carbon Dioxide BUN Creatinine Glucose POC Glucose Lactic Acid Calcium Ionized Calcium Phosphorus Magnesium Iron TIBC Ferritin Total Bilirubin Direct Bilirubin AST ALT Alkaline Phosphatase Total Creatine Kinase 56667 H CK-MB (CK-2) 83.1 H Troponin T C-Reactive Protein Serum Total Protein Total Protein Albumin Umyfm-4-Argomcimo Guzub-7-Mgeuqyuzh PEP Interpretation Triglycerides LDL Cholesterol Direct HDL Cholesterol Free T4 0.72 L PTH Intact Urine WBC (Auto) Urine Creatinine Salicylates Acetaminophen Crossmatch 03/16/19 03/16/19 03/16/19 17:05 17:05 17:05 WBC RBC Hgb Hct MCV MCH MCHC RDW Plt Count Lymph % (Auto) [place] % (Auto) Eos % (Auto) Lymph # [place] # Eos # Seg Neutrophils % Seg Neuts % (Manual) Lymphocytes % (Manual) Monocytes % (Manual) Eosinophils % (Manual) Nucleated RBC % Seg Neutrophils # Seg Neutrophils # Man Lymphocytes # (Manual) Monocytes # (Manual) Eosinophils # (Manual) PT INR D-Dimer Heparin Anti-Xa Level POC ABG pH ABG pH POC ABG pCO2 POC ABG pO2 ABG pO2 ABG HCO3 ABG O2 Saturation ABG Base Excess ABG Hemoglobin Oxyhemoglobin Sodium Potassium Chloride Carbon Dioxide BUN Creatinine Glucose POC Glucose Lactic Acid 5.10 H* Calcium Ionized Calcium Phosphorus Magnesium Iron TIBC Ferritin Total Bilirubin Direct Bilirubin AST ALT Alkaline Phosphatase Total Creatine Kinase CK-MB (CK-2) Troponin T C-Reactive Protein Serum Total Protein Total Protein Albumin Ayqlx-8-Keskepxam Zurwl-0-Igpgtevlg PEP Interpretation Triglycerides LDL Cholesterol Direct HDL Cholesterol Free T4 PTH Intact Urine WBC (Auto) Urine Creatinine Salicylates < 0.3 L Acetaminophen < 5.0 L Crossmatch 03/16/19 03/16/19 03/16/19 17:05 17:05 20:35 WBC RBC Hgb Hct MCV MCH MCHC RDW Plt Count Lymph % (Auto) [place] % (Auto) Eos % (Auto) Lymph # [place] # Eos # Seg Neutrophils % Seg Neuts % (Manual) Lymphocytes % (Manual) Monocytes % (Manual) Eosinophils % (Manual) Nucleated RBC % Seg Neutrophils # Seg Neutrophils # Man Lymphocytes # (Manual) Monocytes # (Manual) Eosinophils # (Manual) PT 15.9 H INR 1.30 H D-Dimer Heparin Anti-Xa Level POC ABG pH ABG pH POC ABG pCO2 POC ABG pO2 ABG pO2 ABG HCO3 ABG O2 Saturation ABG Base Excess ABG Hemoglobin Oxyhemoglobin Sodium Potassium Chloride Carbon Dioxide BUN Creatinine Glucose POC Glucose Lactic Acid 3.30 H* Calcium Ionized Calcium Phosphorus Magnesium Iron TIBC Ferritin Total Bilirubin 6.20 H Direct Bilirubin 5.9 H AST 800 H ALT 120 H Alkaline Phosphatase Total Creatine Kinase CK-MB (CK-2) Troponin T C-Reactive Protein Serum Total Protein Total Protein 4.4 L Albumin 2.4 L Qysxe-6-Gxrpoyohv Igxpf-0-Tdagisubc PEP Interpretation Triglycerides LDL Cholesterol Direct HDL Cholesterol Free T4 PTH Intact Urine WBC (Auto) Urine Creatinine Salicylates Acetaminophen Crossmatch 03/16/19 03/16/19 03/16/19 21:45 22:32 Unknown WBC RBC Hgb Hct MCV MCH MCHC RDW Plt Count Lymph % (Auto) [place] % (Auto) Eos % (Auto) Lymph # [place] # Eos # Seg Neutrophils % Seg Neuts % (Manual) Lymphocytes % (Manual) Monocytes % (Manual) Eosinophils % (Manual) Nucleated RBC % Seg Neutrophils # Seg Neutrophils # Man Lymphocytes # (Manual) Monocytes # (Manual) Eosinophils # (Manual) PT INR D-Dimer Heparin Anti-Xa Level POC ABG pH ABG pH POC ABG pCO2 POC ABG pO2 ABG pO2 ABG HCO3 ABG O2 Saturation ABG Base Excess ABG Hemoglobin Oxyhemoglobin Sodium Potassium Chloride Carbon Dioxide BUN Creatinine Glucose POC Glucose Lactic Acid 3.30 H* 3.00 H* Calcium Ionized Calcium Phosphorus Magnesium Iron TIBC Ferritin Total Bilirubin Direct Bilirubin AST ALT Alkaline Phosphatase Total Creatine Kinase CK-MB (CK-2) Troponin T 0.047 H D C-Reactive Protein Serum Total Protein Total Protein Albumin Isqds-3-Eoftbfbsg Copgz-5-Bwarqovwx PEP Interpretation Triglycerides 395 H LDL Cholesterol Direct 10 L HDL Cholesterol 7 L Free T4 PTH Intact Urine WBC (Auto) Urine Creatinine Salicylates Acetaminophen Crossmatch 03/17/19 03/17/19 03/17/19 03:45 03:45 03:45 WBC RBC Hgb Hct MCV MCH MCHC RDW Plt Count Lymph % (Auto) [place] % (Auto) Eos % (Auto) Lymph # [place] # Eos # Seg Neutrophils % Seg Neuts % (Manual) Lymphocytes % (Manual) Monocytes % (Manual) Eosinophils % (Manual) Nucleated RBC % Seg Neutrophils # Seg Neutrophils # Man Lymphocytes # (Manual) Monocytes # (Manual) Eosinophils # (Manual) PT INR D-Dimer Heparin Anti-Xa Level POC ABG pH ABG pH POC ABG pCO2 POC ABG pO2 ABG pO2 ABG HCO3 ABG O2 Saturation ABG Base Excess ABG Hemoglobin Oxyhemoglobin Sodium 131 L Potassium Chloride 88.9 L Carbon Dioxide BUN 53 H Creatinine 7.1 H Glucose POC Glucose Lactic Acid 4.10 H* Calcium 5.4 L* D Ionized Calcium Phosphorus 7.30 H Magnesium 1.60 L Iron TIBC Ferritin Total Bilirubin 5.90 H Direct Bilirubin AST 801 H ALT 109 H Alkaline Phosphatase Total Creatine Kinase 87944 H 42718 H CK-MB (CK-2) 41.5 H Troponin T 0.054 H C-Reactive Protein Serum Total Protein Total Protein 4.5 L Albumin 2.0 L Hyfxw-5-Mhsznvyan Cgzon-1-Biitjludy PEP Interpretation Triglycerides LDL Cholesterol Direct HDL Cholesterol Free T4 PTH Intact Urine WBC (Auto) Urine Creatinine Salicylates Acetaminophen Crossmatch 03/17/19 03/17/19 03/17/19 05:47 07:16 07:16 WBC RBC Hgb Hct MCV MCH MCHC RDW Plt Count Lymph % (Auto) [place] % (Auto) Eos % (Auto) Lymph # [place] # Eos # Seg Neutrophils % Seg Neuts % (Manual) Lymphocytes % (Manual) Monocytes % (Manual) Eosinophils % (Manual) Nucleated RBC % Seg Neutrophils # Seg Neutrophils # Man Lymphocytes # (Manual) Monocytes # (Manual) Eosinophils # (Manual) PT INR D-Dimer Heparin Anti-Xa Level POC ABG pH 7.193 L ABG pH POC ABG pCO2 45.2 H POC ABG pO2 65 L ABG pO2 ABG HCO3 ABG O2 Saturation ABG Base Excess ABG Hemoglobin Oxyhemoglobin Sodium Potassium Chloride Carbon Dioxide BUN Creatinine Glucose POC Glucose Lactic Acid 5.50 H* Calcium Ionized Calcium Phosphorus Magnesium Iron TIBC Ferritin Total Bilirubin Direct Bilirubin AST ALT Alkaline Phosphatase Total Creatine Kinase 17549 H CK-MB (CK-2) 54.3 H Troponin T 0.058 H C-Reactive Protein Serum Total Protein Total Protein Albumin Txznx-8-Ovwlaxzub Ixxnv-5-Fvqejxarj PEP Interpretation Triglycerides LDL Cholesterol Direct HDL Cholesterol Free T4 PTH Intact Urine WBC (Auto) Urine Creatinine Salicylates Acetaminophen Crossmatch 03/17/19 03/17/19 03/17/19 11:52 12:51 13:01 WBC RBC Hgb Hct MCV MCH MCHC RDW Plt Count Lymph % (Auto) [place] % (Auto) Eos % (Auto) Lymph # [place] # Eos # Seg Neutrophils % Seg Neuts % (Manual) Lymphocytes % (Manual) Monocytes % (Manual) Eosinophils % (Manual) Nucleated RBC % Seg Neutrophils # Seg Neutrophils # Man Lymphocytes # (Manual) Monocytes # (Manual) Eosinophils # (Manual) PT INR D-Dimer Heparin Anti-Xa Level POC ABG pH 7.154 L ABG pH POC ABG pCO2 34.3 L POC ABG pO2 73 L ABG pO2 ABG HCO3 ABG O2 Saturation ABG Base Excess ABG Hemoglobin Oxyhemoglobin Sodium Potassium Chloride Carbon Dioxide BUN Creatinine Glucose POC Glucose 60 L Lactic Acid 8.20 H* Calcium Ionized Calcium Phosphorus Magnesium Iron TIBC Ferritin Total Bilirubin Direct Bilirubin AST ALT Alkaline Phosphatase Total Creatine Kinase CK-MB (CK-2) Troponin T C-Reactive Protein Serum Total Protein Total Protein Albumin Hnklx-6-Jkodrpctl Olusr-4-Upuwamrbr PEP Interpretation Triglycerides LDL Cholesterol Direct HDL Cholesterol Free T4 PTH Intact Urine WBC (Auto) Urine Creatinine Salicylates Acetaminophen Crossmatch 03/17/19 03/17/19 03/17/19 14:37 14:37 14:37 WBC 29.3 H RBC Hgb Hct MCV MCH MCHC RDW 15.8 H Plt Count 45 L Lymph % (Auto) [place] % (Auto) Eos % (Auto) Lymph # [place] # Eos # Seg Neutrophils % Seg Neuts % (Manual) 81.0 H Lymphocytes % (Manual) 1.0 L Monocytes % (Manual) 15.0 H Eosinophils % (Manual) Nucleated RBC % Seg Neutrophils # Seg Neutrophils # Man 23.7 H Lymphocytes # (Manual) 0.3 L Monocytes # (Manual) 4.4 H Eosinophils # (Manual) PT INR D-Dimer Heparin Anti-Xa Level POC ABG pH ABG pH POC ABG pCO2 POC ABG pO2 ABG pO2 ABG HCO3 ABG O2 Saturation ABG Base Excess ABG Hemoglobin Oxyhemoglobin Sodium Potassium Chloride Carbon Dioxide BUN Creatinine Glucose POC Glucose Lactic Acid 4.90 H* Calcium Ionized Calcium Phosphorus Magnesium Iron TIBC Ferritin Total Bilirubin Direct Bilirubin AST ALT Alkaline Phosphatase Total Creatine Kinase CK-MB (CK-2) Troponin T C-Reactive Protein 24.90 H Serum Total Protein Total Protein Albumin Oqtfi-1-Jvklvesiv Nmqzi-9-Vthfhmsyn PEP Interpretation Triglycerides LDL Cholesterol Direct HDL Cholesterol Free T4 PTH Intact Urine WBC (Auto) Urine Creatinine Salicylates Acetaminophen Crossmatch 03/17/19 03/17/19 03/17/19 16:05 16:05 17:02 WBC RBC Hgb Hct MCV MCH MCHC RDW Plt Count Lymph % (Auto) [place] % (Auto) Eos % (Auto) Lymph # [place] # Eos # Seg Neutrophils % Seg Neuts % (Manual) Lymphocytes % (Manual) Monocytes % (Manual) Eosinophils % (Manual) Nucleated RBC % Seg Neutrophils # Seg Neutrophils # Man Lymphocytes # (Manual) Monocytes # (Manual) Eosinophils # (Manual) PT INR D-Dimer Heparin Anti-Xa Level POC ABG pH 7.183 L ABG pH POC ABG pCO2 POC ABG pO2 65 L ABG pO2 ABG HCO3 ABG O2 Saturation ABG Base Excess ABG Hemoglobin Oxyhemoglobin Sodium Potassium Chloride Carbon Dioxide BUN Creatinine Glucose POC Glucose Lactic Acid Calcium Ionized Calcium Phosphorus Magnesium Iron TIBC Ferritin Total Bilirubin Direct Bilirubin AST ALT Alkaline Phosphatase Total Creatine Kinase CK-MB (CK-2) Troponin T C-Reactive Protein Serum Total Protein Total Protein Albumin Cliny-6-Sbaxpeizd Nfmuf-3-Tixqurhhr PEP Interpretation Triglycerides LDL Cholesterol Direct HDL Cholesterol Free T4 PTH Intact Urine WBC (Auto) 30.0 H Urine Creatinine 106.6 H Salicylates Acetaminophen Crossmatch 03/18/19 03/18/19 03/18/19 05:12 05:16 05:53 WBC RBC Hgb Hct MCV MCH MCHC RDW Plt Count Lymph % (Auto) [place] % (Auto) Eos % (Auto) Lymph # [place] # Eos # Seg Neutrophils % Seg Neuts % (Manual) Lymphocytes % (Manual) Monocytes % (Manual) Eosinophils % (Manual) Nucleated RBC % Seg Neutrophils # Seg Neutrophils # Man Lymphocytes # (Manual) Monocytes # (Manual) Eosinophils # (Manual) PT INR D-Dimer Heparin Anti-Xa Level POC ABG pH 7.257 L ABG pH POC ABG pCO2 31.6 L POC ABG pO2 69 L ABG pO2 ABG HCO3 ABG O2 Saturation ABG Base Excess ABG Hemoglobin Oxyhemoglobin Sodium Potassium Chloride Carbon Dioxide BUN Creatinine Glucose POC Glucose 141 H Lactic Acid 5.00 H* Calcium Ionized Calcium Phosphorus Magnesium Iron TIBC Ferritin Total Bilirubin Direct Bilirubin AST ALT Alkaline Phosphatase Total Creatine Kinase CK-MB (CK-2) Troponin T C-Reactive Protein Serum Total Protein Total Protein Albumin Octrj-2-Nwphvakpa Crvqf-8-Bgpxurdjo PEP Interpretation Triglycerides LDL Cholesterol Direct HDL Cholesterol Free T4 PTH Intact Urine WBC (Auto) Urine Creatinine Salicylates Acetaminophen Crossmatch 03/18/19 03/18/19 03/18/19 06:57 08:40 08:40 WBC 31.7 H RBC Hgb Hct MCV MCH MCHC RDW 15.5 H Plt Count 35 L Lymph % (Auto) [place] % (Auto) Eos % (Auto) Lymph # [place] # Eos # Seg Neutrophils % Seg Neuts % (Manual) Lymphocytes % (Manual) Monocytes % (Manual) Eosinophils % (Manual) Nucleated RBC % Seg Neutrophils # Seg Neutrophils # Man Lymphocytes # (Manual) Monocytes # (Manual) Eosinophils # (Manual) PT INR D-Dimer Heparin Anti-Xa Level POC ABG pH ABG pH POC ABG pCO2 POC ABG pO2 ABG pO2 ABG HCO3 ABG O2 Saturation ABG Base Excess ABG Hemoglobin Oxyhemoglobin Sodium 132 L Potassium 5.5 H D Chloride 88.5 L Carbon Dioxide 18 L BUN 71 H Creatinine 8.1 H Glucose 205 H POC Glucose Lactic Acid 5.00 H* Calcium 4.1 L* D Ionized Calcium Phosphorus Magnesium 2.40 H Iron TIBC Ferritin Total Bilirubin 7.50 H Direct Bilirubin AST 1088 H ALT 159 H Alkaline Phosphatase 190 H Total Creatine Kinase 544512 H CK-MB (CK-2) Troponin T C-Reactive Protein Serum Total Protein Total Protein 4.7 L Albumin 1.8 L Irhyy-4-Bbzqyekje Xaxeh-3-Mltaplzaq PEP Interpretation Triglycerides LDL Cholesterol Direct HDL Cholesterol Free T4 PTH Intact Urine WBC (Auto) Urine Creatinine Salicylates Acetaminophen Crossmatch 03/18/19 03/18/19 03/18/19 12:33 12:50 13:19 WBC RBC Hgb Hct MCV MCH MCHC RDW Plt Count Lymph % (Auto) [place] % (Auto) Eos % (Auto) Lymph # [place] # Eos # Seg Neutrophils % Seg Neuts % (Manual) Lymphocytes % (Manual) Monocytes % (Manual) Eosinophils % (Manual) Nucleated RBC % Seg Neutrophils # Seg Neutrophils # Man Lymphocytes # (Manual) Monocytes # (Manual) Eosinophils # (Manual) PT INR D-Dimer Heparin Anti-Xa Level POC ABG pH 7.282 L ABG pH POC ABG pCO2 POC ABG pO2 67 L ABG pO2 ABG HCO3 ABG O2 Saturation ABG Base Excess ABG Hemoglobin Oxyhemoglobin Sodium Potassium Chloride Carbon Dioxide BUN Creatinine Glucose POC Glucose 129 H Lactic Acid 3.30 H* Calcium Ionized Calcium Phosphorus Magnesium Iron TIBC Ferritin Total Bilirubin Direct Bilirubin AST ALT Alkaline Phosphatase Total Creatine Kinase CK-MB (CK-2) Troponin T C-Reactive Protein Serum Total Protein Total Protein Albumin Hazbv-2-Slvlyjbom Iknxh-9-Nhufajxfx PEP Interpretation Triglycerides LDL Cholesterol Direct HDL Cholesterol Free T4 PTH Intact Urine WBC (Auto) Urine Creatinine Salicylates Acetaminophen Crossmatch 03/18/19 03/18/19 03/18/19 13:19 16:50 18:11 WBC RBC Hgb Hct MCV MCH MCHC RDW Plt Count Lymph % (Auto) [place] % (Auto) Eos % (Auto) Lymph # [place] # Eos # Seg Neutrophils % Seg Neuts % (Manual) Lymphocytes % (Manual) Monocytes % (Manual) Eosinophils % (Manual) Nucleated RBC % Seg Neutrophils # Seg Neutrophils # Man Lymphocytes # (Manual) Monocytes # (Manual) Eosinophils # (Manual) PT INR D-Dimer Heparin Anti-Xa Level POC ABG pH ABG pH POC ABG pCO2 POC ABG pO2 59 L ABG pO2 ABG HCO3 ABG O2 Saturation ABG Base Excess ABG Hemoglobin Oxyhemoglobin Sodium Potassium Chloride Carbon Dioxide BUN Creatinine Glucose POC Glucose 151 H Lactic Acid Calcium 4.2 L* Ionized Calcium Phosphorus Magnesium Iron TIBC Ferritin Total Bilirubin Direct Bilirubin AST ALT Alkaline Phosphatase Total Creatine Kinase 518017 H CK-MB (CK-2) Troponin T C-Reactive Protein Serum Total Protein Total Protein Albumin Pbvjc-4-Skphdbgxb Nnxsg-7-Shtykmtcq PEP Interpretation Triglycerides LDL Cholesterol Direct HDL Cholesterol Free T4 PTH Intact Urine WBC (Auto) Urine Creatinine Salicylates Acetaminophen Crossmatch 03/18/19 03/18/1919 18:20 23:39 01:42 WBC RBC Hgb Hct MCV MCH MCHC RDW Plt Count Lymph % (Auto) [place] % (Auto) Eos % (Auto) Lymph # [place] # Eos # Seg Neutrophils % Seg Neuts % (Manual) Lymphocytes % (Manual) Monocytes % (Manual) Eosinophils % (Manual) Nucleated RBC % Seg Neutrophils # Seg Neutrophils # Man Lymphocytes # (Manual) Monocytes # (Manual) Eosinophils # (Manual) PT INR D-Dimer Heparin Anti-Xa Level POC ABG pH 7.345 L ABG pH 7.285 L POC ABG pCO2 POC ABG pO2 59 L ABG pO2 44.0 L ABG HCO3 ABG O2 Saturation 70.9 L ABG Base Excess -5.7 L ABG Hemoglobin 11.9 L Oxyhemoglobin 69.6 L Sodium Potassium Chloride Carbon Dioxide BUN Creatinine Glucose POC Glucose 152 H Lactic Acid Calcium Ionized Calcium Phosphorus Magnesium Iron TIBC Ferritin Total Bilirubin Direct Bilirubin AST ALT Alkaline Phosphatase Total Creatine Kinase CK-MB (CK-2) Troponin T C-Reactive Protein Serum Total Protein Total Protein Albumin Yqvuf-7-Vvpzthxcz Gqazu-9-Kbqgxvoyw PEP Interpretation Triglycerides LDL Cholesterol Direct HDL Cholesterol Free T4 PTH Intact Urine WBC (Auto) Urine Creatinine Salicylates Acetaminophen Crossmatch 03/19/19 03/19/19 03/19/19 04:00 04:00 05:35 WBC 36.5 H RBC Hgb Hct MCV MCH MCHC RDW 15.8 H Plt Count 35 L Lymph % (Auto) [place] % (Auto) Eos % (Auto) Lymph # [place] # Eos # Seg Neutrophils % Seg Neuts % (Manual) Lymphocytes % (Manual) Monocytes % (Manual) Eosinophils % (Manual) Nucleated RBC % Seg Neutrophils # Seg Neutrophils # Man Lymphocytes # (Manual) Monocytes # (Manual) Eosinophils # (Manual) PT INR D-Dimer Heparin Anti-Xa Level POC ABG pH ABG pH 7.265 L POC ABG pCO2 POC ABG pO2 ABG pO2 35.4 L* ABG HCO3 ABG O2 Saturation 54.4 L ABG Base Excess -6.7 L ABG Hemoglobin 12.9 L Oxyhemoglobin 53.4 L Sodium 132 L Potassium 5.7 H Chloride 89.8 L Carbon Dioxide 19 L BUN 62 H Creatinine 6.4 H Glucose 151 H POC Glucose Lactic Acid Calcium 5.2 L* D Ionized Calcium Phosphorus Magnesium Iron TIBC Ferritin Total Bilirubin 7.80 H Direct Bilirubin AST 682 H ALT 130 H Alkaline Phosphatase 167 H Total Creatine Kinase CK-MB (CK-2) Troponin T C-Reactive Protein Serum Total Protein Total Protein 4.8 L Albumin 2.3 L Srjvk-5-Dtdofjukt Qdjdq-8-Estnlckpp PEP Interpretation Triglycerides LDL Cholesterol Direct HDL Cholesterol Free T4 PTH Intact Urine WBC (Auto) Urine Creatinine Salicylates Acetaminophen Crossmatch 03/19/19 03/19/19 03/19/19 05:49 09:16 09:50 WBC RBC Hgb Hct MCV MCH MCHC RDW Plt Count Lymph % (Auto) [place] % (Auto) Eos % (Auto) Lymph # [place] # Eos # Seg Neutrophils % Seg Neuts % (Manual) Lymphocytes % (Manual) Monocytes % (Manual) Eosinophils % (Manual) Nucleated RBC % Seg Neutrophils # Seg Neutrophils # Man Lymphocytes # (Manual) Monocytes # (Manual) Eosinophils # (Manual) PT INR D-Dimer Heparin Anti-Xa Level POC ABG pH 7.222 L ABG pH POC ABG pCO2 56.6 H POC ABG pO2 ABG pO2 ABG HCO3 ABG O2 Saturation ABG Base Excess ABG Hemoglobin Oxyhemoglobin Sodium Potassium Chloride Carbon Dioxide BUN Creatinine Glucose POC Glucose 154 H Lactic Acid 2.70 H* Calcium Ionized Calcium Phosphorus Magnesium Iron TIBC Ferritin Total Bilirubin Direct Bilirubin AST ALT Alkaline Phosphatase Total Creatine Kinase CK-MB (CK-2) Troponin T C-Reactive Protein Serum Total Protein Total Protein Albumin Gmocc-0-[place]oy[place]bl Mdrgb-1-Crihxvnyl PEP Interpretation Triglycerides LDL Cholesterol Direct HDL Cholesterol Free T4 PTH Intact Urine WBC (Auto) Urine Creatinine Salicylates Acetaminophen Crossmatch 03/19/19 03/19/19 03/19/19 09:50 11:28 17:58 WBC RBC Hgb Hct MCV MCH MCHC RDW Plt Count Lymph % (Auto) [place] % (Auto) Eos % (Auto) Lymph # [place] # Eos # Seg Neutrophils % Seg Neuts % (Manual) Lymphocytes % (Manual) Monocytes % (Manual) Eosinophils % (Manual) Nucleated RBC % Seg Neutrophils # Seg Neutrophils # Man Lymphocytes # (Manual) Monocytes # (Manual) Eosinophils # (Manual) PT INR D-Dimer Heparin Anti-Xa Level POC ABG pH 7.250 L ABG pH POC ABG pCO2 52.6 H POC ABG pO2 ABG pO2 ABG HCO3 ABG O2 Saturation ABG Base Excess ABG Hemoglobin Oxyhemoglobin Sodium Potassium Chloride Carbon Dioxide BUN Creatinine Glucose POC Glucose 160 H Lactic Acid Calcium Ionized Calcium Phosphorus Magnesium Iron TIBC Ferritin Total Bilirubin Direct Bilirubin AST ALT Alkaline Phosphatase Total Creatine Kinase 12802 H CK-MB (CK-2) Troponin T C-Reactive Protein Serum Total Protein Total Protein Albumin Nrvyz-9-Jneqqpzfb Snsrt-3-Alqpdajqc PEP Interpretation Triglycerides LDL Cholesterol Direct HDL Cholesterol Free T4 PTH Intact Urine WBC (Auto) Urine Creatinine Salicylates Acetaminophen Crossmatch 03/19/19 03/19/19 03/20/19 19:48 21:03 02:16 WBC RBC Hgb Hct MCV MCH MCHC RDW Plt Count Lymph % (Auto) [place] % (Auto) Eos % (Auto) Lymph # [place] # Eos # Seg Neutrophils % Seg Neuts % (Manual) Lymphocytes % (Manual) Monocytes % (Manual) Eosinophils % (Manual) Nucleated RBC % Seg Neutrophils # Seg Neutrophils # Man Lymphocytes # (Manual) Monocytes # (Manual) Eosinophils # (Manual) PT INR D-Dimer Heparin Anti-Xa Level POC ABG pH 7.279 L ABG pH POC ABG pCO2 50.3 H POC ABG pO2 129 H ABG pO2 ABG HCO3 ABG O2 Saturation ABG Base Excess ABG Hemoglobin Oxyhemoglobin Sodium Potassium Chloride Carbon Dioxide BUN Creatinine Glucose POC Glucose 119 H 119 H Lactic Acid Calcium Ionized Calcium Phosphorus Magnesium Iron TIBC Ferritin Total Bilirubin Direct Bilirubin AST ALT Alkaline Phosphatase Total Creatine Kinase CK-MB (CK-2) Troponin T C-Reactive Protein Serum Total Protein Total Protein Albumin Ztaxq-1-Sznjjtwho Xaldi-3-Tkxmbmsnr PEP Interpretation Triglycerides LDL Cholesterol Direct HDL Cholesterol Free T4 PTH Intact Urine WBC (Auto) Urine Creatinine Salicylates Acetaminophen Crossmatch 03/20/19 03/20/19 03/20/19 04:23 05:05 09:30 WBC 36.3 H RBC Hgb Hct MCV MCH MCHC RDW 15.5 H Plt Count 29 L Lymph % (Auto) [place] % (Auto) Eos % (Auto) Lymph # [place] # Eos # Seg Neutrophils % Seg Neuts % (Manual) Lymphocytes % (Manual) Monocytes % (Manual) Eosinophils % (Manual) Nucleated RBC % Seg Neutrophils # Seg Neutrophils # Man Lymphocytes # (Manual) Monocytes # (Manual) Eosinophils # (Manual) PT INR D-Dimer Heparin Anti-Xa Level POC ABG pH ABG pH POC ABG pCO2 POC ABG pO2 280 H ABG pO2 ABG HCO3 ABG O2 Saturation ABG Base Excess ABG Hemoglobin Oxyhemoglobin Sodium Potassium Chloride Carbon Dioxide BUN Creatinine Glucose POC Glucose 115 H Lactic Acid Calcium Ionized Calcium Phosphorus Magnesium Iron TIBC Ferritin Total Bilirubin Direct Bilirubin AST ALT Alkaline Phosphatase Total Creatine Kinase CK-MB (CK-2) Troponin T C-Reactive Protein Serum Total Protein Total Protein Albumin Bnstv-4-Sorxwfjen Mvjpb-5-Rkxchjunf PEP Interpretation Triglycerides LDL Cholesterol Direct HDL Cholesterol Free T4 PTH Intact Urine WBC (Auto) Urine Creatinine Salicylates Acetaminophen Crossmatch 03/20/19 03/20/19 03/20/19 09:30 09:30 11:34 WBC RBC Hgb Hct MCV MCH MCHC RDW Plt Count Lymph % (Auto) [place] % (Auto) Eos % (Auto) Lymph # [place] # Eos # Seg Neutrophils % Seg Neuts % (Manual) Lymphocytes % (Manual) Monocytes % (Manual) Eosinophils % (Manual) Nucleated RBC % Seg Neutrophils # Seg Neutrophils # Man Lymphocytes # (Manual) Monocytes # (Manual) Eosinophils # (Manual) PT INR D-Dimer Heparin Anti-Xa Level POC ABG pH ABG pH POC ABG pCO2 POC ABG pO2 ABG pO2 ABG HCO3 ABG O2 Saturation ABG Base Excess ABG Hemoglobin Oxyhemoglobin Sodium 131 L Potassium Chloride 92.3 L Carbon Dioxide 20 L BUN 68 H Creatinine 6.1 H Glucose 164 H POC Glucose 141 H Lactic Acid Calcium 5.3 L* Ionized Calcium Phosphorus Magnesium Iron TIBC Ferritin Total Bilirubin 9.50 H Direct Bilirubin AST 381 H ALT 116 H Alkaline Phosphatase 255 H Total Creatine Kinase 77470 H CK-MB (CK-2) Troponin T C-Reactive Protein Serum Total Protein Total Protein 5.1 L Albumin 2.3 L Rfpwb-4-Aaygudrhi Mzkhz-8-Javaqwaup PEP Interpretation Triglycerides LDL Cholesterol Direct HDL Cholesterol Free T4 PTH Intact Urine WBC (Auto) Urine Creatinine Salicylates Acetaminophen Crossmatch 03/20/19 03/20/19 03/20/19 14:41 14:45 18:50 WBC RBC Hgb Hct MCV MCH MCHC RDW Plt Count Lymph % (Auto) [place] % (Auto) Eos % (Auto) Lymph # [place] # Eos # Seg Neutrophils % Seg Neuts % (Manual) Lymphocytes % (Manual) Monocytes % (Manual) Eosinophils % (Manual) Nucleated RBC % Seg Neutrophils # Seg Neutrophils # Man Lymphocytes # (Manual) Monocytes # (Manual) Eosinophils # (Manual) PT INR D-Dimer Heparin Anti-Xa Level POC ABG pH ABG pH POC ABG pCO2 POC ABG pO2 ABG pO2 ABG HCO3 ABG O2 Saturation ABG Base Excess ABG Hemoglobin Oxyhemoglobin Sodium Potassium Chloride Carbon Dioxide BUN Creatinine Glucose POC Glucose 117 H Lactic Acid 2.90 H* Calcium Ionized Calcium Phosphorus Magnesium Iron TIBC Ferritin Total Bilirubin Direct Bilirubin AST ALT Alkaline Phosphatase Total Creatine Kinase CK-MB (CK-2) Troponin T C-Reactive Protein 13.30 H Serum Total Protein Total Protein Albumin Hyfpl-1-Fgxluketp Dpvgm-2-Nyfyjztfv PEP Interpretation Triglycerides LDL Cholesterol Direct HDL Cholesterol Free T4 PTH Intact Urine WBC (Auto) Urine Creatinine Salicylates Acetaminophen Crossmatch 03/20/19 03/21/19 03/21/19 21:55 04:26 04:26 WBC 37.8 H RBC Hgb Hct MCV MCH MCHC RDW 15.4 H Plt Count 36 L Lymph % (Auto) [place] % (Auto) Eos % (Auto) Lymph # [place] # Eos # Seg Neutrophils % Seg Neuts % (Manual) 93.0 H Lymphocytes % (Manual) 3.0 L Monocytes % (Manual) Eosinophils % (Manual) Nucleated RBC % 1.0 H Seg Neutrophils # 34.6 H Seg Neutrophils # Man 35.2 H Lymphocytes # (Manual) 1.1 L Monocytes # (Manual) Eosinophils # (Manual) PT INR D-Dimer Heparin Anti-Xa Level POC ABG pH ABG pH POC ABG pCO2 POC ABG pO2 ABG pO2 ABG HCO3 ABG O2 Saturation ABG Base Excess ABG Hemoglobin Oxyhemoglobin Sodium 131 L Potassium Chloride 90.7 L Carbon Dioxide 21 L BUN 69 H Creatinine 5.7 H Glucose 170 H POC Glucose 128 H Lactic Acid Calcium 6.1 L D Ionized Calcium Phosphorus Magnesium Iron TIBC Ferritin Total Bilirubin 9.50 H Direct Bilirubin AST 308 H ALT 124 H Alkaline Phosphatase 327 H Total Creatine Kinase 92660 H CK-MB (CK-2) Troponin T C-Reactive Protein Serum Total Protein Total Protein 5.7 L Albumin 2.6 L Qdkvr-7-Wponnsril Khudv-8-Tecalbzla PEP Interpretation Triglycerides LDL Cholesterol Direct HDL Cholesterol Free T4 PTH Intact Urine WBC (Auto) Urine Creatinine Salicylates Acetaminophen Crossmatch 03/21/19 03/21/19 03/21/19 05:17 05:39 08:29 WBC RBC Hgb Hct MCV MCH MCHC RDW Plt Count Lymph % (Auto) [place] % (Auto) Eos % (Auto) Lymph # [place] # Eos # Seg Neutrophils % Seg Neuts % (Manual) Lymphocytes % (Manual) Monocytes % (Manual) Eosinophils % (Manual) Nucleated RBC % Seg Neutrophils # Seg Neutrophils # Man Lymphocytes # (Manual) Monocytes # (Manual) Eosinophils # (Manual) PT INR D-Dimer Heparin Anti-Xa Level POC ABG pH ABG pH POC ABG pCO2 POC ABG pO2 209 H ABG pO2 ABG HCO3 ABG O2 Saturation ABG Base Excess ABG Hemoglobin Oxyhemoglobin Sodium Potassium Chloride Carbon Dioxide BUN Creatinine Glucose POC Glucose 145 H Lactic Acid Calcium Ionized Calcium Phosphorus Magnesium Iron TIBC Ferritin Total Bilirubin Direct Bilirubin AST ALT Alkaline Phosphatase Total Creatine Kinase 94249 H CK-MB (CK-2) Troponin T C-Reactive Protein Serum Total Protein Total Protein Albumin Abkza-0-Dmxivtqbr Anxmh-0-Spbkkjdpf PEP Interpretation Triglycerides LDL Cholesterol Direct HDL Cholesterol Free T4 PTH Intact Urine WBC (Auto) Urine Creatinine Salicylates Acetaminophen Crossmatch 03/21/19 03/21/19 03/21/19 08:29 11:43 12:00 WBC RBC Hgb Hct MCV MCH MCHC RDW Plt Count Lymph % (Auto) [place] % (Auto) Eos % (Auto) Lymph # [place] # Eos # Seg Neutrophils % Seg Neuts % (Manual) Lymphocytes % (Manual) Monocytes % (Manual) Eosinophils % (Manual) Nucleated RBC % Seg Neutrophils # Seg Neutrophils # Man Lymphocytes # (Manual) Monocytes # (Manual) Eosinophils # (Manual) PT INR D-Dimer Heparin Anti-Xa Level POC ABG pH ABG pH POC ABG pCO2 POC ABG pO2 ABG pO2 ABG HCO3 ABG O2 Saturation ABG Base Excess ABG Hemoglobin Oxyhemoglobin Sodium Potassium Chloride Carbon Dioxide BUN Creatinine Glucose POC Glucose 123 H Lactic Acid 2.60 H* 2.20 H* Calcium Ionized Calcium Phosphorus Magnesium Iron TIBC Ferritin Total Bilirubin Direct Bilirubin AST ALT Alkaline Phosphatase Total Creatine Kinase CK-MB (CK-2) Troponin T C-Reactive Protein Serum Total Protein Total Protein Albumin Tcyiu-0-Jjaxvrqxn Lqadj-2-Ifpwhbobs PEP Interpretation Triglycerides LDL Cholesterol Direct HDL Cholesterol Free T4 PTH Intact Urine WBC (Auto) Urine Creatinine Salicylates Acetaminophen Crossmatch 03/21/19 03/21/19 03/21/19 14:11 18:28 19:32 WBC RBC Hgb Hct MCV MCH MCHC RDW Plt Count Lymph % (Auto) [place] % (Auto) Eos % (Auto) Lymph # [place] # Eos # Seg Neutrophils % Seg Neuts % (Manual) Lymphocytes % (Manual) Monocytes % (Manual) Eosinophils % (Manual) Nucleated RBC % Seg Neutrophils # Seg Neutrophils # Man Lymphocytes # (Manual) Monocytes # (Manual) Eosinophils # (Manual) PT INR D-Dimer Heparin Anti-Xa Level POC ABG pH 7.293 L ABG pH POC ABG pCO2 POC ABG pO2 ABG pO2 ABG HCO3 ABG O2 Saturation ABG Base Excess ABG Hemoglobin Oxyhemoglobin Sodium Potassium Chloride Carbon Dioxide BUN Creatinine Glucose POC Glucose 153 H Lactic Acid 2.10 H* Calcium Ionized Calcium Phosphorus Magnesium Iron TIBC Ferritin Total Bilirubin Direct Bilirubin AST ALT Alkaline Phosphatase Total Creatine Kinase CK-MB (CK-2) Troponin T C-Reactive Protein Serum Total Protein Total Protein Albumin Lohde-0-Eulnujhod Vbllh-8-Rinpsaeiw PEP Interpretation Triglycerides LDL Cholesterol Direct HDL Cholesterol Free T4 PTH Intact Urine WBC (Auto) Urine Creatinine Salicylates Acetaminophen Crossmatch 03/21/19 03/22/19 03/22/19 23:38 05:08 05:51 WBC RBC Hgb Hct MCV MCH MCHC RDW Plt Count Lymph % (Auto) [place] % (Auto) Eos % (Auto) Lymph # [place] # Eos # Seg Neutrophils % Seg Neuts % (Manual) Lymphocytes % (Manual) Monocytes % (Manual) Eosinophils % (Manual) Nucleated RBC % Seg Neutrophils # Seg Neutrophils # Man Lymphocytes # (Manual) Monocytes # (Manual) Eosinophils # (Manual) PT INR D-Dimer Heparin Anti-Xa Level POC ABG pH 7.283 L ABG pH POC ABG pCO2 POC ABG pO2 53 L ABG pO2 ABG HCO3 ABG O2 Saturation ABG Base Excess ABG Hemoglobin Oxyhemoglobin Sodium Potassium Chloride Carbon Dioxide BUN Creatinine Glucose POC Glucose 149 H 131 H Lactic Acid Calcium Ionized Calcium Phosphorus Magnesium Iron TIBC Ferritin Total Bilirubin Direct Bilirubin AST ALT Alkaline Phosphatase Total Creatine Kinase CK-MB (CK-2) Troponin T C-Reactive Protein Serum Total Protein Total Protein Albumin Bxjca-2-Qahhjgvmw Uqhpn-4-Ocanczffq PEP Interpretation Triglycerides LDL Cholesterol Direct HDL Cholesterol Free T4 PTH Intact Urine WBC (Auto) Urine Creatinine Salicylates Acetaminophen Crossmatch 0903/22/19 03/22/19 08:00 08:00 18:19 WBC 36.7 H RBC Hgb 11.0 L Hct 33.5 L MCV MCH MCHC RDW 15.5 H Plt Count 43 L Lymph % (Auto) [place] % (Auto) Eos % (Auto) Lymph # [place] # Eos # Seg Neutrophils % Seg Neuts % (Manual) 87.0 H Lymphocytes % (Manual) 7.0 L Monocytes % (Manual) Eosinophils % (Manual) Nucleated RBC % Seg Neutrophils # Seg Neutrophils # Man 31.9 H Lymphocytes # (Manual) Monocytes # (Manual) Eosinophils # (Manual) PT INR D-Dimer Heparin Anti-Xa Level POC ABG pH ABG pH POC ABG pCO2 46.4 H POC ABG pO2 108 H ABG pO2 ABG HCO3 ABG O2 Saturation ABG Base Excess ABG Hemoglobin Oxyhemoglobin Sodium 132 L Potassium 5.6 H Chloride 89.6 L Carbon Dioxide 20 L BUN 101 H Creatinine 7.4 H Glucose 124 H POC Glucose Lactic Acid Calcium 5.2 L* Ionized Calcium Phosphorus Magnesium Iron TIBC Ferritin Total Bilirubin 2.80 H Direct Bilirubin AST 119 H ALT 86 H Alkaline Phosphatase 245 H Total Creatine Kinase CK-MB (CK-2) Troponin T C-Reactive Protein Serum Total Protein Total Protein 5.6 L Albumin 2.5 L Rmsud-3-Crnubmzfb Smttb-6-Qouqihfuu PEP Interpretation Triglycerides LDL Cholesterol Direct HDL Cholesterol Free T4 PTH Intact Urine WBC (Auto) Urine Creatinine Salicylates Acetaminophen Crossmatch 03/22/19 03/23/19 03/23/19 20:37 04:49 05:28 WBC 35.9 H RBC Hgb 10.8 L Hct 33.2 L MCV MCH MCHC RDW 15.5 H Plt Count 49 L Lymph % (Auto) [place] % (Auto) Eos % (Auto) Lymph # [place] # Eos # Seg Neutrophils % Seg Neuts % (Manual) 81.0 H Lymphocytes % (Manual) 3.5 L Monocytes % (Manual) Eosinophils % (Manual) Nucleated RBC % Seg Neutrophils # Seg Neutrophils # Man 29.1 H Lymphocytes # (Manual) Monocytes # (Manual) 1.4 H Eosinophils # (Manual) PT INR D-Dimer Heparin Anti-Xa Level POC ABG pH 7.296 L ABG pH POC ABG pCO2 46.2 H POC ABG pO2 ABG pO2 ABG HCO3 ABG O2 Saturation ABG Base Excess ABG Hemoglobin Oxyhemoglobin Sodium 129 L Potassium 5.2 H Chloride 91.1 L Carbon Dioxide BUN 91 H Creatinine 6.6 H Glucose 190 H POC Glucose Lactic Acid Calcium 5.3 L* Ionized Calcium Phosphorus Magnesium Iron TIBC Ferritin Total Bilirubin 1.80 H Direct Bilirubin AST 80 H ALT 62 H Alkaline Phosphatase 209 H Total Creatine Kinase 9758 H CK-MB (CK-2) Troponin T C-Reactive Protein Serum Total Protein Total Protein 5.2 L Albumin 2.2 L Rgibk-8-Legbmsqlt Apbej-0-Pyynvxgig PEP Interpretation Triglycerides LDL Cholesterol Direct HDL Cholesterol Free T4 PTH Intact Urine WBC (Auto) Urine Creatinine Salicylates Acetaminophen Crossmatch 03/23/19 03/23/19 03/23/19 05:28 05:31 11:33 WBC 29.7 H RBC 3.59 L Hgb 10.1 L Hct 31.1 L MCV MCH MCHC RDW 15.4 H Plt Count 47 L Lymph % (Auto) [place] % (Auto) Eos % (Auto) Lymph # [place] # Eos # Seg Neutrophils % Seg Neuts % (Manual) 89.0 H Lymphocytes % (Manual) 6.0 L Monocytes % (Manual) Eosinophils % (Manual) Nucleated RBC % 1.0 H Seg Neutrophils # Seg Neutrophils # Man 26.4 H Lymphocytes # (Manual) Monocytes # (Manual) Eosinophils # (Manual) PT INR D-Dimer Heparin Anti-Xa Level POC ABG pH ABG pH POC ABG pCO2 POC ABG pO2 ABG pO2 ABG HCO3 ABG O2 Saturation ABG Base Excess ABG Hemoglobin Oxyhemoglobin Sodium Potassium Chloride Carbon Dioxide BUN Creatinine Glucose POC Glucose 122 H 113 H Lactic Acid Calcium Ionized Calcium Phosphorus Magnesium Iron TIBC Ferritin Total Bilirubin Direct Bilirubin AST ALT Alkaline Phosphatase Total Creatine Kinase CK-MB (CK-2) Troponin T C-Reactive Protein Serum Total Protein Total Protein Albumin Mwzpc-2-Fsekqhcjt Jnthe-7-Gkwlxxisg PEP Interpretation Triglycerides LDL Cholesterol Direct HDL Cholesterol Free T4 PTH Intact Urine WBC (Auto) Urine Creatinine Salicylates Acetaminophen Crossmatch 03/23/19 03/24/19 03/24/19 17:47 00:00 04:50 WBC 35.0 H RBC Hgb 10.4 L Hct 32.4 L MCV MCH MCHC RDW Plt Count 60 L Lymph % (Auto) [place] % (Auto) Eos % (Auto) Lymph # [place] # Eos # Seg Neutrophils % Seg Neuts % (Manual) 93.0 H Lymphocytes % (Manual) 5.0 L Monocytes % (Manual) Eosinophils % (Manual) Nucleated RBC % 7.0 H Seg Neutrophils # Seg Neutrophils # Man 32.6 H Lymphocytes # (Manual) Monocytes # (Manual) Eosinophils # (Manual) PT INR D-Dimer Heparin Anti-Xa Level POC ABG pH ABG pH POC ABG pCO2 POC ABG pO2 ABG pO2 ABG HCO3 ABG O2 Saturation ABG Base Excess ABG Hemoglobin Oxyhemoglobin Sodium Potassium Chloride Carbon Dioxide BUN Creatinine Glucose POC Glucose 111 H 108 H Lactic Acid Calcium Ionized Calcium Phosphorus Magnesium Iron TIBC Ferritin Total Bilirubin Direct Bilirubin AST ALT Alkaline Phosphatase Total Creatine Kinase CK-MB (CK-2) Troponin T C-Reactive Protein Serum Total Protein Total Protein Albumin Onrmw-8-Pkobwiabh Fnhio-2-Ghapjbjtl PEP Interpretation Triglycerides LDL Cholesterol Direct HDL Cholesterol Free T4 PTH Intact Urine WBC (Auto) Urine Creatinine Salicylates Acetaminophen Crossmatch 03/24/19 03/24/19 03/24/19 04:50 05:06 12:55 WBC RBC Hgb Hct MCV MCH MCHC RDW Plt Count Lymph % (Auto) [place] % (Auto) Eos % (Auto) Lymph # [place] # Eos # Seg Neutrophils % Seg Neuts % (Manual) Lymphocytes % (Manual) Monocytes % (Manual) Eosinophils % (Manual) Nucleated RBC % Seg Neutrophils # Seg Neutrophils # Man Lymphocytes # (Manual) Monocytes # (Manual) Eosinophils # (Manual) PT INR D-Dimer Heparin Anti-Xa Level POC ABG pH ABG pH POC ABG pCO2 POC ABG pO2 ABG pO2 ABG HCO3 ABG O2 Saturation ABG Base Excess ABG Hemoglobin Oxyhemoglobin Sodium 134 L Potassium 5.1 H Chloride 95.3 L Carbon Dioxide 21 L BUN 85 H Creatinine 6.4 H Glucose 109 H POC Glucose 112 H 110 H Lactic Acid Calcium 5.8 L* Ionized Calcium Phosphorus Magnesium Iron TIBC Ferritin Total Bilirubin Direct Bilirubin AST ALT Alkaline Phosphatase Total Creatine Kinase 5747 H CK-MB (CK-2) Troponin T C-Reactive Protein Serum Total Protein Total Protein Albumin Owcut-2-Xclunoocx Gbcja-6-Pohdxhgsu PEP Interpretation Triglycerides LDL Cholesterol Direct HDL Cholesterol Free T4 PTH Intact Urine WBC (Auto) Urine Creatinine Salicylates Acetaminophen Crossmatch 03/24/19 03/25/19 03/25/19 23:29 05:00 05:00 WBC RBC Hgb Hct MCV MCH MCHC RDW Plt Count Lymph % (Auto) [place] % (Auto) Eos % (Auto) Lymph # [place] # Eos # Seg Neutrophils % Seg Neuts % (Manual) Lymphocytes % (Manual) Monocytes % (Manual) Eosinophils % (Manual) Nucleated RBC % Seg Neutrophils # Seg Neutrophils # Man Lymphocytes # (Manual) Monocytes # (Manual) Eosinophils # (Manual) PT INR D-Dimer Heparin Anti-Xa Level POC ABG pH ABG pH POC ABG pCO2 POC ABG pO2 ABG pO2 ABG HCO3 ABG O2 Saturation ABG Base Excess ABG Hemoglobin Oxyhemoglobin Sodium 133 L Potassium Chloride 94.0 L Carbon Dioxide 21 L BUN 81 H Creatinine 6.4 H Glucose POC Glucose 109 H Lactic Acid Calcium 5.5 L* Ionized Calcium Phosphorus Magnesium Iron TIBC Ferritin Total Bilirubin Direct Bilirubin AST 80 H ALT Alkaline Phosphatase 202 H Total Creatine Kinase 3589 H CK-MB (CK-2) Troponin T C-Reactive Protein Serum Total Protein Total Protein 5.3 L Albumin 2.4 L Wryes-9-Rzowvcixu Abqxd-4-Qfgvtopwi PEP Interpretation Triglycerides LDL Cholesterol Direct HDL Cholesterol Free T4 PTH Intact 329.9 H Urine WBC (Auto) Urine Creatinine Salicylates Acetaminophen Crossmatch 03/25/19 03/25/19 03/26/19 05:00 06:30 04:30 WBC 23.3 H RBC 3.61 L Hgb 10.2 L Hct 31.2 L MCV MCH MCHC RDW Plt Count 57 L Lymph % (Auto) [place] % (Auto) Eos % (Auto) Lymph # [place] # Eos # Seg Neutrophils % Seg Neuts % (Manual) 92.0 H Lymphocytes % (Manual) 6.0 L Monocytes % (Manual) Eosinophils % (Manual) Nucleated RBC % Seg Neutrophils # Seg Neutrophils # Man 21.4 H Lymphocytes # (Manual) Monocytes # (Manual) Eosinophils # (Manual) PT INR D-Dimer Heparin Anti-Xa Level POC ABG pH ABG pH 7.326 L POC ABG pCO2 POC ABG pO2 ABG pO2 109.5 H 137.4 H ABG HCO3 18.8 L 18.6 L ABG O2 Saturation ABG Base Excess -4.4 L -6.8 L ABG Hemoglobin 10.1 L 9.9 L Oxyhemoglobin Sodium Potassium Chloride Carbon Dioxide BUN Creatinine Glucose POC Glucose Lactic Acid Calcium Ionized Calcium Phosphorus Magnesium Iron TIBC Ferritin Total Bilirubin Direct Bilirubin AST ALT Alkaline Phosphatase Total Creatine Kinase CK-MB (CK-2) Troponin T C-Reactive Protein Serum Total Protein Total Protein Albumin Drsrx-0-Bahxezrcu Arvvk-3-Axmoymmbk PEP Interpretation Triglycerides LDL Cholesterol Direct HDL Cholesterol Free T4 PTH Intact Urine WBC (Auto) Urine Creatinine Salicylates Acetaminophen Crossmatch 03/26/19 03/26/19 03/26/19 23:22 Unknown Unknown WBC 19.5 H RBC 3.44 L Hgb 9.8 L Hct 29.9 L MCV MCH MCHC RDW Plt Count 85 L Lymph % (Auto) [place] % (Auto) Eos % (Auto) Lymph # [place] # Eos # Seg Neutrophils % Seg Neuts % (Manual) 95.0 H Lymphocytes % (Manual) 3.0 L Monocytes % (Manual) Eosinophils % (Manual) Nucleated RBC % Seg Neutrophils # Seg Neutrophils # Man 18.5 H Lymphocytes # (Manual) 0.6 L Monocytes # (Manual) Eosinophils # (Manual) PT INR D-Dimer Heparin Anti-Xa Level POC ABG pH ABG pH POC ABG pCO2 POC ABG pO2 ABG pO2 ABG HCO3 ABG O2 Saturation ABG Base Excess ABG Hemoglobin Oxyhemoglobin Sodium 135 L Potassium 5.2 H D Chloride 92.2 L Carbon Dioxide 18 L BUN 109 H Creatinine 8.5 H Glucose 117 H POC Glucose 69 L Lactic Acid Calcium 4.5 L* D Ionized Calcium Phosphorus Magnesium Iron TIBC Ferritin Total Bilirubin Direct Bilirubin AST ALT Alkaline Phosphatase Total Creatine Kinase 4527 H CK-MB (CK-2) Troponin T C-Reactive Protein Serum Total Protein Total Protein Albumin Ayblg-1-Xixgonvix Kzabp-8-Vhklseger PEP Interpretation Triglycerides LDL Cholesterol Direct HDL Cholesterol Free T4 PTH Intact Urine WBC (Auto) Urine Creatinine Salicylates Acetaminophen Crossmatch 03/27/19 03/27/19 03/27/19 04:30 04:30 09:00 WBC 19.2 H RBC 3.42 L Hgb 9.9 L Hct 30.0 L MCV MCH MCHC RDW Plt Count 84 L Lymph % (Auto) [place] % (Auto) Eos % (Auto) Lymph # [place] # Eos # Seg Neutrophils % Seg Neuts % (Manual) Lymphocytes % (Manual) Monocytes % (Manual) Eosinophils % (Manual) Nucleated RBC % Seg Neutrophils # Seg Neutrophils # Man Lymphocytes # (Manual) Monocytes # (Manual) Eosinophils # (Manual) PT INR D-Dimer Heparin Anti-Xa Level POC ABG pH ABG pH POC ABG pCO2 POC ABG pO2 ABG pO2 ABG HCO3 ABG O2 Saturation ABG Base Excess ABG Hemoglobin Oxyhemoglobin Sodium 135 L Potassium Chloride 93.5 L Carbon Dioxide BUN 84 H Creatinine 7.1 H Glucose POC Glucose Lactic Acid Calcium 5.0 L* Ionized Calcium Phosphorus Magnesium Iron TIBC Ferritin Total Bilirubin Direct Bilirubin AST 78 H ALT Alkaline Phosphatase 135 H Total Creatine Kinase 4677 H CK-MB (CK-2) Troponin T C-Reactive Protein Serum Total Protein Total Protein 4.8 L Albumin 2.3 L Kvyug-2-Jkqpalwiw Hymzd-8-Rzzoygilr PEP Interpretation Triglycerides 409 H LDL Cholesterol Direct HDL Cholesterol Free T4 PTH Intact Urine WBC (Auto) Urine Creatinine Salicylates Acetaminophen Crossmatch 03/27/19 03/27/19 03/27/19 12:37 14:15 14:15 WBC RBC Hgb 9.7 L Hct 29.5 L MCV MCH MCHC RDW Plt Count 87 L Lymph % (Auto) [place] % (Auto) Eos % (Auto) Lymph # [place] # Eos # Seg Neutrophils % Seg Neuts % (Manual) Lymphocytes % (Manual) Monocytes % (Manual) Eosinophils % (Manual) Nucleated RBC % Seg Neutrophils # Seg Neutrophils # Man Lymphocytes # (Manual) Monocytes # (Manual) Eosinophils # (Manual) PT 15.9 H INR 1.30 H D-Dimer Heparin Anti-Xa Level POC ABG pH ABG pH POC ABG pCO2 POC ABG pO2 ABG pO2 ABG HCO3 ABG O2 Saturation ABG Base Excess ABG Hemoglobin Oxyhemoglobin Sodium Potassium Chloride Carbon Dioxide BUN Creatinine Glucose POC Glucose 129 H Lactic Acid Calcium Ionized Calcium Phosphorus Magnesium Iron TIBC Ferritin Total Bilirubin Direct Bilirubin AST ALT Alkaline Phosphatase Total Creatine Kinase CK-MB (CK-2) Troponin T C-Reactive Protein Serum Total Protein Total Protein Albumin Sbrpi-5-Udounlhvl Ltgid-6-Riopnknul PEP Interpretation Triglycerides LDL Cholesterol Direct HDL Cholesterol Free T4 PTH Intact Urine WBC (Auto) Urine Creatinine Salicylates Acetaminophen Crossmatch 03/27/19 03/27/19 03/27/19 18:00 19:22 19:23 WBC RBC Hgb Hct MCV MCH MCHC RDW Plt Count Lymph % (Auto) [place] % (Auto) Eos % (Auto) Lymph # [place] # Eos # Seg Neutrophils % Seg Neuts % (Manual) Lymphocytes % (Manual) Monocytes % (Manual) Eosinophils % (Manual) Nucleated RBC % Seg Neutrophils # Seg Neutrophils # Man Lymphocytes # (Manual) Monocytes # (Manual) Eosinophils # (Manual) PT INR D-Dimer Heparin Anti-Xa Level < 0.10 L POC ABG pH ABG pH POC ABG pCO2 POC ABG pO2 ABG pO2 ABG HCO3 ABG O2 Saturation ABG Base Excess ABG Hemoglobin Oxyhemoglobin Sodium Potassium Chloride Carbon Dioxide BUN Creatinine Glucose POC Glucose 121 H Lactic Acid Calcium Ionized Calcium Phosphorus Magnesium Iron TIBC Ferritin Total Bilirubin Direct Bilirubin AST ALT Alkaline Phosphatase Total Creatine Kinase 4517 H CK-MB (CK-2) Troponin T C-Reactive Protein Serum Total Protein Total Protein Albumin Vjnfq-9-Efchadbys Gpzpz-5-Zabhsfaeq PEP Interpretation Triglycerides LDL Cholesterol Direct HDL Cholesterol Free T4 PTH Intact Urine WBC (Auto) Urine Creatinine Salicylates Acetaminophen Crossmatch 03/27/19 03/27/19 03/28/19 22:10 23:52 03:49 WBC RBC Hgb Hct MCV MCH MCHC RDW Plt Count Lymph % (Auto) [place] % (Auto) Eos % (Auto) Lymph # [place] # Eos # Seg Neutrophils % Seg Neuts % (Manual) Lymphocytes % (Manual) Monocytes % (Manual) Eosinophils % (Manual) Nucleated RBC % Seg Neutrophils # Seg Neutrophils # Man Lymphocytes # (Manual) Monocytes # (Manual) Eosinophils # (Manual) PT INR D-Dimer Heparin Anti-Xa Level POC ABG pH 7.338 L ABG pH POC ABG pCO2 33.1 L POC ABG pO2 ABG pO2 ABG HCO3 ABG O2 Saturation ABG Base Excess ABG Hemoglobin Oxyhemoglobin Sodium Potassium Chloride Carbon Dioxide BUN Creatinine Glucose POC Glucose 113 H 117 H Lactic Acid Calcium Ionized Calcium Phosphorus Magnesium Iron TIBC Ferritin Total Bilirubin Direct Bilirubin AST ALT Alkaline Phosphatase Total Creatine Kinase CK-MB (CK-2) Troponin T C-Reactive Protein Serum Total Protein Total Protein Albumin Jplqv-7-Xwhjzfwaf Ljgny-1-Cckswtpws PEP Interpretation Triglycerides LDL Cholesterol Direct HDL Cholesterol Free T4 PTH Intact Urine WBC (Auto) Urine Creatinine Salicylates Acetaminophen Crossmatch 03/28/19 03/28/19 03/28/19 05:13 05:13 06:18 WBC RBC Hgb Hct MCV MCH MCHC RDW Plt Count Lymph % (Auto) [place] % (Auto) Eos % (Auto) Lymph # [place] # Eos # Seg Neutrophils % Seg Neuts % (Manual) Lymphocytes % (Manual) Monocytes % (Manual) Eosinophils % (Manual) Nucleated RBC % Seg Neutrophils # Seg Neutrophils # Man Lymphocytes # (Manual) Monocytes # (Manual) Eosinophils # (Manual) PT INR D-Dimer Heparin Anti-Xa Level 0.23 L POC ABG pH ABG pH POC ABG pCO2 POC ABG pO2 ABG pO2 ABG HCO3 ABG O2 Saturation ABG Base Excess ABG Hemoglobin Oxyhemoglobin Sodium 135 L Potassium 5.5 H D Chloride 95.1 L Carbon Dioxide 16 L D BUN 129 H Creatinine 9.3 H Glucose 158 H POC Glucose 202 H Lactic Acid Calcium 4.0 L* D Ionized Calcium Phosphorus 12.40 H Magnesium Iron TIBC Ferritin Total Bilirubin Direct Bilirubin AST ALT Alkaline Phosphatase Total Creatine Kinase 4266 H CK-MB (CK-2) Troponin T C-Reactive Protein Serum Total Protein Total Protein Albumin Csxsg-2-Ijphkisoq Inuqr-9-Pcrlbfhly PEP Interpretation Triglycerides LDL Cholesterol Direct HDL Cholesterol Free T4 PTH Intact Urine WBC (Auto) Urine Creatinine Salicylates Acetaminophen Crossmatch 03/28/19 03/28/19 03/28/19 08:25 10:00 12:00 WBC RBC Hgb 4.9 L* D Hct 15.4 L* D MCV MCH MCHC RDW Plt Count Lymph % (Auto) [place] % (Auto) Eos % (Auto) Lymph # [place] # Eos # Seg Neutrophils % Seg Neuts % (Manual) Lymphocytes % (Manual) Monocytes % (Manual) Eosinophils % (Manual) Nucleated RBC % Seg Neutrophils # Seg Neutrophils # Man Lymphocytes # (Manual) Monocytes # (Manual) Eosinophils # (Manual) PT 17.9 H INR 1.52 H D-Dimer 4845.98 H Heparin Anti-Xa Level POC ABG pH ABG pH POC ABG pCO2 POC ABG pO2 ABG pO2 ABG HCO3 ABG O2 Saturation ABG Base Excess ABG Hemoglobin Oxyhemoglobin Sodium Potassium Chloride Carbon Dioxide BUN Creatinine Glucose POC Glucose Lactic Acid Calcium Ionized Calcium Phosphorus Magnesium Iron TIBC Ferritin Total Bilirubin Direct Bilirubin AST ALT Alkaline Phosphatase Total Creatine Kinase CK-MB (CK-2) Troponin T C-Reactive Protein Serum Total Protein Total Protein Albumin Ikgbv-1-Vmqtbwykx Lbzgp-3-Zefyenuzn PEP Interpretation Triglycerides LDL Cholesterol Direct HDL Cholesterol Free T4 PTH Intact Urine WBC (Auto) Urine Creatinine Salicylates Acetaminophen Crossmatch See Detail 03/28/19 03/28/19 03/28/19 12:28 14:10 17:43 WBC RBC Hgb 5.9 L* Hct 18.3 L* MCV MCH MCHC RDW Plt Count Lymph % (Auto) [place] % (Auto) Eos % (Auto) Lymph # [place] # Eos # Seg Neutrophils % Seg Neuts % (Manual) Lymphocytes % (Manual) Monocytes % (Manual) Eosinophils % (Manual) Nucleated RBC % Seg Neutrophils # Seg Neutrophils # Man Lymphocytes # (Manual) Monocytes # (Manual) Eosinophils # (Manual) PT INR D-Dimer Heparin Anti-Xa Level POC ABG pH ABG pH POC ABG pCO2 POC ABG pO2 ABG pO2 ABG HCO3 ABG O2 Saturation ABG Base Excess ABG Hemoglobin Oxyhemoglobin Sodium Potassium Chloride Carbon Dioxide BUN Creatinine Glucose POC Glucose 153 H 159 H Lactic Acid Calcium Ionized Calcium Phosphorus Magnesium Iron TIBC Ferritin Total Bilirubin Direct Bilirubin AST ALT Alkaline Phosphatase Total Creatine Kinase CK-MB (CK-2) Troponin T C-Reactive Protein Serum Total Protein Total Protein Albumin Llkbi-7-Isyjfwola Ceabp-9-Ersijhaga PEP Interpretation Triglycerides LDL Cholesterol Direct HDL Cholesterol Free T4 PTH Intact Urine WBC (Auto) Urine Creatinine Salicylates Acetaminophen Crossmatch 03/28/19 03/28/19 03/28/19 18:10 Unknown 23:59 WBC 24.8 H RBC 3.42 L Hgb 10.2 L D Hct 31.1 L D MCV MCH MCHC RDW 15.4 H Plt Count 54 L Lymph % (Auto) [place] % (Auto) Eos % (Auto) Lymph # [place] # Eos # Seg Neutrophils % Seg Neuts % (Manual) 91.0 H Lymphocytes % (Manual) 8.0 L Monocytes % (Manual) Eosinophils % (Manual) Nucleated RBC % Seg Neutrophils # Seg Neutrophils # Man 22.6 H Lymphocytes # (Manual) Monocytes # (Manual) Eosinophils # (Manual) PT INR D-Dimer Heparin Anti-Xa Level POC ABG pH ABG pH POC ABG pCO2 POC ABG pO2 ABG pO2 ABG HCO3 ABG O2 Saturation ABG Base Excess ABG Hemoglobin Oxyhemoglobin Sodium Potassium 5.7 H Chloride Carbon Dioxide BUN Creatinine Glucose POC Glucose 107 H Lactic Acid Calcium Ionized Calcium Phosphorus Magnesium Iron TIBC Ferritin Total Bilirubin Direct Bilirubin AST ALT Alkaline Phosphatase Total Creatine Kinase CK-MB (CK-2) Troponin T C-Reactive Protein Serum Total Protein Total Protein Albumin Vaxdh-1-Taxnpaljn Oyvub-3-Tijllbdvr PEP Interpretation Triglycerides LDL Cholesterol Direct HDL Cholesterol Free T4 PTH Intact Urine WBC (Auto) Urine Creatinine Salicylates Acetaminophen Crossmatch 03/29/19 03/29/19 03/29/19 04:29 05:46 06:22 WBC RBC Hgb 8.6 L Hct 25.7 L MCV MCH MCHC RDW Plt Count 93 L Lymph % (Auto) [place] % (Auto) Eos % (Auto) Lymph # [place] # Eos # Seg Neutrophils % Seg Neuts % (Manual) Lymphocytes % (Manual) Monocytes % (Manual) Eosinophils % (Manual) Nucleated RBC % Seg Neutrophils # Seg Neutrophils # Man Lymphocytes # (Manual) Monocytes # (Manual) Eosinophils # (Manual) PT INR D-Dimer Heparin Anti-Xa Level POC ABG pH ABG pH POC ABG pCO2 32.2 L POC ABG pO2 ABG pO2 ABG HCO3 ABG O2 Saturation ABG Base Excess ABG Hemoglobin Oxyhemoglobin Sodium Potassium Chloride Carbon Dioxide BUN Creatinine Glucose POC Glucose 113 H Lactic Acid Calcium Ionized Calcium Phosphorus Magnesium Iron TIBC Ferritin Total Bilirubin Direct Bilirubin AST ALT Alkaline Phosphatase Total Creatine Kinase CK-MB (CK-2) Troponin T C-Reactive Protein Serum Total Protein Total Protein Albumin Palop-6-Kemtatmvz Pcttl-8-Rqqinkkxo PEP Interpretation Triglycerides LDL Cholesterol Direct HDL Cholesterol Free T4 PTH Intact Urine WBC (Auto) Urine Creatinine Salicylates Acetaminophen Crossmatch 03/29/19 03/29/19 03/29/19 06:22 06:22 06:22 WBC 23.2 H RBC 2.91 L Hgb 8.6 L Hct 25.8 L MCV MCH MCHC RDW Plt Count 91 L Lymph % (Auto) [place] % (Auto) Eos % (Auto) Lymph # [place] # Eos # Seg Neutrophils % Seg Neuts % (Manual) Lymphocytes % (Manual) Monocytes % (Manual) Eosinophils % (Manual) Nucleated RBC % Seg Neutrophils # Seg Neutrophils # Man Lymphocytes # (Manual) Monocytes # (Manual) Eosinophils # (Manual) PT INR D-Dimer Heparin Anti-Xa Level POC ABG pH ABG pH POC ABG pCO2 POC ABG pO2 ABG pO2 ABG HCO3 ABG O2 Saturation ABG Base Excess ABG Hemoglobin Oxyhemoglobin Sodium 133 L Potassium Chloride 93.8 L Carbon Dioxide 18 L BUN 109 H Creatinine 7.4 H Glucose 124 H POC Glucose Lactic Acid Calcium 4.6 L* Ionized Calcium Phosphorus Magnesium Iron TIBC Ferritin Total Bilirubin Direct Bilirubin AST ALT Alkaline Phosphatase Total Creatine Kinase 3401 H CK-MB (CK-2) Troponin T C-Reactive Protein Serum Total Protein Total Protein Albumin Eqbay-7-Cjmwxgmeb Nsdgn-8-Sgijbftva PEP Interpretation Triglycerides 309 H LDL Cholesterol Direct HDL Cholesterol Free T4 PTH Intact Urine WBC (Auto) Urine Creatinine Salicylates Acetaminophen Crossmatch 03/29/19 03/29/19 03/29/19 11:48 11:48 18:24 WBC RBC Hgb 7.8 L Hct 23.2 L MCV MCH MCHC RDW Plt Count Lymph % (Auto) [place] % (Auto) Eos % (Auto) Lymph # [place] # Eos # Seg Neutrophils % Seg Neuts % (Manual) Lymphocytes % (Manual) Monocytes % (Manual) Eosinophils % (Manual) Nucleated RBC % Seg Neutrophils # Seg Neutrophils # Man Lymphocytes # (Manual) Monocytes # (Manual) Eosinophils # (Manual) PT 15.3 H INR 1.24 H D-Dimer Heparin Anti-Xa Level POC ABG pH ABG pH POC ABG pCO2 POC ABG pO2 ABG pO2 ABG HCO3 ABG O2 Saturation ABG Base Excess ABG Hemoglobin Oxyhemoglobin Sodium Potassium Chloride Carbon Dioxide BUN Creatinine Glucose POC Glucose 122 H Lactic Acid Calcium Ionized Calcium Phosphorus Magnesium Iron TIBC Ferritin Total Bilirubin Direct Bilirubin AST ALT Alkaline Phosphatase Total Creatine Kinase CK-MB (CK-2) Troponin T C-Reactive Protein Serum Total Protein Total Protein Albumin Cbgcj-3-Vyygkfaov Qhpjs-8-Omyqgmugu PEP Interpretation Triglycerides LDL Cholesterol Direct HDL Cholesterol Free T4 PTH Intact Urine WBC (Auto) Urine Creatinine Salicylates Acetaminophen Crossmatch 03/30/19 03/30/19 03/30/19 00:40 04:31 05:04 WBC RBC Hgb 7.6 L Hct 23.0 L MCV MCH MCHC RDW Plt Count Lymph % (Auto) [place] % (Auto) Eos % (Auto) Lymph # [place] # Eos # Seg Neutrophils % Seg Neuts % (Manual) Lymphocytes % (Manual) Monocytes % (Manual) Eosinophils % (Manual) Nucleated RBC % Seg Neutrophils # Seg Neutrophils # Man Lymphocytes # (Manual) Monocytes # (Manual) Eosinophils # (Manual) PT INR D-Dimer Heparin Anti-Xa Level POC ABG pH 7.346 L ABG pH POC ABG pCO2 POC ABG pO2 62 L ABG pO2 ABG HCO3 ABG O2 Saturation ABG Base Excess ABG Hemoglobin Oxyhemoglobin Sodium Potassium Chloride Carbon Dioxide BUN 79 H Creatinine 6.4 H Glucose POC Glucose Lactic Acid Calcium 6.1 L D Ionized Calcium Phosphorus Magnesium Iron TIBC Ferritin Total Bilirubin Direct Bilirubin AST ALT Alkaline Phosphatase Total Creatine Kinase CK-MB (CK-2) Troponin T C-Reactive Protein Serum Total Protein Total Protein Albumin Jwhhe-6-Ywiwtikmk Tmkvz-0-Xbumcpagg PEP Interpretation Triglycerides LDL Cholesterol Direct HDL Cholesterol Free T4 PTH Intact Urine WBC (Auto) Urine Creatinine Salicylates Acetaminophen Crossmatch 03/30/19 03/30/19 03/30/19 08:45 12:09 22:43 WBC 14.3 H RBC 2.33 L Hgb 7.0 L 7.4 L Hct 21.0 L 22.3 L MCV MCH MCHC RDW 15.6 H Plt Count 135 L Lymph % (Auto) [place] % (Auto) Eos % (Auto) Lymph # [place] # Eos # Seg Neutrophils % Seg Neuts % (Manual) Lymphocytes % (Manual) Monocytes % (Manual) Eosinophils % (Manual) Nucleated RBC % Seg Neutrophils # Seg Neutrophils # Man Lymphocytes # (Manual) Monocytes # (Manual) Eosinophils # (Manual) PT INR D-Dimer Heparin Anti-Xa Level POC ABG pH ABG pH POC ABG pCO2 POC ABG pO2 ABG pO2 ABG HCO3 ABG O2 Saturation ABG Base Excess ABG Hemoglobin Oxyhemoglobin Sodium Potassium Chloride Carbon Dioxide BUN Creatinine Glucose POC Glucose Lactic Acid Calcium Ionized Calcium 3.7 L Phosphorus Magnesium Iron TIBC Ferritin Total Bilirubin Direct Bilirubin AST ALT Alkaline Phosphatase Total Creatine Kinase CK-MB (CK-2) Troponin T C-Reactive Protein Serum Total Protein Total Protein Albumin Ixabr-4-Slohpwpqi Zmucx-1-Djggjfjpl PEP Interpretation Triglycerides LDL Cholesterol Direct HDL Cholesterol Free T4 PTH Intact Urine WBC (Auto) Urine Creatinine Salicylates Acetaminophen Crossmatch 03/30/19 03/30/19 03/31/19 23:38 Unknown 04:44 WBC 11.5 H RBC 2.40 L Hgb 7.3 L Hct 21.9 L MCV MCH MCHC RDW 15.4 H Plt Count Lymph % (Auto) 10.6 L [place] % (Auto) Eos % (Auto) Lymph # [place] # Eos # Seg Neutrophils % 81.7 H Seg Neuts % (Manual) Lymphocytes % (Manual) Monocytes % (Manual) Eosinophils % (Manual) Nucleated RBC % Seg Neutrophils # 9.4 H Seg Neutrophils # Man Lymphocytes # (Manual) Monocytes # (Manual) Eosinophils # (Manual) PT INR D-Dimer Heparin Anti-Xa Level POC ABG pH ABG pH POC ABG pCO2 POC ABG pO2 ABG pO2 ABG HCO3 ABG O2 Saturation ABG Base Excess ABG Hemoglobin Oxyhemoglobin Sodium Potassium Chloride Carbon Dioxide BUN Creatinine Glucose POC Glucose 155 H Lactic Acid Calcium Ionized Calcium Phosphorus Magnesium Iron TIBC Ferritin Total Bilirubin Direct Bilirubin 0.4 H AST 63 H ALT Alkaline Phosphatase Total Creatine Kinase CK-MB (CK-2) Troponin T C-Reactive Protein Serum Total Protein Total Protein 4.9 L Albumin 2.2 L Sjlro-6-Vewkzfnxc Guiil-0-Lgmskanqk PEP Interpretation Triglycerides LDL Cholesterol Direct HDL Cholesterol Free T4 PTH Intact Urine WBC (Auto) Urine Creatinine Salicylates Acetaminophen Crossmatch 03/31/19 03/31/19 03/31/19 04:44 05:44 08:20 WBC RBC Hgb Hct MCV MCH MCHC RDW Plt Count Lymph % (Auto) [place] % (Auto) Eos % (Auto) Lymph # [place] # Eos # Seg Neutrophils % Seg Neuts % (Manual) Lymphocytes % (Manual) Monocytes % (Manual) Eosinophils % (Manual) Nucleated RBC % Seg Neutrophils # Seg Neutrophils # Man Lymphocytes # (Manual) Monocytes # (Manual) Eosinophils # (Manual) PT INR D-Dimer Heparin Anti-Xa Level POC ABG pH ABG pH POC ABG pCO2 53.5 H POC ABG pO2 62 L ABG pO2 ABG HCO3 ABG O2 Saturation ABG Base Excess ABG Hemoglobin Oxyhemoglobin Sodium 135 L Potassium Chloride 96.7 L Carbon Dioxide 19 L BUN 94 H Creatinine 7.8 H Glucose POC Glucose Lactic Acid Calcium 5.3 L* Ionized Calcium Phosphorus 8.20 H Magnesium Iron TIBC Ferritin Total Bilirubin Direct Bilirubin 0.4 H AST 60 H ALT Alkaline Phosphatase Total Creatine Kinase CK-MB (CK-2) Troponin T C-Reactive Protein Serum Total Protein Total Protein 4.8 L Albumin 2.1 L Yfizl-8-Jxnvkjzhz Ybkfi-5-Gacjzvdqn PEP Interpretation Triglycerides LDL Cholesterol Direct HDL Cholesterol Free T4 PTH Intact Urine WBC (Auto) Urine Creatinine Salicylates Acetaminophen Crossmatch 03/31/19 04/01/19 04/01/19 22:14 04:27 04:27 WBC RBC 2.60 L Hgb 8.0 L Hct 24.1 L MCV MCH MCHC RDW 15.7 H Plt Count Lymph % (Auto) 7.9 L [place] % (Auto) Eos % (Auto) Lymph # 0.7 L [place] # Eos # Seg Neutrophils % 83.6 H Seg Neuts % (Manual) Lymphocytes % (Manual) Monocytes % (Manual) Eosinophils % (Manual) Nucleated RBC % Seg Neutrophils # Seg Neutrophils # Man Lymphocytes # (Manual) Monocytes # (Manual) Eosinophils # (Manual) PT INR D-Dimer Heparin Anti-Xa Level POC ABG pH 7.286 L ABG pH POC ABG pCO2 54.7 H POC ABG pO2 179 H ABG pO2 ABG HCO3 ABG O2 Saturation ABG Base Excess ABG Hemoglobin Oxyhemoglobin Sodium Potassium Chloride Carbon Dioxide BUN 68 H Creatinine 6.6 H Glucose POC Glucose Lactic Acid Calcium 6.5 L D Ionized Calcium Phosphorus 7.30 H Magnesium Iron TIBC Ferritin Total Bilirubin Direct Bilirubin AST ALT Alkaline Phosphatase Total Creatine Kinase 1652 H CK-MB (CK-2) Troponin T C-Reactive Protein Serum Total Protein Total Protein Albumin Vanyg-2-Bahkaahrj Qshff-2-Lwjxcdjkz PEP Interpretation Triglycerides LDL Cholesterol Direct HDL Cholesterol Free T4 PTH Intact Urine WBC (Auto) Urine Creatinine Salicylates Acetaminophen Crossmatch 04/01/19 04/01/19 04/01/19 05:14 05:37 18:37 WBC RBC Hgb Hct MCV MCH MCHC RDW Plt Count Lymph % (Auto) [place] % (Auto) Eos % (Auto) Lymph # [place] # Eos # Seg Neutrophils % Seg Neuts % (Manual) Lymphocytes % (Manual) Monocytes % (Manual) Eosinophils % (Manual) Nucleated RBC % Seg Neutrophils # Seg Neutrophils # Man Lymphocytes # (Manual) Monocytes # (Manual) Eosinophils # (Manual) PT INR D-Dimer Heparin Anti-Xa Level POC ABG pH 7.283 L ABG pH POC ABG pCO2 53.4 H POC ABG pO2 241 H ABG pO2 ABG HCO3 ABG O2 Saturation ABG Base Excess ABG Hemoglobin Oxyhemoglobin Sodium Potassium Chloride Carbon Dioxide BUN Creatinine Glucose POC Glucose 111 H 119 H Lactic Acid Calcium Ionized Calcium Phosphorus Magnesium Iron TIBC Ferritin Total Bilirubin Direct Bilirubin AST ALT Alkaline Phosphatase Total Creatine Kinase CK-MB (CK-2) Troponin T C-Reactive Protein Serum Total Protein Total Protein Albumin Jrmpb-6-Aymnhtkvr Cvijq-3-Kjupsporh PEP Interpretation Triglycerides LDL Cholesterol Direct HDL Cholesterol Free T4 PTH Intact Urine WBC (Auto) Urine Creatinine Salicylates Acetaminophen Crossmatch 04/01/19 04/02/19 04/02/19 21:28 04:40 05:03 WBC RBC 2.36 L Hgb 7.2 L Hct 21.9 L MCV MCH MCHC RDW 16.0 H Plt Count Lymph % (Auto) 10.8 L [place] % (Auto) Eos % (Auto) Lymph # 0.8 L [place] # Eos # Seg Neutrophils % 80.3 H Seg Neuts % (Manual) Lymphocytes % (Manual) Monocytes % (Manual) Eosinophils % (Manual) Nucleated RBC % Seg Neutrophils # Seg Neutrophils # Man Lymphocytes # (Manual) Monocytes # (Manual) Eosinophils # (Manual) PT INR D-Dimer Heparin Anti-Xa Level POC ABG pH 7.299 L 7.300 L ABG pH POC ABG pCO2 48.2 H 45.2 H POC ABG pO2 133 H 107 H ABG pO2 ABG HCO3 ABG O2 Saturation ABG Base Excess ABG Hemoglobin Oxyhemoglobin Sodium Potassium Chloride Carbon Dioxide BUN Creatinine Glucose POC Glucose Lactic Acid Calcium Ionized Calcium Phosphorus Magnesium Iron TIBC Ferritin Total Bilirubin Direct Bilirubin AST ALT Alkaline Phosphatase Total Creatine Kinase CK-MB (CK-2) Troponin T C-Reactive Protein Serum Total Protein Total Protein Albumin Jzcsp-6-Xyogivgpx Gjrit-8-Pouzdewrp PEP Interpretation Triglycerides LDL Cholesterol Direct HDL Cholesterol Free T4 PTH Intact Urine WBC (Auto) Urine Creatinine Salicylates Acetaminophen Crossmatch 04/02/19 04/02/19 04/02/19 05:03 05:03 12:15 WBC RBC Hgb 7.4 L Hct 22.6 L MCV MCH MCHC RDW Plt Count Lymph % (Auto) [place] % (Auto) Eos % (Auto) Lymph # [place] # Eos # Seg Neutrophils % Seg Neuts % (Manual) Lymphocytes % (Manual) Monocytes % (Manual) Eosinophils % (Manual) Nucleated RBC % Seg Neutrophils # Seg Neutrophils # Man Lymphocytes # (Manual) Monocytes # (Manual) Eosinophils # (Manual) PT INR D-Dimer Heparin Anti-Xa Level POC ABG pH ABG pH POC ABG pCO2 POC ABG pO2 ABG pO2 ABG HCO3 ABG O2 Saturation ABG Base Excess ABG Hemoglobin Oxyhemoglobin Sodium 136 L Potassium Chloride 97.8 L Carbon Dioxide 18 L BUN 82 H Creatinine 8.2 H Glucose POC Glucose Lactic Acid Calcium 6.7 L Ionized Calcium Phosphorus 7.50 H Magnesium Iron 26 L TIBC 138 L Ferritin 607.0 H Total Bilirubin Direct Bilirubin AST ALT Alkaline Phosphatase Total Creatine Kinase CK-MB (CK-2) Troponin T C-Reactive Protein Serum Total Protein Total Protein Albumin Rzzin-0-Sjbgmnsvr Vtcdw-0-Rrwhblges PEP Interpretation Triglycerides LDL Cholesterol Direct HDL Cholesterol Free T4 PTH Intact Urine WBC (Auto) Urine Creatinine Salicylates Acetaminophen Crossmatch 04/02/19 04/02/19 04/03/19 16:34 17:14 04:18 WBC RBC Hgb Hct MCV MCH MCHC RDW Plt Count Lymph % (Auto) [place] % (Auto) Eos % (Auto) Lymph # [place] # Eos # Seg Neutrophils % Seg Neuts % (Manual) Lymphocytes % (Manual) Monocytes % (Manual) Eosinophils % (Manual) Nucleated RBC % Seg Neutrophils # Seg Neutrophils # Man Lymphocytes # (Manual) Monocytes # (Manual) Eosinophils # (Manual) PT INR D-Dimer Heparin Anti-Xa Level POC ABG pH ABG pH POC ABG pCO2 POC ABG pO2 146 H ABG pO2 ABG HCO3 ABG O2 Saturation ABG Base Excess ABG Hemoglobin Oxyhemoglobin Sodium Potassium Chloride Carbon Dioxide BUN Creatinine Glucose POC Glucose 108 H Lactic Acid Calcium Ionized Calcium Phosphorus Magnesium Iron TIBC Ferritin Total Bilirubin Direct Bilirubin AST ALT Alkaline Phosphatase Total Creatine Kinase CK-MB (CK-2) Troponin T C-Reactive Protein Serum Total Protein Total Protein Albumin Lfuhc-1-Wgxbmkdei Tjguy-7-Njkkgxsdi PEP Interpretation Triglycerides LDL Cholesterol Direct HDL Cholesterol Free T4 PTH Intact Urine WBC (Auto) Urine Creatinine Salicylates Acetaminophen Crossmatch See Detail 04/03/19 04/03/19 04/03/19 04:25 08:30 18:24 WBC RBC 2.40 L Hgb 7.3 L Hct 21.9 L MCV MCH MCHC RDW Plt Count Lymph % (Auto) [place] % (Auto) 7.7 H Eos % (Auto) Lymph # 0.9 L [place] # Eos # Seg Neutrophils % 74.6 H Seg Neuts % (Manual) Lymphocytes % (Manual) Monocytes % (Manual) Eosinophils % (Manual) Nucleated RBC % Seg Neutrophils # Seg Neutrophils # Man Lymphocytes # (Manual) Monocytes # (Manual) Eosinophils # (Manual) PT INR D-Dimer Heparin Anti-Xa Level POC ABG pH ABG pH POC ABG pCO2 POC ABG pO2 ABG pO2 ABG HCO3 ABG O2 Saturation ABG Base Excess ABG Hemoglobin Oxyhemoglobin Sodium 136 L Potassium Chloride 97.0 L Carbon Dioxide BUN 58 H Creatinine 7.3 H Glucose POC Glucose 106 H Lactic Acid Calcium 7.5 L Ionized Calcium Phosphorus 5.80 H D Magnesium Iron TIBC Ferritin Total Bilirubin Direct Bilirubin AST ALT Alkaline Phosphatase Total Creatine Kinase CK-MB (CK-2) Troponin T C-Reactive Protein Serum Total Protein Total Protein Albumin Huhtp-2-Hjaqhglha Zzidq-7-Dxmqbbsqx PEP Interpretation Triglycerides LDL Cholesterol Direct HDL Cholesterol Free T4 PTH Intact Urine WBC (Auto) Urine Creatinine Salicylates Acetaminophen Crossmatch 04/03/19 04/04/19 04/04/19 23:43 04:47 04:47 WBC RBC 2.72 L Hgb 8.3 L Hct 24.7 L MCV MCH MCHC RDW 15.6 H Plt Count Lymph % (Auto) [place] % (Auto) 10.1 H Eos % (Auto) Lymph # 0.8 L [place] # Eos # Seg Neutrophils % 71.4 H Seg Neuts % (Manual) Lymphocytes % (Manual) Monocytes % (Manual) Eosinophils % (Manual) Nucleated RBC % Seg Neutrophils # Seg Neutrophils # Man Lymphocytes # (Manual) Monocytes # (Manual) Eosinophils # (Manual) PT INR D-Dimer Heparin Anti-Xa Level POC ABG pH ABG pH POC ABG pCO2 POC ABG pO2 ABG pO2 123.8 H ABG HCO3 ABG O2 Saturation ABG Base Excess -3.0 L ABG Hemoglobin 7.9 L Oxyhemoglobin Sodium 134 L Potassium Chloride 97.9 L Carbon Dioxide BUN 64 H Creatinine 8.1 H Glucose POC Glucose Lactic Acid Calcium 7.2 L Ionized Calcium Phosphorus Magnesium Iron TIBC Ferritin Total Bilirubin Direct Bilirubin AST ALT Alkaline Phosphatase Total Creatine Kinase CK-MB (CK-2) Troponin T C-Reactive Protein Serum Total Protein Total Protein Albumin Xerwc-7-Rjsjdfsri Wcgcn-5-Tnfcpblbr PEP Interpretation Triglycerides LDL Cholesterol Direct HDL Cholesterol Free T4 PTH Intact Urine WBC (Auto) Urine Creatinine Salicylates Acetaminophen Crossmatch 04/04/19 04/04/19 04/04/19 06:07 13:40 18:18 WBC RBC Hgb Hct MCV MCH MCHC RDW Plt Count Lymph % (Auto) [place] % (Auto) Eos % (Auto) Lymph # [place] # Eos # Seg Neutrophils % Seg Neuts % (Manual) Lymphocytes % (Manual) Monocytes % (Manual) Eosinophils % (Manual) Nucleated RBC % Seg Neutrophils # Seg Neutrophils # Man Lymphocytes # (Manual) Monocytes # (Manual) Eosinophils # (Manual) PT INR D-Dimer Heparin Anti-Xa Level POC ABG pH ABG pH POC ABG pCO2 POC ABG pO2 ABG pO2 95.9 H ABG HCO3 ABG O2 Saturation ABG Base Excess -3.0 L ABG Hemoglobin 8.5 L Oxyhemoglobin Sodium Potassium Chloride Carbon Dioxide BUN Creatinine Glucose POC Glucose 107 H 107 H Lactic Acid Calcium Ionized Calcium Phosphorus Magnesium Iron TIBC Ferritin Total Bilirubin Direct Bilirubin AST ALT Alkaline Phosphatase Total Creatine Kinase CK-MB (CK-2) Troponin T C-Reactive Protein Serum Total Protein Total Protein Albumin Nlpve-7-Gzteaztye Bmemo-6-Sljandorb PEP Interpretation Triglycerides LDL Cholesterol Direct HDL Cholesterol Free T4 PTH Intact Urine WBC (Auto) Urine Creatinine Salicylates Acetaminophen Crossmatch 04/04/19 04/05/19 04/05/19 21:22 04:09 04:09 WBC RBC 2.76 L Hgb 8.4 L Hct 25.4 L MCV MCH MCHC RDW 15.8 H Plt Count 133 L Lymph % (Auto) [place] % (Auto) 9.6 H Eos % (Auto) Lymph # 0.7 L [place] # Eos # Seg Neutrophils % 72.6 H Seg Neuts % (Manual) Lymphocytes % (Manual) Monocytes % (Manual) Eosinophils % (Manual) Nucleated RBC % Seg Neutrophils # Seg Neutrophils # Man Lymphocytes # (Manual) Monocytes # (Manual) Eosinophils # (Manual) PT INR D-Dimer Heparin Anti-Xa Level POC ABG pH ABG pH POC ABG pCO2 47.2 H POC ABG pO2 137 H ABG pO2 ABG HCO3 ABG O2 Saturation ABG Base Excess ABG Hemoglobin Oxyhemoglobin Sodium 136 L Potassium Chloride Carbon Dioxide BUN 46 H Creatinine 6.7 H Glucose POC Glucose Lactic Acid Calcium 7.7 L Ionized Calcium Phosphorus Magnesium Iron TIBC Ferritin Total Bilirubin Direct Bilirubin AST ALT Alkaline Phosphatase Total Creatine Kinase CK-MB (CK-2) Troponin T C-Reactive Protein Serum Total Protein Total Protein Albumin Kldxr-4-Lzxgfnmgm Oqqdt-1-Fnxxnrbfv PEP Interpretation Triglycerides LDL Cholesterol Direct HDL Cholesterol Free T4 PTH Intact Urine WBC (Auto) Urine Creatinine Salicylates Acetaminophen Crossmatch 04/05/19 04/05/19 04/05/19 05:28 06:14 16:50 WBC RBC Hgb Hct MCV MCH MCHC RDW Plt Count Lymph % (Auto) [place] % (Auto) Eos % (Auto) Lymph # [place] # Eos # Seg Neutrophils % Seg Neuts % (Manual) Lymphocytes % (Manual) Monocytes % (Manual) Eosinophils % (Manual) Nucleated RBC % Seg Neutrophils # Seg Neutrophils # Man Lymphocytes # (Manual) Monocytes # (Manual) Eosinophils # (Manual) PT INR D-Dimer Heparin Anti-Xa Level POC ABG pH ABG pH POC ABG pCO2 POC ABG pO2 67 L ABG pO2 ABG HCO3 ABG O2 Saturation ABG Base Excess ABG Hemoglobin Oxyhemoglobin Sodium Potassium Chloride Carbon Dioxide BUN Creatinine Glucose POC Glucose 108 H Lactic Acid Calcium Ionized Calcium Phosphorus Magnesium Iron TIBC Ferritin Total Bilirubin Direct Bilirubin AST ALT Alkaline Phosphatase Total Creatine Kinase CK-MB (CK-2) Troponin T C-Reactive Protein Serum Total Protein Total Protein Albumin Eftgt-3-Civnixfkh Rrryg-7-Ehmanrnje PEP Interpretation Triglycerides LDL Cholesterol Direct HDL Cholesterol Free T4 PTH Intact Urine WBC (Auto) 40.0 H Urine Creatinine Salicylates Acetaminophen Crossmatch 04/05/19 04/06/19 04/06/19 17:22 00:13 04:44 WBC RBC 2.48 L Hgb 7.5 L Hct 22.9 L MCV MCH MCHC RDW 16.0 H Plt Count 107 L Lymph % (Auto) [place] % (Auto) 10.7 H Eos % (Auto) Lymph # 1.0 L [place] # Eos # Seg Neutrophils % Seg Neuts % (Manual) Lymphocytes % (Manual) Monocytes % (Manual) Eosinophils % (Manual) Nucleated RBC % Seg Neutrophils # Seg Neutrophils # Man Lymphocytes # (Manual) Monocytes # (Manual) Eosinophils # (Manual) PT INR D-Dimer Heparin Anti-Xa Level POC ABG pH ABG pH POC ABG pCO2 POC ABG pO2 ABG pO2 ABG HCO3 ABG O2 Saturation ABG Base Excess ABG Hemoglobin Oxyhemoglobin Sodium Potassium Chloride Carbon Dioxide BUN Creatinine Glucose POC Glucose 118 H 138 H Lactic Acid Calcium Ionized Calcium Phosphorus Magnesium Iron TIBC Ferritin Total Bilirubin Direct Bilirubin AST ALT Alkaline Phosphatase Total Creatine Kinase CK-MB (CK-2) Troponin T C-Reactive Protein Serum Total Protein Total Protein Albumin Wfzlc-9-Dylbvtlph Xjpwk-6-Hwwrdjzwf PEP Interpretation Triglycerides LDL Cholesterol Direct HDL Cholesterol Free T4 PTH Intact Urine WBC (Auto) Urine Creatinine Salicylates Acetaminophen Crossmatch 04/06/19 04/06/19 04/06/19 04:44 05:20 05:23 WBC RBC Hgb Hct MCV MCH MCHC RDW Plt Count Lymph % (Auto) [place] % (Auto) Eos % (Auto) Lymph # [place] # Eos # Seg Neutrophils % Seg Neuts % (Manual) Lymphocytes % (Manual) Monocytes % (Manual) Eosinophils % (Manual) Nucleated RBC % Seg Neutrophils # Seg Neutrophils # Man Lymphocytes # (Manual) Monocytes # (Manual) Eosinophils # (Manual) PT INR D-Dimer Heparin Anti-Xa Level POC ABG pH ABG pH POC ABG pCO2 POC ABG pO2 ABG pO2 104.0 H ABG HCO3 ABG O2 Saturation ABG Base Excess -2.1 L ABG Hemoglobin 7.3 L Oxyhemoglobin Sodium Potassium Chloride Carbon Dioxide BUN 64 H Creatinine 8.2 H Glucose 103 H POC Glucose 118 H Lactic Acid Calcium 7.3 L Ionized Calcium Phosphorus Magnesium Iron TIBC Ferritin Total Bilirubin Direct Bilirubin AST ALT Alkaline Phosphatase Total Creatine Kinase CK-MB (CK-2) Troponin T C-Reactive Protein Serum Total Protein Total Protein Albumin Gpjda-6-Cqyoikbzq Vexky-7-Ptklnqryz PEP Interpretation Triglycerides LDL Cholesterol Direct HDL Cholesterol Free T4 PTH Intact Urine WBC (Auto) Urine Creatinine Salicylates Acetaminophen Crossmatch 04/06/19 04/07/19 04/07/19 12:02 05:40 05:40 WBC RBC 2.59 L Hgb 7.9 L Hct 23.8 L MCV MCH MCHC RDW 15.8 H Plt Count 89 L Lymph % (Auto) [place] % (Auto) 10.3 H Eos % (Auto) Lymph # 1.1 L [place] # Eos # Seg Neutrophils % Seg Neuts % (Manual) Lymphocytes % (Manual) Monocytes % (Manual) Eosinophils % (Manual) Nucleated RBC % Seg Neutrophils # Seg Neutrophils # Man Lymphocytes # (Manual) Monocytes # (Manual) Eosinophils # (Manual) PT INR D-Dimer Heparin Anti-Xa Level POC ABG pH ABG pH POC ABG pCO2 POC ABG pO2 ABG pO2 ABG HCO3 ABG O2 Saturation ABG Base Excess ABG Hemoglobin Oxyhemoglobin Sodium 136 L Potassium 3.5 L Chloride Carbon Dioxide BUN 46 H Creatinine 6.2 H Glucose POC Glucose 108 H Lactic Acid Calcium 7.9 L Ionized Calcium Phosphorus Magnesium Iron TIBC Ferritin Total Bilirubin Direct Bilirubin AST ALT Alkaline Phosphatase Total Creatine Kinase CK-MB (CK-2) Troponin T C-Reactive Protein Serum Total Protein Total Protein Albumin Jufhx-0-Omfohzlrt Yzvbm-4-Hpxufvrkp PEP Interpretation Triglycerides LDL Cholesterol Direct HDL Cholesterol Free T4 PTH Intact Urine WBC (Auto) Urine Creatinine Salicylates Acetaminophen Crossmatch 04/07/19 04/09/19 04/09/19 12:57 04:28 04:28 WBC RBC 2.85 L Hgb 8.7 L Hct 26.2 L MCV MCH MCHC RDW 15.6 H Plt Count Lymph % (Auto) [place] % (Auto) 10.4 H Eos % (Auto) Lymph # 1.0 L [place] # Eos # Seg Neutrophils % 73.3 H Seg Neuts % (Manual) Lymphocytes % (Manual) Monocytes % (Manual) Eosinophils % (Manual) Nucleated RBC % Seg Neutrophils # Seg Neutrophils # Man Lymphocytes # (Manual) Monocytes # (Manual) Eosinophils # (Manual) PT INR D-Dimer Heparin Anti-Xa Level POC ABG pH ABG pH POC ABG pCO2 POC ABG pO2 107 H ABG pO2 ABG HCO3 ABG O2 Saturation ABG Base Excess ABG Hemoglobin Oxyhemoglobin Sodium Potassium 3.5 L Chloride 97.8 L Carbon Dioxide BUN 62 H Creatinine 8.1 H Glucose POC Glucose Lactic Acid Calcium 8.2 L Ionized Calcium Phosphorus 5.10 H Magnesium Iron TIBC Ferritin Total Bilirubin Direct Bilirubin AST ALT Alkaline Phosphatase Total Creatine Kinase CK-MB (CK-2) Troponin T C-Reactive Protein Serum Total Protein Total Protein Albumin Wfkel-9-Vzlkcdxhm Fekra-1-Jpydptmqm PEP Interpretation Triglycerides LDL Cholesterol Direct HDL Cholesterol Free T4 PTH Intact Urine WBC (Auto) Urine Creatinine Salicylates Acetaminophen Crossmatch 04/10/19 04/11/19 04/11/19 18:15 00:25 04:16 WBC 11.5 H RBC 2.91 L Hgb 8.9 L Hct 27.6 L MCV 95 H MCH MCHC RDW 17.5 H Plt Count Lymph % (Auto) [place] % (Auto) Eos % (Auto) Lymph # [place] # Eos # Seg Neutrophils % Seg Neuts % (Manual) 71.0 H Lymphocytes % (Manual) Monocytes % (Manual) 8.0 H Eosinophils % (Manual) Nucleated RBC % Seg Neutrophils # Seg Neutrophils # Man 8.2 H Lymphocytes # (Manual) Monocytes # (Manual) 0.9 H Eosinophils # (Manual) PT INR D-Dimer Heparin Anti-Xa Level POC ABG pH ABG pH POC ABG pCO2 POC ABG pO2 ABG pO2 ABG HCO3 ABG O2 Saturation ABG Base Excess ABG Hemoglobin Oxyhemoglobin Sodium Potassium Chloride Carbon Dioxide BUN Creatinine Glucose POC Glucose 109 H 114 H Lactic Acid Calcium Ionized Calcium Phosphorus Magnesium Iron TIBC Ferritin Total Bilirubin Direct Bilirubin AST ALT Alkaline Phosphatase Total Creatine Kinase CK-MB (CK-2) Troponin T C-Reactive Protein Serum Total Protein Total Protein Albumin Kqzsp-4-Yffyaxcyc Nlpye-3-Zvmjjdvjy PEP Interpretation Triglycerides LDL Cholesterol Direct HDL Cholesterol Free T4 PTH Intact Urine WBC (Auto) Urine Creatinine Salicylates Acetaminophen Crossmatch 04/11/19 04/11/19 04/11/19 06:47 09:21 12:15 WBC RBC Hgb Hct MCV MCH MCHC RDW Plt Count Lymph % (Auto) [place] % (Auto) Eos % (Auto) Lymph # [place] # Eos # Seg Neutrophils % Seg Neuts % (Manual) Lymphocytes % (Manual) Monocytes % (Manual) Eosinophils % (Manual) Nucleated RBC % Seg Neutrophils # Seg Neutrophils # Man Lymphocytes # (Manual) Monocytes # (Manual) Eosinophils # (Manual) PT INR D-Dimer Heparin Anti-Xa Level POC ABG pH ABG pH POC ABG pCO2 POC ABG pO2 ABG pO2 ABG HCO3 ABG O2 Saturation ABG Base Excess ABG Hemoglobin Oxyhemoglobin Sodium Potassium 3.5 L Chloride Carbon Dioxide BUN 45 H Creatinine 6.0 H Glucose 113 H POC Glucose 106 H 109 H Lactic Acid Calcium Ionized Calcium Phosphorus Magnesium Iron TIBC Ferritin Total Bilirubin Direct Bilirubin AST ALT Alkaline Phosphatase Total Creatine Kinase CK-MB (CK-2) Troponin T C-Reactive Protein Serum Total Protein Total Protein Albumin Rygoq-7-Sfmgffwjz Dslwq-9-Zjzymaivj PEP Interpretation Triglycerides LDL Cholesterol Direct HDL Cholesterol Free T4 PTH Intact Urine WBC (Auto) Urine Creatinine Salicylates Acetaminophen Crossmatch 04/11/19 04/12/19 04/12/19 18:42 12:13 23:52 WBC RBC Hgb Hct MCV MCH MCHC RDW Plt Count Lymph % (Auto) [place] % (Auto) Eos % (Auto) Lymph # [place] # Eos # Seg Neutrophils % Seg Neuts % (Manual) Lymphocytes % (Manual) Monocytes % (Manual) Eosinophils % (Manual) Nucleated RBC % Seg Neutrophils # Seg Neutrophils # Man Lymphocytes # (Manual) Monocytes # (Manual) Eosinophils # (Manual) PT INR D-Dimer Heparin Anti-Xa Level POC ABG pH ABG pH POC ABG pCO2 POC ABG pO2 ABG pO2 ABG HCO3 ABG O2 Saturation ABG Base Excess ABG Hemoglobin Oxyhemoglobin Sodium Potassium Chloride Carbon Dioxide BUN Creatinine Glucose POC Glucose 107 H 115 H 124 H Lactic Acid Calcium Ionized Calcium Phosphorus Magnesium Iron TIBC Ferritin Total Bilirubin Direct Bilirubin AST ALT Alkaline Phosphatase Total Creatine Kinase CK-MB (CK-2) Troponin T C-Reactive Protein Serum Total Protein Total Protein Albumin Hythu-7-Qautphxde Khvyc-8-Zqdkhfjfo PEP Interpretation Triglycerides LDL Cholesterol Direct HDL Cholesterol Free T4 PTH Intact Urine WBC (Auto) Urine Creatinine Salicylates Acetaminophen Crossmatch 04/13/19 04/13/19 04/13/19 05:00 05:00 05:47 WBC 11.7 H RBC 2.97 L Hgb 8.8 L Hct 27.3 L MCV MCH MCHC RDW 16.1 H Plt Count Lymph % (Auto) 9.5 L [place] % (Auto) 9.9 H Eos % (Auto) Lymph # 1.1 L [place] # 1.2 H Eos # Seg Neutrophils % 78.6 H Seg Neuts % (Manual) Lymphocytes % (Manual) Monocytes % (Manual) Eosinophils % (Manual) Nucleated RBC % Seg Neutrophils # 9.2 H Seg Neutrophils # Man Lymphocytes # (Manual) Monocytes # (Manual) Eosinophils # (Manual) PT INR D-Dimer Heparin Anti-Xa Level POC ABG pH ABG pH POC ABG pCO2 POC ABG pO2 ABG pO2 ABG HCO3 ABG O2 Saturation ABG Base Excess ABG Hemoglobin Oxyhemoglobin Sodium Potassium 3.5 L Chloride Carbon Dioxide BUN 42 H Creatinine 4.6 H Glucose 106 H POC Glucose 107 H Lactic Acid Calcium 10.6 H D Ionized Calcium Phosphorus 5.90 H Magnesium Iron TIBC Ferritin Total Bilirubin Direct Bilirubin AST ALT Alkaline Phosphatase Total Creatine Kinase CK-MB (CK-2) Troponin T C-Reactive Protein Serum Total Protein Total Protein 5.8 L Albumin 2.5 L Iuxpw-5-Ypahrrvxl Ptdpl-6-Ftwqznaet PEP Interpretation Triglycerides LDL Cholesterol Direct HDL Cholesterol Free T4 PTH Intact Urine WBC (Auto) Urine Creatinine Salicylates Acetaminophen Crossmatch 04/13/19 04/14/19 04/14/19 17:32 00:00 03:55 WBC RBC Hgb Hct MCV MCH MCHC RDW Plt Count Lymph % (Auto) [place] % (Auto) Eos % (Auto) Lymph # [place] # Eos # Seg Neutrophils % Seg Neuts % (Manual) Lymphocytes % (Manual) Monocytes % (Manual) Eosinophils % (Manual) Nucleated RBC % Seg Neutrophils # Seg Neutrophils # Man Lymphocytes # (Manual) Monocytes # (Manual) Eosinophils # (Manual) PT INR D-Dimer Heparin Anti-Xa Level POC ABG pH ABG pH POC ABG pCO2 POC ABG pO2 ABG pO2 ABG HCO3 ABG O2 Saturation ABG Base Excess ABG Hemoglobin Oxyhemoglobin Sodium Potassium 3.0 L Chloride Carbon Dioxide BUN 30 H Creatinine 3.1 H Glucose POC Glucose 112 H 120 H Lactic Acid Calcium 10.8 H Ionized Calcium Phosphorus Magnesium Iron TIBC Ferritin Total Bilirubin Direct Bilirubin AST ALT Alkaline Phosphatase Total Creatine Kinase CK-MB (CK-2) Troponin T C-Reactive Protein Serum Total Protein Total Protein Albumin Fipzy-6-Iyepnhrpt Zwwto-6-Slrmxysoj PEP Interpretation Triglycerides LDL Cholesterol Direct HDL Cholesterol Free T4 PTH Intact Urine WBC (Auto) Urine Creatinine Salicylates Acetaminophen Crossmatch 04/14/19 04/14/19 04/15/19 11:56 23:28 05:11 WBC 13.0 H RBC 2.93 L Hgb 8.6 L Hct 26.5 L MCV MCH MCHC RDW 16.5 H Plt Count Lymph % (Auto) 12.2 L [place] % (Auto) 9.1 H Eos % (Auto) Lymph # [place] # 1.2 H Eos # Seg Neutrophils % 77.6 H Seg Neuts % (Manual) Lymphocytes % (Manual) Monocytes % (Manual) Eosinophils % (Manual) Nucleated RBC % Seg Neutrophils # 10.1 H Seg Neutrophils # Man Lymphocytes # (Manual) Monocytes # (Manual) Eosinophils # (Manual) PT INR D-Dimer Heparin Anti-Xa Level POC ABG pH ABG pH POC ABG pCO2 POC ABG pO2 ABG pO2 ABG HCO3 ABG O2 Saturation ABG Base Excess ABG Hemoglobin Oxyhemoglobin Sodium Potassium Chloride Carbon Dioxide BUN Creatinine Glucose POC Glucose 109 H 112 H Lactic Acid Calcium Ionized Calcium Phosphorus Magnesium Iron TIBC Ferritin Total Bilirubin Direct Bilirubin AST ALT Alkaline Phosphatase Total Creatine Kinase CK-MB (CK-2) Troponin T C-Reactive Protein Serum Total Protein Total Protein Albumin Jtmhn-5-Oemwqhxfw Tlhbm-6-Oecpowrxn PEP Interpretation Triglycerides LDL Cholesterol Direct HDL Cholesterol Free T4 PTH Intact Urine WBC (Auto) Urine Creatinine Salicylates Acetaminophen Crossmatch 04/15/19 04/15/19 04/15/19 05:11 05:31 18:03 WBC RBC Hgb Hct MCV MCH MCHC RDW Plt Count Lymph % (Auto) [place] % (Auto) Eos % (Auto) Lymph # [place] # Eos # Seg Neutrophils % Seg Neuts % (Manual) Lymphocytes % (Manual) Monocytes % (Manual) Eosinophils % (Manual) Nucleated RBC % Seg Neutrophils # Seg Neutrophils # Man Lymphocytes # (Manual) Monocytes # (Manual) Eosinophils # (Manual) PT INR D-Dimer Heparin Anti-Xa Level POC ABG pH ABG pH POC ABG pCO2 POC ABG pO2 ABG pO2 ABG HCO3 ABG O2 Saturation ABG Base Excess ABG Hemoglobin Oxyhemoglobin Sodium Potassium 3.2 L Chloride Carbon Dioxide BUN 44 H Creatinine 3.6 H Glucose 106 H POC Glucose 110 H 121 H Lactic Acid Calcium 12.0 H Ionized Calcium Phosphorus 5.00 H Magnesium Iron TIBC Ferritin Total Bilirubin Direct Bilirubin AST ALT Alkaline Phosphatase Total Creatine Kinase CK-MB (CK-2) Troponin T C-Reactive Protein Serum Total Protein Total Protein Albumin Hmahz-8-Ulujssgkj Zeayi-2-Nkucurswq PEP Interpretation Triglycerides LDL Cholesterol Direct HDL Cholesterol Free T4 PTH Intact Urine WBC (Auto) Urine Creatinine Salicylates Acetaminophen Crossmatch 04/16/19 04/16/19 04/17/19 05:07 05:07 04:15 WBC 12.6 H RBC 3.12 L Hgb 9.0 L Hct 28.2 L MCV MCH MCHC RDW 16.6 H Plt Count Lymph % (Auto) 10.3 L [place] % (Auto) 9.8 H Eos % (Auto) Lymph # [place] # 1.2 H Eos # Seg Neutrophils % 78.2 H Seg Neuts % (Manual) Lymphocytes % (Manual) Monocytes % (Manual) Eosinophils % (Manual) Nucleated RBC % Seg Neutrophils # 9.9 H Seg Neutrophils # Man Lymphocytes # (Manual) Monocytes # (Manual) Eosinophils # (Manual) PT INR D-Dimer Heparin Anti-Xa Level POC ABG pH ABG pH POC ABG pCO2 POC ABG pO2 ABG pO2 ABG HCO3 ABG O2 Saturation ABG Base Excess ABG Hemoglobin Oxyhemoglobin Sodium 147 H 150 H Potassium 3.5 L 3.1 L Chloride Carbon Dioxide 32 H BUN 54 H 65 H Creatinine 3.8 H 4.0 H Glucose 102 H 107 H POC Glucose Lactic Acid Calcium 11.7 H 12.0 H Ionized Calcium Phosphorus 5.40 H Magnesium Iron TIBC Ferritin Total Bilirubin Direct Bilirubin AST ALT Alkaline Phosphatase Total Creatine Kinase CK-MB (CK-2) Troponin T C-Reactive Protein 7.10 H Serum Total Protein Total Protein Albumin Zvbqq-2-Hcuzkaidq Xypik-9-Lxptzfvfd PEP Interpretation Triglycerides LDL Cholesterol Direct HDL Cholesterol Free T4 PTH Intact Urine WBC (Auto) Urine Creatinine Salicylates Acetaminophen Crossmatch 04/17/19 04/17/19 04/17/19 04:15 06:05 12:49 WBC 15.8 H RBC 3.32 L Hgb 9.5 L Hct 29.9 L MCV MCH MCHC RDW 16.9 H Plt Count Lymph % (Auto) 12.6 L [place] % (Auto) 11.1 H Eos % (Auto) Lymph # [place] # 1.7 H Eos # Seg Neutrophils % 74.7 H Seg Neuts % (Manual) Lymphocytes % (Manual) Monocytes % (Manual) Eosinophils % (Manual) Nucleated RBC % Seg Neutrophils # 11.8 H Seg Neutrophils # Man Lymphocytes # (Manual) Monocytes # (Manual) Eosinophils # (Manual) PT INR D-Dimer Heparin Anti-Xa Level POC ABG pH ABG pH POC ABG pCO2 POC ABG pO2 ABG pO2 ABG HCO3 ABG O2 Saturation ABG Base Excess ABG Hemoglobin Oxyhemoglobin Sodium Potassium Chloride Carbon Dioxide BUN Creatinine Glucose POC Glucose 111 H 108 H Lactic Acid Calcium Ionized Calcium Phosphorus Magnesium Iron TIBC Ferritin Total Bilirubin Direct Bilirubin AST ALT Alkaline Phosphatase Total Creatine Kinase CK-MB (CK-2) Troponin T C-Reactive Protein Serum Total Protein Total Protein Albumin Xppjw-5-Subiivfid Trxjh-5-Bwqgowryc PEP Interpretation Triglycerides LDL Cholesterol Direct HDL Cholesterol Free T4 PTH Intact Urine WBC (Auto) Urine Creatinine Salicylates Acetaminophen Crossmatch 04/18/19 04/18/19 04/18/19 00:23 04:41 04:41 WBC 19.4 H RBC 3.03 L Hgb 8.6 L Hct 27.5 L MCV MCH MCHC 31 L RDW 16.9 H Plt Count Lymph % (Auto) [place] % (Auto) Eos % (Auto) Lymph # [place] # Eos # Seg Neutrophils % Seg Neuts % (Manual) Lymphocytes % (Manual) Monocytes % (Manual) Eosinophils % (Manual) Nucleated RBC % Seg Neutrophils # Seg Neutrophils # Man Lymphocytes # (Manual) Monocytes # (Manual) Eosinophils # (Manual) PT INR D-Dimer Heparin Anti-Xa Level POC ABG pH ABG pH POC ABG pCO2 POC ABG pO2 ABG pO2 ABG HCO3 ABG O2 Saturation ABG Base Excess ABG Hemoglobin Oxyhemoglobin Sodium 152 H Potassium 3.0 L Chloride Carbon Dioxide BUN 80 H Creatinine 4.3 H Glucose 103 H POC Glucose 115 H Lactic Acid Calcium 11.4 H Ionized Calcium Phosphorus Magnesium Iron TIBC Ferritin Total Bilirubin Direct Bilirubin AST ALT Alkaline Phosphatase Total Creatine Kinase CK-MB (CK-2) Troponin T C-Reactive Protein Serum Total Protein Total Protein Albumin Ahxts-0-Gdbdqyewr Llpfl-9-Neqnzpaxp PEP Interpretation Triglycerides LDL Cholesterol Direct HDL Cholesterol Free T4 PTH Intact Urine WBC (Auto) Urine Creatinine Salicylates Acetaminophen Crossmatch 04/18/19 04/18/19 04/18/19 06:17 12:16 18:10 WBC RBC Hgb Hct MCV MCH MCHC RDW Plt Count Lymph % (Auto) [place] % (Auto) Eos % (Auto) Lymph # [place] # Eos # Seg Neutrophils % Seg Neuts % (Manual) Lymphocytes % (Manual) Monocytes % (Manual) Eosinophils % (Manual) Nucleated RBC % Seg Neutrophils # Seg Neutrophils # Man Lymphocytes # (Manual) Monocytes # (Manual) Eosinophils # (Manual) PT INR D-Dimer Heparin Anti-Xa Level POC ABG pH ABG pH POC ABG pCO2 POC ABG pO2 ABG pO2 ABG HCO3 ABG O2 Saturation ABG Base Excess ABG Hemoglobin Oxyhemoglobin Sodium Potassium Chloride Carbon Dioxide BUN Creatinine Glucose POC Glucose 124 H 119 H 111 H Lactic Acid Calcium Ionized Calcium Phosphorus Magnesium Iron TIBC Ferritin Total Bilirubin Direct Bilirubin AST ALT Alkaline Phosphatase Total Creatine Kinase CK-MB (CK-2) Troponin T C-Reactive Protein Serum Total Protein Total Protein Albumin Fodap-5-Gjaukbrzv Rbzrp-1-Vtghejeow PEP Interpretation Triglycerides LDL Cholesterol Direct HDL Cholesterol Free T4 PTH Intact Urine WBC (Auto) Urine Creatinine Salicylates Acetaminophen Crossmatch 04/19/19 04/19/19 04/20/19 03:49 05:27 09:09 WBC RBC Hgb Hct MCV MCH MCHC RDW Plt Count Lymph % (Auto) [place] % (Auto) Eos % (Auto) Lymph # [place] # Eos # Seg Neutrophils % Seg Neuts % (Manual) Lymphocytes % (Manual) Monocytes % (Manual) Eosinophils % (Manual) Nucleated RBC % Seg Neutrophils # Seg Neutrophils # Man Lymphocytes # (Manual) Monocytes # (Manual) Eosinophils # (Manual) PT INR D-Dimer Heparin Anti-Xa Level POC ABG pH ABG pH POC ABG pCO2 POC ABG pO2 ABG pO2 ABG HCO3 ABG O2 Saturation ABG Base Excess ABG Hemoglobin Oxyhemoglobin Sodium 147 H 150 H Potassium 3.3 L Chloride 108.9 H Carbon Dioxide BUN 45 H 70 H Creatinine 2.9 H 4.1 H Glucose 105 H POC Glucose 124 H Lactic Acid Calcium 10.6 H 11.6 H Ionized Calcium Phosphorus Magnesium Iron TIBC Ferritin Total Bilirubin Direct Bilirubin AST ALT Alkaline Phosphatase Total Creatine Kinase CK-MB (CK-2) Troponin T C-Reactive Protein Serum Total Protein Total Protein Albumin Suxsw-7-Frynabewz Nxqyk-0-Pyxqxhtfc PEP Interpretation Triglycerides LDL Cholesterol Direct HDL Cholesterol Free T4 PTH Intact Urine WBC (Auto) Urine Creatinine Salicylates Acetaminophen Crossmatch 04/20/19 04/20/19 04/21/19 12:29 18:45 01:34 WBC RBC Hgb Hct MCV MCH MCHC RDW Plt Count Lymph % (Auto) [place] % (Auto) Eos % (Auto) Lymph # [place] # Eos # Seg Neutrophils % Seg Neuts % (Manual) Lymphocytes % (Manual) Monocytes % (Manual) Eosinophils % (Manual) Nucleated RBC % Seg Neutrophils # Seg Neutrophils # Man Lymphocytes # (Manual) Monocytes # (Manual) Eosinophils # (Manual) PT INR D-Dimer Heparin Anti-Xa Level POC ABG pH ABG pH POC ABG pCO2 POC ABG pO2 ABG pO2 ABG HCO3 ABG O2 Saturation ABG Base Excess ABG Hemoglobin Oxyhemoglobin Sodium Potassium Chloride Carbon Dioxide BUN 40 H Creatinine 2.6 H Glucose 104 H POC Glucose 131 H 134 H Lactic Acid Calcium 11.0 H Ionized Calcium Phosphorus Magnesium Iron TIBC Ferritin Total Bilirubin Direct Bilirubin AST ALT Alkaline Phosphatase Total Creatine Kinase CK-MB (CK-2) Troponin T C-Reactive Protein Serum Total Protein Total Protein Albumin Phsvh-8-Sfuaoyfcx Gydax-8-Kueljnfqq PEP Interpretation Triglycerides LDL Cholesterol Direct HDL Cholesterol Free T4 PTH Intact Urine WBC (Auto) Urine Creatinine Salicylates Acetaminophen Crossmatch 04/21/19 04/21/19 04/22/19 04:22 04:22 04:24 WBC 14.2 H 14.3 H RBC 3.02 L 3.57 L Hgb 8.7 L 10.1 L Hct 27.2 L 32.1 L MCV MCH MCHC RDW 16.7 H 17.2 H Plt Count Lymph % (Auto) [place] % (Auto) Eos % (Auto) Lymph # [place] # Eos # Seg Neutrophils % Seg Neuts % (Manual) Lymphocytes % (Manual) Monocytes % (Manual) Eosinophils % (Manual) Nucleated RBC % Seg Neutrophils # Seg Neutrophils # Man Lymphocytes # (Manual) Monocytes # (Manual) Eosinophils # (Manual) PT INR D-Dimer Heparin Anti-Xa Level POC ABG pH ABG pH POC ABG pCO2 POC ABG pO2 ABG pO2 ABG HCO3 ABG O2 Saturation ABG Base Excess ABG Hemoglobin Oxyhemoglobin Sodium Potassium Chloride Carbon Dioxide BUN Creatinine Glucose POC Glucose Lactic Acid Calcium Ionized Calcium Phosphorus Magnesium Iron TIBC Ferritin Total Bilirubin Direct Bilirubin AST ALT Alkaline Phosphatase Total Creatine Kinase CK-MB (CK-2) Troponin T C-Reactive Protein Serum Total Protein 5.7 L Total Protein Albumin 2.3 L Uumeo-0-Ufbwzvqsp 0.5 H Ldsuh-9-Qtmdnusem 1.0 H PEP Interpretation see below H Triglycerides LDL Cholesterol Direct HDL Cholesterol Free T4 PTH Intact Urine WBC (Auto) Urine Creatinine Salicylates Acetaminophen Crossmatch 04/22/19 04/22/19 04/22/19 04:24 06:37 11:57 WBC RBC Hgb Hct MCV MCH MCHC RDW Plt Count Lymph % (Auto) [place] % (Auto) Eos % (Auto) Lymph # [place] # Eos # Seg Neutrophils % Seg Neuts % (Manual) Lymphocytes % (Manual) Monocytes % (Manual) Eosinophils % (Manual) Nucleated RBC % Seg Neutrophils # Seg Neutrophils # Man Lymphocytes # (Manual) Monocytes # (Manual) Eosinophils # (Manual) PT INR D-Dimer Heparin Anti-Xa Level POC ABG pH ABG pH POC ABG pCO2 POC ABG pO2 ABG pO2 ABG HCO3 ABG O2 Saturation ABG Base Excess ABG Hemoglobin Oxyhemoglobin Sodium Potassium Chloride Carbon Dioxide BUN 54 H Creatinine 3.5 H Glucose POC Glucose 113 H 110 H Lactic Acid Calcium 11.4 H Ionized Calcium Phosphorus Magnesium Iron TIBC Ferritin Total Bilirubin Direct Bilirubin AST ALT Alkaline Phosphatase Total Creatine Kinase CK-MB (CK-2) Troponin T C-Reactive Protein Serum Total Protein Total Protein Albumin Kfyfb-9-Mpkxsadqg Paics-4-Vcpghpaxp PEP Interpretation Triglycerides LDL Cholesterol Direct HDL Cholesterol Free T4 PTH Intact Urine WBC (Auto) Urine Creatinine Salicylates Acetaminophen Crossmatch 04/22/19 04/23/19 04/23/19 18:33 04:06 04:06 WBC 16.1 H RBC 3.36 L Hgb 9.8 L Hct 30.8 L MCV MCH MCHC RDW 17.7 H Plt Count Lymph % (Auto) 9.9 L [place] % (Auto) Eos % (Auto) Lymph # [place] # Eos # Seg Neutrophils % 84.2 H Seg Neuts % (Manual) Lymphocytes % (Manual) Monocytes % (Manual) Eosinophils % (Manual) Nucleated RBC % Seg Neutrophils # 13.6 H Seg Neutrophils # Man Lymphocytes # (Manual) Monocytes # (Manual) Eosinophils # (Manual) PT INR D-Dimer Heparin Anti-Xa Level POC ABG pH ABG pH POC ABG pCO2 POC ABG pO2 ABG pO2 ABG HCO3 ABG O2 Saturation ABG Base Excess ABG Hemoglobin Oxyhemoglobin Sodium Potassium Chloride Carbon Dioxide BUN 59 H Creatinine 3.8 H Glucose POC Glucose 120 H Lactic Acid Calcium 12.3 H* Ionized Calcium Phosphorus 5.70 H Magnesium Iron TIBC Ferritin Total Bilirubin Direct Bilirubin AST ALT Alkaline Phosphatase Total Creatine Kinase CK-MB (CK-2) Troponin T C-Reactive Protein Serum Total Protein Total Protein Albumin 3.2 L Wdgku-5-Rgrhnfwyd Zcauc-6-Tlrjerljx PEP Interpretation Triglycerides LDL Cholesterol Direct HDL Cholesterol Free T4 PTH Intact Urine WBC (Auto) Urine Creatinine Salicylates Acetaminophen Crossmatch 04/23/19 04/24/19 04/24/19 18:06 04:12 04:12 WBC 18.0 H RBC 3.46 L Hgb 9.8 L Hct 31.2 L MCV MCH MCHC 31 L RDW 17.5 H Plt Count Lymph % (Auto) 11.1 L [place] % (Auto) Eos % (Auto) Lymph # [place] # Eos # Seg Neutrophils % 81.9 H Seg Neuts % (Manual) Lymphocytes % (Manual) Monocytes % (Manual) Eosinophils % (Manual) Nucleated RBC % Seg Neutrophils # 14.7 H Seg Neutrophils # Man Lymphocytes # (Manual) Monocytes # (Manual) Eosinophils # (Manual) PT INR D-Dimer Heparin Anti-Xa Level POC ABG pH ABG pH POC ABG pCO2 POC ABG pO2 ABG pO2 ABG HCO3 ABG O2 Saturation ABG Base Excess ABG Hemoglobin Oxyhemoglobin Sodium Potassium Chloride Carbon Dioxide BUN 56 H Creatinine 3.6 H Glucose POC Glucose 124 H Lactic Acid Calcium 12.6 H* Ionized Calcium Phosphorus Magnesium Iron TIBC Ferritin Total Bilirubin Direct Bilirubin AST ALT Alkaline Phosphatase Total Creatine Kinase CK-MB (CK-2) Troponin T C-Reactive Protein Serum Total Protein Total Protein Albumin 3.2 L [id number] PEP Interpretation Triglycerides LDL Cholesterol Direct HDL Cholesterol Free T4 PTH Intact Urine WBC (Auto) Urine Creatinine Salicylates Acetaminophen Crossmatch 04/24/19 04/24/19 04/25/19 06:21 11:47 05:58 WBC 18.0 H RBC 2.98 L Hgb 8.3 L Hct 26.5 L MCV MCH MCHC 31 L RDW 17.9 H Plt Count Lymph % (Auto) 10.1 L [place] % (Auto) Eos % (Auto) Lymph # [place] # 0.9 H Eos # Seg Neutrophils % 82.8 H Seg Neuts % (Manual) Lymphocytes % (Manual) Monocytes % (Manual) Eosinophils % (Manual) Nucleated RBC % Seg Neutrophils # 15.0 H Seg Neutrophils # Man Lymphocytes # (Manual) Monocytes # (Manual) Eosinophils # (Manual) PT INR D-Dimer Heparin Anti-Xa Level POC ABG pH ABG pH POC ABG pCO2 POC ABG pO2 ABG pO2 ABG HCO3 ABG O2 Saturation ABG Base Excess ABG Hemoglobin Oxyhemoglobin Sodium Potassium Chloride Carbon Dioxide BUN Creatinine Glucose POC Glucose 132 H 106 H Lactic Acid Calcium Ionized Calcium Phosphorus Magnesium Iron TIBC Ferritin Total Bilirubin Direct Bilirubin AST ALT Alkaline Phosphatase Total Creatine Kinase CK-MB (CK-2) Troponin T C-Reactive Protein Serum Total Protein Total Protein Albumin Ywnce-1-Bkanixvwp Bmjav-0-Ewvevzedg PEP Interpretation Triglycerides LDL Cholesterol Direct HDL Cholesterol Free T4 PTH Intact Urine WBC (Auto) Urine Creatinine Salicylates Acetaminophen Crossmatch 04/25/19 04/26/19 04/26/19 05:58 05:57 06:08 WBC RBC Hgb Hct MCV MCH MCHC RDW Plt Count Lymph % (Auto) [place] % (Auto) Eos % (Auto) Lymph # [place] # Eos # Seg Neutrophils % Seg Neuts % (Manual) Lymphocytes % (Manual) Monocytes % (Manual) Eosinophils % (Manual) Nucleated RBC % Seg Neutrophils # Seg Neutrophils # Man Lymphocytes # (Manual) Monocytes # (Manual) Eosinophils # (Manual) PT INR D-Dimer Heparin Anti-Xa Level POC ABG pH ABG pH POC ABG pCO2 POC ABG pO2 ABG pO2 ABG HCO3 ABG O2 Saturation ABG Base Excess ABG Hemoglobin Oxyhemoglobin Sodium Potassium 3.2 L Chloride Carbon Dioxide BUN 52 H 48 H Creatinine 3.2 H 2.9 H Glucose 108 H 112 H POC Glucose 109 H Lactic Acid Calcium 11.4 H 12.5 H* Ionized Calcium Phosphorus 5.90 H Magnesium Iron TIBC Ferritin Total Bilirubin Direct Bilirubin AST ALT Alkaline Phosphatase Total Creatine Kinase CK-MB (CK-2) Troponin T C-Reactive Protein Serum Total Protein Total Protein Albumin 3.0 L Hmrpu-5-Tfaytvgnq Mfwao-6-Oxkvchnca PEP Interpretation Triglycerides LDL Cholesterol Direct HDL Cholesterol Free T4 PTH Intact Urine WBC (Auto) Urine Creatinine Salicylates Acetaminophen Crossmatch 04/26/19 04/26/19 04/27/19 07:22 13:39 05:05 WBC 11.9 H RBC 3.01 L Hgb 8.6 L Hct 26.3 L MCV MCH MCHC RDW 17.6 H Plt Count Lymph % (Auto) 11.9 L [place] % (Auto) Eos % (Auto) Lymph # [place] # Eos # Seg Neutrophils % 78.3 H Seg Neuts % (Manual) Lymphocytes % (Manual) Monocytes % (Manual) Eosinophils % (Manual) Nucleated RBC % Seg Neutrophils # 9.4 H Seg Neutrophils # Man Lymphocytes # (Manual) Monocytes # (Manual) Eosinophils # (Manual) PT INR D-Dimer Heparin Anti-Xa Level POC ABG pH ABG pH POC ABG pCO2 POC ABG pO2 ABG pO2 ABG HCO3 ABG O2 Saturation ABG Base Excess ABG Hemoglobin Oxyhemoglobin Sodium Potassium Chloride Carbon Dioxide BUN 46 H Creatinine 2.8 H Glucose POC Glucose Lactic Acid Calcium > 13.0 H* 12.2 H* Ionized Calcium Phosphorus Magnesium Iron TIBC Ferritin Total Bilirubin Direct Bilirubin AST ALT Alkaline Phosphatase Total Creatine Kinase CK-MB (CK-2) Troponin T C-Reactive Protein Serum Total Protein Total Protein Albumin Kbhsd-1-Qxhflasyu Rwyob-0-Hhxzoakoj PEP Interpretation Triglycerides LDL Cholesterol Direct HDL Cholesterol Free T4 PTH Intact Urine WBC (Auto) Urine Creatinine Salicylates Acetaminophen Crossmatch 04/27/19 04/28/19 04/29/19 05:05 05:17 14:14 WBC RBC Hgb Hct MCV MCH MCHC RDW Plt Count Lymph % (Auto) [place] % (Auto) Eos % (Auto) Lymph # [place] # Eos # Seg Neutrophils % Seg Neuts % (Manual) Lymphocytes % (Manual) Monocytes % (Manual) Eosinophils % (Manual) Nucleated RBC % Seg Neutrophils # Seg Neutrophils # Man Lymphocytes # (Manual) Monocytes # (Manual) Eosinophils # (Manual) PT INR D-Dimer Heparin Anti-Xa Level POC ABG pH ABG pH POC ABG pCO2 POC ABG pO2 ABG pO2 ABG HCO3 ABG O2 Saturation ABG Base Excess ABG Hemoglobin Oxyhemoglobin Sodium 136 L Potassium 3.2 L 3.4 L Chloride Carbon Dioxide BUN 40 H 34 H 33 H Creatinine 2.5 H 2.0 H 1.9 H Glucose 113 H 107 H POC Glucose Lactic Acid Calcium 12.3 H* 12.1 H* 11.5 H Ionized Calcium Phosphorus Magnesium Iron TIBC Ferritin Total Bilirubin Direct Bilirubin AST ALT Alkaline Phosphatase Total Creatine Kinase CK-MB (CK-2) Troponin T C-Reactive Protein Serum Total Protein Total Protein 6.2 L Albumin 2.8 L Mfcns-2-Bkeyjymqz Cjtna-9-Qssaylcfc PEP Interpretation Triglycerides LDL Cholesterol Direct HDL Cholesterol Free T4 PTH Intact Urine WBC (Auto) Urine Creatinine Salicylates Acetaminophen Crossmatch 04/29/19 04/29/19 04/30/19 14:14 14:14 06:47 WBC RBC Hgb Hct MCV MCH MCHC RDW Plt Count Lymph % (Auto) [place] % (Auto) Eos % (Auto) Lymph # [place] # Eos # Seg Neutrophils % Seg Neuts % (Manual) Lymphocytes % (Manual) Monocytes % (Manual) Eosinophils % (Manual) Nucleated RBC % Seg Neutrophils # Seg Neutrophils # Man Lymphocytes # (Manual) Monocytes # (Manual) Eosinophils # (Manual) PT INR D-Dimer Heparin Anti-Xa Level POC ABG pH ABG pH POC ABG pCO2 POC ABG pO2 ABG pO2 ABG HCO3 ABG O2 Saturation ABG Base Excess ABG Hemoglobin Oxyhemoglobin Sodium Potassium 3.2 L Chloride Carbon Dioxide 21 L BUN 26 H Creatinine 1.8 H Glucose POC Glucose Lactic Acid Calcium 10.8 H Ionized Calcium 7.2 H* Phosphorus Magnesium Iron TIBC Ferritin Total Bilirubin Direct Bilirubin AST ALT Alkaline Phosphatase Total Creatine Kinase CK-MB (CK-2) Troponin T C-Reactive Protein Serum Total Protein Total Protein Albumin Nphzq-4-Ieczglxiz Rvkei-6-Tfdffcefc PEP Interpretation Triglycerides LDL Cholesterol Direct HDL Cholesterol Free T4 PTH Intact 8.83 L Urine WBC (Auto) Urine Creatinine Salicylates Acetaminophen Crossmatch 04/30/19 05/01/19 05/01/19 12:17 06:52 06:52 WBC 15.4 H RBC 3.01 L Hgb 8.4 L Hct 26.2 L MCV MCH MCHC RDW 17.0 H Plt Count Lymph % (Auto) 8.4 L [place] % (Auto) 8.9 H Eos % (Auto) Lymph # [place] # 1.4 H Eos # 0.5 H Seg Neutrophils % 78.7 H Seg Neuts % (Manual) Lymphocytes % (Manual) Monocytes % (Manual) Eosinophils % (Manual) Nucleated RBC % Seg Neutrophils # 12.1 H Seg Neutrophils # Man Lymphocytes # (Manual) Monocytes # (Manual) Eosinophils # (Manual) PT INR D-Dimer Heparin Anti-Xa Level POC ABG pH ABG pH POC ABG pCO2 POC ABG pO2 ABG pO2 ABG HCO3 ABG O2 Saturation ABG Base Excess ABG Hemoglobin Oxyhemoglobin Sodium Potassium 3.0 L Chloride Carbon Dioxide BUN 22 H Creatinine Glucose POC Glucose 106 H Lactic Acid Calcium 11.2 H Ionized Calcium Phosphorus Magnesium Iron TIBC Ferritin Total Bilirubin Direct Bilirubin AST ALT Alkaline Phosphatase Total Creatine Kinase CK-MB (CK-2) Troponin T C-Reactive Protein Serum Total Protein Total Protein Albumin 3.0 L Cavsz-9-Ncpglukbh Ioujh-5-Bwrbcvwtu PEP Interpretation Triglycerides LDL Cholesterol Direct HDL Cholesterol Free T4 PTH Intact Urine WBC (Auto) Urine Creatinine Salicylates Acetaminophen Crossmatch 05/01/19 05/01/19 05/02/19 06:52 18:40 05:32 WBC RBC Hgb Hct MCV MCH MCHC RDW Plt Count Lymph % (Auto) [place] % (Auto) Eos % (Auto) Lymph # [place] # Eos # Seg Neutrophils % Seg Neuts % (Manual) Lymphocytes % (Manual) Monocytes % (Manual) Eosinophils % (Manual) Nucleated RBC % Seg Neutrophils # Seg Neutrophils # Man Lymphocytes # (Manual) Monocytes # (Manual) Eosinophils # (Manual) PT INR D-Dimer Heparin Anti-Xa Level POC ABG pH ABG pH POC ABG pCO2 POC ABG pO2 ABG pO2 ABG HCO3 ABG O2 Saturation ABG Base Excess ABG Hemoglobin Oxyhemoglobin Sodium Potassium Chloride Carbon Dioxide BUN Creatinine Glucose POC Glucose 169 H 109 H Lactic Acid Calcium Ionized Calcium Phosphorus Magnesium Iron TIBC Ferritin Total Bilirubin Direct Bilirubin AST ALT Alkaline Phosphatase Total Creatine Kinase CK-MB (CK-2) Troponin T C-Reactive Protein Serum Total Protein 5.7 L Total Protein Albumin 2.5 L Xdzyb-9-Pbcgiapnf 0.5 H Wxlkv-4-Smptdtmpm PEP Interpretation see below H Triglycerides LDL Cholesterol Direct HDL Cholesterol Free T4 PTH Intact Urine WBC (Auto) Urine Creatinine Salicylates Acetaminophen Crossmatch 05/02/19 05/02/19 05/02/19 05:57 05:57 11:43 WBC 14.2 H RBC 2.96 L Hgb 8.3 L Hct 26.0 L MCV MCH MCHC RDW 16.8 H Plt Count Lymph % (Auto) [place] % (Auto) Eos % (Auto) Lymph # [place] # Eos # Seg Neutrophils % Seg Neuts % (Manual) Lymphocytes % (Manual) Monocytes % (Manual) Eosinophils % (Manual) Nucleated RBC % Seg Neutrophils # Seg Neutrophils # Man Lymphocytes # (Manual) Monocytes # (Manual) Eosinophils # (Manual) PT INR D-Dimer Heparin Anti-Xa Level POC ABG pH ABG pH POC ABG pCO2 POC ABG pO2 ABG pO2 ABG HCO3 ABG O2 Saturation ABG Base Excess ABG Hemoglobin Oxyhemoglobin Sodium 136 L Potassium 3.5 L Chloride Carbon Dioxide BUN 21 H Creatinine Glucose POC Glucose 108 H Lactic Acid Calcium 11.1 H Ionized Calcium Phosphorus Magnesium Iron TIBC Ferritin Total Bilirubin Direct Bilirubin AST ALT Alkaline Phosphatase Total Creatine Kinase CK-MB (CK-2) Troponin T C-Reactive Protein Serum Total Protein Total Protein Albumin Ksrxw-4-Jcfakofmk Hjmyq-4-Rlzdzfgvc PEP Interpretation Triglycerides LDL Cholesterol Direct HDL Cholesterol Free T4 PTH Intact Urine WBC (Auto) Urine Creatinine Salicylates Acetaminophen Crossmatch 05/03/19 05/03/19 05/04/19 05:37 05:37 06:49 WBC 12.7 H 11.1 H RBC 3.01 L 3.07 L Hgb 8.3 L 8.6 L Hct 26.1 L 26.6 L MCV MCH MCHC RDW 16.9 H 17.3 H Plt Count Lymph % (Auto) [place] % (Auto) 9.0 H Eos % (Auto) 4.9 H Lymph # [place] # 1.0 H Eos # 0.5 H Seg Neutrophils % Seg Neuts % (Manual) Lymphocytes % (Manual) Monocytes % (Manual) Eosinophils % (Manual) Nucleated RBC % Seg Neutrophils # 7.8 H Seg Neutrophils # Man Lymphocytes # (Manual) Monocytes # (Manual) Eosinophils # (Manual) PT INR D-Dimer Heparin Anti-Xa Level POC ABG pH ABG pH POC ABG pCO2 POC ABG pO2 ABG pO2 ABG HCO3 ABG O2 Saturation ABG Base Excess ABG Hemoglobin Oxyhemoglobin Sodium 135 L Potassium 3.3 L Chloride Carbon Dioxide BUN Creatinine Glucose POC Glucose Lactic Acid Calcium 10.9 H Ionized Calcium Phosphorus Magnesium 1.50 L Iron TIBC Ferritin Total Bilirubin Direct Bilirubin AST ALT Alkaline Phosphatase Total Creatine Kinase CK-MB (CK-2) Troponin T C-Reactive Protein Serum Total Protein Total Protein Albumin Pghbl-3-Dbxigaeaj Fqsez-3-Icgqrzvzm PEP Interpretation Triglycerides LDL Cholesterol Direct HDL Cholesterol Free T4 PTH Intact Urine WBC (Auto) Urine Creatinine Salicylates Acetaminophen Crossmatch 05/04/19 05/04/19 05/04/19 06:49 06:49 11:58 WBC RBC Hgb Hct MCV MCH MCHC RDW Plt Count Lymph % (Auto) [place] % (Auto) Eos % (Auto) Lymph # [place] # Eos # Seg Neutrophils % Seg Neuts % (Manual) Lymphocytes % (Manual) Monocytes % (Manual) Eosinophils % (Manual) Nucleated RBC % Seg Neutrophils # Seg Neutrophils # Man Lymphocytes # (Manual) Monocytes # (Manual) Eosinophils # (Manual) PT 15.5 H INR 1.24 H D-Dimer Heparin Anti-Xa Level POC ABG pH ABG pH POC ABG pCO2 POC ABG pO2 ABG pO2 ABG HCO3 ABG O2 Saturation ABG Base Excess ABG Hemoglobin Oxyhemoglobin Sodium Potassium Chloride Carbon Dioxide 19 L BUN Creatinine Glucose POC Glucose 111 H Lactic Acid Calcium 10.7 H Ionized Calcium Phosphorus Magnesium Iron TIBC Ferritin Total Bilirubin Direct Bilirubin AST ALT Alkaline Phosphatase Total Creatine Kinase CK-MB (CK-2) Troponin T C-Reactive Protein Serum Total Protein Total Protein Albumin Irkdp-7-Nidnbjded Wrbxe-2-Qetkaqcal PEP Interpretation Triglycerides LDL Cholesterol Direct HDL Cholesterol Free T4 PTH Intact Urine WBC (Auto) Urine Creatinine Salicylates Acetaminophen Crossmatch 05/05/19 05/05/19 05/07/19 06:14 06:14 05:55 WBC 11.5 H 12.0 H RBC 3.08 L 3.33 L Hgb 8.5 L 9.2 L Hct 26.5 L 28.5 L MCV MCH MCHC RDW 17.1 H 17.6 H Plt Count Lymph % (Auto) [place] % (Auto) Eos % (Auto) 8.2 H Lymph # [place] # Eos # 1.0 H Seg Neutrophils % Seg Neuts % (Manual) Lymphocytes % (Manual) Monocytes % (Manual) Eosinophils % (Manual) Nucleated RBC % Seg Neutrophils # 8.2 H Seg Neutrophils # Man Lymphocytes # (Manual) Monocytes # (Manual) Eosinophils # (Manual) PT INR D-Dimer Heparin Anti-Xa Level POC ABG pH ABG pH POC ABG pCO2 POC ABG pO2 ABG pO2 ABG HCO3 ABG O2 Saturation ABG Base Excess ABG Hemoglobin Oxyhemoglobin Sodium 136 L Potassium Chloride Carbon Dioxide 21 L BUN Creatinine Glucose POC Glucose Lactic Acid Calcium 10.3 H Ionized Calcium Phosphorus Magnesium Iron TIBC Ferritin Total Bilirubin Direct Bilirubin AST ALT Alkaline Phosphatase Total Creatine Kinase CK-MB (CK-2) Troponin T C-Reactive Protein Serum Total Protein Total Protein Albumin Yefim-3-Voiokjoqq Smkai-2-Kfvvqnhgc PEP Interpretation Triglycerides LDL Cholesterol Direct HDL Cholesterol Free T4 PTH Intact Urine WBC (Auto) Urine Creatinine Salicylates Acetaminophen Crossmatch 05/07/19 05/08/19 05/08/19 05:55 07:27 07:27 WBC 12.5 H RBC 3.50 L Hgb 9.4 L Hct 30.4 L MCV MCH 27 L MCHC 31 L RDW 17.2 H Plt Count Lymph % (Auto) [place] % (Auto) Eos % (Auto) 10.3 H Lymph # [place] # Eos # 1.3 H Seg Neutrophils % Seg Neuts % (Manual) Lymphocytes % (Manual) Monocytes % (Manual) Eosinophils % (Manual) Nucleated RBC % Seg Neutrophils # 8.7 H Seg Neutrophils # Man Lymphocytes # (Manual) Monocytes # (Manual) Eosinophils # (Manual) PT INR D-Dimer Heparin Anti-Xa Level POC ABG pH ABG pH POC ABG pCO2 POC ABG pO2 ABG pO2 ABG HCO3 ABG O2 Saturation ABG Base Excess ABG Hemoglobin Oxyhemoglobin Sodium Potassium 3.5 L Chloride Carbon Dioxide 20 L 20 L BUN Creatinine Glucose POC Glucose Lactic Acid Calcium 10.7 H 10.7 H Ionized Calcium Phosphorus Magnesium Iron TIBC Ferritin Total Bilirubin Direct Bilirubin AST ALT Alkaline Phosphatase Total Creatine Kinase CK-MB (CK-2) Troponin T C-Reactive Protein Serum Total Protein Total Protein Albumin 3.2 L 3.4 L Liwgu-2-Fdpkgwylt Sfscs-9-Dsqtbvxkc PEP Interpretation Triglycerides LDL Cholesterol Direct HDL Cholesterol Free T4 PTH Intact Urine WBC (Auto) Urine Creatinine Salicylates Acetaminophen Crossmatch 05/09/19 05/09/19 05/10/19 05:41 05:41 06:42 WBC 11.7 H RBC 3.27 L Hgb 9.2 L Hct 27.9 L MCV MCH MCHC RDW 17.8 H Plt Count Lymph % (Auto) [place] % (Auto) Eos % (Auto) 14.3 H Lymph # [place] # Eos # 1.7 H Seg Neutrophils % Seg Neuts % (Manual) Lymphocytes % (Manual) Monocytes % (Manual) Eosinophils % (Manual) Nucleated RBC % Seg Neutrophils # Seg Neutrophils # Man Lymphocytes # (Manual) Monocytes # (Manual) Eosinophils # (Manual) PT INR 1.17 H D-Dimer Heparin Anti-Xa Level POC ABG pH ABG pH POC ABG pCO2 POC ABG pO2 ABG pO2 ABG HCO3 ABG O2 Saturation ABG Base Excess ABG Hemoglobin Oxyhemoglobin Sodium 136 L Potassium Chloride Carbon Dioxide 21 L BUN Creatinine Glucose POC Glucose Lactic Acid Calcium 10.6 H Ionized Calcium Phosphorus Magnesium Iron TIBC Ferritin Total Bilirubin Direct Bilirubin AST ALT Alkaline Phosphatase Total Creatine Kinase CK-MB (CK-2) Troponin T C-Reactive Protein Serum Total Protein Total Protein Albumin 3.3 L Adjkr-6-Zfbcwbvcs Nuwje-0-Wgyfioxvx PEP Interpretation Triglycerides LDL Cholesterol Direct HDL Cholesterol Free T4 PTH Intact Urine WBC (Auto) Urine Creatinine Salicylates Acetaminophen Crossmatch 05/10/19 05/11/19 05/13/19 06:42 04:40 08:32 WBC 11.8 H RBC 3.48 L Hgb 9.5 L Hct 30.0 L MCV MCH 27 L MCHC RDW 18.0 H Plt Count Lymph % (Auto) [place] % (Auto) Eos % (Auto) Lymph # [place] # Eos # Seg Neutrophils % Seg Neuts % (Manual) 73.0 H Lymphocytes % (Manual) 11.0 L Monocytes % (Manual) Eosinophils % (Manual) 12.0 H Nucleated RBC % Seg Neutrophils # Seg Neutrophils # Man 8.6 H Lymphocytes # (Manual) Monocytes # (Manual) Eosinophils # (Manual) 1.4 H PT INR D-Dimer Heparin Anti-Xa Level POC ABG pH ABG pH POC ABG pCO2 POC ABG pO2 ABG pO2 ABG HCO3 ABG O2 Saturation ABG Base Excess ABG Hemoglobin Oxyhemoglobin Sodium Potassium Chloride Carbon Dioxide 21 L 20 L BUN Creatinine Glucose POC Glucose Lactic Acid Calcium Ionized Calcium Phosphorus Magnesium Iron TIBC Ferritin Total Bilirubin Direct Bilirubin AST ALT Alkaline Phosphatase Total Creatine Kinase CK-MB (CK-2) Troponin T C-Reactive Protein Serum Total Protein Total Protein Albumin Yqani-6-Pwdssvgkq Dlgik-1-Fqkenpbxc PEP Interpretation Triglycerides LDL Cholesterol Direct HDL Cholesterol Free T4 PTH Intact Urine WBC (Auto) Urine Creatinine Salicylates Acetaminophen Crossmatch 05/13/19 05/14/19 05/19/19 08:32 08:12 06:47 WBC RBC Hgb Hct MCV MCH MCHC RDW Plt Count Lymph % (Auto) [place] % (Auto) Eos % (Auto) Lymph # [place] # Eos # Seg Neutrophils % Seg Neuts % (Manual) Lymphocytes % (Manual) Monocytes % (Manual) Eosinophils % (Manual) Nucleated RBC % Seg Neutrophils # Seg Neutrophils # Man Lymphocytes # (Manual) Monocytes # (Manual) Eosinophils # (Manual) PT INR D-Dimer Heparin Anti-Xa Level POC ABG pH ABG pH POC ABG pCO2 POC ABG pO2 ABG pO2 ABG HCO3 ABG O2 Saturation ABG Base Excess ABG Hemoglobin Oxyhemoglobin Sodium Potassium Chloride Carbon Dioxide 17 L 18 L 18 L BUN Creatinine Glucose 73 L POC Glucose Lactic Acid Calcium Ionized Calcium Phosphorus Magnesium 1.60 L Iron TIBC Ferritin Total Bilirubin Direct Bilirubin AST ALT Alkaline Phosphatase Total Creatine Kinase CK-MB (CK-2) Troponin T C-Reactive Protein Serum Total Protein Total Protein Albumin 3.3 L Kokwx-9-Wcrxvolwj Ztfrg-9-Gbblziyoi PEP Interpretation Triglycerides LDL Cholesterol Direct HDL Cholesterol Free T4 PTH Intact Urine WBC (Auto) Urine Creatinine Salicylates Acetaminophen Crossmatch 05/20/19 05/20/19 05/21/19 06:34 06:34 07:06 WBC RBC 3.22 L Hgb 9.0 L Hct 27.9 L MCV MCH MCHC RDW 18.0 H Plt Count Lymph % (Auto) [place] % (Auto) Eos % (Auto) Lymph # [place] # Eos # Seg Neutrophils % Seg Neuts % (Manual) Lymphocytes % (Manual) Monocytes % (Manual) Eosinophils % (Manual) 12.0 H Nucleated RBC % Seg Neutrophils # Seg Neutrophils # Man Lymphocytes # (Manual) Monocytes # (Manual) Eosinophils # (Manual) 1.1 H PT INR D-Dimer Heparin Anti-Xa Level POC ABG pH ABG pH POC ABG pCO2 POC ABG pO2 ABG pO2 ABG HCO3 ABG O2 Saturation ABG Base Excess ABG Hemoglobin Oxyhemoglobin Sodium Potassium Chloride Carbon Dioxide BUN Creatinine Glucose POC Glucose Lactic Acid Calcium Ionized Calcium Phosphorus 2.20 L 2.30 L Magnesium Iron TIBC Ferritin Total Bilirubin Direct Bilirubin AST ALT Alkaline Phosphatase Total Creatine Kinase CK-MB (CK-2) Troponin T C-Reactive Protein Serum Total Protein Total Protein Albumin Xojvv-3-Aqpsrpqct Aptqz-4-Napccepoz PEP Interpretation Triglycerides LDL Cholesterol Direct HDL Cholesterol Free T4 PTH Intact Urine WBC (Auto) Urine Creatinine Salicylates Acetaminophen Crossmatch Allied health notes reviewed: nursing
--- NOTE | 2019-05-22 15:56 | Progress Note ---
Assessment and Plan Patient is a 43 y/o man w/ a history of psychiatric illness (unknown which psychiatric diagnosis he has been given in the past), who presented on 03/16/19 with altered mental status. During the course of admission, patient was found to have sepsis with septic shock, rhabdomyolysis, RUBEN, and multiorgan failure. According to the patient's clinical findings, the patient likely had toxic metabolic encephalopathy. In support of this diagnosis, during this admission the patient has had multiple metabolic derangements including multiorgan fa ilure, sepsis, septic shock requiring pressor support, RUBEN, rhabdomyolysis. Patient has b/l LE extremity weakness, which is likely due to critical care myopathy. Plan: 1. Metabolic encephalopathy: - Resolved. - Was likely due to multiple underlying metabolic derangements, as well as infections. - Continue supportive care per primary team. 2. Critical care myopathy/neuropathy: - LE weakness is likely due to critical illness mypopathy/neuropathy. Will require long-term PT/OT. - Of note, LE weakness has continued to improve since I last saw patient 3 weeks ago. - Recommend for patient to further have EMG/NCS, which can be done as outpatient. - Discussed at length with patient regarding current neurologic status, and that he has improved significantly since admission. He is now at baseline of mental status. -Will continue to monitor patient. Thank you for allowing me to take part in the care of this patient. Nahid Carroll MD Neurology Subjective Date of service: 05/22/19 Principal diagnosis: myopathy Interval history: Neurology called to follow up on patient. No acute events overnight. Objective - Exam Narrative Exam: Patient is awake, alert, oriented x4, follows complex commands. PERRL, EOMI, no facial weakness noted, tongue midline, visual argueta full, bilaterally intact to light touch. Bilaterally intact light touch in all extremities, with proximal- distal gradient in b/l LE. 2+ reflexes in UE, 1+ reflexes in ankles, 2+ in knees. No dysarthria or aphasia noted. RUE 5/5, LUE 5/5, 2+/5 strength in bilateral lower extremities. - Vital Sign Vital Signs - 12hr 05/22/19 05/22/19 05/22/19 05:21 11:02 12:22 Temperature 97.8 F 98.0 F Pulse Rate 76 76 98 H Respiratory 20 16 Rate Blood Pressure 118/84 120/68 103/70 O2 Sat by Pulse 98 97 Oximetry - General Apperance Constitutional: comfortable - EENT EENT: ATNC, PERRL, mucous membranes moist, hearing intact, vision intact - Respiratory Respiratory: lungs clear, normal breath sounds - Cardiovascular Cardiovascular: regular rate, normal S1, normal S2 Extremities: no clubbing, cyanosis, no inflammation - Gastrointestinal Gastrointestinal: normoactive bowel sounds, soft, non-tender - Integumentary Integumentary: normal - Musculoskeletal Musculoskeletal: no fluid collection - Psychiatric Psychiatric: mood/affect appropriate - Laboratory Findings CBC and BMP: 05/20/19 06:34 05/19/19 06:47 Abnormal Lab Findings: Abnormal Labs 03/16/19 03/16/19 03/16/19 15:32 16:03 16:05 WBC 27.0 H RBC 5.55 H Hgb 15.7 H Hct 47.1 H MCV MCH MCHC RDW Plt Count 75 L Lymph % (Auto) [place] % (Auto) Eos % (Auto) Lymph # [place] # Eos # Seg Neutrophils % Seg Neuts % (Manual) 85.0 H Lymphocytes % (Manual) 2.0 L Monocytes % (Manual) Eosinophils % (Manual) Nucleated RBC % Seg Neutrophils # Seg Neutrophils # Man 23.0 H Lymphocytes # (Manual) 0.5 L Monocytes # (Manual) Eosinophils # (Manual) PT INR D-Dimer Heparin Anti-Xa Level POC ABG pH ABG pH POC ABG pCO2 POC ABG pO2 ABG pO2 ABG HCO3 ABG O2 Saturation ABG Base Excess ABG Hemoglobin Oxyhemoglobin Sodium 127 L Potassium Chloride 87.8 L Carbon Dioxide 17 L BUN 49 H Creatinine 5.8 H Glucose 150 H POC Glucose 118 H Lactic Acid Calcium 6.6 L Ionized Calcium Phosphorus Magnesium 1.10 L Iron TIBC Ferritin Total Bilirubin Direct Bilirubin AST ALT Alkaline Phosphatase Total Creatine Kinase 21283 H CK-MB (CK-2) Troponin T C-Reactive Protein Serum Total Protein Total Protein Albumin Hbdul-6-Kwmqkdgsk Wqkam-0-Nruihzwlj PEP Interpretation Triglycerides LDL Cholesterol Direct HDL Cholesterol Free T4 PTH Intact Urine WBC (Auto) Urine Creatinine Salicylates Acetaminophen Crossmatch 03/16/19 03/16/19 03/16/19 16:59 17:05 17:05 WBC RBC Hgb Hct MCV MCH MCHC RDW Plt Count Lymph % (Auto) [place] % (Auto) Eos % (Auto) Lymph # [place] # Eos # Seg Neutrophils % Seg Neuts % (Manual) Lymphocytes % (Manual) Monocytes % (Manual) Eosinophils % (Manual) Nucleated RBC % Seg Neutrophils # Seg Neutrophils # Man Lymphocytes # (Manual) Monocytes # (Manual) Eosinophils # (Manual) PT INR D-Dimer Heparin Anti-Xa Level POC ABG pH 7.297 L ABG pH POC ABG pCO2 33.0 L POC ABG pO2 ABG pO2 ABG HCO3 ABG O2 Saturation ABG Base Excess ABG Hemoglobin Oxyhemoglobin Sodium Potassium Chloride Carbon Dioxide BUN Creatinine Glucose POC Glucose Lactic Acid Calcium Ionized Calcium Phosphorus Magnesium Iron TIBC Ferritin Total Bilirubin Direct Bilirubin AST ALT Alkaline Phosphatase Total Creatine Kinase 05568 H CK-MB (CK-2) 83.1 H Troponin T C-Reactive Protein Serum Total Protein Total Protein Albumin Gawky-7-Whzrmtoou Cfrgu-5-Vcbviikxk PEP Interpretation Triglycerides LDL Cholesterol Direct HDL Cholesterol Free T4 0.72 L PTH Intact Urine WBC (Auto) Urine Creatinine Salicylates Acetaminophen Crossmatch 03/16/19 03/16/19 03/16/19 17:05 17:05 17:05 WBC RBC Hgb Hct MCV MCH MCHC RDW Plt Count Lymph % (Auto) [place] % (Auto) Eos % (Auto) Lymph # [place] # Eos # Seg Neutrophils % Seg Neuts % (Manual) Lymphocytes % (Manual) Monocytes % (Manual) Eosinophils % (Manual) Nucleated RBC % Seg Neutrophils # Seg Neutrophils # Man Lymphocytes # (Manual) Monocytes # (Manual) Eosinophils # (Manual) PT INR D-Dimer Heparin Anti-Xa Level POC ABG pH ABG pH POC ABG pCO2 POC ABG pO2 ABG pO2 ABG HCO3 ABG O2 Saturation ABG Base Excess ABG Hemoglobin Oxyhemoglobin Sodium Potassium Chloride Carbon Dioxide BUN Creatinine Glucose POC Glucose Lactic Acid 5.10 H* Calcium Ionized Calcium Phosphorus Magnesium Iron TIBC Ferritin Total Bilirubin Direct Bilirubin AST ALT Alkaline Phosphatase Total Creatine Kinase CK-MB (CK-2) Troponin T C-Reactive Protein Serum Total Protein Total Protein Albumin Ewexm-3-Yzlcuslyx Gsizr-2-Ydpihtrlp PEP Interpretation Triglycerides LDL Cholesterol Direct HDL Cholesterol Free T4 PTH Intact Urine WBC (Auto) Urine Creatinine Salicylates < 0.3 L Acetaminophen < 5.0 L Crossmatch 03/16/19 03/16/19 03/16/19 17:05 17:05 20:35 WBC RBC Hgb Hct MCV MCH MCHC RDW Plt Count Lymph % (Auto) [place] % (Auto) Eos % (Auto) Lymph # [place] # Eos # Seg Neutrophils % Seg Neuts % (Manual) Lymphocytes % (Manual) Monocytes % (Manual) Eosinophils % (Manual) Nucleated RBC % Seg Neutrophils # Seg Neutrophils # Man Lymphocytes # (Manual) Monocytes # (Manual) Eosinophils # (Manual) PT 15.9 H INR 1.30 H D-Dimer Heparin Anti-Xa Level POC ABG pH ABG pH POC ABG pCO2 POC ABG pO2 ABG pO2 ABG HCO3 ABG O2 Saturation ABG Base Excess ABG Hemoglobin Oxyhemoglobin Sodium Potassium Chloride Carbon Dioxide BUN Creatinine Glucose POC Glucose Lactic Acid 3.30 H* Calcium Ionized Calcium Phosphorus Magnesium Iron TIBC Ferritin Total Bilirubin 6.20 H Direct Bilirubin 5.9 H AST 800 H ALT 120 H Alkaline Phosphatase Total Creatine Kinase CK-MB (CK-2) Troponin T C-Reactive Protein Serum Total Protein Total Protein 4.4 L Albumin 2.4 L Mktwm-9-Enfrvouzl Bvjtf-3-Sildjgxnf PEP Interpretation Triglycerides LDL Cholesterol Direct HDL Cholesterol Free T4 PTH Intact Urine WBC (Auto) Urine Creatinine Salicylates Acetaminophen Crossmatch 03/16/19 03/16/19 03/16/19 21:45 22:32 Unknown WBC RBC Hgb Hct MCV MCH MCHC RDW Plt Count Lymph % (Auto) [place] % (Auto) Eos % (Auto) Lymph # [place] # Eos # Seg Neutrophils % Seg Neuts % (Manual) Lymphocytes % (Manual) Monocytes % (Manual) Eosinophils % (Manual) Nucleated RBC % Seg Neutrophils # Seg Neutrophils # Man Lymphocytes # (Manual) Monocytes # (Manual) Eosinophils # (Manual) PT INR D-Dimer Heparin Anti-Xa Level POC ABG pH ABG pH POC ABG pCO2 POC ABG pO2 ABG pO2 ABG HCO3 ABG O2 Saturation ABG Base Excess ABG Hemoglobin Oxyhemoglobin Sodium Potassium Chloride Carbon Dioxide BUN Creatinine Glucose POC Glucose Lactic Acid 3.30 H* 3.00 H* Calcium Ionized Calcium Phosphorus Magnesium Iron TIBC Ferritin Total Bilirubin Direct Bilirubin AST ALT Alkaline Phosphatase Total Creatine Kinase CK-MB (CK-2) Troponin T 0.047 H D C-Reactive Protein Serum Total Protein Total Protein Albumin Dtivh-5-Rmmlvjajs Wnzqs-2-Ngdfzmjcb PEP Interpretation Triglycerides 395 H LDL Cholesterol Direct 10 L HDL Cholesterol 7 L Free T4 PTH Intact Urine WBC (Auto) Urine Creatinine Salicylates Acetaminophen Crossmatch 03/17/19 03/17/19 03/17/19 03:45 03:45 03:45 WBC RBC Hgb Hct MCV MCH MCHC RDW Plt Count Lymph % (Auto) [place] % (Auto) Eos % (Auto) Lymph # [place] # Eos # Seg Neutrophils % Seg Neuts % (Manual) Lymphocytes % (Manual) Monocytes % (Manual) Eosinophils % (Manual) Nucleated RBC % Seg Neutrophils # Seg Neutrophils # Man Lymphocytes # (Manual) Monocytes # (Manual) Eosinophils # (Manual) PT INR D-Dimer Heparin Anti-Xa Level POC ABG pH ABG pH POC ABG pCO2 POC ABG pO2 ABG pO2 ABG HCO3 ABG O2 Saturation ABG Base Excess ABG Hemoglobin Oxyhemoglobin Sodium 131 L Potassium Chloride 88.9 L Carbon Dioxide BUN 53 H Creatinine 7.1 H Glucose POC Glucose Lactic Acid 4.10 H* Calcium 5.4 L* D Ionized Calcium Phosphorus 7.30 H Magnesium 1.60 L Iron TIBC Ferritin Total Bilirubin 5.90 H Direct Bilirubin AST 801 H ALT 109 H Alkaline Phosphatase Total Creatine Kinase 11630 H 12116 H CK-MB (CK-2) 41.5 H Troponin T 0.054 H C-Reactive Protein Serum Total Protein Total Protein 4.5 L Albumin 2.0 L Fwkpp-0-Lfyfbdgsm Scbed-4-Yfwvvmviv PEP Interpretation Triglycerides LDL Cholesterol Direct HDL Cholesterol Free T4 PTH Intact Urine WBC (Auto) Urine Creatinine Salicylates Acetaminophen Crossmatch 03/17/19 03/17/19 03/17/19 05:47 07:16 07:16 WBC RBC Hgb Hct MCV MCH MCHC RDW Plt Count Lymph % (Auto) [place] % (Auto) Eos % (Auto) Lymph # [place] # Eos # Seg Neutrophils % Seg Neuts % (Manual) Lymphocytes % (Manual) Monocytes % (Manual) Eosinophils % (Manual) Nucleated RBC % Seg Neutrophils # Seg Neutrophils # Man Lymphocytes # (Manual) Monocytes # (Manual) Eosinophils # (Manual) PT INR D-Dimer Heparin Anti-Xa Level POC ABG pH 7.193 L ABG pH POC ABG pCO2 45.2 H POC ABG pO2 65 L ABG pO2 ABG HCO3 ABG O2 Saturation ABG Base Excess ABG Hemoglobin Oxyhemoglobin Sodium Potassium Chloride Carbon Dioxide BUN Creatinine Glucose POC Glucose Lactic Acid 5.50 H* Calcium Ionized Calcium Phosphorus Magnesium Iron TIBC Ferritin Total Bilirubin Direct Bilirubin AST ALT Alkaline Phosphatase Total Creatine Kinase 25326 H CK-MB (CK-2) 54.3 H Troponin T 0.058 H C-Reactive Protein Serum Total Protein Total Protein Albumin Qsxhc-2-Kxmwvlmel Hueqa-3-Xgkdqrwkg PEP Interpretation Triglycerides LDL Cholesterol Direct HDL Cholesterol Free T4 PTH Intact Urine WBC (Auto) Urine Creatinine Salicylates Acetaminophen Crossmatch 03/17/19 03/17/19 03/17/19 11:52 12:51 13:01 WBC RBC Hgb Hct MCV MCH MCHC RDW Plt Count Lymph % (Auto) [place] % (Auto) Eos % (Auto) Lymph # [place] # Eos # Seg Neutrophils % Seg Neuts % (Manual) Lymphocytes % (Manual) Monocytes % (Manual) Eosinophils % (Manual) Nucleated RBC % Seg Neutrophils # Seg Neutrophils # Man Lymphocytes # (Manual) Monocytes # (Manual) Eosinophils # (Manual) PT INR D-Dimer Heparin Anti-Xa Level POC ABG pH 7.154 L ABG pH POC ABG pCO2 34.3 L POC ABG pO2 73 L ABG pO2 ABG HCO3 ABG O2 Saturation ABG Base Excess ABG Hemoglobin Oxyhemoglobin Sodium Potassium Chloride Carbon Dioxide BUN Creatinine Glucose POC Glucose 60 L Lactic Acid 8.20 H* Calcium Ionized Calcium Phosphorus Magnesium Iron TIBC Ferritin Total Bilirubin Direct Bilirubin AST ALT Alkaline Phosphatase Total Creatine Kinase CK-MB (CK-2) Troponin T C-Reactive Protein Serum Total Protein Total Protein Albumin Fcfai-7-Ttxhftzjf Rsmub-9-Xwxzwpwre PEP Interpretation Triglycerides LDL Cholesterol Direct HDL Cholesterol Free T4 PTH Intact Urine WBC (Auto) Urine Creatinine Salicylates Acetaminophen Crossmatch 03/17/19 03/17/19 03/17/19 14:37 14:37 14:37 WBC 29.3 H RBC Hgb Hct MCV MCH MCHC RDW 15.8 H Plt Count 45 L Lymph % (Auto) [place] % (Auto) Eos % (Auto) Lymph # [place] # Eos # Seg Neutrophils % Seg Neuts % (Manual) 81.0 H Lymphocytes % (Manual) 1.0 L Monocytes % (Manual) 15.0 H Eosinophils % (Manual) Nucleated RBC % Seg Neutrophils # Seg Neutrophils # Man 23.7 H Lymphocytes # (Manual) 0.3 L Monocytes # (Manual) 4.4 H Eosinophils # (Manual) PT INR D-Dimer Heparin Anti-Xa Level POC ABG pH ABG pH POC ABG pCO2 POC ABG pO2 ABG pO2 ABG HCO3 ABG O2 Saturation ABG Base Excess ABG Hemoglobin Oxyhemoglobin Sodium Potassium Chloride Carbon Dioxide BUN Creatinine Glucose POC Glucose Lactic Acid 4.90 H* Calcium Ionized Calcium Phosphorus Magnesium Iron TIBC Ferritin Total Bilirubin Direct Bilirubin AST ALT Alkaline Phosphatase Total Creatine Kinase CK-MB (CK-2) Troponin T C-Reactive Protein 24.90 H Serum Total Protein Total Protein Albumin Dotmp-3-Eiqkpneiz Ldfag-3-Kfkysjesg PEP Interpretation Triglycerides LDL Cholesterol Direct HDL Cholesterol Free T4 PTH Intact Urine WBC (Auto) Urine Creatinine Salicylates Acetaminophen Crossmatch 03/17/19 03/17/19 03/17/19 16:05 16:05 17:02 WBC RBC Hgb Hct MCV MCH MCHC RDW Plt Count Lymph % (Auto) [place] % (Auto) Eos % (Auto) Lymph # [place] # Eos # Seg Neutrophils % Seg Neuts % (Manual) Lymphocytes % (Manual) Monocytes % (Manual) Eosinophils % (Manual) Nucleated RBC % Seg Neutrophils # Seg Neutrophils # Man Lymphocytes # (Manual) Monocytes # (Manual) Eosinophils # (Manual) PT INR D-Dimer Heparin Anti-Xa Level POC ABG pH 7.183 L ABG pH POC ABG pCO2 POC ABG pO2 65 L ABG pO2 ABG HCO3 ABG O2 Saturation ABG Base Excess ABG Hemoglobin Oxyhemoglobin Sodium Potassium Chloride Carbon Dioxide BUN Creatinine Glucose POC Glucose Lactic Acid Calcium Ionized Calcium Phosphorus Magnesium Iron TIBC Ferritin Total Bilirubin Direct Bilirubin AST ALT Alkaline Phosphatase Total Creatine Kinase CK-MB (CK-2) Troponin T C-Reactive Protein Serum Total Protein Total Protein Albumin Clenm-0-Tjafhbzbb Jiney-5-Snahmtego PEP Interpretation Triglycerides LDL Cholesterol Direct HDL Cholesterol Free T4 PTH Intact Urine WBC (Auto) 30.0 H Urine Creatinine 106.6 H Salicylates Acetaminophen Crossmatch 03/18/19 03/18/19 03/18/19 05:12 05:16 05:53 WBC RBC Hgb Hct MCV MCH MCHC RDW Plt Count Lymph % (Auto) [place] % (Auto) Eos % (Auto) Lymph # [place] # Eos # Seg Neutrophils % Seg Neuts % (Manual) Lymphocytes % (Manual) Monocytes % (Manual) Eosinophils % (Manual) Nucleated RBC % Seg Neutrophils # Seg Neutrophils # Man Lymphocytes # (Manual) Monocytes # (Manual) Eosinophils # (Manual) PT INR D-Dimer Heparin Anti-Xa Level POC ABG pH 7.257 L ABG pH POC ABG pCO2 31.6 L POC ABG pO2 69 L ABG pO2 ABG HCO3 ABG O2 Saturation ABG Base Excess ABG Hemoglobin Oxyhemoglobin Sodium Potassium Chloride Carbon Dioxide BUN Creatinine Glucose POC Glucose 141 H Lactic Acid 5.00 H* Calcium Ionized Calcium Phosphorus Magnesium Iron TIBC Ferritin Total Bilirubin Direct Bilirubin AST ALT Alkaline Phosphatase Total Creatine Kinase CK-MB (CK-2) Troponin T C-Reactive Protein Serum Total Protein Total Protein Albumin Irwpo-2-Wivbstcij Hkwck-6-Gzhwwbfyh PEP Interpretation Triglycerides LDL Cholesterol Direct HDL Cholesterol Free T4 PTH Intact Urine WBC (Auto) Urine Creatinine Salicylates Acetaminophen Crossmatch 03/18/19 03/18/19 03/18/19 06:57 08:40 08:40 WBC 31.7 H RBC Hgb Hct MCV MCH MCHC RDW 15.5 H Plt Count 35 L Lymph % (Auto) [place] % (Auto) Eos % (Auto) Lymph # [place] # Eos # Seg Neutrophils % Seg Neuts % (Manual) Lymphocytes % (Manual) Monocytes % (Manual) Eosinophils % (Manual) Nucleated RBC % Seg Neutrophils # Seg Neutrophils # Man Lymphocytes # (Manual) Monocytes # (Manual) Eosinophils # (Manual) PT INR D-Dimer Heparin Anti-Xa Level POC ABG pH ABG pH POC ABG pCO2 POC ABG pO2 ABG pO2 ABG HCO3 ABG O2 Saturation ABG Base Excess ABG Hemoglobin Oxyhemoglobin Sodium 132 L Potassium 5.5 H D Chloride 88.5 L Carbon Dioxide 18 L BUN 71 H Creatinine 8.1 H Glucose 205 H POC Glucose Lactic Acid 5.00 H* Calcium 4.1 L* D Ionized Calcium Phosphorus Magnesium 2.40 H Iron TIBC Ferritin Total Bilirubin 7.50 H Direct Bilirubin AST 1088 H ALT 159 H Alkaline Phosphatase 190 H Total Creatine Kinase 956237 H CK-MB (CK-2) Troponin T C-Reactive Protein Serum Total Protein Total Protein 4.7 L Albumin 1.8 L Euyfa-1-Wnqzirufa Cceif-2-Sodokmvvt PEP Interpretation Triglycerides LDL Cholesterol Direct HDL Cholesterol Free T4 PTH Intact Urine WBC (Auto) Urine Creatinine Salicylates Acetaminophen Crossmatch 03/18/19 03/18/19 03/18/19 12:33 12:50 13:19 WBC RBC Hgb Hct MCV MCH MCHC RDW Plt Count Lymph % (Auto) [place] % (Auto) Eos % (Auto) Lymph # [place] # Eos # Seg Neutrophils % Seg Neuts % (Manual) Lymphocytes % (Manual) Monocytes % (Manual) Eosinophils % (Manual) Nucleated RBC % Seg Neutrophils # Seg Neutrophils # Man Lymphocytes # (Manual) Monocytes # (Manual) Eosinophils # (Manual) PT INR D-Dimer Heparin Anti-Xa Level POC ABG pH 7.282 L ABG pH POC ABG pCO2 POC ABG pO2 67 L ABG pO2 ABG HCO3 ABG O2 Saturation ABG Base Excess ABG Hemoglobin Oxyhemoglobin Sodium Potassium Chloride Carbon Dioxide BUN Creatinine Glucose POC Glucose 129 H Lactic Acid 3.30 H* Calcium Ionized Calcium Phosphorus Magnesium Iron TIBC Ferritin Total Bilirubin Direct Bilirubin AST ALT Alkaline Phosphatase Total Creatine Kinase CK-MB (CK-2) Troponin T C-Reactive Protein Serum Total Protein Total Protein Albumin Xpjrb-7-Wyarddtya Psdmz-7-Njeepxtnu PEP Interpretation Triglycerides LDL Cholesterol Direct HDL Cholesterol Free T4 PTH Intact Urine WBC (Auto) Urine Creatinine Salicylates Acetaminophen Crossmatch 03/18/19 03/18/19 03/18/19 13:19 16:50 18:11 WBC RBC Hgb Hct MCV MCH MCHC RDW Plt Count Lymph % (Auto) [place] % (Auto) Eos % (Auto) Lymph # [place] # Eos # Seg Neutrophils % Seg Neuts % (Manual) Lymphocytes % (Manual) Monocytes % (Manual) Eosinophils % (Manual) Nucleated RBC % Seg Neutrophils # Seg Neutrophils # Man Lymphocytes # (Manual) Monocytes # (Manual) Eosinophils # (Manual) PT INR D-Dimer Heparin Anti-Xa Level POC ABG pH ABG pH POC ABG pCO2 POC ABG pO2 59 L ABG pO2 ABG HCO3 ABG O2 Saturation ABG Base Excess ABG Hemoglobin Oxyhemoglobin Sodium Potassium Chloride Carbon Dioxide BUN Creatinine Glucose POC Glucose 151 H Lactic Acid Calcium 4.2 L* Ionized Calcium Phosphorus Magnesium Iron TIBC Ferritin Total Bilirubin Direct Bilirubin AST ALT Alkaline Phosphatase Total Creatine Kinase 189914 H CK-MB (CK-2) Troponin T C-Reactive Protein Serum Total Protein Total Protein Albumin Ezcfl-9-Hdqppqnwf Otovj-8-Cojskiefu PEP Interpretation Triglycerides LDL Cholesterol Direct HDL Cholesterol Free T4 PTH Intact Urine WBC (Auto) Urine Creatinine Salicylates Acetaminophen Crossmatch 03/18/19 03/18/19 03/19/19 18:20 23:39 01:42 WBC RBC Hgb Hct MCV MCH MCHC RDW Plt Count Lymph % (Auto) [place] % (Auto) Eos % (Auto) Lymph # [place] # Eos # Seg Neutrophils % Seg Neuts % (Manual) Lymphocytes % (Manual) Monocytes % (Manual) Eosinophils % (Manual) Nucleated RBC % Seg Neutrophils # Seg Neutrophils # Man Lymphocytes # (Manual) Monocytes # (Manual) Eosinophils # (Manual) PT INR D-Dimer Heparin Anti-Xa Level POC ABG pH 7.345 L ABG pH 7.285 L POC ABG pCO2 POC ABG pO2 59 L ABG pO2 44.0 L ABG HCO3 ABG O2 Saturation 70.9 L ABG Base Excess -5.7 L ABG Hemoglobin 11.9 L Oxyhemoglobin 69.6 L Sodium Potassium Chloride Carbon Dioxide BUN Creatinine Glucose POC Glucose 152 H Lactic Acid Calcium Ionized Calcium Phosphorus Magnesium Iron TIBC Ferritin Total Bilirubin Direct Bilirubin AST ALT Alkaline Phosphatase Total Creatine Kinase CK-MB (CK-2) Troponin T C-Reactive Protein Serum Total Protein Total Protein Albumin Vfxwk-6-Hcszcxzol Duccn-5-Fabzjauvb PEP Interpretation Triglycerides LDL Cholesterol Direct HDL Cholesterol Free T4 PTH Intact Urine WBC (Auto) Urine Creatinine Salicylates Acetaminophen Crossmatch 03/19/19 03/19/19 03/19/19 04:00 04:00 05:35 WBC 36.5 H RBC Hgb Hct MCV MCH MCHC RDW 15.8 H Plt Count 35 L Lymph % (Auto) [place] % (Auto) Eos % (Auto) Lymph # [place] # Eos # Seg Neutrophils % Seg Neuts % (Manual) Lymphocytes % (Manual) Monocytes % (Manual) Eosinophils % (Manual) Nucleated RBC % Seg Neutrophils # Seg Neutrophils # Man Lymphocytes # (Manual) Monocytes # (Manual) Eosinophils # (Manual) PT INR D-Dimer Heparin Anti-Xa Level POC ABG pH ABG pH 7.265 L POC ABG pCO2 POC ABG pO2 ABG pO2 35.4 L* ABG HCO3 ABG O2 Saturation 54.4 L ABG Base Excess -6.7 L ABG Hemoglobin 12.9 L Oxyhemoglobin 53.4 L Sodium 132 L Potassium 5.7 H Chloride 89.8 L Carbon Dioxide 19 L BUN 62 H Creatinine 6.4 H Glucose 151 H POC Glucose Lactic Acid Calcium 5.2 L* D Ionized Calcium Phosphorus Magnesium Iron TIBC Ferritin Total Bilirubin 7.80 H Direct Bilirubin AST 682 H ALT 130 H Alkaline Phosphatase 167 H Total Creatine Kinase CK-MB (CK-2) Troponin T C-Reactive Protein Serum Total Protein Total Protein 4.8 L Albumin 2.3 L Mmqhm-3-Ghnnyhjgn Igjmw-6-Qxaeqgxkn PEP Interpretation Triglycerides LDL Cholesterol Direct HDL Cholesterol Free T4 PTH Intact Urine WBC (Auto) Urine Creatinine Salicylates Acetaminophen Crossmatch 03/19/19 03/19/19 03/19/19 05:49 09:16 09:50 WBC RBC Hgb Hct MCV MCH MCHC RDW Plt Count Lymph % (Auto) [place] % (Auto) Eos % (Auto) Lymph # [place] # Eos # Seg Neutrophils % Seg Neuts % (Manual) Lymphocytes % (Manual) Monocytes % (Manual) Eosinophils % (Manual) Nucleated RBC % Seg Neutrophils # Seg Neutrophils # Man Lymphocytes # (Manual) Monocytes # (Manual) Eosinophils # (Manual) PT INR D-Dimer Heparin Anti-Xa Level POC ABG pH 7.222 L ABG pH POC ABG pCO2 56.6 H POC ABG pO2 ABG pO2 ABG HCO3 ABG O2 Saturation ABG Base Excess ABG Hemoglobin Oxyhemoglobin Sodium Potassium Chloride Carbon Dioxide BUN Creatinine Glucose POC Glucose 154 H Lactic Acid 2.70 H* Calcium Ionized Calcium Phosphorus Magnesium Iron TIBC Ferritin Total Bilirubin Direct Bilirubin AST ALT Alkaline Phosphatase Total Creatine Kinase CK-MB (CK-2) Troponin T C-Reactive Protein Serum Total Protein Total Protein Albumin Qivno-2-Bhyvtdpzb Revns-1-Wwozecjip PEP Interpretation Triglycerides LDL Cholesterol Direct HDL Cholesterol Free T4 PTH Intact Urine WBC (Auto) Urine Creatinine Salicylates Acetaminophen Crossmatch 03/19/19 03/19/19 03/19/19 09:50 11:28 17:58 WBC RBC Hgb Hct MCV MCH MCHC RDW Plt Count Lymph % (Auto) [place] % (Auto) Eos % (Auto) Lymph # [place] # Eos # Seg Neutrophils % Seg Neuts % (Manual) Lymphocytes % (Manual) Monocytes % (Manual) Eosinophils % (Manual) Nucleated RBC % Seg Neutrophils # Seg Neutrophils # Man Lymphocytes # (Manual) Monocytes # (Manual) Eosinophils # (Manual) PT INR D-Dimer Heparin Anti-Xa Level POC ABG pH 7.250 L ABG pH POC ABG pCO2 52.6 H POC ABG pO2 ABG pO2 ABG HCO3 ABG O2 Saturation ABG Base Excess ABG Hemoglobin Oxyhemoglobin Sodium Potassium Chloride Carbon Dioxide BUN Creatinine Glucose POC Glucose 160 H Lactic Acid Calcium Ionized Calcium Phosphorus Magnesium Iron TIBC Ferritin Total Bilirubin Direct Bilirubin AST ALT Alkaline Phosphatase Total Creatine Kinase 88593 H CK-MB (CK-2) Troponin T C-Reactive Protein Serum Total Protein Total Protein Albumin Codvp-5-Bwkswrfpq Jzure-1-Bvlkqjqwx PEP Interpretation Triglycerides LDL Cholesterol Direct HDL Cholesterol Free T4 PTH Intact Urine WBC (Auto) Urine Creatinine Salicylates Acetaminophen Crossmatch 03/19/19 03/19/19 03/20/19 19:48 21:03 02:16 WBC RBC Hgb Hct MCV MCH MCHC RDW Plt Count Lymph % (Auto) [place] % (Auto) Eos % (Auto) Lymph # [place] # Eos # Seg Neutrophils % Seg Neuts % (Manual) Lymphocytes % (Manual) Monocytes % (Manual) Eosinophils % (Manual) Nucleated RBC % Seg Neutrophils # Seg Neutrophils # Man Lymphocytes # (Manual) Monocytes # (Manual) Eosinophils # (Manual) PT INR D-Dimer Heparin Anti-Xa Level POC ABG pH 7.279 L ABG pH POC ABG pCO2 50.3 H POC ABG pO2 129 H ABG pO2 ABG HCO3 ABG O2 Saturation ABG Base Excess ABG Hemoglobin Oxyhemoglobin Sodium Potassium Chloride Carbon Dioxide BUN Creatinine Glucose POC Glucose 119 H 119 H Lactic Acid Calcium Ionized Calcium Phosphorus Magnesium Iron TIBC Ferritin Total Bilirubin Direct Bilirubin AST ALT Alkaline Phosphatase Total Creatine Kinase CK-MB (CK-2) Troponin T C-Reactive Protein Serum Total Protein Total Protein Albumin Fvmpn-9-Untombzeu Lctyz-2-Oqxrxmnyy PEP Interpretation Triglycerides LDL Cholesterol Direct HDL Cholesterol Free T4 PTH Intact Urine WBC (Auto) Urine Creatinine Salicylates Acetaminophen Crossmatch 03/20/19 03/20/19 03/20/19 04:23 05:05 09:30 WBC 36.3 H RBC Hgb Hct MCV MCH MCHC RDW 15.5 H Plt Count 29 L Lymph % (Auto) [place] % (Auto) Eos % (Auto) Lymph # [place] # Eos # Seg Neutrophils % Seg Neuts % (Manual) Lymphocytes % (Manual) Monocytes % (Manual) Eosinophils % (Manual) Nucleated RBC % Seg Neutrophils # Seg Neutrophils # Man Lymphocytes # (Manual) Monocytes # (Manual) Eosinophils # (Manual) PT INR D-Dimer Heparin Anti-Xa Level POC ABG pH ABG pH POC ABG pCO2 POC ABG pO2 280 H ABG pO2 ABG HCO3 ABG O2 Saturation ABG Base Excess ABG Hemoglobin Oxyhemoglobin Sodium Potassium Chloride Carbon Dioxide BUN Creatinine Glucose POC Glucose 115 H Lactic Acid Calcium Ionized Calcium Phosphorus Magnesium Iron TIBC Ferritin Total Bilirubin Direct Bilirubin AST ALT Alkaline Phosphatase Total Creatine Kinase CK-MB (CK-2) Troponin T C-Reactive Protein Serum Total Protein Total Protein Albumin Kpfdv-0-Tmavgqmwj Yhpvv-1-Jvnkznlfi PEP Interpretation Triglycerides LDL Cholesterol Direct HDL Cholesterol Free T4 PTH Intact Urine WBC (Auto) Urine Creatinine Salicylates Acetaminophen Crossmatch 03/20/19 03/20/19 03/20/19 09:30 09:30 11:34 WBC RBC Hgb Hct MCV MCH MCHC RDW Plt Count Lymph % (Auto) [place] % (Auto) Eos % (Auto) Lymph # [place] # Eos # Seg Neutrophils % Seg Neuts % (Manual) Lymphocytes % (Manual) Monocytes % (Manual) Eosinophils % (Manual) Nucleated RBC % Seg Neutrophils # Seg Neutrophils # Man Lymphocytes # (Manual) Monocytes # (Manual) Eosinophils # (Manual) PT INR D-Dimer Heparin Anti-Xa Level POC ABG pH ABG pH POC ABG pCO2 POC ABG pO2 ABG pO2 ABG HCO3 ABG O2 Saturation ABG Base Excess ABG Hemoglobin Oxyhemoglobin Sodium 131 L Potassium Chloride 92.3 L Carbon Dioxide 20 L BUN 68 H Creatinine 6.1 H Glucose 164 H POC Glucose 141 H Lactic Acid Calcium 5.3 L* Ionized Calcium Phosphorus Magnesium Iron TIBC Ferritin Total Bilirubin 9.50 H Direct Bilirubin AST 381 H ALT 116 H Alkaline Phosphatase 255 H Total Creatine Kinase 89087 H CK-MB (CK-2) Troponin T C-Reactive Protein Serum Total Protein Total Protein 5.1 L Albumin 2.3 L Sbfvf-3-Gipxahqhe Zjiki-4-Dpidcueds PEP Interpretation Triglycerides LDL Cholesterol Direct HDL Cholesterol Free T4 PTH Intact Urine WBC (Auto) Urine Creatinine Salicylates Acetaminophen Crossmatch 03/20/19 03/20/19 03/20/19 14:41 14:45 18:50 WBC RBC Hgb Hct MCV MCH MCHC RDW Plt Count Lymph % (Auto) [place] % (Auto) Eos % (Auto) Lymph # [place] # Eos # Seg Neutrophils % Seg Neuts % (Manual) Lymphocytes % (Manual) Monocytes % (Manual) Eosinophils % (Manual) Nucleated RBC % Seg Neutrophils # Seg Neutrophils # Man Lymphocytes # (Manual) Monocytes # (Manual) Eosinophils # (Manual) PT INR D-Dimer Heparin Anti-Xa Level POC ABG pH ABG pH POC ABG pCO2 POC ABG pO2 ABG pO2 ABG HCO3 ABG O2 Saturation ABG Base Excess ABG Hemoglobin Oxyhemoglobin Sodium Potassium Chloride Carbon Dioxide BUN Creatinine Glucose POC Glucose 117 H Lactic Acid 2.90 H* Calcium Ionized Calcium Phosphorus Magnesium Iron TIBC Ferritin Total Bilirubin Direct Bilirubin AST ALT Alkaline Phosphatase Total Creatine Kinase CK-MB (CK-2) Troponin T C-Reactive Protein 13.30 H Serum Total Protein Total Protein Albumin Jzpfw-8-Kdunbozud Osuoi-4-Tuxcsdicx PEP Interpretation Triglycerides LDL Cholesterol Direct HDL Cholesterol Free T4 PTH Intact Urine WBC (Auto) Urine Creatinine Salicylates Acetaminophen Crossmatch 03/20/19 03/21/19 03/21/19 21:55 04:26 04:26 WBC 37.8 H RBC Hgb Hct MCV MCH MCHC RDW 15.4 H Plt Count 36 L Lymph % (Auto) [place] % (Auto) Eos % (Auto) Lymph # [place] # Eos # Seg Neutrophils % Seg Neuts % (Manual) 93.0 H Lymphocytes % (Manual) 3.0 L Monocytes % (Manual) Eosinophils % (Manual) Nucleated RBC % 1.0 H Seg Neutrophils # 34.6 H Seg Neutrophils # Man 35.2 H Lymphocytes # (Manual) 1.1 L Monocytes # (Manual) Eosinophils # (Manual) PT INR D-Dimer Heparin Anti-Xa Level POC ABG pH ABG pH POC ABG pCO2 POC ABG pO2 ABG pO2 ABG HCO3 ABG O2 Saturation ABG Base Excess ABG Hemoglobin Oxyhemoglobin Sodium 131 L Potassium Chloride 90.7 L Carbon Dioxide 21 L BUN 69 H Creatinine 5.7 H Glucose 170 H POC Glucose 128 H Lactic Acid Calcium 6.1 L D Ionized Calcium Phosphorus Magnesium Iron TIBC Ferritin Total Bilirubin 9.50 H Direct Bilirubin AST 308 H ALT 124 H Alkaline Phosphatase 327 H Total Creatine Kinase 19769 H CK-MB (CK-2) Troponin T C-Reactive Protein Serum Total Protein Total Protein 5.7 L Albumin 2.6 L Dyybq-3-Vzcsenrzu Fipsm-2-Nmkrziuyx PEP Interpretation Triglycerides LDL Cholesterol Direct HDL Cholesterol Free T4 PTH Intact Urine WBC (Auto) Urine Creatinine Salicylates Acetaminophen Crossmatch 03/21/19 03/21/19 03/21/19 05:17 05:39 08:29 WBC RBC Hgb Hct MCV MCH MCHC RDW Plt Count Lymph % (Auto) [place] % (Auto) Eos % (Auto) Lymph # [place] # Eos # Seg Neutrophils % Seg Neuts % (Manual) Lymphocytes % (Manual) Monocytes % (Manual) Eosinophils % (Manual) Nucleated RBC % Seg Neutrophils # Seg Neutrophils # Man Lymphocytes # (Manual) Monocytes # (Manual) Eosinophils # (Manual) PT INR D-Dimer Heparin Anti-Xa Level POC ABG pH ABG pH POC ABG pCO2 POC ABG pO2 209 H ABG pO2 ABG HCO3 ABG O2 Saturation ABG Base Excess ABG Hemoglobin Oxyhemoglobin Sodium Potassium Chloride Carbon Dioxide BUN Creatinine Glucose POC Glucose 145 H Lactic Acid Calcium Ionized Calcium Phosphorus Magnesium Iron TIBC Ferritin Total Bilirubin Direct Bilirubin AST ALT Alkaline Phosphatase Total Creatine Kinase 47713 H CK-MB (CK-2) Troponin T C-Reactive Protein Serum Total Protein Total Protein Albumin Efgos-0-Xcuwdxkxg Nvgov-1-Zudnrysvy PEP Interpretation Triglycerides LDL Cholesterol Direct HDL Cholesterol Free T4 PTH Intact Urine WBC (Auto) Urine Creatinine Salicylates Acetaminophen Crossmatch 03/21/19 03/21/19 03/21/19 08:29 11:43 12:00 WBC RBC Hgb Hct MCV MCH MCHC RDW Plt Count Lymph % (Auto) [place] % (Auto) Eos % (Auto) Lymph # [place] # Eos # Seg Neutrophils % Seg Neuts % (Manual) Lymphocytes % (Manual) Monocytes % (Manual) Eosinophils % (Manual) Nucleated RBC % Seg Neutrophils # Seg Neutrophils # Man Lymphocytes # (Manual) Monocytes # (Manual) Eosinophils # (Manual) PT INR D-Dimer Heparin Anti-Xa Level POC ABG pH ABG pH POC ABG pCO2 POC ABG pO2 ABG pO2 ABG HCO3 ABG O2 Saturation ABG Base Excess ABG Hemoglobin Oxyhemoglobin Sodium Potassium Chloride Carbon Dioxide BUN Creatinine Glucose POC Glucose 123 H Lactic Acid 2.60 H* 2.20 H* Calcium Ionized Calcium Phosphorus Magnesium Iron TIBC Ferritin Total Bilirubin Direct Bilirubin AST ALT Alkaline Phosphatase Total Creatine Kinase CK-MB (CK-2) Troponin T C-Reactive Protein Serum Total Protein Total Protein Albumin Ezcqi-3-Zcnwsudpc Mlcua-6-Zvrvmqtcx PEP Interpretation Triglycerides LDL Cholesterol Direct HDL Cholesterol Free T4 PTH Intact Urine WBC (Auto) Urine Creatinine Salicylates Acetaminophen Crossmatch 03/21/19 03/21/19 03/21/19 14:11 18:28 19:32 WBC RBC Hgb Hct MCV MCH MCHC RDW Plt Count Lymph % (Auto) [place] % (Auto) Eos % (Auto) Lymph # [place] # Eos # Seg Neutrophils % Seg Neuts % (Manual) Lymphocytes % (Manual) Monocytes % (Manual) Eosinophils % (Manual) Nucleated RBC % Seg Neutrophils # Seg Neutrophils # Man Lymphocytes # (Manual) Monocytes # (Manual) Eosinophils # (Manual) PT INR D-Dimer Heparin Anti-Xa Level POC ABG pH 7.293 L ABG pH POC ABG pCO2 POC ABG pO2 ABG pO2 ABG HCO3 ABG O2 Saturation ABG Base Excess ABG Hemoglobin Oxyhemoglobin Sodium Potassium Chloride Carbon Dioxide BUN Creatinine Glucose POC Glucose 153 H Lactic Acid 2.10 H* Calcium Ionized Calcium Phosphorus Magnesium Iron TIBC Ferritin Total Bilirubin Direct Bilirubin AST ALT Alkaline Phosphatase Total Creatine Kinase CK-MB (CK-2) Troponin T C-Reactive Protein Serum Total Protein Total Protein Albumin Qnduo-3-Zvckuymvl Kpjts-8-Faiqvwtor PEP Interpretation Triglycerides LDL Cholesterol Direct HDL Cholesterol Free T4 PTH Intact Urine WBC (Auto) Urine Creatinine Salicylates Acetaminophen Crossmatch 03/21/19 03/22/19 03/22/19 23:38 05:08 05:51 WBC RBC Hgb Hct MCV MCH MCHC RDW Plt Count Lymph % (Auto) [place] % (Auto) Eos % (Auto) Lymph # [place] # Eos # Seg Neutrophils % Seg Neuts % (Manual) Lymphocytes % (Manual) Monocytes % (Manual) Eosinophils % (Manual) Nucleated RBC % Seg Neutrophils # Seg Neutrophils # Man Lymphocytes # (Manual) Monocytes # (Manual) Eosinophils # (Manual) PT INR D-Dimer Heparin Anti-Xa Level POC ABG pH 7.283 L ABG pH POC ABG pCO2 POC ABG pO2 53 L ABG pO2 ABG HCO3 ABG O2 Saturation ABG Base Excess ABG Hemoglobin Oxyhemoglobin Sodium Potassium Chloride Carbon Dioxide BUN Creatinine Glucose POC Glucose 149 H 131 H Lactic Acid Calcium Ionized Calcium Phosphorus Magnesium Iron TIBC Ferritin Total Bilirubin Direct Bilirubin AST ALT Alkaline Phosphatase Total Creatine Kinase CK-MB (CK-2) Troponin T C-Reactive Protein Serum Total Protein Total Protein Albumin Aooeo-3-Pwdzbyubl Ruatg-8-Crjuojhtx PEP Interpretation Triglycerides LDL Cholesterol Direct HDL Cholesterol Free T4 PTH Intact Urine WBC (Auto) Urine Creatinine Salicylates Acetaminophen Crossmatch 03/22/19 03/22/19 03/22/19 08:00 08:00 18:19 WBC 36.7 H RBC Hgb 11.0 L Hct 33.5 L MCV MCH MCHC RDW 15.5 H Plt Count 43 L Lymph % (Auto) [place] % (Auto) Eos % (Auto) Lymph # [place] # Eos # Seg Neutrophils % Seg Neuts % (Manual) 87.0 H Lymphocytes % (Manual) 7.0 L Monocytes % (Manual) Eosinophils % (Manual) Nucleated RBC % Seg Neutrophils # Seg Neutrophils # Man 31.9 H Lymphocytes # (Manual) Monocytes # (Manual) Eosinophils # (Manual) PT INR D-Dimer Heparin Anti-Xa Level POC ABG pH ABG pH POC ABG pCO2 46.4 H POC ABG pO2 108 H ABG pO2 ABG HCO3 ABG O2 Saturation ABG Base Excess ABG Hemoglobin Oxyhemoglobin Sodium 132 L Potassium 5.6 H Chloride 89.6 L Carbon Dioxide 20 L BUN 101 H Creatinine 7.4 H Glucose 124 H POC Glucose Lactic Acid Calcium 5.2 L* Ionized Calcium Phosphorus Magnesium Iron TIBC Ferritin Total Bilirubin 2.80 H Direct Bilirubin AST 119 H ALT 86 H Alkaline Phosphatase 245 H Total Creatine Kinase CK-MB (CK-2) Troponin T C-Reactive Protein Serum Total Protein Total Protein 5.6 L Albumin 2.5 L Firvx-9-Mqvslyypk Dtfzb-4-Zcfnvsqsd PEP Interpretation Triglycerides LDL Cholesterol Direct HDL Cholesterol Free T4 PTH Intact Urine WBC (Auto) Urine Creatinine Salicylates Acetaminophen Crossmatch 03/22/19 03/23/19 03/23/19 20:37 04:49 05:28 WBC 35.9 H RBC Hgb 10.8 L Hct 33.2 L MCV MCH MCHC RDW 15.5 H Plt Count 49 L Lymph % (Auto) [place] % (Auto) Eos % (Auto) Lymph # [place] # Eos # Seg Neutrophils % Seg Neuts % (Manual) 81.0 H Lymphocytes % (Manual) 3.5 L Monocytes % (Manual) Eosinophils % (Manual) Nucleated RBC % Seg Neutrophils # Seg Neutrophils # Man 29.1 H Lymphocytes # (Manual) Monocytes # (Manual) 1.4 H Eosinophils # (Manual) PT INR D-Dimer Heparin Anti-Xa Level POC ABG pH 7.296 L ABG pH POC ABG pCO2 46.2 H POC ABG pO2 ABG pO2 ABG HCO3 ABG O2 Saturation ABG Base Excess ABG Hemoglobin Oxyhemoglobin Sodium 129 L Potassium 5.2 H Chloride 91.1 L Carbon Dioxide BUN 91 H Creatinine 6.6 H Glucose 190 H POC Glucose Lactic Acid Calcium 5.3 L* Ionized Calcium Phosphorus Magnesium Iron TIBC Ferritin Total Bilirubin 1.80 H Direct Bilirubin AST 80 H ALT 62 H Alkaline Phosphatase 209 H Total Creatine Kinase 9758 H CK-MB (CK-2) Troponin T C-Reactive Protein Serum Total Protein Total Protein 5.2 L Albumin 2.2 L Szjih-6-Mynwjjfyt Cubrd-0-Tsdcxhtzr PEP Interpretation Triglycerides LDL Cholesterol Direct HDL Cholesterol Free T4 PTH Intact Urine WBC (Auto) Urine Creatinine Salicylates Acetaminophen Crossmatch 03/23/19 03/23/19 03/23/19 05:28 05:31 11:33 WBC 29.7 H RBC 3.59 L Hgb 10.1 L Hct 31.1 L MCV MCH MCHC RDW 15.4 H Plt Count 47 L Lymph % (Auto) [place] % (Auto) Eos % (Auto) Lymph # [place] # Eos # Seg Neutrophils % Seg Neuts % (Manual) 89.0 H Lymphocytes % (Manual) 6.0 L Monocytes % (Manual) Eosinophils % (Manual) Nucleated RBC % 1.0 H Seg Neutrophils # Seg Neutrophils # Man 26.4 H Lymphocytes # (Manual) Monocytes # (Manual) Eosinophils # (Manual) PT INR D-Dimer Heparin Anti-Xa Level POC ABG pH ABG pH POC ABG pCO2 POC ABG pO2 ABG pO2 ABG HCO3 ABG O2 Saturation ABG Base Excess ABG Hemoglobin Oxyhemoglobin Sodium Potassium Chloride Carbon Dioxide BUN Creatinine Glucose POC Glucose 122 H 113 H Lactic Acid Calcium Ionized Calcium Phosphorus Magnesium Iron TIBC Ferritin Total Bilirubin Direct Bilirubin AST ALT Alkaline Phosphatase Total Creatine Kinase CK-MB (CK-2) Troponin T C-Reactive Protein Serum Total Protein Total Protein Albumin Cdtdh-9-Aditatosq Tijxj-8-Wvshndijo PEP Interpretation Triglycerides LDL Cholesterol Direct HDL Cholesterol Free T4 PTH Intact Urine WBC (Auto) Urine Creatinine Salicylates Acetaminophen Crossmatch 03/23/19 03/24/19 03/24/19 17:47 00:00 04:50 WBC 35.0 H RBC Hgb 10.4 L Hct 32.4 L MCV MCH MCHC RDW Plt Count 60 L Lymph % (Auto) [place] % (Auto) Eos % (Auto) Lymph # [place] # Eos # Seg Neutrophils % Seg Neuts % (Manual) 93.0 H Lymphocytes % (Manual) 5.0 L Monocytes % (Manual) Eosinophils % (Manual) Nucleated RBC % 7.0 H Seg Neutrophils # Seg Neutrophils # Man 32.6 H Lymphocytes # (Manual) Monocytes # (Manual) Eosinophils # (Manual) PT INR D-Dimer Heparin Anti-Xa Level POC ABG pH ABG pH POC ABG pCO2 POC ABG pO2 ABG pO2 ABG HCO3 ABG O2 Saturation ABG Base Excess ABG Hemoglobin Oxyhemoglobin Sodium Potassium Chloride Carbon Dioxide BUN Creatinine Glucose POC Glucose 111 H 108 H Lactic Acid Calcium Ionized Calcium Phosphorus Magnesium Iron TIBC Ferritin Total Bilirubin Direct Bilirubin AST ALT Alkaline Phosphatase Total Creatine Kinase CK-MB (CK-2) Troponin T C-Reactive Protein Serum Total Protein Total Protein Albumin Hzxee-7-Fnzcronpz Ffphv-2-Zaryajfvu PEP Interpretation Triglycerides LDL Cholesterol Direct HDL Cholesterol Free T4 PTH Intact Urine WBC (Auto) Urine Creatinine Salicylates Acetaminophen Crossmatch 03/24/19 03/24/19 03/24/19 04:50 05:06 12:55 WBC RBC Hgb Hct MCV MCH MCHC RDW Plt Count Lymph % (Auto) [place] % (Auto) Eos % (Auto) Lymph # [place] # Eos # Seg Neutrophils % Seg Neuts % (Manual) Lymphocytes % (Manual) Monocytes % (Manual) Eosinophils % (Manual) Nucleated RBC % Seg Neutrophils # Seg Neutrophils # Man Lymphocytes # (Manual) Monocytes # (Manual) Eosinophils # (Manual) PT INR D-Dimer Heparin Anti-Xa Level POC ABG pH ABG pH POC ABG pCO2 POC ABG pO2 ABG pO2 ABG HCO3 ABG O2 Saturation ABG Base Excess ABG Hemoglobin Oxyhemoglobin Sodium 134 L Potassium 5.1 H Chloride 95.3 L Carbon Dioxide 21 L BUN 85 H Creatinine 6.4 H Glucose 109 H POC Glucose 112 H 110 H Lactic Acid Calcium 5.8 L* Ionized Calcium Phosphorus Magnesium Iron TIBC Ferritin Total Bilirubin Direct Bilirubin AST ALT Alkaline Phosphatase Total Creatine Kinase 5747 H CK-MB (CK-2) Troponin T C-Reactive Protein Serum Total Protein Total Protein Albumin Erksx-2-Qltrgpeow Cdsad-2-Wxrdobpsu PEP Interpretation Triglycerides LDL Cholesterol Direct HDL Cholesterol Free T4 PTH Intact Urine WBC (Auto) Urine Creatinine Salicylates Acetaminophen Crossmatch 03/24/19 03/25/19 03/25/19 23:29 05:00 05:00 WBC RBC Hgb Hct MCV MCH MCHC RDW Plt Count Lymph % (Auto) [place] % (Auto) Eos % (Auto) Lymph # [place] # Eos # Seg Neutrophils % Seg Neuts % (Manual) Lymphocytes % (Manual) Monocytes % (Manual) Eosinophils % (Manual) Nucleated RBC % Seg Neutrophils # Seg Neutrophils # Man Lymphocytes # (Manual) Monocytes # (Manual) Eosinophils # (Manual) PT INR D-Dimer Heparin Anti-Xa Level POC ABG pH ABG pH POC ABG pCO2 POC ABG pO2 ABG pO2 ABG HCO3 ABG O2 Saturation ABG Base Excess ABG Hemoglobin Oxyhemoglobin Sodium 133 L Potassium Chloride 94.0 L Carbon Dioxide 21 L BUN 81 H Creatinine 6.4 H Glucose POC Glucose 109 H Lactic Acid Calcium 5.5 L* Ionized Calcium Phosphorus Magnesium Iron TIBC Ferritin Total Bilirubin Direct Bilirubin AST 80 H ALT Alkaline Phosphatase 202 H Total Creatine Kinase 3589 H CK-MB (CK-2) Troponin T C-Reactive Protein Serum Total Protein Total Protein 5.3 L Albumin 2.4 L Eoixn-5-Amxxfwxub Dsuxm-5-Cackjgafd PEP Interpretation Triglycerides LDL Cholesterol Direct HDL Cholesterol Free T4 PTH Intact 329.9 H Urine WBC (Auto) Urine Creatinine Salicylates Acetaminophen Crossmatch 03/25/19 03/25/19 03/26/19 05:00 06:30 04:30 WBC 23.3 H RBC 3.61 L Hgb 10.2 L Hct 31.2 L MCV MCH MCHC RDW Plt Count 57 L Lymph % (Auto) [place] % (Auto) Eos % (Auto) Lymph # [place] # Eos # Seg Neutrophils % Seg Neuts % (Manual) 92.0 H Lymphocytes % (Manual) 6.0 L Monocytes % (Manual) Eosinophils % (Manual) Nucleated RBC % Seg Neutrophils # Seg Neutrophils # Man 21.4 H Lymphocytes # (Manual) Monocytes # (Manual) Eosinophils # (Manual) PT INR D-Dimer Heparin Anti-Xa Level POC ABG pH ABG pH 7.326 L POC ABG pCO2 POC ABG pO2 ABG pO2 109.5 H 137.4 H ABG HCO3 18.8 L 18.6 L ABG O2 Saturation ABG Base Excess -4.4 L -6.8 L ABG Hemoglobin 10.1 L 9.9 L Oxyhemoglobin Sodium Potassium Chloride Carbon Dioxide BUN Creatinine Glucose POC Glucose Lactic Acid Calcium Ionized Calcium Phosphorus Magnesium Iron TIBC Ferritin Total Bilirubin Direct Bilirubin AST ALT Alkaline Phosphatase Total Creatine Kinase CK-MB (CK-2) Troponin T C-Reactive Protein Serum Total Protein Total Protein Albumin Jadar-4-Qyhbdwdvc Nefpk-2-Plmzngldi PEP Interpretation Triglycerides LDL Cholesterol Direct HDL Cholesterol Free T4 PTH Intact Urine WBC (Auto) Urine Creatinine Salicylates Acetaminophen Crossmatch 03/26/19 03/26/19 03/26/19 23:22 Unknown Unknown WBC 19.5 H RBC 3.44 L Hgb 9.8 L Hct 29.9 L MCV MCH MCHC RDW Plt Count 85 L Lymph % (Auto) [place] % (Auto) Eos % (Auto) Lymph # [place] # Eos # Seg Neutrophils % Seg Neuts % (Manual) 95.0 H Lymphocytes % (Manual) 3.0 L Monocytes % (Manual) Eosinophils % (Manual) Nucleated RBC % Seg Neutrophils # Seg Neutrophils # Man 18.5 H Lymphocytes # (Manual) 0.6 L Monocytes # (Manual) Eosinophils # (Manual) PT INR D-Dimer Heparin Anti-Xa Level POC ABG pH ABG pH POC ABG pCO2 POC ABG pO2 ABG pO2 ABG HCO3 ABG O2 Saturation ABG Base Excess ABG Hemoglobin Oxyhemoglobin Sodium 135 L Potassium 5.2 H D Chloride 92.2 L Carbon Dioxide 18 L BUN 109 H Creatinine 8.5 H Glucose 117 H POC Glucose 69 L Lactic Acid Calcium 4.5 L* D Ionized Calcium Phosphorus Magnesium Iron TIBC Ferritin Total Bilirubin Direct Bilirubin AST ALT Alkaline Phosphatase Total Creatine Kinase 4527 H CK-MB (CK-2) Troponin T C-Reactive Protein Serum Total Protein Total Protein Albumin [place]-1-Plfnfldjh Vukcy-6-Mucncrfth PEP Interpretation Triglycerides LDL Cholesterol Direct HDL Cholesterol Free T4 PTH Intact Urine WBC (Auto) Urine Creatinine Salicylates Acetaminophen Crossmatch 03/27/19 03/27/19 03/27/19 04:30 04:30 09:00 WBC 19.2 H RBC 3.42 L Hgb 9.9 L Hct 30.0 L MCV MCH MCHC RDW Plt Count 84 L Lymph % (Auto) [place] % (Auto) Eos % (Auto) Lymph # [place] # Eos # Seg Neutrophils % Seg Neuts % (Manual) Lymphocytes % (Manual) Monocytes % (Manual) Eosinophils % (Manual) Nucleated RBC % Seg Neutrophils # Seg Neutrophils # Man Lymphocytes # (Manual) Monocytes # (Manual) Eosinophils # (Manual) PT INR D-Dimer Heparin Anti-Xa Level POC ABG pH ABG pH POC ABG pCO2 POC ABG pO2 ABG pO2 ABG HCO3 ABG O2 Saturation ABG Base Excess ABG Hemoglobin Oxyhemoglobin Sodium 135 L Potassium Chloride 93.5 L Carbon Dioxide BUN 84 H Creatinine 7.1 H Glucose POC Glucose Lactic Acid Calcium 5.0 L* Ionized Calcium Phosphorus Magnesium Iron TIBC Ferritin Total Bilirubin Direct Bilirubin AST 78 H ALT Alkaline Phosphatase 135 H Total Creatine Kinase 4677 H CK-MB (CK-2) Troponin T C-Reactive Protein Serum Total Protein Total Protein 4.8 L Albumin 2.3 L Bnmqn-2-Nijxcfjsx Uhczm-3-Neywtaati PEP Interpretation Triglycerides 409 H LDL Cholesterol Direct HDL Cholesterol Free T4 PTH Intact Urine WBC (Auto) Urine Creatinine Salicylates Acetaminophen Crossmatch 03/27/19 03/27/19 03/27/19 12:37 14:15 14:15 WBC RBC Hgb 9.7 L Hct 29.5 L MCV MCH MCHC RDW Plt Count 87 L Lymph % (Auto) [place] % (Auto) Eos % (Auto) Lymph # [place] # Eos # Seg Neutrophils % Seg Neuts % (Manual) Lymphocytes % (Manual) Monocytes % (Manual) Eosinophils % (Manual) Nucleated RBC % Seg Neutrophils # Seg Neutrophils # Man Lymphocytes # (Manual) Monocytes # (Manual) Eosinophils # (Manual) PT 15.9 H INR 1.30 H D-Dimer Heparin Anti-Xa Level POC ABG pH ABG pH POC ABG pCO2 POC ABG pO2 ABG pO2 ABG HCO3 ABG O2 Saturation ABG Base Excess ABG Hemoglobin Oxyhemoglobin Sodium Potassium Chloride Carbon Dioxide BUN Creatinine Glucose POC Glucose 129 H Lactic Acid Calcium Ionized Calcium Phosphorus Magnesium Iron TIBC Ferritin Total Bilirubin Direct Bilirubin AST ALT Alkaline Phosphatase Total Creatine Kinase CK-MB (CK-2) Troponin T C-Reactive Protein Serum Total Protein Total Protein Albumin Ivqno-3-Pozwnzvse Pxpck-2-Ylhqqdkck PEP Interpretation Triglycerides LDL Cholesterol Direct HDL Cholesterol Free T4 PTH Intact Urine WBC (Auto) Urine Creatinine Salicylates Acetaminophen Crossmatch 03/27/19 03/27/19 03/27/19 18:00 19:22 19:23 WBC RBC Hgb Hct MCV MCH MCHC RDW Plt Count Lymph % (Auto) [place] % (Auto) Eos % (Auto) Lymph # [place] # Eos # Seg Neutrophils % Seg Neuts % (Manual) Lymphocytes % (Manual) Monocytes % (Manual) Eosinophils % (Manual) Nucleated RBC % Seg Neutrophils # Seg Neutrophils # Man Lymphocytes # (Manual) Monocytes # (Manual) Eosinophils # (Manual) PT INR D-Dimer Heparin Anti-Xa Level < 0.10 L POC ABG pH ABG pH POC ABG pCO2 POC ABG pO2 ABG pO2 ABG HCO3 ABG O2 Saturation ABG Base Excess ABG Hemoglobin Oxyhemoglobin Sodium Potassium Chloride Carbon Dioxide BUN Creatinine Glucose POC Glucose 121 H Lactic Acid Calcium Ionized Calcium Phosphorus Magnesium Iron TIBC Ferritin Total Bilirubin Direct Bilirubin AST ALT Alkaline Phosphatase Total Creatine Kinase 4517 H CK-MB (CK-2) Troponin T C-Reactive Protein Serum Total Protein Total Protein Albumin Inijm-5-Msbarmlbd Dkqgq-5-Fobbebknj PEP Interpretation Triglycerides LDL Cholesterol Direct HDL Cholesterol Free T4 PTH Intact Urine WBC (Auto) Urine Creatinine Salicylates Acetaminophen Crossmatch 03/27/19 03/27/19 03/28/19 22:10 23:52 03:49 WBC RBC Hgb Hct MCV MCH MCHC RDW Plt Count Lymph % (Auto) [place] % (Auto) Eos % (Auto) Lymph # [place] # Eos # Seg Neutrophils % Seg Neuts % (Manual) Lymphocytes % (Manual) Monocytes % (Manual) Eosinophils % (Manual) Nucleated RBC % Seg Neutrophils # Seg Neutrophils # Man Lymphocytes # (Manual) Monocytes # (Manual) Eosinophils # (Manual) PT INR D-Dimer Heparin Anti-Xa Level POC ABG pH 7.338 L ABG pH POC ABG pCO2 33.1 L POC ABG pO2 ABG pO2 ABG HCO3 ABG O2 Saturation ABG Base Excess ABG Hemoglobin Oxyhemoglobin Sodium Potassium Chloride Carbon Dioxide BUN Creatinine Glucose POC Glucose 113 H 117 H Lactic Acid Calcium Ionized Calcium Phosphorus Magnesium Iron TIBC Ferritin Total Bilirubin Direct Bilirubin AST ALT Alkaline Phosphatase Total Creatine Kinase CK-MB (CK-2) Troponin T C-Reactive Protein Serum Total Protein Total Protein Albumin Gflix-7-Cvcbwkmyd Wruqi-0-Jhmxgvhxu PEP Interpretation Triglycerides LDL Cholesterol Direct HDL Cholesterol Free T4 PTH Intact Urine WBC (Auto) Urine Creatinine Salicylates Acetaminophen Crossmatch 03/28/19 03/28/19 03/28/19 05:13 05:13 06:18 WBC RBC Hgb Hct MCV MCH MCHC RDW Plt Count Lymph % (Auto) [place] % (Auto) Eos % (Auto) Lymph # [place] # Eos # Seg Neutrophils % Seg Neuts % (Manual) Lymphocytes % (Manual) Monocytes % (Manual) Eosinophils % (Manual) Nucleated RBC % Seg Neutrophils # Seg Neutrophils # Man Lymphocytes # (Manual) Monocytes # (Manual) Eosinophils # (Manual) PT INR D-Dimer Heparin Anti-Xa Level 0.23 L POC ABG pH ABG pH POC ABG pCO2 POC ABG pO2 ABG pO2 ABG HCO3 ABG O2 Saturation ABG Base Excess ABG Hemoglobin Oxyhemoglobin Sodium 135 L Potassium 5.5 H D Chloride 95.1 L Carbon Dioxide 16 L D BUN 129 H Creatinine 9.3 H Glucose 158 H POC Glucose 202 H Lactic Acid Calcium 4.0 L* D Ionized Calcium Phosphorus 12.40 H Magnesium Iron TIBC Ferritin Total Bilirubin Direct Bilirubin AST ALT Alkaline Phosphatase Total Creatine Kinase 4266 H CK-MB (CK-2) Troponin T C-Reactive Protein Serum Total Protein Total Protein Albumin Epjcf-5-Jobtmauld Wdgul-7-Haaacqgjf PEP Interpretation Triglycerides LDL Cholesterol Direct HDL Cholesterol Free T4 PTH Intact Urine WBC (Auto) Urine Creatinine Salicylates Acetaminophen Crossmatch 03/28/19 03/28/19 03/28/19 08:25 10:00 12:00 WBC RBC Hgb 4.9 L* D Hct 15.4 L* D MCV MCH MCHC RDW Plt Count Lymph % (Auto) [place] % (Auto) Eos % (Auto) Lymph # [place] # Eos # Seg Neutrophils % Seg Neuts % (Manual) Lymphocytes % (Manual) Monocytes % (Manual) Eosinophils % (Manual) Nucleated RBC % Seg Neutrophils # Seg Neutrophils # Man Lymphocytes # (Manual) Monocytes # (Manual) Eosinophils # (Manual) PT 17.9 H INR 1.52 H D-Dimer 4845.98 H Heparin Anti-Xa Level POC ABG pH ABG pH POC ABG pCO2 POC ABG pO2 ABG pO2 ABG HCO3 ABG O2 Saturation ABG Base Excess ABG Hemoglobin Oxyhemoglobin Sodium Potassium Chloride Carbon Dioxide BUN Creatinine Glucose POC Glucose Lactic Acid Calcium Ionized Calcium Phosphorus Magnesium Iron TIBC Ferritin Total Bilirubin Direct Bilirubin AST ALT Alkaline Phosphatase Total Creatine Kinase CK-MB (CK-2) Troponin T C-Reactive Protein Serum Total Protein Total Protein Albumin Fsnqd-7-Sznpyiwhd Cmohr-1-Zzocoapvi PEP Interpretation Triglycerides LDL Cholesterol Direct HDL Cholesterol Free T4 PTH Intact Urine WBC (Auto) Urine Creatinine Salicylates Acetaminophen Crossmatch See Detail 03/28/19 03/28/1903/28/19 12:28 14:10 17:43 WBC RBC Hgb 5.9 L* Hct 18.3 L* MCV MCH MCHC RDW Plt Count Lymph % (Auto) [place] % (Auto) Eos % (Auto) Lymph # [place] # Eos # Seg Neutrophils % Seg Neuts % (Manual) Lymphocytes % (Manual) Monocytes % (Manual) Eosinophils % (Manual) Nucleated RBC % Seg Neutrophils # Seg Neutrophils # Man Lymphocytes # (Manual) Monocytes # (Manual) Eosinophils # (Manual) PT INR D-Dimer Heparin Anti-Xa Level POC ABG pH ABG pH POC ABG pCO2 POC ABG pO2 ABG pO2 ABG HCO3 ABG O2 Saturation ABG Base Excess ABG Hemoglobin Oxyhemoglobin Sodium Potassium Chloride Carbon Dioxide BUN Creatinine Glucose POC Glucose 153 H 159 H Lactic Acid Calcium Ionized Calcium Phosphorus Magnesium Iron TIBC Ferritin Total Bilirubin Direct Bilirubin AST ALT Alkaline Phosphatase Total Creatine Kinase CK-MB (CK-2) Troponin T C-Reactive Protein Serum Total Protein Total Protein Albumin Vuzjn-9-Vlvamnetw Mssvh-3-Npstctsoc PEP Interpretation Triglycerides LDL Cholesterol Direct HDL Cholesterol Free T4 PTH Intact Urine WBC (Auto) Urine Creatinine Salicylates Acetaminophen Crossmatch 03/28/19 03/28/19 03/28/19 18:10 Unknown 23:59 WBC 24.8 H RBC 3.42 L Hgb 10.2 L D Hct 31.1 L D MCV MCH MCHC RDW 15.4 H Plt Count 54 L Lymph % (Auto) [place] % (Auto) Eos % (Auto) Lymph # [place] # Eos # Seg Neutrophils % Seg Neuts % (Manual) 91.0 H Lymphocytes % (Manual) 8.0 L Monocytes % (Manual) Eosinophils % (Manual) Nucleated RBC % Seg Neutrophils # Seg Neutrophils # Man 22.6 H Lymphocytes # (Manual) Monocytes # (Manual) Eosinophils # (Manual) PT INR D-Dimer Heparin Anti-Xa Level POC ABG pH ABG pH POC ABG pCO2 POC ABG pO2 ABG pO2 ABG HCO3 ABG O2 Saturation ABG Base Excess ABG Hemoglobin Oxyhemoglobin Sodium Potassium 5.7 H Chloride Carbon Dioxide BUN Creatinine Glucose POC Glucose 107 H Lactic Acid Calcium Ionized Calcium Phosphorus Magnesium Iron TIBC Ferritin Total Bilirubin Direct Bilirubin AST ALT Alkaline Phosphatase Total Creatine Kinase CK-MB (CK-2) Troponin T C-Reactive Protein Serum Total Protein Total Protein Albumin Cbbie-6-Fzhoqpkqx Azeek-7-Gnuinvxfb PEP Interpretation Triglycerides LDL Cholesterol Direct HDL Cholesterol Free T4 PTH Intact Urine WBC (Auto) Urine Creatinine Salicylates Acetaminophen Crossmatch 03/29/19 03/29/19 03/29/19 04:29 05:46 06:22 WBC RBC Hgb 8.6 L Hct 25.7 L MCV MCH MCHC RDW Plt Count 93 L Lymph % (Auto) [place] % (Auto) Eos % (Auto) Lymph # [place] # Eos # Seg Neutrophils % Seg Neuts % (Manual) Lymphocytes % (Manual) Monocytes % (Manual) Eosinophils % (Manual) Nucleated RBC % Seg Neutrophils # Seg Neutrophils # Man Lymphocytes # (Manual) Monocytes # (Manual) Eosinophils # (Manual) PT INR D-Dimer Heparin Anti-Xa Level POC ABG pH ABG pH POC ABG pCO2 32.2 L POC ABG pO2 ABG pO2 ABG HCO3 ABG O2 Saturation ABG Base Excess ABG Hemoglobin Oxyhemoglobin Sodium Potassium Chloride Carbon Dioxide BUN Creatinine Glucose POC Glucose 113 H Lactic Acid Calcium Ionized Calcium Phosphorus Magnesium Iron TIBC Ferritin Total Bilirubin Direct Bilirubin AST ALT Alkaline Phosphatase Total Creatine Kinase CK-MB (CK-2) Troponin T C-Reactive Protein Serum Total Protein Total Protein Albumin Wngxb-1-Bexislmhe Emrrv-5-Ebmvhqfjo PEP Interpretation Triglycerides LDL Cholesterol Direct HDL Cholesterol Free T4 PTH Intact Urine WBC (Auto) Urine Creatinine Salicylates Acetaminophen Crossmatch 03/29/19 03/29/19 03/29/19 06:22 06:22 06:22 WBC 23.2 H RBC 2.91 L Hgb 8.6 L Hct 25.8 L MCV MCH MCHC RDW Plt Count 91 L Lymph % (Auto) [place] % (Auto) Eos % (Auto) Lymph # [place] # Eos # Seg Neutrophils % Seg Neuts % (Manual) Lymphocytes % (Manual) Monocytes % (Manual) Eosinophils % (Manual) Nucleated RBC % Seg Neutrophils # Seg Neutrophils # Man Lymphocytes # (Manual) Monocytes # (Manual) Eosinophils # (Manual) PT INR D-Dimer Heparin Anti-Xa Level POC ABG pH ABG pH POC ABG pCO2 POC ABG pO2 ABG pO2 ABG HCO3 ABG O2 Saturation ABG Base Excess ABG Hemoglobin Oxyhemoglobin Sodium 133 L Potassium Chloride 93.8 L Carbon Dioxide 18 L BUN 109 H Creatinine 7.4 H Glucose 124 H POC Glucose Lactic Acid Calcium 4.6 L* Ionized Calcium Phosphorus Magnesium Iron TIBC Ferritin Total Bilirubin Direct Bilirubin AST ALT Alkaline Phosphatase Total Creatine Kinase 3401 H CK-MB (CK-2) Troponin T C-Reactive Protein Serum Total Protein Total Protein Albumin Kyato-6-Mwqqnzgix Tjngs-0-Plypxjwrb PEP Interpretation Triglycerides 309 H LDL Cholesterol Direct HDL Cholesterol Free T4 PTH Intact Urine WBC (Auto) Urine Creatinine Salicylates Acetaminophen Crossmatch 03/29/19 03/29/19 03/29/19 11:48 11:48 18:24 WBC RBC Hgb 7.8 L Hct 23.2 L MCV MCH MCHC RDW Plt Count Lymph % (Auto) [place] % (Auto) Eos % (Auto) Lymph # [place] # Eos # Seg Neutrophils % Seg Neuts % (Manual) Lymphocytes % (Manual) Monocytes % (Manual) Eosinophils % (Manual) Nucleated RBC % Seg Neutrophils # Seg Neutrophils # Man Lymphocytes # (Manual) Monocytes # (Manual) Eosinophils # (Manual) PT 15.3 H INR 1.24 H D-Dimer Heparin Anti-Xa Level POC ABG pH ABG pH POC ABG pCO2 POC ABG pO2 ABG pO2 ABG HCO3 ABG O2 Saturation ABG Base Excess ABG Hemoglobin Oxyhemoglobin Sodium Potassium Chloride Carbon Dioxide BUN Creatinine Glucose POC Glucose 122 H Lactic Acid Calcium Ionized Calcium Phosphorus Magnesium Iron TIBC Ferritin Total Bilirubin Direct Bilirubin AST ALT Alkaline Phosphatase Total Creatine Kinase CK-MB (CK-2) Troponin T C-Reactive Protein Serum Total Protein Total Protein Albumin Yatsf-5-Uzwzmdezt Gspva-9-Bukcypwuo PEP Interpretation Triglycerides LDL Cholesterol Direct HDL Cholesterol Free T4 PTH Intact Urine WBC (Auto) Urine Creatinine Salicylates Acetaminophen Crossmatch 03/30/19 03/30/19 03/30/19 00:40 04:31 05:04 WBC RBC Hgb 7.6 L Hct 23.0 L MCV MCH MCHC RDW Plt Count Lymph % (Auto) [place] % (Auto) Eos % (Auto) Lymph # [place] # Eos # Seg Neutrophils % Seg Neuts % (Manual) Lymphocytes % (Manual) Monocytes % (Manual) Eosinophils % (Manual) Nucleated RBC % Seg Neutrophils # Seg Neutrophils # Man Lymphocytes # (Manual) Monocytes # (Manual) Eosinophils # (Manual) PT INR D-Dimer Heparin Anti-Xa Level POC ABG pH 7.346 L ABG pH POC ABG pCO2 POC ABG pO2 62 L ABG pO2 ABG HCO3 ABG O2 Saturation ABG Base Excess ABG Hemoglobin Oxyhemoglobin Sodium Potassium Chloride Carbon Dioxide BUN 79 H Creatinine 6.4 H Glucose POC Glucose Lactic Acid Calcium 6.1 L D Ionized Calcium Phosphorus Magnesium Iron TIBC Ferritin Total Bilirubin Direct Bilirubin AST ALT Alkaline Phosphatase Total Creatine Kinase CK-MB (CK-2) Troponin T C-Reactive Protein Serum Total Protein Total Protein Albumin Roohe-3-Wfiqvgkkd Zfexf-6-Tsfezxlpb PEP Interpretation Triglycerides LDL Cholesterol Direct HDL Cholesterol Free T4 PTH Intact Urine WBC (Auto) Urine Creatinine Salicylates Acetaminophen Crossmatch 03/30/19 03/30/19 03/30/19 08:45 12:09 22:43 WBC 14.3 H RBC 2.33 L Hgb 7.0 L 7.4 L Hct 21.0 L 22.3 L MCV MCH MCHC RDW 15.6 H Plt Count 135 L Lymph % (Auto) [place] % (Auto) Eos % (Auto) Lymph # [place] # Eos # Seg Neutrophils % Seg Neuts % (Manual) Lymphocytes % (Manual) Monocytes % (Manual) Eosinophils % (Manual) Nucleated RBC % Seg Neutrophils # Seg Neutrophils # Man Lymphocytes # (Manual) Monocytes # (Manual) Eosinophils # (Manual) PT INR D-Dimer Heparin Anti-Xa Level POC ABG pH ABG pH POC ABG pCO2 POC ABG pO2 ABG pO2 ABG HCO3 ABG O2 Saturation ABG Base Excess ABG Hemoglobin Oxyhemoglobin Sodium Potassium Chloride Carbon Dioxide BUN Creatinine Glucose POC Glucose Lactic Acid Calcium Ionized Calcium 3.7 L Phosphorus Magnesium Iron TIBC Ferritin Total Bilirubin Direct Bilirubin AST ALT Alkaline Phosphatase Total Creatine Kinase CK-MB (CK-2) Troponin T C-Reactive Protein Serum Total Protein Total Protein Albumin Evvvs-9-Bcufvewlt Epbwo-5-Efxgpvobz PEP Interpretation Triglycerides LDL Cholesterol Direct HDL Cholesterol Free T4 PTH Intact Urine WBC (Auto) Urine Creatinine Salicylates Acetaminophen Crossmatch 03/30/19 03/30/19 03/31/19 23:38 Unknown 04:44 WBC 11.5 H RBC 2.40 L Hgb 7.3 L Hct 21.9 L MCV MCH MCHC RDW 15.4 H Plt Count Lymph % (Auto) 10.6 L [place] % (Auto) Eos % (Auto) Lymph # [place] # Eos # Seg Neutrophils % 81.7 H Seg Neuts % (Manual) Lymphocytes % (Manual) Monocytes % (Manual) Eosinophils % (Manual) Nucleated RBC % Seg Neutrophils # 9.4 H Seg Neutrophils # Man Lymphocytes # (Manual) Monocytes # (Manual) Eosinophils # (Manual) PT INR D-Dimer Heparin Anti-Xa Level POC ABG pH ABG pH POC ABG pCO2 POC ABG pO2 ABG pO2 ABG HCO3 ABG O2 Saturation ABG Base Excess ABG Hemoglobin Oxyhemoglobin Sodium Potassium Chloride Carbon Dioxide BUN Creatinine Glucose POC Glucose 155 H Lactic Acid Calcium Ionized Calcium Phosphorus Magnesium Iron TIBC Ferritin Total Bilirubin Direct Bilirubin 0.4 H AST 63 H ALT Alkaline Phosphatase Total Creatine Kinase CK-MB (CK-2) Troponin T C-Reactive Protein Serum Total Protein Total Protein 4.9 L Albumin 2.2 L Mwyxf-9-Fipoxxogu Jyfws-2-Jmjjtvocm PEP Interpretation Triglycerides LDL Cholesterol Direct HDL Cholesterol Free T4 PTH Intact Urine WBC (Auto) Urine Creatinine Salicylates Acetaminophen Crossmatch 03/31/19 03/31/19 03/31/19 04:44 05:44 08:20 WBC RBC Hgb Hct MCV MCH MCHC RDW Plt Count Lymph % (Auto) [place] % (Auto) Eos % (Auto) Lymph # [place] # Eos # Seg Neutrophils % Seg Neuts % (Manual) Lymphocytes % (Manual) Monocytes % (Manual) Eosinophils % (Manual) Nucleated RBC % Seg Neutrophils # Seg Neutrophils # Man Lymphocytes # (Manual) Monocytes # (Manual) Eosinophils # (Manual) PT INR D-Dimer Heparin Anti-Xa Level POC ABG pH ABG pH POC ABG pCO2 53.5 H POC ABG pO2 62 L ABG pO2 ABG HCO3 ABG O2 Saturation ABG Base Excess ABG Hemoglobin Oxyhemoglobin Sodium 135 L Potassium Chloride 96.7 L Carbon Dioxide 19 L BUN 94 H Creatinine 7.8 H Glucose POC Glucose Lactic Acid Calcium 5.3 L* Ionized Calcium Phosphorus 8.20 H Magnesium Iron TIBC Ferritin Total Bilirubin Direct Bilirubin 0.4 H AST 60 H ALT Alkaline Phosphatase Total Creatine Kinase CK-MB (CK-2) Troponin T C-Reactive Protein Serum Total Protein Total Protein 4.8 L Albumin 2.1 L Fyikx-6-Roagquqaz Lmqsl-0-Zkkxouhnb PEP Interpretation Triglycerides LDL Cholesterol Direct HDL Cholesterol Free T4 PTH Intact Urine WBC (Auto) Urine Creatinine Salicylates Acetaminophen Crossmatch 03/31/19 04/01/19 04/01/19 22:14 04:27 04:27 WBC RBC 2.60 L Hgb 8.0 L Hct 24.1 L MCV MCH MCHC RDW 15.7 H Plt Count Lymph % (Auto) 7.9 L [place] % (Auto) Eos % (Auto) Lymph # 0.7 L [place] # Eos # Seg Neutrophils % 83.6 H Seg Neuts % (Manual) Lymphocytes % (Manual) Monocytes % (Manual) Eosinophils % (Manual) Nucleated RBC % Seg Neutrophils # Seg Neutrophils # Man Lymphocytes # (Manual) Monocytes # (Manual) Eosinophils # (Manual) PT INR D-Dimer Heparin Anti-Xa Level POC ABG pH 7.286 L ABG pH POC ABG pCO2 54.7 H POC ABG pO2 179 H ABG pO2 ABG HCO3 ABG O2 Saturation ABG Base Excess ABG Hemoglobin Oxyhemoglobin Sodium Potassium Chloride Carbon Dioxide BUN 68 H Creatinine 6.6 H Glucose POC Glucose Lactic Acid Calcium 6.5 L D Ionized Calcium Phosphorus 7.30 H Magnesium Iron TIBC Ferritin Total Bilirubin Direct Bilirubin AST ALT Alkaline Phosphatase Total Creatine Kinase 1652 H CK-MB (CK-2) Troponin T C-Reactive Protein Serum Total Protein Total Protein Albumin Kaqge-4-Ikptrteoh Rclvp-3-Iqbwxstmf PEP Interpretation Triglycerides LDL Cholesterol Direct HDL Cholesterol Free T4 PTH Intact Urine WBC (Auto) Urine Creatinine Salicylates Acetaminophen Crossmatch 04/01/19 04/01/19 04/01/19 05:14 05:37 18:37 WBC RBC Hgb Hct MCV MCH MCHC RDW Plt Count Lymph % (Auto) [place] % (Auto) Eos % (Auto) Lymph # [place] # Eos # Seg Neutrophils % Seg Neuts % (Manual) Lymphocytes % (Manual) Monocytes % (Manual) Eosinophils % (Manual) Nucleated RBC % Seg Neutrophils # Seg Neutrophils # Man Lymphocytes # (Manual) Monocytes # (Manual) Eosinophils # (Manual) PT INR D-Dimer Heparin Anti-Xa Level POC ABG pH 7.283 L ABG pH POC ABG pCO2 53.4 H POC ABG pO2 241 H ABG pO2 ABG HCO3 ABG O2 Saturation ABG Base Excess ABG Hemoglobin Oxyhemoglobin Sodium Potassium Chloride Carbon Dioxide BUN Creatinine Glucose POC Glucose 111 H 119 H Lactic Acid Calcium Ionized Calcium Phosphorus Magnesium Iron TIBC Ferritin Total Bilirubin Direct Bilirubin AST ALT Alkaline Phosphatase Total Creatine Kinase CK-MB (CK-2) Troponin T C-Reactive Protein Serum Total Protein Total Protein Albumin Qddys-1-Zcyzcenly Ylzej-3-Khbvrvhug PEP Interpretation Triglycerides LDL Cholesterol Direct HDL Cholesterol Free T4 PTH Intact Urine WBC (Auto) Urine Creatinine Salicylates Acetaminophen Crossmatch 04/01/19 04/02/19 04/02/19 21:28 04:40 05:03 WBC RBC 2.36 L Hgb 7.2 L Hct 21.9 L MCV MCH MCHC RDW 16.0 H Plt Count Lymph % (Auto) 10.8 L [place] % (Auto) Eos % (Auto) Lymph # 0.8 L [place] # Eos # Seg Neutrophils % 80.3 H Seg Neuts % (Manual) Lymphocytes % (Manual) Monocytes % (Manual) Eosinophils % (Manual) Nucleated RBC % Seg Neutrophils # Seg Neutrophils # Man Lymphocytes # (Manual) Monocytes # (Manual) Eosinophils # (Manual) PT INR D-Dimer Heparin Anti-Xa Level POC ABG pH 7.299 L 7.300 L ABG pH POC ABG pCO2 48.2 H 45.2 H POC ABG pO2 133 H 107 H ABG pO2 ABG HCO3 ABG O2 Saturation ABG Base Excess ABG Hemoglobin Oxyhemoglobin Sodium Potassium Chloride Carbon Dioxide BUN Creatinine Glucose POC Glucose Lactic Acid Calcium Ionized Calcium Phosphorus Magnesium Iron TIBC Ferritin Total Bilirubin Direct Bilirubin AST ALT Alkaline Phosphatase Total Creatine Kinase CK-MB (CK-2) Troponin T C-Reactive Protein Serum Total Protein Total Protein Albumin Ylrrr-6-Eqbccbdgz Pkyws-3-Xkiaqpfur PEP Interpretation Triglycerides LDL Cholesterol Direct HDL Cholesterol Free T4 PTH Intact Urine WBC (Auto) Urine Creatinine Salicylates Acetaminophen Crossmatch 04/02/19 04/02/19 04/02/19 05:03 05:03 12:15 WBC RBC Hgb 7.4 L Hct 22.6 L MCV MCH MCHC RDW Plt Count Lymph % (Auto) [place] % (Auto) Eos % (Auto) Lymph # [place] # Eos # Seg Neutrophils % Seg Neuts % (Manual) Lymphocytes % (Manual) Monocytes % (Manual) Eosinophils % (Manual) Nucleated RBC % Seg Neutrophils # Seg Neutrophils # Man Lymphocytes # (Manual) Monocytes # (Manual) Eosinophils # (Manual) PT INR D-Dimer Heparin Anti-Xa Level POC ABG pH ABG pH POC ABG pCO2 POC ABG pO2 ABG pO2 ABG HCO3 ABG O2 Saturation ABG Base Excess ABG Hemoglobin Oxyhemoglobin Sodium 136 L Potassium Chloride 97.8 L Carbon Dioxide 18 L BUN 82 H Creatinine 8.2 H Glucose POC Glucose Lactic Acid Calcium 6.7 L Ionized Calcium Phosphorus 7.50 H Magnesium Iron 26 L TIBC 138 L Ferritin 607.0 H Total Bilirubin Direct Bilirubin AST ALT Alkaline Phosphatase Total Creatine Kinase CK-MB (CK-2) Troponin T C-Reactive Protein Serum Total Protein Total Protein Albumin Dfkmi-9-Ujvtdyaeu Wimoc-5-Tkndmumie PEP Interpretation Triglycerides LDL Cholesterol Direct HDL Cholesterol Free T4 PTH Intact Urine WBC (Auto) Urine Creatinine Salicylates Acetaminophen Crossmatch 04/02/19 04/02/19 04/03/19 16:34 17:14 04:18 WBC RBC Hgb Hct MCV MCH MCHC RDW Plt Count Lymph % (Auto) [place] % (Auto) Eos % (Auto) Lymph # [place] # Eos # Seg Neutrophils % Seg Neuts % (Manual) Lymphocytes % (Manual) Monocytes % (Manual) Eosinophils % (Manual) Nucleated RBC % Seg Neutrophils # Seg Neutrophils # Man Lymphocytes # (Manual) Monocytes # (Manual) Eosinophils # (Manual) PT INR D-Dimer Heparin Anti-Xa Level POC ABG pH ABG pH POC ABG pCO2 POC ABG pO2 146 H ABG pO2 ABG HCO3 ABG O2 Saturation ABG Base Excess ABG Hemoglobin Oxyhemoglobin Sodium Potassium Chloride Carbon Dioxide BUN Creatinine Glucose POC Glucose 108 H Lactic Acid Calcium Ionized Calcium Phosphorus Magnesium Iron TIBC Ferritin Total Bilirubin Direct Bilirubin AST ALT Alkaline Phosphatase Total Creatine Kinase CK-MB (CK-2) Troponin T C-Reactive Protein Serum Total Protein Total Protein Albumin Oetrk-5-Ixleozwyh Pwrkh-0-Haslmxxod PEP Interpretation Triglycerides LDL Cholesterol Direct HDL Cholesterol Free T4 PTH Intact Urine WBC (Auto) Urine Creatinine Salicylates Acetaminophen Crossmatch See Detail 04/03/19 04/03/19 04/03/19 04:25 08:30 18:24 WBC RBC 2.40 L Hgb 7.3 L Hct 21.9 L MCV MCH MCHC RDW Plt Count Lymph % (Auto) [place] % (Auto) 7.7 H Eos % (Auto) Lymph # 0.9 L [place] # Eos # Seg Neutrophils % 74.6 H Seg Neuts % (Manual) Lymphocytes % (Manual) Monocytes % (Manual) Eosinophils % (Manual) Nucleated RBC % Seg Neutrophils # Seg Neutrophils # Man Lymphocytes # (Manual) Monocytes # (Manual) Eosinophils # (Manual) PT INR D-Dimer Heparin Anti-Xa Level POC ABG pH ABG pH POC ABG pCO2 POC ABG pO2 ABG pO2 ABG HCO3 ABG O2 Saturation ABG Base Excess ABG Hemoglobin Oxyhemoglobin Sodium 136 L Potassium Chloride 97.0 L Carbon Dioxide BUN 58 H Creatinine 7.3 H Glucose POC Glucose 106 H Lactic Acid Calcium 7.5 L Ionized Calcium Phosphorus 5.80 H D Magnesium Iron TIBC Ferritin Total Bilirubin Direct Bilirubin AST ALT Alkaline Phosphatase Total Creatine Kinase CK-MB (CK-2) Troponin T C-Reactive Protein Serum Total Protein Total Protein Albumin Zopiq-9-Bsqjueeki Csqjj-7-Fojunoybi PEP Interpretation Triglycerides LDL Cholesterol Direct HDL Cholesterol Free T4 PTH Intact Urine WBC (Auto) Urine Creatinine Salicylates Acetaminophen Crossmatch 04/03/19 04/04/19 04/04/19 23:43 04:47 04:47 WBC RBC 2.72 L Hgb 8.3 L Hct 24.7 L MCV MCH MCHC RDW 15.6 H Plt Count Lymph % (Auto) [place] % (Auto) 10.1 H Eos % (Auto) Lymph # 0.8 L [place] # Eos # Seg Neutrophils % 71.4 H Seg Neuts % (Manual) Lymphocytes % (Manual) Monocytes % (Manual) Eosinophils % (Manual) Nucleated RBC % Seg Neutrophils # Seg Neutrophils # Man Lymphocytes # (Manual) Monocytes # (Manual) Eosinophils # (Manual) PT INR D-Dimer Heparin Anti-Xa Level POC ABG pH ABG pH POC ABG pCO2 POC ABG pO2 ABG pO2 123.8 H ABG HCO3 ABG O2 Saturation ABG Base Excess -3.0 L ABG Hemoglobin 7.9 L Oxyhemoglobin Sodium 134 L Potassium Chloride 97.9 L Carbon Dioxide BUN 64 H Creatinine 8.1 H Glucose POC Glucose Lactic Acid Calcium 7.2 L Ionized Calcium Phosphorus Magnesium Iron TIBC Ferritin Total Bilirubin Direct Bilirubin AST ALT Alkaline Phosphatase Total Creatine Kinase CK-MB (CK-2) Troponin T C-Reactive Protein Serum Total Protein Total Protein Albumin Lttjh-9-Hvjluxymk Bfxer-6-Djswnpyxh PEP Interpretation Triglycerides LDL Cholesterol Direct HDL Cholesterol Free T4 PTH Intact Urine WBC (Auto) Urine Creatinine Salicylates Acetaminophen Crossmatch 04/04/19 04/04/19 04/04/19 06:07 13:40 18:18 WBC RBC Hgb Hct MCV MCH MCHC RDW Plt Count Lymph % (Auto) [place] % (Auto) Eos % (Auto) Lymph # [place] # Eos # Seg Neutrophils % Seg Neuts % (Manual) Lymphocytes % (Manual) Monocytes % (Manual) Eosinophils % (Manual) Nucleated RBC % Seg Neutrophils # Seg Neutrophils # Man Lymphocytes # (Manual) Monocytes # (Manual) Eosinophils # (Manual) PT INR D-Dimer Heparin Anti-Xa Level POC ABG pH ABG pH POC ABG pCO2 POC ABG pO2 ABG pO2 95.9 H ABG HCO3 ABG O2 Saturation ABG Base Excess -3.0 L ABG Hemoglobin 8.5 L Oxyhemoglobin Sodium Potassium Chloride Carbon Dioxide BUN Creatinine Glucose POC Glucose 107 H 107 H Lactic Acid Calcium Ionized Calcium Phosphorus Magnesium Iron TIBC Ferritin Total Bilirubin Direct Bilirubin AST ALT Alkaline Phosphatase Total Creatine Kinase CK-MB (CK-2) Troponin T C-Reactive Protein Serum Total Protein Total Protein Albumin Mjbig-8-Wdsstsxil Foskh-2-Isfxefmkd PEP Interpretation Triglycerides LDL Cholesterol Direct HDL Cholesterol Free T4 PTH Intact Urine WBC (Auto) Urine Creatinine Salicylates Acetaminophen Crossmatch 04/04/19 04/05/19 04/05/19 21:22 04:09 04:09 WBC RBC 2.76 L Hgb 8.4 L Hct 25.4 L MCV MCH MCHC RDW 15.8 H Plt Count 133 L Lymph % (Auto) [place] % (Auto) 9.6 H Eos % (Auto) Lymph # 0.7 L [place] # Eos # Seg Neutrophils % 72.6 H Seg Neuts % (Manual) Lymphocytes % (Manual) Monocytes % (Manual) Eosinophils % (Manual) Nucleated RBC % Seg Neutrophils # Seg Neutrophils # Man Lymphocytes # (Manual) Monocytes # (Manual) Eosinophils # (Manual) PT INR D-Dimer Heparin Anti-Xa Level POC ABG pH ABG pH POC ABG pCO2 47.2 H POC ABG pO2 137 H ABG pO2 ABG HCO3 ABG O2 Saturation ABG Base Excess ABG Hemoglobin Oxyhemoglobin Sodium 136 L Potassium Chloride Carbon Dioxide BUN 46 H Creatinine 6.7 H Glucose POC Glucose Lactic Acid Calcium 7.7 L Ionized Calcium Phosphorus Magnesium Iron TIBC Ferritin Total Bilirubin Direct Bilirubin AST ALT Alkaline Phosphatase Total Creatine Kinase CK-MB (CK-2) Troponin T C-Reactive Protein Serum Total Protein Total Protein Albumin Wtoer-5-Ktgjsoedr Imovm-2-Snwknwksi PEP Interpretation Triglycerides LDL Cholesterol Direct HDL Cholesterol Free T4 PTH Intact Urine WBC (Auto) Urine Creatinine Salicylates Acetaminophen Crossmatch 04/05/19 04/05/19 04/05/19 05:28 06:14 16:50 WBC RBC Hgb Hct MCV MCH MCHC RDW Plt Count Lymph % (Auto) [place] % (Auto) Eos % (Auto) Lymph # [place] # Eos # Seg Neutrophils % Seg Neuts % (Manual) Lymphocytes % (Manual) Monocytes % (Manual) Eosinophils % (Manual) Nucleated RBC % Seg Neutrophils # Seg Neutrophils # Man Lymphocytes # (Manual) Monocytes # (Manual) Eosinophils # (Manual) PT INR D-Dimer Heparin Anti-Xa Level POC ABG pH ABG pH POC ABG pCO2 POC ABG pO2 67 L ABG pO2 ABG HCO3 ABG O2 Saturation ABG Base Excess ABG Hemoglobin Oxyhemoglobin Sodium Potassium Chloride Carbon Dioxide BUN Creatinine Glucose POC Glucose 108 H Lactic Acid Calcium Ionized Calcium Phosphorus Magnesium Iron TIBC Ferritin Total Bilirubin Direct Bilirubin AST ALT Alkaline Phosphatase Total Creatine Kinase CK-MB (CK-2) Troponin T C-Reactive Protein Serum Total Protein Total Protein Albumin Ykiwo-9-Ciqnyikkd Ivrhb-9-Wsbmsflop PEP Interpretation Triglycerides LDL Cholesterol Direct HDL Cholesterol Free T4 PTH Intact Urine WBC (Auto) 40.0 H Urine Creatinine Salicylates Acetaminophen Crossmatch 04/05/19 04/06/19 04/06/19 17:22 00:13 04:44 WBC RBC 2.48 L Hgb 7.5 L Hct 22.9 L MCV MCH MCHC RDW 16.0 H Plt Count 107 L Lymph % (Auto) [place] % (Auto) 10.7 H Eos % (Auto) Lymph # 1.0 L [place] # Eos # Seg Neutrophils % Seg Neuts % (Manual) Lymphocytes % (Manual) Monocytes % (Manual) Eosinophils % (Manual) Nucleated RBC % Seg Neutrophils # Seg Neutrophils # Man Lymphocytes # (Manual) Monocytes # (Manual) Eosinophils # (Manual) PT INR D-Dimer Heparin Anti-Xa Level POC ABG pH ABG pH POC ABG pCO2 POC ABG pO2 ABG pO2 ABG HCO3 ABG O2 Saturation ABG Base Excess ABG Hemoglobin Oxyhemoglobin Sodium Potassium Chloride Carbon Dioxide BUN Creatinine Glucose POC Glucose 118 H 138 H Lactic Acid Calcium Ionized Calcium Phosphorus Magnesium Iron TIBC Ferritin Total Bilirubin Direct Bilirubin AST ALT Alkaline Phosphatase Total Creatine Kinase CK-MB (CK-2) Troponin T C-Reactive Protein Serum Total Protein Total Protein Albumin Wrmzo-6-Vkbkfopna Twmmm-2-Smgocsuyw PEP Interpretation Triglycerides LDL Cholesterol Direct HDL Cholesterol Free T4 PTH Intact Urine WBC (Auto) Urine Creatinine Salicylates Acetaminophen Crossmatch 04/06/19 04/06/19 04/06/19 04:44 05:20 05:23 WBC RBC Hgb Hct MCV MCH MCHC RDW Plt Count Lymph % (Auto) [place] % (Auto) Eos % (Auto) Lymph # [place] # Eos # Seg Neutrophils % Seg Neuts % (Manual) Lymphocytes % (Manual) Monocytes % (Manual) Eosinophils % (Manual) Nucleated RBC % Seg Neutrophils # Seg Neutrophils # Man Lymphocytes # (Manual) Monocytes # (Manual) Eosinophils # (Manual) PT INR D-Dimer Heparin Anti-Xa Level POC ABG pH ABG pH POC ABG pCO2 POC ABG pO2 ABG pO2 104.0 H ABG HCO3 ABG O2 Saturation ABG Base Excess -2.1 L ABG Hemoglobin 7.3 L Oxyhemoglobin Sodium Potassium Chloride Carbon Dioxide BUN 64 H Creatinine 8.2 H Glucose 103 H POC Glucose 118 H Lactic Acid Calcium 7.3 L Ionized Calcium Phosphorus Magnesium Iron TIBC Ferritin Total Bilirubin Direct Bilirubin AST ALT Alkaline Phosphatase Total Creatine Kinase CK-MB (CK-2) Troponin T C-Reactive Protein Serum Total Protein Total Protein Albumin Sfvmj-4-Qbwdmlqyk Exmeo-9-Jrzlplten PEP Interpretation Triglycerides LDL Cholesterol Direct HDL Cholesterol Free T4 PTH Intact Urine WBC (Auto) Urine Creatinine Salicylates Acetaminophen Crossmatch 04/06/19 04/07/19 04/07/19 12:02 05:40 05:40 WBC RBC 2.59 L Hgb 7.9 L Hct 23.8 L MCV MCH MCHC RDW 15.8 H Plt Count 89 L Lymph % (Auto) [place] % (Auto) 10.3 H Eos % (Auto) Lymph # 1.1 L [place] # Eos # Seg Neutrophils % Seg Neuts % (Manual) Lymphocytes % (Manual) Monocytes % (Manual) Eosinophils % (Manual) Nucleated RBC % Seg Neutrophils # Seg Neutrophils # Man Lymphocytes # (Manual) Monocytes # (Manual) Eosinophils # (Manual) PT INR D-Dimer Heparin Anti-Xa Level POC ABG pH ABG pH POC ABG pCO2 POC ABG pO2 ABG pO2 ABG HCO3 ABG O2 Saturation ABG Base Excess ABG Hemoglobin Oxyhemoglobin Sodium 136 L Potassium 3.5 L Chloride Carbon Dioxide BUN 46 H Creatinine 6.2 H Glucose POC Glucose 108 H Lactic Acid Calcium 7.9 L Ionized Calcium Phosphorus Magnesium Iron TIBC Ferritin Total Bilirubin Direct Bilirubin AST ALT Alkaline Phosphatase Total Creatine Kinase CK-MB (CK-2) Troponin T C-Reactive Protein Serum Total Protein Total Protein Albumin Qafuw-9-Odvvmxswu Hcfwi-4-Frysyszdn PEP Interpretation Triglycerides LDL Cholesterol Direct HDL Cholesterol Free T4 PTH Intact Urine WBC (Auto) Urine Creatinine Salicylates Acetaminophen Crossmatch 04/07/19 04/09/19 04/09/19 12:57 04:28 04:28 WBC RBC 2.85 L Hgb 8.7 L Hct 26.2 L MCV MCH MCHC RDW 15.6 H Plt Count Lymph % (Auto) [place] % (Auto) 10.4 H Eos % (Auto) Lymph # 1.0 L [place] # Eos # Seg Neutrophils % 73.3 H Seg Neuts % (Manual) Lymphocytes % (Manual) Monocytes % (Manual) Eosinophils % (Manual) Nucleated RBC % Seg Neutrophils # Seg Neutrophils # Man Lymphocytes # (Manual) Monocytes # (Manual) Eosinophils # (Manual) PT INR D-Dimer Heparin Anti-Xa Level POC ABG pH ABG pH POC ABG pCO2 POC ABG pO2 107 H ABG pO2 ABG HCO3 ABG O2 Saturation ABG Base Excess ABG Hemoglobin Oxyhemoglobin Sodium Potassium 3.5 L Chloride 97.8 L Carbon Dioxide BUN 62 H Creatinine 8.1 H Glucose POC Glucose Lactic Acid Calcium 8.2 L Ionized Calcium Phosphorus 5.10 H Magnesium Iron TIBC Ferritin Total Bilirubin Direct Bilirubin AST ALT Alkaline Phosphatase Total Creatine Kinase CK-MB (CK-2) Troponin T C-Reactive Protein Serum Total Protein Total Protein Albumin Sahji-2-Ujmcqbfut Krhtc-9-Tnyhsfocp PEP Interpretation Triglycerides LDL Cholesterol Direct HDL Cholesterol Free T4 PTH Intact Urine WBC (Auto) Urine Creatinine Salicylates Acetaminophen Crossmatch 04/10/19 04/11/19 04/11/19 18:15 00:25 04:16 WBC 11.5 H RBC 2.91 L Hgb 8.9 L Hct 27.6 L MCV 95 H MCH MCHC RDW 17.5 H Plt Count Lymph % (Auto) [place] % (Auto) Eos % (Auto) Lymph # [place] # Eos # Seg Neutrophils % Seg Neuts % (Manual) 71.0 H Lymphocytes % (Manual) Monocytes % (Manual) 8.0 H Eosinophils % (Manual) Nucleated RBC % Seg Neutrophils # Seg Neutrophils # Man 8.2 H Lymphocytes # (Manual) Monocytes # (Manual) 0.9 H Eosinophils # (Manual) PT INR D-Dimer Heparin Anti-Xa Level POC ABG pH ABG pH POC ABG pCO2 POC ABG pO2 ABG pO2 ABG HCO3 ABG O2 Saturation ABG Base Excess ABG Hemoglobin Oxyhemoglobin Sodium Potassium Chloride Carbon Dioxide BUN Creatinine Glucose POC Glucose 109 H 114 H Lactic Acid Calcium Ionized Calcium Phosphorus Magnesium Iron TIBC Ferritin Total Bilirubin Direct Bilirubin AST ALT Alkaline Phosphatase Total Creatine Kinase CK-MB (CK-2) Troponin T C-Reactive Protein Serum Total Protein Total Protein Albumin Uoixx-3-Npoxmrazj Xkzmz-8-Eoapyexsb PEP Interpretation Triglycerides LDL Cholesterol Direct HDL Cholesterol Free T4 PTH Intact Urine WBC (Auto) Urine Creatinine Salicylates Acetaminophen Crossmatch 04/11/19 04/11/19 04/11/19 06:47 09:21 12:15 WBC RBC Hgb Hct MCV MCH MCHC RDW Plt Count Lymph % (Auto) [place] % (Auto) Eos % (Auto) Lymph # [place] # Eos # Seg Neutrophils % Seg Neuts % (Manual) Lymphocytes % (Manual) Monocytes % (Manual) Eosinophils % (Manual) Nucleated RBC % Seg Neutrophils # Seg Neutrophils # Man Lymphocytes # (Manual) Monocytes # (Manual) Eosinophils # (Manual) PT INR D-Dimer Heparin Anti-Xa Level POC ABG pH ABG pH POC ABG pCO2 POC ABG pO2 ABG pO2 ABG HCO3 ABG O2 Saturation ABG Base Excess ABG Hemoglobin Oxyhemoglobin Sodium Potassium 3.5 L Chloride Carbon Dioxide BUN 45 H Creatinine 6.0 H Glucose 113 H POC Glucose 106 H 109 H Lactic Acid Calcium Ionized Calcium Phosphorus Magnesium Iron TIBC Ferritin Total Bilirubin Direct Bilirubin AST ALT Alkaline Phosphatase Total Creatine Kinase CK-MB (CK-2) Troponin T C-Reactive Protein Serum Total Protein Total Protein Albumin Jwzoc-9-Krpsamjjq Hfdft-5-Bulrifaee PEP Interpretation Triglycerides LDL Cholesterol Direct HDL Cholesterol Free T4 PTH Intact Urine WBC (Auto) Urine Creatinine Salicylates Acetaminophen Crossmatch 04/11/19 04/12/19 04/12/19 18:42 12:13 23:52 WBC RBC Hgb Hct MCV MCH MCHC RDW Plt Count Lymph % (Auto) [place] % (Auto) Eos % (Auto) Lymph # [place] # Eos # Seg Neutrophils % Seg Neuts % (Manual) Lymphocytes % (Manual) Monocytes % (Manual) Eosinophils % (Manual) Nucleated RBC % Seg Neutrophils # Seg Neutrophils # Man Lymphocytes # (Manual) Monocytes # (Manual) Eosinophils # (Manual) PT INR D-Dimer Heparin Anti-Xa Level POC ABG pH ABG pH POC ABG pCO2 POC ABG pO2 ABG pO2 ABG HCO3 ABG O2 Saturation ABG Base Excess ABG Hemoglobin Oxyhemoglobin Sodium Potassium Chloride Carbon Dioxide BUN Creatinine Glucose POC Glucose 107 H 115 H 124 H Lactic Acid Calcium Ionized Calcium Phosphorus Magnesium Iron TIBC Ferritin Total Bilirubin Direct Bilirubin AST ALT Alkaline Phosphatase Total Creatine Kinase CK-MB (CK-2) Troponin T C-Reactive Protein Serum Total Protein Total Protein Albumin Iunkd-5-Qxeoaiagd Yiizw-9-Zuceisexa PEP Interpretation Triglycerides LDL Cholesterol Direct HDL Cholesterol Free T4 PTH Intact Urine WBC (Auto) Urine Creatinine Salicylates Acetaminophen Crossmatch 04/13/19 04/13/19 04/13/19 05:00 05:00 05:47 WBC 11.7 H RBC 2.97 L Hgb 8.8 L Hct 27.3 L MCV MCH MCHC RDW 16.1 H Plt Count Lymph % (Auto) 9.5 L [place] % (Auto) 9.9 H Eos % (Auto) Lymph # 1.1 L [place] # 1.2 H Eos # Seg Neutrophils % 78.6 H Seg Neuts % (Manual) Lymphocytes % (Manual) Monocytes % (Manual) Eosinophils % (Manual) Nucleated RBC % Seg Neutrophils # 9.2 H Seg Neutrophils # Man Lymphocytes # (Manual) Monocytes # (Manual) Eosinophils # (Manual) PT INR D-Dimer Heparin Anti-Xa Level POC ABG pH ABG pH POC ABG pCO2 POC ABG pO2 ABG pO2 ABG HCO3 ABG O2 Saturation ABG Base Excess ABG Hemoglobin Oxyhemoglobin Sodium Potassium 3.5 L Chloride Carbon Dioxide BUN 42 H Creatinine 4.6 H Glucose 106 H POC Glucose 107 H Lactic Acid Calcium 10.6 H D Ionized Calcium Phosphorus 5.90 H Magnesium Iron TIBC Ferritin Total Bilirubin Direct Bilirubin AST ALT Alkaline Phosphatase Total Creatine Kinase CK-MB (CK-2) Troponin T C-Reactive Protein Serum Total Protein Total Protein 5.8 L Albumin 2.5 L Hytsg-2-Jxfzajnnb Sdvxq-9-Xgjwboypl PEP Interpretation Triglycerides LDL Cholesterol Direct HDL Cholesterol Free T4 PTH Intact Urine WBC (Auto) Urine Creatinine Salicylates Acetaminophen Crossmatch 04/13/19 04/14/19 04/14/19 17:32 00:00 03:55 WBC RBC Hgb Hct MCV MCH MCHC RDW Plt Count Lymph % (Auto) [place] % (Auto) Eos % (Auto) Lymph # [place] # Eos # Seg Neutrophils % Seg Neuts % (Manual) Lymphocytes % (Manual) Monocytes % (Manual) Eosinophils % (Manual) Nucleated RBC % Seg Neutrophils # Seg Neutrophils # Man Lymphocytes # (Manual) Monocytes # (Manual) Eosinophils # (Manual) PT INR D-Dimer Heparin Anti-Xa Level POC ABG pH ABG pH POC ABG pCO2 POC ABG pO2 ABG pO2 ABG HCO3 ABG O2 Saturation ABG Base Excess ABG Hemoglobin Oxyhemoglobin Sodium Potassium 3.0 L Chloride Carbon Dioxide BUN 30 H Creatinine 3.1 H Glucose POC Glucose 112 H 120 H Lactic Acid Calcium 10.8 H Ionized Calcium Phosphorus Magnesium Iron TIBC Ferritin Total Bilirubin Direct Bilirubin AST ALT Alkaline Phosphatase Total Creatine Kinase CK-MB (CK-2) Troponin T C-Reactive Protein Serum Total Protein Total Protein Albumin Cucmh-1-Ixpcgfpnw Rabjd-2-Idrsitfhq PEP Interpretation Triglycerides LDL Cholesterol Direct HDL Cholesterol Free T4 PTH Intact Urine WBC (Auto) Urine Creatinine Salicylates Acetaminophen Crossmatch 04/14/19 04/14/19 04/15/19 11:56 23:28 05:11 WBC 13.0 H RBC 2.93 L Hgb 8.6 L Hct 26.5 L MCV MCH MCHC RDW 16.5 H Plt Count Lymph % (Auto) 12.2 L [place] % (Auto) 9.1 H Eos % (Auto) Lymph # [place] # 1.2 H Eos # Seg Neutrophils % 77.6 H Seg Neuts % (Manual) Lymphocytes % (Manual) Monocytes % (Manual) Eosinophils % (Manual) Nucleated RBC % Seg Neutrophils # 10.1 H Seg Neutrophils # Man Lymphocytes # (Manual) Monocytes # (Manual) Eosinophils # (Manual) PT INR D-Dimer Heparin Anti-Xa Level POC ABG pH ABG pH POC ABG pCO2 POC ABG pO2 ABG pO2 ABG HCO3 ABG O2 Saturation ABG Base Excess ABG Hemoglobin Oxyhemoglobin Sodium Potassium Chloride Carbon Dioxide BUN Creatinine Glucose POC Glucose 109 H 112 H Lactic Acid Calcium Ionized Calcium Phosphorus Magnesium Iron TIBC Ferritin Total Bilirubin Direct Bilirubin AST ALT Alkaline Phosphatase Total Creatine Kinase CK-MB (CK-2) Troponin T C-Reactive Protein Serum Total Protein Total Protein Albumin Tlbzv-3-Aohnlmprz Ktsgo-4-Pihqybkei PEP Interpretation Triglycerides LDL Cholesterol Direct HDL Cholesterol Free T4 PTH Intact Urine WBC (Auto) Urine Creatinine Salicylates Acetaminophen Crossmatch 04/15/19 04/15/19 04/15/19 05:11 05:31 18:03 WBC RBC Hgb Hct MCV MCH MCHC RDW Plt Count Lymph % (Auto) [place] % (Auto) Eos % (Auto) Lymph # [place] # Eos # Seg Neutrophils % Seg Neuts % (Manual) Lymphocytes % (Manual) Monocytes % (Manual) Eosinophils % (Manual) Nucleated RBC % Seg Neutrophils # Seg Neutrophils # Man Lymphocytes # (Manual) Monocytes # (Manual) Eosinophils # (Manual) PT INR D-Dimer Heparin Anti-Xa Level POC ABG pH ABG pH POC ABG pCO2 POC ABG pO2 ABG pO2 ABG HCO3 ABG O2 Saturation ABG Base Excess ABG Hemoglobin Oxyhemoglobin Sodium Potassium 3.2 L Chloride Carbon Dioxide BUN 44 H Creatinine 3.6 H Glucose 106 H POC Glucose 110 H 121 H Lactic Acid Calcium 12.0 H Ionized Calcium Phosphorus 5.00 H Magnesium Iron TIBC Ferritin Total Bilirubin Direct Bilirubin AST ALT Alkaline Phosphatase Total Creatine Kinase CK-MB (CK-2) Troponin T C-Reactive Protein Serum Total Protein Total Protein Albumin Ggrqy-3-Lwilsqdij Itwmm-1-Ienczxiyo PEP Interpretation Triglycerides LDL Cholesterol Direct HDL Cholesterol Free T4 PTH Intact Urine WBC (Auto) Urine Creatinine Salicylates Acetaminophen Crossmatch 04/16/19 04/16/19 04/17/19 05:07 05:07 04:15 WBC 12.6 H RBC 3.12 L Hgb 9.0 L Hct 28.2 L MCV MCH MCHC RDW 16.6 H Plt Count Lymph % (Auto) 10.3 L [place] % (Auto) 9.8 H Eos % (Auto) Lymph # [place] # 1.2 H Eos # Seg Neutrophils % 78.2 H Seg Neuts % (Manual) Lymphocytes % (Manual) Monocytes % (Manual) Eosinophils % (Manual) Nucleated RBC % Seg Neutrophils # 9.9 H Seg Neutrophils # Man Lymphocytes # (Manual) Monocytes # (Manual) Eosinophils # (Manual) PT INR D-Dimer Heparin Anti-Xa Level POC ABG pH ABG pH POC ABG pCO2 POC ABG pO2 ABG pO2 ABG HCO3 ABG O2 Saturation ABG Base Excess ABG Hemoglobin Oxyhemoglobin Sodium 147 H 150 H Potassium 3.5 L 3.1 L Chloride Carbon Dioxide 32 H BUN 54 H 65 H Creatinine 3.8 H 4.0 H Glucose 102 H 107 H POC Glucose Lactic Acid Calcium 11.7 H 12.0 H Ionized Calcium Phosphorus 5.40 H Magnesium Iron TIBC Ferritin Total Bilirubin Direct Bilirubin AST ALT Alkaline Phosphatase Total Creatine Kinase CK-MB (CK-2) Troponin T C-Reactive Protein 7.10 H Serum Total Protein Total Protein Albumin Bmdbq-9-Ddgbuaxnb Kibyk-0-Ntdtcmzuk PEP Interpretation Triglycerides LDL Cholesterol Direct HDL Cholesterol Free T4 PTH Intact Urine WBC (Auto) Urine Creatinine Salicylates Acetaminophen Crossmatch 04/17/19 04/17/19 04/17/19 04:15 06:05 12:49 WBC 15.8 H RBC 3.32 L Hgb 9.5 L Hct 29.9 L MCV MCH MCHC RDW 16.9 H Plt Count Lymph % (Auto) 12.6 L [place] % (Auto) 11.1 H Eos % (Auto) Lymph # [place] # 1.7 H Eos # Seg Neutrophils % 74.7 H Seg Neuts % (Manual) Lymphocytes % (Manual) Monocytes % (Manual) Eosinophils % (Manual) Nucleated RBC % Seg Neutrophils # 11.8 H Seg Neutrophils # Man Lymphocytes # (Manual) Monocytes # (Manual) Eosinophils # (Manual) PT INR D-Dimer Heparin Anti-Xa Level POC ABG pH ABG pH POC ABG pCO2 POC ABG pO2 ABG pO2 ABG HCO3 ABG O2 Saturation ABG Base Excess ABG Hemoglobin Oxyhemoglobin Sodium Potassium Chloride Carbon Dioxide BUN Creatinine Glucose POC Glucose 111 H 108 H Lactic Acid Calcium Ionized Calcium Phosphorus Magnesium Iron TIBC Ferritin Total Bilirubin Direct Bilirubin AST ALT Alkaline Phosphatase Total Creatine Kinase CK-MB (CK-2) Troponin T C-Reactive Protein Serum Total Protein Total Protein Albumin Nwnct-8-Wzyarntii Pfehc-3-Womjzoaqr PEP Interpretation Triglycerides LDL Cholesterol Direct HDL Cholesterol Free T4 PTH Intact Urine WBC (Auto) Urine Creatinine Salicylates Acetaminophen Crossmatch 04/18/19 04/18/19 04/18/19 00:23 04:41 04:41 WBC 19.4 H RBC 3.03 L Hgb 8.6 L Hct 27.5 L MCV MCH MCHC 31 L RDW 16.9 H Plt Count Lymph % (Auto) [place] % (Auto) Eos % (Auto) Lymph # [place] # Eos # Seg Neutrophils % Seg Neuts % (Manual) Lymphocytes % (Manual) Monocytes % (Manual) Eosinophils % (Manual) Nucleated RBC % Seg Neutrophils # Seg Neutrophils # Man Lymphocytes # (Manual) Monocytes # (Manual) Eosinophils # (Manual) PT INR D-Dimer Heparin Anti-Xa Level POC ABG pH ABG pH POC ABG pCO2 POC ABG pO2 ABG pO2 ABG HCO3 ABG O2 Saturation ABG Base Excess ABG Hemoglobin Oxyhemoglobin Sodium 152 H Potassium 3.0 L Chloride Carbon Dioxide BUN 80 H Creatinine 4.3 H Glucose 103 H POC Glucose 115 H Lactic Acid Calcium 11.4 H Ionized Calcium Phosphorus Magnesium Iron TIBC Ferritin Total Bilirubin Direct Bilirubin AST ALT Alkaline Phosphatase Total Creatine Kinase CK-MB (CK-2) Troponin T C-Reactive Protein Serum Total Protein Total Protein Albumin Cjcbj-3-Wuiinaqrg Yvuhs-5-Thmafpcfo PEP Interpretation Triglycerides LDL Cholesterol Direct HDL Cholesterol Free T4 PTH Intact Urine WBC (Auto) Urine Creatinine Salicylates Acetaminophen Crossmatch 04/18/19 04/18/19 04/18/19 06:17 12:16 18:10 WBC RBC Hgb Hct MCV MCH MCHC RDW Plt Count Lymph % (Auto) [place] % (Auto) Eos % (Auto) Lymph # [place] # Eos # Seg Neutrophils % Seg Neuts % (Manual) Lymphocytes % (Manual) Monocytes % (Manual) Eosinophils % (Manual) Nucleated RBC % Seg Neutrophils # Seg Neutrophils # Man Lymphocytes # (Manual) Monocytes # (Manual) Eosinophils # (Manual) PT INR D-Dimer Heparin Anti-Xa Level POC ABG pH ABG pH POC ABG pCO2 POC ABG pO2 ABG pO2 ABG HCO3 ABG O2 Saturation ABG Base Excess ABG Hemoglobin Oxyhemoglobin Sodium Potassium Chloride Carbon Dioxide BUN Creatinine Glucose POC Glucose 124 H 119 H 111 H Lactic Acid Calcium Ionized Calcium Phosphorus Magnesium Iron TIBC Ferritin Total Bilirubin Direct Bilirubin AST ALT Alkaline Phosphatase Total Creatine Kinase CK-MB (CK-2) Troponin T C-Reactive Protein Serum Total Protein Total Protein Albumin Sghpw-3-Mtkowptsc Jvlbs-8-Wlmwjvoce PEP Interpretation Triglycerides LDL Cholesterol Direct HDL Cholesterol Free T4 PTH Intact Urine WBC (Auto) Urine Creatinine Salicylates Acetaminophen Crossmatch 04/19/19 04/19/19 04/20/19 03:49 05:27 09:09 WBC RBC Hgb Hct MCV MCH MCHC RDW Plt Count Lymph % (Auto) [place] % (Auto) Eos % (Auto) Lymph # [place] # Eos # Seg Neutrophils % Seg Neuts % (Manual) Lymphocytes % (Manual) Monocytes % (Manual) Eosinophils % (Manual) Nucleated RBC % Seg Neutrophils # Seg Neutrophils # Man Lymphocytes # (Manual) Monocytes # (Manual) Eosinophils # (Manual) PT INR D-Dimer Heparin Anti-Xa Level POC ABG pH ABG pH POC ABG pCO2 POC ABG pO2 ABG pO2 ABG HCO3 ABG O2 Saturation ABG Base Excess ABG Hemoglobin Oxyhemoglobin Sodium 147 H 150 H Potassium 3.3 L Chloride 108.9 H Carbon Dioxide BUN 45 H 70 H Creatinine 2.9 H 4.1 H Glucose 105 H POC Glucose 124 H Lactic Acid Calcium 10.6 H 11.6 H Ionized Calcium Phosphorus Magnesium Iron TIBC Ferritin Total Bilirubin Direct Bilirubin AST ALT Alkaline Phosphatase Total Creatine Kinase CK-MB (CK-2) Troponin T C-Reactive Protein Serum Total Protein Total Protein Albumin Xahgc-2-Iohcncvpw Dbpdv-1-Wjzkmfnry PEP Interpretation Triglycerides LDL Cholesterol Direct HDL Cholesterol Free T4 PTH Intact Urine WBC (Auto) Urine Creatinine Salicylates Acetaminophen Crossmatch 04/20/19 04/20/19 04/21/19 12:29 18:45 01:34 WBC RBC Hgb Hct MCV MCH MCHC RDW Plt Count Lymph % (Auto) [place] % (Auto) Eos % (Auto) Lymph # [place] # Eos # Seg Neutrophils % Seg Neuts % (Manual) Lymphocytes % (Manual) Monocytes % (Manual) Eosinophils % (Manual) Nucleated RBC % Seg Neutrophils # Seg Neutrophils # Man Lymphocytes # (Manual) Monocytes # (Manual) Eosinophils # (Manual) PT INR D-Dimer Heparin Anti-Xa Level POC ABG pH ABG pH POC ABG pCO2 POC ABG pO2 ABG pO2 ABG HCO3 ABG O2 Saturation ABG Base Excess ABG Hemoglobin Oxyhemoglobin Sodium Potassium Chloride Carbon Dioxide BUN 40 H Creatinine 2.6 H Glucose 104 H POC Glucose 131 H 134 H Lactic Acid Calcium 11.0 H Ionized Calcium Phosphorus Magnesium Iron TIBC Ferritin Total Bilirubin Direct Bilirubin AST ALT Alkaline Phosphatase Total Creatine Kinase CK-MB (CK-2) Troponin T C-Reactive Protein Serum Total Protein Total Protein Albumin Wbzal-4-Uqlcpuvqc Cjsvz-0-Saeyvflzw PEP Interpretation Triglycerides LDL Cholesterol Direct HDL Cholesterol Free T4 PTH Intact Urine WBC (Auto) Urine Creatinine Salicylates Acetaminophen Crossmatch 04/21/19 04/21/19 04/22/19 04:22 04:22 04:24 WBC 14.2 H 14.3 H RBC 3.02 L 3.57 L Hgb 8.7 L 10.1 L Hct 27.2 L 32.1 L MCV MCH MCHC RDW 16.7 H 17.2 H Plt Count Lymph % (Auto) [place] % (Auto) Eos % (Auto) Lymph # [place] # Eos # Seg Neutrophils % Seg Neuts % (Manual) Lymphocytes % (Manual) Monocytes % (Manual) Eosinophils % (Manual) Nucleated RBC % Seg Neutrophils # Seg Neutrophils # Man Lymphocytes # (Manual) Monocytes # (Manual) Eosinophils # (Manual) PT INR D-Dimer Heparin Anti-Xa Level POC ABG pH ABG pH POC ABG pCO2 POC ABG pO2 ABG pO2 ABG HCO3 ABG O2 Saturation ABG Base Excess ABG Hemoglobin Oxyhemoglobin Sodium Potassium Chloride Carbon Dioxide BUN Creatinine Glucose POC Glucose Lactic Acid Calcium Ionized Calcium Phosphorus Magnesium Iron TIBC Ferritin Total Bilirubin Direct Bilirubin AST ALT Alkaline Phosphatase Total Creatine Kinase CK-MB (CK-2) Troponin T C-Reactive Protein Serum Total Protein 5.7 L Total Protein Albumin 2.3 L Opdqo-8-Zblmpsyqp 0.5 H Kfbvs-6-Mjkxuanmg 1.0 H PEP Interpretation see below H Triglycerides LDL Cholesterol Direct HDL Cholesterol Free T4 PTH Intact Urine WBC (Auto) Urine Creatinine Salicylates Acetaminophen Crossmatch 04/22/19 04/22/19 04/22/19 04:24 06:37 11:57 WBC RBC Hgb Hct MCV MCH MCHC RDW Plt Count Lymph % (Auto) [place] % (Auto) Eos % (Auto) Lymph # [place] # Eos # Seg Neutrophils % Seg Neuts % (Manual) Lymphocytes % (Manual) Monocytes % (Manual) Eosinophils % (Manual) Nucleated RBC % Seg Neutrophils # Seg Neutrophils # Man Lymphocytes # (Manual) Monocytes # (Manual) Eosinophils # (Manual) PT INR D-Dimer Heparin Anti-Xa Level POC ABG pH ABG pH POC ABG pCO2 POC ABG pO2 ABG pO2 ABG HCO3 ABG O2 Saturation ABG Base Excess ABG Hemoglobin Oxyhemoglobin Sodium Potassium Chloride Carbon Dioxide BUN 54 H Creatinine 3.5 H Glucose POC Glucose 113 H 110 H Lactic Acid Calcium 11.4 H Ionized Calcium Phosphorus Magnesium Iron TIBC Ferritin Total Bilirubin Direct Bilirubin AST ALT Alkaline Phosphatase Total Creatine Kinase CK-MB (CK-2) Troponin T C-Reactive Protein Serum Total Protein Total Protein Albumin Acbmq-5-Flhivwefo Ateww-2-Kbvdfebog PEP Interpretation Triglycerides LDL Cholesterol Direct HDL Cholesterol Free T4 PTH Intact Urine WBC (Auto) Urine Creatinine Salicylates Acetaminophen Crossmatch 04/22/19 04/23/19 04/23/19 18:33 04:06 04:06 WBC 16.1 H RBC 3.36 L Hgb 9.8 L Hct 30.8 L MCV MCH MCHC RDW 17.7 H Plt Count Lymph % (Auto) 9.9 L [place] % (Auto) Eos % (Auto) Lymph # [place] # Eos # Seg Neutrophils % 84.2 H Seg Neuts % (Manual) Lymphocytes % (Manual) Monocytes % (Manual) Eosinophils % (Manual) Nucleated RBC % Seg Neutrophils # 13.6 H Seg Neutrophils # Man Lymphocytes # (Manual) Monocytes # (Manual) Eosinophils # (Manual) PT INR D-Dimer Heparin Anti-Xa Level POC ABG pH ABG pH POC ABG pCO2 POC ABG pO2 ABG pO2 ABG HCO3 ABG O2 Saturation ABG Base Excess ABG Hemoglobin Oxyhemoglobin Sodium Potassium Chloride Carbon Dioxide BUN 59 H Creatinine 3.8 H Glucose POC Glucose 120 H Lactic Acid Calcium 12.3 H* Ionized Calcium Phosphorus 5.70 H Magnesium Iron TIBC Ferritin Total Bilirubin Direct Bilirubin AST ALT Alkaline Phosphatase Total Creatine Kinase CK-MB (CK-2) Troponin T C-Reactive Protein Serum Total Protein Total Protein Albumin 3.2 L Uxxll-1-Vefcdqsxt Flnyf-2-Xboevdebd PEP Interpretation Triglycerides LDL Cholesterol Direct HDL Cholesterol Free T4 PTH Intact Urine WBC (Auto) Urine Creatinine Salicylates Acetaminophen Crossmatch 04/23/19 04/24/19 04/24/19 18:06 04:12 04:12 WBC 18.0 H RBC 3.46 L Hgb 9.8 L Hct 31.2 L MCV MCH MCHC 31 L RDW 17.5 H Plt Count Lymph % (Auto) 11.1 L [place] % (Auto) Eos % (Auto) Lymph # [place] # Eos # Seg Neutrophils % 81.9 H Seg Neuts % (Manual) Lymphocytes % (Manual) Monocytes % (Manual) Eosinophils % (Manual) Nucleated RBC % Seg Neutrophils # 14.7 H Seg Neutrophils # Man Lymphocytes # (Manual) Monocytes # (Manual) Eosinophils # (Manual) PT INR D-Dimer Heparin Anti-Xa Level POC ABG pH ABG pH POC ABG pCO2 POC ABG pO2 ABG pO2 ABG HCO3 ABG O2 Saturation ABG Base Excess ABG Hemoglobin Oxyhemoglobin Sodium Potassium Chloride Carbon Dioxide BUN 56 H Creatinine 3.6 H Glucose POC Glucose 124 H Lactic Acid Calcium 12.6 H* Ionized Calcium Phosphorus Magnesium Iron TIBC Ferritin Total Bilirubin Direct Bilirubin AST ALT Alkaline Phosphatase Total Creatine Kinase CK-MB (CK-2) Troponin T C-Reactive Protein Serum Total Protein Total Protein Albumin 3.2 L Kccxf-7-Ovattyfvz Pxfip-0-Xyigcmnnm PEP Interpretation Triglycerides LDL Cholesterol Direct HDL Cholesterol Free T4 PTH Intact Urine WBC (Auto) Urine Creatinine Salicylates Acetaminophen Crossmatch 04/24/19 04/24/19 04/25/19 06:21 11:47 05:58 WBC 18.0 H RBC 2.98 L Hgb 8.3 L Hct 26.5 L MCV MCH MCHC 31 L RDW 17.9 H Plt Count Lymph % (Auto) 10.1 L [place] % (Auto) Eos % (Auto) Lymph # [place] # 0.9 H Eos # Seg Neutrophils % 82.8 H Seg Neuts % (Manual) Lymphocytes % (Manual) Monocytes % (Manual) Eosinophils % (Manual) Nucleated RBC % Seg Neutrophils # 15.0 H Seg Neutrophils # Man Lymphocytes # (Manual) Monocytes # (Manual) Eosinophils # (Manual) PT INR D-Dimer Heparin Anti-Xa Level POC ABG pH ABG pH POC ABG pCO2 POC ABG pO2 ABG pO2 ABG HCO3 ABG O2 Saturation ABG Base Excess ABG Hemoglobin Oxyhemoglobin Sodium Potassium Chloride Carbon Dioxide BUN Creatinine Glucose POC Glucose 132 H 106 H Lactic Acid Calcium Ionized Calcium Phosphorus Magnesium Iron TIBC Ferritin Total Bilirubin Direct Bilirubin AST ALT Alkaline Phosphatase Total Creatine Kinase CK-MB (CK-2) Troponin T C-Reactive Protein Serum Total Protein Total Protein Albumin [id number] Kqofz-1-Pohikjhgh PEP Interpretation Triglycerides LDL Cholesterol Direct HDL Cholesterol Free T4 PTH Intact Urine WBC (Auto) Urine Creatinine Salicylates Acetaminophen Crossmatch 04/25/19 04/26/19 04/26/19 05:58 05:57 06:08 WBC RBC Hgb Hct MCV MCH MCHC RDW Plt Count Lymph % (Auto) [place] % (Auto) Eos % (Auto) Lymph # [place] # Eos # Seg Neutrophils % Seg Neuts % (Manual) Lymphocytes % (Manual) Monocytes % (Manual) Eosinophils % (Manual) Nucleated RBC % Seg Neutrophils # Seg Neutrophils # Man Lymphocytes # (Manual) Monocytes # (Manual) Eosinophils # (Manual) PT INR D-Dimer Heparin Anti-Xa Level POC ABG pH ABG pH POC ABG pCO2 POC ABG pO2 ABG pO2 ABG HCO3 ABG O2 Saturation ABG Base Excess ABG Hemoglobin Oxyhemoglobin Sodium Potassium 3.2 L Chloride Carbon Dioxide BUN 52 H 48 H Creatinine 3.2 H 2.9 H Glucose 108 H 112 H POC Glucose 109 H Lactic Acid Calcium 11.4 H 12.5 H* Ionized Calcium Phosphorus 5.90 H Magnesium Iron TIBC Ferritin Total Bilirubin Direct Bilirubin AST ALT Alkaline Phosphatase Total Creatine Kinase CK-MB (CK-2) Troponin T C-Reactive Protein Serum Total Protein Total Protein Albumin 3.0 L Opwwb-6-Xxqrkpjxa Vcplu-4-Yvgsrmfwl PEP Interpretation Triglycerides LDL Cholesterol Direct HDL Cholesterol Free T4 PTH Intact Urine WBC (Auto) Urine Creatinine Salicylates Acetaminophen Crossmatch 04/26/19 04/26/19 04/27/19 07:22 13:39 05:05 WBC 11.9 H RBC 3.01 L Hgb 8.6 L Hct 26.3 L MCV MCH MCHC RDW 17.6 H Plt Count Lymph % (Auto) 11.9 L [place] % (Auto) Eos % (Auto) Lymph # [place] # Eos # Seg Neutrophils % 78.3 H Seg Neuts % (Manual) Lymphocytes % (Manual) Monocytes % (Manual) Eosinophils % (Manual) Nucleated RBC % Seg Neutrophils # 9.4 H Seg Neutrophils # Man Lymphocytes # (Manual) Monocytes # (Manual) Eosinophils # (Manual) PT INR D-Dimer Heparin Anti-Xa Level POC ABG pH ABG pH POC ABG pCO2 POC ABG pO2 ABG pO2 ABG HCO3 ABG O2 Saturation ABG Base Excess ABG Hemoglobin Oxyhemoglobin Sodium Potassium Chloride Carbon Dioxide BUN 46 H Creatinine 2.8 H Glucose POC Glucose Lactic Acid Calcium > 13.0 H* 12.2 H* Ionized Calcium Phosphorus Magnesium Iron TIBC Ferritin Total Bilirubin Direct Bilirubin AST ALT Alkaline Phosphatase Total Creatine Kinase CK-MB (CK-2) Troponin T C-Reactive Protein Serum Total Protein Total Protein Albumin Ongjc-6-Cvoqnemrj Ueqqv-4-Qyaosstgj PEP Interpretation Triglycerides LDL Cholesterol Direct HDL Cholesterol Free T4 PTH Intact Urine WBC (Auto) Urine Creatinine Salicylates Acetaminophen Crossmatch 04/27/19 04/28/19 04/29/19 05:05 05:17 14:14 WBC RBC Hgb Hct MCV MCH MCHC RDW Plt Count Lymph % (Auto) [place] % (Auto) Eos % (Auto) Lymph # [place] # Eos # Seg Neutrophils % Seg Neuts % (Manual) Lymphocytes % (Manual) Monocytes % (Manual) Eosinophils % (Manual) Nucleated RBC % Seg Neutrophils # Seg Neutrophils # Man Lymphocytes # (Manual) Monocytes # (Manual) Eosinophils # (Manual) PT INR D-Dimer Heparin Anti-Xa Level POC ABG pH ABG pH POC ABG pCO2 POC ABG pO2 ABG pO2 ABG HCO3 ABG O2 Saturation ABG Base Excess ABG Hemoglobin Oxyhemoglobin Sodium 136 L Potassium 3.2 L 3.4 L Chloride Carbon Dioxide BUN 40 H 34 H 33 H Creatinine 2.5 H 2.0 H 1.9 H Glucose 113 H 107 H POC Glucose Lactic Acid Calcium 12.3 H* 12.1 H* 11.5 H Ionized Calcium Phosphorus Magnesium Iron TIBC Ferritin Total Bilirubin Direct Bilirubin AST ALT Alkaline Phosphatase Total Creatine Kinase CK-MB (CK-2) Troponin T C-Reactive Protein Serum Total Protein Total Protein 6.2 L Albumin 2.8 L Qbghu-0-Loqhtmeso Zuquy-8-Rxwzecggf PEP Interpretation Triglycerides LDL Cholesterol Direct HDL Cholesterol Free T4 PTH Intact Urine WBC (Auto) Urine Creatinine Salicylates Acetaminophen Crossmatch 04/29/19 04/29/19 04/30/19 14:14 14:14 06:47 WBC RBC Hgb Hct MCV MCH MCHC RDW Plt Count Lymph % (Auto) [place] % (Auto) Eos % (Auto) Lymph # [place] # Eos # Seg Neutrophils % Seg Neuts % (Manual) Lymphocytes % (Manual) Monocytes % (Manual) Eosinophils % (Manual) Nucleated RBC % Seg Neutrophils # Seg Neutrophils # Man Lymphocytes # (Manual) Monocytes # (Manual) Eosinophils # (Manual) PT INR D-Dimer Heparin Anti-Xa Level POC ABG pH ABG pH POC ABG pCO2 POC ABG pO2 ABG pO2 ABG HCO3 ABG O2 Saturation ABG Base Excess ABG Hemoglobin Oxyhemoglobin Sodium Potassium 3.2 L Chloride Carbon Dioxide 21 L BUN 26 H Creatinine 1.8 H Glucose POC Glucose Lactic Acid Calcium 10.8 H Ionized Calcium 7.2 H* Phosphorus Magnesium Iron TIBC Ferritin Total Bilirubin Direct Bilirubin AST ALT Alkaline Phosphatase Total Creatine Kinase CK-MB (CK-2) Troponin T C-Reactive Protein Serum Total Protein Total Protein Albumin Mmspw-4-Tfjxtnnsw Pziuo-1-Hvqsrturl PEP Interpretation Triglycerides LDL Cholesterol Direct HDL Cholesterol Free T4 PTH Intact 8.83 L Urine WBC (Auto) Urine Creatinine Salicylates Acetaminophen Crossmatch 04/30/19 05/01/19 05/01/19 12:17 06:52 06:52 WBC 15.4 H RBC 3.01 L Hgb 8.4 L Hct 26.2 L MCV MCH MCHC RDW 17.0 H Plt Count Lymph % (Auto) 8.4 L [place] % (Auto) 8.9 H Eos % (Auto) Lymph # [place] # 1.4 H Eos # 0.5 H Seg Neutrophils % 78.7 H Seg Neuts % (Manual) Lymphocytes % (Manual) Monocytes % (Manual) Eosinophils % (Manual) Nucleated RBC % Seg Neutrophils # 12.1 H Seg Neutrophils # Man Lymphocytes # (Manual) Monocytes # (Manual) Eosinophils # (Manual) PT INR D-Dimer Heparin Anti-Xa Level POC ABG pH ABG pH POC ABG pCO2 POC ABG pO2 ABG pO2 ABG HCO3 ABG O2 Saturation ABG Base Excess ABG Hemoglobin Oxyhemoglobin Sodium Potassium 3.0 L Chloride Carbon Dioxide BUN 22 H Creatinine Glucose POC Glucose 106 H Lactic Acid Calcium 11.2 H Ionized Calcium Phosphorus Magnesium Iron TIBC Ferritin Total Bilirubin Direct Bilirubin AST ALT Alkaline Phosphatase Total Creatine Kinase CK-MB (CK-2) Troponin T C-Reactive Protein Serum Total Protein Total Protein Albumin 3.0 L Mhnov-6-Ezakglssc Acool-0-Gdjqqdtlk PEP Interpretation Triglycerides LDL Cholesterol Direct HDL Cholesterol Free T4 PTH Intact Urine WBC (Auto) Urine Creatinine Salicylates Acetaminophen Crossmatch 05/01/19 05/01/19 05/02/19 06:52 18:40 05:32 WBC RBC Hgb Hct MCV MCH MCHC RDW Plt Count Lymph % (Auto) [place] % (Auto) Eos % (Auto) Lymph # [place] # Eos # Seg Neutrophils % Seg Neuts % (Manual) Lymphocytes % (Manual) Monocytes % (Manual) Eosinophils % (Manual) Nucleated RBC % Seg Neutrophils # Seg Neutrophils # Man Lymphocytes # (Manual) Monocytes # (Manual) Eosinophils # (Manual) PT INR D-Dimer Heparin Anti-Xa Level POC ABG pH ABG pH POC ABG pCO2 POC ABG pO2 ABG pO2 ABG HCO3 ABG O2 Saturation ABG Base Excess ABG Hemoglobin Oxyhemoglobin Sodium Potassium Chloride Carbon Dioxide BUN Creatinine Glucose POC Glucose 169 H 109 H Lactic Acid Calcium Ionized Calcium Phosphorus Magnesium Iron TIBC Ferritin Total Bilirubin Direct Bilirubin AST ALT Alkaline Phosphatase Total Creatine Kinase CK-MB (CK-2) Troponin T C-Reactive Protein Serum Total Protein 5.7 L Total Protein Albumin 2.5 L Vlqxo-5-Vghogxile 0.5 H Ukrsp-4-Hokxjjcwm PEP Interpretation see below H Triglycerides LDL Cholesterol Direct HDL Cholesterol Free T4 PTH Intact Urine WBC (Auto) Urine Creatinine Salicylates Acetaminophen Crossmatch 05/02/19 05/02/19 05/02/19 05:57 05:57 11:43 WBC 14.2 H RBC 2.96 L Hgb 8.3 L Hct 26.0 L MCV MCH MCHC RDW 16.8 H Plt Count Lymph % (Auto) [place] % (Auto) Eos % (Auto) Lymph # [place] # Eos # Seg Neutrophils % Seg Neuts % (Manual) Lymphocytes % (Manual) Monocytes % (Manual) Eosinophils % (Manual) Nucleated RBC % Seg Neutrophils # Seg Neutrophils # Man Lymphocytes # (Manual) Monocytes # (Manual) Eosinophils # (Manual) PT INR D-Dimer Heparin Anti-Xa Level POC ABG pH ABG pH POC ABG pCO2 POC ABG pO2 ABG pO2 ABG HCO3 ABG O2 Saturation ABG Base Excess ABG Hemoglobin Oxyhemoglobin Sodium 136 L Potassium 3.5 L Chloride Carbon Dioxide BUN 21 H Creatinine Glucose POC Glucose 108 H Lactic Acid Calcium 11.1 H Ionized Calcium Phosphorus Magnesium Iron TIBC Ferritin Total Bilirubin Direct Bilirubin AST ALT Alkaline Phosphatase Total Creatine Kinase CK-MB (CK-2) Troponin T C-Reactive Protein Serum Total Protein Total Protein Albumin Tiqxs-2-Nvcykplya Taegq-1-Gkhyuokst PEP Interpretation Triglycerides LDL Cholesterol Direct HDL Cholesterol Free T4 PTH Intact Urine WBC (Auto) Urine Creatinine Salicylates Acetaminophen Crossmatch 05/03/19 05/03/19 05/04/19 05:37 05:37 06:49 WBC 12.7 H 11.1 H RBC 3.01 L 3.07 L Hgb 8.3 L 8.6 L Hct 26.1 L 26.6 L MCV MCH MCHC RDW 16.9 H 17.3 H Plt Count Lymph % (Auto) [place] % (Auto) 9.0 H Eos % (Auto) 4.9 H Lymph # [place] # 1.0 H Eos # 0.5 H Seg Neutrophils % Seg Neuts % (Manual) Lymphocytes % (Manual) Monocytes % (Manual) Eosinophils % (Manual) Nucleated RBC % Seg Neutrophils # 7.8 H Seg Neutrophils # Man Lymphocytes # (Manual) Monocytes # (Manual) Eosinophils # (Manual) PT INR D-Dimer Heparin Anti-Xa Level POC ABG pH ABG pH POC ABG pCO2 POC ABG pO2 ABG pO2 ABG HCO3 ABG O2 Saturation ABG Base Excess ABG Hemoglobin Oxyhemoglobin Sodium 135 L Potassium 3.3 L Chloride Carbon Dioxide BUN Creatinine Glucose POC Glucose Lactic Acid Calcium 10.9 H Ionized Calcium Phosphorus Magnesium 1.50 L Iron TIBC Ferritin Total Bilirubin Direct Bilirubin AST ALT Alkaline Phosphatase Total Creatine Kinase CK-MB (CK-2) Troponin T C-Reactive Protein Serum Total Protein Total Protein Albumin Gegxe-0-Izhnaoccm Zjupp-3-Dngnqvxwh PEP Interpretation Triglycerides LDL Cholesterol Direct HDL Cholesterol Free T4 PTH Intact Urine WBC (Auto) Urine Creatinine Salicylates Acetaminophen Crossmatch 05/04/19 05/04/19 05/04/19 06:49 06:49 11:58 WBC RBC Hgb Hct MCV MCH MCHC RDW Plt Count Lymph % (Auto) [place] % (Auto) Eos % (Auto) Lymph # [place] # Eos # Seg Neutrophils % Seg Neuts % (Manual) Lymphocytes % (Manual) Monocytes % (Manual) Eosinophils % (Manual) Nucleated RBC % Seg Neutrophils # Seg Neutrophils # Man Lymphocytes # (Manual) Monocytes # (Manual) Eosinophils # (Manual) PT 15.5 H INR 1.24 H D-Dimer Heparin Anti-Xa Level POC ABG pH ABG pH POC ABG pCO2 POC ABG pO2 ABG pO2 ABG HCO3 ABG O2 Saturation ABG Base Excess ABG Hemoglobin Oxyhemoglobin Sodium Potassium Chloride Carbon Dioxide 19 L BUN Creatinine Glucose POC Glucose 111 H Lactic Acid Calcium 10.7 H Ionized Calcium Phosphorus Magnesium Iron TIBC Ferritin Total Bilirubin Direct Bilirubin AST ALT Alkaline Phosphatase Total Creatine Kinase CK-MB (CK-2) Troponin T C-Reactive Protein Serum Total Protein Total Protein Albumin Tqatw-1-Iynimvcsy Vjnwb-7-Lkjxppxzz PEP Interpretation Triglycerides LDL Cholesterol Direct HDL Cholesterol Free T4 PTH Intact Urine WBC (Auto) Urine Creatinine Salicylates Acetaminophen Crossmatch 05/05/19 05/05/19 05/07/19 06:14 06:14 05:55 WBC 11.5 H 12.0 H RBC 3.08 L 3.33 L Hgb 8.5 L 9.2 L Hct 26.5 L 28.5 L MCV MCH MCHC RDW 17.1 H 17.6 H Plt Count Lymph % (Auto) [place] % (Auto) Eos % (Auto) 8.2 H Lymph # [place] # Eos # 1.0 H Seg Neutrophils % Seg Neuts % (Manual) Lymphocytes % (Manual) Monocytes % (Manual) Eosinophils % (Manual) Nucleated RBC % Seg Neutrophils # 8.2 H Seg Neutrophils # Man Lymphocytes # (Manual) Monocytes # (Manual) Eosinophils # (Manual) PT INR D-Dimer Heparin Anti-Xa Level POC ABG pH ABG pH POC ABG pCO2 POC ABG pO2 ABG pO2 ABG HCO3 ABG O2 Saturation ABG Base Excess ABG Hemoglobin Oxyhemoglobin Sodium 136 L Potassium Chloride Carbon Dioxide 21 L BUN Creatinine Glucose POC Glucose Lactic Acid Calcium 10.3 H Ionized Calcium Phosphorus Magnesium Iron TIBC Ferritin Total Bilirubin Direct Bilirubin AST ALT Alkaline Phosphatase Total Creatine Kinase CK-MB (CK-2) Troponin T C-Reactive Protein Serum Total Protein Total Protein Albumin Hxfyx-0-Ycykinmkj Buftk-7-Ktlwpopbj PEP Interpretation Triglycerides LDL Cholesterol Direct HDL Cholesterol Free T4 PTH Intact Urine WBC (Auto) Urine Creatinine Salicylates Acetaminophen Crossmatch 05/07/19 05/08/19 05/08/19 05:55 07:27 07:27 WBC 12.5 H RBC 3.50 L Hgb 9.4 L Hct 30.4 L MCV MCH 27 L MCHC 31 L RDW 17.2 H Plt Count Lymph % (Auto) [place] % (Auto) Eos % (Auto) 10.3 H Lymph # [place] # Eos # 1.3 H Seg Neutrophils % Seg Neuts % (Manual) Lymphocytes % (Manual) Monocytes % (Manual) Eosinophils % (Manual) Nucleated RBC % Seg Neutrophils # 8.7 H Seg Neutrophils # Man Lymphocytes # (Manual) Monocytes # (Manual) Eosinophils # (Manual) PT INR D-Dimer Heparin Anti-Xa Level POC ABG pH ABG pH POC ABG pCO2 POC ABG pO2 ABG pO2 ABG HCO3 ABG O2 Saturation ABG Base Excess ABG Hemoglobin Oxyhemoglobin Sodium Potassium 3.5 L Chloride Carbon Dioxide 20 L 20 L BUN Creatinine Glucose POC Glucose Lactic Acid Calcium 10.7 H 10.7 H Ionized Calcium Phosphorus Magnesium Iron TIBC Ferritin Total Bilirubin Direct Bilirubin AST ALT Alkaline Phosphatase Total Creatine Kinase CK-MB (CK-2) Troponin T C-Reactive Protein Serum Total Protein Total Protein Albumin 3.2 L 3.4 L Zbyzx-2-Kutbmywnq Fkpwc-6-Hscusxkmc PEP Interpretation Triglycerides LDL Cholesterol Direct HDL Cholesterol Free T4 PTH Intact Urine WBC (Auto) Urine Creatinine Salicylates Acetaminophen Crossmatch 05/09/19 05/09/19 05/10/19 05:41 05:41 06:42 WBC 11.7 H RBC 3.27 L Hgb 9.2 L Hct 27.9 L MCV MCH MCHC RDW 17.8 H Plt Count Lymph % (Auto) [place] % (Auto) Eos % (Auto) 14.3 H Lymph # [place] # Eos # 1.7 H Seg Neutrophils % Seg Neuts % (Manual) Lymphocytes % (Manual) Monocytes % (Manual) Eosinophils % (Manual) Nucleated RBC % Seg Neutrophils # Seg Neutrophils # Man Lymphocytes # (Manual) Monocytes # (Manual) Eosinophils # (Manual) PT INR 1.17 H D-Dimer Heparin Anti-Xa Level POC ABG pH ABG pH POC ABG pCO2 POC ABG pO2 ABG pO2 ABG HCO3 ABG O2 Saturation ABG Base Excess ABG Hemoglobin Oxyhemoglobin Sodium 136 L Potassium Chloride Carbon Dioxide 21 L BUN Creatinine Glucose POC Glucose Lactic Acid Calcium 10.6 H Ionized Calcium Phosphorus Magnesium Iron TIBC Ferritin Total Bilirubin Direct Bilirubin AST ALT Alkaline Phosphatase Total Creatine Kinase CK-MB (CK-2) Troponin T C-Reactive Protein Serum Total Protein Total Protein Albumin 3.3 L Ohwkh-5-Gzjcpkdsh Evgho-0-Yqyzacucm PEP Interpretation Triglycerides LDL Cholesterol Direct HDL Cholesterol Free T4 PTH Intact Urine WBC (Auto) Urine Creatinine Salicylates Acetaminophen Crossmatch 05/10/19 05/11/19 05/13/19 06:42 04:40 08:32 WBC 11.8 H RBC 3.48 L Hgb 9.5 L Hct 30.0 L MCV MCH 27 L MCHC RDW 18.0 H Plt Count Lymph % (Auto) [place] % (Auto) Eos % (Auto) Lymph # [place] # Eos # Seg Neutrophils % Seg Neuts % (Manual) 73.0 H Lymphocytes % (Manual) 11.0 L Monocytes % (Manual) Eosinophils % (Manual) 12.0 H Nucleated RBC % Seg Neutrophils # Seg Neutrophils # Man 8.6 H Lymphocytes # (Manual) Monocytes # (Manual) Eosinophils # (Manual) 1.4 H PT INR D-Dimer Heparin Anti-Xa Level POC ABG pH ABG pH POC ABG pCO2 POC ABG pO2 ABG pO2 ABG HCO3 ABG O2 Saturation ABG Base Excess ABG Hemoglobin Oxyhemoglobin Sodium Potassium Chloride Carbon Dioxide 21 L 20 L BUN Creatinine Glucose POC Glucose Lactic Acid Calcium Ionized Calcium Phosphorus Magnesium Iron TIBC Ferritin Total Bilirubin Direct Bilirubin AST ALT Alkaline Phosphatase Total Creatine Kinase CK-MB (CK-2) Troponin T C-Reactive Protein Serum Total Protein Total Protein Albumin Qjwqh-4-Vcqendrpm Qnipd-4-Etriwxhux PEP Interpretation Triglycerides LDL Cholesterol Direct HDL Cholesterol Free T4 PTH Intact Urine WBC (Auto) Urine Creatinine Salicylates Acetaminophen Crossmatch 05/13/19 05/14/19 05/19/19 08:32 08:12 06:47 WBC RBC Hgb Hct MCV MCH MCHC RDW Plt Count Lymph % (Auto) [place] % (Auto) Eos % (Auto) Lymph # [place] # Eos # Seg Neutrophils % Seg Neuts % (Manual) Lymphocytes % (Manual) Monocytes % (Manual) Eosinophils % (Manual) Nucleated RBC % Seg Neutrophils # Seg Neutrophils # Man Lymphocytes # (Manual) Monocytes # (Manual) Eosinophils # (Manual) PT INR D-Dimer Heparin Anti-Xa Level POC ABG pH ABG pH POC ABG pCO2 POC ABG pO2 ABG pO2 ABG HCO3 ABG O2 Saturation ABG Base Excess ABG Hemoglobin Oxyhemoglobin Sodium Potassium Chloride Carbon Dioxide 17 L 18 L 18 L BUN Creatinine Glucose 73 L POC Glucose Lactic Acid Calcium Ionized Calcium Phosphorus Magnesium 1.60 L Iron TIBC Ferritin Total Bilirubin Direct Bilirubin AST ALT Alkaline Phosphatase Total Creatine Kinase CK-MB (CK-2) Troponin T C-Reactive Protein Serum Total Protein Total Protein Albumin 3.3 L Pzkvk-0-Pmwjywwtg Fuoub-1-Dnomyipif PEP Interpretation Triglycerides LDL Cholesterol Direct HDL Cholesterol Free T4 PTH Intact Urine WBC (Auto) Urine Creatinine Salicylates Acetaminophen Crossmatch 05/20/19 05/20/19 05/21/19 06:34 06:34 07:06 WBC RBC 3.22 L Hgb 9.0 L Hct 27.9 L MCV MCH MCHC RDW 18.0 H Plt Count Lymph % (Auto) [place] % (Auto) Eos % (Auto) Lymph # [place] # Eos # Seg Neutrophils % Seg Neuts % (Manual) Lymphocytes % (Manual) Monocytes % (Manual) Eosinophils % (Manual) 12.0 H Nucleated RBC % Seg Neutrophils # Seg Neutrophils # Man Lymphocytes # (Manual) Monocytes # (Manual) Eosinophils # (Manual) 1.1 H PT INR D-Dimer Heparin Anti-Xa Level POC ABG pH ABG pH POC ABG pCO2 POC ABG pO2 ABG pO2 ABG HCO3 ABG O2 Saturation ABG Base Excess ABG Hemoglobin Oxyhemoglobin Sodium Potassium Chloride Carbon Dioxide BUN Creatinine Glucose POC Glucose Lactic Acid Calcium Ionized Calcium Phosphorus 2.20 L 2.30 L Magnesium Iron TIBC Ferritin Total Bilirubin Direct Bilirubin AST ALT Alkaline Phosphatase Total Creatine Kinase CK-MB (CK-2) Troponin T C-Reactive Protein Serum Total Protein Total Protein Albumin Crbwy-1-Muwmpfuwp Veqoe-5-Lhrzlqexr PEP Interpretation Triglycerides LDL Cholesterol Direct HDL Cholesterol Free T4 PTH Intact Urine WBC (Auto) Urine Creatinine Salicylates Acetaminophen Crossmatch
--- NOTE | 2019-05-22 18:11 | Progress Note ---
Assessment and Plan Assessment and plan: --Critical illness myopathy, bilateral foot drop Physical therapy and occupational therapy Significantly improved from last one 2 weeks The aggressive physical therapy and occupational therapy rehabilitation --Peripheral neuropathy; continue gabapentin Supportive care --Toxic metabolic encephalopathy Multifactorial, resolved, continue supportive care --History of bilateral lower extremity DVT; Status post IVC filter placement, vascular evaluated the patient Recommend to continue IVC filter for 3 months, and then check lower extremity Doppler And removal of IVC filter. --History of severe GI bleeding requiring multiple blood transfusions Received 8 units of PRBC, most recent hemoglobin 9 --GI bleed/peptic ulcer disease; extensively evaluated by GI No anticoagulation in view of peptic ulcer severe anemia at this point --History of atrial fibrillation and resolved. Continue current beta blockers, --s/p acute hypoxic respiratory failure requiring intubation Status post extubation, nasal cannula oxygen as needed --NSTEMI: Abnormal Lexiscan, heart normal coronaries. EF 45% --Sepsis/septic shock; resolved --Acute kidney injury; resolved --Rhabdomyolysis; resolved --Thrombocytopenia; no evidence of bleeding, monitor closely. --Moderate malnutrition; nutrition supplements and supportive care --DVT prophylaxis; SCDs --Full code. -- DC planning; placement/transfer to [place] per pt and family Consults and recommendations noted and appreciated Plan of care reviewed with the patient and his nurse Plan of care reviewed with the case management History Interval history: Patient seen and examined medical records reviewed Patient complains of lower extremity weakness and pain Tolerated physical therapy today No other complaints Vital signs noted Hospitalist Physical - Constitutional Vitals: Temp Pulse Resp BP Pulse Ox 98.9 F 79 15 115/68 100 05/22/19 16:49 05/22/19 16:49 05/22/19 16:49 05/22/19 16:49 05/22/19 16:49 General appearance: Present: no acute distress, well-nourished - EENT Eyes: Present: PERRL, EOM intact - Neck Neck: Present: supple, normal ROM - Respiratory Respiratory effort: normal Respiratory: bilateral: diminished, negative: rales, rhonchi, wheezing - Cardiovascular Rhythm: regular Heart Sounds: Present: S1 & S2 - Extremities Extremities: no ischemia, No edema - Abdominal General gastrointestinal: soft, non-tender, non-distended - Integumentary Integumentary: Present: clear, warm - Psychiatric Psychiatric: appropriate mood/affect, cooperative - Neurologic Neurologic: CNII-XII intact, moves all extremities Results - Labs CBC & Chem 7: 05/20/19 06:34 05/19/19 06:47 Labs: Laboratory Last Values WBC 9.1 K/mm3 (4.5-11.0) 05/20/19 06:34 RBC 3.22 M/mm3 (3.65-5.03) L 05/20/19 06:34 Hgb 9.0 gm/dl (11.8-15.2) L 05/20/19 06:34 Hct 27.9 % (35.5-45.6) L 05/20/19 06:34 MCV 87 fl (84-94) 05/20/19 06:34 MCH 28 pg (28-32) 05/20/19 06:34 MCHC 32 % (32-34) 05/20/19 06:34 RDW 18.0 % (13.2-15.2) H 05/20/19 06:34 Plt Count 351 K/mm3 (140-440) 05/20/19 06:34 Lymph % (Auto) 17.9 % (13.4-35.0) 05/09/19 05:41 [place] % (Auto) 5.6 % (0.0-7.3) 05/09/19 05:41 Eos % (Auto) Tray Service Worker 05/20/19 06:34 Baso % (Auto) 0.7 % (0.0-1.8) 05/09/19 05:41 Lymph # 2.1 K/mm3 (1.2-5.4) 05/09/19 05:41 [place] # 0.7 K/mm3 (0.0-0.8) 05/09/19 05:41 Eos # 1.7 K/mm3 (0.0-0.4) H 05/09/19 05:41 Baso # 0.1 K/mm3 (0.0-0.1) 05/09/19 05:41 Add Manual Diff Complete 05/20/19 06:34 Total Counted 100 05/20/19 06:34 Seg Neutrophils % 61.5 % (40.0-70.0) 05/09/19 05:41 Seg Neuts % (Manual) 61.0 % (40.0-70.0) 05/20/19 06:34 Band Neutrophils % 0 % 05/20/19 06:34 Lymphocytes % (Manual) 25.0 % (13.4-35.0) 05/20/19 06:34 Reactive Lymphs % (Man) 0 % 05/20/19 06:34 Monocytes % (Manual) 2.0 % (0.0-7.3) 05/20/19 06:34 Eosinophils % (Manual) 12.0 % (0.0-4.3) H 05/20/19 06:34 Basophils % (Manual) 0 % (0.0-1.8) 05/20/19 06:34 Metamyelocytes % 0 % 05/20/19 06:34 Myelocytes % 0 % 05/20/19 06:34 Promyelocytes % 0 % 05/20/19 06:34 Blast Cells % 0 % 05/20/19 06:34 Nucleated RBC % Not Reportable 05/20/19 06:34 Seg Neutrophils # 7.2 K/mm3 (1.8-7.7) 05/09/19 05:41 Seg Neutrophils # Man 5.6 K/mm3 (1.8-7.7) 05/20/19 06:34 Band Neutrophils # 0.0 K/mm3 05/20/19 06:34 Lymphocytes # (Manual) 2.3 K/mm3 (1.2-5.4) 05/20/19 06:34 Abs React Lymphs (Man) 0.0 K/mm3 05/20/19 06:34 Monocytes # (Manual) 0.2 K/mm3 (0.0-0.8) 05/20/19 06:34 Eosinophils # (Manual) 1.1 K/mm3 (0.0-0.4) H 05/20/19 06:34 Basophils # (Manual) 0.0 K/mm3 (0.0-0.1) 05/20/19 06:34 Metamyelocytes # 0.0 K/mm3 05/20/19 06:34 Myelocytes # 0.0 K/mm3 05/20/19 06:34 Promyelocytes # 0.0 K/mm3 05/20/19 06:34 Blast Cells # 0.0 K/mm3 05/20/19 06:34 WBC Morphology Not Reportable 05/20/19 06:34 Hypersegmented Neuts Not Reportable 05/20/19 06:34 Hyposegmented Neuts Not Reportable 05/20/19 06:34 Hypogranular Neuts Not Reportable 05/20/19 06:34 Smudge Cells Not Reportable 05/20/19 06:34 Toxic Granulation Not Reportable 05/20/19 06:34 Toxic Vacuolation Not Reportable 05/20/19 06:34 Dohle Bodies Not Reportable 05/20/19 06:34 Pelger-Huet Anomaly Not Reportable 05/20/19 06:34 Joyce Rods Not Reportable 05/20/19 06:34 Platelet Estimate Consistent w auto 05/20/19 06:34 Clumped Platelets Not Reportable 05/20/19 06:34 Plt Clumps, EDTA Not Reportable 05/20/19 06:34 Large Platelets Few 05/20/19 06:34 Giant Platelets Not Reportable 05/20/19 06:34 Platelet Satelliting Not Reportable 05/20/19 06:34 Plt Morphology Comment Not Reportable 05/20/19 06:34 RBC Morphology Not Reportable 05/20/19 06:34 Dimorphic RBCs Not Reportable 05/20/19 06:34 Polychromasia Not Reportable 05/20/19 06:34 Hypochromasia Not Reportable 05/20/19 06:34 Poikilocytosis Not Reportable 05/20/19 06:34 Anisocytosis 1+ 05/20/19 06:34 Microcytosis Not Reportable 05/20/19 06:34 Macrocytosis Not Reportable 05/20/19 06:34 Spherocytes Not Reportable 05/20/19 06:34 Pappenheimer Bodies Not Reportable 05/20/19 06:34 Sickle Cells Not Reportable 05/20/19 06:34 Target Cells Not Reportable 05/20/19 06:34 Tear Drop Cells Not Reportable 05/20/19 06:34 Ovalocytes Not Reportable 05/20/19 06:34 Stomatocytes Few 03/26/19 Unknown Helmet Cells Not Reportable 05/20/19 06:34 [place] Bodies Not Reportable 05/20/19 06:34 [place] Rings Not Reportable 05/20/19 06:34 Samantha Cells Not Reportable 05/20/19 06:34 Bite Cells Not Reportable 05/20/19 06:34 Crenated Cell Not Reportable 05/20/19 06:34 Elliptocytes Few 05/20/19 06:34 Acanthocytes (Spur) Not Reportable 05/20/19 06:34 Rouleaux Not Reportable 05/20/19 06:34 Hemoglobin C Crystals Not Reportable 05/20/19 06:34 Schistocytes Not Reportable 05/20/19 06:34 Malaria parasites Not Reportable 05/20/19 06:34 Phil Bodies Not Reportable 05/20/19 06:34 Hem Pathologist Commnt No 05/20/19 06:34 PT 14.8 Sec. (12.2-14.9) 05/10/19 06:42 INR 1.17 (0.87-1.13) H 05/10/19 06:42 APTT 27.9 Sec. (24.2-36.6) 05/10/19 06:42 Fibrinogen 226 mg/dl (211-480) 03/28/19 12:00 D-Dimer 4845.98 ng/mlDDU (0-234) H 03/28/19 12:00 Heparin Anti-Xa Level 0.23 U.I./ml (0.3-0.7) L 03/28/19 05:13 POC ABG pH 7.401 (7.35-7.45) 04/07/19 12:57 ABG pH 7.388 pH Units (7.350-7.450) 04/06/19 05:20 POC ABG pCO2 41.5 (35-45) 04/07/19 12:57 ABG pCO2 38.5 mm Hg 04/06/19 05:20 POC ABG pO2 107 (80-105) H 04/07/19 12:57 ABG pO2 104.0 mm Hg (80.0-90.0) H 04/06/19 05:20 POC ABG HCO3 25.7 (22-26 mml/L) 04/07/19 12:57 ABG HCO3 22.6 mmol/L (20.0-26.0) 04/06/19 05:20 POC ABG Total CO2 27 (23-27mmol/L) 04/07/19 12:57 POC ABG O2 Sat 98 04/07/19 12:57 ABG O2 Saturation 97.8 % (95.0-99.0) 04/06/19 05:20 ABG O2 Content 10.0 (0.0-44) 04/06/19 05:20 POC ABG Base Excess 1 ((-2) - (+3)mmol/L) 04/07/19 12:57 ABG Base Excess -2.1 mmol/L (-2.0-3.0) L 04/06/19 05:20 ABG Hemoglobin 7.3 gm/dl (14.0-18.0) L 04/06/19 05:20 ABG Carboxyhemoglobin 1.7 % (0.0-5.0) 04/06/19 05:20 ABG Methemoglobin 0.6 % (0.0-1.5) 04/06/19 05:20 Oxyhemoglobin 95.5 % (95.0-99.0) 04/06/19 05:20 FiO2 30 % 04/07/19 12:57 Sodium 139 mmol/L (137-145) 05/19/19 06:47 Potassium 4.1 mmol/L (3.6-5.0) 05/19/19 06:47 Chloride 106.8 mmol/L (98-107) 05/19/19 06:47 Carbon Dioxide 18 mmol/L (22-30) L 05/19/19 06:47 Anion Gap 18 mmol/L 05/19/19 06:47 BUN 10 mg/dL (9-20) 05/19/19 06:47 Creatinine 0.8 mg/dL (0.8-1.5) 05/19/19 06:47 Estimated GFR > 60 ml/min 05/19/19 06:47 BUN/Creatinine Ratio 13 % 05/19/19 06:47 Glucose 87 mg/dL (75-100) 05/19/19 06:47 POC Glucose 86 (70-105) 05/11/19 02:24 Lactic Acid 1.90 mmol/L (0.7-2.0) 03/21/19 21:31 Calcium 8.8 mg/dL (8.4-10.2) 05/19/19 06:47 Ionized Calcium 7.2 mg/dL (4.8-5.6) H* 04/29/19 14:14 Phosphorus 2.30 mg/dL (2.5-4.5) L 05/21/19 07:06 Magnesium 1.70 mg/dL (1.7-2.3) 05/21/19 07:06 Iron 26 ug/dL (49-181) L 04/02/19 05:03 TIBC 138 mcg/dL (250-450) L 04/02/19 05:03 Ferritin 607.0 ng/mL (13.0-400.0) H 04/02/19 05:03 Total Bilirubin 0.30 mg/dL (0.1-1.2) 05/13/19 08:32 Direct Bilirubin 0.4 mg/dL (0-0.2) H 03/31/19 08:20 Indirect Bilirubin 0.1 mg/dL 03/31/19 08:20 AST 11 units/L (5-40) 05/13/19 08:32 ALT 12 units/L (7-56) 05/13/19 08:32 Alkaline Phosphatase 77 units/L (35-129) 05/13/19 08:32 Total Creatine Kinase 62 units/L (55-170) 04/07/19 05:40 CK-MB (CK-2) 54.3 ng/mL (0.0-4.0) H 03/17/19 07:16 CK-MB (CK-2) Rel Index 0.0 (0-4) 03/17/19 07:16 Troponin T 0.058 ng/mL (0.00-0.029) H 03/17/19 07:16 C-Reactive Protein 7.10 mg/dL (0.00-1.30) H 04/17/19 04:15 Serum Total Protein 5.7 g/dL (6.1-8.1) L 05/01/19 06:52 Total Protein 6.9 g/dL (6.3-8.2) 05/13/19 08:32 Albumin 3.3 g/dL (3.9-5) L 05/13/19 08:32 Albumin/Globulin Ratio 0.9 % 05/13/19 08:32 [place]-3-Tsqedeumh 0.5 g/dL (0.2-0.3) H 05/01/19 06:52 Nu[place]u-9-Qrzzhnduo 0.9 g/dL (0.5-0.9) 05/01/19 06:52 Beta Globulins 0.4 g/dL (0.2-0.5) 05/01/19 06:52 Gamma Globulins 1.0 g/dL (0.8-1.7) 05/01/19 06:52 Abnorm Protein Band 1 see below 05/01/19 06:52 PEP Interpretation see below H 05/01/19 06:52 Triglycerides 309 mg/dL (2-149) H 03/29/19 06:22 Cholesterol 88 mg/dL (50-199) 03/16/19 22:32 LDL Cholesterol Direct 10 mg/dL (50-130) L 03/16/19 22:32 HDL Cholesterol 7 mg/dL (40-59) L 03/16/19 22:32 Cholesterol/HDL Ratio 12.57 % 03/16/19 22:32 Vitamin B12 903.0 pg/mL (211-911) 04/02/19 05:03 25-OH Vitamin D Total See scanned result 04/29/19 14:14 25-Hydroxy Vitamin D2 <4 ng/mL 04/29/19 14:14 1,25 Dihydroxy Vit D2 <8 pg/mL 04/29/19 14:14 25-Hydroxy Vitamin D3 11 ng/mL 04/29/19 14:14 1,25 Dihydroxy Vit D3 <8 pg/mL 04/29/19 14:14 Folate 8.05 ng/mL (7.3-26.0) 04/02/19 05:03 Procalcitonin 25.42 ng/mL (<0.15) 03/27/19 19:21 TSH 2.200 mlU/mL (0.270-4.200) 03/16/19 17:05 Free T4 0.72 ng/dL (0.76-1.46) L 03/16/19 17:05 PTH Intact 8.83 pg/mL (15-65) L 04/29/19 14:14 Urine Color Yellow (Yellow) 04/15/19 22:11 Urine Turbidity Clear (Clear) 04/15/19 22:11 Urine pH 6.0 (5.0-7.0) 04/15/19 22:11 Ur Specific [place] 1.010 (1.003-1.030) 04/15/19 22:11 Urine Protein 30 mg/dl mg/dL (Negative) 04/15/19 22:11 Urine Glucose (UA) Neg mg/dL (Negative) 04/15/19 22:11 Urine Ketones Neg mg/dL (Negative) 04/15/19 22:11 Urine Blood Mod (Negative) 04/15/19 22:11 Urine Nitrite Neg (Negative) 04/15/19 22:11 Urine Bilirubin Neg (Negative) 04/15/19 22:11 Urine Urobilinogen < 2.0 mg/dL (<2.0) 04/15/19 22:11 Ur Leukocyte Esterase Neg (Negative) 04/15/19 22:11 Urine WBC (Auto) 4.0 /HPF (0.0-6.0) 04/15/19 22:11 Urine RBC (Auto) 2.0 /HPF (0.0-6.0) 04/15/19 22:11 U Epithel Cells (Auto) < 1.0 /HPF (0-13.0) 04/15/19 22:11 Amorphous Crystals 1+ 04/05/19 16:50 Urine Mucus Few /HPF 03/17/19 16:05 Urine Sperm 2+ /HPF (WARP DRAWER) 03/17/19 16:05 Urine Eosinophils None seen (None Seen) 03/17/19 16:05 Ur Random Creatinine See scanned result 05/01/19 06:15 U Random Total Protein See scanned result 05/01/19 06:15 Urine Creatinine 106.6 mg/dL (0.1-20.0) H 03/17/19 16:05 Protein/Creatinin Ratio See scanned result 05/01/19 06:15 Urine Sodium 95 mmol/L 03/17/19 16:05 U Abnormal Prot Band 1 See scanned result 05/01/19 06:15 U Abnormal Prot Band 2 See scanned result 05/01/19 06:15 U Abnormal Prot Band 3 See scanned result 05/01/19 06:15 Vancomycin Trough 11.5 ug/mL (5.0-20.0) 03/18/19 13:19 Random Vancomycin 10.8 ug/mL (0-40.0) 04/14/19 03:55 Salicylates < 0.3 mg/dL (2.8-20.0) L 03/16/19 17:05 Urine Opiates Screen Presumptive negative 03/17/19 16:05 Urine Methadone Screen Presumptive negative 03/17/19 16:05 Acetaminophen < 5.0 ug/mL (10.0-30.0) L 03/16/19 17:05 Ur Barbiturates Screen Presumptive negative 03/17/19 16:05 Ur Phencyclidine Scrn Presumptive negative 03/17/19 16:05 Ur Amphetamines Screen Presumptive negative 03/17/19 16:05 U Benzodiazepines Scrn Presumptive positive 03/17/19 16:05 Urine Cocaine Screen Presumptive negative 03/17/19 16:05 U Marijuana (THC) Screen Presumptive negative 03/17/19 16:05 Drugs of Abuse Note Disclamer 03/17/19 16:05 Plasma/Serum Alcohol < 0.01 % (0-0.07) 03/16/19 17:05 Immunofix Electrophor see below 05/01/19 06:52 LANDY Screen Negative (Negative) 04/17/19 04:15 Proteinase 3 (PR3) Ab <1.0 AI (<1.0) 04/21/19 04:22 Myeloperoxidase Ab <1.0 AI (<1.0) 04/21/19 04:22 Glomerular Base Mem IgG See scanned result 04/21/19 04:22 Complement C3 150 mg/dL (82-185) 04/17/19 04:15 Complement C4 37 mg/dL (15-53) 04/17/19 04:15 Hepatitis A IgM Ab Non-reactive (NonReactive) 04/18/19 10:02 Hep Bs Antigen Non-reactive (Negative) 04/18/19 10:02 Hep B Core IgM Ab Non-reactive (NonReactive) 04/18/19 10:02 Hepatitis C Antibody Non-reactive (NonReactive) 04/18/19 10:02 HIV 1&2 Antibody Rapid Non react (Non React) 03/17/19 11:52 HIV P24 Antigen Non react (Non React) 03/17/19 11:52 Influenza A (Rapid) Negative (Negative) 03/17/19 17:00 Influenza B (Rapid) Negative (Negative) 03/17/19 17:00 Group A Strep Rapid Negative (Negative) 03/17/19 17:00 Miscellaneous Test Flexitest 1 03/21/19 12:00 Blood Type A POSITIVE 04/02/19 16:34 Antibody Screen Negative 04/02/19 16:34 Crossmatch See Detail 04/02/19 16:34 Active Medications - Current Medications Current Medications: Generic Name Dose Route Start Last Admin Trade Name Freq PRN Reason Stop Dose Admin Acetaminophen 650 mg 04/02/19 23:26 05/08/19 21:01 Tylenol PO 650 mg Q4H PRN Administration Pain, Mild (1-3),temp>100.5 Acetaminophen/Hydrocodone Bitart 1 each 05/02/19 11:50 05/22/19 12:39 [place] 5/325 PO 1 each Q6H PRN Administration Pain, Moderate (4-6) Al Hydrox/Mg Hydrox/Simethicone 15 ml 04/30/19 15:15 04/30/19 15:53 Alum-Mag Hydrox-Simeth 185-518-73vb/5ml PO 15 ml Q4H PRN Administration Indigestion Albuterol 2.5 mg 03/29/19 13:08 Proventil IH Q4HRT PRN Shortness Of Breath Lipase/Protease/Amylase 1 each 04/20/19 13:17 Pancrekarly [place] 10,500 Unit FEEDTUBE PRN PRN For Clogged Feeding Tube Bacitracin 1 applic 04/17/19 08:00 Antibiotic Oint TP Q4H PRN upper lip sore/open Dextrose 50 gm 04/17/19 08:00 D50w (25gm) Vial IV Q1H PRN Hypoglycemia Gabapentin 300 mg 05/17/19 14:40 05/22/19 13:41 Gabapentin PO 300 mg Q8HR PAOLO Administration Hydrophilic Ointment 1 applic 03/16/19 15:50 04/19/19 18:24 Vaseline Lip Therapy TP 1 applic Q2HR PRN Administration Dry Lips Sodium Chloride 500 mls @ 50 mls/hr 05/10/19 08:00 05/11/19 06:55 Nacl 0.9% 500 Ml IV 50 mls/hr DIRECT PAOLO Administration Melatonin 5 mg 04/26/19 21:00 05/20/19 22:10 Melatonin PO 5 mg QHS PRN Administration Sleep Metoprolol Succinate 50 mg 05/10/19 10:00 05/22/19 11:02 Metoprolol Xl PO 50 mg QDAY PAOLO Administration Multi-Ingred Cream/Lotion/Oil/Oint 1 applic 03/16/19 15:50 03/19/19 20:10 Artificial Tears Ophth Oint OU 1 applic Q4HR PRN Administration Dry Eye(s) Pantoprazole Sodium 40 mg 05/07/19 22:00 05/22/19 11:02 Protonix PO 40 mg BID PAOLO Administration Potassium Phos/Sodium Phos 1 each 05/21/19 10:00 05/22/19 11:02 Phos-Nak PO 1 each Q12HR PAOLO Administration Simple Syrup 15 ml 04/20/19 13:17 Simple Syrup FEEDTUBE PRN PRN Hypoglycemia Simple Syrup 30 ml 04/20/19 13:29 05/01/19 17:57 Simple Syrup FEEDTUBE 30 ml PRN PRN Administration Hypoglycemia Sodium Bicarbonate 325 mg 04/20/19 13:17 04/27/19 11:03 Sodium Bicarbonate FEEDTUBE 325 mg PRN PRN Administration For Clogged Feeding Tube Nutrition/Malnutrition Assess - Dietary Evaluation Nutrition/Malnutrition Findings: Nutrition Notes Start: 03/17/19 14:22 Freq: Status: Active Protocol: Document 05/18/19 11:01 AIYANA (Rec: 05/18/19 11:46 AIYANA [id number]) Co-Sign 05/18/19 11:01 LP Nutrition Notes Initial or Follow up Reassessment Current Diagnosis Sepsis Other Pertinent Diagnosis GIB, afib Current Diet Regular + Ensure Clear 2 times daily Labs/Tests Reviewed Pertinent Medications Reviewed Height 6 ft Weight 89.2 kg [place] Body Weight (kg) 80.90 BMI 26.6 Weight change and time frame Re-weighed pt. Possible inaccurate bed scale. Subjective/Other Information F/U for ONS and PO intakes. Pt stated his appetite is good. Eating an average 50% of meals due to not liking some meals. Pt stated he hasn't been getting ensure clear because they are out of them, but when he gets them he drinks them. Percent of energy/protein needs met: 57%/48% Burn Absent Trauma Absent Minimum of two criteria No #1 Nutrition Diagnosis Inadequate oral intake As Evidenced by Signs and Symptoms Pt meeting 57%/48% of energy and protein needs. Diagnosis Progress(for reassessment Worsened documentation) Is patient on ventilator? No Is Patient Ambulatory and/or Out of Bed Yes REE-([place]-St. Jeor-ambulatory/OOB) [ 2359.500 NUTR.[id number]] Kcal/Kg value to use for calculation 23 Approximate Energy Requirements Using 2052 kcal/Kg Calculation Used for Recommendations Kcal/kg Additional Notes Protein Needs: 91-114g (0.8-1g /kg 114kg adjBW) Fluid needs 1ml/kcal Calorie recommendation adjusted to meet needs for previously recorded wt. Nutrition Intervention Change Diet Order: Continue current Add Supplement/Snack (indicate name/kcal Ensure Clear BID /protein ) Provides kCal: 480 Provides Protein (gm) 16 Goal #1 Continue to meet at least 75% of kcal/PRO needs via PO and ONS intakes Anticipated Discharge Needs: Regular diet Follow-Up By: 05/23/19 Additional Comments Follow for PO and ONS intakes
[2019-05-22] MEDS: MELATONIN 5 MG TAB PO PRN (21:18)
[2019-05-22] MEDS: ACETAMINOPHEN 325 MG TAB PO PRN (22:51)
[2019-05-23] MEDS: HYDROcodone/ACETAMINOPHEN 5-325 MG TAB PO PRN ×2 (04:49→08:55)
[2019-05-23] MEDS: GABAPENTIN 300 MG CAP PO SCH ×3 (04:55→13:50)
[2019-05-23 06:03] VITALS: BP 121/70
--- NOTE | 2019-05-23 09:34 | Progress Note ---
Assessment and Plan Patient awake and oriented. patient counselled on using O2 as needed for shortness of breath.. O2 saturation is 95% on room air. Patient denies hemoptysis today. No acute respiratory distress. Patient Chest X-ray reported right lower lobe opacity. Patient afebrile and has no leukocytosis. Patients heart rate and blood pressure running good. Patients last calcium 8.8, in the normal range. Patient has debridement of wound on left hand. Patient has venous doppler studies of legs, reported DVT.Patient has IVC filter placement . Patient undergoing rehab. - Patient Problems (1) Acute respiratory failure Current Visit: Yes Status: Resolved Qualifiers: Respiratory failure complication: hypoxia Qualified Code(s): J96.01 - Acute respiratory failure with hypoxia Plan to address problem: O2 2L as needed for shortness of breath or desaturation. Albuterol/atrovent aerosol treatments q 6 hours. Continue Prevacid. Patient has IVC filter placement for DVT.. (2) Altered mental status Current Visit: Yes Status: Acute Qualifiers: Altered mental status type: unspecified Qualified Code(s): R41.82 - Altered mental status, unspecified Plan to address problem: Management as per primary care and neurology. (3) Atrial fibrillation with RVR Current Visit: Yes Status: Acute Plan to address problem: Management as per cardiology. (4) Cardiopulmonary arrest Current Visit: Yes Status: Acute Plan to address problem: Patient resuscitated. Presently resting on room air. O2 saturation 95%.. (5) Acute renal failure Current Visit: Yes Status: Acute Qualifiers: Acute renal failure type: with acute tubular necrosis Qualified Code(s): N17.0 - Acute kidney failure with tubular necrosis Plan to address problem: Management as per nephrology. (6) Aspiration pneumonia Current Visit: Yes Status: Acute Qualifiers: Aspiration pneumonia type: unspecified Plan to address problem: Patient treated with Azactam and zyvox. Chest x-ray reported right lower lobe opacity however Patient is afebrile and no leukocytosis. (7) GI bleed Current Visit: Yes Status: Acute Plan to address problem: Management as per gastroenterology. (8) DVT (deep venous thrombosis) Current Visit: Yes Status: Acute Plan to address problem: Venous doppler studies of legs reported DVT. Patient has IVC filter placement for DVT.. Subjective Date of service: 05/23/19 Principal diagnosis: myopathy Interval history: Patient awake and oriented. patient counselled on using O2 as needed for shortness of breath.. O2 saturation is 95% on room air. Patient denies hemoptysis today. No acute respiratory distress. Patient Chest X-ray reported right lower lobe opacity. Patient afebrile and has no leukocytosis. Patients heart rate and blood pressure running good. Patients last calcium 8.8, in the normal range. Patient has debridement of wound on left hand. Patient has venous doppler studies of legs, reported DVT.Patient has IVC filter placement . Patient undergoing rehab. Objective Vital Signs - 12hr 05/23/19 05:00 Temperature 97.5 F L Pulse Rate 72 Respiratory 24 Rate Blood Pressure 121/70 O2 Sat by Pulse 95 Oximetry Constitutional: alert Eyes: non-icteric ENT: oropharynx moist, other Neck: supple, no lymphadenopathy, no JVD, other (large neck circumference) Effort: normal Ascultation: Bilateral: diminished breath sounds, rales, rhonchi (scant) Percussion: Bilateral: not dull Cardiovascular: regular rate and rhythm, other ( S1,S2) Gastrointestinal: normoactive bowel sounds, soft, non-tender Integumentary: normal Extremities: no cyanosis, pink and warm, pulses normal, no ischemia or petechiae Neurologic: normal mental status, non-focal exam (grossly), pupils equal and round, CN II-XII normal, other (very weak, bilateral foot drop) Psychiatric: mood appropriate, affect normal CBC and BMP: 05/20/19 06:34 05/19/19 06:47 ABG, PT/INR, D-dimer: ABG POC ABG pH 7.401 (7.35-7.45) 04/07/19 12:57 ABG pH 7.388 pH Units (7.350-7.450) 04/06/19 05:20 POC ABG pCO2 41.5 (35-45) 04/07/19 12:57 ABG pCO2 38.5 mm Hg 04/06/19 05:20 POC ABG pO2 107 (80-105) H 04/07/19 12:57 ABG pO2 104.0 mm Hg (80.0-90.0) H 04/06/19 05:20 POC ABG HCO3 25.7 (22-26 mml/L) 04/07/19 12:57 POC ABG Total CO2 27 (23-27mmol/L) 04/07/19 12:57 POC ABG O2 Sat 98 04/07/19 12:57 ABG O2 Saturation 97.8 % (95.0-99.0) 04/06/19 05:20 PT/INR, D-dimer PT 14.8 Sec. (12.2-14.9) 05/10/19 06:42 INR 1.17 (0.87-1.13) H 05/10/19 06:42 D-Dimer 4845.98 ng/mlDDU (0-234) H 03/28/19 12:00 Abnormal lab findings: Abnormal Labs 03/16/19 03/16/19 03/16/19 15:32 16:03 16:05 WBC 27.0 H RBC 5.55 H Hgb 15.7 H Hct 47.1 H MCV MCH MCHC RDW Plt Count 75 L Lymph % (Auto) Amelia % (Auto) Eos % (Auto) Lymph # Amelia # Eos # Seg Neutrophils % Seg Neuts % (Manual) 85.0 H Lymphocytes % (Manual) 2.0 L Monocytes % (Manual) Eosinophils % (Manual) Nucleated RBC % Seg Neutrophils # Seg Neutrophils # Man 23.0 H Lymphocytes # (Manual) 0.5 L Monocytes # (Manual) Eosinophils # (Manual) PT INR D-Dimer Heparin Anti-Xa Level POC ABG pH ABG pH POC ABG pCO2 POC ABG pO2 ABG pO2 ABG HCO3 ABG O2 Saturation ABG Base Excess ABG Hemoglobin Oxyhemoglobin Sodium 127 L Potassium Chloride 87.8 L Carbon Dioxide 17 L BUN 49 H Creatinine 5.8 H Glucose 150 H POC Glucose 118 H Lactic Acid Calcium 6.6 L Ionized Calcium Phosphorus Magnesium 1.10 L Iron TIBC Ferritin Total Bilirubin Direct Bilirubin AST ALT Alkaline Phosphatase Total Creatine Kinase 78162 H CK-MB (CK-2) Troponin T C-Reactive Protein Serum Total Protein Total Protein Albumin Bvnoy-3-Qyznifcxp Fimph-4-Shgxfzgla PEP Interpretation Triglycerides LDL Cholesterol Direct HDL Cholesterol Free T4 PTH Intact Urine WBC (Auto) Urine Creatinine Salicylates Acetaminophen Crossmatch 03/16/19 03/16/19 03/16/19 16:59 17:05 17:05 WBC RBC Hgb Hct MCV MCH MCHC RDW Plt Count Lymph % (Auto) Amelia % (Auto) Eos % (Auto) Lymph # Amelia # Eos # Seg Neutrophils % Seg Neuts % (Manual) Lymphocytes % (Manual) Monocytes % (Manual) Eosinophils % (Manual) Nucleated RBC % Seg Neutrophils # Seg Neutrophils # Man Lymphocytes # (Manual) Monocytes # (Manual) Eosinophils # (Manual) PT INR D-Dimer Heparin Anti-Xa Level POC ABG pH 7.297 L ABG pH POC ABG pCO2 33.0 L POC ABG pO2 ABG pO2 ABG HCO3 ABG O2 Saturation ABG Base Excess ABG Hemoglobin Oxyhemoglobin Sodium Potassium Chloride Carbon Dioxide BUN Creatinine Glucose POC Glucose Lactic Acid Calcium Ionized Calcium Phosphorus Magnesium Iron TIBC Ferritin Total Bilirubin Direct Bilirubin AST ALT Alkaline Phosphatase Total Creatine Kinase 79682 H CK-MB (CK-2) 83.1 H Troponin T C-Reactive Protein Serum Total Protein Total Protein Albumin Ujnqa-2-Gpavasksx Omqls-0-Qbnzeuxfx PEP Interpretation Triglycerides LDL Cholesterol Direct HDL Cholesterol Free T4 0.72 L PTH Intact Urine WBC (Auto) Urine Creatinine Salicylates Acetaminophen Crossmatch 03/16/19 03/16/19 03/16/19 17:05 17:05 17:05 WBC RBC Hgb Hct MCV MCH MCHC RDW Plt Count Lymph % (Auto) Amelia % (Auto) Eos % (Auto) Lymph # Amelia # Eos # Seg Neutrophils % Seg Neuts % (Manual) Lymphocytes % (Manual) Monocytes % (Manual) Eosinophils % (Manual) Nucleated RBC % Seg Neutrophils # Seg Neutrophils # Man Lymphocytes # (Manual) Monocytes # (Manual) Eosinophils # (Manual) PT INR D-Dimer Heparin Anti-Xa Level POC ABG pH ABG pH POC ABG pCO2 POC ABG pO2 ABG pO2 ABG HCO3 ABG O2 Saturation ABG Base Excess ABG Hemoglobin Oxyhemoglobin Sodium Potassium Chloride Carbon Dioxide BUN Creatinine Glucose POC Glucose Lactic Acid 5.10 H* Calcium Ionized Calcium Phosphorus Magnesium Iron TIBC Ferritin Total Bilirubin Direct Bilirubin AST ALT Alkaline Phosphatase Total Creatine Kinase CK-MB (CK-2) Troponin T C-Reactive Protein Serum Total Protein Total Protein Albumin Pnnif-0-Abqeihugi Iqbgx-9-Cjvvaozpx PEP Interpretation Triglycerides LDL Cholesterol Direct HDL Cholesterol Free T4 PTH Intact Urine WBC (Auto) Urine Creatinine Salicylates < 0.3 L Acetaminophen < 5.0 L Crossmatch 03/16/19 03/16/19 03/16/19 17:05 17:05 20:35 WBC RBC Hgb Hct MCV MCH MCHC RDW Plt Count Lymph % (Auto) Amelia % (Auto) Eos % (Auto) Lymph # Amelia # Eos # Seg Neutrophils % Seg Neuts % (Manual) Lymphocytes % (Manual) Monocytes % (Manual) Eosinophils % (Manual) Nucleated RBC % Seg Neutrophils # Seg Neutrophils # Man Lymphocytes # (Manual) Monocytes # (Manual) Eosinophils # (Manual) PT 15.9 H INR 1.30 H D-Dimer Heparin Anti-Xa Level POC ABG pH ABG pH POC ABG pCO2 POC ABG pO2 ABG pO2 ABG HCO3 ABG O2 Saturation ABG Base Excess ABG Hemoglobin Oxyhemoglobin Sodium Potassium Chloride Carbon Dioxide BUN Creatinine Glucose POC Glucose Lactic Acid 3.30 H* Calcium Ionized Calcium Phosphorus Magnesium Iron TIBC Ferritin Total Bilirubin 6.20 H Direct Bilirubin 5.9 H AST 800 H ALT 120 H Alkaline Phosphatase Total Creatine Kinase CK-MB (CK-2) Troponin T C-Reactive Protein Serum Total Protein Total Protein 4.4 L Albumin 2.4 L Puluy-1-Wxrlmotvo Lvjwn-4-Irwtwcovp PEP Interpretation Triglycerides LDL Cholesterol Direct HDL Cholesterol Free T4 PTH Intact Urine WBC (Auto) Urine Creatinine Salicylates Acetaminophen Crossmatch 03/16/19 03/16/19 03/16/19 21:45 22:32 Unknown WBC RBC Hgb Hct MCV MCH MCHC RDW Plt Count Lymph % (Auto) Amelia % (Auto) Eos % (Auto) Lymph # Amelia # Eos # Seg Neutrophils % Seg Neuts % (Manual) Lymphocytes % (Manual) Monocytes % (Manual) Eosinophils % (Manual) Nucleated RBC % Seg Neutrophils # Seg Neutrophils # Man Lymphocytes # (Manual) Monocytes # (Manual) Eosinophils # (Manual) PT INR D-Dimer Heparin Anti-Xa Level POC ABG pH ABG pH POC ABG pCO2 POC ABG pO2 ABG pO2 ABG HCO3 ABG O2 Saturation ABG Base Excess ABG Hemoglobin Oxyhemoglobin Sodium Potassium Chloride Carbon Dioxide BUN Creatinine Glucose POC Glucose Lactic Acid 3.30 H* 3.00 H* Calcium Ionized Calcium Phosphorus Magnesium Iron TIBC Ferritin Total Bilirubin Direct Bilirubin AST ALT Alkaline Phosphatase Total Creatine Kinase CK-MB (CK-2) Troponin T 0.047 H D C-Reactive Protein Serum Total Protein Total Protein Albumin Zqfwq-7-Hktmtjftn Uslsk-8-Geunylnva PEP Interpretation Triglycerides 395 H LDL Cholesterol Direct 10 L HDL Cholesterol 7 L Free T4 PTH Intact Urine WBC (Auto) Urine Creatinine Salicylates Acetaminophen Crossmatch 03/17/19 03/17/19 03/17/19 03:45 03:45 03:45 WBC RBC Hgb Hct MCV MCH MCHC RDW Plt Count Lymph % (Auto) Amelia % (Auto) Eos % (Auto) Lymph # Amelia # Eos # Seg Neutrophils % Seg Neuts % (Manual) Lymphocytes % (Manual) Monocytes % (Manual) Eosinophils % (Manual) Nucleated RBC % Seg Neutrophils # Seg Neutrophils # Man Lymphocytes # (Manual) Monocytes # (Manual) Eosinophils # (Manual) PT INR D-Dimer Heparin Anti-Xa Level POC ABG pH ABG pH POC ABG pCO2 POC ABG pO2 ABG pO2 ABG HCO3 ABG O2 Saturation ABG Base Excess ABG Hemoglobin Oxyhemoglobin Sodium 131 L Potassium Chloride 88.9 L Carbon Dioxide BUN 53 H Creatinine 7.1 H Glucose POC Glucose Lactic Acid 4.10 H* Calcium 5.4 L* D Ionized Calcium Phosphorus 7.30 H Magnesium 1.60 L Iron TIBC Ferritin Total Bilirubin 5.90 H Direct Bilirubin AST 801 H ALT 109 H Alkaline Phosphatase Total Creatine Kinase 16520 H 74786 H CK-MB (CK-2) 41.5 H Troponin T 0.054 H C-Reactive Protein Serum Total Protein Total Protein 4.5 L Albumin 2.0 L Kiyai-9-Psflzyuye Dutla-9-Kqkelvciy PEP Interpretation Triglycerides LDL Cholesterol Direct HDL Cholesterol Free T4 PTH Intact Urine WBC (Auto) Urine Creatinine Salicylates Acetaminophen Crossmatch 03/17/19 03/17/19 03/17/19 05:47 07:16 07:16 WBC RBC Hgb Hct MCV MCH MCHC RDW Plt Count Lymph % (Auto) Amelia % (Auto) Eos % (Auto) Lymph # Amelia # Eos # Seg Neutrophils % Seg Neuts % (Manual) Lymphocytes % (Manual) Monocytes % (Manual) Eosinophils % (Manual) Nucleated RBC % Seg Neutrophils # Seg Neutrophils # Man Lymphocytes # (Manual) Monocytes # (Manual) Eosinophils # (Manual) PT INR D-Dimer Heparin Anti-Xa Level POC ABG pH 7.193 L ABG pH POC ABG pCO2 45.2 H POC ABG pO2 65 L ABG pO2 ABG HCO3 ABG O2 Saturation ABG Base Excess ABG Hemoglobin Oxyhemoglobin Sodium Potassium Chloride Carbon Dioxide BUN Creatinine Glucose POC Glucose Lactic Acid 5.50 H* Calcium Ionized Calcium Phosphorus Magnesium Iron TIBC Ferritin Total Bilirubin Direct Bilirubin AST ALT Alkaline Phosphatase Total Creatine Kinase 44906 H CK-MB (CK-2) 54.3 H Troponin T 0.058 H C-Reactive Protein Serum Total Protein Total Protein Albumin Gvqet-4-Gsvvfqjcd Gutlc-3-Epgfymnes PEP Interpretation Triglycerides LDL Cholesterol Direct HDL Cholesterol Free T4 PTH Intact Urine WBC (Auto) Urine Creatinine Salicylates Acetaminophen Crossmatch 03/17/19 03/17/19 03/17/19 11:52 12:51 13:01 WBC RBC Hgb Hct MCV MCH MCHC RDW Plt Count Lymph % (Auto) Amelia % (Auto) Eos % (Auto) Lymph # Amelia # Eos # Seg Neutrophils % Seg Neuts % (Manual) Lymphocytes % (Manual) Monocytes % (Manual) Eosinophils % (Manual) Nucleated RBC % Seg Neutrophils # Seg Neutrophils # Man Lymphocytes # (Manual) Monocytes # (Manual) Eosinophils # (Manual) PT INR D-Dimer Heparin Anti-Xa Level POC ABG pH 7.154 L ABG pH POC ABG pCO2 34.3 L POC ABG pO2 73 L ABG pO2 ABG HCO3 ABG O2 Saturation ABG Base Excess ABG Hemoglobin Oxyhemoglobin Sodium Potassium Chloride Carbon Dioxide BUN Creatinine Glucose POC Glucose 60 L Lactic Acid 8.20 H* Calcium Ionized Calcium Phosphorus Magnesium Iron TIBC Ferritin Total Bilirubin Direct Bilirubin AST ALT Alkaline Phosphatase Total Creatine Kinase CK-MB (CK-2) Troponin T C-Reactive Protein Serum Total Protein Total Protein Albumin Asdww-6-Xnvmevmqi Mszfe-3-Ucfamrrkl PEP Interpretation Triglycerides LDL Cholesterol Direct HDL Cholesterol Free T4 PTH Intact Urine WBC (Auto) Urine Creatinine Salicylates Acetaminophen Crossmatch 03/17/19 03/17/19 03/17/19 14:37 14:37 14:37 WBC 29.3 H RBC Hgb Hct MCV MCH MCHC RDW 15.8 H Plt Count 45 L Lymph % (Auto) Amelia % (Auto) Eos % (Auto) Lymph # Amelia # Eos # Seg Neutrophils % Seg Neuts % (Manual) 81.0 H Lymphocytes % (Manual) 1.0 L Monocytes % (Manual) 15.0 H Eosinophils % (Manual) Nucleated RBC % Seg Neutrophils # Seg Neutrophils # Man 23.7 H Lymphocytes # (Manual) 0.3 L Monocytes # (Manual) 4.4 H Eosinophils # (Manual) PT INR D-Dimer Heparin Anti-Xa Level POC ABG pH ABG pH POC ABG pCO2 POC ABG pO2 ABG pO2 ABG HCO3 ABG O2 Saturation ABG Base Excess ABG Hemoglobin Oxyhemoglobin Sodium Potassium Chloride Carbon Dioxide BUN Creatinine Glucose POC Glucose Lactic Acid 4.90 H* Calcium Ionized Calcium Phosphorus Magnesium Iron TIBC Ferritin Total Bilirubin Direct Bilirubin AST ALT Alkaline Phosphatase Total Creatine Kinase CK-MB (CK-2) Troponin T C-Reactive Protein 24.90 H Serum Total Protein Total Protein Albumin Lpraw-1-Crwnwonui Avnog-3-Qruwwvyjy PEP Interpretation Triglycerides LDL Cholesterol Direct HDL Cholesterol Free T4 PTH Intact Urine WBC (Auto) Urine Creatinine Salicylates Acetaminophen Crossmatch 03/17/19 03/17/19 03/17/19 16:05 16:05 17:02 WBC RBC Hgb Hct MCV MCH MCHC RDW Plt Count Lymph % (Auto) Amelia % (Auto) Eos % (Auto) Lymph # Amelia # Eos # Seg Neutrophils % Seg Neuts % (Manual) Lymphocytes % (Manual) Monocytes % (Manual) Eosinophils % (Manual) Nucleated RBC % Seg Neutrophils # Seg Neutrophils # Man Lymphocytes # (Manual) Monocytes # (Manual) Eosinophils # (Manual) PT INR D-Dimer Heparin Anti-Xa Level POC ABG pH 7.183 L ABG pH POC ABG pCO2 POC ABG pO2 65 L ABG pO2 ABG HCO3 ABG O2 Saturation ABG Base Excess ABG Hemoglobin Oxyhemoglobin Sodium Potassium Chloride Carbon Dioxide BUN Creatinine Glucose POC Glucose Lactic Acid Calcium Ionized Calcium Phosphorus Magnesium Iron TIBC Ferritin Total Bilirubin Direct Bilirubin AST ALT Alkaline Phosphatase Total Creatine Kinase CK-MB (CK-2) Troponin T C-Reactive Protein Serum Total Protein Total Protein Albumin Qllgv-8-Clapqrgqy Mknnj-2-Bbicpnkht PEP Interpretation Triglycerides LDL Cholesterol Direct HDL Cholesterol Free T4 PTH Intact Urine WBC (Auto) 30.0 H Urine Creatinine 106.6 H Salicylates Acetaminophen Crossmatch 03/18/19 03/18/19 03/18/19 05:12 05:16 05:53 WBC RBC Hgb Hct MCV MCH MCHC RDW Plt Count Lymph % (Auto) Amelia % (Auto) Eos % (Auto) Lymph # Amelia # Eos # Seg Neutrophils % Seg Neuts % (Manual) Lymphocytes % (Manual) Monocytes % (Manual) Eosinophils % (Manual) Nucleated RBC % Seg Neutrophils # Seg Neutrophils # Man Lymphocytes # (Manual) Monocytes # (Manual) Eosinophils # (Manual) PT INR D-Dimer Heparin Anti-Xa Level POC ABG pH 7.257 L ABG pH POC ABG pCO2 31.6 L POC ABG pO2 69 L ABG pO2 ABG HCO3 ABG O2 Saturation ABG Base Excess ABG Hemoglobin Oxyhemoglobin Sodium Potassium Chloride Carbon Dioxide BUN Creatinine Glucose POC Glucose 141 H Lactic Acid 5.00 H* Calcium Ionized Calcium Phosphorus Magnesium Iron TIBC Ferritin Total Bilirubin Direct Bilirubin AST ALT Alkaline Phosphatase Total Creatine Kinase CK-MB (CK-2) Troponin T C-Reactive Protein Serum Total Protein Total Protein Albumin Ybtqs-9-Vjmzslcbv Jdvvd-3-Lvlmpmcmg PEP Interpretation Triglycerides LDL Cholesterol Direct HDL Cholesterol Free T4 PTH Intact Urine WBC (Auto) Urine Creatinine Salicylates Acetaminophen Crossmatch 03/18/19 03/18/19 03/18/19 06:57 08:40 08:40 WBC 31.7 H RBC Hgb Hct MCV MCH MCHC RDW 15.5 H Plt Count 35 L Lymph % (Auto) Amelia % (Auto) Eos % (Auto) Lymph # Amelia # Eos # Seg Neutrophils % Seg Neuts % (Manual) Lymphocytes % (Manual) Monocytes % (Manual) Eosinophils % (Manual) Nucleated RBC % Seg Neutrophils # Seg Neutrophils # Man Lymphocytes # (Manual) Monocytes # (Manual) Eosinophils # (Manual) PT INR D-Dimer Heparin Anti-Xa Level POC ABG pH ABG pH POC ABG pCO2 POC ABG pO2 ABG pO2 ABG HCO3 ABG O2 Saturation ABG Base Excess ABG Hemoglobin Oxyhemoglobin Sodium 132 L Potassium 5.5 H D Chloride 88.5 L Carbon Dioxide 18 L BUN 71 H Creatinine 8.1 H Glucose 205 H POC Glucose Lactic Acid 5.00 H* Calcium 4.1 L* D Ionized Calcium Phosphorus Magnesium 2.40 H Iron TIBC Ferritin Total Bilirubin 7.50 H Direct Bilirubin AST 1088 H ALT 159 H Alkaline Phosphatase 190 H Total Creatine Kinase 174275 H CK-MB (CK-2) Troponin T C-Reactive Protein Serum Total Protein Total Protein 4.7 L Albumin 1.8 L Kpzdx-6-Xkvszqput Usuot-4-Svpnkpzje PEP Interpretation Triglycerides LDL Cholesterol Direct HDL Cholesterol Free T4 PTH Intact Urine WBC (Auto) Urine Creatinine Salicylates Acetaminophen Crossmatch 03/18/19 03/18/19 03/18/19 12:33 12:50 13:19 WBC RBC Hgb Hct MCV MCH MCHC RDW Plt Count Lymph % (Auto) Amelia % (Auto) Eos % (Auto) Lymph # Amelia # Eos # Seg Neutrophils % Seg Neuts % (Manual) Lymphocytes % (Manual) Monocytes % (Manual) Eosinophils % (Manual) Nucleated RBC % Seg Neutrophils # Seg Neutrophils # Man Lymphocytes # (Manual) Monocytes # (Manual) Eosinophils # (Manual) PT INR D-Dimer Heparin Anti-Xa Level POC ABG pH 7.282 L ABG pH POC ABG pCO2 POC ABG pO2 67 L ABG pO2 ABG HCO3 ABG O2 Saturation ABG Base Excess ABG Hemoglobin Oxyhemoglobin Sodium Potassium Chloride Carbon Dioxide BUN Creatinine Glucose POC Glucose 129 H Lactic Acid 3.30 H* Calcium Ionized Calcium Phosphorus Magnesium Iron TIBC Ferritin Total Bilirubin Direct Bilirubin AST ALT Alkaline Phosphatase Total Creatine Kinase CK-MB (CK-2) Troponin T C-Reactive Protein Serum Total Protein Total Protein Albumin Froxw-4-Elteigtmp Coyan-9-Phdnnkqjn PEP Interpretation Triglycerides LDL Cholesterol Direct HDL Cholesterol Free T4 PTH Intact Urine WBC (Auto) Urine Creatinine Salicylates Acetaminophen Crossmatch 03/18/19 03/18/19 03/18/19 13:19 16:50 18:11 WBC RBC Hgb Hct MCV MCH MCHC RDW Plt Count Lymph % (Auto) Amelia % (Auto) Eos % (Auto) Lymph # Amelia # Eos # Seg Neutrophils % Seg Neuts % (Manual) Lymphocytes % (Manual) Monocytes % (Manual) Eosinophils % (Manual) Nucleated RBC % Seg Neutrophils # Seg Neutrophils # Man Lymphocytes # (Manual) Monocytes # (Manual) Eosinophils # (Manual) PT INR D-Dimer Heparin Anti-Xa Level POC ABG pH ABG pH POC ABG pCO2 POC ABG pO2 59 L ABG pO2 ABG HCO3 ABG O2 Saturation ABG Base Excess ABG Hemoglobin Oxyhemoglobin Sodium Potassium Chloride Carbon Dioxide BUN Creatinine Glucose POC Glucose 151 H Lactic Acid Calcium 4.2 L* Ionized Calcium Phosphorus Magnesium Iron TIBC Ferritin Total Bilirubin Direct Bilirubin AST ALT Alkaline Phosphatase Total Creatine Kinase 871454 H CK-MB (CK-2) Troponin T C-Reactive Protein Serum Total Protein Total Protein Albumin Utmph-4-Lvwwjkblg Jzbdo-1-Fprrlbegf PEP Interpretation Triglycerides LDL Cholesterol Direct HDL Cholesterol Free T4 PTH Intact Urine WBC (Auto) Urine Creatinine Salicylates Acetaminophen Crossmatch 03/18/19 03/18/19 03/19/19 18:20 23:39 01:42 WBC RBC Hgb Hct MCV MCH MCHC RDW Plt Count Lymph % (Auto) Amelia % (Auto) Eos % (Auto) Lymph # Amelia # Eos # Seg Neutrophils % Seg Neuts % (Manual) Lymphocytes % (Manual) Monocytes % (Manual) Eosinophils % (Manual) Nucleated RBC % Seg Neutrophils # Seg Neutrophils # Man Lymphocytes # (Manual) Monocytes # (Manual) Eosinophils # (Manual) PT INR D-Dimer Heparin Anti-Xa Level POC ABG pH 7.345 L ABG pH 7.285 L POC ABG pCO2 POC ABG pO2 59 L ABG pO2 44.0 L ABG HCO3 ABG O2 Saturation 70.9 L ABG Base Excess -5.7 L ABG Hemoglobin 11.9 L Oxyhemoglobin 69.6 L Sodium Potassium Chloride Carbon Dioxide BUN Creatinine Glucose POC Glucose 152 H Lactic Acid Calcium Ionized Calcium Phosphorus Magnesium Iron TIBC Ferritin Total Bilirubin Direct Bilirubin AST ALT Alkaline Phosphatase Total Creatine Kinase CK-MB (CK-2) Troponin T C-Reactive Protein Serum Total Protein Total Protein Albumin Zkcme-2-Utyammhld Bvdzm-9-Eongiscju PEP Interpretation Triglycerides LDL Cholesterol Direct HDL Cholesterol Free T4 PTH Intact Urine WBC (Auto) Urine Creatinine Salicylates Acetaminophen Crossmatch 03/19/19 03/19/19 03/19/19 04:00 04:00 05:35 WBC 36.5 H RBC Hgb Hct MCV MCH MCHC RDW 15.8 H Plt Count 35 L Lymph % (Auto) Amelia % (Auto) Eos % (Auto) Lymph # Amelia # Eos # Seg Neutrophils % Seg Neuts % (Manual) Lymphocytes % (Manual) Monocytes % (Manual) Eosinophils % (Manual) Nucleated RBC % Seg Neutrophils # Seg Neutrophils # Man Lymphocytes # (Manual) Monocytes # (Manual) Eosinophils # (Manual) PT INR D-Dimer Heparin Anti-Xa Level POC ABG pH ABG pH 7.265 L POC ABG pCO2 POC ABG pO2 ABG pO2 35.4 L* ABG HCO3 ABG O2 Saturation 54.4 L ABG Base Excess -6.7 L ABG Hemoglobin 12.9 L Oxyhemoglobin 53.4 L Sodium 132 L Potassium 5.7 H Chloride 89.8 L Carbon Dioxide 19 L BUN 62 H Creatinine 6.4 H Glucose 151 H POC Glucose Lactic Acid Calcium 5.2 L* D Ionized Calcium Phosphorus Magnesium Iron TIBC Ferritin Total Bilirubin 7.80 H Direct Bilirubin AST 682 H ALT 130 H Alkaline Phosphatase 167 H Total Creatine Kinase CK-MB (CK-2) Troponin T C-Reactive Protein Serum Total Protein Total Protein 4.8 L Albumin 2.3 L Xrbko-2-Yqosvyvok Pmxpz-5-Whsepljrb PEP Interpretation Triglycerides LDL Cholesterol Direct HDL Cholesterol Free T4 PTH Intact Urine WBC (Auto) Urine Creatinine Salicylates Acetaminophen Crossmatch 03/19/19 03/19/19 03/19/19 05:49 09:16 09:50 WBC RBC Hgb Hct MCV MCH MCHC RDW Plt Count Lymph % (Auto) Amelia % (Auto) Eos % (Auto) Lymph # Amelia # Eos # Seg Neutrophils % Seg Neuts % (Manual) Lymphocytes % (Manual) Monocytes % (Manual) Eosinophils % (Manual) Nucleated RBC % Seg Neutrophils # Seg Neutrophils # Man Lymphocytes # (Manual) Monocytes # (Manual) Eosinophils # (Manual) PT INR D-Dimer Heparin Anti-Xa Level POC ABG pH 7.222 L ABG pH POC ABG pCO2 56.6 H POC ABG pO2 ABG pO2 ABG HCO3 ABG O2 Saturation ABG Base Excess ABG Hemoglobin Oxyhemoglobin Sodium Potassium Chloride Carbon Dioxide BUN Creatinine Glucose POC Glucose 154 H Lactic Acid 2.70 H* Calcium Ionized Calcium Phosphorus Magnesium Iron TIBC Ferritin Total Bilirubin Direct Bilirubin AST ALT Alkaline Phosphatase Total Creatine Kinase CK-MB (CK-2) Troponin T C-Reactive Protein Serum Total Protein Total Protein Albumin Agcgi-7-Opgvcrzwp Qfuoq-2-Jwysoavch PEP Interpretation Triglycerides LDL Cholesterol Direct HDL Cholesterol Free T4 PTH Intact Urine WBC (Auto) Urine Creatinine Salicylates Acetaminophen Crossmatch 03/19/19 03/19/19 03/19/19 09:50 11:28 17:58 WBC RBC Hgb Hct MCV MCH MCHC RDW Plt Count Lymph % (Auto) Amelia % (Auto) Eos % (Auto) Lymph # Amelia # Eos # Seg Neutrophils % Seg Neuts % (Manual) Lymphocytes % (Manual) Monocytes % (Manual) Eosinophils % (Manual) Nucleated RBC % Seg Neutrophils # Seg Neutrophils # Man Lymphocytes # (Manual) Monocytes # (Manual) Eosinophils # (Manual) PT INR D-Dimer Heparin Anti-Xa Level POC ABG pH 7.250 L ABG pH POC ABG pCO2 52.6 H POC ABG pO2 ABG pO2 ABG HCO3 ABG O2 Saturation ABG Base Excess ABG Hemoglobin Oxyhemoglobin Sodium Potassium Chloride Carbon Dioxide BUN Creatinine Glucose POC Glucose 160 H Lactic Acid Calcium Ionized Calcium Phosphorus Magnesium Iron TIBC Ferritin Total Bilirubin Direct Bilirubin AST ALT Alkaline Phosphatase Total Creatine Kinase 95775 H CK-MB (CK-2) Troponin T C-Reactive Protein Serum Total Protein Total Protein Albumin Sopff-0-Ywdzmmcsz Uytex-5-Ctxxidsrn PEP Interpretation Triglycerides LDL Cholesterol Direct HDL Cholesterol Free T4 PTH Intact Urine WBC (Auto) Urine Creatinine Salicylates Acetaminophen Crossmatch 03/19/19 03/19/19 03/20/19 19:48 21:03 02:16 WBC RBC Hgb Hct MCV MCH MCHC RDW Plt Count Lymph % (Auto) Amelia % (Auto) Eos % (Auto) Lymph # Amelia # Eos # Seg Neutrophils % Seg Neuts % (Manual) Lymphocytes % (Manual) Monocytes % (Manual) Eosinophils % (Manual) Nucleated RBC % Seg Neutrophils # Seg Neutrophils # Man Lymphocytes # (Manual) Monocytes # (Manual) Eosinophils # (Manual) PT INR D-Dimer Heparin Anti-Xa Level POC ABG pH 7.279 L ABG pH POC ABG pCO2 50.3 H POC ABG pO2 129 H ABG pO2 ABG HCO3 ABG O2 Saturation ABG Base Excess ABG Hemoglobin Oxyhemoglobin Sodium Potassium Chloride Carbon Dioxide BUN Creatinine Glucose POC Glucose 119 H 119 H Lactic Acid Calcium Ionized Calcium Phosphorus Magnesium Iron TIBC Ferritin Total Bilirubin Direct Bilirubin AST ALT Alkaline Phosphatase Total Creatine Kinase CK-MB (CK-2) Troponin T C-Reactive Protein Serum Total Protein Total Protein Albumin Hlbvy-3-Bxxnszpbt Dqnni-9-Ctxltvrdw PEP Interpretation Triglycerides LDL Cholesterol Direct HDL Cholesterol Free T4 PTH Intact Urine WBC (Auto) Urine Creatinine Salicylates Acetaminophen Crossmatch 03/20/19 03/20/19 03/20/19 04:23 05:05 09:30 WBC 36.3 H RBC Hgb Hct MCV MCH MCHC RDW 15.5 H Plt Count 29 L Lymph % (Auto) Amelia % (Auto) Eos % (Auto) Lymph # Amelia # Eos # Seg Neutrophils % Seg Neuts % (Manual) Lymphocytes % (Manual) Monocytes % (Manual) Eosinophils % (Manual) Nucleated RBC % Seg Neutrophils # Seg Neutrophils # Man Lymphocytes # (Manual) Monocytes # (Manual) Eosinophils # (Manual) PT INR D-Dimer Heparin Anti-Xa Level POC ABG pH ABG pH POC ABG pCO2 POC ABG pO2 280 H ABG pO2 ABG HCO3 ABG O2 Saturation ABG Base Excess ABG Hemoglobin Oxyhemoglobin Sodium Potassium Chloride Carbon Dioxide BUN Creatinine Glucose POC Glucose 115 H Lactic Acid Calcium Ionized Calcium Phosphorus Magnesium Iron TIBC Ferritin Total Bilirubin Direct Bilirubin AST ALT Alkaline Phosphatase Total Creatine Kinase CK-MB (CK-2) Troponin T C-Reactive Protein Serum Total Protein Total Protein Albumin Hpajz-8-Zlilxefxz Pmcnx-9-Wexnqvixx PEP Interpretation Triglycerides LDL Cholesterol Direct HDL Cholesterol Free T4 PTH Intact Urine WBC (Auto) Urine Creatinine Salicylates Acetaminophen Crossmatch 03/20/19 03/20/19 03/20/19 09:30 09:30 11:34 WBC RBC Hgb Hct MCV MCH MCHC RDW Plt Count Lymph % (Auto) Amelia % (Auto) Eos % (Auto) Lymph # Amelia # Eos # Seg Neutrophils % Seg Neuts % (Manual) Lymphocytes % (Manual) Monocytes % (Manual) Eosinophils % (Manual) Nucleated RBC % Seg Neutrophils # Seg Neutrophils # Man Lymphocytes # (Manual) Monocytes # (Manual) Eosinophils # (Manual) PT INR D-Dimer Heparin Anti-Xa Level POC ABG pH ABG pH POC ABG pCO2 POC ABG pO2 ABG pO2 ABG HCO3 ABG O2 Saturation ABG Base Excess ABG Hemoglobin Oxyhemoglobin Sodium 131 L Potassium Chloride 92.3 L Carbon Dioxide 20 L BUN 68 H Creatinine 6.1 H Glucose 164 H POC Glucose 141 H Lactic Acid Calcium 5.3 L* Ionized Calcium Phosphorus Magnesium Iron TIBC Ferritin Total Bilirubin 9.50 H Direct Bilirubin AST 381 H ALT 116 H Alkaline Phosphatase 255 H Total Creatine Kinase 06613 H CK-MB (CK-2) Troponin T C-Reactive Protein Serum Total Protein Total Protein 5.1 L Albumin 2.3 L Vvarp-5-Quxjemvgc Soero-0-Vnqkboagp PEP Interpretation Triglycerides LDL Cholesterol Direct HDL Cholesterol Free T4 PTH Intact Urine WBC (Auto) Urine Creatinine Salicylates Acetaminophen Crossmatch 03/20/19 03/20/19 03/20/19 14:41 14:45 18:50 WBC RBC Hgb Hct MCV MCH MCHC RDW Plt Count Lymph % (Auto) Amelia % (Auto) Eos % (Auto) Lymph # Amelia # Eos # Seg Neutrophils % Seg Neuts % (Manual) Lymphocytes % (Manual) Monocytes % (Manual) Eosinophils % (Manual) Nucleated RBC % Seg Neutrophils # Seg Neutrophils # Man Lymphocytes # (Manual) Monocytes # (Manual) Eosinophils # (Manual) PT INR D-Dimer Heparin Anti-Xa Level POC ABG pH ABG pH POC ABG pCO2 POC ABG pO2 ABG pO2 ABG HCO3 ABG O2 Saturation ABG Base Excess ABG Hemoglobin Oxyhemoglobin Sodium Potassium Chloride Carbon Dioxide BUN Creatinine Glucose POC Glucose 117 H Lactic Acid 2.90 H* Calcium Ionized Calcium Phosphorus Magnesium Iron TIBC Ferritin Total Bilirubin Direct Bilirubin AST ALT Alkaline Phosphatase Total Creatine Kinase CK-MB (CK-2) Troponin T C-Reactive Protein 13.30 H Serum Total Protein Total Protein Albumin Ajjjv-2-Frwysaqcu Objfz-0-Dxezchmgi PEP Interpretation Triglycerides LDL Cholesterol Direct HDL Cholesterol Free T4 PTH Intact Urine WBC (Auto) Urine Creatinine Salicylates Acetaminophen Crossmatch 03/20/19 03/21/19 03/21/19 21:55 04:26 04:26 WBC 37.8 H RBC Hgb Hct MCV MCH MCHC RDW 15.4 H Plt Count 36 L Lymph % (Auto) Amelia % (Auto) Eos % (Auto) Lymph # Amelia # Eos # Seg Neutrophils % Seg Neuts % (Manual) 93.0 H Lymphocytes % (Manual) 3.0 L Monocytes % (Manual) Eosinophils % (Manual) Nucleated RBC % 1.0 H Seg Neutrophils # 34.6 H Seg Neutrophils # Man 35.2 H Lymphocytes # (Manual) 1.1 L Monocytes # (Manual) Eosinophils # (Manual) PT INR D-Dimer Heparin Anti-Xa Level POC ABG pH ABG pH POC ABG pCO2 POC ABG pO2 ABG pO2 ABG HCO3 ABG O2 Saturation ABG Base Excess ABG Hemoglobin Oxyhemoglobin Sodium 131 L Potassium Chloride 90.7 L Carbon Dioxide 21 L BUN 69 H Creatinine 5.7 H Glucose 170 H POC Glucose 128 H Lactic Acid Calcium 6.1 L D Ionized Calcium Phosphorus Magnesium Iron TIBC Ferritin Total Bilirubin 9.50 H Direct Bilirubin AST 308 H ALT 124 H Alkaline Phosphatase 327 H Total Creatine Kinase 40837 H CK-MB (CK-2) Troponin T C-Reactive Protein Serum Total Protein Total Protein 5.7 L Albumin 2.6 L Zeeva-1-Lxvgtygum Cygws-1-Rtvfycpdc PEP Interpretation Triglycerides LDL Cholesterol Direct HDL Cholesterol Free T4 PTH Intact Urine WBC (Auto) Urine Creatinine Salicylates Acetaminophen Crossmatch 03/21/19 03/21/19 03/21/19 05:17 05:39 08:29 WBC RBC Hgb Hct MCV MCH MCHC RDW Plt Count Lymph % (Auto) Amelia % (Auto) Eos % (Auto) Lymph # Amelia # Eos # Seg Neutrophils % Seg Neuts % (Manual) Lymphocytes % (Manual) Monocytes % (Manual) Eosinophils % (Manual) Nucleated RBC % Seg Neutrophils # Seg Neutrophils # Man Lymphocytes # (Manual) Monocytes # (Manual) Eosinophils # (Manual) PT INR D-Dimer Heparin Anti-Xa Level POC ABG pH ABG pH POC ABG pCO2 POC ABG pO2 209 H ABG pO2 ABG HCO3 ABG O2 Saturation ABG Base Excess ABG Hemoglobin Oxyhemoglobin Sodium Potassium Chloride Carbon Dioxide BUN Creatinine Glucose POC Glucose 145 H Lactic Acid Calcium Ionized Calcium Phosphorus Magnesium Iron TIBC Ferritin Total Bilirubin Direct Bilirubin AST ALT Alkaline Phosphatase Total Creatine Kinase 62367 H CK-MB (CK-2) Troponin T C-Reactive Protein Serum Total Protein Total Protein Albumin Iciwj-5-Ycvjwspsu Nixbl-5-Xukgmmvem PEP Interpretation Triglycerides LDL Cholesterol Direct HDL Cholesterol Free T4 PTH Intact Urine WBC (Auto) Urine Creatinine Salicylates Acetaminophen Crossmatch 03/21/19 03/21/19 03/21/19 08:29 11:43 12:00 WBC RBC Hgb Hct MCV MCH MCHC RDW Plt Count Lymph % (Auto) Amelia % (Auto) Eos % (Auto) Lymph # Amelia # Eos # Seg Neutrophils % Seg Neuts % (Manual) Lymphocytes % (Manual) Monocytes % (Manual) Eosinophils % (Manual) Nucleated RBC % Seg Neutrophils # Seg Neutrophils # Man Lymphocytes # (Manual) Monocytes # (Manual) Eosinophils # (Manual) PT INR D-Dimer Heparin Anti-Xa Level POC ABG pH ABG pH POC ABG pCO2 POC ABG pO2 ABG pO2 ABG HCO3 ABG O2 Saturation ABG Base Excess ABG Hemoglobin Oxyhemoglobin Sodium Potassium Chloride Carbon Dioxide BUN Creatinine Glucose POC Glucose 123 H Lactic Acid 2.60 H* 2.20 H* Calcium Ionized Calcium Phosphorus Magnesium Iron TIBC Ferritin Total Bilirubin Direct Bilirubin AST ALT Alkaline Phosphatase Total Creatine Kinase CK-MB (CK-2) Troponin T C-Reactive Protein Serum Total Protein Total Protein Albumin Rprwq-4-Gspfyngba Ogsds-6-Xhoxomehd PEP Interpretation Triglycerides LDL Cholesterol Direct HDL Cholesterol Free T4 PTH Intact Urine WBC (Auto) Urine Creatinine Salicylates Acetaminophen Crossmatch 03/21/19 03/21/19 03/21/19 14:11 18:28 19:32 WBC RBC Hgb Hct MCV MCH MCHC RDW Plt Count Lymph % (Auto) Amelia % (Auto) Eos % (Auto) Lymph # Amelia # Eos # Seg Neutrophils % Seg Neuts % (Manual) Lymphocytes % (Manual) Monocytes % (Manual) Eosinophils % (Manual) Nucleated RBC % Seg Neutrophils # Seg Neutrophils # Man Lymphocytes # (Manual) Monocytes # (Manual) Eosinophils # (Manual) PT INR D-Dimer Heparin Anti-Xa Level POC ABG pH 7.293 L ABG pH POC ABG pCO2 POC ABG pO2 ABG pO2 ABG HCO3 ABG O2 Saturation ABG Base Excess ABG Hemoglobin Oxyhemoglobin Sodium Potassium Chloride Carbon Dioxide BUN Creatinine Glucose POC Glucose 153 H Lactic Acid 2.10 H* Calcium Ionized Calcium Phosphorus Magnesium Iron TIBC Ferritin Total Bilirubin Direct Bilirubin AST ALT Alkaline Phosphatase Total Creatine Kinase CK-MB (CK-2) Troponin T C-Reactive Protein Serum Total Protein Total Protein Albumin Hltsq-2-Lrujfdlym Cgyyr-5-Jlfpeqcki PEP Interpretation Triglycerides LDL Cholesterol Direct HDL Cholesterol Free T4 PTH Intact Urine WBC (Auto) Urine Creatinine Salicylates Acetaminophen Crossmatch 03/21/19 03/22/19 03/22/19 23:38 05:08 05:51 WBC RBC Hgb Hct MCV MCH MCHC RDW Plt Count Lymph % (Auto) Amelia % (Auto) Eos % (Auto) Lymph # Amelia # Eos # Seg Neutrophils % Seg Neuts % (Manual) Lymphocytes % (Manual) Monocytes % (Manual) Eosinophils % (Manual) Nucleated RBC % Seg Neutrophils # Seg Neutrophils # Man Lymphocytes # (Manual) Monocytes # (Manual) Eosinophils # (Manual) PT INR D-Dimer Heparin Anti-Xa Level POC ABG pH 7.283 L ABG pH POC ABG pCO2 POC ABG pO2 53 L ABG pO2 ABG HCO3 ABG O2 Saturation ABG Base Excess ABG Hemoglobin Oxyhemoglobin Sodium Potassium Chloride Carbon Dioxide BUN Creatinine Glucose POC Glucose 149 H 131 H Lactic Acid Calcium Ionized Calcium Phosphorus Magnesium Iron TIBC Ferritin Total Bilirubin Direct Bilirubin AST ALT Alkaline Phosphatase Total Creatine Kinase CK-MB (CK-2) Troponin T C-Reactive Protein Serum Total Protein Total Protein Albumin Hntid-4-Gjfxuwhrd Srovr-7-Vblqyiovg PEP Interpretation Triglycerides LDL Cholesterol Direct HDL Cholesterol Free T4 PTH Intact Urine WBC (Auto) Urine Creatinine Salicylates Acetaminophen Crossmatch 03/22/19 03/22/19 03/22/19 08:00 08:00 18:19 WBC 36.7 H RBC Hgb 11.0 L Hct 33.5 L MCV MCH MCHC RDW 15.5 H Plt Count 43 L Lymph % (Auto) Amelia % (Auto) Eos % (Auto) Lymph # Amelia # Eos # Seg Neutrophils % Seg Neuts % (Manual) 87.0 H Lymphocytes % (Manual) 7.0 L Monocytes % (Manual) Eosinophils % (Manual) Nucleated RBC % Seg Neutrophils # Seg Neutrophils # Man 31.9 H Lymphocytes # (Manual) Monocytes # (Manual) Eosinophils # (Manual) PT INR D-Dimer Heparin Anti-Xa Level POC ABG pH ABG pH POC ABG pCO2 46.4 H POC ABG pO2 108 H ABG pO2 ABG HCO3 ABG O2 Saturation ABG Base Excess ABG Hemoglobin Oxyhemoglobin Sodium 132 L Potassium 5.6 H Chloride 89.6 L Carbon Dioxide 20 L BUN 101 H Creatinine 7.4 H Glucose 124 H POC Glucose Lactic Acid Calcium 5.2 L* Ionized Calcium Phosphorus Magnesium Iron TIBC Ferritin Total Bilirubin 2.80 H Direct Bilirubin AST 119 H ALT 86 H Alkaline Phosphatase 245 H Total Creatine Kinase CK-MB (CK-2) Troponin T C-Reactive Protein Serum Total Protein Total Protein 5.6 L Albumin 2.5 L Mbcmf-7-Zefzbpgey Muudf-0-Ilaqoeyek PEP Interpretation Triglycerides LDL Cholesterol Direct HDL Cholesterol Free T4 PTH Intact Urine WBC (Auto) Urine Creatinine Salicylates Acetaminophen Crossmatch 03/22/19 03/23/19 03/23/19 20:37 04:49 05:28 WBC 35.9 H RBC Hgb 10.8 L Hct 33.2 L MCV MCH MCHC RDW 15.5 H Plt Count 49 L Lymph % (Auto) Amelia % (Auto) Eos % (Auto) Lymph # Amelia # Eos # Seg Neutrophils % Seg Neuts % (Manual) 81.0 H Lymphocytes % (Manual) 3.5 L Monocytes % (Manual) Eosinophils % (Manual) Nucleated RBC % Seg Neutrophils # Seg Neutrophils # Man 29.1 H Lymphocytes # (Manual) Monocytes # (Manual) 1.4 H Eosinophils # (Manual) PT INR D-Dimer Heparin Anti-Xa Level POC ABG pH 7.296 L ABG pH POC ABG pCO2 46.2 H POC ABG pO2 ABG pO2 ABG HCO3 ABG O2 Saturation ABG Base Excess ABG Hemoglobin Oxyhemoglobin Sodium 129 L Potassium 5.2 H Chloride 91.1 L Carbon Dioxide BUN 91 H Creatinine 6.6 H Glucose 190 H POC Glucose Lactic Acid Calcium 5.3 L* Ionized Calcium Phosphorus Magnesium Iron TIBC Ferritin Total Bilirubin 1.80 H Direct Bilirubin AST 80 H ALT 62 H Alkaline Phosphatase 209 H Total Creatine Kinase 9758 H CK-MB (CK-2) Troponin T C-Reactive Protein Serum Total Protein Total Protein 5.2 L Albumin 2.2 L Wfiba-4-Uacixkfmm Hzmpk-2-Hjbsnknee PEP Interpretation Triglycerides LDL Cholesterol Direct HDL Cholesterol Free T4 PTH Intact Urine WBC (Auto) Urine Creatinine Salicylates Acetaminophen Crossmatch 03/23/19 03/23/19 03/23/19 05:28 05:31 11:33 WBC 29.7 H RBC 3.59 L Hgb 10.1 L Hct 31.1 L MCV MCH MCHC RDW 15.4 H Plt Count 47 L Lymph % (Auto) Amelia % (Auto) Eos % (Auto) Lymph # Amelia # Eos # Seg Neutrophils % Seg Neuts % (Manual) 89.0 H Lymphocytes % (Manual) 6.0 L Monocytes % (Manual) Eosinophils % (Manual) Nucleated RBC % 1.0 H Seg Neutrophils # Seg Neutrophils # Man 26.4 H Lymphocytes # (Manual) Monocytes # (Manual) Eosinophils # (Manual) PT INR D-Dimer Heparin Anti-Xa Level POC ABG pH ABG pH POC ABG pCO2 POC ABG pO2 ABG pO2 ABG HCO3 ABG O2 Saturation ABG Base Excess ABG Hemoglobin Oxyhemoglobin Sodium Potassium Chloride Carbon Dioxide BUN Creatinine Glucose POC Glucose 122 H 113 H Lactic Acid Calcium Ionized Calcium Phosphorus Magnesium Iron TIBC Ferritin Total Bilirubin Direct Bilirubin AST ALT Alkaline Phosphatase Total Creatine Kinase CK-MB (CK-2) Troponin T C-Reactive Protein Serum Total Protein Total Protein Albumin Eyhjq-0-Ntbhoybgo Epxem-1-Dzrpcjdzj PEP Interpretation Triglycerides LDL Cholesterol Direct HDL Cholesterol Free T4 PTH Intact Urine WBC (Auto) Urine Creatinine Salicylates Acetaminophen Crossmatch 03/23/19 03/24/19 03/24/19 17:47 00:00 04:50 WBC 35.0 H RBC Hgb 10.4 L Hct 32.4 L MCV MCH MCHC RDW Plt Count 60 L Lymph % (Auto) Amelia % (Auto) Eos % (Auto) Lymph # Amelia # Eos # Seg Neutrophils % Seg Neuts % (Manual) 93.0 H Lymphocytes % (Manual) 5.0 L Monocytes % (Manual) Eosinophils % (Manual) Nucleated RBC % 7.0 H Seg Neutrophils # Seg Neutrophils # Man 32.6 H Lymphocytes # (Manual) Monocytes # (Manual) Eosinophils # (Manual) PT INR D-Dimer Heparin Anti-Xa Level POC ABG pH ABG pH POC ABG pCO2 POC ABG pO2 ABG pO2 ABG HCO3 ABG O2 Saturation ABG Base Excess ABG Hemoglobin Oxyhemoglobin Sodium Potassium Chloride Carbon Dioxide BUN Creatinine Glucose POC Glucose 111 H 108 H Lactic Acid Calcium Ionized Calcium Phosphorus Magnesium Iron TIBC Ferritin Total Bilirubin Direct Bilirubin AST ALT Alkaline Phosphatase Total Creatine Kinase CK-MB (CK-2) Troponin T C-Reactive Protein Serum Total Protein Total Protein Albumin Meceg-9-Tyllnehfq Njngx-6-Ntchjbpbd PEP Interpretation Triglycerides LDL Cholesterol Direct HDL Cholesterol Free T4 PTH Intact Urine WBC (Auto) Urine Creatinine Salicylates Acetaminophen Crossmatch 03/24/19 03/24/19 03/24/19 04:50 05:06 12:55 WBC RBC Hgb Hct MCV MCH MCHC RDW Plt Count Lymph % (Auto) Amelia % (Auto) Eos % (Auto) Lymph # Amelia # Eos # Seg Neutrophils % Seg Neuts % (Manual) Lymphocytes % (Manual) Monocytes % (Manual) Eosinophils % (Manual) Nucleated RBC % Seg Neutrophils # Seg Neutrophils # Man Lymphocytes # (Manual) Monocytes # (Manual) Eosinophils # (Manual) PT INR D-Dimer Heparin Anti-Xa Level POC ABG pH ABG pH POC ABG pCO2 POC ABG pO2 ABG pO2 ABG HCO3 ABG O2 Saturation ABG Base Excess ABG Hemoglobin Oxyhemoglobin Sodium 134 L Potassium 5.1 H Chloride 95.3 L Carbon Dioxide 21 L BUN 85 H Creatinine 6.4 H Glucose 109 H POC Glucose 112 H 110 H Lactic Acid Calcium 5.8 L* Ionized Calcium Phosphorus Magnesium Iron TIBC Ferritin Total Bilirubin Direct Bilirubin AST ALT Alkaline Phosphatase Total Creatine Kinase 5747 H CK-MB (CK-2) Troponin T C-Reactive Protein Serum Total Protein Total Protein Albumin Lobrn-7-Apufiabkn Sfrir-6-Clpmvzent PEP Interpretation Triglycerides LDL Cholesterol Direct HDL Cholesterol Free T4 PTH Intact Urine WBC (Auto) Urine Creatinine Salicylates Acetaminophen Crossmatch 03/24/19 03/25/19 03/25/19 23:29 05:00 05:00 WBC RBC Hgb Hct MCV MCH MCHC RDW Plt Count Lymph % (Auto) Amelia % (Auto) Eos % (Auto) Lymph # Amelia # Eos # Seg Neutrophils % Seg Neuts % (Manual) Lymphocytes % (Manual) Monocytes % (Manual) Eosinophils % (Manual) Nucleated RBC % Seg Neutrophils # Seg Neutrophils # Man Lymphocytes # (Manual) Monocytes # (Manual) Eosinophils # (Manual) PT INR D-Dimer Heparin Anti-Xa Level POC ABG pH ABG pH POC ABG pCO2 POC ABG pO2 ABG pO2 ABG HCO3 ABG O2 Saturation ABG Base Excess ABG Hemoglobin Oxyhemoglobin Sodium 133 L Potassium Chloride 94.0 L Carbon Dioxide 21 L BUN 81 H Creatinine 6.4 H Glucose POC Glucose 109 H Lactic Acid Calcium 5.5 L* Ionized Calcium Phosphorus Magnesium Iron TIBC Ferritin Total Bilirubin Direct Bilirubin AST 80 H ALT Alkaline Phosphatase 202 H Total Creatine Kinase 3589 H CK-MB (CK-2) Troponin T C-Reactive Protein Serum Total Protein Total Protein 5.3 L Albumin 2.4 L Glhkv-7-Uknlsszvu Euwvu-7-Rcdnkisyf PEP Interpretation Triglycerides LDL Cholesterol Direct HDL Cholesterol Free T4 PTH Intact 329.9 H Urine WBC (Auto) Urine Creatinine Salicylates Acetaminophen Crossmatch 03/25/19 03/25/19 03/26/19 05:00 06:30 04:30 WBC 23.3 H RBC 3.61 L Hgb 10.2 L Hct 31.2 L MCV MCH MCHC RDW Plt Count 57 L Lymph % (Auto) Amelia % (Auto) Eos % (Auto) Lymph # Amelia # Eos # Seg Neutrophils % Seg Neuts % (Manual) 92.0 H Lymphocytes % (Manual) 6.0 L Monocytes % (Manual) Eosinophils % (Manual) Nucleated RBC % Seg Neutrophils # Seg Neutrophils # Man 21.4 H Lymphocytes # (Manual) Monocytes # (Manual) Eosinophils # (Manual) PT INR D-Dimer Heparin Anti-Xa Level POC ABG pH ABG pH 7.326 L POC ABG pCO2 POC ABG pO2 ABG pO2 109.5 H 137.4 H ABG HCO3 18.8 L 18.6 L ABG O2 Saturation ABG Base Excess -4.4 L -6.8 L ABG Hemoglobin 10.1 L 9.9 L Oxyhemoglobin Sodium Potassium Chloride Carbon Dioxide BUN Creatinine Glucose POC Glucose Lactic Acid Calcium Ionized Calcium Phosphorus Magnesium Iron TIBC Ferritin Total Bilirubin Direct Bilirubin AST ALT Alkaline Phosphatase Total Creatine Kinase CK-MB (CK-2) Troponin T C-Reactive Protein Serum Total Protein Total Protein Albumin Cesnh-8-Zfapfxrgb Hygjx-7-Bplfvrejw PEP Interpretation Triglycerides LDL Cholesterol Direct HDL Cholesterol Free T4 PTH Intact Urine WBC (Auto) Urine Creatinine Salicylates Acetaminophen Crossmatch 03/26/19 03/26/19 03/26/19 23:22 Unknown Unknown WBC 19.5 H RBC 3.44 L Hgb 9.8 L Hct 29.9 L MCV MCH MCHC RDW Plt Count 85 L Lymph % (Auto) Amelia % (Auto) Eos % (Auto) Lymph # Amelia # Eos # Seg Neutrophils % Seg Neuts % (Manual) 95.0 H Lymphocytes % (Manual) 3.0 L Monocytes % (Manual) Eosinophils % (Manual) Nucleated RBC % Seg Neutrophils # Seg Neutrophils # Man 18.5 H Lymphocytes # (Manual) 0.6 L Monocytes # (Manual) Eosinophils # (Manual) PT INR D-Dimer Heparin Anti-Xa Level POC ABG pH ABG pH POC ABG pCO2 POC ABG pO2 ABG pO2 ABG HCO3 ABG O2 Saturation ABG Base Excess ABG Hemoglobin Oxyhemoglobin Sodium 135 L Potassium 5.2 H D Chloride 92.2 L Carbon Dioxide 18 L BUN 109 H Creatinine 8.5 H Glucose 117 H POC Glucose 69 L Lactic Acid Calcium 4.5 L* D Ionized Calcium Phosphorus Magnesium Iron TIBC Ferritin Total Bilirubin Direct Bilirubin AST ALT Alkaline Phosphatase Total Creatine Kinase 4527 H CK-MB (CK-2) Troponin T C-Reactive Protein Serum Total Protein Total Protein Albumin Wmjno-4-Huvlidjgf Kdksb-9-Skxnbeqvq PEP Interpretation Triglycerides LDL Cholesterol Direct HDL Cholesterol Free T4 PTH Intact Urine WBC (Auto) Urine Creatinine Salicylates Acetaminophen Crossmatch 03/27/19 03/27/19 03/27/19 04:30 04:30 09:00 WBC 19.2 H RBC 3.42 L Hgb 9.9 L Hct 30.0 L MCV MCH MCHC RDW Plt Count 84 L Lymph % (Auto) Amelia % (Auto) Eos % (Auto) Lymph # Amelia # Eos # Seg Neutrophils % Seg Neuts % (Manual) Lymphocytes % (Manual) Monocytes % (Manual) Eosinophils % (Manual) Nucleated RBC % Seg Neutrophils # Seg Neutrophils # Man Lymphocytes # (Manual) Monocytes # (Manual) Eosinophils # (Manual) PT INR D-Dimer Heparin Anti-Xa Level POC ABG pH ABG pH POC ABG pCO2 POC ABG pO2 ABG pO2 ABG HCO3 ABG O2 Saturation ABG Base Excess ABG Hemoglobin Oxyhemoglobin Sodium 135 L Potassium Chloride 93.5 L Carbon Dioxide BUN 84 H Creatinine 7.1 H Glucose POC Glucose Lactic Acid Calcium 5.0 L* Ionized Calcium Phosphorus Magnesium Iron TIBC Ferritin Total Bilirubin Direct Bilirubin AST 78 H ALT Alkaline Phosphatase 135 H Total Creatine Kinase 4677 H CK-MB (CK-2) Troponin T C-Reactive Protein Serum Total Protein Total Protein 4.8 L Albumin 2.3 L Nbeae-5-Uyocehxou Jsxvw-8-Yhcozvyvh PEP Interpretation Triglycerides 409 H LDL Cholesterol Direct HDL Cholesterol Free T4 PTH Intact Urine WBC (Auto) Urine Creatinine Salicylates Acetaminophen Crossmatch 03/27/19 03/27/19 03/27/19 12:37 14:15 14:15 WBC RBC Hgb 9.7 L Hct 29.5 L MCV MCH MCHC RDW Plt Count 87 L Lymph % (Auto) Amelia % (Auto) Eos % (Auto) Lymph # Amelia # Eos # Seg Neutrophils % Seg Neuts % (Manual) Lymphocytes % (Manual) Monocytes % (Manual) Eosinophils % (Manual) Nucleated RBC % Seg Neutrophils # Seg Neutrophils # Man Lymphocytes # (Manual) Monocytes # (Manual) Eosinophils # (Manual) PT 15.9 H INR 1.30 H D-Dimer Heparin Anti-Xa Level POC ABG pH ABG pH POC ABG pCO2 POC ABG pO2 ABG pO2 ABG HCO3 ABG O2 Saturation ABG Base Excess ABG Hemoglobin Oxyhemoglobin Sodium Potassium Chloride Carbon Dioxide BUN Creatinine Glucose POC Glucose 129 H Lactic Acid Calcium Ionized Calcium Phosphorus Magnesium Iron TIBC Ferritin Total Bilirubin Direct Bilirubin AST ALT Alkaline Phosphatase Total Creatine Kinase CK-MB (CK-2) Troponin T C-Reactive Protein Serum Total Protein Total Protein Albumin Rfjoa-5-Azajqdhdu Rffyb-7-Rsywhztrl PEP Interpretation Triglycerides LDL Cholesterol Direct HDL Cholesterol Free T4 PTH Intact Urine WBC (Auto) Urine Creatinine Salicylates Acetaminophen Crossmatch 03/27/19 03/27/19 03/27/19 18:00 19:22 19:23 WBC RBC Hgb Hct MCV MCH MCHC RDW Plt Count Lymph % (Auto) Amelia % (Auto) Eos % (Auto) Lymph # Amelia # Eos # Seg Neutrophils % Seg Neuts % (Manual) Lymphocytes % (Manual) Monocytes % (Manual) Eosinophils % (Manual) Nucleated RBC % Seg Neutrophils # Seg Neutrophils # Man Lymphocytes # (Manual) Monocytes # (Manual) Eosinophils # (Manual) PT INR D-Dimer Heparin Anti-Xa Level < 0.10 L POC ABG pH ABG pH POC ABG pCO2 POC ABG pO2 ABG pO2 ABG HCO3 ABG O2 Saturation ABG Base Excess ABG Hemoglobin Oxyhemoglobin Sodium Potassium Chloride Carbon Dioxide BUN Creatinine Glucose POC Glucose 121 H Lactic Acid Calcium Ionized Calcium Phosphorus Magnesium Iron TIBC Ferritin Total Bilirubin Direct Bilirubin AST ALT Alkaline Phosphatase Total Creatine Kinase 4517 H CK-MB (CK-2) Troponin T C-Reactive Protein Serum Total Protein Total Protein Albumin Wecaq-3-Gnxskkbud Jisud-3-Cdwtlfusu PEP Interpretation Triglycerides LDL Cholesterol Direct HDL Cholesterol Free T4 PTH Intact Urine WBC (Auto) Urine Creatinine Salicylates Acetaminophen Crossmatch 03/27/19 03/27/19 03/28/19 22:10 23:52 03:49 WBC RBC Hgb Hct MCV MCH MCHC RDW Plt Count Lymph % (Auto) Amelia % (Auto) Eos % (Auto) Lymph # Amelia # Eos # Seg Neutrophils % Seg Neuts % (Manual) Lymphocytes % (Manual) Monocytes % (Manual) Eosinophils % (Manual) Nucleated RBC % Seg Neutrophils # Seg Neutrophils # Man Lymphocytes # (Manual) Monocytes # (Manual) Eosinophils # (Manual) PT INR D-Dimer Heparin Anti-Xa Level POC ABG pH 7.338 L ABG pH POC ABG pCO2 33.1 L POC ABG pO2 ABG pO2 ABG HCO3 ABG O2 Saturation ABG Base Excess ABG Hemoglobin Oxyhemoglobin Sodium Potassium Chloride Carbon Dioxide BUN Creatinine Glucose POC Glucose 113 H 117 H Lactic Acid Calcium Ionized Calcium Phosphorus Magnesium Iron TIBC Ferritin Total Bilirubin Direct Bilirubin AST ALT Alkaline Phosphatase Total Creatine Kinase CK-MB (CK-2) Troponin T C-Reactive Protein Serum Total Protein Total Protein Albumin Mlwts-4-Wbylxhxnn Jlatd-1-Vhohfaswb PEP Interpretation Triglycerides LDL Cholesterol Direct HDL Cholesterol Free T4 PTH Intact Urine WBC (Auto) Urine Creatinine Salicylates Acetaminophen Crossmatch 03/28/19 03/28/19 03/28/19 05:13 05:13 06:18 WBC RBC Hgb Hct MCV MCH MCHC RDW Plt Count Lymph % (Auto) Amelia % (Auto) Eos % (Auto) Lymph # Amelia # Eos # Seg Neutrophils % Seg Neuts % (Manual) Lymphocytes % (Manual) Monocytes % (Manual) Eosinophils % (Manual) Nucleated RBC % Seg Neutrophils # Seg Neutrophils # Man Lymphocytes # (Manual) Monocytes # (Manual) Eosinophils # (Manual) PT INR D-Dimer Heparin Anti-Xa Level 0.23 L POC ABG pH ABG pH POC ABG pCO2 POC ABG pO2 ABG pO2 ABG HCO3 ABG O2 Saturation ABG Base Excess ABG Hemoglobin Oxyhemoglobin Sodium 135 L Potassium 5.5 H D Chloride 95.1 L Carbon Dioxide 16 L D BUN 129 H Creatinine 9.3 H Glucose 158 H POC Glucose 202 H Lactic Acid Calcium 4.0 L* D Ionized Calcium Phosphorus 12.40 H Magnesium Iron TIBC Ferritin Total Bilirubin Direct Bilirubin AST ALT Alkaline Phosphatase Total Creatine Kinase 4266 H CK-MB (CK-2) Troponin T C-Reactive Protein Serum Total Protein Total Protein Albumin Wujwj-4-Tgcykqvci Vjkjz-1-Chppreodk PEP Interpretation Triglycerides LDL Cholesterol Direct HDL Cholesterol Free T4 PTH Intact Urine WBC (Auto) Urine Creatinine Salicylates Acetaminophen Crossmatch 03/28/19 03/28/19 03/28/19 08:25 10:00 12:00 WBC RBC Hgb 4.9 L* D Hct 15.4 L* D MCV MCH MCHC RDW Plt Count Lymph % (Auto) Amelia % (Auto) Eos % (Auto) Lymph # Amelia # Eos # Seg Neutrophils % Seg Neuts % (Manual) Lymphocytes % (Manual) Monocytes % (Manual) Eosinophils % (Manual) Nucleated RBC % Seg Neutrophils # Seg Neutrophils # Man Lymphocytes # (Manual) Monocytes # (Manual) Eosinophils # (Manual) PT 17.9 H INR 1.52 H D-Dimer 4845.98 H Heparin Anti-Xa Level POC ABG pH ABG pH POC ABG pCO2 POC ABG pO2 ABG pO2 ABG HCO3 ABG O2 Saturation ABG Base Excess ABG Hemoglobin Oxyhemoglobin Sodium Potassium Chloride Carbon Dioxide BUN Creatinine Glucose POC Glucose Lactic Acid Calcium Ionized Calcium Phosphorus Magnesium Iron TIBC Ferritin Total Bilirubin Direct Bilirubin AST ALT Alkaline Phosphatase Total Creatine Kinase CK-MB (CK-2) Troponin T C-Reactive Protein Serum Total Protein Total Protein Albumin Iorgz-9-Gefodugng Kuvzu-1-Tdlslejkp PEP Interpretation Triglycerides LDL Cholesterol Direct HDL Cholesterol Free T4 PTH Intact Urine WBC (Auto) Urine Creatinine Salicylates Acetaminophen Crossmatch See Detail 03/28/19 03/28/19 03/28/19 12:28 14:10 17:43 WBC RBC Hgb 5.9 L* Hct 18.3 L* MCV MCH MCHC RDW Plt Count Lymph % (Auto) Amelia % (Auto) Eos % (Auto) Lymph # Amelia # Eos # Seg Neutrophils % Seg Neuts % (Manual) Lymphocytes % (Manual) Monocytes % (Manual) Eosinophils % (Manual) Nucleated RBC % Seg Neutrophils # Seg Neutrophils # Man Lymphocytes # (Manual) Monocytes # (Manual) Eosinophils # (Manual) PT INR D-Dimer Heparin Anti-Xa Level POC ABG pH ABG pH POC ABG pCO2 POC ABG pO2 ABG pO2 ABG HCO3 ABG O2 Saturation ABG Base Excess ABG Hemoglobin Oxyhemoglobin Sodium Potassium Chloride Carbon Dioxide BUN Creatinine Glucose POC Glucose 153 H 159 H Lactic Acid Calcium Ionized Calcium Phosphorus Magnesium Iron TIBC Ferritin Total Bilirubin Direct Bilirubin AST ALT Alkaline Phosphatase Total Creatine Kinase CK-MB (CK-2) Troponin T C-Reactive Protein Serum Total Protein Total Protein Albumin Mbjru-2-Ccynprmcj Zrdfh-6-Gscpeyzto PEP Interpretation Triglycerides LDL Cholesterol Direct HDL Cholesterol Free T4 PTH Intact Urine WBC (Auto) Urine Creatinine Salicylates Acetaminophen Crossmatch 03/28/19 03/28/19 03/28/19 18:10 Unknown 23:59 WBC 24.8 H RBC 3.42 L Hgb 10.2 L D Hct 31.1 L D MCV MCH MCHC RDW 15.4 H Plt Count 54 L Lymph % (Auto) Amelia % (Auto) Eos % (Auto) Lymph # Amelia # Eos # Seg Neutrophils % Seg Neuts % (Manual) 91.0 H Lymphocytes % (Manual) 8.0 L Monocytes % (Manual) Eosinophils % (Manual) Nucleated RBC % Seg Neutrophils # Seg Neutrophils # Man 22.6 H Lymphocytes # (Manual) Monocytes # (Manual) Eosinophils # (Manual) PT INR D-Dimer Heparin Anti-Xa Level POC ABG pH ABG pH POC ABG pCO2 POC ABG pO2 ABG pO2 ABG HCO3 ABG O2 Saturation ABG Base Excess ABG Hemoglobin Oxyhemoglobin Sodium Potassium 5.7 H Chloride Carbon Dioxide BUN Creatinine Glucose POC Glucose 107 H Lactic Acid Calcium Ionized Calcium Phosphorus Magnesium Iron TIBC Ferritin Total Bilirubin Direct Bilirubin AST ALT Alkaline Phosphatase Total Creatine Kinase CK-MB (CK-2) Troponin T C-Reactive Protein Serum Total Protein Total Protein Albumin Nwtbp-2-Ltqnpqjcc Dwsrt-4-Uacorzgzx PEP Interpretation Triglycerides LDL Cholesterol Direct HDL Cholesterol Free T4 PTH Intact Urine WBC (Auto) Urine Creatinine Salicylates Acetaminophen Crossmatch 03/29/19 03/29/19 03/29/19 04:29 05:46 06:22 WBC RBC Hgb 8.6 L Hct 25.7 L MCV MCH MCHC RDW Plt Count 93 L Lymph % (Auto) Amelia % (Auto) Eos % (Auto) Lymph # Amelia # Eos # Seg Neutrophils % Seg Neuts % (Manual) Lymphocytes % (Manual) Monocytes % (Manual) Eosinophils % (Manual) Nucleated RBC % Seg Neutrophils # Seg Neutrophils # Man Lymphocytes # (Manual) Monocytes # (Manual) Eosinophils # (Manual) PT INR D-Dimer Heparin Anti-Xa Level POC ABG pH ABG pH POC ABG pCO2 32.2 L POC ABG pO2 ABG pO2 ABG HCO3 ABG O2 Saturation ABG Base Excess ABG Hemoglobin Oxyhemoglobin Sodium Potassium Chloride Carbon Dioxide BUN Creatinine Glucose POC Glucose 113 H Lactic Acid Calcium Ionized Calcium Phosphorus Magnesium Iron TIBC Ferritin Total Bilirubin Direct Bilirubin AST ALT Alkaline Phosphatase Total Creatine Kinase CK-MB (CK-2) Troponin T C-Reactive Protein Serum Total Protein Total Protein Albumin Bknjg-8-Cktfmkbfr Qxvwn-2-Shnmklaya PEP Interpretation Triglycerides LDL Cholesterol Direct HDL Cholesterol Free T4 PTH Intact Urine WBC (Auto) Urine Creatinine Salicylates Acetaminophen Crossmatch 03/29/19 03/29/19 03/29/19 06:22 06:22 06:22 WBC 23.2 H RBC 2.91 L Hgb 8.6 L Hct 25.8 L MCV MCH MCHC RDW Plt Count 91 L Lymph % (Auto) Amelia % (Auto) Eos % (Auto) Lymph # Amelia # Eos # Seg Neutrophils % Seg Neuts % (Manual) Lymphocytes % (Manual) Monocytes % (Manual) Eosinophils % (Manual) Nucleated RBC % Seg Neutrophils # Seg Neutrophils # Man Lymphocytes # (Manual) Monocytes # (Manual) Eosinophils # (Manual) PT INR D-Dimer Heparin Anti-Xa Level POC ABG pH ABG pH POC ABG pCO2 POC ABG pO2 ABG pO2 ABG HCO3 ABG O2 Saturation ABG Base Excess ABG Hemoglobin Oxyhemoglobin Sodium 133 L Potassium Chloride 93.8 L Carbon Dioxide 18 L BUN 109 H Creatinine 7.4 H Glucose 124 H POC Glucose Lactic Acid Calcium 4.6 L* Ionized Calcium Phosphorus Magnesium Iron TIBC Ferritin Total Bilirubin Direct Bilirubin AST ALT Alkaline Phosphatase Total Creatine Kinase 3401 H CK-MB (CK-2) Troponin T C-Reactive Protein Serum Total Protein Total Protein Albumin Alefk-4-Nghhgzncq Dbici-8-Ximdbfiip PEP Interpretation Triglycerides 309 H LDL Cholesterol Direct HDL Cholesterol Free T4 PTH Intact Urine WBC (Auto) Urine Creatinine Salicylates Acetaminophen Crossmatch 03/29/19 03/29/19 03/29/19 11:48 11:48 18:24 WBC RBC Hgb 7.8 L Hct 23.2 L MCV MCH MCHC RDW Plt Count Lymph % (Auto) Amelia % (Auto) Eos % (Auto) Lymph # Amelia # Eos # Seg Neutrophils % Seg Neuts % (Manual) Lymphocytes % (Manual) Monocytes % (Manual) Eosinophils % (Manual) Nucleated RBC % Seg Neutrophils # Seg Neutrophils # Man Lymphocytes # (Manual) Monocytes # (Manual) Eosinophils # (Manual) PT 15.3 H INR 1.24 H D-Dimer Heparin Anti-Xa Level POC ABG pH ABG pH POC ABG pCO2 POC ABG pO2 ABG pO2 ABG HCO3 ABG O2 Saturation ABG Base Excess ABG Hemoglobin Oxyhemoglobin Sodium Potassium Chloride Carbon Dioxide BUN Creatinine Glucose POC Glucose 122 H Lactic Acid Calcium Ionized Calcium Phosphorus Magnesium Iron TIBC Ferritin Total Bilirubin Direct Bilirubin AST ALT Alkaline Phosphatase Total Creatine Kinase CK-MB (CK-2) Troponin T C-Reactive Protein Serum Total Protein Total Protein Albumin Bruph-0-Spcmtpfei Lpnws-6-Wsifxpavd PEP Interpretation Triglycerides LDL Cholesterol Direct HDL Cholesterol Free T4 PTH Intact Urine WBC (Auto) Urine Creatinine Salicylates Acetaminophen Crossmatch 03/30/19 03/30/19 03/30/19 00:40 04:31 05:04 WBC RBC Hgb 7.6 L Hct 23.0 L MCV MCH MCHC RDW Plt Count Lymph % (Auto) Amelia % (Auto) Eos % (Auto) Lymph # Amelia # Eos # Seg Neutrophils % Seg Neuts % (Manual) Lymphocytes % (Manual) Monocytes % (Manual) Eosinophils % (Manual) Nucleated RBC % Seg Neutrophils # Seg Neutrophils # Man Lymphocytes # (Manual) Monocytes # (Manual) Eosinophils # (Manual) PT INR D-Dimer Heparin Anti-Xa Level POC ABG pH 7.346 L ABG pH POC ABG pCO2 POC ABG pO2 62 L ABG pO2 ABG HCO3 ABG O2 Saturation ABG Base Excess ABG Hemoglobin Oxyhemoglobin Sodium Potassium Chloride Carbon Dioxide BUN 79 H Creatinine 6.4 H Glucose POC Glucose Lactic Acid Calcium 6.1 L D Ionized Calcium Phosphorus Magnesium Iron TIBC Ferritin Total Bilirubin Direct Bilirubin AST ALT Alkaline Phosphatase Total Creatine Kinase CK-MB (CK-2) Troponin T C-Reactive Protein Serum Total Protein Total Protein Albumin Cufaf-5-Debcfdkre Spsjd-0-Syscxddlf PEP Interpretation Triglycerides LDL Cholesterol Direct HDL Cholesterol Free T4 PTH Intact Urine WBC (Auto) Urine Creatinine Salicylates Acetaminophen Crossmatch 03/30/19 03/30/19 03/30/19 08:45 12:09 22:43 WBC 14.3 H RBC 2.33 L Hgb 7.0 L 7.4 L Hct 21.0 L 22.3 L MCV MCH MCHC RDW 15.6 H Plt Count 135 L Lymph % (Auto) Amelia % (Auto) Eos % (Auto) Lymph # Amelia # Eos # Seg Neutrophils % Seg Neuts % (Manual) Lymphocytes % (Manual) Monocytes % (Manual) Eosinophils % (Manual) Nucleated RBC % Seg Neutrophils # Seg Neutrophils # Man Lymphocytes # (Manual) Monocytes # (Manual) Eosinophils # (Manual) PT INR D-Dimer Heparin Anti-Xa Level POC ABG pH ABG pH POC ABG pCO2 POC ABG pO2 ABG pO2 ABG HCO3 ABG O2 Saturation ABG Base Excess ABG Hemoglobin Oxyhemoglobin Sodium Potassium Chloride Carbon Dioxide BUN Creatinine Glucose POC Glucose Lactic Acid Calcium Ionized Calcium 3.7 L Phosphorus Magnesium Iron TIBC Ferritin Total Bilirubin Direct Bilirubin AST ALT Alkaline Phosphatase Total Creatine Kinase CK-MB (CK-2) Troponin T C-Reactive Protein Serum Total Protein Total Protein Albumin Xfjoz-6-Ndxrnrggf Mdqre-5-Wmgmtbfoh PEP Interpretation Triglycerides LDL Cholesterol Direct HDL Cholesterol Free T4 PTH Intact Urine WBC (Auto) Urine Creatinine Salicylates Acetaminophen Crossmatch 03/30/19 03/30/19 03/31/19 23:38 Unknown 04:44 WBC 11.5 H RBC 2.40 L Hgb 7.3 L Hct 21.9 L MCV MCH MCHC RDW 15.4 H Plt Count Lymph % (Auto) 10.6 L Amelia % (Auto) Eos % (Auto) Lymph # Amelia # Eos # Seg Neutrophils % 81.7 H Seg Neuts % (Manual) Lymphocytes % (Manual) Monocytes % (Manual) Eosinophils % (Manual) Nucleated RBC % Seg Neutrophils # 9.4 H Seg Neutrophils # Man Lymphocytes # (Manual) Monocytes # (Manual) Eosinophils # (Manual) PT INR D-Dimer Heparin Anti-Xa Level POC ABG pH ABG pH POC ABG pCO2 POC ABG pO2 ABG pO2 ABG HCO3 ABG O2 Saturation ABG Base Excess ABG Hemoglobin Oxyhemoglobin Sodium Potassium Chloride Carbon Dioxide BUN Creatinine Glucose POC Glucose 155 H Lactic Acid Calcium Ionized Calcium Phosphorus Magnesium Iron TIBC Ferritin Total Bilirubin Direct Bilirubin 0.4 H AST 63 H ALT Alkaline Phosphatase Total Creatine Kinase CK-MB (CK-2) Troponin T C-Reactive Protein Serum Total Protein Total Protein 4.9 L Albumin 2.2 L Qifdp-8-Dxijvgbuf Bfuar-3-Euksjyngy PEP Interpretation Triglycerides LDL Cholesterol Direct HDL Cholesterol Free T4 PTH Intact Urine WBC (Auto) Urine Creatinine Salicylates Acetaminophen Crossmatch 03/31/19 03/31/19 03/31/19 04:44 05:44 08:20 WBC RBC Hgb Hct MCV MCH MCHC RDW Plt Count Lymph % (Auto) Amelia % (Auto) Eos % (Auto) Lymph # Amelia # Eos # Seg Neutrophils % Seg Neuts % (Manual) Lymphocytes % (Manual) Monocytes % (Manual) Eosinophils % (Manual) Nucleated RBC % Seg Neutrophils # Seg Neutrophils # Man Lymphocytes # (Manual) Monocytes # (Manual) Eosinophils # (Manual) PT INR D-Dimer Heparin Anti-Xa Level POC ABG pH ABG pH POC ABG pCO2 53.5 H POC ABG pO2 62 L ABG pO2 ABG HCO3 ABG O2 Saturation ABG Base Excess ABG Hemoglobin Oxyhemoglobin Sodium 135 L Potassium Chloride 96.7 L Carbon Dioxide 19 L BUN 94 H Creatinine 7.8 H Glucose POC Glucose Lactic Acid Calcium 5.3 L* Ionized Calcium Phosphorus 8.20 H Magnesium Iron TIBC Ferritin Total Bilirubin Direct Bilirubin 0.4 H AST 60 H ALT Alkaline Phosphatase Total Creatine Kinase CK-MB (CK-2) Troponin T C-Reactive Protein Serum Total Protein Total Protein 4.8 L Albumin 2.1 L Gbylb-4-Rnnczahcq Dorbp-6-Rkzitfqtk PEP Interpretation Triglycerides LDL Cholesterol Direct HDL Cholesterol Free T4 PTH Intact Urine WBC (Auto) Urine Creatinine Salicylates Acetaminophen Crossmatch 03/31/19 04/01/19 04/01/19 22:14 04:27 04:27 WBC RBC 2.60 L Hgb 8.0 L Hct 24.1 L MCV MCH MCHC RDW 15.7 H Plt Count Lymph % (Auto) 7.9 L Amelia % (Auto) Eos % (Auto) Lymph # 0.7 L Amelia # Eos # Seg Neutrophils % 83.6 H Seg Neuts % (Manual) Lymphocytes % (Manual) Monocytes % (Manual) Eosinophils % (Manual) Nucleated RBC % Seg Neutrophils # Seg Neutrophils # Man Lymphocytes # (Manual) Monocytes # (Manual) Eosinophils # (Manual) PT INR D-Dimer Heparin Anti-Xa Level POC ABG pH 7.286 L ABG pH POC ABG pCO2 54.7 H POC ABG pO2 179 H ABG pO2 ABG HCO3 ABG O2 Saturation ABG Base Excess ABG Hemoglobin Oxyhemoglobin Sodium Potassium Chloride Carbon Dioxide BUN 68 H Creatinine 6.6 H Glucose POC Glucose Lactic Acid Calcium 6.5 L D Ionized Calcium Phosphorus 7.30 H Magnesium Iron TIBC Ferritin Total Bilirubin Direct Bilirubin AST ALT Alkaline Phosphatase Total Creatine Kinase 1652 H CK-MB (CK-2) Troponin T C-Reactive Protein Serum Total Protein Total Protein Albumin Fbmry-7-Ylipallfd Tpkme-8-Szrwgllag PEP Interpretation Triglycerides LDL Cholesterol Direct HDL Cholesterol Free T4 PTH Intact Urine WBC (Auto) Urine Creatinine Salicylates Acetaminophen Crossmatch 04/01/19 04/01/19 04/01/19 05:14 05:37 18:37 WBC RBC Hgb Hct MCV MCH MCHC RDW Plt Count Lymph % (Auto) Amelia % (Auto) Eos % (Auto) Lymph # Amelia # Eos # Seg Neutrophils % Seg Neuts % (Manual) Lymphocytes % (Manual) Monocytes % (Manual) Eosinophils % (Manual) Nucleated RBC % Seg Neutrophils # Seg Neutrophils # Man Lymphocytes # (Manual) Monocytes # (Manual) Eosinophils # (Manual) PT INR D-Dimer Heparin Anti-Xa Level POC ABG pH 7.283 L ABG pH POC ABG pCO2 53.4 H POC ABG pO2 241 H ABG pO2 ABG HCO3 ABG O2 Saturation ABG Base Excess ABG Hemoglobin Oxyhemoglobin Sodium Potassium Chloride Carbon Dioxide BUN Creatinine Glucose POC Glucose 111 H 119 H Lactic Acid Calcium Ionized Calcium Phosphorus Magnesium Iron TIBC Ferritin Total Bilirubin Direct Bilirubin AST ALT Alkaline Phosphatase Total Creatine Kinase CK-MB (CK-2) Troponin T C-Reactive Protein Serum Total Protein Total Protein Albumin Jshoy-7-Etvdeluez Ouckt-4-Dfuzxrsaa PEP Interpretation Triglycerides LDL Cholesterol Direct HDL Cholesterol Free T4 PTH Intact Urine WBC (Auto) Urine Creatinine Salicylates Acetaminophen Crossmatch 04/01/19 04/02/19 04/02/19 21:28 04:40 05:03 WBC RBC 2.36 L Hgb 7.2 L Hct 21.9 L MCV MCH MCHC RDW 16.0 H Plt Count Lymph % (Auto) 10.8 L Amelia % (Auto) Eos % (Auto) Lymph # 0.8 L Amelia # Eos # Seg Neutrophils % 80.3 H Seg Neuts % (Manual) Lymphocytes % (Manual) Monocytes % (Manual) Eosinophils % (Manual) Nucleated RBC % Seg Neutrophils # Seg Neutrophils # Man Lymphocytes # (Manual) Monocytes # (Manual) Eosinophils # (Manual) PT INR D-Dimer Heparin Anti-Xa Level POC ABG pH 7.299 L 7.300 L ABG pH POC ABG pCO2 48.2 H 45.2 H POC ABG pO2 133 H 107 H ABG pO2 ABG HCO3 ABG O2 Saturation ABG Base Excess ABG Hemoglobin Oxyhemoglobin Sodium Potassium Chloride Carbon Dioxide BUN Creatinine Glucose POC Glucose Lactic Acid Calcium Ionized Calcium Phosphorus Magnesium Iron TIBC Ferritin Total Bilirubin Direct Bilirubin AST ALT Alkaline Phosphatase Total Creatine Kinase CK-MB (CK-2) Troponin T C-Reactive Protein Serum Total Protein Total Protein Albumin Muhsg-7-Ujxcnowmr Xbqps-0-Vvdutoivs PEP Interpretation Triglycerides LDL Cholesterol Direct HDL Cholesterol Free T4 PTH Intact Urine WBC (Auto) Urine Creatinine Salicylates Acetaminophen Crossmatch 04/02/19 04/02/19 04/02/19 05:03 05:03 12:15 WBC RBC Hgb 7.4 L Hct 22.6 L MCV MCH MCHC RDW Plt Count Lymph % (Auto) Amelia % (Auto) Eos % (Auto) Lymph # Amelia # Eos # Seg Neutrophils % Seg Neuts % (Manual) Lymphocytes % (Manual) Monocytes % (Manual) Eosinophils % (Manual) Nucleated RBC % Seg Neutrophils # Seg Neutrophils # Man Lymphocytes # (Manual) Monocytes # (Manual) Eosinophils # (Manual) PT INR D-Dimer Heparin Anti-Xa Level POC ABG pH ABG pH POC ABG pCO2 POC ABG pO2 ABG pO2 ABG HCO3 ABG O2 Saturation ABG Base Excess ABG Hemoglobin Oxyhemoglobin Sodium 136 L Potassium Chloride 97.8 L Carbon Dioxide 18 L BUN 82 H Creatinine 8.2 H Glucose POC Glucose Lactic Acid Calcium 6.7 L Ionized Calcium Phosphorus 7.50 H Magnesium Iron 26 L TIBC 138 L Ferritin 607.0 H Total Bilirubin Direct Bilirubin AST ALT Alkaline Phosphatase Total Creatine Kinase CK-MB (CK-2) Troponin T C-Reactive Protein Serum Total Protein Total Protein Albumin Pakqh-9-Kmrfalkas Zgfov-6-Cdabdufxp PEP Interpretation Triglycerides LDL Cholesterol Direct HDL Cholesterol Free T4 PTH Intact Urine WBC (Auto) Urine Creatinine Salicylates Acetaminophen Crossmatch 04/02/19 04/02/19 04/03/19 16:34 17:14 04:18 WBC RBC Hgb Hct MCV MCH MCHC RDW Plt Count Lymph % (Auto) Amelia % (Auto) Eos % (Auto) Lymph # Amelia # Eos # Seg Neutrophils % Seg Neuts % (Manual) Lymphocytes % (Manual) Monocytes % (Manual) Eosinophils % (Manual) Nucleated RBC % Seg Neutrophils # Seg Neutrophils # Man Lymphocytes # (Manual) Monocytes # (Manual) Eosinophils # (Manual) PT INR D-Dimer Heparin Anti-Xa Level POC ABG pH ABG pH POC ABG pCO2 POC ABG pO2 146 H ABG pO2 ABG HCO3 ABG O2 Saturation ABG Base Excess ABG Hemoglobin Oxyhemoglobin Sodium Potassium Chloride Carbon Dioxide BUN Creatinine Glucose POC Glucose 108 H Lactic Acid Calcium Ionized Calcium Phosphorus Magnesium Iron TIBC Ferritin Total Bilirubin Direct Bilirubin AST ALT Alkaline Phosphatase Total Creatine Kinase CK-MB (CK-2) Troponin T C-Reactive Protein Serum Total Protein Total Protein Albumin Kuwnq-8-Hhmxghmkc Mrgmx-9-Vscslufyq PEP Interpretation Triglycerides LDL Cholesterol Direct HDL Cholesterol Free T4 PTH Intact Urine WBC (Auto) Urine Creatinine Salicylates Acetaminophen Crossmatch See Detail 04/03/19 04/03/19 04/03/19 04:25 08:30 18:24 WBC RBC 2.40 L Hgb 7.3 L Hct 21.9 L MCV MCH MCHC RDW Plt Count Lymph % (Auto) Amelia % (Auto) 7.7 H Eos % (Auto) Lymph # 0.9 L Amelia # Eos # Seg Neutrophils % 74.6 H Seg Neuts % (Manual) Lymphocytes % (Manual) Monocytes % (Manual) Eosinophils % (Manual) Nucleated RBC % Seg Neutrophils # Seg Neutrophils # Man Lymphocytes # (Manual) Monocytes # (Manual) Eosinophils # (Manual) PT INR D-Dimer Heparin Anti-Xa Level POC ABG pH ABG pH POC ABG pCO2 POC ABG pO2 ABG pO2 ABG HCO3 ABG O2 Saturation ABG Base Excess ABG Hemoglobin Oxyhemoglobin Sodium 136 L Potassium Chloride 97.0 L Carbon Dioxide BUN 58 H Creatinine 7.3 H Glucose POC Glucose 106 H Lactic Acid Calcium 7.5 L Ionized Calcium Phosphorus 5.80 H D Magnesium Iron TIBC Ferritin Total Bilirubin Direct Bilirubin AST ALT Alkaline Phosphatase Total Creatine Kinase CK-MB (CK-2) Troponin T C-Reactive Protein Serum Total Protein Total Protein Albumin Ucsao-5-Tqgswcleh Sgepy-3-Vchqoqvfi PEP Interpretation Triglycerides LDL Cholesterol Direct HDL Cholesterol Free T4 PTH Intact Urine WBC (Auto) Urine Creatinine Salicylates Acetaminophen Crossmatch 04/03/19 04/04/19 04/04/19 23:43 04:47 04:47 WBC RBC 2.72 L Hgb 8.3 L Hct 24.7 L MCV MCH MCHC RDW 15.6 H Plt Count Lymph % (Auto) Amelia % (Auto) 10.1 H Eos % (Auto) Lymph # 0.8 L Amelia # Eos # Seg Neutrophils % 71.4 H Seg Neuts % (Manual) Lymphocytes % (Manual) Monocytes % (Manual) Eosinophils % (Manual) Nucleated RBC % Seg Neutrophils # Seg Neutrophils # Man Lymphocytes # (Manual) Monocytes # (Manual) Eosinophils # (Manual) PT INR D-Dimer Heparin Anti-Xa Level POC ABG pH ABG pH POC ABG pCO2 POC ABG pO2 ABG pO2 123.8 H ABG HCO3 ABG O2 Saturation ABG Base Excess -3.0 L ABG Hemoglobin 7.9 L Oxyhemoglobin Sodium 134 L Potassium Chloride 97.9 L Carbon Dioxide BUN 64 H Creatinine 8.1 H Glucose POC Glucose Lactic Acid Calcium 7.2 L Ionized Calcium Phosphorus Magnesium Iron TIBC Ferritin Total Bilirubin Direct Bilirubin AST ALT Alkaline Phosphatase Total Creatine Kinase CK-MB (CK-2) Troponin T C-Reactive Protein Serum Total Protein Total Protein Albumin Iexeg-0-Kabbyjhxo Tdegh-6-Elecnween PEP Interpretation Triglycerides LDL Cholesterol Direct HDL Cholesterol Free T4 PTH Intact Urine WBC (Auto) Urine Creatinine Salicylates Acetaminophen Crossmatch 04/04/19 04/04/19 04/04/19 06:07 13:40 18:18 WBC RBC Hgb Hct MCV MCH MCHC RDW Plt Count Lymph % (Auto) Amelia % (Auto) Eos % (Auto) Lymph # Amelia # Eos # Seg Neutrophils % Seg Neuts % (Manual) Lymphocytes % (Manual) Monocytes % (Manual) Eosinophils % (Manual) Nucleated RBC % Seg Neutrophils # Seg Neutrophils # Man Lymphocytes # (Manual) Monocytes # (Manual) Eosinophils # (Manual) PT INR D-Dimer Heparin Anti-Xa Level POC ABG pH ABG pH POC ABG pCO2 POC ABG pO2 ABG pO2 95.9 H ABG HCO3 ABG O2 Saturation ABG Base Excess -3.0 L ABG Hemoglobin 8.5 L Oxyhemoglobin Sodium Potassium Chloride Carbon Dioxide BUN Creatinine Glucose POC Glucose 107 H 107 H Lactic Acid Calcium Ionized Calcium Phosphorus Magnesium Iron TIBC Ferritin Total Bilirubin Direct Bilirubin AST ALT Alkaline Phosphatase Total Creatine Kinase CK-MB (CK-2) Troponin T C-Reactive Protein Serum Total Protein Total Protein Albumin Jyxue-0-Bzsukfykz Uoyfl-7-Ozaiywzks PEP Interpretation Triglycerides LDL Cholesterol Direct HDL Cholesterol Free T4 PTH Intact Urine WBC (Auto) Urine Creatinine Salicylates Acetaminophen Crossmatch 04/04/19 04/05/19 04/05/19 21:22 04:09 04:09 WBC RBC 2.76 L Hgb 8.4 L Hct 25.4 L MCV MCH MCHC RDW 15.8 H Plt Count 133 L Lymph % (Auto) Amelia % (Auto) 9.6 H Eos % (Auto) Lymph # 0.7 L Amelia # Eos # Seg Neutrophils % 72.6 H Seg Neuts % (Manual) Lymphocytes % (Manual) Monocytes % (Manual) Eosinophils % (Manual) Nucleated RBC % Seg Neutrophils # Seg Neutrophils # Man Lymphocytes # (Manual) Monocytes # (Manual) Eosinophils # (Manual) PT INR D-Dimer Heparin Anti-Xa Level POC ABG pH ABG pH POC ABG pCO2 47.2 H POC ABG pO2 137 H ABG pO2 ABG HCO3 ABG O2 Saturation ABG Base Excess ABG Hemoglobin Oxyhemoglobin Sodium 136 L Potassium Chloride Carbon Dioxide BUN 46 H Creatinine 6.7 H Glucose POC Glucose Lactic Acid Calcium 7.7 L Ionized Calcium Phosphorus Magnesium Iron TIBC Ferritin Total Bilirubin Direct Bilirubin AST ALT Alkaline Phosphatase Total Creatine Kinase CK-MB (CK-2) Troponin T C-Reactive Protein Serum Total Protein Total Protein Albumin Xjrcl-7-Httswkymk Odgui-8-Ifgtcrtdy PEP Interpretation Triglycerides LDL Cholesterol Direct HDL Cholesterol Free T4 PTH Intact Urine WBC (Auto) Urine Creatinine Salicylates Acetaminophen Crossmatch 04/05/19 04/05/19 04/05/19 05:28 06:14 16:50 WBC RBC Hgb Hct MCV MCH MCHC RDW Plt Count Lymph % (Auto) Amelia % (Auto) Eos % (Auto) Lymph # Amelia # Eos # Seg Neutrophils % Seg Neuts % (Manual) Lymphocytes % (Manual) Monocytes % (Manual) Eosinophils % (Manual) Nucleated RBC % Seg Neutrophils # Seg Neutrophils # Man Lymphocytes # (Manual) Monocytes # (Manual) Eosinophils # (Manual) PT INR D-Dimer Heparin Anti-Xa Level POC ABG pH ABG pH POC ABG pCO2 POC ABG pO2 67 L ABG pO2 ABG HCO3 ABG O2 Saturation ABG Base Excess ABG Hemoglobin Oxyhemoglobin Sodium Potassium Chloride Carbon Dioxide BUN Creatinine Glucose POC Glucose 108 H Lactic Acid Calcium Ionized Calcium Phosphorus Magnesium Iron TIBC Ferritin Total Bilirubin Direct Bilirubin AST ALT Alkaline Phosphatase Total Creatine Kinase CK-MB (CK-2) Troponin T C-Reactive Protein Serum Total Protein Total Protein Albumin [id number] PEP Interpretation Triglycerides LDL Cholesterol Direct HDL Cholesterol Free T4 PTH Intact Urine WBC (Auto) 40.0 H Urine Creatinine Salicylates Acetaminophen Crossmatch 04/05/19 04/06/19 04/06/19 17:22 00:13 04:44 WBC RBC 2.48 L Hgb 7.5 L Hct 22.9 L MCV MCH MCHC RDW 16.0 H Plt Count 107 L Lymph % (Auto) Amelia % (Auto) 10.7 H Eos % (Auto) Lymph # 1.0 L Amelia # Eos # Seg Neutrophils % Seg Neuts % (Manual) Lymphocytes % (Manual) Monocytes % (Manual) Eosinophils % (Manual) Nucleated RBC % Seg Neutrophils # Seg Neutrophils # Man Lymphocytes # (Manual) Monocytes # (Manual) Eosinophils # (Manual) PT INR D-Dimer Heparin Anti-Xa Level POC ABG pH ABG pH POC ABG pCO2 POC ABG pO2 ABG pO2 ABG HCO3 ABG O2 Saturation ABG Base Excess ABG Hemoglobin Oxyhemoglobin Sodium Potassium Chloride Carbon Dioxide BUN Creatinine Glucose POC Glucose 118 H 138 H Lactic Acid Calcium Ionized Calcium Phosphorus Magnesium Iron TIBC Ferritin Total Bilirubin Direct Bilirubin AST ALT Alkaline Phosphatase Total Creatine Kinase CK-MB (CK-2) Troponin T C-Reactive Protein Serum Total Protein Total Protein Albumin Uflkb-4-Nimhkgcvn Ckcbm-8-Pxpocymrp PEP Interpretation Triglycerides LDL Cholesterol Direct HDL Cholesterol Free T4 PTH Intact Urine WBC (Auto) Urine Creatinine Salicylates Acetaminophen Crossmatch 04/06/19 04/06/19 04/06/19 04:44 05:20 05:23 WBC RBC Hgb Hct MCV MCH MCHC RDW Plt Count Lymph % (Auto) Amelia % (Auto) Eos % (Auto) Lymph # Amelia # Eos # Seg Neutrophils % Seg Neuts % (Manual) Lymphocytes % (Manual) Monocytes % (Manual) Eosinophils % (Manual) Nucleated RBC % Seg Neutrophils # Seg Neutrophils # Man Lymphocytes # (Manual) Monocytes # (Manual) Eosinophils # (Manual) PT INR D-Dimer Heparin Anti-Xa Level POC ABG pH ABG pH POC ABG pCO2 POC ABG pO2 ABG pO2 104.0 H ABG HCO3 ABG O2 Saturation ABG Base Excess -2.1 L ABG Hemoglobin 7.3 L Oxyhemoglobin Sodium Potassium Chloride Carbon Dioxide BUN 64 H Creatinine 8.2 H Glucose 103 H POC Glucose 118 H Lactic Acid Calcium 7.3 L Ionized Calcium Phosphorus Magnesium Iron TIBC Ferritin Total Bilirubin Direct Bilirubin AST ALT Alkaline Phosphatase Total Creatine Kinase CK-MB (CK-2) Troponin T C-Reactive Protein Serum Total Protein Total Protein Albumin Gslus-4-Huqkvdpgc Jslol-2-Efsviscgz PEP Interpretation Triglycerides LDL Cholesterol Direct HDL Cholesterol Free T4 PTH Intact Urine WBC (Auto) Urine Creatinine Salicylates Acetaminophen Crossmatch 04/06/19 04/07/19 04/07/19 12:02 05:40 05:40 WBC RBC 2.59 L Hgb 7.9 L Hct 23.8 L MCV MCH MCHC RDW 15.8 H Plt Count 89 L Lymph % (Auto) Amelia % (Auto) 10.3 H Eos % (Auto) Lymph # 1.1 L Amelia # Eos # Seg Neutrophils % Seg Neuts % (Manual) Lymphocytes % (Manual) Monocytes % (Manual) Eosinophils % (Manual) Nucleated RBC % Seg Neutrophils # Seg Neutrophils # Man Lymphocytes # (Manual) Monocytes # (Manual) Eosinophils # (Manual) PT INR D-Dimer Heparin Anti-Xa Level POC ABG pH ABG pH POC ABG pCO2 POC ABG pO2 ABG pO2 ABG HCO3 ABG O2 Saturation ABG Base Excess ABG Hemoglobin Oxyhemoglobin Sodium 136 L Potassium 3.5 L Chloride Carbon Dioxide BUN 46 H Creatinine 6.2 H Glucose POC Glucose 108 H Lactic Acid Calcium 7.9 L Ionized Calcium Phosphorus Magnesium Iron TIBC Ferritin Total Bilirubin Direct Bilirubin AST ALT Alkaline Phosphatase Total Creatine Kinase CK-MB (CK-2) Troponin T C-Reactive Protein Serum Total Protein Total Protein Albumin Wzdta-9-Popguiuds Ssouh-4-Iivmrcxzs PEP Interpretation Triglycerides LDL Cholesterol Direct HDL Cholesterol Free T4 PTH Intact Urine WBC (Auto) Urine Creatinine Salicylates Acetaminophen Crossmatch 04/07/19 04/09/19 04/09/19 12:57 04:28 04:28 WBC RBC 2.85 L Hgb 8.7 L Hct 26.2 L MCV MCH MCHC RDW 15.6 H Plt Count Lymph % (Auto) Amelia % (Auto) 10.4 H Eos % (Auto) Lymph # 1.0 L Amelia # Eos # Seg Neutrophils % 73.3 H Seg Neuts % (Manual) Lymphocytes % (Manual) Monocytes % (Manual) Eosinophils % (Manual) Nucleated RBC % Seg Neutrophils # Seg Neutrophils # Man Lymphocytes # (Manual) Monocytes # (Manual) Eosinophils # (Manual) PT INR D-Dimer Heparin Anti-Xa Level POC ABG pH ABG pH POC ABG pCO2 POC ABG pO2 107 H ABG pO2 ABG HCO3 ABG O2 Saturation ABG Base Excess ABG Hemoglobin Oxyhemoglobin Sodium Potassium 3.5 L Chloride 97.8 L Carbon Dioxide BUN 62 H Creatinine 8.1 H Glucose POC Glucose Lactic Acid Calcium 8.2 L Ionized Calcium Phosphorus 5.10 H Magnesium Iron TIBC Ferritin Total Bilirubin Direct Bilirubin AST ALT Alkaline Phosphatase Total Creatine Kinase CK-MB (CK-2) Troponin T C-Reactive Protein Serum Total Protein Total Protein Albumin Ctntx-2-Ehuhyfigp Tinxa-6-Gcsgysprg PEP Interpretation Triglycerides LDL Cholesterol Direct HDL Cholesterol Free T4 PTH Intact Urine WBC (Auto) Urine Creatinine Salicylates Acetaminophen Crossmatch 04/10/19 04/11/19 04/11/19 18:15 00:25 04:16 WBC 11.5 H RBC 2.91 L Hgb 8.9 L Hct 27.6 L MCV 95 H MCH MCHC RDW 17.5 H Plt Count Lymph % (Auto) Amelia % (Auto) Eos % (Auto) Lymph # Amelia # Eos # Seg Neutrophils % Seg Neuts % (Manual) 71.0 H Lymphocytes % (Manual) Monocytes % (Manual) 8.0 H Eosinophils % (Manual) Nucleated RBC % Seg Neutrophils # Seg Neutrophils # Man 8.2 H Lymphocytes # (Manual) Monocytes # (Manual) 0.9 H Eosinophils # (Manual) PT INR D-Dimer Heparin Anti-Xa Level POC ABG pH ABG pH POC ABG pCO2 POC ABG pO2 ABG pO2 ABG HCO3 ABG O2 Saturation ABG Base Excess ABG Hemoglobin Oxyhemoglobin Sodium Potassium Chloride Carbon Dioxide BUN Creatinine Glucose POC Glucose 109 H 114 H Lactic Acid Calcium Ionized Calcium Phosphorus Magnesium Iron TIBC Ferritin Total Bilirubin Direct Bilirubin AST ALT Alkaline Phosphatase Total Creatine Kinase CK-MB (CK-2) Troponin T C-Reactive Protein Serum Total Protein Total Protein Albumin Vdnbr-9-Tmggovrcy Bhkul-2-Ilstqdjeg PEP Interpretation Triglycerides LDL Cholesterol Direct HDL Cholesterol Free T4 PTH Intact Urine WBC (Auto) Urine Creatinine Salicylates Acetaminophen Crossmatch 04/11/19 04/11/19 04/11/19 06:47 09:21 12:15 WBC RBC Hgb Hct MCV MCH MCHC RDW Plt Count Lymph % (Auto) Amelia % (Auto) Eos % (Auto) Lymph # Amelia # Eos # Seg Neutrophils % Seg Neuts % (Manual) Lymphocytes % (Manual) Monocytes % (Manual) Eosinophils % (Manual) Nucleated RBC % Seg Neutrophils # Seg Neutrophils # Man Lymphocytes # (Manual) Monocytes # (Manual) Eosinophils # (Manual) PT INR D-Dimer Heparin Anti-Xa Level POC ABG pH ABG pH POC ABG pCO2 POC ABG pO2 ABG pO2 ABG HCO3 ABG O2 Saturation ABG Base Excess ABG Hemoglobin Oxyhemoglobin Sodium Potassium 3.5 L Chloride Carbon Dioxide BUN 45 H Creatinine 6.0 H Glucose 113 H POC Glucose 106 H 109 H Lactic Acid Calcium Ionized Calcium Phosphorus Magnesium Iron TIBC Ferritin Total Bilirubin Direct Bilirubin AST ALT Alkaline Phosphatase Total Creatine Kinase CK-MB (CK-2) Troponin T C-Reactive Protein Serum Total Protein Total Protein Albumin Pqtxv-7-Sfpxzbrwm Xhkmz-2-Dywbqvrin PEP Interpretation Triglycerides LDL Cholesterol Direct HDL Cholesterol Free T4 PTH Intact Urine WBC (Auto) Urine Creatinine Salicylates Acetaminophen Crossmatch 04/11/19 04/12/19 04/12/19 18:42 12:13 23:52 WBC RBC Hgb Hct MCV MCH MCHC RDW Plt Count Lymph % (Auto) Amelia % (Auto) Eos % (Auto) Lymph # Amelia # Eos # Seg Neutrophils % Seg Neuts % (Manual) Lymphocytes % (Manual) Monocytes % (Manual) Eosinophils % (Manual) Nucleated RBC % Seg Neutrophils # Seg Neutrophils # Man Lymphocytes # (Manual) Monocytes # (Manual) Eosinophils # (Manual) PT INR D-Dimer Heparin Anti-Xa Level POC ABG pH ABG pH POC ABG pCO2 POC ABG pO2 ABG pO2 ABG HCO3 ABG O2 Saturation ABG Base Excess ABG Hemoglobin Oxyhemoglobin Sodium Potassium Chloride Carbon Dioxide BUN Creatinine Glucose POC Glucose 107 H 115 H 124 H Lactic Acid Calcium Ionized Calcium Phosphorus Magnesium Iron TIBC Ferritin Total Bilirubin Direct Bilirubin AST ALT Alkaline Phosphatase Total Creatine Kinase CK-MB (CK-2) Troponin T C-Reactive Protein Serum Total Protein Total Protein Albumin Lusja-4-Zgqtoikke Eiufz-8-Gajolrjap PEP Interpretation Triglycerides LDL Cholesterol Direct HDL Cholesterol Free T4 PTH Intact Urine WBC (Auto) Urine Creatinine Salicylates Acetaminophen Crossmatch 04/13/19 04/13/19 04/13/19 05:00 05:00 05:47 WBC 11.7 H RBC 2.97 L Hgb 8.8 L Hct 27.3 L MCV MCH MCHC RDW 16.1 H Plt Count Lymph % (Auto) 9.5 L Amelia % (Auto) 9.9 H Eos % (Auto) Lymph # 1.1 L Amelia # 1.2 H Eos # Seg Neutrophils % 78.6 H Seg Neuts % (Manual) Lymphocytes % (Manual) Monocytes % (Manual) Eosinophils % (Manual) Nucleated RBC % Seg Neutrophils # 9.2 H Seg Neutrophils # Man Lymphocytes # (Manual) Monocytes # (Manual) Eosinophils # (Manual) PT INR D-Dimer Heparin Anti-Xa Level POC ABG pH ABG pH POC ABG pCO2 POC ABG pO2 ABG pO2 ABG HCO3 ABG O2 Saturation ABG Base Excess ABG Hemoglobin Oxyhemoglobin Sodium Potassium 3.5 L Chloride Carbon Dioxide BUN 42 H Creatinine 4.6 H Glucose 106 H POC Glucose 107 H Lactic Acid Calcium 10.6 H D Ionized Calcium Phosphorus 5.90 H Magnesium Iron TIBC Ferritin Total Bilirubin Direct Bilirubin AST ALT Alkaline Phosphatase Total Creatine Kinase CK-MB (CK-2) Troponin T C-Reactive Protein Serum Total Protein Total Protein 5.8 L Albumin 2.5 L Eyxtz-3-Jnvxpcdvt Dqonx-9-Phithetiq PEP Interpretation Triglycerides LDL Cholesterol Direct HDL Cholesterol Free T4 PTH Intact Urine WBC (Auto) Urine Creatinine Salicylates Acetaminophen Crossmatch 04/13/19 04/14/19 04/14/19 17:32 00:00 03:55 WBC RBC Hgb Hct MCV MCH MCHC RDW Plt Count Lymph % (Auto) Amelia % (Auto) Eos % (Auto) Lymph # Amelia # Eos # Seg Neutrophils % Seg Neuts % (Manual) Lymphocytes % (Manual) Monocytes % (Manual) Eosinophils % (Manual) Nucleated RBC % Seg Neutrophils # Seg Neutrophils # Man Lymphocytes # (Manual) Monocytes # (Manual) Eosinophils # (Manual) PT INR D-Dimer Heparin Anti-Xa Level POC ABG pH ABG pH POC ABG pCO2 POC ABG pO2 ABG pO2 ABG HCO3 ABG O2 Saturation ABG Base Excess ABG Hemoglobin Oxyhemoglobin Sodium Potassium 3.0 L Chloride Carbon Dioxide BUN 30 H Creatinine 3.1 H Glucose POC Glucose 112 H 120 H Lactic Acid Calcium 10.8 H Ionized Calcium Phosphorus Magnesium Iron TIBC Ferritin Total Bilirubin Direct Bilirubin AST ALT Alkaline Phosphatase Total Creatine Kinase CK-MB (CK-2) Troponin T C-Reactive Protein Serum Total Protein Total Protein Albumin Acdnz-4-Uorgaqyib Qoqcr-5-Aeivaivux PEP Interpretation Triglycerides LDL Cholesterol Direct HDL Cholesterol Free T4 PTH Intact Urine WBC (Auto) Urine Creatinine Salicylates Acetaminophen Crossmatch 04/14/19 04/14/19 04/15/19 11:56 23:28 05:11 WBC 13.0 H RBC 2.93 L Hgb 8.6 L Hct 26.5 L MCV MCH MCHC RDW 16.5 H Plt Count Lymph % (Auto) 12.2 L Amelia % (Auto) 9.1 H Eos % (Auto) Lymph # Amelia # 1.2 H Eos # Seg Neutrophils % 77.6 H Seg Neuts % (Manual) Lymphocytes % (Manual) Monocytes % (Manual) Eosinophils % (Manual) Nucleated RBC % Seg Neutrophils # 10.1 H Seg Neutrophils # Man Lymphocytes # (Manual) Monocytes # (Manual) Eosinophils # (Manual) PT INR D-Dimer Heparin Anti-Xa Level POC ABG pH ABG pH POC ABG pCO2 POC ABG pO2 ABG pO2 ABG HCO3 ABG O2 Saturation ABG Base Excess ABG Hemoglobin Oxyhemoglobin Sodium Potassium Chloride Carbon Dioxide BUN Creatinine Glucose POC Glucose 109 H 112 H Lactic Acid Calcium Ionized Calcium Phosphorus Magnesium Iron TIBC Ferritin Total Bilirubin Direct Bilirubin AST ALT Alkaline Phosphatase Total Creatine Kinase CK-MB (CK-2) Troponin T C-Reactive Protein Serum Total Protein Total Protein Albumin Tcpzk-7-Scamdrqkm Whuko-4-Xjxnmntvs PEP Interpretation Triglycerides LDL Cholesterol Direct HDL Cholesterol Free T4 PTH Intact Urine WBC (Auto) Urine Creatinine Salicylates Acetaminophen Crossmatch 04/15/19 04/15/19 04/15/19 05:11 05:31 18:03 WBC RBC Hgb Hct MCV MCH MCHC RDW Plt Count Lymph % (Auto) Amelia % (Auto) Eos % (Auto) Lymph # Amelia # Eos # Seg Neutrophils % Seg Neuts % (Manual) Lymphocytes % (Manual) Monocytes % (Manual) Eosinophils % (Manual) Nucleated RBC % Seg Neutrophils # Seg Neutrophils # Man Lymphocytes # (Manual) Monocytes # (Manual) Eosinophils # (Manual) PT INR D-Dimer Heparin Anti-Xa Level POC ABG pH ABG pH POC ABG pCO2 POC ABG pO2 ABG pO2 ABG HCO3 ABG O2 Saturation ABG Base Excess ABG Hemoglobin Oxyhemoglobin Sodium Potassium 3.2 L Chloride Carbon Dioxide BUN 44 H Creatinine 3.6 H Glucose 106 H POC Glucose 110 H 121 H Lactic Acid Calcium 12.0 H Ionized Calcium Phosphorus 5.00 H Magnesium Iron TIBC Ferritin Total Bilirubin Direct Bilirubin AST ALT Alkaline Phosphatase Total Creatine Kinase CK-MB (CK-2) Troponin T C-Reactive Protein Serum Total Protein Total Protein Albumin Rbtkr-5-Yoaxxpare Hlqvk-5-Mzrrogosr PEP Interpretation Triglycerides LDL Cholesterol Direct HDL Cholesterol Free T4 PTH Intact Urine WBC (Auto) Urine Creatinine Salicylates Acetaminophen Crossmatch 04/16/19 04/16/19 04/17/19 05:07 05:07 04:15 WBC 12.6 H RBC 3.12 L Hgb 9.0 L Hct 28.2 L MCV MCH MCHC RDW 16.6 H Plt Count Lymph % (Auto) 10.3 L Amelia % (Auto) 9.8 H Eos % (Auto) Lymph # Amelia # 1.2 H Eos # Seg Neutrophils % 78.2 H Seg Neuts % (Manual) Lymphocytes % (Manual) Monocytes % (Manual) Eosinophils % (Manual) Nucleated RBC % Seg Neutrophils # 9.9 H Seg Neutrophils # Man Lymphocytes # (Manual) Monocytes # (Manual) Eosinophils # (Manual) PT INR D-Dimer Heparin Anti-Xa Level POC ABG pH ABG pH POC ABG pCO2 POC ABG pO2 ABG pO2 ABG HCO3 ABG O2 Saturation ABG Base Excess ABG Hemoglobin Oxyhemoglobin Sodium 147 H 150 H Potassium 3.5 L 3.1 L Chloride Carbon Dioxide 32 H BUN 54 H 65 H Creatinine 3.8 H 4.0 H Glucose 102 H 107 H POC Glucose Lactic Acid Calcium 11.7 H 12.0 H Ionized Calcium Phosphorus 5.40 H Magnesium Iron TIBC Ferritin Total Bilirubin Direct Bilirubin AST ALT Alkaline Phosphatase Total Creatine Kinase CK-MB (CK-2) Troponin T C-Reactive Protein 7.10 H Serum Total Protein Total Protein Albumin Hbept-3-Ttgyvmmra Flkql-1-Nveozbnic PEP Interpretation Triglycerides LDL Cholesterol Direct HDL Cholesterol Free T4 PTH Intact Urine WBC (Auto) Urine Creatinine Salicylates Acetaminophen Crossmatch 04/17/19 04/17/19 04/17/19 04:15 06:05 12:49 WBC 15.8 H RBC 3.32 L Hgb 9.5 L Hct 29.9 L MCV MCH MCHC RDW 16.9 H Plt Count Lymph % (Auto) 12.6 L Amelia % (Auto) 11.1 H Eos % (Auto) Lymph # Amelia # 1.7 H Eos # Seg Neutrophils % 74.7 H Seg Neuts % (Manual) Lymphocytes % (Manual) Monocytes % (Manual) Eosinophils % (Manual) Nucleated RBC % Seg Neutrophils # 11.8 H Seg Neutrophils # Man Lymphocytes # (Manual) Monocytes # (Manual) Eosinophils # (Manual) PT INR D-Dimer Heparin Anti-Xa Level POC ABG pH ABG pH POC ABG pCO2 POC ABG pO2 ABG pO2 ABG HCO3 ABG O2 Saturation ABG Base Excess ABG Hemoglobin Oxyhemoglobin Sodium Potassium Chloride Carbon Dioxide BUN Creatinine Glucose POC Glucose 111 H 108 H Lactic Acid Calcium Ionized Calcium Phosphorus Magnesium Iron TIBC Ferritin Total Bilirubin Direct Bilirubin AST ALT Alkaline Phosphatase Total Creatine Kinase CK-MB (CK-2) Troponin T C-Reactive Protein Serum Total Protein Total Protein Albumin Igqod-5-Fgpmzzjxq Ugklw-6-Zcrclqvry PEP Interpretation Triglycerides LDL Cholesterol Direct HDL Cholesterol Free T4 PTH Intact Urine WBC (Auto) Urine Creatinine Salicylates Acetaminophen Crossmatch 04/18/19 04/18/19 04/18/19 00:23 04:41 04:41 WBC 19.4 H RBC 3.03 L Hgb 8.6 L Hct 27.5 L MCV MCH MCHC 31 L RDW 16.9 H Plt Count Lymph % (Auto) Amelia % (Auto) Eos % (Auto) Lymph # Amelia # Eos # Seg Neutrophils % Seg Neuts % (Manual) Lymphocytes % (Manual) Monocytes % (Manual) Eosinophils % (Manual) Nucleated RBC % Seg Neutrophils # Seg Neutrophils # Man Lymphocytes # (Manual) Monocytes # (Manual) Eosinophils # (Manual) PT INR D-Dimer Heparin Anti-Xa Level POC ABG pH ABG pH POC ABG pCO2 POC ABG pO2 ABG pO2 ABG HCO3 ABG O2 Saturation ABG Base Excess ABG Hemoglobin Oxyhemoglobin Sodium 152 H Potassium 3.0 L Chloride Carbon Dioxide BUN 80 H Creatinine 4.3 H Glucose 103 H POC Glucose 115 H Lactic Acid Calcium 11.4 H Ionized Calcium Phosphorus Magnesium Iron TIBC Ferritin Total Bilirubin Direct Bilirubin AST ALT Alkaline Phosphatase Total Creatine Kinase CK-MB (CK-2) Troponin T C-Reactive Protein Serum Total Protein Total Protein Albumin Dqhxs-2-Vcdvydqkg Iybdz-3-Gcljwwcxn PEP Interpretation Triglycerides LDL Cholesterol Direct HDL Cholesterol Free T4 PTH Intact Urine WBC (Auto) Urine Creatinine Salicylates Acetaminophen Crossmatch 04/18/19 04/18/19 04/18/19 06:17 12:16 18:10 WBC RBC Hgb Hct MCV MCH MCHC RDW Plt Count Lymph % (Auto) Amelia % (Auto) Eos % (Auto) Lymph # Amelia # Eos # Seg Neutrophils % Seg Neuts % (Manual) Lymphocytes % (Manual) Monocytes % (Manual) Eosinophils % (Manual) Nucleated RBC % Seg Neutrophils # Seg Neutrophils # Man Lymphocytes # (Manual) Monocytes # (Manual) Eosinophils # (Manual) PT INR D-Dimer Heparin Anti-Xa Level POC ABG pH ABG pH POC ABG pCO2 POC ABG pO2 ABG pO2 ABG HCO3 ABG O2 Saturation ABG Base Excess ABG Hemoglobin Oxyhemoglobin Sodium Potassium Chloride Carbon Dioxide BUN Creatinine Glucose POC Glucose 124 H 119 H 111 H Lactic Acid Calcium Ionized Calcium Phosphorus Magnesium Iron TIBC Ferritin Total Bilirubin Direct Bilirubin AST ALT Alkaline Phosphatase Total Creatine Kinase CK-MB (CK-2) Troponin T C-Reactive Protein Serum Total Protein Total Protein Albumin Vqdye-6-Tadhsawnk Zdmrt-5-Gaxfsooam PEP Interpretation Triglycerides LDL Cholesterol Direct HDL Cholesterol Free T4 PTH Intact Urine WBC (Auto) Urine Creatinine Salicylates Acetaminophen Crossmatch 04/19/19 04/19/19 04/20/19 03:49 05:27 09:09 WBC RBC Hgb Hct MCV MCH MCHC RDW Plt Count Lymph % (Auto) Amelia % (Auto) Eos % (Auto) Lymph # Amelia # Eos # Seg Neutrophils % Seg Neuts % (Manual) Lymphocytes % (Manual) Monocytes % (Manual) Eosinophils % (Manual) Nucleated RBC % Seg Neutrophils # Seg Neutrophils # Man Lymphocytes # (Manual) Monocytes # (Manual) Eosinophils # (Manual) PT INR D-Dimer Heparin Anti-Xa Level POC ABG pH ABG pH POC ABG pCO2 POC ABG pO2 ABG pO2 ABG HCO3 ABG O2 Saturation ABG Base Excess ABG Hemoglobin Oxyhemoglobin Sodium 147 H 150 H Potassium 3.3 L Chloride 108.9 H Carbon Dioxide BUN 45 H 70 H Creatinine 2.9 H 4.1 H Glucose 105 H POC Glucose 124 H Lactic Acid Calcium 10.6 H 11.6 H Ionized Calcium Phosphorus Magnesium Iron TIBC Ferritin Total Bilirubin Direct Bilirubin AST ALT Alkaline Phosphatase Total Creatine Kinase CK-MB (CK-2) Troponin T C-Reactive Protein Serum Total Protein Total Protein Albumin Dhfss-9-Fqrrbvijm Zhcuu-6-Dcqunppvq PEP Interpretation Triglycerides LDL Cholesterol Direct HDL Cholesterol Free T4 PTH Intact Urine WBC (Auto) Urine Creatinine Salicylates Acetaminophen Crossmatch 04/20/19 04/20/19 04/21/19 12:29 18:45 01:34 WBC RBC Hgb Hct MCV MCH MCHC RDW Plt Count Lymph % (Auto) Amelia % (Auto) Eos % (Auto) Lymph # Amelia # Eos # Seg Neutrophils % Seg Neuts % (Manual) Lymphocytes % (Manual) Monocytes % (Manual) Eosinophils % (Manual) Nucleated RBC % Seg Neutrophils # Seg Neutrophils # Man Lymphocytes # (Manual) Monocytes # (Manual) Eosinophils # (Manual) PT INR D-Dimer Heparin Anti-Xa Level POC ABG pH ABG pH POC ABG pCO2 POC ABG pO2 ABG pO2 ABG HCO3 ABG O2 Saturation ABG Base Excess ABG Hemoglobin Oxyhemoglobin Sodium Potassium Chloride Carbon Dioxide BUN 40 H Creatinine 2.6 H Glucose 104 H POC Glucose 131 H 134 H Lactic Acid Calcium 11.0 H Ionized Calcium Phosphorus Magnesium Iron TIBC Ferritin Total Bilirubin Direct Bilirubin AST ALT Alkaline Phosphatase Total Creatine Kinase CK-MB (CK-2) Troponin T C-Reactive Protein Serum Total Protein Total Protein Albumin Qnkut-1-Udvwapvtl Wufzh-2-Kvnwazkrk PEP Interpretation Triglycerides LDL Cholesterol Direct HDL Cholesterol Free T4 PTH Intact Urine WBC (Auto) Urine Creatinine Salicylates Acetaminophen Crossmatch 04/21/19 04/21/19 04/22/19 04:22 04:22 04:24 WBC 14.2 H 14.3 H RBC 3.02 L 3.57 L Hgb 8.7 L 10.1 L Hct 27.2 L 32.1 L MCV MCH MCHC RDW 16.7 H 17.2 H Plt Count Lymph % (Auto) Amelia % (Auto) Eos % (Auto) Lymph # Amelia # Eos # Seg Neutrophils % Seg Neuts % (Manual) Lymphocytes % (Manual) Monocytes % (Manual) Eosinophils % (Manual) Nucleated RBC % Seg Neutrophils # Seg Neutrophils # Man Lymphocytes # (Manual) Monocytes # (Manual) Eosinophils # (Manual) PT INR D-Dimer Heparin Anti-Xa Level POC ABG pH ABG pH POC ABG pCO2 POC ABG pO2 ABG pO2 ABG HCO3 ABG O2 Saturation ABG Base Excess ABG Hemoglobin Oxyhemoglobin Sodium Potassium Chloride Carbon Dioxide BUN Creatinine Glucose POC Glucose Lactic Acid Calcium Ionized Calcium Phosphorus Magnesium Iron TIBC Ferritin Total Bilirubin Direct Bilirubin AST ALT Alkaline Phosphatase Total Creatine Kinase CK-MB (CK-2) Troponin T C-Reactive Protein Serum Total Protein 5.7 L Total Protein Albumin 2.3 L Zawzk-8-Gjmohqzwy 0.5 H Tcmiw-1-Vqmrvhrxq 1.0 H PEP Interpretation see below H Triglycerides LDL Cholesterol Direct HDL Cholesterol Free T4 PTH Intact Urine WBC (Auto) Urine Creatinine Salicylates Acetaminophen Crossmatch 04/22/19 04/22/19 04/22/19 04:24 06:37 11:57 WBC RBC Hgb Hct MCV MCH MCHC RDW Plt Count Lymph % (Auto) Amelia % (Auto) Eos % (Auto) Lymph # Amelia # Eos # Seg Neutrophils % Seg Neuts % (Manual) Lymphocytes % (Manual) Monocytes % (Manual) Eosinophils % (Manual) Nucleated RBC % Seg Neutrophils # Seg Neutrophils # Man Lymphocytes # (Manual) Monocytes # (Manual) Eosinophils # (Manual) PT INR D-Dimer Heparin Anti-Xa Level POC ABG pH ABG pH POC ABG pCO2 POC ABG pO2 ABG pO2 ABG HCO3 ABG O2 Saturation ABG Base Excess ABG Hemoglobin Oxyhemoglobin Sodium Potassium Chloride Carbon Dioxide BUN 54 H Creatinine 3.5 H Glucose POC Glucose 113 H 110 H Lactic Acid Calcium 11.4 H Ionized Calcium Phosphorus Magnesium Iron TIBC Ferritin Total Bilirubin Direct Bilirubin AST ALT Alkaline Phosphatase Total Creatine Kinase CK-MB (CK-2) Troponin T C-Reactive Protein Serum Total Protein Total Protein Albumin Axzru-4-Yuimbbqiq Lrwbd-4-Ruzyldwhl PEP Interpretation Triglycerides LDL Cholesterol Direct HDL Cholesterol Free T4 PTH Intact Urine WBC (Auto) Urine Creatinine Salicylates Acetaminophen Crossmatch 04/22/19 04/23/19 04/23/19 18:33 04:06 04:06 WBC 16.1 H RBC 3.36 L Hgb 9.8 L Hct 30.8 L MCV MCH MCHC RDW 17.7 H Plt Count Lymph % (Auto) 9.9 L Amelia % (Auto) Eos % (Auto) Lymph # Amelia # Eos # Seg Neutrophils % 84.2 H Seg Neuts % (Manual) Lymphocytes % (Manual) Monocytes % (Manual) Eosinophils % (Manual) Nucleated RBC % Seg Neutrophils # 13.6 H Seg Neutrophils # Man Lymphocytes # (Manual) Monocytes # (Manual) Eosinophils # (Manual) PT INR D-Dimer Heparin Anti-Xa Level POC ABG pH ABG pH POC ABG pCO2 POC ABG pO2 ABG pO2 ABG HCO3 ABG O2 Saturation ABG Base Excess ABG Hemoglobin Oxyhemoglobin Sodium Potassium Chloride Carbon Dioxide BUN 59 H Creatinine 3.8 H Glucose POC Glucose 120 H Lactic Acid Calcium 12.3 H* Ionized Calcium Phosphorus 5.70 H Magnesium Iron TIBC Ferritin Total Bilirubin Direct Bilirubin AST ALT Alkaline Phosphatase Total Creatine Kinase CK-MB (CK-2) Troponin T C-Reactive Protein Serum Total Protein Total Protein Albumin 3.2 L Hghbb-5-Mresgvjrs Blxtq-2-Zrvsddnjp PEP Interpretation Triglycerides LDL Cholesterol Direct HDL Cholesterol Free T4 PTH Intact Urine WBC (Auto) Urine Creatinine Salicylates Acetaminophen Crossmatch 04/23/19 04/24/19 04/24/19 18:06 04:12 04:12 WBC 18.0 H RBC 3.46 L Hgb 9.8 L Hct 31.2 L MCV MCH MCHC 31 L RDW 17.5 H Plt Count Lymph % (Auto) 11.1 L Amelia % (Auto) Eos % (Auto) Lymph # Amelia # Eos # Seg Neutrophils % 81.9 H Seg Neuts % (Manual) Lymphocytes % (Manual) Monocytes % (Manual) Eosinophils % (Manual) Nucleated RBC % Seg Neutrophils # 14.7 H Seg Neutrophils # Man Lymphocytes # (Manual) Monocytes # (Manual) Eosinophils # (Manual) PT INR D-Dimer Heparin Anti-Xa Level POC ABG pH ABG pH POC ABG pCO2 POC ABG pO2 ABG pO2 ABG HCO3 ABG O2 Saturation ABG Base Excess ABG Hemoglobin Oxyhemoglobin Sodium Potassium Chloride Carbon Dioxide BUN 56 H Creatinine 3.6 H Glucose POC Glucose 124 H Lactic Acid Calcium 12.6 H* Ionized Calcium Phosphorus Magnesium Iron TIBC Ferritin Total Bilirubin Direct Bilirubin AST ALT Alkaline Phosphatase Total Creatine Kinase CK-MB (CK-2) Troponin T C-Reactive Protein Serum Total Protein Total Protein Albumin 3.2 L Umies-5-Otaaifolh Ltszy-6-Nxzcpmijn PEP Interpretation Triglycerides LDL Cholesterol Direct HDL Cholesterol Free T4 PTH Intact Urine WBC (Auto) Urine Creatinine Salicylates Acetaminophen Crossmatch 04/24/19 04/24/19 04/25/19 06:21 11:47 05:58 WBC 18.0 H RBC 2.98 L Hgb 8.3 L Hct 26.5 L MCV MCH MCHC 31 L RDW 17.9 H Plt Count Lymph % (Auto) 10.1 L Amelia % (Auto) Eos % (Auto) Lymph # Amelia # 0.9 H Eos # Seg Neutrophils % 82.8 H Seg Neuts % (Manual) Lymphocytes % (Manual) Monocytes % (Manual) Eosinophils % (Manual) Nucleated RBC % Seg Neutrophils # 15.0 H Seg Neutrophils # Man Lymphocytes # (Manual) Monocytes # (Manual) Eosinophils # (Manual) PT INR D-Dimer Heparin Anti-Xa Level POC ABG pH ABG pH POC ABG pCO2 POC ABG pO2 ABG pO2 ABG HCO3 ABG O2 Saturation ABG Base Excess ABG Hemoglobin Oxyhemoglobin Sodium Potassium Chloride Carbon Dioxide BUN Creatinine Glucose POC Glucose 132 H 106 H Lactic Acid Calcium Ionized Calcium Phosphorus Magnesium Iron TIBC Ferritin Total Bilirubin Direct Bilirubin AST ALT Alkaline Phosphatase Total Creatine Kinase CK-MB (CK-2) Troponin T C-Reactive Protein Serum Total Protein Total Protein Albumin Odfep-4-Xyguieewc Xtvzh-2-Dpqdyicqw PEP Interpretation Triglycerides LDL Cholesterol Direct HDL Cholesterol Free T4 PTH Intact Urine WBC (Auto) Urine Creatinine Salicylates Acetaminophen Crossmatch 04/25/19 04/26/19 04/26/19 05:58 05:57 06:08 WBC RBC Hgb Hct MCV MCH MCHC RDW Plt Count Lymph % (Auto) Amelia % (Auto) Eos % (Auto) Lymph # Amelia # Eos # Seg Neutrophils % Seg Neuts % (Manual) Lymphocytes % (Manual) Monocytes % (Manual) Eosinophils % (Manual) Nucleated RBC % Seg Neutrophils # Seg Neutrophils # Man Lymphocytes # (Manual) Monocytes # (Manual) Eosinophils # (Manual) PT INR D-Dimer Heparin Anti-Xa Level POC ABG pH ABG pH POC ABG pCO2 POC ABG pO2 ABG pO2 ABG HCO3 ABG O2 Saturation ABG Base Excess ABG Hemoglobin Oxyhemoglobin Sodium Potassium 3.2 L Chloride Carbon Dioxide BUN 52 H 48 H Creatinine 3.2 H 2.9 H Glucose 108 H 112 H POC Glucose 109 H Lactic Acid Calcium 11.4 H 12.5 H* Ionized Calcium Phosphorus 5.90 H Magnesium Iron TIBC Ferritin Total Bilirubin Direct Bilirubin AST ALT Alkaline Phosphatase Total Creatine Kinase CK-MB (CK-2) Troponin T C-Reactive Protein Serum Total Protein Total Protein Albumin 3.0 L Ikbhm-4-Suhyyhgal Cuczg-6-Jwxegrfka PEP Interpretation Triglycerides LDL Cholesterol Direct HDL Cholesterol Free T4 PTH Intact Urine WBC (Auto) Urine Creatinine Salicylates Acetaminophen Crossmatch 04/26/19 04/26/19 04/27/19 07:22 13:39 05:05 WBC 11.9 H RBC 3.01 L Hgb 8.6 L Hct 26.3 L MCV MCH MCHC RDW 17.6 H Plt Count Lymph % (Auto) 11.9 L Amelia % (Auto) Eos % (Auto) Lymph # Amelia # Eos # Seg Neutrophils % 78.3 H Seg Neuts % (Manual) Lymphocytes % (Manual) Monocytes % (Manual) Eosinophils % (Manual) Nucleated RBC % Seg Neutrophils # 9.4 H Seg Neutrophils # Man Lymphocytes # (Manual) Monocytes # (Manual) Eosinophils # (Manual) PT INR D-Dimer Heparin Anti-Xa Level POC ABG pH ABG pH POC ABG pCO2 POC ABG pO2 ABG pO2 ABG HCO3 ABG O2 Saturation ABG Base Excess ABG Hemoglobin Oxyhemoglobin Sodium Potassium Chloride Carbon Dioxide BUN 46 H Creatinine 2.8 H Glucose POC Glucose Lactic Acid Calcium > 13.0 H* 12.2 H* Ionized Calcium Phosphorus Magnesium Iron TIBC Ferritin Total Bilirubin Direct Bilirubin AST ALT Alkaline Phosphatase Total Creatine Kinase CK-MB (CK-2) Troponin T C-Reactive Protein Serum Total Protein Total Protein Albumin Mbsji-9-Syffgtobv Phoig-6-Gphkuvucj PEP Interpretation Triglycerides LDL Cholesterol Direct HDL Cholesterol Free T4 PTH Intact Urine WBC (Auto) Urine Creatinine Salicylates Acetaminophen Crossmatch 04/27/19 04/28/19 04/29/19 05:05 05:17 14:14 WBC RBC Hgb Hct MCV MCH MCHC RDW Plt Count Lymph % (Auto) Amelia % (Auto) Eos % (Auto) Lymph # Amelia # Eos # Seg Neutrophils % Seg Neuts % (Manual) Lymphocytes % (Manual) Monocytes % (Manual) Eosinophils % (Manual) Nucleated RBC % Seg Neutrophils # Seg Neutrophils # Man Lymphocytes # (Manual) Monocytes # (Manual) Eosinophils # (Manual) PT INR D-Dimer Heparin Anti-Xa Level POC ABG pH ABG pH POC ABG pCO2 POC ABG pO2 ABG pO2 ABG HCO3 ABG O2 Saturation ABG Base Excess ABG Hemoglobin Oxyhemoglobin Sodium 136 L Potassium 3.2 L 3.4 L Chloride Carbon Dioxide BUN 40 H 34 H 33 H Creatinine 2.5 H 2.0 H 1.9 H Glucose 113 H 107 H POC Glucose Lactic Acid Calcium 12.3 H* 12.1 H* 11.5 H Ionized Calcium Phosphorus Magnesium Iron TIBC Ferritin Total Bilirubin Direct Bilirubin AST ALT Alkaline Phosphatase Total Creatine Kinase CK-MB (CK-2) Troponin T C-Reactive Protein Serum Total Protein Total Protein 6.2 L Albumin 2.8 L Jbwiv-2-Hnyelgnvv Pjcjt-9-Tggnlvxte PEP Interpretation Triglycerides LDL Cholesterol Direct HDL Cholesterol Free T4 PTH Intact Urine WBC (Auto) Urine Creatinine Salicylates Acetaminophen Crossmatch 04/29/19 04/29/19 04/30/19 14:14 14:14 06:47 WBC RBC Hgb Hct MCV MCH MCHC RDW Plt Count Lymph % (Auto) Amelia % (Auto) Eos % (Auto) Lymph # Amelia # Eos # Seg Neutrophils % Seg Neuts % (Manual) Lymphocytes % (Manual) Monocytes % (Manual) Eosinophils % (Manual) Nucleated RBC % Seg Neutrophils # Seg Neutrophils # Man Lymphocytes # (Manual) Monocytes # (Manual) Eosinophils # (Manual) PT INR D-Dimer Heparin Anti-Xa Level POC ABG pH ABG pH POC ABG pCO2 POC ABG pO2 ABG pO2 ABG HCO3 ABG O2 Saturation ABG Base Excess ABG Hemoglobin Oxyhemoglobin Sodium Potassium 3.2 L Chloride Carbon Dioxide 21 L BUN 26 H Creatinine 1.8 H Glucose POC Glucose Lactic Acid Calcium 10.8 H Ionized Calcium 7.2 H* Phosphorus Magnesium Iron TIBC Ferritin Total Bilirubin Direct Bilirubin AST ALT Alkaline Phosphatase Total Creatine Kinase CK-MB (CK-2) Troponin T C-Reactive Protein Serum Total Protein Total Protein Albumin Yhlxr-3-Uhkevejdf Efloo-2-Ohagslqwp PEP Interpretation Triglycerides LDL Cholesterol Direct HDL Cholesterol Free T4 PTH Intact 8.83 L Urine WBC (Auto) Urine Creatinine Salicylates Acetaminophen Crossmatch 04/30/19 05/01/19 05/01/19 12:17 06:52 06:52 WBC 15.4 H RBC 3.01 L Hgb 8.4 L Hct 26.2 L MCV MCH MCHC RDW 17.0 H Plt Count Lymph % (Auto) 8.4 L Amelia % (Auto) 8.9 H Eos % (Auto) Lymph # Amelia # 1.4 H Eos # 0.5 H Seg Neutrophils % 78.7 H Seg Neuts % (Manual) Lymphocytes % (Manual) Monocytes % (Manual) Eosinophils % (Manual) Nucleated RBC % Seg Neutrophils # 12.1 H Seg Neutrophils # Man Lymphocytes # (Manual) Monocytes # (Manual) Eosinophils # (Manual) PT INR D-Dimer Heparin Anti-Xa Level POC ABG pH ABG pH POC ABG pCO2 POC ABG pO2 ABG pO2 ABG HCO3 ABG O2 Saturation ABG Base Excess ABG Hemoglobin Oxyhemoglobin Sodium Potassium 3.0 L Chloride Carbon Dioxide BUN 22 H Creatinine Glucose POC Glucose 106 H Lactic Acid Calcium 11.2 H Ionized Calcium Phosphorus Magnesium Iron TIBC Ferritin Total Bilirubin Direct Bilirubin AST ALT Alkaline Phosphatase Total Creatine Kinase CK-MB (CK-2) Troponin T C-Reactive Protein Serum Total Protein Total Protein Albumin 3.0 L Eceqa-3-Urfagbqou Ybvrr-6-Oabsplegv PEP Interpretation Triglycerides LDL Cholesterol Direct HDL Cholesterol Free T4 PTH Intact Urine WBC (Auto) Urine Creatinine Salicylates Acetaminophen Crossmatch 05/01/19 05/01/19 05/02/19 06:52 18:40 05:32 WBC RBC Hgb Hct MCV MCH MCHC RDW Plt Count Lymph % (Auto) Amelia % (Auto) Eos % (Auto) Lymph # Amelia # Eos # Seg Neutrophils % Seg Neuts % (Manual) Lymphocytes % (Manual) Monocytes % (Manual) Eosinophils % (Manual) Nucleated RBC % Seg Neutrophils # Seg Neutrophils # Man Lymphocytes # (Manual) Monocytes # (Manual) Eosinophils # (Manual) PT INR D-Dimer Heparin Anti-Xa Level POC ABG pH ABG pH POC ABG pCO2 POC ABG pO2 ABG pO2 ABG HCO3 ABG O2 Saturation ABG Base Excess ABG Hemoglobin Oxyhemoglobin Sodium Potassium Chloride Carbon Dioxide BUN Creatinine Glucose POC Glucose 169 H 109 H Lactic Acid Calcium Ionized Calcium Phosphorus Magnesium Iron TIBC Ferritin Total Bilirubin Direct Bilirubin AST ALT Alkaline Phosphatase Total Creatine Kinase CK-MB (CK-2) Troponin T C-Reactive Protein Serum Total Protein 5.7 L Total Protein Albumin 2.5 L Ysujq-3-Pbhmyzwyh 0.5 H Tdqho-1-Rrlmhcbqz PEP Interpretation see below H Triglycerides LDL Cholesterol Direct HDL Cholesterol Free T4 PTH Intact Urine WBC (Auto) Urine Creatinine Salicylates Acetaminophen Crossmatch 05/02/19 05/02/19 05/02/19 05:57 05:57 11:43 WBC 14.2 H RBC 2.96 L Hgb 8.3 L Hct 26.0 L MCV MCH MCHC RDW 16.8 H Plt Count Lymph % (Auto) Amelia % (Auto) Eos % (Auto) Lymph # Amelia # Eos # Seg Neutrophils % Seg Neuts % (Manual) Lymphocytes % (Manual) Monocytes % (Manual) Eosinophils % (Manual) Nucleated RBC % Seg Neutrophils # Seg Neutrophils # Man Lymphocytes # (Manual) Monocytes # (Manual) Eosinophils # (Manual) PT INR D-Dimer Heparin Anti-Xa Level POC ABG pH ABG pH POC ABG pCO2 POC ABG pO2 ABG pO2 ABG HCO3 ABG O2 Saturation ABG Base Excess ABG Hemoglobin Oxyhemoglobin Sodium 136 L Potassium 3.5 L Chloride Carbon Dioxide BUN 21 H Creatinine Glucose POC Glucose 108 H Lactic Acid Calcium 11.1 H Ionized Calcium Phosphorus Magnesium Iron TIBC Ferritin Total Bilirubin Direct Bilirubin AST ALT Alkaline Phosphatase Total Creatine Kinase CK-MB (CK-2) Troponin T C-Reactive Protein Serum Total Protein Total Protein Albumin Xfwty-9-Jtycfmpyr Bwsjo-3-Axdvozhoa PEP Interpretation Triglycerides LDL Cholesterol Direct HDL Cholesterol Free T4 PTH Intact Urine WBC (Auto) Urine Creatinine Salicylates Acetaminophen Crossmatch 05/03/19 05/03/19 05/04/19 05:37 05:37 06:49 WBC 12.7 H 11.1 H RBC 3.01 L 3.07 L Hgb 8.3 L 8.6 L Hct 26.1 L 26.6 L MCV MCH MCHC RDW 16.9 H 17.3 H Plt Count Lymph % (Auto) Amelia % (Auto) 9.0 H Eos % (Auto) 4.9 H Lymph # Amelia # 1.0 H Eos # 0.5 H Seg Neutrophils % Seg Neuts % (Manual) Lymphocytes % (Manual) Monocytes % (Manual) Eosinophils % (Manual) Nucleated RBC % Seg Neutrophils # 7.8 H Seg Neutrophils # Man Lymphocytes # (Manual) Monocytes # (Manual) Eosinophils # (Manual) PT INR D-Dimer Heparin Anti-Xa Level POC ABG pH ABG pH POC ABG pCO2 POC ABG pO2 ABG pO2 ABG HCO3 ABG O2 Saturation ABG Base Excess ABG Hemoglobin Oxyhemoglobin Sodium 135 L Potassium 3.3 L Chloride Carbon Dioxide BUN Creatinine Glucose POC Glucose Lactic Acid Calcium 10.9 H Ionized Calcium Phosphorus Magnesium 1.50 L Iron TIBC Ferritin Total Bilirubin Direct Bilirubin AST ALT Alkaline Phosphatase Total Creatine Kinase CK-MB (CK-2) Troponin T C-Reactive Protein Serum Total Protein Total Protein Albumin Chdol-5-Jspcyatsl Qcqxf-8-Twuinnsxn PEP Interpretation Triglycerides LDL Cholesterol Direct HDL Cholesterol Free T4 PTH Intact Urine WBC (Auto) Urine Creatinine Salicylates Acetaminophen Crossmatch 05/04/19 05/04/19 05/04/19 06:49 06:49 11:58 WBC RBC Hgb Hct MCV MCH MCHC RDW Plt Count Lymph % (Auto) Amelia % (Auto) Eos % (Auto) Lymph # Amelia # Eos # Seg Neutrophils % Seg Neuts % (Manual) Lymphocytes % (Manual) Monocytes % (Manual) Eosinophils % (Manual) Nucleated RBC % Seg Neutrophils # Seg Neutrophils # Man Lymphocytes # (Manual) Monocytes # (Manual) Eosinophils # (Manual) PT 15.5 H INR 1.24 H D-Dimer Heparin Anti-Xa Level POC ABG pH ABG pH POC ABG pCO2 POC ABG pO2 ABG pO2 ABG HCO3 ABG O2 Saturation ABG Base Excess ABG Hemoglobin Oxyhemoglobin Sodium Potassium Chloride Carbon Dioxide 19 L BUN Creatinine Glucose POC Glucose 111 H Lactic Acid Calcium 10.7 H Ionized Calcium Phosphorus Magnesium Iron TIBC Ferritin Total Bilirubin Direct Bilirubin AST ALT Alkaline Phosphatase Total Creatine Kinase CK-MB (CK-2) Troponin T C-Reactive Protein Serum Total Protein Total Protein Albumin Nehjn-3-Roonbugvj Clgze-9-Xxofqadov PEP Interpretation Triglycerides LDL Cholesterol Direct HDL Cholesterol Free T4 PTH Intact Urine WBC (Auto) Urine Creatinine Salicylates Acetaminophen Crossmatch 05/05/19 05/05/19 05/07/19 06:14 06:14 05:55 WBC 11.5 H 12.0 H RBC 3.08 L 3.33 L Hgb 8.5 L 9.2 L Hct 26.5 L 28.5 L MCV MCH MCHC RDW 17.1 H 17.6 H Plt Count Lymph % (Auto) Amelia % (Auto) Eos % (Auto) 8.2 H Lymph # Amelia # Eos # 1.0 H Seg Neutrophils % Seg Neuts % (Manual) Lymphocytes % (Manual) Monocytes % (Manual) Eosinophils % (Manual) Nucleated RBC % Seg Neutrophils # 8.2 H Seg Neutrophils # Man Lymphocytes # (Manual) Monocytes # (Manual) Eosinophils # (Manual) PT INR D-Dimer Heparin Anti-Xa Level POC ABG pH ABG pH POC ABG pCO2 POC ABG pO2 ABG pO2 ABG HCO3 ABG O2 Saturation ABG Base Excess ABG Hemoglobin Oxyhemoglobin Sodium 136 L Potassium Chloride Carbon Dioxide 21 L BUN Creatinine Glucose POC Glucose Lactic Acid Calcium 10.3 H Ionized Calcium Phosphorus Magnesium Iron TIBC Ferritin Total Bilirubin Direct Bilirubin AST ALT Alkaline Phosphatase Total Creatine Kinase CK-MB (CK-2) Troponin T C-Reactive Protein Serum Total Protein Total Protein Albumin Yphiu-7-Ofcmwrirp Kfmkp-7-Ycefqtgsz PEP Interpretation Triglycerides LDL Cholesterol Direct HDL Cholesterol Free T4 PTH Intact Urine WBC (Auto) Urine Creatinine Salicylates Acetaminophen Crossmatch 05/07/19 05/08/19 05/08/19 05:55 07:27 07:27 WBC 12.5 H RBC 3.50 L Hgb 9.4 L Hct 30.4 L MCV MCH 27 L MCHC 31 L RDW 17.2 H Plt Count Lymph % (Auto) Amelia % (Auto) Eos % (Auto) 10.3 H Lymph # Amelia # Eos # 1.3 H Seg Neutrophils % Seg Neuts % (Manual) Lymphocytes % (Manual) Monocytes % (Manual) Eosinophils % (Manual) Nucleated RBC % Seg Neutrophils # 8.7 H Seg Neutrophils # Man Lymphocytes # (Manual) Monocytes # (Manual) Eosinophils # (Manual) PT INR D-Dimer Heparin Anti-Xa Level POC ABG pH ABG pH POC ABG pCO2 POC ABG pO2 ABG pO2 ABG HCO3 ABG O2 Saturation ABG Base Excess ABG Hemoglobin Oxyhemoglobin Sodium Potassium 3.5 L Chloride Carbon Dioxide 20 L 20 L BUN Creatinine Glucose POC Glucose Lactic Acid Calcium 10.7 H 10.7 H Ionized Calcium Phosphorus Magnesium Iron TIBC Ferritin Total Bilirubin Direct Bilirubin AST ALT Alkaline Phosphatase Total Creatine Kinase CK-MB (CK-2) Troponin T C-Reactive Protein Serum Total Protein Total Protein Albumin 3.2 L 3.4 L Gxker-1-Qokifuyui Nrehv-0-Mxvwkbuwv PEP Interpretation Triglycerides LDL Cholesterol Direct HDL Cholesterol Free T4 PTH Intact Urine WBC (Auto) Urine Creatinine Salicylates Acetaminophen Crossmatch 05/09/19 05/09/19 05/10/19 05:41 05:41 06:42 WBC 11.7 H RBC 3.27 L Hgb 9.2 L Hct 27.9 L MCV MCH MCHC RDW 17.8 H Plt Count Lymph % (Auto) Amelia % (Auto) Eos % (Auto) 14.3 H Lymph # Amelia # Eos # 1.7 H Seg Neutrophils % Seg Neuts % (Manual) Lymphocytes % (Manual) Monocytes % (Manual) Eosinophils % (Manual) Nucleated RBC % Seg Neutrophils # Seg Neutrophils # Man Lymphocytes # (Manual) Monocytes # (Manual) Eosinophils # (Manual) PT INR 1.17 H D-Dimer Heparin Anti-Xa Level POC ABG pH ABG pH POC ABG pCO2 POC ABG pO2 ABG pO2 ABG HCO3 ABG O2 Saturation ABG Base Excess ABG Hemoglobin Oxyhemoglobin Sodium 136 L Potassium Chloride Carbon Dioxide 21 L BUN Creatinine Glucose POC Glucose Lactic Acid Calcium 10.6 H Ionized Calcium Phosphorus Magnesium Iron TIBC Ferritin Total Bilirubin Direct Bilirubin AST ALT Alkaline Phosphatase Total Creatine Kinase CK-MB (CK-2) Troponin T C-Reactive Protein Serum Total Protein Total Protein Albumin 3.3 L Dxpno-3-Fvjpmacjh Ekpbo-5-Wplzsjxue PEP Interpretation Triglycerides LDL Cholesterol Direct HDL Cholesterol Free T4 PTH Intact Urine WBC (Auto) Urine Creatinine Salicylates Acetaminophen Crossmatch 05/10/19 05/11/19 05/13/19 06:42 04:40 08:32 WBC 11.8 H RBC 3.48 L Hgb 9.5 L Hct 30.0 L MCV MCH 27 L MCHC RDW 18.0 H Plt Count Lymph % (Auto) Amelia % (Auto) Eos % (Auto) Lymph # Amelia # Eos # Seg Neutrophils % Seg Neuts % (Manual) 73.0 H Lymphocytes % (Manual) 11.0 L Monocytes % (Manual) Eosinophils % (Manual) 12.0 H Nucleated RBC % Seg Neutrophils # Seg Neutrophils # Man 8.6 H Lymphocytes # (Manual) Monocytes # (Manual) Eosinophils # (Manual) 1.4 H PT INR D-Dimer Heparin Anti-Xa Level POC ABG pH ABG pH POC ABG pCO2 POC ABG pO2 ABG pO2 ABG HCO3 ABG O2 Saturation ABG Base Excess ABG Hemoglobin Oxyhemoglobin Sodium Potassium Chloride Carbon Dioxide 21 L 20 L BUN Creatinine Glucose POC Glucose Lactic Acid Calcium Ionized Calcium Phosphorus Magnesium Iron TIBC Ferritin Total Bilirubin Direct Bilirubin AST ALT Alkaline Phosphatase Total Creatine Kinase CK-MB (CK-2) Troponin T C-Reactive Protein Serum Total Protein Total Protein Albumin Xwqis-1-Spghzfujt Umpjs-2-Jgvoulftz PEP Interpretation Triglycerides LDL Cholesterol Direct HDL Cholesterol Free T4 PTH Intact Urine WBC (Auto) Urine Creatinine Salicylates Acetaminophen Crossmatch 05/13/19 05/14/19 05/19/19 08:32 08:12 06:47 WBC RBC Hgb Hct MCV MCH MCHC RDW Plt Count Lymph % (Auto) Amelia % (Auto) Eos % (Auto) Lymph # Amelia # Eos # Seg Neutrophils % Seg Neuts % (Manual) Lymphocytes % (Manual) Monocytes % (Manual) Eosinophils % (Manual) Nucleated RBC % Seg Neutrophils # Seg Neutrophils # Man Lymphocytes # (Manual) Monocytes # (Manual) Eosinophils # (Manual) PT INR D-Dimer Heparin Anti-Xa Level POC ABG pH ABG pH POC ABG pCO2 POC ABG pO2 ABG pO2 ABG HCO3 ABG O2 Saturation ABG Base Excess ABG Hemoglobin Oxyhemoglobin Sodium Potassium Chloride Carbon Dioxide 17 L 18 L 18 L BUN Creatinine Glucose 73 L POC Glucose Lactic Acid Calcium Ionized Calcium Phosphorus Magnesium 1.60 L Iron TIBC Ferritin Total Bilirubin Direct Bilirubin AST ALT Alkaline Phosphatase Total Creatine Kinase CK-MB (CK-2) Troponin T C-Reactive Protein Serum Total Protein Total Protein Albumin 3.3 L Sjdvh-7-Ynbcsijmz Cvcvd-6-Obtuwledc PEP Interpretation Triglycerides LDL Cholesterol Direct HDL Cholesterol Free T4 PTH Intact Urine WBC (Auto) Urine Creatinine Salicylates Acetaminophen Crossmatch 05/20/19 05/20/19 05/21/19 06:34 06:34 07:06 WBC RBC 3.22 L Hgb 9.0 L Hct 27.9 L MCV MCH MCHC RDW 18.0 H Plt Count Lymph % (Auto) Amelia % (Auto) Eos % (Auto) Lymph # Amelia # Eos # Seg Neutrophils % Seg Neuts % (Manual) Lymphocytes % (Manual) Monocytes % (Manual) Eosinophils % (Manual) 12.0 H Nucleated RBC % Seg Neutrophils # Seg Neutrophils # Man Lymphocytes # (Manual) Monocytes # (Manual) Eosinophils # (Manual) 1.1 H PT INR D-Dimer Heparin Anti-Xa Level POC ABG pH ABG pH POC ABG pCO2 POC ABG pO2 ABG pO2 ABG HCO3 ABG O2 Saturation ABG Base Excess ABG Hemoglobin Oxyhemoglobin Sodium Potassium Chloride Carbon Dioxide BUN Creatinine Glucose POC Glucose Lactic Acid Calcium Ionized Calcium Phosphorus 2.20 L 2.30 L Magnesium Iron TIBC Ferritin Total Bilirubin Direct Bilirubin AST ALT Alkaline Phosphatase Total Creatine Kinase CK-MB (CK-2) Troponin T C-Reactive Protein Serum Total Protein Total Protein Albumin Rsclc-1-Pkgwhsjgp Vankd-2-Ijypidget PEP Interpretation Triglycerides LDL Cholesterol Direct HDL Cholesterol Free T4 PTH Intact Urine WBC (Auto) Urine Creatinine Salicylates Acetaminophen Crossmatch Chest x-ray: report reviewed (right lower lobe opacity ), image reviewed Allied health notes reviewed: nursing
[2019-05-23] MEDS: PANTOPRAZOLE 40 MG TAB PO SCH (10:24)
[2019-05-23] MEDS: PHOS-NAK POWDER PACKET PO SCH (10:24)
[2019-05-23] MEDS: METOPROLOL SUCCINATE XL 50 MG TAB PO SCH (10:24)
--- NOTE | 2019-05-23 10:44 | Procedure Note ---
Date of procedure: 05/23/19 Pre-op diagnosis: 1) Left AC wound 2) Right heel wound Post-op diagnosis: same Procedure: Debridement of left AC fossa and right heel Description of procedure: Pt was supine on his bed. Left AC fossa was prepped and draped. Necrotic SQ tissue was surgically excisionally debrided with forceps, scissors and a curette. Bleeding was minimal and was controlled with pressure. Pt was repositioned left side down. His right heel was prepped and draped. Necrotic skin and SQ tissue were surgically excisionally debrided with a curette. Bleeding was minimal and was controlled with pressure. Pt tolerated the procedure well. Wounds were dressed by the Wound Care nurse. Final wound measurements: 1) Left AC fossa - 4.5 X 8.1 X 1.3 cm 2) Right heel - 2.4 X 1.5 X 0.4 cm Anesthesia: none Surgeon: BLAKE LIND Estimated blood loss: minimal Pathology: none Specimen disposition: discarded Condition: stable Disposition: no change
--- NOTE | 2019-05-23 13:05 | Discharge Summary ---
Providers - Providers Date of Admission: 03/16/19 22:13 Date of discharge: 05/23/19 Attending physician: JOSEPH HERNÁNDEZ 03/16/19 15:50 Consult to Dietitian/Nutrition [CONS] Routine Physician Instructions: Reason For Exam: Reason for Consult: Evaluate nutritional intake 03/16/19 18:28 Consult to Physician [CONS] Urgent Comment: Consulting Provider: BRADEN MORAN Physician Instructions: Reason For Exam: sepsis, multi organ failure 03/16/19 19:32 Consult to Physician [CONS] Stat Comment: Dr. Faria spoke with Dr. Porter @ 1930 Consulting Provider: LISSETT PORTER Physician Instructions: Reason For Exam: arf, rhabdo, septic shock 03/16/19 19:35 Consult to Physician [CONS] Stat Comment: Consulting Provider: BILLIE CLINE Physician Instructions: Reason For Exam: possible ischemic colitis 03/17/19 09:29 Consult to Physician [CONS] Routine Comment: Consulting Provider: MATTHEW ANNE Physician Instructions: Reason For Exam: sepsis 03/17/19 12:01 Consult to Dietitian/Nutrition [CONS] Routine Physician Instructions: Reason For Exam: Reason for Consult: Write/Manage Tube Feeding 03/17/19 15:43 Consult to Interventional Radiology [CONS] Routine Consulting Provider: HUBER ELI Reason For Exam: VASCATH PLACEMENT Place consult to:: Erick Notified:: yes Phone number called:: yes Was contact made?: Yes If yes, spoke with:: Erick Time called:: 10:00 Comment:: Vascath was placed 03/17/19 16:00 Consult to Physician [CONS] Urgent Comment: Consulting Provider: SANDRA CHRISTENSEN Physician Instructions: Reason For Exam: Hemodialysis catheter placement. 03/19/19 09:46 Consult to Physician [CONS] Routine Comment: Consulting Provider: TOMMY MCKEON Physician Instructions: Reason For Exam: AMS 03/19/19 11:13 Consult to Mental Health [CONS] Routine Reason For Exam: NEUROLEPTIC MALIGNANT SUNDROME Place consult to:: MENTAL HEALTH Notified:: yes Phone number called:: talk Was contact made?: Yes If yes, spoke with:: Nunu Time called:: 12:30 03/22/19 19:54 Consult to Wound/ET Nurse [CONS] Routine Reason For Exam: wound eval 03/24/19 18:45 Consult to Physician [CONS] Routine Comment: Consulting Provider: HUBER LINARES Physician Instructions: Reason For Exam: CHANGE HD CATH TO TRILYSIS CATH 03/26/19 11:59 Consult to PICC Line RN [CONS] Routine Reason For Exam: midline Type Line:: Midline 03/27/19 04:31 Consult to Wound/ET Nurse [CONS] Stat Reason For Exam: wound eval breakdown of top lip under tubeholder. 03/27/19 11:56 Consult to Physician [CONS] Stat Comment: Consulting Provider: MANUELA GONZALEZ Physician Instructions: Reason For Exam: IJ clot, non obstructive 03/28/19 05:25 Consult to Physician [CONS] Routine Comment: Consulting Provider: MYRNA COLIN Physician Instructions: Reason For Exam: bloody stool 04/02/19 14:27 Consult to Physician [CONS] Routine Comment: Consulting Provider: TOMMY MCKEON Physician Instructions: Reason For Exam: reassess neurologic function 04/06/19 10:03 Occupational Therapy Evaluate and Treat [CONS] Routine Comment: Reason For Exam: critical illness myopathy Physical Therapy Evaluation and Treat [CONS] Routine Comment: Reason For Exam: critical illness myopathy 04/07/19 18:37 Speech Therapy Evaluation and Treat [CONS] Routine Reason For Exam: evaluation of swallow function 04/18/19 19:34 Consult to PICC Line RN [CONS] Routine Reason For Exam: difficult stick, is on IV antibiotics. Type Line:: PICC 04/20/19 11:44 Speech Therapy Evaluation and Treat [CONS] Routine Reason For Exam: swallow evaluation 04/20/19 13:18 Consult to Dietitian/Nutrition [CONS] Routine Physician Instructions: Assess nutrtn needs, initiate, modify, manage TF Reason For Exam: Reason for Consult: Write/Manage Tube Feeding Reason for Consult: Write/Manage Tube Feeding 04/24/19 13:00 Consult to Mental Health [CONS] Routine Reason For Exam: Hallucination. (Peope w/Knife [facility] consult to:: mental health Notified:: KADEN Phone number called:: [phone] Was contact made?: Yes If yes, spoke with:: DMITRIY Time called:: 18:00 Comment:: [place] 04/28/19 06:39 Consult to Physician [CONS] Routine Comment: Consulting Provider: LISSETT PORTER Physician Instructions: Reason For Exam: calcium 12.1 04/28/19 09:14 Consult to Wound/ET Nurse [CONS] Routine Reason For Exam: wound eval 05/04/19 12:46 Speech Therapy Evaluation and Treat [CONS] Routine Reason For Exam: Not eating much 05/04/19 13:20 Consult to Physician [CONS] Stat Comment: Bedside debridement for Tuesday. Consulting Provider: BLAKE LIND Physician Instructions: debridement of left antecubital wound Reason For Exam: surgical debridement left antecubital wound 05/09/19 15:13 Consult to Physician [CONS] Routine Comment: Consulting Provider: HUBER LINARES Physician Instructions: Reason For Exam: IVC filter 05/11/19 12:26 Consult to Physician [CONS] Routine Comment: Consulting Provider: JACK HOWELL Physician Instructions: Reason For Exam: Bilateral foot numbness 05/22/19 11:01 Consult to Physician [CONS] Routine Comment: Consulting Provider: TOMMY MCKEON Physician Instructions: Reason For Exam: Re consult /worsening weakness and foot drop Primary care physician: UNIVERSAL BANKER Hospitalization Reason for admission: Acute respiratory failure/ventricular tachycardia Condition: Stable Pertinent studies: CT head CT chest Abdomen and pelvis CT Extremity ultrasound X-ray abdomen Extremity venous Doppler Hospital course: Patient is a 43-year-old man with history of GERD, obesity and mental illness who presented to [facility] ED on 03/16/2019 with altered mental status. He is visiting from [place] and was brought in by his friend. When he came to the ER, he was unable to speak or follow commands, in the ER he was found to have SVT with h eart rate in the 250s. The patient was shocks and medicated. He became more confused and had trouble protecting his airway; therefore, he was then intubated. During this hospital coarse, he was found to have sepsis with septic shock, rhabdomyolysis, RUBEN, and multisystem organ failure. According to the patient's clinical findings, the patient likely has toxic metabolic encephalopathy as well as critical illness myopathy with bilateral foot drop. It patient had bilateral lower extremity DVT status post IVC filter placement Rod recommended to IVC filter for 3 months and then check lower extremity venous Doppler Follow-up with vascular for removal of IVC filter, patient had severe GI bleeding requiring multiple units of PRBC Patient had a long hospital stay with multiple medical problems today Patient feels slightly better, hemodynamically stable, but guarded prognosis Patient is being transferred to alf facility Please refer to medical records for all the other details Discharge diagnosis: --Critical illness myopathy, bilateral foot drop Physical therapy and occupational therapy Significantly improved from last one 2 weeks The aggressive physical therapy and occupational therapy rehabilitation --Peripheral neuropathy; continue gabapentin Supportive care --Toxic metabolic encephalopathy Multifactorial, resolved, continue supportive care --History of bilateral lower extremity DVT; Status post IVC filter placement, vascular evaluated the patient Recommend to continue IVC filter for 3 months, and then check lower extremity Doppler And removal of IVC filter. --History of severe GI bleeding requiring multiple blood transfusions Received 8 units of PRBC, most recent hemoglobin 9 --GI bleed/peptic ulcer disease; extensively evaluated by GI No anticoagulation in view of peptic ulcer severe anemia at this point --History of atrial fibrillation and resolved. Continue current beta blockers, --s/p acute hypoxic respiratory failure requiring intubation Status post extubation, nasal cannula oxygen as needed --NSTEMI: Abnormal Lexiscan, heart normal coronaries. EF 45% --Sepsis/septic shock; resolved --Acute kidney injury; resolved --Rhabdomyolysis; resolved --Thrombocytopenia; no evidence of bleeding, monitor closely. --Moderate malnutrition; nutrition supplements and supportive care --DVT prophylaxis; SCDs --Full code. -- DC planning; placement/transfer to [place] per pt and family Consults and recommendations noted and appreciated Plan of care reviewed with the patient and his nurse Plan of care reviewed with the case management Patient is hemodynamically and clinically stable For discharge and transfer to SNF today Disposition: DC/TX-03 SNF [facility] Time spent for discharge: 35 min Core Measure Documentation - Palliative Care Palliative Care/ Comfort Measures: Not Applicable - Core Measures Any of the following diagnoses?: DVT/PE, none - VTE Discharge Requirements Deep Vein Thrombosis/Pulmonary Embolism Present on Admission: Yes Has pt received <5 days of overlap therapy or INR<2.0: No (IVC filter) Anticoagulant overlap therapy prescribed at discharge: No Contraindication No Overlap Therapy order at DC: Medical Contraindication (life- threatening GI bleed/anemia/peptic ulcer disease) Exam - Constitutional Vitals: Temp Pulse Resp BP Pulse Ox 97.5 F L 72 24 121/70 95 05/23/19 05:00 05/23/19 05:00 05/23/19 05:00 05/23/19 05:00 05/23/19 05:00 General appearance: Present: no acute distress, well-nourished - EENT Eyes: Present: PERRL, EOM intact - Neck Neck: Present: supple, normal ROM - Respiratory Respiratory effort: normal Respiratory: bilateral: diminished, negative: rales, rhonchi, wheezing - Cardiovascular Rhythm: regular Heart Sounds: Present: S1 & S2 - Extremities Extremities: no ischemia, abnormal (lower extremity weakness, bilateral foot drop) - Abdominal General gastrointestinal: Present: soft, non-tender, normal bowel sounds - Integumentary Integumentary: Present: clear, warm - Musculoskeletal Musculoskeletal: generalized weakness, other (dannie lateral lower extremity weakness ) - Psychiatric Psychiatric: appropriate mood/affect, cooperative - Neurologic Neurologic: other (residual weakness bilateral lower extremities) Plan Activity: advance as tolerated, fall precautions Diet: regular Special Instructions: physical therapy, occupational therapy Additional Instructions: Advised to follow with neurologist, vascular, pulmonary critical. Wound Care, surgery per schedule. Fall precautions Follow up with: PRIMARY CARE, [Primary Care Provider] - 3-5 Days BLAKE LIND MD [Staff Physician] - 7 Days ZAHIDA ARRIAGA MD [Staff Physician] - 7 Days DAINA BARRERA MD [Staff Physician] - 7 Days HUBER ELI MD [Staff Physician] - 7 Days Prescriptions: Bacitracin Zinc Oint [Antibiotic Oint] 1 applic TP Q4H PRN #7 tube PRN Reason: upper lip sore/open Gabapentin 300 mg PO Q8HR #90 capsule Melatonin [Melatonin 5MG TAB] 5 mg PO QHS PRN #14 tablet PRN Reason: Sleep Metoprolol Xl [Metoprolol SUCCINATE ER TAB] 50 mg PO QDAY #30 tablet HYDROcodone/APAP 5-325 [Thermal 5-325 mg TAB] 1 each PO BID PRN #20 tablet PRN Reason: Pain, Moderate (4-6) Pot Phosphate/Na Phosphate [Phos-Nak] 1 each PO Q12HR #10 powd.pack Pantoprazole [Protonix TAB] 40 mg PO BID #60 tablet
== END 2019-05-23 15:00 | DRG 853 ==
LOC: ED 15:24 → CC1 22:13 → IMCU 04-10 15:31 → 3A 04-24 17:53
PROVIDERS: ADMIT Internal Medicine; ATTEND Internal Medicine
PROC: 4A033R1 Measurement of Arterial Saturation, Peripheral, Percutaneous Approach (ICD-10-PCS; principal; 2019-03-16)
PROC: 5A1955Z Respiratory Ventilation, Greater than 96 Consecutive Hours (ICD-10-PCS; 2019-03-16)
PROC: 0BH17EZ Insertion of Endotracheal Airway into Trachea, Via Natural or Artificial Opening (ICD-10-PCS; 2019-03-16)
PROC: 04HY32Z Insertion of Monitoring Device into Lower Artery, Percutaneous Approach (ICD-10-PCS; 2019-03-17)
PROC: 5A1D70Z Performance of Urinary Filtration, Intermittent, Less than 6 Hours Per Day (ICD-10-PCS; 2019-03-18)
PROC: 02HV33Z Insertion of Infusion Device into Superior Vena Cava, Percutaneous Approach (ICD-10-PCS; 2019-03-18)
PROC: B548ZZA Ultrasonography of Superior Vena Cava, Guidance (ICD-10-PCS; 2019-03-18)
PROC: 5A1D70Z Performance of Urinary Filtration, Intermittent, Less than 6 Hours Per Day (ICD-10-PCS; 2019-03-19)
PROC: 5A1D70Z Performance of Urinary Filtration, Intermittent, Less than 6 Hours Per Day (ICD-10-PCS; 2019-03-20)
PROC: 5A1D70Z Performance of Urinary Filtration, Intermittent, Less than 6 Hours Per Day (ICD-10-PCS; 2019-03-22)
PROC: 5A1D70Z Performance of Urinary Filtration, Intermittent, Less than 6 Hours Per Day (ICD-10-PCS; 2019-03-23)
PROC: 5A1D70Z Performance of Urinary Filtration, Intermittent, Less than 6 Hours Per Day (ICD-10-PCS; 2019-03-24)
PROC: 5A1D70Z Performance of Urinary Filtration, Intermittent, Less than 6 Hours Per Day (ICD-10-PCS; 2019-03-26)
PROC: 05PYX3Z Removal of Infusion Device from Upper Vein, External Approach (ICD-10-PCS; 2019-03-27)
PROC: 02HV33Z Insertion of Infusion Device into Superior Vena Cava, Percutaneous Approach (ICD-10-PCS; 2019-03-27)
PROC: 5A1D70Z Performance of Urinary Filtration, Intermittent, Less than 6 Hours Per Day (ICD-10-PCS; 2019-03-28)
PROC: 0DJ08ZZ Inspection of Upper Intestinal Tract, Via Natural or Artificial Opening Endoscopic (ICD-10-PCS; 2019-03-28)
PROC: 0W3P8ZZ Control Bleeding in Gastrointestinal Tract, Via Natural or Artificial Opening Endoscopic (ICD-10-PCS; 2019-03-28)
PROC: 5A1D70Z Performance of Urinary Filtration, Intermittent, Less than 6 Hours Per Day (ICD-10-PCS; 2019-03-29)
PROC: 5A1D70Z Performance of Urinary Filtration, Intermittent, Less than 6 Hours Per Day (ICD-10-PCS; 2019-03-31)
PROC: 5A1D70Z Performance of Urinary Filtration, Intermittent, Less than 6 Hours Per Day (ICD-10-PCS; 2019-04-02)
PROC: 5A1D70Z Performance of Urinary Filtration, Intermittent, Less than 6 Hours Per Day (ICD-10-PCS; 2019-04-04)
PROC: 5A1D70Z Performance of Urinary Filtration, Intermittent, Less than 6 Hours Per Day (ICD-10-PCS; 2019-04-06)
PROC: 5A1D70Z Performance of Urinary Filtration, Intermittent, Less than 6 Hours Per Day (ICD-10-PCS; 2019-04-09)
PROC: 5A1D70Z Performance of Urinary Filtration, Intermittent, Less than 6 Hours Per Day (ICD-10-PCS; 2019-04-11)
PROC: 5A09357 Assistance with Respiratory Ventilation, Less than 24 Consecutive Hours, Continuous Positive Airway Pressure (ICD-10-PCS; 2019-04-11)
PROC: 5A09357 Assistance with Respiratory Ventilation, Less than 24 Consecutive Hours, Continuous Positive Airway Pressure (ICD-10-PCS; 2019-04-12)
PROC: 5A1D70Z Performance of Urinary Filtration, Intermittent, Less than 6 Hours Per Day (ICD-10-PCS; 2019-04-13)
PROC: 5A09357 Assistance with Respiratory Ventilation, Less than 24 Consecutive Hours, Continuous Positive Airway Pressure (ICD-10-PCS; 2019-04-13)
PROC: 5A09357 Assistance with Respiratory Ventilation, Less than 24 Consecutive Hours, Continuous Positive Airway Pressure (ICD-10-PCS; 2019-04-14)
PROC: 5A09357 Assistance with Respiratory Ventilation, Less than 24 Consecutive Hours, Continuous Positive Airway Pressure (ICD-10-PCS; 2019-04-15)
PROC: 5A1D70Z Performance of Urinary Filtration, Intermittent, Less than 6 Hours Per Day (ICD-10-PCS; 2019-04-18)
PROC: 5A09357 Assistance with Respiratory Ventilation, Less than 24 Consecutive Hours, Continuous Positive Airway Pressure (ICD-10-PCS; 2019-04-18)
PROC: 5A1D70Z Performance of Urinary Filtration, Intermittent, Less than 6 Hours Per Day (ICD-10-PCS; 2019-04-20)
PROC: 0DB68ZX Excision of Stomach, Via Natural or Artificial Opening Endoscopic, Diagnostic (ICD-10-PCS; 2019-05-08)
PROC: 0DB78ZX Excision of Stomach, Pylorus, Via Natural or Artificial Opening Endoscopic, Diagnostic (ICD-10-PCS; 2019-05-08)
PROC: 0JBH0ZZ Excision of Left Lower Arm Subcutaneous Tissue and Fascia, Open Approach (ICD-10-PCS; 2019-05-09)
PROC: 06H03DZ Insertion of Intraluminal Device into Inferior Vena Cava, Percutaneous Approach (ICD-10-PCS; 2019-05-10)
PROC: 4A023N7 Measurement of Cardiac Sampling and Pressure, Left Heart, Percutaneous Approach (ICD-10-PCS; 2019-05-10)
PROC: B2111ZZ Fluoroscopy of Multiple Coronary Arteries using Low Osmolar Contrast (ICD-10-PCS; 2019-05-10)
PROC: B2151ZZ Fluoroscopy of Left Heart using Low Osmolar Contrast (ICD-10-PCS; 2019-05-10)
PROC: 0JBH0ZZ Excision of Left Lower Arm Subcutaneous Tissue and Fascia, Open Approach (ICD-10-PCS; 2019-05-16)
PROC: 0JBH0ZZ Excision of Left Lower Arm Subcutaneous Tissue and Fascia, Open Approach (ICD-10-PCS; 2019-05-23)
PROC: 0JBR0ZZ Excision of Left Foot Subcutaneous Tissue and Fascia, Open Approach (ICD-10-PCS; 2019-05-23)
DX: A41.9 Sepsis, unspecified organism (principal); R65.21 Severe sepsis with septic shock; J69.0 Pneumonitis due to inhalation of food and vomit; J96.01 Acute respiratory failure with hypoxia; I46.9 Cardiac arrest, cause unspecified; K72.00 Acute and subacute hepatic failure without coma; I21.4 Non-ST elevation (NSTEMI) myocardial infarction; G92 Toxic encephalopathy; K27.4 Chronic or unspecified peptic ulcer, site unspecified, with hemorrhage; I50.43 Acute on chronic combined systolic (congestive) and diastolic (congestive) heart failure; G03.9 Meningitis, unspecified; N17.0 Acute kidney failure with tubular necrosis; I82.413 Acute embolism and thrombosis of femoral vein, bilateral; I82.621 Acute embolism and thrombosis of deep veins of right upper extremity; I47.1 Supraventricular tachycardia; I47.2 Ventricular tachycardia; E87.1 Hypo-osmolality and hyponatremia; L03.111 Cellulitis of right axilla; N30.00 Acute cystitis without hematuria; I42.9 Cardiomyopathy, unspecified; D62 Acute posthemorrhagic anemia; I48.92 Unspecified atrial flutter; G72.81 Critical illness myopathy; N25.81 Secondary hyperparathyroidism of renal origin; E44.0 Moderate protein-calorie malnutrition; S91.301A Unspecified open wound, right foot, initial encounter; K20.9 Esophagitis, unspecified; S51.002A Unspecified open wound of left elbow, initial encounter; E83.42 Hypomagnesemia; K21.9 Gastro-esophageal reflux disease without esophagitis; Z68.28 Body mass index [BMI] 28.0-28.9, adult; D69.6 Thrombocytopenia, unspecified; E66.01 Morbid (severe) obesity due to excess calories; K52.9 Noninfective gastroenteritis and colitis, unspecified; E16.2 Hypoglycemia, unspecified; E87.5 Hyperkalemia; Z66 Do not resuscitate; I48.0 Paroxysmal atrial fibrillation; R13.10 Dysphagia, unspecified; L30.8 Other specified dermatitis; K75.89 Other specified inflammatory liver diseases; E83.52 Hypercalcemia; G62.9 Polyneuropathy, unspecified; E83.39 Other disorders of phosphorus metabolism; M21.372 Foot drop, left foot; M21.371 Foot drop, right foot
CPT/HCPCS: 31500; 36415; 36430; 36600; 37191; 70450; 70551; 71045; 71046; 71250; 74018; 74176; 78452; 80048; 80053; 80061; 80074; 80076; 80202; 80307; 80320; 81001; 82140; 82306; 82310; 82330; 82550; 82553; 82570; 82607; 82652; 82728; 82747; 82803; 82962; 83520; 83550; 83735; 83970; 84100; 84132; 84145; 84165; 84166; 84300; 84439; 84443; 84478; 84484; 85007; 85014; 85018; 85025; 85027; 85049; 85379; 85384; 85520; 85610; 85730; 86021; 86038; 86140; 86160; 86334; 86850; 86900; 86901; 86920; 87040; 87086; 87116; 87205; 87400; 87430; 87806; 88305; 88342; 89050; 93005; 93010; 93017; 93306; 93458; 93925; 93970; 94002; 94003; 94640; 94660; 94760; 95819; G0378; A6260; A9502; C1880; C1894; C9113; G0480; J0153; J0171; J0282; J0330; J0360; J0610; J0630; J0692; J0696; J0885; J1200; J1265; J1450; J1644; J1720; J1940; J1956; J2020; J2060; J2250; J2370; J2405; J2430; J2501; J2543; J2597; J2704; J2720; J2765; J2785; J2916; J2930; J3010; J3370; J3475; J3490; J7030; J7040; J7050; J7060; J7070; P9016; P9017; P9047; Q9967